=== PATIENT | male | born 1955 | race Caucasian/White ===

== ENCOUNTER 2017-03-15 03:37 | Emergency (ER) | payer BC, OTHER ==
[~2017-03-15] VITALS: Ht 175.3 cm; Wt 102.1 kg
[~2017-03-15 03:37] MED LIST: AMLODIPINE BESY10 MG PO; ASPIR-LOW81 MG PO; AUGMENTIN 875-1 EACH PO; BACTRIM DS TAB1 EACH PO; BENADRYL25 MG PO; CHLORTHALIDONE25 MG PO; CIPRO500 MG PO; CRUTCH1 EACH; CYCLOBENZAPRINE10 MG PO; DIAZEPAM5 MG PO; FLEXERIL10 MG PO; GABAPENTIN300 MG PO; HYDROCODON-ACE1 EAC8 PO; KLOR-CON 1010 MEQ PO; LASIX20 MG PO; LASIX40 MG PO; LOTRISONE CREAM15 GM TOP; MELOXICAM15 MG PO; METFORMIN HCL500 MG PO; METOPROLOL TART50 MG PO; NAPROSYN500 MG PO; NIACIN500 MG PO; NORCO 10-325 T1 EACH PO; NORCO 5-325 TA1 EACH PO; NORVASC10 MG PO; OMEPRAZOLE20 M1 PO; OMEPRAZOLE20 MG PO; PERCOCET 10-321 EACH PO; PERCOCET 7.5-31 EACH PO; PROVENTIL HFA6.7 GM INH; RANITIDINE HCL300 MG PO; REGLAN10 MG PO; SIMVASTATIN40 MG PO; TRAMADOL HCL50 MG PO; VITAMIN D1000 UNI1 PO
--- NOTE | 2017-03-15 16:48 | EKG ---
[facility] [address] [facility] [place] [address] Signed Sinus rhythm with occasional premature ventricular complexes Left axis deviation ST elevation in V2-V4 suggestive of Anterior wall myocardial infarction Abnormal ECG When compared with ECG of 23-FEB-2017 15:51, premature ventricular complexes are now present Reconfirmed by KIMMIE GONZALEZ MD ([id number]) on 03/15/2017 4:48:39 PM Electronically Signed By: KIMMIE GONZALEZ MD 03/15/17 1644 Electronically Signed By: KIMMIE GONZALEZ MD 03/15/17 1648 PATIENT NAME: RON MCKEON Electrocardiogram DATE OF : 53 PHYSICIAN: KIMMIE GONZALEZ MD REPORT #: [id number] REPORT IS CONFIDENTIAL AND NOT TO BE RELEASED WITHOUT AUTHORIZATION
--- NOTE | 2017-03-15 16:49 | EKG ---
[facility] [address] [facility] [place] [address] Signed Sinus rhythm with occasional premature ventricular complexes Left axis deviation Low voltage QRS ST elevation, consider anterolateral injury or acute infarct ACUTE NV / STEMI Abnormal ECG When compared with ECG of 15-MAR-2017 03:40, (Unconfirmed) ST more elevated in Anterior leads Confirmed by KIMMIE GONZALEZ MD ([id number]) on 03/15/2017 4:48:54 PM Electronically Signed By: KIMMIE GONZALEZ MD 03/15/17 1649 PATIENT NAME: RON MCKEON Electrocardiogram DATE OF : 53 PHYSICIAN: KIMMIE GONZALEZ MD REPORT #: [id number] REPORT IS CONFIDENTIAL AND NOT TO BE RELEASED WITHOUT AUTHORIZATION
== END 2017-03-15 05:12 | disposition short-term general hospital (02) ==
LOC: ED 03:37
DX: I21.09 ST elevation (STEMI) myocardial infarction involving other coronary artery of anterior wall (principal); I10 Essential (primary) hypertension; E11.9 Type 2 diabetes mellitus without complications; E78.00 Pure hypercholesterolemia, unspecified; E78.5 Hyperlipidemia, unspecified; F17.210 Nicotine dependence, cigarettes, uncomplicated; Z90.49 Acquired absence of other specified parts of digestive tract; Z79.899 Other long term (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; Z79.82 Long term (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; Z79.84 Long term (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 of oral hypoglycemic drugs
CPT/HCPCS: 71010; 80053; 84484; 85025; 93005; 93010; 96374; 96375; 99285; J1644; J2270

== ENCOUNTER 2017-05-09 21:46 | Emergency (ER) | payer BC, OTHER ==
[~2017-05-09] VITALS: Ht 175.3 cm; Wt 102.1 kg
[2017-05-09] MEDS ORDERED: ZESTRIL5 MG PO (22:02)
[2017-05-09] MEDS ORDERED: CARVEDILOL3.125 MG PO (22:02)
[2017-05-09] MEDS ORDERED: CLOPIDOGREL75 MG PO (22:03)
[2017-05-09] MEDS ORDERED: ATORVASTATIN CA40 MG PO (22:04)
[2017-05-09] MEDS ORDERED: NORCO 5-325 TA1 EACH PO (23:16)
== END 2017-05-09 23:43 | disposition home or self-care (01) ==
LOC: ED 21:46
DX: G57.93 Unspecified mononeuropathy of bilateral lower limbs (principal); I25.2 Old myocardial infarction; E78.00 Pure hypercholesterolemia, unspecified; I10 Essential (primary) hypertension; Z87.891 Personal history of nicotine dependence; Z86.74 Personal history of sudden cardiac arrest; Z90.49 Acquired absence of other specified parts of digestive tract; Z79.899 Other long term (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; Z79.82 Long term (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
CPT/HCPCS: 93971; 99284

== ENCOUNTER 2017-05-12 19:47 | Emergency (ER) | payer BC, OTHER ==
[~2017-05-12] VITALS: Ht 175.3 cm; Wt 83.9 kg
[~2017-05-12 19:47] MED LIST changes: +ATORVASTATIN CA40 MG PO; +CARVEDILOL3.125 MG PO; +CLOPIDOGREL75 MG PO; +ZESTRIL5 MG PO
[2017-05-12] MEDS ORDERED: NEURONTIN300 MG PO (21:14)
[2017-05-12] MEDS ORDERED: ULTRAM50 MG PO (21:14)
== END 2017-05-12 21:25 | disposition home or self-care (01) ==
LOC: ED 19:47
DX: G57.93 Unspecified mononeuropathy of bilateral lower limbs (principal); I10 Essential (primary) hypertension; I25.2 Old myocardial infarction; E78.00 Pure hypercholesterolemia, unspecified; Z87.891 Personal history of nicotine dependence; Z90.79 Acquired absence of other genital organ(s); Z79.899 Other long term (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; Z79.82 Long term (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; Z79.84 Long term (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 of oral hypoglycemic drugs
CPT/HCPCS: 99283

== ENCOUNTER 2017-07-08 23:57 | Emergency (ER) | payer BC, OTHER ==
[~2017-07-08] VITALS: Ht 175.3 cm; Wt 83.9 kg
[~2017-07-08 23:57] MED LIST changes: +NEURONTIN300 MG PO; +ULTRAM50 MG PO
[2017-07-09] MEDS ORDERED: TRAMADOL HCL50 MG PO (00:29)
== END 2017-07-09 00:51 | disposition home or self-care (01) ==
LOC: ED 23:57
DX: G62.9 Polyneuropathy, unspecified (principal); E78.00 Pure hypercholesterolemia, unspecified; I10 Essential (primary) hypertension; I25.2 Old myocardial infarction; Z87.891 Personal history of nicotine dependence; Z90.49 Acquired absence of other specified parts of digestive tract; Z95.5 Presence of coronary angioplasty implant and graft; Z79.899 Other long term (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; Z79.82 Long term (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
CPT/HCPCS: 99283

== ENCOUNTER 2017-09-07 23:35 | Emergency (ER) | payer BC, OTHER ==
[~2017-09-07] VITALS: Ht 175.3 cm; Wt 94.8 kg
[~2017-09-07 23:35] MED LIST changes: -RANITIDINE HCL300 MG PO; -ZESTRIL5 MG PO
--- NOTE | 2017-09-08 06:40 | EKG ---
[facility] [address] [facility] [place] [address] Signed Normal sinus rhythm Left axis deviation Nonspecific intraventricular block T wave abnormality, consider lateral ischemia Abnormal ECG When compared with ECG of 15-MAR-2017 04:28, Significant changes have occurred Confirmed by NEREYDA VELEZ MD ([id number]) on 09/08/2017 6:39:49 AM Electronically Signed By: NEREYDA VELEZ MD 09/08/17 0640 PATIENT NAME: RON MCKEON Electrocardiogram DATE OF : 53 PHYSICIAN: NEREYDA VELEZ MD REPORT #: [id number] REPORT IS CONFIDENTIAL AND NOT TO BE RELEASED WITHOUT AUTHORIZATION
== END 2017-09-08 03:46 | disposition home or self-care (01) ==
LOC: ED 23:35
DX: R11.2 Nausea with vomiting, unspecified (principal); R51 Headache; I25.2 Old myocardial infarction; E78.00 Pure hypercholesterolemia, unspecified; I10 Essential (primary) hypertension; Z87.891 Personal history of nicotine dependence; Z95.5 Presence of coronary angioplasty implant and graft; Z90.49 Acquired absence of other specified parts of digestive tract; Z79.82 Long term (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; Z79.899 Other long term (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
CPT/HCPCS: 80053; 84484; 85025; 93005; 93010; 96374; 96375; 99284; J1170; J2405

== ENCOUNTER 2017-10-03 04:49 | Emergency (ER) | payer BC, OTHER ==
[~2017-10-03] VITALS: Ht 175.3 cm; Wt 94.8 kg
--- OUTSIDE RECORDS SUMMARY | 2017-10-03 05:14 | XMS | Clinical Summary ---
Demographics + + + | Address | [address] [place] [address] [address] | | | [place] [address] | + + + | Home Phone | | + + + | Preferred Language | Unknown | + + + | Marital Status | | + + + | Faith Affiliation | NRP | + + + | Race | White | + + + | Ethnic Group | Not or | + + + Author + + + | Author | [facility] | + + + | Organization | [facility] | + + + | Address | Unknown | + + + | Phone | Unavailable | + + + Support +------+ + + + + | Name | Relationship | Address | Phone | +------+ + + + + ECON | [address] | | [place] [address] | +------+ + + + + Care Team Providers + +------+ + | Care Vacuum Tester Cans Name | Role | Phone | + +------+ + | Jamal Guerrero MD | PP | | + +------+ + Source Comments EULOGIO is fully live on both [facility] Ambulatory and [facility] InPatient.[facility] Allergies No Known Allergies Current Medications + + +---------+---------+------+------+-------+ | Prescription | Sig. | Disp. | Refills | Star | End | Statu | | | | | | t | Date | s | | | | | | Date | | | + + +---------+---------+------+------+-------+ | Aspirin 81 mg Oral | Take 81 mg by mouth | | | | | Activ | | Tablet | once daily. | | | | | e | + + +---------+---------+------+------+-------+ | metFORMIN 500 mg | Take 500 mg by mouth | | | | | Activ | | oral tablet | two times daily. | | | | | e | + + +---------+---------+------+------+-------+ | ranitidine 300 mg | Take 300 mg by mouth | | | | | Activ | | oral | once daily. | | | | | e | | tabletIndications: | Indications: | | | | | | | Heartburn | Heartburn | | | | | | + + +---------+---------+------+------+-------+ | warfarin 5 mg oral | Take 10 mg by mouth | 45 | 1 | / | | Activ | | tabletIndications: | on 04/02/2017, then | tablet | | 03/26 | | e | | JAVON thrombus | take 7.5 mg (one and | | | 17 | | | | | one-half tablets) | | | | | | | | daily starting | | | | | | | | 04/03/2017 | | | | | | | | Indications: JAVON | | | | | | | | thrombus | | | | | | + + +---------+---------+------+------+-------+ | acetaminophen 500 | Take 2 tablets by | 50 | 0 | 07/2 | | Activ | | mg oral | mouth three times | tablet | | 7/20 | | e | | tabletIndications: | daily as needed for | | | 17 | | | | Pain | moderate pain. | | | | | | | | Indications: Pain | | | | | | + + +---------+---------+------+------+-------+ | artificial tears | Instill 1 drop into | 15 mL | 0 | 07/2 | | Activ | | (dextran | both eyes as needed | | | 7/20 | | e | | 70-hypromellose) | (Dry Eyes). | | | 17 | | | | 0.1-0.3 % ophthalmic | Indications: Dry Eye | | | | | | | dropsIndications: | | | | | | | | Dry Eye | | | | | | | + + +---------+---------+------+------+-------+ | atorvastatin 40 mg | Take 1 tablet by | 30 | 0 | 07/2 | | Activ | | oral | mouth once daily. | tablet | | 7/20 | | e | | tabletIndications: | Indications: | | | 17 | | | | myocardial | myocardial | | | | | | | infarction | infarction | | | | | | | prevention | prevention | | | | | | + + +---------+---------+------+------+-------+ | clopidogrel 75 mg | Take 1 tablet by | 30 | 0 | 07/2 | | Activ | | oral | mouth once daily. | tablet | | 7/20 | | e | | tabletIndications: | Indications: | | | 17 | | | | myocardial | myocardial | | | | | | | infarction | infarction | | | | | | | prevention | prevention | | | | | | + + +---------+---------+------+------+-------+ | cholecalciferol | Take 1 tablet by | 30 | 0 | 07/2 | | Activ | | (Vitamin D3) | mouth once daily. | tablet | | 7/20 | | e | | (VITAMIN D3) 1,000 | Indications: Vitamin | | | 17 | | | | unit oral | D Deficiency | | | | | | | tabletIndications: | | | | | | | | Vitamin D Deficiency | | | | | | | + + +---------+---------+------+------+-------+ | isosorbide | Take 1 tablet by | 30 | 0 | 07/2 | | Activ | | mononitrate CR 30 mg | mouth once daily. | tablet | | 7/20 | | e | | oral tablet | Indications: Chronic | | | 17 | | | | extended release 24 | Stable Angina | | | | | | | hrIndications: | Pectoris | | | | | | | Chronic Stable | | | | | | | | Angina Pectoris | | | | | | | + + +---------+---------+------+------+-------+ | lisinopril 5 mg | Take 1 tablet by | 30 | 0 | 07/2 | | Activ | | oral | mouth once daily. | tablet | | 7/20 | | e | | tabletIndications: | Indications: | | | 17 | | | | myocardial | Myocardial | | | | | | | infarction | Infarction | | | | | | + + +---------+---------+------+------+-------+ | melatonin 3 mg | Take 1 tablet by | 30 | 0 | 07/2 | | Activ | | oral | mouth once daily in | tablet | | 7/20 | | e | | tabletIndications: | the evening. | | | 17 | | | | Delirium | Indications: | | | | | | | | Delirium | | | | | | + + +---------+---------+------+------+-------+ | metoprolol | Take 1 tablet by | 30 | 0 | 07/2 | | Activ | | succinate 25 mg oral | mouth once daily. | tablet | | 7/20 | | e | | tablet extended | Indications: | | | 17 | | | | release 24 | Myocardial | | | | | | | hrIndications: | Reinfarction | | | | | | | Myocardial | Prevention | | | | | | | Reinfarction | | | | | | | | Prevention | | | | | | | + + +---------+---------+------+------+-------+ | oxyCODONE | Take 1-2 tablets by | 50 | 0 | 07/2 | | Activ | | (immediate release) | mouth every four | tablet | | 7/20 | | e | | 5 mg oral | hours as needed for | | | 17 | | | | tabletIndications: | severe pain. | | | | | | | Pain | Indications: Pain | | | | | | + + +---------+---------+------+------+-------+ | polyethylene | Mix 1 packet and | 30 | 0 | 07/2 | | Activ | | glycol 17 gram oral | take orally twice | packet | | 7/20 | | e | | powder in | daily as needed | | | 17 | | | | packetIndications: | (constipation). | | | | | | | constipation | Indications: | | | | | | | | constipation | | | | | | + + +---------+---------+------+------+-------+ | senna-docusate | Take 1 tablet by | 30 | 0 | 03/08 | | Activ | | 8.6-50 mg oral | mouth two times | tablet | | 03/26 | | e | | tabletIndications: | daily. Hold for | | | 17 | | | | constipation | loose stools | | | | | | | | Indications: | | | | | | | | constipation | | | | | | + + +---------+---------+------+------+-------+ Active Problems + + + | Problem | Noted Date | + + + | Generalized pain | 03/24/2017 | + + + + + | Last Assessment & Plan: Variously reports in back, calves, | | inguinal regions bilaterally. Takes hydrocodone at home, 10-325 | | q6. -oxy 5-15 q3prn -apap 650 q6 (got 1000 q6 for about 7 days) | | - for breakthrough, has not required in some time -lido patches | | added 03/24 | + + + + + | Acute delirium | 03/23/2017 | + + + + + | Last Assessment & Plan: With sleep-wake disturbance. | | -Frequent reorientation, maintenance of sleep-wake cycles | | -seroquel qHS | + + + + + | Primary insomnia | 03/23/2017 | + + + + + | Last Assessment & Plan: More evident since extubation and | | sedation wean. 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 | + + + + + | Abdominal aortic aneurysm (AAA) without rupture (HCC) | 03/18/2017 | + + + + + | Last Assessment & Plan: Disclosed by ultrasound 03/17. 3.9cm | | at widest. Infrarenal. | + + + + + | Opacity of lung on imaging study | 03/16/2017 | + + + + + | Last Assessment & Plan: Greatest in RUL. Asp pna vs pulmonary | | edema. 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 | | -secretions improving, cough strong -s/p 7 days | | vanc-mazin 03/15-03/22 -not following with imaging -continue daily | | CBC | + + + + + | Stress hyperglycemia | 03/16/2017 | + + + + + | Last Assessment & Plan: Endotool from admission | | -transitioned to subcu 03/24 | + + + + + | Coronary 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 | 03/15/2017 | + + + | At risk for electrolyte imbalance | 03/15/2017 | + + + + + | Last Assessment & Plan: Renal function set and magnesium | | dailyICU lytes protocol begun 710 PM as EGFR came below 6020 meq | | KCl (PO) qAM scheduled started 03/23PM dose of 20 KCl started | | 03/24K > 4.5, Mag > 2.5 | |K > 4.5, Mag > 2.5 | + + + + + | Neck pain | 02/19/2012 | + + + | Facet arthropathy, cervical | 02/19/2012 | + + + | Cervical spondylosis without myelopathy | 02/19/2012 | + + + | Impingement syndrome of left shoulder | 02/19/2012 | + + + | Physical deconditioning | 02/19/2012 | + + + + + | Last Assessment & Plan: PT IScheryl | | -emphasizing long rehab process ahead | + + + + + | Post traumatic stress disorder | 02/19/2012 | + + + | Smoking | 02/19/2012 | + + + | Cervicogenic headache | 02/19/2012 | + + + | Tobacco use | | + + + + + | Last Assessment & Plan: Patient has stated he is "done" | | smoking and has declined nicotine replacement. | + + + +---+ | Hypertension | | + +---+ | Hypercholesterolemia | | + +---+ Resolved Problems + + + + | Problem | Noted | Resolved | | | Date | Date | + + + + | On tube feeding diet | 03/20/20 | | | | 17 | 7 | + + + + + + | Last Assessment & Plan: RD note 03/20:"Rec changing TF formula | | to Replete without fiber (high protein formula in EPIC) @ 55 | | ml/hr x 22 hrs/day (hold one hour before and after warfarin) + 2 | | packets prosource BID to provide 1450 kcal (1808 kcal with | | propofol), 137g pro, and ~1000 ml useable fluid/day-When propofol | | is weaning down, increase Replete to 70 ml/hr x 22 hrs/day (hold | | for warfarin) + one packet prosource TID to provide 1720 kcal, | | 144g pro, and ~1290 ml useable fluid per day" -continuous feeds | | stopped 03/24 AM -will start night time feeds if PO not adequate | + + + + + + | Hypernatremia | 03/20/20 | | | | 17 | 7 | + + + + + + | Last Assessment & Plan: Has been climbing since admission. | | 4.5L FWD 03/21. Will diurese with free water replacement beginning | | today.03/22: increase FW flushes to 125/hr | + + + + + + | Tachypnea | 03/20/20 | | | | 17 | 7 | + + + + + + | Last Assessment & Plan: Two tachypneic episodes overnight | | requiring oxygen requirement. Suspect pulmonary edema with likely | | pain vs agitation vs fever component. -monitor closely -CXR | | shows worsening groundglass opacity in 24hr interval | + + + + + + | Shivering | 03/18/20 | | | | 17 | 7 | + + + + + + | Last Assessment & Plan: In setting of TTM. Causing | | desaturation. Requiring propofol rates as high as 60. Will dc | | TTM. -03/19: still intermittent w/o TTM, but not causing desats | | -continue to monitor | + + + + + + | Abnormal CK | 03/17/20 | | | | 17 | 7 | + + + + + + | Last Assessment & Plan: 10,000 --> to 15K --> back to 10K | | Lactate stable, cleared | | Cr up a tick in setting of vigorous diuresis | | Unclear if related to STEMI vs left foot | | ECMO now out | + + + + + + | Cardiogenic shock (HCC) | 03/15/20 | | | | 17 | 7 | + + + + + + | Last Assessment & Plan: S/p IABP 03/15 - 03/16 | | S/p VA ECMO 03/15-03/19 | | IABP and R fem venous sheath dc'd 03/16 PM | | Epi at 0.02 | | ECHO 03/17: | | akinetic LAD, apical lateral segments | | hypokinetic RCA, mid-anterolateral segments | | Overall LV function has been improving | | -a-line dc'd 03/23 | + + + + + + | Acute kidney injury (HCC) | 03/15/20 | | | | 17 | 7 | + + + + + + | Last Assessment & Plan: Cr stable at 1.3 --> 1.5 | | Excellent UOP | | On lasix gtt, now at 10mg/hr | | Holding nephrotoxic agents as able | + + + + + + | Lactic acid acidosis | 03/15/20 | | | | 17 | 7 | + + + + + + | Last Assessment & Plan: Improved, not following lactate | + + + + + + | Acute respiratory failure with hypoxia and hypercapnia ([facility]) | 03/15/20 | | | | 17 | 7 | + + + + + + | Last Assessment & Plan: Had waxing and waning vent | | requirements during first week of stayExtubated 03/22, started on | | NC B7Sozja infusion begun 03/22 for daily goal -1 to -2LAfterload | | reduction for SBC < 130 to prevent flash pulmonary edema | + + + + + + | STEMI (ST elevation myocardial infarction) ([facility]) | 03/15/20 | | | | 17 | 7 | + + + + + + | Overview: Xience Alpine 3.0 mm X 23 mm, Xience Alpine 2.5 mm | | X 18 mm Last Assessment & Plan: Initially had lesion in | | proximal LAD and distal LM, but then acutely thrombosed/dissected | | his left main coronary artery. S/p ANY X2. Plavix loaded at the | | outside hospital and transported on ticagrelor and bivalirudin. | | Troponin peaked at 576 on 03/15. - DAPT: ASA 81 mg daily + Plavix | | 75 mg daily -ASA dc'd 03/23 (WOEST trial, Lancet 2013) to reduce | | bleeding risk -continue plavix, warfarin | + + + + + + | Tongue laceration | 03/15/20 | | | | 17 | 7 | + + + + + + | Last Assessment & Plan: Right posterior tongue was lacerated | | during the difficult intubation Packed with combat gauze on | | -03/20: ETT with minimal bloody secretions, old | | appearing | + + + + + + | On mechanically assisted ventilation (HCC) | 03/15/20 | | | | 17 | 7 | + + + + + + | Last Assessment & Plan: Mechanical ventilation as | | hemodynamics stabilize Propofol for sedation, failed trial of | | precedex 03/18 Soft restraints until extubatedPulmonary Toilet, | | added metanebs and albuterol today for thick secretionsTitrate O2 | | for sats > 92% On V/AC at 60% FIO2 and tolerating it better than | | before03/22: Plan for SBT and extubation todayExtubated. | | Maintaining O2 sats. Monitoring closelySBP < 130 to prevent flash | | pulm edema | |SBP < 130 to prevent flash pulm edema | + + + + + + | Ventricular fibrillation (HCC) | 03/15/20 | | | | 17 | 7 | + + + + + + | Last Assessment & Plan: Patient went into VFib during cath | | lab procedure at [facility]. Was shocked 17 times | | Targeted temperature management resumed overnightNow that more | | than 72 hrs post arrest, will not pursue TTMHas ectopy when K low | | but no runs of VT or VF since admission | + + + + + + | Postoperative anemia due to acute blood loss | 03/15/20 | | | | 17 | 7 | + + + + + + | Last Assessment & Plan: Transfused 2u 03/17-03/18 with improved | | HR from 140s to 120sHeparin gtt on VTE protocolWarfarin begun | | changed all blood draws to pedi tubes | |03/22 changed all blood draws to pedi tubes | + + Family History + + +------+ + | Medical History | Relation | Name | Comments | + + +------+ + | Hypertension | Other | | | + + +------+ + | Lipid Disorder | Other | | | + + +------+ + | Arthritis | Other | | | + + +------+ + | Cancer | Other | | | + + +------+ + + +------+ + + | Relation | Name | Status | Comments | + +------+ + + | Father | | | from heart disease | | | | (Age | | | | | 62) | | + +------+ + + | Mother | | Alive | | + +------+ + + | Other | | | | + +------+ + + | Other | | | | + +------+ + + | Other | | | | + +------+ + + | Other | | | | + +------+ + + Social History + + + +--------+ + | Tobacco Use | Types | Packs/Day | Years | Date | | | | | Used | | + + + +--------+ + | Current Every Day | Cigarettes | 1 | | Started: 09/07/1972 | | Smoker | | | | | + + + +--------+ + + +---+---+ + | Smokeless Tobacco: | | | Quit: | | Former User | | | 03/15/20 | | | | | 17 | + +---+---+ + + + | Tobacco Cessation: Ready to Quit: Yes; Counseling Given: Yes | | Comments: Currently denies any cravings, does not request NRT | + + + + +---------+ + | Alcohol Use | Drinks/We | oz/Week | Comments | | | ek | | | + + +---------+ + | No | | | Remote | + + +---------+ + + + + | Sex Assigned at | Date Recorded | | | | + + + | Not on file | | + + + Last Filed Vital Signs + + + + | Vital Sign | Reading | Time Taken | + + + + | Blood Pressure | 118/85 | 04/02/2017 8:09 AM PDT | + + + + | Pulse | 93 | 04/02/2017 8:09 AM PDT | + + + + | Temperature | 36.4 C (97.5 F) | 04/02/2017 8:09 AM PDT | + + + + | Respiratory Rate | 16 | 04/02/2017 8:09 AM PDT | + + + + | Oxygen Saturation | 98% | 04/02/2017 8:09 AM PDT | + + + + | Inhaled Oxygen | - | - | | Concentration | | | + + + + | Weight | 86.2 kg (190 lb 0.6 | 04/02/2017 6:27 AM PDT | | | oz) | | + + + + | Height | 175 cm (5' 8.9") | 03/22/2017 8:24 AM PDT | + + + + | Body Mass Index | 28.15 | 04/02/2017 6:27 AM PDT | + + + + Plan of Treatment + + + + + | Health Maintenance | Due Date | Last Done | Comments | + + + + + | INFLUENZA VACCINE | | | | | (FLU SHOT) | 7 | | | + + + + + Results Not on filefrom Last 3 Months
--- OUTSIDE RECORDS SUMMARY | 2017-10-03 05:14 | XMS | Clinical Summary ---
Demographics + + + | Address | [address] [place] [address] [address] | | | [place] [address] | + + + | Home Phone | | + + + | Preferred Language | Unknown | + + + | Marital Status | | + + + | Moravian Affiliation | NRP | + + + [...] [address] | | [place] [address] | +------+ + + + + Care Team Providers + +------+ + | Care Catering Sous Chef Name | Role | Phone | + +------+ + | Jamal Guerrero MD | PP | | + +------+ + Source Comments EULOGIO is fully live on both [facility] Ambulatory and [facility] InPatient.[facility] Allergies No Known Allergies Current Medications + [...] edema. 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 | | -secretions improving, cough strong -s/p 7 days | | vanc-maizn 03/15-03/22 -not following with imaging -continue daily [...] Acute respiratory failure with hypoxia and hypercapnia ([facility]) | 03/15/20 | | | | 17 | 7 | + + + + + + | Last Assessment & Plan: Had waxing and waning vent | | requirements during first week of stayExtubated 03/22, started on | | NC A1Fehwk infusion begun 03/22 for daily goal -1 to -2LAfterload | | reduction for SBC < 130 to prevent flash pulmonary edema | + + + + + + | STEMI (ST elevation myocardial infarction) ([facility]) | 03/15/20 | | | | 17 [...] during cath | [facility] Was shocked 17 times | | Targeted [...]
--- NOTE | 2017-10-03 16:25 | EKG ---
[facility] [address] [facility] [place] [address] Signed Sinus tachycardia Possible Left atrial enlargement Left bundle branch block Abnormal ECG When compared with ECG of 07-SEP-2017 23:57, Vent. rate has increased BY 58 BPM Left bundle branch block has replaced Nonspecific intraventricular block Confirmed by KIMMIE GONZALEZ MD ([id number]) on 10/03/2017 4:25:21 PM Electronically Signed By: KIMMIE GONZALEZ MD 10/03/17 1625 PATIENT NAME: RON MCKEON Electrocardiogram DATE OF : 53 PHYSICIAN: KIMMIE GONZALEZ MD REPORT #: [id number] REPORT IS CONFIDENTIAL AND NOT TO BE RELEASED WITHOUT AUTHORIZATION
--- NOTE | 2017-10-03 16:26 | EKG ---
[facility] [address] [facility] [place] [address] Signed Poor data quality Sinus tachycardia Possible Left atrial enlargement Left bundle branch block Abnormal ECG No previous ECGs available Confirmed by KIMMIE GONZALEZ MD ([id number]) on 10/03/2017 4:25:48 PM Electronically Signed By: KIMMIE GONZALEZ MD 10/03/17 1626 PATIENT NAME: RON MCKEON Electrocardiogram DATE OF : 53 PHYSICIAN: KIMMIE GONZALEZ MD REPORT #: [id number] REPORT IS CONFIDENTIAL AND NOT TO BE RELEASED WITHOUT AUTHORIZATION
== END 2017-10-03 08:02 | disposition short-term general hospital (02) ==
LOC: ED 04:49
DX: I11.0 Hypertensive heart disease with heart failure (principal); I50.9 Heart failure, unspecified; J96.90 Respiratory failure, unspecified, unspecified whether with hypoxia or hypercapnia; I25.2 Old myocardial infarction; F17.200 Nicotine dependence, unspecified, uncomplicated; E78.00 Pure hypercholesterolemia, unspecified; Z79.899 Other long term (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; Z95.5 Presence of coronary angioplasty implant and graft; Z79.82 Long term (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
CPT/HCPCS: 31500; 36600; 71045; 80053; 81001; 82803; 83605; 83880; 84484; 85025; 87040; 87502; 93005; 93010; 94002; 94640; 94660; 96374; 96375; 96376; 99291; J0330; J0696; J2704; J3010

== ENCOUNTER 2017-11-13 01:28 | Observation (INO) | payer OTHER ==
[~2017-11-13] VITALS: Ht 175.3 cm; Wt 90.5 kg
--- OUTSIDE RECORDS SUMMARY | ~2017-11-13 | XMS | Clinical Summary ---
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 | tablet | | 720 | | e | | (VITAMIN D3) [...] take orally twice | packet | | 20 | | e | | powder in [...] | 07/2 | | Activ | | 8.6-50 mg oral | mouth two times | tablet | | 7/20 | | e | | tabletIndications: | daily. Hold for | | | 17 | | | | constipation | loose stools | | | | | | | | Indications: | | | | | | | | constipation | | | | | | + + +---------+---------+------+------+-------+ | gabapentin 300 mg | Take 1 capsule by | 90 | 0 | 02/1 | | Activ | | oral | mouth three times | capsule | | 0/20 | | e | | capsuleIndications: | daily. Indications: | | | 18 | | | | Postoperative Acute | Postoperative Acute | | | | | | | Pain | Pain | | | | | | + + +---------+---------+------+------+-------+ | metFORMIN 500 mg | Take 1 tablet by | 60 | 0 | 02/1 | | Activ | | oral | mouth two times | tablet | | 0/20 | | e | | tabletIndications: | daily. Resume on | | | 18 | | | | type 2 diabetes | 10/19. Indications: | | | | | | | mellitus | type 2 diabetes | | | | | | | | mellitus | | | | | | + + +---------+---------+------+------+-------+ | aspirin chewable | Chew and swallow 1 | 30 | 11 | 02/1 | | Activ | | 81 mg oral | tablet once daily. | tablet | | 09/26 | | e | | tablet,chewableIndic | Indications: | | | 18 | | | | ations: myocardial | myocardial | | | | | | | infarction | infarction | | | | | | | prevention | prevention | | | | | | + + +---------+---------+------+------+-------+ | clopidogrel 75 mg | Take 1 tablet by | 30 | 11 | 02/1 | | Activ | | oral | mouth once daily. | tablet | | 120 | | e | | tabletIndications: | Indications: | | | 18 | | | | myocardial | myocardial | | | | | | | infarction | infarction | | | | | | | prevention | prevention | | | | | | + + +---------+---------+------+------+-------+ | metoprolol | Take 1 tablet by | 30 | 0 | 02/ | | Activ | | succinate 25 mg oral | mouth once daily. | tablet | | 0/20 | | e | | tablet extended | Indications: | | | 18 | | | | release 24 | Myocardial | | | | | | | hrIndications: | Reinfarction | | | | | | | Myocardial | Prevention | | | | | | | Reinfarction | | | | | | | | Prevention | | | | | | | + + +---------+---------+------+------+-------+ | nitroglycerin 0.4 | Place 1 tablet under | 25 | 2 | 02/1 | | Activ | | mg sublingual | tongue and allow to | tablet | | 0/20 | | e | | tablet, sublingual | dissolve every 5 | | | 18 | | | | | minutes as needed | | | | | | | | for chest pain. | | | | | | | | Max of 3 doses in 15 | | | | | | | | minutes. | | | | | | + + +---------+---------+------+------+-------+ | acetaminophen 500 | Take 2 tablets by | 100 | 0 | 02/1 | | Activ | | mg oral | mouth every six | tablet | | 0/20 | | e | | tabletIndications: | hours as needed. | | | 18 | | | | Pain | Indications: Pain | | | | | | + + +---------+---------+------+------+-------+ | pantoprazole 40 mg | Take 1 tablet by | 60 | 11 | 02/1 | | Activ | | oral tablet,delayed | mouth two times | tablet | | 0/20 | | e | | release (DR/EC) | daily. | | | 18 | | | + + +---------+---------+------+------+-------+ | atorvastatin 80 mg | Take 1 tablet by | 30 | 11 | 02/1 | | Activ | | oral | mouth once daily. | tablet | | 1/20 | | e | | tabletIndications: | Indications: | | | 18 | | | | myocardial | myocardial | | | | | | | infarction | infarction | | | | | | | prevention | prevention | | | | | | + + +---------+---------+------+------+-------+ Active Problems + + + | Problem | Noted Date | + + + | NSTEMI (non-ST elevated myocardial infarction) (HCC) | 10/17/2017 | + + + | Stenosis of coronary artery stent | 10/17/2017 | + + + | Chronic systolic congestive heart failure (HCC) | 10/17/2017 | + + + | Encounter for insertion of cardiac resynchronization therapy | 10/17/2017 | | defibrillator (ENROBER-D) | | + + + | Influenza, pneumonia | 10/17/2017 | + + + | Prediabetes | 10/17/2017 | + + + | Paroxysmal atrial flutter (HCC) | 10/12/2017 | + + + | Generalized pain | 03/24/2017 | + + + + + | Last Assessment & Plan: Variously reports in back, calves, | | inguinal regions bilaterally. Takes hydrocodone at home, 10-325 | | q6. -oxy 5-15 q3prn -apap 650 q6 (got 1000 q6 for about 7 days) | | -hm for breakthrough, has not required in some [...] edema. 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 | | -secretions improving, cough strong -s/p 7 days | | rigo 03/15-03/22 -not following with imaging -continue daily | | CBC | + + + + + | Stress hyperglycemia | 03/16/2017 | + + + + + | Last Assessment & Plan: Endotool from admission | | -transitioned to subcu 03/24 | + + + + + | Coronary 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 | 03/15/2017 | + + + | Neck pain | 02/19/2012 | + + + | Facet arthropathy, cervical | 02/19/2012 | + + + | Cervical spondylosis without myelopathy | 02/19/2012 | + + + | Impingement syndrome of left shoulder | 02/19/2012 | + + + | Physical deconditioning | 02/19/2012 | + + + + + | Last Assessment & Plan: PT, IS, metaminoobs | | -emphasizing long rehab process ahead [...] Acute respiratory failure with hypoxia and hypercapnia (HCC) | 03/15/20 | | | | 17 | 7 | + + + + + + | Last Assessment & Plan: Had waxing and waning vent | | requirements during first week of stayExtubated 03/22, started on | | NC W7Mgacq infusion begun 03/22 for daily goal -1 to -2LAfterload | | reduction for SBC < 130 to prevent flash pulmonary edema | + + + + + + | STEMI (ST elevation myocardial infarction) (HCC) | 03/15/20 | | | | [...] during cath | | [facility]. Was shocked 17 times | | [...] + + | Last Assessment & Plan: Gissel Brnadtu 03/17-03/18 with improved | | HR from 140s to 120sHeparin gtt on VTE protocolTrudy begun | | changed all blood draws to pedi tubes | |03/22 changed all blood draws to pedi tubes | + + Encounters +--------+ + + + + | Date | Type | Specialty | Care Team | Description | +--------+ + + + + | 10/19/ | Pharmacy | | | | | 2017 | Visit | | | | +--------+ + + + + | 10/17/ | Pharmacy | | | | | 2017 | Visit | | | | +--------+ + + + + | 10/16/ | Anesthesia | | Terry Garvin, | | | 2018 | Event | | ORNAMENT STITCHER | | +--------+ + + + + | 10/12/ | Hospital | | | | | 2017 | Encounter | | | | +--------+ + + + + | 10/12/ | Telephone | | Rodríguez Peters | Radiology Incomplete | | 2017 | | | RT | Exam | +--------+ + + + + | 10/11/ | Procedure | | | | | 2017 | Pass | | | | +--------+ + + + + | 10/10/ | Hospital | | Khurram Bedoya | | | 2018 - | Encounter | | MD Kari | | | | | | | | | 02/10/ | | | | | | 2018 | | | | | +--------+ + + + + +---+ + | | Discharge | | | Summaries | | | - Chandu, | | | Glenn A, | | | PA-C - | | | 10/17/2017 | | | 2:23 PM | | | PST | | | Formatting | | | of this | | | note may be | | | different | | | from the | | | original.IN | | | PATIENT | | | CARDIOLOGY | | | DISCHARGE | | | SUMMARY | | | PCP: | | | Chato | | | MD Dano | | | Referring | | | Physician & | | | | | | Institution | | | : Other | | | Dictation | | | Primary/Out | | | patient | | | Cardiologis | | | t: Dr | | | Jamal | | | Cesar | | | MDInpatient | | | Attending | | | Physician: | | | Khurram Pierce | | | MD Aureliano | | | | | | Author/Disc | | | harging | | | Provider: | | | GLENN A | | | CHANDU, | | | PA-CAdmissi | | | on Date: | | | 10/10/2017 | | | Discharge | | | Date: | | | 10/17/2017 | | | Active | | | Hospital | | | Problems1) | | | *NSTEMI | | | (non-ST | | | elevated | | | myocardial | | | infarction) | | | (HCC)2) | | | Coronary | | | artery | | | disease3) | | | Stenosis of | | | coronary | | | artery | | | stent4) | | | Ischemic | | | cardiomyopa | | | thy5) | | | Chronic | | | systolic | | | congestive | | | heart | | | failure | | | (HCC)7) | | | Encounter | | | for | | | insertion | | | of cardiac | | | resynchroni | | | zation | | | therapy | | | defibrillat | | | or | | | (ENROBER-D)8) | | | Paroxysmal | | | atrial | | | flutter | | | (HCC)9) | | | Influenza, | | | [id number] | | | ) | | | Prediabetes | | | 11) | | | Tobacco | | | useProcedur | | | es 10/15/17: | | | Successful | | | percutaneou | | | s coronary | | | interventio | | | n to the | | | ostial left | | | | | | circumflex. | | | One 3.0 x | | | 18 mm | | | Resolute | | | Alvaro | | | drug-elutin | | | g stent. | | | Successful | | | percutaneou | | | s coronary | | | translumina | | | l | | | angioplasty | | | of the | | | distal left | | | main | | | extending | | | into the | | | left | | | anterior | | | descending | | | coronary | | | artery with | | | final | | | kissing | | | balloon | | | inflation | | | with a 3.5 | | | mm | | | noncomplian | | | t and a 2.5 | | | mm | | | compliant | | | balloon.10/16 | | | :1) EP | | | study with | | | VT | | | induction | | | 2) ENROBER-D | | | implantatio | | | n Reason | | | For | | | Admission: | | | | | | Considerati | | | on of | | | complex PCI | | | vs CABG | | | for | | | in-stent | | | restenosis | | | of LCx and | | | LM/LAD | | | stents | | | Hospital | | | Course: | | | Please see | | | H&P for | | | hospital | | | course at | | | [facility] | | | prior to | | | transfer to | | | [facility]. | | | Ron | | | Mike | | | is a 61 | | | year old | | | male with | | | past | | | medical | | | history of | | | CAD s/p | | | anterior | | | STEMI | | | 03/2017 with | | | | | | cardiogenic | | | shock s/p | | | PCI with | | | ANY to | | | LM/LAD and | | | LCx with | | | ECMO | | | support, | | | systolic | | | heart | | | failure (EF | | | 20-25%), | | | ischemic | | | cardiomyopa | | | thy, | | | hypertensio | | | n, Atrial | | | flutter, | | | prior | | | tobacco | | | use, | | | Influenza A | | | with | | | septic | | | shock | | | (10/03) | | | requiring | | | intubation | | | and | | | mechanical | | | ventilation | | | , HAP on | | | treatment | | | who was | | | admitted in | | | transfer | | | [place] [facility] [place] | | | 10/11 for | | | considerati | | | on of PCI | | | vs CABG in | | | setting of | | | NSTEMI with | | | in stent | | | retenosis | | | of both LM | | | into LAD | | | and LCx | | | stents. | | | Here, he | | | was | | | evaluated | | | by CTS and | | | Interventio | | | nal | | | cardiology. | | | He | | | underwent | | | cardiac PET | | | and | | | resting NM | | | perfusion | | | study which | | | showed no | | | viable | | | myocardium, | | | thus CABG | | | was not an | | | option. On | | | 10/15 he | | | underwent | | | angiography | | | /PCI with | | | impella | | | support--gonzales | | | d one 3.0 x | | | 18 mm | | | Resolute | | | Alvaro | | | drug-elutin | | | g stent | | | placed in | | | ostial L Cx | | | in | | | addition to | | | | | | translumina | | | l | | | angioplasty | | | of the | | | distal left | | | main | | | extending | | | into the | | | left | | | anterior | | | descending | | | coronary | | | artery with | | | final | | | kissing | | | balloon | | | inflation | | | with a 3.5 | | | mm | | | noncomplian | | | t and a 2.5 | | | mm | | | compliant | | | balloon. He | | | did well | | | with this | | | procedure, | | | then went | | | for an EP | | | study the | | | following | | | day on 10/16. | | | VT was | | | induced, | | | therefore a | | | ENROBER-D was | | | implanted. | | | He is | | | discharging | | | home in | | | good | | | condition | | | with follow | | | up in 1 | | | week with | | | his | | | Cardiologis | | | t. The | | | following | | | problems | | | were | | | addressed | | | this | | | hospitaliza | | | tion:# CAD | | | with in | | | stent | | | resteonsis | | | of LM/LAD | | | and LCx | | | stents# | | | NSTEMI | | | History of | | | anterior | | | STEMI and | | | cardiac | | | arrest | | | requiring | | | shocks | | | (03/15/2017 | | | requiring | | | ECMO | | | support and | | | | | | intra-aorti | | | c balloon | | | pump | | | placement) | | | s/p PCI | | | and stent | | | placement | | | in LCx | | | & LM/LAD. | | | He then | | | developed | | | NSTEMI | | | 10/03/17 | | | (trop | | | peaked at | | | 26) in | | | setting of | | | severe | | | sepsis due | | | to | | | influenza | | | and | | | underwent a | | | coronary | | | angiogram | | | at [facility] which | | | revealed | | | in stent | | | re-stenosis | | | of both LM | | | into LAD | | | and LCx | | | stents, | | | mild | | | disease of | | | RCA. | | | Transferred | | | to [facility] | | | for further | | | | | | evaluation. | | | CTS was | | | consulted | | | for | | | considerati | | | on of CABG | | | vs complex | | | PCI. Due to | | | nonviable | | | myocardium | | | shown on | | | cardiac PET | | | and | | | resting NM | | | perfusion | | | study, PCI | | | was chosen | | | over CABG. | | | On 10/15 he | | | underwent | | | angiography | | | /PCI with | | | impella | | | support--gonzales | | | d one 3.0 x | | | 18 mm | | | Resolute | | | Alvaro | | | drug-elutin | | | g stent | | | placed in | | | ostial L Cx | | | in | | | addition to | | | | | | translumina | | | l | | | angioplasty | | | of the | | | distal left | | | main | | | extending | | | into the | | | left | | | anterior | | | descending | | | coronary | | | artery with | | | final | | | kissing | | | balloon | | | inflation | | | with a 3.5 | | | mm | | | noncomplian | | | t and a 2.5 | | | mm | | | compliant | | | balloon. | | | | | | | | | --ASA | | | 81 mg daily | | | + plavix | | | 75mg daily | | | (likely | | | indefinitel | | | y unless he | | | has a | | | major | | | bleed) | | | | | | - | | | -atorvastat | | | in 80 mg | | | daily | | | | | | | | | --metop | | | rolol | | | succinate | | | 25mg daily | | | | | | -- | | | pantoprazol | | | e for | | | prophy | | | given DAPT | | | -- IMDUR | | | stopped due | | | to soft | | | BPs # | | | Chronic | | | biventricul | | | ar systolic | | | heart | | | failure | | | with | | | reduced | | | systolic | | | function | | | (EF | | | 30-35%)# | | | Ischemic | | | cardiomyopa | | | thy NYHA | | | class II, | | | Stage C. | | | Etiology | | | ischemic. | | | TTE at [facility] | | | showed EF | | | 30-35%, | | | mildly | | | reduced RV | | | function, | | | mild | | | dilation of | | | ascending | | | aorta. Did | | | not require | | | diuretics | | | this | | | admission. | | | Given EF | | | remains low | | | and | | | myocardial | | | perfusion | | | study shows | | | extensive | | | severe | | | perfusional | | | defect | | | involving | | | 40% of the | | | LV | | | myocardium | | | with an EF | | | of 24%, EP | | | was | | | consulted | | | for | | | considerati | | | on of ICD. | | | On 10/16 he | | | underwent | | | an EP study | | | to assess | | | for | | | inducible | | | VT which | | | was | | | positive | | | and thus a | | | ENROBER-D was | | | placed. | | | | | | | | | --preload: | | | no need for | | | | | | diuresis | | | | | | | | | --afterloa | | | d: holding | | | lisinopril | | | due to soft | | | BPs but | | | would | | | consider | | | restarting | | | in | | | outpatient | | | setting by | | | Cardiology | | | | | | | | | --contra | | | ctility:met | | | oprolol | | | succinate | | | 25mg | | | daily | | | | | | -- | | | aldosterone | | | | | | antagonist: | | | pt unable | | | to tolerate | | | | | | spironolact | | | one due to | | | hyperkalemi | | | a in the | | | past | | | | | | | | | --ICD: | | | placed by | | | EP 2/9, | | | ENROBER-D | | | -- | | | will need 1 | | | week f/u | | | for wound | | | check, then | | | 1 month | | | device | | | check with | | | EP | | | -- f/u | | | with | | | outpatient | | | cardiologis | | | t 2-4 | | | weeks# | | | Paroxysmal | | | Aflutter | | | Noted | | | Aflutter | | | with RVR at | | | admission | | | [facility] [place] [facility] [place]; | | | treated | | | with | | | amiodarone | | | infusion. | | | He was | | | transitione | | | d to oral | | | amiodarone | | | and | | | maintained | | | normal | | | rhythm. | | | Given that | | | the | | | aflutter | | | occurred in | | | setting of | | | severe | | | sepsis, | | | will not | | | continue | | | amiodarone | | | or | | | warfarin. | | | If he has | | | recurrent | | | arrhythmia, | | | this will | | | be noted on | | | ENROBER-D and | | | could | | | consider | | | anticoagula | | | tion at | | | that time. | | | However, he | | | requires | | | DAPT and | | | has a | | | possible | | | history of | | | recent GIB, | | | so triple | | | therapy | | | should be | | | avoided if | | | not | | | necessary | | | | | | | | | --rate | | | control: | | | metoprolol | | | as | | | above | | | | | | -- | | | anticoagula | | | tion: | | | holding | | | warfarin | | | for now | | | given DAPT | | | and h/o | | | GIB. | | | Discuss | | | further | | | with | | | outpatient | | | cardiologis | | | t. May | | | consider | | | holding | | | anticoagula | | | tion unless | | | he | | | demonstrate | | | s recurrent | | | | | | arrhythmia | | | # | | | Influenza | | | type A - | | | resolved # | | | Community | | | acquired | | | pneumonia # | | | Severe | | | sepsis with | | | shock, | | | resolved Pt | | | presented | | | to [facility] | | | [facility] | | | found to be | | | Flu | | | A positive | | | with | | | severe | | | sepsis and | | | respiratory | | | failure. | | | Pt was | | | intubated, | | | started on | | | oseltamivir | | | and | | | azithromyci | | | n, | | | ceftriaxone | | | . He | | | completed 6 | | | days of | | | oseltamivir | | | and 10 | | | days of | | | antibiotics | | | as of 2/5. | | | Cough has | | | resolved. | | | CXR 2/4 | | | showed | | | lingering | | | GGO which | | | is to be | | | expected. | | | # | | | Suspected | | | UGIB s/p 2 | | | clipsPt | | | developed | | | hgb drop | | | from 16 to | | | 12 in | | | setting of | | | sepsis | | | management | | | , fluid | | | resuscitati | | | on. EGD at | | | [facility] | | | on 10/05 | | | showed | | | gastritis, | | | duodenitis, | | | linear | | | ulcerations | | | without | | | active | | | bleeding | | | s/p | | | clipping x | | | 2. He has | | | thus far | | | tolerated | | | DAPT and | | | heparin | | | infusion | | | without | | | signs of | | | bleeding | | | | | | | | | --sachi | | | nue | | | protonix 40 | | | mg | | | BID | | | | | | --fo | | | llow up | | | with GI as | | | outpatient | | | # Pre | | | [id number] | | | 5.6 on | | | this | | | admission. | | | On | | | metformin | | | 500 mg BID | | | at home. | | | Holding | | | during this | | | admission. | | | Specific | | | issues to | | | be | | | addressed | | | at first | | | post-hospit | | | alization | | | visit: 1. | | | Wound check | | | from ENROBER-D | | | | | | placement2. | | | Consider | | | restarting | | | lisinopril | | | if BPs | | | improve and | | | Cr is | | | stable3. | | | Instructed | | | pt to | | | restart | | | metformin | | | on 08/18 | | | but | | | reevaluate | | | based on | | | CrSchedule | | | the | | | following | | | appointment | | | (s) when | | | you get | | | home | | | [facility]a | | | [place], | | | ACNP. Go | | | on | | | 10/19/2017. | | | Why: at | | | 1:15pm for | | | heart | | | failure | | | follow up, | | | to re-check | | | labwork, | | | and to have | | | your wound | | | | | | checkedCont | | | act | | | information | | | HEART | | | CLINICS | | | [id number] | | | [address] | | [address] | | | [place] | | | [phone] | | [phone] | | | Hansa | | | [place], | | | ACNP. Go | | | on | | | 11/11/2017. | | | Why: at | | | 9:30am for | | | cardiology | | | follow up | | | and to have | | | your | | | device | | | checkedCont | | | act | | | information | | | HEART | | | CLINICS | | | [id number] | | | [address] | | | [address] | | | [place] | | | [phone] | | | [phone] | | | Medication | | | List START | | | taking | | | these | | | medications | | | Childrens | | | Aspirin 81 | | | mg | | | ChewGeneric | | | drug: | | | aspirin | | | chewableChe | | | w and | | | swallow 1 | | | tablet once | | | daily. | | | Indications | | | : | | | myocardial | | | infarction | | | preventionS | | | tart taking | | | on: | | | 10/18/2017Re | | | places: | | | Aspirin 81 | | | mg Tab | | | gabapentin | | | 300 mg | | | CapCommonly | | | known as: | | | | | | NEURONTINTa | | | ke 1 | | | capsule by | | | mouth three | | | times | | | daily. | | | Indications | | | : | | | Postoperati | | | ve Acute | | | Pain | | | nitroglycer | | | in 0.4 mg | | | SublCommonl | | | y known as: | | | | | | NITROSTATPl | | | avi 1 | | | tablet | | | under | | | tongue and | | | allow to | | | dissolve | | | every 5 | | | minutes as | | | needed for | | | chest pain. | | | Max of | | | 3 doses in | | | 15 minutes. | | | | | | pantoprazol | | | e 40 mg | | | TbecCommonl | | | y known as: | | | | | | PROTONIXTak | | | e 1 tablet | | | by mouth | | | two times | | | daily. | | | CHANGE how | | | you take | | | these | | | medications | | | | | | atorvastati | | | n 80 mg | | | TabCommonly | | | known as: | | | | | | LIPITORTake | | | 1 tablet | | | by mouth | | | once daily. | | | | | | Indications | | | : | | | myocardial | | | infarction | | | preventionS | | | tart taking | | | on: | | | 10/18/2017Wh | | | at | | | changed: | | | medication | | | strength | | | how much to | | | take MAPAP | | | EXTRA | | | STRENGTH | | | 500 mg | | | TabGeneric | | | drug: | | | acetaminoph | | | enTake 2 | | | tablets by | | | mouth every | | | six hours | | | as needed. | | | Indications | | | : PainWhat | | | changed: | | | when to | | | take this | | | reasons to | | | take this | | | CONTINUE | | | taking | | | these | | | medications | | | | | | artificial | | | tears | | | (dextran | | | 70-hypromel | | | lose) | | | 0.1-0.3 % | | | DropCommonl | | | y known as: | | | NATURE'S | | | TEARSInstil | | | l 1 drop | | | into both | | | eyes as | | | needed (Dry | | | Eyes). | | | Indications | | | : Dry Eye | | | cholecalcif | | | talia | | | (Vitamin | | | D3) 1,000 | | | unit | | | TabCommonly | | | known as: | | | VITAMIN | | | D3Take 1 | | | tablet by | | | mouth once | | | daily. | | | Indications | | | : Vitamin D | | | Deficiency | | | | | | clopidogrel | | | 75 mg | | | TabCommonly | | | known as: | | | PLAVIXTake | | | 1 tablet | | | by mouth | | | once daily. | | | | | | Indications | | | : | | | myocardial | | | infarction | | | preventionS | | | tart taking | | | on: | | | 10/18/2017 | | | ergocalcife | | | rol 50,000 | | | unit | | | CapCommonly | | | known as: | | | VITAMIN | | | D2, DRISDOL | | | melatonin | | | 3 mg | | | TabTake 1 | | | tablet by | | | mouth once | | | daily in | | | the | | | evening. | | | Indications | | | : Delirium | | | metFORMIN | | | 500 mg | | | TabCommonly | | | known as: | | | | | | GLUCOPHAGET | | | aman 1 | | | tablet by | | | mouth two | | | times | | | daily. | | | Resume on | | | 10/19. | | | Indications | | | : type 2 | | | diabetes | | | mellitus | | | metoprolol | | | succinate | | | 25 mg | | | [id number] | | | y known as: | | | | | | TOPROL-XLTa | | | ke 1 tablet | | | by mouth | | | once daily. | | | | | | Indications | | | : | | | Myocardial | | | Reinfarctio | | | n | | | Prevention | | | oxyCODONE | | | (immediate | | | release) 5 | | | mg | | | TabCommonly | | | known as: | | | | | | ROXICODONET | | | aman 1-2 | | | tablets by | | | mouth every | | | four hours | | | as needed | | | for severe | | | pain. | | | Indications | | | : Pain | | | polyethylen | | | e glycol 17 | | | gram | | | PwpkCommonl | | | y known as: | | | | | | MIRALAXMix | | | 1 packet | | | and take | | | orally | | | twice daily | | | as needed | | | (constipati | | | on). | | | Indications | | | : | | | constipatio | | | n | | | senna-docus | | | ate 8.6-50 | | | mg | | | TabCommonly | | | known as: | | | SENOKOT | | | STake 1 | | | tablet by | | | mouth two | | | times | | | daily. Hold | | | for loose | | | stools | | | Indications | | | : | | | constipatio | | | n STOP | | | taking | | | these | | | medications | | | Aspirin | | | 81 mg | | | TabCommonly | | | known as: | | | LOW-DOSE | | | ASPIRINRepl | | | aced by: | | | Childrens | | | Aspirin 81 | | | mg Chew | | | carvedilol | | | 3.125 mg | | | TabCommonly | | | known as: | | | COREG | | | isosorbide | | | mononitrate | | | CR 30 mg | | | [id number] | | | y known as: | | | IMDUR | | | lisinopril | | | 5 mg | | | TabCommonly | | | known as: | | | PRINIVIL | | | ranitidine | | | 300 mg | | | TabCommonly | | | known as: | | | ZANTAC | | | traMADol 50 | | | mg | | | TabCommonly | | | known as: | | | ULTRAM | | | warfarin 5 | | | mg | | | TabCommonly | | | known as: | | | COUMADIN | | | Diet Low | | | Sodium, Low | | | | | | Cholesterol | | | Sodium 2 | | | gm, Low | | | Cholesterol | | | - Choose | | | foods that | | | are low in | | | cholesterol | | | , saturated | | | fat, total | | | fat and | | | have low to | | | moderate | | | sodium | | | levels. | | | Activity | | | Post-Femora | | | l You have | | | had a | | | cardiac | | | catheteriza | | | tion, which | | | includes a | | | puncture | | | to the | | | femoral | | | artery (in | | | your groin | | | area). You | | | need to | | | watch this | | | area | | | closely for | | | increasing | | | pain or | | | signs of | | | bleeding. | | | Activity | | | and other | | | instruction | | | s:For the | | | first 24 | | | hours:1. | | | NO | | | DRIVING2. | | | No | | | climbing, | | | cycling, or | | | similar | | | activity | | | involving | | | the lower | | | extremities | | | 3. Driving | | | and heavy | | | lifting and | | | pushing or | | | pulling is | | | not | | | allowed for | | | a few | | | days.4. | | | You may | | | shower on | | | the day | | | following | | | your | | | procedure. | | | Do not take | | | a tub bath | | | or | | | submerge | | | the | | | puncture | | | site in | | | water for 7 | | | days | | | following | | | the | | | procedure.F | | | or the | | | first | | | week:1. No | | | lifting | | | more than | | | 5-10 pounds | | | for one | | | week2. No | | | swimming, | | | bathing, or | | | submersion | | | in water | | | for one to | | | two | | | weeks.3. | | | Increase | | | activity as | | | tolerated | | | Discharge | | | Labs: | | | Complete | | | Blood Count | | | Lab | | | Results | | | Component | | | Value Date | | | WBC 8.59 | | | 10/17/2017 | | | HB 11.6 | | | 10/17/2017 | | | HCT 35.2 | | | 10/17/2017 | | | PLT 226 | | | 10/17/2017 | | | MCV 91.7 | | | 10/17/2017 | | | RDW 47.0 | | | 10/17/2017 | | | Basic | | | Metabolic | | | Panel Lab | | | Results | | | Component | | | Value Date | | | NA 137 | | | 10/17/2017 | | | K 4.5 | | | 10/17/2017 | | | CL 104 | | | 10/17/2017 | | | BICARB 26 | | | 10/17/2017 | | | BUN 16 | | | 10/17/2017 | | | CR 1.40 | | | 10/17/2017 | | | GLU 113 | | | 10/17/2017 | | | CA 8.4 | | | 10/17/2017 | | | Lipid | | | Panel Lab | | | Results | | | Component | | | Value Date | | | CHOL 89 | | | 10/10/2017 | | | LDL 42 | | | 10/10/2017 | | | HDL 21 | | | 10/10/2017 | | | TRI 131 | | | 10/10/2017 | | | Pertinent | | | | | | Images/stud | | | ies ALVARES | | | RY | | | ANGIOGRAPHY | | | | | | 10/15/17:Limi | | | macho | | | coronary | | | angiography | | | | | | demonstrate | | | d severe | | | ostial | | | in-stent | | | restenosis | | | of the left | | | circumflex | | | coronary | | | stent and | | | severe | | | in-stent | | | restenosis | | | of the | | | distal left | | | main | | | extending | | | into the | | | left | | | anterior | | | descending | | | coronary | | | artery. | | | These | | | findings | | | are | | | essentially | | | unchanged | | | from the | | | patient's | | | recent | | | coronary | | | angiogram. | | | PERCUTANEO | | | US CORONARY | | | | | | INTERVENTIO | | | N:Lesion | | | #1:1. | | | | | | Ostial | | | left | | | circumflex | | | coronary | | | artery | | | in-stent | | | restenosis. | | | 2. | | | Le | | | neema type: | | | C.3. | | | | | | Lesion | | | length: | | | 16 | | | mm.4. | | | | | | Preinterve | | | ntion ANNA | | | flow: | | | 3.5. | | | | | | Postinter | | | vention | | | ANNA flow: | | | 3.6. | | | | | | Preinterv | | | ention | | | stenosis: | | | 95%.7. | | | | | | Postint | | | ervention | | | stenosis: | | | 0%.8. | | | | | | Stent: | | | 3.0 x 18 | | | mm Resolute | | | Christiana | | | drug-elutin | | | g stent. | | | Lesion | | | #2:1. | | | | | | Lesion | | | location: | | | Distal | | | left main | | | coronary | | | artery | | | extending | | | into the | | | left | | | anterior | | | descending | | | coronary | | | artery.2. | | | | | | Lesion | | | type: | | | C.3. | | | | | | Lesion | | | length: | | | 10 | | | mm.4. | | | | | | Preinterve | | | ntion ANNA | | | flow: | | | 3.5. | | | | | | Postinter | | | vention | | | ANNA flow: | | | 3.6. | | | | | | Preinterv | | | ention | | | stenosis: | | | 80%.7. | | | | | | Postint | | | ervention | | | stenosis: | | | 0%.8. | | | | | | PTCA: | | | Final | | | kissing | | | balloon | | | inflation | | | with a 3.5 | | | mm | | | noncomplian | | | t balloon | | | and a 2.5 | | | mm | | | compliant | | | balloon. I | | | MPRESSION:S | | | uccessful | | | percutaneou | | | s coronary | | | interventio | | | n to the | | | ostial left | | | | | | circumflex. | | | One 3.0 | | | x 18 mm | | | Resolute | | | Alvaro | | | drug-elutin | | | g stent. | | | Successfu | | | l | | | percutaneou | | | s coronary | | | translumina | | | l | | | angioplasty | | | of the | | | distal left | | | main | | | extending | | | into the | | | left | | | anterior | | | descending | | | coronary | | | artery with | | | final | | | kissing | | | balloon | | | inflation | | | with a 3.5 | | | mm | | | noncomplian | | | t and a 2.5 | | | mm | | | compliant | | | balloon. N | | | M | | | Myocardial | | | perfusion | | | study | | | 10/13/17:Exte | | | nsive | | | severe | | | perfusional | | | defect | | | involving | | | approximate | | | ly 40% of | | | the left | | | ventricular | | | myocardium | | | with | | | severe wall | | | motion | | | abnormality | | | and | | | ejection | | | fraction of | | | 24%. This | | | study is | | | categorized | | | as high | | | risk. PET | | | scan | | | cardiac | | | 10/13/17: FDG | | | cardiac | | | PET | | | demonstrate | | | s severely | | | decreased | | | to absent | | | tracer | | | uptake | | | along the | | | anterior | | | mid to | | | distal | | | wall, mid | | | to distal | | | interventri | | | cular | | | septum, and | | | apex. | | | Tracer | | | uptake is | | | seen within | | | the rest | | | of the left | | | | | | ventricle.R | | | eview of | | | the | | | separate | | | myocardial | | | rest | | | perfusion | | | Tc-Sestamib | | | i | | | demonstrate | | | s extensive | | | severe | | | perfusional | | | defect | | | involving | | | the same | | | areas as | | | described | | | above.The | | | non | | | contrast CT | | | for | | | attenuation | | | and | | | localizatio | | | n was also | | | reviewed. | | | No | | | suspicious | | | pulmonary | | | nodules are | | | | | | identified. | | | Small | | | bilateral | | | pleural | | | effusions | | | are | | | present. No | | | suspicious | | | osseous | | | lesions are | | | | | | identifiedI | | | MPRESSION:N | | | o tracer | | | uptake | | | within the | | | mid to | | | distal | | | anterior | | | wall/interv | | | entricular | | | septum and | | | apex | | | correspondi | | | ng to same | | | non-perfuse | | | d areas | | | seen on | | | myocardial | | | rest | | | perfusion | | | Tc-Sestamib | | | i, | | | compatible | | | with | | | nonviable | | | myocardiumT | | | TE 18: | | | 1. The left | | | | | | ventricular | | | cavity | | | size is | | | normal. | | | | | | | | | | | | | | | 2. The LV | | | function | | | is severely | | | abnormal. | | | | | | | | | | | | | | | | | | 3. Left | | | ventricular | | | systolic | | | thickening | | | is | | | segmentally | | | abnormal | | | (see | | | | | | comments | | | below). | | | | | | | | | | | | | | | | | | | | | | | | | | | 4. | | | Visually | | | estimated | | | left | | | ventricular | | | ejection | | | fraction is | | | 30 - 35%. | | | | | | 5. RV | | | cavity size | | | is normal. | | | RV global | | | systolic | | | function is | | | mildly | | | reduced. | | | 6. There | | | is mild | | | dilatation | | | of the | | | ascending | | | aorta. (See | | | comments | | | below). | | | | | | | | | | | | | | | | | | | | | | | | | | | | | | | | | 7. | | | Compared to | | | the most | | | recent exam | | | dated, | | | 03/30/2017, | | | the LVEF | | | is similar. | | | | | | Cariology | | | | | | Metrics:Mos | | | t recent LV | | | Ejection | | | Fraction: | | | 30%Core | | | measures:Ot | | | her | | | Discharge | | | Orders and | | | Instruction | | | s | | | Defibrillat | | | or Implant | | | Patient | | | Instruction | | | s These | | | instruction | | | s are | | | pertinent | | | to your | | | implantable | | | | | | cardioverte | | | r | | | defibrillat | | | or (ICD) | | | new | | | implant, | | | ICD upgrade | | | or | | | revision | | | with new | | | lead(s). | | | Driving: | | | No | | | driving for | | | the first | | | 24 hours | | | following | | | the | | | procedure | | | as you may | | | be under | | | the | | | influence | | | of sedative | | | | | | medications | | | . You | | | should not | | | drive if | | | you are | | | taking pain | | | | | | medications | | | around the | | | clock. | | | For the | | | first week, | | | you should | | | avoid | | | driving if | | | possible as | | | over | | | aggressive | | | arm motion | | | may cause | | | dislodgemen | | | t of the | | | newly | | | implanted | | | ICD leads. | | | You | | | should not | | | drive any | | | time if you | | | feel weak, | | | dizzy, | | | lightheaded | | | , drowsy, | | | or unsteady | | | from any | | | causes. | | | Patients | | | who have | | | had | | | recurrent | | | syncopal | | | events | | | (fainting, | | | passing | | | out, or | | | loss of | | | consciousne | | | ss) or had | | | a cardiac | | | arrest, for | | | which you | | | received an | | | ICD, | | | should not | | | drive for 6 | | | months. | | | You should | | | be cleared | | | by your | | | cardiologis | | | t prior to | | | returning | | | to driving. | | | If | | | you have | | | driving | | | restriction | | | s from any | | | other | | | medical | | | conditions | | | or reasons, | | | please | | | follow | | | those | | | restriction | | | s. Wound | | | Care: | | | Watch your | | | defibrillat | | | or | | | procedure | | | site for | | | signs of | | | infection | | | or | | | bleeding. | | | Report any | | | redness, | | | swelling, | | | bleeding, | | | hematoma | | | (bleeding | | | inside the | | | pocket), or | | | drainage | | | from the | | | site. | | | Report any | | | unexplained | | | fever with | | | | | | temperature | | | s over | | | 100.5 | | | degrees in | | | the first | | | two weeks | | | following | | | the | | | procedure. | | | The | | | incision | | | will be | | | closed with | | | absorbable | | | stitches | | | under the | | | skin and | | | covered | | | with | | | steri-strip | | | s. Do not | | | pull these | | | steri-strip | | | s off. | | | Usually, | | | they will | | | fall off | | | gradually | | | after a few | | | weeks. If | | | they do | | | not, you | | | may remove | | | them after | | | 3 weeks. | | | A | | | pressure-dr | | | essing | | | (thick | | | layered | | | dressing | | | with | | | all-around | | | tape) will | | | be placed | | | above the | | | steri-strip | | | s over the | | | incision at | | | the end of | | | procedure. | | | This will | | | be removed | | | next | | | morning and | | | replaced | | | with | | | regular | | | gauze by | | | our staff. | | | You may | | | take this | | | dressing | | | off the day | | | after you | | | get home. | | | No | | | direct | | | water on | | | the | | | incision | | | site for at | | | least five | | | days - | | | that means | | | no shower, | | | tub bath, | | | or | | | swimming. | | | You can | | | take a | | | sponge bath | | | but keep | | | the | | | procedure | | | site | | | completely | | | dry. | | | Do not | | | immerse the | | | wound in a | | | bath tub, | | | pool or hot | | | tub for | | | one month, | | | to reduce | | | the risk of | | | | | | infection. | | | Follow-ups | | | after the | | | procedure: | | | You will | | | need a | | | wound check | | | | | | appointment | | | in about | | | one week | | | and ICD | | | check in | | | 4-6 weeks | | | following | | | the implant | | | procedure. | | | If | | | you prefer | | | to have | | | your | | | primary | | | care doctor | | | check the | | | wound for | | | you, please | | | call | | | his/her | | | office to | | | make an | | | appointment | | | . If you | | | choose to | | | be followed | | | with us, | | | our office | | | will | | | contact you | | | to | | | schedule an | | | | | | appointment | | | . The | | | ICD needs | | | to be | | | checked at | | | a | | | cardiology | | | office or | | | device | | | clinic. If | | | you choose | | | to be | | | followed | | | with us, | | | our office | | | will | | | contact you | | | to | | | schedule an | | | | | | appointment | | | . If you | | | prefer to | | | be followed | | | locally, | | | we will | | | assist you | | | to find a | | | cardiology/ | | | device | | | clinic near | | | your | | | home. | | | After the | | | first ICD | | | check | | | appointment | | | , you will | | | need to | | | have your | | | ICD checked | | | regularly | | | at the | | | device | | | clinic | | | every 3 | | | months or | | | as directed | | | by the | | | device | | | clinic. | | | In most | | | situations, | | | the device | | | company | | | will send | | | you a | | | remote | | | monitor. | | | Please read | | | the | | | instruction | | | s regarding | | | how to set | | | this up, | | | and discuss | | | with the | | | device | | | clinic | | | staff at | | | your wound | | | check | | | appointment | | | or 4-6 ICD | | | check | | | appointment | | | . Arm | | | Activities | | | and | | | Restriction | | | s: For | | | the first | | | 4-6 weeks, | | | restrict | | | the | | | procedure | | | side arm | | | activity to | | | gentle arm | | | motion | | | only as the | | | new ICD | | | leads will | | | take about | | | 4-6 weeks | | | to mature | | | at the | | | implant | | | site in | | | your heart. | | | Do not | | | lift | | | anything | | | heavier | | | than 10 | | | pounds, | | | push or | | | pull heavy | | | objects, | | | reach above | | | your | | | shoulder or | | | behind | | | your back, | | | and avoid | | | over-aggres | | | sive arm | | | motions | | | (i.e. | | | tennis, | | | painting, | | | lawn | | | mowing) | | | with your | | | procedure | | | side | | | arm. | | | You may use | | | your | | | non-procedu | | | re side arm | | | regularly | | | without | | | restriction | | | s. We | | | recommend | | | regular | | | exercise as | | | you are | | | able to, | | | such as | | | walking, or | | | stationary | | | biking. If | | | you don't | | | know how to | | | begin a | | | regular | | | activity | | | program, | | | please ask | | | your doctor | | | for | | | advice. Ar | | | m | | | Sling: | | | If you are | | | given an | | | arm sling | | | at the | | | hospital | | | after your | | | procedure, | | | only use it | | | for the | | | first | | | couple of | | | days | | | following | | | the | | | procedure | | | for your | | | comfort. | | | You | | | should take | | | your arm | | | out every | | | couple of | | | hours and | | | move your | | | hand/elbow | | | to allow | | | good | | | circulation | | | while you | | | are using | | | the arm | | | sling. | | | You should | | | not hold | | | your arm | | | still in | | | the sling | | | for a | | | prolonged | | | period of | | | time, as it | | | may cause | | | swelling, | | | soreness, | | | or | | | stiffness | | | in your arm | | | and | | | joints. Di | | | et: Your | | | diet should | | | not have | | | to be | | | changed as | | | a result of | | | your | | | defibrillat | | | or implant | | | procedure. | | | You | | | may be | | | given diet | | | recommendat | | | ions based | | | on your | | | other | | | health | | | conditions. | | | Electrica | | | l and | | | magnet | | | interferenc | | | e: | | | Defibrillat | | | ors are | | | protected | | | from | | | electrical | | | interferenc | | | e from | | | regular | | | house | | | electronic | | | devices or | | | appliance. | | | It is safe | | | to use and | | | to be | | | around a | | | microwave | | | oven, | | | computer, | | | TV or other | | | regular | | | house | | | electronic | | | devices or | | | appliances. | | | You | | | should | | | avoid using | | | any power | | | tools | | | especially | | | with your | | | procedure | | | side hand. | | | If you have | | | questions | | | about | | | specific | | | electrical | | | devices or | | | power tools | | | you may be | | | around, | | | please call | | | the | | | company's | | | patient | | | line using | | | the phone # | | | on your | | | card or | | | handbook. | | | Your | | | defibrillat | | | or function | | | may be | | | affected by | | | strong | | | magnets so | | | you should | | | avoid being | | | around | | | strong | | | magnetic | | | [place] for | | | prolonged | | | periods of | | | time. The | | | defibrillat | | | or will | | | return to | | | normal | | | function as | | | soon as | | | you leave | | | the | | | magnetic | | | field. | | | Cell | | | Phone | | | Use: It | | | is OK to | | | use a cell | | | phone on | | | the | | | opposite | | | side of | | | your | | | defibrillat | | | or (use | | | non-procedu | | | re side | | | hand to | | | hold the | | | cell phone | | | to | | | non-procedu | | | re side | | | ear). | | | Do not | | | carry a | | | cell phone | | | in the | | | pocket that | | | is over | | | your | | | defibrillat | | | or or near | | | your | | | defibrillat | | | or. | | | Travel | | | and | | | Shopping: | | | Your | | | device may | | | trigger | | | airport | | | security | | | detection | | | devices. | | | Please | | | carry your | | | defibrillat | | | or card | | | with you | | | and show | | | the | | | attendant | | | your card. | | | Ask for | | | hand search | | | and do not | | | use | | | hand-held | | | wand search | | | over your | | | device. It | | | is safe to | | | go through | | | the full | | | body | | | scanner at | | | the | | | airport, | | | but only | | | after 6 | | | weeks post | | | defibrillat | | | or implant | | | as this | | | requires | | | you to put | | | your hands | | | above your | | | head. | | | Some | | | department | | | stores and | | | grocery | | | stores have | | | anti-theft | | | doors. | | | Please do | | | not lean | | | against | | | these | | | anti-theft | | | doors. Walk | | | through | | | them at | | | normal | | | pace. | | | Wallet | | | Defibrillat | | | or Card: | | | You will be | | | given a | | | handbook in | | | the | | | hospital | | | after the | | | implant | | | procedure | | | which | | | contains | | | important | | | information | | | about your | | | device and | | | has | | | answers to | | | most common | | | questions. | | | Please | | | read it | | | thoroughly | | | and be sure | | | to have | | | your | | | questions | | | answered | | | before | | | leaving the | | | hospital. | | | You | | | will | | | receive a | | | wallet ID | | | card in the | | | mail from | | | the device | | | company in | | | about 2-3 | | | weeks. | | | Please | | | always | | | carry the | | | card with | | | you when | | | you go to | | | doctor's | | | appointment | | | s, the | | | emergency | | | room, or | | | hospital so | | | other | | | health care | | | providers | | | will know | | | what type | | | of | | | defibrillat | | | or you | | | have. | | | You can | | | find the | | | company's | | | patient | | | line phone | | | number in | | | the | | | handbook as | | | well as on | | | your card. | | | You can | | | contact the | | | company if | | | you have | | | any | | | technical | | | questions | | | regarding | | | your | | | device. | | | How to | | | Contact | | | us:Phone: | | | [phone] | | | [phone] | | | Cardiology | | | Division | | | Office | | | | | | [phone] | | | 0 | | | Cardiology | | | Patient | | | Phone | | | Line | | | Lauro | | | [facility] | | | . Sophie | | | SteckerDr. | | | Clayton | | | DewlandDr. | | | Yusef | | | NazerAngela | | | Krebsbach, | | | PA-CAnnie | | | Mastrandrea | | | , | | | PA-CConnie | | | Diaz, | | | NPKaren | | | Naomi, | | | RNMargaret | | | Kleist, | | | RN Evening | | | s or | | | weekends: | | | [phone] | | | [phone] | | | for | | | on-call | | | cardiologis | | | tDrug | | | Eluting | | | Stent 1. | | | Please take | | | Plavix | | | (clopidogre | | | l) everyday | | | which | | | helps to | | | keep the | | | stent open. | | | You need | | | to take it | | | every day | | | for one | | | year and do | | | not stop | | | unless you | | | are told to | | | by your | | | cardiologis | | | t. 2. Take | | | an aspirin | | | 81 mg once | | | daily | | | indefinitel | | | y.3. You | | | were | | | referred | | | for cardiac | | | rehab and | | | should | | | start now | | | that you | | | have had a | | | stent | | | placed.4. | | | Follow up | | | with your | | | cardiologis | | | t within | | | 2-4 | | | weeks.5. No | | | elective | | | surgeries | | | for one | | | year.6. | | | There is | | | still a | | | small risk | | | that the | | | stent can | | | block off | | | within the | | | year. If | | | you have | | | severe | | | chest pain, | | | call | | | 911.Cardiac | | | | | | Rehabilitat | | | ion:This | | | patient is | | | referred | | | for cardiac | | | | | | rehabilitat | | | ion. | | | Patient is | | | currently | | | limited in | | | the ability | | | to perform | | | | | | age-related | | | activities | | | of daily | | | living | | | and/or | | | impaired | | | functional | | | abilities | | | and would | | | benefit | | | from | | | outpatient | | | cardiac | | | rehabilitat | | | ion. | | | Patient has | | | a | | | documented | | | diagnosis | | | of: | | | PCI/Stent. | | | Date of | | | Event/Proce | | | dure/Diagno | | | sis: | | | 10/12/17NYHA | | | Classificat | | | ion: | | | IITobacco | | | Use: Yes, | | | active | | | smoker. Pa | | | tient | | | counseled | | | on | | | importance | | | of smoking | | | cessation | | | during | | | hospitaliza | | | tionLast | | | vitals: | | | BP: 101/65 | | | | | | (10/17/17 | | | 1144) | | | Pulse: 80 | | | | | | (10/17/17 | | | 1144) | | | Resp: 18 | | | | | | (10/17/17 | | | 1144) | | | Weight: | | | 88.4 kg | | | (194 lb | | | 14.2 oz) | | | | | | (10/17/17 | | | 0221) | | | Discharging | | | Provider: | | | GLENN A | | | CHANDU, | | | PA-C, | | | Cardiovascu | | | lar | | | MedicineAtt | | | ending | | | Physician: | | | Khurram B | | | Heitner, | | | MD, | | | Cardiovascu | | | lar | | | [facility] | | | sha A | | | Chandu, | | | PA-CInstruc | | | tor of | | | Cardiovascu | | | lar | | | [facility] | | | ght | | | Cardiovascu | | | lar | | | [place] | | | [place] | | | [facility] | | | [facility] | | | [facility] | | | spent 36 | | | minutes in | | | coordinatio | | | n of care | | | and | | | face-to-fac | | | e with the | | | patient | | | and/or | | | their | | | surrogate | | | in which | | | the | | | problems | | | above were | | | discussed | +---+ + from Last 3 Months Family History + + +------+ + | [...] + + + | Blood Pressure | 101/65 | 10/17/2017 11:44 AM PST | + + + + | Pulse | 80 | 10/17/2017 11:44 AM PST | + + + + | Temperature | 36.5 C (97.7 F) | 10/17/2017 11:44 AM PST | + + + + | Respiratory Rate | 18 | 10/17/2017 11:44 AM PST | + + + + | Oxygen Saturation | 96% | 10/17/2017 11:44 AM PST | + + + + | Inhaled Oxygen | - | - | | Concentration | | | + + + + | Weight | 88.4 kg (194 lb 14.2 | 10/17/2017 2:21 AM PST | | | oz) | | + + + + | Height | 175.3 cm (5' 9") | 10/12/2017 8:11 AM PST | + + + + | Body Mass Index | 28.78 | 10/17/2017 2:21 AM PST | + + + + Plan of Treatment + + + + + | Health Maintenance | Due Date | Last Done | Comments | + + + + + | INFLUENZA VACCINE | | | | | (FLU SHOT) | 7 | | | + + + + + Implants + +------+--------+ +--------+--------+--------+ | Implanted | Type | Area | Manufacture | Device | Expira | Model | | | | | r | | tion | / | | | | | | Identi | Date | Serial | | | | | | fier | | / Lot | + +------+--------+ +--------+--------+--------+ | Icd-10/16/2017Implanted: Qty: 1 | ICD | Left: | MEDTRONIC | | 03/20/ | [id number] | | on 10/16/2017 by Wilner, | | Chest | INC | | 2018 | Q | | Sophie Soni MD | | | | | | /[id number] | | | | | | | | [id number] | | | | | | | | / | + +------+--------+ +--------+--------+--------+ | Rv-Lead-10/16/2017Implanted: | LEAD | Left: | MEDTRONIC | | 07/15/ | [id number] | | Qty: 1 on 10/16/2017 by | | Chest | INC | | 2018 | /[id number] | | Sophie Darby MD | | | | | | [id number] | | | | | | | | / | + +------+--------+ +--------+--------+--------+ | Ra-Lead-10/16/2017Implanted: | LEAD | Left: | MEDTRONIC | | 07/14/ | [id number] | | Qty: 1 on 10/16/2017 by | | Chest | INC | | 2018 | 2CM | | Sophie Darby MD | | | | | | /[id number] | | | | | | | | [id number] | | | | | | | | / | + +------+--------+ +--------+--------+--------+ | Cs/Lv-Lead-10/16/2017Implanted: | LEAD | Left: | MEDTRONIC | | 07/13/ | [id number] | | Qty: 1 on 10/16/2017 by | | Chest | INC | | 2018 | /[id number] | | Sophie Darby MD | | | | | | [id number] | | | | | | | | / | + +------+--------+ +--------+--------+--------+ | Stent-10/15/2017Implanted: Qty: | | | MEDTRONIC | | | [id number] | | 1 on 10/15/2017 by Ly, | | | HANDY | | | [id number] | | Tejal Pettit MD | | | | | | X / | | | | | | | | /[id number] | | | | | | | | [id number] | + +------+--------+ +--------+--------+--------+ Results CAPILLARY BLOOD GLUCOSE (NO CHG), POC (10/17/2017 1:18 PM)Only the most recent of 24 resul ts within the time period is included. + +---------+ + | Component | Value | Ref Range | + +---------+ + | BLOOD GLUCOSE, POC | 113 (H) | 70 - 99 mg/dL | + +---------+ + + + + | Specimen | Performing Laboratory | + + + | | [facility] POINT [facility] CARE TESTS [address] | | | [place] [address] | + + + X-RAY CHEST 2 VIEW (10/17/2017 7:04 AM) + + + | Specimen | Performing Laboratory | + + + | | [facility] VOICE RECOGNITION | + + + + + | Narrative | + + | STUDY: CHEST 2 VIEWS HISTORY: Evaluated lead placement. COMPARISON: October | | 2017 FINDINGS: A left chest cardiac stimulator device is unchanged. 2 leads | | terminate overlying the right atrial appendage and right ventricular apex, and a third | | epicardial lead terminates overlying the left ventricular apex. The lungs are better | | expanded, with persistent minimal left basilar atelectasis and mild blunting of left | | costophrenic sulcus, likely reflecting a small effusion. There is no pneumothorax. | | The bones are unchanged. IMPRESSION: Unchanged cardiac stimulator device. | | I have personally reviewed the images and, if necessary, edited the report. I agree | | with the report as now presented. | + + + + | Procedure Note | + + | Service Account, [employer] In Interface - 10/17/2017 7:51 AM PST STUDY: CHEST 2 | | VIEWSHISTORY: Evaluated lead placement.COMPARISON: October 16, 2017FINDINGS: A left | | chest cardiac stimulator device is unchanged. 2 leads terminate overlying the right | | atrial appendage and right ventricular apex, and a third epicardial lead terminates | | overlying the left ventricular apex. The lungs are better expanded, with persistent | | minimal left basilar atelectasis and mild blunting of left costophrenic sulcus, likely | | reflecting a small effusion. There is no pneumothorax. The bones are | | unchanged.IMPRESSION: Unchanged cardiac stimulator device.I have personally reviewed the | | images and, if necessary, edited the report. I agree with the report as now presented. | |lungs are better expanded, with persistent minimal left basilar atelectasis and mild blunti ng of left costophrenic sulcus, likely reflecting a small effusion. There is no pneumothora x. The bones are unchanged. | | | |IMPRESSION: | | | |Unchanged cardiac stimulator device. | | | | | |I have personally reviewed the images and, if necessary, edited the report. I agree with t he report as now presented. | + + CBC (HEMOGRAM) ONLY (10/17/2017 4:11 AM)Only the most recent of 9 results within the time period is included. + + + + | Component | Value | Ref Range | + + + + | WHITE CELL COUNT | 8.59 | 3.50 - 10.80 K/cu mm | + + + + | RED CELL COUNT | 3.84 (L) | 4.50 - 6.00 M/cu mm | + + + + | HEMOGLOBIN | 11.6 (L) | 13.5 - 17.5 g/dL | + + + + | HEMATOCRIT | 35.2 (L) | 41.0 - 53.0 % | + + + + | MCV | 91.7 | 80.0 - 96.0 fL | + + + + | MCHC | 33.0 | 33.0 - 35.5 g/dL | + + + + | RDW SD | 47.0 (H) | 35.1 - 46.3 fL | + + + + | PLATELET COUNT | 226 | 150 - 400 K/cu mm | + + + + | MPV | 10.1 | 9.7 - 12.3 fL | + + + + | NRBC% | 0.0 | 0.0 - 0.3 % | + + + + | NRBC# | 0.00 | 0.00 - 0.02 K/cu mm | + + + + + + + | Specimen | Performing Laboratory | + + + | Blood | [facility] [place] [address] [place] [address] | | | [place] [address] | + + + BASIC METABOLIC SET (NA, K, CL, TCO2, BUN, CR, GLU, CA) (10/17/2017 4:11 AM)Only the most recent of 6 results within the time period is included. + + + + | Component | Value | Ref Range | + + + + | GLUCOSE, PLASMA | 103 (H) | 70 - 99 mg/dL | | (LAB) | | | + + + + | BUN, PLASMA (LAB) | 16 | 6 - 20 mg/dL | + + + + | CREATININE PLASMA | 1.40 (H) | 0.70 - 1.30 mg/dL | | (LAB) | | | + + + + | EGFR - | >60 | >60 mL/min | | [facility]IS | | | + + + + | EGFR NON | 51 (L) | >60 mL/min | | -[facility]IS | | | + + + + | SODIUM, PLASMA (LAB) | 137 | 136 - 145 mmol/L | + + + + | POTASSIUM, PLASMA | 4.5 | 3.4 - 5.0 mmol/L | | (LAB) | | | + + + + | CHLORIDE, PLASMA | 104 | 97 - 108 mmol/L | | (LAB) | | | + + + + | TOTAL CO2, PLASMA | 26 | 21 - 32 mmol/L | | (LAB) | | | + + + + | CALCIUM, PLASMA | 8.4 (L) | 8.6 - 10.2 mg/dL | | (LAB) | | | + + + + | ANION GAP | 7 | 4 - 11 mmol/L | + + + + | POTASSIUM CMNT | No Hemo | | + + + + + + + | Specimen | Performing Laboratory | + + + | Blood | [facility], [place] [address] [facility] | | | [place], [place] [address] | + + + + + | Narrative | + + | Adult glucose reference range change effective 7-17. GFR is estimated using the | | MDRD equation recommended by the National Kidney Disease Education Program. | | Estimated GFR Interpretive Information: <60 mL/min/1.73 sq | | m Chronic Kidney Disease <15 mL/min/1.73 sq | | m Kidney Failure Estimated GFR greater that 60 mL/min/1.73 | | sq m is of limited clinical value. The MDRD equation is not valid in the following | | situations: - Patients under 18 years of age - Severe malnutrition or obesity - | | Vegetarian diet - Rapidly changing kidney function | + + CBC ONLY (10/17/2017 4:11 AM)Only the most recent of 9 results within the time period is i ncluded. + + + | Specimen | Performing Laboratory | + + + | Blood | | + + + + + | Narrative | + + | The following orders were created for panel order CBC ONLY. | | Procedure | | Abnormality Status | | --------- | | ------ CBC (HEMOGRAM) | | ONLY[[id number]] Abnormal Final | | result Please view results for these tests on the | | individual orders. | + + CARDIOLOGY (10/17/2017)Only the most recent of 19 results within the time period is include d.X-RAY PORTABLE CHEST 1 VIEW (10/16/2017 6:20 PM)Only the most recent of 2 results within the time period is included. + + + | Specimen | Performing Laboratory | + + + | | [facility] VOICE RECOGNITION | + + + + + | Narrative | + + | STUDY: CT CHEST 1 VIEW HISTORY: Evaluated lead placement. COMPARISON: | | STUDY: CT CHEST 1 VIEW FINDINGS: A new left chest cardiac stimulator device is | | noted. 2 leads terminate overlying the right atrial appendage and right ventricular | | apex, and a third epicardial lead terminates overlying the right ventricular apex. The | | cardiomediastinal silhouette is stable. Decreased lung volumes with scattered | | atelectasis. No pulmonary edema, pleural effusion or pneumothorax. IMPRESSION: | | New cardiac stimulator device, with leads as described. No postprocedural pneumothorax. | | I have personally reviewed the images and, if necessary, edited the report. I | | agree with the report as now presented. | + + + + | Procedure Note | + + | Service Account, [employer] Interface - 10/17/2017 7:51 AM PST STUDY: CT CHEST 1 | | VIEWHISTORY: Evaluated lead placement.COMPARISON: STUDY: CT CHEST 1 VIEWFINDINGS: A | | new left chest cardiac stimulator device is noted. 2 leads terminate overlying the right | | atrial appendage and right ventricular apex, and a third epicardial lead terminates | | overlying the right ventricular apex. The cardiomediastinal silhouette is stable. | | Decreased lung volumes with scattered atelectasis. No pulmonary edema, pleural effusion | | or pneumothorax.IMPRESSION: New cardiac stimulator device, with leads as described. No | | postprocedural pneumothorax.I have personally reviewed the images and, if necessary, | | edited the report. I agree with the report as now presented. | | | |A new left chest cardiac stimulator device is noted. 2 leads terminate overlying the right atrial appendage and right ventricular apex, and a third epicardial lead terminates overlyin g the right ventricular apex. The | |cardiomediastinal silhouette is stable. Decreased lung volumes with scattered atelectasis. No pulmonary edema, pleural effusion or pneumothorax. | | | |IMPRESSION: | | | |New cardiac stimulator device, with leads as described. No postprocedural pneumothorax. | | | | | |I have personally reviewed the images and, if necessary, edited the report. I agree with t he report as now presented. | + + PROCEDURE NOTE (10/16/2017 5:30 PM)Only the most recent of 2 results within the time luke nolan is included. 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 Male | | recent NSTEMI, non-sustained VT (PVC triplet) and reduced EF<35% who underwent sudden | | cardiac arrest risk stratification using ventricular programmed electrical | | stimulation protocol. Sustained monomorphic VT was induced leading to this procedure. | | He is candidate for ENROBER-D since he as class 2 baseline heart failure and currently | | class 3 heart failure with LBBB 152 msec. PROCEDURE ATTENDING: Sophie Darby | | FELLOW: Amarilis Castle MD PROCEDURAL | | DATA: Procedure: New implant Implanted generator gravity prospecting supervisor: Medtronic | | Implanted leads gravity prospecting supervisor: Medtronic Radha-procedure Anticoag: None Presenting | | rhythm: NSR Existing device under advisory? No Pacemaker dependent: No | | Method of sedation: Conscious sedation - Anesth provider Response to | | sedation: Normal Fluoroscopy time (see log): 45-47 minutes | | MEDICATIONS: See anesthesia log and microbiology lab assistant log INTAKE AND OUTPUT: 1000 ml | | / 0 Fluoroscopy Time: 45.2 minutes Fluoroscopy DAP: 2192.0 cGy cm2 PROCEDURE | | NARRATIVE: Following oral and written informed consent, the patient was brought to | | the Electrophysiology Laboratory in the postabsorptive, nonsedated state. Cefazolin | | 2gm IV was administered preoperatively. The patient was prepped and draped in the | | usual sterile fashion. A finger oximeter and automatic blood pressure cuff were placed | | for continuous monitoring. Sedation was achieved by the anesthesiology | | service. Lidocaine 1% was used for local anesthesia. Under ultrasound | | guidance, the left axillary vein was cannulated percutaneously using a Micropuncture | | needle. A 0.018" wire was advanced into the vein and positioned below the diaphragm to | | confirm venous cannulation. This wire was exchanged for an 0.035" J wire. The | | procedure was repeated and a second and third J wire were advanced inferior to the | | diaphragm in a similar fashion. An incision was made medial and perpendicular to the | | deltopectoral groove. This was dissected down to the prepectoral fascia using | | electrocautery and all three wires were internalized into the pocket. A 9 Fr | | Safe sheath was inserted over the first wire and the wire and dilator were removed. | | Using fluoroscopy, a defibrillator lead was introduced into the 9 Fr sheath and | | advanced into the right ventricular outflow tract using a curved stylet. Using a | | straight stylet, the lead was withdrawn and its tip positioned in the right | | ventricular apex. The lead tip was stabilized and actively fixated in this | | position. Lead testing showed suitable parameters. There was no diaphragmatic | | stimulation at an output of 10 V. The 9 Fr sheath was pulled out and peeled | | away. The lead was anchored to the prepectoral fascia using interrupted silk-0 | | sutures. A 7 Fr Safe sheath was inserted over the second guidewire and the wire | | and dilator were removed. An atrial lead was then introduced into the 7-Fr sheath and | | using a J-tip stylet, its tip was positioned in the right atrial appendage. The lead | | was actively fixated in this position. Lead testing showed suitable parameters, | | with no right hemidiaphragmatic stimulation occurring at an output of 10 V. The 7 | | Fr sheath was pulled out and peeled away. The lead was anchored to the prepectoral | | fascia using interrupted silk-0 sutures. A 9 Fr Safe sheath was inserted over | | the third guidewire and the wire and dilator were removed. A 6-Fr deflectable EP | | mapping catheter was inserted into a cut-away, extended-hook coronary sinus sheath | | and this system was inserted into the 9-Fr sheath. The EP mapping catheter was used to | | guide the CS sheath into the CS and was then removed. A Wholey wire was advanced | | inside the a occlusion wedge catheter and then removed. CS venography using a | | balloon occluder and Visipaque contrast revealed a small CS branches and challenging | | anatomy. At this point, we converted to His bundle lead implantation. The 9 Fr Safe | | sheath was replaced with a 10 Fr safe sheath. A Medtronic rightsite His sheath was | | initially used but later replaced by a deflectable rightsite His sheath in which it | | was inserted into the 10 Fr sheath and advanced to the His bundle location. A His | | bundle lead then was advanced through the sheath into His and was fixated. After some | | time testing several His bundle pacing locations (with excellent His signal), we could | | not achieve pure His bundle pacing - QRS was similar duration to baseline. | | Therefore, we removed the His bundle lead and converted back to CS lead implantation. | | The 10 Fr sheath was removed, a new left axillary vein access under fluoroscopy | | guidance was performed, the left axillary vein was cannulated percutaneously using a | | Micropuncture needle. A 0.018" wire was advanced into the vein and positioned below | | the diaphragm to confirm venous cannulation. This wire was exchanged for Wholey | | guidewire. A 9 Fr Safe sheath was inserted over the guidewire and the wire and | | dilator were removed. A 6-Fr deflectable EP mapping catheter was inserted into a | | cut-away, extended-hook coronary sinus sheath that was replaced later by attained | | command sheath and this system was inserted into the 9-Fr sheath. CS venography using | | a Visipaque contrast revealed an appropriate posterolateral CS branch. A Whisper wire | | was advanced to this posterior lateral branch of the CS. A quadripolar CS lead was | | advanced over this guidewire until its tip was in the posterior lateral branch. | | After testing several pacing configurations for left ventricular capture, the LV1-2 | | bipolar configuration was selected. Using this configuration, pacing threshold was 0.5 | | V at 0.4 ms and no diaphragmatic stimulation was observed at an output of 10 V. | | Other lead parameters were within acceptable limits. The CS sheath was pulled out | | of the CS and cut away using a slitter while making sure the CS lead remained in the | | postero-lateral branch. The 9 Fr sheath was pulled out and peeled away. An | | anchoring sleeve was advanced over the CS lead and positioned just at the level of the | | prepectoral fascia, and the lead was anchored to the prepectoral fascia using | | interrupted silk-0 sutures. A subcutaneous pocket was created using blunt | | dissection, and hemostasis was achieved with electrocautery. The pocket was | | irrigated with copious amounts of Bacitracin solution. The leads were then connected | | to the header of a biventricular ICD generator and the leads and pulse generator were | | positioned inside the antibiotic pouch (Tyrx) and then positioned in the pocket. The | | pulse generator was anchored to the pectoral muscle with single 0-silk suture. After | | accounting for all sharps and sponges, the incision was closed in three layers, using | | Vicryl 2-0 for the deep and superficial layers and Vicryl 4-0 for the subcuticular | | layer. Bacitracin ointment, Steri-Strips, and a dressing were placed over the incision | | site. The patient tolerated the entire procedure well. DEVICE INFORMATION: | | BiV-ICD pulse generator: Casing Grader: Medtronic Model number: [id number] | | Serial number: [id number] RA lead: Casing Grader: Medtronic Model number: | | 5076-52 Serial number: [id number] RV lead: Casing Grader: Medtronic | | Model number: [id number] Serial number: [id number] CS lead: | | Casing Grader: Medtronic Model number: [id number] Serial number: [id number] | | MEASURED PARAMETERS: RA lead: P wave: 2.3 mV Threshold: 1.0 V at 0.4 ms | | Impedance: 456 ohms RV lead: R wave: 18.8 mV Threshold: 0.5 V | | at 0.4 ms Pacing Impedance: 456 ohms Defibrillation Impedance: 72 ohms CS | | lead: Pacing configuration: LV1>LV2 Threshold: 0.5 V at 0.4 ms | | Impedance: 836 ohms Bradycardia Parameters: Mode: DDD Lower rate | | limit: 50 Upper rate limit: 130 Output (A): 3.5 V at 0.4 ms Sensitivity | | (A): 0.3 mV Output (RV): 3.5 V at 0.4 ms Sensitivity (RV): 0.3 mV | | Output (CS): 2.0 V at 0.4ms Tachycardia Parameters: VT | | zone: 177-200 Therapies: Monitor VF zone: >200 bpm Therapies: 35 J x 6 | | ESTIMATED BLOOD LOSS: 15 mL COMPLICATIONS: None DISPOSITION: The patient | | was transferred to the Procedural Care Unit in good condition. IMPRESSION: | | Successful implantation of a biventricular implantable cardioverter defibrillator via | | a left axillary approach RECOMMENDATIONS: Portable CXR to evaluate for lead | | positions. Continue prophylactic IV antibiotics for 24 hours. PA and lateral CXR in | | AM to confirm lead position. Device interrogation in AM. Outpatient wound check in one | | week, device check in one month. Amarilis Castle MD Electrophysiology | | Fellow Division of Cardiovascular Medicine [facility] | | Pager [phone] Pursuant to Federal Medicare requirements, I certify that I, Sophie | | Wilner BREWER, was present for the entire procedure, performed all critical elements, and | | participated directly in the generation of this report. Sophie Darby MD | | Cardiovascular Medicine - Electrophysiology [facility] [place] [facility] | | | + + VBG-FULL ABL, POC (10/16/2017 3:55 PM) + + + + | Component | Value | Ref Range | + + + + | PH VENOUS, POC | 7.32 (L) | 7.35 - 7.45 | + + + + | PO2 VENOUS, POC | 35 | 30 - 55 mmHg | + + + + | PCO2 VENOUS, POC | 53 (H) | 35 - 50 mmHg | + + + + | TOTAL HEMOGLOBIN, | 11.7 (L) | 13.5 - 17.5 g/dL | | POC | | | + + + + | O2 SAT VENOUS, POC | 58.2 | % | + + + + | OXYHEMOGLOBIN, POC | 56.8 | % | + + + + | HEMATOCRIT, POC | 35.7 (L) | 41.0 - 53.0 % | + + + + | POTASSIUM, POC | 4.6 | 3.4 - 5.0 mmol/L | + + + + | SODIUM, POC | 138 | 134 - 143 mmol/L | + + + + | SATISH IONIZED CA, POC | 1.21 | 1.14 - 1.32 mmol/L | + + + + | CHLORIDE, POC | 105 | 97 - 108 mmol/L | + + + + | GLUCOSE, POC | 106 (H) | 70 - 99 mg/dL | + + + + | HCO3 VENOUS, POC | 26.9 | 22 - 28 mmol/L | + + + + | BASE EXCESS VENOUS, | 0.7 | | | POC | | | + + + + | LACTATE VENOUS, POC | 0.7 | 0.5 - 2.2 mmol/L | + + + + | METHEMOGLOBIN, POC | 1.0 | % | + + + + | PAT TEMP VENOUS,POC | 37.0 | | + + + + + + + | Specimen | Performing Laboratory | + + + | | [facility], [facility]INT [facility] TESTS [address] | | | [place] [address] | + + + INTRAPROCEDURE IMAGING (10/16/2017 10:53 AM) + + | Narrative | + + | See admission or procedure notes for details of any intraprocedure images obtained. | + + 12 LEAD ECG (10/15/2017 2:40 PM)Only the most recent of 2 results within the time period i s included. + + + + | Component | Value | Ref Range | + + + + | VENTRICULAR RATE | 67 | bpm | + + + + | ATRIAL RATE | 67 | ms | + + + + | P-R INTERVAL | 173 | ms | + + + + | P AXIS | 54 | deg | + + + + | QRS DURATION | 152 | ms | + + + + | QT | 457 | ms | + + + + | QTCB | 483 | ms | + + + + | R AXIS | 268 | deg | + + + + | T AXIS | 127 | deg | + + + + | ECG IMPRESSION | Sinus rhythm | | + + + + | ECG IMPRESSION | Left bundle branch block (atypical late | | | | transition)- ABNORMAL ECG - | | + + + + | ECG IMPRESSION | Electronically signed by: SOPHIE DARBY | | | | 10-15-2017 15:19:04 | | + + + + + + + | Specimen | Performing Laboratory | + + + | | [facility] [address] [place] [address] | | | [place] [address] | + + + CARDIAC CATH (10/15/2017 2:11 PM) + + | Procedure Note | + + | Tejal Modi MD - 10/15/2017 2:11 PM PST DATE OF PROCEDURE:October 15, | | 2018PERFORMING PHYSICIAN:Tejal Modi [facility] ATTENDING:Mike Bray MDThere was no | | qualified Fellow available to assist with this procedure therefore I asked Dr. Cintron | | Katarina to assistFELLOW:Arya Low, MDPROCEDURES PERFORMED:1. Limited coronary | | angiography.2. Left heart catheterization.3. Impella CP device insertion and removal.4. | | Percutaneous coronary intervention.5. Central venous access.6. Moderate conscious | | sedation.INDICATIONS:The patient is a 61-year-old gentleman with a history of prior left | | main bifurcation stenting in the setting of ST-elevation myocardial infarction with | | resultant ischemic cardiomyopathy, referred for percutaneous coronary intervention for | | severe left main into left anterior descending coronary artery and ostial left | | circumflex coronary artery in-stent restenosis with symptoms of unstable angina and | | acute decompensated systolic heart failure.CONSENT:The complete alternatives, risks, and | | benefits of the procedure were explained to patient. Signed informed consent was | | obtained and placed in chart prior to beginning the procedure.MEDICATIONS:1. Fentanyl | | 100 mcg IV.2. Heparin 8500 units IV.3. Midazolam 3 mg IV.MODERATE CONSCIOUS SEDATION:I | | personally supervised the administration of moderate conscious sedation by the nursing | | staff for 90 minutes.CONTRAST:Omnipaque 110 mL.FLUOROSCOPY TIME:17.8 minutes.FLUOROSCOPY | | DAP:7406.0 [id number]:1. Left ventricular pressure 91/23 mmHg.2. Aortic | | pressure 93/72 mmHg, mean of 80 mmHg. 3. Heart rate 71 beats per minute.ACCESS:1. | | 14-[place] Impella sheath in the right femoral artery.2. 7-[place] sheath in the left | | femoral artery.3. 6-[place]ese sheath in the right femoral vein.ESTIMATED BLOOD LOSS:50 | | mL.COMPLICATIONS:None.PROCEDURE IN DETAIL:The patient was brought to the cardiac | | catheterization laboratory in the fasting state. The skin over the right wrist, right | | groin, and left groin was prepped and draped in the usual sterile fashion. 1% lidocaine | | infiltration was used to anesthetize the tissue over these areas. We were unable to | | obtain arterial access in the right radial artery, and this was abandoned. Using the | | micropuncture technique and ultrasound guidance, a 5-[place] sheath was inserted in the | | right femoral artery and a 6-[place] sheath was inserted in the right femoral vein. Two | | Perclose devices were deployed in the preclosure method and then the 5-[place]ese sheath was | | exchanged over an Amplatz stiff wire for the 14-[place]ese Impella sheath. A 5-[place]ese | | angled pigtail catheter was then advanced over a standard J-wire and used to enter the | | left ventricular cavity. Left ventricular pressures were measured and the 0.018 Impella | | wire was advanced through the pigtail, and the pigtail was removed. After removal of | | the pigtail, an Impella CP device was advanced over the Impella wire and placed in the | | left ventricular cavity with appropriate placement confirmed under fluoroscopy. The | | Impella device was turned on at P5 with excellent flows and motor currents.Following | | Impella insertion, we then accessed the left femoral artery using micropuncture | | technique and ultrasound guidance and placed a 7-[place]ese sheath. A 7-[place]ese XB 3.5 guide | | catheter was advanced over a standard J-wire and used to engage the ostium of the left | | main coronary artery. Planning cineangiograms were obtained, and then a 0.014 Balance | | Middleweight wire was advanced through the guide catheter and placed in the distal | | aspect of the left anterior descending coronary artery. A second 0.014 Balance | | Middleweight wire was then advanced through the guidewire and placed in the distal | | aspect of the second obtuse marginal branch. We then advanced a 2.5 x 15 mm compliant | | balloon over the guidewire going to left anterior descending coronary artery and moved | | the balloon across the stent to confirm we were not under the stent struts. We repeated | | this procedure with the left circumflex coronary artery wire. After confirming that we | | had not crossed underneath the stent struts with our wires, with the 2.5 x 12 mm | | balloon in the left circumflex coronary, we performed 1 pre-dilation up to a maximum | | pressure of 14 atmospheres for 9 seconds. We then removed this balloon and inserted a | | 3.0 x 12 mm noncompliant balloon over the guidewire going to left anterior descending | | coronary artery and pre-dilated the lesion twice up to a maximum pressure of 16 | | atmospheres for 9 seconds. The circumflex balloon was then used to pre-dilate the | | lesion 1 additional time up to 16 atmospheres for 7 seconds. These balloons were then | | removed, and a 3.0 x 18 mm Resolute Alvaro drug-eluting stent was advanced over the | | guidewire going to left circumflex coronary artery and was placed across the ostial | | lesion, extending back into the left main coronary artery. Appropriate stent placement | | was confirmed under fluoroscopy, the LAD wire was pulled back, and the stent was | | deployed at a maximum pressure of 14 atmospheres for 11 seconds.The stent balloon was | | then removed, and the LAD was rewired through the stent struts. A 2.5 x 15 mm | | noncompliant balloon was then advanced over the guidewire going to left anterior | | descending coronary artery and was used to open the stent struts with 1 inflation up to | | a maximum pressure of 10 atmospheres for 18 seconds. We then removed this balloon and | | exchanged it for a 3.5 x 12 mm noncompliant balloon, which was placed across the distal | | left main extending into the proximal left anterior descending coronary artery and was | | used to dilate the lesion 1 additional time up to 18 atmospheres for 12 seconds. This | | balloon was then removed over the LAD wire and placed over the circumflex wire where we | | used a 3 atmosphere inflation to gently open the stent struts and then advanced the | | balloon across the proximal to mid section of the stent, which was post dilated once up | | to a maximum pressure of 18 atmospheres for 11 seconds. This balloon was then removed | | and was reinserted over the LAD wire and 1 additional inflation was performed at 18 | | atmospheres for 7 seconds of the left main into LAD lesion. The 2.5 x 15 mm compliant | | balloon was then advanced over the guidewire going to left circumflex coronary artery, | | and a kissing inflation was performed in the left main bifurcation up to a maximum | | pressure of 6 atmospheres for 8 seconds. The balloons were removed and cineangiograms | | then demonstrated excellent stent apposition. No evidence of stent edge dissection, | | wire perforation, or thrombus. The guidewires and guide catheter were then removed. | | The Impella device was turned off and pulled out of the body. The 14-[place]ese sheath was | | then removed and the preclosure devices were deployed with excellent hemostasis. One | | Perclose device was then deployed in the left femoral artery with excellent hemostasis. | | Manual pressure was applied after removal of the right femoral venous sheath with | | excellent hemostasis. The patient was taken back to the floor for recovery.CORONARY | | ANGIOGRAPHY:Limited coronary angiography demonstrated severe ostial in-stent restenosis | | of the left circumflex coronary stent and severe in-stent restenosis of the distal left | | main extending into the left anterior descending coronary artery. These findings are | | essentially unchanged from the patient's recent coronary angiogram.PERCUTANEOUS CORONARY | | INTERVENTION:Lesion #1:1. Ostial left circumflex coronary artery in-stent restenosis.2. | | Lesion type: C.3. Lesion length: 16 mm.4. Preintervention ANNA flow: 3.5. | | Postintervention ANNA flow: 3.6. Preintervention stenosis: 95%.7. Postintervention | | stenosis: 0%.8. Stent: 3.0 x 18 mm Resolute Alvaro drug-eluting stent. Lesion #2:1. | | Lesion location: Distal left main coronary artery extending into the left anterior | | descending coronary artery.2. Lesion type: C.3. Lesion length: 10 mm.4. | | Preintervention ANNA flow: 3.5. Postintervention ANNA flow: 3.6. Preintervention | | stenosis: 80%.7. Postintervention stenosis: 0%.8. PTCA: Final kissing balloon | | inflation with a 3.5 mm noncompliant balloon (LAD) and a 2.5 mm compliant balloon | | (LCX).IMPRESSION:Successful percutaneous coronary intervention to the ostial left | | circumflex with one 3.0 x 18 mm Resolute Christiana drug-eluting stent. Successful | | percutaneous coronary transluminal angioplasty of the distal left main extending into | | the left anterior descending coronary artery with a final kissing balloon inflation with | | a 3.5 mm noncompliant and a 2.5 mm compliant balloon.RECOMMENDATIONS:1. Return to floor | | with continued care per primary service.2. Bedrest for 4 hours with routine groin | | precautions.3. Continue clopidogrel 75 mg daily for at least 12 months, consider | | indefinite therapy given bifurcation and left main stenting with multiple stent layers | | if tolerating .4. Continue aspirin 81 mg daily indefinitely.5. Continue aggressive | | cardiac risk factor management, optimal medical care for ischemic cardiomyopathy.6. | | Referral to cardiac rehabilitation on discharge.Arya Low MDI confirm that Firas | | MD Ly supervised and was present throughout the entire procedure.BCN/MODLDD: | | 10/15/2017 13:25:02DT: 10/15/2017 14:11:10Job #: [id number] | |2. Lesion type: C. | |3. Lesion length: 10 mm. | |4. Preintervention ANNA flow: 3. | |5. Postintervention ANNA flow: 3. | |6. Preintervention stenosis: 80%. | |7. Postintervention stenosis: 0%. | |8. PTCA: Final kissing balloon inflation with a 3.5 mm noncompliant balloon (LAD) and a 2. 5 mm compliant balloon (LCX). | | | |IMPRESSION: | |Successful percutaneous coronary intervention to the ostial left circumflex with one 3.0 x 18 mm Resolute Christiana drug-eluting stent. Successful percutaneous coronary transluminal angio plasty of the distal | |left main extending into the left anterior descending coronary artery with a final kissing balloon inflation with a 3.5 mm noncompliant and a 2.5 mm compliant balloon. | | | |RECOMMENDATIONS: | |1. Return to floor with continued care per primary service. | |2. Bedrest for 4 hours with routine groin precautions. | |3. Continue clopidogrel 75 mg daily for at least 12 months, consider indefinite therapy giv en bifurcation and left main stenting with multiple stent layers if tolerating . | |4. Continue aspirin 81 mg daily indefinitely. | |5. Continue aggressive cardiac risk factor management, optimal medical care for ischemic ca rdiomyopathy. | |6. Referral to cardiac rehabilitation on discharge. | | | | | | | |Arya Low MD | | | | | |I confirm that Tejal Modi MD supervised and was present throughout the entire procedure. | | | |BCN/MODL | | | | | | /[id number] | + + ACT, POC-CCL ONLY (10/15/2017 12:43 PM)Only the most recent of 3 results within the time pe riod is included. + +-------+ + | Component | Value | Ref Range | + +-------+ + | ACT, POC CCL | 208 | 90 - 150 | | INTRAPROC | | | + +-------+ + + + + | Specimen | Performing Laboratory | + + + | Blood | [facility], POINT OF CARE TESTS [address] | | | [place] [address] | + + + BRUSH CLEARER SURVEYING EMERGENT/IMMEDIATE PROCEDURE (10/15/2017 11:00 AM) + + | Narrative | + + | Procedure performed in the [facility]. See procedure notes for details. | + + INR (10/15/2017 4:36 AM)Only the most recent of 2 results within the time period is includ ed. + +-------+ + | Component | Value | Ref Range | + +-------+ + | INR | 1.11 | 0.90 - 1.20 INR | + +-------+ + + + + | Specimen | Performing Laboratory | + + + | Blood | [facility], [facility]ORE [address] | | | [place], [place] [address] | + + + + + | Narrative | + + | INR Therapeutic ranges for full anticoagulation: INR for Venous | | Thromboembolism (2.0 - 3.0) INR INR for most patients with | | mech. valves (2.5 - 3.5) INR | + + PET CARDIAC METABOLIC (10/13/2017 6:06 PM) + + + | Specimen | Performing Laboratory | + + + | | [facility]OGNITION | + + + + + | Narrative | + + | EXAM: PET Scan Cardiac 10/13/17 14:07:41 HISTORY: 61-year-old male | | presenting with a stent thrombosis of the LM/LAD and LCx stents. Patient was transferred | | here for consideration of complex PCI versus CABG. Study is to evaluate for viable | | myocardium. COMPARISON: Myocardial perfusion rest scan 10/13/17 | | PROCEDURE: Myocardial viability prep consisting of 12 hour fast, diabetic or not, | | glucose load, insulin if administered Following interview by nuclear medicine | | personnel, the patient uneventfully received 9.3 mCi of 18-F fluorodeoxyglucose via a | | left medial biceps intravenous injection. The blood glucose level was 105. | | After 60 minutes in quiet conditions, non contrast CT scan for attenuation correction | | and anatomic localization was performed. Immediately following, and without moving | | the patient, standard body PET imaging was performed of the heart. Axial, sagittal, | | and coronal images are evaluated. FINDINGS: FDG cardiac PET demonstrates | | severely decreased to absent tracer uptake along the anterior mid to distal wall, mid to | | distal interventricular septum, and apex. Tracer uptake is seen within the rest of the | | left ventricle. Review of the separate myocardial rest perfusion Tc-Sestamibi | | demonstrates extensive severe perfusional defect involving the same areas as described | | above. The non contrast CT for attenuation and localization was also reviewed. No | | suspicious pulmonary nodules are identified. Small bilateral pleural effusions are | | present. No suspicious osseous lesions are identified. IMPRESSION: No | | significant tracer uptake within the ybx-zz-itvfwa anterior wall/interventricular septum | | and apex corresponding to same non-perfused areas seen on myocardial rest perfusion | | scan, compatible with nonviable myocardium in these regions. I have personally | | reviewed the images and, if necessary, edited the report. I agree with the report as | | now presented. | + + + + | Procedure Note | + + | Service Account, [employer] In Interface - 10/14/2017 5:47 PM PST EXAM: PET Scan | | Cardiac 10/13/17 14:07:41HISTORY: 61-year-old male presenting with a stent thrombosis | | of the LM/LAD and LCx stents. Patient was transferred here for consideration of complex | | PCI versus CABG. Study is to evaluate for viable myocardium.COMPARISON: Myocardial | | perfusion rest scan 10/13/17PROCEDURE: Myocardial viability prep consisting of 12 hour | | fast, diabetic or not, glucose load, insulin if administered Following interview by | | nuclear medicine personnel, the patient uneventfully received 9.3 mCi of 18-F | | fluorodeoxyglucose via a left medial biceps intravenous injection. The blood glucose | | level was 105. After 60 minutes in quiet conditions, non contrast CT scan for | | attenuation correction and anatomic localization was performed. Immediately following, | | and without moving the patient, standard body PET imaging was performed of the heart. | | Axial, sagittal, and coronal images are evaluated.FINDINGS: FDG cardiac PET demonstrates | | severely decreased to absent tracer uptake along the anterior mid to distal wall, mid | | to distal interventricular septum, and apex. Tracer uptake is seen within the rest of | | the left ventricle.Review of the separate myocardial rest perfusion Tc-Sestamibi | | demonstrates extensive severe perfusional defect involving the same areas as described | | above.The non contrast CT for attenuation and localization was also reviewed. No | | suspicious pulmonary nodules are identified. Small bilateral pleural effusions are | | present. No suspicious osseous lesions are identified.IMPRESSION: No significant tracer | | uptake within the tjb-mm-unvbib anterior wall/interventricular septum and apex | | corresponding to same non-perfused areas seen on myocardial rest perfusion scan, | | compatible with nonviable myocardium in these regions. I have personally reviewed the | | images and, if necessary, edited the report. I agree with the report as now presented. | |No significant tracer uptake within the bjk-zu-ugzihy anterior wall/interventricular septum and apex corresponding to same non-perfused areas seen on myocardial rest perfusion scan, c ompatible with nonviable myocardium in these regions. | | | | | |I have personally reviewed the images and, if necessary, edited the report. I agree with t he report as now presented. | + + NM MYOCARDIAL PERFUSION (SPECT) SINGLE AT REST OR STRESS (10/13/2017 11:18 AM) + + + | Specimen | Performing Laboratory | + + + | | [facility] | + + + + + | Narrative | + + | EXAM: Regadenoson Sestamibi SPECT Myocardial Perfusion Study 10/13/17 09:54:20 | | HISTORY: Myocardial infarction COMPARISON : None TECHNIQUE: This is a one day | | (rest only) study. The rest portion was performed on 10/13/17. The patient | | was injected with 29.1 mCi Tc 99m sestamibi. Gated SPECT images were acquired one | | hour after injection. FINDINGS: On rest projection images, there is | | significant patient motion. There is no significant soft tissue attenuation. | | On rest SPECT images, there is an extensive severe defect involving the anterior mid to | | distal wall, apex, and anterior septum, involving approximately 40% of the left | | ventricular myocardium. Left ventricle wall motion of the affected region | | is akinetic and dyskinetic and brightening is nearly absent. LVEF is | | calculated to be 24%. IMPRESSION: Extensive severe perfusional defect involving | | approximately 40% of the left ventricular myocardium with severe wall motion abnormality | | and ejection fraction of 24%. This study is categorized as high risk. Study | | interpreted with Dr. Will Ann of cardiology. I have personally reviewed the | | images and, if necessary, edited the report. I agree with the report as now | | presented. | + + + + | Procedure Note | + + | Service Account, [employer] Res In Interface - 10/13/2017 5:30 PM PST EXAM: Regadenoson | | Sestamibi SPECT Myocardial Perfusion Study 10/13/17 09:54:20HISTORY: Myocardial | | infarctionCOMPARISON : NoneTECHNIQUE: This is a one day (rest only) study. The rest | | portion was performed on 10/13/17. The patient was injected with 29.1 mCi Tc 99m | | sestamibi. Gated SPECT images were acquired one hour after injection. FINDINGS: On | | rest projection images, there is significant patient motion. There is no significant | | soft tissue attenuation. On rest SPECT images, there is an extensive severe defect | | involving the anterior mid to distal wall, apex, and anterior septum, involving | | approximately 40% of the left ventricular myocardium. Left ventricle wall motion | | of the affected region is akinetic and dyskinetic and brightening is nearly absent. | | LVEF is calculated to be 24%.IMPRESSION:Extensive severe perfusional defect involving | | approximately 40% of the left ventricular myocardium with severe wall motion abnormality | | and ejection fraction of 24%. This study is categorized as high risk.Study interpreted | | with Dr. Will Ann of cardiology.I have personally reviewed the images and, if | | necessary, edited the report. I agree with the report as now presented. | |IMPRESSION: | | | |Extensive severe perfusional defect involving approximately 40% of the left ventricular helene cardium with severe wall motion abnormality and ejection fraction of 24%. This study is timothy gorized as high risk. | | | |Study interpreted with Dr. Will Ann of cardiology. | | | | | | | |I have personally reviewed the images and, if necessary, edited the report. I agree with t he report as now presented. | + + ORDERS OTHER (10/13/2017)Only the most recent of 2 results within the time period is includ ed.APTT (ACT. PART. THROMBO TIME) (10/12/2017 8:44 PM)Only the most recent of 6 results wit hin the time period is included. + +-------+ + | Component | Value | Ref Range | + +-------+ + | APTT | 28.7 | 26.0 - 36.0 seconds | + +-------+ + + + + | Specimen | Performing Laboratory | + + + | Blood | [facility], [address] | | | [place] [address] | + + + + + | Narrative | + + | Acute Coronary Syndrome Heparin Protocol aPTT 6 hrs after every heparin rate | | change; If aPTT within target range for 2 consecutive results, recheck every AM APTT | | Therapeutic Range: (75 - 120) sec | | Heparin levels of 0.35 - 0.7 U/mL | + + MR CARDIAC COMPREHENSIVE W/O CONTRAST (10/12/2017 12:38 PM) + + + | Specimen | Performing Laboratory | + + + | | [facility] | + + + + + | Narrative | + + | Report ====== Floor Trader: Rodríguez Fortuen ([id number]), shubham lockhart Health Education Coordinator: shubham | | richy Fellow: shubham lockhart Lawn Mower Mechanic: shubham lockhart Viewer: shubham | | richy Report Date: 16 Oct 2017, 09:22:25 [facility] Patient ------- Patient: | | RON MCKEON Acc #: [id number] | | Ethnicity: N Status: Final Report Report Number: [id number] Gender: Male Birthdate: 24 | | Oct 1955 (61 yrs) Study Date: 12 Oct 2017 Study Description: CMR with Flows with | | Contrast Referring Physician: KHURRAM BEDOYA Blood Pressure: / Heart rate: | | Height (cm): 0 Weight (kg): 89 BMI (kg/m ): 0 BSA (m ): 0 (Mosteller Formula) | | Image Quality: Good Scanner Casing Grader: Complete Solar Scanner Model: Universal Devices | | Scanner Serial Number: [id number] Scanner Software Platform: [id number] Staff: Rodríguez | | Tong Modality: MR Indication Name: routine Protocol Name: CMR W Flows WO Contrast | | Findings -------- Non-cardiac findings were reviewed by Dr. Curtis. This exam was | | terminated prematurely and is lmiited to lead press operator images. There are bilateral pleural | | effusions. There is metal artifact obscuring the heart. The metal structures were not | | readily identifiable on limited chest xray. Primary team was notified of the findings | | and termination of further sequences. Summary ------- 1. There is metal artifact | | obscuring the heart. The metal structures were not readily identifiable on limited chest | | xray. Primary team was notified of the findings and termination of further sequences. | | 2. There are bilateral pleural effusions. 3. Probable left atrial enlargement. I | | have personally reviewed the images and, if necessary, edited the report. I agree | | with the report as now presented. | + + + + | Procedure Note | + + | Service Lluvia, Arely Res In Interface - 10/16/2017 9:22 AM PST | | Report======Floor Trader: Rodríguez Tong ([id number]), shubham Rodriguezalyst: shubham | | richyFellow: shubham Garciaechnician: shubham Johniewer: shubham | | [email or web address] Date: 16 Oct 2017, 09:22:25 PSTPatient-------Patient: RON MCKEON | | JMedical Record Number: [id number]: [id number] #: [id number]: NStatus: | | Final ReportReport Number: [id number]: MaleBirthdate: 1955 (61 yrs)Study Date: 05 | | Oct 2017Study Description: CMR with Flows with ContrastReferring Physician: KHURRAM | | HEITNERBlood Pressure: /Heart rate:Height (cm): 0Weight (kg): 89BMI (kg/m ): 0BSA | | (m ): 0 (Mosteller Formula)Image Quality: SentisiscanEBDSoft Casing Grader: Jellycoaster | | Before the Call Model: [employer] Serial Number: [id number] Software Platform: | | [id number]: Rodríguez FortuneModality: MRIndication Name: routineProtocol Name: | | CMR W Flows WO ContrastFindings--------Non-cardiac findings were reviewed by | | Fusmoon.This exam was terminated prematurely and is lmiited to lead press operator images.There are | | bilateral pleural effusions. There is metal artifact obscuring the heart. The metal | | structures were not readily identifiable on limited chest xray. Primary team was | | notified of the findings and termination of further sequences.Summary-------1. There is | | metal artifact obscuring the heart. The metal structures were not readily identifiable | | on limited chest xray. Primary team was notified of the findings and termination of | | further sequences.2. There are bilateral pleural effusions.3. Probable left atrial | | enlargement.I have personally reviewed the images and, if necessary, edited the report. | | I agree with the report as now presented. | |Referring Physician: KHURRAM BEDOYA | |Blood Pressure: / | |Heart rate: | |Height (cm): 0 | |Weight (kg): 89 | |BMI (kg/m ): 0 | |BSA (m ): 0 (Mosteller Formula) | |Image Quality: Good | |Scanner Casing Grader: Complete Solar | |Scanner Model: Universal Devices | |Scanner Serial Number: [id number] | |Scanner Software Platform: [id number] | |Staff: Rodríguez Fortune | |Modality: MR | |Indication Name: routine | |Protocol Name: CMR W Flows WO Contrast | |Findings | |-------- | |Non-cardiac findings were reviewed by Dr. Curtis. | |This exam was terminated prematurely and is lmiited to lead press operator images. | |There are bilateral pleural effusions. There is metal artifact obscuring the heart. The met al structures were not readily identifiable on limited chest xray. Primary team was notified of the findings and termination of further sequences. | |Summary | |------- | |1. There is metal artifact obscuring the heart. The metal structures were not readily ident ifiable on limited chest xray. Primary team was notified of the findings and termination of further sequences. | |2. There are bilateral pleural effusions. | |3. Probable left atrial enlargement. | | | | | |I have personally reviewed the images and, if necessary, edited the report. I agree with t he report as now presented. | + + CULTURE, SPUTUM (10/11/2017 5:45 PM) + + + | Specimen | Performing Laboratory | + + + | Sputum | [facility] [address] [place], [place] | | | [address] | + + + + + | Narrative | + + | Culture Report: This culture has been discontinued. Gram Stain: Squamous | | epithelial cells in the specimen indicate the presence of significant oropharyngeal | | contamination. CRITICAL RESULTS Results called to and verified by: Vicki | | Amy at phone # [facility] on: 10/12/2017 8:10:02 AM PST by: [id number] | + + HEMOGLOBIN A1C, BLOOD (10/11/2017 12:43 PM) + + + + | Component | Value | Ref Range | + + + + | HEMOGLOBIN A1C | 5.9 (H)Comment: Hgb A1C Interpretive | <5.7 % | | | Information: <5.7% - Normal | | | | 5.7-6.4% - Consistent with | | | | pre-diabetes >6.4% - Consistent | | | | with diabetes | | | | 5.7-6.4% - Consistent with pre-diabetes | | | | >6.4% - Consistent with diabetes | | | | | | | | | | + + + + + + + | Specimen | Performing Laboratory | + + + | Blood | [facility] + [facility] [address] [facility] | | | [place] [address] | + + + + + | Narrative | + + | Alternate forms of testing such as fructosamine should be considered for | | monitoring prison glycemic control in patients with: Increased red cell turnover, | | certain hemoglobinopathies (e.g., HbS, HbE, HbC and thalassemia syndromes), anemias, | | blood loss, chronic liver disease and hemochromatosis (artefactually low HbA1c); iron | | deficiency anemia (artefactually high HbA1c due to enhanced glycation of hemoglobin). | | Alternate forms of testing such as fructosamine should be considered for | | monitoring termite treater helper glycemic control in patients with: Increased red cell turnover, | | certain hemoglobinopathies (e.g., HbS, HbE, HbC and thalassemia syndromes), anemias, | | blood loss, chronic liver disease and hemochromatosis (artefactually low HbA1c); iron | | deficiency anemia (artefactually high HbA1c due to enhanced glycation of hemoglobin). | | | + + TRANSTHORACIC ECHOCARDIOGRAM, ADULT (10/11/2017 11:47 AM) + + + + | Component | Value | Ref Range | + + + + | BIPLANE, EF | 32 | | + + + + | EJECTION FRACTION | 30 to 35 | | + + + + | LA DIMENSION | 3.9 | | + + + + | LVIDD | 5.9 | | + + + + | MV A VMAX | 0.7 | | + + + + | MV E? | 0.1 | | + + + + | MV E VMAX | 0.7 | | + + + + | RV TAPSE | 1.5 | | + + + + | RV TDI S? | 9.0 | | + + + + | EJECTION FRACTION | 32.5 | % | | RANGE MEAN VALUE | | | + + + + + + + | Specimen | Performing Laboratory | + + + | | [facility] [address] [place] [address] | | | [place] [address] | + + + + + | Narrative | + + | [facility] Adult Echocardiography Laboratory | | [address], [place] [address] Ph: | | Pt Name: RON MCKEON Study | | Date/Time 10/11/2017 / 11:47:35 AM | | Most recent prior: 03/30/2017 Acc #: [id number] No. previous | | echos: 4 : 1955 61 years Heart Rate: 84 bpm | | Height: 69.0 in Blood Pressure: 115/68 mm/Hg | | Weight: 196.0 lb Gender: M | | BSA: 2.05 m2 Order ID: [id number] | | Stand In: Shahab Sutton [facility] Referring Provider: Kimmy Low Patient | | Location: Modalities Performed: 2D, Color flow, Spectral Doppler and Lumason | | contrast. Study Quality: Fair. Imaging Limitations: Patient size and body habitus. and | | there is prominent lung artifact seen. Exam Indication: Chest pain History: 61 year | | old male with extensive PMHx including STEMI, CAD, ICM, HTN, aflutter, and previous | | tobacco use disorder who presents on transfer from [place] for consideration of | | complex PCI vs. CABG for in-stent stenosis of previous PCI of both LCx and LM/LAD | | stents after NSTEMI in the setting of sepsis last week. Patient history has been | | obtained from the EHR Transthoracic Echocardiographic Report | | + + Final | | Impressions: | | | | | | | | | | 1. The left | | ventricular cavity size is | | normal. 2. The LV | | function is severely | | abnormal. | | 3. Left ventricular systolic thickening is segmentally abnormal (see | | comments | | below). | | 4. Visually estimated left ventricular | | ejection fraction is 30 - 35%. 5. RV cavity size is normal. RV global | | systolic function is mildly reduced. 6. There is mild dilatation of the ascending | | aorta. (See comments below). | | | | 7. Compared to the | | most recent exam dated, 03/30/2017, the LVEF is similar. | | | | | | + + | | Description of Findings: Cardiac Rhythm: Normal sinus rhythm. Left Ventricle: The | | left ventricular cavity size is normal. Visually estimated left ventricular ejection | | fraction is 30 - 35%. The ejection fraction is 32.2 % as measured by Landry's biplane | | method. The LV function is severely abnormal. Due to poor endocardial definition, | | ultrasound contrast was used (Lumason). Left Ventricular Wall Motion: The entire | | inferior septum, mid and apical anterior septum, apical anterior segment, and apex are | | akinetic. The basal anteroseptal segment, mid anterior segment, and mid inferior | | segment are hypokinetic. All remaining scored segments are normal. Left ventricular | | systolic thickening is segmentally abnormal. Right Ventricle: Right ventricular | | cavity size is normal. The RV global systolic function is mildly reduced. TAPSE | | measures 1.5cm. The RV TDI s' velocity is 9cm/sec. Unable to calculate RVSP due to | | absence of tricuspid regurgitation. Aortic Valve: The aortic valve is trileaflet and | | normal in structure and function. No indication of aortic valve regurgitation. Mitral | | Valve: The mitral valve is structurally normal. No evidence of mitral valve stenosis. | | Mild mitral valve regurgitation. Tricuspid Valve: The tricuspid valve is structurally | | normal. No tricuspid regurgitation. Pulmonic Valve: The peak trans pulmonic gradient | | is 5.3 mmHg. Aorta: There is mild dilatation of the ascending aorta. Venous: Inferior | | vena cava is normal with normal inspiratory collapse. Pericardium: No pericardial | | effusion is seen. 2D Measurements Doppler Measurements | | 2D NL Values | | Aortic Mitral LVID(d) 5.91 cm (3.5-5.7cm) Max | | Rohan Peak E 0.71 m/s LVID(s) 5.13 | | cm Mean grad Peak A 0.72 | | m/s IVS(d) 1.01 cm (0.6-1.1cm) LVOT Rohan 0.91 m/s E/A Ratio 0.99 | | LVPW(d) 1.05 cm (0.6-1.1cm) TDI | | (E/e') 8.7 LA A/Ps 2D 3.90 cm (2.7-3.9cm) LVOT Diam 2.20 cm MV mn gd | | | | Tricuspid Pulmonic Biplane EF 32.2 | | % TR Vmax PV Vmax 1.2 | | m/s RA Press 3 | | mmHg RVOT VTI 15.4 cm | | | | Aorta: Index: | | Ao Sinus 3.40 | | cm (2.1-3.5cm) 16.6 mm/m2 | | Asc Ao (prox) 3.70 | | cm 18.1 mm/m2 Evaluation of chamber size and geometry is | | accomplished through the incorporation of linear, volumetric, and indexed values | | Wall Scoring: Report electronically signed by: [id number] Khurram Bedoya MD | | (10/11/2017, 12:59:49 PM) Final (Updated) | + + + + | Procedure Note | + + | Interface, Ecg Results - 10/11/2017 1:00 PM [facility] | | [facility] [place] [place] Echocardiography Laboratory [address] [place] [address] | | [place], [place] [address] Pt Name: RON Chaudhary | | MIKE Study Date/Time 10/11/2017 / 11:47:35 AMMRN: [id number] Most | | recent prior: 03/30/2017Acc #: [id number] No. previous echos: 4DOB: | | 1955 61 years Heart Rate: 84 bpmHeight: 69.0 in Blood | | Pressure: 115/68 mm/HgWeight: 196.0 lb Gender: MBSA: | | 2.05 m2 Order ID: [id number] Stand In: Shahab Sutton RDCSReferring | | Provider: Kimmy LowPatient Location: 7CModalities Performed: 2D, Color flow, | | Spectral Doppler and Lumason contrast.Study Quality: Fair.Imaging Limitations: Patient | | size and body habitus. and there is prominent lung artifact seen.Exam Indication: Chest | | painHistory: 61 year old male with extensive PMHx including STEMI, CAD, ICM, HTN, | | aflutter, and previous tobacco use disorder who presents on transfer from [place] | | for consideration of complex PCI vs. CABG for in-stent stenosis of previous PCI of both | | LCx and LM/LAD stents after NSTEMI in the setting of sepsis last week. Patient history | | has been obtained from the EHR Transthoracic Echocardiographic | | Report+ +Fi | | nal Impressions: | | | | 1. The left ventricular cavity | | size is normal. 2. The LV function is severely abnormal. | | 3. Left ventricular systolic thickening is | | segmentally abnormal (see comments below). | | 4. Visually estimated left ventricular ejection fraction is 30 | | - 35%. 5. RV cavity size is normal. RV global systolic function is mildly | | reduced. 6. There is mild dilatation of the ascending aorta. (See comments below). | | 7. | | Compared to the most recent exam dated, 03/30/2017, the LVEF is similar. | | | | + + | | Description of Findings: Cardiac Rhythm: Normal sinus rhythm.Left Ventricle: The left | | ventricular cavity size is normal. Visually estimated left ventricular ejection fraction | | is 30 - 35%. The ejection fraction is 32.2 % as measured by Landry's biplane method. | | The LV function is severely abnormal. Due to poor endocardial definition, ultrasound | | contrast was used (Lumason).Left Ventricular Wall Motion: The entire inferior septum, | | mid and apical anterior septum, apical anterior segment, and apex are akinetic. The | | basal anteroseptal segment, mid anterior segment, and mid inferior segment are | | hypokinetic. All remaining scored segments are normal. Left ventricular systolic | | thickening is segmentally abnormal.Right Ventricle: Right ventricular cavity size is | | normal. The RV global systolic function is mildly reduced. TAPSE measures 1.5cm. The RV | | TDI s' velocity is 9cm/sec. Unable to calculate RVSP due to absence of tricuspid | | regurgitation.Aortic Valve: The aortic valve is trileaflet and normal in structure and | | function. No indication of aortic valve regurgitation.Mitral Valve: The mitral valve is | | structurally normal. No evidence of mitral valve stenosis. Mild mitral valve | | regurgitation.Tricuspid Valve: The tricuspid valve is structurally normal. No tricuspid | | regurgitation.Pulmonic Valve: The peak trans pulmonic gradient is 5.3 mmHg.Aorta: There | | is mild dilatation of the ascending aorta.Venous: Inferior vena cava is normal with | | normal inspiratory collapse.Pericardium: No pericardial effusion is seen.2D Measurements | | Doppler Measurements 2D NL Values Aortic | | MitralLVID(d) 5.91 cm (3.5-5.7cm) Max Rohan Peak E 0.71 | | m/sLVID(s) 5.13 cm Mean grad Peak A 0.72 m/sIVS(d) | | 1.01 cm (0.6-1.1cm) LVOT Rohan 0.91 m/s E/A Ratio 0.99LVPW(d) 1.05 cm | | (0.6-1.1cm) TDI (E/e') 8.7LA A/Ps 2D 3.90 cm (2.7-3.9cm) LVOT | | Diam 2.20 cm MV mn gd Tricuspid | | PulmonicBiplane EF 32.2 % TR Vmax PV Vmax 1.2 m/s | | RA Press 3 mmHg RVOT VTI 15.4 cm | | Aorta: Index: Ao | | Sinus 3.40 cm (2.1-3.5cm) 16.6 mm/m2 Asc Ao (prox) | | 3.70 cm 18.1 mm/w1Bhzepkdfuu of chamber size and geometry is accomplished | | through the incorporation of linear, volumetric, and indexed values Wall Scoring: Report | | electronically signed by: [id number] Khurram Bedoya MD (10/11/2017, 12:59:49 PM) | | Final (Updated) | |Right Ventricle: Right ventricular cavity size is normal. The RV global systolic | |function is mildly reduced. TAPSE measures 1.5cm. The RV TDI s' velocity is 9cm/sec. | |Unable to calculate RVSP due to absence of tricuspid regurgitation. | |Aortic Valve: The aortic valve is trileaflet and normal in structure and function. No | | indication of aortic valve regurgitation. | |Mitral Valve: The mitral valve is structurally normal. No evidence of mitral valve | |stenosis. Mild mitral valve regurgitation. | |Tricuspid Valve: The tricuspid valve is structurally normal. No tricuspid | |regurgitation. | |Pulmonic Valve: The peak trans pulmonic gradient is 5.3 mmHg. | |Aorta: There is mild dilatation of the ascending aorta. | |Venous: Inferior vena cava is normal with normal inspiratory collapse. | |Pericardium: No pericardial effusion is seen. | |2D Measurements Doppler Measurements | | | | 2D NL Values Aortic Mitral | |LVID(d) 5.91 cm (3.5-5.7cm) Max Rohan Peak E 0.71 m/s | |LVID(s) 5.13 cm Mean grad Peak A 0.72 m/s | |IVS(d) 1.01 cm (0.6-1.1cm) LVOT Rohan 0.91 m/s E/A Ratio 0.99 | |LVPW(d) 1.05 cm (0.6-1.1cm) TDI (E/e') 8.7 | |LA A/Ps 2D 3.90 cm (2.7-3.9cm) LVOT Diam 2.20 cm MV mn gd | | Tricuspid Pulmonic | |Biplane EF 32.2 % TR Vmax PV Vmax 1.2 m/s | | RA Press 3 mmHg RVOT VTI 15.4 cm | | | | Aorta: Index: | | Ao Sinus 3.40 cm (2.1-3.5cm) 16.6 mm/m2 | | Asc Ao (prox) 3.70 cm 18.1 mm/m2 | |Evaluation of chamber size and geometry is accomplished through the incorporation of | |linear, volumetric, and indexed values | | | |Wall Scoring: | | | | | |Report electronically signed by: [id number] Khurram Bedoya MD (10/11/2017, 12:59:49 | |PM) | | | | | | | | Final (Updated) | + + HEPARIN, EITHER STANDARD / LMW, BLOOD (10/11/2017 6:31 AM) + +-------+ + | Component | Value | Ref Range | + +-------+ + | HEPARIN, STD LMW | 0.38 | U/mL | + +-------+ + + + + | Specimen | Performing Laboratory | + + + | Blood | [facility], [address] | | | [place] [address] | + + + + + | Narrative | + + | Heparin, Either STD/LMW - Therapeutic Ranges: Heparin, Unfractionated: 0.35 | | - 0.70 U/mL Enoxaparin, LMWH: 0.70 - 1.20 U/mL Dalteparin, | | LMWH: 0.70 - 1.20 U/mL Tinzaparin, LMWH: Therapeutic | | range not established. Preliminary | | studies suggest range similar to | | dalteparin. Clinical correlation | | required. Heparin levels may be unreliable for: | | Total bilirubin >28.8 mg/dL | | Triglycerides >690 mg/dL | | or Moderate to Gross Hemolysis | + + RENAL FUNCTION SET (NA,K,CL,CO2,BUN,CREAT,GLUC,CA,PHOS,ALB ) (10/11/2017 6:31 AM) + +---------+ + | Component | Value | Ref Range | + +---------+ + | GLUCOSE, PLASMA | 104 (H) | 70 - 99 mg/dL | | (LAB) | | | + +---------+ + | BUN, PLASMA (LAB) | 20 | 6 - 20 mg/dL | + +---------+ + | CREATININE PLASMA | 1.05 | 0.70 - 1.30 mg/dL | | (LAB) | | | + +---------+ + | EGFR - | >60 | >60 mL/min | | [facility] | | | + +---------+ + | EGFR NON | >60 | >60 mL/min | | -[place] | | | + +---------+ + | SODIUM, PLASMA (LAB) | 141 | 136 - 145 mmol/L | + +---------+ + | POTASSIUM, PLASMA | 3.6 | 3.4 - 5.0 mmol/L | | (LAB) | | | + +---------+ + | CHLORIDE, PLASMA | 107 | 97 - 108 mmol/L | | (LAB) | | | + +---------+ + | TOTAL CO2, PLASMA | 25 | 21 - 32 mmol/L | | (LAB) | | | + +---------+ + | CALCIUM, PLASMA | 8.2 (L) | 8.6 - 10.2 mg/dL | | (LAB) | | | + +---------+ + | CALCIUM(ALB | 9.2 | 8.6 - 10.2 mg/dL | | CORRECTED) | | | + +---------+ + | ALBUMIN, PLASMA | 2.8 (L) | 3.5 - 4.7 g/dL | | (LAB) | | | + +---------+ + | PHOSPHORUS, PLASMA | 3.8 | 2.4 - 4.7 mg/dL | | (LAB) | | | + +---------+ + | POTASSIUM CMNT | No Hemo | | + +---------+ + | ANION GAP | 9 | 4 - 11 mmol/L | + +---------+ + | ANION GAP(ALB | 12 (H) | 4 - 11 mmol/L | | CORRECTED) | | | + +---------+ + + + + | Specimen | Performing Laboratory | + + + | Blood | [facility], [address] | | | [place] [address] | + + + + + | Narrative | + + | Adult glucose reference range change effective 7-12-17. GFR is estimated using the | | MDRD equation recommended by the National Kidney Disease Education Program. | | Estimated GFR Interpretive Information: <60 mL/min/1.73 sq | | m Chronic Kidney Disease <15 mL/min/1.73 sq | | m Kidney Failure Estimated GFR greater that 60 mL/min/1.73 | | sq m is of limited clinical value. The MDRD equation is not valid in the following | | situations: - Patients under 18 years of age - Severe malnutrition or obesity - | | Vegetarian diet - Rapidly changing kidney function | + + LIPID SET (TRIG, T CHOL, HDL, CALC LDL) (10/10/2017 11:27 PM) + +---------+ + | Component | Value | Ref Range | + +---------+ + | CHOLESTEROL (LAB) | 89 | <200 mg/dL | + +---------+ + | TRIGLYCERIDES | 131 | <150 mg/dL | + +---------+ + | HDL CHOLESTEROL | 21 (L) | >40 mg/dL | + +---------+ + | HDL CMNT | No Hemo | | + +---------+ + | LDL CHOLESTEROL, | 42 | <100 mg/dL | | CALCULATED | | | + +---------+ + | VLDL CHOLESTEROL, | 26 | <31 mg/dL | | CALCULATED | | | + +---------+ + | NON-HDL CHOLESTEROL | 68 | <130 mg/dL | + +---------+ + + + + | Specimen | Performing Laboratory | + + + | Blood | [facility], [address] [facility] | | | [place] [address] | + + + + + | Narrative | + + | Cholesterol Reference Range: Desirable: <200 | | mg/dL Borderline High: 200 - 239 mg/dL | | High: >=240 mg/dL LDL Cholesterol | | Reference Range: Optimal: <100 mg/dL Near | | Optimal: 100-129 mg/dL Borderline High: 130-159 mg/dL | | High: 160-189 mg/dL Very High: | | >=190 mg/dL non-HDL Cholesterol Reference Range: | | Optimal: <130 mg/dL Near Optimal: 130-159 mg/dL | | Borderline High: 160-189 mg/dL High: 190-209 | | mg/dL Very High: >=210 mg/dL Triglyceride Reference | | Range: Normal: <150 mg/dL Borderline High: 150-199 mg/dL | | High: 200-499 mg/dL Very High: >=500 | | mg/dL HDL Reference Range: High Risk: <40 mg/dL | | Desirable: >=60 mg/dL | + + from Last 3 Months
--- OUTSIDE RECORDS SUMMARY | ~2017-11-13 | XMS | Clinical Summary ---
Demographics + + + | Address | [address] [place] [address] [address] | | | [place] [address] | + + + | Home Phone | | + + + | Preferred Language | Unknown | + + + | Marital Status | | + + + | Presybeterian Affiliation | NRP | + + + [...] | | | | | [place] [address] | | + + + + + Care Team Providers + +------+ + | Care Professor Of Physical Education Name | Role | Phone | + +------+ + | Chato Matson MD | PP | | + +------+ + Source Comments EULOGIO is fully live on both [facility] Ambulatory and [facility] InPatient.[facility] Allergies No Known Allergies Current [...] resynchronization therapy | 10/17/2017 | | defibrillator (JOURNEYMAN PATTERNMAKER-D) | | + + + | Influenza, [...] edema. 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 | | -secretions improving, cough strong -s/p [...] stayExtubated 03/22, started on | | NC F0Smkqz infusion begun 03/22 for daily goal -1 [...] during cath | | lab procedure at [facility]. 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 | | [...] | and thus a | | | JOURNEYMAN PATTERNMAKER-D was | | | placed. | | [...] | | EP 2/9, | | | JOURNEYMAN PATTERNMAKER-D | | | -- | | | [...] | be noted on | | | JOURNEYMAN PATTERNMAKER-D and | | | could | | [...] | on. EGD at | | | [facility] | | | on 10/05 | | [...] | | # Pre | | | [id number] | | | 5.6 on | | [...] | Wound check | | | from JOURNEYMAN PATTERNMAKER-D | | | | | | placement2. [...] | | | [place] | | | [place], | | | ACNP. Go | | [...] | | | CLINICS | | | [id number] | | | [address] | | | [address] | | | [place] | | | [phone] | | | [phone] | | | [place] | | | [place], | | | ACNP. Go | | [...] | | | CLINICS | | | [id number] | | | [address] | | | [address] | | | [place] | | | [phone] | | | [phone] | | | [...] | | 25 mg | | | [id number] | | | y known as: | [...] | CR 30 mg | | | [id number] | | | y known as: | [...] | | mm Resolute | | | Sterling | | | drug-elutin | | | [...] | | | us:Phone: | | | [phone] | | | [phone] | | | Cardiology | | | Division | | | Office | | | | | | [phone] | | | 0 | | | [...] | | | lar | | | [place] | | | [place] | | | Health & | | [...] | | | HANDY | | | [id number] | | Tejal Pettit MD | | | | | | X / | | | | | | | | /[id number] | | | | | | | | [id number] | + +------+--------+ +--------+--------+--------+ Results CAPILLARY BLOOD [...] TESTS [address] | | | [place] [address] | + + + X-RAY CHEST 2 [...] Note | + + | Service Account, [email or web address] In Interface - 10/17/2017 7:51 AM PST [...] | + + + | Blood | [facility] LABOR[facility] SERVICES, CORE [address] [place] [address] | | | [place] [address] | + + + BASIC METABOLIC SET [...] | >60 | >60 mL/min | | SAO TOMEAN | | | + + + + | EGFR NON | 51 (L) | >60 mL/min | | -SAO TOMEAN | | | + + + + [...] | + + + | Blood | [facility] SERVICES, CORE [address] [facility] | | | [place], [place] [address] | + + + + + | [...] | | ------ CBC (HEMOGRAM) | | ONLY[[id number]] Abnormal Final | | result Please view [...] | Narrative | + + | STUDY: LA CHEST 1 VIEW HISTORY: Evaluated lead placement. COMPARISON: | | STUDY: LA CHEST 1 VIEW FINDINGS: A new left [...] Note | + + | Service Account, [email or web address] In Interface - 10/17/2017 7:51 AM PST STUDY: LA CHEST 1 | | VIEWHISTORY: Evaluated lead placement.COMPARISON: STUDY: LA CHEST 1 VIEWFINDINGS: A | | new [...] procedure. | | He is candidate for JOURNEYMAN PATTERNMAKER-D since he as class 2 baseline heart failure and currently | | class 3 heart failure with LBBB 152 msec. PROCEDURE ATTENDING: Sophie Darby | | FELLOW: Amarilis Castle MD PROCEDURAL | | DATA: Procedure: New implant Implanted generator zinc miner: Medtronic | | Implanted leads zinc miner: Medtronic Radha-procedure Anticoag: None Presenting | | rhythm: NSR Existing device under advisory? 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 INTAKE AND OUTPUT: 1000 ml | [...] DEVICE INFORMATION: | | BiV-ICD pulse generator: Regional Safety Manager: Medtronic Model number: [id number] | | Serial number: [id number] RA lead: Regional Safety Manager: Medtronic Model number: | | 5076-52 Serial number: [id number] RV lead: Regional Safety Manager: Medtronic | | Model number: [id number] Serial number: [id number] CS lead: | | Regional Safety Manager: Medtronic Model number: [id number] Serial number: [id number] | | MEASURED PARAMETERS: RA lead: P [...] | | Fellow Division of Cardiovascular Medicine [facility] | | Pager [phone] Pursuant to Federal Medicare requirements, I certify that I, Sophie | | Wilner BREWER, was present for the entire procedure, performed all critical elements, and | | participated directly in the generation of this report. Sophie Darby MD | | Cardiovascular Medicine - Electrophysiology [facility] Cardiovascular [place] at [facility] | | | + + VBG-FULL ABL, [...] Laboratory | + + + | | [facility], POINT OF [facility] TESTS [address] | | | [place] [address] | + + + INTRAPROCEDURE IMAGING (10/16/2017 [...] Laboratory | + + + | | [facility] [address] [place] [address] | | | [place] [address] | + + + CARDIAC CATH (10/15/2017 2:11 PM) + + | Procedure Note | + + | Tejal Modi MD - 10/15/2017 2:11 PM PST DATE OF PROCEDURE:October 15, | | 2018PERFORMING PHYSICIAN:Tejal Modi [facility] ATTENDING:Mike Bray MDThere was no | | [...] 110 mL.FLUOROSCOPY TIME:17.8 minutes.FLUOROSCOPY | | DAP:7406.0 sFyly0YNMIYCDRTTPC:1. Left ventricular pressure 91/23 mmHg.2. Aortic | | pressure 93/72 mmHg, mean of 80 mmHg. 3. Heart rate 71 beats per minute.ACCESS:1. | | 14-Ghanaian Impella sheath in the right femoral artery.2. 7-Ghanaian sheath in the left | | femoral artery.3. 6-Ghanaian sheath in the right femoral vein.ESTIMATED BLOOD [...] | micropuncture technique and ultrasound guidance, a 5-Ghanaian sheath was inserted in the | | right femoral artery and a 6-Ghanaian sheath was inserted in the right femoral vein. Two | | Perclose devices were deployed in the preclosure method and then the 5-Ghanaian sheath was | | exchanged over an Amplatz stiff wire for the 14-Ghanaian Impella sheath. A 5-Ghanaian | | angled pigtail catheter was then [...] technique and ultrasound guidance and placed a 7-Ghanaian sheath. A 7-Ghanaian XB 3.5 guide | | catheter was [...] and pulled out of the body. The 14-Ghanaian sheath was | | then removed and [...] with one 3.0 x 18 mm Resolute Sterling drug-eluting stent. Successful | | percutaneous coronary [...] | | 10/15/2017 13:25:02DT: 10/15/2017 14:11:10Job #: [id number] | |2. Lesion type: C. | |3. [...] with one 3.0 x 18 mm Resolute Sterling drug-eluting stent. Successful percutaneous coronary transluminal angio [...] |BCN/MODL | | | | | | /[id number] | + + ACT, POC-CCL ONLY (10/15/2017 [...] | + + + | Blood | [facility], POINT OF CARE TESTS [address] | | | [place] [address] | + + + CHECK WRITING MACHINE OPERATOR EMERGENT/IMMEDIATE PROCEDURE (10/15/2017 11:00 AM) + + | Narrative | + + | Procedure performed in the Cardiac [address]forming [address] Manager. See procedure notes for details. | + [...] | + + + | Blood | [facility], CORE [address] | | | [place], [place] [address] | + + + + + | [...] Laboratory | + + + | | [facility] RADIOLOGY VOICE RECOGNITION | + + + [...] | | significant tracer uptake within the snw-ek-qfxcwd anterior wall/interventricular septum | | and apex [...] Note | + + | Service Account, [email or web address] In Interface - 10/14/2017 5:47 PM PST [...] significant tracer | | uptake within the nyj-pb-gwufos anterior wall/interventricular septum and apex | | corresponding to same non-perfused areas seen on myocardial rest perfusion scan, | | compatible with nonviable myocardium in these regions. I have personally reviewed the | | images and, if necessary, edited the report. I agree with the report as now presented. | |No significant tracer uptake within the nts-pj-fyufnr anterior wall/interventricular septum and apex corresponding to [...] Laboratory | + + + | | [employer] RADIOLOGY VOICE RECOGNITION | + + + [...] Note | + + | Service Account, [email or web address] In Interface - 10/13/2017 5:30 PM [...] | + + + | Blood | [facility] SERVICES, CORE [address] [facility] | | | [place] [address] | + + + + + | [...] Narrative | + + | Report ====== Scoop Filler: Rodríguez Fortune ([id number]), shubham lockhart Focuser: shubham | | richy Fellow: shubham lockhart Pump Tender: shubham lockhart Viewer: shubham | | richy Report Date: 16 Oct 2017, 09:22:25 [facility] Patient ------- Patient: | | RON MCKEON Acc #: [id number] | | Ethnicity: N Status: Final Report [...] Formula) | | Image Quality: Good Scanner Regional Safety Manager: [employer]Stream Scanner Model: amSTATZ | | Scanner Serial Number: [id number] Scanner Software Platform: 5.3.15.3.1.0 Staff: Rodríguez | | Tong Modality: MR Indication Name: routine Protocol Name: CMR W Flows WO Contrast | | Findings -------- Non-cardiac findings were reviewed by Dr. Curtis. This exam was | | terminated prematurely and is lmiited to mobile sales assistant images. There are bilateral pleural | | [...] - 10/16/2017 9:22 AM PST | | Report======Scoop Filler: Rodríguez Tong ([id number]), shubham Rodriguezalyst: shubham | | richyFellow: shubham Garciaechnician: shubham Johniewer: shubham | | [email or web address] Date: 16 Oct 2017, 09:22:25 PSTPatient-------Patient: RON MCKEON | | JMedical Record Number: [id number] ID: [id number] #: [id number]: [id number]: | | Final ReportReport Number: [id number]: MaleBirthdate: 1955 (61 yrs)Study Date: 05 | | Oct 2017Study Description: CMR with Flows with ContrastReferring Physician: KHURRAM | | HEITNERBlood Pressure: /Heart rate:Height (cm): 0Weight (kg): 89BMI (kg/m ): 0BSA | | (m ): 0 (Mosteller Formula)Image Quality: Solidcore [email or web address] Regional Safety Manager: [employer] | | Lucky Pai Model: GuidePal Serial Number: [id number] Software Platform: | | 5.3.15.3.1.0Staff: Rodríguez FortuneModality: MRIndication Name: routineProtocol Name: | | CMR W Flows WO ContrastFindings--------Non-cardiac findings were reviewed by | | Fusmoon.This exam was terminated prematurely and is lmiited to mobile sales assistant images.There are | | bilateral pleural effusions. [...] Formula) | |Image Quality: Good | |Scanner Regional Safety Manager: [employer]Stream | |Scanner Model: amSTATZ | |Scanner Serial Number: [id number] | |Scanner Software Platform: 5.3.15.3.1.0 | |Staff: Rodríguez Fortune | |Modality: MR | |Indication Name: routine | |Protocol Name: CMR W Flows WO Contrast | |Findings | |-------- | |Non-cardiac findings were reviewed by Dr. Curtis. | |This exam was terminated prematurely and is lmiited to mobile sales assistant images. | |There are bilateral pleural effusions. [...] | + + + | Sputum | [facility] [address] [place] [place], [place] | | | [address] | + + + + + | Narrative | + + | Culture Report: This culture has been discontinued. Gram Stain: Squamous | | epithelial cells in the specimen indicate the presence of significant oropharyngeal | | contamination. CRITICAL RESULTS Results called to and verified by: Vicki | | Amy at phone # [facility] on: 10/12/2017 8:10:02 AM PST by: [id number] | + + HEMOGLOBIN A1C, BLOOD (10/11/2017 [...] | + + + | Blood | [facility], [facility] IMM + COAG [address] [facility] | | | [place] [address] | + + + + + | Narrative | + + | Alternate forms of testing such as fructosamine should be considered for | | monitoring nursing home glycemic control in patients with: Increased red cell turnover, | | certain hemoglobinopathies (e.g., HbS, HbE, HbC and thalassemia syndromes), anemias, | | blood loss, chronic liver disease and hemochromatosis (artefactually low HbA1c); iron | | deficiency anemia (artefactually high HbA1c due to enhanced glycation of hemoglobin). | | Alternate forms of testing such as fructosamine should be considered for | | monitoring manager long term care glycemic control in patients with: Increased red [...] Laboratory | + + + | | [facility] [address] [place] [address] | | | [place] [address] | + + + + + | Narrative | + + | [facility] Adult Echocardiography Laboratory | | [address] [place], [place] [address] Ph: | | Pt Name: RON MCKEON Study | | Date/Time 10/11/2017 / 11:47:35 AM | | Most recent prior: 03/30/2017 Acc #: [id number] No. previous | | echos: 4 : 1955 61 years Heart Rate: 84 bpm | | Height: 69.0 in Blood Pressure: 115/68 mm/Hg | | Weight: 196.0 lb Gender: M | | BSA: 2.05 m2 Order ID: [id number] | | Packaging Specialist: Shahab Sutton [facility] Referring Provider: Kimmy Low Patient | | [...] use disorder who presents on transfer from [facility] for consideration of | | complex PCI [...] | Wall Scoring: Report electronically signed by: [id number] Khurram Bedoya MD | | (10/11/2017, 12:59:49 PM) Final (Updated) | + + + + | Procedure Note | + + | Interface, Ecg Results - 10/11/2017 1:00 PM [facility] | | [facility] Echocardiography Laboratory [address] [place] [address] | | [place], [place] [address] Pt Name: RON Chaudhary | | MIKE Study Date/Time 10/11/2017 / 11:47:35 AMMRN: [id number] Most | | recent prior: 03/30/2017Acc #: [id number] No. previous echos: 4DOB: | | 1955 61 years Heart Rate: 84 bpmHeight: 69.0 in Blood | | Pressure: 115/68 mm/HgWeight: 196.0 lb Gender: MBSA: | | 2.05 m2 Order ID: [id number] Packaging Specialist: Shahab Sutton RDCSReferring | | Provider: Kimmy [...] use disorder who presents on transfer from [facility] | | for consideration of complex PCI [...] Ao (prox) | | 3.70 cm 18.1 mm/j8Bfrgymyeya of chamber size and geometry is accomplished | | through the incorporation of linear, volumetric, and indexed values Wall Scoring: Report | | electronically signed by: [id number] Khurram Bedoya MD (10/11/2017, 12:59:49 PM) | [...] | | | |Report electronically signed by: [id number] Khurram Bedoya MD (10/11/2017, 12:59:49 | |PM) [...] | + + + | Blood | [facility] SERVICES, CORE [address] | | | [place] [address] | + + + + + | [...] | >60 | >60 mL/min | | SAO TOMEAN | | | + +---------+ + | EGFR NON | >60 | >60 mL/min | | -SAO TOMEAN | | | + +---------+ + | [...] | + + + | Blood | [facility], CORE [address] | | | [place] [address] | + + + + + | [...] | + + + | Blood | [facility], CORE [address] [facility] | | | [place] [address] | + + + + + | [...]
--- OUTSIDE RECORDS SUMMARY | ~2017-11-13 | XMS | Encounter Summary ---
Demographics + + + | Address | [address] | | | [place] [address] | + + + | Home Phone | | + + + | Preferred Language | Unknown | + + + | Marital Status | | + + + | Shinto Affiliation | NRP | + + + | Race | White | + + + | Ethnic Group | Not or | + + + Author + + + | Author | [facility] | + + + | Organization | [facility] | + + + | Address | Unknown | + + + | Phone | Unavailable | + + + Support + + + + + | Name | Relationship | Address | Phone | + + + + + | ANNA MCKEON | ECON | [address] | | | | | [place] [address] | | + + + + + Care Team Providers + +------+ + | Care Care Services Manager Name | Role | Phone | [...] Pharmacy | | | | | | [address] | | | | | | [facility] | | | | | | [place], [place] | | | | | | [address] | | | +--------+ + + + [...] + + + as of this encounter Functional Status + [...] | | | + + + + as of this encounter Plan of Treatment Not on fileas of this encounter Visit Diagnoses Not on filein this encounter"
--- OUTSIDE RECORDS SUMMARY | ~2017-11-13 | XMS | Encounter Summary ---
Demographics + + + | Address | [address] | | | [place] [address] | + + + | Home Phone | | + + + | Preferred Language | Unknown | + + + | Marital Status | | + + + | Buddhism Affiliation | NRP | + + + | Race | White | + + + | Ethnic Group | Not or | + + + Author + + + | Author | [facility] | + + + | Organization | [facility] | + + + | Address | Unknown | + + + | Phone | Unavailable | + + + Support + + + + + | Name | Relationship | Address | Phone | + + + + + | ANNA MCKEON | ECON | [address] | | | | | [place] [address] | | + + + + + Care Team Providers + +------+ + | Care Environmental Sampler Name | Role | Phone | + [...] Pharmacy | | | | | | [address] | | | | | | [facility] | | | | | | [place], [place] | | | | | | [address] | | | +--------+ + + + [...]
--- OUTSIDE RECORDS SUMMARY | ~2017-11-13 | XMS | Encounter Summary ---
Demographics + + + | Address | [address] | | | [place] [address] | + + + | Home Phone | | + + + | Preferred Language | Unknown | + + + | Marital Status | | + + + | Hindu Affiliation | NRP | + + + | Race | White | + + + | Ethnic Group | Not or | + + + Author + + + | Author | [facility] | + + + | Organization | [facility] | + + + | Address | Unknown | + + + | Phone | Unavailable | + + + Support + + + + + | Name | Relationship | Address | Phone | + + + + + | ANNA MCKEON | ECON | [address] | | | | | [place] [address] | | + + + + + Care Team Providers + +------+ + | Care Preschool Special Education Teacher Name | Role | Phone | + +------+ + | Chato Mtason MD | PCP | | + +------+ [...] | Diagnostic Imaging | | | | 2018 | Encounter | Services at [facility] | | | | | | [address] [facility] | | | | | | [facility] | | | | | | Mailcode: [address] | | | | | | [facility] | | | | | | [place], [place] | | | | | | [address] | | | | | | [phone] | | | +--------+ + + + [...] +---------+---------+ + + as of this encounter Plan of Treatment Not on fileas of this encounter Visit Diagnoses Not on filein this encounter"
--- OUTSIDE RECORDS SUMMARY | ~2017-11-13 | XMS | Encounter Summary ---
Demographics + + + | Address | [address] | | | [place] [address] | + + + | Home Phone | | + + + | Preferred Language | Unknown | + + + | Marital Status | | + + + | Quaker Affiliation | NRP | + + + | Race | White | + + + | Ethnic Group | Not or | + + + Author + + + | Author | [facility] | + + + | Organization | [facility] | + + + | Address | Unknown | + + + | Phone | Unavailable | + + + Support + + + + + | Name | Relationship | Address | Phone | + + + + + | ANNA MCKEON | ECON | [address] | | | | | [place] [address] | | + + + + + Care Team Providers + +------+ + | Care Relationship Counselor Name | Role | Phone | [...] | 2018 | Encounter | Services at [facility] | | | | | | [address] [facility] | | | | | | [facility] | | | | | | Mailcode: [address] | | | | | | [facility] | | | | | | [place], [place] | | | | | | [address] | | | | | | [phone] | | | +--------+ + + + [...]
--- OUTSIDE RECORDS SUMMARY | ~2017-11-13 | XMS | Encounter Summary ---
Demographics + + + | Address | [address] | | | [place] [address] | + + + | Home Phone | | + + + | Preferred Language | Unknown | + + + | Marital Status | | + + + | Orthodox Affiliation | NRP | + + + | Race | White | + + + | Ethnic Group | Not or | + + + Author + + + | Author | [facility] | + + + | Organization | [facility] | + + + | Address | Unknown | + + + | Phone | Unavailable | + + + Support + + + + + | Name | Relationship | Address | Phone | + + + + + | VENICE MCKEON | ECON | [address] | | | | | [place] [address] | | + + + + + Care Team Providers + +------+ + | Care Silo Operator Name | Role | Phone | [...] + | 10/16/ | Anesthesia | Cardiac Structural Steel Equipment Erector | Terry Garvin, | | | 2018 | | at [facility] [address] [facility] | [facility] [address] [facility] | | | | | [facility] | [facility] | | | | | [facility] | [place], [place] | | | | | [place], [place] | [address] | | | | | [address] | [phone] | | | | | [phone] | | | +--------+ + + + [...] /0 | 0 | | reviewed, JAYDON held, anesthetic plan made or approved by [...] | + + + + + | No agents on file. | + + + + | No blood administrations on file. | + + +--------+ + + + | Type | Details | Placement | Removal | +--------+ + + + | Wound | Left; elbow; (Incision) | 03/18/171835 by | | +--------+ + + + | Wound | 03/19/17; 1999; No; Left; heel; | 03/19/171999 by | | | | Rush | Venice Webb RN | | +--------+ + + + | Wound | 10/10/17; 2107; Yes; Right; | 10/10/172107 by | | | | maría; (from catheterization); | Reagan Daniels, | | | | (groin access for pathology laboratory aides teacher) | RN | | +--------+ + + + | Periph | 10/15/17; 1115; BARRIE PAUL, | 10/15/17 1115 by | | | eral | RT [...] | Keeley Izaguirre, | Keeley Izaguirre, | Arina mendez | 10/16/17; 1208; Per protocol | RN | RN | | Single | | | | | Lumen | | | | +--------+ + + + in this encounter Social History + + [...] encounter Visit Diagnoses Not on filein this encounter Administered Medications + +--------+ +---------+------+------+ | Medication Order | MAR | Action | Dose | Rate | Site | | | Action | Date | | | | + +--------+ +---------+------+------+ | alfentanil (ALFENTA) injection | Given | 10/16/2017 | 200 mcg | | | | INTRAPROCEDURE PRN, Starting Fri | | 16:05 | | | | | 10/16/17 at 1113, Until 2/9/18 | | PST | | | | | at 1732 | | | | | | + +--------+ +---------+------+------+ +-------+ +---------+---+---+ | Given | 10/16/2017 | 200 mcg | | | | | 16:16 | | | | | | PST | | | | +-------+ +---------+---+---+ | Given | 10/16/2017 | 100 mcg | | | | | 16:29 | | | | | | PST | | | | +-------+ +---------+---+---+ +---+---+ | | | +---+---+ + +-------+ + +---+---+ | ceFAZolin (ANCEF) injection | Given | 10/16/2017 | 2,000 mg | | | | INTRAPROCEDURE PRN, Starting Fri | | 12:45 | | | | | 10/16/17 at 1245, Until 10/16/17 | | PST | | | | | at 1732 | | | | | | + +-------+ + +---+---+ +-------+ + +---+---+ | Given | 10/16/2017 | 2,000 mg | | | | | 16:43 | | | | | | PST | | | | +-------+ + +---+---+ +---+---+ | | | +---+---+ + + + + +--------+---+ | dexmedetomidine (PRECEDEX) IV | Rate/Dos | 10/16/2017 | 0.6 | 13.11 | | | infusion INTRAPROCEDURE | e Change | 14:15 | mcg/kg/h | mL/hr | | | CONTINUOUS PRN, Starting Fri | | PST | r | | | | 10/16/17 at 1100, Until 10/16/17 | | | | | | | at 1732 | | | | | | + + + + +--------+---+ + + + +-------+---+ | Rate/Dose Change | 10/16/2017 | 0.2 | 4.37 | | | | 14:51 | mcg/kg/h | mL/hr | | | | PST | r | | | + + + +-------+---+ | Rate/Dose Change | 10/16/2017 | 0.1 | 2.19 | | | | 15:28 | mcg/kg/h | mL/hr | | | | PST | r | | | + + + +-------+---+ +---+---+ | | | +---+---+ + +-------+ +-------+---+---+ | EPINEPHrine (ADRENALIN) | Given | 10/16/2017 | 5 mcg | | | | injection INTRAPROCEDURE PRN, | | 13:46 | | | | | Starting Thu10/16/17 at 1118, | | PST | | | | | Until Thu10/16/17 at 1732 | | | | | | + +-------+ +-------+---+---+ +-------+ +--------+---+---+ | Given | 10/16/2017 | 5 mcg | | | | | 14:57 | | | | | | PST | | | | +-------+ +--------+---+---+ | Given | 10/16/2017 | 10 mcg | | | | | 16:34 | | | | | | PST | | | | +-------+ +--------+---+---+ +---+---+ | | | +---+---+ + +-------+ +-------+---+---+ | lidocaine (XYLOCAINE MPF) 2 % | Given | 10/16/2017 | 60 mg | | | | (20 mg/mL) injection | | 11:13 | | | | | INTRAPROCEDURE PRN, Starting Fri | | PST | | | | | 10/16/17 at 1113, Until 10/16/17 | | | | | | | at 1732 | | | | | | + +-------+ +-------+---+---+ +---+---+ | | | +---+---+ + +-------+ +------+---+---+ | midazolam (VERSED) injection | Given | 10/16/2017 | 1 mg | | | | INTRAPROCEDURE PRN, Starting Fri | | 11:12 | | | | | 10/16/17 at 1112, Until 10/16/17 | | PST | | | | | at 1732 | | | | | | + +-------+ +------+---+---+ +-------+ +--------+---+---+ | Given | 10/16/2017 | 0.5 mg | | | | | 14:14 | | | | | | PST | | | | +-------+ +--------+---+---+ | Given | 10/16/2017 | 0.5 mg | | | | | 14:55 | | | | | | PST | | | | +-------+ +--------+---+---+ +---+---+ | | | +---+---+ + +-------+ +---------+---+---+ | PHENYLEPHrine 100 mcg/mL IV | Given | 10/16/2017 | 100 mcg | | | | syringe INTRAPROCEDURE PRN, | | 11:46 | | | | | Starting 10/16/17 at 1137, | | PST | | | | | Until 10/16/17 at 1732 | | | | | | + +-------+ +---------+---+---+ +-------+ +---------+---+---+ | Given | 10/16/2017 | 100 mcg | | | | | 11:52 | | | | | | PST | | | | +-------+ +---------+---+---+ | Given | 10/16/2017 | 100 mcg | | | | | 16:32 | | | | | | PST | | | | +-------+ +---------+---+---+ +---+---+ | | | +---+---+ + + + + +-------+---+ | propofol (DIPRIVAN) injection | Restarte | 10/16/2017 | 5 | 2.62 | | | INTRAPROCEDURE CONTINUOUS PRN, | d | 14:56 | mcg/kg/m | mL/hr | | | Starting Thu10/16/17 at 1106, | | PST | in | | | | Until Thu10/16/17 at 1732 | | | | | | + + + + +-------+---+ + + + +--------+---+ | Rate/Dose Change | 10/16/2017 | 10 | 5.24 | | | | 15:28 | mcg/kg/m | mL/hr | | | | PST | in | | | + + + +--------+---+ | Rate/Dose Change | 10/16/2017 | 25 | 13.11 | | | | 16:16 | mcg/kg/m | mL/hr | | | | PST | in | | | + + + +--------+---+ +---+---+ | | | +---+---+ + +-------+ +-------+---+---+ | propofol INTRAPROCEDURE PRN, | Given | 10/16/2017 | 20 mg | | | | Starting Thu10/16/17 at 1629, | | 16:29 | | | | | Until Thu10/16/17 at 1732 | | PST | | | | + +-------+ +-------+---+---+ +-------+ +-------+---+---+ | Given | 10/16/2017 | 20 mg | | | | | 16:34 | | | | | | PST | | | | +-------+ +-------+---+---+ +---+---+ | | | +---+---+ + + + +---+---+---+ | sodium chloride 0.9% IV | given by | 10/16/2017 | | | | | infusion INTRAPROCEDURE | | 13:03 | | | | | CONTINUOUS PRN, Starting Fri | anesthes | PST | | | | | 10/16/17 at 1043, Until 10/16/17 | iology | | | | | | at 1732 | | | | | | + + + +---+---+---+ + + +---+---+---+ | given by anesthesiology | 10/16/2017 | | | | | | 14:51 | | | | | | PST | | | | + + +---+---+---+ | given by anesthesiology | 10/16/2017 | | | | | | 17:04 | | | | | | PST | | | | + + +---+---+---+ +---+---+ | | | +---+---+ in this encounter"
--- OUTSIDE RECORDS SUMMARY | ~2017-11-13 | XMS | Encounter Summary ---
Demographics + + + | Address | [address] | | | [place] [address] | + + + | Home Phone | | + + + | Preferred Language | Unknown | + + + | Marital Status | | + + + | Christian Affiliation | NRP | + + + | Race | White | + + + | Ethnic Group | Not or | + + + Author + + + | Author | [facility] | + + + | Organization | [facility] | + + + | Address | Unknown | + + + | Phone | Unavailable | + + + Support + + + + + | Name | Relationship | Address | Phone | + + + + + | ANNA MCKEON | ECON | [address] | | | | | [place] [address] | | + + + + + Care Team Providers + +------+ + | Care Clinical Systems Analyst Name | Role | Phone | + +------+ + | Chato Matson MD | PCP | | + +------+ + Encounter Details +--------+ + + + + | Date | Type | Department | Care Team | Description | +--------+ + + + + | 10/11/ | Procedure | [facility] [address] | | | | [address] | [address] | [address] | | | | | | [address] [facility] | | | | | | [place], [place] | | | | | | [address] | | | | | | [phone] | | | +--------+ + + + [...]
--- OUTSIDE RECORDS SUMMARY | ~2017-11-13 | XMS | Encounter Summary ---
Demographics + + + | Address | [address] | | | [place] [address] | + + + | Home Phone | | + + + | Preferred Language | Unknown | + + + | Marital Status | | + + + | Pentecostalism Affiliation | NRP | + + + [...] | | | | | [place] [address] | | + + + + + Care Team Providers + +------+ + | Care Anesthetist Name | Role | Phone | + [...] + | 10/16/ | Anesthesia | Cardiac Film Washer | Terry Garvin, | | | 2018 | | at [facility] [address] [facility] | [facility] [address] [facility] | | | | | [facility] | [facility] | | | | | [facility] | [place], [place] | | | | | [place], [place] | [address] | | | | | [address] | [phone] | | | | | [phone] | | | +--------+ + + + [...] | | | | (groin access for catheterization laboratory technician) | RN | | +--------+ + + [...]
--- OUTSIDE RECORDS SUMMARY | ~2017-11-13 | XMS | Encounter Summary ---
Demographics + + + | Address | [address] | | | [place] [address] | + + + | Home Phone [...] Author + + + | Author | [facility] | + + + | Organization | [facility] | + + + | Address | Unknown | + + + | Phone | Unavailable | + + + Support + + + + + | Name | Relationship | Address | Phone | + + + + + | VENICE MCKEON | ECON | [address] | | | | | [place] [address] | | + + + + + Care Team Providers + +------+ + | Care Biological Lab Technician Name | Role | Phone | [...] + | 10/16/ | Anesthesia | Cardiac Wood Stainer | Terry Garvin, | | | 2018 | | at [facility] [address] [facility] | [facility] [address] [facility] | | | | | [facility] | [facility] | | | | | [facility] | [place], [place] | | | | | [place], [place] | [address] | | | | | [address] | [phone] | | | | | [phone] | | | +--------+ + + + [...] | | | | (groin access for medical laboratory manager) | RN | | +--------+ + + [...]
--- OUTSIDE RECORDS SUMMARY | ~2017-11-13 | XMS | Encounter Summary ---
Demographics + + + | Address | [address] | | | [place] [address] | + + + | Home Phone | | + + + | Preferred Language | Unknown | + + + | Marital Status | | + + + | Congregational Affiliation | NRP | + + + | Race | White | + + + | Ethnic Group | Not or | + + + Author + + + | Author | [facility] | + + + | Organization | [facility] | + + + | Address | Unknown | + + + | Phone | Unavailable | + + + Support + + + + + | Name | Relationship | Address | Phone | + + + + + | ANNA MCKEON | ECON | [address] | | | | | [place] [address] | | + + + + + Care Team Providers + +------+ + | Care Dining Services Manager Name | Role | Phone [...] | | | | | (HCC) | [place], [place] | for Health | | | | | Stenosis of | [address] | and Healing | | | | | coronary | Phone: | [place], [place] | | | | | artery | [phone] | [address] | | | | | stent, | Fax: | Phone: | | | | | initial | [phone] | [phone] | | | | | encounter | | Fax: | | | | | Procedures | | [phone] | | | | | CONSULT TO [...] + + | 10/10/ | Hospital | [address] | Khurram Bedoya | | | 2018 - | Encounter | [address] | MD [address] | | | | | [address] [place] [address] | [address] | | | 10/17/ | | [place], [place] | [place] | | | 2018 | | [address] | [address] | | | | | [phone] | [phone] | | | | | | | [...] Referring Physician & Institution: Other Dictation Primary/Outpatient Life Skills Instructor: Dr Jamal Guerrero MD Inpatient Attending Physician: Khurram Bedoya MD Author/Discharging Provider: LALA SCHOFIELD PA-C Admission Date: 10/10/2017 Discharge Date: 10/17/2017 Active Hospital Problems 1) *NSTEMI (non-ST elevated myocardial infarction) (HCC) 2) Coronary 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 3) Stenosis of coronary artery stent 4) Ischemic cardiomyopathy 5) Chronic systolic congestive heart failure (HCC) 7) Encounter for insertion of cardiac resynchronization therapy defibrillator (CPC-D) 8) Paroxysmal atrial flutter (HCC) 9) Influenza, [...] 1) EP study with VT induction 2) CPC-D implantation Reason For Admission: Consideration of complex PCI vs CABG for in-stent restenosis of LCx and LM/LAD stents Hospital Course: Please see H&P for hospital course at [facility] prior to transfer to [facility]. Ron Mckeon is a 61 year [...] treatment who was admitted in transfer from [facility] on 10/11 for consideration of PCI vs [...] support--had one 3.0 x [address] [address] ug-eluting stent placed in ostial L [...] 10/16. VT was induced, therefor e a CPC-D was implanted. He is discharging home in good condition with follow up in 1 week w ith his Life Skills Instructor. The following problems were addressed this hospitalization: [...] uenza and underwent a coronary angiogram at [facility] which revealed in stent re-stenosis of both LM into LAD and LCx stents, mild disease of RCA. Transferred to [facility] for further onel luation. CTS was consulted for consideration of CABG vs complex PCI. Due to nonviable myocardium archie wn on cardiac PET and resting NM perfusion study, PCI was chosen over CABG. On 10/15 he underw ent angiography/PCI with impella support--had one 3.0 x 18 mm Resolute [place] drug-eluting chery nt placed in ostial L [...] II, Stage C. Etiology ischemic. TTE at [facility] showed EF 30-35%, mildly reduced RV [...] the past --ICD: placed by EP 10/16, CPC-D -- will need 1 week f/u for wound check, then 1 month device check with EP -- f/u with outpatient director medical affairs 2-4 weeks # Paroxysmal Aflutter Noted Aflutter with RVR at admission in [facility]; treated with amiodarone infusion. He w as transitioned to oral amiodarone and maintained normal rhythm. Given that the aflutter occ urred in setting of severe sepsis, will not continue amiodarone or warfarin. If he has recur rent arrhythmia, this will be noted on CPC-D and could consider anticoagulation at that time . However, he requires DAPT and has a possible history of recent GIB, so triple therapy shou ld be avoided if not necessary --rate control: metoprolol as above --anticoagulation: holding warfarin for now given DAPT and h/o GI B. Discuss further with outpatient director medical affairs. May consider holding anticoagulation unless he demonstrates recurrent arrhythmia # Influenza type A - resolved # Community acquired pneumonia # Severe sepsis with shock, resolved Pt presented to [facility] 10/03 found to be Flu Apositive with [...] sepsis management , fluid resuscitation. EGD at [facility] on 10/05 showed gastritis, duodenitis, linear ulcerations [...] first post-hospitalization visit: 1. Wound check from CPC-D placement 2. Consider restarting lisinopril if BPs improve and Cr is stable 3. Instructed pt to restart metformin on 08/18 but reevaluate based on Cr Schedule the following appointment(s) when you get home KULWINDER Stevens. Go on 10/19/2017. Why: at 1:15pm for heart failure follow up, to re-check labwork, and to have your wound ch ecked Contact information HEART [address] [address] KULWINDER Stevens. Go on 11/11/2017. Why: at 9:30am for cardiology follow up and to have your device checked Contact information HEART [address] [address] Medication List START taking these medications Childrens [...] Resume on 10/19. Indications: type 2 diabetes [facility] metoprolol succinate 25 mg Tb24 Commonly known [...] 0%. 8.Stent: 3.0 x 18 mm Resolute [place] drug-eluting stent. Lesion #2: 1.Lesion location: Distal [...] circumflex. One 3.0 x 18 mm Resolute [place] drug-eluting stent. Successful percutaneous coronary transluminal angiop [...] ths. You should be cleared by your director medical affairs prior to returning to driving. If you [...] How to Contact us: Cardiology Division Office [phone] Cardiology Patient Phone Line EDUIN [address] Dr[address] Dr., Dr., PA-C Connie Barber, NP Karen Paladino, RN Margaret Kleist, RN Evenings or weekends: Ask for on-call director medical affairs Drug Eluting Stent 1. Please take Plavix (clopidogrel) everyday which helps to keep the stent open. You need t o take it every day for one year and do not stop unless you are told to by your director medical affairs . 2. Take an aspirin 81 mg once daily indefinitely. 3. You were referred for cardiac rehab and should start now that you have had a stent place d. 4. Follow up with your director medical affairs within 2-4 weeks. 5. No elective surgeries [...] smoker.Patient counseled on importance of smoking cessation [facility] Last vitals: BP: 101/65 (10/17/17 1144) Pulse: 80 (10/17/17 1144) Resp: 18 ( 1144) Weight: 88.4 kg (194 lb 14.2 oz) (10/17/17 0221) Discharging Provider: LALA SCHOFIELD PA-C, Cardiovascular Medicine Attending Physician: Khurram Bedoya MD, Cardiovascular Medicine Lala Schofield PA-C Instructor of Cardiovascular Medicine [facility] [place] [facility] [employer] [place] I spent 36 minutes in coordination of care and yqbu-md-wlhh with the patient and/or their s urrogate in which the problems above were discussed Associated attestation - Khurram Bedoya MD - 10/17/2017 3:22 PM PSTCardiology [facility] I have seen and examined Mr. Mckeon and discussed the patient's management with the [facility] practitioner. I reviewed the practitioner's note above and agree with the documented f indings and plan of care. KHURRAM BEDOYA MD Director of the [facility] Hypertrophic Cardiomyopathy Drop Worker of Echocardiography Acetone Button Pasterteacher hearing impaired Division of Cardiovascular Medicine in this encounter Discharge Instructions The following attachments cannot be sent through Care Everywhere.WOUND CHECK (TAIWANESE)ICD ( IMPLANTABLE CARDIOVERTER-DEFIBRILLATOR): POST-OP (TAIWANESE)PAIN POST-SURGERY: ACUTE (TAIWANESE) OPIOIDS: SAFE USE (TAIWANESE)OPIOIDS: STORAGE AND DISPOSAL: GENERAL INFO (TAIWANESE)in this enco unter Medications at Time of [...] Information: Implant date: 10/16/17 BiV-ICD pulse generator: Party Supply Specialist: [employer] Model number: [id number] Serial number: [id number] RA lead: Party Supply Specialist: Medtronic Model number: [id number] Serial number: [id number] RV lead: Party Supply Specialist: Medtronic Model number: [id number] Serial number: [id number] CS lead: Party Supply Specialist: Medtronic Model number: [id number] Serial number: [id number] ICD PROGRAMMING: Bradycardia Parameters: Mode: DDD Lower rate limit: 50 Upper rate limit: 130 Output (A): 3.5 V at 0.4 ms Sensitivity (A): 0.3 mV Output (RV): 3.5 V at 0.4 ms Sensitivity (RV): 0.3 mV Output (CS): 2.0 V at 0.4ms Tachycardia Parameters: VT zone: 177-200 Therapies: Monitor VF zone: >200 bpm Therapies: 35 J x 6 PACING PERCENTAGE: AP: <0.1% SOLAR ELECTRIC INSTALLER: 98.3% EPISODES SINCE IMPLANT: none. TODAY'S TESTING [...] and Device check in one month at [facility] device clinic. I have reque sted [...] MD Electrophysiology Fellow Division of Cardiovascular Medicine [facility] Pager [phone] Associated attestation - Lauro Jorgensen MD - 10/18/2017 12:04 PM PSTElectrophysiolog y Attending I have seen and examined Mr. Mckeon and discussed the patient's management with the resi dent and/or fellow. I reviewed the housestaff note above and agree with the documented find ings and plan of care. He is doing well. For regular device follow up. Lauro Jorgensen M.D. Director, Electrophysiology [employer] Artistic Directordeputy sheriff [facility] [place] [phone] Amarilis Castle MD - 10/17/2017 10:53 AM [...] hs. You should be cleared by your director medical affairs prior to returning to driving. ? If [...] through the full body scanner at the [facility] or, but only after 6 weeks post [...] How to Contact us: Cardiology Division Office [phone] Cardiology Patient Phone Line EDUIN [address] [...] 1) EP study with VT induction 2) CPC-D Indication for the procedure: Ischemic cardiomyopathy with [...] MD Electrophysiology Fellow Division of Cardiovascular Medicine [facility] Pager [phone] Lala Schofield PA-C - 10/16/2017 2:07 PM PSTFormatting of this note may be different fro m the original. IP Cardiology Progress Note Date: 10/16/2017 Hospital Day: 6 Attending Life Skills Instructor: Khurram Bedoya MD Provider: LALA SCHOFIELD PA-C Primary Care Provider: Chato Matson MD Outpatient Life Skills Instructor: Dr Jamal Guerrero MD ID:Ron Mckeon is a 61 year old male with past medical history of CAD s/p anterior [place] 03/2017 with cardiogenic shock s/p PCI with ANY to LM/LAD and LCx with ECMO support, systo lic heart failure (EF 20-25%), ischemic cardiomyopathy, hypertension, Atrial flutter, prior tobacco use, recent JAVON thrombus on anticoagulation, Influenza A with septic shock (10/03) re quiring intubation and mechanical ventilation, HAP on treatment who was admitted in transfer from [facility] on 10/11 for consideration of PCI vs [...] cannot appreciate murmur and sounds regular. J SOLAR ELECTRIC INSTALLER not above clavicle at 90 degrees Gastrointestinal: [...] found for: FREET4, TSH, TPOAB, THYROGLOB, THYROGLOBAB, [id number] Lab Results Component Value Date A1C 5.9 [...] 8. Stent: 3.0 x 18 mm Resolute [place] drug-eluting stent. Lesion #2: 1. Lesion location: [...] uenza and underwent a coronary angiogram at [facility] which revealed in stent re-stenosis of both LM into LAD and LCx stents, mild disease of RCA. Transferred to [facility] for further onel luation. CTS was consulted for consideration of CABG vs complex PCI. Due to nonviable myocardium archie wn on cardiac PET and resting NM perfusion study, PCI was chosen over CABG. On 10/15 he underw ent angiography/PCI with impella support--had one 3.0 x 18 mm Resolute [place] drug-eluting chery nt placed in ostial L [...] II-III, Stage C. Etiology ischemic. TTE at [facility] showed EF 30-35%, mildly reduced RV [...] check with EP -- f/u with outpatient director medical affairs 2-4 weeks # Paroxysmal Aflutter Noted Aflutter with RVR at admission in [facility]; treated with amiodarone infusion. Now maintaining SR on oral amio. CHADS-VASC 3, HAS-BLED 3. Was previously on heparin infusion fo r NSTEMI but this has been stopped and AC was not started in anticipation of PCI. --rate control: carvedilol as above --rhythm control: continue amiodarone 200 mg daily for now, to be reassessed b y outpatient director medical affairs --anticoagulation: holding warfarin for now given DAPT and h/o GIB. Discuss fu rther with outpatient director medical affairs. May consider holding anticoagulation unless he demonstra janeth recurrent arrhythmia # Influenza type A - resolved # Community acquired pneumonia # Severe sepsis with shock, resolved Pt presented to [facility] 10/03 found to be Flu A positive [...] sepsis management , fluid resuscitation. EGD at [facility] on 10/05 showed gastritis, duodenitis, linear ulcerations [...] patient was interviewed and examined by attending director medical affairs, Dr. Khurram Bedoya MD , who is in agreement with above described findings, assessment and plan. LALA SCHOFIELD PA-C Cardiovascular Medicine [facility] Pager [phone] I spent 36 minutes in coordination of care and odst-qa-exvy with the patient and/or their surrogate in [...] Continue current post-cath car tom SUERO MD [facility] [address] [place] [phone] Ruth Ann Carvajal PA-C - 10/15/2017 3:36 [...] circumflex. One 3.0 x 18 mm Resolute [place] drug-eluting stent. Successful percutaneous coronary transluminal angiopla [...] circ and LAD. EPS v-stim with possible CPC-D tomorrow (QRS today is 152 atypical LB BB). See yesterdays attestation Sophie Darby MD Cardiovascular Medicine - Electrophysiology [facility] [place] at [facility] Arya Low MD - 10/15/2017 1:05 PM PSTCARDIOLOGY PRELIMINARY PROCEDURE NOTE Primary Care Provider: Chato Matson MD Referring Provider: Other Dictation Lithoplate Maker Staff: Tejal Modi M.D. Procedure(s): 1. Coronary angiography 2. Percutaneous coronary intervention 3. Left heart catheterization 4. Impella placement and removal 5. Moderate conscious sedation Indications: Unstable angina, planned LM intervention Access: 14-Belarusian RFA 6-Belarusian RFV 7-Belarusian LFA Post Procedure Access: No evidence of [...] Note Date: 10/15/2017 Hospital Day: 5 Attending Life Skills Instructor: Khurram Bedoya MD Provider: LALA SCHOFIELD PA-C Primary Care Provider: Chato Matson MD Outpatient Life Skills Instructor: Dr Jamal Guerrero MD ID:Ron Mckeon is a 61 year old male with past medical history of CAD s/p anterior [place]ERY [place] 03/2017 with cardiogenic shock s/p PCI with ANY to LM/LAD and LCx with ECMO support, systo lic heart failure (EF 20-25%), ischemic cardiomyopathy, hypertension, Atrial flutter, prior tobacco use, recent JAVON thrombus on anticoagulation, Influenza A with septic shock (10/03) re quiring intubation and mechanical ventilation, HAP on treatment who was admitted in transfer from [facility] on 10/11 for consideration of PCI vs [...] cannot appreciate murmur and sounds regular. J SOLAR ELECTRIC INSTALLER not above clavicle at 90 degrees Gastrointestinal: [...] found for: FREET4, TSH, TPOAB, THYROGLOB, THYROGLOBAB, [id number] Lab Results Component Value Date A1C 5.9 [...] uenza and underwent a coronary angiogram at [facility] which revealed in stent re-stenosis of both LM into LAD and LCx stents, mild disease of RCA. Transferred to [facility] for further onel luation. CTS was consulted for consideration of CABG vs complex PCI. Due to nonviable myocardium archie wn on cardiac PET and resting NM perfusion study, he will proceed with PCI tomorrow with Imp tania support. -- to blender laborer today for PCI with impella support [...] II-III, Stage C. Etiology ischemic. TTE at [facility] showed EF 30-35%, mildly reduced RV [...] Noted Aflutter with RVR at admission in [facility]; treated with amiodarone infusion. Now maintaining SR [...] sepsis with shock, resolved Pt presented to [facility] 10/03 found to be Flu A positive [...] sepsis management , fluid resuscitation. EGD at [facility] on 10/05 showed gastritis, duodenitis, linear ulcerations [...] patient was interviewed and examined by attending director medical affairs, Dr. Khurram Bedoya MD , who is in agreement with above described findings, assessment and plan. LALA SCHOFIELD PA-C Cardiovascular Medicine [facility] Pager [phone] I spent 38 minutes in coordination of care and agln-xm-vxcl with the patient and/or their surrogate in which the following was discussed: plan for PCI with impella support today, hea rt failure, anticoagulation for aflutter, discharge planning Associated attestation - Khurram Bedoya MD - 10/15/2017 1:15 PM PSTCardiology Attendi I have seen and examined Mr. Mckeon and discussed the patient's management with the [facility] practitioner. I reviewed the practitioner's note above and agree with the documented f indings and plan of care. KHURRAM BEDOYA MD Director of the [facility] Hypertrophic Cardiomyopathy Drop Worker of Echocardiography Acetone Button Pasterteacher hearing impaired Division of Cardiovascular Medicine Ruth Ann Carvajal [...] thickening is segmentally abnormal. 10/03/17: TTE @ [facility] Summary The number of aortic [...] remain. 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 Given NSVT and EF 30-35%, we will therefore proceed to an EP study with implantation o f an ICD if she has inducible VT. Given atypical LBBB QRS 147 and current functional status 3 (prior 1-2 by report) and concern for lack of EF recovery, we would plan for CPC with His- bundle lead if needed. Sophie Darby MD Cardiovascular Medicine - Electrophysiology [facility] [place] at [facility] Lala Schofield PA-C - 10/14/2017 11:58 AM PSTFormatting of this note may be different fro m the original. IP Cardiology Progress Note Date: 10/14/2017 Hospital Day: 4 Attending Life Skills Instructor: Khurram Bedoya MD Provider: LALA SCHOFIELD PA-C Primary Care Provider: Chato Matson MD Outpatient Life Skills Instructor: Dr Jamal Guerrero MD ID:Ron Mckeon is a 61 year old male with past medical history of CAD s/p anterior [place]ERY [place] 03/2017 with cardiogenic shock s/p PCI with ANY to LM/LAD and LCx with ECMO support, systo lic heart failure (EF 20-25%), ischemic cardiomyopathy, hypertension, Atrial flutter, prior tobacco use, recent JAVON thrombus on anticoagulation, Influenza A with septic shock (10/03) re quiring intubation and mechanical ventilation, HAP on treatment who was admitted in transfer from [facility] on 10/11 for consideration of PCI vs [...] Very t hankful of care provided at [facility] Current Inpatient Medications: acetaminophen (TYLENOL) tablet [...] found for: FREET4, TSH, TPOAB, THYROGLOB, THYROGLOBAB, [id number] Lab Results Component Value Date A1C 5.9 [...] uenza and underwent a coronary angiogram at [facility] which revealed in stent re-stenosis of both LM into LAD and LCx stents, mild disease of RCA. Transferred to [facility] for further onel luation. CTS was [...] II-III, Stage C. Etiology ischemic. TTE at [facility] showed EF 30-35%, mildly reduced RV [...] Noted Aflutter with RVR at admission in [facility]; treated with amiodarone infusion. Now maintaining SR [...] sepsis with shock, resolved Pt presented to [facility] 10/03 found to be Flu A positive [...] sepsis management , fluid resuscitation. EGD at [facility] on 10/05 showed gastritis, duodenitis, linear ulcerations [...] patient was interviewed and examined by attending director medical affairs, Dr. Khurram Bedoya MD , who is in agreement with above described findings, assessment and plan. LALA SCHOFIELD PA-C Cardiovascular Medicine [facility] Pager [phone] I spent 42 minutes in coordination of care and whhf-zp-uitm with the patient and/or their s urrogate in which the following was discussed: results of nuc med and PET scan studies indic ating no viable myocardium and thus will plan for complex PCI tomorrow Associated attestation - Khurram Bedoya MD - 10/14/2017 9:29 PM PSTCardiology Attendi I have seen and examined Mr. Mckeon and discussed the patient's management with the [facility] practitioner. I reviewed the practitioner's note above and agree with the documented f indings and plan of care. KHURRAM BEDOYA MD Director of the [facility] Hypertrophic Cardiomyopathy Drop Worker of Echocardiography Acetone Button Pasterteacher hearing impaired Division of Cardiovascular Medicine Ashleigh Alvarez ACNP - 10/13/2017 8:33 AM PSTFormatting of this note may be differ ent from the original. Cardiology Inpatient Progress Note Date: 10/13/2017 Hospital Day: 3 Primary Care Physician: Chato Matson MD Outpatient Life Skills Instructor: Dr Jamal Guerrero MD Attending Life Skills Instructor: Khurram Bedoya MD Provider: Ashleigh Alvarez [employer] ID: Ron Mckeon is a 61 year [...] who was admitted in transfe r from [facility] on 10/11 for consideration of PCI vs [...] found for: FREET4, TSH, TPOAB, THYROGLOB, THYROGLOBAB, [id number] Lab Results Component Value Date A1C 5.9 [...] exam dated, 03/30/2017, the LVEF is similar. [facility] CXR 10/11/17: FINDINGS: The increased lung [...] of the duodenum. - No specimens collected. [facility] and selective coronary angiography 10/04/17 summary (full report in CareEverywhere): 1.Systemic hypotension, upper normal left ventricular end-diastolic pressure 2.Severe in-stent stenosis of left main to ostial LAD stent 3.Severe in-stent stenosis ostial proximal left circumflex stent 4.Mild to moderate RCA disease 5.ANNA grade 1 flow to distal LAD 10/03/17 Echo at [place]: The number of aortic valve leaflets cannot [...] stents # NSTEMI Pt was admitted to [facility] 10/03 with hypoxemic respiratory failure, severe sepsis and s hock thought to be due to influenza type A as below. Noted to have new LBBB, NSTEMI with pea k trop 26. Underwent coronary angiogram at [facility] 10/04 which revealed in stent re-steno sis of both LM into LAD and LCx stents, mild disease of RCA. Transferred to [facility] for further evaluation. TTE showed LV [...] II-III, Stage C. Etiology ischemic. TTE at [facility] showed EF 30-35%, mildly reduced RV function, mild dilation of ascending aorta. LVEDP 14 mm hg during catheterization 10/04 ( in setting of hypotension). Pt was diuresed at [facility], appears euvolemic on exam. Pt wa s [...] Noted Aflutter with RVR at admission in [facility], treated with amiodarone infusion, main taining SR [...] admitted with acute dyspnea, respiratory failure to [facility] 10/03 found to be Flu A p [...] sepsis management , fluid resuscitation. EGD at [facility] on 10/05 showed gastritis, duodenitis, linear ulcerations [...] patient was interviewed and examined by attending director medical affairs, Dr. Khurram Bedoya MD , who is in agreement with above described findings, assessment and plan. KULWINDER Grace Instructor of Medicine [facility] [place] Pager [phone] I spent 33 minutes in coordination of care and upzd-el-dyay with the patient and/or their s urrogate in which management of CAD, imaging plan and consultation with radiology, revascula rization treatment was discussed Associated attestation - Khurram Bedoya MD - 10/13/2017 2:48 PM PSTCardiology Attendi ng I have seen and examined Mr. Mckeon and discussed the [facility]. I reviewed the practitioner's note above and agree with the documented f indings and plan of care. KHURRAM BEDOYA MD Director of the [facility] Hypertrophic Cardiomyopathy Drop Worker of Echocardiography Acetone Button Pasterteacher hearing impaired Division of Cardiovascular Medicine Ashleigh Alvarez ACNP - 10/12/2017 8:02 AM PSTFormatting of this note may be differ ent from the original. Cardiology Inpatient Progress Note Date: 10/12/2017 Hospital Day: 2 Primary Care Physician: Chato Matson MD Outpatient Life Skills Instructor: Dr Jamal Guerrero MD Attending Life Skills Instructor: Khurram Bedoya MD Provider: KULWINDER Grace ID: [...] who was admitted in transfe r from [facility] on 10/11 for consideration of PCI vs [...] found for: FREET4, TSH, TPOAB, THYROGLOB, THYROGLOBAB, P5QGHHV Lab Results Component Value Date A1C 5.6 [...] exam dated, 03/30/2017, the LVEF is similar. [facility] CXR 10/11/17: FINDINGS: The increased lung [...] flow to distal LAD 10/03/17 Echo at [place]: The number of aortic valve leaflets cannot [...] stents # NSTEMI Pt was admitted to [facility] 10/03 with hypoxemic respiratory failure, severe sepsis and s hock thought to be due to influenza type A as below. Noted to have new LBBB, NSTEMI with pea k trop 26. Underwent coronary angiogram at [facility] 10/04 which revealed in stent re-steno sis of both LM into LAD and LCx stents, mild disease of RCA. Transferred to [facility] for further evaluation. TTE shows LV [...] II-III, Stage C. Etiology ischemic. TTE at [facility] showed EF 30-35%, mildly reduced RV function, mild dilation of ascending aorta. LVEDP 14 mm hg during catheterization 10/04 ( in setting of hypotension). He was diuresed at [facility], appears euvolemic on exam today. Pt was [...] Aflutter with RVR prior to admission in [facility], treated with amioda rima infusion, maintaining SR [...] admitted with acute dyspnea, respiratory failure to [facility] 10/03 found to be Flu pos itive. [...] sepsis management , fluid resuscitation. EGD at [facility] on 10/05 showed gastritis, duodenitis, linear ulcerations [...] patient was interviewed and examined by attending director medical affairs, Dr. Khurram Bedoya MD , who is in agreement with above described findings, assessment and plan. Ashleigh Alvarez, [facility] Instructor of Medicine [facility] [place] Pager [phone] I spent 51 minutes in coordination of care and lfzq-gj-ckhb with the patient and/or their s urrogate in which management of CAD, imaging plan and consultation with radiology, pneumonia treatment was discussed Associated attestation - Khurram Bedoya MD - 10/12/2017 3:00 PM PSTCardiology Attendi I have seen and examined Mr. Mckeon and discussed the patient's management with the [facility] practitioner. I reviewed the practitioner's note above and agree with the documented f indings and plan of care. KHURRAM BEDOYA MD Director of the [facility] Hypertrophic Cardiomyopathy Drop Worker of Echocardiography Acetone Button Pasterteacher hearing impaired Division of Cardiovascular Medicine Lopez Suttonsebastiengeno - 10/11/2017 12:15 PM PSTTransthoracic echocardiogram completed. Final report to follow. in this encounter Plan of Treatment + +--------+ + + | Name | Priori | Associated Diagnoses | Order Schedule | | | ty | | | + +--------+ + + | GEL COAT SPRAYER INT CORONARY ANGIOGRAM | Routin | | Tomorrow for 1 | | | e | | Occurrences starting | | | | | 10/15/2017 until | | | | | 10/15/2017 | + +--------+ + + | GEL COAT SPRAYER EP ICD | Routin | | One [...] [address] | | | [place] [address] | + + + CAPILLARY BLOOD GLUCOSE [...] [address] | | | [place] [address] | + + + X-RAY CHEST 2 VIEW (10/17/2017 7:04 AM) + + + | Specimen | Performing Laboratory | + + + | | [facility] RADIOLOGY VOICE RECOGNITION | [...] | + + + | Blood | [facility] LABORATORY SERVICES, CORE [address] | | | [place] [address] | + + + BASIC METABOLIC SET [...] | >60 | >60 mL/min | | MONTENEGRIN | | | + + + + | EGFR NON | 51 (L) | >60 mL/min | | -MONTENEGRIN | | | + + + + [...] | + + + | Blood | [facility] LABORATORY [facility], CORE [address] | | | [place] [address] | + + + + + | [...] | | ------ CBC (HEMOGRAM) | | ONLY[[id number]] Abnormal Final | | result Please view [...] procedure. | | He is candidate for CPC-D since he as class 2 baseline heart failure and currently | | class 3 heart failure with LBBB 152 msec. PROCEDURE ATTENDING: Sophie Darby, | | FELLOW: Amarilis Castle MD PROCEDURAL | | DATA: Procedure: New implant Implanted generator veneer manufacturer: Medtronic | | Implanted leads veneer manufacturer: Medtronic Radha-procedure Anticoag: None Presenting | | rhythm: NSR Existing device under advisory? No Pacemaker dependent: No | | Method of sedation: Conscious sedation - Anesth provider Response to | | sedation: Normal Fluoroscopy time (see log): 45-47 minutes | | MEDICATIONS: See anesthesia log and blender laborer log INTAKE AND OUTPUT: 1000 ml [...] DEVICE INFORMATION: | | BiV-ICD pulse generator: Party Supply Specialist: Medtronic Model number: [id number] | | Serial number: [id number] RA lead: Party Supply Specialist: Medtronic Model number: | | 5076-52 Serial number: [id number] RV lead: Party Supply Specialist: Medtronic | | Model number: [id number] Serial number: [id number] CS lead: | | Party Supply Specialist: Medtronic Model number: [id number] Serial number: [id number] | | MEASURED PARAMETERS: RA lead: P [...] | Fellow Division of Cardiovascular Medicine [facility] | | Pager [phone] Pursuant to Federal Medicare requirements, I certify that I, Sophie | | Wilner BREWER, was present for the entire procedure, performed all critical elements, and | | participated directly in the generation of this report. Sophie Darby MD | | Cardiovascular Medicine - Electrophysiology [facility] [place] at [facility] | | | + + PROCEDURE NOTE [...] Castle MD MEDICATIONS: See anesthesia log and blender laborer | | log FLUIDS: In: 300 ml/ [...] interval (ms): 82 HV interval (ms): 75 CT interval (ms): | | 180 QRS duration [...] Fellow Division of | | Cardiovascular Medicine [facility] Pager [phone] Pursuant | | to Federal Medicare requirements, I certify that I, Sophie Darby MD, was present for | | the entire procedure, performed all critical elements, and participated directly in | | the generation of this report. Sophie Darby MD Cardiovascular Medicine - | | Electrophysiology [facility] [place] at [facility] | + + VBG-FULL ABL, [...] [address] | | | [place] [address] | + + + INTRAPROCEDURE IMAGING (10/16/2017 [...] [address] | | | [place] [address] | + + + CBC (HEMOGRAM) ONLY [...] | + + + | Blood | [facility] LABORATORY SERVICES, CORE [address] [place] [address] | | | [place] [address] | + + + BASIC METABOLIC SET [...] | >60 | >60 mL/min | | MONTENEGRIN | | | + +---------+ + | EGFR NON | 58 (L) | >60 mL/min | | -MONTENEGRIN | | | + +---------+ + | [...] | + + + | Blood | [facility] SERVICES, CORE [address] | | | [place] [address] | + + + + + | [...] | | ------ CBC (HEMOGRAM) | | ONLY[[id number]] Abnormal Final | | result Please view [...] [address] | | | [place] [address] | + + + 12 LEAD ECG [...] Laboratory | + + + | | [facility] [address] [place] [address] | | | [place] [address] | + + + CARDIAC CATH (10/15/2017 2:11 PM) + + | Procedure Note | + + | Tejal Modi MD - 10/15/2017 2:11 PM PST DATE OF PROCEDURE:October 15 | | 2018PERFORMING PHYSICIAN:Tejal Modi [facility] ATTENDING:Mike Bray MDThere was no | [...] 110 mL.FLUOROSCOPY TIME:17.8 minutes.FLUOROSCOPY | | DAP:7406.0 [id number]:1. Left ventricular pressure 91/23 mmHg.2. Aortic | | pressure 93/72 mmHg, mean of 80 mmHg. 3. Heart rate 71 beats per minute.ACCESS:1. | | 14-Belarusian Impella sheath in the right femoral artery.2. 7-Belarusian sheath in the left | | femoral artery.3. 6-Belarusian sheath in the right femoral vein.ESTIMATED BLOOD [...] | micropuncture technique and ultrasound guidance, a 5-Belarusian sheath was inserted in the | | right femoral artery and a 6-Belarusian sheath was inserted in the right femoral vein. Two | | Perclose devices were deployed in the preclosure method and then the 5-Belarusian sheath was | | exchanged over an Amplatz stiff wire for the 14-Belarusian Impella sheath. A 5-Belarusian | | angled pigtail catheter was then [...] technique and ultrasound guidance and placed a 7-Belarusian sheath. A 7-Belarusian XB 3.5 guide | | catheter was [...] and a 3.0 x 18 mm Resolute Encino drug-eluting stent was advanced over the | [...] and pulled out of the body. The 14-Belarusian sheath was | | then removed and [...] with one 3.0 x 18 mm Resolute Encino drug-eluting stent. Successful | | percutaneous coronary [...] | | 10/15/2017 13:25:02DT: 10/15/2017 14:11:10Job #: [id number] | |2. Lesion type: C. | |3. [...] |BCN/MODL | | | | | | /[id number] | + + ACT, POC-CCL ONLY (10/15/2017 [...] [address] | | | [place] [address] | + + + ACT, POC-CCL ONLY (10/15/2017 12:17 PM) + +-------+ + | Component | Value | Ref Range | + +-------+ + | ACT, POC CCL | 247 | 90 - 150 | | INTRAPROC | | | + +-------+ + + + + | Specimen | Performing Laboratory | + + + | Blood | [facility] [place], POINT OF CARE TESTS [address] | | | [place] [address] | + + + ACT, POC-CCL ONLY [...] [address] | | | [place] [address] | + + + GEL COAT SPRAYER EMERGENT/IMMEDIATE PROCEDURE (10/15/2017 11:00 AM) + + | Narrative | + + | Procedure performed in the Cardiac Lithoplate Maker. See procedure notes for details. | + + CAPILLARY BLOOD GLUCOSE (NO CHG), POC (10/15/2017 9:25 AM) + +---------+ + | Component | Value | Ref Range | + +---------+ + | BLOOD GLUCOSE, POC | 119 (H) | 70 - 99 mg/dL | + +---------+ + + + + | Specimen | Performing Laboratory | + + + | | [facility], POINT OF CARE TESTS [address] | | | [place] [address] | + + + CBC (HEMOGRAM) ONLY [...] | + + + | Blood | [facility] SERVICES, CORE [address] | | | [place] [address] | + + + BASIC METABOLIC SET [...] 57 (L) | >60 mL/min | | MONTENEGRIN | | | + + + + | EGFR NON | 47 (L) | >60 mL/min | | -MONTENEGRIN | | | + + + + [...] | + + + | Blood | [facility] SERVICES, CORE [address] [place] [address] | | | [place], [place] [address] | + + + + + | [...] | | ------ CBC (HEMOGRAM) | | ONLY[[id number]] Abnormal Final | | result Please view [...] | + + + | Blood | [facility], CORE [address] | | | [place] [address] | + + + + + | [...] Laboratory | + + + | | [facility] [place], POINT OF CARE TESTS [address] | | | [place] [address] | + + + BASIC METABOLIC SET [...] | >60 | >60 mL/min | | MONTENEGRIN | | | + + + + | EGFR NON | 55 (L) | >60 mL/min | | -MONTENEGRIN | | | + + + + [...] | + + + | Blood | [facility], CORE [address] | | | [place] [address] | + + + + + | [...] | + + + | Blood | [facility] LAB[facility]ATORY [facility], CORE [address] | | | [place] [address] | + + + CBC ONLY (10/14/2017 4:24 AM) + + + | Specimen | Performing Laboratory | + + + | Blood | | + + + + + | Narrative | + + | The following orders were created for panel order CBC ONLY. | | Procedure | | Abnormality Status | | --------- | | ------ CBC (HEMOGRAM) | | ONLY[[id number]] Abnormal Final | | result Please view [...] + + + | | [facility], POINT OF CARE TESTS [address] | | | [place] [address] | + + + PET CARDIAC METABOLIC [...] | | significant tracer uptake within the djw-ai-pgviko anterior wall/interventricular septum | | and apex [...] Note | + + | Service Account, [employer] In Interface - 10/14/2017 5:47 PM PST [...] significant tracer | | uptake within the hdj-jl-sjrfsj anterior wall/interventricular septum and apex | | corresponding to same non-perfused areas seen on myocardial rest perfusion scan, | | compatible with nonviable myocardium in these regions. I have personally reviewed the | | images and, if necessary, edited the report. I agree with the report as now presented. | |No significant tracer uptake within the kcr-dp-acuklq anterior wall/interventricular septum and apex corresponding to [...] + + + | | [facility] [place], POINT OF CARE TESTS [address] | | | [place] [address] | + + + CAPILLARY BLOOD GLUCOSE [...] [address] | | | [place] [address] | + + + CAPILLARY BLOOD GLUCOSE (NO CHG), POC (10/13/2017 4:16 PM) + +---------+ + | Component | Value | Ref Range | + +---------+ + | BLOOD GLUCOSE, POC | 201 (H) | 70 - 99 mg/dL | + +---------+ + + + + | Specimen | Performing Laboratory | + + + | | [facility] [place], POINT OF CARE TESTS [address] | | | [place] [address] | + + + CAPILLARY BLOOD GLUCOSE [...] [address] | | | [place] [address] | + + + CAPILLARY BLOOD GLUCOSE (NO CHG), POC (10/13/2017 3:47 PM) + +---------+ + | Component | Value | Ref Range | + +---------+ + | BLOOD GLUCOSE, POC | 181 (H) | 70 - 99 mg/dL | + +---------+ + + + + | Specimen | Performing Laboratory | + + + | | [facility] [place], POINT OF CARE TESTS [address] | | | [place] [address] | + + + CAPILLARY BLOOD GLUCOSE [...] [address] | | | [place] [address] | + + + CAPILLARY BLOOD GLUCOSE [...] [address] | | | [place] [address] | + + + CAPILLARY BLOOD GLUCOSE (NO CHG), POC (10/13/2017 3:03 PM) + +---------+ + | Component | Value | Ref Range | + +---------+ + | BLOOD GLUCOSE, POC | 153 (H) | 70 - 99 mg/dL | + +---------+ + + + + | Specimen | Performing Laboratory | + + + | | [facility], [facility] [address] | | | [place] [address] | + + + CAPILLARY BLOOD GLUCOSE (NO CHG), POC (10/13/2017 2:44 PM) + +---------+ + | Component | Value | Ref Range | + +---------+ + | BLOOD GLUCOSE, POC | 130 (H) | 70 - 99 mg/dL | + +---------+ + + + + | Specimen | Performing Laboratory | + + + | | [facility], POINT OF CARE TESTS [address] | | | [place] [address] | + + + CAPILLARY BLOOD GLUCOSE [...] [address] | | | [place] [address] | + + + CAPILLARY BLOOD GLUCOSE [...] [address] | | | [place] [address] | + + + NM MYOCARDIAL PERFUSION (SPECT) SINGLE AT REST OR STRESS (10/13/2017 11:18 AM) + + + | Specimen | Performing Laboratory | + + + | | [employer] RADIOLOGY VOICE RECOGNITION | + + + [...] Note | + + | Service Account, [employer] In Interface - 10/13/2017 5:30 PM PST [...] Laboratory | + + + | | [facility] [place], POINT OF CARE TESTS [address] | | | [place] [address] | + + + CBC (HEMOGRAM) ONLY [...] | + + + | Blood | [facility], CORE [address] | | | [place] [address] | + + + BASIC METABOLIC SET [...] | >60 | >60 mL/min | | MONTENEGRIN | | | + +---------+ + | EGFR NON | 59 (L) | >60 mL/min | | -MONTENEGRIN | | | + +---------+ + | [...] | + + + | Blood | [facility], CORE [address] | | | [place] [address] | + + + + + | [...] | | ------ CBC (HEMOGRAM) | | ONLY[[id number]] Abnormal Final | | result Please view [...] Laboratory | + + + | | [facility], POINT OF CARE TESTS [address] | | | [place] [address] | + + + CARDIOLOGY (10/13/2017)CARDIOLOGY (10/13/2017)APTT (ACT. PART. THROMBO TIME) (10/12/2017 8 :44 PM) + +-------+ + | Component | Value | Ref Range | + +-------+ + | APTT | 28.7 | 26.0 - 36.0 seconds | + +-------+ + + + + | Specimen | Performing Laboratory | + + + | Blood | [facility], CORE [address] [place] [address] | | | [place], [place] [address] | + + + + + | [...] [address] | | | [place] [address] | + + + MR CARDIAC COMPREHENSIVE W/O CONTRAST (10/12/2017 12:38 PM) + + + | Specimen | Performing Laboratory | + + + | | [facility] RADIOLOGY CARDIAC IMAGING | + + + + + | Narrative | + + | Report ====== Athlete Manager: Rodríguez Fortune ([id number])shubham Bander And Cellophaner Machine Helper: shubham | | richy Fellow: shubham lockhart Hvac Service Tech: shubham lockhart Viewer: shubham | | richy Report Date: 16 Oct 2017, 09:22:25 PST Patient ------- Patient: | | RON MCKEON Neena Acc #: [id number] | | Ethnicity: N Status: Final Report [...] Formula) | | Image Quality: Good Scanner Party Supply Specialist: Picsean Scanner Model: Ingenia | | Scanner Serial Number: [id number] Scanner Software Platform: 5.3.15.3.1.0 Staff: Rodríguez Fortune Modality: MR Indication Name: routine Protocol Name: CMR W Flows WO Contrast | | Findings -------- Non-cardiac findings were reviewed by Dr. Curtis. This exam was | | terminated prematurely and is lmiited to pallet rectifier images. There are bilateral pleural | | [...] - 10/16/2017 9:22 AM PST | | Report======Athlete Manager: Rodríguez Fortune ([id number]), shubham Rodriguezalyst: shubham | | Lorena: shubham Beckician: shubham Beckwithwer: shubham | | espinozamRalbertoort Date: 16 Oct 2017, 09:22:25 PSTPatient-------Patient: RON MCKEON | | JMedical Record Number: [id number] ID: [id number] #: [id number]: [id number]: | | Final ReportReport Number: [id number]: MaleBirthdate: 1955 (61 yrs)Study Date: 05 | | Oct 2017Study Description: CMR with Flows with ContrastReferring Physician: KHURRAM | | VIKASHITRADHABlood Pressure: /Heart rate:Height (cm): 0Weight (kg): 89BMI (kg/m ): 0BSA | | (m ): 0 (Mosteller Formula)Image Quality: GradeStackcanner Party Supply Specialist: GILUPI | | Avhana HealthScTranscept Pharmaceuticals Model: Sav[employer] Serial Number: [id number] Software Platform: | | 5.3.15.3.1.0Staff: Rodríguez FortuneModality: MRIndication Name: routineProtocol Name: | | CMR W Flows WO ContrastFindings--------Non-cardiac findings were reviewed by | | Ever.This exam was terminated prematurely and is lmiited to pallet rectifier images.There are | | bilateral pleural effusions. [...] Formula) | |Image Quality: Good | |Scanner Party Supply Specialist: Picsean | |Scanner Model: Transmex [employer] International | |Scanner Serial Number: [id number] | |Scanner Software Platform: 5.3.15.3.1.0 | |Staff: Rodríguez Fortune | |Modality: MR | |Indication Name: routine | |Protocol Name: CMR W Flows WO Contrast | |Findings | |-------- | |Non-cardiac findings were reviewed by Dr. Curtis. | |This exam was terminated prematurely and is lmiited to pallet rectifier images. | |There are bilateral pleural effusions. [...] [address] | | | [place] [address] | + + + CBC (HEMOGRAM) ONLY [...] | + + + | Blood | [facility], CORE [address] [place] [address] | | | [place] [address] | + + + APTT (ACT. PART. THROMBO TIME) (10/12/2017 7:01 AM) + + + + | Component | Value | Ref Range | + + + + | APTT | 50.7 (H) | 26.0 - 36.0 seconds | + + + + + + + | Specimen | Performing Laboratory | + + + | Blood | [facility] [address] | | | [place] [address] | + + + + + | [...] | >60 | >60 mL/min | | MONTENEGRIN | | | + + + + | EGFR NON | 55 (L) | >60 mL/min | | -MONTENEGRIN | | | + + + + [...] | + + + | Blood | [facility] SERVICES, CORE [address] | | | [place] [address] | + + + + + | [...] | | ------ CBC (HEMOGRAM) | | ONLY[[id number]] Abnormal Final | | result Please view [...] | + + + | Blood | [facility] SERVICES, CORE [address] [place] [address] | | | [place] [address] | + + + + + | [...] + + + | | [facility] [place], POINT OF CARE TESTS [address] | | | [place] [address] | + + + CAPILLARY BLOOD GLUCOSE [...] [address] | | | [place] [address] | + + + CULTURE, SPUTUM (10/11/2017 5:45 PM) + + + | Specimen | Performing Laboratory | + + + | Sputum | [facility] [address] [place], [place] | | | [address] | + + + + + | Narrative | + + | Culture Report: This culture has been discontinued. Gram Stain: Squamous | | epithelial cells in the specimen indicate the presence of significant oropharyngeal | | contamination. CRITICAL RESULTS Results called to and verified by: Vicki | | Amy at phone # [facility] on: 10/12/2017 8:10:02 AM PST by: [id number] | + + APTT (ACT. PART. THROMBO TIME) (10/11/2017 4:49 PM) + + + + | Component | Value | Ref Range | + + + + | APTT | 39.7 (H) | 26.0 - 36.0 seconds | + + + + + + + | Specimen | Performing Laboratory | + + + | Blood | [facility], CORE [address] | | | [place] [address] | + + + + + | [...] | + + + | Blood | [facility] SERVICES, CORE [address] [place] [address] | | | [place] [address] | + + + APTT (ACT. PART. THROMBO TIME) (10/11/2017 12:43 PM) + + + + | Component | Value | Ref Range | + + + + | APTT | 45.6 (H) | 26.0 - 36.0 seconds | + + + + + + + | Specimen | Performing Laboratory | + + + | Blood | [facility] [address] | | | [place] [address] | + + + + + | [...] | + + + | Blood | [facility] LABORATORY SERVICES, SPECIAL IMM + COAG [address] | | | [place] [address] | + + + + + | Narrative | + + | Alternate forms of testing such as fructosamine should be considered for | | monitoring terminal system operator glycemic control in patients with: Increased red cell turnover, | | certain hemoglobinopathies (e.g., HbS, HbE, HbC and thalassemia syndromes), anemias, | | blood loss, chronic liver disease and hemochromatosis (artefactually low HbA1c); iron | | deficiency anemia (artefactually high HbA1c due to enhanced glycation of hemoglobin). | | Alternate forms of testing such as fructosamine should be considered for | | monitoring care home glycemic control in patients with: Increased [...] | | ------ CBC (HEMOGRAM) | | ONLY[[id number]] Abnormal Final | | result Please view [...] Laboratory | + + + | | [facility] DEPT OF CARDIOLOGY [address] [place] [address] | | | [place] [address] | + + + + + | Narrative | + + | [facility] Adult Echocardiography Laboratory | | [address], [place] [address] Ph: | | Pt Name: RON MCKEON Study | | Date/Time 10/11/2017 / 11:47:35 AM | | Most recent prior: 03/30/2017 Acc #: [id number] No. previous | | echos: 4 : 1955 61 years Heart Rate: 84 bpm | | Height: 69.0 in Blood Pressure: 115/68 mm/Hg | | Weight: 196.0 lb Gender: M | | BSA: 2.05 m2 Order ID: [id number] | | Conditioning Yard Supervisor: Shahab Sutton [facility] Referring Provider: [...] use disorder who presents on transfer from [place] for consideration of | | complex PCI [...] | Wall Scoring: Report electronically signed by: [id number] Khurram Bedoya MD | | (10/11/2017, 12:59:49 PM) Final (Updated) | + + + + | Procedure Note | + + | Interface, Ecg Results - 10/11/2017 1:00 PM Located within [facility] [employer] | | [facility] | | [place], [place] [address] Pt Name: RON Chaudhary | | MIKE Study Date/Time 10/11/2017 / 11:47:35 AMMRN: [id number] Most | | recent prior: 03/30/2017Acc #: [id number] No. previous echos: 4DOB: | | 1955 61 years Heart Rate: 84 bpmHeight: 69.0 in Blood | | Pressure: 115/68 mm/HgWeight: 196.0 lb Gender: MBSA: | | 2.05 m2 Order ID: [id number] Conditioning Yard Supervisor: Shahab Sutton RDCSReferring | | Provider: Kimmy [...] use disorder who presents on transfer from [place] | | for consideration of complex PCI [...] Ao (prox) | | 3.70 cm 18.1 mm/[id number] of chamber size and geometry is accomplished | | through the incorporation of linear, volumetric, and indexed values Wall Scoring: Report | | electronically signed by: [id number] Khurram Bedoya MD (10/11/2017, 12:59:49 PM) | [...] | | | |Report electronically signed by: [id number] Khurram Bedoya MD (10/11/2017, 12:59:49 | |PM) | | | | | | | | Final (Updated) | + + X-RAY PORTABLE CHEST 1 VIEW (10/11/2017 11:24 AM) + + + | Specimen | Performing Laboratory | + + + | | [facility] VOICE RECOGNITION | + + + + + | Narrative | + + | STUDY: CT CHEST 1 VIEW COMPARISON: 03/21/17. HISTORY: Cough. [...] Note | + + | Service Account, [employer] Res In Interface - 10/11/2017 1:51 PM PST STUDY: CT CHEST 1 | | VIEW COMPARISON: 03/21/17.HISTORY: [...] | + + + | Blood | [facility], [address] | | | [place] [address] | + + + CBC ONLY (10/11/2017 6:31 AM) + + + | Specimen | Performing Laboratory | + + + | Blood | | + + + + + | Narrative | + + | The following orders were created for panel order CBC ONLY. | | Procedure | | Abnormality Status | | --------- | | ------ CBC (HEMOGRAM) | | ONLY[[id number]] Abnormal Final | | result Please view [...] | + + + | Blood | [facility], [address] | | | [place] [address] | + + + + + | [...] | >60 | >60 mL/min | | [place] | | | + +---------+ + | EGFR NON | >60 | >60 mL/min | | -[place] | | | + +---------+ + | [...] | + + + | Blood | [facility], [address] | | | [place] [address] | + + + + + | [...] | + + + | Blood | [facility], [address] [place] [address] | | | [place] [address] | + + + APTT (ACT. PART. THROMBO TIME) (10/10/2017 11:27 PM) + +-------+ + | Component | Value | Ref Range | + +-------+ + | APTT | 29.5 | 26.0 - 36.0 seconds | + +-------+ + + + + | Specimen | Performing Laboratory | + + + | Blood | [facility] [address] | | | [place] [address] | + + + + + | [...] | + + + | Blood | [facility], [address] | | | [place] [address] | + + + + + | [...] | | ------ CBC (HEMOGRAM) | | ONLY[[id number]] Abnormal Final | | result Please view [...] | + + + | Blood | [facility], [address] | | | [place] [address] | + + + + + | [...] Laboratory | + + + | | [facility] [address] [place] [address] | | | [place] [address] | + + + ORDERS OTHER (10/10/2017)CARDIOLOGY (10/10/2017)CARDIOLOGY (10/10/2017)CARDIOLOGY (10/10/19)in this encounter Visit Diagnoses + + | Diagnosis | + + | NSTEMI (non-ST elevated myocardial infarction) (HCC) - Primary | + + | Acute myocardial infarction, subendocardial infarction, episode of care unspecified | + + | Coronary 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 involving g[place]ona coronary artery of gakona heart, angina | | presence unspecified | [...] Coronary atherosclerosis of unspecified type of vessel, [place] or graft | + + | Paroxysmal atrial flutter (HCC) | + + | Atrial flutter | + + | Chronic systolic congestive heart failure (HCC) | + + | Chronic systolic heart failure | + + | Encounter for insertion of cardiac resynchronization therapy defibrillator (CPC-D) | + + | Influenza, pneumonia | [...] 12:42 | | | | | Starting [facility] 10/15/17 at 1242, | | PST | [...] Units | | | | PRN, Starting [facility] 10/15/17 at 1207, | | PST | | | | | Until Discontinued | | | | | | + +-------+ +--------+---+---+ +---+---+ | | | +---+---+ + +-------+ +--------+---+---+ | heparin 1,000 unit/mL injection | Given | 10/15/2017 | 1,500 | | | | intravenous, INTRAPROCEDURE | | 12:20 | Units | | | | PRN, Starting [facility] 10/15/17 at 1220, | | PST | [...] 13:05 | | | | | Starting [facility] 10/15/17 at 1305, | | PST | | | | | Until Discontinued | | | | | | + +-------+ +--------+---+---+ +---+---+ | | | +---+---+ + +-------+ +------+---+---+ | iohexol (OMNIPAQUE) 300 mg | Given | 10/16/2017 | 7 mL | | | | iodine/mL INTRAPROCEDURE PRN, | | 14:27 | | | | | Starting [facility] 10/16/17 at 1427, | | PST | [...]
--- OUTSIDE RECORDS SUMMARY | ~2017-11-13 | XMS | Encounter Summary ---
Demographics + + + | Address | [address] | | | [place] [address] | + + + | Home Phone | | + + + | Preferred Language | Unknown | + + + | Marital Status | | + + + | Adventist Affiliation | NRP | + + + | Race | White | + + + | Ethnic Group | Not or | + + + Author + + + | Author | [facility] | + + + | Organization | [facility] | + + + | Address | Unknown | + + + | Phone | Unavailable | + + + Support + + + + + | Name | Relationship | Address | Phone | + + + + + | ANNA MCKEON | ECON | [address] | | | | | [place] [address] | | + + + + + Care Team Providers + +------+ + | Care User Experience Manager Name | Role | Phone | [...] | | | | | (HCC) | [place], [place] | for Health | | | | | Stenosis of | [phone] | and Healing | | | | | coronary | Phone: | [place], [place] | | | | | artery | [phone] | [phone] | | | | | stent, | Fax: | Phone: | | | | | initial | [phone] | [phone] | | | | | encounter | | Fax: | | | | | Procedures | | [phone] | | | | | CONSULT TO [...] + + | 10/10/ | Hospital | [address] | Khurram Bedoya | | | 2018 - | Encounter | [address] | MD K[address] | | | | | [address] [place] [address] | [address] | | | 10/17/ | | [place], [place] | [place], [place] | | | 2018 | | [address] | [address] | | | | | [phone] | [phone] | | | | | | | [...] Referring Physician & Institution: Other Dictation Primary/Outpatient Public Works Inspector: Dr Jamal Guerrero MD Inpatient Attending Physician: Khurram Bedoya MD Author/Discharging Provider: LALA SCHOFIELD PA-C Admission Date: 10/10/2017 Discharge Date: 10/17/2017 Active Hospital Problems 1) *NSTEMI (non-ST elevated myocardial infarction) (HCC) 2) Coronary 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 3) Stenosis of coronary artery stent 4) Ischemic cardiomyopathy 5) Chronic systolic congestive heart failure (HCC) 7) Encounter for insertion of cardiac resynchronization therapy defibrillator (GLOBAL PROGRAM DIRECTOR-D) 8) Paroxysmal atrial flutter (HCC) 9) Influenza, [...] 1) EP study with VT induction 2) GLOBAL PROGRAM DIRECTOR-D implantation Reason For Admission: Consideration of complex PCI vs CABG for in-stent restenosis of LCx and LM/LAD stents Hospital Course: Please see H&P for hospital course at [facility] prior to transfer to [facility]. Ron Mckeon is a 61 [...] treatment who was admitted in transfer from [facility] on 10/11 for consideration of PCI vs [...] support--had one 3.0 x [address] ug-eluting stent placed in ostial L [...] 10/16. VT was induced, therefor e a GLOBAL PROGRAM DIRECTOR-D was implanted. He is discharging home in good condition with follow up in 1 week w ith his Public Works Inspector. The following problems were addressed this hospitalization: [...] uenza and underwent a coronary angiogram at [facility] which revealed in stent re-stenosis of both LM into LAD and LCx stents, mild disease of RCA. Transferred to [facility] for further onel luation. CTS was consulted for consideration of CABG vs complex PCI. Due to nonviable myocardium archie wn on cardiac PET and resting NM perfusion study, PCI was chosen over CABG. On 10/15 he underw ent angiography/PCI with impella support--had one 3.0 x 18 mm Resolute Medora drug-eluting chery nt placed in ostial L [...] II, Stage C. Etiology ischemic. TTE at [facility] showed EF 30-35%, mildly reduced [...] the past --ICD: placed by EP 10/16, GLOBAL PROGRAM DIRECTOR-D -- will need 1 week f/u for wound check, then 1 month device check with EP -- f/u with outpatient home care administrator 2-4 weeks # Paroxysmal Aflutter Noted Aflutter with RVR at admission in [facility]; treated with amiodarone infusion. He w as transitioned to oral amiodarone and maintained normal rhythm. Given that the aflutter occ urred in setting of severe sepsis, will not continue amiodarone or warfarin. If he has recur rent arrhythmia, this will be noted on GLOBAL PROGRAM DIRECTOR-D and could consider anticoagulation at that time . However, he requires DAPT and has a possible history of recent GIB, so triple therapy shou ld be avoided if not necessary --rate control: metoprolol as above --anticoagulation: holding warfarin for now given DAPT and h/o GI B. Discuss further with outpatient home care administrator. May consider holding anticoagulation unless he demonstrates recurrent arrhythmia # Influenza type A - resolved # Community acquired pneumonia # Severe sepsis with shock, resolved Pt presented to [facility] 10/03 found to be Flu Apositive with [...] sepsis management , fluid resuscitation. EGD at [facility] on 10/05 showed gastritis, duodenitis, linear ulcerations [...] first post-hospitalization visit: 1. Wound check from GLOBAL PROGRAM DIRECTOR-D placement 2. Consider restarting lisinopril if BPs improve and Cr is stable 3. Instructed pt to restart metformin on 08/18 but reevaluate based on Cr Schedule the following appointment(s) when you get home KULWINDER Stevens. Go on 10/19/2017. Why: at 1:15pm for heart failure follow up, to re-check labwork, and to have your wound ch ecked Contact information HEART [address] [address] KULWINDER Stevens. Go on 11/11/2017. Why: at 9:30am for cardiology follow up and to have your device checked Contact information HEART [address] [address] Medication List START taking these medications Childrens [...] on 10/19. Indications: type 2 diabetes [facility] metoprolol succinate 25 mg Tb24 [...] 0%. 8.Stent: 3.0 x 18 mm Resolute Medora drug-eluting stent. Lesion #2: 1.Lesion location: Distal [...] circumflex. One 3.0 x 18 mm Resolute Medora drug-eluting stent. Successful percutaneous coronary transluminal angiop [...] ths. You should be cleared by your home care administrator prior to returning to driving. If you [...] How to Contact us: Cardiology Division Office [phone] Cardiology Patient Phone Line EDUIN [address] Dr[address] Dr., Dr., PA-C Connie Barber, NP Karen Paladino, RN Margaret Kleist, RN Evenings or weekends: Ask for on-call home care administrator Drug Eluting Stent 1. Please take Plavix (clopidogrel) everyday which helps to keep the stent open. You need t o take it every day for one year and do not stop unless you are told to by your home care administrator . 2. Take an aspirin 81 mg once daily indefinitely. 3. You were referred for cardiac rehab and should start now that you have had a stent place d. 4. Follow up with your home care administrator within 2-4 weeks. 5. No elective surgeries [...] smoker.Patient counseled on importance of smoking cessation [facility] Last vitals: BP: 101/65 (10/17/17 1144) Pulse: 80 (10/17/17 1144) Resp: 18 ( 1144) Weight: 88.4 kg (194 lb 14.2 oz) (10/17/17 0221) Discharging Provider: LALA SCHOFIELD PA-C, Cardiovascular Medicine Attending Physician: Khurram Bedoya MD, Cardiovascular Medicine Lala Schofield PA-C Instructor of Cardiovascular Medicine [facility] Cardiovascular [place] [facility] [place] I spent 36 minutes in coordination of care and ssbq-tn-styv with the patient and/or their s urrogate in which the problems above were discussed Associated attestation - Khurram Bedoya MD - 10/17/2017 3:22 PM PSTCardiology [facility] I have seen and examined Mr. Mckeon and discussed the patient's management with the [facility] practitioner. I reviewed the practitioner's note above and agree with the documented f indings and plan of care. KHURRAM BEDOYA MD Director of the [facility] Hypertrophic Cardiomyopathy Behavioral Health Consultant of Echocardiography [employer] Professorroute contractor Division of Cardiovascular Medicine in this encounter Discharge Instructions The following attachments cannot be sent through Care Everywhere.WOUND CHECK (CUBAN)ICD ( IMPLANTABLE CARDIOVERTER-DEFIBRILLATOR): POST-OP (CUBAN)PAIN POST-SURGERY: ACUTE (CUBAN) OPIOIDS: SAFE USE (CUBAN)OPIOIDS: STORAGE AND DISPOSAL: GENERAL INFO (CUBAN)in this enco unter Medications at Time of [...] Information: Implant date: 10/16/17 BiV-ICD pulse generator: Stone Breaker: MedTemporal Power Model number: [id number] Serial number: [id number] RA lead: Stone Breaker: Medtronic Model number: 5076-52 Serial number: [id number] RV lead: Stone Breaker: Medtronic Model number: [id number] Serial number: [id number] CS lead: Stone Breaker: Medtronic Model number: [id number] Serial number: [id number] ICD PROGRAMMING: Bradycardia Parameters: Mode: DDD Lower rate limit: 50 Upper rate limit: 130 Output (A): 3.5 V at 0.4 ms Sensitivity (A): 0.3 mV Output (RV): 3.5 V at 0.4 ms Sensitivity (RV): 0.3 mV Output (CS): 2.0 V at 0.4ms Tachycardia Parameters: VT zone: 177-200 Therapies: Monitor VF zone: >200 bpm Therapies: 35 J x 6 PACING PERCENTAGE: AP: <0.1% ASSISTANT CHILD CARE TEACHER: 98.3% EPISODES SINCE IMPLANT: none. TODAY'S TESTING [...] and Device check in one month at [facility] device clinic. I have reque [...] MD Electrophysiology Fellow Division of Cardiovascular Medicine [facility] Pager [phone] Associated attestation - Lauro Jorgensen MD - 10/18/2017 12:04 PM PSTElectrophysiolog y Attending I have seen and examined Mr. Mckeon and discussed the patient's management with the resi dent and/or fellow. I reviewed the housestaff note above and agree with the documented find ings and plan of care. He is doing well. For regular device follow up. Lauro Jorgensen M.D. Director, Electrophysiology [employer] Technicianfield account director [facility] [place] [phone] Amarilis Castle MD - 10/17/2017 10:53 AM [...] hs. You should be cleared by your home care administrator prior to returning to driving. ? If [...] through the full body scanner at the [facility] or, but only after 6 weeks [...] How to Contact us: Cardiology Division Office [phone] Cardiology Patient Phone Line EDUIN [address] [...] 1) EP study with VT induction 2) GLOBAL PROGRAM DIRECTOR-D Indication for the procedure: Ischemic cardiomyopathy with [...] MD Electrophysiology Fellow Division of Cardiovascular Medicine [facility] Pager [phone] Lala Schofield PA-C - 10/16/2017 2:07 PM PSTFormatting of this note may be different fro m the original. IP Cardiology Progress Note Date: 10/16/2017 Hospital Day: 6 Attending Public Works Inspector: Khurram Bedoya MD Provider: LALA SCHOFIELD PA-C Primary Care Provider: Chato Matson MD Outpatient Public Works Inspector: Dr Jamal Guerrero MD ID:Ron Mckeon is a 61 year old male with past medical history of CAD s/p anterior [place]ERY [place] 03/2017 with cardiogenic shock s/p PCI with ANY to LM/LAD and LCx with ECMO support, systo lic heart failure (EF 20-25%), ischemic cardiomyopathy, hypertension, Atrial flutter, prior tobacco use, recent JAVON thrombus on anticoagulation, Influenza A with septic shock (10/03) re quiring intubation and mechanical ventilation, HAP on treatment who was admitted in transfer from [facility] on 10/11 for consideration of PCI vs [...] cannot appreciate murmur and sounds regular. J ASSISTANT CHILD CARE TEACHER not above clavicle at 90 degrees Gastrointestinal: [...] found for: FREET4, TSH, TPOAB, THYROGLOB, THYROGLOBAB, [id number] Lab Results Component Value Date A1C 5.9 [...] 8. Stent: 3.0 x 18 mm Resolute Medora drug-eluting stent. Lesion #2: 1. Lesion location: [...] uenza and underwent a coronary angiogram at [facility] which revealed in stent re-stenosis of both LM into LAD and LCx stents, mild disease of RCA. Transferred to [facility] for further onel luation. CTS was consulted for consideration of CABG vs complex PCI. Due to nonviable myocardium archie wn on cardiac PET and resting NM perfusion study, PCI was chosen over CABG. On 10/15 he underw ent angiography/PCI with impella support--had one 3.0 x 18 mm Resolute Medora drug-eluting chery nt placed in ostial L [...] II-III, Stage C. Etiology ischemic. TTE at [facility] showed EF 30-35%, mildly reduced [...] check with EP -- f/u with outpatient home care administrator 2-4 weeks # Paroxysmal Aflutter Noted Aflutter with RVR at admission in [place]; treated with amiodarone infusion. Now maintaining SR on oral amio. CHADS-VASC 3, HAS-BLED 3. Was previously on heparin infusion fo r NSTEMI but this has been stopped and AC was not started in anticipation of PCI. --rate control: carvedilol as above --rhythm control: continue amiodarone 200 mg daily for now, to be reassessed b y outpatient home care administrator --anticoagulation: holding warfarin for now given DAPT and h/o GIB. Discuss fu rther with outpatient home care administrator. May consider holding anticoagulation unless he demonstra janeth recurrent arrhythmia # Influenza type A - resolved # Community acquired pneumonia # Severe sepsis with shock, resolved Pt presented to [facility] 10/03 found to be Flu A positive [...] sepsis management , fluid resuscitation. EGD at [facility] on 10/05 showed gastritis, duodenitis, linear ulcerations [...] patient was interviewed and examined by attending home care administrator, Dr. Khurram Bedoya MD , who is in agreement with above described findings, assessment and plan. LALA SCHOFIELD PA-C Cardiovascular Medicine [facility] Pager [phone] I spent 36 minutes in coordination of care and hoox-tb-sfhq with the patient and/or their surrogate in [...] Continue current post-cath car tom SUERO MD [facility] [address] [place] [phone] Ruth Ann Carvajal PA-C - 10/15/2017 3:36 [...] circumflex. One 3.0 x 18 mm Resolute Medora drug-eluting stent. Successful percutaneous coronary transluminal angiopla [...] circ and LAD. EPS v-stim with possible GLOBAL PROGRAM DIRECTOR-D tomorrow (QRS today is 152 atypical LB BB). See yesterdays attestation Sophie Darby MD Cardiovascular Medicine - Electrophysiology [facility] Cardiovascular [place] at [facility] Arya Low MD - 10/15/2017 1:05 PM PSTCARDIOLOGY PRELIMINARY PROCEDURE NOTE Primary Care Provider: Chato Matson MD Referring Provider: Other Dictation Break Out Worker Staff: Tejal Modi M.D. Procedure(s): 1. Coronary angiography 2. Percutaneous coronary intervention 3. Left heart catheterization 4. Impella placement and removal 5. Moderate conscious sedation Indications: Unstable angina, planned LM intervention Access: 14-Hong Konger RFA 6-Hong Konger RFV 7-H[place] Konger LFA Post Procedure Access: No evidence of [...] Note Date: 10/15/2017 Hospital Day: 5 Attending Public Works Inspector: Khurram Bedoya MD Provider: LALA SCHOFIELD PA-C Primary Care Provider: Chato Matson MD Outpatient Public Works Inspector: Dr Jamal Guerrero MD ID:Ron Mckeon is a 61 year old male with past medical history of CAD s/p anterior [place]ERY [place] 03/2017 with cardiogenic shock s/p PCI with ANY to LM/LAD and LCx with ECMO support, systo lic heart failure (EF 20-25%), ischemic cardiomyopathy, hypertension, Atrial flutter, prior tobacco use, recent JAVON thrombus on anticoagulation, Influenza A with septic shock (10/03) re quiring intubation and mechanical ventilation, HAP on treatment who was admitted in transfer from [facility] on 10/11 for consideration of PCI vs [...] cannot appreciate murmur and sounds regular. J ASSISTANT CHILD CARE TEACHER not above clavicle at 90 degrees Gastrointestinal: [...] found for: FREET4, TSH, TPOAB, THYROGLOB, THYROGLOBAB, [id number] Lab Results Component Value Date A1C 5.9 [...] uenza and underwent a coronary angiogram at [facility] which revealed in stent re-stenosis of both LM into LAD and LCx stents, mild disease of RCA. Transferred to [facility] for further onel luation. CTS was consulted for consideration of CABG vs complex PCI. Due to nonviable myocardium archie wn on cardiac PET and resting NM perfusion study, he will proceed with PCI tomorrow with Imp tania support. -- to bottle labeler today for PCI with impella support --ASA [...] II-III, Stage C. Etiology ischemic. TTE at [facility] showed EF 30-35%, mildly reduced [...] Noted Aflutter with RVR at admission in [facility]; treated with amiodarone infusion. Now maintaining SR [...] sepsis with shock, resolved Pt presented to [facility] 10/03 found to be Flu A positive [...] sepsis management , fluid resuscitation. EGD at [facility] on 10/05 showed gastritis, duodenitis, linear ulcerations [...] patient was interviewed and examined by attending home care administrator, Dr. Khurram Bedoya MD , who is in agreement with above described findings, assessment and plan. LALA SCHOFIELD PA-C Cardiovascular Medicine [facility] Pager [phone] I spent 38 minutes in coordination of care and plnw-gs-wndy with the patient and/or their surrogate in which the following was discussed: plan for PCI with impella support today, hea rt failure, anticoagulation for aflutter, discharge planning Associated attestation - Khurram Bedoya MD - 10/15/2017 1:15 PM PSTCardiology Attendi I have seen and examined Mr. Mckeon and discussed the patient's management with the [facility] practitioner. I reviewed the practitioner's note above and agree with the documented f indings and plan of care. KHURRAM BEDOYA MD Director of the [facility] Hypertrophic Cardiomyopathy Behavioral Health Consultant of Echocardiography [employer] Professorroute contractor Division of Cardiovascular Medicine Ruth Ann Carvajal [...] thickening is segmentally abnormal. 10/03/17: TTE @ [facility] Summary The number of aortic valve [...] remain. CARDIAC CATHETERIZATION: DATE OF PROCEDURE:10/03/17 @ [facility] CORONARY ANGIOGRAPHY DOMINANCE: Right LEFT MAIN [...] Vf/VT risk in both short and terminal make up operator. Given NSVT and EF 30-35%, we will therefore proceed to an EP study with implantation o f an ICD if she has inducible VT. Given atypical LBBB QRS 147 and current functional status 3 (prior 1-2 by report) and concern for lack of EF recovery, we would plan for GLOBAL PROGRAM DIRECTOR with His- bundle lead if needed. Sophie Darby MD Cardiovascular Medicine - Electrophysiology [facility] Cardiovascular [place] at [facility] Lala Schofield PA-C - 10/14/2017 11:58 AM PSTFormatting of this note may be different fro m the original. IP Cardiology Progress Note Date: 10/14/2017 Hospital Day: 4 Attending Public Works Inspector: Khurram Bedoya MD Provider: LALA SCOHFIELD PA-C Primary Care Provider: Chato Matson MD Outpatient Public Works Inspector: Dr Jamal Guerrero MD ID:oRn Mckeon is a 61 year old male with past medical history of CAD s/p anterior [place]ERY [place] 03/2017 with cardiogenic shock s/p PCI with ANY to LM/LAD and LCx with ECMO support, systo lic heart failure (EF 20-25%), ischemic cardiomyopathy, hypertension, Atrial flutter, prior tobacco use, recent JAVON thrombus on anticoagulation, Influenza A with septic shock (10/03) re quiring intubation and mechanical ventilation, HAP on treatment who was admitted in transfer from [place] on 10/11 for consideration of PCI vs [...] Very t hankful of care provided at [facility] Current Inpatient Medications: acetaminophen (TYLENOL) [...] found for: FREET4, TSH, TPOAB, THYROGLOB, THYROGLOBAB, [id number] Lab Results Component Value Date A1C 5.9 [...] uenza and underwent a coronary angiogram at [facility] which revealed in stent re-stenosis of both LM into LAD and LCx stents, mild disease of RCA. Transferred to [facility] for further onel luation. CTS [...] II-III, Stage C. Etiology ischemic. TTE at [facility] showed EF 30-35%, mildly reduced [...] Noted Aflutter with RVR at admission in [place]; treated with amiodarone infusion. Now maintaining SR [...] sepsis with shock, resolved Pt presented to [facility] 10/03 found to be Flu A positive [...] sepsis management , fluid resuscitation. EGD at [facility] on 10/05 showed gastritis, duodenitis, linear ulcerations [...] patient was interviewed and examined by attending home care administrator, Dr. Khurram Bedoya MD , who is in agreement with above described findings, assessment and plan. LALA SCHOFIELD PA-C Cardiovascular Medicine [facility] Pager [phone] I spent 42 minutes in coordination of care and hhpu-xf-ivjp with the patient and/or their s urrogate in which the following was discussed: results of nuc med and PET scan studies indic ating no viable myocardium and thus will plan for complex PCI tomorrow Associated attestation - Khurram Bedoya MD - 10/14/2017 9:29 PM PSTCardiology Attendi I have seen and examined Mr. Mckeon and discussed the patient's management with the [facility] practitioner. I reviewed the practitioner's note above and agree with the documented f indings and plan of care. KHURRAM BEDOYA MD Director of the [facility] Hypertrophic Cardiomyopathy Behavioral Health Consultant of Echocardiography [employer] Professorroute contractor Division of Cardiovascular Medicine Ashleigh Alvarez ACNP - 10/13/2017 8:33 AM PSTFormatting of this note may be differ ent from the original. Cardiology Inpatient Progress Note Date: 10/13/2017 Hospital Day: 3 Primary Care Physician: Chato Matson MD Outpatient Public Works Inspector: Dr Jamal Guerrero MD Attending Public Works Inspector: Khurram Bedoya MD Provider: Ashleigh Alvarez [facility] ID: Ron Mckeon is a 61 year [...] who was admitted in transfe r from [place] on 10/11 for consideration of PCI vs [...] found for: FREET4, TSH, TPOAB, THYROGLOB, THYROGLOBAB, [id number] Lab Results Component Value Date A1C 5.9 [...] exam dated, 03/30/2017, the LVEF is similar. [facility] CXR 10/11/17: FINDINGS: The increased [...] of the duodenum. - No specimens collected. [facility] and selective coronary angiography 10/04/17 summary (full report in CareEverywhere): 1.Systemic hypotension, upper normal left ventricular end-diastolic pressure 2.Severe in-stent stenosis of left main to ostial LAD stent 3.Severe in-stent stenosis ostial proximal left circumflex stent 4.Mild to moderate RCA disease 5.ANNA grade 1 flow to distal LAD 10/03/17 Echo at [facility]: The number of aortic valve leaflets cannot [...] stents # NSTEMI Pt was admitted to [facility] 10/03 with hypoxemic respiratory failure, severe sepsis and s hock thought to be due to influenza type A as below. Noted to have new LBBB, NSTEMI with pea k trop 26. Underwent coronary angiogram at [facility] 10/04 which revealed in stent re-steno sis of both LM into LAD and LCx stents, mild disease of RCA. Transferred to [facility] for further evaluation. TTE showed [...] II-III, Stage C. Etiology ischemic. TTE at [facility] showed EF 30-35%, mildly reduced RV function, mild dilation of ascending aorta. LVEDP 14 mm hg during catheterization 10/04 ( in setting of hypotension). Pt was diuresed at [facility], appears euvolemic on exam. Pt wa s [...] Noted Aflutter with RVR at admission in [place], treated with amiodarone infusion, main taining SR [...] admitted with acute dyspnea, respiratory failure to [facility] 10/03 found to be Flu A p [...] sepsis management , fluid resuscitation. EGD at [facility] on 10/05 showed gastritis, duodenitis, linear ulcerations [...] patient was interviewed and examined by attending home care administrator, Dr. Khurram Bedoya MD , who is in agreement with above described findings, assessment and plan. KULWINDER Grace Instructor of Medicine [facility] Cardiovascular [place] Pager [phone] I spent 33 minutes in coordination of care and pmri-xz-yjdi with the patient and/or their s urrogate in which management of CAD, imaging plan and consultation with radiology, revascula rization treatment was discussed Associated attestation - Khurram Bdeoya MD - 10/13/2017 2:48 PM PSTCardiology Attendi ng I have seen and examined Mr. Mckeon and discussed the patient's management with the [facility] practitioner. I reviewed the practitioner's note above and agree with the documented f indings and plan of care. KHURRAM BEDOYA MD Director of the [facility] Hypertrophic Cardiomyopathy Behavioral Health Consultant of Echocardiography [employer] Professorroute contractor Division of Cardiovascular Medicine Ashleigh Alvarez ACNP - 10/12/2017 8:02 AM PSTFormatting of this note may be differ ent from the original. Cardiology Inpatient Progress Note Date: 10/12/2017 Hospital Day: 2 Primary Care Physician: Chato Matson MD Outpatient Public Works Inspector: Dr Jamal Guerrero MD Attending Public Works Inspector: Khurram Bedoya MD Provider: KULWINDER Grace ID: [...] who was admitted in transfe r from [place] on 10/11 for consideration of PCI vs [...] found for: FREET4, TSH, TPOAB, THYROGLOB, THYROGLOBAB, D8OYPAN Lab Results Component Value Date A1C 5.6 [...] exam dated, 03/30/2017, the LVEF is similar. [facility] CXR 10/11/17: FINDINGS: The increased [...] flow to distal LAD 10/03/17 Echo at [facility]: The number of aortic valve leaflets cannot [...] stents # NSTEMI Pt was admitted to [place] 10/03 with hypoxemic respiratory failure, severe sepsis and s hock thought to be due to influenza type A as below. Noted to have new LBBB, NSTEMI with pea k trop 26. Underwent coronary angiogram at [place] 10/04 which revealed in stent re-steno sis of both LM into LAD and LCx stents, mild disease of RCA. Transferred to [facility] for further evaluation. TTE shows [...] II-III, Stage C. Etiology ischemic. TTE at [facility] showed EF 30-35%, mildly reduced RV function, mild dilation of ascending aorta. LVEDP 14 mm hg during catheterization 10/04 ( in setting of hypotension). He was diuresed at [place], appears euvolemic on exam today. Pt was [...] Aflutter with RVR prior to admission in [place], treated with amioda rima infusion, maintaining SR [...] admitted with acute dyspnea, respiratory failure to [place] 10/03 found to be Flu pos itive. [...] sepsis management , fluid resuscitation. EGD at [place] on 10/05 showed gastritis, duodenitis, linear ulcerations [...] patient was interviewed and examined by attending home care administrator, Dr. Khurram Bedyoa MD , who is in agreement with above described findings, assessment and plan. Ashleigh Alvarez, [facility] Instructor of Medicine [facility] Cardi[facility] [place] Pager [phone] I spent 51 minutes in coordination of care and cexj-yf-uegy with the patient and/or their s urrogate in which management of CAD, imaging plan and consultation with radiology, pneumonia treatment was discussed Associated attestation - Khurram Bedoya MD - 10/12/2017 3:00 PM PSTCardiology Attendi I have seen and examined Mr. Mckeon and discussed the patient's management with the [facility] practitioner. I reviewed the practitioner's note above and agree with the documented f indings and plan of care. KHURRAM BEDOYA MD Director of the [facility] Hypertrophic Cardiomyopathy Behavioral Health Consultant of Echocardiography [employer] Professorroute contractor Division of Cardiovascular Medicine Lopez Suttonsebastiengeno - 10/11/2017 12:15 PM PSTTransthoracic echocardiogram completed. Final report to follow. in this encounter Plan of Treatment + +--------+ + + | Name | Priori | Associated Diagnoses | Order Schedule | | | ty | | | + +--------+ + + | SEAFOOD AND SERVICE MEAT MANAGER INT CORONARY ANGIOGRAM | Routin | | Tomorrow for 1 | | | e | | Occurrences starting | | | | | 10/15/2017 until | | | | | 10/15/2017 | + +--------+ + + | SEAFOOD AND SERVICE MEAT MANAGER EP ICD | Routin | | One [...] [address] | | | [place] [address] | + + + CAPILLARY BLOOD GLUCOSE [...] [address] | | | [place] [address] | + + + X-RAY CHEST 2 VIEW (10/17/2017 7:04 AM) + + + | Specimen | Performing Laboratory | + + + | | [facility] RADIOLOGY VOICE RECOGNITION | + [...] | + + + | Blood | [facility] SERVICES, CORE [address] | | | [place] [address] | + + + BASIC METABOLIC SET [...] | >60 | >60 mL/min | | SYRIAN | | | + + + + | EGFR NON | 51 (L) | >60 mL/min | | -SYRIAN | | | + + + + [...] | + + + | Blood | [facility] LABORATORY [facility], CORE [address] | | | [place] [address] | + + + + + | [...] | | ------ CBC (HEMOGRAM) | | ONLY[[id number]] Abnormal Final | | result Please view results for these tests on the | | individual orders. | + + CARDIOLOGY (10/17/2017)CARDIOLOGY (10/17/2017)X-RAY PORTABLE CHEST 1 VIEW (10/16/2017 6:20 PM) + + + | Specimen | Performing Laboratory | + + + | | [facility] RADIOLOGY VOICE RECOGNITION | + + + + + | Narrative | + + | STUDY: UT CHEST 1 VIEW HISTORY: Evaluated lead placement. COMPARISON: | | STUDY: UT CHEST 1 VIEW FINDINGS: A new left [...] Interface - 10/17/2017 7:51 AM PST STUDY: UT CHEST 1 | | VIEWHISTORY: Evaluated lead placement.COMPARISON: STUDY: UT CHEST 1 VIEWFINDINGS: A | | new [...] procedure. | | He is candidate for GLOBAL PROGRAM DIRECTOR-D since he as class 2 baseline heart failure and currently | | class 3 heart failure with LBBB 152 msec. PROCEDURE ATTENDING: Sophie Darby, | | FELLOW: Amarilis Castle MD PROCEDURAL | | DATA: Procedure: New implant Implanted generator multi operation machine operator: Medtronic | | Implanted leads multi operation machine operator: Medtronic Radha-procedure Anticoag: None Presenting | | rhythm: NSR Existing device under advisory? No Pacemaker dependent: No | | Method of sedation: Conscious sedation - Anesth provider Response to | | sedation: Normal Fluoroscopy time (see log): 45-47 minutes | | MEDICATIONS: See anesthesia log and bottle labeler log INTAKE AND OUTPUT: 1000 ml | [...] DEVICE INFORMATION: | | BiV-ICD pulse generator: Stone Breaker: Medtronic Model number: [id number] | | Serial number: [id number] RA lead: Stone Breaker: Medtronic Model number: | | 5076-52 Serial number: [id number] RV lead: Stone Breaker: Medtronic | | Model number: [id number] Serial number: [id number] CS lead: | | Stone Breaker: Medtronic Model number: [id number] Serial number: [id number] | | MEASURED PARAMETERS: RA lead: P [...] | | Fellow Division of Cardiovascular Medicine [facility] | | Pager [phone] Pursuant to Federal Medicare requirements, I certify that I, Sophie | | Wilner BREWER, was present for the entire procedure, performed all critical elements, and | | participated directly in the generation of this report. Sophie Darby MD | | Cardiovascular Medicine - Electrophysiology [facility] Cardiovascular [place] at [facility] | | | + + PROCEDURE NOTE [...] Castle MD MEDICATIONS: See anesthesia log and bottle labeler | | log FLUIDS: In: 300 ml/ [...] interval (ms): 82 HV interval (ms): 75 UT interval (ms): | | 180 QRS duration [...] Fellow Division of | | Cardiovascular Medicine [facility] Pager [phone] Pursuant | | to Federal Medicare requirements, I certify that I, Sophie Darby MD, was present for | | the entire procedure, performed all critical elements, and participated directly in | | the generation of this report. Sophie Darby MD Cardiovascular Medicine - | | Electrophysiology [facility] [place] at [facility] | + + VBG-FULL ABL, [...] [address] | | | [place] [address] | + + + INTRAPROCEDURE IMAGING (10/16/2017 [...] [address] | | | [place] [address] | + + + CBC (HEMOGRAM) ONLY [...] | + + + | Blood | [facility] SERVICES, CORE [address] [place] [address] | | | [place] [address] | + + + BASIC METABOLIC SET [...] | >60 | >60 mL/min | | SYRIAN | | | + +---------+ + | EGFR NON | 58 (L) | >60 mL/min | | -SYRIAN | | | + +---------+ + | [...] | + + + | Blood | [facility], CORE [address] | | | [place] [address] | + + + + + | [...] | | ------ CBC (HEMOGRAM) | | ONLY[[id number]] Abnormal Final | | result Please view [...] [address] | | | [place] [address] | + + + 12 LEAD ECG [...] Laboratory | + + + | | [facility] [address] [place] [address] | | | [place] [address] | + + + CARDIAC CATH (10/15/2017 2:11 PM) + + | Procedure Note | + + | Tejal Modi MD - 10/15/2017 2:11 PM PST DATE OF PROCEDURE:October 15 | | 2018PERFORMING PHYSICIAN:Tejal Modi [facility] ATTENDING:Mike Bray MDThere was no [...] 110 mL.FLUOROSCOPY TIME:17.8 minutes.FLUOROSCOPY | | DAP:7406.0 [id number]:1. Left ventricular pressure 91/23 mmHg.2. Aortic | | pressure 93/72 mmHg, mean of 80 mmHg. 3. Heart rate 71 beats per minute.ACCESS:1. | | 14-Hong Konger Impella sheath in the right femoral artery.2. 7-Hong Konger sheath in the left | | femoral artery.3. 6-Hong Konger sheath in the right femoral vein.ESTIMATED BLOOD [...] | micropuncture technique and ultrasound guidance, a 5-Hong Konger sheath was inserted in the | | right femoral artery and a 6-Hong Konger sheath was inserted in the right femoral vein. Two | | Perclose devices were deployed in the preclosure method and then the 5-Hong Konger sheath was | | exchanged over an Amplatz stiff wire for the 14-Hong Konger Impella sheath. A 5-Hong Konger | | angled pigtail catheter was then [...] technique and ultrasound guidance and placed a 7-Hong Konger sheath. A 7-Hong Konger XB 3.5 guide | | catheter was [...] and a 3.0 x 18 mm Resolute Medora drug-eluting stent was advanced over the | [...] and pulled out of the body. The 14-Hong Konger sheath was | | then removed and [...] with one 3.0 x 18 mm Resolute Medora drug-eluting stent. Successful | | percutaneous coronary [...] | | 10/15/2017 13:25:02DT: 10/15/2017 14:11:10Job #: [id number] | |2. Lesion type: C. | |3. [...] |BCN/MODL | | | | | | /[id number] | + + ACT, POC-CCL ONLY (10/15/2017 [...] [address] | | | [place] [address] | + + + ACT, POC-CCL ONLY (10/15/2017 12:17 PM) + +-------+ + | Component | Value | Ref Range | + +-------+ + | ACT, POC CCL | 247 | 90 - 150 | | INTRAPROC | | | + +-------+ + + + + | Specimen | Performing Laboratory | + + + | Blood | [facility] [place], POINT OF CARE TESTS [address] | | | [place] [address] | + + + ACT, POC-CCL ONLY [...] [address] | | | [place] [address] | + + + SEAFOOD AND SERVICE MEAT MANAGER EMERGENT/IMMEDIATE PROCEDURE (10/15/2017 11:00 AM) + + | Narrative | + + | Procedure performed in the Cardiac Break Out Worker. See procedure notes for details. | + + CAPILLARY BLOOD GLUCOSE (NO CHG), POC (10/15/2017 9:25 AM) + +---------+ + | Component | Value | Ref Range | + +---------+ + | BLOOD GLUCOSE, POC | 119 (H) | 70 - 99 mg/dL | + +---------+ + + + + | Specimen | Performing Laboratory | + + + | | [facility], POINT OF CARE TESTS [address] | | | [place] [address] | + + + CBC (HEMOGRAM) ONLY [...] | + + + | Blood | [facility], CORE [address] | | | [place] [address] | + + + BASIC METABOLIC SET [...] 57 (L) | >60 mL/min | | SYRIAN | | | + + + + | EGFR NON | 47 (L) | >60 mL/min | | -SYRIAN | | | + + + + [...] | + + + | Blood | [facility], CORE [address] [place] [address] | | | [place], [place] [address] | + + + + + | [...] | | ------ CBC (HEMOGRAM) | | ONLY[[id number]] Abnormal Final | | result Please view [...] | + + + | Blood | [facility], CORE [address] | | | [place] [address] | + + + + + | [...] Laboratory | + + + | | [facility] [place], POINT OF CARE TESTS [address] | | | [place] [address] | + + + BASIC METABOLIC SET [...] | >60 | >60 mL/min | | SYRIAN | | | + + + + | EGFR NON | 55 (L) | >60 mL/min | | -SYRIAN | | | + + + + [...] | + + + | Blood | [facility], CORE [address] | | | [place] [address] | + + + + + | [...] | + + + | Blood | [facility] LAB[facility]ORY [facility], CORE [address] | | | [place] [address] | + + + CBC ONLY (10/14/2017 4:24 AM) + + + | Specimen | Performing Laboratory | + + + | Blood | | + + + + + | Narrative | + + | The following orders were created for panel order CBC ONLY. | | Procedure | | Abnormality Status | | --------- | | ------ CBC (HEMOGRAM) | | ONLY[[id number]] Abnormal Final | | result Please view [...] + + + | | [facility], POINT OF CARE TESTS [address] | | | [place] [address] | + + + PET CARDIAC METABOLIC [...] | | significant tracer uptake within the itz-wn-igyfhp anterior wall/interventricular septum | | and apex [...] Note | + + | Service Account, WeMonitor In Interface - 10/14/2017 5:47 PM PST [...] significant tracer | | uptake within the tdn-cz-abgloa anterior wall/interventricular septum and apex | | corresponding to same non-perfused areas seen on myocardial rest perfusion scan, | | compatible with nonviable myocardium in these regions. I have personally reviewed the | | images and, if necessary, edited the report. I agree with the report as now presented. | |No significant tracer uptake within the snq-pj-tjjleh anterior wall/interventricular septum and apex corresponding to [...] + + + | | [facility] [place], POINT OF CARE TESTS [address] | | | [place] [address] | + + + CAPILLARY BLOOD GLUCOSE [...] [address] | | | [place] [address] | + + + CAPILLARY BLOOD GLUCOSE (NO CHG), POC (10/13/2017 4:16 PM) + +---------+ + | Component | Value | Ref Range | + +---------+ + | BLOOD GLUCOSE, POC | 201 (H) | 70 - 99 mg/dL | + +---------+ + + + + | Specimen | Performing Laboratory | + + + | | [facility] [place], POINT OF CARE TESTS [address] | | | [place] [address] | + + + CAPILLARY BLOOD GLUCOSE [...] [address] | | | [place] [address] | + + + CAPILLARY BLOOD GLUCOSE (NO CHG), POC (10/13/2017 3:47 PM) + +---------+ + | Component | Value | Ref Range | + +---------+ + | BLOOD GLUCOSE, POC | 181 (H) | 70 - 99 mg/dL | + +---------+ + + + + | Specimen | Performing Laboratory | + + + | | [facility] [place], POINT OF CARE TESTS [address] | | | [place] [address] | + + + CAPILLARY BLOOD GLUCOSE [...] [address] | | | [place] [address] | + + + CAPILLARY BLOOD GLUCOSE [...] [address] | | | [place] [address] | + + + CAPILLARY BLOOD GLUCOSE (NO CHG), POC (10/13/2017 3:03 PM) + +---------+ + | Component | Value | Ref Range | + +---------+ + | BLOOD GLUCOSE, POC | 153 (H) | 70 - 99 mg/dL | + +---------+ + + + + | Specimen | Performing Laboratory | + + + | | [facility], POINT OF CARE TESTS [address] | | | [place] [address] | + + + CAPILLARY BLOOD GLUCOSE (NO CHG), POC (10/13/2017 2:44 PM) + +---------+ + | Component | Value | Ref Range | + +---------+ + | BLOOD GLUCOSE, POC | 130 (H) | 70 - 99 mg/dL | + +---------+ + + + + | Specimen | Performing Laboratory | + + + | | [facility], POINT OF CARE TESTS [address] | | | [place] [address] | + + + CAPILLARY BLOOD GLUCOSE [...] [address] | | | [place] [address] | + + + CAPILLARY BLOOD GLUCOSE [...] [address] | | | [place] [address] | + + + NM MYOCARDIAL PERFUSION (SPECT) SINGLE AT REST OR STRESS (10/13/2017 11:18 AM) + + + | Specimen | Performing Laboratory | + + + | | [facility] RADIOLOGY VOICE RECOGNITION | + + + [...] Note | + + | Service Account, WeMonitor In Interface - 10/13/2017 5:30 PM PST [...] Laboratory | + + + | | [facility] [place], POINT OF CARE TESTS [address] | | | [place] [address] | + + + CBC (HEMOGRAM) ONLY [...] | + + + | Blood | [facility], CORE [address] | | | [place] [address] | + + + BASIC METABOLIC SET [...] | >60 | >60 mL/min | | SYRIAN | | | + +---------+ + | EGFR NON | 59 (L) | >60 mL/min | | -SYRIAN | | | + +---------+ + | [...] | + + + | Blood | [facility], CORE [address] | | | [place] [address] | + + + + + | [...] | | ------ CBC (HEMOGRAM) | | ONLY[[id number]] Abnormal Final | | result Please view [...] Laboratory | + + + | | [facility], POINT OF CARE TESTS [address] [facility] [facility] [address] | | | [place] [address] | + + + CARDIOLOGY (10/13/2017)CARDIOLOGY (10/13/2017)APTT (ACT. PART. THROMBO TIME) (10/12/2017 8 :44 PM) + +-------+ + | Component | Value | Ref Range | + +-------+ + | APTT | 28.7 | 26.0 - 36.0 seconds | + +-------+ + + + + | Specimen | Performing Laboratory | + + + | Blood | [facility], CORE [address] [place] [address] | | | [place], [place] [address] | + + + + + | [...] [address] | | | [place] [address] | + + + MR CARDIAC COMPREHENSIVE W/O CONTRAST (10/12/2017 12:38 PM) + + + | Specimen | Performing Laboratory | + + + | | [facility] RADIOLOGY CARDIAC IMAGING | + + + + + | Narrative | + + | Report ====== Automotive Tire Technician: Rodríguez Fortune ([id number])shubham Family Nurse Practitioner: shubham | | richy Fellow: shubham lockhart Director Health: shubham lockhart Viewer: shubham | | richy Report Date: 16 Oct 2017, 09:22:25 PST Patient ------- Patient: | | RON MCKEON Neena Acc #: [id number] | | Ethnicity: N Status: Final Report [...] Formula) | | Image Quality: Good Scanner Stone Breaker: Kaai Scanner Model: Ingenia | | Scanner Serial Number: [id number] Scanner Software Platform: 5.3.15.3.1.0 Staff: Rodríguez Fortune Modality: MR Indication Name: routine Protocol Name: CMR W Flows WO Contrast | | Findings -------- Non-cardiac findings were reviewed by Dr. Curtis. This exam was | | terminated prematurely and is lmiited to caster helper images. There are bilateral pleural | | [...] - 10/16/2017 9:22 AM PST | | Report======Automotive Tire Technician: Rodríguez Fortune ([id number]), shubham Rodriguezalyst: shubham | | Lorena: shubham Beckician: shubham Beckwithwer: shubham | | espinozamRalbertoort Date: 16 Oct 2017, 09:22:25 PSTPatient-------Patient: RON MCKEON | | JMedical Record Number: [id number] ID: [id number] #: [id number]: [id number]: | | Final ReportReport Number: [id number]: MaleBirthdate: 1955 (61 yrs)Study Date: 05 | | Oct 2017Study Description: CMR with Flows with ContrastReferring Physician: KHURRAM | | VIKASHITRADHABlood Pressure: /Heart rate:Height (cm): 0Weight (kg): 89BMI (kg/m ): 0BSA | | (m ): 0 (Mosteller Formula)Image Quality: Weever Appscanner Stone Breaker: Angstro | | Re-[email or web address] Model: Ondeego Serial Number: [id number] Software Platform: | | 5.3.15.3.1.0Staff: Rodríguez FortuneModality: MRIndication Name: routineProtocol Name: | | CMR W Flows WO ContrastFindings--------Non-cardiac findings were reviewed by | | Ever.This exam was terminated prematurely and is lmiited to caster helper images.There are | | bilateral pleural effusions. [...] Formula) | |Image Quality: Good | |Scanner Stone Breaker: Kaai | |Scanner Model: FamilyLink | |Scanner Serial Number: [id number] | |Scanner Software Platform: 5.3.15.3.1.0 | |Staff: Rodríguez Fortune | |Modality: MR | |Indication Name: routine | |Protocol Name: CMR W Flows WO Contrast | |Findings | |-------- | |Non-cardiac findings were reviewed by Dr. Curtis. | |This exam was terminated prematurely and is lmiited to caster helper images. | |There are bilateral pleural effusions. [...] [address] | | | [place] [address] | + + + CBC (HEMOGRAM) ONLY [...] | + + + | Blood | [facility], CORE [address] [place] [address] | | | [place] [address] | + + + APTT (ACT. PART. THROMBO TIME) (10/12/2017 7:01 AM) + + + + | Component | Value | Ref Range | + + + + | APTT | 50.7 (H) | 26.0 - 36.0 seconds | + + + + + + + | Specimen | Performing Laboratory | + + + | Blood | [facility] [address] | | | [place] [address] | + + + + + | [...] | >60 | >60 mL/min | | SYRIAN | | | + + + + | EGFR NON | 55 (L) | >60 mL/min | | -SYRIAN | | | + + + + [...] | + + + | Blood | [facility], CORE [address] | | | [place] [address] | + + + + + | [...] | | ------ CBC (HEMOGRAM) | | ONLY[[id number]] Abnormal Final | | result Please view [...] | + + + | Blood | [facility], CORE [address] [place] [address] | | | [place] [address] | + + + + + | [...] + + + | | [facility] [place], POINT OF CARE TESTS [address] | | | [place] [address] | + + + CAPILLARY BLOOD GLUCOSE [...] [address] | | | [place] [address] | + + + CULTURE, SPUTUM (10/11/2017 5:45 PM) + + + | Specimen | Performing Laboratory | + + + | Sputum | [facility] [address] [place], [place] | | | [address] | + + + + + | Narrative | + + | Culture Report: This culture has been discontinued. Gram Stain: Squamous | | epithelial cells in the specimen indicate the presence of significant oropharyngeal | | contamination. CRITICAL RESULTS Results called to and verified by: Vicki | | Amy at phone # [facility] on: 10/12/2017 8:10:02 AM PST by: [id number] | + + APTT (ACT. PART. THROMBO TIME) (10/11/2017 4:49 PM) + + + + | Component | Value | Ref Range | + + + + | APTT | 39.7 (H) | 26.0 - 36.0 seconds | + + + + + + + | Specimen | Performing Laboratory | + + + | Blood | [facility], CORE [address] [facility] [address] | | | [place] [address] | + + + + + | [...] | + + + | Blood | [facility], CORE [address] [place] [address] | | [facility] [address] | + + + APTT (ACT. PART. THROMBO TIME) (10/11/2017 12:43 PM) + + + + | Component | Value | Ref Range | + + + + | APTT | 45.6 (H) | 26.0 - 36.0 seconds | + + + + + + + | Specimen | Performing Laboratory | + + + | Blood | [facility] [address] | | | [place] [address] | + + + + + | [...] | + + + | Blood | [facility] SERVICES, SPECIAL IMM + COAG [address] [facility] | | | [place] [address] | + + + + + | Narrative | + + | Alternate forms of testing such as fructosamine should be considered for | | monitoring terminal make up operator glycemic control in patients with: Increased [...] should be considered for | | monitoring halfway glycemic control in patients with: Increased red [...] | | ------ CBC (HEMOGRAM) | | ONLY[[id number]] Abnormal Final | | result Please view [...] Laboratory | + + + | | [facility] DEPT OF CARDIOLOGY [address] [place] [address] | | | [place] [address] | + + + + + | Narrative | + + | [facility] Adult Echocardiography Laboratory | | [address] [place], [place] [address] Ph: | | Pt Name: RON MCKEON Study | | Date/Time 10/11/2017 / 11:47:35 AM | | Most recent prior: 03/30/2017 Acc #: [id number] No. previous | | echos: 4 : 1955 61 years Heart Rate: 84 bpm | | Height: 69.0 in Blood Pressure: 115/68 mm/Hg | | Weight: 196.0 lb Gender: M | | BSA: 2.05 m2 Order ID: [id number] | | Mobile Game Engineer: Shahab Sutton [facility] Referring Provider: Kimmy Low Patient [...] use disorder who presents on transfer from [place] for consideration of | | complex PCI [...] | Wall Scoring: Report electronically signed by: [id number] Khurram Bedoya MD | | (10/11/2017, 12:59:49 PM) Final (Updated) | + + + + | Procedure Note | + + | Interface, Ecg Results - 10/11/2017 1:00 PM [facility] | | [facility] Echocardiography Laboratory [facility] | | [place], [place] [address] Pt Name: RON Chaudhary | | MIKE Study Date/Time 10/11/2017 / 11:47:35 AMMRN: [id number] Most | | recent prior: 03/30/2017Acc #: [id number] No. previous echos: 4DOB: | | 1955 61 years Heart Rate: 84 bpmHeight: 69.0 in Blood | | Pressure: 115/68 mm/HgWeight: 196.0 lb Gender: MBSA: | | 2.05 m2 Order ID: [id number] Mobile Game Engineer: Shahab Sutton RDCSReferring | | Provider: [...] use disorder who presents on transfer from [place] | | for consideration of complex PCI [...] Ao (prox) | | 3.70 cm 18.1 mm/y9Wuoeumnnqk of chamber size and geometry is accomplished | | through the incorporation of linear, volumetric, and indexed values Wall Scoring: Report | | electronically signed by: [id number] Khurram Bedoya MD (10/11/2017, 12:59:49 PM) | [...] | | | |Report electronically signed by: [id number] Khurram Bedoya MD (10/11/2017, 12:59:49 | |PM) | | | | | | | | Final (Updated) | + + X-RAY PORTABLE CHEST 1 VIEW (10/11/2017 11:24 AM) + + + | Specimen | Performing Laboratory | + + + | | [place] RADI[facility]Y VOICE RECOGNITION | + + + + + | Narrative | + + | STUDY: UT CHEST 1 VIEW COMPARISON: 03/21/17. HISTORY: Cough. [...] Note | + + | Service Account, Snapfish Res In Interface - 10/11/2017 1:51 PM PST STUDY: UT CHEST 1 | | VIEW COMPARISON: 03/21/17.HISTORY: [...] | + + + | Blood | [facility], CORE [address] | | | [place] [address] | + + + CBC ONLY (10/11/2017 6:31 AM) + + + | Specimen | Performing Laboratory | + + + | Blood | | + + + + + | Narrative | + + | The following orders were created for panel order CBC ONLY. | | Procedure | | Abnormality Status | | --------- | | ------ CBC (HEMOGRAM) | | ONLY[[id number]] Abnormal Final | | result Please view [...] | + + + | Blood | [facility], [address]ORE [address] | | | [place] [address] | + + + + + | [...] | >60 | >60 mL/min | | SYRIAN | | | + +---------+ + | EGFR NON | >60 | >60 mL/min | | -SYRIAN | | | + +---------+ + | [...] | + + + | Blood | [facility], [address] | | | [place] [address] | + + + + + | [...] | + + + | Blood | [facility], CORE [address] [place] [address] | | | [place] [address] | + + + APTT (ACT. PART. THROMBO TIME) (10/10/2017 11:27 PM) + +-------+ + | Component | Value | Ref Range | + +-------+ + | APTT | 29.5 | 26.0 - 36.0 seconds | + +-------+ + + + + | Specimen | Performing Laboratory | + + + | Blood | [facility] [address] | | | [place] [address] | + + + + + | [...] | + + + | Blood | [facility], [address] | | | [place] [address] | + + + + + | [...] | | ------ CBC (HEMOGRAM) | | ONLY[[id number]] Abnormal Final | | result Please view [...] | + + + | Blood | [facility], [address] [facility] | | | [place] [address] | + + + + + | [...] + | | [facility] [address] [place] [address] | | | [place] [address] | + + + ORDERS OTHER (10/10/2017)CARDIOLOGY (10/10/2017)CARDIOLOGY (10/10/2017)CARDIOLOGY (10/10/19)in this encounter Visit Diagnoses + + | Diagnosis | + + | NSTEMI (non-ST elevated myocardial infarction) (HCC) - Primary | + + | Acute myocardial infarction, subendocardial infarction, episode of care unspecified | + + | Coronary 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 involving mi'kmaq coronary artery of mi'kmaq heart, angina | | presence unspecified | [...] Coronary atherosclerosis of unspecified type of vessel, mi'kmaq or graft | + + | Paroxysmal atrial flutter (HCC) | + + | Atrial flutter | + + | Chronic systolic congestive heart failure (HCC) | + + | Chronic systolic heart failure | + + | Encounter for insertion of cardiac resynchronization therapy defibrillator (GLOBAL PROGRAM DIRECTOR-D) | + + | Influenza, pneumonia | [...] 12:42 | | | | | Starting [facility] 10/15/17 at 1242, | | PST [...] Units | | | | PRN, Starting [facility] 10/15/17 at 1207, | | PST | | | | | Until Discontinued | | | | | | + +-------+ +--------+---+---+ +---+---+ | | | +---+---+ + +-------+ +--------+---+---+ | heparin 1,000 unit/mL injection | Given | 10/15/2017 | 1,500 | | | | intravenous, INTRAPROCEDURE | | 12:20 | Units | | | | PRN, Starting [facility] 10/15/17 at 1220, | | PST [...] 13:05 | | | | | Starting [facility] 10/15/17 at 1305, | | PST | | | | | Until Discontinued | | | | | | + +-------+ +--------+---+---+ +---+---+ | | | +---+---+ + +-------+ +------+---+---+ | iohexol (OMNIPAQUE) 300 mg | Given | 10/16/2017 | 7 mL | | | | iodine/mL INTRAPROCEDURE PRN, | | 14:27 | | | | | Starting [facility] 10/16/17 at 1427, | | PST | [...]
--- OUTSIDE RECORDS SUMMARY | ~2017-11-13 | XMS | Encounter Summary ---
Demographics + + + | Address | [address] | | | [place] [address] | + + + | Home Phone [...] | | | | | [place] [address] | | + + + + + Care Team Providers + +------+ + | Care Tunnel Man Name | Role | Phone | + +------+ + | Chato Matson MD | PCP | | + +------+ + Encounter Details +--------+ + + + + | Date | Type | Department | Care Team | Description | +--------+ + + + + | 10/11/ | Procedure | [facility] [address] | | | | 2017 | [address] | [address] | | | | | | [address] [facility] | | | | | | [place], [place] | | | | | | [address] | | | | | | [phone] | | | +--------+ + + + [...]
--- OUTSIDE RECORDS SUMMARY | ~2017-11-13 | XMS | Encounter Summary ---
Demographics + + + | Address | [address] | | | [place] [address] | + + + | Home Phone | | + + + | Preferred Language | Unknown | + + + | Marital Status | | + + + | Holiness Affiliation | NRP | + + + | Race | White | + + + | Ethnic Group | Not or | + + + Author + + + | Author | [facility] | + + + | Organization | [facility] | + + + | Address | Unknown | + + + | Phone | Unavailable | + + + Support + + + + + | Name | Relationship | Address | Phone | + + + + + | ANNA MCKEON | ECON | [address] | | | | | [place] [address] | | + + + + + Care Team Providers + +------+ + | Care Dredge Boat Engineer Name | Role | Phone | [...] Pharmacy | | | | | | [address] | | | | | | [facility] | | | | | | [place], [place] | | | | | | [address] | | | +--------+ + + + [...]
--- OUTSIDE RECORDS SUMMARY | ~2017-11-13 | XMS | Encounter Summary ---
Demographics + + + | Address | [address] | | | [place] [address] | + + + | Home Phone | | + + + | Preferred Language | Unknown | + + + | Marital Status | | + + + | Bahai Affiliation | NRP | + + + | Race | White | + + + | Ethnic Group | Not or | + + + Author + + + | Author | [facility] | + + + | Organization | [facility] | + + + | Address | Unknown | + + + | Phone | Unavailable | + + + Support + + + + + | Name | Relationship | Address | Phone | + + + + + | ANNA MCKEON | ECON | [address] | | | | | [place] [address] | | + + + + + Care Team Providers + +------+ + | Care Senior Business Process Analyst Name | Role | Phone | + +------+ + | Chato Matson MD | PCP | | + +------+ + Encounter Details +--------+ + + + + | Date | Type | Department | Care Team | Description | +--------+ + + + + | 10/11/ | Procedure | [facility] [address] | | | | 2017 | Pass | [address] | | | | | | [address] [facility] | | | | | | [place], [place] | | | | | | [address] | | | | | | [phone] | | | +--------+ + + + [...]
--- OUTSIDE RECORDS SUMMARY | ~2017-11-13 | XMS | Encounter Summary ---
Demographics + + + | Address | [address] | | | [place] [address] | + + + | Home Phone | | + + + | Preferred Language | Unknown | + + + | Marital Status | | + + + | Yarsani Affiliation | NRP | + + + [...] | | | | | [place] [address] | | + + + + + Care Team Providers + +------+ + | Care Forensic Psychiatrist Name | Role | Phone | + [...] | | 2018 | | Services at [facility] | [place], [place] | Exam | | | | [address] [facility] | [address] | | | | | [facility] | | | | | | Mailcode: [id number] | | | | | | [facility] | | | | | | [place], [place] | | | | | | [address] | | | | | | [phone] | | | +--------+ + + + [...]
--- OUTSIDE RECORDS SUMMARY | ~2017-11-13 | XMS | Encounter Summary ---
Demographics + + + | Address | [address] | | | [place] [address] | + + + | Home Phone [...] | | | | | [place] [address] | | + + + + + Care Team Providers + +------+ + | Care Manager Of Transportation Name | Role | Phone | [...] | | 2018 | | Services at [facility] | [place], [place] | Exam | | | | [address] [facility] | [address] | | | | | [facility] | | | | | | Mailcode: [address] | | | | | | [facility] | | | | | | [place], [place] | | | | | | [address] | | | | | | [phone] | | | +--------+ + + + [...]
--- OUTSIDE RECORDS SUMMARY | ~2017-11-13 | XMS | Encounter Summary ---
Demographics + + + | Address | [address] | | | [place] [address] | + + + | Home Phone [...] + + + | Author | [facility] | + + + | Organization | [facility] | + + + | Address | Unknown | + + + | Phone | Unavailable | + + + Support + + + + + | Name | Relationship | Address | Phone | + + + + + | ANNA MCKEON | ECON | [address] | | | | | [place] [address] | | + + + + + Care Team Providers + +------+ + | Care Journal Clerk Name | Role | Phone | [...] Pharmacy | | | | | | [address] | | | | | | [facility] | | | | | | [place], [place] | | | | | | [address] | | | +--------+ + + + [...]
--- OUTSIDE RECORDS SUMMARY | ~2017-11-13 | XMS | Clinical Summary ---
Demographics + + + | Address | [address] [place] [address] [address] | | | [place] [address] | + + + | Home Phone [...] | | | | | [place] [address] | | + + + + + Care Team Providers + +------+ + | Care Voip Network Engineer Name | Role | Phone | + +------+ + | Chato Matson MD | PP | | + +------+ + Source Comments EULOGIO is fully live on both [facility] and [facility] InPatient.[facility] Allergies No Known Allergies Current Medications [...] therapy | 10/17/2017 | | defibrillator (COMPUTER AIDED DESIGN TECHNICIAN-D) | | + + + | [...] edema. 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 | | -secretions improving, cough strong [...] stayExtubated 03/22, started on | | NC R4Hnmce infusion begun 03/22 for daily goal -1 [...] during cath | | lab procedure at [facility]. 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 | | [...] | and thus a | | | COMPUTER AIDED DESIGN TECHNICIAN-D was | | | placed. | | [...] | | EP 2/9, | | | COMPUTER AIDED DESIGN TECHNICIAN-D | | | -- | | | [...] | be noted on | | | COMPUTER AIDED DESIGN TECHNICIAN-D and | | | could | | [...] | on. EGD at | | | [facility] | | | on 10/05 | | [...] | | # Pre | | | [id number] | | | 5.6 on | | [...] | Wound check | | | from COMPUTER AIDED DESIGN TECHNICIAN-D | | | | | | placement2. [...] | | | Hansa | | | [place], | | | ACNP. Go | | [...] | | | CLINICS | | | [id number] | | | [address] | | | [address] | | | [place] | | | [id number] | | | [phone] | | | Hansa | | | [place], | | | ACNP. Go | | [...] | | | CLINICS | | | [id number] | | | [address] | | | [address] | | | [place] | | | [phone] | | | [phone] | | | [...] | | 25 mg | | | [id number] | | | y known as: | [...] | CR 30 mg | | | [id number] | | | y known as: | [...] | | mm Resolute | | | [place] | | | drug-elutin | | | [...] | | | us:Phone: | | | [phone] | | | [phone] | | | Cardiology | | | Division | | | Office | | | | | | [phone] | | | 0 | | | [...] | | | lar | | | Scalf | | | [place] | | | Health & | | [...] | | | HANDY | | | [id number] | | Tejal Pettit MD | | | | | | X / | | | | | | | | /[id number] | | | | | | | | [address] | + +------+--------+ +--------+--------+--------+ Results CAPILLARY BLOOD [...] TESTS [address] | | | [place] [address] | + + + X-RAY CHEST 2 [...] Note | + + | Service Account, Edmodo In Interface - 10/17/2017 7:51 AM PST [...] | + + + | Blood | [facility], CORE [address] [place] [address] | | | [place] [address] | + + + BASIC METABOLIC SET [...] | >60 | >60 mL/min | | GAMBIAN | | | + + + + | EGFR NON | 51 (L) | >60 mL/min | | -GAMBIAN | | | + + + + [...] | + + + | Blood | [facility], CORE [address] | | | [place], [place] [address] | + + + + + | [...] | | ------ CBC (HEMOGRAM) | | ONLY[[id number]] Abnormal Final | | result Please view [...] | Narrative | + + | STUDY: ND CHEST 1 VIEW HISTORY: Evaluated lead placement. COMPARISON: | | STUDY: ND CHEST 1 VIEW FINDINGS: A new left [...] Note | + + | Service Account, Edmodo In Interface - 10/17/2017 7:51 AM PST STUDY: ND CHEST 1 | | VIEWHISTORY: Evaluated lead placement.COMPARISON: STUDY: ND CHEST 1 VIEWFINDINGS: A | | new [...] procedure. | | He is candidate for COMPUTER AIDED DESIGN TECHNICIAN-D since he as class 2 baseline heart failure and currently | | class 3 heart failure with LBBB 152 msec. PROCEDURE ATTENDING: Sophie Darby | | FELLOW: Amarilis Castle MD PROCEDURAL | | DATA: Procedure: New implant Implanted generator professor sculpture: Medtronic | | Implanted leads professor sculpture: Medtronic Radha-procedure Anticoag: None Presenting | | rhythm: NSR Existing device under advisory? No Pacemaker dependent: No | | Method of sedation: Conscious sedation - Anesth provider Response to | | sedation: Normal Fluoroscopy time (see log): 45-47 minutes | | MEDICATIONS: See anesthesia log and production laborer log INTAKE AND OUTPUT: 1000 ml [...] DEVICE INFORMATION: | | BiV-ICD pulse generator: Soda Dialyzer: Medtronic Model number: [id number] | | Serial number: [id number] RA lead: Soda Dialyzer: Medtronic Model number: | | [id number] Serial number: [id number] RV lead: Soda Dialyzer: Medtronic | | Model number: [id number] Serial number: [id number] CS lead: | | Soda Dialyzer: Medtronic Model number: [id number] Serial number: [id number] | | MEASURED PARAMETERS: RA lead: P [...] Fellow Division of Cardiovascular Medicine [facility] | | Pager [phone] Pursuant to Federal Medicare requirements, I certify that I, Sophie | | Wilner BREWER, was present for the entire procedure, performed all critical elements, and | | participated directly in the generation of this report. Sophie Darby MD | | Cardiovascular Medicine - Electrophysiology [facility] Cardiovascular Scalf at [facility] | | | + + VBG-FULL [...] Laboratory | + + + | | [facility], POINT OF [facility] TESTS [address] | | | [place] [address] | + + + INTRAPROCEDURE IMAGING (10/16/2017 [...] + | | [facility] [address] [place] [address] | | | [place] [address] | + + + CARDIAC CATH (10/15/2017 2:11 PM) + + | Procedure Note | + + | Tejal Modi MD - 10/15/2017 2:11 PM PST DATE OF PROCEDURE:October 15, | | 2018PERFORMING PHYSICIAN:Tejal Modi [facility] ATTENDING:Mike Bray MDThere was no [...] 110 mL.FLUOROSCOPY TIME:17.8 minutes.FLUOROSCOPY | | DAP:7406.0 [id number]:1. Left ventricular pressure 91/23 mmHg.2. Aortic | | pressure 93/72 mmHg, mean of 80 mmHg. 3. Heart rate 71 beats per minute.ACCESS:1. | | 14-Jamaican Impella sheath in the right femoral artery.2. 7-Jamaican sheath in the left | | femoral artery.3. 6-Jamaican sheath in the right femoral vein.ESTIMATED BLOOD [...] | micropuncture technique and ultrasound guidance, a 5-Jamaican sheath was inserted in the | | right femoral artery and a 6-Jamaican sheath was inserted in the right femoral vein. Two | | Perclose devices were deployed in the preclosure method and then the 5-Jamaican sheath was | | exchanged over an Amplatz stiff wire for the 14-Jamaican Impella sheath. A 5-Jamaican | | angled pigtail catheter was then [...] technique and ultrasound guidance and placed a 7-Jamaican sheath. A 7-Jamaican XB 3.5 guide | | catheter was [...] and pulled out of the body. The 14-Jamaican sheath was | | then removed and [...] with one 3.0 x 18 mm Resolute [place] drug-eluting stent. Successful | | percutaneous coronary [...] | | 10/15/2017 13:25:02DT: 10/15/2017 14:11:10Job #: [id number] | |2. Lesion type: C. | |3. [...] with one 3.0 x 18 mm Resolute [place] drug-eluting stent. Successful percutaneous coronary transluminal angio [...] |BCN/MODL | | | | | | /[id number] | + + ACT, POC-CCL ONLY (10/15/2017 [...] | + + + | Blood | [facility], POINT OF CARE TESTS [address] | | | [place] [address] | + + + LINING PARTS SEWER EMERGENT/IMMEDIATE PROCEDURE (10/15/2017 11:00 AM) + + | Narrative | + + | Procedure performed in the Cardiac Spring Coiling Machine Setter. See procedure notes for details. | + [...] | + + + | Blood | [facility], CORE [address] | | | [place], [place] [address] | + + + + + | [...] Laboratory | + + + | | [facility] RADIOLOGY VOICE RECOGNITION | + + [...] | | significant tracer uptake within the wzz-yv-kezrjf anterior wall/interventricular septum | | and apex [...] Note | + + | Service Account, Edmodo In Interface - 10/14/2017 5:47 PM PST [...] significant tracer | | uptake within the ryp-gz-upoxxn anterior wall/interventricular septum and apex | | corresponding to same non-perfused areas seen on myocardial rest perfusion scan, | | compatible with nonviable myocardium in these regions. I have personally reviewed the | | images and, if necessary, edited the report. I agree with the report as now presented. | |No significant tracer uptake within the srs-zi-ebfomb anterior wall/interventricular septum and apex corresponding to [...] Laboratory | + + + | | [facility] RADIOLOGY VOICE RECOGNITION | + + + [...] Note | + + | Service Account, RadiSafecare Res In Interface - 10/13/2017 5:30 PM [...] | + + + | Blood | [facility], CORE [address] | | | [place] [address] | + + + + + | [...] Narrative | + + | Report ====== Center Sales And Service Associate: Rodríguez Fortune ([id number]), shubham lockhart Broadcast Technician: shubham | | richy Fellow: shubham lockhart Animal Keeper Head: shubham lockhart Viewer: shubham | | richy Report Date: 16 Oct 2017, 09:22:25 [facility] Patient ------- Patient: | | RON MCKEON Acc #: [id number] | | Ethnicity: N Status: Final Report [...] Formula) | | Image Quality: Good Scanner Soda Dialyzer: [employer] Scanner Model: [facility] | | Scanner Serial Number: [id number] Scanner Software Platform: 5.3.15.3.1.0 Staff: Rodríguez | | Tong Modality: MR Indication Name: routine Protocol Name: CMR W Flows WO Contrast | | Findings -------- Non-cardiac findings were reviewed by Dr. Curtis. This exam was | | terminated prematurely and is lmiited to product support sales representative images. There are bilateral pleural | | [...] - 10/16/2017 9:22 AM PST | | Report======Center Sales And Service Associate: Rodríguez Tong ([id number]), shubham Rodriguezalyst: shubham | | richyFellow: shubham Garciaechnician: shubham Johniewer: shubham | | jadarkomReport Date: 16 Oct 2017, 09:22:25 PSTPatient-------Patient: RON MCKOEN | | JMedical Record Number: [id number] ID: [id number] #: [id number]: NStatus: | | Final ReportReport Number: [id number]: MaleBirthdate: 1955 (61 yrs)Study Date: 05 | | Oct 2017Study Description: CMR with Flows with ContrastReferring Physician: KHURRAM | | HEITNERBlood Pressure: /Heart rate:Height (cm): 0Weight (kg): 89BMI (kg/m ): 0BSA | | (m ): 0 (Mosteller Formula)Image Quality: BARRX MedicalcanTagTagCity Soda Dialyzer: Vox[employer] | | [employer] Model: [employer] Serial Number: [id number] Software Platform: | | 5.3.15.3.1.0Staff: Rodríguez FortuneModality: MRIndication Name: routineProtocol Name: | | CMR W Flows WO ContrastFindings--------Non-cardiac findings were reviewed by | | Fusmoon.This exam was terminated prematurely and is lmiited to product support sales representative images.There are | | bilateral pleural effusions. [...] Formula) | |Image Quality: Good | |Scanner Soda Dialyzer: [employer] | |Scanner Model: [facility] | |Scanner Serial Number: [id number] | |Scanner Software Platform: 5.3.15.3.1.0 | |Staff: Rodríguez Fortune | |Modality: MR | |Indication Name: routine | |Protocol Name: CMR W Flows WO Contrast | |Findings | |-------- | |Non-cardiac findings were reviewed by Dr. Curtis. | |This exam was terminated prematurely and is lmiited to product support sales representative images. | |There are bilateral pleural effusions. [...] | + + + | Sputum | [facility] [address] [address] [place], [place] | | | [address] | + + + + + | Narrative | + + | Culture Report: This culture has been discontinued. Gram Stain: Squamous | | epithelial cells in the specimen indicate the presence of significant oropharyngeal | | contamination. CRITICAL RESULTS Results called to and verified by: Vicki | | Amy at phone # [facility] on: 10/12/2017 8:10:02 AM PST by: [id number] | + + HEMOGLOBIN A1C, BLOOD (10/11/2017 [...] + + | Blood | [facility] IMM + COAG [address] | | | [place] [address] | + + + + + | Narrative | + + | Alternate forms of testing such as fructosamine should be considered for | | monitoring half-way glycemic control in patients with: Increased red cell turnover, | | certain hemoglobinopathies (e.g., HbS, HbE, HbC and thalassemia syndromes), anemias, | | blood loss, chronic liver disease and hemochromatosis (artefactually low HbA1c); iron | | deficiency anemia (artefactually high HbA1c due to enhanced glycation of hemoglobin). | | Alternate forms of testing such as fructosamine should be considered for | | monitoring dedicated 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 driver glycemic control in patients with: Increased red [...] + | | [facility] [address] [place] [address] | | | [place] [address] | + + + + + | Narrative | + + | [facility] Adult Echocardiography [facility] | | [address] [place], [place] [address] Ph: | | Pt Name: RON MCKEON Study | | Date/Time 10/11/2017 / 11:47:35 AM | | Most recent prior: 03/30/2017 Acc #: [id number] No. previous | | echos: 4 : 1955 61 years Heart Rate: 84 bpm | | Height: 69.0 in Blood Pressure: 115/68 mm/Hg | | Weight: 196.0 lb Gender: M | | BSA: 2.05 m2 Order ID: [id number] | | Technical Instructor: Shahab Sutton [facility] Referring Provider: Kimmy Low Patient [...] use disorder who presents on transfer from [place] for consideration of | | complex PCI [...] | Wall Scoring: Report electronically signed by: [id number] Khurram Bedoya MD | | (10/11/2017, 12:59:49 PM) Final (Updated) | + + + + | Procedure Note | + + | Interface, Ecg Results - 10/11/2017 1:00 PM [facility] | | [facility] Echocardiography Laboratory [address] [place] [address] | | [place], [place] [address] Pt Name: RON Chaudhary | | MIKE Study Date/Time 10/11/2017 / 11:47:35 AMMRN: [id number] Most | | recent prior: 03/30/2017Acc #: [id number] No. previous echos: 4DOB: | | 1955 61 years Heart Rate: 84 bpmHeight: 69.0 in Blood | | Pressure: 115/68 mm/HgWeight: 196.0 lb Gender: MBSA: | | 2.05 m2 Order ID: [id number] Technical Instructor: Shahab Sutton RDCSReferring | | Provider: Kimmy [...] use disorder who presents on transfer from [place] | | for consideration of complex PCI [...] Ao (prox) | | 3.70 cm 18.1 mm/h9Rvcpefgklk of chamber size and geometry is accomplished | | through the incorporation of linear, volumetric, and indexed values Wall Scoring: Report | | electronically signed by: [id number] Khurram Bedoya MD (10/11/2017, 12:59:49 PM) | [...] | | | |Report electronically signed by: [id number] Khurram Bedoya MD (10/11/2017, 12:59:49 | |PM) [...] | + + + | Blood | [facility], CORE [address] | | | [place] [address] | + + + + + | [...] | >60 | >60 mL/min | | GAMBIAN | | | + +---------+ + | EGFR NON | >60 | >60 mL/min | | -GAMBIAN | | | + +---------+ + | [...] | + + + | Blood | [facility], CORE [address] | | | [place] [address] | + + + + + | [...] + | Blood | [facility], CORE [address] | | | [place] [address] | + + + + + | [...]
--- OUTSIDE RECORDS SUMMARY | ~2017-11-13 | XMS | Encounter Summary ---
Demographics + + + | Address | [address] | | | [place] [address] | + + + | Home Phone [...] | | | | | [place] [address] | | + + + + + Care Team Providers + +------+ + | Care Meat Service Team Member Name | Role | Phone [...] | 2018 | | Services at [facility] | [place], [place] | Exam | | | | [address] [facility] | [address] | | | | | [facility] | | | | | | Mailcode: L340 | | | | | | [facility] | | | | | | [place], [place] | | | | | | [address] | | | | | | [phone] | | | +--------+ + + + [...]
--- OUTSIDE RECORDS SUMMARY | ~2017-11-13 | XMS | Encounter Summary ---
Demographics + + + | Address | [address] | | | [place] [address] | + + + | Home Phone [...] | | | | | [place] [address] | | + + + + + Care Team Providers + +------+ + | Care Corduroy Cutter Operator Name | Role | Phone | [...] Pharmacy | | | | | | [address] | | | | | | [facility] | | | | | | [place], [place] | | | | | | [address] | | | +--------+ + + + [...]
--- OUTSIDE RECORDS SUMMARY | ~2017-11-13 | XMS | Encounter Summary ---
Demographics + + + | Address | [address] | | | [place] [address] | + + + | Home Phone [...] | | | | | [place] [address] | | + + + + + Care Team Providers + +------+ + | Care Summer Intern Name | Role | Phone | [...] Pharmacy | | | | | | [address] | | | | | | [facility] | | | | | | [place], [place] | | | | | | [address] | | | +--------+ + + + [...]
--- OUTSIDE RECORDS SUMMARY | ~2017-11-13 | XMS | Encounter Summary ---
Demographics + + + | Address | [address] | | | [place] [address] | + + + | Home Phone [...] | | | | | [place] [address] | | + + + + + Care Team Providers + +------+ + | Care Geodetic Advisor Name | Role | Phone | [...] | | | | | (HCC) | [place], [place] | for Health | | | | | Stenosis of | [phone] | and Healing | | | | | coronary | Phone: | [place], [place] | | | | | artery | [phone] | [address] | | | | | stent, | Fax: | Phone: | | | | | initial | [phone] | [phone] | | | | | encounter | | Fax: | | | | | Procedures | | [phone] | | | | | CONSULT TO [...] + | 10/10/ | Hospital | [address] | Khurram Bedoya | | | 2018 - | Encounter | [address] | MD K[address] | | | | | [address] [place] [address] | [address] | | | 10/17/ | | [place], [place] | [place], [place] | | | 2018 | | [address] | [phone] | | | | | [phone] | [phone] | | | | | | | [...] Referring Physician & Institution: Other Dictation Primary/Outpatient Senior Engineering Specialist: Dr Jamal Guerrero MD Inpatient Attending Physician: Khurram Bedoya MD Author/Discharging Provider: LALA SCHOFIELD PA-C Admission Date: 10/10/2017 Discharge Date: 10/17/2017 Active Hospital Problems 1) *NSTEMI (non-ST elevated myocardial infarction) (HCC) 2) Coronary 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 3) Stenosis of coronary artery stent 4) Ischemic cardiomyopathy 5) Chronic systolic congestive heart failure (HCC) 7) Encounter for insertion of cardiac resynchronization therapy defibrillator (ANIMAL RESEARCHER-D) 8) Paroxysmal atrial flutter (HCC) 9) Influenza, [...] 1) EP study with VT induction 2) ANIMAL RESEARCHER-D implantation Reason For Admission: Consideration of complex PCI vs CABG for in-stent restenosis of LCx and LM/LAD stents Hospital Course: Please see H&P for hospital course at [facility] prior to transfer to [facility]. Ron Mckeon is a 61 year old [...] treatment who was admitted in transfer from [facility] on 10/11 for consideration of PCI vs [...] support--had one 3.0 x [address] ug-eluting stent placed in ostial L [...] 10/16. VT was induced, therefor e a ANIMAL RESEARCHER-D was implanted. He is discharging home in good condition with follow up in 1 week w ith his Senior Engineering Specialist. The following problems were addressed this [...] uenza and underwent a coronary angiogram at [facility] which revealed in stent re-stenosis of both LM into LAD and LCx stents, mild disease of RCA. Transferred to [facility] for further onel luation. CTS was consulted for consideration of CABG vs complex PCI. Due to nonviable myocardium archie wn on cardiac PET and resting NM perfusion study, PCI was chosen over CABG. On 10/15 he underw ent angiography/PCI with impella support--had one 3.0 x 18 mm Resolute [place] drug-eluting chery nt placed in ostial L [...] II, Stage C. Etiology ischemic. TTE at [facility] showed EF 30-35%, mildly reduced RV function, [...] the past --ICD: placed by EP 10/16, ANIMAL RESEARCHER-D -- will need 1 week f/u for wound check, then 1 month device check with EP -- f/u with outpatient dust brush assembler 2-4 weeks # Paroxysmal Aflutter Noted Aflutter with RVR at admission in [facility]; treated with amiodarone infusion. He w as transitioned to oral amiodarone and maintained normal rhythm. Given that the aflutter occ urred in setting of severe sepsis, will not continue amiodarone or warfarin. If he has recur rent arrhythmia, this will be noted on ANIMAL RESEARCHER-D and could consider anticoagulation at that time . However, he requires DAPT and has a possible history of recent GIB, so triple therapy shou ld be avoided if not necessary --rate control: metoprolol as above --anticoagulation: holding warfarin for now given DAPT and h/o GI B. Discuss further with outpatient dust brush assembler. May consider holding anticoagulation unless he demonstrates recurrent arrhythmia # Influenza type A - resolved # Community acquired pneumonia # Severe sepsis with shock, resolved Pt presented to [facility] 10/03 found to be Flu Apositive with [...] sepsis management , fluid resuscitation. EGD at [facility] on 10/05 showed gastritis, duodenitis, linear ulcerations [...] first post-hospitalization visit: 1. Wound check from ANIMAL RESEARCHER-D placement 2. Consider restarting lisinopril if BPs improve and Cr is stable 3. Instructed pt to restart metformin on 08/18 but reevaluate based on Cr Schedule the following appointment(s) when you get home KULWINDER Stevens. Go on 10/19/2017. Why: at 1:15pm for heart failure follow up, to re-check labwork, and to have your wound ch ecked Contact information HEART [address] [address] KULWINDER Stevens. Go on 11/11/2017. Why: at 9:30am for cardiology follow up and to have your device checked Contact information HEART [address] [address] Medication List START taking these medications Childrens [...] Resume on 10/19. Indications: type 2 diabetes [facility] metoprolol succinate 25 mg Tb24 Commonly [...] 0%. 8.Stent: 3.0 x 18 mm Resolute [place] drug-eluting stent. Lesion #2: 1.Lesion location: Distal [...] circumflex. One 3.0 x 18 mm Resolute [place] drug-eluting stent. Successful percutaneous coronary transluminal angiop [...] ths. You should be cleared by your dust brush assembler prior to returning to driving. If you [...] How to Contact us: Cardiology Division Office [phone] Cardiology Patient Phone Line EDUIN Shepherd Dr[address] Dr., Dr., PA-C Connie Barber, NP Karen Paladino, RN Margaret Kleist, RN Evenings or weekends: Ask for on-call dust brush assembler Drug Eluting Stent 1. Please take Plavix (clopidogrel) everyday which helps to keep the stent open. You need t o take it every day for one year and do not stop unless you are told to by your dust brush assembler . 2. Take an aspirin 81 mg once daily indefinitely. 3. You were referred for cardiac rehab and should start now that you have had a stent place d. 4. Follow up with your dust brush assembler within 2-4 weeks. 5. No elective surgeries [...] smoker.Patient counseled on importance of smoking cessation [facility] Last vitals: BP: 101/65 (10/17/17 1144) Pulse: 80 (10/17/17 1144) Resp: 18 ( 1144) Weight: 88.4 kg (194 lb 14.2 oz) (10/17/17 0221) Discharging Provider: LALA SCHOFIELD PA-C, Cardiovascular Medicine Attending Physician: Khurram Bedoya MD, Cardiovascular Medicine Lala Schofield PA-C Instructor of Cardiovascular Medicine [facility] [place] [facility] [employer] I spent 36 minutes in coordination of care and aaoc-ex-vpvc with the patient and/or their s urrogate in which the problems above were discussed Associated attestation - Khurram Bedoya MD - 10/17/2017 3:22 PM PSTCardiology [facility] I have seen and examined Mr. Mckeon and discussed the [facility]. I reviewed the practitioner's note above and agree with the documented f indings and plan of care. KHURRAM BEDOYA MD Director of the [facility] Hypertrophic Cardiomyopathy Loan Officer of Echocardiography Water Reuse Program Managerlocum tenens psychiatrist Division of Cardiovascular Medicine in this encounter Discharge Instructions The following attachments cannot be sent through Care Everywhere.WOUND CHECK (TANZANIAN)ICD ( IMPLANTABLE CARDIOVERTER-DEFIBRILLATOR): POST-OP (TANZANIAN)PAIN POST-SURGERY: ACUTE (TANZANIAN) OPIOIDS: SAFE USE (TANZANIAN)OPIOIDS: STORAGE AND DISPOSAL: GENERAL INFO (TANZANIAN)in this enco unter Medications at Time of [...] Information: Implant date: 10/16/17 BiV-ICD pulse generator: Vba Developer: [employer] Model number: [id number] Serial number: [id number] RA lead: Vba Developer: Medtronic Model number: [id number] Serial number: [id number] RV lead: Vba Developer: Medtronic Model number: [id number] Serial number: [id number] CS lead: Vba Developer: Medtronic Model number: [id number] Serial number: [id number] ICD PROGRAMMING: Bradycardia Parameters: Mode: DDD Lower rate limit: 50 Upper rate limit: 130 Output (A): 3.5 V at 0.4 ms Sensitivity (A): 0.3 mV Output (RV): 3.5 V at 0.4 ms Sensitivity (RV): 0.3 mV Output (CS): 2.0 V at 0.4ms Tachycardia Parameters: VT zone: 177-200 Therapies: Monitor VF zone: >200 bpm Therapies: 35 J x 6 PACING PERCENTAGE: AP: <0.1% LIFE CONSULTANT: 98.3% EPISODES SINCE IMPLANT: none. TODAY'S TESTING [...] and Device check in one month at [facility] device clinic. I have reque sted our [...] MD Electrophysiology Fellow Division of Cardiovascular Medicine [facility] Pager [phone] Associated attestation - Lauro Jorgensen MD - 10/18/2017 12:04 PM PSTElectrophysiolog y Attending I have seen and examined Mr. Mckeon and discussed the patient's management with the resi dent and/or fellow. I reviewed the housestaff note above and agree with the documented find ings and plan of care. He is doing well. For regular device follow up. Lauro Jorgensen M.D. Director, Electrophysiology Circular Knife Cutter Machineprojector booth operator [facility] [place] [phone] Amarilis Castle MD - 10/17/2017 10:53 AM [...] hs. You should be cleared by your dust brush assembler prior to returning to driving. ? If [...] through the full body scanner at the [facility] or, but only after [...] How to Contact us: Cardiology Division Office [phone] Cardiology Patient Phone Line EDUIN [address] [...] 1) EP study with VT induction 2) ANIMAL RESEARCHER-D Indication for the procedure: Ischemic cardiomyopathy with [...] MD Electrophysiology Fellow Division of Cardiovascular Medicine [facility] Pager [phone] Lala Schofield PA-C - 10/16/2017 2:07 PM PSTFormatting of this note may be different fro m the original. IP Cardiology Progress Note Date: 10/16/2017 Hospital Day: 6 Attending Senior Engineering Specialist: Khurram Bedoya MD Provider: LALA SCHOFIELD PA-C Primary Care Provider: Chato Matson MD Outpatient Senior Engineering Specialist: Dr Jamal Guerrero MD ID:Ron Mckeon is a 61 year old male with past medical history of CAD s/p anterior CHERY OK 03/2017 with cardiogenic shock s/p PCI with ANY to LM/LAD and LCx with ECMO support, systo lic heart failure (EF 20-25%), ischemic cardiomyopathy, hypertension, Atrial flutter, prior tobacco use, recent JAVON thrombus on anticoagulation, Influenza A with septic shock (10/03) re quiring intubation and mechanical ventilation, HAP on treatment who was admitted in transfer from [facility] on 10/11 for consideration of PCI vs [...] cannot appreciate murmur and sounds regular. J LIFE CONSULTANT not above clavicle at 90 degrees Gastrointestinal: [...] found for: FREET4, TSH, TPOAB, THYROGLOB, THYROGLOBAB, [id number] Lab Results Component Value Date A1C 5.9 [...] 8. Stent: 3.0 x 18 mm Resolute [place] drug-eluting stent. Lesion #2: 1. Lesion location: [...] uenza and underwent a coronary angiogram at [facility] which revealed in stent re-stenosis of both LM into LAD and LCx stents, mild disease of RCA. Transferred to [facility] for further onel luation. CTS was consulted for consideration of CABG vs complex PCI. Due to nonviable myocardium archie wn on cardiac PET and resting NM perfusion study, PCI was chosen over CABG. On 10/15 he underw ent angiography/PCI with impella support--had one 3.0 x 18 mm Resolute [place] drug-eluting chery nt placed in ostial L [...] II-III, Stage C. Etiology ischemic. TTE at [facility] showed EF 30-35%, mildly reduced RV function, [...] check with EP -- f/u with outpatient dust brush assembler 2-4 weeks # Paroxysmal Aflutter Noted Aflutter with RVR at admission in [facility]; treated with amiodarone infusion. Now maintaining SR on oral amio. CHADS-VASC 3, HAS-BLED 3. Was previously on heparin infusion fo r NSTEMI but this has been stopped and AC was not started in anticipation of PCI. --rate control: carvedilol as above --rhythm control: continue amiodarone 200 mg daily for now, to be reassessed b y outpatient dust brush assembler --anticoagulation: holding warfarin for now given DAPT and h/o GIB. Discuss fu rther with outpatient dust brush assembler. May consider holding anticoagulation unless he demonstra janeth recurrent arrhythmia # Influenza type A - resolved # Community acquired pneumonia # Severe sepsis with shock, resolved Pt presented to [facility] 10/03 found to be Flu A positive [...] sepsis management , fluid resuscitation. EGD at [facility] on 10/05 showed gastritis, duodenitis, linear ulcerations [...] patient was interviewed and examined by attending dust brush assembler, Dr. Khurram Bedoya MD , who is in agreement with above described findings, assessment and plan. LALA SCHOFIELD PA-C Cardiovascular Medicine [facility] Pager [phone] I spent 36 minutes in coordination of care and mceu-nh-khjd with the patient and/or their surrogate in [...] Continue current post-cath car tom SUERO MD [facility] [address] [place] [phone] Ruth Ann Carvajal PA-C - 10/15/2017 3:36 [...] circumflex. One 3.0 x 18 mm Resolute [place] drug-eluting stent. Successful percutaneous coronary transluminal angiopla [...] circ and LAD. EPS v-stim with possible ANIMAL RESEARCHER-D tomorrow (QRS today is 152 atypical LB BB). See yesterdays attestation Sophie Darby MD Cardiovascular Medicine - Electrophysiology [facility] [place] at [facility] Arya Low MD - 10/15/2017 1:05 PM PSTCARDIOLOGY PRELIMINARY PROCEDURE NOTE Primary Care Provider: Chato Matson MD Referring Provider: Other Dictation Vender Staff: Tejal Modi M.D. Procedure(s): 1. Coronary angiography 2. Percutaneous coronary intervention 3. Left heart catheterization 4. Impella placement and removal 5. Moderate conscious sedation Indications: Unstable angina, planned LM intervention Access: 14-Guamanian RFA 6-Guamanian RFV 7-Guamanian LFA Post Procedure Access: No evidence of [...] Note Date: 10/15/2017 Hospital Day: 5 Attending Senior Engineering Specialist: Khurram Bedoya MD Provider: LALA SCHOFIELD PA-C Primary Care Provider: Chato Matson MD Outpatient Senior Engineering Specialist: Dr Jamal Guerrero MD ID:Ron Mckeon is a 61 year old male with past medical history of CAD s/p anterior CHERY OK 03/2017 with cardiogenic shock s/p PCI with ANY to LM/LAD and LCx with ECMO support, systo lic heart failure (EF 20-25%), ischemic cardiomyopathy, hypertension, Atrial flutter, prior tobacco use, recent JAVON thrombus on anticoagulation, Influenza A with septic shock (10/03) re quiring intubation and mechanical ventilation, HAP on treatment who was admitted in transfer from [facility] on 10/11 for consideration of PCI vs [...] cannot appreciate murmur and sounds regular. J LIFE CONSULTANT not above clavicle at 90 degrees Gastrointestinal: [...] found for: FREET4, TSH, TPOAB, THYROGLOB, THYROGLOBAB, [id number] Lab Results Component Value Date A1C 5.9 [...] uenza and underwent a coronary angiogram at [facility] which revealed in stent re-stenosis of both LM into LAD and LCx stents, mild disease of RCA. Transferred to [facility] for further onel luation. CTS was consulted for consideration of CABG vs complex PCI. Due to nonviable myocardium archie wn on cardiac PET and resting NM perfusion study, he will proceed with PCI tomorrow with Imp tania support. -- to r and d lab technician today for PCI with impella support [...] II-III, Stage C. Etiology ischemic. TTE at [facility] showed EF 30-35%, mildly reduced RV function, [...] Noted Aflutter with RVR at admission in [facility]; treated with amiodarone infusion. Now maintaining SR [...] sepsis with shock, resolved Pt presented to [facility] 10/03 found to be Flu A positive [...] sepsis management , fluid resuscitation. EGD at [facility] on 10/05 showed gastritis, duodenitis, linear ulcerations [...] patient was interviewed and examined by attending dust brush assembler, Dr. Khurram Bedoya MD , who is in agreement with above described findings, assessment and plan. LALA SCHOFIELD PA-C Cardiovascular Medicine [facility] Pager [phone] I spent 38 minutes in coordination of care and nxoi-kj-tokr with the patient and/or their surrogate in [...] care. KHURRAM BEDOYA MD Director of the [facility] Hypertrophic Cardiomyopathy Loan Officer of Echocardiography Water Reuse Program Managerlocum tenens psychiatrist Division of Cardiovascular Medicine Ruth Ann Carvajal [...] is segmentally abnormal. 10/03/17: TTE @ [facility] Summary The number of aortic [...] CARDIAC CATHETERIZATION: DATE OF PROCEDURE:10/03/[address] [facility] CORONARY ANGIOGRAPHY DOMINANCE: Right LEFT [...] ejection fraction of 24%. This study is itmothy gorized as high risk. Assessment and Plan: [...] about Vf/VT risk in both short and documentation engineer. Given NSVT and EF 30-35%, we will therefore proceed to an EP study with implantation o f an ICD if she has inducible VT. Given atypical LBBB QRS 147 and current functional status 3 (prior 1-2 by report) and concern for lack of EF recovery, we would plan for ANIMAL RESEARCHER with His- bundle lead if needed. Sophie Darby MD Cardiovascular Medicine - Electrophysiology [facility] [place] at [facility] Lala Schofield PA-C - 10/14/2017 11:58 AM PSTFormatting of this note may be different fro m the original. IP Cardiology Progress Note Date: 10/14/2017 Hospital Day: 4 Attending Senior Engineering Specialist: Khurram Bedoya MD Provider: LALA SCHOFIELD PA-C Primary Care Provider: Chato Matson MD Outpatient Senior Engineering Specialist: Dr Jamal Guerrero MD ID:Ron Mckeon is a 61 year old male with past medical history of CAD s/p anterior CHERY OK 03/2017 with cardiogenic shock s/p PCI with ANY to LM/LAD and LCx with ECMO support, systo lic heart failure (EF 20-25%), ischemic cardiomyopathy, hypertension, Atrial flutter, prior tobacco use, recent JAVON thrombus on anticoagulation, Influenza A with septic shock (10/03) re quiring intubation and mechanical ventilation, HAP on treatment who was admitted in transfer from [facility] on 10/11 for consideration of PCI vs [...] Very t hankful of care provided at [facility] Current Inpatient Medications: acetaminophen (TYLENOL) tablet 650 [...] found for: FREET4, TSH, TPOAB, THYROGLOB, THYROGLOBAB, [id number] Lab Results Component Value Date A1C 5.9 [...] uenza and underwent a coronary angiogram at [facility] which revealed in stent re-stenosis of both LM into LAD and LCx stents, mild disease of RCA. Transferred to [facility] for further onel luation. CTS was consulted [...] II-III, Stage C. Etiology ischemic. TTE at [facility] showed EF 30-35%, mildly reduced RV function, [...] Noted Aflutter with RVR at admission in [facility]; treated with amiodarone infusion. Now maintaining SR [...] sepsis with shock, resolved Pt presented to [facility] 10/03 found to be Flu A positive [...] sepsis management , fluid resuscitation. EGD at [facility] on 10/05 showed gastritis, duodenitis, linear ulcerations [...] patient was interviewed and examined by attending dust brush assembler, Dr. Khurram Bedoya MD , who is in agreement with above described findings, assessment and plan. LALA SCHOFIELD PA-C Cardiovascular Medicine [facility] Pager [phone] I spent 42 minutes in coordination of care and hwzh-ww-mncw with the patient and/or their s urrogate [...] care. KHURRAM BEDOYA MD Director of the [facility] Hypertrophic Cardiomyopathy Loan Officer of Echocardiography Water Reuse Program Managerlocum tenens psychiatrist Division of Cardiovascular Medicine Ashleigh Alvarez ACNP - 10/13/2017 8:33 AM PSTFormatting of this note may be differ ent from the original. Cardiology Inpatient Progress Note Date: 10/13/2017 Hospital Day: 3 Primary Care Physician: Chato Matson MD Outpatient Senior Engineering Specialist: Dr Jamal Guerrero MD Attending Senior Engineering Specialist: Khurram Bedoya MD Provider: Ashleigh Alvarez [facility] ID: Ron Mckeon is a 61 [...] who was admitted in transfe r from [facility] on 10/11 for consideration of PCI vs [...] found for: FREET4, TSH, TPOAB, THYROGLOB, THYROGLOBAB, [id number] Lab Results Component Value Date A1C 5.9 [...] exam dated, 03/30/2017, the LVEF is similar. [facility] CXR 10/11/17: FINDINGS: The increased lung volumes. [...] of the duodenum. - No specimens collected. [facility] and selective coronary angiography 10/04/17 summary (full report in CareEverywhere): 1.Systemic hypotension, upper normal left ventricular end-diastolic pressure 2.Severe in-stent stenosis of left main to ostial LAD stent 3.Severe in-stent stenosis ostial proximal left circumflex stent 4.Mild to moderate RCA disease 5.ANNA grade 1 flow to distal LAD 10/03/17 Echo at [facility]: The number of aortic valve leaflets cannot [...] stents # NSTEMI Pt was admitted to [facility] 10/03 with hypoxemic respiratory failure, severe sepsis and s hock thought to be due to influenza type A as below. Noted to have new LBBB, NSTEMI with pea k trop 26. Underwent coronary angiogram at [facility] 10/04 which revealed in stent re-steno sis of both LM into LAD and LCx stents, mild disease of RCA. Transferred to [facility] for further evaluation. TTE showed LV function [...] II-III, Stage C. Etiology ischemic. TTE at [facility] showed EF 30-35%, mildly reduced RV function, mild dilation of ascending aorta. LVEDP 14 mm hg during catheterization 10/04 ( in setting of hypotension). Pt was diuresed at [facility], appears euvolemic on exam. Pt wa s [...] Noted Aflutter with RVR at admission in [facility], treated with amiodarone infusion, main taining SR [...] admitted with acute dyspnea, respiratory failure to [facility] 10/03 found to be Flu A p [...] sepsis management , fluid resuscitation. EGD at [facility] on 10/05 showed gastritis, duodenitis, linear ulcerations [...] patient was interviewed and examined by attending dust brush assembler, Dr. Khurram Bedoya MD , who is in agreement with above described findings, assessment and plan. KULWINDER Grace Instructor of Medicine [facility] [place] Pager [phone] I spent 33 minutes in coordination of care and hcmb-es-uxgv with the patient and/or their s urrogate in which management of CAD, imaging plan and consultation with radiology, revascula rization treatment was discussed Associated attestation - Khurram Bedoya MD - 10/13/2017 2:48 PM PSTCardiology Attendi ng I have seen and examined Mr. Mckeon and discussed the [facility]. I reviewed the practitioner's note above and agree with the documented f indings and plan of care. KHURRAM BEDOYA MD Director of the [facility] Hypertrophic Cardiomyopathy Loan Officer of Echocardiography Water Reuse Program Managerlocum tenens psychiatrist Division of Cardiovascular Medicine Ashleigh Alvarez ACNP - 10/12/2017 8:02 AM PSTFormatting of this note may be differ ent from the original. Cardiology Inpatient Progress Note Date: 10/12/2017 Hospital Day: 2 Primary Care Physician: Chato Matson MD Outpatient Senior Engineering Specialist: Dr Jamal Guerrero MD Attending Senior Engineering Specialist: Khurram Bedoya MD Provider: KULWINDER Grace [...] who was admitted in transfe r from [facility] on 10/11 for consideration of PCI vs [...] found for: FREET4, TSH, TPOAB, THYROGLOB, THYROGLOBAB, [id number] Lab Results Component Value Date A1C 5.6 [...] exam dated, 03/30/2017, the LVEF is similar. [facility] CXR 10/11/17: FINDINGS: The increased lung volumes. [...] flow to distal LAD 10/03/17 Echo at [facility]: The number of aortic valve leaflets cannot [...] stents # NSTEMI Pt was admitted to [facility] 10/03 with hypoxemic respiratory failure, severe sepsis and s hock thought to be due to influenza type A as below. Noted to have new LBBB, NSTEMI with pea k trop 26. Underwent coronary angiogram at [facility] 10/04 which revealed in stent re-steno sis of both LM into LAD and LCx stents, mild disease of RCA. Transferred to [facility] for further evaluation. TTE shows LV function [...] II-III, Stage C. Etiology ischemic. TTE at [facility] showed EF 30-35%, mildly reduced RV function, mild dilation of ascending aorta. LVEDP 14 mm hg during catheterization 10/04 ( in setting of hypotension). He was diuresed at [facility], appears euvolemic on exam today. Pt was [...] Aflutter with RVR prior to admission in [facility], treated with amioda rima infusion, maintaining SR [...] admitted with acute dyspnea, respiratory failure to [facility] 10/03 found to be Flu pos itive. [...] sepsis management , fluid resuscitation. EGD at [facility] on 10/05 showed gastritis, duodenitis, linear ulcerations [...] patient was interviewed and examined by attending dust brush assembler, Dr. Khurram Bedoya MD , who is in agreement with above described findings, assessment and plan. Ashleigh Alvarez, [facility] Instructor of Medicine [facility] Pager [phone] I spent 51 minutes in coordination of care and dqol-pr-oija with the patient and/or their s urrogate [...] care. KHURRAM BEDOYA MD Director of the [facility] Hypertrophic Cardiomyopathy Loan Officer of Echocardiography Water Reuse Program Managerlocum tenens psychiatrist Division of Cardiovascular Medicine Lopez Suttonsebastiengeno - 10/11/2017 12:15 PM PSTTransthoracic echocardiogram completed. Final report to follow. in this encounter Plan of Treatment + +--------+ + + | Name | Priori | Associated Diagnoses | Order Schedule | | | ty | | | + +--------+ + + | TECHNICAL SUPPORT TECHNICIAN INT CORONARY ANGIOGRAM | Routin | | Tomorrow for 1 | | | e | | Occurrences starting | | | | | 10/15/2017 until | | | | | 10/15/2017 | + +--------+ + + | TECHNICAL SUPPORT TECHNICIAN EP ICD | Routin | | One [...] [address] | | | [place] [address] | + + + CAPILLARY BLOOD GLUCOSE [...] [address] | | | [place] [address] | + + + X-RAY CHEST 2 VIEW (10/17/2017 7:04 AM) + + + | Specimen | Performing Laboratory | + + + | | [facility] RADIOLOGY VOICE RECOGNITION | + + + [...] | + + + | Blood | [facility], CORE [address] | | | [place] [address] | + + + BASIC METABOLIC SET [...] | >60 | >60 mL/min | | [place] | | | + + + + | EGFR NON | 51 (L) | >60 mL/min | | -[place]AND[place] | | | + + + + [...] | + + + | Blood | [facility], CORE [address] | | | [place] [address] | + + + + + | [...] | | ------ CBC (HEMOGRAM) | | ONLY[[id number]] Abnormal Final | | result Please view [...] procedure. | | He is candidate for ANIMAL RESEARCHER-D since he as class 2 baseline heart failure and currently | | class 3 heart failure with LBBB 152 msec. PROCEDURE ATTENDING: Sophie Darby, | | FELLOW: Amarilis Castle MD PROCEDURAL | | DATA: Procedure: New implant Implanted generator wireless field technician: Medtronic | | Implanted leads wireless field technician: Medtronic Radha-procedure Anticoag: None Presenting | | rhythm: NSR Existing device under advisory? No Pacemaker dependent: No | | Method of sedation: Conscious sedation - Anesth provider Response to | | sedation: Normal Fluoroscopy time (see log): 45-47 minutes | | MEDICATIONS: See anesthesia log and r and d lab technician log INTAKE AND OUTPUT: 1000 ml [...] DEVICE INFORMATION: | | BiV-ICD pulse generator: Vba Developer: Medtronic Model number: [id number] | | Serial number: [id number] RA lead: Vba Developer: Medtronic Model number: | | 5076-52 Serial number: [id number] RV lead: Vba Developer: Medtronic | | Model number: [id number] Serial number: [id number] CS lead: | | Vba Developer: Medtronic Model number: [id number] Serial number: [id number] | | MEASURED PARAMETERS: RA lead: P [...] of Cardiovascular Medicine [facility] | | Pager [phone] Pursuant to Federal Medicare requirements, I certify that I, Sophie | | Wilner BREWER, was present for the entire procedure, performed all critical elements, and | | participated directly in the generation of this report. Sophie Darby MD | | Cardiovascular Medicine - Electrophysiology [facility] | | | + + PROCEDURE NOTE [...] Castle MD MEDICATIONS: See anesthesia log and r and d lab technician | | log FLUIDS: In: 300 [...] | Cardiovascular Medicine [facility] Pager [phone] Pursuant | | to Federal Medicare requirements, I certify that I, Sophie Darby MD, was present for | | the entire procedure, performed all critical elements, and participated directly in | | the generation of this report. Sophie Darby MD Cardiovascular Medicine - | | Electrophysiology [facility] at [facility] | + + VBG-FULL ABL, [...] [address] | | | [place] [address] | + + + INTRAPROCEDURE IMAGING (10/16/2017 [...] [address] | | | [place] [address] | + + + CBC (HEMOGRAM) ONLY [...] | + + + | Blood | [facility], CORE [address] [place] [address] | | | [place] [address] | + + + BASIC METABOLIC SET [...] | >60 | >60 mL/min | | [place] | | | + +---------+ + | EGFR NON | 58 (L) | >60 mL/min | | -[place] | | | + +---------+ + | [...] | + + + | Blood | [facility], CORE [address] [facility] | | | [place] [address] | + + + + + | [...] | | ------ CBC (HEMOGRAM) | | ONLY[[id number]] Abnormal Final | | result Please view [...] [address] | | | [place] [address] | + + + 12 LEAD ECG [...] | + + + | | [facility] [address] [place] [address] | | | [place] [address] | + + + CARDIAC CATH (10/15/2017 2:11 PM) + + | Procedure Note | + + | Tejal Modi MD - 10/15/2017 2:11 PM PST DATE OF PROCEDURE:October 15 | | 2018PERFORMING PHYSICIAN:Tejal Modi [facility] ATTENDING:Mike Bray MDThere was no [...] 110 mL.FLUOROSCOPY TIME:17.8 minutes.FLUOROSCOPY | | DAP:7406.0 [id number]:1. Left ventricular pressure 91/23 mmHg.2. Aortic | | pressure 93/72 mmHg, mean of 80 mmHg. 3. Heart rate 71 beats per minute.ACCESS:1. | | 14-Guamanian Impella sheath in the right femoral artery.2. 7-Guamanian sheath in the left | | femoral artery.3. 6-Guamanian sheath in the right femoral vein.ESTIMATED BLOOD [...] | micropuncture technique and ultrasound guidance, a 5-Guamanian sheath was inserted in the | | right femoral artery and a 6-Guamanian sheath was inserted in the right femoral vein. Two | | Perclose devices were deployed in the preclosure method and then the 5-Guamanian sheath was | | exchanged over an Amplatz stiff wire for the 14-Guamanian Impella sheath. A 5-Guamanian | | angled pigtail catheter was then [...] technique and ultrasound guidance and placed a 7-Guamanian sheath. A 7-Guamanian XB 3.5 guide | | catheter was [...] and a 3.0 x 18 mm Resolute Craftsbury drug-eluting stent was advanced over the | [...] and pulled out of the body. The 14-Guamanian sheath was | | then removed and [...] with one 3.0 x 18 mm Resolute Craftsbury drug-eluting stent. Successful | | percutaneous coronary [...] | | 10/15/2017 13:25:02DT: 10/15/2017 14:11:10Job #: [id number] | |2. Lesion type: C. | |3. [...] |BCN/MODL | | | | | | /[id number] | + + ACT, POC-CCL ONLY (10/15/2017 [...] [address] | | | [place] [address] | + + + ACT, POC-CCL ONLY (10/15/2017 12:17 PM) + +-------+ + | Component | Value | Ref Range | + +-------+ + | ACT, POC CCL | 247 | 90 - 150 | | INTRAPROC | | | + +-------+ + + + + | Specimen | Performing Laboratory | + + + | Blood | [facility], POINT OF CARE TESTS [address] | | | [place] [address] | + + + ACT, POC-CCL ONLY [...] [address] | | | [place] [address] | + + + TECHNICAL SUPPORT TECHNICIAN EMERGENT/IMMEDIATE PROCEDURE (10/15/2017 11:00 AM) + + | Narrative | + + | Procedure performed in the [facility]. See procedure notes for details. | + + CAPILLARY BLOOD GLUCOSE (NO CHG), POC (10/15/2017 9:25 AM) + +---------+ + | Component | Value | Ref Range | + +---------+ + | BLOOD GLUCOSE, POC | 119 (H) | 70 - 99 mg/dL | + +---------+ + + + + | Specimen | Performing Laboratory | + + + | | [facility], POINT OF CARE TESTS [address] | | | [place] [address] | + + + CBC (HEMOGRAM) ONLY [...] | + + + | Blood | [facility], CORE [address] [facility] | | | [place] [address] | + + + BASIC METABOLIC SET [...] 57 (L) | >60 mL/min | | [place] | | | + + + + | EGFR NON | 47 (L) | >60 mL/min | | -[place]ER | | | + + + + [...] | + + + | Blood | [facility], CORE [address] [place] [address] | | | [place], [place] [address] | + + + + + | [...] | | ------ CBC (HEMOGRAM) | | ONLY[[id number]] Abnormal Final | | result Please view [...] | + + + | Blood | [facility], CORE [address] [facility] | | | [place] [address] | + + + + + | [...] Laboratory | + + + | | [facility] [place], POINT OF CARE TESTS [address] | | | [place] [address] | + + + BASIC METABOLIC SET [...] | >60 | >60 mL/min | | [place] | | | + + + + | EGFR NON | 55 (L) | >60 mL/min | | -[place]ER | | | + + + + [...] | + + + | Blood | [facility], CORE [address] [facility] | | | [place] [address] | + + + + + | [...] | + + + | Blood | [facility], CORE [address] [facility] | | | [place] [address] | + + + CBC ONLY (10/14/2017 4:24 AM) + + + | Specimen | Performing Laboratory | + + + | Blood | | + + + + + | Narrative | + + | The following orders were created for panel order CBC ONLY. | | Procedure | | Abnormality Status | | --------- | | ------ CBC (HEMOGRAM) | | ONLY[[id number]] Abnormal Final | | result Please view [...] + + + | | [facility] PO[facility] CARE TESTS [address] | | | [place] [address] | + + + PET CARDIAC METABOLIC [...] | | significant tracer uptake within the hoe-hg-sohmtv anterior wall/interventricular septum | | and apex [...] Note | + + | Service Account, Phanfare In Interface - 10/14/2017 5:47 PM PST [...] significant tracer | | uptake within the fwa-wi-mfrbjn anterior wall/interventricular septum and apex | | corresponding to same non-perfused areas seen on myocardial rest perfusion scan, | | compatible with nonviable myocardium in these regions. I have personally reviewed the | | images and, if necessary, edited the report. I agree with the report as now presented. | |No significant tracer uptake within the bnn-cl-lgrjtd anterior wall/interventricular septum and apex corresponding to [...] + + + | | [facility], POINT OF CARE TESTS [address] | | | [place] [address] | + + + CAPILLARY BLOOD GLUCOSE [...] [address] | | | [place] [address] | + + + CAPILLARY BLOOD GLUCOSE (NO CHG), POC (10/13/2017 4:16 PM) + +---------+ + | Component | Value | Ref Range | + +---------+ + | BLOOD GLUCOSE, POC | 201 (H) | 70 - 99 mg/dL | + +---------+ + + + + | Specimen | Performing Laboratory | + + + | | [facility] [place], POINT OF CARE TESTS [address] | | | [place] [address] | + + + CAPILLARY BLOOD GLUCOSE [...] [address] | | | [place] [address] | + + + CAPILLARY BLOOD GLUCOSE (NO CHG), POC (10/13/2017 3:47 PM) + +---------+ + | Component | Value | Ref Range | + +---------+ + | BLOOD GLUCOSE, POC | 181 (H) | 70 - 99 mg/dL | + +---------+ + + + + | Specimen | Performing Laboratory | + + + | | [facility] [place], POINT OF CARE TESTS [address] | | | [place] [address] | + + + CAPILLARY BLOOD GLUCOSE [...] [address] | | | [place] [address] | + + + CAPILLARY BLOOD GLUCOSE [...] [address] | | | [place] [address] | + + + CAPILLARY BLOOD GLUCOSE (NO CHG), POC (10/13/2017 3:03 PM) + +---------+ + | Component | Value | Ref Range | + +---------+ + | BLOOD GLUCOSE, POC | 153 (H) | 70 - 99 mg/dL | + +---------+ + + + + | Specimen | Performing Laboratory | + + + | | [facility], PO[facility] OF CARE TESTS [address] | | | [place] [address] | + + + CAPILLARY BLOOD GLUCOSE (NO CHG), POC (10/13/2017 2:44 PM) + +---------+ + | Component | Value | Ref Range | + +---------+ + | BLOOD GLUCOSE, POC | 130 (H) | 70 - 99 mg/dL | + +---------+ + + + + | Specimen | Performing Laboratory | + + + | | [facility], POINT OF CARE TESTS [address] | | | [place] [address] | + + + CAPILLARY BLOOD GLUCOSE [...] [address] | | | [place] [address] | + + + CAPILLARY BLOOD GLUCOSE [...] [address] | | | [place] [address] | + + + NM MYOCARDIAL PERFUSION (SPECT) SINGLE AT REST OR STRESS (10/13/2017 11:18 AM) + + + | Specimen | Performing Laboratory | + + + | | [facility] VOICE RECOGNITION | + + + [...] Note | + + | Service Account, Phanfare In Interface - 10/13/2017 5:30 PM PST [...] + + | | [facility] [place], POINT OF CARE TESTS [address] | | | [place] [address] | + + + CBC (HEMOGRAM) ONLY [...] | + + + | Blood | [facility], CORE [address] [facility] | | | [place] [address] | + + + BASIC METABOLIC SET [...] | >60 | >60 mL/min | | [place] | | | + +---------+ + | EGFR NON | 59 (L) | >60 mL/min | | -[place]ER | | | + +---------+ + | [...] | + + + | Blood | [facility], CORE [address] [facility] | | | [place] [address] | + + + + + | [...] | | ------ CBC (HEMOGRAM) | | ONLY[[id number]] Abnormal Final | | result Please view [...] Laboratory | + + + | | [facility], POINT OF CARE TESTS [address] [facility] [address] | | | [place] [address] | + + + CARDIOLOGY (10/13/2017)CARDIOLOGY (10/13/2017)APTT (ACT. PART. THROMBO TIME) (10/12/2017 8 :44 PM) + +-------+ + | Component | Value | Ref Range | + +-------+ + | APTT | 28.7 | 26.0 - 36.0 seconds | + +-------+ + + + + | Specimen | Performing Laboratory | + + + | Blood | [facility], CORE [address] [place] [address] | | | [place], [place] [address] | + + + + + | [...] [address] | | | [place] [address] | + + + MR CARDIAC COMPREHENSIVE W/O CONTRAST (10/12/2017 12:38 PM) + + + | Specimen | Performing Laboratory | + + + | | [facility] CARDIAC IMAGING | + + + + + | Narrative | + + | Report ====== Paving Plant Operator: Rodríguez Fortune ([id number])shubham Video Production Engineer: shubham | | richy Fellow: shubham lockhart R And D Lab Technician: shubham lockhart Viewer: shubham | | richy Report Date: 16 Oct 2017, 09:22:25 PST Patient ------- Patient: | | RON MCKEON Neena Acc #: [id number] | | Ethnicity: N Status: Final Report [...] Formula) | | Image Quality: Good Scanner Vba Developer: Amminex Scanner Model: Ingenia | | Scanner Serial Number: [id number] Scanner Software Platform: 5.3.15.3.1.0 Staff: Rodríguez Fortune Modality: MR Indication Name: routine Protocol Name: CMR W Flows WO Contrast | | Findings -------- Non-cardiac findings were reviewed by Dr. Curtis. This exam was | | terminated prematurely and is lmiited to gem technician images. There are bilateral pleural | [...] - 10/16/2017 9:22 AM PST | | Report======Paving Plant Operator: Rodríguez Fortune ([id number]), shubham Rodriguezalyst: shubham | | Lorena: shubham Beckician: shubham Beckwithwer: shubham | | espinozamRalbertoort Date: 16 Oct 2017, 09:22:25 PSTPatient-------Patient: RON MCKEON | | JMedical Record Number: [id number] ID: [id number] #: [id number]: [id number]: | | Final ReportReport Number: [id number]: MaleBirthdate: 1955 (61 yrs)Study Date: 05 | | Oct 2017Study Description: CMR with Flows with ContrastReferring Physician: KHURRAM | | VIKASHITRADHABlood Pressure: /Heart rate:Height (cm): 0Weight (kg): 89BMI (kg/m ): 0BSA | | (m ): 0 (Mosteller Formula)Image Quality: LendingStandardcanner Vba Developer: [employer] | | Wedo ShoppingScMatthew [facility] Model: ACE*COMM Serial Number: [id number] Software Platform: | | 5.3.15.3.1.0Staff: Rodríguez FortuneModality: MRIndication Name: routineProtocol Name: | | CMR W Flows WO ContrastFindings--------Non-cardiac findings were reviewed by | | Ever.This exam was terminated prematurely and is lmiited to gem technician images.There are | | bilateral pleural [...] Formula) | |Image Quality: Good | |Scanner Vba Developer: [employer]mminex | |Scanner Model: [id number] | |Scanner Serial Number: [id number] | |Scanner Software Platform: 5.3.15.3.1.0 | |Staff: Rodríguez Fortune | |Modality: MR | |Indication Name: routine | |Protocol Name: CMR W Flows WO Contrast | |Findings | |-------- | |Non-cardiac findings were reviewed by Dr. Curtis. | |This exam was terminated prematurely and is lmiited to gem technician images. | |There are bilateral pleural [...] [address] | | | [place] [address] | + + + CBC (HEMOGRAM) ONLY [...] | + + + | Blood | [facility], CORE [address] [place] [address] | | | [place] [address] | + + + APTT (ACT. PART. THROMBO TIME) (10/12/2017 7:01 AM) + + + + | Component | Value | Ref Range | + + + + | APTT | 50.7 (H) | 26.0 - 36.0 seconds | + + + + + + + | Specimen | Performing Laboratory | + + + | Blood | [facility] [address] [facility] | | | [place] [address] | + + + + + | [...] | >60 | >60 mL/min | | [place] | | | + + + + | EGFR NON | 55 (L) | >60 mL/min | | -NEW ZEALANDER | | | + + + + [...] | + + + | Blood | [facility], CORE [address] [facility] [address] | | | [place] [address] | + + + + + | [...] | | ------ CBC (HEMOGRAM) | | ONLY[[id number]] Abnormal Final | | result Please view [...] | + + + | Blood | [facility], CORE [address] [place] [address] | | | [place] [address] | + + + + + | [...] + + + | | [facility], POINT OF CARE TESTS [address] | | | [place] [address] | + + + CAPILLARY BLOOD GLUCOSE [...] [address] | | | [place] [address] | + + + CULTURE, SPUTUM (10/11/2017 5:45 PM) + + + | Specimen | Performing Laboratory | + + + | Sputum | [facility] [address] [place], [place] | | | [address] | + + + + + | Narrative | + + | Culture Report: This culture has been discontinued. Gram Stain: Squamous | | epithelial cells in the specimen indicate the presence of significant oropharyngeal | | contamination. CRITICAL RESULTS Results called to and verified by: Vicki | | Amy at phone # [facility] on: 10/12/2017 8:10:02 AM PST by: [id number] | + + APTT (ACT. PART. THROMBO TIME) (10/11/2017 4:49 PM) + + + + | Component | Value | Ref Range | + + + + | APTT | 39.7 (H) | 26.0 - 36.0 seconds | + + + + + + + | Specimen | Performing Laboratory | + + + | Blood | [facility], CORE [address] [facility] | | | [place] [address] | + + + + + | [...] | + + + | Blood | [facility], CORE [address] [place] [address] | | | [facility] [address] | + + + APTT (ACT. PART. THROMBO TIME) (10/11/2017 12:43 PM) + + + + | Component | Value | Ref Range | + + + + | APTT | 45.6 (H) | 26.0 - 36.0 seconds | + + + + + + + | Specimen | Performing Laboratory | + + + | Blood | [facility] [address] [facility] | | | [place] [address] | + + + + + | [...] | + + + | Blood | [facility], SPECIAL IMM + COAG [address] [facility] | | | [place] [address] | + + + + + | Narrative | + + | Alternate forms of testing such as fructosamine should be considered for | | monitoring documentation engineer glycemic control in patients with: Increased red cell turnover, | | certain hemoglobinopathies (e.g., HbS, HbE, HbC and thalassemia syndromes), anemias, | | blood loss, chronic liver disease and hemochromatosis (artefactually low HbA1c); iron | | deficiency anemia (artefactually high HbA1c due to enhanced glycation of hemoglobin). | | Alternate forms of testing such as fructosamine should be considered for | | monitoring assisted glycemic control in patients with: Increased red [...] | | ------ CBC (HEMOGRAM) | | ONLY[[id number]] Abnormal Final | | result Please view [...] Laboratory | + + + | | [facility] OF CARDIOLOGY [address] [place] [address] | | | [place] [address] | + + + + + | Narrative | + + | [facility] | | [address] [place], [place] [address] Ph: | | Pt Name: RON MCKEON Study | | Date/Time 10/11/2017 / 11:47:35 AM | | Most recent prior: 03/30/2017 Acc #: [id number] No. previous | | echos: 4 : 1955 61 years Heart Rate: 84 bpm | | Height: 69.0 in Blood Pressure: 115/68 mm/Hg | | Weight: 196.0 lb Gender: M | | BSA: 2.05 m2 Order ID: [id number] | | Lion Tamer: Shahab Sutton [facility] Referring Provider: Kimmy Low Patient | | [...] use disorder who presents on transfer from [facility] for consideration of | | complex PCI [...] | Wall Scoring: Report electronically signed by: [id number] Khurram Bedoya MD | | (10/11/2017, 12:59:49 PM) Final (Updated) | + + + + | Procedure Note | + + | Interface, Ecg Results - 10/11/2017 1:00 PM [facility] | | [facility] | | [place], [place] [address] Pt Name: RON Chaudhary | | MIKE Study Date/Time 10/11/2017 / 11:47:35 AMMRN: [id number] Most | | recent prior: 03/30/2017Acc #: [id number] No. previous echos: 4DOB: | | 1955 61 years Heart Rate: 84 bpmHeight: 69.0 in Blood | | Pressure: 115/68 mm/HgWeight: 196.0 lb Gender: MBSA: | | 2.05 m2 Order ID: [id number] Lion Tamer: Shahab Sutton RDCSReferring | | Provider: Kimmy [...] use disorder who presents on transfer from [facility] | | for consideration of complex PCI [...] Ao (prox) | | 3.70 cm 18.1 mm/v8Ynqcitfulp of chamber size and geometry is accomplished | | through the incorporation of linear, volumetric, and indexed values Wall Scoring: Report | | electronically signed by: [id number] Khurram Bedoya MD (10/11/2017, 12:59:49 PM) | [...] | | | |Report electronically signed by: [id number] Khurram Bedoya MD (10/11/2017, 12:59:49 | |PM) [...] Note | + + | Service Account, [facility] Res In Interface - 10/11/2017 1:51 PM [...] | + + + | Blood | [facility], CORE [address] [facility] | | | [place] [address] | + + + CBC ONLY (10/11/2017 6:31 AM) + + + | Specimen | Performing Laboratory | + + + | Blood | | + + + + + | Narrative | + + | The following orders were created for panel order CBC ONLY. | | Procedure | | Abnormality Status | | --------- | | ------ CBC (HEMOGRAM) | | ONLY[[id number]] Abnormal Final | | result Please view [...] | + + + | Blood | [facility], CORE [address] [facility] | | | [place] [address] | + + + + + | [...] | >60 | >60 mL/min | | [place] | | | + +---------+ + | EGFR NON | >60 | >60 mL/min | | -[place]ER | | | + +---------+ + | [...] | + + + | Blood | [facility], CORE [address] [facility] | | | [place] [address] | + + + + + | [...] | + + + | Blood | [facility], CORE [address] [place] [address] | | | [place] [address] | + + + APTT (ACT. PART. THROMBO TIME) (10/10/2017 11:27 PM) + +-------+ + | Component | Value | Ref Range | + +-------+ + | APTT | 29.5 | 26.0 - 36.0 seconds | + +-------+ + + + + | Specimen | Performing Laboratory | + + + | Blood | [facility] [address] [facility] | | | [place] [address] | + + + + + | [...] | + + + | Blood | [facility], CORE [address] [facility] | | | [place] [address] | + + + + + | [...] | | ------ CBC (HEMOGRAM) | | ONLY[[id number]] Abnormal Final | | result Please view [...] | + + + | Blood | [facility] LABORATORY SERVICES, [facility] [address] [facility] | | | [place] [address] | + + + + + | [...] | | [facility] [address] [place] [address] | | | [place] [address] | + + + ORDERS OTHER (10/10/2017)CARDIOLOGY (10/10/2017)CARDIOLOGY (10/10/2017)CARDIOLOGY (10/10/19)in this encounter Visit Diagnoses + + | Diagnosis | + + | NSTEMI (non-ST elevated myocardial infarction) (HCC) - Primary | + + | Acute myocardial infarction, subendocardial infarction, episode of care unspecified | + + | Coronary 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 involving port lions coronary artery of port lions heart, angina | | presence unspecified | [...] Coronary atherosclerosis of unspecified type of vessel, port lions or graft | + + | Paroxysmal atrial flutter (HCC) | + + | Atrial flutter | + + | Chronic systolic congestive heart failure (HCC) | + + | Chronic systolic heart failure | + + | Encounter for insertion of cardiac resynchronization therapy defibrillator (ANIMAL RESEARCHER-D) | + + | Influenza, pneumonia | [...] 12:42 | | | | | Starting [facility] 10/15/17 at 1242, | | PST [...] Units | | | | PRN, Starting [facility] 10/15/17 at 1207, | | PST | | | | | Until Discontinued | | | | | | + +-------+ +--------+---+---+ +---+---+ | | | +---+---+ + +-------+ +--------+---+---+ | heparin 1,000 unit/mL injection | Given | 10/15/2017 | 1,500 | | | | intravenous, INTRAPROCEDURE | | 12:20 | Units | | | | PRN, Starting [facility] 10/15/17 at 1220, | | PST [...] 13:05 | | | | | Starting [facility] 10/15/17 at 1305, | | PST | | | | | Until Discontinued | | | | | | + +-------+ +--------+---+---+ +---+---+ | | | +---+---+ + +-------+ +------+---+---+ | iohexol (OMNIPAQUE) 300 mg | Given | 10/16/2017 | 7 mL | | | | iodine/mL INTRAPROCEDURE PRN, | | 14:27 | | | | | Starting [facility] 10/16/17 at 1427, | | PST [...]
--- OUTSIDE RECORDS SUMMARY | ~2017-11-13 | XMS | Encounter Summary ---
Demographics + + + | Address | [address] | | | [place] [address] | + + + | Home Phone | | + + + | Preferred Language | Unknown | + + + | Marital Status | | + + + | Buddhist Affiliation | NRP | + + + | Race | White | + + + | Ethnic Group | Not or | + + + Author + + + | Author | [facility] | + + + | Organization | [facility] | + + + | Address | Unknown | + + + | Phone | Unavailable | + + + Support + + + + + | Name | Relationship | Address | Phone | + + + + + | ANNA MCKEON | ECON | [address] | | | | | [place] [address] | | + + + + + Care Team Providers + +------+ + | Care Instructional Systems Design Consultant Name | Role | Phone | [...] | 2018 | Encounter | Services at [facility] | | | | | | [address] [facility] | | | | | | [facility] | | | | | | Mailcode: [address] | | | | | | [facility] | | | | | | [place], [place] | | | | | | [address] | | | | | | [phone] | | | +--------+ + + + [...]
[2017-11-13] MEDS ORDERED: NORCO 5-325 TA1 EACH (01:44)
[2017-11-13] MEDS ORDERED: METOPROLOL SUCC25 MG PO (01:45)
[2017-11-13] MEDS ORDERED: NITROSTAT0.4 MG SL (01:47)
[2017-11-13] MEDS ORDERED: PROTONIX40 MG PO (01:47)
[2017-11-13] MEDS ORDERED: LIPITOR80 MG PO (01:48)
--- NOTE | 2017-11-13 04:47 | NUR ---
PATIENT ARRIVED TO THE UNIT VIA STRETCHER. PATIENTS INTAKE COMPLETED. PATIENT AMBULATED A SBA FROM STRETCHER TO HOSPITAL BED. PATIENT ORIENTED TO ROOM AND FLOOR. PATIENT EDUCATED PLANT GENERAL MANAGER LIGHT. PATIENT GIVEN PRN TYLENOL FOR COMPLAINTS OF A HEADACHE. PATIENT PROVIDED WITH A URINAL. PATIENT DENIES ANY QUESTIONS. CALL LIGHT IN REACH.
--- NOTE | 2017-11-13 05:30 | NUR ---
PATIENT ASSESSMENT COMPLETE. PATIENT IS AAOX3. O2 SAT 97% ON 1.5L NC. LUNGS ARE CLEAR IN THE UPPER LOBES BILATERALLY, DIMINISHED IN THE BASES. PATIENT DENIES ANY SOB. STATES "THEY GAVE ME A BREATHING TREATMENT IN THE AMBULANCE AND THAT CLEARED ME RIGHT UP". ABD IS SOFT, LAST BM THIS MORNING BEFORE CALLING THE AMBULANCE. NO URINARY ISSUES. SBA, PATIENT AMBULATES EASILY. USES CANE AT HOME BUT ONLY FOR LONG DISTANCES. TRACE EDEMA NOTED IN LOWER EXTREMITIES BILATERALLY. STANDING WEIGHT DONE AND DOCUMENTED. PATIENT UP TO THE BATHROOM AND BACK IN BED. DENIES ANY NEEDS AT THIS TIME. CALL LIGHT IN REACH. ORIENTED HIM TO THE ROOM AND DISCUSSED MORNING SHIFT REPORT WITH HIM. HE VERBILIZED UNDERSTANDING.
--- NOTE | 2017-11-13 05:48 | NUR ---
PATIENT ARRIVED AROUND 0430 FROM THE ED. AAOX3. LUNGS ARE CLEAR IN UPPER LOBES BILATERALLY AND DIMINISHED IN THE BASES. 1.5L NC. HOB ELEVATED. NO PAIN. SOB WITH ACTIVITY. SBA TO BATHROOM, PATIENT STEADY ON FEET. USES A CANE FOR LONGER DISTANCE WALKING. TRACE EDEMA NOTED IN LOWER EXTREMITIES BILATERALLY. REGULAR DIET. NO NAUSEA. LAST BM THIS MORNING PRIOR TO ADMISSION.
--- NOTE | 2017-11-13 08:09 | NUR ---
DOCTOR AGUSTIN IN THE ROOM TO ASSESS THE PATIENT, PATIENT IS ALERT AND ORIENTED AT THIS TIME AND TELE #3 PLACED ON THE PATIENT AT THIS TIME. HE IS SITTING UP AT THE SIDE OF THE BED EATING BREAKFAST WITH C/O 8/10 NECK PAIN. NORCO 5/325 GIVEN PO AT THIS TIME.
--- NOTE | 2017-11-13 08:54 | NUR ---
DOCTOR AGUSTIN NOTIFIED OF PATIENTS BLOOD PRESSURE AND AM LISINOPRIL HELD, METOPROLOL GIVEN PER HER REQUEST. PATIENT O2 SAT ON 1 L OF OXYGEN AT 84% PATIENT O2 INCREASED TO 3L SAT NOW AT 95%, BOTH DOCTOR VELEZ AND RT NOTIFIED.
[2017-11-13] MEDS ORDERED: GABAPENTIN300 MG PO (10:29)
--- NOTE | 2017-11-13 10:30 | NUR ---
PT'S VS AND I&O'S TAKEN AND DOCUMENTED. PT'S ONLY REQUEST IS A CUP OF COFFEE. GIVEN. PT HAS NO OTHER NEEDS AT THIS TIME. INFORMED PT TO CALL IF HE NEEDS ANYTHING. CALL LIGHT IS IN REACH.
[2017-11-13] MEDS ORDERED: MAPAP500 M1 PO (10:32)
[2017-11-13] MEDS ORDERED: ARTIFICIAL TEAR15 M5 OU (10:33)
[2017-11-13] MEDS ORDERED: ZESTRIL5 MG PO (11:35)
[2017-11-13] MEDS ORDERED: ULTRAM50 MG PO (11:36)
[2017-11-13] MEDS ORDERED: LISINOPRIL5 MG PO (11:37)
[2017-11-13] MEDS ORDERED: VITAMIN D50000 UNI1 PO (11:37)
[2017-11-13] MEDS ORDERED: MELATIN3 MG PO (11:38)
[2017-11-13] MEDS ORDERED: RANITIDINE HCL300 MG PO (11:39)
--- NOTE | 2017-11-13 11:57 | NUR ---
UPDATED ON PATIENT'S PLAN OF CARE, PATIENT DENIES ANY SHORTNESS OF BREATH OR PAIN AT THIS TIME. PATIENT IS VOIDING QUANITY SUFFICIENT AT THIS TIME.
--- NOTE | 2017-11-13 13:19 | NUR ---
PT SITTING IN BED-ALERT AND ORIENTED. FRIENDLY, CONCERNED THAT I WAS COMING FOR LAST RIGHTS. CLEARED THIS UP, HE THEN SEEMED COMFORTABLE WITH ME AND HAD GOOD DISCUSSION. FEELING MUCH BETTER, BUT NOT QUITE READY TO RETURN HOME YET. HAS SOME APPREHENSION ABOUT BREATHING ISSUES. EXTENDED A BLESSING, WILL FOLLOW NEEDED
--- NOTE | 2017-11-13 13:57 | NUR ---
PT IS SITTING UP IN BED WITH CALL LIGHT IN REACH. PT ASKED ABOUT PAIN MEDS, NURSE AWARE. PT DID NOT NEED ANYTHING ELSE AT THE MOMENT
--- NOTE | 2017-11-13 17:06 | NUR ---
PATIENT SITTING UP AT THE SIDE OF THE BED FINISHING UP HIS DINNER. PATIENT VOIDING CLEAR YELLOW URINE, 350 MLS VOIDED AT THIS TIME. PATIENT DENIES NEEDS AT THIS TIME.
--- NOTE | 2017-11-13 18:02 | NUR ---
THIS PATIENT WAS ADMITTED LAST NIGHT AFTER HAVING AN EPISODE OF SHORTNESS OF BREATH. HE REMAINS ON OXYGEN AT 2L PER NASAL CANNULA DUE TO PULMONARY EDEMA. PATIENT HAS RECEIVED LASIX TWICE TODAY 20MG EACH TIME AND HAS VOIDED QUANITY SUFFICIENT. PATIENT IS A STANDBY ASSIST UP TO THE BATHROOM AND IS STEADY ON HIS FEET. HIS LUNGS ARE CLEAR AND HE HAS A PACER/DEFIBULATOR THAT WAS PLACED IN SEPTEMBER OF THIS YEAR.
--- NOTE | 2017-11-13 18:38 | EKG ---
[facility] [address] [facility] [place] [address] Signed Atrial-sensed ventricular-paced rhythm Abnormal ECG When compared with ECG of 03-OCT-2017 06:13, Electronic ventricular pacemaker has replaced Sinus rhythm Confirmed by NEREYDA VELEZ MD ([id number]) on 11/13/2017 6:37:50 PM Electronically Signed By: NEREYDA VELEZ MD 11/13/17 1838 PATIENT NAME: RON MCKEON RACHEL Electrocardiogram DATE OF : 53 PHYSICIAN: NEREYDA VELEZ MD REPORT #: [id number] REPORT IS CONFIDENTIAL AND NOT TO BE RELEASED WITHOUT AUTHORIZATION
--- NOTE | 2017-11-13 19:45 | NUR ---
RECIEVED REPORT FROM DAY SHIFT NURSE. PATIENT RESTING IN BED. C/O NECK PAIN 04/16. ADMINISTERED SCHEDULED TRAMADOL. PATIENT DENIES FURTHER NEEDS. RT IN TO ASSESS. CALL LIGHT IN REACH.
--- NOTE | 2017-11-13 21:04 | NUR ---
PATIENT RESTING AT A DANGLE IN BED. LUNGS ARE CLEAR->DIMINISHED IN BASES. TELE IN PLACE. NO PEDAL EDEMA. NO C/O PAIN AT THIS TIME. STATES HE HAD A "AILIN HORSE" IN HIS L CALF EARLIER BUT IT WENT AWAY WITH MOVEMENT. PATIENT DENIES NEEDS. CALL LIGHT IN REACH.
--- NOTE | 2017-11-13 21:18 | NUR ---
VITALS AND I&OS DONE AND CHARTED. BEDSIDE TABLE AND CALL LIGHT WITHIN REACH. PT NEEDS NOTHING ELSE AT THIS TIME.
--- NOTE | 2017-11-13 22:28 | NUR ---
PT REQUESTED TO TAKE MELATONIN FOR SLEEP HE TAKES IT WHEN HE NEEDS IT AT HOME. NOTIFIED DR. VELEZ AND RECEIVED AN ORDER.
--- NOTE | 2017-11-13 23:11 | NUR ---
PATIENT SLEEPING. NASAL CANNULA IN PLACE. CALL LIGHT IN REACH.
--- NOTE | 2017-11-14 01:08 | NUR ---
patient was sleeping in bed but woke up when he heard me walk in the room to check on him. states he still has neck pain 03/16. tramadol administered along with 1 tab melatonin. nasal cannula in place at 2lpm-o2 at 96-97%. vs obtained. patient denies further needs. call light in reach.
--- NOTE | 2017-11-14 01:41 | NUR ---
REPLACED TELE BATTERY. ASKED PT IF HE NEEDED TO GO TO THE BATHROOM. HE STATED NO NOT YET. HE SAID HE WILL USE THE CALL LIGHT WHEN HE DOES.
--- NOTE | 2017-11-14 03:12 | NUR ---
PATIENT SLEEPING. NASAL CANNULA IN PLACE. CALL LIGHT IN REACH.
--- NOTE | 2017-11-14 04:05 | NUR ---
PATIENT SLEEPING. CALL LIGHT IN REACH.
--- NOTE | 2017-11-14 07:15 | NUR ---
RECIEVED REPORT FROM AUSTIN HAMILTON. PT IS UP IN BED. CONTINUAL PULSE OX IN PLACE. PT TITRATED TO ROOM AIR. TOLLERATING WELL AT THIS POINT. WILL CONTINUE TO MONITOR. SATS ARE 94%. HEART RATE IS 74. RESPITORY RATE WNL. PAIN MEDICATION GIVEN AT 0640. PT IS ON TELE #3. SL LEFT AC. CALL LIGHT WITHIN REACH. REPORTS NO OTHER NEEDS AT THIS TIME.
--- NOTE | 2017-11-14 09:49 | NUR ---
PT IS CURRENTLY USING THE BATHROOM, VITALS WERE TAKEN EARLY BY THE NURSE. PT ASKED FOR MORE COFFEE
[2017-11-14] MEDS ORDERED: TOPROL XL25 MG PO (10:14)
== END 2017-11-14 10:47 | disposition home or self-care (01) ==
LOC: ED 01:28 → MS 01:29
PROVIDERS: ADMIT Internal Medicine
DX: I50.23 Acute on chronic systolic (congestive) heart failure (principal); I25.10 Atherosclerotic heart disease of native coronary artery without angina pectoris; I25.2 Old myocardial infarction; I10 Essential (primary) hypertension; E11.9 Type 2 diabetes mellitus without complications; M46.92 Unspecified inflammatory spondylopathy, cervical region; M46.94 Unspecified inflammatory spondylopathy, thoracic region; E78.00 Pure hypercholesterolemia, unspecified; Z87.891 Personal history of nicotine dependence; Z95.5 Presence of coronary angioplasty implant and graft; Z95.810 Presence of automatic (implantable) cardiac defibrillator; Z79.84 Long term (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 of oral hypoglycemic drugs; Z79.02 Long term (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 of antithrombotics/antiplatelets; Z79.82 Long term (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; Z79.891 Long term (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 of opiate analgesic; Z79.899 Other long term (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
CPT/HCPCS: 36415; 71045; 71260; 80048; 80053; 83880; 84132; 84484; 85025; 85379; 85610; 85730; 93005; 93010; 94762; 96374; 96376; 99285; G0378; Q9967

== ENCOUNTER 2017-12-04 22:03 | Emergency (ER) | payer OTHER ==
[~2017-12-04] VITALS: Ht 175.3 cm; Wt 93.0 kg
--- OUTSIDE RECORDS SUMMARY | ~2017-12-04 | XMS | Encounter Summary ---
Demographics + + + | Address | [address] | | | [place] [address] | + + + | Home Phone | | + + + | Preferred Language | Unknown | + + + | Marital Status | | + + + | Oriental Orthodox Affiliation | NRP | + + + | Race | White | + + + | Ethnic Group | Not or | + + + Author + + + | Author | [facility] | + + + | Organization | [facility] | + + + | Address | Unknown | + + + | Phone | Unavailable | + + + Support + + + + + | Name | Relationship | Address | Phone | + + + + + | ANNA MCKEON | ECON | [address] | | | | | [place] [address] | | + + + + + Care Team Providers + +------+ + | Care Sales Exec Name | Role | Phone | + +------+ + | Chato Matson MD | PCP | | + +------+ + Encounter Details +--------+ + + + + | Date | Type | Department | Care Team | Description | +--------+ + + + + | 10/17/ | Pharmacy | Outpatient Retail | | | | 2018 | Visit | [facility] | | | | | | [address] | | | | | | [facility] | | | | | | [place], [place] | | | | | | [address] | | | +--------+ + + + [...]
--- OUTSIDE RECORDS SUMMARY | ~2017-12-04 | XMS | Encounter Summary ---
Demographics + + + | Address | [address] | | | [place] [address] | + + + | Home Phone | | + + + | Preferred Language | Unknown | + + + | Marital Status | | + + + | Denominational Affiliation | NRP | + + + | Race | White | + + + | Ethnic Group | Not or | + + + Author + + + | Author | [facility] | + + + | Organization | [facility] | + + + | Address | Unknown | + + + | Phone | Unavailable | + + + Support + + + + + | Name | Relationship | Address | Phone | + + + + + | ANNA MCKEON | ECON | [address] | | | | | [place] [address] | | + + + + + Care Team Providers + +------+ + | Care Detailer Furniture Name | Role | Phone | + +------+ + | Chato Matson MD | PCP | | + +------+ + Reason for Visit + + + | Reason | Comments | + + + | Radiology Incomplete | | | Exam | | + + + Encounter Details +--------+ + + + + | Date | Type | Department | Care Team | Description | +--------+ + + + + | 10/12/ | Telephone | Diagnostic Imaging | Rodríguez Peters, | Radiology Incomplete | | 2018 | | Services at [facility] | [place], [place] | Exam | | | | [address] [facility] | [address] | | | | | [facility] | | | | | | Mailcode: [address] | | | | | | [facility] | | | | | | [place], [place] | | | | | | [address] | | | | | | [phone] | | | +--------+ + + + [...] as of this encounter Plan of Treatment + +--------+ + + | Name | Priori | Associated Diagnoses | Order Schedule | | | ty | | | + +--------+ + + | RADIOLOGY CALL BACK | Routin | Encounter for | Expected: 10/14/2017 | | | e | imaging to assess | (Approximate), | | | | myocardial viability | Expires: 11/10/2018 | + +--------+ + + as of this encounter Visit Diagnoses + + | Diagnosis | + + | Encounter for imaging to assess myocardial viability - Primary | + + | Radiological examination, not elsewhere classified | + +"
--- OUTSIDE RECORDS SUMMARY | ~2017-12-04 | XMS | Encounter Summary ---
Demographics + + + | Address | [address] | | | [place] [address] | + + + | Home Phone | | + + + | Preferred Language | Unknown | + + + | Marital Status | | + + + | Amish Affiliation | NRP | + + + [...] | | | | | [place] [address] | | + + + + + Care Team Providers + +------+ + | Care Academic Dean Name | Role | Phone | + +------+ + | Chato Matson MD | PCP | | + +------+ + Reason for Referral Consultation (Routine) + +--------+ + + + + | Status | Reason | Specialty | Diagnoses / | Referred By | Referred To | | | | | Procedures | Contact | Contact | + +--------+ + + + + | Authorized | | Physical | Diagnoses | Chanelle, | [facility] | | | | Therapy | NSTEMI | Lala A, | [facility] | | | | | (non-ST | PA-C [address] | [address] | | | | | elevated | [address] | [address] | | | | | myocardial | [address] | Mailcode: | | | | | infarction) | Rd | [facility] | | | | | (HCC) | [place], [place] | [facility] | | | | | Stenosis of | [id number] | and Healing | | | | | coronary | Phone: | [place], [place] | | | | | artery | [phone] | [address] | | | | | stent, | Fax: | Phone: | | | | | initial | [phone] | [phone] | | | | | encounter | | Fax: | | | | | Procedures | | [phone] | | | | | CONSULT TO | | | | | | | CARDIAC | | | | | | | REHAB - [facility] | | | + +--------+ + + + + Reason for Visit + + + | Reason | Comments | + + + | Coronary artery | | | disease | | + + + AUTH/CERT +--------+--------+ + + + + [...] + + | 10/10/ | Hospital | [address] | Khurram Bedoya | | | 2018 - | Encounter | [address] | MD Kari [address] | | | | | [address] [place] [address] | [address] | | | 10/17/ | | [place], [place] | [place] | | | 2018 | | [address] | [address] | | | | | [phone] | [phone] | | | | | | | [...] AM PST | + + + + in this encounter Functional Status + + + [...] + + + as of this encounter Discharge Summaries Lala Schofield PA-C - 10/17/2017 2:23 PM PSTFormatting of this note may be different fro m the original. INPATIENT CARDIOLOGY DISCHARGE SUMMARY PCP: Chato Matson MD Referring Physician & Institution: Other Dictation Primary/Outpatient Manager Professional Development: Dr Jamal Guerrero MD Inpatient Attending Physician: Khurram Bedoya MD Author/Discharging Provider: LALA SCHOFIELD PA-C Admission Date: 10/10/2017 Discharge Date: 10/17/2017 Active Hospital Problems 1) *NSTEMI (non-ST elevated myocardial infarction) (HCC) 2) Coronary 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 3) Stenosis of coronary artery stent 4) Ischemic cardiomyopathy 5) Chronic systolic congestive heart failure (HCC) 7) Encounter for insertion of cardiac resynchronization therapy defibrillator (INLAYER-D) 8) Paroxysmal atrial flutter (HCC) 9) Influenza, pneumonia 10) Prediabetes 11) Tobacco use Procedures 10/15/17: Successful percutaneous coronary intervention to the ostial left circumflex. One 3.0 x 18 mm Resolute Alvaro drug-eluting stent. Successful percutaneous coronary transluminal angiopla sty of the distal left main extending into the left anterior descending coronary artery with final kissing balloon inflation with a 3.5 mm noncompliant and a 2.5 mm compliant balloon. 10/16/17: 1) EP study with VT induction 2) INLAYER-D implantation Reason For Admission: Consideration of complex PCI vs CABG for in-stent restenosis of LCx and LM/LAD stents Hospital Course: Please see H&P for hospital course at [facility] prior to transfer to [facility]. Ron Mckeon is a 61 year old male with past medical history of CAD s/p anterior STEMI 03/2017 with cardiogenic shock s/p PCI with ANY to LM/LAD and LCx with ECMO support, systolic heart failure (EF 20-25%), ischemic cardiomyopathy, hypertension, Atrial flutter, prior tob acco use, Influenza A with septic shock (10/03) requiring intubation and mechanical ventilati on, HAP on treatment who was admitted in transfer from [facility] on 10/11 for consideration of PCI vs CABG in setting of NSTEMI with in stent retenosis of both LM into LAD and LCx sten ts. Here, he was evaluated by CTS and Interventional cardiology. He underwent cardiac PET and r esting NM perfusion study which showed no viable myocardium, thus CABG was not an option. On 10/15 he underwent angiography/PCI with impella support--had one 3.0 x [address] ug-eluting stent placed in ostial L Cx in addition to transluminal angioplasty of the distal left main extending into the left anterior descending coronary artery with final kissing ba karson inflation with a 3.5 mm noncompliant and a 2.5 mm compliant balloon. He did well with this procedure, then went for an EP study the following day on 10/16. VT was induced, therefor e a INLAYER-D was implanted. He is discharging home in good condition with follow up in 1 week w ith his Manager Professional Development. The following problems were addressed this hospitalization: # CAD with in stent resteonsis of LM/LAD and LCx stents # NSTEMI History of anterior STEMI and cardiac arrest requiring shocks (03/15/2017 requiring ECMO supp ort and intra-aortic balloon pump placement) s/pPCI and stent placement in LCx &LM/LAD. He then developed NSTEMI 10/03/17 (trop peaked at 27) in setting of severe sepsis due to infl uenza and underwent a coronary angiogram at [facility] which revealed in stent re-stenosis of both LM into LAD and LCx stents, mild disease of RCA. Transferred to [facility] for further onel luation. CTS was consulted for consideration of CABG vs complex PCI. Due to nonviable myocardium archie wn on cardiac PET and resting NM perfusion study, PCI was chosen over CABG. On 10/15 he underw ent angiography/PCI with impella support--had one 3.0 x 18 mm Resolute Wallace drug-eluting chery nt placed in ostial L Cx in addition to transluminal angioplasty of the distal left main ext ending into the left anterior descending coronary artery with final kissing balloon inflatio n with a 3.5 mm noncompliant and a 2.5 mm compliant balloon. --ASA 81 mg daily + plavix 75mg daily (likely indefinitely unless he has a major bleed) --atorvastatin 80 mg daily --metoprolol succinate 25mg daily -- pantoprazole for prophy given DAPT -- IMDUR stopped due to soft BPs # Chronic biventricular systolic heart failure with reduced systolic function (EF 30-35%) # Ischemic cardiomyopathy NYHA class II, Stage C. Etiology ischemic. TTE at [facility] showed EF 30-35%, mildly reduced RV function, mild dilation of ascending aorta. Did not require diuretics this admission. Given EF remains low and myocardial perfusion study shows extensive severe perfusional defect invo lving 40% of the LV myocardium with an EF of 24%, EP was consulted for consideration of ICD. On 10/16 he underwent an EP study to assess for inducible VT which was positive and thus a CR T-D was placed. --preload: no need for diuresis --afterload: holding lisinopril due to soft BPs but would conside r restarting in outpatient setting by Cardiology --contractility:metoprolol succinate 25mg daily --aldosterone antagonist: pt unable to tolerate spironolactone du e to hyperkalemia in the past --ICD: placed by EP 10/16, INLAYER-D -- will need 1 week f/u for wound check, then 1 month device check with EP -- f/u with outpatient laboratory engineer 2-4 weeks # Paroxysmal Aflutter Noted Aflutter with RVR at admission in [facility]; treated with amiodarone infusion. He w as transitioned to oral amiodarone and maintained normal rhythm. Given that the aflutter occ urred in setting of severe sepsis, will not continue amiodarone or warfarin. If he has recur rent arrhythmia, this will be noted on INLAYER-D and could consider anticoagulation at that time . However, he requires DAPT and has a possible history of recent GIB, so triple therapy shou ld be avoided if not necessary --rate control: metoprolol as above --anticoagulation: holding warfarin for now given DAPT and h/o GI B. Discuss further with outpatient laboratory engineer. May consider holding anticoagulation unless he demonstrates recurrent arrhythmia # Influenza type A - resolved # Community acquired pneumonia # Severe sepsis with shock, resolved Pt presented to [facility] 10/03 found to be Flu Apositive with severe sepsis and respira tory failure. Pt was intubated, started on oseltamivir and azithromycin, ceftriaxone. He com pleted 6 days of oseltamivir and 10 days of antibiotics as of 10/12. Cough has resolved. CXR showed lingering GGO which is to be expected. # Suspected UGIB s/p 2 clips Pt developed hgb drop from 16 to 12 in setting of sepsis management , fluid resuscitation. EGD at [facility] on 10/05 showed gastritis, duodenitis, linear ulcerations without active b leeding s/p clipping x 2. He has thus far tolerated DAPT and heparin infusion without signs of bleeding --continue protonix 40 mg BID --follow up with GI as outpatient # Pre diabetes A1c 5.6 on this admission. On metformin 500 mg BID at home. Holding during this admission. Specific issues to be addressed at first post-hospitalization visit: 1. Wound check from INLAYER-D placement 2. Consider restarting lisinopril if BPs improve and Cr is stable 3. Instructed pt to restart metformin on 08/18 but reevaluate based on Cr Schedule the following appointment(s) when you get home KULWINDER Stevens. Go on 10/19/2017. Why: at 1:15pm for heart failure follow up, to re-check labwork, and to have your wound ch ecked Contact information HEART [address] [address] KULWINDER Stevens. Go on 11/11/2017. Why: at 9:30am for cardiology follow up and to have your device checked Contact information HEART [address] [address] Medication List START taking these medications Childrens Aspirin 81 mg Chew Generic drug: aspirin chewable Chew and swallow 1 tablet once daily. Indications: myocardial infarction prevention Start taking on: 10/18/2017 Replaces: Aspirin 81 mg Tab gabapentin 300 mg Cap Commonly known as: NEURONTIN Take 1 capsule by mouth three times daily. Indications: Postoperative Acute Pain nitroglycerin 0.4 mg Subl Commonly known as: NITROSTAT Place 1 tablet under tongue and allow to dissolve every 5 minutes as needed for chest pain. Max of 3 doses in 15 minutes. pantoprazole 40 mg Tbec Commonly known as: PROTONIX Take 1 tablet by mouth two times daily. CHANGE how you take these medications atorvastatin 80 mg Tab Commonly known as: LIPITOR Take 1 tablet by mouth once daily. Indications: myocardial infarction prevention Start taking on: 10/18/2017 What changed: medication strength how much to take MAPAP EXTRA STRENGTH 500 mg Tab Generic drug: acetaminophen Take 2 tablets by mouth every six hours as needed. Indications: Pain What changed: when to take this reasons to take this CONTINUE taking these medications artificial tears (dextran 70-hypromellose) 0.1-0.3 % Drop Commonly known as: NATURE'S TEARS Instill 1 drop into both eyes as needed (Dry Eyes). Indications: Dry Eye cholecalciferol (Vitamin D3) 1,000 unit Tab Commonly known as: VITAMIN D3 Take 1 tablet by mouth once daily. Indications: Vitamin D Deficiency clopidogrel 75 mg Tab Commonly known as: PLAVIX Take 1 tablet by mouth once daily. Indications: myocardial infarction prevention Start taking on: 10/18/2017 ergocalciferol 50,000 unit Cap Commonly known as: VITAMIN D2, DRISDOL melatonin 3 mg Tab Take 1 tablet by mouth once daily in the evening. Indications: Delirium metFORMIN 500 mg Tab Commonly known as: GLUCOPHAGE Take 1 tablet by mouth two times daily. Resume on 10/19. Indications: type 2 diabetes [facility] metoprolol succinate 25 mg Tb24 Commonly known as: TOPROL-XL Take 1 tablet by mouth once daily. Indications: Myocardial Reinfarction Prevention oxyCODONE (immediate release) 5 mg Tab Commonly known as: ROXICODONE Take 1-2 tablets by mouth every four hours as needed for severe pain. Indications: Pain polyethylene glycol 17 gram Pwpk Commonly known as: MIRALAX Mix 1 packet and take orally twice daily as needed (constipation). Indications: constipatio n senna-docusate 8.6-50 mg Tab Commonly known as: SENOKOT S Take 1 tablet by mouth two times daily. Hold for loose stools Indications: constipation STOP taking these medications Aspirin 81 mg Tab Commonly known as: LOW-DOSE ASPIRIN Replaced by: Childrens Aspirin 81 mg Chew carvedilol 3.125 mg Tab Commonly known as: COREG isosorbide mononitrate CR 30 mg Tb24 Commonly known as: IMDUR lisinopril 5 mg Tab Commonly known as: PRINIVIL ranitidine 300 mg Tab Commonly known as: ZANTAC traMADol 50 mg Tab Commonly known as: ULTRAM warfarin 5 mg Tab Commonly known as: COUMADIN Diet Low Sodium, Low Cholesterol Sodium 2 gm, Low Cholesterol- Choose foods that are low in cholesterol, saturated fat, tota l fat and have low to moderate sodium levels. Activity Post-Femoral You have had a cardiac catheterization, which includes a puncture to the femoral artery (in your groin area). You need to watch this area closely for increasing pain or signs of blee ding. Activity and other instructions: For the first 24 hours: 1. NO DRIVING 2. No climbing, cycling, or similar activity involving the lower extremities 3. Driving and heavy lifting and pushing or pulling is not allowed for a few days. 4. You may shower on the day following your procedure. Do not take a tub bath or submerge the puncture site in water for 7 days following the procedure. For the first week: 1. No lifting more than 5-10 pounds for one week 2. No swimming, bathing, or submersion in water for one to two weeks. 3. Increase activity as tolerated Discharge Labs: Complete Blood Count Lab Results Component Value Date WBC 8.59 10/17/2017 HB 11.6 10/17/2017 HCT 35.2 10/17/2017 PLT 226 10/17/2017 MCV 91.7 10/17/2017 RDW 47.0 10/17/2017 Basic Metabolic Panel Lab Results Component Value Date NA 137 10/17/2017 K 4.5 10/17/2017 CL 104 10/17/2017 BICARB 26 10/17/2017 BUN 16 10/17/2017 CR 1.40 10/17/2017 GLU 113 10/17/2017 CA 8.4 10/17/2017 Lipid Panel Lab Results Component Value Date CHOL 89 10/10/2017 LDL 42 10/10/2017 HDL 21 10/10/2017 TRI 131 10/10/2017 Pertinent Images/studies CORONARY ANGIOGRAPHY 10/15/17: Limited coronary angiography demonstrated severe ostial in-stent restenosis of the left cir cumflex coronary stent and severe in-stent restenosis of the distal left main extending into the left anterior descending coronary artery. These findings are essentially unchanged from the patient's recent coronary angiogram. PERCUTANEOUS CORONARY INTERVENTION: Lesion #1: 1.Ostial left circumflex coronary artery in-stent restenosis. 2.Lesion type: C. 3.Lesion length: 16 mm. 4.Preintervention ANNA flow: 3. 5.Postintervention ANNA flow: 3. 6.Preintervention stenosis: 95%. 7.Postintervention stenosis: 0%. 8.Stent: 3.0 x 18 mm Resolute Wallace drug-eluting stent. Lesion #2: 1.Lesion location: Distal left main coronary artery extending into the left anterior descending coronary artery. 2.Lesion type: C. 3.Lesion length: 10 mm. 4.Preintervention ANNA flow: 3. 5.Postintervention ANNA flow: 3. 6.Preintervention stenosis: 80%. 7.Postintervention stenosis: 0%. 8.PTCA: Final kissing balloon inflation with a 3.5 mm noncompliant ball oon and a 2.5 mm compliant balloon. IMPRESSION: Successful percutaneous coronary intervention to the ostial left circumflex. One 3.0 x 18 mm Resolute Wallace drug-eluting stent. Successful percutaneous coronary transluminal angiop lasty of the distal left main extending into the left anterior descending coronary artery wi th final kissing balloon inflation with a 3.5 mm noncompliant and a 2.5 mm compliant balloon . NM Myocardial perfusion study 10/13/17: Extensive severe perfusional defect involving approximately 40% of the left ventricular helene cardium with severe wall motion abnormality and ejection fraction of 24%. This study is timothy gorized as high risk. PET scan cardiac 10/13/17: FDG cardiac PET demonstrates severely decreased to absent tracer uptake along the anterior mid to distal wall, mid to distal interventricular septum, and apex. Tracer uptake is seen w ithin the rest of the left ventricle. Review of the separate myocardial rest perfusion Tc-Sestamibi demonstrates extensive severe perfusional defect involving the same areas as described above. The non contrast CT for attenuation and localization was also reviewed. No suspicious pul monary nodules are identified. Small bilateral pleural effusions are present. No suspicious osseous lesions are identified IMPRESSION: No tracer uptake within the mid to distal anterior wall/interventricular septum and apex co rresponding to same non-perfused areas seen on myocardial rest perfusion Tc-Sestamibi, ronan tible with nonviable myocardium TTE 10/11/17: 1. The left ventricular cavity size is normal. 2. The LV function is severely abnormal. 3. Left ventricular systolic thickening is segmentally abnormal (see comments below). 4. Visually estimated left ventricular ejection fraction is 30 - 35%. 5. RV cavity size is normal. RV global systolic function is mildly reduced. 6. There is mild dilatation of the ascending aorta. (See comments below). 7. Compared to the most recent exam dated, 03/30/2017, the LVEF is similar. Cariology Metrics: Most recent LV Ejection Fraction: 30% Core measures: Other Discharge Orders and Instructions Defibrillator Implant Patient Instructions These instructions are pertinent to your implantable cardioverter defibrillator (ICD) new i mplant, ICD upgrade or revision with new lead(s). Driving: No driving for the first 24 hours following the procedure as you may be under the influe nce of sedative medications. You should not drive if you are taking pain medications around the clock. For the first week, you should avoid driving if possible as over aggressive arm motion m ay cause dislodgement of the newly implanted ICD leads. You should not drive any time if you feel weak, dizzy, lightheaded, drowsy, or unsteady from any causes. Patients who have had recurrent syncopal events (fainting, passing out, or loss of consc iousness) or had a cardiac arrest, for which you received an ICD, should not drive for 6 mon ths. You should be cleared by your laboratory engineer prior to returning to driving. If you have driving restrictions from any other medical conditions or reasons, please fo llow those restrictions. Wound Care: Watch your defibrillator procedure site for signs of infection or bleeding. Report any r edness, swelling, bleeding, hematoma (bleeding inside the pocket), or drainage from the site . Report any unexplained fever with temperatures over 100.5 degrees in the first two weeks f ollowing the procedure. The incision will be closed with absorbable stitches under the skin and covered with chery ri-strips. Do not pull these steri-strips off. Usually, they will fall off gradually after a few weeks. If they do not, you may remove them after 3 weeks. A pressure-dressing (thick layered dressing with all-around tape) will be placed above t he steri-strips over the incision at the end of procedure. This will be removed next morning and replaced with regular gauze by our staff. You may take this dressing off the day after you get home. No direct water on the incision site for at least five days - that means no shower, tub bath, or swimming. You can take a sponge bath but keep the procedure site completely dry. Do not immerse the wound in a bath tub, pool or hot tub for one month, to reduce the ris k of infection. Follow-ups after the procedure: You will need a wound check appointment in about one week and ICD check in 4-6 weeks fol lowing the implant procedure. If you prefer to have your primary care doctor check the wound for you, please call his/ her office to make an appointment. If you choose to be followed with us, our office will con tact you to schedule an appointment. The ICD needs to be checked at a cardiology office or device clinic. If you choose to be followed with us, our office will contact you to schedule an appointment. If you prefer to be followed locally, we will assist you to find a cardiology/device clinic near your home. After the first ICD check appointment, you will need to have your ICD checked regularly at the device clinic every 3 months or as directed by the device clinic. In most situations, the device company will send you a remote monitor. Please read the i nstructions regarding how to set this up, and discuss with the device clinic staff at your w ound check appointment or 4-6 ICD check appointment. Arm Activities and Restrictions: For the first 4-6 weeks, restrict the procedure side arm activity to gentle arm motion o nly as the new ICD leads will take about 4-6 weeks to mature at the implant site in your hea rt. Do not lift anything heavier than 10 pounds, push or pull heavy objects, reach above yo ur shoulder or behind your back, and avoid over-aggressive arm motions (i.e. tennis, paintin g, lawn mowing) with your procedure side arm. You may use your non-procedure side arm regularly without restrictions. We recommend regular exercise as you are able to, such as walking, or stationary biking. If you don't know how to begin a regular activity program, please ask your doctor for advic e. Arm Sling: If you are given an arm sling at the hospital after your procedure, only use it for the first couple of days following the procedure for your comfort. You should take your arm out every couple of hours and move your hand/elbow to allow goo d circulation while you are using the arm sling. You should not hold your arm still in the sling for a prolonged period of time, as it ma y cause swelling, soreness, or stiffness in your arm and joints. Diet: Your diet should not have to be changed as a result of your defibrillator implant proced ure. You may be given diet recommendations based on your other health conditions. Electrical and magnet interference: Defibrillators are protected from electrical interference from regular house electronic devices or appliance. It is safe to use and to be around a microwave oven, computer, TV or other regular house electronic devices or appliances. You should avoid using any power tools especially with your procedure side hand. If you have questions about specific electrical devices or power tools you may be around, please ca ll the company's patient line using the phone # on your card or handbook. Your defibrillator function may be affected by strong magnets so you should avoid being around strong magnetic [place] for prolonged periods of time. The defibrillator will return t o normal function as soon as you leave the magnetic field. Cell Phone Use: It is OK to use a cell phone on the opposite side of your defibrillator (use non-procedu re side hand to hold the cell phone to non-procedure side ear). Do not carry a cell phone in the pocket that is over your defibrillator or near your def ibrillator. Travel and Shopping: Your device may trigger airport security detection devices. Please carry your defibrilla tor card with you and show the attendant your card. Ask for hand search and do not use hand- held wand search over your device. It is safe to go through the full body scanner at the air port, but only after 6 weeks post defibrillator implant as this requires you to put your petty ds above your head. Some department stores and grocery stores have anti-theft doors. Please do not lean agai nst these anti-theft doors. Walk through them at normal pace. Wallet Defibrillator Card: You will be given a handbook in the hospital after the implant procedure which contains important information about your device and has answers to most common questions. Please alexis d it thoroughly and be sure to have your questions answered before leaving the hospital. You will receive a wallet ID card in the mail from the device company in about 2-3 weeks . Please always carry the card with you when you go to doctor's appointments, the emergency room, or hospital so other health care providers will know what type of defibrillator you gonzales ve. You can find the company's patient line phone number in the handbook as well as on your card. You can contact the company if you have any technical questions regarding your device. How to Contact us: Cardiology Division Office [phone] Cardiology Patient Phone Line EDUIN Shepherd Dr., Dr., Dr., PA-C Connie Barber, NP Karen Paladino, RN Margaret Kleist, RN Evenings or weekends: Ask for on-call laboratory engineer Drug Eluting Stent 1. Please take Plavix (clopidogrel) everyday which helps to keep the stent open. You need t o take it every day for one year and do not stop unless you are told to by your laboratory engineer . 2. Take an aspirin 81 mg once daily indefinitely. 3. You were referred for cardiac rehab and should start now that you have had a stent place d. 4. Follow up with your laboratory engineer within 2-4 weeks. 5. No elective surgeries for one year. 6. There is still a small risk that the stent can block off within the year. If you have se frannie chest pain, call 911. Cardiac Rehabilitation: This patient is referred for cardiac rehabilitation. Patient is currently limited in the a bility to perform age-related activities of daily living and/or impaired functional abilitie s and would benefit from outpatient cardiac rehabilitation. Patient has a documented diagno sis of: PCI/Stent. Date of Event/Procedure/Diagnosis: 10/12/17 NYHA Classification: II Tobacco Use: Yes, active smoker.Patient counseled on importance of [facility] Last vitals: BP: 101/65 (10/17/17 1144) Pulse: 80 (10/17/17 1144) Resp: 18 ( 1144) Weight: 88.4 kg (194 lb 14.2 oz) (10/17/17 0221) Discharging Provider: LALA SCHOFIELD PA-C, Cardiovascular Medicine Attending Physician: Khurram Bedoya MD, Cardiovascular Medicine Lala Schofield PA-C Instructor of Cardiovascular Medicine [facility] Cardiovascular [place] [facility] I spent 36 minutes in coordination of care and [id number] with the patient and/or their s urrogate in which the problems above were discussed Associated attestation - Khurram Bedoya MD - 10/17/2017 3:22 PM PSTCardiology [facility] I have seen and examined Mr. Mckeon and discussed the patient's management with the [facility]entia healthed practitioner. I reviewed the practitioner's note above and agree with the documented f indings and plan of care. KHURRAM BEDOYA MD Director of the [facility] Hypertrophic Cardiomyopathy Record Clerk of Echocardiography Paper Cutter Operatorfront line supervisor Division of Cardiovascular Medicine in this encounter Discharge Instructions The following attachments cannot be sent through Care Everywhere.WOUND CHECK (AZERBAIJANI)ICD ( IMPLANTABLE CARDIOVERTER-DEFIBRILLATOR): POST-OP (AZERBAIJANI)PAIN POST-SURGERY: ACUTE (AZERBAIJANI) OPIOIDS: SAFE USE (AZERBAIJANI)OPIOIDS: STORAGE AND DISPOSAL: GENERAL INFO (AZERBAIJANI)in this enco unter Medications at Time of Discharge + + +---------+---------+ + + | Medication | Sig. | Disp. | Refills | Start | End Date | | | | | | Date | | + + +---------+---------+ + + | acetaminophen 500 | Take 2 tablets by | 100 | 0 | 10/17/19 | | | mg oral | mouth every six | tablet | | 18 | | | tabletIndications: | hours as needed. | | | | | | Pain | Indications: Pain | | | | | + + +---------+---------+ + + | artificial tears | Instill [...] Eye | | | | | | + + +---------+---------+ + + | aspirin chewable | Chew [...] | | | | | + + +---------+---------+ + + | atorvastatin 80 mg | [...] | | | | | + + +---------+---------+ + + | cholecalciferol | Take 1 [...] Deficiency | | | | | | + + +---------+---------+ + + | clopidogrel 75 mg | [...] | | | | | + + +---------+---------+ + + | gabapentin 300 mg | Take 1 capsule by | 90 | 0 | 10/17/19 | | | oral | mouth three times | capsule | | 18 | | | capsuleIndications: | daily. Indications: | | | | | | Postoperative Acute | Postoperative Acute | | | | | | Pain | Pain | | | | | + + +---------+---------+ + + | melatonin 3 mg | Take 1 tablet by | 30 | 0 | 04/02/20 | | | oral | mouth once daily in | tablet | | 17 | | | tabletIndications: | the evening. | | | | | | Delirium | Indications: | | | | | | | Delirium | | | | | + + +---------+---------+ + + | metFORMIN 500 mg | [...] | | | | | + + +---------+---------+ + + | metoprolol | Take 1 tablet by | 30 | 0 | 10/17/19 | | | succinate 25 mg oral | mouth once daily. | tablet | | 18 | | | tablet extended | Indications: | | | | | | release 24 | Myocardial | | | | | | hrIndications: | Reinfarction | | | | | | Myocardial | Prevention | | | | | | Reinfarction | | | | | | | Prevention | | | | | | + + +---------+---------+ + + | nitroglycerin 0.4 | Place 1 tablet under | 25 | 2 | 02/10/20 | | | mg sublingual | tongue [...] | | | | | + + +---------+---------+ + + | oxyCODONE | Take 1-2 [...] | | | | | + + +---------+---------+ + + | pantoprazole 40 mg | Take 1 tablet by | 60 | 11 | 10/17/19 | | | oral tablet,delayed | mouth two times | tablet | | 18 | | | release (DR/EC) | daily. | | | | | + + +---------+---------+ + + | polyethylene | Mix 1 [...] | | | | | + + +---------+---------+ + + | senna-docusate | Take 1 [...] | | | | | + + +---------+---------+ + + as of this encounter Progress Notes Amarilis Castle MD - 10/17/2017 10:55 AM PSTICD AND POCKET CHECK NOTE Ron Mckeon is a 61 y.o. Male who underwent implant of a Biventricular ICD on , for ICM, Primary Prevention. Patient was seen and evaluated this morning post implant for device interrogation and evalu ation of the implant pocket/site. The patient denies palpitations, dizziness, shortness of breath or chest pain. There is minimal discomfort at the implant site. The procedure site is C/D/I without evidence of hematoma or active oozing. The pressure dr essing was removed and replaced with a 4x4 dressing. Steri-strips remain in place. Reviewed and provided written instructions. CXR shows appropriately positioned lead(s) without evidence of pneumothorax. Device parameters as below: Device Information: Implant date: 10/16/17 BiV-ICD pulse generator: Title Inspector: MedOvertone Model number: [id number] Serial number: [id number] RA lead: Title Inspector: Medtronic Model number: 5076-52 Serial number: [id number] RV lead: Title Inspector: Medtronic Model number: [id number] Serial number: [id number] CS lead: Title Inspector: Medtronic Model number: [id number] Serial number: [id number] ICD PROGRAMMING: Bradycardia Parameters: Mode: DDD Lower rate limit: 50 Upper rate limit: 130 Output (A): 3.5 V at 0.4 ms Sensitivity (A): 0.3 mV Output (RV): 3.5 V at 0.4 ms Sensitivity (RV): 0.3 mV Output (CS): 2.0 V at 0.4ms Tachycardia Parameters: VT zone: 177-200 Therapies: Monitor VF zone: >200 bpm Therapies: 35 J x 6 PACING PERCENTAGE: AP: <0.1% TILE SETTER APPRENTICE: 98.3% EPISODES SINCE IMPLANT: none. TODAY'S TESTING RESULTS: Battery status: Battery Voltage/Current: ULICES Estimate Longevity: 9.5 years RA lead: Impede: 418 ohms P. Wave Amplitude: 1.4 mV Threshold: 0.5 V @ 0.4 ms RV lead: Impede: 418 ohms R. Wave Amplitude: 17.3 mV Threshold: 0.5 V @ 0.4 ms HV imped: 64 ohms LV lead: Impede: 817 ohms Threshold: 0.5 V @ 0.4 ms Patient is not pacer dependent. Today's underline rhythm is sinus. Programming Changes: None. Returned to initial settings after threshold testing. Physical exam: VS: Blood pressure 111/66, pulse 84, temperature 36.8 C (98.2 F), resp. rate 16, height 1.753 m (5' 9"), weight 88.4 kg (194 lb 14.2 oz), SpO2 97 %. Chest/Lungs: Chest: Left infraclavicular site c/d/i without evidence of hematoma or active oozing. Lungs: CTAB without wheezes, rhonchi or rales. Normal symmetric air entry throughou t both lung chadwick. Heart: regular. No murmurs, rubs or gallops appreciated. Extremities: No clubbing, cyanosis or edema noted. No groin hematoma Chest x-ray: Reviewed, leads in place and no evidence of pneumothorax. Assessment: - Device function normal. - Battery status is good. - Lead impedance, sensing, and thresholds are stable/normal. - No pocket hematoma Plan: - Wound check in one week and Device check in one month at [facility] device clinic. I have reque sted our office scheduling pool to contact the patient with appointment. - I reviewed post implant instructions and provided written copy as documented in my separa te progress note. Patient would like to be followed locally for wound check in one week and device check in o ne month. If primary team could please assist patient with these appointments. Thank you. Amarilis Castle MD Electrophysiology Fellow Division of Cardiovascular Medicine [facility] Pager [phone] Associated attestation - Lauro Jorgensen MD - 10/18/2017 12:04 PM PSTElectrophysiolog y Attending I have seen and examined Mr. Mckeon and discussed the patient's management with the resi dent and/or fellow. I reviewed the housestaff note above and agree with the documented find ings and plan of care. He is doing well. For regular device follow up. Lauro Jorgensen M.D. Director, Electrophysiology [employer]el[employer] Consultantcaterpillar tractor operator [facility] [place] [phone] Amarilis Castle MD - 10/17/2017 10:53 AM PST Defibrillator Implant Patient Instructions These instructions are pertinent to your implantable cardioverter defibrillator (ICD) new i mplant, ICD upgrade or revision with new lead(s). Driving: ? No driving for the first 24 hours following the procedure as you may be under the influen ce of sedative medications. ? You should not drive if you are taking pain medications around the clock. ? For the first week, you should avoid driving if possible as over aggressive arm motion ma y cause dislodgement of the newly implanted ICD leads. ? You should not drive any time if you feel weak, dizzy, lightheaded, drowsy, or unsteady f rom any causes. ? Patients who have had recurrent syncopal events (fainting, passing out, or loss of consci ousness) or had a cardiac arrest, for which you received an ICD, should not drive for 6 jamila hs. You should be cleared by your laboratory engineer prior to returning to driving. ? If you have driving restrictions from any other medical conditions or reasons, please fol low those restrictions. Wound Care: ? Watch your defibrillator procedure site for signs of infection or bleeding. Report any re dness, swelling, bleeding, hematoma (bleeding inside the pocket), or drainage from the site. Report any unexplained fever with temperatures over 100.5 degrees in the first two weeks fo llowing the procedure. ? The incision will be closed with absorbable stitches under the skin and covered with ster i-strips. Do not pull these steri-strips off. Usually, they will fall off gradually after a few weeks. If they do not, you may remove them after 3 weeks. ? A pressure-dressing (thick layered dressing with all-around tape) will be placed above th e steri-strips over the incision at the end of procedure. This will be removed next morning and replaced with regular gauze by our staff. You may take this dressing off the day after y ou get home. ? No direct water on the incision site for at least five days that means no shower, tub bath, or swimming. You can take a sponge bath but keep the procedure site completely dry. ? Do not immerse the wound in a bath tub, pool or hot tub for one month, to reduce the risk of infection. Follow-ups after the procedure: ? You will need a wound check appointment in about one week and ICD check in 4-6 weeks foll owing the implant procedure. ? If you prefer to have your primary care doctor check the wound for you, please call his/h er office to make an appointment. If you choose to be followed with us, our office will cont act you to schedule an appointment. ? The ICD needs to be checked at a cardiology office or device clinic. If you choose to be followed with us, our office will contact you to schedule an appointment. If you prefer to b e followed locally, we will assist you to find a cardiology/device clinic near your home. ? After the first ICD check appointment, you will need to have your ICD checked regularly a t the device clinic every 3 months or as directed by the device clinic. ? In most situations, the device company will send you a remote monitor. Please read the in structions regarding how to set this up, and discuss with the device clinic staff at your wo und check appointment or 4-6 ICD check appointment. Arm Activities and Restrictions: ? For the first 4-6 weeks, restrict the procedure side arm activity to gentle arm motion on ly as the new ICD leads will take about 4-6 weeks to mature at the implant site in your hear t. Do not lift anything heavier than 10 pounds, push or pull heavy objects, reach above you r shoulder or behind your back, and avoid over-aggressive arm motions (i.e. tennis, painting , lawn mowing) with your procedure side arm. ? You may use your non-procedure side arm regularly without restrictions. ? We recommend regular exercise as you are able to, such as walking, or stationary biking. If you don t know how to begin a regular activity program, please ask your doctor for advi ce. Arm Sling: ? If you are given an arm sling at the hospital after your procedure, only use it for the f irst couple of days following the procedure for your comfort. ? You should take your arm out every couple of hours and move your hand/elbow to allow good circulation while you are using the arm sling. ? You should not hold your arm still in the sling for a prolonged period of time, as it may cause swelling, soreness, or stiffness in your arm and joints. Diet: ? Your diet should not have to be changed as a result of your defibrillator implant procedu re. ? You may be given diet recommendations based on your other health conditions. Electrical and magnet interference: ? Defibrillators are protected from electrical interference from regular house electronic d evices or appliance. It is safe to use and to be around a microwave oven, computer, TV or o ther regular house electronic devices or appliances. ? You should avoid using any power tools especially with your procedure side hand. If you h ave questions about specific electrical devices or power tools you may be around, please annie l the company's patient line using the phone # on your card or handbook. ? Your defibrillator function may be affected by strong magnets so you should avoid being a round strong magnetic chadwick for prolonged periods of time. The defibrillator will return to normal function as soon as you leave the magnetic field. Cell Phone Use: ? It is OK to use a cell phone on the opposite side of your defibrillator (use non-procedur e side hand to hold the cell phone to non-procedure side ear). ? Do not carry a cell phone in the pocket that is over your defibrillator or near your defi brillator. Travel and Shopping: ? Your device may trigger airport security detection devices. Please carry your defibrillat or card with you and show the attendant your card. Ask for hand search and do not use hand-h eld wand search over your device. It is safe to go through the full body scanner at the [facility] or, but only after 6 weeks post defibrillator implant as this requires you to put your hand s above your head. ? Some department stores and grocery stores have anti-theft doors. Please do not lean again st these anti-theft doors. Walk through them at normal pace. Wallet Defibrillator Card: ? You will be given a handbook in the hospital after the implant procedure which contains i mportant information about your device and has answers to most common questions. Please read it thoroughly and be sure to have your questions answered before leaving the hospital. ? You will receive a wallet ID card in the mail from the device company in about 2-3 weeks. Please always carry the card with you when you go to doctor s appointments, the emergency room, or hospital so other health care providers will know what type of defibrillator you h ave. ? You can find the company s patient line phone number in the handbook as well as on your card. You can contact the company if you have any technical questions regarding your device . How to Contact us: Cardiology Division Office [phone] Cardiology Patient Phone Line EDUIN Shepherd Dr., Dr., Dr., PA-C Connie Barber, NP Karen Paladino, ALFONSO Yung RN Evenings or weekends: Ask for on-call cardiologistAmarilis Castle MD - 10/16/2017 6:20 PM PSTPRELIMINARY PROCEDU RE NOTE Date and Time: 10/16/17 Name(s) of Primary Surgeon/Physician and Assistants: Wilner/Tin Pre-Operative Diagnosis: Ischemic cardiomyopathy with reduced EF 30-35% Post-Operative Diagnosis: Same Name of Procedure Performed: 1) EP study with VT induction 2) INLAYER-D Indication for the procedure: Ischemic cardiomyopathy with reduced EF 30-35% Positive EPS for inducible VT Intra-operative complications: none Estimated Blood Loss:15 ml Fluid In/Out:1300 ml/0 Plan: Portable CXR to evaluate for lead positions. Continue prophylactic IV antibiotics for 24 hours. PA and lateral CXR in AM to confirm lead position. Device interrogation in AM. Outpatient wound check in one week, device check in one month. Amarilis Castle MD Electrophysiology Fellow Division of Cardiovascular Medicine [facility] Pager [phone] Lala Schofield PA-C - 10/16/2017 2:07 PM PSTFormatting of this note may be different fro m the original. IP Cardiology Progress Note Date: 10/16/2017 Hospital Day: 6 Attending Manager Professional Development: Khurram Bedoya MD Provider: LALA SCHOFIELD PA-C Primary Care Provider: Chato Matson MD Outpatient Manager Professional Development: Dr Jamal Guerrero MD ID:Ron Mckeon is a 61 year old male with past medical history of CAD s/p anterior CHERY NC 03/2017 with cardiogenic shock s/p PCI with ANY to LM/LAD and LCx with ECMO support, systo lic heart failure (EF 20-25%), ischemic cardiomyopathy, hypertension, Atrial flutter, prior tobacco use, recent JAVON thrombus on anticoagulation, Influenza A with septic shock (10/03) re quiring intubation and mechanical ventilation, HAP on treatment who was admitted in transfer from [place] on 10/11 for consideration of PCI vs CABG in setting of NSTEMI with in stent retenosis of both LM into LAD and LCx stents Interval Events: - PCI with Impella support yesterday; ANY to Ostial L Cx (in-stent restenosis), distal LM t o LAD stenosis ballooned - BPs soft yesterday--reduced carvedilol to 3.125 and held evening dose - NPO for EP study and ICD implantation Subjective: No new symptoms overnight. Slept fairly well. Feeling anxious about getting this procedure done but knows he is in good hands Current Inpatient Medications: acetaminophen (TYLENOL) tablet 650 mg, 650 mg, oral, Q4H PRN amiodarone (CORDARONE) tablet 200 mg, 200 mg, oral, DAILY artificial tears (dextran 70-hypromellose) (NATURE'S TEARS) 0.1-0.3 % ophthalmic drops 1 dr op, 1 drop, Both Eyes, PRN aspirin chewable tablet 81 mg, 81 mg, oral, DAILY atorvastatin (LIPITOR) tablet 40 mg, 40 mg, oral, DAILY bisacodyl (DULCOLAX) suppository 10 mg, 10 mg, rectal, DAILY PRN carvedilol (COREG) tablet 3.125 mg, 3.125 mg, oral, BID W/MEALS cholecalciferol (Vitamin D3) (VITAMIN D-3) tablet 1,000 Units, 1,000 Units, oral, DAILY clopidogrel (PLAVIX) tablet 75 mg, 75 mg, oral, DAILY gabapentin (NEURONTIN) capsule 300 mg, 300 mg, oral, TID ketorolac (ACULAR) 0.5 % ophthalmic drops 1 drop, 1 drop, Left Eye, QID magnesium citrate liquid 296 mL, 296 mL, oral, DAILY PRN melatonin tablet 3 mg, 3 mg, oral, QPM ofloxacin (OCUFLOX) 0.3 % ophthalmic drops 1 drop, 1 drop, Left Eye, QID oxyCODONE (immediate release) (ROXICODONE) tablet 5-10 mg, 5-10 mg, oral, Q6H PRN pantoprazole (PROTONIX) tablet 40 mg, 40 mg, oral, BID polyethylene glycol (MIRALAX) packet 17 g, 17 g, oral, BID polyethylene glycol (MIRALAX) packet 34 g, 34 g, oral, TID PRN prednisoLONE acetate (PRED FORTE) 1 % ophthalmic drops, suspension 1 drop, 1 drop, Left Eye , QID senna-docusate (SENOKOT S) 8.6-50 mg 4 tablet, 4 tablet, oral, BID alfentanil (ALFENTA) injection, , , INTRAPROCEDURE PRN ceFAZolin (ANCEF) injection, , , INTRAPROCEDURE PRN dexmedetomidine (PRECEDEX) IV infusion, , , PRN EPINEPHrine (ADRENALIN) injection, , , INTRAPROCEDURE PRN lidocaine (XYLOCAINE MPF) 2 % (20 mg/mL) injection, , , INTRAPROCEDURE PRN midazolam (VERSED) injection, , , INTRAPROCEDURE PRN PHENYLEPHrine 100 mcg/mL IV syringe, , , INTRAPROCEDURE PRN propofol (DIPRIVAN) injection, , , PRN sodium chloride 0.9% IV infusion, , , PRN Physical Exam: Last Vitals: BP 123/76 | Pulse 84 | Temp 36.8 C (98.2 F) | RR 16 | Ht 1.753 m (5' 9") | Wt 87.4 kg (192 lb 9.6 oz) | SpO2 95% | BMI 28.44 kg/(m^2) 24 Hour Vital Min/Max: Systolic (24hrs), Av , Min:85 , Max:123 Diastolic (24hrs), Av, Min:55, Max:76 Pulse Min: 67 Max: 86 Temp Min: 36.7 C (98.1 F) Max: 36.8 C (98.2 F) Resp Min: 16 Max: 16 SpO2 Min: 90 % Max: 95 % Intake/Output Summary (Last 24 hours) at 10/16/17 1407 Last data filed at 10/16/17 1303 Gross per 24 hour Intake 2010 ml Output 2730 ml Net -720 ml General Appearance: well appearing man, alert, chatty Respiratory: Unlabored breathing. CTAB without wheezes, crackles or rhonchi Cardiovascular: very distant heart tones but cannot appreciate murmur and sounds regular. J TILE SETTER APPRENTICE not above clavicle at 90 degrees Gastrointestinal: soft, BS normal, nontender Extremities: no edema, wwp Diagnostic Data: Chemistries: Last 72 Hours (or 3 results) - Refreshable Recent Labs 10/14/17 0425 10/15/17 0436 10/15/17 1807 10/16/17 0414 10/16/17 0856 NA 141 -- 139 -- -- 137 -- K 4.3 -- 4.4 -- -- 4.2 -- CL 107 -- 105 -- -- 104 -- BICARB 25 -- 27 -- -- 25 -- BUN 18 -- 18 -- -- 19 -- CR 1.31* -- 1.52* -- -- 1.26 -- GLU 118* < > 120* < > 96 115* 119* CA 8.5* -- 8.7 -- -- 8.5* -- < > = values in this interval not displayed. CBC with diff last 72 hours (or 3 results) - Refreshable Recent Labs 10/14/17 0424 10/15/17 0436 10/16/17 0414 WBC 7.44 6.77 7.46 HB 11.1* 11.5* 11.6* HCT 33.7* 33.9* 34.2* PLT 216 205 209 No results for input(s): AST, ALT, TBILI, AP, ALB, TP in the last 72 hours. Lab Results Component Value Date CHOL 89 10/10/2017 LDL 42 10/10/2017 HDL 21 10/10/2017 TRI 131 10/10/2017 Lab Results Component Value Date INRPT 1.11 10/15/2017 Lab Results Component Value Date TROPONIN 0.95 03/30/2017 TROPONIN 1.30 03/30/2017 TROPONIN 1.08 03/30/2017 TROPONIN 0.89 03/30/2017 TROPONIN 0.41 03/29/2017 No results found for: NTPROBNP No results found for: FREET4, TSH, TPOAB, THYROGLOB, THYROGLOBAB, J2DCSSM Lab Results Component Value Date A1C 5.9 10/11/2017 A1C 5.6 03/26/2017 EKG: sinus with LBBB. QTc 511 TTE 10/11/17: 1. The left ventricular cavity size is normal. 2. The LV function is severely abnormal. 3. Left ventricular systolic thickening is segmentally abnormal (see comments below). 4. Visually estimated left ventricular ejection fraction is 30 - 35%. 5. RV cavity size is normal. RV global systolic function is mildly reduced. 6. There is mild dilatation of the ascending aorta. (See comments below). 7. Compared to the most recent exam dated, 03/30/2017, the LVEF is similar. CORONARY ANGIOGRAPHY 10/15/17: Limited coronary angiography demonstrated severe ostial in-stent restenosis of the left cir cumflex coronary stent and severe in-stent restenosis of the distal left main extending into the left anterior descending coronary artery. These findings are essentially unchanged from the patient's recent coronary angiogram. PERCUTANEOUS CORONARY INTERVENTION: Lesion #1: 1. Ostial left circumflex coronary artery in-stent restenosis. 2. Lesion type: C. 3. Lesion length: 16 mm. 4. Preintervention ANNA flow: 3. 5. Postintervention ANNA flow: 3. 6. Preintervention stenosis: 95%. 7. Postintervention stenosis: 0%. 8. Stent: 3.0 x 18 mm Resolute Wallace drug-eluting stent. Lesion #2: 1. Lesion location: Distal left main coronary artery extending into the left anter ior descending coronary artery. 2. Lesion type: C. 3. Lesion length: 10 mm. 4. Preintervention ANNA flow: 3. 5. Postintervention ANNA flow: 3. 6. Preintervention stenosis: 80%. 7. Postintervention stenosis: 0%. 8. PTCA: Final kissing balloon inflation with a 3.5 mm noncompliant balloon and a 2.5 mm compliant balloon. IMPRESSION: Successful percutaneous coronary intervention to the ostial left circumflex. One 3.0 x 18 mm Resolute Alvaro drug-eluting stent. Successful percutaneous coronary transluminal angiopla sty of the distal left main extending into the left anterior descending coronary artery with final kissing balloon inflation with a 3.5 mm noncompliant and a 2.5 mm compliant balloon. NM Myocardial perfusion study 10/13/17: Extensive severe perfusional defect involving approximately 40% of the left ventricular helene cardium with severe wall motion abnormality and ejection fraction of 24%. This study is timothy gorized as high risk. PET scan cardiac 10/13/17: FDG cardiac PET demonstrates severely decreased to absent tracer uptake along the anterior mid to distal wall, mid to distal interventricular septum, and apex. Tracer uptake is seen w ithin the rest of the left ventricle. Review of the separate myocardial rest perfusion Tc-Sestamibi demonstrates extensive severe perfusional defect involving the same areas as described above. The non contrast CT for attenuation and localization was also reviewed. No suspicious pul monary nodules are identified. Small bilateral pleural effusions are present. No suspicious osseous lesions are identified IMPRESSION: No tracer uptake within the mid to distal anterior wall/interventricular septum and apex co rresponding to same non-perfused areas seen on myocardial rest perfusion Tc-Sestamibi, ronan tible with nonviable myocardium EGD 10/05/17 at OSH Indication: Suspected UGIB - Normal upper third of esophagus, middle third of esophagus and lower third of esophagus. - Acute gastritis. - Non-bleeding gastric ulcers with pigmented material. Clips were placed. - Friable duodenal mucosa. - Normal first portion of the duodenum, second portion of the duodenum, area of the papilla and third portion of the duodenum. - No specimens collected. LHC and selective coronary angiography 10/04/17 summary (full report in [facility]): 1.Systemic hypotension, upper normal left ventricular end-diastolic pressure 2.Severe in-stent stenosis of left main to ostial LAD stent 3.Severe in-stent stenosis ostial proximal left circumflex stent 4.Mild to moderate RCA disease 5.ANNA grade 1 flow to distal LAD Assessment & Plan: # CAD with in stent resteonsis of LM/LAD and LCx stents # NSTEMI History of anterior STEMI and cardiac arrest requiring shocks (03/15/2017 requiring ECMO supp ort and intra-aortic balloon pump placement) s/pPCI and stent placement in LCx &LM/LAD. He then developed NSTEMI 10/03/17 (trop peaked at 27) in setting of severe sepsis due to infl uenza and underwent a coronary angiogram at [place] which revealed in stent re-stenosis of both LM into LAD and LCx stents, mild disease of RCA. Transferred to [facility] for further onel luation. CTS was consulted for consideration of CABG vs complex PCI. Due to nonviable myocardium archie wn on cardiac PET and resting NM perfusion study, PCI was chosen over CABG. On 10/15 he underw ent angiography/PCI with impella support--had one 3.0 x 18 mm Resolute Wallace drug-eluting chery nt placed in ostial L Cx in addition to transluminal angioplasty of the distal left main ext ending into the left anterior descending coronary artery with final kissing balloon inflatio n with a 3.5 mm noncompliant and a 2.5 mm compliant balloon. --ASA 81 mg daily + plavix 75mg daily (likely indefinitely unless he has a lauri or bleed) --atorvastatin 40 mg daily (lower dose in setting of concurrent amiodarone) -- carvedilol back to 3.125mg bid -- pantoprazole for prophy given DAPT # Chronic biventricular systolic heart failure with reduced systolic function (EF 30-35%) # Ischemic cardiomyopathy NYHA class II-III, Stage C. Etiology ischemic. TTE at [facility] showed EF 30-35%, mildly reduced RV function, mild dilation of ascending aorta. Currently appears euvolemic. Given EF remain s low and myocardial perfusion study shows extensive severe perfusional defect involving 40% of the LV myocardium with an EF of 24%, EP was consulted for consideration of ICD. On 10/16 h e underwent an EP study to assess for inducible VT which was positive and thus an ICD was pl aced. --preload: holding diuresis --afterload: holding lisinopril (AYLIN, PCI contrast load, can initiate tomorrow ) --contractility: carvedilol as above --aldosterone antagonist: pt unable to tolerate spironolactone due to hyperkal emia in the past --ICD: placed today by EP -- will need 1 week f/u with PCP for wound check, then 1 month device check with EP -- f/u with outpatient laboratory engineer 2-4 weeks # Paroxysmal Aflutter Noted Aflutter with RVR at admission in [place]; treated with amiodarone infusion. Now maintaining SR on oral amio. CHADS-VASC 3, HAS-BLED 3. Was previously on heparin infusion fo r NSTEMI but this has been stopped and AC was not started in anticipation of PCI. --rate control: carvedilol as above --rhythm control: continue amiodarone 200 mg daily for now, to be reassessed b y outpatient laboratory engineer --anticoagulation: holding warfarin for now given DAPT and h/o GIB. Discuss fu rther with outpatient laboratory engineer. May consider holding anticoagulation unless he demonstra janeth recurrent arrhythmia # Influenza type A - resolved # Community acquired pneumonia # Severe sepsis with shock, resolved Pt presented to [facility] 10/03 found to be Flu A positive with severe sepsis and respirat ory failure. Pt was intubated, started on oseltamivir and azithromycin, ceftriaxone. He comp leted 6 days of oseltamivir and 10 days of antibiotics as of 10/12. Cough has resolved. CXR 10/11 showed lingering GGO which is to be expected. # Suspected UGIB s/p 2 clips Pt developed hgb drop from 16 to 12 in setting of sepsis management , fluid resuscitation. EGD at [facility] on 10/05 showed gastritis, duodenitis, linear ulcerations without active b leeding s/p clipping x 2. He has thus far tolerated DAPT and heparin infusion without signs of bleeding --continue protonix 40 mg BID --follow up with GI as outpatient --CBC daily, if symptoms or signs of bleeding check more frequently # Pre diabetes A1c 5.6 on this admission. On metformin 500 mg BID at home. Holding during this admission. FEN/GI:NPO for EP study, then heart health Prophylaxis: holding heparin as above, ambulatory Glucose: see above Contact Precautions: standard Lines/catheters: PIV Problem list updated: yes Disposition:anticipate home tomorrow Follow up: Will need PCP, Cardiology, EP - Pily aware and working on it CODE: FC/FT This patient was interviewed and examined by attending laboratory engineer, Dr. Khurram Bedoya MD , who is in agreement with above described findings, assessment and plan. LALA SCHOFIELD PA-C Cardiovascular Medicine [facility] Pager [phone] I spent 36 minutes in coordination of care and [id number] with the patient and/or their surrogate in which the following was discussed: plan for EP study with possibility of ICD im plantation, heart failure, blood pressure, discharge planning Associated attestation - Khurram Bedoya MD - 10/16/2017 4:39 PM PSTOne by mouth daily ^30^12^Joe Baldwin MD - 10/15/2017 7:12 PM PSTFormatting of this note may be different from nissa suh original. POST-CATH Groin Check S: No complaints Pertinent Negatives: No chest pain, access site pain, dyspnea, focal weakness or parasthesi as. Last Vitals: BP 108/59 | Pulse 78 | Temp 36.4 C (97.5 F) | RR 16 | Ht 1.753 m (5' 9") | Wt 88 kg (194 lb) | SpO2 94% | BMI 28.65 kg/(m^2) 24 Hour Vital Min/Max: Systolic (24hrs), Av , Min:85 , Max:134 Diastolic (24hrs), Av, Min:50, Max:85 Pulse Min: 63 Max: 84 Temp Min: 36.3 C (97.3 F) Max: 36.8 C (98.2 F) Resp Min: 12 Max: 20 SpO2 Min: 92 % Max: 97 % Intake/Output Summary (Last 24 hours) at 10/15/17 1912 Last data filed at 10/15/17 1807 Gross per 24 hour Intake 415 ml Output 2175 ml Net -1760 ml Gen: comfortable appearing. Neuro: negative Access Site: No hematoma or oozing. Pulse: 2+ bilateral femoral pulse Skin: No embolic phenomena in hands/feet. Groin: No hematoma or oozing from right or left femoral artery access sites Extr: 2+ DP pulse right and left foot A/P: No evidence of acute complications following procedure. Continue current post-cath car tom SUERO MD [facility] [address] [place] [id number] Ruth Ann Carvajal PA-C - 10/15/2017 3:36 PM PSTFormatting of this note may be different from t vikash original. BRIEF ELECTROPHYSIOLOGY PROGRESS NOTE Date: 10/15/17 Hospital Day: 5 Hx: Ron Mckeon is a 61 y.o. male with a past medical history significant for CAD s/p an terior STEMI and then cardiac arrest requiring shocks(03/15/2017 requiring ECMO support and intra-aortic balloon pump placement) s/pPCI and stent placement in LCx &LM/LAD, ICM with HFrEF, HTN, paroxysmal atrial flutter (recent Tx with IV amiodarone @ OSH), recent JAVON thro mbus in 02/2017 (warfarindiscontinued after repeat TTE in 04/2017 showed resolution of throm bus), HTN, and prior tobacco abuse who was transferred from an OSH on 10/10/17 for considerati on of revascularization with either a complex PCI vs CABG after an NSTEMI secondary to sepsi s which occluded his prior stents (LCx &LM/LAD) and showed mild-moderate RCA disease. Upon discharge in March 2017, he was discharged home with a LifeVest which was later removed afte r his EF improved in May 2017. EP was consulted for consideration of a primary prevent ion ICD given his current EF is 30-35%. Interval Hx: - 10/13 -- The patient feels well today and is anxious about knowing the plan for revasculari zation. - 10/14 -- patient feels well today. He states that the team has decided to redo a PCI to rev ascularize his thrombosed stents. Undergoing cardiac PET scan today. - 10/15 -- pt feels well after cath and PCI. Current medications: acetaminophen (TYLENOL) tablet 650 mg, 650 mg, oral, Q4H PRN amiodarone (CORDARONE) tablet 200 mg, 200 mg, oral, DAILY artificial tears (dextran 70-hypromellose) (NATURE'S TEARS) 0.1-0.3 % ophthalmic drops 1 dr op, 1 drop, Both Eyes, PRN aspirin chewable tablet 81 mg, 81 mg, oral, DAILY atorvastatin (LIPITOR) tablet 40 mg, 40 mg, oral, DAILY bisacodyl (DULCOLAX) suppository 10 mg, 10 mg, rectal, DAILY PRN carvedilol (COREG) tablet 3.125 mg, 3.125 mg, oral, BID W/MEALS cholecalciferol (Vitamin D3) (VITAMIN D-3) tablet 1,000 Units, 1,000 Units, oral, DAILY clopidogrel (PLAVIX) tablet 75 mg, 75 mg, oral, DAILY gabapentin (NEURONTIN) capsule 300 mg, 300 mg, oral, TID iohexol (OMNIPAQUE) 300 mg iodine/mL, , , INTRAPROCEDURE PRN ketorolac (ACULAR) 0.5 % ophthalmic drops 1 drop, 1 drop, Left Eye, QID magnesium citrate liquid 296 mL, 296 mL, oral, DAILY PRN melatonin tablet 3 mg, 3 mg, oral, QPM ofloxacin (OCUFLOX) 0.3 % ophthalmic drops 1 drop, 1 drop, Left Eye, QID oxyCODONE (immediate release) (ROXICODONE) tablet 5-10 mg, 5-10 mg, oral, Q6H PRN pantoprazole (PROTONIX) tablet 40 mg, 40 mg, oral, BID polyethylene glycol (MIRALAX) packet 17 g, 17 g, oral, BID polyethylene glycol (MIRALAX) packet 34 g, 34 g, oral, TID PRN prednisoLONE acetate (PRED FORTE) 1 % ophthalmic drops, suspension 1 drop, 1 drop, Left Eye , QID senna-docusate (SENOKOT S) 8.6-50 mg 4 tablet, 4 tablet, oral, BID Physical Exam: Vitals: Last Vitals: BP 108/63 | Pulse 73 | Temp 36.4 C (97.5 F) | RR 12 | Ht 1.753 m ( 5' 9") | Wt 88 kg (194 lb) | SpO2 94% | BMI 28.65 kg/(m^2) 24 Hour Vital Min/Max: Systolic (24hrs), Av , Min:85 , Max:134 Diastolic (24hrs), Av, Min:50, Max:89 Pulse Min: 63 Max: 84 Temp Min: 36.3 C (97.3 F) Max: 36.8 C (98.2 F) Resp Min: 12 Max: 20 SpO2 Min: 92 % Max: 97 % Intake/Output Summary (Last 24 hours) at 10/15/17 1637 Last data filed at 10/15/17 1500 Gross per 24 hour Intake 925 ml Output 2175 ml Net -1250 ml Labs: Chemistries: Last 72 Hours (or 3 results): Recent Labs 10/13/17 0405 10/14/17 0425 10/14/17 1749 10/15/17 0436 10/15/17 0925 NA 140 -- 141 -- 139 -- K 4.1 -- 4.3 -- 4.4 -- CL 109* -- 107 -- 105 -- BICARB 24 -- 25 -- 27 -- BUN 20 -- 18 -- 18 -- CR 1.25 -- 1.31* -- 1.52* -- GLU 114* < > 118* 112* 120* 119* CA 8.3* -- 8.5* -- 8.7 -- < > = values in this interval not displayed. CBC with diff last 72 hours (or 3 results) Recent Labs 10/13/17 0405 10/14/17 0424 10/15/17 0436 WBC 7.35 7.44 6.77 HB 11.0* 11.1* 11.5* HCT 32.8* 33.7* 33.9* PLT 209 216 205 TELE: Sinus rhythm with HR's 60-100's bpm 10/15/17: PROCEDURES PERFORMED: 1. Limited coronary angiography. 2. Left heart catheterization. 3. Impella CP device insertion and removal. 4. Percutaneous coronary intervention. IMPRESSION: Successful percutaneous coronary intervention to the ostial left circumflex. One 3.0 x 18 mm Resolute Wallace drug-eluting stent. Successful percutaneous coronary transluminal angiopla sty of the distal left main extending into the left anterior descending coronary artery with final kissing balloon inflation with a 3.5 mm noncompliant and a 2.5 mm compliant balloon. Assessment and Plan: Ron Mckeon is a 61 y.o. male with a past medical history significant for CAD s/p an terior STEMI and then cardiac arrest requiring shocks(03/15/2017 requiring ECMO support and intra-aortic balloon pump placement) s/pPCI and stent placement in LCx &LM/LAD, ICM with HFrEF, HTN, paroxysmal atrial flutter (recent Tx with IV amiodarone @ OSH), recent JAVON thro mbus in 02/2017 (warfarindiscontinued after repeat TTE in 04/2017 showed resolution of throm bus), HTN, and prior tobacco abuse who was transferred from an OSH on 10/10/17 for considerati on of revascularization with either a complex PCI vs CABG after an NSTEMI secondary to sepsi s which occluded his prior stents (LCx &LM/LAD) and showed mild-moderate RCA disease. Upon discharge in March 2017, he was discharged home with a LifeVest which was later removed afte r his EF improved in May 2017. EP was consulted for consideration of a primary prevent ion ICD given his current EF is 30-35%. The patient's history, diagnostic findings and recent events were reviewed with Dr. Darby . The patient underwent a myocardial perfusion study on 10/13/17 and the study was read showkendra schumacher that "extensive severe perfusional defect involving approximately 40% of the left ventricu lar myocardium with severe wall motion abnormality and ejection fraction of 24%". Dr. Zandra ivy and Dr. Darby reviewed these results yesterday and felt that the patient now warrants an EP study to guide an ICD implant. He is tentatively scheduled for the afternoon of Thursday. PARQ will be held with the patient today, but consent was not signed as he was recoverin g from his procedure today and had received conscious sedation. I will have the patient sign the consent tomorrow. Recommendations: - NPO @ [place] - Hold heparin products Ruth Ann Carvajal PA-C 10/15/17 Associated attestation - Sophie Darby MD - 10/15/2017 4:45 PM PSTI have discussed this case with Ms. Alena CHACON, seen the patient, and agree with the plan. Successful PCI of dista l LM and circ and LAD. EPS v-stim with possible INLAYER-D tomorrow (QRS today is 152 atypical LB BB). See yesterdays attestation Sophie Darby MD Cardiovascular Medicine - Electrophysiology [facility] Cardiovascular [place] at [facility] Arya Low MD - 10/15/2017 1:05 PM PSTCARDIOLOGY PRELIMINARY PROCEDURE NOTE Primary Care Provider: Chato Matson MD Referring Provider: Other Dictation Manager Support Services Staff: Tejal Modi M.D. Procedure(s): 1. Coronary angiography 2. Percutaneous coronary intervention 3. Left heart catheterization 4. Impella placement and removal 5. Moderate conscious sedation Indications: Unstable angina, planned LM intervention Access: 14-Thai RFA 6-Thai RFV 7-Thai LFA Post Procedure Access: No evidence of significant hematoma or bleeding Estimated Blood Loss: 50 mL Medications: Fentanyl 100 mcg Route: IV Heparin 8500 units Route: IV Midazolam 3 mg Route: IV Contrast: Omnipaque 110 mL Findings: Severe distal LM into LAD ISR Severe ostial LCx ISR Intervention: PCI with one 3.0 x 18 mm Resolute Alvaro ANY Complications: None Hemostasis: Perclose Recommendations: Return to floor with continued care per primary service Continue clopidogrel 75 mg daily for at least 12 months, consider indefinite therapy given LM bifurcation stenting Continue ASA 81 mg daily indefinitely Continue aggressive cardiac risk factor management and optimal heart failure medical therap y Referral to cardiac rehabilitation Lala Schofield PA-C - 10/15/2017 12:56 PM PSTFormatting of this note may be different fro m the original. IP Cardiology Progress Note Date: 10/15/2017 Hospital Day: 5 Attending Manager Professional Development: Khurram Bedoya MD Provider: LALA SCHOFIELD PA-C Primary Care Provider: Chato Matson MD Outpatient Manager Professional Development: Dr Jamal Guerrero MD ID:Ron Mckeon is a 61 year old male with past medical history of CAD s/p anterior CHERY NC 03/2017 with cardiogenic shock s/p PCI with ANY to LM/LAD and LCx with ECMO support, systo lic heart failure (EF 20-25%), ischemic cardiomyopathy, hypertension, Atrial flutter, prior tobacco use, recent JAVON thrombus on anticoagulation, Influenza A with septic shock (10/03) re quiring intubation and mechanical ventilation, HAP on treatment who was admitted in transfer from [place] on 10/11 for consideration of PCI vs CABG in setting of NSTEMI with in stent retenosis of both LM into LAD and LCx stents Interval Events: - soft BPs to mid 90s this morning - planning for PCI with impella support today - loaded with plavix yesterday - Cr 1.3 => 1.5. Did not get any lasix or lisinopril. Subjective: No new symptoms overnight. Denies dizziness/lightheadness with ambulation. No chest pain. N o dyspnea. Nervous about the procedure but excited to get it done. Current Inpatient Medications: acetaminophen (TYLENOL) tablet 650 mg, 650 mg, oral, Q4H PRN amiodarone (CORDARONE) tablet 200 mg, 200 mg, oral, DAILY artificial tears (dextran 70-hypromellose) (NATURE'S TEARS) 0.1-0.3 % ophthalmic drops 1 dr op, 1 drop, Both Eyes, PRN aspirin chewable tablet 81 mg, 81 mg, oral, DAILY atorvastatin (LIPITOR) tablet 40 mg, 40 mg, oral, DAILY bisacodyl (DULCOLAX) suppository 10 mg, 10 mg, rectal, DAILY PRN carvedilol (COREG) tablet 3.125 mg, 3.125 mg, oral, BID W/MEALS cholecalciferol (Vitamin D3) (VITAMIN D-3) tablet 1,000 Units, 1,000 Units, oral, DAILY clopidogrel (PLAVIX) tablet 75 mg, 75 mg, oral, DAILY fentaNYL (SUBLIMAZE) injection, , intravenous, INTRAPROCEDURE PRN fentaNYL (SUBLIMAZE) injection, , intravenous, INTRAPROCEDURE PRN fentaNYL (SUBLIMAZE) injection, , intravenous, INTRAPROCEDURE PRN fentaNYL (SUBLIMAZE) injection, , intravenous, INTRAPROCEDURE PRN gabapentin (NEURONTIN) capsule 300 mg, 300 mg, oral, TID heparin 1,000 unit/mL injection, , intravenous, INTRAPROCEDURE PRN heparin 1,000 unit/mL injection, , intravenous, INTRAPROCEDURE PRN heparin 1,000 unit/mL injection, , intravenous, INTRAPROCEDURE PRN ketorolac (ACULAR) 0.5 % ophthalmic drops 1 drop, 1 drop, Left Eye, QID lidocaine (XYLOCAINE) 10 mg/mL (1 %) injection, , infiltration, INTRAPROCEDURE PRN lidocaine (XYLOCAINE) 10 mg/mL (1 %) injection, , infiltration, INTRAPROCEDURE PRN lidocaine (XYLOCAINE) 10 mg/mL (1 %) injection, , infiltration, INTRAPROCEDURE PRN magnesium citrate liquid 296 mL, 296 mL, oral, DAILY PRN melatonin tablet 3 mg, 3 mg, oral, QPM midazolam (PF) (VERSED) injection, , , INTRAPROCEDURE PRN midazolam (PF) (VERSED) injection, , , INTRAPROCEDURE PRN midazolam (PF) (VERSED) injection, , , INTRAPROCEDURE PRN ofloxacin (OCUFLOX) 0.3 % ophthalmic drops 1 drop, 1 drop, Left Eye, QID oxyCODONE (immediate release) (ROXICODONE) tablet 5-10 mg, 5-10 mg, oral, Q6H PRN pantoprazole (PROTONIX) tablet 40 mg, 40 mg, oral, BID polyethylene glycol (MIRALAX) packet 17 g, 17 g, oral, BID polyethylene glycol (MIRALAX) packet 34 g, 34 g, oral, TID PRN prednisoLONE acetate (PRED FORTE) 1 % ophthalmic drops, suspension 1 drop, 1 drop, Left Eye , QID senna-docusate (SENOKOT S) 8.6-50 mg 4 tablet, 4 tablet, oral, BID sodium chloride 0.9% IV infusion, , , PRN sodium chloride 0.9% IV infusion, , , PRN Physical Exam: Last Vitals: BP 102/68 | Pulse 75 | Temp 36.4 C (97.5 F) | RR 12 | Ht 1.753 m (5' 9") | Wt 88 kg (194 lb) | SpO2 94% | BMI 28.65 kg/(m^2) 24 Hour Vital Min/Max: Systolic (24hrs), Av , Min:94 , Max:134 Diastolic (24hrs), Av, Min:61, Max:89 Pulse Min: 74 Max: 83 Temp Min: 36.3 C (97.3 F) Max: 36.8 C (98.2 F) Resp Min: 12 Max: 20 SpO2 Min: 92 % Max: 97 % Intake/Output Summary (Last 24 hours) at 10/15/17 1256 Last data filed at 10/15/17 0814 Gross per 24 hour Intake 1325 ml Output 2325 ml Net -1000 ml General Appearance: well appearing man, alert and energetic Respiratory: Unlabored breathing. CTAB without wheezes, crackles or rhonchi Cardiovascular: very distant heart tones but cannot appreciate murmur and sounds regular. 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 CBC with diff last 72 hours (or 3 results) - Refreshable Recent Labs 10/13/1740410/14/17 0424 10/15/17 0436 WBC 7.35 7.44 6.77 HB 11.0* 11.1* 11.5* HCT 32.8* 33.7* 33.9* PLT 209 216 205 No results for input(s): AST, ALT, TBILI, AP, ALB, TP in the last 72 hours. Lab Results Component Value Date CHOL 89 10/10/2017 LDL 42 10/10/2017 HDL 21 10/10/2017 TRI 131 10/10/2017 Lab Results Component Value Date INRPT 1.11 10/15/2017 Lab Results Component Value Date TROPONIN 0.95 03/30/2017 TROPONIN 1.30 03/30/2017 TROPONIN 1.08 03/30/2017 TROPONIN 0.89 03/30/2017 TROPONIN 0.41 03/29/2017 No results found for: NTPROBNP No results found for: FREET4, TSH, TPOAB, THYROGLOB, THYROGLOBAB, [id number] Lab Results Component Value Date A1C 5.9 10/11/2017 A1C 5.6 03/26/2017 EKG: sinus with LBBB. QTc 511 TTE 10/11/17: 1. The left ventricular cavity size is normal. 2. The LV function is severely abnormal. 3. Left ventricular systolic thickening is segmentally abnormal (see comments below). 4. Visually estimated left ventricular ejection fraction is 30 - 35%. 5. RV cavity size is normal. RV global systolic function is mildly reduced. 6. There is mild dilatation of the ascending aorta. (See comments below). 7. Compared to the most recent exam dated, 03/30/2017, the LVEF is similar. CXR 10/11/17: Patchy groundglass opacities in the left lower lobe may represent developing pneumonia in t he appropriate clinical setting. NM Myocardial perfusion study 10/13/17: Extensive severe perfusional defect involving approximately 40% of the left ventricular helene cardium with severe wall motion abnormality and ejection fraction of 24%. This study is timothy gorized as high risk. PET scan cardiac 10/13/17: FDG cardiac PET demonstrates severely decreased to absent tracer uptake along the anterior mid to distal wall, mid to distal interventricular septum, and apex. Tracer uptake is seen w ithin the rest of the left ventricle. Review of the separate myocardial rest perfusion Tc-Sestamibi demonstrates extensive severe perfusional defect involving the same areas as described above. The non contrast CT for attenuation and localization was also reviewed. No suspicious pul monary nodules are identified. Small bilateral pleural effusions are present. No suspicious osseous lesions are identified IMPRESSION: No tracer uptake within the mid to distal anterior wall/interventricular septum and apex co rresponding to same non-perfused areas seen on myocardial rest perfusion Tc-Sestamibi, ronan tible with nonviable myocardium EGD 10/05/17 at OSH Indication: Suspected UGIB - Normal upper third of esophagus, middle third of esophagus and lower third of esophagus. - Acute gastritis. - Non-bleeding gastric ulcers with pigmented material. Clips were placed. - Friable duodenal mucosa. - Normal first portion of the duodenum, second portion of the duodenum, area of the papilla and third portion of the duodenum. - No specimens collected. LHC and selective coronary angiography 10/04/17 summary (full report in [facility]): 1.Systemic hypotension, upper normal left ventricular end-diastolic pressure 2.Severe in-stent stenosis of left main to ostial LAD stent 3.Severe in-stent stenosis ostial proximal left circumflex stent 4.Mild to moderate RCA disease 5.ANNA grade 1 flow to distal LAD Assessment & Plan: # CAD with in stent resteonsis of LM/LAD and LCx stents # NSTEMI History of anterior STEMI and cardiac arrest requiring shocks (03/15/2017 requiring ECMO supp ort and intra-aortic balloon pump placement) s/pPCI and stent placement in LCx &LM/LAD. He then developed NSTEMI 10/03/17 (trop peaked at 27) in setting of severe sepsis due to infl uenza and underwent a coronary angiogram at [place] which revealed in stent re-stenosis of both LM into LAD and LCx stents, mild disease of RCA. Transferred to [facility] for further onel luation. CTS was consulted for consideration of CABG vs complex PCI. Due to nonviable myocardium archie wn on cardiac PET and resting NM perfusion study, he will proceed with PCI tomorrow with Imp tania support. -- to dairy laboratory technician today for PCI with impella support --ASA 81 mg daily --atorvastatin 40 mg daily (lower dose in setting of concurrent amiodarone) --reduce carvedilol back to 3.125mg bid due to soft BPs --start plavix 75mg daily -- pantoprazole for prophy given DAPT # Chronic biventricular systolic heart failure with reduced systolic function (EF 30-35%) # Ischemic cardiomyopathy NYHA class II-III, Stage C. Etiology ischemic. TTE at [facility] showed EF 30-35%, mildly reduced RV function, mild dilation of ascending aorta. Currently appears euvolemic. Given EF remain s low and myocardial perfusion study shows extensive severe perfusional defect involving 40% of the LV myocardium with an EF of 24%, EP was consulted for consideration of ICD. Per EP, he will undergo EP study to guide ICD implant--tentatively scheduled for 10/16. --preload: holding diuresis --afterload: holding lisinopril (AYLIN, PCI contrast load, should be initiated p rior to DC) --contractility: carvedilol as above --aldosterone antagonist: pt unable to tolerate spironolactone due to hyperkal emia in the past --ICD: EP consulting and planning for EP study tentatively 10/16 to assess for I CD need # Paroxysmal Aflutter Noted Aflutter with RVR at admission in [place]; treated with amiodarone infusion. Now maintaining SR on oral amio. CHADS-VASC 3, HAS-BLED 3. Was previously on heparin infusion fo r NSTEMI but this has been stopped and AC was not started in anticipation of PCI. --rate control: carvedilol as above --rhythm control: continue amiodarone 200 mg daily for now --anticoagulation: Resume warfarin after PCI # Influenza type A - resolved # Community acquired pneumonia # Severe sepsis with shock, resolved Pt presented to [facility] 10/03 found to be Flu A positive with severe sepsis and respirat ory failure. Pt was intubated, started on oseltamivir and azithromycin, ceftriaxone. He comp leted 6 days of oseltamivir and 10 days of antibiotics as of 10/12. Cough has resolved. CXR 10/11 showed lingering GGO which is to be expected. # Suspected UGIB s/p 2 clips Pt developed hgb drop from 16 to 12 in setting of sepsis management , fluid resuscitation. EGD at [place] on 10/05 showed gastritis, duodenitis, linear ulcerations without active b leeding s/p clipping x 2. He has thus far tolerated DAPT and heparin infusion without signs of bleeding --continue protonix 40 mg BID --follow up with GI as outpatient --CBC daily, if symptoms or signs of bleeding check more frequently # Pre diabetes A1c 5.6 on this admission. On metformin 500 mg BID at home. Holding during this admission. FEN/GI:NPO for PCI Prophylaxis: holding heparin as above, ambulatory Glucose: see above Contact Precautions: standard Lines/catheters: PIV Problem list updated: yes Disposition: > 24 hours Follow up: Will need PCP, Cardiology CODE: FC/FT This patient was interviewed and examined by attending laboratory engineer, Dr. Khurram Bedoya MD , who is in agreement with above described findings, assessment and plan. LALA SCHOFIELD PA-C Cardiovascular Medicine [facility] Pager [phone] I spent 38 minutes in coordination of care and [id number] with the patient and/or their surrogate in which the following was discussed: plan for PCI with impella support today, hea rt failure, anticoagulation for aflutter, discharge planning Associated attestation - Khurram Bedoya MD - 10/15/2017 1:15 PM PSTCardiology Attendi I have seen and examined Mr. Mckeon and discussed the patient's management with the essentia healthed practitioner. I reviewed the practitioner's note above and agree with the documented f indings and plan of care. KHURRAM BEDOYA MD Director of the [facility] Hypertrophic Cardiomyopathy Record Clerk of Echocardiography Paper Cutter Operatorfront line supervisor Division of Cardiovascular Medicine Ruth Ann Carvajal PA-C - 10/14/2017 12:05 PM PSTFormatting of this note may be different from t vikash original. ELECTROPHYSIOLOGY PROGRESS NOTE Date: 10/14/17 Hospital Day: 4 Hx: Ron Mckeon is a 61 y.o. male with a past medical history significant for CAD s/p an terior STEMI and then cardiac arrest requiring shocks (03/15/2017 requiring ECMO support and i ntra-aortic balloon pump placement) s/p PCI and stent placement in LCx & LM/LAD, ICM with HF rEF, HTN, paroxysmal atrial flutter (recent Tx with IV amiodarone @ OSH), recent JAVON thrombu s in 02/2017 (warfarin discontinued after repeat TTE in 04/2017 showed resolution of thrombus) , HTN, and prior tobacco abuse who was transferred from an OSH on 10/10/17 for consideration o f revascularization with either a complex PCI vs CABG after an NSTEMI secondary to sepsis wh ich occluded his prior stents (LCx & LM/LAD) and showed mild-moderate RCA disease. Upon disc harge in March 2017, he was discharged home with a LifeVest which was later removed after his EF improved in May 2017. EP was consulted for consideration of a primary prevention I CD given his current EF is 30-35%. Interval Hx: - 10/13 -- The patient feels well today and is anxious about knowing the plan for revasculari zation. - 10/14 -- patient feels well today. He states that the team has decided to redo a PCI to rev ascularize his thrombosed stents. Undergoing cardiac PET scan today. Current medications: acetaminophen (TYLENOL) tablet 650 mg, 650 mg, oral, Q4H PRN amiodarone (CORDARONE) tablet 200 mg, 200 mg, oral, DAILY artificial tears (dextran 70-hypromellose) (NATURE'S TEARS) 0.1-0.3 % ophthalmic drops 1 dr op, 1 drop, Both Eyes, PRN aspirin chewable tablet 81 mg, 81 mg, oral, DAILY atorvastatin (LIPITOR) tablet 40 mg, 40 mg, oral, DAILY bisacodyl (DULCOLAX) suppository 10 mg, 10 mg, rectal, DAILY PRN carvedilol (COREG) tablet 6.25 mg, 6.25 mg, oral, BID W/MEALS cholecalciferol (Vitamin D3) (VITAMIN D-3) tablet 1,000 Units, 1,000 Units, oral, DAILY gabapentin (NEURONTIN) capsule 300 mg, 300 mg, oral, TID magnesium citrate liquid 296 mL, 296 mL, oral, DAILY PRN melatonin tablet 3 mg, 3 mg, oral, QPM oxyCODONE (immediate release) (ROXICODONE) tablet 5-10 mg, 5-10 mg, oral, Q6H PRN pantoprazole (PROTONIX) tablet 40 mg, 40 mg, oral, BID polyethylene glycol (MIRALAX) packet 17 g, 17 g, oral, BID polyethylene glycol (MIRALAX) packet 34 g, 34 g, oral, TID PRN senna-docusate (SENOKOT S) 8.6-50 mg 4 tablet, 4 tablet, oral, BID tirofiban (AGGRASTAT) 12.5 mg/250 mL (0.05 mg/mL) IV infusion, 0.15 mcg/kg/min, intravenous , CONTINUOUS Physical Exam: Vitals: Last Vitals: BP 105/64 | Pulse 79 | Temp 36.5 C (97.7 F) | RR 16 | Ht 1.753 m ( 5' 9") | Wt 88 kg (194 lb) | SpO2 94% | BMI 28.65 kg/(m^2) 24 Hour Vital Min/Max: Systolic (24hrs), Av , Min:102 , Max:136 Diastolic (24hrs), Av, Min:60, Max:83 Pulse Min: 73 Max: 90 Temp Min: 36.4 C (97.5 F) Max: 36.8 C (98.2 F) Resp Min: 16 Max: 16 SpO2 Min: 88 % Max: 100 % Intake/Output Summary (Last 24 hours) at 10/14/17 1545 Last data filed at 10/14/17 1400 Gross per 24 hour Intake 1040 ml Output 850 ml Net 190 ml General: NAD Labs: Chemistries: Last 72 Hours (or 3 results): Recent Labs 10/12/17 0701 10/13/17 0405 10/13/17 1649 10/13/17 1936 10/14/17 0425 NA 141 -- 140 -- -- -- 141 K 3.8 -- 4.1 -- -- -- 4.3 CL 107 -- 109* -- -- -- 107 BICARB 24 -- 24 -- -- -- 25 BUN 21* -- 20 -- -- -- 18 CR 1.31* -- 1.25 -- -- -- 1.31* GLU 108* < > 114* < > 143* 89 118* CA 8.2* -- 8.3* -- -- -- 8.5* < > = values in this interval not displayed. CBC with diff last 72 hours (or 3 results) Recent Labs 10/12/17 0701 10/13/17 0405 10/14/17 0424 WBC 6.50 7.35 7.44 HB 11.3* 11.0* 11.1* HCT 33.7* 32.8* 33.7* PLT 198 209 216 EK10/10/17: sinus rhythm, HR 79 bpm, LBBB, and prolonged QT interval: QT/QTc: 445/511 msec Tele over past 24 hours: Sinus rhythm with HR's 60-100's bpm Echo: 10/11/17: Transthoracic Echocardiographic Report + + Final Impressions: 1. The left ventricular cavity size is normal. 2. The LV function is severely abnormal. 3. Left ventricular systolic thickening is segmentally abnormal (see comments below). 4. Visually estimated left ventricular ejection fraction is 30 - 35%. 5. RV cavity size is normal. RV global systolic function is mildly reduced. 6. There is mild dilatation of the ascending aorta. (See comments below). 7. Compared to the most recent exam dated, 03/30/2017, the LVEF is similar. Left Ventricle: The left ventricular cavity size is normal. Visually estimated left ventric ular ejection fraction is 30 - 35%. The ejection fraction is 32.2 % as measured by Landry's biplane method. The LV function is severely abnormal. Due to poor endocardial definition, u ltrasound contrast was used (Lumason). Left Ventricular Wall Motion: The entire inferior septum, mid and apical anterior septum, a pical anterior segment, and apex are akinetic. The basal anteroseptal segment, mid anterior segment, and mid inferior segment are hypokinetic. All remaining scored segments are normal. Left ventricular systolic thickening is segmentally abnormal. 10/03/17: TTE @ [facility] Summary The number of aortic valve leaflets cannot be identified. The left atrium is mildly dilated. Normal left ventricular cavity size. Mild concentric left ventricular hypertrophy. Ejection fraction is visually estimated at 40%. Thinning and severe hypokinesis distal anterior, anterior septal, and apical segments Aortic root dimension within normal limits. Mild mitral regurgitation present. No evidence of any pericardial effusion. The pulmonic valve was not well visualized. Normal right atrial size. Normal right ventricular size and function. Structurally normal tricuspid valve without significant stenosis or regurgitation. Insufficient amount of tricuspid regurgitation for estimation of pulmonary artery pressures . When compared with images of previous echo 06/04/17, no significant changes. 06/04/2017: TTE Conclusions Summary 1. Mild left atrial dilatation. 2. Normal left ventricular size. There is a mild hypokinesis of the anterior wall. Overall, left ventricular systolic function is low-normal. LVEF is 50-55%. 3. Normal valvular structure. 4. Mild pulmonary hypertension with a peak systolic pressure 40-45 mmHg. 5. Normal IVC with normal respiratory collapse. 6. When compared to echocardiography on 05/07/17, left ventricular systolic function is sign ificantly improved and now normalized. 03/30/17: Transthoracic Echocardiographic Report + + Final Impressions: 1. The left ventricular cavity size is normal. 2. Visually estimated left ventricular ejection fraction is 30 - 35%. 3. Left ventricular systolic thickening is segmentally abnormal (see comments below). 4. Right ventricular size, thickness and function are normal. 5. Compared to the most recent exam dated, 03/19/17, the LVEF has improved slightly. Segment al wall motion abnormalities remain. CARDIAC CATHETERIZATION: DATE OF PROCEDURE:10/03/17 @ [facility] CORONARY ANGIOGRAPHY DOMINANCE: Right LEFT MAIN ARTERY: Medium caliber vessel, vessel caliber tapers distally, eccentric 50% distal bifurcation lesion within previous stent LEFT ANTERIOR DESCENDING ARTERY: 70% ostial in-stent stenosis, medium caliber first diagonal branch with mild luminal irregularity, moderate diffuse mid to distal LAD disease with ANNA grade 1 flow to distal LAD CIRCUMFLEX ARTERY: Medium caliber vessel, 95-99% ostial and proximal in-stent stenosis, small caliber first obtuse marginal branch, for additional more distal obtuse marginal branches of medium caliber with mild to moderate diffuse disease RIGHT CORONARY ARTERY: Medium caliber vessel arising from right coronary cusp, and dominant, 30% proximal stenosis, diffuse 40-50% mid vessel disease, mild luminal irregularity in distal branches including PDA and posterior lateral branches CONTRAST LEFT VENTRICULOGRAPHY: Not performed CONCLUSIONS: 1.Systemic hypotension, upper normal left ventricular end-diastolic pressure 2.Severe in-stent stenosis of left main to ostial LAD stent 3.Severe in-stent stenosis ostial proximal left circumflex stent 4.Mild to moderate RCA disease 5.ANNA grade 1 flow to distal LAD Selective left and right coronary angiography: 04/02/2017: SUMMARY 1.Patent left main to LAD stent and patent left circumflex stent. 2.First obtuse marginal is jailed by the stent and is small in caliber wi th high-grade ostial disease. 3.Moderate nonobstructive coronary 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 otherwise. SPECT Myocardial Perfusion Study 10/13/17 09:54:20 HISTORY: Myocardial infarction COMPARISON : None TECHNIQUE: This is a one day (rest only) study. The rest portion was performed on 10/13/17. The patient was injected with 29.1 mCi Tc 99m sestamibi. Gated SPECT images were acquired one hour after injection. FINDINGS: On rest projection images, there is significant patient motion. There is no signifi cant soft tissue attenuation. On rest SPECT images, there is an extensive severe defect involving the anterior mi d to distal wall, apex, and anterior septum, involving approximately 40% of the left ventric ular myocardium. Left ventricle wall motion of the affected region is akinetic and dyskinetic and br ightening is nearly absent. LVEF is calculated to be 24%. IMPRESSION: Extensive severe perfusional defect involving approximately 40% of the left ventricular helene cardium with severe wall motion abnormality and ejection fraction of 24%. This study is timothy gorized as high risk. Assessment and Plan: Ron Mckeon is a 61 y.o. male with a past medical history significant for CAD s/p an terior STEMI and then cardiac arrest requiring shocks (03/15/2017 requiring ECMO support and i ntra-aortic balloon pump placement) s/p PCI and stent placement in LCx & LM/LAD, ICM with HF rEF, HTN, paroxysmal atrial flutter (recent Tx with IV amiodarone @ OSH), recent JAVON thrombu s in 02/2017 (warfarin discontinued after repeat TTE in 04/2017 showed resolution of thrombus) , HTN, and prior tobacco abuse who was transferred from an OSH on 10/10/17 for consideration o f revascularization with either a complex PCI vs CABG after an NSTEMI secondary to sepsis wh ich occluded his prior stents (LCx & LM/LAD) and showed mild-moderate RCA disease. Upon disc harge in March 2017, he was discharged home with a LifeVest which was later removed after his EF improved in May 2017. EP was consulted for consideration of a primary prevention I CD given his current EF is 30-35%. The patient's history, diagnostic findings and recent events were reviewed with Dr. Darby . The patient underwent a myocardial perfusion study yesterday and the study was read today (above) showing that "extensive severe perfusional defect involving approximately 40% of the left ventricular myocardium with severe wall motion abnormality and ejection fraction of 24 %". Dr. Bedoya and Dr. Darby reviewed these results and feel that the patient now warrant s an EP study to guide an ICD implant. He is tentatively scheduled for the afternoon of ay 10/16. PARQ will be held with the patient tomorrow. Ruth Ann Carvajal PA-C 10/14/17 Associated attestation - Sophie Darby MD - 10/15/2017 4:37 PM PSTI have discussed this case with Ms. Alena CHACON, seen the patient. I later spoke with Dr. 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 Given NSVT and EF 30-35%, we will therefore proceed to an EP study with implantation o f an ICD if she has inducible VT. Given atypical LBBB QRS 147 and current functional status 3 (prior 1-2 by report) and concern for lack of EF recovery, we would plan for INLAYER with His- bundle lead if needed. Sophie Darby MD Cardiovascular Medicine - Electrophysiology [facility] Cardiovascular [place] at [facility] Lala Schofield PA-C - 10/14/2017 11:58 AM PSTFormatting of this note may be different fro m the original. IP Cardiology Progress Note Date: 10/14/2017 Hospital Day: 4 Attending Manager Professional Development: Khurram Bedoya MD Provider: LALA SCHOFIELD PA-C Primary Care Provider: Chato Matson MD Outpatient Manager Professional Development: Dr Jamal Guerrero MD ID:Ron Mckeon is a 61 year old male with past medical history of CAD s/p anterior CHERY NC 03/2017 with cardiogenic shock s/p PCI with ANY to LM/LAD and LCx with ECMO support, systo lic heart failure (EF 20-25%), ischemic cardiomyopathy, hypertension, Atrial flutter, prior tobacco use, recent JAVON thrombus on anticoagulation, Influenza A with septic shock (10/03) re quiring intubation and mechanical ventilation, HAP on treatment who was admitted in transfer from [place] on 10/11 for consideration of PCI vs CABG in setting of NSTEMI with in stent retenosis of both LM into LAD and LCx stents Interval Events: - nuc med/PET showed nonviable myocardium, thus pt will proceed with PCI tomorrow rather th an CABG - carvedilol increased from 3.125mg bid to 6.25mg bid due to ectopy Subjective: Pt very excited and relieved to hear he doesn't need CABG. Feels really well overall; ambul ating without difficulty, walking halls constantly to get exercise, no dyspnea or CP. Very t hankful of care provided at [facility] Current Inpatient Medications: acetaminophen (TYLENOL) tablet 650 mg, 650 mg, oral, Q4H PRN amiodarone (CORDARONE) tablet 200 mg, 200 mg, oral, DAILY artificial tears (dextran 70-hypromellose) (NATURE'S TEARS) 0.1-0.3 % ophthalmic drops 1 dr op, 1 drop, Both Eyes, PRN aspirin chewable tablet 81 mg, 81 mg, oral, DAILY atorvastatin (LIPITOR) tablet 40 mg, 40 mg, oral, DAILY bisacodyl (DULCOLAX) suppository 10 mg, 10 mg, rectal, DAILY PRN carvedilol (COREG) tablet 6.25 mg, 6.25 mg, oral, BID W/MEALS cholecalciferol (Vitamin D3) (VITAMIN D-3) tablet 1,000 Units, 1,000 Units, oral, DAILY gabapentin (NEURONTIN) capsule 300 mg, 300 mg, oral, TID magnesium citrate liquid 296 mL, 296 mL, oral, DAILY PRN melatonin tablet 3 mg, 3 mg, oral, QPM oxyCODONE (immediate release) (ROXICODONE) tablet 5-10 mg, 5-10 mg, oral, Q6H PRN pantoprazole (PROTONIX) tablet 40 mg, 40 mg, oral, BID polyethylene glycol (MIRALAX) packet 17 g, 17 g, oral, BID polyethylene glycol (MIRALAX) packet 34 g, 34 g, oral, TID PRN senna-docusate (SENOKOT S) 8.6-50 mg 4 tablet, 4 tablet, oral, BID tirofiban (AGGRASTAT) 12.5 mg/250 mL (0.05 mg/mL) IV infusion, 0.15 mcg/kg/min, intravenous , CONTINUOUS Physical Exam: Last Vitals: BP 136/83 | Pulse 85 | Temp 36.5 C (97.7 F) | RR 16 | Ht 1.753 m (5' 9") | Wt 88 kg (194 lb) | SpO2 100% | BMI 28.65 kg/(m^2) 24 Hour Vital Min/Max: Systolic (24hrs), Av , Min:93 , Max:136 Diastolic (24hrs), Av, Min:60, Max:83 Pulse Min: 71 Max: 90 Temp Min: 36.4 C (97.5 F) Max: 36.8 C (98.2 F) Resp Min: 16 Max: 16 SpO2 Min: 88 % Max: 100 % Intake/Output Summary (Last 24 hours) at 10/14/17 1158 Last data filed at 10/14/17 1100 Gross per 24 hour Intake 240 ml Output 400 ml Net -160 ml General Appearance: well appearing man, alert and energetic Respiratory: Unlabored breathing. CTAB without wheezes, crackles or rhonchi Cardiovascular: RRR without M/R/G Gastrointestinal: soft, BS normal, nontender Extremities: no edema, wwp Diagnostic Data: Chemistries: Last 72 Hours (or 3 results) - Refreshable Recent Labs 10/12/17 0701 10/13/17 0405 10/13/17 1649 10/13/17 1936 10/14/17 0425 NA 141 -- 140 -- -- -- 141 K 3.8 -- 4.1 -- -- -- 4.3 CL 107 -- 109* -- -- -- 107 BICARB 24 -- 24 -- -- -- 25 BUN 21* -- 20 -- -- -- 18 CR 1.31* -- 1.25 -- -- -- 1.31* GLU 108* < > 114* < > 143* 89 118* CA 8.2* -- 8.3* -- -- -- 8.5* < > = values in this interval not displayed. CBC with diff last 72 hours (or 3 results) - Refreshable Recent Labs 10/12/17 0701 10/13/17 0405 10/14/17 0424 WBC 6.50 7.35 7.44 HB 11.3* 11.0* 11.1* HCT 33.7* 32.8* 33.7* PLT 198 209 216 No results for input(s): AST, ALT, TBILI, AP, ALB, TP in the last 72 hours. Lab Results Component Value Date CHOL 89 10/10/2017 LDL 42 10/10/2017 HDL 21 10/10/2017 TRI 131 10/10/2017 Lab Results Component Value Date INRPT 1.08 10/10/2017 Lab Results Component Value Date TROPONIN 0.95 03/30/2017 TROPONIN 1.30 03/30/2017 TROPONIN 1.08 03/30/2017 TROPONIN 0.89 03/30/2017 TROPONIN 0.41 03/29/2017 No results found for: NTPROBNP No results found for: FREET4, TSH, TPOAB, THYROGLOB, THYROGLOBAB, [id number] Lab Results Component Value Date A1C 5.9 10/11/2017 A1C 5.6 03/26/2017 EKG: sinus with LBBB. QTc 511 TTE 10/11/17: 1. The left ventricular cavity size is normal. 2. The LV function is severely abnormal. 3. Left ventricular systolic thickening is segmentally abnormal (see comments below). 4. Visually estimated left ventricular ejection fraction is 30 - 35%. 5. RV cavity size is normal. RV global systolic function is mildly reduced. 6. There is mild dilatation of the ascending aorta. (See comments below). 7. Compared to the most recent exam dated, 03/30/2017, the LVEF is similar. CXR 10/11/17: Patchy groundglass opacities in the left lower lobe may represent developing pneumonia in t he appropriate clinical setting. NM Myocardial perfusion study 10/13/17: Extensive severe perfusional defect involving approximately 40% of the left ventricular helene cardium with severe wall motion abnormality and ejection fraction of 24%. This study is timothy gorized as high risk. PET scan cardiac 10/13/17: FDG cardiac PET demonstrates severely decreased to absent tracer uptake along the anterior mid to distal wall, mid to distal interventricular septum, and apex. Tracer uptake is seen w ithin the rest of the left ventricle. Review of the separate myocardial rest perfusion Tc-Sestamibi demonstrates extensive severe perfusional defect involving the same areas as described above. The non contrast CT for attenuation and localization was also reviewed. No suspicious pul monary nodules are identified. Small bilateral pleural effusions are present. No suspicious osseous lesions are identified IMPRESSION: No tracer uptake within the mid to distal anterior wall/interventricular septum and apex co rresponding to same non-perfused areas seen on myocardial rest perfusion Tc-Sestamibi, ronan sussy with nonviable myocardium EGD 10/05/17 at OSH Indication: Suspected UGIB - Normal upper third of esophagus, middle third of esophagus and lower third of esophagus. - Acute gastritis. - Non-bleeding gastric ulcers with pigmented material. Clips were placed. - Friable duodenal mucosa. - Normal first portion of the duodenum, second portion of the duodenum, area of the papilla and third portion of the duodenum. - No specimens collected. LHC and selective coronary angiography 10/04/17 summary (full report in CareEverywhere): 1.Systemic hypotension, upper normal left ventricular end-diastolic pressure 2.Severe in-stent stenosis of left main to ostial LAD stent 3.Severe in-stent stenosis ostial proximal left circumflex stent 4.Mild to moderate RCA disease 5.ANNA grade 1 flow to distal LAD Assessment & Plan: # CAD with in stent resteonsis of LM/LAD and LCx stents # NSTEMI History of anterior STEMI and cardiac arrest requiring shocks (03/15/2017 requiring ECMO supp ort and intra-aortic balloon pump placement) s/pPCI and stent placement in LCx &LM/LAD. He then developed NSTEMI 10/03/17 (trop peaked at 27) in setting of severe sepsis due to infl uenza and underwent a coronary angiogram at [place] which revealed in stent re-stenosis of both LM into LAD and LCx stents, mild disease of RCA. Transferred to [facility] for further onel luation. CTS was consulted for consideration of CABG vs complex PCI. Due to nonviable myocardium archie wn on cardiac PET and resting NM perfusion study, he will proceed with PCI tomorrow with Imp tania support. --ASA 81 mg daily --atorvastatin 40 mg daily (lower dose in setting of concurrent amiodarone) --carvedilol 6.25 mg BID given NSVT --Stop tirofiban infusion, give plavix 600mg x 1. Start plavix 75mg daily meet rrow -- pantoprazole for prophy given DAPT -- NPO for PCI tomorrow with impella support. May need to recover in CVICU depending on co urse # Chronic biventricular systolic heart failure with reduced systolic function (EF 30-35%) # Ischemic cardiomyopathy NYHA class II-III, Stage C. Etiology ischemic. TTE at [facility] showed EF 30-35%, mildly reduced RV function, mild dilation of ascending aorta. Currently appears euvolemic. Given EF remain s low and myocardial perfusion study shows extensive severe perfusional defect involving 40% of the LV myocardium with an EF of 24%, EP was consulted for consideration of ICD. Per EP, he will undergo EP study to guide ICD implant--tentatively scheduled for 10/16. --preload: holding diuresis --afterload: holding lisinopril (AYLIN, PCI contrast load, should be initiated p rior to DC) --contractility: carvedilol as above --aldosterone antagonist: pt unable to tolerate spironolactone due to hyperkal emia in the past --ICD: EP consulting and planning for EP study tentatively 10/16 to assess for I CD need # Paroxysmal Aflutter Noted Aflutter with RVR at admission in [place]; treated with amiodarone infusion. Now maintaining SR on oral amio. CHADS-VASC 3, HAS-BLED 3. Was previously on heparin infusion fo r NSTEMI but this has been stopped and AC was not started in anticipation of PCI. --rate control: carvedilol as above --rhythm control: continue amiodarone 200 mg daily for now --anticoagulation: Resume warfarin after PCI # Influenza type A - resolved # Community acquired pneumonia # Severe sepsis with shock, resolved Pt presented to [facility] 10/03 found to be Flu A positive with severe sepsis and respirat ory failure. Pt was intubated, started on oseltamivir and azithromycin, ceftriaxone. He comp leted 6 days of oseltamivir and 10 days of antibiotics as of 10/12. Cough has resolved. CXR 10/11 showed lingering GGO which is to be expected. # Suspected UGIB s/p 2 clips Pt developed hgb drop from 16 to 12 in setting of sepsis management , fluid resuscitation. EGD at [facility] on 10/05 showed gastritis, duodenitis, linear ulcerations without active b leeding s/p clipping x 2. He has thus far tolerated DAPT and heparin infusion without signs of bleeding --continue protonix 40 mg BID --follow up with GI as outpatient --CBC daily, if symptoms or signs of bleeding check more frequently # Pre diabetes A1c 5.6 on this admission. On metformin 500 mg BID at home. Holding during this admission. FEN/GI: heart healthy, NPO midnight for PCI Prophylaxis: holding heparin as above, ambulatory Glucose: see above Contact Precautions: standard Lines/catheters: PIV Problem list updated: yes Disposition: > 24 hours Follow up: Will need PCP, Cardiology CODE: FC/FT This patient was interviewed and examined by attending laboratory engineer, Dr. Khurram Bedoya MD , who is in agreement with above described findings, assessment and plan. LALA SCHOFIELD PA-C Cardiovascular Medicine [facility] Pager [phone] I spent 42 minutes in coordination of care and [id number] with the patient and/or their s urrogate in which the following was discussed: results of nuc med and PET scan studies indic ating no viable myocardium and thus will plan for complex PCI tomorrow Associated attestation - Khurram Bedoya MD - 10/14/2017 9:29 PM PSTCardiology Attendi I have seen and examined Mr. Mckeon and discussed the patient's management with the [facility] practitioner. I reviewed the practitioner's note above and agree with the documented f indings and plan of care. KHURRAM BEDOYA MD Director of the [facility] Hypertrophic Cardiomyopathy Record Clerk of Echocardiography Paper Cutter Operatorfront line supervisor Division of Cardiovascular Medicine Ashleigh Alvarez ACNP - 10/13/2017 8:33 AM PSTFormatting of this note may be differ ent from the original. Cardiology Inpatient Progress Note Date: 10/13/2017 Hospital Day: 3 Primary Care Physician: Chato Matson MD Outpatient Manager Professional Development: Dr Jamal Guerrero MD Attending Manager Professional Development: Khurram Bedoya MD Provider: Ashleigh Alvarez [facility] ID: Ron Mckeon is a 61 year old male with past medical history of CAD s/p anterior [facility] 03/2017 with cardiogenic shock s/p PCI with ANY to LM/LAD and LCx with ECMO support, syst olic heart failure (EF 20-25%), ischemic cardiomyopathy, hypertension, Atrial flutter, prior tobacco use, recent JAVON thrombus on anticoagulation, Influenza A with septic shock (10/03) r equiring intubation and mechanical ventilation, HAP on treatment who was admitted in transfe r from [place] on 10/11 for consideration of PCI vs CABG in setting of NSTEMI with in sten t retenosis of both LM into LAD and LCx stents. Interval Events: --completed cefdinir for treatment of pneumonia (x 10 days) --attempted cMRI however aborted due to EGD clips noted --heparin gtt stopped --continued tirofiban infusion --planning for resting nuclear, FDG PET today Subjective: Pt denies chest pain or dyspnea overnight, no orthopnea. His cough has resolved completely. No fever or chills. Looking forward to getting his tests done today. Current Inpatient Medications: acetaminophen (TYLENOL) tablet 650 mg, 650 mg, oral, Q4H PRN amiodarone (CORDARONE) tablet 200 mg, 200 mg, oral, DAILY artificial tears (dextran 70-hypromellose) (NATURE'S TEARS) 0.1-0.3 % ophthalmic drops 1 dr op, 1 drop, Both Eyes, PRN aspirin chewable tablet 81 mg, 81 mg, oral, DAILY atorvastatin (LIPITOR) tablet 40 mg, 40 mg, oral, DAILY bisacodyl (DULCOLAX) suppository 10 mg, 10 mg, rectal, DAILY PRN carvedilol (COREG) tablet 6.25 mg, 6.25 mg, oral, BID W/MEALS cholecalciferol (Vitamin D3) (VITAMIN D-3) tablet 1,000 Units, 1,000 Units, oral, DAILY gabapentin (NEURONTIN) capsule 300 mg, 300 mg, oral, TID magnesium citrate liquid 296 mL, 296 mL, oral, DAILY PRN melatonin tablet 3 mg, 3 mg, oral, QPM oxyCODONE (immediate release) (ROXICODONE) tablet 5-10 mg, 5-10 mg, oral, Q6H PRN pantoprazole (PROTONIX) tablet 40 mg, 40 mg, oral, BID polyethylene glycol (MIRALAX) packet 17 g, 17 g, oral, BID polyethylene glycol (MIRALAX) packet 34 g, 34 g, oral, TID PRN senna-docusate (SENOKOT S) 8.6-50 mg 4 tablet, 4 tablet, oral, BID tirofiban (AGGRASTAT) 12.5 mg/250 mL (0.05 mg/mL) IV infusion, 0.15 mcg/kg/min, intravenous , CONTINUOUS Physical Exam: Last Vitals: BP 132/72 | Pulse 91 | Temp 36.4 C (97.5 F) | RR 16 | Ht 1.753 m (5' 9") | Wt 88.7 kg (195 lb 8.8 oz) | SpO2 99% | BMI 28.88 kg/(m^2) 24 Hour Vital Min/Max: Systolic (24hrs), Av , Min:99 , Max:132 Diastolic (24hrs), Av, Min:60, Max:72 Pulse Min: 82 Max: 91 Temp Min: 36.4 C (97.5 F) Max: 36.7 C (98.1 F) Resp Min: 16 Max: 18 SpO2 Min: 91 % Max: 99 % Intake/Output Summary (Last 24 hours) at 10/13/17 1432 Last data filed at 10/13/17 0752 Gross per 24 hour Intake 1325 ml Output 2000 ml Net -675 ml General: well appearing adult male in no acute distress, appropriately interactive/cooperat marilu HEENT: atraumatic, normocephalic, PERRLA, sclera anicteric, MM moist, oral pharynx clear Respiratory: Diminished bilateral LL, No wheezing, crackles or rhonchi Cardiovascular: RRR. S1, S2 normal distant. No murmurs, rubs, gallops, PMI non-displaced, J VD not elevated above clavicle upright, no carotid bruits. Peripheral vascular: +2 radial bi laterally, +2 posterior tibialis bilaterally Gastrointestinal: BS normoactive, soft, non-tender, no bruits, no hepatomegaly Skin: Warm, dry, LE no edema bilaterally Neuro: No gross focal deficits; awake, alert, oriented x 3 Diagnostic Data: Laboratory Data: Chemistries: Last 72 Hours (or 3 results): Recent Labs 03/24/17 0012 03/25/17 0052 03/31/1734404/01/17 0343 04/02/17 0504 10/11/17 0631 10/12/17 0701 10/13/17 0405 10/13/17 0635 10/13/17 1241 NA 133* -- 134* < > 131* -- 130* -- 130* -- 141 -- 141 -- 140 -- -- K 4.0 < > 4.3 < > 4.9 -- 4.8 -- 5.0 -- 3.6 -- 3.8 -- 4.1 -- -- CL 97 -- 100 < > 106 -- 102 -- 103 -- 107 -- 107 -- 109* -- -- BICARB 27 -- 27 < > 15* -- 19* -- 19* -- 25 -- 24 -- 24 -- -- BUN 47* -- 47* < > 42* -- 49* -- 43* -- 20 -- 21* -- 20 -- -- CR 1.52* -- 1.48* < > 1.24 -- 1.48* -- 1.29 -- 1.05 -- 1.31* -- 1.25 -- -- GLU 164* < > 128* < > 107* < > 107* < > 99 < > 104* < > 108* < > 114* 124* 103* CA 8.1* -- 8.3* < > 8.6 -- 8.5* -- 9.0 -- 8.2* -- 8.2* -- 8.3* -- -- MG 2.8* -- 3.3* < > 2.4 -- 2.2 -- 2.2 -- -- -- -- -- -- -- -- PO4 4.6 -- 4.8* -- -- -- -- -- -- -- 3.8 -- -- -- -- -- -- < > = values in this interval not displayed. Recent Labs 03/31/1734404/01/17 0343 04/02/17 0504 10/11/17 1243 10/12/17 0701 10/13/17 0405 WBC 8.85 9.82 8.55 < > 7.76 6.50 7.35 HB 9.5* 9.3* 10.2* < > 12.5* 11.3* 11.0* HCT 28.8* 27.7* 30.8* < > 36.6* 33.7* 32.8* PLT 408* 435* 402* < > 231 198 209 NEUTROPERC 73.6* 72.3* 80.4* -- -- -- -- LYMPHPERC 16.2* 17.1* 12.5* -- -- -- -- MONOPERC 8.1 8.6 6.2 -- -- -- -- BASOPERC 0.2 0.1 0.0 -- -- -- -- EOSPERC 0.5* 0.8* 0.9* -- -- -- -- < > = values in this interval not displayed. Recent Labs 03/15/17 1539 03/16/17 0030 03/25/17 0052 03/26/17 0337 10/11/17 0631 AST 662* 471* -- -- 66* -- ALT 126* 116* -- -- 103* -- TBILI 0.3 0.4 -- -- 0.7 -- AP 67 61 -- -- 101 -- ALB 2.4* 2.4* < > 2.2* 2.2* 2.8* TP 5.0* 5.3* -- -- 7.1 -- < > = values in this interval not displayed. Lab Results Component Value Date CHOL 89 10/10/2017 LDL 42 10/10/2017 HDL 21 10/10/2017 TRI 131 10/10/2017 Lab Results Component Value Date INRPT 1.08 10/10/2017 Lab Results Component Value Date TROPONIN 0.95 03/30/2017 TROPONIN 1.30 03/30/2017 TROPONIN 1.08 03/30/2017 TROPONIN 0.89 03/30/2017 TROPONIN 0.41 03/29/2017 No results found for: NTPROBNP No results found for: FREET4, TSH, TPOAB, THYROGLOB, THYROGLOBAB, D3CCMZA Lab Results Component Value Date A1C 5.9 10/11/2017 A1C 5.6 03/26/2017 Tele SR 80-100s, NSVT x 3 beats EKG 10/10/17 SR LBBB, 70 bpm poor R wave progression TTE 10/11/17 Final Impressions: 1. The left ventricular cavity size is normal. 2. The LV function is severely abnormal. 3. Left ventricular systolic thickening is segmentally abnormal (see comments below). 4. Visually estimated left ventricular ejection fraction is 30 - 35%. 5. RV cavity size is normal. RV global systolic function is mildly reduced. 6. There is mild dilatation of the ascending aorta. (See comments below). 7. Compared to the most recent exam dated, 03/30/2017, the LVEF is similar. [facility] CXR 10/11/17: FINDINGS: The increased lung volumes. Patchy groundglass opacities are observed in the left lateral l ana maría base with silhouetting of the diaphragm. There may be a small left pleural effusion. No right pleural effusion no obvious pneumothorax is seen. The remaining lung zones are clear. The cardiac and mediastinal borders are normal. IMPRESSION: Patchy groundglass opacities in the left lower lobe may represent developing pneumonia in t he appropriate clinical setting. CXR 10/03/17: Mixed interstitial and alveolar opacities predominantly at the mid to lower lungs, may reflect pulmonary edema versus atypical infectious process. CXR 10/05/17: 1.NEW PATCHY RETICULAR OPACITY INVOLVING PORTIONS OF BOTH LUNGSFOLLOWINGEXTUBATIO N.THIS COULD REFLECT PULMONARY EDEMA OR MASSIVEASPIRATION. CXR 10/06/17: Interval decrease in interstitial and airspace opacities bilaterally. CXR 10/07/17: Progressive interstitial and airspace opacities.These could be due to cardiogenic or noncardiogenic pulmonary edema.These could be due to atypical pneumonia.The findings could be related to a combined pathology. EGD 10/05/17: Indication: Suspected UGIB - Normal upper third of esophagus, middle third of esophagus and lower third of esophagus. - Acute gastritis. - Non-bleeding gastric ulcers with pigmented material. Clips were placed. - Friable duodenal mucosa. - Normal first portion of the duodenum, second portion of the duodenum, area of the papilla and third portion of the duodenum. - No specimens collected. [facility] and selective coronary angiography 10/04/17 summary (full report in CareEverywhere): 1.Systemic hypotension, upper normal left ventricular end-diastolic pressure 2.Severe in-stent stenosis of left main to ostial LAD stent 3.Severe in-stent stenosis ostial proximal left circumflex stent 4.Mild to moderate RCA disease 5.ANNA grade 1 flow to distal LAD 10/03/17 Echo at [place]: The number of aortic valve leaflets cannot be identified. The left atrium is mildly dilated. Normal left ventricular cavity size. Mild concentric left ventricular hypertrophy. Ejection fraction is visually estimated at 40%. Thinning and severe hypokinesis distal anterior, anterior septal, and apicalsegments Aortic root dimension within normal limits. Mild mitral regurgitation present. No evidence of any pericardial effusion. The pulmonic valve was not well visualized. Normal right atrial size. Normal right ventricular size and function. Structurally normal tricuspid valve without significant stenosis orregurgitation. Insufficient amount of tricuspid regurgitation for estimation of pulmonary arterypressure s. When compared with images of previous echo 06/04/17, no significant changes. TTE 05/07/18: Echocardiogram 05/07/17 shows, Mild left atrial dilatation, Normal left ventricular size. Th ere is a segmental wall motion abnormality with thinning and severe hypokinesis of the entir e anterior and anteroseptal region. Overall, left ventricular systolic function is moderatel y decreased. LVEF is 35-40%, Grade 1 left ventricular diastolic dysfunction,Mild mitral valv e agitation, Normal right-sided pressure, Normal IVC with normal respiratory collapse. Assessment & Plan: # CAD with in stent resteonsis of LM/LAD and LCx stents # NSTEMI Pt was admitted to [place] 10/03 with hypoxemic respiratory failure, severe sepsis and s hock thought to be due to influenza type A as below. Noted to have new LBBB, NSTEMI with pea k trop 26. Underwent coronary angiogram at [place] 10/04 which revealed in stent re-steno sis of both LM into LAD and LCx stents, mild disease of RCA. Transferred to [facility] for further evaluation. TTE showed LV function 30-35%, mildly reduced RV function. Pt was evaluated by CTS. Initially planned for cardiac MRI to determine viability and thus revascularization str ategy however given recent EGD clipping MRI was aborted. Planning for RESTING nuclear scan t edenilson and FDG PET scan following. Currently pt remains pain free. Cath images in syngo. Pt la st dose of clopidogrel 10/10/17. Holding further doses until revascularization strategy known. If scans show no viability then will plan for PCI (likely with Dr Modi with Marcel a support) which would require repeat bolus of clopidogrel. Awaiting results of scans today. --ASA 81 mg daily --atorvastatin 40 mg daily (lower dose in setting of concurrent amiodarone) --carvedilol 3.125 mg BID--> increase to 6.25 mg BID given NSVT --heparin infusion stopped 10/12 to decrease risk of GIB --continue tirofiban infusion given recent ANY (03/2017) - holding plavix as above for now --CT surgery consulted --REST nuclear this am, FDG PET today to determine viability as above # Chronic biventricular systolic heart failure with reduced systolic function (EF 30-35%) # Ischemic cardiomyopathy NYHA class II-III, Stage C. Etiology ischemic. TTE at [facility] showed EF 30-35%, mildly reduced RV function, mild dilation of ascending aorta. LVEDP 14 mm hg during catheterization 10/04 ( in setting of hypotension). Pt was diuresed at [place], appears euvolemic on exam. Pt wa s discharged 03/2017 with Life vest however EF improved > 35% and therefore no class I indica tion at this time. Given EF remains low (however in setting of another ischemic event), LBBB , heart failure, NSVT will consult EP to determine if ICD should be placed on this admission following revascularization. --preload: holding diuresis --afterload: holding lisinopril (AYLIN, possibly upcoming CTS, should be initiated prior to DC) --contractility: carvedilol as above --aldosterone antagonist: pt unable to tolerate spironolactone due to hyperkalemia in the past --ICD: pt as above previously on life vest, stopped 05/2017 due to EF improvement. EP consulted today re: need for ICD # Paroxysmal Aflutter Noted Aflutter with RVR at admission in [place], treated with amiodarone infusion, main taining SR at this time. CHADS-VASC 3, HAS-BLED 3, pt was on heparin infusion however holdin g now (to prevent GIB in setting of cMRI and recent duodenal clips). --rate control: carvedilol as above --rhythm control: continue amiodarone 200 mg daily for now --anticoagulation: holding heparin given above, no bridge given risk of bleeding # Influenza type A # Community acquired pneumonia # Severe sepsis with shock, resolved Pt admitted with acute dyspnea, respiratory failure to [facility] 10/03 found to be Flu A p ositive. Pt was intubated, started on oseltamivir and azithromycin, ceftriaxone. He complete d 6 days of oseltamivir and 10 days of antibiotics as of 10/12. Cough has resolved. CXR 10/11 sh owed continued GGO of LLL, pt afebrile, no leukocytosis. Discussed precautions with infectio n control on 10/12 - by protocol OK to de-isolate given greater than 7 days since onset of sym ptoms AND resolution of symptoms. --de-isolate --complete cefdinir treatment on 10/12 # UGIB s/p 2 clips Pt developed hgb drop from 16 to 12 in setting of sepsis management , fluid resuscitation. EGD at [facility] on 10/05 showed gastritis, duodenitis, linear ulcerations without active b leeding s/p clipping x 2. He has thus far tolerated DAPT and heparin infusion. Underwent att empted CMRI 10/12 given possibility of clip displacement stopped heparin infusion. No signs of acute bleeding. Stable H/H. Notified patient and RN to watch for signs of GIB (melena). --continue protonix 40 mg BID --follow up with GI as outpatient --CBC daily, if symptoms or signs of bleeding check more frequently # Pre diabetes A1c 5.6 on this admission. On metformin 500 mg BID at home. Holding during this admission. CBG 100-120s last 24 hours. --no SSI after MN for PET scan today --resume if CBGs elevated >180 # LA appendage thrombus, resolved S/p treatment with warfarin (02/2017) repeat TTE 04/2017 showed resolution. Therefore anticoa gulation was stopped. FEN/GI: heart healthy, NPO for PET scan today Prophylaxis: holding heparin as above, ambulatory Glucose: see above Contact Precautions: standard Lines/catheters: PIV Problem list updated: yes Disposition: > 24 hours Follow up: Will need PCP, Cardiology CODE: FC/FT This patient was interviewed and examined by attending laboratory engineer, Dr. Khurram Bedoya MD , who is in agreement with above described findings, assessment and plan. KULWINDER Grace Instructor of Medicine [facility] Cardiovascular [place] Pager [phone] I spent 33 minutes in coordination of care and [id number] with the patient and/or their s urrogate in which management of CAD, imaging plan and consultation with radiology, revascula rization treatment was discussed Associated attestation - Khurram Bedoya MD - 10/13/2017 2:48 PM PSTCardiology Attendi ng I have seen and examined Mr. Mckeon and discussed the patient's management with the [facility] practitioner. I reviewed the practitioner's note above and agree with the documented f indings and plan of care. KHURRAM BEDOYA MD Director of the [facility] Hypertrophic Cardiomyopathy Record Clerk of Echocardiography Paper Cutter Operatorfront line supervisor Division of Cardiovascular Medicine Ashleigh Alvarez ACNP - 10/12/2017 8:02 AM PSTFormatting of this note may be differ ent from the original. Cardiology Inpatient Progress Note Date: 10/12/2017 Hospital Day: 2 Primary Care Physician: Chato Matson MD Outpatient Manager Professional Development: Dr Jamal Guerrero MD Attending Manager Professional Development: Khurram Bedoya MD Provider: KULWINDER Grace ID: Ron Mckeon is a 61 year old male with past medical history of CAD s/p anterior [facility] 03/2017 with cardiogenic shock s/p PCI with ANY to LM/LAD and LCx with ECMO support, syst olic heart failure (EF 20-25%), ischemic cardiomyopathy, hypertension, Atrial flutter, prior tobacco use, recent JAVON thrombus on anticoagulation, Influenza A with septic shock (10/03) r equiring intubation and mechanical ventilation, HAP on treatment who was admitted in transfe r from [place] on 10/11 for consideration of PCI vs CABG in setting of NSTEMI with in sten t retenosis of both LM into LAD and LCx stents. Interval Events: --continued cefdinir for treatment of pneumonia (day 06/16) --planned for Cardiac MRI to assess for viability this evening --following H/H due to hgb drop due to recent UGIB s/p 2 clips 10/05 --continued heparin and tirofiban infusions Subjective: Pt reports his cough is now gone. He denies dyspnea or chest pain. His strength and energy is coming back. Walking with FWW. Current Inpatient Medications: acetaminophen (TYLENOL) tablet 650 mg, 650 mg, oral, Q4H PRN amiodarone (CORDARONE) tablet 200 mg, 200 mg, oral, DAILY artificial tears (dextran 70-hypromellose) (NATURE'S TEARS) 0.1-0.3 % ophthalmic drops 1 dr op, 1 drop, Both Eyes, PRN aspirin chewable tablet 81 mg, 81 mg, oral, DAILY atorvastatin (LIPITOR) tablet 40 mg, 40 mg, oral, DAILY bisacodyl (DULCOLAX) suppository 10 mg, 10 mg, rectal, DAILY PRN carvedilol (COREG) tablet 3.125 mg, 3.125 mg, oral, BID W/MEALS cefDINir (OMINCEF) capsule 300 mg, 300 mg, oral, BID cholecalciferol (Vitamin D3) (VITAMIN D-3) tablet 1,000 Units, 1,000 Units, oral, DAILY gabapentin (NEURONTIN) capsule 300 mg, 300 mg, oral, TID magnesium citrate liquid 296 mL, 296 mL, oral, DAILY PRN melatonin tablet 3 mg, 3 mg, oral, QPM oxyCODONE (immediate release) (ROXICODONE) tablet 5-10 mg, 5-10 mg, oral, Q6H PRN pantoprazole (PROTONIX) tablet 40 mg, 40 mg, oral, BID polyethylene glycol (MIRALAX) packet 17 g, 17 g, oral, BID polyethylene glycol (MIRALAX) packet 34 g, 34 g, oral, TID PRN potassium chloride SR (K-DUR) tablet 20 mEq, 20 mEq, oral, ONCE senna-docusate (SENOKOT S) 8.6-50 mg 4 tablet, 4 tablet, oral, BID tirofiban (AGGRASTAT) 12.5 mg/250 mL (0.05 mg/mL) IV infusion, 0.15 mcg/kg/min, intravenous , CONTINUOUS Physical Exam: Last Vitals: BP 123/70 | Pulse 87 | Temp 36.7 C (98.1 F) | RR 16 | Ht 1.753 m (5' 9") | Wt 89.1 kg (196 lb 6.4 oz) | SpO2 99% | BMI 29 kg/(m^2) 24 Hour Vital Min/Max: Systolic (24hrs), Av , Min:101 , Max:123 Diastolic (24hrs), Av, Min:57, Max:70 Pulse Min: 81 Max: 89 Temp Min: 36.7 C (98.1 F) Max: 36.9 C (98.4 F) Resp Min: 16 Max: 16 SpO2 Min: 90 % Max: 99 % Intake/Output Summary (Last 24 hours) at 10/12/17 1416 Last data filed at 10/12/17 1013 Gross per 24 hour Intake 1577.31 ml Output 1275 ml Net 302.31 ml General: well appearing adult male in no acute distress, appropriately interactive/cooperat marilu HEENT: atraumatic, normocephalic, PERRLA, sclera anicteric, MM moist, oral pharynx clear Respiratory: Diminished LLL No wheezing, crackles or rhonchi Cardiovascular: RRR. S1, S2 normal distant. No murmurs, rubs, gallops, PMI non-displaced, J VD not elevated above clavicle, no carotid bruits. Peripheral vascular: +2 radial bilaterall y, +2 posterior tibialis bilaterally Gastrointestinal: BS normoactive, soft, non-tender, no bruits, no hepatomegaly Skin: Warm, dry, LE no edema bilaterally Neuro: No gross focal deficits; awake, alert, oriented x 3 Diagnostic Data: Laboratory Data: Chemistries: Last 72 Hours (or 3 results): Recent Labs 03/24/17 0012 03/25/17 0052 03/31/17 0345 04/01/17 0343 04/02/17 0504 10/11/17 0631 10/11/17 2320 10/12/17 0701 10/12/17 1043 NA 133* -- 134* < > 131* -- 130* -- 130* -- 141 -- -- 141 -- K 4.0 < > 4.3 < > 4.9 -- 4.8 -- 5.0 -- 3.6 -- -- 3.8 -- CL 97 -- 100 < > 106 -- 102 -- 103 -- 107 -- -- 107 -- BICARB 27 -- 27 < > 15* -- 19* -- 19* -- 25 -- -- 24 -- BUN 47* -- 47* < > 42* -- 49* -- 43* -- 20 -- -- 21* -- CR 1.52* -- 1.48* < > 1.24 -- 1.48* -- 1.29 -- 1.05 -- -- 1.31* -- GLU 164* < > 128* < > 107* < > 107* < > 99 < > 104* < > 178* 108* 118* CA 8.1* -- 8.3* < > 8.6 -- 8.5* -- 9.0 -- 8.2* -- -- 8.2* -- MG 2.8* -- 3.3* < > 2.4 -- 2.2 -- 2.2 -- -- -- -- -- -- PO4 4.6 -- 4.8* -- -- -- -- -- -- -- 3.8 -- -- -- -- < > = values in this interval not displayed. Recent Labs 03/31/17 0345 04/01/17 0343 04/02/17 0504 10/11/17 0631 10/11/17 1243 10/12/17 0701 WBC 8.85 9.82 8.55 < > 6.72 7.76 6.50 HB 9.5* 9.3* 10.2* < > 11.6* 12.5* 11.3* HCT 28.8* 27.7* 30.8* < > 34.2* 36.6* 33.7* PLT 408* 435* 402* < > 164 231 198 NEUTROPERC 73.6* 72.3* 80.4* -- -- -- -- LYMPHPERC 16.2* 17.1* 12.5* -- -- -- -- MONOPERC 8.1 8.6 6.2 -- -- -- -- BASOPERC 0.2 0.1 0.0 -- -- -- -- EOSPERC 0.5* 0.8* 0.9* -- -- -- -- < > = values in this interval not displayed. Recent Labs 03/15/17 1539 03/16/17 0030 03/25/17 0052 03/26/17 0337 10/11/17 0631 AST 662* 471* -- -- 66* -- ALT 126* 116* -- -- 103* -- TBILI 0.3 0.4 -- -- 0.7 -- AP 67 61 -- -- 101 -- ALB 2.4* 2.4* < > 2.2* 2.2* 2.8* TP 5.0* 5.3* -- -- 7.1 -- < > = values in this interval not displayed. Lab Results Component Value Date CHOL 89 10/10/2017 LDL 42 10/10/2017 HDL 21 10/10/2017 TRI 131 10/10/2017 Lab Results Component Value Date INRPT 1.08 10/10/2017 Lab Results Component Value Date TROPONIN 0.95 03/30/2017 TROPONIN 1.30 03/30/2017 TROPONIN 1.08 03/30/2017 TROPONIN 0.89 03/30/2017 TROPONIN 0.41 03/29/2017 No results found for: NTPROBNP No results found for: FREET4, TSH, TPOAB, THYROGLOB, THYROGLOBAB, [id number] Lab Results Component Value Date A1C 5.6 03/26/2017 Tele SR 80-100s EKG 10/10/17 SR LBBB, 70 bpm poor R wave progression TTE 10/11/17 Final Impressions: 1. The left ventricular cavity size is normal. 2. The LV function is severely abnormal. 3. Left ventricular systolic thickening is segmentally abnormal (see comments below). 4. Visually estimated left ventricular ejection fraction is 30 - 35%. 5. RV cavity size is normal. RV global systolic function is mildly reduced. 6. There is mild dilatation of the ascending aorta. (See comments below). 7. Compared to the most recent exam dated, 03/30/2017, the LVEF is similar. [facility] CXR 10/11/17: FINDINGS: The increased lung volumes. Patchy groundglass opacities are observed in the left lateral l ana maría base with silhouetting of the diaphragm. There may be a small left pleural effusion. No right pleural effusion no obvious pneumothorax is seen. The remaining lung zones are clear. The cardiac and mediastinal borders are normal. IMPRESSION: Patchy groundglass opacities in the left lower lobe may represent developing pneumonia in t he appropriate clinical setting. CXR 10/03/17: Mixed interstitial and alveolar opacities predominantly at the mid to lower lungs, may reflect pulmonary edema versus atypical infectious process. CXR 10/05/17: 1.NEW PATCHY RETICULAR OPACITY INVOLVING PORTIONS OF BOTH LUNGSFOLLOWINGEXTUBATIO N.THIS COULD REFLECT PULMONARY EDEMA OR MASSIVEASPIRATION. CXR 10/06/17: Interval decrease in interstitial and airspace opacities bilaterally. CXR 10/07/17: Progressive interstitial and airspace opacities.These could be due to cardiogenic or noncardiogenic pulmonary edema.These could be due to atypical pneumonia.The findings could be related to a combined pathology. EGD 10/05/17: Indication: Suspected UGIB - Normal upper third of esophagus, middle third of esophagus and lower third of esophagus. - Acute gastritis. - Non-bleeding gastric ulcers with pigmented material. Clips were placed. - Friable duodenal mucosa. - Normal first portion of the duodenum, second portion of the duodenum, area of the papilla and third portion of the duodenum. - No specimens collected. C and selective coronary angiography 10/04/17 summary (full report in [facility]): 1.Systemic hypotension, upper normal left ventricular end-diastolic pressure 2.Severe in-stent stenosis of left main to ostial LAD stent 3.Severe in-stent stenosis ostial proximal left circumflex stent 4.Mild to moderate RCA disease 5.ANNA grade 1 flow to distal LAD 10/03/17 Echo at [place]: The number of aortic valve leaflets cannot be identified. The left atrium is mildly dilated. Normal left ventricular cavity size. Mild concentric left ventricular hypertrophy. Ejection fraction is visually estimated at 40%. Thinning and severe hypokinesis distal anterior, anterior septal, and apicalsegments Aortic root dimension within normal limits. Mild mitral regurgitation present. No evidence of any pericardial effusion. The pulmonic valve was not well visualized. Normal right atrial size. Normal right ventricular size and function. Structurally normal tricuspid valve without significant stenosis orregurgitation. Insufficient amount of tricuspid regurgitation for estimation of pulmonary arterypressure s. When compared with images of previous echo 06/04/17, no significant changes. TTE 05/07/18: Echocardiogram 05/07/17 shows, Mild left atrial dilatation, Normal left ventricular size. Th ere is a segmental wall motion abnormality with thinning and severe hypokinesis of the entir e anterior and anteroseptal region. Overall, left ventricular systolic function is moderatel y decreased. LVEF is 35-40%, Grade 1 left ventricular diastolic dysfunction,Mild mitral valv e agitation, Normal right-sided pressure, Normal IVC with normal respiratory collapse. Assessment & Plan: # CAD with in stent resteonsis of LM/LAD and LCx stents # NSTEMI Pt was admitted to [facility] 10/03 with hypoxemic respiratory failure, severe sepsis and s hock thought to be due to influenza type A as below. Noted to have new LBBB, NSTEMI with pea k trop 26. Underwent coronary angiogram at [facility] 10/04 which revealed in stent re-steno sis of both LM into LAD and LCx stents, mild disease of RCA. Transferred to [facility] for further evaluation. TTE shows LV function 30-35%, mildly reduced RV function. Pt was evaluated by Nae NELSON. Initially planned for cardiac MRI to determine revascularization strategy however given recent EGD clipping not an option (did start initial scan then stopped). Discussed with Radi ology, planning for RESTING nuclear scan today and FDG PET scan tomorrow. Currently pt remai ns pain free. He was not aware of his NSTEMI (images of cath in syngo). Pt last dose of clop idogrel 10/10/17. Holding further doses until revascularization strategy known. --ASA 81 mg daily --atorvastatin 40 mg daily (lower dose in setting of concurrent amiodarone) --carvedilol 3.125 mg BID --heparin infusion stopped today due --continue tirofiban infusion given recent ANY (03/2017) - holding plavix as above --CT surgery consulted --planning for REST nuclear study today. FDG PET tomorrow # Chronic biventricular systolic heart failure with reduced systolic function (EF 30-35%) # Ischemic cardiomyopathy NYHA class II-III, Stage C. Etiology ischemic. TTE at [facility] showed EF 30-35%, mildly reduced RV function, mild dilation of ascending aorta. LVEDP 14 mm hg during catheterization 10/04 ( in setting of hypotension). He was diuresed at [facility], appears euvolemic on exam today. Pt was discharged with Life vest however EF improved > 35% and therefore no class I i ndication at this time. --preload: holding diuresis --afterload: holding lisinopril given possible upcoming cardiac surgery --contractility: carvedilol as above --aldosterone antagonist: pt unable to tolerate spironolactone due to hyperkalemia --ICD: pt as above previously on life vest, stopped 05/2017 due to EF improvement. # Paroxysmal aflutter Noted to developed Aflutter with RVR prior to admission in [place], treated with amioda rima infusion, maintaining SR at this time. CHADS-VASC 3, HAS-BLED 3, pt was on heparin infu neema however holding now (to prevent GIB in setting of cMRI and recent duodenal clips). --rate control: carvedilol as above --rhythm control: continue amiodarone 200 mg daily for now --anticoagulation: holding heparin given above, no bridge given risk of bleeding # Influenza type A # Community acquired pneumonia # Severe sepsis with shock, resolved Pt admitted with acute dyspnea, respiratory failure to [facility] 10/03 found to be Flu pos itive. Pt was intubated, started on oseltamivir and azithromycin, ceftriaxone. He completed 6 days of oseltamivir and now 10 days of antibiotics as of 10/12. Cough has resolved. CXR 10/11 showed continued GGO of LLL, pt afebrile, no leukocytosis. Will finish antibiotics today. Di scussed precautions with infection control - by protocol OK to de-isolate given greater than 7 days since onset of symptoms AND resolution of symptoms. --de-isolate --complete cefdinir treatment # UGIB s/p 2 clippings Pt developed hgb drop from 16 to 12 in setting of sepsis management , fluid resuscitation. EGD at [facility] on 10/05 showed gastritis, duodenitis, linear ulcerations without active b leeding s/p clipping x 2. He has thus far tolerated DAPT and heparin infusion. Underwent att empted CMRI today given possibility of clip displacement have stopped heparin infusion. --continue protonix 40 mg BID --follow up with GI as outpatient --CBC daily, if symptoms or signs of bleeding check more frequently # Pre diabetes A1c 5.6 on this admission. On metformin 500 mg BID at home. Holding during this admission. CBG 108-118 last 24 hours. --stop SSI after MN for PET scan in am --resume if CBGs elevated >180 # LA appendage thrombus, resolved S/p treatment with warfarin (02/2017) repeat TTE 04/2017 showed resolution. Therefore anticoa gulation was stopped. FEN/GI: heart healthy, NPO after MN for PET in am Prophylaxis: holding heparin as above, ambulatory Glucose: see above Contact Precautions: standard Lines/catheters: PIV Problem list updated: yes Disposition: > 24 hours Follow up: Will need PCP, Cardiology CODE: FC/FT This patient was interviewed and examined by attending laboratory engineer, Dr. Khurram Bedoya MD , who is in agreement with above described findings, assessment and plan. Ashleigh Alvarez, [facility] Instructor of Medicine [facility] Cardi[facility] [place] Pager [phone] I spent 51 minutes in coordination of care and [id number] with the patient and/or their s urrogate in which management of CAD, imaging plan and consultation with radiology, pneumonia treatment was discussed Associated attestation - Khurram Bedoya MD - 10/12/2017 3:00 PM PSTCardiology Attendi I have seen and examined Mr. Mckeon and discussed the patient's management with the essentia healthed practitioner. I reviewed the practitioner's note above and agree with the documented f indings and plan of care. KHURRAM BEDOYA MD Director of the [facility] Hypertrophic Cardiomyopathy Record Clerk of Echocardiography Paper Cutter Operatorfront line supervisor Division of Cardiovascular Medicine Lopez Suttonsebastiengeno - 10/11/2017 12:15 PM PSTTransthoracic echocardiogram completed. Final report to follow. in this encounter Plan of Treatment + +--------+ + + | Name | Priori | Associated Diagnoses | Order Schedule | | | ty | | | + +--------+ + + | FIRE FIGHTERS DISPATCHER INT CORONARY ANGIOGRAM | Routin | | Tomorrow for 1 | | | e | | Occurrences starting | | | | | 10/15/2017 until | | | | | 10/15/2017 | + +--------+ + + | FIRE FIGHTERS DISPATCHER EP ICD | Routin | | One Time for 1 | | | e | | Occurrences starting | | | | | 10/16/2017 until | | | | | 10/16/2017 | + +--------+ + + as of this encounter Results CAPILLARY BLOOD GLUCOSE (NO CHG), POC (10/17/2017 1:18 PM) + +---------+ + | Component | Value | Ref Range | + +---------+ + | BLOOD GLUCOSE, POC | 113 (H) | 70 - 99 mg/dL | + +---------+ + + + + | Specimen | Performing Laboratory | + + + | | [facility] POINT OF CARE TESTS [address] | | | [place] [address] | + + + CAPILLARY BLOOD GLUCOSE (NO CHG), POC (10/17/2017 7:38 AM) + +---------+ + | Component | Value | Ref Range | + +---------+ + | BLOOD GLUCOSE, POC | 119 (H) | 70 - 99 mg/dL | + +---------+ + + + + | Specimen | Performing Laboratory | + + + | | [facility], POINT OF CARE TESTS [address] | | | [place] [address] | + + + X-RAY CHEST 2 VIEW (10/17/2017 7:04 AM) + + + | Specimen | Performing Laboratory | + + + | | [facility] RADIOLOGY VOICE RECOGNITION | + + + [...] Service Account, Radiant Res In Interface - 10/17/2017 7:51 AM PST [...] + + CBC (HEMOGRAM) ONLY (10/17/2017 4:11 AM) + + + + | Component [...] | + + + | Blood | [facility] LABORATORY SERVICES, CORE [address] | | | [place] [address] | + + + BASIC METABOLIC SET (NA, K, CL, TCO2, BUN, CR, GLU, CA) (10/17/2017 4:11 AM) + + + + | Component [...] | >60 | >60 mL/min | | GRENADIAN | | | + + + + | EGFR NON | 51 (L) | >60 mL/min | | -GRENADIAN | | | + + + + [...] | + + + | Blood | [facility] LABORATORY [facility], CORE [address] | | | [place] [address] | + + + + + | Narrative | + + | Adult glucose reference range change effective 7--17. GFR is estimated using the | | [...] | + + CBC ONLY (10/17/2017 4:11 AM) + + + | Specimen | Performing Laboratory | + + + | Blood | | + + + + + | Narrative | + + | The following orders were created for panel order CBC ONLY. | | Procedure | | Abnormality Status | | --------- | | ------ CBC (HEMOGRAM) | | ONLY[[id number]] Abnormal Final | | result Please view results for these tests on the | | individual orders. | + + CARDIOLOGY (10/17/2017)CARDIOLOGY (10/17/2017)X-RAY PORTABLE CHEST 1 VIEW (10/16/2017 6:20 PM) + + + | Specimen | Performing Laboratory | + + + | | [facility] RADIOLOGY VOICE RECOGNITION | + + + + + | Narrative | + + | STUDY: NJ CHEST 1 VIEW HISTORY: Evaluated lead placement. COMPARISON: | | STUDY: NJ CHEST 1 VIEW FINDINGS: A new left [...] Service Account, Radiant Res In Interface - 10/17/2017 7:51 AM PST STUDY: NJ CHEST 1 | | VIEWHISTORY: Evaluated lead placement.COMPARISON: STUDY: NJ CHEST 1 VIEWFINDINGS: A | | new [...] | + + PROCEDURE NOTE (10/16/2017 5:30 PM) + + | Narrative | + + [...] procedure. | | He is candidate for INLAYER-D since he as class 2 baseline heart failure and currently | | class 3 heart failure with LBBB 152 msec. PROCEDURE ATTENDING: Sophie Darby, | | FELLOW: Amarilis Castle MD PROCEDURAL | | DATA: Procedure: New implant Implanted generator multiple drill operator: [employer]tronic | | Implanted leads multiple drill operator: [employer]onic Radha-procedure Anticoag: None Presenting | [...] DEVICE INFORMATION: | | BiV-ICD pulse generator: Title Inspector: Medtronic Model number: [id number] | | Serial number: [id number] RA lead: Title Inspector: Med[employer]onic Model number: | | 5076-52 Serial number: [id number] RV lead: Title Inspector: [employer]tronic | | Model number: [id number] Serial number: [id number] CS lead: | | Title Inspector: [employer]onic Model number: [id number] Serial number: [id number] | | MEASURED PARAMETERS: RA lead: P [...] | | Fellow Division of Cardiovascular Medicine [facility] | | Pager [phone] Pursuant to Federal Medicare requirements, I certify that I, Sophie | | Wilner BREWER, was present for the entire procedure, performed all critical elements, and | | participated directly in the generation of this report. Sophie Darby MD | | Cardiovascular Medicine - Electrophysiology [facility] Cardiovascular [place] at [facility] | | | + + PROCEDURE NOTE (10/16/2017 5:27 PM) + + | Narrative | + + | Sophie Darby MD 10/27/2017 11:06 AM PATIENT NAME: Ron Chaudhary | | Mike DATE OF PROCEDURE: 10/16/2017 DATE OF | | : 1955 REFERRING PHYSICIAN: Khurram Bedoya MD PRIMARY CARE | | PHYSICIAN: Chato Matson MD PROCEDURES PERFORMED: 1) Electrophysiology | | study 2) Ventricular tachycardia induction PRE PROCEDURE DIAGNOSIS: Ischemic | | cardiomyopathy POST PROCEDURE DIAGNOSIS: Same INDICATION: Ron Mckeon | | is a 61 y.o. Male recent NSTEMI, non-sustained VT (PVC triplet) and reduced EF<35% who | | presents to the Electrophysiology Laboratory for an Electrophysiology study for | | sudden cardiac arrest risk stratification using ventricular programmed electrical | | stimulation protocol. PROCEDURE ATTENDING: Sophie Darby MD | | FELLOW: Amarilis Castle MD MEDICATIONS: See anesthesia log and dairy laboratory technician | | log FLUIDS: In: 300 ml/ Out: 0 Fluoroscopy Time: 5.2 minutes Fluoroscopy | | DAP: 67.0 cGy cm2 ESTIMATED BLOOD LOSS: 10 ml PROCEDURE NARRATIVE: | | Following oral and written informed consent from the patient, the patient was brought | | to the Electrophysiology Laboratory in the post-absorptive, non-sedated state. A team | | pause was performed. The patient was prepped and draped in the usual sterile | | fashion. A finger oximeter and automatic blood pressure cuff were placed for | | continuous monitoring. Sedation was achieved per anesthesia team. 1% lidocaine | | was used for local anesthesia. Using the modified Seldinger technique, 2 sheaths, 7 | | Fr, were inserted into the right femoral vein. Under fluoroscopic guidance, a | | deflectable quadripolar catheter was positioned in the right ventricular (RV) apex, | | and a deflectable decapolar catheter was placed in coronary sinus (CS). Using these | | catheters, RV and CS recordings were obtained, and ventricular pacing was | | performed. The patient's baseline rhythm was sinus. Ventricular stimulation | | protocol was performed to try to induce ventricular tachycardia. Ventricular pacing | | was performed from the right ventricular apex. Two drive cycle lengths, 550 ms and | | 400 ms, were used. Up to 3 ventricular extrastimuli were delivered. The | | coupling interval of the extrastimuli was progressively tightened until VT was induced | | at 400/250/270 msec with VT cycle length of 324 msec. VT was induced at least twice | | and lasted >30 seconds on second episode, for which he was paced out of it. Patient | | was hemodynamically stable. The patient tolerated the procedure well. | | MEASURED VALUES: Pre-Ablation EPS findings/measurements: Rhythm: SINUS Ventricular | | cycle length (ms): 780 AH interval (ms): 82 HV interval (ms): 75 NJ interval (ms): | | 180 QRS duration (ms): 130 QT interval (ms): 420 Ventricular pre-excitation (y/n) :No | | Legend: FP=Fast Pathway, SP=Slow Pathway, AVN=AV Node, WCL= Wenckebach cycle | | length; ERP effective refractory period Ventricular Pacing | | Site: RV apex VA conduction present: yes VAWCL: <400ms VERP (drive CL / | | ERP): 400/240ms Rhythm(s) induced: 1) VT, CL 324 ms, induced | | 400/250/270 DISPOSITION: All catheters and sheaths were pulled. Hemostasis was | | achieved by Z stitches. The patient was brought back to the Procedural Care Unit | | in good condition. COMPLICATION: None IMPRESSION: Positive EP study for | | inducible ventricular tachycardia RECOMMENDATIONS: Proceed with biventricular ICD | | implantation today Amarilis Castle MD Electrophysiology Fellow Division of | | Cardiovascular Medicine [facility] Pager [phone] Pursuant | | to Federal Medicare requirements, I certify that I, Sophie Darby MD, was present for | | the entire procedure, performed all critical elements, and participated directly in | | the generation of this report. Sophie Darby MD Cardiovascular Medicine - | | Electrophysiology [facility] Cardiovascular [place] at [facility] | + + VBG-FULL ABL, POC (10/16/2017 [...] [facility], POINT OF CARE TESTS [address] | | | [place] [address] | + + + INTRAPROCEDURE IMAGING (10/16/2017 10:53 AM) + + | Narrative | + + | See admission or procedure notes for details of any intraprocedure images obtained. | + + CAPILLARY BLOOD GLUCOSE (NO CHG), POC (10/16/2017 8:56 AM) + +---------+ + | Component | Value | Ref Range | + +---------+ + | BLOOD GLUCOSE, POC | 119 (H) | 70 - 99 mg/dL | + +---------+ + + + + | Specimen | Performing Laboratory | + + + | | [facility] POINT OF CARE TESTS [address] | | | [place] [address] | + + + CBC (HEMOGRAM) ONLY (10/16/2017 4:14 AM) + + + + | Component | Value | Ref Range | + + + + | WHITE CELL COUNT | 7.46 | 3.50 - 10.80 K/cu mm | + + + + | RED CELL COUNT | 3.82 (L) | 4.50 - 6.00 M/cu mm | + + + + | HEMOGLOBIN | 11.6 (L) | 13.5 - 17.5 g/dL | + + + + | HEMATOCRIT | 34.2 (L) | 41.0 - 53.0 % | + + + + | MCV | 89.5 | 80.0 - 96.0 fL | + + + + | MCHC | 33.9 | 33.0 - 35.5 g/dL | + + + + | RDW SD | 45.5 | 35.1 - 46.3 fL | + + + + | PLATELET COUNT | 209 | 150 - 400 K/cu mm | + + + + | MPV | 10.0 | 9.7 - 12.3 fL | + + + + | NRBC% | 0.0 | 0.0 - 0.3 % | + + + + | NRBC# | 0.00 | 0.00 - 0.02 K/cu mm | + + + + + + + | Specimen | Performing Laboratory | + + + | Blood | [facility] LAB[facility], CORE [address] [place] [address] | | | [place] [address] | + + + BASIC METABOLIC SET (NA, K, CL, TCO2, BUN, CR, GLU, CA) (10/16/2017 4:14 AM) + +---------+ + | Component | Value | Ref Range | + +---------+ + | GLUCOSE, PLASMA | 115 (H) | 70 - 99 mg/dL | | (LAB) | | | + +---------+ + | BUN, PLASMA (LAB) | 19 | 6 - 20 mg/dL | + +---------+ + | CREATININE PLASMA | 1.26 | 0.70 - 1.30 mg/dL | | (LAB) | | | + +---------+ + | EGFR - | >60 | >60 mL/min | | GRENADIAN | | | + +---------+ + | EGFR NON | 58 (L) | >60 mL/min | | -GRENADIAN | | | + +---------+ + | SODIUM, PLASMA (LAB) | 137 | 136 - 145 mmol/L | + +---------+ + | POTASSIUM, PLASMA | 4.2 | 3.4 - 5.0 mmol/L | | (LAB) | | | + +---------+ + | CHLORIDE, PLASMA | 104 | 97 - 108 mmol/L | | (LAB) | | | + +---------+ + | TOTAL CO2, PLASMA | 25 | 21 - 32 mmol/L | | (LAB) | | | + +---------+ + | CALCIUM, PLASMA | 8.5 (L) | 8.6 - 10.2 mg/dL | | (LAB) | | | + +---------+ + | ANION GAP | 8 | 4 - 11 mmol/L | + +---------+ + | POTASSIUM CMNT | No Hemo | | + +---------+ + + + + | Specimen | Performing Laboratory | + + + | Blood | [facility], [address] | | | [place] [address] | + + + + + | [...] kidney function | + + CBC ONLY (10/16/2017 4:14 AM) + + + | Specimen | Performing Laboratory | + + + | Blood | | + + + + + | Narrative | + + | The following orders were created for panel order CBC ONLY. | | Procedure | | Abnormality Status | | --------- | | ------ CBC (HEMOGRAM) | | ONLY[[id number]] Abnormal Final | | result Please view results for these tests on the | | individual orders. | + + CARDIOLOGY (10/16/2017)CARDIOLOGY (10/16/2017)CARDIOLOGY (10/16/2017)CAPILLARY BLOOD GLUCOS E (NO CHG), POC (10/15/2017 6:07 PM) + +-------+ + | Component | Value | Ref Range | + +-------+ + | BLOOD GLUCOSE, POC | 96 | 70 - 99 mg/dL | + +-------+ + + + + | Specimen | Performing Laboratory | + + + | | [facility] POINT OF CARE TESTS [address] | | | [place] [address] | + + + 12 LEAD ECG (10/15/2017 2:40 PM) + + + + | Component [...] Laboratory | + + + | | [facility] [address] [place] [address] | | | [place] [address] | + + + CARDIAC CATH (10/15/2017 2:11 PM) + + | Procedure Note | + + | Tejal Modi MD - 10/15/2017 2:11 PM PST DATE OF PROCEDURE:October 15 | | 2018PERFORMING PHYSICIAN:Tejal Modi [facility] ATTENDING:Mike Bray MDThere was no | [...] 110 mL.FLUOROSCOPY TIME:17.8 minutes.FLUOROSCOPY | | DAP:7406.0 [id number]:1. Left ventricular pressure 91/23 mmHg.2. Aortic | | pressure 93/72 mmHg, mean of 80 mmHg. 3. Heart rate 71 beats per minute.ACCESS:1. | | 14-Thai Impella sheath in the right femoral artery.2. 7-Thai sheath in the left | | femoral artery.3. 6-Thai sheath in the right femoral vein.ESTIMATED BLOOD [...] | micropuncture technique and ultrasound guidance, a 5-Thai sheath was inserted in the | | right femoral artery and a 6-Thai sheath was inserted in the right femoral vein. Two | | Perclose devices were deployed in the preclosure method and then the 5-Thai sheath was | | exchanged over an Amplatz stiff wire for the 14-Thai Impella sheath. A 5-Thai | | angled pigtail catheter was then [...] technique and ultrasound guidance and placed a 7-Thai sheath. A 7-Thai XB 3.5 guide | | catheter was [...] and a 3.0 x 18 mm Resolute Wallace drug-eluting stent was advanced over the | [...] and pulled out of the body. The 14-Thai sheath was | | then removed and [...] with one 3.0 x 18 mm Resolute Wallace drug-eluting stent. Successful | | percutaneous coronary [...] | | Referral to cardiac rehabilitation on discharge.JASMYN Ramires confirm that Firas | | MD Ly supervised and was present throughout the entire procedure.BCN/MODLDD: | | 10/15/2017 13:25:02DT: 10/15/2017 14:11:10Job #: [id number] | |2. Lesion type: C. | |3. [...] with one 3.0 x 18 mm Resolute Alvaro drug-eluting stent. Successful percutaneous coronary transluminal angio [...] |BCN/MODL | | | | | | /[id number] | + + ACT, POC-CCL ONLY (10/15/2017 12:43 PM) + +-------+ + | Component | Value | Ref Range | + +-------+ + | ACT, POC CCL | 208 | 90 - 150 | | INTRAPROC | | | + +-------+ + + + + | Specimen | Performing Laboratory | + + + | Blood | [facility] POINT OF CARE TESTS [address] | | | [place] [address] | + + + ACT, POC-CCL ONLY (10/15/2017 12:17 PM) + +-------+ + | Component | Value | Ref Range | + +-------+ + | ACT, POC CCL | 247 | 90 - 150 | | INTRAPROC | | | + +-------+ + + + + | Specimen | Performing Laboratory | + + + | Blood | [facility], POINT OF CARE TESTS [address] | | | [place] [address] | + + + ACT, POC-CCL ONLY (10/15/2017 12:01 PM) + +-------+ + | Component | Value | Ref Range | + +-------+ + | ACT, POC CCL | 228 | 90 - 150 | | INTRAPROC | | | + +-------+ + + + + | Specimen | Performing Laboratory | + + + | Blood | [facility], POINT OF CARE TESTS [address] | | | [place] [address] | + + + FIRE FIGHTERS DISPATCHER EMERGENT/IMMEDIATE PROCEDURE (10/15/2017 11:00 AM) + + | Narrative | + + | Procedure performed in the Cardiac Manager Support Services. See procedure notes for details. | + + CAPILLARY BLOOD GLUCOSE (NO CHG), POC (10/15/2017 9:25 AM) + +---------+ + | Component | Value | Ref Range | + +---------+ + | BLOOD GLUCOSE, POC | 119 (H) | 70 - 99 mg/dL | + +---------+ + + + + | Specimen | Performing Laboratory | + + + | | [facility], POINT OF CARE TESTS [address] | | | [place] [address] | + + + CBC (HEMOGRAM) ONLY (10/15/2017 4:36 AM) + + + + | Component | Value | Ref Range | + + + + | WHITE CELL COUNT | 6.77 | 3.50 - 10.80 K/cu mm | + + + + | RED CELL COUNT | 3.76 (L) | 4.50 - 6.00 M/cu mm | + + + + | HEMOGLOBIN | 11.5 (L) | 13.5 - 17.5 g/dL | + + + + | HEMATOCRIT | 33.9 (L) | 41.0 - 53.0 % | + + + + | MCV | 90.2 | 80.0 - 96.0 fL | + + + + | MCHC | 33.9 | 33.0 - 35.5 g/dL | + + + + | RDW SD | 45.5 | 35.1 - 46.3 fL | + + + + | PLATELET COUNT | 205 | 150 - 400 K/cu mm | + + + + | MPV | 10.4 | 9.7 - 12.3 fL | + + + + | NRBC% | 0.0 | 0.0 - 0.3 % | + + + + | NRBC# | 0.00 | 0.00 - 0.02 K/cu mm | + + + + + + + | Specimen | Performing Laboratory | + + + | Blood | [facility], CORE [address] | | | [place] [address] | + + + BASIC METABOLIC SET (NA, K, CL, TCO2, BUN, CR, GLU, CA) (10/15/2017 4:36 AM) + + + + | Component | Value | Ref Range | + + + + | GLUCOSE, PLASMA | 120 (H) | 70 - 99 mg/dL | | (LAB) | | | + + + + | BUN, PLASMA (LAB) | 18 | 6 - 20 mg/dL | + + + + | CREATININE PLASMA | 1.52 (H) | 0.70 - 1.30 mg/dL | | (LAB) | | | + + + + | EGFR - | 57 (L) | >60 mL/min | | GRENADIAN | | | + + + + | EGFR NON | 47 (L) | >60 mL/min | | -GRENADIAN | | | + + + + | SODIUM, PLASMA (LAB) | 139 | 136 - 145 mmol/L | + + + + | POTASSIUM, PLASMA | 4.4 | 3.4 - 5.0 mmol/L | | (LAB) | | | + + + + | CHLORIDE, PLASMA | 105 | 97 - 108 mmol/L | | (LAB) | | | + + + + | TOTAL CO2, PLASMA | 27 | 21 - 32 mmol/L | | (LAB) | | | + + + + | CALCIUM, PLASMA | 8.7 | 8.6 - 10.2 mg/dL | | (LAB) | | | + + + + | ANION GAP | 7 | 4 - 11 mmol/L | + + + + | POTASSIUM CMNT | No Hemo | | + + + + + + + | Specimen | Performing Laboratory | + + + | Blood | [facility], CORE [address] [place] [address] | | | [place], [place] [address] | + + + + + | Narrative | + + | Adult glucose reference range change effective 717. GFR is estimated using the | | [...] kidney function | + + CBC ONLY (10/15/2017 4:36 AM) + + + | Specimen | Performing Laboratory | + + + | Blood | | + + + + + | Narrative | + + | The following orders were created for panel order CBC ONLY. | | Procedure | | Abnormality Status | | --------- | | ------ CBC (HEMOGRAM) | | ONLY[[id number]] Abnormal Final | | result Please view results for these tests on the | | individual orders. | + + INR (10/15/2017 4:36 AM) + +-------+ + | Component | Value | Ref Range | + +-------+ + | INR | 1.11 | 0.90 - 1.20 INR | + +-------+ + + + + | Specimen | Performing Laboratory | + + + | Blood | [facility], CORE [address] | | | [place] [address] | + + + + + | Narrative | + + | INR Therapeutic ranges for full anticoagulation: INR for Venous | | Thromboembolism (2.0 - 3.0) INR INR for most patients with | | mech. valves (2.5 - 3.5) INR | + + CARDIOLOGY (10/15/2017)CAPILLARY BLOOD GLUCOSE (NO CHG), POC (10/14/2017 5:49 PM) + +---------+ + | Component | Value | Ref Range | + +---------+ + | BLOOD GLUCOSE, POC | 112 (H) | 70 - 99 mg/dL | + +---------+ + + + + | Specimen | Performing Laboratory | + + + | | [facility], POINT OF CARE TESTS [address] | | | [place] [address] | + + + BASIC METABOLIC SET (NA, K, CL, TCO2, BUN, CR, GLU, CA) (10/14/2017 4:25 AM) + + + + | Component | Value | Ref Range | + + + + | GLUCOSE, PLASMA | 118 (H) | 70 - 99 mg/dL | | (LAB) | | | + + + + | BUN, PLASMA (LAB) | 18 | 6 - 20 mg/dL | + + + + | CREATININE PLASMA | 1.31 (H) | 0.70 - 1.30 mg/dL | | (LAB) | | | + + + + | EGFR - | >60 | >60 mL/min | | GRENADIAN | | | + + + + | EGFR NON | 55 (L) | >60 mL/min | | -GRENADIAN | | | + + + + | SODIUM, PLASMA (LAB) | 141 | 136 - 145 mmol/L | + + + + | POTASSIUM, PLASMA | 4.3 | 3.4 - 5.0 mmol/L | | (LAB) | | | + + + + | CHLORIDE, PLASMA | 107 | 97 - 108 mmol/L | | (LAB) | | | + + + + | TOTAL CO2, PLASMA | 25 | 21 - 32 mmol/L | | (LAB) | | | + + + + | CALCIUM, PLASMA | 8.5 (L) | 8.6 - 10.2 mg/dL | | (LAB) | | | + + + + | ANION GAP | 9 | 4 - 11 mmol/L | + + + + | POTASSIUM CMNT | No Hemo | | + + + + + + + | Specimen | Performing Laboratory | + + + | Blood | [facility], CORE [address] | | | [place] [address] | + + + + + | [...] changing kidney function | + + CBC (HEMOGRAM) ONLY (10/14/2017 4:24 AM) + + + + | Component | Value | Ref Range | + + + + | WHITE CELL COUNT | 7.44 | 3.50 - 10.80 K/cu mm | + + + + | RED CELL COUNT | 3.73 (L) | 4.50 - 6.00 M/cu mm | + + + + | HEMOGLOBIN | 11.1 (L) | 13.5 - 17.5 g/dL | + + + + | HEMATOCRIT | 33.7 (L) | 41.0 - 53.0 % | + + + + | MCV | 90.3 | 80.0 - 96.0 fL | + + + + | MCHC | 32.9 | 33.0 - 35.5 g/dL | + + + + | RDW SD | 46.3 | 35.1 - 46.3 fL | + + + + | PLATELET COUNT | 216 | 150 - 400 K/cu mm | + + + + | MPV | 10.0 | 9.7 - 12.3 fL | + + + + | NRBC% | 0.0 | 0.0 - 0.3 % | + + + + | NRBC# | 0.00 | 0.00 - 0.02 K/cu mm | + + + + + + + | Specimen | Performing Laboratory | + + + | Blood | [facility], CORE [address] | | | [place] [address] | + + + CBC ONLY (10/14/2017 4:24 AM) + + + | Specimen | Performing Laboratory | + + + | Blood | | + + + + + | Narrative | + + | The following orders were created for panel order CBC ONLY. | | Procedure | | Abnormality Status | | --------- | | ------ CBC (HEMOGRAM) | | ONLY[[id number]] Abnormal Final | | result Please view results for these tests on the | | individual orders. | + + CARDIOLOGY (10/14/2017)CARDIOLOGY (10/14/2017)CAPILLARY BLOOD GLUCOSE (NO CHG), POC (2017 7:36 PM) + +-------+ + | Component | Value | Ref Range | + +-------+ + | BLOOD GLUCOSE, POC | 89 | 70 - 99 mg/dL | + +-------+ + + + + | Specimen | Performing Laboratory | + + + | | [facility], POINT OF CARE TESTS [address] | | | [place] [address] | + + + PET CARDIAC METABOLIC (10/13/2017 6:06 [...] | | significant tracer uptake within the pmi-xk-tmkcil anterior wall/interventricular septum | | and apex [...] Note | + + | Service Account, StreetOwl In Interface - 10/14/2017 5:47 PM PST [...] significant tracer | | uptake within the rqe-zr-khdgwy anterior wall/interventricular septum and apex | | corresponding to same non-perfused areas seen on myocardial rest perfusion scan, | | compatible with nonviable myocardium in these regions. I have personally reviewed the | | images and, if necessary, edited the report. I agree with the report as now presented. | |No significant tracer uptake within the dzy-bf-dklskc anterior wall/interventricular septum and apex corresponding to same non-perfused areas seen on myocardial rest perfusion scan, c ompatible with nonviable myocardium in these regions. | | | | | |I have personally reviewed the images and, if necessary, edited the report. I agree with t he report as now presented. | + + CAPILLARY BLOOD GLUCOSE (NO CHG), POC (10/13/2017 4:49 PM) + +---------+ + | Component | Value | Ref Range | + +---------+ + | BLOOD GLUCOSE, POC | 143 (H) | 70 - 99 mg/dL | + +---------+ + + + + | Specimen | Performing Laboratory | + + + | | [facility], POINT OF CARE TESTS [address] | | | [place] [address] | + + + CAPILLARY BLOOD GLUCOSE (NO CHG), POC (10/13/2017 4:32 PM) + +---------+ + | Component | Value | Ref Range | + +---------+ + | BLOOD GLUCOSE, POC | 159 (H) | 70 - 99 mg/dL | + +---------+ + + + + | Specimen | Performing Laboratory | + + + | | [facility] POINT OF CARE TESTS [address] | | | [place] [address] | + + + CAPILLARY BLOOD GLUCOSE (NO CHG), POC (10/13/2017 4:16 PM) + +---------+ + | Component | Value | Ref Range | + +---------+ + | BLOOD GLUCOSE, POC | 201 (H) | 70 - 99 mg/dL | + +---------+ + + + + | Specimen | Performing Laboratory | + + + | | [facility], POINT OF CARE TESTS [address] | | | [place] [address] | + + + CAPILLARY BLOOD GLUCOSE (NO CHG), POC (10/13/2017 4:02 PM) + +---------+ + | Component | Value | Ref Range | + +---------+ + | BLOOD GLUCOSE, POC | 202 (H) | 70 - 99 mg/dL | + +---------+ + + + + | Specimen | Performing Laboratory | + + + | | [facility], POINT OF CARE TESTS [address] | | | [place] [address] | + + + CAPILLARY BLOOD GLUCOSE (NO CHG), POC (10/13/2017 3:47 PM) + +---------+ + | Component | Value | Ref Range | + +---------+ + | BLOOD GLUCOSE, POC | 181 (H) | 70 - 99 mg/dL | + +---------+ + + + + | Specimen | Performing Laboratory | + + + | | [facility], POINT OF CARE TESTS [address] | | | [place] [address] | + + + CAPILLARY BLOOD GLUCOSE (NO CHG), POC (10/13/2017 3:30 PM) + +---------+ + | Component | Value | Ref Range | + +---------+ + | BLOOD GLUCOSE, POC | 204 (H) | 70 - 99 mg/dL | + +---------+ + + + + | Specimen | Performing Laboratory | + + + | | [facility], POINT OF CARE TESTS [address] | | | [place] [address] | + + + CAPILLARY BLOOD GLUCOSE (NO CHG), POC (10/13/2017 3:16 PM) + +---------+ + | Component | Value | Ref Range | + +---------+ + | BLOOD GLUCOSE, POC | 162 (H) | 70 - 99 mg/dL | + +---------+ + + + + | Specimen | Performing Laboratory | + + + | | [facility] - [facility], POINT OF CARE TESTS [address] | | | [place] [address] | + + + CAPILLARY BLOOD GLUCOSE (NO CHG), POC (10/13/2017 3:03 PM) + +---------+ + | Component | Value | Ref Range | + +---------+ + | BLOOD GLUCOSE, POC | 153 (H) | 70 - 99 mg/dL | + +---------+ + + + + | Specimen | Performing Laboratory | + + + | | [facility], POINT OF CARE TESTS [address] | | | [place] [address] | + + + CAPILLARY BLOOD GLUCOSE (NO CHG), POC (10/13/2017 2:44 PM) + +---------+ + | Component | Value | Ref Range | + +---------+ + | BLOOD GLUCOSE, POC | 130 (H) | 70 - 99 mg/dL | + +---------+ + + + + | Specimen | Performing Laboratory | + + + | | [facility], POINT OF CARE TESTS [address] | | | [place] [address] | + + + CAPILLARY BLOOD GLUCOSE (NO CHG), POC (10/13/2017 2:02 PM) + +---------+ + | Component | Value | Ref Range | + +---------+ + | BLOOD GLUCOSE, POC | 105 (H) | 70 - 99 mg/dL | + +---------+ + + + + | Specimen | Performing Laboratory | + + + | | [facility] POINT OF CARE TESTS [address] | | | [place] [address] | + + + CAPILLARY BLOOD GLUCOSE (NO CHG), POC (10/13/2017 12:41 PM) + +---------+ + | Component | Value | Ref Range | + +---------+ + | BLOOD GLUCOSE, POC | 103 (H) | 70 - 99 mg/dL | + +---------+ + + + + | Specimen | Performing Laboratory | + + + | | [facility] POINT OF CARE TESTS [address] | | | [place] [address] | + + + NM MYOCARDIAL PERFUSION (SPECT) SINGLE AT REST OR STRESS (10/13/2017 11:18 AM) + + + | Specimen | Performing Laboratory | + + + | | [facility] VOICE RECOGNITION | + + + [...] Note | + + | Service Account, StreetOwl In Interface - 10/13/2017 5:30 PM PST [...] report as now presented. | + + CAPILLARY BLOOD GLUCOSE (NO CHG), POC (10/13/2017 6:35 AM) + +---------+ + | Component | Value | Ref Range | + +---------+ + | BLOOD GLUCOSE, POC | 124 (H) | 70 - 99 mg/dL | + +---------+ + + + + | Specimen | Performing Laboratory | + + + | | [facility], POINT OF CARE TESTS [address] | | | [place] [address] | + + + CBC (HEMOGRAM) ONLY (10/13/2017 4:05 AM) + + + + | Component | Value | Ref Range | + + + + | WHITE CELL COUNT | 7.35 | 3.50 - 10.80 K/cu mm | + + + + | RED CELL COUNT | 3.67 (L) | 4.50 - 6.00 M/cu mm | + + + + | HEMOGLOBIN | 11.0 (L) | 13.5 - 17.5 g/dL | + + + + | HEMATOCRIT | 32.8 (L) | 41.0 - 53.0 % | + + + + | MCV | 89.4 | 80.0 - 96.0 fL | + + + + | MCHC | 33.5 | 33.0 - 35.5 g/dL | + + + + | RDW SD | 45.5 | 35.1 - 46.3 fL | + + + + | PLATELET COUNT | 209 | 150 - 400 K/cu mm | + + + + | MPV | 10.3 | 9.7 - 12.3 fL | + + + + | NRBC% | 0.0 | 0.0 - 0.3 % | + + + + | NRBC# | 0.00 | 0.00 - 0.02 K/cu mm | + + + + + + + | Specimen | Performing Laboratory | + + + | Blood | [facility], [address] | | | [place] [address] | + + + BASIC METABOLIC SET (NA, K, CL, TCO2, BUN, CR, GLU, CA) (10/13/2017 4:05 AM) + +---------+ + | Component | Value | Ref Range | + +---------+ + | GLUCOSE, PLASMA | 114 (H) | 70 - 99 mg/dL | | (LAB) | | | + +---------+ + | BUN, PLASMA (LAB) | 20 | 6 - 20 mg/dL | + +---------+ + | CREATININE PLASMA | 1.25 | 0.70 - 1.30 mg/dL | | (LAB) | | | + +---------+ + | EGFR - | >60 | >60 mL/min | | GRENADIAN | | | + +---------+ + | EGFR NON | 59 (L) | >60 mL/min | | -GRENADIAN | | | + +---------+ + | SODIUM, PLASMA (LAB) | 140 | 136 - 145 mmol/L | + +---------+ + | POTASSIUM, PLASMA | 4.1 | 3.4 - 5.0 mmol/L | | (LAB) | | | + +---------+ + | CHLORIDE, PLASMA | 109 (H) | 97 - 108 mmol/L | | (LAB) | | | + +---------+ + | TOTAL CO2, PLASMA | 24 | 21 - 32 mmol/L | | (LAB) | | | + +---------+ + | CALCIUM, PLASMA | 8.3 (L) | 8.6 - 10.2 mg/dL | | (LAB) | | | + +---------+ + | ANION GAP | 7 | 4 - 11 mmol/L | + +---------+ + | POTASSIUM CMNT | No Hemo | | + +---------+ + + + + | Specimen | Performing Laboratory | + + + | Blood | [facility], [address] | | | [place] [address] | + + + + + | Narrative | + + | Adult glucose reference range change effective 712-17. GFR is estimated using the | | [...] kidney function | + + CBC ONLY (10/13/2017 4:05 AM) + + + | Specimen | Performing Laboratory | + + + | Blood | | + + + + + | Narrative | + + | The following orders were created for panel order CBC ONLY. | | Procedure | | Abnormality Status | | --------- | | ------ CBC (HEMOGRAM) | | ONLY[[id number]] Abnormal Final | | result Please view results for these tests on the | | individual orders. | + + CAPILLARY BLOOD GLUCOSE (NO CHG), POC (10/13/2017 12:17 AM) + +---------+ + | Component | Value | Ref Range | + +---------+ + | BLOOD GLUCOSE, POC | 131 (H) | 70 - 99 mg/dL | + +---------+ + + + + | Specimen | Performing Laboratory | + + + | | [facility], POINT OF CARE TESTS [address] | | | [place] [address] | + + + CARDIOLOGY (10/13/2017)CARDIOLOGY (10/13/2017)APTT (ACT. PART. THROMBO TIME) (10/12/2017 8 :44 PM) + +-------+ + | Component | Value | Ref Range | + +-------+ + | APTT | 28.7 | 26.0 - 36.0 seconds | + +-------+ + + + + | Specimen | Performing Laboratory | + + + | Blood | [facility], CORE [address] [place] [address] | | | [place], [place] [address] | + + + + + | Narrative | + + | Acute Coronary Syndrome Heparin Protocol aPTT 6 hrs after every heparin rate | | change; If aPTT within target range for 2 consecutive results, recheck every AM APTT | | Therapeutic Range: (75 - 120) sec | | Heparin levels of 0.35 - 0.7 U/mL | + + CAPILLARY BLOOD GLUCOSE (NO CHG), POC (10/12/2017 5:44 PM) + +---------+ + | Component | Value | Ref Range | + +---------+ + | BLOOD GLUCOSE, POC | 145 (H) | 70 - 99 mg/dL | + +---------+ + + + + | Specimen | Performing Laboratory | + + + | | [facility], POINT OF CARE TESTS [address] | | | [place] [address] | + + + MR CARDIAC COMPREHENSIVE W/O CONTRAST (10/12/2017 12:38 PM) + + + | Specimen | Performing Laboratory | + + + | | [facility] | + + + + + | Narrative | + + | Report ====== Cattle And Wheat Farmer: Rodríguez Fortune ([id number])shubham Ruling Machine Feeder: shubham | | richy Fellow: shubham lockhart Academic Affairs Vice President: shubham lockhart Viewer: shubham | | richy Report Date: 16 Oct 2017, 09:22:25 PST Patient ------- Patient: | | RON MCKEON Neena Acc #: [id number] | | Ethnicity: N Status: Final Report [...] Formula) | | Image Quality: Good Scanner Title Inspector: ChoicePass Scanner Model: Ingenia | | Scanner Serial Number: [id number] Scanner Software Platform: [id number] Staff: Rodríguez Fortune Modality: MR Indication Name: routine Protocol Name: CMR W Flows WO Contrast | | Findings -------- Non-cardiac findings were reviewed by Dr. Curtis. This exam was | | terminated prematurely and is lmiited to assistant construction superintendent images. There are bilateral pleural | | [...] Service Account, Radiant Res In Interface - 10/16/2017 9:22 AM PST | | Report======Cattle And Wheat Farmer: Rodríguez Fortune ([id number]), shubham Rodriguezalyst: shubham | | Lorena: shubham Beckician: shubham Beckwithwer: shubham | | espinozamRalbertoort Date: 16 Oct 2017, 09:22:25 PSTPatient-------Patient: RON MCKEON | | JMedical Record Number: [id number] ID: [id number] #: [id number]: NStatus: | | Final ReportReport Number: [id number]: MaleBirthdate: 1955 (61 yrs)Study Date: 05 | | Oct 2017Study Description: CMR with Flows with ContrastReferring Physician: KHURRAM | | VIKASHITRADHABlood Pressure: /Heart rate:Height (cm): 0Weight (kg): 89BMI (kg/m ): 0BSA | | (m ): 0 (Mosteller Formula)Image Quality: Assembly Pharmacanner Title Inspector: [employer] | | [place] Hasee computerScRallyCause Model: [employer] Serial Number: [id number] Software Platform: | | [id number]: Rodríguez FortuneModality: MRIndication Name: routineProtocol Name: | | CMR W Flows WO ContrastFindings--------Non-cardiac findings were reviewed by | | Ever.This exam was terminated prematurely and is lmiited to assistant construction superintendent images.There are | | bilateral pleural effusions. [...] Formula) | |Image Quality: Good | |Scanner Title Inspector: ChoicePass | |Scanner Model: Say-Hey | |Scanner Serial Number: [id number] | |Scanner Software Platform: [id number] | |Staff: Rodríguez Fortune | |Modality: MR | |Indication Name: routine | |Protocol Name: CMR W Flows WO Contrast | |Findings | |-------- | |Non-cardiac findings were reviewed by Dr. Curtis. | |This exam was terminated prematurely and is lmiited to assistant construction superintendent images. | |There are bilateral pleural effusions. [...] report as now presented. | + + CAPILLARY BLOOD GLUCOSE (NO CHG), POC (10/12/2017 10:43 AM) + +---------+ + | Component | Value | Ref Range | + +---------+ + | BLOOD GLUCOSE, POC | 118 (H) | 70 - 99 mg/dL | + +---------+ + + + + | Specimen | Performing Laboratory | + + + | | EULOGIO - ANA MARIA SILVA, POINT OF CARE TESTS [address] | | | [place] [address] | + + + CBC (HEMOGRAM) ONLY (10/12/2017 7:01 AM) + + + + | Component | Value | Ref Range | + + + + | WHITE CELL COUNT | 6.50 | 3.50 - 10.80 K/cu mm | + + + + | RED CELL COUNT | 3.75 (L) | 4.50 - 6.00 M/cu mm | + + + + | HEMOGLOBIN | 11.3 (L) | 13.5 - 17.5 g/dL | + + + + | HEMATOCRIT | 33.7 (L) | 41.0 - 53.0 % | + + + + | MCV | 89.9 | 80.0 - 96.0 fL | + + + + | MCHC | 33.5 | 33.0 - 35.5 g/dL | + + + + | RDW SD | 45.3 | 35.1 - 46.3 fL | + + + + | PLATELET COUNT | 198 | 150 - 400 K/cu mm | + + + + | MPV | 10.6 | 9.7 - 12.3 fL | + + + + | NRBC% | 0.0 | 0.0 - 0.3 % | + + + + | NRBC# | 0.00 | 0.00 - 0.02 K/cu mm | + + + + + + + | Specimen | Performing Laboratory | + + + | Blood | [facility], [address] [place] [address] | | | [place] [address] | + + + APTT (ACT. PART. THROMBO TIME) (10/12/2017 7:01 AM) + + + + | Component | Value | Ref Range | + + + + | APTT | 50.7 (H) | 26.0 - 36.0 seconds | + + + + + + + | Specimen | Performing Laboratory | + + + | Blood | [facility] [address] | | | [place] [address] | + + + + + | Narrative | + + | APTT Therapeutic Range: (75 - 120) sec | | Heparin levels of 0.35 - 0.7 U/mL | + + BASIC METABOLIC SET (NA, K, CL, TCO2, BUN, CR, GLU, CA) (10/12/2017 7:01 AM) + + + + | Component | Value | Ref Range | + + + + | GLUCOSE, PLASMA | 108 (H) | 70 - 99 mg/dL | | (LAB) | | | + + + + | BUN, PLASMA (LAB) | 21 (H) | 6 - 20 mg/dL | + + + + | CREATININE PLASMA | 1.31 (H) | 0.70 - 1.30 mg/dL | | (LAB) | | | + + + + | EGFR - | >60 | >60 mL/min | | GRE[place]DI[place] | | | + + + + | EGFR NON | 55 (L) | >60 mL/min | | -GRE[place]DIAN | | | + + + + | SODIUM, PLASMA (LAB) | 141 | 136 - 145 mmol/L | + + + + | POTASSIUM, PLASMA | 3.8 | 3.4 - 5.0 mmol/L | | (LAB) | | | + + + + | CHLORIDE, PLASMA | 107 | 97 - 108 mmol/L | | (LAB) | | | + + + + | TOTAL CO2, PLASMA | 24 | 21 - 32 mmol/L | | (LAB) | | | + + + + | CALCIUM, PLASMA | 8.2 (L) | 8.6 - 10.2 mg/dL | | (LAB) | | | + + + + | ANION GAP | 10 | 4 - 11 mmol/L | + + + + | POTASSIUM CMNT | No Hemo | | + + + + + + + | Specimen | Performing Laboratory | + + + | Blood | [facility], CORE [address] | | | [place] [address] | + + + + + | [...] kidney function | + + CBC ONLY (10/12/2017 7:01 AM) + + + | Specimen | Performing Laboratory | + + + | Blood | | + + + + + | Narrative | + + | The following orders were created for panel order CBC ONLY. | | Procedure | | Abnormality Status | | --------- | | ------ CBC (HEMOGRAM) | | ONLY[[id number]] Abnormal Final | | result Please view results for these tests on the | | individual orders. | + + APTT (ACT. PART. THROMBO TIME) (10/12/2017 12:34 AM) + + + + | Component | Value | Ref Range | + + + + | APTT | 51.8 (H) | 26.0 - 36.0 seconds | + + + + + + + | Specimen | Performing Laboratory | + + + | Blood | [facility], CORE [address] [place] [address] | | | [place] [address] | + + + + + | Narrative | + + | APTT Therapeutic Range: (75 - 120) sec | | Heparin levels of 0.35 - 0.7 U/mL | + + CARDIOLOGY (10/12/2017)CARDIOLOGY (10/12/2017)CAPILLARY BLOOD GLUCOSE (NO CHG), POC (2017 11:20 PM) + +---------+ + | Component | Value | Ref Range | + +---------+ + | BLOOD GLUCOSE, POC | 178 (H) | 70 - 99 mg/dL | + +---------+ + + + + | Specimen | Performing Laboratory | + + + | | EULOGIO [place], POINT OF CARE TESTS [address] | | | [place] [address] | + + + CAPILLARY BLOOD GLUCOSE (NO CHG), POC (10/11/2017 8:40 PM) + +---------+ + | Component | Value | Ref Range | + +---------+ + | BLOOD GLUCOSE, POC | 113 (H) | 70 - 99 mg/dL | + +---------+ + + + + | Specimen | Performing Laboratory | + + + | | EULOGIO [place], POINT OF CARE TESTS [address] | | | [place] [address] | + + + CULTURE, SPUTUM (10/11/2017 5:45 PM) + + + | Specimen | Performing Laboratory | + + + | Sputum | [facility] [address], [place] | | | [address] | + + + + + | Narrative | + + | Culture Report: This culture has been discontinued. Gram Stain: Squamous | | epithelial cells in the specimen indicate the presence of significant oropharyngeal | | contamination. CRITICAL RESULTS Results called to and verified by: Vicki | | Amy at phone # [facility] on: 10/12/2017 8:10:02 AM PST by: [id number] | + + APTT (ACT. PART. THROMBO TIME) (10/11/2017 4:49 PM) + + + + | Component | Value | Ref Range | + + + + | APTT | 39.7 (H) | 26.0 - 36.0 seconds | + + + + + + + | Specimen | Performing Laboratory | + + + | Blood | [facility], CORE [address] | | | [place] [address] | + + + + + | Narrative | + + | APTT Therapeutic Range: (75 - 120) sec | | Heparin levels of 0.35 - 0.7 U/mL | + + CBC (HEMOGRAM) ONLY (10/11/2017 12:43 PM) + + + + | Component | Value | Ref Range | + + + + | WHITE CELL COUNT | 7.76 | 3.50 - 10.80 K/cu mm | + + + + | RED CELL COUNT | 4.14 (L) | 4.50 - 6.00 M/cu mm | + + + + | HEMOGLOBIN | 12.5 (L) | 13.5 - 17.5 g/dL | + + + + | HEMATOCRIT | 36.6 (L) | 41.0 - 53.0 % | + + + + | MCV | 88.4 | 80.0 - 96.0 fL | + + + + | MCHC | 34.2 | 33.0 - 35.5 g/dL | + + + + | RDW SD | 44.4 | 35.1 - 46.3 fL | + + + + | PLATELET COUNT | 231 | 150 - 400 K/cu mm | + + + + | MPV | 10.9 | 9.7 - 12.3 fL | + + + + | NRBC% | 0.0 | 0.0 - 0.3 % | + + + + | NRBC# | 0.00 | 0.00 - 0.02 K/cu mm | + + + + + + + | Specimen | Performing Laboratory | + + + | Blood | [facility], [place] [address] [place] [address] | | [facility] [place] [address] | + + + APTT (ACT. PART. THROMBO TIME) (10/11/2017 12:43 PM) + + + + | Component | Value | Ref Range | + + + + | APTT | 45.6 (H) | 26.0 - 36.0 seconds | + + + + + + + | Specimen | Performing Laboratory | + + + | Blood | [facility] [address] | | | [place] [address] | + + + + + | Narrative | + + | APTT Therapeutic Range: (75 - 120) sec | | Heparin levels of 0.35 - 0.7 U/mL | + + HEMOGLOBIN A1C, BLOOD (10/11/2017 [...] | + + + | Blood | [facility], SPECIAL IMM + COAG [address] | | | [place] [address] | + + + + + | Narrative | + + | Alternate forms of testing such as fructosamine should be considered for | | monitoring terminal worker glycemic control in patients with: Increased red cell turnover, | | certain hemoglobinopathies (e.g., HbS, HbE, HbC and thalassemia syndromes), anemias, | | blood loss, chronic liver disease and hemochromatosis (artefactually low HbA1c); iron | | deficiency anemia (artefactually high HbA1c due to enhanced glycation of hemoglobin). | | Alternate forms of testing such as fructosamine should be considered for | | monitoring snf glycemic control in patients with: Increased red cell turnover, | | certain hemoglobinopathies (e.g., HbS, HbE, HbC and thalassemia syndromes), anemias, | | blood loss, chronic liver disease and hemochromatosis (artefactually low HbA1c); iron | | deficiency anemia (artefactually high HbA1c due to enhanced glycation of hemoglobin). | | | + + CBC ONLY (10/11/2017 12:43 PM) + + + | Specimen | Performing Laboratory | + + + | Blood | | + + + + + | Narrative | + + | The following orders were created for panel order CBC ONLY. | | Procedure | | Abnormality Status | | --------- | | ------ CBC (HEMOGRAM) | | ONLY[[id number]] Abnormal Final | | result Please view results for these tests on the | | individual orders. | + + TRANSTHORACIC ECHOCARDIOGRAM, ADULT (10/11/2017 [...] Laboratory | + + + | | [facility] DEPT OF CARDIOLOGY [address] [place] [address] | | | [place] [address] | + + + + + | Narrative | + + | [facility] Adult Echocardiography [facility] | | [address], [place] [address] Ph: | | Pt Name: RON MCKEON Study | | Date/Time 10/11/2017 / 11:47:35 AM | | Most recent prior: 03/30/2017 Acc #: [id number] No. previous | | echos: 4 : 1955 61 years Heart Rate: 84 bpm | | Height: 69.0 in Blood Pressure: 115/68 mm/Hg | | Weight: 196.0 lb Gender: M | | BSA: 2.05 m2 Order ID: [id number] | | [employer] Farmer: Shahab Sutton [facility] Referring Provider: Kimmy Low Patient | | Location: 7C Modalities Performed: 2D, Color flow, Spectral Doppler and Lumason | | contrast. Study Quality: Fair. Imaging Limitations: Patient size and body habitus. and | | there is prominent lung artifact seen. Exam Indication: Chest pain History: 61 year | | old male with extensive PMHx including STEMI, CAD, ICM, HTN, aflutter, and previous | | tobacco use disorder who presents on transfer from [place] for consideration of | | complex PCI [...] | Wall Scoring: Report electronically signed by: [id number] Khurram Bedoya MD | | (10/11/2017, 12:59:49 PM) Final (Updated) | + + + + | Procedure Note | + + | Interface, Ecg Results - 10/11/2017 1:00 PM [facility] [employer] | | [facility] Echocardiography Laboratory [facility] | | [place], [place] [address] Pt Name: RON Chaudhary | | MIKE Study Date/Time 10/11/2017 / 11:47:35 AMMRN: [id number] Most | | recent prior: 03/30/2017Acc #: [id number] No. previous echos: 4DOB: | | 1955 61 years Heart Rate: 84 bpmHeight: 69.0 in Blood | | Pressure: 115/68 mm/HgWeight: 196.0 lb Gender: MBSA: | | 2.05 m2 Order ID: [id number] [employer] Farmer: Shahab Sutton RDCSReferring | | Provider: Kimmy [...] use disorder who presents on transfer from [place] | | for consideration of complex PCI [...] Ao (prox) | | 3.70 cm 18.1 mm/[id number] of chamber size and geometry is accomplished | | through the incorporation of linear, volumetric, and indexed values Wall Scoring: Report | | electronically signed by: [id number] Khurram Bedoya MD (10/11/2017, 12:59:49 PM) | [...] | | | |Report electronically signed by: [id number] Khurram Bedoya MD (10/11/2017, 12:59:49 | |PM) | | | | | | | | Final (Updated) | + + X-RAY PORTABLE CHEST 1 VIEW (10/11/2017 11:24 AM) + + + | Specimen | Performing Laboratory | + + + | | [facility] RADIOLOGY VOICE RECOGNITION | + + + + + | Narrative | + + | STUDY: [place] CHEST 1 VIEW COMPARISON: 03/21/17. HISTORY: Cough. FINDINGS: | | The increased lung volumes. Patchy groundglass opacities are observed in the left | | lateral lung base with silhouetting of the diaphragm. There may be a small left pleural | | effusion. No right pleural effusion no obvious pneumothorax is seen. The remaining lung | | zones are clear. The cardiac and mediastinal borders are normal. IMPRESSION: | | Patchy groundglass opacities in the left lower lobe may represent developing pneumonia | | in the appropriate clinical setting. I have personally reviewed the images | | and, if necessary, edited the report. I agree with the report as now presented. | + + + + | Procedure Note | + + | Service Account, [place] [facility] In Interface - 10/11/2017 1:51 PM PST STUDY: [place] CHEST 1 | | VIEW COMPARISON: 03/21/17.HISTORY: Cough.FINDINGS: The increased lung volumes. Patchy | | groundglass opacities are observed in the left lateral lung base with silhouetting of | | the diaphragm. There may be a small left pleural effusion. No right pleural effusion no | | obvious pneumothorax is seen. The remaining lung zones are clear. The cardiac and | | mediastinal borders are normal.IMPRESSION:Patchy groundglass opacities in the left lower | | lobe may represent developing pneumonia in the appropriate clinical setting.I have | | personally reviewed the images and, if necessary, edited the report. I agree with the | | report as now presented. | |pneumothorax is seen. The remaining lung zones are clear. The cardiac and mediastinal borde rs are normal. | | | |IMPRESSION: | | | |Patchy groundglass opacities in the left lower lobe may represent developing pneumonia in t he appropriate clinical setting. | | | | | | | |I have personally reviewed the images and, if necessary, edited the report. I agree with t he report as now presented. | + + CBC (HEMOGRAM) ONLY (10/11/2017 6:31 AM) + + + + | Component | Value | Ref Range | + + + + | WHITE CELL COUNT | 6.72 | 3.50 - 10.80 K/cu mm | + + + + | RED CELL COUNT | 3.85 (L) | 4.50 - 6.00 M/cu mm | + + + + | HEMOGLOBIN | 11.6 (L) | 13.5 - 17.5 g/dL | + + + + | HEMATOCRIT | 34.2 (L) | 41.0 - 53.0 % | + + + + | MCV | 88.8 | 80.0 - 96.0 fL | + + + + | MCHC | 33.9 | 33.0 - 35.5 g/dL | + + + + | RDW SD | 44.7 | 35.1 - 46.3 fL | + + + + | PLATELET COUNT | 164 | 150 - 400 K/cu mm | + + + + | MPV | 10.5 | 9.7 - 12.3 fL | + + + + | NRBC% | 0.0 | 0.0 - 0.3 % | + + + + | NRBC# | 0.00 | 0.00 - 0.02 K/cu mm | + + + + + + + | Specimen | Performing Laboratory | + + + | Blood | [facility], CORE [address] | | | [place] [address] | + + + CBC ONLY (10/11/2017 6:31 AM) + + + | Specimen | Performing Laboratory | + + + | Blood | | + + + + + | Narrative | + + | The following orders were created for panel order CBC ONLY. | | Procedure | | Abnormality Status | | --------- | | ------ CBC (HEMOGRAM) | | ONLY[[id number]] Abnormal Final | | result Please view results for these tests on the | | individual orders. | + + HEPARIN, EITHER STANDARD / LMW, BLOOD (10/11/2017 6:31 AM) + +-------+ + | Component | Value | Ref Range | + +-------+ + | HEPARIN, STD LMW | 0.38 | U/mL | + +-------+ + + + + | Specimen | Performing Laboratory | + + + | Blood | [facility], [address] [address] | | | [place] [address] | + + + + + | [...] | >60 | >60 mL/min | | GRE[place]DI[place] | | | + +---------+ + | EGFR NON | >60 | >60 mL/min | | -[place]DI[place] | | | + +---------+ + | [...] + + + | Blood | [facility], [address] [address] | | | [place] [address] | + + + + + | Narrative | + + | Adult glucose reference range change effective 712-17. GFR is estimated using the | | [...] Rapidly changing kidney function | + + CARDIOLOGY (10/11/2017)CBC (HEMOGRAM) ONLY (10/10/2017 11:27 PM) + + + + | Component | Value | Ref Range | + + + + | WHITE CELL COUNT | 6.66 | 3.50 - 10.80 K/cu mm | + + + + | RED CELL COUNT | 3.92 (L) | 4.50 - 6.00 M/cu mm | + + + + | HEMOGLOBIN | 11.8 (L) | 13.5 - 17.5 g/dL | + + + + | HEMATOCRIT | 34.3 (L) | 41.0 - 53.0 % | + + + + | MCV | 87.5 | 80.0 - 96.0 fL | + + + + | MCHC | 34.4 | 33.0 - 35.5 g/dL | + + + + | RDW SD | 43.7 | 35.1 - 46.3 fL | + + + + | PLATELET COUNT | 164 | 150 - 400 K/cu mm | + + + + | MPV | 10.5 | 9.7 - 12.3 fL | + + + + | NRBC% | 0.0 | 0.0 - 0.3 % | + + + + | NRBC# | 0.00 | 0.00 - 0.02 K/cu mm | + + + + + + + | Specimen | Performing Laboratory | + + + | Blood | [facility], CORE [address] [place] [address] | | | [place] [address] | + + + APTT (ACT. PART. THROMBO TIME) (10/10/2017 11:27 PM) + +-------+ + | Component | Value | Ref Range | + +-------+ + | APTT | 29.5 | 26.0 - 36.0 seconds | + +-------+ + + + + | Specimen | Performing Laboratory | + + + | Blood | [facility] [address] | | | [place] [address] | + + + + + | Narrative | + + | APTT Therapeutic Range: (75 - 120) sec | | Heparin levels of 0.35 - 0.7 U/mL | + + INR (10/10/2017 11:27 PM) + +-------+ + | Component | Value | Ref Range | + +-------+ + | INR | 1.08 | 0.90 - 1.20 INR | + +-------+ + + + + | Specimen | Performing Laboratory | + + + | Blood | [facility], [address] | | | [place] [address] | + + + + + | Narrative | + + | INR Therapeutic ranges for full anticoagulation: INR for Venous | | Thromboembolism (2.0 - 3.0) INR INR for most patients with | | mech. valves (2.5 - 3.5) INR | + + CBC ONLY (10/10/2017 11:27 PM) + + + | Specimen | Performing Laboratory | + + + | Blood | | + + + + + | Narrative | + + | The following orders were created for panel order CBC ONLY. | | Procedure | | Abnormality Status | | --------- | | ------ CBC (HEMOGRAM) | | ONLY[[id number]] Abnormal Final | | result Please view results for these tests on the | | individual orders. | + + LIPID SET (TRIG, T [...] | + + + | Blood | [facility], [address] | | | [place] [address] | + + + + + | [...] | Desirable: >=60 mg/dL | + + 12 LEAD ECG (10/10/2017 11:13 PM) + + + + | Component | Value | Ref Range | + + + + | VENTRICULAR RATE | 79 | bpm | + + + + | ATRIAL RATE | 79 | ms | + + + + | P-R INTERVAL | 161 | ms | + + + + | P AXIS | 48 | deg | + + + + | QRS DURATION | 146 | ms | + + + + | QT | 445 | ms | + + + + | QTCB | 511 | ms | + + + + | R AXIS | 264 | deg | + + + + | T AXIS | 105 | deg | + + + + | ECG IMPRESSION | Sinus rhythm | | + + + + | ECG IMPRESSION | Left bundle branch block | | + + + + | ECG IMPRESSION | Prolonged QT interval- ABNORMAL ECG - | | + + + + | ECG IMPRESSION | Electronically signed by: LAURO JORGENSEN | | | | 10-12-2017 13:31:46 | | + + + + + + + | Specimen | Performing Laboratory | + + + | | [facility] [address] [place] [address] | | | [place] [address] | + + + ORDERS OTHER (10/10/2017)CARDIOLOGY (10/10/2017)CARDIOLOGY (10/10/2017)CARDIOLOGY (10/10/19)in this encounter Visit Diagnoses + + | Diagnosis | + + | NSTEMI (non-ST elevated myocardial infarction) (HCC) - Primary | + + | Acute myocardial infarction, subendocardial infarction, episode of care unspecified | + + | Coronary 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 involving [place] coronary artery of [place] heart, angina | | presence unspecified | + + | At risk for electrolyte imbalance | + + | Other specified conditions influencing health status | + + | Ischemic cardiomyopathy | + + | Other specified forms of chronic ischemic heart disease | + + | 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) | + + | Non-ST elevation (NSTEMI) myocardial infarction (HCC) | + + | Acute myocardial infarction, subendocardial infarction, episode of care unspecified | + + | Tobacco use | + + | Tobacco use disorder | + + | Hypertension, unspecified type | + + | Hypercholesterolemia | + + | Pure hypercholesterolemia | + + | Abdominal aortic aneurysm (AAA) without rupture (HCC) | + + | Stenosis of coronary artery stent, initial encounter | + + | Coronary 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 | + + | Coronary atherosclerosis of unspecified type of vessel, [place] or graft | + + | Paroxysmal atrial flutter (HCC) | + + | Atrial flutter | + + | Chronic systolic congestive heart failure (HCC) | + + | Chronic systolic heart failure | + + | Encounter for insertion of cardiac resynchronization therapy defibrillator (INLAYER-D) | + + | Influenza, pneumonia | + + | Influenza with pneumonia | + + | Prediabetes | + + | Other abnormal glucose | + + Admitting Diagnoses + + | Diagnosis | + + | CORONARY ARTERY DISEASE | + + Administered Medications + +--------+ +--------+------+------+ | Medication Order | MAR | Action | Dose | Rate | Site | | | Action | Date | | | | + +--------+ +--------+------+------+ | acetaminophen (TYLENOL) tablet | Given | | 650 mg | | | | 650 mg 650 mg, oral, EVERY 4 | | 8 08:38 | | | | | HOURS NEEDED, Starting Sat | | PST | | | | | 10/10/17 at 2101, Until 10/18/17 | | | | | | | at 0148, mild pain, headache | | | | | | + +--------+ +--------+------+------+ +-------+ +--------+---+---+ | Given | | 650 mg | | | | | 8 13:27 | | | | | | PST | | | | +-------+ +--------+---+---+ | Given | | 650 mg | | | | | 8 18:24 | | | | | | PST | | | | +-------+ +--------+---+---+ +---+---+ | | | +---+---+ + +-------+ +--------+---+---+ | amiodarone (CORDARONE) tablet | Given | 10/15/2017 | 200 mg | | | | 200 mg 200 mg, oral, DAILY, | | 08:17 | | | | | First dose on 10/11/17 at 0900, | | PST | | | | | Until Discontinued | | | | | | + +-------+ +--------+---+---+ +-------+ +--------+---+---+ | Given | 10/16/2017 | 200 mg | | | | | 08:37 | | | | | | PST | | | | +-------+ +--------+---+---+ | Given | | 200 mg | | | | | 8 08:39 | | | | | | PST | | | | +-------+ +--------+---+---+ +---+---+ | | | +---+---+ + +-------+ +-------+---+---+ | aspirin chewable tablet 81 mg | Given | 10/15/2017 | 81 mg | | | | 81 mg, oral, DAILY, First dose on | | 08:17 | | | | | 10/11/17 at 0900, Until | | PST | | | | | Discontinued | | | | | | + +-------+ +-------+---+---+ +-------+ +-------+---+---+ | Given | 10/16/2017 | 81 mg | | | | | 08:37 | | | | | | PST | | | | +-------+ +-------+---+---+ | Given | | 81 mg | | | | | 8 08:39 | | | | | | PST | | | | +-------+ +-------+---+---+ +---+---+ | | | +---+---+ + +-------+ +-------+---+---+ | atorvastatin (LIPITOR) tablet | Given | 10/15/2017 | 40 mg | | | | 40 mg 40 mg, oral, DAILY, First | | 08:17 | | | | | dose on 10/11/17 at 0900, Until | | PST | | | | | Discontinued | | | | | | + +-------+ +-------+---+---+ +-------+ +-------+---+---+ | Given | 10/16/2017 | 40 mg | | | | | 08:37 | | | | | | PST | | | | +-------+ +-------+---+---+ | Given | | 40 mg | | | | | 8 08:39 | | | | | | PST | | | | +-------+ +-------+---+---+ +---+---+ | | | +---+---+ + +-------+ +---+---+---+ | bacitracin-NS IRRIGATION | Given | 10/16/2017 | | | | | irrigation, INTRAPROCEDURE PRN, | | 16:29 | | | | | Starting Thu10/16/17 at 1629, | | PST | | | | | Until Discontinued | | | | | | + +-------+ +---+---+---+ +---+---+ | | | +---+---+ + +-------+ +------+---+---+ | bupivacaine (PF) | Given | 10/16/2017 | 4 mL | | | | (MARCAINE,SENSORCAINE-MPF) 0.25 % | | 13:11 | | | | | (2.5 mg/mL) injection | | PST | | | | | infiltration, INTRAPROCEDURE PRN, | | | | | | | Starting Thu10/16/17 at 1311, | | | | | | | Until Discontinued | | | | | | + +-------+ +------+---+---+ +---+---+ | | | +---+---+ + +-------+ + +---+---+ | carvedilol (COREG) tablet 3.125 | Given | 10/12/2017 | 3.125 mg | | | | mg 3.125 mg, oral, TWICE DAILY | | 08:36 | | | | | WITH MEALS, First dose on Sat | | PST | | | | | 10/10/17 at 2130, Until | | | | | | | Discontinued | | | | | | + +-------+ + +---+---+ +-------+ + +---+---+ | Given | 10/12/2017 | 3.125 mg | | | | | 16:35 | | | | | | PST | | | | +-------+ + +---+---+ | Given | 10/13/2017 | 3.125 mg | | | | | 08:31 | | | | | | PST | | | | +-------+ + +---+---+ +---+---+ | | | +---+---+ + +-------+ + +---+---+ | carvedilol (COREG) tablet 3.125 | Given | 10/15/2017 | 3.125 mg | | | | mg 3.125 mg, oral, TWICE DAILY | | 09:37 | | | | | WITH MEALS, First dose on Radha | | PST | | | | | 10/15/17 at 0915, Until | | | | | | | Discontinued | | | | | | + +-------+ + +---+---+ +---+---+ | | | +---+---+ + +-------+ + +---+---+ | carvedilol (COREG) tablet 3.125 | Given | 10/16/2017 | 3.125 mg | | | | mg 3.125 mg, oral, TWICE DAILY | | 08:37 | | | | | WITH MEALS, First dose on Thu | | PST | | | | | 10/16/17 at 0730, Until | | | | | | | Discontinued | | | | | | + +-------+ + +---+---+ +---+---+ | | | +---+---+ + +-------+ +---------+---+---+ | carvedilol (COREG) tablet 6.25 | Given | 10/13/2017 | 6.25 mg | | | | mg 6.25 mg, oral, TWICE DAILY | | 17:15 | | | | | WITH MEALS, First dose on Thu | | PST | | | | | 10/13/17 at 1700, Until | | | | | | | Discontinued | | | | | | + +-------+ +---------+---+---+ +-------+ +---------+---+---+ | Given | 10/14/2017 | 6.25 mg | | | | | 08:01 | | | | | | PST | | | | +-------+ +---------+---+---+ | Given | 10/14/2017 | 6.25 mg | | | | | 16:51 | | | | | | PST | | | | +-------+ +---------+---+---+ +---+---+ | | | +---+---+ + +---------+ +-----+-------+---+ | ceFAZolin IV 2 gram in dextrose | New Bag | | 2 g | 100 | | | (RTU) 2 g, intravenous, EVERY 8 | | 8 01:37 | | mL/hr | | | HOURS, 2 doses, First dose on | | PST | | | | | 10/17/17 at 0100, Last dose on | | | | | | | 10/17/17 at 0900 | | | | | | + +---------+ +-----+-------+---+ +---------+ +-----+---+---+ | New Bag | | 2 g | | | | | 8 08:57 | | | | | | PST | | | | +---------+ +-----+---+---+ +---+---+ | | | +---+---+ + +-------+ +--------+---+---+ | cefDINir (OMINCEF) capsule 300 | Given | 10/11/2017 | 300 mg | | | | mg 300 mg, oral, TWICE DAILY, 4 | | 21:33 | | | | | doses, First dose on 10/11/17 | | PST | | | | | at 0900, Last dose on 10/12/17 | | | | | | | at 2100 | | | | | | + +-------+ +--------+---+---+ +-------+ +--------+---+---+ | Given | 10/12/2017 | 300 mg | | | | | 10:07 | | | | | | PST | | | | +-------+ +--------+---+---+ | Given | 10/12/2017 | 300 mg | | | | | 20:59 | | | | | | PST | | | | +-------+ +--------+---+---+ +---+---+ | | | +---+---+ + +-------+ +--------+---+---+ | cholecalciferol (Vitamin D3) | Given | 10/15/2017 | 1,000 | | | | (VITAMIN D-3) tablet 1,000 Units | | 08:17 | Units | | | | 1,000 Units, oral, DAILY, First | | PST | | | | | dose on 10/11/17 at 0900, Until | | | | | | | Discontinued | | | | | | + +-------+ +--------+---+---+ +-------+ +--------+---+---+ | Given | 10/16/2017 | 1,000 | | | | | 08:37 | Units | | | | | PST | | | | +-------+ +--------+---+---+ | Given | | 1,000 | | | | | 8 08:40 | Units | | | | | PST | | | | +-------+ +--------+---+---+ +---+---+ | | | +---+---+ + +-------+ +--------+---+---+ | clopidogrel (PLAVIX) tablet 600 | Given | 10/14/2017 | 600 mg | | | | mg 600 mg, oral, ONCE, 1 dose, | | 17:55 | | | | | 10/14/17 at 1645 | | PST | | | | + +-------+ +--------+---+---+ +---+---+ | | | +---+---+ + +-------+ +-------+---+---+ | clopidogrel (PLAVIX) tablet 75 | Given | 10/15/2017 | 75 mg | | | | mg 75 mg, oral, DAILY, First | | 08:17 | | | | | dose on Radha 10/15/17 at 0900, Until | | PST | | | | | Discontinued | | | | | | + +-------+ +-------+---+---+ +-------+ +-------+---+---+ | Given | 10/16/2017 | 75 mg | | | | | 08:37 | | | | | | PST | | | | +-------+ +-------+---+---+ | Given | | 75 mg | | | | | 8 08:39 | | | | | | PST | | | | +-------+ +-------+---+---+ +---+---+ | | | +---+---+ + +-------+ +--------+---+---+ | fentaNYL (SUBLIMAZE) injection | Given | 10/15/2017 | 25 mcg | | | | intravenous, INTRAPROCEDURE PRN, | | 11:21 | | | | | Starting Radha 10/15/17 at 1121, | | PST | | | | | Until Discontinued | | | | | | + +-------+ +--------+---+---+ +---+---+ | | | +---+---+ + +-------+ +--------+---+---+ | fentaNYL (SUBLIMAZE) injection | Given | 10/15/2017 | 25 mcg | | | | intravenous, INTRAPROCEDURE PRN, | | 11:31 | | | | | Starting Radha 10/15/17 at 1131, | | PST | | | | | Until Discontinued | | | | | | + +-------+ +--------+---+---+ +---+---+ | | | +---+---+ + +-------+ +--------+---+---+ | fentaNYL (SUBLIMAZE) injection | Given | 10/15/2017 | 25 mcg | | | | intravenous, INTRAPROCEDURE PRN, | | 11:42 | | | | | Starting Radha 10/15/17 at 1142, | | PST | | | | | Until Discontinued | | | | | | + +-------+ +--------+---+---+ +---+---+ | | | +---+---+ + +-------+ +--------+---+---+ | fentaNYL (SUBLIMAZE) injection | Given | 10/15/2017 | 25 mcg | | | | intravenous, INTRAPROCEDURE PRN, | | 12:42 | | | | | Starting [facility] 10/15/17 at 1242, | | PST | | | | | Until Discontinued | | | | | | + +-------+ +--------+---+---+ +---+---+ | | | +---+---+ + +-------+ +--------+---+---+ | gabapentin (NEURONTIN) capsule | Given | 10/16/2017 | 300 mg | | | | 300 mg 300 mg, oral, THREE TIMES | | 21:45 | | | | | DAILY, First dose on 10/11/17 | | PST | | | | | at 1700, Until Discontinued | | | | | | + +-------+ +--------+---+---+ +-------+ +--------+---+---+ | Given | | 300 mg | | | | | 8 08:40 | | | | | | PST | | | | +-------+ +--------+---+---+ | Given | | 300 mg | | | | | 8 16:05 | | | | | | PST | | | | +-------+ +--------+---+---+ +---+---+ | | | +---+---+ + +-------+ +--------+---+---+ | heparin 1,000 unit/mL injection | Given | 10/15/2017 | 5,000 | | | | intravenous, INTRAPROCEDURE | | 11:50 | Units | | | | PRN, Starting Radha 10/15/17 at 1150, | | PST | | | | | Until Discontinued | | | | | | + +-------+ +--------+---+---+ +---+---+ | | | +---+---+ + +-------+ +--------+---+---+ | heparin 1,000 unit/mL injection | Given | 10/15/2017 | 2,000 | | | | intravenous, INTRAPROCEDURE | | 12:07 | Units | | | | PRN, Starting [facility] 10/15/17 at 1207, | | PST | | | | | Until Discontinued | | | | | | + +-------+ +--------+---+---+ +---+---+ | | | +---+---+ + +-------+ +--------+---+---+ | heparin 1,000 unit/mL injection | Given | 10/15/2017 | 1,500 | | | | intravenous, INTRAPROCEDURE | | 12:20 | Units | | | | PRN, Starting [facility] 10/15/17 at 1220, | | PST | | | | | Until Discontinued | | | | | | + +-------+ +--------+---+---+ +---+---+ | | | +---+---+ + +---------+ + + +---+ | heparin 1,000 units/500 mL (2 | New Bag | 10/16/2017 | 20 mL/hr | 20 mL/hr | | | units/mL) in NaCl 0.9 % IV | | 11:35 | | | | | solution intravenous, | | PST | | | | | INTRAPROCEDURE CONTINUOUS PRN, | | | | | | | Starting 10/16/17 at 1135, | | | | | | | Until Discontinued | | | | | | + +---------+ + + +---+ +---+---+ | | | +---+---+ + + + +--------+---+---+ | heparin bolus from continuous | Bolus | 10/10/2017 | 7,150 | | | | infusion 7,150 Units | from | 23:56 | Units | | | | intravenous, ONCE, 1 dose, Sat | Same Bag | PST | | | | | 10/10/17 at 2330 | | | | | | + + + +--------+---+---+ +---+---+ | | | +---+---+ + +---------+ + +-------+---+ | heparin in D5W 25,000 Units/250 | New Bag | 10/10/2017 | 1,350 | 13.5 | | | mL (100 Units/mL) IV infusion | | 23:53 | Units/hr | mL/hr | | | (RTU) 1-2,500 Units/hr (0.01-25 | | PST | | | | | mL/hr), intravenous, CONTINUOUS, | | | | | | | Starting 10/10/17 at 2330, | | | | | | | Until 10/11/17 at 1006 | | | | | | + +---------+ + +-------+---+ + + + +-------+---+ | Rate/Dose Verify | 10/11/2017 | 1,350 | 13.5 | | | | 07:35 | Units/hr | mL/hr | | | | PST | | | | + + + +-------+---+ +---+---+ | | | +---+---+ + + + + + +---+ | heparin in D5W 25,000 Units/250 | Rate/Dos | 10/12/2017 | 1,200 | 12 mL/hr | | | mL (100 Units/mL) IV infusion | e Verify | 06:38 | Units/hr | | | | (RTU) 1-2,500 Units/hr (0.01-25 | | PST | | | | | mL/hr), intravenous, CONTINUOUS, | | | | | | | Starting 10/11/17 at 1045, | | | | | | | Until 10/12/17 at 1209 | | | | | | + + + + + +---+ + + + + +---+ | Rate/Dose Verify | 10/12/2017 | 1,200 | 12 mL/hr | | | | 07:12 | Units/hr | | | | | PST | | | | + + + + +---+ | Rate/Dose Verify | 10/12/2017 | 1,200 | 12 mL/hr | | | | 08:28 | Units/hr | | | | | PST | | | | + + + + +---+ +---+---+ | | | +---+---+ + +-------+ +--------+---+---+ | iohexol (OMNIPAQUE) 300 mg | Given | 10/15/2017 | 110 mL | | | | iodine/mL INTRAPROCEDURE PRN, | | 13:05 | | | | | Starting [facility] 10/15/17 at 1305, | | PST | | | | | Until Discontinued | | | | | | + +-------+ +--------+---+---+ +---+---+ | | | +---+---+ + +-------+ +------+---+---+ | iohexol (OMNIPAQUE) 300 mg | Given | 10/16/2017 | 7 mL | | | | iodine/mL INTRAPROCEDURE PRN, | | 14:27 | | | | | Starting [facility] 10/16/17 at 1427, | | PST | | | | | Until Discontinued | | | | | | + +-------+ +------+---+---+ +-------+ +------+---+---+ | Given | 10/16/2017 | 5 mL | | | | | 14:28 | | | | | | PST | | | | +-------+ +------+---+---+ +---+---+ | | | +---+---+ + +-------+ +--------+---+---+ | ketorolac (ACULAR) 0.5 % | Given | | 1 drop | | | | ophthalmic drops 1 drop 1 drop, | | 8 09:30 | | | | | Left Eye, FOUR TIMES DAILY, First | | PST | | | | | dose on Thu10/14/17 at 1915, | | | | | | | Until Discontinued | | | | | | + +-------+ +--------+---+---+ +-------+ +--------+---+---+ | Given | | 1 drop | | | | | 8 13:28 | | | | | | PST | | | | +-------+ +--------+---+---+ | Given | | 1 drop | | | | | 8 18:26 | | | | | | PST | | | | +-------+ +--------+---+---+ +---+---+ | | | +---+---+ + +-------+ +------+---+---+ | lidocaine (XYLOCAINE) 10 mg/mL | Given | 10/15/2017 | 1 mL | | | | (1 %) injection infiltration, | | 11:36 | | | | | INTRAPROCEDURE PRN, Starting Radha | | PST | | | | | 10/15/17 at 1136, Until | | | | | | | Discontinued | | | | | | + +-------+ +------+---+---+ +---+---+ | | | +---+---+ + +-------+ +------+---+---+ | lidocaine (XYLOCAINE) 10 mg/mL | Given | 10/15/2017 | 6 mL | | | | (1 %) injection infiltration, | | 11:39 | | | | | INTRAPROCEDURE PRN, Starting Radha | | PST | | | | | 10/15/17 at 1139, Until | | | | | | | Discontinued | | | | | | + +-------+ +------+---+---+ +---+---+ | | | +---+---+ + +-------+ +------+---+---+ | lidocaine (XYLOCAINE) 10 mg/mL | Given | 10/15/2017 | 3 mL | | | | (1 %) injection infiltration, | | 11:50 | | | | | INTRAPROCEDURE PRN, Starting Radha | | PST | | | | | 10/15/17 at 1150, Until | | | | | | | Discontinued | | | | | | + +-------+ +------+---+---+ +---+---+ | | | +---+---+ + +-------+ +------+---+---+ | lidocaine (XYLOCAINE) 10 mg/mL | Given | 10/16/2017 | 5 mL | | | | (1 %) injection infiltration, | | 11:18 | | | | | INTRAPROCEDURE PRN, Starting Fri | | PST | | | | | 10/16/17 at 1118, Until | | | | | | | Discontinued | | | | | | + +-------+ +------+---+---+ +---+---+ | | | +---+---+ + +-------+ +------+---+---+ | lidocaine (XYLOCAINE) 10 mg/mL | Given | 10/16/2017 | 4 mL | | | | (1 %) injection infiltration, | | 13:11 | | | | | INTRAPROCEDURE PRN, Starting Fri | | PST | | | | | 10/16/17 at 1311, Until | | | | | | | Discontinued | | | | | | + +-------+ +------+---+---+ +---+---+ | | | +---+---+ + +-------+ +------+---+---+ | melatonin tablet 3 mg 3 mg, | Given | 10/14/2017 | 3 mg | | | | oral, EVERY EVENING, First dose | | 19:45 | | | | | on 10/10/17 at 2245, Until | | PST | | | | | Discontinued | | | | | | + +-------+ +------+---+---+ +-------+ +------+---+---+ | Given | 10/15/2017 | 3 mg | | | | | 21:40 | | | | | | PST | | | | +-------+ +------+---+---+ | Given | 10/16/2017 | 3 mg | | | | | 23:18 | | | | | | PST | | | | +-------+ +------+---+---+ +---+---+ | | | +---+---+ + +-------+ +-------+---+---+ | metoprolol succinate | Given | | 25 mg | | | | (TOPROL-XL) tablet 25 mg 25 mg, | | 8 09:32 | | | | | oral, DAILY, First dose on Sat | | PST | | | | | 10/17/17 at 0945, Until | | | | | | | Discontinued | | | | | | + +-------+ +-------+---+---+ +---+---+ | | | +---+---+ + +-------+ +------+---+---+ | midazolam (PF) (VERSED) | Given | 10/15/2017 | 1 mg | | | | injection INTRAPROCEDURE PRN, | | 11:21 | | | | | Starting Radha 10/15/17 at 1121, | | PST | | | | | Until Discontinued | | | | | | + +-------+ +------+---+---+ +---+---+ | | | +---+---+ + +-------+ +------+---+---+ | midazolam (PF) (VERSED) | Given | 10/15/2017 | 1 mg | | | | injection INTRAPROCEDURE PRN, | | 11:35 | | | | | Starting Radha 10/15/17 at 1135, | | PST | | | | | Until Discontinued | | | | | | + +-------+ +------+---+---+ +---+---+ | | | +---+---+ + +-------+ +------+---+---+ | midazolam (PF) (VERSED) | Given | 10/15/2017 | 1 mg | | | | injection INTRAPROCEDURE PRN, | | 12:44 | | | | | Starting Radha 10/15/17 at 1244, | | PST | | | | | Until Discontinued | | | | | | + +-------+ +------+---+---+ +---+---+ | | | +---+---+ + +-------+ +--------+---+---+ | ofloxacin (OCUFLOX) 0.3 % | Given | | 1 drop | | | | ophthalmic drops 1 drop 1 drop, | | 8 09:34 | | | | | Left Eye, FOUR TIMES DAILY, First | | PST | | | | | dose on Thu10/14/17 at 1915, | | | | | | | Until Discontinued | | | | | | + +-------+ +--------+---+---+ +-------+ +--------+---+---+ | Given | | 1 drop | | | | | 8 13:29 | | | | | | PST | | | | +-------+ +--------+---+---+ | Given | | 1 drop | | | | | 8 18:27 | | | | | | PST | | | | +-------+ +--------+---+---+ +---+---+ | | | +---+---+ + +-------+ +-------+---+---+ | oxyCODONE (immediate release) | Given | 10/16/2017 | 10 mg | | | | (ROXICODONE) tablet 5-10 mg 5-10 | | 04:16 | | | | | mg, oral, EVERY 6 HOURS | | PST | | | | | NEEDED, Starting 10/10/17 at | | | | | | | 2102, Until 10/16/17 at 1959, | | | | | | | severe pain | | | | | | + +-------+ +-------+---+---+ +-------+ +-------+---+---+ | Given | 10/16/2017 | 10 mg | | | | | 10:20 | | | | | | PST | | | | +-------+ +-------+---+---+ | Given | 10/16/2017 | 10 mg | | | | | 17:55 | | | | | | PST | | | | +-------+ +-------+---+---+ +---+---+ | | | +---+---+ + +-------+ +-------+---+---+ | oxyCODONE (immediate release) | Given | 2/10/201 | 10 mg | | | | (ROXICODONE) tablet 5-10 mg 5-10 | | 8 08:38 | | | | | mg, oral, EVERY 4 HOURS | | PST | | | | | NEEDED, Starting 10/16/17 at | | | | | | | 2000, Until 10/18/17 at 0148, | | | | | | | severe pain | | | | | | + +-------+ +-------+---+---+ +-------+ +-------+---+---+ | Given | | 10 mg | | | | | 8 13:27 | | | | | | PST | | | | +-------+ +-------+---+---+ | Given | | 10 mg | | | | | 8 18:25 | | | | | | PST | | | | +-------+ +-------+---+---+ +---+---+ | | | +---+---+ + +-------+ +-------+---+---+ | pantoprazole (PROTONIX) tablet | Given | 10/16/2017 | 40 mg | | | | 40 mg 40 mg, oral, TWICE DAILY, | | 08:37 | | | | | First dose on 10/10/17 at 2145, | | PST | | | | | Until Discontinued | | | | | | + +-------+ +-------+---+---+ +-------+ +-------+---+---+ | Given | 10/16/2017 | 40 mg | | | | | 21:45 | | | | | | PST | | | | +-------+ +-------+---+---+ | Given | | 40 mg | | | | | 8 08:39 | | | | | | PST | | | | +-------+ +-------+---+---+ +---+---+ | | | +---+---+ + +---------+ +--------+---+---+ | perflutren lipid microspheres | IV Push | 10/11/2017 | 1.5 mL | | | | (DEFINITY) injection 1.5 mL 1.5 | | 12:14 | | | | | mL, intravenous, PROCEDURE ONCE, | | PST | | | | | 1 dose, 10/11/17 at 1215 | | | | | | + +---------+ +--------+---+---+ +---+---+ | | | +---+---+ + +-------+ +------+---+---+ | polyethylene glycol (MIRALAX) | Given | 10/12/2017 | 17 g | | | | packet 17 g 17 g, oral, TWICE | | 10:06 | | | | | DAILY, First dose on 10/10/17 | | PST | | | | | at 2300, Until Discontinued | | | | | | + +-------+ +------+---+---+ +---+---+ | | | +---+---+ + +-------+ +--------+---+---+ | potassium chloride SR (K-DUR) | Given | 10/12/2017 | 20 mEq | | | | tablet 20 mEq 20 mEq, oral, | | 16:35 | | | | | ONCE, 1 dose, 10/12/17 at 1700 | | PST | | | | + +-------+ +--------+---+---+ +---+---+ | | | +---+---+ + +-------+ +--------+---+---+ | potassium chloride SR (K-DUR) | Given | 10/11/2017 | 40 mEq | | | | tablet 40 mEq 40 mEq, oral, | | 08:37 | | | | | ONCE, 1 dose, 10/11/17 at 0845 | | PST | | | | + +-------+ +--------+---+---+ +---+---+ | | | +---+---+ + +-------+ +--------+---+---+ | prednisoLONE acetate (PRED | Given | | 1 drop | | | | FORTE) 1 % ophthalmic drops, | | 8 09:35 | | | | | suspension 1 drop 1 drop, Left | | PST | | | | | Eye, FOUR TIMES DAILY, First dose | | | | | | | on 10/14/17 at 1915, Until | | | | | | | Discontinued | | | | | | + +-------+ +--------+---+---+ +-------+ +--------+---+---+ | Given | | 1 drop | | | | | 8 13:29 | | | | | | PST | | | | +-------+ +--------+---+---+ | Given | | 1 drop | | | | | 8 18:28 | | | | | | PST | | | | +-------+ +--------+---+---+ +---+---+ | | | +---+---+ + +-------+ +---------+---+---+ | senna-docusate (SENOKOT S) | Given | 10/14/2017 | 4 | | | | 8.6-50 mg 4 tablet 4 tablet, | | 09:44 | tablets | | | | oral, TWICE DAILY, First dose on | | PST | | | | | 10/10/17 at 2300, Until | | | | | | | Discontinued | | | | | | + +-------+ +---------+---+---+ +-------+ +---------+---+---+ | Given | 10/14/2017 | 4 | | | | | 19:45 | tablets | | | | | PST | | | | +-------+ +---------+---+---+ | Given | 10/16/2017 | 2 | | | | | 21:45 | tablets | | | | | PST | | | | +-------+ +---------+---+---+ +---+---+ | | | +---+---+ + +---------+ +--------+ +---+ | sodium chloride 0.9% IV | New Bag | 10/15/2017 | 500 mL | 75 mL/hr | | | infusion INTRAPROCEDURE | | 11:21 | | | | | CONTINUOUS PRN, Starting Radha | | PST | | | | | 10/15/17 at 1121, Until | | | | | | | Discontinued | | | | | | + +---------+ +--------+ +---+ +---+---+ | | | +---+---+ + +---------+ +--------+ +---+ | sodium chloride 0.9% IV | New Bag | 10/15/2017 | 500 mL | 20 mL/hr | | | infusion INTRAPROCEDURE | | 12:01 | | | | | CONTINUOUS PRN, Starting Radha | | PST | | | | | 10/15/17 at 1201, Until | | | | | | | Discontinued | | | | | | + +---------+ +--------+ +---+ +---+---+ | | | +---+---+ + + + + +--------+---+ | tirofiban (AGGRASTAT) 12.5 | Rate/Dos | 10/13/2017 | 0.15 | 16.06 | | | mg/250 mL (0.05 mg/mL) IV | e Verify | 19:23 | mcg/kg/m | mL/hr | | | infusion 0.15 mcg/kg/min | | PST | in | | | | 89.2 kg (16.056 mL/hr, rounded | | | | | | | to 16.06 mL/hr), intravenous, | | | | | | | CONTINUOUS, Starting 10/11/17 | | | | | | | at 0900, Until 10/14/17 at 1600 | | | | | | + + + + +--------+---+ + + + +--------+---+ | Rate/Dose Verify | 10/13/2017 | 0.15 | 16.06 | | | | 23:43 | mcg/kg/m | mL/hr | | | | PST | in | | | + + + +--------+---+ | Rate/Dose Verify | 10/14/2017 | 0.15 | 16.06 | | | | 04:05 | mcg/kg/m | mL/hr | | | | PST | in | | | + + + +--------+---+ +---+---+ | | | +---+---+ + + + +--------+---+---+ | tirofiban bolus from continuous | Bolus | 10/11/2017 | 2,250 | | | | infusion (AGGRASTAT) 2,250 mcg | from | 08:58 | mcg | | | | 2,250 mcg (rounded from 2,230 mcg | Same Bag | PST | | | | | = 25 mcg/kg | | | | | | | 89.2 kg), intravenous, ONCE, 1 | | | | | | | dose, 10/11/17 at 0900 | | | | | | + + + +--------+---+---+ +---+---+ | | | +---+---+ in this encounter
--- OUTSIDE RECORDS SUMMARY | ~2017-12-04 | XMS | Encounter Summary ---
Demographics + + + | Address | [address] | | | [place] [address] | + + + | Home Phone | | + + + | Preferred Language | Unknown | + + + | Marital Status | | + + + | Mormonism Affiliation | NRP | + + + | Race | White | + + + | Ethnic Group | Not or | + + + Author + + + | Author | [facility] | + + + | Organization | [facility] | + + + | Address | Unknown | + + + | Phone | Unavailable | + + + Support + + + + + | Name | Relationship | Address | Phone | + + + + + | ANNA MCKEON | ECON | [address] | | | | | [place] [address] | | + + + + + Care Team Providers + +------+ + | Care Sofa Cover Inspector Name | Role | Phone | + +------+ + | Chato Matson MD | PCP | | + +------+ + Encounter Details +--------+ + + + + | Date | Type | Department | Care Team | Description | +--------+ + + + + | 10/11/ | Procedure | [facility] [id number] | | | | 2017 | Pass | [address] | | | | | | [address] [facility] | | | | | | [place], [place] | | | | | | [address] | | | | | | [phone] | | | +--------+ + + + [...]
--- OUTSIDE RECORDS SUMMARY | ~2017-12-04 | XMS | Encounter Summary ---
Demographics + + + | Address | [address] | | | [place] [address] | + + + | Home Phone | | + + + | Preferred Language | Unknown | + + + | Marital Status | | + + + | Anglican Affiliation | NRP | + + + | Race | White | + + + | Ethnic Group | Not or | + + + Author + + + | Author | [facility] | + + + | Organization | [facility] | + + + | Address | Unknown | + + + | Phone | Unavailable | + + + Support + + + + + | Name | Relationship | Address | Phone | + + + + + | VENICE MCKEON | ECON | [address] | | | | | [place] [address] | | + + + + + Care Team Providers + +------+ + | Care Winery Worker Name | Role | Phone | [...] + | 10/16/ | Anesthesia | Cardiac Alumina Refinery Operator | Terry Garvin, | | | 2018 | | at [facility] [address] [facility] | [facility] [address] [facility] | | | | | [facility] | [facility] | | | | | [facility] | [place], [place] | | | | | [place], [place] | [address] | | | | | [address] | [phone] | | | | | [phone] | | | +--------+ + + + [...] | | | | (groin access for slab puller) | RN | | +--------+ + + [...]
--- OUTSIDE RECORDS SUMMARY | ~2017-12-04 | XMS | Encounter Summary ---
Demographics + + + | Address | [address] | | | [place] [address] | + + + | Home Phone | | + + + | Preferred Language | Unknown | + + + | Marital Status | | + + + | Samaritan Affiliation | NRP | + + + | Race | White | + + + | Ethnic Group | Not or | + + + Author + + + | Author | [facility] | + + + | Organization | [facility] | + + + | Address | Unknown | + + + | Phone | Unavailable | + + + Support + + + + + | Name | Relationship | Address | Phone | + + + + + | ANNA MCKEON | ECON | [address] | | | | | [place] [address] | | + + + + + Care Team Providers + +------+ + | Care Gear And Spline Grinder Name | Role | Phone | + [...] | 2018 | Encounter | Services at [facility] | | | | | | [address] | | | | | | [facility] | | | | | | Mailcode: [id number] | | | | | | [facility] | | | | | | [place], [place] | | | | | | [address] | | | | | | [phone] | | | +--------+ + + + [...]
--- OUTSIDE RECORDS SUMMARY | ~2017-12-04 | XMS | Encounter Summary ---
Demographics + + + | Address | [address] | | | [place] [address] | + + + | Home Phone [...] | | | | | [place] [address] | | + + + + + Care Team Providers + +------+ + | Care Social Worker Aide Name | Role | Phone | [...] | | 2018 | | Services at [facility] | [place], [place] | Exam | | | | [address] | [address] | | | | | [facility] | | | | | | Mailcode: [id number] | | | | | | [facility] | | | | | | [place], [place] | | | | | | [address] | | | | | | [phone] | | | +--------+ + + + [...]
--- OUTSIDE RECORDS SUMMARY | ~2017-12-04 | XMS | Clinical Summary ---
Demographics + + + | Address | [address] [place] [address] [address] | | | [place] [address] | + + + | Home Phone [...] | | | | | [place] [address] | | + + + + + Care Team Providers + +------+ + | Care Assembly Person Name | Role | Phone | + +------+ + | Chato Matson MD | PP | | + +------+ + Source Comments EULOGIO is fully live on both [facility] Amb[facility] and [facility] InPatient.[facility] Allergies No Known Allergies Current Medications [...] resynchronization therapy | 10/17/2017 | | defibrillator (CULLET CRUSHER AND WASHER-D) | | + + + | Influenza, [...] edema. 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 | | -secretions improving, cough strong [...] stayExtubated 03/22, started on | | NC B8Yadbl infusion begun 03/22 for daily goal -1 [...] during cath | | lab procedure at [facility]. Was shocked 17 times | | Targeted [...] | | 2018 | Event | | HEAD OF GLOBAL STRATEGIC PARTNERSHIPS | | +--------+ + + + + [...] | | | or | | | (CULLET CRUSHER AND WASHER-D)8) | | | Paroxysmal | | | atrial | | | flutter | | | (HCC)9) | | | Influenza, | | | [id number] | | | ) | | | [...] | | induction | | | 2) CULLET CRUSHER AND WASHER-D | | | implantatio | | | [...] | | course at | | | [place] | | | prior to | | [...] | | therefore a | | | CULLET CRUSHER AND WASHER-D was | | | implanted. | | [...] | and thus a | | | CULLET CRUSHER AND WASHER-D was | | | placed. | | [...] | | EP 2/9, | | | CULLET CRUSHER AND WASHER-D | | | -- | | | [...] | be noted on | | | CULLET CRUSHER AND WASHER-D and | | | could | | [...] | on. EGD at | | | [place] | | | on 10/05 | | [...] | | # Pre | | | [id number] | | | 5.6 on | | [...] | Wound check | | | from CULLET CRUSHER AND WASHER-D | | | | | | placement2. [...] | | | Hansa | | | H[place], | | | ACNP. Go | | [...] | | | CLINICS | | | [id number] | | | [address] | | | [address] | | | [place] | | | [phone] | | | [phone] | | | Hansa | | | Hancock, | | | ACNP. Go | | [...] | | | CLINICS | | | [id number] | | | [address] | | | [address] | | | [place] | | | [phone] | | | [phone] | | | [...] | | 25 mg | | | [id number] | | | y known as: | [...] | CR 30 mg | | | [id number] | | | y known as: | [...] | | mm Resolute | | | Elliott | | | drug-elutin | | | [...] | | | us:Phone: | | | [phone] | | | 0 | | | Cardiology | | | Division | | | Office | | | | | | [phone] | | | 0 | | | [...] | | | lar | | | [place] | | | [place] | | | Health & | | [...] | | | HANDY | | | [id number] | | Tejal Pettit MD | | | | | | X / | | | | | | | | /[id number] | | | | | | | | [id number] | + +------+--------+ +--------+--------+--------+ Results CAPILLARY BLOOD [...] TESTS [address] | | | [place] [address] | + + + X-RAY CHEST 2 [...] Note | + + | Service Account, [employer] In Interface - 10/17/2017 7:51 AM [...] | + + + | Blood | [facility] SERVICES, CORE [address] [place] [address] | | | [place] [address] | + + + BASIC METABOLIC SET [...] | >60 | >60 mL/min | | [place]TH [place]OREAN | | | + + + + | EGFR NON | 51 (L) | >60 mL/min | | -[place]TH [place]OREAN | | | + + + + [...] | + + + | Blood | [facility], CORE [address] | | | [place], [place] [address] | + + + + + | [...] | | ------ CBC (HEMOGRAM) | | ONLY[[id number]] Abnormal Final | | result Please view [...] Note | + + | Service Account, [employer] In Interface - 10/17/2017 7:51 AM [...] procedure. | | He is candidate for CULLET CRUSHER AND WASHER-D since he as class 2 baseline heart failure and currently | | class 3 heart failure with LBBB 152 msec. PROCEDURE ATTENDING: Sophie Darby | | FELLOW: Amarilis Castle MD PROCEDURAL | | DATA: Procedure: New implant Implanted generator correspondence specialist: Medtronic | | Implanted leads correspondence specialist: Medtronic Radha-procedure Anticoag: None Presenting | | rhythm: NSR Existing device under advisory? No Pacemaker dependent: No | | Method of sedation: Conscious sedation - Anesth provider Response to | | sedation: Normal Fluoroscopy time (see log): 45-47 minutes | | MEDICATIONS: See anesthesia log and chemical processing laborer log INTAKE AND OUTPUT: 1000 ml [...] DEVICE INFORMATION: | | BiV-ICD pulse generator: Director Business Development: Medtronic Model number: [id number] | | Serial number: [id number] RA lead: Director Business Development: [employer] Model number: | | 5076-52 Serial number: [id number] RV lead: Director Business Development: [employer]tronic | | Model number: [id number] Serial number: [id number] CS lead: | | Director Business Development: [employer] Model number: [id number] Serial number: [id number] | | MEASURED PARAMETERS: RA lead: P [...] | | Fellow Division of Cardiovascular Medicine [facility] | | Pager [phone] Pursuant to Federal Medicare requirements, I certify that I, Sophie | | Wilner BREWER, was present for the entire procedure, performed all critical elements, and | | participated directly in the generation of this report. Sophie Darby MD | | Cardiovascular Medicine - Electrophysiology [facility] Cardiovascular [place] at [facility] | | | + + [...] | | [facility] TESTS [address] | | | [place] [address] | + + + INTRAPROCEDURE IMAGING (10/16/2017 [...] Laboratory | + + + | | [facility] [address] [place] [address] | | | [place] [address] | + + + CARDIAC CATH (10/15/2017 2:11 PM) + + | Procedure Note | + + | Tejal Modi MD - 10/15/2017 2:11 PM PST DATE OF PROCEDURE:October 15, | | 2018PERFORMING PHYSICIAN:Tejal Modi [facility] ATTENDING:Mike Bray MDThere was no | [...] 110 mL.FLUOROSCOPY TIME:17.8 minutes.FLUOROSCOPY | | DAP:7406.0 lMyvs5FMKMRHJGDHCG:1. Left ventricular pressure 91/23 mmHg.2. Aortic | | pressure 93/72 mmHg, mean of 80 mmHg. 3. Heart rate 71 beats per minute.ACCESS:1. | | 14-Kenyan Impella sheath in the right femoral artery.2. 7-Kenyan sheath in the left | | femoral artery.3. 6-Kenyan sheath in the right femoral vein.ESTIMATED BLOOD [...] | micropuncture technique and ultrasound guidance, a 5-Kenyan sheath was inserted in the | | right femoral artery and a 6-Kenyan sheath was inserted in the right femoral vein. Two | | Perclose devices were deployed in the preclosure method and then the 5-Kenyan sheath was | | exchanged over an Amplatz stiff wire for the 14-Kenyan Impella sheath. A 5-Kenyan | | angled pigtail catheter was then [...] technique and ultrasound guidance and placed a 7-Kenyan sheath. A 7-Kenyan XB 3.5 guide | | catheter was [...] and pulled out of the body. The 14-Kenyan sheath was | | then removed and [...] with one 3.0 x 18 mm Resolute Elliott drug-eluting stent. Successful | | percutaneous coronary [...] | | 10/15/2017 13:25:02DT: 10/15/2017 14:11:10Job #: [id number] | |2. Lesion type: C. | |3. [...] with one 3.0 x 18 mm Resolute Elliott drug-eluting stent. Successful percutaneous coronary transluminal angio [...] |BCN/MODL | | | | | | /[id number] | + + ACT, POC-CCL ONLY (10/15/2017 [...] [address] | | | [place] [address] | + + + RECREATIONAL PROGRAMS DIRECTOR EMERGENT/IMMEDIATE PROCEDURE (10/15/2017 11:00 AM) + + | Narrative | + + | Procedure performed in the Cardiac Discharge Specialist. See procedure notes for details. | + [...] | + + + | Blood | [facility], CORE [address] | | | [place], [place] [address] | + + + + + | [...] Laboratory | + + + | | [facility] RADIOLOGY VOICE RECOGNITION | + [...] | | significant tracer uptake within the tef-oc-qabvno anterior wall/interventricular septum | | and apex [...] Note | + + | Service Account, [employer] In Interface - 10/14/2017 5:47 PM [...] significant tracer | | uptake within the fxl-xi-vmkorn anterior wall/interventricular septum and apex | | corresponding to same non-perfused areas seen on myocardial rest perfusion scan, | | compatible with nonviable myocardium in these regions. I have personally reviewed the | | images and, if necessary, edited the report. I agree with the report as now presented. | |No significant tracer uptake within the kvr-rt-uothgt anterior wall/interventricular septum and apex corresponding to [...] Laboratory | + + + | | [facility] RADIOLOGY VOICE RECOGNITION | + + + [...] Note | + + | Service Account, [employer] In Interface - 10/13/2017 5:30 PM [...] | + + + | Blood | [facility], CORE [address] | | | [place] [address] | + + + + + | [...] Narrative | + + | Report ====== Rail Assembler: Rodríguez Fortune ([id number]), shubham lockhart Jewel Sorter: shubham | | richy Fellow: shubham lockhart Gas Distribution Plant Operator: shubham lockhart Viewer: shubham | | richy Report Date: 16 Oct 2017, 09:22:25 [facility] Patient ------- Patient: | | RON MCKEON Acc #: [id number] | | Ethnicity: N Status: Final Report [...] Formula) | | Image Quality: Good Scanner Director Business Development: [employer] Scanner Model: Cryptmint | | Scanner Serial Number: [id number] Scanner Software Platform: 5.3.15.3.1.0 Staff: Rodríguez | | Tong Modality: MR Indication Name: routine Protocol Name: CMR W Flows WO Contrast | | Findings -------- Non-cardiac findings were reviewed by Dr. Curtsi. This exam was | | terminated prematurely and is lmiited to studio sales associate images. There are bilateral pleural | | [...] - 10/16/2017 9:22 AM PST | | Report======Rail Assembler: Rodríguez Tong ([id number]), shubham Rodriguezalyst: shubham | | richyFellow: shubham Garciaechnician: shubham Johniewer: shubham | | jadarkomReport Date: 16 Oct 2017, 09:22:25 PSTPatient-------Patient: RON MCKEON | | JMedical Record Number: [id number] ID: [id number] #: [id number]: NStatus: | | Final ReportReport Number: [id number]: MaleBirthdate: 1955 (61 yrs)Study Date: 05 | | Oct 2017Study Description: CMR with Flows with ContrastReferring Physician: KHURRAM | | HEITNERBlood Pressure: /Heart rate:Height (cm): 0Weight (kg): 89BMI (kg/m ): 0BSA | | (m ): 0 (Mosteller Formula)Image Quality: Targeted TechnologiescanRome2rio Director Business Development: Handseeing Information | | Ivaldi Model: ZeroVM Serial Number: [id number] Software Platform: | | 5.3.15.3.1.0Staff: Rodríguez FortuneModality: MRIndication Name: routineProtocol Name: | | CMR W Flows WO ContrastFindings--------Non-cardiac findings were reviewed by | | Fusmoon.This exam was terminated prematurely and is lmiited to studio sales associate images.There are | | bilateral pleural effusions. [...] Formula) | |Image Quality: Good | |Scanner Director Business Development: [employer] | |Scanner Model: Cryptmint | |Scanner Serial Number: [id number] | |Scanner Software Platform: 5.3.15.3.1.0 | |Staff: Rodríguez Fortune | |Modality: MR | |Indication Name: routine | |Protocol Name: CMR W Flows WO Contrast | |Findings | |-------- | |Non-cardiac findings were reviewed by Dr. Curtis. | |This exam was terminated prematurely and is lmiited to studio sales associate images. | |There are bilateral pleural effusions. [...] | + + + | Sputum | [facility] [address] [address] [place], [place] | | | [address] | + + + + + | Narrative | + + | Culture Report: This culture has been discontinued. Gram Stain: Squamous | | epithelial cells in the specimen indicate the presence of significant oropharyngeal | | contamination. CRITICAL RESULTS Results called to and verified by: Vicki | | Amy at phone # [facility] on: 10/12/2017 8:10:02 AM PST by: [id number] | + + HEMOGLOBIN A1C, BLOOD (10/11/2017 [...] | + + + | Blood | [facility] IMM + COAG [address] | | | [place] [address] | + + + + + | Narrative | + + | Alternate forms of testing such as fructosamine should be considered for | | monitoring 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 glycemic control in patients with: Increased red cell turnover, | | certain hemoglobinopathies (e.g., HbS, HbE, HbC and thalassemia syndromes), anemias, | | blood loss, chronic liver disease and hemochromatosis (artefactually low HbA1c); iron | | deficiency anemia (artefactually high HbA1c due to enhanced glycation of hemoglobin). | | Alternate forms of testing such as fructosamine should be considered for | | monitoring 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 manager glycemic control in patients with: Increased red [...] Laboratory | + + + | | [facility] [address] [place] [address] | | | [place] [address] | + + + + + | Narrative | + + | [facility] Adult Echocardiography Laboratory | | [address] [place], [place] [address] Ph: | | Pt Name: RON MCKEON Study | | Date/Time 10/11/2017 / 11:47:35 AM | | Most recent prior: 03/30/2017 Acc #: [id number] No. previous | | echos: 4 : 1955 61 years Heart Rate: 84 bpm | | Height: 69.0 in Blood Pressure: 115/68 mm/Hg | | Weight: 196.0 lb Gender: M | | BSA: 2.05 m2 Order ID: [id number] | | Cloud Engineer: Shahab Sutton [facility] Referring Provider: Kimmy Low Patient | [...] use disorder who presents on transfer from [place] for consideration of | | complex PCI [...] | Wall Scoring: Report electronically signed by: [id number] Khurram Bedoya MD | | (10/11/2017, 12:59:49 PM) Final (Updated) | + + + + | Procedure Note | + + | Interface, Ecg Results - 10/11/2017 1:00 PM [facility] | | [facility] Echocardiography Laboratory [address] [place] [address] | | [place], [place] [address] Pt Name: RON Chaudhary | | MIKE Study Date/Time 10/11/2017 / 11:47:35 AMMRN: [id number] Most | | recent prior: 03/30/2017Acc #: [id number] No. previous echos: 4DOB: | | 1955 61 years Heart Rate: 84 bpmHeight: 69.0 in Blood | | Pressure: 115/68 mm/HgWeight: 196.0 lb Gender: MBSA: | | 2.05 m2 Order ID: [id number] Cloud Engineer: Shahab Sutton RDCSReferring | | Provider: Kimmy [...] use disorder who presents on transfer from [place] | | for consideration of complex PCI [...] Ao (prox) | | 3.70 cm 18.1 mm/n9Mlxgubceyd of chamber size and geometry is accomplished | | through the incorporation of linear, volumetric, and indexed values Wall Scoring: Report | | electronically signed by: [id number] Khurram Bedoya MD (10/11/2017, 12:59:49 PM) | [...] | | | |Report electronically signed by: [id number] Khurram Bedoya MD (10/11/2017, 12:59:49 | |PM) [...] | + + + | Blood | [facility], CORE [address] | | | [place] [address] | + + + + + | [...] | >60 | >60 mL/min | | [place]ORE[place] | | | + +---------+ + | EGFR NON | >60 | >60 mL/min | | -[place]ORE[place] | | | + +---------+ + | [...] | + + + | Blood | [facility], CORE [address] | | | [place] [address] | + + + + + | [...] | + + + | Blood | [facility], CORE [address] | | | [place] [address] | + + + + + | [...]
--- OUTSIDE RECORDS SUMMARY | ~2017-12-04 | XMS | Encounter Summary ---
Demographics + + + | Address | [address] | | | [place] [address] | + + + | Home Phone [...] | | | | | [place] [address] | | + + + + + Care Team Providers + +------+ + | Care Glass Production Machine Operator Name | Role | Phone [...] + | 10/16/ | Anesthesia | Cardiac Harvest Worker Field Crop | Terry Garvin, | | | 2018 | | at [facility] [address] [facility] | [facility] [address] | | | | | [facility] | [facility] | | | | | [facility] | [place], [place] | | | | | [place], [place] | [address] | | | | | [address] | [phone] | | | | | [phone] | | | +--------+ + + + [...] | | | | (groin access for cytology laboratory manager) | RN | | +--------+ [...] Keeley Izaguirre, | Keeley Izaguirre, | | adnrea | 10/16/17; 1208; Per protocol | RN | RN | | Single | | | | | Lumen | | | | +--------+ + + + | Sheath | 10/16/17; 1135; MD Tin; Right; | 10/16/17 1135 by | 10/16/17 1208 by | | /Intro | Groin; 7 Fr.; Femoral; Venous; | Keeley Izaguirre, | Keeley Izaguirre, | Arina mendze | 10/16/17; 1208; Per protocol | RN [...]
--- OUTSIDE RECORDS SUMMARY | ~2017-12-04 | XMS | Encounter Summary ---
Demographics + + + | Address | [address] | | | [place] [address] | + + + | Home Phone [...] + + + | Author | [facility] | + + + | Organization | [facility] | + + + | Address | Unknown | + + + | Phone | Unavailable | + + + Support + + + + + | Name | Relationship | Address | Phone | + + + + + | ANNA MCKEON | ECON | [address] | | | | | [place] [address] | | + + + + + Care Team Providers + +------+ + | Care Rn Telephone Triage Name | Role | Phone | + [...] Pharmacy | | | | | | [address] | | | | | | [facility] | | | | | | [place], [place] | | | | | | [address] | | | +--------+ + + + [...]
--- OUTSIDE RECORDS SUMMARY | ~2017-12-04 | XMS | Encounter Summary ---
Demographics + + + | Address | [address] | | | [place] [address] | + + + | Home Phone [...] | | | | | [place] [address] | | + + + + + Care Team Providers + +------+ + | Care Viscera Washer Name | Role | Phone | + [...] | 2018 | Encounter | Services at [facility] | | | | | | [address] [facility] | | | | | | [facility] | | | | | | Mailcode: L[address] | | | | | | [facility] | | | | | | [place], [place] | | | | | | [address] | | | | | | [phone] | | | +--------+ + + + [...]
--- OUTSIDE RECORDS SUMMARY | ~2017-12-04 | XMS | Encounter Summary ---
Demographics + + + | Address | [address] | | | [place] [address] | + + + | Home Phone [...] | | | | | [place] [address] | | + + + + + Care Team Providers + +------+ + | Care Vehicle Assembly Inspector Name | Role | Phone | [...] Pharmacy | | | | | | [address] | | | | | | [facility] | | | | | | [place], [place] | | | | | | [address] | | | +--------+ + + + [...]
--- OUTSIDE RECORDS SUMMARY | ~2017-12-04 | XMS | Encounter Summary ---
Demographics + + + | Address | [address] | | | [place] [address] | + + + | Home Phone | | + + + | Preferred Language | Unknown | + + + | Marital Status | | + + + | Muslim Affiliation | NRP | + + + | Race | White | + + + | Ethnic Group | Not or | + + + Author + + + | Author | [facility] | + + + | Organization | [facility] | + + + | Address | Unknown | + + + | Phone | Unavailable | + + + Support + + + + + | Name | Relationship | Address | Phone | + + + + + | ANNA MCKEON | ECON | [address] | | | | | [place] [address] | | + + + + + Care Team Providers + +------+ + | Care Helper Coordinator Name | Role | Phone | [...] Pharmacy | | | | | | [address] | | | | | | [facility] | | | | | | [place], [place] | | | | | | [address] | | | +--------+ + + + [...]
--- OUTSIDE RECORDS SUMMARY | ~2017-12-04 | XMS | Encounter Summary ---
Demographics + + + | Address | [address] | | | [place] [address] | + + + | Home Phone | | + + + | Preferred Language | Unknown | + + + | Marital Status | | + + + | Temple Affiliation | NRP | + + + [...] | | | | | [place] [address] | | + + + + + Care Team Providers + +------+ + | Care Puncher Name | Role | Phone | [...] | | | | | (HCC) | [place], [place] | for Health | | | | | Stenosis of | [address] | and Healing | | | | | coronary | Phone: | [place], [place] | | | | | artery | [phone] | [phone] | | | | | stent, | Fax: | Phone: | | | | | initial | [phone] | [phone] | | | | | encounter | | Fax: | | | | | Procedures | | [phone] | | | | | CONSULT TO [...] + + | 10/10/ | Hospital | [address] | Khurram Bedoya | | | 2018 - | Encounter | [address] | MD [address] | | | | | [address] [place] [address] | [address] | | | 10/17/ | | [place], [place] | [place], [place] | | | 2018 | | [address] | [address] | | | | | [phone] | [phone] | | | | | | | [...] Referring Physician & Institution: Other Dictation Primary/Outpatient Community Development Manager: Dr Jamal Guerrero MD Inpatient Attending Physician: Khurram Bedoya MD Author/Discharging Provider: LALA SCHOFIELD PA-C Admission Date: 10/10/2017 Discharge Date: 10/17/2017 Active Hospital Problems 1) *NSTEMI (non-ST elevated myocardial infarction) (HCC) 2) Coronary 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 3) Stenosis of coronary artery stent 4) Ischemic cardiomyopathy 5) Chronic systolic congestive heart failure (HCC) 7) Encounter for insertion of cardiac resynchronization therapy defibrillator (SAP SPECIALIST-D) 8) Paroxysmal atrial flutter (HCC) 9) Influenza, [...] 1) EP study with VT induction 2) SAP SPECIALIST-D implantation Reason For Admission: Consideration of complex PCI vs CABG for in-stent restenosis of LCx and LM/LAD stents Hospital Course: Please see H&P for hospital course at [facility] prior to transfer to [facility]. Ron Mckeon is a 61 [...] treatment who was admitted in transfer from [facility] on 10/11 for consideration of PCI vs [...] support--had one 3.0 x [address] ug-eluting stent placed in ostial L [...] 10/16. VT was induced, therefor e a SAP SPECIALIST-D was implanted. He is discharging home in good condition with follow up in 1 week w ith his Community Development Manager. The following problems were addressed this hospitalization: [...] uenza and underwent a coronary angiogram at [facility] which revealed in stent re-stenosis of both LM into LAD and LCx stents, mild disease of RCA. Transferred to [facility] for further onel luation. CTS was consulted for consideration of CABG vs complex PCI. Due to nonviable myocardium archie wn on cardiac PET and resting NM perfusion study, PCI was chosen over CABG. On 10/15 he underw ent angiography/PCI with impella support--had one 3.0 x 18 mm Resolute Diablo drug-eluting chery nt placed in ostial L [...] II, Stage C. Etiology ischemic. TTE at [facility] showed EF 30-35%, mildly reduced [...] the past --ICD: placed by EP 10/16, SAP SPECIALIST-D -- will need 1 week f/u for wound check, then 1 month device check with EP -- f/u with outpatient editor department 2-4 weeks # Paroxysmal Aflutter Noted Aflutter with RVR at admission in [place]; treated with amiodarone infusion. He w as transitioned to oral amiodarone and maintained normal rhythm. Given that the aflutter occ urred in setting of severe sepsis, will not continue amiodarone or warfarin. If he has recur rent arrhythmia, this will be noted on SAP SPECIALIST-D and could consider anticoagulation at that time . However, he requires DAPT and has a possible history of recent GIB, so triple therapy shou ld be avoided if not necessary --rate control: metoprolol as above --anticoagulation: holding warfarin for now given DAPT and h/o GI B. Discuss further with outpatient editor department. May consider holding anticoagulation unless he demonstrates recurrent arrhythmia # Influenza type A - resolved # Community acquired pneumonia # Severe sepsis with shock, resolved Pt presented to [facility] 10/03 found to be Flu Apositive with [...] sepsis management , fluid resuscitation. EGD at [facility] on 10/05 showed gastritis, duodenitis, linear ulcerations [...] first post-hospitalization visit: 1. Wound check from SAP SPECIALIST-D placement 2. Consider restarting lisinopril if BPs improve and Cr is stable 3. Instructed pt to restart metformin on 08/18 but reevaluate based on Cr Schedule the following appointment(s) when you get home KULWINDER Stevens. Go on 10/19/2017. Why: at 1:15pm for heart failure follow up, to re-check labwork, and to have your wound ch ecked Contact information HEART [address] [address] KULWINDER Stevens. Go on 11/11/2017. Why: at 9:30am for cardiology follow up and to have your device checked Contact information HEART [address] [address] Medication List START taking these medications Childrens [...] Resume on 10/19. Indications: type 2 diabetes [facility] metoprolol succinate 25 mg Tb24 Commonly [...] 0%. 8.Stent: 3.0 x 18 mm Resolute Diablo drug-eluting stent. Lesion #2: 1.Lesion location: Distal [...] circumflex. One 3.0 x 18 mm Resolute Diablo drug-eluting stent. Successful percutaneous coronary transluminal angiop [...] ths. You should be cleared by your editor department prior to returning to driving. If you [...] How to Contact us: Cardiology Division Office [phone] Cardiology Patient Phone Line EDUIN [address] Dr[address] Dr., Dr., PA-C Connie Barber, NP Karen Paladino, RN Margaret Kleist, RN Evenings or weekends: Ask for on-call editor department Drug Eluting Stent 1. Please take Plavix (clopidogrel) everyday which helps to keep the stent open. You need t o take it every day for one year and do not stop unless you are told to by your editor department . 2. Take an aspirin 81 mg once daily indefinitely. 3. You were referred for cardiac rehab and should start now that you have had a stent place d. 4. Follow up with your editor department within 2-4 weeks. 5. No elective surgeries [...] smoker.Patient counseled on importance of smoking cessation [facility] Last vitals: BP: 101/65 (10/17/17 1144) Pulse: 80 (10/17/17 1144) Resp: 18 ( 1144) Weight: 88.4 kg (194 lb 14.2 oz) (10/17/17 0221) Discharging Provider: LALA SCHOFIELD PA-C, Cardiovascular Medicine Attending Physician: Khurram Bedoya MD, Cardiovascular Medicine Lala Schofield PA-C Instructor of Cardiovascular Medicine [facility] Cardiovascular [place] [facility] [place] I spent 36 minutes in coordination of care and wfna-fx-kgft with the patient and/or their s urrogate in which the problems above were discussed Associated attestation - Khurram Bedoya MD - 10/17/2017 3:22 PM PSTCardiology [facility] I have seen and examined Mr. Mckeon and discussed the [facility]. I reviewed the practitioner's note above and agree with the documented f indings and plan of care. KHURRAM BEDOYA MD Director of the [facility] Hypertrophic Cardiomyopathy Continuity Reader of Echocardiography Well Loggercadmium plater Division of Cardiovascular Medicine in this encounter Discharge Instructions The following attachments cannot be sent through Care Everywhere.WOUND CHECK (LITHUANIAN)ICD ( IMPLANTABLE CARDIOVERTER-DEFIBRILLATOR): POST-OP (LITHUANIAN)PAIN POST-SURGERY: ACUTE (LITHUANIAN) OPIOIDS: SAFE USE (LITHUANIAN)OPIOIDS: STORAGE AND DISPOSAL: GENERAL INFO (LITHUANIAN)in this enco unter Medications at Time of [...] AM PSTICD AND POCKET CHECK NOTE Ron Mkceon is a 61 y.o. Male who underwent [...] Information: Implant date: 10/16/17 BiV-ICD pulse generator: Sas Programmer: [employer] Model number: [id number] Serial number: [id number] RA lead: Sas Programmer: [employer]tr[employer] Model number: 5076-52 Serial number: [id number] RV lead: Sas Programmer: [employer] Model number: [id number] Serial number: [id number] CS lead: Sas Programmer: [employer] Model number: [id number] Serial number: [id number] ICD PROGRAMMING: Bradycardia Parameters: Mode: DDD Lower rate limit: 50 Upper rate limit: 130 Output (A): 3.5 V at 0.4 ms Sensitivity (A): 0.3 mV Output (RV): 3.5 V at 0.4 ms Sensitivity (RV): 0.3 mV Output (CS): 2.0 V at 0.4ms Tachycardia Parameters: VT zone: 177-200 Therapies: Monitor VF zone: >200 bpm Therapies: 35 J x 6 PACING PERCENTAGE: AP: <0.1% BOX SPINNER: 98.3% EPISODES SINCE IMPLANT: none. TODAY'S TESTING [...] and Device check in one month at [facility] device clinic. I have reque [...] MD Electrophysiology Fellow Division of Cardiovascular Medicine [facility] Pager [phone] Associated attestation - Lauro Jorgensen MD - 10/18/2017 12:04 PM PSTElectrophysiolog y Attending I have seen and examined Mr. Mckeon and discussed the patient's management with the resi dent and/or fellow. I reviewed the housestaff note above and agree with the documented find ings and plan of care. He is doing well. For regular device follow up. Lauro Jorgensen M.D. Director, Electrophysiology [employer] representative electric service [facility] Cardi[place] [phone] Amarilis Castle MD - 10/17/2017 10:53 AM [...] hs. You should be cleared by your editor department prior to returning to driving. ? If [...] through the full body scanner at the [facility] or, but only after 6 weeks post [...] How to Contact us: Cardiology Division Office [phone] Cardiology Patient Phone Line EDUIN [address] [...] 1) EP study with VT induction 2) SAP SPECIALIST-D Indication for the procedure: Ischemic cardiomyopathy with [...] MD Electrophysiology Fellow Division of Cardiovascular Medicine [facility] Pager [phone] Lala Schofield PA-C - 10/16/2017 2:07 PM PSTFormatting of this note may be different fro m the original. IP Cardiology Progress Note Date: 10/16/2017 Hospital Day: 6 Attending Community Development Manager: Khurram Bedoya MD Provider: LALA SCHOFIELD PA-C Primary Care Provider: Chato Matson MD Outpatient Community Development Manager: Dr Jamal Guerrero MD ID:Ron Mckeon is a 61 year old male with past medical history of CAD s/p anterior CHERY SC 03/2017 with cardiogenic shock s/p PCI with NAY to LM/LAD and LCx with ECMO support, systo lic heart failure (EF 20-25%), ischemic cardiomyopathy, hypertension, Atrial flutter, prior tobacco use, recent JAVON thrombus on anticoagulation, Influenza A with septic shock (10/03) re quiring intubation and mechanical ventilation, HAP on treatment who was admitted in transfer from [facility] on 10/11 for consideration of PCI vs [...] cannot appreciate murmur and sounds regular. J BOX SPINNER not above clavicle at 90 degrees Gastrointestinal: [...] found for: FREET4, TSH, TPOAB, THYROGLOB, THYROGLOBAB, [id number] Lab Results Component Value Date A1C 5.9 [...] 8. Stent: 3.0 x 18 mm Resolute Diablo drug-eluting stent. Lesion #2: 1. Lesion location: [...] uenza and underwent a coronary angiogram at [facility] which revealed in stent re-stenosis of both LM into LAD and LCx stents, mild disease of RCA. Transferred to [facility] for further onel luation. CTS was consulted for consideration of CABG vs complex PCI. Due to nonviable myocardium archie wn on cardiac PET and resting NM perfusion study, PCI was chosen over CABG. On 10/15 he underw ent angiography/PCI with impella support--had one 3.0 x 18 mm Resolute Diablo drug-eluting chery nt placed in ostial L [...] II-III, Stage C. Etiology ischemic. TTE at [facility] showed EF 30-35%, mildly reduced [...] check with EP -- f/u with outpatient editor department 2-4 weeks # Paroxysmal Aflutter Noted Aflutter with RVR at admission in [place]; treated with amiodarone infusion. Now maintaining SR on oral amio. CHADS-VASC 3, HAS-BLED 3. Was previously on heparin infusion fo r NSTEMI but this has been stopped and AC was not started in anticipation of PCI. --rate control: carvedilol as above --rhythm control: continue amiodarone 200 mg daily for now, to be reassessed b y outpatient editor department --anticoagulation: holding warfarin for now given DAPT and h/o GIB. Discuss fu rther with outpatient editor department. May consider holding anticoagulation unless he demonstra janeth recurrent arrhythmia # Influenza type A - resolved # Community acquired pneumonia # Severe sepsis with shock, resolved Pt presented to [facility] 10/03 found to be Flu A positive [...] sepsis management , fluid resuscitation. EGD at [facility] on 10/05 showed gastritis, duodenitis, linear ulcerations [...] patient was interviewed and examined by attending editor department, Dr. Khurram Bedoya MD , who is in agreement with above described findings, assessment and plan. LALA SCHOFIELD PA-C Cardiovascular Medicine [facility] Pager [phone] I spent 36 minutes in coordination of care and qrib-px-dpvy with the patient and/or their surrogate in [...] Continue current post-cath car tom SUERO MD [facility] [address] [place] [phone] Ruth Ann Carvajal PA-C - 10/15/2017 3:36 [...] circumflex. One 3.0 x 18 mm Resolute Diablo drug-eluting stent. Successful percutaneous coronary transluminal angiopla [...] circ and LAD. EPS v-stim with possible SAP SPECIALIST-D tomorrow (QRS today is 152 atypical LB BB). See yesterdays attestation Sophie Darby MD Cardiovascular Medicine - Electrophysiology [facility] Cardiovascular [place] at [facility] Arya Low MD - 10/15/2017 1:05 PM PSTCARDIOLOGY PRELIMINARY PROCEDURE NOTE Primary Care Provider: Chato Matson MD Referring Provider: Other Dictation Operations And Maintenance Specialist Staff: Tejal Modi M.D. Procedure(s): 1. Coronary angiography 2. Percutaneous coronary intervention 3. Left heart catheterization 4. Impella placement and removal 5. Moderate conscious sedation Indications: Unstable angina, planned LM intervention Access: 14-Barbadian RFA 6-Barbadian RFV 7-Barbadian LFA Post Procedure Access: No evidence of [...] Note Date: 10/15/2017 Hospital Day: 5 Attending Community Development Manager: Khurram Bedoya MD Provider: LALA SCHOFIELD PA-C Primary Care Provider: Chato Matson MD Outpatient Community Development Manager: Dr Jamal Guerrero MD ID:Ron Mckeon is [...] treatment who was admitted in transfer from [facility] on 10/11 for consideration of PCI vs [...] cannot appreciate murmur and sounds regular. J BOX SPINNER not above clavicle at 90 degrees Gastrointestinal: [...] found for: FREET4, TSH, TPOAB, THYROGLOB, THYROGLOBAB, [id number] Lab Results Component Value Date A1C 5.9 [...] uenza and underwent a coronary angiogram at [facility] which revealed in stent re-stenosis of both LM into LAD and LCx stents, mild disease of RCA. Transferred to [facility] for further onel luation. CTS was consulted for consideration of CABG vs complex PCI. Due to nonviable myocardium archie wn on cardiac PET and resting NM perfusion study, he will proceed with PCI tomorrow with Imp tania support. -- to yard laborer today for PCI with impella support [...] II-III, Stage C. Etiology ischemic. TTE at [facility] showed EF 30-35%, mildly reduced [...] Noted Aflutter with RVR at admission in [place]; treated with amiodarone infusion. Now maintaining SR [...] sepsis with shock, resolved Pt presented to [facility] 10/03 found to be Flu A positive [...] sepsis management , fluid resuscitation. EGD at [facility] on 10/05 showed gastritis, duodenitis, linear ulcerations [...] patient was interviewed and examined by attending editor department, Dr. Khurram Bedoya MD , who is in agreement with above described findings, assessment and plan. LALA SCHOFIELD PA-C Cardiovascular Medicine [facility] Pager [phone] I spent 38 minutes in coordination of care and npoc-wb-uyfh with the patient and/or their surrogate in which the following was discussed: plan for PCI with impella support today, hea rt failure, anticoagulation for aflutter, discharge planning Associated attestation - Khurram Bedoya MD - 10/15/2017 1:15 PM PSTCardiology Attendi I have seen and examined Mr. Mckeon and discussed the patient's management [facility]. I reviewed the practitioner's note above and agree with the documented f indings and plan of care. KHURRAM BEDOYA MD Director of the [facility] Hypertrophic Cardiomyopathy Continuity Reader of Echocardiography Well Loggercadmium plater Division of Cardiovascular Medicine Ruth Ann Carvajal [...] thickening is segmentally abnormal. 10/03/17: TTE @ [facility] Summary The number of aortic valve [...] remain. CARDIAC CATHETERIZATION: DATE OF PROCEDURE:10/03/17 @ [facility] CORONARY ANGIOGRAPHY DOMINANCE: Right LEFT MAIN [...] about Vf/VT risk in both short and 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 manager. Given NSVT and EF 30-35%, we will therefore proceed to an EP study with implantation o f an ICD if she has inducible VT. Given atypical LBBB QRS 147 and current functional status 3 (prior 1-2 by report) and concern for lack of EF recovery, we would plan for SAP SPECIALIST with His- bundle lead if needed. Sophie Darby MD Cardiovascular Medicine - Electrophysiology [facility] Cardiovascular [place] at [facility] Lala Schofield PA-C - 10/14/2017 11:58 AM PSTFormatting of this note may be different fro m the original. IP Cardiology Progress Note Date: 10/14/2017 Hospital Day: 4 Attending Community Development Manager: Khurram Bedoya MD Provider: LALA SCHOFIELD PA-C Primary Care Provider: Chato Matson MD Outpatient Community Development Manager: Dr Jamal Guerrero MD ID:Ron Mckeon is [...] treatment who was admitted in transfer from [facility] on 10/11 for consideration of PCI vs [...] Very t hankful of care provided at [facility] Current Inpatient Medications: acetaminophen (TYLENOL) [...] found for: FREET4, TSH, TPOAB, THYROGLOB, THYROGLOBAB, [id number] Lab Results Component Value Date A1C 5.9 [...] uenza and underwent a coronary angiogram at [facility] which revealed in stent re-stenosis of both LM into LAD and LCx stents, mild disease of RCA. Transferred to [facility] for further onel luation. CTS [...] II-III, Stage C. Etiology ischemic. TTE at [facility] showed EF 30-35%, mildly reduced [...] Noted Aflutter with RVR at admission in [place]; treated with amiodarone infusion. Now maintaining SR [...] sepsis with shock, resolved Pt presented to [facility] 10/03 found to be Flu A positive [...] sepsis management , fluid resuscitation. EGD at [facility] on 10/05 showed gastritis, duodenitis, linear ulcerations [...] patient was interviewed and examined by attending editor department, Dr. Khurram Bedoya MD , who is in agreement with above described findings, assessment and plan. LALA SCHOFIELD PA-C Cardiovascular Medicine [facility] Pager [phone] I spent 42 minutes in coordination of care and vnip-ml-xiwk with the patient and/or their s urrogate in which the following was discussed: results of nuc med and PET scan studies indic ating no viable myocardium and thus will plan for complex PCI tomorrow Associated attestation - Khurram Bedoya MD - 10/14/2017 9:29 PM PSTCardiology Attendi I have seen and examined Mr. Mckeon and discussed the patient's management [facility]. I reviewed the practitioner's note above and agree with the documented f indings and plan of care. KHURRAM BEDOYA MD Director of the [facility] Hypertrophic Cardiomyopathy Continuity Reader of Echocardiography Well Loggercadmium plater Division of Cardiovascular Medicine Ashleigh Alvarez ACNP - 10/13/2017 8:33 AM PSTFormatting of this note may be differ ent from the original. Cardiology Inpatient Progress Note Date: 10/13/2017 Hospital Day: 3 Primary Care Physician: Chato Matson MD Outpatient Community Development Manager: Dr Jamal Guerrero MD Attending Community Development Manager: Khurram Bedoya MD Provider: Ashleigh Alvarez [facility] ID: Ron Mckeon is a [...] who was admitted in transfe r from [facility] on 10/11 for consideration of PCI vs [...] found for: FREET4, TSH, TPOAB, THYROGLOB, THYROGLOBAB, [id number] Lab Results Component Value Date A1C 5.9 [...] exam dated, 03/30/2017, the LVEF is similar. [facility] CXR 10/11/17: FINDINGS: The increased [...] flow to distal LAD 10/03/17 Echo at [place]: The number of aortic valve leaflets cannot [...] stents # NSTEMI Pt was admitted to [facility] 10/03 with hypoxemic respiratory failure, severe sepsis and s hock thought to be due to influenza type A as below. Noted to have new LBBB, NSTEMI with pea k trop 26. Underwent coronary angiogram at [facility] 10/04 which revealed in stent re-steno sis of both LM into LAD and LCx stents, mild disease of RCA. Transferred to [facility] for further evaluation. TTE showed [...] II-III, Stage C. Etiology ischemic. TTE at [facility] showed EF 30-35%, mildly reduced RV function, mild dilation of ascending aorta. LVEDP 14 mm hg during catheterization 10/04 ( in setting of hypotension). Pt was diuresed at [facility], appears euvolemic on exam. Pt wa s [...] Noted Aflutter with RVR at admission in [place], treated with amiodarone infusion, main taining SR [...] admitted with acute dyspnea, respiratory failure to [facility] 10/03 found to be Flu A p [...] sepsis management , fluid resuscitation. EGD at [facility] on 10/05 showed gastritis, duodenitis, linear ulcerations [...] patient was interviewed and examined by attending editor department, Dr. Khurram Bedoya MD , who is in agreement with above described findings, assessment and plan. KULWINDER Grace Instructor of Medicine [facility] Cardiovascular [place] Pager [phone] I spent 33 minutes in coordination of care and bvpv-fi-lmsr with the patient and/or their s urrogate in which management of CAD, imaging plan and consultation with radiology, revascula rization treatment was discussed Associated attestation - Khurram Bedoya MD - 10/13/2017 2:48 PM PSTCardiology Attendi ng I have seen and examined Mr. Mckeon and discussed the [facility]. I reviewed the practitioner's note above and agree with the documented f indings and plan of care. KHURRAM BEDOYA MD Director of the [facility] Hypertrophic Cardiomyopathy Continuity Reader of Echocardiography Well Loggercadmium plater Division of Cardiovascular Medicine Ashleigh Alvarez ACNP - 10/12/2017 8:02 AM PSTFormatting of this note may be differ ent from the original. Cardiology Inpatient Progress Note Date: 10/12/2017 Hospital Day: 2 Primary Care Physician: Chato Matson MD Outpatient Community Development Manager: Dr Jamal Guerrero MD Attending Community Development Manager: Khurram Bedoya MD Provider: KULWINDER Grace ID: [...] who was admitted in transfe r from [facility] on 10/11 for consideration of PCI vs [...] found for: FREET4, TSH, TPOAB, THYROGLOB, THYROGLOBAB, [id number] Lab Results Component Value Date A1C 5.6 [...] exam dated, 03/30/2017, the LVEF is similar. [facility] CXR 10/11/17: FINDINGS: The increased [...] flow to distal LAD 10/03/17 Echo at [place]: The number of aortic valve leaflets cannot [...] stents # NSTEMI Pt was admitted to [facility] 10/03 with hypoxemic respiratory failure, severe sepsis and s hock thought to be due to influenza type A as below. Noted to have new LBBB, NSTEMI with pea k trop 26. Underwent coronary angiogram at [facility] 10/04 which revealed in stent re-steno sis of both LM into LAD and LCx stents, mild disease of RCA. Transferred to [facility] for further evaluation. TTE shows [...] II-III, Stage C. Etiology ischemic. TTE at [facility] showed EF 30-35%, mildly reduced RV function, mild dilation of ascending aorta. LVEDP 14 mm hg during catheterization 10/04 ( in setting of hypotension). He was diuresed at [place], appears euvolemic on exam today. Pt was [...] Aflutter with RVR prior to admission in [place], treated with amioda rima infusion, maintaining SR [...] admitted with acute dyspnea, respiratory failure to [place] 10/03 found to be Flu pos itive. [...] sepsis management , fluid resuscitation. EGD at [place] on 10/05 showed gastritis, duodenitis, linear ulcerations [...] patient was interviewed and examined by attending editor department, Dr. Khurram Bedoya MD , who is in agreement with above described findings, assessment and plan. Ashleigh Alvarez, [facility] Instructor of Medicine [facility] Cardiovascular [place] Pager [phone] I spent 51 minutes in coordination of care and iizw-qc-kznq with the patient and/or their s urrogate in which management of CAD, imaging plan and consultation with radiology, pneumonia treatment was discussed Associated attestation - Khurram Bedoya MD - 10/12/2017 3:00 PM PSTCardiology Attendi I have seen and examined Mr. Mckeon and discussed the patient's management with the [facility]. I reviewed the practitioner's note above and agree with the documented f indings and plan of care. KHURRAM BEDOYA MD Director of the [facility] Hypertrophic Cardiomyopathy Continuity Reader of Echocardiography Well Loggercadmium plater Division of Cardiovascular Medicine Lopez Suttonsebastiengeno - 10/11/2017 12:15 PM PSTTransthoracic echocardiogram completed. Final report to follow. in this encounter Plan of Treatment + +--------+ + + | Name | Priori | Associated Diagnoses | Order Schedule | | | ty | | | + +--------+ + + | MANAGER MARKET INT CORONARY ANGIOGRAM | Routin | | Tomorrow for 1 | | | e | | Occurrences starting | | | | | 10/15/2017 until | | | | | 10/15/2017 | + +--------+ + + | MANAGER MARKET EP ICD | Routin | | One [...] [address] | | | [place] [address] | + + + CAPILLARY BLOOD GLUCOSE [...] [address] | | | [place] [address] | + + + X-RAY CHEST 2 VIEW (10/17/2017 7:04 AM) + + + | Specimen | Performing Laboratory | + + + | | [facility] RADIOLOGY VOICE RECOGNITION | + [...] | + + + | Blood | [facility] LABORATORY SERVICES, CORE [address] | | | [place] [address] | + + + BASIC METABOLIC SET [...] | >60 | >60 mL/min | | EGYPTIAN | | | + + + + | EGFR NON | 51 (L) | >60 mL/min | | -EGYPTIAN | | | + + + + [...] | + + + | Blood | [facility] LABORATORY [facility], CORE [address] | | | [place] [address] | + + + + + | [...] | | ------ CBC (HEMOGRAM) | | ONLY[[id number]] Abnormal Final | | result Please view results for these tests on the | | individual orders. | + + CARDIOLOGY (10/17/2017)CARDIOLOGY (10/17/2017)X-RAY PORTABLE CHEST 1 VIEW (10/16/2017 6:20 PM) + + + | Specimen | Performing Laboratory | + + + | | [facility] RADIOLOGY VOICE RECOGNITION | + + + + + | Narrative | + + | STUDY: CA CHEST 1 VIEW HISTORY: Evaluated lead placement. COMPARISON: | | STUDY: CA CHEST 1 VIEW FINDINGS: A new left [...] procedure. | | He is candidate for SAP SPECIALIST-D since he as class 2 baseline heart failure and currently | | class 3 heart failure with LBBB 152 msec. PROCEDURE ATTENDING: Sophie Darby, | | FELLOW: Amarilis Castle MD PROCEDURAL | | DATA: Procedure: New implant Implanted generator telecommunications line mechanic: Medtronic | | Implanted leads telecommunications line mechanic: Medtronic Radha-procedure Anticoag: None Presenting | | rhythm: NSR Existing device under advisory? No Pacemaker dependent: No | | Method of sedation: Conscious sedation - Anesth provider Response to | | sedation: Normal Fluoroscopy time (see log): 45-47 minutes | | MEDICATIONS: See anesthesia log and yard laborer log INTAKE AND OUTPUT: 1000 ml [...] DEVICE INFORMATION: | | BiV-ICD pulse generator: Sas Programmer: Medtronic Model number: [id number] | | Serial number: [id number] RA lead: Sas Programmer: Medtronic Model number: | | 5076-52 Serial number: [id number] RV lead: Sas Programmer: Medtronic | | Model number: [id number] Serial number: [id number] CS lead: | | Sas Programmer: Medtronic Model number: [id number] Serial number: [id number] | | MEASURED PARAMETERS: RA lead: P [...] Fellow Division of Cardiovascular Medicine [facility] | | Pager [phone] Pursuant to Federal Medicare requirements, I certify that I, Sophie | | Wilner BREWER, was present for the entire procedure, performed all critical elements, and | | participated directly in the generation of this report. Sophie Darby MD | | Cardiovascular Medicine - Electrophysiology [facility] Cardiovascular [place] at [facility] | | | + + [...] Castle MD MEDICATIONS: See anesthesia log and yard laborer | | log FLUIDS: In: 300 [...] interval (ms): 82 HV interval (ms): 75 CA interval (ms): | | 180 QRS duration [...] of | | Cardiovascular Medicine [facility] Pager [phone] Pursuant | | to Federal Medicare requirements, I certify that I, Sophie Darby MD, was present for | | the entire procedure, performed all critical elements, and participated directly in | | the generation of this report. Sophie Darby MD Cardiovascular Medicine - | | Electrophysiology [facility] Cardiovascular [place] at [facility] | + + VBG-FULL ABL, [...] [address] | | | [place] [address] | + + + INTRAPROCEDURE IMAGING (10/16/2017 [...] [address] | | | [place] [address] | + + + CBC (HEMOGRAM) ONLY [...] | + + + | Blood | [facility] LABORATORY SERVICES, CORE [address] [place] [address] | | | [place] [address] | + + + BASIC METABOLIC SET [...] | >60 | >60 mL/min | | EGYPTIAN | | | + +---------+ + | EGFR NON | 58 (L) | >60 mL/min | | -EGYPTIAN | | | + +---------+ + | [...] | + + + | Blood | [facility] LABORATORY SERVICES, CORE [address] [facility] | | | [place] [address] | + + + + + | [...] | | ------ CBC (HEMOGRAM) | | ONLY[[id number]] Abnormal Final | | result Please view [...] [address] | | | [place] [address] | + + + 12 LEAD ECG [...] Laboratory | + + + | | [facility] [address] [place] [address] | | | [place] [address] | + + + CARDIAC CATH (10/15/2017 2:11 PM) + + | Procedure Note | + + | Tejal Modi MD - 10/15/2017 2:11 PM PST DATE OF PROCEDURE:October 15 | | 2018PERFORMING PHYSICIAN:Tejal Modi [facility] ATTENDING:Mike Bray MDThere was no | [...] 110 mL.FLUOROSCOPY TIME:17.8 minutes.FLUOROSCOPY | | DAP:7406.0 mFhzo2GXVTDAICRIRP:1. Left ventricular pressure 91/23 mmHg.2. Aortic | | pressure 93/72 mmHg, mean of 80 mmHg. 3. Heart rate 71 beats per minute.ACCESS:1. | | 14-Barbadian Impella sheath in the right femoral artery.2. 7-Barbadian sheath in the left | | femoral artery.3. 6-Barbadian sheath in the right femoral vein.ESTIMATED BLOOD [...] | micropuncture technique and ultrasound guidance, a 5-Barbadian sheath was inserted in the | | right femoral artery and a 6-Barbadian sheath was inserted in the right femoral vein. Two | | Perclose devices were deployed in the preclosure method and then the 5-Barbadian sheath was | | exchanged over an Amplatz stiff wire for the 14-Barbadian Impella sheath. A 5-Barbadian | | angled pigtail catheter was then [...] technique and ultrasound guidance and placed a 7-Barbadian sheath. A 7-Barbadian XB 3.5 guide | | catheter was [...] and a 3.0 x 18 mm Resolute Diablo drug-eluting stent was advanced over the | [...] and pulled out of the body. The 14-Barbadian sheath was | | then removed and [...] with one 3.0 x 18 mm Resolute Diablo drug-eluting stent. Successful | | percutaneous coronary [...] | | 10/15/2017 13:25:02DT: 10/15/2017 14:11:10Job #: [id number] | |2. Lesion type: C. | |3. [...] |BCN/MODL | | | | | | /[id number] | + + ACT, POC-CCL ONLY (10/15/2017 [...] [address] | | | [place] [address] | + + + ACT, POC-CCL ONLY (10/15/2017 12:17 PM) + +-------+ + | Component | Value | Ref Range | + +-------+ + | ACT, POC CCL | 247 | 90 - 150 | | INTRAPROC | | | + +-------+ + + + + | Specimen | Performing Laboratory | + + + | Blood | [facility] [place] [place], POINT OF CARE TESTS [address] | | | [place] [address] | + + + ACT, POC-CCL ONLY [...] [address] | | | [place] [address] | + + + MANAGER MARKET EMERGENT/IMMEDIATE PROCEDURE (10/15/2017 11:00 AM) + + | Narrative | + + | Procedure performed in the Cardiac Operations And Maintenance Specialist. See procedure notes for details. | + + CAPILLARY BLOOD GLUCOSE (NO CHG), POC (10/15/2017 9:25 AM) + +---------+ + | Component | Value | Ref Range | + +---------+ + | BLOOD GLUCOSE, POC | 119 (H) | 70 - 99 mg/dL | + +---------+ + + + + | Specimen | Performing Laboratory | + + + | | [facility], POINT OF CARE TESTS [address] | | | [place] [address] | + + + CBC (HEMOGRAM) ONLY [...] | + + + | Blood | [facility] LABORATORY SERVICES, CORE [address] [facility] | | | [place] [address] | + + + BASIC METABOLIC SET [...] 57 (L) | >60 mL/min | | EGYPTIAN | | | + + + + | EGFR NON | 47 (L) | >60 mL/min | | -EGYPTIAN | | | + + + + [...] | + + + | Blood | [facility] LABORATORY SERVICES, CORE [address] [place] [address] | | | [place], [place] [address] | + + + + + | [...] | | ------ CBC (HEMOGRAM) | | ONLY[[id number]] Abnormal Final | | result Please view [...] | + + + | Blood | [facility] LABORATORY SERVICES, CORE [address] [facility] | | | [place] [address] | + + + + + | [...] Laboratory | + + + | | [facility] [place], POINT OF CARE TESTS [address] | | | [place] [address] | + + + BASIC METABOLIC SET [...] | >60 | >60 mL/min | | EGYPTIAN | | | + + + + | EGFR NON | 55 (L) | >60 mL/min | | -EGYPTIAN | | | + + + + [...] | + + + | Blood | [facility] LABORATORY SERVICES, CORE [address] [facility] | | | [place] [address] | + + + + + | [...] | + + + | Blood | [facility] LABORATORY [facility], CORE [address] [facility] | | | [place] [address] | + + + CBC ONLY (10/14/2017 4:24 AM) + + + | Specimen | Performing Laboratory | + + + | Blood | | + + + + + | Narrative | + + | The following orders were created for panel order CBC ONLY. | | Procedure | | Abnormality Status | | --------- | | ------ CBC (HEMOGRAM) | | ONLY[[id number]] Abnormal Final | | result Please view [...] + + + | | [facility], POINT OF CARE TESTS [address] | | | [place] [address] | + + + PET CARDIAC METABOLIC [...] | | significant tracer uptake within the nda-vk-kfiyuv anterior wall/interventricular septum | | and apex [...] Note | + + | Service Account, [employer] In Interface - 10/14/2017 5:47 PM PST [...] significant tracer | | uptake within the rua-uj-eqpkss anterior wall/interventricular septum and apex | | corresponding to same non-perfused areas seen on myocardial rest perfusion scan, | | compatible with nonviable myocardium in these regions. I have personally reviewed the | | images and, if necessary, edited the report. I agree with the report as now presented. | |No significant tracer uptake within the dwm-tb-bxuwls anterior wall/interventricular septum and apex corresponding to [...] + + + | | [facility] [place], POINT OF CARE TESTS [address] | | | [place] [address] | + + + CAPILLARY BLOOD GLUCOSE [...] [address] | | | [place] [address] | + + + CAPILLARY BLOOD GLUCOSE (NO CHG), POC (10/13/2017 4:16 PM) + +---------+ + | Component | Value | Ref Range | + +---------+ + | BLOOD GLUCOSE, POC | 201 (H) | 70 - 99 mg/dL | + +---------+ + + + + | Specimen | Performing Laboratory | + + + | | [facility] [place], POINT OF CARE TESTS [address] | | | [place] [address] | + + + CAPILLARY BLOOD GLUCOSE [...] [address] | | | [place] [address] | + + + CAPILLARY BLOOD GLUCOSE (NO CHG), POC (10/13/2017 3:47 PM) + +---------+ + | Component | Value | Ref Range | + +---------+ + | BLOOD GLUCOSE, POC | 181 (H) | 70 - 99 mg/dL | + +---------+ + + + + | Specimen | Performing Laboratory | + + + | | [facility] [place], POINT OF CARE TESTS [address] | | | [place] [address] | + + + CAPILLARY BLOOD GLUCOSE [...] [address] | | | [place] [address] | + + + CAPILLARY BLOOD GLUCOSE [...] [address] | | | [place] [address] | + + + CAPILLARY BLOOD GLUCOSE (NO CHG), POC (10/13/2017 3:03 PM) + +---------+ + | Component | Value | Ref Range | + +---------+ + | BLOOD GLUCOSE, POC | 153 (H) | 70 - 99 mg/dL | + +---------+ + + + + | Specimen | Performing Laboratory | + + + | | [facility], POINT OF CARE TESTS [address] | | | [place] [address] | + + + CAPILLARY BLOOD GLUCOSE [...] [address] | | | [place] [address] | + + + CAPILLARY BLOOD GLUCOSE [...] [address] | | | [place] [address] | + + + CAPILLARY BLOOD GLUCOSE [...] [address] | | | [place] [address] | + + + NM MYOCARDIAL PERFUSION (SPECT) SINGLE AT REST OR STRESS (10/13/2017 11:18 AM) + + + | Specimen | Performing Laboratory | + + + | | [facility] RADIOLOGY VOICE RECOGNITION | + + + [...] Note | + + | Service Account, [employer] In Interface - 10/13/2017 5:30 PM PST [...] Laboratory | + + + | | [facility] [place], POINT OF CARE TESTS [address] | | | [place] [address] | + + + CBC (HEMOGRAM) ONLY [...] | + + + | Blood | [facility] LABORATORY SERVICES, CORE [address] [facility] | | | [place] [address] | + + + BASIC METABOLIC SET [...] | >60 | >60 mL/min | | EGYPTIAN | | | + +---------+ + | EGFR NON | 59 (L) | >60 mL/min | | -EGYPTIAN | | | + +---------+ + | [...] | + + + | Blood | [facility], CORE [address] [facility] | | | [place] [address] | + + + + + | [...] | | ------ CBC (HEMOGRAM) | | ONLY[[id number]] Abnormal Final | | result Please view [...] Laboratory | + + + | | [facility], POINT OF CARE TESTS [address] [facility] [address] | | | [place] [address] | + + + CARDIOLOGY (10/13/2017)CARDIOLOGY (10/13/2017)APTT (ACT. PART. THROMBO TIME) (10/12/2017 8 :44 PM) + +-------+ + | Component | Value | Ref Range | + +-------+ + | APTT | 28.7 | 26.0 - 36.0 seconds | + +-------+ + + + + | Specimen | Performing Laboratory | + + + | Blood | [facility] LABORATORY SERVICES, CORE [address] [place] [address] | | | [place], [place] [address] | + + + + + | [...] [address] | | | [place] [address] | + + + MR CARDIAC COMPREHENSIVE W/O CONTRAST (10/12/2017 12:38 PM) + + + | Specimen | Performing Laboratory | + + + | | [facility] RADIOLOGY CARDIAC IMAGING | + + + + + | Narrative | + + | Report ====== Slicing Machine Operator: Rodríguez Fortune ([id number])shubham Meat Stock Clerk: shubham | | richy Fellow: shubham lockhart Lithographic Photographer Apprentice: shubham lockhart Viewer: shubham | | richy Report Date: 16 Oct 2017, 09:22:25 PST Patient ------- Patient: | | RON MCKEON Neena Acc #: [id number] | | Ethnicity: N Status: Final Report [...] Formula) | | Image Quality: Good Scanner Sas Programmer: Spectraseis Scanner Model: Ingenia | | Scanner Serial Number: [id number] Scanner Software Platform: 5.3.15.3.1.0 Staff: Rodríguez Fortune Modality: MR Indication Name: routine Protocol Name: CMR W Flows WO Contrast | | Findings -------- Non-cardiac findings were reviewed by Dr. Curtis. This exam was | | terminated prematurely and is lmiited to security technician images. There are bilateral pleural | | [...] - 10/16/2017 9:22 AM PST | | Report======Slicing Machine Operator: Rodríguez Fortune ([id number]), shubham Rodriguezalyst: shubham | | Lorena: shubham Beckician: shubham Beckwithwer: shubham | | espinozamRalbretoort Date: 16 Oct 2017, 09:22:25 PSTPatient-------Patient: RON MCKEON | | JMedical Record Number: [id number] ID: [id number] #: [id number]: NStatus: | | Final ReportReport Number: [id number]: MaleBirthdate: 1955 (61 yrs)Study Date: 05 | | Oct 2017Study Description: CMR with Flows with ContrastReferring Physician: KHURRAM | | VIKASHITRADHABlood Pressure: /Heart rate:Height (cm): 0Weight (kg): 89BMI (kg/m ): 0BSA | | (m ): 0 (Mosteller Formula)Image Quality: Pepperfry.comcanner Sas Programmer: Ulule | | BagThatScPicodeon Model: Kaboo Cloud Camera Serial Number: [id number] Software Platform: | | 5.3.15.3.1.0Staff: Rodríguez FortuneModality: MRIndication Name: routineProtocol Name: | | CMR W Flows WO ContrastFindings--------Non-cardiac findings were reviewed by | | Ever.This exam was terminated prematurely and is lmiited to security technician images.There are | | bilateral pleural effusions. [...] Formula) | |Image Quality: Good | |Scanner Sas Programmer: Spectraseis | |Scanner Model: RoboCV | |Scanner Serial Number: [id number] | |Scanner Software Platform: 5.3.15.3.1.0 | |Staff: Rodríguez Fortune | |Modality: MR | |Indication Name: routine | |Protocol Name: CMR W Flows WO Contrast | |Findings | |-------- | |Non-cardiac findings were reviewed by Dr. Curtis. | |This exam was terminated prematurely and is lmiited to security technician images. | |There are bilateral pleural effusions. [...] [address] | | | [place] [address] | + + + CBC (HEMOGRAM) ONLY [...] | + + + | Blood | [facility] LABORATORY SERVICES, CORE [address] [place] [address] | | | [place] [address] | + + + APTT (ACT. PART. THROMBO TIME) (10/12/2017 7:01 AM) + + + + | Component | Value | Ref Range | + + + + | APTT | 50.7 (H) | 26.0 - 36.0 seconds | + + + + + + + | Specimen | Performing Laboratory | + + + | Blood | [facility] LABORATORY [facility] [address] [facility] | | | [place] [address] | + + + + + | [...] | >60 | >60 mL/min | | EGYPTIAN | | | + + + + | EGFR NON | 55 (L) | >60 mL/min | | -EGYPTIAN | | | + + + + [...] | + + + | Blood | [facility] LABORATORY SERVICES, CORE [address] | | | [place] [address] | + + + + + | [...] | | ------ CBC (HEMOGRAM) | | ONLY[[id number]] Abnormal Final | | result Please view [...] | + + + | Blood | [facility] LABORATORY SERVICES, CORE [address] [place] [address] | | | [place] [address] | + + + + + | [...] + + + | | [facility] [place], POINT OF CARE TESTS [address] | | | [place] [address] | + + + CAPILLARY BLOOD GLUCOSE [...] [address] | | | [place] [address] | + + + CULTURE, SPUTUM (10/11/2017 5:45 PM) + + + | Specimen | Performing Laboratory | + + + | Sputum | [facility] [address] [place], [place] | | | [address] | + + + + + | Narrative | + + | Culture Report: This culture has been discontinued. Gram Stain: Squamous | | epithelial cells in the specimen indicate the presence of significant oropharyngeal | | contamination. CRITICAL RESULTS Results called to and verified by: Vicki | | Amy at phone # [facility] on: 10/12/2017 8:10:02 AM PST by: [id number] | + + APTT (ACT. PART. THROMBO TIME) (10/11/2017 4:49 PM) + + + + | Component | Value | Ref Range | + + + + | APTT | 39.7 (H) | 26.0 - 36.0 seconds | + + + + + + + | Specimen | Performing Laboratory | + + + | Blood | [facility] LABORATORY [facility], CORE [address] [facility] [address] | | | [place] [address] | + + + + + | [...] | + + + | Blood | [facility] LABORATORY SERVICES, CORE [address] [place] [address] | | [facility] [address] | + + + APTT (ACT. PART. THROMBO TIME) (10/11/2017 12:43 PM) + + + + | Component | Value | Ref Range | + + + + | APTT | 45.6 (H) | 26.0 - 36.0 seconds | + + + + + + + | Specimen | Performing Laboratory | + + + | Blood | [facility] [address] [facility] | | | [place] [address] | + + + + + | [...] | + + + | Blood | [facility] LABORATORY SERVICES, SPECIAL IMM + COAG [address] [facility] | | | [place] [address] | + + + + + | [...] should be considered for | | monitoring fci glycemic control in patients with: Increased red [...] | | ------ CBC (HEMOGRAM) | | ONLY[[id number]] Abnormal Final | | result Please view [...] Laboratory | + + + | | [facility] DEPT OF CARDIOLOGY [address] [place] [address] | | | [place] [address] | + + + + + | Narrative | + + | [facility] Adult Echocardiography Laboratory | | [address] [place], [place] [address] Ph: | | Pt Name: RON MCKEON Study | | Date/Time 10/11/2017 / 11:47:35 AM | | Most recent prior: 03/30/2017 Acc #: [id number] No. previous | | echos: 4 : 1955 61 years Heart Rate: 84 bpm | | Height: 69.0 in Blood Pressure: 115/68 mm/Hg | | Weight: 196.0 lb Gender: M | | BSA: 2.05 m2 Order ID: [id number] | | Cellophane Press Operator: Shahab Sutton [facility] Referring Provider: Kimmy Low Patient | | [...] use disorder who presents on transfer from [place] for consideration of | | complex PCI [...] | Wall Scoring: Report electronically signed by: [id number] Khurram Bedoya MD | | (10/11/2017, 12:59:49 PM) Final (Updated) | + + + + | Procedure Note | + + | Interface, Ecg Results - 10/11/2017 1:[address] [facility] [employer] | | [facility] Echocardiography Laboratory [facility] | | [place], [place] [address] Pt Name: RON Chaudhary | | MIKE Study Date/Time 10/11/2017 / 11:47:35 AMMRN: [id number] Most | | recent prior: 03/30/2017Acc #: [id number] No. previous echos: 4DOB: | | 1955 61 years Heart Rate: 84 bpmHeight: 69.0 in Blood | | Pressure: 115/68 mm/HgWeight: 196.0 lb Gender: MBSA: | | 2.05 m2 Order ID: [id number] Cellophane Press Operator: Shahab Sutton RDCSReferring | | Provider: Kimmy [...] use disorder who presents on transfer from [place] | | for consideration of complex PCI [...] Ao (prox) | | 3.70 cm 18.1 mm/e6Bwrnsbxjvs of chamber size and geometry is accomplished | | through the incorporation of linear, volumetric, and indexed values Wall Scoring: Report | | electronically signed by: [id number] Khurram Bedoya MD (10/11/2017, 12:59:49 PM) | [...] | | | |Report electronically signed by: [id number] Khurram Bedoya MD (10/11/2017, 12:59:49 | |PM) | | | | | | | | Final (Updated) | + + X-RAY PORTABLE CHEST 1 VIEW (10/11/2017 11:24 AM) + + + | Specimen | Performing Laboratory | + + + | | [facility] RADIOLOGY VOICE RECOGNITION | + + + + + | Narrative | + + | STUDY: CA CHEST 1 [...] Note | + + | Service Account, [employer] In Interface - 10/11/2017 1:51 PM [...] | + + + | Blood | [facility] SERVICES, CORE [address] [facility] | | | [place] [address] | + + + CBC ONLY (10/11/2017 6:31 AM) + + + | Specimen | Performing Laboratory | + + + | Blood | | + + + + + | Narrative | + + | The following orders were created for panel order CBC ONLY. | | Procedure | | Abnormality Status | | --------- | | ------ CBC (HEMOGRAM) | | ONLY[[id number]] Abnormal Final | | result Please view [...] | + + + | Blood | [facility], CORE [address] [facility] | | | [place] [address] | + + + + + | [...] | >60 | >60 mL/min | | EGYPTIAN | | | + +---------+ + | EGFR NON | >60 | >60 mL/min | | -EGYPTIAN | | | + +---------+ + | [...] | + + + | Blood | [facility] SERVICES, CORE [address] [facility] | | | [place] [address] | + + + + + | [...] | + + + | Blood | [facility], CORE [address] [place] [address] | | | [place] [address] | + + + APTT (ACT. PART. THROMBO TIME) (10/10/2017 11:27 PM) + +-------+ + | Component | Value | Ref Range | + +-------+ + | APTT | 29.5 | 26.0 - 36.0 seconds | + +-------+ + + + + | Specimen | Performing Laboratory | + + + | Blood | [facility] [address] [facility] | | | [place] [address] | + + + + + | [...] | + + + | Blood | [facility], CORE [address] [facility] | | | [place] [address] | + + + + + | [...] | | ------ CBC (HEMOGRAM) | | ONLY[[id number]] Abnormal Final | | result Please view [...] | + + + | Blood | [facility], CORE [address] [facility] | | | [place] [address] | + + + + + | [...] Laboratory | + + + | | [facility] [address] [place] [address] | | | [place] [address] | + + + ORDERS OTHER (10/10/2017)CARDIOLOGY (10/10/2017)CARDIOLOGY (10/10/2017)CARDIOLOGY (10/10/19)in this encounter Visit Diagnoses + + | Diagnosis | + + | NSTEMI (non-ST elevated myocardial infarction) (HCC) - Primary | + + | Acute myocardial infarction, subendocardial infarction, episode of care unspecified | + + | Coronary 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 involving hopi coronary artery of hopi heart, angina | | presence unspecified | [...] Coronary atherosclerosis of unspecified type of vessel, hopi or graft | + + | Paroxysmal atrial flutter (HCC) | + + | Atrial flutter | + + | Chronic systolic congestive heart failure (HCC) | + + | Chronic systolic heart failure | + + | Encounter for insertion of cardiac resynchronization therapy defibrillator (SAP SPECIALIST-D) | + + | Influenza, pneumonia | [...] 12:42 | | | | | Starting [facility] 10/15/17 at 1242, | | PST [...] Units | | | | PRN, Starting [facility] 10/15/17 at 1207, | | PST | | | | | Until Discontinued | | | | | | + +-------+ +--------+---+---+ +---+---+ | | | +---+---+ + +-------+ +--------+---+---+ | heparin 1,000 unit/mL injection | Given | 10/15/2017 | 1,500 | | | | intravenous, INTRAPROCEDURE | | 12:20 | Units | | | | PRN, Starting [facility] 10/15/17 at 1220, | | PST [...] 13:05 | | | | | Starting [facility] 10/15/17 at 1305, | | PST | | | | | Until Discontinued | | | | | | + +-------+ +--------+---+---+ +---+---+ | | | +---+---+ + +-------+ +------+---+---+ | iohexol (OMNIPAQUE) 300 mg | Given | 10/16/2017 | 7 mL | | | | iodine/mL INTRAPROCEDURE PRN, | | 14:27 | | | | | Starting [facility] 10/16/17 at 1427, | | PST | [...]
--- OUTSIDE RECORDS SUMMARY | ~2017-12-04 | XMS | Clinical Summary ---
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 | | -secretions improving, cough strong -s/p [...] stayExtubated 03/22, started on | | NC O7Jbntm infusion begun 03/22 for daily goal -1 [...] | | 2018 | Event | | ZYGLO INSPECTOR | | +--------+ + + + + [...] | | | or | | | (CODER-D)8) | | | Paroxysmal | | | atrial | | | flutter | | | (HCC)9) | | | Influenza, | | | [id number] | | | ) | | | [...] | | induction | | | 2) CODER-D | | | implantatio | | | [...] | | course at | | | [facility] | | | prior to | | [...] | | therefore a | | | CODER-D was | | | implanted. | | [...] | and thus a | | | CODER-D was | | | placed. | | [...] | | EP 2/9, | | | CODER-D | | | -- | | | [...] | be noted on | | | CODER-D and | | | could | | [...] | on. EGD at | | | [facility] | | | on 10/05 | | [...] | | # Pre | | | [id number] | | | 5.6 on | | [...] | Wound check | | | from CODER-D | | | | | | placement2. [...] | | | Hansa | | | Bimble, | | | ACNP. Go | | [...] | | | CLINICS | | | [id number] | | | [address] | | | [address] | | | [place] | | | [phone] | | | [phone] | | | Hansa | | | Bimble, | | | ACNP. Go | | [...] | | | CLINICS | | | [id number] | | | [address] | | | [address] | | | [place] | | | [phone] | | | [phone] | | | [...] | | 25 mg | | | [id number] | | | y known as: | [...] | CR 30 mg | | | [id number] | | | y known as: | [...] | | mm Resolute | | | Wise | | | drug-elutin | | | [...] | | | us:Phone: | | | [phone] | | | 0 | | | Cardiology | | | Division | | | Office | | | | | | [phone] | | | 0 | | | [...] | | | lar | | | [place] | | | [place] | | | [facility] & | | [...] | | | HANDY | | | [id number] | | Tejal Pettit MD | | | | | | X / | | | | | | | | /[id number] | | | | | | | | [id number] | + +------+--------+ +--------+--------+--------+ Results CAPILLARY BLOOD [...] TESTS [address] | | | [place] [address] | + + + X-RAY CHEST 2 [...] Note | + + | Service Account, Fididel In Interface - 10/17/2017 7:51 AM PST [...] [facility], CORE [address] [place] [address] | | | [place] [address] | + + + BASIC METABOLIC SET [...] | >60 | >60 mL/min | | FAROESE | | | + + + + | EGFR NON | 51 (L) | >60 mL/min | | -FAROESE | | | + + + + [...] [facility], CORE [address] [facility] | | | [place], [place] [address] | + + + + + | [...] | | ------ CBC (HEMOGRAM) | | ONLY[[id number]] Abnormal Final | | result Please view [...] | Narrative | + + | STUDY: [place] CHEST 1 VIEW HISTORY: Evaluated lead placement. COMPARISON: | | STUDY: [place] CHEST 1 VIEW FINDINGS: A new left [...] Note | + + | Service Account, Fididel In Interface - 10/17/2017 7:51 AM PST STUDY: IL CHEST 1 | | VIEWHISTORY: Evaluated lead placement.COMPARISON: STUDY: [place] CHEST 1 VIEWFINDINGS: A | | new [...] procedure. | | He is candidate for CODER-D since he as class 2 baseline heart failure and currently | | class 3 heart failure with LBBB 152 msec. PROCEDURE ATTENDING: Sophie Darby | | FELLOW: Amarilis Castle MD PROCEDURAL | | DATA: Procedure: New implant Implanted generator oil derrick operator: Medtronic | | Implanted leads oil derrick operator: Medtronic Radha-procedure Anticoag: None Presenting | | rhythm: NSR Existing device under advisory? 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 | | Pager [phone] Pursuant to Federal Medicare requirements, I certify that I, Sophie | | Wilner BREWER, was present for the entire procedure, performed all critical elements, and | | participated directly in the generation of this report. Sophie Darby MD | | Cardiovascular Medicine - Electrophysiology [facility] Cardiovascular [place] at [facility] | | [...] + + + | | [facility], POINT OF [facility] TESTS [address] | | | [place] [address] | + + + INTRAPROCEDURE IMAGING (10/16/2017 [...] Laboratory | + + + | | [facility] [address] [place] [address] | | | [place] [address] | + + + CARDIAC CATH (10/15/2017 2:11 PM) + + | Procedure Note | + + | Tejal Modi MD - 10/15/2017 2:11 PM PST DATE OF PROCEDURE:October 15, | | 2018PERFORMING PHYSICIAN:Tejal Modi [facility] ATTENDING:Mike Bray MDThere was no [...] 110 mL.FLUOROSCOPY TIME:17.8 minutes.FLUOROSCOPY | | DAP:7406.0 aUmmi4ONOWSJSBCSKI:1. Left ventricular pressure 91/23 mmHg.2. Aortic | | pressure 93/72 mmHg, mean of 80 mmHg. 3. Heart rate 71 beats per minute.ACCESS:1. | | 14-Somali Impella sheath in the right femoral artery.2. 7-Somali sheath in the left | | femoral artery.3. 6-Somali sheath in the right femoral vein.ESTIMATED BLOOD [...] | micropuncture technique and ultrasound guidance, a 5-Somali sheath was inserted in the | | right femoral artery and a 6-Somali sheath was inserted in the right femoral vein. Two | | Perclose devices were deployed in the preclosure method and then the 5-Somali sheath was | | exchanged over an Amplatz stiff wire for the 14-Somali Impella sheath. A 5-Somali | | angled pigtail catheter was then [...] technique and ultrasound guidance and placed a 7-Somali sheath. A 7-Somali XB 3.5 guide | | catheter was [...] and pulled out of the body. The 14-Somali sheath was | | then removed and [...] with one 3.0 x 18 mm Resolute Wise drug-eluting stent. Successful | | percutaneous coronary [...] | | 10/15/2017 13:25:02DT: 10/15/2017 14:11:10Job #: [id number] | |2. Lesion type: C. | |3. [...] with one 3.0 x 18 mm Resolute Wise drug-eluting stent. Successful percutaneous coronary transluminal angio [...] |BCN/MODL | | | | | | /[id number] | + + ACT, POC-CCL ONLY (10/15/2017 [...] | + + + | Blood | [facility], POINT OF CARE TESTS [address] | | | [place] [address] | + + + PARA EDUCATOR EMERGENT/IMMEDIATE PROCEDURE (10/15/2017 11:00 AM) + + | Narrative | + + | Procedure performed in the Cardiac Resident Care Aid. See procedure notes for details. | + [...] [facility], CORE [address] | | | [place], [place] [address] | + + + + + | [...] | | significant tracer uptake within the gxz-pn-zzorjm anterior wall/interventricular septum | | and apex [...] Note | + + | Service Account, Fididel In Interface - 10/14/2017 5:47 PM PST [...] significant tracer | | uptake within the szg-qc-qnujhl anterior wall/interventricular septum and apex | | corresponding to same non-perfused areas seen on myocardial rest perfusion scan, | | compatible with nonviable myocardium in these regions. I have personally reviewed the | | images and, if necessary, edited the report. I agree with the report as now presented. | |No significant tracer uptake within the qso-fj-hszpjz anterior wall/interventricular septum and apex corresponding to [...] Laboratory | + + + | | [employer] RADIOLOGY VOICE RECOGNITION | + + + [...] Note | + + | Service Account, [employer] Res In Interface - 10/13/2017 5:30 PM [...] | + + + | Blood | [facility] SERVICES, CORE [address] [facility] | | | [place] [address] | + + + + + | [...] Narrative | + + | Report ====== Stockroom Supervisor: Rodríguez Fortune ([phone]), shubham lockhart Ortho Rn: shubham | | richy Fellow: shubham lockhart Telecommunications Cable Jointer: shubham lockhart Viewer: shubham | | richy Report Date: 16 Oct 2017, 09:22:25 [facility] Patient ------- Patient: | | RON MCKEON Acc #: [id number] | | Ethnicity: N Status: Final Report [...] Formula) | | Image Quality: Good Scanner Final Inspector Paper: [place] [employer] Scanner Model: GoodApril | | Scanner Serial Number: [id number] Scanner Software Platform: 5.3.15.3.1.0 Staff: Rodríguez | | Tong Modality: MR Indication Name: routine Protocol Name: CMR W Flows WO Contrast | | Findings -------- Non-cardiac findings were reviewed by Dr. Curtis. This exam was | | terminated prematurely and is lmiited to pattern drafter images. There are bilateral pleural | | [...] - 10/16/2017 9:22 AM PST | | Report======Stockroom Supervisor: Rodríguez Tong ([phone]), shubham Rodriguezalyst: shubham | | richyFellow: shubham Garciaechnician: shubham Johniewer: shubham | | jadarkomReport Date: 16 Oct 2017, 09:22:25 PSTPatient-------Patient: RON MCKEON | | JMedical Record Number: [id number] ID: [id number] #: [id number]: [id number]: | | Final ReportReport Number: [id number]: MaleBirthdate: 1955 (61 yrs)Study Date: 05 | | Oct 2017Study Description: CMR with Flows with ContrastReferring Physician: KHURRAM | | HEITNERBlood Pressure: /Heart rate:Height (cm): 0Weight (kg): 89BMI (kg/m ): 0BSA | | (m ): 0 (Mosteller Formula)Image Quality: KiromiccanR2integrated Final Inspector Paper: RackHunt | | Credible Model: [employer]orb[employer] Serial Number: [id number] Software Platform: | | [id number]: Rodríguez FortuneModality: MRIndication Name: routineProtocol Name: | | CMR W Flows WO ContrastFindings--------Non-cardiac findings were reviewed by | | Fusmoon.This exam was terminated prematurely and is lmiited to pattern drafter images.There are | | bilateral pleural effusions. [...] Formula) | |Image Quality: Good | |Scanner Final Inspector Paper: [place] [employer] | |Scanner Model: GoodApril | |Scanner Serial Number: [id number] | |Scanner Software Platform: 5.3.15.3.1.0 | |Staff: Rodríguez Fortune | |Modality: MR | |Indication Name: routine | |Protocol Name: CMR W Flows WO Contrast | |Findings | |-------- | |Non-cardiac findings were reviewed by Dr. Curtis. | |This exam was terminated prematurely and is lmiited to pattern drafter images. | |There are bilateral pleural effusions. [...] | + + + | Sputum | [facility] [address] [place], [place] | | | [address] | + + + + + | Narrative | + + | Culture Report: This culture has been discontinued. Gram Stain: Squamous | | epithelial cells in the specimen indicate the presence of significant oropharyngeal | | contamination. CRITICAL RESULTS Results called to and verified by: Vicki | | Amy at phone # [facility] on: 10/12/2017 8:10:02 AM PST by: [id number] | + + HEMOGLOBIN A1C, BLOOD (10/11/2017 [...] | + + + | Blood | [facility] IMM + COAG [address] [facility] | | | [place] [address] | + + + + + | Narrative | + + | Alternate forms of testing such as fructosamine should be considered for | | monitoring residential glycemic control in patients with: Increased red cell turnover, | | certain hemoglobinopathies (e.g., HbS, HbE, HbC and thalassemia syndromes), anemias, | | blood loss, chronic liver disease and hemochromatosis (artefactually low HbA1c); iron | | deficiency anemia (artefactually high HbA1c due to enhanced glycation of hemoglobin). | | Alternate forms of testing such as fructosamine should be considered for | | monitoring supervisor long goods glycemic control in patients with: Increased red [...] Laboratory | + + + | | [facility] [address] [place] [address] | | | [place] [address] | + + + + + | Narrative | + + | [facility] Adult Echocardiography Laboratory | | [address] [place], [place] [address] Ph: | | Pt Name: RON MCKEON Study | | Date/Time 10/11/2017 / 11:47:35 AM | | Most recent prior: 03/30/2017 Acc #: [id number] No. previous | | echos: 4 : 1955 61 years Heart Rate: 84 bpm | | Height: 69.0 in Blood Pressure: 115/68 mm/Hg | | Weight: 196.0 lb Gender: M | | BSA: 2.05 m2 Order ID: [id number] | | Lecturer In Marketing: Shahab Sutton [facility] Referring Provider: Kimmy Low Patient | [...] use disorder who presents on transfer from [facility] for consideration of | | complex PCI [...] | Wall Scoring: Report electronically signed by: [id number] Khurram Bedoya MD | | (10/11/2017, 12:59:49 PM) Final (Updated) | + + + + | Procedure Note | + + | Interface, Ecg Results - 10/11/2017 1:00 PM [facility] | | [facility] Echocardiography Laboratory [address] [place] [address] | | [place], [place] [address] Pt Name: RON Chaudhary | | MIKE Study Date/Time 10/11/2017 / 11:47:35 AMMRN: [id number] Most | | recent prior: 03/30/2017Acc #: [id number] No. previous echos: 4DOB: | | 1955 61 years Heart Rate: 84 bpmHeight: 69.0 in Blood | | Pressure: 115/68 mm/HgWeight: 196.0 lb Gender: MBSA: | | 2.05 m2 Order ID: [id number] Lecturer In Marketing: Shahab Sutton RDCSReferring | | Provider: Kimmy [...] use disorder who presents on transfer from [facility] | | for consideration of complex PCI [...] Ao (prox) | | 3.70 cm 18.1 mm/e2Zitanqxgpr of chamber size and geometry is accomplished | | through the incorporation of linear, volumetric, and indexed values Wall Scoring: Report | | electronically signed by: [id number] Khurram Bedoya MD (10/11/2017, 12:59:49 PM) | [...] | | | |Report electronically signed by: [id number] Khurram Bedoya MD (10/11/2017, 12:59:49 | |PM) [...] [facility] CORE [address] | | | [place] [address] | + + + + + | [...] | >60 | >60 mL/min | | FAROESE | | | + +---------+ + | EGFR NON | >60 | >60 mL/min | | -FAROESE | | | + +---------+ + | [...] [facility], CORE [address] | | | [place] [address] | + + + + + | [...] | + + + | Blood | [facility], CORE [address] [facility] | | | [place] [address] | + + + + + | [...]
--- OUTSIDE RECORDS SUMMARY | ~2017-12-04 | XMS | Encounter Summary ---
Demographics + + + | Address | [address] | | | [place] [address] | + + + | Home Phone [...] | | | | | [place] [address] | | + + + + + Care Team Providers + +------+ + | Care Process Owner Name | Role | Phone [...] CENTER | | | | | | [place], [place] | | | | | | [address] | | | | | | [phone] | | | +--------+ + + + [...]
[~2017-12-04 22:03] MED LIST changes: +ARTIFICIAL TEAR15 M5 OU; +LIPITOR80 MG PO; +LISINOPRIL5 MG PO; +MAPAP500 M1 PO; +MELATIN3 MG PO; +METOPROLOL SUCC25 MG PO; +NITROSTAT0.4 MG SL; +NORCO 5-325 TA1 EACH; +PROTONIX40 MG PO; +RANITIDINE HCL300 MG PO; +TOPROL XL25 MG PO; +VITAMIN D50000 UNI1 PO; +ZESTRIL5 MG PO
[2017-12-05] MEDS ORDERED: FUROSEMIDE20 MG PO (01:32)
[2017-12-05] MEDS ORDERED: POTASSIUM CHLO20 ME1 PO (01:32)
--- NOTE | 2017-12-05 10:53 | EKG ---
[facility] [address] [place] [address] Signed Atrial-sensed ventricular-paced rhythm Abnormal ECG When compared with ECG of 13-NOV-2017 01:31, Vent. rate has decreased BY 19 BPM Confirmed by KIMMIE GONZALEZ MD ([id number]) on 12/05/2017 10:52:57 AM Electronically Signed By: KIMMIE GONZALEZ MD 12/05/17 1053 PATIENT NAME: RON MCKEON RACHEL Electrocardiogram DATE OF : 53 PHYSICIAN: KIMIME GONZALEZ MD REPORT #: [id number] REPORT IS CONFIDENTIAL AND NOT TO BE RELEASED WITHOUT AUTHORIZATION
== END 2017-12-05 01:45 | disposition home or self-care (01) ==
LOC: ED 22:03
DX: J81.1 Chronic pulmonary edema (principal); I11.0 Hypertensive heart disease with heart failure; I50.9 Heart failure, unspecified; I25.10 Atherosclerotic heart disease of native coronary artery without angina pectoris; I25.2 Old myocardial infarction; E78.00 Pure hypercholesterolemia, unspecified; Z87.891 Personal history of nicotine dependence; Z79.899 Other long term (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; Z79.84 Long term (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 of oral hypoglycemic drugs; Z79.82 Long term (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
CPT/HCPCS: 71045; 80053; 83735; 83880; 84484; 85025; 93005; 93010; 96374; 99284

== ENCOUNTER 2017-12-16 11:58 | Emergency (ER) | payer OTHER ==
[~2017-12-16] VITALS: Ht 175.3 cm; Wt 93.0 kg
--- OUTSIDE RECORDS SUMMARY | ~2017-12-16 | XMS | Encounter Summary ---
Demographics + + + | Address | [address] | | | [place] [address] | + + + | Home Phone | | + + + | Preferred Language | Unknown | + + + | Marital Status | | + + + | Restorationist Affiliation | Unknown | + + + | Race | Unknown | + + + | Ethnic Group | Unknown | + + + Author + + + | Author | [facility] | | | and [place] | + + + | Organization | [facility] | | | and [place] | + + + | Address | Unknown | + + + | Phone | Unavailable | + + + Support + + + + + | Name | Relationship | Address | Phone | + + + + + | Venice Hood | ECON | [address] | | | | | [address] | | | | | [phone] | | + + + + + Care Team Providers + +------+ + | Care Sound Ranging Crewmember Name | Role | Phone | + +------+ + | Chato Matson MD | PCP | | + +------+ + Reason for Visit Auth/Cert +--------+--------+ + + + + | Status | Reason | Specialty | Diagnoses / | Referred By | Referred To | | | | | Procedures | Contact | Contact | +--------+--------+ + + + + | | | | Diagnoses | | | | | | | Pulmonary | | | | | | | edema Acute | | | | | | | upper GI | | | | | | | bleeding | | | | | | | pulmonary | | | | | | | edema Chest | | | | | | | Pain Acute | | | | | | | upper GI | | | | | | | bleeding | | | | | | | [K92.2] | | | | | | | Procedures | | | | | | | NC | | | | | | | ESOPHAGOGAST | | | | | | | RODUODENOSCO | | | | | | | PY TRANSORAL | | | | | | | DIAGNOSTIC | | | | | | | CV Cor | | | | | | | Angio EGD | | | +--------+--------+ + + + + Encounter Details +--------+ + + + + | Date | Type | Department | Care Team | Description | +--------+ + + + + | 10/03/ | Hospital | [facility] | Herman Masterson MD | NSTEMI (non-ST | | 2018 - | Encounter | [facility] | [address] | elevated myocardial | | | | [address] [place] | [place], [place] | infarction) (HCC); | | 10/10/ | | [place] [address] | [id number] | Ischemic | | 2018 | | [phone] | | cardiomyopathy; | | | | | Destinee Trejo MD | Community acquired | | | | | [address] | pneumonia, | | | | | [place], [place] | unspecified | | | | | [address] [place], | laterality; Acute | | | | | MD Ganga [address] | upper GI bleed; | | | | | [address] [place] | Coronary artery | | | | | [place] [address] | disease involving | | | | | | rincon coronary | | | | | | artery of rincon | | | | | | heart without angina | | | | | | pectoris; Acute | | | | | | respiratory acidosis | +--------+ + + + + Social [...] + + + | Blood Pressure | 116/71 | 10/10/2017718 PST | + + + + | Pulse | 94 | 10/10/2017900 PST | + + + + | Temperature | 36 C (96.8 F) | 10/10/2017718 PST | + + + + | Respiratory Rate | 18 | 10/10/2017900 PST | + + + + | Oxygen Saturation | 95% | 10/10/2017900 PST | + + + + | Inhaled Oxygen | - | - | | Concentration | | | + + + + | Weight | 90.3 kg (199 lb 1.2 | 10/09/2017 0500 PST | | | oz) | | + + + + | Height | - | - | + + + + | Body Mass Index | 28.56 | 10/09/2017 0500 PST | + + + + in this encounter Discharge Summaries Destinee Trejo MD - 10/09/2017 1520 PSTFormatting of this note may be different from the original. DISCHARGE SUMMARY Pt. Name/Age/: Bbo Hood 61 y.o. 1955 Date of Admission: 10/03/2017 Date of Discharge: 10/10/2017 Admitting Physician: Herman Masterson MD PCP: Chato Matson Discharging Physician: Destinee Trejo Consultants: Dr. Mobley (cardiology) Primary Discharge Dx: 1. Acute hypoxic respiratory failure thought to be from septic shock 2/2 Pneumonia/influen za requiring Mechanical vent. s/p extubation on 10/05 2. Acute on chronic systolic CHF exacerbation. Improving. 3. NSTEMI in the setting of known severe ischemic CAD/recent ant wall LA in 03/2017 c/b card iogenic shock s/p ECMO in [facility] 4. Paroxysmal atrial flutter Patient Active Problem List Diagnosis Acute anterior wall LA CAD (coronary 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) Ischemic cardiomyopathy Pulmonary edema Pertinent Diagnostic Info/Data: Recent Results (from the past 48 hour(s)) POC Glucose Collection Time: 10/08/17 16:57 Result Value Ref Range Glucose, POC 96 70 - 109 mg/dL POC Glucose Collection Time: 10/08/17 21:11 Result Value Ref Range Glucose, POC 120 (H) 70 - 109 mg/dL Basic Metabolic Panel Collection Time: 10/09/17 5:05 Result Value Ref Range NA 136 136 - 149 mmol/L K 3.5 3.5 - 5.1 mmol/L CL 105 98 - 109 mmol/L CO2 24 24 - 31 mmol/L ANION GAP 7 3 - 16 mmol/L GLUCOSE 107 70 - 109 mg/dL BUN 26 (H) 7 - 18 mg/dL Creatinine, Serum/Plasma 1.23 0.60 - 1.30 mg/dL eGFR if not 60 >=60 mL/min/1.73m2 CALCIUM 8.2 (L) 8.3 - 10.5 mg/dL BUN/CREA 21.1 Extra Lavender Top Tube Collection Time: 10/09/17 5:05 Result Value Ref Range Extra Lavender Top Tube Done POC Glucose Collection Time: 10/09/17 6:38 Result Value Ref Range Glucose, POC 109 70 - 109 mg/dL POC Glucose Collection Time: 10/09/17 11:55 Result Value Ref Range Glucose, POC 148 (H) 70 - 109 mg/dL POC Glucose Collection Time: 10/09/17 16:59 Result Value Ref Range Glucose, POC 97 70 - 109 mg/dL POC Glucose Collection Time: 10/09/17 20:42 Result Value Ref Range Glucose, POC 125 (H) 70 - 109 mg/dL POC Glucose Collection Time: 10/10/17 6:36 Result Value Ref Range Glucose, POC 108 70 - 109 mg/dL POC Glucose Collection Time: 10/10/17 11:42 Result Value Ref Range Glucose, POC 127 (H) 70 - 109 mg/dL Procedures: C on 10/03- severe in-stent stenosis of left main to ostial LAD stent, severe instent sten osis ostial proximal left circumflex stent, mild to mod RCA disease. Echo 10/03- EF 40%, thinning and severe hypokinesis distal anterior, anterior septal and api annie segments. EGD on 10/05- Inflammation just distal to EG junction, NG tube trauma noted along greater cu rvature, antral gastritis/duodenitis; 2 linear ulcerations along lesser curvature s/p 2 clip s placement; no evidence of active bleeding. Reason for Admission (Brief): He is a 61 y.o.malewith a history of CAD with recent anterior wall LA, post PTCA and st ents of the left main, LAD and LCx on 03/15/17 + left atrial appendage thrombus c/b cardiac sh ock/respiratory failure requiring Tx to [facility]; was on ECMO, who was a transfer this time from [facility] on 10/03 for acute respiratory failure requiring intubation after prese nting with progressively worsening shortness of breath. Hospital Course, including Complications: He was found to have NSTEMI with new LBBB and elevated tropinin and Septic shock thought t o be from pneumonia/influenza; started on ceftriaxone, azithromycin and tamiflu. He underwen t [facility] on 10/03- severe in-stent stenosis of left main to ostial LAD stent, severe instent chery nosis ostial proximal left circumflex stent, mild to mod RCA disease. Echo 10/03- EF 40%, thi nning and severe hypokinesis distal anterior, anterior septal and apical segments. There was concern for UGI bleeding given down trend in H/H and positive gastroccult. S/p EGD on 10/05- Inflammation just distal to EG junction, NG tube trauma noted along greater curvature, antr al gastritis/duodenitis; 2 linear ulcerations along lesser curvature s/p 2 clips placement; no evidence of active bleeding. He was extubated on 10/05. Post extubation, course was compli cated by acute respiratory distress and atrial flutter with RVR. He is now back to sinus rhy thm. He was thought to be in volume overload improving with lasix as needed. O2 weaned from 10 liters to 4 liters over 24 hours. Pneum[address] is resolving. Dr. Mobley discussed with Luz Maria haynes at [facility] but patient refused to go to [place] for re-vascu larization. He preferred to go to [facility]. Dr. Mobley discussed with Dr. Bedoya at [facility] and he was accepted by him. 1. Acute hypoxic respiratory failure thought to be from septic shock 2/2 Pneumonia/influen za requiring Mechanical vent - Improving. Saturating well on RA - s/p extubation on 10/05 - weaning oxygen to Sp02>=94% , saturating 97% on 4 liters NC - continue ceftriaxone D#8/. Completed 5 days of azithromycin and completed tamiflu x 6 days. . - continue BiPAP PRN - continue duonebs - [place] 2. Acute on chronic systolic CHF exacerbation - improving - On lasix PRN - strict I and O, daily weight - BiPAP PRN 3. NSTEMI in the setting of known severe ischemic CAD/recent ant wall LA in 03/2017 c/b card iogenic shock s/p ECMO in [facility] - troponin peaked to 26 - [facility] on 10/03- severe in-stent stenosis of left main to ostial LAD stent, severe instent s tenosis ostial proximal left circumflex stent, mild to mod RCA disease. - Echo 10/03- EF 40%, thinning and severe hypokinesis distal anterior, anterior septal and a pical segments. - continue aspirin, plavix and statin. C/w coreg. - will resume ACEI if creatinine stable. - Dr. Mobley discussed with Cardiology at [facility] and was accepted at [facility] for re-vascularization but patient refused and wanted to be transferred to [facility]. Dr. Mobley discussed with cardiology at [facility] and was accepted by them. - 4. Paroxysmal atrial flutter - amiodarone gtt-->amiodarone 400mg PO bid --> 200mg PO daily on 10/09. - continue with aspirin, plavix and coreg - keep K>=4, Mg >=2 Medications Reconciled upon Discharge are: Discharge Medications New Medications Details albuterol-ipratropium 2.5-0.5 mg/3 mL Soln Take 3 mLs by nebulization Every 4 hours. aka: DUONEB amiodarone 200 mg tablet Take 1 tablet by mouth Daily. aka: PACERONE carvedilol 3.125 mg tablet Take 1 tablet by mouth 2 times daily (with breakfast & dinner). aka: COREG cefTRIAXone (ROCEPHIN) 2 g in sodium chloride 0.9% 50 mL IVPB Inject 2 g into the vein every 24 hours. Indications: Community Acquired Pneumonia HYDROcodone-acetaminophen 5-325 mg per tablet Take 1-2 tablets by mouth every 4 hours as needed for Pain (Pain). aka: NORCO insulin lispro 100 units/mL injection (pen) Inject 0-6 Units under the skin 4 times daily (with meals and nightly). aka: humaLOG KWIKPEN nitroglycerin 0.[address] 1 tablet under the tongue every 5 minutes as needed for Chest pain. aka: NITROSTAT nystatin powder Genital region aka: MYCOSTATIN pantoprazole 40 mg tablet Take 1 tablet by mouth 2 times daily (before meals). aka: PROTONIX Unchanged Medications Details aspirin 81 MG tablet Take 81 mg by mouth Daily. atorvaSTATin 40 mg tablet Take 40 mg by mouth nightly. aka: LIPITOR clopidogrel 75 mg tablet Take 1 tablet by mouth Daily. aka: PLAVIX Discontinued Medications gabapentin 300 mg capsule aka: NEURONTIN lisinopril 5 mg tablet aka: PRINIVIL, ZESTRIL metFORMIN 500 mg tablet aka: GLUCOPHAGE raNITIdine 300 MG tablet aka: ZANTAC traMADol 50 mg tablet aka: ULTRAM Reason for major medication changes in hospital: Condition on Discharge: Stable Vital Signs: Temp: 36 C (96.8 F) BP: 116/71 Pulse: 94 Resp: 18 SpO2: 95 % Min/Max Temp past 24 hours:Temp Av.2 C (97.2 F) Min: 35.9 C (96.6 F) Max: 3 6.8 C (98.2 F) Intake/Output Summary (Last 24 hours) at 10/10/17 1501 Last data filed at 10/10/17 1400 Gross per 24 hour Intake 240 ml Output 1275 ml Net -1035 ml Last Wt. Before discharge: Weight: 90.3 kg (199 lb 1.2 oz) Pending study results on DC: None Disposition: Transfer to [facility] cardiology service Dr. Bedoya accepting physician Discharge Procedure Orders Transfer patient to other facility Order Comments: [facility] when bed is available. Code Status/Advance Directive (Pertinent discussions/declarations): Full Code Time spent on Discharge and Coordination of post-hospital care: >30 minutes Electronically signed by: Destinee Trejo, 10/10/2017 15:01 [facility] in this encounter Medications at Time of Discharge + + + +---------+ + + | Medication | Sig. | Disp. | Refills | Start | End Date | | | | | | Date | | + + + +---------+ + + | aspirin 81 MG | Take 81 mg by mouth | | | | | | tablet | Daily. | | | | | + + + +---------+ + + | clopidogrel | Take 1 tablet by | 90 | 3 | 06/23/20 | | | (PLAVIX) 75 mg | mouth Daily. | tablet | | 17 | | | tablet | | | | | | + + + +---------+ + + | | Take 1-2 tablets by | | 0 | 10/09/19 | | | HYDROcodone-acetamin | mouth every 4 hours | | | 18 | | | ophen (NORCO) 5-325 | as needed for Pain | | | | | | mg per tablet | (Pain). | | | | | + + + +---------+ + + | nitroglycerin | Place 1 tablet under | | 0 | 10/09/19 | | | (NITROSTAT) 0.4 mg | the tongue every 5 | | | 18 | | | SL tablet | minutes as needed | | | | | | | for Chest pain. | | | | | + + + +---------+ + + | nystatin | Genital region | | | 10/09/19 | | | (MYCOSTATIN) powder | | | | 18 | | + + + +---------+ + + | | Take 3 mLs by | 360 mL | | 10/09/19 | | | albuterol-ipratropiu | nebulization Every 4 | | | 18 | 8 | | m (DUONEB) 2.5-0.5 | hours. | | | | | | mg/3 mL SOLN | | | | | | + + + +---------+ + + | amiodarone | Take 1 tablet by | 60 | | 10/10/19 | | | (PACERONE) 200 mg | mouth Daily. | tablet | | 18 | 8 | | tablet | | | | | | + + + +---------+ + + | atorvaSTATin | Take 40 mg by mouth | | | 04/02/20 | | | (LIPITOR) 40 mg | nightly. | | | 17 | 8 | | tablet | | | | | | + + + +---------+ + + | carvedilol (COREG) | Take 1 tablet by | 60 | | 10/09/19 | | | 3.125 mg tablet | mouth 2 times daily | tablet | | 18 | 8 | | | (with breakfast & | | | | | | | dinner). | | | | | + + + +---------+ + + | cefTRIAXone | Inject 2 g into the | | | 10/10/19 | | | (ROCEPHIN) 2 g in | vein every 24 hours. | | | 18 | 8 | | sodium chloride 0.9% | Indications: | | | | | | 50 mL | Community Acquired | | | | | | IVPBIndications: | Pneumonia | | | | | | Community Acquired | | | | | | | Pneumonia | | | | | | + + + +---------+ + + | insulin lispro | Inject 0-6 Units | | 0 | 10/09/19 | | | (HUMALOG KWIKPEN) | under the skin 4 | | | 18 | 8 | | 100 units/mL | times daily (with | | | | | | injection (pen) | meals and nightly). | | | | | + + + +---------+ + + | pantoprazole | Take 1 tablet by | 30 | | 10/09/19 | | | (PROTONIX) 40 mg | mouth 2 times daily | tablet | | 18 | 8 | | tablet | (before meals). | | | | | + + + +---------+ + + as of this encounter Progress Notes Rhea Oneal RN - 10/10/2017 1555 PSTCalled KSMENDY, RN informed that Lotus Guillermina to call back this RN, phone number given. Electronically signed by: Rhea Ventura RN 10/10/2017 15:58 Rhea Oneal RN - 10/10/2017 1359 PSTPatient called RN to bedside, patient to g o to [facility], wants to get better and do the procedure. RN to inform MD Electronically signed b y: Rhea Ventura RN 10/10/2017 14:00 Rhea Oneal RN - 10/10/2017 [address] Jason at bedside to explain to the patient about leaving against medical advice, wallace ent verbalizing that we have done many interventions and that it is not a safe choice. RN at bedside, patient understands consequences and that he is leaving against medical advice. El ectronically signed by: Rhea Ventura RN 10/10/2017 13:08 Delmer Mobley MD - 10/09/2017 1459 PSTFormatting of this note may be different from alie ceron. PATIENT NAME: Bob Hood : 1955: AGE: 61 y.o. ADMISSION DATE: 10/03/2017 HOSPITAL DAY NUMBER: [id number] PRIMARY CARE: Chato Matson MD CARDIOLOGY PROGRESS NOTE Patient feels much improved with no complaints of chest pain. He is bringing up sputum eliza t is ranged in color from reddish brown to clear. He remains afebrile. Blood pressure has been stable. He remains in sinus rhythm. The patient will be transferred today to [facility] for coronary revascularization. MEDICATIONS: Current Facility-Administered Medications Medication Dose Route Frequency Provider Last Rate Last Dose albuterol-ipratropium (DUONEB) 2.5-0.5 mg/3 mL nebulizer solution 3 mL 3 mL Nebulizati on RT Q4H Clinton Burnett MD 3 mL at 10/09/17 1225 amiodarone (PACERONE) tablet 400 mg 400 mg Oral BID Shristi Kunwar, MD 400 mg at 10/25 0908 aspirin chewable tablet 81 mg 81 mg Per OG Tube Daily Ganga Lind MD 81 mg at 0 10/09/17 0908 atorvaSTATin (LIPITOR) tablet 40 mg 40 mg Per OG Tube Daily Ganga Lind MD 40 m g at 10/09/17 0908 carvedilol (COREG) tablet 3.125 mg 3.125 mg Oral BID Destinee Trejo MD 3.125 mg at 10/09/17 0740 cefTRIAXone (ROCEPHIN) 2 g in sodium chloride 0.9% 50 mL IVPB 2 g Intravenous Daily An hilda Lind MD 100 mL/hr at 10/09/17 1021 2 g at 10/09/17 1021 clopidogrel (PLAVIX) tablet 75 mg 75 mg Per OG Tube Daily Ganga Lind MD 75 mg at 10/09/17 0908 dextrose 50% injection 12.5 g 12.5 g Intravenous PRN Ganga Lind MD heparin 5,000 units/mL injection 5,000 Units 5,000 Units Subcutaneous 2 times per day Destinee Trejo MD 5,000 Units at 10/09/17 0908 HYDROcodone-acetaminophen (NORCO) 5-325 mg per tablet 1-2 tablet 1-2 tablet Oral Q4H P RN Clinton Burnett MD 2 tablet at 10/09/17 1450 insulin lispro (humaLOG KWIKPEN) 100 units/mL injection (pen) 0-6 Units 0-6 Units Subc utaneous 4x Daily WC and HS Ganga Lind MD nitroglycerin (NITROSTAT) SL tablet 0.4 mg 0.4 mg Sublingual Q5 Min PRN Delmer Dai MD nystatin (MYCOSTATIN) powder Topical BID Destinee Trejo MD pantoprazole (PROTONIX) DR tablet 40 mg 40 mg Oral BID KELLY Graham PharmD 40 m g at 10/09/17 0634 ALLERGIES No Known Allergies PHYSICAL EXAM Vital signs: Vitals: 10/09/17 1248 BP: Pulse: 89 Resp: 18 Temp: Admit Weight: Weight: 97 kg (213 lb 13.5 oz) Current weight: Weight: 90.3 kg (199 lb 1. 2 oz) Body mass index is 28.56 kg/m. General: Alert, resting comfortably Chest: Slight decreased breath sounds, no crackles Cardiovascular: Regular rhythm, no S3 Gastrointestinal: Abdomen soft, non-tender, normal bowel sounds Extremities: No edema Neuro: within normal LABS: Admission on 10/03/2017 No results displayed because visit has over 200 results. IMAGING: Xr Chest Ap Portable Result Date: 10/07/2017 EXAM: XR CHEST AP PORTABLE dated 10/07/2017 3:31 AM HISTORY: hypoxia Comparison: October 06 and October 05, 2017 TECHNIQUE: A single portable view of the chest. FINDINGS: The lungs are symmetrically aerated. Interval progression of interstitial and airspace opacities. Air b ronchograms in the left lower lung. These are symmetric in the left lung but diffusely thro ughout both lungs. No large pleural effusion. No pneumothorax. The cardiac and mediastina l contours are not enlarged. No visible acute osseous abnormalities. IMPRESSION - Progressi ve interstitial and airspace opacities. These could be due to cardiogenic or noncardiogenic pulmonary edema. These could be due to atypical pneumonia. The findings could be related to a combined pathology. Dictated and Signed by: Terry Swift MD Electronically signed: 10/07/2017 9:11 AM Xr Chest Ap Portable Result Date: 10/06/2017 EXAM: XR CHEST AP PORTABLE dated 10/06/2017 6:09 AM HISTORY: pneumonia Comparison: Chest x-r ays dating to October 03, 1999 TECHNIQUE: A single portable view of the chest. FINDINGS: Int erval decrease in interstitial and airspace opacities bilaterally. These are not resolved. No pneumothorax. No large pleural effusion. Stable mild cardiomegaly. IMPRESSION - Interv al decrease in interstitial and airspace opacities bilaterally. Dictated and Signed by: Anthony Swift MD Electronically signed: 10/06/2017 8:34 AM Xr Chest Ap Portable Result Date: 10/05/2017 SINGLE AP CHEST 10/05/2017 3:23 PM CLINICAL HISTORY: increased o2 demand COMPARISON: Radiogr aphy from earlier in the day and more remote exams FINDINGS: The endotracheal and esophagoga stric tubes have been removed. Cardiomediastinal silhouette is unremarkable. There is new p atchy reticular opacity in the left mid-upper lung and right mid lung, with increased patchy opacity at the right base. Left basilar aeration is somewhat improved although patchy opac ity is visible in this region as well. No pneumothorax or pleural effusion is evident. Bon es and soft tissues are unremarkable. IMPRESSION - 1. NEW PATCHY RETICULAR OPACITY INVOLVI NG PORTIONS OF BOTH LUNGS FOLLOWING EXTUBATION. THIS COULD REFLECT PULMONARY EDEMA OR MASSI VE ASPIRATION. Dictated and Signed by: Jai De La Rosa MD Electronically signed: 10/05/2017 8:4 6 PM Xr Chest Ap Portable Result Date: 10/05/2017 SINGLE AP CHEST 10/05/2017 5:28 AM CLINICAL HISTORY: resp failure COMPARISON: Radiography fr om the previous day and more remote exams FINDINGS: The endotracheal tube remains in positio n, terminating approximately 4.5 cm above the tanya. Esophagogastric tube again passes int o the imaged left upper abdomen. The cardiomediastinal silhouette and pulmonary vasculature are otherwise unremarkable. There is persistent dense opacity at the medial left base. Mi ld hazy reticular opacity elsewhere in the lung bases is similar in extent. The upper lung [place] are clear. No pneumothorax or pleural effusion is visible. Bones and soft tissues a re unremarkable. IMPRESSION - 1. ENDOTRACHEAL TUBE 4.5 CM ABOVE THE TANYA. 2. STABLE BIB ASILAR OPACITIES DISCUSSED. Dictated and Signed by: Jai De La Rosa MD Electronically dave d: 10/05/2017 8:44 PM Xr Chest Ap Portable Result Date: 10/05/2017 EXAM: XR CHEST AP PORTABLE dated 10/04/2017 7:03 PM HISTORY: acute respiratory failure Leonides rison: October 03, 2017 TECHNIQUE: A single portable view of the chest. FINDINGS: Persistent the lower lobe parenchymal opacities. Endotracheal tube is in place. The tip is approxima tely 5 cm above the tanya. There is an enteric tube coursing below diaphragm with the tip not seen. The cardiac and mediastinal contours are stable. Blunting of the left costophren ic angle could be effusion. No pneumothorax. IMPRESSION - Persistent basilar opacities and possible left pleural effusion. No significant change in support lines or tubes. Dictated an d Signed by: Terry Swift MD Electronically signed: 10/05/2017 9:50 AM Xr Chest Ap Portable Result Date: 10/03/2017 CLINICAL INFORMATION: Eval for acute hypoxic respiratory failure. COMPARISON: 03/15/2017. JUSTIN MOE: Portable frontal chest radiograph. Endotracheal tube approximately 4.8 cm from the ca sherron. Enteric tube projecting below the left hemidiaphragm, tip not seen. Side port is note d at the level of the gastric fundus. Lungs: Mixed interstitial and alveolar opacities are n oted predominantly at the mid to lower lungs. Mild interstitial thickening noted throughout the perihilar regions. No pleural effusion or pneumothorax. Heart/mediastinum: Cardiac carlos houette is of normal size. No mediastinal widening. Bones: No acute osseous abnormality appr eciated. IMPRESSION - Tubes as above. Mixed interstitial and alveolar opacities predominantl y at the mid to lower lungs, may reflect pulmonary edema versus atypical infectious process. Dictated and Signed by: Alin Ramírez MD Electronically signed: 10/03/2017 12:41 PM DIAGNOSES AND ASSESSMENTS: 1. Acute hypoxic respiratory failure in setting of fever, leukocytosis, hypotension, proba ble septic shock: Patient Is Clinically Improved and hemodynamically stable. 2. Acute non-ST elevation myocardial infarction in setting of left bundle branch block, se frannie left main bifurcation in-stent stenosis involving left circumflex and LAD: Patient will need coronary revascularization either CABG versus complex redo PCI. Patient continues on dual antiplatelet therapy since his initial stent procedure in March 2017. 3. Recurrent atrial flutter: Patient remains in sinus rhythm on amiodarone PLAN OR RECOMMENDATIONS: Transfer to [facility] audiology service Dr. Segura accepting physician I appreciate the opportunity of participating in the care of this patient. Delmer Mobley MD, 10/09/2017 15:00 Destinee Trejo MD - 10/09/2017 0816 PSTFormatting of this note may be different from the original. [facility] Hospitalist Progress Note Bob Hood is a 61 y.o. male INTERVAL HPI: He is a 61 y.o. male with a history of CAD with recent anterior wall LA, post PTCA and sten ts of the left main, LAD and LCx on 03/15/17 + left atrial appendage thrombus c/b cardiac shoc k/respiratory failure [facility] [facility]; was on ECMO, who was a transfer this time from [facility] on 10/03 for acute respiratory failure requiring intubation after present ing with progressively worsening shortness of breath. He was found to have NSTEMI with new L BBB and elevated tropinin and Septic shock thought to be from pneumonia/influenza; started o n ceftriaxone, azithromycin and tamiflu. He underwent LHC on 10/03- severe in-stent stenosis of left main to ostial LAD stent, severe instent stenosis ostial proximal left circumflex st ent, mild to mod RCA disease. Echo 10/03- EF 40%, thinning and severe hypokinesis distal ante rior, anterior septal and apical segments. There was concern for UGI bleeding given down saúl nd in H/H and positive gastroccult. S/p EGD on 10/05- Inflammation just distal to EG junction , NG tube trauma noted along greater curvature, antral gastritis/duodenitis; 2 linear ulcera tions along lesser curvature s/p 2 clips placement; no evidence of active bleeding. He was e xtubated on 10/05. Post extubation, course was complicated by acute respiratory distress and atrial flutter with RVR. He is now back to sinus rhythm SUBJECTIVE: No acute issues overnight. Denies any chest pain, shortness of breath. He says he slept wel l last night and feels much better. VITALS: Temp: 36.3 C (97.3 F), Pulse: 81, Resp: 12, BP: 106/66, SpO2 93 % on nasal cannula with humidification at flow rate 3L/min Temp Min: 36.3 C (97.3 F) Max: 37.2 C (99 F) Weight: 97 kg (213 lb 13.5 oz) Intake/Output Summary (Last 24 hours) at 10/09/17 0816 Last data filed at 10/09/17 0100 Gross per 24 hour Intake 520 ml Output 1275 ml Net -755 ml PHYSICAL EXAM: Gen Ernestine - alert, cooperative and not in acute distress Head - Normocephalic, without obvious abnormality Eyes - PERRL, conjunctiva/corneas clear ENT - mucous membranes moist Neck - supple Lungs - lungs clear Heart - S1S2 heard Abdomen - soft, non-tender, without masses or organomegaly Extremities - no peripheral edema, no clubbing or cyanosis Skin - erythema over bilateral groin and scrotum. Neurologic - Alert and oriented X3. No focal deficit clinically DIAGNOSTIC STUDIES: Available data and images were reviewed personally. Significant results and findings are a ddressed here or in the Assessment and Plan. Recent Results (from the past 24 hour(s)) POC Glucose Result Value Ref Range Glucose, POC 146 (H) 70 - 109 mg/dL POC Glucose Result Value Ref Range Glucose, POC 96 70 - 109 mg/dL POC Glucose Result Value Ref Range Glucose, POC 120 (H) 70 - 109 mg/dL Basic Metabolic Panel Result Value Ref Range NA 136 136 - 149 mmol/L K 3.5 3.5 - 5.1 mmol/L CL 105 98 - 109 mmol/L CO2 24 24 - 31 mmol/L ANION GAP 7 3 - 16 mmol/L GLUCOSE 107 70 - 109 mg/dL BUN 26 (H) 7 - 18 mg/dL Creatinine, Serum/Plasma 1.23 0.60 - 1.30 mg/dL eGFR if not 60 >=60 mL/min/1.73m2 CALCIUM 8.2 (L) 8.3 - 10.5 mg/dL BUN/CREA 21.1 POC Glucose Result Value Ref Range Glucose, POC 109 70 - 109 mg/dL No results found. Current Facility-Administered Medications: albuterol-ipratropium 3 mL Nebulization RT Q4H amiodarone 400 mg Oral BID aspirin 81 mg Per OG Tube Daily atorvaSTATin 40 mg Per OG Tube Daily carvedilol 3.125 mg Oral BID WC cefTRIAXone 2 g Intravenous Daily clopidogrel 75 mg Per OG Tube Daily dextrose 12.5 g Intravenous PRN heparin 5,000 Units Subcutaneous 2 times per day HYDROcodone-acetaminophen 1-2 tablet Oral Q4H PRN insulin lispro 0-6 Units Subcutaneous 4x Daily WC and HS lidocaine 1%-EPINEPHrine 1:100,000 5 mL Infiltration Once PRN nitroglycerin 0.4 mg Sublingual Q5 Min PRN nystatin Topical BID pantoprazole 40 mg Oral BID AC ASSESSMENT and PLAN: Active Hospital Problems Diagnosis Pulmonary edema Ischemic cardiomyopathy CAD (coronary 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) Resolved Hospital Problems Diagnosis Date Noted Date Resolved No resolved problems to display. 1. Acute hypoxic respiratory failure thought to be from septic shock 2/2 Pneumonia/influen za requiring Mechanical vent - Improving - s/p extubation on 10/05 - weaning oxygen to Sp02>=94% , saturating 97% on 4 liters NC - continue ceftriaxone D#7. Completed 5 days of azithromycin and tamiflu on 10/08 - continue BiPAP PRN - continue duonebs - Acappella 2. Acute on chronic systolic CHF exacerbation - improving - On lasix PRN - strict I and O, daily weight - BiPAP PRN 3. NSTEMI in the setting of known severe ischemic CAD/recent ant wall LA in 03/2017 c/b card iogenic shock s/p ECMO in [facility] - troponin peaked to 26 - [facility] on 10/03- severe in-stent stenosis of left main to ostial LAD stent, severe instent s tenosis ostial proximal left circumflex stent, mild to mod RCA disease. - Echo 10/03- EF 40%, thinning and severe hypokinesis distal anterior, anterior septal and a pical segments. - continue aspirin, plaxix and statin. C/w coreg. - will resume ACEI if creatinine stable. - Dr. Mobley will consult with cardiology team at [facility] Re: planning for revascularization today 4. Paroxysmal atrial flutter - amiodarone gtt-->amiodarone 400mg PO bid for 7 days then 200mg PO daily. - continue with aspirin, plavix and coreg - keep K>=4, Mg >=2 DVT Prophylaxis: SCD's while in bed + heparin sub q Diet: Heart healthy Lines: PIV Code Status: Full Code. Disposition: pending clinically course . Okay to transfer to medical floor with telemetry Total time of approximately 30 minutes was spent with the patient and/or patient's family, and/or on the patient's floor/unit, of which more than 50% was spent counseling and/or coord ination the patient's care as outlined above. Destinee Trejo 10/09/2017 8:16 [facility] Destinee Trejo MD - 10/08/2017 1220 PSTFormatting of this note may be different from the original. [facility] Hospitalist Progress Note Bob Hood is a 61 y.o. male INTERVAL HPI: He is a 61 y.o. male with a history of CAD with recent anterior wall LA, post PTCA and sten ts of the left main, LAD and LCx on 03/15/17 + left atrial appendage thrombus c/b cardiac shoc k/respiratory failure requiring Tx to [facility]; was on ECMO, who was a transfer this time from [facility] on 10/03 for acute respiratory failure requiring intubation after present ing with progressively worsening shortness of breath. He was found to have NSTEMI with new L BBB and elevated tropinin and Septic shock thought to be from pneumonia/influenza; started o n ceftriaxone, azithromycin and tamiflu. He underwent LHC on 10/03- severe in-stent stenosis of left main to ostial LAD stent, severe instent stenosis ostial proximal left circumflex st ent, mild to mod RCA disease. Echo 10/03- EF 40%, thinning and severe hypokinesis distal ante rior, anterior septal and apical segments. There was concern for UGI bleeding given down saúl nd in H/H and positive gastroccult. S/p EGD on 10/05- Inflammation just distal to EG junction , NG tube trauma noted along greater curvature, antral gastritis/duodenitis; 2 linear ulcera tions along lesser curvature s/p 2 clips placement; no evidence of active bleeding. He was e xtubated on 10/05. Post extubation, course was complicated by acute respiratory distress and atrial flutter with RVR. He is now back to sinus rhythm SUBJECTIVE: No acute issues overnight. Was on BiPAP at night. Denies any chest pain, shortness of breat h. Complains redness over genital area. VITALS: Temp: 36.5 C (97.7 F), Pulse: 81, Resp: 17, BP: 103/54, SpO2 94 % on high-flow nasal ca nnula, heated, radiography technician system at flow rate 14L/min Temp Min: 36.4 C (97.5 F) Max: 37.4 C (99.4 F) Weight: 97 kg (213 lb 13.5 oz) Intake/Output Summary (Last 24 hours) at 10/08/17 1220 Last data filed at 10/08/17 1115 Gross per 24 hour Intake 390 ml Output 1975 ml Net -1585 ml PHYSICAL EXAM: Gen Ernestine - alert, cooperative and mild dyspnea Head - Normocephalic, without obvious abnormality Eyes - PERRL, conjunctiva/corneas clear ENT - mucous membranes moist Neck - supple Lungs - mild basal crackles Heart - S1S2 heard Abdomen - soft, non-tender, without masses or organomegaly Extremities - no peripheral edema, no clubbing or cyanosis Skin - erythema over bilateral groin and scrotum. Neurologic - Alert and oriented X3. No focal deficit clinically DIAGNOSTIC STUDIES: Available data and images were reviewed personally. Significant results and findings are a ddressed here or in the Assessment and Plan. Recent Results (from the past 24 hour(s)) POC Glucose Result Value Ref Range Glucose, POC 110 (H) 70 - 109 mg/dL POC Glucose Result Value Ref Range Glucose, POC 115 (H) 70 - 109 mg/dL POC Glucose Result Value Ref Range Glucose, POC 99 70 - 109 mg/dL POC Glucose Result Value Ref Range Glucose, POC 146 (H) 70 - 109 mg/dL Xr Chest Ap Portable Result Date: 10/07/2017 EXAM: XR CHEST AP PORTABLE dated 10/07/2017 3:31 AM HISTORY: hypoxia Comparison: October 06 and October 05, 2017 TECHNIQUE: A single portable view of the chest. FINDINGS: The lungs are symmetrically aerated. Interval progression of interstitial and airspace opacities. Air b ronchograms in the left lower lung. These are symmetric in the left lung but diffusely thro ughout both lungs. No large pleural effusion. No pneumothorax. The cardiac and mediastina l contours are not enlarged. No visible acute osseous abnormalities. IMPRESSION - Progressi ve interstitial and airspace opacities. These could be due to cardiogenic or noncardiogenic pulmonary edema. These could be due to atypical pneumonia. The findings could be related to a combined pathology. Dictated and Signed by: Terry Swift MD Electronically signed: 10/07/2017 9:11 AM Current Facility-Administered Medications: albuterol-ipratropium 3 mL Nebulization RT Q4H amiodarone 400 mg Oral BID aspirin 81 mg Per OG Tube Daily atorvaSTATin 40 mg Per OG Tube Daily carvedilol 3.125 mg Oral BID WC cefTRIAXone 2 g Intravenous Daily clopidogrel 75 mg Per OG Tube Daily dextrose 12.5 g Intravenous PRN furosemide 40 mg Oral Daily heparin 5,000 Units Subcutaneous 2 times per day HYDROcodone-acetaminophen 1-2 tablet Oral Q4H PRN insulin lispro 0-6 Units Subcutaneous 4x Daily WC and HS lidocaine 1%-EPINEPHrine 1:100,000 5 mL Infiltration Once PRN nitroglycerin 0.4 mg Sublingual Q5 Min PRN nystatin Topical BID pantoprazole 40 mg Oral BID AC potassium chloride 10 mEq Oral BID ASSESSMENT and PLAN: Active Hospital Problems Diagnosis Pulmonary edema Ischemic cardiomyopathy CAD (coronary 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) Resolved Hospital Problems Diagnosis Date Noted Date Resolved No resolved problems to display. 1. Acute hypoxic respiratory failure thought to be from septic shock 2/2 Pneumonia/influen za requiring Mechanical vent - Improving - s/p extubation on 10/05 - weaning oxygen to Sp02>=94% - continue ceftriaxone D#5/. Stop azithromycin and tamiflu. - continue BiPAP at night and PRN - continue duonebs - Acappella 2. Acute on chronic systolic CHF exacerbation - improving - start lasix 40 mg PO daily - strict I and O, daily weight - BiPAP hs and PRN 3. NSTEMI in the setting of known severe ischemic CAD/recent ant wall LA in 03/2017 c/b card iogenic shock s/p ECMO in [facility] - troponin peaked to 26 - [facility] on 10/03- severe in-stent stenosis of left main to ostial LAD stent, severe instent s tenosis ostial proximal left circumflex stent, mild to mod RCA disease. - Echo 10/03- EF 40%, thinning and severe hypokinesis distal anterior, anterior septal and a pical segments. - continue aspirin, plaxix and statin. Will switch metoprolol to coreg. - will resume ACEI if creatinine stable. - Dr. Mobley will consult with cardiology team at [facility] Re: planning for revascularization today 4. Paroxysmal atrial flutter - amiodarone gtt-->amiodarone 400mg PO bid - continue with aspirin, plavix and coreg - keep K>=4, Mg >=2 DVT Prophylaxis: SCD's while in bed + heparin sub q Diet: Heart healthy Lines: PIV Code Status: Full Code. Disposition: pending clinically course Total time of approximately 35 minutes was spent with the patient and/or patient's family, and/or on the patient's floor/unit, of which more than 50% was spent counseling and/or coord ination the patient's care as outlined above. Destinee Trejo 10/08/2017 12:20 [facility] Destinee Trejo MD - 10/07/2017 4286 PSTFormatting of this note may be different from the original. [facility] PMG Hospitalist Progress Note Bob Hood is a 61 y.o. male INTERVAL HPI: He is a 61 y.o. male with a history of CAD with recent anterior wall LA, post PTCA and sten ts of the left main, LAD and LCx on 03/15/17 + left atrial appendage thrombus c/b cardiac shoc k/respiratory failure requiring Tx to [facility]; was on ECMO, who was a transfer this time from [facility] on 10/03 for acute respiratory failure requiring intubation after present ing with progressively worsening shortness of breath. He was found to have NSTEMI with new L BBB and elevated tropinin and Septic shock thought to be from pneumonia/influenza; started o n ceftriaxone, azithromycin and tamiflu. He underwent LHC on 10/03- severe in-stent stenosis of left main to ostial LAD stent, severe instent stenosis ostial proximal left circumflex st ent, mild to mod RCA disease. Echo 10/03- EF 40%, thinning and severe hypokinesis distal ante rior, anterior septal and apical segments. There was concern for UGI bleeding given down saúl nd in H/H and positive gastroccult. S/p EGD on 10/05- Inflammation just distal to EG junction , NG tube trauma noted along greater curvature, antral gastritis/duodenitis; 2 linear ulcera tions along lesser curvature s/p 2 clips placement; no evidence of active bleeding. He was e xtubated on 10/05. Post extubation, course was complicated by acute respiratory distress and atrial flutter with RVR. SUBJECTIVE: Later in the evening yesterday, he went back into atrial flutter with RVR when he was havin g bowel movement. Overnight, when into acute respiratory distress again requring BiPAP. Received 40mg IV lasi x and IVF was stopped. This morning, he feels better, still requiring 14 liters of oxygen. D enies any chest pain. VITALS: Temp: 36.4 C (97.5 F), Pulse: 91, Resp: 13, BP: 103/62, SpO2 97 % on high-flow nasal ca nnula, heated at flow rate 14L/min Temp Min: 36.3 C (97.3 F) Max: 37.5 C (99.5 F) Weight: 97 kg (213 lb 13.5 oz) Intake/Output Summary (Last 24 hours) at 10/07/17 1438 Last data filed at 10/07/17 1301 Gross per 24 hour Intake 750 ml Output 1750 ml Net -1000 ml PHYSICAL EXAM: Gen Ernestine - alert, cooperative and mild dyspnea Head - Normocephalic, without obvious abnormality Eyes - PERRL, conjunctiva/corneas clear ENT - mucous membranes moist Neck - supple Lungs - mild b/l crackles, rhonchi Heart - S1S2 heard Abdomen - soft, non-tender, without masses or organomegaly Extremities - no peripheral edema, no clubbing or cyanosis Skin - no rashes Neurologic - Alert and oriented X3. No focal deficit clinically DIAGNOSTIC STUDIES: Available data and images were reviewed personally. Significant results and findings are a ddressed here or in the Assessment and Plan. Recent Results (from the past 24 hour(s)) POC Glucose Result Value Ref Range Glucose, POC 130 (H) 70 - 109 mg/dL Troponin I Result Value Ref Range Troponin I 5.64 (HH) <0.06 ng/mL POC Glucose Result Value Ref Range Glucose, POC 101 70 - 109 mg/dL POC Glucose Result Value Ref Range Glucose, POC 105 70 - 109 mg/dL POC Blood Gases Result Value Ref Range Specimen Source Artery pH, POC 7.398 7.3 - 7.45 HCO3, POC 19.3 (L) 21.0 - 28.0 mmol/L TCO2, POC 20.3 (L) 22.0 - 29.0 mmol/L Base Excess, POC -4.2 (L) -2.0 - 3.0 mmol/L Base Excess, Extracellular fluid, POC -5.5 (L) -2.0 - 3.0 mmol/L O2 Sat, POC 96 90 - 100 % PCO2, POC 31.3 (L) 35.0 - 50.0 mmHg PO2, POC 78.4 (H) 25.0 - 50.0 mmHg CBC with Differential Result Value Ref Range WBC 10.9 4.0 - 11.0 K/uL RBC 4.81 4.30 - 5.70 M/uL Hgb 14.3 13.5 - 18.0 g/dL Hct 43.3 40.0 - 51.0 % MCV 89.9 83.0 - 101.0 fL MCH 29.7 28.0 - 35.0 pg MCHC 33.0 32.0 - 36.0 g/dL RDW-CV 15.3 (H) <15.0 % Platelet Count 178 140 - 440 K/uL MPV 8.5 fL % Neutrophils 80.5 45.0 - 82.0 % % Lymphocytes 10.6 (L) 20.0 - 45.0 % % Monocytes 7.1 4.0 - 12.0 % % Eosinophils 1.5 0.0 - 5.0 % % Basophils 0.3 0.0 - 1.0 % Absolute Neutrophils 8.80 (H) 1.80 - 8.50 K/uL Absolute Lymphocytes 1.20 0.60 - 3.20 K/uL Absolute Monocytes 0.80 0.00 - 1.00 K/uL Absolute Eosinophils 0.20 0.00 - 0.40 K/uL Absolute Basophils 0.00 0.00 - 0.10 K/uL Basic Metabolic Panel Result Value Ref Range NA 141 136 - 149 mmol/L K 3.7 3.5 - 5.1 mmol/L CL 109 98 - 109 mmol/L CO2 20 (L) 24 - 31 mmol/L ANION GAP 12 3 - 16 mmol/L GLUCOSE 198 (H) 70 - 109 mg/dL BUN 23 (H) 7 - 18 mg/dL Creatinine, Serum/Plasma 1.29 0.60 - 1.30 mg/dL eGFR if not 56 (L) >=60 mL/min/1.73m2 CALCIUM 8.0 (L) 8.3 - 10.5 mg/dL BUN/CREA 17.8 Magnesium Result Value Ref Range MG 1.9 1.8 - 2.5 mg/dL POC Glucose Result Value Ref Range Glucose, POC 104 70 - 109 mg/dL POC Glucose Result Value Ref Range Glucose, POC 114 (H) 70 - 109 mg/dL Xr Chest Ap Portable Result Date: 10/07/2017 EXAM: XR CHEST AP PORTABLE dated 10/07/2017 3:31 AM HISTORY: hypoxia Comparison: October 06 and October 05, 2017 TECHNIQUE: A single portable view of the chest. FINDINGS: The lungs are symmetrically aerated. Interval progression of interstitial and airspace opacities. Air b ronchograms in the left lower lung. These are symmetric in the left lung but diffusely thro ughout both lungs. No large pleural effusion. No pneumothorax. The cardiac and mediastina l contours are not enlarged. No visible acute osseous abnormalities. IMPRESSION - Progressi ve interstitial and airspace opacities. These could be due to cardiogenic or noncardiogenic pulmonary edema. These could be due to atypical pneumonia. The findings could be related to a combined pathology. Dictated and Signed by: Terry Swift MD Electronically signed: 10/07/2017 9:11 AM Xr Chest Ap Portable Result Date: 10/06/2017 EXAM: XR CHEST AP PORTABLE dated 10/06/2017 6:09 AM HISTORY: pneumonia Comparison: Chest x-r ays dating to October 03, 1999 TECHNIQUE: A single portable view of the chest. FINDINGS: Int erval decrease in interstitial and airspace opacities bilaterally. These are not resolved. No pneumothorax. No large pleural effusion. Stable mild cardiomegaly. IMPRESSION - Interv al decrease in interstitial and airspace opacities bilaterally. Dictated and Signed by: Anthony Swift MD Electronically signed: 10/06/2017 8:34 AM Xr Chest Ap Portable Result Date: 10/05/2017 SINGLE AP CHEST 10/05/2017 3:23 PM CLINICAL HISTORY: increased o2 demand COMPARISON: Radiogr aphy from earlier in the day and more remote exams FINDINGS: The endotracheal and esophagoga stric tubes have been removed. Cardiomediastinal silhouette is unremarkable. There is new p atchy reticular opacity in the left mid-upper lung and right mid lung, with increased patchy opacity at the right base. Left basilar aeration is somewhat improved although patchy opac ity is visible in this region as well. No pneumothorax or pleural effusion is evident. Bon es and soft tissues are unremarkable. IMPRESSION - 1. NEW PATCHY RETICULAR OPACITY INVOLVI NG PORTIONS OF BOTH LUNGS FOLLOWING EXTUBATION. THIS COULD REFLECT PULMONARY EDEMA OR MASSI VE ASPIRATION. Dictated and Signed by: Jai De La Rosa MD Electronically signed: 10/05/2017 8:4 6 PM Current Facility-Administered Medications: albuterol-ipratropium 3 mL Nebulization RT Q4H amiodarone 400 mg Oral BID aspirin 81 mg Per OG Tube Daily atorvaSTATin 40 mg Per OG Tube Daily cefTRIAXone 2 g Intravenous Daily clopidogrel 75 mg Per OG Tube Daily dextrose 12.5 g Intravenous PRN HYDROcodone-acetaminophen 1-2 tablet Oral Q4H PRN insulin lispro 0-6 Units Subcutaneous 4x Daily WC and HS lidocaine 1%-EPINEPHrine 1:100,000 5 mL Infiltration Once PRN metoprolol tartrate 25 mg Oral 4 times per day nitroglycerin 0.4 mg Sublingual Q5 Min PRN oseltamivir 75 mg Oral BID pantoprazole 40 mg Oral BID AC ASSESSMENT and PLAN: Active Hospital Problems Diagnosis Pulmonary edema Ischemic cardiomyopathy CAD (coronary 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) Resolved Hospital Problems Diagnosis Date Noted Date Resolved No resolved problems to display. 1. Acute hypoxic respiratory failure thought to be from septic shock 2/2 Pneumonia/influen za requiring Mechanical vent - s/p extubation on 10/05 - weaning oxygen to Sp02>=94% - continue ceftriaxone, azithromycin, tamiflu D#4 - place on BiPAP at night and PRN - continue duonebs - Acappella 2. Acute on chronic systolic CHF exacerbation - IVF stopped - s/p lasix 40 mg IV this morning - strict I and O, daily weight - BiPAP hs and PRN 3. NSTEMI in the setting of known severe ischemic CAD/recent ant wall LA in 03/2017 c/b card iogenic shock s/p ECMO in [facility] - troponin peaked to 26 - C on 10/03- severe in-stent stenosis of left main to ostial LAD stent, severe instent s tenosis ostial proximal left circumflex stent, mild to mod RCA disease. - Echo 10/03- EF 40%, thinning and severe hypokinesis distal anterior, anterior septal and a pical segments. - continue aspirin, plaxix, metoprolol and statin - will resume ACEI if creatinine stable. - Dr. Mobley will consult with cardiology team at [facility] Re: planning for revascularization 4. Paroxysmal atrial flutter - amiodarone gtt-->amiodarone 400mg PO bid - continue with aspirin, plavix and metoprolol - keep K>=4, Mg >=2 DVT Prophylaxis: SCD's while in bed. Start heparin sub q Diet: Heart healthy Lines: PIV Code Status: Full Code. Disposition: pending clinically course Total time of approximately 35 minutes was spent with the patient and/or patient's family, and/or on the patient's floor/unit, of which more than 50% was spent counseling and/or coord ination the patient's care as outlined above. Destinee Trejo 10/07/2017 14:38 [facility] Delmer Mobley MD - 10/07/2017 1207 PSTFormatting of this note may be different from the original. PATIENT NAME: Bob Hood : 1955: AGE: 61 y.o. ADMISSION DATE: 10/03/2017 HOSPITAL DAY NUMBER: [id number] PRIMARY CARE: Chato Matson MD CARDIOLOGY PROGRESS NOTE Patient continues to feel improved with less dyspnea and no complaints of chest pain. No r ecurrence of atrial flutter on amiodarone. Blood pressure has been stable. Patient ambulat ing in the room. . MEDICATIONS: Current Facility-Administered Medications Medication Dose Route Frequency Provider Last Rate Last Dose albuterol-ipratropium (DUONEB) 2.5-0.5 mg/3 mL nebulizer solution 3 mL 3 mL Nebulizati on RT Q4H Clinton Burnett MD 3 mL at 10/09/17 0710 amiodarone (PACERONE) tablet 400 mg 400 mg Oral BID Destinee Trejo MD 400 mg at 10/25 0908 aspirin chewable tablet 81 mg 81 mg Per OG Tube Daily Ganga Lind MD 81 mg at 0 10/09/17 0908 atorvaSTATin (LIPITOR) tablet 40 mg 40 mg Per OG Tube Daily Ganga Lind MD 40 m g at 10/09/17 0908 carvedilol (COREG) tablet 3.125 mg 3.125 mg Oral BID WC Destinee Trejo MD 3.125 mg at 10/09/17 0740 cefTRIAXone (ROCEPHIN) 2 g in sodium chloride 0.9% 50 mL IVPB 2 g Intravenous Daily An ihlda Lind MD 100 mL/hr at 10/09/17 1021 2 g at 10/09/17 1021 clopidogrel (PLAVIX) tablet 75 mg 75 mg Per OG Tube Daily Ganga Lind MD 75 mg at 10/09/17 0908 dextrose 50% injection 12.5 g 12.5 g Intravenous PRN Ganga Lind MD heparin 5,000 units/mL injection 5,000 Units 5,000 Units Subcutaneous 2 times per day Destinee Trejo MD 5,000 Units at 10/09/17 0908 HYDROcodone-acetaminophen (NORCO) 5-325 mg per tablet 1-2 tablet 1-2 tablet Oral Q4H P RN Clinton Burnett MD 2 tablet at 10/09/17 1026 insulin lispro (humaLOG KWIKPEN) 100 units/mL injection (pen) 0-6 Units 0-6 Units Subc utaneous 4x Daily WC and HS Ganga Lind MD nitroglycerin (NITROSTAT) SL tablet 0.4 mg 0.4 mg Sublingual Q5 Min PRN Delmer Dai MD nystatin (MYCOSTATIN) powder Topical BID Destinee Trejo MD pantoprazole (PROTONIX) DR tablet 40 mg 40 mg Oral BID AC Carlos Graham PharmD 40 m g at 10/09/17 0634 ALLERGIES No Known Allergies PHYSICAL EXAM Vital signs: Vitals: 10/09/17 0736 BP: 106/66 Pulse: 81 Resp: 12 Temp: 36.3 C (97.3 F) Admit Weight: Weight: 97 kg (213 lb 13.5 oz) Current weight: Weight: 90.3 kg (199 lb 1. 2 oz) Body mass index is 28.56 kg/m. General: Resting comfortably on nasal cannula Chest: Slightly decreased breath sounds in bases, otherwise clear Cardiovascular: Regular rhythm, no S3, jugular venous pressure normal Gastrointestinal: Abdomen soft, non-tender, normal bowel sounds Extremities: No edema Neuro: within normal LABS: Admission on 10/03/2017 No results displayed because visit has over 200 results. IMAGING: Xr Chest Ap Portable Result Date: 10/07/2017 EXAM: XR CHEST AP PORTABLE dated 10/07/2017 3:31 AM HISTORY: hypoxia Comparison: October 06 and October 05, 2017 TECHNIQUE: A single portable view of the chest. FINDINGS: The lungs are symmetrically aerated. Interval progression of interstitial and airspace opacities. Air b ronchograms in the left lower lung. These are symmetric in the left lung but diffusely thro ughout both lungs. No large pleural effusion. No pneumothorax. The cardiac and mediastina l contours are not enlarged. No visible acute osseous abnormalities. IMPRESSION - Progressi ve interstitial and airspace opacities. These could be due to cardiogenic or noncardiogenic pulmonary edema. These could be due to atypical pneumonia. The findings could be related to a combined pathology. Dictated and Signed by: Terry Swift MD Electronically signed: 10/07/2017 9:11 AM Xr Chest Ap Portable Result Date: 10/06/2017 EXAM: XR CHEST AP PORTABLE dated 10/06/2017 6:09 AM HISTORY: pneumonia Comparison: Chest x-r ays dating to October 03, 1999 TECHNIQUE: A single portable view of the chest. FINDINGS: Int erval decrease in interstitial and airspace opacities bilaterally. These are not resolved. No pneumothorax. No large pleural effusion. Stable mild cardiomegaly. IMPRESSION - Interv al decrease in interstitial and airspace opacities bilaterally. Dictated and Signed by: Anthony Swift MD Electronically signed: 10/06/2017 8:34 AM Xr Chest Ap Portable Result Date: 10/05/2017 SINGLE AP CHEST 10/05/2017 3:23 PM CLINICAL HISTORY: increased o2 demand COMPARISON: Radiogr aphy from earlier in the day and more remote exams FINDINGS: The endotracheal and esophagoga stric tubes have been removed. Cardiomediastinal silhouette is unremarkable. There is new p atchy reticular opacity in the left mid-upper lung and right mid lung, with increased patchy opacity at the right base. Left basilar aeration is somewhat improved although patchy opac ity is visible in this region as well. No pneumothorax or pleural effusion is evident. Bon es and soft tissues are unremarkable. IMPRESSION - 1. NEW PATCHY RETICULAR OPACITY INVOLVI NG PORTIONS OF BOTH LUNGS FOLLOWING EXTUBATION. THIS COULD REFLECT PULMONARY EDEMA OR MASSI VE ASPIRATION. Dictated and Signed by: Jai De La Rosa MD Electronically signed: 10/05/2017 8:4 6 PM Xr Chest Ap Portable Result Date: 10/05/2017 SINGLE AP CHEST 10/05/2017 5:28 AM CLINICAL HISTORY: resp failure COMPARISON: Radiography fr om the previous day and more remote exams FINDINGS: The endotracheal tube remains in positio n, terminating approximately 4.5 cm above the tanya. Esophagogastric tube again passes int o the imaged left upper abdomen. The cardiomediastinal silhouette and pulmonary vasculature are otherwise unremarkable. There is persistent dense opacity at the medial left base. Mi ld hazy reticular opacity elsewhere in the lung bases is similar in extent. The upper lung chadwick are clear. No pneumothorax or pleural effusion is visible. Bones and soft tissues a re unremarkable. IMPRESSION - 1. ENDOTRACHEAL TUBE 4.5 CM ABOVE THE TANYA. 2. STABLE BIB ASILAR OPACITIES DISCUSSED. Dictated and Signed by: Jai De La Rosa MD Electronically dave d: 10/05/2017 8:44 PM Xr Chest Ap Portable Result Date: 10/05/2017 EXAM: XR CHEST AP PORTABLE dated 10/04/2017 7:03 PM HISTORY: acute respiratory failure Leonides rison: October 03, 2017 TECHNIQUE: A single portable view of the chest. FINDINGS: Persistent the lower lobe parenchymal opacities. Endotracheal tube is in place. The tip is approxima tely 5 cm above the tanya. There is an enteric tube coursing below diaphragm with the tip not seen. The cardiac and mediastinal contours are stable. Blunting of the left costophren ic angle could be effusion. No pneumothorax. IMPRESSION - Persistent basilar opacities and possible left pleural effusion. No significant change in support lines or tubes. Dictated an d Signed by: Terry Swift MD Electronically signed: 10/05/2017 9:50 AM Xr Chest Ap Portable Result Date: 10/03/2017 CLINICAL INFORMATION: Eval for acute hypoxic respiratory failure. COMPARISON: 03/15/2017. FIN DINGS: Portable frontal chest radiograph. Endotracheal tube approximately 4.8 cm from the ca sherron. Enteric tube projecting below the left hemidiaphragm, tip not seen. Side port is note d at the level of the gastric fundus. Lungs: Mixed interstitial and alveolar opacities are n oted predominantly at the mid to lower lungs. Mild interstitial thickening noted throughout the perihilar regions. No pleural effusion or pneumothorax. Heart/mediastinum: Cardiac carlos houette is of normal size. No mediastinal widening. Bones: No acute osseous abnormality appr eciated. IMPRESSION - Tubes as above. Mixed interstitial and alveolar opacities predominantl y at the mid to lower lungs, may reflect pulmonary edema versus atypical infectious process. Dictated and Signed by: Alin Ramírez MD Electronically signed: 10/03/2017 12:41 PM DIAGNOSES AND ASSESSMENTS: 1. Acute hypoxic respiratory failure, leukocytosis, fever, septic shock: Patient's respirat ory condition is markedly improved. His blood pressure has remained stable off pressors and his white blood cell count has decreased. He continues on IV antibiotics 2. 2. Acute non-ST elevation myocardial infarction in the setting of left bundle branch bl ock: The patient has severe in-stent stenosis of left circumflex and LAD bifurcation stents. Patient will be transferred to complex [facility] for revascularization [facility] this week 3. Paroxysmal atrial flutter: Remains in sinus rhythm on oral amiodarone PLAN OR RECOMMENDATIONS: Continue current medical management We'll contact [facility] regarding transfer and revascularization plann ing I appreciate the opportunity of participating in the care of this patient. Delmer Mobley MD, 10/09/2017 12:08 Carlos Graham, PharmD - 10/07/2017 0959 PSTFormatting of this note may be different from t he original. IV TO PO PER PHARMACY PROTOCOL Bob Hood is a 61 y.o. year old male admitted on 10/03/2017 9:31 for Pulmonary chanda ma [J81.1] Acute upper GI bleeding [K92.2] Temp: [36.3 C (97.3 F)-37.5 C (99.5 F)] 36.3 C (97.3 F) Pulse: [75-115] 100 Resp: [8-41] 13 BP: (87-150)/(54-114) 111/62 Recent Labs Lab 10/07/17 03510/06/17 0348 10/05/17 0427 10/04/17 0345 10/03/17 1129 HGB 14.3 13.7 12.4* 13.2* 16.8 HCT 43.3 41.4 37.6* 40.5 50.3 MCV 89.9 89.6 90.4 90.3 90.5 MCH 29.7 29.7 29.7 29.5 30.1 MCHC 33.0 33.1 32.9 32.6 33.3 RDW 15.3* 15.0* 16.0* 16.0* 16.2* Recent Labs Lab 10/07/17 03510/06/17 03410/05/17 0427 10/04/17 0345 10/04/17 0343 10/03/17 1851 10/03/17 1129 NEUABS 8.80* 8.10 6.60 8.40 -- -- 22.00* WBC 10.9 10.4 8.3 10.5 -- -- 24.2* CREA 1.29 1.30 1.19 -- 1.26 1.42* 1.55* PLT 178 137* 126* 151 -- -- 193 Estimated Creatinine Clearance: 67 mL/min (based on SCr of 1.29 mg/dL). Assessment: Patient is currently on protonix IV since 10/03/2017. [x] Patient meets criteria for IV to PO switch Tolerating oral or enteral nutriton; receiving other oral medications Intact and functioning GI tract Improving clinical status [] Doesn't meet criteria and has any of the following contraindications: Respiratory distress Nothing by mouth (NPO) Inability to swallow Active GI bleeding Obstructed GI Unreliable response to oral medications (e.g. presence of continuous NG suction, malabso rption syndrome, ileus, protracted vomiting, severe diarrhea) Diminished gut perfusion from hemodynamic instability (e.g. state of shock, requiring th e use of pressors) Plan: Change protonix to 40 mg orally BID Carlos Graham PharmD 10/07/2017 9:59 [facility] [place] [facility] IV TO PO Collaborative Practice Protocol Delmer Mobley MD - 10/06/2017 1717 PSTFormatting of this note may be different from the original. PATIENT NAME: Bob Hood : 1955: AGE: 61 y.o. ADMISSION DATE: 10/03/2017 HOSPITAL DAY NUMBER: 3 PRIMARY CARE: Chato Matson MD CARDIOLOGY PROGRESS NOTE Patient feeling improved this morning now on nasal cannula oxygen. The patient converted t o sinus rhythm last evening on IV amiodarone. His blood pressure has been improving and has remained stable with no further IV pressor requirements. Hemoglobin 12.4, creatinine 1.19 MEDICATIONS: Current Facility-Administered Medications Medication Dose Route Frequency Provider Last Rate Last Dose acetaminophen (TYLENOL) tablet 650 mg 650 mg Per OG Tube Q6H PRN Herman Masterson MD 6 50 mg at 10/05/172023 albuterol-ipratropium (DUONEB) 2.5-0.5 mg/3 mL nebulizer solution 3 mL 3 mL Nebulizati on RT Q4H Clinton Burnett MD 3 mL at 10/06/17 1640 [START ON 10/07/2017] amiodarone (PACERONE) tablet 200 mg 200 mg Oral BID Destinee ivy MD aspirin chewable tablet 81 mg 81 mg Per OG Tube Daily Ganga Lind MD 81 mg at 0 10/06/17 0831 atorvaSTATin (LIPITOR) tablet 40 mg 40 mg Per OG Tube Daily Ganga Lind MD 40 m g at 10/06/17 0831 cefTRIAXone (ROCEPHIN) 2 g in sodium chloride 0.9% 50 mL IVPB 2 g Intravenous Daily An hilda Lind MD 100 mL/hr at 10/06/17 0831 2 g at 10/06/17 0831 clopidogrel (PLAVIX) tablet 75 mg 75 mg Per OG Tube Daily Ganga Lind MD 75 mg at 10/06/17 0831 dextrose 50% injection 12.5 g 12.5 g Intravenous PRN Ganga Lind MD HYDROcodone-acetaminophen (NORCO) 5-325 mg per tablet 1-2 tablet 1-2 tablet Oral Q4H P RN Clinton Burnett MD 2 tablet at 10/06/17 1411 insulin lispro (humaLOG KWIKPEN) 100 units/mL injection (pen) 0-6 Units 0-6 Units Subc utaneous 4x Daily WC and HS Ganga Lind MD lactated ringers (LR) infusion Intravenous Continuous Clinton Burnett MD 100 mL/hr at 10/05/17 1050 lidocaine 1%-EPINEPHrine 1:100,000 injection 5 mL 5 mL Infiltration Once PRN Delmer Dai MD metoprolol tartrate (LOPRESSOR) tablet 25 mg 25 mg Oral 4 times per day Destinee Trejo MD 25 mg at 10/06/17 1327 nitroglycerin (NITROSTAT) SL tablet 0.4 mg 0.4 mg Sublingual Q5 Min PRN Delmer Dai MD oseltamivir (TAMIFLU) capsule 75 mg 75 mg Oral BID Anthony Colunga PharmD 75 mg at 10/06/17 0831 pantoprazole (PROTONIX) injection 40 mg 40 mg Intravenous BID Herman Masterson MD 40 m g at 10/06/17 0831 ALLERGIES No Known Allergies PHYSICAL EXAM Vital signs: Vitals: 10/06/17 1650 BP: Pulse: 78 Resp: 12 Temp: Admit Weight: Weight: 97 kg (213 lb 13.5 oz) Current weight: Weight: 90.2 kg (198 lb 13 .7 oz) Body mass index is 28.53 kg/m. General: Alert, appears to be resting comfortably, conversant Chest: Slightly decreased breath sounds in bases, no crackles Cardiovascular: Regular rhythm, no S3, jugular venous pressure normal Gastrointestinal: Abdomen soft, non-tender, normal bowel sounds Extremities: No edema Neuro: within normal LABS: Admission on 10/03/2017 No results displayed because visit has over 200 results. IMAGING: Xr Chest Ap Portable Result Date: 10/06/2017 EXAM: XR CHEST AP PORTABLE dated 10/06/2017 6:09 AM HISTORY: pneumonia Comparison: Chest x-r ays dating to October 03, 1999 TECHNIQUE: A single portable view of the chest. FINDINGS: Int erval decrease in interstitial and airspace opacities bilaterally. These are not resolved. No pneumothorax. No large pleural effusion. Stable mild cardiomegaly. IMPRESSION - Interv al decrease in interstitial and airspace opacities bilaterally. Dictated and Signed by: Anthony Swift MD Electronically signed: 10/06/2017 8:34 AM Xr Chest Ap Portable Result Date: 10/05/2017 SINGLE AP CHEST 10/05/2017 3:23 PM CLINICAL HISTORY: increased o2 demand COMPARISON: Radiogr aphy from earlier in the day and more remote exams FINDINGS: The endotracheal and esophagoga stric tubes have been removed. Cardiomediastinal silhouette is unremarkable. There is new p atchy reticular opacity in the left mid-upper lung and right mid lung, with increased patchy opacity at the right base. Left basilar aeration is somewhat improved although patchy opac ity is visible in this region as well. No pneumothorax or pleural effusion is evident. Bon es and soft tissues are unremarkable. IMPRESSION - 1. NEW PATCHY RETICULAR OPACITY INVOLVI NG PORTIONS OF BOTH LUNGS FOLLOWING EXTUBATION. THIS COULD REFLECT PULMONARY EDEMA OR MASSI VE ASPIRATION. Dictated and Signed by: Jai De La Rosa MD Electronically signed: 10/05/2017 8:4 6 PM Xr Chest Ap Portable Result Date: 10/05/2017 SINGLE AP CHEST 10/05/2017 5:28 AM CLINICAL HISTORY: resp failure COMPARISON: Radiography fr om the previous day and more remote exams FINDINGS: The endotracheal tube remains in positio n, terminating approximately 4.5 cm above the tanya. Esophagogastric tube again passes int o the imaged left upper abdomen. The cardiomediastinal silhouette and pulmonary vasculature are otherwise unremarkable. There is persistent dense opacity at the medial left base. Mi ld hazy reticular opacity elsewhere in the lung bases is similar in extent. The upper lung chadwick are clear. No pneumothorax or pleural effusion is visible. Bones and soft tissues a re unremarkable. IMPRESSION - 1. ENDOTRACHEAL TUBE 4.5 CM ABOVE THE TANYA. 2. STABLE BIB ASILAR OPACITIES DISCUSSED. Dictated and Signed by: Jai De La Rosa MD Electronically dave d: 10/05/2017 8:44 PM Xr Chest Ap Portable Result Date: 10/05/2017 EXAM: XR CHEST AP PORTABLE dated 10/04/2017 7:03 PM HISTORY: acute respiratory failure Leonides rison: October 03, 2017 TECHNIQUE: A single portable view of the chest. FINDINGS: Persistent the lower lobe parenchymal opacities. Endotracheal tube is in place. The tip is approxima tely 5 cm above the tanya. There is an enteric tube coursing below diaphragm with the tip not seen. The cardiac and mediastinal contours are stable. Blunting of the left costophren ic angle could be effusion. No pneumothorax. IMPRESSION - Persistent basilar opacities and possible left pleural effusion. No significant change in support lines or tubes. Dictated an d Signed by: Terry Swift MD Electronically signed: 10/05/2017 9:50 AM Xr Chest Ap Portable Result Date: 10/03/2017 CLINICAL INFORMATION: Eval for acute hypoxic respiratory failure. COMPARISON: 03/15/2017. FIN DINGS: Portable frontal chest radiograph. Endotracheal tube approximately 4.8 cm from the ca sherron. Enteric tube projecting below the left hemidiaphragm, tip not seen. Side port is note d at the level of the gastric fundus. Lungs: Mixed interstitial and alveolar opacities are n oted predominantly at the mid to lower lungs. Mild interstitial thickening noted throughout the perihilar regions. No pleural effusion or pneumothorax. Heart/mediastinum: Cardiac carlos houette is of normal size. No mediastinal widening. Bones: No acute osseous abnormality appr eciated. IMPRESSION - Tubes as above. Mixed interstitial and alveolar opacities predominantl y at the mid to lower lungs, may reflect pulmonary edema versus atypical infectious process. Dictated and Signed by: Alin Ramírez MD Electronically signed: 10/03/2017 12:41 PM DIAGNOSES AND ASSESSMENTS: 1. Acute respiratory failure, fever, leukocytosis, hypotension: Fever, leukocytosis, and hy potension have resolved on intravenous antibiotics, oxygenation and respiratory status have improved 2. Acute non-ST elevation myocardial infarction in setting of left bundle branch block: Pat ient with severe ostial left circumflex in-stent stenosis, moderately severe ostial in-stent LAD stenosis. Patient will need coronary revascularization at Hospital with coronary surge ry option prior to discharge home 3. Paroxysmal atrial flutter: Patient initially converted to sinus rhythm last evening but reverted to atrial flutter with ventricular rate 130s today PLAN OR RECOMMENDATIONS: Continue amiodarone with conversion to oral therapy, continue beta clotilde therapy Repeat troponin Will consult with cardiology team at [facility] regarding planning for coronary revascularization prior to discharge home I appreciate the opportunity of participating in the care of this patient. Delmer Mobley MD, 10/06/2017 17:17 Destinee Trejo MD - 10/06/2017 1245 PSTFormatting of this note may be different from the original. [facility] PMG Hospitalist Progress Note Bob Hood is a 61 y.o. male INTERVAL HPI: He is a 61 y.o. male with a history of CAD with recent anterior wall LA, post PTCA and sten ts of the left main, LAD and LCx on 03/15/17 + left atrial appendage thrombus c/b cardiac shoc k/respiratory failure requiring Tx to [facility]; was on ECMO, who was a transfer this time from [facility] on 10/03 for acute respiratory failure requiring intubation after present ing with progressively worsening shortness of breath. He was found to have NSTEMI with new L BBB and elevated tropinin and Septic shock thought to be from pneumonia/influenza; started o n ceftriaxone, azithromycin and tamiflu. He underwent LHC on 10/03- severe in-stent stenosis of left main to ostial LAD stent, severe instent stenosis ostial proximal left circumflex st ent, mild to mod RCA disease. Echo 10/03- EF 40%, thinning and severe hypokinesis distal ante rior, anterior septal and apical segments. There was concern for UGI bleeding given down saúl nd in H/H and positive gastroccult. S/p EGD on 10/05- Inflammation just distal to EG junction , NG tube trauma noted along greater curvature, antral gastritis/duodenitis; 2 linear ulcera tions along lesser curvature s/p 2 clips placement; no evidence of active bleeding. He was e xtubated on 10/05. Post extubation, course was complicated by acute respiratory distress and severe HTN/tachycardia; placed on Bipap and started on IV nitroglycerine and lasix Iv. CXR s howed increasing pulmonary edema. Evidence of atrial flutter after he received adenosine 6mg /12mg and was started on amiodarone bolus followed by a drip with conversion to sinus rhythm . No acute issues overnight. On amiodarone drip. Heart rate is better controlled. Oxygen been weaned off from 14 liters to 8 liters this morning. SUBJECTIVE: He feels much better this morning. Working with RT and using PEP device. Denies any chest pain. Shortness of breath is better. VITALS: Temp: 37.4 C (99.3 F), Pulse: 75, Resp: 8, BP: 100/63, SpO2 95 % on high-flow nasal can nula, radiography technician system, heated at flow rate 14L/min Temp Min: 36.4 C (97.5 F) Max: 38.1 C (100.6 F) Weight: 97 kg (213 lb 13.5 oz) Intake/Output Summary (Last 24 hours) at 10/06/17 1245 Last data filed at 10/06/17 0800 Gross per 24 hour Intake 1954 ml Output 1800 ml Net 154 ml PHYSICAL EXAM: Gen Ernestine - alert, cooperative and not in acute distress Head - Normocephalic, without obvious abnormality Eyes - PERRL, conjunctiva/corneas clear ENT - mucous membranes moist Neck - supple Lungs - mild b/l crackles Heart - S1S2 heard Abdomen - soft, non-tender, without masses or organomegaly Extremities - no peripheral edema, no clubbing or cyanosis Skin - no rashes Neurologic - Alert and oriented X3. No focal deficit clinically DIAGNOSTIC STUDIES: Available data and images were reviewed personally. Significant results and findings are a ddressed here or in the Assessment and Plan. Recent Results (from the past 24 hour(s)) POC Blood Gases Result Value Ref Range Specimen Source Artery pH, POC 7.498 (H) 7.3 - 7.45 HCO3, POC 24.4 21.0 - 28.0 mmol/L TCO2, POC 25.4 22.0 - 29.0 mmol/L Base Excess, POC 1.8 -2.0 - 3.0 mmol/L Base Excess, Extracellular fluid, POC 1.2 -2.0 - 3.0 mmol/L O2 Sat, POC 98 90 - 100 % PCO2, POC 31.5 (L) 35.0 - 50.0 mmHg PO2, POC 94.0 (H) 25.0 - 50.0 mmHg ECG 12 lead Result Value Ref Range VENTRICULAR RATE EKG 150 BPM ATRIAL RATE 150 BPM P-R INTERVAL 112 ms QRS DURATION 128 ms Q-T INTERVAL 314 ms Q-T INTERVAL (CORRECTED) 496 ms QRS AXIS -27 degrees T AXIS 95 degrees INTERPRETATION TEXT Possible Sinus tachycardia though atrial flutter with 2:1 should be strongly considered w ith rate of 150 bpm Nonspecific intraventricular block Cannot rule out Anterior infarct (cited on or before 05-OCT-2017) ST and T wave abnormalities may be secondary to rate and/or ischemia Abnormal ECG When compared with ECG of 05-OCT-2017 15:09, (Unconfirmed) Possible Atrial flutter is now present Confirmed by FLORY العلي MD ([id number]) on 10/06/2017 7:17:27 AM POC Glucose Result Value Ref Range Glucose, POC 126 (H) 70 - 109 mg/dL CBC with Differential Result Value Ref Range WBC 10.4 4.0 - 11.0 K/uL RBC 4.62 4.30 - 5.70 M/uL Hgb 13.7 13.5 - 18.0 g/dL Hct 41.4 40.0 - 51.0 % MCV 89.6 83.0 - 101.0 fL MCH 29.7 28.0 - 35.0 pg MCHC 33.1 32.0 - 36.0 g/dL RDW-CV 15.0 (H) <15.0 % Platelet Count 137 (L) 140 - 440 K/uL MPV 8.2 fL % Neutrophils 78.3 45.0 - 82.0 % % Lymphocytes 11.8 (L) 20.0 - 45.0 % % Monocytes 9.2 4.0 - 12.0 % % Eosinophils 0.2 0.0 - 5.0 % % Basophils 0.5 0.0 - 1.0 % Absolute Neutrophils 8.10 1.80 - 8.50 K/uL Absolute Lymphocytes 1.20 0.60 - 3.20 K/uL Absolute Monocytes 1.00 0.00 - 1.00 K/uL Absolute Eosinophils 0.00 0.00 - 0.40 K/uL Absolute Basophils 0.10 0.00 - 0.10 K/uL Basic Metabolic Panel Result Value Ref Range NA 144 136 - 149 mmol/L K 3.1 (L) 3.5 - 5.1 mmol/L CL 108 98 - 109 mmol/L CO2 26 24 - 31 mmol/L ANION GAP 10 3 - 16 mmol/L GLUCOSE 136 (H) 70 - 109 mg/dL BUN 18 7 - 18 mg/dL Creatinine, Serum/Plasma 1.30 0.60 - 1.30 mg/dL eGFR if not 56 (L) >=60 mL/min/1.73m2 CALCIUM 8.3 8.3 - 10.5 mg/dL BUN/CREA 13.8 Magnesium Result Value Ref Range MG 1.9 1.8 - 2.5 mg/dL POC Glucose Result Value Ref Range Glucose, POC 110 (H) 70 - 109 mg/dL POC Glucose Result Value Ref Range Glucose, POC 120 (H) 70 - 109 mg/dL Xr Chest Ap Portable Result Date: 10/06/2017 EXAM: XR CHEST AP PORTABLE dated 10/06/2017 6:09 AM HISTORY: pneumonia Comparison: Chest x-r ays dating to October 03, 1999 TECHNIQUE: A single portable view of the chest. FINDINGS: Int erval decrease in interstitial and airspace opacities bilaterally. These are not resolved. No pneumothorax. No large pleural effusion. Stable mild cardiomegaly. IMPRESSION - Interv al decrease in interstitial and airspace opacities bilaterally. Dictated and Signed by: Anthony Swift MD Electronically signed: 10/06/2017 8:34 AM Xr Chest Ap Portable Result Date: 10/05/2017 SINGLE AP CHEST 10/05/2017 3:23 PM CLINICAL HISTORY: increased o2 demand COMPARISON: Radiogr aphy from earlier in the day and more remote exams FINDINGS: The endotracheal and esophagoga stric tubes have been removed. Cardiomediastinal silhouette is unremarkable. There is new p atchy reticular opacity in the left mid-upper lung and right mid lung, with increased patchy opacity at the right base. Left basilar aeration is somewhat improved although patchy opac ity is visible in this region as well. No pneumothorax or pleural effusion is evident. Bon es and soft tissues are unremarkable. IMPRESSION - 1. NEW PATCHY RETICULAR OPACITY INVOLVI NG PORTIONS OF BOTH LUNGS FOLLOWING EXTUBATION. THIS COULD REFLECT PULMONARY EDEMA OR MASSI VE ASPIRATION. Dictated and Signed by: Jai De La Rosa MD Electronically signed: 10/05/2017 8:4 6 PM Xr Chest Ap Portable Result Date: 10/05/2017 SINGLE AP CHEST 10/05/2017 5:28 AM CLINICAL HISTORY: resp failure COMPARISON: Radiography fr om the previous day and more remote exams FINDINGS: The endotracheal tube remains in positio n, terminating approximately 4.5 cm above the tanya. Esophagogastric tube again passes int o the imaged left upper abdomen. The cardiomediastinal silhouette and pulmonary vasculature are otherwise unremarkable. There is persistent dense opacity at the medial left base. Mi ld hazy reticular opacity elsewhere in the lung bases is similar in extent. The upper lung chadwick are clear. No pneumothorax or pleural effusion is visible. Bones and soft tissues a re unremarkable. IMPRESSION - 1. ENDOTRACHEAL TUBE 4.5 CM ABOVE THE TANYA. 2. STABLE BIB ASILAR OPACITIES DISCUSSED. Dictated and Signed by: Jai De La Rosa MD Electronically dave d: 10/05/2017 8:44 PM Xr Chest Ap Portable Result Date: 10/05/2017 EXAM: XR CHEST AP PORTABLE dated 10/04/2017 7:03 PM HISTORY: acute respiratory failure Leonides rison: October 03, 2017 TECHNIQUE: A single portable view of the chest. FINDINGS: Persistent the lower lobe parenchymal opacities. Endotracheal tube is in place. The tip is approxima tely 5 cm above the tanya. There is an enteric tube coursing below diaphragm with the tip not seen. The cardiac and mediastinal contours are stable. Blunting of the left costophren ic angle could be effusion. No pneumothorax. IMPRESSION - Persistent basilar opacities and possible left pleural effusion. No significant change in support lines or tubes. Dictated an d Signed by: Terry Swift MD Electronically signed: 10/05/2017 9:50 AM Current Facility-Administered Medications: acetaminophen 650 mg Per OG Tube Q6H PRN albuterol-ipratropium 3 mL Nebulization RT Q4H amiodarone 0.5 mg/min Intravenous Titrated [START ON 10/07/2017] amiodarone 200 mg Oral BID aspirin 81 mg Per OG Tube Daily atorvaSTATin 40 mg Per OG Tube Daily cefTRIAXone 2 g Intravenous Daily clopidogrel 75 mg Per OG Tube Daily dextrose 12.5 g Intravenous PRN HYDROcodone-acetaminophen 1-2 tablet Oral Q4H PRN insulin lispro 0-6 Units Subcutaneous 4x Daily WC and HS lactated ringers Intravenous Continuous lidocaine 1%-EPINEPHrine 1:100,000 5 mL Infiltration Once PRN metoprolol tartrate 25 mg Oral 4 times per day nitroglycerin 0.4 mg Sublingual Q5 Min PRN oseltamivir 75 mg Oral BID pantoprazole 40 mg Intravenous BID ASSESSMENT and PLAN: Active Hospital Problems Diagnosis Pulmonary edema Ischemic cardiomyopathy CAD (coronary 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) Resolved Hospital Problems Diagnosis Date Noted Date Resolved No resolved problems to display. 1. Acute hypoxic respiratory failure thought to be from septic shock 2/2 Pneumonia/influen za requiring Mechanical vent - s/p extubation on 10/05 - weaning oxygen to Sp02>=94% - continue ceftriaxone, azithromycin, tamiflu D#3 - continue duonebs - [place] 2. NSTEMI in the setting of known severe ischemic CAD/recent ant wall LA in 03/2017 c/b card iogenic shock s/p ECMO in [facility] - troponin peaked to 26 - LHC on 10/03- severe in-stent stenosis of left main to ostial LAD stent, severe instent s tenosis ostial proximal left circumflex stent, mild to mod RCA disease. - Echo 10/03- EF 40%, thinning and severe hypokinesis distal anterior, anterior septal and a pical segments. - continue aspirin, plaxix, metoprolol and statin - will f/u cardiology recs 3. S/p atrial flutter precipitated by acute respiratory distress - back to sinus rhythm on amiodarone gtt - continue with aspirin, plavix and metoprolol - keep K>=4, Mg >=2 DVT Prophylaxis: SCD's while in bed. Heparin sub q if H and H stable tomorrow. Encourage am bulation. Diet: pending speech evaluation Lines: PIV Code Status: Full Code. Disposition: Probably home when medically ready. PT/OT consult. Total time of approximately 40 minutes was spent with the patient and/or patient's family, and/or on the patient's floor/unit, of which more than 50% was spent counseling and/or coord ination the patient's care as outlined above. Destinee Trejo 10/06/2017 12:45 [facility] Clinton Burnett MD - 10/05/2017 5399 PSTHospitalist follow-up At approximately 4 PM, there'll hours after extubation the patient had sudden onset respir atory distress. This was treated with BiPAP and with severe hypertension initially IV nitro glycerin and furosemide given IV with the patient's x-ray showing increasing pulmonary edema pattern. Tachycardia which appeared to be sinus did not improve with clinical improvement of the res piratory status and adenosine initially 6 mg and then 12 mg given IV with a 12 mg dose showi ng clear-cut atrial flutter. Amiodarone was initiated with bolus and initiation of infusion the patient had conversion back to sinus rhythm.Delmer Mobley MD - 10/05/2017 1727 PSTF ormatting of this note may be different from the original. PATIENT NAME: Bob Hood : 1955: AGE: 61 y.o. ADMISSION DATE: 10/03/2017 HOSPITAL DAY NUMBER: 3 PRIMARY CARE: Chato Matson MD CARDIOLOGY PROGRESS NOTE Patient was extubated this morning and stable and nasal cannula until the patient turned in bed and suddenly got severely dyspneic requiring BiPAP and higher FiO2. The patient develo ped atrial flutter with ventricular rate in the 130s and was started on intravenous amiodaro ne. Later in the day he was started on oral metoprolol tartrate as his blood pressure had b een increasing in stable in the 130s. The patient denied chest pain. He was alert and orie nted. MEDICATIONS: Current Facility-Administered Medications Medication Dose Route Frequency Provider Last Rate Last Dose acetaminophen (TYLENOL) tablet 650 mg 650 mg Per OG Tube Q6H PRN Herman Masterson MD 6 50 mg at 10/05/172023 albuterol-ipratropium (DUONEB) 2.5-0.5 mg/3 mL nebulizer solution 3 mL 3 mL Nebulizati on RT Q4H Clinton Burnett MD 3 mL at 10/06/17 1640 [START ON 10/07/2017] amiodarone (PACERONE) tablet 200 mg 200 mg Oral BID Destinee ivy MD aspirin chewable tablet 81 mg 81 mg Per OG Tube Daily Ganga Lind MD 81 mg at 0 10/06/17 0831 atorvaSTATin (LIPITOR) tablet 40 mg 40 mg Per OG Tube Daily Ganga Lind MD 40 m g at 10/06/17 0831 cefTRIAXone (ROCEPHIN) 2 g in sodium chloride 0.9% 50 mL IVPB 2 g Intravenous Daily An hilda Lind MD 100 mL/hr at 10/06/17 0831 2 g at 10/06/17 0831 clopidogrel (PLAVIX) tablet 75 mg 75 mg Per OG Tube Daily Ganga Lind MD 75 mg at 10/06/17 0831 dextrose 50% injection 12.5 g 12.5 g Intravenous PRN Ganga Lind MD HYDROcodone-acetaminophen (NORCO) 5-325 mg per tablet 1-2 tablet 1-2 tablet Oral Q4H P RN Clinton Burnett MD 2 tablet at 10/06/17 1411 insulin lispro (humaLOG KWIKPEN) 100 units/mL injection (pen) 0-6 Units 0-6 Units Subc utaneous 4x Daily WC and HS Ganga Lind MD lactated ringers (LR) infusion Intravenous Continuous Clinton Burnett MD 100 mL/hr at 10/05/17 1050 lidocaine 1%-EPINEPHrine 1:100,000 injection 5 mL 5 mL Infiltration Once PRN Delmer Dai MD metoprolol tartrate (LOPRESSOR) tablet 25 mg 25 mg Oral 4 times per day Destinee Trejo MD 25 mg at 10/06/17 1327 nitroglycerin (NITROSTAT) SL tablet 0.4 mg 0.4 mg Sublingual Q5 Min PRN Delmer Dai MD oseltamivir (TAMIFLU) capsule 75 mg 75 mg Oral BID Anthony Colunga PharmD 75 mg at 10/06/17 0831 pantoprazole (PROTONIX) injection 40 mg 40 mg Intravenous BID Herman Masterson MD 40 m g at 10/06/17 0831 ALLERGIES No Known Allergies PHYSICAL EXAM Vital signs: Vitals: 10/06/17 1700 BP: (!) 87/61 Pulse: 82 Resp: 17 Temp: Admit Weight: Weight: 97 kg (213 lb 13.5 oz) Current weight: Weight: 90.2 kg (198 lb 13 .7 oz) Body mass index is 28.53 kg/m. General: Mildly anxious and dyspneic on BiPAP mask Chest: Scattered coarse breath sounds Cardiovascular: Rapid regular rhythm, no S3 Gastrointestinal: Abdomen soft, non-tender, normal bowel sounds Extremities: No edema Neuro: within normal LABS: Admission on 10/03/2017 No results displayed because visit has over 200 results. IMAGING: Xr Chest Ap Portable Result Date: 10/06/2017 EXAM: XR CHEST AP PORTABLE dated 10/06/2017 6:09 AM HISTORY: pneumonia Comparison: Chest x-r ays dating to October 03, 1999 TECHNIQUE: A single portable view of the chest. FINDINGS: Int erval decrease in interstitial and airspace opacities bilaterally. These are not resolved. No pneumothorax. No large pleural effusion. Stable mild cardiomegaly. IMPRESSION - Interv al decrease in interstitial and airspace opacities bilaterally. Dictated and Signed by: Anthony Swift MD Electronically signed: 10/06/2017 8:34 AM Xr Chest Ap Portable Result Date: 10/05/2017 SINGLE AP CHEST 10/05/2017 3:23 PM CLINICAL HISTORY: increased o2 demand COMPARISON: Radiogr aphy from earlier in the day and more remote exams FINDINGS: The endotracheal and esophagoga stric tubes have been removed. Cardiomediastinal silhouette is unremarkable. There is new p atchy reticular opacity in the left mid-upper lung and right mid lung, with increased patchy opacity at the right base. Left basilar aeration is somewhat improved although patchy opac ity is visible in this region as well. No pneumothorax or pleural effusion is evident. Bon es and soft tissues are unremarkable. IMPRESSION - 1. NEW PATCHY RETICULAR OPACITY INVOLVI NG PORTIONS OF BOTH LUNGS FOLLOWING EXTUBATION. THIS COULD REFLECT PULMONARY EDEMA OR MASSI VE ASPIRATION. Dictated and Signed by: Jai De La Rosa MD Electronically signed: 10/05/2017 8:4 6 PM Xr Chest Ap Portable Result Date: 10/05/2017 SINGLE AP CHEST 10/05/2017 5:28 AM CLINICAL HISTORY: resp failure COMPARISON: Radiography fr om the previous day and more remote exams FINDINGS: The endotracheal tube remains in positio n, terminating approximately 4.5 cm above the tanya. Esophagogastric tube again passes int o the imaged left upper abdomen. The cardiomediastinal silhouette and pulmonary vasculature are otherwise unremarkable. There is persistent dense opacity at the medial left base. Mi ld hazy reticular opacity elsewhere in the lung bases is similar in extent. The upper lung [place] are clear. No pneumothorax or pleural effusion is visible. Bones and soft tissues a re unremarkable. IMPRESSION - 1. ENDOTRACHEAL TUBE 4.5 CM ABOVE THE TANYA. 2. STABLE BIB ASILAR OPACITIES DISCUSSED. Dictated and Signed by: Jai De La Rosa MD Electronically dave d: 10/05/2017 8:44 PM Xr Chest Ap Portable Result Date: 10/05/2017 EXAM: XR CHEST AP PORTABLE dated 10/04/2017 7:03 PM HISTORY: acute respiratory failure Leonides rison: October 03, 2017 TECHNIQUE: A single portable view of the chest. FINDINGS: Persistent the lower lobe parenchymal opacities. Endotracheal tube is in place. The tip is approxima tely 5 cm above the tanya. There is an enteric tube coursing below diaphragm with the tip not seen. The cardiac and mediastinal contours are stable. Blunting of the left costophren ic angle could be effusion. No pneumothorax. IMPRESSION - Persistent basilar opacities and possible left pleural effusion. No significant change in support lines or tubes. Dictated an d Signed by: Terry Swift MD Electronically signed: 10/05/2017 9:50 AM Xr Chest Ap Portable Result Date: 10/03/2017 CLINICAL INFORMATION: Eval for acute hypoxic respiratory failure. COMPARISON: 03/15/2017. JUSTIN MOE: Portable frontal chest radiograph. Endotracheal tube approximately 4.8 cm from the ca sherron. Enteric tube projecting below the left hemidiaphragm, tip not seen. Side port is note d at the level of the gastric fundus. Lungs: Mixed interstitial and alveolar opacities are n oted predominantly at the mid to lower lungs. Mild interstitial thickening noted throughout the perihilar regions. No pleural effusion or pneumothorax. Heart/mediastinum: Cardiac carlos houette is of normal size. No mediastinal widening. Bones: No acute osseous abnormality appr eciated. IMPRESSION - Tubes as above. Mixed interstitial and alveolar opacities predominantl y at the mid to lower lungs, may reflect pulmonary edema versus atypical infectious process. Dictated and Signed by: Alin Ramírez MD Electronically signed: 10/03/2017 12:41 PM DIAGNOSES AND ASSESSMENTS: 1. Acute non-ST elevation myocardial infarction, severe in-stent stenosis ostial left circu mflex and proximal LAD: Patient will need coronary revascularization 2. Fever, leukocytosis, hypotension, probable septic shock: Patient clinically improved on broad-spectrum antibiotics with resolution of fever 3. 3. Paroxysmal atrial flutter: Patient starting on IV amiodarone PLAN OR RECOMMENDATIONS: Add metoprolol tartrate 50 mg 3 times a day, continue IV amiodarone loading I appreciate the opportunity of participating in the care of this patient. Delmer Mobley MD, 10/05/17 Demetra Kirk, ALFONSO - 10/05/2017 1553 PSTPt had large BM, became SOB, tachycardic, placed o n BiPap, Nitro gtt started for HTN.Adenosine given x2 Started on Amiodarone. Tommie off, Amio bolus complete. Awaiting cont gtt from pharmacy. Clinton Burnett MD - 10/05/2017 1449 PSTHo spitalist follow-up Patient extubated this afternoon out difficulty to 4 L nasal cannula.Terry Weir MD - 0 10/05/2017 1048 PSTAsked to perform urgent upper endoscopy on this very ill patient. We'll p moisés with upper endoscopy with anesthesia services assisting in monitoring and treating th e patient's 1 dynamics status. Consent form status will be ascertained prior to the procedu re but certainly the patient qualifies for an emergent procedure due to large volume GI blee d in the circumstance of required dual anti platelet therapyClinton Burnett MD - 10/05/2017 0992 PSTFormatting of this note may be different from the original. [facility] Hospitalist Progress Note Bob Hood is a 61 y.o. male ASSESSMENT and PLAN: 1. Influenza/Pneumonia with septic shock Patient currently on ceftriaxone, azithromycin, and Tamiflu. He has a positive screen for influenza B and sputum has been obtained. Sputum currently showing gram-positive cocci in c hains and clusters with clinical improvement we'll continue ceftriaxone only and discontinue azithromycin. Today's dose. 2. Respiratory failure requiring mechanical ventilation Patient did well yesterday with patient and ventilation and may be weanable today. He has a positive Gastroccult and dark OG fluid but is otherwise stable with a myoglobin of 12.4. His baseline hemoglobin appears to be 16 to 17. Patient was converted from once to twice d aily IV Protonix. Discussed case with cardiology and because of his severe and stent stenos is is not recommended that aspirin or clopidogrel be stopped just prior to extubation were g oing to proceed with an endoscopy to rule out lesions in the stomach that can be treated int erventionally to prevent increased bleeding that would necessitate stopping dual antiplatele t therapy 3. Severe ischemic heart disease with acute myocardial infarction Troponin has risen from 12 on admission to 26. Echo shows beer hypokinesis/akinesis of the anterior wall with an EF of 0.4. Radiographically chest x-ray from this a.m. looks good wi th pneumonia resolving and in no cephalization or other changes of CHF. SUBJECTIVE: Patient comfortable on 45 mcg/kg/m of propofol. VITALS: Temp: 37.4 C (99.3 F), Pulse: 87, Resp: 17, BP: 134/72, SpO2 95 % on mechanical ventila tion at flow rate 60L/min Temp Min: 37 C (98.6 F) Max: 38.2 C (100.8 F) Weight: 97 kg (213 lb 13.5 oz) Intake/Output Summary (Last 24 hours) at 10/05/17 0939 Last data filed at 10/05/17 0800 Gross per 24 hour Intake 2696 ml Output 3260 ml Net -564 ml PHYSICAL EXAM: Cardiovascular: Regular rate and rhythm with distant heart sounds Respiratory: Diminished in the bases; otherwise clear Abdomen: Soft without tenderness Extremities: Trace edema DIAGNOSTIC STUDIES: Available data and images were reviewed personally. Significant results and findings are a ddressed here or in the Assessment and Plan. Lab Results Component Value Date HGB 12.4 (L) 10/05/2017 HCT 37.6 (L) 10/05/2017 PLT 126 (L) 10/05/2017 WBC 8.3 10/05/2017 Lab Results Component Value Date NA 142 10/05/2017 K 3.7 10/05/2017 CL 111 (H) 10/05/2017 CO2 25 10/05/2017 CREA 1.19 10/05/2017 BUN 17 10/05/2017 MG 1.9 10/04/2017 BNP 495 (H) 10/03/2017 Glucose, POC Date/Time Value Ref Range Status 10/04/2017 21:12 108 70 - 109 mg/dL Final 10/04/2017 17:16 91 70 - 109 mg/dL Final 10/04/2017 12:23 106 70 - 109 mg/dL Final Glucose, POC Date/Time Value Ref Range Status 10/04/2017 21:12 108 70 - 109 mg/dL Final 10/04/2017 17:16 91 70 - 109 mg/dL Final 10/04/2017 12:23 106 70 - 109 mg/dL Final Xr Chest Ap Portable Result Date: 10/03/2017 CLINICAL INFORMATION: Eval for acute hypoxic respiratory failure. COMPARISON: 03/15/2017. JUSTIN MOE: Portable frontal chest radiograph. Endotracheal tube approximately 4.8 cm from the ca sherron. Enteric tube projecting below the left hemidiaphragm, tip not seen. Side port is note d at the level of the gastric fundus. Lungs: Mixed interstitial and alveolar opacities are n oted predominantly at the mid to lower lungs. Mild interstitial thickening noted throughout the perihilar regions. No pleural effusion or pneumothorax. Heart/mediastinum: Cardiac carlos houette is of normal size. No mediastinal widening. Bones: No acute osseous abnormality appr eciated. IMPRESSION - Tubes as above. Mixed interstitial and alveolar opacities predominantl y at the mid to lower lungs, may reflect pulmonary edema versus atypical infectious process. Dictated and Signed by: Alin Ramírez MD Electronically signed: 10/03/2017 12:41 PM Total time of approximately 25 minutes was spent with the patient and/or patient's family, and/or on the patient's floor/unit, of which more than 50% was spent counseling and/or coord ination the patient's care as outlined above. Clinton Burnett 10/05/2017 9:39 [facility] Portions of this chart may have been created with [employer] voice recognition software. Occasi onal wrong-word or sound-alike substitutions may have occurred due to the inherent canseco itations of voice recognition software. Please read the chart carefully and recognize, using context, where these substitutions have occurred Clinton Burnett MD - 10/04/2017 1241 PSTFormatting of this note may be different from the o riginal. [facility] PMG Hospitalist Progress Note Bob Hood is a 61 y.o. male ASSESSMENT and PLAN: 1. Influenza/Pneumonia with septic shock Patient currently on ceftriaxone, azithromycin, and Tamiflu. He has a positive screen for influenza B and sputum has been obtained. Patient is has been weaned from norepinephrine co nsistent with clinical improvement. Continue current antibiotics pending culture results. 2. Respiratory failure requiring mechanical ventilation We'll begin weaning the patient and currently his SIMV rate is 22 without spontaneous breat hs. With SIMV reduction currently at 16 we are initiating spontaneous breaths. Check an AB G in 30 minutes. Patient has been weaned to a FiO2 of 0.4. 3. Severe ischemic heart disease with acute myocardial infarction Troponin has risen from 12 on admission to 26. Echo shows beer hypokinesis/akinesis of the anterior wall with an EF of 0.4. Radiographically chest x-ray from this a.m. is consistent with either a diffuse interstitial infectious process versus mild pulmonary edema. This is especially in light of the positive pressure ventilation with reduced preload from PEEP. R educe IV fluid rate to 60 cc per hour. Recheck chest x-ray in a.m. and may need diuresis. SUBJECTIVE: Patient comfortable on 45 mcg/kg/m. He is not spontaneously initiating respiratory effor t and was reduced to 35 will be followed. VITALS: Temp: 37.5 C (99.5 F), Pulse: 91, Resp: 22, BP: 108/58, SpO2 92 % on mechanical ventila tion at flow rate 60L/min Temp Min: 36.8 C (98.2 F) Max: 38.4 C (101.1 F) Weight: 97 kg (213 lb 13.5 oz) Intake/Output Summary (Last 24 hours) at 10/04/17 1242 Last data filed at 10/04/17 0546 Gross per 24 hour Intake 2709.4 ml Output 2775 ml Net -65.6 ml PHYSICAL EXAM: Cardiovascular: Regular rate and rhythm with distant heart sounds Respiratory: Diminished in the bases; otherwise clear Abdomen: Soft without tenderness Extremities: Trace edema DIAGNOSTIC STUDIES: Available data and images were reviewed personally. Significant results and findings are a ddressed here or in the Assessment and Plan. Lab Results Component Value Date HGB 13.2 (L) 10/04/2017 HCT 40.5 10/04/2017 PLT 151 10/04/2017 WBC 10.5 10/04/2017 Lab Results Component Value Date NA 140 10/04/2017 K 3.5 10/04/2017 CL 111 (H) 10/04/2017 CO2 23 (L) 10/04/2017 CREA 1.26 10/04/2017 BUN 20 (H) 10/04/2017 MG 1.9 10/04/2017 BNP 495 (H) 10/03/2017 Glucose, POC Date/Time Value Ref Range Status 10/04/2017 12:23 106 70 - 109 mg/dL Final 10/03/2017 21:46 115 (H) 70 - 109 mg/dL Final 10/03/2017 12:23 136 (H) 70 - 109 mg/dL Final Glucose, POC Date/Time Value Ref Range Status 10/04/2017 12:23 106 70 - 109 mg/dL Final 10/03/2017 21:46 115 (H) 70 - 109 mg/dL Final 10/03/2017 12:23 136 (H) 70 - 109 mg/dL Final Xr Chest Ap Portable Result Date: 10/03/2017 CLINICAL INFORMATION: Eval for acute hypoxic respiratory failure. COMPARISON: 03/15/2017. JUSTIN MOE: Portable frontal chest radiograph. Endotracheal tube approximately 4.8 cm from the ca sherron. Enteric tube projecting below the left hemidiaphragm, tip not seen. Side port is note d at the level of the gastric fundus. Lungs: Mixed interstitial and alveolar opacities are n oted predominantly at the mid to lower lungs. Mild interstitial thickening noted throughout the perihilar regions. No pleural effusion or pneumothorax. Heart/mediastinum: Cardiac carlos houette is of normal size. No mediastinal widening. Bones: No acute osseous abnormality appr eciated. IMPRESSION - Tubes as above. Mixed interstitial and alveolar opacities predominantl y at the mid to lower lungs, may reflect pulmonary edema versus atypical infectious process. Dictated and Signed by: Alin Ramírez MD Electronically signed: 10/03/2017 12:41 PM Total time of approximately 25 minutes was spent with the patient and/or patient's family, and/or on the patient's floor/unit, of which more than 50% was spent counseling and/or coord ination the patient's care as outlined above. Clinton Burnett 10/04/2017 12:42 [facility] Portions of this chart may have been created with [employer] voice recognition software. Occasi onal wrong-word or sound-alike substitutions may have occurred due to the inherent canseco itations of voice recognition software. Please read the chart carefully and recognize, using context, where these substitutions have occurred Sandy Ogden RN - 10/04/2017 1138 PSTRN pulled right femoral artery sheath using sterile technique, held pressure for 15 minutes transparent dressing with non-stick telfa placed to site. No noted bleeding or hematoma to site. Demetra Ruff RN, RN - 10/04/2017 1130 PSTFebrile, temp 38.4. Tylenol given per order. Cooli ng measures initiated. Delmer Mobley MD - 10/04/2017 1049 PSTFormatting of this note may be different from the original. PATIENT NAME: Bob Hood : 1955: AGE: 61 y.o. ADMISSION DATE: 10/03/2017 HOSPITAL DAY NUMBER: 1 PRIMARY CARE: Chato Matson MD CARDIOLOGY PROGRESS NOTE Patient remains sedated and mechanically ventilated. Patient was successfully weaned off L evothroid yesterday and currently has systolic blood pressures ranging from 128-150, sinus r hythm 80-100 bpm, afebrile today. Troponin level26.62 at 23:28 yesterday MEDICATIONS: Current Facility-Administered Medications Medication Dose Route Frequency Provider Last Rate Last Dose acetaminophen (TYLENOL) tablet 650 mg 650 mg Per OG Tube Q6H PRN Herman Masterson MD 6 50 mg at 10/03/17 2336 aspirin chewable tablet 81 mg 81 mg Per OG Tube Daily Ganga Lind MD 81 mg at 0 10/04/17 0807 atorvaSTATin (LIPITOR) tablet 40 mg 40 mg Per OG Tube Daily Ganga Lind MD 40 m g at 10/04/17 0807 azithromycin (ZITHROMAX) 500 mg in sodium chloride 0.9% 250 mL IVPB 500 mg Intravenous Daily Ganga Lind MD 255 mL/hr at 10/04/17 0843 500 mg at 10/04/17 0843 cefTRIAXone (ROCEPHIN) 2 g in sodium chloride 0.9% 50 mL IVPB 2 g Intravenous Daily An hilda Lind MD 100 mL/hr at 10/04/17 0806 2 g at 10/04/17 0806 clopidogrel (PLAVIX) tablet 75 mg 75 mg Per OG Tube Daily Ganga Lind MD 75 mg at 10/04/17 0807 dextrose 50% injection 12.5 g 12.5 g Intravenous PRN Ganga Lind MD enoxaparin (LOVENOX) 40 mg/0.4 mL injection 40 mg 40 mg Subcutaneous Daily Ganga melgar MD 40 mg at 10/04/17 0808 fentaNYL (PF) injection 25-50 mcg 25-50 mcg Intravenous Q1H PRN Herman Masterson MD 50 mcg at 10/04/17 0930 insulin lispro (humaLOG KWIKPEN) 100 units/mL injection (pen) 0-6 Units 0-6 Units Subc utaneous 4x Daily WC and HS Ganga Lind MD lactated ringers (LR) infusion Intravenous Continuous Ganga Lind MD 100 mL/hr a t 10/03/17 214 lidocaine 1%-EPINEPHrine 1:100,000 injection 5 mL 5 mL Infiltration Once PRN Delmer Dai MD nitroglycerin (NITROSTAT) SL tablet 0.4 mg 0.4 mg Sublingual Q5 Min PRN Delmer Dai MD norepinephrine in NS (LEVOPHED) 16 mcg/mL infusion 1-30 mcg/min Intravenous Titrated A dalia Lind MD Stopped at 10/03/17 2125 oseltamivir (TAMIFLU) 6 mg/mL suspension 30 mg 30 mg Per OG Tube BID Ganga Lind MD 30 mg at 10/04/17 0807 pantoprazole (PROTONIX) injection 40 mg 40 mg Intravenous Daily Ganga Lind MD 40 mg at 10/04/17 0808 propofol infusion (DIPRIVAN) 10 mg/mL infusion 10-70 mcg/kg/min (Order-Specific) Intra venous Titrated Ganga Lind MD 29.1 mL/hr at 10/04/17 0804 50 mcg/kg/min at 10/04/17 08 04 ALLERGIES No Known Allergies PHYSICAL EXAM Vital signs: Vitals: 10/04/17 1004 BP: 108/58 Pulse: 91 Resp: 22 Temp: Admit Weight: Weight: 97 kg (213 lb 13.5 oz) Current weight: Weight: 97 kg (213 lb 13.5 oz) Body mass index is 30.68 kg/m. General: Sedated Chest: Clear anteriorly Cardiovascular: Regular rhythm, no S3 Gastrointestinal: Abdomen soft, non-tender, normal bowel sounds Extremities: No edema LABS: Admission on 10/03/2017 Component Date Value Ref Range Status WBC 10/03/2017 24.2* 4.0 - 11.0 K/uL Final RBC 10/03/2017 5.56 4.30 - 5.70 M/uL Final Hgb 10/03/2017 16.8 13.5 - 18.0 g/dL Final Hct 10/03/2017 50.3 40.0 - 51.0 % Final MCV 10/03/2017 90.5 83.0 - 101.0 fL Final MCH 10/03/2017 30.1 28.0 - 35.0 pg Final MCHC 10/03/2017 33.3 32.0 - 36.0 g/dL Final RDW-CV 10/03/2017 16.2* <15.0 % Final Platelet Count 10/03/2017 193 140 - 440 K/uL Final MPV 10/03/2017 8.4 fL Final % Neutrophils 10/03/2017 91.0* 45.0 - 82.0 % Final % Lymphocytes 10/03/2017 2.6* 20.0 - 45.0 % Final % Monocytes 10/03/2017 6.0 4.0 - 12.0 % Final % Eosinophils 10/03/2017 0.0 0.0 - 5.0 % Final % Basophils 10/03/2017 0.4 0.0 - 1.0 % Final Absolute Neutrophils 10/03/2017 22.00* 1.80 - 8.50 K/uL Final Absolute Lymphocytes 10/03/2017 0.60 0.60 - 3.20 K/uL Final Absolute Monocytes 10/03/2017 1.40* 0.00 - 1.00 K/uL Final Absolute Eosinophils 10/03/2017 0.00 0.00 - 0.40 K/uL Final Absolute Basophils 10/03/2017 0.10 0.00 - 0.10 K/uL Final NA 10/03/2017 139 136 - 149 mmol/L Final K 10/03/2017 5.9* 3.5 - 5.1 mmol/L Final CL 10/03/2017 109 98 - 109 mmol/L Final CO2 10/03/2017 18* 24 - 31 mmol/L Final ANION GAP 10/03/2017 12 3 - 16 mmol/L Final GLUCOSE 10/03/2017 165* 70 - 109 mg/dL Final BUN 10/03/2017 25* 7 - 18 mg/dL Final Creatinine, Serum/Plasma 10/03/2017 1.55* 0.60 - 1.30 mg/dL Final eGFR if not 10/03/2017 46* >=60 mL/min/1.73m2 Final CALCIUM 10/03/2017 8.3 8.3 - 10.5 mg/dL Final BUN/CREA 10/03/2017 16.1 Final Protime 10/03/2017 14.1* 11.3 - 13.9 seconds Final INR 10/03/2017 1.10 0.90 - 1.10 Final BILIRUBIN TOTAL 10/03/2017 0.6 0.1 - 1.5 mg/dL Final Total protein 10/03/2017 6.5 6.0 - 7.8 g/dL Final ALBUMIN 10/03/2017 3.4 3.2 - 5.0 g/dL Final AST 10/03/2017 77* 10 - 42 U/L Final ALT 10/03/2017 29 6 - 45 U/L Final ALK PHOS 10/03/2017 89 40 - 110 U/L Final GLOBULIN 10/03/2017 3.1 2.1 - 3.8 g/dL Final Albumin/Globulin ratio 10/03/2017 1.1 0.8 - 2.0 Final Bilirubin, Direct 10/03/2017 0.20 0.00 - 0.20 mg/dl Final PH TEMP CORRECTED 10/03/2017 7.21 Final PCO2 TEMP CORRECTED 10/03/2017 55 mmHg Final PO2 TEMP CORRECTED 10/03/2017 100 mmHg Final pH, Arterial 10/03/2017 7.21* 7.35 - 7.45 Final pCO2, Arterial 10/03/2017 55* 35 - 45 mm Hg Final pO2, Arterial 10/03/2017 100 >=60 mm Hg Final HCO3, Arterial 10/03/2017 21.1 18.0 - 23.0 mmol/L Final Base Excess, Arterial 10/03/2017 <-5.0* -2.0 - 2.0 mmol/L Final O2 Saturation, Arterial 10/03/2017 96 95 - 98 % Final Hemoglobin, Arterial 10/03/2017 16.7 g/dL Final Oxygenhemoglobin, Arterial 10/03/2017 94.3 90.0 - 100.0 % Final Methemoglobin, Arterial 10/03/2017 1.2 0.0 - 1.5 % Final Carboxyhemoglobin, Arterial 10/03/2017 1.0 0.0 - 1.5 % Final FiO2 10/03/2017 100.0 % Final Culture 10/03/2017 No growth: Monitored continually by instrument for 5 days Prelimin maciej Culture 10/03/2017 No growth: Monitored continually by instrument for 5 days Prelimin maciej BNP 10/03/2017 495* <100 pg/mL Final Troponin I 10/03/2017 12.50* <0.06 ng/mL Final Troponin I 10/03/2017 25.23* <0.06 ng/mL Final Troponin I 10/03/2017 26.62* <0.06 ng/mL Final LACTATE 10/03/2017 1.2 0.5 - 2.2 mmol/L Final LVEF-TTE TRANSTHORACIC ECHO 10/03/2017 39 Final Lactoferrin, Qual 10/03/2017 Negative Negative Final Clostridium Difficile GDH Antigen 10/03/2017 Negative Negative Final C. Diff Toxin A/B EIA 10/03/2017 Negative Negative Final SHIGATOXIN I 10/03/2017 Negative Negative Final SHIGATOXIN II 10/03/2017 Negative Negative Final Culture 10/03/2017 Culture in progress... Preliminary Culture 10/03/2017 1+ Usual Thanh Preliminary Campylobacter AG, Qual 10/03/2017 Negative Negative Final VENTRICULAR RATE EKG 10/03/2017 124 BPM Final ATRIAL RATE 10/03/2017 124 BPM Final P-R INTERVAL 10/03/2017 156 ms Final QRS DURATION 10/03/2017 146 ms Final Q-T INTERVAL 10/03/2017 318 ms Final Q-T INTERVAL (CORRECTED) 10/03/2017 456 ms Final P WAVE AXIS 10/03/2017 64 degrees Final QRS AXIS 10/03/2017 4 degrees Final T AXIS 10/03/2017 117 degrees Final INTERPRETATION TEXT 10/03/2017 Final Value:Sinus tachycardia Left bundle branch block Abnormal ECG When compared with ECG of 04-MAY-2017 15:20, premature ventricular complexes are no longer present Vent. rate has increased BY 43 BPM Left bundle branch block is now present :consider ischemia/infarction Confirmed by ZOHRA BREWER, FLORY ([id number]) on 10/04/2017 10:35:54 AM Influenza A PCR 10/03/2017 Negative Negative Final Influenza B PCR 10/03/2017 Positive* Negative Final Gram Stain Result 10/03/2017 1+ White Blood Cells Preliminary Gram Stain Result 10/03/2017 1+ Epithelial cells Preliminary Gram Stain Result 10/03/2017 2+ Gram positive cocci in chains Preliminary Gram Stain Result 10/03/2017 2+ Gram positive cocci in clusters Preliminary Culture 10/03/2017 Negative for MRSA by chromogenic agar method Final COLOR 10/03/2017 Straw Light Yellow, Yellow, Straw Final CLARITY 10/03/2017 Clear Clear Final PH UA 10/03/2017 5.0 5.0 - 8.0 Final Specific [place] 10/03/2017 1.006 1.001 - 1.030 Final PROTEIN UA 10/03/2017 Negative Negative Final BLOOD UA 10/03/2017 Small* Negative Final GLUCOSE UA 10/03/2017 Negative Negative Final KETONES UA 10/03/2017 Negative Negative Final BILIRUBIN UA 10/03/2017 Negative Negative Final NITRITE UA 10/03/2017 Negative Negative Final LEUKOCYTES ESTERASE UA 10/03/2017 Negative Negative Final UROBILINOGEN UA 10/03/2017 Negative 0.2 mg/dL, 1.0 mg/dL, Negative Final WBC UA 10/03/2017 2-5* 0 - 2 /HPF Final RBC UA 10/03/2017 5-10* 0 - 2 /HPF Final SQUAMOUS EPITHELIAL UA 10/03/2017 0-2 0 - 2 /LPF Final BACTERIA UA 10/03/2017 Negative Negative /HPF Final MUCUS UA 10/03/2017 Present* Negative /LPF Final HYALINE CASTS UA 10/03/2017 0-2 0 - 2 /LPF Final RBC MORPHOLOGY 10/03/2017 Normal Final WBC MORPHOLOGY 10/03/2017 Normal Final PLT MORPHOLOGY 10/03/2017 Normal Final Glucose, POC 10/03/2017 136* 70 - 109 mg/dL Final Procalcitonin 10/03/2017 3.53* <=0.50 ng/mL Final NA 10/03/2017 138 136 - 149 mmol/L Final K 10/03/2017 4.3 3.5 - 5.1 mmol/L Final CL 10/03/2017 111* 98 - 109 mmol/L Final CO2 10/03/2017 21* 24 - 31 mmol/L Final ANION GAP 10/03/2017 6 3 - 16 mmol/L Final GLUCOSE 10/03/2017 143* 70 - 109 mg/dL Final BUN 10/03/2017 23* 7 - 18 mg/dL Final Creatinine, Serum/Plasma 10/03/2017 1.42* 0.60 - 1.30 mg/dL Final eGFR if not 10/03/2017 51* >=60 mL/min/1.73m2 Final CALCIUM 10/03/2017 7.6* 8.3 - 10.5 mg/dL Final BUN/CREA 10/03/2017 16.2 Final NA 10/04/2017 140 136 - 149 mmol/L Final K 10/04/2017 3.5 3.5 - 5.1 mmol/L Final CL 10/04/2017 111* 98 - 109 mmol/L Final CO2 10/04/2017 23* 24 - 31 mmol/L Final ANION GAP 10/04/2017 6 3 - 16 mmol/L Final GLUCOSE 10/04/2017 141* 70 - 109 mg/dL Final BUN 10/04/2017 20* 7 - 18 mg/dL Final Creatinine, Serum/Plasma 10/04/2017 1.26 0.60 - 1.30 mg/dL Final eGFR if not 10/04/2017 58* >=60 mL/min/1.73m2 Final CALCIUM 10/04/2017 8.1* 8.3 - 10.5 mg/dL Final BUN/CREA 10/04/2017 15.9 Final WBC 10/04/2017 10.5 4.0 - 11.0 K/uL Final RBC 10/04/2017 4.49 4.30 - 5.70 M/uL Final Hgb 10/04/2017 13.2* 13.5 - 18.0 g/dL Final Hct 10/04/2017 40.5 40.0 - 51.0 % Final MCV 10/04/2017 90.3 83.0 - 101.0 fL Final MCH 10/04/2017 29.5 28.0 - 35.0 pg Final MCHC 10/04/2017 32.6 32.0 - 36.0 g/dL Final RDW-CV 10/04/2017 16.0* <15.0 % Final Platelet Count 10/04/2017 151 140 - 440 K/uL Final MPV 10/04/2017 8.1 fL Final % Neutrophils 10/04/2017 79.9 45.0 - 82.0 % Final % Lymphocytes 10/04/2017 10.2* 20.0 - 45.0 % Final % Monocytes 10/04/2017 9.8 4.0 - 12.0 % Final % Eosinophils 10/04/2017 0.0 0.0 - 5.0 % Final % Basophils 10/04/2017 0.1 0.0 - 1.0 % Final Absolute Neutrophils 10/04/2017 8.40 1.80 - 8.50 K/uL Final Absolute Lymphocytes 10/04/2017 1.10 0.60 - 3.20 K/uL Final Absolute Monocytes 10/04/2017 1.00 0.00 - 1.00 K/uL Final Absolute Eosinophils 10/04/2017 0.00 0.00 - 0.40 K/uL Final Absolute Basophils 10/04/2017 0.00 0.00 - 0.10 K/uL Final MG 10/04/2017 1.9 1.8 - 2.5 mg/dL Final Glucose, POC 10/03/2017 115* 70 - 109 mg/dL Final IMAGING: Xr Chest Ap Portable Result Date: 10/03/2017 CLINICAL INFORMATION: Eval for acute hypoxic respiratory failure. COMPARISON: 03/15/2017. FIN DINGS: Portable frontal chest radiograph. Endotracheal tube approximately 4.8 cm from the ca sherron. Enteric tube projecting below the left hemidiaphragm, tip not seen. Side port is note d at the level of the gastric fundus. Lungs: Mixed interstitial and alveolar opacities are n oted predominantly at the mid to lower lungs. Mild interstitial thickening noted throughout the perihilar regions. No pleural effusion or pneumothorax. Heart/mediastinum: Cardiac carlos houette is of normal size. No mediastinal widening. Bones: No acute osseous abnormality appr eciated. IMPRESSION - Tubes as above. Mixed interstitial and alveolar opacities predominantl y at the mid to lower lungs, may reflect pulmonary edema versus atypical infectious process. Dictated and Signed by: Alin Ramírez MD Electronically signed: 10/03/2017 12:41 PM DIAGNOSES AND ASSESSMENTS: 1. Fever, leukocytosis, probable pneumonitis, hypertension: Blood pressure more stable off pressors, fever resolved 2. Acute non-ST elevation myocardial infarction: Troponin level has risen from yesterday. PLAN OR RECOMMENDATIONS: Repeat ECG, repeat portable chest x-ray Continue following troponin level Remove right femoral arterial sheath I appreciate the opportunity of participating in the care of this patient. Delmer Mobley MD, 10/04/2017 10:49 1 hour is a hazy she is yesterdayRobKelly platt, PharmD - 10/03/20174 PSTFormatting of this note may be different from the original. PHARMACY SERVICES: ADMISSION MEDICATION REVIEW Bob Hood is a 61 y.o. male admitted on 10/03/17. Patient is not a reliable historian. Location of Patient when reviewed: ED X Medical Floor Patient s prior to admit medication and over the counter (OTC) medications/herbal supplem ents list obtained from: X Patient not interviewed or unable to supply information due to: Intubated X Pharmacy list names: [facility] and [facility] X [employer] insurance reported information X Outside Information X Other sources: Verbal interview with , [place] Vaccines up to date? Yes No Unsure Influenza x Pneumococcal x Tdap x Shingles x Noted medications discrepancies or medication-related issues: Dosage change: Medication: Prior to Admission Sig: Correct sig: Aspirin 81 mg tab Take by mouth daily 1 tab by mouth daily Atorvastatin 40 mg tab Take by mouth daily 1 tab by mouth nightly Metformin 500 mg tab Take by mouth twice daily 1 tab by mouth twice daily Ranitidine 300 mg tab Take by mouth nightly 1 tab by mouth nightly Tramadol 50 mg tab As needed 2 tabs by mouth three times daily as needed for pain Medication added: Medication: Prior to Admission Sig: Patient taking differently as: Ergocalciferol 50,000 unit cap 1 cap by mouth once weekly (on ) Gabapentin 300 mg cap 2 caps by mouth 3 times daily Hydrocodone-acetaminophen 10-325 mg tab 1 tab by mouth three times daily as needed for pain Patient taking 3 times daily as scheduled dose due to increased leg pain Naloxone 4 mg/spray 4 mg by nasal route as needed for suspected pain medication overdose Worioud-mhxpyddlzejyx-gsnkoiqu 250-250-65 mg tab 1 tab by mouth every 6 hours as needed for pain Ketorolac 0.5% ophth amanda 1 drop into left eye four times daily. Start 3 days prior to surge ry. Continue using after surgery. Prednisolone acetate 1% ophth susp 1 drop into left eye four times daily. Start after surge ry Removed therapy: Medication: Prior to Admission Sig: Reason for Removal: Cholecalciferol po 500 mg by mouth once a week Incorrect selection Gabapentin po 2 caps by mouth three times daily Strength adjustment Other: brought in both eye drops for patient. Wants to use own medication so they do not g et charged for extra and so they do not go to waste. 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 The patient has prior anterior and apical infarction secondary to his LAD occlusion in March 2017 . Echocardiography shows old anterior apical and anteroseptal infarction with moderate left ventricular systolic dysfunction with an estimated ejection fraction of 35-40% which is not significantly changed from his previous echocardiogram. Left ventricular end-diastolic pre ssure was measured at 14 mmHg which is not consistent with decompensated congestive heart fa ilure. Given the patient's presentation with acute respiratory failure, fever, leukocytosis , and pulmonary infiltrates, the patient is likely developing septic shock from acute pneumo nitis. The patient's troponin elevations are likely related to coronary hypoperfusion relat ed to his hypotension in combination with the in-stent stenosis lesions. I recommend the pa tient be supported with intravenous fluids and pressors as well as broad-spectrum antibiotic s. I would defer coronary revascularization at this point without further evidence of cardi ac decompensation. I'll be happy to follow this patient during his admission for his cardio logy care.Clarita Mckeon, PharmD - 10/03/2017 1144 PSTFormatting of this note may be differe nt from the original. RENAL DOSE ADJUSTMENT PER PHARMACY PROTOCOL: Subjective/Objective: Bob Hood is a 61 y.o. year old male admitted on 10/03/2017 9:31 and is receiving Tamiflu . BP 109/73 | Pulse 109 | Temp 37 C (98.6 F) (Oral) | Resp 22 | Wt 97 kg (213 lb 13.5 oz) | SpO2 96% | BMI 30.68 kg/m No intake or output data in the 24 hours ending 10/03/17 1142No results for input(s): CREA in the last 168 hours.CrCl cannot be calculated (No order found.). Date 10/03 Day of therapy 1 Serum Creatinine 1.68 CrCl (mL/min) ~53 Dose - current 75 mg BID Dose - new 30 mg BID Assessment/Plan: 1. For creatinine clearance 30-60 mL/min, decrease dose of Tamiflu from 75mg BID to 30mg B ID. 2. Pharmacy will continue to follow and adjust dose as appropriate to clinical condition an d creatinine clearance changes RENAL DOSE ADJUSTMENT PROTOCOL Electronically signed by: Clarita Ford Chi, Matias 10/03/2017 11:42 in this encounter Plan of Treatment +--------+ + + + + | Date | Type | Specialty | Care Team | Description | +--------+ + + + + | 12/17/ | Office | Cardiac | Randy Figueroa, | | | 2017 | Visit | Rehabilitation | MD Javid [address]o | | | | | | [facility] [place], | | | | | | [place] [address] | | | | | | [phone] | | | | | | | | +--------+ + + + + | 12/24/ | Office | Cardiac | Randy Figueroa, | | | 2017 | Visit | Rehabilitation | MD Javid [address]respo | | | | | | [facility] [place], | | | | | | [place] [address] | | | | | | [phone] | | | | | | | | +--------+ + + + + | 12/31/ | Office | Cardiac | Randy Figueroa, | | | 2017 | Visit | Rehabilitation | MD Javid [address]respo | | | | | | [facility], | | | | | | [place] [address] | | | | | | [phone] | | | | | | | | +--------+ + + + + | 01/07/ | Office | Cardiac | Randy Figueroa, | | | 2017 | Visit | Rehabilitation | MD Javid Crespo | | | | | | [facility], | | | | | | [place] [address] | | | | | | [phone] | | | | | | | | +--------+ + + + + | 01/13/ | Clinical | Cardiology | | | | 2018 | Support | | | | +--------+ + + + + | 01/13/ | Office | Cardiology | Jenny, | | | 2017 | Visit | | [address] | | | | | | [place], | | | | | | [place] [address] | | | | | | [phone] | | | | | | | | +--------+ + + + + | 01/14/ | Office | Cardiac | Randy Figueroa, | | | 2017 | Visit | Rehabilitation | MD Javid Crespo | | | | | | [place], | | | | | | [place] [address] | | | | | | [phone] | | | | | | | | +--------+ + + + + | 01/21/ | Office | Cardiac | Randy Figueroa, | | | 2017 | Visit | Rehabilitation | MD Javid Crespo | | | | | | [place], | | | | | | [place] [address] | | | | | | [phone] | | | | | | | | +--------+ + + + + | 01/28/ | Office | Cardiac | Randy Figueroa, | | | 2017 | Visit | Rehabilitation | [address] | | | | | | [place], | | | | | | [place] [address] | | | | | | [phone] | | | | | | | | +--------+ + + + + | 02/04/ | Office | Cardiac | Randy Figueroa, | | | 2017 | Visit | Rehabilitation | MD [address] | | | | | | [place], | | | | | | [place] [address] | | | | | | [phone] | | | | | | | | +--------+ + + + + | 02/11/ | Office | Cardiac | Randy Figueroa, | | | 2017 | Visit | Rehabilitation | MD [address] | | | | | | [place], | | | | | | [place] [address] | | | | | | [phone] | | | | | | | | +--------+ + + + + | 02/18/ | Office | Cardiac | Randy Figueroa, | | | 2017 | Visit | Rehabilitation | MD Javid [address]respo | | | | | | [place], | | | | | | [place] [address] | | | | | | [phone] | | | | | | | | +--------+ + + + + | 02/24/ | Procedure | Physical Medicine | Prosper Esteves | | | 2017 | visit | and Rehabilitation | [place], [address] | | | | | | [place] | | | | | | [address] | | | | | | | | +--------+ + + + + | 02/25/ | Office | Cardiac | Randy Figueroa, | | | 2017 | Visit | Rehabilitation | MD Javid [address]o | | | | | | [place], | | | | | | [place] [address] | | | | | | [phone] | | | | | | | | +--------+ + + + + | 03/04/ | Office | Cardiac | Randy Figueroa, | | | 2017 | Visit | Rehabilitation | MD [address] | | | | | | [place], | | | | | | [place] [address] | | | | | | [phone] | | | | | | | | +--------+ + + + + | 03/11/ | Office | Cardiac | Randy Fgiueroa, | | | 2017 | Visit | Rehabilitation | MD [address] | | | | | | [place], | | | | | | [place] [address] | | | | | | [phone] | | | | | | | | +--------+ + + + + as of this encounter Procedures + +--------+ + + + | Procedure Name | Priori | Date/Time | Associated Diagnosis | Comments | | | ty | | | | + +--------+ + + + | EGD | | 10/05/2017 | Acute upper GI | | | | | 1159 PST | bleeding | | + +--------+ + + + in this encounter Results POC Glucose (10/10/2017 1142) + +---------+ + | Component | Value | Ref Range | + +---------+ + | Glucose, POC | 127 (H) | 70 - 109 mg/dL | + +---------+ + + + + | Specimen | Performing Laboratory | + + + | Blood | [facility] [address] | | | [place] [address] | + + + POC Glucose (10/10/2017635) + +-------+ + | Component | Value | Ref Range | + +-------+ + | Glucose, POC | 108 | 70 - 109 mg/dL | + +-------+ + + + + | Specimen | Performing Laboratory | + + + | Blood | [facility] [address] | | | [place] [address] | + + + POC Glucose (10/09/20172041) + +---------+ + | Component | Value | Ref Range | + +---------+ + | Glucose, POC | 125 (H) | 70 - 109 mg/dL | + +---------+ + + + + | Specimen | Performing Laboratory | + + + | Blood | [facility] [address] | | | [place] [address] | + + + POC Glucose (10/09/2017 1659) + +-------+ + | Component | Value | Ref Range | + +-------+ + | Glucose, POC | 97 | 70 - 109 mg/dL | + +-------+ + + + + | Specimen | Performing Laboratory | + + + | Blood | [facility] [address] | | | [place] [address] | + + + POC Glucose (10/09/20175) + +---------+ + | Component | Value | Ref Range | + +---------+ + | Glucose, POC | 148 (H) | 70 - 109 mg/dL | + +---------+ + + + + | Specimen | Performing Laboratory | + + + | Blood | [facility] [address] | | | [place] [address] | + + + POC Glucose (10/09/201738) + +-------+ + | Component | Value | Ref Range | + +-------+ + | Glucose, POC | 109 | 70 - 109 mg/dL | + +-------+ + + + + | Specimen | Performing Laboratory | + + + | Blood | [facility] [address] | | | [place] [address] | + + + Extra Lavender Top Tube (10/09/2017 0505) + +-------+ + | Component | Value | Ref Range | + +-------+ + | Extra Lavender Top | Done | | | Tube | | | + +-------+ + + + + | Specimen | Performing Laboratory | + + + | Blood | [facility] [address] | | | [place] [address] | + + + Basic Metabolic Panel (10/09/2017 0505) + + + + | Component | Value | Ref Range | + + + + | NA | 136 | 136 - 149 mmol/L | + + + + | K | 3.5 | 3.5 - 5.1 mmol/L | + + + + | CL | 105 | 98 - 109 mmol/L | + + + + | CO2 | 24 | 24 - 31 mmol/L | + + + + | ANION GAP | 7 | 3 - 16 mmol/L | + + + + | GLUCOSE | 107 | 70 - 109 mg/dL | + + + + | BUN | 26 (H) | 7 - 18 mg/dL | + + + + | Creatinine, | 1.23 | 0.60 - 1.30 mg/dL | | Serum/Plasma | | | + + + + | eGFR if not | 60Comment: GLOMERULAR FILTRATION | >=60 mL/min/1.73m2 | | [place] | RATE,ESTIMATED mL/min/1.23u5Lfmv than | | | | 60 Chronic kidney disease,if found over | | | | a 3-month period.Less than 15 Kidney | | | | failureFor Americans,multiply the | | | | calculated GFR by 1.21. | | | | | | | | | | + + + + | CALCIUM | 8.2 (L) | 8.3 - 10.5 mg/dL | + + + + | BUN/CREA | 21.1 | | + + + + + + + | Specimen | Performing Laboratory | + + + | Blood | [facility] [address] | | | [place] [address] | + + + POC Glucose (10/08/20172110) + +---------+ + | Component | Value | Ref Range | + +---------+ + | Glucose, POC | 120 (H) | 70 - 109 mg/dL | + +---------+ + + + + | Specimen | Performing Laboratory | + + + | Blood | [facility] [address] | | | [place] [address] | + + + POC Glucose (10/08/20171656) + +-------+ + | Component | Value | Ref Range | + +-------+ + | Glucose, POC | 96 | 70 - 109 mg/dL | + +-------+ + + + + | Specimen | Performing Laboratory | + + + | Blood | [facility] [address] | | | [place] [address] | + + + POC Glucose (10/08/2017 111) + +---------+ + | Component | Value | Ref Range | + +---------+ + | Glucose, POC | 146 (H) | 70 - 109 mg/dL | + +---------+ + + + + | Specimen | Performing Laboratory | + + + | Blood | [facility] [address] | | | [place] [address] | + + + POC Glucose (10/08/2017627) + +-------+ + | Component | Value | Ref Range | + +-------+ + | Glucose, POC | 99 | 70 - 109 mg/dL | + +-------+ + + + + | Specimen | Performing Laboratory | + + + | Blood | [facility] [address] | | | [place] [address] | + + + POC Glucose (10/07/20172036) + +---------+ + | Component | Value | Ref Range | + +---------+ + | Glucose, POC | 115 (H) | 70 - 109 mg/dL | + +---------+ + + + + | Specimen | Performing Laboratory | + + + | Blood | [facility] [address] | | | [place] [address] | + + + POC Glucose (10/07/2017 1627) + +---------+ + | Component | Value | Ref Range | + +---------+ + | Glucose, POC | 110 (H) | 70 - 109 mg/dL | + +---------+ + + + + | Specimen | Performing Laboratory | + + + | Blood | [facility] [address] | | | [place] [address] | + + + POC Glucose (10/07/2017 1147) + +---------+ + | Component | Value | Ref Range | + +---------+ + | Glucose, POC | 114 (H) | 70 - 109 mg/dL | + +---------+ + + + + | Specimen | Performing Laboratory | + + + | Blood | [facility] [address] | | | [place] [address] | + + + POC Glucose (10/07/2017737) + +-------+ + | Component | Value | Ref Range | + +-------+ + | Glucose, POC | 104 | 70 - 109 mg/dL | + +-------+ + + + + | Specimen | Performing Laboratory | + + + | Blood | [facility] [address] | | | [place] [address] | + + + Magnesium (10/07/2017350) + +-------+ + | Component | Value | Ref Range | + +-------+ + | MG | 1.9 | 1.8 - 2.5 mg/dL | + +-------+ + + + + | Specimen | Performing Laboratory | + + + | Blood | [facility] [address] | | | [place] [address] | + + + Basic Metabolic Panel (10/07/2017350) + + + + | Component | Value | Ref Range | + + + + | NA | 141 | 136 - 149 mmol/L | + + + + | K | 3.7 | 3.5 - 5.1 mmol/L | + + + + | CL | 109 | 98 - 109 mmol/L | + + + + | CO2 | 20 (L) | 24 - 31 mmol/L | + + + + | ANION GAP | 12 | 3 - 16 mmol/L | + + + + | GLUCOSE | 198 (H) | 70 - 109 mg/dL | + + + + | BUN | 23 (H) | 7 - 18 mg/dL | + + + + | Creatinine, | 1.29 | 0.60 - 1.30 mg/dL | | Serum/Plasma | | | + + + + | eGFR if not | 56 (L)Comment: GLOMERULAR FILTRATION | >=60 mL/min/1.73m2 | | [place] | RATE,ESTIMATED mL/min/1.86p4Wqfa than | | | | 60 Chronic kidney disease,if found over | | | | a 3-month period.Less than 15 Kidney | | | | failureFor Americans,multiply the | | | | calculated GFR by 1.21. | | | | | | | | | | + + + + | CALCIUM | 8.0 (L) | 8.3 - 10.5 mg/dL | + + + + | BUN/CREA | 17.8 | | + + + + + + + | Specimen | Performing Laboratory | + + + | Blood | [facility] [address] | | | [place] [address] | + + + CBC with Differential (10/07/2017350) + + + + | Component | Value | Ref Range | + + + + | WBC | 10.9 | 4.0 - 11.0 K/uL | + + + + | RBC | 4.81 | 4.30 - 5.70 M/uL | + + + + | Hgb | 14.3 | 13.5 - 18.0 g/dL | + + + + | Hct | 43.3 | 40.0 - 51.0 % | + + + + | MCV | 89.9 | 83.0 - 101.0 fL | + + + + | MCH | 29.7 | 28.0 - 35.0 pg | + + + + | MCHC | 33.0 | 32.0 - 36.0 g/dL | + + + + | RDW-CV | 15.3 (H) | <15.0 % | + + + + | Platelet Count | 178 | 140 - 440 K/uL | + + + + | MPV | 8.5 | fL | + + + + | % Neutrophils | 80.5 | 45.0 - 82.0 % | + + + + | % Lymphocytes | 10.6 (L) | 20.0 - 45.0 % | + + + + | % Monocytes | 7.1 | 4.0 - 12.0 % | + + + + | % Eosinophils | 1.5 | 0.0 - 5.0 % | + + + + | % Basophils | 0.3 | 0.0 - 1.0 % | + + + + | Absolute Neutrophils | 8.80 (H) | 1.80 - 8.50 K/uL | + + + + | Absolute Lymphocytes | 1.20 | 0.60 - 3.20 K/uL | + + + + | Absolute Monocytes | 0.80 | 0.00 - 1.00 K/uL | + + + + | Absolute Eosinophils | 0.20 | 0.00 - 0.40 K/uL | + + + + | Absolute Basophils | 0.00 | 0.00 - 0.10 K/uL | + + + + + + + | Specimen | Performing Laboratory | + + + | Blood | [facility] [address] | | | [place] [address] | + + + POC Blood Gases (10/07/2017 0338) + + + + | Component | Value | Ref Range | + + + + | Specimen Source | Artery | | + + + + | pH, POC | 7.398 | 7.3 - 7.45 | + + + + | HCO3, POC | 19.3 (L) | 21.0 - 28.0 mmol/L | + + + + | TCO2, POC | 20.3 (L) | 22.0 - 29.0 mmol/L | + + + + | Base Excess, POC | -4.2 (L) | -2.0 - 3.0 mmol/L | + + + + | Base Excess, | -5.5 (L) | -2.0 - 3.0 mmol/L | | Extracellular fluid, | | | | POC | | | + + + + | O2 Sat, POC | 96 | 90 - 100 % | + + + + | PCO2, POC | 31.3 (L) | 35.0 - 50.0 mmHg | + + + + | PO2, POC | 78.4 (H) | 25.0 - 50.0 mmHg | + + + + + + + | Specimen | Performing Laboratory | + + + | | [facility] [address] | | | [place] [address] | + + + XR Chest AP Portable (10/07/2017 0331) + + | Narrative | + + | EXAM: XR CHEST AP PORTABLE dated 10/07/2017 3:31 AM HISTORY: hypoxia | | Comparison: October 06 and October 05, 2017 TECHNIQUE: A single portable view of the | | chest. FINDINGS: The lungs are symmetrically aerated. Interval progression | | of interstitial and airspace opacities. Air bronchograms in the left lower | | lung. These are symmetric in the left lung but diffusely throughout both | | lungs. No large pleural effusion. No pneumothorax. The cardiac and mediastinal | | contours are not enlarged. No visible acute osseous abnormalities. IMPRESSION - | | Progressive interstitial and airspace opacities. These could be due to | | cardiogenic or noncardiogenic pulmonary edema. These could be due to atypical | | pneumonia. The findings could be related to a combined pathology. Dictated and | | Signed by: Terry Swift MD Electronically signed: 10/07/2017 9:11 AM | + + + + | Procedure Note | + + | Sebastian, Rad Results In - 10/07/2017 0915 PST EXAM: XR CHEST AP PORTABLE dated 10/07/2017 | | 3:31 AMHISTORY: hypoxiaComparison: October 06 and October 05, 2017TECHNIQUE: A single | | portable view of the chest.FINDINGS:The lungs are symmetrically aerated. Interval | | progression of interstitial andairspace opacities. Air bronchograms in the left lower | | lung. These aresymmetric in the left lung but diffusely throughout both lungs. No | | largepleural effusion. No pneumothorax. The cardiac and mediastinal contours arenot | | enlarged. No visible acute osseous abnormalities.IMPRESSION -Progressive interstitial | | and airspace opacities. These could be due tocardiogenic or noncardiogenic pulmonary | | edema. These could be due to atypicalpneumonia. The findings could be related to a | | combined pathology.Dictated and Signed by: Terry Swift MD Electronically signed: | | 10/07/2017 9:11 AM | |airspace opacities. Air bronchograms in the left lower lung. These are | |symmetric in the left lung but diffusely throughout both lungs. No large | |pleural effusion. No pneumothorax. The cardiac and mediastinal contours are | |not enlarged. No visible acute osseous abnormalities. | | | |IMPRESSION - | | | |Progressive interstitial and airspace opacities. These could be due to | |cardiogenic or noncardiogenic pulmonary edema. These could be due to atypical | |pneumonia. The findings could be related to a combined pathology. | | | |Dictated and Signed by: Terry Swift MD | | Electronically signed: 10/07/2017 9:11 AM | + + POC Glucose (10/07/2017 0050) + +-------+ + | Component | Value | Ref Range | + +-------+ + | Glucose, POC | 105 | 70 - 109 mg/dL | + +-------+ + + + + | Specimen | Performing Laboratory | + + + | Blood | [facility] [address] | | | [place] [address] | + + + POC Glucose (10/06/20172040) + +-------+ + | Component | Value | Ref Range | + +-------+ + | Glucose, POC | 101 | 70 - 109 mg/dL | + +-------+ + + + + | Specimen | Performing Laboratory | + + + | Blood | [facility] [address] | | | [place] [address] | + + + Troponin I (10/06/2017 1752) + + + + | Component | Value | Ref Range | + + + + | Troponin I | 5.64 ()Comment: Reference | <0.06 ng/mL | | | Ranges:0.00-0.06 = NORMAL>0.06 = | | | | SUSPICIOUS FOR MYOCARDIAL DAMAGE NOTE: | | | | Values greater than 0.50 ng/mL have been | | | | shown to be strongly associated with acute | | | | myocardial infarction. Critical Result | | | | called to and read back by Giulia | | | | ALFONSO Rain on 10/06/2017 at 18:35 by Bhargavi | | | | Yuki Alan. The [employer] | | | | Cardiology (ACC) recommends a decision | | | | limit of 0.06 ng/mL for this | | | | assay. Results greater than 0.06 can | | | | reflect a pre-infarct acute coronary | | | | syndrome, but can also reflect myocardial | | | | necrosis or injury that is not due to | | | | coronary 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. Some of these | | | | causes are sepsis, hypocolemia, atrial | | | | fibrillation, heart failure, pulmonary | | | | embolism, myocarditis, myocardial | | | | contusion, and renal failure. The | | | | diagnosis of myocardial infarction should | | | | be based on a combination of the patient's | | | | clinical presentation and the clinical | | | | laboratory test results (especially serial | | | | troponin levels). | | + + + + + + + | Specimen | Performing Laboratory | + + + | Blood | [facility] [address] | | | [facility] [place] [address] | + + + POC Glucose (10/06/2017 1632) + +---------+ + | Component | Value | Ref Range | + +---------+ + | Glucose, POC | 130 (H) | 70 - 109 mg/dL | + +---------+ + + + + | Specimen | Performing Laboratory | + + + | Blood | [facility] [address] | | | [place] [address] | + + + POC Glucose (10/06/20171127) + +---------+ + | Component | Value | Ref Range | + +---------+ + | Glucose, POC | 120 (H) | 70 - 109 mg/dL | + +---------+ + + + + | Specimen | Performing Laboratory | + + + | Blood | [facility] [address] | | | [place] [address] | + + + POC Glucose (10/06/2017 0832) + +---------+ + | Component | Value | Ref Range | + +---------+ + | Glucose, POC | 110 (H) | 70 - 109 mg/dL | + +---------+ + + + + | Specimen | Performing Laboratory | + + + | Blood | [facility] [address] | | | [place] [address] | + + + XR Chest AP Portable (10/06/2017 0609) + + | Narrative | + + | EXAM: XR CHEST AP PORTABLE dated 10/06/2017 6:09 AM HISTORY: pneumonia | | Comparison: Chest x-rays dating to October 03, 1999 TECHNIQUE: A single portable | | view of the chest. FINDINGS: Interval decrease in interstitial and airspace | | opacities bilaterally. These are not resolved. No pneumothorax. No large | | pleural effusion. Stable mild cardiomegaly. IMPRESSION - Interval decrease | | in interstitial and airspace opacities bilaterally. Dictated and Signed by: Terry Isabel | | MD Jamison Electronically signed: 10/06/2017 8:34 AM | + + + + | Procedure Note | + + | Clayton Cortes Results In - 10/06/2017 0837 PST EXAM: XR CHEST AP PORTABLE dated 10/06/2017 | | 6:09 AMHISTORY: pneumoniaComparison: Chest x-rays dating to October 03, 1999TECHNIQUE: A | | single portable view of the chest.FINDINGS:Interval decrease in interstitial and | | airspace opacities bilaterally. These arenot resolved. No pneumothorax. No large | | pleural effusion. Stable mildcardiomegaly. IMPRESSION -Interval decrease in | | interstitial and airspace opacities bilaterally.Dictated and Signed by: Terry Swift | | Electronically signed: 10/06/2017 8:34 AM | | | |FINDINGS: | | | |Interval decrease in interstitial and airspace opacities bilaterally. These are | |not resolved. No pneumothorax. No large pleural effusion. Stable mild | |cardiomegaly. | | | |IMPRESSION - | | | |Interval decrease in interstitial and airspace opacities bilaterally. | | | |Dictated and Signed by: Terry Swift MD | | Electronically signed: 10/06/2017 8:34 AM | + + Magnesium (10/06/2017 0348) + +-------+ + | Component | Value | Ref Range | + +-------+ + | MG | 1.9 | 1.8 - 2.5 mg/dL | + +-------+ + + + + | Specimen | Performing Laboratory | + + + | Blood | [facility] [address] | | | [place] [address] | + + + Basic Metabolic Panel (10/06/2017 0348) + + + + | Component | Value | Ref Range | + + + + | NA | 144 | 136 - 149 mmol/L | + + + + | K | 3.1 (L) | 3.5 - 5.1 mmol/L | + + + + | CL | 108 | 98 - 109 mmol/L | + + + + | CO2 | 26 | 24 - 31 mmol/L | + + + + | ANION GAP | 10 | 3 - 16 mmol/L | + + + + | GLUCOSE | 136 (H) | 70 - 109 mg/dL | + + + + | BUN | 18 | 7 - 18 mg/dL | + + + + | Creatinine, | 1.30 | 0.60 - 1.30 mg/dL | | Serum/Plasma | | | + + + + | eGFR if not | 56 (L)Comment: GLOMERULAR FILTRATION | >=60 mL/min/1.73m2 | | [place] | RATE,ESTIMATED mL/min/1.70e6Pakl than | | | | 60 Chronic kidney disease,if found over | | | | a 3-month period.Less than 15 Kidney | | | | failureFor Americans,multiply the | | | | calculated GFR by 1.21. | | | | | | | | | | + + + + | CALCIUM | 8.3 | 8.3 - 10.5 mg/dL | + + + + | BUN/CREA | 13.8 | | + + + + + + + | Specimen | Performing Laboratory | + + + | Blood | [facility] [address] | | | [place] [address] | + + + CBC with Differential (10/06/2017 0348) + + + + | Component | Value | Ref Range | + + + + | WBC | 10.4 | 4.0 - 11.0 K/uL | + + + + | RBC | 4.62 | 4.30 - 5.70 M/uL | + + + + | Hgb | 13.7 | 13.5 - 18.0 g/dL | + + + + | Hct | 41.4 | 40.0 - 51.0 % | + + + + | MCV | 89.6 | 83.0 - 101.0 fL | + + + + | MCH | 29.7 | 28.0 - 35.0 pg | + + + + | MCHC | 33.1 | 32.0 - 36.0 g/dL | + + + + | RDW-CV | 15.0 (H) | <15.0 % | + + + + | Platelet Count | 137 (L) | 140 - 440 K/uL | + + + + | MPV | 8.2 | fL | + + + + | % Neutrophils | 78.3 | 45.0 - 82.0 % | + + + + | % Lymphocytes | 11.8 (L) | 20.0 - 45.0 % | + + + + | % Monocytes | 9.2 | 4.0 - 12.0 % | + + + + | % Eosinophils | 0.2 | 0.0 - 5.0 % | + + + + | % Basophils | 0.5 | 0.0 - 1.0 % | + + + + | Absolute Neutrophils | 8.10 | 1.80 - 8.50 K/uL | + + + + | Absolute Lymphocytes | 1.20 | 0.60 - 3.20 K/uL | + + + + | Absolute Monocytes | 1.00 | 0.00 - 1.00 K/uL | + + + + | Absolute Eosinophils | 0.00 | 0.00 - 0.40 K/uL | + + + + | Absolute Basophils | 0.10 | 0.00 - 0.10 K/uL | + + + + + + + | Specimen | Performing Laboratory | + + + | Blood | [facility] [address] | | | [place] [address] | + + + POC Glucose (10/05/20172037) + +---------+ + | Component | Value | Ref Range | + +---------+ + | Glucose, POC | 126 (H) | 70 - 109 mg/dL | + +---------+ + + + + | Specimen | Performing Laboratory | + + + | Blood | [facility] [address] | | | [place] [address] | + + + ECG 12 lead (10/05/2017 1543) + + + + | Component | Value | Ref Range | + + + + | VENTRICULAR RATE EKG | 150 | BPM | + + + + | ATRIAL RATE | 150 | BPM | + + + + | P-R INTERVAL | 112 | ms | + + + + | QRS DURATION | 128 | ms | + + + + | Q-T INTERVAL | 314 | ms | + + + + | Q-T INTERVAL | 496 | ms | | (CORRECTED) | | | + + + + | QRS AXIS | -27 | degrees | + + + + | T AXIS | 95 | degrees | + + + + | INTERPRETATION TEXT | Possible Sinus tachycardia though atrial | | | | flutter with 2:1 should be strongly | | | | considered with rate of 150 bpmNonspecific | | | | intraventricular blockCannot rule out | | | | Anterior infarct (cited on or before | | | | 05-OCT-2017)ST and T wave abnormalities may | | | | be secondary to rate and/or | | | | ischemiaAbnormal ECGWhen compared with ECG | | | | of 05-OCT-2017 15:09, (Unconfirmed)Possible | | | | Atrial flutter is now present Confirmed by | | | | FLORY العلي MD ([id number]) on 10/06/2017 | | | | 7:17:27 AM | | + + + + + + + | Specimen | Performing Laboratory | + + + | | [facility] | + + + XR Chest AP Portable (10/05/2017 1523) + + | Narrative | + + | SINGLE AP CHEST 10/05/2017 3:23 PM CLINICAL HISTORY: increased o2 demand | | COMPARISON: Radiography from earlier in the day and more remote exams FINDINGS: The | | endotracheal and esophagogastric tubes have been removed. Cardiomediastinal silhouette | | is unremarkable. There is new patchy reticular opacity in the left mid-upper lung | | and right mid lung, with increased patchy opacity at the right base. Left basilar | | aeration is somewhat improved although patchy opacity is visible in this region as | | well. No pneumothorax or pleural effusion is evident. Bones and soft tissues are | | unremarkable. IMPRESSION - 1. NEW PATCHY RETICULAR OPACITY INVOLVING | | PORTIONS OF BOTH LUNGS FOLLOWING EXTUBATION. THIS COULD REFLECT PULMONARY EDEMA OR | | MASSIVE ASPIRATION. Dictated and Signed by: Jai De La Rosa MD Electronically | | signed: 10/05/2017 8:46 PM | + + + + | Procedure Note | + + | Sebastian, Rad Results In - 10/05/2017 2049 PST SINGLE AP CHEST 10/05/2017 3:23 PM | | | | CLINICAL HISTORY: increased o2 demand | | | | COMPARISON: Radiography from earlier in the day and more remote exams | | | | FINDINGS: The endotracheal and esophagogastric tubes have been removed. | | Cardiomediastinal silhouette is unremarkable. There is new patchy reticular | | opacity in the left mid-upper lung and right mid lung, with increased patchy | | opacity at the right base. Left basilar aeration is somewhat improved although | | patchy opacity is visible in this region as well. No pneumothorax or pleural | | effusion is evident. Bones and soft tissues are unremarkable. | | | | IMPRESSION - | | | | 1. NEW PATCHY RETICULAR OPACITY INVOLVING PORTIONS OF BOTH LUNGS FOLLOWING | | EXTUBATION. THIS COULD REFLECT PULMONARY EDEMA OR MASSIVE ASPIRATION. | | | | Dictated and Signed by: Jai De La Rosa MD | | Electronically signed: 10/05/2017 8:46 PM | + + ECG 12 lead (10/05/2017 1509) + + + + | Component | Value | Ref Range | + + + + | VENTRICULAR RATE EKG | 143 | BPM | + + + + | ATRIAL RATE | 143 | BPM | + + + + | P-R INTERVAL | 130 | ms | + + + + | QRS DURATION | 128 | ms | + + + + | Q-T INTERVAL | 278 | ms | + + + + | Q-T INTERVAL | 429 | ms | | (CORRECTED) | | | + + + + | P WAVE AXIS | 65 | degrees | + + + + | QRS AXIS | -30 | degrees | + + + + | T AXIS | 105 | degrees | + + + + | INTERPRETATION TEXT | Sinus tachycardia withLeft axis | | | | deviationNonspecific intraventricular | | | | blockCannot rule out Anterior infarct | | | | (cited on or before 05-OCT-2017)ST & T wave | | | | abnormality, consider lateral ischemiaST | | | | depression in inferior leads:consider | | | | ischemiaAbnormal ECGWhen compared with ECG | | | | of 05-OCT-2017 15:09, | | | | (Unconfirmed)Significant changes have | | | | occurredConfirmed by FLORY العلي MD | | | | ([id number]) on 10/07/2017 7:10:25 AM | | + + + + + + + | Specimen | Performing Laboratory | + + + | | [facility] | + + + POC Blood Gases (10/05/2017 1312) + + + + | Component | Value | Ref Range | + + + + | Specimen Source | Artery | | + + + + | pH, POC | 7.498 (H) | 7.3 - 7.45 | + + + + | HCO3, POC | 24.4 | 21.0 - 28.0 mmol/L | + + + + | TCO2, POC | 25.4 | 22.0 - 29.0 mmol/L | + + + + | Base Excess, POC | 1.8 | -2.0 - 3.0 mmol/L | + + + + | Base Excess, | 1.2 | -2.0 - 3.0 mmol/L | | Extracellular fluid, | | | | POC | | | + + + + | O2 Sat, POC | 98 | 90 - 100 % | + + + + | PCO2, POC | 31.5 (L) | 35.0 - 50.0 mmHg | + + + + | PO2, POC | 94.0 (H) | 25.0 - 50.0 mmHg | + + + + + + + | Specimen | Performing Laboratory | + + + | | [facility] [address] | | | [place] [address] | + + + EGD (10/05/2017 1056) + + + | Specimen | Performing Laboratory | + + + | | [facility] | + + + + + | Narrative | + + | Gastroenterology Patient Name: Bob Hood Procedure Date: 10/05/2017 10:56 AM | | Date of : 1955 Admit Type: | | Inpatient Age: 61 Room: [place] [address] Gender: Male Note Status: Finalized Attending MD: | | Terry Weir MD Procedure: Upper GI endoscopy | | Indications: Suspected upper gastrointestinal bleeding | | Providers: Terry Weir MD, Gil Tam RN, Elizabeth Patel | | ALFONSO Rivers, Siddharth Bradley CMA, Venice Campbell | | Babita, Daytime Babysitter, Yong Napier MD (Anesthesia | | Staff) Medicines: Propofol per Anesthesia Complications: No | | immediate complications. Estimated blood loss: None. Procedure: | | Pre-Anesthesia Assessment: - Prior to the procedure, a History and Physical | | was performed, and patient medications, allergies and sensitivities were | | reviewed. The patient's tolerance of previous anesthesia was reviewed. | | - Prior to the procedure, a History and Physical was performed, and | | patient medications and allergies were reviewed. The patient is unable to | | give consent secondary to the patient being legally incompetent to consent. | | The risks and benefits of the procedure and the sedation options and risks | | were discussed with the patient's spouse. All questions were answered and | | informed consent was obtained. Patient identification and proposed procedure | | were verified by the physician, the nurse, the anesthesiologist and the | | alarm technician in the procedure room. Mental Status Examination: sedated. Airway | | Examination: small/crowded oropharyngeal airway and Mallampati Class III | | (part of the uvula and soft palate visualized). Prophylactic Antibiotics: The | | patient does not require prophylactic antibiotics. Anticoagulants: The | | patient has taken antiplatelet medication. It was decided not to withhold | | this medication prior to the procedure. ASA Grade Assessment: III - A patient | | with severe systemic disease. After reviewing the risks and benefits, | | the patient was deemed in satisfactory condition to undergo the | | procedure. The anesthesia plan was to use monitored anesthesia care (MAC). | | Immediately prior to administration of medications, the patient was | | re-assessed for adequacy to receive sedatives. The heart rate, respiratory | | rate, oxygen saturations, blood pressure, adequacy of pulmonary ventilation, | | and response to care were monitored throughout the procedure. The physical | | status of the patient was re-assessed after the procedure. - After | | reviewing the risks and benefits, the patient was deemed in satisfactory | | condition to undergo the procedure. - Using IV propofol under the supervision | | of an anesthesiologist was determined to be medically necessary for this | | procedure based on severe comorbidity (greater than ASA Grade II), inability | | to follow simple commands and uncooperative or combative patient. - | | Immediately prior to administration of medications, the patient was | | re-assessed for adequacy to receive sedatives. - The heart rate, respiratory | | rate, oxygen saturations, blood pressure, adequacy of pulmonary ventilation, | | and response to care were monitored throughout the procedure. - The | | physical status of the patient was re-assessed after the procedure. After | | obtaining informed consent, the endoscope was passed under direct vision. | | Throughout the procedure, the patient's blood pressure, pulse, and oxygen | | saturations were monitored continuously. The endoscope was introduced through | | the mouth, and advanced to the third part of duodenum. The upper GI | | endoscopy was accomplished without difficulty. The patient tolerated the | | procedure. Findings: The upper third of the esophagus, middle third of the | | esophagus and lower third of the esophagus were normal. Localized | | moderate inflammation characterized by erythema and friability was found at | | the gastroesophageal junction and in the prepyloric region of the stomach. | | Two non-bleeding linear gastric ulcers with pigmented material were | | found on the lesser curvature of the stomach. To stop active bleeding, four | | hemostatic clips were successfully placed. There was no bleeding at the end | | of the procedure. Localized mildly friable mucosa without active bleeding was | | found in the duodenal bulb. The first portion of the duodenum, | | second portion of the duodenum, area of the papilla and third portion of the | | duodenum were normal. Impression: - Normal upper third of esophagus, middle | | third of esophagus and lower third of esophagus. - Acute gastritis. | | - Non-bleeding gastric ulcers with pigmented material. Clips were placed. | | - Friable duodenal mucosa. - Normal first portion of the duodenum, | | second portion of the duodenum, area of the papilla and third portion of the | | duodenum. - No specimens collected. Recommendation: - NPO today. | | - Continue present medications. - Observe patient's clinical course. | | - Repeat upper endoscopy PRN for retreatment. Terry Weir MD 10/05/2017 | | 11:29:44 AM This report has been signed electronically. Number of Addenda: 0 Note | | Initiated On: 10/05/2017 10:56 AM Total Procedure Duration: 0 hours 10 minutes 56 | | seconds Scope In: 11:00:34 AM Scope Out: 11:11:30 AM [facility] | | [facility], [address] [place] [id number] | + + XR Chest AP Portable (10/05/2017 0553) + + | Narrative | + + | SINGLE AP CHEST 10/05/2017 5:28 AM CLINICAL HISTORY: resp failure COMPARISON: | | Radiography from the previous day and more remote exams FINDINGS: The endotracheal | | tube remains in position, terminating approximately 4.5 cm above the | | tanya. Esophagogastric tube again passes into the imaged left upper abdomen. The | | cardiomediastinal silhouette and pulmonary vasculature are otherwise | | unremarkable. There is persistent dense opacity at the medial left base. Mild | | hazy reticular opacity elsewhere in the lung bases is similar in extent. The upper | | lung chadwick are clear. No pneumothorax or pleural effusion is visible. Bones and | | soft tissues are unremarkable. IMPRESSION - 1. ENDOTRACHEAL TUBE 4.5 CM | | ABOVE THE TANYA. 2. STABLE BIBASILAR OPACITIES DISCUSSED. Dictated and | | Signed by: Jai De La Rosa MD Electronically signed: 10/05/2017 8:44 PM | + + + + | Procedure Note | + + | Sebastian, Rad Results In - 10/05/2017 2047 PST SINGLE AP CHEST 10/05/2017 5:28 AM | | | | CLINICAL HISTORY: resp failure | | | | COMPARISON: Radiography from the previous day and more remote exams | | | | FINDINGS: The endotracheal tube remains in position, terminating approximately | | 4.5 cm above the tanya. Esophagogastric tube again passes into the imaged left | | upper abdomen. The cardiomediastinal silhouette and pulmonary vasculature are | | otherwise unremarkable. There is persistent dense opacity at the medial left | | base. Mild hazy reticular opacity elsewhere in the lung bases is similar in | | extent. The upper lung chadwick are clear. No pneumothorax or pleural effusion | | is visible. Bones and soft tissues are unremarkable. | | | | IMPRESSION - | | | | 1. ENDOTRACHEAL TUBE 4.5 CM ABOVE THE TANYA. | | | | 2. STABLE BIBASILAR OPACITIES DISCUSSED. | | | | Dictated and Signed by: Jai De La Rosa MD | | Electronically signed: 10/05/2017 8:44 PM | + + Occult Blood, Gastric (10/05/2017 0525) + + + + | Component | Value | Ref Range | + + + + | PH, GASTRIC | 2.0 | | + + + + | OCCULT BLOOD, | Positive (A) | Negative | | GASTRIC | | | + + + + + + + | Specimen | Performing Laboratory | + + + | Body Fluid | [facility] | | | [place] [address] | + + + Procalcitonin (10/05/2017 0427) + + + + | Component | Value | Ref Range | + + + + | Procalcitonin | 0.89 (H) | <=0.50 ng/mL | + + + + | Comment | Comment: < 0.50 ng/mL:Procalcitonin levels | | | | below 0.50 ng/mL on the first day of | | | | admission represents a low risk for | | | | progression to severe sepsis and/or septic | | | | shock, however these do not exclude an | | | | infection, because localized infections | | | | (without systemic signs) may also be | | | | associated with such low levels. > 2.00 | | | | ng/mL:Procalcitonin levels above 2.00 | | | | ng/mL on the first day of admission | | | | represents a high risk for progression to | | | | severe sepsis and/or septic shock. If the | | | | procalcitonin measurement is performed | | | | shortly after the systemic infection | | | | process has started (usually less than 6 | | | | hours), these values may still be low. As | | | | various non-infectious conditions are known | | | | to induce procalcitonin as well, | | | | procalcitonin levels between 0.50 ng/mL and | | | | 2.00 ng/mL should be reviewed carefully to | | | | take into account the specific clinical | | | | background and condition(s) of the | | | | individual patient. | | + + + + + + + | Specimen | Performing Laboratory | + + + | Blood | [facility] | | | [place] [address] | + + + Basic Metabolic Panel (10/05/2017 0427) + + + + | Component | Value | Ref Range | + + + + | NA | 142 | 136 - 149 mmol/L | + + + + | K | 3.7 | 3.5 - 5.1 mmol/L | + + + + | CL | 111 (H) | 98 - 109 mmol/L | + + + + | CO2 | 25 | 24 - 31 mmol/L | + + + + | ANION GAP | 6 | 3 - 16 mmol/L | + + + + | GLUCOSE | 118 (H) | 70 - 109 mg/dL | + + + + | BUN | 17 | 7 - 18 mg/dL | + + + + | Creatinine, | 1.19 | 0.60 - 1.30 mg/dL | | Serum/Plasma | | | + + + + | eGFR if not | >60Comment: GLOMERULAR FILTRATION | >=60 mL/min/1.73m2 | | [place] | RATE,ESTIMATED mL/min/1.56h6Wdls than | | | | 60 Chronic kidney disease,if found over | | | | a 3-month period.Less than 15 Kidney | | | | failureFor Americans,multiply the | | | | calculated GFR by 1.21. | | | | | | | | | | + + + + | CALCIUM | 8.3 | 8.3 - 10.5 mg/dL | + + + + | BUN/CREA | 14.3 | | + + + + + + + | Specimen | Performing Laboratory | + + + | Blood | [facility] | | | [place] [address] | + + + CBC with Differential (10/05/2017 0427) + + + + | Component | Value | Ref Range | + + + + | WBC | 8.3 | 4.0 - 11.0 K/uL | + + + + | RBC | 4.15 (L) | 4.30 - 5.70 M/uL | + + + + | Hgb | 12.4 (L) | 13.5 - 18.0 g/dL | + + + + | Hct | 37.6 (L) | 40.0 - 51.0 % | + + + + | MCV | 90.4 | 83.0 - 101.0 fL | + + + + | MCH | 29.7 | 28.0 - 35.0 pg | + + + + | MCHC | 32.9 | 32.0 - 36.0 g/dL | + + + + | RDW-CV | 16.0 (H) | <15.0 % | + + + + | Platelet Count | 126 (L) | 140 - 440 K/uL | + + + + | MPV | 8.1 | fL | + + + + | % Neutrophils | 78.8 | 45.0 - 82.0 % | + + + + | % Lymphocytes | 11.4 (L) | 20.0 - 45.0 % | + + + + | % Monocytes | 8.7 | 4.0 - 12.0 % | + + + + | % Eosinophils | 0.8 | 0.0 - 5.0 % | + + + + | % Basophils | 0.3 | 0.0 - 1.0 % | + + + + | Absolute Neutrophils | 6.60 | 1.80 - 8.50 K/uL | + + + + | Absolute Lymphocytes | 1.00 | 0.60 - 3.20 K/uL | + + + + | Absolute Monocytes | 0.70 | 0.00 - 1.00 K/uL | + + + + | Absolute Eosinophils | 0.10 | 0.00 - 0.40 K/uL | + + + + | Absolute Basophils | 0.00 | 0.00 - 0.10 K/uL | + + + + + + + | Specimen | Performing Laboratory | + + + | Blood | [facility] | | | [place] [address] | + + + POC Glucose (10/04/20172111) + +-------+ + | Component | Value | Ref Range | + +-------+ + | Glucose, POC | 108 | 70 - 109 mg/dL | + +-------+ + + + + | Specimen | Performing Laboratory | + + + | Blood | [facility] | | | [place] [address] | + + + XR Chest AP Portable (10/04/20171914) + + | Narrative | + + | EXAM: XR CHEST AP PORTABLE dated 10/04/2017 7:03 PM HISTORY: acute respiratory | | failure Comparison: October 03, 2017 TECHNIQUE: A single portable view of the | | chest. FINDINGS: Persistent the lower lobe parenchymal | | opacities. Endotracheal tube is in place. The tip is approximately 5 cm above the | | tanya. There is an enteric tube coursing below diaphragm with the tip not | | seen. The cardiac and mediastinal contours are stable. Blunting of the left | | costophrenic angle could be effusion. No pneumothorax. IMPRESSION - | | Persistent basilar opacities and possible left pleural effusion. No significant | | change in support lines or tubes. Dictated and Signed by: Terry Swift MD | | Electronically signed: 10/05/2017 9:50 AM | + + + + | Procedure Note | + + | Sebastian, Rad Results In - 10/05/2017 0954 PST EXAM: XR CHEST AP PORTABLE dated 10/04/2017 | | 7:03 PMHISTORY: acute respiratory failureComparison: October 03, 2017TECHNIQUE: A single | | portable view of the chest.FINDINGS:Persistent the lower lobe parenchymal opacities. | | Endotracheal tube is in place. The tip is approximately 5 cm above the tanya. There is | | an enteric tubecoursing below diaphragm with the tip not seen. The cardiac and | | mediastinalcontours are stable. Blunting of the left costophrenic angle could be | | effusion. No pneumothorax. IMPRESSION -Persistent basilar opacities and possible left | | pleural effusion.No significant change in support lines or tubes.Dictated and Signed by: | | Terry Swift MD Electronically signed: 10/05/2017 9:50 AM | | | |Persistent the lower lobe parenchymal opacities. Endotracheal tube is in place. | | The tip is approximately 5 cm above the tanya. There is an enteric tube | |coursing below diaphragm with the tip not seen. The cardiac and mediastinal | |contours are stable. Blunting of the left costophrenic angle could be effusion. | | No pneumothorax. | | | |IMPRESSION - | | | |Persistent basilar opacities and possible left pleural effusion. | | | |No significant change in support lines or tubes. | | | |Dictated and Signed by: Terry Swift MD | | Electronically signed: 10/05/2017 9:50 AM | + + POC Glucose (10/04/2017 1716) + +-------+ + | Component | Value | Ref Range | + +-------+ + | Glucose, POC | 91 | 70 - 109 mg/dL | + +-------+ + + + + | Specimen | Performing Laboratory | + + + | Blood | [facility] | | | [place] [address] | + + + ECG 12 lead (10/04/2017 1708) + + + + | Component | Value | Ref Range | + + + + | VENTRICULAR RATE EKG | 99 | BPM | + + + + | ATRIAL RATE | 99 | BPM | + + + + | P-R INTERVAL | 156 | ms | + + + + | QRS DURATION | 128 | ms | + + + + | Q-T INTERVAL | 400 | ms | + + + + | Q-T INTERVAL | 513 | ms | | (CORRECTED) | | | + + + + | P WAVE AXIS | 67 | degrees | + + + + | QRS AXIS | -25 | degrees | + + + + | T AXIS | 87 | degrees | + + + + | INTERPRETATION TEXT | Normal sinus rhythmLeft bundle branch | | | | blockAbnormal ECGWhen compared with ECG of | | | | 03-OCT-2017 12:55,T wave inversion is no | | | | longer present in Lateral leadsConfirmed by | | | | FLORY العلي MD ([id number]) on 10/05/2017 | | | | 7:23:04 AM | | | | | | + + + + + + + | Specimen | Performing Laboratory | + + + | | [facility] MUSE | + + + Extra Green Top Tube (10/04/2017 1556) + +-------+ + | Component | Value | Ref Range | + +-------+ + | Extra Green Top Tube | Done | | + +-------+ + + + + | Specimen | Performing Laboratory | + + + | Blood | [facility] [address] | | | [place] [address] | + + + Extra Lavender Top Tube (10/04/2017 1443) + +-------+ + | Component | Value | Ref Range | + +-------+ + | Extra Lavender Top | Done | | | Tube | | | + +-------+ + + + + | Specimen | Performing Laboratory | + + + | Blood | [facility] [address] | | | [place] [address] | + + + Troponin I (10/04/2017 1443) + + + + | Component | Value | Ref Range | + + + + | Troponin I | 9.32 (HH)Comment: Reference | <0.06 ng/mL | | | Ranges:0.00-0.06 = NORMAL>0.06 = | | | | SUSPICIOUS FOR MYOCARDIAL DAMAGE NOTE: | | | | Values greater than 0.50 ng/mL have been | | | | shown to be strongly associated with acute | | | | myocardial infarction. Consistent with | | | | previous results. The [place] [employer] | | | | Cardiology (ACC) recommends a decision | | | | limit of 0.06 ng/mL for this | | | | assay. Results greater than 0.06 can | | | | reflect a pre-infarct acute coronary | | | | syndrome, but can also reflect myocardial | | | | necrosis or injury that is not due to | | | | coronary 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. Some of these | | | | causes are sepsis, hypocolemia, atrial | | | | fibrillation, heart failure, pulmonary | | | | embolism, myocarditis, myocardial | | | | contusion, and renal failure. The | | | | diagnosis of myocardial infarction should | | | | be based on a combination of the patient's | | | | clinical presentation and the clinical | | | | laboratory test results (especially serial | | | | troponin levels). | | + + + + + + + | Specimen | Performing Laboratory | + + + | Blood | [facility] | | | [place] [address] | + + + Blood Gas, Arterial (10/04/2017 1333) + + + + | Component | Value | Ref Range | + + + + | PH TEMP CORRECTED | 7.46 | | + + + + | PCO2 TEMP CORRECTED | 35 | mmHg | + + + + | PO2 TEMP CORRECTED | 74 | mmHg | + + + + | pH, Arterial | 7.46 (H) | 7.35 - 7.45 | + + + + | pCO2, Arterial | 35 | 35 - 45 mm Hg | + + + + | pO2, Arterial | 74 | >=60 mm Hg | + + + + | HCO3, Arterial | 24.7 (H) | 18.0 - 23.0 mmol/L | + + + + | Base Excess, | 1.7 | -2.0 - 2.0 mmol/L | | Arterial | | | + + + + | O2 Saturation, | 95 | 95 - 98 % | | Arterial | | | + + + + | Hemoglobin, Arterial | 13.2 | g/dL | + + + + | Oxygenhemoglobin, | 92.9 | 90.0 - 100.0 % | | Arterial | | | + + + + | Methemoglobin, | 1.2 | 0.0 - 1.5 % | | Arterial | | | + + + + | Carboxyhemoglobin, | 1.4 | 0.0 - 1.5 % | | Arterial | | | + + + + | FiO2 | 40.0 | % | + + + + + + + | Specimen | Performing Laboratory | + + + | Blood | [facility] | | | [place] [address] | + + + + + | Narrative | + + | SIMV 16 TV 550, PS+ 10, PEEP +5, 40%, ETCO2 35 ZTQ252% | + + POC Glucose (10/04/2017 1223) + +-------+ + | Component | Value | Ref Range | + +-------+ + | Glucose, POC | 106 | 70 - 109 mg/dL | + +-------+ + + + + | Specimen | Performing Laboratory | + + + | Blood | [facility] | | | [place] [address] | + + + CBC with Differential (10/04/2017 0345) + + + + | Component | Value | Ref Range | + + + + | WBC | 10.5 | 4.0 - 11.0 K/uL | + + + + | RBC | 4.49 | 4.30 - 5.70 M/uL | + + + + | Hgb | 13.2 (L) | 13.5 - 18.0 g/dL | + + + + | Hct | 40.5 | 40.0 - 51.0 % | + + + + | MCV | 90.3 | 83.0 - 101.0 fL | + + + + | MCH | 29.5 | 28.0 - 35.0 pg | + + + + | MCHC | 32.6 | 32.0 - 36.0 g/dL | + + + + | RDW-CV | 16.0 (H) | <15.0 % | + + + + | Platelet Count | 151 | 140 - 440 K/uL | + + + + | MPV | 8.1 | fL | + + + + | % Neutrophils | 79.9 | 45.0 - 82.0 % | + + + + | % Lymphocytes | 10.2 (L) | 20.0 - 45.0 % | + + + + | % Monocytes | 9.8 | 4.0 - 12.0 % | + + + + | % Eosinophils | 0.0 | 0.0 - 5.0 % | + + + + | % Basophils | 0.1 | 0.0 - 1.0 % | + + + + | Absolute Neutrophils | 8.40 | 1.80 - 8.50 K/uL | + + + + | Absolute Lymphocytes | 1.10 | 0.60 - 3.20 K/uL | + + + + | Absolute Monocytes | 1.00 | 0.00 - 1.00 K/uL | + + + + | Absolute Eosinophils | 0.00 | 0.00 - 0.40 K/uL | + + + + | Absolute Basophils | 0.00 | 0.00 - 0.10 K/uL | + + + + + + + | Specimen | Performing Laboratory | + + + | Blood | [facility] | | | [place] [address] | + + + Magnesium (10/04/2017 0343) + +-------+ + | Component | Value | Ref Range | + +-------+ + | MG | 1.9 | 1.8 - 2.5 mg/dL | + +-------+ + + + + | Specimen | Performing Laboratory | + + + | Blood | [facility] | | | [place] [address] | + + + Basic Metabolic Panel (10/04/2017 0343) + + + + | Component | Value | Ref Range | + + + + | NA | 140 | 136 - 149 mmol/L | + + + + | K | 3.5 | 3.5 - 5.1 mmol/L | + + + + | CL | 111 (H) | 98 - 109 mmol/L | + + + + | CO2 | 23 (L) | 24 - 31 mmol/L | + + + + | ANION GAP | 6 | 3 - 16 mmol/L | + + + + | GLUCOSE | 141 (H) | 70 - 109 mg/dL | + + + + | BUN | 20 (H) | 7 - 18 mg/dL | + + + + | Creatinine, | 1.26 | 0.60 - 1.30 mg/dL | | Serum/Plasma | | | + + + + | eGFR if not | 58 (L)Comment: GLOMERULAR FILTRATION | >=60 mL/min/1.73m2 | | [place] | RATE,ESTIMATED mL/min/1.95h8Qnif than | | | | 60 Chronic kidney disease,if found over | | | | a 3-month period.Less than 15 Kidney | | | | failureFor Americans,multiply the | | | | calculated GFR by 1.21. | | | | | | | | | | + + + + | CALCIUM | 8.1 (L) | 8.3 - 10.5 mg/dL | + + + + | BUN/CREA | 15.9 | | + + + + + + + | Specimen | Performing Laboratory | + + + | Blood | [facility] | | | [place] [address] | + + + Troponin I (10/03/2017 2328) + + + + | Component | Value | Ref Range | + + + + | Troponin I | 26.62 ()Comment: Reference | <0.06 ng/mL | | | Ranges:0.00-0.06 = NORMAL>0.06 = | | | | SUSPICIOUS FOR MYOCARDIAL DAMAGE NOTE: | | | | Values greater than 0.50 ng/mL have been | | | | shown to be strongly associated with acute | | | | myocardial infarction. Consistent with | | | | previous results. The [place] [employer] | | | | Cardiology (ACC) recommends a decision | | | | limit of 0.06 ng/mL for this | | | | assay. Results greater than 0.06 can | | | | reflect a pre-infarct acute coronary | | | | syndrome, but can also reflect myocardial | | | | necrosis or injury that is not due to | | | | coronary 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. Some of these | | | | causes are sepsis, hypocolemia, atrial | | | | fibrillation, heart failure, pulmonary | | | | embolism, myocarditis, myocardial | | | | contusion, and renal failure. The | | | | diagnosis of myocardial infarction should | | | | be based on a combination of the patient's | | | | clinical presentation and the clinical | | | | laboratory test results (especially serial | | | | troponin levels). | | + + + + + + + | Specimen | Performing Laboratory | + + + | Blood | [facility] | | | [place] [address] | + + + POC Glucose (10/03/20172145) + +---------+ + | Component | Value | Ref Range | + +---------+ + | Glucose, POC | 115 (H) | 70 - 109 mg/dL | + +---------+ + + + + | Specimen | Performing Laboratory | + + + | Blood | [facility] | | | [place] [address] | + + + Basic Metabolic Panel (10/03/20171) + + + + | Component | Value | Ref Range | + + + + | NA | 138 | 136 - 149 mmol/L | + + + + | K | 4.3 | 3.5 - 5.1 mmol/L | + + + + | CL | 111 (H) | 98 - 109 mmol/L | + + + + | CO2 | 21 (L) | 24 - 31 mmol/L | + + + + | ANION GAP | 6 | 3 - 16 mmol/L | + + + + | GLUCOSE | 143 (H) | 70 - 109 mg/dL | + + + + | BUN | 23 (H) | 7 - 18 mg/dL | + + + + | Creatinine, | 1.42 (H) | 0.60 - 1.30 mg/dL | | Serum/Plasma | | | + + + + | eGFR if not | 51 (L)Comment: GLOMERULAR FILTRATION | >=60 mL/min/1.73m2 | | [place] | RATE,ESTIMATED mL/min/1.32w6Lbnn than | | | | 60 Chronic kidney disease,if found over | | | | a 3-month period.Less than 15 Kidney | | | | failureFor Americans,multiply the | | | | calculated GFR by 1.21. | | | | | | | | | | + + + + | CALCIUM | 7.6 (L) | 8.3 - 10.5 mg/dL | + + + + | BUN/CREA | 16.2 | | + + + + + + + | Specimen | Performing Laboratory | + + + | Blood | [facility] | | | [place] [address] | + + + Procalcitonin (10/03/2017 1545) + + + + | Component | Value | Ref Range | + + + + | Procalcitonin | 3.53 (HH)Comment: Critical Result called to | <=0.50 ng/mL | | | and read back by Demetra Arreola on | | | | 10/03/2017 at 17:15 by Juan Srinivasan. | | | | | | | | | | + + + + + + + | Specimen | Performing Laboratory | + + + | Blood | [facility] | | | [place] [address] | + + + Troponin I (10/03/2017 1545) + + + + | Component | Value | Ref Range | + + + + | Troponin I | 25.23 (HH)Comment: Reference | <0.06 ng/mL | | | Ranges:0.00-0.06 = NORMAL>0.06 = | | | | SUSPICIOUS FOR MYOCARDIAL DAMAGE NOTE: | | | | Values greater than 0.50 ng/mL have been | | | | shown to be strongly associated with acute | | | | myocardial infarction. Critical Result | | | | called to and read back by Demetra Kirk | | | | on 10/03/2017 at 17:09 by Juan Srinivasan. | | | | The [place] [employer] (ACC) | | | | recommends a decision limit of 0.06 ng/mL | | | | for this assay. Results greater than | | | | 0.06 can reflect a pre-infarct acute | | | | coronary syndrome, but can also reflect | | | | myocardial necrosis or injury that is not | | | | due to coronary 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. Some of | | | | these causes are sepsis, hypocolemia, | | | | atrial fibrillation, heart failure, | | | | pulmonary embolism, myocarditis, myocardial | | | | contusion, and renal failure. The | | | | diagnosis of myocardial infarction should | | | | be based on a combination of the patient's | | | | clinical presentation and the clinical | | | | laboratory test results (especially serial | | | | troponin levels). | | + + + + + + + | Specimen | Performing Laboratory | + + + | Blood | [facility] | | | [place] [address] | + + + CV CARDIAC PROCEDURE (10/03/2017 1518) + + | Narrative | + + | Delmer Dai MD 10/03/2017 16:25 CARDIAC CATHETERIZATION REPORT DATE | | OF PROCEDURE: 10/03/17 PRECATHETERIZATION INFORMED CONSENT : Yes | | TIMEOUT Before start of procedure done: Yes ALUMNI RELATIONS COORDINATOR: Delmer Mobley M.D., | | [place] PRIMARY PHYSICIAN: Chato Matson MD PROCEDURES PERFORMED: Left | | heart catheterization, selective coronary arteriography INDICATIONS | | : 61-year-old gentleman presenting with acute hypoxic respiratory failure, new left | | bundle branch block, increasing troponin levels, history of coronary artery PCI and | | prior anterior myocardial infarction ARTERIAL ACCESS: Right femoral artery 6 Swedish | | CLOSURE DEVICE:. Sheath left in place as arterial line DESCRIPTION OF | | PROCEDURE: After obtaining informed consent from the patient's , the patient was | | brought to the cardiac catheterization laboratory intubated and mechanically | | ventilated and sedated. He was prepped and draped in usual fashion. Local | | anesthesia was administered to the right inguinal area with 1% lidocaine. Access to | | the right femoral artery was achieved using a modified Seldinger technique and a 6 | | Swedish sheath was inserted. Selective coronary arteriography was performed using 6 | | Swedish Kymberly right 4 and left 4 catheters. A Kymberly right 4 catheter was | | passed across the aortic valve over a guidewire without difficulty. Left | | ventricular pressures and aortic valve pullback pressures were recorded. There were | | no complications. The right femoral artery sheath was sutured in place to function | | his arterial line. SEDATION MEDICATIONS: The patient was on intravenous propofol | | throughout the procedure CONTRAST VOLUME: 50 FLUORO TIME: 2 | | minutes; FLUORO DOSE: 468.87 mGy/cm2 HEMODYNAMICS: LEFT HEART: Left | | ventricular end diastolic pressure: 14 mmHg Aortic pressure: 75/40 mmHg Aortic | | Valve Gradient on pullback: 0 mmHg CORONARY ANGIOGRAPHY DOMINANCE: Right LEFT | | MAIN ARTERY: Medium caliber vessel, vessel caliber tapers distally, eccentric 50% | | distal bifurcation lesion within previous stent LEFT ANTERIOR DESCENDING ARTERY: | | 70% ostial in-stent stenosis, medium caliber first diagonal branch with mild luminal | | irregularity, moderate diffuse mid to distal LAD disease with ANNA grade 1 flow to | | distal LAD CIRCUMFLEX ARTERY: Medium caliber vessel, 95-99% ostial and proximal | | in-stent stenosis, small caliber first obtuse marginal branch, for additional more | | distal obtuse marginal branches of medium caliber with mild to moderate diffuse | | disease RIGHT CORONARY ARTERY: Medium caliber vessel arising from right coronary | | cusp, and dominant, 30% proximal stenosis, diffuse 40-50% mid vessel disease, mild | | luminal irregularity in distal branches including PDA and posterior lateral branches | | CONTRAST LEFT VENTRICULOGRAPHY: Not performed CONCLUSIONS: 1. Systemic | | hypotension, upper normal left ventricular end-diastolic pressure 2. Severe | | in-stent stenosis of left main to ostial LAD stent 3. Severe in-stent stenosis | | ostial proximal left circumflex stent 4. Mild to moderate RCA disease 5. ANNA | | grade 1 flow to distal LAD PLAN: the patient is presenting with fever, | | leukocytosis, possible pneumonitis on chest x-ray, and high grade ostial LAD and | | circumflex in-stent stenoses with new left bundle branch block and elevated | | troponin. The patient's primary illness may be pneumonitis with septic shock with | | resulting hypotension causing myocardial ischemia. The patient will require | | coronary revascularization at some point. I recommend that we continue treating | | the patient with broad-spectrum antibiotics, fluid support, ventilatory support and | | pressors as needed. The patient's left ventricular filling pressures and unchanged | | left ventricular function and echocardiogram do not suggest acute cardiac | | decompensation as his primary reason for hypotension. If the patient shows signs of | | cardiac instability we will transfer the patient to [place] for consideration of | | urgent coronary revascularization. Delmer Mobley M.D., F.A.C.C. | | Closing Supervisor [place], [place] | | | + + Culture, Blood (10/03/20171314) + + + + | Component | Value | Ref Range | + + + + | Culture | No growth after 5 days incubation. | | + + + + + + + | Specimen | Performing Laboratory | + + + | Blood - Peripheral | [facility] [address] | | Blood | [place] [address] | + + + ECG 12 lead (10/03/2017 1255) + + + + | Component | Value | Ref Range | + + + + | VENTRICULAR RATE EKG | 124 | BPM | + + + + | ATRIAL RATE | 124 | BPM | + + + + | P-R INTERVAL | 156 | ms | + + + + | QRS DURATION | 146 | ms | + + + + | Q-T INTERVAL | 318 | ms | + + + + | Q-T INTERVAL | 456 | ms | | (CORRECTED) | | | + + + + | P WAVE AXIS | 64 | degrees | + + + + | QRS AXIS | 4 | degrees | + + + + | T AXIS | 117 | degrees | + + + + | INTERPRETATION TEXT | Sinus tachycardiaLeft bundle branch | | | | blockAbnormal ECGWhen compared with ECG of | | | | 04-MAY-2017 15:20,premature ventricular | | | | complexes are no longer presentVent. rate | | | | has increased BY 43 BPMLeft bundle | | | | branch block is now present :consider | | | | ischemia/infarctionConfirmed by ZOHRA BREWER, | | | | FLORY ([id number]) on 10/04/2017 10:35:54 AM | | | | | | + + + + + + + | Specimen | Performing Laboratory | + + + | | WAMT MUSE | + + + POC Glucose (10/03/2017 1223) + +---------+ + | Component | Value | Ref Range | + +---------+ + | Glucose, POC | 136 (H) | 70 - 109 mg/dL | + +---------+ + + + + | Specimen | Performing Laboratory | + + + | Blood | [facility] aJvid Crespo | | | [place] [address] | + + + XR Chest AP Portable (10/03/2017 1203) + + | Narrative | + + | CLINICAL INFORMATION: Eval for acute hypoxic respiratory failure. COMPARISON: | | 03/15/2017. FINDINGS: Portable frontal chest radiograph. Endotracheal tube | | approximately 4.8 cm from the tanya. Enteric tube projecting below the left | | hemidiaphragm, tip not seen. Side port is noted at the level of the gastric fundus. | | Lungs: Mixed interstitial and alveolar opacities are noted predominantly at the mid | | to lower lungs. Mild interstitial thickening noted throughout the perihilar | | regions. No pleural effusion or pneumothorax. Heart/mediastinum: Cardiac | | silhouette is of normal size. No mediastinal widening. Bones: No acute osseous | | abnormality appreciated. IMPRESSION - Tubes as above. Mixed interstitial and | | alveolar opacities predominantly at the mid to lower lungs, may reflect pulmonary edema | | versus atypical infectious process. Dictated and Signed by: Alin Ramírez MD | | Electronically signed: 10/03/2017 12:41 PM | + + + + | Procedure Note | + + | Sebastian, Rad Results In - 10/03/2017 1244 PST | | CLINICAL INFORMATION: Eval for acute hypoxic respiratory failure. | | | | COMPARISON: 03/15/2017. | | | | FINDINGS: | | Portable frontal chest radiograph. | | | | Endotracheal tube approximately 4.8 cm from the tanya. | | Enteric tube projecting below the left hemidiaphragm, tip not seen. Side port | | is noted at the level of the gastric fundus. | | | | Lungs: Mixed interstitial and alveolar opacities are noted predominantly at the | | mid to lower lungs. Mild interstitial thickening noted throughout the perihilar | | regions. No pleural effusion or pneumothorax. | | | | Heart/mediastinum: Cardiac silhouette is of normal size. No mediastinal | | widening. | | | | Bones: No acute osseous abnormality appreciated. | | | | IMPRESSION - | | Tubes as above. | | | | Mixed interstitial and alveolar opacities predominantly at the mid to lower | | lungs, may reflect pulmonary edema versus atypical infectious process. | | | | Dictated and Signed by: Alin Ramírez MD | | Electronically signed: 10/03/2017 12:41 PM | + + Culture, Blood (10/03/2017 1149) + + + + | Component | Value | Ref Range | + + + + | Culture | No growth after 5 days incubation. | | + + + + + + + | Specimen | Performing Laboratory | + + + | Blood - Line | [facility]av[facility] | | | [place] [address] | + + + Slide Review, Peripheral Smear (10/03/20179) + +--------+ + | Component | Value | Ref Range | + +--------+ + | RBC MORPHOLOGY | Normal | | + +--------+ + | WBC MORPHOLOGY | Normal | | + +--------+ + | PLT MORPHOLOGY | Normal | | + +--------+ + + + + | Specimen | Performing Laboratory | + + + | Blood | [facility] | | | [place] [address] | + + + + + | Narrative | + + | No platelet clumps seen | + + Lactic Acid (10/03/20171128) + +-------+ + | Component | Value | Ref Range | + +-------+ + | LACTATE | 1.2 | 0.5 - 2.2 mmol/L | + +-------+ + + + + | Specimen | Performing Laboratory | + + + | Blood | [facility] | | | [place] [address] | + + + Troponin I (10/03/20171128) + + + + | Component | Value | Ref Range | + + + + | Troponin I | 12.50 ()Comment: Reference | <0.06 ng/mL | | | Ranges:0.00-0.06 = NORMAL>0.06 = | | | | SUSPICIOUS FOR MYOCARDIAL DAMAGE NOTE: | | | | Values greater than 0.50 ng/mL have been | | | | shown to be strongly associated with acute | | | | myocardial infarction. The [employer] | | | | of Cardiology (ACC) recommends a decision | | | | limit of 0.06 ng/mL for this | | | | assay. Results greater than 0.06 can | | | | reflect a pre-infarct acute coronary | | | | syndrome, but can also reflect myocardial | | | | necrosis or injury that is not due to | | | | coronary 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. Some of these | | | | causes are sepsis, hypocolemia, atrial | | | | fibrillation, heart failure, pulmonary | | | | embolism, myocarditis, myocardial | | | | contusion, and renal failure. The | | | | diagnosis of myocardial infarction should | | | | be based on a combination of the patient's | | | | clinical presentation and the clinical | | | | laboratory test results (especially serial | | | | troponin levels). Critical Result called to | | | | and read back by Kalli Kirk on | | | | 10/03/2017 at 12:37 by Miguel Cage. | | + + + + + + + | Specimen | Performing Laboratory | + + + | Blood | [facility] Javid OlearyFletcher Rodriguezar | | | [place] [address] | + + + B Type Natriuretic Peptide (10/03/20171128) + +---------+ + | Component | Value | Ref Range | + +---------+ + | BNP | 495 (H) | <100 pg/mL | + +---------+ + + + + | Specimen | Performing Laboratory | + + + | Blood | [facility] [address] | | | [place] [address] | + + + Hepatic Function Panel (10/03/20171128) + +--------+ + | Component | Value | Ref Range | + +--------+ + | BILIRUBIN TOTAL | 0.6 | 0.1 - 1.5 mg/dL | + +--------+ + | Total protein | 6.5 | 6.0 - 7.8 g/dL | + +--------+ + | ALBUMIN | 3.4 | 3.2 - 5.0 g/dL | + +--------+ + | AST | 77 (H) | 10 - 42 U/L | + +--------+ + | ALT | 29 | 6 - 45 U/L | + +--------+ + | ALK PHOS | 89 | 40 - 110 U/L | + +--------+ + | GLOBULIN | 3.1 | 2.1 - 3.8 g/dL | + +--------+ + | Albumin/Globulin | 1.1 | 0.8 - 2.0 | | ratio | | | + +--------+ + | Bilirubin, Direct | 0.20 | 0.00 - 0.20 mg/dl | + +--------+ + + + + | Specimen | Performing Laboratory | + + + | Blood | [facility] Javid OlearyFletcher Rodriguezar | | | [place] [address] | + + + Protime INR (10/03/2017 1129) + + + + | Component | Value | Ref Range | + + + + | Protime | 14.1 (H) | 11.3 - 13.9 seconds | + + + + | INR | 1.10Comment: Usual Oral Anticoagulation | 0.90 - 1.10 | | | Range: 2.0 - 3.0High Level Oral | | | | Anticoagulation Range: 2.5 - 3.5 | | | |High Level Oral Anticoagulation Range: 2.5 - 3.5 | | + + + + + + + | Specimen | Performing Laboratory | + + + | Blood | [facility] | | | [place] [address] | + + + Basic Metabolic Panel (10/03/2017 1129) + + + + | Component | Value | Ref Range | + + + + | NA | 139 | 136 - 149 mmol/L | + + + + | K | 5.9 (H) | 3.5 - 5.1 mmol/L | + + + + | CL | 109 | 98 - 109 mmol/L | + + + + | CO2 | 18 (L) | 24 - 31 mmol/L | + + + + | ANION GAP | 12 | 3 - 16 mmol/L | + + + + | GLUCOSE | 165 (H) | 70 - 109 mg/dL | + + + + | BUN | 25 (H) | 7 - 18 mg/dL | + + + + | Creatinine, | 1.55 (H) | 0.60 - 1.30 mg/dL | | Serum/Plasma | | | + + + + | eGFR if not | 46 (L)Comment: GLOMERULAR FILTRATION | >=60 mL/min/1.73m2 | | [place] | RATE,ESTIMATED mL/min/1.59d6Efxg than | | | | 60 Chronic kidney disease,if found over | | | | a 3-month period.Less than 15 Kidney | | | | failureFor Americans,multiply the | | | | calculated GFR by 1.21. | | | | | | | | | | + + + + | CALCIUM | 8.3 | 8.3 - 10.5 mg/dL | + + + + | BUN/CREA | 16.1 | | + + + + + + + | Specimen | Performing Laboratory | + + + | Blood | [facility] [address] | | | [place] [address] | + + + CBC with Differential (10/03/20171128) + + + + | Component | Value | Ref Range | + + + + | WBC | 24.2 (H) | 4.0 - 11.0 K/uL | + + + + | RBC | 5.56 | 4.30 - 5.70 M/uL | + + + + | Hgb | 16.8 | 13.5 - 18.0 g/dL | + + + + | Hct | 50.3 | 40.0 - 51.0 % | + + + + | MCV | 90.5 | 83.0 - 101.0 fL | + + + + | MCH | 30.1 | 28.0 - 35.0 pg | + + + + | MCHC | 33.3 | 32.0 - 36.0 g/dL | + + + + | RDW-CV | 16.2 (H) | <15.0 % | + + + + | Platelet Count | 193 | 140 - 440 K/uL | + + + + | MPV | 8.4 | fL | + + + + | % Neutrophils | 91.0 (H) | 45.0 - 82.0 % | + + + + | % Lymphocytes | 2.6 (L) | 20.0 - 45.0 % | + + + + | % Monocytes | 6.0 | 4.0 - 12.0 % | + + + + | % Eosinophils | 0.0 | 0.0 - 5.0 % | + + + + | % Basophils | 0.4 | 0.0 - 1.0 % | + + + + | Absolute Neutrophils | 22.00 (H) | 1.80 - 8.50 K/uL | + + + + | Absolute Lymphocytes | 0.60 | 0.60 - 3.20 K/uL | + + + + | Absolute Monocytes | 1.40 (H) | 0.00 - 1.00 K/uL | + + + + | Absolute Eosinophils | 0.00 | 0.00 - 0.40 K/uL | + + + + | Absolute Basophils | 0.10 | 0.00 - 0.10 K/uL | + + + + + + + | Specimen | Performing Laboratory | + + + | Blood | [facility] Javid [address]resp[address] | | | [place] [address] | + + + ECHO Complete (10/03/2017 1118) + +-------+ + | Component | Value | Ref Range | + +-------+ + | LVEF-TTE | 39 | | | TRANSTHORACIC ECHO | | | + +-------+ + + + | Narrative | + + | Transthoracic Echocardiography Report (TTE) Demographics Patient | | Name MIKE VELASQUEZ Room Number 458 | | J Patient [id number] Date of | | Study 10/03/2017 Number Visit Number [id number] | | Referring Physician BENEDICT RAYGOZA Number | | Date of 1955 [employer] In[employer] WILBERT | | RAJIV HURLEY Age 61 year(s) | | 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 Procedure date Date: | | 10/03/2017Start: 10:38 AM Technical Quality: Limited visualizationStudy Location: | | ICU Patient Status: Routine Height: 70 inchesWeight: 213.85 poundsBSA: 2.15 m^2BMI: | | 30.68 kg/m^2 Conclusions Summary The number of aortic valve leaflets cannot be | | identified. The left atrium is mildly dilated. Normal left ventricular cavity size. | | Mild concentric left ventricular hypertrophy. Ejection fraction is visually estimated | | at 40%. Thinning and severe hypokinesis distal anterior, anterior septal, and apical | | segments Aortic root dimension within normal limits. Mild mitral regurgitation | | present. No evidence of any pericardial effusion. The pulmonic valve was not well | | visualized. Normal right atrial size. Normal right ventricular size and function. | | Structurally normal tricuspid valve without significant stenosis or regurgitation. | | Insufficient amount of tricuspid regurgitation for estimation of pulmonary artery | | pressures. When compared with images of previous echo 06/04/17, no significant changes. | | Signature | | | | Electronically signed by DELMER MOBLEY MD, [facility](Interpreting physician) on | | 10/03/2017 12:59 PM | | | | Findings Mitral Valve Mild mitral regurgitation present. Aortic Valve The number of | | aortic valve leaflets cannot be identified. Tricuspid Valve Structurally normal | | tricuspid valve without significant stenosis or regurgitation. Insufficient amount of | | tricuspid regurgitation for estimation of pulmonary artery pressures. Pulmonic Valve | | The pulmonic valve was not well visualized. Left Atrium The left atrium is mildly | | dilated. Left Ventricle Normal left ventricular cavity size. Mild concentric left | | ventricular hypertrophy. Ejection fraction is visually estimated at 40%. Thinning and | | severe hypokinesis distal anterior, anterior septal, and apical segments Right Atrium | | Normal right atrial size. Right Ventricle Normal right ventricular size and function. | | Pericardial Effusion No evidence of any pericardial effusion. Miscellaneous | | Aortic root dimension within normal limits. Valves Mitral Valve Tissue | | Doppler Septal e' Velocity: 0.07 m/s Aortic Valve Structures Left | | Atrium LA A/P Dimension: 4.04 cm LA | | Area: 15.65 cm^2 LA Vol/BSA Index: 20 mL/m^2 LA | | Volume: 42.65 ml | | | | EF [id number]% Left Ventricle Diastolic Dimension: 5.92 cm Septum | | Diastolic: 1.14 cm PW Diastolic: 1.1 cm EF Calculated: 39% Miscellaneous | | Aorta Aortic Root: 3.38 cm Ascending Aorta: 3.33 cm | + + + + | Procedure Note | + + | Sebastian, Rad Results In - 10/03/2017 1300 PST Transthoracic Echocardiography Report (TTE) | | | | Demographics | | | | Patient Name MIKE VELASQUEZ Room Number 458 | | J | | | | Patient [id number] Date of Study 10/03/2017 | | Number | | | | Visit Number [id number] | | | | Referring Physician BENEDICT RAYGOZA | | Number | | | | Date of 1955 [employer]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 | | | | Procedure date | | Date: 10/03/2017Start: 10:38 AM | | | | Technical Quality: Limited visualizationStudy Location: ICU | | | | Patient Status: Routine | | Height: 70 inchesWeight: 213.85 poundsBSA: 2.15 m^2BMI: 30.68 kg/m^2 | | | | Conclusions | | Summary | | The number of aortic valve leaflets cannot be identified. | | The left atrium is mildly dilated. | | Normal left ventricular cavity size. | | Mild concentric left ventricular hypertrophy. | | Ejection fraction is visually estimated at 40%. | | Thinning and severe hypokinesis distal anterior, anterior septal, and apical | | segments | | Aortic root dimension within normal limits. | | Mild mitral regurgitation present. | | No evidence of any pericardial effusion. | | The pulmonic valve was not well visualized. | | Normal right atrial size. | | Normal right ventricular size and function. | | Structurally normal tricuspid valve without significant stenosis or | | regurgitation. | | Insufficient amount of tricuspid regurgitation for estimation of pulmonary | | artery pressures. | | When compared with images of previous echo 06/04/17, no significant changes. | | | | Signature | | | | Electronically signed by DELMER MOBLEY MD, [facility](Interpreting | | physician) on 10/03/2017 12:59 PM | | | | | | Findings | | Mitral Valve | | Mild mitral regurgitation present. | | Aortic Valve | | The number of aortic valve leaflets cannot be identified. | | Tricuspid Valve | | Structurally normal tricuspid valve without significant stenosis or | | regurgitation. | | Insufficient amount of tricuspid regurgitation for estimation of pulmonary | | artery pressures. | | Pulmonic Valve | | The pulmonic valve was not well visualized. | | Left Atrium | | The left atrium is mildly dilated. | | Left Ventricle | | Normal left ventricular cavity size. | | Mild concentric left ventricular hypertrophy. | | Ejection fraction is visually estimated at 40%. | | Thinning and severe hypokinesis distal anterior, anterior septal, and apical | | segments | | Right Atrium | | Normal right atrial size. | | Right Ventricle | | Normal right ventricular size and function. | | Pericardial Effusion | | No evidence of any pericardial effusion. | | | | Miscellaneous | | Aortic root dimension within normal limits. | | | | Valves | | | | Mitral Valve | | | | Tissue Doppler | | | | Septal e' Velocity: 0.07 m/s | | | | Aortic Valve | | | | Structures | | | | Left Atrium | | | | LA A/P Dimension: 4.04 cm LA Area: 15.65 cm^2 | | LA Vol/BSA Index: 20 mL/m^2 LA Volume: 42.65 ml | | EF Yszzyhaxh75% | | | | Left Ventricle | | | | Diastolic Dimension: 5.92 cm | | Septum Diastolic: 1.14 cm | | PW Diastolic: 1.1 cm | | EF Calculated: 39% | | | | Miscellaneous | | | | Aorta | | | | Aortic Root: 3.38 cm | | Ascending Aorta: 3.33 cm | + + Blood Gas, Arterial (10/03/20171039) + + + + | Component | Value | Ref Range | + + + + | PH TEMP CORRECTED | 7.21 | | + + + + | PCO2 TEMP CORRECTED | 55 | mmHg | + + + + | PO2 TEMP CORRECTED | 100 | mmHg | + + + + | pH, Arterial | 7.21 (L) | 7.35 - 7.45 | + + + + | pCO2, Arterial | 55 (H) | 35 - 45 mm Hg | + + + + | pO2, Arterial | 100 | >=60 mm Hg | + + + + | HCO3, Arterial | 21.1 | 18.0 - 23.0 mmol/L | + + + + | Base Excess, | <-5.0 (L) | -2.0 - 2.0 mmol/L | | Arterial | | | + + + + | O2 Saturation, | 96 | 95 - 98 % | | Arterial | | | + + + + | Hemoglobin, Arterial | 16.7 | g/dL | + + + + | Oxygenhemoglobin, | 94.3 | 90.0 - 100.0 % | | Arterial | | | + + + + | Methemoglobin, | 1.2 | 0.0 - 1.5 % | | Arterial | | | + + + + | Carboxyhemoglobin, | 1.0 | 0.0 - 1.5 % | | Arterial | | | + + + + | FiO2 | 100.0 | % | + + + + + + + | Specimen | Performing Laboratory | + + + | Blood | [facility] [address] | | | [place] [address] | + + + Culture, MRSA (10/03/2017 1039) + + + + | Component | Value | Ref Range | + + + + | Culture | Negative for MRSA by chromogenic agar | | | | method | | + + + + + + + | Specimen | Performing Laboratory | + + + | Stool | [facility] | | | [place] [address] | + + + Culture, Respiratory, Lower, Smear (10/03/2017 1039) + + + + | Component | Value | Ref Range | + + + + | Culture | 2+ Usual Respiratory Thanh | | + + + + | Culture | 1+ Radha albicans | | + + + + | Gram Stain Result | 1+ White Blood Cells | | + + + + | Gram Stain Result | 1+ Epithelial cells | | + + + + | Gram Stain Result | 2+ Gram positive cocci in chains | | + + + + | Gram Stain Result | 2+ Gram positive cocci in clusters | | + + + + + + + | Specimen | Performing Laboratory | + + + | Respiratory - | [facility] | | Sputum, expectorated | [place] [address] | + + + Influenza A and B RNA, NAAT (10/03/2017 1039) + + + + | Component | Value | Ref Range | + + + + | Influenza A PCR | Negative | Negative | + + + + | Influenza B PCR | Positive (A) | Negative | + + + + + + + | Specimen | Performing Laboratory | + + + | Respiratory - | [facility] | | Nasopharynx | [address] [place] [address] | + + + Campylobacter Ag,Qual (10/03/2017 1039) + + + + | Component | Value | Ref Range | + + + + | Campylobacter AG, | Negative | Negative | | Qual | | | + + + + + + + | Specimen | Performing Laboratory | + + + | Stool | [facility] | | | [place] [address] | + + + Culture, Stool Result (10/03/2017 1039) + + + + | Component | Value | Ref Range | + + + + | Culture | No Salmonella, Shigella, Aeromonas, | | | | Plesiomonas, E. coli O157 or Yersinia | | | | isolated. | | + + + + | Culture | 1+ Usual FloraComment: Consistent with | | | | usual enteric thanh. | | + + + + + + + | Specimen | Performing Laboratory | + + + | Stool | [facility] [address] | | | [place] [address] | + + + Shigatoxin 1 and 2 (10/03/2017 1039) + + + + | Component | Value | Ref Range | + + + + | SHIGATOXIN I | Negative | Negative | + + + + | SHIGATOXIN II | Negative | Negative | + + + + + + + | Specimen | Performing Laboratory | + + + | Stool | [facility] [address] | | | [place] [address] | + + + Culture, Stool (10/03/2017 1039) + + + | Specimen | Performing Laboratory | + + + | Stool | [facility] [address] | | | [place] [address] | + + + + + | Narrative | + + | The following orders were created for panel order Culture, Stool. | | Procedure | | Abnormality Status | | --------- | | ------ Shigatoxin 1 | | and 2[[id number]] Normal Final | | result Culture, Stool | | Result[[id number]] Final | | result Campylobacter | | Ag,Qual[[id number]] Normal Final | | result Please view results for these tests on the | | individual orders. | + + Clostridium difficile A and B EIA (10/03/2017 1039) + + + + | Component | Value | Ref Range | + + + + | Clostridium | NegativeComment: Negative for toxigenic | Negative | | Difficile GDH | Clostridium difficile | | | Antigen | | | + + + + | C. Diff Toxin A/B | Negative | Negative | | EIA | | | + + + + + + + | Specimen | Performing Laboratory | + + + | Stool | [facility] [address] | | | [place] [address] | + + + Ova and Parasite Examination (10/03/2017 1039) + + + + | Component | Value | Ref Range | + + + + | Ova + Parasite Exam | CommentComment: No ova, cysts, or parasites | | | | seen.One negative specimen does not rule | | | | out the possibility of aparasitic | | | | infection.These results were obtained using | | | | wet preparation(s) and trichromestained | | | | smear. This test does not include testing | | | | for Cryptosporidiumparvum, Cyclospora, or | | | | Microsporidia. | | + + + + + + + | Specimen | Performing Laboratory | + + + | Stool | [facility] [address] [facility] | | | [place] [address] | + + + + + | Narrative | + + | Performed at: 01 - [facility] [address] [id number] Lab | | Director: Yesenia Gee MD, Phone: [phone] | + + Fecal leukocytes (10/03/2017 1039) + + + + | Component | Value | Ref Range | + + + + | Lactoferrin, Qual | Negative | Negative | + + + + + + + | Specimen | Performing Laboratory | + + + | Stool | [facility] [address] | | | [place] [address] | + + + Urinalysis with Microscopic with Culture if Indicated (10/03/2017 1038) + + + + | Component | Value | Ref Range | + + + + | COLOR | Straw | Light Yellow, | | | | Yellow, Straw | + + + + | CLARITY | Clear | Clear | + + + + | PH UA | 5.0 | 5.0 - 8.0 | + + + + | Specific [place] | 1.006 | 1.001 - 1.030 | + + + + | PROTEIN UA | Negative | Negative | + + + + | BLOOD UA | Small (A) | Negative | + + + + | GLUCOSE UA | Negative | Negative | + + + + | KETONES UA | Negative | Negative | + + + + | BILIRUBIN UA | Negative | Negative | + + + + | NITRITE UA | Negative | Negative | + + + + | LEUKOCYTES ESTERASE | Negative | Negative | | UA | | | + + + + | UROBILINOGEN UA | Negative | 0.2 mg/dL, 1.0 | | | | mg/dL, Negative | + + + + | WBC UA | 2-5 (A) | 0 - 2 /HPF | + + + + | RBC UA | 5-10 (A) | 0 - 2 /HPF | + + + + | SQUAMOUS EPITHELIAL | 0-2 | 0 - 2 /LPF | | UA | | | + + + + | BACTERIA UA | Negative | Negative /HPF | + + + + | MUCUS UA | Present (A) | Negative /LPF | + + + + | HYALINE CASTS UA | 0-2 | 0 - 2 /LPF | + + + + + + + | Specimen | Performing Laboratory | + + + | Urine | [facility] | | | [place] [address] | + + + LABS - EXTERNAL SCAN (10/03/2017) + + | Narrative | + + | Ordered by an unspecified provider. | + + IMAGING REPORT - EXTERNAL SCAN (10/03/2017) + + | Narrative | + + | Ordered by an unspecified provider. | + + IMAGING REPORT - EXTERNAL SCAN (10/03/2017) + + | Narrative | + + | Ordered by an unspecified provider. | + + ECG - EXTERNAL SCAN (10/03/2017) + + | Narrative | + + | Ordered by an unspecified provider. | + + in this encounter Visit Diagnoses + + | Diagnosis | + + | NSTEMI (non-ST elevated myocardial infarction) (HCC) | + + | Acute myocardial infarction, subendocardial infarction, episode of care unspecified | + + | Ischemic cardiomyopathy | + + | Other specified forms of chronic ischemic heart disease | + + | Community acquired pneumonia, unspecified laterality | + + | Acute upper GI bleed | + + | Hemorrhage of gastrointestinal tract, unspecified | + + | Coronary 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 involving rincon coronary artery of rincon heart without angina | | pectoris | + + | Acute respiratory acidosis | + + | Acidosis | + + | CAD (coronary 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) | + + | Coronary atherosclerosis of unspecified type of vessel, rincon or graft | + + | Pulmonary edema | + + | Pulmonary congestion and hypostasis | + + Admitting Diagnoses + + | Diagnosis | + + | Pulmonary edema - pulmonary edema | + + | Pulmonary congestion and hypostasis | + + | Acute upper GI bleeding - Chest Pain | + + | Hemorrhage of gastrointestinal tract, unspecified | + + | Acute upper GI bleeding [K92.2] | + + Administered Medications + +--------+ +--------+------+------+ | Medication Order | MAR | Action | Dose | Rate | Site | | | Action | Date | | | | + +--------+ +--------+------+------+ | acetaminophen (TYLENOL) tablet | Given | | 650 mg | | | | 650 mg 650 mg, Per OG Tube, | | 8 16:09 | | | | | EVERY 6 HOURS PRN, Pain, Starting | | PST | | | | | 10/03/17 at 2250 | | | | | | + +--------+ +--------+------+------+ +-------+ +--------+---+---+ | Given | | 650 mg | | | | | 8 20:24 | | | | | | PST | | | | +-------+ +--------+---+---+ | Given | | 650 mg | | | | | 8 0:36 | | | | | | PST | | | | +-------+ +--------+---+---+ + +---+ | | | + +---+ | adenosine (ADENOCARD) 3 mg/mL | | | injection Starting 10/05/17 | | | at 1556, For 1 dose, RAYMUNDO, | | | GIOVANI: isiah telles | | + +---+ | | | + +---+ + +-------+ +-------+---+---+ | adenosine (ADENOCARD) injection | Given | | 12 mg | | | | 12 mg 12 mg, Intravenous, ONCE, | | 8 16:06 | | | | | 10/05/17 at 1615, For 1 dose | | PST | | | | + +-------+ +-------+---+---+ +---+---+ | | | +---+---+ + +-------+ +------+---+---+ | adenosine (ADENOCARD) injection | Given | | 6 mg | | | | 6 mg 6 mg, Intravenous, ONCE, | | 8 15:56 | | | | | 10/05/17 at 1615, For 1 dose | | PST | | | | + +-------+ +------+---+---+ +---+---+ | | | +---+---+ + +-------+ +------+---+---+ | albuterol 2.5 mg/3 mL nebulizer | Given | | 5 mg | | | | solution Starting 10/05/17 | | 8 15:13 | | | | | at 1513, For 1 dose, MADDI, | | PST | | | | | RENATA: isiah override | | | | | | + +-------+ +------+---+---+ +---+---+ | | | +---+---+ + +-------+ +-------+---+---+ | albuterol-ipratropium (DUONEB) | Given | 10/10/2017 | 3 mLs | | | | 2.5-0.5 mg/3 mL nebulizer | | 0:48 | | | | | solution 3 mL 3 mL, | | PST | | | | | Nebulization, RT Q4H, First dose | | | | | | | on 10/05/17 at 2000 | | | | | | + +-------+ +-------+---+---+ +-------+ +-------+---+---+ | Given | 10/10/2017 | 3 mLs | | | | | 4:58 | | | | | | PST | | | | +-------+ +-------+---+---+ | Given | 10/10/2017 | 3 mLs | | | | | 9:37 | | | | | | PST | | | | +-------+ +-------+---+---+ +---+---+ | | | +---+---+ + +-------+ +-------+---+---+ | albuterol-ipratropium (DUONEB) | Given | | 3 mLs | | | | 2.5-0.5 mg/3 mL nebulizer | | 8 15:14 | | | | | solution Starting 10/05/17 at | | PST | | | | | 1501, For 1 dose, RENATA LINDA: | | | | | | | cabinet override | | | | | | + +-------+ +-------+---+---+ +---+---+ | | | +---+---+ + +---------+ + +-------+---+ | amiodarone (CORDARONE) 1.8 | New Bag | | 1 mg/min | 33.3 | | | mg/mL in dextrose 5% 500 mL | | 8 16:40 | | mL/hr | | | infusion 1 mg/min (33.3333 | | PST | | | | | mL/hr, rounded to 33.3 mL/hr), at | | | | | | | 33.3 mL/hr, Intravenous, | | | | | | | TITRATED, Starting 10/05/17 at | | | | | | | 1630, For 6 hours, Use 0.22 | | | | | | | micron filter for administration. | | | | | | + +---------+ + +-------+---+ + + + +-------+---+ | Rate/Dose Verify | | 1 mg/min | 33.3 | | | | 8 19:22 | | mL/hr | | | | PST | | | | + + + +-------+---+ +---+---+ | | | +---+---+ + +---------+ +--------+-------+---+ | amiodarone (CORDARONE) 1.8 | New Bag | | 0.5 | 16.7 | | | mg/mL in dextrose 5% 500 mL | | 8 22:00 | mg/min | mL/hr | | | infusion 0.5 mg/min (16.6667 | | PST | | | | | mL/hr, rounded to 16.7 mL/hr), at | | | | | | | 16.7 mL/hr, Intravenous, | | | | | | | TITRATED, Starting 10/05/17 at | | | | | | | 2240, For 18 hours, Use 0.22 | | | | | | | micron filter for administration. | | | | | | + +---------+ +--------+-------+---+ +---+---+ | | | +---+---+ + +-------+ +--------+---+---+ | amiodarone (PACERONE) tablet | Given | 10/10/2017 | 200 mg | | | | 200 mg 200 mg, Oral, DAILY, | | 9:08 | | | | | First dose on 10/10/17 at 0900 | | PST | | | | + +-------+ +--------+---+---+ +---+---+ | | | +---+---+ + +-------+ +--------+---+---+ | amiodarone (PACERONE) tablet | Given | | 400 mg | | | | 400 mg 400 mg, Oral, 2 TIMES | | 8 21:08 | | | | | DAILY, First dose on 10/07/17 | | PST | | | | | at 0900 | | | | | | + +-------+ +--------+---+---+ +-------+ +--------+---+---+ | Given | 10/08/2017 | 400 mg | | | | | 8:56 | | | | | | PST | | | | +-------+ +--------+---+---+ | Given | 10/08/2017 | 400 mg | | | | | 21:13 | | | | | | PST | | | | +-------+ +--------+---+---+ +---+---+ | | | +---+---+ + +-------+ +--------+---+---+ | amiodarone (PACERONE) tablet | Given | 10/09/2017 | 400 mg | | | | 400 mg 400 mg, Oral, 2 TIMES | | 9:08 | | | | | DAILY, First dose on Thu10/09/17 | | PST | | | | | at 0900, For 4 days | | | | | | + +-------+ +--------+---+---+ +---+---+ | | | +---+---+ + +-------+ +--------+-------+---+ | amiodarone in dextrose | Given | | 150 mg | 600 | | | (NEXTERONE) 150 mg/100 mL bolus | | 8 16:18 | | mL/hr | | | 150 mg 150 mg, Intravenous, | | PST | | | | | Administer over 10 Minutes, ONCE, | | | | | | | 10/05/17 at 1630, For 1 dose, | | | | | | | For Rhythm Control | | | | | | + +-------+ +--------+-------+---+ + +---+ | | | + +---+ | amiodarone in dextrose | | | (NEXTERONE) 150 mg/100 mL bolus | | | Starting 10/05/17 at 1612, For | | | 1 dose, GIOVANI FONSECA: isiah | | | override | | + +---+ | | | + +---+ + +-------+ +-------+---+---+ | aspirin chewable tablet 81 mg | Given | 10/08/2017 | 81 mg | | | | 81 mg, Per OG Tube, DAILY, First | | 8:58 | | | | | dose on 10/03/17 at 1015 | | PST | | | | + +-------+ +-------+---+---+ +-------+ +-------+---+---+ | Given | 10/09/2017 | 81 mg | | | | | 9:08 | | | | | | PST | | | | +-------+ +-------+---+---+ | Given | 10/10/2017 | 81 mg | | | | | 9:08 | | | | | | PST | | | | +-------+ +-------+---+---+ +---+---+ | | | +---+---+ + +-------+ +-------+---+---+ | atorvaSTATin (LIPITOR) tablet | Given | 10/08/2017 | 40 mg | | | | 40 mg 40 mg, Per OG Tube, DAILY, | | 8:59 | | | | | First dose on 10/03/17 at | | PST | | | | | 1015 | | | | | | + +-------+ +-------+---+---+ +-------+ +-------+---+---+ | Given | 10/09/2017 | 40 mg | | | | | 9:08 | | | | | | PST | | | | +-------+ +-------+---+---+ | Given | 10/10/2017 | 40 mg | | | | | 9:08 | | | | | | PST | | | | +-------+ +-------+---+---+ +---+---+ | | | +---+---+ + +---------+ +--------+-------+---+ | azithromycin (ZITHROMAX) 500 mg | New Bag | | 500 mg | 255 | | | in sodium chloride 0.9% 250 mL | | 8 12:14 | | mL/hr | | | IVPB 500 mg, Intravenous, | | PST | | | | | Administer over 1 Hours, DAILY, | | | | | | | First dose on 10/03/17 at | | | | | | | 1100, Keep in refrigerator. | | | | | | + +---------+ +--------+-------+---+ +---------+ +--------+-------+---+ | New Bag | | 500 mg | 255 | | | | 8 8:43 | | mL/hr | | | | PST | | | | +---------+ +--------+-------+---+ | New Bag | | 500 mg | 255 | | | | 8 8:29 | | mL/hr | | | | PST | | | | +---------+ +--------+-------+---+ +---+---+ | | | +---+---+ + +-------+ + +---+---+ | carvedilol (COREG) tablet 3.125 | Given | 10/09/2017 | 3.125 mg | | | | mg 3.125 mg, Oral, 2 TIMES | | 7:40 | | | | | DAILY WITH BREAKFAST & DINNER, | | PST | | | | | First dose on [facility] 10/08/17 at 0915 | | | | | | + +-------+ + +---+---+ +-------+ + +---+---+ | Given | 10/09/2017 | 3.125 mg | | | | | 17:01 | | | | | | PST | | | | +-------+ + +---+---+ | Given | 10/10/2017 | 3.125 mg | | | | | 9:08 | | | | | | PST | | | | +-------+ + +---+---+ +---+---+ | | | +---+---+ + +---------+ +-----+-------+ + | cefTRIAXone (ROCEPHIN) 2 g in | New Bag | 10/08/2017 | 2 g | 100 | Left Arm | | sodium chloride 0.9% 50 mL IVPB | | 9:37 | | mL/hr | | | 2 g, Intravenous, Administer over | | PST | | | | | 30 Minutes, EVERY 24 HOURS | | | | | | | (Daily), First dose on Sun | | | | | | | 10/04/17 at 0900, Activate system | | | | | | | and mix before use. | | | | | | + +---------+ +-----+-------+ + +---------+ +-----+-------+---+ | New Bag | 10/09/2017 | 2 g | 100 | | | | 10:21 | | mL/hr | | | | PST | | | | +---------+ +-----+-------+---+ | New Bag | 10/10/2017 | 2 g | 100 | | | | 9:08 | | mL/hr | | | | PST | | | | +---------+ +-----+-------+---+ +---+---+ | | | +---+---+ + +-------+ +-------+---+---+ | clopidogrel (PLAVIX) tablet 75 | Given | 10/08/2017 | 75 mg | | | | mg 75 mg, Per OG Tube, DAILY, | | 8:57 | | | | | First dose on 10/03/17 at 1015 | | PST | | | | + +-------+ +-------+---+---+ +-------+ +-------+---+---+ | Given | 10/09/2017 | 75 mg | | | | | 9:08 | | | | | | PST | | | | +-------+ +-------+---+---+ | Given | 10/10/2017 | 75 mg | | | | | 9:08 | | | | | | PST | | | | +-------+ +-------+---+---+ + +---+ | | | + +---+ | dextrose 50% injection 12.5 g | | | 12.5 g, Intravenous, PRN, Low | | | Blood Sugar, Starting 10/03/17 | | | at 0958 | | + +---+ | | | + +---+ + +-------+ +-------+---+ + | enoxaparin (LOVENOX) 40 mg/0.4 | Given | | 40 mg | | Abdomen- | | mL injection 40 mg 40 mg, | | 8 8:08 | | | RLQ | | Subcutaneous, EVERY 24 HOURS | | PST | | | | | (Daily), First dose on Sun | | | | | | | 10/04/17 at 0900 | | | | | | + +-------+ +-------+---+ + +---+---+ | | | +---+---+ + +-------+ +--------+---+---+ | fentaNYL (PF) injection 25-50 | Given | | 50 mcg | | | | mcg 25-50 mcg, Intravenous, | | 8 9:30 | | | | | EVERY 1 HOUR PRN, Pain, or | | PST | | | | | distress or agitation, Starting | | | | | | | 10/03/17 at 2059 | | | | | | + +-------+ +--------+---+---+ +-------+ +--------+---+---+ | Given | | 50 mcg | | | | | 8 11:16 | | | | | | PST | | | | +-------+ +--------+---+---+ | Given | | 50 mcg | | | | | 8 14:17 | | | | | | PST | | | | +-------+ +--------+---+---+ + +---+ | | | + +---+ | furosemide (LASIX) 10 mg/mL | | | injection Starting 10/05/17 | | | at 1512, For 1 dose, RAYMUNDO, | | | GIOVANI: isiah telles | | + +---+ | | | + +---+ + +-------+ +-------+---+---+ | furosemide (LASIX) injection 40 | Given | | 40 mg | | | | mg 40 mg, Intravenous, ONCE, | | 8 15:13 | | | | | 10/05/17 at 1530, For 1 dose | | PST | | | | + +-------+ +-------+---+---+ +---+---+ | | | +---+---+ + +-------+ +-------+---+---+ | furosemide (LASIX) injection 40 | Given | | 40 mg | | | | mg 40 mg, Intravenous, ONCE, | | 8 22:02 | | | | | 10/05/17 at 2200, For 1 dose | | PST | | | | + +-------+ +-------+---+---+ +---+---+ | | | +---+---+ + +-------+ +-------+---+---+ | furosemide (LASIX) injection 40 | Given | | 40 mg | | | | mg 40 mg, Intravenous, ONCE, | | 8 3:52 | | | | | 10/07/17 at 0400, For 1 dose | | PST | | | | + +-------+ +-------+---+---+ +---+---+ | | | +---+---+ + +-------+ +-------+---+---+ | furosemide (LASIX) tablet 40 mg | Given | 10/08/2017 | 40 mg | | | | 40 mg, Oral, DAILY, First dose | | 9:37 | | | | | on Radha 10/08/17 at 0915 | | PST | | | | + +-------+ +-------+---+---+ +---+---+ | | | +---+---+ + +-------+ +--------+---+ + | heparin 5,000 units/mL | Given | 10/09/2017 | 5,000 | | Abdomen- | | injection 5,000 Units 5,000 | | 9:08 | Units | | RUQ | | Units, Subcutaneous, EVERY 12 | | PST | | | | | HOURS (2 times per day), First | | | | | | | dose on Thu10/07/17 at 2100 | | | | | | + +-------+ +--------+---+ + +-------+ +--------+---+ + | Given | 10/09/2017 | 5,000 | | Abdomen- | | | 20:44 | Units | | RLQ | | | PST | | | | +-------+ +--------+---+ + | Given | 10/10/2017 | 5,000 | | Abdomen- | | | 9:08 | Units | | LLQ | | | PST | | | | +-------+ +--------+---+ + +---+---+ | | | +---+---+ + +-------+ +---------+---+---+ | HYDROcodone-acetaminophen | Given | 10/10/2017 | 2 | | | | (NORCO) 5-325 mg per tablet 1-2 | | 4:51 | tablets | | | | tablet 1-2 tablet, Oral, EVERY 4 | | PST | | | | | HOURS PRN, Pain, Pain, Starting | | | | | | | 10/05/17 at 2133 | | | | | | + +-------+ +---------+---+---+ +-------+ +---------+---+---+ | Given | 10/10/2017 | 2 | | | | | 9:07 | tablets | | | | | PST | | | | +-------+ +---------+---+---+ | Given | 10/10/2017 | 2 | | | | | 13:05 | tablets | | | | | PST | | | | +-------+ +---------+---+---+ + +---+ | | | + +---+ | insulin lispro (humaLOG | | | KWIKPEN) 100 units/mL injection | | | (pen) 0-6 Units 0-6 Units, | | | Subcutaneous, 4 TIMES DAILY WITH | | | MEALS & NIGHTLY, First dose on | | | 10/03/17 at 1200, CORRECTION | | | SCALE: Blood Glucose (BG) < | | | 150: None BG | | | 150-200: DAY: 1 units. NIGHT: 0 | | | units BG 201-250: DAY: 2 units. | | | NIGHT: 1 units BG 251-300: | | | DAY: 3 units. NIGHT: 2 units | | | BG 301-350: DAY: 4 units. NIGHT: | | | 3 units BG 351-400: DAY: 5 | | | units. NIGHT: 4 units BG > | | | 400 : DAY: 6 units. NIGHT: 5 | | | units | | | AND CALL PROVIDER Use DAY DOSE | | | for doses scheduled: AC, | | | NPO, Daytime [id number] Use NIGHT | | | DOSE for doses scheduled: | | | HS, 3AM, Nighttime [id number] | | + +---+ | | | + +---+ + +---------+ +---+-------+---+ | lactated ringers (LR) infusion | New Bag | | | 100 | | | at 60 mL/hr, Intravenous, | | 8 21:41 | | mL/hr | | | CONTINUOUS, Starting 10/03/17 | | PST | | | | | at 1945 | | | | | | + +---------+ +---+-------+---+ + + +---+ +---+ | Rate/Dose Change | | | 60 mL/hr | | | | 8 13:01 | | | | | | PST | | | | + + +---+ +---+ | Rate/Dose Change | | | 100 | | | | 8 10:50 | | mL/hr | | | | PST | | | | + + +---+ +---+ +---+---+ | | | +---+---+ + +-------+ +-------+---+---+ | metoprolol tartrate (LOPRESSOR) | Given | | 25 mg | | | | tablet 25 mg 25 mg, Oral, EVERY | | 8 11:42 | | | | | 6 HOURS (4 times per day), First | | PST | | | | | dose on 10/06/18 at 1200, | | | | | | | Hold if SBP<95 or HR<55 | | | | | | + +-------+ +-------+---+---+ +-------+ +-------+---+---+ | Given | | 25 mg | | | | | 8 23:18 | | | | | | PST | | | | +-------+ +-------+---+---+ | Given | 10/08/2017 | 25 mg | | | | | 6:25 | | | | | | PST | | | | +-------+ +-------+---+---+ +---+---+ | | | +---+---+ + +-------+ +-------+---+---+ | metoprolol tartrate (LOPRESSOR) | Given | | 50 mg | | | | tablet 50 mg 50 mg, Oral, 3 | | 8 16:52 | | | | | TIMES DAILY, First dose on Mon | | PST | | | | | 10/05/17 at 1700 | | | | | | + +-------+ +-------+---+---+ +-------+ +-------+---+---+ | Given | | 50 mg | | | | | 8 1:56 | | | | | | PST | | | | +-------+ +-------+---+---+ + +---+ | | | + +---+ | nitroglycerin (NITROSTAT) SL | | | tablet 0.4 mg 0.4 mg, | | | Sublingual, EVERY 5 MIN PRN, | | | Chest pain, Starting 10/03/17 | | | at 1610, May give up to 3 doses. | | | Notify physician after 2nd dose | | | given. Hold for SBP<100 | | + +---+ | | | + +---+ + + + +---------+---------+---+ | nitroglycerin in dextrose 100 | Rate/Dos | | 5 | 3 mL/hr | | | mcg/mL infusion 5-250 mcg/min | e Change | 8 15:15 | mcg/min | | | | (3-150 mL/hr), at 3-150 mL/hr, | | PST | | | | | Intravenous, TITRATED, Starting | | | | | | | 10/05/17 at 1530, Initial | | | | | | | dose: 5 mcg/min | | | | | | + + + +---------+---------+---+ + + +---------+---------+---+ | Rate/Dose Change | | 10 | 6 mL/hr | | | | 8 15:16 | mcg/min | | | | | PST | | | | + + +---------+---------+---+ | Rate/Dose Change | | 5 | 3 mL/hr | | | | 8 15:25 | mcg/min | | | | | PST | | | | + + +---------+---------+---+ +---+---+ | | | +---+---+ + + + +---------+-------+---+ | norepinephrine in NS (LEVOPHED) | Rate/Dos | | 5 | 18.8 | | | 16 mcg/mL infusion 1-30 mcg/min | e Change | 8 16:05 | mcg/min | mL/hr | | | (3.75-112.5 mL/hr, rounded to | | PST | | | | | 3.8-112.5 mL/hr), at 3.8-112.5 | | | | | | | mL/hr, Intravenous, TITRATED, | | | | | | | Starting 10/03/17 at 1015, | | | | | | | Initial dose: 3 mcg/min | | | | | | + + + +---------+-------+---+ + + +---------+-------+---+ | Rate/Dose Change | | 3 | 11.3 | | | | 8 18:00 | mcg/min | mL/hr | | | | PST | | | | + + +---------+-------+---+ | Rate/Dose Change | | 1 | 3.8 | | | | 8 20:42 | mcg/min | mL/hr | | | | PST | | | | + + +---------+-------+---+ +---+---+ | | | +---+---+ + +-------+ +---+---+---+ | nystatin (MYCOSTATIN) powder | Given | 10/08/2017 | | | | | Topical, 2 TIMES DAILY, First | | 21:14 | | | | | dose on Radha 10/08/17 at 0915, | | PST | | | | | Sprinkle powder on affected area. | | | | | | + +-------+ +---+---+---+ +-------+ +---+---+---+ | Given | 10/09/2017 | | | | | | 9:30 | | | | | | PST | | | | +-------+ +---+---+---+ | Given | 10/09/2017 | | | | | | 20:51 | | | | | | PST | | | | +-------+ +---+---+---+ +---+---+ | | | +---+---+ + +-------+ +-------+---+---+ | oseltamivir (TAMIFLU) 6 mg/mL | Given | | 30 mg | | | | suspension 30 mg 30 mg, Per OG | | 8 12:03 | | | | | Tube, 2 TIMES DAILY, First dose | | PST | | | | | on 10/03/17 at 1200, Shake | | | | | | | well. Keep in refrigerator. | | | | | | + +-------+ +-------+---+---+ +-------+ +-------+---+---+ | Given | | 30 mg | | | | | 8 22:05 | | | | | | PST | | | | +-------+ +-------+---+---+ | Given | | 30 mg | | | | | 8 8:07 | | | | | | PST | | | | +-------+ +-------+---+---+ +---+---+ | | | +---+---+ + +-------+ +-------+---+---+ | oseltamivir (TAMIFLU) capsule | Given | | 75 mg | | | | 75 mg 75 mg, Oral, 2 TIMES | | 8 8:03 | | | | | DAILY, First dose on 10/04/17 | | PST | | | | | at 2100, Capsules may be opened & | | | | | | | contents mixed with sweetened | | | | | | | liquid such as chocolate syrup. | | | | | | + +-------+ +-------+---+---+ +-------+ +-------+---+---+ | Given | | 75 mg | | | | | 8 21:08 | | | | | | PST | | | | +-------+ +-------+---+---+ | Given | 10/08/2017 | 75 mg | | | | | 8:55 | | | | | | PST | | | | +-------+ +-------+---+---+ +---+---+ | | | +---+---+ + +-------+ +-------+---+---+ | pantoprazole (PROTONIX) DR | Given | 10/09/2017 | 40 mg | | | | tablet 40 mg 40 mg, Oral, 2 | | 6:34 | | | | | TIMES DAILY BEFORE MEALS, First | | PST | | | | | dose on Thu10/07/17 at 1630, Do | | | | | | | not cut or crush. | | | | | | + +-------+ +-------+---+---+ +-------+ +-------+---+---+ | Given | 10/09/2017 | 40 mg | | | | | 17:01 | | | | | | PST | | | | +-------+ +-------+---+---+ | Given | 10/10/2017 | 40 mg | | | | | 6:34 | | | | | | PST | | | | +-------+ +-------+---+---+ +---+---+ | | | +---+---+ + +-------+ +-------+---+---+ | pantoprazole (PROTONIX) | Given | | 40 mg | | | | injection 40 mg 40 mg, | | 8 12:05 | | | | | Intravenous, DAILY, First dose on | | PST | | | | | 10/03/17 at 1015, Slow IV | | | | | | | push (dilute with 10ml NS). | | | | | | + +-------+ +-------+---+---+ +-------+ +-------+---+---+ | Given | | 40 mg | | | | | 8 8:08 | | | | | | PST | | | | +-------+ +-------+---+---+ +---+---+ | | | +---+---+ + +-------+ +-------+---+---+ | pantoprazole (PROTONIX) | Given | | 40 mg | | | | injection 40 mg 40 mg, | | 8 8:31 | | | | | Intravenous, 2 TIMES DAILY, First | | PST | | | | | dose on 10/05/17 at 0900, | | | | | | | Slow IV push (dilute with 10ml | | | | | | | NS). | | | | | | + +-------+ +-------+---+---+ +-------+ +-------+---+---+ | Given | | 40 mg | | | | | 8 20:35 | | | | | | PST | | | | +-------+ +-------+---+---+ | Given | | 40 mg | | | | | 8 8:03 | | | | | | PST | | | | +-------+ +-------+---+---+ +---+---+ | | | +---+---+ + +-------+ +--------+---+---+ | potassium chloride (K-DUR) ER | Given | 10/09/2017 | 20 mEq | | | | tablet 20 mEq 20 mEq, Oral, | | 7:41 | | | | | ONCE, Sharla 10/09/17 at 0730, For 1 | | PST | | | | | dose | | | | | | + +-------+ +--------+---+---+ +---+---+ | | | +---+---+ + +-------+ +--------+---+---+ | potassium chloride (K-DUR) ER | Given | | 40 mEq | | | | tablet 40 mEq 40 mEq, Oral, | | 8 11:22 | | | | | ONCE, Jadyn 10/06/17 at 1100, For 1 | | PST | | | | | dose | | | | | | + +-------+ +--------+---+---+ +---+---+ | | | +---+---+ + +-------+ +--------+---+---+ | potassium chloride (KLOR-CON) | Given | 10/08/2017 | 10 mEq | | | | ER tablet 10 mEq 10 mEq, Oral, 2 | | 12:39 | | | | | TIMES DAILY, First dose on Radha | | PST | | | | | 10/08/17 at 0915, May take with | | | | | | | food to decrease GI upset. | | | | | | + +-------+ +--------+---+---+ +-------+ +--------+---+---+ | Given | 10/08/2017 | 10 mEq | | | | | 21:13 | | | | | | PST | | | | +-------+ +--------+---+---+ +---+---+ | | | +---+---+ + +---------+ +--------+-------+---+ | potassium chloride 40 mEq in | New Bag | | 40 mEq | 130 | | | sodium chloride 0.45% 500 mL IVPB | | 8 9:58 | | mL/hr | | | 40 mEq, Intravenous, Administer | | PST | | | | | over 4 Hours, ONCE, 10/06/17 | | | | | | | at 0900, For 1 dose | | | | | | + +---------+ +--------+-------+---+ +---+---+ | | | +---+---+ + +---------+ + +-------+---+ | propofol infusion (DIPRIVAN) 10 | New Bag | | 50 | 29.1 | | | mg/mL infusion 10-70 mcg/kg/min | | 8 9:30 | mcg/kg/m | mL/hr | | | | | PST | in | | | | 97 kg Order-specific weight | | | | | | | (5.82-40.74 mL/hr, rounded to | | | | | | | 5.8-40.7 mL/hr), at 5.8-40.7 | | | | | | | mL/hr, Intravenous, TITRATED, | | | | | | | Starting 10/03/17 at 1015, If | | | | | | | institutional policy permits it, | | | | | | | bolus 30 mg IV every 5 minutes | | | | | | | prn breakthrough agitation | | | | | | | (maximum total bolus dose = 150mg | | | | | | | per hour) Shake well. Do not | | | | | | | filter. Expires 12 hours after | | | | | | | spiked. | | | | | | + +---------+ + +-------+---+ + + + +-------+---+ | Rate/Dose Change | | 30 | 17.5 | | | | 8 11:44 | mcg/kg/m | mL/hr | | | | PST | in | | | + + + +-------+---+ | Rate/Dose Verify | | 30 | 17.5 | | | | 8 11:45 | mcg/kg/m | mL/hr | | | | PST | in | | | + + + +-------+---+ +---+---+ | | | +---+---+ + + + +---------+ +---+ | sodium chloride 0.9% (NS) bolus | Bolus | | 582 mLs | 97 mL/hr | | | 582 mL 582 mL (6 mL/kg | from Bag | 8 16:53 | | | | | 97 kg), Intravenous, Administer | | PST | | | | | over 6 Hours, ONCE, 10/03/17 | | | | | | | at 1630, For 1 dose, 1 ml/kg/hr x | | | | | | | 6 hours | | | | | | + + + +---------+ +---+ +---+---+ | | | +---+---+ + +---------+ +---+-------+---+ | sodium chloride 0.9% (NS) | New Bag | | | 100 | | | infusion at 100 mL/hr, | | 8 17:28 | | mL/hr | | | Intravenous, CONTINUOUS, Starting | | PST | | | | | 10/03/17 at 1615 | | | | | | + +---------+ +---+-------+---+ +---+---+ | | | +---+---+ in this encounter"
--- OUTSIDE RECORDS SUMMARY | ~2017-12-16 | XMS | Clinical Summary ---
Demographics + + + | Address | [address] [place] [address] [address] | | | [place] [address] | + + + | Home Phone | | + + + | Preferred Language | Unknown | + + + | Marital Status | | + + + | Buddhism Affiliation | NRP | + + + [...] | | | | | [place] [address] | | + + + + + Care Team Providers + +------+ + | Care Intelligence Operations Name | Role | Phone | + +------+ + | Chato Matson MD | PP | | + +------+ + Source Comments EULOGIO is fully live on both [facility] and [facility] InPatient.[facility] Allergies No Known Allergies Current [...] resynchronization therapy | 10/17/2017 | | defibrillator (SUPERVISOR LEAF SPRING FABRICATION-D) | | + + + | Influenza, [...] edema. 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 | | -secretions improving, cough strong -s/p [...] stayExtubated 03/22, started on | | NC L9Iypmy infusion begun 03/22 for daily goal -1 [...] during cath | | lab procedure at [facility]. Was shocked 17 times | | [...] | | 2018 | Event | | CLOTH SHRINKER | | +--------+ + + + + [...] | | | or | | | (SUPERVISOR LEAF SPRING FABRICATION-D)8) | | | Paroxysmal | | | atrial | | | flutter | | | (HCC)9) | | | Influenza, | | | [id number] | | | ) | | | [...] | | induction | | | 2) SUPERVIS[employer] LE[employer]ING FABRICATION-D | | | implantatio | | | [...] | | course at | | | [place] | | | prior to | | [...] | | therefore a | | | SUPERVISOR LEAF SPRING FABRICATION-D was | | | implanted. | | [...] | and thus a | | | SUPERVISOR LEAF SPRING FABRICATION-D was | | | placed. | | [...] | | EP 2/9, | | | SUPERVISOR LEAF SPRING FABRICATION-D | | | -- | | | [...] | be noted on | | | SUPERVISOR LEAF SPRING FABRICATION-D and | | | could | | [...] | on. EGD at | | | [place] | | | on 10/05 | | [...] | | # Pre | | | [id number] | | | 5.6 on | | [...] | Wound check | | | from SUPER[employer]ING FABRICATION-D | | | | | | placement2. [...] | | | [place] | | | [place], | | | ACNP. Go | | [...] | | | CLINICS | | | [id number] | | | [address] | | | [address] | | | [place] | | | [phone] | | | [phone] | | | [place] | | | [place], | | | ACNP. Go | | [...] | | | CLINICS | | | [id number] | | | [address] | | | [address] | | | [place] | | | [phone] | | | [phone] | | | [...] | | 25 mg | | | [id number] | | | y known as: | [...] | CR 30 mg | | | [id number] | | | y known as: | [...] | | mm Resolute | | | [place] | | | drug-elutin | | | [...] | | | us:Phone: | | | [phone] | | | [phone] | | | Cardiology | | | Division | | | Office | | | | | | [phone] | | | 0 | | | [...] | | | lar | | | [place] | | | [place] | | | Health & | [...] | | | | (FLU SHOT) | 8 | | | + + [...] | | 2018 | /[id number] | | Sopihe Darby MD | | | | | | [id number] | | | | | | | | / | + +------+--------+ +--------+--------+--------+ | Stent-10/15/2017Implanted: Qty: | | | MEDTRONIC | | | [id number] | | 1 on 10/15/2017 by Ly, | | | HANDY | | | [id number] | | Tejal Pettit MD | | | | | | X / | | | | | | | | /[id number] | | | | | | | | [id number] | + +------+--------+ +--------+--------+--------+ Results CAPILLARY BLOOD [...] TESTS [address] | | | [place] [address] | + + + X-RAY CHEST 2 [...] Note | + + | Service Account, [employer] In Interface - 10/17/2017 7:51 AM PST [...] | + + + | Blood | [facility], CORE [address] [place] [address] | | | [place] [address] | + + + BASIC METABOLIC SET [...] | >60 | >60 mL/min | | [place] | | | + + + + | EGFR NON | 51 (L) | >60 mL/min | | -[place] | | | + + + + [...] | + + + | Blood | [facility], CORE [address] | | | [place], [place] [address] | + + + + + | [...] | | ------ CBC (HEMOGRAM) | | ONLY[[id number]] Abnormal Final | | result Please view [...] | Narrative | + + | STUDY: MS CHEST 1 VIEW HISTORY: Evaluated lead placement. COMPARISON: | | STUDY: MS CHEST 1 VIEW FINDINGS: A new left [...] Note | + + | Service Account, [employer] In Interface - 10/17/2017 7:51 AM PST STUDY: MS CHEST 1 | | VIEWHISTORY: Evaluated lead placement.COMPARISON: STUDY: MS CHEST 1 VIEWFINDINGS: A | | new [...] procedure. | | He is candidate for SUPERVIS[employer] LEAF [employer]ING FABRICATION-D since he as class 2 baseline heart failure and currently | | class 3 heart failure with LBBB 152 msec. PROCEDURE ATTENDING: Sophie Darby | | FELLOW: Amarilis Castle MD PROCEDURAL | | DATA: Procedure: New implant Implanted generator sealer operator: Medtronic | | Implanted leads sealer operator: Medtronic Radha-procedure Anticoag: None Presenting | | rhythm: NSR Existing device under advisory? No Pacemaker dependent: No | | Method of sedation: Conscious sedation - Anesth provider Response to | | sedation: Normal Fluoroscopy time (see log): 45-47 minutes | | MEDICATIONS: See anesthesia log and dairy laboratory technician log INTAKE AND OUTPUT: 1000 ml | [...] DEVICE INFORMATION: | | BiV-ICD pulse generator: Equalizing Saw Operator: Medtronic Model number: [id number] | | Serial number: [id number] RA lead: Equalizing Saw Operator: Medtronic Model number: | | 5076-52 Serial number: [id number] RV lead: Equalizing Saw Operator: Medtronic | | Model number: [id number] Serial number: [id number] CS lead: | | Equalizing Saw Operator: Medtronic Model number: [id number] Serial number: [id number] | | MEASURED PARAMETERS: RA lead: P [...] | | Fellow Division of Cardiovascular Medicine [facility] | | Pager [phone] Pursuant to Federal Medicare requirements, I certify that I, Sophie | | Wilner BREWER, was present for the entire procedure, performed all critical elements, and | | participated directly in the generation of this report. Sophie Darby MD | | Cardiovascular Medicine - Electrophysiology [facility] Cardiovascular [place] at [facility] | | | + + VBG-FULL ABL, [...] Laboratory | + + + | | [facility] POINT [facility] TESTS [address] | | | [place] [address] | + + + INTRAPROCEDURE IMAGING (10/16/2017 [...] Laboratory | + + + | | [facility] [address] [place] [address] | | | [place] [address] | + + + CARDIAC CATH (10/15/2017 2:11 PM) + + | Procedure Note | + + | Tejal Modi MD - 10/15/2017 2:11 PM PST DATE OF PROCEDURE:October 15, | | 2018PERFORMING PHYSICIAN:Tejal Modi [facility] ATTENDING:Mike Bray MDThere was no | [...] 110 mL.FLUOROSCOPY TIME:17.8 minutes.FLUOROSCOPY | | DAP:7406.0 xQvmz5LYTXRPSKJMLS:1. Left ventricular pressure 91/23 mmHg.2. Aortic | | pressure 93/72 mmHg, mean of 80 mmHg. 3. Heart rate 71 beats per minute.ACCESS:1. | | 14-British Impella sheath in the right femoral artery.2. 7-British sheath in the left | | femoral artery.3. 6-British sheath in the right femoral vein.ESTIMATED BLOOD [...] | micropuncture technique and ultrasound guidance, a 5-British sheath was inserted in the | | right femoral artery and a 6-British sheath was inserted in the right femoral vein. Two | | Perclose devices were deployed in the preclosure method and then the 5-British sheath was | | exchanged over an Amplatz stiff wire for the 14-British Impella sheath. A 5-British | | angled pigtail catheter was then [...] technique and ultrasound guidance and placed a 7-British sheath. A 7-British XB 3.5 guide | | catheter was [...] and pulled out of the body. The 14-British sheath was | | then removed and [...] with one 3.0 x 18 mm Resolute [place] drug-eluting stent. Successful | | percutaneous coronary [...] | | 10/15/2017 13:25:02DT: 10/15/2017 14:11:10Job #: [id number] | |2. Lesion type: C. | |3. [...] with one 3.0 x 18 mm Resolute [place] drug-eluting stent. Successful percutaneous coronary transluminal angio [...] |BCN/MODL | | | | | | /[id number] | + + ACT, POC-CCL ONLY (10/15/2017 [...] | + + + | Blood | [facility], POINT OF CARE TESTS [address] | | | [place] [address] | + + + BRUSHING MACHINE OPERATOR EMERGENT/IMMEDIATE PROCEDURE (10/15/2017 11:00 AM) + + | Narrative | + + | Procedure performed in the Cardiac Assembler Type Bar And Segment. See procedure notes for details. | + [...] | + + + | Blood | [facility], CORE [address] | | | [place], [place] [address] | + + + + + | [...] Laboratory | + + + | | [facility] RADIOLOGY VOICE RECOGNITION | + + + [...] | | significant tracer uptake within the usw-cr-rqhtef anterior wall/interventricular septum | | and apex [...] Note | + + | Service Account, [employer] In Interface - 10/14/2017 5:47 PM PST [...] significant tracer | | uptake within the aih-ui-ohyrqz anterior wall/interventricular septum and apex | | corresponding to same non-perfused areas seen on myocardial rest perfusion scan, | | compatible with nonviable myocardium in these regions. I have personally reviewed the | | images and, if necessary, edited the report. I agree with the report as now presented. | |No significant tracer uptake within the bek-sc-jpcgob anterior wall/interventricular septum and apex corresponding to [...] Laboratory | + + + | | [facility] RADIOLOGY VOICE RECOGNITION | + + + [...] Note | + + | Service Account, [employer] In Interface - 10/13/2017 5:30 PM [...] | + + + | Blood | [facility], CORE [address] [facility] [address] | | | [place] [address] | + + + + + | [...] Narrative | + + | Report ====== Faucet Polisher: Rodríguez Fortune ([id number]), suhbham lockhart Shift Boss: shubham | | richy Fellow: shubham lockhart Regroover: shubham lockhart Viewer: shubham | | richy Report Date: 16 Oct 2017, 09:22:25 [facility] [place] Patient ------- Patient: | | RNO MCKEON Acc #: [id number] | | Ethnicity: N Status: Final Report [...] Formula) | | Image Quality: Good Scanner Equalizing Saw Operator: [employer] Scanner Model: Nubity | | Scanner Serial Number: [id number] Scanner Software Platform: 5.3.15.3.1.0 Staff: Rodríguez | | Tong Modality: MR Indication Name: routine Protocol Name: CMR W Flows WO Contrast | | Findings -------- Non-cardiac findings were reviewed by Dr. Curtis. This exam was | | terminated prematurely and is lmiited to line assembler images. There are bilateral pleural | | [...] - 10/16/2017 9:22 AM PST | | Report======Faucet Polisher: Rodríguez Tong ([id number]), shubham Rodriguezalyst: shubham | | richyFellow: shubham Garciaechnician: shubham Johniewer: shubham | | jadarkomReport Date: 16 Oct 2017, 09:22:25 PSTPatient-------Patient: RON MCKEON | | JMedical Record Number: [id number] ID: [id number] #: [id number]: [id number]: | | Final ReportReport Number: [id number]: MaleBirthdate: 1955 (61 yrs)Study Date: 05 | | Oct 2017Study Description: CMR with Flows with ContrastReferring Physician: KHURRAM | | HEITNERBlood Pressure: /Heart rate:Height (cm): 0Weight (kg): 89BMI (kg/m ): 0BSA | | (m ): 0 (Mosteller Formula)Image Quality: AylacanC2C REI Software Equalizing Saw Operator: [employer] | | [employer] Model: Social Insight Serial Number: [id number] Software Platform: | | 5.3.15.3.1.0Staff: Rodríguez FortuneModality: MRIndication Name: routineProtocol Name: | | CMR W Flows WO ContrastFindings--------Non-cardiac findings were reviewed by | | Fusmoon.This exam was terminated prematurely and is lmiited to line assembler images.There are | | bilateral pleural effusions. [...] Formula) | |Image Quality: Good | |Scanner Equalizing Saw Operator: [employer] | |Scanner Model: Nubity | |Scanner Serial Number: [id number] | |Scanner Software Platform: 5.3.15.3.1.0 | |Staff: Rodríguez Fortune | |Modality: MR | |Indication Name: routine | |Protocol Name: CMR W Flows WO Contrast | |Findings | |-------- | |Non-cardiac findings were reviewed by Dr. Curtis. | |This exam was terminated prematurely and is lmiited to line assembler images. | |There are bilateral pleural effusions. [...] | + + + | Sputum | [facility] [address] [place], [place] | | | [address] | + + + + + | Narrative | + + | Culture Report: This culture has been discontinued. Gram Stain: Squamous | | epithelial cells in the specimen indicate the presence of significant oropharyngeal | | contamination. CRITICAL RESULTS Results called to and verified by: Vicki | | Amy at phone # [facility] on: 10/12/2017 8:10:02 AM PST by: [id number] | + + HEMOGLOBIN A1C, BLOOD (10/11/2017 [...] | + + + | Blood | [facility] + COAG [address] | | | [place] [address] | + + + + + | Narrative | + + | Alternate forms of testing such as fructosamine should be considered for | | monitoring group home glycemic control in patients with: Increased [...] should be considered for | | monitoring commissioner of conciliation glycemic control in patients with: Increased red [...] Laboratory | + + + | | [facility] [address] [place] [address] | | | [place] [address] | + + + + + | Narrative | + + | [facility] Adult Echocardiography Laboratory | | [address] [place], [place] [address] Ph: | | Pt Name: RON MCKOEN Study | | Date/Time 10/11/2017 / 11:47:35 AM | | Most recent prior: 03/30/2017 Acc #: [id number] No. previous | | echos: 4 : 1955 61 years Heart Rate: 84 bpm | | Height: 69.0 in Blood Pressure: 115/68 mm/Hg | | Weight: 196.0 lb Gender: M | | BSA: 2.05 m2 Order ID: [id number] | | Globe Changer: Shahab Sutton [facility] Referring Provider: Kimmy Low Patient | | [...] use disorder who presents on transfer from [place] for consideration of | | complex PCI [...] | Wall Scoring: Report electronically signed by: [id number] Khurram Bedoya MD | | (10/11/2017, 12:59:49 PM) Final (Updated) | + + + + | Procedure Note | + + | Interface, Ecg Results - 10/11/2017 1:00 PM [facility] | | [facility] Echocardiography Laboratory [address] [place] [address] | | [place], [place] [address] Pt Name: RON Chaudhary | | MIKE Study Date/Time 10/11/2017 / 11:47:35 AMMRN: [id number] Most | | recent prior: 03/30/2017Acc #: [id number] No. previous echos: 4DOB: | | 1955 61 years Heart Rate: 84 bpmHeight: 69.0 in Blood | | Pressure: 115/68 mm/HgWeight: 196.0 lb Gender: MBSA: | | 2.05 m2 Order ID: [id number] Globe Changer: Shahab Sutton RDCSReferring | | Provider: Kimmy [...] use disorder who presents on transfer from [place] | | for consideration of complex PCI [...] Ao (prox) | | 3.70 cm 18.1 mm/f7Ourildqyyg of chamber size and geometry is accomplished | | through the incorporation of linear, volumetric, and indexed values Wall Scoring: Report | | electronically signed by: [id number] Khurram Bedoya MD (10/11/2017, 12:59:49 PM) | [...] | | | |Report electronically signed by: [id number] Khurram Bedoya MD (10/11/2017, 12:59:49 | |PM) [...] | + + + | Blood | [facility], CORE [address] | | | [place] [address] | + + + + + | [...] | >60 | >60 mL/min | | [place] | | | + +---------+ + | EGFR NON | >60 | >60 mL/min | | -[place] | | | + +---------+ + | [...] | + + + | Blood | [facility], CORE [address] | | | [place] [address] | + + + + + | [...] | + + + | Blood | [facility], CORE [address] [facility] | | | [place] [address] | + + + + + | [...]
--- OUTSIDE RECORDS SUMMARY | ~2017-12-16 | XMS | Encounter Summary ---
Demographics + + + | Address | [address] | | | [place] [address] | + + + | Home Phone | | + + + | Preferred Language | Unknown | + + + | Marital Status | | + + + | Taoism Affiliation | Unknown | + + + | Race | Unknown | + + + | Ethnic Group | Unknown | + + + Author + + + | Author | [facility] | | | and [place] | + + + | Organization | [facility] | | | and [place] | + + + | Address | Unknown | + + + | Phone | Unavailable | + + + Support + + + + + | Name | Relationship | Address | Phone | + + + + + | Venice Hood | ECON | [address] | | | | | [address] | | | | | [address] | | + + + + + Care Team Providers + +------+ + | Care Library Services Coordinator Name | Role | Phone | + [...] | | | | | | | [place] | | | | | | | [...] + + | 10/03/ | Hospital | [facility] | Herman Masterson MD | NSTEMI (non-ST | | 2018 - | Encounter | [facility] | [address] | elevated myocardial | | | | [address] [place] | [place], [place] | infarction) (HCC); | | 10/10/ | | [place] [address] | [id number] | Ischemic | | 2018 | | [phone] | | cardiomyopathy; | | | | | Destinee Trejo MD | Community acquired | | | | | [address] | pneumonia, | | | | | [place], [place] | unspecified | | | | | [address] [place], | laterality; Acute | | | | | MD [address] | upper GI bleed; | | | | | [address] [place] | Coronary artery | | | | | [place] [address] | disease involving | | | | | | enterprise coronary | | | | | | artery of enterprise | | | | | | heart [...] from the original. DISCHARGE SUMMARY Pt. Name/Age/: Bob Hood 61 y.o. 1955 Date of Admission: [...] of known severe ischemic CAD/recent ant wall VT in 03/2017 c/b card iogenic shock s/p ECMO in [facility] 4. Paroxysmal atrial flutter Patient Active Problem List Diagnosis Acute anterior wall VT CAD (coronary 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) Ischemic cardiomyopathy Pulmonary [...] history of CAD with recent anterior wall VT, post PTCA and st ents of the left main, LAD and LCx on 03/15/17 + left atrial appendage thrombus c/b cardiac sh ock/respiratory failure requiring Tx to [facility]; was on ECMO, who was a transfer this time from [facility] on 10/03 for acute respiratory failure requiring intubation after prese nting with progressively worsening shortness of breath. Hospital Course, including Complications: He was found to have NSTEMI with new LBBB and elevated tropinin and Septic shock thought t o be from pneumonia/influenza; started on ceftriaxone, azithromycin and tamiflu. He underwen t [facility] on 10/03- severe in-stent stenosis of left [...] Mobley discussed with Luz Maria haynes at [facility] but patient refused to go to [place] for re-vascu larization. He preferred to go to [facility]. Dr. Mobley discussed with Dr. Bedoya at [facility] and he was accepted by him. 1. [...] of known severe ischemic CAD/recent ant wall VT in 03/2017 c/b card iogenic shock s/p ECMO in [facility] - troponin peaked to 26 - [facility] on 10/03- severe in-stent stenosis of left [...] - Dr. Mobley discussed with Cardiology at [facility] and was accepted at [facility] for re-vascularization but patient refused and wanted to be transferred to [facility]. Dr. Mobley discussed with cardiology at [facility] and was accepted by them. - 4. [...] results on DC: None Disposition: Transfer to [facility] cardiology service Dr. Bedoya accepting physician Discharge Procedure Orders Transfer patient to other facility Order Comments: [facility] when bed is available. Code Status/Advance Directive (Pertinent discussions/declarations): Full Code Time spent on Discharge and Coordination of post-hospital care: >30 minutes Electronically signed by: Destinee Trejo, 10/10/2017 15:01 [facility] in this encounter Medications at Time of [...] Rhea Oneal RN - 10/10/2017 1555 PSTCalled MSMENDY, RN informed that Lotus Guillermina to call back this RN, phone number given. Electronically signed by: Rhea Ventura RN 10/10/2017 15:58 Rhea Oneal RN - 10/10/2017 1359 PSTPatient called RN to bedside, patient to g o to [facility], wants to get better and do the [...] The patient will be transferred today to [facility] for coronary revascularization. MEDICATIONS: Current Facility-Administered Medications [...] on amiodarone PLAN OR RECOMMENDATIONS: Transfer to [facility] audiology service Dr. Segura accepting physician I appreciate the opportunity of participating in the care of this patient. Delmer Mobley MD, 10/09/2017 15:00 Destinee Trejo MD - 10/09/2017 0816 PSTFormatting of this note may be different from the original. [facility] Hospitalist Progress Note Bob Hood is a 61 y.o. male INTERVAL HPI: He is a 61 y.o. male with a history of CAD with recent anterior wall VT, post PTCA and sten ts of the left main, LAD and LCx on 03/15/17 + left atrial appendage thrombus c/b cardiac shoc k/respiratory failure requiring Tx to [facility]; was on ECMO, who was a transfer this time from [facility] on 10/03 for acute respiratory failure requiring [...] of known severe ischemic CAD/recent ant wall VT in 03/2017 c/b card iogenic shock s/p ECMO in [facility] - troponin peaked to 26 - [facility] on 10/03- severe in-stent stenosis of left [...] Mobley will consult with cardiology team at [facility] Re: planning for revascularization today 4. Paroxysmal [...] as outlined above. Destinee Trejo 10/09/2017 8:16 [facility] [facility] Destinee Trejo MD - 10/08/2017 1220 PSTFormatting of this note may be different from the original. [facility] Hospitalist Progress Note Bob Hood is a 61 y.o. male INTERVAL HPI: He is a 61 y.o. male with a history of CAD with recent anterior wall VT, post PTCA and sten ts of the left main, LAD and LCx on 03/15/17 + left atrial appendage thrombus c/b cardiac shoc k/respiratory failure requiring Tx to [facility]; was on ECMO, who was a transfer this time from [facility] on 10/03 for acute respiratory failure requiring [...] % on high-flow nasal ca nnula, heated, line tester system at flow rate 14L/min Temp Min: [...] of known severe ischemic CAD/recent ant wall VT in 03/2017 c/b card iogenic shock s/p ECMO in [facility] - troponin peaked to 26 - [facility] on 10/03- severe in-stent stenosis of left [...] Mobley will consult with cardiology team at [facility] Re: planning for revascularization today 4. Paroxysmal [...] as outlined above. Destinee Trejo 10/08/2017 12:20 [facility] Destinee Trejo MD - 10/07/2017 4372 PSTFormatting of this note may be different from the original. [facility] Hospitalist Progress Note Bob Hood is a 61 y.o. male INTERVAL HPI: He is a 61 y.o. male with a history of CAD with recent anterior wall VT, post PTCA and sten ts of the left main, LAD and LCx on 03/15/17 + left atrial appendage thrombus c/b cardiac shoc k/respiratory failure requiring Tx to [facility]; was on ECMO, who was a transfer this time from [facility] on 10/03 for acute respiratory failure requiring [...] of known severe ischemic CAD/recent ant wall VT in 03/2017 c/b card iogenic shock s/p ECMO in [facility] - troponin peaked to 26 - C [...] Mobley will consult with cardiology team at [facility] Re: planning for revascularization 4. Paroxysmal atrial [...] as outlined above. Destinee Trejo 10/07/2017 14:38 [facility] [place] [facility] Delmer Mobley MD - 10/07/2017 1207 [...] by: Jai De La Rosa MD Electronically dvae d: 10/05/2017 8:44 PM Xr Chest Ap [...] RECOMMENDATIONS: Continue current medical management We'll contact [facility] regarding transfer and revascularization plann ing I [...] orally BID Carlos Graham PharmD 10/07/2017 9:59 [facility] IV TO PO Collaborative Practice Protocol Delmer [...] 5 mL 5 mL Infiltration Once PRN Delmre Dai MD metoprolol tartrate (LOPRESSOR) tablet 25 [...] No pleural effusion or pneumothorax. Heart/mediastinum: Cardiac carols houette is of normal size. No mediastinal [...] troponin Will consult with cardiology team at [facility] regarding planning for coronary revascularization prior to discharge home I appreciate the opportunity of participating in the care of this patient. Delmer Mobley MD, 10/06/2017 17:17 Destinee Trejo MD - 10/06/2017 1245 PSTFormatting of this note may be different from the original. [facility] Hospitalist Progress Note Bob Hood is a 61 y.o. male INTERVAL HPI: He is a 61 y.o. male with a history of CAD with recent anterior wall VT, post PTCA and sten ts of the left main, LAD and LCx on 03/15/17 + left atrial appendage thrombus c/b cardiac shoc k/respiratory failure requiring Tx to [facility]; was on ECMO, who was a transfer this time from [facility] on 10/03 for acute respiratory failure requiring [...] 95 % on high-flow nasal can nula, line tester system, heated at flow rate 14L/min Temp [...] now present Confirmed by FLORY العلي MD ([id number]) on 10/06/2017 7:17:27 AM POC Glucose Result [...] of known severe ischemic CAD/recent ant wall VT in 03/2017 c/b card iogenic shock s/p ECMO in [facility] - troponin peaked to 26 - [facility] [...] as outlined above. Destinee Trejo 10/06/2017 12:45 [facility] [place] [facility] Clinton Burnett MD - 10/05/2017 4779 PSTHospitalist follow-up At approximately 4 PM, there'll [...] ASPIRATION. Dictated and Signed by: Jai De LaR osa MD Electronically signed: 10/05/2017 8:4 6 PM [...] anti platelet therapyClinton Burnett MD - 10/05/2017 0936 PSTFormatting of this note may be different from the original. [facility] Hospitalist Progress Note Bob Hood is [...] as outlined above. Clinton Burnett 10/05/2017 9:39 [facility] [facility] Portions of this chart may have been created with [employer] voice recognition software. Occasi onal wrong-word or sound-alike substitutions may have occurred due to the inherent canseco itations of voice recognition software. Please read the chart carefully and recognize, using context, where these substitutions have occurred Clinton Burnett MD - 10/04/2017 1241 PSTFormatting of this note may be different from the o riginal. [facility] Hospitalist Progress Note Bob Hood is [...] as outlined above. Clinton Burnett 10/04/2017 12:42 [facility] Portions of this chart may have been created with [employer] voice recognition software. Occasi onal wrong-word or [...] :consider ischemia/infarction Confirmed by ZOHRA BREWER, FLORY ([id number]) on 10/04/2017 10:35:54 AM Influenza A PCR [...] 10/03/2017 5.0 5.0 - 8.0 Final Specific [place] 10/03/2017 1.006 1.001 - 1.030 Final PROTEIN [...] due to: Intubated X Pharmacy list names: 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, | | | | | | [place] [address] | | | | | | [phone] | | | | | | | | +--------+ + + + + | 12/31/ | Office | Cardiac | Randy Figueroa, | | | 2017 | Visit | Rehabilitation | MD [address] | | | | | | [place], | | | | | | [place] [address] | | | | | | [phone] | | | | | | | | +--------+ + + + + | 01/07/ | Office | Cardiac | Randy Figueroa, | | | 2017 | Visit | Rehabilitation | MD [address] | | | | | | [place], | | | | | | [place] [address] | | | | | | [phone] | | | | | | | | +--------+ + + + + | 01/13/ | Clinical | Cardiology | | | | 2018 | Support | | | | +--------+ + + + + | 01/13/ | Office | Cardiology | Jenny, | | | 2017 | Visit | | [address] | | | | | | [address] [place], | | | | | | [place] [address] | | | | | | [phone] | | | | | | | | +--------+ + + + + | 01/14/ | Office | Cardiac | Randy Figueroa, | | | 2017 | Visit | Rehabilitation | MD Javid [address] | | | | | | [place], | | | | | | [place] [address] | | | | | | [phone] | | | | | | | | +--------+ + + + + | 01/21/ | Office | Cardiac | Randy Figueroa, | | | 2017 | Visit | Rehabilitation | MD [address] | | | | | | [place], | | | | | | [place] [address] | | | | | | [phone] | | | | | | | | +--------+ + + + + | 01/28/ | Office | Cardiac | Randy Figueroa, | | | 2017 | Visit | Rehabilitation | [address] | | | | | | [place], | | | | | | [place] [address] | | | | | | [phone] | | | | | | | | +--------+ + + + + | 02/04/ | Office | Cardiac | Randy Figueroa, | | | 2017 | Visit | Rehabilitation | MD [address] | | | | | | [place], | | | | | | [place] [address] | | | | | | [phone] | | | | | | | | +--------+ + + + + | 02/11/ | Office | Cardiac | Randy Figueroa, | | | 2017 | Visit | Rehabilitation | MD [address] | | | | | | [place], | | | | | | [place] [address] | | | | | | [phone] | | | | | | | | +--------+ + + + + | 02/18/ | Office | Cardiac | Randy Figueroa, | | | 2017 | Visit | Rehabilitation | MD [address] | | | | | | [place], | | | | | | [place] [address] | | | | | | [phone] | | | | | | | | +--------+ + + + + | 02/24/ | Procedure | Physical Medicine | Prosper Esteves | | | 2017 | visit | and Rehabilitation | Maame, [address] | | | | | | [place] | | | | | | [address] | | | | | | | | +--------+ + + + + | 02/25/ | Office | Cardiac | Randy Figueroa, | | | 2017 | Visit | Rehabilitation | MD [address]av[address] | | | | | | [place], | | | | | | [place] [address] | | | | | | [phone] | | | | | | | | +--------+ + + + + | 03/04/ | Office | Cardiac | Randy Figueroa, | | | 2017 | Visit | Rehabilitation | MD [address] | | | | | | [place], | | | | | | [place] [address] | | | | | | [phone] | | | | | | | | +--------+ + + + + | 03/11/ | Office | Cardiac | Randy Figueroa, | | | 2017 | Visit | Rehabilitation | MD [address] | | | | | | [place], | | | | | | [place] [address] | | | | | | [phone] | | | | | | | [...] | + + + | Blood | [facility] [address] | | | [place] [address] | + + + POC Glucose (10/10/2017635) + +-------+ + | Component | Value | Ref Range | + +-------+ + | Glucose, POC | 108 | 70 - 109 mg/dL | + +-------+ + + + + | Specimen | Performing Laboratory | + + + | Blood | [facility] [address] | | | [place] [address] | + + + POC Glucose (10/09/20172041) + +---------+ + | Component | Value | Ref Range | + +---------+ + | Glucose, POC | 125 (H) | 70 - 109 mg/dL | + +---------+ + + + + | Specimen | Performing Laboratory | + + + | Blood | [facility] [address] | | | [place] [address] | + + + POC Glucose (10/09/2017 1659) + +-------+ + | Component | Value | Ref Range | + +-------+ + | Glucose, POC | 97 | 70 - 109 mg/dL | + +-------+ + + + + | Specimen | Performing Laboratory | + + + | Blood | [facility] [address] | | | [place] [address] | + + + POC Glucose (10/09/20175) + +---------+ + | Component | Value | Ref Range | + +---------+ + | Glucose, POC | 148 (H) | 70 - 109 mg/dL | + +---------+ + + + + | Specimen | Performing Laboratory | + + + | Blood | [facility] [address] | | | [place] [address] | + + + POC Glucose (10/09/201738) + +-------+ + | Component | Value | Ref Range | + +-------+ + | Glucose, POC | 109 | 70 - 109 mg/dL | + +-------+ + + + + | Specimen | Performing Laboratory | + + + | Blood | [facility] [address] | | | [place] [address] | + + + Extra Lavender Top Tube (10/09/2017 0505) + +-------+ + | Component | Value | Ref Range | + +-------+ + | Extra Lavender Top | Done | | | Tube | | | + +-------+ + + + + | Specimen | Performing Laboratory | + + + | Blood | [facility] [address] | | | [place] [address] | + + + Basic Metabolic Panel [...] GLOMERULAR FILTRATION | >=60 mL/min/1.73m2 | | SERBIAN | RATE,ESTIMATED mL/min/1.40q6Slrr than | | | | 60 Chronic [...] | + + + | Blood | [facility] [address] | | | [place] [address] | + + + POC Glucose (10/08/20172110) + +---------+ + | Component | Value | Ref Range | + +---------+ + | Glucose, POC | 120 (H) | 70 - 109 mg/dL | + +---------+ + + + + | Specimen | Performing Laboratory | + + + | Blood | [facility] [address] | | | [place] [address] | + + + POC Glucose (10/08/20171656) + +-------+ + | Component | Value | Ref Range | + +-------+ + | Glucose, POC | 96 | 70 - 109 mg/dL | + +-------+ + + + + | Specimen | Performing Laboratory | + + + | Blood | [facility] [address] | | | [place] [address] | + + + POC Glucose (10/08/2017 111) + +---------+ + | Component | Value | Ref Range | + +---------+ + | Glucose, POC | 146 (H) | 70 - 109 mg/dL | + +---------+ + + + + | Specimen | Performing Laboratory | + + + | Blood | [facility] [address] | | | [place] [address] | + + + POC Glucose (10/08/2017627) + +-------+ + | Component | Value | Ref Range | + +-------+ + | Glucose, POC | 99 | 70 - 109 mg/dL | + +-------+ + + + + | Specimen | Performing Laboratory | + + + | Blood | [facility] [address] | | | [place] [address] | + + + POC Glucose (10/07/20172036) + +---------+ + | Component | Value | Ref Range | + +---------+ + | Glucose, POC | 115 (H) | 70 - 109 mg/dL | + +---------+ + + + + | Specimen | Performing Laboratory | + + + | Blood | [facility] [address] | | | [place] [address] | + + + POC Glucose (10/07/2017 1627) + +---------+ + | Component | Value | Ref Range | + +---------+ + | Glucose, POC | 110 (H) | 70 - 109 mg/dL | + +---------+ + + + + | Specimen | Performing Laboratory | + + + | Blood | [facility] [address] | | | [place] [address] | + + + POC Glucose (10/07/2017 1147) + +---------+ + | Component | Value | Ref Range | + +---------+ + | Glucose, POC | 114 (H) | 70 - 109 mg/dL | + +---------+ + + + + | Specimen | Performing Laboratory | + + + | Blood | [facility] [address] | | | [place] [address] | + + + POC Glucose (10/07/2017737) + +-------+ + | Component | Value | Ref Range | + +-------+ + | Glucose, POC | 104 | 70 - 109 mg/dL | + +-------+ + + + + | Specimen | Performing Laboratory | + + + | Blood | [facility] [address] | | | [place] [address] | + + + Magnesium (10/07/2017350) + +-------+ + | Component | Value | Ref Range | + +-------+ + | MG | 1.9 | 1.8 - 2.5 mg/dL | + +-------+ + + + + | Specimen | Performing Laboratory | + + + | Blood | [facility] [address] | | | [place] [address] | + + + Basic Metabolic Panel [...] GLOMERULAR FILTRATION | >=60 mL/min/1.73m2 | | SERBIAN | RATE,ESTIMATED mL/min/1.44r4Gbjr than | | | | 60 Chronic [...] | + + + | Blood | [facility] [address] | | | [place] [address] | + + + CBC with Differential [...] | + + + | Blood | [facility] [address] | | | [place] [address] | + + + POC Blood Gases [...] Laboratory | + + + | | [facility] [address] | | | [place] [address] | + + + XR Chest AP [...] | Procedure Note | + + | Sebastina, Rad Results In - 10/07/2017 0915 PST [...] | + + + | Blood | [facility] [address] | | | [place] [address] | + + + POC Glucose (10/06/20172040) + +-------+ + | Component | Value | Ref Range | + +-------+ + | Glucose, POC | 101 | 70 - 109 mg/dL | + +-------+ + + + + | Specimen | Performing Laboratory | + + + | Blood | [facility] [address] | | | [place] [address] | + + + Troponin I (10/06/2017 [...] | | | | Yuki Alan. [employer] | | | | Cardiology [...] | + + + | Blood | [facility] [address] | | | [place] [address] | + + + POC Glucose (10/06/2017 1632) + +---------+ + | Component | Value | Ref Range | + +---------+ + | Glucose, POC | 130 (H) | 70 - 109 mg/dL | + +---------+ + + + + | Specimen | Performing Laboratory | + + + | Blood | [facility] [address] | | | [place] [address] | + + + POC Glucose (10/06/20171127) + +---------+ + | Component | Value | Ref Range | + +---------+ + | Glucose, POC | 120 (H) | 70 - 109 mg/dL | + +---------+ + + + + | Specimen | Performing Laboratory | + + + | Blood | [facility] [address] | | | [place] [address] | + + + POC Glucose (10/06/2017 0832) + +---------+ + | Component | Value | Ref Range | + +---------+ + | Glucose, POC | 110 (H) | 70 - 109 mg/dL | + +---------+ + + + + | Specimen | Performing Laboratory | + + + | Blood | [facility] [address] | | | [place] [address] | + + + XR Chest AP [...] + + + | Blood | [facility] [address] | | | [place] [address] | + + + Basic Metabolic Panel [...] GLOMERULAR FILTRATION | >=60 mL/min/1.73m2 | | SERBIAN | RATE,ESTIMATED mL/min/1.58b7Xiea than | | | | 60 Chronic [...] + + + | Blood | [facility] [address] | | | [place] [address] | + + + CBC with Differential [...] | + + + | Blood | [facility] [address] | | | [place] [address] | + + + POC Glucose (10/05/20172037) + +---------+ + | Component | Value | Ref Range | + +---------+ + | Glucose, POC | 126 (H) | 70 - 109 mg/dL | + +---------+ + + + + | Specimen | Performing Laboratory | + + + | Blood | [facility] [address] | | | [place] [address] | + + + ECG 12 lead [...] | | | | FLORY العلي MD ([id number]) on 10/06/2017 | | | | 7:17:27 [...] | | | Dictated and Signed by: aJi De La Rosa MD | | Electronically [...] FLORY العلي MD | | | | ([id number]) on 10/07/2017 7:10:25 AM | | + [...] | + + + | | [facility] [address] | | | [place] [address] | + + + EGD (10/05/2017 1056) + + + | Specimen | Performing Laboratory | + + + | | [facility] | + + + + + | Narrative | + + | Gastroenterology Patient Name: Bob Hood Procedure Date: 10/05/2017 10:56 AM | | Date of : 1955 Admit Type: | | Inpatient Age: 61 Room: [place] [address] Gender: Male Note Status: Finalized Attending MD: | | Terry Weir MD Procedure: Upper GI endoscopy | | Indications: Suspected upper gastrointestinal bleeding | | Providers: Terry Weir MD, Gil Tam RN, Elizabeth Patel | | ALFONSO Rivers, Siddharth Bradley CMA, Venice Campbell | | Babita, Ballpoint Pen Cartridge Tester, Yong Napier MD (Anesthesia | | Staff) [...] nurse, the anesthesiologist and the | | therapeutic massage technician in the procedure room. Mental Status [...] In: 11:00:34 AM Scope Out: 11:11:30 AM [facility] | | [facility], [address] [place] [address] | + + XR Chest AP Portable [...] + + | Body Fluid | [facility]resp[facility] | | | [place] [address] | + + + Procalcitonin (10/05/2017 0427) [...] | + + + | Blood | [facility]resp[facility] | | | [place] [address] | + + + Basic Metabolic Panel [...] GLOMERULAR FILTRATION | >=60 mL/min/1.73m2 | | SERBIAN | RATE,ESTIMATED mL/min/1.53g3Koid than | | | | 60 Chronic [...] + + + | Blood | [facility]resp[facility] | | | [place] [address] | + + + CBC with Differential [...] | + + + | Blood | [facility] | | | [place] [address] | + + + POC Glucose (10/04/20172111) + +-------+ + | Component | Value | Ref Range | + +-------+ + | Glucose, POC | 108 | 70 - 109 mg/dL | + +-------+ + + + + | Specimen | Performing Laboratory | + + + | Blood | [facility] | | | [place] [address] | + + + XR Chest AP [...] + + + | Blood | [facility] Cresp[facility] | | | [place] [address] | + + + ECG 12 lead [...] | | | | FLORY العلي MD ([id number]) on 10/05/2017 | | | | 7:23:04 [...] | + + + | Blood | [facility] [address] | | | [place] [address] | + + + Extra Lavender Top Tube (10/04/2017 1443) + +-------+ + | Component | Value | Ref Range | + +-------+ + | Extra Lavender Top | Done | | | Tube | | | + +-------+ + + + + | Specimen | Performing Laboratory | + + + | Blood | [facility] [address] | | | [place] [address] | + + + Troponin I (10/04/2017 [...] | | | | previous results. [employer] | | | | Cardiology [...] | + + + | Blood | [facility] Crespo | | | [place] [address] | + + + Blood Gas, Arterial [...] | + + + | Blood | [facility] | | | [place] [address] | + + + + + | Narrative | + + | SIMV 16 TV 550, PS+ 10, PEEP +5, 40%, ETCO2 35 NLJ994% | + + POC Glucose (10/04/2017 1223) + +-------+ + | Component | Value | Ref Range | + +-------+ + | Glucose, POC | 106 | 70 - 109 mg/dL | + +-------+ + + + + | Specimen | Performing Laboratory | + + + | Blood | [facility]resp[facility] | | | [place] [address] | + + + CBC with Differential [...] | + + + | Blood | [facility]av[facility] Crespo | | | [place] [address] | + + + Magnesium (10/04/2017 0343) + +-------+ + | Component | Value | Ref Range | + +-------+ + | MG | 1.9 | 1.8 - 2.5 mg/dL | + +-------+ + + + + | Specimen | Performing Laboratory | + + + | Blood | [facility]av[facility] [address] [facility]resp[facility] | | | [place] [address] | + + + Basic Metabolic Panel [...] GLOMERULAR FILTRATION | >=60 mL/min/1.73m2 | | SERBIAN | RATE,ESTIMATED mL/min/1.93r5Infd than | | | | 60 Chronic [...] + + + | Blood | [facility] | | | [place] [address] | + + + Troponin I (10/03/2017 [...] | | | | previous results. [employer] | | | | Cardiology [...] | + + + | Blood | [facility]resp[facility] | | | [place] [address] | + + + POC Glucose (10/03/20172145) + +---------+ + | Component | Value | Ref Range | + +---------+ + | Glucose, POC | 115 (H) | 70 - 109 mg/dL | + +---------+ + + + + | Specimen | Performing Laboratory | + + + | Blood | [facility] | | | [place] [address] | + + + Basic Metabolic Panel [...] GLOMERULAR FILTRATION | >=60 mL/min/1.73m2 | | SERBIAN | RATE,ESTIMATED mL/min/1.63w2Uucr than | | | | 60 Chronic [...] + + + | Blood | [facility] Crespo | | | [place] [address] | + + + Procalcitonin (10/03/2017 1545) [...] | + + + | Blood | [facility] | | | [place] [address] | + + + Troponin I (10/03/2017 [...] Juan Srinivasan. 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 Sheath left in [...] Seldinger technique and a 6 | | Macedonian sheath was inserted. Selective coronary arteriography was performed using 6 | | Macedonian Kymberly right 4 and left 4 catheters. [...] instability we will transfer the patient to [facility] for consideration of | | urgent coronary revascularization. Delmer Mobley M.D., F.A.C.C. | | [employer] [place], [place] | | | + + Culture, [...] | | Blood | [place] [address] | + + + ECG 12 lead [...] ZOHRA BREWER, | | | | FLORY ([id number]) on 10/04/2017 10:35:54 AM | | | [...] + + + | Blood | [facility] Crespo | | | [place] [address] | + + + XR Chest AP [...] + | Blood - Line | [facility] Crespo | | | [place] [address] | + + + Slide Review, Peripheral [...] + + + | Blood | [facility] | | | [place] [address] | + + + + + | [...] + + + | Blood | [facility] | | | [place] [address] | + + + Troponin I (10/03/20171128) [...] | | | | myocardial infarction. [employer] | | | | of Cardiology [...] | + + + | Blood | [facility]av[facility] Ole[address] Rodriguez[facility] | | | [place] [address] | + + + B Type Natriuretic Peptide (10/03/20171128) + +---------+ + | Component | Value | Ref Range | + +---------+ + | BNP | 495 (H) | <100 pg/mL | + +---------+ + + + + | Specimen | Performing Laboratory | + + + | Blood | [facility]resp[facility] | | | [place] [address] | + + + Hepatic Function Panel [...] | + + + | Blood | [facility] Javid OlearyF[address] Rodriguezar | | | [place] [address] | + + + Protime INR (10/03/2017 [...] | + + + | Blood | [facility] | | | [place] [address] | + + + Basic Metabolic Panel [...] GLOMERULAR FILTRATION | >=60 mL/min/1.73m2 | | SERBIAN | RATE,ESTIMATED mL/min/1.17e5Gzvy than | | | | 60 Chronic [...] | + + + | Blood | [facility] [address] | | | [place] [address] | + + + CBC with Differential [...] | + + + | Blood | [facility]av[facility] Crespo | | | [place] [address] | + + + ECHO Complete (10/03/2017 1118) + +-------+ + | Component | Value | Ref Range | + +-------+ + | LVEF-TTE | 39 | | | TRANSTHORACIC ECHO | | | + +-------+ + + + | Narrative | + + | Transthoracic Echocardiography Report (TTE) Demographics Patient | | Name MIKE VELASQUEZ Room Number 458 | | J Patient [id number] Date of | | Study 10/03/2017 Number Visit Number [id number] | | Referring Physician BENEDICT RAYGOZA Number | | Date of 1955 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 | | RAJIV HURLEY Age 61 year(s) | | Interpreting DELMER MOBLEY MD, | | 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 | | FACC 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 | | Procedure Type of Study TTE [...] | Electronically signed by DELMER MOBLEY MD, [facility] WITH [facility](Interpreting physician) on | | 10/03/2017 12:59 [...] 42.65 ml | | | | EF Ejciwbuac70% Left Ventricle Diastolic Dimension: 5.92 cm Septum [...] | J | | | | Patient [id number] Date of Study 10/03/2017 | | Number | | | | Visit Number [id number] | | | | Referring Physician BENEDICT RAYGOZA | | Number | | | | Date of 1955 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 [facility] | | | | Age 61 year(s) Interpreting DELMER 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 MD, | | 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 FACC | | | | Gender Male 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 | | | | Procedure | | [...] | Electronically signed by DELMER MOBLEY MD, [facility] WITH [facility](Interpreting | | physician) on 10/03/2017 12:59 [...] LA Volume: 42.65 ml | | EF Rtxriygoh99% | | | | Left Ventricle | [...] + + + | Blood | [facility] [address] | | | [place] [address] | + + + Culture, MRSA (10/03/2017 1039) + + + + | Component | Value | Ref Range | + + + + | Culture | Negative for MRSA by chromogenic agar | | | | method | | + + + + + + + | Specimen | Performing Laboratory | + + + | Stool | [facility] | | | [place] [address] | + + + Culture, Respiratory, Lower, [...] + + | Respiratory - | [facility] | | Sputum, expectorated | [place] [address] | + + + Influenza A and [...] + + + | Respiratory - | [facility]resp[facility] | | Nasopharynx | [place] [address] | + + + Campylobacter Ag,Qual (10/03/2017 1039) + + + + | Component | Value | Ref Range | + + + + | Campylobacter AG, | Negative | Negative | | Qual | | | + + + + + + + | Specimen | Performing Laboratory | + + + | Stool | [facility] | | | [place] [address] | + + + Culture, Stool Result [...] + + + | Stool | [facility]resp[facility] | | | [place] [address] | + + + Shigatoxin 1 and [...] | + + + | Stool | [facility]resp[facility] | | | [place] [address] | + + + Culture, Stool (10/03/2017 1039) + + + | Specimen | Performing Laboratory | + + + | Stool | [facility]resp[facility] | | | [place] [address] | + + + + + | Narrative | + + | The following orders were created for panel order Culture, Stool. | | Procedure | | Abnormality Status | | --------- | | ------ Shigatoxin 1 | | and 2[[id number]] Normal Final | | result Culture, Stool | | Result[[id number]] Final | | result Campylobacter | | Ag,Qual[[id number]] Normal Final | | result Please view [...] + + + | Stool | [facility]resp[facility] | | | [place] [address] | + + + Ova and Parasite [...] Stool | [facility]FER[facility] [address] [facility] | | | [place] [address] | + + + + + | Narrative | + + | Performed at: 01 - [facility] [address] [id number] Lab | | Director: Yesenia Gee MD, Phone: [phone] | + + Fecal leukocytes (10/03/2017 1039) + + + + | Component | Value | Ref Range | + + + + | Lactoferrin, Qual | Negative | Negative | + + + + + + + | Specimen | Performing Laboratory | + + + | Stool | [facility]av[facility] Mamta[address] Cresp[address] | | | [place] [address] | + + + Urinalysis with Microscopic [...] | + + + + | Specific [place] | 1.006 | 1.001 - 1.030 | [...] + + + | Urine | [facility] | | | [place] [address] | + + + LABS - EXTERNAL [...] + + | Coronary 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 involving enterprise coronary artery of enterprise heart without angina | | pectoris | + + | Acute respiratory acidosis | + + | Acidosis | + + | CAD (coronary 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) | + + | Coronary atherosclerosis of unspecified type of vessel, enterprise or graft | + + | Pulmonary [...] | | | | First dose on [facility] 10/08/17 at 0915 | | | | [...] scheduled: AC, | | | NPO, Daytime [id number] Use NIGHT | | | DOSE for doses scheduled: | | | HS, 3AM, Nighttime [id number] | | + +---+ | | | [...]
--- OUTSIDE RECORDS SUMMARY | ~2017-12-16 | XMS | Encounter Summary ---
Demographics + + + | Address | [address] | | | [place] [address] | + + + | Home Phone | | + + + | Preferred Language | Unknown | + + + | Marital Status | | + + + | Worship Affiliation | Unknown | + + + | Race | Unknown | + + + | Ethnic Group | Unknown | + + + Author + + + | Author | [facility] | | | and [place] | + + + | Organization | [facility] | | | and [place] | + + + | Address | Unknown | + + + | Phone | Unavailable | + + + Support + + + + + | Name | Relationship | Address | Phone | + + + + + | [place] Will | ECON | [address] | | | | | #[place] | | | | | [address] | | + + + + + Care Team Providers + +------+ + | Care Anodizer Name | Role | Phone | + +------+ + | Chato Matson MD | PCP | | + +------+ + Reason for Referral Evaluate & Treat (Routine) + + + [...] | | | Services | Rehabilitatio | Ischemic | MD Randy | | | | Required | n | cardiomyopat | [address] | Rehabilitatio | | | | | hy | [address] | [address] | | | | | Procedures | [place], | [address] [place] | | | | | [place] | [place] [address] | [place], [place] | | | | | OUTPATIENT | Phone: | [phone] | | | | | CARDIAC | [phone] | Phone: | | | | | REHAB W/O | Fax: | [phone] | | | | | CONT ECG | [phone] | Fax: | | | | | MONITOR | | [phone] | + + + + + + + Reason for [...] | Cardiac | Diagnoses | [place], | [facility] | | | Services | Rehabilitatio | Ischemic | MD Randy | | | | Required | n | cardiomyopat | [address] | Rehabilitatio | | | | | hy | [address] | [address] | | | | | Procedures | [place], | [address] [place] | | | | | [place] | [place] [address] | [place], [place] | | | | | OUTPATIENT | Phone: | [phone] | | | | | CARDIAC | [phone] | Phone: | | | | | REHAB W/O | Fax: | [phone] | | | | | CONT ECG | [phone] | Fax: | | | | | MONITOR | | [phone] | + + + + + + + Encounter Details +--------+---------+ + + + | Date | Type | Department | Care Team | Description | +--------+---------+ + + + | 11/11/ | Office | [facility] | Rahullindacathy Lindarahul, | Ischemic | | 2018 | Visit | MED CTR CARDIAC | MD [address] | cardiomyopathy | | | | REHABILITATION [address] [place], | | | | | [address] [place] | [place] [address] | | | | | [place] [address] | [phone] | | | | | [phone] | | | | | | | [...] Progress Notes Maria Esther Fields RN - 11/11/2017 1200 PSTFormatting of this note may be different from the or iginal. [facility] [address] [facility] [address] Cardiac Rehab Evaluation Date: 11/11/2017 Patient Information Patient Name: Bob Will Date of : 1955 Age: 62 y.o. Referring Provider: Randy Figueroa MD Encounter Diagnoses Code Name Primary? I25.5 Ischemic cardiomyopathy Cardiac Rehab Phase II Leon atment Plan Bob Will is a 62 y.o. male with a history of coronary 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 post recent anterior wall TX, post PTCA and stents of the left main, LAD and LCx on 03/15/17, cardiac shoc k, left atrial appendage thrombus, recent status post stents to , [employer]-D placement in [facility] on 10/17/2017. 11/11/17 At his cardiology appointment this morning, his BP was 124/70 and he was feeling fin e. After 30 minutes of consultation in cardiac rehab, he started feeling sweaty and hot, and gassy. His BP was 80/40. He was not lightheaded, legs felt heavy. He was given V-8 and wate r and after 40 minutes his BP was 102/60 and he felt much better. When he was being escorted to his car, he vomited approximately 800 cc. He felt better. BP was 106/70. His was co hardeep from [place] to follow him home. He waited in the ER waiting room, in case he started feeling unwell again. This was reported to cardiology by fax. Fall Ri sk Assessment Fall Risk: 2 or more falls in the past year or concern for a fall?: Yes If yes, reason for fall risk: balance disturbance, hypotension Assistive device: Walker I nterventions Designate Fall Risk by placing [...] No Action taken: No concerns Exercise LVEF: 30% Risk stratification category: High Initial exercise/activity assessment: Date: Mode: Duration: RPE: /10 >BP too low, no exerci se 30 Day exercise assessment: Date: Mode: Duration: RPE: /10 60 Day exercise assessment: Date: Mode: Duration: RPE: /10 Discharge exercise assessment: Date: Mode: Duration: RPE: /10 Sessio n Prescription Modes: Recumbent elliptical, Ergometer Frequency: 3 X week Duration: 20 minutes Progression: Increase duration and/or intensity to maintain THR and/or RPE 3-4/10 THR: Rest +30 bpm Resistance training: Yes Precautions: High risk Cardiac, pacemaker precautions, PAD Home E xercise Modes: Walking Frequency: 5 X week Duration: 30 minutes Progression: Increase duration and/or intensity of exercise to maintain at least 30 min of cardio exercise, 5 days per week and RPE 3-4/10 with warm up and cool down. Interventio ns and Education Initial orientation to cardiac rehab as listed below, Completed Date: 11/11 - Equipment orientation -Warm up and cool [...] comprehension. Norma: Living Well with Congestive Heart Failue book Date received: 11/11/17 Ta rget Goal(s) Aerobic- moderate intensity activity 30 to 60 minutes per day for at least 5 days per week Supplementing aerobic activity with an increase in daily lifestyle activities Resistance training at least two days per week COOP score: 18/40 Progression/Pro ne toward Goals Date: 11/11/17 Notes: Taking short walks, leg pain Nutr ition and Weight Assessment: Height: 5'10 " Admission Weight: 212# 30 Day W eight: BMI: 30 60 Day Weight: Discharge Weight: Weight Goal: Lose 1-2# per week Waist Circumference: D/C Circum ference: Diet Assessment Initial Rate Your Plate Score: 43 Discharge Rate Your Plate Sco re: Special diet? No Alcohol? Inte rvention and Education Points listed below- Date Completed: 11/11/17 -Goals of BMI, Waist circumference - Encourage weight reduction and/or maintenance through physical activity/ structured exe rcise, caloric intake, and/ or behavioral management, goal setting -Heart Healthy Dietary Education Date: 11/11/17 -Referral to Supervisor [employer]: Date: -DVD: Healthy Eating For Life Date: Target Goal(s) -Patient weight has maintained or improved toward BMI <25 -Waist circumference <35 inches for women < 40 inches for men -Diet low in saturated fats, simple carbs, high in fruits, vegetables and whole grains Progression/ Progress toward Goals Date: 11/11/17 Notes: He generally restricts his sodium at home, but has been ea ting out- cheesecake, burgers and pizza > cutting portions. He was drinking a few doug per day and has put on some weight. He agrees to limit portions of take out, and he will cut col as out. Hypertension History of hypertension: yes Treatment: On medication Initial Resting BP: 80/40 Peak Exercise BP: 102/60- after so dium 30 Day Resting BP: 30 Day Exercise BP: 60 Day Resting BP: 60 Day Exercise BP: Discharge BP: Discharge Exercise BP: Inte rventions and Education Points listed below- Date Completed: 11/11/17 -Understanding blood pressure and goal blood pressure -BP medictions - Lifestyle modifications: weight control, increased physical activity, alcohol moderation, sodium reduction, emphasis on increased fruit, vegetable and low fat dairy consumption Individual cardiac risk factors reviewed Progress toward Goals: Date: Target Goal Blood pressure Goal: Progression /Progress toward Goals Date: 11/11/17 Notes: BP was 80/40, he wasn't dizzy, but legs were heavy- he was advised to check BP if legs are heavy. Dyslipidemia History of Dyslipidemia: Yes Treatment: On medication Most recent lipid panel: CHOL TRIG HDL LDL Interven tions and Education Points listed below- Date Completed: -Advocate for cholesterol medication if appropriate -Encourage [...] Triglycerides <130 Progression/P rogress toward Goals Date: 11/11/17 Notes: Agrees to limit ice cream and cheese. Agrees to exercise adelina zuniga Mellitus History of diabetes: No- but was put on glucophage Treatment: Last hemoglobin A1C: Value: 5.9 Date: 10/11/17 Interventions -Evaluate blood sugar pre- and post- exercise until stable. Date: Range: -Referral to [employer] Date: Education Points listed below- Date Completed: [...] rogress toward Goals Date: Notes: Psychosocial Depression: No Initial PHQ-9: 0 30 Day PHQ-9: 90 Day PHQ-9 Discharge PHQ-9: Support systems: Notes: Inter vention and Education Points listed below- Date Completed: -Assess presence or absence of depression using [...] support system Progression/Progress to arizmendi Goals Date: Notes: Patients stated Goals for Cardiac Rehab: He would like to be able to walk for 20 minutes wi thout resting and without leg pain. Electronically signed by: Maria Esther Fields RN, 11/11/2017 12:53 Patient Name: Bob Weaveroberts/: 1955/ this encoun ter Plan of Treatment +--------+ + + + + | Date | Type | Specialty | Care Team | Description | +--------+ + + + + | 12/17/ | Office | Cardiac | Randy Figueroa, | | | 2017 | Visit | Rehabilitation | MD [address] | | | | | | [place], | | | | | | [place] [address] | | | | | | [phone] | | | | | | | | +--------+ + + + + | 12/24/ | Office | Cardiac | Randy Figueroa, | | | 2017 | Visit | Rehabilitation | MD [address] | | | | | | [place], | | | | | | [place] [address] | | | | | | [phone] | | | | | | | | +--------+ + + + + | 12/31/ | Office | Cardiac | Randy Figueroa, | | | 2017 | Visit | Rehabilitation | MD [address] | | | | | | [place], | | | | | | [place] [address] | | | | | | [phone] | | | | | | | | +--------+ + + + + | 01/07/ | Office | Cardiac | Randy Figueroa, | | | 2017 | Visit | Rehabilitation | MD [address] | | | | | | [place], | | | | | | [place] [address] | | | | | | [phone] | | | | | | | | +--------+ + + + + | 01/13/ | Clinical | Cardiology | | | | 2017 | Support | | | | +--------+ + + + + | 01/13/ | Office | Cardiology | Jenny, | | | 2017 | Visit | | [address] | | | | | | [place], | | | | | | [place] [address] | | | | | | [phone] | | | | | | | | +--------+ + + + + | 01/14/ | Office | Cardiac | Randy Figueroa, | | | 2017 | Visit | Rehabilitation | MD [address] | | | | | | [place], | | | | | | [place] [address] | | | | | | [phone] | | | | | | | | +--------+ + + + + | 01/21/ | Office | Cardiac | Randy Figueroa, | | | 2017 | Visit | Rehabilitation | MD [address] | | | | | | [address], | | | | | | [place] [address] | | | | | | [phone] | | | | | | | | +--------+ + + + + | 01/28/ | Office | Cardiac | Randy Figueroa, | | | 2017 | Visit | Rehabilitation | MD [address] | | | | | | [place], | | | | | | [place] [address] | | | | | | [phone] | | | | | | | | +--------+ + + + + | 02/04/ | Office | Cardiac | Randy Figueroa, | | | 2017 | Visit | Rehabilitation | MD [address] | | | | | | [place], | | | | | | [place] [address] | | | | | | [phone] | | | | | | | | +--------+ + + + + | 02/11/ | Office | Cardiac | Randy Figueroa, | | | 2017 | Visit | Rehabilitation | MD [address] | | | | | | [place], | | | | | | [place] [address] | | | | | | [phone] | | | | | | | | +--------+ + + + + | 02/18/ | Office | Cardiac | Randy Figueroa, | | | 2017 | Visit | Rehabilitation | MD [address] | | | | | | [place], | | | | | | [place] [address] | | | | | | [phone] | | | | | | | | +--------+ + + + + | 02/24/ | Procedure | Physical Medicine | Prosper Esteves | | | 2017 | visit | and Rehabilitation | MD [address] | | | | | | [place] | | | | | | [address] | | | | | | | | +--------+ + + + + | 02/25/ | Office | Cardiac | Randy Figueroa, | | | 2017 | Visit | Rehabilitation | MD [address] | | | | | | [place], | | | | | | [place] [address] | | | | | | [phone] | | | | | | | | +--------+ + + + + | 03/04/ | Office | Cardiac | Randy Figueroa, | | | 2017 | Visit | Rehabilitation | MD [address] | | | | | | [place], | | | | | | [place] [address] | | | | | | [phone] | | | | | | | | +--------+ + + + + | 03/11/ | Office | Cardiac | Randy Figueroa, | | | 2017 | Visit | Rehabilitation | [address] | | | | | | [place], | | | | | | [place] [address] | | | | | | [phone] | | | | | | | | +--------+ + + + + as of this encounter Visit Diagnoses + + | Diagnosis | + + | Ischemic cardiomyopathy | + + | Other specified forms of chronic ischemic heart disease | + +
--- OUTSIDE RECORDS SUMMARY | ~2017-12-16 | XMS | Encounter Summary ---
Demographics + + + | Address | [address] | | | [place] [address] | + + + | Home Phone | | + + + | Preferred Language | Unknown | + + + | Marital Status | | + + + | Mandaeism Affiliation | Unknown | + + + | Race | Unknown | + + + | Ethnic Group | Unknown | + + + Author + + + | Author | [facility] | | | and [place] | + + + | Organization | [facility] | | | and [place] | + + + | Address | Unknown | + + + | Phone | Unavailable | + + + Support + + + + + | Name | Relationship | Address | Phone | + + + + + | [place] Will | ECON | [address] | | | | | #[place] | | | | | [address] | | + + + + + Care Team Providers + +------+ + | Care Drafter Tool Design Name | Role | Phone | + [...] | +--------+ + + + + | 11/24/ | Hospital | [facility] | [place], | Coronary artery | | 2018 | Encounter | MED CTR ULTRASOUND | [address] | disease involving | | | | [address] [place] | [address], | [place] coronary | | | | [place], [place] | [place] [address] | artery of [place] | | | | [address] | [phone] | heart without angina | | | | [phone] | | pectoris | | | | | Tiki Linn, | | | | | | Technologist [...] | | | | | (VITAMIN D-3) [id number] | a week. | | | | [...] +--------+---------+ + + | lisinopril | Take 10 mg by mouth | | | | | | (PRINIVIL, ZESTRIL) | Daily. | | | | | | 10 mg tablet | | | | | [...] + +--------+---------+ + + | metoprolol | Take 1 tablet by | 30 | 3 | 10/19/19 | | | succinate | mouth Daily. | tablet | | [...] | + + +--------+---------+ + + | nystatin | Genital region | | | 10/09/19 | | | (MYCOSTATIN) powder | | | | 18 | | + + +--------+---------+ + + | pantoprazole | Take 1 tablet by | 60 | 5 | 11/11/19 | | | (PROTONIX) 40 mg | mouth 2 times daily | tablet | | 18 | | | tablet | (before meals). | [...] | Visit | Rehabilitation | [address] | | | | | | [place], | | | | | | [place] [address] | | | | | | [phone] | | | | | | | | +--------+ + + + + | 12/24/ | Office | Cardiac | Randy Figueroa, | | | 2017 | Visit | Rehabilitation | MD [address] | | | | | | [place], | | | | | | [place] [address] | | | | | | [phone] | | | | | | | | +--------+ + + + + | 12/31/ | Office | Cardiac | Randy Figueroa, | | | 2017 | Visit | Rehabilitation | MD [address] | | | | | | [place], | | | | | | [place] [address] | | | | | | [phone] | | | | | | | | +--------+ + + + + | 01/07/ | Office | Cardiac | Randy Figueroa, | | | 2017 | Visit | Rehabilitation | MD [address] | | | | | | [place], | | | | | | [place] [address] | | | | | | [phone] | | | | | | | [...] [place], | | | | | | [place] [address] | | | | | | [phone] | | | | | | | | +--------+ + + + + | 01/14/ | Office | Cardiac | Randy Figueroa, | | | 2017 | Visit | Rehabilitation | MD [address] | | | | | | [place], | | | | | | [place] [address] | | | | | | [phone] | | | | | | | | +--------+ + + + + | 01/21/ | Office | Cardiac | Randy Figueroa, | | | 2017 | Visit | Rehabilitation | MD [address] | | | | | | [place], | | | | | | [place] [address] | | | | | | [phone] | | | | | | | | +--------+ + + + + | 01/28/ | Office | Cardiac | Randy Figueroa, | | | 2017 | Visit | Rehabilitation | MD [address] | | | | | | [place], | | | | | | [place] [address] | | | | | | [phone] | | | | | | | | +--------+ + + + + | 02/04/ | Office | Cardiac | Randy Figueroa, | | | 2017 | Visit | Rehabilitation | MD [address] | | | | | | [place], | | | | | | [place] [address] | | | | | | [phone] | | | | | | | | +--------+ + + + + | 02/11/ | Office | Cardiac | Randy Figueroa, | | | 2017 | Visit | Rehabilitation | MD [address] | | | | | | [place], | | | | | | [place] [address] | | | | | | [phone] | | | | | | | | +--------+ + + + + | 02/18/ | Office | Cardiac | Randy Figueroa, | | | 2017 | Visit | Rehabilitation | MD [address] | | | | | | [place], | | | | | | [place] [address] | | | | | | [phone] | | | | | | | | +--------+ + + + + | 02/24/ | Procedure | Physical Medicine | Prosper Esteves | | | 2017 | visit | and Rehabilitation | MD [address] | | | | | | [place] | | | | | | [address] | | | | | | | | +--------+ + + + + | 02/25/ | Office | Cardiac | Randy Figueroa, | | | 2017 | Visit | Rehabilitation | MD [address] | | | | | | [place], | | | | | | [place] [address] | | | | | | [phone] | | | | | | | | +--------+ + + + + | 03/04/ | Office | Cardiac | Randy Figueroa, | | | 2017 | Visit | Rehabilitation | MD [address] | | | | | | [place], | | | | | | [place] [address] | | | | | | [phone] | | | | | | | | +--------+ + + + + | 03/11/ | Office | Cardiac | Randy Figueroa, | | | 2017 | Visit | Rehabilitation | MD [address] | | | | | | [place], | | | | | | [place] [address] | | | | | | [phone] | | | | | | | | +--------+ + + + + as of this encounter Results VAS Segmental Pressures Legs (11/24/2017 1555) + + | Narrative | + + | VAS SEGMENTAL PRESSURES LEGS 11/24/2017 2:32 PM HISTORY: PAD. COMPARISON: | | None. PROTOCOL: Blood pressure measurements of the upper extremities and lower | | extremities were obtained with Doppler probe and sphygmomanometer. FINDINGS: | | Right: (mmHg) Brachial: 96 Dorsalis pedis: 110 Posterior tibial: 106 A/B ratio: 1.05 | | Left: (mmHg, index) Brachial: 105 Dorsalis pedis: 86 Posterior tibial: 98 A/B | | ratio: 0.91 IMPRESSION - Abnormal left ankle brachial index of 0.91 consistent with | | single segment disease. Reference: Greater than or equal to 0.95: Normal 0.5 | | through 0.95: Single segment disease Less than 0.5: Multi segment disease Dictated | | and Signed by: Alin Ramírez MD Electronically signed: 11/24/2017 9:48 PM | + + + + | Procedure Note | + + | Clayton Cortes Results In - 11/24/2017 2151 PDT VAS SEGMENTAL PRESSURES LEGS 11/24/2017 2:32 | | PM HISTORY: PAD.COMPARISON: None.PROTOCOL: Blood pressure measurements [...] signed: 11/24/2017 9:48 PM | + + in this encounter Visit Diagnoses + + | Diagnosis | + + | Coronary 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 involving [place] coronary artery of [place] heart without angina | | pectoris | + +"
--- OUTSIDE RECORDS SUMMARY | ~2017-12-16 | XMS | Encounter Summary ---
Demographics + + + | Address | [address] | | | [place] [address] | + + + | Home Phone | | + + + | Preferred Language | Unknown | + + + | Marital Status | | + + + | Islam Affiliation | Unknown | + + + | Race | Unknown | + + + | Ethnic Group | Unknown | + + + Author + + + | Author | [facility] | | | and [place] | + + + | Organization | [facility] | | | and [place] | + + + | Address | Unknown | + + + | Phone | Unavailable | + + + Support + + + + + | Name | Relationship | Address | Phone | + + + + + | [place] Will | ECON | [address] | | | | | [address] | | | | | [address] | | + + + + + Care Team Providers + +------+ + | Care Automotive Maintenance Technician Name | Role | Phone | [...] Echo | | | | | | [place], | [address] | | | | | 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[place], | | | | | r ICD | [address] | [place] | | | | | (implantable | [place] | [address] | | | | | | [place], | Phone: | | | | | cardioverter | [place] | [phone] | | | | | -defibrillat | [phone] | Fax: | | | | | or) in place | Phone: | [phone] | | | | | Ischemic | [phone] | | | | | | cardiomyopat | Fax: | | | | | | hy | [phone] | | | | | | Procedures | | | | | | | ECHO | | | | | | | Complete [place] | | | | | | | ECHO HEART | | | | | | | XTHORACIC,CO | | | | | | | MPLETE W | | | | | | | DOPPLER [place] | | | | | | | ECHO HEART | | | | | | | XTHORACIC,CO | | | | | | | MPLETE, W/O | | | | | | | DOPPLER | | | | | | | 11/11> TBS> | | | | | | | WHO ARE WE | | | | | | | BILLING | | | +--------+--------+ + + + + Reason for Visit + + + | Reason | Comments | + + + | Follow-up | | + + + | Carotid Artery | | | Disease | | + + + | Tachycardia | | + + + | Atrial Flutter | | + + + Encounter Details +--------+---------+ + + + | Date | Type | Department | Care Team | Description | +--------+---------+ + + + | 11/11/ | Office | [facility] [place] | Jenny, | PURCHASING DEPARTMENT CLERK-D (AICD) | | 2018 | Visit | CARDIOLOGY [address] | ADARSH Santo [address] | [employer] 10/16/17 | | | | [place], | [place], | [place] | | | | [place] [address] | [place] [address] | (Primary Dx); | | | | [phone] | [phone] | Tachycardia; | | | | | | Ischemic | | | | | | cardiomyopathy; | | | | | | Coronary artery | | | | | | disease involving | | | | | | osage coronary | | | | | | artery of osage | | | | | | heart without angina | | | | | | pectoris; Acute | | | | | | anterior wall LA | | | | | | ([facility]); H/O atrial | | | | | | flutter; Implantable | | | | | | [...] + + + | Blood Pressure | 124/70 | 11/11/2017899 PST | + + + + | Pulse | 64 | 11/11/2017899 PST | + + + + | Temperature | - | - | + + + + | Respiratory Rate | 12 | 11/11/2017899 PST | + + + + | Oxygen Saturation | - | - | + + + + | Inhaled Oxygen | - | - | | Concentration | | | + + + + | Weight | 96.6 kg (212 lb 15.4 | 11/11/2017899 PST | | | oz) | | + + + + | Height | 177.8 cm (5' 10") | 11/11/2017899 PST | + + + + | Body Mass Index | 30.56 | 11/11/2017 0900 PST | + + + + in this encounter Progress Notes Kelly Rodriguez RN - 11/11/2017 1000 PSTFormatting of this note may be different from the or iginal. PATIENT NAME: Bob Will : 1955: AGE: 62 y.o. ICD Evaluation Report November 11, 2017 Reason for evaluation: routine Indication for ICD: ICD-10-CM ICD-9-CM 1. Implantable defibrillator reprogramming/check Z45.02 V53.32 Device Interrogation CANCELED: Device Interrogation - Remote 2. PURCHASING DEPARTMENT CLERK-D (AICD) [employer] 10/16/17 [facility] Stecker Z95.810 V45.02 Device Interrogation CANCELED: Device Interrogation - Remote 3. Ischemic cardiomyopathy I25.5 414.8 Device Interrogation CANCELED: Device Interrogation - Remote Patient was seated and reclined and device [...] Kelly Rodriguez RN Underlying rhythm: sinus rhythm 67-71 beats. 0 mode switch episodes accounting for 0% of the time. 0 atrial high rate episodes. 1 ventricular high rate episodes. The longest occurred 11-11-17 at 8:06 AM for 7 seconds. EGM is consistent with a 29 beat run of NSVT with rate 155-210 beats. No tachycardia therapies recommended or delivered. PVC singles 0.7/hour PVC runs <0.1/hour Histogram good. Battery longevity 9.9 years. Normal and stable device function. Quarterly remote monitoring. Device interrogation due in office in 2 months. Eleanor AlvaradoADARSH weldon - 11/11/2017 1000 PSTFormatting of this note may be different from the original. PATIENT NAME: Bob Will : 1955: AGE: 62 y.o. PRIMARY CARE: Chato Matson MD OUTPATIENT FOLLOW UP VISIT Date of Service: 11/11/2017 HISTORY OF PRESENT ILLNESS: Bob Will is a 62 y.o. male with a history of coronary 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 post recent anterior wall LA, post PTCA and stents of the left main, LAD and LCx on 03/15/17, cardiac shoc k, left atrial appendage thrombus, recent status post stents to , PURCHASING DEPARTMENT CLERK-D placement in [facility] on 10/17/2017. He was last seen 10/19/17 at which time he was told to have a wound check in 1 week, follow up appointment for medication up titration in 2 weeks, he was referred to cardiac rehabili tation s/p stents, check blood pressure and pulse twice daily for two weeks and return the l og to our office, follow up in 1 month for office visit and device interrogation looking for atrial flutter and VT Since that time, he has been "feeling better and less fatigued". He will start cardiac reha bilitation today and he is looking forward to it. He has had no episodes of chest pain or s hortness of breath. He has not felt that his legs have gotten any more swelling. He has be en drinking more popping he feels that his slight weight gain is because of all of the incre asing pop that he has been doing. He has been sleeping with 1 or 2 pillows without feeling any increasing shortness of breath. He did feel one episode where he felt slightly lighthea ded and that that episode coincided with device interrogation showing a 29 beat long SVT epi sode. MEDICAL, SURGICAL, AND PERSONAL HISTORY Past Medical, Surgical, Family, and Social History are reviewed in EPIC. CURRENT PROBLEMS Patient Active Problem List Diagnosis Acute anterior wall LA CAD (coronary 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) Ischemic cardiomyopathy Pulmonary edema PURCHASING DEPARTMENT CLERK-D (AICD) [employer] 10/16/17 [facility] Stecker Implantable defibrillator reprogramming/check H/O atrial flutter Tachycardia CURRENT MEDICATIONS Current Outpatient Prescriptions Medication Sig Dispense Refill aspirin 81 MG tablet Take 81 mg by mouth Daily. atorvaSTATin (LIPITOR) 80 MG tablet Take 1 tablet by mouth nightly. 30 tablet 5 Cholecalciferol (VITAMIN D-3) 57805 units CAPS Take by mouth Once a [...] tablet Take 10 mg by mouth Daily. metFORMIN (GLUCOPHAGE) 500 mg tablet Take 500 mg by mouth 2 times daily (with breakfast & dinner). metoprolol succinate (TOPROL-XL) 25 mg 24 hr tablet Take 1 tablet by mouth Daily. 30 ta blet 3 nitroglycerin (NITROSTAT) 0.[address] 1 tablet under the tongue every 5 shai janeth as needed for Chest pain. 0 nystatin (MYCOSTATIN) powder Genital region pantoprazole (PROTONIX) 40 mg tablet Take 1 tablet by mouth 2 times daily (before meals ). 60 tablet 5 raNITIdine (ZANTAC) 300 MG capsule Take 300 mg by mouth every evening. traMADol (ULTRAM) 50 mg tablet Take 50 mg by mouth every 6 hours as needed. No current facility-administered medications for this visit. ALLERGIES No Known Allergies ROS Review of Systems Constitutional: Negative for malaise/fatigue. HENT: Negative for nosebleeds. Respiratory: Negative for shortness of breath. Cardiovascular: Negative for chest pain and palpitations. Neurological: Negative for dizziness, weakness and headaches. OBJECTIVE: PHYSICAL EXAM BP 124/70 | Pulse 64 | Resp 12 | Ht 1.778 m (5' 10") | Wt 96.6 kg (212 lb 15.4 oz) | B LA 30.56 kg/m Physical Exam Constitutional: He is oriented [...] orders placed or performed in visit on 11/11/17 ECG 12 lead Result Value Ref Range INTERPRETATION TEXT LAB RESULTS reviewed during visit today primarily from [facility]: LIPID Lab Results Component Value Date [...] 10/17/2017 PLT 178 10/07/2017 PLTEX 226 10/17/2017 I reviewed records from [facility] for office visit on 10/2017 whic h is summarized in the HPI. Above data [...] shock requiring IABP, pressor (dopamine, norepin ephrine). [facility] and [facility] ER were on divert. Patient wasn't transferred to [facility]. B. Echocardiogram 03/17/2017 shows LV ejection fraction is severely decreased, vi sually estimated left ventricular ejection fraction is 20 - 25%, left ventricular systolic t hickening is segmentally abnormal, mildly reduced RV systolic function. Normal RV size, no s ignificant valvular abnormalities seen, compared to the most recent exam dated, 03/15/2017, there is no significant changes C. At [facility], patient had another STEMI code 03/29, [...] to follow up closely with a local saddle maker in [place]. He wias dis chargeed with a LifeVest [...] we will transfer the patie nt to [facility] for consideration of urgent coronary revascularization. [...] care for ischemic cardiomyopathy M. Today, patient has improved energy level. He will start cardiac rehabilitation today. H e has no angina or dyspnea. There is no signs and symptoms of overt congestive heart failur e. He is upgraded to a class I-II of [place] [employer] functional class. Heart fa ilure stage C. There is no fluid retention [...] myocardium in these regions. C. S/P [employer] PURCHASING DEPARTMENT CLERK-D 10-16-17 Dr Darby, [facility]. Ice interrogation today shows one episode of 29 beats of SVT with no therapy required. 3. Ventricular tachycardia: A. Electrophysiology Study 10/16/17 [...] a week ago. This was after his LA and a t the same time patient was having ventricular tachycardia. He was initiated on amiodarone and then discontinued before discharge. The plan is to monitor through his device and see i f this is a problem that needs to be addressed. Patient is not on anticoagulation he was le ft that way from [facility]. Patient has had several GI bleeds and he felt at that point that he is bleeding risk are higher therefore they will be possibility of reinitiating anticoagulati on if patient has more episodes of paroxysmal atrial flutter 6. Positive screening for PAD 7. Normocytic anemia PLAN: 1. Further episodes of atrial fibrillation or atrial flutter in device interrogation today . 2. Her now, patient will continue some therapeutic medical regimen and started cardiac jennie abilitation. 3. Follow-up in 2 months for office visit and device interrogation. We will recheck echoc ardiogram before his next appointment. Portions of this chart may have been created with [employer] voice recognition software. Occasi onal wrong-word or [...] | | | | | | [place] [address] | | | | | | [phone] | | | | | | | | +--------+ + + + + | 12/24/ | Office | Cardiac | Randy Figueroa, | | | 2017 | Visit | Rehabilitation | MD Javid Crespo | | | | | | [place], | | | | | | [place] [address] | | | | | | [phone] | | | | | | | | +--------+ + + + + | 12/31/ | Office | Cardiac | Randy Figueroa, | | | 2017 | Visit | Rehabilitation | MD Javid Crespo | | | | | | [place], | | | | | | [place] [address] | | | | | | [phone] | | | | | | | | +--------+ + + + + | 01/07/ | Office | Cardiac | Randy Figueroa, | | | 2017 | Visit | Rehabilitation | MD Javid Crespo | | | | | | [place], | | | | | | [place] [address] | | | | | | [phone] | | | | | | | [...] | | | | | | [place] [address] | | | | | | [phone] | | | | | | | | +--------+ + + + + | 01/14/ | Office | Cardiac | Randy Figueroa, | | | 2017 | Visit | Rehabilitation | MD [address] | | | | | | [place], | | | | | | [place] [address] | | | | | | [phone] | | | | | | | | +--------+ + + + + | 01/21/ | Office | Cardiac | Randy Figueroa, | | | 2017 | Visit | Rehabilitation | MD [address] | | | | | | [place], | | | | | | [place] [address] | | | | | | [phone] | | | | | | | | +--------+ + + + + | 01/28/ | Office | Cardiac | Randy Figueroa, | | | 2017 | Visit | Rehabilitation | MD [address] | | | | | | [place], | | | | | | [place] [address] | | | | | | [phone] | | | | | | | | +--------+ + + + + | 02/04/ | Office | Cardiac | Randy Figueroa, | | | 2017 | Visit | Rehabilitation | MD [address] | | | | | | [place], | | | | | | [place] [address] | | | | | | [phone] | | | | | | | | +--------+ + + + + | 02/11/ | Office | Cardiac | Randy Figueroa, | | | 2017 | Visit | Rehabilitation | MD [address] | | | | | | [place], | | | | | | [place] [address] | | | | | | [phone] | | | | | | | | +--------+ + + + + | 02/18/ | Office | Cardiac | Randy Figueroa, | | | 2017 | Visit | Rehabilitation | MD [address] | | | | | | [place], | | | | | | [place] [address] | | | | | | [phone] | | | | | | | | +--------+ + + + + | 02/24/ | Procedure | Physical Medicine | Prosper Esteves | | | 2017 | visit | and Rehabilitation | MD [address] | | | | | | [place] | | | | | | [address] | | | | | | | | +--------+ + + + + | 02/25/ | Office | Cardiac | Randy Figueroa, | | | 2017 | Visit | Rehabilitation | MD Javid Crespo | | | | | | [place], | | | | | | [place] [address] | | | | | | [phone] | | | | | | | | +--------+ + + + + | 03/04/ | Office | Cardiac | Randy Figueroa, | | | 2017 | Visit | Rehabilitation | MD Javid Crespo | | | | | | [place], | | | | | | [place] [address] | | | | | | [phone] | | | | | | | | +--------+ + + + + | 03/11/ | Office | Cardiac | CarolinaLindarisa, | | | 2017 | Visit | Rehabilitation | [address] | | | | | | [place], | | | | | | [place] [address] | | | | | | [phone] | | | | | | | | +--------+ + + + + + +--------+ + + | Name | Priori | Associated Diagnoses | Order Schedule | | | ty | | | + +--------+ + + | ECG 12 lead | Routin | PURCHASING DEPARTMENT CLERK-D (AICD) | Ordered: 11/11/2017 | | | e | [employer] 10/16/17 | | | | | EULOGIO Darby | | | | | Tachycardia | | | | | Ischemic | | | | | cardiomyopathy | | | | | Coronary artery | | | | | disease involving | | | | | osage coronary | | | | | artery of osage | | | | | heart without angina | | | | | pectoris Acute | | | | | anterior wall LA | | | | | ([facility]) H/O atrial | | | | | flutter | | + +--------+ + + | ECHO Complete | Routin | PURCHASING DEPARTMENT CLERK-D (AICD) | Expected: | | | e | [employer] 10/16/17 | 11/11/2017, Expires: | | | | EULOGIO Darby | 11/11/2018 | | | | Ischemic | | | | | cardiomyopathy | | + +--------+ + + as of this encounter Visit Diagnoses + + | Diagnosis | + + | PURCHASING DEPARTMENT CLERK-D (AICD) [employer] 10/16/17 EULOGIO Darby - Primary | + + | Tachycardia | + + | Tachycardia, unspecified | + + | Ischemic cardiomyopathy | + + | Other specified forms of chronic ischemic heart disease | + + | Coronary 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 involving osage coronary artery of osage heart without angina | | pectoris | + + | Acute anterior wall LA (HCC) | + + | Acute myocardial infarction of other anterior wall, episode of care unspecified | + + | H/O atrial flutter | + + | Personal history of other diseases of circulatory system | + + | Implantable defibrillator reprogramming/check | + + | Fitting and adjustment of automatic implantable cardiac defibrillator | + +
--- OUTSIDE RECORDS SUMMARY | ~2017-12-16 | XMS | Encounter Summary ---
Demographics + + + | Address | [address] | | | [place] [address] | + + + | Home Phone [...] + | Author | [facility] | | | and [place] | + + + | Organization | [facility] | | | and [place] | + + + | Address | Unknown | + + + | Phone | Unavailable | + + + Support + + + + + | Name | Relationship | Address | Phone | + + + + + | Venice Will | ECON | [address] | | | | | #[place] | | | | | [address] | | + + + + + Care Team Providers + +------+ + | Care Geotechnical Laboratory Technician Name | Role | Phone | [...] + + | 10/19/ | Office | [facility] | Jenny, | Ischemic | | 2018 | Visit | CARDIOLOGY [address] | ADARSH Santo [address] | cardiomyopathy | | | | [place], | [place], | (Primary Dx); | | | | [place] [address] | [place] [address] | Coronary artery | | | | [phone] | [phone] | disease involving | | | | | | big lagoon coronary | | | | | | artery of big lagoon | | | | | | heart without angina | | | | | | pectoris; Acute | | | | | | anterior wall RI | | | | | | (HCC); ACCOUNT MANAGEMENT SPECIALIST-D (AICD) | | | | | | [...] | Blood Pressure | 120/72 | 10/19/2017 1340 PST | + + + + | Pulse | 72 | 10/19/2017 1340 PST | + + + + | Temperature | - | - | + + + + | Respiratory Rate | 16 | 10/19/2017 1340 PST | + + + + | Oxygen Saturation | - | - | + + + + | Inhaled Oxygen | - | - | | Concentration | | | + + + + | Weight | 89.5 kg (197 lb 5 | 10/19/2017 1340 PST | | | oz) | | + + + + | Height | 177.8 cm (5' 10") | 10/19/2017 1340 PST | + + + + | Body Mass Index | 28.31 | 10/19/2017 1340 PST | + + + + in this encounter Instructions Patient Instructions - Lilian Machado RN - 10/19/2017 1330 PST Follow up appointment: wound check Provider: ALFONSO Date: Check-In Time: Follow up appointment: 2-3 weeks Provider: ADARSH Stevens Date: Check-In Time: Cardiac Rehab - someone from Rehab will call you to arrange an appointmentin this encounter Progress Notes Hansa Alvarado ARNP - 10/19/2017 1330 PSTFormatting of this note may be different from the original. PATIENT NAME: Bob Will : 1955: AGE: 61 y.o. PRIMARY CARE: Chato Matson MD OUTPATIENT FOLLOW UP VISIT Date of Service: 10/19/2017 HISTORY OF PRESENT ILLNESS: Bob Will is a 61 y.o. male with a history of coronary 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 post recent anterior wall RI, post PTCA and stents of the left main, LAD and LCx on 03/15/17, cardiac shoc k, left atrial appendage thrombus, recent status post stents to , ACCOUNT MANAGEMENT SPECIALIST-D placement in [facility] on 10/17/2017. 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 He was then transferred to [facility] where he received a ACCOUNT MANAGEMENT SPECIALIST-D for EF 30-35% and EP study with [...] Active Problem List Diagnosis Acute anterior wall RI CAD (coronary 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) Ischemic cardiomyopathy Pulmonary edema CURRENT MEDICATIONS Current Outpatient Prescriptions Medication Sig Dispense Refill aspirin 81 MG tablet Take 81 mg by mouth Daily. atorvaSTATin (LIPITOR) 40 mg tablet Take 40 mg by mouth nightly. carvedilol (COREG) 3.125 mg tablet Take 1 tablet by mouth 2 times daily (with breakfast & dinner). 60 tablet Cholecalciferol (VITAMIN D-3) 98891 units CAPS Take by mouth Once a [...] visit today primarily from [facility]: LIPID No results found for: CHOL, TRIG, [...] PLTEX 194 03/15/2017 I reviewed records from [facility] for hospitalization,including H&P, Discharge Summary and lab r eports on 10/2017 and records from [facility] from hospitalization on 09/2017 w hich is [...] medical care for ischemic cardiomyopathy S/P [employer] ACCOUNT MANAGEMENT SPECIALIST-D 10-16-17 Dr Darby, [facility] Above data and testing is reviewed this [...] shock requiring IABP, pressor (dopamine, norepin ephrine). [facility] and [facility] were on divert. Patient wasn't transferred to [facility]. B. Echocardiogram 03/17/2017 shows LV ejection fraction is severely decreased, vi sually estimated left ventricular ejection fraction is 20 - 25%, left ventricular systolic t hickening is segmentally abnormal, mildly reduced RV systolic function. Normal RV size, no s ignificant valvular abnormalities seen, compared to the most recent exam dated, 03/15/2017, there is no significant changes C. At [facility], patient had another STEMI code 03/29, with [...] to follow up closely with a local data entry coordinator in [place]. He wias dis chargeed with a LifeVest [...] we will transfer the patie nt to [facility] for consideration of urgent coronary revascularization. J. [...] He is in a class II of [place] Heart Association functional cl ass. Heart failure [...] myocardium in these regions. C. S/P [employer] ACCOUNT MANAGEMENT SPECIALIST-D 10-16-17 Dr Darby, [facility] 3. Ventricular tachycardia: A. Electrophysiology Study 10/16/17 [...] a week ago. This was after his RI and a t the same time patient was having ventricular tachycardia. He was initiated on amiodarone and then discontinued before discharge. The plan is to monitor through his device and see i f this is a problem that needs to be addressed. Patient is not on anticoagulation he was le ft that way from [facility]. Patient has had several GI bleeds and [...] this chart may have been created with [employer] voice recognition software. Occasi onal wrong-word or [...] | 12/17/ | Office | Cardiac | Lauren Figueroa, | | | 2017 | Visit | Rehabilitation | MD Javid Crespo | | | | | | [place], | | | | | | [place] [address] | | | | | | [phone] | | | | | | | | +--------+ + + + + | 12/24/ | Office | Cardiac | Lauren Figueroa, | | | 2017 | Visit | Rehabilitation | MD Javid Crespo | | | | | | [facility] [place], | | | | | | [place] [address] | | | | | | [phone] | | | | | | | | +--------+ + + + + | 12/31/ | Office | Cardiac | Lauren Figueroa, | | | 2017 | Visit | Rehabilitation | MD Javid Crespo | | | | | | [place], | | | | | | [place] [address] | | | | | | [phone] | | | | | | | | +--------+ + + + + | 01/07/ | Office | Cardiac | Lauren Figueroa, | | | 2017 | Visit | Rehabilitation | MD Javid Crespo | | | | | | [place], | | | | | | [place] [address] | | | | | | [phone] | | | | | | | [...] [place], | | | | | | [place] [address] | | | | | | [phone] | | | | | | | | +--------+ + + + + | 01/14/ | Office | Cardiac | Lauren Figueroa, | | | 2017 | Visit | Rehabilitation | MD [address] [place] | | | | | | [place], | | | | | | [place] [address] | | | | | | [phone] | | | | | | | | +--------+ + + + + | 01/21/ | Office | Cardiac | Lauren Figueroa, | | | 2017 | Visit | Rehabilitation | MD [address] [place] | | | | | | [place], | | | | | | [place] [address] | | | | | | [phone] | | | | | | | | +--------+ + + + + | 01/28/ | Office | Cardiac | Lauren Figueroa, | | | 2017 | Visit | Rehabilitation | MD [address] [place] | | | | | | [place], | | | | | | [place] [address] | | | | | | [phone] | | | | | | | | +--------+ + + + + | 02/04/ | Office | Cardiac | Lauren Figueroa, | | | 2017 | Visit | Rehabilitation | MD [address] [place] | | | | | | [place], | | | | | | [place] [address] | | | | | | [phone] | | | | | | | | +--------+ + + + + | 02/11/ | Office | Cardiac | Lauren Figueroa, | | | 2017 | Visit | Rehabilitation | MD [address] [place] | | | | | | [place], | | | | | | [place] [address] | | | | | | [phone] | | | | | | | | +--------+ + + + + | 02/18/ | Office | Cardiac | Lauren Figueroa, | | | 2017 | Visit | Rehabilitation | MD [address] [place] | | | | | | [place] | | | | | | [place] [address] | | | | | | [phone] | | | | | | | | +--------+ + + + + | 02/24/ | Procedure | Physical Medicine | Prosper Esteves | | | 2017 | visit | and Rehabilitation | MD Art Isabel | | | | | | [place], [place] | | | | | | [address] | | | | | | | | +--------+ + + + + | 02/25/ | Office | Cardiac | Lauren Figueroa, | | | 2017 | Visit | Rehabilitation | MD Javid Crespo | | | | | | [place], | | | | | | [place] [address] | | | | | | [phone] | | | | | | | | +--------+ + + + + | 03/04/ | Office | Cardiac | Lauren Figueroa, | | | 2017 | Visit | Rehabilitation | MD Javid Crespo | | | | | | [place], | | | | | | [place] [address] | | | | | | [phone] | | | | | | | | +--------+ + + + + | 03/11/ | Office | Cardiac | Lauren Figueroa, | | | 2017 | Visit | Rehabilitation | MD Javid Crespo | | | | | | [place], | | | | | | [place] [address] | | | | | | [phone] | | | | | | | | +--------+ + + + + as of this encounter Results ECG 12 lead (10/19/2017 1714) + + +- + | Component | Value | Ref Range | + + +- + | VENTRICULAR RATE EKG | 87 | BPM | + + +- + | ATRIAL RATE | 87 | BPM | + + +- + | P-R INTERVAL | 152 | ms | + + +- + | QRS DURATION | 146 | ms | + + +- + | Q-T INTERVAL | 434 | ms | + + +- + | Q-T INTERVAL | 522 | ms | | (CORRECTED) | | | + + +- + | P WAVE AXIS | 62 | degrees | + + +- + | QRS AXIS | 179 | degrees | + + +- + | T AXIS | 36 | degrees | + + +- + | INTERPRETATION TEXT | Normal sinus rhythmNonspecific | | | | intraventricular blockPossible Lateral | | | | infarct , age undeterminedInferior infarct | | | | , age undeterminedAbnormal ECGNo previous | | | | ECGs availableConfirmed by NEMO BREWER, | | | | LAUREN ([id number]) on 10/19/2017 5:14:23 PM | | | |Confirmed by NEMO BREWER, LAUREN ([id number]) on 10/19/2017 5:14:23 PM | | | | | | + + +- + + + + | Specimen | Performing Laboratory | + + + | | [facility] | + + + in this encounter Visit Diagnoses + + | Diagnosis | + + | Ischemic cardiomyopathy - Primary | + + | Other specified forms of chronic ischemic heart disease | + + | Coronary 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 involving big lagoon coronary artery of big lagoon heart without angina | | pectoris | + + | Acute anterior wall RI (HCC) | + + | Acute myocardial infarction of other anterior wall, episode of care unspecified | + + | ACCOUNT MANAGEMENT SPECIALIST-D (GABBI) [employer] 10/16/17 MIGUELMENDY Roblesgeno | + + | Tachycardia | + + | Tachycardia, unspecified | + +
--- OUTSIDE RECORDS SUMMARY | ~2017-12-16 | XMS | Encounter Summary ---
Demographics + + + | Address | [address] | | | [place] [address] | + + + | Home Phone | | + + + | Preferred Language | Unknown | + + + | Marital Status | | + + + | Restorationism Affiliation | NRP | + + + | Race | White | + + + | Ethnic Group | Not or | + + + Author + + + | Author | [facility] | + + + | Organization | [facility] | + + + | Address | Unknown | + + + | Phone | Unavailable | + + + Support + + + + + | Name | Relationship | Address | Phone | + + + + + | ANNA MCKEON | ECON | [address] | | | | | [place] [address] | | + + + + + Care Team Providers + +------+ + | Care Consultant Teacher Name | Role | Phone | + +------+ + | Chato Matson MD | PCP | | + +------+ + Encounter Details +--------+ + + + + | Date | Type | Department | Care Team | Description | +--------+ + + + + | 10/11/ | Procedure | [facility] [address] | | | | 2017 | Pass | [address] | | | | | | [address] [facility] | | | | | | [place], [place] | | | | | | [address] | | | | | | [phone] | | | +--------+ + + + [...]
--- OUTSIDE RECORDS SUMMARY | ~2017-12-16 | XMS | Encounter Summary ---
Demographics + + + | Address | [address] | | | [place] [address] | + + + | Home Phone | | + + + | Preferred Language | Unknown | + + + | Marital Status | | + + + | Evangelical Affiliation | Unknown | + + + | Race | Unknown | + + + | Ethnic Group | Unknown | + + + Author + + + | Author | [facility] | | | and [place] | + + + | Organization | [facility] | | | and [place] | + + + | Address | Unknown | + + + | Phone | Unavailable | + + + Support + + + + + | Name | Relationship | Address | Phone | + + + + + | [place] Will | ECON | [address] | | | | | #[place] | | | | | [address] | | + + + + + Care Team Providers + +------+ + | Care Data Processing Mechanic Name | Role | Phone | [...] + + | 10/19/ | Office | [facility] | Jenny, | Ischemic | | 2018 | Visit | CARDIOLOGY [address] | ADARSH Santo [address] | cardiomyopathy | | | | [place], | [place], | (Primary Dx); | | | | [place] [address] | [place] [address] | Coronary artery | | | | [phone] | [phone] | disease involving | | | | | | paimiut coronary | | | | | | artery of paimiut | | | | | | heart without angina | | | | | | pectoris; Acute | | | | | | anterior wall SD | | | | | | (HCC); MARBLE SUPERVISOR-D (AICD) | | | | | | [...] coronary 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 post recent anterior wall SD, post PTCA and stents of the left main, LAD and LCx on 03/15/17, cardiac shoc k, left atrial appendage thrombus, recent status post stents to , MARBLE SUPERVISOR-D placement in [facility] on 10/17/2017. 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 He was then transferred to [facility] where he received a MARBLE SUPERVISOR-D for EF 30-35% and EP study with [...] Active Problem List Diagnosis Acute anterior wall SD CAD (coronary 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) Ischemic cardiomyopathy Pulmonary edema CURRENT MEDICATIONS Current Outpatient Prescriptions Medication Sig Dispense Refill aspirin 81 MG tablet Take 81 mg by mouth Daily. atorvaSTATin (LIPITOR) 40 mg tablet Take 40 mg by mouth nightly. carvedilol (COREG) 3.125 mg tablet Take 1 tablet by mouth 2 times daily (with breakfast & dinner). 60 tablet Cholecalciferol (VITAMIN D-3) 54088 units CAPS Take by mouth Once a [...] RESULTS reviewed during visit today primarily from [facility]: LIPID No results found for: CHOL, [...] PLTEX 194 03/15/2017 I reviewed records from [facility] for hospitalization,including H&P, Discharge Summary and lab r eports on 10/2017 and records from [facility] from hospitalization on 09/2017 w hich is [...] medical care for ischemic cardiomyopathy S/P [employer] MARBLE SUPERVISOR-D 10-16-17 Dr Darby, [facility] Above data and testing is reviewed [...] shock requiring IABP, pressor (dopamine, norepin ephrine). [facility] and [facility] were on divert. Patient wasn't transferred [...] to follow up closely with a local machine wiper in [place]. He wias dis chargeed with a LifeVest [...] we will transfer the patie nt to [facility] for consideration of urgent coronary revascularization. [...] He is in a class II of [place] Heart Association functional cl ass. Heart failure [...] myocardium in these regions. C. S/P [employer] MARBLE SUPERVISOR-D 10-16-17 Dr Darby, [facility] 3. Ventricular tachycardia: A. Electrophysiology Study [...] a week ago. This was after his SD and a t the same time patient was having ventricular tachycardia. He was initiated on amiodarone and then discontinued before discharge. The plan is to monitor through his device and see i f this is a problem that needs to be addressed. Patient is not on anticoagulation he was le ft that way from [facility]. Patient [...] this chart may have been created with [employer] voice recognition software. Occasi onal wrong-word or [...] 2017 | Visit | Rehabilitation | MD aJvid Crespo | | | | | | [place], | | | | | | [place] [address] | | | | | | [phone] | | | | | | | | +--------+ + + + + | 12/24/ | Office | Cardiac | Lauren Figueroa, | | | 2017 | Visit | Rehabilitation | MD Javid Crespo | | | | | | [place], | | | | | | [place] [address] | | | | | | [phone] | | | | | | | | +--------+ + + + + | 12/31/ | Office | Cardiac | Lauren Figueroa, | | | 2017 | Visit | Rehabilitation | MD Javid Crespo | | | | | | [place], | | | | | | [place] [address] | | | | | | [phone] | | | | | | | | +--------+ + + + + | 01/07/ | Office | Cardiac | Lauren Figueroa, | | | 2017 | Visit | Rehabilitation | MD Javid Crespo | | | | | | [place], | | | | | | [place] [address] | | | | | | [phone] | | | | | | | [...] | | | | | | [place] [address] | | | | | | [phone] | | | | | | | | +--------+ + + + + | 01/14/ | Office | Cardiac | Lauren Figueroa, | | | 2017 | Visit | Rehabilitation | MD [address] [place] | | | | | | [place], | | | | | | [place] [address] | | | | | | [phone] | | | | | | | | +--------+ + + + + | 01/21/ | Office | Cardiac | Lauren Figueroa, | | | 2017 | Visit | Rehabilitation | MD [address] [place] | | | | | | [place], | | | | | | [place] [address] | | | | | | [phone] | | | | | | | | +--------+ + + + + | 01/28/ | Office | Cardiac | Lauren Figueroa, | | | 2017 | Visit | Rehabilitation | MD [address] [place] | | | | | | [place], | | | | | | [place] [address] | | | | | | [phone] | | | | | | | | +--------+ + + + + | 02/04/ | Office | Cardiac | Lauren Figueroa, | | | 2017 | Visit | Rehabilitation | MD [address] [place] | | | | | | [place], | | | | | | [place] [address] | | | | | | [phone] | | | | | | | | +--------+ + + + + | 02/11/ | Office | Cardiac | Lauren Figueroa, | | | 2017 | Visit | Rehabilitation | MD [address] | | | | | | [place], | | | | | | [place] [address] | | | | | | [phone] | | | | | | | | +--------+ + + + + | 02/18/ | Office | Cardiac | Lauren Figueroa, | | | 2017 | Visit | Rehabilitation | MD [address] | | | | | | [place] | | | | | | [place] [address] | | | | | | [phone] | | | | | | | | +--------+ + + + + | 02/24/ | Procedure | Physical Medicine | Prosper Esteves | | | 2017 | visit | and Rehabilitation | MD Art Isabel | | | | | | [place], [place] | | | | | | [address] | | | | | | | | +--------+ + + + + | 02/25/ | Office | Cardiac | Lauren Figueroa, | | | 2017 | Visit | Rehabilitation | MD Javid Crespo | | | | | | [place], | | | | | | [place] [address] | | | | | | [phone] | | | | | | | | +--------+ + + + + | 03/04/ | Office | Cardiac | Lauren Figueroa, | | | 2017 | Visit | Rehabilitation | MD Javid Crespo | | | | | | [place], | | | | | | [place] [address] | | | | | | [phone] | | | | | | | | +--------+ + + + + | 03/11/ | Office | Cardiac | Lauren Figueroa, | | | 2017 | Visit | Rehabilitation | MD Javid Crespo | | | | | | [place], | | | | | | [place] [address] | | | | | | [phone] | | | | | | | [...] NEMO BREWER, | | | | LAUREN ([id number]) on 10/19/2017 5:14:23 PM | | | |Confirmed by NEMO BREWER, LAUREN ([id number]) on 10/19/2017 5:14:23 PM | | | [...] + + | Coronary 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 involving paimiut coronary artery of paimiut heart without angina | | pectoris | + + | Acute anterior wall SD (HCC) | + + | Acute myocardial infarction of other anterior wall, episode of care unspecified | + + | MARBLE SUPERVISOR-D (GABBI) [employer] 10/16/17 MIGUELMENDY Roblesgeno | + + | Tachycardia | + + | Tachycardia, unspecified | + +
--- OUTSIDE RECORDS SUMMARY | ~2017-12-16 | XMS | Encounter Summary ---
Demographics + + + | Address | [address] | | | [place] [address] | + + + | Home Phone | | + + + | Preferred Language | Unknown | + + + | Marital Status | | + + + | Protestant Affiliation | NRP | + + + | Race | White | + + + | Ethnic Group | Not or | + + + Author + + + | Author | [facility] | + + + | Organization | [facility] | + + + | Address | Unknown | + + + | Phone | Unavailable | + + + Support + + + + + | Name | Relationship | Address | Phone | + + + + + | ANNA MCKEON | ECON | [address] | | | | | [place] [address] | | + + + + + Care Team Providers + +------+ + | Care Data Solutions Architect Name | Role | Phone | + [...] Pharmacy | | | | | | [address] | | | | | | [facility] | | | | | | [place], [place] | | | | | | [address] | | | +--------+ + + + [...]
--- OUTSIDE RECORDS SUMMARY | ~2017-12-16 | XMS | Encounter Summary ---
Demographics + + + | Address | [address] | | | [place] [address] | + + + | Home Phone | | + + + | Preferred Language | Unknown | + + + | Marital Status | | + + + | Mormonism Affiliation | Unknown | + + + | Race | Unknown | + + + | Ethnic Group | Unknown | + + + Author + + + | Author | [facility] | | | and [place] | + + + | Organization | [facility] | | | and [place] | + + + | Address | Unknown | + + + | Phone | Unavailable | + + + Support + + + + + | Name | Relationship | Address | Phone | + + + + + | [place] Will | E[place] | [address] | | | | | #[place] | | | | | [address] | | + + + + + Care Team Providers + +------+ + | Care Flooring Professional Name | Role | Phone | + +------+ + | Chato Matson MD | PCP | | + +------+ + Encounter Details +--------+---------+ + + + | Date | Type | Department | Care Team | Description | +--------+---------+ + + + | 12/03/ | Office | [facility] | Randy Figueroa, | Coronary artery | | 2018 | Visit | [facility] | [address] | disease involving | | | | REHABILITATION [address] | [place], | [place] coronary | | | | [address] [place] | [place] [address] | artery of [place] | | | | [place] [address] | [phone] | heart without angina | | | | [phone] | | pectoris (Primary | | | [...] this encounter Progress Notes Gael Woo - 12/03/2017 0900 PDTFormatting of this note may be different from the origin [facility] CARDIAC REHABILITATION [address] [facility] [address] Cardiac Rehab Date: 12/03/2017 Patient Information Patient Name: Bob Will Date of : 1955 Age: 62 y.o. Encounter Diagnoses Code Name Primary? I25.10 Coronary 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 involving [place] coronary artery of [place] heart without angina pectoris Yes I25.5 Ischemic [...] 12/03/2017 15:01 Patient Name: Bob Will/: 1955/ in this encounter Plan of Treatment +--------+ [...] | | | | | | [place] [address] | | | | | | [phone] | | | | | | | | +--------+ + + + + | 12/24/ | Office | Cardiac | Randy Figueroa, | | | 2017 | Visit | Rehabilitation | MD Javid Crespo | | | | | | [place], | | | | | | [place] [address] | | | | | | [phone] | | | | | | | | +--------+ + + + + | 12/31/ | Office | Cardiac | Randy Figueroa, | | | 2017 | Visit | Rehabilitation | MD Javid Crespo | | | | | | [place], | | | | | | [place] [address] | | | | | | [phone] | | | | | | | | +--------+ + + + + | 01/07/ | Office | Cardiac | Randy Figueroa, | | | 2017 | Visit | Rehabilitation | MD Javid Crespo | | | | | | [place], | | | | | | [place] [address] | | | | | | [phone] | | | | | | | | +--------+ + + + + | 01/13/ | Clinical | Cardiology | | | | 2017 | Support | | | | +--------+ + + + + | 01/13/ | Office | Cardiology | Jenny, | | | 2017 | Visit | | ADARSH Santo [address] | | | | | | [place], | | | | | | [place] [address] | | | | | | [phone] | | | | | | | | +--------+ + + + + | 01/14/ | Office | Cardiac | Randy Figueroa, | | | 2017 | Visit | Rehabilitation | MD Javid Crespo | | | | | | [place], | | | | | | [place] [address] | | | | | | [phone] | | | | | | | | +--------+ + + + + | 01/21/ | Office | Cardiac | Randy Figueroa, | | | 2017 | Visit | Rehabilitation | MD Javid Crespo | | | | | | [place], | | | | | | [place] [address] | | | | | | [phone] | | | | | | | | +--------+ + + + + | 01/28/ | Office | Cardiac | Randy Figueroa, | | | 2017 | Visit | Rehabilitation | MD [address] | | | | | | [place], | | | | | | [place] [address] | | | | | | [phone] | | | | | | | | +--------+ + + + + | 02/04/ | Office | Cardiac | Randy Figueroa, | | | 2017 | Visit | Rehabilitation | MD [address] | | | | | | [place], | | | | | | [place] [address] | | | | | | [phone] | | | | | | | | +--------+ + + + + | 02/11/ | Office | Cardiac | Randy Figueroa, | | | 2017 | Visit | Rehabilitation | MD [address] | | | | | | [place], | | | | | | [place] [address] | | | | | | [phone] | | | | | | | | +--------+ + + + + | 02/18/ | Office | Cardiac | Randy Figueroa, | | | 2017 | Visit | Rehabilitation | MD Javid Crespo | | | | | | [place], | | | | | | [place] [address] | | | | | | [phone] | | | | | | | | +--------+ + + + + | 02/24/ | Procedure | Physical Medicine | Prosper Esteves | | | 2017 | visit | and Rehabilitation | T, MD Art CRESPO | | | | | | [place] | | | | | | [address] | | | | | | | | +--------+ + + + + | 02/25/ | Office | Cardiac | Randy Figueroa, | | | 2017 | Visit | Rehabilitation | MD Javid Crespo | | | | | | [place], | | | | | | [place] [address] | | | | | | [phone] | | | | | | | | +--------+ + + + + | 03/04/ | Office | Cardiac | Randy Figueroa, | | | 2017 | Visit | Rehabilitation | MD Javid Rodriguezar | | | | | | [place], | | | | | | [place] [address] | | | | | | [phone] | | | | | | | | +--------+ + + + + | 03/11/ | Office | Cardiac | Randy Figueroa, | | | 2018 | Visit | Rehabilitation | MD [address] | | | | | | [place], | | | | | | [place] [address] | | | | | | [phone] | | | | | | | | +--------+ + + + + as of this encounter Visit Diagnoses + + | Diagnosis | + + | Coronary 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 involving [place] coronary artery of [place] heart without angina | | pectoris - Primary | + + | Ischemic cardiomyopathy | + + | Other specified forms of chronic ischemic heart disease | + +"
--- OUTSIDE RECORDS SUMMARY | ~2017-12-16 | XMS | Encounter Summary ---
Demographics + + + | Address | [address] | | | [place] [address] | + + + | Home Phone [...] Author | [facility] | | | and [place] | + + + | Organization | [facility] | | | and [place] | + + + | Address | Unknown | + + + | Phone | Unavailable | + + + Support + + + + + | Name | Relationship | Address | Phone | + + + + + | [place] Will | E[place] | [address] | | | | | #[place] | | | | | [address] | | + + + + + Care Team Providers + +------+ + | Care Chief Growth Officer Name | Role | Phone | + [...] | Specialty | Cardiac | Diagnoses | [place] | [facility] | | | Services | Rehabilitatio | Ischemic | MD Randy | | | | Required | n | cardiomyopat | [address] | Rehabilitatio | | | | | hy | [address] | [address] | | | | | Procedures | [place], | [place] | | | | | [place] | [place] [address] | [place] | | | | | OUTPATIENT | Phone: | [phone] | | | | | CARDIAC | [phone] | Phone: | | | | | REHAB W/O | Fax: | [phone] | | | | | CONT ECG | [phone] | Fax: | | | | | MONITOR | | [phone] | + + + + + + + Encounter Details +--------+ + + + + | Date | Type | Department | Care Team | Description | +--------+ + + + + | 10/19/ | Orders Only | [facility] | Randy Figueroa, | Ischemic | | 2018 | | CARDIOLOGY [address] | MD [address] | cardiomyopathy | | | | [place], | [place], | (Primary Dx) | | | | [place] [address] | [place] [address] | | | | | [phone] | [phone] | | | | | | | [...] [place], | | | | | | [place] [address] | | | | | | [phone] | | | | | | | | +--------+ + + + + | 12/24/ | Office | Cardiac | Randy Figueroa, | | | 2017 | Visit | Rehabilitation | MD Hua Jack Crespo | | | | | | [place], | | | | | | [place] [address] | | | | | | [phone] | | | | | | | | +--------+ + + + + | 12/31/ | Office | Cardiac | Randy Figueroa, | | | 2017 | Visit | Rehabilitation | MD Hua Jack Crespo | | | | | | [place], | | | | | | [place] [address] | | | | | | [phone] | | | | | | | | +--------+ + + + + | 01/07/ | Office | Cardiac | Randy Figueroa, | | | 2017 | Visit | Rehabilitation | MD Javid Crespo | | | | | | [place], | | | | | | [place] [address] | | | | | | [phone] | | | | | | | [...] [place], | | | | | | [place] [address] | | | | | | [phone] | | | | | | | | +--------+ + + + + | 01/14/ | Office | Cardiac | Randy Figueroa, | | | 2017 | Visit | Rehabilitation | MD Javid Crespo | | | | | | [place], | | | | | | [place] [address] | | | | | | [phone] | | | | | | | | +--------+ + + + + | 01/21/ | Office | Cardiac | Randy Figueroa, | | | 2017 | Visit | Rehabilitation | MD [address] | | | | | | [place], | | | | | | [place] [address] | | | | | | [phone] | | | | | | | | +--------+ + + + + | 01/28/ | Office | Cardiac | Randy Figueroa, | | | 2017 | Visit | Rehabilitation | MD [address] | | | | | | [place], | | | | | | [place] [address] | | | | | | [phone] | | | | | | | | +--------+ + + + + | 02/04/ | Office | Cardiac | Randy Figueroa, | | | 2017 | Visit | Rehabilitation | MD [address] | | | | | | [place], | | | | | | [place] [address] | | | | | | [phone] | | | | | | | | +--------+ + + + + | 02/11/ | Office | Cardiac | Randy Figueroa, | | | 2017 | Visit | Rehabilitation | MD Javid Crespo | | | | | | [place], | | | | | | [place] [address] | | | | | | [phone] | | | | | | | | +--------+ + + + + | 02/18/ | Office | Cardiac | Randy Figueroa, | | | 2017 | Visit | Rehabilitation | MD Javid Crespo | | | | | | [place], | | | | | | [place] [address] | | | | | | [phone] | | | | | | | | +--------+ + + + + | 02/24/ | Procedure | Physical Medicine | Prosper Esteves | | | 2017 | visit | and Rehabilitation | MD Art Isabel | | | | | | [place] | | | | | | [address] | | | | | | | | +--------+ + + + + | 02/25/ | Office | Cardiac | Randy Figueroa, | | | 2017 | Visit | Rehabilitation | MD [address] | | | | | | [place], | | | | | | [place] [address] | | | | | | [phone] | | | | | | | | +--------+ + + + + | 03/04/ | Office | Cardiac | Randy Figueroa, | | | 2017 | Visit | Rehabilitation | MD [address] | | | | | | [place], | | | | | | [place] [address] | | | | | | [phone] | | | | | | | | +--------+ + + + + | 03/11/ | Office | Cardiac | Randy Figueroa, | | | 2017 | Visit | Rehabilitation | MD [address] | | | | | | [place], | | | | | | [place] [address] | | | | | | [phone] | | | | | | | | +--------+ + + + + + +--------+ + + | Name | Priori | Associated Diagnoses | Order Schedule | | | ty | | | + +--------+ + + | Referral to Cardiac Rehab | Routin | Ischemic | 1 Occurrences | | | e | cardiomyopathy | starting 10/19/2017 | | | | | until 10/19/2018 | + +--------+ + + as of this encounter Visit Diagnoses + + | Diagnosis | + + | Ischemic cardiomyopathy - Primary | + + | Other specified forms of chronic ischemic heart disease | + +"
--- OUTSIDE RECORDS SUMMARY | ~2017-12-16 | XMS | Encounter Summary ---
Demographics + + + | Address | [address] | | | [place] [address] | + + + | Home Phone [...] | Author | [facility] | | | and [place] | + + + | Organization | [facility] | | | and [place] | + + + | Address | Unknown | + + + | Phone | Unavailable | + + + Support + + + + + | Name | Relationship | Address | Phone | + + + + + | Venice Hood | ECON | [address] | | | | | #[address] | | | | | [address] | | + + + + + Care Team Providers + +------+ + | Care Home Service Demonstrator Name | Role | Phone | + [...] | | | | | | OR | | | | | | | [...] +--------+---------+ + + + | 10/05/ | [facility] | [facility] | Terry Weir MD | EGD | | 2017 | | [facility] | [address], [place] | | | | | [address] | [address] | | | | | [place] | [address] | | | | | [address] | | | | | | [phone] | | | +--------+---------+ + + + [...] + | Blood Pressure | 116/71 | 10/10/201719 PST | + + + + | Pulse | 94 | 10/10/2017 0901 PST | + + + + | [...] | 90.3 kg (199 lb 1.2 | 10/09/2017499 PST | | | oz) | | [...] of known severe ischemic CAD/recent ant wall PR in 03/2017 c/b card iogenic shock s/p ECMO in [facility] 4. Paroxysmal atrial flutter Patient Active Problem List Diagnosis Acute anterior wall PR CAD (coronary 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) Ischemic cardiomyopathy Pulmonary [...] history of CAD with recent anterior wall PR, post PTCA and st ents of the left main, LAD and LCx on 03/15/17 + left atrial appendage thrombus c/b cardiac sh ock/respiratory failure requiring Tx to [facility]; was on ECMO, who was a transfer this time from [facility] on 10/03 for acute respiratory failure requiring intubation after prese nting with progressively worsening shortness of breath. Hospital Course, including Complications: He was found to have NSTEMI with new LBBB and elevated tropinin and Septic shock thought t o be from pneumonia/influenza; started on ceftriaxone, azithromycin and tamiflu. He underwen t [facility] on 10/03- severe in-stent stenosis of left main to ostial LAD stent, severe instent raulito nosis ostial proximal left circumflex stent, mild [...] Pneumonia is resolving. Dr. Mobley discussed with Sonido haynes at [facility] but patient refused to go to [place] for re-vascu larization. He preferred to go to [facility]. Dr. Mobley discussed with Dr. Bedoya at [facility] and he was accepted by him. 1. Acute hypoxic respiratory failure thought to be from septic shock 2/2 Pneumonia/influen za requiring Mechanical vent - Improving. Saturating well on RA - s/p extubation on 10/05 - weaning oxygen to Sp02>=94% , saturating 97% on 4 liters NC - continue ceftriaxone D#04/16. Completed 5 days of azithromycin and completed tamiflu x 6 days. . - continue BiPAP PRN - continue duonebs - [place] 2. Acute on chronic systolic CHF exacerbation - improving - On lasix PRN - strict I and O, daily weight - BiPAP PRN 3. NSTEMI in the setting of known severe ischemic CAD/recent ant wall PR in 03/2017 c/b sonido iogenic shock s/p ECMO in [facility] - troponin peaked to 26 - [facility] on 10/03- severe in-stent stenosis of left main to ostial LAD stent, severe instent s tenosis ostial proximal left circumflex stent, mild to mod RCA disease. - Echo 1/27- EF 40%, thinning and severe hypokinesis distal anterior, anterior septal and a pical segments. - continue aspirin, plavix and statin. C/w coreg. - will resume ACEI if creatinine stable. - Dr. Mobley discussed with Cardiology at [facility] and was accepted at [facility] for re-vascularization but patient refused and wanted to be transferred to [facility]. Dr. Mobley discussed with cardiology at [facility] and was accepted by them. - [...] results on DC: None Disposition: Transfer to [facility] cardiology service Dr. Bedoya accepting physician Discharge Procedure Orders Transfer patient to other facility Order Comments: [facility] when bed is available. Code Status/Advance Directive (Pertinent discussions/declarations): Full Code Time spent on Discharge and Coordination of post-hospital care: >30 minutes Electronically signed by: Destinee Trejo, 10/10/2017 15:01 [facility] in this encounter Medications at Time of [...] Rhea Oneal RN - 10/10/2017 1555 PSTCalled ALFONSO KRISHNAN informed that Lotus Sarmiento to call back this RN, phone number given. Electronically signed by: Rhea Ventura RN 10/10/2017 15:58 Rhea Oneal RN - 10/10/2017 1359 PSTPatient called RN to bedside, patient to winsome o to [facility], wants to get better and do the procedure. RN to inform MD Electronically signed b y: Rhea Ventura RN 10/10/2017 14:00 Rhea Oneal RN - 10/10/2017 1306 P STDrFletcher Mobley at bedside to explain to the patient [...] of this note may be different from th e original. PATIENT NAME: Bob Hood : 1955: [...] The patient will be transferred today to [facility] for coronary revascularization. MEDICATIONS: Current Facility-Administered [...] on amiodarone PLAN OR RECOMMENDATIONS: Transfer to [facility] audiology service Dr. Segura accepting physician I appreciate the opportunity of participating in the care of this patient. Delmer Mobley MD, 10/09/2017 15:00 Destinee Trejo MD - 10/09/2017 0816 PSTFormatting of this note may be different from the original. [facility] PMG Hospitalist Progress Note Bob Hood is a 61 y.o. male INTERVAL HPI: He is a 61 y.o. male with a history of CAD with recent anterior wall PR, post PTCA and sten ts of the left main, LAD and LCx on 03/15/17 + left atrial appendage thrombus c/b cardiac shoc k/respiratory failure requiring Tx to [facility]; was on ECMO, who was a transfer this time from [facility] on 10/03 for acute respiratory failure [...] of known severe ischemic CAD/recent ant wall PR in 03/2017 c/b card iogenic shock s/p ECMO in [facility] - troponin peaked to 26 - [...] Mobley will consult with cardiology team at [facility] Re: planning for revascularization today 4. Paroxysmal [...] as outlined above. Destinee Trejo 10/09/2017 8:16 [facility] Destinee Trejo MD - 10/08/2017 1220 PSTFormatting of this note may be different from the original. [facility] PMG Hospitalist Progress Note Bob Hood is a 61 y.o. male INTERVAL HPI: He is a 61 y.o. male with a history of CAD with recent anterior wall PR, post PTCA and sten ts of the left main, LAD and LCx on 03/15/17 + left atrial appendage thrombus c/b cardiac shoc k/respiratory failure requiring Tx to [facility]; was on ECMO, who was a transfer this time from [facility] on 10/03 for acute respiratory failure [...] % on high-flow nasal ca nnula, heated, computational linguist system at flow rate 14L/min Temp Min: [...] of known severe ischemic CAD/recent ant wall PR in 03/2017 c/b card iogenic shock s/p ECMO in [facility] - troponin peaked to 26 - [...] Mobley will consult with cardiology team at [facility] Re: planning for revascularization today 4. Paroxysmal [...] as outlined above. Destinee Trejo 10/08/2017 12:20 [facility] Destinee Trejo MD - 10/07/2017 1438 PSTFormatting of this note may be different from the original. [facility] PMG Hospitalist Progress Note Bob Hood is a 61 y.o. male INTERVAL HPI: He is a 61 y.o. male with a history of CAD with recent anterior wall PR, post PTCA and sten ts of the left main, LAD and LCx on 03/15/17 + left atrial appendage thrombus c/b cardiac shoc k/respiratory failure requiring Tx to [facility]; was on ECMO, who was a transfer this time from [facility] on 10/03 for acute respiratory failure [...] of known severe ischemic CAD/recent ant wall PR in 03/2017 c/b card iogenic shock s/p ECMO in [facility] - troponin peaked to 26 - [facility] on 10/03- severe in-stent stenosis of [...] Mobley will consult with cardiology team at [facility] Re: planning for revascularization 4. Paroxysmal atrial [...] as outlined above. Destinee Trejo 10/07/2017 14:38 [facility] Delmer Mobley MD - 10/07/2017 1207 PSTFormatting [...] RECOMMENDATIONS: Continue current medical management We'll contact [facility] regarding transfer and revascularization plann ing I appreciate the opportunity of participating in the care of this patient. Dlemer Mobley MD, 10/09/2017 12:08 Carlos Graham, PharmD - 10/07/2017 0959 PSTFormatting of this note may be different from t vikash original. IV TO PO PER PHARMACY PROTOCOL [...] 16.0* 16.2* Recent Labs Lab 10/07/17 03510/06/17 0348 10/05/17 0427 10/04/17 0345 10/04/17 0343 [...] orally BID Carlos Graham PharmD 10/07/2017 9:59 [facility] IV TO PO Collaborative Practice Protocol Delmer [...] 75 mg 75 mg Oral BID Anthony Colunga, PharmD 75 mg at 10/06/17 0831 pantoprazole [...] troponin Will consult with cardiology team at [facility] regarding planning for coronary revascularization prior to discharge home I appreciate the opportunity of participating in the care of this patient. Delmer Mobley MD, 10/06/2017 17:17 Destinee Trejo MD - 10/06/2017 1245 PSTFormatting of this note may be different from the original. [facility] PMG Hospitalist Progress Note Bob Hood is a 61 y.o. male INTERVAL HPI: He is a 61 y.o. male with a history of CAD with recent anterior wall PR, post PTCA and sten ts of the left main, LAD and LCx on 03/15/17 + left atrial appendage thrombus c/b cardiac shoc k/respiratory failure requiring Tx to [facility]; was on ECMO, who was a transfer this time from [facility] on 10/03 for acute respiratory failure [...] 95 % on high-flow nasal can nula, computational linguist system, heated at flow rate 14L/min Temp [...] Atrial flutter is now present Confirmed by ZOHRA BREWER, FLORY ([id number]) on 10/06/2017 7:17:27 AM POC Glucose Result [...] of known severe ischemic CAD/recent ant wall PR in 03/2017 c/b card iogenic shock s/p ECMO in [facility] - troponin peaked to 26 - [facility] on 10/03- severe in-stent stenosis of [...] as outlined above. Destinee Trejo 10/06/2017 12:45 [facility] Clinton Burnett MD - 10/05/2017 2117 PSTHospitalist follow-up At approximately 4 PM, there'll [...] 75 mg 75 mg Oral BID Anthony Colunga, PharmD 75 mg at 10/06/17 0831 pantoprazole [...] this patient. Delmer Mobley MD, 10/05/17 Demetra Kirk RN - 10/05/2017 1553 PSTPt had large BM, [...] on this very ill patient. We'll p roceed with upper endoscopy with anesthesia services assisting in monitoring and treating th e patient's 1 dynamics status. Consent form status will be ascertained prior to the procedu re but certainly the patient qualifies for an emergent procedure due to large volume GI blee d in the circumstance of required dual anti platelet therapyClinton Burnett MD - 10/05/2017 0918 PSTFormatting of this note may be different from the original. [facility] PMG Hospitalist Progress Note Bob Hood [...] as outlined above. Clinton Burnett 10/05/2017 9:39 [facility] Portions of this chart may have been created with [employer] voice recognition software. Occasi onal wrong-word or sound-alike substitutions may have occurred due to the inherent canseco itations of voice recognition software. Please read the chart carefully and recognize, using context, where these substitutions have occurred Clinton Burnett MD - 10/04/2017 1241 PSTFormatting of this note may be different from the o riginal. [facility] PMG Hospitalist Progress Note Bob Hood [...] as outlined above. Clinton Burnett 10/04/2017 12:42 [facility] Portions of this chart may have been created with [employer] voice recognition software. Occasi onal wrong-word or [...] MD lactated ringers (LR) infusion Intravenous Continuous Gnaga Lind MD 100 mL/hr a t 10/03/17 [...] :consider ischemia/infarction Confirmed by ZOHRA BREWER, FLORY ([id number]) on 10/04/2017 10:35:54 AM Influenza A PCR [...] 10/03/2017 5.0 5.0 - 8.0 Final Specific [place] 10/03/2017 1.006 1.001 - 1.030 Final PROTEIN [...] acute hypoxic respiratory failure. COMPARISON: 03/15/2017. JUSTIN DINGS: Portable frontal chest radiograph. Endotracheal tube [...] 1 hour is a hazy she is yesterdayKelly Pitts, PharmD - 10/03/20172123 PSTFormatting of this note may be different [...] due to: Intubated X Pharmacy list names: [facility] and [facility] X [employer] insurance reported information X Outside [...] as needed for suspected pain medication overdose Gfjeooq-ycxqcbstnozfr-eldbeuhz 250-250-65 mg tab 1 tab by mouth [...] Prior to Admission Sig: Patient taking differently QUARTZ MOUNTER as: Lisinopril 5 mg tab 15 mg by mouth daily 5 mg by mouth every morning and 10 mg every eveni ng Medication review performed and electronically signed by Melody Falcon, [facility] 20:26 Reviewed by Kelly Pitts, PharmD 10/03/2017 21:22 Delmer Mobley MD - 10/03/2017 9809 PSTCARDIOLOGY FOLLOW-UP PROGRESS NOTE The patient was [...] by: Clarita Ford Chi, PharmD 10/03/2017 11:42 in this encounter Plan of [...] | | | | | | [place] [address] | | | | | | [phone] | | | | | | | | +--------+ + + + + | 12/24/ | Office | Cardiac | Randy Figueroa, | | | 2017 | Visit | Rehabilitation | MD [address] | | | | | | [place], | | | | | | [place] [address] | | | | | | [phone] | | | | | | | | +--------+ + + + + | 12/31/ | Office | Cardiac | Randy Figueroa, | | | 2017 | Visit | Rehabilitation | MD [address] | | | | | | [place], | | | | | | [place] [address] | | | | | | [phone] | | | | | | | | +--------+ + + + + | 01/07/ | Office | Cardiac | Randy Figueroa, | | | 2017 | Visit | Rehabilitation | MD [address] | | | | | | [place], | | | | | | [place] [address] | | | | | | [phone] | | | | | | | | +--------+ + + + + | 01/13/ | Clinical | Cardiology | | | | 2017 | Support | | | | +--------+ + + + + | 01/13/ | Office | Cardiology | Jenny, | | | 2017 | Visit | | [address] | | | | | | [address] [place], | | | | | | [place] [address] | | | | | | [phone] | | | | | | | | +--------+ + + + + | 01/14/ | Office | Cardiac | Randy Figueroa, | | | 2017 | Visit | Rehabilitation | MD [address] | | | | | | [place], | | | | | | [place] [address] | | | | | | [phone] | | | | | | | | +--------+ + + + + | 01/21/ | Office | Cardiac | Randy Figueroa, | | | 2017 | Visit | Rehabilitation | MD [address] | | | | | | [place], | | | | | | [place] [address] | | | | | | [phone] | | | | | | | | +--------+ + + + + | 01/28/ | Office | Cardiac | Randy Figueroa, | | | 2017 | Visit | Rehabilitation | MD [address] | | | | | | [place], | | | | | | [place] [address] | | | | | | [phone] | | | | | | | | +--------+ + + + + | 02/04/ | Office | Cardiac | Randy Figueroa, | | | 2017 | Visit | Rehabilitation | MD [address] | | | | | | [place], | | | | | | [place] [address] | | | | | | [phone] | | | | | | | | +--------+ + + + + | 02/11/ | Office | Cardiac | Randy Figueroa, | | | 2017 | Visit | Rehabilitation | MD [address] | | | | | | [place], | | | | | | [place] [address] | | | | | | [phone] | | | | | | | | +--------+ + + + + | 02/18/ | Office | Cardiac | Randy Figueroa, | | | 2017 | Visit | Rehabilitation | MD [address] | | | | | | [place], | | | | | | [place] [address] | | | | | | [phone] | | | | | | | | +--------+ + + + + | 02/24/ | Procedure | Physical Medicine | Prosper Esteves | | | 2017 | visit | and Rehabilitation | MD [address] | | | | | | [place] | | | | | | [address] | | | | | | | | +--------+ + + + + | 02/25/ | Office | Cardiac | Randy Figueroa, | | | 2017 | Visit | Rehabilitation | MD [address] | | | | | | [place], | | | | | | [place] [address] | | | | | | [phone] | | | | | | | | +--------+ + + + + | 03/04/ | Office | Cardiac | Randy Figueroa, | | | 2017 | Visit | Rehabilitation | MD [address] | | | | | | [place], | | | | | | [place] [address] | | | | | | [phone] | | | | | | | | +--------+ + + + + | 03/11/ | Office | Cardiac | RahulyazshirazLindarahul, | | | 2017 | Visit | Rehabilitation | [address] | | | | | | [place], | | | | | | [place] [address] | | | | | | [phone] | | | | | | | [...] | + + + | Blood | [facility] [address] | | | [place] [address] | + + + POC Glucose (10/10/2017 0636) + +-------+ + | Component | Value | Ref Range | + +-------+ + | Glucose, POC | 108 | 70 - 109 mg/dL | + +-------+ + + + + | Specimen | Performing Laboratory | + + + | Blood | [facility] [address] | | | [place] [address] | + + + POC Glucose (10/09/20172041) + +---------+ + | Component | Value | Ref Range | + +---------+ + | Glucose, POC | 125 (H) | 70 - 109 mg/dL | + +---------+ + + + + | Specimen | Performing Laboratory | + + + | Blood | [facility] [address] | | | [place] [address] | + + + POC Glucose (10/09/2017 1659) + +-------+ + | Component | Value | Ref Range | + +-------+ + | Glucose, POC | 97 | 70 - 109 mg/dL | + +-------+ + + + + | Specimen | Performing Laboratory | + + + | Blood | [facility] [address] | | | [place] [address] | + + + POC Glucose (10/09/2017 1155) + +---------+ + | Component | Value | Ref Range | + +---------+ + | Glucose, POC | 148 (H) | 70 - 109 mg/dL | + +---------+ + + + + | Specimen | Performing Laboratory | + + + | Blood | [facility] [address] | | | [place] [address] | + + + POC Glucose (10/09/2017637) + +-------+ + | Component | Value | Ref Range | + +-------+ + | Glucose, POC | 109 | 70 - 109 mg/dL | + +-------+ + + + + | Specimen | Performing Laboratory | + + + | Blood | [facility] [address] | | | [place] [address] | + + + Extra Lavender Top Tube (10/09/2017 0505) + +-------+ + | Component | Value | Ref Range | + +-------+ + | Extra Lavender Top | Done | | | Tube | | | + +-------+ + + + + | Specimen | Performing Laboratory | + + + | Blood | [facility] [address] | | | [place] [address] | + + + Basic Metabolic Panel [...] GLOMERULAR FILTRATION | >=60 mL/min/1.73m2 | | MONTSERRATIAN | RATE,ESTIMATED mL/min/1.62f4Xwat than | | | | 60 Chronic [...] | + + + | Blood | [facility] [address] | | | [place] [address] | + + + POC Glucose (10/08/20172110) + +---------+ + | Component | Value | Ref Range | + +---------+ + | Glucose, POC | 120 (H) | 70 - 109 mg/dL | + +---------+ + + + + | Specimen | Performing Laboratory | + + + | Blood | [facility] [address] | | | [place] [address] | + + + POC Glucose (10/08/20171656) + +-------+ + | Component | Value | Ref Range | + +-------+ + | Glucose, POC | 96 | 70 - 109 mg/dL | + +-------+ + + + + | Specimen | Performing Laboratory | + + + | Blood | [facility] [address] | | | [place] [address] | + + + POC Glucose (10/08/2017 1115) + +---------+ + | Component | Value | Ref Range | + +---------+ + | Glucose, POC | 146 (H) | 70 - 109 mg/dL | + +---------+ + + + + | Specimen | Performing Laboratory | + + + | Blood | [facility] [address] | | | [place] [address] | + + + POC Glucose (10/08/2017627) + +-------+ + | Component | Value | Ref Range | + +-------+ + | Glucose, POC | 99 | 70 - 109 mg/dL | + +-------+ + + + + | Specimen | Performing Laboratory | + + + | Blood | [facility] [address] | | | [place] [address] | + + + POC Glucose (10/07/20172036) + +---------+ + | Component | Value | Ref Range | + +---------+ + | Glucose, POC | 115 (H) | 70 - 109 mg/dL | + +---------+ + + + + | Specimen | Performing Laboratory | + + + | Blood | [facility] [address] | | | [place] [address] | + + + POC Glucose (10/07/2017 1627) + +---------+ + | Component | Value | Ref Range | + +---------+ + | Glucose, POC | 110 (H) | 70 - 109 mg/dL | + +---------+ + + + + | Specimen | Performing Laboratory | + + + | Blood | [facility] [address] | | | [place] [address] | + + + POC Glucose (10/07/2017 1147) + +---------+ + | Component | Value | Ref Range | + +---------+ + | Glucose, POC | 114 (H) | 70 - 109 mg/dL | + +---------+ + + + + | Specimen | Performing Laboratory | + + + | Blood | [facility] [address] | | | [place] [address] | + + + POC Glucose (10/07/2017 0738) + +-------+ + | Component | Value | Ref Range | + +-------+ + | Glucose, POC | 104 | 70 - 109 mg/dL | + +-------+ + + + + | Specimen | Performing Laboratory | + + + | Blood | [facility] [address] | | | [place] [address] | + + + Magnesium (10/07/2017 0351) + +-------+ + | Component | Value | Ref Range | + +-------+ + | MG | 1.9 | 1.8 - 2.5 mg/dL | + +-------+ + + + + | Specimen | Performing Laboratory | + + + | Blood | [facility] [address] | | | [place] [address] | + + + Basic Metabolic Panel (10/07/2017 0351) + + + + | Component | [...] GLOMERULAR FILTRATION | >=60 mL/min/1.73m2 | | MONTSERRATIAN | RATE,ESTIMATED mL/min/1.04j5Xzbj than | | | | 60 Chronic [...] + + + | Blood | [facility] [address] | | | [place] [address] | + + + CBC with Differential [...] | + + + | Blood | [facility] [address] | | | [place] [address] | + + + POC Blood Gases [...] Laboratory | + + + | | [facility] [address] | | | [place] [address] | + + + XR Chest AP [...] + + + | Blood | [facility] [address] | | | [place] [address] | + + + POC Glucose (10/06/20172040) + +-------+ + | Component | Value | Ref Range | + +-------+ + | Glucose, POC | 101 | 70 - 109 mg/dL | + +-------+ + + + + | Specimen | Performing Laboratory | + + + | Blood | [facility] [address] | | | [place] [address] | + + + Troponin I (10/06/20171751) + + + + | Component | [...] | | | | Yuki Alan. [employer] | | | | Cardiology [...] | + + + | Blood | [facility] [address] | | | [place] [address] | + + + POC Glucose (10/06/2017 1632) + +---------+ + | Component | Value | Ref Range | + +---------+ + | Glucose, POC | 130 (H) | 70 - 109 mg/dL | + +---------+ + + + + | Specimen | Performing Laboratory | + + + | Blood | [facility] [address] | | | [place] [address] | + + + POC Glucose (10/06/20171127) + +---------+ + | Component | Value | Ref Range | + +---------+ + | Glucose, POC | 120 (H) | 70 - 109 mg/dL | + +---------+ + + + + | Specimen | Performing Laboratory | + + + | Blood | [facility] [address] | | | [place] [address] | + + + POC Glucose (10/06/2017831) + +---------+ + | Component | Value | Ref Range | + +---------+ + | Glucose, POC | 110 (H) | 70 - 109 mg/dL | + +---------+ + + + + | Specimen | Performing Laboratory | + + + | Blood | [facility] [address] | | | [place] [address] | + + + XR Chest AP [...] | Sebastian, Rad Results In - 10/06/2017 0837 PST EXAM: [...] 10/06/2017 8:34 AM | + + Magnesium (10/06/2017347) + +-------+ + | Component | Value | Ref Range | + +-------+ + | MG | 1.9 | 1.8 - 2.5 mg/dL | + +-------+ + + + + | Specimen | Performing Laboratory | + + + | Blood | [facility] [address] | | | [place] [address] | + + + Basic Metabolic Panel (10/06/2017347) + + + + | Component | [...] GLOMERULAR FILTRATION | >=60 mL/min/1.73m2 | | [place] | RATE,ESTIMATED mL/min/1.28u4Ykea than | | | | 60 Chronic [...] | + + + | Blood | [facility] [address] | | | [place] [address] | + + + CBC with Differential (10/06/2017347) + + + + | Component | [...] | + + + | Blood | [facility] [address] | | | [place] [address] | + + + POC Glucose (10/05/20172037) + +---------+ + | Component | Value | Ref Range | + +---------+ + | Glucose, POC | 126 (H) | 70 - 109 mg/dL | + +---------+ + + + + | Specimen | Performing Laboratory | + + + | Blood | [facility] [address] | | | [place] [address] | + + + ECG 12 lead [...] | | | | FLORY العلي MD ([id number]) on 10/06/2017 | | | | 7:17:27 [...] FLORY العلي MD | | | | ([id number]) on 10/07/2017 7:10:25 AM | | + + + + + + + | Specimen | Performing Laboratory | + + + | | [facility] | + + + POC Blood Gases (10/05/20171311) + + + + | Component | [...] Laboratory | + + + | | [facility] [address] | | | [place] [address] | + + + IZAIAH (10/05/20171055) + + + | Specimen | Performing Laboratory | + + + | | [facility] | + + + + + | Narrative | + + | Gastroenterology Patient Name: Bob Hood Procedure Date: 10/05/2017 10:56 AM | | Date of : 1955 Admit Type: | | Inpatient Age: 61 Room: [place] [address] Gender: Male Note Status: Finalized Attending MD: | | Terry Weir MD Procedure: Upper GI endoscopy | | Indications: Suspected upper gastrointestinal bleeding | | Providers: Terry Weir MD, Gil Tam RN, Elizabeth Patel | | ALFONSO Rivers, Siddharth Bradley CMA, [place] Campbell | | Babita, Wine Blender, Yong Napier MD (Anesthesia | | Staff) [...] nurse, the anesthesiologist and the | | tool rental technician in the procedure room. Mental Status [...] In: 11:00:34 AM Scope Out: 11:11:30 AM [facility] | | [facility], [address] [place] [address] | + + XR Chest AP Portable [...] + + + | Body Fluid | [facility] [address] | | | [place] [address] | + + + Procalcitonin (10/05/2017 0427) [...] | + + + | Blood | [facility] [address] | | | [place] [address] | + + + Basic Metabolic Panel [...] GLOMERULAR FILTRATION | >=60 mL/min/1.73m2 | | [place]IAN | RATE,ESTIMATED mL/min/1.52c9Gzny than | | | | 60 Chronic [...] + + + | Blood | [facility] [address] | | | [place] [address] | + + + CBC with Differential [...] | + + + | Blood | [facility] [address] | | | [place] [address] | + + + POC Glucose (10/04/20172111) + +-------+ + | Component | Value | Ref Range | + +-------+ + | Glucose, POC | 108 | 70 - 109 mg/dL | + +-------+ + + + + | Specimen | Performing Laboratory | + + + | Blood | [facility] [address] | | | [place] [address] | + + + XR Chest AP Portable (10/04/2017 1915) + + | Narrative | + + [...] + + + | Blood | [facility] [address] | | | [place] [address] | + + + ECG 12 lead [...] | | | | FLORY العلي MD ([id number]) on 10/05/2017 | | | | 7:23:04 [...] + + + | Blood | [facility] [address] | | | [place] [address] | + + + Extra Lavender Top Tube (10/04/2017 1443) + +-------+ + | Component | Value | Ref Range | + +-------+ + | Extra Lavender Top | Done | | | Tube | | | + +-------+ + + + + | Specimen | Performing Laboratory | + + + | Blood | [facility] [address] | | | [place] [address] | + + + Troponin I (10/04/2017 144) + + + + | Component | Value | Ref Range | + + + + | Troponin I | 9.32 ()Comment: Reference | <0.06 ng/mL | | | Ranges:0.00-0.06 = NORMAL>0.06 = | | | | SUSPICIOUS FOR MYOCARDIAL DAMAGE NOTE: | | | | Values greater than 0.50 ng/mL have been | | | | shown to be strongly associated with acute | | | | myocardial infarction. Consistent with | | | | previous results. [employer] [place] | | | | Cardiology [...] | + + + | Blood | [facility] [address] | | | [place] [address] | + + + Blood Gas, Arterial [...] + + + | Blood | [facility] [address] | | | [place] [address] | + + + + + | Narrative | + + | SIMV 16 TV 550, PS+ 10, PEEP +5, 40%, ETCO2 35 EMH913% | + + POC Glucose (10/04/2017 1223) + +-------+ + | Component | Value | Ref Range | + +-------+ + | Glucose, POC | 106 | 70 - 109 mg/dL | + +-------+ + + + + | Specimen | Performing Laboratory | + + + | Blood | [facility] [address] | | | [place] [address] | + + + CBC with Differential [...] | + + + | Blood | [facility] [address] | | | [place] [address] | + + + Magnesium (10/04/2017 0343) + +-------+ + | Component | Value | Ref Range | + +-------+ + | MG | 1.9 | 1.8 - 2.5 mg/dL | + +-------+ + + + + | Specimen | Performing Laboratory | + + + | Blood | [facility] [address] | | | [place] [address] | + + + Basic Metabolic Panel [...] GLOMERULAR FILTRATION | >=60 mL/min/1.73m2 | | MONTSERRATIAN | RATE,ESTIMATED mL/min/1.40p1Ddng than | | | | 60 Chronic [...] | + + + | Blood | [facility] [address] | | | [place] [address] | + + + Troponin I (10/03/2017 [...] | | | | previous results. [employer] | | | | Cardiology [...] | + + + | Blood | [facility] [address] | | | [place] [address] | + + + POC Glucose (10/03/20172145) + +---------+ + | Component | Value | Ref Range | + +---------+ + | Glucose, POC | 115 (H) | 70 - 109 mg/dL | + +---------+ + + + + | Specimen | Performing Laboratory | + + + | Blood | [facility] [address] | | | [place] [address] | + + + Basic Metabolic Panel (10/03/20171850) + + + + | Component | [...] GLOMERULAR FILTRATION | >=60 mL/min/1.73m2 | | MONTSERRATIAN | RATE,ESTIMATED mL/min/1.42d1Uwqi than | | | | 60 Chronic [...] | + + + | Blood | [facility] [address] | | | [place] [address] | + + + Procalcitonin (10/03/2017 1545) + + + + | Component | Value | Ref Range | + + + + | Procalcitonin | 3.53 ()Comment: Critical Result called to | <=0.50 ng/mL | | | and read back by Demetra Arreola on | | | | 10/03/2017 at 17:15 by Juan Srinivasan. | | | | | | | | | | + + + + + + + | Specimen | Performing Laboratory | + + + | Blood | [facility] [address] | | | [place] [address] | + + + Troponin I (10/03/2017 [...] Juan Srinivasan. | | | | [employer] [place] [employer] ([employer]) | | | [...] | + + + | Blood | [facility] [address] | | | [place] [address] | + + + CV CARDIAC PROCEDURE (10/03/2017 1518) + + | Narrative | + + | Delmer Dai MD 10/03/2017 16:25 CARDIAC CATHETERIZATION REPORT DATE | | OF PROCEDURE: 10/03/17 PRECATHETERIZATION INFORMED CONSENT : Yes | | TIMEOUT Before start of procedure done: Yes CHAINSTITCH TUNNEL ELASTIC OPERATOR: Delmer Mobley M.D., | | Shannon PRIMARY PHYSICIAN: Chato Matson MD PROCEDURES PERFORMED: Left | | heart catheterization, selective coronary arteriography INDICATIONS | | : 61-year-old gentleman presenting with acute hypoxic respiratory failure, new left | | bundle branch block, increasing troponin levels, history of coronary artery PCI and | | prior anterior myocardial infarction ARTERIAL ACCESS: Right femoral artery 6 [place] | | CLOSURE DEVICE:. Sheath left in [...] Seldinger technique and a 6 | | [place] sheath was inserted. Selective coronary arteriography was performed using 6 | | [place] Kymberly right 4 and left 4 catheters. [...] instability we will transfer the patient to [place] for consideration of | | urgent coronary revascularization. Delmer Mobley M.D., F.A.C.C. | | Chief Of Party [place], [place] | | | + + Culture, Blood (10/03/2017 1315) + + + + | Component | Value | Ref Range | + + + + | Culture | No growth after 5 days incubation. | | + + + + + + + | Specimen | Performing Laboratory | + + + | Blood - Peripheral | [facility] [address] | | Blood | [place] [address] | + + + ECG 12 lead [...] ZOHRA BREWER, | | | | FLORY ([id number]) on 10/04/2017 10:35:54 AM | | | [...] | + + + | Blood | [facility] [address] | | | [place] [address] | + + + XR Chest AP [...] + + | Blood - Line | [facility] [address] | | | [place] [address] | + + + Slide Review, Peripheral Smear (10/03/20171128) + +--------+ + | Component | Value | Ref Range | + +--------+ + | RBC MORPHOLOGY | Normal | | + +--------+ + | WBC MORPHOLOGY | Normal | | + +--------+ + | PLT MORPHOLOGY | Normal | | + +--------+ + + + + | Specimen | Performing Laboratory | + + + | Blood | [facility] [address] | | | [place] [address] | + + + + + | [...] | + + + | Blood | [facility] [address] | | | [place] [address] | + + + Troponin I (10/03/2017 1129) + + + + | [...] | | | | myocardial infarction. [employer] [place] | | | | of Cardiology [...] | + + + | Blood | [facility] [address] | | | [place] [address] | + + + B Type Natriuretic Peptide (10/03/20171128) + +---------+ + | Component | Value | Ref Range | + +---------+ + | BNP | 495 (H) | <100 pg/mL | + +---------+ + + + + | Specimen | Performing Laboratory | + + + | Blood | [facility] [address] | | | [place] [address] | + + + Hepatic Function Panel [...] | + + + | Blood | [facility] [address] | | | [place] [address] | + + + Protime INR (10/03/20171128) + + + + | Component [...] | + + + | Blood | [facility] [address] | | | [place] [address] | + + + Basic Metabolic Panel [...] GLOMERULAR FILTRATION | >=60 mL/min/1.73m2 | | [place]IAN | RATE,ESTIMATED mL/min/1.23u6Gyor than | | | | 60 Chronic [...] + + + | Blood | [facility] [address] | | | [place] [address] | + + + CBC with Differential (10/03/2017 1129) + + + + | [...] + + + | Blood | [facility] [address] | | | [place] [address] | + + + ECHO Complete (10/03/2017 1118) + +-------+ + | Component | Value | Ref Range | + +-------+ + | LVEF-TTE | 39 | | | TRANSTHORACIC ECHO | | | + +-------+ + + + | Narrative | + + | Transthoracic Echocardiography Report (TTE) Demographics Patient | | Name MIKE VELASQUEZ Room Number 458 | | J Patient [id number] Date of | | Study 10/03/2017 Number Visit Number [id number] | | Referring Physician BENEDICT RAYGOZA Number | | Date of 1955 Bus Aide WILBERT | | RAJIV LORENZO Age 61 year(s) | | Interpreting DELMER MOBLEY MD, | | Healthcare Account Manager | | [facility] 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 | | Procedure Type of Study TTE [...] | Electronically signed by DELMER MOBLEY MD, [facility](Interpreting physician) on | | 10/03/2017 12:59 PM [...] 42.65 ml | | | | EF Hbqncabgw52% Left Ventricle Diastolic Dimension: 5.92 cm Septum [...] | J | | | | Patient [id number] Date of Study 10/03/2017 | | Number | | | | Visit Number [id number] | | | | Referring Physician BENEDICT RAYGOZA | | Number | | | | Date of 1955 Bus Aide WILBERT [address] | | | | Age 61 year(s) Interpreting DELMER MOBLEY MD, | | Healthcare Account Manager FAC | | | | Gender Male 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 | | | | 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 Wine 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 | | | | Procedure | | [...] | Electronically signed by DELMER MOBLEY MD, [facility](Interpreting | | physician) on 10/03/2017 12:59 PM [...] LA Volume: 42.65 ml | | EF Rkfcypseq67% | | | | Left Ventricle | | | | Diastolic Dimension: 5.92 cm | | Septum Diastolic: 1.14 cm | | PW Diastolic: 1.1 cm | | EF Calculated: 39% | | | | Miscellaneous | | | | Aorta | | | | Aortic Root: 3.38 cm | | Ascending Aorta: 3.33 cm | + + Blood Gas, Arterial (10/03/2017 1040) + + + + | Component | [...] | + + + | Blood | [facility] [address] | | | [place] [address] | + + + Culture, MRSA (10/03/2017 1039) + + + + | Component | Value | Ref Range | + + + + | Culture | Negative for MRSA by chromogenic agar | | | | method | | + + + + + + + | Specimen | Performing Laboratory | + + + | Stool | [facility] [address] | | | [place] [address] | + + + Culture, Respiratory, Lower, [...] + + + | Respiratory - | [facility] [address] | | Sputum, expectorated | [place] [address] | + + + Influenza A and [...] + + + | Respiratory - | [facility] [address] | | Nasopharynx | [place] [address] | + + + Campylobacter Ag,Qual (10/03/2017 1039) + + + + | Component | Value | Ref Range | + + + + | Campylobacter AG, | Negative | Negative | | Qual | | | + + + + + + + | Specimen | Performing Laboratory | + + + | Stool | [facility] [address] | | | [place] [address] | + + + Culture, Stool Result [...] | + + + | Stool | [facility] [address] | | | [place] [address] | + + + Shigatoxin 1 and [...] + + + | Stool | [facility] [address] | | | [place] [address] | + + + Culture, Stool (10/03/2017 1039) + + + | Specimen | Performing Laboratory | + + + | Stool | [facility] [address] | | | [place] [address] | + + + + + | Narrative | + + | The following orders were created for panel order Culture, Stool. | | Procedure | | Abnormality Status | | --------- | | ------ Shigatoxin 1 | | and 2[[id number]] Normal Final | | result Culture, Stool | | Result[[id number]] Final | | result Campylobacter | | Ag,Qual[[id number]] Normal Final | | result Please view [...] | + + + | Stool | [facility] [address] | | | [place] [address] | + + + Ova and Parasite [...] Stool | REFERENCE LAB [facility] [address] [facility] | | | [place] [address] | + + + + + | Narrative | + + | Performed at: [address] [id number] Lab | | Director: Yesenia Gee MD, Phone: [phone] | + + Fecal leukocytes (10/03/2017 1039) + + + + | Component | Value | Ref Range | + + + + | Lactoferrin, Qual | Negative | Negative | + + + + + + + | Specimen | Performing Laboratory | + + + | Stool | [facility] [address] | | | [place] [address] | + + + Urinalysis with Microscopic [...] | + + + + | Specific [place] | 1.006 | 1.001 - 1.030 | [...] | + + + | Urine | [facility] [address] | | | [place] [address] | + + + LABS - EXTERNAL [...] | Diagnosis | + + | Acute upper GI bleeding | + + | Hemorrhage of gastrointestinal tract, unspecified | + + Admitting Diagnoses + + | Diagnosis | + + | Pulmonary edema - pulmonary edema | + + | Pulmonary congestion and hypostasis | + + | Acute upper GI bleeding - Chest Pain | + + | Hemorrhage of gastrointestinal tract, unspecified | + + | Acute upper GI bleeding [K92.2] | + + Administered Medications + +--------+ +-------+------+------+ | Medication Order | MAR | Action | Dose | Rate | Site | | | Action | Date | | | | + +--------+ +-------+------+------+ | albuterol-ipratropium (DUONEB) | Given | 10/10/2017 [...] +--------+ +-------+------+------+ +-------+ +-------+---+---+ | Given | 10/10/2017 | [...] | | | | First dose on [facility] 10/08/17 at 0915 | | | [...] scheduled: AC, | | | NPO, Daytime 6112-2197 Use NIGHT | | | DOSE for doses scheduled: | | | HS, 3AM, Nighttime 0077-0138 | | + +---+ | | | [...] | | | + +---+ + +-------+ +---+---+---+ | nystatin (MYCOSTATIN) powder [...] +-------+ +-------+---+---+ +---+---+ | | | +---+---+ in this encounter"
--- OUTSIDE RECORDS SUMMARY | ~2017-12-16 | XMS | Encounter Summary ---
Demographics + + + | Address | [address] | | | [place] [address] | + + + | Home Phone | | + + + | Preferred Language | Unknown | + + + | Marital Status | | + + + | Catholic Affiliation | NRP | + + + | Race | White | + + + | Ethnic Group | Not or | + + + Author + + + | Author | [facility] | + + + | Organization | [facility] | + + + | Address | Unknown | + + + | Phone | Unavailable | + + + Support + + + + + | Name | Relationship | Address | Phone | + + + + + | ANNA MCKEON | ECON | [address] | | | | | [place] [address] | | + + + + + Care Team Providers + +------+ + | Care Hardness Tester Name | Role | Phone | [...] Pharmacy | | | | | | [address] | | | | | | [facility] | | | | | | [place], [place] | | | | | | [address] | | | +--------+ + + + [...]
--- OUTSIDE RECORDS SUMMARY | ~2017-12-16 | XMS | Encounter Summary ---
Demographics + + + | Address | [address] | | | [place] [address] | + + + | Home Phone [...] + | Author | [facility] | | | and [place] | + + + | Organization | [facility] | | | and [place] | + + + | Address | Unknown | + + + | Phone | Unavailable | + + + Support + + + + + | Name | Relationship | Address | Phone | + + + + + | Venice Will | ECON | [address] | | | | | [address] | | | | | [address] | | + + + + + Care Team Providers + +------+ + | Care Golf Club Head Inspector And Adjuster Name | Role | Phone | + +------+ + | Chato Matson MD | PCP | | + +------+ + Encounter Details +--------+ + + + + | Date | Type | Department | Care Team | Description | +--------+ + + + + | 10/03/ | Procedure | [facility] | | | | 2018 | Pass | [facility] | | | | | | [address] | | | | | | [place] | | | | | | [address] | | | | | | [phone] | | | +--------+ + + + [...] | | | | | | [place] [address] | | | | | | [phone] | | | | | | | | +--------+ + + + + | 12/24/ | Office | Cardiac | Randy Figueroa, | | | 2017 | Visit | Rehabilitation | MD [address] | | | | | | [place], | | | | | | [place] [address] | | | | | | [phone] | | | | | | | | +--------+ + + + + | 12/31/ | Office | Cardiac | Randy Figueroa, | | | 2017 | Visit | Rehabilitation | MD [address] | | | | | | [place], | | | | | | [place] [address] | | | | | | [phone] | | | | | | | | +--------+ + + + + | 01/07/ | Office | Cardiac | Randy Figueroa, | | | 2017 | Visit | Rehabilitation | MD [address] | | | | | | [place], | | | | | | [place] [address] | | | | | | [phone] | | | | | | | [...] | | | | | | [place] [address] | | | | | | [phone] | | | | | | | | +--------+ + + + + | 01/14/ | Office | Cardiac | Randy Figueroa, | | | 2017 | Visit | Rehabilitation | MD [address] | | | | | | [place], | | | | | | [place] [address] | | | | | | [phone] | | | | | | | | +--------+ + + + + | 01/21/ | Office | Cardiac | Randy Figueroa, | | | 2017 | Visit | Rehabilitation | MD [address] | | | | | | [place], | | | | | | [place] [address] | | | | | | [phone] | | | | | | | | +--------+ + + + + | 01/28/ | Office | Cardiac | Randy Figueroa, | | | 2017 | Visit | Rehabilitation | MD [address] | | | | | | [place], | | | | | | [place] [address] | | | | | | [phone] | | | | | | | | +--------+ + + + + | 02/04/ | Office | Cardiac | Randy Figueroa, | | | 2017 | Visit | Rehabilitation | MD [address] | | | | | | [place], | | | | | | [place] [address] | | | | | | [phone] | | | | | | | | +--------+ + + + + | 02/11/ | Office | Cardiac | Randy Figueroa, | | | 2017 | Visit | Rehabilitation | MD [address] | | | | | | [place], | | | | | | [place] [address] | | | | | | [phone] | | | | | | | | +--------+ + + + + | 02/18/ | Office | Cardiac | Randy Figueroa, | | | 2017 | Visit | Rehabilitation | MD [address] | | | | | | [place], | | | | | | [place] [address] | | | | | | [phone] | | | | | | | | +--------+ + + + + | 02/24/ | Procedure | Physical Medicine | Prosper Esteves | | | 2017 | visit | and Rehabilitation | MD [address] | | | | | | [place] | | | | | | [address] | | | | | | | | +--------+ + + + + | 02/25/ | Office | Cardiac | Randy Figueroa, | | | 2017 | Visit | Rehabilitation | MD [address] | | | | | | [place], | | | | | | [place] [address] | | | | | | [phone] | | | | | | | | +--------+ + + + + | 03/04/ | Office | Cardiac | Randy Figueroa, | | | 2017 | Visit | Rehabilitation | MD [address] | | | | | | [place], | | | | | | [place] [address] | | | | | | [phone] | | | | | | | | +--------+ + + + + | 03/11/ | Office | Cardiac | Randy Figueroa, | | | 2017 | Visit | Rehabilitation | MD [address] | | | | | | [place], | | | | | | [place] [address] | | | | | | [phone] | | | | | | | | +--------+ + + + + as of this encounter Visit Diagnoses Not on filein this encounter"
--- OUTSIDE RECORDS SUMMARY | ~2017-12-16 | XMS | Encounter Summary ---
Demographics + + + | Address | [address] | | | [place] [address] | + + + | Home Phone [...] + | Author | [facility] | | | and [place] | + + + | Organization | [facility] | | | and [place] | + + + | Address | Unknown | + + + | Phone | Unavailable | + + + Support + + + + + | Name | Relationship | Address | Phone | + + + + + | [place] Will | ECON | [address] | | | | | #[place] | | | | | [address] | | + + + + + Care Team Providers + +------+ + | Care Outpatient Receptionist Name | Role | Phone | + [...] | 11/12/ | Implant | [facility] [place] | Rahullindacathy Lindarahul, | Implantable | | 2018 | Monitor | CARDIOLOGY [address] | [address] [place] | defibrillator | | | | [place], | [place], | reprogramming/check | | | | [place] [address] | [place] [address] | (Primary Dx); SPRAY RIG OPERATOR-D | | | | [phone] | [phone] | (AICD) [employer] | | | | | | 10/16/17 [facility]; | | | | | | [...] | | | | | | [place] [address] | | | | | | [phone] | | | | | | | | +--------+ + + + + | 12/24/ | Office | Cardiac | Randy Figueroa, | | | 2017 | Visit | Rehabilitation | MD Javid [address] | | | | | | [place], | | | | | | [place] [address] | | | | | | [phone] | | | | | | | | +--------+ + + + + | 12/31/ | Office | Cardiac | Randy Figueroa, | | | 2017 | Visit | Rehabilitation | MD Jav[address] | | | | | | [place], | | | | | | [place] [address] | | | | | | [phone] | | | | | | | | +--------+ + + + + | 01/07/ | Office | Cardiac | Randy Figueroa, | | | 2017 | Visit | Rehabilitation | MD [address] | | | | | | [place], | | | | | | [place] [address] | | | | | | [phone] | | | | | | | [...] [place], | | | | | | [place] [address] | | | | | | [phone] | | | | | | | | +--------+ + + + + | 01/14/ | Office | Cardiac | Randy Figueroa, | | | 2017 | Visit | Rehabilitation | MD [address] [place] | | | | | | [place], | | | | | | [place] [address] | | | | | | [phone] | | | | | | | | +--------+ + + + + | 01/21/ | Office | Cardiac | Randy Figueroa, | | | 2017 | Visit | Rehabilitation | MD [address] [place] | | | | | | [place], | | | | | | [place] [address] | | | | | | [phone] | | | | | | | | +--------+ + + + + | 01/28/ | Office | Cardiac | Randy Figueroa, | | | 2017 | Visit | Rehabilitation | MD [address] [place] | | | | | | [place], | | | | | | [place] [address] | | | | | | [phone] | | | | | | | | +--------+ + + + + | 02/04/ | Office | Cardiac | Randy Figueroa, | | | 2017 | Visit | Rehabilitation | MD [address] | | | | | | [place], | | | | | | [place] [address] | | | | | | [phone] | | | | | | | | +--------+ + + + + | 02/11/ | Office | Cardiac | Randy Figueroa, | | | 2017 | Visit | Rehabilitation | MD [address] | | | | | | [place], | | | | | | [place] [address] | | | | | | [phone] | | | | | | | | +--------+ + + + + | 02/18/ | Office | Cardiac | Randy Figueroa, | | | 2017 | Visit | Rehabilitation | MD [address] | | | | | | [place], | | | | | | [place] [address] | | | | | | [phone] | | | | | | | | +--------+ + + + + | 02/24/ | Procedure | Physical Medicine | Prosper Esteves | | | 2017 | visit | and Rehabilitation | MD [address] | | | | | | [place] | | | | | | [address] | | | | | | | | +--------+ + + + + | 02/25/ | Office | Cardiac | Randy Figueroa, | | | 2017 | Visit | Rehabilitation | MD Jav[address]respo | | | | | | [place], | | | | | | [place] [address] | | | | | | [phone] | | | | | | | | +--------+ + + + + | 03/04/ | Office | Cardiac | Randy Figueroa, | | | 2017 | Visit | Rehabilitation | MD Javid Crespo | | | | | | [place], | | | | | | [place] [address] | | | | | | [phone] | | | | | | | | +--------+ + + + + | 03/11/ | Office | Cardiac | Carolina Lindarahul, | | | 2017 | Visit | Rehabilitation | [address] [place] | | | | | | [place], | | | | | | [place] [address] | | | | | | [phone] | | | | | | | | +--------+ + + + + as of this encounter Results Device Interrogation - Remote (11/12/2017 1209) + + + | Specimen | Performing Laboratory | + + + | | [facility] | + + + + + | Narrative | + + | Randy Figueroa MD 11/16/2017 17:06 Refer to [facility] documentation and | | remote PDF scanned into [employer] for remote interrogation results. Data collected by | | Kelly Rodriguez RN Presenting rhythm: sinus rhythm, atrial sensed ventricular paced | | at 89-92 beats. 0 mode switch episodes accounting for 0% of the time. No episodes. | | No tachycardia therapies recommended or delivered. Biventricular pacing 98.6% PVC | | singles 0.2/hour PVC runs 0.0/hour Histogram good. Battery | | longevity 9.9 years. Apparent normal and stable device function. Device | | interrogation due in office in January 2018. This report occurred within the global period | | following pacemaker implantation and therefore is not billable. | + + in this encounter Visit Diagnoses + + | Diagnosis | + + | Implantable defibrillator reprogramming/check - Primary | + + | Fitting and adjustment of automatic implantable cardiac defibrillator | + + | SPRAY RIG OPERATOR-D Diallo (AICD) 10/16/17 [facility] Darby | + + | Ischemic cardiomyopathy | + + | Other specified forms of chronic ischemic heart disease | + +"
--- OUTSIDE RECORDS SUMMARY | ~2017-12-16 | XMS | Encounter Summary ---
Demographics + + + | Address | [address] | | | [place] [address] | + + + | Home Phone [...] [facility] | | | and [place] | + + + | Organization | [facility] | | | and [place] | + + + | Address | Unknown | + + + | Phone | Unavailable | + + + Support + + + + + | Name | Relationship | Address | Phone | + + + + + | [place] Will | ECON | [address] | | | | | #[place] | | | | | [address] | | + + + + + Care Team Providers + +------+ + | Care Final Expense Agent Name | Role | Phone | [...] Description | +--------+--------+ + + + | 11/10/ | Refill | [facility] [place] | Jenny, | Medication Refill | | 2017 | | CARDIOLOGY [address] | Hansa TUBE LASER OPERATOR [address] | | | | | [place], | [place], | | | | | [place] [address] | [place] [address] | | | | | [phone] | [phone] | | | | | | | | +--------+--------+ + + + Social History + +-------+ [...] Visit | Rehabilitation | MD [address] [place] | | | | | | [place], | | | | | | [place] [address] | | | | | | [phone] | | | | | | | | +--------+ + + + + | 12/24/ | Office | Cardiac | Randy Figueroa, | | | 2017 | Visit | Rehabilitation | MD [address] [place] | | | | | | [place], | | | | | | [place] [address] | | | | | | [phone] | | | | | | | | +--------+ + + + + | 12/31/ | Office | Cardiac | Randy Figueroa, | | | 2017 | Visit | Rehabilitation | MD [address] [place] | | | | | | [place], | | | | | | [place] [address] | | | | | | [phone] | | | | | | | | +--------+ + + + + | 01/07/ | Office | Cardiac | Randy Figueroa, | | | 2017 | Visit | Rehabilitation | [address] | | | | | | [place], | | | | | | [place] [address] | | | | | | [phone] | | | | | | | [...] [place], | | | | | | [place] [address] | | | | | | [phone] | | | | | | | | +--------+ + + + + | 01/14/ | Office | Cardiac | Randy Figueroa, | | | 2017 | Visit | Rehabilitation | MD [address] [place] | | | | | | [place], | | | | | | [place] [address] | | | | | | [phone] | | | | | | | | +--------+ + + + + | 01/21/ | Office | Cardiac | Randy Figueroa, | | | 2017 | Visit | Rehabilitation | MD [address] [place] | | | | | | [place], | | | | | | [place] [address] | | | | | | [phone] | | | | | | | | +--------+ + + + + | 01/28/ | Office | Cardiac | Randy Fgiueroa, | | | 2017 | Visit | Rehabilitation | MD [address] [place] | | | | | | [place], | | | | | | [place] [address] | | | | | | [phone] | | | | | | | | +--------+ + + + + | 02/04/ | Office | Cardiac | Randy Figueroa, | | | 2017 | Visit | Rehabilitation | MD [address] [place] | | | | | | [place], | | | | | | [place] [address] | | | | | | [phone] | | | | | | | | +--------+ + + + + | 02/11/ | Office | Cardiac | Randy Figueroa, | | | 2017 | Visit | Rehabilitation | MD [address] [place] | | | | | | [place], | | | | | | [place] [address] | | | | | | [phone] | | | | | | | | +--------+ + + + + | 02/18/ | Office | Cardiac | Randy Figueroa, | | | 2017 | Visit | Rehabilitation | MD [address] [place] | | | | | | [place], | | | | | | [place] [address] | | | | | | [phone] | | | | | | | | +--------+ + + + + | 02/24/ | Procedure | Physical Medicine | Prosper Esteves | | | 2017 | visit | and Rehabilitation | MD [address] | | | | | | [facility] [place] [facility] [place] | | | | | | [address] | | | | | | | | +--------+ + + + + | 02/25/ | Office | Cardiac | Randy Figueroa, | | | 2017 | Visit | Rehabilitation | MD [address]av[address] | | | | | | [place], | | | | | | [place] [address] | | | | | | [phone] | | | | | | | | +--------+ + + + + | 03/04/ | Office | Cardiac | Randy Figueroa, | | | 2017 | Visit | Rehabilitation | MD [address] | | | | | | [place], | | | | | | [place] [address] | | | | | | [phone] | | | | | | | | +--------+ + + + + | 03/11/ | Office | Cardiac | Randy Figueroa, | | | 2017 | Visit | Rehabilitation | MD [address] | | | | | | [place], | | | | | | [place] [address] | | | | | | [phone] | | | | | | | | +--------+ + + + + as of this encounter Visit Diagnoses Not on filein this encounter"
--- OUTSIDE RECORDS SUMMARY | ~2017-12-16 | XMS | Encounter Summary ---
Demographics + + + | Address | [address] | | | [place] [address] | + + + | Home Phone | | + + + | Preferred Language | Unknown | + + + | Marital Status | | + + + | Congregation Affiliation | Unknown | + + + | Race | Unknown | + + + | Ethnic Group | Unknown | + + + Author + + + | Author | [facility] | | | and [place] | + + + | Organization | [facility] | | | and [place] | + + + | Address | Unknown | + + + | Phone | Unavailable | + + + Support + + + + + | Name | Relationship | Address | Phone | + + + + + | [place] Will | ECON | [address] | | | | | #[place] | | | | | [address] | | + + + + + Care Team Providers + +------+ + | Care Shipping Room Supervisor Name | Role | Phone | [...] + + | 11/26/ | [facility] | [facility] | Randy Figueroa, | Coronary artery | | 2018 | Visit | [facility] CARDIAC | MD [address] | disease involving | | | | REHABILITATION [address] | [place], | [place] coronary | | | | [address] [place] | [place] [address] | artery of [place] | | | | [place] [address] | [phone] | heart without angina | | | | [phone] | | pectoris (Primary | | | [...] + as of this encounter Progress Cheri Mchugh, BARRON - 11/26/2017 0900 PDTFormatting of this note may be differ ent from the original. [facility] [address] [place] [address] Cardiac Rehab Date: 11/26/2017 Patient Information Patient Name: Bob Will Date of : 1955 Age: 62 y.o. Encounter Diagnoses Code Name Primary? I25.10 Coronary 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 involving cap[place] coronary artery of [place] heart without angina pectoris Yes Number of [...] en ded up in the hospital in [place], [place]. Spent multiple days there. Any abnormal vital signs or rhythm strips will be reported in progress note. Electronically signed by: Cheri Harvey RRT, 11/26/2017 12:22 Patient Name: Bob Will/: 1955/ in this [...] [place], | | | | | | [place] [address] | | | | | | [phone] | | | | | | | | +--------+ + + + + | 12/24/ | Office | Cardiac | Randy Figueroa, | | | 2017 | Visit | Rehabilitation | MD [address] | | | | | | [place], | | | | | | [place] [address] | | | | | | [phone] | | | | | | | | +--------+ + + + + | 12/31/ | Office | Cardiac | Randy Figueroa, | | | 2017 | Visit | Rehabilitation | MD [address] | | | | | | [place], | | | | | | [place] [address] | | | | | | [phone] | | | | | | | | +--------+ + + + + | 01/07/ | Office | Cardiac | Randy Figueroa, | | | 2017 | Visit | Rehabilitation | MD [address] | | | | | | [place], | | | | | | [place] [address] | | | | | | [phone] | | | | | | | [...] | | | | | | [place] [address] | | | | | | [phone] | | | | | | | | +--------+ + + + + | 01/14/ | Office | Cardiac | Randy Figueroa, | | | 2017 | Visit | Rehabilitation | MD [address] | | | | | | [place], | | | | | | [place] [address] | | | | | | [phone] | | | | | | | | +--------+ + + + + | 01/21/ | Office | Cardiac | Randy Figueroa, | | | 2017 | Visit | Rehabilitation | MD [address] | | | | | | [place], | | | | | | [place] [address] | | | | | | [phone] | | | | | | | | +--------+ + + + + | 01/28/ | Office | Cardiac | Randy Figueroa, | | | 2017 | Visit | Rehabilitation | MD [address] | | | | | | [place], | | | | | | [place] [address] | | | | | | [phone] | | | | | | | | +--------+ + + + + | 02/04/ | Office | Cardiac | Randy Figueroa, | | | 2017 | Visit | Rehabilitation | MD [address] | | | | | | [place], | | | | | | [place] [address] | | | | | | [phone] | | | | | | | | +--------+ + + + + | 02/11/ | Office | Cardiac | Randy Figueroa, | | | 2017 | Visit | Rehabilitation | MD [address] | | | | | | [place], | | | | | | [place] [address] | | | | | | [phone] | | | | | | | | +--------+ + + + + | 02/18/ | Office | Cardiac | Randy Figueroa, | | | 2017 | Visit | Rehabilitation | MD [address] | | | | | | [place], | | | | | | [place] [address] | | | | | | [phone] | | | | | | | | +--------+ + + + + | 02/24/ | Procedure | Physical Medicine | Prosper Esteves | | | 2017 | visit | and Rehabilitation | MD [address] | | | | | | [place] | | | | | | [address] | | | | | | | | +--------+ + + + + | 02/25/ | Office | Cardiac | Randy Figueroa, | | | 2017 | Visit | Rehabilitation | MD [address] | | | | | | [place], | | | | | | [place] [address] | | | | | | [phone] | | | | | | | | +--------+ + + + + | 03/04/ | Office | Cardiac | Randy Figueroa, | | | 2017 | Visit | Rehabilitation | MD [address] | | | | | | [place], | | | | | | [place] [address] | | | | | | [phone] | | | | | | | | +--------+ + + + + | 03/11/ | Office | Cardiac | Randy Figueroa, | | | 2017 | Visit | Rehabilitation | MD [address] | | | | | | [place], | | | | | | [place] [address] | | | | | | [phone] | | | | | | | | +--------+ + + + + as of this encounter Visit Diagnoses + + | Diagnosis | + + | Coronary 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 involving cap[place] band coronary artery of cap[place] heart without angina | | pectoris - Primary | + +"
--- OUTSIDE RECORDS SUMMARY | ~2017-12-16 | XMS | Encounter Summary ---
Demographics + + + | Address | [address] | | | [place] [address] | + + + | Home Phone | | + + + | Preferred Language | Unknown | + + + | Marital Status | | + + + | Sikh Affiliation | NRP | + + + | Race | White | + + + | Ethnic Group | Not or | + + + Author + + + | Author | [facility] | + + + | Organization | [facility] | + + + | Address | Unknown | + + + | Phone | Unavailable | + + + Support + + + + + | Name | Relationship | Address | Phone | + + + + + | ANNA MCKEON | ECON | [address] | | | | | [place] [address] | | + + + + + Care Team Providers + +------+ + | Care Site Promotion Agent Name | Role | Phone | [...] | | 2018 | | Services at [facility] | [place], [place] | Exam | | | | [address] [facility] | [address] | | | | | [facility] | | | | | | Mailcode: [id number] | | | | | | [facility] | | | | | | [place], [place] | | | | | | [address] | | | | | | [phone] | | | +--------+ + + + [...]
--- OUTSIDE RECORDS SUMMARY | ~2017-12-16 | XMS | Encounter Summary ---
Demographics + + + | Address | [address] | | | [place] [address] | + + + | Home Phone [...] | | | | | [place] [address] | | + + + + + Care Team Providers + +------+ + | Care Galvanizer Zinc Name | Role | Phone | + [...] | | | | | (HCC) | [place], [place] | for Health | | | | | Stenosis of | [phone] | and Healing | | | | | coronary | Phone: | [place], [place] | | | | | artery | [phone] | [address] | | | | | stent, | Fax: | Phone: | | | | | initial | [phone] | [phone] | | | | | encounter | | Fax: | | | | | Procedures | | [phone] | | | | | CONSULT TO [...] + + | 10/10/ | Hospital | [address] | Khurram Bedoya | | | 2018 - | Encounter | [address] | MD K[address] | | | | | [address] [place] [address] | [address] | | | 10/17/ | | [place], [place] | [place], [place] | | | 2018 | | [address] | [phone] | | | | | [phone] | [phone] | | | | | | | [...] Referring Physician & Institution: Other Dictation Primary/Outpatient Applications Consultant: Dr Jamal Guerrero MD Inpatient Attending Physician: Khurram Bedoya MD Author/Discharging Provider: LALA SCHOFIELD PA-C Admission Date: 10/10/2017 Discharge Date: 10/17/2017 Active Hospital Problems 1) *NSTEMI (non-ST elevated myocardial infarction) (HCC) 2) Coronary 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 3) Stenosis of coronary artery stent 4) Ischemic cardiomyopathy 5) Chronic systolic congestive heart failure (HCC) 7) Encounter for insertion of cardiac resynchronization therapy defibrillator (LINUX SYSTEM ADMINISTRATOR-D) 8) Paroxysmal atrial flutter (HCC) 9) Influenza, [...] 1) EP study with VT induction 2) LINUX SYSTEM ADMINISTRATOR-D implantation Reason For Admission: Consideration of complex PCI vs CABG for in-stent restenosis of LCx and LM/LAD stents Hospital Course: Please see H&P for hospital course at [facility] prior to transfer to [facility]. Ron Mckeon is a 61 [...] treatment who was admitted in transfer from [facility] on 10/11 for consideration of PCI vs [...] support--had one 3.0 x [address] ug-eluting stent placed in ostial L [...] 10/16. VT was induced, therefor e a LINUX SYSTEM ADMINISTRATOR-D was implanted. He is discharging home in good condition with follow up in 1 week w ith his Applications Consultant. The following problems were addressed this hospitalization: [...] uenza and underwent a coronary angiogram at [facility] which revealed in stent re-stenosis of both LM into LAD and LCx stents, mild disease of RCA. Transferred to [facility] for further onel luation. CTS was consulted for consideration of CABG vs complex PCI. Due to nonviable myocardium archie wn on cardiac PET and resting NM perfusion study, PCI was chosen over CABG. On 10/15 he underw ent angiography/PCI with impella support--had one 3.0 x 18 mm Resolute Coy drug-eluting chery nt placed in ostial L [...] II, Stage C. Etiology ischemic. TTE at [facility] showed EF 30-35%, mildly reduced [...] the past --ICD: placed by EP 10/16, LINUX SYSTEM ADMINISTRATOR-D -- will need 1 week f/u for wound check, then 1 month device check with EP -- f/u with outpatient smart grid engineer 2-4 weeks # Paroxysmal Aflutter Noted Aflutter with RVR at admission in [facility]; treated with amiodarone infusion. He w as transitioned to oral amiodarone and maintained normal rhythm. Given that the aflutter occ urred in setting of severe sepsis, will not continue amiodarone or warfarin. If he has recur rent arrhythmia, this will be noted on LINUX SYSTEM ADMINISTRATOR-D and could consider anticoagulation at that time . However, he requires DAPT and has a possible history of recent GIB, so triple therapy shou ld be avoided if not necessary --rate control: metoprolol as above --anticoagulation: holding warfarin for now given DAPT and h/o GI B. Discuss further with outpatient smart grid engineer. May consider holding anticoagulation unless he demonstrates recurrent arrhythmia # Influenza type A - resolved # Community acquired pneumonia # Severe sepsis with shock, resolved Pt presented to [facility] 10/03 found to be Flu Apositive with [...] sepsis management , fluid resuscitation. EGD at [facility] on 10/05 showed gastritis, duodenitis, linear ulcerations [...] first post-hospitalization visit: 1. Wound check from LINUX SYSTEM ADMINISTRATOR-D placement 2. Consider restarting lisinopril if BPs improve and Cr is stable 3. Instructed pt to restart metformin on 08/18 but reevaluate based on Cr Schedule the following appointment(s) when you get home KULWINDER Stevens. Go on 10/19/2017. Why: at 1:15pm for heart failure follow up, to re-check labwork, and to have your wound ch ecked Contact information HEART [address] [address] KULWINDER Stevens. Go on 11/11/2017. Why: at 9:30am for cardiology follow up and to have your device checked Contact information HEART [address] [address] Medication List START taking these medications Childrens [...] Resume on 10/19. Indications: type 2 diabetes [facility] metoprolol succinate 25 mg Tb24 Commonly known [...] 0%. 8.Stent: 3.0 x 18 mm Resolute Coy drug-eluting stent. Lesion #2: 1.Lesion location: Distal [...] circumflex. One 3.0 x 18 mm Resolute Coy drug-eluting stent. Successful percutaneous coronary transluminal angiop [...] ths. You should be cleared by your smart grid engineer prior to returning to driving. If [...] How to Contact us: Cardiology Division Office [phone] Cardiology Patient Phone Line EDUIN [address] Dr[address] Dr., Dr., PA-C Connie Barber, NP Karen Paladino, RN Margaret Kleist, RN Evenings or weekends: Ask for on-call smart grid engineer Drug Eluting Stent 1. Please take Plavix (clopidogrel) everyday which helps to keep the stent open. You need t o take it every day for one year and do not stop unless you are told to by your smart grid engineer . 2. Take an aspirin 81 mg once daily indefinitely. 3. You were referred for cardiac rehab and should start now that you have had a stent place d. 4. Follow up with your smart grid engineer within 2-4 weeks. 5. No elective [...] smoker.Patient counseled on importance of smoking cessation [facility] Last vitals: BP: 101/65 (10/17/17 1144) Pulse: 80 (10/17/17 1144) Resp: 18 ( 1144) Weight: 88.4 kg (194 lb 14.2 oz) (10/17/17 0221) Discharging Provider: LALA SCHOFIELD PA-C, Cardiovascular Medicine Attending Physician: Khurram Bedoya MD, Cardiovascular Medicine Lala Schofield PA-C Instructor of Cardiovascular Medicine [facility] [place] [facility] [place] I spent 36 minutes in coordination of care and jkxa-la-xlfc with the patient and/or their s urrogate in which the problems above were discussed Associated attestation - Khurram Bedoya MD - 10/17/2017 3:22 PM PSTCardiology [facility] I have seen and examined Mr. Mckeon and discussed the patient's [facility]. I reviewed the practitioner's note above and agree with the documented f indings and plan of care. KHURRAM BEDOYA MD Director of the [facility] Hypertrophic Cardiomyopathy Radiator Tester of Echocardiography Machine Load Clerkpersonal lines insurance agent Division of Cardiovascular Medicine in this encounter Discharge Instructions The following attachments cannot be sent through Care Everywhere.WOUND CHECK ([place]ICD ( IMPLANTABLE CARDIOVERTER-DEFIBRILLATOR): POST-OP ([place])PAIN POST-SURGERY: ACUTE ([place]) OPIOIDS: SAFE USE ([place])OPIOIDS: STORAGE AND DISPOSAL: GENERAL INFO ([place])in this enco unter Medications at Time of [...] Information: Implant date: 10/16/17 BiV-ICD pulse generator: Associate Professor Of Geology: [employer] Model number: [id number] Serial number: [id number] RA lead: Associate Professor Of Geology: [employer] Model number: 5076-52 Serial number: [id number] RV lead: Associate Professor Of Geology: [employer] Model number: [id number] Serial number: [id number] CS lead: Associate Professor Of Geology: [employer] Model number: [id number] Serial number: [id number] ICD PROGRAMMING: Bradycardia Parameters: Mode: DDD Lower rate limit: 50 Upper rate limit: 130 Output (A): 3.5 V at 0.4 ms Sensitivity (A): 0.3 mV Output (RV): 3.5 V at 0.4 ms Sensitivity (RV): 0.3 mV Output (CS): 2.0 V at 0.4ms Tachycardia Parameters: VT zone: 177-200 Therapies: Monitor VF zone: >200 bpm Therapies: 35 J x 6 PACING PERCENTAGE: AP: <0.1% SUCKER MACHINE OPERATOR: 98.3% EPISODES SINCE IMPLANT: none. TODAY'S TESTING [...] and Device check in one month at [facility] device clinic. I have reque [...] MD Electrophysiology Fellow Division of Cardiovascular Medicine [facility] Pager [phone] Associated attestation - Lauro Jorgensen MD - 10/18/2017 12:04 PM PSTElectrophysiolog y Attending I have seen and examined Mr. Mckeon and discussed the patient's management with the resi dent and/or fellow. I reviewed the housestaff note above and agree with the documented find ings and plan of care. He is doing well. For regular device follow up. Lauro Jorgensen M.D. Director, Electrophysiology Call Center Support Consultantbaby counselor [facility] [place] [phone] Amarilis Castle MD - 10/17/2017 10:53 AM [...] hs. You should be cleared by your smart grid engineer prior to returning to driving. ? [...] through the full body scanner at the [facility] or, but only after 6 weeks [...] How to Contact us: Cardiology Division Office [phone] Cardiology Patient Phone Line EDUIN [address] [...] 1) EP study with VT induction 2) LINUX SYSTEM ADMINISTRATOR-D Indication for the procedure: Ischemic cardiomyopathy with [...] MD Electrophysiology Fellow Division of Cardiovascular Medicine [facility] Pager [phone] Lala Schofield PA-C - 10/16/2017 2:07 PM PSTFormatting of this note may be different fro m the original. IP Cardiology Progress Note Date: 10/16/2017 Hospital Day: 6 Attending Applications Consultant: Khurram Bedoya MD Provider: LALA SCHOFIELD PA-C Primary Care Provider: Chato Matson MD Outpatient Applications Consultant: Dr Jamal Guerrero MD ID:Ron Mckeon is a 61 year old male with past medical history of CAD s/p anterior CHERY PA 03/2017 with cardiogenic shock s/p PCI with ANY to LM/LAD and LCx with ECMO support, systo lic heart failure (EF 20-25%), ischemic cardiomyopathy, hypertension, Atrial flutter, prior tobacco use, recent JAVON thrombus on anticoagulation, Influenza A with septic shock (10/03) re quiring intubation and mechanical ventilation, HAP on treatment who was admitted in transfer from [facility] on 10/11 for consideration of PCI vs [...] cannot appreciate murmur and sounds regular. J SUCKER MACHINE OPERATOR not above clavicle at 90 degrees Gastrointestinal: [...] found for: FREET4, TSH, TPOAB, THYROGLOB, THYROGLOBAB, [id number] Lab Results Component Value Date A1C 5.9 [...] 8. Stent: 3.0 x 18 mm Resolute Coy drug-eluting stent. Lesion #2: 1. Lesion location: [...] uenza and underwent a coronary angiogram at [facility] which revealed in stent re-stenosis of both LM into LAD and LCx stents, mild disease of RCA. Transferred to [facility] for further onel luation. CTS was consulted for consideration of CABG vs complex PCI. Due to nonviable myocardium archie wn on cardiac PET and resting NM perfusion study, PCI was chosen over CABG. On 10/15 he underw ent angiography/PCI with impella support--had one 3.0 x 18 mm Resolute Coy drug-eluting chery nt placed in ostial L [...] II-III, Stage C. Etiology ischemic. TTE at [facility] showed EF 30-35%, mildly reduced [...] check with EP -- f/u with outpatient smart grid engineer 2-4 weeks # Paroxysmal Aflutter Noted Aflutter with RVR at admission in [facility]; treated with amiodarone infusion. Now maintaining SR on oral amio. CHADS-VASC 3, HAS-BLED 3. Was previously on heparin infusion fo r NSTEMI but this has been stopped and AC was not started in anticipation of PCI. --rate control: carvedilol as above --rhythm control: continue amiodarone 200 mg daily for now, to be reassessed b y outpatient smart grid engineer --anticoagulation: holding warfarin for now given DAPT and h/o GIB. Discuss fu rther with outpatient smart grid engineer. May consider holding anticoagulation unless he demonstra janeth recurrent arrhythmia # Influenza type A - resolved # Community acquired pneumonia # Severe sepsis with shock, resolved Pt presented to [facility] 10/03 found to be Flu A positive [...] sepsis management , fluid resuscitation. EGD at [facility] on 10/05 showed gastritis, duodenitis, linear ulcerations [...] patient was interviewed and examined by attending smart grid engineer, Dr. Khurram Bedoya MD , who is in agreement with above described findings, assessment and plan. LALA SCHOFIELD PA-C Cardiovascular Medicine [facility] Pager [phone] I spent 36 minutes in coordination of care and mrnf-ho-cdgd with the patient and/or their surrogate in [...] Continue current post-cath car tom SUERO MD [facility] [address] [place] [phone] Ruth Ann Carvajal PA-C - 10/15/2017 3:36 [...] circumflex. One 3.0 x 18 mm Resolute Coy drug-eluting stent. Successful percutaneous coronary transluminal angiopla [...] circ and LAD. EPS v-stim with possible LINUX SYSTEM ADMINISTRATOR-D tomorrow (QRS today is 152 atypical LB BB). See yesterdays attestation Sophie Darby MD Cardiovascular Medicine - Electrophysiology [facility] Cardiovascular [place] at [facility] Arya Low MD - 10/15/2017 1:05 PM PSTCARDIOLOGY PRELIMINARY PROCEDURE NOTE Primary Care Provider: Chato Matson MD Referring Provider: Other Dictation Production Helper Staff: Tejal Modi M.D. Procedure(s): 1. Coronary angiography 2. Percutaneous coronary intervention 3. Left heart catheterization 4. Impella placement and removal 5. Moderate conscious sedation Indications: Unstable angina, planned LM intervention Access: 14-Burkinan RFA 6-Burkinan RFV 7-Burkinan LFA Post Procedure Access: No evidence of [...] Note Date: 10/15/2017 Hospital Day: 5 Attending Applications Consultant: Khurram Bedoya MD Provider: LALA SCHOFIELD PA-C Primary Care Provider: Chato Matson MD Outpatient Applications Consultant: Dr Jamal Guerrero MD ID:Ron Mckeon is a 61 year old male with past medical history of CAD s/p anterior CHERY PA 03/2017 with cardiogenic shock s/p PCI with ANY to LM/LAD and LCx with ECMO support, systo lic heart failure (EF 20-25%), ischemic cardiomyopathy, hypertension, Atrial flutter, prior tobacco use, recent JAVON thrombus on anticoagulation, Influenza A with septic shock (10/03) re quiring intubation and mechanical ventilation, HAP on treatment who was admitted in transfer from [facility] on 10/11 for consideration of PCI vs [...] cannot appreciate murmur and sounds regular. J SUCKER MACHINE OPERATOR not above clavicle at 90 degrees Gastrointestinal: [...] found for: FREET4, TSH, TPOAB, THYROGLOB, THYROGLOBAB, [id number] Lab Results Component Value Date A1C 5.9 [...] uenza and underwent a coronary angiogram at [facility] which revealed in stent re-stenosis of both LM into LAD and LCx stents, mild disease of RCA. Transferred to [facility] for further onel luation. CTS was consulted for consideration of CABG vs complex PCI. Due to nonviable myocardium archie wn on cardiac PET and resting NM perfusion study, he will proceed with PCI tomorrow with Imp tania support. -- to lab pack chemist today for PCI with impella support --ASA [...] II-III, Stage C. Etiology ischemic. TTE at [facility] showed EF 30-35%, mildly reduced [...] Noted Aflutter with RVR at admission in [facility]; treated with amiodarone infusion. Now maintaining SR [...] sepsis with shock, resolved Pt presented to [facility] 10/03 found to be Flu A positive [...] sepsis management , fluid resuscitation. EGD at [facility] on 10/05 showed gastritis, duodenitis, linear ulcerations [...] patient was interviewed and examined by attending smart grid engineer, Dr. Khurram Bedoya MD , who is in agreement with above described findings, assessment and plan. LALA SCHOFIELD PA-C Cardiovascular Medicine [facility] Pager [phone] I spent 38 minutes in coordination of care and dfoe-ek-vvjo with the patient and/or their surrogate in which the following was discussed: plan for PCI with impella support today, hea rt failure, anticoagulation for aflutter, discharge planning Associated attestation - Khurram Bedoya MD - 10/15/2017 1:15 PM PSTCardiology Attendi I have seen and examined Mr. Mckeon and discussed the patient's [facility]. I reviewed the practitioner's note above and agree with the documented f indings and plan of care. KHURRAM BEDOYA MD Director of the [facility] Hypertrophic Cardiomyopathy Radiator Tester of Echocardiography Machine Load Clerkpersonal lines insurance agent Division of Cardiovascular Medicine Ruth Ann Carvajal [...] is segmentally abnormal. 10/03/17: TTE @ [facility] Summary The number of aortic valve [...] CARDIAC CATHETERIZATION: DATE OF PROCEDURE:10/03/17 @ [facility] CORONARY ANGIOGRAPHY DOMINANCE: Right LEFT MAIN [...] about Vf/VT risk in both short and vermin exterminator. Given NSVT and EF 30-35%, we will therefore proceed to an EP study with implantation o f an ICD if she has inducible VT. Given atypical LBBB QRS 147 and current functional status 3 (prior 1-2 by report) and concern for lack of EF recovery, we would plan for LINUX SYSTEM ADMINISTRATOR with His- bundle lead if needed. Sophie Darby MD Cardiovascular Medicine - Electrophysiology [facility] Cardiovascular [place] at [facility] Lala Schofield PA-C - 10/14/2017 11:58 AM PSTFormatting of this note may be different fro m the original. IP Cardiology Progress Note Date: 10/14/2017 Hospital Day: 4 Attending Applications Consultant: Khurram Bedoya MD Provider: LALA SCHOFIELD PA-C Primary Care Provider: Chato Matson MD Outpatient Applications Consultant: Dr Jamal Guerrero MD ID:Ron Mckeon is a 61 year old male with past medical history of CAD s/p anterior CHERY PA 03/2017 with cardiogenic shock s/p PCI with ANY to LM/LAD and LCx with ECMO support, systo lic heart failure (EF 20-25%), ischemic cardiomyopathy, hypertension, Atrial flutter, prior tobacco use, recent JAVON thrombus on anticoagulation, Influenza A with septic shock (10/03) re quiring intubation and mechanical ventilation, HAP on treatment who was admitted in transfer from [place] on 10/11 for consideration of PCI vs [...] Very t hankful of care provided at [facility] Current Inpatient Medications: acetaminophen (TYLENOL) [...] found for: FREET4, TSH, TPOAB, THYROGLOB, THYROGLOBAB, [id number] Lab Results Component Value Date A1C 5.9 [...] uenza and underwent a coronary angiogram at [facility] which revealed in stent re-stenosis of both LM into LAD and LCx stents, mild disease of RCA. Transferred to [facility] for further onel luation. CTS [...] II-III, Stage C. Etiology ischemic. TTE at [facility] showed EF 30-35%, mildly reduced [...] Noted Aflutter with RVR at admission in [facility]; treated with amiodarone infusion. Now maintaining SR [...] sepsis with shock, resolved Pt presented to [facility] 10/03 found to be Flu A positive [...] sepsis management , fluid resuscitation. EGD at [facility] on 10/05 showed gastritis, duodenitis, linear ulcerations [...] patient was interviewed and examined by attending smart grid engineer, Dr. Khurram Bedoya MD , who is in agreement with above described findings, assessment and plan. LALA SCHOFIELD PA-C Cardiovascular Medicine [facility] Pager [phone] I spent 42 minutes in coordination of care and ldpb-gj-utgk with the patient and/or their s urrogate in which the following was discussed: results of nuc med and PET scan studies indic ating no viable myocardium and thus will plan for complex PCI tomorrow Associated attestation - Khurram Bedoya MD - 10/14/2017 9:29 PM PSTCardiology Attendi I have seen and examined Mr. Mckeon and discussed the patient's [facility]. I reviewed the practitioner's note above and agree with the documented f indings and plan of care. KHURRAM BEDOYA MD Director of the [facility] Hypertrophic Cardiomyopathy Radiator Tester of Echocardiography Machine Load Clerkpersonal lines insurance agent Division of Cardiovascular Medicine Ashleigh Alvarez ACNP - 10/13/2017 8:33 AM PSTFormatting of this note may be differ ent from the original. Cardiology Inpatient Progress Note Date: 10/13/2017 Hospital Day: 3 Primary Care Physician: Chato Matson MD Outpatient Applications Consultant: Dr Jamal Guerrero MD Attending Applications Consultant: Khurram Bedoya MD Provider: Ashleigh Alvarez [facility] ID: Ron Mckeon is a [...] who was admitted in transfe r from [place] on 10/11 for consideration of PCI vs [...] found for: FREET4, TSH, TPOAB, THYROGLOB, THYROGLOBAB, [id number] Lab Results Component Value Date A1C 5.9 [...] exam dated, 03/30/2017, the LVEF is similar. [facility] CXR 10/11/17: FINDINGS: The increased [...] of the duodenum. - No specimens collected. [facility] and selective coronary angiography 10/04/17 summary (full report in CareEverywhere): 1.Systemic hypotension, upper normal left ventricular end-diastolic pressure 2.Severe in-stent stenosis of left main to ostial LAD stent 3.Severe in-stent stenosis ostial proximal left circumflex stent 4.Mild to moderate RCA disease 5.ANNA grade 1 flow to distal LAD 10/03/17 Echo at [place]: The number of aortic valve leaflets cannot [...] stents # NSTEMI Pt was admitted to [facility] 10/03 with hypoxemic respiratory failure, severe sepsis and s hock thought to be due to influenza type A as below. Noted to have new LBBB, NSTEMI with pea k trop 26. Underwent coronary angiogram at [facility] 10/04 which revealed in stent re-steno sis of both LM into LAD and LCx stents, mild disease of RCA. Transferred to [facility] for further evaluation. TTE showed [...] II-III, Stage C. Etiology ischemic. TTE at [facility] showed EF 30-35%, mildly reduced RV function, mild dilation of ascending aorta. LVEDP 14 mm hg during catheterization 10/04 ( in setting of hypotension). Pt was diuresed at [facility], appears euvolemic on exam. Pt wa s [...] Noted Aflutter with RVR at admission in [place], treated with amiodarone infusion, main taining SR [...] admitted with acute dyspnea, respiratory failure to [facility] 10/03 found to be Flu A p [...] sepsis management , fluid resuscitation. EGD at [facility] on 10/05 showed gastritis, duodenitis, linear ulcerations [...] patient was interviewed and examined by attending smart grid engineer, Dr. Khurram Bedoya MD , who is in agreement with above described findings, assessment and plan. KULWINDER Grace Instructor of Medicine [facility] [place] Pager [phone] I spent 33 minutes in coordination of care and rjst-pi-afwg with the patient and/or their s urrogate in which management of CAD, imaging plan and consultation with radiology, revascula rization treatment was discussed Associated attestation - Khurram Bedoya MD - 10/13/2017 2:48 PM PSTCardiology Attendi ng I have seen and examined Mr. Mckeon and discussed the patient's management [facility]. I reviewed the practitioner's note above and agree with the documented f indings and plan of care. KHURRAM BEDOYA MD Director of the [facility] Hypertrophic Cardiomyopathy Radiator Tester of Echocardiography Machine Load Clerkpersonal lines insurance agent Division of Cardiovascular Medicine Ashleigh Alvarez ACNP - 10/12/2017 8:02 AM PSTFormatting of this note may be differ ent from the original. Cardiology Inpatient Progress Note Date: 10/12/2017 Hospital Day: 2 Primary Care Physician: Chato Matson MD Outpatient Applications Consultant: Dr Jamal Guerrero MD Attending Applications Consultant: Khurram Bedoya MD Provider: KULWINDER Grace ID: [...] who was admitted in transfe r from [place] on 10/11 for consideration of PCI vs [...] found for: FREET4, TSH, TPOAB, THYROGLOB, THYROGLOBAB, F5VRLYO Lab Results Component Value Date A1C 5.6 [...] exam dated, 03/30/2017, the LVEF is similar. [facility] CXR 10/11/17: FINDINGS: The increased [...] flow to distal LAD 10/03/17 Echo at [place]: The number of aortic valve leaflets cannot [...] stents # NSTEMI Pt was admitted to [place] 10/03 with hypoxemic respiratory failure, severe sepsis and s hock thought to be due to influenza type A as below. Noted to have new LBBB, NSTEMI with pea k trop 26. Underwent coronary angiogram at [place] 10/04 which revealed in stent re-steno sis of both LM into LAD and LCx stents, mild disease of RCA. Transferred to [facility] for further evaluation. TTE shows [...] II-III, Stage C. Etiology ischemic. TTE at [facility] showed EF 30-35%, mildly reduced RV function, mild dilation of ascending aorta. LVEDP 14 mm hg during catheterization 10/04 ( in setting of hypotension). He was diuresed at [place], appears euvolemic on exam today. Pt was [...] Aflutter with RVR prior to admission in [place], treated with amioda rima infusion, maintaining SR [...] admitted with acute dyspnea, respiratory failure to [facility] 10/03 found to be Flu pos itive. [...] sepsis management , fluid resuscitation. EGD at [place] on 10/05 showed gastritis, duodenitis, linear ulcerations [...] patient was interviewed and examined by attending smart grid engineer, Dr. Khurram Bedoya MD , who is in agreement with above described findings, assessment and plan. Ashleigh Alvarez, [facility] Instructor of Medicine [facility] [place] Pager [phone] I spent 51 minutes in coordination of care and uumk-pq-nwig with the patient and/or their s urrogate in which management of CAD, imaging plan and consultation with radiology, pneumonia treatment was discussed Associated attestation - Khurram Bedoya MD - 10/12/2017 3:00 PM PSTCardiology Attendi I have seen and examined Mr. Mckeon and [facility] the [facility]. I reviewed the practitioner's note above and agree with the documented f indings and plan of care. KHURRAM BEDOYA MD Director of the [facility] Hypertrophic Cardiomyopathy Radiator Tester of Echocardiography Machine Load Clerkpersonal lines insurance agent Division of Cardiovascular Medicine Lopez Suttonsebastiengeno - 10/11/2017 12:15 PM PSTTransthoracic echocardiogram completed. Final report to follow. in this encounter Plan of Treatment + +--------+ + + | Name | Priori | Associated Diagnoses | Order Schedule | | | ty | | | + +--------+ + + | NEWS WIRE PHOTO OPERATOR INT CORONARY ANGIOGRAM | Routin | | Tomorrow for 1 | | | e | | Occurrences starting | | | | | 10/15/2017 until | | | | | 10/15/2017 | + +--------+ + + | NEWS WIRE PHOTO OPERATOR EP ICD | Routin | | One [...] [address] | | | [place] [address] | + + + CAPILLARY BLOOD GLUCOSE [...] [address] | | | [place] [address] | + + + X-RAY CHEST 2 VIEW (10/17/2017 7:04 AM) + + + | Specimen | Performing Laboratory | + + + | | [facility] RADIOLOGY VOICE RECOGNITION | [...] | + + + | Blood | [facility] LABORATORY SERVICES, CORE [address] | | | [place] [address] | + + + BASIC METABOLIC SET [...] | >60 | >60 mL/min | | [facility] | | | + + + + | EGFR NON | 51 (L) | >60 mL/min | | [facility] | | | + + + + [...] | + + + | Blood | [facility] LABORATORY [facility], CORE [address] | | | [place] [address] | + + + + + | [...] | | ------ CBC (HEMOGRAM) | | ONLY[[id number]] Abnormal Final | | result Please view results for these tests on the | | individual orders. | + + CARDIOLOGY (10/17/2017)CARDIOLOGY (10/17/2017)X-RAY PORTABLE CHEST 1 VIEW (10/16/2017 6:20 PM) + + + | Specimen | Performing Laboratory | + + + | | [facility] RADIOLOGY VOICE RECOGNITION | + + + + + | Narrative | + + | STUDY: OK CHEST 1 VIEW HISTORY: Evaluated lead placement. COMPARISON: | | STUDY: OK CHEST 1 VIEW FINDINGS: A new left [...] Interface - 10/17/2017 7:51 AM PST STUDY: OK CHEST 1 | | VIEWHISTORY: Evaluated lead placement.COMPARISON: STUDY: OK CHEST 1 VIEWFINDINGS: A | | new [...] procedure. | | He is candidate for LINUX SYSTEM ADMINISTRATOR-D since he as class 2 baseline heart failure and currently | | class 3 heart failure with LBBB 152 msec. PROCEDURE ATTENDING: Sophie Darby, | | FELLOW: Amarilis Castle MD PROCEDURAL | | DATA: Procedure: New implant Implanted generator technician's helper: Medtronic | | Implanted leads technician's helper: Medtronic Radha-procedure Anticoag: None Presenting | | rhythm: NSR Existing device under advisory? No Pacemaker dependent: No | | Method of sedation: Conscious sedation - Anesth provider Response to | | sedation: Normal Fluoroscopy time (see log): 45-47 minutes | | MEDICATIONS: See anesthesia log and lab pack chemist log INTAKE AND OUTPUT: 1000 ml | [...] DEVICE INFORMATION: | | BiV-ICD pulse generator: Associate Professor Of Geology: Medtronic Model number: [id number] | | Serial number: [id number] RA lead: Associate Professor Of Geology: Medtronic Model number: | | 5076-52 Serial number: [id number] RV lead: Associate Professor Of Geology: Medtronic | | Model number: [id number] Serial number: [id number] CS lead: | | Associate Professor Of Geology: Medtronic Model number: [id number] Serial number: [id number] | | MEASURED PARAMETERS: RA lead: P [...] | | Fellow Division of Cardiovascular Medicine [facility] | | Pager [phone] Pursuant to Federal Medicare requirements, I certify that I, Sophie | | Wilner BREWER, was present for the entire procedure, performed all critical elements, and | | participated directly in the generation of this report. Sophie Darby MD | | Cardiovascular Medicine - Electrophysiology [facility] [place] at [facility] | | | + [...] Castle MD MEDICATIONS: See anesthesia log and lab pack chemist | | log FLUIDS: In: 300 ml/ [...] interval (ms): 82 HV interval (ms): 75 OK interval (ms): | | 180 QRS duration [...] Fellow Division of | | Cardiovascular Medicine [facility] Pager [phone] Pursuant | | to Federal Medicare requirements, I certify that I, Sophie Darby MD, was present for | | the entire procedure, performed all critical elements, and participated directly in | | the generation of this report. Sophie Darby MD Cardiovascular Medicine - | | Electrophysiology [facility] [place] at [facility] | + + VBG-FULL ABL, [...] [address] | | | [place] [address] | + + + INTRAPROCEDURE IMAGING (10/16/2017 [...] [address] | | | [place] [address] | + + + CBC (HEMOGRAM) ONLY [...] | + + + | Blood | [facility] LABORATORY SERVICES, CORE [address] [place] [address] | | | [place] [address] | + + + BASIC METABOLIC SET [...] | >60 | >60 mL/min | | [facility] | | | + +---------+ + | EGFR NON | 58 (L) | >60 mL/min | | [facility] | | | + +---------+ + | [...] | + + + | Blood | [facility] LABORATORY SERVICES, CORE [address] [facility] | | | [place] [address] | + + + + + | [...] | | ------ CBC (HEMOGRAM) | | ONLY[[id number]] Abnormal Final | | result Please view [...] [address] | | | [place] [address] | + + + 12 LEAD ECG [...] Laboratory | + + + | | [facility] [address] [place] [address] | | | [place] [address] | + + + CARDIAC CATH (10/15/2017 2:11 PM) + + | Procedure Note | + + | Tejal Modi MD - 10/15/2017 2:11 PM PST DATE OF PROCEDURE:October 15 | | 2018PERFORMING PHYSICIAN:Tejal Modi [facility] ATTENDING:Mike Bray MDThere was no | [...] 110 mL.FLUOROSCOPY TIME:17.8 minutes.FLUOROSCOPY | | DAP:7406.0 [id number]:1. Left ventricular pressure 91/23 mmHg.2. Aortic | | pressure 93/72 mmHg, mean of 80 mmHg. 3. Heart rate 71 beats per minute.ACCESS:1. | | 14-Burkinan Impella sheath in the right femoral artery.2. 7-Burkinan sheath in the left | | femoral artery.3. 6-Burkinan sheath in the right femoral vein.ESTIMATED BLOOD [...] | micropuncture technique and ultrasound guidance, a 5-Burkinan sheath was inserted in the | | right femoral artery and a 6-Burkinan sheath was inserted in the right femoral vein. Two | | Perclose devices were deployed in the preclosure method and then the 5-Burkinan sheath was | | exchanged over an Amplatz stiff wire for the 14-Burkinan Impella sheath. A 5-Burkinan | | angled pigtail catheter was then [...] technique and ultrasound guidance and placed a 7-Burkinan sheath. A 7-Burkinan XB 3.5 guide | | catheter was [...] and a 3.0 x 18 mm Resolute Coy drug-eluting stent was advanced over the | [...] and pulled out of the body. The 14-Burkinan sheath was | | then removed and [...] with one 3.0 x 18 mm Resolute Coy drug-eluting stent. Successful | | percutaneous coronary [...] | | 10/15/2017 13:25:02DT: 10/15/2017 14:11:10Job #: [id number] | |2. Lesion type: C. | |3. [...] |BCN/MODL | | | | | | /[id number] | + + ACT, POC-CCL ONLY (10/15/2017 [...] [address] | | | [place] [address] | + + + ACT, POC-CCL ONLY (10/15/2017 12:17 PM) + +-------+ + | Component | Value | Ref Range | + +-------+ + | ACT, POC CCL | 247 | 90 - 150 | | INTRAPROC | | | + +-------+ + + + + | Specimen | Performing Laboratory | + + + | Blood | [facility] [place], POINT OF CARE TESTS [address] | | | [place] [address] | + + + ACT, POC-CCL ONLY [...] [address] | | | [place] [address] | + + + NEWS WIRE PHOTO OPERATOR EMERGENT/IMMEDIATE PROCEDURE (10/15/2017 11:00 AM) + + | Narrative | + + | Procedure performed in the Cardiac Production Helper. See procedure notes for details. | + + CAPILLARY BLOOD GLUCOSE (NO CHG), POC (10/15/2017 9:25 AM) + +---------+ + | Component | Value | Ref Range | + +---------+ + | BLOOD GLUCOSE, POC | 119 (H) | 70 - 99 mg/dL | + +---------+ + + + + | Specimen | Performing Laboratory | + + + | | [facility], POINT OF CARE TESTS [address] | | | [place] [address] | + + + CBC (HEMOGRAM) ONLY [...] | + + + | Blood | [facility] LABORATORY SERVICES, CORE [address] [facility] | | | [place] [address] | + + + BASIC METABOLIC SET [...] 57 (L) | >60 mL/min | | [facility] | | | + + + + | EGFR NON | 47 (L) | >60 mL/min | | [facility] | | | + + + + [...] | + + + | Blood | [facility] LABORATORY SERVICES, CORE [address] [place] [address] | | | [place], [place] [address] | + + + + + | [...] | | ------ CBC (HEMOGRAM) | | ONLY[[id number]] Abnormal Final | | result Please view [...] | + + + | Blood | [facility] LABORATORY SERVICES, CORE [address] [facility] | | | [place] [address] | + + + + + | [...] Laboratory | + + + | | [facility] [place], POINT OF CARE TESTS [address] | | | [place] [address] | + + + BASIC METABOLIC SET [...] | >60 | >60 mL/min | | [facility] | | | + + + + | EGFR NON | 55 (L) | >60 mL/min | | [facility] | | | + + + + [...] | + + + | Blood | [facility] LABORATORY SERVICES, CORE [address] [facility] | | | [place] [address] | + + + + + | [...] | + + + | Blood | [facility] LABORATORY [facility], CORE [address] [facility] | | | [place] [address] | + + + CBC ONLY (10/14/2017 4:24 AM) + + + | Specimen | Performing Laboratory | + + + | Blood | | + + + + + | Narrative | + + | The following orders were created for panel order CBC ONLY. | | Procedure | | Abnormality Status | | --------- | | ------ CBC (HEMOGRAM) | | ONLY[[id number]] Abnormal Final | | result Please view [...] + + + | | [facility], POINT OF CARE TESTS [address] | | | [place] [address] | + + + PET CARDIAC METABOLIC [...] | | significant tracer uptake within the rwf-ba-kxzlis anterior wall/interventricular septum | | and apex [...] Note | + + | Service Account, [employer] - 10/14/2017 5:47 PM PST [...] significant tracer | | uptake within the qlh-ct-ffdeou anterior wall/interventricular septum and apex | | corresponding to same non-perfused areas seen on myocardial rest perfusion scan, | | compatible with nonviable myocardium in these regions. I have personally reviewed the | | images and, if necessary, edited the report. I agree with the report as now presented. | |No significant tracer uptake within the jhn-lv-dkvpjb anterior wall/interventricular septum and apex corresponding to [...] + + + | | [facility] [place], POINT OF CARE TESTS [address] | | | [place] [address] | + + + CAPILLARY BLOOD GLUCOSE [...] [address] | | | [place] [address] | + + + CAPILLARY BLOOD GLUCOSE (NO CHG), POC (10/13/2017 4:16 PM) + +---------+ + | Component | Value | Ref Range | + +---------+ + | BLOOD GLUCOSE, POC | 201 (H) | 70 - 99 mg/dL | + +---------+ + + + + | Specimen | Performing Laboratory | + + + | | [facility] [place], POINT OF CARE TESTS [address] | | | [place] [address] | + + + CAPILLARY BLOOD GLUCOSE [...] [address] | | | [place] [address] | + + + CAPILLARY BLOOD GLUCOSE (NO CHG), POC (10/13/2017 3:47 PM) + +---------+ + | Component | Value | Ref Range | + +---------+ + | BLOOD GLUCOSE, POC | 181 (H) | 70 - 99 mg/dL | + +---------+ + + + + | Specimen | Performing Laboratory | + + + | | [facility] [place], POINT OF CARE TESTS [address] | | | [place] [address] | + + + CAPILLARY BLOOD GLUCOSE [...] [address] | | | [place] [address] | + + + CAPILLARY BLOOD GLUCOSE [...] [address] | | | [place] [address] | + + + CAPILLARY BLOOD GLUCOSE (NO CHG), POC (10/13/2017 3:03 PM) + +---------+ + | Component | Value | Ref Range | + +---------+ + | BLOOD GLUCOSE, POC | 153 (H) | 70 - 99 mg/dL | + +---------+ + + + + | Specimen | Performing Laboratory | + + + | | [facility], POINT OF CARE TESTS [address] | | | [place] [address] | + + + CAPILLARY BLOOD GLUCOSE (NO CHG), POC (10/13/2017 2:44 PM) + +---------+ + | Component | Value | Ref Range | + +---------+ + | BLOOD GLUCOSE, POC | 130 (H) | 70 - 99 mg/dL | + +---------+ + + + + | Specimen | Performing Laboratory | + + + | | [facility], POINT OF CARE TESTS [address] | | | [place] [address] | + + + CAPILLARY BLOOD GLUCOSE [...] [address] | | | [place] [address] | + + + CAPILLARY BLOOD GLUCOSE [...] [address] | | | [place] [address] | + + + NM MYOCARDIAL PERFUSION (SPECT) SINGLE AT REST OR STRESS (10/13/2017 11:18 AM) + + + | Specimen | Performing Laboratory | + + + | | [facility] RADIOLOGY VOICE RECOGNITION | + + + [...] Note | + + | Service Account, [employer] [facility] Interface - 10/13/2017 5:30 PM PST [...] Laboratory | + + + | | [facility] [place], POINT OF CARE TESTS [address] | | | [place] [address] | + + + CBC (HEMOGRAM) ONLY [...] | + + + | Blood | [facility] LABORATORY SERVICES, CORE [address] [facility] | | | [place] [address] | + + + BASIC METABOLIC SET [...] | >60 | >60 mL/min | | [facility] | | | + +---------+ + | EGFR NON | 59 (L) | >60 mL/min | | [facility] | | | + +---------+ + | [...] Blood | [facility], CORE [address] [facility] | | | [place] [address] | + + + + + | [...] | | ------ CBC (HEMOGRAM) | | ONLY[[id number]] Abnormal Final | | result Please view [...] Laboratory | + + + | | [facility], POINT OF CARE TESTS [address] [facility] [address] | | | [place] [address] | + + + CARDIOLOGY (10/13/2017)CARDIOLOGY (10/13/2017)APTT (ACT. PART. THROMBO TIME) (10/12/2017 8 :44 PM) + +-------+ + | Component | Value | Ref Range | + +-------+ + | APTT | 28.7 | 26.0 - 36.0 seconds | + +-------+ + + + + | Specimen | Performing Laboratory | + + + | Blood | [facility] LABORATORY SERVICES, CORE [address] [place] [address] | | | [place], [place] [address] | + + + + + | [...] [address] | | | [place] [address] | + + + MR CARDIAC COMPREHENSIVE W/O CONTRAST (10/12/2017 12:38 PM) + + + | Specimen | Performing Laboratory | + + + | | [facility] RADIOLOGY CARDIAC IMAGING | + + + + + | Narrative | + + | Report ====== Aeronautical Engineering Technologist: Rodríguez Fortune ([id number])shubham Last Trimmer: shubham | | richy Fellow: shubham lockhart Kitchen And Counter Worker: shubham lockhart Viewer: shubham | | richy Report Date: 16 Oct 2017, 09:22:25 PST Patient ------- Patient: | | RON MCKEON Neena Acc #: [id number] | | Ethnicity: N Status: Final Report [...] Formula) | | Image Quality: Good Scanner Associate Professor Of Geology: [employer] Scanner Model: Ingenia | | Scanner Serial Number: [id number] Scanner Software Platform: 5.3.15.3.1.0 Staff: Rodríguez Fortune Modality: MR Indication Name: routine Protocol Name: CMR W Flows WO Contrast | | Findings -------- Non-cardiac findings were reviewed by Dr. Curtis. This exam was | | terminated prematurely and is lmiited to title officer images. There are bilateral pleural | | [...] - 10/16/2017 9:22 AM PST | | Report======Aeronautical Engineering Technologist: Rodríguez Fortune ([id number]), shubham Rodriguezalyst: shubham | | Lorena: shubham Beckician: shubham Beckwithwer: shubham | | espinozamRalbertoort Date: 16 Oct 2017, 09:22:25 PSTPatient-------Patient: RON MCKEON | | JMedical Record Number: [id number] ID: [id number] #: [id number]: [id number]: | | Final ReportReport Number: [id number]: MaleBirthdate: 1955 (61 yrs)Study Date: 05 | | Oct 2017Study Description: CMR with Flows with ContrastReferring Physician: KHURRAM | | VIKASHITRADHABlood Pressure: /Heart rate:Height (cm): 0Weight (kg): 89BMI (kg/m ): 0BSA | | (m ): 0 (Mosteller Formula)Image Quality: GenieBeltcanner Associate Professor Of Geology: [employer] | | JewelStreetScHEMS Technology Model: IntelliChem Serial Number: [id number] Software Platform: | | 5.3.15.3.1.0Staff: Rodríguez FortuneModality: MRIndication Name: routineProtocol Name: | | CMR W Flows WO ContrastFindings--------Non-cardiac findings were reviewed by | | Ever.This exam was terminated prematurely and is lmiited to title officer images.There are | | bilateral pleural effusions. [...] Formula) | |Image Quality: Good | |Scanner Associate Professor Of Geology: [employer] | |Scanner Model: House Party | |Scanner Serial Number: [id number] | |Scanner Software Platform: 5.3.15.3.1.0 | |Staff: Rodríguez Fortune | |Modality: MR | |Indication Name: routine | |Protocol Name: CMR W Flows WO Contrast | |Findings | |-------- | |Non-cardiac findings were reviewed by Dr. Curtis. | |This exam was terminated prematurely and is lmiited to title officer images. | |There are bilateral pleural effusions. [...] [address] | | | [place] [address] | + + + CBC (HEMOGRAM) ONLY [...] | + + + | Blood | [facility] LABORATORY SERVICES, CORE [address] [place] [address] | | | [place] [address] | + + + APTT (ACT. PART. THROMBO TIME) (10/12/2017 7:01 AM) + + + + | Component | Value | Ref Range | + + + + | APTT | 50.7 (H) | 26.0 - 36.0 seconds | + + + + + + + | Specimen | Performing Laboratory | + + + | Blood | [facility] LABORATORY [facility] [address] [facility] | | | [place] [address] | + + + + + | [...] | >60 | >60 mL/min | | [facility] | | | + + + + | EGFR NON | 55 (L) | >60 mL/min | | [facility] | | | + + + + [...] | + + + | Blood | [facility] LABORATORY SERVICES, CORE [address] | | | [place] [address] | + + + + + | [...] | | ------ CBC (HEMOGRAM) | | ONLY[[id number]] Abnormal Final | | result Please view [...] | + + + | Blood | [facility] LABORATORY SERVICES, CORE [address] [place] [address] | | | [place] [address] | + + + + + | [...] + + + | | [facility] [place], POINT OF CARE TESTS [address] | | | [place] [address] | + + + CAPILLARY BLOOD GLUCOSE [...] [address] | | | [place] [address] | + + + CULTURE, SPUTUM (10/11/2017 5:45 PM) + + + | Specimen | Performing Laboratory | + + + | Sputum | [facility] [address] [place], [place] | | | [address] | + + + + + | Narrative | + + | Culture Report: This culture has been discontinued. Gram Stain: Squamous | | epithelial cells in the specimen indicate the presence of significant oropharyngeal | | contamination. CRITICAL RESULTS Results called to and verified by: Vicki | | Amy at phone # [facility] on: 10/12/2017 8:10:02 AM PST by: [id number] | + + APTT (ACT. PART. THROMBO TIME) (10/11/2017 4:49 PM) + + + + | Component | Value | Ref Range | + + + + | APTT | 39.7 (H) | 26.0 - 36.0 seconds | + + + + + + + | Specimen | Performing Laboratory | + + + | Blood | [facility] LABORATORY [facility], CORE [address] [facility] [address] | | | [place] [address] | + + + + + | [...] | + + + | Blood | [facility] LABORATORY SERVICES, CORE [address] [place] [address] | | | [facility] [address] | + + + APTT (ACT. PART. THROMBO TIME) (10/11/2017 12:43 PM) + + + + | Component | Value | Ref Range | + + + + | APTT | 45.6 (H) | 26.0 - 36.0 seconds | + + + + + + + | Specimen | Performing Laboratory | + + + | Blood | [facility], [facility] [address] [facility] | | | [place] [address] | + + + + + | [...] | + + + | Blood | [facility] LABORATORY SERVICES, SPECIAL IMM + COAG [address] [facility] | | | [place] [address] | + + + + + | Narrative | + + | Alternate forms of testing such as fructosamine should be considered for | | monitoring vermin exterminator glycemic control in patients with: Increased red cell turnover, | | certain hemoglobinopathies (e.g., HbS, HbE, HbC and thalassemia syndromes), anemias, | | blood loss, chronic liver disease and hemochromatosis (artefactually low HbA1c); iron | | deficiency anemia (artefactually high HbA1c due to enhanced glycation of hemoglobin). | | Alternate forms of testing such as fructosamine should be considered for | | monitoring senior care glycemic control in patients with: Increased [...] | | ------ CBC (HEMOGRAM) | | ONLY[[id number]] Abnormal Final | | result Please view [...] Laboratory | + + + | | [facility] DEPT OF CARDIOLOGY [address] [place] [address] | | | [place] [address] | + + + + + | Narrative | + + | [facility] Adult Echocardiography Laboratory | | [address], [place] [address] Ph: | | Pt Name: RON MCKEON Study | | Date/Time 10/11/2017 / 11:47:35 AM | | Most recent prior: 03/30/2017 Acc #: [id number] No. previous | | echos: 4 : 1955 61 years Heart Rate: 84 bpm | | Height: 69.0 in Blood Pressure: 115/68 mm/Hg | | Weight: 196.0 lb Gender: M | | BSA: 2.05 m2 Order ID: [id number] | | Colorer Hides And Skins: Shahab Sutton [facility] Referring Provider: Kimmy Low Patient | [...] use disorder who presents on transfer from [place] for consideration of | | complex PCI [...] | Wall Scoring: Report electronically signed by: [id number] Khurram Bedoya MD | | (10/11/2017, 12:59:49 PM) Final (Updated) | + + + + | Procedure Note | + + | Interface, Ecg Results - 10/11/2017 1:00 PM [facility] | | [facility] Echocardiography Laboratory [facility] | | [place], [place] [address] Pt Name: RON Chaudhary | | MIKE Study Date/Time 10/11/2017 / 11:47:35 AMMRN: [id number] Most | | recent prior: 03/30/2017Acc #: [id number] No. previous echos: 4DOB: | | 1955 61 years Heart Rate: 84 bpmHeight: 69.0 in Blood | | Pressure: 115/68 mm/HgWeight: 196.0 lb Gender: MBSA: | | 2.05 m2 Order ID: [id number] Colorer Hides And Skins: Shahab Sutton RDCSReferring | | Provider: Kimmy [...] use disorder who presents on transfer from [place] | | for consideration of complex PCI [...] Ao (prox) | | 3.70 cm 18.1 mm/i1Lcbqswkide of chamber size and geometry is accomplished | | through the incorporation of linear, volumetric, and indexed values Wall Scoring: Report | | electronically signed by: [id number] Khurram Bedoya MD (10/11/2017, 12:59:49 PM) | [...] | | | |Report electronically signed by: [id number] Khurram Bedoya MD (10/11/2017, 12:59:49 | |PM) | | | | | | | | Final (Updated) | + + X-RAY PORTABLE CHEST 1 VIEW (10/11/2017 11:24 AM) + + + | Specimen | Performing Laboratory | + + + | | [place] [facility] VOICE RECOGNITION | + + + + + | Narrative | + + | STUDY: OK CHEST 1 VIEW COMPARISON: 03/21/17. HISTORY: Cough. [...] Note | + + | Service Account, Gocella Res In Interface - 10/11/2017 1:51 PM PST STUDY: OK CHEST 1 | | VIEW COMPARISON: 03/21/17.HISTORY: [...] + + + | Blood | [facility], CORE [address] [facility] | | | [place] [address] | + + + CBC ONLY (10/11/2017 6:31 AM) + + + | Specimen | Performing Laboratory | + + + | Blood | | + + + + + | Narrative | + + | The following orders were created for panel order CBC ONLY. | | Procedure | | Abnormality Status | | --------- | | ------ CBC (HEMOGRAM) | | ONLY[[id number]] Abnormal Final | | result Please view [...] | + + + | Blood | [facility] LABORATORY [facility], CORE [address] [facility] | | | [place] [address] | + + + + + | [...] | >60 | >60 mL/min | | [facility] | | | + +---------+ + | EGFR NON | >60 | >60 mL/min | | [facility] | | | + +---------+ + | [...] + + + | Blood | [facility], CORE [address] [facility] | | | [place] [address] | + + + + + | [...] | + + + | Blood | [facility] LABORATORY SERVICES, CORE [address] [place] [address] | | | [place] [address] | + + + APTT (ACT. PART. THROMBO TIME) (10/10/2017 11:27 PM) + +-------+ + | Component | Value | Ref Range | + +-------+ + | APTT | 29.5 | 26.0 - 36.0 seconds | + +-------+ + + + + | Specimen | Performing Laboratory | + + + | Blood | [facility] [address] [facility] | | | [place] [address] | + + + + + | [...] | + + + | Blood | [facility] LABORATORY SERVICES, CORE [address] [facility] | | | [place] [address] | + + + + + | [...] | | ------ CBC (HEMOGRAM) | | ONLY[[id number]] Abnormal Final | | result Please view [...] | + + + | Blood | [facility]OR[facility], CORE [address] [facility] | | | [place] [address] | + + + + + | [...] Laboratory | + + + | | [facility] [address] [place] [address] | | | [place] [address] | + + + ORDERS OTHER (10/10/2017)CARDIOLOGY (10/10/2017)CARDIOLOGY (10/10/2017)CARDIOLOGY (10/10/19)in this encounter Visit Diagnoses + + | Diagnosis | + + | NSTEMI (non-ST elevated myocardial infarction) (HCC) - Primary | + + | Acute myocardial infarction, subendocardial infarction, episode of care unspecified | + + | Coronary 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 involving wilton coronary artery of wilton heart, angina | | presence unspecified | [...] Coronary atherosclerosis of unspecified type of vessel, wilton or graft | + + | Paroxysmal atrial flutter (HCC) | + + | Atrial flutter | + + | Chronic systolic congestive heart failure (HCC) | + + | Chronic systolic heart failure | + + | Encounter for insertion of cardiac resynchronization therapy defibrillator (LINUX SYSTEM ADMINISTRATOR-D) | + + | Influenza, pneumonia | [...] 12:42 | | | | | Starting [facility] 10/15/17 at 1242, | | PST | [...] Units | | | | PRN, Starting [facility] 10/15/17 at 1207, | | PST | | | | | Until Discontinued | | | | | | + +-------+ +--------+---+---+ +---+---+ | | | +---+---+ + +-------+ +--------+---+---+ | heparin 1,000 unit/mL injection | Given | 10/15/2017 | 1,500 | | | | intravenous, INTRAPROCEDURE | | 12:20 | Units | | | | PRN, Starting [facility] 10/15/17 at 1220, | | PST | [...] 13:05 | | | | | Starting [facility] 10/15/17 at 1305, | | PST | | | | | Until Discontinued | | | | | | + +-------+ +--------+---+---+ +---+---+ | | | +---+---+ + +-------+ +------+---+---+ | iohexol (OMNIPAQUE) 300 mg | Given | 10/16/2017 | 7 mL | | | | iodine/mL INTRAPROCEDURE PRN, | | 14:27 | | | | | Starting [facility] 10/16/17 at 1427, | | PST | [...]
--- OUTSIDE RECORDS SUMMARY | ~2017-12-16 | XMS | Encounter Summary ---
Demographics + + + | Address | [address] | | | [place] [address] | + + + | Home Phone [...] + + | Author | [facility] | | | and [place] | + + + | Organization | [facility] | | | and [place] | + + + | Address | Unknown | + + + | Phone | Unavailable | + + + Support + + + + + | Name | Relationship | Address | Phone | + + + + + | [place] Will | ECON | [address] | | | | | [address] | | | | | [address] | | + + + + + Care Team Providers + +------+ + | Care Flight Operation Coordinator Name | Role | Phone | [...] | | | | | | | [place] | | | | | | | [...] + | 10/05/ | Anesthesia | [facility] | Yong Napier MD | | | 2018 | Event | [facility] | [address] | | | | | [address] | [place] | | | | | [place] | [address] | | | | | [address] | | | | | | [phone] | | | +--------+ + + + + Anesthesia Record + + + + + | Procedure Name | Responsible | Anesthesia Start | Anesthesia Stop Time | | | Anesthesiologist | Time | | + + + + + | IZAIAH (N/A Mouth) | Yong Napier MD | 10/05/17 1049 | 10/05/17 1112 | + + + + + +----+---+ + + | Da | T | Event | Comment | | te | i | | | | | m | | | | | e | | | +----+---+ + + | 01 | 1 | An Start | Reassessment prior to anesthesia induction/procedure. | | /2 | 0 | | [...] Right; anterior; | 03/15/17 0549 by | | | | wrist; puncture; sheath remain | Penny Singh, | | | | inserted--used a tegaderm to hold | Technologist | | | | in place | | | +--------+ + + + | Arteri | 03/15/17; 0554; BUBBA ; 6 Fr.; | 03/15/17 0554 by | | | al | Right; Radial; No (used a | Penny Singh, | | | Sheath | tegaderm to remain in place); | Technologist | | | | Injectable (1CC OF LIDO 1%); Yes | | | +--------+ + + + | Wound | 03/15/17; 0616; Right; groin; | 03/15/17 0616 by | | | | puncture; sheath remain inserted; | Penny Singh, | | | | sutured with 2-0 silk and used a | Technologist | | | | tegaderm to hold in place | | | +--------+ + + + | Arteri | 03/15/17; 622; BUBBA ; 8 Fr.; | 03/15/17622 by | | | al | Right; Femoral; Yes (2-0 SILK ); | Penny Singh, | | | Sheath | Injectable (10cc lido 1% ); Yes | Technologist | | +--------+ + + + | IAB | 03/15/17; 623; Yes; | 03/15/17623 by | | | Cathet | Chlorhexidine/Isopropyl Alcohol; | Penny Singh, | | | er | Yes; No; All; Intervent. | Technologist | | | | Radiology; Observer; BUBBA ; [...] + + + | Urethr | 03/15/17; 708; indicated due to | 03/15/17708 by | | | al | specific surgical procedure; All | Blas Grissom, | | | Cathet | elements; All elements; All | RN | | | er | elements; indwelling double lumen | | | | | catheter; 100% silicone; | | | | | Urethral resistance; 1; 10; 10; | | | | | none; drainage bag to dependent | | | | | drainage | | | +--------+ + + + | Airway | Placement Date: 03/15/17; | 03/15/17758 by | | | | Placement Time: 758; Attempts: | Blas Grissom, | | | | >3; Airway Type: endotracheal; | RN | | | | Size: 7 | | | +--------+ + + + | Venous | 03/15/17; 844; pavithra ; 6 Fr.; | 03/15/17 0845 by | | | | Right; Femoral; Yes (2-0 silk); | Penny Singh, | | | Sheath | Injectable; Yes | Technologist | | +--------+ + + + | Wound | 10/03/17; 1436; Right; anterior; | 10/03/17 1436 by | | | | groin; puncture; Sheath sutured | Nikki Jarvis, | | | | into place with 0-silk, Then | Technologist | | | | connected to Arterial line | | | +--------+ + + + | Urethr | 10/03/17; 06; yes; indicated | 10/03/17 06 by | [...] | | | | | d/c.; 10/08/17; 45 | | | +--------+ + + + | Airway | Placement Date: 10/03/17; | 10/03/17929 by | 10/05/171945 by | | | Placement Time: 929; Airway | Shoaib Bueno, | Ashleigh Pack RN | | | Type: endotracheal; Size: 7.5; | ACCOUNT DEVELOPMENT SPECIALIST | | | | Removal: per protocol; Removal | | | | | Date: 10/05/17; Removal Time: | | | | | 1946 | | | +--------+ + + + | Periph | 10/03/17; 929; Left; Forearm; | 10/03/17929 by | 10/07/17 011 by | | eral | [id number]-[id number] catheter system; | Demetra Kirk RN | [...] Dalia Diaz RN | | IV | [id number]-gza-efnspp catheter system; | | | | | 18 gauge; 0; site symptomatic; | | | | | 10/07/17; 0117 | | | +--------+ + + + | NG/OG | 10/03/17; 2317; Jeffy sump; | 10/03/172317 by | 10/05/17 1315 by | | | center mouth; stomach; medication | Ashleigh Pack RN | Demetra Kirk RN | | | administration, gastric | | | | | decompression; 10/05/17; 1315 | | | +--------+ + + + in this encounter Social History + +-------+ [...] | | | | | | [place] [address] | | | | | | [phone] | | | | | | | | +--------+ + + + + | 12/24/ | Office | Cardiac | Randy Figueroa, | | | 2017 | Visit | Rehabilitation | MD [address] | | | | | | [place], | | | | | | [place] [address] | | | | | | [phone] | | | | | | | | +--------+ + + + + | 12/31/ | Office | Cardiac | Randy Figueroa, | | | 2017 | Visit | Rehabilitation | MD [address] | | | | | | [place], | | | | | | [place] [address] | | | | | | [phone] | | | | | | | | +--------+ + + + + | 01/07/ | Office | Cardiac | Randy Figueroa, | | | 2017 | Visit | Rehabilitation | MD [address] | | | | | | [place], | | | | | | [place] [address] | | | | | | [phone] | | | | | | | | +--------+ + + + + | 01/13/ | Clinical | Cardiology | | | | 2017 | Support | | | | +--------+ + + + + | 01/13/ | Office | Cardiology | Jenny, | | | 2017 | Visit | | [address] | | | | | | [place], | | | | | | [place] [address] | | | | | | [phone] | | | | | | | | +--------+ + + + + | 01/14/ | Office | Cardiac | Randy Figueroa, | | | 2017 | Visit | Rehabilitation | MD [address] | | | | | | [place], | | | | | | [place] [address] | | | | | | [phone] | | | | | | | | +--------+ + + + + | 01/21/ | Office | Cardiac | Randy Figueroa, | | | 2017 | Visit | Rehabilitation | MD [address] | | | | | | [place], | | | | | | [place] [address] | | | | | | [phone] | | | | | | | | +--------+ + + + + | 01/28/ | Office | Cardiac | Randy Figueroa, | | | 2017 | Visit | Rehabilitation | MD [address] | | | | | | [place], | | | | | | [place] [address] | | | | | | [phone] | | | | | | | | +--------+ + + + + | 02/04/ | Office | Cardiac | Randy Figueroa, | | | 2017 | Visit | Rehabilitation | MD [address] | | | | | | [place], | | | | | | [place] [address] | | | | | | [phone] | | | | | | | | +--------+ + + + + | 02/11/ | Office | Cardiac | Randy Figueroa, | | | 2017 | Visit | Rehabilitation | MD [address] | | | | | | [place], | | | | | | [place] [address] | | | | | | [phone] | | | | | | | | +--------+ + + + + | 02/18/ | Office | Cardiac | Randy Figueroa, | | | 2017 | Visit | Rehabilitation | MD [address]av[address] | | | | | | [place], | | | | | | [place] [address] | | | | | | [phone] | | | | | | | | +--------+ + + + + | 02/24/ | Procedure | Physical Medicine | Prosper Esteves | | | 2017 | visit | and Rehabilitation | MD [address] | | | | | | [place] | | | | | | [address] | | | | | | | | +--------+ + + + + | 02/25/ | Office | Cardiac | Randy Figueroa, | | | 2017 | Visit | Rehabilitation | MD [address] | | | | | | [place], | | | | | | [place] [address] | | | | | | [phone] | | | | | | | | +--------+ + + + + | 03/04/ | Office | Cardiac | Randy Figueroa, | | | 2017 | Visit | Rehabilitation | MD [address] | | | | | | [place], | | | | | | [place] [address] | | | | | | [phone] | | | | | | | | +--------+ + + + + | 03/11/ | Office | Cardiac | Randy Figueroa, | | | 2017 | Visit | Rehabilitation | MD [address] | | | | | | [place], | | | | | | [place] [address] | | | | | | [phone] | | | | | | | | +--------+ + + + + as of this encounter Visit Diagnoses Not on filein this encounter Administered Medications + +---------+ +------+-------+------+ | Medication Order | MAR | Action | Dose | Rate | Site | | | Action | Date | | | | + +---------+ +------+-------+------+ | lactated ringers (LR) infusion | New Bag | | | 100 | | | at 60 mL/hr, Intravenous, | | 8 21:41 | | mL/hr | | | CONTINUOUS, Starting 10/03/17 | | PST | | | | | at 1945 | | | | | | + +---------+ +------+-------+------+ + + +---+ +---+ | Rate/Dose [...] lidocaine (PF) 1% injection | Given | | 2 mLs | | | | Infiltration, PRN, Starting Mon | | 8 10:56 | | | | | 10/05/17 at 1056, Anesthesia | | PST | | | | | Intra-op | | | | | | + +-------+ +-------+---+---+ +---+---+ | | | +---+---+ + +---------+ + + +---+ | propofol (DIPRIVAN) injection | New Bag | 1/29/201 | 50 | 28 mL/hr | | | Intravenous, CONTINUOUS PRN, | | 8 10:45 | mcg/kg/m | | | | Starting 10/05/17 at 1045, | | PST | in | | | | Anesthesia Intra-op | | | | | | + +---------+ + + +---+ + + + + +---+ | Rate/Dose Change | | 100 | 55.9 | | | | 8 10:54 | mcg/kg/m | mL/hr | | | | PST | in | | | + + + + +---+ | Rate/Dose Change | | 50 | 28 mL/hr | | | | 8 11:11 | mcg/kg/m | | | | | PST | in | | | + + + + +---+ +---+---+ | | | +---+---+ + +-------+ +--------+---+---+ | propofol (DIPRIVAN) injection | Given | | 100 mg | | | | Intravenous, PRN, Starting Mon | | 8 10:55 | | | | | 10/05/17 at 1100, Anesthesia | | PST | | | | | Intra-op | | | | | | + +-------+ +--------+---+---+ +---+---+ | | | +---+---+ in this encounter"
--- OUTSIDE RECORDS SUMMARY | ~2017-12-16 | XMS | Encounter Summary ---
Demographics + + + | Address | [address] | | | [place] [address] | + + + | Home Phone | | + + + | Preferred Language | Unknown | + + + | Marital Status | | + + + | Yazdanism Affiliation | Unknown | + + + | Race | Unknown | + + + | Ethnic Group | Unknown | + + + Author + + + | Author | [facility] | | | and [place] | + + + | Organization | [facility] | | | and [place] | + + + | Address | Unknown | + + + | Phone | Unavailable | + + + Support + + + + + | Name | Relationship | Address | Phone | + + + + + | [place] Will | ECON | [address] | | | | | [place] | | | | | [address] | | + + + + + Care Team Providers + +------+ + | Care Phone Operator Name | Role | Phone | + +------+ + | Chato Matson MD | PCP | | + +------+ + Encounter Details +--------+ + + + + | Date | Type | Department | Care Team | Description | +--------+ + + + + | 10/20/ | Abstract | [facility] | Jenny, | | | 2018 | | CARDIOLOGY [address] | [address] [employer] [address] | | | | | [place], | [place], | | | | | [place] [address] | [place] [address] | | | | | [phone] | [phone] | | | | | | | [...] | | | | | | [place] [address] | | | | | | [phone] | | | | | | | | +--------+ + + + + | 12/24/ | Office | Cardiac | Randy Figueroa, | | | 2017 | Visit | Rehabilitation | MD [address] | | | | | | [place], | | | | | | [place] [address] | | | | | | [phone] | | | | | | | | +--------+ + + + + | 12/31/ | Office | Cardiac | Randy Figueroa, | | | 2017 | Visit | Rehabilitation | MD [address] | | | | | | [place], | | | | | | [place] [address] | | | | | | [phone] | | | | | | | | +--------+ + + + + | 01/07/ | Office | Cardiac | Randy Figueroa, | | | 2017 | Visit | Rehabilitation | MD [address] | | | | | | [place], | | | | | | [place] [address] | | | | | | [phone] | | | | | | | | +--------+ + + + + | 01/13/ | Clinical | Cardiology | | | | 2017 | Support | | | | +--------+ + + + + | 01/13/ | Office | Cardiology | Jenny, | | | 2017 | Visit | | [address] | | | | | | [place], | | | | | | [place] [address] | | | | | | [phone] | | | | | | | | +--------+ + + + + | 01/14/ | Office | Cardiac | Randy Figueroa, | | | 2017 | Visit | Rehabilitation | MD [address] | | | | | | [place], | | | | | | [place] [address] | | | | | | [phone] | | | | | | | | +--------+ + + + + | 01/21/ | Office | Cardiac | Randy Figueroa, | | | 2017 | Visit | Rehabilitation | MD [address] | | | | | | [place], | | | | | | [place] [address] | | | | | | [phone] | | | | | | | | +--------+ + + + + | 01/28/ | Office | Cardiac | Randy Figueroa, | | | 2017 | Visit | Rehabilitation | MD [address] | | | | | | [place], | | | | | | [place] [address] | | | | | | [phone] | | | | | | | | +--------+ + + + + | 02/04/ | Office | Cardiac | Randy Figueroa, | | | 2017 | Visit | Rehabilitation | MD [address] | | | | | | [place], | | | | | | [place] [address] | | | | | | [phone] | | | | | | | | +--------+ + + + + | 02/11/ | Office | Cardiac | Randy Figueroa, | | | 2017 | Visit | Rehabilitation | MD [address] | | | | | | [place], | | | | | | [place] [address] | | | | | | [phone] | | | | | | | | +--------+ + + + + | 02/18/ | Office | Cardiac | Randy Figueroa, | | | 2017 | Visit | Rehabilitation | MD [address] | | | | | | [place], | | | | | | [place] [address] | | | | | | [phone] | | | | | | | | +--------+ + + + + | 02/24/ | Procedure | Physical Medicine | Prosper Esteves | | | 2017 | visit | and Rehabilitation | MD [address] | | | | | | [place] | | | | | | [address] | | | | | | | | +--------+ + + + + | 02/25/ | Office | Cardiac | Randy Figueroa, | | | 2017 | Visit | Rehabilitation | MD [address] | | | | | | [place], | | | | | | [place] [address] | | | | | | [phone] | | | | | | | | +--------+ + + + + | 03/04/ | Office | Cardiac | Randy Figueroa, | | | 2017 | Visit | Rehabilitation | MD [address] | | | | | | [place], | | | | | | [place] [address] | | | | | | [phone] | | | | | | | | +--------+ + + + + | 03/11/ | Office | Cardiac | Randy Figueroa, | | | 2017 | Visit | Rehabilitation | MD [address] | | | | | | [place], | | | | | | [place] [address] | | | | | | [phone] | | | | | | | | +--------+ + + + + as of this encounter Results External Lab: BUN (10/17/2017) + +-------+ + | Component | Value | Ref Range | + +-------+ + | BUN, External | 16 | | + +-------+ + External Lab: Glucose (10/17/2017) + +-------+ + | Component | Value | Ref Range | + +-------+ + | Glucose, External | 113 | | + +-------+ + External Lab: Calcium (10/17/2017) + +-------+ + | Component | Value | Ref Range | + +-------+ + | Calcium, External | 7.4 | | + +-------+ + External Lab: Carbon Dioxide (10/17/2017) + +-------+ + | Component | Value | Ref Range | + +-------+ + | Carbon Dioxide, | 26 | | | External | | | + +-------+ + External Lab: Chloride (10/17/2017) + +-------+ + | Component | Value | Ref Range | + +-------+ + | Chloride, External | 104 | | + +-------+ + External Lab: Potassium (10/17/2017) + +-------+ + | Component | Value | Ref Range | + +-------+ + | Potassium, External | 4.5 | | + +-------+ + External Lab: Sodium (10/17/2017) + +-------+ + | Component | Value | Ref Range | + +-------+ + | Sodium, External | 137 | | + +-------+ + External Lab: CBC (10/17/2017) + +-------+ + | Component | Value | Ref Range | + +-------+ + | WBC, External | 8.59 | | + +-------+ + | HGB, External | 11.6 | | + +-------+ + | HCT, External | 35.2 | | + +-------+ + | PLT, External | 226 | | + +-------+ + | MCV, External | 92 | | + +-------+ + | RDW, External | 47 | | + +-------+ + External Lab: Creatinine (10/17/2017) + +-------+ + | Component | Value | Ref Range | + +-------+ + | Creatinine, External | 1.40 | | + +-------+ + + + + | Specimen | Performing Laboratory | + + + | Blood | | + + + External Lab: Triglycerides (10/10/2017) + +-------+ + | Component | Value | Ref Range | + +-------+ + | Triglycerides, | 131 | | | External | | | + +-------+ + + + + | Specimen | Performing Laboratory | + + + | Blood | | + + + External Lab: Cholesterol, HDL (10/10/2017) + +-------+ + | Component | Value | Ref Range | + +-------+ + | HDL Cholesterol, | 21 | mg/dl | | External | | | + +-------+ + + + + | Specimen | Performing Laboratory | + + + | Blood | | + + + External Lab: Cholesterol, Total (10/10/2017) + +-------+ + | Component | Value | Ref Range | + +-------+ + | Cholesterol, Total, | 89 | mg/dl | | External | | | + +-------+ + + + + | Specimen | Performing Laboratory | + + + | Blood | | + + + External Lab: Cholesterol, LDL (10/10/2017) + +-------+ + | Component | Value | Ref Range | + +-------+ + | LDL Cholesterol, | 42 | | | External | | | + +-------+ + + + + | Specimen | Performing Laboratory | + + + | Blood | | + + + in this encounter Visit Diagnoses Not on filein this encounter"
--- OUTSIDE RECORDS SUMMARY | ~2017-12-16 | XMS | Encounter Summary ---
Demographics + + + | Address | [address] | | | [place] [address] | + + + | Home Phone [...] Author | [facility] | | | and [place] | + + + | Organization | [facility] | | | and [place] | + + + | Address | Unknown | + + + | Phone | Unavailable | + + + Support + + + + + | Name | Relationship | Address | Phone | + + + + + | [place] Will | ECON | [address] | | | | | [address] | | | | | [address] | | + + + + + Care Team Providers + +------+ + | Care Mental Retardation Nurse Name | Role | Phone | + +------+ + | Chato Matson MD | PCP | | + +------+ + Reason for Visit + + + | Reason | Comments | + + + | Blood Pressure Check | | | (Screening) | | + + + Encounter Details +--------+ + + + + | Date | Type | Department | Care Team | Description | +--------+ + + + + | 09/25/ | Telephone | [facility] | Jenny, | Blood Pressure Check | | 2017 | | CARDIOLOGY [address] | [address] | (Screening) | | | | [place], | [place], | | | | | [place] [address] | [place] [address] | | | | | [phone] | [phone] | | | | | | | [...] | | | | | | [place] [address] | | | | | | [phone] | | | | | | | | +--------+ + + + + | 12/24/ | Office | Cardiac | Randy Figueroa, | | | 2017 | Visit | Rehabilitation | MD [address]av[address] | | | | | | [place], | | | | | | [place] [address] | | | | | | [phone] | | | | | | | | +--------+ + + + + | 12/31/ | Office | Cardiac | Randy Figueroa, | | | 2017 | Visit | Rehabilitation | MD Javid Crespo | | | | | | [place], | | | | | | [place] [address] | | | | | | [phone] | | | | | | | | +--------+ + + + + | 01/07/ | Office | Cardiac | Randy Figueroa, | | | 2017 | Visit | Rehabilitation | MD Javid Crespo | | | | | | [place], | | | | | | [place] [address] | | | | | | [phone] | | | | | | | | +--------+ + + + + | 01/13/ | Clinical | Cardiology | | | | 2017 | Support | | | | +--------+ + + + + | 01/13/ | Office | Cardiology | Jenny, | | | 2017 | Visit | | [address] | | | | | | [place], | | | | | | [place] [address] | | | | | | [phone] | | | | | | | | +--------+ + + + + | 01/14/ | Office | Cardiac | Randy Figueroa, | | | 2017 | Visit | Rehabilitation | MD [address] | | | | | | [place], | | | | | | [place] [address] | | | | | | [phone] | | | | | | | | +--------+ + + + + | 01/21/ | Office | Cardiac | Randy Figueroa, | | | 2017 | Visit | Rehabilitation | MD [address] | | | | | | [place], | | | | | | [place] [address] | | | | | | [phone] | | | | | | | | +--------+ + + + + | 01/28/ | Office | Cardiac | Randy Figueroa, | | | 2017 | Visit | Rehabilitation | MD [address] | | | | | | [place], | | | | | | [place] [address] | | | | | | [phone] | | | | | | | | +--------+ + + + + | 02/04/ | Office | Cardiac | Randy Figueroa, | | | 2017 | Visit | Rehabilitation | MD [address] | | | | | | [place], | | | | | | [place] [address] | | | | | | [phone] | | | | | | | | +--------+ + + + + | 02/11/ | Office | Cardiac | Randy Figueroa, | | | 2017 | Visit | Rehabilitation | MD [address] | | | | | | [place], | | | | | | [place] [address] | | | | | | [phone] | | | | | | | | +--------+ + + + + | 02/18/ | Office | Cardiac | Randy Figueroa, | | | 2017 | Visit | Rehabilitation | MD [address] | | | | | | [place], | | | | | | [place] [address] | | | | | | [phone] | | | | | | | | +--------+ + + + + | 02/24/ | Procedure | Physical Medicine | Prosper Esteves | | | 2017 | visit | and Rehabilitation | MD [address] | | | | | | [place] | | | | | | [address] | | | | | | | | +--------+ + + + + | 02/25/ | Office | Cardiac | Randy Figueroa, | | | 2017 | Visit | Rehabilitation | MD Javid Crespo | | | | | | [place], | | | | | | [place] [address] | | | | | | [phone] | | | | | | | | +--------+ + + + + | 03/04/ | Office | Cardiac | Randy Figueroa, | | | 2017 | Visit | Rehabilitation | MD Javid Crespo | | | | | | [place], | | | | | | [place] [address] | | | | | | [phone] | | | | | | | | +--------+ + + + + | 03/11/ | Office | Cardiac | Randy Figueroa, | | | 2017 | Visit | Rehabilitation | MD Javid Crespo | | | | | | [place], | | | | | | [place] [address] | | | | | | [phone] | | | | | | | | +--------+ + + + + as of this encounter Visit Diagnoses Not on filein this encounter"
--- OUTSIDE RECORDS SUMMARY | ~2017-12-16 | XMS | Encounter Summary ---
Demographics + + + | Address | [address] | | | [place] [address] | + + + | Home Phone [...] | Author | [facility] | | | and [place] | + + + | Organization | [facility] | | | and [place] | + + + | Address | Unknown | + + + | Phone | Unavailable | + + + Support + + + + + | Name | Relationship | Address | Phone | + + + + + | [place] Will | ECON | [address] | | | | | [address] | | | | | [address] | | + + + + + Care Team Providers + +------+ + | Care Warehouse Order Puller Name | Role | Phone | + [...] Description | +--------+---------+ + + + | 12/10/ | Office | [facility] | Randy Figueroa, | Acute anterior wall | | 2018 | Visit | [facility] | MD [address] | [place] ([facility]) (Primary | | | | REHABILITATION [address] [place] [place], | Dx) | | | | [address] [place] | [place] [address] | | | | | [place] [address] | [phone] | | | | | [phone] | | | +--------+---------+ + + + [...] encounter Progress Notes Cheri Harvey RRT - 12/10/2017 0900 PDTFormatting of this note may be differ ent from the original. LOCATED [facility]IN [facility] CARDIAC REHABIL[facility]ATION [address] [place] [address] Cardiac Rehab Date: 12/10/2017 Patient Information Patient Name: Bob Will Date of : 1955 Age: 62 y.o. Encounter Diagnoses Code Name Primary? I21.09 Acute anterior wall [place] (HCC) Yes Number of Visits Approved: 36 Taken Medications Today? Yes Any Changes in Medications? No Any Problems to Report? No Pain Level? 0/10 Denies any adverse symptoms during exercise. Sinus rhythm without ectopy. SBP with drop from 100 SP 92. Compliant with medications and therapeutic lifestyle changes. Continue monitored exercise. Any abnormal vital signs or rhythm strips will be reported in progress note. Electronically signed by: Cheri Harvey, BARRON, 12/10/2017 9:32 Patient Name: Bob Will/: 1955/ in this [...] | | | | | | [place] [address] | | | | | | [phone] | | | | | | | | +--------+ + + + + | 12/24/ | Office | Cardiac | Randy Figueroa, | | | 2017 | Visit | Rehabilitation | MD [address] | | | | | | [place], | | | | | | [place] [address] | | | | | | [phone] | | | | | | | | +--------+ + + + + | 12/31/ | Office | Cardiac | Randy Figueroa, | | | 2017 | Visit | Rehabilitation | MD [address] | | | | | | [place], | | | | | | [place] [address] | | | | | | [phone] | | | | | | | | +--------+ + + + + | 01/07/ | Office | Cardiac | Randy Figueroa, | | | 2017 | Visit | Rehabilitation | MD [address] | | | | | | [place], | | | | | | [place] [address] | | | | | | [phone] | | | | | | | [...] | | | | | | [place] [address] | | | | | | [phone] | | | | | | | | +--------+ + + + + | 01/14/ | Office | Cardiac | Randy Figueroa, | | | 2017 | Visit | Rehabilitation | MD Javid Crespo | | | | | | [place], | | | | | | [place] [address] | | | | | | [phone] | | | | | | | | +--------+ + + + + | 01/21/ | Office | Cardiac | Randy Figueroa, | | | 2017 | Visit | Rehabilitation | MD Javid Crespo | | | | | | [place], | | | | | | [place] [address] | | | | | | [phone] | | | | | | | | +--------+ + + + + | 01/28/ | Office | Cardiac | Randy Figueroa, | | | 2017 | Visit | Rehabilitation | MD Jav[address] | | | | | | [place], | | | | | | [place] [address] | | | | | | [phone] | | | | | | | | +--------+ + + + + | 02/04/ | Office | Cardiac | Randy Figueroa, | | | 2017 | Visit | Rehabilitation | MD [address] | | | | | | [place], | | | | | | [place] [address] | | | | | | [phone] | | | | | | | | +--------+ + + + + | 02/11/ | Office | Cardiac | Randy Figueroa, | | | 2017 | Visit | Rehabilitation | MD Javid Crespo | | | | | | [place], | | | | | | [place] [address] | | | | | | [phone] | | | | | | | | +--------+ + + + + | 02/18/ | Office | Cardiac | Randy Figueroa, | | | 2017 | Visit | Rehabilitation | MD Javid Crespo | | | | | | [place], | | | | | | [place] [address] | | | | | | [phone] | | | | | | | | +--------+ + + + + | 02/24/ | Procedure | Physical Medicine | Prosper Esteves | | | 2017 | visit | and Rehabilitation | MD [address] | | | | | | [place] | | | | | | [address] | | | | | | | | +--------+ + + + + | 02/25/ | Office | Cardiac | Randy Figueroa, | | | 2017 | Visit | Rehabilitation | MD Javid Crespo | | | | | | [place], | | | | | | [place] [address] | | | | | | [phone] | | | | | | | | +--------+ + + + + | 03/04/ | Office | Cardiac | Randy Figueroa, | | | 2017 | Visit | Rehabilitation | MD Javid Crespo | | | | | | [place], | | | | | | [place] [address] | | | | | | [phone] | | | | | | | | +--------+ + + + + | 03/11/ | Office | Cardiac | Randy Figueroa, | | | 2017 | Visit | Rehabilitation | MD Javid Crespo | | | | | | [place], | | | | | | [place] [address] | | | | | | [phone] | | | | | | | | +--------+ + + + + as of this encounter Visit Diagnoses + + | Diagnosis | + + | Acute anterior wall [place] (HCC) - Primary | + + | Acute myocardial infarction of other anterior wall, episode of care unspecified | + +"
--- OUTSIDE RECORDS SUMMARY | ~2017-12-16 | XMS | Encounter Summary ---
Demographics + + + | Address | [address] | | | [place] [address] | + + + | Home Phone [...] Author | [facility] | + + + | Organization | [facility] | + + + | Address | Unknown | + + + | Phone | Unavailable | + + + Support + + + + + | Name | Relationship | Address | Phone | + + + + + | ANNA MCKEON | ECON | [address] | | | | | [place] [address] | | + + + + + Care Team Providers + +------+ + | Care Mathematical Scientist Name | Role | Phone | [...] Pharmacy | | | | | | [address] | | | | | | [facility] | | | | | | [place], [place] | | | | | | [address] | | | +--------+ + + + [...]
--- OUTSIDE RECORDS SUMMARY | ~2017-12-16 | XMS | Clinical Summary ---
Demographics + + + | Address | [address] | | | [place] [address] | + + + | Home Phone [...] + | Author | [facility] | | | and [place] | + + + | Organization | [facility] | | | and [place] | + + + | Address | Unknown | + + + | Phone | Unavailable | + + + Support + + + + + | Name | Relationship | Address | Phone | + + + + + | Venice Mckeon | ECON | [address] | | | | | #[place] | | | | | [address] | | + + + + + Care Team Providers + +------+ + | Care Home Care Scheduler Name | Role | Phone | [...] | | | + + +--------+---------+------+------+-------+ | nystatin | Genital region | | | 02/0 | | Activ | | (MYCOSTATIN) powder | | | | 2/20 | | [...] | | Activ | | (VITAMIN D-3) 27364 | a week. | | | | | e | | units CAPS | | | | | | | + + +--------+---------+------+------+-------+ | lisinopril | Take 10 mg by mouth | | | | | Activ | | (PRINIVIL, ZESTRIL) | Daily. | | | | | e | | 10 mg tablet | | [...] tablet by | 30 | 3 | 02/1 | | Activ | | succinate | mouth Daily. | tablet | | 2/20 | | e | | (TOPROL-XL) 25 mg 24 | | | | 18 | | | | hr tablet | | | | | | | + + +--------+---------+------+------+-------+ | atorvaSTATin | Take 1 tablet by | 30 | 5 | 03/0 | | Activ | | (LIPITOR) 80 MG | mouth nightly. | tablet | | 6/20 | | e | | tablet | | | | 18 | | | + + +--------+---------+------+------+-------+ | pantoprazole | Take 1 tablet by | 60 | 5 | 03/0 | | Activ | | (PROTONIX) 40 mg | mouth 2 times daily | tablet | | 6/20 | | e | | tablet | (before meals). | | | 18 | | | [...] Noted Date | + + + | GERD (gastroesophageal reflux disease) | 11/12/2017 | + + + | Tachycardia | 10/20/2017 | + + + + + | Overview: Electrophysiology Study 10/16/17 shows positive EP | | study for inducible ventricular tachycardia. | + + + + + | SERVER SERVICE ASSISTANT-D (AICD) Medtronic 10/16/17 EULOGIO Darby | 10/19/2017 | + + + + + | Overview: Formatting of this note may be different from the | | original. MODEL NAME MODEL# SERIAL# DATE IMPLANTED GENERATOR | | Medtronic [id number] 10/16/17 RV LEAD Medtronic [id number] 62 | | [id number] 10/16/17 A LEAD Medtronic [id number] 10/16/17 | | Coronary Sinus LEAD Medtronic 4598 88 [id number] 10/16/17 | | Indication: ischemic cardiomyopathy with reduced EF 30-35% | |Coronary Sinus LEAD Medtronic 4598 88 [id number] 10/16/17 | |Indication: ischemic cardiomyopathy with reduced EF 30-35% | + + + + + | Implantable defibrillator reprogramming/check | 10/19/2017 | + + + | H/O atrial flutter | 10/19/2017 | + + + | Pulmonary edema | 10/03/2017 | + + + | Ischemic cardiomyopathy | 05/26/2017 | + + + + + | Overview: S/P Medtronic SERVER SERVICE ASSISTANT-D 10-16-17 Dr Darby, [facility] Scan | | 10/13/17 shows No Significant tracer uptake within mid- to - | | distal anterior wall/interventricular septum and apex | | corresponding to same non- perfused areas seen on myocardial rest | | perfusion scan , compatible with nonviable myocardium in these | | regions. | + + + + + | CAD (coronary 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) | 04/06/2017 | + + + + + | [...] flow to distal LAD PLAN: | | the patient is presenting with fever, leukocytosis, possible | | pneumonitis on chest x-ray, and high grade ostial LAD and | | circumflex in-stent stenoses with new left bundle branch block | | and elevated troponin. The patient's primary illness may be | | pneumonitis with septic shock with resulting hypotension causing | | myocardial ischemia., the patient will require coronary | | revascularization at some point. I recommend that we continue | | treating the patient with broad-spectrum antibiotics, fluid | | support, ventilatory support and pressors as needed, the | | patient's left ventricular filling pressures and unchanged left | | ventricular function and echocardiogram do not suggest acute | | cardiac decompensation as his primary reason for hypotension. If | | the patient shows signs of cardiac instability we will transfer | | the patient to [place] for consideration of urgent coronary | | revascularization. Delmer Gomez M.D., | | Nora.Echocardiogram 06/04/17 shows Mild left atrial dilatation, | | Normal left ventricular size. There is a mild hypokinesis of the | | anteriorwall. Overall, left ventricular systolic function is | | low-normal. LVEF is50-55%,Normal valvular structure,Mild | | pulmonary hypertension with a peak systolic pressure 40-45 | | mmHg,Normal IVC with normal respiratory collapse,When compared to | | echocardiography on 05/07/17, left ventricular systolicfunction | | is significantly improved and now normalized. Echocardiogram | | 05/07/17 shows, Mild left atrial dilatation, Normal left | | ventricular size. There is a segmental wall motionabnormality | | with thinning and severe hypokinesis of the entire anterior | | andanteroseptal region. Overall, left ventricular systolic | | function ismoderately decreased. LVEF is 35-40%, Grade 1 left | | ventricular diastolic dysfunction,Mild mitral valve agitation, | | Normal right-sided pressure, Normal IVC with normal respiratory | | collapse. | + + + + + | Acute anterior wall PR (HCC) | 04/03/2017 | + + + [...] resdual | | stenosis. | + + Encounters +--------+ + + + + | Date | Type | Specialty | Care Team | Description | +--------+ + + + + | 12/10/ | Office | | Randy Figueroa, | Acute anterior wall | | 2017 | Visit | | MD | PR ([facility]) (Primary | | | | | | Dx) | +--------+ + + + + | 12/03/ | Office | | Randy Figueroa, | Coronary artery | | 2017 | Visit | | MD | disease involving | | | | | | chinik coronary | | | | | | artery of chinik | | | | | | heart without angina | | | | | | pectoris (Primary | | | | | | Dx); Ischemic | | | | | | cardiomyopathy | +--------+ + + + + | 12/01/ | Telephone | | Jenny | Emiliano (appointment | 2017 | | | ADARSH Sy | confusion) | +--------+ + + + + | 11/26/ | Office | | Randy Figueroa, | Coronary artery | | 2017 | Visit | | MD | disease involving | | | | | | chinik coronary | | | | | | artery of chinik | | | | | | heart without angina | | | | | | pectoris (Primary | | | | | | Dx) | +--------+ + + + + | 11/24/ | Hospital | | Jenny, | Coronary artery | | 2017 | Encounter | | ADARSH Sy | disease involving | | | | | Tiki Linn, | chinik coronary | | | | | Technologist | artery of chinik | | | | | | heart without angina | | | | | | pectoris | +--------+ + + + + | 11/24/ | Hospital | | Jenny, | Ischemic | | 2017 | Encounter | | AADRSH Sy | cardiomyopathy | | | | | Twan Spann, | | | | | | Technologist | | +--------+ + + + + | 11/19/ | Office | | Randy Figueroa, | Ischemic | | 2017 | Visit | | | cardiomyopathy | | | | | | (Primary Dx) | +--------+ + + + + | 11/12/ | Implant | | Randy Figueroa, | Implantable | | 2017 | Monitor | | | defibrillator | | | | | | reprogramming/check | | | | | | (Primary Dx); SERVER SERVICE ASSISTANT-D | | | | | | (AICD) Medtronic | | | | | | 10/16/17 [facility] Wilner; | | | | | | Ischemic | | | | | | cardiomyopathy | +--------+ + + + + | 11/11/ | Office | | Randy Figueroa, | Ischemic | | 2017 | Visit | | Maria Esther Alberto, | cardiomyopathy | | | | | RN | | +--------+ + + + + | 11/11/ | Office | | Jenny | SERVER SERVICE ASSISTANT-D (AICD) | | 2017 | Visit | | ADARSH yS | Medtronic 10/16/17 | | | | | | TNMENDY Darby | | | | | | (Primary Dx); | | | | | | Tachycardia; | | | | | | Ischemic | | | | | | cardiomyopathy; | | | | | | Coronary artery | | | | | | disease involving | | | | | | chinik coronary | | | | | | artery of chinik | | | | | | heart without angina | | | | | | pectoris; Acute | | | | | | anterior wall PR | | | | | | ([facility]); H/O atrial | | | | | | flutter; Implantable | | | | | | defibrillator | | | | | | reprogramming/check | +--------+ + + + + | 11/11/ | Procedure | | Juan Roach | Implantable | | 2017 | visit | | MD Vahid | defibrillator | | | | | | reprogramming/check | | | | | | (Primary Dx); SERVER SERVICE ASSISTANT-D | | | | | | (AICD) Medtronic | | | | | | 10/16/17 EULOGIO Darby; | | | | | | Ischemic | | | | | | cardiomyopathy | +--------+ + + + + | 11/10/ | Refill | | Jenny, | Medication Refill | | 2017 | | | ADARSH Sy | | +--------+ + + + + | 11/10/ | Telephone | | Jenny | Other | | 2018 | | | ADARSH Sy | | +--------+ + + + + | 11/05/ | Telephone | | Jenny | Other | | 2017 | | | ADARSH Sy | | +--------+ + + + + | 10/26/ | Clinical | | Randy Figueroa, | Tachycardia (Primary | | 2017 | Support | | MD | Dx); Ischemic | | | | | | cardiomyopathy; | | | | | | SERVER SERVICE ASSISTANT-D (AICD) | | | | | | Medtronic 10/16/17 | | | | | | EULOGIO Darby | +--------+ + + + + | 10/20/ | Abstract | | Jenny, | | | 2017 | | | ADARSH Sy | | +--------+ + + + + | 10/19/ | Office | | Jenny | Ischemic | | 2017 | Visit | | ADARSH Sy | cardiomyopathy | | | | | | (Primary Dx); | | | | | | Coronary artery | | | | | | disease involving | | | | | | chinik coronary | | | | | | artery of chinik | | | | | | heart without angina | | | | | | pectoris; Acute | | | | | | anterior wall PR | | | | | | ([facility]); SERVER SERVICE ASSISTANT-D (AICD) | | | | | | Medtronic 10/16/17 | | | | | | EULOGIO Darby; | | | | | | Tachycardia | +--------+ + + + + | 10/19/ | Orders Only | | Randy Figueroa, | Ischemic | | 2017 | | | MD | cardiomyopathy | | | | | | (Primary Dx) | +--------+ + + + + | 10/05/ | Anesthesia | | Yong Napier MD | | | 2017 | Event | | | | +--------+ + + + + | 10/05/ | Procedure | | | | | 2018 | Pass | | | | +--------+ + + + + | 10/05/ | Surgery | | Terry Weir MD | EGD | | 2017 | | | | | +--------+ + + + + | 10/03/ | Hospital | | Herman Masterson MD | NSTEMI (non-ST | | 2017 - | Encounter | | Destinee Trejo, | elevated myocardial | | | | | MD Lind, | infarction) ([facility]); | | 10/10/ | | | MD Ganga | Ischemic | | 2017 | | | | cardiomyopathy; | | | | | | Community acquired | | | | | | pneumonia, | | | | | | unspecified | | | | | | laterality; Acute | | | | | | upper GI bleed; | | | | | | Coronary artery | | | | | | disease involving | | | | | | chinik coronary | | | | | | artery of chinik | | | | | | heart without angina | | | | | | pectoris; Acute | | | | | | respiratory acidosis | +--------+ + + + + +---+ + | | Discharge | | | Summaries | | | - Neil | | | MD Destinee | | | - | | | 10/09/2017 | | | 1520 PST | | | Formatting | | | of this | | | note may be | | | different | | | from the | | | original.DI | | | SCHARGE | | | SUMMARYPt. | | | Name/Age/DO | | | B: Ron | | | J Mike | | | 61 y.o. | | | | | | 1955 | | | | | | Medical | | | Record | | | Number: | | | [id number] | | | Date of | | | Admission: | | | 10/03/2017 | | | Date | | | of | | | Discharge: | | | | | | 10/10/2017Adm | | | itting | | | Physician: | | | Herman | | | Mazyck, MD | | | | | | PCP: | | | Chato M. | | | KuzmaDischa | | | rging | | | Physician: | | | Shristi | | | KunwarConsu | | | ltants: | | | Dr. Alexandria | | | (cardiology | | | ) | | | Primary | | | Discharge | | | Dx: 1. | | | Acute | | | hypoxic | | | respiratory | | | failure | | | thought to | | | be from | | | septic | | | shock / | | | Pneumonia/i | | | nfluenza | | | requiring | | | Mechanical | | | vent. s/p | | | extubation | | | on 10/05 2. | | | Acute on | | | chronic | | | systolic | | | CHF | | | exacerbatio | | | n. | | | Improving. | | | 3. NSTEMI | | | in the | | | setting of | | | known | | | severe | | | ischemic | | | CAD/recent | | | ant wall PR | | | in 03/2017 | | | c/b | | | cardiogenic | | | shock s/p | | | ECMO in | | | [facility]. | | | Paroxysmal | | | atrial | | | flutter | | | Patient | | | Active | | | Problem | | | List | | | Diagnosis | | | | | | Acute | | | anterior | | | wall PR | | | CAD | | | (coronary | | | artery | | | disease) | | | Ischemic | | | cardiomyopa | | | thy | | | Pulmonary | | | edema | | | Pertinent | | | Diagnostic | | | Info/Data: | | | Recent | | | Results | | | (from the | | | past 48 | | | hour(s)) | | | POC Glucose | | | | | | Collection | | | Time: | | | 10/08/17 | | | 16:57 | | | Result | | | Value Ref | | | Range | | | Glucose, | | | POC 96 70 - | | | 109 mg/dL | | | POC Glucose | | | | | | Collection | | | Time: | | | 10/08/17 | | | 21:11 | | | Result | | | Value Ref | | | Range | | | Glucose, | | | POC 120 (H) | | | 70 - 109 | | | mg/dL Basic | | | Metabolic | | | Panel | | | Collection | | | Time: | | | 10/09/17 | | | 5:05 Result | | | Value Ref | | | Range NA | | | 136 136 - | | | 149 mmol/L | | | K 3.5 3.5 | | | - 5.1 | | | mmol/L CL | | | 105 98 - | | | 109 mmol/L | | | CO2 24 24 | | | - 31 mmol/L | | | ANION GAP | | | 7 3 - 16 | | | mmol/L | | | GLUCOSE 107 | | | 70 - 109 | | | mg/dL BUN | | | 26 (H) 7 - | | | 18 mg/dL | | | Creatinine, | | | | | | Serum/Plasm | | | a 1.23 0.60 | | | - 1.30 | | | mg/dL eGFR | | | if not | | | | | | CHINESE 60 | | | >=60 | | | mL/min/1.73 | | | m2 CALCIUM | | | 8.2 (L) | | | 8.3 - 10.5 | | | mg/dL | | | BUN/CREA | | | 21.1 Extra | | | Lavender | | | Top Tube | | | Collection | | | Time: | | | 10/09/17 | | | 5:05 Result | | | Value Ref | | | Range | | | Extra | | | Lavender | | | Top Tube | | | Done POC | | | Glucose | | | Collection | | | Time: | | | 10/09/17 | | | 6:38 Result | | | Value Ref | | | Range | | | Glucose, | | | POC 109 70 | | | - 109 mg/dL | | | POC | | | Glucose | | | Collection | | | Time: | | | 10/09/17 | | | 11:55 | | | Result | | | Value Ref | | | Range | | | Glucose, | | | POC 148 (H) | | | 70 - 109 | | | mg/dL POC | | | Glucose | | | Collection | | | Time: | | | 10/09/17 | | | 16:59 | | | Result | | | Value Ref | | | Range | | | Glucose, | | | POC 97 70 - | | | 109 mg/dL | | | POC Glucose | | | | | | Collection | | | Time: | | | 10/09/17 | | | 20:42 | | | Result | | | Value Ref | | | Range | | | Glucose, | | | POC 125 (H) | | | 70 - 109 | | | mg/dL POC | | | Glucose | | | Collection | | | Time: | | | 10/10/17 | | | 6:36 Result | | | Value Ref | | | Range | | | Glucose, | | | POC 108 70 | | | - 109 mg/dL | | | POC | | | Glucose | | | Collection | | | Time: | | | 10/10/17 | | | 11:42 | | | Result | | | Value Ref | | | Range | | | Glucose, | | | POC 127 (H) | | | 70 - 109 | | | mg/dL | | | Procedures: | | | LHC on | | | 10/03- | | | severe | | | in-stent | | | stenosis of | | | left main | | | to ostial | | | LAD stent, | | | severe | | | instent | | | stenosis | | | ostial | | | proximal | | | left | | | circumflex | | | stent, mild | | | to mod RCA | | | disease. | | | Echo 10/03- | | | EF 40%, | | | thinning | | | and severe | | | hypokinesis | | | distal | | | anterior, | | | anterior | | | septal and | | | apical | | | segments. | | | EGD on | | | 10/05- | | | Inflammatio | | | n just | | | distal to | | | EG | | | junction, | | | NG tube | | | trauma | | | noted along | | | greater | | | curvature, | | | antral | | | gastritis/d | | | uodenitis; | | | 2 linear | | | ulcerations | | | along | | | lesser | | | curvature | | | s/p 2 clips | | | placement; | | | no | | | evidence of | | | active | | | bleeding.Re | | | ason for | | | Admission | | | (Brief): | | | He is a 61 | | | y.o. male | | | with a | | | history of | | | CAD with | | | recent | | | anterior | | | wall PR, | | | post PTCA | | | and stents | | | of the left | | | main, LAD | | | and LCx on | | | 03/15/17 + | | | left atrial | | | appendage | | | thrombus | | | c/b cardiac | | | | | | shock/respi | | | ratory | | | failure | | | requiring | | | Tx to [facility]; | | | was on | | | ECMO, who | | | was a | | | [facility] | | | [facility]/03 for | | | acute | | | respiratory | | | failure | | | requiring | | | intubation | | | after | | | presenting | | | with | | | progressive | | | ly | | | worsening | | | shortness | | | of | | | breath.Hosp | | | ital | | | Course, | | | including | | | Complicatio | | | ns: He | | | was found | | | to have | | | NSTEMI with | | | new LBBB | | | and | | | elevated | | | tropinin | | | and Septic | | | shock | | | thought to | | | be from | | | pneumonia/i | | | nfluenza; | | | started on | | | ceftriaxone | | | , | | | azithromyci | | | n and | | | tamiflu. He | | | underwent | | | LHC on | | | 10/03- | | | severe | | | in-stent | | | stenosis of | | | left main | | | to ostial | | | LAD stent, | | | severe | | | instent | | | stenosis | | | ostial | | | proximal | | | left | | | circumflex | | | stent, mild | | | to mod RCA | | | disease. | | | Echo 10/03- | | | EF 40%, | | | thinning | | | and severe | | | hypokinesis | | | distal | | | anterior, | | | anterior | | | septal and | | | apical | | | segments. | | | There was | | | concern for | | | UGI | | | bleeding | | | given down | | | trend in | | | H/H and | | | positive | | | gastroccult | | | . S/p EGD | | | on 10/05- | | | Inflammatio | | | n just | | | distal to | | | EG | | | junction, | | | NG tube | | | trauma | | | noted along | | | greater | | | curvature, | | | antral | | | gastritis/d | | | uodenitis; | | | 2 linear | | | ulcerations | | | along | | | lesser | | | curvature | | | s/p 2 clips | | | placement; | | | no | | | evidence of | | | active | | | bleeding. | | | He was | | | extubated | | | on 10/05. | | | Post | | | extubation, | | | course was | | | | | | complicated | | | by acute | | | respiratory | | | distress | | | and atrial | | | flutter | | | with RVR. | | | He is now | | | back to | | | sinus | | | rhythm. He | | | was thought | | | to be in | | | volume | | | overload | | | improving | | | with lasix | | | as needed. | | | O2 weaned | | | from 10 | | | liters to 4 | | | liters | | | over 24 | | | hours. | | | Pneumonia | | | is | | | resolving. | | | Jason | | | discussed | | | with | | | Cardiology | [facility] | at [facility] | [facility] but | | | patient | | | refused to [facility] | [facility] re-vascular | | | ization. He | | | preferred | | | to go to | | | [facility]. DrFletcher | | | Jason | | | discussed | | | with DrFletcher | | | [facility]ner at | | | [facility] and he | | | was | | | accepted by | | | him. 1. | | | Acute | | | hypoxic | | | respiratory | | | failure | | | thought to | | | be from | | | septic | | | shock 2/2 | | | Pneumonia/i | | | nfluenza | | | requiring | | | Mechanical | | | vent- | | | Improving. | | | Saturating | | | well on RA | | | - s/p | | | extubation | | | on 10/05 - | | | weaning | | | oxygen to | | | Sp02>=94% , | | | saturating | | | 97% on 4 | | | liters NC- | | | continue | | | ceftriaxone | | | D#8/10. | | | Completed 5 | | | days of | | | azithromyci | | | n and | | | completed | | | tamiflu x 6 | | | days. .- | | | continue | | | BiPAP PRN- | | | continue | | | duonebs- | | | Acappella | | | 2. Acute | | | on chronic | | | systolic | | | CHF | | | exacerbatio | | | n - | | | improving - | | | On lasix | | | PRN- strict | | | I and O, | | | daily | | | weight - | | | BiPAP PRN | | | 3. NSTEMI | | | in the | | | setting of | | | known | | | severe | | | ischemic | | | CAD/recent | | | ant wall PR | | | in 03/2017 | | | c/b | | | cardiogenic | | | shock s/p | | | ECMO in | | | [facility]- | | | troponin | | | peaked to | | | 26 - LHC | | | on 10/03- | | | severe | | | in-stent | | | stenosis of | | | left main | | | to ostial | | | LAD stent, | | | severe | | | instent | | | stenosis | | | ostial | | | proximal | | | left | | | circumflex | | | stent, mild | | | to mod RCA | | | disease. - | | | Echo 10/03- | | | EF 40%, | | | thinning | | | and severe | | | hypokinesis | | | distal | | | anterior, | | | anterior | | | septal and | | | apical | | | segments. - | | | continue | | | aspirin, | | | plavix and | | | statin. C/w | | | coreg. - | | | will resume | | | ACEI if | | | creatinine | | | stable.- | | | Dr. Gomez | | | discussed | | | with | | | Cardiology | | | at [facility] | | center and | | | was | | | [facility] | | | ization but | | | patient | | | refused and | | | wanted to | | | be | | | transferred | | | to [place] | | | Dr. Gomez | | | discussed | | | with | | | cardiology | | | at [facility] and | | | was | | | accepted by | | | them. - | | | 4. | | | Paroxysmal | | | atrial | | | flutter - | | | amiodarone | | | gtt-->amiod | | | arone 400mg | | | PO bid --> | | | 200mg PO | | | daily on | | | 2/2. - | | | continue | | | with | | | aspirin, | | | plavix and | | | coreg- keep | | | K>=4, Mg | | | >=2 Medica | | | tions | | | Reconciled | | | upon | | | Discharge | | | are: | | | Discharge | | | Medications | | | New | | | Medications | | | Details | | | | | | albuterol-i | | | pratropium | | | 2.5-0.5 | | | mg/3 mL | | | Soln Take 3 | | | mLs by | | | nebulizatio | | | n Every 4 | | | hours.aka: | | | DUONEB | | | amiodarone | | | 200 mg | | | tablet Take | | | 1 tablet | | | by mouth | | | Daily.aka: | | | PACERONE | | | carvedilol | | | 3.125 mg | | | tablet Take | | | 1 tablet | | | by mouth 2 | | | times daily | | | (with | | | breakfast & | | | | | | dinner).aka | | | : COREG | | | cefTRIAXone | | | (ROCEPHIN) | | | 2 g in | | | sodium | | | chloride | | | 0.9% 50 mL | | | IVPB Inject | | | 2 g into | | | the vein | | | every 24 | | | hours. | | | Indications | | | : Community | | | Acquired | | | Pneumonia | | | HYDROcodone | | | -acetaminop | | | hen 5-325 | | | mg per | | | tablet Take | | | 1-2 | | | tablets by | | | mouth every | | | 4 hours as | | | needed for | | | Pain | | | (Pain).aka: | | | NORCO | | | insulin | | | lispro 100 | | | units/mL | | | injection | | | (pen) | | | Inject 0-6 | | | Units under | | | the skin 4 | | | times | | | daily (with | | | meals and | | | nightly).ak | | | a: humaLOG | | | KWIKPEN | | | nitroglycer | | | in 0.4 mg | | | SL tablet | | | Place 1 | | | tablet | | | under the | | | tongue | | | every 5 | | | minutes as | | | needed for | | | Chest | | | pain.aka: | | | NITROSTAT | | | nystatin | | | powder | | | Genital | | | regionaka: | | | MYCOSTATIN | | | | | | pantoprazol | | | e 40 mg | | | tablet Take | | | 1 tablet | | | by mouth 2 | | | times daily | | | (before | | | meals).aka: | | | PROTONIX | | | Unchanged | | | Medications | | | Details | | | aspirin 81 | | | MG tablet | | | Take 81 mg | | | by mouth | | | Daily. | | | atorvaSTATi | | | n 40 mg | | | tablet Take | | | 40 mg by | | | mouth | | | nightly.aka | | | : LIPITOR | | | clopidogrel | | | 75 mg | | | tablet Take | | | 1 tablet | | | by mouth | | | Daily.aka: | | | PLAVIX | | | Discontinue | | | d | | | Medications | | | | | | gabapentin | | | 300 mg | | | capsuleaka: | | | NEURONTIN | | | lisinopril | | | 5 mg | | | tabletaka: | | | PRINIVIL, | | | ZESTRIL | | | metFORMIN | | | 500 mg | | | tabletaka: | | | GLUCOPHAGE | | | raNITIdine | | | 300 MG | | | tabletaka: | | | ZANTAC | | | traMADol 50 | | | mg | | | tabletaka: | | | ULTRAM | | | Reason for | | | major | | | medication | | | changes in | | | hospital: | | | Condition | | | on | | | Discharge: | | | StableVital | | | | | | Signs:Temp: | | | 36 C | | | (96.8 F) | | | BP: 116/71 | | | Pulse: 94 | | | Resp: 18 | | | SpO2: 95 % | | | Min/Max | | | Temp past | | | 24 | | | hours:Temp | | | Av.2 | | | C (97.2 | | | F) Min: | | | 35.9 C | | | (96.6 F) | | | Max: 36.8 | | | C (98.2 | | | F)Intake/ | | | Output | | | Summary | | | (Last 24 | | | hours) at | | | 10/10/17 | | | [id number] | | | data filed | | | at 10/10/17 | | | 1400 Gross | | | per 24 | | | hour Intake | | | | | | 240 ml | | | Output | | | | | | 1275 ml Net | | | | | | -1035 ml | | | Last Wt. | | | Before | | | discharge: | | | Weight: | | | 90.3 kg | | | (199 lb 1.2 | | | oz) | | | Pending | | | study | | | results on | | | DC: | | | NoneDisposi | | | tion: | | | Transfer to | | | [facility] | | | cardiology | | | service Dr. | | | [facility] | | | accepting | | | physician | | | Discharge | | | Procedure | | | OrdersTrans | | | susie patient | | | to other | | | facility | | | Order | | | Comments: | [facility] when | | | bed is | | | available. | | | Code | | | Status/Adva | | | nce | | | Directive | | | (Pertinent | | | discussions | | | /declaratio | | | ns): Full | | | CodeTime | | | spent on | | | Discharge | | | and | | | Coordinatio | | | n of | | | post-hospit | | | al care: | | | >30 | | | minutesElec | | | tronically | | | signed by: | | | Shristi | | | Kunwar, | | | 10/10/2017 | | | 15:01 [facility] | +---+ + +--------+ +---+ + + | 10/03/ | Procedure | | | | | 2018 | Pass | | | | +--------+ +---+ + + | 10/03/ | Surgery | | Delmer Gomez V, | CV Cor Angio | | 2017 | | | MD | | +--------+ +---+ + + | 09/25/ | Telephone | | Jenny | Blood Pressure Check | | 2017 | | | ADARSH Sy | (Screening) | +--------+ +---+ + + from Last 3 Months Social History + +-------+ +--------+------+ | Tobacco [...] | Body Mass Index | 30.56 | 11/11/2017899 PST | + + + + Plan of Treatment +--------+ + + + + | Date | Type | Specialty | Care Team | Description | +--------+ + + + + | 12/17/ | Office | | Randy Figueroa, | | | 2017 | Visit | | MD [address] | | | | | | [place], | | | | | | [place] [address] | | | | | | [phone] | | | | | | | | +--------+ + + + + | 12/24/ | Office | | Randy Figueroa, | | | 2017 | Visit | | MD [address] | | | | | | [place], | | | | | | [place] [address] | | | | | | [phone] | | | | | | | | +--------+ + + + + | 12/31/ | Office | | Randy Figueroa, | | | 2017 | Visit | | MD [address] | | | | | | [place], | | | | | | [place] [address] | | | | | | [phone] | | | | | | | | +--------+ + + + + | 01/07/ | Office | | Randy Figueroa, | | | 2017 | Visit | | MD [address] | | | | | | [place], | | | | | | [place] [address] | | | | | | [phone] | | | | | | | | +--------+ + + + + | 01/13/ | Clinical | | | | | 2017 | Support | | | | +--------+ + + + + | 01/13/ | Office | | Jenny, | | | 2017 | Visit | | [address] | | | | | [address] [place], | | | | | | [place] [address] | | | | | | [phone] | | | | | | | | +--------+ + + + + | 01/14/ | Office | | Randy Figueroa, | | | 2017 | Visit | | [address] | | | | | | [place], | | | | | | [place] [address] | | | | | | [phone] | | | | | | | | +--------+ + + + + | 01/21/ | Office | | Randy Figueroa, | | | 2017 | Visit | | MD [address] | | | | | | [place], | | | | | | [place] [address] | | | | | | [phone] | | | | | | | | +--------+ + + + + | 01/28/ | Office | | Randy Figueroa, | | | 2017 | Visit | | MD [address] | | | | | | [place], | | | | | | [place] [address] | | | | | | [phone] | | | | | | | | +--------+ + + + + | 02/04/ | Office | | Randy Figueroa, | | | 2017 | Visit | | MD [address] | | | | | | [place], | | | | | | [place] [address] | | | | | | [phone] | | | | | | | | +--------+ + + + + | 02/11/ | Office | | Randy Figueroa, | | | 2017 | Visit | | MD [address] | | | | | | [place], | | | | | | [place] [address] | | | | | | [phone] | | | | | | | | +--------+ + + + + | 02/18/ | Office | | Randy Figueroa, | | | 2017 | Visit | | MD [address] | | | | | | [place], | | | | | | [place] [address] | | | | | | [phone] | | | | | | | | +--------+ + + + + | 02/24/ | Procedure | | Prosper Esteves | | | 2017 | visit | | MD [address] | | | | | | [place] | | | | | | [address] | | | | | | | | +--------+ + + + + | 02/25/ | Office | | Randy Figueroa, | | | 2017 | Visit | | MD [address] | | | | | | [place], | | | | | | [place] [address] | | | | | | [phone] | | | | | | | | +--------+ + + + + | 03/04/ | Office | | Randy Figueroa, | | | 2017 | Visit | | MD [address] | | | | | | [place], | | | | | | [place] [address] | | | | | | [phone] | | | | | | | | +--------+ + + + + | 03/11/ | Office | | Randy Figueroa, | | | 2017 | Visit | | MD [address] | | | | | | [place], | | | | | | [place] [address] | | | | | | [phone] | | | | | | | [...] | + + + + + | COLON CANCER | | | | | SCREENING | 5 | | | | (COLONOSCOPY EVERY | | | | | 10 YEARS 50-75) | | | | + + + + + | Vaccine: Zoster (#1) | | | | | | 5 | | | + + + + + | Vaccine: Influenza | | | | | (Season Ended) | 8 | | | + + [...] / Lot | + +--------+--------+ +--------+--------+--------+ | Teaching Dietitian-D MedtronicImplanted: | Implan | | MEDTRONIC - [...] N/A: | ISAACS | | 12/29/ | [id number] | | Eluting Coronary Stent System | | [place] | DIAGNOSTICS | | 2019 | 0- / | | Implanted: Qty: 1 on | | ry | - DAINA | | | | | 03/15/2017 by Monse Ross, | | | | | | /[id number] | | | | | | | | 60 | + +--------+--------+ +--------+--------+--------+ | Xience Alpine Everolimus | Stent | N/A: | ISAACS | | 11/03/ | [id number] | | Eluting Coronary Stent System | | [place] | DIAGNOSTICS | | 2019 | 0-23 / | | Implanted: Qty: 1 on | | ry | - DAINA | | | | | 03/15/2017 by Monse Ross, | | | | | | /[id number] | | | | | | | | 40 [...] + + from Last 3 Months Results VAS Segmental Pressures Legs (11/24/2017 1555) [...] + | Clayton Cortes Results In - 11/24/20172150 PDT VAS SEGMENTAL PRESSURES LEGS 11/24/2017 2:32 [...] signed: 11/24/2017 9:48 PM | + + ECHO Complete (11/24/2017 9316)Only the most recent of 2 results within the time period is included. 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 Procedure date Date: | | 11/24/2017Start: 12:56 PM Technical Quality: Adequate visualizationStudy Location: | | Echo Lab Indications: Cardiomyopathy, Ischemic 414.8/I25.5. Patient Status: Routine | | Height: 70 inchesWeight: 213 poundsBSA: 2.14 m^2BMI: 30.56 kg/m^2 Rhythm: Normal Sinus | | RhythmHR: 67 bpm Conclusions Summary 1. Mild left atrial dilatation. 2. Mild left | | ventricular dilatation with him mild to moderate eccentric left ventricular | | hypertrophy. There is a segmental wall motion abnormality with severe hypokinesis of | | the entire anterior and anteroseptal region. Overall, left ventricular systolic | | function is moderately decreased. LVEF is 35-40%. 3. Mild mitral valve regurgitation. | | 4. Mild tricuspid valve regurgitation. 5. Borderline pulmonary hypertension with a peak | | systolic pressure of 35-40 mmHg. 6. Pacemaker lead in the right ventricle. 7. Normal | | IVC with normal respiratory collapse. Signature | | | | | | 07:20 AM | | Findings Mitral Valve Mitral valve appears structurally and functionally normal. | | Mild mitral regurgitation. Aortic Valve Aortic valve appears trileaflet. Tricuspid | | Valve Mild tricuspid regurgitation suggestive of a mildly elevated right systolic | | pressure of 35-40 mmHg. Pulmonic Valve Structurally normal pulmonic valve without | | significant stenosis or regurgitation. Left Atrium The left atrium is mildly dilated. | | Left Ventricle Mildly dilated left ventricle. Moderate concentric left ventricular | | hypertrophy. Ejection fraction is visually estimated at 35-40%. Right Atrium Normal | | right atrial size. Right Ventricle Normal right ventricular size. Right ventricle | | global systolic function is normal. TAPSE = 1.9 cm. Pericardial Effusion No evidence | | of pericardial effusion. Pleural Effusion No evidence of pleural effusion. | | Miscellaneous The aortic root, ascending aorta and aortic arch are normal in size and | | appearance. The inferior vena cava is normal in size with the normal respiratory | | response. Valves Mitral Valve Peak E-Wave: 1.04 m/s Tissue Doppler | | Septal e' Velocity: 0.10 m/s Aortic Valve Peak Velocity: 1.13 m/s Peak | | Gradient: 5.11 mmHg Tricuspid Valve TR Velocity: 2.8 m/s LVOT Peak | | Velocity: 1.15 m/s LVOT Diameter: 2.24 cm Structures Left Atrium LA A/P | | Dimension: 4.6 cm LA Volume: 93 | | ml LA Vol/BSA Index: 43 mL/m^2 EF | | Grkvifcuo25% Left Ventricle Diastolic Dimension: 4.9 cm Septum Diastolic: | | 1.6 cm PW Diastolic: 1.4 cm Miscellaneous Aorta Aortic Root: 3.7 cm | | Ascending Aorta: 3.6 cm | + + + + | Procedure Note | + + | Sebastian, Rad Results In - 11/25/2017 0721 PDT Transthoracic Echocardiography Report (TTE) | | | | Demographics | | | | Patient Name MIKE VELASQUEZ Room Number | | J | | | | Patient Number [id number] Date of Study 11/24/2017 | | | | Visit Number [id number] | | | | Referring Physician THERESE SY | | Number | | | | Date of 1955 Dehorner TUCKER DOVE | | | | Age 62 year(s) Interpreting RANDY FIGUEROA MD | | Material Loader | | | | 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 | | | | Procedure date | | Date: 11/24/2017Start: 12:56 PM | | | | Technical Quality: Adequate visualizationStudy Location: Echo Lab | | Indications: Cardiomyopathy, Ischemic 414.8/I25.5. | | Patient Status: Routine | | Height: 70 inchesWeight: 213 poundsBSA: 2.14 m^2BMI: 30.56 kg/m^2 | | Rhythm: Normal Sinus RhythmHR: 67 bpm | | | | Conclusions | | Summary | | 1. Mild left atrial dilatation. | | 2. Mild left ventricular dilatation with him mild to moderate eccentric left | | ventricular hypertrophy. There is a segmental wall motion abnormality with | | severe hypokinesis of the entire anterior and anteroseptal region. Overall, | | left ventricular systolic function is moderately decreased. LVEF is 35-40%. | | 3. Mild mitral valve regurgitation. | | 4. Mild tricuspid valve regurgitation. | | 5. Borderline pulmonary hypertension with a peak systolic pressure of 35-40 | | mmHg. | | 6. Pacemaker lead in the right ventricle. | | 7. Normal IVC with normal respiratory collapse. | | | | Signature | | | | Electronically signed by RANDY FIGUEROA MD(Interpreting physician) on | | 11/25/2017 07:20 AM | | | | | | Findings | | Mitral Valve | | Mitral valve appears structurally and functionally normal. | | Mild mitral regurgitation. | | Aortic Valve | | Aortic valve appears trileaflet. | | Tricuspid Valve | | Mild tricuspid regurgitation suggestive of a mildly elevated right systolic | | pressure of 35-40 mmHg. | | Pulmonic Valve | | Structurally normal pulmonic valve without significant stenosis or | | regurgitation. | | Left Atrium | | The left atrium is mildly dilated. | | Left Ventricle | | Mildly dilated left ventricle. | | Moderate concentric left ventricular hypertrophy. | | Ejection fraction is visually estimated at 35-40%. | | Right Atrium | | Normal right atrial size. | | Right Ventricle | | Normal right ventricular size. | | Right ventricle global systolic function is normal. | | TAPSE = 1.9 cm. | | Pericardial Effusion | | No evidence of pericardial effusion. | | Pleural Effusion | | No evidence of pleural effusion. | | Miscellaneous | | The aortic root, ascending aorta and aortic arch are normal in size and | | appearance. | | The inferior vena cava is normal in size with the normal respiratory | | response. | | | | Valves | | [...] Diameter: 2.24 cm | | | | Structures | | | | Left Atrium | | | | LA A/P Dimension: 4.6 cm LA Volume: 93 ml | | LA Vol/BSA Index: 43 mL/m^2 EF Omqlsumze03% | | | | Left Ventricle | | | | Diastolic Dimension: 4.9 cm | | Septum Diastolic: 1.6 cm | | PW Diastolic: 1.4 cm | | | | Miscellaneous | | | | Aorta | | | | Aortic Root: 3.7 cm | | Ascending Aorta: 3.6 cm | + + Device Interrogation - Remote (11/12/2017 4436) + + + | Specimen | Performing Laboratory | + + + | | [facility] | + + + + + | Narrative | + + | Randy Figueroa MD 11/16/2017 17:06 Refer to [facility] documentation and | | remote PDF scanned into [employer] for remote interrogation results. Data collected by [...] therefore is not billable. | + + Device Interrogation (11/11/2017 0930) + + + | Specimen | Performing Laboratory | + + + | | [facility] | + + + + + | Narrative | + + | Juan Roach MD 11/11/2017 12:42 PATIENT NAME: Ron Chaudhary | | Mike : 1955: AGE: 62 y.o. ICD Evaluation Report | | November 11, 2017 Reason for evaluation: routine Indication for ICD: | | ICD-10-CM ICD-9-CM 1. Implantable defibrillator reprogramming/check Z45.02 | | V53.32 Device Interrogation CANCELED: Device Interrogation - Remote 2. SERVER SERVICE ASSISTANT-D | | (AICD) Medtronic 10/16/17 [facility] Stecker Z95.810 V45.02 Device Interrogation | | CANCELED: Device Interrogation - Remote 3. Ischemic cardiomyopathy I25.5 414.8 Device | | Interrogation CANCELED: Device Interrogation - Remote Patient was seated | | and reclined and device was interrogated. Defibrillator parameters, battery status, | | percentages pacing and significant arrhythmias were reviewed. Heart rate histograms | | were assessed for adequate heart rate response and any alerts reviewed. Appropriate | | lead impedance testing was performed. Pacing impedances were reviewed for any | | significant changes. Sensing tests were performed by decreasing LRL. Adequacy of | | pacing thresholds were tested by increasing LRL for each lead and recorded for loss of | | capture. Final outputs were assessed for adequate safety margins. Please see the | | scanned [facility] report and device PDF for further details. Data collected by Kelly Samuel | | ALFONSO Rodriguez Underlying rhythm: sinus rhythm 67-71 beats. 0 mode switch episodes | | accounting for 0% of the time. 0 atrial high rate episodes. 1 ventricular high | | rate episodes. The longest occurred 11-11-17 at 8:06 AM for 7 seconds. EGM is | | consistent with a 29 beat run of NSVT with rate 155-210 beats. No tachycardia | | therapies recommended or delivered. PVC singles 0.7/hour PVC | | runs <0.1/hour Histogram good. Battery longevity 9.9 years. Normal and | | stable device function. Quarterly remote monitoring. Device interrogation due in | | office in 2 months. | + + ECG 12 lead (10/19/2017 0529)Only the most recent of 5 results within the time period is in cluded. + + +- + | Component | [...] by NEMO BREWER, | | | | RANDY ([id number]) on 10/19/2017 5:14:23 PM | | | |Confirmed by NEMO BREWER, RANDY ([id number]) on 10/19/2017 5:14:23 PM | | | | | | + + +- + + + + | Specimen | Performing Laboratory | + + + | | [facility] | + + + External Lab: BUN (10/17/2017) + +-------+ + [...] | Blood | | + + + POC Glucose (10/10/2017 1142)Only the most recent of 25 results within the time period is i ncluded. + +---------+ + | Component | Value | Ref Range | + +---------+ + | Glucose, POC | 127 (H) | 70 - 109 mg/dL | + +---------+ + + + + | Specimen | Performing Laboratory | + + + | Blood | [facility] [address] | | | [place] [address] | + + + External Lab: Triglycerides [...] | Blood | | + + + Extra Lavender Top Tube (10/09/2017504)Only the most recent of 2 results within the time period is included. + +-------+ + | Component | Value | Ref Range | + +-------+ + | Extra Lavender Top | Done | | | Tube | | | + +-------+ + + + + | Specimen | Performing Laboratory | + + + | Blood | [facility] [address] | | | [place] [address] | + + + Basic Metabolic Panel (10/09/2017504)Only the most recent of 7 results within the time nisha simpson is included. + + + + | [...] GLOMERULAR FILTRATION | >=60 mL/min/1.73m2 | | CHINESE | RATE,ESTIMATED mL/min/1.18h7Hcqv than | | | | 60 Chronic [...] | + + + | Blood | [facility] [address] | | | [place] [address] | + + + CBC with Differential (10/07/2017350)Only the most recent of 5 results within the time nisha simpson is included. + + + + | [...] | + + + | Blood | [facility] [address] | | | [place] [address] | + + + Magnesium (10/07/2017 0351)Only the most recent of 3 results within the time period is incl uded. + +-------+ + | Component | Value | Ref Range | + +-------+ + | MG | 1.9 | 1.8 - 2.5 mg/dL | + +-------+ + + + + | Specimen | Performing Laboratory | + + + | Blood | [facility] [address] | | | [place] [address] | + + + POC Blood Gases (10/07/2017 0338)Only the most recent of 2 results within [...] Laboratory | + + + | | [facility] [address] | | | [place] [address] | + + + XR Chest AP Portable (10/07/2017 0331)Only the most recent of 6 results within the time per iod is included. + + | Narrative | [...] signed: 10/07/2017 9:11 AM | + + Troponin I (10/06/2017 1752)Only the most recent of 5 results within the time period is inc luded. + + + + | Component | [...] | | | | Yuki Alan. [employer] | | | | Cardiology [...] | + + + | Blood | [facility] [address] | | | [place] [address] | + + + EGD (10/05/2017 1056) + + + | Specimen | Performing Laboratory | + + + | | [facility] | + + + + + | Narrative | + + | Gastroenterology Patient Name: Ron Mckeon Procedure Date: 10/05/2017 10:56 AM | | Date of : 1955 Admit Type: | | Inpatient Age: 61 Room: [facility] 01 Gender: Male Note Status: Finalized Attending MD: | | Terry Weir MD Procedure: Upper GI endoscopy | | Indications: Suspected upper gastrointestinal bleeding | | Providers: Terry Weir MD, Gil Tam RN, Elizabeth Patel | | ALFONSO Rivers, Siddharth Bradley CMA, Venice Campbell | | Babita, Coordinate Measuring Machine Programmer, Yong Napier MD (Anesthesia | | Staff) [...] nurse, the anesthesiologist and the | | battery technician in the procedure room. Mental Status [...] In: 11:00:34 AM Scope Out: 11:11:30 AM Buck Shoemaker | | [facility], [address] [facility], [place] [address] | + + Occult Blood, Gastric (10/05/2017 [...] + + + | Body Fluid | [facility] [address] | | | [place] [address] | + + + Procalcitonin (10/05/2017 0427)Only the most recent of 2 results within [...] | + + + | Blood | [facility] [address] | | | [place] [address] | + + + Extra Green Top Tube (10/04/2017 1556) + +-------+ + | Component | Value | Ref Range | + +-------+ + | Extra Green Top Tube | Done | | + +-------+ + + + + | Specimen | Performing Laboratory | + + + | Blood | [facility] [address] | | | [place] [address] | + + + Blood Gas, Arterial (10/04/2017 1333)Only the most recent of 2 results within the time maggy od is included. + + + + | [...] + + + | Blood | [facility] [address] | | | [place] [address] | + + + + + | Narrative | + + | SIMV 16 TV 550, PS+ 10, PEEP +5, 40%, ETCO2 35 BKE608% | + + CV CARDIAC PROCEDURE (10/03/2017 1518) + + | Narrative | + + | Delmer Dia MD 10/03/2017 16:25 CARDIAC CATHETERIZATION REPORT DATE | | OF PROCEDURE: 10/03/17 PRECATHETERIZATION INFORMED CONSENT : Yes | | TIMEOUT Before start of procedure done: Yes PROGRAM MANAGEMENT ANALYST: Delmer Gomez M.D., | | Nora. PRIMARY PHYSICIAN: Chato Matson MD PROCEDURES PERFORMED: Left | | heart catheterization, selective coronary arteriography INDICATIONS | | : 61-year-old gentleman presenting with acute hypoxic respiratory failure, new left | | bundle branch block, increasing troponin levels, history of coronary artery PCI and | | prior anterior myocardial infarction ARTERIAL ACCESS: Right femoral artery 6 Algerian | | CLOSURE DEVICE:. Sheath left in [...] Seldinger technique and a 6 | | Algerian sheath was inserted. Selective coronary arteriography was performed using 6 | | Algerian Kymberly right 4 and left 4 catheters. [...] instability we will transfer the patient to [facility] for consideration of | | urgent coronary revascularization. Delmer Gomez M.D., F.A.C.C. | | Title Lawyer [place], [place] | | | + + Culture, Blood (10/03/2017 1315)Only the most recent of 2 results within the time period is included. + + + + | Component | Value | Ref Range | + + + + | Culture | No growth after 5 days incubation. | | + + + + + + + | Specimen | Performing Laboratory | + + + | Blood - Peripheral | [facility] [address] | | Blood | [place] [address] | + + + Slide Review, Peripheral Smear (10/03/2017 1129) + +--------+ + | Component | Value | Ref Range | + +--------+ + | RBC MORPHOLOGY | Normal | | + +--------+ + | WBC MORPHOLOGY | Normal | | + +--------+ + | PLT MORPHOLOGY | Normal | | + +--------+ + + + + | Specimen | Performing Laboratory | + + + | Blood | [facility] [address] | | | [place] [address] | + + + + + | Narrative | + + | No platelet clumps seen | + + Protime INR (10/03/20171128) + + [...] | + + + | Blood | [facility] [address] | | | [place] [address] | + + + B Type Natriuretic Peptide (10/03/2017 1129) + +---------+ + | Component | Value | Ref Range | + +---------+ + | BNP | 495 (H) | <100 pg/mL | + +---------+ + + + + | Specimen | Performing Laboratory | + + + | Blood | [facility] [address] | | | [place] [address] | + + + Lactic Acid (10/03/2017 1129) + +-------+ + | Component | Value | Ref Range | + +-------+ + | LACTATE | 1.2 | 0.5 - 2.2 mmol/L | + +-------+ + + + + | Specimen | Performing Laboratory | + + + | Blood | [facility] [address] | | | [place] [address] | + + + Hepatic Function Panel [...] + + + | Blood | [facility] [address] | | | [place] [address] | + + + Campylobacter Ag,Qual (10/03/2017 1039) + + + + | Component | Value | Ref Range | + + + + | Campylobacter AG, | Negative | Negative | | Qual | | | + + + + + + + | Specimen | Performing Laboratory | + + + | Stool | [facility] [address] | | | [place] [address] | + + + Culture, MRSA (10/03/2017 1039) + + + + | Component | Value | Ref Range | + + + + | Culture | Negative for MRSA by chromogenic agar | | | | method | | + + + + + + + | Specimen | Performing Laboratory | + + + | Stool | [facility] [address] | | | [place] [address] | + + + Culture, Stool Result [...] | + + + | Stool | [facility] [address] | | | [place] [address] | + + + Influenza A and [...] + + + | Respiratory - | [facility] [address] | | Nasopharynx | [place] [address] | + + + Shigatoxin 1 and [...] | + + + | Stool | [facility] [address] | | | [place] [address] | + + + Ova and Parasite [...] Stool | [facility]FER[facility] [address] [facility] | | | [place] [address] | + + + + + | Narrative | + + | Performed at: [address] [id number] Lab | | Director: Yesenia Gee MD, Phone: [phone] | + + Fecal leukocytes (10/03/2017 1039) + + + + | Component | Value | Ref Range | + + + + | Lactoferrin, Qual | Negative | Negative | + + + + + + + | Specimen | Performing Laboratory | + + + | Stool | [facility] [address] | | | [place] [address] | + + + Clostridium difficile A and [...] | + + + | Stool | [facility] [address] | | | [place] [address] | + + + Culture, Respiratory, Lower, [...] + + + | Respiratory - | [facility] [address] | | Sputum, expectorated | [place] [address] | + + + Culture, Stool (10/03/2017 1039) + + + | Specimen | Performing Laboratory | + + + | Stool | [facility] [address] | | | [place] [address] | + + + + + | Narrative | + + | The following orders were created for panel order Culture, Stool. | | Procedure | | Abnormality Status | | --------- | | ------ Shigatoxin 1 | | and 2[[id number]] Normal Final | | result Culture, Stool | | Result[[id number]] Final | | result Campylobacter | | Ag,Qual[[id number]] Normal Final | | result Please view results for these tests on the | | individual orders. | + + Urinalysis with Microscopic with Culture [...] | + + + + | Specific [place] | 1.006 | 1.001 - 1.030 | [...] | + + + | Urine | [facility] Javid Crespo | | | [place] [address] | + + + IMAGING REPORT - EXTERNAL SCAN (10/03/2017)Only the most recent of 2 results within the is included. + + | Narrative | + + | Ordered by an unspecified provider. | + + LABS - EXTERNAL SCAN (10/03/2017) + + | Narrative | + + | Ordered by an unspecified provider. | + + ECG - EXTERNAL SCAN (10/03/2017) + + | Narrative | + + | Ordered by an unspecified provider. | + + from Last 3 Months Insurance + +--------+ +--------+ +---------+ | Payer | Benefi | Subscriber | Type | Phone | Address | | | t Plan | ID | | | | | | / | | | | | | | Group | | | | | + +--------+ +--------+ +---------+ | [employer]MIN | VETERA | xxxxxxxxx | Indemn | | | | | NS | | ity | | | | | ADMIN | | | | | | | [place] | | | | | | | [place] | | | | | + +--------+ +--------+ +---------+ | [place] | MEDICA | xxxxxxxx | Medica | [phone] | | | | ID [place] | | id | [id number] | | | | PLUS | | | | | + +--------+ [...] | Self | [birth year] | Home: | [address] | | | al/Fam | | 1956 | [phone] | [address] [place] | | | taiwo | | [phone] | + +--------+ +--------+ + +
--- OUTSIDE RECORDS SUMMARY | ~2017-12-16 | XMS | Encounter Summary ---
Demographics + + + | Address | [address] | | | [place] [address] | + + + | Home Phone [...] Author | [facility] | | | and [place] | + + + | Organization | [facility] | | | and [place] | + + + | Address | Unknown | + + + | Phone | Unavailable | + + + Support + + + + + | Name | Relationship | Address | Phone | + + + + + | [place] Will | ECON | [address] | | | | | #[place] | | | | | [address] | | + + + + + Care Team Providers + +------+ + | Care Maintenance Planning Clerk Name | Role | Phone | [...] + + | 11/24/ | Hospital | [facility] | [place], | Coronary artery | | 2018 | Encounter | MED CTR ULTRASOUND | ADARSH Santo [address] | disease involving | | | | [address] [place] | [place], | wr[place] coronary | | | | [place], [place] | [place] [address] | artery of [place] | | | | [address] | [phone] | heart without angina | | | | [phone] | | pectoris | | | | [...] | | | | | (VITAMIN D-3) [id number] | a week. | | | | [...] | | | | | | [place] [address] | | | | | | [phone] | | | | | | | | +--------+ + + + + | 12/24/ | Office | Cardiac | Randy Figueroa, | | | 2017 | Visit | Rehabilitation | MD [address] | | | | | | [place], | | | | | | [place] [address] | | | | | | [phone] | | | | | | | | +--------+ + + + + | 12/31/ | Office | Cardiac | Randy Figueroa, | | | 2017 | Visit | Rehabilitation | MD [address] | | | | | | [place], | | | | | | [place] [address] | | | | | | [phone] | | | | | | | | +--------+ + + + + | 01/07/ | Office | Cardiac | Randy Figueroa, | | | 2017 | Visit | Rehabilitation | MD [address] | | | | | | [place], | | | | | | [place] [address] | | | | | | [phone] | | | | | | | [...] | | | | | | [place] [address] | | | | | | [phone] | | | | | | | | +--------+ + + + + | 01/14/ | Office | Cardiac | Randy Figueroa, | | | 2017 | Visit | Rehabilitation | MD Javid Crespo | | | | | | [place], | | | | | | [place] [address] | | | | | | [phone] | | | | | | | | +--------+ + + + + | 01/21/ | Office | Cardiac | Randy Figueroa, | | | 2017 | Visit | Rehabilitation | MD Javid [address] | | | | | | [place], | | | | | | [place] [address] | | | | | | [phone] | | | | | | | | +--------+ + + + + | 01/28/ | Office | Cardiac | Randy Figueroa, | | | 2017 | Visit | Rehabilitation | MD Javid [address] | | | | | | [place], | | | | | | [place] [address] | | | | | | [phone] | | | | | | | | +--------+ + + + + | 02/04/ | Office | Cardiac | Randy Figueroa, | | | 2017 | Visit | Rehabilitation | MD [address] | | | | | | [place], | | | | | | [place] [address] | | | | | | [phone] | | | | | | | | +--------+ + + + + | 02/11/ | Office | Cardiac | Randy Figueroa, | | | 2017 | Visit | Rehabilitation | MD Javid Crespo | | | | | | [place], | | | | | | [place] [address] | | | | | | [phone] | | | | | | | | +--------+ + + + + | 02/18/ | Office | Cardiac | Randy Figueroa, | | | 2017 | Visit | Rehabilitation | MD Javid Crespo | | | | | | [place], | | | | | | [place] [address] | | | | | | [phone] | | | | | | | | +--------+ + + + + | 02/24/ | Procedure | Physical Medicine | Prosper Esteves | | | 2017 | visit | and Rehabilitation | MD Art Isabel | | | | | | [place] | | | | | | [address] | | | | | | | | +--------+ + + + + | 02/25/ | Office | Cardiac | Randy Figueroa, | | | 2017 | Visit | Rehabilitation | MD [address] | | | | | | [place], | | | | | | [place] [address] | | | | | | [phone] | | | | | | | | +--------+ + + + + | 03/04/ | Office | Cardiac | Randy Figueroa, | | | 2017 | Visit | Rehabilitation | MD [address] | | | | | | [place], | | | | | | [place] [address] | | | | | | [phone] | | | | | | | | +--------+ + + + + | 03/11/ | Office | Cardiac | Randy Figueroa, | | | 2017 | Visit | Rehabilitation | MD [address] | | | | | | [place], | | | | | | [place] [address] | | | | | | [phone] | | | | | | | [...] + + | Coronary 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 involving wrangell coronary artery of wrangell heart without angina | | pectoris | + +"
--- OUTSIDE RECORDS SUMMARY | ~2017-12-16 | XMS | Encounter Summary ---
Demographics + + + | Address | [address] | | | [place] [address] | + + + | Home Phone [...] | Author | [facility] | | | and [place] | + + + | Organization | [facility] | | | and [place] | + + + | Address | Unknown | + + + | Phone | Unavailable | + + + Support + + + + + | Name | Relationship | Address | Phone | + + + + + | [place] Will | ECON | [address] | | | | | #[place] | | | | | [address] | | + + + + + Care Team Providers + +------+ + | Care Manager Medical Device Name | Role | Phone | + [...] | | CARDIOLOGY [address] | Hansa BARREL CUTTER [address] | | | | | [place], | [place], | | | | | [place] [address] | [place] [address] | | | | | [phone] | [phone] | | | | | | | [...] Visit | Rehabilitation | MD [address] [place] | | | | | | [place], | | | | | | [place] [address] | | | | | | [phone] | | | | | | | | +--------+ + + + + | 12/24/ | Office | Cardiac | Randy Figueroa, | | | 2017 | Visit | Rehabilitation | MD [address] [place] | | | | | | [place], | | | | | | [place] [address] | | | | | | [phone] | | | | | | | | +--------+ + + + + | 12/31/ | Office | Cardiac | Randy Figueroa, | | | 2017 | Visit | Rehabilitation | MD [address] | | | | | | [place], | | | | | | [place] [address] | | | | | | [phone] | | | | | | | | +--------+ + + + + | 01/07/ | Office | Cardiac | Randy Figueroa, | | | 2017 | Visit | Rehabilitation | [address] | | | | | | [place], | | | | | | [place] [address] | | | | | | [phone] | | | | | | | [...] | | | | | | [place] [address] | | | | | | [phone] | | | | | | | | +--------+ + + + + | 01/14/ | Office | Cardiac | Randy Figueroa, | | | 2017 | Visit | Rehabilitation | MD [address] [place] | | | | | | [place], | | | | | | [place] [address] | | | | | | [phone] | | | | | | | | +--------+ + + + + | 01/21/ | Office | Cardiac | Randy Figueroa, | | | 2017 | Visit | Rehabilitation | MD [address] | | | | | | [place], | | | | | | [place] [address] | | | | | | [phone] | | | | | | | | +--------+ + + + + | 01/28/ | Office | Cardiac | Randy Figueroa, | | | 2017 | Visit | Rehabilitation | MD [address] | | | | | | [place], | | | | | | [place] [address] | | | | | | [phone] | | | | | | | | +--------+ + + + + | 02/04/ | Office | Cardiac | Randy Figueroa, | | | 2017 | Visit | Rehabilitation | MD [address] [place] | | | | | | [place], | | | | | | [place] [address] | | | | | | [phone] | | | | | | | | +--------+ + + + + | 02/11/ | Office | Cardiac | Randy Figueroa, | | | 2017 | Visit | Rehabilitation | MD [address] | | | | | | [place], | | | | | | [place] [address] | | | | | | [phone] | | | | | | | | +--------+ + + + + | 02/18/ | Office | Cardiac | Randy Figueroa, | | | 2017 | Visit | Rehabilitation | MD [address] | | | | | | [place], | | | | | | [place] [address] | | | | | | [phone] | | | | | | | | +--------+ + + + + | 02/24/ | Procedure | Physical Medicine | Prosper Esteves | | | 2017 | visit | and Rehabilitation | MD Art Isabel | | | | | | [facility] [place] | | | | | | [address] | | | | | | | | +--------+ + + + + | 02/25/ | Office | Cardiac | Randy Figueroa, | | | 2017 | Visit | Rehabilitation | MD Javid Crespo | | | | | | [place], | | | | | | [place] [address] | | | | | | [phone] | | | | | | | | +--------+ + + + + | 03/04/ | Office | Cardiac | Randy Figueroa, | | | 2017 | Visit | Rehabilitation | MD Javid Crespo | | | | | | [place], | | | | | | [place] [address] | | | | | | [phone] | | | | | | | | +--------+ + + + + | 03/11/ | Office | Cardiac | Randy Figueroa, | | | 2017 | Visit | Rehabilitation | MD Javid Crespo | | | | | | [place], | | | | | | [place] [address] | | | | | | [phone] | | | | | | | | +--------+ + + + + as of this encounter Visit Diagnoses Not on filein this encounter"
--- OUTSIDE RECORDS SUMMARY | ~2017-12-16 | XMS | Encounter Summary ---
Demographics + + + | Address | [address] | | | [place] [address] | + + + | Home Phone | | + + + | Preferred Language | Unknown | + + + | Marital Status | | + + + | Rastafari Affiliation | Unknown | + + + | Race | Unknown | + + + | Ethnic Group | Unknown | + + + Author + + + | Author | [facility] | | | and [place] | + + + | Organization | [facility] | | | and [place] | + + + | Address | Unknown | + + + | Phone | Unavailable | + + + Support + + + + + | Name | Relationship | Address | Phone | + + + + + | [place] Will | ECON | [address] | | | | | #[place] | | | | | [address] | | + + + + + Care Team Providers + +------+ + | Care Operations Scheduler Name | Role | Phone | [...] + + | 11/10/ | Telephone | [facility] [place] | Jenny, | Other | | 2017 | | CARDIOLOGY [address] | ADARSH Santo [address] | | | | | [place], | [place], | | | | | [place] [address] | [place] [address] | | | | | [phone] | [phone] | | | | | | | [...] | | | | | | [place] [address] | | | | | | [phone] | | | | | | | | +--------+ + + + + | 12/24/ | Office | Cardiac | Randy Figueroa, | | | 2017 | Visit | Rehabilitation | MD [address] [place] | | | | | | [place], | | | | | | [place] [address] | | | | | | [phone] | | | | | | | | +--------+ + + + + | 12/31/ | Office | Cardiac | Randy Figueroa, | | | 2017 | Visit | Rehabilitation | MD [address] [place] | | | | | | [place], | | | | | | [place] [address] | | | | | | [phone] | | | | | | | | +--------+ + + + + | 01/07/ | Office | Cardiac | Randy Figueroa, | | | 2017 | Visit | Rehabilitation | MD Javid Crespo | | | | | | [place], | | | | | | [place] [address] | | | | | | [phone] | | | | | | | [...] | | | | | | [place] [address] | | | | | | [phone] | | | | | | | | +--------+ + + + + | 01/14/ | Office | Cardiac | Randy Figueroa, | | | 2017 | Visit | Rehabilitation | MD Javid Crespo | | | | | | [place], | | | | | | [place] [address] | | | | | | [phone] | | | | | | | | +--------+ + + + + | 01/21/ | Office | Cardiac | Randy Figueroa, | | | 2017 | Visit | Rehabilitation | MD Javid [address] | | | | | | [place], | | | | | | [place] [address] | | | | | | [phone] | | | | | | | | +--------+ + + + + | 01/28/ | Office | Cardiac | Randy Figueroa, | | | 2017 | Visit | Rehabilitation | MD [address] | | | | | | [place], | | | | | | [place] [address] | | | | | | [phone] | | | | | | | | +--------+ + + + + | 02/04/ | Office | Cardiac | Randy Figueroa, | | | 2017 | Visit | Rehabilitation | MD Javid Crespo | | | | | | [place], | | | | | | [place] [address] | | | | | | [phone] | | | | | | | | +--------+ + + + + | 02/11/ | Office | Cardiac | Randy Figueroa, | | | 2017 | Visit | Rehabilitation | MD Javid Crespo | | | | | | [place], | | | | | | [place] [address] | | | | | | [phone] | | | | | | | | +--------+ + + + + | 02/18/ | Office | Cardiac | Randy Figueroa, | | 2017 | Visit | Rehabilitation | MD Javid Crespo | | | | | | [place], | | | | | | [place] [address] | | | | | | [phone] | | | | | | | | +--------+ + + + + | 02/24/ | Procedure | Physical Medicine | Prosper Esteves | | | 2017 | visit | and Rehabilitation | T, MD Art Oleary POPLJESSICA | | | | | | [place], [place] | | | | | | [address] | | | | | | | | +--------+ + + + + | 02/25/ | Office | Cardiac | Randy Figueroa, | | | 2017 | Visit | Rehabilitation | MD Javid Crespo | | | | | | [place], | | | | | | [place] [address] | | | | | | [phone] | | | | | | | | +--------+ + + + + | 03/04/ | Office | Cardiac | Randy Figueroa, | | | 2017 | Visit | Rehabilitation | MD Javid Crespo | | | | | | [place], | | | | | | [place] [address] | | | | | | [phone] | | | | | | | | +--------+ + + + + | 03/11/ | Office | Cardiac | Randy Figueroa, | | | 2017 | Visit | Rehabilitation | [address] | | | | | | [place], | | | | | | [place] [address] | | | | | | [phone] | | | | | | | | +--------+ + + + + as of this encounter Visit Diagnoses Not on filein this encounter"
--- OUTSIDE RECORDS SUMMARY | ~2017-12-16 | XMS | Encounter Summary ---
Demographics + + + | Address | [address] | | | [place] [address] | + + + | Home Phone [...] | Author | [facility] | | | and [place] | + + + | Organization | [facility] | | | and [place] | + + + | Address | Unknown | + + + | Phone | Unavailable | + + + Support + + + + + | Name | Relationship | Address | Phone | + + + + + | [place] Will | ECON | [address] | | | | | #[place] | | | | | [address] | | + + + + + Care Team Providers + +------+ + | Care Tile Erector Name | Role | Phone | + +------+ + | Chato Matson MD | PCP | | + +------+ + Encounter Details +--------+---------+ + + + | Date | Type | Department | Care Team | Description | +--------+---------+ + + + | 12/03/ | Office | [facility] | Randy Figueroa, | Coronary artery | | 2018 | Visit | MED CTR CARDIAC | [address] | disease involving | | | | REH[address]ILITATION [address] [place], | [place] coronary | | | | [address] [place] | [place] [address] | artery of [place] | | | | [place] [address] | [phone] | heart without angina | | | | [phone] | | pectoris (Primary | | | [...] note may be different from the origin [facility] CARDIAC REHABILITATION [address] [facility] [address] Cardiac Rehab Date: 12/03/2017 Patient Information Patient Name: Bob Will Date of : 1955 Age: 62 y.o. Encounter Diagnoses Code Name Primary? I25.10 Coronary 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 involving [place] coronary artery of [place] heart without angina pectoris Yes I25.5 Ischemic [...] | | | | | | [place] [address] | | | | | | [phone] | | | | | | | | +--------+ + + + + | 12/24/ | Office | Cardiac | Randy Figueroa, | | | 2017 | Visit | Rehabilitation | MD Javid Crespo | | | | | | [place], | | | | | | [place] [address] | | | | | | [phone] | | | | | | | | +--------+ + + + + | 12/31/ | Office | Cardiac | Randy Figueroa, | | | 2017 | Visit | Rehabilitation | MD Javid Crespo | | | | | | [place], | | | | | | [place] [address] | | | | | | [phone] | | | | | | | | +--------+ + + + + | 01/07/ | Office | Cardiac | Randy Figueroa, | | | 2017 | Visit | Rehabilitation | MD Javid Crespo | | | | | | [place], | | | | | | [place] [address] | | | | | | [phone] | | | | | | | | +--------+ + + + + | 01/13/ | Clinical | Cardiology | | | | 2017 | Support | | | | +--------+ + + + + | 01/13/ | Office | Cardiology | Jenny, | | | 2017 | Visit | | ADARSH Santo [address] | | | | | | [place], | | | | | | [place] [address] | | | | | | [phone] | | | | | | | | +--------+ + + + + | 01/14/ | Office | Cardiac | Randy Figueroa, | | | 2017 | Visit | Rehabilitation | MD Javid Crespo | | | | | | [place], | | | | | | [place] [address] | | | | | | [phone] | | | | | | | | +--------+ + + + + | 01/21/ | Office | Cardiac | Randy Figueroa, | | | 2017 | Visit | Rehabilitation | MD Javid Crespo | | | | | | [place], | | | | | | [place] [address] | | | | | | [phone] | | | | | | | | +--------+ + + + + | 01/28/ | Office | Cardiac | Randy Figueroa, | | | 2017 | Visit | Rehabilitation | MD [address] | | | | | | [place], | | | | | | [place] [address] | | | | | | [phone] | | | | | | | | +--------+ + + + + | 02/04/ | Office | Cardiac | Randy Figueroa, | | | 2017 | Visit | Rehabilitation | MD [address] | | | | | | [place], | | | | | | [place] [address] | | | | | | [phone] | | | | | | | | +--------+ + + + + | 02/11/ | Office | Cardiac | Randy Figueroa, | | | 2017 | Visit | Rehabilitation | MD [address] | | | | | | [place], | | | | | | [place] [address] | | | | | | [phone] | | | | | | | | +--------+ + + + + | 02/18/ | Office | Cardiac | Randy Figueroa, | | | 2017 | Visit | Rehabilitation | MD Javid Crespo | | | | | | [place], | | | | | | [place] [address] | | | | | | [phone] | | | | | | | | +--------+ + + + + | 02/24/ | Procedure | Physical Medicine | Prosper Esteves | | | 2017 | visit | and Rehabilitation | T, MD Art CRESPO | | | | | | [place] | | | | | | [address] | | | | | | | | +--------+ + + + + | 02/25/ | Office | Cardiac | Randy Figueroa, | | | 2017 | Visit | Rehabilitation | MD Javid Crespo | | | | | | [place], | | | | | | [place] [address] | | | | | | [phone] | | | | | | | | +--------+ + + + + | 03/04/ | Office | Cardiac | Randy Figueroa, | | | 2017 | Visit | Rehabilitation | MD Javid Rodriguez[address] | | | | | | [place], | | | | | | [place] [address] | | | | | | [phone] | | | | | | | | +--------+ + + + + | 03/11/ | Office | Cardiac | Randy Figueroa, | | | 2018 | Visit | Rehabilitation | MD [address] | | | | | | [place], | | | | | | [place] [address] | | | | | | [phone] | | | | | | | | +--------+ + + + + as of this encounter Visit Diagnoses + + | Diagnosis | + + | Coronary 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 involving [place] coronary artery of [place] heart without angina | | pectoris - Primary | + + | Ischemic cardiomyopathy | + + | Other specified forms of chronic ischemic heart disease | + +"
--- OUTSIDE RECORDS SUMMARY | ~2017-12-16 | XMS | Encounter Summary ---
Demographics + + + | Address | [address] | | | [place] [address] | + + + | Home Phone [...] + | Author | [facility] | | | and [place] | + + + | Organization | [facility] | | | and [place] | + + + | Address | Unknown | + + + | Phone | Unavailable | + + + Support + + + + + | Name | Relationship | Address | Phone | + + + + + | [place] Will | ECON | [address] | | | | | #[place] | | | | | [address] | | + + + + + Care Team Providers + +------+ + | Care Digital Solution Architect Name | Role | Phone | [...] W | defibrillator | | | | [place], | [address] [place] | reprogramming/check | | | | [place] [address] | [place] [address] | (Primary Dx); TELEVISION ANNOUNCER-D | | | | [phone] | [phone] | (AICD) [employer] | | | | | | 10/16/17 [address]; | | | | | | [...] | | | | | | [place] [address] | | | | | | [phone] | | | | | | | | +--------+ + + + + | 12/24/ | Office | Cardiac | Randy Figueroa, | | | 2017 | Visit | Rehabilitation | MD Javid Crespo | | | | | | [place], | | | | | | [place] [address] | | | | | | [phone] | | | | | | | | +--------+ + + + + | 12/31/ | Office | Cardiac | Randy Figueroa, | | | 2017 | Visit | Rehabilitation | MD Javid Crespo | | | | | | [place], | | | | | | [place] [address] | | | | | | [phone] | | | | | | | | +--------+ + + + + | 01/07/ | Office | Cardiac | Randy Figueroa, | | | 2017 | Visit | Rehabilitation | MD Javid Crespo | | | | | | [place], | | | | | | [place] [address] | | | | | | [phone] | | | | | | | [...] | | | | | | [place] [address] | | | | | | [phone] | | | | | | | | +--------+ + + + + | 01/14/ | Office | Cardiac | Randy Figueroa, | | | 2017 | Visit | Rehabilitation | MD [address] | | | | | | [place], | | | | | | [place] [address] | | | | | | [phone] | | | | | | | | +--------+ + + + + | 01/21/ | Office | Cardiac | Randy Figueroa, | | | 2017 | Visit | Rehabilitation | MD [address] [place] | | | | | | [place], | | | | | | [place] [address] | | | | | | [phone] | | | | | | | | +--------+ + + + + | 01/28/ | Office | Cardiac | Randy Figueroa, | | | 2017 | Visit | Rehabilitation | MD [address] | | | | | | [place], | | | | | | [place] [address] | | | | | | [phone] | | | | | | | | +--------+ + + + + | 02/04/ | Office | Cardiac | Randy Figueroa, | | | 2017 | Visit | Rehabilitation | MD [address] [place] | | | | | | [place], | | | | | | [place] [address] | | | | | | [phone] | | | | | | | | +--------+ + + + + | 02/11/ | Office | Cardiac | Randy Figueroa, | | | 2017 | Visit | Rehabilitation | MD [address] | | | | | | [place], | | | | | | [place] [address] | | | | | | [phone] | | | | | | | | +--------+ + + + + | 02/18/ | Office | Cardiac | Randy Figueroa, | | | 2017 | Visit | Rehabilitation | MD [address] | | | | | | [place], | | | | | | [place] [address] | | | | | | [phone] | | | | | | | | +--------+ + + + + | 02/24/ | Procedure | Physical Medicine | Prosper Esteves | | | 2017 | visit | and Rehabilitation | MD Art Isabel | | | | | | [place] | | | | | | [address] | | | | | | | | +--------+ + + + + | 02/25/ | Office | Cardiac | Randy Figueroa, | | | 2017 | Visit | Rehabilitation | MD Javid [address]resp[address] | | | | | | [place], | | | | | | [place] [address] | | | | | | [phone] | | | | | | | | +--------+ + + + + | 03/04/ | Office | Cardiac | Randy Figueroa, | | | 2017 | Visit | Rehabilitation | MD [address]avid Cresp[address] | | | | | | [place], | | | | | | [place] [address] | | | | | | [phone] | | | | | | | | +--------+ + + + + | 03/11/ | Office | Cardiac | Randy Figueroa, | | | 2017 | Visit | Rehabilitation | [address] | | | | | | [place], | | | | | | [place] [address] | | | | | | [phone] | | | | | | | | +--------+ + + + + as of this encounter Results Device Interrogation (11/11/2017 0930) + + + | Specimen | Performing Laboratory | + + + | | [facility] | + + + + + | Narrative | + + | Juan Roach MD 11/11/2017 12:42 PATIENT NAME: Bob Chaudhary | | Suman : 1955: AGE: 62 y.o. ICD Evaluation Report | | November 11, 2017 Reason for evaluation: routine Indication for ICD: | | ICD-10-CM ICD-9-CM 1. Implantable defibrillator reprogramming/check Z45.02 | | V53.32 Device Interrogation CANCELED: Device Interrogation - Remote 2. TELEVISION ANNOUNCER-D | | (AICD) [employer] 10/16/17 [facility] Stecker Z95.810 V45.02 Device Interrogation | [...] office in 2 months. | + + in this encounter Visit Diagnoses + + | Diagnosis | + + | Implantable defibrillator reprogramming/check - Primary | + + | Fitting and adjustment of automatic implantable cardiac defibrillator | + + | TELEVISION ANNOUNCER-D (AICD) [employer] 10/16/17 [facility] | + + | Ischemic cardiomyopathy | + + | Other specified forms of chronic ischemic heart disease | + +"
--- OUTSIDE RECORDS SUMMARY | ~2017-12-16 | XMS | Encounter Summary ---
Demographics + + + | Address | [address] | | | [place] [address] | + + + | Home Phone [...] | | | | | [place] [address] | | + + + + + Care Team Providers + +------+ + | Care Cotton Header Name | Role | Phone | + [...] + | 10/16/ | Anesthesia | Cardiac Upper Tier | Terry Garvin, | | | 2018 | | at [facility] [address] [facility] | [facility] [address] [facility] | | | | | 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
--- OUTSIDE RECORDS SUMMARY | ~2017-12-16 | XMS | Encounter Summary ---
Demographics + + + | Address | [address] | | | [place] [address] | + + + | Home Phone [...] Author | [facility] | | | and [place] | + + + | Organization | [facility] | | | and [place] | + + + | Address | Unknown | + + + | Phone | Unavailable | + + + Support + + + + + | Name | Relationship | Address | Phone | + + + + + | Venice Hood | ECON | [address] | | | | | [address] | | | | | [address] | | + + + + + Care Team Providers + +------+ + | Care Simulation Educator Name | Role | Phone | [...] | Surgery | [facility] | Delmer Mobley V, | CV Cor Angio | | 2018 | | MED [facility] CV INTRA OP | MD | | | | | [address] | | | | | | [place] | | | | | | [address] | | | | | | [phone] | | | +--------+---------+ + + + [...] | Body Mass Index | 28.56 | 10/09/2017499 PST | + + + + in [...] of known severe ischemic CAD/recent ant wall [place] in 03/2017 c/b card iogenic shock s/p ECMO in [facility] 4. Paroxysmal atrial flutter Patient Active Problem List Diagnosis Acute anterior wall [place] CAD (coronary 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) Ischemic cardiomyopathy Pulmonary [...] history of CAD with recent anterior wall [place], post PTCA and st ents of the left main, LAD and LCx on 03/15/17 + left atrial appendage thrombus c/b cardiac sh ock/respiratory failure requiring Tx to [facility]; was on ECMO, who was a transfer this time from [facility] on 10/03 for acute respiratory failure requiring intubation after prese nting with progressively worsening shortness of breath. Hospital Course, including Complications: He was found to have NSTEMI with new LBBB and elevated tropinin and Septic shock thought t o be from pneumonia/influenza; started on ceftriaxone, azithromycin and tamiflu. He underwen t [facility] on 10/03- severe in-stent stenosis of [...] is resolving. Dr. Mobley discussed with Sonido luogkayla at [facility] but patient refused to go to [place] for re-vascu larization. He preferred to go to [facility]. Dr. Mobley discussed with Dr. Bedoya at [facility] and he was accepted by him. [...] of known severe ischemic CAD/recent ant wall [place] in 03/2017 c/b sonido iogenic shock s/p ECMO in [facility] - troponin peaked to 26 - [facility] on 10/03- severe in-stent stenosis of [...] [facility] and was accepted at [facility] for re-vascularization but patient refused and wanted to be transferred to [facility]. Dr. Mobley discussed with cardiology at [facility] and was accepted by them. - [...] results on DC: None Disposition: Transfer to [facility] cardiology service Dr. Bedoya accepting physician Discharge Procedure Orders Transfer patient to other facility Order Comments: [facility] when bed is available. Code Status/Advance Directive (Pertinent discussions/declarations): Full Code Time spent on Discharge and Coordination of post-hospital care: >30 minutes Electronically signed by: Destinee Trejo, 10/10/2017 15:01 [facility] in this encounter Medications at Time of [...] Rhea Oneal RN - 10/10/2017 1555 PSTCalled EULOGIO, RN informed that Lotus Sarmiento to call back this RN, phone number given. Electronically signed by: Rhea Ventura RN 10/10/2017 15:58 Rhea Oneal RN - 10/10/2017 1359 PSTPatient called RN to bedside, patient to g o to [facility], wants to get better and do the procedure. RN to inform Electronically signed b y: Rhea Ventura RN 10/10/2017 14:00 Rhea Oneal RN - 10/10/2017 [address] [place] at bedside to explain to the patient about leaving against medical advice, wallace ent verbalizing that we have done many interventions and that it is not a safe choice. RN at bedside, patient understands consequences and that he is leaving against medical advice. El ectronically signed by: Rhea Ventura RN 10/10/2017 13:08 Delmer Mobley MD - 10/09/2017 2625 PSTFormatting of this note may be different [...] The patient will be transferred today to [facility] for coronary revascularization. MEDICATIONS: Current [...] mg 40 mg Oral BID AC Carlos Graham, PharmD 40 m g at 10/09/17 [...] may be different from the original. [facility] Hospitalist Progress Note Bob Hood is a 61 y.o. male INTERVAL HPI: He is a 61 y.o. male with a history of CAD with recent anterior wall [place], post PTCA and sten ts of the left main, LAD and LCx on 03/15/17 + left atrial appendage thrombus c/b cardiac shoc k/respiratory failure requiring Tx to [facility]; was on ECMO, who was a transfer this time from [facility] on 10/03 for acute respiratory failure requiring [...] of known severe ischemic CAD/recent ant wall [place] in 03/2017 c/b card iogenic shock s/p ECMO in [facility] - troponin peaked to 26 - [...] as outlined above. Destinee Trejo 10/09/2017 8:16 [facility] Destinee Trejo MD - 10/08/2017 1220 PSTFormatting of this note may be different from the original. [facility]G Hospitalist Progress Note Bob Hood is a 61 y.o. male INTERVAL HPI: He is a 61 y.o. male with a history of CAD with recent anterior wall [place], post PTCA and sten ts of the left main, LAD and LCx on 03/15/17 + left atrial appendage thrombus c/b cardiac shoc k/respiratory failure requiring Tx to [facility]; was on ECMO, who was a transfer this time from [facility] on 10/03 for acute respiratory failure requiring [...] % on high-flow nasal ca nnula, heated, flour blender system at flow rate 14L/min Temp [...] of known severe ischemic CAD/recent ant wall [place] in 03/2017 c/b card iogenic shock s/p ECMO in [facility] - troponin peaked to 26 - [facility] on 10/03- severe in-stent stenosis of [...] as outlined above. Destinee Trejo 10/08/2017 12:20 [facility] Destinee Trejo MD - 10/07/2017 1438 PSTFormatting of this note may be different from the original. [facility]G Hospitalist Progress Note Bob Hood is a 61 y.o. male INTERVAL HPI: He is a 61 y.o. male with a history of CAD with recent anterior wall [place], post PTCA and sten ts of the left main, LAD and LCx on 03/15/17 + left atrial appendage thrombus c/b cardiac shoc k/respiratory failure requiring Tx to [facility]; was on ECMO, who was a transfer this time from [facility] on 10/03 for acute respiratory failure requiring [...] of known severe ischemic CAD/recent ant wall [place] in 03/2017 c/b card iogenic shock s/p ECMO in [facility] - troponin peaked to 26 - [facility] on 10/03- severe in-stent stenosis of [...] as outlined above. Destinee Trejo 10/07/2017 14:38 [facility] Delmer Mobley MD - 10/07/2017 1207 [...] may be different from nissa suh original. IV TO PO PER PHARMACY PROTOCOL [...] orally BID Carlos Graham PharmD 10/07/2017 9:59 [facility] IV TO PO Collaborative Practice [...] 75 mg 75 mg Oral BID Anthony ColungaSheylaD 75 mg at 10/06/17 0831 pantoprazole (PROTONIX) [...] may be different from the original. [facility]G Hospitalist Progress Note Bob Hood is a 61 y.o. male INTERVAL HPI: He is a 61 y.o. male with a history of CAD with recent anterior wall [place], post PTCA and sten ts of the left main, LAD and LCx on 03/15/17 + left atrial appendage thrombus c/b cardiac shoc k/respiratory failure requiring Tx to [facility]; was on ECMO, who was a transfer this time from [facility] on 10/03 for acute respiratory failure requiring [...] 95 % on high-flow nasal can nula, flour blender system, heated at flow rate 14L/min [...] now present Confirmed by ZOHRA BREWER, FLORY ([id number]) on 10/06/2017 7:17:27 AM POC Glucose Result [...] of known severe ischemic CAD/recent ant wall [place] in 03/2017 c/b card iogenic shock s/p ECMO in [facility] - troponin peaked to 26 - [facility] on 10/03- severe in-stent stenosis of [...] as outlined above. Destinee Trejo 10/06/2017 12:45 [facility] Clinton Burnett MD - 10/05/2017 7107 PSTHospitalist follow-up At approximately 4 PM, there'll [...] Herman Masterson MD 6 50 mg at 10/05/174 albuterol-ipratropium (DUONEB) 2.5-0.5 mg/3 mL nebulizer solution [...] capsule 75 mg 75 mg Oral BID Giovannybeth MishaMatias chester 75 mg at 10/06/17 0831 pantoprazole (PROTONIX) [...] acute hypoxic respiratory failure. COMPARISON: 03/15/2017. FIN PRITIS: Portable frontal chest radiograph. Endotracheal tube approximately [...] participating in the care of this patient. eDlmer Mobley MD, 10/05/17 Demetra Kirk RN - 10/05/2017 1553 PSTPt had large BM, became SOB, tachycardic, placed o n BiPap, Nitro gtt started for HTN.Adenosine given x2 Started on Amiodarone. Tommie off, Amio bolus complete. Awaiting cont gtt from pharmacy. Clintno Burnett MD - 10/05/2017 1449 PSTHo spitalist [...] anti platelet therapyClinton Burnett MD - 10/05/2017 0947 PSTFormatting of this note may be different from the original. [facility]G Hospitalist Progress Note Bob [...] as outlined above. Clinton Burnett 10/05/2017 9:39 [facility] Portions of this chart may have been created with [employer] voice recognition software. Occasi onal wrong-word or sound-alike substitutions may have occurred due to the inherent canseco itations of voice recognition software. Please read the chart carefully and recognize, using context, where these substitutions have occurred Clinton Burnett MD - 10/04/2017 1241 PSTFormatting of this note may be different from the o riginal. [facility] Hospitalist Progress Note Bob [...] as outlined above. Clinton Burnett 10/04/2017 12:42 [facility] Portions of this chart may have been created with [employer] voice recognition software. Occasi onal wrong-word or [...] 16 mcg/mL infusion 1-30 mcg/min Intravenous Titrated Anette Lind MD Stopped at 10/03/172124 oseltamivir (TAMIFLU) 6 mg/mL suspension 30 mg 30 mg Per OG Tube BID Gnaga Lind MD 30 mg at 10/04/17 08 pantoprazole (PROTONIX) injection 40 mg 40 mg [...] :consider ischemia/infarction Confirmed by ZOHRA BREWER, FLORY ([id number]) on 10/04/2017 10:35:54 AM Influenza A PCR [...] 10/03/2017 5.0 5.0 - 8.0 Final Specific [place] 10/03/2017 1.006 1.001 - 1.030 Final PROTEIN [...] due to: Intubated X Pharmacy list names: [facility] and [facility] X [employer] insurance reported information X Outside [...] as needed for suspected pain medication overdose Apmrgjl-dbsmzoctwvage-vcxwmvnt 250-250-65 mg tab 1 tab by mouth [...] Prior to Admission Sig: 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: 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 5 mg tab 15 mg by mouth daily 5 mg by mouth every morning and 10 mg every eveni ng Medication review performed and electronically signed by Melody Falcon, Ship Pilot Dispatcher 20:26 Reviewed by Kelly Pitts, PharmD 10/03/2017 21:22 Delmer Mobley MD - 10/03/2017 7780 PSTCARDIOLOGY FOLLOW-UP PROGRESS NOTE The patient was [...] PROTOCOL Electronically signed by: Clarita Ford Chi, PharmKatie 10/03/2017 11:42 in this encounter Plan of [...] | | | | | | [place] [address] | | | | | | [phone] | | | | | | | | +--------+ + + + + | 12/24/ | Office | Cardiac | Randy Figueroa, | | | 2017 | Visit | Rehabilitation | MD [address] | | | | | | [place], | | | | | | [place] [address] | | | | | | [phone] | | | | | | | | +--------+ + + + + | 12/31/ | Office | Cardiac | Randy Figueroa, | | | 2017 | Visit | Rehabilitation | MD [address] | | | | | | [place], | | | | | | [place] [address] | | | | | | [phone] | | | | | | | | +--------+ + + + + | 01/07/ | Office | Cardiac | Randy Figueroa, | | | 2017 | Visit | Rehabilitation | MD [address] | | | | | | [place], | | | | | | [place] [address] | | | | | | [phone] | | | | | | | [...] | | | | | | [place] [address] | | | | | | [phone] | | | | | | | | +--------+ + + + + | 01/14/ | Office | Cardiac | Randy Figueroa, | | | 2017 | Visit | Rehabilitation | MD [address] | | | | | | [place], | | | | | | [place] [address] | | | | | | [phone] | | | | | | | | +--------+ + + + + | 01/21/ | Office | Cardiac | Randy Figueroa, | | | 2017 | Visit | Rehabilitation | MD [address] | | | | | | [place], | | | | | | [place] [address] | | | | | | [phone] | | | | | | | | +--------+ + + + + | 01/28/ | Office | Cardiac | Randy Figueroa, | | | 2017 | Visit | Rehabilitation | MD [address] | | | | | | [place], | | | | | | [place] [address] | | | | | | [phone] | | | | | | | | +--------+ + + + + | 02/04/ | Office | Cardiac | Randy Figueroa, | | | 2017 | Visit | Rehabilitation | MD [address] | | | | | | [place], | | | | | | [place] [address] | | | | | | [phone] | | | | | | | | +--------+ + + + + | 02/11/ | Office | Cardiac | Randy Figueroa, | | | 2017 | Visit | Rehabilitation | MD [address] | | | | | | [place], | | | | | | [place] [address] | | | | | | [phone] | | | | | | | | +--------+ + + + + | 02/18/ | Office | Cardiac | Randy Figueroa, | | | 2017 | Visit | Rehabilitation | MD [address] | | | | | | [place], | | | | | | [place] [address] | | | | | | [phone] | | | | | | | | +--------+ + + + + | 02/24/ | Procedure | Physical Medicine | Prosper Esteves | | | 2017 | visit | and Rehabilitation | MD [address] | | | | | | [place] | | | | | | [address] | | | | | | | | +--------+ + + + + | 02/25/ | Office | Cardiac | Randy Figueroa, | | | 2017 | Visit | Rehabilitation | MD [address] | | | | | | [place], | | | | | | [place] [address] | | | | | | [phone] | | | | | | | | +--------+ + + + + | 03/04/ | Office | Cardiac | Randy Figueroa, | | | 2017 | Visit | Rehabilitation | MD [address] | | | | | | [place], | | | | | | [place] [address] | | | | | | [phone] | | | | | | | | +--------+ + + + + | 03/11/ | Office | Cardiac | Randy Figueroa, | | | 2017 | Visit | Rehabilitation | [place] [address] | | | | | | [place], | | | | | | [place] [address] | | | | | | [phone] | | | | | | | | +--------+ + + + + as of this encounter Results POC Glucose (10/10/2017 1142) + +---------+ + | Component | Value | Ref Range | + +---------+ + | Glucose, POC | 127 (H) | 70 - 109 mg/dL | + +---------+ + + + + | Specimen | Performing Laboratory | + + + | Blood | [facility] [address] | | | [place] [address] | + + + POC Glucose (10/10/2017635) + +-------+ + | Component | Value | Ref Range | + +-------+ + | Glucose, POC | 108 | 70 - 109 mg/dL | + +-------+ + + + + | Specimen | Performing Laboratory | + + + | Blood | [facility] [address] | | | [place] [address] | + + + POC Glucose (10/09/20172041) + +---------+ + | Component | Value | Ref Range | + +---------+ + | Glucose, POC | 125 (H) | 70 - 109 mg/dL | + +---------+ + + + + | Specimen | Performing Laboratory | + + + | Blood | [facility] [address] | | | [place] [address] | + + + POC Glucose (10/09/2017 1659) + +-------+ + | Component | Value | Ref Range | + +-------+ + | Glucose, POC | 97 | 70 - 109 mg/dL | + +-------+ + + + + | Specimen | Performing Laboratory | + + + | Blood | [facility] [address] | | | [place] [address] | + + + POC Glucose (10/09/2017 1155) + +---------+ + | Component | Value | Ref Range | + +---------+ + | Glucose, POC | 148 (H) | 70 - 109 mg/dL | + +---------+ + + + + | Specimen | Performing Laboratory | + + + | Blood | [facility] [address] | | | [place] [address] | + + + POC Glucose (10/09/2017637) + +-------+ + | Component | Value | Ref Range | + +-------+ + | Glucose, POC | 109 | 70 - 109 mg/dL | + +-------+ + + + + | Specimen | Performing Laboratory | + + + | Blood | [facility] [address] | | | [place] [address] | + + + Extra Lavender Top Tube (10/09/2017 0505) + +-------+ + | Component | Value | Ref Range | + +-------+ + | Extra Lavender Top | Done | | | Tube | | | + +-------+ + + + + | Specimen | Performing Laboratory | + + + | Blood | [facility] [address] | | | [place] [address] | + + + Basic Metabolic Panel [...] GLOMERULAR FILTRATION | >=60 mL/min/1.73m2 | | QATARI | RATE,ESTIMATED mL/min/1.59c2Havu than | | | | 60 Chronic [...] + + + | Blood | [facility] [address] | | | [place] [address] | + + + POC Glucose (10/08/20172110) + +---------+ + | Component | Value | Ref Range | + +---------+ + | Glucose, POC | 120 (H) | 70 - 109 mg/dL | + +---------+ + + + + | Specimen | Performing Laboratory | + + + | Blood | [facility] [address] | | | [place] [address] | + + + POC Glucose (10/08/20171656) + +-------+ + | Component | Value | Ref Range | + +-------+ + | Glucose, POC | 96 | 70 - 109 mg/dL | + +-------+ + + + + | Specimen | Performing Laboratory | + + + | Blood | [facility] [address] | | | [place] [address] | + + + POC Glucose (10/08/2017 111) + +---------+ + | Component | Value | Ref Range | + +---------+ + | Glucose, POC | 146 (H) | 70 - 109 mg/dL | + +---------+ + + + + | Specimen | Performing Laboratory | + + + | Blood | [facility] [address] | | | [place] [address] | + + + POC Glucose (10/08/2017627) + +-------+ + | Component | Value | Ref Range | + +-------+ + | Glucose, POC | 99 | 70 - 109 mg/dL | + +-------+ + + + + | Specimen | Performing Laboratory | + + + | Blood | [facility] [address] | | | [place] [address] | + + + POC Glucose (10/07/20172036) + +---------+ + | Component | Value | Ref Range | + +---------+ + | Glucose, POC | 115 (H) | 70 - 109 mg/dL | + +---------+ + + + + | Specimen | Performing Laboratory | + + + | Blood | [facility] [address] | | | [place] [address] | + + + POC Glucose (10/07/2017 1627) + +---------+ + | Component | Value | Ref Range | + +---------+ + | Glucose, POC | 110 (H) | 70 - 109 mg/dL | + +---------+ + + + + | Specimen | Performing Laboratory | + + + | Blood | [facility] [address] | | | [place] [address] | + + + POC Glucose (10/07/2017 1147) + +---------+ + | Component | Value | Ref Range | + +---------+ + | Glucose, POC | 114 (H) | 70 - 109 mg/dL | + +---------+ + + + + | Specimen | Performing Laboratory | + + + | Blood | [facility] [address] | | | [place] [address] | + + + POC Glucose (10/07/2017737) + +-------+ + | Component | Value | Ref Range | + +-------+ + | Glucose, POC | 104 | 70 - 109 mg/dL | + +-------+ + + + + | Specimen | Performing Laboratory | + + + | Blood | [facility] [address] | | | [place] [address] | + + + Magnesium (10/07/2017350) + +-------+ + | Component | Value | Ref Range | + +-------+ + | MG | 1.9 | 1.8 - 2.5 mg/dL | + +-------+ + + + + | Specimen | Performing Laboratory | + + + | Blood | [facility] [address] | | | [place] [address] | + + + Basic Metabolic Panel [...] GLOMERULAR FILTRATION | >=60 mL/min/1.73m2 | | QATARI | RATE,ESTIMATED mL/min/1.63c6Iwjy than | | | | 60 Chronic [...] | + + + | Blood | [facility] [address] | | | [place] [address] | + + + CBC with Differential [...] + + + | Blood | [facility] [address] | | | [place] [address] | + + + POC Blood Gases (10/07/2017337) + + + + | Component | [...] Laboratory | + + + | | [facility] [address] | | | [place] [address] | + + + XR Chest AP [...] | + + + | Blood | [facility] [address] | | | [place] [address] | + + + POC Glucose (10/06/20172040) + +-------+ + | Component | Value | Ref Range | + +-------+ + | Glucose, POC | 101 | 70 - 109 mg/dL | + +-------+ + + + + | Specimen | Performing Laboratory | + + + | Blood | [facility] [address] | | | [place] [address] | + + + Troponin I (10/06/2017 [...] | + + + | Blood | [facility] [address] | | | [place] [address] | + + + POC Glucose (10/06/2017 1632) + +---------+ + | Component | Value | Ref Range | + +---------+ + | Glucose, POC | 130 (H) | 70 - 109 mg/dL | + +---------+ + + + + | Specimen | Performing Laboratory | + + + | Blood | [facility] [address] | | | [place] [address] | + + + POC Glucose (10/06/2017 112) + +---------+ + | Component | Value | Ref Range | + +---------+ + | Glucose, POC | 120 (H) | 70 - 109 mg/dL | + +---------+ + + + + | Specimen | Performing Laboratory | + + + | Blood | [facility] [address] | | | [place] [address] | + + + POC Glucose (10/06/201732) + +---------+ + | Component | Value | Ref Range | + +---------+ + | Glucose, POC | 110 (H) | 70 - 109 mg/dL | + +---------+ + + + + | Specimen | Performing Laboratory | + + + | Blood | [facility] [address] | | | [place] [address] | + + + XR Chest AP [...] Note | + + | Sebastian, Clayton Results In - 10/06/2017 0837 PST EXAM: [...] + + + | Blood | [facility] [address] | | | [place] [address] | + + + Basic Metabolic Panel [...] GLOMERULAR FILTRATION | >=60 mL/min/1.73m2 | | QATARI | RATE,ESTIMATED mL/min/1.36r6Yrux than | | | | 60 Chronic [...] + + + | Blood | [facility] [address] | | | [place] [address] | + + + CBC with Differential [...] | + + + | Blood | [facility] [address] | | | [place] [address] | + + + POC Glucose (10/05/20172037) + +---------+ + | Component | Value | Ref Range | + +---------+ + | Glucose, POC | 126 (H) | 70 - 109 mg/dL | + +---------+ + + + + | Specimen | Performing Laboratory | + + + | Blood | [facility] [address] | | | [place] [address] | + + + ECG 12 lead [...] | | | | FLORY العلي MD ([id number]) on 10/06/2017 | | | | 7:17:27 [...] FLORY العلي MD | | | | ([id number]) on 10/07/2017 7:10:25 AM | | + [...] | + + + | | [facility] [address] | | | [place] [address] | + + + EGD (10/05/2017 105) + + + | Specimen | Performing Laboratory | + + + | | [facility] | + + + + + | Narrative | + + | Gastroenterology Patient Name: Bob Hood Procedure Date: 10/05/2017 10:56 AM | | Date of : 1955 Admit Type: | | Inpatient Age: 61 Room: [place] [address] Gender: Male Note Status: Finalized Attending MD: | | Terry Weir MD Procedure: Upper GI endoscopy | | Indications: Suspected upper gastrointestinal bleeding | | Providers: Terry Weir MD, Gil Tam RN, Elizabeth Patel | | ALFONSO Rivers, Siddharth Bradley CMA, [place] Campbell | | Babita, Digital Marketer, Yong Napier MD (Anesthesia | | Staff) [...] nurse, the anesthesiologist and the | | corn lab technician in the procedure room. Mental Status [...] In: 11:00:34 AM Scope Out: 11:11:30 AM [facility] | | [facility], [address] [place] [address] | + + XR Chest AP Portable [...] + + | Body Fluid | [facility] [address] | | | [place] [address] | + + + Procalcitonin (10/05/2017 0427) [...] | + + + | Blood | [facility] [address] | | | [place] [address] | + + + Basic Metabolic Panel [...] GLOMERULAR FILTRATION | >=60 mL/min/1.73m2 | | QATARI | RATE,ESTIMATED mL/min/1.85i4Dhkn than | | | | 60 Chronic [...] | + + + | Blood | [facility]avid Crespo | | | [place] [address] | + + + CBC with Differential [...] | + + + | Blood | [facility] Javid Crespo | | | [place] [address] | + + + POC Glucose (10/04/20172111) + +-------+ + | Component | Value | Ref Range | + +-------+ + | Glucose, POC | 108 | 70 - 109 mg/dL | + +-------+ + + + + | Specimen | Performing Laboratory | + + + | Blood | [facility] Javid Crespo | | | [place] [address] | + + + XR Chest AP [...] + + + | Blood | [facility] Javid Crespo | | | [place] [address] | + + + ECG 12 lead [...] Lateral leadsConfirmed by | | | | ZOHRA BREWER, FLORY ([id number]) on 10/05/2017 | | | | 7:23:04 [...] | + + + | Blood | [facility] [address] | | | [place] [address] | + + + Extra Lavender Top Tube (10/04/2017 1443) + +-------+ + | Component | Value | Ref Range | + +-------+ + | Extra Lavender Top | Done | | | Tube | | | + +-------+ + + + + | Specimen | Performing Laboratory | + + + | Blood | [facility] [address] | | | [place] [address] | + + + Troponin I (10/04/2017 [...] | | | | previous results. [employer] | | | [...] | + + + | Blood | [facility] Javid Crespo | | | [place] [address] | + + + Blood Gas, Arterial [...] | + + + | Blood | [facility] Javid Crespo | | | [place] [address] | + + + + + | Narrative | + + | SIMV 16 TV 550, PS+ 10, PEEP +5, 40%, ETCO2 35 QUO308% | + + POC Glucose (10/04/2017 1223) + +-------+ + | Component | Value | Ref Range | + +-------+ + | Glucose, POC | 106 | 70 - 109 mg/dL | + +-------+ + + + + | Specimen | Performing Laboratory | + + + | Blood | [facility] Javid Crespo | | | [place] [address] | + + + CBC with Differential [...] | + + + | Blood | [facility] Javid Crespo | | | [place] [address] | + + + Magnesium (10/04/2017 0343) + +-------+ + | Component | Value | Ref Range | + +-------+ + | MG | 1.9 | 1.8 - 2.5 mg/dL | + +-------+ + + + + | Specimen | Performing Laboratory | + + + | Blood | [facility]av[facility] Crespo | | | [place] [address] | + + + Basic Metabolic Panel [...] GLOMERULAR FILTRATION | >=60 mL/min/1.73m2 | | QATARI | RATE,ESTIMATED mL/min/1.69u2Zmgi than | | | | 60 Chronic [...] | + + + | Blood | [facility] | | | [place] [address] | + + + Troponin I (10/03/20172327) + + + + | Component | [...] | | | | previous results. [employer] | | | [...] | + + + | Blood | [facility] Javid Crespo | | | [place] [address] | + + + POC Glucose (10/03/20172145) + +---------+ + | Component | Value | Ref Range | + +---------+ + | Glucose, POC | 115 (H) | 70 - 109 mg/dL | + +---------+ + + + + | Specimen | Performing Laboratory | + + + | Blood | [facility] Javid Crespo | | | [place] [address] | + + + Basic Metabolic Panel [...] GLOMERULAR FILTRATION | >=60 mL/min/1.73m2 | | QATARI | RATE,ESTIMATED mL/min/1.53c8Azzq than | | | | 60 Chronic [...] + + + | Blood | [facility] Crespo | | | [place] [address] | + + + Procalcitonin (10/03/2017 1545) [...] | + + + | Blood | [facility] Javid Crespo | | | [place] [address] | + + + Troponin I (10/03/2017 [...] Juan Srinivasan. | | | | [employer] | | | [...] | + + + | Blood | [facility] Javid Crespo | | | [place] [address] | + + + CV CARDIAC PROCEDURE (10/03/2017 1518) + + | Narrative | + + | Delmer Dai MD 10/03/2017 16:25 CARDIAC CATHETERIZATION REPORT DATE | | OF PROCEDURE: 10/03/17 PRECATHETERIZATION INFORMED CONSENT : Yes | | TIMEOUT Before start of procedure done: Yes GUIDE CRUISE: Delmer Mobley M.D., | | [place] PRIMARY PHYSICIAN: Chato Matson MD PROCEDURES PERFORMED: Left | | heart catheterization, selective coronary arteriography INDICATIONS | | : 61-year-old gentleman presenting with acute hypoxic respiratory failure, new left | | bundle branch block, increasing troponin levels, history of coronary artery PCI and | | prior anterior myocardial infarction ARTERIAL ACCESS: Right femoral artery 6 Cymraes | | CLOSURE DEVICE:. Sheath left in [...] Seldinger technique and a 6 | | Cymraes sheath was inserted. Selective coronary arteriography was performed using 6 | | Cymraes Kymberly right 4 and left 4 catheters. [...] instability we will transfer the patient to [place] for consideration of | | urgent coronary revascularization. Delmer Mobley M.D., F.A.C.C. | | [place], [place] | | | + + Culture, Blood (10/03/20171314) + + + + | Component | Value | Ref Range | + + + + | Culture | No growth after 5 days incubation. | | + + + + + + + | Specimen | Performing Laboratory | + + + | Blood - Peripheral | [facility] [address] | | Blood | [place] [address] | + + + ECG 12 lead [...] ZOHRA BREWER, | | | | FLORY ([id number]) on 10/04/2017 10:35:54 AM | | | [...] + + + | Blood | [facility] Javid Crespo | | | [place] [address] | + + + XR Chest AP [...] + | Blood - Line | [facility] Javid Crespo | | | [place] [address] | + + + Slide Review, Peripheral [...] + + + | Blood | [facility]resp[facility] | | | [place] [address] | + + + + + | [...] + + + | Blood | [facility] Javid Crespo | | | [place] [address] | + + + Troponin I (10/03/20171128) [...] | | | | myocardial infarction. [employer] | | | | of Cardiology [...] | + + + | Blood | [facility] Javid MamtaFletcher Crespo | | | [place] [address] | + + + B Type Natriuretic Peptide (10/03/20171128) + +---------+ + | Component | Value | Ref Range | + +---------+ + | BNP | 495 (H) | <100 pg/mL | + +---------+ + + + + | Specimen | Performing Laboratory | + + + | Blood | [facility] Javid Crespo | | | [place] [address] | + + + Hepatic Function Panel [...] | + + + | Blood | [facility] [address] | | | [place] [address] | + + + Protime INR (10/03/2017 [...] | + + + | Blood | [facility] Javid Crespo | | | [place] [address] | + + + Basic Metabolic Panel [...] GLOMERULAR FILTRATION | >=60 mL/min/1.73m2 | | QATARI | RATE,ESTIMATED mL/min/1.85s5Lvgb than | | | | 60 Chronic [...] + + + | Blood | [facility] [address] | | | [place] [address] | + + + CBC with Differential [...] | + + + | Blood | [facility] Javid Crespo | | | [place] [address] | + + + ECHO Complete (10/03/2017 1118) + +-------+ + | Component | Value | Ref Range | + +-------+ + | LVEF-TTE | 39 | | | TRANSTHORACIC ECHO | | | + +-------+ + + + | Narrative | + + | Transthoracic Echocardiography Report (TTE) Demographics Patient | | Name MIKE VELAQSUEZ Room Number 458 | | J Patient [id number] Date of | | Study 10/03/2017 Number Visit Number [id number] | | Referring Physician BENEDICT RAYGOZA Number | | Date of 1955 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 Operator WILBERT | | RAJIV HURLEY Age 61 year(s) | | Interpreting DELMER MOBLEY MD, | | Software Systems Analyst | | FACC Gender Male 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 Digital Marketer | | Procedure Type of Study TTE [...] | Electronically signed by DELMER MOBLEY MD, [facility](Interpreting physician) on | | [...] 42.65 ml | | | | EF Gnjrxlhww54% Left Ventricle Diastolic Dimension: 5.92 cm Septum [...] | J | | | | Patient [id number] Date of Study 10/03/2017 | | Number | | | | Visit Number [id number] | | | | Referring Physician BENEDICT RAYGOZA | | Number | | | | Date of 1955 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 Operator WILBERT [facility] | | | | Age 61 year(s) Interpreting DELMER MOBLEY MD, | | Software Systems Analyst FACC | | | | Gender Male Nurse | | | | Stress Digital Marketer | | | | Procedure | | [...] Signature | | | | | | | | | | Findings [...] [place] Volume: 42.65 ml | | EF Jpslsywxl98% | | | | Left Ventricle | [...] + + + | Blood | [facility] Javid Crespo | | | [place] [address] | + + + Culture, MRSA (10/03/2017 1039) + + + + | Component | Value | Ref Range | + + + + | Culture | Negative for MRSA by chromogenic agar | | | | method | | + + + + + + + | Specimen | Performing Laboratory | + + + | Stool | [facility] | | | [place] [address] | + + + Culture, Respiratory, Lower, [...] + + | Respiratory - | [facility] Javid Crespo | | Sputum, expectorated | [place] [address] | + + + Influenza A and [...] + + + | Respiratory - | [facility] Javid Crespo | | Nasopharynx | [place] [address] | + + + Campylobacter Ag,Qual (10/03/2017 1039) + + + + | Component | Value | Ref Range | + + + + | Campylobacter AG, | Negative | Negative | | Qual | | | + + + + + + + | Specimen | Performing Laboratory | + + + | Stool | [facility]resp[facility] | | | [place] [address] | + + + Culture, Stool Result [...] + + + | Stool | [facility] [address] | | | [place] [address] | + + + Shigatoxin 1 and [...] | + + + | Stool | [facility] [address] | | | [place] [address] | + + + Culture, Stool (10/03/2017 1039) + + + | Specimen | Performing Laboratory | + + + | Stool | [facility] [address] | | | [place] [address] | + + + + + | Narrative | + + | The following orders were created for panel order Culture, Stool. | | Procedure | | Abnormality Status | | --------- | | ------ Shigatoxin 1 | | and 2[[id number]] Normal Final | | result Culture, Stool | | Result[[id number]] Final | | result Campylobacter | | Ag,Qual[[id number]] Normal Final | | result Please view [...] + + + | Stool | [facility] Javid Crespo | | | [place] [address] | + + + Ova and Parasite [...] Stool | [facility] [address] [facility] | | | [place] [address] | + + + + + | Narrative | + + | Performed at: - [facility] [address] [id number] Lab | | Director: Yesenia Gee MD, Phone: [phone] | + + Fecal leukocytes (10/03/2017 1039) + + + + | Component | Value | Ref Range | + + + + | Lactoferrin, Qual | Negative | Negative | + + + + + + + | Specimen | Performing Laboratory | + + + | Stool | [facility] [address] | | | [place] [address] | + + + Urinalysis with Microscopic [...] | + + + + | Specific [place] | 1.006 | 1.001 - 1.030 | [...] + + + | Urine | [facility]resp[facility] | | | [place] [address] | + + + LABS - EXTERNAL [...] Visit Diagnoses Not on filein this encounter Admitting Diagnoses + + | [...] | | First dose on [facility] 10/08/17 at 0915 | | | | [...] scheduled: AC, | | | NPO, Daytime 3518-7302 Use NIGHT | | | DOSE for doses scheduled: | | | HS, 3AM, Nighttime 6752-1522 | | + +---+ | | | + +---+ + +-------+ +--------+---+---+ | iohexol (OMNIPAQUE 350) 350 | Given | | 50 mLs | | | | mg/mL injection ONCE PRN, | | 8 15:07 | | | | | Starting 10/03/17 at 1507, | | PST | | | | | Intra-op | | | | | | + +-------+ +--------+---+---+ +---+---+ | | | +---+---+ + +-------+ +-------+---+---+ | lidocaine 1% injection ONCE | Given | | 2 mLs | | | | PRN, Starting 10/03/17 at | | 8 14:37 | | | | | 1437, Intra-op | | PST | | | | [...] in NS (LEVOPHED) | New Bag | | 10 | 37.5 | | | 16 mcg/mL infusion CONTINUOUS | | 8 14:41 | mcg/min | mL/hr | | | PRN, Starting 10/03/17 at | | PST | | | | | 1441, [...]
--- OUTSIDE RECORDS SUMMARY | ~2017-12-16 | XMS | Encounter Summary ---
Demographics + + + | Address | [address] | | | [place] [address] | + + + | Home Phone [...] Author | [facility] | | | and [place] | + + + | Organization | [facility] | | | and [place] | + + + | Address | Unknown | + + + | Phone | Unavailable | + + + Support + + + + + | Name | Relationship | Address | Phone | + + + + + | [place] Will | ECON | [address] | | | | | #[place] | | | | | [address] | | + + + + + Care Team Providers + +------+ + | Care Grain Mill Worker Name | Role | Phone | [...] | | | | | [address] | | | | | | [place] | | | | | | [address] | | | | | | [phone] | | | +--------+ + + + [...] | | | | | | [place] [address] | | | | | | [phone] | | | | | | | | +--------+ + + + + | 12/24/ | Office | Cardiac | Randy Figueroa, | | | 2017 | Visit | Rehabilitation | MD [address] | | | | | | [place], | | | | | | [place] [address] | | | | | | [phone] | | | | | | | | +--------+ + + + + | 12/31/ | Office | Cardiac | Randy Figueroa, | | | 2017 | Visit | Rehabilitation | MD [address] | | | | | | [place], | | | | | | [place] [address] | | | | | | [phone] | | | | | | | | +--------+ + + + + | 01/07/ | Office | Cardiac | Randy Figueroa, | | | 2017 | Visit | Rehabilitation | MD [address] | | | | | | [place], | | | | | | [place] [address] | | | | | | [phone] | | | | | | | [...] | | | | | | [place] [address] | | | | | | [phone] | | | | | | | | +--------+ + + + + | 01/14/ | Office | Cardiac | Randy Figueroa, | | | 2017 | Visit | Rehabilitation | MD [address] | | | | | | [place], | | | | | | [place] [address] | | | | | | [phone] | | | | | | | | +--------+ + + + + | 01/21/ | Office | Cardiac | Randy Figueroa, | | | 2017 | Visit | Rehabilitation | MD [address] | | | | | | [place], | | | | | | [place] [address] | | | | | | [phone] | | | | | | | | +--------+ + + + + | 01/28/ | Office | Cardiac | Randy Figueroa, | | | 2017 | Visit | Rehabilitation | MD [address] | | | | | | [place], | | | | | | [place] [address] | | | | | | [phone] | | | | | | | | +--------+ + + + + | 02/04/ | Office | Cardiac | Randy Figueroa, | | | 2017 | Visit | Rehabilitation | MD [address] | | | | | | [place], | | | | | | [place] [address] | | | | | | [phone] | | | | | | | | +--------+ + + + + | 02/11/ | Office | Cardiac | Randy Figueroa, | | | 2017 | Visit | Rehabilitation | MD [address] | | | | | | [place], | | | | | | [place] [address] | | | | | | [phone] | | | | | | | | +--------+ + + + + | 02/18/ | Office | Cardiac | Randy Figueroa, | | | 2017 | Visit | Rehabilitation | MD [address] | | | | | | [place], | | | | | | [place] [address] | | | | | | [phone] | | | | | | | | +--------+ + + + + | 02/24/ | Procedure | Physical Medicine | Prosper Esteves | | | 2017 | visit | and Rehabilitation | MD [address] | | | | | | [place] | | | | | | [address] | | | | | | | | +--------+ + + + + | 02/25/ | Office | Cardiac | Randy Figueroa, | | | 2017 | Visit | Rehabilitation | MD [address] | | | | | | [place], | | | | | | [place] [address] | | | | | | [phone] | | | | | | | | +--------+ + + + + | 03/04/ | Office | Cardiac | Randy Figueroa, | | | 2017 | Visit | Rehabilitation | MD [address] | | | | | | [place], | | | | | | [place] [address] | | | | | | [phone] | | | | | | | | +--------+ + + + + | 03/11/ | Office | Cardiac | Randy Figueroa, | | | 2017 | Visit | Rehabilitation | MD [address] | | | | | | [place], | | | | | | [place] [address] | | | | | | [phone] | | | | | | | | +--------+ + + + + as of this encounter Visit Diagnoses Not on filein this encounter"
--- OUTSIDE RECORDS SUMMARY | ~2017-12-16 | XMS | Encounter Summary ---
Demographics + + + | Address | [address] | | | [place] [address] | + + + | Home Phone | | + + + | Preferred Language | Unknown | + + + | Marital Status | | + + + | Uatsdin Affiliation | NRP | + + + | Race | White | + + + | Ethnic Group | Not or | + + + Author + + + | Author | [facility] | + + + | Organization | [facility] | + + + | Address | Unknown | + + + | Phone | Unavailable | + + + Support + + + + + | Name | Relationship | Address | Phone | + + + + + | ANNA MCKEON | ECON | [address] | | | | | [place] [address] | | + + + + + Care Team Providers + +------+ + | Care Artificial Limb Fitter Name | Role | Phone | [...] | | 2018 | | Services at [facility] | [place], [place] | Exam | | | | [address] [facility] | [address] | | | | | [facility] | | | | | | Mailcode: [id number] | | | | | | [facility] | | | | | | [place], [place] | | | | | | [address] | | | | | | [phone] | | | +--------+ + + + [...]
--- OUTSIDE RECORDS SUMMARY | ~2017-12-16 | XMS | Clinical Summary ---
Demographics + + + | Address | [address] | | | [place] [address] | + + + | Home Phone [...] [facility] | | | and [place] | + + + | Organization | [facility] | | | and [place] | + + + | Address | Unknown | + + + | Phone | Unavailable | + + + Support + + + + + | Name | Relationship | Address | Phone | + + + + + | Venice Mckeon | ECON | [address] | | | | | #[place] | | | | | [address] | | + + + + + Care Team Providers + +------+ + | Care Director Of Finance Name | Role | Phone [...] | | Activ | | (VITAMIN D-3) [id number] | a week. | | | | [...] | + + + + + | ECOLOGY PROFESSOR-D (AICD) Medtronic 10/16/17 EULOGIO Darby | 10/19/2017 | + + + + + | Overview: Formatting of this note may be different from the | | original. MODEL NAME MODEL# SERIAL# DATE IMPLANTED GENERATOR | | Medtronic [id number] 10/16/17 RV LEAD Medtronic [id number] | | [id number] 10/16/17 A LEAD Medtronic [id number] 10/16/17 | | Coronary Sinus LEAD Medtronic 4598 88 [id number] 10/16/17 | | Indication: ischemic cardiomyopathy with reduced EF 30-35% | |Coronary Sinus LEAD Medtronic 4598 88 [id number] 10/16/17 | |Indication: ischemic cardiomyopathy with reduced EF 30-35% | + + + + + | Implantable defibrillator reprogramming/check | 10/19/2017 | + + + | H/O atrial flutter | 10/19/2017 | + + + | Pulmonary edema | 10/03/2017 | + + + | Ischemic cardiomyopathy | 05/26/2017 | + + + + + | Overview: S/P Medtronic ECOLOGY PROFESSOR-D 10-16-17 Dr Darby, [facility] [...] will transfer | | the patient to [place] for consideration of urgent coronary | | [...] | Acute anterior wall RI (HCC) | 04/03/2017 | + + + [...] 2017 | Visit | | MD | RI ([facility]) (Primary | | | | | | Dx) | +--------+ + + + + | 12/03/ | Office | | Randy Figueroa, | Coronary artery | | 2017 | Visit | | MD | disease involving | | | | | | big sandy coronary | | | | | | artery of big sandy | | | | | | heart [...] | | | | | | big sandy coronary | | | | | | artery of big sandy | | | | | | heart without angina | | | | | | pectoris (Primary | | | | | | Dx) | +--------+ + + + + | 11/24/ | Hospital | | Jenny, | Coronary artery | | 2017 | Encounter | | ADARSH Sy | disease involving | | | | | Tiki Linn, | big sandy coronary | | | | | Technologist | artery of big sandy | | | | | | heart without angina | | | | | | pectoris | +--------+ + + + + | 11/24/ | Hospital | | Jenny, | Ischemic | | 2017 | Encounter | | ADARSH Sy | cardiomyopathy | [...] | | | | | (Primary Dx); ECOLOGY PROFESSOR-D | | | | | | (AICD) Medtronic | | | | | | 10/16/17 [facility] Wilner; | | | | | [...] 11/11/ | Office | | Jenny | ECOLOGY PROFESSOR-D (AICD) | | 2017 | Visit | | ADARSH Sy | Medtronic 10/16/17 | | | | | | OKMENDY Darby | | | | | | (Primary Dx); | | | | | | Tachycardia; | | | | | | Ischemic | | | | | | cardiomyopathy; | | | | | | Coronary artery | | | | | | disease involving | | | | | | big sandy coronary | | | | | | artery of big sandy | | | | | | heart without angina | | | | | | pectoris; Acute | | | | | | anterior wall RI | | | | | | ([facility]); H/O atrial | | | | | [...] | | | | | (Primary Dx); ECOLOGY PROFESSOR-D | | | | | | (AICD) [...] cardiomyopathy; | | | | | | ECOLOGY PROFESSOR-D (AICD) | | | | | | [...] | | | | | | big sandy coronary | | | | | | artery of big sandy | | | | | | heart without angina | | | | | | pectoris; Acute | | | | | | anterior wall RI | | | | | | ([facility]); ECOLOGY PROFESSOR-D (AICD) | | | | | | [...] | | | MD Lind, | infarction) ([facility]); | | 10/10/ | | | MD [...] | | | | | | big sandy coronary | | | | | | artery of big sandy | | | | | | heart [...] | | | Number: | | | [id number] | | | Date of | | [...] | | ltants: | | | Dr. Crane | | | (cardiology | | | [...] | CAD/recent | | | ant wall RI | | | in 03/2017 | | [...] | | anterior | | | wall RI | | | CAD | | | [...] not | | | | | | CIT[place] 60 | | | >=60 | | [...] | | anterior | | | wall RI, | | | post PTCA | | [...] | CAD/recent | | | ant wall RI | | | in 03/2017 | | [...] | | cardiology | | | at [facility] and | | | was | [...] | Visit | | MD [address] | | | | | | [place], | | | | | | [place] [address] | | | | | | [phone] | | | | | | | | +--------+ + + + + | 12/24/ | Office | | Randy Figueroa, | | | 2017 | Visit | | MD [address] | | | | | | [place], | | | | | | [place] [address] | | | | | | [phone] | | | | | | | | +--------+ + + + + | 12/31/ | Office | | Randy Figueroa, | | | 2017 | Visit | | MD [address] | | | | | | [place], | | | | | | [place] [address] | | | | | | [phone] | | | | | | | | +--------+ + + + + | 01/07/ | Office | | Randy Figueroa, | | | 2017 | Visit | | MD [address] | | | | | | [place], | | | | | | [place] [address] | | | | | | [phone] | | | | | | | | +--------+ + + + + | 01/13/ | Clinical | | | | | 2017 | Support | | | | +--------+ + + + + | 01/13/ | Office | | Jenny, | | | 2017 | Visit | | [address] | | | | | | [address] [place], | | | | | | [place] [address] | | | | | | [phone] | | | | | | | | +--------+ + + + + | 01/14/ | Office | | Randy Figueroa, | | | 2017 | Visit | | [address] | | | | | | [place], | | | | | | [place] [address] | | | | | | [phone] | | | | | | | | +--------+ + + + + | 01/21/ | Office | | Randy Figueroa, | | | 2017 | Visit | | MD [address] | | | | | | [place], | | | | | | [place] [address] | | | | | | [phone] | | | | | | | | +--------+ + + + + | 01/28/ | Office | | Randy Figueroa, | | | 2017 | Visit | | MD [address] | | | | | | [place], | | | | | | [place] [address] | | | | | | [phone] | | | | | | | | +--------+ + + + + | 02/04/ | Office | | Randy Figueroa, | | | 2017 | Visit | | MD [address] | | | | | | [place], | | | | | | [place] [address] | | | | | | [phone] | | | | | | | | +--------+ + + + + | 02/11/ | Office | | Randy Figueroa, | | | 2017 | Visit | | MD [address] | | | | | | [place], | | | | | | [place] [address] | | | | | | [phone] | | | | | | | | +--------+ + + + + | 02/18/ | Office | | Randy Figueroa, | | | 2017 | Visit | | MD [address] | | | | | | [place], | | | | | | [place] [address] | | | | | | [phone] | | | | | | | | +--------+ + + + + | 02/24/ | Procedure | | Prosper Esteves | | | 2017 | visit | | MD [address] | | | | | | [place] | | | | | | [address] | | | | | | | | +--------+ + + + + | 02/25/ | Office | | Randy Figueroa, | | | 2017 | Visit | | MD [address] | | | | | | [place], | | | | | | [place] [address] | | | | | | [phone] | | | | | | | | +--------+ + + + + | 03/04/ | Office | | Randy Figueroa, | | | 2017 | Visit | | MD [address] | | | | | | [place], | | | | | | [place] [address] | | | | | | [phone] | | | | | | | | +--------+ + + + + | 03/11/ | Office | | Randy Figueroa, | | | 2017 | Visit | | MD [address] | | | | | | [place], | | | | | | [place] [address] | | | | | | [phone] | | | | | | | [...] / Lot | + +--------+--------+ +--------+--------+--------+ | Logistics Lead-D MedtronicImplanted: | Implan | | MEDTRONIC - [...] N/A: | ISAACS | | 12/29/ | [id number] | | Eluting Coronary Stent System | | [place] | DIAGNOSTICS | | 2019 | 0- / | | Implanted: Qty: 1 on | | ry | - DAINA | | | | | 03/15/2017 by Monse Ross, | | | | | | /[id number] | | | | | | | | 60 | + +--------+--------+ +--------+--------+--------+ | Xience Alpine Everolimus | Stent | N/A: | ISAACS | | 11/03/ | [id number] | | Eluting Coronary Stent System | | [place] | DIAGNOSTICS | | 2019 | 0-23 / | | Implanted: Qty: 1 on | | ry | - DAINA | | | | | 03/15/2017 by Monse Ross, | | | | | | /[id number] | | | | | | | [...] PM | + + ECHO Complete (11/24/2017 8017)Only the most recent of 2 results within [...] Room Number J Patient Number | | [id number] Date of Study 11/24/2017 Visit Number | | [id number] Referring Physician | | THERESE YOSSI Number Date of 1955 | | Card Feeder TUCKER DOVE Age 62 | | year(s) Interpreting RANDY FIGUEROA MD | | Cafe Operator | | Gender Male 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 Oriental Rug Repairer | | Procedure Type of Study TTE [...] Vol/BSA Index: 43 mL/m^2 EF | | Xprkhcjgi27% Left Ventricle Diastolic Dimension: 4.9 cm Septum [...] J | | | | Patient Number [id number] Date of Study 11/24/2017 | | | | Visit Number [id number] | | | | Referring Physician THERESE SY | | Number | | | | Date of 1955 Card Feeder TUCKER DOVE | | | | Age 62 year(s) Interpreting RANDY FIGUEROA MD | | Cafe Operator | | | | Gender Male Nurse | | | | Stress Oriental Rug Repairer | | | | Procedure | | [...] | LA Vol/BSA Index: 43 mL/m^2 EF Izvtqbssw94% | | | | Left Ventricle | | | | Diastolic Dimension: 4.9 cm | | Septum Diastolic: 1.6 cm | | PW Diastolic: 1.4 cm | | | | Miscellaneous | | | | Aorta | | | | Aortic Root: 3.7 cm | | Ascending Aorta: 3.6 cm | + + Device Interrogation - Remote (11/12/2017 1344) + + + | Specimen | Performing Laboratory | + + + | | [facility] | + + + + + | Narrative | + + | Randy Figueroa MD 11/16/2017 17:06 Refer to [facility] documentation and | | remote PDF scanned into ITN for remote interrogation results. Data collected by [...] Interrogation CANCELED: Device Interrogation - Remote 2. ECOLOGY PROFESSOR-D | | (AICD) Medtronic 10/16/17 [employer] Z95.810 V45.02 Device Interrogation | | [...] | + + ECG 12 lead (10/19/2017 3721)Only the most recent of 5 results within [...] NEMO BREWER, | | | | RANDY ([id number]) on 10/19/2017 5:14:23 PM | | | |Confirmed by NEMO BREWER, RANDY ([id number]) on 10/19/2017 5:14:23 PM | | | [...] + + + | Blood | [facility] [address] | | | [place] [address] | + + + External Lab: Triglycerides [...] | + + + | Blood | [facility] [address] | | | [place] [address] | + + + Basic Metabolic Panel [...] GLOMERULAR FILTRATION | >=60 mL/min/1.73m2 | | [place] | RATE,ESTIMATED mL/min/1.75j2Tsso than | | | | 60 Chronic [...] | + + + | Blood | [facility] [address] | | | [place] [address] | + + + CBC with Differential [...] | + + + | Blood | [facility] [address] | | | [place] [address] | + + + Magnesium (10/07/2017 0351)Only the most recent of 3 results within the time period is incl uded. + +-------+ + | Component | Value | Ref Range | + +-------+ + | MG | 1.9 | 1.8 - 2.5 mg/dL | + +-------+ + + + + | Specimen | Performing Laboratory | + + + | Blood | [facility] [address] | | | [place] [address] | + + + POC Blood Gases [...] Laboratory | + + + | | [facility] [address] | | | [place] [address] | + + + XR Chest AP [...] | | | | Yuki Alan. [employer] | | | | Cardiology [...] [address] | | | [place] [address] | + + + EGD (10/05/2017 1056) [...] Bradley CMA, [place] Campbell | | Babita, Oriental Rug Repairer, Yong Napier MD (Anesthesia | | Staff) [...] nurse, the anesthesiologist and the | | milking machine technician in the procedure room. Mental Status [...] Out: 11:11:30 AM Buck Shoemaker | | [facility], [address] [facility], [place] [address] | + + Occult Blood, Gastric (10/05/2017 [...] + + + | Body Fluid | [facility] [address] | | | [place] [address] | + + + Procalcitonin (10/05/2017 0427)Only [...] | + + + | Blood | [facility] [address] | | | [place] [address] | + + + Extra Green Top Tube (10/04/2017 1556) + +-------+ + | Component | Value | Ref Range | + +-------+ + | Extra Green Top Tube | Done | | + +-------+ + + + + | Specimen | Performing Laboratory | + + + | Blood | [facility] [address] | | | [place] [address] | + + + Blood Gas, Arterial [...] + + + | Blood | [facility] [address] | | | [place] [address] | + + + + + | Narrative | + + | SIMV 16 TV 550, PS+ 10, PEEP +5, 40%, ETCO2 35 BCK138% | + + CV CARDIAC PROCEDURE (10/03/2017 1518) + + | Narrative | + + | Delmer Dai MD 10/03/2017 16:25 CARDIAC CATHETERIZATION REPORT DATE | | OF PROCEDURE: 10/03/17 PRECATHETERIZATION INFORMED CONSENT : Yes | | TIMEOUT Before start of procedure done: Yes REGISTERED SALES ASSISTANT: Delmer Gomez M.D., | | Nora. PRIMARY PHYSICIAN: Chato Matson MD PROCEDURES PERFORMED: Left | | heart catheterization, selective coronary arteriography INDICATIONS | | : 61-year-old gentleman presenting with acute hypoxic respiratory failure, new left | | bundle branch block, increasing troponin levels, history of coronary artery PCI and | | prior anterior myocardial infarction ARTERIAL ACCESS: Right femoral artery 6 Honduran | | CLOSURE DEVICE:. Sheath left in [...] Seldinger technique and a 6 | | Honduran sheath was inserted. Selective coronary arteriography was performed using 6 | | Honduran Kymberly right 4 and left 4 catheters. [...] instability we will transfer the patient to [place] for consideration of | | urgent coronary revascularization. Delmer Gomez M.D., F.A.C.C. | | Live Truck Technician [place], [place] | | | + + Culture, [...] + | Blood - Peripheral | [facility] [address] | | Blood | [place] [address] | + + + Slide Review, Peripheral [...] + + + | Blood | [facility] [address] | | | [place] [address] | + + + + + | [...] | + + + | Blood | [facility] [address] | | | [place] [address] | + + + B Type Natriuretic Peptide (10/03/2017 1129) + +---------+ + | Component | Value | Ref Range | + +---------+ + | BNP | 495 (H) | <100 pg/mL | + +---------+ + + + + | Specimen | Performing Laboratory | + + + | Blood | [facility] [address] | | | [place] [address] | + + + Lactic Acid (10/03/2017 1129) + +-------+ + | Component | Value | Ref Range | + +-------+ + | LACTATE | 1.2 | 0.5 - 2.2 mmol/L | + +-------+ + + + + | Specimen | Performing Laboratory | + + + | Blood | [facility] [address] | | | [place] [address] | + + + Hepatic Function Panel [...] + + + | Blood | [facility] [address] | | | [place] [address] | + + + Campylobacter Ag,Qual (10/03/2017 1039) + + + + | Component | Value | Ref Range | + + + + | Campylobacter AG, | Negative | Negative | | Qual | | | + + + + + + + | Specimen | Performing Laboratory | + + + | Stool | [facility] [address] | | | [place] [address] | + + + Culture, MRSA (10/03/2017 1039) + + + + | Component | Value | Ref Range | + + + + | Culture | Negative for MRSA by chromogenic agar | | | | method | | + + + + + + + | Specimen | Performing Laboratory | + + + | Stool | [facility] [address] | | | [place] [address] | + + + Culture, Stool Result [...] | + + + | Stool | [facility] [address] | | | [place] [address] | + + + Influenza A and [...] + + + | Respiratory - | [facility] [address] | | Nasopharynx | [place] [address] | + + + Shigatoxin 1 and [...] | + + + | Stool | [facility] [address] | | | [place] [address] | + + + Ova and Parasite [...] Stool | REFERENCE LAB [facility] [address] [facility] | | | [place] [address] | + + + + + | Narrative | + + | Performed at: [address] [id number] Lab | | Director: Yesenia Gee MD, Phone: [phone] | + + Fecal leukocytes (10/03/2017 1039) + + + + | Component | Value | Ref Range | + + + + | Lactoferrin, Qual | Negative | Negative | + + + + + + + | Specimen | Performing Laboratory | + + + | Stool | [facility] [address] | | | [place] [address] | + + + Clostridium difficile A [...] | + + + | Stool | [facility] [address] | | | [place] [address] | + + + Culture, Respiratory, Lower, [...] + + + | Respiratory - | [facility] [address] | | Sputum, expectorated | [place] [address] | + + + Culture, Stool (10/03/2017 1039) + + + | Specimen | Performing Laboratory | + + + | Stool | [facility] [address] | | | [place] [address] | + + + + + | Narrative | + + | The following orders were created for panel order Culture, Stool. | | Procedure | | Abnormality Status | | --------- | | ------ Shigatoxin 1 | | and 2[[id number]] Normal Final | | result Culture, Stool | | Result[[id number]] Final | | result Campylobacter | | Ag,Qual[[id number]] Normal Final | | result Please view [...] | + + + + | Specific Snowflake | 1.006 | 1.001 - 1.030 | [...] | + + + | Urine | [facility] [address] | | | [place] [address] | + + + IMAGING REPORT - [...] | Self | [birth year] | Home: | [address] | | | al/Fam | | 1956 | [phone] | [address] [place] | | | [place]wo | | | [address] | [address] | + +--------+ +--------+ + +
--- OUTSIDE RECORDS SUMMARY | ~2017-12-16 | XMS | Encounter Summary ---
Demographics + + + | Address | [address] | | | [place] [address] | + + + | Home Phone [...] + | Author | [facility] | | | and [place] | + + + | Organization | [facility] | | | and [place] | + + + | Address | Unknown | + + + | Phone | Unavailable | + + + Support + + + + + | Name | Relationship | Address | Phone | + + + + + | Venice Will | ECON | [address] | | | | | #[place] | | | | | [address] | | + + + + + Care Team Providers + +------+ + | Care Fixed Wing Aircraft Flight Mechanic Name | Role | Phone [...] + + | 11/05/ | Telephone | [facility] [place] | Jenny, | Other | | 2017 | | CARDIOLOGY [address] | ADARSH [address] | | | | | [place], | [place], | | | | | [place] [address] | [place] [address] | | | | | [phone] | [phone] | | | | | | | [...] [place] | | | | | | [place], | | | | | | [place] [address] | | | | | | [phone] | | | | | | | | +--------+ + + + + | 12/24/ | Office | Cardiac | Randy Figueroa, | | | 2017 | Visit | Rehabilitation | MD [address] | | | | | | [place], | | | | | | [place] [address] | | | | | | [phone] | | | | | | | | +--------+ + + + + | 12/31/ | Office | Cardiac | Randy Figueroa, | | | 2017 | Visit | Rehabilitation | MD [address] [place] | | | | | | [place], | | | | | | [place] [address] | | | | | | [phone] | | | | | | | | +--------+ + + + + | 01/07/ | Office | Cardiac | Randy Figueroa, | | | 2017 | Visit | Rehabilitation | MD [address] | | | | | | [place], | | | | | | [place] [address] | | | | | | [phone] | | | | | | | [...] | | | | | | [place] [address] | | | | | | [phone] | | | | | | | | +--------+ + + + + | 01/14/ | Office | Cardiac | Randy Figueroa, | | | 2017 | Visit | Rehabilitation | MD [address] | | | | | | [place], | | | | | | [place] [address] | | | | | | [phone] | | | | | | | | +--------+ + + + + | 01/21/ | Office | Cardiac | Randy Figueroa, | | | 2017 | Visit | Rehabilitation | MD [address] | | | | | | [place], | | | | | | [place] [address] | | | | | | [phone] | | | | | | | | +--------+ + + + + | 01/28/ | Office | Cardiac | Randy Figueroa, | | | 2017 | Visit | Rehabilitation | MD [address] | | | | | | [place], | | | | | | [place] [address] | | | | | | [phone] | | | | | | | | +--------+ + + + + | 02/04/ | Office | Cardiac | Randy Figueroa, | | | 2017 | Visit | Rehabilitation | MD [address] | | | | | | [place], | | | | | | [place] [address] | | | | | | [phone] | | | | | | | | +--------+ + + + + | 02/11/ | Office | Cardiac | Randy Figueroa, | | | 2017 | Visit | Rehabilitation | MD [address] | | | | | | [place], | | | | | | [place] [address] | | | | | | [phone] | | | | | | | | +--------+ + + + + | 02/18/ | Office | Cardiac | Randy Figueroa, | | 2017 | Visit | Rehabilitation | MD [address] | | | | | | [place], | | | | | | [place] [address] | | | | | | [phone] | | | | | | | | +--------+ + + + + | 02/24/ | Procedure | Physical Medicine | Prosper Esteves | | | 2017 | visit | and Rehabilitation | T, MD [address] | | | | | | [place], [place] | | | | | | [address] | | | | | | | | +--------+ + + + + | 02/25/ | Office | Cardiac | Randy Figueroa, | | | 2017 | Visit | Rehabilitation | MD [address] | | | | | | [place], | | | | | | [place] [address] | | | | | | [phone] | | | | | | | | +--------+ + + + + | 03/04/ | Office | Cardiac | Randy Figueroa, | | | 2017 | Visit | Rehabilitation | MD [address] | | | | | | [place], | | | | | | [place] [address] | | | | | | [phone] | | | | | | | | +--------+ + + + + | 03/11/ | Office | Cardiac | Randy Figueroa, | | | 2017 | Visit | Rehabilitation | [address] | | | | | | [place], | | | | | | [place] [address] | | | | | | [phone] | | | | | | | | +--------+ + + + + as of this encounter Visit Diagnoses Not on filein this encounter"
--- OUTSIDE RECORDS SUMMARY | ~2017-12-16 | XMS | Encounter Summary ---
Demographics + + + | Address | [address] | | | [place] [address] | + + + | Home Phone [...] + + + | Author | [facility] | + + + | Organization | [facility] | + + + | Address | Unknown | + + + | Phone | Unavailable | + + + Support + + + + + | Name | Relationship | Address | Phone | + + + + + | VENICE MCKEON | ECON | [address] | | | | | [place] [address] | | + + + + + Care Team Providers + +------+ + | Care Interventional Cardiologist Name | Role | Phone | + [...] + | 10/16/ | Anesthesia | Cardiac Sales Representative [employer] | Terry Garvin, | | | 2018 | | at [facility] [address] [facility] | [facility] [address] [facility] | | | | | [facility] | [facility] | | | | | [facility] | [place], [place] | | | | | [place], [place] | [address] | | | | | [address] | [phone] | | | | | [phone] | | | +--------+ + + + + Anesthesia Record + + + + + | Procedure Name | Responsible | Anesthesia Start | Anesthesia Stop Time | | | Anesthesiologist | Time | | + + + + + | CAR EP STUDY | Sadnie Garcia MD | 10/16/17 1048 | 10/16/17 [...] | | | (groin access for label designer) | RN | | +--------+ + + [...]
--- OUTSIDE RECORDS SUMMARY | ~2017-12-16 | XMS | Encounter Summary ---
Demographics + + + | Address | [address] | | | [place] [address] | + + + | Home Phone [...] Author | [facility] | | | and [place] | + + + | Organization | [facility] | | | and [place] | + + + | Address | Unknown | + + + | Phone | Unavailable | + + + Support + + + + + | Name | Relationship | Address | Phone | + + + + + | [place] Will | ECON | [address] | | | | | #[place] | | | | | [address] | | + + + + + Care Team Providers + +------+ + | Care Tie In Machine Operator Name | Role | Phone | + +------+ + | Chato Matson MD | PCP | | + +------+ + Encounter Details +--------+ + + + + | Date | Type | Department | Care Team | Description | +--------+ + + + + | 10/05/ | Procedure | [facility] | | | | 2018 | Pass | [facility] | | | | | | [address] | | | | | | [place] | | | | | | [address] | | | | | | [phone] | | | +--------+ + + + [...] | | | | | | [place] [address] | | | | | | [phone] | | | | | | | | +--------+ + + + + | 12/24/ | Office | Cardiac | Randy Figueroa, | | | 2017 | Visit | Rehabilitation | MD [address] | | | | | | [place], | | | | | | [place] [address] | | | | | | [phone] | | | | | | | | +--------+ + + + + | 12/31/ | Office | Cardiac | Randy Figueroa, | | | 2017 | Visit | Rehabilitation | MD [address] | | | | | | [place], | | | | | | [place] [address] | | | | | | [phone] | | | | | | | | +--------+ + + + + | 01/07/ | Office | Cardiac | Randy Figueroa, | | | 2017 | Visit | Rehabilitation | MD [address] | | | | | | [place], | | | | | | [place] [address] | | | | | | [phone] | | | | | | | [...] | | | | | | [place] [address] | | | | | | [phone] | | | | | | | | +--------+ + + + + | 01/14/ | Office | Cardiac | Randy Figueroa, | | | 2017 | Visit | Rehabilitation | MD [address] | | | | | | [place], | | | | | | [place] [address] | | | | | | [phone] | | | | | | | | +--------+ + + + + | 01/21/ | Office | Cardiac | Randy Figueroa, | | | 2017 | Visit | Rehabilitation | MD [address] | | | | | | [place], | | | | | | [place] [address] | | | | | | [phone] | | | | | | | | +--------+ + + + + | 01/28/ | Office | Cardiac | Randy Figueroa, | | | 2017 | Visit | Rehabilitation | MD [address] | | | | | | [place], | | | | | | [place] [address] | | | | | | [phone] | | | | | | | | +--------+ + + + + | 02/04/ | Office | Cardiac | Randy Figueroa, | | | 2017 | Visit | Rehabilitation | MD [address] | | | | | | [place], | | | | | | [place] [address] | | | | | | [phone] | | | | | | | | +--------+ + + + + | 02/11/ | Office | Cardiac | Randy Figueroa, | | | 2017 | Visit | Rehabilitation | MD Jav[address] | | | | | | [place], | | | | | | [place] [address] | | | | | | [phone] | | | | | | | | +--------+ + + + + | 02/18/ | Office | Cardiac | Randy Figueroa, | | | 2017 | Visit | Rehabilitation | MD [address]av[address] | | | | | | [place], | | | | | | [place] [address] | | | | | | [phone] | | | | | | | | +--------+ + + + + | 02/24/ | Procedure | Physical Medicine | Prosper Esteves | | | 2017 | visit | and Rehabilitation | MD [address] | | | | | | [place] | | | | | | [address] | | | | | | | | +--------+ + + + + | 02/25/ | Office | Cardiac | Randy Figueroa, | | | 2017 | Visit | Rehabilitation | MD [address] | | | | | | [place], | | | | | | [place] [address] | | | | | | [phone] | | | | | | | | +--------+ + + + + | 03/04/ | Office | Cardiac | Randy Figueroa, | | | 2017 | Visit | Rehabilitation | MD [address] | | | | | | [place], | | | | | | [place] [address] | | | | | | [phone] | | | | | | | | +--------+ + + + + | 03/11/ | Office | Cardiac | Randy Figueroa, | | | 2017 | Visit | Rehabilitation | MD [address] | | | | | | [place], | | | | | | [place] [address] | | | | | | [phone] | | | | | | | | +--------+ + + + + as of this encounter Visit Diagnoses Not on filein this encounter"
--- OUTSIDE RECORDS SUMMARY | ~2017-12-16 | XMS | Encounter Summary ---
Demographics + + + | Address | [address] | | | [place] [address] | + + + | Home Phone [...] | Author | [facility] | | | and [place] | + + + | Organization | [facility] | | | and [place] | + + + | Address | Unknown | + + + | Phone | Unavailable | + + + Support + + + + + | Name | Relationship | Address | Phone | + + + + + | [place] Will | ECON | [address] | | | | | #[place] | | | | | [address] | | + + + + + Care Team Providers + +------+ + | Care Mural Artist Name | Role | Phone | [...] | | | | | hy | [address] | [address] | | | | | Procedures | [place], | [place] | | | | | [place] | [place] [address] | [place] | | | | | OUTPATIENT | Phone: | [phone] | | | | | CARDIAC | [phone] | Phone: | | | | | REHAB W/O | Fax: | [phone] | | | | | CONT ECG | [phone] | Fax: | | | | | MONITOR | | [phone] | + + + + + + + Encounter Details +--------+ + + + + | Date | Type | Department | Care Team | Description | +--------+ + + + + | 10/19/ | Orders Only | [facility] | Randy Figueroa, | Ischemic | | 2018 | | CARDIOLOGY [address] | MD [address] | cardiomyopathy | | | | [place], | [place], | (Primary Dx) | | | | [place] [address] | [place] [address] | | | | | [phone] | [phone] | | | | | | | [...] [place], | | | | | | [place] [address] | | | | | | [phone] | | | | | | | | +--------+ + + + + | 12/24/ | Office | Cardiac | Randy Figueroa, | | | 2017 | Visit | Rehabilitation | MD [address] | | | | | | [place], | | | | | | [place] [address] | | | | | | [phone] | | | | | | | | +--------+ + + + + | 12/31/ | Office | Cardiac | Randy Figueroa, | | | 2017 | Visit | Rehabilitation | MD [address] | | | | | | [place], | | | | | | [place] [address] | | | | | | [phone] | | | | | | | | +--------+ + + + + | 01/07/ | Office | Cardiac | Randy Figueroa, | | | 2017 | Visit | Rehabilitation | MD Javid Crespo | | | | | | [place], | | | | | | [place] [address] | | | | | | [phone] | | | | | | | [...] [place], | | | | | | [place] [address] | | | | | | [phone] | | | | | | | | +--------+ + + + + | 01/14/ | Office | Cardiac | Randy Figueroa, | | | 2017 | Visit | Rehabilitation | MD Javid Crespo | | | | | | [place], | | | | | | [place] [address] | | | | | | [phone] | | | | | | | | +--------+ + + + + | 01/21/ | Office | Cardiac | Randy Figueroa, | | | 2017 | Visit | Rehabilitation | MD [address] [place] | | | | | | [place], | | | | | | [place] [address] | | | | | | [phone] | | | | | | | | +--------+ + + + + | 01/28/ | Office | Cardiac | Randy Figueroa, | | | 2017 | Visit | Rehabilitation | MD [address] [place] | | | | | | [place], | | | | | | [place] [address] | | | | | | [phone] | | | | | | | | +--------+ + + + + | 02/04/ | Office | Cardiac | Randy Figueroa, | | | 2017 | Visit | Rehabilitation | MD [address] | | | | | | [place], | | | | | | [place] [address] | | | | | | [phone] | | | | | | | | +--------+ + + + + | 02/11/ | Office | Cardiac | Randy Figueroa, | | | 2017 | Visit | Rehabilitation | MD Javid Crespo | | | | | | [place], | | | | | | [place] [address] | | | | | | [phone] | | | | | | | | +--------+ + + + + | 02/18/ | Office | Cardiac | Randy Figueroa, | | | 2017 | Visit | Rehabilitation | MD Javid Crespo | | | | | | [place], | | | | | | [place] [address] | | | | | | [phone] | | | | | | | | +--------+ + + + + | 02/24/ | Procedure | Physical Medicine | Prosper Esteves | | | 2017 | visit | and Rehabilitation | MD [address] | | | | | | [place] | | | | | | [address] | | | | | | | | +--------+ + + + + | 02/25/ | Office | Cardiac | Randy Figueroa, | | | 2017 | Visit | Rehabilitation | MD [address] [place] | | | | | | [place], | | | | | | [place] [address] | | | | | | [phone] | | | | | | | | +--------+ + + + + | 03/04/ | Office | Cardiac | Randy Figueroa, | | | 2017 | Visit | Rehabilitation | MD [address] | | | | | | [place], | | | | | | [place] [address] | | | | | | [phone] | | | | | | | | +--------+ + + + + | 03/11/ | Office | Cardiac | Randy Figueroa, | | | 2017 | Visit | Rehabilitation | MD [address] [place] | | | | | | [place], | | | | | | [place] [address] | | | | | | [phone] | | | | | | | [...]
--- OUTSIDE RECORDS SUMMARY | ~2017-12-16 | XMS | Encounter Summary ---
Demographics + + + | Address | [address] | | | [place] [address] | + + + | Home Phone [...] [facility] | | | and [place] | + + + | Organization | [facility] | | | and [place] | + + + | Address | Unknown | + + + | Phone | Unavailable | + + + Support + + + + + | Name | Relationship | Address | Phone | + + + + + | [place] Will | ECON | [address] | | | | | #[place] | | | | | [address] | | + + + + + Care Team Providers + +------+ + | Care Tobacco Prizer Name | Role | Phone | + +------+ + | Chato Matson MD | PCP | | + +------+ + Reason for Visit + + + | Reason | Comments | + + + | Wound Check | | + + + Encounter Details +--------+ + + + + | Date | Type | Department | Care Team | Description | +--------+ + + + + | 10/26/ | Clinical | [facility] | Carolina Lindarisa, | Tachycardia (Primary | | 2018 | Support | CARDIOLOGY [address] | Dx); Ischemic | | | | [address] [place], | 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) | | | | [phone] | [phone] | [employer] 10/16/17 | | | | | | EULOGIO Darby | +--------+ + + + + Social [...] Last Filed Vital Signs + +---------+ + | Vital Sign | Reading | Time Taken | + +---------+ + | Blood Pressure | 118/70 | 10/26/2017 1507 PST | + +---------+ + | Pulse | 64 | 10/26/20177 PST | + +---------+ + | Temperature | - | - | + +---------+ + | Respiratory Rate | - | - | + +---------+ + | Oxygen Saturation | - | - | + +---------+ + | Inhaled Oxygen | - | - | | Concentration | | | + +---------+ + | Weight | - | - | + +---------+ + | Height | - | - | + +---------+ + | Body Mass Index | - | - | + +---------+ + in this encounter Progress Notes Suzanne Cheng RN - 10/26/2017 1300 PSTPatient is seen today two week status post BIV ICD implant. The wound is well approximated with no redness, no bruising and moderate swel ling. Has steri strips in place. Patient denies: fever, palpitations, chest pain, surgical pain, dizziness, lightheadedness, shortness of breath. Patient is reminded of precautions including not raising left arm above 90 degrees, not lif ting more than 10 pounds for 3 weeks. Patient was instructed encouraged to walk. Patient an d his had no questions. Patient is feeling well and continue to improve since the proce dure ...........................................SUZANNE CHENG RN on 10/26/17 at 15:16 in this encounter Plan of Treatment +--------+ [...] | | | | | | [place] [address] | | | | | | [phone] | | | | | | | | +--------+ + + + + | 12/24/ | Office | Cardiac | Randy Figueroa, | | | 2017 | Visit | Rehabilitation | MD Javid Crespo | | | | | | [place], | | | | | | [place] [address] | | | | | | [phone] | | | | | | | | +--------+ + + + + | 12/31/ | Office | Cardiac | Randy Figueroa, | | 2017 | Visit | Rehabilitation | MD [address] | | | | | | [place], | | | | | | [place] [address] | | | | | | [phone] | | | | | | | | +--------+ + + + + | 01/07/ | Office | Cardiac | Randy Figueroa, | | | 2017 | Visit | Rehabilitation | MD Javid Crespo | | | | | | [place], | | | | | | [place] [address] | | | | | | [phone] | | | | | | | [...] | | | | | | [place] [address] | | | | | | [phone] | | | | | | | | +--------+ + + + + | 01/14/ | Office | Cardiac | Randy Figueroa, | | | 2017 | Visit | Rehabilitation | MD Javid Crespo | | | | | | [place], | | | | | | [place] [address] | | | | | | [phone] | | | | | | | | +--------+ + + + + | 01/21/ | Office | Cardiac | Randy Figueroa, | | | 2017 | Visit | Rehabilitation | MD [address] | | | | | | [place], | | | | | | [place] [address] | | | | | | [phone] | | | | | | | | +--------+ + + + + | 01/28/ | Office | Cardiac | Randy Figueroa, | | | 2017 | Visit | Rehabilitation | MD [address] | | | | | | [place], | | | | | | [place] [address] | | | | | | [phone] | | | | | | | | +--------+ + + + + | 02/04/ | Office | Cardiac | Randy Figueroa, | | | 2017 | Visit | Rehabilitation | MD [address] | | | | | | [place], | | | | | | [place] [address] | | | | | | [phone] | | | | | | | | +--------+ + + + + | 02/11/ | Office | Cardiac | Randy Figueroa, | | | 2017 | Visit | Rehabilitation | MD Javid Crespo | | | | | | [place], | | | | | | [place] [address] | | | | | | [phone] | | | | | | | | +--------+ + + + + | 02/18/ | Office | Cardiac | Randy Figueroa, | | | 2017 | Visit | Rehabilitation | MD Javid Crespo | | | | | | [place], | | | | | | [place] [address] | | | | | | [phone] | | | | | | | | +--------+ + + + + | 02/24/ | Procedure | Physical Medicine | Prosper Esteves | | | 2017 | visit | and Rehabilitation | MD [address] | | | | | | [place] | | | | | | [address] | | | | | | | | +--------+ + + + + | 02/25/ | Office | Cardiac | Randy Figueroa, | | | 2017 | Visit | Rehabilitation | MD [address] | | | | | | [place], | | | | | | [place] [address] | | | | | | [phone] | | | | | | | | +--------+ + + + + | 03/04/ | Office | Cardiac | Randy Figueroa, | | | 2017 | Visit | Rehabilitation | MD [address] | | | | | | [place], | | | | | | [place] [address] | | | | | | [phone] | | | | | | | | +--------+ + + + + | 03/11/ | Office | Cardiac | Randy Figueroa, | | 2017 | Visit | Rehabilitation | MD [address] | | | | | | 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
--- OUTSIDE RECORDS SUMMARY | ~2017-12-16 | XMS | Encounter Summary ---
Demographics + + + | Address | [address] | | | [place] [address] | + + + | Home Phone [...] Author | [facility] | | | and [place] | + + + | Organization | [facility] | | | and [place] | + + + | Address | Unknown | + + + | Phone | Unavailable | + + + Support + + + + + | Name | Relationship | Address | Phone | + + + + + | [place] Will | ECON | [address] | | | | | #[place] | | | | | [address] | | + + + + + Care Team Providers + +------+ + | Care Vice President Financial Name | Role | Phone | + [...] | | | | | Ischemic | [place], | [address] | | | | | cardiomyopat | [address] | [place], | | | | | hy | [address] | [place] | | | | | Procedures | [place] | [address] | | | | | ECHO | [place], | Phone: | | | | | Complete [place] | [place] | [phone] | | | | | ECHO HEART | [address] | Fax: | | | | | [place] | Phone: | [phone] | | | | | [address] | [phone] | | | | | | [place] | Fax: | | | | | | ECHO HEART | [phone] | | | | | | [place] [...] | | | | | Ischemic | [place], | [address] | | | | | cardiomyopat | [address] | [place], | | | | | hy | [address] | [place] | | | | | Procedures | [place] | [address] | | | | | ECHO | [place], | Phone: | | | | | Complete [place] | [place] | [phone] | | | | | ECHO HEART | [address] | Fax: | | | | | [place] | Phone: | [phone] | | | | | [address] | [phone] | | | | | | [place] | Fax: | | | | | | ECHO HEART | [phone] | | | | | | [place] [...] + + | 11/24/ | Hospital | [facility] | [place], | Ischemic | | 2018 | Encounter | MED CTR ECHO [address] | [address] | cardiomyopathy | | | | [place] | [place], | | | | | [place] [address] | [place] [address] | | | | | [phone] | [phone] | | | | | | | [...] | | | | | (VITAMIN D-3) [address] | a week. | | | | [...] | | | | | | [place] [address] | | | | | | [phone] | | | | | | | | +--------+ + + + + | 12/24/ | Office | Cardiac | Lauren Figueroa, | | | 2017 | Visit | Rehabilitation | MD [address] [place] | | | | | | [place], | | | | | | [place] [address] | | | | | | [phone] | | | | | | | | +--------+ + + + + | 12/31/ | Office | Cardiac | Lauren Figueroa, | | | 2017 | Visit | Rehabilitation | MD [address] | | | | | | [place], | | | | | | [place] [address] | | | | | | [phone] | | | | | | | | +--------+ + + + + | 01/07/ | Office | Cardiac | Lauren Figueroa, | | | 2017 | Visit | Rehabilitation | MD [address] [place] | | | | | | [place], | | | | | | [place] [address] | | | | | | [phone] | | | | | | | | +--------+ + + + + | 01/13/ | Clinical | Cardiology | | | | 2017 | Support | | | | +--------+ + + + + | 01/13/ | Office | Cardiology | Jenny, | | | 2017 | Visit | | [address] | | | | | | [place], | | | | | | [place] [address] | | | | | | [phone] | | | | | | | | +--------+ + + + + | 01/14/ | Office | Cardiac | Lauren Figueroa, | | | 2017 | Visit | Rehabilitation | MD Javid Crespo | | | | | | [place], | | | | | | [place] [address] | | | | | | [phone] | | | | | | | | +--------+ + + + + | 01/21/ | Office | Cardiac | Lauren Figueroa, | | | 2017 | Visit | Rehabilitation | MD Javid Crespo | | | | | | [place], | | | | | | [place] [address] | | | | | | [phone] | | | | | | | | +--------+ + + + + | 01/28/ | Office | Cardiac | Lauren Figueroa, | | | 2017 | Visit | Rehabilitation | MD [address] | | | | | | [place], | | | | | | [place] [address] | | | | | | [phone] | | | | | | | | +--------+ + + + + | 02/04/ | Office | Cardiac | Lauren Figueroa, | | | 2017 | Visit | Rehabilitation | MD [address] [place] | | | | | | [place], | | | | | | [place] [address] | | | | | | [phone] | | | | | | | | +--------+ + + + + | 02/11/ | Office | Cardiac | Lauren Figueroa, | | | 2017 | Visit | Rehabilitation | MD [address] [place] | | | | | | [place], | | | | | | [place] [address] | | | | | | [phone] | | | | | | | | +--------+ + + + + | 02/18/ | Office | Cardiac | Lauren Figueroa, | | | 2017 | Visit | Rehabilitation | MD Javid Crespo | | | | | | [place], | | | | | | [place] [address] | | | | | | [phone] | | | | | | | | +--------+ + + + + | 02/24/ | Procedure | Physical Medicine | Prosper Esteves | | | 2017 | visit | and Rehabilitation | MD [address] | | | | | | [place] | | | | | | [address] | | | | | | | | +--------+ + + + + | 02/25/ | Office | Cardiac | Lauren Figueroa, | | | 2017 | Visit | Rehabilitation | MD Javid Crespo | | | | | | [place], | | | | | | [place] [address] | | | | | | [phone] | | | | | | | | +--------+ + + + + | 03/04/ | Office | Cardiac | Lauren Figueroa, | | | 2017 | Visit | Rehabilitation | MD [address] [place] | | | | | | [place], | | | | | | [place] [address] | | | | | | [phone] | | | | | | | | +--------+ + + + + | 03/11/ | Office | Cardiac | Lauren Figueroa, | | | 2017 | Visit | Rehabilitation | MD [address] | | | | | | [place], | | | | | | [place] [address] | | | | | | [phone] | | | | | | | | +--------+ + + + + as of this encounter Results ECHO Complete (11/24/2017 1404) + +-------+ + | Component | Value | Ref Range | + +-------+ + | LVEF-TTE | 35 | | | TRANSTHORACIC ECHO | | | + +-------+ + + + | Narrative | + + | Transthoracic Echocardiography Report (TTE) Demographics Patient Name | | MIKE LAND O'LAKES Room Number J Patient Number | | [id number] Date of Study 11/24/2017 Visit Number | | [id number] Referring Physician | | THERESE SY Number Date of 1955 | | [employer] TUCKER DOVE Age 62 | | year(s) Interpreting LAUREN FIGUEROA MD | | Mass Spec | | Gender Male 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 Link Trainer Operator | | Procedure Type of Study TTE [...] Vol/BSA Index: 43 mL/m^2 EF | | Dbirackfc46% Left Ventricle Diastolic Dimension: 4.9 cm Septum Diastolic: | | 1.6 cm PW Diastolic: 1.4 cm Miscellaneous Aorta Aortic Root: 3.7 cm | | Ascending Aorta: 3.6 cm | + + + + | Procedure Note | + + | Clayton Cortes Results In 11/25/2017 0721 [facility] Transthoracic Echocardiography Report (TTE) | | | | Demographics | | | | Patient Name MIKE VELASQUEZ Room Number | | J | | | | Patient Number [id number] Date of Study 11/24/2017 | | | | Visit Number [id number] | | | | Referring Physician THERESE SY | | Number | | | | Date of 1955 [employer]worker TUCKER DOVE | | | | Age 62 year(s) Interpreting LAUREN FIGUEROA MD | | Mass Spec | | | | Gender Male Nurse | | | | Stress Link Trainer Operator | | | | Procedure | | [...] LAUREN FIGUEROA MD(Interpreting physician) on | | 11/25/2017 [...] | LA Vol/BSA Index: 43 mL/m^2 EF Wdoynunzz83% | | | | Left Ventricle | | | | Diastolic Dimension: 4.9 cm | | Septum Diastolic: 1.6 cm | | PW Diastolic: 1.4 cm | | | | Miscellaneous | | | | Aorta | | | | Aortic Root: 3.7 cm | | Ascending Aorta: 3.6 cm | + + in this encounter Visit Diagnoses + + | Diagnosis | + + | Ischemic cardiomyopathy | + + | Other specified forms of chronic ischemic heart disease | + +"
--- OUTSIDE RECORDS SUMMARY | ~2017-12-16 | XMS | Encounter Summary ---
Demographics + + + | Address | [address] | | | [place] [address] | + + + | Home Phone | | + + + | Preferred Language | Unknown | + + + | Marital Status | | + + + | Gnosticism Affiliation | NRP | + + + | Race | White | + + + | Ethnic Group | Not or | + + + Author + + + | Author | [facility] | + + + | Organization | [facility] | + + + | Address | Unknown | + + + | Phone | Unavailable | + + + Support + + + + + | Name | Relationship | Address | Phone | + + + + + | ANNA MCKEON | ECON | [address] | | | | | [place] [address] | | + + + + + Care Team Providers + +------+ + | Care Nursing Specialist Name | Role | Phone | [...] | | | | | (HCC) | [place], [place] | for Health | | | | | Stenosis of | [phone] | and Healing | | | | | coronary | Phone: | [place], [place] | | | | | artery | [phone] | [address] | | | | | stent, | Fax: | Phone: | | | | | initial | [phone] | [phone] | | | | | encounter | | Fax: | | | | | Procedures | | [phone] | | | | | CONSULT TO [...] + + | 10/10/ | Hospital | [address] | Khurram Bedoya | | | 2018 - | Encounter | [address] | MD [address] | | | | | [address] [place] [address] | [address] | | | 10/17/ | | [place], [place] | [place], [place] | | | 2018 | | [address] | [address] | | | | | [phone] | [phone] | | | | | | | [...] Referring Physician & Institution: Other D[facility]ation Primary/Outpatient Extension Service Specialist: Dr Jamal Guerrero MD Inpatient Attending Physician: Khurram Bedoya MD Author/Discharging Provider: LALA SCHOFIELD PA-C Admission Date: 10/10/2017 Discharge Date: 10/17/2017 Active Hospital Problems 1) *NSTEMI (non-ST elevated myocardial infarction) (HCC) 2) Coronary 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 3) Stenosis of coronary artery stent 4) Ischemic cardiomyopathy 5) Chronic systolic congestive heart failure (HCC) 7) Encounter for insertion of cardiac resynchronization therapy defibrillator (EDITOR-D) 8) Paroxysmal atrial flutter (HCC) 9) Influenza, [...] 1) EP study with VT induction 2) EDITOR-D implantation Reason For Admission: Consideration of complex PCI vs CABG for in-stent restenosis of LCx and LM/LAD stents Hospital Course: Please see H&P for hospital course at [facility] prior to transfer to [facility]. Ron Mckeon is a 61 year [...] treatment who was admitted in transfer from [facility] on 10/11 for consideration of PCI vs [...] support--had one 3.0 x [address] ug-eluting stent placed in ostial L [...] 10/16. VT was induced, therefor e a EDITOR-D was implanted. He is discharging home in good condition with follow up in 1 week w ith his Extension Service Specialist. The following problems were addressed this [...] uenza and underwent a coronary angiogram at [facility] which revealed in stent re-stenosis of both LM into LAD and LCx stents, mild disease of RCA. Transferred to [facility] for further onel luation. CTS was consulted for consideration of CABG vs complex PCI. Due to nonviable myocardium archie wn on cardiac PET and resting NM perfusion study, PCI was chosen over CABG. On 10/15 he underw ent angiography/PCI with impella support--had one 3.0 x 18 mm Resolute Wyarno drug-eluting chery nt placed in ostial L [...] II, Stage C. Etiology ischemic. TTE at [facility] showed EF 30-35%, mildly reduced RV [...] the past --ICD: placed by EP 10/16, EDITOR-D -- will need 1 week f/u for wound check, then 1 month device check with EP -- f/u with outpatient pattern technician 2-4 weeks # Paroxysmal Aflutter Noted Aflutter with RVR at admission in [place]; treated with amiodarone infusion. He w as transitioned to oral amiodarone and maintained normal rhythm. Given that the aflutter occ urred in setting of severe sepsis, will not continue amiodarone or warfarin. If he has recur rent arrhythmia, this will be noted on EDITOR-D and could consider anticoagulation at that time . However, he requires DAPT and has a possible history of recent GIB, so triple therapy shou ld be avoided if not necessary --rate control: metoprolol as above --anticoagulation: holding warfarin for now given DAPT and h/o GI B. Discuss further with outpatient pattern technician. May consider holding anticoagulation unless he demonstrates recurrent arrhythmia # Influenza type A - resolved # Community acquired pneumonia # Severe sepsis with shock, resolved Pt presented to [facility] 10/03 found to be Flu Apositive with [...] sepsis management , fluid resuscitation. EGD at [facility] on 10/05 showed gastritis, duodenitis, linear ulcerations [...] first post-hospitalization visit: 1. Wound check from EDITOR-D placement 2. Consider restarting lisinopril if BPs improve and Cr is stable 3. Instructed pt to restart metformin on 08/18 but reevaluate based on Cr Schedule the following appointment(s) when you get home KULWINDER Stevens. Go on 10/19/2017. Why: at 1:15pm for heart failure follow up, to re-check labwork, and to have your wound ch ecked Contact information HEART [address] [address] KULWINDER Stevens. Go on 11/11/2017. Why: at 9:30am for cardiology follow up and to have your device checked Contact information HEART [address] [address] Medication List START taking these medications Childrens [...] Resume on 10/19. Indications: type 2 diabetes [facility] metoprolol succinate 25 mg Tb24 Commonly known [...] 0%. 8.Stent: 3.0 x 18 mm Resolute Wyarno drug-eluting stent. Lesion #2: 1.Lesion location: Distal [...] circumflex. One 3.0 x 18 mm Resolute Wyarno drug-eluting stent. Successful percutaneous coronary transluminal angiop [...] ths. You should be cleared by your pattern technician prior to returning to driving. If you [...] How to Contact us: Cardiology Division Office [phone] Cardiology Patient Phone Line EDUIN [address] Dr[address] Dr., Dr., PA-C Connie Barber, NP Karen Paladino, RN Margaret Kleist, RN Evenings or weekends: Ask for on-call pattern technician Drug Eluting Stent 1. Please take Plavix (clopidogrel) everyday which helps to keep the stent open. You need t o take it every day for one year and do not stop unless you are told to by your pattern technician . 2. Take an aspirin 81 mg once daily indefinitely. 3. You were referred for cardiac rehab and should start now that you have had a stent place d. 4. Follow up with your pattern technician within 2-4 weeks. 5. No elective surgeries [...] smoker.Patient counseled on importance of smoking cessation [facility] Last vitals: BP: 101/65 (10/17/17 1144) Pulse: 80 (10/17/17 1144) Resp: 18 ( 1144) Weight: 88.4 kg (194 lb 14.2 oz) (10/17/17 0221) Discharging Provider: LALA SCHOFIELD PA-C, Cardiovascular Medicine Attending Physician: Khurram Bedoya MD, Cardiovascular Medicine Lala Schofield PA-C Instructor of Cardiovascular Medicine [facility] [place] [facility] [place] I spent 36 minutes in coordination of care and fmzb-ww-klnw with the patient and/or their s urrogate in which the problems above were discussed Associated attestation - Khurram Bedoya MD - 10/17/2017 3:22 PM PSTCardiology [facility] I have seen and examined Mr. Mckeon and discussed the patient's management with the [facility]. I reviewed the practitioner's note above and agree with the documented f indings and plan of care. KHURRAM BEDOYA MD Director of the [facility] Hypertrophic Cardiomyopathy Carton Making Machine Operator of Echocardiography Renal Medicine Specialisthousing inspector Division of Cardiovascular Medicine in this encounter Discharge Instructions The following attachments cannot be sent through Care Everywhere.WOUND CHECK (PANAMANIAN)ICD ( IMPLANTABLE CARDIOVERTER-DEFIBRILLATOR): POST-OP (PANAMANIAN)PAIN POST-SURGERY: ACUTE (PANAMANIAN) OPIOIDS: SAFE USE (PANAMANIAN)OPIOIDS: STORAGE AND DISPOSAL: GENERAL INFO (PANAMANIAN)in this enco unter Medications at Time of [...] Information: Implant date: 10/16/17 BiV-ICD pulse generator: System Software Programmer: [employer] Model number: [id number] Serial number: [id number] RA lead: System Software Programmer: Medtronic Model number: 5076-52 Serial number: [id number] RV lead: System Software Programmer: [employer]onic Model number: [id number] Serial number: [id number] CS lead: System Software Programmer: [employer]tronic Model number: [id number] Serial number: [id number] ICD PROGRAMMING: Bradycardia Parameters: Mode: DDD Lower rate limit: 50 Upper rate limit: 130 Output (A): 3.5 V at 0.4 ms Sensitivity (A): 0.3 mV Output (RV): 3.5 V at 0.4 ms Sensitivity (RV): 0.3 mV Output (CS): 2.0 V at 0.4ms Tachycardia Parameters: VT zone: 177-200 Therapies: Monitor VF zone: >200 bpm Therapies: 35 J x 6 PACING PERCENTAGE: AP: <0.1% MANAGER REGISTRATION: 98.3% EPISODES SINCE IMPLANT: none. TODAY'S TESTING [...] symmetric air entry throughou t both lung chawdick. Heart: regular. No murmurs, rubs or gallops [...] and Device check in one month at [facility] device clinic. I have reque sted [...] MD Electrophysiology Fellow Division of Cardiovascular Medicine [facility] Pager [phone] Associated attestation - Lauro Jorgensen MD - 10/18/2017 12:04 PM PSTElectrophysiolog y Attending I have seen and examined Mr. Mckeon and discussed the patient's management with the resi dent and/or fellow. I reviewed the housestaff note above and agree with the documented find ings and plan of care. He is doing well. For regular device follow up. Lauro Jorgensen M.D. Director, Electrophysiology Admissions Assistantstaff development coordinator rn [facility] [place] [phone] Amarilis Castle MD - 10/17/2017 10:53 AM [...] hs. You should be cleared by your pattern technician prior to returning to driving. ? If [...] through the full body scanner at [facility] or, but only after 6 weeks post [...] How to Contact us: Cardiology Division Office [phone] Cardiology Patient Phone Line EDUIN [address] [...] 1) EP study with VT induction 2) EDITOR-D Indication for the procedure: Ischemic cardiomyopathy with [...] MD Electrophysiology Fellow Division of Cardiovascular Medicine [facility] Pager [phone] Lala Schofield PA-C - 10/16/2017 2:07 PM PSTFormatting of this note may be different fro m the original. IP Cardiology Progress Note Date: 10/16/2017 Hospital Day: 6 Attending Extension Service Specialist: Khurram Bedoya MD Provider: LALA SCHOFIELD PA-C Primary Care Provider: Chato Matson MD Outpatient Extension Service Specialist: Dr Jamal Guerrero MD ID:Ron Mckeon [...] treatment who was admitted in transfer from [place] on 10/11 for consideration of PCI vs [...] cannot appreciate murmur and sounds regular. J MANAGER REGISTRATION not above clavicle at 90 degrees Gastrointestinal: [...] found for: FREET4, TSH, TPOAB, THYROGLOB, THYROGLOBAB, [id number] Lab Results Component Value Date A1C 5.9 [...] 8. Stent: 3.0 x 18 mm Resolute Wyarno drug-eluting stent. Lesion #2: 1. Lesion location: [...] uenza and underwent a coronary angiogram at [facility] which revealed in stent re-stenosis of both LM into LAD and LCx stents, mild disease of RCA. Transferred to [facility] for further onel luation. CTS was consulted for consideration of CABG vs complex PCI. Due to nonviable myocardium archie wn on cardiac PET and resting NM perfusion study, PCI was chosen over CABG. On 10/15 he underw ent angiography/PCI with impella support--had one 3.0 x 18 mm Resolute Wyarno drug-eluting chery nt placed in ostial L [...] II-III, Stage C. Etiology ischemic. TTE at [facility] showed EF 30-35%, mildly reduced RV [...] aced. --preload: holding diuresis --afterload: holding lisinopril (YALIN, PCI contrast load, can initiate tomorrow ) --contractility: carvedilol as above --aldosterone antagonist: pt unable to tolerate spironolactone due to hyperkal emia in the past --ICD: placed today by EP -- will need 1 week f/u with PCP for wound check, then 1 month device check with EP -- f/u with outpatient pattern technician 2-4 weeks # Paroxysmal Aflutter Noted Aflutter with RVR at admission in [facility]; treated with amiodarone infusion. Now maintaining SR on oral amio. CHADS-VASC 3, HAS-BLED 3. Was previously on heparin infusion fo r NSTEMI but this has been stopped and AC was not started in anticipation of PCI. --rate control: carvedilol as above --rhythm control: continue amiodarone 200 mg daily for now, to be reassessed b y outpatient pattern technician --anticoagulation: holding warfarin for now given DAPT and h/o GIB. Discuss fu rther with outpatient pattern technician. May consider holding anticoagulation unless he demonstra janeth recurrent arrhythmia # Influenza type A - resolved # Community acquired pneumonia # Severe sepsis with shock, resolved Pt presented to [facility] 10/03 found to be Flu A positive [...] sepsis management , fluid resuscitation. EGD at [facility] on 10/05 showed gastritis, duodenitis, linear ulcerations [...] patient was interviewed and examined by attending pattern technician, Dr. Khurram Bedoya MD , who is in agreement with above described findings, assessment and plan. LALA SCHOFIELD PA-C Cardiovascular Medicine [facility] Pager [phone] I spent 36 minutes in coordination of care and djki-ng-sehc with the patient and/or their surrogate in [...] Continue current post-cath car tom SUERO MD [facility] [address] [place] [id number] RuthA nn Carvajal PA-C - 10/15/2017 3:36 PM PSTFormatting [...] circumflex. One 3.0 x 18 mm Resolute Wyarno drug-eluting stent. Successful percutaneous coronary transluminal angiopla [...] Tx with IV amiodarone @ OSH), recent JVAON thro mbus in 02/2017 (warfarindiscontinued after repeat [...] circ and LAD. EPS v-stim with possible EDITOR-D tomorrow (QRS today is 152 atypical LB BB). See yesterdays attestation Sophie Darby MD Cardiovascular Medicine - Electrophysiology [facility] [place] at [facility] Arya Low MD - 10/15/2017 1:05 PM PSTCARDIOLOGY PRELIMINARY PROCEDURE NOTE Primary Care Provider: Chato Matson MD Referring Provider: Other Dictation Sport Psychologist Staff: Tejal Modi M.D. Procedure(s): 1. Coronary angiography 2. Percutaneous coronary intervention 3. Left heart catheterization 4. Impella placement and removal 5. Moderate conscious sedation Indications: Unstable angina, planned LM intervention Access: 14-Lithuanian RFA 6-Lithuanian RFV 7-Lithuanian LFA Post Procedure Access: No evidence of [...] Note Date: 10/15/2017 Hospital Day: 5 Attending Extension Service Specialist: Khurram Bedoya MD Provider: LALA SCHOFIELD PA-C Primary Care Provider: Chato Matson MD Outpatient Extension Service Specialist: Dr Jamal Guerrero MD ID:Ron Mckeon [...] treatment who was admitted in transfer from [facility] on 10/11 for consideration of PCI vs [...] cannot appreciate murmur and sounds regular. J MANAGER REGISTRATION not above clavicle at 90 degrees Gastrointestinal: [...] found for: FREET4, TSH, TPOAB, THYROGLOB, THYROGLOBAB, [id number] Lab Results Component Value Date A1C 5.9 [...] uenza and underwent a coronary angiogram at [facility] which revealed in stent re-stenosis of both LM into LAD and LCx stents, mild disease of RCA. Transferred to [facility] for further onel luation. CTS was consulted for consideration of CABG vs complex PCI. Due to nonviable myocardium archie wn on cardiac PET and resting NM perfusion study, he will proceed with PCI tomorrow with Imp tania support. -- to laborer cook house today for PCI with impella support --ASA [...] II-III, Stage C. Etiology ischemic. TTE at [facility] showed EF 30-35%, mildly reduced RV [...] Noted Aflutter with RVR at admission in [facility]; treated with amiodarone infusion. Now maintaining SR [...] sepsis with shock, resolved Pt presented to [facility] 10/03 found to be Flu A positive [...] sepsis management , fluid resuscitation. EGD at [facility] on 10/05 showed gastritis, duodenitis, linear ulcerations [...] patient was interviewed and examined by attending pattern technician, Dr. Khurram Bedoya MD , who is in agreement with above described findings, assessment and plan. LALA SCHOFIELD PA-C Cardiovascular Medicine [facility] Pager [phone] I spent 38 minutes in coordination of care and qqhv-tx-azee with the patient and/or their surrogate in which the following was discussed: plan for PCI with impella support today, hea rt failure, anticoagulation for aflutter, discharge planning Associated attestation - Khurram Bedoya MD - 10/15/2017 1:15 PM PSTCardiology Attendi I have seen and examined Mr. Mckeon and discussed the patient's management with the [facility]. I reviewed the practitioner's note above and agree with the documented f indings and plan of care. KHURRAM BEDOYA MD Director of the [facility] Hypertrophic Cardiomyopathy Carton Making Machine Operator of Echocardiography Renal Medicine Specialisthousing inspector Division of Cardiovascular Medicine Ruth Ann Carvajal [...] thickening is segmentally abnormal. 10/03/17: TTE @ [facility] Summary The number of aortic valve leaflets [...] remain. CARDIAC CATHETERIZATION: DATE OF PROCEDURE:10/03/17 @ [facility] CORONARY ANGIOGRAPHY DOMINANCE: Right LEFT MAIN ARTERY: [...] gorized as high risk. Assessment and Plan: Rno Mckeon is a 61 y.o. 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 Given NSVT and EF 30-35%, we will therefore proceed to an EP study with implantation o f an ICD if she has inducible VT. Given atypical LBBB QRS 147 and current functional status 3 (prior 1-2 by report) and concern for lack of EF recovery, we would plan for EDITOR with His- bundle lead if needed. Sophie Darby MD Cardiovascular Medicine - Electrophysiology [facility] Cardiovascular [place] at [facility] Lala Schofield PA-C - 10/14/2017 11:58 AM PSTFormatting of this note may be different fro m the original. IP Cardiology Progress Note Date: 10/14/2017 Hospital Day: 4 Attending Extension Service Specialist: Khurram Bedoya MD Provider: LALA SCHOFIELD PA-C Primary Care Provider: Chato Matson MD Outpatient Extension Service Specialist: Dr Jamal Guerrero MD ID:Ron Mckeon [...] treatment who was admitted in transfer from [place] on 10/11 for consideration of PCI vs [...] Very t hankful of care provided at [facility] Current Inpatient Medications: acetaminophen (TYLENOL) tablet [...] found for: FREET4, TSH, TPOAB, THYROGLOB, THYROGLOBAB, [id number] Lab Results Component Value Date A1C 5.9 [...] uenza and underwent a coronary angiogram at [facility] which revealed in stent re-stenosis of both LM into LAD and LCx stents, mild disease of RCA. Transferred to [facility] for further onel luation. CTS was [...] II-III, Stage C. Etiology ischemic. TTE at [facility] showed EF 30-35%, mildly reduced RV [...] Noted Aflutter with RVR at admission in [place]; treated with amiodarone infusion. Now maintaining SR [...] sepsis with shock, resolved Pt presented to [facility] 10/03 found to be Flu A positive [...] sepsis management , fluid resuscitation. EGD at [facility] on 10/05 showed gastritis, duodenitis, linear ulcerations [...] patient was interviewed and examined by attending pattern technician, Dr. Khurram Bedoya MD , who is in agreement with above described findings, assessment and plan. LALA SCHOFIELD PA-C Cardiovascular Medicine [facility] Pager [phone] I spent 42 minutes in coordination of care and lvbf-qx-yqvy with the patient and/or their s urrogate in which the following was discussed: results of nuc med and PET scan studies indic ating no viable myocardium and thus will plan for complex PCI tomorrow Associated attestation - Khurram Bdeoya MD - 10/14/2017 9:29 PM PSTCardiology Attendi I have seen and examined Mr. Mckeon and discussed the patient's management with the [facility]. I reviewed the practitioner's note above and agree with the documented f indings and plan of care. KHURRAM BEDOYA MD Director of the [facility] Hypertrophic Cardiomyopathy Carton Making Machine Operator of Echocardiography Renal Medicine Specialisthousing inspector Division of Cardiovascular Medicine Ashleigh Alvarez ACNP - 10/13/2017 8:33 AM PSTFormatting of this note may be differ ent from the original. Cardiology Inpatient Progress Note Date: 10/13/2017 Hospital Day: 3 Primary Care Physician: Chato Matson MD Outpatient Extension Service Specialist: Dr Jamal Guerrero MD Attending Extension Service Specialist: Khurram Bedoya MD Provider: Ashleigh Alvarez [facility] ID: Ron Mckeon is a 61 [...] who was admitted in transfe r from [place] on 10/11 for consideration of PCI vs [...] found for: FREET4, TSH, TPOAB, THYROGLOB, THYROGLOBAB, [id number] Lab Results Component Value Date A1C 5.9 [...] exam dated, 03/30/2017, the LVEF is similar. [facility] CXR 10/11/17: FINDINGS: The increased lung [...] of the duodenum. - No specimens collected. [facility] and selective coronary angiography 10/04/17 summary (full report in CareEverywhere): 1.Systemic hypotension, upper normal left ventricular end-diastolic pressure 2.Severe in-stent stenosis of left main to ostial LAD stent 3.Severe in-stent stenosis ostial proximal left circumflex stent 4.Mild to moderate RCA disease 5.ANNA grade 1 flow to distal LAD 10/03/17 Echo at [facility]: The number of aortic valve leaflets cannot [...] stents # NSTEMI Pt was admitted to [facility] 10/03 with hypoxemic respiratory failure, severe sepsis and s hock thought to be due to influenza type A as below. Noted to have new LBBB, NSTEMI with pea k trop 26. Underwent coronary angiogram at [facility] 10/04 which revealed in stent re-steno sis of both LM into LAD and LCx stents, mild disease of RCA. Transferred to [facility] for further evaluation. TTE showed LV [...] II-III, Stage C. Etiology ischemic. TTE at [facility] showed EF 30-35%, mildly reduced RV function, mild dilation of ascending aorta. LVEDP 14 mm hg during catheterization 10/04 ( in setting of hypotension). Pt was diuresed at [facility], appears euvolemic on exam. Pt wa s [...] Noted Aflutter with RVR at admission in [facility], treated with amiodarone infusion, main taining SR [...] admitted with acute dyspnea, respiratory failure to [facility] 10/03 found to be Flu A p [...] sepsis management , fluid resuscitation. EGD at [facility] on 10/05 showed gastritis, duodenitis, linear ulcerations [...] patient was interviewed and examined by attending pattern technician, Dr. Khurram Bedoya MD , who is in agreement with above described findings, assessment and plan. KULWINDER Grace Instructor of Medicine [facility] [place] Pager [phone] I spent 33 minutes in coordination of care and hwaf-at-rcju with the patient and/or their s urrogate in which management of CAD, imaging plan and consultation with radiology, revascula rization treatment was discussed Associated attestation - Khurram Bedoya MD - 10/13/2017 2:48 PM PSTCardiology Attendi ng I have seen and examined Mr. Mckeon and discussed the [facility]. I reviewed the practitioner's note above and agree with the documented f indings and plan of care. KHURRAM BEDOYA MD Director of the [facility] Hypertrophic Cardiomyopathy Carton Making Machine Operator of Echocardiography Renal Medicine Specialisthousing inspector Division of Cardiovascular Medicine Ashleigh Alvarez ACNP - 10/12/2017 8:02 AM PSTFormatting of this note may be differ ent from the original. Cardiology Inpatient Progress Note Date: 10/12/2017 Hospital Day: 2 Primary Care Physician: Chato Matson MD Outpatient Extension Service Specialist: Dr Jamal Guerrero MD Attending Extension Service Specialist: Khurram Bedoya MD Provider: KULWINDER Grace [...] who was admitted in transfe r from [facility] on 10/11 for consideration of PCI vs [...] found for: FREET4, TSH, TPOAB, THYROGLOB, THYROGLOBAB, V3LJKIB Lab Results Component Value Date A1C 5.6 [...] exam dated, 03/30/2017, the LVEF is similar. [facility] CXR 10/11/17: FINDINGS: The increased lung [...] flow to distal LAD 10/03/17 Echo at [facility]: The number of aortic valve leaflets cannot [...] stents # NSTEMI Pt was admitted to [facility] 10/03 with hypoxemic respiratory failure, severe sepsis and s hock thought to be due to influenza type A as below. Noted to have new LBBB, NSTEMI with pea k trop 26. Underwent coronary angiogram at [facility] 10/04 which revealed in stent re-steno sis of both LM into LAD and LCx stents, mild disease of RCA. Transferred to [facility] for further evaluation. TTE shows LV [...] II-III, Stage C. Etiology ischemic. TTE at [facility] showed EF 30-35%, mildly reduced RV function, mild dilation of ascending aorta. LVEDP 14 mm hg during catheterization 10/04 ( in setting of hypotension). He was diuresed at [facility], appears euvolemic on exam today. Pt was [...] Aflutter with RVR prior to admission in [facility], treated with amioda rima infusion, maintaining SR [...] admitted with acute dyspnea, respiratory failure to [facility] 10/03 found to be Flu pos itive. [...] sepsis management , fluid resuscitation. EGD at [facility] on 10/05 showed gastritis, duodenitis, linear ulcerations [...] patient was interviewed and examined by attending pattern technician, Dr. Khurram Bedoya MD , who is in agreement with above described findings, assessment and plan. Ashleigh Alvarez, [facility] Instructor of Medicine [facility] [place] Pager [phone] I spent 51 minutes in coordination of care and wyla-fu-xxgv with the patient and/or their s urrogate in which management of CAD, imaging plan and consultation with radiology, pneumonia treatment was discussed Associated attestation - Khurram Bedoya MD - 10/12/2017 3:00 PM PSTCardiology Attendi I have seen and examined Mr. Mckeon and discussed the patient's management with the [facility]. I reviewed the practitioner's note above and agree with the documented f indings and plan of care. KHURRAM BEDOYA MD Director of the [facility] Hypertrophic Cardiomyopathy Carton Making Machine Operator of Echocardiography Renal Medicine Specialisthousing inspector Division of Cardiovascular Medicine Lopez Suttonsebastiengeno - 10/11/2017 12:15 PM PSTTransthoracic echocardiogram completed. Final report to follow. in this encounter Plan of Treatment + +--------+ + + | Name | Priori | Associated Diagnoses | Order Schedule | | | ty | | | + +--------+ + + | FINANCE EFFECTIVENESS MANAGER INT CORONARY ANGIOGRAM | Routin | | Tomorrow for 1 | | | e | | Occurrences starting | | | | | 10/15/2017 until | | | | | 10/15/2017 | + +--------+ + + | FINANCE EFFECTIVENESS MANAGER EP ICD | Routin | | [...] [address] | | | [place] [address] | + + + CAPILLARY BLOOD GLUCOSE [...] [address] | | | [place] [address] | + + + X-RAY CHEST 2 VIEW (10/17/2017 7:04 AM) + + + | Specimen | Performing Laboratory | + + + | | [facility] RADIOLOGY VOICE RECOGNITION | + + [...] + + + | Blood | [facility] LABORATORY SERVICES, CORE [address] | | | [place] [address] | + + + BASIC METABOLIC SET [...] | >60 | >60 mL/min | | MACEDONIAN | | | + + + + | EGFR NON | 51 (L) | >60 mL/min | | -MACEDONIAN | | | + + + + [...] + + + | Blood | [facility] LABORATORY [facility], CORE [address] | | | [place] [address] | + + + + + | [...] | | ------ CBC (HEMOGRAM) | | ONLY[[id number]] Abnormal Final | | result Please view results for these tests on the | | individual orders. | + + CARDIOLOGY (10/17/2017)CARDIOLOGY (10/17/2017)X-RAY PORTABLE CHEST 1 VIEW (10/16/2017 6:20 PM) + + + | Specimen | Performing Laboratory | + + + | | [facility] RADIOLOGY VOICE RECOGNITION | + + + + + | Narrative | + + | STUDY: NE CHEST 1 VIEW HISTORY: Evaluated lead placement. COMPARISON: | | STUDY: NE CHEST 1 VIEW FINDINGS: A new left [...] Interface - 10/17/2017 7:51 AM PST STUDY: NE CHEST 1 | | VIEWHISTORY: Evaluated lead placement.COMPARISON: STUDY: NE CHEST 1 VIEWFINDINGS: A | | new [...] procedure. | | He is candidate for EDITOR-D since he as class 2 baseline heart failure and currently | | class 3 heart failure with LBBB 152 msec. PROCEDURE ATTENDING: Sophie Darby, | | FELLOW: Amarilis Castle MD PROCEDURAL | | DATA: Procedure: New implant Implanted generator electric motor mechanic: Medtronic | | Implanted leads electric motor mechanic: Medtronic Radha-procedure Anticoag: None Presenting | | rhythm: NSR Existing device under advisory? No Pacemaker dependent: No | | Method of sedation: Conscious sedation - Anesth provider Response to | | sedation: Normal Fluoroscopy time (see log): 45-47 minutes | | MEDICATIONS: See anesthesia log and laborer cook house log INTAKE AND OUTPUT: 1000 ml | [...] DEVICE INFORMATION: | | BiV-ICD pulse generator: System Software Programmer: Medtronic Model number: [id number] | | Serial number: [id number] RA lead: System Software Programmer: Medtronic Model number: | | 5076-52 Serial number: [id number] RV lead: System Software Programmer: Medtronic | | Model number: [id number] Serial number: [id number] CS lead: | | System Software Programmer: Medtronic Model number: [id number] Serial number: [id number] | | MEASURED PARAMETERS: RA lead: P [...] | | Fellow Division of Cardiovascular Medicine [facility] | | Pager [phone] Pursuant to Federal Medicare requirements, I certify that I, Sophie | | Wilner BREWER, was present for the entire procedure, performed all critical elements, and | | participated directly in the generation of this report. Sophie Darby MD | | Cardiovascular Medicine - Electrophysiology [facility] Cardi[facility] [place] at [facility] | | | + + PROCEDURE [...] Castle MD MEDICATIONS: See anesthesia log and laborer cook house | | log FLUIDS: In: 300 ml/ [...] interval (ms): 82 HV interval (ms): 75 NE interval (ms): | | 180 QRS duration [...] Fellow Division of | | Cardiovascular Medicine [facility] Pager [phone] Pursuant | | to Federal Medicare requirements, I certify that I, Sophie Darby MD, was present for | | the entire procedure, performed all critical elements, and participated directly in | | the generation of this report. Sophie Darby MD Cardiovascular Medicine - | | Electrophysiology [facility] [place] at [facility] | + + VBG-FULL ABL, [...] [address] | | | [place] [address] | + + + INTRAPROCEDURE IMAGING (10/16/2017 [...] [address] | | | [place] [address] | + + + CBC (HEMOGRAM) ONLY [...] + + + | Blood | [facility] LABORATORY SERVICES, CORE [address] [place] [address] | | | [place] [address] | + + + BASIC METABOLIC SET [...] | >60 | >60 mL/min | | MACEDONIAN | | | + +---------+ + | EGFR NON | 58 (L) | >60 mL/min | | -MACEDONIAN | | | + +---------+ + | [...] + + + | Blood | [facility], CORE [address] | | | [place] [address] | + + + + + | [...] | | ------ CBC (HEMOGRAM) | | ONLY[[id number]] Abnormal Final | | result Please view [...] [address] | | | [place] [address] | + + + 12 LEAD ECG [...] Laboratory | + + + | | [facility] [address] [place] [address] | | | [place] [address] | + + + CARDIAC CATH (10/15/2017 2:11 PM) + + | Procedure Note | + + | Tejal Modi MD - 10/15/2017 2:11 PM PST DATE OF PROCEDURE:October 15 | | 2018PERFORMING PHYSICIAN:Tejal Modi [facility] ATTENDING:Mike Bray MDThere was no | [...] 110 mL.FLUOROSCOPY TIME:17.8 minutes.FLUOROSCOPY | | DAP:7406.0 [id number]:1. Left ventricular pressure 91/23 mmHg.2. Aortic | | pressure 93/72 mmHg, mean of 80 mmHg. 3. Heart rate 71 beats per minute.ACCESS:1. | | 14-Lithuanian Impella sheath in the right femoral artery.2. 7-Lithuanian sheath in the left | | femoral artery.3. 6-Lithuanian sheath in the right femoral vein.ESTIMATED BLOOD [...] | micropuncture technique and ultrasound guidance, a 5-Lithuanian sheath was inserted in the | | right femoral artery and a 6-Lithuanian sheath was inserted in the right femoral vein. Two | | Perclose devices were deployed in the preclosure method and then the 5-Lithuanian sheath was | | exchanged over an Amplatz stiff wire for the 14-Lithuanian Impella sheath. A 5-Lithuanian | | angled pigtail catheter was then [...] technique and ultrasound guidance and placed a 7-Lithuanian sheath. A 7-Lithuanian XB 3.5 guide | | catheter was [...] and a 3.0 x 18 mm Resolute Wyarno drug-eluting stent was advanced over the | [...] and pulled out of the body. The 14-Lithuanian sheath was | | then removed and [...] with one 3.0 x 18 mm Resolute Wyarno drug-eluting stent. Successful | | percutaneous coronary [...] | | 10/15/2017 13:25:02DT: 10/15/2017 14:11:10Job #: [id number] | |2. Lesion type: C. | |3. [...] |BCN/MODL | | | | | | /[id number] | + + ACT, POC-CCL ONLY (10/15/2017 [...] [address] | | | [place] [address] | + + + ACT, POC-CCL ONLY (10/15/2017 12:17 PM) + +-------+ + | Component | Value | Ref Range | + +-------+ + | ACT, POC CCL | 247 | 90 - 150 | | INTRAPROC | | | + +-------+ + + + + | Specimen | Performing Laboratory | + + + | Blood | [facility], POINT OF CARE TESTS [address] | | | [place] [address] | + + + ACT, POC-CCL ONLY [...] [address] | | | [place] [address] | + + + FINANCE EFFECTIVENESS MANAGER EMERGENT/IMMEDIATE PROCEDURE (10/15/2017 11:00 AM) + + | Narrative | + + | Procedure performed in the Cardiac Sport Psychologist. See procedure notes for details. | + + CAPILLARY BLOOD GLUCOSE (NO CHG), POC (10/15/2017 9:25 AM) + +---------+ + | Component | Value | Ref Range | + +---------+ + | BLOOD GLUCOSE, POC | 119 (H) | 70 - 99 mg/dL | + +---------+ + + + + | Specimen | Performing Laboratory | + + + | | [facility], POINT OF CARE TESTS [address] | | | [place] [address] | + + + CBC (HEMOGRAM) ONLY [...] + + + | Blood | [facility]ORY [facility], CORE [address] | | | [place] [address] | + + + BASIC METABOLIC SET [...] 57 (L) | >60 mL/min | | MACEDONIAN | | | + + + + | EGFR NON | 47 (L) | >60 mL/min | | -MACEDONIAN | | | + + + + [...] + + + | Blood | [facility] SERVICES, CORE [address] [place] [address] | | | [place], [place] [address] | + + + + + | [...] | | ------ CBC (HEMOGRAM) | | ONLY[[id number]] Abnormal Final | | result Please view [...] + + + | Blood | [facility], CORE [address] | | | [place] [address] | + + + + + | [...] Laboratory | + + + | | [facility], POINT OF CARE TESTS [address] | | | [place] [address] | + + + BASIC METABOLIC SET [...] | >60 | >60 mL/min | | MACEDONIAN | | | + + + + | EGFR NON | 55 (L) | >60 mL/min | | -MACEDONIAN | | | + + + + [...] + + + | Blood | [facility] SERVICES, CORE [address] | | | [place] [address] | + + + + + | [...] + + + | Blood | [facility] LABORATORY [facility], CORE [address] | | | [place] [address] | + + + CBC ONLY (10/14/2017 4:24 AM) + + + | Specimen | Performing Laboratory | + + + | Blood | | + + + + + | Narrative | + + | The following orders were created for panel order CBC ONLY. | | Procedure | | Abnormality Status | | --------- | | ------ CBC (HEMOGRAM) | | ONLY[[id number]] Abnormal Final | | result Please view [...] + + + | | [facility], POINT OF CARE TESTS [address] | | | [place] [address] | + + + PET CARDIAC METABOLIC [...] | | significant tracer uptake within the cyd-mx-axdenz anterior wall/interventricular septum | | and apex [...] Note | + + | Service Account, [employer] In Interface - 10/14/2017 5:47 PM PST [...] significant tracer | | uptake within the gbo-uu-glmtme anterior wall/interventricular septum and apex | | corresponding to same non-perfused areas seen on myocardial rest perfusion scan, | | compatible with nonviable myocardium in these regions. I have personally reviewed the | | images and, if necessary, edited the report. I agree with the report as now presented. | |No significant tracer uptake within the xrg-zh-fklejz anterior wall/interventricular septum and apex corresponding to [...] + + + | | [facility], POINT OF CARE TESTS [address] | | | [place] [address] | + + + CAPILLARY BLOOD GLUCOSE [...] [address] | | | [place] [address] | + + + CAPILLARY BLOOD GLUCOSE (NO CHG), POC (10/13/2017 4:16 PM) + +---------+ + | Component | Value | Ref Range | + +---------+ + | BLOOD GLUCOSE, POC | 201 (H) | 70 - 99 mg/dL | + +---------+ + + + + | Specimen | Performing Laboratory | + + + | | [facility] - [facility], POINT OF CARE TESTS [address] | | | [place] [address] | + + + CAPILLARY BLOOD GLUCOSE [...] [address] | | | [place] [address] | + + + CAPILLARY BLOOD GLUCOSE (NO CHG), POC (10/13/2017 3:47 PM) + +---------+ + | Component | Value | Ref Range | + +---------+ + | BLOOD GLUCOSE, POC | 181 (H) | 70 - 99 mg/dL | + +---------+ + + + + | Specimen | Performing Laboratory | + + + | | [facility], POINT OF CARE TESTS [address] | | | [place] [address] | + + + CAPILLARY BLOOD GLUCOSE [...] [address] | | | [place] [address] | + + + CAPILLARY BLOOD GLUCOSE [...] [address] | | | [place] [address] | + + + CAPILLARY BLOOD GLUCOSE (NO CHG), POC (10/13/2017 3:03 PM) + +---------+ + | Component | Value | Ref Range | + +---------+ + | BLOOD GLUCOSE, POC | 153 (H) | 70 - 99 mg/dL | + +---------+ + + + + | Specimen | Performing Laboratory | + + + | | [facility], POINT OF CARE TESTS [address] | | | [place] [address] | + + + CAPILLARY BLOOD GLUCOSE (NO CHG), POC (10/13/2017 2:44 PM) + +---------+ + | Component | Value | Ref Range | + +---------+ + | BLOOD GLUCOSE, POC | 130 (H) | 70 - 99 mg/dL | + +---------+ + + + + | Specimen | Performing Laboratory | + + + | | [facility], POINT OF CARE TESTS [address] | | | [place] [address] | + + + CAPILLARY BLOOD GLUCOSE [...] [address] | | | [place] [address] | + + + CAPILLARY BLOOD GLUCOSE [...] [address] | | | [place] [address] | + + + NM MYOCARDIAL PERFUSION (SPECT) SINGLE AT REST OR STRESS (10/13/2017 11:18 AM) + + + | Specimen | Performing Laboratory | + + + | | [facility] RADIOLOGY VOICE RECOGNITION | + + + [...] Note | + + | Service Account, [employer] In Interface - 10/13/2017 5:30 PM PST [...] Laboratory | + + + | | [facility], POINT OF CARE TESTS [address] | | | [place] [address] | + + + CBC (HEMOGRAM) ONLY [...] + + + | Blood | [facility], CORE [address] | | | [place] [address] | + + + BASIC METABOLIC SET [...] | >60 | >60 mL/min | | MACEDONIAN | | | + +---------+ + | EGFR NON | 59 (L) | >60 mL/min | | -MACEDONIAN | | | + +---------+ + | [...] | + + + | Blood | [facility], CORE [address] | | | [place] [address] | + + + + + | [...] | | ------ CBC (HEMOGRAM) | | ONLY[[id number]] Abnormal Final | | result Please view [...] Laboratory | + + + | | [facility], POINT OF CARE TESTS [address] [facility] [address] | | | [place] [address] | + + + CARDIOLOGY (10/13/2017)CARDIOLOGY (10/13/2017)APTT (ACT. PART. THROMBO TIME) (10/12/2017 8 :44 PM) + +-------+ + | Component | Value | Ref Range | + +-------+ + | APTT | 28.7 | 26.0 - 36.0 seconds | + +-------+ + + + + | Specimen | Performing Laboratory | + + + | Blood | [facility] SERVICES, CORE [address] [place] [address] | | | [place], [place] [address] | + + + + + | [...] [address] | | | [place] [address] | + + + MR CARDIAC COMPREHENSIVE W/O CONTRAST (10/12/2017 12:38 PM) + + + | Specimen | Performing Laboratory | + + + | | [facility] RADIOLOGY CARDIAC IMAGING | + + + + + | Narrative | + + | Report ====== Machine Cutter: Rodríguez Fortune ([id number])shubham Aircraft Inspector: shubham | | richy Fellow: shubham lockhart Coat Agent: shubham lockhart Viewer: shubham | | richy Report Date: 16 Oct 2017, 09:22:25 PST Patient ------- Patient: | | RON MCKEON Neena Acc #: [id number] | | Ethnicity: N Status: Final Report [...] Formula) | | Image Quality: Good Scanner System Software Programmer: [email or web address] Scanner Model: Ingenia | | Scanner Serial Number: [id number] Scanner Software Platform: 5.3.15.3.1.0 Staff: Rodríguez Fortune Modality: MR Indication Name: routine Protocol Name: CMR W Flows WO Contrast | | Findings -------- Non-cardiac findings were reviewed by Dr. Curtis. This exam was | | terminated prematurely and is lmiited to admissions nurse images. There are bilateral pleural | | [...] - 10/16/2017 9:22 AM PST | | Report======Machine Cutter: Rodríguez Fortune ([id number]), shubham Rodriguezalyst: shubham | | Lorena: shubham Beckician: shubham Beckwithwer: shubham | | espinozamRalbertoort Date: 16 Oct 2017, 09:22:25 PSTPatient-------Patient: RON MCKEON | | JMedical Record Number: [id number] ID: [id number] #: [id number]: [id number]: | | Final ReportReport Number: [id number]: MaleBirthdate: 1955 (61 yrs)Study Date: 05 | | Oct 2017Study Description: CMR with Flows with ContrastReferring Physician: KHURRAM | | VIKASHITRADHABlood Pressure: /Heart rate:Height (cm): 0Weight (kg): 89BMI (kg/m ): 0BSA | | (m ): 0 (Mosteller Formula)Image Quality: FunnelFirecanner System Software Programmer: [employer] | | hakuScAppliLog Model: [employer] Serial Number: [id number] Software Platform: | | 5.3.15.3.1.0Staff: Rodríguez FortuneModality: MRIndication Name: routineProtocol Name: | | CMR W Flows WO ContrastFindings--------Non-cardiac findings were reviewed by | | Ever.This exam was terminated prematurely and is lmiited to admissions nurse images.There are | | bilateral pleural effusions. [...] Formula) | |Image Quality: Good | |Scanner System Software Programmer: FID3 | |Scanner Model: Open Energi | |Scanner Serial Number: [id number] | |Scanner Software Platform: 5.3.15.3.1.0 | |Staff: Rodríguez Fortune | |Modality: MR | |Indication Name: routine | |Protocol Name: CMR W Flows WO Contrast | |Findings | |-------- | |Non-cardiac findings were reviewed by Dr. Curtis. | |This exam was terminated prematurely and is lmiited to admissions nurse images. | |There are bilateral pleural effusions. [...] [address] | | | [place] [address] | + + + CBC (HEMOGRAM) ONLY [...] + + + | Blood | [facility], CORE [address] [place] [address] | | | [place] [address] | + + + APTT (ACT. PART. THROMBO TIME) (10/12/2017 7:01 AM) + + + + | Component | Value | Ref Range | + + + + | APTT | 50.7 (H) | 26.0 - 36.0 seconds | + + + + + + + | Specimen | Performing Laboratory | + + + | Blood | [facility] LAB[facility] [address] | | | [place] [address] | + + + + + | [...] | >60 | >60 mL/min | | MACEDONIAN | | | + + + + | EGFR NON | 55 (L) | >60 mL/min | | -MACEDONIAN | | | + + + + [...] + + + | Blood | [facility]ORY SERVICES, CORE [address] | | | [place] [address] | + + + + + | [...] | | ------ CBC (HEMOGRAM) | | ONLY[[id number]] Abnormal Final | | result Please view [...] + + + | Blood | [facility] SERVICES, CORE [address] [place] [address] | | | [place] [address] | + + + + + | [...] + + + | | [facility], POINT OF CARE TESTS [address] | | | [place] [address] | + + + CAPILLARY BLOOD GLUCOSE [...] [address] | | | [place] [address] | + + + CULTURE, SPUTUM (10/11/2017 5:45 PM) + + + | Specimen | Performing Laboratory | + + + | Sputum | [facility] [address] [place], [place] | | | [address] | + + + + + | Narrative | + + | Culture Report: This culture has been discontinued. Gram Stain: Squamous | | epithelial cells in the specimen indicate the presence of significant oropharyngeal | | contamination. CRITICAL RESULTS Results called to and verified by: Vicki | | Amy at phone # [facility] on: 10/12/2017 8:10:02 AM PST by: [id number] | + + APTT (ACT. PART. THROMBO TIME) (10/11/2017 4:49 PM) + + + + | Component | Value | Ref Range | + + + + | APTT | 39.7 (H) | 26.0 - 36.0 seconds | + + + + + + + | Specimen | Performing Laboratory | + + + | Blood | [facility] LAB[facility], CORE [address] | | | [place] [address] | + + + + + | [...] + + + | Blood | [facility] SERVICES, CORE [address] [place] [address] | | | [facility] [address] | + + + APTT (ACT. PART. THROMBO TIME) (10/11/2017 12:43 PM) + + + + | Component | Value | Ref Range | + + + + | APTT | 45.6 (H) | 26.0 - 36.0 seconds | + + + + + + + | Specimen | Performing Laboratory | + + + | Blood | [facility] [address] | | | [place] [address] | + + + + + | [...] + + + | Blood | [facility] LABORATORY SERVICES, SPECIAL IMM + COAG [address] [facility] | | | [place] [address] | + + + + + | Narrative | + + | Alternate forms of testing such as fructosamine should be considered for | | monitoring termite control servicer glycemic control in patients with: Increased red cell turnover, | | certain hemoglobinopathies (e.g., HbS, HbE, HbC and thalassemia syndromes), anemias, | | blood loss, chronic liver disease and hemochromatosis (artefactually low HbA1c); iron | | deficiency anemia (artefactually high HbA1c due to enhanced glycation of hemoglobin). | | Alternate forms of testing such as fructosamine should be considered for | | monitoring correction glycemic control in patients with: Increased red [...] | | ------ CBC (HEMOGRAM) | | ONLY[[id number]] Abnormal Final | | result Please view [...] Laboratory | + + + | | [facility] DEPT OF CARDIOLOGY [address] [place] [address] | | | [place] [address] | + + + + + | Narrative | + + | [facility] Adult Echocardiography Laboratory | | [address], [place] [address] Ph: | | Pt Name: RON MCKEON Study | | Date/Time 10/11/2017 / 11:47:35 AM | | Most recent prior: 03/30/2017 Acc #: [id number] No. previous | | echos: 4 : 1955 61 years Heart Rate: 84 bpm | | Height: 69.0 in Blood Pressure: 115/68 mm/Hg | | Weight: 196.0 lb Gender: M | | BSA: 2.05 m2 Order ID: [id number] | | Boring Machine Operator Horizontal: Shahab Sutton [facility] Referring Provider: Kimmy Low Patient | | [...] use disorder who presents on transfer from [facility] for consideration of | | complex PCI [...] | Wall Scoring: Report electronically signed by: [id number] Khurram Bedoya MD | | (10/11/2017, 12:59:49 PM) Final (Updated) | + + + + | Procedure Note | + + | Interface, Ecg Results - 10/11/2017 1:[address] [facility] [email or web address] | | [facility] Echocardiography Laboratory [facility] | | [place], [place] [address] Pt Name: RON Chaudhary | | MIKE Study Date/Time 10/11/2017 / 11:47:35 AMMRN: [id number] Most | | recent prior: 03/30/2017Acc #: [id number] No. previous echos: 4DOB: | | 1955 61 years Heart Rate: 84 bpmHeight: 69.0 in Blood | | Pressure: 115/68 mm/HgWeight: 196.0 lb Gender: MBSA: | | 2.05 m2 Order ID: [id number] Boring Machine Operator Horizontal: Shahab Sutton RDCSReferring | | Provider: Kimmy [...] use disorder who presents on transfer from [place] | | for consideration of complex PCI [...] Ao (prox) | | 3.70 cm 18.1 mm/m2Gybhqdajhw of chamber size and geometry is accomplished | | through the incorporation of linear, volumetric, and indexed values Wall Scoring: Report | | electronically signed by: [id number] Khurram Bedoya MD (10/11/2017, 12:59:49 PM) | [...] | | | |Report electronically signed by: [id number] Khurram Bedoya MD (10/11/2017, 12:59:49 | |PM) | | | | | | | | Final (Updated) | + + X-RAY PORTABLE CHEST 1 VIEW (10/11/2017 11:24 AM) + + + | Specimen | Performing Laboratory | + + + | | [place] RADIOLOGY VOICE RECOGNITION | + + + + + | Narrative | + + | STUDY: NE CHEST 1 VIEW COMPARISON: 03/21/17. HISTORY: Cough. [...] Note | + + | Service Account, [email or web address] Res In Interface - 10/11/2017 1:51 PM PST STUDY: NE CHEST 1 | | VIEW COMPARISON: 03/21/17.HISTORY: [...] + + + | Blood | [facility] [address] | | | [place] [address] | + + + CBC ONLY (10/11/2017 6:31 AM) + + + | Specimen | Performing Laboratory | + + + | Blood | | + + + + + | Narrative | + + | The following orders were created for panel order CBC ONLY. | | Procedure | | Abnormality Status | | --------- | | ------ CBC (HEMOGRAM) | | ONLY[[id number]] Abnormal Final | | result Please view [...] + + + | Blood | [facility], CORE [address] | | | [place] [address] | + + + + + | [...] | >60 | >60 mL/min | | MACEDONIAN | | | + +---------+ + | EGFR NON | >60 | >60 mL/min | | -MACEDONIAN | | | + +---------+ + | [...] + + + | Blood | [facility] [address] | | | [place] [address] | + + + + + | [...] + + + | Blood | [facility], CORE [address] [place] [address] | | | [place] [address] | + + + APTT (ACT. PART. THROMBO TIME) (10/10/2017 11:27 PM) + +-------+ + | Component | Value | Ref Range | + +-------+ + | APTT | 29.5 | 26.0 - 36.0 seconds | + +-------+ + + + + | Specimen | Performing Laboratory | + + + | Blood | [facility] [address] | | | [place] [address] | + + + + + | [...] + + + | Blood | [facility] [address] | | | [place] [address] | + + + + + | [...] | | ------ CBC (HEMOGRAM) | | ONLY[[id number]] Abnormal Final | | result Please view [...] + + + | Blood | [facility] [address] | | | [place] [address] | + + + + + | [...] Laboratory | + + + | | [facility] [address] [place] [address] | | | [place] [address] | + + + ORDERS OTHER (10/10/2017)CARDIOLOGY (10/10/2017)CARDIOLOGY (10/10/2017)CARDIOLOGY (10/10/19)in this encounter Visit Diagnoses + + | Diagnosis | + + | NSTEMI (non-ST elevated myocardial infarction) (HCC) - Primary | + + | Acute myocardial infarction, subendocardial infarction, episode of care unspecified | + + | Coronary 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 involving [place] coronary artery of [place] heart, angina | | presence unspecified | [...] Coronary atherosclerosis of unspecified type of vessel, [place] or graft | + + | Paroxysmal atrial flutter (HCC) | + + | Atrial flutter | + + | Chronic systolic congestive heart failure (HCC) | + + | Chronic systolic heart failure | + + | Encounter for insertion of cardiac resynchronization therapy defibrillator (EDITOR-D) | + + | Influenza, pneumonia | [...] 12:42 | | | | | Starting [facility] 10/15/17 at 1242, | | PST | [...] Units | | | | PRN, Starting [facility] 10/15/17 at 1207, | | PST | | | | | Until Discontinued | | | | | | + +-------+ +--------+---+---+ +---+---+ | | | +---+---+ + +-------+ +--------+---+---+ | heparin 1,000 unit/mL injection | Given | 10/15/2017 | 1,500 | | | | intravenous, INTRAPROCEDURE | | 12:20 | Units | | | | PRN, Starting [facility] 10/15/17 at 1220, | | PST | [...] 13:05 | | | | | Starting [facility] 10/15/17 at 1305, | | PST | | | | | Until Discontinued | | | | | | + +-------+ +--------+---+---+ +---+---+ | | | +---+---+ + +-------+ +------+---+---+ | iohexol (OMNIPAQUE) 300 mg | Given | 10/16/2017 | 7 mL | | | | iodine/mL INTRAPROCEDURE PRN, | | 14:27 | | | | | Starting [facility] 10/16/17 at 1427, | | PST | [...]
--- OUTSIDE RECORDS SUMMARY | ~2017-12-16 | XMS | Encounter Summary ---
Demographics + + + | Address | [address] | | | [place] [address] | + + + | Home Phone [...] Author | [facility] | | | and [place] | + + + | Organization | [facility] | | | and [place] | + + + | Address | Unknown | + + + | Phone | Unavailable | + + + Support + + + + + | Name | Relationship | Address | Phone | + + + + + | [place] Will | ECON | [address] | | | | | #[place] | | | | | [address] | | + + + + + Care Team Providers + +------+ + | Care Streaming Media Specialist Name | Role | Phone | [...] Echo | | | | | | [place], | [address] | | | | | 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[place], | | | | | r ICD | [address] | [place] | | | | | (implantable | [place] | [address] | | | | | | [place], | Phone: | | | | | cardioverter | [place] | [phone] | | | | | -defibrillat | [phone] | Fax: | | | | | or) in place | Phone: | [phone] | | | | | Ischemic | [phone] | | | | | | cardiomyopat | Fax: | | | | | | hy | [phone] | | | | | | Procedures | | | | | | | ECHO | | | | | | | Complete NC | | | | | | | ECHO HEART | | | | | | | XTHORACIC,CO | | | | | | | MPLETE W | | | | | | | DOPPLER NC | | | | | | [...] + + | 11/11/ | Office | [facility] [place] | Jenny, | DENIER CONTROL OPERATOR-D (AICD) | | 2018 | Visit | CARDIOLOGY [address] | ADARSH Santo [address] | [employer] 10/16/17 | | | | [place], | [place], | [place] | | | | [place] [address] | [place] [address] | (Primary Dx); | | | | [phone] | [phone] | Tachycardia; | | | | | | Ischemic | | | | | | cardiomyopathy; | | | | | | Coronary artery | | | | | | disease involving | | | | | | [place] coronary | | | | | | artery of [place] | | | | | | heart without angina | | | | | | pectoris; Acute | | | | | | anterior wall [place] | | | | | | ([facility]); H/O atrial | | | [...] Interrogation CANCELED: Device Interrogation - Remote 2. DENIER CONTROL OPERATOR-D (AICD) [employer] 10/16/17 [facility] Stecker Z95.810 V45.02 Device Interrogation CANCELED: [...] thrombus, recent status post stents to , DENIER CONTROL OPERATOR-D placement in [facility] on 10/17/2017. He was last [...] (coronary 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) Ischemic cardiomyopathy Pulmonary edema DENIER CONTROL OPERATOR-D (AICD) [employer] 10/16/17 [facility] Stecker Implantable defibrillator reprogramming/check H/O atrial flutter Tachycardia CURRENT MEDICATIONS Current Outpatient Prescriptions Medication Sig Dispense Refill aspirin 81 MG tablet Take 81 mg by mouth Daily. atorvaSTATin (LIPITOR) 80 MG tablet Take 1 tablet by mouth nightly. 30 tablet 5 Cholecalciferol (VITAMIN D-3) 01544 units CAPS Take by mouth Once a [...] kg (212 lb 15.4 oz) | B [place] 30.56 kg/m Physical Exam Constitutional: He is [...] RESULTS reviewed during visit today primarily from [facility]: LIPID Lab Results Component Value Date LDLEX [...] PLTEX 226 10/17/2017 I reviewed records from [facility] for office visit on 10/2017 whic h [...] requiring IABP, pressor (dopamine, norepin ephrine). [facility] were on divert. Patient wasn't transferred to [facility]. B. Echocardiogram 03/17/2017 shows LV ejection fraction is severely decreased, vi sually estimated left ventricular ejection fraction is 20 - 25%, left ventricular systolic t hickening is segmentally abnormal, mildly reduced RV systolic function. Normal RV size, no s ignificant valvular abnormalities seen, compared to the most recent exam dated, 03/15/2017, there is no significant changes C. At [facility], patient had another STEMI code [...] to follow up closely with a local back end web developer in [place]. He wias dis chargeed with a LifeVest [...] we will transfer the patie nt to [facility] for consideration of urgent coronary [...] is upgraded to a class I-II of [place] [employer] functional class. Heart fa ilure [...] myocardium in these regions. C. S/P [employer] DENIER CONTROL OPERATOR-D 10-16-17 Dr Darby, [facility]. Ice interrogation today shows one [...] a week ago. This was after his [place] and a t the same time patient was having ventricular tachycardia. He was initiated on amiodarone and then discontinued before discharge. The plan is to monitor through his device and see i f this is a problem that needs to be addressed. Patient is not on anticoagulation he was le ft that way from [facility]. Patient has had several GI [...] this chart may have been created with [email or web address] voice recognition software. Occasi onal wrong-word or [...] | | | | | | [place] [address] | | | | | | [phone] | | | | | | | | +--------+ + + + + | 12/24/ | Office | Cardiac | Randy Figueroa, | | | 2017 | Visit | Rehabilitation | MD Javid Crespo | | | | | | [place], | | | | | | [place] [address] | | | | | | [phone] | | | | | | | | +--------+ + + + + | 12/31/ | Office | Cardiac | Randy Figueroa, | | | 2017 | Visit | Rehabilitation | MD Javid Crespo | | | | | | [place], | | | | | | [place] [address] | | | | | | [phone] | | | | | | | | +--------+ + + + + | 01/07/ | Office | Cardiac | Randy Figueroa, | | | 2017 | Visit | Rehabilitation | MD Javid Crespo | | | | | | [place], | | | | | | [place] [address] | | | | | | [phone] | | | | | | | [...] | | | | | | [place] [address] | | | | | | [phone] | | | | | | | | +--------+ + + + + | 01/14/ | Office | Cardiac | Randy Figueroa, | | | 2017 | Visit | Rehabilitation | MD [address] | | | | | | [place], | | | | | | [place] [address] | | | | | | [phone] | | | | | | | | +--------+ + + + + | 01/21/ | Office | Cardiac | Randy Figueroa, | | | 2017 | Visit | Rehabilitation | MD [address] | | | | | | [place], | | | | | | [place] [address] | | | | | | [phone] | | | | | | | | +--------+ + + + + | 01/28/ | Office | Cardiac | Randy Figueroa, | | | 2017 | Visit | Rehabilitation | MD [address] | | | | | | [place], | | | | | | [place] [address] | | | | | | [phone] | | | | | | | | +--------+ + + + + | 02/04/ | Office | Cardiac | Randy Figueroa, | | | 2017 | Visit | Rehabilitation | MD [address] | | | | | | [place], | | | | | | [place] [address] | | | | | | [phone] | | | | | | | | +--------+ + + + + | 02/11/ | Office | Cardiac | Randy Figueroa, | | | 2017 | Visit | Rehabilitation | MD [address] | | | | | | [place], | | | | | | [place] [address] | | | | | | [phone] | | | | | | | | +--------+ + + + + | 02/18/ | Office | Cardiac | Randy Figueroa, | | | 2017 | Visit | Rehabilitation | MD [address] | | | | | | [place], | | | | | | [place] [address] | | | | | | [phone] | | | | | | | | +--------+ + + + + | 02/24/ | Procedure | Physical Medicine | Prosper Esteves | | | 2017 | visit | and Rehabilitation | MD Art Isabel | | | | | | [place] | | | | | | [address] | | | | | | | | +--------+ + + + + | 02/25/ | Office | Cardiac | Randy Figueroa, | | | 2017 | Visit | Rehabilitation | MD Javid Crespo | | | | | | [place], | | | | | | [place] [address] | | | | | | [phone] | | | | | | | | +--------+ + + + + | 03/04/ | Office | Cardiac | Radny Figueroa, | | | 2017 | Visit | Rehabilitation | MD Javid Crespo | | | | | | [place], | | | | | | [place] [address] | | | | | | [phone] | | | | | | | | +--------+ + + + + | 03/11/ | Office | Cardiac | CarolinaLindarisa, | | | 2017 | Visit | Rehabilitation | [address] | | | | | | [place], | | | | | | [place] [address] | | | | | | [phone] | | | | | | | | +--------+ + + + + + +--------+ + + | Name | Priori | Associated Diagnoses | Order Schedule | | | ty | | | + +--------+ + + | ECG 12 lead | Routin | DENIER CONTROL OPERATOR-D (AICD) | Ordered: 11/11/2017 | | | e | [employer] 10/16/17 | | | | | EULOGIO Darby | | | | | Tachycardia | | | | | Ischemic | | | | | cardiomyopathy | | | | | Coronary artery | | | | | disease involving | | | | | [place] coronary | | | | | artery of [place] | | | | | heart without angina | | | | | pectoris Acute | | | | | anterior wall [place] | | | | | ([facility]) H/O atrial | | | | | flutter | | + +--------+ + + | ECHO Complete | Routin | DENIER CONTROL OPERATOR-D (AICD) | Expected: | | | e | [employer] 10/16/17 | 11/11/2017, Expires: | | | | EULOGIO Darby | 11/11/2018 | | | | Ischemic | | | | | cardiomyopathy | | + +--------+ + + as of this encounter Visit Diagnoses + + | Diagnosis | + + | DENIER CONTROL OPERATOR-D (AICD) [employer] 10/16/17 EULOGIO Darby - Primary | + + | Tachycardia | + + | Tachycardia, unspecified | + + | Ischemic cardiomyopathy | + + | Other specified forms of chronic ischemic heart disease | + + | Coronary 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 involving [place] coronary artery of [place] heart without angina | | pectoris | + + | Acute anterior wall [place] (HCC) | + + | Acute myocardial [...]
--- OUTSIDE RECORDS SUMMARY | ~2017-12-16 | XMS | Encounter Summary ---
Demographics + + + | Address | [address] | | | [place] [address] | + + + | Home Phone [...] Author | [facility] | | | and [place] | + + + | Organization | [facility] | | | and [place] | + + + | Address | Unknown | + + + | Phone | Unavailable | + + + Support + + + + + | Name | Relationship | Address | Phone | + + + + + | [place] Will | ECON | [address] | | | | | #[place] | | | | | [address] | | + + + + + Care Team Providers + +------+ + | Care Radiation / Chemistry Technician Name | Role | Phone | [...] | | | | | [address] | | | | | | [place] | | | | | | [address] | | | | | | [phone] | | | +--------+ + + + [...] | | | | | | [place] [address] | | | | | | [phone] | | | | | | | | +--------+ + + + + | 12/24/ | Office | Cardiac | Randy Figueroa, | | | 2017 | Visit | Rehabilitation | MD [address] | | | | | | [place], | | | | | | [place] [address] | | | | | | [phone] | | | | | | | | +--------+ + + + + | 12/31/ | Office | Cardiac | Randy Figueroa, | | | 2017 | Visit | Rehabilitation | MD [address] | | | | | | [place], | | | | | | [place] [address] | | | | | | [phone] | | | | | | | | +--------+ + + + + | 01/07/ | Office | Cardiac | Randy Figueroa, | | | 2017 | Visit | Rehabilitation | MD [address] | | | | | | [place], | | | | | | [place] [address] | | | | | | [phone] | | | | | | | [...] | | | | | | [place] [address] | | | | | | [phone] | | | | | | | | +--------+ + + + + | 01/14/ | Office | Cardiac | Randy Figueroa, | | | 2017 | Visit | Rehabilitation | MD [address] | | | | | | [place], | | | | | | [place] [address] | | | | | | [phone] | | | | | | | | +--------+ + + + + | 01/21/ | Office | Cardiac | Randy Figueroa, | | | 2017 | Visit | Rehabilitation | MD [address] | | | | | | [place], | | | | | | [place] [address] | | | | | | [phone] | | | | | | | | +--------+ + + + + | 01/28/ | Office | Cardiac | Randy Figueroa, | | | 2017 | Visit | Rehabilitation | MD [address] | | | | | | [place], | | | | | | [place] [address] | | | | | | [phone] | | | | | | | | +--------+ + + + + | 02/04/ | Office | Cardiac | Randy Figueroa, | | | 2017 | Visit | Rehabilitation | MD [address] | | | | | | [place], | | | | | | [place] [address] | | | | | | [phone] | | | | | | | | +--------+ + + + + | 02/11/ | Office | Cardiac | Randy Figueroa, | | | 2017 | Visit | Rehabilitation | MD Javid Crespo | | | | | | [place], | | | | | | [place] [address] | | | | | | [phone] | | | | | | | | +--------+ + + + + | 02/18/ | Office | Cardiac | Randy Figueroa, | | | 2017 | Visit | Rehabilitation | MD Javid Crespo | | | | | | [place], | | | | | | [place] [address] | | | | | | [phone] | | | | | | | | +--------+ + + + + | 02/24/ | Procedure | Physical Medicine | Prosper Esteves | | | 2017 | visit | and Rehabilitation | MD Art Isabel | | | | | | [place] | | | | | | [address] | | | | | | | | +--------+ + + + + | 02/25/ | Office | Cardiac | Randy Figueroa, | | | 2017 | Visit | Rehabilitation | MD [address] | | | | | | [place], | | | | | | [place] [address] | | | | | | [phone] | | | | | | | | +--------+ + + + + | 03/04/ | Office | Cardiac | Randy Figueroa, | | | 2017 | Visit | Rehabilitation | MD [address] | | | | | | [place], | | | | | | [place] [address] | | | | | | [phone] | | | | | | | | +--------+ + + + + | 03/11/ | Office | Cardiac | Randy Figueroa, | | | 2017 | Visit | Rehabilitation | MD [address] | | | | | | [place], | | | | | | [place] [address] | | | | | | [phone] | | | | | | | | +--------+ + + + + as of this encounter Visit Diagnoses Not on filein this encounter"
--- OUTSIDE RECORDS SUMMARY | ~2017-12-16 | XMS | Encounter Summary ---
Demographics + + + | Address | [address] | | | [place] [address] | + + + | Home Phone [...] | | | | | [place] [address] | | + + + + + Care Team Providers + +------+ + | Care Foster Care Social Worker Name | Role | Phone [...] | 2018 | Encounter | Services at [facility] | | | | | | [address] [facility] | | | | | | [facility] | | | | | | Mailcode: [id number] | | | | | | [facility] | | | | | | [place], [place] | | | | | | [address] | | | | | | [phone] | | | +--------+ + + + [...]
--- OUTSIDE RECORDS SUMMARY | ~2017-12-16 | XMS | Encounter Summary ---
Demographics + + + | Address | [address] | | | [place] [address] | + + + | Home Phone [...] | Author | [facility] | | | and [place] | + + + | Organization | [facility] | | | and [place] | + + + | Address | Unknown | + + + | Phone | Unavailable | + + + Support + + + + + | Name | Relationship | Address | Phone | + + + + + | [place] Will | ECON | [address] | | | | | #[place] | | | | | [address] | | + + + + + Care Team Providers + +------+ + | Care General Cargo Clerk Name | Role | Phone | [...] | | | | | hy | [address] | [address] | | | | | Procedures | [place], | [place] | | | | | [place] | [place] [address] | [place], [place] | | | | | OUTPATIENT | Phone: | [phone] | | | | | CARDIAC | [phone] | Phone: | | | | | REHAB W/O | Fax: | [phone] | | | | | CONT ECG | [phone] | Fax: | | | | | MONITOR | | [phone] | + + + + + + [...] | | | | | hy | [address] | [address] | | | | | Procedures | [place], | [place] | | | | | [place] | [place] [address] | [place], [place] | | | | | OUTPATIENT | Phone: | [phone] | | | | | CARDIAC | [phone] | Phone: | | | | | REHAB W/O | Fax: | [phone] | | | | | CONT ECG | [phone] | Fax: | | | | | MONITOR | | [phone] | + + + + + + + Encounter Details +--------+---------+ + + + | Date | Type | Department | Care Team | Description | +--------+---------+ + + + | 11/11/ | Office | [facility] | Rahullindacathy Lindarahul, | Ischemic | | 2018 | Visit | MED CTR CARDIAC | MD [address] | cardiomyopathy | | | | REH[address]ILIT[address] | [place], | | | | | [address] [place] | [place] [address] | | | | | [place] [address] | [phone] | | | | | [phone] | | | | | | | [...] may be different from the or iginal. [facility] CARDIAC REHABILITATION [address] [facility] [address] Cardiac Rehab Evaluation Date: 11/11/2017 Patient Information [...] thrombus, recent status post stents to , COMBINING MACHINE OPERATOR-D placement in [facility] on 10/17/2017. 11/11/17 At his cardiology appointment [...] was 106/70. His was co hardeep from [place] to follow him home. He waited in [...] Healthy Dietary Education Date: 11/11/17 -Referral to Solar Sales: Date: -DVD: Healthy Eating For Life Date: [...] exercise until stable. Date: Range: -Referral to Antenna Machine Operator Date: Education Points listed below- Date Completed: [...] | | | | | | [place] [address] | | | | | | [phone] | | | | | | | | +--------+ + + + + | 12/24/ | Office | Cardiac | Randy Figueroa, | | | 2017 | Visit | Rehabilitation | MD Javid Crespo | | | | | | [place], | | | | | | [place] [address] | | | | | | [phone] | | | | | | | | +--------+ + + + + | 12/31/ | Office | Cardiac | Randy Figueroa, | | | 2017 | Visit | Rehabilitation | MD Javid Crespo | | | | | | [place], | | | | | | [place] [address] | | | | | | [phone] | | | | | | | | +--------+ + + + + | 01/07/ | Office | Cardiac | Randy Figueroa, | | | 2017 | Visit | Rehabilitation | MD Javid Crespo | | | | | | [place], | | | | | | [place] [address] | | | | | | [phone] | | | | | | | [...] | | | | | | [place] [address] | | | | | | [phone] | | | | | | | | +--------+ + + + + | 01/14/ | Office | Cardiac | Randy Figueroa, | | | 2017 | Visit | Rehabilitation | MD [address] | | | | | | [place], | | | | | | [place] [address] | | | | | | [phone] | | | | | | | | +--------+ + + + + | 01/21/ | Office | Cardiac | Randy Figueroa, | | | 2017 | Visit | Rehabilitation | MD [address] | | | | | | [place], | | | | | | [place] [address] | | | | | | [phone] | | | | | | | | +--------+ + + + + | 01/28/ | Office | Cardiac | Randy Figueroa, | | | 2017 | Visit | Rehabilitation | MD [address] | | | | | | [place], | | | | | | [place] [address] | | | | | | [phone] | | | | | | | | +--------+ + + + + | 02/04/ | Office | Cardiac | Randy Figueroa, | | | 2017 | Visit | Rehabilitation | MD [address] | | | | | | [place], | | | | | | [place] [address] | | | | | | [phone] | | | | | | | | +--------+ + + + + | 02/11/ | Office | Cardiac | Randy Figueroa, | | | 2017 | Visit | Rehabilitation | MD [address] | | | | | | [place], | | | | | | [place] [address] | | | | | | [phone] | | | | | | | | +--------+ + + + + | 02/18/ | Office | Cardiac | Randy Figueroa, | | | 2017 | Visit | Rehabilitation | MD [address] | | | | | | [place], | | | | | | [place] [address] | | | | | | [phone] | | | | | | | | +--------+ + + + + | 02/24/ | Procedure | Physical Medicine | Prosper Esteves | | | 2017 | visit | and Rehabilitation | MD [address] | | | | | | [place] | | | | | | [address] | | | | | | | | +--------+ + + + + | 02/25/ | Office | Cardiac | Randy Figueroa, | | | 2017 | Visit | Rehabilitation | MD Javid Crespo | | | | | | [place], | | | | | | [place] [address] | | | | | | [phone] | | | | | | | | +--------+ + + + + | 03/04/ | Office | Cardiac | Randy Figueroa, | | | 2017 | Visit | Rehabilitation | MD Javid Crespo | | | | | | [place], | | | | | | [place] [address] | | | | | | [phone] | | | | | | | | +--------+ + + + + | 03/11/ | Office | Cardiac | Randy Figueroa, | | | 2017 | Visit | Rehabilitation | [address] | | | | | | [place], | | | | | | [place] [address] | | | | | | [phone] | | | | | | | | +--------+ + + + + as of this encounter Visit Diagnoses + + | Diagnosis | + + | Ischemic cardiomyopathy | + + | Other specified forms of chronic ischemic heart disease | + +
--- OUTSIDE RECORDS SUMMARY | ~2017-12-16 | XMS | Encounter Summary ---
Demographics + + + | Address | [address] | | | [place] [address] | + + + | Home Phone [...] + | Author | [facility] | | | and [place] | + + + | Organization | [facility] | | | and [place] | + + + | Address | Unknown | + + + | Phone | Unavailable | + + + Support + + + + + | Name | Relationship | Address | Phone | + + + + + | [place] Will | ECON | [address] | | | | | #[place] | | | | | [address] | | + + + + + Care Team Providers + +------+ + | Care Tune Up Mechanic Name | Role | Phone | [...] + + | 11/26/ | [facility] | [facility] | Randy Figueroa, | Coronary artery | | 2018 | Visit | MED CTR CARDIAC | MD [address] | disease involving | | | | REHABILITATION [address] | [place], | [place] coronary | | | | [address] [place] | [place] [address] | artery of [place] | | | | [place] [address] | [phone] | heart without angina | | | | [phone] | | pectoris (Primary | | | [...] may be differ ent from the original. [facility] CARDIAC REHABIL[facility]ATION [address] [place] [address] Cardiac Rehab Date: 11/26/2017 Patient Information Patient Name: Bob Will Date of : 1955 Age: 62 y.o. Encounter Diagnoses Code Name Primary? I25.10 Coronary 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 involving [place] coronary artery of [place] heart without angina pectoris Yes Number of [...] en ded up in the hospital in [place]. Spent multiple days there. Any abnormal vital [...] | | | | | | [place] [address] | | | | | | [phone] | | | | | | | | +--------+ + + + + | 12/24/ | Office | Cardiac | Randy Figueroa, | | | 2017 | Visit | Rehabilitation | MD [address] | | | | | | [place], | | | | | | [place] [address] | | | | | | [phone] | | | | | | | | +--------+ + + + + | 12/31/ | Office | Cardiac | Randy Figuerao, | | | 2017 | Visit | Rehabilitation | MD [address] | | | | | | [place], | | | | | | [place] [address] | | | | | | [phone] | | | | | | | | +--------+ + + + + | 01/07/ | Office | Cardiac | Randy Figueroa, | | | 2017 | Visit | Rehabilitation | MD [address] | | | | | | [place], | | | | | | [place] [address] | | | | | | [phone] | | | | | | | [...] | | | | | | [place] [address] | | | | | | [phone] | | | | | | | | +--------+ + + + + | 01/14/ | Office | Cardiac | Randy Figueroa, | | | 2017 | Visit | Rehabilitation | MD Javid Crespo | | | | | | [place], | | | | | | [place] [address] | | | | | | [phone] | | | | | | | | +--------+ + + + + | 01/21/ | Office | Cardiac | Randy Figueroa, | | | 2017 | Visit | Rehabilitation | MD [address] | | | | | | [place], | | | | | | [place] [address] | | | | | | [phone] | | | | | | | | +--------+ + + + + | 01/28/ | Office | Cardiac | Randy Figueroa, | | | 2017 | Visit | Rehabilitation | MD [address] | | | | | | [place], | | | | | | [place] [address] | | | | | | [phone] | | | | | | | | +--------+ + + + + | 02/04/ | Office | Cardiac | Randy Figueroa, | | | 2017 | Visit | Rehabilitation | MD [address] | | | | | | [place], | | | | | | [place] [address] | | | | | | [phone] | | | | | | | | +--------+ + + + + | 02/11/ | Office | Cardiac | Randy Figueroa, | | | 2017 | Visit | Rehabilitation | MD Javid Crespo | | | | | | [place], | | | | | | [place] [address] | | | | | | [phone] | | | | | | | | +--------+ + + + + | 02/18/ | Office | Cardiac | Randy Figueroa, | | | 2017 | Visit | Rehabilitation | MD Javid Crespo | | | | | | [place], | | | | | | [place] [address] | | | | | | [phone] | | | | | | | | +--------+ + + + + | 02/24/ | Procedure | Physical Medicine | Prosper Esteves | | | 2017 | visit | and Rehabilitation | MD [address] | | | | | | [place] | | | | | | [address] | | | | | | | | +--------+ + + + + | 02/25/ | Office | Cardiac | Randy Figueroa, | | | 2017 | Visit | Rehabilitation | MD [address] | | | | | | [place], | | | | | | [place] [address] | | | | | | [phone] | | | | | | | | +--------+ + + + + | 03/04/ | Office | Cardiac | Randy Figueroa, | | | 2017 | Visit | Rehabilitation | MD [address] | | | | | | [place], | | | | | | [place] [address] | | | | | | [phone] | | | | | | | | +--------+ + + + + | 03/11/ | Office | Cardiac | Randy Figueroa, | | | 2017 | Visit | Rehabilitation | MD [address] | | | | | | [place], | | | | | | [place] [address] | | | | | | [phone] | | | | | | | | +--------+ + + + + as of this encounter Visit Diagnoses + + | Diagnosis | + + | Coronary 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 involving [place] coronary artery of [place] heart without angina | | pectoris - Primary | + +"
--- OUTSIDE RECORDS SUMMARY | ~2017-12-16 | XMS | Clinical Summary ---
Demographics + + + | Address | [address] [place] [address] [address] | | | [place] [address] | + + + | Home Phone [...] | | | | | [place] [address] | | + + + + + Care Team Providers + +------+ + | Care Reconciliation Accountant Name | Role | Phone | + +------+ + | Chato Matson MD | PP | | + +------+ + Source Comments EULOGIO is fully live on both [facility] Ambulatory and [facility] InPatient.[facility] Allergies No Known [...] resynchronization therapy | 10/17/2017 | | defibrillator (LICENSING AND REGISTRATION DIRECTOR-D) | | + + + | Influenza, [...] edema. 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 | | -secretions improving, cough strong -s/p [...] stayExtubated 03/22, started on | | NC D7Ydife infusion begun 03/22 for daily goal -1 [...] during cath | | lab procedure at [facility]. 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 | | [...] | and thus a | | | LICENSING AND REGISTRATION DIRECTOR-D was | | | placed. | | [...] | | EP 2/9, | | | LICENSING AND REGISTRATION DIRECTOR-D | | | -- | | | [...] | be noted on | | | LICENSING AND REGISTRATION DIRECTOR-D and | | | could | | [...] | on. EGD at | | | [facility] | | | on 10/05 | | [...] | | # Pre | | | [id number] | | | 5.6 on | | [...] | Wound check | | | from LICENSING AND REGISTRATION DIRECTOR-D | | | | | | placement2. [...] | | | Hansa | | | [place], | | | ACNP. Go | | [...] | | | CLINICS | | | [id number] | | | [address] | | | [address] | | | [place] | | | [id number] | | | [phone] | | | Hansa | | | [place], | | | ACNP. Go | | [...] | | | CLINICS | | | [id number] | | | [address] | | | [address] | | | [place] | | | [id number] | | | [phone] | | | [...] | | 25 mg | | | [id number] | | | y known as: | [...] | CR 30 mg | | | [id number] | | | y known as: | [...] | | mm Resolute | | | May | | | drug-elutin | | | [...] | | | us:Phone: | | | [phone] | | | 0 | | | Cardiology | | | Division | | | Office | | | | | | [phone] | | | 0 | | | [...] | | | lar | | | [place] | | | [place] | | | Health & | | [...] | | | HANDY | | | [id number] | | Tejal Pettit MD | | | | | | X / | | | | | | | | /[id number] | | | | | | | | [address] | + +------+--------+ +--------+--------+--------+ Results CAPILLARY BLOOD [...] TESTS [address] | | | [place] [address] | + + + X-RAY CHEST 2 [...] Note | + + | Service Account, [employer] In Interface - 10/17/2017 7:51 AM PST [...] [facility] CORE [address] [place] [address] | | | [place] [address] | + + + BASIC METABOLIC SET [...] | >60 | >60 mL/min | | [place] | | | + + + + | EGFR NON | 51 (L) | >60 mL/min | | -[place]IZ[place] | | | + + + + [...] [facility] CORE [address] [facility] | | | [place], [place] [address] | + + + + + | [...] | | ------ CBC (HEMOGRAM) | | ONLY[[id number]] Abnormal Final | | result Please view [...] | Narrative | + + | STUDY: VA CHEST 1 VIEW HISTORY: Evaluated lead placement. COMPARISON: | | STUDY: VA CHEST 1 VIEW FINDINGS: A new left [...] Note | + + | Service Account, [employer] In Interface - 10/17/2017 7:51 AM PST STUDY: VA CHEST 1 | | VIEWHISTORY: Evaluated lead placement.COMPARISON: STUDY: VA CHEST 1 VIEWFINDINGS: A | | new [...] procedure. | | He is candidate for LICENSING AND REGISTRATION DIRECTOR-D since he as class 2 baseline heart failure and currently | | class 3 heart failure with LBBB 152 msec. 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 No Pacemaker dependent: No | | Method of sedation: Conscious sedation - Anesth provider Response to | | sedation: Normal Fluoroscopy time (see log): 45-47 minutes | | MEDICATIONS: See anesthesia log and oil laboratory analyst log INTAKE AND OUTPUT: 1000 ml | [...] DEVICE INFORMATION: | | BiV-ICD pulse generator: Still Operator Helper: [employer] Model number: [id number] | | Serial number: [id number] RA lead: Still Operator Helper: [employer] Model number: | | [id number] Serial number: [id number] RV lead: Still Operator Helper: [employer] | | Model number: [id number] Serial number: [id number] CS lead: | | Still Operator Helper: [employer] Model number: [id number] Serial number: [id number] | | MEASURED PARAMETERS: RA lead: P [...] | Fellow Division of Cardiovascular Medicine [facility] | | Pager [phone] Pursuant to Federal Medicare requirements, I certify that I, Sophie | | Wilner BREWER, was present for the entire procedure, performed all critical elements, and | | participated directly in the generation of this report. Sophie Darby MD | | Cardiovascular Medicine - Electrophysiology [facility] Cardiovascular [place] [facility] | | | + + VBG-FULL ABL, [...] Laboratory | + + + | | [facility] TESTS [address] | | | [place] [address] | + + + INTRAPROCEDURE IMAGING (10/16/2017 [...] Laboratory | + + + | | [facility] [address] [place] [address] | | | [place] [address] | + + + CARDIAC CATH (10/15/2017 2:11 PM) + + | Procedure Note | + + | Tejal Modi MD - 10/15/2017 2:11 PM PST DATE OF PROCEDURE:October 15, | | 2018PERFORMING PHYSICIAN:Tejal Modi [facility] ATTENDING:Mike Bray MDThere was no | [...] 110 mL.FLUOROSCOPY TIME:17.8 minutes.FLUOROSCOPY | | DAP:7406.0 zIymo3CIKFQIVBZXNQ:1. Left ventricular pressure 91/23 mmHg.2. Aortic | [...] with one 3.0 x 18 mm Resolute May drug-eluting stent. Successful | | percutaneous coronary [...] | | 10/15/2017 13:25:02DT: 10/15/2017 14:11:10Job #: [id number] | |2. Lesion type: C. | |3. [...] with one 3.0 x 18 mm Resolute May drug-eluting stent. Successful percutaneous coronary transluminal angio [...] |BCN/MODL | | | | | | /[id number] | + + ACT, POC-CCL ONLY (10/15/2017 [...] | + + + | Blood | [facility], POINT OF CARE TESTS [address] | | | [place] [address] | + + + MACHINE PAN GREASER EMERGENT/IMMEDIATE PROCEDURE (10/15/2017 11:00 AM) + + | Narrative | + + | Procedure performed in the Cardiac Photographer Apprentice. See procedure notes for details. | + [...] [facility] CORE [address] [facility] [address] | | | [place], [place] [address] | + + + + + | [...] | | significant tracer uptake within the mbi-mu-mveovw anterior wall/interventricular septum | | and apex [...] Note | + + | Service Account, [employer] In Interface - 10/14/2017 5:47 PM PST [...] significant tracer | | uptake within the slo-yn-sgvcla anterior wall/interventricular septum and apex | | corresponding to same non-perfused areas seen on myocardial rest perfusion scan, | | compatible with nonviable myocardium in these regions. I have personally reviewed the | | images and, if necessary, edited the report. I agree with the report as now presented. | |No significant tracer uptake within the mzr-ww-gfotqz anterior wall/interventricular septum and apex corresponding to [...] Laboratory | + + + | | Primary Data RADIOLOGY VOICE RECOGNITION | + + + [...] Note | + + | Service Account, [employer] In Interface - 10/13/2017 5:30 PM [...] + + + | Blood | [facility], CORE [address] [facility] | | | [place] [address] | + + + + + | [...] Narrative | + + | Report ====== Catering Chef: Rodríguez Fortune ([id number]), shubham lockhart Outside Machinist Helper: shubham | | richy Fellow: shubham lockhart Fishing Tool Technician Oil Well: shubham lockhart Viewer: shubham | | richy Report Date: 16 Oct 2017, 09:22:25 [facility] Patient ------- Patient: | | RON MCKEON Acc #: [id number] | | Ethnicity: N Status: Final Report [...] Formula) | | Image Quality: Good Scanner Still Operator Helper: fake company 2.0 Scanner Model: AirXP | | Scanner Serial Number: [id number] Scanner Software Platform: 5.3.15.3.1.0 Staff: Rodríguez | | Tong Modality: MR Indication Name: routine Protocol Name: CMR W Flows WO Contrast | | Findings -------- Non-cardiac findings were reviewed by Dr. Curtis. This exam was | | terminated prematurely and is lmiited to nutrition services manager images. There are bilateral pleural | | [...] - 10/16/2017 9:22 AM PST | | Report======Catering Chef: Rodríguez Tong ([id number]), shubham Rodriguezalyst: shubham | | richyFellow: shubham Garciaechnician: shubham Johniewer: shubham | | jadarkomReport Date: 16 Oct 2017, 09:22:25 PSTPatient-------Patient: RON MCKEON | | JMedical Record Number: [id number] ID: [id number] #: [id number]: NStatus: | | Final ReportReport Number: [id number]: MaleBirthdate: 1955 (61 yrs)Study Date: 05 | | Oct 2017Study Description: CMR with Flows with ContrastReferring Physician: KHURRAM | | HEITNERBlood Pressure: /Heart rate:Height (cm): 0Weight (kg): 89BMI (kg/m ): 0BSA | | (m ): 0 (Mosteller Formula)Image Quality: [place] [email or web address] Still Operator Helper: [employer] | | Rebtel Model: Zuberance Serial Number: [id number] Software Platform: | | 5.3.15.3.1.0Staff: Rodríguez FortuneModality: MRIndication Name: routineProtocol Name: | | CMR W Flows WO ContrastFindings--------Non-cardiac findings were reviewed by | | Fusmoon.This exam was terminated prematurely and is lmiited to nutrition services manager images.There are | | bilateral pleural [...] Formula) | |Image Quality: Good | |Scanner Still Operator Helper: fake company 2.0 | |Scanner Model: AirXP | |Scanner Serial Number: [id number] | |Scanner Software Platform: 5.3.15.3.1.0 | |Staff: Rodríguez Fortune | |Modality: MR | |Indication Name: routine | |Protocol Name: CMR W Flows WO Contrast | |Findings | |-------- | |Non-cardiac findings were reviewed by Dr. Curtis. | |This exam was terminated prematurely and is lmiited to nutrition services manager images. | |There are bilateral pleural [...] | + + + | Sputum | [facility] [address] [place], [place] | | | [address] | + + + + + | Narrative | + + | Culture Report: This culture has been discontinued. Gram Stain: Squamous | | epithelial cells in the specimen indicate the presence of significant oropharyngeal | | contamination. CRITICAL RESULTS Results called to and verified by: Vicki | | Amy at phone # [facility] on: 10/12/2017 8:10:02 AM PST by: [id number] | + + HEMOGLOBIN A1C, BLOOD (10/11/2017 [...] | + + + | Blood | [facility] IMM + COAG [address] [facility] | | | [place] [address] | + + + + + | [...] should be considered for | | monitoring ferry terminal agent glycemic control in patients with: Increased red [...] Laboratory | + + + | | [facility] [address] [place] [address] | | | [place] [address] | + + + + + | Narrative | + + | [facility] Echocardi[facility] | | [address] [place], [place] [address] Ph: | | Pt Name: RON MCKEON Study | | Date/Time 10/11/2017 / 11:47:35 AM | | Most recent prior: 03/30/2017 Acc #: [id number] No. previous | | echos: 4 : 1955 61 years Heart Rate: 84 bpm | | Height: 69.0 in Blood Pressure: 115/68 mm/Hg | | Weight: 196.0 lb Gender: M | | BSA: 2.05 m2 Order ID: [id number] | | Otm Consultant: Shahab Sutton [facility] Referring Provider: Kimmy Low Patient [...] use disorder who presents on transfer from [place] for consideration of | | complex PCI [...] | Wall Scoring: Report electronically signed by: [id number] Khurram Bedoya MD | | (10/11/2017, 12:59:49 PM) Final (Updated) | + + + + | Procedure Note | + + | Interface, Ecg Results - 10/11/2017 1:00 PM [facility] | | [facility] Echocardi[facility] Laboratory [address] [place] [address] | | [place], [place] [address] Pt Name: RON Chaudhary | | MIKE Study Date/Time 10/11/2017 / 11:47:35 AMMRN: [id number] Most | | recent prior: 03/30/2017Acc #: [id number] No. previous echos: 4DOB: | | 1955 61 years Heart Rate: 84 bpmHeight: 69.0 in Blood | | Pressure: 115/68 mm/HgWeight: 196.0 lb Gender: MBSA: | | 2.05 m2 Order ID: [id number] Otm Consultant: Shaahb Sutton RDCSReferring | | Provider: Kimmy LowPatient [...] use disorder who presents on transfer from [place] | | for consideration of complex PCI [...] Ao (prox) | | 3.70 cm 18.1 mm/w3Gjzdicbzgr of chamber size and geometry is accomplished | | through the incorporation of linear, volumetric, and indexed values Wall Scoring: Report | | electronically signed by: [id number] Khurram Bedoya MD (10/11/2017, 12:59:49 PM) | [...] | | | |Report electronically signed by: [id number] Khurram Bedoya MD (10/11/2017, 12:59:49 | |PM) [...] [facility] CORE [address] | | | [place] [address] | + + + + + | [...] | >60 | >60 mL/min | | [place] | | | + +---------+ + | EGFR NON | >60 | >60 mL/min | | -[place] | | | + +---------+ + | [...] [facility] CORE [address] | | | [place] [address] | + + + + + | [...] | + + + | Blood | [facility], CORE [address] [facility] | | | [place] [address] | + + + + + | [...]
--- OUTSIDE RECORDS SUMMARY | ~2017-12-16 | XMS | Encounter Summary ---
Demographics + + + | Address | [address] | | | [place] [address] | + + + | Home Phone [...] | Author | [facility] | + + + | Organization | [facility] | + + + | Address | Unknown | + + + | Phone | Unavailable | + + + Support + + + + + | Name | Relationship | Address | Phone | + + + + + | ANNA MCKEON | ECON | [address] | | | | | [place] [address] | | + + + + + Care Team Providers + +------+ + | Care Lieutenant/Deputy Name | Role | Phone | + [...] Pharmacy | | | | | | [address] | | | | | | [facility] | | | | | | [place], [place] | | | | | | [address] | | | +--------+ + + + [...]
--- OUTSIDE RECORDS SUMMARY | ~2017-12-16 | XMS | Encounter Summary ---
Demographics + + + | Address | [address] | | | [place] [address] | + + + | Home Phone [...] | Author | [facility] | | | and [place] | + + + | Organization | [facility] | | | and [place] | + + + | Address | Unknown | + + + | Phone | Unavailable | + + + Support + + + + + | Name | Relationship | Address | Phone | + + + + + | Venice Hood | ECON | [address] | | | | | #[place] | | | | | [address] | | + + + + + Care Team Providers + +------+ + | Care Embedded Hardware Engineer Name | Role | Phone [...] | | | | | [address] | | | | | | [place] | | | | | | [address] | | | | | | [phone] | | | +--------+---------+ + + + [...] Date of Discharge: 10/10/2017 Admitting Physician: Herman Masetrson MD PCP: Chato Matson Discharging Physician: Destinee Trejo Consultants: Dr. Mobley (cardiology) Primary Discharge Dx: 1. Acute hypoxic respiratory failure thought to be from septic shock 2/2 Pneumonia/influen za requiring Mechanical vent. s/p extubation on 10/05 2. Acute on chronic systolic CHF exacerbation. Improving. 3. NSTEMI in the setting of known severe ischemic CAD/recent ant wall OR in 03/2017 c/b card iogenic shock s/p ECMO in [facility] 4. Paroxysmal atrial flutter Patient Active Problem List Diagnosis Acute anterior wall OR CAD (coronary 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) Ischemic cardiomyopathy Pulmonary [...] history of CAD with recent anterior wall OR, post PTCA and st ents of the left main, LAD and LCx on 03/15/17 + left atrial appendage thrombus c/b cardiac sh ock/respiratory failure requiring Tx to [facility]; was on ECMO, who was a [...] ceftriaxone, azithromycin and tamiflu. He underwen t [facility] on 10/03- severe in-stent stenosis of [...] is resolving. Dr. Mobley discussed with Sonido ulogkayla at [facility] but patient refused to go to [place] for re-vascu larization. He preferred to go to [facility]. Dr. Mobley discussed with Dr. Bedoya at [facility] and he was accepted by him. [...] of known severe ischemic CAD/recent ant wall OR in 03/2017 c/b sonido iogenic shock s/p ECMO in [facility] - troponin peaked to 26 - [facility] on 10/03- severe in-stent stenosis of [...] - Dr. Mobley discussed with Cardiology at [facility] and was accepted at [facility] for re-vascularization but patient refused and wanted to be transferred to [facility]. Dr. Mobley discussed with cardiology at [facility] and was accepted by them. - [...] results on DC: None Disposition: Transfer to [facility] cardiology service Dr. Bedoya accepting physician Discharge Procedure Orders Transfer patient to other facility Order Comments: [facility] when bed is available. Code Status/Advance Directive (Pertinent discussions/declarations): Full Code Time spent on Discharge and Coordination of post-hospital care: >30 minutes Electronically signed by: Destinee Trejo, 10/10/2017 15:01 [facility] in this encounter Medications at [...] to bedside, patient to g o to [facility], wants to get better and do the procedure. RN to inform Electronically signed b y: Rhea Ventura RN 10/10/2017 14:00 Rhea Oneal RN - 10/10/2017 [address] Millington at bedside to explain to the patient about leaving against medical advice, wallace ent verbalizing that we have done many interventions and that it is not a safe choice. RN at bedside, patient understands consequences and that he is leaving against medical advice. El ectronically signed by: Rhea Ventura RN 10/10/2017 13:08 Delmer Mobley MD - 10/09/2017 1731 PSTFormatting of this note may be different [...] The patient will be transferred today to [facility] for coronary revascularization. MEDICATIONS: Current Facility-Administered Medications [...] atypical infectious process. Dictated and Signed by: Alni Ramírez MD Electronically signed: 10/03/2017 12:41 PM [...] on amiodarone PLAN OR RECOMMENDATIONS: Transfer to [facility] audiology service Dr. Segura accepting physician I appreciate the opportunity of participating in the care of this patient. Delmer Mobley MD, 10/09/2017 15:00 Destinee Trejo MD - 10/09/2017 0816 PSTFormatting of this note may be different from the original. [facility] Hospitalist Progress Note Bob Hood is a 61 y.o. male INTERVAL HPI: He is a 61 y.o. male with a history of CAD with recent anterior wall OR, post PTCA and sten ts of the left main, LAD and LCx on 03/15/17 + left atrial appendage thrombus c/b cardiac shoc k/respiratory failure requiring Tx to [facility]; was on ECMO, who was a transfer this time from [facility] on 10/03 for acute respiratory failure [...] of known severe ischemic CAD/recent ant wall OR in 03/2017 c/b card iogenic shock s/p ECMO in [facility] - troponin peaked to 26 - [...] Mobley will consult with cardiology team at [facility] Re: planning for revascularization today 4. Paroxysmal [...] as outlined above. Destinee Trejo 10/09/2017 8:16 [facility] Destinee Trejo MD - 10/08/2017 1220 PSTFormatting of this note may be different from the original. [facility] Hospitalist Progress Note Bob Hood is a 61 y.o. male INTERVAL HPI: He is a 61 y.o. male with a history of CAD with recent anterior wall OR, post PTCA and sten ts of the left main, LAD and LCx on 03/15/17 + left atrial appendage thrombus c/b cardiac shoc k/respiratory failure requiring Tx to [facility]; was on ECMO, who was a transfer this time from [facility] on 10/03 for acute respiratory failure [...] % on high-flow nasal ca nnula, heated, swimming pool servicer system at flow rate 14L/min Temp Min: [...] of known severe ischemic CAD/recent ant wall OR in 03/2017 c/b card iogenic shock s/p ECMO in [facility] - troponin peaked to 26 - [facility] on 10/03- severe in-stent stenosis of [...] Mobley will consult with cardiology team at [facility] Re: planning for revascularization today 4. Paroxysmal [...] as outlined above. Destinee Trejo 10/08/2017 12:20 [facility] Destinee Trejo MD - 10/07/2017 1438 PSTFormatting of this note may be different from the original. [facility] Hospitalist Progress Note Bob Hood is a 61 y.o. male INTERVAL HPI: He is a 61 y.o. male with a history of CAD with recent anterior wall OR, post PTCA and sten ts of the left main, LAD and LCx on 03/15/17 + left atrial appendage thrombus c/b cardiac shoc k/respiratory failure requiring Tx to [facility]; was on ECMO, who was a transfer this time from [facility] on 10/03 for acute respiratory failure [...] of known severe ischemic CAD/recent ant wall OR in 03/2017 c/b card iogenic shock s/p ECMO in [facility] - troponin peaked to 26 - [facility] on 10/03- severe in-stent stenosis of [...] Mobley will consult with cardiology team at [facility] Re: planning for revascularization 4. Paroxysmal atrial [...] as outlined above. Destinee Trejo 10/07/2017 14:38 [facility] Delmer Mobley MD - 10/07/2017 1207 [...] RECOMMENDATIONS: Continue current medical management We'll contact [facility] regarding transfer and revascularization plann ing [...] orally BID Carlos Graham PharmD 10/07/2017 9:59 [facility] IV TO PO Collaborative Practice Protocol [...] troponin Will consult with cardiology team at [facility] regarding planning for coronary revascularization prior to discharge home I appreciate the opportunity of participating in the care of this patient. Delmer Mobley MD, 10/06/2017 17:17 Destinee Trejo MD - 10/06/2017 1245 PSTFormatting of this note may be different from the original. [facility] Hospitalist Progress Note Bob Hood is a 61 y.o. male INTERVAL HPI: He is a 61 y.o. male with a history of CAD with recent anterior wall OR, post PTCA and sten ts of the left main, LAD and LCx on 03/15/17 + left atrial appendage thrombus c/b cardiac shoc k/respiratory failure requiring Tx to [facility]; was on ECMO, who was a transfer this time from [facility] on 10/03 for acute respiratory failure [...] 95 % on high-flow nasal can nula, swimming pool servicer system, heated at flow rate 14L/min Temp [...] now present Confirmed by ZOHRA BREWER, FLORY ([id number]) on 10/06/2017 7:17:27 AM POC Glucose Result [...] of known severe ischemic CAD/recent ant wall OR in 03/2017 c/b card iogenic shock s/p ECMO in [facility] - troponin peaked to 26 - [facility] on 10/03- severe in-stent stenosis of [...] as outlined above. Destinee Trejo 10/06/2017 12:45 [facility] Clinton Burnett MD - 10/05/2017 7751 PSTHospitalist follow-up At approximately 4 PM, there'll [...] OPACITIES DISCUSSED. Dictated and Signed by: Jai DeL a Rosa MD Electronically dave d: 10/05/2017 8:44 [...] anti platelet therapyClinton Burnett MD - 10/05/2017 0917 PSTFormatting of this note may be different from the original. [facility] Hospitalist Progress Note Bob Hood is [...] as outlined above. Clinton Burnett 10/05/2017 9:39 [facility] Portions of this chart may have been created with [employer] voice recognition software. Occasi onal wrong-word or sound-alike substitutions may have occurred due to the inherent canseco itations of voice recognition software. Please read the chart carefully and recognize, using context, where these substitutions have occurred Clinton Burnett MD - 10/04/2017 1241 PSTFormatting of this note may be different from the o riginal. [facility] Hospitalist Progress Note Bob Hood is [...] as outlined above. Clinton Burnett 10/04/2017 12:42 [facility] Portions of this chart may have been created with [employer] voice recognition software. Occasi onal wrong-word or [...] 0.4 mg Sublingual Q5 Min PRN Delmer aDi MD norepinephrine in NS (LEVOPHED) 16 mcg/mL infusion 1-30 mcg/min Intravenous Titrated Anette Lind MD Stopped at 10/03/172124 oseltamivir (TAMIFLU) 6 mg/mL suspension 30 mg 30 mg Per OG Tube BID Ganga Lind MD 30 mg at 10/04/17 08 [...] :consider ischemia/infarction Confirmed by ZOHRA BREWER, FLORY ([id number]) on 10/04/2017 10:35:54 AM Influenza A PCR [...] 10/03/2017 5.0 5.0 - 8.0 Final Specific [place] 10/03/2017 1.006 1.001 - 1.030 Final PROTEIN [...] due to: Intubated X Pharmacy list names: [facility] and [facility] X [employer] insurance reported information X [...] as needed for suspected pain medication overdose Moqdrqq-vqhopzbjjhavc-kodbaiqj 250-250-65 mg tab 1 tab by mouth [...] Prior to Admission Sig: Patient taking differently GLUER AND WEDGER as: Lisinopril 5 mg tab 15 mg by mouth daily 5 mg by mouth every morning and 10 mg every eveni ng Medication review performed and electronically signed by Melody Falcon, Application Systems Architect 20:26 Reviewed by Kelly Pitts, PharmD 10/03/2017 21:22 Delmer Mobley MD - 10/03/2017 7450 PSTCARDIOLOGY FOLLOW-UP PROGRESS NOTE The patient was [...] | | | | | | [place] [address] | | | | | | [phone] | | | | | | | | +--------+ + + + + | 12/24/ | Office | Cardiac | Randy Figueroa, | | | 2017 | Visit | Rehabilitation | MD [address] | | | | | | [place], | | | | | | [place] [address] | | | | | | [phone] | | | | | | | | +--------+ + + + + | 12/31/ | Office | Cardiac | Randy Figueroa, | | | 2017 | Visit | Rehabilitation | MD [address] | | | | | | [place], | | | | | | [place] [address] | | | | | | [phone] | | | | | | | | +--------+ + + + + | 01/07/ | Office | Cardiac | Randy Figueroa, | | | 2017 | Visit | Rehabilitation | MD [address] | | | | | | [place], | | | | | | [place] [address] | | | | | | [phone] | | | | | | | [...] | | | | | | [place] [address] | | | | | | [phone] | | | | | | | | +--------+ + + + + | 01/14/ | Office | Cardiac | Randy Figueroa, | | | 2017 | Visit | Rehabilitation | MD [address] | | | | | | [place], | | | | | | [place] [address] | | | | | | [phone] | | | | | | | | +--------+ + + + + | 01/21/ | Office | Cardiac | Randy Figueroa, | | | 2017 | Visit | Rehabilitation | MD [address] | | | | | | [place], | | | | | | [place] [address] | | | | | | [phone] | | | | | | | | +--------+ + + + + | 01/28/ | Office | Cardiac | Randy Figueroa, | | | 2017 | Visit | Rehabilitation | MD [address] | | | | | | [place], | | | | | | [place] [address] | | | | | | [phone] | | | | | | | | +--------+ + + + + | 02/04/ | Office | Cardiac | Randy Figueroa, | | | 2017 | Visit | Rehabilitation | MD [address] | | | | | | [place], | | | | | | [place] [address] | | | | | | [phone] | | | | | | | | +--------+ + + + + | 02/11/ | Office | Cardiac | Randy Figueroa, | | | 2017 | Visit | Rehabilitation | MD [address] | | | | | | [place], | | | | | | [place] [address] | | | | | | [phone] | | | | | | | | +--------+ + + + + | 02/18/ | Office | Cardiac | Randy Figueroa, | | | 2017 | Visit | Rehabilitation | MD [address] | | | | | | [place], | | | | | | [place] [address] | | | | | | [phone] | | | | | | | | +--------+ + + + + | 02/24/ | Procedure | Physical Medicine | Prosper Esteves | | | 2017 | visit | and Rehabilitation | MD [address] | | | | | | [place] | | | | | | [address] | | | | | | | | +--------+ + + + + | 02/25/ | Office | Cardiac | Randy Figueroa, | | | 2017 | Visit | Rehabilitation | MD [address] | | | | | | [place], | | | | | | [place] [address] | | | | | | [phone] | | | | | | | | +--------+ + + + + | 03/04/ | Office | Cardiac | Randy Figueroa, | | | 2017 | Visit | Rehabilitation | MD [address] | | | | | | [place], | | | | | | [place] [address] | | | | | | [phone] | | | | | | | | +--------+ + + + + | 03/11/ | Office | Cardiac | Randy Figueroa, | | | 2017 | Visit | Rehabilitation | [place] [address] | | | | | | [place], | | | | | | [place] [address] | | | | | | [phone] | | | | | | | [...] + | Blood | [facility] [address] | | | [place] [address] | + + + POC Glucose (10/10/2017635) + +-------+ + | Component | Value | Ref Range | + +-------+ + | Glucose, POC | 108 | 70 - 109 mg/dL | + +-------+ + + + + | Specimen | Performing Laboratory | + + + | Blood | [facility] [address] | | | [place] [address] | + + + POC Glucose (10/09/20172041) + +---------+ + | Component | Value | Ref Range | + +---------+ + | Glucose, POC | 125 (H) | 70 - 109 mg/dL | + +---------+ + + + + | Specimen | Performing Laboratory | + + + | Blood | [facility] [address] | | | [place] [address] | + + + POC Glucose (10/09/2017 1659) + +-------+ + | Component | Value | Ref Range | + +-------+ + | Glucose, POC | 97 | 70 - 109 mg/dL | + +-------+ + + + + | Specimen | Performing Laboratory | + + + | Blood | [facility] [address] | | | [place] [address] | + + + POC Glucose (10/09/2017 1155) + +---------+ + | Component | Value | Ref Range | + +---------+ + | Glucose, POC | 148 (H) | 70 - 109 mg/dL | + +---------+ + + + + | Specimen | Performing Laboratory | + + + | Blood | [facility] [address] | | | [place] [address] | + + + POC Glucose (10/09/2017637) + +-------+ + | Component | Value | Ref Range | + +-------+ + | Glucose, POC | 109 | 70 - 109 mg/dL | + +-------+ + + + + | Specimen | Performing Laboratory | + + + | Blood | [facility] [address] | | | [place] [address] | + + + Extra Lavender Top Tube (10/09/2017 0505) + +-------+ + | Component | Value | Ref Range | + +-------+ + | Extra Lavender Top | Done | | | Tube | | | + +-------+ + + + + | Specimen | Performing Laboratory | + + + | Blood | [facility] [address] | | | [place] [address] | + + + Basic Metabolic Panel [...] GLOMERULAR FILTRATION | >=60 mL/min/1.73m2 | | MONTENEGRIN | RATE,ESTIMATED mL/min/1.12q1Mdyp than | | | | 60 Chronic [...] + + + | Blood | [facility] [address] | | | [place] [address] | + + + POC Glucose (10/08/20172110) + +---------+ + | Component | Value | Ref Range | + +---------+ + | Glucose, POC | 120 (H) | 70 - 109 mg/dL | + +---------+ + + + + | Specimen | Performing Laboratory | + + + | Blood | [facility] [address] | | | [place] [address] | + + + POC Glucose (10/08/20171656) + +-------+ + | Component | Value | Ref Range | + +-------+ + | Glucose, POC | 96 | 70 - 109 mg/dL | + +-------+ + + + + | Specimen | Performing Laboratory | + + + | Blood | [facility] [address] | | | [place] [address] | + + + POC Glucose (10/08/2017 111) + +---------+ + | Component | Value | Ref Range | + +---------+ + | Glucose, POC | 146 (H) | 70 - 109 mg/dL | + +---------+ + + + + | Specimen | Performing Laboratory | + + + | Blood | [facility] [address] | | | [place] [address] | + + + POC Glucose (10/08/2017627) + +-------+ + | Component | Value | Ref Range | + +-------+ + | Glucose, POC | 99 | 70 - 109 mg/dL | + +-------+ + + + + | Specimen | Performing Laboratory | + + + | Blood | [facility] [address] | | | [place] [address] | + + + POC Glucose (10/07/20172036) + +---------+ + | Component | Value | Ref Range | + +---------+ + | Glucose, POC | 115 (H) | 70 - 109 mg/dL | + +---------+ + + + + | Specimen | Performing Laboratory | + + + | Blood | [facility] [address] | | | [place] [address] | + + + POC Glucose (10/07/2017 1627) + +---------+ + | Component | Value | Ref Range | + +---------+ + | Glucose, POC | 110 (H) | 70 - 109 mg/dL | + +---------+ + + + + | Specimen | Performing Laboratory | + + + | Blood | [facility] [address] | | | [place] [address] | + + + POC Glucose (10/07/2017 1147) + +---------+ + | Component | Value | Ref Range | + +---------+ + | Glucose, POC | 114 (H) | 70 - 109 mg/dL | + +---------+ + + + + | Specimen | Performing Laboratory | + + + | Blood | [facility] [address] | | | [place] [address] | + + + POC Glucose (10/07/2017737) + +-------+ + | Component | Value | Ref Range | + +-------+ + | Glucose, POC | 104 | 70 - 109 mg/dL | + +-------+ + + + + | Specimen | Performing Laboratory | + + + | Blood | [facility] [address] | | | [place] [address] | + + + Magnesium (10/07/2017350) + +-------+ + | Component | Value | Ref Range | + +-------+ + | MG | 1.9 | 1.8 - 2.5 mg/dL | + +-------+ + + + + | Specimen | Performing Laboratory | + + + | Blood | [facility] [address] | | | [place] [address] | + + + Basic Metabolic Panel [...] GLOMERULAR FILTRATION | >=60 mL/min/1.73m2 | | MONTENEGRIN | RATE,ESTIMATED mL/min/1.65s4Ltte than | | | | 60 Chronic [...] + | Blood | [facility] [address] | | | [place] [address] | + + + CBC with Differential [...] + + + | Blood | [facility] [address] | | | [place] [address] | + + + POC Blood Gases [...] + + | | [facility] [address] | | | [place] [address] | + + + XR Chest AP [...] + | Blood | [facility] [address] | | | [place] [address] | + + + POC Glucose (10/06/20172040) + +-------+ + | Component | Value | Ref Range | + +-------+ + | Glucose, POC | 101 | 70 - 109 mg/dL | + +-------+ + + + + | Specimen | Performing Laboratory | + + + | Blood | [facility] [address] | | | [place] [address] | + + + Troponin I (10/06/2017 [...] | | | | Yuki Alan. [employer] | | | | Cardiology [...] + | Blood | [facility] [address] | | | [place] [address] | + + + POC Glucose (10/06/2017 1632) + +---------+ + | Component | Value | Ref Range | + +---------+ + | Glucose, POC | 130 (H) | 70 - 109 mg/dL | + +---------+ + + + + | Specimen | Performing Laboratory | + + + | Blood | [facility] [address] | | | [place] [address] | + + + POC Glucose (10/06/2017 112) + +---------+ + | Component | Value | Ref Range | + +---------+ + | Glucose, POC | 120 (H) | 70 - 109 mg/dL | + +---------+ + + + + | Specimen | Performing Laboratory | + + + | Blood | [facility] [address] | | | [place] [address] | + + + POC Glucose (10/06/201732) + +---------+ + | Component | Value | Ref Range | + +---------+ + | Glucose, POC | 110 (H) | 70 - 109 mg/dL | + +---------+ + + + + | Specimen | Performing Laboratory | + + + | Blood | [facility] [address] | | | [place] [address] | + + + XR Chest AP [...] + + + | Blood | [facility] [address] | | | [place] [address] | + + + Basic Metabolic Panel [...] GLOMERULAR FILTRATION | >=60 mL/min/1.73m2 | | MONTENEGRIN | RATE,ESTIMATED mL/min/1.80c0Wysd than | | | | 60 Chronic [...] + + + | Blood | [facility] [address] | | | [place] [address] | + + + CBC with Differential [...] + | Blood | [facility] [address] | | | [place] [address] | + + + POC Glucose (10/05/20172037) + +---------+ + | Component | Value | Ref Range | + +---------+ + | Glucose, POC | 126 (H) | 70 - 109 mg/dL | + +---------+ + + + + | Specimen | Performing Laboratory | + + + | Blood | [facility] [address] | | | [place] [address] | + + + ECG 12 lead [...] | | | | FLORY العلي MD ([id number]) on 10/06/2017 | | | | 7:17:27 [...] FLORY العلي MD | | | | ([id number]) on 10/07/2017 7:10:25 AM | | + [...] | + + + | | [facility] [address] | | | [place] [address] | + + + EGD (10/05/2017 105) + + + | Specimen | Performing Laboratory | + + + | | [facility] | + + + + + | Narrative | + + | Gastroenterology Patient Name: Bob Hood Procedure Date: 10/05/2017 10:56 AM | | Date of : 1955 Admit Type: | | Inpatient Age: 61 Room: [place] [address] Gender: Male Note Status: Finalized Attending MD: | | Terry Weir MD Procedure: Upper GI endoscopy | | Indications: Suspected upper gastrointestinal bleeding | | Providers: Terry Weir MD, Gil Tam RN, Elizabeth Patel | | ALFONSO Rivers, Siddharth Bradley CMA, [place] Campbell | | Babita, Rn Women Services, Yong Napier MD (Anesthesia | | Staff) [...] nurse, the anesthesiologist and the | | electrostatic powder coating technician in the procedure room. Mental Status [...] In: 11:00:34 AM Scope Out: 11:11:30 AM [facility] | | [facility], [address] [place] [phone] | + + XR Chest AP Portable [...] + + | Body Fluid | [facility] [address] | | | [place] [address] | + + + Procalcitonin (10/05/2017 0427) [...] + | Blood | [facility] [address] | | | [place] [address] | + + + Basic Metabolic Panel [...] GLOMERULAR FILTRATION | >=60 mL/min/1.73m2 | | MONTENEGRIN | RATE,ESTIMATED mL/min/1.70h4Hdly than | | | | 60 Chronic [...] | + + + | Blood | [facility] [address] | | | [place] [address] | + + + CBC with Differential [...] + | Blood | [facility] [facility] Javid Crespo | | | [place] [address] | + + + POC Glucose (10/04/20172111) + +-------+ + | Component | Value | Ref Range | + +-------+ + | Glucose, POC | 108 | 70 - 109 mg/dL | + +-------+ + + + + | Specimen | Performing Laboratory | + + + | Blood | [facility] Javid Crespo | | | [place] [address] | + + + XR Chest AP [...] + + + | Blood | [facility] Javid Crespo | | | [place] [address] | + + + ECG 12 lead [...] | | | | ZOHRA BREWER, FLORY ([id number]) on 10/05/2017 | | | | 7:23:04 [...] + | Blood | [facility] [address] | | | [place] [address] | + + + Extra Lavender Top Tube (10/04/2017 1443) + +-------+ + | Component | Value | Ref Range | + +-------+ + | Extra Lavender Top | Done | | | Tube | | | + +-------+ + + + + | Specimen | Performing Laboratory | + + + | Blood | [facility] [address] | | | [place] [address] | + + + Troponin I (10/04/2017 [...] | | | | previous results. [employer] | | | | Cardiology [...] + | Blood | [facility] Javid Crespo | | | [place] [address] | + + + Blood Gas, Arterial [...] + | Blood | [facility] Javid Crespo | | | [place] [address] | + + + + + | Narrative | + + | SIMV 16 TV 550, PS+ 10, PEEP +5, 40%, ETCO2 35 IXP090% | + + POC Glucose (10/04/2017 1223) + +-------+ + | Component | Value | Ref Range | + +-------+ + | Glucose, POC | 106 | 70 - 109 mg/dL | + +-------+ + + + + | Specimen | Performing Laboratory | + + + | Blood | [facility] Javid Crespo | | | [place] [address] | + + + CBC with Differential [...] + | Blood | [facility] Javid Crespo | | | [place] [address] | + + + Magnesium (10/04/2017 0343) + +-------+ + | Component | Value | Ref Range | + +-------+ + | MG | 1.9 | 1.8 - 2.5 mg/dL | + +-------+ + + + + | Specimen | Performing Laboratory | + + + | Blood | [facility] Javid Crespo | | | [place] [address] | + + + Basic Metabolic Panel [...] GLOMERULAR FILTRATION | >=60 mL/min/1.73m2 | | MONTENEGRIN | RATE,ESTIMATED mL/min/1.51c5Aqrg than | | | | 60 Chronic [...] | + + + | Blood | [facility] Cresp[facility] | | | [place] [address] | + + + Troponin I (10/03/20172327) [...] | | | | previous results. [employer] | | | | Cardiology [...] + | Blood | [facility] Javid Crespo | | | [place] [address] | + + + POC Glucose (10/03/20172145) + +---------+ + | Component | Value | Ref Range | + +---------+ + | Glucose, POC | 115 (H) | 70 - 109 mg/dL | + +---------+ + + + + | Specimen | Performing Laboratory | + + + | Blood | [facility] Javid Crespo | | | [place] [address] | + + + Basic Metabolic Panel [...] GLOMERULAR FILTRATION | >=60 mL/min/1.73m2 | | [place]IN | RATE,ESTIMATED mL/min/1.26q2Bufc than | | | | 60 Chronic [...] + + + | Blood | [facility] Crespo | | | [place] [address] | + + + Procalcitonin (10/03/2017 1545) [...] + | Blood | [facility] Javid Crespo | | | [place] [address] | + + + Troponin I (10/03/2017 [...] Juan Srinivasan. | | | | [employer] [place] ([employer]) | | | [...] + | Blood | [facility] Javid Crespo | | | [place] [address] | + + + CV CARDIAC PROCEDURE (10/03/2017 1518) + + | Narrative | + + | Delmer Dai MD 10/03/2017 16:25 CARDIAC CATHETERIZATION REPORT DATE | | OF PROCEDURE: 10/03/17 PRECATHETERIZATION INFORMED CONSENT : Yes | | TIMEOUT Before start of procedure done: Yes SLAB STRIPPER: Delmer Mobley M.D., | | Shannon PRIMARY PHYSICIAN: Chato Matson MD PROCEDURES PERFORMED: Left | | heart catheterization, selective coronary arteriography INDICATIONS | | : 61-year-old gentleman presenting with acute hypoxic respiratory failure, new left | | bundle branch block, increasing troponin levels, history of coronary artery PCI and | | prior anterior myocardial infarction ARTERIAL ACCESS: Right femoral artery 6 Bel[place]an | | CLOSURE DEVICE:. Sheath left in [...] Seldinger technique and a 6 | | [place]an sheath was inserted. Selective coronary arteriography was performed using 6 | | [place]an Kymberly right 4 and left 4 catheters. [...] instability we will transfer the patient to [facility] for consideration of | | urgent coronary revascularization. Delmer Mobley M.D., F.A.C.C. | | [place], [place] | | | + + Culture, Blood (10/03/20171314) + + + + | Component | Value | Ref Range | + + + + | Culture | No growth after 5 days incubation. | | + + + + + + + | Specimen | Performing Laboratory | + + + | Blood - Peripheral | [facility] [address] | | Blood | [place] [address] | + + + ECG 12 lead [...] ZOHRA BREWER, | | | | FLORY ([id number]) on 10/04/2017 10:35:54 AM | | | [...] + + + | Blood | [facility] Jaivd Crespo | | | [place] [address] | + + + XR Chest AP [...] + | Blood - Line | [facility] Javid Crespo | | | [place] [address] | + + + Slide Review, Peripheral [...] + + + | Blood | [facility] Crespo | | | [place] [address] | + + + + + | [...] + + + | Blood | [facility] Javid Crespo | | | [place] [address] | + + + Troponin I (10/03/20171128) [...] | | | | myocardial infarction. [employer] [place] [employer] | | | | of Cardiology [...] + | Blood | [facility] Javid MamtaFletcher Crespo | | | [place] [address] | + + + B Type Natriuretic Peptide (10/03/20171128) + +---------+ + | Component | Value | Ref Range | + +---------+ + | BNP | 495 (H) | <100 pg/mL | + +---------+ + + + + | Specimen | Performing Laboratory | + + + | Blood | [facility] Javid Crespo | | | [place] [address] | + + + Hepatic Function Panel [...] + | Blood | [facility] [address] | | | [place] [address] | + + + Protime INR (10/03/2017 [...] + | Blood | [facility] Javid Crespo | | | [place] [address] | + + + Basic Metabolic Panel [...] GLOMERULAR FILTRATION | >=60 mL/min/1.73m2 | | [place] | RATE,ESTIMATED mL/min/1.72z1Qtlz than | | | | 60 Chronic [...] + + + | Blood | [facility] [address] | | | [place] [address] | + + + CBC with Differential [...] + | Blood | [facility] Javid Crespo | | | [place] [address] | + + + ECHO Complete (10/03/2017 1118) + +-------+ + | Component | Value | Ref Range | + +-------+ + | LVEF-TTE | 39 | | | TRANSTHORACIC ECHO | | | + +-------+ + + + | Narrative | + + | Transthoracic Echocardiography Report (TTE) Demographics Patient | | Name MIKE VELASQUEZ Room Number 458 | | J Patient [id number] Date of | | Study 10/03/2017 Number Visit Number [id number] | | Referring Physician BENEDICT RAYGOZA Number | | Date of 1955 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IL[employer]ERT | | RAJIV HURLEY Age 61 year(s) | | Interpreting DELMER MOBLEY MD, | | E Learning Developer | | FACC Gender Male 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 | | Procedure Type of Study TTE [...] | Electronically signed by DELMER MOBLEY MD, [facility](Interpreting physician) on | | 10/03/2017 12:59 PM [...] 42.65 ml | | | | EF Kogzwbxlv70% Left Ventricle Diastolic Dimension: 5.92 cm Septum [...] | J | | | | Patient [id number] Date of Study 10/03/2017 | | Number | | | | Visit Number [id number] | | | | Referring Physician BENEDICT RAYGOZA | | Number | | | | Date of 1955 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 [facility] | | | | Age 61 year(s) Interpreting DELMER MOBLEY MD, | | E Learning Developer FACC | | | | Gender Male Nurse | | | | Stress Rn Women Services | | | | Procedure | | [...] | Electronically signed by DELMER MOBLEY MD, [facility](Interpreting | | physician) on 10/03/2017 12:59 PM [...] LA Volume: 42.65 ml | | EF Svktapiwr91% | | | | Left Ventricle | [...] + + + | Blood | [facility] Javid Crespo | | | [place] [address] | + + + Culture, MRSA (10/03/2017 1039) + + + + | Component | Value | Ref Range | + + + + | Culture | Negative for MRSA by chromogenic agar | | | | method | | + + + + + + + | Specimen | Performing Laboratory | + + + | Stool | [facility] Crespo | | | [place] [address] | + + + Culture, Respiratory, Lower, [...] + + | Respiratory - | [facility] Javid Crespo | | Sputum, expectorated | St [place] [address] | + + + Influenza A and [...] | Respiratory - | [facility] Javid Crespo | | Nasopharynx | [place] [address] | + + + Campylobacter Ag,Qual (10/03/2017 1039) + + + + | Component | Value | Ref Range | + + + + | Campylobacter AG, | Negative | Negative | | Qual | | | + + + + + + + | Specimen | Performing Laboratory | + + + | Stool | [facility] Crespo | | | [place] [address] | + + + Culture, Stool Result [...] + + + | Stool | [facility] [address] | | | [place] [address] | + + + Shigatoxin 1 and [...] + | Stool | [facility] [address] | | | [place] [address] | + + + Culture, Stool (10/03/2017 1039) + + + | Specimen | Performing Laboratory | + + + | Stool | [facility] Javid Crespo | | | [place] [address] | + + + + + | Narrative | + + | The following orders were created for panel order Culture, Stool. | | Procedure | | Abnormality Status | | --------- | | ------ Shigatoxin 1 | | and 2[[id number]] Normal Final | | result Culture, Stool | | Result[[id number]] Final | | result Campylobacter | | Ag,Qual[[id number]] Normal Final | | result Please view [...] + + + | Stool | [facility] Javid Crespo | | | [place] [address] | + + + Ova and Parasite [...] Stool | REFERENCE [facility] [address] [facility] | | | [place] [address] | + + + + + | Narrative | + + | Performed at: - [facility] [address] [id number] Lab | | Director: Yesenia Gee MD, Phone: [phone] | + + Fecal leukocytes (10/03/2017 1039) + + + + | Component | Value | Ref Range | + + + + | Lactoferrin, Qual | Negative | Negative | + + + + + + + | Specimen | Performing Laboratory | + + + | Stool | [facility] [address] | | | [place] [address] | + + + Urinalysis with Microscopic [...] | + + + + | Specific [place] | 1.006 | 1.001 - 1.030 | [...] + + + | Urine | [facility] Crespo | | | [place] [address] | + + + LABS - EXTERNAL [...] | | | | First dose on [facility] 10/08/17 at 0915 | | | [...] scheduled: AC, | | | NPO, Daytime 7667-5737 Use NIGHT | | | DOSE for doses scheduled: | | | HS, 3AM, Nighttime 4702-8371 | | + +---+ | | | [...]
--- OUTSIDE RECORDS SUMMARY | ~2017-12-16 | XMS | Encounter Summary ---
Demographics + + + | Address | [address] | | | [place] [address] | + + + | Home Phone [...] | | | | | [place] [address] | | + + + + + Care Team Providers + +------+ + | Care Electrical Timing Device Calibrator Name | Role | Phone | + [...] | 2018 | Encounter | Services at [facility] | | | | | | [address] [facility] | | | | | | [facility] | | | | | | Mailcode: L340 | | | | | | [facility]ly [facility] | | | | | | [place], [place] | | | | | | [address] | | | | | | [phone] | | | +--------+ + + + [...]
--- OUTSIDE RECORDS SUMMARY | ~2017-12-16 | XMS | Encounter Summary ---
Demographics + + + | Address | [address] | | | [place] [address] | + + + | Home Phone [...] | Author | [facility] | | | and [place] | + + + | Organization | [facility] | | | and [place] | + + + | Address | Unknown | + + + | Phone | Unavailable | + + + Support + + + + + | Name | Relationship | Address | Phone | + + + + + | [place] Will | [place] | [address] | | | | | [address] | | | | | [address] | | + + + + + Care Team Providers + +------+ + | Care Lead Ingot Molder Name | Role | Phone | + [...] + + | 09/25/ | Telephone | [facility] | Jenny, | Blood Pressure Check | | 2017 | | CARDIOLOGY [address] | [address] | (Screening) | | | | [place], | [place], | | | | | [place] [address] | [place] [address] | | | | | [phone] | [phone] | | | | | | | [...] | | | | | | [place] [address] | | | | | | [phone] | | | | | | | | +--------+ + + + + | 12/24/ | Office | Cardiac | Randy Figueroa, | | | 2017 | Visit | Rehabilitation | MD Javid Crespo | | | | | | [place], | | | | | | [place] [address] | | | | | | [phone] | | | | | | | | +--------+ + + + + | 12/31/ | Office | Cardiac | Randy Figueroa, | | | 2017 | Visit | Rehabilitation | MD Javid Crespo | | | | | | [place], | | | | | | [place] [address] | | | | | | [phone] | | | | | | | | +--------+ + + + + | 01/07/ | Office | Cardiac | Randy Figueroa, | | | 2017 | Visit | Rehabilitation | MD Javid Crespo | | | | | | [place], | | | | | | [place] [address] | | | | | | [phone] | | | | | | | | +--------+ + + + + | 01/13/ | Clinical | Cardiology | | | | 2017 | Support | | | | +--------+ + + + + | 01/13/ | Office | Cardiology | Jenny, | | | 2017 | Visit | | [address] | | | | | | [place], | | | | | | [place] [address] | | | | | | [phone] | | | | | | | | +--------+ + + + + | 01/14/ | Office | Cardiac | Randy Figueroa, | | | 2017 | Visit | Rehabilitation | MD [address] | | | | | | [place], | | | | | | [place] [address] | | | | | | [phone] | | | | | | | | +--------+ + + + + | 01/21/ | Office | Cardiac | Randy Figueroa, | | | 2017 | Visit | Rehabilitation | MD [address] | | | | | | [place], | | | | | | [place] [address] | | | | | | [phone] | | | | | | | | +--------+ + + + + | 01/28/ | Office | Cardiac | Randy Figueroa, | | | 2017 | Visit | Rehabilitation | MD [address] | | | | | | [place], | | | | | | [place] [address] | | | | | | [phone] | | | | | | | | +--------+ + + + + | 02/04/ | Office | Cardiac | Randy Figueroa, | | | 2017 | Visit | Rehabilitation | MD [address] | | | | | | [place], | | | | | | [place] [address] | | | | | | [phone] | | | | | | | | +--------+ + + + + | 02/11/ | Office | Cardiac | Randy Figueroa, | | | 2017 | Visit | Rehabilitation | MD [address] | | | | | | [place], | | | | | | [place] [address] | | | | | | [phone] | | | | | | | | +--------+ + + + + | 02/18/ | Office | Cardiac | Randy Figueroa, | | | 2017 | Visit | Rehabilitation | MD [address] | | | | | | [place], | | | | | | [place] [address] | | | | | | [phone] | | | | | | | | +--------+ + + + + | 02/24/ | Procedure | Physical Medicine | Prosper Esteves | | | 2017 | visit | and Rehabilitation | MD [address] | | | | | | [place] | | | | | | [address] | | | | | | | | +--------+ + + + + | 02/25/ | Office | Cardiac | Randy Figueroa, | | | 2017 | Visit | Rehabilitation | MD Javid Crespo | | | | | | [place], | | | | | | [place] [address] | | | | | | [phone] | | | | | | | | +--------+ + + + + | 03/04/ | Office | Cardiac | Randy Figueroa, | | | 2017 | Visit | Rehabilitation | MD Javid [address]respo | | | | | | [place], | | | | | | [place] [address] | | | | | | [phone] | | | | | | | | +--------+ + + + + | 03/11/ | Office | Cardiac | Randy Figueroa, | | | 2017 | Visit | Rehabilitation | MD Javid Crespo | | | | | | [place], | | | | | | [place] [address] | | | | | | [phone] | | | | | | | | +--------+ + + + + as of this encounter Visit Diagnoses Not on filein this encounter"
--- OUTSIDE RECORDS SUMMARY | ~2017-12-16 | XMS | Encounter Summary ---
Demographics + + + | Address | [address] | | | [place] [address] | + + + | Home Phone [...] | [facility] | | | and [place] | + + + | Organization | [facility] | | | and [place] | + + + | Address | Unknown | + + + | Phone | Unavailable | + + + Support + + + + + | Name | Relationship | Address | Phone | + + + + + | [place] Will | ECON | [address] | | | | | [address] | | | | | [address] | | + + + + + Care Team Providers + +------+ + | Care Syrup Blender Name | Role | Phone | + [...] [address] | | | | [place], | [place], | | | | | [place] [address] | [place] [address] | | | | | [phone] | [phone] | | | | | | | [...] Visit | Rehabilitation | MD [address] | | | | | | [place], | | | | | | [place] [address] | | | | | | [phone] | | | | | | | | +--------+ + + + + | 12/24/ | Office | Cardiac | Randy Figueroa, | | | 2017 | Visit | Rehabilitation | MD [address] | | | | | | [place], | | | | | | [place] [address] | | | | | | [phone] | | | | | | | | +--------+ + + + + | 12/31/ | Office | Cardiac | Randy Figueroa, | | | 2017 | Visit | Rehabilitation | MD [address] | | | | | | [place], | | | | | | [place] [address] | | | | | | [phone] | | | | | | | | +--------+ + + + + | 01/07/ | Office | Cardiac | Randy Figueroa, | | | 2017 | Visit | Rehabilitation | MD Javid Crespo | | | | | | [place], | | | | | | [place] [address] | | | | | | [phone] | | | | | | | [...] | | | | | | [place] [address] | | | | | | [phone] | | | | | | | | +--------+ + + + + | 01/14/ | Office | Cardiac | Randy Figueroa, | | | 2017 | Visit | Rehabilitation | MD Javid Crespo | | | | | | [place], | | | | | | [place] [address] | | | | | | [phone] | | | | | | | | +--------+ + + + + | 01/21/ | Office | Cardiac | Randy Figueroa, | | | 2017 | Visit | Rehabilitation | MD [address]av[address] | | | | | | [place], | | | | | | [place] [address] | | | | | | [phone] | | | | | | | | +--------+ + + + + | 01/28/ | Office | Cardiac | Randy Figueroa, | | | 2017 | Visit | Rehabilitation | MD [address] | | | | | | [place], | | | | | | [place] [address] | | | | | | [phone] | | | | | | | | +--------+ + + + + | 02/04/ | Office | Cardiac | Randy Figueroa, | | | 2017 | Visit | Rehabilitation | MD [address]avid [address]resp[address] | | | | | | [place], | | | | | | [place] [address] | | | | | | [phone] | | | | | | | | +--------+ + + + + | 02/11/ | Office | Cardiac | Randy Figueroa, | | | 2017 | Visit | Rehabilitation | MD [address]avid [address]resp[address] | | | | | | [place], | | | | | | [place] [address] | | | | | | [phone] | | | | | | | | +--------+ + + + + | 02/18/ | Office | Cardiac | Randy Figueroa, | | 2017 | Visit | Rehabilitation | MD [address]avid [address]respo | | | | | | [place], | | | | | | [place] [address] | | | | | | [phone] | | | | | | | | +--------+ + + + + | 02/24/ | Procedure | Physical Medicine | Prosper Esteves | | | 2017 | visit | and Rehabilitation | T, MD Art [address] | | | | | | [place], [place] | | | | | | [address] | | | | | | | | +--------+ + + + + | 02/25/ | Office | Cardiac | Randy Figueroa, | | | 2017 | Visit | Rehabilitation | MD [address]avid [address]respo | | | | | | [place], | | | | | | [place] [address] | | | | | | [phone] | | | | | | | | +--------+ + + + + | 03/04/ | Office | Cardiac | Randy Figueroa, | | | 2017 | Visit | Rehabilitation | MD [address]avid [address]resp[address] | | | | | | [place], | | | | | | [place] [address] | | | | | | [phone] | | | | | | | | +--------+ + + + + | 03/11/ | Office | Cardiac | Randy Figueroa, | | | 2017 | Visit | Rehabilitation | [address] | | | | | | [place], | | | | | | [place] [address] | | | | | | [phone] | | | | | | | | +--------+ + + + + as of this encounter Visit Diagnoses Not on filein this encounter"
--- OUTSIDE RECORDS SUMMARY | ~2017-12-16 | XMS | Encounter Summary ---
Demographics + + + | Address | [address] | | | [place] [address] | + + + | Home Phone [...] | Author | [facility] | | | and [place] | + + + | Organization | [facility] | | | and [place] | + + + | Address | Unknown | + + + | Phone | Unavailable | + + + Support + + + + + | Name | Relationship | Address | Phone | + + + + + | [place] Will | ECON | [address] | | | | | #[place] | | | | | [address] | | + + + + + Care Team Providers + +------+ + | Care Scooping Machine Tender Name | Role | Phone [...] | | | | | Ischemic | [place], | [address] | | | | | cardiomyopat | ADARSH Sy | [place], | | | | | hy | [address] | [place] | | | | | Procedures | [place] | [address] | | | | | ECHO | [place], | Phone: | | | | | Complete [place] | [place] | [phone] | | | | | ECHO HEART | [address] | Fax: | | | | | XTH[place]ACIC,[place] | Phone: | [phone] | | | | | MPLETE W | [phone] | | | | | | DOPPLER [place] | Fax: | | | | | | ECHO HEART | [phone] | | | | | | XTHORACIC,[place] [...] | | | | | Ischemic | [place], | [address] | | | | | cardiomyopat | ADARSH [address] | [place], | | | | | hy | [address] | [place] | | | | | Procedures | [place] | [address] | | | | | ECHO | [place], | Phone: | | | | | Complete [place] | [place] | [phone] | | | | | ECHO HEART | [address] | Fax: | | | | | [facility]THORACIC,[place] | Phone: | [phone] | | | | | MPLETE W | [phone] | | | | | | DOPPLER [place] | Fax: | | | | | | ECHO HEART | [phone] | | | | | | XTHORACIC,[place] [...] + + | 11/24/ | Hospital | [facility] | [place], | Ischemic | | 2018 | Encounter | MED CTR ECHO [address] | [address] | cardiomyopathy | | | | [place] | [place], | | | | | [place] [address] | [place] [address] | | | | | [phone] | [phone] | | | | | | | [...] | | | | | (VITAMIN D-3) [id number] | a week. | | | | [...] | | | | | | [place] [address] | | | | | | [phone] | | | | | | | | +--------+ + + + + | 12/24/ | Office | Cardiac | Lauren Figueroa, | | | 2017 | Visit | Rehabilitation | MD [address] | | | | | | [place], | | | | | | [place] [address] | | | | | | [phone] | | | | | | | | +--------+ + + + + | 12/31/ | Office | Cardiac | Lauren Figueroa, | | | 2017 | Visit | Rehabilitation | MD [address] | | | | | | [place], | | | | | | [place] [address] | | | | | | [phone] | | | | | | | | +--------+ + + + + | 01/07/ | Office | Cardiac | Lauren Figueroa, | | | 2017 | Visit | Rehabilitation | MD [address] | | | | | | [place], | | | | | | [place] [address] | | | | | | [phone] | | | | | | | | +--------+ + + + + | 01/13/ | Clinical | Cardiology | | | | 2017 | Support | | | | +--------+ + + + + | 01/13/ | Office | Cardiology | Jenny, | | | 2017 | Visit | | [address] | | | | | | [place], | | | | | | [place] [address] | | | | | | [phone] | | | | | | | | +--------+ + + + + | 01/14/ | Office | Cardiac | Lauren Figueroa, | | | 2017 | Visit | Rehabilitation | MD Javid Crespo | | | | | | [place], | | | | | | [place] [address] | | | | | | [phone] | | | | | | | | +--------+ + + + + | 01/21/ | Office | Cardiac | Lauren Figueroa, | | | 2017 | Visit | Rehabilitation | MD Javid Cresp[address] | | | | | | [place], | | | | | | [place] [address] | | | | | | [phone] | | | | | | | | +--------+ + + + + | 01/28/ | Office | Cardiac | Lauren Figueroa, | | | 2017 | Visit | Rehabilitation | MD [address] | | | | | | [place], | | | | | | [place] [address] | | | | | | [phone] | | | | | | | | +--------+ + + + + | 02/04/ | Office | Cardiac | Lauren Figueroa, | | | 2017 | Visit | Rehabilitation | MD [address] | | | | | | [place], | | | | | | [place] [address] | | | | | | [phone] | | | | | | | | +--------+ + + + + | 02/11/ | Office | Cardiac | Lauren Figueroa, | | | 2017 | Visit | Rehabilitation | MD [address] | | | | | | [place], | | | | | | [place] [address] | | | | | | [phone] | | | | | | | | +--------+ + + + + | 02/18/ | Office | Cardiac | Lauren Figueroa, | | | 2017 | Visit | Rehabilitation | MD Javid Crespo | | | | | | [place], | | | | | | [place] [address] | | | | | | [phone] | | | | | | | | +--------+ + + + + | 02/24/ | Procedure | Physical Medicine | Prosper Esteves | | | 2017 | visit | and Rehabilitation | MD [address] | | | | | | [place] | | | | | | [address] | | | | | | | | +--------+ + + + + | 02/25/ | Office | Cardiac | Lauren Figueroa, | | | 2017 | Visit | Rehabilitation | MD Javid Crespo | | | | | | [place], | | | | | | [place] [address] | | | | | | [phone] | | | | | | | | +--------+ + + + + | 03/04/ | Office | Cardiac | Lauren Figueroa, | | | 2017 | Visit | Rehabilitation | MD [address]av[address] [place] | | | | | | [place], | | | | | | [place] [address] | | | | | | [phone] | | | | | | | | +--------+ + + + + | 03/11/ | Office | Cardiac | Lauren Figueroa, | | | 2017 | Visit | Rehabilitation | MD [address] | | | | | | [place], | | | | | | [place] [address] | | | | | | [phone] | | | | | | | [...] (TTE) Demographics Patient Name | | MIKE DERRY Room Number J Patient Number | | [id number] Date of Study 11/24/2017 Visit Number | | [id number] Referring Physician | | THERESE SY Number Date of 1955 | | Cosmetic Manager TUCKER DOVE Age 62 | | year(s) Interpreting LAUREN FIGUEROA MD | | Horticulture Teacher | | Gender Male 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 Patent Searcher | | Procedure Type of Study TTE [...] Vol/BSA Index: 43 mL/m^2 EF | | [id number]% Left Ventricle Diastolic Dimension: 4.9 cm Septum Diastolic: | | 1.6 cm PW Diastolic: 1.4 cm Miscellaneous Aorta Aortic Root: 3.7 cm | | Ascending Aorta: 3.6 cm | + + + + | Procedure Note | + + | Clayton Cortes Results In 11/25/2017 0721 [facility] Transthoracic Echocardiography Report (TTE) | | | | Demographics | | | | Patient Name MIKE VELASQUEZ Room Number | | J | | | | Patient Number [id number] Date of Study 11/24/2017 | | | | Visit Number [id number] | | | | Referring Physician THERESE SY | | Number | | | | Date of 1955 Cosmetic Manager TUCKER DOVE | | | | Age 62 year(s) Interpreting LAUREN FIGUEROA MD | | Horticulture Teacher | | | | Gender Male Nurse | | | | Stress Patent Searcher | | | | Procedure | | [...] | LA Vol/BSA Index: 43 mL/m^2 EF Jkudeblcd48% | | | | Left Ventricle | [...]
--- OUTSIDE RECORDS SUMMARY | ~2017-12-16 | XMS | Encounter Summary ---
Demographics + + + | Address | [address] | | | [place] [address] | + + + | Home Phone [...] | Author | [facility] | | | and [place] | + + + | Organization | [facility] | | | and [place] | + + + | Address | Unknown | + + + | Phone | Unavailable | + + + Support + + + + + | Name | Relationship | Address | Phone | + + + + + | [place] Will | ECON | [address] | | | | | #[place] | | | | | [address] | | + + + + + Care Team Providers + +------+ + | Care Manager Talent Management Name | Role | Phone | [...] CTR CARDIAC | MD [address] | [place] ([facility]) (Primary | | | | REHABILITATION [address] [place] [place], | Dx) | | | | [address] [place] | [place] [address] | | | | | [place] [address] | [phone] | | | | | [phone] | | | +--------+---------+ + + + [...] from the original. [facility] CARDIAC REHABILITATION [address] [place] [address] Cardiac Rehab Date: 12/10/2017 Patient Information Patient Name: Bob Will Date of : 1955 Age: 62 y.o. Encounter Diagnoses Code Name Primary? I21.09 Acute anterior wall DC (HCC) Yes Number of Visits Approved: 36 [...] [place], | | | | | | [place] [address] | | | | | | [phone] | | | | | | | | +--------+ + + + + | 12/24/ | Office | Cardiac | Randy Figueroa, | | | 2017 | Visit | Rehabilitation | MD [address] | | | | | | [place], | | | | | | [place] [address] | | | | | | [phone] | | | | | | | | +--------+ + + + + | 12/31/ | Office | Cardiac | Randy Figueroa, | | | 2017 | Visit | Rehabilitation | MD [address] | | | | | | [place], | | | | | | [place] [address] | | | | | | [phone] | | | | | | | | +--------+ + + + + | 01/07/ | Office | Cardiac | Randy Figueroa, | | | 2017 | Visit | Rehabilitation | MD [address] | | | | | | [place], | | | | | | [place] [address] | | | | | | [phone] | | | | | | | [...] | | | | | | [place] [address] | | | | | | [phone] | | | | | | | | +--------+ + + + + | 01/14/ | Office | Cardiac | Randy Figueroa, | | | 2017 | Visit | Rehabilitation | MD Javid Crespo | | | | | | [place], | | | | | | [place] [address] | | | | | | [phone] | | | | | | | | +--------+ + + + + | 01/21/ | Office | Cardiac | Randy Figueroa, | | | 2017 | Visit | Rehabilitation | MD Javid [address]resp[address] | | | | | | [place], | | | | | | [place] [address] | | | | | | [phone] | | | | | | | | +--------+ + + + + | 01/28/ | Office | Cardiac | Randy Figueroa, | | | 2017 | Visit | Rehabilitation | MD [address] | | | | | | [place], | | | | | | [place] [address] | | | | | | [phone] | | | | | | | | +--------+ + + + + | 02/04/ | Office | Cardiac | Randy Figueroa, | | | 2017 | Visit | Rehabilitation | MD [address] | | | | | | [place], | | | | | | [place] [address] | | | | | | [phone] | | | | | | | | +--------+ + + + + | 02/11/ | Office | Cardiac | Randy Figueroa, | | | 2017 | Visit | Rehabilitation | MD Javid [address]resp[address] | | | | | | [place], | | | | | | [place] [address] | | | | | | [phone] | | | | | | | | +--------+ + + + + | 02/18/ | Office | Cardiac | Randy Figueroa, | | | 2017 | Visit | Rehabilitation | MD Javid [address]resp[address] | | | | | | [place], | | | | | | [place] [address] | | | | | | [phone] | | | | | | | | +--------+ + + + + | 02/24/ | Procedure | Physical Medicine | Prosper Esteves | | | 2017 | visit | and Rehabilitation | MD [address] | | | | | | [place] | | | | | | [address] | | | | | | | | +--------+ + + + + | 02/25/ | Office | Cardiac | Randy Figueroa, | | | 2017 | Visit | Rehabilitation | MD Javid [address]resp[address] | | | | | | [place], | | | | | | [place] [address] | | | | | | [phone] | | | | | | | | +--------+ + + + + | 03/04/ | Office | Cardiac | Randy Figueroa, | | | 2017 | Visit | Rehabilitation | MD Javid Cresp[address] | | | | | | [place], | | | | | | [place] [address] | | | | | | [phone] | | | | | | | | +--------+ + + + + | 03/11/ | Office | Cardiac | Randy Figueroa, | | | 2017 | Visit | Rehabilitation | MD Javid Crespo | | | | | | [place], | | | | | | [place] [address] | | | | | | [phone] | | | | | | | | +--------+ + + + + as of this encounter Visit Diagnoses + + | Diagnosis | + + | Acute anterior wall DC (HCC) - Primary | + + | Acute myocardial infarction of other anterior wall, episode of care unspecified | + +"
--- OUTSIDE RECORDS SUMMARY | ~2017-12-16 | XMS | Encounter Summary ---
Demographics + + + | Address | [address] | | | [place] [address] | + + + | Home Phone [...] Author | [facility] | | | and [place] | + + + | Organization | [facility] | | | and [place] | + + + | Address | Unknown | + + + | Phone | Unavailable | + + + Support + + + + + | Name | Relationship | Address | Phone | + + + + + | [place] Will | ECON | [address] | | | | | #[place] | | | | | [address] | | + + + + + Care Team Providers + +------+ + | Care Room Maid Name | Role | Phone | + [...] [address] | | | | | [place], | [place], | | | | | [place] [address] | [place] [address] | | | | | [phone] | [phone] | | | | | | | [...] Visit | Rehabilitation | MD [address] [place] | | | | | | [place], | | | | | | [place] [address] | | | | | | [phone] | | | | | | | | +--------+ + + + + | 12/24/ | Office | Cardiac | Randy Figueroa, | | | 2017 | Visit | Rehabilitation | MD [address] [place] | | | | | | [place], | | | | | | [place] [address] | | | | | | [phone] | | | | | | | | +--------+ + + + + | 12/31/ | Office | Cardiac | Randy Figueroa, | | | 2017 | Visit | Rehabilitation | MD [address] [place] | | | | | | [place], | | | | | | [place] [address] | | | | | | [phone] | | | | | | | | +--------+ + + + + | 01/07/ | Office | Cardiac | Randy Figueroa, | | | 2017 | Visit | Rehabilitation | MD Javid Crespo | | | | | | [place], | | | | | | [place] [address] | | | | | | [phone] | | | | | | | [...] [place], | | | | | | [place] [address] | | | | | | [phone] | | | | | | | | +--------+ + + + + | 01/14/ | Office | Cardiac | Randy Figueroa, | | | 2017 | Visit | Rehabilitation | MD Javid Crespo | | | | | | [place], | | | | | | [place] [address] | | | | | | [phone] | | | | | | | | +--------+ + + + + | 01/21/ | Office | Cardiac | Randy Figueroa, | | | 2017 | Visit | Rehabilitation | MD [address] | | | | | | [place], | | | | | | [place] [address] | | | | | | [phone] | | | | | | | | +--------+ + + + + | 01/28/ | Office | Cardiac | Randy Figueroa, | | | 2017 | Visit | Rehabilitation | MD [address] | | | | | | [place], | | | | | | [place] [address] | | | | | | [phone] | | | | | | | | +--------+ + + + + | 02/04/ | Office | Cardiac | Randy Figueroa, | | | 2017 | Visit | Rehabilitation | MD Javid Crespo | | | | | | [place], | | | | | | [place] [address] | | | | | | [phone] | | | | | | | | +--------+ + + + + | 02/11/ | Office | Cardiac | Randy Figueroa, | | | 2017 | Visit | Rehabilitation | MD Javid Crespo | | | | | | [place], | | | | | | [place] [address] | | | | | | [phone] | | | | | | | | +--------+ + + + + | 02/18/ | Office | Cardiac | Randy Figueroa, | | 2017 | Visit | Rehabilitation | MD Javid Crespo | | | | | | [place], | | | | | | [place] [address] | | | | | | [phone] | | | | | | | | +--------+ + + + + | 02/24/ | Procedure | Physical Medicine | Prosper Esteves | | | 2017 | visit | and Rehabilitation | T, MD Art [address] | | | | | | [place], [place] | | | | | | [address] | | | | | | | | +--------+ + + + + | 02/25/ | Office | Cardiac | Randy Figueroa, | | | 2017 | Visit | Rehabilitation | MD Javid Crespo | | | | | | [place], | | | | | | [place] [address] | | | | | | [phone] | | | | | | | | +--------+ + + + + | 03/04/ | Office | Cardiac | Randy Figueroa, | | | 2017 | Visit | Rehabilitation | MD Javid Crespo | | | | | | [place], | | | | | | [place] [address] | | | | | | [phone] | | | | | | | | +--------+ + + + + | 03/11/ | Office | Cardiac | Randy Figueroa, | | | 2017 | Visit | Rehabilitation | [address] | | | | | | [place], | | | | | | [place] [address] | | | | | | [phone] | | | | | | | | +--------+ + + + + as of this encounter Visit Diagnoses Not on filein this encounter"
--- OUTSIDE RECORDS SUMMARY | ~2017-12-16 | XMS | Encounter Summary ---
Demographics + + + | Address | [address] | | | [place] [address] | + + + | Home Phone [...] Author | [facility] | | | and [place] | + + + | Organization | [facility] | | | and [place] | + + + | Address | Unknown | + + + | Phone | Unavailable | + + + Support + + + + + | Name | Relationship | Address | Phone | + + + + + | [place] Will | ECON | [address] | | | | | #[place] | | | | | [address] | | + + + + + Care Team Providers + +------+ + | Care Airset Caster Name | Role | Phone | + +------+ + | Chato Matson MD | PCP | | + +------+ + Reason for Visit +--------+ + | Reason | Comments | +--------+ + | Other | appointment confusion | +--------+ + Encounter Details +--------+ + + + + | Date | Type | Department | Care Team | Description | +--------+ + + + + | 12/01/ | Telephone | [facility] [place] | Jenny, | Other (appointment | | 2017 | | KATY [address] | [address]SH [address] | confusion) | | | | [place], | [place], | | | | | [place] [address] | [place] [address] | | | | | [phone] | [phone] | | | | | | | [...] | | | | | | [place] [address] | | | | | | [phone] | | | | | | | | +--------+ + + + + | 12/24/ | Office | Cardiac | Randy Figueroa, | | | 2017 | Visit | Rehabilitation | MD Javid Crespo | | | | | | [place], | | | | | | [place] [address] | | | | | | [phone] | | | | | | | | +--------+ + + + + | 12/31/ | Office | Cardiac | Randy Figueroa, | | | 2017 | Visit | Rehabilitation | MD Javid [address]respo | | | | | | [place], | | | | | | [place] [address] | | | | | | [phone] | | | | | | | | +--------+ + + + + | 01/07/ | Office | Cardiac | Randy Figueroa, | | | 2017 | Visit | Rehabilitation | [address] [place] [address] [place] | | | | | | [place], | | | | | | [place] [address] | | | | | | [phone] | | | | | | | [...] | | | | | | [place] [address] | | | | | | [phone] | | | | | | | | +--------+ + + + + | 01/14/ | Office | Cardiac | Randy Figueroa, | | | 2017 | Visit | Rehabilitation | MD [address] [place] | | | | | | [place], | | | | | | [place] [address] | | | | | | [phone] | | | | | | | | +--------+ + + + + | 01/21/ | Office | Cardiac | Randy Figueroa, | | | 2017 | Visit | Rehabilitation | MD [address] [place] | | | | | | [place], | | | | | | [place] [address] | | | | | | [phone] | | | | | | | | +--------+ + + + + | 01/28/ | Office | Cardiac | Randy Figueroa, | | | 2017 | Visit | Rehabilitation | MD [address] [place] | | | | | | [place], | | | | | | [place] [address] | | | | | | [phone] | | | | | | | | +--------+ + + + + | 02/04/ | Office | Cardiac | Randy Figueroa, | | | 2017 | Visit | Rehabilitation | MD [address] [place] | | | | | | [place], | | | | | | [place] [address] | | | | | | [phone] | | | | | | | | +--------+ + + + + | 02/11/ | Office | Cardiac | Randy Figueroa, | | | 2017 | Visit | Rehabilitation | MD [address] [place] | | | | | | [place], | | | | | | [place] [address] | | | | | | [phone] | | | | | | | | +--------+ + + + + | 02/18/ | Office | Cardiac | Randy Figueroa, | | | 2017 | Visit | Rehabilitation | MD [address] [place] | | | | | | [place], | | | | | | [place] [address] | | | | | | [phone] | | | | | | | | +--------+ + + + + | 02/24/ | Procedure | Physical Medicine | Prosper Esteves | | | 2017 | visit | and Rehabilitation | MD [address] | | | | | | [place] | | | | | | [address] | | | | | | | | +--------+ + + + + | 02/25/ | Office | Cardiac | Randy Figueroa, | | | 2017 | Visit | Rehabilitation | MD Javid [address]respo | | | | | | [place], | | | | | | [place] [address] | | | | | | [phone] | | | | | | | | +--------+ + + + + | 03/04/ | Office | Cardiac | Randy Figueroa, | | | 2017 | Visit | Rehabilitation | MD Javid Crespo | | | | | | [place], | | | | | | [place] [address] | | | | | | [phone] | | | | | | | | +--------+ + + + + | 03/11/ | Office | Cardiac | Randy Figueroa, | | | 2017 | Visit | Rehabilitation | [address] | | | | | | [place], | | | | | | [place] [address] | | | | | | [phone] | | | | | | | | +--------+ + + + + as of this encounter Visit Diagnoses Not on filein this encounter"
--- OUTSIDE RECORDS SUMMARY | ~2017-12-16 | XMS | Encounter Summary ---
Demographics + + + | Address | [address] | | | [place] [address] | + + + | Home Phone [...] Author | [facility] | | | and [place] | + + + | Organization | [facility] | | | and [place] | + + + | Address | Unknown | + + + | Phone | Unavailable | + + + Support + + + + + | Name | Relationship | Address | Phone | + + + + + | [place] Will | ECON | [address] | | | | | #[place] | | | | | [address] | | + + + + + Care Team Providers + +------+ + | Care Parole Board Member Name | Role | Phone | [...] + + | 11/19/ | Office | [facility] | RahulyazshirazRandy, | Ischemic | | 2018 | Visit | MED CTR CARDIAC | MD [address] | cardiomyopathy | | | | REHABILITATION [address] | [address] [place] [address], | (Primary Dx) | | | | [address] [place] | [place] [address] | | | | | [place] [address] | [phone] | | | | | [phone] | | | +--------+---------+ + + + [...] this encounter Progress Notes Gael Woo - 11/19/2017 0900 PDTFormatting of this note may be different from the origin [facility] CARDIAC REHABILITATION [address] [place] [address] Cardiac Rehab Date: 11/19/2017 Patient Information Patient [...] en ded up in the hospital in [place], [place]. Spent multiple days there. Any abnormal vital signs or rhythm strips will be reported in progress note. Electronically signed by: Gael Woo, 11/19/2017 16:25 Patient Name: Bob Will/: 1955/ in this [...] | | | | | | [place] [address] | | | | | | [phone] | | | | | | | | +--------+ + + + + | 12/24/ | Office | Cardiac | Randy Figueroa, | | | 2017 | Visit | Rehabilitation | MD [address] | | | | | | [place], | | | | | | [place] [address] | | | | | | [phone] | | | | | | | | +--------+ + + + + | 12/31/ | Office | Cardiac | Randy Figueroa, | | | 2017 | Visit | Rehabilitation | MD [address] | | | | | | [place], | | | | | | [place] [address] | | | | | | [phone] | | | | | | | | +--------+ + + + + | 01/07/ | Office | Cardiac | Randy Figueroa, | | | 2017 | Visit | Rehabilitation | MD [address] | | | | | | [place], | | | | | | [place] [address] | | | | | | [phone] | | | | | | | [...] | | | | | | [place] [address] | | | | | | [phone] | | | | | | | | +--------+ + + + + | 01/14/ | Office | Cardiac | Randy Figueroa, | | | 2017 | Visit | Rehabilitation | MD [address]av[address] | | | | | | [place], | | | | | | [place] [address] | | | | | | [phone] | | | | | | | | +--------+ + + + + | 01/21/ | Office | Cardiac | Randy Figueroa, | | | 2017 | Visit | Rehabilitation | MD [address] | | | | | | [place], | | | | | | [place] [address] | | | | | | [phone] | | | | | | | | +--------+ + + + + | 01/28/ | Office | Cardiac | Randy Figueroa, | | | 2017 | Visit | Rehabilitation | MD [address] | | | | | | [place], | | | | | | [place] [address] | | | | | | [phone] | | | | | | | | +--------+ + + + + | 02/04/ | Office | Cardiac | Randy Figueroa, | | | 2017 | Visit | Rehabilitation | MD [address]av[address] | | | | | | [place], | | | | | | [place] [address] | | | | | | [phone] | | | | | | | | +--------+ + + + + | 02/11/ | Office | Cardiac | Randy Figueroa, | | | 2017 | Visit | Rehabilitation | MD Jav[address] Rodriguezar | | | | | | [place], | | | | | | [place] [address] | | | | | | [phone] | | | | | | | | +--------+ + + + + | 02/18/ | Office | Cardiac | Randy Figueroa, | | | 2017 | Visit | Rehabilitation | MD Jav[address] Rodriguezar | | | | | | [place], | | | | | | [place] [address] | | | | | | [phone] | | | | | | | | +--------+ + + + + | 02/24/ | Procedure | Physical Medicine | Prosper Esteves | | | 2017 | visit | and Rehabilitation | MD Art Isabel | | | | | | [place] | | | | | | [address] | | | | | | | | +--------+ + + + + | 02/25/ | Office | Cardiac | Randy Figueroa, | | | 2017 | Visit | Rehabilitation | MD Jav[address] Rodriguezar | | | | | | [place], | | | | | | [place] [address] | | | | | | [phone] | | | | | | | | +--------+ + + + + | 03/04/ | Office | Cardiac | Randy Figueroa, | | | 2017 | Visit | Rehabilitation | MD Jav[address] Rodriguezar | | | | | | [place], | | | | | | [place] [address] | | | | | | [phone] | | | | | | | | +--------+ + + + + | 03/11/ | Office | Cardiac | Randy Figueroa, | | | 2017 | Visit | Rehabilitation | MD Jav[address] Rodriguezar | | | | | | [place], | | | | | | [place] [address] | | | | | | [phone] | | | | | | | | +--------+ + + + + as of this encounter Visit Diagnoses + + | Diagnosis | + + | Ischemic cardiomyopathy - Primary | + + | Other specified forms of chronic ischemic heart disease | + +"
--- OUTSIDE RECORDS SUMMARY | ~2017-12-16 | XMS | Encounter Summary ---
Demographics + + + | Address | [address] | | | [place] [address] | + + + | Home Phone [...] | Author | [facility] | | | and [place] | + + + | Organization | [facility] | | | and [place] | + + + | Address | Unknown | + + + | Phone | Unavailable | + + + Support + + + + + | Name | Relationship | Address | Phone | + + + + + | [place] Will | ECON | [address] | | | | | #[place] | | | | | [address] | | + + + + + Care Team Providers + +------+ + | Care Natural Resources Specialist Name | Role | Phone | [...] + + | 11/19/ | Office | [facility] | RahulyazshirazRandy, | Ischemic | | 2018 | Visit | MED CTR CARDIAC | MD [address] | cardiomyopathy | | | | REHABILITATION [address] | [address] [place], | (Primary Dx) | | | | [address] [place] | [place] [address] | | | | | [place] [address] | [phone] | | | | | [phone] | | | +--------+---------+ + + + [...] note may be different from the origin [facility] C[facility]AC [facility]HABILITATION [address] [place] [address] Cardiac Rehab Date: 11/19/2017 Patient Information Patient [...] en ded up in the hospital in [place], [place]. Spent multiple days there. Any abnormal [...] | | | | | | [place] [address] | | | | | | [phone] | | | | | | | | +--------+ + + + + | 12/24/ | Office | Cardiac | Randy Figueroa, | | | 2017 | Visit | Rehabilitation | MD [address] | | | | | | [place], | | | | | | [place] [address] | | | | | | [phone] | | | | | | | | +--------+ + + + + | 12/31/ | Office | Cardiac | Randy Figueroa, | | | 2017 | Visit | Rehabilitation | MD [address] | | | | | | [place], | | | | | | [place] [address] | | | | | | [phone] | | | | | | | | +--------+ + + + + | 01/07/ | Office | Cardiac | Randy Figueroa, | | | 2017 | Visit | Rehabilitation | MD [address] | | | | | | [place], | | | | | | [place] [address] | | | | | | [phone] | | | | | | | [...] | | | | | | [place] [address] | | | | | | [phone] | | | | | | | | +--------+ + + + + | 01/14/ | Office | Cardiac | Randy Figueroa, | | | 2017 | Visit | Rehabilitation | MD Jav[address] Crespo | | | | | | [place], | | | | | | [place] [address] | | | | | | [phone] | | | | | | | | +--------+ + + + + | 01/21/ | Office | Cardiac | Randy Figueroa, | | | 2017 | Visit | Rehabilitation | MD [address]av[address] Crespo | | | | | | [place], | | | | | | [place] [address] | | | | | | [phone] | | | | | | | | +--------+ + + + + | 01/28/ | Office | Cardiac | Randy Figueroa, | | | 2017 | Visit | Rehabilitation | MD [address]av[address] Crespo | | | | | | [place], | | | | | | [place] [address] | | | | | | [phone] | | | | | | | | +--------+ + + + + | 02/04/ | Office | Cardiac | Randy Figueroa, | | | 2017 | Visit | Rehabilitation | MD [address]av[address]resp[address] | | | | | | [place], | | | | | | [place] [address] | | | | | | [phone] | | | | | | | | +--------+ + + + + | 02/11/ | Office | Cardiac | Randy Figueroa, | | | 2017 | Visit | Rehabilitation | MD [address]av[address] Rodriguezar | | | | | | [place], | | | | | | [place] [address] | | | | | | [phone] | | | | | | | | +--------+ + + + + | 02/18/ | Office | Cardiac | Randy Figueroa, | | | 2017 | Visit | Rehabilitation | MD Jav[address] Rodriguezar | | | | | | [place], | | | | | | [place] [address] | | | | | | [phone] | | | | | | | | +--------+ + + + + | 02/24/ | Procedure | Physical Medicine | Prosper Esteves | | | 2017 | visit | and Rehabilitation | MD [address] Isabel | | | | | | [place] | | | | | | [address] | | | | | | | | +--------+ + + + + | 02/25/ | Office | Cardiac | Randy Figueroa, | | | 2017 | Visit | Rehabilitation | MD Jav[address] | | | | | | [place], | | | | | | [place] [address] | | | | | | [phone] | | | | | | | | +--------+ + + + + | 03/04/ | Office | Cardiac | Randy Figueroa, | | | 2017 | Visit | Rehabilitation | MD Jav[address] Rodriguezar | | | | | | [place], | | | | | | [place] [address] | | | | | | [phone] | | | | | | | | +--------+ + + + + | 03/11/ | Office | Cardiac | Randy Figueroa, | | | 2017 | Visit | Rehabilitation | MD Javid Rodriguezar | | | | | | [place], | | | | | | [place] [address] | | | | | | [phone] | | | | | | | | +--------+ + + + + as of this encounter Visit Diagnoses + + | Diagnosis | + + | Ischemic cardiomyopathy - Primary | + + | Other specified forms of chronic ischemic heart disease | + +"
--- OUTSIDE RECORDS SUMMARY | ~2017-12-16 | XMS | Encounter Summary ---
Demographics + + + | Address | [address] | | | [place] [address] | + + + | Home Phone [...] | | | | | [place] [address] | | + + + + + Care Team Providers + +------+ + | Care Right Of Way Cutter Name | Role | Phone | + +------+ + | Chato Matson MD | PCP | | + +------+ + Encounter Details +--------+ + + + + | Date | Type | Department | Care Team | Description | +--------+ + + + + | 10/11/ | Procedure | [facility] [address] | | | | 2017 | Pass | [address] | | | | | | [facility] [facility] | | | | | | [place], [place] | | | | | | [address] | | | | | | [phone] | | | +--------+ + + + [...]
--- OUTSIDE RECORDS SUMMARY | ~2017-12-16 | XMS | Encounter Summary ---
Demographics + + + | Address | [address] | | | [place] [address] | + + + | Home Phone [...] [facility] | | | and [place] | + + + | Organization | [facility] | | | and [place] | + + + | Address | Unknown | + + + | Phone | Unavailable | + + + Support + + + + + | Name | Relationship | Address | Phone | + + + + + | [place] Will | ECON | [address] | | | | | #[place] | | | | | [address] | | + + + + + Care Team Providers + +------+ + | Care Meter Reading Clerk Name | Role | Phone | [...] W | confusion) | | | | [place], | [place], | | | | | [place] [address] | [place] [address] | | | | | [phone] | [phone] | | | | | | | [...] | | | | | | [place] [address] | | | | | | [phone] | | | | | | | | +--------+ + + + + | 12/24/ | Office | Cardiac | Randy Figueroa, | | | 2017 | Visit | Rehabilitation | MD Javid Crespo | | | | | | [place], | | | | | | [place] [address] | | | | | | [phone] | | | | | | | | +--------+ + + + + | 12/31/ | Office | Cardiac | Randy Figueroa, | | | 2017 | Visit | Rehabilitation | MD Javid Crespo | | | | | | [place], | | | | | | [place] [address] | | | | | | [phone] | | | | | | | | +--------+ + + + + | 01/07/ | Office | Cardiac | Randy Figueroa, | | | 2017 | Visit | Rehabilitation | [address] [place] [address] [address] | | | | | | [place], | | | | | | [place] [address] | | | | | | [phone] | | | | | | | [...] | | | | | | [place] [address] | | | | | | [phone] | | | | | | | | +--------+ + + + + | 01/14/ | Office | Cardiac | Randy Figueroa, | | | 2017 | Visit | Rehabilitation | MD [address] [place] | | | | | | [place], | | | | | | [place] [address] | | | | | | [phone] | | | | | | | | +--------+ + + + + | 01/21/ | Office | Cardiac | Randy Figueroa, | | | 2017 | Visit | Rehabilitation | MD [address] [place] | | | | | | [place], | | | | | | [place] [address] | | | | | | [phone] | | | | | | | | +--------+ + + + + | 01/28/ | Office | Cardiac | Randy Figueroa, | | | 2017 | Visit | Rehabilitation | MD [address] [place] | | | | | | [place], | | | | | | [place] [address] | | | | | | [phone] | | | | | | | | +--------+ + + + + | 02/04/ | Office | Cardiac | Randy Figueroa, | | | 2017 | Visit | Rehabilitation | MD [address] [place] | | | | | | [place], | | | | | | [place] [address] | | | | | | [phone] | | | | | | | | +--------+ + + + + | 02/11/ | Office | Cardiac | Randy Figueroa, | | | 2017 | Visit | Rehabilitation | MD [address] [place] | | | | | | [place], | | | | | | [place] [address] | | | | | | [phone] | | | | | | | | +--------+ + + + + | 02/18/ | Office | Cardiac | Randy Figueroa, | | | 2017 | Visit | Rehabilitation | MD [address] [place] | | | | | | [place], | | | | | | [place] [address] | | | | | | [phone] | | | | | | | | +--------+ + + + + | 02/24/ | Procedure | Physical Medicine | Prosper Esteves | | | 2017 | visit | and Rehabilitation | MD Art Isabel | | | | | | [place] | | | | | | [address] | | | | | | | | +--------+ + + + + | 02/25/ | Office | Cardiac | Randy Figueroa, | | | 2017 | Visit | Rehabilitation | MD Javid Crespo | | | | | | [place], | | | | | | [place] [address] | | | | | | [phone] | | | | | | | | +--------+ + + + + | 03/04/ | Office | Cardiac | Randy Figueroa, | | | 2017 | Visit | Rehabilitation | MD Javid Crespo | | | | | | [place], | | | | | | [place] [address] | | | | | | [phone] | | | | | | | | +--------+ + + + + | 03/11/ | Office | Cardiac | Randy Figueroa, | | | 2017 | Visit | Rehabilitation | [address] | | | | | | [place], | | | | | | [place] [address] | | | | | | [phone] | | | | | | | | +--------+ + + + + as of this encounter Visit Diagnoses Not on filein this encounter"
--- OUTSIDE RECORDS SUMMARY | ~2017-12-16 | XMS | Encounter Summary ---
Demographics + + + | Address | [address] | | | [place] [address] | + + + | Home Phone [...] | Author | [facility] | | | and [place] | + + + | Organization | [facility] | | | and [place] | + + + | Address | Unknown | + + + | Phone | Unavailable | + + + Support + + + + + | Name | Relationship | Address | Phone | + + + + + | [place] Will | ECON | [address] | | | | | #[place] | | | | | [address] | | + + + + + Care Team Providers + +------+ + | Care Wood Fuel Pelletizer Name | Role | Phone | + [...] + | 10/26/ | Clinical | [facility] | Carolina Lindarisa, | Tachycardia (Primary | | 2018 | Support | CARDIOLOGY [address] | Dx); Ischemic | | | | [place], | [place], | cardiomyopathy; | | | | [place] [address] | [place] [address] | MANUGRAPHER-D (AICD) | | | | [phone] | [phone] | [employer] 10/16/17 | | | | [...] | | | | | | [place] [address] | | | | | | [phone] | | | | | | | | +--------+ + + + + | 12/24/ | Office | Cardiac | Randy Figueroa, | | | 2017 | Visit | Rehabilitation | MD Javid Crespo | | | | | | [place], | | | | | | [place] [address] | | | | | | [phone] | | | | | | | | +--------+ + + + + | 12/31/ | Office | Cardiac | Randy Figueroa, | | 2017 | Visit | Rehabilitation | MD Javid Rodriguezar | | | | | | [place], | | | | | | [place] [address] | | | | | | [phone] | | | | | | | | +--------+ + + + + | 01/07/ | Office | Cardiac | Randy Figueroa, | | | 2017 | Visit | Rehabilitation | MD Javid Crespo | | | | | | [place], | | | | | | [place] [address] | | | | | | [phone] | | | | | | | [...] | | | | | | [place] [address] | | | | | | [phone] | | | | | | | | +--------+ + + + + | 01/14/ | Office | Cardiac | Randy Figueroa, | | | 2017 | Visit | Rehabilitation | MD Javid Crespo | | | | | | [place], | | | | | | [place] [address] | | | | | | [phone] | | | | | | | | +--------+ + + + + | 01/21/ | Office | Cardiac | Randy Figueroa, | | | 2017 | Visit | Rehabilitation | MD [address] [place] | | | | | | [place], | | | | | | [place] [address] | | | | | | [phone] | | | | | | | | +--------+ + + + + | 01/28/ | Office | Cardiac | Randy Figueroa, | | | 2017 | Visit | Rehabilitation | MD [address] | | | | | | [place], | | | | | | [place] [address] | | | | | | [phone] | | | | | | | | +--------+ + + + + | 02/04/ | Office | Cardiac | Randy Figueroa, | | | 2017 | Visit | Rehabilitation | MD [address] | | | | | | [place], | | | | | | [place] [address] | | | | | | [phone] | | | | | | | | +--------+ + + + + | 02/11/ | Office | Cardiac | Randy Figueroa, | | | 2017 | Visit | Rehabilitation | MD Javid Crespo | | | | | | [place], | | | | | | [place] [address] | | | | | | [phone] | | | | | | | | +--------+ + + + + | 02/18/ | Office | Cardiac | Randy Figueroa, | | | 2017 | Visit | Rehabilitation | MD Javid Crespo | | | | | | [place], | | | | | | [place] [address] | | | | | | [phone] | | | | | | | | +--------+ + + + + | 02/24/ | Procedure | Physical Medicine | Prosper Esteves | | | 2017 | visit | and Rehabilitation | MD Art Isabel | | | | | | [place] | | | | | | [address] | | | | | | | | +--------+ + + + + | 02/25/ | Office | Cardiac | Randy Figueroa, | | | 2017 | Visit | Rehabilitation | MD [address] | | | | | | [place], | | | | | | [place] [address] | | | | | | [phone] | | | | | | | | +--------+ + + + + | 03/04/ | Office | Cardiac | Randy Figueroa, | | | 2017 | Visit | Rehabilitation | MD [address] | | | | | | [place], | | | | | | [place] [address] | | | | | | [phone] | | | | | | | | +--------+ + + + + | 03/11/ | Office | Cardiac | Randy Figueroa, | | 2017 | Visit | Rehabilitation | MD [address] | | | | | | [place], | | | | | | [place] [address] | | | | | | [phone] | | | | | | | | +--------+ + + + + as of this encounter Visit Diagnoses + + | Diagnosis | + + | Tachycardia - Primary | + + | Tachycardia, unspecified | + + | Ischemic cardiomyopathy | + + | Other specified forms of chronic ischemic heart disease | + + | MANUGRAPHER-D (GABBI) [employer] 10/16/17 EULOGIO Darby | + +"
--- OUTSIDE RECORDS SUMMARY | ~2017-12-16 | XMS | Encounter Summary ---
Demographics + + + | Address | [address] | | | [place] [address] | + + + | Home Phone [...] | [facility] | | | and [place] | + + + | Organization | [facility] | | | and [place] | + + + | Address | Unknown | + + + | Phone | Unavailable | + + + Support + + + + + | Name | Relationship | Address | Phone | + + + + + | [place] Will | ECON | [address] | | | | | #[place] | | | | | [address] | | + + + + + Care Team Providers + +------+ + | Care Gravity Prospecting Operator Helper Name | Role | Phone [...] | | | | | | | [place] | | | | | | [...] | | | | | [address] | [place] | | | | | [place] | [address] | | | | | [address] | | | | | | [phone] | | | +--------+ + + + [...] | | Type: endotracheal; Size: 7.5; | BODY MASKER | | | | Removal: per protocol; Removal | | | | | Date: 10/05/17; Removal Time: | | | | | 1946 | | | +--------+ + + + | Periph | 10/03/17; 929; Left; Forearm; | 10/03/17929 by | 10/07/17 011 by | | eral | tamj-hyc-agejnl catheter system; | Demetra Kirk RN | [...] Dalia Diaz RN | | IV | zrcy-jjw-iprlhm catheter system; | | | | | [...] | | | | | | [place] [address] | | | | | | [phone] | | | | | | | | +--------+ + + + + | 12/24/ | Office | Cardiac | Randy Figueroa, | | | 2017 | Visit | Rehabilitation | MD [address] | | | | | | [place], | | | | | | [place] [address] | | | | | | [phone] | | | | | | | | +--------+ + + + + | 12/31/ | Office | Cardiac | Randy Figueroa, | | | 2017 | Visit | Rehabilitation | MD [address] | | | | | | [place], | | | | | | [place] [address] | | | | | | [phone] | | | | | | | | +--------+ + + + + | 01/07/ | Office | Cardiac | Randy Figueroa, | | | 2017 | Visit | Rehabilitation | MD [address] | | | | | | [place], | | | | | | [place] [address] | | | | | | [phone] | | | | | | | | +--------+ + + + + | 01/13/ | Clinical | Cardiology | | | | 2017 | Support | | | | +--------+ + + + + | 01/13/ | Office | Cardiology | Jenny, | | | 2017 | Visit | | [address] | | | | | | [place], | | | | | | [place] [address] | | | | | | [phone] | | | | | | | | +--------+ + + + + | 01/14/ | Office | Cardiac | Randy Figueroa, | | | 2017 | Visit | Rehabilitation | MD [address]av[address]respo | | | | | | [place], | | | | | | [place] [address] | | | | | | [phone] | | | | | | | | +--------+ + + + + | 01/21/ | Office | Cardiac | Randy Figueroa, | | | 2017 | Visit | Rehabilitation | MD [address] | | | | | | [place], | | | | | | [place] [address] | | | | | | [phone] | | | | | | | | +--------+ + + + + | 01/28/ | Office | Cardiac | Randy Figueroa, | | | 2017 | Visit | Rehabilitation | MD [address] | | | | | | [place], | | | | | | [place] [address] | | | | | | [phone] | | | | | | | | +--------+ + + + + | 02/04/ | Office | Cardiac | Randy Figueroa, | | | 2017 | Visit | Rehabilitation | MD [address] | | | | | | [place], | | | | | | [place] [address] | | | | | | [phone] | | | | | | | | +--------+ + + + + | 02/11/ | Office | Cardiac | Randy Figueroa, | | | 2017 | Visit | Rehabilitation | MD [address]av[address]resp[address] | | | | | | [place], | | | | | | [place] [address] | | | | | | [phone] | | | | | | | | +--------+ + + + + | 02/18/ | Office | Cardiac | Randy Figueroa, | | | 2017 | Visit | Rehabilitation | MD [address] | | | | | | [place], | | | | | | [place] [address] | | | | | | [phone] | | | | | | | | +--------+ + + + + | 02/24/ | Procedure | Physical Medicine | Prosper Esteves | | | 2017 | visit | and Rehabilitation | MD [address] | | | | | | [place] | | | | | | [address] | | | | | | | | +--------+ + + + + | 02/25/ | Office | Cardiac | Randy Figueroa, | | | 2017 | Visit | Rehabilitation | MD [address] | | | | | | [place], | | | | | | [place] [address] | | | | | | [phone] | | | | | | | | +--------+ + + + + | 03/04/ | Office | Cardiac | Randy Figueroa, | | | 2017 | Visit | Rehabilitation | MD [address] | | | | | | [place], | | | | | | [place] [address] | | | | | | [phone] | | | | | | | | +--------+ + + + + | 03/11/ | Office | Cardiac | Randy Figueroa, | | | 2017 | Visit | Rehabilitation | MD [address] | | | | | | [place], | | | | | | [place] [address] | | | | | | [phone] | | | | | | | [...]
--- OUTSIDE RECORDS SUMMARY | ~2017-12-16 | XMS | Encounter Summary ---
Demographics + + + | Address | [address] | | | [place] [address] | + + + | Home Phone [...] Author | [facility] | | | and [place] | + + + | Organization | [facility] | | | and [place] | + + + | Address | Unknown | + + + | Phone | Unavailable | + + + Support + + + + + | Name | Relationship | Address | Phone | + + + + + | [place] Will | ECON | [address] | | | | | #[place] | | | | | [address] | | + + + + + Care Team Providers + +------+ + | Care Rn Maternal Child Name | Role | Phone | + [...] | 11/12/ | Implant | [facility] [place] | Rahullindacathy Lindarahul, | Implantable | | 2018 | Monitor | CARDIOLOGY [address] | defibrillator | | | | [place], | [place], | reprogramming/check | | | | [place] [address] | [place] [address] | (Primary Dx); RESIDENT ASSISTANT CNA-D | | | | [phone] | [phone] | (AICD) [employer] | | | | | | 10/16/17 [facility] [place]; | [...] | | | | | | [place] [address] | | | | | | [phone] | | | | | | | | +--------+ + + + + | 12/24/ | Office | Cardiac | Randy Figueroa, | | | 2017 | Visit | Rehabilitation | MD [address] | | | | | | [place], | | | | | | [place] [address] | | | | | | [phone] | | | | | | | | +--------+ + + + + | 12/31/ | Office | Cardiac | Randy Figueroa, | | | 2017 | Visit | Rehabilitation | MD [address] | | | | | | [place], | | | | | | [place] [address] | | | | | | [phone] | | | | | | | | +--------+ + + + + | 01/07/ | Office | Cardiac | Randy Figueroa, | | | 2017 | Visit | Rehabilitation | MD [address] | | | | | | [place], | | | | | | [place] [address] | | | | | | [phone] | | | | | | | [...] | | | | | | [place] [address] | | | | | | [phone] | | | | | | | | +--------+ + + + + | 01/14/ | Office | Cardiac | Randy Figueroa, | | | 2017 | Visit | Rehabilitation | MD [address] | | | | | | [place], | | | | | | [place] [address] | | | | | | [phone] | | | | | | | | +--------+ + + + + | 01/21/ | Office | Cardiac | Randy Figueroa, | | | 2017 | Visit | Rehabilitation | MD [address] | | | | | | [place], | | | | | | [place] [address] | | | | | | [phone] | | | | | | | | +--------+ + + + + | 01/28/ | Office | Cardiac | Randy Figueroa, | | | 2017 | Visit | Rehabilitation | MD [address] | | | | | | [place], | | | | | | [place] [address] | | | | | | [phone] | | | | | | | | +--------+ + + + + | 02/04/ | Office | Cardiac | Randy Figueroa, | | | 2017 | Visit | Rehabilitation | MD [address] | | | | | | [place], | | | | | | [place] [address] | | | | | | [phone] | | | | | | | | +--------+ + + + + | 02/11/ | Office | Cardiac | Randy Figueroa, | | | 2017 | Visit | Rehabilitation | MD [address] | | | | | | [place], | | | | | | [place] [address] | | | | | | [phone] | | | | | | | | +--------+ + + + + | 02/18/ | Office | Cardiac | Randy Figueroa, | | | 2017 | Visit | Rehabilitation | MD [address] | | | | | | [place], | | | | | | [place] [address] | | | | | | [phone] | | | | | | | | +--------+ + + + + | 02/24/ | Procedure | Physical Medicine | Prosper Esteves | | | 2017 | visit | and Rehabilitation | MD [address] | | | | | | [place] | | | | | | [address] | | | | | | | | +--------+ + + + + | 02/25/ | Office | Cardiac | Randy Figueroa, | | | 2017 | Visit | Rehabilitation | MD [address]av[address] | | | | | | [place], | | | | | | [place] [address] | | | | | | [phone] | | | | | | | | +--------+ + + + + | 03/04/ | Office | Cardiac | Randy Figueroa, | | | 2017 | Visit | Rehabilitation | MD Javid [address]respo | | | | | | [place], | | | | | | [place] [address] | | | | | | [phone] | | | | | | | | +--------+ + + + + | 03/11/ | Office | Cardiac | Carolina Lindarahul, | | | 2017 | Visit | Rehabilitation | [address] | | | | | | [place], | | | | | | [place] [address] | | | | | | [phone] | | | | | | | | +--------+ + + + + as of this encounter Results Device Interrogation - Remote (11/12/2017 2239) + + + | Specimen | Performing Laboratory | + + + | | [facility] | + + + + + | Narrative | + + | Randy Figueroa MD 11/16/2017 17:06 Refer to [facility] documentation and | | remote PDF scanned into [employer] for remote interrogation results. Data collected by [...] implantable cardiac defibrillator | + + | RESIDENT ASSISTANT CNA-D D[place]lo (AICD) 10/16/17 EULOGIO Darby | + + | Ischemic cardiomyopathy | + + | Other specified forms of chronic ischemic heart disease | + +"
--- OUTSIDE RECORDS SUMMARY | ~2017-12-16 | XMS | Encounter Summary ---
Demographics + + + | Address | [address] | | | [place] [address] | + + + | Home Phone [...] | Author | [facility] | | | and [place] | + + + | Organization | [facility] | | | and [place] | + + + | Address | Unknown | + + + | Phone | Unavailable | + + + Support + + + + + | Name | Relationship | Address | Phone | + + + + + | [place] Will | E[place] | [address] | | | | | #[place] | | | | | [address] | | + + + + + Care Team Providers + +------+ + | Care Sports Clerk Name | Role | Phone | [...] | | CARDIOLOGY [address] | [address] COUGAR HUNTER [address] | | | | | [place], | [place], | | | | | [place] [address] | [place] [address] | | | | | [phone] | [phone] | | | | | | | [...] | | | | | | [place] [address] | | | | | | [phone] | | | | | | | | +--------+ + + + + | 12/24/ | Office | Cardiac | Randy Figueroa, | | | 2017 | Visit | Rehabilitation | MD [address] [place] | | | | | | [place], | | | | | | [place] [address] | | | | | | [phone] | | | | | | | | +--------+ + + + + | 12/31/ | Office | Cardiac | Randy Figueroa, | | | 2017 | Visit | Rehabilitation | MD [address] [place] | | | | | | [place], | | | | | | [place] [address] | | | | | | [phone] | | | | | | | | +--------+ + + + + | 01/07/ | Office | Cardiac | Randy Figueroa, | | | 2017 | Visit | Rehabilitation | MD [address] [place] | | | | | | [place], | | | | | | [place] [address] | | | | | | [phone] | | | | | | | | +--------+ + + + + | 01/13/ | Clinical | Cardiology | | | | 2017 | Support | | | | +--------+ + + + + | 01/13/ | Office | Cardiology | Jenny, | | | 2017 | Visit | | [address] | | | | | | [place], | | | | | | [place] [address] | | | | | | [phone] | | | | | | | | +--------+ + + + + | 01/14/ | Office | Cardiac | Randy Figueroa, | | | 2017 | Visit | Rehabilitation | MD [address]avid [address]resp[address] | | | | | | [place], | | | | | | [place] [address] | | | | | | [phone] | | | | | | | | +--------+ + + + + | 01/21/ | Office | Cardiac | Randy Figueroa, | | | 2017 | Visit | Rehabilitation | MD [address] [place] | | | | | | [place], | | | | | | [place] [address] | | | | | | [phone] | | | | | | | | +--------+ + + + + | 01/28/ | Office | Cardiac | Randy Figueroa, | | | 2017 | Visit | Rehabilitation | MD [address] [place] | | | | | | [place], | | | | | | [place] [address] | | | | | | [phone] | | | | | | | | +--------+ + + + + | 02/04/ | Office | Cardiac | Randy Figueroa, | | | 2017 | Visit | Rehabilitation | MD [address] [place] | | | | | | [place], | | | | | | [place] [address] | | | | | | [phone] | | | | | | | | +--------+ + + + + | 02/11/ | Office | Cardiac | Randy Figueroa, | | | 2017 | Visit | Rehabilitation | MD [address] | | | | | | [place], | | | | | | [place] [address] | | | | | | [phone] | | | | | | | | +--------+ + + + + | 02/18/ | Office | Cardiac | Randy Figueroa, | | | 2017 | Visit | Rehabilitation | MD [address] | | | | | | [place], | | | | | | [place] [address] | | | | | | [phone] | | | | | | | | +--------+ + + + + | 02/24/ | Procedure | Physical Medicine | Prosper Esteves | | | 2017 | visit | and Rehabilitation | MD [address] | | | | | | [place] | | | | | | [address] | | | | | | | | +--------+ + + + + | 02/25/ | Office | Cardiac | Randy Figueroa, | | | 2017 | Visit | Rehabilitation | MD [address] [place] | | | | | | [place], | | | | | | [place] [address] | | | | | | [phone] | | | | | | | | +--------+ + + + + | 03/04/ | Office | Cardiac | Randy Figueroa, | | | 2017 | Visit | Rehabilitation | MD [address] [place] | | | | | | [place], | | | | | | [place] [address] | | | | | | [phone] | | | | | | | | +--------+ + + + + | 03/11/ | Office | Cardiac | Randy Figueroa, | | | 2017 | Visit | Rehabilitation | MD [address] [place] | | | | | | [place], | | | | | | [place] [address] | | | | | | [phone] | | | | | | | [...]
--- OUTSIDE RECORDS SUMMARY | ~2017-12-16 | XMS | Encounter Summary ---
Demographics + + + | Address | [address] | | | [place] [address] | + + + | Home Phone [...] Author | [facility] | | | and [place] | + + + | Organization | [facility] | | | and [place] | + + + | Address | Unknown | + + + | Phone | Unavailable | + + + Support + + + + + | Name | Relationship | Address | Phone | + + + + + | Venice Hood | ECON | [address] | | | | | #[place] | | | | | [address] | | + + + + + Care Team Providers + +------+ + | Care Dietetic Intern Name | Role | Phone | [...] + + | 10/05/ | [facility] | [facility] | Terry Weir MD | EGD | | 2017 | | MED CTR MP INTRA OP | [address], [place] | | | | | [address] | [address] | | | | | [place] | [address] | | | | | [address] | | | | | | [phone] | | | +--------+---------+ + + + [...] c/b card iogenic shock s/p ECMO in [facility] 4. Paroxysmal atrial flutter [...] cardiac sh ock/respiratory failure requiring Tx to [facility]; was on ECMO, who was a transfer this time from [facility] on 10/03 for acute respiratory failure requiring intubation after prese nting with progressively worsening shortness of breath. Hospital Course, including Complications: He was found to have NSTEMI with new LBBB and elevated tropinin and Septic shock thought t o be from pneumonia/influenza; started on ceftriaxone, azithromycin and tamiflu. He underwen t [facility] on 10/03- severe in-stent stenosis [...] Dr. Mobley discussed with Sonido haynes at [facility] but patient refused to go to [place] for re-vascu larization. He preferred to go to [facility]. Dr. Mobley discussed with Dr. Bedoya at [facility] and he was accepted [...] c/b sonido iogenic shock s/p ECMO in [facility] - troponin peaked to 26 - [facility] on 10/03- severe in-stent stenosis [...] - Dr. Mobley discussed with Cardiology at [facility] and was accepted at [facility] for re-vascularization but patient refused and wanted to be transferred to [facility]. Dr. Mobley discussed with cardiology at [facility] and was accepted by [...] results on DC: None Disposition: Transfer to [facility] cardiology service Dr. Bedoya accepting physician Discharge Procedure Orders Transfer patient to other facility Order Comments: [facility] when bed is available. Code Status/Advance Directive (Pertinent discussions/declarations): Full Code Time spent on Discharge and Coordination of post-hospital care: >30 minutes Electronically signed by: Destinee Trejo, 10/10/2017 15:01 [facility] in this encounter Medications at Time [...] to bedside, patient to winsome o to [facility], wants to get better [...] chest pain. He is bringing up sputum leiza t is ranged in color from reddish brown to clear. He remains afebrile. Blood pressure has been stable. He remains in sinus rhythm. The patient will be transferred today to [facility] for coronary revascularization. MEDICATIONS: Current [...] on amiodarone PLAN OR RECOMMENDATIONS: Transfer to [facility] audiology service Dr. Segura accepting physician I appreciate the opportunity of participating in the care of this patient. Delmer Mobley MD, 10/09/2017 15:00 Destinee Trejo MD - 10/09/2017 0816 PSTFormatting of this note may be different from the original. [facility] PMG Hospitalist Progress Note Bob Hood is a 61 y.o. male INTERVAL HPI: He is a 61 y.o. male with a history of CAD with recent anterior wall PR, post PTCA and sten ts of the left main, LAD and LCx on 03/15/17 + left atrial appendage thrombus c/b cardiac shoc k/respiratory failure requiring Tx to [facility]; was on ECMO, who was a transfer this time from [facility] on 10/03 for acute respiratory [...] c/b card iogenic shock s/p ECMO in [facility] - troponin peaked to [...] Mobley will consult with cardiology team at [facility] Re: planning for revascularization today [...] as outlined above. Destinee Trejo 10/09/2017 8:16 [facility] Destinee Trejo MD - 10/08/2017 1220 PSTFormatting of this note may be different from the original. [facility] PMG Hospitalist Progress Note Bob Hood is a 61 y.o. male INTERVAL HPI: He is a 61 y.o. male with a history of CAD with recent anterior wall PR, post PTCA and sten ts of the left main, LAD and LCx on 03/15/17 + left atrial appendage thrombus c/b cardiac shoc k/respiratory failure requiring Tx to [facility]; was on ECMO, who was a transfer this time from [facility] on 10/03 for acute respiratory [...] % on high-flow nasal ca nnula, heated, spice blender system at flow rate 14L/min Temp [...] c/b card iogenic shock s/p ECMO in [facility] - troponin peaked to [...] Mobley will consult with cardiology team at [facility] Re: planning for revascularization today [...] as outlined above. Destinee Trejo 10/08/2017 12:20 [facility] Destinee Trejo MD - 10/07/2017 1438 PSTFormatting of this note may be different from the original. [facility] PMG Hospitalist Progress Note Bob Hood is a 61 y.o. male INTERVAL HPI: He is a 61 y.o. male with a history of CAD with recent anterior wall PR, post PTCA and sten ts of the left main, LAD and LCx on 03/15/17 + left atrial appendage thrombus c/b cardiac shoc k/respiratory failure requiring Tx to [facility]; was on ECMO, who was a transfer this time from [facility] on 10/03 for acute respiratory [...] c/b card iogenic shock s/p ECMO in [facility] - troponin peaked to 26 - [facility] on 10/03- severe in-stent stenosis [...] Mobley will consult with cardiology team at [facility] Re: planning for revascularization 4. [...] as outlined above. Destinee Trejo 10/07/2017 14:38 [facility] Delmer Mobley MD - 10/07/2017 1207 [...] RECOMMENDATIONS: Continue current medical management We'll contact [facility] regarding transfer and revascularization plann [...] orally BID Carlos Graham PharmD 10/07/2017 9:59 [facility] IV TO PO Collaborative Practice Protocol [...] troponin Will consult with cardiology team at [facility] regarding planning for coronary revascularization prior to discharge home I appreciate the opportunity of participating in the care of this patient. Delmer Mobley MD, 10/06/2017 17:17 Destinee Trejo MD - 10/06/2017 1245 PSTFormatting of this note may be different from the original. [facility] PMG Hospitalist Progress Note Bob Hood is a 61 y.o. male INTERVAL HPI: He is a 61 y.o. male with a history of CAD with recent anterior wall PR, post PTCA and sten ts of the left main, LAD and LCx on 03/15/17 + left atrial appendage thrombus c/b cardiac shoc k/respiratory failure requiring Tx to [facility]; was on ECMO, who was a transfer this time from [facility] on 10/03 for acute respiratory [...] 95 % on high-flow nasal can nula, spice blender system, heated at flow rate 14L/min [...] now present Confirmed by ZOHRA BREWER, FLORY ([id number]) on 10/06/2017 7:17:27 AM POC Glucose Result [...] c/b card iogenic shock s/p ECMO in [facility] - troponin peaked to 26 - [facility] on 10/03- severe in-stent stenosis [...] as outlined above. Destinee Trejo 10/06/2017 12:45 [facility] Clinton Burnett MD - 10/05/2017 2117 PSTHospitalist [...] HOSPITAL DAY NUMBER: [id number] PRIMARY CARE: Chato Matsno MD CARDIOLOGY PROGRESS NOTE Patient was extubated [...] 10/04/2017 7:03 PM HISTORY: acute respiratory failure Leondies rison: October 03, 2017 TECHNIQUE: A single [...] anti platelet therapyClinton Burnett MD - 10/05/2017 0973 PSTFormatting of this note may be different from the original. [facility] PMG Hospitalist Progress Note Bob [...] as outlined above. Clinton Burnett 10/05/2017 9:39 [facility] Portions of this chart may have been created with [employer] voice recognition software. Occasi onal wrong-word or sound-alike substitutions may have occurred due to the inherent canseco itations of voice recognition software. Please read the chart carefully and recognize, using context, where these substitutions have occurred Clinton Burnett MD - 10/04/2017 1241 PSTFormatting of this note may be different from the o riginal. [facility] PMG Hospitalist Progress Note Bob [...] as outlined above. Clinton Burnett 10/04/2017 12:42 [facility] Portions of this chart may have been created with [employer] voice recognition software. Occasi onal wrong-word [...] 40 mg 40 mg Intravenous Daily Ganga iLnd MD 40 mg at 10/04/17 0808 propofol [...] :consider ischemia/infarction Confirmed by ZOHRA BREWER, FLORY ([id number]) on 10/04/2017 10:35:54 AM Influenza A PCR [...] 10/03/2017 5.0 5.0 - 8.0 Final Specific [place] 10/03/2017 1.006 1.001 - 1.030 Final PROTEIN [...] due to: Intubated X Pharmacy list names: [facility] [place] and [facility] X [employer] insurance reported information X [...] as needed for suspected pain medication overdose Nuerxjx-qyvvcwvwbnpda-ylfcckcv 250-250-65 mg tab 1 tab by mouth [...] Prior to Admission Sig: Patient taking differently TUFTER HAND as: Lisinopril 5 mg tab 15 mg by mouth daily 5 mg by mouth every morning and 10 mg every eveni ng Medication review performed and electronically signed by Melody Falcon, [employer] 20:26 Reviewed by Kelly Pitts, PharmD 10/03/2017 21:22 Delmer Mobley MD - 10/03/2017 8803 PSTCARDIOLOGY FOLLOW-UP PROGRESS NOTE The patient was [...] | | | | | | [place] [address] | | | | | | [phone] | | | | | | | | +--------+ + + + + | 12/24/ | Office | Cardiac | Randy Figueroa, | | | 2017 | Visit | Rehabilitation | MD [address]av[address] | | | | | | [place], | | | | | | [place] [address] | | | | | | [phone] | | | | | | | | +--------+ + + + + | 12/31/ | Office | Cardiac | Randy Figueroa, | | | 2017 | Visit | Rehabilitation | MD [address] | | | | | | [place], | | | | | | [place] [address] | | | | | | [phone] | | | | | | | | +--------+ + + + + | 01/07/ | Office | Cardiac | Randy Figueroa, | | | 2017 | Visit | Rehabilitation | MD Jav[address] | | | | | | [place], | | | | | | [place] [address] | | | | | | [phone] | | | | | | | | +--------+ + + + + | 01/13/ | Clinical | Cardiology | | | | 2017 | Support | | | | +--------+ + + + + | 01/13/ | Office | Cardiology | Jenny, | | | 2017 | Visit | | [address] | | | | | | [address] [place], | | | | | | [place] [address] | | | | | | [phone] | | | | | | | | +--------+ + + + + | 01/14/ | Office | Cardiac | Randy Figueroa, | | | 2017 | Visit | Rehabilitation | MD [address] | | | | | | [place], | | | | | | [place] [address] | | | | | | [phone] | | | | | | | | +--------+ + + + + | 01/21/ | Office | Cardiac | Randy Figueroa, | | | 2017 | Visit | Rehabilitation | MD [address] | | | | | | [place], | | | | | | [place] [address] | | | | | | [phone] | | | | | | | | +--------+ + + + + | 01/28/ | Office | Cardiac | Randy Figueroa, | | | 2017 | Visit | Rehabilitation | MD [address] | | | | | | [place], | | | | | | [place] [address] | | | | | | [phone] | | | | | | | | +--------+ + + + + | 02/04/ | Office | Cardiac | Randy Figueroa, | | | 2017 | Visit | Rehabilitation | MD [address] | | | | | | [place], | | | | | | [place] [address] | | | | | | [phone] | | | | | | | | +--------+ + + + + | 02/11/ | Office | Cardiac | Randy Figueroa, | | | 2017 | Visit | Rehabilitation | MD [address] | | | | | | [place], | | | | | | [place] [address] | | | | | | [phone] | | | | | | | | +--------+ + + + + | 02/18/ | Office | Cardiac | Randy Figueroa, | | | 2017 | Visit | Rehabilitation | MD [address] | | | | | | [place], | | | | | | [place] [address] | | | | | | [phone] | | | | | | | | +--------+ + + + + | 02/24/ | Procedure | Physical Medicine | Prosper Esteves | | | 2017 | visit | and Rehabilitation | MD [address] | | | | | | [place] | | | | | | [address] | | | | | | | | +--------+ + + + + | 02/25/ | Office | Cardiac | Randy Figueroa, | | | 2017 | Visit | Rehabilitation | MD Jav[address] | | | | | | [place], | | | | | | [place] [address] | | | | | | [phone] | | | | | | | | +--------+ + + + + | 03/04/ | Office | Cardiac | Randy Figueroa, | | | 2017 | Visit | Rehabilitation | MD [address] | | | | | | [place], | | | | | | [place] [address] | | | | | | [phone] | | | | | | | | +--------+ + + + + | 03/11/ | Office | Cardiac | RahulyazshirazLindarahul, | | | 2017 | Visit | Rehabilitation | [address] | | | | | | [place], | | | | | | [place] [address] | | | | | | [phone] | | | | | | | [...] | + + + | Blood | [facility] [address] | | | [place] [address] | + + + POC Glucose (10/10/2017 0636) + +-------+ + | Component | Value | Ref Range | + +-------+ + | Glucose, POC | 108 | 70 - 109 mg/dL | + +-------+ + + + + | Specimen | Performing Laboratory | + + + | Blood | [facility] [address] | | | [place] [address] | + + + POC Glucose (10/09/20172041) + +---------+ + | Component | Value | Ref Range | + +---------+ + | Glucose, POC | 125 (H) | 70 - 109 mg/dL | + +---------+ + + + + | Specimen | Performing Laboratory | + + + | Blood | [facility] [address] | | | [place] [address] | + + + POC Glucose (10/09/2017 1659) + +-------+ + | Component | Value | Ref Range | + +-------+ + | Glucose, POC | 97 | 70 - 109 mg/dL | + +-------+ + + + + | Specimen | Performing Laboratory | + + + | Blood | [facility] [address] | | | [place] [address] | + + + POC Glucose (10/09/2017 1155) + +---------+ + | Component | Value | Ref Range | + +---------+ + | Glucose, POC | 148 (H) | 70 - 109 mg/dL | + +---------+ + + + + | Specimen | Performing Laboratory | + + + | Blood | [facility] [address] | | | [place] [address] | + + + POC Glucose (10/09/2017637) + +-------+ + | Component | Value | Ref Range | + +-------+ + | Glucose, POC | 109 | 70 - 109 mg/dL | + +-------+ + + + + | Specimen | Performing Laboratory | + + + | Blood | [facility] [address] | | | [place] [address] | + + + Extra Lavender Top Tube (10/09/2017 0505) + +-------+ + | Component | Value | Ref Range | + +-------+ + | Extra Lavender Top | Done | | | Tube | | | + +-------+ + + + + | Specimen | Performing Laboratory | + + + | Blood | [facility] [address] | | | [place] [address] | + + + Basic Metabolic Panel [...] GLOMERULAR FILTRATION | >=60 mL/min/1.73m2 | | GAMBIAN | RATE,ESTIMATED mL/min/1.70a4Rnmm than | | | | 60 Chronic [...] | + + + | Blood | [facility] [address] | | | [place] [address] | + + + POC Glucose (10/08/20172110) + +---------+ + | Component | Value | Ref Range | + +---------+ + | Glucose, POC | 120 (H) | 70 - 109 mg/dL | + +---------+ + + + + | Specimen | Performing Laboratory | + + + | Blood | [facility] [address] | | | [place] [address] | + + + POC Glucose (10/08/20171656) + +-------+ + | Component | Value | Ref Range | + +-------+ + | Glucose, POC | 96 | 70 - 109 mg/dL | + +-------+ + + + + | Specimen | Performing Laboratory | + + + | Blood | [facility] [address] | | | [place] [address] | + + + POC Glucose (10/08/2017 1115) + +---------+ + | Component | Value | Ref Range | + +---------+ + | Glucose, POC | 146 (H) | 70 - 109 mg/dL | + +---------+ + + + + | Specimen | Performing Laboratory | + + + | Blood | [facility] [address] | | | [place] [address] | + + + POC Glucose (10/08/2017627) + +-------+ + | Component | Value | Ref Range | + +-------+ + | Glucose, POC | 99 | 70 - 109 mg/dL | + +-------+ + + + + | Specimen | Performing Laboratory | + + + | Blood | [facility] [address] | | | [place] [address] | + + + POC Glucose (10/07/20172036) + +---------+ + | Component | Value | Ref Range | + +---------+ + | Glucose, POC | 115 (H) | 70 - 109 mg/dL | + +---------+ + + + + | Specimen | Performing Laboratory | + + + | Blood | [facility] [address] | | | [place] [address] | + + + POC Glucose (10/07/2017 1627) + +---------+ + | Component | Value | Ref Range | + +---------+ + | Glucose, POC | 110 (H) | 70 - 109 mg/dL | + +---------+ + + + + | Specimen | Performing Laboratory | + + + | Blood | [facility] [address] | | | [place] [address] | + + + POC Glucose (10/07/2017 1147) + +---------+ + | Component | Value | Ref Range | + +---------+ + | Glucose, POC | 114 (H) | 70 - 109 mg/dL | + +---------+ + + + + | Specimen | Performing Laboratory | + + + | Blood | [facility] [address] | | | [place] [address] | + + + POC Glucose (10/07/2017 0738) + +-------+ + | Component | Value | Ref Range | + +-------+ + | Glucose, POC | 104 | 70 - 109 mg/dL | + +-------+ + + + + | Specimen | Performing Laboratory | + + + | Blood | [facility] [address] | | | [place] [address] | + + + Magnesium (10/07/2017 0351) + +-------+ + | Component | Value | Ref Range | + +-------+ + | MG | 1.9 | 1.8 - 2.5 mg/dL | + +-------+ + + + + | Specimen | Performing Laboratory | + + + | Blood | [facility] [address] | | | [place] [address] | + + + Basic Metabolic Panel [...] GLOMERULAR FILTRATION | >=60 mL/min/1.73m2 | | GAMBIAN | RATE,ESTIMATED mL/min/1.35j2Wdnr than | | | | 60 Chronic [...] + + + | Blood | [facility] | | | [place] [address] | + + + CBC with Differential [...] | + + + | Blood | [facility] [address] | | | [place] [address] | + + + POC Blood Gases [...] Laboratory | + + + | | [facility] [address] | | | [place] [address] | + + + XR Chest AP [...] + + + | Blood | [facility] [address] | | | [place] [address] | + + + POC Glucose (10/06/20172040) + +-------+ + | Component | Value | Ref Range | + +-------+ + | Glucose, POC | 101 | 70 - 109 mg/dL | + +-------+ + + + + | Specimen | Performing Laboratory | + + + | Blood | [facility] [address] | | | [place] [address] | + + + Troponin I (10/06/20171751) [...] | | | | Yuki [employer] | | | | Cardiology [...] | + + + | Blood | [facility] [address] | | | [place] [address] | + + + POC Glucose (10/06/2017 1632) + +---------+ + | Component | Value | Ref Range | + +---------+ + | Glucose, POC | 130 (H) | 70 - 109 mg/dL | + +---------+ + + + + | Specimen | Performing Laboratory | + + + | Blood | [facility] [address] | | | [place] [address] | + + + POC Glucose (10/06/20171127) + +---------+ + | Component | Value | Ref Range | + +---------+ + | Glucose, POC | 120 (H) | 70 - 109 mg/dL | + +---------+ + + + + | Specimen | Performing Laboratory | + + + | Blood | [facility] [address] | | | [place] [address] | + + + POC Glucose (10/06/2017831) + +---------+ + | Component | Value | Ref Range | + +---------+ + | Glucose, POC | 110 (H) | 70 - 109 mg/dL | + +---------+ + + + + | Specimen | Performing Laboratory | + + + | Blood | [facility] [address] | | | [place] [address] | + + + XR Chest AP [...] | + + + | Blood | [facility] [address] | | | [place] [address] | + + + Basic Metabolic Panel [...] GLOMERULAR FILTRATION | >=60 mL/min/1.73m2 | | GAMBIAN | RATE,ESTIMATED mL/min/1.29t5Bcrh than | | | | 60 Chronic [...] | + + + | Blood | [facility] [address] | | | [place] [address] | + + + CBC with Differential [...] | + + + | Blood | [facility] [address] | | | [place] [address] | + + + POC Glucose (10/05/20172037) + +---------+ + | Component | Value | Ref Range | + +---------+ + | Glucose, POC | 126 (H) | 70 - 109 mg/dL | + +---------+ + + + + | Specimen | Performing Laboratory | + + + | Blood | [facility] | | | [place] [address] | + + + ECG 12 lead [...] | | | | FLORY العلي MD ([id number]) on 10/06/2017 | | | | 7:17:27 [...] FLORY العلي MD | | | | ([id number]) on 10/07/2017 7:10:25 AM | | + [...] Laboratory | + + + | | [facility] [address] | | | [place] [address] | + + + IZAIAH (10/05/20171055) + + + | Specimen | Performing Laboratory | + + + | | [facility] | + + + + + | Narrative | + + | Gastroenterology Patient Name: Bob Hood Procedure Date: 10/05/2017 10:56 AM | | Date of : 1955 Admit Type: | | Inpatient Age: 61 Room: [place] [address] Gender: Male Note Status: Finalized Attending MD: | | Terry Weir MD Procedure: Upper GI endoscopy | | Indications: Suspected upper gastrointestinal bleeding | | Providers: Terry Weir MD, Gil Tam RN, Elizabeth Patel | | ALFONSO Rivers, Siddharth Bradley CMA, [place] Campbell | | Babita, Service Operator, Yong Napier MD (Anesthesia | | Staff) [...] nurse, the anesthesiologist and the | | pharmacy laboratory technician in the procedure room. Mental Status [...] In: 11:00:34 AM Scope Out: 11:11:30 AM [facility] | | [facility], [address] [place] [address] | + + XR Chest AP Portable [...] + + + | Body Fluid | [facility] [address] | | | [place] [address] | + + + Procalcitonin (10/05/2017 0427) [...] | + + + | Blood | [facility] [address] | | | [place] [address] | + + + Basic Metabolic Panel [...] GLOMERULAR FILTRATION | >=60 mL/min/1.73m2 | | GAMBIAN | RATE,ESTIMATED mL/min/1.61s7Kkys than | | | | 60 Chronic [...] + + + | Blood | [facility] [address] | | | [place] [address] | + + + CBC with Differential [...] | + + + | Blood | [facility] [address] | | | [place] [address] | + + + POC Glucose (10/04/20172111) + +-------+ + | Component | Value | Ref Range | + +-------+ + | Glucose, POC | 108 | 70 - 109 mg/dL | + +-------+ + + + + | Specimen | Performing Laboratory | + + + | Blood | [facility] [address] | | | [place] [address] | + + + XR Chest AP [...] + + + | Blood | [facility] [address] | | | [place] [address] | + + + ECG 12 lead [...] | | | | FLORY العلي MD ([id number]) on 10/05/2017 | | | | 7:23:04 [...] + + + | Blood | [facility] [address] | | | [place] [address] | + + + Extra Lavender Top Tube (10/04/2017 1443) + +-------+ + | Component | Value | Ref Range | + +-------+ + | Extra Lavender Top | Done | | | Tube | | | + +-------+ + + + + | Specimen | Performing Laboratory | + + + | Blood | [facility] SYSTEMS - LABORATORY Javid Crespo | | | [place] [address] | + + + Troponin I (10/04/2017 [...] | | | | previous results. [employer] | | | | Cardiology [...] | + + + | Blood | [facility] Javid Crespo | | | [place] [address] | + + + Blood Gas, Arterial [...] + + + | Blood | [facility] Javid Crespo | | | [place] [address] | + + + + + | Narrative | + + | SIMV 16 TV 550, PS+ 10, PEEP +5, 40%, ETCO2 35 WNN195% | + + POC Glucose (10/04/2017 1223) + +-------+ + | Component | Value | Ref Range | + +-------+ + | Glucose, POC | 106 | 70 - 109 mg/dL | + +-------+ + + + + | Specimen | Performing Laboratory | + + + | Blood | [facility] Javid Crespo | | | [place] [address] | + + + CBC with Differential [...] | + + + | Blood | [facility] [address] | | | [place] [address] | + + + Magnesium (10/04/2017 0343) + +-------+ + | Component | Value | Ref Range | + +-------+ + | MG | 1.9 | 1.8 - 2.5 mg/dL | + +-------+ + + + + | Specimen | Performing Laboratory | + + + | Blood | [facility] [address] | | | [place] [address] | + + + Basic Metabolic Panel [...] GLOMERULAR FILTRATION | >=60 mL/min/1.73m2 | | GAMBIAN | RATE,ESTIMATED mL/min/1.55b9Bftl than | | | | 60 Chronic [...] | + + + | Blood | [facility] Javid MamtaFletcher [address] | | | [place] [address] | + + + Troponin I (10/03/2017 [...] | | | | previous results. [employer] | | | | Cardiology [...] | + + + | Blood | [facility] [address] | | | [place] [address] | + + + POC Glucose (10/03/20172145) + +---------+ + | Component | Value | Ref Range | + +---------+ + | Glucose, POC | 115 (H) | 70 - 109 mg/dL | + +---------+ + + + + | Specimen | Performing Laboratory | + + + | Blood | [facility] [address] | | | [place] [address] | + + + Basic Metabolic Panel [...] GLOMERULAR FILTRATION | >=60 mL/min/1.73m2 | | GAMBIAN | RATE,ESTIMATED mL/min/1.24f6Ykfo than | | | | 60 Chronic [...] | + + + | Blood | [facility] Javid Crespo | | | [place] [address] | + + + Procalcitonin (10/03/2017 1545) [...] | + + + | Blood | [facility] Javid Crespo | | | [place] [address] | + + + Troponin I (10/03/2017 [...] Juan Srinivasan. | | | | [employer] ([employer]) | | | [...] | + + + | Blood | [facility] Javid Crespo | | | [place] [address] | + + + CV CARDIAC PROCEDURE (10/03/2017 1518) + + | Narrative | + + | Delmer Dai MD 10/03/2017 16:25 CARDIAC CATHETERIZATION REPORT DATE | | OF PROCEDURE: 10/03/17 PRECATHETERIZATION INFORMED CONSENT : Yes | | TIMEOUT Before start of procedure done: Yes CRIBBING SETTER: Delmer Mobley M.D., | | [place] PRIMARY PHYSICIAN: Chato Matson MD PROCEDURES PERFORMED: Left | | heart catheterization, selective coronary arteriography INDICATIONS | | : 61-year-old gentleman presenting with acute hypoxic respiratory failure, new left | | bundle branch block, increasing troponin levels, history of coronary artery PCI and | | prior anterior myocardial infarction ARTERIAL ACCESS: Right femoral artery 6 Martiniquais | | CLOSURE DEVICE:. Sheath left in [...] Seldinger technique and a 6 | | Martiniquais sheath was inserted. Selective coronary arteriography was performed using 6 | | Martiniquais Kymberly right 4 and left 4 catheters. [...] instability we will transfer the patient to [place] for consideration of | | urgent coronary revascularization. Delmer Mobley M.D., F.A.C.C. | | [place], [place] | | | + + Culture, Blood (10/03/2017 1315) + + + + | Component | Value | Ref Range | + + + + | Culture | No growth after 5 days incubation. | | + + + + + + + | Specimen | Performing Laboratory | + + + | Blood - Peripheral | [facility] Javid Crespo | | Blood | [place] [address] | + + + ECG 12 lead [...] ZOHRA BREWER, | | | | FLORY ([id number]) on 10/04/2017 10:35:54 AM | | | [...] | + + + | Blood | [facility] Javid Crespo | | | [place] [address] | + + + XR Chest AP [...] + + | Blood - Line | [facility] Javid MamtaFletcher Crespo | | | [place] [address] | + + + Slide Review, Peripheral [...] | + + + | Blood | [facility] Javid Crespo | | | [place] [address] | + + + + + | [...] | + + + | Blood | [facility] [address] | | | [place] [address] | + + + Troponin I (10/03/2017 [...] | | | | myocardial infarction. [employer] | | | | of Cardiology [...] | + + + | Blood | [facility] [address] | | | [place] [address] | + + + B Type Natriuretic Peptide (10/03/20171128) + +---------+ + | Component | Value | Ref Range | + +---------+ + | BNP | 495 (H) | <100 pg/mL | + +---------+ + + + + | Specimen | Performing Laboratory | + + + | Blood | [facility] Javid Crespo | | | [place], [place] [address] | + + + Hepatic Function Panel [...] | + + + | Blood | [facility] Crespo | | | [place] [address] | + + + Protime INR (10/03/20171128) [...] | + + + | Blood | [facility] Javid Crespo | | | [place] [address] | + + + Basic Metabolic Panel [...] GLOMERULAR FILTRATION | >=60 mL/min/1.73m2 | | GAMBIAN | RATE,ESTIMATED mL/min/1.76k9Mews than | | | | 60 Chronic [...] + + + | Blood | [facility] [address] | | | [place] [address] | + + + CBC with Differential [...] + + + | Blood | [facility] [address] | | | [place] [address] | + + + ECHO Complete (10/03/2017 1118) + +-------+ + | Component | Value | Ref Range | + +-------+ + | LVEF-TTE | 39 | | | TRANSTHORACIC ECHO | | | + +-------+ + + + | Narrative | + + | Transthoracic Echocardiography Report (TTE) Demographics Patient | | Name MIKE VELASQUEZ Room Number 458 | | J Patient [id number] Date of | | Study 10/03/2017 Number Visit Number [id number] | | Referring Physician BENEDICT RAYGOZA Number | | Date of 1955 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 | | RAJIV LORENZO Age 61 year(s) | | Interpreting DELMER MOBLEY MD, | | Informatics Scientist | | [facility] Gender Male 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 | | Procedure Type of Study [...] | Electronically signed by DELMER MOBLEY MD, [facility](Interpreting physician) on | | 10/03/2017 12:59 [...] 42.65 ml | | | | EF Yjehhaomt17% Left Ventricle Diastolic Dimension: 5.92 cm Septum [...] | J | | | | Patient [id number] Date of Study 10/03/2017 | | Number | | | | Visit Number [id number] | | | | Referring Physician BENEDICT RAYGOZA | | Number | | | | Date of 1955 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 VANCE [address]CS | | | | Age 61 year(s) Interpreting DELMER MOBLEY MD, | | Informatics Scientist FAC | | | | Gender Male Nurse | | | | Stress Service Operator | | | | Procedure | [...] | Electronically signed by DELMER MOBLEY MD, [facility](Interpreting | | physician) on 10/03/2017 12:59 [...] LA Volume: 42.65 ml | | EF Nezgjwdok63% | | | | Left Ventricle | [...] | + + + | Blood | [facility] Javid Crespo | | | [place] [address] | + + + Culture, MRSA (10/03/2017 1039) + + + + | Component | Value | Ref Range | + + + + | Culture | Negative for MRSA by chromogenic agar | | | | method | | + + + + + + + | Specimen | Performing Laboratory | + + + | Stool | [facility] Javid Crespo | | | [place] [address] | + + + Culture, Respiratory, Lower, [...] + + + | Respiratory - | [facility] Javid Crespo | | Sputum, expectorated | [place] [address] | + + + Influenza A and [...] + + + | Respiratory - | [facility] Javid Crespo | | Nasopharynx | [place] [address] | + + + Campylobacter Ag,Qual (10/03/2017 1039) + + + + | Component | Value | Ref Range | + + + + | Campylobacter AG, | Negative | Negative | | Qual | | | + + + + + + + | Specimen | Performing Laboratory | + + + | Stool | [facility] Javid Crespo | | | [place] [address] | + + + Culture, Stool Result [...] | + + + | Stool | [facility] Crespo | | | [place] [address] | + + + Shigatoxin 1 and [...] + + + | Stool | [facility] Javid Crespo | | | [place] [address] | + + + Culture, Stool (10/03/2017 1039) + + + | Specimen | Performing Laboratory | + + + | Stool | [facility] Javid Crespo | | | [place] [address] | + + + + + | Narrative | + + | The following orders were created for panel order Culture, Stool. | | Procedure | | Abnormality Status | | --------- | | ------ Shigatoxin 1 | | and 2[[id number]] Normal Final | | result Culture, Stool | | Result[[id number]] Final | | result Campylobacter | | Ag,Qual[[id number]] Normal Final | | result Please view [...] | + + + | Stool | [facility] [address] | | | [place] [address] | + + + Ova and Parasite [...] Stool | REFERENCE LAB [facility] [address] [facility] | | | [place] [address] | + + + + + | Narrative | + + | Performed at: [address] [id number] Lab | | Director: Yesenia Gee MD, Phone: [phone] | + + Fecal leukocytes (10/03/2017 1039) + + + + | Component | Value | Ref Range | + + + + | Lactoferrin, Qual | Negative | Negative | + + + + + + + | Specimen | Performing Laboratory | + + + | Stool | [facility] Javid Crespo | | | [place] [address] | + + + Urinalysis with Microscopic [...] | + + + + | Specific [place] | 1.006 | 1.001 - 1.030 | [...] | + + + | Urine | [facility] Javid Crespo | | | [place] [address] | + + + LABS - EXTERNAL [...] | | | | First dose on [facility] 10/08/17 at 0915 | | | | [...] scheduled: AC, | | | NPO, Daytime 7186-3058 Use NIGHT | | | DOSE for doses scheduled: | | | HS, 3AM, Nighttime 8228-3560 | | + +---+ | | | [...]
--- OUTSIDE RECORDS SUMMARY | ~2017-12-16 | XMS | Encounter Summary ---
Demographics + + + | Address | [address] | | | [place] [address] | + + + | Home Phone [...] + + | Author | [facility] | | | and [place] | + + + | Organization | [facility] | | | and [place] | + + + | Address | Unknown | + + + | Phone | Unavailable | + + + Support + + + + + | Name | Relationship | Address | Phone | + + + + + | [place] | ECON | [address] | | | | | [address] | | | | | [address] | | + + + + + Care Team Providers + +------+ + | Care Client Support Professional Name | Role | Phone | [...] W | defibrillator | | | | [address] [place], | [address] [place] | reprogramming/check | | | | [place] [address] | [place] [address] | (Primary Dx); WIG STYLIST-D | | | | [phone] | [phone] | (AICD) Medtronic | | | | | | 10/16/17 [place] Dar[place]; | | | | | | [...] | | | | | | [place] [address] | | | | | | [phone] | | | | | | | | +--------+ + + + + | 12/24/ | Office | Cardiac | Randy Figueroa, | | | 2017 | Visit | Rehabilitation | MD Javid Crespo | | | | | | [place], | | | | | | [place] [address] | | | | | | [phone] | | | | | | | | +--------+ + + + + | 12/31/ | Office | Cardiac | Randy Figueroa, | | | 2017 | Visit | Rehabilitation | MD Javid Crespo | | | | | | [place], | | | | | | [place] [address] | | | | | | [phone] | | | | | | | | +--------+ + + + + | 01/07/ | Office | Cardiac | Randy Figueroa, | | | 2017 | Visit | Rehabilitation | MD Javid Crespo | | | | | | [place], | | | | | | [place] [address] | | | | | | [phone] | | | | | | | [...] | | | | | | [place] [address] | | | | | | [phone] | | | | | | | | +--------+ + + + + | 01/14/ | Office | Cardiac | Randy Figueroa, | | | 2017 | Visit | Rehabilitation | MD [address] | | | | | | [place], | | | | | | [place] [address] | | | | | | [phone] | | | | | | | | +--------+ + + + + | 01/21/ | Office | Cardiac | Randy Figueroa, | | | 2017 | Visit | Rehabilitation | MD [address] | | | | | | [place], | | | | | | [place] [address] | | | | | | [phone] | | | | | | | | +--------+ + + + + | 01/28/ | Office | Cardiac | Randy Figueroa, | | | 2017 | Visit | Rehabilitation | MD [address] | | | | | | [place], | | | | | | [place] [address] | | | | | | [phone] | | | | | | | | +--------+ + + + + | 02/04/ | Office | Cardiac | Randy Figueroa, | | | 2017 | Visit | Rehabilitation | MD [address] | | | | | | [place], | | | | | | [place] [address] | | | | | | [phone] | | | | | | | | +--------+ + + + + | 02/11/ | Office | Cardiac | Randy Figueroa, | | | 2017 | Visit | Rehabilitation | MD [address] | | | | | | [place], | | | | | | [place] [address] | | | | | | [phone] | | | | | | | | +--------+ + + + + | 02/18/ | Office | Cardiac | Randy Figueroa, | | | 2017 | Visit | Rehabilitation | MD [address] | | | | | | [place], | | | | | | [place] [address] | | | | | | [phone] | | | | | | | | +--------+ + + + + | 02/24/ | Procedure | Physical Medicine | Prosper Esteves | | | 2017 | visit | and Rehabilitation | MD [address] | | | | | | [place] | | | | | | [address] | | | | | | | | +--------+ + + + + | 02/25/ | Office | Cardiac | Randy Figueroa, | | | 2017 | Visit | Rehabilitation | MD Javid Crespo | | | | | | [place], | | | | | | [place] [address] | | | | | | [phone] | | | | | | | | +--------+ + + + + | 03/04/ | Office | Cardiac | Randy Figueroa, | | | 2017 | Visit | Rehabilitation | MD Javid Crespo | | | | | | [place], | | | | | | [place] [address] | | | | | | [phone] | | | | | | | | +--------+ + + + + | 03/11/ | Office | Cardiac | Randy Figueroa, | | | 2017 | Visit | Rehabilitation | [address] | | | | | | [place], | | | | | | [place] [address] | | | | | | [phone] | | | | | | | [...] Interrogation CANCELED: Device Interrogation - Remote 2. WIG STYLIST-D | | (AICD) Medtronic 10/16/17 [facility] Stecker Z95.810 V45.02 Device Interrogation | | [...] implantable cardiac defibrillator | + + | WIG STYLIST-D (AICD) Medtronic 10/16/17 EUL[facility] Darby | + + | Ischemic cardiomyopathy | + + | Other specified forms of chronic ischemic heart disease | + +"
[~2017-12-16 11:58] MED LIST changes: +FUROSEMIDE20 MG PO; +POTASSIUM CHLO20 ME1 PO
[2017-12-16] MEDS ORDERED: METHYLPREDNISOLO4 M1 PO (12:39)
[2017-12-16] MEDS ORDERED: TESSALON PERLE100 MG PO (12:39)
[2017-12-16] MEDS ORDERED: ZITHROMAX250 MG PO (12:39)
== END 2017-12-16 13:21 | disposition home or self-care (01) ==
LOC: ED 11:58
DX: J40 Bronchitis, not specified as acute or chronic (principal); I10 Essential (primary) hypertension; I25.2 Old myocardial infarction; E78.00 Pure hypercholesterolemia, unspecified; Z87.891 Personal history of nicotine dependence; Z79.899 Other long term (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; Z79.82 Long term (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; Z79.84 Long term (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 of oral hypoglycemic drugs
CPT/HCPCS: 99283

== ENCOUNTER 2018-01-12 21:18 | Emergency (ER) | payer OTHER ==
[~2018-01-12] VITALS: Ht 175.3 cm; Wt 93.0 kg
[~2018-01-12 21:18] MED LIST changes: +METHYLPREDNISOLO4 M1 PO; +TESSALON PERLE100 MG PO; +ZITHROMAX250 MG PO
--- NOTE | 2018-01-13 07:25 | EKG ---
[facility] [address] [place] [address] Signed Atrial-sensed ventricular-paced rhythm Abnormal ECG When compared with ECG of 04-DEC-2017 22:27, Vent. rate has decreased BY 7 BPM Confirmed by NEREYDA VELEZ MD ([id number]) on 01/13/2018 7:25:36 AM Electronically Signed By: NEREYDA VELEZ MD 01/13/18 0725 PATIENT NAME: RON MCKEON RCAHEL Electrocardiogram DATE OF : 53 PHYSICIAN: NEREYDA VELEZ MD REPORT #: [id number] REPORT IS CONFIDENTIAL AND NOT TO BE RELEASED WITHOUT AUTHORIZATION
== END 2018-01-12 23:43 | disposition home or self-care (01) ==
LOC: ED 21:18
DX: R00.2 Palpitations (principal); I10 Essential (primary) hypertension; Z87.891 Personal history of nicotine dependence; Z79.899 Other long term (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; Z79.82 Long term (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
CPT/HCPCS: 71045; 80053; 84484; 85025; 85610; 85730; 93005; 93010; 99283

== ENCOUNTER 2018-04-17 06:30 | Emergency (ER) | payer OTHER ==
[~2018-04-17] VITALS: Ht 175.3 cm; Wt 98.9 kg
--- OUTSIDE RECORDS SUMMARY | ~2018-04-17 | XMS | Encounter Summary ---
Demographics + + + | Address | [address] | | | [place] [address] | + + + | Home Phone | | + + + | Preferred Language | Unknown | + + + | Marital Status | | + + + | Jainism Affiliation | Unknown | + + + [...] + | [place] | ECON | [address] | | | | | #[place] | | | | | [address] | | + + + + + Care Team Providers + +------+ + | Care Makeup Editor Name | Role | Phone | + [...] + + | 04/06/ | Telephone | [facility] | Carolina Lindarisa, | Blood Pressure | | 2018 | | CARDIOLOGY [address] | | | | | [place], | [place], | | | | | [place] [address] | [place] [address] | | | | | [phone] | [phone] | | | | | | | [...] as of this encounter Plan of Treatment +--------+---------+ + + + | Date | Type | Specialty | Care Team | Description | +--------+---------+ + + + | 04/22/ | Office | Cardiac | Randy Figueroa, | | | 2017 | Visit | Rehabilitation | MD Javid Crespo | | | | | | [place], | | | | | | [place] [address] | | | | | | [phone] | | | | | | | | | | | | Maria Esther Fields RN | | +--------+---------+ + + + | 06/02/ | Office | Cardiology | Jenny, | | | 2017 | Visit | | [address] | | | | | | [place], | | | | | | [place] [address] | | | | | | [phone] | | | | | | | | +--------+---------+ + + + as of this encounter Visit Diagnoses Not on filein this encounter"
--- OUTSIDE RECORDS SUMMARY | ~2018-04-17 | XMS | Encounter Summary ---
Demographics + + + | Address | [address] | | | [place] [address] | + + + | Home Phone [...] + | [place] | ECON | [address] | | | | | #[place] | | | | | [address] | | + + + + + Care Team Providers + +------+ + | Care Brine Mixer Operator Name | Role | Phone | [...] Ischemic | MD Lauren | [address] | | | | | cardiomyopat | [address] | [place], | | | | | hy | [address] | [place] | | | | | Procedures | [place], | [address] | | | | | ECHO | [place] [address] | Phone: | | | | | Complete [place] | Phone: | [phone] | | | | | ECHO HEART | [phone] | Fax: | | | | | [facility] | Fax: | [phone] | | | | | MPLETE W | [phone] | | | | | | DOPPLER [...] Ischemic | MD Lauren | [address] | | | | | cardiomyopat | [address] | [place], | | | | | hy | [address] | [place] | | | | | Procedures | [place], | [address] | | | | | ECHO | [place] [address] | Phone: | | | | | Complete [place] | Phone: | [phone] | | | | | ECHO HEART | [phone] | Fax: | | | | | [facility] | Fax: | [phone] | | | | | MPLETE W | [phone] | | | | | | DOPPLER [...] Ischemic | MD Lauren | [address] | | | | | cardiomyopat | [address] | [place], | | | | | hy | [address] | [place] | | | | | Procedures | [place], | [address] | | | | | ECHO | [place] [address] | Phone: | | | | | Complete [place] | Phone: | [phone] | | | | | ECHO HEART | [phone] | Fax: | | | | | [facility] | Fax: | [phone] | | | | | MPLETE W | [phone] | | | | | | DOPPLER [...] + + | 04/02/ | Hospital | [facility] | Lauren Figueroa, | Ischemic | | 2018 | Encounter | MED CTR ECHO [address] | cardiomyopathy | | | | [place] | [place], | | | | | [place] [address] | [place] [address] | | | | | [phone] | [phone] | | | | | | | [...] nightly. | tablet | | 18 | | | tablet | | | | | | + + +--------+---------+ + + | Cholecalciferol | Take by mouth Once | | | | | | (VITAMIN D-3) 16767 | a week. | | | | [...] tablet by | 30 | 4 | 01/14/20 | | | 20 mg tablet | [...] | 04/22/ | Office | Cardiac | Lauren Figueroa, | | | 2017 | Visit | Rehabilitation | MD Javid Crespo | | | | | | [place], | | | | | | [place] [address] | | | | | | [phone] | | | | | | | | | | | | Maria Esther Fields RN | | +--------+---------+ + + + | 06/02/ | Office | Cardiology | Jenny, | | | 2017 | Visit | | [address] | | | | | | [place], | | | | | | [place] [address] | | | | | | [phone] | | | | | | | [...] (TTE) Demographics Patient Name | | | [facility] Number J Patient | | | Number [id number] Date of | | | Study 04/02/2018 Visit Number [id number] | | | Referring | | | Physician CAROLINA AGUILAR Number Date of | | | 1955 | | | Block Sawyer FRANNIE ISAACS [facility] | | | Age 62 year(s) | | | Interpreting CAROLINA | | | LAUREN | | | Milk Collector LAUREN | | | [place] | | | | | | Gender Male Nurse | | | | | | Stress Supervisor Matrix Procedure Type of Study TTE procedure: ECHO [...] Diastolic: 0.9 cm EF | | | Ceszctnys49% EF Calculated: 32% Miscellaneous Aorta Aortic Root: [...] Diastolic: 0.9 cm | | | EF Dylcwekey70% | | | EF Calculated: 32% | [...] J | | | | Patient Number [id number] Date of Study 04/02/2018 | | | | Visit Number [id number] | | | | Referring Physician CAROLINA AGUILAR | | Number | | | | Date of 1955 Block Sawyer FRANNIE ISAACS [address]CS | | | | Age 62 year(s) Interpreting CAROLINA AGUILAR | | Milk Collector LAUREN FIGUEROA, | | MD | | | | Gender Male Nurse | | | | Stress Supervisor Matrix | | | | Procedure | | [...] PW Diastolic: 0.9 cm | | EF Majxabivp03% | | EF Calculated: 32% | | [...]
--- OUTSIDE RECORDS SUMMARY | ~2018-04-17 | XMS | Encounter Summary ---
Demographics + + + | Address | [address] | | | [place] [address] | + + + | Home Phone [...] Author | [facility] | | | and [place] | + + + | Organization | [facility] | | | and [place] | + + + | Address | Unknown | + + + | Phone | Unavailable | + + + Support + + + + + | Name | Relationship | Address | Phone | + + + + + | SumanVenice | ECON | [address] [facility] | | | | | #[place] | | | | | [address] | | + + + + + Care Team Providers + +------+ + | Care Senior Capital Markets Specialist Name | Role | Phone | + +------+ + | Chato Matson MD | PCP | | + +------+ + Reason for Visit + + + | Reason | Comments | + + + | Numbness | bilateral lower extremities, left greater than right | + + + Service/Procedure (Routine) +--------+--------+ + + + + | Status | Reason | Specialty | Diagnoses / | Referred By | Referred To | | | | | Procedures | Contact | Contact | +--------+--------+ + + + + | Closed | | Physical | Diagnoses | Dano, | Danielito, | | | | Medicine and | | Chato | Prosper Isabel MD | | | | Rehabilitatio | Radiculopath | MD Ronald | [address] | | | | n | y Numbness | [address] | [facility] | | | | | and tingling | [place] | [facility] [place] | | | | | of both | Drive [place] | [address] Phone: | | | | | legs | [place], [place] | [phone] | | | | | Weakness | [address] | Fax: | | | | | Procedures | Phone: | [phone] | | | | | [place] MOTOR | [phone] | | | | | | &/SENS 3-4 | Fax: | | | | | | NRV CNDJ | [phone] | | | | | | PRECONF | | | | | | | ELTRODE LIMB | | | | | | | [place] MOTOR | | | | | | | &/SENS 5-6 | | | | | | | NRV CNDJ | | | | | | | PRECONF | | | | | | | ELTRODE LIMB | | | | | | | [place] EMG, | | | | | | | NEEDLE, TWO | | | | | | | LIMBS [place] | | | | | | | NEEDLE EMG | | | | | | | EA EXTREMITY | | | | | | | W/PARASPINL | | | | | | | AREA | | | | | | | LIMITED DOS | | | | | | | 02/24/18 | | | +--------+--------+ + + + + Encounter Details +--------+ + + + + | Date | Type | Department | Care Team | Description | +--------+ + + + + | 02/24/ | Procedure | [facility] | Prosper Esteves | Left leg weakness; | | 2017 | visit | PHYSIATRY [address] | TMD [address] | Paresthesias/numbnes | | | | [place], | [address] [place] | s | | | | [place] [address] | [address] | | | | | [phone] | | | +--------+ + + + [...] + + + | Blood Pressure | 116/74 | 02/24/2018907 PDT | + + + + | Pulse | 74 | 02/24/201808 PDT | + + + + | Temperature | - | - | + + + + | Respiratory Rate | - | - | + + + + | Oxygen Saturation | - | - | + + + + | Inhaled Oxygen | - | - | | Concentration | | | + + + + | Weight | 96.2 kg (212 lb) | 02/24/2018907 PDT | + + + + | Height | 175.3 cm (5' 9") | 02/24/2018907 PDT | + + + + | Body Mass Index | 31.31 | 02/24/2018 0908 PDT | + + + + in this encounter Progress Notes Prosper Esteves MD - 02/24/2018 0900 PDTFormatting of this note may be different from t he original. [facility] Musculoskeletal, Sports and Spine, Physiatry [facility] [place] [facility] [address] [address] Test Date: 02/24/2018 Patient Name: Bob Will : 1955 Physician: Prosper Esteves MD MR #: [id number] Sex: Male Referring Physician: Chato Matson MD HISTORY: The patient is a very pleasant 62 year-old male who is being seen today at the quest of Dr. Chato Matson for complaints of bilateral leg pain, numbness and weakness. The left leg is reportedly worse than the right. The patient does report that both legs feel v selena heavy and he reports that the further he walks the more the pain increases from the hips down, again, left more than right. The patient reports that the symptoms have been present for about a year. He reports that the symptoms started after a heart attack. The patient reports to me today that he was in the ICU and ECMO was used to sustain his life. He states that the vascular access was through the femoral vessels in the left leg. He reports that as he recovered from the heart attack that is when he noticed the weakness in the legs, martin cially the left leg. He states the leg does buckle on him and he has noticed atrophy of the left thigh musculature. He does report that the area of greatest numbness is below the kne e in a saphenous nerve distribution, somewhat up into the inner thigh as well. The patient is "prediabetic" per the chart. He denies alcohol abuse, hypothyroidism, cance r or renal insufficiency. PHYSICAL EXAM: He has loss of reflexes throughout the lower extremities. There is also a 3-4 cm differenc e in the girth of the thighs measured approximately 3 inches above the knee with the left be ing smaller. There is visible atrophy of the vastus medialis. Nerve Conduction Studies Anti Sensory Summary Table Site NR Peak (ms) Norm Peak (ms) P-T Amp (V) Norm P-T Amp Site1 Site2 Delta-P (ms) Dist (cm) Rohan (m/s) Norm Rohan (m/s) Left Sup Peron Anti Sensory (Ant Lat Mall) 14 cm 3.6 <4.4 13.3 >5.0 14 cm Ant Lat Mall 3.6 14.0 39 >32 Right Sup Peron Anti Sensory (Ant Lat Mall) 14 cm 3.4 <4.4 15.3 >5.0 14 cm Ant Lat Mall 3.4 14.0 41 >32 Left Sural Anti Sensory (Lat Mall) Calf 3.6 <4.0 8.2 >5.0 Calf Lat Mall 3.6 14.0 39 >35 Right Sural Anti Sensory (Lat Mall) Calf 3.7 <4.0 8.9 >5.0 Calf Lat Mall 3.7 14.0 38 >35 Motor Summary Table Site NR Onset (ms) Norm Onset (ms) O-P Amp (mV) Norm O-P Amp Site1 Site2 Delta-0 (ms) Dist (cm) Rohan (m/s) Norm Rohan (m/s) Left Peroneal Motor (Ext Dig Brev) Ankle 4.4 <6.1 3.9 >2.5 B Fib Ankle 7.7 31.5 41 >38 B Fib 12.1 3.5 Poplt B Fib 2.0 9.0 45 >40 Poplt 14.1 3.3 Right Peroneal Motor (Ext Dig Brev) Ankle *7.9 <6.1 *0.7 >2.5 B Fib Ankle 10.9 31.5 *29 >38 B Fib 18.8 0.5 Poplt B Fib 2.8 9.0 *32 >40 Poplt 21.6 0.4 Right Peroneal TA Motor (Tib Ant) Fib Head 2.9 <4.2 2.2 Poplit Fib Head 1.6 9.0 56 >40.5 Poplit 4.5 <5.7 2.1 Left Tibial Motor (Abd Scott Brev) Ankle 5.2 <6.1 6.0 >3.0 Knee Ankle 8.3 34.0 41 >35 Knee 13.5 3.7 Right Tibial Motor (Abd Scott Brev) Ankle 5.6 <6.1 5.6 >3.0 Knee Ankle 9.6 36.0 38 >35 Knee 15.2 4.5 EMG Side Muscle Nerve Root Ins Act Fibs Psw Amp Dur Poly Recrt Int Pat Comment Right VastusMed Femoral L2-4 Nml Nml Nml Nml Nml 0 Nml Nml Right AntTibialis Dp Br Peron L4-5 Nml Nml Nml Nml Nml 0 Nml Nml Right ExtHallLong Dp Br Peron L5, S1 Nml Nml Nml Nml Nml 0 Nml Nml Right Gastroc Tibial S1-2 Nml Nml Nml Nml Nml 0 Nml Nml Right Flex Dig Long Tibial L5-S2 Nml Nml Nml Nml Nml 0 Nml Nml Left VastusMed Femoral L2-4 Nml *2+ *2+ Nml *>12ms *2+ *Reduced *50% CRDs Left AntTibialis Dp Br Peron L4-5 Nml Nml Nml Nml Nml 0 Nml Nml Left ExtHallLong Dp Br Peron L5, S1 Nml Nml Nml Nml Nml 0 Nml Nml Left Gastroc Tibial S1-2 Nml Nml Nml Nml Nml 0 Nml Nml Left Flex Dig Long Tibial L5-S2 Nml Nml Nml Nml Nml 0 Nml Nml Nerve Conduction Studies Motor Left/Right Comparison Site L Lat (ms) R Lat (ms) L-R Lat (ms) L Amp (mV) R Amp (mV) L-R Amp (%) Site1 Site2 L Ve l (m/s) R Rohan (m/s) L-R Rohan (m/s) Peroneal Motor (Ext Dig Brev) Ankle 4.4 *7.9 *3.5 3.9 *0.7 *82.1 B Fib Ankle 41 *29 *12 B Fib 12.1 18.8 6.7 3.5 0.5 85.7 Poplt B Fib 45 *32 13 Poplt 14.1 21.6 7.5 3.3 0.4 87.9 Peroneal TA Motor (Tib Ant) Fib Head 2.9 2.2 Poplit Fib Head 56 Poplit 4.5 2.1 Tibial Motor (Abd Scott Brev) Ankle 5.2 5.6 0.4 6.0 5.6 6.7 Knee Ankle 41 38 3 Knee 13.5 15.2 1.7 3.7 4.5 17.8 Anti Sensory Left/Right Comparison Site L Lat (ms) R Lat (ms) L-R Lat (ms) L Amp (V) R Amp (V) L-R Amp (%) Site1 Site2 L Rohan (m/s) R Rohan (m/s) L-R Rohan (m/s) Sup Peron Anti Sensory (Ant Lat Mall) 14 cm 3.6 3.4 0.2 13.3 15.3 13.1 14 cm Ant Lat Mall 39 41 2 Sural Anti Sensory (Lat Mall) Calf 3.6 3.7 0.1 8.2 8.9 7.9 Calf Lat Mall 39 38 1 NCV FINDINGS: Evaluation of the Right peroneal motor nerve showed prolonged distal onset latency, reduced amplitude, decreased conduction velocity (B Fib-Ankle), and decreased conduction velocity ( Poplt-B Fib). All remaining nerves (as indicated in the preceding tables) were within luis l limits. EMG FINDINGS: Needle evaluation of the Left vastus medialis muscle showed moderately increased spontaneou s activity, increased motor unit duration, moderately increased polyphasic potentials, dimin ished recruitment, and decreased interference pattern. All remaining muscles (as indicated in the preceding table) showed no evidence of electrical instability. 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 This conclusion is ba sed primarily on EMG needle exam and physical examination. Based on the muscles and nerves tested today I cannot completely rule out a lumbar radiculopathy affecting the left L3 and L 4 nerve roots. There is also evidence of a possible peroneal neuropathy on the right. There is prolonged distal latency, reduced amplitude and decreased conduction velocity throughout the peroneal nerve on motor conduction testing. Exact etiology and clinical significance of this finding is uncertain. There was no electrodiagnostic evidence of peripheral neuropathy or myopathy. I do recommend that the patient have a CT myelogram of the lumbar spine to evaluate for any evidence of nerve root impingement. If there is no evidence of encroachment on neural stru ctures this would help solidify the diagnosis of femoral neuropathy. Thank you for allowing me to perform neurodiagnostic testing on your patient. If you have a ny further questions or comments, please do not hesitate to call. Prosper Esteves MD Fellow, [place] [employer]. in this encounter Plan of Treatment +--------+---------+ + + + | Date | Type | Specialty | Care Team | Description | +--------+---------+ + + + | 04/22/ | Office | Cardiac | Randy Figueroa, | | | 2017 | Visit | Rehabilitation | MD Jvaid Crespo | | | | | | [place], | | | | | | [place] [address] | | | | | | [phone] | | | | | | | | | | | | Maria Esther Fields RN | | +--------+---------+ + + + | 06/02/ | Office | Cardiology | Jneny, | | | 2017 | Visit | | ADARSH Santo [address] | | | | | | [facility] [place], | | | | | | [place] [address] | | | | | | [phone] | | | | | | | | +--------+---------+ + + + as of this encounter Visit Diagnoses + + | Diagnosis | + + | Left leg weakness | + + | Other musculoskeletal symptoms referable to limbs | + + | Paresthesias/numbness | + + | Disturbance of skin sensation | + +
--- OUTSIDE RECORDS SUMMARY | ~2018-04-17 | XMS | Encounter Summary ---
Demographics + + + | Address | [address] | | | [place] [address] | + + + | Home Phone | | + + + | Preferred Language | Unknown | + + + | Marital Status | | + + + | Hinduism Affiliation | Unknown | + + + | Race | Unknown | + + + | Ethnic Group | Unknown | + + + Author + + + | Author | [facility] | | | and [place] | + + + | Organization | [facility] | | | and [place] | + + + | Address | Unknown | + + + | Phone | Unavailable | + + + Support + + + + + | Name | Relationship | Address | Phone | + + + + + | SumanVenice | ECON | [address] | | | | | #[address] | | | | | [address] | | + + + + + Care Team Providers + +------+ + | Care Content Specialist Name | Role | Phone | [...] Description | +--------+--------+ + + + | 02/25/ | Refill | [facility] | Jenny, | Medication Refill | | 2017 | | CARDIOLOGY [address] | ADARSH Santo [address] | | | | | [place], | [place], | | | | | [place] [address] | [place] [address] | | | | | [phone] | [phone] | | | | | | | [...] [place], | | | | | | [place] [address] | | | | | | [phone] | | | | | | | | | | | | Maria Esther Fields RN | | +--------+---------+ + + + | 06/02/ | Office | Cardiology | Jenny, | | | 2017 | Visit | | ADARSH Santo [address] | | | | | | [place] | | | | | | [place] [address] | | | | | | [phone] | | | | | | | | +--------+---------+ + + + as of this encounter Visit Diagnoses Not on filein this encounter"
--- OUTSIDE RECORDS SUMMARY | ~2018-04-17 | XMS | Clinical Summary ---
Demographics + + + | Address | [address] [place] [address] [address] | | | [place] [address] | + + + | Home Phone | | + + + | Preferred Language | Unknown | + + + | Marital Status | | + + + | Adventism Affiliation | NRP | + + + [...] | | | | | [place] [address] | | + + + + + Care Team Providers + +------+ + | Care Forest Science Professor Name | Role | Phone | + +------+ + | Chato Matson MD | PP | | + +------+ + Source Comments EULOGIO is fully live on both [facility] and [facility] In[facility] Allergies No Known Allergies Current Medications + [...] resynchronization therapy | 10/17/2017 | | 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 | | -secretions improving, cough strong [...] + + + | Facet arthropathy, cervical (HCC) | 02/19/2012 | + + + | [...] stayExtubated 03/22, started on | | NC B0Qfjzk infusion begun 03/22 for daily goal -1 to -2LAfterload | | reduction for SBC < 130 to prevent flash pulmonary edema | + + + + + + | STEMI (ST elevation myocardial infarction) ([facility]) | 03/15/20 | | | | [...] | lab procedure at [facility]. Was shocked 17 times | | Targeted [...] | | | HANDY | | | [id number] | | Tejal Pettit MD | | | | | | X / | | | | | | | | /[id number] | | | | | | | | [address] | + +------+--------+ +--------+--------+--------+ Results Not on [...] | BLUE | [phone] | PPO | [phone] | [address] [address] [place] | | | CROSS | | | [address] | [place] [address] | | | [place]ER[place] | | | | | | | L | | | | | + +--------+ +--------+ + + | MEDICAID [place] | OHP | [phone] | Medica | [phone] [address] [address] | | | PLUS | | id | [phone] | [place] [address] | | | OPEN | | | [...] | Self [birth year] | Home: | [address] | | | al/Fam | | 1956 | [phone] | [address] [place] | | | taiwo | | | [address] | [address] | + +--------+ +--------+ + +
--- OUTSIDE RECORDS SUMMARY | ~2018-04-17 | XMS | Encounter Summary ---
Demographics + + + | Address | [address] | | | [place] [address] | + + + | Home Phone [...] + + | SumanVenice | ECON | [address] | | | | | #[place] | | | | | [address] | | + + + + + Care Team Providers + +------+ + | Care Life Insurance Agent Name | Role | Phone | [...] [address] | | | | | [place], | [place], | | | | | [place] [address] | [place] [address] | | | | | [phone] | [phone] | | | | | | | [...] | | | | | | [place] [address] | | | | | | [phone] | | | | | | | | | | | | Maria Esther Fields RN | | +--------+---------+ + + + | 06/02/ | Office | Cardiology | Jenny, | | | 2017 | Visit | | ADARSH Santo [address] | | | | | | [place] | | | | | | [place] [address] | | | | | | [phone] | | | | | | | | +--------+---------+ + + + as of this encounter Visit Diagnoses Not on filein this encounter"
--- OUTSIDE RECORDS SUMMARY | ~2018-04-17 | XMS | Encounter Summary ---
Demographics + + + | Address | [address] | | | [place] [address] | + + + | Home Phone | | + + + | Preferred Language | Unknown | + + + | Marital Status | | + + + | Voodoo Affiliation | Unknown | + + + [...] + | [place] | ECON | [address] | | | | | #[place] | | | | | [address] | | + + + + + Care Team Providers + +------+ + | Care Software Quality Assurance Engineer Name | Role | Phone | [...] + + + + + + | Pending | Specialty | Sleep | Diagnoses | Nedra, | [facility] | | Review | Services | Medicine | [place] | MD Sofie | Center [address] | | | Required | | (obstructive | [address] | [place] | | | | | sleep | [address] | [place], | | | | | apnea) | [place] | [place] [address] | | | | | Procedures | [address] | Phone: | | | | | [place] POLYSOM | Phone: | [phone] | | | | | 6/>YRS SLEEP | [phone] | Fax: | | | | | W/CPAP 4/> | Fax: | [phone] | | | | | ADDL KATERINA | [phone] | | | | | | ATTND [place] | | | | | | | POLYSOM | | | | | | | 6/>YRS SLEEP | | | | | | | 4/> ADDL | | | | | | | KATERINA ATTND | | | | | | | 04/15 | | | | | | | PENDING MODA | | | | | | | PAP | | | | | | | (05/04@8pm) | | | | | | | CX LIST JSK | | | + + + + + + + Reason for Visit + + + | Reason | Comments | + + + | CPAP Follow Up | | + + + Encounter Details +--------+---------+ + + + | Date | Type | Department | Care Team | Description | +--------+---------+ + + + | 04/14/ | Office | [facility] | Sofie Sneed MD | [place] (obstructive | | 2018 | Visit | SLEEP DISORDER [address] | sleep apnea) | | | | [address] [place] | [place] | (Primary Dx) | | | | [place] [address] | [address] | | | | | [phone] | | | +--------+---------+ + + + [...] 04/14/2018809 PDT | + + + + in this encounter Progress Notes Sofie Sneed MD - 04/14/2018814 PDTFormatting of this note may be different [...] coronary 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 post recent anterior wall [place], post PTCA and stents on 03/15/17, cardiac [...] breaths does not meet criteria for an tactical debriefer officer ea or hypopnea. REVELANT MEDICATIONS: Tramadol, hydrocodonehypopnea acetaminophen, gabapentin. SUBJECTIVE: The patient rated sleep quality during sleep study as better. Consumer Science Teacher note: patient tried medium dreamwear nasal mask [...] apnea. in this encounter Plan of Treatment +--------+---------+ + + + | Date | Type | Specialty | Care Team | Description | +--------+---------+ + + + | 04/22/ | Office | Cardiac | Randy Figueroa, | | | 2017 | Visit | Rehabilitation | MD Hua [facility] | | | | | | [place], | | | | | | [place] [address] | | | | | | [phone] | | | | | | | | | | | | Maria Esther Fields RN | | +--------+---------+ + + + | 06/02/ | Office | Cardiology | Jenny, | | | 2017 | Visit | | Hansa, SOCIAL WORK FACULTY MEMBER [address] | | | | | | [place], | | | | | | [place] [address] | | | | | | [phone] | | | | | | | | +--------+---------+ + + + + +--------+ + + | Name | Priori | Associated Diagnoses | Order Schedule | | | ty | | | + +--------+ + + | * [facility] | Routin [...]
--- OUTSIDE RECORDS SUMMARY | ~2018-04-17 | XMS | Encounter Summary ---
Demographics + + + | Address | [address] | | | [place] [address] | + + + | Home Phone [...] + | [place] | ECON | [address] | | | | | #[place] | | | | | [address] | | + + + + + Care Team Providers + +------+ + | Care Map Plotter Name | Role | Phone | + [...] | (obstructive | [address] | [place] | | | | | sleep | [address] | [place], | | | | | apnea) | [place] | [place] [address] | | | | | Procedures | [address] | Phone: | | | | | [place] POLYSOM | Phone: | [phone] | | | | | 6/>YRS SLEEP | [phone] | Fax: | | | | | W/CPAP 4/> | Fax: | [phone] | | | | | ADDL KATERINA | [phone] | | | | | | ATTND [place] | | | | | | [...] + + | 04/14/ | Office | [facility] | Sofie Sneed MD | [place] (obstructive | | 2018 | Visit | SLEEP DISORDER [address] | [address] | sleep apnea) | | | | [address] [place] | [place] | (Primary Dx) | | | | [place] [address] | [address] | | | | | [phone] | | | +--------+---------+ + + + [...] coronary 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 post recent anterior wall [place], post PTCA and stents on 03/15/17, cardiac [...] breaths does not meet criteria for an fitter mechanic ea or hypopnea. REVELANT MEDICATIONS: Tramadol, hydrocodonehypopnea acetaminophen, gabapentin. SUBJECTIVE: The patient rated sleep quality during sleep study as better. Lodging Facilities Manager note: patient tried medium dreamwear nasal mask [...] | Visit | Rehabilitation | MD Hua [facility] [place] | | | | | | [place], | | | | | | [place] [address] | | | | | | [phone] | | | | | | | | | | | | Maria Esther Fields RN | | +--------+---------+ + + + | 06/02/ | Office | Cardiology | Jenny, | | | 2017 | Visit | | Hansa, NURSING TEACHER [address] | | | | | | [place], | | | | | | [place] [address] | | | | | | [phone] | | | | | | | | +--------+---------+ + + + + +--------+ + + | Name | Priori | Associated Diagnoses | Order Schedule | | | ty | | | + +--------+ + + | * [facility] - AMB Referral | [...]
--- OUTSIDE RECORDS SUMMARY | ~2018-04-17 | XMS | Encounter Summary ---
Demographics + + + | Address | [address] | | | [place] [address] | + + + | Home Phone [...] + | [place] | ECON | [address] | | | | | #[address] | | | | | [address] | | + + + + + Care Team Providers + +------+ + | Care Polish Maker Name | Role | Phone | [...] Ischemic | MD Lauren | [address] | | | | | cardiomyopat | [address] | [place], | | | | | hy | [address] | [place] | | | | | Procedures | [place], | [address] | | | | | ECHO | [place] [address] | Phone: | | | | | Complete [place] | Phone: | [phone] | | | | | ECHO HEART | [phone] | Fax: | | | | | [place] | Fax: | [phone] | | | | | [address] | [phone] | | | | | | [place] | | | | | | [...] Ischemic | MD Lauren | [address] | | | | | cardiomyopat | [address] | [place], | | | | | hy | [address] | [place] | | | | | Procedures | [place], | [address] | | | | | ECHO | [place] [address] | Phone: | | | | | Complete [place] | Phone: | [phone] | | | | | ECHO HEART | [phone] | Fax: | | | | | [place] | Fax: | [phone] | | | | | [address] | [phone] | | | | | | [place] | | | | | | [...] Ischemic | MD Lauren | [address] | | | | | cardiomyopat | [address] | [place], | | | | | hy | [address] | [place] | | | | | Procedures | [place], | [address] | | | | | ECHO | [place] [address] | Phone: | | | | | Complete [place] | Phone: | [phone] | | | | | ECHO HEART | [phone] | Fax: | | | | | [place] | Fax: | [phone] | | | | | [address] | [phone] | | | | | | [place] | | | | | | [...] + + | 04/02/ | Hospital [facility] | Lauren Figueroa, | Ischemic | | 2018 | Encounter | [facility] ECHO [address] | cardiomyopathy | | | | [address] [place] | [address], | | | | | [place] [address] | [place] [address] | | | | | [phone] | [phone] | | | | | | | [...] | | | | | (VITAMIN D-3) [id number] | a week. | | | | [...] | | | | | | [place] [address] | | | | | | [phone] | | | | | | | | | | | | Maria Esther Fields RN | | +--------+---------+ + + + | 06/02/ | Office | Cardiology | Jenny, | | | 2017 | Visit | | ADARSH Santo | | | | | | [place], | | | | | | [place] [address] | | | | | | [phone] | | | | | | | [...] (TTE) Demographics Patient Name | | | [facility] Number J Patient | | | Number [id number] Date of | | | Study 04/02/2018 Visit Number [id number] | | | Referring | | | Physician CAROLINA AGUILAR Number Date of | | | 1955 | | | Stock Broker FRANNIE ISAACS [facility] | | | Age 62 year(s) | | | Interpreting CAROLINA | | | LAUREN | | | Central Services Tech LAUREN | | | [place] | | | | | | Gender Male Nurse | | | | | | Stress Parking Attendant Procedure Type of Study TTE procedure: ECHO [...] Diastolic: 0.9 cm EF | | | Vfwbhzupe43% EF Calculated: 32% Miscellaneous Aorta Aortic Root: [...] Diastolic: 0.9 cm | | | EF Sidroqudq05% | | | EF Calculated: 32% | [...] J | | | | Patient Number [id number] Date of Study 04/02/2018 | | | | Visit Number [id number] | | | | Referring Physician CAROLINA AGUILAR | | Number | | | | Date of 1955 Stock Broker FRANNIE ISAACS [facility]CS | | | | Age 62 year(s) Interpreting CAROLINA AGUILAR | | Central Services Tech LAUREN FIGUEROA, | | MD | | | | Gender Male Nurse | | | | Stress Parking Attendant | | | | Procedure | | [...] PW Diastolic: 0.9 cm | | EF Xndcwdqqf66% | | EF Calculated: 32% | | [...]
--- OUTSIDE RECORDS SUMMARY | ~2018-04-17 | XMS | Encounter Summary ---
Demographics + + + | Address | [address] | | | [place] [address] | + + + | Home Phone [...] + | [place] | ECON | [address] | | | | | #[place] | | | | | [address] | | + + + + + Care Team Providers + +------+ + | Care Senior It Project Manager Name | Role | Phone [...] | apnea, | [address] | [place] | | | | | unspecified | [address] [place] | [place], | | | | | type | [place], [place] | [place] [address] | | | | | Procedures | [address] | Phone: | | | | | [place] POLYSOM | Phone: | [phone] | | | | | 6/>YRS SLEEP | [phone] | Fax: | | | | | W/CPAP 4/> | Fax: | [phone] | | | | | ADDL KATERIAN | [phone] | | | | | | ATTND [place] | | | | | | | [...] | +---------+ + Evaluate & Treat (Routine) + + [...] | | Required | | (obstructive | ADARSH Santo | Disorder [address] | | | | | sleep | [address] | | | | | apnea) | [place] | [place], | | | | | | [place] | [place] [address] | | | | | | [place] | Phone: | | | | | | [address] | [phone] | | | | | | Phone: | Fax: | | | | | | [phone] | [phone] | | | | | | Fax: | | | | | | | [phone] | | + + + + + + + Encounter Details +--------+---------+ + + + | Date | Type | Department | Care Team | Description | +--------+---------+ + + + | 02/08/ | Office | [facility] [place] | Sofie Sneed MD | Sleep apnea, | | 2018 | Visit | SLEEP DISORDER [address] | [address] | unspecified type | | | | [address] [place] | [place] | (Primary Dx) | | | | [place] [address] | [address] | | | | | [phone] | | | +--------+---------+ + + + [...] + | Blood Pressure | 130/70 | 02/08/2018756 PDT | + + + + | Pulse | 65 | 02/08/2018756 PDT | + + + + | Temperature | - | - | + + + + | Respiratory Rate | 16 | 02/08/2018756 PDT | + + + + | Oxygen Saturation | 95% | 02/08/2018756 PDT | + + + + | Inhaled Oxygen | - | - | | Concentration | | | + + + + | Weight | 96.3 kg (212 lb 4.9 | 02/08/2018756 PDT | | | oz) | | + + + + | Height | 175.3 cm (5' 9") | 02/08/2018756 PDT | + + + + | Body Mass Index | 31.35 | 02/08/2018756 PDT | + + + + in this encounter Instructions Patient Instructions - Sofie Sneed MD - 02/08/2018 0857 PDTFormatting of this note may b e different from the original. Please: 1- Schedule [...] when you re asleep. Date Last Reviewed: 04/07/201719990281-7842 [employer] [address] [place] [address]. All righ ts reserved. This information is [...] types of CPAP. Your doctor or CPAP diazo technician will help you decide whic h [...] sleep stage, and snoring. Date Last Reviewed: 04/07/201719994078-7685 [employer] [address] [place] [address]. All righ ts reserved. This information is not intended as a substitute for professional medical care. Always follow your healthcare professional's instructions. in this encounter Progress Notes Sofie Sneed MD - 02/08/2018 0800 PDTFormatting of this note may be different from the or iginal. ID/CC: We are asked to Nuzhat Will referred for consultation from Hansa Alvarado fo r evaluation of sleep apnea. Bob Will is a 62 y.o. year male old with history of coronary 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 pos t recent anterior wall [place], post PTCA and stents on 03/15/17, cardiac [...] congestion. He says when he was at [facility] for his heart, and he was told [...] tries not to take it regularly ? [place] Sleepiness Scale: 19 out of 24 ( [...] Medical History: Diagnosis Date Acute anterior wall [place] (HCC) 04/03/2017 Angiography and stent 03/15/2017 successful [...] Cor Angio; Surgeon: Monse Ross MD; Location: [facility] CV LAB CARDIAC CATHERIZATION N/A 10/03/2017 Procedure: CV Cor Angio; Surgeon: Delmer Dai MD; Location: [facility] CV LAB ELBOW SURGERY Left GALLBLADDER SURGERY NASAL SEPTUM SURGERY UPPER GASTROINTESTINAL ENDOSCOPY N/A 10/05/2017 Procedure: EGD; Surgeon: Terry Weir MD; Location: [facility] MEDICAL PROCEDURE UNIT ALLERGIES No Known Allergies CURRENT MEDICATIONS Prior to Admission medications Medication Sig Start Date End Date Taking? Authorizing Provider aspirin 81 MG tablet Take 81 mg by mouth Daily. Yes Historical Provider, atorvaSTATin (LIPITOR) 80 MG tablet Take 1 tablet by mouth nightly. 11/10/17 Yes ADARSH Kendrick Cholecalciferol (VITAMIN D-3) 37920 units CAPS Take by mouth Once a [...] tablet 2 times daily. 01/07/18 Yes Historical Provider, metFORMIN (GLUCOPHAGE) 500 mg tablet Take 500 mg by mouth 2 times daily (with breakfast & d inner). Yes Historical Provider, metoprolol succinate (TOPROL-XL) 25 mg 24 hr tablet Take 1 tablet by mouth Daily. 10/19/17 Yes ADARSH Stevens nitroglycerin (NITROSTAT) 0.[address] 1 tablet under the tongue every 5 minutes as needed for Chest pain. 10/09/17 Yes Destinee Trejo MD pantoprazole (PROTONIX) 40 mg tablet Take 40 mg by mouth 2 times daily. Yes Historical Anahi martínez MD raNITIdine (ZANTAC) 300 MG capsule Take 300 mg by mouth every evening. Yes Historical Pro kyaw MD traMADol (ULTRAM) 50 mg tablet Take 50 mg by mouth every 6 hours as needed. Yes Historfrancisco j Adame MD SOCIAL HISTORY - Lives with his . 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 discussed di agnosis via polysomnography / fyc-ue-ihmyxt sleep testing. Today, I ordered a split-night p olysomnography. I also discussed treatment options for sleep apnea, including CPAP (gold s tandard), weight loss, mandibular advancement device, and surgery, [...] intake, and food is information and sonya reyesFletcher Discussed that changing his diet since his heart attack, probably is one of the best thi ngs that he could done for his health overall. Hopefully he will be able to have more physi annie activity once his sleep improved. Thank you for the opportunity to participate in this patient's care. Portions of this chart may have been created with [employer] voice recognition software. Occasi onal wrong-word or sound-alike substitutions may have occurred due to the inherent canseco itations of voice recognition software. Please read the chart carefully and recognize, using context, where these substitutions have occurred. Dl Matos, Public Health Social Worker - 02/08/2018 0800 PDTFormatting of this note may be diff erent from the original. 02/08/18 0700 Poole Depression Inventory-II Depression Score 7 - Minimal depression Insomnia Severity Index Insomnia Severity Index 14 Hammond Sleepiness Scale Sitting and reading 3 Watching [...] 31.8 MH 43.02 PCS 29.41 MCS 46.49 in this encounter Plan of Treatment +--------+---------+ + + + | Date | Type | Specialty | Care Team | Description | +--------+---------+ + + + | 04/22/ | Office | Cardiac | Randy Figueroa | | | 2017 | Visit | Rehabilitation | [place] [address] | | | | | | [place], | | | | | | [place] [address] | | | | | | [phone] | | | | | | | | | | | | Maria Esther Fields RN | | +--------+---------+ + + + | 06/02/ | Office | Cardiology | Jenny, | | | 2017 | Visit | | ADARSH Santo [address] | | | | | | [place], | | | | | | [place] [address] | | | | | | [phone] | | | | | | | | +--------+---------+ + + + + +--------+ + + | Name | Priori | Associated Diagnoses | Order Schedule | | | ty | | | + +--------+ + + | * [facility] - AMB Referral | Routin | Sleep apnea, | Ordered: 02/08/2018 | | | e | unspecified type | | + +--------+ + + as of this encounter Visit Diagnoses + + | Diagnosis | + + | Sleep apnea, unspecified type - Primary | + +
--- OUTSIDE RECORDS SUMMARY | ~2018-04-17 | XMS | Encounter Summary ---
Demographics + + + | Address | [address] | | | [place] [address] | + + + | Home Phone [...] + | [place] | ECON | [address] | | | | | #[address] | | | | | [address] | | + + + + + Care Team Providers + +------+ + | Care Physical Education Department Chair Name | Role | Phone | + [...] | | | Services | Rehabilitatio | Chronic | MD Randy | | | | Required | n | systolic | [address] | Rehabilitatio | | | | | (congestive) | [address] | [address] | | | | | heart | [place], | [address] [place] | | | | | failure | [place] [address] | [place], [place] | | | | | (HCC) | Phone: | [address] | | | | | | [phone] | Phone: | | | | | | Fax: | [phone] | | | | | | [phone] | Fax: | | | | | | | [phone] | + + + + + + [...] | Atherosclero | [address] | [address] | | | | | tic heart | [address] | [address] | | | | | disease of | [place], | [place], | | | | | [place] | [place] [address] | [place] [address] | | | | | coronary | Phone: | Phone: | | | | | artery | [phone] | [phone] | | | | | without | Fax: | Fax: | | | | | angina | [phone] | [phone] | | | | | pectoris ST [...] + + | 04/09/ | Office | [facility] | Randy Figueroa, | Coronary artery | | 2017 | Visit | CARDIOLOGY [address] | [address] [facility] | disease involving | | | | [address] [place], | [place], | [place] coronary | | | | [place] [address] | [place] [address] | artery of [place] | | | | [phone] | [phone] | heart without angina | | | [...] | Blood Pressure | 110/60 | 04/09/2018 0806 PDT | + + + + | Pulse | 60 | 04/09/2018805 PDT | + + + + | Temperature | - | - | + + + + | Respiratory Rate | 16 | 04/09/2018805 PDT | + + + + | Oxygen Saturation | - | - | + + + + | Inhaled Oxygen | - | - | | Concentration | | | + + + + | Weight | 98 kg (216 lb) | 04/09/2018805 PDT | + + + + | Height | 177.8 cm (5' 10") | 04/09/2018805 PDT | + + + + | Body Mass Index | 30.99 | 04/09/2018 0806 PDT | + + + + in this encounter Instructions Patient Instructions - Suzanne Cheng RN - 04/09/2018 0830 PDT Stop Lisinopril for 3 days then [...] weeks Provider: ADARSH Stevens Date: Check-In Time: in this encounter Progress Notes Randy Figueroa MD - 04/09/2018 0830 PDTFormatting of this note may be different from alie ceron. PATIENT NAME: Bob Will : 1955: AGE: 62 y.o. PRIMARY CARE: Chato Matson MD OUTPATIENT FOLLOW UP VISIT Date of Service: 04/09/2018 HISTORY OF PRESENT ILLNESS: Bob Will is a 62 y.o. male with a history of coronary 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 post recent anterior wall [place], post PTCA and stents of the left main, LAD and LCx on 03/15/17, cardiac shoc k, left atrial appendage thrombus, recent status post stents to , FINANCIAL SYSTEMS DIRECTOR-D placement in [facility] on 10/17/2017. He is being seen [...] Problem List Diagnosis Acute anterior wall [place] Coronary 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 involving seneca coronary artery of seneca heart without angina pectoris Ischemic cardiomyopathy Pulmonary edema FINANCIAL SYSTEMS DIRECTOR-D (AICD) [employer] 10/16/17 [facility] Stecker Implantable defibrillator reprogramming/check H/O atrial flutter Tachycardia GERD (gastroesophageal reflux disease) PAD (peripheral 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) CURRENT MEDICATIONS Current Outpatient Prescriptions Medication Sig Dispense Refill aspirin 81 MG tablet Take 81 mg by mouth Daily. atorvaSTATin (LIPITOR) 80 MG tablet Take 1 tablet by mouth nightly. 30 tablet 5 Cholecalciferol (VITAMIN D-3) 35127 units CAPS Take by mouth Once a [...] RESULTS reviewed during visit today primarily from [facility]: LIPID Lab Results Component Value Date [...] shock requiring IABP, pressor (dopa mine, norepinephrine). [facility] and [facility] were on divert. Patient wasn't transferred to [facility]. B. Echocardiogram 03/17/2017 shows LV ejection fraction is severely de creased, visually estimated left ventricular ejection fraction is 20 - 25%, left ventricular systolic thickening is segmentally abnormal,mildly reduced RV systolic function. Normal R V size, no significant valvular abnormalities seen, compared to the most recent exam dated, 03/15/2017, there is no significant changes C. At [facility], patient had another STEMI code [...] to follow up closely with a local bridge crew member in [place] . He wias dischargeed with a LifeVest [...] a 90% chery notic lesion to 0% resdual stenosis. G. [...] we will tr ansfer the patient to [facility] for consideration of urgent coronary revascularization. [...] He is in a class I of [place] [employer] Association functional class. There is no [...] myocardium in these regions. C. S/P [employer] FINANCIAL SYSTEMS DIRECTOR-D 10-16-17 Dr Darby, [facility]. Ice interrogation today shows one episode [...] week ago. This was after h is [place] and at the same time patient was having ventricular tachycardia. He was initiated on amiodarone and then discontinued before discharge. The plan is to monitor through his device and see if this is a problem that needs to be addressed. Patient is not on anticoagulation he was left that way from [facility]. Patient has had several GI bleeds [...] reviewed and edited this note. Heather Cui Hemotherapist 04/09/2018 I, Randy Figueroa MD, personally performed the services described in this documentation, as scribed in my presence and it is both accurate and complete. Heather Cui, Med Ass t 04/09/2018 8:28 Electronically signed by: Randy Figueroa MD [facility] 04/09/2018 Portions of this chart may have been created with [employer] voice recognition software. Occasi onal wrong-word or sound-alike substitutions may have occurred due to the inherent canseco itations of voice recognition software. Please read the chart carefully and recognize, using context, where these substitutions have occurred in this encounter Plan of Treatment +--------+---------+ + + + | Date | Type | Specialty | Care Team | Description | +--------+---------+ + + + | 04/22/ | Office | Cardiac | Randy Figueroa, | | | 2017 | Visit | Rehabilitation | MD Javid Crespo | | | | | | [place], | | | | | | [place] [address] | | | | | | [phone] | | | | | | | | | | | | Maria Esther Fields RN | | +--------+---------+ + + + | 06/02/ | Office | Cardiology | Jenny, | | | 2017 | Visit | | ADARSH Santo | | | | | | [place], | | | | | | [place] [address] | | | | | | [phone] | | | | | | | | +--------+---------+ + + + + +--------+ + + | Name | Priori | Associated Diagnoses | Order Schedule | | | ty | | | + +--------+ + + | Basic Metabolic Panel | Routin | Ischemic | Expected: | | | e | cardiomyopathy | 04/09/2018, Expires: | | | | | 04/09/2019 | + +--------+ + + + +--------+ + + | Name | Priori | Associated Diagnoses | Order Schedule | | | ty | | | + +--------+ + + | Referral to Cardiac Rehab | Routin | Heart failure, | 1 Occurrences | | | e | unspecified HF | starting 04/09/2018 | | | | chronicity, | until 04/09/2019 | | | | unspecified heart | | | | | failure type (HCC) | | + +--------+ + + as of this encounter Visit Diagnoses + + | Diagnosis | + + | Coronary 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 involving seneca coronary artery of seneca heart without angina | | pectoris - Primary | + + | Ischemic cardiomyopathy | + + | Other specified forms of chronic ischemic heart disease | + + | Heart failure, unspecified HF chronicity, unspecified heart failure type (HCC) | + +
--- OUTSIDE RECORDS SUMMARY | ~2018-04-17 | XMS | Encounter Summary ---
Demographics + + + | Address | [address] | | | [place] [address] | + + + | Home Phone [...] + | [place] | ECON | [address] | | | | | #[place] | | | | | [address] | | + + + + + Care Team Providers + +------+ + | Care Keg Washer Name | Role | Phone | [...] | apnea, | [address] | [place] | | | | | unspecified | ST [place] | [place], | | | | | type | [place], [place] | [place] [address] | | | | | Procedures | [address] | Phone: | | | | | [place] POLYSOM | Phone: | [phone] | | | | | 6/>YRS SLEEP | [phone] | Fax: | | | | | W/CPAP 4/> | Fax: | [phone] | | | | | ADDL KATERINA | [phone] | | | | | | ATTND [place] | | | | | | [...] | sleep | [address] [place] | | | | | apnea) | [place] | [place], | | | | | | [place] | [place] [address] | | | | | | [place] | Phone: | | | | | | [address] | [phone] | | | | | | Phone: | Fax: | | | | | | [phone] | [phone] | | | | | | Fax: | | | | | | | [phone] | | + + + + + + + Encounter Details +--------+---------+ + + + | Date | Type | Department | Care Team | Description | +--------+---------+ + + + | 02/08/ | Office | [facility] [place] [facility] | Sofie Sneed MD | Sleep apnea, | | 2018 | Visit | SLEEP DISORDER [address] | [address] | unspecified type | | | | [address] [place] | [place] | (Primary Dx) | | | | [place] [address] | [address] | | | | | [phone] | | | +--------+---------+ + + + [...] when you re asleep. Date Last Reviewed: 04/07/201719991461-6142 [employer]. [address] [place] [address]. All righ ts reserved. This information is [...] types of CPAP. Your doctor or CPAP vehicle maintenance technician will help you decide whic h [...] sleep stage, and snoring. Date Last Reviewed: 04/07/201719997893-0617 [employer] [place] [address]. All righ ts reserved. This information is [...] 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 pos t recent anterior wall [place], post PTCA and stents on 03/15/17, cardiac [...] congestion. He says when he was at [facility] for his heart, and he was told [...] tries not to take it regularly ? [place] Sleepiness Scale: 19 out of 24 ( [...] Medical History: Diagnosis Date Acute anterior wall [place] (HCC) 04/03/2017 Angiography and stent 03/15/2017 successful [...] Angio; Surgeon: Monse Ross MD; Location: [facility] CV LAB CARDIAC CATHERIZATION N/A 10/03/2017 Procedure: CV Cor Angio; Surgeon: Delmer Dai MD; Location: [facility] CV LAB ELBOW SURGERY Left GALLBLADDER SURGERY NASAL SEPTUM SURGERY UPPER GASTROINTESTINAL ENDOSCOPY N/A 10/05/2017 Procedure: EGD; Surgeon: Terry Weir MD; Location: [facility] MEDICAL PROCEDURE UNIT ALLERGIES No Known Allergies CURRENT MEDICATIONS Prior to Admission medications Medication Sig Start Date End Date Taking? Authorizing Provider aspirin 81 MG tablet Take 81 mg by mouth Daily. Yes Historical Provider, atorvaSTATin (LIPITOR) 80 MG tablet Take 1 tablet by mouth nightly. 11/10/17 Yes ADARSH Kendrick Cholecalciferol (VITAMIN D-3) 43339 units CAPS Take by mouth Once a [...] 1 tablet by mouth Daily. 10/19/17 Yes DAARSH Stevens nitroglycerin (NITROSTAT) 0.4 mg SL tablet [...] - Lives with his . 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 discussed di agnosis via polysomnography / ohb-wc-mkoxrq sleep testing. Today, I ordered a split-night [...] this chart may have been created with [employer] voice recognition software. Occasi onal wrong-word or sound-alike substitutions may have occurred due to the inherent canseco itations of voice recognition software. Please read the chart carefully and recognize, using context, where these substitutions have occurred. Dl Matos, Supply Cataloguer - 02/08/2018 0800 PDTFormatting of this note may be diff erent from the original. 02/08/18 0700 Poole Depression Inventory-II Depression Score 7 - Minimal depression Insomnia Severity Index Insomnia Severity Index 14 [place] Sleepiness Scale Sitting and reading 3 Watching [...] | 2017 | Visit | Rehabilitation | [place] [address] [place] | | | | | | [place], | | | | | | [place] [address] | | | | | | [phone] | | | | | | | | | | | | Maria Esther Fields RN | | +--------+---------+ + + + | 06/02/ | Office | Cardiology | Jenny, | | | 2017 | Visit | | ADARSH Santo [address] | | | | | | [place], | | | | | | [place] [address] | | | | | | [phone] | | | | | | | | +--------+---------+ + + + + +--------+ + + | Name | Priori | Associated Diagnoses | Order Schedule | | | ty | | | + +--------+ + + | * [facility] - AMB Referral | Routin | Sleep apnea, | Ordered: 02/08/2018 | | | e | unspecified type | | + +--------+ + + as of this encounter Visit Diagnoses + + | Diagnosis | + + | Sleep apnea, unspecified type - Primary | + +
--- OUTSIDE RECORDS SUMMARY | ~2018-04-17 | XMS | Encounter Summary ---
Demographics + + + | Address | [address] | | | [place] [address] | + + + | Home Phone [...] + | [place] | ECON | [address] | | | | | #[place] | | | | | [address] | | + + + + + Care Team Providers + +------+ + | Care Blind Lacer Name | Role | Phone | + [...] + + | 04/06/ | Telephone | [facility] | Carolina Lindarisa, | Blood Pressure | | 2018 | | CARDIOLOGY [address] [place] | | | | | [place], | [place], | | | | | [place] [address] | [place] [address] | | | | | [phone] | [phone] | | | | | | | [...] | | | | | | [place] [address] | | | | | | [phone] | | | | | | | | | | | | Maria Esther Fields RN | | +--------+---------+ + + + | 06/02/ | Office | Cardiology | Jenny, | | | 2017 | Visit | | ADARSH aSnto | | | | | | [place], | | | | | | [place] [address] | | | | | | [phone] | | | | | | | | +--------+---------+ + + + as of this encounter Visit Diagnoses Not on filein this encounter"
--- OUTSIDE RECORDS SUMMARY | ~2018-04-17 | XMS | Encounter Summary ---
Demographics + + + | Address | [address] | | | [place] [address] | + + + | Home Phone [...] + | [place] | ECON | [address] | | | | | #[place] | | | | | [address] | | + + + + + Care Team Providers + +------+ + | Care Cryptoanalysis Teacher Name | Role | Phone | [...] | apnea, | [address] | [place] | | | | | unspecified | ST [place] | [place], | | | | | type | [place], [place] | [place] [address] | | | | | Procedures | [address] | Phone: | | | | | [place] POLYSOM | Phone: | [phone] | | | | | 6/>YRS SLEEP | [phone] | Fax: | | | | | W/CPAP 4/> | Fax: | [phone] | | | | | ADDL KATERINA | [phone] | | | | | | ATTND [place] | | | | | | [...] + + | 03/03/ | Hospital | [facility] | Sofie Sneed MD | Sleep apnea, | | 2018 - | Encounter | MED CTR SLEEP | [address] | unspecified type | | | | CENTER [address] [place] | [place], [place] | | | 03/04/ | | [place], [place] | [address] | | | 2017 | | [address] | | | | | | [phone] | | | +--------+ + + + [...] | | | | | (VITAMIN D-3) [address] | a week. | | | | [...] [place], | | | | | | [place] [address] | | | | | | [phone] | | | | | | | | | | | | Maria Esther Fields RN | | +--------+---------+ + + + | 06/02/ | Office | Cardiology | Jenny, | | | 2017 | Visit | | ADARSH Santo [address] | | | | | | [place], | | | | | | [place] [address] | | | | | | [phone] | | | | | | | [...] [facility] | | | [place] [address] Polysomnogram | | | Report on Bob Will performed on March 03 2800 PATIENT | | | IDENTIFICATION: Bob Will IS a 62 y.o..-year-old male. | | | with a history of coronary 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 post recent anterior wall | | | [place], post PTCA and stents on 03/15/17, cardiac [...] sleep study as | | | better. Tobacco Stripper Hand note: patient tried medium dreamwear nasal mask [...] this chart may have been created with [employer] voice | | | recognition software. Occasional [...] this chart may have been created with [employer] voice | | |recognition software. Occasional wrong-word [...] PDT [facility] | | [place], [place] [address]Rirupuumqrjor Report on Bob Chaudhary | | Suman performed on March 03 2800PATIENT IDENTIFICATION:Bob Will IS a 62 | | y.o..-year-old male. with a history of coronary 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 post recent anterior wall | | [place], post PTCA and stents on 03/15/17, cardiac [...] during sleep study as better. | | Tobacco Stripper Hand note: patient tried medium dreamwear nasal mask [...] of residual | | hypoxemia.2. Weight management. Dora Salmonions of this chart may have been | | created with [employer] voice recognition software. Occasional wrong-word or | [...] this chart may have been created with [employer] voice recognition software. Occasi onal wrong-word or [...]
--- OUTSIDE RECORDS SUMMARY | ~2018-04-17 | XMS | Clinical Summary ---
Demographics + + + | Address | [address] | | | [place] [address] | + + + | Home Phone [...] + + | MikeVenice | ECON | [address] | | | | | #[address] | | | | | [address] | | + + + + + Care Team Providers + +------+ + | Care Ski Patroller Name | Role | Phone | + [...] | | Activ | | (VITAMIN D-3) 99060 | a week. | | | | [...] | mouth Daily. | tablet | | / | | e | | | | | | 18 | | | + + +--------+---------+------+------+-------+ | metoprolol | TAKE ONE TABLET BY | 90 | 3 | 06/2 | | Activ | | succinate | MOUTH EVERY DAY | tablet | | /20 | | e | | (TOPROL-XL) 25 mg 24 | | | | 18 | | | | hr tablet | | | | | | | + + +--------+---------+------+------+-------+ | | Take 1 tablet by | 60 | 5 | 08/0 | | Activ | | sacubitril-valsartan | mouth 2 times daily. | tablet | | 3/20 | | e | | (ENTRESTO) 49-51 mg | | | | 18 | | | | per tablet | | | | | | | + + +--------+---------+------+------+-------+ | lisinopril | Take 1 tablet by | 60 | 5 | 03/07 | | Disco | | (PRINIVIL, ZESTRIL) | [...] | + + + + + | GRAZING EXAMINER-D (ZANED) Medtronic 10/16/17 EULOGIO Darby | 10/19/2017 | + + + + + | Overview: Formatting of this note may be different from the | | original. MODEL NAME MODEL# SERIAL# DATE IMPLANTED GENERATOR | | Medtronic [id number] 10/16/17 RV LEAD Medtronic [id number] 62 | | [id number] 10/16/17 A LEAD Medtronic [id number] [id number] 10/16/17 | | Coronary Sinus LEAD Medtronic 4598 88 [id number] 10/16/17 | | Indication: ischemic cardiomyopathy with reduced EF 30-35% | |Coronary Sinus LEAD Medtronic 4598 88 [id number] 10/16/17 | |Indication: ischemic cardiomyopathy with reduced [...] + + + | Overview: S/P Medtronic GRAZING EXAMINER-D 10-16-17 Dr Darby, [facility] Scan | | 10/13/17 shows [...] + + | Coronary 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 involving [place] coronary artery of | 04/06/2017 | | [place] heart without angina pectoris | | + [...] + + + | Acute anterior wall AL (HCC) | 04/03/2017 | + + + [...] involving | | | | | | [place] coronary | | | | | | artery of [place] | | | | | | heart [...] | | | 2017 | | | MD | | +--------+ + + + + | 03/18/ | Office | | Laruen Figueroa, | Implantable | | 2017 | Visit | | | defibrillator | | | | | | reprogramming/check | | | | | | (Primary Dx); GRAZING EXAMINER-D | | | | | | (AICD) [...] Prosper Esteves | Left leg weakness; | 2017 | visit | | MD Maame | Paresthesias/numbnes | | | | | | s | +--------+ + + + + | 02/08/ | Office | | Sofie Sneed MD | Sleep apnea, | 2017 | Visit | | | unspecified type | | | | | | (Primary Dx) | +--------+ + + + + | 02/03/ | Telephone | | Jenny | Blood Pressure | | 2017 | | | ADARSH Santo | | +--------+ + + + + | 01/18/ | Hospital | | Jenny | PAD (peripheral | | 2017 | Encounter | | ADARSH Santo | 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) [...] + + + + Plan of Treatment +--------+---------+ + + + | Date | Type | Specialty | Care Team | Description | +--------+---------+ + + + | 04/22/ | Office | | Lauren Figueroa, | | | 2017 | Visit | | MD Javid Crespo | | | | | | [place], | | | | | | [place] [address] | | | | | | [phone] | | | | | | | | | | | | Maria Esther Fields RN | | +--------+---------+ + + + | 06/02/ | Office | | Jenny, | | | 2017 | Visit | | ADARSH Santo | | | | | | [place], | | | | | | [place] [address] | | | | | | [phone] | | | | | | | | +--------+---------+ + + + + + + + [...] / Lot | + +--------+--------+ +--------+--------+--------+ | Blasting Helper-D MedtronicImplanted: | Implan | | MEDTRONIC - [...] N/A: | ISAACS | | 12/29/ | [id number] | | Eluting Coronary Stent System | | [place] | DIAGNOSTICS | | 2020 | 0-18 / | | Implanted: Qty: 1 on | | ry | - DAINA | | | | | 03/15/2017 by Monse Ross, | | | | | | /[id number] | | MD | | | | | | 60 | + +--------+--------+ +--------+--------+--------+ | Xience Alpine Everolimus | Stent | N/A: | ISAACS | | 11/03/ | [id number] | | Eluting Coronary Stent System | | [place] | DIAGNOSTICS | | 2020 | 0-23 / | | Implanted: Qty: 1 on | | ry | - DAINA | | | | | 03/15/2017 by Monse Ross, | | | | | | /[id number] | | MD | | | | [...] results section. | | | | | GRAZING EXAMINER-D (AICD) | | | | | | [...] | EXTREMITY LEFT W | e | 0930 PDT | 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) | procedure are in the | | CONTRAST | | | (HCC) | results section. | + +--------+ + + + from Last 3 Months Results ECHO Complete (04/02/2018 0900) + +-------+ [...] Demographics Patient Name | | | MIKE GRATIOT Room Number J Patient | | | Number [id number] Date of | | | Study 04/02/2018 Visit Number [id number] | | | Referring | | | Physician CAROLINA AGUILAR Number Date of | | | 1955 | | | Courtesy Booth Cashier FRANNIE ISAACS [facility] | | | Age 62 year(s) | | | Interpreting CAROLINA | | | LAUREN | | | Coal Dumping Equipment Operator LAUREN | | | [place] | | | | | | Gender Male Nurse | | | | | | Stress Acetone Recovery Worker Procedure Type of Study TTE procedure: ECHO [...] Diastolic: 0.9 cm EF | | | Buacfjoup23% EF Calculated: 32% Miscellaneous Aorta Aortic Root: [...] Diastolic: 0.9 cm | | | EF Unlhjxdzc57% | | | EF Calculated: 32% | [...] J | | | | Patient Number [id number] Date of Study 04/02/2018 | | | | Visit Number [id number] | | | | Referring Physician CAROLINA AGUILAR | | Number | | | | Date of 1955 Courtesy Booth Cashier FRANNIE ISAACS [facility] | | | | Age 62 year(s) Interpreting CAROLINA AGUILAR | | Coal Dumping Equipment Operator LAUREN FIGUEROA, | | MD | | | | Gender Male Nurse | | | | Stress Acetone Recovery Worker | | | | Procedure | | [...] PW Diastolic: 0.9 cm | | EF Awuevojcp36% | | EF Calculated: 32% | | [...] + +---------+ + + External Lab: DONTE (03/26/2018) + +--------+ + + | Component [...] | + + + Basic Metabolic Panel (03/26/2018) + +-------+ + [...] | Blood | + + Device Interrogation (03/18/2018 0800) + + + | Narrative | Performed At | + + + | Lauren | [facility] | | MD [place] 03/18/2018 9:26 PATIENT NAME: Ron Chaudhary | | | Mike : 1955: AGE: 62 y.o. ICD | | | Evaluation Report March 18, 2018 Reason for evaluation: | | | routineIndication for ICD: ICD-10-CM ICD-9-CM 1. Implantable | | | defibrillator reprogramming/check Z45.02 V53.32 Device Interrogation | | | 2. GRAZING EXAMINER-D (AICD) Medtronic 10/16/17 [facility]cker Z95.810 V45.02 Device | | | [...] + + | Performing | Address | City[facility] | Phone Number | | Organization | | | | + +---------+ + + | [facility] | | | | + +---------+ + + Sleep study diagnostic only (no PAP) (03/07/2018 1635) + + + | Narrative | Performed At | + + + | Sofie Sneed | | | 03/07/2018 16:57 [facility] | | | [place] [address] Polysomnogram | | | Report on Ron Mckeon performed on March 03 2800 PATIENT | | | IDENTIFICATION: Ron Mckeon IS a 62 y.o..-year-old male. | | | with a history of coronary 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 post recent anterior wall | | | AL, post PTCA and stents on 03/15/17, [...] sleep study as | | | better. Acetone Recovery Worker note: patient tried medium dreamwear nasal mask [...] this chart may have been created with [employer] voice | | | recognition software. Occasional [...] this chart may have been created with [employer] voice | | |recognition software. Occasional wrong-word [...] PDT [facility] | | [place], [place] [address]Qwrxkgkauxqsx Report on Ron Chaudhary | | Mike performed on March 03 2800PATIENT IDENTIFICATION:Ron Mckeon IS a 62 | | y.o..-year-old male. with a history of coronary 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 post recent anterior wall | | AL, post PTCA and stents on 03/15/17, [...] during sleep study as better. | | Acetone Recovery Worker note: patient tried medium dreamwear nasal mask [...] may have been | | created with [employer] voice recognition software. Occasional wrong-word or | [...] this chart may have been created with [employer] voice recognition software. Occasi onal wrong-word or sound-alike substitutions may have occurred due to the inherent canseco itations of voice recognition software. | |Please read the chart carefully and recognize, using context, where these substitutions hav e occurred. | + + CT Angiogram Lower Extremity Left w Con (01/18/2018 7245) + + + | Narrative | Performed [...] arteries. The anterior tibial artery | | | appears patent to the distal tibia/tibial level. The tibioperoneal | | | trunk is patent as is the peroneal artery and proximal to midportion | | | of the posterior tibial artery. The posterior tibial and dorsalis | | | pedis arteries are not opacified with contrast at the level of the | | | ankle. No aneurysm. Left lower extremity: Mild scattered [...] approximately 60-70%. The profundus femoris artery appears | | | patent. Mild short segment stenosis at the distal superficial | | | femoral artery, approximately 40-50%. The anterior tibial artery | | | appears patent. The dorsalis pedis artery is patent. The | | | tibioperoneal trunk, peroneal artery, and posterior tibial artery are | | | patent. No aneurysm. IMPRESSION - Diffuse atherosclerotic | | | vascular disease with mild infrarenal aortic ectasia measuring up to | | | 2.9 cm. Multifocal mild to moderate arterial stenosis at the left | | | lower extremity, most notable at the distal external iliac/proximal | | | common femoral artery with 60-70% stenosis. The dorsalis pedis | | | and posterior tibial arteries are not opacified [...] | Sebastian, Rad Results In - 01/18/2018 1203 PDT | | TECHNIQUE: After administration of [...] + + | Performing | Address | City[facility]State[facility] | Phone Number | | Organization | | | | + +---------+ + + | [facility] | | | | + +---------+ + + from Last 3 Months Insurance + +--------+ +--------+ +---------+ | Payer | Benefi | Subscriber | Type | Phone | Address | | | t Plan | ID | | | | | | / | | | | | | | Group | | | | | + +--------+ +--------+ +---------+ | [employer] | MODA | [id number] | Medica | [phone] | | | MEDICAID HMO | HEALTH | | id | [id number] | | | | MDCD | | | | | | | [place] | | | | | + +--------+ +--------+ +---------+ | [employer] | VETERA | [id number] | Indemn | | | | | [...] | Self | [birth year] | Home: | [address] | | | al/Fam | | 1956 | [phone] | [address] [place], | | | [place]wo | | | [address] | [place] [address] | + +--------+ +--------+ + +
--- OUTSIDE RECORDS SUMMARY | ~2018-04-17 | XMS | Encounter Summary ---
Demographics + + + | Address | [address] | | | [place] [address] | + + + | Home Phone [...] + + | SumanUmmVenice | ECON | [address] | | | | | #[place] | | | | | [address] | | + + + + + Care Team Providers + +------+ + | Care Motorized Squad Sergeant Name | Role | Phone | + [...] | CARDIOLOGY [address] | MD [address] [place] | | | | | [place], | [place], | | | | | [place] [address] | [place] [address] | | | | | [phone] | [phone] | | | | | | | [...] | 2017 | Visit | Rehabilitation | [place] [address] [place] | | | | | | [place], | | | | | | [place] [address] | | | | | | [phone] | | | | | | | | | | | | Maria Esther Fields RN | | +--------+---------+ + + + | 06/02/ | Office | Cardiology | Jenny, | | | 2017 | Visit | | ADARSH Santo [address] | | | | | | [place], | | | | | | [place] [address] | | | | | | [phone] | | | | | | | [...]
--- OUTSIDE RECORDS SUMMARY | ~2018-04-17 | XMS | Encounter Summary ---
Demographics + + + | Address | [address] | | | [place] [address] | + + + | Home Phone [...] + | [place] Will | ECON | [address] | | | | | #[place] | | | | | [address] | | + + + + + Care Team Providers + +------+ + | Care Metal Fabricator Name | Role | Phone | [...] + | 02/03/ | Telephone | [facility] | Jenny, | Blood Pressure | | 2017 | | CARDIOLOGY [address] | ADARSH Santo [address] | | | | | [employer] [place] [place], | [employer] [place], | | | | | [place] [address] | [place] [address] | | | | | [phone] | [phone] | | | | | | | [...] | 04/22/ | Office | Cardiac | RahuluvaldocathyZoëleo, | | | 2017 | Visit | Rehabilitation | MD Javid Crespo | | | | | | [place], | | | | | | [place] [address] | | | | | | [phone] | | | | | | | | | | | | Maria Esther Fields RN | | +--------+---------+ + + + | 06/02/ | Office | Cardiology | Jenny, | | | 2017 | Visit | | ADARSH Santo [address] | | | | | | [place], | | | | | | [place] [address] | | | | | | [phone] | | | | | | | | +--------+---------+ + + + as of this encounter Visit Diagnoses Not on filein this encounter"
--- OUTSIDE RECORDS SUMMARY | ~2018-04-17 | XMS | Encounter Summary ---
Demographics + + + | Address | [address] | | | [place] [address] | + + + | Home Phone [...] + | [place] Will | ECON | [address] | | | | | #[place] | | | | | [address] | | + + + + + Care Team Providers + +------+ + | Care Shipping Receiving Manager Name | Role | Phone | [...] Ischemic | MD Lauren | [address] | | | | | cardiomyopat | [address] | [place], | | | | | hy | [address] | [place] | | | | | Procedures | [place], | [address] | | | | | ECHO | [place] [address] | Phone: | | | | | Complete [place] | Phone: | [phone] | | | | | ECHO HEART | [phone] | Fax: | | | | | XTHORACIC,[place] | Fax: | [phone] | | | | | MPLETE W | [phone] | | | | | | DOPPLER [...] | Atherosclero | [address] | [address] | | | | | tic heart | [address] | [address] | | | | | disease of | [place], | [place], | | | | | [place] | [place] [address] | [place] [address] | | | | | coronary | Phone: | Phone: | | | | | artery | [phone] | [phone] | | | | | without | Fax: | Fax: | | | | | angina | [phone] | [phone] | | | | | pectoris ST [...] + + | 03/18/ | Office | [facility] | Lauren Figueroa, | Implantable | | 2018 | Visit | CARDIOLOGY [address] | [address] [place] | defibrillator | | | | [place], | [place], | reprogramming/check | | | | [place] [address] | [place] [address] | (Primary Dx); ELECTRONIC SCALE ASSEMBLER AND TESTER-D | | | | [phone] | [phone] | (AICD) Medtronic | | | | | | 10/16/17 [facility]; | | | | | | Ischemic [...] of lisinopril Where to go for labs: [facility]- [address] [facility] Echo: Date: Check-In Time: Where to [...] thrombus, recent status post stents to , ELECTRONIC SCALE ASSEMBLER AND TESTER-D placement in [facility] on 10/17/2017. He is being seen today [...] Patient has been having problems sleeping at [facility], but relates it to the hot weather. Patient has no complaints of chest pain or chest dis comfort both at rest and on exertion. There is no palpitation, dizziness or lightheadedness. Patient has no complaints of ankle or leg swelling. Patient can sleep on one pillow at [facility] without difficulty breathing. MEDICAL, SURGICAL, AND PERSONAL HISTORY Past Medical, Surgical, Family, and Social History are reviewed in EPIC. CURRENT PROBLEMS Patient Active Problem List Diagnosis Acute anterior wall DE Coronary 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 involving [place] coronary artery of [place] heart without angina pectoris Ischemic cardiomyopathy Pulmonary edema ELECTRONIC SCALE ASSEMBLER AND TESTER-D (AICD) Medtronic 10/16/17 [facility]cker Implantable defibrillator reprogramming/check H/O atrial flutter Tachycardia GERD (gastroesophageal reflux disease) PAD (peripheral 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) CURRENT MEDICATIONS Current Outpatient Prescriptions Medication Sig Dispense Refill aspirin 81 MG tablet Take 81 mg by mouth Daily. atorvaSTATin (LIPITOR) 80 MG tablet Take 1 tablet by mouth nightly. 30 tablet 5 Cholecalciferol (VITAMIN D-3) 65198 units CAPS Take by mouth Once a [...] reviewed during visit today primarily from [facility]: LIPID Lab Results Component Value Date [...] shock requiring IABP, pressor (dopa mine, norepinephrine). [facility] and [facility] were on divert. Patient wasn't transferred to [facility]. B. Echocardiogram 03/17/2017 shows LV ejection fraction is severely de creased, visually estimated left ventricular ejection fraction is 20 - 25%, left ventricular systolic thickening is segmentally abnormal,mildly reduced RV systolic function. Normal R V size, no significant valvular abnormalities seen, compared to the most recent exam dated, 03/15/2017, there is no significant changes C. At [facility], patient had another STEMI code 03/29, with [...] to follow up closely with a local core layer machine operator in [place] . He wias dischargeed with a LifeVest [...] will tr ansfer the patient to [facility] for consideration of urgent coronary revascularization. J. [...] He is in a class II of [place] Heart Association functional class. There is no [...] myocardium in these regions. C. S/P Medtronic ELECTRONIC SCALE ASSEMBLER AND TESTER-D 2-9-18 Dr Darby, [facility]. Ice interrogation today shows one episode of [...] week ago. This was after h is DE and at the same time patient was having ventricular tachycardia. He was initiated on amiodarone and then discontinued before discharge. The plan is to monitor through his device and see if this is a problem that needs to be addressed. Patient is not on anticoagulation he was left that way from [facility]. Patient has had several GI bleeds and [...] reviewed and edited this note. Krysten Lehman [facility] 03/18/2018 I, Lauren Figueroa MD, personally performed the services described in this documentation, as scribed in my presence and it is both accurate and complete. Krysten Lehman [facility] 03/18/2018 8:01 Electronically signed by: Lauren Figueroa MD [facility] 03/18/2018 Portions of this chart may have been created with happyview voice recognition software. Occasi onal wrong-word or [...] | 04/22/ | Office | Cardiac | Laruen Figueroa, | | | 2018 | Visit | Rehabilitation | [address] [place] | | | | | | [place], | | | | | | [place] [address] | | | | | | [phone] | | | | | | | | | | | | Maria Esther Fields RN | | +--------+---------+ + + + | 06/02/ | Office | Cardiology | Jenny, | | | 2017 | Visit | | ADARSH Santo [address] | | | | | | [place], | | | | | | [place] [address] | | | | | | [phone] | | | | | | | [...] results section. | | | | | ELECTRONIC SCALE ASSEMBLER AND TESTER-D (AICD) | | | | | | [...] Demographics Patient Name | | | MIKE [facility] Number J Patient | | | Number [id number] Date of | | | Study 04/02/2018 Visit Number [id number] | | | Referring | | | Physician CAROLINA AGUILAR Number Date of | | | 1955 | | | Investor Relations Director FRANNIE ISAACS [facility] | | | Age 62 year(s) | | | Interpreting CAR[place]INA | | | LAUREN | | | Sql Manager LAUREN | | | [place] | | | | | | Gender Male Nurse | | | | | | Stress Admitting Officer Procedure Type of Study TTE procedure: ECHO [...] Diastolic: 0.9 cm EF | | | Efluetpxn81% EF Calculated: 32% Miscellaneous Aorta Aortic Root: [...] Diastolic: 0.9 cm | | | EF Bgplgdzsg23% | | | EF Calculated: 32% | [...] J | | | | Patient Number [id number] Date of Study 04/02/2018 | | | | Visit Number [id number] | | | | Referring Physician CAROLINA AGUILAR | | Number | | | | Date of 1955 Investor Relations Director FRANNIE ISAACS [facility] | | | | Age 62 year(s) Interpreting CAROLINA AGUILAR | | Sql Manager LAUREN FIGUEROA | | | | | | Gender Male Nurse | | | | Stress Admitting Officer | | | | Procedure | | [...] PW Diastolic: 0.9 cm | | EF Hwrbblxcz51% | | EF Calculated: 32% | | [...] | + + + | Lauren | [facility] | | MD [place] 03/18/2018 9:26 PATIENT NAME: Bob Chaudhary | | | [place] : 1955: AGE: 62 y.o. ICD | | | Evaluation Report March 18, 2018 Reason for evaluation: | | | routineIndication for ICD: ICD-10-CM ICD-9-CM 1. Implantable | | | defibrillator reprogramming/check Z45.02 V53.32 Device Interrogation | | | 2. ELECTRONIC SCALE ASSEMBLER AND TESTER-D (AICD) Medtronic 10/16/17 [facility] Z95.810 V45.02 Device | | | Interrogation [...] implantable cardiac defibrillator | + + | ELECTRONIC SCALE ASSEMBLER AND TESTER-D (AICD) Medtronic 10/16/17 EULOGIO Darby | + + | Ischemic cardiomyopathy | + + | Other specified forms of chronic ischemic heart disease | + + | Tachycardia | + + | Tachycardia, unspecified | + +
--- OUTSIDE RECORDS SUMMARY | ~2018-04-17 | XMS | Encounter Summary ---
Demographics + + + | Address | [address] | | | [place] [address] | + + + | Home Phone [...] + | [place] Will | ECON | [address] | | | | | #[address] | | | | | [address] | | + + + + + Care Team Providers + +------+ + | Care Certified Bench Jeweler Technician Name | Role | Phone | [...] | apnea, | [address] | [place] | | | | | unspecified | [place] | [place], | | | | | type | [place], [place] | [place] [address] | | | | | Procedures | [address] | Phone: | | | | | [place] POLYSOM | Phone: | [phone] | | | | | 6/>YRS SLEEP | [phone] | Fax: | | | | | W/CPAP 4/> | Fax: | [phone] | | | | | ADDL KATERINA | [phone] | | | | | | ATTND [place] | | | | | | | [...] + + | 03/03/ | Hospital | [facility] | Sofie Sneed MD | Sleep apnea, | | 2018 - | Encounter | [facility] | [address] | unspecified type | | | | CENTER [address] [place] | [place], [place] | | | 03/04/ | | [place], [place] | [address] | | | 2017 | | [address] | | | | | | [phone] | | | +--------+ + + + [...] | | | | | (VITAMIN D-3) [address] | a week. | | | | [...] | | | | | | [place] [address] | | | | | | [phone] | | | | | | | | | | | | Maria Esther Fields RN | | +--------+---------+ + + + | 06/02/ | Office | Cardiology | Jenny, | | | 2017 | Visit | | ADARSH Santo [address] | | | | | | [place], | | | | | | [place] [address] | | | | | | [phone] | | | | | | | [...] [facility] | | | [place] [address] Polysomnogram | | | Report on Bob Will performed on March 03 2800 PATIENT | | | IDENTIFICATION: Bob Will IS a 62 y.o..-year-old male. | | | with a history of coronary 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 post recent anterior wall | | | MD, post PTCA and stents on 03/15/17, cardiac [...] sleep study as | | | better. Gastrointestinal Technician note: patient tried medium dreamwear nasal mask [...] this chart may have been created with [employer] voice | | | recognition software. Occasional [...] this chart may have been created with [employer] voice | | |recognition software. Occasional wrong-word [...] PDT [facility] | | [place], [place] [address]Fnjfcxhachylb Report on Bob Chaudhary | | Suman performed on March 03 2800PATIENT IDENTIFICATION:Bob Will IS a 62 | | y.o..-year-old male. with a history of coronary 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 post recent anterior wall | | MD, post PTCA and stents on 03/15/17, cardiac [...] during sleep study as better. | | Gastrointestinal Technician note: patient tried medium dreamwear nasal mask [...] may have been | | created with [employer] voice recognition software. Occasional wrong-word or | [...] this chart may have been created with [employer] voice recognition software. Occasi onal wrong-word or [...]
--- OUTSIDE RECORDS SUMMARY | ~2018-04-17 | XMS | Encounter Summary ---
Demographics + + + | Address | [address] | | | [place] [address] | + + + | Home Phone [...] + | [place] | ECON | [address] | | | | | #[address] | | | | | [address] | | + + + + + Care Team Providers + +------+ + | Care Special Forces Communications Sergeant Name | Role | Phone | [...] + | 02/03/ | Telephone | [facility] | Jenny, | Blood Pressure | | 2017 | | CARDIOLOGY [address] | ADARSH Santo [address] | | | | | [place], | [place], | | | | | [place] [address] | [place] [address] | | | | | [phone] | [phone] | | | | | | | [...] | | | | | | [place] [address] | | | | | | [phone] | | | | | | | | | | | | Maria Esther Fields RN | | +--------+---------+ + + + | 06/02/ | Office | Cardiology | Jenny, | | | 2017 | Visit | | ADARSH Santo [address] | | | | | | [place], | | | | | | [place] [address] | | | | | | [phone] | | | | | | | | +--------+---------+ + + + as of this encounter Visit Diagnoses Not on filein this encounter"
--- OUTSIDE RECORDS SUMMARY | ~2018-04-17 | XMS | Clinical Summary ---
Demographics + + + | Address | [address] [place] [address] [address] | | | [place] [address] | + + + | Home Phone [...] | | | | | [place] [address] | | + + + + + Care Team Providers + +------+ + | Care District Representative Name | Role | Phone | + +------+ + | Chato Matson MD | PP | | + +------+ + Source Comments EULOGIO is fully live on both [facility] Ambulatory and [facility] InPatient.[facility] Allergies No Known Allergies Current [...] resynchronization therapy | 10/17/2017 | | defibrillator (INSIDE OUTSIDE SALES REPRESENTATIVE-D) | | + + + | Influenza, [...] edema. 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 | | -secretions improving, cough strong [...] stayExtubated 03/22, started on | | NC G2Butlb infusion begun 03/22 for daily goal -1 to -2LAfterload | | reduction for SBC < 130 to prevent flash pulmonary edema | + + + + + + | STEMI (ST elevation myocardial infarction) ([facility]) | 03/15/20 | | | | [...] cath | | lab procedure at [facility]. Was shocked 17 times | | Targeted [...] | | | HANDY | | | [id number] | | Tejal Pettit MD | | | | | | X / | | | | | | | | /[id number] | | | | | | | | [address] | + +------+--------+ +--------+--------+--------+ Results Not on [...] | PPO | [phone] | [address] [address] [place] | | | CROSS | | | [address] | [place] [address] | | | FEDERA | | | | | | | L | | | | | + +--------+ +--------+ + + | MEDICAID [place] | OHP | [id number] | Medica | [phone] [address] [address] | | | PLUS | | id | [phone] | [place] [address] | | | OPEN | | | [...] | Self | [birth year] | Home: | [address] | | | al/Fam | | 1956 | [phone] | [address] [place] | | | taiwo | | | [phone] | [address] | + +--------+ +--------+ + +
--- OUTSIDE RECORDS SUMMARY | ~2018-04-17 | XMS | Encounter Summary ---
Demographics + + + | Address | [address] | | | [place] [address] | + + + | Home Phone [...] + + | [place] | ECON | [address] | | | | | #[address] | | | | | [address] | | + + + + + Care Team Providers + +------+ + | Care Music Theory Teacher Name | Role | Phone | [...] | CARDIOLOGY [address] | MD [address] | | | | | [place], | [place], | | | | | [place] [address] | [place] [address] | | | | | [phone] | [phone] | | | | | | | [...] | 2017 | Visit | Rehabilitation | [place] [address] | | | | | | [place], | | | | | | [place] [address] | | | | | | [phone] | | | | | | | | | | | | Maria Esther Fields RN | | +--------+---------+ + + + | 06/02/ | Office | Cardiology | Jenny, | | | 2017 | Visit | | ADARSH Santo [address] | | | | | | [place], | | | | | | [place] [address] | | | | | | [phone] | | | | | | | [...]
--- OUTSIDE RECORDS SUMMARY | ~2018-04-17 | XMS | Encounter Summary ---
Demographics + + + | Address | [address] | | | [place] [address] | + + + | Home Phone [...] + | [place] | ECON | [address] | | | | | #[address] | | | | | [address] | | + + + + + Care Team Providers + +------+ + | Care Gum Scoring Machine Operator Name | Role | Phone [...] | | | | | (congestive) | [address] | [address] | | | | | heart | [place], | [place] | | | | | failure | [place] [address] | [place], [place] | | | | | (HCC) | Phone: | [address] | | | | | | [phone] | Phone: | | | | | | Fax: | [phone] | | | | | | [phone] | Fax: | | | | | | | [phone] | + + + + + + [...] | tic heart | [address] | [address] | | | | | disease of | [place], | [place], | | | | | [place] | [place] [address] | [place] [address] | | | | | coronary | Phone: | Phone: | | | | | artery | [phone] | [phone] | | | | | without | Fax: | Fax: | | | | | angina | [phone] | [phone] | | | | | pectoris ST [...] + + | 04/09/ | Office | [facility] | Randy Figueroa, | Coronary artery | | 2017 | Visit | CARDIOLOGY [address] | [address] [facility] | disease involving | | | | [place], | [place], | [place] coronary | | | | [place] [address] | [place] [address] | artery of [place] | | | | [phone] | [phone] | heart without angina | | | [...] coronary 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 post recent anterior wall MT, post PTCA and stents of the left main, LAD and LCx on 03/15/17, cardiac shoc k, left atrial appendage thrombus, recent status post stents to , FUR REPAIR INSPECTOR-D placement in [facility] on 10/17/2017. He is being seen today [...] Active Problem List Diagnosis Acute anterior wall MT Coronary 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 involving kiowa tribe coronary artery of ki[place] tribe heart without angina pectoris Ischemic cardiomyopathy Pulmonary edema FUR REPAIR INSPECTOR-D (AICD) Medtronic 10/16/17 [facility] Stecker Implantable defibrillator reprogramming/check H/O atrial flutter Tachycardia GERD (gastroesophageal reflux disease) PAD (peripheral 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) CURRENT MEDICATIONS Current Outpatient Prescriptions Medication Sig Dispense Refill aspirin 81 MG tablet Take 81 mg by mouth Daily. atorvaSTATin (LIPITOR) 80 MG tablet Take 1 tablet by mouth nightly. 30 tablet 5 Cholecalciferol (VITAMIN D-3) 65120 units CAPS Take by mouth Once a [...] reviewed during visit today primarily from [facility]: LIPID Lab Results Component Value Date LDLEX [...] shock requiring IABP, pressor (dopa mine, norepinephrine). [facility] and [facility] were on divert. Patient wasn't transferred to [...] there is no significant changes C. At [facility], patient had another STEMI code 03/29, with [...] to follow up closely with a local fairground operator in [place] . He wias dischargeed with a LifeVest [...] we will tr ansfer the patient to [facility] for consideration of urgent coronary revascularization. J. [...] He is in a class I of [place] [employer] functional class. There is no [...] myocardium in these regions. C. S/P Medtronic FUR REPAIR INSPECTOR-D 10-16-17 Dr Darby, [facility]. Ice interrogation today shows one episode of [...] week ago. This was after h is MT and at the same time patient was having ventricular tachycardia. He was initiated on amiodarone and then discontinued before discharge. The plan is to monitor through his device and see if this is a problem that needs to be addressed. Patient is not on anticoagulation he was left that way from [facility]. Patient has had several GI bleeds and [...] reviewed and edited this note. Heather Cui Injection Molder 04/09/2018 I, Randy Figueroa MD, personally performed the services described in this documentation, as scribed in my presence and it is both accurate and complete. Heather Cui, Med Ass t 04/09/2018 8:28 Electronically signed by: Randy Figueroa MD [facility] 04/09/2018 Portions of this chart may have been created with DataPop voice recognition software. Occasi onal wrong-word or [...] [place] | | | | | | [place], | | | | | | [place] [address] | | | | | | [phone] | | | | | | | | | | | | Maria Esther Fields RN | | +--------+---------+ + + + | 06/02/ | Office | Cardiology | Jenny, | | | 2017 | Visit | | ADARSH Santo | | | | | | [place], | | | | | | [place] [address] | | | | | | [phone] | | | | | | | [...] + + | Coronary 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 involving kiowa tribe coronary artery of kiowa tribe heart without angina | | pectoris - Primary | + + | Ischemic cardiomyopathy | + + | Other specified forms of chronic ischemic heart disease | + + | Heart failure, unspecified HF chronicity, unspecified heart failure type (HCC) | + +
--- OUTSIDE RECORDS SUMMARY | ~2018-04-17 | XMS | Encounter Summary ---
Demographics + + + | Address | [address] | | | [place] [address] | + + + | Home Phone [...] + | [place] | ECON | [address] | | | | | #[address] | | | | | [address] | | + + + + + Care Team Providers + +------+ + | Care Dulite Machine Bluer Name | Role | Phone | + [...] | | PAD | Jenny, | [address] [place] | | | | | (peripheral | Hansa, TOOL CHASER | [place], | | | | | artery | [address] | [place] [address] | | | | | disease) | [place] | Phone: | | | | | (HCC) | [place], | [phone] | | | | | Procedures | [place] | Fax: | | | | | CT Angiogram | [address] | [phone] | | | | | Lower | Phone: | | | | | | Extremity | [phone] | | | | | | Left w Con | Fax: | | | | | | | [phone] | | +--------+--------+ + + + + [...] | | PAD | Jenny, | [address] [place] | | | | | (peripheral | Hansa, TOOL CHASER | [place], | | | | | artery | [address] | [place] [address] | | | | | disease) | [place] | Phone: | | | | | (HCC) | [place], | [phone] | | | | | Procedures | [place] | Fax: | | | | | CT Angiogram | [address] | [phone] | | | | | Lower | Phone: | | | | | | Extremity | [phone] | | | | | | Left w Con | Fax: | | | | | | | [phone] | | +--------+--------+ + + + + [...] | | PAD | Jenny, | [address] [place] | | | | | (peripheral | Hansa, TOOL CHASER | [place], | | | | | artery | [address] | [place] [address] | | | | | disease) | [place] | Phone: | | | | | ([facility]) | [place], | [phone] | | | | | Procedures | [place] | Fax: | | | | | CT Angiogram | [address] | [phone] | | | | | Lower | Phone: | | | | | | Extremity | [phone] | | | | | | Left w Con | Fax: | | | | | | | [phone] | | +--------+--------+ + + + + Encounter Details +--------+ + + + + | Date | Type | Department | Care Team | Description | +--------+ + + + + | 01/18/ | Hospital | [facility] | Jenny, | PAD (peripheral | | 2018 | Encounter | [facility] [address] | ADARSH Santo [address] | 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) | | | | [place], | [place], | (HCC) | | | | [place] [address] | [place] [address] | | | | | [phone] | [phone] | | | | | | | [...] | | | | | (VITAMIN D-3) [address] | a week. | | | | [...] [place], | | | | | | [place] [address] | | | | | | [phone] | | | | | | | | | | | | Maria Esther Fields RN | | +--------+---------+ + + + | 06/02/ | Office | Cardiology | Jenny, | | | 2017 | Visit | | ADARSH Santo [address] | | | | | | [place], | | | | | | [place] [address] | | | | | | [phone] | | | | | | | [...] the | | CONTRAST | | | ([facility]) | results section. | + +--------+ + + + in this encounter Results CT Angiogram Lower Extremity Left w Con (01/18/2018 0930) + + + | Narrative | Performed [...] | PAD (peripheral 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) (HCC) | + + | Unspecified disorders of arteries and arterioles | + + Administered Medications + +--------+ +---------+------+------+ | Medication Order | MAR | Action | Dose | Rate | Site | | | Action | Date | | | | + +--------+ +---------+------+------+ | iohexol (OMNIPAQUE 350) 350 | Given | | 200 mLs | | | | mg/mL injection 200 mL 200 mL, | | 8 9:32 | | | | | Intravenous, ONCE PRN, Other, | | PDT | | | | | Starting 01/18/18 at 0931, For | | | | | | | 1 dose, Cat Scanner | | | | | | + +--------+ +---------+------+------+ +---+---+ | | | +---+---+ + +------+ +---------+-------+---+ | sodium chloride 0.9% (NS) bolus | Push | | 100 mLs | 6000 | | | 100 mL 100 mL, Intravenous, | | 8 9:32 | | mL/hr | | | Administer over 1 Minutes, ONCE | | PDT | | | | | PRN, for contrast study, Starting | | | | | | | 01/18/18 at 0931, For 1 dose, | | | | | | | May infuse at a different rate | | | | | | | per protocol. | | | | | | + +------+ +---------+-------+---+ +---+---+ | | | +---+---+ in this encounter"
--- OUTSIDE RECORDS SUMMARY | ~2018-04-17 | XMS | Clinical Summary ---
Demographics + + + | Address | [address] | | | [place] [address] | + + + | Home Phone [...] + + | [place] | ECON | [address] | | | | | #[place] | | | | | [address] | | + + + + + Care Team Providers + +------+ + | Care Central Office Supervisor Name | Role | Phone [...] | | Activ | | (VITAMIN D-3) [address] | a week. | | | | [...] | + + + + + | TRUSS DRIVER HELPER-D (ZANED) Medtronic 10/16/17 EULOGIO Darby | 10/19/2017 | + + + + + | Overview: Formatting of this note may be different from the | | original. MODEL NAME MODEL# SERIAL# DATE IMPLANTED GENERATOR | | Medtronic [id number] 10/16/17 RV LEAD Medtronic [id number] 62 | | [id number] 10/16/17 A LEAD Medtronic 5076 52 [id number] 10/16/17 | | Coronary Sinus LEAD Medtronic 4598 88 [id number] 10/16/17 | | Indication: ischemic cardiomyopathy with reduced EF 30-35% | |Coronary Sinus LEAD Medtronic 4598 88 [id number] 10/16/17 | |Indication: ischemic cardiomyopathy with reduced [...] + + + | Overview: S/P Medtronic TRUSS DRIVER HELPER-D 10-16-17 Dr Darby, [facility] Scan | | 10/13/17 shows [...] + + | Coronary 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 involving coqu[place] coronary artery of | 04/06/2017 | | [place] heart without angina pectoris | | + [...] + + + | Acute anterior wall [place] (HCC) | 04/03/2017 | + + + [...] + | 04/09/ | Office | | aLuren Figueroa, | Coronary artery | | 2017 | Visit | | | disease involving | | | | | | [place] coronary | | | | | | artery of [place] | | | | | | heart [...] | | | | | (Primary Dx); TRUSS DRIVER HELPER-D | | | | | | (AICD) [...] | | | | | | [place] [address] | | | | | | [phone] | | | | | | | | | | | | Maria Esther Fields RN | | +--------+---------+ + + + | 06/02/ | Office | | Jenny, | | | 2017 | Visit | | ADARSH Santo | | | | | | [place], | | | | | | [place] [address] | | | | | | [phone] | | | | | | | [...] / Lot | + +--------+--------+ +--------+--------+--------+ | Funeral Attendant-D MedtronicImplanted: | Implan | | MEDTRONIC - [...] N/A: | ISAACS | | 12/29/ | [id number] | | Eluting Coronary Stent System | | [place] | DIAGNOSTICS | | 2020 | 0-18 / | | Implanted: Qty: 1 on | | ry | - DAINA | | | | | 03/15/2017 by Monse Ross, | | | | | | /[id number] | | MD | | | | | | 60 | + +--------+--------+ +--------+--------+--------+ | Xience Alpine Everolimus | Stent | N/A: | ISAACS | | 11/03/ | [id number] | | Eluting Coronary Stent System | | Mackay | DIAGNOSTICS | | 2020 | 0-23 / | | Implanted: Qty: 1 on | | ry | - DAINA | | | | | 03/15/2017 by Monse Ross, | | | | | | /[id number] | | MD | | | | [...] results section. | | | | | TRUSS DRIVER HELPER-D (AICD) | | | | | | [...] Demographics Patient Name | | | [place]KE [place] Room Number J Patient | | | Number [id number] Date of | | | Study 04/02/2018 Visit Number [id number] | | | Referring | | | Physician CAROLINA AGUILAR Number Date of | | | 1955 | | | Casting Agent FRANNIE ISAACS [facility] | | | Age 62 year(s) | | | Interpreting CAR[place]INA | | | LAUREN | | | Mica Laminating Machine Feeder LAUREN | | | [place] | | | | | | Gender Male Nurse | | | | | | Stress Train Director Procedure Type of Study TTE procedure: ECHO [...] Diastolic: 0.9 cm EF | | | Amevwqjvk27% EF Calculated: 32% Miscellaneous Aorta Aortic Root: [...] Diastolic: 0.9 cm | | | EF Qjlqkjudf47% | | | EF Calculated: 32% | [...] J | | | | Patient Number [id number] Date of Study 04/02/2018 | | | | Visit Number [id number] | | | | Referring Physician CAROLINA AGUILAR | | Number | | | | Date of 1955 Casting Agent FRANNIE ISAACS [facility] | | | | Age 62 year(s) Interpreting CAROLINA AGUILAR | | Mica Laminating Machine Feeder LAUREN FIGUEROA, | | MD | | | | Gender Male Nurse | | | | Stress Train Director | | | | Procedure | | [...] PW Diastolic: 0.9 cm | | EF Xnoicedwc37% | | EF Calculated: 32% | | [...] V53.32 Device Interrogation | | | 2. TRUSS DRIVER HELPER-D (AICD) Medtronic 10/16/17 [facility] Stecker Z95.810 V45.02 [...] [facility] | | | [place] [address] Polysomnogram | | | Report on Ron Mckeon performed on March 03 2800 PATIENT | | | IDENTIFICATION: Ron Mckeon IS a 62 y.o..-year-old male. | | | with a history of coronary 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 post recent anterior wall | | | [place], post PTCA and stents on 03/15/17, [...] sleep study as | | | better. Train Director note: patient tried medium dreamwear nasal mask [...] this chart may have been created with Scandlines voice | | | recognition software. Occasional [...] this chart may have been created with Scandlines voice | | |recognition software. Occasional wrong-word [...] PDT [facility] | | [place], [place] [address]Pkvsqempjtemd Report on Ron Chaudhary | | Mike performed on March 03 2800PATIENT IDENTIFICATION:Ron Mckeon IS a 62 | | y.o..-year-old male. with a history of coronary 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 post recent anterior wall | | [place], post PTCA and stents on 03/15/17, [...] during sleep study as better. | | Train Director note: patient tried medium dreamwear nasal mask [...] may have been | | created with Scandlines voice recognition software. Occasional wrong-word or | [...] this chart may have been created with Scandlines voice recognition software. Occasi onal wrong-word or sound-alike substitutions may have occurred due to the inherent canseco itations of voice recognition software. | |Please read the chart carefully and recognize, using context, where these substitutions hav e occurred. | + + CT Angiogram Lower Extremity Left w Con (01/18/2018 9039) + + + | Narrative | Performed [...] | [employer] | MODA | [id number] | Medica | +1- | | | MEDICAID HMO | HEALTH | | id | [id number] | | | | MDCD | | | | | | | [place] | | | | | + +--------+ +--------+ +---------+ | [employer] | [employer]ETER[employer] | [id number] | Indemn | | | | | [...] | Self | [birth year] | Home: | [address] | | | al/Fam | | 1956 | [phone] | [address] [place], | | | [place]wo | | | [address] | [place] [address] | + +--------+ +--------+ + +
--- OUTSIDE RECORDS SUMMARY | ~2018-04-17 | XMS | Encounter Summary ---
Demographics + + + | Address | [address] | | | [place] [address] | + + + | Home Phone [...] + | [place] | ECON | [address] | | | | | #[place] | | | | | [address] | | + + + + + [...] | | PAD | Jenny, | [address] [place] | | | | | (peripheral | Hansa, LENS SILVERER | [place], | | | | | artery | [address] | [place] [address] | | | | | disease) | [place] | Phone: | | | | | (HCC) | [place], | [phone] | | | | | Procedures | [place] | Fax: | | | | | CT Angiogram | [address] | [phone] | | | | | Lower | Phone: | | | | | | Extremity | [phone] | | | | | | Left w Con | Fax: | | | | | | | [phone] | | +--------+--------+ + + + + [...] | | PAD | Jenny, | [address] [place] | | | | | (peripheral | Hansa, LENS SILVERER | [place], | | | | | artery | [address] | [place] [address] | | | | | disease) | [place] | Phone: | | | | | (HCC) | [place], | [phone] | | | | | Procedures | [place] | Fax: | | | | | CT Angiogram | [address] | [phone] | | | | | Lower | Phone: | | | | | | Extremity | [phone] | | | | | | Left w Con | Fax: | | | | | | | [phone] | | +--------+--------+ + + + + [...] | | PAD | Jenny, | [address] [place] | | | | | (peripheral | Hansa, LENS SILVERER | [place], | | | | | artery | [address] | [place] [address] | | | | | disease) | [place] | Phone: | | | | | [facility] | [place], | [phone] | | | | | Procedures | [place] | Fax: | | | | | CT Angiogram | [address] | [phone] | | | | | Lower | Phone: | | | | | | Extremity | [phone] | | | | | | Left w Con | Fax: | | | | | | | [phone] | | +--------+--------+ + + + + Encounter Details +--------+ + + + + | Date | Type | Department | Care Team | Description | +--------+ + + + + | 01/18/ | Hospital | [facility] | Jenny, | PAD (peripheral | | 2018 | Encounter | MED CTR [facility] [address] | ADARSH Santo [address] | 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) | | | | [place], | [place], | (HCC) | | | | [place] [address] | [place] [address] | | | | | [phone] | [phone] | | | | | | | [...] | | | | | (VITAMIN D-3) [address] | a week. | | | | [...] [place], | | | | | | [place] [address] | | | | | | [phone] | | | | | | | | | | | | Maria Esther Fields RN | | +--------+---------+ + + + | 06/02/ | Office | Cardiology | Jenny, | | | 2017 | Visit | | ADARSH Santo [address] | | | | | | [place], | | | | | | [place] [address] | | | | | | [phone] | | | | | | | [...] the | | CONTRAST | | | [facility] | results section. | + [...]
--- OUTSIDE RECORDS SUMMARY | ~2018-04-17 | XMS | Encounter Summary ---
Demographics + + + | Address | [address] | | | [place] [address] | + + + | Home Phone [...] + + | [place] | ECON | [address] [facility] | | | | | #[place] | | | | | [address] | | + + + + + Care Team Providers + +------+ + | Care Outdoor Emergency Care Technician Name | Role | Phone | [...] Medicine and | | Chato | Prosper Iasbel MD | | | | Rehabilitatio | Radiculopath | MD Ronald | [address] | | | | n | y Numbness | [address] [facility] | | | | | and tingling | [place] | [facility] [place] | | | | | of both | Drive [place] | [address] Phone: | | | | | legs | [place], [place] | [phone] | | | | | Weakness | [address] | Fax: | | | | | Procedures | Phone: | [phone] | | | | | [place] | [phone] | | | | | | &/SENS 3-4 | Fax: | | | | | | NRV CNDJ | [phone] | | | | | | PRECONF [...] [address] | Paresthesias/numbnes | | | | [place], | [address] | s | | | | [place] [address] | [address] | | | | | [phone] | | | +--------+ + + + [...] may be different from t he original. [facility] Musculoskeletal, Sports and Spine, Physiatry [place] [facility] [address] [address] Test Date: 02/24/2018 Patient Name: Bob Will : 1955 Physician: Prosper Esteves MD MR #: [id number] Sex: Male Referring Physician: Chato Matson MD [...] hesitate to call. Prosper Esteves MD Fellow, [employer]. in [...] | | | | | | [place] [address] | | | | | | [phone] | | | | | | | | | | | | Maria Esther Fields RN | | +--------+---------+ + + + | 06/02/ | Office | Cardiology | Jenny, | | | 2017 | Visit | | ADARSH Santo [address] | | | | | | [facility] [place], | | | | | | [place] [address] | | | | | | [phone] | | | | | | | | +--------+---------+ + + + as of this encounter Visit Diagnoses + + | Diagnosis | + + | Left leg weakness | + + | Other musculoskeletal symptoms referable to limbs | + + | Paresthesias/numbness | + + | Disturbance of skin sensation | + +
--- OUTSIDE RECORDS SUMMARY | ~2018-04-17 | XMS | Encounter Summary ---
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 | [place] | | | | | Procedures | [place], | [address] | | | | | ECHO | [place] [address] | Phone: | | | | | Complete [place] | Phone: | [phone] | | | | | ECHO HEART | [phone] | Fax: | | | | | [facility],[place] | Fax: | [phone] | | | | | MPLETE W | [phone] | | | | | | DOPPLER [...] | Atherosclero | [address] | [address] | | | | | tic heart | [address] | [address] | | | | | disease of | [place], | [place], | | | | | [place] | [place] [address] | [place] [address] | | | | | coronary | Phone: | Phone: | | | | | artery | [phone] | [phone] | | | | | without | Fax: | Fax: | | | | | angina | [phone] | [phone] | | | | | pectoris ST [...] + + | 03/18/ | Office | [facility] | Lauren Figueroa, | Implantable | | 2018 | Visit | CARDIOLOGY [address] | defibrillator | | | | [address] [place], | [place], | reprogramming/check | | | | [place] [address] | [place] [address] | (Primary Dx); TRAUMA PROGRAM MANAGER-D | | | | [phone] | [phone] | (AICD) [employer] | | | | | | 10/16/17 [facility]; | | | | | | Ischemic [...] of lisinopril Where to go for labs: [facility]- [address] [facility] Echo: Date: Check-In Time: Where to Check [...] thrombus, recent status post stents to , TRAUMA PROGRAM MANAGER-D placement in [facility] on 10/17/2017. He is being [...] has been having problems [facility], but relates it to the hot weather. Patient has no complaints of chest pain or chest dis comfort both at rest and on exertion. There is no palpitation, dizziness or lightheadedness. Patient has no complaints of ankle or leg swelling. Patient can sleep on one pillow at [facility] without difficulty breathing. MEDICAL, SURGICAL, AND PERSONAL HISTORY Past Medical, Surgical, Family, and Social History are reviewed in EPIC. CURRENT PROBLEMS Patient Active Problem List Diagnosis Acute anterior wall SC Coronary 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 involving [place] coronary artery of [place] heart without angina pectoris Ischemic cardiomyopathy Pulmonary edema TRAUMA PROGRAM MANAGER-D (AICD) [employer] 10/16/17 [facility] Stecker Implantable defibrillator reprogramming/check H/O atrial flutter Tachycardia GERD (gastroesophageal reflux disease) PAD (peripheral 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) CURRENT MEDICATIONS Current Outpatient Prescriptions Medication Sig Dispense Refill aspirin 81 MG tablet Take 81 mg by mouth Daily. atorvaSTATin (LIPITOR) 80 MG tablet Take 1 tablet by mouth nightly. 30 tablet 5 Cholecalciferol (VITAMIN D-3) 54406 units CAPS Take by mouth Once a [...] reviewed during visit today primarily from [facility]: LIPID Lab Results Component Value Date LDLEX [...] (dopa mine, norepinephrine). [facility] and [facility] were on divert. Patient wasn't transferred to [facility]. B. Echocardiogram 03/17/2017 shows LV ejection fraction is severely de creased, visually estimated left ventricular ejection fraction is 20 - 25%, left ventricular systolic thickening is segmentally abnormal,mildly reduced RV systolic function. Normal R V size, no significant valvular abnormalities seen, compared to the most recent exam dated, 03/15/2017, there is no significant changes C. [facility] to follow up closely with a local skoog machine operator in [place] . He wias dischargeed with a LifeVest [...] we will tr ansfer the patient to [facility] for consideration of urgent coronary [...] He is in a class II of [place] [employer] functional class. There is no [...] myocardium in these regions. C. S/P [employer] TRAUMA PROGRAM MANAGER-D 2-9-18 Dr Darby, [facility]. Ice interrogation today shows one [...] was left that way from [facility]. Patient has had several GI [...] 8:01 Electronically signed by: Lauren Figueroa MD [facility] 03/18/2018 Portions of this chart may have been created with Heidi Shaulis voice recognition software. Occasi onal wrong-word or [...] Cardiac | Lauren Figueroa, | | | 2018 | Visit | Rehabilitation | [address] | | | | | | [place], | | | | | | [place] [address] | | | | | | [phone] | | | | | | | | | | | | Maria Esther Fields RN | | +--------+---------+ + + + | 06/02/ | Office | Cardiology | Jenny, | | | 2017 | Visit | | ADARSH Santo [address] | | | | | | [address] [place], | | | | | | [place] [address] | | | | | | [phone] | | | | | | | [...] results section. 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 Procedure Type of Study TTE procedure: ECHO [...] Diastolic: 0.9 cm EF | | | Blzzsjldc37% EF Calculated: 32% Miscellaneous Aorta Aortic Root: [...] Diastolic: 0.9 cm | | | EF Vgoxcbydp92% | | | EF Calculated: 32% | [...] J | | | | Patient Number [id number] Date of Study 04/02/2018 | | | | Visit Number [id number] | | | | Referring Physician CAROLINA AGUILAR | | Number | | | | Date of 1955 Rn Lpn Lvn FRANNIE ISAACS [facility] | | | | Age 62 year(s) Interpreting CAROLINA AGUILAR | | Topstitcher Lockstitch LAUREN FIGUEROA | | | | | | 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 ICD | | | Evaluation Report March 18, 2018 Reason for evaluation: | | | routineIndication for ICD: ICD-10-CM ICD-9-CM 1. Implantable | | | defibrillator reprogramming/check Z45.02 V53.32 Device Interrogation | | | 2. TRAUMA PROGRAM MANAGER-D (AICD) [employer] [facility] V45.02 [facility] | | | Interrogation [...] cardiac defibrillator | + + | TRAUMA PROGRAM MANAGER-D (AICD) [employer] 10/16/17 [facility]by | + + | Ischemic cardiomyopathy | + + | Other specified forms of chronic ischemic heart disease | + + | Tachycardia | + + | Tachycardia, unspecified | + +
[2018-04-17] MEDS ORDERED: NORCO 5-325 TA1 EACH PO (06:47)
--- NOTE | 2018-04-17 19:48 | EKG ---
[facility] [address] [facility] [place] [address] Signed Atrial-sensed ventricular-paced rhythm with occasional premature ventricular complexes Abnormal ECG When compared with ECG of 12-JAN-2018 21:24, premature ventricular complexes are now present Vent. rate has increased BY 16 BPM Confirmed by KIMMIE GONZALEZ MD ([id number]) on 04/17/2018 7:47:32 PM Electronically Signed By: KIMMIE GONZALEZ MD 04/17/18 1948 PATIENT NAME: RON MCKEON Electrocardiogram DATE OF : 53 PHYSICIAN: KIMMIE GONZALEZ MD REPORT #: [id number] REPORT IS CONFIDENTIAL AND NOT TO BE RELEASED WITHOUT AUTHORIZATION
== END 2018-04-17 08:13 | disposition home or self-care (01) ==
LOC: ED 06:30
DX: R07.9 Chest pain, unspecified (principal); Z87.891 Personal history of nicotine dependence
CPT/HCPCS: 71045; 80053; 84484; 85025; 93005; 93010; 99285

== ENCOUNTER 2018-05-01 03:23 | Emergency (ER) | payer OTHER ==
[~2018-05-01] VITALS: Ht 175.3 cm; Wt 96.2 kg
--- OUTSIDE RECORDS SUMMARY | ~2018-05-01 | XMS | Clinical Summary ---
Demographics + + + | Address | [address] | | | [place] [address] | + + + | Home Phone | | + + + | Preferred Language | Unknown | + + + | Marital Status | | + + + | Sikhism Affiliation | Unknown | + + + | Race | Unknown | + + + | Ethnic Group | Unknown | + + + Author + + + | Author | [facility] | | | and [place] | + + + | Organization | [facility] | | | and [place] | + + + | Address | Unknown | + + + | Phone | Unavailable | + + + Support + + + + + | Name | Relationship | Address | Phone | + + + + + | MikeVenice | ECON | [address] | | | | | #[place] | | | | | [address] | | + + + + + Care Team Providers + +------+ + | Care Research Development Manager Name | Role | Phone | [...] | e | + + +--------+---------+------+------+-------+ | clopidogrel | Take 1 tablet by | 90 | 3 | 10/1 | | Activ | | (PLAVIX) 75 mg | mouth Daily. | tablet | | 7/20 | | e | | tablet | | | | 17 | | | + + +--------+---------+------+------+-------+ | | Take 1-2 tablets by | | 0 | 02/0 | | Activ | | HYDROcodone-acetamin | mouth every 4 hours | | | 2/20 | | e | | ophen (NORCO) 5-325 | as needed for Pain | | | 18 | | | | mg per tablet | (Pain). | | | | | | + + +--------+---------+------+------+-------+ | nitroglycerin | Place 1 tablet under | | 0 | 02/0 | | Activ | | (NITROSTAT) 0.4 mg | the tongue every 5 | | | 2/20 | | e | | SL tablet | minutes as needed | | | 18 | | | | | for Chest pain. | | | | | | + + +--------+---------+------+------+-------+ | gabapentin | Take 300 mg by mouth | | | | | Activ | | (NEURONTIN) 300 mg | 3 times daily. | | | | | e | | capsule | | | | | | | + + +--------+---------+------+------+-------+ | raNITIdine | Take 300 mg by mouth | | | | | Activ | | (ZANTAC) 300 MG | every evening. | | | | | e | | capsule | | | | | | | + + +--------+---------+------+------+-------+ | Cholecalciferol | Take by mouth Once | | | | | Activ | | (VITAMIN D-3) [address] | a week. | | | | [...] | | | + + +--------+---------+------+------+-------+ | pantoprazole | Take 40 mg by mouth | | | | | Activ | | (PROTONIX) 40 mg | 2 times daily. | | | | | e | | tablet | | | | | | | + + +--------+---------+------+------+-------+ | furosemide (LASIX) | Take 1 tablet by | 30 | 4 | 05/0 | | Activ | | 20 mg tablet | mouth Daily. | tablet | | 9/20 | | e | | | | | | 18 | | | + + +--------+---------+------+------+-------+ | metoprolol | TAKE ONE TABLET BY | 90 | 3 | 06/2 | | Activ | | succinate | MOUTH EVERY DAY | tablet | | 20 | | e | | (TOPROL-XL) 25 mg 24 | | | | 18 | | | | hr tablet | | | | | | | + + +--------+---------+------+------+-------+ | | Take 1 tablet by | 60 | 5 | 08/0 | | Activ | | sacubitril-valsartan | mouth 2 times daily. | tablet | | /20 | | e | | (ENTRESTO) 49-51 mg | | | | 18 | | | | per tablet | | | | | | | + + +--------+---------+------+------+-------+ | pantoprazole | TAKE ONE TABLET BY | 60 | 5 | 08/2 | | Activ | | (PROTONIX) 40 mg | MOUTH TWICE A DAY | tablet | | /20 | | e | | tablet | BEFORE MEALS. | | | 18 | | | + + +--------+---------+------+------+-------+ | atorvaSTATin | TAKE ONE TABLET BY | 30 | 5 | 08/2 | | Activ | | (LIPITOR) 80 MG | MOUTH EVERY DAY IN | tablet | | 2/20 | | e | | tablet | THE EVENING | | | 18 | | | + + +--------+---------+------+------+-------+ | atorvaSTATin | Take 1 tablet by | 30 | 5 | 03/0 | 08/2 | Disco | | (LIPITOR) 80 MG | mouth nightly. | tablet | | 6/20 | 2/20 | ntinu | | tablet | | | | 18 | 18 | ed | + + +--------+---------+------+------+-------+ | lisinopril | Take 1 tablet by | 60 | 5 | 07/1 | 08/0 | Disco | | (PRINIVIL, ZESTRIL) | mouth 2 times daily. 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 | + + + + + | SILK CONDITIONER-D (AICD) Medtronic 10/16/17 EULOGIO Darby | 10/19/2017 | + + + + + | Overview: Formatting of this note may be different from the | | original. MODEL NAME MODEL# SERIAL# DATE IMPLANTED GENERATOR | | Medtronic [id number] 10/16/17 RV LEAD Medtronic [id number] 62 | | [id number] 10/16/17 A LEAD Medtronic [id number] [id number] 10/16/17 | | Coronary Sinus LEAD Medtronic 4598 88 [id number] 10/16/17 | | Indication: ischemic cardiomyopathy with reduced EF 30-35% | |Coronary Sinus LEAD Medtronic 4598 88 [id number] 10/16/17 | |Indication: ischemic cardiomyopathy with reduced EF 30-35% | + + + + + | Implantable defibrillator reprogramming/check | 10/19/2017 | + + + | H/O atrial flutter | 10/19/2017 | + + + | Chronic systolic congestive heart failure (HCC) | 10/17/2017 | + + + | Paroxysmal atrial flutter (HCC) | 10/12/2017 | + + + | Pulmonary edema | 10/03/2017 | + + + | Ischemic cardiomyopathy | 05/26/2017 | + + + + + | Overview: S/P Medtronic SILK CONDITIONER-D 10-16-17 Dr Darby, [facility] Scan | | 10/13/17 shows No [...] | ventricular systolic function continued to deteriorate. | + + + + + | Coronary 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 involving [place] coronary artery of | 04/06/2017 | | [place] heart without angina pectoris | | + + + + + | Overview: Cardiac Cath ordered by Arya Christian 10/15/17 | | shows successful percutaneous coronary continue aggressive | | cardiac risk factor management , intervention to the ostial left | | circumflex with one 3.0 x 18 mm resolute oseas drug - eluting | | stent , successful percutaneous coronary transluminal | | angioplasty of the distal left main extending into the left | | anterior descending coronary artery with a final kissing balloon | | inflation with a 3.5 mm noncompliant and 2.5 mm complaint | | balloon, recommendations ; continue clopidogrel 75 mg daily for | | at least 12 months , therapy given bifurcation and left main | | stenting with multiple stent layers if tolerating , continue with | | Asprin 81 mg daily indefinitely , continue aggressive cardiac | | risk management , optimal medical care for ischemic | | cardiomyopathy Cardiac Cath 10/04/17 shows Systemic hypotension, | | upper normal left ventricular end-diastolic pressure, severe | | in-stent stenosis of left main to ostial LAD stent, severe | | in-stent stenosis ostial proximal left circumflex stent, mild to | | moderate RCA disease, ANNA grade 1 flow to distal LAD Delmer Zaragoza | | Radha Gomez., F.A.C.C.Echocardiogram 06/04/17 shows Mild left | | atrial dilatation, Normal left ventricular size. There is a mild | | hypokinesis of the anteriorwall. Overall, left ventricular | | systolic function is low-normal. LVEF is 50-55%,Normal valvular | | structure,Mild pulmonary hypertension with a peak systolic | | pressure 40-45 mmHg,Normal IVC with normal respiratory | | collapse,When compared to echocardiography on 05/07/17, left | | ventricular systolic function is significantly improved and now | | normalized. Echocardiogram 05/07/17 shows, Mild left atrial | | dilatation, Normal left ventricular size. There is a segmental | | wall motionabnormality with thinning and severe hypokinesis of | | the entire anterior and anteroseptal region. Overall, left | | ventricular systolic function ismoderately decreased. LVEF is | | 35-40%, Grade 1 left ventricular diastolic dysfunction,Mild | | mitral valve agitation, Normal right-sided pressure, Normal IVC | | with normal respiratory collapse. | + + + + + | Acute anterior wall MS ([facility]) | 04/03/2017 | + + + + [...] hypertension | 03/15/2009 | + + + | Benign prostatic hyperplasia [...] with single segment disease. | + + Encounters +--------+ + + + + | Date | Type | Specialty | Care Team | Description | +--------+ + + + + | 04/28/ | Refill | | Jenny, | Medication Refill | | 2017 | | | ADARSH Santo | | +--------+ + + + + | 04/27/ | Office | | Lauren Figueroa, | Coronary artery | | 2017 | Visit | | MD | disease involving | | | | | | [place] coronary | | | | | | artery of [place] | | | | | | heart without angina | | | | | | pectoris (Primary | | | | | | Dx) | +--------+ + + + + | 04/27/ | Telephone | | Lauren Figueroa, | Blood Pressure | | 2017 | | | MD | | +--------+ + + + + | 04/26/ | Abstract | | Jenny, | | | 2017 | | | ADARSH Santo | | +--------+ + + + + | 08/16/ | Office | | Lauren Figueroa, | Chronic systolic | | 2018 | Visit | | Maria Esther Alberto, | congestive heart | | | | | RN | failure (HCC) | | | | | | (Primary Dx); | | | | | | Chronic systolic | | | | | | heart failure (HCC) | +--------+ + + + + | 04/22/ | Abstract | | Lauren Figueroa, | | | 2017 | | | | | +--------+ + + + + | 04/14/ | Office | | Sofie Sneed MD | LOUISA (obstructive | | 2017 | Visit | | | sleep apnea) | | | | | | (Primary Dx) | +--------+ + + + + | 04/09/ | Office | | Lauren Figueroa, | Coronary artery | | 2017 | Visit | | | disease involving | | | | | | [place] coronary | | | | | | artery of [place] | | | | | | heart without angina | | | | | | pectoris (Primary | | | | | | Dx); Ischemic | | | | | | cardiomyopathy; | | | | | | Heart failure, | | | | | | unspecified HF | | | | | | chronicity, | | | | | | unspecified heart | | | | | | failure type (HCC) | +--------+ + + + + | 04/06/ | Telephone | | Lauren Figueroa, | Blood Pressure | | 2017 | | | MD | | +--------+ + + + + | 04/02/ | Hospital | | Lauren Figueroa, | Ischemic | | 2018 | Encounter | | MD Tena, | cardiomyopathy | | | | | Clarita Cheema, | | | | | | Technologist | | +--------+ + + + + | 03/30/ | Abstract | | Lauren Figueroa, | | | 2018 | | | MD | | +--------+ + + + + | 03/18/ | Office | | Lauren Figueroa, | Implantable | | 2017 | Visit | | | defibrillator | | | | | | reprogramming/check | | | | | | (Primary Dx); SILK CONDITIONER-D | | | | | | (AICD) Medtronic | | | | | | 10/16/17 EULOGIO Darby; | | | | | | Ischemic | | | | | | cardiomyopathy; | | | | | | Tachycardia | +--------+ + + + + | 03/03/ | Hospital | | Sofie Sneed MD | Sleep apnea, | | 2017 - | Encounter | | | unspecified type | | | | | | | | 03/04/ | | | | | | 2017 | | | | | +--------+ + + + + | 02/25/ | Refill | | Jenny, | Medication Refill | | 2017 | | | ADARSH Santo | | +--------+ + + + + | 02/24/ | Procedure | | Prosper Esteves | Left leg weakness; | | 2017 | visit | Arina Isabel MD | Paresthesias/numbnes | | | | | | s | +--------+ + + + + | 02/08/ | Office | | Sofie Sneed MD | Sleep apnea, | | 2017 | Visit | | | unspecified type | | | | | | (Primary Dx) | +--------+ + + + + | 02/03/ | Telephone | | Jenny | Blood Pressure | | 2017 | | | ADARSH Santo | | +--------+ + + + + from [...] + | Blood Pressure | 110/70 | 04/14/2018809 PDT | + + + + | Pulse | 81 | 04/14/2018809 PDT | + + + + | Temperature | 36 C (96.8 F) | 10/10/2017718 PST | + + + + | Respiratory Rate | 16 | 04/14/2018809 PDT | + + + + | Oxygen Saturation | 97% | 04/14/2018809 PDT | + + + + | Inhaled Oxygen | - | - | | Concentration | | | + + + + | Weight | 100.6 kg (221 lb | 04/14/2018809 PDT | | | 12.5 oz) | | + + + + | Height | 177.8 cm (5' 10") | 04/09/2018805 PDT | + + + + | Body Mass Index | 31.82 | 04/14/2018809 PDT | + + + + Plan of Treatment +--------+ + + + + | Date | Type | Specialty | Care Team | Description | +--------+ + + + + | 05/04/ | Office | | Lauren Figueroa, | | | 2017 | Visit | | [address] | | | | | | [place], | | | | | | [place] [address] | | | | | | [phone] | | | | | | | | +--------+ + + + + | 05/24/ | Appointment | | Sofie Sneed MD | | | 2017 | | | [address] | | | | | | [place] | | | | | | [address] | | | | | | | | +--------+ + + + + | 06/02/ | Office | | Jenny, | | | 2017 | Visit | | ADARSH Santo [address] | | | | | | [place], | | | | | | [place] [address] | | | | | | [phone] | | | | | | | [...] + + + | Vaccine: Influenza | | | | | (#1) | 8 | | | + + + + [...] / Lot | + +--------+--------+ +--------+--------+--------+ | Digital Content Manager-D MedtronicImplanted: | Implan | | MEDTRONIC - [...] N/A: | ISAACS | | 12/29/ | [id number] | | Eluting Coronary Stent System | | [place] | DIAGNOSTICS | | 2019 | 0-18 / | | Implanted: Qty: 1 on | | ry | - DAINA | | | | | 03/15/2017 by Monse Ross, | | | | | | /[id number] | | MD | | | | | | 60 | + +--------+--------+ +--------+--------+--------+ | Xience Alpine Everolimus | Stent | N/A: | ISAACS | | 11/03/ | [id number] | | Eluting Coronary Stent System | | [place] | DIAGNOSTICS | | 2019 | 0- / | | Implanted: Qty: 1 on | | ry | - DAINA | | | | | 03/15/2017 by Monse Ross, | | | | | | /[id number] | | MD | | | | | | 40 | + +--------+--------+ +--------+--------+--------+ Procedures + +--------+ + + + | Procedure Name | Priori | Date/Time | Associated Diagnosis | Comments | | | ty | | | | + +--------+ + + + | CBC WITH | Routin | 04/22/2018 | | Results for this | | DIFFERENTIAL | e | 0000 PDT | | procedure are in the | | | | | | results section. | + +--------+ + + + | CMPI | Routin | 04/22/2018 | | Results for this | | | e | 0000 PDT | | procedure are in the | | | | | | results section. | + +--------+ + + + | HEMOGLOBIN A1C | Routin | 04/22/2018 | | Results for this | | | e | 0000 PDT | | procedure are in the | | | | | | results section. | + +--------+ + + + | EXTERNAL LAB: KHOI | Routin | 04/22/2018 | | Results for this | | | e | 0000 PDT | | procedure are in the | | | | | | results section. | + +--------+ + + + | EXTERNAL LAB: DONTE | Routin | 04/22/2018 | | Results for this | | | e | 0000 PDT | | procedure are in the | | | | | | results section. | + +--------+ + + + | EXTERNAL LAB: | Routin | 04/22/2018 | | Results for this | | GLUCOSE | e | 0000 PDT | | procedure are in the | | | | | | results section. | + +--------+ + + + | EXTERNAL LAB: ALT | Routin | 04/22/2018 | | Results for this | | | e | 0000 PDT | | procedure are in the | | | | | | results section. | + +--------+ + + + | EXTERNAL LAB: AST | Routin | 04/22/2018 | | Results for this | | | e | 0000 PDT | | procedure are in the | | | | | | results section. | + +--------+ + + + | EXTERNAL LAB: | Routin | 04/22/2018 | | Results for this | | ALKALINE PHOSPHATASE | e | 0000 PDT | | procedure are in the | | | | | | results section. | + +--------+ + + + | EXTERNAL LAB: | Routin | 04/22/2018 | | Results for this | | BILIRUBIN, TOTAL | e | 0000 PDT | | procedure are in the | | | | | | results section. | + +--------+ + + + | EXTERNAL LAB: | Routin | 04/22/2018 | | Results for this | | ALBUMIN | e | 0000 PDT | | procedure are in the | | | | | | results section. | + +--------+ + + + | EXTERNAL LAB: | Routin | 04/22/2018 | | Results for this | | PROTEIN, TOTAL | e | 0000 PDT | | procedure are in the | | | | | | results section. | + +--------+ + + + | EXTERNAL LAB: | Routin | 04/22/2018 | | Results for this | | MAGNESIUM | e | 0000 PDT | | procedure are in the | | | | | | results section. | + +--------+ + + + | EXTERNAL LAB: | Routin | 04/22/2018 | | Results for this | | CALCIUM | e | 0000 PDT | | procedure are in the | | | | | | results section. | + +--------+ + + + | EXTERNAL LAB: CARBON | Routin | 04/22/2018 | | Results for this | | DIOXIDE | e | 0000 PDT | | procedure are in the | | | | | | results section. | + +--------+ + + + | EXTERNAL LAB: | Routin | 04/22/2018 | | Results for this | | CHLORIDE | e | 0000 PDT | | procedure are in the | | | | | | results section. | + +--------+ + + + | EXTERNAL LAB: | Routin | 04/22/2018 | | Results for this | | POTASSIUM | e | 0000 PDT | | procedure are in the | | | | | | results section. | + +--------+ + + + | EXTERNAL LAB: SODIUM | Routin | 04/22/2018 | | Results for this | | | e | 0000 PDT | | procedure are in the | | | | | | results section. | + +--------+ + + + | EXTERNAL LAB: KHOI | Routin | 04/22/2018 | | Results for this | | | e | 0000 PDT | | procedure are in the | | | | | | results section. | + +--------+ + + + | EXTERNAL LAB: WILFRED | Routin | 04/22/2018 | | Results for this | | | e | 0000 PDT | | procedure are in the | | | | | | results section. | + +--------+ + + + | EXTERNAL LAB: | Routin | 04/22/2018 | | Results for this | | CREATININE | e | 0000 PDT | | procedure are in the | | | | | | results section. | + +--------+ + + + | BASIC METABOLIC | Routin | 04/20/2018 | | Results for this | | PANEL | e | 0000 PDT | | procedure are in the | | | | | | results section. | + +--------+ + + + | EXTERNAL LAB: | Routin | 04/20/2018 | | Results for this | | GLUCOSE | e | 0000 PDT | | procedure are in the | | | | | | results section. | + +--------+ + + + | EXTERNAL LAB: | Routin | 04/20/2018 | | Results for this | | CALCIUM | e | 0000 PDT | | procedure are in the | | | | | | results section. | + +--------+ + + + | EXTERNAL LAB: CARBON | Routin | 04/20/2018 | | Results for this | | DIOXIDE | e | 0000 PDT | | procedure are in the | | | | | | results section. | + +--------+ + + + | EXTERNAL LAB: | Routin | 04/20/2018 | | Results for this | | CHLORIDE | e | 0000 PDT | | procedure are in the | | | | | | results section. | + +--------+ + + + | EXTERNAL LAB: | Routin | 04/20/2018 | | Results for this | | POTASSIUM | e | 0000 PDT | | procedure are in the | | | | | | results section. | + +--------+ + + + | EXTERNAL LAB: SODIUM | Routin | 04/20/2018 | | Results for this | | | e | 0000 PDT | | procedure are in the | | | | | | results section. | + +--------+ + + + | EXTERNAL LAB: EGFR | Routin | 04/20/2018 | | Results for this | | | e | 0000 PDT | | procedure are in the | | | | | | results section. | + +--------+ + + + | EXTERNAL LAB: | Routin | 04/20/2018 | | Results for this | | CREATININE | e | 0000 PDT | | procedure are in the | | | | | | results section. | + +--------+ + + + | ECHO COMPLETE | Routin | 04/02/2018 | Ischemic | Results for this | | | e | 0900 PDT | cardiomyopathy | procedure are in the | | | | | | results section. | + +--------+ + + + | LABS - EXTERNAL SCAN | | 03/26/2018 | | Results for this | | | | 0000 PDT | | procedure are in the | | | | | | results section. | + +--------+ + + + | BASIC METABOLIC | Routin | 03/26/2018 | | Results for this | | PANEL | e | 0000 PDT | | procedure are in the | | | | | | results section. | + +--------+ + + + | EXTERNAL LAB: BUN | Routin | 03/26/2018 | | Results for this | | | e | 0000 PDT | | procedure are in the | | | | | | results section. | + +--------+ + + + | EXTERNAL LAB: | Routin | 03/26/2018 | | Results for this | | GLUCOSE | e | 0000 PDT | | procedure are in the | | | | | | results section. | + +--------+ + + + | EXTERNAL LAB: | Routin | 03/26/2018 | | Results for this | | CALCIUM | e | 0000 PDT | | procedure are in the | | | | | | results section. | + +--------+ + + + | EXTERNAL LAB: CARBON | Routin | 03/26/2018 | | Results for this | | DIOXIDE | e | 0000 PDT | | procedure are in the | | | | | | results section. | + +--------+ + + + | EXTERNAL LAB: | Routin | 03/26/2018 | | Results for this | | CHLORIDE | e | 0000 PDT | | procedure are in the | | | | | | results section. | + +--------+ + + + | EXTERNAL LAB: | Routin | 03/26/2018 | | Results for this | | POTASSIUM | e | 0000 PDT | | procedure are in the | | | | | | results section. | + +--------+ + + + | EXTERNAL LAB: SODIUM | Routin | 03/26/2018 | | Results for this | | | e | 0000 PDT | | procedure are in the | | | | | | results section. | + +--------+ + + + | EXTERNAL LAB: EGFR | Routin | 03/26/2018 | | Results for this | | | e | 0000 PDT | | procedure are in the | | | | | | results section. | + +--------+ + + + | EXTERNAL LAB: | Routin | 03/26/2018 | | Results for this | | CREATININE | e | 0000 PDT | | procedure are in the | | | | | | results section. | + +--------+ + + + | DEVICE INTERROGATION | Routin | 03/18/2018 | Implantable | Results for this | | | e | 0800 PDT | defibrillator | procedure are in the | | | | | reprogramming/check | results section. | | | | | SILK CONDITIONER-D (AICD) | | | | | | Medtronic 2/9/18 | | | | | | MIGUELMENDY Raulitogideon | | | | | | Ischemic | | | | | | cardiomyopathy | | | | | | Tachycardia | | + +--------+ + + + | SLEEP STUDY | Routin | 03/07/2018 | | Results for this | | DIAGNOSTIC ONLY NO | e | 1635 PDT | | procedure are in the | | PAP | | | | results section. | + +--------+ + + + from Last 3 Months Results External Lab: DONTE (04/22/2018)Only the most recent of 2 results within the time period is i ncluded. + +-------+ + + | Component | Value | Ref Range | Performed At | + +-------+ + + | DONTE, External | 19 | 7 - 23 | EXTERNAL LAB | + +-------+ + + + +---------+ + + | Performing | Address | City/State/Zipcode | Phone Number | | Organization | | | | + +---------+ + + | EXTERNAL LAB | | | | + +---------+ + + External Lab: Glucose (04/22/2018)Only the most recent of 3 results within the time period is included. + +---------+ + + | Component | Value | Ref Range | Performed At | + +---------+ + + | Glucose, External | 119 (A) | 71 - 109 | EXTERNAL LAB | + +---------+ + + + +---------+ + + | Performing | Address | City/State/Zipcode | Phone Number | | Organization | | | | + +---------+ + + | EXTERNAL LAB | | | | + +---------+ + + External Lab: ALT (04/22/2018) + +-------+ + + | Component | Value | Ref Range | Performed At | + +-------+ + + | ALT, External | 21 | 9 - 57 | EXTERNAL LAB | + +-------+ + + + +---------+ + + | Performing | Address | City/State/Zipcode | Phone Number | | Organization | | | | + +---------+ + + | EXTERNAL LAB | | | | + +---------+ + + External Lab: AST (04/22/2018) + +-------+ + + | Component | Value | Ref Range | Performed At | + +-------+ + + | AST, External | 15 | 14 - 44 | EXTERNAL LAB | + +-------+ + + + +---------+ + + | Performing | Address | City/State/Zipcode | Phone Number | | Organization | | | | + +---------+ + + | EXTERNAL LAB | | | | + +---------+ + + External Lab: Alkaline Phosphatase (04/22/2018) + +-------+ + + | Component | Value | Ref Range | Performed At | + +-------+ + + | ALP, External | 106 | 45 - 129 | EXTERNAL LAB | + +-------+ + + + +---------+ + + | Performing | Address | City/State/Zipcode | Phone Number | | Organization | | | | + +---------+ + + | EXTERNAL LAB | | | | + +---------+ + + External Lab: Bilirubin, Total (04/22/2018) + +-------+ + + | Component | Value | Ref Range | Performed At | + +-------+ + + | Bilirubin, Total, | 0.4 | 0.2 - 1.3 | EXTERNAL LAB | | External | | | | + +-------+ + + + +---------+ + + | Performing | Address | City/State/Zipcode | Phone Number | | Organization | | | | + +---------+ + + | EXTERNAL LAB | | | | + +---------+ + + External Lab: Albumin (04/22/2018) + +-------+ + + | Component | Value | Ref Range | Performed At | + +-------+ + + | Albumin, External | 4.2 | 3.5 - 5 | EXTERNAL LAB | + +-------+ + + + +---------+ + + | Performing | Address | City/State/Zipcode | Phone Number | | Organization | | | | + +---------+ + + | EXTERNAL LAB | | | | + +---------+ + + External Lab: Protein, Total (04/22/2018) + +-------+ + + | Component | Value | Ref Range | Performed At | + +-------+ + + | Protein, Total, | 7.1 | 6.5 - 8.2 | EXTERNAL LAB | | External | | | | + +-------+ + + + +---------+ + + | Performing | Address | City/State/Zipcode | Phone Number | | Organization | | | | + +---------+ + + | EXTERNAL LAB | | | | + +---------+ + + External Lab: Magnesium (04/22/2018) + +-------+ + + | Component | Value | Ref Range | Performed At | + +-------+ + + | Magnesium, External | 2.2 | 2 - 2.6 | EXTERNAL LAB | + +-------+ + + + +---------+ + + | Performing | Address | City/State/Zipcode | Phone Number | | Organization | | | | + +---------+ + + | EXTERNAL LAB | | | | + +---------+ + + External Lab: Calcium (04/22/2018)Only the most recent of 3 results within the time period is included. + +---------+ + + | Component | Value | Ref Range | Performed At | + +---------+ + + | Calcium, External | 8.3 (A) | 8.4 - 10.5 | EXTERNAL LAB | + +---------+ + + + +---------+ + + | Performing | Address | City/State/Zipcode | Phone Number | | Organization | | | | + +---------+ + + | EXTERNAL LAB | | | | + +---------+ + + External Lab: Carbon Dioxide (04/22/2018)Only the most recent of 3 results within the time period is included. + +-------+ + + | Component | Value | Ref Range | Performed At | + +-------+ + + | Carbon Dioxide, | 23 | 21 - 32 | EXTERNAL LAB | | External | | | | + +-------+ + + + +---------+ + + | Performing | Address | City/State/Zipcode | Phone Number | | Organization | | | | + +---------+ + + | EXTERNAL LAB | | | | + +---------+ + + External Lab: Chloride (04/22/2018)Only the most recent of 3 results within the time period is included. + +-------+ + + | Component | Value | Ref Range | Performed At | + +-------+ + + | Chloride, External | 105 | 98 - 107 | EXTERNAL LAB | + +-------+ + + + +---------+ + + | Performing | Address | City/State/Zipcode | Phone Number | | Organization | | | | + +---------+ + + | EXTERNAL LAB | | | | + +---------+ + + External Lab: Potassium (04/22/2018)Only the most recent of 3 results within the time perio d is included. + +-------+ + + | Component | Value | Ref Range | Performed At | + +-------+ + + | Potassium, External | 5.0 | 3.5 - 5.1 | EXTERNAL LAB | + +-------+ + + + +---------+ + + | Performing | Address | City/State/Zipcode | Phone Number | | Organization | | | | + +---------+ + + | EXTERNAL LAB | | | | + +---------+ + + External Lab: Sodium (04/22/2018)Only the most recent of 3 results within the time period i s included. + +-------+ + + | Component | Value | Ref Range | Performed At | + +-------+ + + | Sodium, External | 138 | 133 - 145 | EXTERNAL LAB | + +-------+ + + + +---------+ + + | Performing | Address | City/State/Zipcode | Phone Number | | Organization | | | | + +---------+ + + | EXTERNAL LAB | | | | + +---------+ + + External Lab: CBC (04/22/2018)Only the most recent of 2 results within the time period is i ncluded. + +---------+ + + | Component | Value | Ref Range | Performed At | + +---------+ + + | PLT, External | 171 | 150 - 400 | EXTERNAL LAB | + +---------+ + + | Neutrophils %, | 72.3 | 44 - 74 | EXTERNAL LAB | | External | | | | + +---------+ + + | Lymphocytes %, | 17.5 | 15 - 42 | EXTERNAL LAB | | External | | | | + +---------+ + + | Monocytes %, | 7.7 | 4 - 13 | EXTERNAL LAB | | External | | | | + +---------+ + + | Eosinophils %, | 1.8 | 0 - 7 | EXTERNAL LAB | | External | | | | + +---------+ + + | Neutrophils, | 7.3 (A) | 1.2 - 7 | EXTERNAL LAB | | Absolute, External | | | | + +---------+ + + | Lymphocytes, | 1.8 | 0.6 - 3.4 | EXTERNAL LAB | | Absolute, External | | | | + +---------+ + + | Monocytes, Absolute, | 0.8 | 0.2 - 1 | EXTERNAL LAB | | External | | | | + +---------+ + + | Eosinophils, | 0.2 | 0 - 0.5 | EXTERNAL LAB | | Absolute | | | | + +---------+ + + | Basophils, Absolute | 0.0 | 0 - 0.2 | EXTERNAL LAB | + +---------+ + + | RDW, External | 13.8 | 11.2 - 16.2 | EXTERNAL LAB | + +---------+ + + + +---------+ + + | Performing | Address | City/State/Zipcode | Phone Number | | Organization | | | | + +---------+ + + | EXTERNAL LAB | | | | + +---------+ + + External Lab: eGFR (04/22/2018)Only the most recent of 3 results within the time period is included. + + + + + | Component | Value | Ref Range | Performed At | + + + + + | eGFR, External | 36.0 (A) | 60 | EXTERNAL LAB | + + + + + + + | Specimen | + + | Blood | + + + +---------+ + + | Performing | Address | City/State/Zipcode | Phone Number | | Organization | | | | + +---------+ + + | EXTERNAL LAB | | | | + +---------+ + + External Lab: Creatinine (04/22/2018)Only the most recent of 3 results within the time maggy od is included. + +---------+ + + | Component | Value | Ref Range | Performed At | + +---------+ + + | Creatinine, External | 1.9 (A) | 0.8 - 1.5 | EXTERNAL LAB | + +---------+ + + + + | Specimen | + + | Blood | + + + +---------+ + + | Performing | Address | City/State/Zipcode | Phone Number | | Organization | | | | + +---------+ + + | EXTERNAL LAB | | | | + +---------+ + + CMP/ISTAT (04/22/2018) + +-------+ + + | Component | Value | Ref Range | Performed At | + +-------+ + + | Globulin | 2.9 | 2.3 - 3.5 | | + +-------+ + + + + | Specimen | + + | Blood | + + CBC with Differential (04/22/2018) + +-------+ + + | Component | Value | Ref Range | Performed At | + +-------+ + + | MCH | 30.2 | 27.0 - 31.0 pg | | + +-------+ + + | MCHC | 32.6 | 32.0 - 36.0 % | | + +-------+ + + | BASOPHILS % | 0.4 | 0.0 - 2.0 % | | + +-------+ + + + + | Specimen | + + | Blood | + + Hemoglobin A1C (04/22/2018) + +---------+ + + | Component | Value | Ref Range | Performed At | + +---------+ + + | Hemoglobin A1c | 6.0 (A) | 0.0 - 5.6 % | EXTERNAL LAB | + +---------+ + + + + | Specimen | + + | Blood | + + + +---------+ + + | Performing | Address | City/State/Zipcode | Phone Number | | Organization | | | | + +---------+ + + | EXTERNAL LAB | | | | + +---------+ + + Basic Metabolic Panel (04/20/2018)Only the most recent of 2 results within the time period is included. + +--------+ + + | Component | Value | Ref Range | Performed At | + +--------+ + + | ANION GAP | 23 (A) | 7 - 21 mmol/L | | + +--------+ + + | Urea Nitrogen | 24 (A) | 6 - 23 | | | Clearance | | | | + +--------+ + + | Bun/Creatinine | 14.0 | 6.0 - 28.6 | | + +--------+ + + + + | Specimen | + + | Blood | + + ECHO Complete (04/02/2018899) + +-------+ + + | Component | Value | Ref Range | Performed At | + +-------+ + + | LVEF-TTE | 32 | | [facility] | | TRANSTHORACIC ECHO | | | | + +-------+ + + + +---- + | Narrative | Per formed At | + +---- + | Transthoracic | [facility] | | Echocardiography Report (TTE) Demographics Patient Name | | | MIKE VELASQUEZ Room Number J Patient | | | Number [id number] Date of | | | Study 04/02/2018 Visit Number [id number] | | | Referring | | | Physician [place] AGUILAR Number Date of | | | 1955 | | | Jailer/Training Officer FRANNIE ISAACS LORENZO | | | Age 62 year(s) | | | Interpreting [place] | | | LAUREN | | | 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 Procedure dateDate: 04/02/2018Start: 08:05 AM Technical | | | Quality: Limited visualizationStudy Location: Echo LabIndications: | | | CARDIOMYOPATHY 425.4/ I42.9.Patient Status: RoutineHeight: 70 | | | inchesWeight: 218 poundsBSA: 2.17 m^2BMI: 31.28 kg/m^2Rhythm: Normal | | | Sinus Rhythm ConclusionsSummary1. Mild biatrial dilatation.2. Mild | | | left ventricular dilatation with mild eccentric left | | | ventricularhypertrophy. There is a segmental wall motion abnormality | | | with severehypokinesis of the entire anterior and anteroseptal region. | | | Overall, leftventricular systolic function is moderately decreased. | | | LVEF is 30-35%.3. Grade 1 left ventricular diastolic dysfunction.4. | | | Mild mitral valve regurgitation.5. Normal right-sided pressure.6. | | | Normal IVC with normal respiratory collapse.7. When compared to | | | echocardiogram on 11/25/17, left ventricular systolicfunction continued | | | to deteriorate. | | | Signature | | | | | | AM | | | -------- FindingsMitral ValveMitral valve appears structurally and | | | functionally normal.Mild mitral regurgitation.Aortic ValveAortic valve | | | and LVOT are structurally normal. Normal aortic valve flow bycolor | | | and Doppler imaging. No aortic valve regurgitation.Tricuspid | | | ValveStructurally normal tricuspid valve without significant stenosis | | | orregurgitation. Unable to accurately assess RV systolic pressures in | | | theabsence of significant tricuspid regurgitation.Pulmonic ValveNormal | | | pulmonic valve structure and function. Normal pulmonary valve andRVOT | | | flow by color and Doppler flow imaging.Left AtriumThe left atrium is | | | mildly dilated.Left VentricleMildly dilated left ventricle.Normal left | | | ventricular cavity size.Ejection fraction is visually estimated at | | | 30-35%.Impaired relaxation compatible with diastolic dysfunction | | | (reversed E/Aratio).Mild concentric left ventricular hypertrophy.There | | | is a segmental wall motion abnormalities with severe hypokinesis | | | ofthe entire anterior and anteroseptal region.Right AtriumMildly | | | enlarged right atrial size.Right VentricleNormal right ventricular | | | size.Right ventricle global systolic function is normal.TAPSE = 1.5 | | | cm.Pericardial EffusionNo evidence of pericardial effusion.Pleural | | | EffusionNo evidence of pleural effusion.MiscellaneousThe IVC is normal | | | in size and collapses with inspiration.Aortic root dimension within | | | normal limits. Valves Mitral Valve Tissue Doppler Septal e' | | | Velocity: 0.80 m/s Aortic Valve Structures Left Atrium LA A/P | | | Dimension: 5.1 cm LA | | | Volume: 49 ml LA Vol/BSA Index: 23 mL/m^2 Left Ventricle Diastolic | | | Dimension: 6.4 cm Septum Diastolic: 1 cm PW Diastolic: 0.9 cm EF | | | Mezrjuggu69% EF Calculated: 32% Miscellaneous Aorta Aortic Root: | | | 3.4 cm | | |Aortic Valve | | |Aortic valve and LVOT are structurally normal. Normal aortic valve flow by | | |color and Doppler imaging. No aortic valve regurgitation. | | |Tricuspid Valve | | |Structurally normal tricuspid valve without significant stenosis or | | |regurgitation. Unable to accurately assess RV systolic pressures in the | | |absence of significant tricuspid regurgitation. | | |Pulmonic Valve | | |Normal pulmonic valve structure and function. Normal pulmonary valve and | | |RVOT flow by color and Doppler flow imaging. | | |Left Atrium | | |The left atrium is mildly dilated. | | |Left Ventricle | | |Mildly dilated left ventricle. | | |Normal left ventricular cavity size. | | |Ejection fraction is visually estimated at 30-35%. | | |Impaired relaxation compatible with diastolic dysfunction (reversed E/A | | |ratio). | | |Mild concentric left ventricular hypertrophy. | | |There is a segmental wall motion abnormalities with severe hypokinesis of | | |the entire anterior and anteroseptal region. | | |Right Atrium | | |Mildly enlarged right atrial size. | | |Right Ventricle | | |Normal right ventricular size. | | |Right ventricle global systolic function is normal. | | |TAPSE = 1.5 cm. | | |Pericardial Effusion | | |No evidence of pericardial effusion. | | |Pleural Effusion | | |No evidence of pleural effusion. | | |Miscellaneous | | |The IVC is normal in size and collapses with inspiration. | | |Aortic root dimension within normal limits. | | | | | |Valves | | | | | | Mitral Valve | | | | | | Tissue Doppler | | | | | | Septal e' Velocity: 0.80 m/s | | | | | | Aortic Valve | | | | | |Structures | | | | | | Left Atrium | | | | | | LA A/P Dimension: 5.1 cm LA Volume: 49 ml | | | LA Vol/BSA Index: 23 mL/m^2 | | | | | | Left Ventricle | | | | | | Diastolic Dimension: 6.4 cm | | | Septum Diastolic: 1 cm | | | PW Diastolic: 0.9 cm | | | EF Ipgwjezmv52% | | | EF Calculated: 32% | | | | | | Miscellaneous | | | | | | Aorta | | | | | | Aortic Root: 3.4 cm | | | | | + +---- + + + | Procedure Note | + + | Clayton Cortes Results In 04/05/2018 1013 PDT Transthoracic Echocardiography Report (TTE) | | | | Demographics | | | | Patient Name MIKE VELASQUEZ Room Number | | J | | | | Patient Number [id number] Date of Study 04/02/2018 | | | | Visit Number [id number] | | | | Referring Physician CAR[place]INA AGUILAR | | Number | | | | Date of 1955 Jailer/Training Officer FRANNIE ISAACS [facility] | | | | Age 62 year(s) Interpreting CAR[place]INA AGUILAR | | 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 | | | | Procedure date | | Date: 04/02/2018Start: 08:05 AM | | | | Technical Quality: Limited visualizationStudy Location: Echo Lab | | Indications: CARDIOMYOPATHY 425.4/ I42.9. | | Patient Status: Routine | | Height: 70 inchesWeight: 218 poundsBSA: 2.17 m^2BMI: 31.28 kg/m^2 | | Rhythm: Normal Sinus Rhythm | | | | Conclusions | | Summary | | 1. Mild biatrial dilatation. | | 2. Mild left ventricular dilatation with mild eccentric left ventricular | | hypertrophy. There is a segmental wall motion abnormality with severe | | hypokinesis of the entire anterior and anteroseptal region. Overall, left | | ventricular systolic function is moderately decreased. LVEF is 30-35%. | | 3. Grade 1 left ventricular diastolic dysfunction. | | 4. Mild mitral valve regurgitation. | | 5. Normal right-sided pressure. | | 6. Normal IVC with normal respiratory collapse. | | 7. When compared to echocardiogram on 11/25/17, left ventricular systolic | | function continued to deteriorate. | | | | Signature | | | | Electronically signed by LAUREN FIGUEROA MD(Interpreting physician) on | | 04/05/2018 10:13 AM | | | | | | Findings | | Mitral Valve | | Mitral valve appears structurally and functionally normal. | | Mild mitral regurgitation. | | Aortic Valve | | Aortic valve and LVOT are structurally normal. Normal aortic valve flow by | | color and Doppler imaging. No aortic valve regurgitation. | | Tricuspid Valve | | Structurally normal tricuspid valve without significant stenosis or | | regurgitation. Unable to accurately assess RV systolic pressures in the | | absence of significant tricuspid regurgitation. | | Pulmonic Valve | | Normal pulmonic valve structure and function. Normal pulmonary valve and | | RVOT flow by color and Doppler flow imaging. | | Left Atrium | | The left atrium is mildly dilated. | | Left Ventricle | | Mildly dilated left ventricle. | | Normal left ventricular cavity size. | | Ejection fraction is visually estimated at 30-35%. | | Impaired relaxation compatible with diastolic dysfunction (reversed E/A | | ratio). | | Mild concentric left ventricular hypertrophy. | | There is a segmental wall motion abnormalities with severe hypokinesis of | | the entire anterior and anteroseptal region. | | Right Atrium | | Mildly enlarged right atrial size. | | Right Ventricle | | Normal right ventricular size. | | Right ventricle global systolic function is normal. | | TAPSE = 1.5 cm. | | Pericardial Effusion | | No evidence of pericardial effusion. | | Pleural Effusion | | No evidence of pleural effusion. | | Miscellaneous | | The IVC is normal in size and collapses with inspiration. | | Aortic root dimension within normal limits. | | | | Valves | | | | Mitral Valve | | | | Tissue Doppler | | | | Septal e' Velocity: 0.80 m/s | | | | Aortic Valve | | | | Structures | | | | Left Atrium | | | | LA A/P Dimension: 5.1 cm LA Volume: 49 ml | | LA Vol/BSA Index: 23 mL/m^2 | | | | Left Ventricle | | | | Diastolic Dimension: 6.4 cm | | Septum Diastolic: 1 cm | | PW Diastolic: 0.9 cm | | EF Cktccozkf40% | | EF Calculated: 32% | | | | Miscellaneous | | | | Aorta | | | | Aortic Root: 3.4 cm | + + + +---------+ + + | Performing | Address | City/State/Zipcode | Phone Number | | Organization | | | | + +---------+ + + | [facility] | | | | + +---------+ + + LABS - EXTERNAL SCAN (03/26/2018) + + + | Narrative | Performed At | + + + | Ordered by an | | | unspecified provider. | | + + + Device Interrogation (03/18/2018 0800) + + + | Narrative | Performed At | + + + | Lauren THOMPSON | | MD [place] 03/18/2018 9:26 PATIENT NAME: Ron Chaudhary | | | Mike : 1955: AGE: 62 y.o. ICD | | | Evaluation Report March 18, 2018 Reason for evaluation: | | | routineIndication for ICD: ICD-10-CM ICD-9-CM 1. Implantable | | | defibrillator reprogramming/check Z45.02 V53.32 Device Interrogation | | | 2. SILK CONDITIONER-D (AICD) Med[employer]onic 10/16/17 [facility] Stecker Z95.810 V45.02 Device | | | Interrogation 3. Ischemic cardiomyopathy I25.5 414.8 Device | | | Interrogation 4. Tachycardia R00.0 785.0 Device Interrogation | | | Patient was seated and reclined and device was interrogated. | | | Defibrillator parameters, battery status, percentages pacing and | | | significant arrhythmias were reviewed. Heart rate histograms were | | | assessed for adequate heart rate response and any alerts reviewed. | | | Appropriate lead impedance testing was performed. Pacing impedances | | | were reviewed for any significant changes. Sensing tests were | | | performed by decreasing LRL. Adequacy of pacing thresholds were tested | | | by increasing LRL for each lead and recorded for loss of capture. | | | Final outputs were assessed for adequate safety margins. Please see | | | the scanned [facility] report and device PDF for further details. Data | | | collected by Kelly Rodriguez RN Underlying rhythm: sinus rhythm 70 | | | beats.0 mode switch episodes accounting for 0% of the time. No | | | episodes. No tachycardia therapies recommended or delivered.PVC | | | singles 1.1/hour PVC runs | | | 2.7/hourBiventricular pacing 98.3%Histogram good. Battery longevity | | | 9.6 years.Normal and stable device function.Quarterly remote | | | monitoring. Device interrogation due in office in 12 months. | | |reviewed. Appropriate lead impedance testing was performed. | | |Pacing impedances were reviewed for any significant changes. | | |Sensing tests were performed by decreasing LRL. Adequacy of | | |pacing thresholds were tested by increasing LRL for each lead and | | |recorded for loss of capture. Final outputs were assessed for | | |adequate safety margins. | | | | | |Please see the scanned [facility] report and device PDF for further | | |details. Data collected by Kelly Rodriguez RN | | | | | |Underlying rhythm: sinus rhythm 70 beats. | | |0 mode switch episodes accounting for 0% of the time. | | |No episodes. No tachycardia therapies recommended or delivered. | | |PVC singles 1.1/hour | | |PVC runs 2.7/hour | | |Biventricular pacing 98.3% | | |Histogram good. Battery longevity 9.6 years. | | |Normal and stable device function. | | |Quarterly remote monitoring. | | |Device interrogation due in office in 12 months. | | + + + + +---------+ + + | Performing | Address | City/State/Zipcode | Phone Number | | Organization | | | | + +---------+ + + | [facility] | | | | + +---------+ + + Sleep study diagnostic only (no PAP) (03/07/2018 3325) + + + | Narrative | Performed At | + + + | Sofie Sneed, | | | 03/07/2018 16:57 [facility] | | | [place] [address] Polysomnogram | | | Report on Ron Mckeon performed on March 03 2800 PATIENT | | | IDENTIFICATION: Ron Mckeon IS a 62 y.o..-year-old male. | | | with a history of coronary 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 post recent anterior wall | | | MS, post PTCA and stents on 03/15/17, cardiac shock, recent status | | | post stents, cardiomyopathy, atrial flutter, GERD, chronic knee | | | pain, And neuropathy?, presenting for evaluation of sleep apnea. BMI: | | | 31.5 Technical Information: Please see technical data which is | | | attached. Definitions (The AASM Manual for the Scoring of Sleep and | | | Associated Events, Version 2.4; 2017): Apnea: There is a drop in the | | | peak signal excursion by 90% or greater of pre-event baseline using an | | | oronasal thermal sensor (diagnostic study), PAP device flow | | | (titration study), or an alternative apnea sensor (diagnostic study); | | | the duration of the 90% or greater drop in sensor signal is 10 seconds | | | or longer. Obstructive Apnea: Event associated with continued or | | | increased inspiratory effort throughout the entire period of absent | | | airflow. Central Apnea: Event associated with absent inspiratory | | | effort throughout the entire period of absent airflow. Mixed Apnea: | | | Event associated with absent inspiratory effort in the initial | | | portion of the event followed by resumption of inspiratory effort | | | during the second portion of the event. Hypopnea: Nasal pressure | | | excursion drop by 30% or more from baseline, lasting at lease 10 | | | seconds and 90% of the event's duration meets this amplitude criteria. | | | This is associated with a 4% or greater desaturation from | | | pre-baseline Respiratory Event Related Arousal: A sequence of breaths | | | lasting 10 seconds or longer characterized by increasing respiratory | | | effort or by flattening of the inspiratory portion of the nasal | | | pressure (diagnostic study) or PAP device flow (titration study) | | | waveform leading to arousal from sleep when the sequence of breaths | | | does not meet criteria for an apnea or hypopnea. REVELANT | | | MEDICATIONS: Tramadol, hydrocodonehypopnea acetaminophen, gabapentin. | | | SUBJECTIVE:The patient rated sleep quality during sleep study as | | | better. Packer Dried Beef note: patient tried medium dreamwear nasal mask and | | | medium airfit p10 nasal pillows and preferred nasal pillows. SLEEP | | | ARCHITECTURE AND EEG:? Total sleep time was 499 minutes. Sleep | | | efficiency was 80.7% and was decreased.? Sleep onset latency was 0.5 | | | minutes and was decreased.? REM latency was 187.5 minutes and was | | | increased.? Percent of time in stage N3 was 0%.? Percent of time in | | | stage REM was 0.9 % and was decreased.? Arousal Index for this | | | diagnostic study was 10.7/hour and waswithin normal limits, with 2.3 | | | respiratory arousals/hour and 8.4 spontaneous arousals/hour. | | | RESPIRATORY:? Respiratory disturbance index (RDI) was 7.5, consisting | | | of total 52 hypopneas, 4 obstructive apneas, 0 mixed apneas, and 6 | | | central apneas and 0 RERAs. AHI was 7.5 and mildly elevated.? Sleep | | | disordered breathing was worsened in supine position with supine | | | AHI of 13.4. Patient spent 41.3% of total sleep time in supine | | | position. Nonsupine AHI was 3.3. ? Sleep disordered breathing was | | | worsened in REM sleep with REM AHI of 40. Non-REM AHI was 7.2. ? | | | Mean SpO2 was 89 %, marilee SpO2 was 77%, and amount of total sleep time | | | spent below SpO2 of 89% was 187.7 minutes. 4% Oxygen Desaturation | | | Index (HOMERO) was 13.5 and was mildly elevated.? Snoring was moderate.? | | | ETCO2 was not elevated.? Fritz-Ulrich breathing was not observed. | | | LIMB MOVEMENTS:? Total sleep periodic limb movement index was 0 and | | | was not increased. EKG:Normal sinus rhythm was noted with mean heart | | | rate of 66, 62, 67 beats per minute in wake, non-REM, and REM sleep | | | respectively.. INTERPRETATION: - This polysomnography showed sleep | | | apnea which was obstructive in nature, and it was mild in frequency of | | | events, and mild in frequency of desaturations. Sleep apnea was | | | worsened in supine position and in stage R sleep. There was 41.3% | | | Supine sleep, but only 0.9% stage R sleep was captured. Mean SpO2 was | | | 89 %, marilee SpO2 was 77%, and amount of total sleep time spent below | | | SpO2 of 89% was 187.7 minutes. There were several numbers of | | | obstructive hypopnea is associated with a 3% oxygen saturation, and | | | amount the required 4% oxygen desaturation. However, there were | | | also periods of low SPO2 at 88-89% and absence of obvious obstructive | | | events. - Sleep efficiency was mildly decreased, and sleep was | | | minimally fragmented. - Excessive leg movements was not observed. | | | RECOMMENDATIONS:1. A separate PAP titration study. Otherwise, auto- | | | CPAP at 5-15 cm H2O can be started followed by an overnight oximetry | | | on CPAP and room air, and to proceed with a separate titration study | | | in case of residual hypoxemia.2. Weight management. Sofie Sneed MD | | | Portions of this chart may have been created with [employer]ATE voice | | | recognition software. Occasional wrong-word or | | | | | | sound-alike | | | substitutions may have occurred due to the inherent limitations of | | | voice recognition software. Please read the chart carefully and | | | recognize, using context, where these substitutions have occurred. | | |sleep time spent below SpO2 of 89% was 187.7 minutes. 4% Oxygen | | |Desaturation Index (HOMERO) was 13.5 and was mildly elevated. | | |? Snoring was moderate. | | |? ETCO2 was not elevated. | | |? Fritz-Ulrich breathing was not observed. | | | | | |LIMB MOVEMENTS: | | |? Total sleep periodic limb movement index was 0 and was not | | |increased. | | | | | | | | |EKG: | | |Normal sinus rhythm was noted with mean heart rate of 66, 62, 67 | | |beats per minute in wake, non-REM, and REM sleep respectively.. | | | | | |INTERPRETATION: | | | | | |- This polysomnography showed sleep apnea which was obstructive | | |in nature, and it was mild in frequency of events, and mild in | | |frequency of desaturations. Sleep apnea was worsened in supine | | |position and in stage R sleep. There was 41.3% Supine sleep, but | | |only 0.9% stage R sleep was captured. Mean SpO2 was 89 %, marilee | | |SpO2 was 77%, and amount of total sleep time spent below SpO2 of | | |89% was 187.7 minutes. There were several numbers of obstructive | | |hypopnea is associated with a 3% oxygen saturation, and amount | | |the required 4% oxygen desaturation. However, there were also | | |periods of low SPO2 at 88-89% and absence of obvious obstructive | | |events. | | | | | |- Sleep efficiency was mildly decreased, and sleep was minimally | | |fragmented. | | | | | |- Excessive leg movements was not observed. | | | | | |RECOMMENDATIONS: | | |1. A separate PAP titration study. Otherwise, auto- CPAP at 5-15 | | |cm H2O can be started followed by an overnight oximetry on CPAP | | |and room air, and to proceed with a separate titration study in | | |case of residual hypoxemia. | | |2. Weight management. | | | | | | | | |Sofie Sneed MD | | | | | |Portions of this chart may have been created with CLIPPATE voice | | |recognition software. Occasional wrong-word or sound-alike | | |substitutions may have occurred due to the inherent limitations | | |of voice recognition software. Please read the chart carefully | | |and recognize, using context, where these substitutions have | | |occurred. | | | | | + + + + + | Procedure Note | + + | Sofie Sneed MD - 03/07/2018 1635 PDT [facility] | | [place], [place] [address]Uqtmhtbacdjhw Report on Ron Chaudhary | | Mike performed on March 03 2800PATIENT IDENTIFICATION:Ron Mckeon IS a 62 | | y.o..-year-old male. with a history of coronary 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 post recent anterior wall | | [place], post PTCA and stents on 03/15/17, cardiac shock, recent status post stents, | | cardiomyopathy, atrial flutter, GERD, chronic knee pain, And neuropathy?, presenting | | for evaluation of sleep apnea. BMI: 31.5Technical Information: Please see technical data | | which is attached.Definitions (The AASM Manual for the Scoring of Sleep and Associated | | Events, Version 2.4; 2017): Apnea: There is a drop in the peak signal excursion by 90% | | or greater of pre-event baseline using an oronasal thermal sensor (diagnostic study), | | PAP device flow (titration study), or an alternative apnea sensor (diagnostic study); | | the duration of the 90% or greater drop in sensor signal is 10 seconds or longer. | | Obstructive Apnea: Event associated with continued or increased inspiratory effort | | throughout the entire period of absent airflow. Central Apnea: Event associated with | | absent inspiratory effort throughout the entire period of absent airflow. Mixed Apnea: | | Event associated with absent inspiratory effort in the initial portion of the event | | followed by resumption of inspiratory effort during the second portion of the event. | | Hypopnea: Nasal pressure excursion drop by 30% or more from baseline, lasting at lease | | 10 seconds and 90% of the event's duration meets this amplitude criteria. This is | | associated with a 4% or greater desaturation from pre-baseline Respiratory Event Related | | Arousal: A sequence of breaths lasting 10 seconds or longer characterized by increasing | | respiratory effort or by flattening of the inspiratory portion of the nasal pressure | | (diagnostic study) or PAP device flow (titration study) waveform leading to arousal from | | sleep when the sequence of breaths does not meet criteria for an apnea or hypopnea. | | REVELANT MEDICATIONS: Tramadol, hydrocodonehypopnea acetaminophen, | | gabapentin.SUBJECTIVE:The patient rated sleep quality during sleep study as better. | | Packer Dried Beef note: patient tried medium dreamwear nasal mask and medium airfit p10 nasal | | pillows and preferred nasal pillows. SLEEP ARCHITECTURE AND EEG:? Total sleep time was | | 499 minutes. Sleep efficiency was 80.7% and was decreased.? Sleep onset latency was 0.5 | | minutes and was decreased.? REM latency was 187.5 minutes and was increased.? Percent | | of time in stage N3 was 0%.? Percent of time in stage REM was 0.9 % and was decreased.? | | Arousal Index for this diagnostic study was 10.7/hour and waswithin normal limits, with | | 2.3 respiratory arousals/hour and 8.4 spontaneous arousals/hour. RESPIRATORY:? | | Respiratory disturbance index (RDI) was 7.5, consisting of total 52 hypopneas, 4 | | obstructive apneas, 0 mixed apneas, and 6 central apneas and 0 RERAs. AHI was 7.5 and | | mildly elevated.? Sleep disordered breathing was worsened in supine position with | | supine AHI of 13.4. Patient spent 41.3% of total sleep time in supine position. | | Nonsupine AHI was 3.3. ? Sleep disordered breathing was worsened in REM sleep with REM | | AHI of 40. Non-REM AHI was 7.2. ? Mean SpO2 was 89 %, marilee SpO2 was 77%, and amount of | | total sleep time spent below SpO2 of 89% was 187.7 minutes. 4% Oxygen Desaturation | | Index (HOMERO) was 13.5 and was mildly elevated.? Snoring was moderate.? ETCO2 was not | | elevated.? Fritz-Ulrich breathing was not observed. LIMB MOVEMENTS:? Total sleep | | periodic limb movement index was 0 and was not increased. EKG:Normal sinus rhythm was | | noted with mean heart rate of 66, 62, 67 beats per minute in wake, non-REM, and REM | | sleep respectively.. INTERPRETATION:- This polysomnography showed sleep apnea which was | | obstructive in nature, and it was mild in frequency of events, and mild in frequency of | | desaturations. Sleep apnea was worsened in supine position and in stage R sleep. There | | was 41.3% Supine sleep, but only 0.9% stage R sleep was captured. Mean SpO2 was 89 %, | | marilee SpO2 was 77%, and amount of total sleep time spent below SpO2 of 89% was 187.7 | | minutes. There were several numbers of obstructive hypopnea is associated with a 3% | | oxygen saturation, and amount the required 4% oxygen desaturation. However, there were | | also periods of low SPO2 at 88-89% and absence of obvious obstructive events.- Sleep | | efficiency was mildly decreased, and sleep was minimally fragmented. - Excessive leg | | movements was not observed.RECOMMENDATIONS:1. A separate PAP titration study. | | Otherwise, auto- CPAP at 5-15 cm H2O can be started followed by an overnight oximetry on | | CPAP and room air, and to proceed with a separate titration study in case of residual | | hypoxemia.2. Weight management. MITZY Salmonortions of this chart may have been | | created with CLIPPATE voice recognition software. Occasional wrong-word or | | | | sound-alike | | substitutions may have occurred due to the inherent limitations of voice recognition | | software. Please read the chart carefully and recognize, using context, where these | | substitutions have occurred. | |sleep. There was 41.3% Supine sleep, but only 0.9% stage R sleep was captured. Mean SpO2 wa s 89 %, marilee SpO2 was 77%, and amount of total sleep time spent below SpO2 of 89% was 187.7 minutes. There were several | |numbers of obstructive hypopnea is associated with a 3% oxygen saturation, and amount the r equired 4% oxygen desaturation. However, there were also periods of low SPO2 at 88-89% and absence of obvious obstructive events. | | | |- Sleep efficiency was mildly decreased, and sleep was minimally fragmented. | | | |- Excessive leg movements was not observed. | | | |RECOMMENDATIONS: | |1. A separate PAP titration study. Otherwise, auto- CPAP at 5-15 cm H2O can be started fol lowed by an overnight oximetry on CPAP and room air, and to proceed with a separate titratio n study in case of residual hypoxemia. | |2. Weight management. | | | | | |Sofie Sneed MD | | | |Portions of this chart may have been created with CLIPPATE voice recognition software. Occasi onal wrong-word or sound-alike substitutions may have occurred due to the inherent canseco itations of voice recognition software. | |Please read the chart carefully and recognize, using context, where these substitutions hav e occurred. | + + from Last 3 Months Insurance + +--------+ +--------+ +---------+ | Payer | Benefi | Subscriber | Type | Phone | Address | | | t Plan | ID | | | | | | / | | | | | | | Group | | | | | + +--------+ +--------+ +---------+ | [employer] | [employer] | [id number] | Medica | [phone] | | MEDICAID HMO | HEALTH | | id | [id number] | | | | [place]CD | | | | | | | [place] | | | | | + +--------+ +--------+ +---------+ | [employer] | [employer] | [id number] | Indemn | | | | | [...] | + +--------+ +--------+ + + | RNO MCKEON | Person | Self [birth year] Home: | [address] | | | al/Fam | | 1955 | [phone] | [address], | | | [place]wo | | | [address] | [place] [address] | + +--------+ +--------+ + +
--- OUTSIDE RECORDS SUMMARY | ~2018-05-01 | XMS | Encounter Summary ---
Demographics + + + | Address | [address] | | | [place] [address] | + + + | Home Phone | | + + + | Preferred Language | Unknown | + + + | Marital Status | | + + + | Yarsani Affiliation | Unknown | + + + | Race | Unknown | + + + | Ethnic Group | Unknown | + + + Author + + + | Author | [facility] | | | and [place] | + + + | Organization | [facility] | | | and [place] | + + + | Address | Unknown | + + + | Phone | Unavailable | + + + Support + + + + + | Name | Relationship | Address | Phone | + + + + + | [place] Will | ECON | [address] | | | | | #[place] | | | | | [address] | | + + + + + Care Team Providers + +------+ + | Care Lithographers Printer Name | Role | Phone | + +------+ + | Chato Matson MD | PCP | | + +------+ + Reason for Referral Diagnostic/Screening (Routine) +--------+--------+ + + + + | Status | Reason | Specialty | Diagnoses / | Referred By | Referred To | | | | | Procedures | Contact | Contact | +--------+--------+ + + + + | Closed | | Radiology | Diagnoses | [place], | [facility] | | | | | Ischemic | MD Lauren | [address] | | | | | cardiomyopat | [address] | [place], | | | | | hy | [address] | [place] | | | | | Procedures | [place], | [address] | | | | | ECHO | [place] [address] | Phone: | | | | | Complete [place] | Phone: | [phone] | | | | | ECHO HEART | [phone] | Fax: | | | | | [place] | Fax: | [phone] | | | | | [address] | [phone] | | | | | | [place] | | | | | | | ECHO HEART | | | | | | | [place] | | | | | | | MP[place], W/O | | | | | | | DOPPLER | | | +--------+--------+ + + + + Diagnostic/Screening (Routine) +--------+--------+ + + + + | Status | Reason | Specialty | Diagnoses / | Referred By | Referred To | | | | | Procedures | Contact | Contact | +--------+--------+ + + + + | Closed | | Radiology | Diagnoses | [place], | [facility] | | | | | Ischemic | MD Lauren | [address] | | | | | cardiomyopat | [address] | [place], | | | | | hy | [address] | [place] | | | | | Procedures | [place], | [address] | | | | | ECHO | [place] [address] | Phone: | | | | | Complete [place] | Phone: | [phone] | | | | | ECHO HEART | [phone] | Fax: | | | | | [place] | Fax: | [phone] | | | | | [address] | [phone] | | | | | | [place] | | | | | | | ECHO HEART | | | | | | | [place] | | | | | | | MPLETE, W/O | | | | | | | DOPPLER | | | +--------+--------+ + + + + Reason for Visit Diagnostic/Screening (Routine) +--------+--------+ + + + + | Status | Reason | Specialty | Diagnoses / | Referred By | Referred To | | | | | Procedures | Contact | Contact | +--------+--------+ + + + + | Closed | | Radiology | Diagnoses | [place], | [facility] | | | | | Ischemic | MD Lauren | [address] | | | | | cardiomyopat | [address] | [place], | | | | | hy | [address] | [place] | | | | | Procedures | [place], | [address] | | | | | ECHO | [place] [address] | Phone: | | | | | Complete [place] | Phone: | [phone] | | | | | ECHO HEART | [phone] | Fax: | | | | | [place] | Fax: | [phone] | | | | | [address] | [phone] | | | | | | [place] | | | | | | | ECHO HEART | | | | | | | [place] | | | | | | | MPLETE, W/O | | | | | | | DOPPLER | | | +--------+--------+ + + + + Encounter Details +--------+ + + + + | Date | Type | Department | Care Team | Description | +--------+ + + + + | 04/02/ | Hospital | [facility] | Lauren Figueroa, | Ischemic | | 2018 | Encounter | MED CTR ECHO [address] | cardiomyopathy | | | | [address] [place] | [address] [place], | | | | | [place] [address] | [place] [address] | | | | | [phone] | [phone] | | | | | | | | | | | | Clarita Tena | | | | | | A, Technologist | | +--------+ + + + [...] + + + as of this encounter Medications at Time of Discharge + + +--------+---------+ + + | Medication | Sig. | Disp. | Refills | Start | End Date | | | | | | Date | | + + +--------+---------+ + + | aspirin 81 MG | Take 81 mg by mouth | | | | | | tablet | Daily. | | | | | + + +--------+---------+ + + | Cholecalciferol | Take by mouth Once | | | | | | (VITAMIN D-3) 67395 | a week. | | | | | | units CAPS | | | | | | + + +--------+---------+ + + | clopidogrel | Take 1 tablet by | 90 | 3 | 06/23/20 | | | (PLAVIX) 75 mg | mouth Daily. | tablet | | 17 | | | tablet | | | | | | + + +--------+---------+ + + | furosemide (LASIX) | Take 1 tablet by | 30 | 4 | /05/27 | | | 20 mg tablet | mouth Daily. | tablet | | 18 | | + + +--------+---------+ + + | gabapentin | Take 300 mg by mouth | | | | | | (NEURONTIN) 300 mg | 3 times daily. | | | | | | capsule | | | | | | + + +--------+---------+ + + | | Take 1-2 tablets by | | 0 | 10/09/19 | | | HYDROcodone-acetamin | mouth every 4 hours | | | 18 | | | ophen (NORCO) 5-325 | as needed for Pain | | | | | | mg per tablet | (Pain). | | | | | + + +--------+---------+ + + | metFORMIN | Take 500 mg by mouth | | | | | | (GLUCOPHAGE) 500 mg | 2 times daily (with | | | | | | tablet | breakfast & | | | | | | | dinner). | | | | | + + +--------+---------+ + + | metoprolol | TAKE ONE TABLET BY | 90 | 3 | 02/26/20 | | | succinate | MOUTH EVERY DAY | tablet | | 18 | | | (TOPROL-XL) 25 mg 24 | | | | | | | hr tablet | | | | | | + + +--------+---------+ + + | nitroglycerin | Place 1 tablet under | | 0 | 10/09/19 | | | (NITROSTAT) 0.4 mg | the tongue every 5 | | | 18 | | | SL tablet | minutes as needed | | | | | | | for Chest pain. | | | | | + + +--------+---------+ + + | pantoprazole | Take 40 mg by mouth | | | | | | (PROTONIX) 40 mg | 2 times daily. | | | | | | tablet | | | | | | + + +--------+---------+ + + | raNITIdine | Take 300 mg by mouth | | | | | | (ZANTAC) 300 MG | every evening. | | | | | | capsule | | | | | | + + +--------+---------+ + + | traMADol (ULTRAM) | Take 50 mg by mouth | | | | | | 50 mg tablet | every 6 hours as | | | | | | | needed. | | | | | + + +--------+---------+ + + | atorvaSTATin | Take 1 tablet by | 30 | 5 | 11/11/19 | | | (LIPITOR) 80 MG | mouth nightly. | tablet | | 18 | 8 | | tablet | | | | | | + + +--------+---------+ + + | lisinopril | Take 1 tablet by | 60 | 5 | 03/18/20 | | | (PRINIVIL, ZESTRIL) | mouth 2 times daily. | tablet | | 18 | 8 | | 20 mg tablet | | | | | | + + +--------+---------+ + + as of this encounter Plan of Treatment +--------+ + + + + | Date | Type | Specialty | Care Team | Description | +--------+ + + + + | 05/04/ | Office | Cardiac | Lauren Figueroa, | | | 2017 | Visit | Rehabilitation | MD Javid Crespo | | | | | | [address] | | | | | | [place] [address] | | | | | | [phone] | | | | | | | | +--------+ + + + + | 05/24/ | Appointment | Sleep Medicine | Sofie Sneed MD | | | 2017 | | | [address] | | | | | | [place] | | | | | | [address] | | | | | | | | +--------+ + + + + | 06/02/ | Office | Cardiology | Jenny, | | | 2017 | Visit | | ADARSH Santo [address] | | | | | | [place], | | | | | | [place] [address] | | | | | | [phone] | | | | | | | [...] section. | + +--------+ + + + in this encounter Results ECHO Complete (04/02/2018 0900) + +-------+ + + | Component | [...] Number J Patient | | | Number [id number] Date of | | | Study 04/02/2018 Visit Number [id number] | | | Referring | | | Physician CAROLINA AGUILAR Number Date of | | | 1955 | | | Junior 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 FRANNIEAndree ISAACS [facility] | | | Age 62 year(s) | | | Interpreting CAROLINA | | | LAUREN | | | Supervisor Dumping LAUREN | | | CAR[place]INA, | | | | | | Gender Male Nurse | | | | | | Stress Endbander Procedure Type of Study TTE procedure: ECHO [...] Diastolic: 0.9 cm EF | | | Rzniqhnfi07% EF Calculated: 32% Miscellaneous Aorta Aortic Root: [...] Diastolic: 0.9 cm | | | EF Givsxyqwq86% | | | EF Calculated: 32% | | | | | | Miscellaneous | | | | | | Aorta | | | | | | Aortic Root: 3.4 cm | | | | | + +---- + + + | Procedure Note | + + | Sebastian, Rad Results In - 04/05/2018 1013 PDT Transthoracic Echocardiography Report (TTE) | | | | Demographics | | | | Patient Name MIKE VELASQUEZ [facility] Number | | J | | | | Patient Number [id number] Date of Study 04/02/2018 | | | | Visit Number [id number] | | | | Referring Physician CAROLINA AGUILAR | | Number | | | | Date of 1955 Junior 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 FRANNIE ISAACS [facility] | | | | Age 62 year(s) Interpreting CAROLINA AGUILAR | | Supervisor Dumping LAUREN FIGUEROA | | | | | | Gender Male Nurse | | | | Stress Endbander | | | | Procedure | | [...] PW Diastolic: 0.9 cm | | EF Qxklbjpec80% | | EF Calculated: 32% | | | | Miscellaneous | | | | Aorta | | | | Aortic Root: 3.4 cm | + + + +---------+ + + | Performing | Address | City/State/Zipcode | Phone Number | | Organization | | | | + +---------+ + + | [facility] | | | | + +---------+ + + in this encounter Visit Diagnoses + + | Diagnosis | + + | Ischemic cardiomyopathy | + + | Other specified forms of chronic ischemic heart disease | + +"
--- OUTSIDE RECORDS SUMMARY | ~2018-05-01 | XMS | Encounter Summary ---
Demographics + + + | Address | [address] | | | [place] [address] | + + + | Home Phone [...] + + | Author | [facility] | | | and [place] | + + + | Organization | [facility] | | | and [place] | + + + | Address | Unknown | + + + | Phone | Unavailable | + + + Support + + + + + | Name | Relationship | Address | Phone | + + + + + | [place] Will | ECON | [address] | | | | | #[place] | | | | | [address] | | + + + + + Care Team Providers + +------+ + | Care Real Estate Job Titles Name | Role | Phone | + +------+ + | Chato Matson MD | PCP | | + +------+ + Reason for Visit Evaluate & Treat (Routine) +--------+ + + [...] | apnea, | [address] | [address] | | | | | unspecified | [address] [place] | [place], | | | | | type | [place], [place] | [place] [address] | | | | | Procedures | [address] | Phone: | | | | | [place] POLYSOM | Phone: | [phone] | | | | | 6/>YRS SLEEP | [phone] | Fax: | | | | | W/CPAP 4/> | Fax: | [phone] | | | | | ADDL KATERINA | [phone] | | | | | | ATTND MA | | | | | | | POLYSOM | | | | | | | 6/>YRS SLEEP | | | | | | | 4/> ADDL | | | | | | | KATERINA ATTND | | | | | | | S/N (DOS | | | | | | | 03/22/18) | | | +--------+ + + + + + Encounter Details +--------+ + + + + | Date | Type | Department | Care Team | Description | +--------+ + + + + | 03/03/ | Hospital | [facility] | Sofie Sneed MD | Sleep apnea, | | 2018 - | Encounter | MED CTR SLEEP | [address] | unspecified type | | | | CENTER [address] | [place], [place] | | | 03/04/ | | [place], [place] | [address] | | | 2017 | | [address] | | | | | | [phone] | | | +--------+ + + + [...] | | | | | (VITAMIN D-3) 10162 | a week. | | | | [...] + +--------+---------+ + + | lisinopril | 2 times daily. | | | 01/08/20 | | | (PRINIVIL, ZESTRIL) | | | | 18 | 8 | | 5 mg tablet | | | | | | + + +--------+---------+ + + as of this encounter Plan of Treatment +--------+ + + + + | Date | Type | Specialty | Care Team | Description | +--------+ + + + + | 05/04/ | Office | Cardiac | Randy Figeuroa, | | | 2017 | Visit | Rehabilitation | MD Javid Crespo | | | | | | [address] | | | | | | [place] [address] | | | | | | [phone] | | | | | | | | +--------+ + + + + | 05/24/ | Appointment | Sleep Medicine | Sofie Sneed MD | | | 2017 | | | [address] | | | | | | [place] | | | | | | [address] | | | | | | | | +--------+ + + + + | 06/02/ | Office | Cardiology | Jenny, | | | 2017 | Visit | | ADARSH Santo [address] | | | | | | [place], | | | | | | [place] [address] | | | | | | [phone] | | | | | | | [...] + + + in this encounter Results Sleep study diagnostic only (no PAP) (03/07/2018 1635) + + + | Narrative | Performed At | + + + | Sofie Sneed | | | 03/07/2018 16:57 [facility] | | | [place] [address] Polysomnogram | | | Report on Bob Will performed on March 03 2800 PATIENT | | | IDENTIFICATION: Bob Will IS a 62 y.o..-year-old male. | | | with a history of coronary 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 post recent anterior wall | | | [place], post PTCA and stents on 03/15/17, cardiac [...] sleep study as | | | better. Metal Cutter note: patient tried medium dreamwear nasal mask [...] this chart may have been created with Bloodhound voice | | | recognition software. Occasional [...] this chart may have been created with Bloodhound voice | | |recognition software. Occasional wrong-word [...] | Sofie Sneed MD - 03/07/2018 1635 [facility] | | [place], [place] [address]Bq[place]icffzsia Report on Bob Chaudhary | | Suman performed on March 03 2800PATIENT IDENTIFICATION:Bob Will IS a 62 | | y.o..-year-old male. with a history of coronary 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 post recent anterior wall | | [place], post PTCA and stents on 03/15/17, cardiac [...] during sleep study as better. | | Metal Cutter note: patient tried medium dreamwear nasal mask [...] may have been | | created with Bloodhound voice recognition software. Occasional wrong-word or | [...] this chart may have been created with Bloodhound voice recognition software. Occasi onal wrong-word or sound-alike substitutions may have occurred due to the inherent canseco itations of voice recognition software. | |Please read the chart carefully and recognize, using context, where these substitutions hav e occurred. | + + in this encounter Visit Diagnoses + + | Diagnosis | + + | Sleep apnea, unspecified type | + +"
--- OUTSIDE RECORDS SUMMARY | ~2018-05-01 | XMS | Encounter Summary ---
Demographics + + + | Address | [address] | | | [place] [address] | + + + | Home Phone [...] | + + + + + | [place] | ECON | [address] | | | | | #[place] | | | | | [address] | | + + + + + Care Team Providers + +------+ + | Care Drafter Electronic Name | Role | Phone | + +------+ + | Chato Matson MD | PCP | | + +------+ + Encounter Details +--------+ + + + + | Date | Type | Department | Care Team | Description | +--------+ + + + + | 03/30/ | Abstract | [facility] | Randy Figueroa, | | | 2017 | | CARDIOLOGY [address] | MD [address] | | | | | [place], | [place], | | | | | [place] [address] | [place] [id number] | | | | | [phone] | [phone] | | | | | | | [...] | 05/04/ | Office | Cardiac | RahulyazshirazZoëleo, | | | 2017 | Visit | Rehabilitation | [address] | | | | | | [place], | | | | | | [place] [address] | | | | | | [phone] | | | | | | | | +--------+ + + + + | 05/24/ | Appointment | Sleep Medicine | Sofie Sneed MD | | | 2017 | | | [address] | | | | | | [place] | | | | | | [address] | | | | | | | | +--------+ + + + + | 06/02/ | Office | Cardiology | Jenny, | | | 2017 | Visit | | ADARSH Santo [address] | | | | | | [place], | | | | | | [place] [address] | | | | | | [phone] | | | | | | | [...] in this encounter Results Basic Metabolic Panel (03/26/2018) + +-------+ + + | Component | Value | Ref Range | Performed At | + +-------+ + + | ANION GAP | 21 | 7 - 21 mmol/L | | + +-------+ + + | Bun/Creatinine | 14.8 | 6 - 28.6 | | + +-------+ + + + + | Specimen | + + | Blood | + + External Lab: BUN (03/26/2018) + +--------+ + + | Component | Value | Ref Range | Performed At | + +--------+ + + | BUN, External | 26 (A) | 6 - 23 | EXTERNAL LAB | + +--------+ + + + + | Resulting Agency Comment | + + | [facility] | + + + +---------+ + + | Performing | Address | City/State/Zipcode | Phone Number | | Organization | | | | + +---------+ + + | EXTERNAL LAB | | | | + +---------+ + + External Lab: Glucose (03/26/2018) + +---------+ + + | Component | Value | Ref Range | Performed At | + +---------+ + + | Glucose, External | 135 (A) | 70 - 100 | EXTERNAL LAB | + +---------+ + + + + | Resulting Agency Comment | + + | [facility] | + + + +---------+ + + | Performing | Address | City/State/Zipcode | Phone Number | | Organization | | | | + +---------+ + + | EXTERNAL LAB | | | | + +---------+ + + External Lab: Calcium (03/26/2018) + +-------+ + + | Component | Value | Ref Range | Performed At | + +-------+ + + | Calcium, External | 9.2 | 8.5 - 10.2 | EXTERNAL LAB | + +-------+ + + + + | Resulting Agency Comment | + + | [facility] | + + + +---------+ + + | Performing | Address | City/State/Zipcode | Phone Number | | Organization | | | | + +---------+ + + | EXTERNAL LAB | | | | + +---------+ + + External Lab: Carbon Dioxide (03/26/2018) + +-------+ + + | Component | Value | Ref Range | Performed At | + +-------+ + + | Carbon Dioxide, | 20 | 19 - 31 | EXTERNAL LAB | | External | | | | + +-------+ + + + + | Resulting Agency Comment | + + | [facility] | + + + +---------+ + + | Performing | Address | City/State/Zipcode | Phone Number | | Organization | | | | + +---------+ + + | EXTERNAL LAB | | | | + +---------+ + + External Lab: Chloride (03/26/2018) + +-------+ + + | Component | Value | Ref Range | Performed At | + +-------+ + + | Chloride, External | 104 | 95 - 112 | EXTERNAL LAB | + +-------+ + + + + | Resulting Agency Comment | + + | [facility] | + + + +---------+ + + | Performing | Address | City/State/Zipcode | Phone Number | | Organization | | | | + +---------+ + + | EXTERNAL LAB | | | | + +---------+ + + External Lab: Potassium (03/26/2018) + +-------+ + + | Component | Value | Ref Range | Performed At | + +-------+ + + | Potassium, External | 4.3 | 3.6 - 5.1 | EXTERNAL LAB | + +-------+ + + + + | Resulting Agency Comment | + + | [facility] | + + + +---------+ + + | Performing | Address | City/State/Zipcode | Phone Number | | Organization | | | | + +---------+ + + | EXTERNAL LAB | | | | + +---------+ + + External Lab: Sodium (03/26/2018) + +-------+ + + | Component | Value | Ref Range | Performed At | + +-------+ + + | Sodium, External | 140 | 132 - 143 | EXTERNAL LAB | + +-------+ + + + + | Resulting Agency Comment | + + | [facility] | + + + +---------+ + + | Performing | Address | City/State/Zipcode | Phone Number | | Organization | | | | + +---------+ + + | EXTERNAL LAB | | | | + +---------+ + + External Lab: eGFR (03/26/2018) + +--------+ + + | Component | Value | Ref Range | Performed At | + +--------+ + + | eGFR, External | 39 (A) | 60 | EXTERNAL LAB | + +--------+ + + + + | Specimen | + + | Blood | + + + + | Resulting Agency Comment | + + | [facility] | + + + +---------+ + + | Performing | Address | City/State/Zipcode | Phone Number | | Organization | | | | + +---------+ + + | EXTERNAL LAB | | | | + +---------+ + + External Lab: Creatinine (03/26/2018) + + + + + | Component | Value | Ref Range | Performed At | + + + + + | Creatinine, External | 1.76 (A) | 0.7 - 1.25 | EXTERNAL LAB | + + + + + + + | Specimen | + + | Blood | + + + + | Resulting Agency Comment | + + | [facility] | + + + +---------+ + + | Performing | Address | City/State/Zipcode | Phone Number | | Organization | | | | + +---------+ + + | EXTERNAL LAB | | | | + +---------+ + + in this encounter Visit Diagnoses Not on filein this encounter"
--- OUTSIDE RECORDS SUMMARY | ~2018-05-01 | XMS | Encounter Summary ---
Demographics + + + | Address | [address] | | | [place] [address] | + + + | Home Phone [...] + + | [place] | ECON | [address] | | | | | #[place] | | | | | [address] | | + + + + + Care Team Providers + +------+ + | Care Maintenance Director Name | Role | Phone | + +------+ + | Chato Matson MD | PCP | | + +------+ + Encounter Details +--------+ + + + + | Date | Type | Department | Care Team | Description | +--------+ + + + + | 04/22/ | Abstract | [facility] | Randy Figueroa, | | | 2017 | | CARDIOLOGY [address] | MD [address] | | | | | [place], | [place], | | | | | [place] [address] | [place] [address] | | | | | [phone] | [phone] | | | | | | | [...] 2017 | Visit | Rehabilitation | [address] | | | | | | [place], | | | | | | [place] [address] | | | | | | [phone] | | | | | | | | +--------+ + + + + | 05/24/ | Appointment | Sleep Medicine | Sofie Sneed MD | | | 2017 | | | [address] | | | | | | [place] | | | | | | [address] | | | | | | | | +--------+ + + + + | 06/02/ | Office | Cardiology | Jenny, | | | 2017 | Visit | | ADARSH Santo [address] | | | | | | [place], | | | | | | [place] [address] | | | | | | [phone] | | | | | | | [...] Metabolic Panel (04/20/2018) + +--------+ + + | Component | [...] Lab: Glucose (04/20/2018) + +---------+ + + | Component | Value | Ref Range | Performed At | + +---------+ + + | Glucose, External | 103 (A) | 70 - 100 | | + +---------+ + + External Lab: Calcium (04/20/2018) + +-------+ + + | Component | Value | Ref Range | Performed At | + +-------+ + + | Calcium, External | 8.9 | 8.5 - 10.3 | | + +-------+ + + External Lab: Carbon Dioxide (04/20/2018) + +-------+ + + | Component | Value | Ref Range | Performed At | + +-------+ + + | Carbon Dioxide, | 19 | 19 - 31 | | | External | | | | + +-------+ + + External Lab: Chloride (04/20/2018) + +-------+ + + | Component | Value | Ref Range | Performed At | + +-------+ + + | Chloride, External | 105 | 95 - 112 | | + +-------+ + + External Lab: Potassium (04/20/2018) + +-------+ + + | Component | Value | Ref Range | Performed At | + +-------+ + + | Potassium, External | 4.7 | 3.6 - 5.1 | | + +-------+ + + External Lab: Sodium (04/20/2018) + +-------+ + + | Component | Value | Ref Range | Performed At | + +-------+ + + | Sodium, External | 142 | 132 - 143 | | + +-------+ + + External Lab: eGFR (04/20/2018) + +-------+ + + | Component | Value | Ref Range | Performed At | + +-------+ + + | eGFR, External | 40 | | | + +-------+ + + + + | Specimen | + + | Blood | + + External Lab: Creatinine (04/20/2018) + + + + + | Component | Value | Ref Range | Performed At | + + + + + | Creatinine, External | 1.72 (A) | 0.7 - 1.25 | | + + + + + + + | Specimen | + + | Blood | + + in this encounter Visit Diagnoses Not on filein this encounter"
--- OUTSIDE RECORDS SUMMARY | ~2018-05-01 | XMS | Clinical Summary ---
Demographics + + + | Address | [address] | | | [place] [address] | + + + | Home Phone | | + + + | Preferred Language | Unknown | + + + | Marital Status | | + + + | Jewish Affiliation | Unknown | + + + [...] + + | [place] | ECON | [address] | | | | | #[place] | | | | | [address] | | + + + + + Care Team Providers + +------+ + | Care Work Ticket Distributor Name | Role | Phone | + [...] | | Activ | | (VITAMIN D-3) [id number] | a week. | | | | [...] | + + + + + | APPLIANCE REPAIRER-D (AICD) Medtronic 10/16/17 EULOGIO Darby | 10/19/2017 | + + + + + | Overview: Formatting of this note may be different from the | | original. MODEL NAME MODEL# SERIAL# DATE IMPLANTED GENERATOR | | Medtronic [id number] 10/16/17 RV LEAD Medtronic [id number] 62 | | [id number] 10/16/17 A LEAD Medtronic 5076 52 [id number] 10/16/17 | | Coronary Sinus LEAD Medtronic 4598 88 [id number] 10/16/17 | | Indication: ischemic cardiomyopathy with reduced EF 30-35% | |Coronary Sinus LEAD Medtronic 4598 88 [id number] 10/16/17 | |Indication: ischemic cardiomyopathy with reduced [...] + + + | Overview: S/P Medtronic APPLIANCE REPAIRER-D 10-16-17 Dr Darby, [facility] Scan | | 10/13/17 shows No Significant [...] + + | Coronary 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 involving ho-chunk coronary artery of | 04/06/2017 | | ho-chunk heart without angina pectoris | | + [...] + + + | Acute anterior wall [place] ([facility]) | 04/03/2017 | + + [...] involving | | | | | | ho-chunk coronary | | | | | | artery of ho-chunk | | | | | | heart [...] involving | | | | | | ho-chunk coronary | | | | | | artery of ho-chunk | | | | | | heart [...] | | | | | (Primary Dx); APPLIANCE REPAIRER-D | | | | | | (AICD) [...] 2017 | Visit | | [address] | | | | | | [place], | | | | | | [place] [address] | | | | | | [phone] | | | | | | | | +--------+ + + + + | 05/24/ | Appointment | | Sofie Sneed MD | | | 2017 | | | [address] | | | | | | [place] | | | | | | [address] | | | | | | | | +--------+ + + + + | 06/02/ | Office | | Jenny, | | | 2017 | Visit | | ADARSH Santo [address] | | | | | | [place], | | | | | | [place] [address] | | | | | | [phone] | | | | | | | [...] / Lot | + +--------+--------+ +--------+--------+--------+ | Chemistry Associate-D MedtronicImplanted: | Implan | | MEDTRONIC - [...] N/A: | ISAACS | | 12/29/ | [id number] | | Eluting Coronary Stent System | | [place] | DIAGNOSTICS | | 2019 | 0-18 / | | Implanted: Qty: 1 on | | ry | - DAINA | | | | | 03/15/2017 by Monse Ross, | | | | | | /[id number] | | MD | | | | | | 60 | + +--------+--------+ +--------+--------+--------+ | Xience Alpine Everolimus | Stent | N/A: | ISAACS | | 11/03/ | [id number] | | Eluting Coronary Stent System | | [place] | DIAGNOSTICS | | 2019 | 0- / | | Implanted: Qty: 1 on | | ry | - DAINA | | | | | 03/15/2017 by Monse Ross, | | | | | | /[id number] | | MD | | | | [...] results section. | | | | | APPLIANCE REPAIRER-D (AICD) | | | | | | [...] Number J Patient | | | Number [id number] Date of | | | Study 04/02/2018 Visit Number [id number] | | | Referring | | | Physician CAROLINA AGUILAR Number Date of | | | 1955 | | | Assistant Signal Maintainer FRANNIE ISAACS LORENZO | | | Age 62 year(s) | | | Interpreting CAROLINA | | | LAUREN | | | Vp Revenue Cycle LAUREN | | | [place]INA | | | | | | Gender Male Nurse | | | | | | Stress Control Room Supervisor Procedure Type of Study TTE procedure: ECHO [...] Diastolic: 0.9 cm EF | | | Guqybsqzb92% EF Calculated: 32% Miscellaneous Aorta Aortic Root: [...] Diastolic: 0.9 cm | | | EF Hpwoxddxa83% | | | EF Calculated: 32% | [...] J | | | | Patient Number [id number] Date of Study 04/02/2018 | | | | Visit Number [id number] | | | | Referring Physician CAROLINA AGUILAR | | Number | | | | Date of 1955 Assistant Signal Maintainer FRANNIE ISAACS [facility] | | | | Age 62 year(s) Interpreting CAROLINA AGUILAR | | Vp Revenue Cycle LAUREN FIGUEROA, | | MD | | | | Gender Male Nurse | | | | Stress Control Room Supervisor | | | | Procedure | | [...] PW Diastolic: 0.9 cm | | EF Ktankuywb34% | | EF Calculated: 32% | | [...] V53.32 Device Interrogation | | | 2. APPLIANCE REPAIRER-D (AICD) Medtronic 10/16/17 [facility] Stecker Z95.810 V45.02 Device | | | [...] Sleep study diagnostic only (no PAP) (03/07/2018 4625) + + + | Narrative | Performed At | + + + | Sofie Sneed, | | | 03/07/2018 16:57 [facility] | | | [place] [address] Polysomnogram | | | Report on Ron [...] sleep study as | | | better. Control Room Supervisor note: patient tried medium dreamwear nasal mask [...] this chart may have been created with [employer] voice | | | recognition software. Occasional [...] this chart may have been created with [employer] voice | | |recognition software. Occasional wrong-word [...] PDT [facility] | | [place], [place] [address]Ohduzrsmwqvce Report on Ron Chaudhary | | Mike [...] during sleep study as better. | | Control Room Supervisor note: patient tried medium dreamwear nasal mask [...] may have been | | created with [employer] voice recognition software. Occasional wrong-word or | [...] this chart may have been created with [employer] voice recognition software. Occasi onal wrong-word or [...] | [employer] | MODA | [id number] | Medica | [phone] | | MEDICAID HMO | HEALTH | | id | [id number] | | | | MDCD | | | | | | | [place] | | | | | + +--------+ +--------+ +---------+ | [employer] | VETERA | [id number] | Indemn | | | | | [...] RON MCKEON | Person | Self | [birth year] Home: | [address] | | | al/Fam | | 1955 | [phone] | [address] [place], | | | [place] | | | [address] | [place] [address] | + +--------+ +--------+ + +
--- OUTSIDE RECORDS SUMMARY | ~2018-05-01 | XMS | Encounter Summary ---
Demographics + + + | Address | [address] | | | [place] [address] | + + + | Home Phone [...] + | [place] | ECON | [address] | | | | | #[place] | | | | | [address] | | + + + + + Care Team Providers + +------+ + | Care Regulatory Affairs Analyst Name | Role | Phone | [...] + + | Authorized | Specialty | Sleep | Diagnoses | Nedra, | [facility] | | | Services | Medicine | L[place]ISA | MD Sofie | Center [address] | | | Required | | (obstructive | [address] | [place] | | | | | sleep | [address] | [place], | | | | | apnea) | [place] | [place] [address] | | | | | Procedures | [address] | Phone: | | | | | [place] POLYSOM | Phone: | [phone] | | | | | 6/>YRS SLEEP | [phone] | Fax: | | | | | W/CPAP 4/> | Fax: | [phone] | | | | | ADDL [place] | [phone] | | | | | | ATTND [place] | | | | | | | POLYSOM | | | | | | | 6/>YRS SLEEP | | | | | | | 4/> ADDL | | | | | | | KATER[place] ATTND | | | | | | | PAP | | | | | | | (05/24/18@8pm | | | | | | | ) CX LIST | | | + + + + + + + Reason for Visit + + + | Reason | Comments | + + + | CPAP Follow Up | | + + + Encounter Details +--------+---------+ + + + | Date | Type | Department | Care Team | Description | +--------+---------+ + + + | 04/14/ | Office | [facility] | Sofie Sneed MD | LOUISA (obstructive | | 2018 | Visit | SLEEP DISORDER [address] | [address] | sleep apnea) | | | | [address] [place] | [place] | (Primary Dx) | | | | [place] [address] | [address] | | | | | [phone] | | | +--------+---------+ + + + [...] | Body Mass Index | 31.82 | 04/14/2018 0810 PDT | + + + + in this encounter Progress Notes Sofie Sneed MD - 04/14/201815 PDTFormatting of this note may be different from the or iginal. The patient comes in to discuss sleep study results. My interpretation of the patient's s leep study, which I have reviewed with the patient, is as follows: Polysomnogram Report on Bob Will performed on March 03 2800 PATIENT IDENTIFICATION: Bob Will IS a 62 y.o..-year-old male. with a history of coronary 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 post recent anterior wall [place], post PTCA and stents on 03/15/17, cardiac [...] breaths does not meet criteria for an painter helper ea or hypopnea. REVELANT MEDICATIONS: Tramadol, hydrocodonehypopnea acetaminophen, gabapentin. SUBJECTIVE: The patient rated sleep quality during sleep study as better. Bridge/Structure Inspection Team Leader note: patient tried medium dreamwear nasal mask [...] supine position with supine AHI of 13.4. Deon bermudez spent 41.3% of total sleep time in [...] and/or coordination of care regarding sleep apnea. in this encounter Plan of Treatment +--------+ + + + + | Date | Type | Specialty | Care Team | Description | +--------+ + + + + | 05/04/ | Office | Cardiac | Randy Figueroa, | | | 2017 | Visit | Rehabilitation | MD [address] | | | | | | [place] | | | | | | [place] [address] | | | | | | [phone] | | | | | | | | +--------+ + + + + | 05/24/ | Appointment | Sleep Medicine | Sofie Sneed MD | | | 2017 | | | [address] | | | | | | [place] | | | | | | [address] | | | | | | | | +--------+ + + + + | 06/02/ | Office | Cardiology | Jenny, | | | 2017 | Visit | | ADARSH Santo [address] | | | | | | [place], | | | | | | [place] [address] | | | | | | [phone] | | | | | | | | +--------+ + + + + + +--------+ + + | Name | Priori | Associated Diagnoses | Order Schedule | | | ty | | | + +--------+ + + | * [facility] - AMB Referral | Routin | LOUISA (obstructive | Ordered: 04/14/2018 | | | e | sleep apnea) | | + +--------+ + + as of this encounter Visit Diagnoses + + | Diagnosis | + + | LOUISA (obstructive sleep apnea) - Primary | + + | Obstructive sleep apnea (adult) (pediatric) | + +"
--- OUTSIDE RECORDS SUMMARY | ~2018-05-01 | XMS | Encounter Summary ---
Demographics + + + | Address | [address] | | | [place] [address] | + + + | Home Phone | | + + + | Preferred Language | Unknown | + + + | Marital Status | | + + + | Faith Affiliation | Unknown | + + + [...] + + | [place] | ECON | [address] | | | | | #[place] | | | | | [address] | | + + + + + Care Team Providers + +------+ + | Care Nuclear Supervising Operator Name | Role | Phone | [...] | CARDIOLOGY [address] | MD [address] | | | | | [place], | [place], | | | | | [place] [address] | [place] [address] | | | | | [phone] | [phone] | | | | | | | [...] 2017 | Visit | Rehabilitation | [address] | | | | | | [place], | | | | | | [place] [address] | | | | | | [phone] | | | | | | | | +--------+ + + + + | 05/24/ | Appointment | Sleep Medicine | Sofie Sneed MD | | | 2017 | | | [address] | | | | | | [place] | | | | | | [address] | | | | | | | | +--------+ + + + + | 06/02/ | Office | Cardiology | Jenny, | | | 2017 | Visit | | ADARSH Santo [address] | | | | | | [place], | | | | | | [place] [address] | | | | | | [phone] | | | | | | | [...]
--- OUTSIDE RECORDS SUMMARY | ~2018-05-01 | XMS | Encounter Summary ---
Demographics + + + | Address | [address] | | | [place] [address] | + + + | Home Phone [...] + | [place] | ECON | [address] | | | | | #[place] | | | | | [address] | | + + + + + Care Team Providers + +------+ + | Care Powder Core Tester Name | Role | Phone | [...] | (obstructive | [address] | [place] | | | | | sleep | [address] | [place], | | | | | apnea) | [place] | [place] [address] | | | | | Procedures | [address] | Phone: | | | | | [place] POLYSOM | Phone: | [phone] | | | | | 6/>YRS SLEEP | [phone] | Fax: | | | | | W/CPAP 4/> | Fax: | [phone] | | | | | ADDL KATERINA | [phone] | | | | | | ATTND [place] | | | | | | | [...] + + | 04/14/ | Office | [facility] | Sofie Sneed MD | L[place]ISA (obstructive | | 2018 | Visit | SLEEP DISORDER [address] | [address] | sleep apnea) | | | | [address] [place] | [place] | (Primary Dx) | | | | [place] [address] | [address] | | | | | [phone] | | | +--------+---------+ + + + [...] coronary 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 post recent anterior wall [place], post PTCA and stents on 03/15/17, cardiac [...] breaths does not meet criteria for an software consultant ea or hypopnea. REVELANT MEDICATIONS: Tramadol, hydrocodonehypopnea acetaminophen, gabapentin. SUBJECTIVE: The patient rated sleep quality during sleep study as better. Stereotyper Apprentice note: patient tried medium dreamwear nasal mask [...] | | | | | | [place] [address] | | | | | | [phone] | | | | | | | | +--------+ + + + + | 05/24/ | Appointment | Sleep Medicine | Sofie Sneed MD | | | 2017 | | | [address] | | | | | | [place] | | | | | | [address] | | | | | | | | +--------+ + + + + | 06/02/ | Office | Cardiology | Jenny, | | | 2017 | Visit | | ADARSH Santo [address] | | | | | | [place], | | | | | | [place] [address] | | | | | | [phone] | | | | | | | | +--------+ + + + + + +--------+ + + | Name | Priori | Associated Diagnoses | Order Schedule | | | ty | | | + +--------+ + + | * [facility] - AMB Referral | Routin [...]
--- OUTSIDE RECORDS SUMMARY | ~2018-05-01 | XMS | Encounter Summary ---
Demographics + + + | Address | [address] | | | [place] [address] | + + + | Home Phone [...] + + | [place] | ECON | [address] | | | | | #[place] | | | | | [address] | | + + + + + Care Team Providers + +------+ + | Care Washer Machine Name | Role | Phone | [...] Description | +--------+--------+ + + + | 04/28/ | Refill | [facility] | Jenny, | Medication Refill | | 2017 | | CARDIOLOGY [address] | ADARSH Santo [address] | | | | | [place], | [place], | | | | | [place] [address] | [place] [address] | | | | | [phone] | [phone] | | | | | | | [...] [place], | | | | | | [place] [address] | | | | | | [phone] | | | | | | | | +--------+ + + + + | 05/24/ | Appointment | Sleep Medicine | Sofie Sneed MD | | | 2017 | | | [address] | | | | | | [place] | | | | | | [address] | | | | | | | | +--------+ + + + + | 06/02/ | Office | Cardiology | Jenny, | | | 2017 | Visit | | ADARSH Santo [address] | | | | | | [place] | | | | | | [place] [address] | | | | | | [phone] | | | | | | | | +--------+ + + + + as of this encounter Visit Diagnoses Not on filein this encounter"
--- OUTSIDE RECORDS SUMMARY | ~2018-05-01 | XMS | Encounter Summary ---
Demographics + + + | Address | [address] | | | [place] [address] | + + + | Home Phone [...] + + | [place] | ECON | [address] [facility] | | | | | #[place] | | | | | [address] | | + + + + + Care Team Providers + +------+ + | Care Granulizing Machine Operator Name | Role | Phone [...] | y Numbness | [address] | [address] [facility] | | | | | and tingling | [place] | [facility] [place] | | | | | of both | Drive [place] | [address] Phone: | | | | | legs | [place], [place] | [phone] | | | | | Weakness | [address] | Fax: | | | | | Procedures | Phone: | [phone] | | | | | [place] MOTOR | [phone] | | | | | | &/SENS 3-4 | Fax: | | | | | | NRV CNDJ | [phone] | | | | | | PRECONF | | | | | | | ELTR[place]DE LIMB | | | | | | | [place] MOTOR | | | | | | | &/SENS 5-6 | | | | | | | NRV CNDJ | | | | | | | PRECONF | | | | | | | ELTRODE LIMB | | | | | | | VA EMG, | | | | | | | NEEDLE, TWO | | | | | | | [place] | | | | | | | [...] [place] | Paresthesias/numbnes | | | | [place], | [place] | s | | | | [place] [address] | [address] | | | | | [phone] | | | +--------+ + + + [...] may be different from t he original. [facility] Musculoskeletal, Sports and Spine, Physiatry [facility] [address] [address] Test Date: 02/24/2018 Patient Name: Bob Wlil : 1955 Physician: Prosper Esteves MD MR #: [id number] Sex: Male Referring Physician: Chato Matson MD [...] (V) L-R Amp (%) Site1 Site2 L Rhoan (m/s) R Rohan (m/s) L-R Rohan (m/s) [...] hesitate to call. Prosper Esteves MD Fellow, [employer]. in this encounter Plan of Treatment +--------+ [...] | | | | | | [place] [address] | | | | | | [phone] | | | | | | | | +--------+ + + + + | 05/24/ | Appointment | Sleep Medicine | Sofie Sneed MD | | | 2017 | | | [address] | | | | | | [place] | | | | | | [phone] | | | | | | | | +--------+ + + + + | 06/02/ | Office | Cardiology | Jenny, | | | 2017 | Visit | | ADARSH Santo [address] | | | | | | [place], | | | | | | [place] [address] | | | | | | [phone] | | | | | | | | +--------+ + + + + as of this encounter Visit Diagnoses + + | Diagnosis | + + | Left leg weakness | + + | Other musculoskeletal symptoms referable to limbs | + + | Paresthesias/numbness | + + | Disturbance of skin sensation | + +
--- OUTSIDE RECORDS SUMMARY | ~2018-05-01 | XMS | Encounter Summary ---
Demographics + + + | Address | [address] | | | [place] [address] | + + + | Home Phone [...] + + | [place] | ECON | [address] | | | | | #[place] | | | | | [address] | | + + + + + Care Team Providers + +------+ + | Care Developer Automatic Name | Role | Phone | + +------+ + | Chato Matson MD | PCP | | + +------+ + Encounter Details +--------+ + + + + | Date | Type | Department | Care Team | Description | +--------+ + + + + | 04/26/ | Abstract | [facility] | Jenny, | | | 2017 | | CARDIOLOGY [address] | HansaADARSH weldon [address] | | | | | [place], | [place], | | | | | [place] [address] | [place] [address] | | | | | [phone] | [phone] | | | | | | | [...] | 05/04/ | Office | Cardiac | RahulyazshirazLindarahul, | | | 2017 | Visit | Rehabilitation | [address] | | | | | | [place], | | | | | | [place] [address] | | | | | | [phone] | | | | | | | | +--------+ + + + + | 05/24/ | Appointment | Sleep Medicine | Sofie Sneed MD | | | 2017 | | | [address] | | | | | | [place] | | | | | | [address] | | | | | | | | +--------+ + + + + | 06/02/ | Office | Cardiology | Jenny, | | | 2017 | Visit | | ADARSH Santo [address] | | | | | | [place], | | | | | | [place] [address] | | | | | | [phone] | | | | | | | [...] + + + in this encounter Results CBC with Differential [...] Lab: CBC (04/22/2018) + +---------+ + + | Component [...] Lab: DONTE (04/22/2018) + +-------+ + + | Component | Value | Ref Range | Performed At | + +-------+ + + | BUN, External | 19 | 7 - 23 | EXTERNAL LAB | + +-------+ + + + +---------+ + + | Performing | Address | City/State/Zipcode | Phone Number | | Organization | | | | + +---------+ + + | EXTERNAL LAB | | | | + +---------+ + + External Lab: Glucose (04/22/2018) + +---------+ + + | Component [...] Lab: Calcium (04/22/2018) + +---------+ + + | Component [...] Carbon Dioxide (04/22/2018) + +-------+ + + | Component [...] Lab: Chloride (04/22/2018) + +-------+ + + | Component [...] Lab: Potassium (04/22/2018) + +-------+ + + | Component [...] Lab: Sodium (04/22/2018) + +-------+ + + | Component [...] Lab: CBC (04/22/2018) + +-------+ + + | Component | Value | Ref Range | Performed At | + +-------+ + + | WBC, External | 10.2 | 3 - 10.6 | EXTERNAL LAB | + +-------+ + + | HGB, External | 14.0 | 11.8 - 17.1 | EXTERNAL LAB | + +-------+ + + | HCT, External | 43.0 | 36 - 51 | EXTERNAL LAB | + +-------+ + + | RBC, External | 4.63 | 3.86 - 5.7 | EXTERNAL LAB | + +-------+ + + | MCV, External | 93 | 81 - 102 | EXTERNAL LAB | + +-------+ + + + +---------+ + + | Performing | Address | City/State/Zipcode | Phone Number | | Organization | | | | + +---------+ + + | EXTERNAL LAB | | | | + +---------+ + + External Lab: eGFR (04/22/2018) + + + + + | Component [...] Lab: Creatinine (04/22/2018) + +---------+ + + | Component [...]
--- OUTSIDE RECORDS SUMMARY | ~2018-05-01 | XMS | Encounter Summary ---
Demographics + + + | Address | [address] | | | [place] [address] | + + + | Home Phone [...] + + | [place] | ECON | [address] [facility] | | | | | #[place] | | | | | [address] | | + + + + + Care Team Providers + +------+ + | Care Mechanical Inspector Name | Role | Phone | [...] | y Numbness | [address] | [address] [facility] | | | | | and tingling | [place] | [facility] [place] | | | | | of both | Drive [place] | [address] Phone: | | | | | legs | [place], [place] | [phone] | | | | | Weakness | [address] | Fax: | | | | | Procedures | Phone: | [phone] | | | | | [place] | [phone] | | | | | | &/SENS 3-4 | Fax: | | | | | | NRV CNDJ | [phone] | | | | | | PRECONF | | | | | | | [place]TR[place] LIM[place] | | | | | | | [place] | | | | | | | &/SENS 5-6 | | | | | | | NRV CNDJ | | | | | | | PRECONF | | | | | | | [place] | | | | | | | [place] EMG, | | | | | | | NEEDLE, TWO | | | | | | | [place] | | | | | | [...] [place] | Paresthesias/numbnes | | | | [place], | [place] | s | | | | [place] [address] | [address] | | | | | [phone] | | | +--------+ + + + [...] may be different from t he original. [facility] Musculoskeletal, Sports and Spine, Physiatry [facility] [address] [address] Test Date: 02/24/2018 Patient Name: Bob Will : 1955 Physician: Prosper Esteves MD MR #: [id number] Sex: Male Referring Physician: Chato Matson MD [...] hesitate to call. Prosper Esteves MD Fellow, [employer] [employer]. in [...] | | | | | | [place] [address] | | | | | | [phone] | | | | | | | | +--------+ + + + + | 05/24/ | Appointment | Sleep Medicine | Sofie Sneed MD | | | 2017 | | | [address] | | | | | | [place] | | | | | | [phone] | | | | | | | | +--------+ + + + + | 06/02/ | Office | Cardiology | Jenny, | | | 2017 | Visit | | ADARSH Santo [address] | | | | | | [place], | | | | | | [place] [address] | | | | | | [phone] | | | | | | | | +--------+ + + + + as of this encounter Visit Diagnoses + + | Diagnosis | + + | Left leg weakness | + + | Other musculoskeletal symptoms referable to limbs | + + | Paresthesias/numbness | + + | Disturbance of skin sensation | + +
--- OUTSIDE RECORDS SUMMARY | ~2018-05-01 | XMS | Encounter Summary ---
Demographics + + + | Address | [address] | | | [place] [address] | + + + | Home Phone [...] + | [place] | ECON | [address] | | | | | #[address] | | | | | [address] | | + + + + + Care Team Providers + +------+ + | Care Potato Loader Name | Role | Phone | + [...] + + | 04/27/ | Telephone | [facility] | Carolina Lindarisa, | Blood Pressure | | 2018 | | CARDIOLOGY [address] | [address] | | | | | [place], | [place], | | | | | [place] [address] | [place] [address] | | | | | [phone] | [phone] | | | | | | | [...] | | | | | | [place] [address] | | | | | | [phone] | | | | | | | | +--------+ + + + + | 05/24/ | Appointment | Sleep Medicine | Sofie Sneed MD | | | 2017 | | | [address] | | | | | | [place] | | | | | | [address] | | | | | | | | +--------+ + + + + | 06/02/ | Office | Cardiology | Jenny, | | | 2017 | Visit | | ADARSH Santo [address] | | | | | | [place], | | | | | | [place] [address] | | | | | | [phone] | | | | | | | | +--------+ + + + + as of this encounter Visit Diagnoses Not on filein this encounter"
--- OUTSIDE RECORDS SUMMARY | ~2018-05-01 | XMS | Encounter Summary ---
Demographics + + + | Address | [address] | | | [place] [address] | + + + | Home Phone [...] + | [place] | ECON | [address] | | | | | #[address] | | | | | [address] | | + + + + + Care Team Providers + +------+ + | Care Track Broom Operator Name | Role | Phone | [...] + + | 04/06/ | Telephone | [facility] | Carolina Lindarisa, | Blood Pressure | | 2018 | | CARDIOLOGY [address] | [address] | | | | | [place], | [place], | | | | | [place] [address] | [place] [address] | | | | | [phone] | [phone] | | | | | | | [...] | | | | | | [place] [address] | | | | | | [phone] | | | | | | | | +--------+ + + + + | 05/24/ | Appointment | Sleep Medicine | Sofie Sneed MD | | | 2017 | | | [address] | | | | | | [place] | | | | | | [address] | | | | | | | | +--------+ + + + + | 06/02/ | Office | Cardiology | Jenny, | | | 2017 | Visit | | ADARSH Santo [address] | | | | | | [place], | | | | | | [place] [address] | | | | | | [phone] | | | | | | | | +--------+ + + + + as of this encounter Visit Diagnoses Not on filein this encounter"
--- OUTSIDE RECORDS SUMMARY | ~2018-05-01 | XMS | Encounter Summary ---
Demographics + + + | Address | [address] | | | [place] [address] | + + + | Home Phone [...] + | [place] | ECON | [address] | | | | | #[address] | | | | | [address] | | + + + + + Care Team Providers + +------+ + | Care Research Quality Assurance Analyst Name | Role | Phone | [...] + + | 04/27/ | Telephone | [facility] | Carolina Lindarisa, | Blood Pressure | | 2018 | | CARDIOLOGY [address] | [address] | | | | | [place], | [place], | | | | | [place] [address] | [place] [address] | | | | | [phone] | [phone] | | | | | | | [...] | | | | | | [place] [address] | | | | | | [phone] | | | | | | | | +--------+ + + + + | 05/24/ | Appointment | Sleep Medicine | Sofie Sneed MD | | | 2017 | | | [address] | | | | | | [place] | | | | | | [address] | | | | | | | | +--------+ + + + + | 06/02/ | Office | Cardiology | Jenny, | | | 2017 | Visit | | ADARSH Santo [address] | | | | | | [place], | | | | | | [place] [address] | | | | | | [phone] | | | | | | | | +--------+ + + + + as of this encounter Visit Diagnoses Not on filein this encounter"
--- OUTSIDE RECORDS SUMMARY | ~2018-05-01 | XMS | Clinical Summary ---
Demographics + + + | Address | [address] [place] [address] [address] | | | [place] [address] | + + + | Home Phone | | + + + | Preferred Language | Unknown | + + + | Marital Status | | + + + | Restoration Affiliation | NRP | + + + [...] | | | | | [place] [address] | | + + + + + Care Team Providers + +------+ + | Care Import Export Clerk Name | Role | Phone | + +------+ + | Chato Matson MD | PP | | + +------+ + Source Comments EULOGIO is fully live on both [facility] Ambulatory and [facility] InPatient.[facility] Allergies No Known Allergies Current Medications [...] resynchronization therapy | 10/17/2017 | | defibrillator (FIVE ROLL REFINER BATCH MIXER-D) | | + + + | Influenza, [...] edema. 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 | | -secretions improving, cough strong [...] stayExtubated 03/22, started on | | [place] R5Wpzyj infusion begun 03/22 for daily goal -1 to -2LAfterload | | reduction for SBC < 130 to prevent flash pulmonary edema | + + + + + + | STEMI (ST elevation myocardial infarction) ([facility]) | 03/15/20 | | | | 17 [...] cath | | lab procedure at [facility]. Was shocked 17 times | [...] | | | HANDY | | | [id number] | | Tejal Pettit MD | | | | | | X / | | | | | | | | /[id number] | | | | | | | | [address] | + +------+--------+ +--------+--------+--------+ Results Not on [...] | PPO | [phone] | [address] [address] [place] | | | CROSS | | | [address] | [place] [address] | | | [employer]ERA | | | | | | | L | | | | | + +--------+ +--------+ + + | MEDICAID [place] | OHP | [phone] | Medica | [phone] [address] [address] | | | PLUS | | id | [phone] | [place] [address] | | | OPEN | | | [...] | Self [birth year] | Home: | [address] | | | al/Fam | | 1956 | [phone] | [address] [place] | | | taiwo | | | [address] | [address] | + +--------+ +--------+ + +
--- OUTSIDE RECORDS SUMMARY | ~2018-05-01 | XMS | Encounter Summary ---
Demographics + + + | Address | [address] | | | [place] [address] | + + + | Home Phone [...] + + | [place] | ECON | [address] | | | | | #[address] | | | | | [address] | | + + + + + Care Team Providers + +------+ + | Care Airport Ramp Attendant Name | Role | Phone | [...] [address] | | | | | [place], | [place], | | | | | [place] [address] | [place] [address] | | | | | [phone] | [phone] | | | | | | | [...] | | | | | | [place] [address] | | | | | | [phone] | | | | | | | | +--------+ + + + + | 05/24/ | Appointment | Sleep Medicine | Sofie Sneed MD | | | 2017 | | | [address] | | | | | | [place] | | | | | | [address] | | | | | | | | +--------+ + + + + | 06/02/ | Office | Cardiology | Jenny, | | | 2017 | Visit | | ADARSH Santo [address] | | | | | | [place] | | | | | | [place] [address] | | | | | | [phone] | | | | | | | | +--------+ + + + + as of this encounter Visit Diagnoses Not on filein this encounter"
--- OUTSIDE RECORDS SUMMARY | ~2018-05-01 | XMS | Encounter Summary ---
Demographics + + + | Address | [address] | | | [place] [address] | + + + | Home Phone [...] + | [place] | ECON | [address] | | | | | #[address] | | | | | [address] | | + + + + + Care Team Providers + +------+ + | Care Software Consultant Name | Role | Phone | [...] + | 02/03/ | Telephone | [facility] | Jenny, | Blood Pressure | | 2017 | | CARDIOLOGY [address] | ADARSH Santo [address] | | | | | [place], | [place], | | | | | [place] [address] | [place] [address] | | | | | [phone] | [phone] | | | | | | | [...] 2017 | Visit | Rehabilitation | [address] | | | | | | [place], | | | | | | [place] [address] | | | | | | [phone] | | | | | | | [...] | | | | | | [place] [address] | | | | | | [phone] | | | | | | | | +--------+ + + + + as of this encounter Visit Diagnoses Not on filein this encounter"
--- OUTSIDE RECORDS SUMMARY | ~2018-05-01 | XMS | Encounter Summary ---
Demographics + + + | Address | [address] | | | [place] [address] | + + + | Home Phone [...] + | [place] | ECON | [address] | | | | | #[place] | | | | | [address] | | + + + + + Care Team Providers + +------+ + | Care Electric Sealing Machine Operator Name | Role | Phone [...] Ischemic | MD Lauren | [address] | | | | | cardiomyopat | [address] | [place], | | | | | hy | [address] | [place] | | | | | Procedures | [place], | [address] | | | | | ECHO | [place] [address] | Phone: | | | | | Complete [place] | Phone: | [phone] | | | | | ECHO HEART | [phone] | Fax: | | | | | XTHORACIC,CO | Fax: | [phone] | | | | | MPLETE W | [phone] | | | | | | DOPPLER [place] | | | | | | [...] | + + + Follow Up (Routine) + +--------+ + + + + | Status | Reason | Specialty | Diagnoses / | Referred By | Referred To | | | | | Procedures | Contact | Contact | + +--------+ + + + + | Authorized | | Cardiology | Diagnoses | [place], | [place], | | | | | | Young Barajas DO | MD Lauren | | | | | Atherosclero | [address] | [address] | | | | | tic heart | [address] | [address] | | | | | disease of | [place], | [place], | | | | | [place] | [place] [address] | [place] [address] | | | | | coronary | Phone: | Phone: | | | | | artery | [phone] | [phone] | | | | | without | Fax: | Fax: | | | | | angina | [phone] | [phone] | | | | | pectoris ST [...] | | | F/U | | | + +--------+ + + + + Encounter Details +--------+---------+ + + + | Date | Type | Department | Care Team | Description | +--------+---------+ + + + | 03/18/ | Office | [facility] | Lauren Figueroa, | Implantable | | 2018 | Visit | CARDIOLOGY [address] | defibrillator | | | | [place], | [place], | reprogramming/check | | | | [place] [address] | [place] [address] | (Primary Dx); ROCK LATHER-D | | | | [phone] | [phone] | (AICD) Medtronic | | | | | | 10/16/17 [facility]; | | | | | | Ischemic [...] + | Blood Pressure | 136/64 | 03/18/2018756 PDT | + + + + | Pulse | 70 | 03/18/2018756 PDT | + + + + | Temperature | - | - | + + + + | Respiratory Rate | 18 | 03/18/2018756 PDT | + + + + | Oxygen Saturation | - | - | + + + + | Inhaled Oxygen | - | - | | Concentration | | | + + + + | Weight | 98.9 kg (218 lb) | 03/18/2018756 PDT | + + + + | Height | 177.8 cm (5' 10") | 03/18/2018756 PDT | + + + + | Body Mass Index | 31.28 | 03/18/2018 0757 PDT | + + + + in this encounter Instructions Patient Instructions - Suzanne Cheng RN - 03/18/2018 0800 PDT Increase lisinopril to 20 mg twice a day Check blood pressure and pulse twice a day for 2 weeks, mail in envelope provided Blood test: Non-fasting Date Due: 1 week after increase of lisinopril Where to go for labs: [facility] Lab- [address] [facility] Echo: Date: Check-In Time: Where to Check In: Follow up appointment: 3-4 weeks Provider: Date: Check-In Time: in this encounter Progress Notes Lauren Figueroa MD - 03/18/2018 0800 PDTFormatting of this note may be different from alie ceron. PATIENT NAME: Bob Will : 1955: AGE: 62 y.o. PRIMARY CARE: Chato Matson MD OUTPATIENT FOLLOW UP VISIT Date of Service: 03/18/2018 HISTORY OF PRESENT ILLNESS: Bob Will is a 62 y.o. male with a history of coronary 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 post recent anterior wall NC, post PTCA and stents of the left main, LAD and LCx on 03/15/17, cardiac shoc k, left atrial appendage thrombus, recent status post stents to , ROCK LATHER-D placement in [facility] on 10/17/2017. He is being seen [...] Patient has [facility], but relates it to the hot weather. Patient has no complaints of chest pain or chest dis comfort both at rest and on exertion. There is no palpitation, dizziness or lightheadedness. Patient has no complaints of ankle or leg swelling. Patient can sleep on one pillow at [facility] without difficulty breathing. MEDICAL, SURGICAL, AND PERSONAL HISTORY Past Medical, Surgical, Family, and Social History are reviewed in EPIC. CURRENT PROBLEMS Patient Active Problem List Diagnosis Acute anterior wall NC Coronary 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 involving [place] coronary artery of [place] heart without angina pectoris Ischemic cardiomyopathy Pulmonary edema ROCK LATHER-D (AICD) Medtronic 10/16/17 [facility] Stecker Implantable defibrillator reprogramming/check H/O atrial flutter Tachycardia GERD (gastroesophageal reflux disease) PAD (peripheral 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) CURRENT MEDICATIONS Current Outpatient Prescriptions Medication Sig Dispense Refill aspirin 81 MG tablet Take 81 mg by mouth Daily. atorvaSTATin (LIPITOR) 80 MG tablet Take 1 tablet by mouth nightly. 30 tablet 5 Cholecalciferol (VITAMIN D-3) 41580 units CAPS Take by mouth Once a [...] RESULTS reviewed during visit today primarily from [facility]: LIPID Lab Results Component Value Date [...] shock requiring IABP, pressor (dopa mine, norepinephrine). [facility] and [facility] were on divert. Patient wasn't transferred to [facility]. B. Echocardiogram 03/17/2017 shows LV ejection fraction is severely de creased, visually estimated left ventricular ejection fraction is 20 - 25%, left ventricular systolic thickening is segmentally abnormal,mildly reduced RV systolic function. Normal R V size, no significant valvular abnormalities seen, compared to the most recent exam dated, 03/15/2017, there is no significant changes C. At [facility], patient had another STEMI code 03/29, [...] to follow up closely with a local publishing agent in [place] . He wias dischargeed with a LifeVest [...] we will tr ansfer the patient to [facility] for consideration of urgent coronary revascularization. J. [...] He is in a class II of [place] [employer] functional class. There is no [...] myocardium in these regions. C. S/P Medtronic ROCK LATHER-D 2-9-18 Dr Darby, [facility]. Ice interrogation today shows one episode [...] week ago. This was after h is NC and at the same time patient was having ventricular tachycardia. He was initiated on amiodarone and then discontinued before discharge. The plan is to monitor through his device and see if this is a problem that needs to be addressed. Patient is not on anticoagulation he was left that way from [facility]. Patient has had several GI bleeds [...] reviewed and edited this note. Krysten Lehman [facility] 03/18/2018 I, Lauren Figueroa MD, personally performed the services described in this documentation, as scribed in my presence and it is both accurate and complete. Krysten Lehman [facility] 03/18/2018 8:01 Electronically signed by: Lauren Figueroa MD [facility] 03/18/2018 Portions of this chart may have been created with [email or web address] voice recognition software. Occasi onal wrong-word or sound-alike substitutions may have occurred due to the inherent canseco itations of voice recognition software. Please read the chart carefully and recognize, using context, where these substitutions have occurred in this encounter Plan of Treatment +--------+ + + + + | Date | Type | Specialty | Care Team | Description | +--------+ + + + + | 05/04/ | Office | Cardiac | Lauren Figueroa, | | | 2017 | Visit | Rehabilitation | MD Jav[address] | | | | | | [place], | | | | | | [place] [address] | | | | | | [phone] | | | | | | | | +--------+ + + + + | 05/24/ | Appointment | Sleep Medicine | Sofie Sneed MD | | | 2017 | | | [address] | | | | | | [place], [place] | | | | | | [address] | | | | | | | | +--------+ + + + + | 06/02/ | Office | Cardiology | Jenny, | | | 2017 | Visit | | ADARSH Santo [address] | | | | | | [place], | | | | | | [place] [address] | | | | | | [phone] | | | | | | | | +--------+ + + + + + +--------+ + + | Name | Priori | Associated Diagnoses | Order Schedule | | | ty | | | + +--------+ + + | Basic Metabolic Panel | Routin | Ischemic | Expected: | | | e | cardiomyopathy | 03/18/2018, Expires: | | | | | 03/18/2019 | + +--------+ + + as of this encounter Procedures [...] results section. | | | | | ROCK LATHER-D (AICD) | | | | | | [...] Number J Patient | | | Number [id number] Date of | | | Study 04/02/2018 Visit Number [id number] | | | Referring | | | Physician [place] AGUILAR Number Date of | | | 1955 | | | Inspector Watch Parts FRANNIE ISAACS [facility] | | | Age 62 year(s) | | | Interpreting [place] | | | ALLIEONG | | | Software Quality Assurance Specialist LAUREN | | | [place], | | | MD | | | Gender Male Nurse | | | | | | Stress Display Specialist Procedure Type of Study TTE procedure: [...] Diastolic: 0.9 cm EF | | | Cwilifieq90% EF Calculated: 32% Miscellaneous Aorta Aortic Root: [...] Diastolic: 0.9 cm | | | EF Lxnrtnawr33% | | | EF Calculated: 32% | [...] J | | | | Patient Number [id number] Date of Study 04/02/2018 | | | | Visit Number [id number] | | | | Referring Physician [place]INA AGUILAR | | Number | | | | Date of 1955 Inspector Watch Parts FRANNIE ISAACS RDCS | | | | Age 62 year(s) Interpreting [place] AGUILAR | | Software Quality Assurance Specialist LAUREN FIGUEROA, | | | | | | Gender Male Nurse | | | | Stress Display Specialist | | | | Procedure | | [...] PW Diastolic: 0.9 cm | | EF Mpvzwbmln20% | | EF Calculated: 32% | | [...] + +---------+ + + Device Interrogation (03/18/2018 0800) + + + | Narrative | Performed At | + + + | Lauren THOMPSON | | MD [place] 03/18/2018 9:26 PATIENT NAME: Bob Santa | Ar[place] Will : 1955: AGE: 62 y.o. ICD | | | Evaluation Report March 18, 2018 Reason for evaluation: | | | routineIndication for ICD: ICD-10-CM ICD-9-CM 1. Implantable | | | defibrillator reprogramming/check Z45.02 V53.32 Device Interrogation | | | 2. ROCK LATHER-D (AICD) Medtronic 10/16/17 [facility] Stecker Z95.810 V45.02 Device | [...] | | |details. Data collected by Kelly N Repoff, RN | | | | | |Underlying [...] implantable cardiac defibrillator | + + | ROCK LATHER-D (AICD) Medtronic 10/16/17 [facility] | + + | Ischemic cardiomyopathy | + + | Other specified forms of chronic ischemic heart disease | + + | Tachycardia | + + | Tachycardia, unspecified | + +
--- OUTSIDE RECORDS SUMMARY | ~2018-05-01 | XMS | Encounter Summary ---
Demographics + + + | Address | [address] | | | [place] [address] | + + + | Home Phone [...] + | [place] | ECON | [address] | | | | | #[address] | | | | | [address] | | + + + + + Care Team Providers + +------+ + | Care Underwriting Assistant Name | Role | Phone | [...] | | | | | unspecified | [address] | [address] | | | | | HF | [place], | [place] | | | | | chronicity, | [place] [address] | [place], [place] | | | | | unspecified | Phone: | [phone] | | | | | heart | [phone] | Phone: | | | | | failure type | Fax: | [phone] | | | | | ([facility]) | [phone] | Fax: | | | | | | | [phone] | + + + + + + [...] | | | | | unspecified | [address] | [address] | | | | | HF | [place], | [place] | | | | | chronicity, | [place] [address] | [place], [place] | | | | | unspecified | Phone: | [address] | | | | | heart | [phone] | Phone: | | | | | failure type | Fax: | [phone] | | | | | ([facility]) | [phone] | Fax: | | | | | | | [phone] | + + + + + + + Encounter Details +--------+---------+ + + + | Date | Type | Department | Care Team | Description | +--------+---------+ + + + | 04/22/ | Office | [facility] | RahulRandy isabel, | Chronic systolic | | 2018 | Visit | MED CTR CARDIAC | [address] [place] | congestive heart | | | | REHABILITATION [address] [place], | failure (HCC) | | | | [address] [place] | [place] [address] | (Primary Dx); | | | | [place] [address] | [phone] | Chronic systolic | | | | [phone] | | heart failure (HCC) | | [...] Notes Maria Esther Fields RN - 04/22/2018 1300 PDTFormatting of this note may be different from the or iginal. [facility] CARDIAC REHABILITATION [address] [place] [address] Cardiac Rehab Evaluation Date: 04/22/2018 Patient Information [...] recent status post stents, CHF, LVEF 30-35%, HEARING AID DISPENSER-D pl acement in [facility] on 10/17/2017. He has recently switched from [...] Healthy Dietary Education Date: 04/22/18 -Referral to Lpn Per Diem: Date: -DVD: Healthy Eating For Life Date: [...] exercise until stable. Date: Range: -Referral to Transformer Assembler Date: Education Points listed below- Date [...] Fields RN, 04/22/2018 14:00 Patient Name: Bob Chaudhary Suman/: 1955/ this encoun ter Plan of Treatment [...] | | | | | | [place] [address] | | | | | | [phone] | | | | | | | | +--------+ + + + + | 05/24/ | Appointment | Sleep Medicine | Sofie Sneed MD | | | 2017 | | | [address] | | | | | | [place] | | | | | | [address] | | | | | | | | +--------+ + + + + | 06/02/ | Office | Cardiology | Jenny, | | | 2017 | Visit | | ADARSH Santo [address] | | | | | | [place], | | | | | | [place] [address] | | | | | | [phone] | | | | | | | | +--------+ + + + + as of this encounter Visit Diagnoses + + | Diagnosis | + + | Chronic systolic congestive heart failure (HCC) - Primary | + + | Chronic systolic heart failure | + + | Chronic systolic heart failure (HCC) | + + | Chronic systolic heart failure | + +
--- OUTSIDE RECORDS SUMMARY | ~2018-05-01 | XMS | Encounter Summary ---
Demographics + + + | Address | [address] | | | [place] [address] | + + + | Home Phone [...] + + | [place] | ECON | [address] | | | | | #[place] | | | | | [address] | | + + + + + Care Team Providers + +------+ + | Care Regulatory Law Specialist Name | Role | Phone | [...] [address] | | | | | [place], | [place], | | | | | [place] [address] | [place] [address] | | | | | [phone] | [phone] | | | | | | | [...] 2017 | Visit | Rehabilitation | [address] [place] | | | | | | [place], | | | | | | [place] [address] | | | | | | [phone] | | | | | | | | +--------+ + + + + | 05/24/ | Appointment | Sleep Medicine | Sofie Sneed MD | | | 2017 | | | [address] | | | | | | [place] | | | | | | [address] | | | | | | | | +--------+ + + + + | 06/02/ | Office | Cardiology | Jenny, | | | 2017 | Visit | | ADARSH Santo [address] | | | | | | [place], | | | | | | [place] [address] | | | | | | [phone] | | | | | | | [...]
--- OUTSIDE RECORDS SUMMARY | ~2018-05-01 | XMS | Encounter Summary ---
Demographics + + + | Address | [address] | | | [place] [address] | + + + | Home Phone [...] + + | [place] | ECON | [address] | | | | | #[place] | | | | | [address] | | + + + + + Care Team Providers + +------+ + | Care Rice Cleaning Machine Tender Name | Role | Phone [...] | CARDIOLOGY [address] | MD [address] | | | | | [place], | [place], | | | | | [place] [address] | [place] [address] | | | | | [phone] | [phone] | | | | | | | [...] 2017 | Visit | Rehabilitation | [address] | | | | | | [place], | | | | | | [place] [address] | | | | | | [phone] | | | | | | | | +--------+ + + + + | 05/24/ | Appointment | Sleep Medicine | Sofie Sneed MD | | | 2017 | | | [address] | | | | | | [place] | | | | | | [address] | | | | | | | | +--------+ + + + + | 06/02/ | Office | Cardiology | Jenny, | | | 2017 | Visit | | ADARSH Santo [address] | | | | | | [place], | | | | | | [place] [address] | | | | | | [phone] | | | | | | | [...]
--- OUTSIDE RECORDS SUMMARY | ~2018-05-01 | XMS | Encounter Summary ---
Demographics + + + | Address | [address] | | | [place] [address] | + + + | Home Phone [...] + | [place] | ECON | [address] | | | | | #[place] | | | | | [address] | | + + + + + Care Team Providers + +------+ + | Care Strategic Account Executive Name | Role | Phone | [...] | Specialty | Sleep | Diagnoses | [place], | [facility] | | | Services | Medicine | Sleep | MD Sofie | Center [address] | | | Required | | apnea, | [address] | [place] | | | | | unspecified | [place] | [place], | | | | | type | [place], [place] | [place] [address] | | | | | Procedures | [address] | Phone: | | | | | [place] POLYSOM | Phone: | [phone] | | | | | 6/>YRS SLEEP | [phone] | Fax: | | | | | W/CPAP 4/> | Fax: | [phone] | | | | | ADDL [place] | [phone] | | | | | | [place] | | | | | | [...] | sleep | [address] | [address] [place] | | | | | apnea) | [place] | [place], | | | | | | [place] | [place] [address] | | | | | | [place] | Phone: | | | | | | [address] | [phone] | | | | | | Phone: | Fax: | | | | | | [phone] | [phone] | | | | | | Fax: | | | | | | | [phone] | | + + + + + + + Encounter Details +--------+---------+ + + + | Date | Type | Department | Care Team | Description | +--------+---------+ + + + | 02/08/ | Office | [facility] [place] | Sofie Sneed MD | Sleep apnea, | | 2018 | Visit | SLEEP DISORDER [address] | [address] | unspecified type | | | | [address] [place] | [place] | (Primary Dx) | | | | [place] [address] | [address] | | | | | [phone] | | | +--------+---------+ + + + [...] when you re asleep. Date Last Reviewed: 04/07/201719995603-7926 [employer]. [address] [place] [address]. All righ ts reserved. This information is [...] types of CPAP. Your doctor or CPAP waste minimization technician will help you decide whic h [...] sleep stage, and snoring. Date Last Reviewed: 04/07/201719991649-4235 [employer] [facility]. [address] [place] [address]. All righ ts reserved. This information is [...] congestion. He says when he was at [facility] for his heart, and he was told [...] tries not to take it regularly ? [place] Sleepiness Scale: 19 out of 24 ( [...] Cor Angio; Surgeon: Monse Ross MD; Location: [facility] CV LAB CARDIAC CATHERIZATION N/A 10/03/2017 Procedure: CV Cor Angio; Surgeon: Delmer Dai MD; Location: [facility] CV LAB ELBOW SURGERY Left GALLBLADDER SURGERY NASAL SEPTUM SURGERY UPPER GASTROINTESTINAL ENDOSCOPY N/A 10/05/2017 Procedure: EGD; Surgeon: Terry Weir MD; Location: [facility] MEDICAL PROCEDURE UNIT ALLERGIES No Known Allergies CURRENT MEDICATIONS Prior to Admission medications Medication Sig Start Date End Date Taking? Authorizing Provider aspirin 81 MG tablet Take 81 mg by mouth Daily. Yes Historical Provider, atorvaSTATin (LIPITOR) 80 MG tablet Take 1 tablet by mouth nightly. 11/10/17 Yes ADARSH Kendrick Cholecalciferol (VITAMIN D-3) 41539 units CAPS Take by mouth Once a [...] Lives with his . 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 discussed di agnosis via polysomnography / swe-ql-hprfre sleep testing. Today, I ordered a split-night [...] this chart may have been created with [employer] voice recognition software. Occasi onal wrong-word or sound-alike substitutions may have occurred due to the inherent canseco itations of voice recognition software. Please read the chart carefully and recognize, using context, where these substitutions have occurred. Dl Matos, Stock Mover - 02/08/2018 0800 PDTFormatting of this note may be diff erent from the original. 02/08/18 0700 [place] Depression Inventory-II Depression Score 7 - Minimal depression Insomnia Severity Index Insomnia Severity Index 14 [place] Sleepiness Scale Sitting and reading 3 Watching [...] 46.49 in this encounter Plan of Treatment +--------+ + + + + | Date | Type | Specialty | Care Team | Description | +--------+ + + + + | 05/04/ | Office | Cardiac | Zoë Figueroaleo, | | | 2017 | Visit | Rehabilitation | [address] [place] | | | | | | [place], | | | | | | [place] [address] | | | | | | [phone] | | | | | | | | +--------+ + + + + | 05/24/ | Appointment | Sleep Medicine | Sofie Sneed MD | | | 2017 | | | [address] | | | | | | [place], [place] | | | | | | [address] | | | | | | | | +--------+ + + + + | 06/02/ | Office | Cardiology | Jenny, | | | 2017 | Visit | | ADARSH Santo [address] | | | | | | [place], | | | | | | [place] [address] | | | | | | [phone] | | | | | | | | +--------+ + + + + + +--------+ + + | Name | Priori | Associated Diagnoses | Order Schedule | | | ty | | | + +--------+ + + | * [facility] Sleep Center - AMB Referral | Routin | Sleep apnea, | Ordered: 02/08/2018 | | | e | unspecified type | | + +--------+ + + as of this encounter Visit Diagnoses + + | Diagnosis | + + | Sleep apnea, unspecified type - Primary | + +
--- OUTSIDE RECORDS SUMMARY | ~2018-05-01 | XMS | Encounter Summary ---
Demographics + + + | Address | [address] | | | [place] [address] | + + + | Home Phone [...] + + | [place] | ECON | [address] | | | | | #[place] | | | | | [address] | | + + + + + Care Team Providers + +------+ + | Care Court Liaison Name | Role | Phone | + [...] [address] | | | | | [place], | [place], | | | | | [place] [address] | [place] [address] | | | | | [phone] | [phone] | | | | | | | [...] | | | | | | [place] [address] | | | | | | [phone] | | | | | | | | +--------+ + + + + | 05/24/ | Appointment | Sleep Medicine | Sofie Sneed MD | | | 2017 | | | [address] | | | | | | [place] | | | | | | [address] | | | | | | | | +--------+ + + + + | 06/02/ | Office | Cardiology | Jenny, | | | 2017 | Visit | | ADARSH Santo [address] | | | | | | [place] | | | | | | [place] [address] | | | | | | [phone] | | | | | | | | +--------+ + + + + as of this encounter Visit Diagnoses Not on filein this encounter"
--- OUTSIDE RECORDS SUMMARY | ~2018-05-01 | XMS | Encounter Summary ---
Demographics + + + | Address | [address] | | | [place] [address] | + + + | Home Phone [...] | Author | [facility] | | | and [place] | + + + | Organization | [facility] | | | and [place] | + + + | Address | Unknown | + + + | Phone | Unavailable | + + + Support + + + + + | Name | Relationship | Address | Phone | + + + + + | [place] Will | ECON | [address] | | | | | #[place] | | | | | [address] | | + + + + + Care Team Providers + +------+ + | Care Recep Name | Role | Phone | + [...] | apnea, | [address] | [place] | | | | | unspecified | ST [place] | [place], | | | | | type | [place], [place] | [place] [address] | | | | | Procedures | [address] | Phone: | | | | | IN POLYSOM | Phone: | [phone] | | | | | 6/>YRS SLEEP | [phone] | Fax: | | | | | W/CPAP 4/> | Fax: | [phone] | | | | | ADDL KATERINA | [phone] | | | | | | ATTND IN | | | | | | [...] + + | 03/03/ | Hospital | [facility] | Sofie Sneed MD | Sleep apnea, | | 2018 - | Encounter | MED CTR SLEEP | [address] | unspecified type | | | | CENTER [address] [place] | [place], [place] | | | 03/04/ | | [place], [place] | [address] | | | 2017 | | [address] | | | | | | [phone] | | | +--------+ + + + [...] | | | | | (VITAMIN D-3) [address] | a week. | | | | [...] | | | | | | [place] [address] | | | | | | [phone] | | | | | | | | +--------+ + + + + | 05/24/ | Appointment | Sleep Medicine | Sofie Sneed MD | | | 2017 | | | [address] | | | | | | [place] | | | | | | [address] | | | | | | | | +--------+ + + + + | 06/02/ | Office | Cardiology | Jenny, | | | 2017 | Visit | | ADARSH Santo [address] | | | | | | [place], | | | | | | [place] [address] | | | | | | [phone] | | | | | | | [...] Sneed | | | 03/07/2018 16:57 [facility] | | | [place] [address] Polysomnogram | | | Report on Bob Will performed on March 03 2800 PATIENT | | | IDENTIFICATION: Bob Will IS a 62 y.o..-year-old male. | | | with a history of coronary 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 post recent anterior wall | | | [place], post PTCA and stents on 03/15/17, [...] sleep study as | | | better. Meat Packager note: patient tried medium dreamwear nasal mask [...] this chart may have been created with [employer] voice | | | recognition software. Occasional [...] this chart may have been created with [employer] voice | | |recognition software. Occasional wrong-word [...] | Sofie Sneed MD - 03/07/2018 1635 [facility] | | [place], [place] [address]Muzrejsysyogw Report on Bob Chaudhary | | Suman performed on March 03 2800PATIENT IDENTIFICATION:Bob Will IS a 62 | | y.o..-year-old male. with a history of coronary 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 post recent anterior wall | | [place], post PTCA and stents on 03/15/17, [...] during sleep study as better. | | Meat Packager note: patient tried medium dreamwear nasal mask [...] may have been | | created with [employer] voice recognition software. Occasional wrong-word or | [...] this chart may have been created with [employer] voice recognition software. Occasi onal wrong-word or [...]
--- OUTSIDE RECORDS SUMMARY | ~2018-05-01 | XMS | Encounter Summary ---
Demographics + + + | Address | [address] | | | [place] [address] | + + + | Home Phone [...] + | [place] | ECON | [address] | | | | | #[place] | | | | | [address] | | + + + + + Care Team Providers + +------+ + | Care Nuclear Officer Name | Role | Phone | [...] | | | | | unspecified | [address] | [address] | | | | | HF | [place], | [place] | | | | | chronicity, | [place] [address] | [place], [place] | | | | | unspecified | Phone: | [phone] | | | | | heart | [phone] | Phone: | | | | | failure type | Fax: | [phone] | | | | | (HCC) | [phone] | Fax: | | | | | | | [phone] | + + + + + + [...] | tic heart | [address] | [address] | | | | | disease of | [place], | [place], | | | | | [place] | [place] [address] | [place] [address] | | | | | coronary | Phone: | Phone: | | | | | artery | [phone] | [phone] | | | | | without | Fax: | Fax: | | | | | angina | [phone] | [phone] | | | | | pectoris ST [...] + | 04/09/ | Office | [facility] | Randy Figueroa, | Coronary artery | | 2018 | Visit | CARDIOLOGY [address] | [address] [place] | disease involving | | | | [place], | [place], | [place] coronary | | | | [place] [address] | [place] [address] | artery of [place] | | | | [phone] | [phone] | heart without angina | | | [...] thrombus, recent status post stents to , MELON PACKER-D placement in [facility] on 10/17/2017. He is being seen [...] Problem List Diagnosis Acute anterior wall [place] Coronary 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 involving [place] coronary artery of [place] heart without angina pectoris Ischemic cardiomyopathy Pulmonary edema MELON PACKER-D (AICD) Medtronic 10/16/17 [facility] Stecker Implantable defibrillator reprogramming/check H/O atrial flutter Tachycardia GERD (gastroesophageal reflux disease) PAD (peripheral 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) CURRENT MEDICATIONS Current Outpatient Prescriptions Medication Sig Dispense Refill aspirin 81 MG tablet Take 81 mg by mouth Daily. atorvaSTATin (LIPITOR) 80 MG tablet Take 1 tablet by mouth nightly. 30 tablet 5 Cholecalciferol (VITAMIN D-3) 30143 units CAPS Take by mouth Once a [...] reviewed during visit today primarily from [facility]: LIPID Lab Results Component Value Date [...] shock requiring IABP, pressor (dopa mine, norepinephrine). [facility] and [facility] were on divert. Patient wasn't transferred to [facility] - [...] there is no significant changes C. At [facility], patient had another STEMI code 03/29, [...] to follow up closely with a local perishable freight inspector in [place] . He wias dischargeed with a LifeVest [...] we will tr ansfer the patient to [facility] for consideration of urgent coronary revascularization. [...] He is in a class I of [place] [employer] functional class. There is no [...] myocardium in these regions. C. S/P Medtronic MELON PACKER-D 10-16-17 Dr Darby, [facility]. Ice interrogation today shows one episode [...] week ago. This was after h is [place] and at the same time patient was having ventricular tachycardia. He was initiated on amiodarone and then discontinued before discharge. The plan is to monitor through his device and see if this is a problem that needs to be addressed. Patient is not on anticoagulation he was left that way from [facility]. Patient has had several GI bleeds [...] reviewed and edited this note. Heather Cui Band Tacker 04/09/2018 I, Randy Figueroa MD, personally performed the services described in this documentation, as scribed in my presence and it is both accurate and complete. Heather Cui, Med Ass t 04/09/2018 8:28 Electronically signed by: Randy Figueroa MD [facility] 04/09/2018 Portions of this chart may have been created with [employer] voice recognition software. Occasi onal wrong-word or [...] | | | | | | [place] [address] | | | | | | [phone] | | | | | | | | +--------+ + + + + | 05/24/ | Appointment | Sleep Medicine | Sofie Sneed MD | | | 2017 | | | [address] | | | | | | [place] | | | | | | [address] | | | | | | | | +--------+ + + + + | 06/02/ | Office | Cardiology | Jenny, | | | 2017 | Visit | | ADARSH Santo [address] | | | | | | [place], | | | | | | [place] [address] | | | | | | [phone] | | | | | | | [...] coronary artery of knik heart without angina | | pectoris - Primary | + + | Ischemic cardiomyopathy | + + | Other specified forms of chronic ischemic heart disease | + + | Heart failure, unspecified HF chronicity, unspecified heart failure type (HCC) | + +
--- OUTSIDE RECORDS SUMMARY | ~2018-05-01 | XMS | Encounter Summary ---
Demographics + + + | Address | [address] | | | [place] [address] | + + + | Home Phone [...] + | [place] Will | ECON | [address] | | | | | #[place] | | | | | [address] | | + + + + + Care Team Providers + +------+ + | Care Home Health Care Worker Name | Role | Phone [...] Ischemic | MD Lauren | [address] | | | | | cardiomyopat | [address] | [place], | | | | | hy | [address] | [place] | | | | | Procedures | [place], | [address] | | | | | ECHO | [place] [address] | Phone: | | | | | Complete [place] | Phone: | [phone] | | | | | ECHO HEART | [phone] | Fax: | | | | | [place] | Fax: | [phone] | | | | | [address]LETE [address] | [phone] | | | | | | [place] | | | | | | [...] Ischemic | MD Lauren | [address] | | | | | cardiomyopat | [address] | [place], | | | | | hy | [address] | [place] | | | | | Procedures | [place], | [address] | | | | | ECHO | [place] [address] | Phone: | | | | | Complete [place] | Phone: | [phone] | | | | | ECHO HEART | [phone] | Fax: | | | | | [place] | Fax: | [phone] | | | | | [address] | [phone] | | | | | | [place] | | | | | | [...] Ischemic | MD Lauren | [address] | | | | | cardiomyopat | [address] | [place], | | | | | hy | [address] | [place] | | | | | Procedures | [place], | [address] | | | | | ECHO | [place] [address] | Phone: | | | | | Complete [place] | Phone: | [phone] | | | | | ECHO HEART | [phone] | Fax: | | | | | [place] | Fax: | [phone] | | | | | MPLETE W | [phone] | | | | | | [place] | | | | | | [...] + + | 04/02/ | Hospital | [facility] | Lauren Figueroa, | Ischemic | | 2018 | Encounter | MED CTR ECHO [address] | [address] | cardiomyopathy | | | | [address] [place] | [address], | | | | | [place] [address] | [place] [address] | | | | | [phone] | [phone] | | | | | | | [...] | | | | | (VITAMIN D-3) [address] | a week. | | | | [...] | | | | | | [place] [address] | | | | | | [phone] | | | | | | | | +--------+ + + + + | 05/24/ | Appointment | Sleep Medicine | Sofie Sneed MD | | | 2017 | | | [address] | | | | | | [place] | | | | | | [address] | | | | | | | | +--------+ + + + + | 06/02/ | Office | Cardiology | Jenny, | | | 2017 | Visit | | ADARSH Santo [address] | | | | | | [place], | | | | | | [place] [address] | | | | | | [phone] | | | | | | | [...] Number J Patient | | | Number [id number] Date of | | | Study 04/02/2018 Visit Number [id number] | | | Referring | | | Physician [place] AGUILAR Number Date of | | | 1955 | | | Keg Raiser FRANNIEAndree ISAACS [facility] | | | Age 62 year(s) | | | Interpreting [place] | | | LAUREN | | | Ware Tester LAUREN | | | [place], | | | | | | Gender Male Nurse | | | | | | Stress Carbon Paste Mixer Operator Procedure Type of Study TTE procedure: [...] Diastolic: 0.9 cm EF | | | Joulkjrlm79% EF Calculated: 32% Miscellaneous Aorta Aortic Root: [...] Diastolic: 0.9 cm | | | EF Qlbjbmwti39% | | | EF Calculated: 32% | [...] | | | Patient Name MIKE VELASQUEZ [facility] Number | | J | | | | Patient Number [id number] Date of Study 04/02/2018 | | | | Visit Number [id number] | | | | Referring Physician CAROLINA AGUILAR | | Number | | | | Date of 1955 Keg Raiser FRANNIE ISAACS RDCS | | | | Age 62 year(s) Interpreting CAR[place]INA AGUILAR | | Ware Tester LAUREN FIGUEROA | | | | | | Gender Male Nurse | | | | Stress Carbon Paste Mixer Operator | | | | Procedure | [...] PW Diastolic: 0.9 cm | | EF Qucvrehmz84% | | EF Calculated: 32% | | [...]
--- OUTSIDE RECORDS SUMMARY | ~2018-05-01 | XMS | Encounter Summary ---
Demographics + + + | Address | [address] | | | [place] [address] | + + + | Home Phone [...] + | [place] Will | ECON | [address] | | | | | #[place] | | | | | [address] | | + + + + + Care Team Providers + +------+ + | Care Tool Repairer Bench Name | Role | Phone | + [...] | | | | | unspecified | [address] | [address] | | | | | HF | [place], | [place] | | | | | chronicity, | [place] [address] | [place], [place] | | | | | unspecified | Phone: | [address] | | | | | heart | [phone] | Phone: | | | | | failure type | Fax: | [phone] | | | | | (HCC) | [phone] | Fax: | | | | | | | [phone] | + + + + + + [...] | tic heart | [address] | [address] | | | | | disease of | [place], | [place], | | | | | [place] | [place] [address] | [place] [address] | | | | | coronary | Phone: | Phone: | | | | | artery | [phone] | [phone] | | | | | without | Fax: | Fax: | | | | | angina | [phone] | [phone] | | | | | pectoris ST [...] + + | 04/09/ | Office | [facility] | Randy Figueroa, | Coronary artery | | 2018 | Visit | CARDIOLOGY [address] | [address] [place] | disease involving | | | | [place], | [place], | [place] coronary | | | | [place] [address] | [place] [address] | artery of [place] | | | | [phone] | [phone] | heart without angina | | | [...] coronary 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 post recent anterior wall [place], post PTCA and stents of the left main, LAD and LCx on 03/15/17, cardiac shoc k, left atrial appendage thrombus, recent status post stents to , GARDEN LABOURER-D placement in [facility] on 10/17/2017. He is being seen today [...] Active Problem List Diagnosis Acute anterior wall [place] Coronary 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 involving [place] coronary artery of [place] heart without angina pectoris Ischemic cardiomyopathy Pulmonary edema GARDEN LABOURER-D (AICD) Medtronic 10/16/17 [facility] Stecker Implantable defibrillator reprogramming/check H/O atrial flutter Tachycardia GERD (gastroesophageal reflux disease) PAD (peripheral 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) CURRENT MEDICATIONS Current Outpatient Prescriptions Medication Sig Dispense Refill aspirin 81 MG tablet Take 81 mg by mouth Daily. atorvaSTATin (LIPITOR) 80 MG tablet Take 1 tablet by mouth nightly. 30 tablet 5 Cholecalciferol (VITAMIN D-3) 09982 units CAPS Take by mouth Once a [...] RESULTS reviewed during visit today primarily from [facility]: LIPID Lab Results Component Value Date LDLEX [...] shock requiring IABP, pressor (dopa mine, norepinephrine). [facility] and [facility] were on divert. Patient wasn't transferred to [facility]. B. [...] no significant changes C. At [facility], patient had another STEMI code 03/29, with [...] to follow up closely with a local food and drug inspector in [place] . He wias dischargeed with a LifeVest [...] wall motion abnormality with thinning and se frnanie hypokinesis of the entire anterior and anteroseptal [...] tr ansfer the patient to [facility] for consideration of urgent coronary revascularization. J. [...] myocardium in these regions. C. S/P Medtronic GARDEN LABOURER-D 10-16-17 Dr Darby, [facility]. Ice interrogation today shows one episode of [...] week ago. This was after h is [place] and at the same time patient was having ventricular tachycardia. He was initiated on amiodarone and then discontinued before discharge. The plan is to monitor through his device and see if this is a problem that needs to be addressed. Patient is not on anticoagulation he was left that way from [facility]. Patient has had several GI bleeds and [...] reviewed and edited this note. Heather Cui Fleet Service Clerk 04/09/2018 I, Randy Figueroa MD, personally performed the services described in this documentation, as scribed in my presence and it is both accurate and complete. Heather Cui, Med Ass t 04/09/2018 8:28 Electronically signed by: Randy Figueroa MD [facility] 04/09/2018 Portions of this chart may have been created with [employer] voice recognition software. Occasi onal wrong-word or [...] | | | | | | [place] [address] | | | | | | [phone] | | | | | | | | +--------+ + + + + | 05/24/ | Appointment | Sleep Medicine | Sofie Sneed MD | | | 2017 | | | [address] | | | | | | [place] | | | | | | [address] | | | | | | | | +--------+ + + + + | 06/02/ | Office | Cardiology | Jenny, | | | 2017 | Visit | | ADARSH Santo [address] | | | | | | [place], | | | | | | [place] [address] | | | | | | [phone] | | | | | | | [...] + + | Coronary 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 involving [place] coronary artery of [place] heart without angina | | pectoris - Primary | + + | Ischemic cardiomyopathy | + + | Other specified forms of chronic ischemic heart disease | + + | Heart failure, unspecified HF chronicity, unspecified heart failure type (HCC) | + +
--- OUTSIDE RECORDS SUMMARY | ~2018-05-01 | XMS | Encounter Summary ---
Demographics + + + | Address | [address] | | | [place] [address] | + + + | Home Phone [...] | + + + + + | [place] | ECON | [address] | | | | | #[place] | | | | | [address] | | + + + + + Care Team Providers + +------+ + | Care Surveyor Geophysical Prospecting Name | Role | Phone | + +------+ + | Chato Matson MD | PCP | | + +------+ + Encounter Details +--------+---------+ + + + | Date | Type | Department | Care Team | Description | +--------+---------+ + + + | 04/27/ | Office | [facility] | Randy Figueroa, | Coronary artery | | 2018 | Visit | MED CTR CARDIAC | MD [address] | disease involving | | | | REHABILITATION [address] | [place], | [place] coronary | | | | [address] [place] | [place] [address] | artery of [place] | | | | [place] [address] | [phone] | heart without angina | | | | [phone] | | pectoris (Primary | | | [...] as of this encounter Progress Notes Cheri Harvey, EMS HELICOPTER PILOT - 04/27/2018 1100 PDTFormatting of this note may be differ ent from the original. [facility] CARDIAC REHABILITATION [address] [place] [address] Cardiac Rehab Date: 04/27/2018 Patient Information Patient Name: Bob Will Date of : 1955 Age: 62 y.o. Encounter Diagnoses Code Name Primary? I25.10 Coronary 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 involving [place] coronary artery of [place] heart without angina pectoris Yes Number of [...] note. Electronically signed by: Cheri Harvey, BARRON, 04/27/2018 13:10 Patient Name: Bob Will/: 1955/ in this [...] | | | | | | [place] [address] | | | | | | [phone] | | | | | | | | +--------+ + + + + | 05/24/ | Appointment | Sleep Medicine | Sofie Sneed MD | | | 2017 | | | [address] | | | | | | [place] | | | | | | [address] | | | | | | | | +--------+ + + + + | 06/02/ | Office | Cardiology | Jenny, | | | 2017 | Visit | | ADARSH Santo [address] | | | | | | [place], | | | | | | [place] [address] | | | | | | [phone] | | | | | | | | +--------+ + + + + as of this encounter Visit Diagnoses + + | Diagnosis | + + | Coronary 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 involving [place] coronary artery of [place] heart without angina | | pectoris - Primary | + +"
--- OUTSIDE RECORDS SUMMARY | ~2018-05-01 | XMS | Encounter Summary ---
Demographics + + + | Address | [address] | | | [place] [address] | + + + | Home Phone [...] + | [place] | ECON | [address] | | | | | #[place] | | | | | [address] | | + + + + + Care Team Providers + +------+ + | Care Waiter/Waitress Head Name | Role | Phone | + [...] + + | 04/06/ | Telephone | [facility] | Carolina Lindarisa, | Blood Pressure | | 2018 | | CARDIOLOGY [address] | [address] [place] | | | | | [place], | [place], | | | | | [place] [address] | [place] [address] | | | | | [phone] | [phone] | | | | | | | [...] | | | | | | [place] [address] | | | | | | [phone] | | | | | | | | +--------+ + + + + | 05/24/ | Appointment | Sleep Medicine | Sofie Sneed MD | | | 2017 | | | [address] | | | | | | [place] | | | | | | [address] | | | | | | | | +--------+ + + + + | 06/02/ | Office | Cardiology | Jenny, | | | 2017 | Visit | | ADARSH Santo [address] | | | | | | [place], | | | | | | [place] [address] | | | | | | [phone] | | | | | | | | +--------+ + + + + as of this encounter Visit Diagnoses Not on filein this encounter"
--- OUTSIDE RECORDS SUMMARY | ~2018-05-01 | XMS | Encounter Summary ---
Demographics + + + | Address | [address] | | | [place] [address] | + + + | Home Phone [...] + + | [place] | ECON | [address] | | | | | #[place] | | | | | [address] | | + + + + + Care Team Providers + +------+ + | Care Transporter Radiology Name | Role | Phone | + +------+ + | Chato Maston MD | PCP | | + +------+ [...] [address] | | | | | [place], | [place], | | | | | [place] [address] | [place] [address] | | | | | [phone] | [phone] | | | | | | | [...] | 05/04/ | Office | Cardiac | Radny Figueroa, | | | 2017 | Visit | Rehabilitation | MD [address] | | | | | | [place], | | | | | | [place] [address] | | | | | | [phone] | | | | | | | | +--------+ + + + + | 05/24/ | Appointment | Sleep Medicine | Sofie Sneed MD | | | 2017 | | | [address] | | | | | | [place] | | | | | | [address] | | | | | | | | +--------+ + + + + | 06/02/ | Office | Cardiology | Jenny, | | | 2017 | Visit | | ADARSH Sanot [address] | | | | | | [place] | | | | | | [place] [address] | | | | | | [phone] | | | | | | | | +--------+ + + + + as of this encounter Visit Diagnoses Not on filein this encounter"
--- OUTSIDE RECORDS SUMMARY | ~2018-05-01 | XMS | Encounter Summary ---
Demographics + + + | Address | [address] | | | [place] [address] | + + + | Home Phone [...] + | [place] | ECON | [address] | | | | | #[address] | | | | | [address] | | + + + + + Care Team Providers + +------+ + | Care Magazine Writer Name | Role | Phone | + [...] Ischemic | MD Lauren | [address] | | | | | cardiomyopat | [address] | [place], | | | | | hy | [address] | [place] | | | | | Procedures | [place], | [address] | | | | | ECHO | [place] [address] | Phone: | | | | | Complete [place] | Phone: | [phone] | | | | | ECHO HEART | [phone] | Fax: | | | | | XTHORACIC,CO | Fax: | [phone] | | | | | MPLETE W | [phone] | | | | | | DOPPLER [...] | Atherosclero | [address] | [address] | | | | | tic heart | [address] | [address] | | | | | disease of | [place], | [place], | | | | | [place] | [place] [address] | [place] [address] | | | | | coronary | Phone: | Phone: | | | | | artery | [phone] | [phone] | | | | | without | Fax: | Fax: | | | | | angina | [phone] | [phone] | | | | | pectoris ST [...] + + | 03/18/ | Office | [facility] | Lauren Figueroa, | Implantable | | 2018 | Visit | CARDIOLOGY [address] | [address] [place] | defibrillator | | | | [place], | [place], | reprogramming/check | | | | [place] [address] | [place] [address] | (Primary Dx); STREET CAR MECHANIC-D | | | | [phone] | [phone] | (AICD) Medtronic | | | | | | 10/16/17 [facility]; | | | | | | Ischemic [...] of lisinopril Where to go for labs: [facility]- [address] [facility] Echo: Date: Check-In Time: Where to [...] thrombus, recent status post stents to , STREET CAR MECHANIC-D placement in [facility] on 10/17/2017. [...] Patient has been having problems sleeping at [facility], but relates it to the hot weather. Patient has no complaints of chest pain or chest dis comfort both at rest and on exertion. There is no palpitation, dizziness or lightheadedness. Patient has no complaints of ankle or leg swelling. Patient can sleep on one pillow at [facility] without difficulty breathing. MEDICAL, SURGICAL, AND PERSONAL HISTORY Past Medical, Surgical, Family, and Social History are reviewed in EPIC. 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 atorvaSTATin (LIPITOR) 80 MG tablet Take 1 tablet by mouth nightly. 30 tablet 5 Cholecalciferol (VITAMIN D-3) 77111 units CAPS Take by mouth Once a [...] RESULTS reviewed during visit today primarily from [facility]: LIPID Lab Results Component Value [...] shock requiring IABP, pressor (dopa mine, norepinephrine). [facility] and [facility] were on divert. Patient wasn't transferred to [facility]. B. Echocardiogram 03/17/2017 shows LV [...] to follow up closely with a local activity manager in [place] . He wias dischargeed with a LifeVest [...] He is in a class II of [place] [employer] functional class. There [...] myocardium in these regions. C. S/P Medtronic STREET CAR MECHANIC-D 2-9-18 Dr Darby, [facility]. Ice interrogation [...] reviewed and edited this note. Krysten Lehman [facility] 03/18/2018 I, Lauren Figueroa MD, personally performed the services described in this documentation, as scribed in my presence and it is both accurate and complete. Krysten Lehman [facility] 03/18/2018 8:01 Electronically signed by: Lauren Figueroa MD [facility] 03/18/2018 Portions of this chart may have been created with Lumate voice recognition software. Occasi onal wrong-word or [...] Visit | Rehabilitation | MD Javid [address] [place] | | | | | | [place], | | | | | | [place] [address] | | | | | | [phone] | | | | | | | | +--------+ + + + + | 05/24/ | Appointment | Sleep Medicine | Sofie Sneed MD | | | 2017 | | | [address] | | | | | | [place], [place] | | | | | | [address] | | | | | | | | +--------+ + + + + | 06/02/ | Office | Cardiology | Jenny, | | | 2017 | Visit | | ADARSH Santo [address] | | | | | | [place], | | | | | | [place] [address] | | | | | | [phone] | | | | | | | [...] results section. | | | | | STREET CAR MECHANIC-D (AICD) | | | | | | [...] Number J Patient | | | Number [id number] Date of | | | Study 04/02/2018 Visit Number [id number] | | | Referring | | | Physician CAROLINA AGUILAR Number Date of | | | 1955 | | | Product Distribution Specialist FRANNIE ISAACS [facility] | | | Age 62 year(s) | | | Interpreting CAROLINA | | | ALLIEONG | | | Marketing Business Analyst LAUREN | | | [place], | | | MD | | | Gender Male Nurse | | | | | | Stress Gang Drill Operator Procedure Type of Study TTE procedure: [...] Diastolic: 0.9 cm EF | | | Jprfafymw24% EF Calculated: 32% Miscellaneous Aorta Aortic Root: [...] Diastolic: 0.9 cm | | | EF Olsdwtbzm52% | | | EF Calculated: 32% | [...] J | | | | Patient Number [id number] Date of Study 04/02/2018 | | | | Visit Number [id number] | | | | Referring Physician CAROLINA AGUILAR | | Number | | | | Date of 1955 Product Distribution Specialist FRANNIE ISAACS RDCS | | | | Age 62 year(s) Interpreting CAROLINA AGUILAR | | Marketing Business Analyst LAUREN FIGUERAO, | | | | | | Gender Male Nurse | | | | Stress Gang Drill Operator | | | | Procedure | [...] PW Diastolic: 0.9 cm | | EF Xegfywpag00% | | EF Calculated: 32% | | [...] V53.32 Device Interrogation | | | 2. STREET CAR MECHANIC-D (AICD) Medtronic 10/16/17 [facility] Stecker Z95.810 V45.02 Device | | | [...] implantable cardiac defibrillator | + + | STREET CAR MECHANIC-D (AICD) Medtronic 10/16/17 [facility] | + + | Ischemic cardiomyopathy | + + | Other specified forms of chronic ischemic heart disease | + + | Tachycardia | + + | Tachycardia, unspecified | + +
--- OUTSIDE RECORDS SUMMARY | ~2018-05-01 | XMS | Clinical Summary ---
Demographics + + + | Address | [address] [place] [address] [address] | | | [place] [address] | + + + | Home Phone | | + + + | Preferred Language | Unknown | + + + | Marital Status | | + + + | Mosque Affiliation | NRP | + + + [...] | + + + + + | NANA MCKEON | ECON | [address] | | | | | [place] [address] | | + + + + + Care Team Providers + +------+ + | Care Rubbish Collection Supervisor Name | Role | Phone | + +------+ + | Chato Matson MD | PP | | + +------+ + Source Comments [facility] is fully live on both [facility] and [facility] InPatient.[facility] Allergies No [...] resynchronization therapy | 10/17/2017 | | defibrillator (DEPOSIT REFUND CLERK-D) | | + + + | Influenza, [...] edema. 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 | | -secretions improving, cough [...] stayExtubated 03/22, started on | | NC Y7Ckbsl infusion begun 03/22 for daily goal -1 to -2LAfterload | | reduction for SBC < 130 to prevent flash pulmonary edema | + + + + + + | STEMI (ST elevation myocardial infarction) ([facility]) | 03/15/20 | | | [...] during cath | | lab procedure at [facility]. Was shocked 17 times | | [...] | | | HANDY | | | [id number] | | Tejal Pettit MD | | | | | | X / | | | | | | | | /[address] | | | | | | | | [address] | + +------+--------+ +--------+--------+--------+ Results Not on [...] | PPO | [phone] | [address] [address] [place] | | | CROSS | | | [address] | [place] [address] | | | FEDERA | | | | | | | L | | | | | + +--------+ +--------+ + + | [place]ICAID [place] | OHP | [phone] | Medica | [phone] [address] [address] | | | PLUS | | id | [phone] | [place] [address] | | | OPEN | | | [...] | Self | [birth year] | Home: | [address] | | | al/Fam | | 1956 | [phone] | [address] [place] | | | taiwo | | | [address]28 | [address] | + +--------+ +--------+ + +
--- OUTSIDE RECORDS SUMMARY | ~2018-05-01 | XMS | Encounter Summary ---
Demographics + + + | Address | [address] | | | [place] [address] | + + + | Home Phone [...] + | [place] Will | ECON | [address] | | | | | #[address] | | | | | [address] | | + + + + + Care Team Providers + +------+ + | Care Adult Basic Studies Teacher Name | Role | Phone | [...] + | 02/03/ | Telephone | [facility] | Jenny, | Blood Pressure | | 2017 | | CARDIOLOGY [address] | ADARSH Santo [address] | | | | | [place], | [place], | | | | | [place] [address] | [place] [address] | | | | | [phone] | [phone] | | | | | | | [...] | | | | | | [place] [address] | | | | | | [phone] | | | | | | | [...] | | | | | | [place] [address] | | | | | | [phone] | | | | | | | | +--------+ + + + + as of this encounter Visit Diagnoses Not on filein this encounter"
--- OUTSIDE RECORDS SUMMARY | ~2018-05-01 | XMS | Encounter Summary ---
Demographics + + + | Address | [address] | | | [place] [address] | + + + | Home Phone [...] + + | [place] | ECON | [address] | | | | | #[place] | | | | | [address] | | + + + + + Care Team Providers + +------+ + | Care Photographic Developer And Printer Name | Role | Phone | [...] CTR CARDIAC | MD [address] | disease involving | | | | REHABILITATION [address] [place] [place], | [place] coronary | | | | [address] [place] | [place] [address] | artery of [place] | | | | [place] [address] | [phone] | heart without angina | | | | [phone] | | pectoris (Primary | | | [...] of this encounter Progress Notes Cheri Harvey, VICE PRESIDENT SALES AND MARKETING - 04/27/2018 1100 PDTFormatting of this note may be differ ent from the original. [facility] CARDIAC REHABILITATION [address] [place] [address] Cardiac Rehab Date: 04/27/2018 Patient Information Patient Name: Bob Will Date of : 1955 Age: 62 y.o. Encounter Diagnoses Code Name Primary? I25.10 Coronary 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 involving [place] coronary artery of [place] heart without angina pectoris Yes Number of [...] | | | | | | [place] [address] | | | | | | [phone] | | | | | | | | +--------+ + + + + | 05/24/ | Appointment | Sleep Medicine | Sofie Sneed MD | | | 2017 | | | [address] | | | | | | [place] | | | | | | [address] | | | | | | | | +--------+ + + + + | 06/02/ | Office | Cardiology | Jenny, | | | 2017 | Visit | | ADARSH Santo [address] | | | | | | [place], | | | | | | [place] [address] | | | | | | [phone] | | | | | | | | +--------+ + + + + as of this encounter Visit Diagnoses + + | Diagnosis | + + | Coronary 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 involving [place] coronary artery of [place] heart without angina | | pectoris - Primary | + +"
--- OUTSIDE RECORDS SUMMARY | ~2018-05-01 | XMS | Encounter Summary ---
Demographics + + + | Address | [address] | | | [place] [address] | + + + | Home Phone [...] + | [place] | ECON | [address] | | | | | #[address] | | | | | [address] | | + + + + + Care Team Providers + +------+ + | Care Waist Presser Name | Role | Phone | + [...] | | | | | unspecified | [address] | [address] | | | | | HF | [place], | [place] | | | | | chronicity, | [place] [address] | [place], [place] | | | | | unspecified | Phone: | [address] | | | | | heart | [phone] | Phone: | | | | | failure type | Fax: | [phone] | | | | | ([facility]) | [phone] | Fax: | | | | | | | [phone] | + + + + + + [...] | | | | | unspecified | [address] | [address] | | | | | HF | [place], | [place] | | | | | chronicity, | [place] [address] | [place], [place] | | | | | unspecified | Phone: | [address] | | | | | heart | [phone] | Phone: | | | | | failure type | Fax: | [phone] | | | | | ([facility]) | [phone] | Fax: | | | | | | | [phone] | + + + + + + + Encounter Details +--------+---------+ + + + | Date | Type | Department | Care Team | Description | +--------+---------+ + + + | 04/22/ | Office | [facility] | RahulRandy isabel, | Chronic systolic | | 2018 | Visit | MED CTR CARDIAC | [address] | congestive heart | | | | REHABILITATION [address] | [address] [place], | failure (HCC) | | | | [address] [place] | [place] [address] | (Primary Dx); | | | | [place] [address] | [phone] | Chronic systolic | | | | [phone] | | heart failure (HCC) | | [...] may be different from the or iginal. 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 He has recently switched from [...] Healthy Dietary Education Date: 04/22/18 -Referral to Order Taker: Date: -DVD: Healthy Eating For Life Date: [...] exercise until stable. Date: Range: -Referral to Group Exercise Instructor Date: Education Points listed below- Date Completed: [...] [place], | | | | | | [place] [address] | | | | | | [phone] | | | | | | | | +--------+ + + + + | 05/24/ | Appointment | Sleep Medicine | Sofie Sneed MD | | | 2017 | | | [address] | | | | | | [place] | | | | | | [address] | | | | | | | | +--------+ + + + + | 06/02/ | Office | Cardiology | Jenny, | | | 2017 | Visit | | ADARSH Santo [address] | | | | | | [place], | | | | | | [place] [address] | | | | | | [phone] | | | | | | | [...]
--- OUTSIDE RECORDS SUMMARY | ~2018-05-01 | XMS | Encounter Summary ---
Demographics + + + | Address | [address] | | | [place] [address] | + + + | Home Phone [...] + | [place] | ECON | [address] | | | | | #[address] | | | | | [address] | | + + + + + Care Team Providers + +------+ + | Care Obedience Trainer Name | Role | Phone | [...] | apnea, | [address] | [place] | | | | | unspecified | [place] | [place], | | | | | type | [place], [place] | [place] [address] | | | | | Procedures | [address] | Phone: | | | | | OR POLYSOM | Phone: | [phone] | | | | | 6/>YRS SLEEP | [phone] | Fax: | | | | | W/CPAP 4/> | Fax: | [phone] | | | | | ADDL [place] | [phone] | | | | | | ATTND OR | | | | | | [...] | sleep | [address] | [address] [place] | | | | | apnea) | [place] | [place], | | | | | | [place] | [place] [address] | | | | | | [place] | Phone: | | | | | | [address] | [phone] | | | | | | Phone: | Fax: | | | | | | [phone] | [phone] | | | | | | Fax: | | | | | | | [phone] | | + + + + + + + Encounter Details +--------+---------+ + + + | Date | Type | Department | Care Team | Description | +--------+---------+ + + + | 02/08/ | Office | [facility] [place] | Sofie Sneed MD | Sleep apnea, | | 2018 | Visit | SLEEP DISORDER [address] | [address] | unspecified type | | | | [address] [place] | [place] | (Primary Dx) | | | | [place] [address] | [address] | | | | | [phone] | | | +--------+---------+ + + + [...] when you re asleep. Date Last Reviewed: 04/07/201719999683-2590 [employer]. [address] [place] [address]. All righ ts reserved. This information is [...] types of CPAP. Your doctor or CPAP converting technician will help you decide whic h [...] sleep stage, and snoring. Date Last Reviewed: 04/07/201719990173-2699 [employer]. [address] [place] [address]. All righ ts reserved. This information is [...] 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 pos t recent anterior wall [place], post PTCA and stents on 03/15/17, cardiac [...] congestion. He says when he was at [facility] for his heart, and he was told [...] tries not to take it regularly ? [place] Sleepiness Scale: 19 out of 24 ( [...] Medical History: Diagnosis Date Acute anterior wall [place] (HCC) 04/03/2017 Angiography and stent 03/15/2017 successful [...] Angio; Surgeon: Monse Ross MD; Location: [facility] CV LAB CARDIAC CATHERIZATION N/A 10/03/2017 Procedure: CV Cor Angio; Surgeon: Delmer Dai MD; Location: [facility] CV LAB ELBOW SURGERY Left GALLBLADDER SURGERY NASAL SEPTUM SURGERY UPPER GASTROINTESTINAL ENDOSCOPY N/A 10/05/2017 Procedure: EGD; Surgeon: Terry Weir MD; Location: [facility] MEDICAL PROCEDURE UNIT ALLERGIES No Known Allergies CURRENT MEDICATIONS Prior to Admission medications Medication Sig Start Date End Date Taking? Authorizing Provider aspirin 81 MG tablet Take 81 mg by mouth Daily. Yes Historical Provider, atorvaSTATin (LIPITOR) 80 MG tablet Take 1 tablet by mouth nightly. 11/10/17 Yes ADARSH Kendrick Cholecalciferol (VITAMIN D-3) [address] units CAPS Take by mouth Once a [...] Lives with his . 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 discussed di agnosis via polysomnography / yaz-ew-htecph sleep testing. Today, I ordered a split-night [...] this chart may have been created with [employer] voice recognition software. Occasi onal wrong-word or sound-alike substitutions may have occurred due to the inherent canseco itations of voice recognition software. Please read the chart carefully and recognize, using context, where these substitutions have occurred. Dl Matos, Agricultural Loan Officer - 02/08/2018 0800 PDTFormatting of this note may be diff erent from the original. 02/08/18 0700 [place] Depression Inventory-II Depression Score 7 - Minimal depression Insomnia Severity Index Insomnia Severity Index 14 [place] Sleepiness Scale Sitting and reading 3 Watching [...] 2017 | Visit | Rehabilitation | [address] [place] | | | | | | [place], | | | | | | [place] [address] | | | | | | [phone] | | | | | | | | +--------+ + + + + | 05/24/ | Appointment | Sleep Medicine | Sofie Sneed MD | | | 2017 | | | [address] | | | | | | [place], [place] | | | | | | [address] | | | | | | | | +--------+ + + + + | 06/02/ | Office | Cardiology | Jenny, | | | 2017 | Visit | | ADARSH Santo [address] | | | | | | [place], | | | | | | [place] [address] | | | | | | [phone] | | | | | | | | +--------+ + + + + + +--------+ + + | Name | Priori | Associated Diagnoses | Order Schedule | | | ty | | | + +--------+ + + | * [facility] - [facility]B Referral | Routin | Sleep apnea, | Ordered: 02/08/2018 | | | e | unspecified type | | + +--------+ + + as of this encounter Visit Diagnoses + + | Diagnosis | + + | Sleep apnea, unspecified type - Primary | + +
[2018-05-01] MEDS ORDERED: FUROSEMIDE20 MG PO (03:50)
[2018-05-01] MEDS ORDERED: ENTRESTO 49 MG1 EACH PO (03:51)
[2018-05-01] MEDS ORDERED: MULTI VITAMIN1 EACH PO (03:54)
--- NOTE | 2018-05-01 16:57 | EKG ---
[facility] [address] [place] [place] [address] Signed Atrial-sensed ventricular-paced rhythm with occasional premature ventricular complexes Abnormal ECG When compared with ECG of 17-APR-2018 06:31, Vent. rate has increased BY 4 BPM Confirmed by KIMMIE GONZALEZ MD ([id number]) on 05/01/2018 4:57:10 PM Electronically Signed By: KIMMIE GONZALEZ MD 05/01/18 1657 PATIENT NAME: RON MCKEON Electrocardiogram DATE OF : 53 PHYSICIAN: KIMMIE GONZALEZ MD REPORT #: [id number] REPORT IS CONFIDENTIAL AND NOT TO BE RELEASED WITHOUT AUTHORIZATION
== END 2018-05-01 06:47 | disposition short-term general hospital (02) ==
LOC: ED 03:23
DX: I21.4 Non-ST elevation (NSTEMI) myocardial infarction (principal); I50.9 Heart failure, unspecified; Z87.891 Personal history of nicotine dependence; Z79.82 Long term (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; Z79.899 Other long term (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
CPT/HCPCS: 71045; 80053; 83880; 84484; 85025; 93005; 93010; 96372; 96374; 99285; J1650

== ENCOUNTER 2018-10-16 06:03 | Observation (INO) | payer OTHER ==
[~2018-10-16] VITALS: Ht 175.3 cm; Wt 96.4 kg
[~2018-10-16 06:03] MED LIST changes: +AMIODARONE HCL200 MG PO; +ENTRESTO 24 MG1 EACH PO; +ENTRESTO 49 MG1 EACH PO; +ENTRESTO 97 MG1 EACH PO; -MELATIN3 MG PO; +MELATONIN10 M2 PO; +MULTI VITAMIN1 EACH PO; +PREDNISONE20 MG PO; +SPIRONOLACTONE25 MG PO; +VALIUM5 MG PO; +VENTOLIN HFA18 GM INH
--- OUTSIDE RECORDS SUMMARY | 2018-10-16 06:06 | XMS ---
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 Security Medical Education Specialist Events No recent Security Events currently on file CRITERIA MET - Group Notification - 6 ED Visits in 6 Months - [facility] - Has Care Guidelines - PDMP CARE PROVIDERS KAREN AYALA Family Medicine: Sports Medicine 06/22/2018-Current PHONE: Unknown KAREN AYALA Primary Care 10/22/2015-Current PHONE: Unknown Ananda has no Care Guidelines for this patient. Care History Medical/Surgical 12/07/2017 [facility] - Patient is currently utilizing PCP Dr Matson and has been referred to a receptionist clerk. - All chronic conditions please refer to PCP. Care Recommendation: This patient has had 5 or more Emergency Department visits in the last 12 months. Patient requires education on the scope and purpose of the ED as an acute care provider not a Primary Care Provider and should not be utilized for chronic conditions. If patient returns to ED please contact Community Health WorkerLamar at [phone]. These are guidelines and the provider should exercise clinical judgment when providing care. E.D. VISIT COUNT (12 MO.) 1 [facility] 1 [facility] 11 [facility] Abdullahi TOTAL 13 NOTE: Visits indicate total known visits. ED/UCC VISIT TRACKING (12 MO.) 10/16/2018 06:03 [facility] [place] TYPE: Emergency COMPLAINT: - SOB 08/26/2018 11:00 [facility] Janine LuiGeorgi [facility] TYPE: Emergency DIAGNOSES: - low bp - Adverse effect of beta-adrenoreceptor antagonists, initial encounter - Weakness - Hypotension 08/18/2018 00:07 [facility] TYPE: Emergency COMPLAINT: - SOB DIAGNOSES: - Hypertensive heart disease with heart failure - Disorder of kidney and ureter, unspecified - Personal history of nicotine dependence - Other penitentiary (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 - Heart failure, unspecified - Shortness of breath - Old myocardial infarction - Chronic obstructive pulmonary disease with (acute) exacerbation - Pure hypercholesterolemia, unspecified 08/09/2018 09:56 [facility] TYPE: Emergency COMPLAINT: - L HIP PAIN/NO INJURY DIAGNOSES: - Pain in left hip - Sciatica, left side - Pure hypercholesterolemia, unspecified - Essential (primary) hypertension - Other penitentiary (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 - Old myocardial infarction 06/26/2018 06:43 [facility] [place] TYPE: Emergency COMPLAINT: - SOB DIAGNOSES: - Heart failure, unspecified - Shortness of breath - Hypertensive heart disease with heart failure - Chronic obstructive pulmonary disease with (acute) exacerbation - Other termite control servicer (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 06/17/2018 02:41 [facility] TYPE: Emergency COMPLAINT: - SOB DIAGNOSES: - Other termite control servicer (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 - Dyspnea, unspecified - Essential (primary) hypertension - Presence of coronary angioplasty implant and graft - 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 manager (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 - Personal history of nicotine dependence - Shortness of breath 05/01/2018 07:47 [facility] TYPE: Emergency DIAGNOSES: - Chest pain, unspecified - Non-ST elevation (NSTEMI) myocardial infarction - Acute pulmonary edema - Shortness of Breath 05/01/2018 03:23 [facility] Davies TYPE: Emergency COMPLAINT: - SOB DIAGNOSES: - Shortness of breath - 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 manager (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 - Non-ST elevation (NSTEMI) myocardial infarction - Heart failure, unspecified - Other termite control servicer (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 - Personal history of nicotine dependence 04/17/2018 06:31 [facility] Barboza[facility] Dyne [place] TYPE: Emergency COMPLAINT: - CHEST PAIN DIAGNOSES: - Personal history of nicotine dependence - Chest pain, unspecified - Precordial pain 01/12/2018 21:19 [facility] Mill[facility]anda [facility] [place] TYPE: Emergency COMPLAINT: - NECK PAIN,FLUTTERING HEARTBEAT DIAGNOSES: - Palpitations - 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 manager (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 - Other termite control servicer (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 - Personal history of nicotine dependence - Essential (primary) hypertension - Cervicalgia 12/16/2017 11:59 [facility] Millanony [facility]ina [place] TYPE: Emergency COMPLAINT: - COUGH DIAGNOSES: - Other termite control servicer (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 - CUSTODIAL (CURRENT) USE OF ORAL HYPOGLYCEMIC DRUGS - Essential (primary) hypertension - 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 manager (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 - Personal history of nicotine dependence - Bronchitis, not specified as acute or chronic - Old myocardial infarction - PURE HYPERCHOLESTEROLEMIA, UNSPECIFIED - Cough - 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 manager (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 of oral hypoglycemic drugs - Pure hypercholesterolemia, unspecified 12/04/2017 22:04 [facility] [place] TYPE: Emergency COMPLAINT: - SOB DIAGNOSES: - Shortness of breath - Atherosclerotic heart disease of [place] coronary artery without angina pectoris - Heart failure, unspecified - 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 manager (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 - Chronic pulmonary edema - PURE HYPERCHOLESTEROLEMIA, UNSPECIFIED - Personal history of nicotine dependence - Hypertensive heart disease with heart failure - Other penitentiary (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 - alf (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 of oral hypoglycemic drugs - Pure hypercholesterolemia, unspecified - CUSTODIAL (CURRENT) USE OF ORAL HYPOGLYCEMIC DRUGS - Old myocardial infarction 11/13/2017 01:28 [facility] [place] TYPE: Emergency COMPLAINT: - SOB INPATIENT VISIT TRACKING (12 MO.) 05/13/2018 16:21 [facility] TYPE: Cardiology DIAGNOSES: - Heart failure, unspecified - Atherosclerotic heart disease of [place] coronary artery without angina pectoris - Family history of other specified conditions - Atherosclerotic heart disease of [place] coronary artery with other forms of angina pectoris - Chronic systolic (congestive) heart failure - Coronary Artery Disease - Other forms of angina pectoris - Ischemic cardiomyopathy - Other forms of dyspnea - Essential (primary) hypertension - Presence of automatic (implantable) cardiac defibrillator 05/01/2018 07:47 [facility] Bobby [facility] TYPE: General Medicine DIAGNOSES: - Acute pulmonary edema - Non-ST elevation (NSTEMI) myocardial infarction - Chest pain, unspecified - Illness, unspecified [email or web address]
--- NOTE | 2018-10-16 11:38 | NUR ---
COMPLETED CHECK IN FOR PATIENT RON COLLAZOOBERTS. PATIENT LUNG SOUNDS WERE CLEAR. HEART SOUNDS WERE VERY DISTANT. PATIENT HAD COMPLAINTS OF PAIN DURING ASSESSMENT. PATIENTS NECK PAIN WAS A 7/10 HIS PREFERRABLE LEVEL IS A 5/10. PATIENT IS ABLE TO AMBULATE ON HIS OWN. DURING THE VISIT WAS MAKING FREQUENT CHANGES IN POSITIONS FROM SITTING TO STANDING POSITIONS WITH NO DIFFICULTY. PATIENT WAS INFORMED ABOUT FLUID RESTRICTION, CALL LIGHTS, AND TV REMOTE. PATIENT WAS GIVEN 300ML OF WATER AND 100ML OF COFFEE AT END OF ASSESSMENT. FLUID RESTRICTION FOR THE DAY IS 1500 ML. WILL CONTINUE TO MONITOR I&O. PATIENT STATED THEY HAD NO QUESTIONS OR CONCERNS AT END OF CHECK IN.
--- NOTE | 2018-10-16 13:00 | NUR ---
PRN NORCO GIVEN AT THIS TIME FOR PT'S CHRONIC NECK PAIN. PT HAS JUST FINISHED HIS LUNCH; ADEQUATE APPETITE; REMAINS WELL UNDER HIS FLUID RESTRICTION AND UNDERSTANDS HIS LIMITS. PT REMAINS PLEASANT AND COOPERATIVE, WITH NO QUESTIONS OR CONCERNS. MED REC STILL NEEDS TO BE COMPLETED. WILL FOLLOW UP ON THIS. CALL LIGHT WITHIN REACH. WILL CONTINUE TO MONITOR.
--- NOTE | 2018-10-16 13:16 | EKG ---
[facility] [address] [place] [address] Signed Atrial-sensed ventricular-paced rhythm with prolonged AV conduction Abnormal ECG When compared with ECG of 18-AUG-2018 00:30, Vent. rate has increased BY 7 BPM Confirmed by KIMMIE GONZALEZ MD ([id number]) on 10/16/2018 1:16:01 PM Electronically Signed By: KIMMIE GONZALEZ MD 10/16/18 1316 PATIENT NAME: RON MCKEON Electrocardiogram DATE OF : 53 PHYSICIAN: KIMMIE GONZALEZ MD REPORT #: [id number] REPORT IS CONFIDENTIAL AND NOT TO BE RELEASED WITHOUT AUTHORIZATION
--- NOTE | 2018-10-16 14:03 | NUR ---
PT SITTING UP IN CHAIR, DENIES SOB, NAUSEA OR PAIN. PT REPORTS HAVING A DRY NOSE AND STATES HE USES HUMIDIFIED O2 CHRONICALLY AT HOME. HUMIDIFICATION ADDED TO WALL O2 FOR COMFORT. ASSESSMENT COMPLETED. PT EDUCATED ON POC, ALL QUESTIONS ANSWERED AND PT DENIES HAVING ANY FURTHER CONCERNS OR REQUESTS. PT NOW GOING OVER MED REC WITH PHARMACIST. CALL LIGHT AND PERSONAL BELONGINGS IN REACH.
[2018-10-16] MEDS ORDERED: TOPROL XL50 MG PO (14:25)
[2018-10-16] MEDS ORDERED: PACERONE200 MG PO (14:27)
--- NOTE | 2018-10-16 16:15 | NUR ---
PT SITTING UP IN CHAIR, STATES CHRONIC NECK PAIN IS TOLERABLE AT 7/10. PT DENIES SOB OR ANY OTHER SYMPTOMS. PT EXPRESSES THAT HE WOULD LIKE TO GO FOR A WALK SOON HE TENDS TO GET STIFF IF HE DOESN'T STAY ACTIVE. WILL AMBULATE WITH PT SOON. CALL LIGHT AND H20 IN REACH. PT IS COMPLIANT AND TOLERATES FLUID RESTRICTION WELL. CALL LIGHT AND H20 IN REACH.
--- NOTE | 2018-10-16 16:27 | NUR ---
CHECKED IN WITH PATIENT AT HOURLY ROUNDING. COMPLETED 1600 PHYSICAL ASSESSMENT. LUNG SOUNDS WERE CLEAR AND AUDIBLE. LESS ABDOMINAL DISTENSION THAN DURING 1200 ASSESSMENT. PATIENT STATED THAT IN THE PREVIOUS FEW DAYS HE HAD BEEN EXPERIENCING LOTS OF GAS. SPOKE WITH PATIENT ABOUT HIS PAIN. PATIENT STATED THAT WHILE AT HOME ALONG WITH MEDICATIONS HE MAKES AN EFFORT TO GET AROUND THE HOUSE AND DO WALKING IT HELPS RELIEVE HIS PAIN. SITTING FOR LONG PERIODS OF TIME TENDS TO INCREASE HIS NECK PAIN. PATIENT HAD NO OTHER COMPLAINTS AT THIS TIME.
--- NOTE | 2018-10-16 16:45 | NUR ---
Medications reconciled with pharmacy records and patient interview
--- NOTE | 2018-10-16 17:25 | NUR ---
PT SITTING UP IN CHAIR ABOUT TO EAT DINNER, CBG DONE AND WAS 152. 1 UNIT HUMALOG ADMINISTERED ORDERED. PT ASSESSMENT COMPLETED. CALL LIGHT AND H20 IN REACH. PT DENIES SOB. NO FURTHER NEEDS/CONCERNS VOICED.
--- NOTE | 2018-10-16 18:16 | NUR ---
PER PT REQUEST PT ASSISTED UP WITH SBA AND AMBULATES 2 LAPS AROUND MED SURG NURSES STATIONS WITH FWW AND SLOW BUT STEADY GAIT. PT TOLERATED AMBULATION WELL AND DENIED SOB THROUGHOUT. UPON ARRIVAL BACK TO ROOM PT'S ROOM AIR SAT WAS 96%. PT WAS GIVEN 3LPNC PER HIS REQUEST HE STATES HE IS ON THIS CHRONICALLY AT HOME BUT IS ABLE TO TAKE OFF DURING AMBULATION. CALL LIGHT AND H20 IN REACH. PT CONTINUES TO DO WELL WITH FLUID RESTRICTION AND CONTINUES TO PRODUCE QS CLEAR YELLOW URINE. VSS, PT REMAINS A/OX4 AND IS COMPLIANT WITH CARE.
--- NOTE | 2018-10-16 20:00 | NUR ---
PT RESTING IN BEDSIDE CHAIR, RT IN ROOM WITH PT ADMINISTERING NEB TREATMENT, PT AOX4, APPROPRIATE, DENIES ANY NEEDS AT THIS TIME, RT REMAINS IN ROOM, CALL LIGHT WITHIN REACH, FALL PRECAUTIONS IN PLACE.
--- NOTE | 2018-10-16 20:31 | NUR ---
IN ROOM TO ADMIN SCHEDULED MEDS, PT AOX4, ASSESSMENT COMPLETE, PT APPROPRIATE, PT ON 3LNC, NO C/O SOB/CP, PT STATES THAT HE HAS 8/10 PAIN IN HIS NECK, WHICH HE STATES IS CHRONIC, NO C/O NAUSEA, PT STOOD AT BEDSIDE INDEPENDENTLY TO VOID IN URINAL, NO DIFFICULTY NOTED. PT CONTINUES TO REST IN BEDSIDE CHAIR, NO REQUESTS AT THIS TIME, PT'S LS CLEAR. CALL LIGHT WITHIN REACH, FALL PRECAUTIONS IN PLACE.
--- NOTE | 2018-10-16 21:45 | NUR ---
PT GIVEN PRN PAIN MEDICATION PER PT'S REQUEST FOR 8/10 NECK PAIN, PT TOLERATED WELL, PT DENIES FURTHER REQUESTS AT THIS TIME, CALL LIGHT WITHIN REACH, FALL PRECAUTIONS IN PLACE. BELONGINGS AT BEDSIDE. PT DENIES SOB/CP, PT STATES THAT HE IS HAVING SOME "CLEAR MUCOUS" PRODUCTION, PT ENCOURAGED TO COUGH/DEEP BREATH. EDUCATION PROVIDED REGARDING DISEASE PROCESS, PT AGREEABLE TO POC.
--- NOTE | 2018-10-16 22:11 | NUR ---
CALL LIGHT ANSWERED, PT UP TO BED WITH 1 PERSON SBA, PT DENIES ANY DIFFICULTY WITH AMBULATION, PT REMAINS ON 3LNC, NO C/O SOB/CP WITH AMBULATION, PT DENIES ANY FURTHER REQUESTS AT THIS TIME, CALL LIGHT WITHIN REACH. FALL PRECAUTIONS IN PLACE.
--- NOTE | 2018-10-17 | NUR ---
PT RESTING IN BED, ON 3LNC, NO REQUESTS AT THIS TIME, CALL LIGHT WITHIN REACH, NO C/O SOB, NO C/O PAIN, CALL LIGHT WITHIN REACH, FALL PRECAUTIONS IN PLACE.
--- NOTE | 2018-10-17 01:45 | NUR ---
PT AWAKE, STATING THAT HE IS HAVING NECK PAIN WELL NERVE PAIN IN HIS LEGS, PT DESCRIBES THESE PAINS CHRONIC, REQUESTING PRN PAIN MEDICATION, PT GIVEN PRN PAIN MEDICATION PER EMAR, TOLERATED WELL. NO FURTHER REQUESTS AT THIS TIME, ASSESSMENT COMPLETE, PT'S LS REMAIN CLEAR, ON 3LNC, O2 SAT >95,
--- NOTE | 2018-10-17 04:01 | NUR ---
PT RESTING IN BED, EYES CLOSED, BREATHS EVEN, UNLABORED, NO REQUESTS AT THIS TIME, ON 3LNC, FALL PRECAUTIONS IN PLACE. CALL LIGHT WITHIN REACH.
--- NOTE | 2018-10-17 04:48 | NUR ---
WALKED WITH PT AROUND MED SURG FLOOR 2 TIMES PER PT'S REQUEST. HE NEEDS NOTHING MORE AT THIS TIME.
--- NOTE | 2018-10-17 06:13 | NUR ---
PT UP TO BEDSIDE CHAIR, PT STATES C/O 8/10 PAIN IN HIS NECK WELL NERVE PAIN IN HIS LEGS, PT GIVEN PRN PAIN MEDICATION PER PT'S REQUEST. NO FURTHER NEEDS AT THIS TIME, PT VOIDED 200 MLS INDEPENDENTLY IN URINAL. ON 3LNC, NO C/O SOB/CP, NO REQUESTS AT THIS TIME, CALL LIGHT WITHIN REACH, FALL PRECAUTIONS IN PLACE.
--- NOTE | 2018-10-17 06:14 | NUR ---
PT AOX4, RECEIVED, PRN PAIN MEDICATION X3 THIS SHIFT RELATED TO CHRONIC NECK/ LEG NERVE PAIN, PT ON 3LNC, NO C/O SOB/CP, VSS, O2 SAT > 95%, SBA/INDEPENDENT IN ROOM, PT WALKED SEVERAL LAPS IN THE AN THIS NIGHT, TOLERATED WELL, NO C/O SOB/CP, PT ON 1500 ML FLUID RESTRICTION, TOLERATING WELL, URINE OUTPUT QS, LS REMAIN CLEAR THIS NIGHT. AFEBRILE. ON TELE #7
--- NOTE | 2018-10-17 07:10 | NUR ---
BEDSIDE REPORT RECEIVED FROM MARCELA HAMILTON. PT SITTING IN CHAIR RECLINED, REPORTS PAIN OF 5/10 TO NECK, STATES PAIN HAS BEEN CHRONICALLY HIGH AND HE HASN'T SEEMED TO GET MUCH RELEIF WITH NORCO 5/325 AND THAT HE TAKES NORCO 10/325 TID AT HOME AND THIS HELPS MORE SO WITH PAIN. CALL LIGHT AND H20 IN REACH. PT REMAINS ON 3LPNC AND DENIES SOB. WHITE BOARD UPDATED. NO FURHTER NEEDS.CONCERNS VOICED. PT STATES HE FEELS HE MAY BE UP FOR A WALK HERE AFTER BREAKFAST AND COFFEE. RR14 EVEN AND UNLABORED.
--- NOTE | 2018-10-17 08:02 | NUR ---
BLOOD SUGAR CHECK DONE AT 0750. PATIENT IS ON 1500ML FLUID RESTRICTION. NO FREE WATER GIVEN AT THIS TIME. CALL LIGHT IN REACH. NO FURTHER NEEDS AT THIS TIME.
--- NOTE | 2018-10-17 08:40 | NUR ---
pt sitting up in chair watching tv, A/Ox4, call light and h20 in reach. Pt assessment completed. Pt denies SOB and lung sounds are clear.
--- NOTE | 2018-10-17 09:20 | NUR ---
PATIENT SITTING UP IN CHAIR WATCHING TV. VITAL SIGNS AND I&O DONE. CALL LIGHT WITHIN REACH. NO OTHER NEEDS AT THIS TIME
--- NOTE | 2018-10-17 09:59 | NUR ---
PT REPORTS PAIN OF 8/10 TO NECK AND STATES "I FEEL LIKE THOSE NORCO 325'S DON'T HELP ME CAN I START TAKING THE ? THAT'S WHAT I TAKE AT HOME". FACIAL GRIMMACE NOTED. DR VELEZ NOTIFIED OF PT'S REPORT OF 8/10 PAIN AND OF REQUEST.
--- NOTE | 2018-10-17 10:15 | NUR ---
PT SITTING UP IN CHAIR STATES HE CAN'T FIND HIS READING GLASSES TO ORDER LUNCH. NECK PAIN PERSISTS AT 8/10 SO NORCO 10/325 ADMINISTERED PO. CALL TO CCU REVEALED THAT GLASSES WERE LEFT ON UNIT SO THESE WERE RETREIVED AND RETURNED TO PATIENT. CALL LIGHT AND H20 IN REACH. PT TOLERATING FLUID RESTRICTION WELL. NO FURTHER NEEDS/CONCERNS VOICED.
--- NOTE | 2018-10-17 10:42 | NUR ---
PATIENT AMBULATE 2 LAPS IN THE AN.
--- NOTE | 2018-10-17 10:57 | NUR ---
Pt ambulates in halls with steady gait with FWW independantly pt denies sob or dizziness and states pain is now tolerable at 2/10 after norco 10/325 administration. Pt states "I'm really not getting anything here that I wouldn't get at home, I feel great and would like to be discharged today if possible" pt maintains room air o2 levels on room air after ambulation. Lung sounds remain clear and respirations are even and unlabored. call light in reach and no furhter requests/concerns voiced. Dr Aguilar notified of pt's progress and of his request to be discharged. No new orders at this time.
--- NOTE | 2018-10-17 12:50 | NUR ---
PATIENT SITTING UP IN CHAIR. AND RN IN ROOM. FINAL VITAL SIGNS WERE OBTAINED PRIOR DISCHARGE FROM THE UNIT
[2018-11-02] MEDS ORDERED: MELATONIN3 MG PO (22:00)
== END 2018-10-17 13:00 | disposition home or self-care (01) ==
LOC: ED 06:03 → CCU 06:04 → MS 19:50
PROVIDERS: ADMIT Internal Medicine
DX: I50.23 Acute on chronic systolic (congestive) heart failure (principal); I25.10 Atherosclerotic heart disease of native coronary artery without angina pectoris; I25.5 Ischemic cardiomyopathy; J44.9 Chronic obstructive pulmonary disease, unspecified; I25.2 Old myocardial infarction; E78.5 Hyperlipidemia, unspecified; E11.22 Type 2 diabetes mellitus with diabetic chronic kidney disease; I12.9 Hypertensive chronic kidney disease with stage 1 through stage 4 chronic kidney disease, or unspecified chronic kidney disease; N18.3 Chronic kidney disease, stage 3 (moderate); J96.11 Chronic respiratory failure with hypoxia; K21.9 Gastro-esophageal reflux disease without esophagitis; M46.92 Unspecified inflammatory spondylopathy, cervical region; G89.4 Chronic pain syndrome; Z95.810 Presence of automatic (implantable) cardiac defibrillator; Z87.891 Personal history of nicotine dependence; Z79.84 Long term (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 of oral hypoglycemic drugs; Z95.5 Presence of coronary angioplasty implant and graft; Z99.81 Dependence on supplemental oxygen; Z79.02 Long term (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 of antithrombotics/antiplatelets; Z79.82 Long term (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; Z79.891 Long term (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 of opiate analgesic; Z79.899 Other long term (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
CPT/HCPCS: 36415; 71045; 80048; 80053; 83880; 84484; 85025; 93005; 93010; 94640; 96372; 96374; 96375; 96376; 99285-25; G0378; J1650; J1815; J1940; J2930

== ENCOUNTER 2018-10-29 07:31 | Emergency (ER) | payer OTHER ==
[~2018-10-29] VITALS: Ht 175.3 cm; Wt 96.4 kg
[~2018-10-29 07:31] MED LIST changes: +PACERONE200 MG PO; +TOPROL XL50 MG PO
--- OUTSIDE RECORDS SUMMARY | 2018-10-29 07:34 | XMS ---
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 Care History Medical/Surgical 10/18/2018 [facility] - Patient is currently established with [facility]. If patient is seen in the ED during business hours. Please contact CHWs at [facility]. Care Recommendation: This patient has had 5 or more Emergency Department visits in the last 12 months.\T\nbsp; Patient requires education on the scope and purpose of the ED as an acute care provider not a Primary Care Provider and should not be utilized for chronic conditions.\T\nbsp; These are guidelines and the provider should exercise clinical judgment when providing care. 12/07/2017 [facility] - Patient is currently utilizing PCP Dr Matson and has been referred to a fermenting cellars receiver. - All chronic conditions please refer to [...] ED please contact Community Health WorkerLamar at [phone]. These are guidelines and the provider should exercise clinical judgment when providing care. E.D. VISIT COUNT (12 MO.) 1 [facility] 1 [facility] 12 [facility] TOTAL 14 NOTE: Visits indicate total known visits. 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 - Heart failure, unspecified - Shortness of breath - Old myocardial infarction - Chronic obstructive pulmonary disease with (acute) exacerbation - Pure hypercholesterolemia, unspecified 08/09/2018 09:56 [facility] [place] TYPE: Emergency COMPLAINT: - L HIP PAIN/NO INJURY DIAGNOSES: - Pain in left hip - Sciatica, left side - Pure hypercholesterolemia, unspecified - Essential (primary) hypertension - Other fci (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 - Old myocardial infarction 06/26/2018 06:43 [facility] [place] TYPE: Emergency COMPLAINT: - SOB DIAGNOSES: - Heart failure, unspecified - Shortness of breath - Hypertensive heart disease with heart failure - Chronic obstructive pulmonary disease with (acute) exacerbation - Other fci (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 06/17/2018 02:41 [facility] [place] TYPE: Emergency COMPLAINT: - SOB DIAGNOSES: - 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 superintendent marine oil terminal (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 - Dyspnea, unspecified - Essential (primary) hypertension - Presence of coronary angioplasty implant and graft - 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 - Personal history of nicotine dependence - Shortness of breath 05/01/2018 07:47 [facility] TYPE: Emergency DIAGNOSES: - Chest pain, unspecified - Non-ST elevation (NSTEMI) myocardial infarction - Acute pulmonary edema - Shortness of Breath 05/01/2018 03:23 [facility] TYPE: Emergency COMPLAINT: - SOB DIAGNOSES: - Shortness of breath - 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 - Non-ST elevation (NSTEMI) myocardial infarction - Heart failure, unspecified - Other superintendent marine oil terminal (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 - Personal history of nicotine dependence 04/17/2018 06:31 [facility] TYPE: Emergency COMPLAINT: - CHEST PAIN DIAGNOSES: - Personal history of nicotine dependence - Chest pain, unspecified - Precordial pain 01/12/2018 21:19 [facility] [place] TYPE: Emergency COMPLAINT: - NECK PAIN,FLUTTERING HEARTBEAT DIAGNOSES: - Palpitations - 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 - Other fci (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 - Personal history of nicotine dependence - Essential (primary) hypertension - Cervicalgia 12/16/2017 11:59 [facility] [place] TYPE: Emergency COMPLAINT: - COUGH DIAGNOSES: - 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 superintendent marine oil terminal (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 - ROTOR BALANCER (CURRENT) USE OF ORAL HYPOGLYCEMIC DRUGS - Essential (primary) hypertension - 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 - Personal history of nicotine dependence - Bronchitis, not specified as acute or chronic - Old myocardial infarction - PURE HYPERCHOLESTEROLEMIA, UNSPECIFIED - Cough - 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 (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 of oral hypoglycemic drugs - Pure hypercholesterolemia, unspecified 12/04/2017 22:04 [facility] [place] TYPE: Emergency COMPLAINT: - SOB DIAGNOSES: - Shortness of breath - Atherosclerotic heart disease of [place] coronary artery without angina pectoris - Heart failure, unspecified - 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 - Chronic pulmonary edema - PURE HYPERCHOLESTEROLEMIA, UNSPECIFIED - Personal history of nicotine dependence - Hypertensive heart disease with heart failure - Other superintendent marine oil terminal (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 - long-term (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 of oral hypoglycemic drugs - Pure hypercholesterolemia, unspecified - ROTOR BALANCER (CURRENT) USE OF ORAL HYPOGLYCEMIC DRUGS - Old myocardial infarction 11/13/2017 01:28 [facility] [place] TYPE: Emergency COMPLAINT: - SOB INPATIENT VISIT TRACKING (12 MO.) 10/16/2018 06:04 [facility] [place] TYPE: Medical Surgical COMPLAINT: - DECOMPENSATED HEART FAILURE DIAGNOSES: - Ischemic cardiomyopathy - Type 2 diabetes mellitus with diabetic chronic kidney disease - Chronic pain syndrome - Dependence on supplemental oxygen - Unspecified inflammatory spondylopathy, cervical region - Chronic obstructive pulmonary disease, unspecified - 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 (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 of oral hypoglycemic drugs - Personal history of nicotine dependence - 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 - Presence of automatic (implantable) cardiac defibrillator - Other fci (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 - Acute on chronic systolic (congestive) heart failure - Presence of coronary angioplasty implant and graft - Atherosclerotic heart disease of [place] coronary artery without angina pectoris - Old myocardial infarction - Chronic respiratory failure with hypoxia - Shortness of breath - Gastro-esophageal reflux disease without esophagitis - long-term (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 of opiate analgesic - Hypertensive chronic kidney disease with stage 1 through stage 4 chronic kidney disease, or unspecified chronic kidney disease - long-term (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 of antithrombotics/antiplatelets - Chronic kidney disease, stage 3 (moderate) - Hyperlipidemia, unspecified 05/13/2018 16:21 [facility] MARKO Rosales TYPE: Cardiology DIAGNOSES: - Heart failure, unspecified - Atherosclerotic heart disease of [place] coronary artery without angina pectoris - Family history of other specified conditions - Atherosclerotic heart disease of [place] coronary artery with other forms of angina pectoris - Chronic systolic (congestive) heart failure - Coronary Artery Disease - Other forms of angina pectoris - Ischemic cardiomyopathy - Other forms of dyspnea - Essential (primary) hypertension - Presence of automatic (implantable) cardiac defibrillator 05/01/2018 07:47 [facility] Bobby [facility] TYPE: General Medicine DIAGNOSES: - Acute pulmonary edema - Non-ST elevation (NSTEMI) myocardial infarction - Chest pain, unspecified - Illness, unspecified [email or web address]
--- NOTE | 2018-10-29 14:58 | EKG ---
[facility] [address] [place] [address] Signed Atrial-sensed ventricular-paced rhythm Abnormal ECG When compared with ECG of 16-OCT-2018 06:08, Vent. rate has increased BY 3 BPM Confirmed by KIMMIE GONZALEZ MD ([id number]) on 10/29/2018 2:57:51 PM Electronically Signed By: KIMMIE GONZALEZ MD 10/29/18 1458 PATIENT NAME: RON MCKEON Electrocardiogram DATE OF : 53 PHYSICIAN: KIMMIE GONZALEZ MD REPORT #: [id number] REPORT IS CONFIDENTIAL AND NOT TO BE RELEASED WITHOUT AUTHORIZATION
--- NOTE | 2018-10-29 14:58 | EKG ---
[facility] [address] [place] [address] Signed Atrial-sensed ventricular-paced rhythm Abnormal ECG When compared with ECG of 29-OCT-2018 07:36, (Unconfirmed) Vent. rate has decreased BY 9 BPM Confirmed by KIMMIE GONZALEZ MD ([id number]) on 10/29/2018 2:57:56 PM Electronically Signed By: KIMMIE GONZALEZ MD 10/29/18 1458 PATIENT NAME: RON MCKEON Electrocardiogram DATE OF : 53 PHYSICIAN: KIMMIE GONZALEZ MD REPORT #: [id number] REPORT IS CONFIDENTIAL AND NOT TO BE RELEASED WITHOUT AUTHORIZATION
[2018-11-02] MEDS ORDERED: MELATONIN3 MG PO (22:00)
== END 2018-10-29 12:45 | disposition home or self-care (01) ==
LOC: ED 07:31
DX: R07.9 Chest pain, unspecified (principal); I25.2 Old myocardial infarction; E78.00 Pure hypercholesterolemia, unspecified; I10 Essential (primary) hypertension; J44.9 Chronic obstructive pulmonary disease, unspecified; Z95.0 Presence of cardiac pacemaker; Z95.5 Presence of coronary angioplasty implant and graft; Z87.891 Personal history of nicotine dependence; Z90.49 Acquired absence of other specified parts of digestive tract; Z79.82 Long term (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; Z79.899 Other long term (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
CPT/HCPCS: 71045; 80053; 83880; 84484; 85025; 93005; 93010; 99285-25

== ENCOUNTER 2018-11-02 19:26 | Inpatient (IN) | payer OTHER ==
[~2018-11-02] VITALS: Ht 175.3 cm; Wt 94.8 kg
--- OUTSIDE RECORDS SUMMARY | 2018-11-02 19:28 | XMS ---
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 Care History Medical/Surgical 10/18/2018 [facility] - Patient is currently established with [facility]. If patient is seen in the ED during business hours. Please contact CHWs at [facility]. Care Recommendation: This patient has had 5 or more Emergency Department visits in the last 12 months.\T\nbsp; Patient requires education on the scope and purpose of the ED as an acute care provider not a Primary Care Provider and should not be utilized for chronic conditions.\T\nbsp; These are guidelines and the provider should exercise clinical judgment when providing care. 12/07/2017 [facility] - Patient is currently utilizing PCP Dr Matson and has been referred to a tobacco checkout clerk. - All chronic conditions please refer [...] ED please contact Community Health WorkerLamar at [phone]. These are guidelines and the provider should exercise clinical judgment when providing care. E.D. VISIT COUNT (12 MO.) [address] [facility] 1 [facility] 13 [facility] TOTAL 15 NOTE: Visits indicate total known visits. ED/UCC VISIT TRACKING (12 MO.) 11/02/2018 19:26 [facility] [place] TYPE: Emergency COMPLAINT: - SOB 10/29/2018 07:32 [facility] [place] TYPE: Emergency COMPLAINT: - CHEST PAIN DIAGNOSES: - Pure hypercholesterolemia, unspecified - Old myocardial infarction - Chronic obstructive pulmonary disease, unspecified - Essential (primary) hypertension - Personal history of nicotine dependence - Chest pain, unspecified - alf (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 - Presence of coronary angioplasty implant and graft - Other meterman (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 - Acquired absence of other specified parts of digestive tract - Presence of cardiac pacemaker 10/16/2018 06:03 [facility] [place] TYPE: Emergency COMPLAINT: - SOB 08/26/2018 11:00 [facility] Janine LuiFletcherNaeFletcher [facility] MARKO TYPE: Emergency DIAGNOSES: - low bp - Adverse effect of beta-adrenoreceptor antagonists, initial encounter - Weakness - Hypotension 08/18/2018 00:07 [facility] TYPE: Emergency COMPLAINT: - SOB DIAGNOSES: - Hypertensive heart disease with heart failure - Disorder of kidney and ureter, unspecified - Personal history of nicotine dependence - Other meterman (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 - Heart failure, unspecified - Shortness of breath - Old myocardial infarction - Chronic obstructive pulmonary disease with (acute) exacerbation - Pure hypercholesterolemia, unspecified 08/09/2018 09:56 [facility] TYPE: Emergency COMPLAINT: - L HIP PAIN/NO INJURY DIAGNOSES: - Pain in left hip - Sciatica, left side - Pure hypercholesterolemia, unspecified - Essential (primary) hypertension - Other halfway (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 - Old myocardial infarction 06/26/2018 06:43 [facility] [place] TYPE: Emergency COMPLAINT: - SOB DIAGNOSES: - Heart failure, unspecified - Shortness of breath - Hypertensive heart disease with heart failure - Chronic obstructive pulmonary disease with (acute) exacerbation - Other halfway (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 06/17/2018 02:41 [facility] [place] TYPE: Emergency COMPLAINT: - SOB DIAGNOSES: - Other halfway (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 - Dyspnea, unspecified - Essential (primary) hypertension - Presence of coronary angioplasty implant and graft - alf (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 - Personal history of nicotine dependence - Shortness of breath 05/01/2018 07:47 [facility] TYPE: Emergency DIAGNOSES: - Chest pain, unspecified - Non-ST elevation (NSTEMI) myocardial infarction - Acute pulmonary edema - Shortness of Breath 05/01/2018 03:23 [facility] TYPE: Emergency COMPLAINT: - SOB DIAGNOSES: - Shortness of breath - alf (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 - Non-ST elevation (NSTEMI) myocardial infarction - Heart failure, unspecified - Other halfway (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 - Personal history of nicotine dependence 04/17/2018 06:31 [facility] [place] TYPE: Emergency COMPLAINT: - CHEST PAIN DIAGNOSES: - Personal history of nicotine dependence - Chest pain, unspecified - Precordial pain 01/12/2018 21:19 [facility] [place] TYPE: Emergency COMPLAINT: - NECK PAIN,FLUTTERING HEARTBEAT DIAGNOSES: - Palpitations - moth exterminator (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 - Other meterman (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 - Personal history of nicotine dependence - Essential (primary) hypertension - Cervicalgia 12/16/2017 11:59 [facility] [place] TYPE: Emergency COMPLAINT: - COUGH DIAGNOSES: - Other meterman (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 - LONG-TERM (CURRENT) USE OF ORAL HYPOGLYCEMIC DRUGS - Essential (primary) hypertension - moth exterminator (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 - Personal history of nicotine dependence - Bronchitis, not specified as acute or chronic - Old myocardial infarction - PURE HYPERCHOLESTEROLEMIA, UNSPECIFIED - Cough - moth exterminator (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 of oral hypoglycemic drugs - Pure hypercholesterolemia, unspecified 12/04/2017 22:04 [facility] [place] TYPE: Emergency COMPLAINT: - SOB DIAGNOSES: - Shortness of breath - Atherosclerotic heart disease of [place] coronary artery without angina pectoris - Heart failure, unspecified - alf (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 - Chronic pulmonary edema - PURE HYPERCHOLESTEROLEMIA, UNSPECIFIED - Personal history of nicotine dependence - Hypertensive heart disease with heart failure - Other halfway (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 - moth exterminator (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 of oral hypoglycemic drugs - Pure hypercholesterolemia, unspecified - OCCUP THERAPIST (CURRENT) USE OF ORAL HYPOGLYCEMIC DRUGS - [...] - Chronic obstructive pulmonary disease, unspecified - moth exterminator (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 of oral hypoglycemic drugs - Personal history of nicotine dependence - alf (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 - Presence of automatic (implantable) cardiac defibrillator - Other halfway (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 - Acute on chronic systolic (congestive) heart failure - Presence of coronary angioplasty implant and graft - Atherosclerotic heart disease of [place] coronary artery without angina pectoris - Old myocardial infarction - Chronic respiratory failure with hypoxia - Shortness of breath - Gastro-esophageal reflux disease without esophagitis - moth exterminator (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 of opiate analgesic - Hypertensive chronic kidney disease with stage 1 through stage 4 chronic kidney disease, or unspecified chronic kidney disease - alf (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 of antithrombotics/antiplatelets - Chronic kidney disease, stage 3 (moderate) - Hyperlipidemia, unspecified 05/13/2018 16:21 [facility] TYPE: Cardiology DIAGNOSES: - Heart failure, unspecified - Atherosclerotic heart disease of [place] coronary artery without angina pectoris - Family history of other specified conditions - Atherosclerotic heart disease of [place] coronary artery with other forms of angina pectoris - Chronic systolic (congestive) heart failure - Coronary Artery Disease - Other forms of angina pectoris - Ischemic cardiomyopathy - Other forms of dyspnea - Essential (primary) hypertension - Presence of automatic (implantable) cardiac defibrillator [facility] TYPE: General Medicine DIAGNOSES: - Acute pulmonary edema - Non-ST elevation (NSTEMI) myocardial infarction - Chest pain, unspecified - Illness, unspecified [email or web address]
--- NOTE | 2018-11-02 20:01 | EKG ---
[facility] [address] [place] [place] [address] Signed Atrial-sensed ventricular-paced rhythm Abnormal ECG When compared with ECG of 29-OCT-2018 11:57, Vent. rate has increased BY 14 BPM Confirmed by KIMMIE GONZALEZ MD ([id number]) on 11/02/2018 8:01:42 PM Electronically Signed By: KIMMIE GONZALEZ MD 11/02/182000 PATIENT NAME: RON MCKEON RACHEL Electrocardiogram DATE OF : 53 PHYSICIAN: KIMMIE OGNZALEZ MD REPORT #: [id number] REPORT IS CONFIDENTIAL AND NOT TO BE RELEASED WITHOUT AUTHORIZATION
[2018-11-02] MEDS ORDERED: MELATONIN10 M2 PO (22:00)
[2018-11-02] MEDS ORDERED: ENTRESTO 49 MG1 EACH PO (22:01)
--- NOTE | 2018-11-02 22:07 | NUR ---
RECIEVED REPORT FROM ALFONSO GUILLEN IN ER. ALL QUESTIONS ANSWERED. WAITING FOR PATIENT TO ARRIVE TO THE FLOOR AT THIS TIME.
--- NOTE | 2018-11-02 23:14 | NUR ---
PATIENT ARRIVED TO THE FLOOR VIA STRETCHER AT 2227. PATIENT ABLE TO AMBULATE WITH ASSISTANCE FROM STRETCHER TO SCALE AND TO BED WITH ASSISTANCE. PATIENT ON 4 L VIA NC. AT BEDSIDE AND INVOLVED IN PROVIDING PATIENT HISTORY WITH PATIENT. PATIENT ALERT AND ORIENTED. PATIENT'S AND PATIENT DISCUSSED WITH THIS RN AND CAMERA STORAGE CLERKTERESA THAT PATIENT NORMALLY HAS "2 TABS OF TRAMADOL AT LEAST TWICE A DAY", THIS RN DISCUSSED THIS WITH CHARGE NURSE TO UPDATE HOSPITALIST, THIS RN CALLED HOSPITALIST, DR. GONZALEZ AWARE.
--- NOTE | 2018-11-02 23:52 | NUR ---
ASSESSMENT COMPLETE, REFER TO ASSESSMENT. MEDICATIONS ADMINISTERED PER NOV ORDER. CPOX IN PLACE, WNL. PATIENT DENIES CHEST PAIN, SOB, OR DIFFICULTY BREATHING. 4 L VIA NC. IS AND ACAPELLA AT BEDSIDE. PATIENT SITTING ON SIDE OF BED LEANING OVER SIDE TABLE, PATIENT REPORTS FEELING BETTER IN THIS POSITION. SNACK PACK PROVIDED TO PATIENT, PATIENT CONSUMED 100%. 1500 ML FLUID RESTRICTION PER ORDER. EDEMA NOTED IN LOWER EXTREMITIES, REFER TO ASSSESSMENT. IV ASSESSED TO BE PATENT, WNL. PATIENT ALERT AND ORIENTED. PATIENT REPORTS "7/10" PAIN IN LEFT KNEE AND "8/10" PAIN IN NECK, PRN PAIN MEDICATIONS PROVIDED. CALL LIGHT WITHIN REACH. NO MORE NEEDS AT THIS TIME.
--- NOTE | 2018-11-03 01:28 | NUR ---
ROUNDED ON PATIENT DUE TO PATIENT CPOX ALARMING. PATIENT RESTING WITH EYES CLOSED IN BED ON RIGHT SIDE WITH 5L VIA NC. ENCOUARGED PATIENT TO TAKE DEEP BREATHS. PATIENT DENIES FEELING SOB, HAVING DIFFICULTY BREATHING OR FEELING LIGHTHEADED. AFTER TAKING DEEP BREATHS, O2 SATS INCREASED TO LOW 90'S. URINAL EMPTIED. CALL LIGHT WITHIN REACH. NO MORE NEEDS AT THIS TIME.
--- NOTE | 2018-11-03 02:35 | NUR ---
ASSESSMENT COMPLETE, REFER TO ASSESSMENT. TITRATED PATIENT O2 TO 4L VIA NC. CPOX, WNL. PATIENT DENIES SOB, DIFFICULTY BREATHING OR CHEST PAIN. PATIENT REPORTS PAIN IN LEFT KNEE A "7/10" AND PAIN IN NECK A "8/10", PRN PAIN MEDICATION PROVIDED. PATIENT ABLE TO COMMUNICATE IN CLEAR AND CONCISE SENTENCES, NO SIGNS OF RESPIRATORY DISTRESS. PATIENT REFUSED PILLOW FOR BLE. THERAPEUTIC COMMUNICATION AND LISTENING PROVIDED, PATIENT STATES "FEELS GOOD TO TALK TO SOMEONE SOMETIMES". CALL LIGHT WITHIN REACH. NO MORE NEEDS AT THIS TIME.
--- NOTE | 2018-11-03 04:23 | NUR ---
ROUNDED ON PATIENT RESTING IN BED WITH EYES CLOSED, LAYING ON LEFT SIDE. RR: 20. NO SIGN OF RESPIRATORY DISTRESS. CALL LIGHT WITHIN REACH.
--- NOTE | 2018-11-03 04:32 | NUR ---
PATIENT ARRIVED TO FLOOR FROM ED AROUND 0. ALERT AND ORIENTED. SALINE LOCKED. ACCU CHECK WITH SLIDING SCALE. CPOX. CARDIAC/ADA DIET. 1500 ML FLUID RESTRICTION. ACAPELLA AND IS. SBA W/FWW. DAILY WEIGHT. PRN PAIN MEDICATION X2. 4L VIA NC. URINAL AT BEDSIDE.
--- NOTE | 2018-11-03 05:30 | NUR ---
ASSESSMENT COMPLETE. PATIENT DENIES SOB, DIFFICULTY BREATHING OR CHEST PAIN. PATIENT REPORTS "6/10" PAIN IN LEFT KNEE AND "8/10" PAIN IN NECK, DENIES WANTING PRN PAIN MEDICATION AT THIS TIME. PATIENT REPORTS HAVING SOME SOB WITH EXTERTION. PEST CONTROL SERVICE REPRESENTATIVE IN ROOM. VITALS ASSESSED AND RECORDED. INTAKE AND OUTPUT ASSESSED AND RECORDED. IS AND ACAPELLA AT BEDSIDE, EDUCATION PROVIDED ON THEIR USE. COFFEE PROVIDED PER PATIENT REQUEST. DAILY WEIGHT OBTAINED. URINAL AT BEDSIDE. CALL LIGHT WITHIN REACH. NO MORE NEEDS AT THIS TIME.
--- NOTE | 2018-11-03 06:13 | NUR ---
ROUNDED ON PATIENT TO ANSWER PATIENT CALL LIGHT. PATIENT'S ARM BLEEDING FROM SITE WHERE LAB DRAWS WERE DRAWN THIS AM. COMPRESSION DRESSING PLACED. CALL LIGHT WITHIN REACH. NO MORE NEEDS AT THIS TIME.
--- NOTE | 2018-11-03 06:57 | NUR ---
ROUNDED ON PATIENT SITTING UP IN BED. PRESSURE DRESSING REMOVED FROM ARM, NO MORE BLEEDING PRESENT. CALL LIGHT WITHIN REACH. NO MORE NEEDS AT THIS TIME.
--- NOTE | 2018-11-03 08:37 | NUR ---
Patient takes Entresto 49/51 for heart failure. It has been ordered to begin this morning. Patient's will bring medication in and pharmacy will verify and label it for patient use
--- NOTE | 2018-11-03 09:03 | NUR ---
PATIENT SITTING UP IN BED, TALKATIVE AND IN GOOD MOOD. PATIENT STATES HE DOES NOT NEED TO WASH HIS FACE THIS MORNING. PHILIP DOVE STATES AM CARE HAS ALREADY BEEN DONE. PATIENT CALL LIGHT IN REACH, NO OTHER NEEDS AT THIS TIME.
--- NOTE | 2018-11-03 09:25 | NUR ---
PT IS SITTING UP ON EDGE OF BED, STATES HE IS WAITING FOR TO COME IN. ATE 100% OF BREAKFAST. STATES HE IS FEELING MUCH BETTER THIS AM. PEREZ ANY RESP DISTRESS. COMFORTABLE WITH O2 AT 3-4 L/NC. OXIMETER 93%. SCHEDULED MEDICATIONS GIVEN. CALL LIGHT IN EASY REACH. DENIES FURTHER NEEDS.
--- NOTE | 2018-11-03 10:47 | NUR ---
PATIENT SITTING UP IN CHAIR, CALL LIGHT AND BEDSIDE TABLE IN REACH. NO OTHER NEEDS AT THIS TIME.
--- NOTE | 2018-11-03 12:17 | NUR ---
PT SITTING ON SIDE OF BED, WATCHING TV. HE IS ALERT, ORIENTED AND SEEMED TO APPRECIATE MY VISIT. PT SAID HE IS FEELING MUCH BETTER-"DID THIS TO MYSELF" AND HE WENT ON TO SAY HE JUST WASN'T PAYING CLOSE ENOUGH ATTENTION, AND LET FLUID BUILD UP.LASIK SEEMS TO BE WORKING. PT BEGAN TO TELL ME ABOUT ALL THE CHALLENGES HE IS HAVING RAISING HIS DAUGHTER. ENCOURAGED HIM TO KEEP BEING HER DAD. EXTENDED A BLESSING, WILL FOLLOW NEEDED
--- NOTE | 2018-11-03 13:00 | NUR ---
HERE TO VISIT AND HAS BROUGHT IN PT OWN MEDICATION OF ENTRESTO.
[2018-11-03] MEDS ORDERED: NEURONTIN100 MG PO (13:16)
--- NOTE | 2018-11-03 13:30 | NUR ---
PT IS EXPECTING TO RETURN HOME UPON DC. HE LIVES WITH HIS .
--- NOTE | 2018-11-03 16:33 | NUR ---
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 He states she reads all of the labels. Patient acknowledged that prior to KS he was eating up to 24 hot dogs a week and that contributed to poor health. Dines out less than use to. Demonstrates label reading abilities Usual physical activity: Medication routine: Has method of writing on top of bottles , denies missed medications. States is also very use to his routine. Has been counseled on minimizing/avoiding use of NSAIDs. States he no longer uses for neck or back pain since he has prescription drugs. Advanced directive: Not discussed at this initial visit Recommendations prior to discharge: Document ambulation oxygen saturations prior to discharge Absence of orthostatic hypotension. Discharge weight less than admit weight. Discharge BNP less than admit (as per [facility] Heart Failure DC Bundle) Review of early symptom monitoring and daily weight Patient shared his story of having an KS and the health problems that have followed. He is currently in Cardiac Rehab at [place] and enjoys attending. Follow-up plans: Ensure patient has scale at home and understands use of Zones Obtain industrial maintenance technician's list of lower sodium foods to order when dining out. Patient is aware of f/u call plans post DC. Teaching materials given: [facility] Heart Failure bundle folder-[facility] My Action Plan Living Well with Heart Failure book, Daily weight and symptom monitoring log, Zones magnet-- pt states his has taken it home. Low Sodium Shopping list
--- NOTE | 2018-11-03 17:30 | NUR ---
CHF PACKET ISSUED TO PT. DISCUSSED EDUCATIONAL MATERIALS WITH PT. WILL BE BACK SHORTLY AND WILL DISCUSS PACKET AGAIN WITH HER.
--- NOTE | 2018-11-03 18:19 | NUR ---
PT HAS HAD A GOOD DAY. UP IN RECLINER MOST OF DAY, STATES HIS BREATHING IS MUCH EASIER, IN GOOD SPIRITS, IN TO SEE HIM. LASIX INCREASED TODAY TO 40MG BID. GOOD URINE OUTPUT. MAY GO HOME TOMARROW.
--- NOTE | 2018-11-03 19:40 | NUR ---
TRAVELING O2 TANK PREPPED FOR PT. PT WISHES TO AMBULATE IN HALLWAY WITH . PT AMBULATING IN HALLWAY W/ HOME FWW. PT ON 3L NC WHILE AMBULATING. PT AMBULATED 2 1/2 LOOPS IN HALLWAY AND STATED, "I FELT GOOD". NO SIGNS OR SYMPTOMS OF RESPIRATORY DISTRESS OR SOB NOTED WHEN ASKED BY THIS RN FOLLOWING AMBULATION.
--- NOTE | 2018-11-03 19:45 | NUR ---
pt reports /10 pain in neck, 1 prn norco administered per pt request. pt a/, rr even and unlabored. denies additional needs, awiting 's arrival to go on walk in hallway. call light in reach, cpox in place, pt on 2lnc, o2 sat 92, hr 73.
--- NOTE | 2018-11-03 21:15 | NUR ---
ASSESSMENT COMPLETE. MEDICATIONS GIVEN (SEE EMAR). CPOX IN PLACE, VSS. PT A/OX4, DENIES PAIN AFTER LAST NORCO ADMINISTRATION (SEE EMAR). PT ON 2L NC AT THIS TIME. PT DENIES SOB AND DYSPNEA. PT DENIES NEEDS AT THIS TIME. 1 UNIT INSULIN SS GIVEN (SEE EMAR). CALL LIGHT IN REACH.
--- NOTE | 2018-11-04 00:15 | NUR ---
PT RESTING IN BED, EYES CLOSED. RR EVEN AND UNLABORED. PT APPEARS COMFORTABLE. CPOX IN PLACE, 4L NC IN PLACE. 02 SAT AND HR WNL. CALL LIGHT IN REACH.
--- NOTE | 2018-11-04 02:15 | NUR ---
PT RESTING IN BED, RR EVEN AND UNLABORED. PT ON 4L NC, O2 SAT 88-89%. PT EASILY AWOKEN AND ENCOURAGED TO COUGH AND DEEP BREATH. O2 SAT QUICKLY WARREN TO 95%. HR 62. FRESH WATER PROVIDED PER PT REQUEST. CALL LIGHT IN REACH, URINAL EMPTIED.
--- NOTE | 2018-11-04 02:45 | NUR ---
ASSESSMENT COMPLETE. PT A/OX4, RATES PAIN /10, PRN ULTRAM GIVEN. NO NEW CONCERNS, CPOX IN PLACE. O2 SAT AND HR WNL. NO FURTHER NEEDS, CALL LIGHT IN REACH.
--- NOTE | 2018-11-04 04:07 | NUR ---
pt reports 8/10 pain. prn norco administered. cpox in place, pt on 3lnc, o2 sat 94%, hr 60. pt denies further needs, call light in reach.
--- NOTE | 2018-11-04 06:55 | NUR ---
BEDSIDE HANDOFF REPORT RECEIVED FROM MEDICAL BILLING SPECIALIST RN. PT SITTING ON EDGE OF BED. O2 SATS 93% ON ROOM AIR. PT DENIES NEEDS AT THIS TIME.
--- NOTE | 2018-11-04 08:20 | NUR ---
PT SITTING ON EDGE OF BED, COMPLETED BREAKFAST. PT ON 3L NC, O2 SATS 96%, LUNG SOUNDS CLEAR. PT TOLERATING ADA DIET, DENIES NAUSEA, BOWEL TONES ACTIVE. PT COMPLAINT OF NUMBNESS/TINGLING TO LLE, AT BASELINE, CMS OTHERWISE INTACT, WITHOUT EDEMA. PT RATING PAIN 7/10 TO BACK, CHRONIC PAIN. PT SALINE LOCKED. DISCUSSED PLAN OF CARE FOR THE DAY, PT HOPING TO BE DISCHARGED. PT DENIES OTHER NEEDS AT THIS TIME.
[2018-11-04] MEDS ORDERED: TOPROL XL50 MG PO (09:33)
[2018-11-04] MEDS ORDERED: SPIRONOLACTONE25 MG PO (09:35)
[2018-11-04] MEDS ORDERED: NEURONTIN100 MG PO (09:36)
[2018-11-04] MEDS ORDERED: TORSEMIDE10 MG PO (09:37)
--- NOTE | 2018-11-04 14:48 | NUR ---
PT SITTING IN CHAIR, WITH HIS BOOTS ON-READY FOR DC. HE WAS VERY THANKFUL FOR THE TIME DR GONZALEZ SPENT WITH HIM. HE STATED THAT HE LEARNED MORE ABOUT HOW TO CARE FOR HIMSELF IN THAT BRIEF VISIT THAN HE HAS IN YEARS.EXTENDED A BLESSING WILL FOLLOW NEEDED
== END 2018-11-04 11:30 | disposition home or self-care (01) | DRG 291 ==
LOC: ED 19:26 → MS 22:09
PROVIDERS: ADMIT Internal Medicine
DX: I50.23 Acute on chronic systolic (congestive) heart failure (principal); J96.01 Acute respiratory failure with hypoxia; J44.9 Chronic obstructive pulmonary disease, unspecified; I25.10 Atherosclerotic heart disease of native coronary artery without angina pectoris; E11.22 Type 2 diabetes mellitus with diabetic chronic kidney disease; N18.3 Chronic kidney disease, stage 3 (moderate); K21.9 Gastro-esophageal reflux disease without esophagitis; E78.5 Hyperlipidemia, unspecified; G47.34 Idiopathic sleep related nonobstructive alveolar hypoventilation; G89.4 Chronic pain syndrome; F51.04 Psychophysiologic insomnia; I25.2 Old myocardial infarction; Z87.891 Personal history of nicotine dependence; Z98.61 Coronary angioplasty status; Z95.810 Presence of automatic (implantable) cardiac defibrillator; Z79.84 Long term (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 of oral hypoglycemic drugs; Z79.02 Long term (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 of antithrombotics/antiplatelets; Z79.82 Long term (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; Z79.891 Long term (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 of opiate analgesic; Z79.899 Other long term (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
CPT/HCPCS: 36415; 71045; 80048; 80053; 83735; 83880; 84484; 85025; 93005; 93010; 93306; 94640; 94667; 94761; 94762; 96374; 96375; 96376; 99285-25; J1650; J1815; J1940; J2930

== ENCOUNTER 2018-12-10 06:53 | Emergency (ER) | payer OTHER ==
[~2018-12-10] VITALS: Ht 175.3 cm; Wt 99.8 kg
--- OUTSIDE RECORDS SUMMARY | ~2018-12-10 | XMS | Clinical Summary ---
Demographics + + + | Address | [address] | | | [place] [address] | + + + | Home Phone | | + + + | Preferred Language | Unknown | + + + | Marital Status | | + + + | Zoroastrian Affiliation | Unknown | + + + | Race | Unknown | + + + | Ethnic Group | Unknown | + + + Author + + + | Author | [facility] | | | and [place] | + + + | Organization | [facility] | | | and [place] | + + + | Address | Unknown | + + + | Phone | Unavailable | + + + Support + + + + + | Name | Relationship | Address | Phone | + + + + + | Venice Mckeon | [place] | [place] | | | | | [phone] | | + + + + + Care Team Providers + +------+ + | Care Marine Fuel Dock Attendant Name | Role | Phone | + +------+ + | Venus Lainez MD | PP | | + +------+ + Allergies No Known Allergies Current Medications + + +--------+---------+------+------+-------+ | Prescription | Sig. | Disp. | Refills | Star | End | Statu | | | | | | t | Date | s | | | | | | Date | | | + + +--------+---------+------+------+-------+ | aspirin 81 MG | Take 81 mg by mouth | | | | | Activ | | tablet | Daily. | | | | | e | + + +--------+---------+------+------+-------+ | gabapentin | Take 300 mg by mouth | | | | | Activ | | (NEURONTIN) 300 mg | 3 times daily. | | | | | e | | capsule | | | | | | | + + +--------+---------+------+------+-------+ | Cholecalciferol | Take by mouth Once | | | | | Activ | | (VITAMIN D-3) [address]10 | a week. | | | | | e | | units CAPS | | | | | | | + + +--------+---------+------+------+-------+ | traMADol (ULTRAM) | Take 50 mg by mouth | | | | | Activ | | 50 mg tablet | every 6 hours as | | | | | e | | | needed. | | | | | | + + +--------+---------+------+------+-------+ | metFORMIN | Take 500 mg by mouth | | | | | Activ | | (GLUCOPHAGE) 500 mg | 2 times daily (with | | | | | e | | tablet | breakfast & | | | | | | | | dinner). | | | | | | + + +--------+---------+------+------+-------+ | nitroglycerin | Place 1 tablet under | 25 | 3 | 09/ | | Activ | | (NITROSTAT) 0.4 mg | the tongue every 5 | tablet | | 4/20 | | e | | SL tablet | minutes as needed | | | 18 | | | | | for Chest pain. | | | | | | + + +--------+---------+------+------+-------+ | raNITIdine | Take 1 tablet by | | | 08/2 | | Activ | | (ZANTAC) 300 MG | mouth nightly. | | | 2/20 | | e | | tablet | | | | 18 | | | + + +--------+---------+------+------+-------+ | melatonin 3 mg | Take 5 mg by mouth | | | | | Activ | | TABS | nightly. | | | | | e | + + +--------+---------+------+------+-------+ | acetaminophen | Take 1,000 mg by | | | | | Activ | | (TYLENOL) 500 mg | mouth as needed. | | | | | e | | tablet | | | | | | | + + +--------+---------+------+------+-------+ | furosemide (LASIX) | TAKE ONE TABLET BY | 30 | 4 | 10/1 | | Activ | | 20 mg tablet | MOUTH DAILY | tablet | | 2/20 | | e | | | | | | 18 | | | + + +--------+---------+------+------+-------+ | amiodarone | Take 2 tablets by | 60 | 5 | 10/2 | | Activ | | (PACERONE) 200 mg | mouth Daily. | tablet | | 3/20 | | e | | tablet | | | | 18 | | | + + +--------+---------+------+------+-------+ | | Take 1 tablet by | | | | | Activ | | HYDROcodone-acetamin | mouth as needed. | | | | | e | | ophen (NORCO) 10-325 | | | | | | | | mg per tablet | | | | | | | + + +--------+---------+------+------+-------+ | ipratropium | ipratropium bromide | | | | | Activ | | (ATROVENT) 0.06% | 42 mcg (0.06 %) | | | | | e | | nasal spray | nasal spray [place]ley 2 | | | | | | | | sprays 3 times a day | | | | | | | | by intranasal | | | | | | | | route. | | | | | | + + +--------+---------+------+------+-------+ | clopidogrel | Take 1 tablet by | 30 | 11 | 11/3 | 11/3 | Activ | | (PLAVIX) 75 mg | mouth Daily. | tablet | | 0/20 | 0/20 | e | | tablet | | | | 18 | 19 | | + + +--------+---------+------+------+-------+ | pantoprazole | Take 1 tablet by | 30 | 5 | 11/3 | | Activ | | (PROTONIX) 40 mg | mouth every morning | tablet | | 0/20 | | e | | tablet | (before breakfast). | | | 18 | | | + + +--------+---------+------+------+-------+ | ergocalciferol | | | | 01/0 | | Activ | | (VITAMIN D-2) 50,000 | | | | 4/20 | | e | | units capsule | | | | 19 | | | + + +--------+---------+------+------+-------+ | beclomethasone | QNASL 80 | | | | | Activ | | (QNASL) 80 mcg/nasal | mcg/actuation nasal | | | | | e | | spray | aerosol spray [place]ley | | | | | | | | 2 sprays every day | | | | | | | | by intranasal route | | | | | | | | at bedtime. | | | | | | + + +--------+---------+------+------+-------+ | predniSONE | | | | 12/1 | | Activ | | (DELTASONE) 20 mg | | | | 2/20 | | e | | tablet | | | | 18 | | | + + +--------+---------+------+------+-------+ | | Take 1 tablet by | 60 | 5 | 02/2 | | Activ | | sacubitril-valsartan | mouth 2 times daily. | tablet | | 0/20 | | e | | (ENTRESTO) 49-51 mg | | | | 19 | | | | per tablet | | | | | | | + + +--------+---------+------+------+-------+ | metoprolol | Take 1 tablet by | | | 03/2 | | Activ | | succinate | mouth 2 times daily. | | | 120 | | e | | (TOPROL-XL) 50 mg 24 | | | | 19 | | | | hr tablet | | | | | | | + + +--------+---------+------+------+-------+ | torsemide | Take 2 tablets by | 90 | 3 | 03/2 | | Activ | | (DEMADEX) 10 mg | mouth in am, and 1 | tablet | | 8/20 | | e | | tablet | tablet by mouth in | | | 19 | | | | | the afternoon | | | | | | + + +--------+---------+------+------+-------+ | spironolactone | Take 1 tablet by | 30 | 3 | 03/2 | | Activ | | (ALDACTONE) 25 mg | mouth Daily. | tablet | | 8/20 | | e | | tablet | | | | 19 | | | + + +--------+---------+------+------+-------+ | atorvaSTATin | TAKE ONE TABLET BY | 90 | 3 | 04/0 | | Activ | | (LIPITOR) 80 MG | MOUTH EVERY DAY IN | tablet | | 1/20 | | e | | tablet | THE EVENING | | | 19 | | | + + +--------+---------+------+------+-------+ | atorvaSTATin | TAKE ONE TABLET BY | 30 | 5 | 08/2 | 04/0 | Disco | | (LIPITOR) 80 MG | MOUTH EVERY DAY IN | tablet | | 2/20 | 1/20 | ntinu | | tablet | THE EVENING | | | 18 | 19 | ed | + + +--------+---------+------+------+-------+ | metoprolol | Take 1 tablet by | 60 | 3 | 09/07 | 11/06 | Disco | | succinate | mouth 2 times daily. | tablet | | 01/24 | 09/26 | ntinu | | (TOPROL-XL) 50 mg 24 | 75 mg am-pm for 1 | | | 19 | 19 | ed | | hr tablet | week 08/16/18 75 mg | | | | | | | | am-pm 1 week | | | | | | | | 08/23/18 100 am-pm | | | | | | | | 08/30/18 | | | | | | + + +--------+---------+------+------+-------+ Active Problems +---------+ + | Problem | Noted Date | +---------+ + | Fatigue | 09/17/2018 | +---------+ + + + | Overview: 48-HOUR HOLTER MONITOR REPORT 08/26/2018 - The | | predominant rhythm is sinus rhythm with ventricular paced via ICD | | with the heart rate ranging between 52 and 80 beats per minute. | | The average heart rate was 63 beats per minute during the 48:32 | | hour recording. 10 ventricular singles. 320 runs of sinus | | bradycardia with the longest run 4535 beats at a minimum rate of | | 52 beats per minute (10:04-2). The patient did not return a diary | | or report any symptoms. | + + + + + | Rhinorrhea | 08/13/2018 | + + + | COPD (chronic obstructive pulmonary disease) ([facility]) | 05/14/2018 | + + + + + | Last Assessment & Plan: A:-Patient on room air, ambulating | | the halls. C/O shortness of breath at times with exertion, | | however subjectively slightly improving.-Uses nasal cannula as | | needed.-Lungs sound clear during this assessment.-Tobacco free | | for one year.P:-Continue with current therapy. | | | |P: | |-Continue with current therapy. | + + + + + | Actinic keratosis | 04/14/2018 | + + + | Basal cell carcinoma of lower extremity | 04/14/2018 | + + + | Benign neoplasm of skin | 04/14/2018 | + + + | Hypercholesterolemia | 04/14/2018 | + + + | Metabolic syndrome X | 04/14/2018 | + + + | Neoplasm of uncertain behavior of skin of trunk | 04/14/2018 | + + + | Polyp of colon | 04/14/2018 | + + + | GERD (gastroesophageal reflux disease) | 11/12/2017 | + + + | POSTAGE MACHINE OPERATOR-D (AICKatie) Medtronic 10/16/17 EULOGIO Darby | 10/19/2017 | + + + + + | Overview: Formatting of this note may be different from the | | original. MODEL NAME MODEL# SERIAL# DATE IMPLANTED GENERATOR | | Medtronic [id number] 10/16/17 RV LEAD Medtronic [id number] | | [id number] 10/16/17 A LEAD Medtronic [id number] 10/16/17 | | Coronary Sinus LEAD Medtronic [id number] 10/16/17 | | Indication: ischemic cardiomyopathy with reduced EF 30-35% Last | | Assessment & Plan: Medtronic AICD Placed in 10/2017 at [facility]. | | A:-Patient ventricular paced 100% this morning. No arrhythmias on | | telemetry.P:-No acute therapy. Continue current therapy. | | | | Last Assessment & Plan: Medtronic AICD Placed in 10/2017 at [facility]. | | | |A: | |-Patient ventricular paced 100% this morning. No arrhythmias on telemetry. | | | |P: | |-No acute therapy. Continue current therapy. | + + + + + | Implantable defibrillator reprogramming/check | 10/19/2017 | + + + | H/O atrial flutter | 10/19/2017 | + + + | Acute on chronic systolic congestive heart failure (HCC) | 10/17/2017 | + + + + + | Last Assessment & Plan: A: | | -Patient appears to be euvolemic this exam. | | -Does elicit shortness of breath with activity. | | | | P: | | -Awaiting heart transplant team recommendations. | | -Continue current medical therapy. | + + + + + | Ischemic cardiomyopathy | 05/26/2017 | + + + + + | Overview: S/P Medtronic POSTAGE MACHINE OPERATOR-D 10-16-17 Dr Darby, [facility] Scan | | 10/13/17 shows No Significant tracer uptake within mid- to - | | distal anterior wall/interventricular septum and apex | | corresponding to same non- perfused areas seen on myocardial rest | | perfusion scan , compatible with nonviable myocardium in these | | regions.Echocardiogram 11/24/2017 shows Mild left atrial | | dilatation, mild left ventricular dilatation with him mild to | | moderate eccentric left ventricular hypertrophy, there is a | | segmental wall motion abnormality with severe hypokinesis of the | | entire anterior and anteroseptal region, overall, left | | ventricular systolic function is moderately decreased, LVEF is | | 35-40%, mild mitral valve regurgitation, mild tricuspid valve | | regurgitation, borderline pulmonary hypertension with a peak | | systolic pressure of 35-40 mmHg, pacemaker lead in the right | | ventricle, normal IVC with normal respiratory | | collapse.Echocardiogram 04/02/2018 shows mild biatrial dilatation, | | mild left ventricular dilatation with mild eccentric left | | ventricular hypertrophy, there is a segmental wall motion | | abnormality with severe hypokinesis of the entire anterior and | | anteroseptal region. Overall, left ventricular systolic function | | is moderately decreased. LVEF is 30-35%, grade 1 left ventricular | | diastolic dysfunction, mild mitral valve regurgitation, normal | | right-sided pressure, normal IVC with normal respiratory | | collapse, when compared to echocardiogram on 11/25/17, left | | ventricular systolic function continued to deteriorate. Last | | Assessment & Plan: 03/2018: LVEF of 35%. 04/2018: LVEF of 25%.A: | | Currently denying chest pain or discomfort with ambulation. | | Understands potential for coronary angiogram with likely stent | | placement.P:-Continue current therapy.-Await for heart | | catheterization.-Awaiting recommendations from heart transplant | | team. | + + + + + | Coronary 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 involving lummi coronary artery of | 04/06/2017 | | lummi heart without angina pectoris | | + + + + + | Overview: NM on 05/09/2018 shows Decreased uptake on stress and | | rest of the anterior wall, septum and apex consistent with | | infarct, dilation of the left ventricular cavity consistent with | | ischemic cardiomyopathy, (High risk, left ventricular ejection | | fraction is calculated at 18%, Sy Jay DO.CV on | | 05/19/2018 shows 95% stenosis of the ostial circumflex treated | | with angioplasty only with a 3.75 x 16 NC balloon with <10% | | residual stenosis, the balloon was, iFR of the LAD was negative | | at 0.94%, by Khurram Canas MD.Stress test on 05/02/2018 shows | | decreased uptake on stress and rest of the anterior wall, septum | | and apex consistent with infarct, dilation of the left | | ventricular cavity consistent with ischemic cardiomyopathy, (High | | risk) left ventricular ejection fraction is calculated at | | 18%.Cardiac Cath ordered by Arya Christian 10/15/17 shows | | successful percutaneous coronary continue aggressive cardiac risk | | factor management , intervention to the ostial left circumflex | | with one 3.0 x 18 mm resolute oseas drug - eluting stent , | | successful percutaneous coronary transluminal angioplasty of the | | distal left main extending into the left anterior descending | | coronary artery with a final kissing balloon inflation with a 3.5 | | mm noncompliant and 2.5 mm complaint balloon, recommendations ; | | continue clopidogrel 75 mg daily for at least 12 months , | | therapy given bifurcation and left main stenting with multiple | | stent layers if tolerating , continue with Asprin 81 mg daily | | indefinitely , continue aggressive cardiac risk management , | | optimal medical care for ischemic cardiomyopathy Cardiac Cath | | 10/04/17 shows Systemic hypotension, upper normal left | | ventricular end-diastolic pressure, severe in-stent stenosis of | | left main to ostial LAD stent, severe in-stent stenosis ostial | | proximal left circumflex stent, mild to moderate RCA disease, | | ANNA grade 1 flow to distal LAD Delmer Gomez M.D., | | F.A.C.C.Echocardiogram 06/04/17 shows Mild left atrial dilatation, | | Normal left ventricular size. There is a mild hypokinesis of the | | anteriorwall. Overall, left ventricular systolic function is | | low-normal. LVEF is 50-55%,Normal valvular structure,Mild | | pulmonary hypertension with a peak systolic pressure 40-45 | | mmHg,Normal IVC with normal respiratory collapse,When compared to | | echocardiography on 05/07/17, left ventricular systolic function | | is significantly improved and now normalized. Echocardiogram | | 05/07/17 shows, Mild left atrial dilatation, Normal left | | ventricular size. There is a segmental wall motionabnormality | | with thinning and severe hypokinesis of the entire anterior and | | anteroseptal region. Overall, left ventricular systolic function | | ismoderately decreased. LVEF is 35-40%, Grade 1 left ventricular | | diastolic dysfunction,Mild mitral valve agitation, Normal | | right-sided pressure, Normal IVC with normal respiratory | | collapse. Last Assessment & Plan: A:-Patient able to | | ambulate the halls without chest pain or discomfort.-Currently on | | Aspirin daily, and nitro as needed.P:-Plan for possible coronary | | revascularization after case is presented at heart team meeting. | + + + + + | Acute anterior wall MD (HCC) | 04/03/2017 | + + + + + | Overview: Transthoracic Echocardiogram 10/11/17 shows the left | | ventricular cavity size is normal , the LV function is severely | | abnormal, left ventricular systolic thickening is segment ally | | abnormal, visually estimated left ventricular ejection fraction | | is 30-35%, RV cavity size is normal, RV global systolic function | | is mildly reduced, there is mild dial ation of the as sending | | aorta, compared to the most recent exam dated 03/30/17, the LVFF | | is similar.Echocardiogram 10/03/17 shows the number of aortic | | valve leaflets cannot be identified, the left atrium is mildly | | dilated, normal left ventricular cavity size, mild concentric | | left ventricular hypertrophy, ejection fraction is visually | | estimated at 40%, thinning and severe hypokinesis distal | | anterior, anterior septal, and apical segments, aortic root | | dimension within normal limits, mild mitral regurgitation | | present, no evidence of any pericardial effusion, the pulmonic | | valve was not well visualized, normal right atrial size, normal | | right ventricular size and function, structurally normal | | tricuspid valve without significant stenosis or regurgitation, | | Insufficient amount of tricuspid regurgitation for estimation of | | pulmonary artery pressures, when compared with images of previous | | echo 06/04/17, no significant changes.Angiography and stent | | 03/15/2017 successful PCI with placement of [id number] stent in the | | distal LM and ostial LAD reducing a 100% stenotic lesion to 0% | | residual stenosis, successful PCI with placement of [id number] stent | | in the ostial LCx reducing a 90% stenotic lesion to 0% resdual | | stenosis. | + + + + + | Generalized pain | 03/24/2017 | + + + + + | Overview: Last Assessment & Plan: Variously reports in back, | | calves, inguinal regions bilaterally. Takes hydrocodone at home, | | 10-325 q6. -oxy 5-15 q3prn -apap 650 q6 (got 1000 q6 for about 7 | | days) -hm for breakthrough, has not required in some time -lido | | patches added 03/24 | | -lido patches added 03/24 | + + + + + | Abdominal aortic aneurysm (AAA) without rupture (HCC) | 03/18/2017 | + + + + + | Overview: Last Assessment & Plan: | | Disclosed by ultrasound 03/17. 3.9cm at widest. Infrarenal. | + + + + + | Coronary atherosclerosis | 03/15/2017 | + + + | Family history of sudden | 06/18/2009 | + + + | Mixed hyperlipidemia | 04/16/2009 | + + + | Nocturia | 04/16/2009 | + + + | Benign essential hypertension | 03/15/2009 | + + + + + | Overview: XR CHEST AP PORTABLE 08/26/2018-Interval resolved | | bronchovascular/interstitial thickening. Minimal left basilar | | scarring. Heart is normal in size. Cardiac pacer leads have been | | placed no evidence of pneumothorax or pleural effusion. Aorta is | | normal. No acute osseous abnormality. No acute intrathoracic | | abnormality identified. | + + + + + | Benign prostatic hyperplasia without urinary obstruction | 03/15/2009 | + + + | Family history of malignant neoplasm of gastrointestinal tract | 03/15/2009 | + + + | Family history of stroke | 03/15/2009 | + + + | Impotence of organic origin | 03/15/2009 | + + + | Neck pain | 09/07/2008 | + + + | PAD (peripheral 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) (HCC) | | + + + + + | Overview: Segmental pressures 11/24/17 Abnormal left ankle | | brachial index of 0.91 consistent with single segment disease. 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 | + + + + + + | Paroxysmal atrial flutter (HCC) | 10/12/19 | | | | 18 | 8 | + + + + | Pulmonary edema | 10/03/19 | | | | 18 | 8 | + + + + Encounters +--------+ + + + + | Date | Type | Specialty | Care Team | Description | +--------+ + + + + | 12/09/ | Office | | Randy Figueroa, | Coronary artery | | 2019 | Visit | | MD | disease involving | | | | | | lummi coronary | | | | | | artery of lummi | | | | | | heart without angina | | | | | | pectoris (Primary | | | | | | Dx); Post PTCA | +--------+ + + + + | 12/07/ | Office | | Randy Figueroa, | Coronary artery | | 2018 | Visit | | MD | disease involving | | | | | | lummi coronary | | | | | | artery of lummi | | | | | | heart without angina | | | | | | pectoris (Primary | | | | | | Dx); Post PTCA | +--------+ + + + + | 12/06/ | Refill | | Jenny, | Medication Refill | | 2018 | | | ADARSH Santo | | +--------+ + + + + | 12/05/ | Implant | | Randy Figueroa, | Remote Device | | 2018 | Monitor | | MD | Interrogation | | | | | | (Primary Dx); POSTAGE MACHINE OPERATOR-D | | | | | | (AICD) Medtronic | | | | | | 10/16/17 TXMENDY Darby; | | | | | | Ischemic | | | | | | cardiomyopathy | +--------+ + + + + | 12/02/ | Office | | Randy Figueroa, | Coronary artery | | 2018 | Visit | | MD | disease involving | | | | | | lummi coronary | | | | | | artery of lummi | | | | | | heart without angina | | | | | | pectoris (Primary | | | | | | Dx); Post PTCA | +--------+ + + + + | 12/02/ | Abstract | | Jenny, | | | 2018 | | | ADARSH Santo | | +--------+ + + + + | 11/30/ | Office | | Randy Figueroa | Coronary artery | | 2018 | Visit | | MD | disease involving | | | | | | lummi coronary | | | | | | artery of lummi | | | | | | heart without angina | | | | | | pectoris (Primary | | | | | | Dx); Post PTCA | +--------+ + + + + | 11/29/ | Telephone | Arina Alvarado, | Medication Related | | 2018 | | | ADARSH Santo | | +--------+ + + + + | 11/25/ | Office | | Randy Figueroa, | Coronary artery | | 2018 | Visit | | MD | disease involving | | | | | | lummi coronary | | | | | | artery of lummi | | | | | | heart without angina | | | | | | pectoris (Primary | | | | | | Dx); Post PTCA | +--------+ + + + + | 11/25/ | Orders Only | | Lilian Machado, | | | 2018 | | | RN | | +--------+ + + + + | 11/23/ | Office | | Randy Figueroa, | Acute on chronic | | 2018 | Visit | | MD | systolic congestive | | | | | | heart failure (HCC) | | | | | | (Primary Dx) | +--------+ + + + + | 11/23/ | Abstract | | Jenny, | | | 2018 | | | ADARSH Santo | | +--------+ + + + + | 11/18/ | Office | | Randy Figueroa, | Coronary artery | | 2018 | Visit | | MD | disease involving | | | | | | lummi coronary | | | | | | artery of lummi | | | | | | heart without angina | | | | | | pectoris (Primary | | | | | | Dx); Post PTCA | +--------+ + + + + | 11/18/ | Telephone | | Jenny, | Blood Pressure | | 2018 | | | ADARSH Santo | | +--------+ + + + + | 11/09/ | Office | | Randy Figueroa, | Coronary artery | | 2018 | Visit | | MD | disease involving | | | | | | lummi coronary | | | | | | artery of lummi | | | | | | heart without angina | | | | | | pectoris (Primary | | | | | | Dx) | +--------+ + + + + | 10/28/ | Office | | Randy Figueroa, | Coronary artery | | 2018 | Visit | | MD | disease, angina | | | | | | presence | | | | | | unspecified, | | | | | | unspecified vessel | | | | | | or lesion type, | | | | | | unspecified whether | | | | | | lummi or | | | | | | transplanted heart | | | | | | (Primary Dx); Post | | | | | | PTCA | +--------+ + + + + | 10/27/ | Telephone | | Jenny, | Other (medication | | 2018 | | | ADARSH Santo | issue) | +--------+ + + + + | 10/21/ | Office | | Randy Figueroa, | Coronary artery | | 2018 | Visit | | MD | disease, angina | | | | | | presence | | | | | | unspecified, | | | | | | unspecified vessel | | | | | | or lesion type, | | | | | | unspecified whether | | | | | | lummi or | | | | | | transplanted heart | | | | | | (Primary Dx) | +--------+ + + + + | 10/12/ | Office | | Randy Figueroa, | Coronary artery | | 2018 | Visit | | MD | disease, angina | | | | | | presence | | | | | | unspecified, | | | | | | unspecified vessel | | | | | | or lesion type, | | | | | | unspecified whether | | | | | | lummi or | | | | | | transplanted heart | | | | | | (Primary Dx); Post | | | | | | PTCA | +--------+ + + + + | 10/07/ | Office | | Randy Figueroa, | Coronary artery | | 2018 | Visit | | MD | disease, angina | | | | | | presence | | | | | | unspecified, | | | | | | unspecified vessel | | | | | | or lesion type, | | | | | | unspecified whether | | | | | | lummi or | | | | | | transplanted heart | | | | | | (Primary Dx); Post | | | | | | PTCA | +--------+ + + + + | 10/07/ | Telephone | | Jenny, | Blood Pressure | | 2018 | | | ADARSH Santo | | +--------+ + + + + | 10/04/ | Telephone | | Randy Figueroa, | Other | | 2018 | | | MD | | +--------+ + + + + | 09/30/ | Office | | Randy Figueroa, | Coronary artery | | 2018 | Visit | | MD | disease, angina | | | | | | presence | | | | | | unspecified, | | | | | | unspecified vessel | | | | | | or lesion type, | | | | | | unspecified whether | | | | | | lummi or | | | | | | transplanted heart | | | | | | (Primary Dx); Post | | | | | | PTCA | +--------+ + + + + | 09/28/ | Office | | Randy Figueroa, | Coronary artery | | 2018 | Visit | | MD | disease, angina | | | | | | presence | | | | | | unspecified, | | | | | | unspecified vessel | | | | | | or lesion type, | | | | | | unspecified whether | | | | | | lummi or | | | | | | transplanted heart | | | | | | (Primary Dx); Post | | | | | | PTCA | +--------+ + + + + | 09/21/ | Office | | Randy Figueroa, | Coronary artery | | 2018 | Visit | | MD | disease, angina | | | | | | presence | | | | | | unspecified, | | | | | | unspecified vessel | | | | | | or lesion type, | | | | | | unspecified whether | | | | | | lummi or | | | | | | transplanted heart | | | | | | (Primary Dx) | +--------+ + + + + | 09/21/ | Office | | Jenny, | PAD (peripheral | | 2018 | Visit | | ADARSH Santo | 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) | | | | | | (HCC) (Primary Dx); | | | | | | Benign essential | | | | | | hypertension; | | | | | | Fatigue, unspecified | | | | | | type; Acute | | | | | | anterior wall MD | | | | | | (HCC); Coronary | | | | | | 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 | | | | | | involving lummi | | | | | | coronary artery of | | | | | | lummi heart without | | | | | | angina pectoris; | | | | | | Ischemic | | | | | | cardiomyopathy; | | | | | | Abdominal aortic | | | | | | aneurysm (AAA) | | | | | | without rupture | | | | | | (HCC); Mixed | | | | | | hyperlipidemia | +--------+ + + + + | 09/14/ | Office | | Randy Figueroa, | Coronary artery | | 2018 | Visit | | MD | disease, angina | | | | | | presence | | | | | | unspecified, | | | | | | unspecified vessel | | | | | | or lesion type, | | | | | | unspecified whether | | | | | | lummi or | | | | | | transplanted heart | | | | | | (Primary Dx); Post | | | | | | PTCA | +--------+ + + + + from Last 3 Months Family History + +------+ + + | Relation | Name | Status | Comments | + +------+ + + | Father | | | | + +------+ + + | Mother | | | | + +------+ + [...] + + + | Blood Pressure | 104/72 | 09/21/2018953 PST | + + + + | Pulse | 58 | 09/21/2018953 PST | + + + + | Temperature | 36.4 C (97.5 F) | 08/26/2018 1117 PST | + + + + | Respiratory Rate | 18 | 09/21/2018953 PST | + + + + | Oxygen Saturation | 95% | 08/26/2018 1430 PST | + + + + | Inhaled Oxygen | - | - | | Concentration | | | + + + + | Weight | 100.3 kg (221 lb 1.9 | 09/21/2018953 PST | | | oz) | | + + + + | Height | 175.3 cm (5' 9") | 09/21/2018953 PST | + + + + | Body Mass Index | 32.65 | 09/21/2018953 PST | + + + + Plan of Treatment +--------+ + + + + | Date | Type | Specialty | Care Team | Description | +--------+ + + + + | 12/14/ | Office | | Wongsuwan, Suwong, | | | 2018 | Visit | | MD [address] | | | | | | [place], | | | | | | [place] [address] | | | | | | [phone] | | | | | | | | +--------+ + + + + | 12/16/ | Office | | Randy Figueroa, | | | 2018 | Visit | | MD [address] | | | | | | [place], | | | | | | [place] [address] | | | | | | [phone] | | | | | | | | +--------+ + + + + | 12/21/ | Office | | Randy Figueroa, | | | 2018 | Visit | | MD [address] | | | | | | [place], | | | | | | [place] [address] | | | | | | [phone] | | | | | | | | +--------+ + + + + | 12/23/ | Office | | Randy Figueroa, | | | 2018 | Visit | | MD [address] | | | | | | [place], | | | | | | [place] [address] | | | | | | [phone] | | | | | | | | +--------+ + + + + | 12/28/ | Office | | Randy Figueroa, | | | 2018 | Visit | | MD [address] | | | | | | [place], | | | | | | [place] [address] | | | | | | [phone] | | | | | | | | +--------+ + + + + | 12/30/ | Office | | Randy Figueroa, | | | 2018 | Visit | | MD [address] | | | | | | [place], | | | | | | [place] [address] | | | | | | [phone] | | | | | | | | +--------+ + + + + | 01/04/ | Office | | Randy Figueroa, | | | 2018 | Visit | | MD [address] | | | | | | [place], | | | | | | [place] [address] | | | | | | [phone] | | | | | | | | +--------+ + + + + | 01/06/ | Office | | Randy Figueroa, | | | 2018 | Visit | | MD [address] | | | | | | [place], | | | | | | [place] [address] | | | | | | [phone] | | | | | | | | +--------+ + + + + | 01/11/ | Office | | Randy Figueroa, | | | 2018 | Visit | | MD [address] | | | | | | [place], | | | | | | [place] [address] | | | | | | [phone] | | | | | | | | +--------+ + + + + | 03/24/ | Procedure | | | | | 2018 | visit | | | | +--------+ + + + + | 03/24/ | Office | | Jenny, | | | 2019 | Visit | | ADARSH Santo [address] | | | | | | [place], | | | | | | [place] [address] | | | | | | [phone] | | | | | | | | +--------+ + + + + + + + + + | Health Maintenance | Due Date | Last Done | Comments | + + + + + | Hepatitis C | | | | | Screening | 5 | | | + + + + + | Vaccine: | | | | | Dtap/Tdap/Td (1 - | 4 | | | | Tdap) | | | | + + + + + | Vaccine: | | | | | Pneumococcal 19-64 | 4 | | | | (PPSV23 only) Medium | | | | | Risk (1 of 1 - | | | | | PPSV23) | | | | + + + + + | Colorectal Cancer | | | | | Screening | 5 | | | | (Colonoscopy) | | | | + + + + + | Vaccine: Zoster (1 | | | | | of 2) | 5 | | | + + + + + | Vaccine: Influenza | Completed | 07/21/2018 | | + + + + + Implants + +--------+--------+ +--------+--------+--------+ | Implanted | Type | Area | Manufacture | Device | Expira | Model | | | | | r | | tion | / | | | | | | Identi | Date | Serial | | | | | | fier | | / Lot | + +--------+--------+ +--------+--------+--------+ | Angioseal Vip 6f - | Generi | Left: | TERUMO LORIN | [id number] | 12/05/ | [id number] | | [id number]: Qty: 1 | c | Groin | - TERU | [id number] | 2018 | / | | on 05/19/2018 by Thew, | | | | 20 | | /[id number] | | Khurram Isabel MD | | | | | | 371 | + +--------+--------+ +--------+--------+--------+ | Meteorologist In Charge-D MedtronicImplanted: | Implan | | MEDTRONIC - | | | [id number] | | Qty: 1 on 10/16/2017 by | table | | MEDT | | | Q | | Michael Darby MD | Cardio | | | | | /[id number] | | | verter | | | | | [id number] | | | | | | | | / | | | Defibr | | | | | | | | illato | | | | | | | | r | | | | | | + +--------+--------+ +--------+--------+--------+ | Ra Lead-10/16/2017Implanted: | Lead | | MEDTRONIC - | | | [id number] | | Qty: 1 on 10/16/2017 by | | | MEDT | | | /[id number] | | Michael Darby MD | | | | | | [id number] | | | | | | | | / | + +--------+--------+ +--------+--------+--------+ | Rv Lead-10/16/2017Implanted: | Lead | | MEDTRONIC - | | | [id number] | | Qty: 1 on 10/16/2017 by | | | MEDT | | | | | Michael Darby MD | | | | | | /[id number] | | | | | | | | [id number] | | | | | | | | / | + +--------+--------+ +--------+--------+--------+ | Lv Lead-10/16/2017Implanted: | Lead | | MEDTRONIC - | | | [id number] | | Qty: 1 on 10/16/2017 by | | | MEDT | | | /[id number] | | Michael Darby MD | | | | | | [id number] | | | | | | | | / | + +--------+--------+ +--------+--------+--------+ | Xience Alpine Everolimus | Stent | N/A: | ISAACS | | 12/29/ | [id number] | | Eluting Coronary Stent System | | [place] | DIAGNOSTICS | | 2019 | 0-18 / | | Implanted: Qty: 1 on | | ry | - DAINA | | | | | 03/15/2017 by Monse Ross, | | | | | | /[id number] | | MD | | | | | | 61 | + +--------+--------+ +--------+--------+--------+ | Xience Alpine Everolimus | Stent | N/A: | ISAACS | | 11/03/ | [id number] | | Eluting Coronary Stent System | | [place] | DIAGNOSTICS | | 2019 | 0-23 / | | Implanted: Qty: 1 on | | ry | - DAINA | | | | | 03/15/2017 by Monse Ross, | | | | | | /[id number] | | MD | | | | | | 41 | + +--------+--------+ +--------+--------+--------+ | Kit Perclose Proglide 6fr - | | Right: | ISAACS | [id number] | | [id number] | | [id number]: Qty: 1 | | Alessiain | VASCULAR - | [id number] | | 03 / / | | on 05/19/2018 by Missael, | | | ABVA | 89 | | | | Khurram Isabel MD | | | | | | | + +--------+--------+ +--------+--------+--------+ | Kit Perclose Proglide 6fr - | | Right: | ISAACS | [id number] | | 13240- | | [id number]: Qty: 1 | | Groin | VASCULAR - | [id number] | | 03 / / | | on 05/19/2018 by Thew, | | | ABVA | 89 | | | | Khurram Isabel MD | | | | | | | + +--------+--------+ +--------+--------+--------+ Procedures + +--------+ + + + | Procedure Name | Priori | Date/Time | Associated Diagnosis | Comments | | | ty | | | | + +--------+ + + + | DEVICE | Routin | 12/05/2018 | Remote Device | Results for this | | INTERROGATION- | e | 4599 PDT | Interrogation 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 | | | | | 10/16/17 EULOGIO Darby | | | | | | Ischemic | | | | | | cardiomyopathy | | + +--------+ + + + | BASIC METABOLIC | Routin | 12/01/2018 | | Results for this | | PANEL | e | 0000 PDT | | procedure are in the | | | | | | results section. | + +--------+ + + + | EXTERNAL LAB: BUN | Routin | 12/01/2018 | | Results for this | | | e | 0000 PDT | | procedure are in the | | | | | | results section. | + +--------+ + + + | EXTERNAL LAB: | Routin | 12/01/2018 | | Results for this | | GLUCOSE | e | 0000 PDT | | procedure are in the | | | | | | results section. | + +--------+ + + + | EXTERNAL LAB: | Routin | 12/01/2018 | | Results for this | | CALCIUM | e | 0000 PDT | | procedure are in the | | | | | | results section. | + +--------+ + + + | EXTERNAL LAB: CARBON | Routin | 12/01/2018 | | Results for this | | DIOXIDE | e | 0000 PDT | | procedure are in the | | | | | | results section. | + +--------+ + + + | EXTERNAL LAB: | Routin | 12/01/2018 | | Results for this | | CHLORIDE | e | 0000 PDT | | procedure are in the | | | | | | results section. | + +--------+ + + + | EXTERNAL LAB: | Routin | 12/01/2018 | | Results for this | | POTASSIUM | e | 0000 PDT | | procedure are in the | | | | | | results section. | + +--------+ + + + | EXTERNAL LAB: SODIUM | Routin | 12/01/2018 | | Results for this | | | e | 0000 PDT | | procedure are in the | | | | | | results section. | + +--------+ + + + | EXTERNAL LAB: EGFR | Routin | 12/01/2018 | | Results for this | | | e | 0000 PDT | | procedure are in the | | | | | | results section. | + +--------+ + + + | EXTERNAL LAB: | Routin | 12/01/2018 | | Results for this | | CREATININE | e | 0000 PDT | | procedure are in the | | | | | | results section. | + +--------+ + + + | COMPREHENSIVE | Routin | 11/12/2018 | | Results for this | | METABOLIC PANEL | e | 0000 PST | | procedure are in the | | | | | | results section. | + +--------+ + + + | EXTERNAL LAB: BUN | Routin | 11/12/2018 | | Results for this | | | e | 0000 PST | | procedure are in the | | | | | | results section. | + +--------+ + + + | EXTERNAL LAB: | Routin | 11/12/2018 | | Results for this | | GLUCOSE | e | 0000 PST | | procedure are in the | | | | | | results section. | + +--------+ + + + | EXTERNAL LAB: | Routin | 11/12/2018 | | Results for this | | CALCIUM | e | 0000 PST | | procedure are in the | | | | | | results section. | + +--------+ + + + | EXTERNAL LAB: | Routin | 11/12/2018 | | Results for this | | CHLORIDE | e | 0000 PST | | procedure are in the | | | | | | results section. | + +--------+ + + + | EXTERNAL LAB: | Routin | 11/12/2018 | | Results for this | | POTASSIUM | e | 0000 PST | | procedure are in the | | | | | | results section. | + +--------+ + + + | EXTERNAL LAB: SODIUM | Routin | 11/12/2018 | | Results for this | | | e | 0000 PST | | procedure are in the | | | | | | results section. | + +--------+ + + + | EXTERNAL LAB: EGFR | Routin | 11/12/2018 | | Results for this | | | e | 0000 PST | | procedure are in the | | | | | | results section. | + +--------+ + + + | EXTERNAL LAB: | Routin | 11/12/2018 | | Results for this | | CREATININE | e | 0000 PST | | procedure are in the | | | | | | results section. | + +--------+ + + + from Last 3 Months Results Device Interrogation - Remote (12/05/2018 2359) + + + | Narrative | Performed At | + + + | Randy | DONNA | | MD [place] 11/05/2018 10:33Date of Remote Interrogation: | | | 10/19/18 Refer to [facility] documentation and remote PDF scanned into | | | [facility] for remote interrogation results. Data collected by RONNY Butt | | | ALFONSO CHAPMAN Presenting rhythm: atrial sensed ventricular paced with | | | rate at 53-57 beats. 0 mode switch episodes accounting for 0% of the | | | time0 atrial high rate episodes. 0 ventricular high rate episodes. | | | <0.1 PVC singles/hour <0.1 PVC | | | runs/hour Histogram good Battery | | | longevity 9.1 years.Apparent normal and stable device | | | function.Device interrogation due in office on 12/22/18Patient | | | notified. | | |<0.1 PVC singles/hour | | |<0.1 PVC runs/hour | | |Histogram good Battery longevity 9.1 years. | | |Apparent normal and stable device function. | | |Device interrogation due in office on 12/22/18 | | |Patient notified. | | | | | | | | + + + + +---------+ + + | Performing | Address | City/State/Zipcode | Phone Number | | Organization | | | | + +---------+ + + | [facility] | | | | + +---------+ + + External Lab: DONTE (12/01/2018)Only the most recent of 2 results within the time period is i ncluded. + +--------+ + + | Component | Value | Ref Range | Performed At | + +--------+ + + | BUN, External | 37 (A) | 6 - 23 | | + +--------+ + + + + | Other Results Text | + + | [facility] | + + External Lab: Glucose (12/01/2018)Only the most recent of 2 results within the time period is included. + +---------+ + + | Component | Value | Ref Range | Performed At | + +---------+ + + | Glucose, External | 107 (A) | 70 - 100 | | + +---------+ + + + + | Other Results Text | + + | [facility] | + + External Lab: Calcium (12/01/2018)Only the most recent of 2 results within the time period is included. + +-------+ + + | Component | Value | Ref Range | Performed At | + +-------+ + + | Calcium, External | 9.2 | 8.5 - 10.3 | | + +-------+ + + + + | Other Results Text | + + | [facility] | + + External Lab: Carbon Dioxide (12/01/2018) + +-------+ + + | Component | Value | Ref Range | Performed At | + +-------+ + + | Carbon Dioxide, | 25 | 19 - 31 | | | External | | | | + +-------+ + + + + | Other Results Text | + + | [facility] | + + External Lab: Chloride (12/01/2018)Only the most recent of 2 results within the time period is included. + +-------+ + + | Component | Value | Ref Range | Performed At | + +-------+ + + | Chloride, External | 101 | 95 - 112 | | + +-------+ + + + + | Other Results Text | + + | [facility] | + + External Lab: Potassium (12/01/2018)Only the most recent of 2 results within the time perio d is included. + +-------+ + + | Component | Value | Ref Range | Performed At | + +-------+ + + | Potassium, External | 5.1 | 3.6 - 5.1 | | + +-------+ + + + + | Other Results Text | + + | [facility] | + + External Lab: Sodium (12/01/2018)Only the most recent of 2 results within the time period i s included. + +-------+ + + | Component | Value | Ref Range | Performed At | + +-------+ + + | Sodium, External | 139 | 132 - 143 | | + +-------+ + + + + | Other Results Text | + + | [facility] | + + External Lab: eGFR (12/01/2018)Only the most recent of 2 results within the time period is included. + +--------+ + + | Component | Value | Ref Range | Performed At | + +--------+ + + | eGFR, External | 31 (A) | 60 - 99,999 | | + +--------+ + + + + | Specimen | + + | Blood | + + + + | Other Results Text | + + | [facility] | + + External Lab: Creatinine (12/01/2018)Only the most recent of 2 results within the time maggy od is included. + + + + + | Component | Value | Ref Range | Performed At | + + + + + | Creatinine, External | 2.13 (A) | 0.7 - 1.25 | | + + + + + + + | Specimen | + + | Blood | + + + + | Other Results Text | + + | [facility] | + + Basic Metabolic Panel (12/01/2018) + +-------+ + + | Component | Value | Ref Range | Performed At | + +-------+ + + | Anion Gap | 18 | 7 - 21 mmol/L | | + +-------+ + + | Bun/Creatinine | 17.4 | 6.0 - 28.6 | | + +-------+ + + + + | Specimen | + + | Blood | + + Comprehensive Metabolic Panel (11/12/2018) + +-------+ + + | Component | Value | Ref Range | Performed At | + +-------+ + + | Anion Gap | 18 | 7 - 21 | | + +-------+ + + | Bun/Creatinine | 20.4 | 6.0 - 28.6 | | + +-------+ + + + + | Specimen | + + | Blood | + + from Last 3 Months Insurance + +--------+ +--------+ +---------+ | Payer | Benefi | Subscriber | Type | Phone | Address | | | t Plan | ID | | | | | | / | | | | | | | Group | | | | | + +--------+ +--------+ +---------+ | [employer] | [employer] | [id number] | Medica | [phone] | | MEDICAID HMO | HEALTH | | id | [id number] | | | | MDCD | | | | | | | [place] | | | | | + +--------+ +--------+ +---------+ | [employer] | [employer] | [id number] | Indemn | | | | | [place] | | ity | | | | | [place] | | | | | | | [place] | | | | | | | [place] | | | | | + +--------+ +--------+ +---------+ | [employer]MIN | [employer] | [id number] | Indemn | | | | | NS | | ity | | | | | ADMIN | | | | | | | [place] | | | | | | | [place] | | | | | + +--------+ +--------+ +---------+ + +--------+ +--------+ + + | Guarantor Name | Accoun | Relation to | Date | Phone | Billing Address | | | t Type | Patient | of | | | | | | | | | | + +--------+ +--------+ + + | RON MCKEON | Person | Self [birth year] Home: | [address] | | | al/Fam | | [phone] | [phone] | [place] | | | [place] | | | [phone] | [phone] | + +--------+ +--------+ + +
--- OUTSIDE RECORDS SUMMARY | ~2018-12-10 | XMS | Encounter Summary ---
Demographics + + + | Address | [address] | | | [place] [address] | + + + | Home Phone | | + + + | Preferred Language | Unknown | + + + | Marital Status | | + + + | Nondenominational Affiliation | Unknown | + + + | Race | Unknown | + + + | Ethnic Group | Unknown | + + + Author + + + | Author | [facility] | | | and [place] | + + + | Organization | [facility] | | | and [place] | + + + | Address | Unknown | + + + | Phone | Unavailable | + + + Support + + + + + | Name | Relationship | Address | Phone | + + + + + | [place] | [place] | [place] | | | | | [address] | | + + + + + Care Team Providers + +------+ + | Care Compress Trucker Name | Role | Phone | + +------+ + | Young Haque DO | PCP | | + +------+ + Reason for Visit + + + | Reason | Comments | + + + | Follow-up | test results | + + + | Coronary Artery | | | Disease | | + + + | Hypertension | | + + + | Congestive Heart | | | Failure | | + + + Follow Up (Routine) +--------+--------+ + + + + | Status | Reason | Specialty | Diagnoses / | Referred By | Referred To | | | | | Procedures | Contact | Contact | +--------+--------+ + + + + | Closed | | Cardiology | Diagnoses | Christine, | Carolina, | | | | | | Jeet | MD Randy | | | | | Atherosclero | MD Lauro | [address] [place] [address] | | | | | tic heart | [address] | | | | | disease of | [address] | [place], | | | | | [place] | [place], | [place] [address] | | | | | coronary | [place] | Phone: | | | | | artery | [address] | [phone] | | | | | without | Phone: | Fax: | | | | | angina | [phone] | [phone] | | | | | pectoris ST | Fax: | | | | | | elevation | [phone] | | | | | | (STEMI) | | | | | | | myocardial [...] | | | | | | | Tachycardia, | | | | | | | unspecified | | | | | | | Ischemic | | | | | | | cardiomyopat | | | | | | | hy Presence | | | | | | | of | | | | | [...] Description | +--------+---------+ + + + | 09/21/ | Office | [facility] [place] | [place], | PAD (peripheral | | 2019 | Visit | CARDIOLOGY [address] | 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, 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[address] | 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) | | | | [address] [place], | [address] [place], | ([facility]) (Primary Dx); | | | | [place] [address] | [place] [address] | Benign essential | | | | [phone] | [phone] | hypertension; | | | | | | Fatigue, unspecified | | | | | | type; Acute | | | | | | anterior wall SC | | | | | | (HCC); Coronary | | | | | | 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 | | | | | | involving [place] | | | | | | coronary artery of | | | | | | [place] tribes heart without | | | | | [...] | | | | | hyperlipidemia | +--------+---------+ + + + Social History [...] + + + as of this encounter Last Filed Vital Signs + + + + | Vital Sign | Reading | Time Taken | + + + + | Blood Pressure | 104/72 | 09/21/2018953 PST | + + + + | Pulse | 58 | 09/21/2018953 PST | + + + + | Temperature | - | - | + + + + | Respiratory Rate | 18 | 09/21/2018953 PST | + + + + | Oxygen Saturation | - | - | + + + + | Inhaled Oxygen | - | - | | Concentration | | | + + + + | Weight | 100.3 kg (221 lb 1.9 | 09/21/2018 0954 PST | | | oz) | | + + + + | Height | 175.3 cm (5' 9") | 09/21/2018 0954 PST | + + + + | Body Mass Index | 32.65 | 09/21/2018 0954 PST | + + + + in this encounter Progress Notes Hansa Alvarado ARNP - 09/21/2018 1000 PSTFormatting of this note may be different from the original. PATIENT NAME: Bob Will : 1955: AGE: 62 y.o. PRIMARY CARE: Young Haque DO OUTPATIENT FOLLOW UP VISIT Date of Service: 09/21/2018 HISTORY OF PRESENT ILLNESS: Bob Will is a 62 y.o. male with a history of coronary 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 post recen t anterior wall SC, post PTCA and stents of the left main, LAD and LCx on 03/15/17, cardiac sh ock, left atrial appendage thrombus, recent status post stents to, MAORI LIAISON ADVISER-D placement in [facility] o n 10/17/2017.Heis being seen today for follow up cardiomyopathy and coronary artery dise ase. He is being seen today for follow up coronary 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 and cardiomyopathy. He was last seen 07/22/2018 at which time he continues in the way of up titrating metoprolo l succinate. He would like to go back to cardiac rehabilitation since he has not been able to exercise on his own. He has had no angina or no increase in dyspnea and he has not had a ny fluid retention since the heart failure team in [place] told him to continue taking his furosemide on a daily basis. He will do a blood pressure log and bring it to his next appoin phaneuf hospital. Since that time, he was seen in the emergency department on 08/26/2018 for hypotensi on, he was at cardiac rehab when his SBP dropped to 60-70s he was feeling a little dizzy at that time. He had a 48-hour holter on 09/02/2018 and is here today for results. He has had a fair energy level. He tries to stay active. He has been going to cardiac reha bilitation and also walking at least 30 minutes every day at the [facility] in [place] with h is walker. He feels better when he does all that walking. He enjoys spending time with crystal gonsalez in his spare time. He has not had any chest pain or discomfort at rest or with ex ertion. He has had shortness of breath with walking but uses oxygen when needed He has no t had any lightheadedness or dizziness. He has not noticed palpitations. He has not had le g swelling. He is able to sleep laying down at night without any symptoms of shortness of b reath. He sleeps with oxygen in place nightly with 3 liters per minute by nasal cannula. He has had some mis happenings and some confusion with his pills. He has been talking double o f the maximum strength of Entresto twice a day. I strongly believe this is the reason he has had increase dry mouth and hypotension. MEDICAL, SURGICAL, AND PERSONAL HISTORY Past Medical, Surgical, Family, and Social History are reviewed in EPIC. CURRENT PROBLEMS Patient Active Problem List Diagnosis Acute anterior wall SC Coronary 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 involving [place] coronary artery of [place] heart without angina pectoris Ischemic cardiomyopathy MAORI LIAISON ADVISER-D (AICD) [employer] 10/16/17 [facility] Stecker Implantable defibrillator reprogramming/check H/O atrial flutter [...] COPD (chronic obstructive pulmonary disease) Rhinorrhea Fatigue CURRENT MEDICATIONS Current Outpatient Prescriptions Medication Sig Dispense Refill acetaminophen (TYLENOL) 500 mg tablet Take 1,000 mg by mouth as needed. amiodarone (PACERONE) 200 mg tablet Take 2 tablets by mouth Daily. 60 tablet 5 aspirin 81 MG tablet Take 81 mg by mouth Daily. atorvaSTATin (LIPITOR) 80 MG tablet TAKE ONE TABLET BY MOUTH EVERY DAY IN THE EVENING 3 0 tablet 5 beclomethasone (QNASL) 80 mcg/nasal spray QNASL 80 mcg/actuation nasal aerosol spray [place] 2 sprays every day by intranasal route at bedtime. Cholecalciferol (VITAMIN D-3) 17774 units CAPS Take by mouth Once a week. clopidogrel (PLAVIX) 75 mg tablet Take 1 tablet by mouth Daily. 30 tablet 11 ENTRESTO 97-103 MG per tablet Take 2 tablets by mouth 2 times daily. ergocalciferol (VITAMIN D-2) 50,000 units capsule furosemide (LASIX) 20 mg tablet TAKE ONE TABLET BY MOUTH DAILY 30 tablet 4 gabapentin (NEURONTIN) 300 mg capsule Take 300 mg by mouth 3 times daily. HYDROcodone-acetaminophen (NORCO) 10-325 mg per tablet Take 1 tablet by mouth as needed . ipratropium (ATROVENT) 0.06% nasal spray ipratropium bromide 42 mcg (0.06 %) nasal spra y [place] 2 sprays 3 times a day by intranasal route. melatonin 3 mg TABS Take 5 mg by mouth nightly. metFORMIN (GLUCOPHAGE) 500 mg tablet Take 500 mg by mouth 2 times daily (with breakfast & dinner). metoprolol succinate (TOPROL-XL) 50 mg 24 hr tablet Take 1 tablet by mouth Daily. (Gela ent taking differently: Take 50 mg by mouth 2 times daily. 75 mg am-pm for 1 week 08/16/18 75 mg am-pm 1 week 08/23/18 100 am-pm 08/30/18) 180 tablet 3 nitroglycerin (NITROSTAT) 0.[address] 1 tablet under the tongue every 5 shai janeth as needed for Chest pain. 25 tablet 3 pantoprazole (PROTONIX) 40 mg tablet Take 1 tablet by mouth every morning (before break fast). 30 tablet 5 predniSONE (DELTASONE) 20 mg tablet raNITIdine (ZANTAC) 300 MG tablet Take 1 tablet by mouth nightly. spironolactone (ALDACTONE) 25 mg tablet Take 1 tablet by mouth Daily. 90 tablet 3 traMADol (ULTRAM) 50 mg tablet Take 50 mg by mouth every 6 hours as needed. No current facility-administered medications for this visit. ALLERGIES No Known Allergies ROS Review of Systems Constitutional: Positive for malaise/fatigue. Negative for chills and fever. HENT: Negative for hearing loss, nosebleeds and tinnitus. Eyes: Negative for blurred vision and double vision. Respiratory: Positive for shortness of breath. Cardiovascular: Positive for orthopnea. Negative for chest pain (oxygen), palpitations and leg swelling. Gastrointestinal: Negative for abdominal pain, blood in stool, constipation, diarrhea, hear tburn, nausea and vomiting. Genitourinary: Negative for dysuria, frequency and urgency. Musculoskeletal: Positive for neck pain. Negative for back pain, falls and joint pain. Skin: Positive for itching. Negative for rash. Neurological: Negative for dizziness, tingling, tremors, seizures, loss of consciousness, w eakness and headaches. Lightheadedness- No Endo/Heme/Allergies: Bruises/bleeds easily. Psychiatric/Behavioral: Positive for memory loss. The patient is not nervous/anxious and do es not have insomnia. OBJECTIVE: PHYSICAL EXAM BP 104/72 | Pulse 58 | Resp 18 | Ht 1.753 m (5' 9") | Wt 100.3 kg (221 lb 1.9 oz) | BM I 32.65 kg/m Physical Exam Constitutional: He is oriented [...] sounds. He has no wheezes. He has no rhonchi. He has no rales. Abdominal: Soft. Normal [...] or performed during the hospital encounter of 08/26/18 ECG 12 lead Result Value Ref Range INTERPRETATION TEXT Atrial-sensed ventricular-paced rhythm Abnormal ECG When compared with ECG of 13-JAN-2018 07:54, Vent. rate has decreased BY 6 BPM Confirmed by FLORY العلي MD ([id number]) on 08/27/2018 6:38:04 AM LAB RESULTS reviewed during visit today primarily from [facility]: LIPID Lab Results Component Value Date CHOL 94 (L) 06/10/2018 TRIG 211 (H) 06/10/2018 HDL 26 (L) 06/10/2018 LDL 26 06/10/2018 CHOLHDL 3.6 06/10/2018 LDLEX 42 10/10/2017 HDLEX 21 10/10/2017 TRIGEX 131 10/10/2017 CHOLEX 89 10/10/2017 CHEMISTRY Lab Results Component Value Date GLU 127 (H) 08/26/2018 GLUEX 154 (A) 06/07/2018 NA 136 08/26/2018 NAEX 141 06/07/2018 K 5.1 08/26/2018 KEX 3.9 06/07/2018 CL 105 08/26/2018 CLEX 104 06/07/2018 CO2 24 08/26/2018 CO2EX 24 06/07/2018 CALCIUM 8.6 08/26/2018 ALKPHOS 76 08/26/2018 AST 23 08/26/2018 ASTEX 15 04/22/2018 ALT 31 08/26/2018 ALTEX 21 04/22/2018 BILITOT 0.6 08/26/2018 CREA 2.01 (H) 08/26/2018 BUN 37 (H) 08/26/2018 EGFR 42 (L) 05/21/2018 EGFREX 47 06/07/2018 CREEX 1.50 (A) 06/07/2018 HEMATOLOGY Lab Results Component Value Date WBC 8.9 08/26/2018 WBCEX 10.2 04/22/2018 HGB 12.8 (L) 08/26/2018 HGBEX 14.0 04/22/2018 HCT 40.7 08/26/2018 HCTEX 43.0 04/22/2018 PLT 180 08/26/2018 PLTEX 171 04/22/2018 Lab Results Component Value Date BNP 366 (H) 06/10/2018 I reviewed records from [facility] for emergency department visit o n 08/26/2018 which is summarized in the HPI. RESULTS- I reviewed reports from [facility]: Ct Head Wo Contrast Result Date: 08/26/2018 EXAM: CT HEAD WO CONTRAST dated 08/26/2018 1:33 PM HISTORY: weakness Comparison: None. [place] HNIQUE: Noncontrast CT is performed from the top of calvarium through the skull base. Coron al and sagittal reformats are performed. DOSE: DLP 613.27 mGy-cm FINDINGS: BRAIN: There is mild cerebral atrophy. There is appropriate associated prominence of the ventricles. No ar eas of increased attenuation to suggest intracranial hemorrhage. There is no mass, mass eff ect, or midline shift. There are no abnormal extra-axial fluid or air collections. There is preservation of the york-white differentiation at this time. There are mild scattered linda ons of periventricular and subcortical white matter low density. Encephalomalacia in the pos terior right cerebral hemisphere involving the parietal lobe. SCALP/ CALVARIUM: The scalp an d skull are intact and are unremarkable. SINUSES / ORBITS/ MASTOIDS: The visible mastoid air cells and paranasal sinuses are clear. The globes and retroconal contents are intact and a re unremarkable. IMPRESSION - No CT evidence for an acute intracranial process. Encephalomal acia in the right parietal lobe is likely from a remote ischemic event. The Mild white efren er disease which likely represents chronic microvascular ischemic change. Dictated and Edna d by: Terry Swift MD Electronically signed: 08/26/2018 2:20 PM Xr Chest Ap Portable Result Date: 08/26/2018 XR CHEST AP PORTABLE 08/26/2018 1:27 PM HISTORY: HYPOTENSION. COMPARISON: 10/07/2017 Finding s: Interval resolved bronchovascular/interstitial thickening. Minimal left basilar scarring. Heart is normal in size. Cardiac pacer leads have been placed no evidence of pneumothorax o r pleural effusion. Aorta is normal. No acute osseous abnormality. IMPRESSION - No acute int rathoracic abnormality identified. Dictated and Signed by: Kyle Childs MD Electronically signed: 08/26/2018 1:50 PM 48-HOUR HOLTER MONITOR REPORT 08/26/2018 - The predominant rhythm is sinus rhythm with vent ricular paced via ICD with the heart rate ranging between 52 and 80 beats per minute. The average heart rate was 63 beats per minute during the 48:32 hour recording. 10 ventricular s ingles. 320 runs of sinus bradycardia with the longest run 4535 beats at a minimum rate of 5 2 beats per minute (10:04-2). The patient did not return a diary or report any symptoms. Above data and testing is reviewed this [...] shock requiring IABP, pressor (dop amine, norepinephrine). [facility] were on divert. Patient wasn' t transferred to [facility]. B. Echocardiogram 03/17/2017 shows LV ejection fraction is severely de creased, visually estimated left ventricular ejection fraction is 20 - 25%, left ventricular systolic thickening is segment allyabnormal,mildly reduced RV systolic function. Normal RV size, no significant valvular abnormalities seen, compared to the most recent exam dated , 03/15/2017, there is no significant changes C. At [facility], patient had another STEMI code 03/29, with [...] po daily, and metoprolol succinate 25mg da atiwo--which he will continue on discharge. Low-dose lisinopril and ISMN were added as well. C ardiology has arranged for him to follow up closely with a local property inspector in [place] . He wias dischargeed with a LifeVest [...] y we will transfer the patient to [facility] for consideration of urgent coronary revascularizatio n. [...] systolic function continued to deteriorate. N. Today, 09/21/2018, patient has had no further episodes of angina. He has been going to cardiac rehabilitation. He is also walking more with no symptoms other than feeling tired at times. He is in class II of the [place] [employer] functional class. 2. Ischemic Cardiomyopathy: Heart failure with reduced [...] in the se regions. C. S/P [employer] MAORI LIAISON ADVISER-D 10-16-17 Dr Darby, [facility]. Ice interrogation today shows one episode of [...] seen by advanced heart failure group. Dr. James pereyra and Dr. Barbosa resulted in the case. The recommendations were to keep patient on amiodarone for at least 6 months. He was to up titrate Entresto to maximum dose and then to start up titrating metoprolol succinate. Once the patient gets to complete general medical therapy to maximum doses then he would have a right heart catheterization to take some base line measurements. He probably will be needing to go back to [place] in the summer. F.Today, 09/21/2018, he has had no increase in fluid retention. There is no leg swelling. He is in class II of the [place] [employer] functional class. Heart failur e stage C. 3. Ventricular tachycardia: A. Electrophysiology Study 10/16/17 shows positive EP study for induc ible ventricular tachycardia. B.In remote interrogation he had 65 episodes of treated VT. He is n ot on any antiarrhythmic. He is going to be seen in [place] so we will let EP know about it so they can assist with recommendations about treatment . He may be a candidate for amiodar one. C. 48-HOUR HOLTER MONITOR REPORT 08/26/2018 - The predominant rhythm is sinus rhythm with ventricular paced via ICD with the heart rate ranging between 52 and 80 beats per minute. The average heart rate was 63 beats per minute during the 48:32 hour recording. 10 ventricul ar singles. 320 runs of sinus bradycardia with the longest run 4535 beats at a minimum rate of 52 beats per minute (10:04-2). The patient did not return a diary or report any symptoms. D. 09/21/2018 he has no recollection of any recent palpitations of fast heart rates. 4. Left atrial appendage thrombus. Not otherwise addressed today 09/21/2018. A. Noted on MARKY in the OR during ECMO decannulation. Completedhep jennie gtt bridge 03/29 to therapeutic warfarin. Not on warfarin any more, no evidence of throm bus in last echocardiogram 5. Paroxysmal atrial flutter. Not otherwise addressed today 09/21/2018. A. Episode was seen while vision was hospitalized a week ago. Viry mustafa was after his SC and at the same time patient was having ventricular tachycardia. He was initiated on amiodarone and then discontinued before discharge. The plan is to monitor thro ugh his device and see if this is a problem that needs to be addressed. Patient is not on anticoagulation he was left that way from [facility]. Patient has had several GI bleeds and he f elt at that point that he is bleeding risk are higher therefore they will be possibility of reinitiating anticoagulation if patient has more episodes of paroxysmal atrial flutter. 6. Positive screening for PAD. Not otherwise addressed today 09/21/2018. A. Vas segmental pressures legs 11/24/2017 abnormal left ankle brach ial index of 0.91 consistent with single segment disease. 7. Normocytic anemia 8. Stage III chronic kidney disease A. eGFR is 34 on 08/2018, patient accidentally has been taking doub le the dose of Entresto that he was recommended PLAN: 1. Decrease Entresto to the adequate dose of 97/103 mg twice a day 2. Check BMP in 1 month 3. check blood pressure and pulse twice daily for two weeks and return the log to our offic e starting in 2 weeks and then start titrating metoprolol increases as recommended by [facility] ed heart failure team and continue close monitoring of blood pressure. 4. He will follow up in 3 months for office visit and device interrogation, or sooner with concerns. He will have fasting labs prior to visit for lipid profile, CMP and CBC, if not done prior by another provider. Portions of this chart may have been created with [employer] voice recognition software. Occasi onal wrong-word or sound-alike substitutions may have occurred due to the inherent canseco itations of voice recognition software. Please read the chart carefully and recognize, using context, where these substitutions have occurred. in this encounter Plan of Treatment +--------+ [...] [place], | | | | | | [place] [address] | | | | | | [phone] | | | | | | | | +--------+ + + + + | 12/16/ | Office | Cardiac | Randy Figueroa, | | | 2018 | Visit | Rehabilitation | MD [address] | | | | | | [place], | | | | | | [place] [address] | | | | | | [phone] | | | | | | | | +--------+ + + + + | 12/21/ | Office | Cardiac | Randy Figueroa, | | | 2018 | Visit | Rehabilitation | MD [address] | | | | | | [place], | | | | | | [place] [address] | | | | | | [phone] | | | | | | | | +--------+ + + + + | 12/23/ | Office | Cardiac | Randy Figueroa, | | | 2018 | Visit | Rehabilitation | MD [address] | | | | | | [place], | | | | | | [place] [address] | | | | | | [phone] | | | | | | | | +--------+ + + + + | 12/28/ | Office | Cardiac | Randy Figueroa, | | | 2018 | Visit | Rehabilitation | MD [address] | | | | | | [place], | | | | | | [place] [address] | | | | | | [phone] | | | | | | | | +--------+ + + + + | 12/30/ | Office | Cardiac | Randy Figueroa, | | | 2018 | Visit | Rehabilitation | MD [address] | | | | | | [place], | | | | | | [place] [address] | | | | | | [phone] | | | | | | | | +--------+ + + + + | 01/04/ | Office | Cardiac | Randy Figueroa, | | | 2018 | Visit | Rehabilitation | MD [address] | | | | | | [place], | | | | | | [place] [address] | | | | | | [phone] | | | | | | | | +--------+ + + + + | 01/06/ | Office | Cardiac | Randy Figueroa, | | | 2018 | Visit | Rehabilitation | MD [address] | | | | | | [place], | | | | | | [place] [address] | | | | | | [phone] | | | | | | | | +--------+ + + + + | 01/11/ | Office | Cardiac | Randy Figueroa, | | | 2018 | Visit | Rehabilitation | MD [address] | | | | | | [place] [place], | | | | | | [place] [address] | | | | | | [phone] | | | | | | | | +--------+ + + + + | 03/24/ | Procedure | Cardiology | | | | 2018 | visit | | | | +--------+ + + + + | 03/24/ | Office | Cardiology | Jenny, | | | 2018 | Visit | | ADARSH Santo [address] | | | | | | [place], | | | | | | [place] [address] | | | | | | [phone] | | | | | | | | +--------+ + + + + as of this encounter Visit Diagnoses + + | Diagnosis | + + | PAD (peripheral 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) (HCC) - Primary | + + | Unspecified disorders of arteries and arterioles | + + | Benign essential hypertension | + + | Essential hypertension, benign | + + | Fatigue, unspecified type | + + | Acute anterior wall SC (HCC) | + + | Acute myocardial infarction of other anterior wall, episode of care unspecified | + + | Coronary 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 involving [place] coronary artery of [place] tribes heart without | | angina pectoris | + + | Ischemic cardiomyopathy | + + | Other specified forms of chronic ischemic heart disease | + + | Abdominal aortic aneurysm (AAA) without rupture (HCC) | + + | Mixed hyperlipidemia | + +
--- OUTSIDE RECORDS SUMMARY | ~2018-12-10 | XMS | Encounter Summary ---
Demographics + + + | Address | [address] | | | [place] [address] | + + + | Home Phone | | + + + | Preferred Language | Unknown | + + + | Marital Status | | + + + | Adventist Affiliation | Unknown | + + + [...] | [place] | | | | | [address] | | + + + + + Care Team Providers + +------+ + | Care Stucco Mason Name | Role | Phone | + [...] | Cardiac | Diagnoses | Kacie, | [facility] | | | Services | Rehabilitatio | Coronary | Janel | | | | Required | n | artery | ADARSH Jacobs | Rehabilitatio | | | | | disease | [address] | [address] | | | | | involving | [address] | [place] | | | | | nez perce | [place], [place] | [place], [place] | | | | | coronary | [address] | [address] | | | | | artery of | Phone: | Phone: | | | | | [place] heart | [phone] | [phone] | | | | | without | Fax: | Fax: | | | | | angina | [phone] | [phone] | | | | | pectoris | | | + + + + + + + Encounter Details +--------+---------+ + + + | Date | Type | Department | Care Team | Description | +--------+---------+ + + + | 11/18/ | Office | [facility] | Randy Figueroa, | Coronary artery | | 2019 | Visit | MED CTR CARDIAC | [address] | disease involving | | | | REHABILITATION [address] | [place], | [place] coronary | | | | [address] [place] | [place] [address] | artery of ne[place] | | | | [place] [address] | [phone] | heart without angina | | | | [phone] | | pectoris (Primary | | | [...] + as of this encounter Progress Notes Gael Woo - 11/18/2018 1000 PDTFormatting of this note may be different from the origin [facility] CARDIAC [facility]HABILITATION [address] [facility] [address] Cardiac Rehab Date: 11/18/2018 Patient Information Patient Name: Bob Will Date of : 1955 Age: 63 y.o. Encounter Diagnoses Code Name Primary? I25.10 Coronary 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 involving [place] coronary artery of [place] heart without angina pectoris Yes Z98.61 Post PTCA Number of Visits Approved: 34 kx Taken [...] reported in progress note. Electronically signed by: Gael Woo, 11/18/2018 12:19 Patient Name: Bob Will/: 1955/ this enco unter Plan of Treatment [...] [place], | | | | | | [place] [address] | | | | | | [phone] | | | | | | | | +--------+ + + + + | 12/16/ | Office | Cardiac | Randy Figueroa, | | | 2018 | Visit | Rehabilitation | MD [address] [place] [address] | | | | | | [place], | | | | | | [place] [address] | | | | | | [phone] | | | | | | | | +--------+ + + + + | 12/21/ | Office | Cardiac | Randy Figueroa, | | | 2018 | Visit | Rehabilitation | MD [address] | | | | | | [place], | | | | | | [place] [address] | | | | | | [phone] | | | | | | | | +--------+ + + + + | 12/23/ | Office | Cardiac | Randy Figueroa, | | | 2018 | Visit | Rehabilitation | MD [address] | | | | | | [place], | | | | | | [place] [address] | | | | | | [phone] | | | | | | | | +--------+ + + + + | 12/28/ | Office | Cardiac | Randy Figueroa, | | | 2018 | Visit | Rehabilitation | MD [address] [place] [address] | | | | | | [place], | | | | | | [place] [address] | | | | | | [phone] | | | | | | | | +--------+ + + + + | 12/30/ | Office | Cardiac | Randy Figueroa, | | | 2018 | Visit | Rehabilitation | MD [address] | | | | | | [place], | | | | | | [place] [address] | | | | | | [phone] | | | | | | | | +--------+ + + + + | 01/04/ | Office | Cardiac | Randy Figueroa, | | | 2018 | Visit | Rehabilitation | MD [address] | | | | | | [place], | | | | | | [place] [address] | | | | | | [phone] | | | | | | | | +--------+ + + + + | 01/06/ | Office | Cardiac | Randy Figueroa, | | | 2018 | Visit | Rehabilitation | MD [address]av[address] | | | | | | [place], | | | | | | [place] [address] | | | | | | [phone] | | | | | | | | +--------+ + + + + | 01/11/ | Office | Cardiac | Randy Figueroa, | | | 2018 | Visit | Rehabilitation | MD [address] | | | | | | [place], | | | | | | [place] [address] | | | | | | [phone] | | | | | | | | +--------+ + + + + | 03/24/ | Procedure | Cardiology | | | | 2018 | visit | | | | +--------+ + + + + | 03/24/ | Office | Cardiology | Jenny, | | | 2018 | Visit | | [address] | | | | | | [place], | | | | | | [place] [address] | | | | | | [phone] | | | | | | | | +--------+ + + + + as of this encounter Visit Diagnoses + + | Diagnosis | + + | Coronary 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 involving [place] coronary artery of [place] heart without | | angina pectoris - Primary | + + | Post PTCA | + + | Postsurgical percutaneous transluminal coronary angioplasty status | + +"
--- OUTSIDE RECORDS SUMMARY | ~2018-12-10 | XMS | Encounter Summary ---
Demographics + + + | Address | [address] | | | [place] [address] | + + + | Home Phone | | + + + | Preferred Language | Unknown | + + + | Marital Status | | + + + | Christian Affiliation | Unknown | + + + [...] [place] | | | | | [address] | | + + + + + Care Team Providers + +------+ + | Care Cnc Milling Machine Operator Name | Role | Phone | + +------+ + | Young Haque DO | PCP | | + +------+ + Reason for Visit + + + | Reason | Comments | + + + | Medication Related | | + + + Encounter Details +--------+ + + + + | Date | Type | Department | Care Team | Description | +--------+ + + + + | 11/29/ | Telephone | [facility] [place] | [place], | Medication Related | | 2018 | | CARDIOLOGY [address] | ADARSH [address] | | | | | [place], | [place], | | | | | [place] [address] | [place] [address] | | | | | [phone] | [phone] | | | | | | | [...] [place], | | | | | | [place] [address] | | | | | | [phone] | | | | | | | | +--------+ + + + + | 12/16/ | Office | Cardiac | Randy Figueroa, | | | 2018 | Visit | Rehabilitation | MD [address] | | | | | | [place], | | | | | | [place] [address] | | | | | | [phone] | | | | | | | | +--------+ + + + + | 12/21/ | Office | Cardiac | Randy Figueroa, | | | 2018 | Visit | Rehabilitation | MD [address] | | | | | | [place], | | | | | | [place] [address] | | | | | | [phone] | | | | | | | | +--------+ + + + + | 12/23/ | Office | Cardiac | Randy Figueroa, | | | 2018 | Visit | Rehabilitation | MD [address] [place] | | | | | | [place], | | | | | | [place] [address] | | | | | | [phone] | | | | | | | | +--------+ + + + + | 12/28/ | Office | Cardiac | Randy Figueroa, | | | 2018 | Visit | Rehabilitation | MD [address] | | | | | | [place], | | | | | | [place] [address] | | | | | | [phone] | | | | | | | | +--------+ + + + + | 12/30/ | Office | Cardiac | Randy Figueroa, | | 2018 | Visit | Rehabilitation | MD [address] [place] | | | | | | [place], | | | | | | [place] [address] | | | | | | [phone] | | | | | | | | +--------+ + + + + | 01/04/ | Office | Cardiac | Randy Figueroa, | | | 2018 | Visit | Rehabilitation | MD [address] [place] | | | | | | [place], | | | | | | [place] [address] | | | | | | [phone] | | | | | | | | +--------+ + + + + | 01/06/ | Office | Cardiac | Randy Figueroa, | | | 2018 | Visit | Rehabilitation | MD [address] [place] | | | | | | [place], | | | | | | [place] [address] | | | | | | [phone] | | | | | | | | +--------+ + + + + | 01/11/ | Office | Cardiac | Randy Figueroa, | | | 2018 | Visit | Rehabilitation | MD [address] [place] | | | | | | [place], | | | | | | [place] [address] | | | | | | [phone] | | | | | | | | +--------+ + + + + | 03/24/ | Procedure | Cardiology | | | | 2018 | visit | | | | +--------+ + + + + | 03/24/ | Office | Cardiology | Jenny, | | | 2018 | Visit | | [address]SH [address] | | | | | | [place], | | | | | | [place] [address] | | | | | | [phone] | | | | | | | | +--------+ + + + + + +--------+ + + | Name | Priori | Associated Diagnoses | Order Schedule | | | ty | | | + +--------+ + + | Basic Metabolic Panel | Routin | Coronary artery | 1 Occurrences | | | e | disease involving | starting 11/30/2018 | | | | [place] coronary | until 12/01/2019 | | | | artery of [place] | | | | | heart without angina | | | | | pectoris | | + +--------+ + + as of this encounter Visit Diagnoses + + | Diagnosis | + + | Coronary 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 involving [place] coronary artery of [place] heart without | | angina pectoris - Primary | + +"
--- OUTSIDE RECORDS SUMMARY | ~2018-12-10 | XMS | Encounter Summary ---
Demographics + + + | Address | [address] | | | [place] [address] | + + + | Home Phone | | + + + | Preferred Language | Unknown | + + + | Marital Status | | + + + | Scientologist Affiliation | Unknown | + + + | Race | Unknown | + + + | Ethnic Group | Unknown | + + + Author + + + | Author | [facility] | | | and [place] | + + + | Organization | [facility] | | | and [place] | + + + | Address | Unknown | + + + | Phone | Unavailable | + + + Support + + + + + | Name | Relationship | Address | Phone | + + + + + | Venice Will | ECON | [place] | | | | | [address] | | + + + + + Care Team Providers + +------+ + | Care Tier And Detonator Name | Role | Phone | + [...] | | | | | | [place] [address] | | | | | | [phone] | | | +--------+ + + + [...] | | | | | | [place] [address] | | | | | | [phone] | | | | | | | | +--------+ + + + + | 12/16/ | Office | Cardiac | Randy Figueroa, | | | 2018 | Visit | Rehabilitation | MD [address] | | | | | | [place], | | | | | | [place] [address] | | | | | | [phone] | | | | | | | | +--------+ + + + + | 12/21/ | Office | Cardiac | Randy Figueroa, | | | 2018 | Visit | Rehabilitation | MD [address] | | | | | | [place], | | | | | | [place] [address] | | | | | | [phone] | | | | | | | | +--------+ + + + + | 12/23/ | Office | Cardiac | Randy Figueroa, | | 2018 | Visit | Rehabilitation | MD [address] | | | | | | [place], | | | | | | [place] [address] | | | | | | [phone] | | | | | | | | +--------+ + + + + | 12/28/ | Office | Cardiac | Randy Figueroa, | | | 2018 | Visit | Rehabilitation | MD [address] | | | | | | [place], | | | | | | [place] [address] | | | | | | [phone] | | | | | | | | +--------+ + + + + | 12/30/ | Office | Cardiac | Randy Figueroa, | | | 2018 | Visit | Rehabilitation | MD [address] | | | | | | [place], | | | | | | [place] [address] | | | | | | [phone] | | | | | | | | +--------+ + + + + | 01/04/ | Office | Cardiac | Randy Figueroa, | | | 2018 | Visit | Rehabilitation | MD [address] | | | | | | [place], | | | | | | [place] [address] | | | | | | [phone] | | | | | | | | +--------+ + + + + | 01/06/ | Office | Cardiac | Randy Figueroa, | | | 2018 | Visit | Rehabilitation | MD [address] | | | | | | [place], | | | | | | [place] [address] | | | | | | [phone] | | | | | | | | +--------+ + + + + | 01/11/ | Office | Cardiac | Randy Figueroa, | | | 2018 | Visit | Rehabilitation | [address] | | | | | | [place], | | | | | | [place] [address] | | | | | | [phone] | | | | | | | [...] | | | | | | [place] [address] | | | | | | [phone] | | | | | | | | +--------+ + + + + as of this encounter Visit Diagnoses Not on filein this encounter"
--- OUTSIDE RECORDS SUMMARY | ~2018-12-10 | XMS | Clinical Summary ---
Demographics + + + | Address | [address] [place] [address] [address] | | | [place] [address] | + + + | Home Phone | | + + + | Preferred Language | Unknown | + + + | Marital Status | | + + + | Anglican Affiliation | Unknown | + + + | Race | Unknown | + + + | Ethnic Group | Unknown | + + + Author + + + | Author | [email or web address] [email or web address] | + + + | Organization | [facility] | + + + | Address | Unknown | + + + | Phone | Unavailable | + + + Support + + +---------+ + | Name | Relationship | Address | Phone | + + +---------+ + | [place] Mckeon | ECON | Unknown | | + + +---------+ + Care Team Providers + +------+ + | Care Deicer Repairer Name | Role | Phone | + [...] + + | Father | | | [place] | | | | (Age | | [...] MCKEON Date of : 1955 | [facility] | | Performing Physician: Rocio | RADIOLOGY | | [facility] | | | | [...] MV A Rohan: 0.86 m/s MV Dec [place]: 3.26 m/s2 | | | MV DecT: [...] | 21.47 mmHg TR Vmax: 2.31 m/s Vice President Integrated: DBS Authenticated | | | by: Rocio [place] Report Date/Time: 11-04-2018 19:16:25 | | + + + + + | Procedure Note | + + | Sebastian, Rad Results In - 11/04/2018 7:20 PM PST Patient Name: Belkys MCKEON of | | : 5Accession: [id number] Physician: Rocio | | Alsamara INDICATIONS------ | [...] | 5.92 cmLVPWd: 1.01 cmLVOT Area: 3.17 hr4ATOT Diam: 2.01 cm%FS: 15.56 %EF(Teich): | | [...] mlLAESV Index (A-L): 42.88 ml/m2LAAs A2C: 24.92 hr4SBOIS A-L | | A2C: 95.08 mlLALs A2C: 5.54 cmLAAs A4C: 19.37 [id number] A-L A4C: 70.66 mlLALs | | A4C: 4.50 cmRAAs: 18.79 [id number] A-L: 67.38 mlRAESV MOD: 63.17 mlRALs: 4.44 | | cmTAPSE: 2.12 cmAV maxP.82 mmHgAV meanP.56 mmHgAV Vmax: 1.30 m/Emil | | Vmean: 0.88 m/Emil VTI: 25.33 cmAVA Vmax: 2.55 cm2AVA (VTI): 2.49 wu0YEQC (Vmax): | | 0.00 cm2/m2AVAI (VTI): 0.00 cm2/m2LVOT maxP.40 mmHgLVOT meanP.91 | | mmHgLVSI Dopp: 29.85 ml/m2LVSV Dopp: 63.29 mlLVOT Vmax: 1.04 m/sLVOT Vmean: 0.64 | | m/sLVOT VTI: 19.92 cmMV A Rohan: 0.86 m/sMV Dec [place]: 3.26 m/s2MV DecT: 218.32 | | msMV E Rohan: 0.71 m/sMV E/A Ratio: 0.82 MV PHT: 63.31 msMVA By PHT: 3.47 | | vd9Kknelq e': 0.04 m/sSeptal E/e': 15.51 Lateral e': 0.06 m/sLateral E/e': 10.91 | | RAP: 5 mmHgRVSP: 26.47 mmHgTR maxP.47 mmHgTR Vmax: 2.31 m/sSonographer: | | DBSAuthenticated by: Elinagwendolyn [facility] CenterReport Date/Time: 11-04-2018 19:16:25IMPRESSION:1. | | [...] A Rohan: 0.86 m/s | |MV Dec [place]: 3.26 m/s2 | |MV DecT: 218.32 ms [...] |TR Vmax: 2.31 m/s | | | |Vice President Integrated: DBS | |Authenticated by: Rocio Pearl | [...] | [address] | [place] [address] | | + + + + + [...] +------+-------+ + | MEDICAID | [place] | [id number] | | | [address] | | | N | | | | [place] | | | [place] | | | | [address] | | | DIRECTOR OF PROVIDER RELATIONS | | | | | + +--------+ [...] | Self | [birth year] | Home: | [facility] [address] | | | al/Fam | | 1956 | [phone] | [address] [place], | | | [place] | | | [address] | [place] [address] | + +--------+ +--------+ + +
--- OUTSIDE RECORDS SUMMARY | ~2018-12-10 | XMS | Encounter Summary ---
Demographics + + + | Address | [address] | | | [place] [address] | + + + | Home Phone | | + + + | Preferred Language | Unknown | + + + | Marital Status | | + + + | Adventism Affiliation | Unknown | + + + [...] | [place] | | | | | [address] | | + + + + + Care Team Providers + +------+ + | Care Staff Counselor Name | Role | Phone | [...] | | | involving | [address] [place] | | | | | [place] | [place] | [place] | | | | | coronary | [address] | [address] | | | | | artery of | Phone: | Phone: | | | | | [place] heart | [phone] | [phone] | | | | | without | Fax: | Fax: | | | | | angina | [phone] | [phone] | | | | | pectoris | | | + + + + + + + Encounter Details +--------+---------+ + + + | Date | Type | Department | Care Team | Description | +--------+---------+ + + + | 11/09/ | Office | [facility] | Randy Figueroa, | Coronary artery | | 2019 | Visit | MED CTR CARDIAC | MD [address] | disease involving | | | | REHABILITATION [address], | [place] coronary | | | | [address] [place] | [place] [address] | artery of [place] | | | | [place] [address] | [phone] | heart without angina | | | | [phone] | | pectoris (Primary | | | [...] encounter Progress Notes Cheri Harvey RRT - 11/09/2018 1000 PSTFormatting of this note may be differ ent from the original. [facility] RE[facility]ATION [address] [place] [address] Cardiac Rehab Date: 11/09/2018 Patient Information Patient Name: Bob Will Date of : 1955 Age: 63 y.o. Encounter Diagnoses Code Name Primary? I25.10 Coronary 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 involving [place] coronary artery of [place] heart without angina pectoris Yes Number of [...] 11/09/2018 11:49 Patient Name: Bob Will/: 1955/ this enco unter Plan of Treatment +--------+ + + + + | Date | Type | Specialty | Care Team | Description | +--------+ + + + + | 12/14/ | Office | Cardiac | Randy Figueroa, | | | 2018 | Visit | Rehabilitation | MD Javid Crespo | | | | | | [place], | | | | | | [place] [address] | | | | | | [phone] | | | | | | | | +--------+ + + + + | 12/16/ | Office | Cardiac | Randy Figueroa, | | | 2018 | Visit | Rehabilitation | MD [address] | | | | | | [place], | | | | | | [place] [address] | | | | | | [phone] | | | | | | | | +--------+ + + + + | 12/21/ | Office | Cardiac | Randy Figueroa, | | | 2018 | Visit | Rehabilitation | MD [address] | | | | | | [place], | | | | | | [place] [address] | | | | | | [phone] | | | | | | | | +--------+ + + + + | 12/23/ | Office | Cardiac | Randy Figueroa, | | | 2018 | Visit | Rehabilitation | MD [address] | | | | | | [place], | | | | | | [place] [address] | | | | | | [phone] | | | | | | | | +--------+ + + + + | 12/28/ | Office | Cardiac | Randy Figueroa, | | | 2018 | Visit | Rehabilitation | MD [address] | | | | | | [place], | | | | | | [place] [address] | | | | | | [phone] | | | | | | | | +--------+ + + + + | 12/30/ | Office | Cardiac | Randy Figueroa, | | | 2018 | Visit | Rehabilitation | MD [address] | | | | | | [place], | | | | | | [place] [address] | | | | | | [phone] | | | | | | | | +--------+ + + + + | 01/04/ | Office | Cardiac | Randy Figueroa, | | | 2018 | Visit | Rehabilitation | MD [address] | | | | | | [place], | | | | | | [place] [address] | | | | | | [phone] | | | | | | | | +--------+ + + + + | 01/06/ | Office | Cardiac | Randy Figueroa, | | | 2018 | Visit | Rehabilitation | MD [address] | | | | | | [place], | | | | | | [place] [address] | | | | | | [phone] | | | | | | | | +--------+ + + + + | 01/11/ | Office | Cardiac | Randy Figueroa, | | | 2018 | Visit | Rehabilitation | MD [address] | | | | | | [place], | | | | | | [place] [address] | | | | | | [phone] | | | | | | | [...] | | | | | | [place] [address] | | | | | | [phone] | | | | | | | | +--------+ + + + + as of this encounter Visit Diagnoses + + | Diagnosis | + + | Coronary 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 involving [place] coronary artery of [place] heart without | | angina pectoris - Primary | + +"
--- OUTSIDE RECORDS SUMMARY | ~2018-12-10 | XMS | Clinical Summary ---
Demographics + + + | Address | [address] [place] [address] [address] | | | [place] [address] | + + + | Home Phone | | + + + | Preferred Language | Unknown | + + + | Marital Status | | + + + | Latter-Day Affiliation | Unknown | + + + | Race | Unknown | + + + | Ethnic Group | Unknown | + + + Author + + + | Author | [facility] [employer] | + + + | Organization | [facility] | + + + | Address | Unknown | + + + | Phone | Unavailable | + + + Support + + +---------+ + | Name | Relationship | Address | Phone | + + +---------+ + | Venice Mckeon | ECON | Unknown | | + + +---------+ + Care Team Providers + +------+ + | Care Cnc Set Up Operator Name | Role | [...] + + | Father | | | [place] | | | | (Age | | [...] RON MCKEON Date of : 1955 | [facility] | | Performing Physician: Rocio | RADIOLOGY | | [facility] | | | | | [...] MV A Rohan: 0.86 m/s MV Dec [place]: 3.26 m/s2 | | | MV DecT: [...] | 21.47 mmHg TR Vmax: 2.31 m/s Errand Runner: DBS Authenticated | | | by: Rocio [place] Report Date/Time: 11-04-2018 19:16:25 | | + + + + + | Procedure Note | + + | Sebastian, Rad Results In - 11/04/2018 7:20 PM PST Patient Name: Belkys MCKEON of | | : 5Accession: [id number] Physician: Rocio | | Alsamara INDICATIONS------ | [...] | 5.92 cmLVPWd: 1.01 cmLVOT Area: 3.17 [id number] Diam: 2.01 cm%FS: 15.56 %EF(Teich): | | [...] mlLAESV Index (A-L): 42.88 ml/m2LAAs A2C: 24.92 [id number] A-L | | A2C: 95.08 mlLALs A2C: 5.54 cmLAAs A4C: 19.37 xh8SQAGW A-L A4C: 70.66 mlLALs | | A4C: 4.50 cmRAAs: 18.79 [id number] A-L: 67.38 mlRAESV MOD: 63.17 mlRALs: 4.44 | | cmTAPSE: 2.12 cmAV maxP.82 mmHgAV meanP.56 mmHgAV Vmax: 1.30 m/Emil | | Vmean: 0.88 m/Emil VTI: 25.33 cmAVA Vmax: 2.55 cm2AVA (VTI): 2.49 uy8LYAM (Vmax): | | 0.00 cm2/m2AVAI (VTI): 0.00 cm2/m2LVOT maxP.40 mmHgLVOT meanP.91 | | mmHgLVSI Dopp: 29.85 ml/m2LVSV Dopp: 63.29 mlLVOT Vmax: 1.04 m/sLVOT Vmean: 0.64 | | m/sLVOT VTI: 19.92 cmMV A Rohan: 0.86 m/sMV Dec [place]: 3.26 m/s2MV DecT: 218.32 | | msMV E Rohan: 0.71 m/sMV E/A Ratio: 0.82 MV PHT: 63.31 msMVA By PHT: 3.47 | | fw2Uzwjop e': 0.04 m/sSeptal E/e': 15.51 Lateral e': 0.06 m/sLateral E/e': 10.91 | | RAP: 5 mmHgRVSP: 26.47 mmHgTR maxP.47 mmHgTR Vmax: 2.31 m/sSonographer: | | DBSAuthenticated by: Elinagwendolyn [facility] CenterReport Date/Time: 11-04-2018 19:16:25IMPRESSION:1. | | This [...] A Rohan: 0.86 m/s | |MV Dec [place]: 3.26 m/s2 | |MV DecT: 218.32 ms [...] |TR Vmax: 2.31 m/s | | | |Errand Runner: DBS | |Authenticated by: Rocio Pearl | [...] | [address] | [place] [address] | | + + + + + [...] +------+-------+ + | MEDICAID | [place] | [id number] | | | [address] | | | N | | | | [place] | | | [place] | | | | [address] | | | TATT[employer] AND BODY ARTIST | | | | | + +--------+ [...] | Self | [birth year] | Home: | [facility] [address] | | | al/Fam | | 1956 | [phone] | [address] [place], | | | [place] | | | [address] | [place] [address] | + +--------+ +--------+ + +
--- OUTSIDE RECORDS SUMMARY | ~2018-12-10 | XMS | Clinical Summary ---
Demographics + + + | Address | [address] [place] [address] [address] | | | [place] [address] | + + + | Home Phone | | + + + | Preferred Language | Unknown | + + + | Marital Status | | + + + | Jainism Affiliation | NRP | + + + [...] | | | | | [place] [address] | | + + + + + Care Team Providers + +------+ + | Care Rn Case Management Name | Role | Phone | + +------+ + | Chato Matson MD | PP | | + +------+ + Source Comments EULOGIO is fully live on both [facility] Ambulatory and [facility] InPatient.[facility] Allergies No Known Allergies Current [...] | | 18 | | | | acute pain following | Postoperative Acute | | | | | | | an operation | Pain | | | | | [...] | 18 | | | | ations: treatment to | myocardial | | | | | | | prevent a heart | infarction | | | | | | | attack | prevention | | | | | | + + +---------+---------+------+------+-------+ | clopidogrel 75 mg | Take 1 tablet by | 30 | 11 | / | | Activ | | oral | mouth once daily. | tablet | | 09/26 | | e | | tabletIndications: | Indications: | | | 18 | | | | treatment to prevent | myocardial | | | | | | | a heart attack | infarction | | | | | | | | prevention | | | | | | + + +---------+---------+------+------+-------+ | metoprolol | Take 1 tablet by | 30 | 0 | 10/08 | | Activ | | succinate 25 mg oral | mouth once daily. | tablet | | 020 | | e | | tablet extended [...] tablet under | 25 | 2 | 02/ | | Activ | | mg sublingual [...] | | 18 | | | | treatment to prevent | myocardial | | | | | | | a heart attack | infarction | | | | | [...] resynchronization therapy | 10/17/2017 | | defibrillator (CAR CARDER-D) | | + + + | Influenza, [...] edema. 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 | | -secretions improving, cough [...] stayExtubated 03/22, started on | | [place] V1Fljbg infusion begun 03/22 for daily goal -1 [...] during cath [facility]. Was shocked [facility] times | | [...] + | Last Assessment & Plan: Gissel 2u 03/17-03/18 with improved | | HR [...] + + + + + | Pneumococcal (Adult) | | | | | (1 of 1 - PPSV23) | 4 | | | + + + + + | Influenza (Flu) | | | | | vaccination (#1) | 8 | | | + [...] Chest | INC | | 2019 | Q | | Michael Soni MD [...] | | 2018 | /[id number] | | Michael Darby MD | | | | | | [id number] | | | | | | | | / | + +------+--------+ +--------+--------+--------+ | Ra-Lead-10/16/2017Implanted: | LEAD | Left: | [employer] | | 07/14/ | [id number] | | Qty: 1 on 10/16/2017 by | | Chest | INC | | 2018 | 2CM | | Michael Darby MD [...] Chest | INC | | 2019 | /[id number] | | Michael Darby MD | | | | | | [id number] | | | | | | | | / | + +------+--------+ +--------+--------+--------+ | Stent-10/15/2017Implanted: Qty: | | | MEDTRON[employer] | | | [id number] | | 1 on 10/15/2017 by Ly, | | | INC | | | [id number] | | Tejal Pettit MD | | | | | | X / | | | | | | | | /[id number] | | | | | | | | [address] | + +------+--------+ +--------+--------+--------+ Results Not on filefrom Last 3 Months Insurance + +--------+ +--------+ + + | Payer | Benefi | Subscriber | Type | Phone | Address | | | t Plan | ID | | | | | | / | | | | | | | Group | | | | | + +--------+ +--------+ + + | [place] | BLUE | [phone] | PPO | [phone] | [address] [address] [place] | | | CROSS | | | [address] | [place] [address] | | | [place] | | | | | | | L | | | | | + +--------+ +--------+ + + | [place] | OHP | xxxxxxxx | Medica | [phone] | [address] [address] | | | PLUS | | id | [phone] | [place] [address] | | | OPEN | | | | | | | CARD | | | | | + +--------+ +--------+ + + + +--------+ +--------+ + + | Guarantor Name | Accoun | Relation to | Date | Phone | Billing Address | | | t Type | Patient | of | | | | | | | | | | + +--------+ +--------+ + + | RON MCKEON | Person | Self [birth year] | Home: | [address] | | | al/Fam | | 1956 | [phone] | [address] [place] | | | taiwo | | | [phone] | [phone] | + +--------+ +--------+ + +
--- OUTSIDE RECORDS SUMMARY | ~2018-12-10 | XMS | Encounter Summary ---
Demographics + + + | Address | [address] | | | [place] [address] | + + + | Home Phone | | + + + | Preferred Language | Unknown | + + + | Marital Status | | + + + | Uatsdin Affiliation | Unknown | + + + | Race | Unknown | + + + | Ethnic Group | Unknown | + + + Author + + + | Author | [facility] | | | and [place] | + + + | Organization | [facility] | | | and [place] | + + + | Address | Unknown | + + + | Phone | Unavailable | + + + Support + + + + + | Name | Relationship | Address | Phone | + + + + + | Venice Will | ECON | [place] | | | | | [address] | | + + + + + Care Team Providers + +------+ + | Care Live Truck Operator Name | Role | Phone | [...] | | | involving | [address] | | | | | barrow | [place] | [place] | | | | | coronary | [address] | [address] | | | | | artery of | Phone: | Phone: | | | | | barrow heart | [phone] | [phone] | | | | | without | Fax: | Fax: | | | | | angina | [phone] | [phone] | | | | | pectoris | | | + + + + + + + Encounter Details +--------+---------+ + + + | Date | Type | Department | Care Team | Description | +--------+---------+ + + + | 09/14/ | Office | [facility] | Randy Figueroa, | Coronary artery | | 2019 | Visit | MED CTR CARDIAC | MD [address] | disease, angina | | | | REHABILITATION [address], | presence | | | | [address] [place] | [place] [address] | unspecified, | | | | [place] [address] | [phone] | unspecified vessel | | | | [phone] | | or lesion type, | | | | | | unspecified whether | | | | | | barrow or | | | | | | [...] this encounter Progress Notes Gael Woo - 09/14/2018 1000 PSTFormatting of this note may be different from the origin [facility]Fletcher [facility]ATION [address] [place] [address] Cardiac Rehab Date: 09/14/2018 Patient Information Patient Name: Bob Will Date of : 1955 Age: 62 y.o. Encounter Diagnoses Code Name Primary? I25.10 Coronary 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, angina presence unspecified, unspecified vessel or lesi on type, unspecified whether barrow or transplanted heart Yes Z98.61 Post PTCA Number of Visits Approved: 34 Taken Medications Today? Yes Any Changes in Medications? No yes, metoprolol decreased 100 mg. Any Problems to Report? No Denies any adverse symptoms during exercise. Ventricular paced rhythm without ectopy. Pre O2: 97%, Ex O2: 95%. SBP with no change during exertion. Compliant with medications and therapeutic lifestyle changes. Continue monitored exercise. Any abnormal vital signs or rhythm strips will be reported in progress note. Electronically signed by: Gael Woo, 09/14/2018 15:18 Patient Name: Bob Will/: 1955/ this enco unter Plan of Treatment +--------+ + + + + | Date | Type | Specialty | Care Team | Description | +--------+ + + + + | 12/14/ | Office | Cardiac | Randy Figueroa, | | | 2019 | Visit | Rehabilitation | MD [address] | | | | | | [place], | | | | | | [place] [address] | | | | | | [phone] | | | | | | | | +--------+ + + + + | 12/16/ | Office | Cardiac | Randy Figueroa, | | | 2018 | Visit | Rehabilitation | MD [address] | | | | | | [place], | | | | | | [place] [address] | | | | | | [phone] | | | | | | | | +--------+ + + + + | 12/21/ | Office | Cardiac | Randy Figueroa, | | | 2018 | Visit | Rehabilitation | MD [address] | | | | | | [place], | | | | | | [place] [address] | | | | | | [phone] | | | | | | | | +--------+ + + + + | 12/23/ | Office | Cardiac | Randy Figueroa, | | | 2018 | Visit | Rehabilitation | MD [address] | | | | | | [place], | | | | | | [place] [address] | | | | | | [phone] | | | | | | | | +--------+ + + + + | 12/28/ | Office | Cardiac | Randy Figueroa, | | | 2018 | Visit | Rehabilitation | MD [address] | | | | | | [place], | | | | | | [place] [address] | | | | | | [phone] | | | | | | | | +--------+ + + + + | 12/30/ | Office | Cardiac | Randy Figueroa, | | | 2018 | Visit | Rehabilitation | MD [address] | | | | | | [place], | | | | | | [place] [address] | | | | | | [phone] | | | | | | | | +--------+ + + + + | 01/04/ | Office | Cardiac | Randy Figueroa, | | | 2018 | Visit | Rehabilitation | MD [address] | | | | | | [place], | | | | | | [place] [address] | | | | | | [phone] | | | | | | | | +--------+ + + + + | 01/06/ | Office | Cardiac | Randy Figueroa, | | | 2018 | Visit | Rehabilitation | [address] | | | | | | [place], | | | | | | [place] [address] | | | | | | [phone] | | | | | | | | +--------+ + + + + | 01/11/ | Office | Cardiac | Randy Figueroa, | | | 2018 | Visit | Rehabilitation | MD [address] | | | | | | [place], | | | | | | [place] [address] | | | | | | [phone] | | | | | | | | +--------+ + + + + | 03/24/ | Procedure | Cardiology | | | | 2018 | visit | | | | +--------+ + + + + | 03/24/ | Office | Cardiology | Jenny, | | | 2018 | Visit | | ADARSH Santo [address] | | | | | | [place], | | | | | | [place] [address] | | | | | | [phone] | | | | | | | | +--------+ + + + + as of this encounter Visit Diagnoses + + | Diagnosis | + + | Coronary 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, angina presence unspecified, unspecified vessel or lesion | | type, unspecified whether barrow or transplanted heart - Primary | + + | Post PTCA | + + | Postsurgical percutaneous transluminal coronary angioplasty status | + +"
--- OUTSIDE RECORDS SUMMARY | ~2018-12-10 | XMS | Clinical Summary ---
Demographics + + + | Address | [address] [place] [address] [address] | | | [place] [address] | + + + | Home Phone | | + + + | Preferred Language | Unknown | + + + | Marital Status | | + + + | Worship Affiliation | NRP | + + + [...] | | | | | [place] [address] | | + + + + + Care Team Providers + +------+ + | Care Dairy Equipment Mechanic Name | Role | Phone | + +------+ + | Chato Matson MD | PP | | + +------+ + Source Comments EULOGIO is fully live on both [facility] Ambulatory and [facility] InPatient.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 | | -secretions improving, cough strong -s/p [...] stayExtubated 03/22, started on | | NC U9Wxiwg infusion begun 03/22 for daily goal -1 [...] during cath | | lab procedure [facility]. Was shocked 17 times | | [...] | | | INC | | | [id number] | | Tejal Pettit MD | | | | | | X / | | | | | | | | /[address] | | | | | | | | [address] | + +------+--------+ +--------+--------+--------+ Results Not on [...] | PPO | [phone]- | [address] [address] [place] | | | CROSS | | | [address] | [place] [address] | | | [place] | | | | | | | L | | | | | + +--------+ +--------+ + + | MEDICAID [place] | OHP | xxxxxxxx | Medica | [phone] | [address] [address] | | | PLUS | | id | [phone] | [place] [address] | | | OPEN | | | [...] | Self | [birth year] | Home: | [address] | | | al/Fam | | 1956 | [phone] | [address] [place] | | | taiwo | | | [phone] | [phone] | + +--------+ +--------+ + +
--- OUTSIDE RECORDS SUMMARY | ~2018-12-10 | XMS | Encounter Summary ---
Demographics + + + | Address | [address] | | | [place] [address] | + + + | Home Phone | | + + + | Preferred Language | Unknown | + + + | Marital Status | | + + + | Protestant Affiliation | Unknown | + + + | Race | Unknown | + + + | Ethnic Group | Unknown | + + + Author + + + | Author | [facility] | | | and [place] | + + + | Organization | [facility] | | | and [place] | + + + | Address | Unknown | + + + | Phone | Unavailable | + + + Support + + + + + | Name | Relationship | Address | Phone | + + + + + | [place] Will | ECON | [place] | | | | | [address] | | + + + + + Care Team Providers + +------+ + | Care Co Op Name | Role | Phone | + [...] | Cardiac | Diagnoses | Kacie, | [facility] | | | Services | Rehabilitatio | Coronary | Janel | | | | Required | n | artery | ADARSH Jacobs | Rehabilitatio | | | | | disease | [address] | [address] | | | | | involving | [address] | [address] [place] | | | | | [place] | [place] | [place] | | | | | coronary | [address] | [address] | | | | | artery of | Phone: | Phone: | | | | | [place] heart | [phone] | [phone] | | | | | without | Fax: | Fax: | | | | | angina | [phone] | [phone] | | | | | pectoris | | | + + + + + + + Encounter Details +--------+---------+ + + + | Date | Type | Department | Care Team | Description | +--------+---------+ + + + | 12/09/ | Office | [facility] | Randy Figueroa, | Coronary artery | | 2019 | Visit | MED CTR CARDIAC | MD [address] | disease involving | | | | REHABILITATION [address], | [place] coronary | | | | [address] [place] | [place] [address] | artery of [place] | | | | [place] [address] | [phone] | heart without angina | | | | [phone] | | pectoris (Primary | | | [...] | | | | | | [place] [address] | | | | | | [phone] | | | | | | | | +--------+ + + + + | 12/16/ | Office | Cardiac | Randy Figueroa, | | | 2018 | Visit | Rehabilitation | MD [address]av[address] | | | | | | [place], | | | | | | [place] [address] | | | | | | [phone] | | | | | | | | +--------+ + + + + | 12/21/ | Office | Cardiac | Randy Figueroa, | | | 2018 | Visit | Rehabilitation | MD [address] | | | | | | [place], | | | | | | [place] [address] | | | | | | [phone] | | | | | | | | +--------+ + + + + | 12/23/ | Office | Cardiac | Randy Figueroa, | | | 2018 | Visit | Rehabilitation | MD [address] | | | | | | [place], | | | | | | [place] [address] | | | | | | [phone] | | | | | | | | +--------+ + + + + | 12/28/ | Office | Cardiac | Randy Figueroa, | | | 2018 | Visit | Rehabilitation | MD [address] | | | | | | [place], | | | | | | [place] [address] | | | | | | [phone] | | | | | | | | +--------+ + + + + | 12/30/ | Office | Cardiac | Randy Figueroa, | | | 2018 | Visit | Rehabilitation | MD [address] | | | | | | [place], | | | | | | [place] [address] | | | | | | [phone] | | | | | | | | +--------+ + + + + | 01/04/ | Office | Cardiac | Randy Figueroa, | | | 2018 | Visit | Rehabilitation | MD [address] | | | | | | [place], | | | | | | [place] [address] | | | | | | [phone] | | | | | | | | +--------+ + + + + | 01/06/ | Office | Cardiac | Randy Figueroa, | | | 2018 | Visit | Rehabilitation | MD [address] | | | | | | [place], | | | | | | [place] [address] | | | | | | [phone] | | | | | | | | +--------+ + + + + | 01/11/ | Office | Cardiac | Randy Figueroa, | | | 2018 | Visit | Rehabilitation | MD [address] | | | | | | [place], | | | | | | [place] [address] | | | | | | [phone] | | | | | | | | +--------+ + + + + | 03/24/ | Procedure | Cardiology | | | | 2018 | visit | | | | +--------+ + + + + | 03/24/ | Office | Cardiology | Jenny, | | | 2018 | Visit | | ADARSH Santo [address] | | | | | | [place], | | | | | | [place] [address] | | | | | | [phone] | | | | | | | | +--------+ + + + + as of this encounter Visit Diagnoses + + | Diagnosis | + + | Coronary 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 involving [place] coronary artery of [place] heart without | | angina pectoris - Primary | + + | Post PTCA | + + | Postsurgical percutaneous transluminal coronary angioplasty status | + +"
--- OUTSIDE RECORDS SUMMARY | ~2018-12-10 | XMS | Encounter Summary ---
Demographics + + + | Address | [address] | | | [place] [address] | + + + | Home Phone [...] | [place] | | | | | [address] | | + + + + + Care Team Providers + +------+ + | Care Event Set Up Specialist Name | Role | Phone | [...] | | | involving | [address] [place] | | | | | [place] | [place] | [place] | | | | | coronary | [address] | [address] | | | | | artery of | Phone: | Phone: | | | | | [place] heart | [phone] | [phone] | | | | | without | Fax: | Fax: | | | | | angina | [phone] | [phone] | | | | | pectoris | | | + + + + + + + Encounter Details +--------+---------+ + + + | Date | Type | Department | Care Team | Description | +--------+---------+ + + + | 11/25/ | Office | [facility] | Carolina Randy, | Coronary artery | | 2019 | Visit | MED CTR CARDIAC | MD [address] | disease involving | | | | REHABILITATION [address], | [place] coronary | | | | [address] [place] | [place] [address] | artery of [place] | | | | [place] [address] | [phone] | heart without angina | | | | [phone] | | pectoris (Primary | | | [...] as of this encounter Progress Notes Cheri aHrvey RRT - 11/25/2018 1000 PDTFormatting of this note may be differ ent from the original. [facility] CTR CARDIAC REHABILITATION [address] [place] [address] Cardiac Rehab Date: 11/25/2018 Patient Information Patient [...] Visit | Rehabilitation | MD [address] | | | | | | [place], | | | | | | [place] [address] | | | | | | [phone] | | | | | | | | +--------+ + + + + | 12/16/ | Office | Cardiac | Randy Figueroa, | | | 2018 | Visit | Rehabilitation | MD [address] | | | | | | [place], | | | | | | [place] [address] | | | | | | [phone] | | | | | | | | +--------+ + + + + | 12/21/ | Office | Cardiac | Randy Figueroa, | | | 2018 | Visit | Rehabilitation | MD [address] | | | | | | [place], | | | | | | [place] [address] | | | | | | [phone] | | | | | | | | +--------+ + + + + | 12/23/ | Office | Cardiac | Randy Figueroa, | | | 2018 | Visit | Rehabilitation | MD [address] | | | | | | [place], | | | | | | [place] [address] | | | | | | [phone] | | | | | | | | +--------+ + + + + | 12/28/ | Office | Cardiac | Randy Figueroa, | | | 2018 | Visit | Rehabilitation | MD [address] | | | | | | [place], | | | | | | [place] [address] | | | | | | [phone] | | | | | | | | +--------+ + + + + | 12/30/ | Office | Cardiac | Randy Figueroa, | | | 2018 | Visit | Rehabilitation | MD [address] | | | | | | [place], | | | | | | [place] [address] | | | | | | [phone] | | | | | | | | +--------+ + + + + | 01/04/ | Office | Cardiac | Randy Figueroa, | | | 2018 | Visit | Rehabilitation | MD [address] | | | | | | [place], | | | | | | [place] [address] | | | | | | [phone] | | | | | | | | +--------+ + + + + | 01/06/ | Office | Cardiac | Randy Figueroa, | | | 2018 | Visit | Rehabilitation | MD [address] | | | | | | [place], | | | | | | [place] [address] | | | | | | [phone] | | | | | | | | +--------+ + + + + | 01/11/ | Office | Cardiac | Randy Figueroa, | | | 2018 | Visit | Rehabilitation | MD [address] | | | | | | [place], | | | | | | [place] [address] | | | | | | [phone] | | | | | | | | +--------+ + + + + | 03/24/ | Procedure | Cardiology | | | | 2018 | visit | | | | +--------+ + + + + | 03/24/ | Office | Cardiology | Delight, | | | 2019 | Visit | | ADARSH Santo [address] | | | | | | [place], | | | | | | [place] [address] | | | | | | [phone] | | | | | | | | +--------+ + + + + as of this encounter Visit Diagnoses + + | Diagnosis | + + | Coronary 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 involving [place] coronary artery of [place] heart without | | angina pectoris - Primary | + + | Post PTCA | + + | Postsurgical percutaneous transluminal coronary angioplasty status | + +"
--- OUTSIDE RECORDS SUMMARY | ~2018-12-10 | XMS | Encounter Summary ---
Demographics + + + | Address | [address] [place] [address] [address] | | | [place] [address] | + + + | Home Phone | | + + + | Preferred Language | Unknown | + + + | Marital Status | | + + + | Lutheran Affiliation | Unknown | + + + | Race | Unknown | + + + | Ethnic Group | Unknown | + + + Author + + + | Author | Cassandra Perdoo | + + + | Organization | [facility] | + + + | Address | Unknown | + + + | Phone | Unavailable | + + + Support + + +---------+ + | Name | Relationship | Address | Phone | + + +---------+ + | [place] Mckeon | ECON | Unknown | | + + +---------+ + Care Team Providers + +------+ + | Care Natural Fabricator Name | Role | Phone | + [...] HF chronicity, | | | | | [address] | unspecified heart | | | | [...] RON MCKEON Date of : 1955 | [facility] | | Performing Physician: Rocio | RADIOLOGY | | [facility] | | | | | [...] MV A Rohan: 0.86 m/s MV Dec [place]: 3.26 m/s2 | | | MV DecT: [...] | 21.47 mmHg TR Vmax: 2.31 m/s Trapeze Artist: ANJANA Authenticated | | | by: Rocio [facility] Report Date/Time: 11-04-2018 19:16:25 | | + + + + + | Procedure Note | + + | Sebastian, Rad Results In - 11/04/2018 7:20 PM PST Patient Name: Belkys MCKEON of | | : 5Accession: [id number] Physician: Rocio | | [facility] INDICATIONS------ | | -----CHFCONCLUSIONS 1. [...] | 5.92 cmLVPWd: 1.01 cmLVOT Area: 3.17 [id number] Diam: 2.01 cm%FS: 15.56 %EF(Teich): | | [...] mlLAESV Index (A-L): 42.88 ml/m2LAAs A2C: 24.92 aa1YLLAV A-L | | A2C: 95.08 mlLALs A2C: 5.54 cmLAAs A4C: 19.37 cs2OCGUJ A-L A4C: 70.66 mlLALs | | A4C: 4.50 cmRAAs: 18.79 ol4MUUCC A-L: 67.38 mlRAESV MOD: 63.17 mlRALs: 4.44 | | cmTAPSE: 2.12 cmAV maxP.82 mmHgAV meanP.56 mmHgAV Vmax: 1.30 m/Emil | | Vmean: 0.88 m/Emil VTI: 25.33 cmAVA Vmax: 2.55 cm2AVA (VTI): 2.49 ld7QDRF (Vmax): | | 0.00 cm2/m2AVAI (VTI): 0.00 cm2/m2LVOT maxP.40 mmHgLVOT meanP.91 | | mmHgLVSI Dopp: 29.85 ml/m2LVSV Dopp: 63.29 mlLVOT Vmax: 1.04 m/sLVOT Vmean: 0.64 | | m/sLVOT VTI: 19.92 cmMV A Rohan: 0.86 m/sMV Dec [place]: 3.26 m/s2MV DecT: 218.32 | | msMV E Rohan: 0.71 m/sMV E/A Ratio: 0.82 MV PHT: 63.31 msMVA By PHT: 3.47 | | td6Pjvfqv e': 0.04 m/sSeptal E/e': 15.51 Lateral e': 0.06 m/sLateral E/e': 10.91 | | RAP: 5 mmHgRVSP: 26.47 mmHgTR maxP.47 mmHgTR Vmax: 2.31 m/sSonographer: | | DBSAuthenticated by: Mershed [facility] Date/Time: 11-04-2018 19:16:25IMPRESSION:1. | | [...] A Rohan: 0.86 m/s | |MV Dec [place]: 3.26 m/s2 | |MV DecT: 218.32 ms [...] |TR Vmax: 2.31 m/s | | | |Trapeze Artist: DBS | |Authenticated by: Rocio Pearl | [...] | + + + + + | [facility] | [address] | [place] [address] | | + + + + + in this encounter Visit Diagnoses + + | Diagnosis | + + | Congestive heart failure, unspecified HF chronicity, unspecified heart failure type | | (HCC) | + +"
--- OUTSIDE RECORDS SUMMARY | ~2018-12-10 | XMS | Encounter Summary ---
Demographics + + + | Address | [address] | | | [place] [address] | + + + | Home Phone [...] | [place] | | | | | [address] | | + + + + + Care Team Providers + +------+ + | Care Gas Appliance Servicer Helper Name | Role | Phone | [...] | | | involving | [address] [place] | | | | | [place] | MARKO MCGUIRE | [place] | | | | | coronary | [address] | [address] | | | | | artery of | Phone: | Phone: | | | | | [place] heart | [phone] | [phone] | | | | | without | Fax: | Fax: | | | | | angina | [phone] | [phone] | | | | | pectoris | | | + + + + + + + Encounter Details +--------+---------+ + + + | Date | Type | Department | Care Team | Description | +--------+---------+ + + + | 09/21/ | Office | [facility] | Rahulyazshiraz Lindarahul, | Coronary artery | | 2019 | Visit | MED CTR CARDIAC | MD [address] | disease, angina | | | | REHABILITATION [address] | [address] [place], | presence | | | | [address] [place] | [place] [address] | unspecified, | | | | [place] [address] | [phone] | unspecified vessel | | | | [phone] | | or lesion type, | | | | | | unspecified whether | | | | | | [place] or | | | | | | [...] note may be different from the original. [facility] [address] [place] [address] Cardiac Rehab Date: 09/21/2018 Patient Information Patient Name: Bob Will Date of : 1955 Age: 62 y.o. Encounter Diagnoses Code Name Primary? I25.10 Coronary 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, angina presence unspecified, unspecified vessel or lesi on type, unspecified whether [place] or transplanted heart Yes Number of Visits [...] Visit | Rehabilitation | MD [address] | | | | | | [place], | | | | | | [place] [address] | | | | | | [phone] | | | | | | | | +--------+ + + + + | 12/16/ | Office | Cardiac | Randy Figueroa, | | | 2018 | Visit | Rehabilitation | MD [address] | | | | | | [place], | | | | | | [place] [address] | | | | | | [phone] | | | | | | | | +--------+ + + + + | 12/21/ | Office | Cardiac | Randy Figueroa, | | | 2018 | Visit | Rehabilitation | MD [address] | | | | | | [place], | | | | | | [place] [address] | | | | | | [phone] | | | | | | | | +--------+ + + + + | 12/23/ | Office | Cardiac | Randy Figueroa, | | | 2018 | Visit | Rehabilitation | MD [address] | | | | | | [place], | | | | | | [place] [address] | | | | | | [phone] | | | | | | | | +--------+ + + + + | 12/28/ | Office | Cardiac | Randy Figueroa, | | | 2018 | Visit | Rehabilitation | MD [address] | | | | | | [place], | | | | | | [place] [address] | | | | | | [phone] | | | | | | | | +--------+ + + + + | 12/30/ | Office | Cardiac | Randy Figueroa, | | | 2018 | Visit | Rehabilitation | MD [address] | | | | | | [place], | | | | | | [place] [address] | | | | | | [phone] | | | | | | | | +--------+ + + + + | 01/04/ | Office | Cardiac | Randy Figueroa, | | 2018 | Visit | Rehabilitation | MD [address] | | | | | | [place], | | | | | | [place] [address] | | | | | | [phone] | | | | | | | | +--------+ + + + + | 01/06/ | Office | Cardiac | Randy Figueroa, | | | 2018 | Visit | Rehabilitation | MD [address] | | | | | | [place], | | | | | | [place] [address] | | | | | | [phone] | | | | | | | | +--------+ + + + + | 01/11/ | Office | Cardiac | Randy Figueroa, | | | 2018 | Visit | Rehabilitation | MD [address] | | | | | | [place], | | | | | | [place] [address] | | | | | | [phone] | | | | | | | | +--------+ + + + + | 03/24/ | Procedure | Cardiology | | | | 2018 | visit | | | | +--------+ + + + + | 03/24/ | Office | Cardiology | Jenny, | | | 2018 | Visit | | ADARSH Santo [address] | | | | | | [place], | | | | | | [place] [address] | | | | | | [phone] | | | | | | | | +--------+ + + + + as of this encounter Visit Diagnoses + + | Diagnosis | + + | Coronary 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, angina presence unspecified, unspecified vessel or lesion | | type, unspecified whether [place] or transplanted heart - Primary | + +"
--- OUTSIDE RECORDS SUMMARY | ~2018-12-10 | XMS | Encounter Summary ---
Demographics + + + | Address | [address] | | | [place] [address] | + + + | Home Phone [...] | [place] | | | | | [address] | | + + + + + Care Team Providers + +------+ + | Care Geoint Analyst Name | Role | Phone | [...] | Specialty | Cardiac | Diagnoses | [place], | [facility] | | | Services | Rehabilitatio | Coronary | Janel | | | | Required | n | artery | ADARSH Jacobs | Rehabilitatio | | | | | disease | [address] | [address] | | | | | involving | [address] | [place] | | | | | [place] | [place], [place] | [place] | | | | | coronary | [address] | [address] | | | | | artery of | Phone: | Phone: | | | | | [place] heart | [phone] | [phone] | | | | | without | Fax: | Fax: | | | | | angina | [phone] | [phone] | | | | | pectoris | | | + + + + + + + Encounter Details +--------+---------+ + + + | Date | Type | Department | Care Team | Description | +--------+---------+ + + + | 10/21/ | Office | [facility] | Randy Figueroa, | Coronary artery | | 2019 | Visit | MED CTR CARDIAC | MD [address] [place] | disease, angina | | | | REHABILITATION [address] | [place], | presence | | | | [address] [place] | [place] [address] | unspecified, | | | | [place] [address] | [phone] | unspecified vessel | | | | [phone] | | or lesion type, | | | | | | unspecified whether | | | | | | [place] or | | | | | | [...] of this encounter Progress Notes Ana Thomas, CIRCUIT BOARD REPAIR TECHNICIAN - 10/21/2018 1000 PSTFormatting of this note may be different from the original. [facility] CARDIAC REHABILITATION [address] [facility] [address] Cardiac Rehab Date: 10/21/2018 Patient Information Patient Name: Bob Will Date of : 1955 Age: 62 y.o. Encounter Diagnoses Code Name Primary? I25.10 Coronary 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, angina presence unspecified, unspecified vessel or lesi on type, unspecified whether [place] or transplanted heart Yes Number of Visits [...] which is much higher than Ashok's norm. air sampling and monitoring was placed. No significant change noted from [...] had came directly to rehab from the [place] clinic where changes in medication was made. Ashok states they stopped his Entresto and increased Lasix to two tabs daily. also notified to [facility] Ashok. Any abnormal vital signs or rhythm [...] Visit | Rehabilitation | MD [address] | | | | | | [place], | | | | | | [place] [address] | | | | | | [phone] | | | | | | | | +--------+ + + + + | 12/16/ | Office | Cardiac | Randy Figueroa, | | | 2018 | Visit | Rehabilitation | MD [address] | | | | | | [place], | | | | | | [place] [address] | | | | | | [phone] | | | | | | | | +--------+ + + + + | 12/21/ | Office | Cardiac | Randy Figueroa, | | | 2018 | Visit | Rehabilitation | MD [address] | | | | | | [place], | | | | | | [place] [address] | | | | | | [phone] | | | | | | | | +--------+ + + + + | 12/23/ | Office | Cardiac | Randy Figueroa, | | | 2018 | Visit | Rehabilitation | MD [address] | | | | | | [place], | | | | | | [place] [address] | | | | | | [phone] | | | | | | | | +--------+ + + + + | 12/28/ | Office | Cardiac | Randy Figueroa, | | | 2018 | Visit | Rehabilitation | MD [address] | | | | | | [place], | | | | | | [place] [address] | | | | | | [phone] | | | | | | | | +--------+ + + + + | 12/30/ | Office | Cardiac | Randy Figueroa, | | | 2018 | Visit | Rehabilitation | MD [address] | | | | | | [place], | | | | | | [place] [address] | | | | | | [phone] | | | | | | | | +--------+ + + + + | 01/04/ | Office | Cardiac | Randy Figueroa, | | | 2018 | Visit | Rehabilitation | MD [address] [place] | | | | | | [place], | | | | | | [place] [address] | | | | | | [phone] | | | | | | | | +--------+ + + + + | 01/06/ | Office | Cardiac | Randy Figueroa, | | | 2018 | Visit | Rehabilitation | MD [address] | | | | | | [place], | | | | | | [place] [address] | | | | | | [phone] | | | | | | | | +--------+ + + + + | 01/11/ | Office | Cardiac | Randy Figueroa, | | | 2018 | Visit | Rehabilitation | MD [address] | | | | | | [place], | | | | | | [place] [address] | | | | | | [phone] | | | | | | | | +--------+ + + + + | 03/24/ | Procedure | Cardiology | | | | 2018 | visit | | | | +--------+ + + + + | 03/24/ | Office | Cardiology | Jenny, | | | 2018 | Visit | | ADARSH Santo [address] | | | | | | [place], | | | | | | [place] [address] | | | | | | [phone] | | | | | | | | +--------+ + + + + as of this encounter Visit Diagnoses + + | Diagnosis | + + | Coronary 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, angina presence unspecified, unspecified vessel or lesion | | type, unspecified whether [place] or transplanted heart - Primary | + +"
--- OUTSIDE RECORDS SUMMARY | ~2018-12-10 | XMS | Encounter Summary ---
Demographics + + + | Address | [address] | | | [place] [address] | + + + | Home Phone [...] | [place] | | | | | [address] | | + + + + + Care Team Providers + +------+ + | Care Gas Engine Operator Compressors Name | Role | Phone | + [...] | | | involving | [address] | [place] | | | | | [place] | MARKO MCGUIRE | [place] | | | | | coronary | [address] | [address] | | | | | artery of | Phone: | Phone: | | | | | [place] heart | [phone] | [phone] | | | | | without | Fax: | Fax: | | | | | angina | [phone] | [phone] | | | | | pectoris | | | + + + + + + + Encounter Details +--------+---------+ + + + | Date | Type | Department | Care Team | Description | +--------+---------+ + + + | 10/28/ | Office | [facility] | Randy Figueroa, | Coronary artery | | 2019 | Visit | MED CTR CARDIAC | MD [address] | disease, angina | | | | REHABILITATION [address] | [address] [place], | presence | | | | [address] [place] | [place] [address] | unspecified, | | | | [place] [address] | [phone] | unspecified vessel | | | | [phone] | | or lesion type, | | | | | | unspecified whether | | | | | | [place] or | | | | | | [...] may be different from the or iginal. [facility] CARDIAC REHABILITATION [address] [place] [address] Cardiac Rehab Date: 10/28/2018 Patient Information Patient Name: Bob Will Date of : 1955 Age: 62 y.o. Encounter Diagnoses Code Name Primary? I25.10 Coronary 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, angina presence unspecified, unspecified vessel or lesi on type, unspecified whether [place] or transplanted heart Yes Z98.61 Post PTCA [...] | | | | | | [place] [address] | | | | | | [phone] | | | | | | | | +--------+ + + + + | 12/16/ | Office | Cardiac | Randy Figueroa, | | | 2018 | Visit | Rehabilitation | MD [address] | | | | | | [place], | | | | | | [place] [address] | | | | | | [phone] | | | | | | | | +--------+ + + + + | 12/21/ | Office | Cardiac | Randy Figueroa, | | | 2018 | Visit | Rehabilitation | MD [address] | | | | | | [place], | | | | | | [place] [address] | | | | | | [phone] | | | | | | | | +--------+ + + + + | 12/23/ | Office | Cardiac | Randy Figueroa, | | | 2018 | Visit | Rehabilitation | MD [address] | | | | | | [place], | | | | | | [place] [address] | | | | | | [phone] | | | | | | | | +--------+ + + + + | 12/28/ | Office | Cardiac | Randy Figueroa, | | | 2018 | Visit | Rehabilitation | MD [address] | | | | | | [place], | | | | | | [place] [address] | | | | | | [phone] | | | | | | | | +--------+ + + + + | 12/30/ | Office | Cardiac | Randy Figueroa, | | | 2018 | Visit | Rehabilitation | MD [address] | | | | | | [place], | | | | | | [place] [address] | | | | | | [phone] | | | | | | | | +--------+ + + + + | 01/04/ | Office | Cardiac | Randy Figueroa, | | | 2018 | Visit | Rehabilitation | MD [address] | | | | | | [place], | | | | | | [place] [address] | | | | | | [phone] | | | | | | | | +--------+ + + + + | 01/06/ | Office | Cardiac | Randy Figueroa, | | | 2018 | Visit | Rehabilitation | MD Jav[address] | | | | | | [place], | | | | | | [place] [address] | | | | | | [phone] | | | | | | | | +--------+ + + + + | 01/11/ | Office | Cardiac | Randy Fgiueroa, | | | 2018 | Visit | Rehabilitation | MD [address] | | | | | | [place], | | | | | | [place] [address] | | | | | | [phone] | | | | | | | | +--------+ + + + + | 03/24/ | Procedure | Cardiology | | | | 2018 | visit | | | | +--------+ + + + + | 03/24/ | Office | Cardiology | Jenny, | | | 2018 | Visit | | ADARSH Santo [address] | | | | | | [place], | | | | | | [place] [address] | | | | | | [phone] | | | | | | | | +--------+ + + + + as of this encounter Visit Diagnoses + + | Diagnosis | + + | Coronary 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, angina presence unspecified, unspecified vessel or lesion | | type, unspecified whether [place] or transplanted heart - Primary | + + | Post PTCA | + + | Postsurgical percutaneous transluminal coronary angioplasty status | + +"
--- OUTSIDE RECORDS SUMMARY | ~2018-12-10 | XMS | Encounter Summary ---
Demographics + + + | Address | [address] | | | [place] [address] | + + + | Home Phone | | + + + | Preferred Language | Unknown | + + + | Marital Status | | + + + | Moravian Affiliation | Unknown | + + + | Race | Unknown | + + + | Ethnic Group | Unknown | + + + Author + + + | Author | [facility] | | | and [place] | + + + | Organization | [facility] | | | and [place] | + + + | Address | Unknown | + + + | Phone | Unavailable | + + + Support + + + + + | Name | Relationship | Address | Phone | + + + + + | Venice Will | E[place] | [place] | | | | | [address] | | + + + + + Care Team Providers + +------+ + | Care Early Morning Babysitter Name | Role | Phone | + [...] | | | involving | [address] | [place] | | | | | [place] | [place], [place] | [place] | | | | | coronary | [address] | [address] | | | | | artery of | Phone: | Phone: | | | | | [place] heart | [phone] | [phone] | | | | | without | Fax: | Fax: | | | | | angina | [phone] | [phone] | | | | | pectoris | | | + + + + + + + Encounter Details +--------+---------+ + + + | Date | Type | Department | Care Team | Description | +--------+---------+ + + + | 10/12/ | [facility] | Randy Figueroa, | Coronary artery | | 2019 | Visit | MED CTR CARDIAC | MD [address] [place] | disease, angina | | | | REHABILITATION [address] [place], | presence | | | | [address] [place] | [place] [address] | unspecified, | | | | [place] [address] | [phone] | unspecified vessel | | | | [phone] | | or lesion type, | | | | | | unspecified whether | | | | | | [place] or | | | | | | [...] note may be different from the origin [facility] CTR CARDIAC REHABILITATION [address] [place] [address] Cardiac Rehab Date: 10/12/2018 Patient Information Patient Name: Bob Will Date of : 1955 Age: 62 y.o. Encounter Diagnoses Code Name Primary? I25.10 Coronary 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, angina presence unspecified, unspecified vessel or lesi on type, unspecified whether [place] or transplanted heart Yes Z98.61 Post PTCA [...] [place], | | | | | | [place] [address] | | | | | | [phone] | | | | | | | | +--------+ + + + + | 12/16/ | Office | Cardiac | Randy Figueroa, | | | 2018 | Visit | Rehabilitation | MD [address] | | | | | | [place], | | | | | | [place] [address] | | | | | | [phone] | | | | | | | | +--------+ + + + + | 12/21/ | Office | Cardiac | Randy Figueroa, | | | 2018 | Visit | Rehabilitation | MD [address] | | | | | | [place], | | | | | | [place] [address] | | | | | | [phone] | | | | | | | | +--------+ + + + + | 12/23/ | Office | Cardiac | Randy Figueroa, | | | 2018 | Visit | Rehabilitation | MD [address] | | | | | | [place], | | | | | | [place] [address] | | | | | | [phone] | | | | | | | | +--------+ + + + + | 12/28/ | Office | Cardiac | Randy Figueroa, | | | 2018 | Visit | Rehabilitation | MD [address] | | | | | | [place], | | | | | | [place] [address] | | | | | | [phone] | | | | | | | | +--------+ + + + + | 12/30/ | Office | Cardiac | Randy Figueroa, | | | 2018 | Visit | Rehabilitation | MD [address] | | | | | | [place], | | | | | | [place] [address] | | | | | | [phone] | | | | | | | | +--------+ + + + + | 01/04/ | Office | Cardiac | Randy Figueroa, | | | 2018 | Visit | Rehabilitation | MD [address] | | | | | | [place], | | | | | | [place] [address] | | | | | | [phone] | | | | | | | | +--------+ + + + + | 01/06/ | Office | Cardiac | Randy Figueroa, | | | 2018 | Visit | Rehabilitation | MD [address] [place] | | | | | | [place], | | | | | | [place] [address] | | | | | | [phone] | | | | | | | | +--------+ + + + + | 01/11/ | Office | Cardiac | Randy Figueroa, | | | 2018 | Visit | Rehabilitation | MD [address] [place] | | | | | | [place], | | | | | | [place] [address] | | | | | | [phone] | | | | | | | | +--------+ + + + + | 03/24/ | Procedure | Cardiology | | | | 2018 | visit | | | | +--------+ + + + + | 03/24/ | Office | Cardiology | Jenny, | | | 2018 | Visit | | Hans[place], FOOD BROKER [address] | | | | | | [address] [place], | | | | | | [place] [address] | | | | | | [phone] | | | | | | | | +--------+ + + + + as of this encounter Visit Diagnoses + + | Diagnosis | + + | Coronary 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, angina presence unspecified, unspecified vessel or lesion | | type, unspecified whether [place] de[place] or transplanted heart - Primary | + + | Post PTCA | + + | Postsurgical percutaneous transluminal coronary angioplasty status | + +"
--- OUTSIDE RECORDS SUMMARY | ~2018-12-10 | XMS | Encounter Summary ---
Demographics + + + | Address | [address] [place] [address] [address] | | | [place] [address] | + + + | Home Phone | | + + + | Preferred Language | Unknown | + + + | Marital Status | | + + + | Anabaptism Affiliation | Unknown | + + + | Race | Unknown | + + + | Ethnic Group | Unknown | + + + Author + + + | Author | Cassandra Zyante | + + + | Organization | [facility] | + + + | Address | Unknown | + + + | Phone | Unavailable | + + + Support + + +---------+ + | Name | Relationship | Address | Phone | + + +---------+ + | Venice Mckeon | ECON | Unknown | | + + +---------+ + Care Team Providers + +------+ + | Care Individual Small Group Instructor Name | Role | Phone | + [...] HF chronicity, | | | | | [address] | unspecified heart | | | | [...] RON MCKEON Date of : 1955 | [facility] | | Performing Physician: Rocio | RADIOLOGY | | [place] | | | | | | INDICATIONS [...] MV A Rohan: 0.86 m/s MV Dec [place]: 3.26 m/s2 | | | MV DecT: [...] | 21.47 mmHg TR Vmax: 2.31 m/s Dental Scheduling Coordinator: ANJANA Authenticated | | | by: Rocio Pearl Report Date/Time: 11-04-2018 19:16:25 | | + + + + + | Procedure Note | + + | Sebastian, Rad Results In - 11/04/2018 7:20 PM PST Patient Name: Belkys MCKEON of | | : 5Accession: [id number] Physician: Rocio | | Alsamara INDICATIONS------ | [...] | 5.92 cmLVPWd: 1.01 cmLVOT Area: 3.17 sq6VVEJ Diam: 2.01 cm%FS: 15.56 %EF(Teich): | | [...] mlLAESV Index (A-L): 42.88 ml/m2LAAs A2C: 24.92 [id number] A-L | | A2C: 95.08 mlLALs A2C: 5.54 cmLAAs A4C: 19.37 jm7ONWGQ A-L A4C: 70.66 mlLALs | | A4C: 4.50 cmRAAs: 18.79 om9YLCJM A-L: 67.38 mlRAESV MOD: 63.17 mlRALs: 4.44 | | cmTAPSE: 2.12 cmAV maxP.82 mmHgAV meanP.56 mmHgAV Vmax: 1.30 m/Emil | | Vmean: 0.88 m/Emil VTI: 25.33 cmAVA Vmax: 2.55 cm2AVA (VTI): 2.49 nz7YSWQ (Vmax): | | 0.00 cm2/m2AVAI (VTI): 0.00 cm2/m2LVOT maxP.40 mmHgLVOT meanP.91 | | mmHgLVSI Dopp: 29.85 ml/m2LVSV Dopp: 63.29 mlLVOT Vmax: 1.04 m/sLVOT Vmean: 0.64 | | m/sLVOT VTI: 19.92 cmMV A Rohan: 0.86 m/sMV Dec [place]: 3.26 m/s2MV DecT: 218.32 | | msMV E Rohan: 0.71 m/sMV E/A Ratio: 0.82 MV PHT: 63.31 msMVA By PHT: 3.47 | | ld5Givuom e': 0.04 m/sSeptal E/e': 15.51 Lateral e': 0.06 m/sLateral E/e': 10.91 | | RAP: 5 mmHgRVSP: 26.47 mmHgTR maxP.47 mmHgTR Vmax: 2.31 m/sSonographer: | | DBSAuthenticated by: Rocio AlshemlockraReport Date/Time: 11-04-2018 19:16:25IMPRESSION:1. | | This was [...] A Rohan: 0.86 m/s | |MV Dec [place]: 3.26 m/s2 | |MV DecT: 218.32 ms [...] |TR Vmax: 2.31 m/s | | | |Dental Scheduling Coordinator: ANJANA | |Authenticated by: Rocio Licoeloy | [...] | [address] | [place] [address] | | + + + + + in this encounter Visit Diagnoses + + | Diagnosis | + + | Congestive heart failure, unspecified HF chronicity, unspecified heart failure type | | (HCC) | + +"
--- OUTSIDE RECORDS SUMMARY | ~2018-12-10 | XMS | Encounter Summary ---
Demographics + + + | Address | [address] | | | [place] [address] | + + + | Home Phone [...] | [place] | | | | | [address] | | + + + + + Care Team Providers + +------+ + | Care Shaper Operator Name | Role | Phone | [...] | | | involving | [address] [place] | | | | | [place] | [place] | [place] | | | | | coronary | [address] | [address] | | | | | artery of | Phone: | Phone: | | | | | [place] heart | [phone] | [phone] | | | | | without | Fax: | Fax: | | | | | angina | [phone] | [phone] | | | | | pectoris | | | + + + + + + + Encounter Details +--------+---------+ + + + | Date | Type | Department | Care Team | Description | +--------+---------+ + + + | 12/02/ | Office | [facility] | Randy Figueroa, | Coronary artery | | 2019 | Visit | MED CTR CARDIAC | MD [address] | disease involving | | | | REHABILITATION [address] | [place], | [place] coronary | | | | [address] [place] | [place] [address] | artery of [place] | | | | [place] [address] | [phone] | heart without angina | | | | [phone] | | pectoris (Primary | | | [...] may be different from the origin al. [facility] MED [facility] CARDIAC REHABILITATION [address] [place] [address] Cardiac Rehab Date: 12/02/2018 Patient Information Patient Name: Bob Will Date of : 1955 Age: 63 y.o. Encounter Diagnoses Code Name Primary? I25.10 Coronary 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 involving [place] coronary artery of [place] heart without angina pectoris Yes Z98.61 Post [...] Visit | Rehabilitation | MD [address] | | | | | | [place], | | | | | | [place] [address] | | | | | | [phone] | | | | | | | | +--------+ + + + + | 12/16/ | Office | Cardiac | Randy Figueroa, | | | 2018 | Visit | Rehabilitation | MD [address] | | | | | | [place], | | | | | | [place] [address] | | | | | | [phone] | | | | | | | | +--------+ + + + + | 12/21/ | Office | Cardiac | Randy Figueroa, | | | 2018 | Visit | Rehabilitation | MD [address] | | | | | | [place], | | | | | | [place] [address] | | | | | | [phone] | | | | | | | | +--------+ + + + + | 12/23/ | Office | Cardiac | Randy Figueroa, | | | 2018 | Visit | Rehabilitation | MD [address] | | | | | | [place], | | | | | | [place] [address] | | | | | | [phone] | | | | | | | | +--------+ + + + + | 12/28/ | Office | Cardiac | Randy Figueroa, | | | 2018 | Visit | Rehabilitation | MD [address] | | | | | | [place], | | | | | | [place] [address] | | | | | | [phone] | | | | | | | | +--------+ + + + + | 12/30/ | Office | Cardiac | Randy Figueroa, | | | 2018 | Visit | Rehabilitation | MD [address] | | | | | | [place], | | | | | | [place] [address] | | | | | | [phone] | | | | | | | | +--------+ + + + + | 01/04/ | Office | Cardiac | Randy Figueroa, | | | 2018 | Visit | Rehabilitation | MD [address] | | | | | | [place], | | | | | | [place] [address] | | | | | | [phone] | | | | | | | | +--------+ + + + + | 01/06/ | Office | Cardiac | Randy Figueroa, | | | 2018 | Visit | Rehabilitation | MD [address] | | | | | | [place], | | | | | | [place] [address] | | | | | | [phone] | | | | | | | | +--------+ + + + + | 01/11/ | Office | Cardiac | Randy Figueroa, | | | 2018 | Visit | Rehabilitation | MD [address] | | | | | | [place], | | | | | | [place] [address] | | | | | | [phone] | | | | | | | | +--------+ + + + + | 03/24/ | Procedure | Cardiology | | | | 2018 | visit | | | | +--------+ + + + + | 03/24/ | Office | Cardiology | [place], | | | 2018 | Visit | | ADARSH Santo [address] | | | | | | [place], | | | | | | [place] [address] | | | | | | [phone] | | | | | | | | +--------+ + + + + as of this encounter Visit Diagnoses + + | Diagnosis | + + | Coronary 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 involving [place] coronary artery of [place] heart without | | angina pectoris - Primary | + + | Post PTCA | + + | Postsurgical percutaneous transluminal coronary angioplasty status | + +"
--- OUTSIDE RECORDS SUMMARY | ~2018-12-10 | XMS | Encounter Summary ---
Demographics + + + | Address | [address] | | | [place] [address] | + + + | Home Phone [...] [place] | | | | | [address] | | + + + + + Care Team Providers + +------+ + | Care Road Crossing Guard Name | Role | Phone | + +------+ + | Young Haque DO | PCP | | + +------+ + Encounter Details +--------+ + + + + | Date | Type | Department | Care Team | Description | +--------+ + + + + | 03/19/ | Abstract | [facility] [place] | Jenny, | | | 2018 | | CARDIOLOGY [address] | [place] MEDIA RELATIONS INTERN [address] | | | | | [place], | [place], | | | | | [place] [address] | [place] [address] | | | | | [phone] | [phone] | | | | | | | [...] Visit | Rehabilitation | MD [address] [place] | | | | | | [place], | | | | | | [place] [address] | | | | | | [phone] | | | | | | | | +--------+ + + + + | 12/16/ | Office | Cardiac | Randy Figueroa, | | | 2018 | Visit | Rehabilitation | MD [address] [place] | | | | | | [place], | | | | | | [place] [address] | | | | | | [phone] | | | | | | | | +--------+ + + + + | 12/21/ | Office | Cardiac | Randy Figueroa, | | | 2018 | Visit | Rehabilitation | MD [address] [place] | | | | | | [place], | | | | | | [place] [address] | | | | | | [phone] | | | | | | | | +--------+ + + + + | 12/23/ | Office | Cardiac | Randy Figueroa, | | | 2018 | Visit | Rehabilitation | MD [address] [place] | | | | | | [place], | | | | | | [place] [address] | | | | | | [phone] | | | | | | | | +--------+ + + + + | 12/28/ | Office | Cardiac | Randy Figueroa, | | | 2018 | Visit | Rehabilitation | MD [address] [place] | | | | | | [place], | | | | | | [place] [address] | | | | | | [phone] | | | | | | | | +--------+ + + + + | 12/30/ | Office | Cardiac | Randy Figueroa, | | | 2018 | Visit | Rehabilitation | MD [address] [place] | | | | | | [place], | | | | | | [place] [address] | | | | | | [phone] | | | | | | | | +--------+ + + + + | 01/04/ | Office | Cardiac | Randy Figueroa, | | | 2018 | Visit | Rehabilitation | MD [address] | | | | | | [place], | | | | | | [place] [address] | | | | | | [phone] | | | | | | | | +--------+ + + + + | 01/06/ | Office | Cardiac | Randy Figueroa, | | | 2018 | Visit | Rehabilitation | [address] [place] | | | | | | [place], | | | | | | [place] [address] | | | | | | [phone] | | | | | | | | +--------+ + + + + | 01/11/ | Office | Cardiac | Randy Figueroa, | | | 2018 | Visit | Rehabilitation | [address] | | | | | | [place], | | | | | | [place] [address] | | | | | | [phone] | | | | | | | | +--------+ + + + + | 03/24/ | Procedure | Cardiology | | | | 2018 | visit | | | | +--------+ + + + + | 03/24/ | Office | Cardiology | Jenny, | | | 2018 | Visit | | ADARSH Santo [address] | | | | | | [place], | | | | | | [place] [address] | | | | | | [phone] | | | | | | | [...] + + + in this encounter Results Comprehensive Metabolic Panel [...] Lab: BUN (11/12/2018) + +--------+ + + | Component | Value | Ref Range | Performed At | + +--------+ + + | BUN, External | 47 (A) | 6 - 23 | EXTERNAL LAB | + +--------+ + + + +---------+ + + | Performing | Address | City/State/Zipcode | Phone Number | | Organization | | | | + +---------+ + + | EXTERNAL LAB | | | | + +---------+ + + External Lab: Glucose (11/12/2018) + +-------+ + + | Component | Value | Ref Range | Performed At | + +-------+ + + | Glucose, External | 93 | 70 - 100 | EXTERNAL LAB | + +-------+ + + + +---------+ + + | Performing | Address | City/State/Zipcode | Phone Number | | Organization | | | | + +---------+ + + | EXTERNAL LAB | | | | + +---------+ + + External Lab: Calcium (11/12/2018) + +-------+ + + | Component | Value | Ref Range | Performed At | + +-------+ + + | Calcium, External | 9.0 | 8.5 - 10.3 | EXTERNAL LAB | + +-------+ + + + +---------+ + + | Performing | Address | City/State/Zipcode | Phone Number | | Organization | | | | + +---------+ + + | EXTERNAL LAB | | | | + +---------+ + + External Lab: Chloride (11/12/2018) + +-------+ + + | Component | Value | Ref Range | Performed At | + +-------+ + + | Chloride, External | 105 | 95 - 112 | EXTERNAL LAB | + +-------+ + + + +---------+ + + | Performing | Address | City/State/Zipcode | Phone Number | | Organization | | | | + +---------+ + + | EXTERNAL LAB | | | | + +---------+ + + External Lab: Potassium (11/12/2018) + +-------+ + + | Component | Value | Ref Range | Performed At | + +-------+ + + | Potassium, External | 4.4 | 3.6 - 5.1 | EXTERNAL LAB | + +-------+ + + + +---------+ + + | Performing | Address | City/State/Zipcode | Phone Number | | Organization | | | | + +---------+ + + | EXTERNAL LAB | | | | + +---------+ + + External Lab: Sodium (11/12/2018) + +---------+ + + | Component | Value | Ref Range | Performed At | + +---------+ + + | Sodium, External | 144 (A) | 132 - 143 | EXTERNAL LAB | + +---------+ + + + +---------+ + + | Performing | Address | City/State/Zipcode | Phone Number | | Organization | | | | + +---------+ + + | EXTERNAL LAB | | | | + +---------+ + + External Lab: eGFR (11/12/2018) + +-------+ + + | Component | Value | Ref Range | Performed At | + +-------+ + + | eGFR, External | 29 | 29 | EXTERNAL LAB | + +-------+ + [...] Creatinine (11/12/2018) + + + + + | Component | Value | Ref Range | Performed At | + + + + + | Creatinine, External | 2.30 (A) | 0.7 - 1.25 [...]
--- OUTSIDE RECORDS SUMMARY | ~2018-12-10 | XMS | Encounter Summary ---
Demographics + + + | Address | [address] | | | [place] [address] | + + + | Home Phone [...] [place] | | | | | [address] | | + + + + + Care Team Providers + +------+ + | Care Rubber Insulator Name | Role | Phone | [...] + + | 11/18/ | Telephone | [facility] | Jenny, | Blood Pressure | | 2019 | | CARDIOLOGY [address] | [place], CUSTOMER SUPPORT ASSOCIATE [address] | | | | | [place], | [place], | | | | | [place] [address] | [place] [address] | | | | | [phone] | [phone] | | | | | | | [...] | | | | | | [place] [address] | | | | | | [phone] | | | | | | | | +--------+ + + + + | 12/16/ | Office | Cardiac | Randy Figueroa, | | | 2018 | Visit | Rehabilitation | MD [address]av[address] | | | | | | [place], | | | | | | [place] [address] | | | | | | [phone] | | | | | | | | +--------+ + + + + | 12/21/ | Office | Cardiac | Randy Figueroa, | | | 2018 | Visit | Rehabilitation | MD Jav[address] Cresp[address] | | | | | | [place], | | | | | | [place] [address] | | | | | | [phone] | | | | | | | | +--------+ + + + + | 12/23/ | Office | Cardiac | Randy Figueroa, | | | 2018 | Visit | Rehabilitation | MD [address] [place] | | | | | | [place], | | | | | | [place] [address] | | | | | | [phone] | | | | | | | | +--------+ + + + + | 12/28/ | Office | Cardiac | Randy Figueroa, | | | 2018 | Visit | Rehabilitation | MD [address] [place] | | | | | | [place], | | | | | | [place] [address] | | | | | | [phone] | | | | | | | | +--------+ + + + + | 12/30/ | Office | Cardiac | Randy Figueroa, | | | 2018 | Visit | Rehabilitation | MD [address] [place] | | | | | | [place], | | | | | | [place] [address] | | | | | | [phone] | | | | | | | | +--------+ + + + + | 01/04/ | Office | Cardiac | Randy Figueroa, | | | 2018 | Visit | Rehabilitation | MD [address] [place] | | | | | | [place], | | | | | | [place] [address] | | | | | | [phone] | | | | | | | | +--------+ + + + + | 01/06/ | Office | Cardiac | Randy Figueroa, | | | 2018 | Visit | Rehabilitation | MD [address] [place] | | | | | | [place], | | | | | | [place] [address] | | | | | | [phone] | | | | | | | | +--------+ + + + + | 01/11/ | Office | Cardiac | Randy Figueroa, | | | 2018 | Visit | Rehabilitation | MD [address] [place] | | | | | | [place], | | | | | | [place] [address] | | | | | | [phone] | | | | | | | [...] | | | | | | [place] [address] | | | | | | [phone] | | | | | | | | +--------+ + + + + as of this encounter Visit Diagnoses Not on filein this encounter"
--- OUTSIDE RECORDS SUMMARY | ~2018-12-10 | XMS | Encounter Summary ---
Demographics + + + | Address | [address] | | | [place] [address] | + + + | Home Phone [...] [place] | | | | | [address] | | + + + + + Care Team Providers + +------+ + | Care Partition Assembly Machine Operator Name | Role | Phone [...] | | | involving | [address] [place] | | | | | [place] | [place] | [place] | | | | | coronary | [address] | [address] | | | | | artery of | Phone: | Phone: | | | | | [place] heart | [phone] | [phone] | | | | | without | Fax: | Fax: | | | | | angina | [phone] | [phone] | | | | | pectoris | | | + + + + + + + Encounter Details +--------+---------+ + + + | Date | Type | Department | Care Team | Description | +--------+---------+ + + + | 12/09/ | Office | [facility] | Randy Figueroa, | Coronary artery | | 2019 | Visit | MED CTR CARDIAC | MD [address] | disease involving | | | | REHABILITATION [address] | [place], | [place] coronary | | | | [address] [place] | [place] [address] | artery of [place] | | | | [place] [address] | [phone] | heart without angina | | | | [phone] | | pectoris (Primary | | | [...] | | | | | | [place] [address] | | | | | | [phone] | | | | | | | | +--------+ + + + + | 12/16/ | Office | Cardiac | Randy Figueroa, | | | 2018 | Visit | Rehabilitation | MD [address] | | | | | | [place], | | | | | | [place] [address] | | | | | | [phone] | | | | | | | | +--------+ + + + + | 12/21/ | Office | Cardiac | Randy Figueroa, | | | 2018 | Visit | Rehabilitation | MD [address] | | | | | | [place], | | | | | | [place] [address] | | | | | | [phone] | | | | | | | | +--------+ + + + + | 12/23/ | Office | Cardiac | Randy Figueroa, | | | 2018 | Visit | Rehabilitation | MD [address] | | | | | | [place], | | | | | | [place] [address] | | | | | | [phone] | | | | | | | | +--------+ + + + + | 12/28/ | Office | Cardiac | Randy Figueroa, | | | 2018 | Visit | Rehabilitation | MD [address] | | | | | | [place], | | | | | | [place] [address] | | | | | | [phone] | | | | | | | | +--------+ + + + + | 12/30/ | Office | Cardiac | Randy Figueroa, | | | 2018 | Visit | Rehabilitation | MD [address] | | | | | | [place], | | | | | | [place] [address] | | | | | | [phone] | | | | | | | | +--------+ + + + + | 01/04/ | Office | Cardiac | Randy Figueroa, | | | 2018 | Visit | Rehabilitation | MD [address] | | | | | | [place], | | | | | | [place] [address] | | | | | | [phone] | | | | | | | | +--------+ + + + + | 01/06/ | Office | Cardiac | Randy Figueroa, | | | 2018 | Visit | Rehabilitation | MD [address] | | | | | | [place], | | | | | | [place] [address] | | | | | | [phone] | | | | | | | | +--------+ + + + + | 01/11/ | Office | Cardiac | Randy Figueroa, | | | 2018 | Visit | Rehabilitation | MD [address] | | | | | | [place], | | | | | | [place] [address] | | | | | | [phone] | | | | | | | | +--------+ + + + + | 03/24/ | Procedure | Cardiology | | | | 2018 | visit | | | | +--------+ + + + + | 03/24/ | Office | Cardiology | Jenny, | | | 2018 | Visit | | AADRSH Santo [address] | | | | | | [place], | | | | | | [place] [address] | | | | | | [phone] | | | | | | | | +--------+ + + + + as of this encounter Visit Diagnoses + + | Diagnosis | + + | Coronary 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 involving [place] coronary artery of [place] heart without | | angina pectoris - Primary | + + | Post PTCA | + + | Postsurgical percutaneous transluminal coronary angioplasty status | + +"
--- OUTSIDE RECORDS SUMMARY | ~2018-12-10 | XMS | Encounter Summary ---
Demographics + + + | Address | [address] [place] [address] [address] | | | [place] [address] | + + + | Home Phone | | + + + | Preferred Language | Unknown | + + + | Marital Status | | + + + | Mandaeism Affiliation | Unknown | + + + | Race | Unknown | + + + | Ethnic Group | Unknown | + + + Author + + + | Author | Cassandra [facility]lic[facility] | + + + | Organization | [facility] | + + + | Address | Unknown | + + + | Phone | Unavailable | + + + Support + + +---------+ + | Name | Relationship | Address | Phone | + + +---------+ + | [place] Mckeon | ECON | Unknown | | + + +---------+ + Care Team Providers + +------+ + | Care Sled Maker Name | Role | Phone | [...] HF chronicity, | | | | | [address] | unspecified heart | | | | [...] Date of : 1955 | [facility] | | Performing Physician: Rocio | RADIOLOGY | | [place] | | | | | | INDICATIONS [...] MV A Rohan: 0.86 m/s MV Dec [place]: 3.26 m/s2 | | | MV DecT: [...] | 21.47 mmHg TR Vmax: 2.31 m/s Air Tester: ANJANA Authenticated | | | by: Rocio Pearl Report Date/Time: 11-04-2018 19:16:25 | | + + + + + | Procedure Note | + + | Sebastian, Rad Results In - 11/04/2018 7:20 PM PST Patient Name: Belkys MCKEON of | | : 5Accession: [id number] Physician: Rocio | | Alsamara INDICATIONS------ | [...] | 5.92 cmLVPWd: 1.01 cmLVOT Area: 3.17 hy6ITZW Diam: 2.01 cm%FS: 15.56 %EF(Teich): | | [...] mlLAESV Index (A-L): 42.88 ml/m2LAAs A2C: 24.92 ie1DARSW A-L | | A2C: 95.08 mlLALs A2C: 5.54 cmLAAs A4C: 19.37 se4KGOLS A-L A4C: 70.66 mlLALs | | A4C: 4.50 cmRAAs: 18.79 rk3PQUXR A-L: 67.38 mlRAESV MOD: 63.17 mlRALs: 4.44 | | cmTAPSE: 2.12 cmAV maxP.82 mmHgAV meanP.56 mmHgAV Vmax: 1.30 m/Emil | | Vmean: 0.88 m/Emil VTI: 25.33 cmAVA Vmax: 2.55 cm2AVA (VTI): 2.49 wb3UMVK (Vmax): | | 0.00 cm2/m2AVAI (VTI): 0.00 cm2/m2LVOT maxP.40 mmHgLVOT meanP.91 | | mmHgLVSI Dopp: 29.85 ml/m2LVSV Dopp: 63.29 mlLVOT Vmax: 1.04 m/sLVOT Vmean: 0.64 | | m/sLVOT VTI: 19.92 cmMV A Rohan: 0.86 m/sMV Dec [place]: 3.26 m/s2MV DecT: 218.32 | | msMV E Rohan: 0.71 m/sMV E/A Ratio: 0.82 MV PHT: 63.31 msMVA By PHT: 3.47 | | dk3Pqqtxn e': 0.04 m/sSeptal E/e': 15.51 Lateral e': 0.06 m/sLateral E/e': 10.91 | | RAP: 5 mmHgRVSP: 26.47 mmHgTR maxP.47 mmHgTR Vmax: 2.31 m/sSonographer: | | DBSAuthenticated by: Rocio [place] cityraReport Date/Time: 11-04-2018 19:16:25IMPRESSION:1. | | This was [...] A Rohan: 0.86 m/s | |MV Dec [place]: 3.26 m/s2 | |MV DecT: 218.32 ms [...] |TR Vmax: 2.31 m/s | | | |Air Tester: ANJANA | |Authenticated by: Rocio Licoeloy | [...] | [address] | [place] [address] | | + + + + + in this encounter Visit Diagnoses + + | Diagnosis | + + | Congestive heart failure, unspecified HF chronicity, unspecified heart failure type | | (HCC) | + +"
--- OUTSIDE RECORDS SUMMARY | ~2018-12-10 | XMS | Encounter Summary ---
Demographics + + + | Address | [address] | | | [place] [address] | + + + | Home Phone | | + + + | Preferred Language | Unknown | + + + | Marital Status | | + + + | Congregation Affiliation | Unknown | + + + | Race | Unknown | + + + | Ethnic Group | Unknown | + + + Author + + + | Author | [facility] | | | and [place] | + + + | Organization | [facility] | | | and [place] | + + + | Address | Unknown | + + + | Phone | Unavailable | + + + Support + + + + + | Name | Relationship | Address | Phone | + + + + + | Venice Will | ECON | [place] | | | | | [address] | | + + + + + Care Team Providers + +------+ + | Care Swift Tender Name | Role | Phone | [...] | | | involving | [address] [place] | | | | | [place] | [place] | [place] | | | | | coronary | [address] | [address] | | | | | artery of | Phone: | Phone: | | | | | [place] heart | [phone] | [phone] | | | | | without | Fax: | Fax: | | | | | angina | [phone] | [phone] | | | | | pectoris | | | + + + + + + + Encounter Details +--------+---------+ + + + | Date | Type | Department | Care Team | Description | +--------+---------+ + + + | 11/30/ | Office | [facility] | Carolina Randy, | Coronary artery | | 2019 | Visit | MED CTR CARDIAC | MD [address] | disease involving | | | | REHABILITATION [address] [place], | [place] coronary | | | | [address] [place] | [place] [address] | artery of [place] | | | | [place] [address] | [phone] | heart without angina | | | | [phone] | | pectoris (Primary | | | [...] may be different from the origin al. [facility] MED CTR CARDIAC REHABILITATION [address] [place] [address] Cardiac Rehab Date: 11/30/2018 Patient Information Patient Name: Bob Will Date of : 1955 Age: 63 y.o. Encounter Diagnoses Code Name Primary? I25.10 Coronary 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 involving [place] coronary artery of [place] heart without angina pectoris Yes Z98.61 Post [...] Visit | Rehabilitation | MD [address] | | | | | | [place], | | | | | | [place] [address] | | | | | | [phone] | | | | | | | | +--------+ + + + + | 12/16/ | Office | Cardiac | Randy Figueroa, | | | 2018 | Visit | Rehabilitation | MD [address] | | | | | | [place], | | | | | | [place] [address] | | | | | | [phone] | | | | | | | | +--------+ + + + + | 12/21/ | Office | Cardiac | Randy Figueroa, | | | 2018 | Visit | Rehabilitation | MD [address] | | | | | | [place], | | | | | | [place] [address] | | | | | | [phone] | | | | | | | | +--------+ + + + + | 12/23/ | Office | Cardiac | Randy Figueroa, | | | 2018 | Visit | Rehabilitation | MD [address] | | | | | | [place], | | | | | | [place] [address] | | | | | | [phone] | | | | | | | | +--------+ + + + + | 12/28/ | Office | Cardiac | Randy Figueroa, | | | 2018 | Visit | Rehabilitation | MD [address] | | | | | | [place], | | | | | | [place] [address] | | | | | | [phone] | | | | | | | | +--------+ + + + + | 12/30/ | Office | Cardiac | Randy Figueroa, | | | 2018 | Visit | Rehabilitation | MD [address] [place] | | | | | | [place], | | | | | | [place] [address] | | | | | | [phone] | | | | | | | | +--------+ + + + + | 01/04/ | Office | Cardiac | Randy Figueroa, | | 2018 | Visit | Rehabilitation | MD [address] | | | | | | [place], | | | | | | [place] [address] | | | | | | [phone] | | | | | | | | +--------+ + + + + | 01/06/ | Office | Cardiac | Randy Figueroa, | | | 2018 | Visit | Rehabilitation | MD [address] | | | | | | [place], | | | | | | [place] [address] | | | | | | [phone] | | | | | | | | +--------+ + + + + | 01/11/ | Office | Cardiac | Randy Figueroa, | | | 2018 | Visit | Rehabilitation | [address] | | | | | | [place], | | | | | | [place] [address] | | | | | | [phone] | | | | | | | | +--------+ + + + + | 03/24/ | Procedure | Cardiology | | | | 2018 | visit | | | | +--------+ + + + + | 03/24/ | Office | Cardiology | Jenny, | | | 2018 | Visit | | [facility] [address] | | | | | [place], | | | | | | [place] [address] | | | | | | [phone] | | | | | | | | +--------+ + + + + as of this encounter Visit Diagnoses + + | Diagnosis | + + | Coronary 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 involving [place] coronary artery of [place] heart without | | angina pectoris - Primary | + + | Post PTCA | + + | Postsurgical percutaneous transluminal coronary angioplasty status | + +"
--- OUTSIDE RECORDS SUMMARY | ~2018-12-10 | XMS | Encounter Summary ---
Demographics + + + | Address | [address] | | | [place] [address] | + + + | Home Phone | | + + + | Preferred Language | Unknown | + + + | Marital Status | | + + + | Caodaism Affiliation | Unknown | + + + | Race | Unknown | + + + | Ethnic Group | Unknown | + + + Author + + + | Author | [facility] | | | and [place] | + + + | Organization | [facility] | | | and [place] | + + + | Address | Unknown | + + + | Phone | Unavailable | + + + Support + + + + + | Name | Relationship | Address | Phone | + + + + + | [place] Will | ECON | [place] | | | | | [address] | | + + + + + Care Team Providers + +------+ + | Care Ui Application Developer Name | Role | Phone | [...] | | CARDIOLOGY [address] | [address] | | | | | [address], | [place], | | | | | [place] [address] | [place] [address] | | | | | [phone] | [phone] | | | | | | | [...] Visit | Rehabilitation | MD [address] | | | | | | [place], | | | | | | [place] [address] | | | | | | [phone] | | | | | | | | +--------+ + + + + | 12/16/ | Office | Cardiac | Randy Figueroa, | | | 2018 | Visit | Rehabilitation | MD [address] | | | | | | [place], | | | | | | [place] [address] | | | | | | [phone] | | | | | | | | +--------+ + + + + | 12/21/ | Office | Cardiac | Randy Figueroa, | | | 2018 | Visit | Rehabilitation | MD [address] | | | | | | [place], | | | | | | [place] [address] | | | | | | [phone] | | | | | | | | +--------+ + + + + | 12/23/ | Office | Cardiac | Randy Figueroa, | | | 2018 | Visit | Rehabilitation | MD [address] | | | | | | [place], | | | | | | [place] [address] | | | | | | [phone] | | | | | | | | +--------+ + + + + | 12/28/ | Office | Cardiac | Randy Figueroa, | | | 2018 | Visit | Rehabilitation | MD [address] | | | | | | [place], | | | | | | [place] [address] | | | | | | [phone] | | | | | | | | +--------+ + + + + | 12/30/ | Office | Cardiac | Randy Figueroa, | | | 2018 | Visit | Rehabilitation | MD [address] | | | | | | [place], | | | | | | [place] [address] | | | | | | [phone] | | | | | | | | +--------+ + + + + | 01/04/ | Office | Cardiac | Randy Figueroa, | | | 2018 | Visit | Rehabilitation | MD [address] | | | | | | [place], | | | | | | [place] [address] | | | | | | [phone] | | | | | | | | +--------+ + + + + | 01/06/ | Office | Cardiac | Randy Figueroa, | | | 2018 | Visit | Rehabilitation | MD [address] | | | | | | [place], | | | | | | [place] [address] | | | | | | [phone] | | | | | | | | +--------+ + + + + | 01/11/ | Office | Cardiac | Randy Figueroa, | | | 2018 | Visit | Rehabilitation | MD [address] | | | | | | [place], | | | | | | [place] [address] | | | | | | [phone] | | | | | | | [...] [place], | | | | | | [place] [address] | | | | | | [phone] | | | | | | | | +--------+ + + + + as of this encounter Visit Diagnoses Not on filein this encounter"
--- OUTSIDE RECORDS SUMMARY | ~2018-12-10 | XMS | Encounter Summary ---
Demographics + + + | Address | [address] | | | [place] [address] | + + + | Home Phone | | + + + | Preferred Language | Unknown | + + + | Marital Status | | + + + | Taoism Affiliation | Unknown | + + + | Race | Unknown | + + + | Ethnic Group | Unknown | + + + Author + + + | Author | [facility] | | | and [place] | + + + | Organization | [facility] | | | and [place] | + + + | Address | Unknown | + + + | Phone | Unavailable | + + + Support + + + + + | Name | Relationship | Address | Phone | + + + + + | [place] Will | ECON | [place] | | | | | [address] | | + + + + + Care Team Providers + +------+ + | Care Mental Hygienist Name | Role | Phone | + [...] | | | involving | [address] [place] | | | | | venetie | [place] | [place] | | | | | coronary | [address] | [address] | | | | | artery of | Phone: | Phone: | | | | | [place]ie heart | [phone] | [phone] | | | | | without | Fax: | Fax: | | | | | angina | [phone] | [phone] | | | | | pectoris | | | + + + + + + + Encounter Details +--------+---------+ + + + | Date | Type | Department | Care Team | Description | +--------+---------+ + + + | 11/30/ | Office | [facility] | Carolina Randy, | Coronary artery | | 2019 | Visit | MED CTR CARDIAC | MD [address] | disease involving | | | | REHABILITATION [address] [place], | [place]ie coronary | | | | [address] [place] | [place] [address] | artery of ven[place]ie | | | | [place] [address] | [phone] | heart without angina | | | | [phone] | | pectoris (Primary | | | [...] may be different from the origin al. [facility] MED CTR CARDIAC REHABILITATION [address] [place] [address] Cardiac Rehab Date: 11/30/2018 Patient Information Patient Name: Bob Will Date of : 1955 Age: 63 y.o. Encounter Diagnoses Code Name Primary? I25.10 Coronary 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 involving venetie coronary artery of venetie heart without angina pectoris Yes Z98.61 Post [...] Visit | Rehabilitation | MD [address] | | | | | | [place], | | | | | | [place] [address] | | | | | | [phone] | | | | | | | | +--------+ + + + + | 12/16/ | Office | Cardiac | Randy Figueroa, | | | 2018 | Visit | Rehabilitation | MD [address] | | | | | | [place], | | | | | | [place] [address] | | | | | | [phone] | | | | | | | | +--------+ + + + + | 12/21/ | Office | Cardiac | Randy Figueroa, | | | 2018 | Visit | Rehabilitation | MD [address] | | | | | | [place], | | | | | | [place] [address] | | | | | | [phone] | | | | | | | | +--------+ + + + + | 12/23/ | Office | Cardiac | Randy Figueroa, | | | 2018 | Visit | Rehabilitation | MD [address] | | | | | | [place], | | | | | | [place] [address] | | | | | | [phone] | | | | | | | | +--------+ + + + + | 12/28/ | Office | Cardiac | Randy Figueroa, | | | 2018 | Visit | Rehabilitation | MD [address] | | | | | | [place], | | | | | | [place] [address] | | | | | | [phone] | | | | | | | | +--------+ + + + + | 12/30/ | Office | Cardiac | Randy Figueroa, | | | 2018 | Visit | Rehabilitation | MD [address] | | | | | | [place], | | | | | | [place] [address] | | | | | | [phone] | | | | | | | | +--------+ + + + + | 01/04/ | Office | Cardiac | Randy Figueroa, | | 2018 | Visit | Rehabilitation | MD [address] | | | | | | [place], | | | | | | [place] [address] | | | | | | [phone] | | | | | | | | +--------+ + + + + | 01/06/ | Office | Cardiac | Randy Figueroa, | | | 2018 | Visit | Rehabilitation | MD [address] | | | | | | [place], | | | | | | [place] [address] | | | | | | [phone] | | | | | | | | +--------+ + + + + | 01/11/ | Office | Cardiac | Randy Figueroa, | | | 2018 | Visit | Rehabilitation | [address] | | | | | | [place], | | | | | | [place] [address] | | | | | | [phone] | | | | | | | | +--------+ + + + + | 03/24/ | Procedure | Cardiology | | | | 2018 | visit | | | | +--------+ + + + + | 03/24/ | Office | Cardiology | Jenny, | | | 2018 | Visit | | HansaADARSH [address] | | | | | | [place], | | | | | | [place] [address] | | | | | | [phone] | | | | | | | | +--------+ + + + + as of this encounter Visit Diagnoses + + | Diagnosis | + + | Coronary 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 involving venetie coronary artery of venetie heart without | | angina pectoris - Primary | + + | Post PTCA | + + | Postsurgical percutaneous transluminal coronary angioplasty status | + +"
--- OUTSIDE RECORDS SUMMARY | ~2018-12-10 | XMS | Encounter Summary ---
Demographics + + + | Address | [address] | | | [place] [address] | + + + | Home Phone [...] [place] | | | | | [address] | | + + + + + Care Team Providers + +------+ + | Care Fleet Operations Manager Name | Role | Phone | [...] | 12/06/ | Refill | [facility] | Jenny, | Medication Refill | | 2018 | | CARDIOLOGY [address] | AD[address]SH [address] | | | | | [place], | [place], | | | | | [place] [address] | [place] [address] | | | | | [phone] | [phone] | | | | | | | [...] 12/14/ | Office | Cardiac | Randy Fiugeroa, | | | 2018 | Visit | Rehabilitation | MD [address] | | | | | | [place], | | | | | | [place] [address] | | | | | | [phone] | | | | | | | | +--------+ + + + + | 12/16/ | Office | Cardiac | Randy Figueroa, | | | 2018 | Visit | Rehabilitation | MD [address] | | | | | | [place], | | | | | | [place] [address] | | | | | | [phone] | | | | | | | | +--------+ + + + + | 12/21/ | Office | Cardiac | Randy Figueroa, | | | 2018 | Visit | Rehabilitation | MD [address] | | | | | | [place], | | | | | | [place] [address] | | | | | | [phone] | | | | | | | | +--------+ + + + + | 12/23/ | Office | Cardiac | Randy Figueroa, | | | 2018 | Visit | Rehabilitation | MD [address] | | | | | | [place], | | | | | | [place] [address] | | | | | | [phone] | | | | | | | | +--------+ + + + + | 12/28/ | Office | Cardiac | Randy Figueroa, | | | 2018 | Visit | Rehabilitation | MD [address] | | | | | | [place], | | | | | | [place] [address] | | | | | | [phone] | | | | | | | | +--------+ + + + + | 12/30/ | Office | Cardiac | Randy Figueroa, | | | 2018 | Visit | Rehabilitation | MD [address] | | | | | | [place], | | | | | | [place] [address] | | | | | | [phone] | | | | | | | | +--------+ + + + + | 01/04/ | Office | Cardiac | Randy Figueroa, | | | 2018 | Visit | Rehabilitation | MD [address] | | | | | | [place], | | | | | | [place] [address] | | | | | | [phone] | | | | | | | | +--------+ + + + + | 01/06/ | Office | Cardiac | Randy Figueroa, | | | 2018 | Visit | Rehabilitation | MD [address] | | | | | | [place], | | | | | | [place] [address] | | | | | | [phone] | | | | | | | | +--------+ + + + + | 01/11/ | Office | Cardiac | Randy Figueroa, | | | 2018 | Visit | Rehabilitation | MD [address] | | | | | | [place], | | | | | | [place] [address] | | | | | | [phone] | | | | | | | [...] | | | | | | [place] [address] | | | | | | [phone] | | | | | | | | +--------+ + + + + as of this encounter Visit Diagnoses Not on filein this encounter"
--- OUTSIDE RECORDS SUMMARY | ~2018-12-10 | XMS | Encounter Summary ---
Demographics + + + | Address | [address] | | | [place] [address] | + + + | Home Phone [...] [place] | | | | | [address] | | + + + + + Care Team Providers + +------+ + | Care Miller Head Assistant Wet Process Name | Role | Phone | + [...] | | | | | | [place] [address] | | | | | | [phone] | | | +--------+ + + + [...] | | | | | | [place] [address] | | | | | | [phone] | | | | | | | | +--------+ + + + + | 12/16/ | Office | Cardiac | Randy Figueroa, | | | 2018 | Visit | Rehabilitation | MD [address] | | | | | | [place], | | | | | | [place] [address] | | | | | | [phone] | | | | | | | | +--------+ + + + + | 12/21/ | Office | Cardiac | Randy Figueroa, | | | 2018 | Visit | Rehabilitation | MD [address] | | | | | | [place], | | | | | | [place] [address] | | | | | | [phone] | | | | | | | | +--------+ + + + + | 12/23/ | Office | Cardiac | Randy Figueroa, | | 2018 | Visit | Rehabilitation | MD [address] | | | | | | [place], | | | | | | [place] [address] | | | | | | [phone] | | | | | | | | +--------+ + + + + | 12/28/ | Office | Cardiac | Randy Figueroa, | | | 2018 | Visit | Rehabilitation | MD [address] | | | | | | [place], | | | | | | [place] [address] | | | | | | [phone] | | | | | | | | +--------+ + + + + | 12/30/ | Office | Cardiac | Randy Figueroa, | | | 2018 | Visit | Rehabilitation | MD [address] | | | | | | [place], | | | | | | [place] [address] | | | | | | [phone] | | | | | | | | +--------+ + + + + | 01/04/ | Office | Cardiac | Randy Figueroa, | | | 2018 | Visit | Rehabilitation | MD [address] | | | | | | [place], | | | | | | [place] [address] | | | | | | [phone] | | | | | | | | +--------+ + + + + | 01/06/ | Office | Cardiac | Randy Figueroa, | | | 2018 | Visit | Rehabilitation | MD [address] | | | | | | [place], | | | | | | [place] [address] | | | | | | [phone] | | | | | | | | +--------+ + + + + | 01/11/ | Office | Cardiac | Randy Figueroa, | | | 2018 | Visit | Rehabilitation | [address] | | | | | | [place], | | | | | | [place] [address] | | | | | | [phone] | | | | | | | [...] | | | | | | [place] [address] | | | | | | [phone] | | | | | | | | +--------+ + + + + as of this encounter Visit Diagnoses Not on filein this encounter"
--- OUTSIDE RECORDS SUMMARY | ~2018-12-10 | XMS | Encounter Summary ---
Demographics + + + | Address | [address] | | | [place] [address] | + + + | Home Phone [...] | [place] | | | | | [address] | | + + + + + Care Team Providers + +------+ + | Care Flocculator Operator Name | Role | Phone | [...] | | | involving | [address] [place] | | | | | [place] | [place] | [place] | | | | | coronary | [address] | [address] | | | | | artery of | Phone: | Phone: | | | | | [place] heart | [phone] | [phone] | | | | | without | Fax: | Fax: | | | | | angina | [phone] | [phone] | | | | | pectoris | | | + + + + + + + Encounter Details +--------+---------+ + + + | Date | Type | Department | Care Team | Description | +--------+---------+ + + + | 09/30/ | Office | [facility] | Carolina Lindarisa, | Coronary artery | | 2019 | Visit | MED CTR CARDIAC | MD [address] | disease, angina | | | | REHABILITATION [address] [place], | presence | | | | [address] [place] | [place] [address] | unspecified, | | | | [place] [address] | [phone] | unspecified vessel | | | | [phone] | | or lesion type, | | [...] note may be different from the origin gaFletcher [facility] CARDIAC REHABILITATION [address] [place] [address] Cardiac Rehab 60 Day Review Date: 09/30/2018 Patient Information Patient Name: Bob Will Date of : 1955 Age: 62 y.o. Referring Provider: Randy Figueroa MD Encounter Diagnoses Code Name Primary? I25.10 Coronary 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, angina presence unspecified, unspecified vessel or lesi on type, unspecified whether [place] or transplanted heart Yes Z98.61 Post PTCA Cardiac Rehab Phase II Leon atment Plan Bob Will (Bob) is a 62 y.o. male with a history of coronary 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 post rec ent anterior wall [place], post PTCA and stents of the left main, LAD and LCx on 03/15/17, cardiac shock, left atrial appendage thrombus, pneumonitis and septic shock, and severe in-stent chery nosis, [place] in Sep 2017, episodes of VT and subsequent PTCA in Oct 2017, CHF, LVEF 35-40%, TIN CAN FEEDER -D placement in [facility] on 10/17/2017. He has recently increased [...] Healthy Dietary Education Date: 08/03/18 -Referral to Flame Hardening Machine Operator: Date: -DVD: Healthy Eating For Life Date: [...] exercise until stable. Date: Range: -Referral to Master Brewer Date: Education Points listed below- Date Completed: [...] | | | | | | [place] [address] | | | | | | [phone] | | | | | | | | +--------+ + + + + | 12/16/ | Office | Cardiac | Randy Figueroa, | | | 2018 | Visit | Rehabilitation | MD [address] | | | | | | [place], | | | | | | [place] [address] | | | | | | [phone] | | | | | | | | +--------+ + + + + | 12/21/ | Office | Cardiac | Randy Figueroa, | | | 2018 | Visit | Rehabilitation | MD [address] | | | | | | [place], | | | | | | [place] [address] | | | | | | [phone] | | | | | | | | +--------+ + + + + | 12/23/ | Office | Cardiac | Randy Figueroa, | | | 2018 | Visit | Rehabilitation | MD [address] | | | | | | [place], | | | | | | [place] [address] | | | | | | [phone] | | | | | | | | +--------+ + + + + | 12/28/ | Office | Cardiac | Randy Figueroa, | | | 2018 | Visit | Rehabilitation | MD [address] | | | | | | [place], | | | | | | [place] [address] | | | | | | [phone] | | | | | | | | +--------+ + + + + | 12/30/ | Office | Cardiac | Randy Figueroa, | | | 2018 | Visit | Rehabilitation | MD [address] | | | | | | [place], | | | | | | [place] [address] | | | | | | [phone] | | | | | | | | +--------+ + + + + | 01/04/ | Office | Cardiac | Randy Figueroa, | | | 2018 | Visit | Rehabilitation | MD [address] | | | | | | [place], | | | | | | [place] [address] | | | | | | [phone] | | | | | | | | +--------+ + + + + | 01/06/ | Office | Cardiac | Randy Figueroa, | | | 2018 | Visit | Rehabilitation | MD [address] | | | | | | [place], | | | | | | [place] [address] | | | | | | [phone] | | | | | | | | +--------+ + + + + | 01/11/ | Office | Cardiac | Randy Figueroa, | | | 2018 | Visit | Rehabilitation | MD [address] | | | | | | [place], | | | | | | [place] [address] | | | | | | [phone] | | | | | | | | +--------+ + + + + | 03/24/ | Procedure | Cardiology | | | | 2018 | visit | | | | +--------+ + + + + | 03/24/ | Office | Cardiology | Jenny, | | | 2018 | Visit | | [address] | | | | | | [place], | | | | | | [place] [address] | | | | | | [phone] | | | | | | | | +--------+ + + + + as of this encounter Visit Diagnoses + + | Diagnosis | + + | Coronary 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, angina presence unspecified, unspecified vessel or lesion | | type, unspecified whether [place] or transplanted heart - Primary | + + | Post PTCA | + + | Postsurgical percutaneous transluminal coronary angioplasty status | + +
--- OUTSIDE RECORDS SUMMARY | ~2018-12-10 | XMS | Encounter Summary ---
Demographics + + + | Address | [address] | | | [place] [address] | + + + | Home Phone [...] | [place] | | | | | [address] | | + + + + + Care Team Providers + +------+ + | Care Senior Support Analyst Name | Role | Phone | [...] | | | involving | [address] [place] | | | | | [place] | [place] | [place] | | | | | coronary | [address] | [address] | | | | | artery of | Phone: | Phone: | | | | | [place] heart | [phone] | [phone] | | | | | without | Fax: | Fax: | | | | | angina | [phone] | [phone] | | | | | pectoris | | | + + + + + + + Encounter Details +--------+---------+ + + + | Date | Type | Department | Care Team | Description | +--------+---------+ + + + | 09/14/ | Office | [facility] | Randy Figueroa, | Coronary artery | | 2019 | Visit | MED CTR CARDIAC | MD [address] | disease, angina | | | | REHABILITATION [address], | presence | | | | [address] [place] [place] | [place] [address] | unspecified, | | | | [place] [address] | [phone] | unspecified vessel | | | | [phone] | | or lesion type, | | | | | | unspecified whether | | | | | | [place] or | | | | | | [...] may be different from the origin msFletcher [facility] CARDIAC REHABILITATION [address] [place] [address] Cardiac Rehab Date: 09/14/2018 Patient Information Patient Name: Bob Will Date of : 1955 Age: 62 y.o. Encounter Diagnoses Code Name Primary? I25.10 Coronary 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, angina presence unspecified, unspecified vessel or lesi on type, unspecified whether [place] or transplanted heart Yes Z98.61 Post PTCA [...] Visit | Rehabilitation | MD [address] | | | | | | [place], | | | | | | [place] [address] | | | | | | [phone] | | | | | | | | +--------+ + + + + | 12/16/ | Office | Cardiac | Randy Figueroa, | | | 2018 | Visit | Rehabilitation | MD [address] | | | | | | [place], | | | | | | [place] [address] | | | | | | [phone] | | | | | | | | +--------+ + + + + | 12/21/ | Office | Cardiac | Randy Figueroa, | | | 2018 | Visit | Rehabilitation | MD [address] | | | | | | [place], | | | | | | [place] [address] | | | | | | [phone] | | | | | | | | +--------+ + + + + | 12/23/ | Office | Cardiac | Randy Figueroa, | | | 2018 | Visit | Rehabilitation | MD [address] | | | | | | [place], | | | | | | [place] [address] | | | | | | [phone] | | | | | | | | +--------+ + + + + | 12/28/ | Office | Cardiac | Randy Figueroa, | | | 2018 | Visit | Rehabilitation | MD [address] | | | | | | [place], | | | | | | [place] [address] | | | | | | [phone] | | | | | | | | +--------+ + + + + | 12/30/ | Office | Cardiac | Randy Figueroa, | | | 2018 | Visit | Rehabilitation | MD [address] | | | | | | [place], | | | | | | [place] [address] | | | | | | [phone] | | | | | | | | +--------+ + + + + | 01/04/ | Office | Cardiac | Randy Figueroa, | | | 2018 | Visit | Rehabilitation | MD [address] | | | | | | [place], | | | | | | [place] [address] | | | | | | [phone] | | | | | | | | +--------+ + + + + | 01/06/ | Office | Cardiac | Randy Figueroa, | | | 2018 | Visit | Rehabilitation | [address] | | | | | | [place], | | | | | | [place] [address] | | | | | | [phone] | | | | | | | | +--------+ + + + + | 01/11/ | Office | Cardiac | Randy Figueroa, | | | 2018 | Visit | Rehabilitation | MD [address] | | | | | | [place], | | | | | | [place] [address] | | | | | | [phone] | | | | | | | [...] [place], | | | | | | [place] [address] | | | | | | [phone] | | | | | | | | +--------+ + + + + as of this encounter Visit Diagnoses + + | Diagnosis | + + | Coronary 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, angina presence unspecified, unspecified vessel or lesion | | type, unspecified whether [place] or transplanted heart - Primary | + + | Post PTCA | + + | Postsurgical percutaneous transluminal coronary angioplasty status | + +"
--- OUTSIDE RECORDS SUMMARY | ~2018-12-10 | XMS | Encounter Summary ---
Demographics + + + | Address | [address] | | | [place] [address] | + + + | Home Phone [...] | [place] | | | | | [address] | | + + + + + Care Team Providers + +------+ + | Care Ip Attorney Name | Role | Phone | [...] | | | involving | [address] [facility] [place] | | | | | [place] | [place], [place] | [place] | | | | | coronary | [address] | [address] | | | | | artery of | Phone: | Phone: | | | | | [place] heart | [phone] | [phone] | | | | | without | Fax: | Fax: | | | | | angina | [phone] | [phone] | | | | | pectoris | | | + + + + + + + Encounter Details +--------+---------+ + + + | Date | Type | Department | Care Team | Description | +--------+---------+ + + + | 10/12/ | [facility] | Randy Figueroa, | Coronary artery | | 2019 | Visit | MED CTR CARDIAC | MD [address] [facility] | disease, angina | | | | REHABILITATION [address] [place], | presence | | | | [address] [facility] [place] | [place] [address] | unspecified, | | | | [place] [address] | [phone] | unspecified vessel | | | | [phone] | | or lesion type, | | | | | | unspecified whether | | | | | | [place] or | | | | | | [...] note may be different from the origin [facility] CTR CARDIAC REHABILITATION [address] [place] [address] Cardiac Rehab Date: 10/12/2018 Patient Information Patient Name: Bob Will Date of : 1955 Age: 62 y.o. Encounter Diagnoses Code Name Primary? I25.10 Coronary 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, angina presence unspecified, unspecified vessel or lesi on type, unspecified whether [place] or transplanted heart Yes Z98.61 Post PTCA [...] | | | | | | [place] [address] | | | | | | [phone] | | | | | | | | +--------+ + + + + | 12/16/ | Office | Cardiac | Randy Figueroa, | | | 2018 | Visit | Rehabilitation | MD [address] | | | | | | [place], | | | | | | [place] [address] | | | | | | [phone] | | | | | | | | +--------+ + + + + | 12/21/ | Office | Cardiac | Randy Figueroa, | | | 2018 | Visit | Rehabilitation | MD [address] | | | | | | [place], | | | | | | [place] [address] | | | | | | [phone] | | | | | | | | +--------+ + + + + | 12/23/ | Office | Cardiac | Randy Figueroa, | | | 2018 | Visit | Rehabilitation | MD [address] | | | | | | [place], | | | | | | [place] [address] | | | | | | [phone] | | | | | | | | +--------+ + + + + | 12/28/ | Office | Cardiac | Randy Figueroa, | | | 2018 | Visit | Rehabilitation | MD [address] | | | | | | [place], | | | | | | [place] [address] | | | | | | [phone] | | | | | | | | +--------+ + + + + | 12/30/ | Office | Cardiac | Randy Figueroa, | | | 2018 | Visit | Rehabilitation | MD [address] | | | | | | [place], | | | | | | [place] [address] | | | | | | [phone] | | | | | | | | +--------+ + + + + | 01/04/ | Office | Cardiac | Randy Figueroa, | | | 2018 | Visit | Rehabilitation | MD [address] | | | | | | [place], | | | | | | [place] [address] | | | | | | [phone] | | | | | | | | +--------+ + + + + | 01/06/ | Office | Cardiac | Randy Figueroa, | | | 2018 | Visit | Rehabilitation | MD [address] [facility] | | | | | | [place], | | | | | | [place] [address] | | | | | | [phone] | | | | | | | | +--------+ + + + + | 01/11/ | Office | Cardiac | Randy Figueroa, | | | 2018 | Visit | Rehabilitation | MD [address] [facility] | | | | | | [place], | | | | | | [place] [address] | | | | | | [phone] | | | | | | | | +--------+ + + + + | 03/24/ | Procedure | Cardiology | | | | 2018 | visit | | | | +--------+ + + + + | 03/24/ | Office | Cardiology | Jenny, | | | 2018 | Visit | | Hansa, LAWN MOWER OPERATOR [address] | | | | | | [place], | | | | | | [place] [address] | | | | | | [phone] | | | | | | | | +--------+ + + + + as of this encounter Visit Diagnoses + + | Diagnosis | + + | Coronary 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, angina presence unspecified, unspecified vessel or lesion | | type, unspecified whether [place] or transplanted heart - Primary | + + | Post PTCA | + + | Postsurgical percutaneous transluminal coronary angioplasty status | + +"
--- OUTSIDE RECORDS SUMMARY | ~2018-12-10 | XMS | Encounter Summary ---
Demographics + + + | Address | [address] | | | [place] [address] | + + + | Home Phone [...] | [place] | | | | | [address] | | + + + + + Care Team Providers + +------+ + | Care Health Promotion Manager Name | Role | Phone | [...] | | | involving | [address] [place] | | | | | [place] | [place] | [place] | | | | | coronary | [address] | [address] | | | | | artery of | Phone: | Phone: | | | | | [place] heart | [phone] | [phone] | | | | | without | Fax: | Fax: | | | | | angina | [phone] | [phone] | | | | | pectoris | | | + + + + + + + Encounter Details +--------+---------+ + + + | Date | Type | Department | Care Team | Description | +--------+---------+ + + + | 09/30/ | Office | [facility] | Carolina Lindarisa, | Coronary artery | | 2019 | Visit | MED CTR CARDIAC | MD [address] | disease, angina | | | | REHABILITATION [address], | presence | | | | [address] [place] | [place] [address] | unspecified, | | | | [place] [address] | [phone] | unspecified vessel | | | | [phone] | | or lesion type, | | | | | | unspecified whether | | | | | | [place] or | | | | | [...] note may be different from the origin orF[facility]ATION [address] [place] [address] Cardiac Rehab 60 Day Review Date: 09/30/2018 Patient Information Patient Name: Bob Will Date of : 1955 Age: 62 y.o. Referring Provider: Randy Figueroa MD Encounter Diagnoses Code Name Primary? I25.10 Coronary 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, angina presence unspecified, unspecified vessel or lesi on type, unspecified whether [place] or transplanted heart Yes Z98.61 Post PTCA Cardiac Rehab Phase II Leon atment Plan Bob Will (Bob) is a 62 y.o. 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 He has recently increased [...] Healthy Dietary Education Date: 08/03/18 -Referral to Cmv Driver: Date: -DVD: Healthy Eating For Life Date: [...] exercise until stable. Date: Range: -Referral to Clinical Laboratory Assistant Date: Education Points listed below- Date Completed: [...] | 12/14/ | Office | Cardiac | Ranyd Figueroa, | | | 2018 | Visit | Rehabilitation | MD Javid Crespo | | | | | | [place], | | | | | | [place] [address] | | | | | | [phone] | | | | | | | | +--------+ + + + + | 12/16/ | Office | Cardiac | Randy Figueroa, | | | 2018 | Visit | Rehabilitation | MD Javid Crespo | | | | | | [place], | | | | | | [place] [address] | | | | | | [phone] | | | | | | | | +--------+ + + + + | 12/21/ | Office | Cardiac | Randy Figueroa, | | | 2018 | Visit | Rehabilitation | MD [address] | | | | | | [place], | | | | | | [place] [address] | | | | | | [phone] | | | | | | | | +--------+ + + + + | 12/23/ | Office | Cardiac | Randy Figueroa, | | | 2018 | Visit | Rehabilitation | MD [address] | | | | | | [place], | | | | | | [place] [address] | | | | | | [phone] | | | | | | | | +--------+ + + + + | 12/28/ | Office | Cardiac | Randy Figueroa, | | | 2018 | Visit | Rehabilitation | MD [address] | | | | | | [place], | | | | | | [place] [address] | | | | | | [phone] | | | | | | | | +--------+ + + + + | 12/30/ | Office | Cardiac | Randy Figueroa, | | | 2018 | Visit | Rehabilitation | MD [address] | | | | | | [place], | | | | | | [place] [address] | | | | | | [phone] | | | | | | | | +--------+ + + + + | 01/04/ | Office | Cardiac | Randy Figueroa, | | | 2018 | Visit | Rehabilitation | MD [address] | | | | | | [place], | | | | | | [place] [address] | | | | | | [phone] | | | | | | | | +--------+ + + + + | 01/06/ | Office | Cardiac | Randy Figueroa, | | | 2018 | Visit | Rehabilitation | MD [address] | | | | | | [place], | | | | | | [place] [address] | | | | | | [phone] | | | | | | | | +--------+ + + + + | 01/11/ | Office | Cardiac | Randy Figueroa, | | | 2018 | Visit | Rehabilitation | MD Jav[address] | | | | | | [place], | | | | | | [place] [address] | | | | | | [phone] | | | | | | | | +--------+ + + + + | 03/24/ | Procedure | Cardiology | | | | 2018 | visit | | | | +--------+ + + + + | 03/24/ | Office | Cardiology | Jenny, | | | 2018 | Visit | | [address]SH [address] | | | | | | [place], | | | | | | [place] [address] | | | | | | [phone] | | | | | | | | +--------+ + + + + as of this encounter Visit Diagnoses + + | Diagnosis | + + | Coronary 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, angina presence unspecified, unspecified vessel or lesion | | type, unspecified whether [place] or transplanted heart - Primary | + + | Post PTCA | + + | Postsurgical percutaneous transluminal coronary angioplasty status | + +
--- OUTSIDE RECORDS SUMMARY | ~2018-12-10 | XMS | Encounter Summary ---
Demographics + + + | Address | [address] | | | [place] [address] | + + + | Home Phone [...] [place] | | | | | [address] | | + + + + + Care Team Providers + +------+ + | Care Middleware Consultant Name | Role | Phone | [...] + + | 10/07/ | Telephone | [facility] | Jenny, | Blood Pressure | | 2019 | | CARDIOLOGY [address] | [place], TRANSIT SURVEY WORKER [address] | | | | | [place], | [place], | | | | | [place] [address] | [place] [address] | | | | | [phone] | [phone] | | | | | | | [...] | | | | | | [place] [address] | | | | | | [phone] | | | | | | | | +--------+ + + + + | 12/16/ | Office | Cardiac | Randy Figueroa, | | | 2018 | Visit | Rehabilitation | MD Javid Cresp[address] | | | | | | [place], | | | | | | [place] [address] | | | | | | [phone] | | | | | | | | +--------+ + + + + | 12/21/ | Office | Cardiac | Randy Figueroa, | | | 2018 | Visit | Rehabilitation | MD Jav[address]resp[address] | | | | | | [place], | | | | | | [place] [address] | | | | | | [phone] | | | | | | | | +--------+ + + + + | 12/23/ | Office | Cardiac | Randy Figueroa, | | | 2018 | Visit | Rehabilitation | MD [address] [place] | | | | | | [place], | | | | | | [place] [address] | | | | | | [phone] | | | | | | | | +--------+ + + + + | 12/28/ | Office | Cardiac | Randy Figueroa, | | | 2018 | Visit | Rehabilitation | MD [address] [place] | | | | | | [place], | | | | | | [place] [address] | | | | | | [phone] | | | | | | | | +--------+ + + + + | 12/30/ | Office | Cardiac | Randy Figueroa, | | | 2018 | Visit | Rehabilitation | MD [address] [place] | | | | | | [place], | | | | | | [place] [address] | | | | | | [phone] | | | | | | | | +--------+ + + + + | 01/04/ | Office | Cardiac | Randy Figueroa, | | | 2018 | Visit | Rehabilitation | MD [address] [place] | | | | | | [place], | | | | | | [place] [address] | | | | | | [phone] | | | | | | | | +--------+ + + + + | 01/06/ | Office | Cardiac | Randy Figueroa, | | | 2018 | Visit | Rehabilitation | MD [address] [place] | | | | | | [place], | | | | | | [place] [address] | | | | | | [phone] | | | | | | | | +--------+ + + + + | 01/11/ | Office | Cardiac | Randy Figueroa, | | | 2018 | Visit | Rehabilitation | MD [address] [place] | | | | | | [place], | | | | | | [place] [address] | | | | | | [phone] | | | | | | | [...] | | | | | | [place] [address] | | | | | | [phone] | | | | | | | | +--------+ + + + + as of this encounter Visit Diagnoses Not on filein this encounter"
--- OUTSIDE RECORDS SUMMARY | ~2018-12-10 | XMS | Encounter Summary ---
Demographics + + + | Address | [address] | | | [place] [address] | + + + | Home Phone [...] [place] | | | | | [address] | | + + + + + Care Team Providers + +------+ + | Care Blue Print Control Clerk Name | Role | Phone | [...] Monitor | CARDIOLOGY [address] | [address] [place] | Interrogation | | | | [place], | [place], | (Primary Dx); TRAUMA REGISTRAR-D | | | | [place] [address] | [place] [address] | (AICD) [employer] | | | | [phone] | [phone] | 10/16/17 [facility]; | | | | | [...] | | | | | | [place] [address] | | | | | | [phone] | | | | | | | | +--------+ + + + + | 12/16/ | Office | Cardiac | Randy Figueroa, | | | 2018 | Visit | Rehabilitation | MD Javid Crespo | | | | | | [place], | | | | | | [place] [address] | | | | | | [phone] | | | | | | | | +--------+ + + + + | 12/21/ | Office | Cardiac | Randy Figueroa, | | | 2018 | Visit | Rehabilitation | MD Javid [address]resp[address] | | | | | | [place], | | | | | | [place] [address] | | | | | | [phone] | | | | | | | | +--------+ + + + + | 12/23/ | Office | Cardiac | Randy Figueroa, | | | 2018 | Visit | Rehabilitation | MD [address] [place] | | | | | | [place], | | | | | | [place] [address] | | | | | | [phone] | | | | | | | | +--------+ + + + + | 12/28/ | Office | Cardiac | Randy Figueroa, | | | 2018 | Visit | Rehabilitation | MD [address] [place] | | | | | | [place], | | | | | | [place] [address] | | | | | | [phone] | | | | | | | | +--------+ + + + + | 12/30/ | Office | Cardiac | Randy Figueroa, | | 2018 | Visit | Rehabilitation | MD [address] [place] | | | | | | [place], | | | | | | [place] [address] | | | | | | [phone] | | | | | | | | +--------+ + + + + | 01/04/ | Office | Cardiac | Randy Figueroa, | | | 2018 | Visit | Rehabilitation | MD [address] [place] | | | | | | [place], | | | | | | [place] [address] | | | | | | [phone] | | | | | | | | +--------+ + + + + | 01/06/ | Office | Cardiac | Randy Figueroa, | | | 2018 | Visit | Rehabilitation | MD [address] [place] | | | | | | [place], | | | | | | [place] [address] | | | | | | [phone] | | | | | | | | +--------+ + + + + | 01/11/ | Office | Cardiac | Randy Figueroa, | | | 2018 | Visit | Rehabilitation | MD [address] [place] | | | | | | [place], | | | | | | [place] [address] | | | | | | [phone] | | | | | | | | +--------+ + + + + | 03/24/ | Procedure | Cardiology | | | | 2018 | visit | | | | +--------+ + + + + | 03/24/ | Office | Cardiology | Jenny, | | | 2018 | Visit | | ADARSH [address] | | | | | | [place], | | | | | | [place] [address] | | | | | | [phone] | | | | | | | [...] | e | 2359 PDT | Interrogation TRAUMA REGISTRAR-D | procedure are in the | | REMOTE | | | ([facility]) [employer] | results section. | [...] remote PDF scanned into | | | [facility] for remote interrogation results. Data collected [...] + + | Performing | Address | City/State/[facility] | Phone Number | | Organization | | | | + +---------+ + + | [facility] | | | | + +---------+ + + in this encounter Visit Diagnoses + + | Diagnosis | + + | Remote Device Interrogation - Primary | + + | Fitting and adjustment of automatic implantable cardiac defibrillator | + + | TRAUMA REGISTRAR-D (GABBI) [employer] 10/16/17 EULOGIO Darby | + + | Ischemic cardiomyopathy | + + | Other specified forms of chronic ischemic heart disease | + +"
--- OUTSIDE RECORDS SUMMARY | ~2018-12-10 | XMS | Encounter Summary ---
Demographics + + + | Address | [address] | | | [place] [address] | + + + | Home Phone [...] [place] | | | | | [address] | | + + + + + Care Team Providers + +------+ + | Care Mooner Name | Role | Phone | + [...] + | 10/27/ | Telephone | [facility] | Jenny, | Other (medication | | 2018 | | CARDIOLOGY [address] | ADARSH [address] | issue) | | | | [place], | [place], | | | | | [place] [address] | [place] [address] | | | | | [phone] | [phone] | | | | | | | [...] | | | | | | [place] [address] | | | | | | [phone] | | | | | | | | +--------+ + + + + | 12/16/ | Office | Cardiac | Randy Figueroa, | | | 2018 | Visit | Rehabilitation | MD Javid Crespo | | | | | | [place], | | | | | | [place] [address] | | | | | | [phone] | | | | | | | | +--------+ + + + + | 12/21/ | Office | Cardiac | Randy Figueroa, | | | 2018 | Visit | Rehabilitation | MD Javid Crespo | | | | | | [place], | | | | | | [place] [address] | | | | | | [phone] | | | | | | | | +--------+ + + + + | 12/23/ | Office | Cardiac | Randy Figueroa, | | | 2018 | Visit | Rehabilitation | MD [address] [place] | | | | | | [place], | | | | | | [place] [address] | | | | | | [phone] | | | | | | | | +--------+ + + + + | 12/28/ | Office | Cardiac | Randy Figueroa, | | | 2018 | Visit | Rehabilitation | MD [address] [place] | | | | | | [place], | | | | | | [place] [address] | | | | | | [phone] | | | | | | | | +--------+ + + + + | 12/30/ | Office | Cardiac | Randy Figueroa, | | | 2018 | Visit | Rehabilitation | MD [address] [place] | | | | | | [place], | | | | | | [place] [address] | | | | | | [phone] | | | | | | | | +--------+ + + + + | 01/04/ | Office | Cardiac | Randy Figueroa, | | | 2018 | Visit | Rehabilitation | MD [address] [place] | | | | | | [place], | | | | | | [place] [address] | | | | | | [phone] | | | | | | | | +--------+ + + + + | 01/06/ | Office | Cardiac | Randy Figueroa, | | | 2018 | Visit | Rehabilitation | MD [address] [place] | | | | | | [place], | | | | | | [place] [address] | | | | | | [phone] | | | | | | | | +--------+ + + + + | 01/11/ | Office | Cardiac | Randy Figueroa, | | | 2018 | Visit | Rehabilitation | MD [address] [place] | | | | | | [place], | | | | | | [place] [address] | | | | | | [phone] | | | | | | | [...] [place], | | | | | | [place] [address] | | | | | | [phone] | | | | | | | [...]
--- OUTSIDE RECORDS SUMMARY | ~2018-12-10 | XMS | Encounter Summary ---
Demographics + + + | Address | [address] | | | [place] [address] | + + + | Home Phone [...] | [place] | | | | | [address] | | + + + + + Care Team Providers + +------+ + | Care Dentures Lab Technician Name | Role | Phone [...] | | | involving | [address] [place] | | | | | nikolai | [place] | [place] | | | | | coronary | [address] | [address] | | | | | artery of | Phone: | Phone: | | | | | nikolai heart | [phone] | [phone] | | | | | without | Fax: | Fax: | | | | | angina | [phone] | [phone] | | | | | pectoris | | | + + + + + + + Encounter Details +--------+---------+ + + + | Date | Type | Department | Care Team | Description | +--------+---------+ + + + | 12/07/ | Office | [facility] | Randy Figueroa, | Coronary artery | | 2019 | Visit | MED CTR CARDIAC | MD [address] | disease involving | | | | REHABILITATION [address] [place], | nikolai coronary | | | | [address] [place] | [place] [address] | artery of nikolai | | | | [place] [address] | [phone] | heart without angina | | | | [phone] | | pectoris (Primary | | | [...] different from the origin al. [facility] MED CTR CARDIAC REHABILITATION [address] [place] [address] Cardiac Rehab Date: 12/07/2018 Patient Information Patient Name: Bob Will Date of : 1955 Age: 63 y.o. Encounter Diagnoses Code Name Primary? I25.10 Coronary 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 involving nikolai coronary artery of nikolai heart without angina pectoris Yes Z98.61 Post [...] Visit | Rehabilitation | MD [address] | | | | | | [place], | | | | | | [place] [address] | | | | | | [phone] | | | | | | | | +--------+ + + + + | 12/16/ | Office | Cardiac | Randy Figueroa, | | | 2018 | Visit | Rehabilitation | MD [address] [place] | | | | | | [place], | | | | | | [place] [address] | | | | | | [phone] | | | | | | | | +--------+ + + + + | 12/21/ | Office | Cardiac | Randy Figueroa, | | | 2018 | Visit | Rehabilitation | MD [address] [place] | | | | | | [place], | | | | | | [place] [address] | | | | | | [phone] | | | | | | | | +--------+ + + + + | 12/23/ | Office | Cardiac | Randy Figueroa, | | | 2018 | Visit | Rehabilitation | MD [address] [place] | | | | | | [place], | | | | | | [place] [address] | | | | | | [phone] | | | | | | | | +--------+ + + + + | 12/28/ | Office | Cardiac | Randy Figueroa, | | | 2018 | Visit | Rehabilitation | MD [address] [place] | | | | | | [place], | | | | | | [place] [address] | | | | | | [phone] | | | | | | | | +--------+ + + + + | 12/30/ | Office | Cardiac | Randy Figueroa, | | | 2018 | Visit | Rehabilitation | MD [address] [place] | | | | | | [place], | | | | | | [place] [address] | | | | | | [phone] | | | | | | | | +--------+ + + + + | 01/04/ | Office | Cardiac | Randy Figueroa, | | | 2018 | Visit | Rehabilitation | MD [address] | | | | | | [place], | | | | | | [place] [address] | | | | | | [phone] | | | | | | | | +--------+ + + + + | 01/06/ | Office | Cardiac | Randy Figueroa, | | | 2018 | Visit | Rehabilitation | MD Javid Crespo | | | | | | [place], | | | | | | [place] [address] | | | | | | [phone] | | | | | | | | +--------+ + + + + | 01/11/ | Office | Cardiac | Randy Figueroa, | | | 2018 | Visit | Rehabilitation | MD Javid Crespo | | | | | | [place], | | | | | | [place] [address] | | | | | | [phone] | | | | | | | | +--------+ + + + + | 03/24/ | Procedure | Cardiology | | | | 2018 | visit | | | | +--------+ + + + + | 03/24/ | Office | Cardiology | Jenny, | | | 2018 | Visit | | HansaADARSH [address] | | | | | | [place], | | | | | | [place] [address] | | | | | | [phone] | | | | | | | | +--------+ + + + + as of this encounter Visit Diagnoses + + | Diagnosis | + + | Coronary 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 involving nikolai coronary artery of nikolai heart without | | angina pectoris - Primary | + + | Post PTCA | + + | Postsurgical percutaneous transluminal coronary angioplasty status | + +"
--- OUTSIDE RECORDS SUMMARY | ~2018-12-10 | XMS | Encounter Summary ---
Demographics + + + | Address | [address] | | | [place] [address] | + + + | Home Phone [...] [place] | | | | | [address] | | + + + + + Care Team Providers + +------+ + | Care Electronic Security Technician Name | Role | Phone | [...] + | 10/27/ | Telephone | [facility] | Jenny, | Other (medication | | 2018 | | CARDIOLOGY [address] | ADARSH Santo [address] | issue) | | | | [place], | [place], | | | | | [place] [address] | [place] [address] | | | | | [phone] | [phone] | | | | | | | [...] | | | | | | [place] [address] | | | | | | [phone] | | | | | | | | +--------+ + + + + | 12/16/ | Office | Cardiac | Randy Figueroa, | | | 2018 | Visit | Rehabilitation | MD Jav[address] Crespo | | | | | | [place], | | | | | | [place] [address] | | | | | | [phone] | | | | | | | | +--------+ + + + + | 12/21/ | Office | Cardiac | Randy Figueroa, | | | 2018 | Visit | Rehabilitation | MD Jav[address] Crespo | | | | | | [place], | | | | | | [place] [address] | | | | | | [phone] | | | | | | | | +--------+ + + + + | 12/23/ | Office | Cardiac | Randy Figueroa, | | | 2018 | Visit | Rehabilitation | MD [address] [place] | | | | | | [place], | | | | | | [place] [address] | | | | | | [phone] | | | | | | | | +--------+ + + + + | 12/28/ | Office | Cardiac | Randy Figueroa, | | | 2018 | Visit | Rehabilitation | MD [address] [place] | | | | | | [place], | | | | | | [place] [address] | | | | | | [phone] | | | | | | | | +--------+ + + + + | 12/30/ | Office | Cardiac | Randy Figueroa, | | | 2018 | Visit | Rehabilitation | MD [address] [place] | | | | | | [place], | | | | | | [place] [address] | | | | | | [phone] | | | | | | | | +--------+ + + + + | 01/04/ | Office | Cardiac | Randy Figueroa, | | | 2018 | Visit | Rehabilitation | MD [address] [place] | | | | | | [place], | | | | | | [place] [address] | | | | | | [phone] | | | | | | | | +--------+ + + + + | 01/06/ | Office | Cardiac | Randy Figueroa, | | | 2018 | Visit | Rehabilitation | MD [address] [place] | | | | | | [place], | | | | | | [place] [address] | | | | | | [phone] | | | | | | | | +--------+ + + + + | 01/11/ | Office | Cardiac | Randy Figueroa, | | | 2018 | Visit | Rehabilitation | MD [address] [place] | | | | | | [place], | | | | | | [place] [address] | | | | | | [phone] | | | | | | | [...] | | | | | | [place] [address] | | | | | | [phone] | | | | | | | [...]
--- OUTSIDE RECORDS SUMMARY | ~2018-12-10 | XMS | Encounter Summary ---
Demographics + + + | Address | [address] | | | [place] [address] | + + + | Home Phone [...] [place] | | | | | [address] | | + + + + + Care Team Providers + +------+ + | Care Field Crop Technical Officer Name | Role | Phone | [...] | 12/06/ | Refill | [facility] [place] | Jenny, | Medication Refill | | 2018 | | CARDIOLOGY [address] | ADARSH Santo [address] | | | | | [place], | [place], | | | | | [place] [address] | [place] [address] | | | | | [phone] | [phone] | | | | | | | [...] | | | | | | [place] [address] | | | | | | [phone] | | | | | | | | +--------+ + + + + | 12/16/ | Office | Cardiac | Randy Figueroa, | | | 2018 | Visit | Rehabilitation | MD Javid Crespo | | | | | | [place], | | | | | | [place] [address] | | | | | | [phone] | | | | | | | | +--------+ + + + + | 12/21/ | Office | Cardiac | Randy Figueroa, | | | 2018 | Visit | Rehabilitation | MD Javid Crespo | | | | | | [place], | | | | | | [place] [address] | | | | | | [phone] | | | | | | | | +--------+ + + + + | 12/23/ | Office | Cardiac | Randy Figueroa, | | | 2018 | Visit | Rehabilitation | MD [address] [place] | | | | | | [place], | | | | | | [place] [address] | | | | | | [phone] | | | | | | | | +--------+ + + + + | 12/28/ | Office | Cardiac | Randy Figueroa, | | | 2018 | Visit | Rehabilitation | MD [address] [place] | | | | | | [place], | | | | | | [place] [address] | | | | | | [phone] | | | | | | | | +--------+ + + + + | 12/30/ | Office | Cardiac | Randy Figueroa, | | | 2018 | Visit | Rehabilitation | MD [address] [place] | | | | | | [place], | | | | | | [place] [address] | | | | | | [phone] | | | | | | | | +--------+ + + + + | 01/04/ | Office | Cardiac | Randy Figueroa, | | | 2018 | Visit | Rehabilitation | MD [address] [place] | | | | | | [place], | | | | | | [place] [address] | | | | | | [phone] | | | | | | | | +--------+ + + + + | 01/06/ | Office | Cardiac | Randy Figueroa, | | | 2018 | Visit | Rehabilitation | MD [address] [place] | | | | | | [place], | | | | | | [place] [address] | | | | | | [phone] | | | | | | | | +--------+ + + + + | 01/11/ | Office | Cardiac | Randy Figueroa, | | | 2018 | Visit | Rehabilitation | MD [address] [place] | | | | | | [place], | | | | | | [place] [address] | | | | | | [phone] | | | | | | | [...] | | | | | | [place] [address] | | | | | | [phone] | | | | | | | | +--------+ + + + + as of this encounter Visit Diagnoses Not on filein this encounter"
--- OUTSIDE RECORDS SUMMARY | ~2018-12-10 | XMS | Encounter Summary ---
Demographics + + + | Address | [address] | | | [place] [address] | + + + | Home Phone [...] | [place] | | | | | [address] | | + + + + + Care Team Providers + +------+ + | Care Mixed Crop Farmer Name | Role | Phone | + [...] | | | involving | [address] [place] | | | | | [place] | [place] | [place] | | | | | coronary | [address] | [address] | | | | | artery of | Phone: | Phone: | | | | | [place] heart | [phone] | [phone] | | | | | without | Fax: | Fax: | | | | | angina | [phone] | [phone] | | | | | pectoris | | | + + + + + + + Encounter Details +--------+---------+ + + + | Date | Type | Department | Care Team | Description | +--------+---------+ + + + | 10/07/ | Office | [facility] | Carolina Lindarisa, | Coronary artery | | 2019 | Visit | MED CTR CARDIAC | MD [address] | disease, angina | | | | REHABILITATION [address] [place], | presence | | | | [address] [place] | [place] [address] | unspecified, | | | | [place] [address] | [phone] | unspecified vessel | | | | [phone] | | or lesion type, | | | | | | unspecified whether | | | | | | [place] or | | | | | | [...] may be different from the origin [facility]letcher [facility] CARDIAC [facility]HABIL[facility]ATION [address] [place] [address] Cardiac Rehab 60 Day Review Date: 10/07/2018 Patient Information Patient Name: Bob Will Date of : 1955 Age: 62 y.o. Referring Provider: Randy Figueroa MD Encounter Diagnoses Code Name Primary? 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 He has recently increased his [...] control. Also began walking with his around [place] 3 days a week along with chasing [...] Healthy Dietary Education Date: 08/03/18 -Referral to Risk Analyst: Date: -DVD: Healthy Eating For Life Date: [...] exercise until stable. Date: Range: -Referral to Bus Person Dishwasher Date: Education Points listed below- Date Completed: [...] Visit | Rehabilitation | MD [address] | | | | | | [place], | | | | | | [place] [address] | | | | | | [phone] | | | | | | | | +--------+ + + + + | 12/16/ | Office | Cardiac | Randy Figueroa, | | | 2018 | Visit | Rehabilitation | MD [address] | | | | | | [place], | | | | | | [place] [address] | | | | | | [phone] | | | | | | | | +--------+ + + + + | 12/21/ | Office | Cardiac | Randy Figueroa, | | | 2018 | Visit | Rehabilitation | MD [address] | | | | | | [place], | | | | | | [place] [address] | | | | | | [phone] | | | | | | | | +--------+ + + + + | 12/23/ | Office | Cardiac | Randy Figueroa, | | | 2018 | Visit | Rehabilitation | MD [address] | | | | | | [place], | | | | | | [place] [address] | | | | | | [phone] | | | | | | | | +--------+ + + + + | 12/28/ | Office | Cardiac | Randy Figueroa, | | | 2018 | Visit | Rehabilitation | MD [address] | | | | | | [place], | | | | | | [place] [address] | | | | | | [phone] | | | | | | | | +--------+ + + + + | 12/30/ | Office | Cardiac | Randy Figueroa, | | | 2018 | Visit | Rehabilitation | MD [address] | | | | | | [place], | | | | | | [place] [address] | | | | | | [phone] | | | | | | | | +--------+ + + + + | 01/04/ | Office | Cardiac | Randy Figueroa, | | | 2018 | Visit | Rehabilitation | MD [address] | | | | | | [place], | | | | | | [place] [address] | | | | | | [phone] | | | | | | | | +--------+ + + + + | 01/06/ | Office | Cardiac | Randy Figueroa, | | | 2018 | Visit | Rehabilitation | MD [address] | | | | | | [place], | | | | | | [place] [address] | | | | | | [phone] | | | | | | | | +--------+ + + + + | 01/11/ | Office | Cardiac | Randy Figueroa, | | | 2018 | Visit | Rehabilitation | MD [address] | | | | | | [place], | | | | | | [place] [address] | | | | | | [phone] | | | | | | | | +--------+ + + + + | 03/24/ | Procedure | Cardiology | | | | 2018 | visit | | | | +--------+ + + + + | 03/24/ | Office | Cardiology | Jenny, | | | 2018 | Visit | | ADARSH Santo [address] | | | | | | [place], | | | | | | [place] [address] | | | | | | [phone] | | | | | | | | +--------+ + + + + as of this encounter Visit Diagnoses + + | Diagnosis | + + | Coronary 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, angina presence unspecified, unspecified vessel or lesion | | type, unspecified whether [place] or transplanted heart - Primary | + + | Post PTCA | + + | Postsurgical percutaneous transluminal coronary angioplasty status | + +
--- OUTSIDE RECORDS SUMMARY | ~2018-12-10 | XMS | Encounter Summary ---
Demographics + + + | Address | [address] | | | [place] [address] | + + + | Home Phone [...] [place] | | | | | [address] | | + + + + + Care Team Providers + +------+ + | Care Operations And Intelligence Assistant Name | Role | Phone | [...] Monitor | CARDIOLOGY [address] | [address] [place] | Interrogation | | | | [place], | [place], | (Primary Dx); MANAGER LOGISTIC-D | | | | [place] [address] | [place] [address] | (AICD) [employer] | | | | [phone] | [phone] | 10/16/17 [facility]; | | [...] | | | | | | [place] [address] | | | | | | [phone] | | | | | | | | +--------+ + + + + | 12/16/ | Office | Cardiac | Randy Figueroa, | | | 2018 | Visit | Rehabilitation | MD Javid Crespo | | | | | | [place], | | | | | | [place] [address] | | | | | | [phone] | | | | | | | | +--------+ + + + + | 12/21/ | Office | Cardiac | Randy Figueroa, | | | 2018 | Visit | Rehabilitation | MD Javid Crespo | | | | | | [place], | | | | | | [place] [address] | | | | | | [phone] | | | | | | | | +--------+ + + + + | 12/23/ | Office | Cardiac | Randy Figueroa, | | | 2018 | Visit | Rehabilitation | MD [address] [place] | | | | | | [place], | | | | | | [place] [address] | | | | | | [phone] | | | | | | | | +--------+ + + + + | 12/28/ | Office | Cardiac | Randy Figueroa, | | | 2018 | Visit | Rehabilitation | MD [address] | | | | | | [place], | | | | | | [place] [address] | | | | | | [phone] | | | | | | | | +--------+ + + + + | 12/30/ | Office | Cardiac | Randy Figueroa, | | 2018 | Visit | Rehabilitation | MD [address] [place] | | | | | | [place], | | | | | | [place] [address] | | | | | | [phone] | | | | | | | | +--------+ + + + + | 01/04/ | Office | Cardiac | Randy Figueroa, | | | 2018 | Visit | Rehabilitation | MD [address] [place] | | | | | | [place], | | | | | | [place] [address] | | | | | | [phone] | | | | | | | | +--------+ + + + + | 01/06/ | Office | Cardiac | Randy Figueroa, | | | 2018 | Visit | Rehabilitation | MD [address] [place] | | | | | | [place], | | | | | | [place] [address] | | | | | | [phone] | | | | | | | | +--------+ + + + + | 01/11/ | Office | Cardiac | Randy Figueroa, | | | 2018 | Visit | Rehabilitation | MD [address] [place] | | | | | | [place], | | | | | | [place] [address] | | | | | | [phone] | | | | | | | | +--------+ + + + + | 03/24/ | Procedure | Cardiology | | | | 2018 | visit | | | | +--------+ + + + + | 03/24/ | Office | Cardiology | Jenny, | | | 2018 | Visit | | ADARSH Santo [address] | | | | | | [place], | | | | | | [place] [address] | | | | | | [phone] | | | | | | | [...] | e | 2359 PDT | Interrogation MANAGER LOGISTIC-D | procedure are in the | | REMOTE | | | ([facility]) [employer] | results section. | [...] remote PDF scanned into | | | [facility] for remote interrogation results. Data collected [...] implantable cardiac defibrillator | + + | MANAGER LOGISTIC-D (GABBI) [employer] 10/16/17 EULOGIO Darby | + + | Ischemic cardiomyopathy | + + | Other specified forms of chronic ischemic heart disease | + +"
--- OUTSIDE RECORDS SUMMARY | ~2018-12-10 | XMS | Encounter Summary ---
Demographics + + + | Address | [address] | | | [place] [address] | + + + | Home Phone [...] | [place] | | | | | [address] | | + + + + + Care Team Providers + +------+ + | Care Cloth Measurer Name | Role | Phone | + [...] | | | involving | [address] [place] | | | | | [place] | [place] | [place] | | | | | coronary | [address] | [address] | | | | | artery of | Phone: | Phone: | | | | | [place] heart | [phone] | [phone] | | | | | without | Fax: | Fax: | | | | | angina | [phone] | [phone] | | | | | pectoris | | | + + + + + + + Encounter Details +--------+---------+ + + + | Date | Type | Department | Care Team | Description | +--------+---------+ + + + | 09/28/ | Office | [facility] | Randy Figueroa, | Coronary artery | | 2019 | Visit | MED CTR CARDIAC | MD [address] | disease, angina | | | | REHABILITATION [address] [place], | presence | | | | [address] [place] | [place] [address] | unspecified, | | | | [place] [address] | [phone] | unspecified vessel | | | | [phone] | | or lesion type, | | | | | | unspecified whether | | | | | | [place] or | | | | | | [...] + as of this encounter Progress Notes Gale Woo - 09/28/2018 1000 PSTFormatting of this note may be different from the origin neFletcher [facility] CARDIAC REHABILITATION [address] [place] [address] Cardiac Rehab Date: 09/28/2018 Patient Information Patient Name: Bob Will Date of : 1955 Age: 62 y.o. Encounter Diagnoses Code Name Primary? I25.10 Coronary 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, angina presence unspecified, unspecified vessel or lesi on type, unspecified whether [place] or transplanted heart Yes Z98.61 Post PTCA [...] Visit | Rehabilitation | MD [address] | | | | | | [place], | | | | | | [place] [address] | | | | | | [phone] | | | | | | | | +--------+ + + + + | 12/16/ | Office | Cardiac | Randy Figueroa, | | | 2018 | Visit | Rehabilitation | MD [address] | | | | | | [place], | | | | | | [place] [address] | | | | | | [phone] | | | | | | | | +--------+ + + + + | 12/21/ | Office | Cardiac | Randy Figueroa, | | | 2018 | Visit | Rehabilitation | MD [address] | | | | | | [place], | | | | | | [place] [address] | | | | | | [phone] | | | | | | | | +--------+ + + + + | 12/23/ | Office | Cardiac | Randy Figueroa, | | | 2018 | Visit | Rehabilitation | MD [address] | | | | | | [place], | | | | | | [place] [address] | | | | | | [phone] | | | | | | | | +--------+ + + + + | 12/28/ | Office | Cardiac | Randy Figueroa, | | | 2018 | Visit | Rehabilitation | MD [address] | | | | | | [place], | | | | | | [place] [address] | | | | | | [phone] | | | | | | | | +--------+ + + + + | 12/30/ | Office | Cardiac | Randy Figueroa, | | | 2018 | Visit | Rehabilitation | MD [address] | | | | | | [place], | | | | | | [place] [address] | | | | | | [phone] | | | | | | | | +--------+ + + + + | 01/04/ | Office | Cardiac | Randy Figueroa, | | | 2018 | Visit | Rehabilitation | MD [address] | | | | | | [place], | | | | | | [place] [address] | | | | | | [phone] | | | | | | | | +--------+ + + + + | 01/06/ | Office | Cardiac | Randy Figueroa, | | | 2018 | Visit | Rehabilitation | [address] | | | | | | [place], | | | | | | [place] [address] | | | | | | [phone] | | | | | | | | +--------+ + + + + | 01/11/ | Office | Cardiac | Randy Figueroa, | | | 2018 | Visit | Rehabilitation | MD [address] | | | | | | [place], | | | | | | [place] [address] | | | | | | [phone] | | | | | | | | +--------+ + + + + | 03/24/ | Procedure | Cardiology | | | | 2018 | visit | | | | +--------+ + + + + | 03/24/ | Office | Cardiology | Jenny, | | | 2018 | Visit | | ADARSH Santo [address] | | | | | | [place], | | | | | | [place] [address] | | | | | | [phone] | | | | | | | | +--------+ + + + + as of this encounter Visit Diagnoses + + | Diagnosis | + + | Coronary 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, angina presence unspecified, unspecified vessel or lesion | | type, unspecified whether [place] or transplanted heart - Primary | + + | Post PTCA | + + | Postsurgical percutaneous transluminal coronary angioplasty status | + +"
--- OUTSIDE RECORDS SUMMARY | ~2018-12-10 | XMS | Encounter Summary ---
Demographics + + + | Address | [address] | | | [place] [address] | + + + | Home Phone [...] | [place] | | | | | [address] | | + + + + + Care Team Providers + +------+ + | Care Day Care Worker Name | Role | Phone | [...] | | | involving | [address] | [place] | | | | | [place] | [place] | [place] | | | | | coronary | [address] | [address] | | | | | artery of | Phone: | Phone: | | | | | [place] heart | [phone] | [phone] | | | | | without | Fax: | Fax: | | | | | angina | [phone] | [phone] | | | | | pectoris | | | + + + + + + + Encounter Details +--------+---------+ + + + | Date | Type | Department | Care Team | Description | +--------+---------+ + + + | 12/07/ | Office | [facility] | Randy Figueroa, | Coronary artery | | 2019 | Visit | MED CTR CARDIAC | MD [address] [place] | disease involving | | | | REHABILITATION [address] [place], | [place] coronary | | | | [place] | [place] [address] | artery of [place] | | | | [place] [address] | [phone] | heart without angina | | | | [phone] | | pectoris (Primary | | | [...] be different from the origin al. [facility] MED CTR CARDIAC REHABILITATION [address] [place] [address] Cardiac Rehab Date: 12/07/2018 Patient Information Patient [...] Visit | Rehabilitation | MD [address] [place] | | | | | | [place], | | | | | | [place] [address] | | | | | | [phone] | | | | | | | | +--------+ + + + + | 12/16/ | Office | Cardiac | Randy Figueroa, | | | 2018 | Visit | Rehabilitation | MD [address] [place] | | | | | | [place], | | | | | | [place] [address] | | | | | | [phone] | | | | | | | | +--------+ + + + + | 12/21/ | Office | Cardiac | Randy Figueroa, | | | 2018 | Visit | Rehabilitation | MD [address] [place] | | | | | | [place], | | | | | | [place] [address] | | | | | | [phone] | | | | | | | | +--------+ + + + + | 12/23/ | Office | Cardiac | Randy Figueroa, | | | 2018 | Visit | Rehabilitation | MD [address] [place] | | | | | | [place], | | | | | | [place] [address] | | | | | | [phone] | | | | | | | | +--------+ + + + + | 12/28/ | Office | Cardiac | Randy Figueroa, | | | 2018 | Visit | Rehabilitation | MD [address] [place] | | | | | | [place], | | | | | | [place] [address] | | | | | | [phone] | | | | | | | | +--------+ + + + + | 12/30/ | Office | Cardiac | Randy Figueroa, | | | 2018 | Visit | Rehabilitation | MD [address] [place] | | | | | | [place], | | | | | | [place] [address] | | | | | | [phone] | | | | | | | | +--------+ + + + + | 01/04/ | Office | Cardiac | Randy Figueroa, | | | 2018 | Visit | Rehabilitation | MD [address] | | | | | | [place], | | | | | | [place] [address] | | | | | | [phone] | | | | | | | | +--------+ + + + + | 01/06/ | Office | Cardiac | Randy Figueroa, | | | 2018 | Visit | Rehabilitation | MD [address] | | | | | | [place], | | | | | | [place] [address] | | | | | | [phone] | | | | | | | | +--------+ + + + + | 01/11/ | Office | Cardiac | Randy Figueroa, | | | 2018 | Visit | Rehabilitation | MD [address] | | | | | | [place], | | | | | | [place] [address] | | | | | | [phone] | | | | | | | | +--------+ + + + + | 03/24/ | Procedure | Cardiology | | | | 2018 | visit | | | | +--------+ + + + + | 03/24/ | Office | Cardiology | Jenny, | | | 2018 | Visit | | HansaADARSH [address] | | | | | | [place], | | | | | | [place] [address] | | | | | | [phone] | | | | | | | [...]
--- OUTSIDE RECORDS SUMMARY | ~2018-12-10 | XMS | Encounter Summary ---
Demographics + + + | Address | [address] | | | [place] [address] | + + + | Home Phone [...] [place] | | | | | [address] | | + + + + + Care Team Providers + +------+ + | Care Ironworker Machine Operator Name | Role | Phone [...] | Telephone | [facility] [place] | [place], | Medication Related | | 2018 | | CARDIOLOGY [address] | ADARSH Santo [address] | | | | | [place], | [place], | | | | | [place] [address] | [place] [address] | | | | | [phone] | [phone] | | | | | | | [...] | | | | | | [place] [address] | | | | | | [phone] | | | | | | | | +--------+ + + + + | 12/16/ | Office | Cardiac | Randy Figueroa, | | | 2018 | Visit | Rehabilitation | MD [address] | | | | | | [place], | | | | | | [place] [address] | | | | | | [phone] | | | | | | | | +--------+ + + + + | 12/21/ | Office | Cardiac | Randy Figueroa, | | | 2018 | Visit | Rehabilitation | MD [address] | | | | | | [place], | | | | | | [place] [address] | | | | | | [phone] | | | | | | | | +--------+ + + + + | 12/23/ | Office | Cardiac | Randy Figueroa, | | | 2018 | Visit | Rehabilitation | MD [address] | | | | | | [place], | | | | | | [place] [address] | | | | | | [phone] | | | | | | | | +--------+ + + + + | 12/28/ | Office | Cardiac | Randy Figueroa, | | | 2018 | Visit | Rehabilitation | MD [address] | | | | | | [place], | | | | | | [place] [address] | | | | | | [phone] | | | | | | | | +--------+ + + + + | 12/30/ | Office | Cardiac | Randy Figueroa, | | 2018 | Visit | Rehabilitation | MD [address] | | | | | | [place], | | | | | | [place] [address] | | | | | | [phone] | | | | | | | | +--------+ + + + + | 01/04/ | Office | Cardiac | Randy Figueroa, | | | 2018 | Visit | Rehabilitation | MD [address] | | | | | | [place], | | | | | | [place] [address] | | | | | | [phone] | | | | | | | | +--------+ + + + + | 01/06/ | Office | Cardiac | Randy Figueroa, | | | 2018 | Visit | Rehabilitation | MD [address] | | | | | | [place], | | | | | | [place] [address] | | | | | | [phone] | | | | | | | | +--------+ + + + + | 01/11/ | Office | Cardiac | Randy Figueroa, | | | 2018 | Visit | Rehabilitation | MD [address] | | | | | | [place], | | | | | | [place] [address] | | | | | | [phone] | | | | | | | | +--------+ + + + + | 03/24/ | Procedure | Cardiology | | | | 2018 | visit | | | | +--------+ + + + + | 03/24/ | Office | Cardiology | Jenny, | | | 2018 | Visit | | ADARSH Santo [address] | | | | | [address] [place], | | | | | | [place] [address] | | | | | | [phone] | | | | | | | [...] | starting 11/30/2018 | | | | chickaloon coronary | until 12/01/2019 | | | | artery of chickaloon | | | | | heart without angina | | | | | pectoris | | + +--------+ + + as of this encounter Visit Diagnoses + + | Diagnosis | + + | Coronary 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 involving chickaloon coronary artery of chick[place] heart without | | angina pectoris - Primary | + +"
--- OUTSIDE RECORDS SUMMARY | ~2018-12-10 | XMS | Encounter Summary ---
Demographics + + + | Address | [address] | | | [place] [address] | + + + | Home Phone [...] | [place] | | | | | [address] | | + + + + + Care Team Providers + +------+ + | Care Side Framer Name | Role | Phone | + [...] | | | involving | [address] [place] | | | | | barrow | MARKO MCGUIRE | [place] | | | | | coronary | [address] | [address] | | | | | artery of | Phone: | Phone: | | | | | barrow heart | [phone] | [phone] | | | | | without | Fax: | Fax: | | | | | angina | [phone] | [phone] | | | | | pectoris | | | + + + + + + + Encounter Details +--------+---------+ + + + | Date | Type | Department | Care Team | Description | +--------+---------+ + + + | 11/09/ | Office | [facility] | Randy Figueroa, | Coronary artery | | 2019 | Visit | MED CTR CARDIAC | MD [address] | disease involving | | | | REHABILITATION [address] | [place], | barrow coronary | | | | [address] [place] | [place] [address] | artery of barrow | | | | [place] [address] | [phone] | heart without angina | | | | [phone] | | pectoris (Primary | | | [...] CTR CARDIAC REHABILITATION [address] [place] [address] Cardiac Rehab Date: 11/09/2018 Patient Information Patient Name: Bob Will Date of : 1955 Age: 63 y.o. Encounter Diagnoses Code Name Primary? I25.10 Coronary 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 involving barrow coronary artery of barrow heart without angina pectoris Yes Number of [...] | | | | | | [place], | | | | | | [place] [address] | | | | | | [phone] | | | | | | | | +--------+ + + + + | 12/16/ | Office | Cardiac | Randy Figueroa, | | | 2018 | Visit | Rehabilitation | MD [address] | | | | | | [place], | | | | | | [place] [address] | | | | | | [phone] | | | | | | | | +--------+ + + + + | 12/21/ | Office | Cardiac | Randy Figueroa, | | | 2018 | Visit | Rehabilitation | MD [address] | | | | | | [place], | | | | | | [place] [address] | | | | | | [phone] | | | | | | | | +--------+ + + + + | 12/23/ | Office | Cardiac | Randy Figueroa, | | | 2018 | Visit | Rehabilitation | MD [address] | | | | | | [place], | | | | | | [place] [address] | | | | | | [phone] | | | | | | | | +--------+ + + + + | 12/28/ | Office | Cardiac | Randy Figueroa, | | | 2018 | Visit | Rehabilitation | MD [address] | | | | | | [place], | | | | | | [place] [address] | | | | | | [phone] | | | | | | | | +--------+ + + + + | 12/30/ | Office | Cardiac | Randy Figueroa, | | | 2018 | Visit | Rehabilitation | MD [address] | | | | | | [place], | | | | | | [place] [address] | | | | | | [phone] | | | | | | | | +--------+ + + + + | 01/04/ | Office | Cardiac | Randy Figueroa, | | | 2018 | Visit | Rehabilitation | MD [address] | | | | | | [place], | | | | | | [place] [address] | | | | | | [phone] | | | | | | | | +--------+ + + + + | 01/06/ | Office | Cardiac | Randy Figueroa, | | | 2018 | Visit | Rehabilitation | MD [address] | | | | | | [place], | | | | | | [place] [address] | | | | | | [phone] | | | | | | | | +--------+ + + + + | 01/11/ | Office | Cardiac | Randy Figueroa, | | | 2018 | Visit | Rehabilitation | MD [address] | | | | | | [place], | | | | | | [place] [address] | | | | | | [phone] | | | | | | | [...] | | | | | | [place] [address] | | | | | | [phone] | | | | | | | | +--------+ + + + + as of this encounter Visit Diagnoses + + | Diagnosis | + + | Coronary 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 involving barrow coronary artery of barrow heart without | | angina pectoris - Primary | + +"
--- OUTSIDE RECORDS SUMMARY | ~2018-12-10 | XMS | Encounter Summary ---
Demographics + + + | Address | [address] | | | [place] [address] | + + + | Home Phone [...] | [place] | | | | | [address] | | + + + + + Care Team Providers + +------+ + | Care Textiles Printer Name | Role | Phone | [...] | | | involving | [address] | [place] | | | | | [place] | MARKO MCGUIRE | [place] | | | | | coronary | [address] | [address] | | | | | artery of | Phone: | Phone: | | | | | [place] heart | [phone] | [phone] | | | | | without | Fax: | Fax: | | | | | angina | [phone] | [phone] | | | | | pectoris | | | + + + + + + + Encounter Details +--------+---------+ + + + | Date | Type | Department | Care Team | Description | +--------+---------+ + + + | 09/28/ | Office | [facility] | Randy Figueroa, | Coronary artery | | 2019 | Visit | MED CTR CARDIAC | MD [address] | disease, angina | | | | REHABILITATION [address] | [place], | presence | | | | [address] | [place] [address] | unspecified, | | | | [place] [address] | [phone] | unspecified vessel | | | | [phone] | | or lesion type, | | | | | | unspecified whether | | | | | | [place] or | | | | | | [...] note may be different from the origin [facility] CARD[facility]ABILITATION [address] [place] [address] Cardiac Rehab Date: 09/28/2018 Patient Information Patient Name: Bob Will Date of : 1955 Age: 62 y.o. Encounter Diagnoses Code Name Primary? I25.10 Coronary 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, angina presence unspecified, unspecified vessel or lesi on type, unspecified whether [place] or transplanted heart Yes Z98.61 Post PTCA [...] Visit | Rehabilitation | MD [address] [place] | | | | | | [place], | | | | | | [place] [address] | | | | | | [phone] | | | | | | | | +--------+ + + + + | 12/16/ | Office | Cardiac | Randy Figueroa, | | | 2018 | Visit | Rehabilitation | MD [address] | | | | | | [place], | | | | | | [place] [address] | | | | | | [phone] | | | | | | | | +--------+ + + + + | 12/21/ | Office | Cardiac | Randy Figueroa, | | | 2018 | Visit | Rehabilitation | MD [address] | | | | | | [place], | | | | | | [place] [address] | | | | | | [phone] | | | | | | | | +--------+ + + + + | 12/23/ | Office | Cardiac | Randy Figueroa, | | | 2018 | Visit | Rehabilitation | MD [address] | | | | | | [place], | | | | | | [place] [address] | | | | | | [phone] | | | | | | | | +--------+ + + + + | 12/28/ | Office | Cardiac | Randy Figueroa, | | | 2018 | Visit | Rehabilitation | MD [address] | | | | | | [place], | | | | | | [place] [address] | | | | | | [phone] | | | | | | | | +--------+ + + + + | 12/30/ | Office | Cardiac | Randy Figueroa, | | | 2018 | Visit | Rehabilitation | MD [address] | | | | | | [place], | | | | | | [place] [address] | | | | | | [phone] | | | | | | | | +--------+ + + + + | 01/04/ | Office | Cardiac | Randy Figueroa, | | | 2018 | Visit | Rehabilitation | MD [address] | | | | | | [place], | | | | | | [place] [address] | | | | | | [phone] | | | | | | | | +--------+ + + + + | 01/06/ | Office | Cardiac | Randy Figueroa, | | | 2018 | Visit | Rehabilitation | [address] | | | | | | [place], | | | | | | [place] [address] | | | | | | [phone] | | | | | | | | +--------+ + + + + | 01/11/ | Office | Cardiac | Randy Figueroa, | | | 2018 | Visit | Rehabilitation | MD [address] | | | | | | [place], | | | | | | [place] [address] | | | | | | [phone] | | | | | | | | +--------+ + + + + | 03/24/ | Procedure | Cardiology | | | | 2018 | visit | | | | +--------+ + + + + | 03/24/ | Office | Cardiology | Jenny, | | | 2018 | Visit | | ADARSH Santo [address] | | | | | | [place], | | | | | | [place] [address] | | | | | | [phone] | | | | | | | | +--------+ + + + + as of this encounter Visit Diagnoses + + | Diagnosis | + + | Coronary 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, angina presence unspecified, unspecified vessel or lesion | | type, unspecified whether [place] or transplanted heart - Primary | + + | Post PTCA | + + | Postsurgical percutaneous transluminal coronary angioplasty status | + +"
--- OUTSIDE RECORDS SUMMARY | ~2018-12-10 | XMS | Encounter Summary ---
Demographics + + + | Address | [address] | | | [place] [address] | + + + | Home Phone [...] [place] | | | | | [address] | | + + + + + Care Team Providers + +------+ + | Care Silk Conditioner Name | Role | Phone | + +------+ + | Young Haque DO | PCP | | + +------+ + Encounter Details +--------+ + + + + | Date | Type | Department | Care Team | Description | +--------+ + + + + | 03/19/ | Abstract | [facility] [place] | Jenny, | | | 2018 | | CARDIOLOGY [address] | Hansa METAL FABRICATING SUPERVISOR [address] | | | | | [place], | [place], | | | | | [place] [address] | [place] [address] | | | | | [phone] | [phone] | | | | | | | [...] Visit | Rehabilitation | MD [address] [place] | | | | | | [place], | | | | | | [place] [address] | | | | | | [phone] | | | | | | | | +--------+ + + + + | 12/16/ | Office | Cardiac | Randy Figueroa, | | | 2018 | Visit | Rehabilitation | MD [address] | | | | | | [place], | | | | | | [place] [address] | | | | | | [phone] | | | | | | | | +--------+ + + + + | 12/21/ | Office | Cardiac | Randy Figueroa, | | | 2018 | Visit | Rehabilitation | MD [address] | | | | | | [place], | | | | | | [place] [address] | | | | | | [phone] | | | | | | | | +--------+ + + + + | 12/23/ | Office | Cardiac | Randy Figueroa, | | | 2018 | Visit | Rehabilitation | MD [address] | | | | | | [place], | | | | | | [place] [address] | | | | | | [phone] | | | | | | | | +--------+ + + + + | 12/28/ | Office | Cardiac | Randy Figueroa, | | | 2018 | Visit | Rehabilitation | MD [address] | | | | | | [place], | | | | | | [place] [address] | | | | | | [phone] | | | | | | | | +--------+ + + + + | 12/30/ | Office | Cardiac | Randy Figueroa, | | | 2018 | Visit | Rehabilitation | MD [address] | | | | | | [place], | | | | | | [place] [address] | | | | | | [phone] | | | | | | | | +--------+ + + + + | 01/04/ | Office | Cardiac | Randy Figueroa, | | | 2018 | Visit | Rehabilitation | MD [address] | | | | | | [place], | | | | | | [place] [address] | | | | | | [phone] | | | | | | | | +--------+ + + + + | 01/06/ | Office | Cardiac | Randy Figueroa, | | | 2018 | Visit | Rehabilitation | [address] | | | | | | [place], | | | | | | [place] [address] | | | | | | [phone] | | | | | | | | +--------+ + + + + | 01/11/ | Office | Cardiac | Randy Figueroa, | | | 2018 | Visit | Rehabilitation | [address] | | | | | | [place], | | | | | | [place] [address] | | | | | | [phone] | | | | | | | | +--------+ + + + + | 03/24/ | Procedure | Cardiology | | | | 2018 | visit | | | | +--------+ + + + + | 03/24/ | Office | Cardiology | Jenny, | | | 2018 | Visit | | ADARSH Santo [address] | | | | | | [place], | | | | | | [place] [address] | | | | | | [phone] | | | | | | | [...]
--- OUTSIDE RECORDS SUMMARY | ~2018-12-10 | XMS | Encounter Summary ---
Demographics + + + | Address | [address] [place] [address] [address] | | | [place] [address] | + + + | Home Phone | | + + + | Preferred Language | Unknown | + + + | Marital Status | | + + + | Mormon Affiliation | Unknown | + + + | Race | Unknown | + + + | Ethnic Group | Unknown | + + + Author + + + | Author | [facility] [facility] | + + + | Organization | [facility] | + + + | Address | Unknown | + + + | Phone | Unavailable | + + + Support + + +---------+ + | Name | Relationship | Address | Phone | + + +---------+ + | Venice Mckeon | ECON | Unknown | | + + +---------+ + Care Team Providers + +------+ + | Care Hydrodynamics Teacher Name | Role | Phone | [...] HF chronicity, | | | | | [address] | unspecified heart | | | | [...] RON MCKEON Date of : 1955 | [facility] | | Performing Physician: Rocio | RADIOLOGY | | [facility] | | | | | [...] MV A Rohan: 0.86 m/s MV Dec Edwards: 3.26 m/s2 | | | MV DecT: [...] | 21.47 mmHg TR Vmax: 2.31 m/s Wet Process Miller Head Assistant: ANJANA Authenticated | | | [facility]: [facility] Report Date/Time: 11-04-2018 19:16:25 | | + + + + + | Procedure Note | + + | Sebastian, Rad Results In - 11/04/2018 7:20 PM PST Patient Name: Belkys MCKEON of | | : 5Accession: [id number] Physician: Rocio | | [facility] INDICATIONS------ | | -----CHFCONCLUSIONS 1. [...] | 5.92 cmLVPWd: 1.01 cmLVOT Area: 3.17 [id number] Diam: 2.01 cm%FS: 15.56 %EF(Teich): | | [...] mlLAESV Index (A-L): 42.88 ml/m2LAAs A2C: 24.92 [id number] A-L | | A2C: 95.08 mlLALs A2C: 5.54 cmLAAs A4C: 19.37 [id number] A-L A4C: 70.66 mlLALs | | A4C: 4.50 cmRAAs: 18.79 ka0MGWCJ A-L: 67.38 mlRAESV MOD: 63.17 mlRALs: 4.44 | | cmTAPSE: 2.12 cmAV maxP.82 mmHgAV meanP.56 mmHgAV Vmax: 1.30 m/Emil | | Vmean: 0.88 m/Emil VTI: 25.33 cmAVA Vmax: 2.55 cm2AVA (VTI): 2.49 bo5CDTP (Vmax): | | 0.00 cm2/m2AVAI (VTI): 0.00 cm2/m2LVOT maxP.40 mmHgLVOT meanP.91 | | mmHgLVSI Dopp: 29.85 ml/m2LVSV Dopp: 63.29 mlLVOT Vmax: 1.04 m/sLVOT Vmean: 0.64 | | m/sLVOT VTI: 19.92 cmMV A Rohan: 0.86 m/sMV Dec Edwards: 3.26 m/s2MV DecT: 218.32 | | msMV E Rohan: 0.71 m/sMV E/A Ratio: 0.82 MV PHT: 63.31 msMVA By PHT: 3.47 | | sc3Amzgdw e': 0.04 m/sSeptal E/e': 15.51 Lateral e': 0.06 m/sLateral E/e': 10.91 | | RAP: 5 mmHgRVSP: 26.47 mmHgTR maxP.47 mmHgTR Vmax: 2.31 m/sSonographer: | | DBSAuthenticated by: Mershed [facility] Center[facility] Date/Time: 11-04-2018 19:16:25IMPRESSION:1. | | [...] A Rohan: 0.86 m/s | |MV Dec Edwards: 3.26 m/s2 | |MV DecT: 218.32 ms [...] |TR Vmax: 2.31 m/s | | | |Wet Process Miller Head Assistant: DBS | |Authenticated by: Rocio Pearl | [...] | + + + + + | [facility] | [address] | [place] [address] | | + + + + + in this encounter Visit Diagnoses + + | Diagnosis | + + | Congestive heart failure, unspecified HF chronicity, unspecified heart failure type | | (HCC) | + +"
--- OUTSIDE RECORDS SUMMARY | ~2018-12-10 | XMS | Encounter Summary ---
Demographics + + + | Address | [address] | | | [place] [address] | + + + | Home Phone [...] | [place] | | | | | [address] | | + + + + + Care Team Providers + +------+ + | Care Pulling Machine Operator Name | Role | Phone [...] | | | involving | [address] | [place] | | | | | ute | MARKO MCGUIRE | [place] | | | | | coronary | [address] | [address] | | | | | artery of | Phone: | Phone: | | | | | ute heart | [phone] | [phone] | | | | | without | Fax: | Fax: | | | | | angina | [phone] | [phone] | | | | | pectoris | | | + + + + + + + Encounter Details +--------+---------+ + + + | Date | Type | Department | Care Team | Description | +--------+---------+ + + + | 12/02/ | Office | [facility] | Randy Figueroa, | Coronary artery | | 2019 | Visit | MED CTR CARDIAC | MD [address] | disease involving | | | | REHABILITATION [address], | ute coronary | | | | [address] [place] | [place] [address] | artery of ute | | | | [place] [address] | [phone] | heart without angina | | | | [phone] | | pectoris (Primary | | | [...] may be different from the origin al. [facility] MED CTR CARDIAC REHABILITATION [address] [place] [address] Cardiac Rehab Date: 12/02/2018 Patient Information Patient Name: Bob Will Date of : 1955 Age: 63 y.o. Encounter Diagnoses Code Name Primary? I25.10 Coronary 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 involving ute coronary artery of ute heart without angina pectoris Yes Z98.61 Post [...] Visit | Rehabilitation | MD [address] | | | | | | [place], | | | | | | [place] [address] | | | | | | [phone] | | | | | | | | +--------+ + + + + | 12/16/ | Office | Cardiac | Randy Figueroa, | | | 2018 | Visit | Rehabilitation | MD [address] | | | | | | [place], | | | | | | [place] [address] | | | | | | [phone] | | | | | | | | +--------+ + + + + | 12/21/ | Office | Cardiac | Randy Figueroa, | | | 2018 | Visit | Rehabilitation | MD [address] | | | | | | [place], | | | | | | [place] [address] | | | | | | [phone] | | | | | | | | +--------+ + + + + | 12/23/ | Office | Cardiac | Randy Figueroa, | | | 2018 | Visit | Rehabilitation | MD [address] | | | | | | [place], | | | | | | [place] [address] | | | | | | [phone] | | | | | | | | +--------+ + + + + | 12/28/ | Office | Cardiac | Randy Figueroa, | | | 2018 | Visit | Rehabilitation | MD [address] | | | | | | [place], | | | | | | [place] [address] | | | | | | [phone] | | | | | | | | +--------+ + + + + | 12/30/ | Office | Cardiac | Randy Figueroa, | | | 2018 | Visit | Rehabilitation | MD [address] | | | | | | [place], | | | | | | [place] [address] | | | | | | [phone] | | | | | | | | +--------+ + + + + | 01/04/ | Office | Cardiac | Randy Figueroa, | | | 2018 | Visit | Rehabilitation | MD [address] | | | | | | [place], | | | | | | [place] [address] | | | | | | [phone] | | | | | | | | +--------+ + + + + | 01/06/ | Office | Cardiac | Randy Figueroa, | | | 2018 | Visit | Rehabilitation | MD [address] | | | | | | [place], | | | | | | [place] [address] | | | | | | [phone] | | | | | | | | +--------+ + + + + | 01/11/ | Office | Cardiac | Randy Figueroa, | | | 2018 | Visit | Rehabilitation | MD [address] | | | | | | [place], | | | | | | [place] [address] | | | | | | [phone] | | | | | | | | +--------+ + + + + | 03/24/ | Procedure | Cardiology | | | | 2018 | visit | | | | +--------+ + + + + | 03/24/ | Office | Cardiology | Saline, | | | 2018 | Visit | | ADARSH Santo [address] | | | | | | [place], | | | | | | [place] [address] | | | | | | [phone] | | | | | | | | +--------+ + + + + as of this encounter Visit Diagnoses + + | Diagnosis | + + | Coronary 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 involving ute coronary artery of ute heart without | | angina pectoris - Primary | + + | Post PTCA | + + | Postsurgical percutaneous transluminal coronary angioplasty status | + +"
--- OUTSIDE RECORDS SUMMARY | ~2018-12-10 | XMS | Encounter Summary ---
Demographics + + + | Address | [address] | | | [place] [address] | + + + | Home Phone [...] | [place] | | | | | [address] | | + + + + + Care Team Providers + +------+ + | Care Package Worker Name | Role | Phone | [...] | | | involving | [address] [place] | | | | | [place] | MARK[place]UIRE | [place] | | | | | coronary | [address] | [address] | | | | | artery of | Phone: | Phone: | | | | | [place] heart | [phone] | [phone] | | | | | without | Fax: | Fax: | | | | | angina | [phone] | [phone] | | | | | pectoris | | | + + + + + + + Encounter Details +--------+---------+ + + + | Date | Type | Department | Care Team | Description | +--------+---------+ + + + | 11/23/ | Office | [facility] | Rahullindacathy Lindaangusleo, | Acute on chronic | | 2019 | Visit | MED CTR CARDIAC | MD [address] | systolic congestive | | | | REHABILITATION [address] | [place], | heart failure (HCC) | | | | [address] [place] | [place] [address] | (Primary Dx) | | | | [place] [address] | [phone] | | | | | [phone] | | | +--------+---------+ + + + [...] may be differ ent from the original. [facility]IAC RE[facility]ABILITATION [address] [facility] [address] Cardiac Rehab Date: 11/23/2018 Patient Information Patient [...] | Visit | Rehabilitation | MD [address] | | | | | | [place], | | | | | | [place] [address] | | | | | | [phone] | | | | | | | | +--------+ + + + + | 12/16/ | Office | Cardiac | Randy Figueroa, | | | 2018 | Visit | Rehabilitation | MD [address] | | | | | | [place], | | | | | | [place] [address] | | | | | | [phone] | | | | | | | | +--------+ + + + + | 12/21/ | Office | Cardiac | Randy Figueroa, | | | 2018 | Visit | Rehabilitation | MD [address] | | | | | | [place], | | | | | | [place] [address] | | | | | | [phone] | | | | | | | | +--------+ + + + + | 12/23/ | Office | Cardiac | Randy Figueroa, | | | 2018 | Visit | Rehabilitation | MD [address] | | | | | | [place], | | | | | | [place] [address] | | | | | | [phone] | | | | | | | | +--------+ + + + + | 12/28/ | Office | Cardiac | Randy Figueroa, | | | 2018 | Visit | Rehabilitation | MD [address] | | | | | | [place], | | | | | | [place] [address] | | | | | | [phone] | | | | | | | | +--------+ + + + + | 12/30/ | Office | Cardiac | Randy Figueroa, | | | 2018 | Visit | Rehabilitation | MD [address] | | | | | | [place], | | | | | | [place] [address] | | | | | | [phone] | | | | | | | | +--------+ + + + + | 01/04/ | Office | Cardiac | Randy Figueroa, | | | 2018 | Visit | Rehabilitation | MD [address] | | | | | | [place], | | | | | | [place] [address] | | | | | | [phone] | | | | | | | | +--------+ + + + + | 01/06/ | Office | Cardiac | Randy Figueroa, | | | 2018 | Visit | Rehabilitation | MD [address] | | | | | | [place], | | | | | | [place] [address] | | | | | | [phone] | | | | | | | | +--------+ + + + + | 01/11/ | Office | Cardiac | Randy Figueroa, | | | 2018 | Visit | Rehabilitation | MD [address] | | | | | | [place], | | | | | | [place] [address] | | | | | | [phone] | | | | | | | | +--------+ + + + + | 03/24/ | Procedure | Cardiology | | | | 2018 | visit | | | | +--------+ + + + + | 03/24/ | Office | Cardiology | Jenny, | | | 2019 | Visit | | ADARSH Santo [address] | | | | | | [place], | | | | | | [place] [address] | | | | | | [phone] | | | | | | | | +--------+ + + + + as of this encounter Visit Diagnoses + + | Diagnosis | + + | Acute on chronic systolic congestive heart failure (HCC) - Primary | + + | Acute on chronic systolic heart failure | + +"
--- OUTSIDE RECORDS SUMMARY | ~2018-12-10 | XMS | Encounter Summary ---
Demographics + + + | Address | [address] | | | [place] [address] | + + + | Home Phone [...] | [place] | | | | | [address] | | + + + + + Care Team Providers + +------+ + | Care Nuclear Medicine Chief Technologist Name | Role | Phone | [...] | | | involving | [address] [place] | | | | | blackfeet | [place] | [place] | | | | | coronary | [address] | [address] | | | | | artery of | Phone: | Phone: | | | | | blackfeet heart | [phone] | [phone] | | | | | without | Fax: | Fax: | | | | | angina | [phone] | [phone] | | | | | pectoris | | | + + + + + + + Encounter Details +--------+---------+ + + + | Date | Type | Department | Care Team | Description | +--------+---------+ + + + | 10/07/ | Office | [facility] | Carolina Lindarisa, | Coronary artery | | 2019 | Visit | MED CTR CARDIAC | MD [address] | disease, angina | | | | REHABILITATION [address] [place], | presence | | | | [address] [place] | [place] [address] | unspecified, | | | | [place] [address] | [phone] | unspecified vessel | | | | [phone] | | or lesion type, | | | | | | unspecified whether | | | | | | blackfeet or | | | | | | [...] may be different from the origin [facility] [address] [place] [address] Cardiac Rehab 60 Day Review Date: 10/07/2018 Patient Information Patient Name: Bob Will Date of : 1955 Age: 62 y.o. Referring Provider: Randy Figueroa MD Encounter Diagnoses Code Name Primary? I25.10 Coronary 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, angina presence unspecified, unspecified vessel or lesi on type, unspecified whether blackfeet or transplanted heart Yes Z98.61 Post PTCA Cardiac Rehab Phase II Leon atment Plan Bob Will (Bob) is a 62 y.o. male with a history of coronary 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 post rec ent anterior wall MN, post PTCA and stents of the left main, LAD and LCx on 03/15/17, cardiac shock, left atrial appendage thrombus, pneumonitis and septic shock, and severe in-stent chery nosis, MN in Sep 2017, episodes of VT and subsequent PTCA in Oct 2017, CHF, LVEF 35-40%, PORCELAIN WAXER -D placement in [facility] on 10/17/2017. He has [...] control. Also began walking with his around [employer] 3 days a week along with chasing [...] Healthy Dietary Education Date: 08/03/18 -Referral to Diver Pumper: Date: -DVD: Healthy Eating For Life Date: [...] exercise until stable. Date: Range: -Referral to Mud Analysis Supervisor Date: Education Points listed below- Date Completed: [...] Visit | Rehabilitation | MD [address] | | | | | | [place], | | | | | | [place] [address] | | | | | | [phone] | | | | | | | | +--------+ + + + + | 12/16/ | Office | Cardiac | Randy Figueroa, | | | 2018 | Visit | Rehabilitation | MD [address] | | | | | | [place], | | | | | | [place] [address] | | | | | | [phone] | | | | | | | | +--------+ + + + + | 12/21/ | Office | Cardiac | Randy Figueroa, | | | 2018 | Visit | Rehabilitation | MD [address] | | | | | | [place], | | | | | | [place] [address] | | | | | | [phone] | | | | | | | | +--------+ + + + + | 12/23/ | Office | Cardiac | Randy Figueroa, | | | 2018 | Visit | Rehabilitation | MD [address] | | | | | | [place], | | | | | | [place] [address] | | | | | | [phone] | | | | | | | | +--------+ + + + + | 12/28/ | Office | Cardiac | Randy Figueroa, | | | 2018 | Visit | Rehabilitation | MD [address] | | | | | | [place], | | | | | | [place] [address] | | | | | | [phone] | | | | | | | | +--------+ + + + + | 12/30/ | Office | Cardiac | Randy Figueroa, | | | 2018 | Visit | Rehabilitation | MD [address] | | | | | | [place], | | | | | | [place] [address] | | | | | | [phone] | | | | | | | | +--------+ + + + + | 01/04/ | Office | Cardiac | Randy Figueroa, | | | 2018 | Visit | Rehabilitation | MD [address] | | | | | | [place], | | | | | | [place] [address] | | | | | | [phone] | | | | | | | | +--------+ + + + + | 01/06/ | Office | Cardiac | Randy Figueroa, | | | 2018 | Visit | Rehabilitation | MD [address] | | | | | | [place], | | | | | | [place] [address] | | | | | | [phone] | | | | | | | | +--------+ + + + + | 01/11/ | Office | Cardiac | Randy Figueroa, | | | 2018 | Visit | Rehabilitation | MD [address] | | | | | | [place], | | | | | | [place] [address] | | | | | | [phone] | | | | | | | | +--------+ + + + + | 03/24/ | Procedure | Cardiology | | | | 2018 | visit | | | | +--------+ + + + + | 03/24/ | Office | Cardiology | Jenny, | | | 2018 | Visit | | ADARSH Santo [address] | | | | | | [address], | | | | | | [place] [address] | | | | | | [phone] | | | | | | | | +--------+ + + + + as of this encounter Visit Diagnoses + + | Diagnosis | + + | Coronary 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, angina presence unspecified, unspecified vessel or lesion | | type, unspecified whether blackfeet or transplanted heart - Primary | + + | Post PTCA | + + | Postsurgical percutaneous transluminal coronary angioplasty status | + +
--- OUTSIDE RECORDS SUMMARY | ~2018-12-10 | XMS | Clinical Summary ---
Demographics + + + | Address | [address] | | | [place] [address] | + + + | Home Phone [...] [place] | | | | | [address] | | + + + + + Care Team Providers + +------+ + | Care Barrel Marker Name | Role | Phone | + [...] | | Activ | | (VITAMIN D-3) [id number] | a week. | | | | [...] | | nasal spray | nasal spray [place] 2 | | | | | | [...] e | | spray | aerosol spray [place] | | | | | | | [...] | 11/12/2017 | + + + | VARNISHING UNIT TOOL SETTER-D (AICKatie) Medtronic 10/16/17 EULOGIO Darby | 10/19/2017 | + + + + + | Overview: Formatting of this note may be different from the | | original. MODEL NAME MODEL# SERIAL# DATE IMPLANTED GENERATOR | | Medtronic [id number] 10/16/17 RV LEAD Medtronic [id number] | | [id number] 10/16/17 A LEAD Medtronic [id number] 10/16/17 | | Coronary Sinus LEAD Medtronic [id number] 10/16/17 | | Indication: ischemic cardiomyopathy with reduced EF 30-35% Last | | Assessment & Plan: Medtronic AICD Placed in 10/2017 at [facility]. | | A:-Patient ventricular paced 100% this morning. No arrhythmias on | | telemetry.P:-No acute therapy. Continue current therapy. | | | | Last Assessment & Plan: Medtronic AICD Placed in 10/2017 at [facility]. | | | |A: | |-Patient [...] + + + | Overview: S/P Medtronic VARNISHING UNIT TOOL SETTER-D 10-16-17 Dr Darby, [facility] [...] disease involving [place] coronary artery of | 04/06/2017 | | [place] heart without angina pectoris | | + [...] involving | | | | | | [place] coronary | | | | | | artery of [place] | | | | | | heart without angina | | | | | | pectoris (Primary | | | | | | Dx); Post PTCA | +--------+ + + + + | 12/07/ | Office | | Randy Figueroa, | Coronary artery | | 2018 | Visit | | MD | disease involving | | | | | | [place] coronary | | | | | | artery of [place] | | | | | | heart [...] | | | | | (Primary Dx); VARNISHING UNIT TOOL SETTER-D | | | | | | (AICD) Medtronic | | | | | | 10/16/17 KYMENDY Darby; | | | | | | Ischemic | | | | | | cardiomyopathy | +--------+ + + + + | 12/02/ | Office | | Randy Figueroa, | Coronary artery | | 2018 | Visit | | MD | disease involving | | | | | | [place] coronary | | | | | | artery of [place] | | | | | | heart [...] involving | | | | | | [place] coronary | | | | | | artery of [place] | | | | | | heart [...] involving | | | | | | [place] coronary | | | | | | artery of [place] | | | | | | heart [...] involving | | | | | | [place] coronary | | | | | | artery of [place] | | | | | | heart [...] involving | | | | | | [place] coronary | | | | | | artery of [place] | | | | | | heart [...] whether | | | | | | [place] or | | | | | | [...] whether | | | | | | [place] or | | | | | | [...] whether | | | | | | [place] or | | | | | | [...] whether | | | | | | [place] or | | | | | | [...] whether | | | | | | [place] or | | | | | | [...] whether | | | | | | [place] or | | | | | | [...] whether | | | | | | [place] or | | | | | | [...] | | | | | anterior wall AL | | | | | | (HCC); Coronary | | | | | | 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 | | | | | | involving [place] | | | | | | coronary artery of | | | | | | [place] heart without | | | | | [...] whether | | | | | | [place] or | | | | | | [...] | Visit | | MD [address] | | | | | | [place], | | | | | | [place] [address] | | | | | | [phone] | | | | | | | | +--------+ + + + + | 12/16/ | Office | | Randy Figueroa, | | | 2018 | Visit | | MD [address] | | | | | | [place], | | | | | | [place] [address] | | | | | | [phone] | | | | | | | | +--------+ + + + + | 12/21/ | Office | | Randy Figueroa, | | | 2018 | Visit | | MD [address] | | | | | | [place], | | | | | | [place] [address] | | | | | | [phone] | | | | | | | | +--------+ + + + + | 12/23/ | Office | | Randy Figueroa, | | | 2018 | Visit | | MD [address] | | | | | | [place], | | | | | | [place] [address] | | | | | | [phone] | | | | | | | | +--------+ + + + + | 12/28/ | Office | | Randy Figueroa, | | | 2018 | Visit | | MD [address] | | | | | | [place], | | | | | | [place] [address] | | | | | | [phone] | | | | | | | | +--------+ + + + + | 12/30/ | Office | | Randy Figueroa, | | | 2018 | Visit | | MD [address] | | | | | | [place], | | | | | | [place] [address] | | | | | | [phone] | | | | | | | | +--------+ + + + + | 01/04/ | Office | | Randy Figueroa, | | | 2018 | Visit | | MD [address] | | | | | | [place], | | | | | | [place] [address] | | | | | | [phone] | | | | | | | | +--------+ + + + + | 01/06/ | Office | | Randy Figueroa, | | | 2018 | Visit | | MD [address] | | | | | | [place], | | | | | | [place] [address] | | | | | | [phone] | | | | | | | | +--------+ + + + + | 01/11/ | Office | | Randy Figueroa, | | | 2018 | Visit | | MD [address] | | | | | | [place], | | | | | | [place] [address] | | | | | | [phone] | | | | | | | [...] [place], | | | | | | [place] [address] | | | | | | [phone] | | | | | | | [...] Generi | Left: | TERUMO LORIN | [id number] | 12/05/ | [id number] | | [id number]: Qty: 1 | c | Groin | - TERU | [id number] | 2018 | / | | on 05/19/2018 by Thew, | | | | 20 | | /[id number] | | Khurram Isbael MD | | | | | | 371 | + +--------+--------+ +--------+--------+--------+ | Plating Tank Operator Apprentice-D MedtronicImplanted: | Implan | | MEDTRONIC - [...] N/A: | ISAACS | | 12/29/ | [id number] | | Eluting Coronary Stent System | | [place] | DIAGNOSTICS | | 2019 | 0-18 / | | Implanted: Qty: 1 on | | ry | - DAINA | | | | | 03/15/2017 by Monse Ross, | | | | | | /[id number] | | MD | | | | | | 61 | + +--------+--------+ +--------+--------+--------+ | Xience Alpine Everolimus | Stent | N/A: | ISAACS | | 11/03/ | [id number] | | Eluting Coronary Stent System | | [place] | DIAGNOSTICS | | 2019 | 0-23 / | | Implanted: Qty: 1 on | | ry | - DAINA | | | | | 03/15/2017 by Monse Ross, | | | | | | /[id number] | | MD | | | | | | 41 | + +--------+--------+ +--------+--------+--------+ | Kit Perclose Proglide 6fr - | | Right: | ISAACS | [id number] | | 72606- | | [id number]: Qty: 1 | | Alessiain | VASCULAR - | [id number] | | 03 / / | | on 05/19/2018 by Missael, | | | ABVA | 89 | | | | Khurram Isabel MD | | | | | | | + +--------+--------+ +--------+--------+--------+ | Kit Perclose Proglide 6fr - | | Right: | ISAACS | [id number] | | 17270- | | [id number]: Qty: 1 | | Groin | VASCULAR - | [id number] | | 03 / / | | [...] this | | INTERROGATION- | e | 1419 PDT | Interrogation VARNISHING UNIT TOOL SETTER-D | procedure are in the | | [...] | [employer] | MODA | [id number] | Medica | [phone] | | MEDICAID HMO | HEALTH | | id | [id number] | | | | MDCD | | | | | | | HMO [place] | | | | | + +--------+ +--------+ +---------+ | [employer]ETERANS ADMIN | VETERA | [id number] | Indemn | | | | | NS | | ity | | | | | ADMIN | | | | | | | [place] | | | | | | | [place] | | | | | + +--------+ +--------+ +---------+ | VETERANS ADMIN | VETERA | [id number] | Indemn | | | | | [...] Self | [birth year] | Home: | [address] | | | al/Fam | | 1956 | [phone] | [place] | | | [place]wo | | | [phone] | [address] | + +--------+ +--------+ + +
--- OUTSIDE RECORDS SUMMARY | ~2018-12-10 | XMS | Encounter Summary ---
Demographics + + + | Address | [address] | | | [place] [address] | + + + | Home Phone [...] [place] | | | | | [address] | | + + + + + Care Team Providers + +------+ + | Care Locomotive Crane Operator Name | Role | Phone | [...] + + | 11/18/ | Telephone | [facility] | Jenny, | Blood Pressure | | 2019 | | CARDIOLOGY [address] | [place], SPEECH PATHOLOGIST [address] | | | | | [place], | [place], | | | | | [place] [address] | [place] [address] | | | | | [phone] | [phone] | | | | | | | [...] | | | | | | [place] [address] | | | | | | [phone] | | | | | | | | +--------+ + + + + | 12/16/ | Office | Cardiac | Randy Figueroa, | | | 2018 | Visit | Rehabilitation | MD [address] | | | | | | [place], | | | | | | [place] [address] | | | | | | [phone] | | | | | | | | +--------+ + + + + | 12/21/ | Office | Cardiac | Randy Figueroa, | | | 2018 | Visit | Rehabilitation | MD [address] | | | | | | [place], | | | | | | [place] [address] | | | | | | [phone] | | | | | | | | +--------+ + + + + | 12/23/ | Office | Cardiac | Randy Figueroa, | | | 2018 | Visit | Rehabilitation | MD [address] [place] | | | | | | [place], | | | | | | [place] [address] | | | | | | [phone] | | | | | | | | +--------+ + + + + | 12/28/ | Office | Cardiac | Randy Figueroa, | | | 2018 | Visit | Rehabilitation | MD [address] | | | | | | [place], | | | | | | [place] [address] | | | | | | [phone] | | | | | | | | +--------+ + + + + | 12/30/ | Office | Cardiac | Randy Figueroa, | | | 2018 | Visit | Rehabilitation | MD [address] | | | | | | [place], | | | | | | [place] [address] | | | | | | [phone] | | | | | | | | +--------+ + + + + | 01/04/ | Office | Cardiac | Randy Figueroa, | | | 2018 | Visit | Rehabilitation | MD [address] | | | | | | [place], | | | | | | [place] [address] | | | | | | [phone] | | | | | | | | +--------+ + + + + | 01/06/ | Office | Cardiac | Randy Figueroa, | | | 2018 | Visit | Rehabilitation | MD [address] | | | | | | [place], | | | | | | [place] [address] | | | | | | [phone] | | | | | | | | +--------+ + + + + | 01/11/ | Office | Cardiac | Randy Figueroa, | | | 2018 | Visit | Rehabilitation | MD [address] | | | | | | [place], | | | | | | [place] [address] | | | | | | [phone] | | | | | | | [...] | | | | | | [place] [address] | | | | | | [phone] | | | | | | | | +--------+ + + + + as of this encounter Visit Diagnoses Not on filein this encounter"
--- OUTSIDE RECORDS SUMMARY | ~2018-12-10 | XMS | Encounter Summary ---
Demographics + + + | Address | [address] | | | [place] [address] | + + + | Home Phone [...] | [place] | | | | | [address] | | + + + + + Care Team Providers + +------+ + | Care Entry Level Manager Name | Role | Phone | [...] | | | involving | [address] [place] | | | | | [place] | [place], [place] | [place], [place] | | | | | coronary | [address] | [address] | | | | | artery of | Phone: | Phone: | | | | | [place] heart | [phone] | [phone] | | | | | without | Fax: | Fax: | | | | | angina | [phone] | [phone] | | | | | pectoris | | | + + + + + + + Encounter Details +--------+---------+ + + + | Date | Type | Department | Care Team | Description | +--------+---------+ + + + | 11/18/ | Office | [facility] | Randy Figueroa, | Coronary artery | | 2019 | Visit | MED CTR CARDIAC | [address] | disease involving | | | | REHABILITATION [address] [place], | [place] coronary | | | | [address] [place] | [place] [address] | artery of [place] | | | | [place] [address] | [phone] | heart without angina | | | | [phone] | | pectoris (Primary | | | [...] note may be different from the origin [facility] CARDIAC REHABILITATION [address] [facility] [address] Cardiac Rehab Date: 11/18/2018 Patient Information Patient Name: Bob Will Date of : 1955 Age: 63 y.o. Encounter Diagnoses Code Name Primary? I25.10 Coronary 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 involving [place] coronary artery of [place] heart without angina pectoris Yes Z98.61 Post [...] | | | | | | [place] [address] | | | | | | [phone] | | | | | | | | +--------+ + + + + | 12/16/ | Office | Cardiac | Randy Figueroa, | | | 2018 | Visit | Rehabilitation | MD [address] | | | | | | [place], | | | | | | [place] [address] | | | | | | [phone] | | | | | | | | +--------+ + + + + | 12/21/ | Office | Cardiac | Randy Figueroa, | | | 2018 | Visit | Rehabilitation | MD [address] | | | | | | [place], | | | | | | [place] [address] | | | | | | [phone] | | | | | | | | +--------+ + + + + | 12/23/ | Office | Cardiac | Randy Figueroa, | | | 2018 | Visit | Rehabilitation | MD [address] | | | | | | [place], | | | | | | [place] [address] | | | | | | [phone] | | | | | | | | +--------+ + + + + | 12/28/ | Office | Cardiac | Randy Figueroa, | | | 2018 | Visit | Rehabilitation | MD [address] | | | | | | [place], | | | | | | [place] [address] | | | | | | [phone] | | | | | | | | +--------+ + + + + | 12/30/ | Office | Cardiac | Randy Figueroa, | | | 2018 | Visit | Rehabilitation | MD [address] | | | | | | [place], | | | | | | [place] [address] | | | | | | [phone] | | | | | | | | +--------+ + + + + | 01/04/ | Office | Cardiac | Randy Figueroa, | | | 2018 | Visit | Rehabilitation | MD [address] | | | | | | [place], | | | | | | [place] [address] | | | | | | [phone] | | | | | | | | +--------+ + + + + | 01/06/ | Office | Cardiac | Randy Figueroa, | | | 2018 | Visit | Rehabilitation | MD [address] | | | | | | [place], | | | | | | [place] [address] | | | | | | [phone] | | | | | | | | +--------+ + + + + | 01/11/ | Office | Cardiac | Randy Figueroa, | | | 2018 | Visit | Rehabilitation | MD [address] | | | | | | [place], | | | | | | [place] [address] | | | | | | [phone] | | | | | | | | +--------+ + + + + | 03/24/ | Procedure | Cardiology | | | | 2018 | visit | | | | +--------+ + + + + | 03/24/ | Office | Cardiology | Jenny, | | | 2018 | Visit | | [address] | | | | | | [place], | | | | | | [place] [address] | | | | | | [phone] | | | | | | | | +--------+ + + + + as of this encounter Visit Diagnoses + + | Diagnosis | + + | Coronary 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 involving [place] coronary artery of [place] heart without | | angina pectoris - Primary | + + | Post PTCA | + + | Postsurgical percutaneous transluminal coronary angioplasty status | + +"
--- OUTSIDE RECORDS SUMMARY | ~2018-12-10 | XMS | Encounter Summary ---
Demographics + + + | Address | [address] | | | [place] [address] | + + + | Home Phone [...] | [place] | | | | | [address] | | + + + + + Care Team Providers + +------+ + | Care Weights And Measures Inspector Name | Role | Phone | [...] | | | involving | [address] [place] | | | | | kaw | [place] | [place] | | | | | coronary | [address] | [address] | | | | | artery of | Phone: | Phone: | | | | | kaw heart | [phone] | [phone] | | | | | without | Fax: | Fax: | | | | | angina | [phone] | [phone] | | | | | pectoris | | | + + + + + + + Encounter Details +--------+---------+ + + + | Date | Type | Department | Care Team | Description | +--------+---------+ + + + | 09/21/ | Office | [facility] | Rahulyazshiraz Lindarahul, | Coronary artery | | 2019 | Visit | MED CTR CARDIAC | MD [address] | disease, angina | | | | REHABILITATION [address], | presence | | | | [address] [place] | [place] [address] | unspecified, | | | | [place] [address] | [phone] | unspecified vessel | | | | [phone] | | or lesion type, | | | | | | unspecified whether | | | | | | kaw or | | | | | | [...] note may be different from the original. [facility] CARDIAC REHABILITATION [address] [place] [address] Cardiac Rehab Date: 09/21/2018 Patient Information Patient Name: Bob Will Date of : 1955 Age: 62 y.o. Encounter Diagnoses Code Name Primary? I25.10 Coronary 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, angina presence unspecified, unspecified vessel or lesi on type, unspecified whether kaw or transplanted heart Yes Number of Visits [...] Visit | Rehabilitation | MD [address] | | | | | | [place], | | | | | | [place] [address] | | | | | | [phone] | | | | | | | | +--------+ + + + + | 12/16/ | Office | Cardiac | Randy Figueroa, | | | 2018 | Visit | Rehabilitation | MD [address] | | | | | | [place], | | | | | | [place] [address] | | | | | | [phone] | | | | | | | | +--------+ + + + + | 12/21/ | Office | Cardiac | Randy Figueroa, | | | 2018 | Visit | Rehabilitation | MD [address] | | | | | | [place], | | | | | | [place] [address] | | | | | | [phone] | | | | | | | | +--------+ + + + + | 12/23/ | Office | Cardiac | Randy Figueroa, | | | 2018 | Visit | Rehabilitation | MD [address] | | | | | | [place], | | | | | | [place] [address] | | | | | | [phone] | | | | | | | | +--------+ + + + + | 12/28/ | Office | Cardiac | Randy Figueroa, | | | 2018 | Visit | Rehabilitation | MD [address] | | | | | | [place], | | | | | | [place] [address] | | | | | | [phone] | | | | | | | | +--------+ + + + + | 12/30/ | Office | Cardiac | Randy Figueroa, | | | 2018 | Visit | Rehabilitation | MD [address] | | | | | | [place], | | | | | | [place] [address] | | | | | | [phone] | | | | | | | | +--------+ + + + + | 01/04/ | Office | Cardiac | Randy Figueroa, | | 2018 | Visit | Rehabilitation | MD [address] | | | | | | [place], | | | | | | [place] [address] | | | | | | [phone] | | | | | | | | +--------+ + + + + | 01/06/ | Office | Cardiac | Randy Figueroa, | | | 2018 | Visit | Rehabilitation | MD [address] | | | | | | [place], | | | | | | [place] [address] | | | | | | [phone] | | | | | | | | +--------+ + + + + | 01/11/ | Office | Cardiac | Randy Figueroa, | | | 2018 | Visit | Rehabilitation | MD [address] | | | | | | [place], | | | | | | [place] [address] | | | | | | [phone] | | | | | | | | +--------+ + + + + | 03/24/ | Procedure | Cardiology | | | | 2018 | visit | | | | +--------+ + + + + | 03/24/ | Office | Cardiology | Jenny, | | | 2018 | Visit | | ADARSH [address] | | | | | | [place], | | | | | | [place] [address] | | | | | | [phone] | | | | | | | | +--------+ + + + + as of this encounter Visit Diagnoses + + | Diagnosis | + + | Coronary 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, angina presence unspecified, unspecified vessel or lesion | | type, unspecified whether kaw or transplanted heart - Primary | + +"
--- OUTSIDE RECORDS SUMMARY | ~2018-12-10 | XMS | Encounter Summary ---
Demographics + + + | Address | [address] | | | [place] [address] | + + + | Home Phone [...] [place] | | | | | [address] | | + + + + + Care Team Providers + +------+ + | Care Medical Staffing Coordinator Name | Role | Phone | [...] | | CARDIOLOGY [address] | [address] | | | | | [place], | [place], | | | | | [place] [address] | [place] [address] | | | | | [phone] | [phone] | | | | | | | [...] Visit | Rehabilitation | MD [address] | | | | | | [place], | | | | | | [place] [address] | | | | | | [phone] | | | | | | | | +--------+ + + + + | 12/16/ | Office | Cardiac | Randy Figueroa, | | | 2018 | Visit | Rehabilitation | MD [address] | | | | | | [place], | | | | | | [place] [address] | | | | | | [phone] | | | | | | | | +--------+ + + + + | 12/21/ | Office | Cardiac | Randy Figueroa, | | | 2018 | Visit | Rehabilitation | MD [address] | | | | | | [place], | | | | | | [place] [address] | | | | | | [phone] | | | | | | | | +--------+ + + + + | 12/23/ | Office | Cardiac | Randy Figueroa, | | | 2018 | Visit | Rehabilitation | MD [address] | | | | | | [place], | | | | | | [place] [address] | | | | | | [phone] | | | | | | | | +--------+ + + + + | 12/28/ | Office | Cardiac | Randy Figueroa, | | | 2018 | Visit | Rehabilitation | MD [address] | | | | | | [place], | | | | | | [place] [address] | | | | | | [phone] | | | | | | | | +--------+ + + + + | 12/30/ | Office | Cardiac | Randy Figueroa, | | | 2018 | Visit | Rehabilitation | MD [address] | | | | | | [place], | | | | | | [place] [address] | | | | | | [phone] | | | | | | | | +--------+ + + + + | 01/04/ | Office | Cardiac | Randy Figueroa, | | | 2018 | Visit | Rehabilitation | MD [address] | | | | | | [place], | | | | | | [place] [address] | | | | | | [phone] | | | | | | | | +--------+ + + + + | 01/06/ | Office | Cardiac | Randy Figueroa, | | | 2018 | Visit | Rehabilitation | MD [address] | | | | | | [place], | | | | | | [place] [address] | | | | | | [phone] | | | | | | | | +--------+ + + + + | 01/11/ | Office | Cardiac | Randy Figueroa, | | | 2018 | Visit | Rehabilitation | MD [address] | | | | | | [place], | | | | | | [place] [address] | | | | | | [phone] | | | | | | | [...] | | | | | | [place] [address] | | | | | | [phone] | | | | | | | | +--------+ + + + + as of this encounter Visit Diagnoses Not on filein this encounter"
--- OUTSIDE RECORDS SUMMARY | ~2018-12-10 | XMS | Encounter Summary ---
Demographics + + + | Address | [address] | | | [place] [address] | + + + | Home Phone [...] | [place] | | | | | [address] | | + + + + + Care Team Providers + +------+ + | Care Technology Lead Name | Role | Phone | + [...] | | | involving | [address] [place] | | | | | havasupai | [place] | [place] | | | | | coronary | [address] | [address] | | | | | artery of | Phone: | Phone: | | | | | havasupai heart | [phone] | [phone] | | | | | without | Fax: | Fax: | | | | | angina | [phone] | [phone] | | | | | pectoris | | | + + + + + + + Encounter Details +--------+---------+ + + + | Date | Type | Department | Care Team | Description | +--------+---------+ + + + | 10/28/ | Office | [facility] | Randy Figueroa, | Coronary artery | | 2019 | Visit | MED CTR CARDIAC | MD [address] | disease, angina | | | | REHABILITATION [address], | presence | | | | [address] [place] | [place] [address] | unspecified, | | | | [place] [address] | [phone] | unspecified vessel | | | | [phone] | | or lesion type, | | | | | | unspecified whether | | | | | | havasupai or | | | | | | [...] may be different from the or iginal. [facility] CARDIAC REHABILITATION [address] [place] [address] Cardiac Rehab Date: 10/28/2018 Patient Information Patient Name: Bob Will Date of : 1955 Age: 62 y.o. Encounter Diagnoses Code Name Primary? I25.10 Coronary 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, angina presence unspecified, unspecified vessel or lesi on type, unspecified whether havasupai or transplanted heart Yes Z98.61 Post PTCA [...] | | | | | | [place] [address] | | | | | | [phone] | | | | | | | | +--------+ + + + + | 12/16/ | Office | Cardiac | Randy Figueroa, | | | 2018 | Visit | Rehabilitation | MD [address] | | | | | | [place], | | | | | | [place] [address] | | | | | | [phone] | | | | | | | | +--------+ + + + + | 12/21/ | Office | Cardiac | Randy Figueroa, | | | 2018 | Visit | Rehabilitation | MD [address] | | | | | | [place], | | | | | | [place] [address] | | | | | | [phone] | | | | | | | | +--------+ + + + + | 12/23/ | Office | Cardiac | Randy Figueroa, | | | 2018 | Visit | Rehabilitation | MD [address] | | | | | | [place], | | | | | | [place] [address] | | | | | | [phone] | | | | | | | | +--------+ + + + + | 12/28/ | Office | Cardiac | Randy Figueroa, | | | 2018 | Visit | Rehabilitation | MD [address] | | | | | | [place], | | | | | | [place] [address] | | | | | | [phone] | | | | | | | | +--------+ + + + + | 12/30/ | Office | Cardiac | Randy Figueroa, | | | 2018 | Visit | Rehabilitation | MD [address] | | | | | | [place], | | | | | | [place] [address] | | | | | | [phone] | | | | | | | | +--------+ + + + + | 01/04/ | Office | Cardiac | Randy Figueroa, | | | 2018 | Visit | Rehabilitation | MD [address] | | | | | | [place], | | | | | | [place] [address] | | | | | | [phone] | | | | | | | | +--------+ + + + + | 01/06/ | Office | Cardiac | Randy Figueroa, | | | 2018 | Visit | Rehabilitation | MD [address] | | | | | | [place], | | | | | | [place] [address] | | | | | | [phone] | | | | | | | | +--------+ + + + + | 01/11/ | Office | Cardiac | Randy Figueroa, | | | 2018 | Visit | Rehabilitation | MD [address] | | | | | | [place], | | | | | | [place] [address] | | | | | | [phone] | | | | | | | | +--------+ + + + + | 03/24/ | Procedure | Cardiology | | | | 2018 | visit | | | | +--------+ + + + + | 03/24/ | Office | Cardiology | Jenny, | | | 2018 | Visit | | ADARSH Santo [address] | | | | | | [place], | | | | | | [place] [address] | | | | | | [phone] | | | | | | | | +--------+ + + + + as of this encounter Visit Diagnoses + + | Diagnosis | + + | Coronary 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, angina presence unspecified, unspecified vessel or lesion | | type, unspecified whether havasupai or transplanted heart - Primary | + + | Post PTCA | + + | Postsurgical percutaneous transluminal coronary angioplasty status | + +"
--- OUTSIDE RECORDS SUMMARY | ~2018-12-10 | XMS | Encounter Summary ---
Demographics + + + | Address | [address] | | | [place] [address] | + + + | Home Phone [...] | [place] | | | | | [address] | | + + + + + Care Team Providers + +------+ + | Care Church Supervisor Name | Role | Phone | [...] | Specialty | Cardiac | Diagnoses | [facility], [facility] | | | Services | Rehabilitatio | Coronary | Janel | | | | Required | n | artery | ADARSH Jacobs | Rehabilitatio | | | | | disease | [address] | n [address] | | | | | involving | [address] | [address] [place] | | | | | cahto | [place], [place] | [place] | | | | | coronary | [address] | [address] | | | | | artery of | Phone: | Phone: | | | | | cahto heart | [phone] | [phone] | | | | | without | Fax: | Fax: | | | | | angina | [phone] | [phone] | | | | | pectoris | | | + + + + + + + Encounter Details +--------+---------+ + + + | Date | Type | Department | Care Team | Description | +--------+---------+ + + + | 10/21/ | Office | [facility] | Randy Figueroa, | Coronary artery | | 2019 | Visit | MED CTR CARDIAC | MD [address] | disease, angina | | | | REHABILITATION [address] [place], | presence | | | | [address] [place] | [place] [address] | unspecified, | | | | [place] [address] | [phone] | unspecified vessel | | | | [phone] | | or lesion type, | | | | | | unspecified whether | | | | | | cahto or | | | | | | [...] of this encounter Progress Notes Ana Thomas, CENTER DIRECTOR - 10/21/2018 1000 PSTFormatting of this note may be different from the original. [facility] CTR CARDIAC REHABILITATION [address] [facility] [address] Cardiac Rehab Date: 10/21/2018 Patient Information Patient Name: Bob Will Date of : 1955 Age: 62 y.o. Encounter Diagnoses Code Name Primary? I25.10 Coronary 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, angina presence unspecified, unspecified vessel or lesi on type, unspecified whether cahto or transplanted heart Yes Number of Visits [...] which is much higher than Ashok's norm. monitor car operator was placed. No significant change noted from [...] had came directly [place] rehab [place] the [place] where changes in medication was made. Ashok states they stopped his Entresto and increased Lasix to two tabs daily. also notified to [facility] Ashok. Any abnormal vital signs or [...] Visit | Rehabilitation | MD [address] | | | | | | [place], | | | | | | [place] [address] | | | | | | [phone] | | | | | | | | +--------+ + + + + | 12/16/ | Office | Cardiac | Randy Figueroa, | | | 2018 | Visit | Rehabilitation | MD [address] | | | | | | [place], | | | | | | [place] [address] | | | | | | [phone] | | | | | | | | +--------+ + + + + | 12/21/ | Office | Cardiac | Randy Figueroa, | | | 2018 | Visit | Rehabilitation | MD [address] | | | | | | [place], | | | | | | [place] [address] | | | | | | [phone] | | | | | | | | +--------+ + + + + | 12/23/ | Office | Cardiac | Randy Figueroa, | | | 2018 | Visit | Rehabilitation | MD [address] | | | | | | [place], | | | | | | [place] [address] | | | | | | [phone] | | | | | | | | +--------+ + + + + | 12/28/ | Office | Cardiac | Randy Figueroa, | | | 2018 | Visit | Rehabilitation | MD [address] | | | | | | [place], | | | | | | [place] [address] | | | | | | [phone] | | | | | | | | +--------+ + + + + | 12/30/ | Office | Cardiac | Randy Figueroa, | | | 2018 | Visit | Rehabilitation | MD [address] | | | | | | [place], | | | | | | [place] [address] | | | | | | [phone] | | | | | | | | +--------+ + + + + | 01/04/ | Office | Cardiac | Randy Figueroa, | | | 2018 | Visit | Rehabilitation | MD [address] | | | | | | [place], | | | | | | [place] [address] | | | | | | [phone] | | | | | | | | +--------+ + + + + | 01/06/ | Office | Cardiac | Randy Figueroa, | | | 2018 | Visit | Rehabilitation | MD [address] | | | | | | [place], | | | | | | [place] [address] | | | | | | [phone] | | | | | | | | +--------+ + + + + | 01/11/ | Office | Cardiac | Randy Figueroa, | | | 2018 | Visit | Rehabilitation | MD [address] | | | | | | [place], | | | | | | [place] [address] | | | | | | [phone] | | | | | | | | +--------+ + + + + | 03/24/ | Procedure | Cardiology | | | | 2018 | visit | | | | +--------+ + + + + | 03/24/ | Office | Cardiology | Jenny, | | | 2018 | Visit | | ADARSH Santo [address] | | | | | | [place], | | | | | | [place] [address] | | | | | | [phone] | | | | | | | | +--------+ + + + + as of this encounter Visit Diagnoses + + | Diagnosis | + + | Coronary 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, angina presence unspecified, unspecified vessel or lesion | | type, unspecified whether cahto or transplanted heart - Primary | + +"
--- OUTSIDE RECORDS SUMMARY | ~2018-12-10 | XMS | Encounter Summary ---
Demographics + + + | Address | [address] | | | [place] [address] | + + + | Home Phone [...] [place] | | | | | [address] | | + + + + + Care Team Providers + +------+ + | Care Vertical Roll Operator Name | Role | Phone [...] + + | 10/07/ | Telephone | [facility] | Jenny, | Blood Pressure | | 2019 | | CARDIOLOGY [address] | [place], ROAD MANAGER [address] | | | | | [place], | [place], | | | | | [place] [address] | [place] [address] | | | | | [phone] | [phone] | | | | | | | [...] | Visit | Rehabilitation | MD [address] | | | | | | [place], | | | | | | [place] [address] | | | | | | [phone] | | | | | | | | +--------+ + + + + | 12/16/ | Office | Cardiac | Randy Figueroa, | | | 2018 | Visit | Rehabilitation | MD [address] | | | | | | [place], | | | | | | [place] [address] | | | | | | [phone] | | | | | | | | +--------+ + + + + | 12/21/ | Office | Cardiac | Randy Figueroa, | | | 2018 | Visit | Rehabilitation | MD [address] | | | | | | [place], | | | | | | [place] [address] | | | | | | [phone] | | | | | | | | +--------+ + + + + | 12/23/ | Office | Cardiac | Randy Figueroa, | | | 2018 | Visit | Rehabilitation | MD [address] [place] | | | | | | [place], | | | | | | [place] [address] | | | | | | [phone] | | | | | | | | +--------+ + + + + | 12/28/ | Office | Cardiac | Randy Figueroa, | | | 2018 | Visit | Rehabilitation | MD [address] [place] | | | | | | [place], | | | | | | [place] [address] | | | | | | [phone] | | | | | | | | +--------+ + + + + | 12/30/ | Office | Cardiac | Randy Figueroa, | | | 2018 | Visit | Rehabilitation | MD [address] [place] | | | | | | [place], | | | | | | [place] [address] | | | | | | [phone] | | | | | | | | +--------+ + + + + | 01/04/ | Office | Cardiac | Randy Figueroa, | | | 2018 | Visit | Rehabilitation | MD [address] [place] | | | | | | [place], | | | | | | [place] [address] | | | | | | [phone] | | | | | | | | +--------+ + + + + | 01/06/ | Office | Cardiac | Randy Figueroa, | | | 2018 | Visit | Rehabilitation | MD [address] [place] | | | | | | [place], | | | | | | [place] [address] | | | | | | [phone] | | | | | | | | +--------+ + + + + | 01/11/ | Office | Cardiac | Randy Figueroa, | | | 2018 | Visit | Rehabilitation | MD [address] | | | | | | [place], | | | | | | [place] [address] | | | | | | [phone] | | | | | | | [...] | | | | | | [place] [address] | | | | | | [phone] | | | | | | | | +--------+ + + + + as of this encounter Visit Diagnoses Not on filein this encounter"
--- OUTSIDE RECORDS SUMMARY | ~2018-12-10 | XMS | Encounter Summary ---
Demographics + + + | Address | [address] | | | [place] [address] | + + + | Home Phone [...] | [place] | | | | | [address] | | + + + + + Care Team Providers + +------+ + | Care Shipping Manager Name | Role | Phone | [...] | | | involving | [address] [place] | | | | | [place] | [place] | [place] | | | | | coronary | [address] | [address] | | | | | artery of | Phone: | Phone: | | | | | [place] heart | [phone] | [phone] | | | | | without | Fax: | Fax: | | | | | angina | [phone] | [phone] | | | | | pectoris | | | + + + + + + + Encounter Details +--------+---------+ + + + | Date | Type | Department | Care Team | Description | +--------+---------+ + + + | 11/25/ | Office | [facility] | Carolina Randy, | Coronary artery | | 2019 | Visit | MED CTR CARDIAC | MD [address] | disease involving | | | | REHABILITATION [address], | [place] coronary | | | | [address] [place] | [place] [address] | artery of [place] | | | | [place] [address] | [phone] | heart without angina | | | | [phone] | | pectoris (Primary | | | [...] may be differ ent from the original. [facility] CTR CARDIAC REHABILITATION [address] [place] [address] Cardiac Rehab Date: 11/25/2018 Patient Information Patient [...] Visit | Rehabilitation | MD [address] | | | | | | [place], | | | | | | [place] [address] | | | | | | [phone] | | | | | | | | +--------+ + + + + | 12/16/ | Office | Cardiac | Randy Figueroa, | | | 2018 | Visit | Rehabilitation | MD [address] | | | | | | [place], | | | | | | [place] [address] | | | | | | [phone] | | | | | | | | +--------+ + + + + | 12/21/ | Office | Cardiac | Randy Figueroa, | | | 2018 | Visit | Rehabilitation | MD [address] | | | | | | [place], | | | | | | [place] [address] | | | | | | [phone] | | | | | | | | +--------+ + + + + | 12/23/ | Office | Cardiac | Randy Figueroa, | | | 2018 | Visit | Rehabilitation | MD [address] | | | | | | [place], | | | | | | [place] [address] | | | | | | [phone] | | | | | | | | +--------+ + + + + | 12/28/ | Office | Cardiac | Randy Figueroa, | | | 2018 | Visit | Rehabilitation | MD [address] | | | | | | [place], | | | | | | [place] [address] | | | | | | [phone] | | | | | | | | +--------+ + + + + | 12/30/ | Office | Cardiac | Randy Figueroa, | | | 2018 | Visit | Rehabilitation | MD [address] | | | | | | [place], | | | | | | [place] [address] | | | | | | [phone] | | | | | | | | +--------+ + + + + | 01/04/ | Office | Cardiac | Randy Figueroa, | | | 2018 | Visit | Rehabilitation | MD [address] | | | | | | [place], | | | | | | [place] [address] | | | | | | [phone] | | | | | | | | +--------+ + + + + | 01/06/ | Office | Cardiac | Randy Figueroa, | | | 2018 | Visit | Rehabilitation | MD [address] | | | | | | [place], | | | | | | [place] [address] | | | | | | [phone] | | | | | | | | +--------+ + + + + | 01/11/ | Office | Cardiac | Randy Figueroa, | | | 2018 | Visit | Rehabilitation | MD [address] | | | | | | [place], | | | | | | [place] [address] | | | | | | [phone] | | | | | | | | +--------+ + + + + | 03/24/ | Procedure | Cardiology | | | | 2018 | visit | | | | +--------+ + + + + | 03/24/ | Office | Cardiology | Chaplin, | | | 2019 | Visit | | ADARSH Santo [address] | | | | | | [place], | | | | | | [place] [address] | | | | | | [phone] | | | | | | | | +--------+ + + + + as of this encounter Visit Diagnoses + + | Diagnosis | + + | Coronary 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 involving [place] coronary artery of [place] heart without | | angina pectoris - Primary | + + | Post PTCA | + + | Postsurgical percutaneous transluminal coronary angioplasty status | + +"
--- OUTSIDE RECORDS SUMMARY | ~2018-12-10 | XMS | Encounter Summary ---
Demographics + + + | Address | [address] | | | [place] [address] | + + + | Home Phone [...] [place] | | | | | [address] | | + + + + + Care Team Providers + +------+ + | Care Principal Embedded Software Engineer Name | Role | Phone | + +------+ + | Young Haque DO | PCP | | + +------+ + Encounter Details +--------+ + + + + | Date | Type | Department | Care Team | Description | +--------+ + + + + | 03/28/ | Abstract | [facility] [place] | Jenny, | | | 2019 | | CARDIOLOGY [address] | [address] DOPE EDGER [address] | | | | | [place], | [place], | | | | | [place] [address] | [place] [address] | | | | | [phone] | [phone] | | | | | | | [...] Visit | Rehabilitation | MD [address] [place] | | | | | | [place], | | | | | | [place] [address] | | | | | | [phone] | | | | | | | | +--------+ + + + + | 12/16/ | Office | Cardiac | Randy Figueroa, | | | 2018 | Visit | Rehabilitation | MD [address] [place] | | | | | | [place], | | | | | | [place] [address] | | | | | | [phone] | | | | | | | | +--------+ + + + + | 12/21/ | Office | Cardiac | Randy Figueroa, | | | 2018 | Visit | Rehabilitation | MD [address] [place] | | | | | | [place], | | | | | | [place] [address] | | | | | | [phone] | | | | | | | | +--------+ + + + + | 12/23/ | Office | Cardiac | Randy Figueroa, | | | 2018 | Visit | Rehabilitation | MD [address] [place] | | | | | | [place], | | | | | | [place] [address] | | | | | | [phone] | | | | | | | | +--------+ + + + + | 12/28/ | Office | Cardiac | Randy Figueroa, | | | 2018 | Visit | Rehabilitation | MD [address] [place] | | | | | | [place], | | | | | | [place] [address] | | | | | | [phone] | | | | | | | | +--------+ + + + + | 12/30/ | Office | Cardiac | Randy Figueroa, | | | 2018 | Visit | Rehabilitation | MD [address] [place] | | | | | | [place], | | | | | | [place] [address] | | | | | | [phone] | | | | | | | | +--------+ + + + + | 01/04/ | Office | Cardiac | Randy Figueroa, | | | 2018 | Visit | Rehabilitation | MD [address] | | | | | | [place], | | | | | | [place] [address] | | | | | | [phone] | | | | | | | | +--------+ + + + + | 01/06/ | Office | Cardiac | Randy Figueroa, | | | 2018 | Visit | Rehabilitation | [address] [place] | | | | | | [place], | | | | | | [place] [address] | | | | | | [phone] | | | | | | | | +--------+ + + + + | 01/11/ | Office | Cardiac | Randy Figueroa, | | | 2018 | Visit | Rehabilitation | [address] | | | | | | [place], | | | | | | [place] [address] | | | | | | [phone] | | | | | | | | +--------+ + + + + | 03/24/ | Procedure | Cardiology | | | | 2018 | visit | | | | +--------+ + + + + | 03/24/ | Office | Cardiology | Jenny, | | | 2018 | Visit | | ADARSH Santo [address] | | | | | | [place], | | | | | | [place] [address] | | | | | | [phone] | | | | | | | [...]
--- OUTSIDE RECORDS SUMMARY | ~2018-12-10 | XMS | Encounter Summary ---
Demographics + + + | Address | [address] | | | [place] [address] | + + + | Home Phone [...] | [place] | | | | | [address] | | + + + + + Care Team Providers + +------+ + | Care Shell Plater Name | Role | Phone | + [...] | | Atherosclero | MD Lauro | [address] [place] [address] | | | | | tic heart | [address] | | | | | disease of | [address] | [place], | | | | | [place] | [place], | [place] [address] | | | | | coronary | [place] | Phone: | | | | | artery | [address] | [phone] | | | | | without | Phone: | Fax: | | | | | angina | [phone] | [phone] | | | | | pectoris ST | Fax: | | | | | | elevation | [phone] | | | | | | (STEMI) [...] | Office | [facility] [place] | [place], | PAD (peripheral | | 2019 | Visit | CARDIOLOGY [address] | [place], SUPERVISOR [employer]INTING [address] | 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) | | | | [address] [place], | [place], | ([facility]) (Primary Dx); | | | | [place] [address] | [place] [address] | Benign essential | | | | [phone] | [phone] | hypertension; | | | | | | Fatigue, unspecified | | | | | | type; Acute | | | | | | anterior wall DE | | | | | | (HCC); Coronary | | | | | | 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 | | | | | | involving [place] | | | | | | coronary artery of | | | | | | [place] heart without | | | | | [...] 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 post recen t anterior wall DE, post PTCA and stents of the left main, LAD and LCx on 03/15/17, cardiac sh ock, left atrial appendage thrombus, recent status post stents to, 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 He will do a blood pressure log and bring it to his next appoin [facility]. Since that time, he was seen in [...] least 30 minutes every day at the [facility] in [place] with h is walker. He feels better [...] anterior wall DE Coronary 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 involving [place] coronary artery of [place] heart without angina pectoris Ischemic cardiomyopathy FASHION PHOTOGRAPHER-D (AICD) [employer] 10/16/17 [facility] Stecker Implantable defibrillator reprogramming/check H/O atrial [...] spray QNASL 80 mcg/actuation nasal aerosol spray Lititz 2 sprays every day by intranasal route at bedtime. Cholecalciferol (VITAMIN D-3) 23356 units CAPS Take by mouth Once a [...] 42 mcg (0.06 %) nasal spra y Lititz 2 sprays 3 times a day by [...] 6 BPM Confirmed by FLORY العلي MD ([id number]) on 08/27/2018 6:38:04 AM LAB RESULTS reviewed during visit today primarily from [facility]: LIPID Lab Results Component Value Date [...] 366 (H) 06/10/2018 I reviewed records from [facility] for emergency department visit o n 08/26/2018 which is summarized in the HPI. RESULTS- I reviewed reports from [facility]: Ct Head Wo Contrast Result Date: [...] shock requiring IABP, pressor (dop amine, norepinephrine). [facility] were on divert. Patient wasn' t transferred to [facility]. B. Echocardiogram 03/17/2017 shows LV ejection fraction is severely de creased, visually estimated left ventricular ejection fraction is 20 - 25%, left ventricular systolic thickening is segment allyabnormal,mildly reduced RV systolic function. Normal RV size, no significant valvular abnormalities seen, compared to the most recent exam dated , 03/15/2017, there is no significant changes C. At [facility], patient had another STEMI code 03/29, [...] to follow up closely with a local turret lathe machinist in [place] . He wias dischargeed with a LifeVest [...] we will transfer the patient to [facility] for consideration of urgent coronary revascularizatio [...] He is in class II of the [place] [employer] Association functional class. 2. Ischemic Cardiomyopathy: [...] in the se regions. C. S/P [employer] FASHION PHOTOGRAPHER-D 10-16-17 Dr Darby, [facility]. Ice interrogation today shows one episode [...] will be needing to go back to [place] in the summer. F.Today, 09/21/2018, he has had no increase in fluid retention. There is no leg swelling. He is in class II of the [place] Heart Association functional class. Heart failur e stage C. 3. Ventricular tachycardia: A. Electrophysiology Study 10/16/17 shows positive EP study for induc ible ventricular tachycardia. B.In remote interrogation he had 65 episodes of treated VT. He is n ot on any antiarrhythmic. He is going to be seen in [place] so we will let EP know about [...] week ago. Viry mustafa was after his DE and at the same time patient was having ventricular tachycardia. He was initiated on amiodarone and then discontinued before discharge. The plan is to monitor thro ugh his device and see if this is a problem that needs to be addressed. Patient is not on anticoagulation he was left that way from [facility]. Patient has had several GI bleeds [...] start titrating metoprolol increases as recommended by [facility] ed heart failure team and continue close monitoring of blood pressure. 4. He will follow up in 3 months for office visit and device interrogation, or sooner with concerns. He will have fasting labs prior to visit for lipid profile, CMP and CBC, if not done prior by another provider. Portions of this chart may have been created with [employer] ([employer]) voice recognition software. Occasi onal wrong-word or [...] 2018 | Visit | Rehabilitation | MD aJvid Crespo | | | | | | [place], | | | | | | [place] [address] | | | | | | [phone] | | | | | | | | +--------+ + + + + | 12/16/ | Office | Cardiac | Randy Figueroa, | | | 2018 | Visit | Rehabilitation | MD [address] | | | | | | [place], | | | | | | [place] [address] | | | | | | [phone] | | | | | | | | +--------+ + + + + | 12/21/ | Office | Cardiac | Randy Figueroa, | | | 2018 | Visit | Rehabilitation | MD [address] | | | | | | [place], | | | | | | [place] [address] | | | | | | [phone] | | | | | | | | +--------+ + + + + | 12/23/ | Office | Cardiac | Randy Figueroa, | | | 2018 | Visit | Rehabilitation | MD [address] | | | | | | [place], | | | | | | [place] [address] | | | | | | [phone] | | | | | | | | +--------+ + + + + | 12/28/ | Office | Cardiac | Randy Figueroa, | | | 2018 | Visit | Rehabilitation | MD [address] | | | | | | [place], | | | | | | [place] [address] | | | | | | [phone] | | | | | | | | +--------+ + + + + | 12/30/ | Office | Cardiac | Randy Figueroa, | | | 2018 | Visit | Rehabilitation | MD Javid Rodriguezar | | | | | | [place], | | | | | | [place] [address] | | | | | | [phone] | | | | | | | | +--------+ + + + + | 01/04/ | Office | Cardiac | Randy Figueroa, | | | 2018 | Visit | Rehabilitation | MD [address] | | | | | | [place], | | | | | | [place] [address] | | | | | | [phone] | | | | | | | | +--------+ + + + + | 01/06/ | Office | Cardiac | Randy Figueroa, | | | 2018 | Visit | Rehabilitation | MD [address] | | | | | | [place], | | | | | | [place] [address] | | | | | | [phone] | | | | | | | | +--------+ + + + + | 01/11/ | Office | Cardiac | Randy Figueroa, | | | 2018 | Visit | Rehabilitation | MD Javid Crespo | | | | | | [place], | | | | | | [place] [address] | | | | | | [phone] | | | | | | | | +--------+ + + + + | 03/24/ | Procedure | Cardiology | | | | 2018 | visit | | | | +--------+ + + + + | 03/24/ | Office | Cardiology | Jenny, | | | 2018 | Visit | | ADARSH Santo [address] | | | | | | [place], | | | | | | [place] [address] | | | | | | [phone] | | | | | | | [...] + | Acute anterior wall DE (HCC) | + + | Acute myocardial infarction of other anterior wall, episode of care unspecified | + + | Coronary 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 involving [place] coronary artery of [place] heart without | | angina pectoris | + + | Ischemic cardiomyopathy | + + | Other specified forms of chronic ischemic heart disease | + + | Abdominal aortic aneurysm (AAA) without rupture (HCC) | + + | Mixed hyperlipidemia | + +
--- OUTSIDE RECORDS SUMMARY | ~2018-12-10 | XMS | Encounter Summary ---
Demographics + + + | Address | [address] | | | [place] [address] | + + + | Home Phone [...] [place] | | | | | [address] | | + + + + + Care Team Providers + +------+ + | Care Steel Inspector Name | Role | Phone | + +------+ + | Young Haque DO | PCP | | + +------+ + Encounter Details +--------+ + + + + | Date | Type | Department | Care Team | Description | +--------+ + + + + | 03/28/ | Abstract | [facility] [place] | Jenny, | | | 2019 | | CARDIOLOGY [address] | [place] TRANSFORMER SHOP SUPERVISOR [address] | | | | | [place], | [place], | | | | | [place] [address] | [place] [address] | | | | | [phone] | [phone] | | | | | | | [...] Visit | Rehabilitation | MD [address] | | | | | | [place], | | | | | | [place] [address] | | | | | | [phone] | | | | | | | | +--------+ + + + + | 12/16/ | Office | Cardiac | Randy Figueroa, | | | 2018 | Visit | Rehabilitation | MD [address] | | | | | | [place], | | | | | | [place] [address] | | | | | | [phone] | | | | | | | | +--------+ + + + + | 12/21/ | Office | Cardiac | Randy Figueroa, | | | 2018 | Visit | Rehabilitation | MD [address] | | | | | | [place], | | | | | | [place] [address] | | | | | | [phone] | | | | | | | | +--------+ + + + + | 12/23/ | Office | Cardiac | Randy Figueroa, | | | 2018 | Visit | Rehabilitation | MD [address] | | | | | | [place], | | | | | | [place] [address] | | | | | | [phone] | | | | | | | | +--------+ + + + + | 12/28/ | Office | Cardiac | Randy Figueroa, | | | 2018 | Visit | Rehabilitation | MD [address] | | | | | | [place], | | | | | | [place] [address] | | | | | | [phone] | | | | | | | | +--------+ + + + + | 12/30/ | Office | Cardiac | Randy Figueroa, | | | 2018 | Visit | Rehabilitation | MD [address] | | | | | | [place], | | | | | | [place] [address] | | | | | | [phone] | | | | | | | | +--------+ + + + + | 01/04/ | Office | Cardiac | Randy Figueroa, | | | 2018 | Visit | Rehabilitation | MD Javid Rodriguezar | | | | | | [place], | | | | | | [place] [address] | | | | | | [phone] | | | | | | | | +--------+ + + + + | 01/06/ | Office | Cardiac | Randy Figueroa, | | | 2018 | Visit | Rehabilitation | [address] | | | | | | [place], | | | | | | [place] [address] | | | | | | [phone] | | | | | | | | +--------+ + + + + | 01/11/ | Office | Cardiac | Randy Figueroa, | | | 2018 | Visit | Rehabilitation | [address] | | | | | | [place], | | | | | | [place] [address] | | | | | | [phone] | | | | | | | | +--------+ + + + + | 03/24/ | Procedure | Cardiology | | | | 2018 | visit | | | | +--------+ + + + + | 03/24/ | Office | Cardiology | Jenny, | | | 2018 | Visit | | ADARSH Santo [address] | | | | | | [place], | | | | | | [place] [address] | | | | | | [phone] | | | | | | | [...]
--- OUTSIDE RECORDS SUMMARY | ~2018-12-10 | XMS | Encounter Summary ---
Demographics + + + | Address | [address] | | | [place] [address] | + + + | Home Phone [...] | [place] | | | | | [address] | | + + + + + Care Team Providers + +------+ + | Care Supervisor Drying And Winding Name | Role | Phone | + [...] | | | involving | [address] [place] [place] | | | | | [address] | [place] [address] | [place] | | | | | coronary | [address] | [address] | | | | | artery of | Phone: | Phone: | | | | | campo heart | [phone] | [phone] | | | | | without | Fax: | Fax: | | | | | angina | [phone] | [phone] | | | | | pectoris | | | + + + + + + + Encounter Details +--------+---------+ + + + | Date | Type | Department | Care Team | Description | +--------+---------+ + + + | 11/23/ | Office | [facility] | Rahullindacathy Lindaangusleo, | Acute on chronic | | 2019 | Visit | MED CTR CARDIAC | MD [address] | systolic congestive | | | | REHABILITATION [address] [place], | heart failure (HCC) | | | | [address] [place] | [place] [address] | (Primary Dx) | | | | [place] [address] | [phone] | | | | | [phone] | | | +--------+---------+ + + + [...] may be differ ent from the original. [facility] [address] [facility] [address] Cardiac Rehab Date: 11/23/2018 Patient Information Patient [...] | Visit | Rehabilitation | MD Hua [address]rie | | | | | | [place], | | | | | | [place] [address] | | | | | | [phone] | | | | | | | | +--------+ + + + + | 12/16/ | Office | Cardiac | Randy Figueroa, | | | 2018 | Visit | Rehabilitation | MD [address] | | | | | | [place], | | | | | | [place] [address] | | | | | | [phone] | | | | | | | | +--------+ + + + + | 12/21/ | Office | Cardiac | Randy Figueroa, | | | 2018 | Visit | Rehabilitation | MD [address] | | | | | | [place], | | | | | | [place] [address] | | | | | | [phone] | | | | | | | | +--------+ + + + + | 12/23/ | Office | Cardiac | Randy Figueroa, | | | 2018 | Visit | Rehabilitation | MD [address] | | | | | | [place], | | | | | | [place] [address] | | | | | | [phone] | | | | | | | | +--------+ + + + + | 12/28/ | Office | Cardiac | Randy Figueroa, | | | 2018 | Visit | Rehabilitation | MD [address] | | | | | | [place], | | | | | | [place] [address] | | | | | | [phone] | | | | | | | | +--------+ + + + + | 12/30/ | Office | Cardiac | Randy Figueroa, | | | 2018 | Visit | Rehabilitation | MD [address] | | | | | | [place], | | | | | | [place] [address] | | | | | | [phone] | | | | | | | | +--------+ + + + + | 01/04/ | Office | Cardiac | Randy Figueroa, | | | 2018 | Visit | Rehabilitation | MD [address] | | | | | | [place], | | | | | | [place] [address] | | | | | | [phone] | | | | | | | | +--------+ + + + + | 01/06/ | Office | Cardiac | Randy Figueroa, | | | 2018 | Visit | Rehabilitation | MD Javid Crespo | | | | | | [place], | | | | | | [place] [address] | | | | | | [phone] | | | | | | | | +--------+ + + + + | 01/11/ | Office | Cardiac | Randy Figueroa, | | | 2018 | Visit | Rehabilitation | MD [address]av[address] | | | | | | [place], | | | | | | [place] [address] | | | | | | [phone] | | | | | | | | +--------+ + + + + | 03/24/ | Procedure | Cardiology | | | | 2018 | visit | | | | +--------+ + + + + | 03/24/ | Office | Cardiology | Jenny, | | | 2019 | Visit | | ADASRH Santo [address] | | | | | | [place], | | | | | | [place] [address] | | | | | | [phone] | | | | | | | | +--------+ + + + + as of this encounter Visit Diagnoses + + | Diagnosis | + + | Acute on chronic systolic congestive heart failure (HCC) - Primary | + + | Acute on chronic systolic heart failure | + +"
[~2018-12-10 06:53] MED LIST changes: +NEURONTIN100 MG PO; +TORSEMIDE10 MG PO
--- OUTSIDE RECORDS SUMMARY | 2018-12-10 06:56 | XMS ---
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 Security Document Controller Events No recent Security Events currently on file CRITERIA MET - Group Notification - 6 ED Visits in 6 Months - [facility] - Has Care Guidelines - PDMP CARE PROVIDERS Guido Lainez Internal Medicine: Pulmonary Disease 10/18/2018-Current PHONE: Unknown KAREN AYALA Family Medicine: Sports Medicine 06/22/2018-Current PHONE: Unknown LUCY HERNANDEZ Primary Care 10/22/2015-Current PHONE: Unknown Ananda has no Care Guidelines for this patient. Care History Medical/Surgical 10/18/2018 [facility] - Patient is currently established with [facility]. If patient is seen in the ED during business hours. Please contact CHWs at [facility]. Care Recommendation: This patient has had 5 or more Emergency Department visits in the last 12 months.\T\nbsp; Patient requires education on the scope and purpose of the ED as an acute care provider not a Primary Care Provider and should not be utilized for chronic conditions.\T\nbsp; These are guidelines and the provider should exercise clinical judgment when providing care. 12/07/2017 [facility] - Patient is currently utilizing PCP Dr Matson and has been referred to a snailer. - All chronic conditions please refer to [...] ED please contact Community Health WorkerLamar at [phone]. These are guidelines and the provider should exercise clinical judgment when providing care. E.D. VISIT COUNT (12 MO.) 1 [facility] 12 [facility] TOTAL 14 NOTE: Visits indicate total known visits. ED/UCC VISIT TRACKING (12 MO.) 12/10/2018 06:53 [facility] TYPE: Emergency COMPLAINT: - SOB 11/02/2018 19:26 [facility] TYPE: Emergency COMPLAINT: - SOB 10/29/2018 07:32 [facility] TYPE: Emergency COMPLAINT: - CHEST PAIN DIAGNOSES: - Pure hypercholesterolemia, unspecified - Old myocardial infarction - Chronic obstructive pulmonary disease, unspecified - Essential (primary) hypertension - Personal history of nicotine dependence - Chest pain, unspecified - MCC (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 - Presence of coronary angioplasty implant and graft - Other rn long term care (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 - Acquired absence of other specified parts of digestive tract - Presence of cardiac pacemaker 10/16/2018 06:03 [facility] TYPE: Emergency COMPLAINT: - SOB 08/26/2018 11:00 [facility] TYPE: Emergency DIAGNOSES: - low bp - Adverse effect of beta-adrenoreceptor antagonists, initial encounter - Weakness - Hypotension 08/18/2018 00:07 [facility] TYPE: Emergency COMPLAINT: - SOB DIAGNOSES: - Hypertensive heart disease with heart failure - Disorder of kidney and ureter, unspecified - Personal history of nicotine dependence - Other rn long term care (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 - Heart failure, unspecified - Shortness of breath - Old myocardial infarction - Chronic obstructive pulmonary disease with (acute) exacerbation - Pure hypercholesterolemia, unspecified 08/09/2018 09:56 [facility] TYPE: Emergency COMPLAINT: - L HIP PAIN/NO INJURY DIAGNOSES: - Pain in left hip - Sciatica, left side - Pure hypercholesterolemia, unspecified - Essential (primary) hypertension - Other shelter (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 - Old myocardial infarction 06/26/2018 06:43 [facility] TYPE: Emergency COMPLAINT: - SOB DIAGNOSES: - Heart failure, unspecified - Shortness of breath - Hypertensive heart disease with heart failure - Chronic obstructive pulmonary disease with (acute) exacerbation - Other shelter (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 06/17/2018 02:41 [facility] TYPE: Emergency COMPLAINT: - SOB DIAGNOSES: - Other shelter (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 - Dyspnea, unspecified - Essential (primary) hypertension - Presence of coronary angioplasty implant and graft - MCC (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 - Personal history of nicotine dependence - Shortness of breath [facility]2018 07:[facility]: Emergency DIAGNOSES: - Chest pain, unspecified - Non-ST elevation (NSTEMI) myocardial infarction - Acute pulmonary edema - Shortness of Breath 05/01/2018 03:23 [facility] TYPE: Emergency COMPLAINT: - SOB DIAGNOSES: - Shortness of breath - MCC (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 - Non-ST elevation (NSTEMI) myocardial infarction - Heart failure, unspecified - Other rn long term care (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 - Personal history of nicotine dependence 04/17/2018 06:31 [facility] TYPE: Emergency COMPLAINT: - CHEST PAIN DIAGNOSES: - Personal history of nicotine dependence - Chest pain, unspecified - Precordial pain 01/12/2018 21:19 [facility] TYPE: Emergency COMPLAINT: - NECK PAIN,FLUTTERING HEARTBEAT DIAGNOSES: - Palpitations - rn long term care (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 - Other shelter (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 - Personal history of nicotine dependence - Essential (primary) hypertension - Cervicalgia 12/16/2017 11:59 [facility] TYPE: Emergency COMPLAINT: - COUGH DIAGNOSES: - Other rn long term care (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 - [employer] (CURRENT) USE OF ORAL HYPOGLYCEMIC DRUGS - Essential (primary) hypertension - rn long term care (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 - Personal history of nicotine dependence - Bronchitis, not specified as acute or chronic - Old myocardial infarction - PURE HYPERCHOLESTEROLEMIA, UNSPECIFIED - Cough - rn long term care (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 of oral hypoglycemic drugs - Pure hypercholesterolemia, unspecified INPATIENT VISIT TRACKING (12 MO.) 11/02/2018 22:09 [facility] TYPE: Medical Surgical COMPLAINT: - DECOMPENSATED HEART FAILURE DIAGNOSES: - Hyperlipidemia, unspecified - Type 2 diabetes mellitus with diabetic chronic kidney disease - Chronic kidney disease, stage 3 (moderate) - Coronary angioplasty status - Personal history of nicotine dependence - Presence of automatic (implantable) cardiac defibrillator - rn long term care (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 of opiate analgesic - Psychophysiologic insomnia - Chronic pain syndrome - Old myocardial infarction - MCC (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 of antithrombotics/antiplatelets - Chronic obstructive pulmonary disease, unspecified - Idiopathic sleep related nonobstructive alveolar hypoventilation - Gastro-esophageal reflux disease without esophagitis - Acute on chronic systolic (congestive) heart failure - Acute respiratory failure with hypoxia - MCC (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 of oral hypoglycemic drugs - rn long term care (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 - Other rn long term care (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 - Atherosclerotic heart disease of [place] coronary artery without angina pectoris 10/16/2018 06:04 [facility] TYPE: Medical Surgical COMPLAINT: - DECOMPENSATED HEART FAILURE DIAGNOSES: - Ischemic cardiomyopathy - Type 2 diabetes mellitus with diabetic chronic kidney disease - Chronic pain syndrome - Dependence on supplemental oxygen - Unspecified inflammatory spondylopathy, cervical region - Chronic obstructive pulmonary disease, unspecified - rn long term care (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 of oral hypoglycemic drugs - Personal history of nicotine dependence - MCC (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 - Presence of automatic (implantable) cardiac defibrillator - Other rn long term care (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 - Acute on chronic systolic (congestive) heart failure - Presence of coronary angioplasty implant and graft - Atherosclerotic heart disease of [place] coronary artery without angina pectoris - Old myocardial infarction - Chronic respiratory failure with hypoxia - Shortness of breath - Gastro-esophageal reflux disease without esophagitis - rn long term care (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 of opiate analgesic - Hypertensive chronic kidney disease with stage 1 through stage 4 chronic kidney disease, or unspecified chronic kidney disease - rn long term care (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 of antithrombotics/antiplatelets - Chronic kidney disease, stage 3 (moderate) - Hyperlipidemia, unspecified 05/13/2018 16:21 [facility] TYPE: Cardiology DIAGNOSES: - Heart failure, unspecified - Atherosclerotic heart disease of [place] coronary artery without angina pectoris - Family history of other specified conditions - Atherosclerotic heart disease of [place] coronary artery with other forms of angina pectoris - Chronic systolic (congestive) heart failure - Coronary Artery Disease - Other forms of angina pectoris - Ischemic cardiomyopathy - Other forms of dyspnea - Essential (primary) hypertension - Presence of automatic (implantable) cardiac defibrillator 05/01/2018 07:47 [facility] DIAGNOSES: - Acute pulmonary edema - Non-ST elevation (NSTEMI) myocardial infarction - Chest pain, unspecified - Illness, unspecified [email or web address]
--- NOTE | 2018-12-10 13:26 | EKG ---
[facility] [address] [place] [address] Signed Atrial-sensed ventricular-paced rhythm with prolonged AV conduction Abnormal ECG When compared with ECG of 02-NOV-2018 19:40, Vent. rate has decreased BY 7 BPM Confirmed by HUEY GORDON DO ([id number]) on 12/10/2018 1:26:31 PM Electronically Signed By: HUEY GORDON DO 12/10/18 1326 PATIENT NAME: RON MCKEON RACHEL Electrocardiogram DATE OF : 53 PHYSICIAN: HUEY GORDON DO REPORT #: [id number] REPORT IS CONFIDENTIAL AND NOT TO BE RELEASED WITHOUT AUTHORIZATION
== END 2018-12-10 12:30 | disposition left against medical advice (07) ==
LOC: ED 06:53
DX: I11.0 Hypertensive heart disease with heart failure (principal); I50.9 Heart failure, unspecified; I25.2 Old myocardial infarction; E78.00 Pure hypercholesterolemia, unspecified; J44.9 Chronic obstructive pulmonary disease, unspecified; Z95.810 Presence of automatic (implantable) cardiac defibrillator; Z95.5 Presence of coronary angioplasty implant and graft; Z87.891 Personal history of nicotine dependence; Z90.49 Acquired absence of other specified parts of digestive tract; Z79.899 Other long term (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; Z79.82 Long term (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
CPT/HCPCS: 36415; 71045; 80053; 83735; 83880; 84484; 85025; 93005; 93010; 94640; 96361; 96374; 96375; 99285-25; J2930; J7040

== ENCOUNTER 2018-12-11 04:03 | Inpatient (IN) | payer OTHER ==
[~2018-12-11] VITALS: Ht 175.3 cm; Wt 91.4 kg
--- OUTSIDE RECORDS SUMMARY | ~2018-12-11 | XMS | Encounter Summary ---
Demographics + + + | Address | [address] | | | [place] [address] | + + + | Home Phone | | + + + | Preferred Language | Unknown | + + + | Marital Status | | + + + | Tenriism Affiliation | Unknown | + + + | Race | Unknown | + + + | Ethnic Group | Unknown | + + + Author + + + | Author | [facility] | | | and [place] | + + + | Organization | [facility] | | | and [place] | + + + | Address | Unknown | + + + | Phone | Unavailable | + + + Support + + + + + | Name | Relationship | Address | Phone | + + + + + | [place] Will | ECON | [place] | | | | | [address] | | + + + + + Care Team Providers + +------+ + | Care Swimming Pool Salesperson Name | Role | Phone | + +------+ + | Young Haque DO | PCP | | + +------+ + Reason for Visit + + + | Reason | Comments | + + + | Blood Pressure | | + + + Encounter Details +--------+ + + + + | Date | Type | Department | Care Team | Description | +--------+ + + + + | 11/18/ | Telephone | [facility] | Jenny, | Blood Pressure | | 2019 | | CARDIOLOGY [address] | [place], 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, | | | | | | [place] [address] | | | | | | [phone] | | | | | | | | +--------+ + + + + | 12/16/ | Office | Cardiac | Randy Figueroa, | | | 2018 | Visit | Rehabilitation | MD [address]av[address] | | | | | | [place], | | | | | | [place] [address] | | | | | | [phone] | | | | | | | | +--------+ + + + + | 12/21/ | Office | Cardiac | Randy Figueroa, | | | 2018 | Visit | Rehabilitation | MD [address] | | | | | | [place], | | | | | | [place] [address] | | | | | | [phone] | | | | | | | | +--------+ + + + + | 12/23/ | Office | Cardiac | Randy Figueroa, | | | 2018 | Visit | Rehabilitation | MD [address] | | | | | | [place], | | | | | | [place] [address] | | | | | | [phone] | | | | | | | | +--------+ + + + + | 12/28/ | Office | Cardiac | Randy Figueroa, | | | 2018 | Visit | Rehabilitation | MD [address] | | | | | | [place], | | | | | | [place] [address] | | | | | | [phone] | | | | | | | | +--------+ + + + + | 12/30/ | Office | Cardiac | Randy Figueroa, | | | 2018 | Visit | Rehabilitation | MD [address] | | | | | | [place], | | | | | | [place] [address] | | | | | | [phone] | | | | | | | | +--------+ + + + + | 01/04/ | Office | Cardiac | Randy Figueroa, | | | 2018 | Visit | Rehabilitation | MD [address] | | | | | | [place], | | | | | | [place] [address] | | | | | | [phone] | | | | | | | | +--------+ + + + + | 01/06/ | Office | Cardiac | Randy Figueroa, | | | 2018 | Visit | Rehabilitation | MD [address] | | | | | | [place], | | | | | | [place] [address] | | | | | | [phone] | | | | | | | | +--------+ + + + + | 01/11/ | Office | Cardiac | Randy Figueroa, | | | 2018 | Visit | Rehabilitation | MD [address] | | | | | | [place], | | | | | | [place] [address] | | | | | | [phone] | | | | | | | [...] [place], | | | | | | [place] [address] | | | | | | [phone] | | | | | | | | +--------+ + + + + as of this encounter Visit Diagnoses Not on filein this encounter"
--- OUTSIDE RECORDS SUMMARY | ~2018-12-11 | XMS | Encounter Summary ---
Demographics + + + | Address | [address] | | | [place] [address] | + + + | Home Phone | | + + + | Preferred Language | Unknown | + + + | Marital Status | | + + + | Episcopal Affiliation | Unknown | + + + | Race | Unknown | + + + | Ethnic Group | Unknown | + + + Author + + + | Author | [facility] | | | and [place] | + + + | Organization | [facility] | | | and [place] | + + + | Address | Unknown | + + + | Phone | Unavailable | + + + Support + + + + + | Name | Relationship | Address | Phone | + + + + + | [place] Will | ECON | [place] | | | | | [address] | | + + + + + Care Team Providers + +------+ + | Care Business Line Controller Name | Role | Phone | + +------+ + | Young Haque DO | PCP | | + +------+ + Reason for Visit Evaluate & Treat (Routine) + + + + + + + | Status | Reason | Specialty | Diagnoses / | Referred By | Referred To | | | | | Procedures | Contact | Contact | + + + + + + + | Authorized | Specialty | Cardiac | Diagnoses | Paicines, | [facility] | | | Services | Rehabilitatio | Coronary | Janel | | | | Required | n | artery | ADARSH Jacobs | Rehabilitatio | | | | | disease | [address] | [address] | | | | | involving | [address] | [place] | | | | | [place] | [place], [place] | [place] | | | | | coronary | [address] | [address] | | | | | artery of | Phone: | Phone: | | | | | [place] heart | [phone] | [phone] | | | | | without | Fax: | Fax: | | | | | angina | [phone] | [phone] | | | | | pectoris | | | + + + + + + + Encounter Details +--------+---------+ + + + | Date | Type | Department | Care Team | Description | +--------+---------+ + + + | 10/21/ | Office | [facility] | Randy Figueroa, | Coronary artery | | 2019 | Visit | MED CTR CARDIAC | [address] [place] | disease, angina | | | | REHABILITATION [address] [place], | presence | | | | [address] [place] | [place] [address] | unspecified, | | | | [place] [address] | [phone] | unspecified vessel | | | | [phone] | | or lesion type, | | | | | | unspecified whether | | | | | | [place] or | | | | | | transplanted heart | | | | | | (Primary Dx) | +--------+---------+ + + + Social History [...] + + + as of this encounter Progress Notes Ana Thomas, SPREADER - 10/21/2018 1000 PSTFormatting of this note may be different from the original. [facility] CARDIAC REHABILITATION [address] [facility] [address] Cardiac Rehab Date: 10/21/2018 Patient Information Patient Name: Bob Will Date of : 1955 Age: 62 y.o. Encounter Diagnoses Code Name Primary? I25.10 Coronary 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, angina presence unspecified, unspecified vessel or lesi on type, unspecified whether [place] or transplanted heart Yes Number of Visits Approved: 34 Taken Medications Today? Yes Any Changes in Medications? No Any Problems to Report? No Ashok arrived today stating he was far more tired than normal. Stated he had 2 episodes of v omiting in the past 48 hrs, but had not vomited in over 24 hrs. His face was flush. Exam r evealed a BP of 146/80, which is much higher than Ashok's norm. secured entrance monitor was placed. No significant change noted from previous/ Ashok was allowed to exercise on the recumbent bik e. After 3 minutes, Ashok was found with his eyes closed. When approached, Ashok stated he was dizzy and had a headache. Exercise was immediately stopped. Ashok was observed for several minutes. BP rechecked, 138/80. Encouraged Ashok to seek medical attention to which he declin ed. Advised Ashok if he continues to feel bad, to check his BP at home and go to ER. Ashok had [facility] where changes in medication was made. Ashok states they stopped his Entresto and increased Lasix to two tabs daily. also notified to [facility] Ashok. Any abnormal vital signs or rhythm strips will be reported in progress note. Electronically signed by: Ana Thomas, BARRON, 10/21/2018 14:30 Patient Name: Bob Sims Suman/: 1955/ this enco unter Plan of Treatment +--------+ + + + + | Date | Type | Specialty | Care Team | Description | +--------+ + + + + | 12/14/ | Office | Cardiac | Randy Figueroa, | | | 2018 | Visit | Rehabilitation | MD [address] [place] | | | | | | [place], | | | | | | [place] [address] | | | | | | [phone] | | | | | | | | +--------+ + + + + | 12/16/ | Office | Cardiac | Randy Figueroa, | | | 2018 | Visit | Rehabilitation | MD [address] [place] | | | | | | [place], | | | | | | [place] [address] | | | | | | [phone] | | | | | | | | +--------+ + + + + | 12/21/ | Office | Cardiac | Randy Figueroa, | | | 2018 | Visit | Rehabilitation | MD [address] [place] | | | | | | [place], | | | | | | [place] [address] | | | | | | [phone] | | | | | | | | +--------+ + + + + | 12/23/ | Office | Cardiac | Randy Figueroa, | | | 2018 | Visit | Rehabilitation | MD [address] | | | | | | [place], | | | | | | [place] [address] | | | | | | [phone] | | | | | | | | +--------+ + + + + | 12/28/ | Office | Cardiac | Randy Figueroa, | | | 2018 | Visit | Rehabilitation | MD [address] [place] | | | | | | [place], | | | | | | [place] [address] | | | | | | [phone] | | | | | | | | +--------+ + + + + | 12/30/ | Office | Cardiac | Randy Figueroa, | | | 2018 | Visit | Rehabilitation | MD [address] [place] | | | | | | [place], | | | | | | [place] [address] | | | | | | [phone] | | | | | | | | +--------+ + + + + | 01/04/ | Office | Cardiac | Randy Figueroa, | | | 2018 | Visit | Rehabilitation | MD [address] [place] | | | | | | [place], | | | | | | [place] [address] | | | | | | [phone] | | | | | | | | +--------+ + + + + | 01/06/ | Office | Cardiac | Randy Figueroa, | | | 2018 | Visit | Rehabilitation | MD [address] [place] | | | | | | [place], | | | | | | [place] [address] | | | | | | [phone] | | | | | | | | +--------+ + + + + | 01/11/ | Office | Cardiac | Randy Figueroa, | | | 2018 | Visit | Rehabilitation | MD [address] [place] | | | | | | [place], | | | | | | [place] [address] | | | | | | [phone] | | | | | | | | +--------+ + + + + | 03/24/ | Procedure | Cardiology | | | | 2018 | visit | | | | +--------+ + + + + | 03/24/ | Office | Cardiology | Jenny, | | | 2018 | Visit | | ADARSH Santo [address] | | | | | | [place], | | | | | | [place] [address] | | | | | | [phone] | | | | | | | | +--------+ + + + + as of this encounter Visit Diagnoses + + | Diagnosis | + + | Coronary 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, angina presence unspecified, unspecified vessel or lesion | | type, unspecified whether [place] or transplanted heart - Primary | + +"
--- OUTSIDE RECORDS SUMMARY | ~2018-12-11 | XMS | Encounter Summary ---
Demographics + + + | Address | [address] | | | [place] [address] | + + + | Home Phone | | + + + | Preferred Language | Unknown | + + + | Marital Status | | + + + | Episcopalian Affiliation | Unknown | + + + | Race | Unknown | + + + | Ethnic Group | Unknown | + + + Author + + + | Author | [facility] | | | and [place] | + + + | Organization | [facility] | | | and [place] | + + + | Address | Unknown | + + + | Phone | Unavailable | + + + Support + + + + + | Name | Relationship | Address | Phone | + + + + + | [place] Will | ECON | [place] | | | | | [address] | | + + + + + Care Team Providers + +------+ + | Care Telephone Interviewer Name | Role | Phone | + [...] | | | involving | [address] | [place] | | | | | [place] | [place] [address] | [place] | | | | | coronary | [address] | [address] | | | | | artery of | Phone: | Phone: | | | | | [place] heart | [phone] | [phone] | | | | | without | Fax: | Fax: | | | | | angina | [phone] | [phone] | | | | | pectoris | | | + + + + + + + Encounter Details +--------+---------+ + + + | Date | Type | Department | Care Team | Description | +--------+---------+ + + + | 11/23/ | Office | [facility] | Rahullindacathy Lindaangusleo, | Acute on chronic | | 2019 | Visit | MED CTR CARDIAC | MD [address] | systolic congestive | | | | REHABILITATION [address] | [place] [place], | heart failure (HCC) | | | | [address] [place] | [place] [address] | (Primary Dx) | | | | [place] [address] | [phone] | | | | | [phone] | | | +--------+---------+ + + + [...] + + as of this encounter Progress Cheri Mchugh RRT - 11/23/2018 1000 PDTFormatting of this note may be differ ent from the original. [facility] [address] [facility] [address] Cardiac Rehab Date: 11/23/2018 Patient Information Patient [...] in progress note. Electronically signed by: Cheri Harvey, BARRON, 11/23/2018 12:12 Patient Name: Bob Will/: 1955/ this enco unter Plan of Treatment +--------+ + + + + | Date | Type | Specialty | Care Team | Description | +--------+ + + + + | 12/14/ | Office | Cardiac | Randy Figueroa, | | | 2018 | Visit | Rehabilitation | MD [address] [place] [address] | | | | | | [place], | | | | | | [place] [address] | | | | | | [phone] | | | | | | | | +--------+ + + + + | 12/16/ | Office | Cardiac | Randy Figueroa, | | | 2018 | Visit | Rehabilitation | MD [address] | | | | | | [place], | | | | | | [place] [address] | | | | | | [phone] | | | | | | | | +--------+ + + + + | 12/21/ | Office | Cardiac | Randy Figueroa, | | | 2018 | Visit | Rehabilitation | MD [address] [place] | | | | | | [place], | | | | | | [place] [address] | | | | | | [phone] | | | | | | | | +--------+ + + + + | 12/23/ | Office | Cardiac | Randy Figueroa, | | | 2018 | Visit | Rehabilitation | MD [address] [place] | | | | | | [place], | | | | | | [place] [address] | | | | | | [phone] | | | | | | | | +--------+ + + + + | 12/28/ | Office | Cardiac | Randy Figueroa, | | | 2018 | Visit | Rehabilitation | MD [address] [place] | | | | | | [place], | | | | | | [place] [address] | | | | | | [phone] | | | | | | | | +--------+ + + + + | 12/30/ | Office | Cardiac | Randy Figueroa, | | | 2018 | Visit | Rehabilitation | MD [address] | | | | | | [place], | | | | | | [place] [address] | | | | | | [phone] | | | | | | | | +--------+ + + + + | 01/04/ | Office | Cardiac | Randy Figueroa, | | | 2018 | Visit | Rehabilitation | MD [address] | | | | | | [place], | | | | | | [place] [address] | | | | | | [phone] | | | | | | | | +--------+ + + + + | 01/06/ | Office | Cardiac | Randy Figueroa, | | | 2018 | Visit | Rehabilitation | MD [address] | | | | | | [place], | | | | | | [place] [address] | | | | | | [phone] | | | | | | | | +--------+ + + + + | 01/11/ | Office | Cardiac | Randy Figueroa, | | | 2018 | Visit | Rehabilitation | MD [address] | | | | | | [place], | | | | | | [place] [address] | | | | | | [phone] | | | | | | | | +--------+ + + + + | 03/24/ | Procedure | Cardiology | | | | 2018 | visit | | | | +--------+ + + + + | 03/24/ | Office | Cardiology | Jenny, | | | 2019 | Visit | | ADARSH Santo [address] | | | | | | [place], | | | | | | [place] [address] | | | | | | [phone] | | | | | | | | +--------+ + + + + as of this encounter Visit Diagnoses + + | Diagnosis | + + | Acute on chronic systolic congestive heart failure (HCC) - Primary | + + | Acute on chronic systolic heart failure | + +"
--- OUTSIDE RECORDS SUMMARY | ~2018-12-11 | XMS | Encounter Summary ---
Demographics + + + | Address | [address] | | | [place] [address] | + + + | Home Phone | | + + + | Preferred Language | Unknown | + + + | Marital Status | | + + + | Mormon Affiliation | Unknown | + + + | Race | Unknown | + + + | Ethnic Group | Unknown | + + + Author + + + | Author | [facility] | | | and [place] | + + + | Organization | [facility] | | | and [place] | + + + | Address | Unknown | + + + | Phone | Unavailable | + + + Support + + + + + | Name | Relationship | Address | Phone | + + + + + | [place] Will | ECON | [place] | | | | | [address] | | + + + + + Care Team Providers + +------+ + | Care Director Of Assisted Living Name | Role | Phone | + [...] | | involving | [address] [place] | | | | | [place] | [place], [place] | [place], [place] | | | | | coronary | [address] | [address] | | | | | artery of | Phone: | Phone: | | | | | [place] heart | [phone] | [phone] | | | | | without | Fax: | Fax: | | | | | angina | [phone] | [phone] | | | | | pectoris | | | + + + + + + + Encounter Details +--------+---------+ + + + | Date | Type | Department | Care Team | Description | +--------+---------+ + + + | 10/12/ | Office | [facility] | Randy Figueroa, | Coronary artery | | 2019 | Visit | MED CTR CARDIAC | MD [address] [place] | disease, angina | | | | REHABILITATION [address] [place], | presence | | | | [address] [place] | [place] [address] | unspecified, | | | | [place] [address] | [phone] | unspecified vessel | | | | [phone] | | or lesion type, | | | | | | unspecified whether | | | | | | [place] or | | | | | | transplanted heart | | | | | | (Primary Dx); Post | | | | | | PTCA | +--------+---------+ + + + Social [...] this encounter Progress Notes Gael Woo - 10/12/2018 1000 PSTFormatting of this note may be different from the origin [facility] CARDIAC REHABIL[facility]ATION [address] [place] [address] Cardiac Rehab Date: 10/12/2018 Patient Information Patient Name: Bob Will Date of : 1955 Age: 62 y.o. Encounter Diagnoses Code Name Primary? I25.10 Coronary 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, angina presence unspecified, unspecified vessel or lesi on type, unspecified whether [place] or transplanted heart Yes Z98.61 Post PTCA Number of Visits Approved: 34 Taken Medications Today? Yes Any Changes in Medications? No Any Problems to Report? No Denies any adverse symptoms during exercise. Ventricular paced rhythm without ectopy. Pre O2: 94%, Ex O2: 98%. SBP prior to exercise 90/ 54; during exercise 98/56, post exercise SBP 88/56. Compliant with medications and therapeutic lifestyle changes. Continue monitored exercise. Any abnormal vital signs or rhythm strips will be reported in progress note. Electronically signed by: Gael Woo, 10/12/2018 14:13 Patient Name: Bob Will/: 1955/ this enco [...] [place], | | | | | | [place] [address] | | | | | | [phone] | | | | | | | | +--------+ + + + + | 12/16/ | Office | Cardiac | Randy Figueroa, | | | 2018 | Visit | Rehabilitation | MD [address] [place] [address] | | | | | | [place], | | | | | | [place] [address] | | | | | | [phone] | | | | | | | | +--------+ + + + + | 12/21/ | Office | Cardiac | Randy Figueroa, | | | 2018 | Visit | Rehabilitation | MD [address] [place] [address] | | | | | | [place], | | | | | | [place] [address] | | | | | | [phone] | | | | | | | | +--------+ + + + + | 12/23/ | Office | Cardiac | Randy Figueroa, | | | 2018 | Visit | Rehabilitation | MD [address] [place] [address] | | | | | | [place], | | | | | | [place] [address] | | | | | | [phone] | | | | | | | | +--------+ + + + + | 12/28/ | Office | Cardiac | Randy Figueroa, | | | 2018 | Visit | Rehabilitation | MD [address] | | | | | | [place], | | | | | | [place] [address] | | | | | | [phone] | | | | | | | | +--------+ + + + + | 12/30/ | Office | Cardiac | Randy Figureoa, | | | 2018 | Visit | Rehabilitation | MD [address] [place] [address] | | | | | | [place], | | | | | | [place] [address] | | | | | | [phone] | | | | | | | | +--------+ + + + + | 01/04/ | Office | Cardiac | Randy Figueroa, | | | 2018 | Visit | Rehabilitation | MD [address] | | | | | | [place], | | | | | | [place] [address] | | | | | | [phone] | | | | | | | | +--------+ + + + + | 01/06/ | Office | Cardiac | Randy Figueroa, | | | 2018 | Visit | Rehabilitation | MD [address] [place] | | | | | | [place], | | | | | | [place] [address] | | | | | | [phone] | | | | | | | | +--------+ + + + + | 01/11/ | Office | Cardiac | Randy Figueroa, | | | 2018 | Visit | Rehabilitation | MD [address] [place] | | | | | | [place], | | | | | | [place] [address] | | | | | | [phone] | | | | | | | | +--------+ + + + + | 03/24/ | Procedure | Cardiology | | | | 2018 | visit | | | | +--------+ + + + + | 03/24/ | Office | Cardiology | Jenny, | | | 2018 | Visit | | Hansa, LOGISTICS SOLUTION MANAGER [address] | | | | | | [address], | | | | | | [place] [address] | | | | | | [phone] | | | | | | | | +--------+ + + + + as of this encounter Visit Diagnoses + + | Diagnosis | + + | Coronary 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, angina presence unspecified, unspecified vessel or lesion | | type, unspecified whether [place] or transplanted heart - Primary | + + | Post PTCA | + + | Postsurgical percutaneous transluminal coronary angioplasty status | + +"
--- OUTSIDE RECORDS SUMMARY | ~2018-12-11 | XMS | Encounter Summary ---
Demographics + + + | Address | [address] | | | [place] [address] | + + + | Home Phone | | + + + | Preferred Language | Unknown | + + + | Marital Status | | + + + | Alevism Affiliation | Unknown | + + + | Race | Unknown | + + + | Ethnic Group | Unknown | + + + Author + + + | Author | [facility] | | | and [place] | + + + | Organization | [facility] | | | and [place] | + + + | Address | Unknown | + + + | Phone | Unavailable | + + + Support + + + + + | Name | Relationship | Address | Phone | + + + + + | [place] Will | ECON | [place] | | | | | [address] | | + + + + + Care Team Providers + +------+ + | Care Billiard Parlor Manager Name | Role | Phone | + [...] | | | involving | [address] [place] | | | | | [place] | [place] | [place] | | | | | coronary | [address] | [address] | | | | | artery of | Phone: | Phone: | | | | | [place] heart | [phone] | [phone] | | | | | without | Fax: | Fax: | | | | | angina | [phone] | [phone] | | | | | pectoris | | | + + + + + + + Encounter Details +--------+---------+ + + + | Date | Type | Department | Care Team | Description | +--------+---------+ + + + | 11/25/ | Office | [facility] | Carolina Randy, | Coronary artery | | 2019 | Visit | MED CTR CARDIAC | MD [address] | disease involving | | | | REHABILITATION [address] | [address] [place], | [place] coronary | | | | [address] [place] | [place] [address] | artery of [place] | | | | [place] [address] | [phone] | heart without angina | | | | [phone] | | pectoris (Primary | | | [...] + as of this encounter Progress Notes Cheri Harvey RRT - 11/25/2018 1000 PDTFormatting of this note may be differ ent from the original. [facility] CTR CARDIAC REHABILITATION [address] [place] [address] Cardiac Rehab Date: 11/25/2018 Patient Information Patient [...] note. Electronically signed by: Cheri Harvey, BARRON, 11/25/2018 12:48 Patient Name: Bob Will/: 1955/ this enco unter Plan of Treatment +--------+ + + + + | Date | Type | Specialty | Care Team | Description | +--------+ + + + + | 12/14/ | Office | Cardiac | Randy Figueroa, | | | 2019 | Visit | Rehabilitation | MD [address] | | | | | | [place], | | | | | | [place] [address] | | | | | | [phone] | | | | | | | | +--------+ + + + + | 12/16/ | Office | Cardiac | Randy Figueroa, | | | 2018 | Visit | Rehabilitation | MD [address] | | | | | | [place], | | | | | | [place] [address] | | | | | | [phone] | | | | | | | | +--------+ + + + + | 12/21/ | Office | Cardiac | Randy Figueroa, | | | 2018 | Visit | Rehabilitation | MD [address] | | | | | | [place], | | | | | | [place] [address] | | | | | | [phone] | | | | | | | | +--------+ + + + + | 12/23/ | Office | Cardiac | Randy Figueroa, | | | 2018 | Visit | Rehabilitation | MD [address] | | | | | | [place], | | | | | | [place] [address] | | | | | | [phone] | | | | | | | | +--------+ + + + + | 12/28/ | Office | Cardiac | Randy Figueroa, | | | 2018 | Visit | Rehabilitation | MD [address] | | | | | | [place], | | | | | | [place] [address] | | | | | | [phone] | | | | | | | | +--------+ + + + + | 12/30/ | Office | Cardiac | Randy Figueroa, | | | 2018 | Visit | Rehabilitation | MD [address] | | | | | | [place], | | | | | | [place] [address] | | | | | | [phone] | | | | | | | | +--------+ + + + + | 01/04/ | Office | Cardiac | Randy Figueroa, | | | 2018 | Visit | Rehabilitation | MD [address] | | | | | | [place], | | | | | | [place] [address] | | | | | | [phone] | | | | | | | | +--------+ + + + + | 01/06/ | Office | Cardiac | Randy Figueroa, | | | 2018 | Visit | Rehabilitation | MD [address] | | | | | | [place], | | | | | | [place] [address] | | | | | | [phone] | | | | | | | | +--------+ + + + + | 01/11/ | Office | Cardiac | Randy Figueroa, | | | 2018 | Visit | Rehabilitation | MD [address] | | | | | | [place], | | | | | | [place] [address] | | | | | | [phone] | | | | | | | | +--------+ + + + + | 03/24/ | Procedure | Cardiology | | | | 2018 | visit | | | | +--------+ + + + + | 03/24/ | Office | Cardiology | Edwards, | | | 2019 | Visit | | ADARSH Santo [address] | | | | | | [place], | | | | | | [place] [address] | | | | | | [phone] | | | | | | | | +--------+ + + + + as of this encounter Visit Diagnoses + + | Diagnosis | + + | Coronary 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 involving [place] coronary artery of [place] heart without | | angina pectoris - Primary | + + | Post PTCA | + + | Postsurgical percutaneous transluminal coronary angioplasty status | + +"
--- OUTSIDE RECORDS SUMMARY | ~2018-12-11 | XMS | Encounter Summary ---
Demographics + + + | Address | [address] | | | [place] [address] | + + + | Home Phone | | + + + | Preferred Language | Unknown | + + + | Marital Status | | + + + | Sikhism Affiliation | Unknown | + + + | Race | Unknown | + + + | Ethnic Group | Unknown | + + + Author + + + | Author | [facility] | | | and [place] | + + + | Organization | [facility] | | | and [place] | + + + | Address | Unknown | + + + | Phone | Unavailable | + + + Support + + + + + | Name | Relationship | Address | Phone | + + + + + | [place] Will | ECON | [place] | | | | | [address] | | + + + + + Care Team Providers + +------+ + | Care Interior Systems Carpenter Name | Role | Phone | + +------+ + | Young Haque DO | PCP | | + +------+ + Reason for Visit +--------+ + | Reason | Comments | +--------+ + | Other | medication issue | +--------+ + Encounter Details +--------+ + + + + | Date | Type | Department | Care Team | Description | +--------+ + + + + | 10/27/ | Telephone | [facility] | Jenny, | Other (medication | | 2018 | | CARDIOLOGY [address] | [address]SH [address] | issue) | | | | [place], | [place], | | | | | [place] [address] | [place] [address] | | | | | [phone] | [phone] | | | | | | | [...] | | | | | | [place] [address] | | | | | | [phone] | | | | | | | | +--------+ + + + + | 12/16/ | Office | Cardiac | Randy Figueroa, | | | 2018 | Visit | Rehabilitation | MD [address] | | | | | | [place], | | | | | | [place] [address] | | | | | | [phone] | | | | | | | | +--------+ + + + + | 12/21/ | Office | Cardiac | Randy Figueroa, | | | 2018 | Visit | Rehabilitation | MD [address] | | | | | | [place], | | | | | | [place] [address] | | | | | | [phone] | | | | | | | | +--------+ + + + + | 12/23/ | Office | Cardiac | Randy Figueroa, | | | 2018 | Visit | Rehabilitation | MD [address] [place] | | | | | | [place], | | | | | | [place] [address] | | | | | | [phone] | | | | | | | | +--------+ + + + + | 12/28/ | Office | Cardiac | Randy Figueroa, | | | 2018 | Visit | Rehabilitation | MD [address] [place] | | | | | | [place], | | | | | | [place] [address] | | | | | | [phone] | | | | | | | | +--------+ + + + + | 12/30/ | Office | Cardiac | Randy Figueroa, | | | 2018 | Visit | Rehabilitation | MD [address] [place] | | | | | | [place], | | | | | | [place] [address] | | | | | | [phone] | | | | | | | | +--------+ + + + + | 01/04/ | Office | Cardiac | Randy Figueroa, | | | 2018 | Visit | Rehabilitation | MD [address] [place] | | | | | | [place], | | | | | | [place] [address] | | | | | | [phone] | | | | | | | | +--------+ + + + + | 01/06/ | Office | Cardiac | Randy Figueroa, | | | 2018 | Visit | Rehabilitation | MD [address] [place] | | | | | | [place], | | | | | | [place] [address] | | | | | | [phone] | | | | | | | | +--------+ + + + + | 01/11/ | Office | Cardiac | Randy Figueroa, | | | 2018 | Visit | Rehabilitation | MD [address] [place] | | | | | | [place], | | | | | | [place] [address] | | | | | | [phone] | | | | | | | [...] [place], | | | | | | [place] [address] | | | | | | [phone] | | | | | | | | +--------+ + + + + + +--------+ + + | Name | Priori | Associated Diagnoses | Order Schedule | | | ty | | | + +--------+ + + | Basic Metabolic Panel | Routin | Congestive heart | Expected: | | | e | failure, unspecified | 11/03/2018, Expires: | | | | HF chronicity, | 10/27/2019 | | | | unspecified heart | | | | | failure type (HCC) | | + +--------+ + + as of this encounter Visit Diagnoses + + | Diagnosis | + + | Congestive heart failure, unspecified HF chronicity, unspecified heart failure type | | (HCC) - Primary | + +"
--- OUTSIDE RECORDS SUMMARY | ~2018-12-11 | XMS | Encounter Summary ---
Demographics + + + | Address | [address] | | | [place] [address] | + + + | Home Phone | | + + + | Preferred Language | Unknown | + + + | Marital Status | | + + + | Sikh Affiliation | Unknown | + + + | Race | Unknown | + + + | Ethnic Group | Unknown | + + + Author + + + | Author | [facility] | | | and [place] | + + + | Organization | [facility] | | | and [place] | + + + | Address | Unknown | + + + | Phone | Unavailable | + + + Support + + + + + | Name | Relationship | Address | Phone | + + + + + | [place] Will | ECON | [place] | | | | | [address] | | + + + + + Care Team Providers + +------+ + | Care Polymer Scientist Name | Role | Phone | + [...] | | | involving | [address] [place] | | | | | [place] | [place], [place] | [place], [place] | | | | | coronary | [address] | [address] | | | | | artery of | Phone: | Phone: | | | | | [place] heart | [phone] | [phone] | | | | | without | Fax: | Fax: | | | | | angina | [phone] | [phone] | | | | | pectoris | | | + + + + + + + Encounter Details +--------+---------+ + + + | Date | Type | Department | Care Team | Description | +--------+---------+ + + + | 11/18/ | Office | [facility] | Randy Figueroa, | Coronary artery | | 2019 | Visit | MED CTR CARDIAC | [address] | disease involving | | | | REHABILITATION [address] | [place], | [place] coronary | | | | [place] | [place] [address] | artery of [place] | | | | [place] [address] | [phone] | heart without angina | | | | [phone] | | pectoris (Primary | | | [...] note may be different from the origin [facility] CARDIAC REHABILITATION [address] [facility] [address] Cardiac Rehab Date: 11/18/2018 Patient Information Patient Name: Bob Will Date of : 1955 Age: 63 y.o. Encounter Diagnoses Code Name Primary? I25.10 Coronary 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 involving [place] coronary artery of [place] heart without angina pectoris Yes Z98.61 Post [...] [place], | | | | | | [place] [address] | | | | | | [phone] | | | | | | | | +--------+ + + + + | 12/16/ | Office | Cardiac | Randy Figueroa, | | | 2018 | Visit | Rehabilitation | MD [address] | | | | | | [place], | | | | | | [place] [address] | | | | | | [phone] | | | | | | | | +--------+ + + + + | 12/21/ | Office | Cardiac | Randy Figueroa, | | | 2018 | Visit | Rehabilitation | MD [address] | | | | | | [place], | | | | | | [place] [address] | | | | | | [phone] | | | | | | | | +--------+ + + + + | 12/23/ | Office | Cardiac | Randy Figueroa, | | | 2018 | Visit | Rehabilitation | MD [address] | | | | | | [place], | | | | | | [place] [address] | | | | | | [phone] | | | | | | | | +--------+ + + + + | 12/28/ | Office | Cardiac | Randy Figueroa, | | | 2018 | Visit | Rehabilitation | MD [address] | | | | | | [place], | | | | | | [place] [address] | | | | | | [phone] | | | | | | | | +--------+ + + + + | 12/30/ | Office | Cardiac | Randy Figueroa, | | | 2018 | Visit | Rehabilitation | MD [address] | | | | | | [place], | | | | | | [place] [address] | | | | | | [phone] | | | | | | | | +--------+ + + + + | 01/04/ | Office | Cardiac | Randy Figueroa, | | | 2018 | Visit | Rehabilitation | MD [address] | | | | | | [place], | | | | | | [place] [address] | | | | | | [phone] | | | | | | | | +--------+ + + + + | 01/06/ | Office | Cardiac | Randy Figueroa, | | | 2018 | Visit | Rehabilitation | MD Jav[address] Cresp[address] | | | | | | [place], | | | | | | [place] [address] | | | | | | [phone] | | | | | | | | +--------+ + + + + | 01/11/ | Office | Cardiac | Randy Figueroa, | | | 2018 | Visit | Rehabilitation | MD [address]av[address]resp[address] | | | | | | [place], | | | | | | [place] [address] | | | | | | [phone] | | | | | | | | +--------+ + + + + | 03/24/ | Procedure | Cardiology | | | | 2018 | visit | | | | +--------+ + + + + | 03/24/ | Office | Cardiology | Jenny, | | | 2018 | Visit | | [address] | | | | | | [place], | | | | | | [place] [address] | | | | | | [phone] | | | | | | | | +--------+ + + + + as of this encounter Visit Diagnoses + + | Diagnosis | + + | Coronary 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 involving [place] coronary artery of [place] heart without | | angina pectoris - Primary | + + | Post PTCA | + + | Postsurgical percutaneous transluminal coronary angioplasty status | + +"
--- OUTSIDE RECORDS SUMMARY | ~2018-12-11 | XMS | Encounter Summary ---
Demographics + + + | Address | [address] | | | [place] [address] | + + + | Home Phone [...] + | Author | [facility] | | | and [place] | + + + | Organization | [facility] | | | and [place] | + + + | Address | Unknown | + + + | Phone | Unavailable | + + + Support + + + + + | Name | Relationship | Address | Phone | + + + + + | [place] Will | ECON | [place] | | | | | [address] | | + + + + + Care Team Providers + +------+ + | Care Farm Implement Engine Mechanic Name | Role | Phone | [...] | | | involving | [address] | [address] [place] | | | | | [place] | [place] | [place] | | | | | coronary | [address] | [address] | | | | | artery of | Phone: | Phone: | | | | | [place] heart | [phone] | [phone] | | | | | without | Fax: | Fax: | | | | | angina | [phone] | [phone] | | | | | pectoris | | | + + + + + + + Encounter Details +--------+---------+ + + + | Date | Type | Department | Care Team | Description | +--------+---------+ + + + | 10/28/ | Office | [facility] | Randy Figueroa, | Coronary artery | | 2019 | Visit | MED CTR CARDIAC | MD [address] | disease, angina | | | | REHABILITATION [address] | [address], | presence | | | | [place] | [place] [address] | unspecified, | | | | [place] [address] | [phone] | unspecified vessel | | | | [phone] | | or lesion type, | | | | | | unspecified whether | | | | | | [place] or | | | | | | [...] + as of this encounter Progress Notes Maria Esther Fields RN - 10/28/2018 1000 PSTFormatting of this note may be different from the or iginal. [facility] CARDIAC REHABILITATION [address] [place] [address] Cardiac Rehab Date: 10/28/2018 Patient Information Patient Name: Bob Will Date of : 1955 Age: 62 y.o. Encounter Diagnoses Code Name Primary? I25.10 Coronary 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, angina presence unspecified, unspecified vessel or lesi on type, unspecified whether [place] or transplanted heart Yes Z98.61 Post PTCA [...] reported in progress note. Electronically signed by: Maria Esther Fields RN, 10/28/2018 13:39 Patient Name: Bob Will/: 1955/ this enco unter Plan of Treatment +--------+ + + + + | Date | Type | Specialty | Care Team | Description | +--------+ + + + + | 12/14/ | Office | Cardiac | Randy Figueroa, | | | 2019 | Visit | Rehabilitation | MD [address] | | | | | | [place], | | | | | | [place] [address] | | | | | | [phone] | | | | | | | | +--------+ + + + + | 12/16/ | Office | Cardiac | Randy Figueroa, | | | 2018 | Visit | Rehabilitation | MD [address] | | | | | | [place], | | | | | | [place] [address] | | | | | | [phone] | | | | | | | | +--------+ + + + + | 12/21/ | Office | Cardiac | Randy Figueroa, | | | 2018 | Visit | Rehabilitation | MD [address] | | | | | | [place], | | | | | | [place] [address] | | | | | | [phone] | | | | | | | | +--------+ + + + + | 12/23/ | Office | Cardiac | Randy Figueroa, | | | 2018 | Visit | Rehabilitation | MD [address] | | | | | | [place], | | | | | | [place] [address] | | | | | | [phone] | | | | | | | | +--------+ + + + + | 12/28/ | Office | Cardiac | Randy Figueroa, | | | 2018 | Visit | Rehabilitation | MD [address] | | | | | | [place], | | | | | | [place] [address] | | | | | | [phone] | | | | | | | | +--------+ + + + + | 12/30/ | Office | Cardiac | Randy Figueroa, | | | 2018 | Visit | Rehabilitation | MD [address] | | | | | | [place], | | | | | | [place] [address] | | | | | | [phone] | | | | | | | | +--------+ + + + + | 01/04/ | Office | Cardiac | Randy Figueroa, | | | 2018 | Visit | Rehabilitation | MD [address] | | | | | | [place], | | | | | | [place] [address] | | | | | | [phone] | | | | | | | | +--------+ + + + + | 01/06/ | Office | Cardiac | Randy Figueroa, | | | 2018 | Visit | Rehabilitation | MD Jav[address] Crespo | | | | | | [place], | | | | | | [place] [address] | | | | | | [phone] | | | | | | | | +--------+ + + + + | 01/11/ | Office | Cardiac | Randy Figueroa, | | | 2018 | Visit | Rehabilitation | MD [address] | | | | | | [place], | | | | | | [place] [address] | | | | | | [phone] | | | | | | | | +--------+ + + + + | 03/24/ | Procedure | Cardiology | | | | 2018 | visit | | | | +--------+ + + + + | 03/24/ | Office | Cardiology | Jenny, | | | 2018 | Visit | | ADARSH Santo [address] | | | | | | [place], | | | | | | [place] [address] | | | | | | [phone] | | | | | | | | +--------+ + + + + as of this encounter Visit Diagnoses + + | Diagnosis | + + | Coronary artery disease, angina presence unspecified, unspecified vessel or lesion | | type, unspecified whether [place] or transplanted heart - Primary | + + | Post PTCA | + + | Postsurgical percutaneous transluminal coronary angioplasty status | + +"
--- OUTSIDE RECORDS SUMMARY | ~2018-12-11 | XMS | Encounter Summary ---
Demographics + + + | Address | [address] | | | [place] [address] | + + + | Home Phone | | + + + | Preferred Language | Unknown | + + + | Marital Status | | + + + | Jew Affiliation | Unknown | + + + | Race | Unknown | + + + | Ethnic Group | Unknown | + + + Author + + + | Author | [facility] | | | and [place] | + + + | Organization | [facility] | | | and [place] | + + + | Address | Unknown | + + + | Phone | Unavailable | + + + Support + + + + + | Name | Relationship | Address | Phone | + + + + + | [place] Will | ECON | [place] | | | | | [address] | | + + + + + Care Team Providers + +------+ + | Care Power Electronics Research Engineer Name | Role | Phone | [...] | | | involving | [address] | [address] [place] | | | | | [place] | [place] | [place] | | | | | coronary | [address] | [address] | | | | | artery of | Phone: | Phone: | | | | | [place] heart | [phone] | [phone] | | | | | without | Fax: | Fax: | | | | | angina | [phone] | [phone] | | | | | pectoris | | | + + + + + + + Encounter Details +--------+---------+ + + + | Date | Type | Department | Care Team | Description | +--------+---------+ + + + | 12/02/ | Office | [facility] | Randy Figueroa, | Coronary artery | | 2019 | Visit | MED CTR CARDIAC | MD [address] | disease involving | | | | REHABILITATION [address] | [address], | [place] coronary | | | | [place] [place] | [place] [address] | artery of [place] | | | | [place] [address] | [phone] | heart without angina | | | | [phone] | | pectoris (Primary | | | [...] this encounter Progress Notes Gael Woo - 12/02/2018 1000 PDTFormatting of this note may be different from the origin al. [facility] MED CTR CARDIAC REHABILITATION [address] [place] [address] Cardiac Rehab Date: 12/02/2018 Patient Information Patient Name: Bob Will Date of : 1955 Age: 63 y.o. Encounter Diagnoses Code Name Primary? I25.10 Coronary artery disease involving [place] coronary artery of [place] heart without angina pectoris Yes Z98.61 Post PTCA Number of Visits Approved: 34 kx Taken Medications Today? Yes Any Changes in Medications? No Any Problems to Report? No No complaints with exertion. Patient drives from a distance so informs us that next week wi ll be his last week. Ventricular paced rhythm without ectopy. Pre O2: 96%, SBP prior to exercise 96/58; during e xercise 90/50, 2nd BP during exercise 80/54. Post fluid intake before discharge 92/62. Compliant with medications and therapeutic lifestyle changes. Continue monitored exercise. Any abnormal vital signs or rhythm strips will be reported in progress note. Electronically signed by: Gael Woo, 12/02/2018 14:45 Patient Name: Bob Will/: 1955/ this enco unter Plan of Treatment +--------+ + + + + | Date | Type | Specialty | Care Team | Description | +--------+ + + + + | 12/14/ | Office | Cardiac | Randy Figueroa, | | | 2019 | Visit | Rehabilitation | MD [address] | | | | | | [place], | | | | | | [place] [address] | | | | | | [phone] | | | | | | | | +--------+ + + + + | 12/16/ | Office | Cardiac | Randy Figueroa, | | | 2018 | Visit | Rehabilitation | MD [address] | | | | | | [place], | | | | | | [place] [address] | | | | | | [phone] | | | | | | | | +--------+ + + + + | 12/21/ | Office | Cardiac | Randy Figueroa, | | | 2018 | Visit | Rehabilitation | MD [address] | | | | | | [place], | | | | | | [place] [address] | | | | | | [phone] | | | | | | | | +--------+ + + + + | 12/23/ | Office | Cardiac | Randy Figueroa, | | | 2018 | Visit | Rehabilitation | MD [address] | | | | | | [place], | | | | | | [place] [address] | | | | | | [phone] | | | | | | | | +--------+ + + + + | 12/28/ | Office | Cardiac | Randy Figueroa, | | | 2018 | Visit | Rehabilitation | MD [address] | | | | | | [place], | | | | | | [place] [address] | | | | | | [phone] | | | | | | | | +--------+ + + + + | 12/30/ | Office | Cardiac | Randy Figueroa, | | | 2018 | Visit | Rehabilitation | MD [address] | | | | | | [place], | | | | | | [place] [address] | | | | | | [phone] | | | | | | | | +--------+ + + + + | 01/04/ | Office | Cardiac | Randy Figueroa, | | | 2018 | Visit | Rehabilitation | MD [address] | | | | | | [place], | | | | | | [place] [address] | | | | | | [phone] | | | | | | | | +--------+ + + + + | 01/06/ | Office | Cardiac | Randy Figueroa, | | | 2018 | Visit | Rehabilitation | MD [address]av[address] | | | | | | [place], | | | | | | [place] [address] | | | | | | [phone] | | | | | | | | +--------+ + + + + | 01/11/ | Office | Cardiac | Randy Figueroa, | | | 2018 | Visit | Rehabilitation | MD [address] | | | | | | [place], | | | | | | [place] [address] | | | | | | [phone] | | | | | | | | +--------+ + + + + | 03/24/ | Procedure | Cardiology | | | | 2018 | visit | | | | +--------+ + + + + | 03/24/ | Office | Cardiology | [place], | | | 2018 | Visit | | ADARSH Santo [address] | | | | | | [place], | | | | | | [place] [address] | | | | | | [phone] | | | | | | | | +--------+ + + + + as of this encounter Visit Diagnoses + + | Diagnosis | + + | Coronary artery disease involving [place] coronary artery of [place] heart without | | angina pectoris - Primary | + + | Post PTCA | + + | Postsurgical percutaneous transluminal coronary angioplasty status | + +"
--- OUTSIDE RECORDS SUMMARY | ~2018-12-11 | XMS | Encounter Summary ---
Demographics + + + | Address | [address] | | | [place] [address] | + + + | Home Phone | | + + + | Preferred Language | Unknown | + + + | Marital Status | | + + + | Moravian Affiliation | Unknown | + + + [...] [place] | | | | | [address] | | + + + + + Care Team Providers + +------+ + | Care Visual Merchandise Manager Name | Role | Phone | [...] + + | 10/07/ | Telephone | [facility] | Jenny, | Blood Pressure | | 2019 | | CARDIOLOGY [address] | [place], LEAD DESIGNER [address] | | | | | [place], | [place], | | | | | [place] [address] | [place] [address] | | | | | [phone] | [phone] | | | | | | | [...] | | | | | | [place] [address] | | | | | | [phone] | | | | | | | | +--------+ + + + + | 12/16/ | Office | Cardiac | Randy Figueroa, | | | 2018 | Visit | Rehabilitation | MD [address]av[address] | | | | | | [place], | | | | | | [place] [address] | | | | | | [phone] | | | | | | | | +--------+ + + + + | 12/21/ | Office | Cardiac | Randy Figueroa, | | | 2018 | Visit | Rehabilitation | MD Jav[address] | | | | | | [place], | | | | | | [place] [address] | | | | | | [phone] | | | | | | | | +--------+ + + + + | 12/23/ | Office | Cardiac | Randy Figueroa, | | | 2018 | Visit | Rehabilitation | MD [address] [place] | | | | | | [place], | | | | | | [place] [address] | | | | | | [phone] | | | | | | | | +--------+ + + + + | 12/28/ | Office | Cardiac | Randy Figueroa, | | | 2018 | Visit | Rehabilitation | MD [address] [place] | | | | | | [place], | | | | | | [place] [address] | | | | | | [phone] | | | | | | | | +--------+ + + + + | 12/30/ | Office | Cardiac | Randy Figueroa, | | | 2018 | Visit | Rehabilitation | MD [address] [place] | | | | | | [place], | | | | | | [place] [address] | | | | | | [phone] | | | | | | | | +--------+ + + + + | 01/04/ | Office | Cardiac | Randy Figueroa, | | | 2018 | Visit | Rehabilitation | MD [address] [place] | | | | | | [place], | | | | | | [place] [address] | | | | | | [phone] | | | | | | | | +--------+ + + + + | 01/06/ | Office | Cardiac | Randy Figueroa, | | | 2018 | Visit | Rehabilitation | MD [address] [place] | | | | | | [place], | | | | | | [place] [address] | | | | | | [phone] | | | | | | | | +--------+ + + + + | 01/11/ | Office | Cardiac | Randy Figueroa, | | | 2018 | Visit | Rehabilitation | MD [address] [place] | | | | | | [place], | | | | | | [place] [address] | | | | | | [phone] | | | | | | | [...] | | | | | | [place] [address] | | | | | | [phone] | | | | | | | | +--------+ + + + + as of this encounter Visit Diagnoses Not on filein this encounter"
--- OUTSIDE RECORDS SUMMARY | ~2018-12-11 | XMS | Encounter Summary ---
Demographics + + + | Address | [address] | | | [place] [address] | + + + | Home Phone [...] [place] | | | | | [address] | | + + + + + Care Team Providers + +------+ + | Care Steel Hanger Name | Role | Phone | + [...] Monitor | CARDIOLOGY [address] | [address] | Interrogation | | | | [place], | [place], | (Primary Dx); [place] | | | | [place] [address] | [place] [address] | (AICD) [employer] | | | | [phone] | [phone] | 10/16/17 [facility] [place]; | | | | | | [...] | | | | | | [place] [address] | | | | | | [phone] | | | | | | | | +--------+ + + + + | 12/16/ | Office | Cardiac | Randy Figueroa, | | | 2018 | Visit | Rehabilitation | MD [address]av[address] | | | | | | [place], | | | | | | [place] [address] | | | | | | [phone] | | | | | | | | +--------+ + + + + | 12/21/ | Office | Cardiac | Randy Figueroa, | | | 2018 | Visit | Rehabilitation | MD [address] | | | | | | [place], | | | | | | [place] [address] | | | | | | [phone] | | | | | | | | +--------+ + + + + | 12/23/ | Office | Cardiac | Randy Figueroa, | | | 2018 | Visit | Rehabilitation | MD [address] | | | | | | [place], | | | | | | [place] [address] | | | | | | [phone] | | | | | | | | +--------+ + + + + | 12/28/ | Office | Cardiac | Randy Figueroa, | | | 2018 | Visit | Rehabilitation | MD [address] | | | | | | [place], | | | | | | [place] [address] | | | | | | [phone] | | | | | | | | +--------+ + + + + | 12/30/ | Office | Cardiac | Randy Figueroa, | | 2018 | Visit | Rehabilitation | MD [address] | | | | | | [place], | | | | | | [place] [address] | | | | | | [phone] | | | | | | | | +--------+ + + + + | 01/04/ | Office | Cardiac | Randy Figueroa, | | | 2018 | Visit | Rehabilitation | MD [address] | | | | | | [place], | | | | | | [place] [address] | | | | | | [phone] | | | | | | | | +--------+ + + + + | 01/06/ | Office | Cardiac | Randy Figueroa, | | | 2018 | Visit | Rehabilitation | MD [address] | | | | | | [place], | | | | | | [place] [address] | | | | | | [phone] | | | | | | | | +--------+ + + + + | 01/11/ | Office | Cardiac | Randy Figueroa, | | | 2018 | Visit | Rehabilitation | MD [address] | | | | | | [place], | | | | | | [place] [address] | | | | | | [phone] | | | | | | | | +--------+ + + + + | 03/24/ | Procedure | Cardiology | | | | 2018 | visit | | | | +--------+ + + + + | 03/24/ | Office | Cardiology | Jenny, | | | 2018 | Visit | | ADARSH Santo [address] | | | | | | [place], | | | | | | [place] [address] | | | | | | [phone] | | | | | | | [...] this | | INTERROGATION- | e | 2359 PDT | Interrogation WIPING CLOTH CUTTER-D | procedure are in the | | REMOTE | | | ([facility]) [employer] | results section. | | | | | 10/16/17 EULOGIO Darby | | | | | | Ischemic | | | | | | cardiomyopathy | | + +--------+ + + + in this encounter Results Device Interrogation - Remote (12/05/20189) + + + | Narrative | Performed At | + + + | Randy | DONNA | | MD [place] 11/05/2018 10:33Date of Remote Interrogation: | | | 10/19/18 Refer to [facility] documentation and remote PDF scanned into | | | [facility] for remote interrogation results. Data collected [...] + + | Performing | Address | City/State/Inscription House Health Centercode | Phone Number | | Organization | | | | + +---------+ + + | [facility] | | | | + +---------+ + + in this encounter Visit Diagnoses + + | Diagnosis | + + | Remote Device Interrogation - Primary | + + | Fitting and adjustment of automatic implantable cardiac defibrillator | + + | WIPING CLOTH CUTTER-D (GABBI) [employer] 10/16/17 EULOGIO Darby | + + | Ischemic cardiomyopathy | + + | Other specified forms of chronic ischemic heart disease | + +"
--- OUTSIDE RECORDS SUMMARY | ~2018-12-11 | XMS | Encounter Summary ---
Demographics + + + | Address | [address] | | | [place] [address] | + + + | Home Phone | | + + + | Preferred Language | Unknown | + + + | Marital Status | | + + + | Alevism Affiliation | Unknown | + + + | Race | Unknown | + + + | Ethnic Group | Unknown | + + + Author + + + | Author | [facility] | | | and [place] | + + + | Organization | [facility] | | | and [place] | + + + | Address | Unknown | + + + | Phone | Unavailable | + + + Support + + + + + | Name | Relationship | Address | Phone | + + + + + | [place] | ECON | [place] | | | | | [address] | | + + + + + Care Team Providers + +------+ + | Care Storage Wharfage Clerk Name | Role | Phone | + [...] | | | involving | [address] [place] | | | | | [place] | [place] | [place] | | | | | coronary | [address] | [address] | | | | | artery of | Phone: | Phone: | | | | | [place] heart | [phone] | [phone] | | | | | without | Fax: | Fax: | | | | | angina | [phone] | [phone] | | | | | pectoris | | | + + + + + + + Encounter Details +--------+---------+ + + + | Date | Type | Department | Care Team | Description | +--------+---------+ + + + | 09/28/ | Office | [facility] | Randy Figueroa, | Coronary artery | | 2019 | Visit | MED CTR CARDIAC | MD [address] | disease, angina | | | | REHABILITATION [address], | presence | | | | [address] [place] | [place] [address] | unspecified, | | | | [place] [address] | [phone] | unspecified vessel | | | | [phone] | | or lesion type, | | | | | | unspecified whether | | | | | | [place] or | | | | | | [...] this encounter Progress Notes Gael Woo - 09/28/2018 1000 PSTFormatting of this note may be different from the origin deFletcher [facility] CARDIAC REHABILITATION [address] [place] [address] Cardiac Rehab Date: 09/28/2018 Patient Information Patient Name: Bob Will Date of : 1955 Age: 62 y.o. Encounter Diagnoses Code Name Primary? I25.10 Coronary artery disease, angina presence unspecified, unspecified vessel or lesi on type, unspecified whether [place] or transplanted heart Yes Z98.61 Post PTCA Number of Visits Approved: 34 Taken Medications Today? Yes Any Changes in Medications? No Any Problems to Report? No Denies any adverse symptoms during exercise. Ventricular paced rhythm without ectopy. Pre O2: 95%, Ex O2: 95%. SBP prior to exercise 110 /60; during exercise 92/56, post exercise SBP 102/58. Compliant with medications and therapeutic lifestyle changes. Continue monitored exercise. Any abnormal vital signs or rhythm strips will be reported in progress note. Electronically signed by: Gael Woo, 09/28/2018 11:36 Patient Name: Bob Will/: 1955/ this enco unter Plan of Treatment +--------+ + + + + | Date | Type | Specialty | Care Team | Description | +--------+ + + + + | 12/14/ | Office | Cardiac | Randy Figueroa, | | | 2018 | Visit | Rehabilitation | MD [address] | | | | | | [place], | | | | | | [place] [address] | | | | | | [phone] | | | | | | | | +--------+ + + + + | 12/16/ | Office | Cardiac | Randy Figueroa, | | | 2018 | Visit | Rehabilitation | MD [address] | | | | | | [place], | | | | | | [place] [address] | | | | | | [phone] | | | | | | | | +--------+ + + + + | 12/21/ | Office | Cardiac | Randy Figueroa, | | | 2018 | Visit | Rehabilitation | MD [address] | | | | | | [place], | | | | | | [place] [address] | | | | | | [phone] | | | | | | | | +--------+ + + + + | 12/23/ | Office | Cardiac | Randy Figueroa, | | | 2018 | Visit | Rehabilitation | MD [address] | | | | | | [place], | | | | | | [place] [address] | | | | | | [phone] | | | | | | | | +--------+ + + + + | 12/28/ | Office | Cardiac | Randy Figueroa, | | | 2018 | Visit | Rehabilitation | MD [address] | | | | | | [place], | | | | | | [place] [address] | | | | | | [phone] | | | | | | | | +--------+ + + + + | 12/30/ | Office | Cardiac | Randy Figueroa, | | | 2018 | Visit | Rehabilitation | MD [address] | | | | | | [place], | | | | | | [place] [address] | | | | | | [phone] | | | | | | | | +--------+ + + + + | 01/04/ | Office | Cardiac | Randy Figueroa, | | | 2018 | Visit | Rehabilitation | MD [address] | | | | | | [place], | | | | | | [place] [address] | | | | | | [phone] | | | | | | | | +--------+ + + + + | 01/06/ | Office | Cardiac | Randy Figueroa, | | | 2018 | Visit | Rehabilitation | [address] | | | | | | [place], | | | | | | [place] [address] | | | | | | [phone] | | | | | | | | +--------+ + + + + | 01/11/ | Office | Cardiac | Randy Figueroa, | | | 2018 | Visit | Rehabilitation | MD [address] | | | | | | [place], | | | | | | [place] [address] | | | | | | [phone] | | | | | | | | +--------+ + + + + | 03/24/ | Procedure | Cardiology | | | | 2018 | visit | | | | +--------+ + + + + | 03/24/ | Office | Cardiology | Jenny, | | | 2018 | Visit | | ADARSH Santo [address] | | | | | | [place], | | | | | | [place] [address] | | | | | | [phone] | | | | | | | | +--------+ + + + + as of this encounter Visit Diagnoses + + | Diagnosis | + + | Coronary artery disease, angina presence unspecified, unspecified vessel or lesion | | type, unspecified whether [place] or transplanted heart - Primary | + + | Post PTCA | + + | Postsurgical percutaneous transluminal coronary angioplasty status | + +"
--- OUTSIDE RECORDS SUMMARY | ~2018-12-11 | XMS | Encounter Summary ---
Demographics + + + | Address | [address] | | | [place] [address] | + + + | Home Phone | | + + + | Preferred Language | Unknown | + + + | Marital Status | | + + + | Gnosticist Affiliation | Unknown | + + + | Race | Unknown | + + + | Ethnic Group | Unknown | + + + Author + + + | Author | [facility] | | | and [place] | + + + | Organization | [facility] | | | and [place] | + + + | Address | Unknown | + + + | Phone | Unavailable | + + + Support + + + + + | Name | Relationship | Address | Phone | + + + + + | [place] | ECON | [place] | | | | | [address] | | + + + + + Care Team Providers + +------+ + | Care Milling Machine Operator Gear Name | Role | Phone | + [...] | | | involving | [address] [place] | | | | | platinum | [place] | [place] | | | | | coronary | [address] | [address] | | | | | artery of | Phone: | Phone: | | | | | platinum heart | [phone] | [phone] | | | | | without | Fax: | Fax: | | | | | angina | [phone] | [phone] | | | | | pectoris | | | + + + + + + + Encounter Details +--------+---------+ + + + | Date | Type | Department | Care Team | Description | +--------+---------+ + + + | 09/21/ | Office | [facility] | Rahulyazshiraz Lindarahul, | Coronary artery | | 2019 | Visit | MED CTR CARDIAC | MD [address] | disease, angina | | | | REHABILITATION [address] | [facility], | presence | | | | [address] [place] | [place] [address] | unspecified, | | | | [place] [address] | [phone] | unspecified vessel | | | | [phone] | | or lesion type, | | | | | | unspecified whether | | | | | | platinum or | | | | | | [...] as of this encounter Progress Notes Ana Thomas RRT - 09/21/2018 1100 PSTFormatting of this note may be different from the original. [facility] CARDIAC REHABILITATION [address] [place] [address] Cardiac Rehab Date: 09/21/2018 Patient Information Patient Name: Bob Will Date of : 1955 Age: 62 y.o. Encounter Diagnoses Code Name Primary? I25.10 Coronary artery disease, angina presence unspecified, unspecified vessel or lesi on type, unspecified whether platinum or transplanted heart Yes Number of Visits Approved: 34 Taken Medications Today? Yes Any Changes in Medications? No Any Problems to Report? No Denies any adverse symptoms during exercise. Ventricular paced rhythm without ectopy. Pre O2: 95%, Ex O2: 95%. SBP prior to exercise 122 /80; during exercise 108/68. Compliant with medications and therapeutic lifestyle changes. Continue monitored exercise. Any abnormal vital signs or rhythm strips will be reported in progress note. Electronically signed by: Ana Thomas RRT, 09/21/2018 13:59 Patient Name: Bob Will/: 1955/ this enco unter Plan of Treatment +--------+ + + + + | Date | Type | Specialty | Care Team | Description | +--------+ + + + + | 12/14/ | Office | Cardiac | Randy Figueroa, | | | 2019 | Visit | Rehabilitation | MD [address] | | | | | | [place], | | | | | | [place] [address] | | | | | | [phone] | | | | | | | | +--------+ + + + + | 12/16/ | Office | Cardiac | Randy Figueroa, | | | 2018 | Visit | Rehabilitation | MD [address] | | | | | | [place], | | | | | | [place] [address] | | | | | | [phone] | | | | | | | | +--------+ + + + + | 12/21/ | Office | Cardiac | Randy Figueroa, | | | 2018 | Visit | Rehabilitation | MD [address] | | | | | | [place], | | | | | | [place] [address] | | | | | | [phone] | | | | | | | | +--------+ + + + + | 12/23/ | Office | Cardiac | Randy Figueroa, | | | 2018 | Visit | Rehabilitation | MD [address] | | | | | | [facility], | | | | | | [place] [address] | | | | | | [phone] | | | | | | | | +--------+ + + + + | 12/28/ | Office | Cardiac | Randy Figueroa, | | | 2018 | Visit | Rehabilitation | MD [address] | | | | | | [place], | | | | | | [place] [address] | | | | | | [phone] | | | | | | | | +--------+ + + + + | 12/30/ | Office | Cardiac | Randy Figueroa, | | | 2018 | Visit | Rehabilitation | MD [address] | | | | | | [place], | | | | | | [place] [address] | | | | | | [phone] | | | | | | | | +--------+ + + + + | 01/04/ | Office | Cardiac | Randy Figueroa, | | 2018 | Visit | Rehabilitation | MD [address] | | | | | | [place], | | | | | | [place] [address] | | | | | | [phone] | | | | | | | | +--------+ + + + + | 01/06/ | Office | Cardiac | Randy Figueroa, | | | 2018 | Visit | Rehabilitation | MD Jav[address] | | | | | | [place], | | | | | | [place] [address] | | | | | | [phone] | | | | | | | | +--------+ + + + + | 01/11/ | Office | Cardiac | Randy Figueroa, | | | 2018 | Visit | Rehabilitation | MD [address] | | | | | | [place], | | | | | | [place] [address] | | | | | | [phone] | | | | | | | | +--------+ + + + + | 03/24/ | Procedure | Cardiology | | | | 2018 | visit | | | | +--------+ + + + + | 03/24/ | Office | Cardiology | Jenny, | | | 2018 | Visit | | ADARSH Santo [address] | | | | | | [place], | | | | | | [place] [address] | | | | | | [phone] | | | | | | | | +--------+ + + + + as of this encounter Visit Diagnoses + + | Diagnosis | + + | Coronary artery disease, angina presence unspecified, unspecified vessel or lesion | | type, unspecified whether platinum or transplanted heart - Primary | + +"
--- OUTSIDE RECORDS SUMMARY | ~2018-12-11 | XMS | Encounter Summary ---
Demographics + + + | Address | [address] | | | [place] [address] | + + + | Home Phone | | + + + | Preferred Language | Unknown | + + + | Marital Status | | + + + | Scientologist Affiliation | Unknown | + + + | Race | Unknown | + + + | Ethnic Group | Unknown | + + + Author + + + | Author | [facility] | | | and [place] | + + + | Organization | [facility] | | | and [place] | + + + | Address | Unknown | + + + | Phone | Unavailable | + + + Support + + + + + | Name | Relationship | Address | Phone | + + + + + | [place] | E[place] | [place] | | | | | [address] | | + + + + + Care Team Providers + +------+ + | Care Nutrition Associate Name | Role | Phone | + +------+ + | Young Haque DO | PCP | | + +------+ + Encounter Details +--------+ + + + + | Date | Type | Department | Care Team | Description | +--------+ + + + + | 03/28/ | Abstract | [facility] [place] | Jenny, | | | 2019 | | CARDIOLOGY [address] | [place] COMMERCIAL CORRESPONDENT [address] | | | | | [place], | [place], | | | | | [place] [address] | [place] [address] | | | | | [phone] | [phone] | | | | | | | [...] Visit | Rehabilitation | MD [address] [place] | | | | | | [place], | | | | | | [place] [address] | | | | | | [phone] | | | | | | | | +--------+ + + + + | 12/16/ | Office | Cardiac | Randy Figueroa, | | | 2018 | Visit | Rehabilitation | MD [address] [place] | | | | | | [place], | | | | | | [place] [address] | | | | | | [phone] | | | | | | | | +--------+ + + + + | 12/21/ | Office | Cardiac | Randy Figueroa, | | | 2018 | Visit | Rehabilitation | MD [address] [place] | | | | | | [place], | | | | | | [place] [address] | | | | | | [phone] | | | | | | | | +--------+ + + + + | 12/23/ | Office | Cardiac | Randy Figueroa, | | | 2018 | Visit | Rehabilitation | MD [address] [place] | | | | | | [place], | | | | | | [place] [address] | | | | | | [phone] | | | | | | | | +--------+ + + + + | 12/28/ | Office | Cardiac | Randy Figueroa, | | | 2018 | Visit | Rehabilitation | MD [address] [place] | | | | | | [place], | | | | | | [place] [address] | | | | | | [phone] | | | | | | | | +--------+ + + + + | 12/30/ | Office | Cardiac | Randy Figueroa, | | | 2018 | Visit | Rehabilitation | MD [address] [place] | | | | | | [place], | | | | | | [place] [address] | | | | | | [phone] | | | | | | | | +--------+ + + + + | 01/04/ | Office | Cardiac | Randy Figueroa, | | | 2018 | Visit | Rehabilitation | MD [address] | | | | | | [place], | | | | | | [place] [address] | | | | | | [phone] | | | | | | | | +--------+ + + + + | 01/06/ | Office | Cardiac | Randy Figueroa, | | | 2018 | Visit | Rehabilitation | [address] [place] | | | | | | [place], | | | | | | [place] [address] | | | | | | [phone] | | | | | | | | +--------+ + + + + | 01/11/ | Office | Cardiac | Randy Figueroa, | | | 2018 | Visit | Rehabilitation | [address] | | | | | | [place], | | | | | | [place] [address] | | | | | | [phone] | | | | | | | | +--------+ + + + + | 03/24/ | Procedure | Cardiology | | | | 2018 | visit | | | | +--------+ + + + + | 03/24/ | Office | Cardiology | Jenny, | | | 2018 | Visit | | ADARSH Santo [address] | | | | | | [place], | | | | | | [place] [address] | | | | | | [phone] | | | | | | | [...] + + + in this encounter Results Basic Metabolic Panel [...] Lab: BUN (12/01/2018) + +--------+ + + | Component | Value | Ref Range | Performed At | + +--------+ + + | BUN, External | 37 (A) | 6 - 23 | | + +--------+ + + + + | Other Results Text | + + | [facility] | + + External Lab: Glucose (12/01/2018) + +---------+ + + | Component | Value | Ref Range | Performed At | + +---------+ + + | Glucose, External | 107 (A) | 70 - 100 | | + +---------+ + + + + | Other Results Text | + + | [facility] | + + External Lab: Calcium (12/01/2018) + +-------+ + + | Component [...] Lab: Chloride (12/01/2018) + +-------+ + + | Component | Value | Ref Range | Performed At | + +-------+ + + | Chloride, External | 101 | 95 - 112 | | + +-------+ + + + + | Other Results Text | + + | [facility] | + + External Lab: Potassium (12/01/2018) + +-------+ + + | Component | Value | Ref Range | Performed At | + +-------+ + + | Potassium, External | 5.1 | 3.6 - 5.1 | | + +-------+ + + + + | Other Results Text | + + | [facility] | + + External Lab: Sodium (12/01/2018) + +-------+ + + | Component | Value | Ref Range | Performed At | + +-------+ + + | Sodium, External | 139 | 132 - 143 | | + +-------+ + + + + | Other Results Text | + + | [facility] | + + External Lab: eGFR (12/01/2018) + +--------+ + + | Component | [...] Creatinine (12/01/2018) + + + + + | Component [...] + + | [facility] | + + in this encounter Visit Diagnoses Not on filein this encounter"
--- OUTSIDE RECORDS SUMMARY | ~2018-12-11 | XMS | Encounter Summary ---
Demographics + + + | Address | [address] | | | [place] [address] | + + + | Home Phone | | + + + | Preferred Language | Unknown | + + + | Marital Status | | + + + | Confucianist Affiliation | Unknown | + + + | Race | Unknown | + + + | Ethnic Group | Unknown | + + + Author + + + | Author | [facility] | | | and [place] | + + + | Organization | [facility] | | | and [place] | + + + | Address | Unknown | + + + | Phone | Unavailable | + + + Support + + + + + | Name | Relationship | Address | Phone | + + + + + | Venice Will | ECON | [place] | | | | | [address] | | + + + + + Care Team Providers + +------+ + | Care Real Estate Attorney Name | Role | Phone | + [...] + | 10/27/ | Telephone | [facility] | Jenny, | Other (medication | | 2018 | | CARDIOLOGY [address] | ADARSH [address] | issue) | | | | [place], | [place], | | | | | [place] [address] | [place] [address] | | | | | [phone] | [phone] | | | | | | | [...] | | | | | | [place] [address] | | | | | | [phone] | | | | | | | | +--------+ + + + + | 12/16/ | Office | Cardiac | Randy Figueroa, | | | 2018 | Visit | Rehabilitation | MD [address] | | | | | | [place], | | | | | | [place] [address] | | | | | | [phone] | | | | | | | | +--------+ + + + + | 12/21/ | Office | Cardiac | Randy Figueroa, | | | 2018 | Visit | Rehabilitation | MD J[address] | | | | | | [place], | | | | | | [place] [address] | | | | | | [phone] | | | | | | | | +--------+ + + + + | 12/23/ | Office | Cardiac | Randy Figueroa, | | | 2018 | Visit | Rehabilitation | MD [address] [place] | | | | | | [place], | | | | | | [place] [address] | | | | | | [phone] | | | | | | | | +--------+ + + + + | 12/28/ | Office | Cardiac | Randy Figueroa, | | | 2018 | Visit | Rehabilitation | MD [address] [place] | | | | | | [place], | | | | | | [place] [address] | | | | | | [phone] | | | | | | | | +--------+ + + + + | 12/30/ | Office | Cardiac | Randy Figueroa, | | | 2018 | Visit | Rehabilitation | MD [address] [place] | | | | | | [place], | | | | | | [place] [address] | | | | | | [phone] | | | | | | | | +--------+ + + + + | 01/04/ | Office | Cardiac | Randy Figueroa, | | | 2018 | Visit | Rehabilitation | MD [address] [place] | | | | | | [place], | | | | | | [place] [address] | | | | | | [phone] | | | | | | | | +--------+ + + + + | 01/06/ | Office | Cardiac | Randy Figueroa, | | | 2018 | Visit | Rehabilitation | MD [address] [place] | | | | | | [place], | | | | | | [place] [address] | | | | | | [phone] | | | | | | | | +--------+ + + + + | 01/11/ | Office | Cardiac | Randy Figueroa, | | | 2018 | Visit | Rehabilitation | MD [address] [place] | | | | | | [place], | | | | | | [place] [address] | | | | | | [phone] | | | | | | | | +--------+ + + + + | 03/24/ | Procedure | Cardiology | | | | 2018 | visit | | | | +--------+ + + + + | 03/24/ | Office | Cardiology | Jenny, | | | 2018 | Visit | | ADARSH Santo [address] | | | | | | [place], | | | | | | [place] [address] | | | | | | [phone] | | | | | | | [...]
--- OUTSIDE RECORDS SUMMARY | ~2018-12-11 | XMS | Encounter Summary ---
Demographics + + + | Address | [address] | | | [place] [address] | + + + | Home Phone | | + + + | Preferred Language | Unknown | + + + | Marital Status | | + + + | Buddhist Affiliation | Unknown | + + + | Race | Unknown | + + + | Ethnic Group | Unknown | + + + Author + + + | Author | [facility] | | | and [place] | + + + | Organization | [facility] | | | and [place] | + + + | Address | Unknown | + + + | Phone | Unavailable | + + + Support + + + + + | Name | Relationship | Address | Phone | + + + + + | [place] Will | ECON | [place] | | | | | [address] | | + + + + + Care Team Providers + +------+ + | Care Dog Pound Attendant Name | Role | Phone | [...] | 12/06/ | Refill | [facility] | Jenny, | Medication Refill | | 2018 | | CARDIOLOGY [address] | ADARSH S[address] | | | | | [place], | [place], | | | | | [place] [address] | [place] [address] | | | | | [phone] | [phone] | | | | | | | [...] | | | | | | [place] [address] | | | | | | [phone] | | | | | | | | +--------+ + + + + | 12/16/ | Office | Cardiac | Randy Figueroa, | | | 2018 | Visit | Rehabilitation | MD [address]av[address]resp[address] | | | | | | [place], | | | | | | [place] [address] | | | | | | [phone] | | | | | | | | +--------+ + + + + | 12/21/ | Office | Cardiac | Randy Figueroa, | | | 2018 | Visit | Rehabilitation | MD [address]av[address] | | | | | | [place], | | | | | | [place] [address] | | | | | | [phone] | | | | | | | | +--------+ + + + + | 12/23/ | Office | Cardiac | Randy Figueroa, | | | 2018 | Visit | Rehabilitation | MD [address] [place] | | | | | | [place], | | | | | | [place] [address] | | | | | | [phone] | | | | | | | | +--------+ + + + + | 12/28/ | Office | Cardiac | Randy Figueroa, | | | 2018 | Visit | Rehabilitation | MD [address] | | | | | | [place], | | | | | | [place] [address] | | | | | | [phone] | | | | | | | | +--------+ + + + + | 12/30/ | Office | Cardiac | Randy Figueroa, | | | 2018 | Visit | Rehabilitation | MD [address] | | | | | | [place], | | | | | | [place] [address] | | | | | | [phone] | | | | | | | | +--------+ + + + + | 01/04/ | Office | Cardiac | Randy Figueroa, | | | 2018 | Visit | Rehabilitation | MD [address] | | | | | | [place], | | | | | | [place] [address] | | | | | | [phone] | | | | | | | | +--------+ + + + + | 01/06/ | Office | Cardiac | Randy Figueroa, | | | 2018 | Visit | Rehabilitation | MD [address] | | | | | | [place], | | | | | | [place] [address] | | | | | | [phone] | | | | | | | | +--------+ + + + + | 01/11/ | Office | Cardiac | Randy Figueroa, | | | 2018 | Visit | Rehabilitation | MD [address] | | | | | | [place], | | | | | | [place] [address] | | | | | | [phone] | | | | | | | [...] | | | | | | [place] [address] | | | | | | [phone] | | | | | | | | +--------+ + + + + as of this encounter Visit Diagnoses Not on filein this encounter"
--- OUTSIDE RECORDS SUMMARY | ~2018-12-11 | XMS | Encounter Summary ---
Demographics + + + | Address | [address] | | | [place] [address] | + + + | Home Phone [...] | [place] | | | | | [address] | | + + + + + Care Team Providers + +------+ + | Care Life Enrichment Director Name | Role | Phone | [...] | | | involving | [address] [place] | | | | | [place] | [place] [address] | [place] | | | | | coronary | [address] | [address] | | | | | artery of | Phone: | Phone: | | | | | [place] heart | [phone] | [phone] | | | | | without | Fax: | Fax: | | | | | angina | [phone] | [phone] | | | | | pectoris | | | + + + + + + + Encounter Details +--------+---------+ + + + | Date | Type | Department | Care Team | Description | +--------+---------+ + + + | 12/02/ | Office | [facility] | Randy Figueroa, | Coronary artery | | 2019 | Visit | MED CTR CARDIAC | MD [address] | disease involving | | | | REHABILITATION [address] | [place], | [place] coronary | | | | [address] [place] | [place] [address] | artery of [place] | | | | [place] [address] | [phone] | heart without angina | | | | [phone] | | pectoris (Primary | | | [...] may be different from the origin al. [facility] MED CTR CARDIAC REHABILITATION [address] [place] [address] Cardiac Rehab Date: 12/02/2018 Patient Information Patient Name: Bob Will Date of : 1955 Age: 63 y.o. Encounter Diagnoses Code Name Primary? I25.10 Coronary artery disease involving [place] coronary artery of [place] heart without angina pectoris Yes Z98.61 Post [...] Visit | Rehabilitation | MD [address] | | | | | | [place], | | | | | | [place] [address] | | | | | | [phone] | | | | | | | | +--------+ + + + + | 12/16/ | Office | Cardiac | Randy Figueroa, | | | 2018 | Visit | Rehabilitation | MD [address] | | | | | | [place], | | | | | | [place] [address] | | | | | | [phone] | | | | | | | | +--------+ + + + + | 12/21/ | Office | Cardiac | Randy Figueroa, | | | 2018 | Visit | Rehabilitation | MD [address] | | | | | | [place], | | | | | | [place] [address] | | | | | | [phone] | | | | | | | | +--------+ + + + + | 12/23/ | Office | Cardiac | Randy Figueroa, | | | 2018 | Visit | Rehabilitation | MD [address] | | | | | | [place], | | | | | | [place] [address] | | | | | | [phone] | | | | | | | | +--------+ + + + + | 12/28/ | Office | Cardiac | Randy Figueroa, | | | 2018 | Visit | Rehabilitation | MD [address] | | | | | | [place], | | | | | | [place] [address] | | | | | | [phone] | | | | | | | | +--------+ + + + + | 12/30/ | Office | Cardiac | Randy Figueroa, | | | 2018 | Visit | Rehabilitation | MD [address] | | | | | | [place], | | | | | | [place] [address] | | | | | | [phone] | | | | | | | | +--------+ + + + + | 01/04/ | Office | Cardiac | Randy Figueroa, | | | 2018 | Visit | Rehabilitation | MD [address] | | | | | | [place], | | | | | | [place] [address] | | | | | | [phone] | | | | | | | | +--------+ + + + + | 01/06/ | Office | Cardiac | Randy Figueroa, | | | 2018 | Visit | Rehabilitation | MD Jav[address] | | | | | | [place], | | | | | | [place] [address] | | | | | | [phone] | | | | | | | | +--------+ + + + + | 01/11/ | Office | Cardiac | Randy Figueroa, | | | 2018 | Visit | Rehabilitation | MD [address] | | | | | | [place], | | | | | | [place] [address] | | | | | | [phone] | | | | | | | | +--------+ + + + + | 03/24/ | Procedure | Cardiology | | | | 2018 | visit | | | | +--------+ + + + + | 03/24/ | Office | Cardiology | [place], | | | 2018 | Visit | | ADARSH Santo [address] | | | | | | [place], | | | | | | [place] [address] | | | | | | [phone] | | | | | | | | +--------+ + + + + as of this encounter Visit Diagnoses + + | Diagnosis | + + | Coronary artery disease involving [place] coronary artery of [place] heart without | | angina pectoris - Primary | + + | Post PTCA | + + | Postsurgical percutaneous transluminal coronary angioplasty status | + +"
--- OUTSIDE RECORDS SUMMARY | ~2018-12-11 | XMS | Encounter Summary ---
Demographics + + + | Address | [address] | | | [place] [address] | + + + | Home Phone | | + + + | Preferred Language | Unknown | + + + | Marital Status | | + + + | Quaker Affiliation | Unknown | + + + | Race | Unknown | + + + | Ethnic Group | Unknown | + + + Author + + + | Author | [facility] | | | and [place] | + + + | Organization | [facility] | | | and [place] | + + + | Address | Unknown | + + + | Phone | Unavailable | + + + Support + + + + + | Name | Relationship | Address | Phone | + + + + + | [place] Will | ECON | [place] | | | | | [address] | | + + + + + Care Team Providers + +------+ + | Care Procurement Technician Name | Role | Phone | [...] + + | 10/07/ | Telephone | [facility] | Jenny, | Blood Pressure | | 2019 | | CARDIOLOGY [address] | [place], INVENTORY CONTROL MANAGER [address] | | | | | [place], | [place], | | | | | [place] [address] | [place] [address] | | | | | [phone] | [phone] | | | | | | | [...] | | | | | | [place] [address] | | | | | | [phone] | | | | | | | | +--------+ + + + + | 12/16/ | Office | Cardiac | Randy Figueroa, | | | 2018 | Visit | Rehabilitation | MD Javid Crespo | | | | | | [place], | | | | | | [place] [address] | | | | | | [phone] | | | | | | | | +--------+ + + + + | 12/21/ | Office | Cardiac | Randy Figueroa, | | | 2018 | Visit | Rehabilitation | MD Jav[address]resp[address] | | | | | | [place], | | | | | | [place] [address] | | | | | | [phone] | | | | | | | | +--------+ + + + + | 12/23/ | Office | Cardiac | Randy Figueroa, | | | 2018 | Visit | Rehabilitation | MD [address] [place] | | | | | | [place], | | | | | | [place] [address] | | | | | | [phone] | | | | | | | | +--------+ + + + + | 12/28/ | Office | Cardiac | Randy Figueroa, | | | 2018 | Visit | Rehabilitation | MD [address] [place] | | | | | | [place], | | | | | | [place] [address] | | | | | | [phone] | | | | | | | | +--------+ + + + + | 12/30/ | Office | Cardiac | Randy Figueroa, | | | 2018 | Visit | Rehabilitation | MD [address] [place] | | | | | | [place], | | | | | | [place] [address] | | | | | | [phone] | | | | | | | | +--------+ + + + + | 01/04/ | Office | Cardiac | Randy Figueroa, | | | 2018 | Visit | Rehabilitation | MD [address] [place] | | | | | | [place], | | | | | | [place] [address] | | | | | | [phone] | | | | | | | | +--------+ + + + + | 01/06/ | Office | Cardiac | Randy Figueroa, | | | 2018 | Visit | Rehabilitation | MD [address] [place] | | | | | | [place], | | | | | | [place] [address] | | | | | | [phone] | | | | | | | | +--------+ + + + + | 01/11/ | Office | Cardiac | Randy Figueroa, | | | 2018 | Visit | Rehabilitation | MD [address] [place] | | | | | | [place], | | | | | | [place] [address] | | | | | | [phone] | | | | | | | [...] [place], | | | | | | [place] [address] | | | | | | [phone] | | | | | | | | +--------+ + + + + as of this encounter Visit Diagnoses Not on filein this encounter"
--- OUTSIDE RECORDS SUMMARY | ~2018-12-11 | XMS | Encounter Summary ---
Demographics + + + | Address | [address] | | | [place] [address] | + + + | Home Phone [...] + | Author | [facility] | | | and [place] | + + + | Organization | [facility] | | | and [place] | + + + | Address | Unknown | + + + | Phone | Unavailable | + + + Support + + + + + | Name | Relationship | Address | Phone | + + + + + | [place] Will | ECON | [place] | | | | | [address] | | + + + + + Care Team Providers + +------+ + | Care Snack Stewardess Name | Role | Phone | + [...] | | | involving | [address] | [place] | | | | | [place] | [place] [address] | [place] | | | | | coronary | [address] | [address] | | | | | artery of | Phone: | Phone: | | | | | [place] heart | [phone] | [phone] | | | | | without | Fax: | Fax: | | | | | angina | [phone] | [phone] | | | | | pectoris | | | + + + + + + + Encounter Details +--------+---------+ + + + | Date | Type | Department | Care Team | Description | +--------+---------+ + + + | 12/07/ | Office | [facility] | Randy Figueroa, | Coronary artery | | 2019 | Visit | MED CTR CARDIAC | MD [address] | disease involving | | | | REHABILITATION [address] | [address] [place], | [place] coronary | | | | [place] | [place] [address] | artery of [place] | | | | [place] [address] | [phone] | heart without angina | | | | [phone] | | pectoris (Primary | | | [...] this encounter Progress Notes Gael Woo - 12/07/2018 1000 PDTFormatting of this note may be different from the origin al. [facility] MED CTR CARDIAC REHABILITATION [address] [place] [address] Cardiac Rehab Date: 12/07/2018 Patient Information Patient Name: Bob Will Date of : 1955 Age: 63 y.o. Encounter Diagnoses Code Name Primary? I25.10 Coronary artery disease involving [place] coronary artery of [place] heart without angina pectoris Yes Z98.61 Post [...] 12/07/2018 14:23 Patient Name: Bob Will/: 1955/ this enco unter Plan of Treatment +--------+ + + + + | Date | Type | Specialty | Care Team | Description | +--------+ + + + + | 12/14/ | Office | Cardiac | Randy Figueroa, | | | 2019 | Visit | Rehabilitation | MD [address] | | | | | | [place], | | | | | | [place] [address] | | | | | | [phone] | | | | | | | | +--------+ + + + + | 12/16/ | Office | Cardiac | Randy Figueroa, | | | 2018 | Visit | Rehabilitation | MD [address] | | | | | | [place], | | | | | | [place] [address] | | | | | | [phone] | | | | | | | | +--------+ + + + + | 12/21/ | Office | Cardiac | Randy Figueroa, | | | 2018 | Visit | Rehabilitation | MD [address] | | | | | | [place], | | | | | | [place] [address] | | | | | | [phone] | | | | | | | | +--------+ + + + + | 12/23/ | Office | Cardiac | Randy Figueroa, | | | 2018 | Visit | Rehabilitation | MD [address] | | | | | | [place], | | | | | | [place] [address] | | | | | | [phone] | | | | | | | | +--------+ + + + + | 12/28/ | Office | Cardiac | Randy Figueroa, | | | 2018 | Visit | Rehabilitation | MD [address] [place] | | | | | | [place], | | | | | | [place] [address] | | | | | | [phone] | | | | | | | | +--------+ + + + + | 12/30/ | Office | Cardiac | Randy Figueroa, | | | 2018 | Visit | Rehabilitation | MD [address] | | | | | | [place], | | | | | | [place] [address] | | | | | | [phone] | | | | | | | | +--------+ + + + + | 01/04/ | Office | Cardiac | Randy Figueroa, | | | 2018 | Visit | Rehabilitation | MD [address] | | | | | | [place], | | | | | | [place] [address] | | | | | | [phone] | | | | | | | | +--------+ + + + + | 01/06/ | Office | Cardiac | Randy Figueroa, | | | 2018 | Visit | Rehabilitation | MD Jav[address] | | | | | | [place], | | | | | | [place] [address] | | | | | | [phone] | | | | | | | | +--------+ + + + + | 01/11/ | Office | Cardiac | Randy Figueroa, | | | 2018 | Visit | Rehabilitation | MD [address] | | | | | | [place], | | | | | | [place] [address] | | | | | | [phone] | | | | | | | | +--------+ + + + + | 03/24/ | Procedure | Cardiology | | | | 2018 | visit | | | | +--------+ + + + + | 03/24/ | Office | Cardiology | Jenny, | | | 2018 | Visit | | HansaADARSH [address] | | | | | | [place], | | | | | | [place] [address] | | | | | | [phone] | | | | | | | | +--------+ + + + + as of this encounter Visit Diagnoses + + | Diagnosis | + + | Coronary artery disease involving [place] coronary artery of [place] heart without | | angina pectoris - Primary | + + | Post PTCA | + + | Postsurgical percutaneous transluminal coronary angioplasty status | + +"
--- OUTSIDE RECORDS SUMMARY | ~2018-12-11 | XMS | Encounter Summary ---
Demographics + + + | Address | [address] | | | [place] [address] | + + + | Home Phone | | + + + | Preferred Language | Unknown | + + + | Marital Status | | + + + | Religion Affiliation | Unknown | + + + | Race | Unknown | + + + | Ethnic Group | Unknown | + + + Author + + + | Author | [facility] | | | and [place] | + + + | Organization | [facility] | | | and [place] | + + + | Address | Unknown | + + + | Phone | Unavailable | + + + Support + + + + + | Name | Relationship | Address | Phone | + + + + + | [place] Will | ECON | [place] | | | | | [address] | | + + + + + Care Team Providers + +------+ + | Care Laser Set Up Operator Name | Role | [...] | | | involving | [address] | [place] | | | | | [place] | MARK[place]CGUIRE | [place] | | | | | coronary | [address] | [address] | | | | | artery of | Phone: | Phone: | | | | | [place] heart | [phone] | [phone] | | | | | without | Fax: | Fax: | | | | | angina | [phone] | [phone] | | | | | pectoris | | | + + + + + + + Encounter Details +--------+---------+ + + + | Date | Type | Department | Care Team | Description | +--------+---------+ + + + | 11/09/ | Office | [facility] | Randy Figueroa, | Coronary artery | | 2019 | Visit | MED CTR CARDIAC | MD [address] | disease involving | | | | REHABILITATION [address] | [place] [place], | [place] coronary | | | | [place] | [place] [address] | artery of [place] | | | | [place] [address] | [phone] | heart without angina | | | | [phone] | | pectoris (Primary | | | [...] CTR CARDIAC REHABILITATION [address] [place] [address] Cardiac Rehab Date: 11/09/2018 Patient Information Patient Name: Bob Will Date of : 1955 Age: 63 y.o. Encounter Diagnoses Code Name Primary? I25.10 Coronary artery disease involving [place] coronary artery of [place] heart without angina pectoris Yes Number of [...] | | | | | | [place], | | | | | | [place] [address] | | | | | | [phone] | | | | | | | | +--------+ + + + + | 12/16/ | Office | Cardiac | Randy Figueroa, | | | 2018 | Visit | Rehabilitation | MD [address] | | | | | | [place], | | | | | | [place] [address] | | | | | | [phone] | | | | | | | | +--------+ + + + + | 12/21/ | Office | Cardiac | Randy Figueroa, | | | 2018 | Visit | Rehabilitation | MD [address] | | | | | | [place], | | | | | | [place] [address] | | | | | | [phone] | | | | | | | | +--------+ + + + + | 12/23/ | Office | Cardiac | Randy Figueroa, | | | 2018 | Visit | Rehabilitation | MD [address] | | | | | | [place], | | | | | | [place] [address] | | | | | | [phone] | | | | | | | | +--------+ + + + + | 12/28/ | Office | Cardiac | Randy Figueroa, | | | 2018 | Visit | Rehabilitation | MD [address] | | | | | | [place], | | | | | | [place] [address] | | | | | | [phone] | | | | | | | | +--------+ + + + + | 12/30/ | Office | Cardiac | Randy Figueroa, | | | 2018 | Visit | Rehabilitation | MD [address] | | | | | | [place], | | | | | | [place] [address] | | | | | | [phone] | | | | | | | | +--------+ + + + + | 01/04/ | Office | Cardiac | Randy Figueroa, | | | 2018 | Visit | Rehabilitation | MD [address] | | | | | | [place], | | | | | | [place] [address] | | | | | | [phone] | | | | | | | | +--------+ + + + + | 01/06/ | Office | Cardiac | Randy Figueroa, | | | 2018 | Visit | Rehabilitation | MD [address] | | | | | | [place], | | | | | | [place] [address] | | | | | | [phone] | | | | | | | | +--------+ + + + + | 01/11/ | Office | Cardiac | Randy Figueroa, | | | 2018 | Visit | Rehabilitation | MD [address] | | | | | | [place], | | | | | | [place] [address] | | | | | | [phone] | | | | | | | [...] | | | | | | [place] [address] | | | | | | [phone] | | | | | | | | +--------+ + + + + as of this encounter Visit Diagnoses + + | Diagnosis | + + | Coronary artery disease involving [place] coronary artery of [place] heart without | | angina pectoris - Primary | + +"
--- OUTSIDE RECORDS SUMMARY | ~2018-12-11 | XMS | Encounter Summary ---
Demographics + + + | Address | [address] | | | [place] [address] | + + + | Home Phone | | + + + | Preferred Language | Unknown | + + + | Marital Status | | + + + | Denominational Affiliation | Unknown | + + + | Race | Unknown | + + + | Ethnic Group | Unknown | + + + Author + + + | Author | [facility] | | | and [place] | + + + | Organization | [facility] | | | and [place] | + + + | Address | Unknown | + + + | Phone | Unavailable | + + + Support + + + + + | Name | Relationship | Address | Phone | + + + + + | [place] Will | ECON | [place] | | | | | [address] | | + + + + + Care Team Providers + +------+ + | Care Bookkeeping Machine Mechanic Name | Role | Phone | [...] | | | involving | [address] [place] | | | | | [facility] | [place] | [place] | | | | | coronary | [address] | [address] | | | | | artery of | Phone: | Phone: | | | | | holy cross heart | [phone] | [phone] | | | | | without | Fax: | Fax: | | | | | angina | [phone] | [phone] | | | | | pectoris | | | + + + + + + + Encounter Details +--------+---------+ + + + | Date | Type | Department | Care Team | Description | +--------+---------+ + + + | 12/02/ | Office | [facility] | Randy Figueroa, | Coronary artery | | 2019 | Visit | MED CTR CARDIAC | MD [address] | disease involving | | | | REHABILITATION [address] | [place] [place], | holy cross coronary | | | | [address] [place] | [place] [address] | artery of holy cross | | | | [place] [address] | [phone] | heart without angina | | | | [phone] | | pectoris (Primary | | | [...] may be different from the origin al. [facility] MED CTR CARDIAC REHABILITATION [address] [place] [address] Cardiac Rehab Date: 12/02/2018 Patient Information Patient Name: Bob Will Date of : 1955 Age: 63 y.o. Encounter Diagnoses Code Name Primary? I25.10 Coronary artery disease involving holy cross coronary artery of [facility] cross heart without angina pectoris Yes Z98.61 Post [...] Visit | Rehabilitation | MD [address] | | | | | | [place], | | | | | | [place] [address] | | | | | | [phone] | | | | | | | | +--------+ + + + + | 12/16/ | Office | Cardiac | Randy Figueroa, | | | 2018 | Visit | Rehabilitation | MD [address] | | | | | | [place], | | | | | | [place] [address] | | | | | | [phone] | | | | | | | | +--------+ + + + + | 12/21/ | Office | Cardiac | Randy Figueroa, | | | 2018 | Visit | Rehabilitation | MD [address] | | | | | | [place], | | | | | | [place] [address] | | | | | | [phone] | | | | | | | | +--------+ + + + + | 12/23/ | Office | Cardiac | Randy Figueroa, | | | 2018 | Visit | Rehabilitation | MD [address] | | | | | | [place], | | | | | | [place] [address] | | | | | | [phone] | | | | | | | | +--------+ + + + + | 12/28/ | Office | Cardiac | Randy Figueroa, | | | 2018 | Visit | Rehabilitation | MD [address] | | | | | | [place], | | | | | | [place] [address] | | | | | | [phone] | | | | | | | | +--------+ + + + + | 12/30/ | Office | Cardiac | Randy Figueroa, | | | 2018 | Visit | Rehabilitation | MD [address] | | | | | | [place], | | | | | | [place] [address] | | | | | | [phone] | | | | | | | | +--------+ + + + + | 01/04/ | Office | Cardiac | Randy Figueroa, | | | 2018 | Visit | Rehabilitation | MD [address] | | | | | | [place], | | | | | | [place] [address] | | | | | | [phone] | | | | | | | | +--------+ + + + + | 01/06/ | Office | Cardiac | Randy Figueroa, | | | 2018 | Visit | Rehabilitation | MD [address] | | | | | | [place], | | | | | | [place] [address] | | | | | | [phone] | | | | | | | | +--------+ + + + + | 01/11/ | Office | Cardiac | Randy Figueroa, | | | 2018 | Visit | Rehabilitation | MD [address] | | | | | | [place], | | | | | | [place] [address] | | | | | | [phone] | | | | | | | | +--------+ + + + + | 03/24/ | Procedure | Cardiology | | | | 2018 | visit | | | | +--------+ + + + + | 03/24/ | Office | Cardiology | [place], | | | 2018 | Visit | | ADARSH Santo [address] | | | | | | [place], | | | | | | [place] [address] | | | | | | [phone] | | | | | | | | +--------+ + + + + as of this encounter Visit Diagnoses + + | Diagnosis | + + | Coronary artery disease involving holy cross coronary artery of [facility] cross heart without | | angina pectoris - Primary | + + | Post PTCA | + + | Postsurgical percutaneous transluminal coronary angioplasty status | + +"
--- OUTSIDE RECORDS SUMMARY | ~2018-12-11 | XMS | Encounter Summary ---
Demographics + + + | Address | [address] | | | [place] [address] | + + + | Home Phone [...] [place] | | | | | [address] | | + + + + + Care Team Providers + +------+ + | Care Orthopedic Radiologic Technologist Name | Role | Phone | + +------+ + | Young Haque DO | PCP | | + +------+ + Encounter Details +--------+ + + + + | Date | Type | Department | Care Team | Description | +--------+ + + + + | 03/28/ | Abstract | [facility] [place] | Jenny, | | | 2019 | | CARDIOLOGY [address] | [address] [employer] CLEANER [address] | | | | | [place], | [place], | | | | | [place] [address] | [place] [address] | | | | | [phone] | [phone] | | | | | | | [...] Visit | Rehabilitation | MD [address] [place] | | | | | | [place], | | | | | | [place] [address] | | | | | | [phone] | | | | | | | | +--------+ + + + + | 12/16/ | Office | Cardiac | Randy Figueroa, | | | 2018 | Visit | Rehabilitation | MD [address] [place] | | | | | | [place], | | | | | | [place] [address] | | | | | | [phone] | | | | | | | | +--------+ + + + + | 12/21/ | Office | Cardiac | Randy Figueroa, | | | 2018 | Visit | Rehabilitation | MD [address] [place] | | | | | | [place], | | | | | | [place] [address] | | | | | | [phone] | | | | | | | | +--------+ + + + + | 12/23/ | Office | Cardiac | Randy Figueroa, | | | 2018 | Visit | Rehabilitation | MD [address] [place] | | | | | | [place], | | | | | | [place] [address] | | | | | | [phone] | | | | | | | | +--------+ + + + + | 12/28/ | Office | Cardiac | Ranyd Figueroa, | | | 2018 | Visit | Rehabilitation | MD [address] [place] | | | | | | [place], | | | | | | [place] [address] | | | | | | [phone] | | | | | | | | +--------+ + + + + | 12/30/ | Office | Cardiac | Randy Figueroa, | | | 2018 | Visit | Rehabilitation | MD [address] [place] | | | | | | [place], | | | | | | [place] [address] | | | | | | [phone] | | | | | | | | +--------+ + + + + | 01/04/ | Office | Cardiac | Randy Figueroa, | | | 2018 | Visit | Rehabilitation | MD [address] | | | | | | [place], | | | | | | [place] [address] | | | | | | [phone] | | | | | | | | +--------+ + + + + | 01/06/ | Office | Cardiac | Randy Figueroa, | | | 2018 | Visit | Rehabilitation | [address] [place] | | | | | | [place], | | | | | | [place] [address] | | | | | | [phone] | | | | | | | | +--------+ + + + + | 01/11/ | Office | Cardiac | Randy Figueroa, | | | 2018 | Visit | Rehabilitation | [address] | | | | | | [place], | | | | | | [place] [address] | | | | | | [phone] | | | | | | | | +--------+ + + + + | 03/24/ | Procedure | Cardiology | | | | 2018 | visit | | | | +--------+ + + + + | 03/24/ | Office | Cardiology | Jenny, | | | 2018 | Visit | | ADARSH Santo [address] | | | | | | [place], | | | | | | [place] [address] | | | | | | [phone] | | | | | | | [...]
--- OUTSIDE RECORDS SUMMARY | ~2018-12-11 | XMS | Encounter Summary ---
Demographics + + + | Address | [address] | | | [place] [address] | + + + | Home Phone [...] + + | Author | [facility] | | | and [place] | + + + | Organization | [facility] | | | and [place] | + + + | Address | Unknown | + + + | Phone | Unavailable | + + + Support + + + + + | Name | Relationship | Address | Phone | + + + + + | [place] Will | ECON | [place] | | | | | [address] | | + + + + + Care Team Providers + +------+ + | Care Mixing Pan Tender Name | Role | Phone | + +------+ + | Young Haque DO | PCP | | + +------+ + Reason for Visit +--------+ + | Reason | Comments | +--------+ + | Other | | +--------+ + Encounter Details +--------+ + + + + | Date | Type | Department | Care Team | Description | +--------+ + + + + | 10/04/ | Telephone | [facility] [place] | Randy Figueroa, | Other | | 2018 | | CARDIOLOGY [address] | [address] | | | | | [place], | [place], | | | | | [place] [address] | [place] [address] | | | | | [phone] | [phone] | | | | | | | [...] Visit | Rehabilitation | MD [address] [place] | | | | | | [place], | | | | | | [place] [address] | | | | | | [phone] | | | | | | | | +--------+ + + + + | 12/16/ | Office | Cardiac | Randy Figueroa, | | | 2018 | Visit | Rehabilitation | MD [address] [place] | | | | | | [place], | | | | | | [place] [address] | | | | | | [phone] | | | | | | | | +--------+ + + + + | 12/21/ | Office | Cardiac | Randy Figueroa, | | | 2018 | Visit | Rehabilitation | MD [address] [place] | | | | | | [place], | | | | | | [place] [address] | | | | | | [phone] | | | | | | | | +--------+ + + + + | 12/23/ | Office | Cardiac | Randy Figueroa, | | | 2018 | Visit | Rehabilitation | MD [address] | | | | | | [place], | | | | | | [place] [address] | | | | | | [phone] | | | | | | | | +--------+ + + + + | 12/28/ | Office | Cardiac | Randy Figueroa, | | | 2018 | Visit | Rehabilitation | MD [address] | | | | | | [place], | | | | | | [place] [address] | | | | | | [phone] | | | | | | | | +--------+ + + + + | 12/30/ | Office | Cardiac | Randy Figueroa, | | | 2018 | Visit | Rehabilitation | MD [address] | | | | | | [place], | | | | | | [place] [address] | | | | | | [phone] | | | | | | | | +--------+ + + + + | 01/04/ | Office | Cardiac | Randy Figueroa, | | | 2018 | Visit | Rehabilitation | MD [address] | | | | | | [place], | | | | | | [place] [address] | | | | | | [phone] | | | | | | | | +--------+ + + + + | 01/06/ | Office | Cardiac | Randy Figueroa, | | | 2018 | Visit | Rehabilitation | MD [address] | | | | | | [place], | | | | | | [place] [address] | | | | | | [phone] | | | | | | | | +--------+ + + + + | 01/11/ | Office | Cardiac | Randy Figueroa, | | | 2018 | Visit | Rehabilitation | MD [address] | | | | | | [place], | | | | | | [place] [address] | | | | | | [phone] | | | | | | | [...] | | | | | | [place] [address] | | | | | | [phone] | | | | | | | | +--------+ + + + + as of this encounter Visit Diagnoses Not on filein this encounter"
--- OUTSIDE RECORDS SUMMARY | ~2018-12-11 | XMS | Encounter Summary ---
Demographics + + + | Address | [address] | | | [place] [address] | + + + | Home Phone [...] | [place] | | | | | [address] | | + + + + + Care Team Providers + +------+ + | Care Manager Water Wastewater Name | Role | Phone | + [...] | | | involving | [address] [place] | | | | | beaver | MARK[place] | [place] | | | | | coronary | [address] | [address] | | | | | artery of | Phone: | Phone: | | | | | [place] heart | [phone] | [phone] | | | | | without | Fax: | Fax: | | | | | angina | [phone] | [phone] | | | | | pectoris | | | + + + + + + + Encounter Details +--------+---------+ + + + | Date | Type | Department | Care Team | Description | +--------+---------+ + + + | 09/21/ | Office | [facility] | Rahulyazshiraz Lindarahul, | Coronary artery | | 2019 | Visit | MED CTR CARDIAC | MD [address] [place] | disease, angina | | | | REHABILITATION [address], | presence | | | | [address] [place] | [place] [address] | unspecified, | | | | [place] [address] | [phone] | unspecified vessel | | | | [phone] | | or lesion type, | | | | | | unspecified whether | | | | | | beaver or | | | | | | [...] note may be different from the original. [facility] CARDIAC REHABILITATION [address] [place] [address] Cardiac Rehab Date: 09/21/2018 Patient Information Patient Name: Bob Will Date of : 1955 Age: 62 y.o. Encounter Diagnoses Code Name Primary? I25.10 Coronary artery disease, angina presence unspecified, unspecified vessel or lesi on type, unspecified whether beaver or transplanted heart Yes Number of Visits [...] 12/14/ | Office | Cardiac | Randy Figuerao, | | | 2019 | Visit | Rehabilitation | MD [address] [place] | | | | | | [place], | | | | | | [place] [address] | | | | | | [phone] | | | | | | | | +--------+ + + + + | 12/16/ | Office | Cardiac | Randy Figueroa, | | | 2018 | Visit | Rehabilitation | MD [address] [place] | | | | | | [place], | | | | | | [place] [address] | | | | | | [phone] | | | | | | | | +--------+ + + + + | 12/21/ | Office | Cardiac | Randy Figueroa, | | | 2018 | Visit | Rehabilitation | MD [address] [place] | | | | | | [place], | | | | | | [place] [address] | | | | | | [phone] | | | | | | | | +--------+ + + + + | 12/23/ | Office | Cardiac | Randy Figueroa, | | | 2018 | Visit | Rehabilitation | MD [address] | | | | | | [place], | | | | | | [place] [address] | | | | | | [phone] | | | | | | | | +--------+ + + + + | 12/28/ | Office | Cardiac | Randy Figueroa, | | | 2018 | Visit | Rehabilitation | MD [address] [place] | | | | | | [place], | | | | | | [place] [address] | | | | | | [phone] | | | | | | | | +--------+ + + + + | 12/30/ | Office | Cardiac | Randy Figueroa, | | | 2018 | Visit | Rehabilitation | MD [address] [place] | | | | | | [place], | | | | | | [place] [address] | | | | | | [phone] | | | | | | | | +--------+ + + + + | 01/04/ | Office | Cardiac | Randy Figueroa, | | 2018 | Visit | Rehabilitation | MD [address] | | | | | | [place], | | | | | | [place] [address] | | | | | | [phone] | | | | | | | | +--------+ + + + + | 01/06/ | Office | Cardiac | Randy Figueroa, | | | 2018 | Visit | Rehabilitation | MD [address] | | | | | | [place], | | | | | | [place] [address] | | | | | | [phone] | | | | | | | | +--------+ + + + + | 01/11/ | Office | Cardiac | Randy Figueroa, | | | 2018 | Visit | Rehabilitation | MD [address] | | | | | | [place], | | | | | | [place] [address] | | | | | | [phone] | | | | | | | | +--------+ + + + + | 03/24/ | Procedure | Cardiology | | | | 2018 | visit | | | | +--------+ + + + + | 03/24/ | Office | Cardiology | Jenny, | | | 2018 | Visit | | ADARSH Santo [address] | | | | | | [place], | | | | | | [place] [address] | | | | | | [phone] | | | | | | | | +--------+ + + + + as of this encounter Visit Diagnoses + + | Diagnosis | + + | Coronary artery disease, angina presence unspecified, unspecified vessel or lesion | | type, unspecified whether beaver or transplanted heart - Primary | + +"
--- OUTSIDE RECORDS SUMMARY | ~2018-12-11 | XMS | Encounter Summary ---
Demographics + + + | Address | [address] | | | [place] [address] | + + + | Home Phone [...] | [place] | | | | | [address] | | + + + + + Care Team Providers + +------+ + | Care Locomotive Operator Name | Role | Phone | [...] | Required | n | artery | DAARSH Jacobs | Rehabilitatio | | | | | disease | [address] | [address] | | | | | involving | [address] | [address] | | | | | [place] | [place] | [place] | | | | | coronary | [address] | [address] | | | | | artery of | Phone: | Phone: | | | | | [place] heart | [phone] | [phone] | | | | | without | Fax: | Fax: | | | | | angina | [phone] | [phone] | | | | | pectoris | | | + + + + + + + Encounter Details +--------+---------+ + + + | Date | Type | Department | Care Team | Description | +--------+---------+ + + + | 10/28/ | Office | [facility] | Randy Figueroa, | Coronary artery | | 2019 | Visit | MED CTR CARDIAC | MD [address] | disease, angina | | | | REHABILITATION [address], | presence | | | | [address] [place] | [place] [address] | unspecified, | | | | [place] [address] | [phone] | unspecified vessel | | | | [phone] | | or lesion type, | | [...] may be different from the or iginal. [facility] CARDIAC REHABILITATION [address] [place] [address] Cardiac Rehab Date: 10/28/2018 Patient Information Patient [...] | | | | | | [place] [address] | | | | | | [phone] | | | | | | | | +--------+ + + + + | 12/16/ | Office | Cardiac | Randy Figueroa, | | | 2018 | Visit | Rehabilitation | MD [address] | | | | | | [place], | | | | | | [place] [address] | | | | | | [phone] | | | | | | | | +--------+ + + + + | 12/21/ | Office | Cardiac | Randy Figueroa, | | | 2018 | Visit | Rehabilitation | MD [address] | | | | | | [place], | | | | | | [place] [address] | | | | | | [phone] | | | | | | | | +--------+ + + + + | 12/23/ | Office | Cardiac | Randy Figueroa, | | | 2018 | Visit | Rehabilitation | MD [address] | | | | | | [place], | | | | | | [place] [address] | | | | | | [phone] | | | | | | | | +--------+ + + + + | 12/28/ | Office | Cardiac | Randy Figueroa, | | | 2018 | Visit | Rehabilitation | MD [address] | | | | | | [place], | | | | | | [place] [address] | | | | | | [phone] | | | | | | | | +--------+ + + + + | 12/30/ | Office | Cardiac | Randy Figueroa, | | | 2018 | Visit | Rehabilitation | MD [address] | | | | | | [place], | | | | | | [place] [address] | | | | | | [phone] | | | | | | | | +--------+ + + + + | 01/04/ | Office | Cardiac | Randy Figueroa, | | | 2018 | Visit | Rehabilitation | MD [address] | | | | | | [place], | | | | | | [place] [address] | | | | | | [phone] | | | | | | | | +--------+ + + + + | 01/06/ | Office | Cardiac | Randy Figueroa, | | | 2018 | Visit | Rehabilitation | MD [address] | | | | | | [place], | | | | | | [place] [address] | | | | | | [phone] | | | | | | | | +--------+ + + + + | 01/11/ | Office | Cardiac | Randy Figueroa, | | | 2018 | Visit | Rehabilitation | MD [address] | | | | | | [place], | | | | | | [place] [address] | | | | | | [phone] | | | | | | | | +--------+ + + + + | 03/24/ | Procedure | Cardiology | | | | 2018 | visit | | | | +--------+ + + + + | 03/24/ | Office | Cardiology | Jenny, | | | 2018 | Visit | | ADARSH Santo [address] | | | | | | [place], | | | | | | [place] [address] | | | | | | [phone] | | | | | | | [...]
--- OUTSIDE RECORDS SUMMARY | ~2018-12-11 | XMS | Clinical Summary ---
Demographics + + + | Address | [address] | | | [place] [address] | + + + | Home Phone [...] [place] | | | | | [address] | | + + + + + Care Team Providers + +------+ + | Care Inside Sales Engineer Name | Role | Phone | [...] | | Activ | | (VITAMIN D-3) [phone] | a week. | | | | [...] | | nasal spray | nasal spray Austin 2 | | | | | | [...] e | | spray | aerosol spray Austin | | | | | | | [...] + | COPD (chronic obstructive pulmonary disease) ([facility]) | 05/14/2018 | + + + + [...] | 11/12/2017 | + + + | GAME DESIGNER/CREATIVE DIRECTOR-D (AICKatie) Medtronic 10/16/17 EULOGIO Darby | 10/19/2017 | + + + + + | Overview: Formatting of this note may be different from the | | original. MODEL NAME MODEL# SERIAL# DATE IMPLANTED GENERATOR | | Medtronic [id number] 10/16/17 RV LEAD Medtronic [id number] | | [id number] 10/16/17 A LEAD Medtronic [id number] 10/16/17 | | Coronary Sinus LEAD Medtronic [id number] 10/16/17 | | Indication: ischemic cardiomyopathy with reduced EF 30-35% Last | | Assessment & Plan: Medtronic AICD Placed in 10/2017 at [facility]. | | A:-Patient ventricular paced 100% this morning. No arrhythmias on | | telemetry.P:-No acute therapy. Continue current therapy. | | | | Last Assessment & Plan: Medtronic AICD Placed in 10/2017 at [facility]. | | | |A: | |-Patient ventricular [...] + + + | Overview: S/P Medtronic GAME DESIGNER/CREATIVE DIRECTOR-D 10-16-17 Dr Darby, [facility] Scan | | 10/13/17 shows No Significant [...] + + | Coronary artery disease involving andreafski coronary artery of | 04/06/2017 | | andreafski heart without angina pectoris | | + [...] + + + | Acute anterior wall [place] (HCC) | 04/03/2017 | + + + [...] involving | | | | | | andreafski coronary | | | | | | artery of andreafski | | | | | | heart without angina | | | | | | pectoris (Primary | | | | | | Dx); Post PTCA | +--------+ + + + + | 12/07/ | Office | | Randy Figueroa, | Coronary artery | | 2018 | Visit | | MD | disease involving | | | | | | andreafski coronary | | | | | | artery of andreafski | | | | | | heart [...] | | | | | (Primary Dx); GAME DESIGNER/CREATIVE DIRECTOR-D | | | | | | (AICD) Medtronic | | | | | | 10/16/17 SCMENDY Darby; | | | | | | Ischemic | | | | | | cardiomyopathy | +--------+ + + + + | 12/02/ | Office | | Randy Figueroa, | Coronary artery | | 2018 | Visit | | MD | disease involving | | | | | | andreafski coronary | | | | | | artery of andreafski | | | | | | heart [...] involving | | | | | | andreafski coronary | | | | | | artery of andreafski | | | | | | heart [...] involving | | | | | | andreafski coronary | | | | | | artery of andreafski | | | | | | heart [...] involving | | | | | | andreafski coronary | | | | | | artery of andreafski | | | | | | heart [...] involving | | | | | | andreafski coronary | | | | | | artery of andreafski | | | | | | heart [...] whether | | | | | | andreafski or | | | | | | [...] whether | | | | | | andreafski or | | | | | | [...] whether | | | | | | andreafski or | | | | | | [...] whether | | | | | | andreafski or | | | | | | [...] whether | | | | | | andreafski or | | | | | | [...] whether | | | | | | andreafski or | | | | | | [...] whether | | | | | | andreafski or | | | | | | [...] | | | | | anterior wall [place] | | | | | | (HCC); Coronary | | | | | | artery disease | | | | | | involving andreafski | | | | | | coronary artery of | | | | | | andreafski heart without | | | | | [...] whether | | | | | | andreafski or | | | | | | [...] | Visit | | MD [address] | | | | | | [place], | | | | | | [place] [address] | | | | | | [phone] | | | | | | | | +--------+ + + + + | 12/16/ | Office | | Randy Figueroa, | | | 2018 | Visit | | MD [address] | | | | | | [place], | | | | | | [place] [address] | | | | | | [phone] | | | | | | | | +--------+ + + + + | 12/21/ | Office | | Randy Figueroa, | | | 2018 | Visit | | MD [address] | | | | | | [place], | | | | | | [place] [address] | | | | | | [phone] | | | | | | | | +--------+ + + + + | 12/23/ | Office | | Randy Figueroa, | | | 2018 | Visit | | MD [address] | | | | | | [place], | | | | | | [place] [address] | | | | | | [phone] | | | | | | | | +--------+ + + + + | 12/28/ | Office | | Randy Figueroa, | | | 2018 | Visit | | MD [address] | | | | | | [place], | | | | | | [place] [address] | | | | | | [phone] | | | | | | | | +--------+ + + + + | 12/30/ | Office | | Randy Figueroa, | | | 2018 | Visit | | MD [address] | | | | | | [place], | | | | | | [place] [address] | | | | | | [phone] | | | | | | | | +--------+ + + + + | 01/04/ | Office | | Randy Figueroa, | | | 2018 | Visit | | MD [address] | | | | | | [place], | | | | | | [place] [address] | | | | | | [phone] | | | | | | | | +--------+ + + + + | 01/06/ | Office | | Randy Figueroa, | | | 2018 | Visit | | MD [address] | | | | | | [place], | | | | | | [place] [address] | | | | | | [phone] | | | | | | | | +--------+ + + + + | 01/11/ | Office | | Randy Figueroa, | | | 2018 | Visit | | MD [address] | | | | | | [place], | | | | | | [place] [address] | | | | | | [phone] | | | | | | | [...] [place], | | | | | | [place] [address] | | | | | | [phone] | | | | | | | [...] Generi | Left: | TERUMO LORIN | [id number] | 12/05/ | [id number] | | [id number]: Qty: 1 | c | Groin | - TERU | [id number] | 2018 | / | | on 05/19/2018 by Thew, | | | | 20 | | /[id number] | | Khurram Isabel MD | | | | | | 371 | + +--------+--------+ +--------+--------+--------+ | Census Taker-D MedtronicImplanted: | Implan | | MEDTRONIC - [...] N/A: | ISAACS | | 12/29/ | [id number] | | Eluting Coronary Stent System | | [place] | DIAGNOSTICS | | 2019 | 0-18 / | | Implanted: Qty: 1 on | | ry | - DAINA | | | | | 03/15/2017 by Monse Ross, | | | | | | /[id number] | | MD | | | | | | 61 | + +--------+--------+ +--------+--------+--------+ | Xience Alpine Everolimus | Stent | N/A: | ISAACS | | 11/03/ | [id number] | | Eluting Coronary Stent System | | [place] | DIAGNOSTICS | | 2019 | 0-23 / | | Implanted: Qty: 1 on | | ry | - DAINA | | | | | 03/15/2017 by Monse Ross, | | | | | | /[id number] | | MD | | | | | | 41 | + +--------+--------+ +--------+--------+--------+ | Kit Perclose Proglide 6fr - | | Right: | ISAACS | [id number] | | 81993- | | [id number]: Qty: 1 | | Alessiain | VASCULAR - | [id number] | | 03 / / | | on 05/19/2018 by Missael, | | | ABVA | 89 | | | | Khurram Isabel MD | | | | | | | + +--------+--------+ +--------+--------+--------+ | Kit Perclose Proglide 6fr - | | Right: | ISAACS | [id number] | | 70517- | | [id number]: Qty: 1 | | Groin | VASCULAR - | [id number] | | 03 / / | | [...] this | | INTERROGATION- | e | 8999 PDT | Interrogation GAME DESIGNER/CREATIVE DIRECTOR-D | procedure are in the | | [...] remote PDF scanned into | | | [facility] for remote interrogation results. Data [...] | [employer] | MODA | [id number] | Medica | [phone] | | MEDICAID HMO | HEALTH | | id | [id number] | | | | MDCD | | | | | | | HMO [place] | | | | | + +--------+ +--------+ +---------+ | [employer]ETERANS ADMIN | VETERA | [id number] | Indemn | | | | | NS | | ity | | | | | ADMIN | | | | | | | [place] | | | | | | [place] | | | | | + +--------+ +--------+ +---------+ | [employer] ADMIN | VETERA | [id number] | Indemn | | | | | [...] Self | [birth year] | Home: | [address] | | | al/Fam | | [phone] | [phone] | [place] | | | taiwo | | | [phone] | [phone] | + +--------+ +--------+ + +
--- OUTSIDE RECORDS SUMMARY | ~2018-12-11 | XMS | Encounter Summary ---
Demographics + + + | Address | [address] | | | [place] [address] | + + + | Home Phone [...] | [place] | | | | | [address] | | + + + + + Care Team Providers + +------+ + | Care Pace Analyst Name | Role | Phone | [...] | | Atherosclero | MD Lauro | [address] [place] [address] | | | | | tic heart | [address] 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 [address] | artery disease) | | | | [address] [place], | [place], | ([facility]) (Primary Dx); | | | | [place] [address] | [place] [address] | Benign essential | | | | [phone] | [phone] | hypertension; | | | | | | Fatigue, unspecified | | | | | | type; Acute | | | | | | anterior wall [place] | | | | | | (HCC); Coronary | | | | | | artery disease | | | | | | involving ho-chunk | | | | | | coronary artery of | | | | | | ho-chunk heart without | | | | | [...] artery disease post recen t anterior wall [place], post PTCA and stents of the left main, LAD and LCx on 03/15/17, cardiac sh ock, left atrial appendage thrombus, recent status post stents to, CARD MOUNTER-D placement in [facility] o n 10/17/2017.Heis being seen today [...] retention since the heart failure team in [place] told him to continue taking his furosemide on a daily basis. He will do a blood pressure log and bring it to [facility]. Since that time, he was seen [...] least 30 minutes every day at the [facility] in [place] with h is walker. He feels better [...] Active Problem List Diagnosis Acute anterior wall [place] Coronary artery disease involving ho-chunk coronary artery of ho-chunk heart without angina pectoris Ischemic cardiomyopathy CARD MOUNTER-D (AICD) Medtronic 10/16/17 [facility] Stecker Implantable defibrillator reprogramming/check H/O atrial [...] spray QNASL 80 mcg/actuation nasal aerosol spray Jesse 2 sprays every day by intranasal route at bedtime. Cholecalciferol (VITAMIN D-3) 95798 units CAPS Take by mouth Once a [...] 42 mcg (0.06 %) nasal spra y Jesse 2 sprays 3 times a day by [...] 6 BPM Confirmed by FLORY العلي MD ([id number]) on 08/27/2018 6:38:04 AM LAB RESULTS reviewed during visit today primarily from [facility]: LIPID Lab Results Component Value Date CHOL [...] 366 (H) 06/10/2018 I reviewed records from [facility] for emergency department visit o n 08/26/2018 which is summarized in the HPI. RESULTS- I reviewed reports from [facility]: Ct Head Wo Contrast Result Date: 08/26/2018 [...] shock requiring IABP, pressor (dop amine, norepinephrine). [facility] and [facility] were on divert. Patient wasn' t transferred to [facility]. B. Echocardiogram 03/17/2017 shows LV ejection fraction is severely de creased, visually estimated left ventricular ejection fraction is 20 - 25%, left ventricular systolic thickening is segment allyabnormal,mildly reduced RV systolic function. Normal RV size, no significant valvular abnormalities seen, compared to the most recent exam dated , 03/15/2017, there is no significant changes C. At [facility], patient had another STEMI code 03/29, [...] to follow up closely with a local tenter frame operator in [place] . He wias dischargeed with a LifeVest [...] y we will transfer the patient to [facility] for consideration of urgent coronary revascularizatio [...] He is in class II of the [place] [employer] functional class. 2. Ischemic Cardiomyopathy: [...] in the se regions. C. S/P Medtronic CARD MOUNTER-D 10-16-17 Dr Darby, [facility]. Ice interrogation today shows one episode [...] will be needing to go back to [place] in the summer. F.Today, 09/21/2018, he has had no increase in fluid retention. There is no leg swelling. He is in class II of the [place] [employer] functional class. Heart failur e stage C. 3. Ventricular tachycardia: A. Electrophysiology Study 10/16/17 shows positive EP study for induc ible ventricular tachycardia. B.In remote interrogation he had 65 episodes of treated VT. He is n ot on any antiarrhythmic. He is going to be seen in [place] so we will let EP know about [...] week ago. Viry mustafa was after his [place] and at the same time patient was having ventricular tachycardia. He was initiated on amiodarone and then discontinued before discharge. The plan is to monitor thro ugh his device and see if this is a problem that needs to be addressed. Patient is not on anticoagulation he was left that way from [facility]. Patient has had several GI bleeds [...] start titrating metoprolol increases as recommended by [facility] ed heart failure team and continue close monitoring of blood pressure. 4. He will follow up in 3 months for office visit and device interrogation, or sooner with concerns. He will have fasting labs prior to visit for lipid profile, CMP and CBC, if not done prior by another provider. Portions of this chart may have been created with [email or web address] voice recognition software. Occasi onal wrong-word or [...] | | | | | | [place] [address] | | | | | | [phone] | | | | | | | | +--------+ + + + + | 12/16/ | Office | Cardiac | Randy Figueroa, | | | 2018 | Visit | Rehabilitation | MD [address] | | | | | | [place], | | | | | | [place] [address] | | | | | | [phone] | | | | | | | | +--------+ + + + + | 12/21/ | Office | Cardiac | Randy Figueroa, | | | 2018 | Visit | Rehabilitation | MD [address] | | | | | | [place], | | | | | | [place] [address] | | | | | | [phone] | | | | | | | | +--------+ + + + + | 12/23/ | Office | Cardiac | Randy Figueroa, | | | 2018 | Visit | Rehabilitation | MD [address] | | | | | | [place], | | | | | | [place] [address] | | | | | | [phone] | | | | | | | | +--------+ + + + + | 12/28/ | Office | Cardiac | Randy Figueroa, | | | 2018 | Visit | Rehabilitation | MD [address] | | | | | | [place], | | | | | | [place] [address] | | | | | | [phone] | | | | | | | | +--------+ + + + + | 12/30/ | Office | Cardiac | Randy Figueroa, | | | 2018 | Visit | Rehabilitation | MD [address] | | | | | | [place], | | | | | | [place] [address] | | | | | | [phone] | | | | | | | | +--------+ + + + + | 01/04/ | Office | Cardiac | Randy Figueroa, | | | 2018 | Visit | Rehabilitation | MD [address] | | | | | | [place], | | | | | | [place] [address] | | | | | | [phone] | | | | | | | | +--------+ + + + + | 01/06/ | Office | Cardiac | Randy Figueroa, | | | 2018 | Visit | Rehabilitation | MD [address] | | | | | | [place], | | | | | | [place] [address] | | | | | | [phone] | | | | | | | | +--------+ + + + + | 01/11/ | Office | Cardiac | Randy Figueroa, | | | 2018 | Visit | Rehabilitation | MD [address] | | | | | | [place], | | | | | | [place] [address] | | | | | | [phone] | | | | | | | | +--------+ + + + + | 03/24/ | Procedure | Cardiology | | | | 2018 | visit | | | | +--------+ + + + + | 03/24/ | Office | Cardiology | Jenny, | | | 2018 | Visit | | ADARSH Santo [address] | | | | | | [place], | | | | | | [place] [address] | | | | | | [phone] | | | | | | | [...] | + + | Acute anterior wall [place] (HCC) | + + | Acute myocardial infarction of other anterior wall, episode of care unspecified | + + | Coronary artery disease involving ho-chunk coronary artery of ho-chunk heart without | | angina pectoris | + + | Ischemic cardiomyopathy | + + | Other specified forms of chronic ischemic heart disease | + + | Abdominal aortic aneurysm (AAA) without rupture (HCC) | + + | Mixed hyperlipidemia | + +
--- OUTSIDE RECORDS SUMMARY | ~2018-12-11 | XMS | Encounter Summary ---
Demographics + + + | Address | [address] | | | [place] [address] | + + + | Home Phone [...] + + | Author | [facility] | | | and [place] | + + + | Organization | [facility] | | | and [place] | + + + | Address | Unknown | + + + | Phone | Unavailable | + + + Support + + + + + | Name | Relationship | Address | Phone | + + + + + | [place] | [address] | [place] | | | | | [address] | | + + + + + Care Team Providers + +------+ + | Care Filler Wiper Name | Role | Phone | + [...] | Telephone | [facility] [place] | [place], | Medication Related | | 2018 | | CARDIOLOGY [address] | ADARSH Santo [address] | | | | | [place], | [place], | | | | | [place] [address] | [place] [address] | | | | | [phone] | [phone] | | | | | | | [...] | | | | | | [place] [address] | | | | | | [phone] | | | | | | | | +--------+ + + + + | 12/16/ | Office | Cardiac | Randy Figueroa, | | | 2018 | Visit | Rehabilitation | MD [address]av[address] | | | | | | [place], | | | | | | [place] [address] | | | | | | [phone] | | | | | | | | +--------+ + + + + | 12/21/ | Office | Cardiac | Randy Figueroa, | | | 2018 | Visit | Rehabilitation | MD [address]av[address] | | | | | | [place], | | | | | | [place] [address] | | | | | | [phone] | | | | | | | | +--------+ + + + + | 12/23/ | Office | Cardiac | Randy Figueroa, | | | 2018 | Visit | Rehabilitation | MD [address] [place] | | | | | | [place], | | | | | | [place] [address] | | | | | | [phone] | | | | | | | | +--------+ + + + + | 12/28/ | Office | Cardiac | Randy Figueroa, | | | 2018 | Visit | Rehabilitation | MD [address] [place] | | | | | | [place], | | | | | | [place] [address] | | | | | | [phone] | | | | | | | | +--------+ + + + + | 12/30/ | Office | Cardiac | Randy Figueroa, | | 2018 | Visit | Rehabilitation | MD [address] [place] | | | | | | [place], | | | | | | [place] [address] | | | | | | [phone] | | | | | | | | +--------+ + + + + | 01/04/ | Office | Cardiac | Randy Figueroa, | | | 2018 | Visit | Rehabilitation | MD [address] | | | | | | [place], | | | | | | [place] [address] | | | | | | [phone] | | | | | | | | +--------+ + + + + | 01/06/ | Office | Cardiac | Randy Figueroa, | | | 2018 | Visit | Rehabilitation | MD [address] | | | | | | [place], | | | | | | [place] [address] | | | | | | [phone] | | | | | | | | +--------+ + + + + | 01/11/ | Office | Cardiac | Randy Figueroa, | | | 2018 | Visit | Rehabilitation | MD [address] | | | | | | [place], | | | | | | [place] [address] | | | | | | [phone] | | | | | | | | +--------+ + + + + | 03/24/ | Procedure | Cardiology | | | | 2018 | visit | | | | +--------+ + + + + | 03/24/ | Office | Cardiology | Jenny, | | | 2018 | Visit | | ADARSH Santo [address] | | | | | | [place], | | | | | | [place] [address] | | | | | | [phone] | | | | | | | [...] | starting 11/30/2018 | | | | lovelock coronary | until 12/01/2019 | | | | artery of lovelock | | | | | heart without angina | | | | | pectoris | | + +--------+ + + as of this encounter Visit Diagnoses + + | Diagnosis | + + | Coronary artery disease involving lovelock coronary artery of lovelock heart without | | angina pectoris - Primary | + +"
--- OUTSIDE RECORDS SUMMARY | ~2018-12-11 | XMS | Encounter Summary ---
Demographics + + + | Address | [address] | | | [place] [address] | + + + | Home Phone [...] | [place] | | | | | [address] | | + + + + + Care Team Providers + +------+ + | Care Travel Registered Nurse Pacu Name | Role | Phone | + [...] | | Atherosclero | MD Lauro | [address] [place] [address] | | | | | tic heart | [address] 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 [address] | artery disease) | | | | [place], | [place], | ([facility]) (Primary Dx); | | | | [place] [phone] | [place] [phone] | Benign essential | | | | [phone] | [phone] | hypertension; | | | | | | Fatigue, unspecified | | | | | | type; Acute | | | | | | anterior wall [place] | | | | | | (HCC); Coronary | | | | | | artery disease | | | | | | involving [place] | | | | | | coronary artery of | | | | | | [place] heart without | | | | | [...] artery disease post recen t anterior wall [place], post PTCA and stents of the left main, LAD and LCx on 03/15/17, cardiac sh ock, left atrial appendage thrombus, recent status post stents to, FREIGHT TRUCKER-D placement in [facility] o n 10/17/2017.Heis being seen today [...] retention since the heart failure team in [place] told him to continue taking his furosemide on a daily basis. He will do a blood pressure log and bring it to his next appoin [facility]. Since that time, he was seen in [...] least 30 minutes every day at the [facility] in [place] with h is walker. He feels better [...] Active Problem List Diagnosis Acute anterior wall [place] Coronary artery disease involving [place] coronary artery of [place] heart without angina pectoris Ischemic cardiomyopathy FREIGHT TRUCKER-D (AICD) Medtronic 10/16/17 [facility] Stecker Implantable defibrillator reprogramming/check H/O atrial [...] spray QNASL 80 mcg/actuation nasal aerosol spray Sawyer 2 sprays every day by intranasal route at bedtime. Cholecalciferol (VITAMIN D-3) 46242 units CAPS Take by mouth Once a [...] 42 mcg (0.06 %) nasal spra y Sawyer 2 sprays 3 times a day by [...] 6 BPM Confirmed by FLORY العلي MD ([id number]) on 08/27/2018 6:38:04 AM LAB RESULTS reviewed during visit today primarily from [facility]: LIPID Lab Results Component Value Date [...] 366 (H) 06/10/2018 I reviewed records from [facility] for emergency department visit o n 08/26/2018 which is summarized in the HPI. RESULTS- I reviewed reports from [facility]: Ct Head Wo Contrast Result Date: [...] shock requiring IABP, pressor (dop amine, norepinephrine). [facility] and [facility] were on divert. Patient wasn' t transferred to [facility]. B. Echocardiogram 03/17/2017 shows LV ejection fraction is severely de creased, visually estimated left ventricular ejection fraction is 20 - 25%, left ventricular systolic thickening is segment allyabnormal,mildly reduced RV systolic function. Normal RV size, no significant valvular abnormalities seen, compared to the most recent exam dated , 03/15/2017, there is no significant changes C. At [facility], patient had another STEMI [...] to follow up closely with a local skid machine operator in [place] . He wias dischargeed with a LifeVest [...] y we will transfer the patient to [facility] for consideration of urgent coronary revascularizatio [...] He is in class II of the [place] [employer] functional class. 2. Ischemic Cardiomyopathy: [...] in the se regions. C. S/P Medtronic FREIGHT TRUCKER-D 10-16-17 Dr Darby, [facility]. Ice interrogation today shows one episode [...] will be needing to go back to [place] in the summer. F.Today, 09/21/2018, he has had no increase in fluid retention. There is no leg swelling. He is in class II of the [place] [employer] functional class. Heart failur e stage C. 3. Ventricular tachycardia: A. Electrophysiology Study 10/16/17 shows positive EP study for induc ible ventricular tachycardia. B.In remote interrogation he had 65 episodes of treated VT. He is n ot on any antiarrhythmic. He is going to be seen in [place] so we will let EP know about [...] week ago. Viry mustafa was after his [place] and at the same time patient was having ventricular tachycardia. He was initiated on amiodarone and then discontinued before discharge. The plan is to monitor thro ugh his device and see if this is a problem that needs to be addressed. Patient is not on anticoagulation he was left that way from [facility]. Patient has had several [...] start titrating metoprolol increases as recommended by [facility] ed heart failure team and continue close monitoring of blood pressure. 4. He will follow up in 3 months for office visit and device interrogation, or sooner with concerns. He will have fasting labs prior to visit for lipid profile, CMP and CBC, if not done prior by another provider. Portions of this chart may have been created with SCM-GL voice recognition software. Occasi onal wrong-word or [...] [place], | | | | | | [place] [id number] | | | | | | [phone] | | | | | | | | +--------+ + + + + | 12/16/ | Office | Cardiac | Randy Figueroa, | | | 2018 | Visit | Rehabilitation | MD [address] | | | | | | [place], | | | | | | [place] [address] | | | | | | [phone] | | | | | | | | +--------+ + + + + | 12/21/ | Office | Cardiac | Randy Figueroa, | | | 2018 | Visit | Rehabilitation | MD [address] | | | | | | [place], | | | | | | [place] [address] | | | | | | [phone] | | | | | | | | +--------+ + + + + | 12/23/ | Office | Cardiac | Randy Figueroa, | | | 2018 | Visit | Rehabilitation | MD [address] | | | | | | [place], | | | | | | [place] [address] | | | | | | [phone] | | | | | | | | +--------+ + + + + | 12/28/ | Office | Cardiac | Rnady Figueroa, | | | 2018 | Visit | Rehabilitation | MD [address] | | | | | | [place], | | | | | | [place] [address] | | | | | | [phone] | | | | | | | | +--------+ + + + + | 12/30/ | Office | Cardiac | Randy Figueroa, | | | 2018 | Visit | Rehabilitation | MD [address] | | | | | | [place], | | | | | | [place] [address] | | | | | | [phone] | | | | | | | | +--------+ + + + + | 01/04/ | Office | Cardiac | Randy Figueroa, | | | 2018 | Visit | Rehabilitation | MD [address] | | | | | | [place], | | | | | | [place] [address] | | | | | | [phone] | | | | | | | | +--------+ + + + + | 01/06/ | Office | Cardiac | Randy Figueroa, | | | 2018 | Visit | Rehabilitation | MD [address] | | | | | | [place], | | | | | | [place] [address] | | | | | | [phone] | | | | | | | | +--------+ + + + + | 01/11/ | Office | Cardiac | Randy Figueroa, | | | 2018 | Visit | Rehabilitation | MD [address] | | | | | | [place], | | | | | | [place] [address] | | | | | | [phone] | | | | | | | | +--------+ + + + + | 03/24/ | Procedure | Cardiology | | | | 2018 | visit | | | | +--------+ + + + + | 03/24/ | Office | Cardiology | Jenny, | | | 2018 | Visit | | ADARSH Santo [address] | | | | | | [place], | | | | | | [place] [address] | | | | | | [phone] | | | | | | | [...] | + + | Acute anterior wall [place] (HCC) | + + | Acute myocardial infarction of other anterior wall, episode of care unspecified | + + | Coronary artery disease involving [place] coronary artery of [place] heart without | | angina pectoris | + + | Ischemic cardiomyopathy | + + | Other specified forms of chronic ischemic heart disease | + + | Abdominal aortic aneurysm (AAA) without rupture (HCC) | + + | Mixed hyperlipidemia | + +
--- OUTSIDE RECORDS SUMMARY | ~2018-12-11 | XMS | Encounter Summary ---
Demographics + + + | Address | [address] | | | [place] [address] | + + + | Home Phone [...] | [place] | | | | | [address] | | + + + + + Care Team Providers + +------+ + | Care Hot Worker Name | Role | Phone | [...] | | | involving | [address] [place] | | | | | [place] | [place] | [place] | | | | | coronary | [address] | [address] | | | | | artery of | Phone: | Phone: | | | | | [place] heart | [phone] | [phone] | | | | | without | Fax: | Fax: | | | | | angina | [phone] | [phone] | | | | | pectoris | | | + + + + + + + Encounter Details +--------+---------+ + + + | Date | Type | Department | Care Team | Description | +--------+---------+ + + + | 10/07/ | Office | [place] | Carolina Lindarisa, | Coronary artery | | 2019 | Visit | [facility] CARDIAC | MD [address] | disease, angina | | | | REHABILITATION [address] [place], | presence | | | | [address] [place] | [place] [address] | unspecified, | | | | [place] [address] | [phone] | unspecified vessel | | | | [phone] | | or lesion type, | | | | | | unspecified whether | | | | | | [place] or | | | | | | [...] + as of this encounter Progress Notes Chilo Gael - 10/07/2018 1000 PSTFormatting of this note may be different from the origin maFletcher [facility] [address] [place] [address] Cardiac Rehab 60 Day Review Date: 10/07/2018 Patient Information Patient Name: Bob Will Date of : 1955 Age: 62 y.o. Referring Provider: Randy Figueroa MD Encounter Diagnoses Code Name Primary? I25.10 Coronary artery disease, angina presence unspecified, unspecified vessel or lesi on type, unspecified whether [place] or transplanted heart Yes Z98.61 Post PTCA Cardiac Rehab Phase II Leon atment Plan Bob Will (Bob) is a 62 y.o. male with a history of coronary artery disease post rec ent anterior wall [place], post PTCA and stents of the left main, LAD and LCx on 03/15/17, cardiac shock, left atrial appendage thrombus, pneumonitis and septic shock, and severe in-stent chery nosis, [place] in Sep 2017, episodes of VT and subsequent PTCA in Oct 2017, CHF, LVEF 35-40%, CARETAKER RESORT -D placement in [facility] on 10/17/2017. He has recently increased his metoprolol dose and is on Entresto. He arrives in electric w heelchair and has been inactive. Fall Ri [...] METs RPE: 3-4/1 0 Discharge exercise assessment: Date: Mode: Duration: RPE: [...] Heart Failure book Date received: 04/22/18 Ta mariet Goal(s) Aerobic- moderate intensity activity 30 to [...] control. 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 Nutr ition and Weight Assessment: Height: 5'10 " Admission Weight: 220# 30 Day W eight: 224 BMI: 31.6 60 Day Weight: 219# Discharge Weight: Weight Goal: Lose 1-2 # per week Waist Circumference: D/C Circum ference: Diet Assessment Initial Rate Your Plate Score: 63 Discharge Rate Your Plate Sco re: Special diet? dm Alcohol? Inte rvention and Education Points listed below- Date Completed: 08/03/18 -Goals of BMI, Waist circumference - Encourage weight reduction and/or maintenance through physical activity/ structured exe rcise, caloric intake, and/ or behavioral management, goal setting -Heart Healthy Dietary Education Date: 08/03/18 -Referral to Pediatric Anesthesiologist: Date: -DVD: Healthy Eating For Life Date: [...] BP: 92/58 60 Day Exercise BP: 96/62 Pos t Exercise BP: 92/60 Discharge BP: Discharge Exercise BP: Inte rventions [...] can see but was within our standards. Dyslipidemia History of Dyslipidemia: Yes Treatment: On [...] exercise until stable. Date: Range: -Referral to Principal Network Architect Date: Education Points listed below- Date Completed: [...] 4 60 Day PHQ-9: 12 Discharge PHQ-9: Support systems: and family Notes: 10/07/18 Patient [...] to deal with in every day life. Intervention and Education Points listed below- Date [...] so his drive in is much better. Patients stated Goals for Cardiac Rehab: To get into better shape and gain confidence after all that I've been through. Electronically signed by: Gael Woo, 10/07/2018 12:40 Patient Name: Bob Sims Suman/: 1955/ this enco unter Plan of Treatment +--------+ + + + + | Date | Type | Specialty | Care Team | Description | +--------+ + + + + | 12/14/ | Office | Cardiac | Randy Figueroa, | | | 2018 | Visit | Rehabilitation | MD [address] | | | | | | [place], | | | | | | [place] [address] | | | | | | [phone] | | | | | | | | +--------+ + + + + | 12/16/ | Office | Cardiac | Randy Figueroa, | | | 2018 | Visit | Rehabilitation | MD [address] | | | | | | [place], | | | | | | [place] [address] | | | | | | [phone] | | | | | | | | +--------+ + + + + | 12/21/ | Office | Cardiac | Randy Figueroa, | | | 2018 | Visit | Rehabilitation | MD [address] | | | | | | [place], | | | | | | [place] [address] | | | | | | [phone] | | | | | | | | +--------+ + + + + | 12/23/ | Office | Cardiac | Randy Figueroa, | | | 2018 | Visit | Rehabilitation | MD [address] | | | | | | [place], | | | | | | [place] [address] | | | | | | [phone] | | | | | | | | +--------+ + + + + | 12/28/ | Office | Cardiac | Randy Figueroa, | | | 2018 | Visit | Rehabilitation | MD [address] | | | | | | [place], | | | | | | [place] [address] | | | | | | [phone] | | | | | | | | +--------+ + + + + | 12/30/ | Office | Cardiac | Randy Figueroa, | | | 2018 | Visit | Rehabilitation | MD [address] | | | | | | [place], | | | | | | [place] [address] | | | | | | [phone] | | | | | | | | +--------+ + + + + | 01/04/ | Office | Cardiac | Randy Figueroa, | | | 2018 | Visit | Rehabilitation | MD [address] | | | | | | [place], | | | | | | [place] [address] | | | | | | [phone] | | | | | | | | +--------+ + + + + | 01/06/ | Office | Cardiac | Randy Figueroa, | | | 2018 | Visit | Rehabilitation | MD [address] | | | | | | [place], | | | | | | [place] [address] | | | | | | [phone] | | | | | | | | +--------+ + + + + | 01/11/ | Office | Cardiac | Randy Figueroa, | | | 2018 | Visit | Rehabilitation | MD [address] | | | | | | [place], | | | | | | [place] [address] | | | | | | [phone] | | | | | | | | +--------+ + + + + | 03/24/ | Procedure | Cardiology | | | | 2018 | visit | | | | +--------+ + + + + | 03/24/ | Office | Cardiology | Jenny, | | | 2018 | Visit | | ADARSH Santo [address] | | | | | | [address] [place], | | | | | | [place] [address] | | | | | | [phone] | | | | | | | | +--------+ + + + + as of this encounter Visit Diagnoses + + | Diagnosis | + + | Coronary artery disease, angina presence unspecified, unspecified vessel or lesion | | type, unspecified whether [place] or transplanted heart - Primary | + + | Post PTCA | + + | Postsurgical percutaneous transluminal coronary angioplasty status | + +
--- OUTSIDE RECORDS SUMMARY | ~2018-12-11 | XMS | Encounter Summary ---
Demographics + + + | Address | [address] | | | [place] [address] | + + + | Home Phone | | + + + | Preferred Language | Unknown | + + + | Marital Status | | + + + | Lutheran Affiliation | Unknown | + + + | Race | Unknown | + + + | Ethnic Group | Unknown | + + + Author + + + | Author | [facility] | | | and [place] | + + + | Organization | [facility] | | | and [place] | + + + | Address | Unknown | + + + | Phone | Unavailable | + + + Support + + + + + | Name | Relationship | Address | Phone | + + + + + | [place] Will | [place] | [place] | | | | | [address] | | + + + + + Care Team Providers + +------+ + | Care Medical Scribe Name | Role | Phone | + [...] | | | involving | [address] [place] | | | | | [place] | [place] | [place] | | | | | coronary | [address] | [address] | | | | | artery of | Phone: | Phone: | | | | | [place] heart | [phone] | [phone] | | | | | without | Fax: | Fax: | | | | | angina | [phone] | [phone] | | | | | pectoris | | | + + + + + + + Encounter Details +--------+---------+ + + + | Date | Type | Department | Care Team | Description | +--------+---------+ + + + | 11/23/ | Office | [facility] | Rahullindacathy Lindaangusleo, | Acute on chronic | | 2019 | Visit | MED CTR CARDIAC | MD [address] | systolic congestive | | | | REHABILITATION [address] | [place], | heart failure (HCC) | | | | [address] [place] | [place] [address] | (Primary Dx) | | | | [place] [address] | [phone] | | | | | [phone] | | | +--------+---------+ + + + [...] may be differ ent from the original. [facility] [address] [facility] [address] Cardiac Rehab Date: 11/23/2018 Patient Information Patient [...] | Visit | Rehabilitation | MD [address] | | | | | | [place], | | | | | | [place] [address] | | | | | | [phone] | | | | | | | | +--------+ + + + + | 12/16/ | Office | Cardiac | Randy Figueroa, | | | 2018 | Visit | Rehabilitation | MD [address] | | | | | | [place], | | | | | | [place] [address] | | | | | | [phone] | | | | | | | | +--------+ + + + + | 12/21/ | Office | Cardiac | Randy Figueroa, | | | 2018 | Visit | Rehabilitation | MD [address] | | | | | | [place], | | | | | | [place] [address] | | | | | | [phone] | | | | | | | | +--------+ + + + + | 12/23/ | Office | Cardiac | Randy Figueroa, | | | 2018 | Visit | Rehabilitation | MD [address] | | | | | | [place], | | | | | | [place] [address] | | | | | | [phone] | | | | | | | | +--------+ + + + + | 12/28/ | Office | Cardiac | Randy Figueroa, | | | 2018 | Visit | Rehabilitation | MD [address] | | | | | | [place], | | | | | | [place] [address] | | | | | | [phone] | | | | | | | | +--------+ + + + + | 12/30/ | Office | Cardiac | Randy Figueroa, | | | 2018 | Visit | Rehabilitation | MD [address] | | | | | | [place], | | | | | | [place] [address] | | | | | | [phone] | | | | | | | | +--------+ + + + + | 01/04/ | Office | Cardiac | Randy Figueroa, | | | 2018 | Visit | Rehabilitation | MD [address] | | | | | | [place], | | | | | | [place] [address] | | | | | | [phone] | | | | | | | | +--------+ + + + + | 01/06/ | Office | Cardiac | Randy Figueroa, | | | 2018 | Visit | Rehabilitation | MD J[address] | | | | | | [place], | | | | | | [place] [address] | | | | | | [phone] | | | | | | | | +--------+ + + + + | 01/11/ | Office | Cardiac | Randy Figueroa, | | | 2018 | Visit | Rehabilitation | MD [address] | | | | | | [place], | | | | | | [place] [address] | | | | | | [phone] | | | | | | | | +--------+ + + + + | 03/24/ | Procedure | Cardiology | | | | 2018 | visit | | | | +--------+ + + + + | 03/24/ | Office | Cardiology | Jenny, | | | 2019 | Visit | | ADARSH Santo [address] | | | | | | [address] [place] [place], | | | | | | [place] [address] | | | | | | [phone] | | | | | | | | +--------+ + + + + as of this encounter Visit Diagnoses + + | Diagnosis | + + | Acute on chronic systolic congestive heart failure (HCC) - Primary | + + | Acute on chronic systolic heart failure | + +"
--- OUTSIDE RECORDS SUMMARY | ~2018-12-11 | XMS | Clinical Summary ---
Demographics + + + | Address | [address] [place] [address] [address] | | | [place] [address] | + + + | Home Phone | | + + + | Preferred Language | Unknown | + + + | Marital Status | | + + + | Religion Affiliation | NRP | + + + [...] | | | | | [place] [address] | | + + + + + Care Team Providers + +------+ + | Care Painter Touch Up Name | Role | Phone | + +------+ + | Chato Matson MD | PP | | + +------+ + Source Comments EULOGIO is fully live on both [facility] and 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 | | -secretions improving, cough strong -s/p [...] stayExtubated 03/22, started on | | [place] I9Alajh infusion begun 03/22 for daily goal -1 [...] | | | INC | | | [id number] | | Tejal Pettit MD | | | | | | X / | | | | | | | | /[address] | | | | | | | | [id number] | + +------+--------+ +--------+--------+--------+ Results Not on [...] | PPO | [phone] | [address] [address] [place] | | | CROSS | | | [address] | [place] [address] | | | FEDERA | | | | | | | L | | | | | + +--------+ +--------+ + + | MEDICAID [place] | OHP | xxxxxxxx | Medica | [phone] | [address] [address] | | | PLUS | | id | [phone] | [place] [address] | | | OPEN | | | [...] | Self [birth year] | Home: | [address] | | | al/Fam | | 1956 | [phone] | [address] [place] | | | taiwo | | | [phone] | [phone] | + +--------+ +--------+ + +
--- OUTSIDE RECORDS SUMMARY | ~2018-12-11 | XMS | Encounter Summary ---
Demographics + + + | Address | [address] | | | [place] [address] | + + + | Home Phone [...] | [place] | | | | | [address] | | + + + + + Care Team Providers + +------+ + | Care Blindstitch Lapel Padder Name | Role | Phone | + [...] | | | involving | [address] [place] | | | | | [place] | [place], [place] | [place] | | | | | coronary | [address] | [address] | | | | | artery of | Phone: | Phone: | | | | | [place] heart | [phone] | [phone] | | | | | without | Fax: | Fax: | | | | | angina | [phone] | [phone] | | | | | pectoris | | | + + + + + + + Encounter Details +--------+---------+ + + + | Date | Type | Department | Care Team | Description | +--------+---------+ + + + | 11/18/ | Office | [facility] | Randy Figueroa, | Coronary artery | | 2019 | Visit | MED CTR CARDIAC | [address] | disease involving | | | | REHABILITATION [address] | [place], | [place] coronary | | | | [address] [place] | [place] [address] | artery of [place] | | | | [place] [address] | [phone] | heart without angina | | | | [phone] | | pectoris (Primary | | | [...] note may be different from the origin [facility] CARDIAC REHABILITATION [address] [facility] [address] Cardiac Rehab Date: 11/18/2018 Patient Information Patient Name: Bob Will Date of : 1955 Age: 63 y.o. Encounter Diagnoses Code Name Primary? I25.10 Coronary artery disease involving [place] coronary artery of [place] heart without angina pectoris Yes Z98.61 Post [...] | | | | | | [place] [address] | | | | | | [phone] | | | | | | | | +--------+ + + + + | 12/16/ | Office | Cardiac | Randy Figueroa, | | | 2018 | Visit | Rehabilitation | MD [address] | | | | | | [place], | | | | | | [place] [address] | | | | | | [phone] | | | | | | | | +--------+ + + + + | 12/21/ | Office | Cardiac | Randy Figueroa, | | | 2018 | Visit | Rehabilitation | MD [address] | | | | | | [place], | | | | | | [place] [address] | | | | | | [phone] | | | | | | | | +--------+ + + + + | 12/23/ | Office | Cardiac | Randy Figueroa, | | | 2018 | Visit | Rehabilitation | MD [address] | | | | | | [place], | | | | | | [place] [address] | | | | | | [phone] | | | | | | | | +--------+ + + + + | 12/28/ | Office | Cardiac | Randy Figueroa, | | | 2018 | Visit | Rehabilitation | MD [address] | | | | | | [place], | | | | | | [place] [address] | | | | | | [phone] | | | | | | | | +--------+ + + + + | 12/30/ | Office | Cardiac | Randy Figueroa, | | | 2018 | Visit | Rehabilitation | MD [address] | | | | | | [place], | | | | | | [place] [address] | | | | | | [phone] | | | | | | | | +--------+ + + + + | 01/04/ | Office | Cardiac | Randy Figueroa, | | | 2018 | Visit | Rehabilitation | MD [address] | | | | | | [place], | | | | | | [place] [address] | | | | | | [phone] | | | | | | | | +--------+ + + + + | 01/06/ | Office | Cardiac | Randy Figueroa, | | | 2018 | Visit | Rehabilitation | MD [address] | | | | | | [place], | | | | | | [place] [address] | | | | | | [phone] | | | | | | | | +--------+ + + + + | 01/11/ | Office | Cardiac | Randy Figueroa, | | | 2018 | Visit | Rehabilitation | MD [address] | | | | | | [place], | | | | | | [place] [address] | | | | | | [phone] | | | | | | | | +--------+ + + + + | 03/24/ | Procedure | Cardiology | | | | 2018 | visit | | | | +--------+ + + + + | 03/24/ | Office | Cardiology | Jenny, | | | 2018 | Visit | | AD[address]SH [address] | | | | | | [address] [place], | | | | | | [place] [address] | | | | | | [phone] | | | | | | | | +--------+ + + + + as of this encounter Visit Diagnoses + + | Diagnosis | + + | Coronary artery disease involving [place] coronary artery of [place] heart without | | angina pectoris - Primary | + + | Post PTCA | + + | Postsurgical percutaneous transluminal coronary angioplasty status | + +"
--- OUTSIDE RECORDS SUMMARY | ~2018-12-11 | XMS | Encounter Summary ---
Demographics + + + | Address | [address] | | | [place] [address] | + + + | Home Phone | | + + + | Preferred Language | Unknown | + + + | Marital Status | | + + + | Anabaptist Affiliation | Unknown | + + + | Race | Unknown | + + + | Ethnic Group | Unknown | + + + Author + + + | Author | [facility] | | | and [place] | + + + | Organization | [facility] | | | and [place] | + + + | Address | Unknown | + + + | Phone | Unavailable | + + + Support + + + + + | Name | Relationship | Address | Phone | + + + + + | [place] Will | ECON | [place] | | | | | [address] | | + + + + + Care Team Providers + +------+ + | Care Circuit Breaker Assembler Name | Role | Phone | [...] | | CARDIOLOGY [address] | [address] | | | | | [place], | [place], | | | | | [place] [address] | [place] [address] | | | | | [phone] | [phone] | | | | | | | [...] Visit | Rehabilitation | MD [address] | | | | | | [place], | | | | | | [place] [address] | | | | | | [phone] | | | | | | | | +--------+ + + + + | 12/16/ | Office | Cardiac | Randy Figueroa, | | | 2018 | Visit | Rehabilitation | MD [address] | | | | | | [place], | | | | | | [place] [address] | | | | | | [phone] | | | | | | | | +--------+ + + + + | 12/21/ | Office | Cardiac | Randy Figueroa, | | | 2018 | Visit | Rehabilitation | MD [address] | | | | | | [place], | | | | | | [place] [address] | | | | | | [phone] | | | | | | | | +--------+ + + + + | 12/23/ | Office | Cardiac | Randy Figueroa, | | | 2018 | Visit | Rehabilitation | MD [address] | | | | | | [place], | | | | | | [place] [address] | | | | | | [phone] | | | | | | | | +--------+ + + + + | 12/28/ | Office | Cardiac | Randy Figueroa, | | | 2018 | Visit | Rehabilitation | MD [address] | | | | | | [place], | | | | | | [place] [address] | | | | | | [phone] | | | | | | | | +--------+ + + + + | 12/30/ | Office | Cardiac | Randy Figueroa, | | | 2018 | Visit | Rehabilitation | MD [address] | | | | | | [place], | | | | | | [place] [address] | | | | | | [phone] | | | | | | | | +--------+ + + + + | 01/04/ | Office | Cardiac | Randy Figueroa, | | | 2018 | Visit | Rehabilitation | MD [address] | | | | | | [place], | | | | | | [place] [address] | | | | | | [phone] | | | | | | | | +--------+ + + + + | 01/06/ | Office | Cardiac | Randy Figueroa, | | | 2018 | Visit | Rehabilitation | MD [address] | | | | | | [place], | | | | | | [place] [address] | | | | | | [phone] | | | | | | | | +--------+ + + + + | 01/11/ | Office | Cardiac | Randy Figueroa, | | | 2018 | Visit | Rehabilitation | MD [address] | | | | | | [place], | | | | | | [place] [address] | | | | | | [phone] | | | | | | | [...] | | | | | | [place] [address] | | | | | | [phone] | | | | | | | | +--------+ + + + + as of this encounter Visit Diagnoses Not on filein this encounter"
--- OUTSIDE RECORDS SUMMARY | ~2018-12-11 | XMS | Encounter Summary ---
Demographics + + + | Address | [address] | | | [place] [address] | + + + | Home Phone [...] | Author | [facility] | | | and [place] | + + + | Organization | [facility] [...] [place] | | | | | [address] | | + + + + + Care Team Providers + +------+ + | Care Front Counter Clerk Name | Role | Phone | [...] + + | 11/18/ | Telephone | [facility] | Jenny, | Blood Pressure | | 2019 | | CARDIOLOGY [address] | [place], LAP MAKER [address] | | | | | [place], | [place], | | | | | [place] [address] | [place] [address] | | | | | [phone] | [phone] | | | | | | | [...] | | | | | | [place] [address] | | | | | | [phone] | | | | | | | | +--------+ + + + + | 12/16/ | Office | Cardiac | Randy Figueroa, | | | 2018 | Visit | Rehabilitation | MD [address] | | | | | | [place], | | | | | | [place] [address] | | | | | | [phone] | | | | | | | | +--------+ + + + + | 12/21/ | Office | Cardiac | Randy Figueroa, | | | 2018 | Visit | Rehabilitation | MD [address] | | | | | | [place], | | | | | | [place] [address] | | | | | | [phone] | | | | | | | | +--------+ + + + + | 12/23/ | Office | Cardiac | Randy Figueroa, | | | 2018 | Visit | Rehabilitation | MD [address] [place] | | | | | | [place], | | | | | | [place] [address] | | | | | | [phone] | | | | | | | | +--------+ + + + + | 12/28/ | Office | Cardiac | Randy Figueroa, | | | 2018 | Visit | Rehabilitation | MD [address] [place] | | | | | | [place], | | | | | | [place] [address] | | | | | | [phone] | | | | | | | | +--------+ + + + + | 12/30/ | Office | Cardiac | Randy Figueroa, | | | 2018 | Visit | Rehabilitation | MD [address] [place] | | | | | | [place], | | | | | | [place] [address] | | | | | | [phone] | | | | | | | | +--------+ + + + + | 01/04/ | Office | Cardiac | Randy Figueroa, | | | 2018 | Visit | Rehabilitation | MD [address] [place] | | | | | | [place], | | | | | | [place] [address] | | | | | | [phone] | | | | | | | | +--------+ + + + + | 01/06/ | Office | Cardiac | Randy Figueroa, | | | 2018 | Visit | Rehabilitation | MD [address] [place] | | | | | | [place], | | | | | | [place] [address] | | | | | | [phone] | | | | | | | | +--------+ + + + + | 01/11/ | Office | Cardiac | Randy Figueroa, | | | 2018 | Visit | Rehabilitation | MD [address] [place] | | | | | | [place], | | | | | | [place] [address] | | | | | | [phone] | | | | | | | [...] | | | | | | [place] [address] | | | | | | [phone] | | | | | | | | +--------+ + + + + as of this encounter Visit Diagnoses Not on filein this encounter"
--- OUTSIDE RECORDS SUMMARY | ~2018-12-11 | XMS | Encounter Summary ---
Demographics + + + | Address | [address] | | | [place] [address] | + + + | Home Phone | | + + + | Preferred Language | Unknown | + + + | Marital Status | | + + + | Yarsanism Affiliation | Unknown | + + + [...] | [place] | | | | | [address] | | + + + + + Care Team Providers + +------+ + | Care Shipper/Receiver Name | Role | Phone | + [...] | | | involving | [address] [place] | | | | | [place] | [place] | [place] | | | | | coronary | [address] | [address] | | | | | artery of | Phone: | Phone: | | | | | [place] heart | [phone] | [phone] | | | | | without | Fax: | Fax: | | | | | angina | [phone] | [phone] | | | | | pectoris | | | + + + + + + + Encounter Details +--------+---------+ + + + | Date | Type | Department | Care Team | Description | +--------+---------+ + + + | 11/30/ | Office | [facility] | Carolina Randy, | Coronary artery | | 2019 | Visit | MED CTR CARDIAC | MD [address] | disease involving | | | | REHABILITATION [address] | [place], | [place] coronary | | | | [address] [place] | [place] [address] | artery of [place] | | | | [place] [address] | [phone] | heart without angina | | | | [phone] | | pectoris (Primary | | | [...] this encounter Progress Notes Gael Woo - 11/30/2018 1000 PDTFormatting of this note may be different from the origin al. [facility] MED CTR CARDIAC REHABILITATION [address] [place] [address] Cardiac Rehab Date: 11/30/2018 Patient Information Patient Name: Bob Will Date of : 1955 Age: 63 y.o. Encounter Diagnoses Code Name Primary? I25.10 Coronary artery disease involving [place] coronary artery of [place] heart without angina pectoris Yes Z98.61 Post [...] 11/30/2018 14:03 Patient Name: Bob Will/: 1955/ this enco unter Plan of Treatment +--------+ + + + + | Date | Type | Specialty | Care Team | Description | +--------+ + + + + | 12/14/ | Office | Cardiac | Randy Figueroa, | | | 2019 | Visit | Rehabilitation | MD [address] | | | | | | [place], | | | | | | [place] [address] | | | | | | [phone] | | | | | | | | +--------+ + + + + | 12/16/ | Office | Cardiac | Randy Figueroa, | | | 2018 | Visit | Rehabilitation | MD [address] | | | | | | [place], | | | | | | [place] [address] | | | | | | [phone] | | | | | | | | +--------+ + + + + | 12/21/ | Office | Cardiac | Randy Figueroa, | | | 2018 | Visit | Rehabilitation | MD [address] | | | | | | [place], | | | | | | [place] [address] | | | | | | [phone] | | | | | | | | +--------+ + + + + | 12/23/ | Office | Cardiac | Randy Figueroa, | | | 2018 | Visit | Rehabilitation | MD [address] | | | | | | [place], | | | | | | [place] [address] | | | | | | [phone] | | | | | | | | +--------+ + + + + | 12/28/ | Office | Cardiac | Randy Figueroa, | | | 2018 | Visit | Rehabilitation | MD [address] | | | | | | [place], | | | | | | [place] [address] | | | | | | [phone] | | | | | | | | +--------+ + + + + | 12/30/ | Office | Cardiac | Randy Figueroa, | | | 2018 | Visit | Rehabilitation | MD [address] | | | | | | [place], | | | | | | [place] [address] | | | | | | [phone] | | | | | | | | +--------+ + + + + | 01/04/ | Office | Cardiac | Randy Figueroa, | | 2018 | Visit | Rehabilitation | MD [address] | | | | | | [place], | | | | | | [place] [address] | | | | | | [phone] | | | | | | | | +--------+ + + + + | 01/06/ | Office | Cardiac | Randy Figueroa, | | | 2018 | Visit | Rehabilitation | MD [address] | | | | | | [place], | | | | | | [place] [address] | | | | | | [phone] | | | | | | | | +--------+ + + + + | 01/11/ | Office | Cardiac | Randy Figueroa, | | | 2018 | Visit | Rehabilitation | [address] | | | | | | [place], | | | | | | [place] [address] | | | | | | [phone] | | | | | | | | +--------+ + + + + | 03/24/ | Procedure | Cardiology | | | | 2018 | visit | | | | +--------+ + + + + | 03/24/ | Office | Cardiology | Jenny, | | | 2018 | Visit | | Hans[address]ARSH [address] | | | | | | [place], | | | | | | [place] [address] | | | | | | [phone] | | | | | | | | +--------+ + + + + as of this encounter Visit Diagnoses + + | Diagnosis | + + | Coronary artery disease involving [place] coronary artery of [place] heart without | | angina pectoris - Primary | + + | Post PTCA | + + | Postsurgical percutaneous transluminal coronary angioplasty status | + +"
--- OUTSIDE RECORDS SUMMARY | ~2018-12-11 | XMS | Encounter Summary ---
Demographics + + + | Address | [address] | | | [place] [address] | + + + | Home Phone [...] | [place] | | | | | [address] | | + + + + + Care Team Providers + +------+ + | Care Drafter Detail Name | Role | Phone | + [...] | | | involving | [address] | [place] | | | | | [place] | [place] | [place] | | | | | coronary | [address] | [address] | | | | | artery of | Phone: | Phone: | | | | | [place] heart | [phone] | [phone] | | | | | without | Fax: | Fax: | | | | | angina | [phone] | [phone] | | | | | pectoris | | | + + + + + + + Encounter Details +--------+---------+ + + + | Date | Type | Department | Care Team | Description | +--------+---------+ + + + | 09/14/ | Office | [facility] | Randy Figueroa, | Coronary artery | | 2019 | Visit | MED CTR CARDIAC | MD [address] | disease, angina | | | | REHABILITATION [address] | [place], | presence | | | | [address] [place] | [place] [address] | unspecified, | | | | [place] [address] | [phone] | unspecified vessel | | | | [phone] | | or lesion type, | | | | | | unspecified whether | | | | | | [place] or | | | | | | [...] note may be different from the origin [place] [facility] CARDIAC REHABILITATION [address] [place] [address] Cardiac Rehab Date: 09/14/2018 Patient Information Patient Name: Bob Will Date of : 1955 Age: 62 y.o. Encounter Diagnoses Code Name Primary? I25.10 Coronary artery disease, angina presence unspecified, unspecified vessel or lesi on type, unspecified whether [place] or transplanted heart Yes Z98.61 Post PTCA [...] Visit | Rehabilitation | MD [address] [place] | | | | | | [place], | | | | | | [place] [address] | | | | | | [phone] | | | | | | | | +--------+ + + + + | 12/16/ | Office | Cardiac | Randy Figueroa, | | | 2018 | Visit | Rehabilitation | MD [address] | | | | | | [place], | | | | | | [place] [address] | | | | | | [phone] | | | | | | | | +--------+ + + + + | 12/21/ | Office | Cardiac | Randy Figueroa, | | | 2018 | Visit | Rehabilitation | MD [address] | | | | | | [place], | | | | | | [place] [address] | | | | | | [phone] | | | | | | | | +--------+ + + + + | 12/23/ | Office | Cardiac | Randy Figueroa, | | | 2018 | Visit | Rehabilitation | MD [address] | | | | | | [place], | | | | | | [place] [address] | | | | | | [phone] | | | | | | | | +--------+ + + + + | 12/28/ | Office | Cardiac | Randy Figueroa, | | | 2018 | Visit | Rehabilitation | MD [address] | | | | | | [place], | | | | | | [place] [address] | | | | | | [phone] | | | | | | | | +--------+ + + + + | 12/30/ | Office | Cardiac | Randy Figueroa, | | | 2018 | Visit | Rehabilitation | MD [address] | | | | | | [place], | | | | | | [place] [address] | | | | | | [phone] | | | | | | | | +--------+ + + + + | 01/04/ | Office | Cardiac | Randy Figueroa, | | | 2018 | Visit | Rehabilitation | MD [address] | | | | | | [place], | | | | | | [place] [address] | | | | | | [phone] | | | | | | | | +--------+ + + + + | 01/06/ | Office | Cardiac | Randy Figueroa, | | | 2018 | Visit | Rehabilitation | [address] | | | | | | [place], | | | | | | [place] [address] | | | | | | [phone] | | | | | | | | +--------+ + + + + | 01/11/ | Office | Cardiac | Randy Figueroa, | | | 2018 | Visit | Rehabilitation | MD [address] | | | | | | [place], | | | | | | [place] [address] | | | | | | [phone] | | | | | | | [...] [place], | | | | | | [place] [address] | | | | | | [phone] | | | | | | | | +--------+ + + + + as of this encounter Visit Diagnoses + + | Diagnosis | + + | Coronary artery disease, angina presence unspecified, unspecified vessel or lesion | | type, unspecified whether [place] or transplanted heart - Primary | + + | Post PTCA | + + | Postsurgical percutaneous transluminal coronary angioplasty status | + +"
--- OUTSIDE RECORDS SUMMARY | ~2018-12-11 | XMS | Encounter Summary ---
Demographics + + + | Address | [address] | | | [place] [address] | + + + | Home Phone [...] | [place] | | | | | [address] | | + + + + + Care Team Providers + +------+ + | Care Interior Specialist Name | Role | Phone | [...] | Cardiac | Diagnoses | Kacie, | [facility] | | | Services | Rehabilitatio | Coronary | Janel | | | | Required | n | artery | ADARSH Jacobs | Rehabilitatio | | | | | disease | [address] | [address] | | | | | involving | [address] | [place] | | | | | [place] | [place] | [place] | | | | | coronary | [address] | [address] | | | | | artery of | Phone: | Phone: | | | | | [place] heart | [phone] | [phone] | | | | | without | Fax: | Fax: | | | | | angina | [phone] | [phone] | | | | | pectoris | | | + + + + + + + Encounter Details +--------+---------+ + + + | Date | Type | Department | Care Team | Description | +--------+---------+ + + + | 09/21/ | Office | [facility] | Rahulyazshiraz Lindarahul, | Coronary artery | | 2019 | Visit | MED CTR CARDIAC | MD [address] [place] | disease, angina | | | | REHABILITATION [address] | [address] [place], | presence | | | | [address] [place] | [place] [address] | unspecified, | | | | [place] [address] | [phone] | unspecified vessel | | | | [phone] | | or lesion type, | | | | | | unspecified whether | | | | | | [place] or | | | | | | [...] may be different from the original. [facility] CARDIAC REHABILITATION [address] [place] [address] Cardiac Rehab Date: 09/21/2018 Patient Information Patient Name: Bob Will Date of : 1955 Age: 62 y.o. Encounter Diagnoses Code Name Primary? I25.10 Coronary artery disease, angina presence unspecified, unspecified vessel or lesi on type, unspecified whether [place] or transplanted heart Yes Number of Visits [...] Visit | Rehabilitation | MD [address] | | | | | | [place], | | | | | | [place] [address] | | | | | | [phone] | | | | | | | | +--------+ + + + + | 12/16/ | Office | Cardiac | Randy Figueroa, | | | 2018 | Visit | Rehabilitation | MD [address] | | | | | | [place], | | | | | | [place] [address] | | | | | | [phone] | | | | | | | | +--------+ + + + + | 12/21/ | Office | Cardiac | Randy Figueroa, | | | 2018 | Visit | Rehabilitation | MD [address] [place] | | | | | | [place], | | | | | | [place] [address] | | | | | | [phone] | | | | | | | | +--------+ + + + + | 12/23/ | Office | Cardiac | Randy Figueroa, | | | 2018 | Visit | Rehabilitation | MD [address] | | | | | | [place], | | | | | | [place] [address] | | | | | | [phone] | | | | | | | | +--------+ + + + + | 12/28/ | Office | Cardiac | Randy Figueroa, | | | 2018 | Visit | Rehabilitation | MD [address] | | | | | | [place], | | | | | | [place] [address] | | | | | | [phone] | | | | | | | | +--------+ + + + + | 12/30/ | Office | Cardiac | Randy Figueroa, | | | 2018 | Visit | Rehabilitation | MD [address] | | | | | | [place], | | | | | | [place] [address] | | | | | | [phone] | | | | | | | | +--------+ + + + + | 01/04/ | Office | Cardiac | Randy Figueroa, | | 2018 | Visit | Rehabilitation | MD [address] | | | | | | [place], | | | | | | [place] [address] | | | | | | [phone] | | | | | | | | +--------+ + + + + | 01/06/ | Office | Cardiac | Randy Figueroa, | | | 2018 | Visit | Rehabilitation | MD [address] | | | | | | [place], | | | | | | [place] [address] | | | | | | [phone] | | | | | | | | +--------+ + + + + | 01/11/ | Office | Cardiac | Randy Figueroa, | | | 2018 | Visit | Rehabilitation | MD [address] | | | | | | [place], | | | | | | [place] [address] | | | | | | [phone] | | | | | | | | +--------+ + + + + | 03/24/ | Procedure | Cardiology | | | | 2018 | visit | | | | +--------+ + + + + | 03/24/ | Office | Cardiology | Jenny, | | | 2018 | Visit | | ADARSH Santo [address] | | | | | | [place], | | | | | | [place] [address] | | | | | | [phone] | | | | | | | | +--------+ + + + + as of this encounter Visit Diagnoses + + | Diagnosis | + + | Coronary artery disease, angina presence unspecified, unspecified vessel or lesion | | type, unspecified whether [place] or transplanted heart - Primary | + +"
--- OUTSIDE RECORDS SUMMARY | ~2018-12-11 | XMS | Encounter Summary ---
Demographics + + + | Address | [address] | | | [place] [address] | + + + | Home Phone [...] | [place] | | | | | [address] | | + + + + + Care Team Providers + +------+ + | Care Retail Attendant Name | Role | Phone | [...] | | | involving | [address] [place] | | | | | [place] | [place] | [place] | | | | | coronary | [address] | [address] | | | | | artery of | Phone: | Phone: | | | | | [place] heart | [phone] | [phone] | | | | | without | Fax: | Fax: | | | | | angina | [phone] | [phone] | | | | | pectoris | | | + + + + + + + Encounter Details +--------+---------+ + + + | Date | Type | Department | Care Team | Description | +--------+---------+ + + + | 09/14/ | Office | [facility] | Randy Figueroa, | Coronary artery | | 2019 | Visit | MED CTR CARDIAC | MD [address] | disease, angina | | | | REHABILITATION [address], | presence | | | | [address] [place] | [place] [address] | unspecified, | | | | [place] [address] | [phone] | unspecified vessel | | | | [phone] | | or lesion type, | | | | | | unspecified whether | | | | | | [place] or | | | | | | [...] note may be different from the origin idFletcher [facility] CARDIAC REHABILITATION [address] [place] [address] Cardiac Rehab Date: 09/14/2018 Patient Information Patient Name: Bob Will Date of : 1955 Age: 62 y.o. Encounter Diagnoses Code Name Primary? I25.10 Coronary artery disease, angina presence unspecified, unspecified vessel or lesi on type, unspecified whether [place] or transplanted heart Yes Z98.61 Post PTCA [...] Visit | Rehabilitation | MD [address] | | | | | | [place], | | | | | | [place] [address] | | | | | | [phone] | | | | | | | | +--------+ + + + + | 12/16/ | Office | Cardiac | Randy Figueroa, | | | 2018 | Visit | Rehabilitation | MD [address] | | | | | | [place], | | | | | | [place] [address] | | | | | | [phone] | | | | | | | | +--------+ + + + + | 12/21/ | Office | Cardiac | Randy Figueroa, | | | 2018 | Visit | Rehabilitation | MD [address] | | | | | | [place], | | | | | | [place] [address] | | | | | | [phone] | | | | | | | | +--------+ + + + + | 12/23/ | Office | Cardiac | Randy Figueroa, | | | 2018 | Visit | Rehabilitation | MD [address] | | | | | | [place], | | | | | | [place] [address] | | | | | | [phone] | | | | | | | | +--------+ + + + + | 12/28/ | Office | Cardiac | Randy Figueroa, | | | 2018 | Visit | Rehabilitation | MD [address] | | | | | | [place], | | | | | | [place] [address] | | | | | | [phone] | | | | | | | | +--------+ + + + + | 12/30/ | Office | Cardiac | Randy Figueroa, | | | 2018 | Visit | Rehabilitation | MD [address] | | | | | | [place], | | | | | | [place] [address] | | | | | | [phone] | | | | | | | | +--------+ + + + + | 01/04/ | Office | Cardiac | Randy Figueroa, | | | 2018 | Visit | Rehabilitation | MD [address] | | | | | | [place], | | | | | | [place] [address] | | | | | | [phone] | | | | | | | | +--------+ + + + + | 01/06/ | Office | Cardiac | Randy Figueroa, | | | 2018 | Visit | Rehabilitation | [address] | | | | | | [place], | | | | | | [place] [address] | | | | | | [phone] | | | | | | | | +--------+ + + + + | 01/11/ | Office | Cardiac | Randy Figueroa, | | | 2018 | Visit | Rehabilitation | MD [address] | | | | | | [place], | | | | | | [place] [address] | | | | | | [phone] | | | | | | | [...] [place], | | | | | | [place] [address] | | | | | | [phone] | | | | | | | | +--------+ + + + + as of this encounter Visit Diagnoses + + | Diagnosis | + + | Coronary artery disease, angina presence unspecified, unspecified vessel or lesion | | type, unspecified whether [place] or transplanted heart - Primary | + + | Post PTCA | + + | Postsurgical percutaneous transluminal coronary angioplasty status | + +"
--- OUTSIDE RECORDS SUMMARY | ~2018-12-11 | XMS | Clinical Summary ---
Demographics + + + | Address | [address] [place] [address] [address] | | | [place] [address] | + + + | Home Phone | | + + + | Preferred Language | Unknown | + + + | Marital Status | | + + + | Cheondoism Affiliation | Unknown | + + + | Race | Unknown | + + + | Ethnic Group | Unknown | + + + Author + + + | Author | Cassandra CLEAR | + + + | Organization | [facility] | + + + | Address | Unknown | + + + | Phone | Unavailable | + + + Support + + +---------+ + | Name | Relationship | Address | Phone | + + +---------+ + | Venice Mckeon | ECON | Unknown | | + + +---------+ + Care Team Providers + +------+ + | Care Shift Stacker Name | Role | Phone | + [...] + + | Father | | | [place] | | | | (Age | | [...] RON MCKEON Date of : 1955 | [facility] | | Performing Physician: Rocio | RADIOLOGY | | [facility] | | | | | | INDICATIONS [...] MV A Rohan: 0.86 m/s MV Dec York: 3.26 m/s2 | | | MV DecT: [...] | 21.47 mmHg TR Vmax: 2.31 m/s Surgery Teacher: DBS Authenticated | | | by: Rocio Barfieldmillry Report Date/Time: 11-04-2018 19:16:25 | | + + + + + | Procedure Note | + + | Sebastian, Rad Results In - 11/04/2018 7:20 PM PST Patient Name: Belkys MCKEON of | | : 5Accession: [id number] Physician: Rocio | | Alsamara INDICATIONS------ | [...] | 5.92 cmLVPWd: 1.01 cmLVOT Area: 3.17 [id number] Diam: 2.01 cm%FS: 15.56 %EF(Teich): | | [...] mlLAESV Index (A-L): 42.88 ml/m2LAAs A2C: 24.92 [id number] A-L | | A2C: 95.08 mlLALs A2C: 5.54 cmLAAs A4C: 19.37 [id number] A-L A4C: 70.66 mlLALs | | A4C: 4.50 cmRAAs: 18.79 [id number] A-L: 67.38 mlRAESV MOD: 63.17 mlRALs: 4.44 | | cmTAPSE: 2.12 cmAV maxP.82 mmHgAV meanP.56 mmHgAV Vmax: 1.30 m/Emil | | Vmean: 0.88 m/Emil VTI: 25.33 cmAVA Vmax: 2.55 cm2AVA (VTI): 2.49 kw3VQCH (Vmax): | | 0.00 cm2/m2AVAI (VTI): 0.00 cm2/m2LVOT maxP.40 mmHgLVOT meanP.91 | | mmHgLVSI Dopp: 29.85 ml/m2LVSV Dopp: 63.29 mlLVOT Vmax: 1.04 m/sLVOT Vmean: 0.64 | | m/sLVOT VTI: 19.92 cmMV A Rohan: 0.86 m/sMV Dec York: 3.26 m/s2MV DecT: 218.32 | | msMV E Rohan: 0.71 m/sMV E/A Ratio: 0.82 MV PHT: 63.31 msMVA By PHT: 3.47 | | cc9Dvhigt e': 0.04 m/sSeptal E/e': 15.51 Lateral e': 0.06 m/sLateral E/e': 10.91 | | RAP: 5 mmHgRVSP: 26.47 mmHgTR maxP.47 mmHgTR Vmax: 2.31 m/sSonographer: | | DBSAuthenticated by: Elinagwendolyn [facility] Date/Time: 11-04-2018 19:16:25IMPRESSION:1. | | This was [...] A Rohan: 0.86 m/s | |MV Dec [place]: 3.26 m/s2 | |MV DecT: 218.32 ms [...] |TR Vmax: 2.31 m/s | | | |Surgery Teacher: DBS | |Authenticated by: Rocio Pearl | [...] | [address] | [place] [address] | | + + + + + [...] +------+-------+ + | MEDICAID | [place] | [id number] | | | [address] | | | N | | | | [place] | | | [place] | | | | [address] | | | DIRECT CUSTOMER SERVICE REPRESENTATIVE | | | | | + +--------+ [...] | Self [birth year] Home: | [facility] [address] | | | al/Fam | | 1956 | [phone] [address] [place], | | | [place] | | | [address] | [place] [address] | + +--------+ +--------+ + +
--- OUTSIDE RECORDS SUMMARY | ~2018-12-11 | XMS | Encounter Summary ---
Demographics + + + | Address | [address] [place] [address] [address] | | | [place] [address] | + + + | Home Phone | | + + + | Preferred Language | Unknown | + + + | Marital Status | | + + + | Orthodox Affiliation | Unknown | + + + | Race | Unknown | + + + | Ethnic Group | Unknown | + + + Author + + + | Author | Cassandra Xcerion | + + + | Organization | [facility] | + + + | Address | Unknown | + + + | Phone | Unavailable | + + + Support + + +---------+ + | Name | Relationship | Address | Phone | + + +---------+ + | Venice Mckeon | ECON | Unknown | | + + +---------+ + Care Team Providers + +------+ + | Care Medical Billing Assistant Name | Role | Phone | [...] HF chronicity, | | | | | [address] | unspecified heart | | | | [...] RON MCKEON Date of : 1955 | [facility] | | Performing Physician: Rocio | RADIOLOGY | | [facility] | | | | | | [...] MV A Rohan: 0.86 m/s MV Dec Haywood: 3.26 m/s2 | | | MV DecT: [...] | 21.47 mmHg TR Vmax: 2.31 m/s Mft: ANJANA Authenticated | | | by: Rocio [facility] Report Date/Time: 11-04-2018 19:16:25 | | + + + + + | Procedure Note | + + | Sebastian, Rad Results In - 11/04/2018 7:20 PM PST Patient Name: Belkys MCKEON of | | : 5Accession: [id number] Physician: Rocio | | [facility] INDICATIONS------ | | -----CHFCONCLUSIONS 1. This [...] | 5.92 cmLVPWd: 1.01 cmLVOT Area: 3.17 [id number] Diam: 2.01 cm%FS: 15.56 %EF(Teich): | | [...] mlLAESV Index (A-L): 42.88 ml/m2LAAs A2C: 24.92 [id number] A-L | | A2C: 95.08 mlLALs A2C: 5.54 cmLAAs A4C: 19.37 zk7QFUDH A-L A4C: 70.66 mlLALs | | A4C: 4.50 cmRAAs: 18.79 kz2DFDMP A-L: 67.38 mlRAESV MOD: 63.17 mlRALs: 4.44 | | cmTAPSE: 2.12 cmAV maxP.82 mmHgAV meanP.56 mmHgAV Vmax: 1.30 m/Emil | | Vmean: 0.88 m/Emil VTI: 25.33 cmAVA Vmax: 2.55 cm2AVA (VTI): 2.49 bm0QOIE (Vmax): | | 0.00 cm2/m2AVAI (VTI): 0.00 cm2/m2LVOT maxP.40 mmHgLVOT meanP.91 | | mmHgLVSI Dopp: 29.85 ml/m2LVSV Dopp: 63.29 mlLVOT Vmax: 1.04 m/sLVOT Vmean: 0.64 | | m/sLVOT VTI: 19.92 cmMV A Rohan: 0.86 m/sMV Dec Haywood: 3.26 m/s2MV DecT: 218.32 | | msMV E Rohan: 0.71 m/sMV E/A Ratio: 0.82 MV PHT: 63.31 msMVA By PHT: 3.47 | | jy5Qzpszc e': 0.04 m/sSeptal E/e': 15.51 Lateral e': 0.06 m/sLateral E/e': 10.91 | | RAP: 5 mmHgRVSP: 26.47 mmHgTR maxP.47 mmHgTR Vmax: 2.31 m/sSonographer: | | DBSAuthenticated by: Mershed [facility] HospitalReport Date/Time: 11-04-2018 19:16:25IMPRESSION:1. | | This [...] A Rohan: 0.86 m/s | |MV Dec Haywood: 3.26 m/s2 | |MV DecT: 218.32 ms [...] |TR Vmax: 2.31 m/s | | | |Mft: DBS | |Authenticated by: Rocio Pearl | [...] | + + + + + | [facility] | [address] | [place] [address] | | + + + + + in this encounter Visit Diagnoses + + | Diagnosis | + + | Congestive heart failure, unspecified HF chronicity, unspecified heart failure type | | (HCC) | + +"
--- OUTSIDE RECORDS SUMMARY | ~2018-12-11 | XMS | Encounter Summary ---
Demographics + + + | Address | [address] | | | [place] [address] | + + + | Home Phone [...] | [place] | | | | | [address] | | + + + + + Care Team Providers + +------+ + | Care Hydraulic Lift Operator Name | Role | Phone | [...] | | | involving | [address] [place] | | | | | [place] | [place] | [place] | | | | | coronary | [address] | [address] | | | | | artery of | Phone: | Phone: | | | | | [place] heart | [phone] | [phone] | | | | | without | Fax: | Fax: | | | | | angina | [phone] | [phone] | | | | | pectoris | | | + + + + + + + Encounter Details +--------+---------+ + + + | Date | Type | Department | Care Team | Description | +--------+---------+ + + + | 09/28/ | Office | [facility] | Randy Figueroa, | Coronary artery | | 2019 | Visit | MED CTR CARDIAC | MD [address] | disease, angina | | | | REHABILITATION [address] | [address], | presence | | | | [address] [place] | [place] [address] | unspecified, | | | | [place] [address] | [phone] | unspecified vessel | | | | [phone] | | or lesion type, | | | | | | unspecified whether | | | | | | [place] or | | | | | | [...] note may be different from the origin kyFletcher [facility] CARDIAC REHABILITATION [address] [place] [address] Cardiac Rehab Date: 09/28/2018 Patient Information Patient Name: Bob Will Date of : 1955 Age: 62 y.o. Encounter Diagnoses Code Name Primary? I25.10 Coronary artery disease, angina presence unspecified, unspecified vessel or lesi on type, unspecified whether [place] or transplanted heart Yes Z98.61 Post PTCA [...] Visit | Rehabilitation | MD [address] | | | | | | [place], | | | | | | [place] [address] | | | | | | [phone] | | | | | | | | +--------+ + + + + | 12/16/ | Office | Cardiac | Randy Figueroa, | | | 2018 | Visit | Rehabilitation | MD [address] | | | | | | [place], | | | | | | [place] [address] | | | | | | [phone] | | | | | | | | +--------+ + + + + | 12/21/ | Office | Cardiac | Randy Figueroa, | | | 2018 | Visit | Rehabilitation | MD [address] | | | | | | [place], | | | | | | [place] [address] | | | | | | [phone] | | | | | | | | +--------+ + + + + | 12/23/ | Office | Cardiac | Randy Figueroa, | | | 2018 | Visit | Rehabilitation | MD [address] | | | | | | [place], | | | | | | [place] [address] | | | | | | [phone] | | | | | | | | +--------+ + + + + | 12/28/ | Office | Cardiac | Randy Figueroa, | | | 2018 | Visit | Rehabilitation | MD [address] | | | | | | [place], | | | | | | [place] [address] | | | | | | [phone] | | | | | | | | +--------+ + + + + | 12/30/ | Office | Cardiac | Randy Figueroa, | | | 2018 | Visit | Rehabilitation | MD [address] | | | | | | [place], | | | | | | [place] [address] | | | | | | [phone] | | | | | | | | +--------+ + + + + | 01/04/ | Office | Cardiac | Randy Figueroa, | | | 2018 | Visit | Rehabilitation | MD [address] | | | | | | [place], | | | | | | [place] [address] | | | | | | [phone] | | | | | | | | +--------+ + + + + | 01/06/ | Office | Cardiac | Randy Figueroa, | | | 2018 | Visit | Rehabilitation | [address] | | | | | | [place], | | | | | | [place] [address] | | | | | | [phone] | | | | | | | | +--------+ + + + + | 01/11/ | Office | Cardiac | Randy Figueroa, | | | 2018 | Visit | Rehabilitation | MD [address] | | | | | | [place], | | | | | | [place] [address] | | | | | | [phone] | | | | | | | | +--------+ + + + + | 03/24/ | Procedure | Cardiology | | | | 2018 | visit | | | | +--------+ + + + + | 03/24/ | Office | Cardiology | Jenny, | | | 2018 | Visit | | [address] | | | | | | [address], | | | | | | [place] [address] | | | | | | [phone] | | | | | | | | +--------+ + + + + as of this encounter Visit Diagnoses + + | Diagnosis | + + | Coronary artery disease, angina presence unspecified, unspecified vessel or lesion | | type, unspecified whether [place] or transplanted heart - Primary | + + | Post PTCA | + + | Postsurgical percutaneous transluminal coronary angioplasty status | + +"
--- OUTSIDE RECORDS SUMMARY | ~2018-12-11 | XMS | Encounter Summary ---
Demographics + + + | Address | [address] | | | [place] [address] | + + + | Home Phone [...] [place] | | | | | [address] | | + + + + + Care Team Providers + +------+ + | Care Plodder Operator Name | Role | Phone | [...] + | 10/27/ | Telephone | [facility] | Jenny, | Other (medication | | 2018 | | CARDIOLOGY [address] | [address] | issue) | | | | [place], | [place], | | | | | [place] [address] | [place] [address] | | | | | [phone] | [phone] | | | | | | | [...] | | | | | | [place] [address] | | | | | | [phone] | | | | | | | | +--------+ + + + + | 12/16/ | Office | Cardiac | Randy Figueroa, | | | 2018 | Visit | Rehabilitation | MD [address] | | | | | | [place], | | | | | | [place] [address] | | | | | | [phone] | | | | | | | | +--------+ + + + + | 12/21/ | Office | Cardiac | Randy Figueroa, | | | 2018 | Visit | Rehabilitation | MD [address] | | | | | | [place], | | | | | | [place] [address] | | | | | | [phone] | | | | | | | | +--------+ + + + + | 12/23/ | Office | Cardiac | Randy Figueroa, | | | 2018 | Visit | Rehabilitation | MD [address] [place] | | | | | | [place], | | | | | | [place] [address] | | | | | | [phone] | | | | | | | | +--------+ + + + + | 12/28/ | Office | Cardiac | Randy Figueroa, | | | 2018 | Visit | Rehabilitation | MD [address] [place] | | | | | | [place], | | | | | | [place] [address] | | | | | | [phone] | | | | | | | | +--------+ + + + + | 12/30/ | Office | Cardiac | Randy Figueroa, | | | 2018 | Visit | Rehabilitation | MD [address] [place] | | | | | | [place], | | | | | | [place] [address] | | | | | | [phone] | | | | | | | | +--------+ + + + + | 01/04/ | Office | Cardiac | Randy Figueroa, | | | 2018 | Visit | Rehabilitation | MD [address] [place] | | | | | | [place], | | | | | | [place] [address] | | | | | | [phone] | | | | | | | | +--------+ + + + + | 01/06/ | Office | Cardiac | Randy Figueroa, | | | 2018 | Visit | Rehabilitation | MD [address] [place] | | | | | | [place], | | | | | | [place] [address] | | | | | | [phone] | | | | | | | | +--------+ + + + + | 01/11/ | Office | Cardiac | Randy Figueroa, | | | 2018 | Visit | Rehabilitation | MD [address] [place] [address] | | | | | | [place], | | | | | | [place] [address] | | | | | | [phone] | | | | | | | [...] | | | | | | [place] [address] | | | | | | [phone] | | | | | | | [...]
--- OUTSIDE RECORDS SUMMARY | ~2018-12-11 | XMS | Encounter Summary ---
Demographics + + + | Address | [address] | | | [place] [address] | + + + | Home Phone [...] | [place] | | | | | [address] | | + + + + + Care Team Providers + +------+ + | Care Sensitometrist Name | Role | Phone | + [...] | | | involving | [address] [place] | | | | | [place] | [place] | [place] | | | | | coronary | [address] | [address] | | | | | artery of | Phone: | Phone: | | | | | [place] heart | [phone] | [phone] | | | | | without | Fax: | Fax: | | | | | angina | [phone] | [phone] | | | | | pectoris | | | + + + + + + + Encounter Details +--------+---------+ + + + | Date | Type | Department | Care Team | Description | +--------+---------+ + + + | 09/30/ | Office | [facility] | Carolina Lindarisa, | Coronary artery | | 2019 | Visit | MED CTR CARDIAC | MD [address] | disease, angina | | | | REHABILITATION [address] [place], | presence | | | | [address] [place] | [place] [address] | unspecified, | | | | [place] [address] | [phone] | unspecified vessel | | | | [phone] | | or lesion type, | | | | | | unspecified whether | | | | | | [place] or | | | | | | [...] this encounter Progress Notes Gael Woo - 09/30/2018 1000 PSTFormatting of this note may be different from the origin vaFletcher [facility] CARDIAC REHABILITATION [address] [place] [address] Cardiac Rehab 60 Day Review Date: 09/30/2018 Patient Information Patient Name: Bob Will Date of : 1955 Age: 62 y.o. Referring Provider: Randy Figueroa MD Encounter Diagnoses Code Name Primary? I25.10 Coronary artery disease, angina presence unspecified, unspecified vessel or lesi on type, unspecified whether [place] or transplanted heart Yes Z98.61 Post PTCA Cardiac Rehab Phase II Leon atment Plan Bob Will (Bob) is a 62 y.o. 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 He has recently increased [...] RPE: 3-4/10 60 Day exercise assessment: Date: 09/30/18 Mode: Biostep Duration: 30 X 2.60 METs [...] comprehension. Krames: Living Well with Congestive Heart Failure book Date received: 04/22/18 Ta rget Goal(s) Aerobic- moderate intensity activity 30 to 60 minutes per day for at least 5 days per week Supplementing aerobic activity with an increase in daily lifestyle activities Resistance training at least two days per week COOP score: 25/40 Progression/Pro ne toward Goals Date: 04/22/18 Notes: He has been inactive. Nutr ition and Weight Assessment: Height: 5'10 " Admission Weight: 220# 30 Day W eight: 224 BMI: 31.6 60 Day Weight: 224# Discharge Weight: Weight Goal: Lose 1-2 # [...] Healthy Dietary Education Date: 08/03/18 -Referral to Cuff Slitter: Date: -DVD: Healthy Eating For Life Date: [...] Exercise BP: 110/60 60 Day Resting BP: 96/64 60 Day Exercise BP: 102/[address] Exercise BP: 90/60 Discharge BP: Discharge Exercise BP: Inte rventions [...] to lose weight b y limiting portions. Dyslipidemia History of Dyslipidemia: Yes [...] exercise until stable. Date: Range: -Referral to Tube Heater Date: Education Points listed below- Date Completed: [...] Discharge PHQ-9: Support systems: and family Notes: Inter vention and Education Points listed below- Date Completed:08/03/18 [...] PHQ, watch for signs of depression. Date: 09/30/18 Notes: Patient stated he's making progress and is able to do more on his own . Especially likes spending time with the grand kids. Patients stated Goals for Cardiac Rehab: To get into better shape and gain confidence after all that I've been through. Electronically signed by: Gael Woo, 09/30/2018 14:43 Patient Name: Bob Will/: 1955/ this enco [...] | | | | | | [place] [address] | | | | | | [phone] | | | | | | | | +--------+ + + + + | 12/16/ | Office | Cardiac | Randy Figueroa, | | | 2018 | Visit | Rehabilitation | MD [address] | | | | | | [place], | | | | | | [place] [address] | | | | | | [phone] | | | | | | | | +--------+ + + + + | 12/21/ | Office | Cardiac | Randy Figueroa, | | | 2018 | Visit | Rehabilitation | MD [address] | | | | | | [place], | | | | | | [place] [address] | | | | | | [phone] | | | | | | | | +--------+ + + + + | 12/23/ | Office | Cardiac | Randy Figueroa, | | | 2018 | Visit | Rehabilitation | MD [address] | | | | | | [place], | | | | | | [place] [address] | | | | | | [phone] | | | | | | | | +--------+ + + + + | 12/28/ | Office | Cardiac | Randy Figueroa, | | | 2018 | Visit | Rehabilitation | MD [address] | | | | | | [place], | | | | | | [place] [address] | | | | | | [phone] | | | | | | | | +--------+ + + + + | 12/30/ | Office | Cardiac | Randy Figueroa, | | | 2018 | Visit | Rehabilitation | MD [address] | | | | | | [place], | | | | | | [place] [address] | | | | | | [phone] | | | | | | | | +--------+ + + + + | 01/04/ | Office | Cardiac | Randy Figueroa, | | | 2018 | Visit | Rehabilitation | MD [address] | | | | | | [place], | | | | | | [place] [address] | | | | | | [phone] | | | | | | | | +--------+ + + + + | 01/06/ | Office | Cardiac | Randy Figueroa, | | | 2018 | Visit | Rehabilitation | MD [address] | | | | | | [place], | | | | | | [place] [address] | | | | | | [phone] | | | | | | | | +--------+ + + + + | 01/11/ | Office | Cardiac | Randy Figueroa, | | | 2018 | Visit | Rehabilitation | MD [address] | | | | | | [place], | | | | | | [place] [address] | | | | | | [phone] | | | | | | | | +--------+ + + + + | 03/24/ | Procedure | Cardiology | | | | 2018 | visit | | | | +--------+ + + + + | 03/24/ | Office | Cardiology | Jenny, | | | 2018 | Visit | | [address] [address] | | | | | | [place], | | | | | | [place] [address] | | | | | | [phone] | | | | | | | | +--------+ + + + + as of this encounter Visit Diagnoses + + | Diagnosis | + + | Coronary artery disease, angina presence unspecified, unspecified vessel or lesion | | type, unspecified whether wales or transplanted heart - Primary | + + | Post PTCA | + + | Postsurgical percutaneous transluminal coronary angioplasty status | + +
--- OUTSIDE RECORDS SUMMARY | ~2018-12-11 | XMS | Encounter Summary ---
Demographics + + + | Address | [address] | | | [place] [address] | + + + | Home Phone [...] | [place] | | | | | [address] | | + + + + + Care Team Providers + +------+ + | Care Chart Clerk Name | Role | Phone | [...] | | | involving | [address] [place] | | | | | [place] | [place] | [place] | | | | | coronary | [address] | [address] | | | | | artery of | Phone: | Phone: | | | | | [place] heart | [phone] | [phone] | | | | | without | Fax: | Fax: | | | | | angina | [phone] | [phone] | | | | | pectoris | | | + + + + + + + Encounter Details +--------+---------+ + + + | Date | Type | Department | Care Team | Description | +--------+---------+ + + + | 10/07/ | Office | [facility] | Carolina Lindarisa, | Coronary artery | | 2019 | Visit | MED CTR CARDIAC | MD [address] | disease, angina | | | | REHABILITATION [address] [place], | presence | | | | [address] [place] | [place] [address] | unspecified, | | | | [place] [address] | [phone] | unspecified vessel | | | | [phone] | | or lesion type, | | [...] note may be different from the origin njFletcher [facility] CARDIAC REHABILITATION [address] [place] [address] Cardiac Rehab 60 Day Review Date: 10/07/2018 [...] artery disease post rec ent anterior wall CO, post PTCA and stents of the left main, LAD and LCx on 03/15/17, cardiac shock, left atrial appendage thrombus, pneumonitis and septic shock, and severe in-stent chery nosis, CO in Sep 2017, episodes of VT and subsequent PTCA in Oct 2017, CHF, LVEF 35-40%, 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 He has recently increased [...] control. Also began walking with his around [place] 3 days a week along with chasing [...] Healthy Dietary Education Date: 08/03/18 -Referral to Pharmacognosy Teacher: Date: -DVD: Healthy Eating For Life [...] exercise until stable. Date: Range: -Referral to Construction Estimator Date: Education Points listed below- Date Completed: [...] Visit | Rehabilitation | MD [address] | | | | | | [place], | | | | | | [place] [address] | | | | | | [phone] | | | | | | | | +--------+ + + + + | 12/16/ | Office | Cardiac | Randy Figueroa, | | | 2018 | Visit | Rehabilitation | MD [address] | | | | | | [place], | | | | | | [place] [address] | | | | | | [phone] | | | | | | | | +--------+ + + + + | 12/21/ | Office | Cardiac | Randy Figeuroa, | | | 2018 | Visit | Rehabilitation | MD [address] | | | | | | [place], | | | | | | [place] [address] | | | | | | [phone] | | | | | | | | +--------+ + + + + | 12/23/ | Office | Cardiac | Randy Figueroa, | | | 2018 | Visit | Rehabilitation | MD [address] | | | | | | [place], | | | | | | [place] [address] | | | | | | [phone] | | | | | | | | +--------+ + + + + | 12/28/ | Office | Cardiac | Randy Figueroa, | | | 2018 | Visit | Rehabilitation | MD [address] | | | | | | [place], | | | | | | [place] [address] | | | | | | [phone] | | | | | | | | +--------+ + + + + | 12/30/ | Office | Cardiac | Randy Figueroa, | | | 2018 | Visit | Rehabilitation | MD [address] | | | | | | [place], | | | | | | [place] [address] | | | | | | [phone] | | | | | | | | +--------+ + + + + | 01/04/ | Office | Cardiac | Randy Figueroa, | | | 2018 | Visit | Rehabilitation | MD [address] | | | | | | [place], | | | | | | [place] [address] | | | | | | [phone] | | | | | | | | +--------+ + + + + | 01/06/ | Office | Cardiac | Randy Figueroa, | | | 2018 | Visit | Rehabilitation | MD [address] | | | | | | [place], | | | | | | [place] [address] | | | | | | [phone] | | | | | | | | +--------+ + + + + | 01/11/ | Office | Cardiac | Randy Figueroa, | | | 2018 | Visit | Rehabilitation | MD [address] | | | | | | [place], | | | | | | [place] [address] | | | | | | [phone] | | | | | | | | +--------+ + + + + | 03/24/ | Procedure | Cardiology | | | | 2018 | visit | | | | +--------+ + + + + | 03/24/ | Office | Cardiology | Jenny, | | | 2018 | Visit | | ADARSH Santo [address] | | | | | | [address], | | | | | | [place] [address] | | | | | | [phone] | | | | | | | [...]
--- OUTSIDE RECORDS SUMMARY | ~2018-12-11 | XMS | Encounter Summary ---
Demographics + + + | Address | [address] | | | [place] [address] | + + + | Home Phone [...] | [place] | | | | | [address] | | + + + + + Care Team Providers + +------+ + | Care Hand Deicer Element Winder Name | Role | Phone | + [...] | | | involving | [address] [place] | | | | | [place] | [place] | [place] | | | | | coronary | [address] | [address] | | | | | artery of | Phone: | Phone: | | | | | [place] heart | [phone] | [phone] | | | | | without | Fax: | Fax: | | | | | angina | [phone] | [phone] | | | | | pectoris | | | + + + + + + + Encounter Details +--------+---------+ + + + | Date | Type | Department | Care Team | Description | +--------+---------+ + + + | 09/14/ | Office | [facility] | Randy Figueroa, | Coronary artery | | 2019 | Visit | MED CTR CARDIAC | MD [address] | disease, angina | | | | REHABILITATION [address] | [address], | presence | | | | [address] [place] | [place] [address] | unspecified, | | | | [place] [address] | [phone] | unspecified vessel | | | | [phone] | | or lesion type, | | | | | | unspecified whether | | | | | | [place] or | | | | | | [...] may be different from the origin maFletcher [facility] CARDIAC REHABILITATION [address] [place] [address] Cardiac Rehab Date: 09/14/2018 Patient Information Patient Name: Bob Will Date of : 1955 Age: 62 y.o. Encounter Diagnoses Code Name Primary? I25.10 Coronary artery disease, angina presence unspecified, unspecified vessel or lesi on type, unspecified whether [place] or transplanted heart Yes Z98.61 Post PTCA [...] Visit | Rehabilitation | MD [address] | | | | | | [place], | | | | | | [place] [address] | | | | | | [phone] | | | | | | | | +--------+ + + + + | 12/16/ | Office | Cardiac | Randy Figueroa, | | | 2018 | Visit | Rehabilitation | MD [address] | | | | | | [place], | | | | | | [place] [address] | | | | | | [phone] | | | | | | | | +--------+ + + + + | 12/21/ | Office | Cardiac | Randy Figueroa, | | | 2018 | Visit | Rehabilitation | MD [address] | | | | | | [place], | | | | | | [place] [address] | | | | | | [phone] | | | | | | | | +--------+ + + + + | 12/23/ | Office | Cardiac | Randy Figueroa, | | | 2018 | Visit | Rehabilitation | MD [address] | | | | | | [place], | | | | | | [place] [address] | | | | | | [phone] | | | | | | | | +--------+ + + + + | 12/28/ | Office | Cardiac | Randy Figueroa, | | | 2018 | Visit | Rehabilitation | MD [address] | | | | | | [place], | | | | | | [place] [address] | | | | | | [phone] | | | | | | | | +--------+ + + + + | 12/30/ | Office | Cardiac | Randy Figueroa, | | | 2018 | Visit | Rehabilitation | MD [address] | | | | | | [place], | | | | | | [place] [address] | | | | | | [phone] | | | | | | | | +--------+ + + + + | 01/04/ | Office | Cardiac | Randy Figueroa, | | | 2018 | Visit | Rehabilitation | MD [address] | | | | | | [place], | | | | | | [place] [address] | | | | | | [phone] | | | | | | | | +--------+ + + + + | 01/06/ | Office | Cardiac | Randy Figueroa, | | | 2018 | Visit | Rehabilitation | [address] | | | | | | [place], | | | | | | [place] [address] | | | | | | [phone] | | | | | | | | +--------+ + + + + | 01/11/ | Office | Cardiac | Randy Figueroa, | | | 2018 | Visit | Rehabilitation | MD [address] | | | | | | [place], | | | | | | [place] [address] | | | | | | [phone] | | | | | | | [...] [place], | | | | | | [place] [address] | | | | | | [phone] | | | | | | | | +--------+ + + + + as of this encounter Visit Diagnoses + + | Diagnosis | + + | Coronary artery disease, angina presence unspecified, unspecified vessel or lesion | | type, unspecified whether [place] or transplanted heart - Primary | + + | Post PTCA | + + | Postsurgical percutaneous transluminal coronary angioplasty status | + +"
--- OUTSIDE RECORDS SUMMARY | ~2018-12-11 | XMS | Encounter Summary ---
Demographics + + + | Address | [address] | | | [place] [address] | + + + | Home Phone | | + + + | Preferred Language | Unknown | + + + | Marital Status | | + + + | Quaker Affiliation | Unknown | + + + | Race | Unknown | + + + | Ethnic Group | Unknown | + + + Author + + + | Author | [facility] | | | and [place] | + + + | Organization | [facility] | | | and [place] | + + + | Address | Unknown | + + + | Phone | Unavailable | + + + Support + + + + + | Name | Relationship | Address | Phone | + + + + + | [place] | [place] | [place] | | | | | [address] | | + + + + + Care Team Providers + +------+ + | Care Wellness Manager Name | Role | Phone | [...] | | | involving | [address] [place] | | | | | [place] | [place] | [place] | | | | | coronary | [address] | [address] | | | | | artery of | Phone: | Phone: | | | | | [place] heart | [phone] | [phone] | | | | | without | Fax: | Fax: | | | | | angina | [phone] | [phone] | | | | | pectoris | | | + + + + + + + Encounter Details +--------+---------+ + + + | Date | Type | Department | Care Team | Description | +--------+---------+ + + + | 09/30/ | Office | [facility] | Carolina Lindarisa, | Coronary artery | | 2019 | Visit | MED CTR CARDIAC | MD [address] | disease, angina | | | | REHABILITATION [address] [place], | presence | | | | [address] [place] | [place] [address] | unspecified, | | | | [place] [address] | [phone] | unspecified vessel | | | | [phone] | | or lesion type, | | | | | | unspecified whether | | | | | | [place] or | | | | | | [...] note may be different from the origin hiFletcher [facility] CARDIAC REHABILITATION [address] [place] [address] Cardiac Rehab 60 Day Review Date: 09/30/2018 Patient Information Patient Name: Bob Will Date of : 1955 Age: 62 y.o. Referring Provider: Randy Figueroa MD Encounter Diagnoses Code Name Primary? I25.10 Coronary artery disease, angina presence unspecified, unspecified vessel or lesi on type, unspecified whether [place] or transplanted heart Yes Z98.61 Post PTCA Cardiac Rehab Phase II Leon atment Plan Bob Will (Bob) is a 62 y.o. 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 Date: Range: -Referral to Hydraulic Miner Date: Education Points listed below- Date Completed: [...] | | | | | | [place] [address] | | | | | | [phone] | | | | | | | | +--------+ + + + + | 12/16/ | Office | Cardiac | Randy Figueroa, | | | 2018 | Visit | Rehabilitation | MD [address] | | | | | | [place], | | | | | | [place] [address] | | | | | | [phone] | | | | | | | | +--------+ + + + + | 12/21/ | Office | Cardiac | Randy Figueroa, | | | 2018 | Visit | Rehabilitation | MD [address] | | | | | | [place], | | | | | | [place] [address] | | | | | | [phone] | | | | | | | | +--------+ + + + + | 12/23/ | Office | Cardiac | Randy Figueroa, | | | 2018 | Visit | Rehabilitation | MD [address] | | | | | | [place], | | | | | | [place] [address] | | | | | | [phone] | | | | | | | | +--------+ + + + + | 12/28/ | Office | Cardiac | Randy Figueroa, | | | 2018 | Visit | Rehabilitation | MD [address] | | | | | | [place], | | | | | | [place] [address] | | | | | | [phone] | | | | | | | | +--------+ + + + + | 12/30/ | Office | Cardiac | Randy Figueroa, | | | 2018 | Visit | Rehabilitation | MD [address] | | | | | | [place], | | | | | | [place] [address] | | | | | | [phone] | | | | | | | | +--------+ + + + + | 01/04/ | Office | Cardiac | Randy Figueroa, | | | 2018 | Visit | Rehabilitation | MD [address] | | | | | | [place], | | | | | | [place] [address] | | | | | | [phone] | | | | | | | | +--------+ + + + + | 01/06/ | Office | Cardiac | Randy Figueroa, | | | 2018 | Visit | Rehabilitation | MD [address] | | | | | | [place], | | | | | | [place] [address] | | | | | | [phone] | | | | | | | | +--------+ + + + + | 01/11/ | Office | Cardiac | Randy Figueroa, | | | 2018 | Visit | Rehabilitation | MD [address] | | | | | | [place], | | | | | | [place] [address] | | | | | | [phone] | | | | | | | | +--------+ + + + + | 03/24/ | Procedure | Cardiology | | | | 2018 | visit | | | | +--------+ + + + + | 03/24/ | Office | Cardiology | Jenny, | | | 2018 | Visit | | [address]SH [address] | | | | | | [place], | | | | | | [place] [address] | | | | | | [phone] | | | | | | | | +--------+ + + + + as of this encounter Visit Diagnoses + + | Diagnosis | + + | Coronary artery disease, angina presence unspecified, unspecified vessel or lesion | | type, unspecified whether [place] or transplanted heart - Primary | + + | Post PTCA | + + | Postsurgical percutaneous transluminal coronary angioplasty status | + +
--- OUTSIDE RECORDS SUMMARY | ~2018-12-11 | XMS | Encounter Summary ---
Demographics + + + | Address | [address] | | | [place] [address] | + + + | Home Phone [...] [place] | | | | | [address] | | + + + + + Care Team Providers + +------+ + | Care Electronics Utility Worker Name | Role | Phone | + +------+ + | Young Haque DO | PCP | | + +------+ + Encounter Details +--------+ + + + + | Date | Type | Department | Care Team | Description | +--------+ + + + + | 03/19/ | Abstract | [facility] [place] | Jenny, | | | 2018 | | CARDIOLOGY [address] | [address] [employer] [employer] | | | | | [place], | [place], | | | | | [place] [address] | [place] [address] | | | | | [phone] | [phone] | | | | | | | [...] Visit | Rehabilitation | MD [address] [place] | | | | | | [place], | | | | | | [place] [address] | | | | | | [phone] | | | | | | | | +--------+ + + + + | 12/16/ | Office | Cardiac | Randy Figueroa, | | | 2018 | Visit | Rehabilitation | MD [address] [place] | | | | | | [place], | | | | | | [place] [address] | | | | | | [phone] | | | | | | | | +--------+ + + + + | 12/21/ | Office | Cardiac | Randy Figueroa, | | | 2018 | Visit | Rehabilitation | MD [address] [place] | | | | | | [place], | | | | | | [place] [address] | | | | | | [phone] | | | | | | | | +--------+ + + + + | 12/23/ | Office | Cardiac | Randy Figueroa, | | | 2018 | Visit | Rehabilitation | MD [address] [place] | | | | | | [place], | | | | | | [place] [address] | | | | | | [phone] | | | | | | | | +--------+ + + + + | 12/28/ | Office | Cardiac | Randy Figueroa, | | | 2018 | Visit | Rehabilitation | MD [address] [place] | | | | | | [place], | | | | | | [place] [address] | | | | | | [phone] | | | | | | | | +--------+ + + + + | 12/30/ | Office | Cardiac | Randy Figueroa, | | | 2018 | Visit | Rehabilitation | MD [address] [place] | | | | | | [place], | | | | | | [place] [address] | | | | | | [phone] | | | | | | | | +--------+ + + + + | 01/04/ | Office | Cardiac | Randy Figueroa, | | | 2018 | Visit | Rehabilitation | MD [address] | | | | | | [place], | | | | | | [place] [address] | | | | | | [phone] | | | | | | | | +--------+ + + + + | 01/06/ | Office | Cardiac | Randy Figueroa, | | | 2018 | Visit | Rehabilitation | [address] [place] | | | | | | [place], | | | | | | [place] [address] | | | | | | [phone] | | | | | | | | +--------+ + + + + | 01/11/ | Office | Cardiac | Randy Figueroa, | | | 2018 | Visit | Rehabilitation | [address] | | | | | | [place], | | | | | | [place] [address] | | | | | | [phone] | | | | | | | | +--------+ + + + + | 03/24/ | Procedure | Cardiology | | | | 2018 | visit | | | | +--------+ + + + + | 03/24/ | Office | Cardiology | Jenny, | | | 2018 | Visit | | ADARSH Santo [address] | | | | | | [place], | | | | | | [place] [address] | | | | | | [phone] | | | | | | | [...]
--- OUTSIDE RECORDS SUMMARY | ~2018-12-11 | XMS | Encounter Summary ---
Demographics + + + | Address | [address] | | | [place] [address] | + + + | Home Phone [...] | [place] | | | | | [address] | | + + + + + Care Team Providers + +------+ + | Care Credit Card Clerk Name | Role | Phone | [...] | | | involving | [address] [place] [place] | | | | | council | [place] | [place] | | | | | coronary | [address] | [address] | | | | | artery of | Phone: | Phone: | | | | | council heart | [phone] | [phone] | | | | | without | Fax: | Fax: | | | | | angina | [phone] | [phone] | | | | | pectoris | | | + + + + + + + Encounter Details +--------+---------+ + + + | Date | Type | Department | Care Team | Description | +--------+---------+ + + + | 09/28/ | Office | [facility] | Randy Figueroa, | Coronary artery | | 2019 | Visit | MED CTR CARDIAC | MD [address] | disease, angina | | | | REHABILITATION [address] [place], | presence | | | | [address] [place] | [place] [address] | unspecified, | | | | [place] [address] | [phone] | unspecified vessel | | | | [phone] | | or lesion type, | | | | | | unspecified whether | | | | | | council or | | | | | | [...] may be different from the origin kyFletcher [facility] CARDIAC REHABILITATION [address] [place] [address] Cardiac Rehab Date: 09/28/2018 Patient Information Patient Name: Bob Will Date of : 1955 Age: 62 y.o. Encounter Diagnoses Code Name Primary? I25.10 Coronary artery disease, angina presence unspecified, unspecified vessel or lesi on type, unspecified whether council or transplanted heart Yes Z98.61 Post PTCA [...] Visit | Rehabilitation | MD [address] [place] | | | | | | [place], | | | | | | [place] [address] | | | | | | [phone] | | | | | | | | +--------+ + + + + | 12/16/ | Office | Cardiac | Randy Figueroa, | | | 2018 | Visit | Rehabilitation | MD [address] [place] | | | | | | [place], | | | | | | [place] [address] | | | | | | [phone] | | | | | | | | +--------+ + + + + | 12/21/ | Office | Cardiac | Randy Figueroa, | | | 2018 | Visit | Rehabilitation | MD [address] [place] | | | | | | [place], | | | | | | [place] [address] | | | | | | [phone] | | | | | | | | +--------+ + + + + | 12/23/ | Office | Cardiac | Randy Figueroa, | | | 2018 | Visit | Rehabilitation | MD [address] | | | | | | [place], | | | | | | [place] [address] | | | | | | [phone] | | | | | | | | +--------+ + + + + | 12/28/ | Office | Cardiac | Randy Figueroa, | | | 2018 | Visit | Rehabilitation | MD [address] | | | | | | [place], | | | | | | [place] [address] | | | | | | [phone] | | | | | | | | +--------+ + + + + | 12/30/ | Office | Cardiac | Randy Figueroa, | | | 2018 | Visit | Rehabilitation | MD [address] | | | | | | [place], | | | | | | [place] [address] | | | | | | [phone] | | | | | | | | +--------+ + + + + | 01/04/ | Office | Cardiac | Randy Figueroa, | | | 2018 | Visit | Rehabilitation | MD [address] | | | | | | [place], | | | | | | [place] [address] | | | | | | [phone] | | | | | | | | +--------+ + + + + | 01/06/ | Office | Cardiac | Randy Figueroa, | | | 2018 | Visit | Rehabilitation | [address] | | | | | | [place], | | | | | | [place] [address] | | | | | | [phone] | | | | | | | | +--------+ + + + + | 01/11/ | Office | Cardiac | Randy Figueroa, | | | 2018 | Visit | Rehabilitation | MD [address] | | | | | | [place], | | | | | | [place] [address] | | | | | | [phone] | | | | | | | | +--------+ + + + + | 03/24/ | Procedure | Cardiology | | | | 2018 | visit | | | | +--------+ + + + + | 03/24/ | Office | Cardiology | Jenny, | | | 2018 | Visit | | ADARSH Santo [address] | | | | | | [place], | | | | | | [place] [address] | | | | | | [phone] | | | | | | | | +--------+ + + + + as of this encounter Visit Diagnoses + + | Diagnosis | + + | Coronary artery disease, angina presence unspecified, unspecified vessel or lesion | | type, unspecified whether council or transplanted heart - Primary | + + | Post PTCA | + + | Postsurgical percutaneous transluminal coronary angioplasty status | + +"
--- OUTSIDE RECORDS SUMMARY | ~2018-12-11 | XMS | Encounter Summary ---
Demographics + + + | Address | [address] | | | [place] [address] | + + + | Home Phone [...] [place] | | | | | [address] | | + + + + + Care Team Providers + +------+ + | Care Insole Rounder Name | Role | Phone | + [...] [address] | | | | | [place], | [place], | | | | | [place] [address] | [place] [address] | | | | | [phone] | [phone] | | | | | | | [...] | | | | | | [place] [address] | | | | | | [phone] | | | | | | | | +--------+ + + + + | 12/16/ | Office | Cardiac | Randy Figueroa, | | | 2018 | Visit | Rehabilitation | MD [address] | | | | | | [place], | | | | | | [place] [address] | | | | | | [phone] | | | | | | | | +--------+ + + + + | 12/21/ | Office | Cardiac | Randy Figueroa, | | | 2018 | Visit | Rehabilitation | MD [address] | | | | | | [place], | | | | | | [place] [address] | | | | | | [phone] | | | | | | | | +--------+ + + + + | 12/23/ | Office | Cardiac | Randy Figueroa, | | | 2018 | Visit | Rehabilitation | MD [address] [place] | | | | | | [place], | | | | | | [place] [address] | | | | | | [phone] | | | | | | | | +--------+ + + + + | 12/28/ | Office | Cardiac | Randy Figueroa, | | | 2018 | Visit | Rehabilitation | MD [address] [place] | | | | | | [place], | | | | | | [place] [address] | | | | | | [phone] | | | | | | | | +--------+ + + + + | 12/30/ | Office | Cardiac | Randy Figueroa, | | | 2018 | Visit | Rehabilitation | MD [address] [place] | | | | | | [place], | | | | | | [place] [address] | | | | | | [phone] | | | | | | | | +--------+ + + + + | 01/04/ | Office | Cardiac | Randy Figueroa, | | | 2018 | Visit | Rehabilitation | MD [address] | | | | | | [place], | | | | | | [place] [address] | | | | | | [phone] | | | | | | | | +--------+ + + + + | 01/06/ | Office | Cardiac | Randy Figueroa, | | | 2018 | Visit | Rehabilitation | MD [address] | | | | | | [place], | | | | | | [place] [address] | | | | | | [phone] | | | | | | | | +--------+ + + + + | 01/11/ | Office | Cardiac | Randy Figueroa, | | | 2018 | Visit | Rehabilitation | MD [address] [place] | | | | | | [place], | | | | | | [place] [address] | | | | | | [phone] | | | | | | | [...] | | | | | | [place] [address] | | | | | | [phone] | | | | | | | | +--------+ + + + + as of this encounter Visit Diagnoses Not on filein this encounter"
--- OUTSIDE RECORDS SUMMARY | ~2018-12-11 | XMS | Encounter Summary ---
Demographics + + + | Address | [address] | | | [place] [address] | + + + | Home Phone [...] [place] | | | | | [address] | | + + + + + Care Team Providers + +------+ + | Care Serging Machine Operator Name | Role | Phone | + +------+ + | Young Haque DO | PCP | | + +------+ + Encounter Details +--------+ + + + + | Date | Type | Department | Care Team | Description | +--------+ + + + + | 03/28/ | Abstract | [facility] [place] | Jenny, | | | 2019 | | CARDIOLOGY [address] | Hansa FLOOR COVERER [address] | | | | | [place], | [place], | | | | | [place] [address] | [place] [address] | | | | | [phone] | [phone] | | | | | | | [...] Visit | Rehabilitation | MD [address] [place] | | | | | | [place], | | | | | | [place] [address] | | | | | | [phone] | | | | | | | | +--------+ + + + + | 12/16/ | Office | Cardiac | Randy Figueroa, | | | 2018 | Visit | Rehabilitation | MD [address] [place] | | | | | | [place], | | | | | | [place] [address] | | | | | | [phone] | | | | | | | | +--------+ + + + + | 12/21/ | Office | Cardiac | Randy Figueroa, | | | 2018 | Visit | Rehabilitation | MD [address] [place] | | | | | | [place], | | | | | | [place] [address] | | | | | | [phone] | | | | | | | | +--------+ + + + + | 12/23/ | Office | Cardiac | Randy Figueroa, | | | 2018 | Visit | Rehabilitation | MD [address] [place] | | | | | | [place], | | | | | | [place] [address] | | | | | | [phone] | | | | | | | | +--------+ + + + + | 12/28/ | Office | Cardiac | Randy Figueroa, | | | 2018 | Visit | Rehabilitation | MD [address] [place] | | | | | | [place], | | | | | | [place] [address] | | | | | | [phone] | | | | | | | | +--------+ + + + + | 12/30/ | Office | Cardiac | Randy Figueroa, | | | 2018 | Visit | Rehabilitation | MD [address] [place] | | | | | | [place], | | | | | | [place] [address] | | | | | | [phone] | | | | | | | | +--------+ + + + + | 01/04/ | Office | Cardiac | Randy Figueroa, | | | 2018 | Visit | Rehabilitation | MD [address] | | | | | | [place], | | | | | | [place] [address] | | | | | | [phone] | | | | | | | | +--------+ + + + + | 01/06/ | Office | Cardiac | Randy Figueroa, | | | 2018 | Visit | Rehabilitation | [address] [place] | | | | | | [place], | | | | | | [place] [address] | | | | | | [phone] | | | | | | | | +--------+ + + + + | 01/11/ | Office | Cardiac | Randy Figueroa, | | | 2018 | Visit | Rehabilitation | [address] | | | | | | [place], | | | | | | [place] [address] | | | | | | [phone] | | | | | | | | +--------+ + + + + | 03/24/ | Procedure | Cardiology | | | | 2018 | visit | | | | +--------+ + + + + | 03/24/ | Office | Cardiology | Jenny, | | | 2018 | Visit | | ADARSH Santo [address] | | | | | | [place], | | | | | | [place] [address] | | | | | | [phone] | | | | | | | [...]
--- OUTSIDE RECORDS SUMMARY | ~2018-12-11 | XMS | Clinical Summary ---
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 Patient was difficult intubation at outside cathode maker. | | -secretions improving, cough strong -s/p [...] stayExtubated 03/22, started on | | NC P0Jhvdi infusion begun 03/22 for daily goal -1 [...] during cath | | lab procedure at [facility]. Was shocked 17 times | [...] | | | INC | | | [id number] | | Tejal Pettit MD | | | | | | X / | | | | | | | | /[address] | | | | | | | | [address] | + +------+--------+ +--------+--------+--------+ Results Not on [...] | PPO | [phone] | [address] [address] [place] | | | CROSS | | | [address] | [place] [address] | | | [place]ERA | | | | | | | L | | | | | + +--------+ +--------+ + + | MEDICAID [place] | OHP | xxxxxxxx | Medica | [phone] | [address] [address] | | | PLUS | | id | [phone] | [place] [address] | | | OPEN | | | [...] | Self [birth year] | Home: | [address] | | | al/Fam | | 1956 | [phone] | [address] [place] | | | taiwo | | | [phone] | [phone] | + +--------+ +--------+ + +
--- OUTSIDE RECORDS SUMMARY | ~2018-12-11 | XMS | Encounter Summary ---
Demographics + + + | Address | [address] [place] [address] [address] | | | [place] [address] | + + + | Home Phone | | + + + | Preferred Language | Unknown | + + + | Marital Status | | + + + | Restorationist Affiliation | Unknown | + + + | Race | Unknown | + + + | Ethnic Group | Unknown | + + + Author + + + | Author | Cassandra [facility] | + + + | Organization | [facility] | + + + | Address | Unknown | + + + | Phone | Unavailable | + + + Support + + +---------+ + | Name | Relationship | Address | Phone | + + +---------+ + | Venice Mckeon | ECON | Unknown | | + + +---------+ + Care Team Providers + +------+ + | Care Fiber Technologist Name | Role | Phone | [...] HF chronicity, | | | | | [id number] | unspecified heart | | | | [...] RON MCKEON Date of : 1955 | [facility] | | Performing Physician: Rocio | RADIOLOGY | | [facility] | | | | | [...] MV A Rohan: 0.86 m/s MV Dec [place]: 3.26 m/s2 | | | MV DecT: [...] | 21.47 mmHg TR Vmax: 2.31 m/s Sdv Pilot/Navigator/Dds Operator: ANJANA Authenticated | | | by: Rocio [facility] Report Date/Time: 11-04-2018 19:16:25 | | + + + + + | Procedure Note | + + | Sebastian, Rad Results In - 11/04/2018 7:20 PM PST Patient Name: Belkys MCKEON of | | : 5Accession: [id number] Physician: Rocio | | [facility] INDICATIONS------ | | -----CHFCONCLUSIONS 1. [...] | 5.92 cmLVPWd: 1.01 cmLVOT Area: 3.17 cc6XPAK Diam: 2.01 cm%FS: 15.56 %EF(Teich): | | [...] mlLAESV Index (A-L): 42.88 ml/m2LAAs A2C: 24.92 ec1DNDTB A-L | | A2C: 95.08 mlLALs A2C: 5.54 cmLAAs A4C: 19.37 cv5IQFEU A-L A4C: 70.66 mlLALs | | A4C: 4.50 cmRAAs: 18.79 bq2LNULT A-L: 67.38 mlRAESV MOD: 63.17 mlRALs: 4.44 | | cmTAPSE: 2.12 cmAV maxP.82 mmHgAV meanP.56 mmHgAV Vmax: 1.30 m/Emil | | Vmean: 0.88 m/Emil VTI: 25.33 cmAVA Vmax: 2.55 cm2AVA (VTI): 2.49 uw6NIEL (Vmax): | | 0.00 cm2/m2AVAI (VTI): 0.00 cm2/m2LVOT maxP.40 mmHgLVOT meanP.91 | | mmHgLVSI Dopp: 29.85 ml/m2LVSV Dopp: 63.29 mlLVOT Vmax: 1.04 m/sLVOT Vmean: 0.64 | | m/sLVOT VTI: 19.92 cmMV A Rohan: 0.86 m/sMV Dec [place]: 3.26 m/s2MV DecT: 218.32 | | msMV E Rohan: 0.71 m/sMV E/A Ratio: 0.82 MV PHT: 63.31 msMVA By PHT: 3.47 | | da6Kwwuau e': 0.04 m/sSeptal E/e': 15.51 Lateral e': 0.06 m/sLateral E/e': 10.91 | | RAP: 5 mmHgRVSP: 26.47 mmHgTR maxP.47 mmHgTR Vmax: 2.31 m/sSonographer: | | DBSAuthenticated by: Mershed [facility] CenterReport Date/Time: 11-04-2018 19:16:25IMPRESSION:1. | | [...] A Rohan: 0.86 m/s | |MV Dec [place]: 3.26 m/s2 | |MV DecT: 218.32 ms [...] |TR Vmax: 2.31 m/s | | | |Sdv Pilot/Navigator/Dds Operator: DBS | |Authenticated by: Rocio Pearl [...] + | [facility] | [address] | [place] [address] | | + + + + + in this encounter Visit Diagnoses + + | Diagnosis | + + | Congestive heart failure, unspecified HF chronicity, unspecified heart failure type | | (HCC) | + +"
--- OUTSIDE RECORDS SUMMARY | ~2018-12-11 | XMS | Encounter Summary ---
Demographics + + + | Address | [address] | | | [place] [address] | + + + | Home Phone [...] [place] | | | | | [address] | | + + + + + Care Team Providers + +------+ + | Care Benefits Representative Name | Role | Phone | [...] Monitor | CARDIOLOGY [address] | [address] | Interrogation | | | | [place], | [place], | (Primary Dx); [place] | | | | [place] [address] | [place] [address] | (AICD) [employer] | | | | [phone] | [phone] | 10/16/17 [facility] [place]; | | | [...] | | | | | | [place] [address] | | | | | | [phone] | | | | | | | | +--------+ + + + + | 12/16/ | Office | Cardiac | Randy Figueroa, | | | 2018 | Visit | Rehabilitation | MD [address] | | | | | | [place], | | | | | | [place] [address] | | | | | | [phone] | | | | | | | | +--------+ + + + + | 12/21/ | Office | Cardiac | Randy Figueroa, | | | 2018 | Visit | Rehabilitation | MD [address] | | | | | | [place], | | | | | | [place] [address] | | | | | | [phone] | | | | | | | | +--------+ + + + + | 12/23/ | Office | Cardiac | Randy Figueroa, | | | 2018 | Visit | Rehabilitation | MD [address] | | | | | | [place], | | | | | | [place] [address] | | | | | | [phone] | | | | | | | | +--------+ + + + + | 12/28/ | Office | Cardiac | Randy Figueroa, | | | 2018 | Visit | Rehabilitation | MD [address] | | | | | | [place], | | | | | | [place] [address] | | | | | | [phone] | | | | | | | | +--------+ + + + + | 12/30/ | Office | Cardiac | Randy Figueroa, | | 2018 | Visit | Rehabilitation | MD [address] | | | | | | [place], | | | | | | [place] [address] | | | | | | [phone] | | | | | | | | +--------+ + + + + | 01/04/ | Office | Cardiac | Randy Figueroa, | | | 2018 | Visit | Rehabilitation | MD [address] | | | | | | [place], | | | | | | [place] [address] | | | | | | [phone] | | | | | | | | +--------+ + + + + | 01/06/ | Office | Cardiac | Randy Figueroa, | | | 2018 | Visit | Rehabilitation | MD [address] | | | | | | [place], | | | | | | [place] [address] | | | | | | [phone] | | | | | | | | +--------+ + + + + | 01/11/ | Office | Cardiac | Randy Figueroa, | | | 2018 | Visit | Rehabilitation | MD [address] | | | | | | [place], | | | | | | [place] [address] | | | | | | [phone] | | | | | | | | +--------+ + + + + | 03/24/ | Procedure | Cardiology | | | | 2018 | visit | | | | +--------+ + + + + | 03/24/ | Office | Cardiology | Jenny, | | | 2018 | Visit | | ADARSH Santo [address] | | | | | | [place], | | | | | | [place] [address] | | | | | | [phone] | | | | | | | [...] | e | 2359 PDT | Interrogation DOUGHMAKER-D | procedure are in the | | REMOTE | | | ([facility]) [employer] | results section. | | [...] + | Performing | Address | City/State/[facility] Psych[facility] Centercode | Phone Number | | Organization | | | | + +---------+ + + | [facility] | | | | + +---------+ + + in this encounter Visit Diagnoses + + | Diagnosis | + + | Remote Device Interrogation - Primary | + + | Fitting and adjustment of automatic implantable cardiac defibrillator | + + | DOUGHMAKER-D (GABBI) [employer] 10/16/17 EULOGIO Darby | + + | Ischemic cardiomyopathy | + + | Other specified forms of chronic ischemic heart disease | + +"
--- OUTSIDE RECORDS SUMMARY | ~2018-12-11 | XMS | Encounter Summary ---
Demographics + + + | Address | [address] | | | [place] [address] | + + + | Home Phone [...] [place] | | | | | [address] | | + + + + + Care Team Providers + +------+ + | Care Edge Inker Name | Role | Phone | + [...] | | | | | | [place] [address] | | | | | | [phone] | | | +--------+ + + + [...] | | | | | | [place] [address] | | | | | | [phone] | | | | | | | | +--------+ + + + + | 12/16/ | Office | Cardiac | Randy Figueroa, | | | 2018 | Visit | Rehabilitation | MD [address] | | | | | | [place], | | | | | | [place] [address] | | | | | | [phone] | | | | | | | | +--------+ + + + + | 12/21/ | Office | Cardiac | Randy Figueroa, | | | 2018 | Visit | Rehabilitation | MD [address] | | | | | | [place], | | | | | | [place] [address] | | | | | | [phone] | | | | | | | | +--------+ + + + + | 12/23/ | Office | Cardiac | Randy Figueroa, | | 2018 | Visit | Rehabilitation | MD [address] | | | | | | [place], | | | | | | [place] [address] | | | | | | [phone] | | | | | | | | +--------+ + + + + | 12/28/ | Office | Cardiac | Randy Figueroa, | | | 2018 | Visit | Rehabilitation | MD [address] | | | | | | [place], | | | | | | [place] [address] | | | | | | [phone] | | | | | | | | +--------+ + + + + | 12/30/ | Office | Cardiac | Randy Figueroa, | | | 2018 | Visit | Rehabilitation | MD [address] | | | | | | [place], | | | | | | [place] [address] | | | | | | [phone] | | | | | | | | +--------+ + + + + | 01/04/ | Office | Cardiac | Randy Figueroa, | | | 2018 | Visit | Rehabilitation | MD [address] | | | | | | [place], | | | | | | [place] [address] | | | | | | [phone] | | | | | | | | +--------+ + + + + | 01/06/ | Office | Cardiac | Randy Figueroa, | | | 2018 | Visit | Rehabilitation | MD [address] | | | | | | [place], | | | | | | [place] [address] | | | | | | [phone] | | | | | | | | +--------+ + + + + | 01/11/ | Office | Cardiac | Randy Figueroa, | | | 2018 | Visit | Rehabilitation | [address] | | | | | | [place], | | | | | | [place] [address] | | | | | | [phone] | | | | | | | [...] | | | | | | [place] [address] | | | | | | [phone] | | | | | | | | +--------+ + + + + as of this encounter Visit Diagnoses Not on filein this encounter"
--- OUTSIDE RECORDS SUMMARY | ~2018-12-11 | XMS | Encounter Summary ---
Demographics + + + | Address | [address] [place] [address] [address] | | | [place] [address] | + + + | Home Phone | | + + + | Preferred Language | Unknown | + + + | Marital Status | | + + + | Anabaptism Affiliation | Unknown | + + + | Race | Unknown | + + + | Ethnic Group | Unknown | + + + Author + + + | Author | [facility]andra [facility] | + + + | Organization | [facility] | + + + | Address | Unknown | + + + | Phone | Unavailable | + + + Support + + +---------+ + | Name | Relationship | Address | Phone | + + +---------+ + | Venice Mckeon | ECON | Unknown | | + + +---------+ + Care Team Providers + +------+ + | Care Research And Development Chemist Name | Role | Phone | + [...] HF chronicity, | | | | | [id number] | unspecified heart | | | | [...] RON MCKEON Date of : 1955 | [facility] | | Performing Physician: Rocio | RADIOLOGY | | [place] | | | | | | INDICATIONS [...] MV A Rohan: 0.86 m/s MV Dec [place]: 3.26 m/s2 | | | MV DecT: [...] | 21.47 mmHg TR Vmax: 2.31 m/s Research Kennel Supervisor: ANJANA Authenticated | | | by: Rocio Pearl Report Date/Time: 11-04-2018 19:16:25 | | + + + + + | Procedure Note | + + | Sebastian, Rad Results In - 11/04/2018 7:20 PM PST Patient Name: Belkys MCKEON of | | : 5Accession: [id number] Physician: Rocio | | [place] INDICATIONS------ | [...] | 5.92 cmLVPWd: 1.01 cmLVOT Area: 3.17 uw5QPUT Diam: 2.01 cm%FS: 15.56 %EF(Teich): | | [...] mlLAESV Index (A-L): 42.88 ml/m2LAAs A2C: 24.92 vb5SECAI A-L | | A2C: 95.08 mlLALs A2C: 5.54 cmLAAs A4C: 19.37 tb7UVZHW A-L A4C: 70.66 mlLALs | | A4C: 4.50 cmRAAs: 18.79 zl4XVIYS A-L: 67.38 mlRAESV MOD: 63.17 mlRALs: 4.44 | | cmTAPSE: 2.12 cmAV maxP.82 mmHgAV meanP.56 mmHgAV Vmax: 1.30 m/Emil | | Vmean: 0.88 m/Emil VTI: 25.33 cmAVA Vmax: 2.55 cm2AVA (VTI): 2.49 le3DOGU (Vmax): | | 0.00 cm2/m2AVAI (VTI): 0.00 cm2/m2LVOT maxP.40 mmHgLVOT meanP.91 | | mmHgLVSI Dopp: 29.85 ml/m2LVSV Dopp: 63.29 mlLVOT Vmax: 1.04 m/sLVOT Vmean: 0.64 | | m/sLVOT VTI: 19.92 cmMV A Rohan: 0.86 m/sMV Dec [place]: 3.26 m/s2MV DecT: 218.32 | | msMV E Rohan: 0.71 m/sMV E/A Ratio: 0.82 MV PHT: 63.31 msMVA By PHT: 3.47 | | bk4Vpcaex e': 0.04 m/sSeptal E/e': 15.51 Lateral e': 0.06 m/sLateral E/e': 10.91 | | RAP: 5 mmHgRVSP: 26.47 mmHgTR maxP.47 mmHgTR Vmax: 2.31 m/sSonographer: | | DBSAuthenticated by: Rocio AlsjonestownraReport Date/Time: 11-04-2018 19:16:25IMPRESSION:1. | | This was [...] A Rohan: 0.86 m/s | |MV Dec [place]: 3.26 m/s2 | |MV DecT: 218.32 ms [...] |TR Vmax: 2.31 m/s | | | |Research Kennel Supervisor: ANJANA | |Authenticated by: Rocio Licoeloy | [...] | [address] | [place] [address] | | + + + + + in this encounter Visit Diagnoses + + | Diagnosis | + + | Congestive heart failure, unspecified HF chronicity, unspecified heart failure type | | (HCC) | + +"
--- OUTSIDE RECORDS SUMMARY | ~2018-12-11 | XMS | Encounter Summary ---
Demographics + + + | Address | [address] | | | [place] [address] | + + + | Home Phone [...] | [place] | | | | | [address] | | + + + + + Care Team Providers + +------+ + | Care Plumbing And Heating Mechanic Name | Role | Phone [...] | Cardiac | Diagnoses | Kacie, | aKrlee Cardiac | | | Services | Rehabilitatio | Coronary | Janel | | | | Required | n | artery | ADARSH Jacobs | Rehabilitatio | | | | | disease | [address] | [address] | | | | | involving | [address] [place] | | | | | [place] | [place] | [place] | | | | | coronary | [address] | [address] | | | | | artery of | Phone: | Phone: | | | | | upper [place] heart | [phone] | [phone] | | | | | without | Fax: | Fax: | | | | | angina | [phone] | [phone] | | | | | pectoris | | | + + + + + + + Encounter Details +--------+---------+ + + + | Date | Type | Department | Care Team | Description | +--------+---------+ + + + | 10/07/ | Office | [facility] | Carolina Lindarisa, | Coronary artery | | 2019 | Visit | [facility] CARDIAC | MD [address] [place] | disease, angina | | | | REHABILITATION [address] [place], | presence | | | | [address] [place] | [place] [address] | unspecified, | | | | [place] [address] | [phone] | unspecified vessel | | | | [phone] | | or lesion type, | | [...] note may be different from the origin [facility] [address] [place] [address] Cardiac Rehab 60 Day Review Date: 10/07/2018 Patient Information Patient Name: Bob Will Date of : 1955 Age: 62 y.o. Referring Provider: Randy Figueroa MD Encounter Diagnoses Code Name Primary? 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 Also began walking with his around [employer] 3 days a week along with chasing [...] Healthy Dietary Education Date: 08/03/18 -Referral to Concrete Wall Grinder Operator: Date: -DVD: Healthy Eating For Life [...] exercise until stable. Date: Range: -Referral to Bench Mechanic Date: Education Points listed below- Date [...] Visit | Rehabilitation | MD [address] [place] | | | | | | [place], | | | | | | [place] [address] | | | | | | [phone] | | | | | | | | +--------+ + + + + | 12/16/ | Office | Cardiac | Randy Figueroa, | | | 2018 | Visit | Rehabilitation | MD [address] [place] | | | | | | [place], | | | | | | [place] [address] | | | | | | [phone] | | | | | | | | +--------+ + + + + | 12/21/ | Office | Cardiac | Randy Figueroa, | | | 2018 | Visit | Rehabilitation | MD [address] [place] | | | | | | [place], | | | | | | [place] [address] | | | | | | [phone] | | | | | | | | +--------+ + + + + | 12/23/ | Office | Cardiac | Randy Figueroa, | | | 2018 | Visit | Rehabilitation | MD [address] | | | | | | [place], | | | | | | [place] [address] | | | | | | [phone] | | | | | | | | +--------+ + + + + | 12/28/ | Office | Cardiac | Randy Figueroa, | | | 2018 | Visit | Rehabilitation | MD [address] [place] | | | | | | [place], | | | | | | [place] [address] | | | | | | [phone] | | | | | | | | +--------+ + + + + | 12/30/ | Office | Cardiac | Randy Figueroa, | | | 2018 | Visit | Rehabilitation | MD [address] [place] | | | | | | [place], | | | | | | [place] [address] | | | | | | [phone] | | | | | | | | +--------+ + + + + | 01/04/ | Office | Cardiac | Randy Figueroa, | | | 2018 | Visit | Rehabilitation | MD [address] | | | | | | [place], | | | | | | [place] [address] | | | | | | [phone] | | | | | | | | +--------+ + + + + | 01/06/ | Office | Cardiac | Randy Figueroa, | | | 2018 | Visit | Rehabilitation | MD [address] [place] | | | | | | [place], | | | | | | [place] [address] | | | | | | [phone] | | | | | | | | +--------+ + + + + | 01/11/ | Office | Cardiac | Randy Figueroa, | | | 2018 | Visit | Rehabilitation | MD [address] [place] | | | | | | [place], | | | | | | [place] [address] | | | | | | [phone] | | | | | | | | +--------+ + + + + | 03/24/ | Procedure | Cardiology | | | | 2018 | visit | | | | +--------+ + + + + | 03/24/ | Office | Cardiology | Jenny, | | | 2018 | Visit | | ADARSH Santo [address] | | | | | | [place], | | | | | | [place] [address] | | | | | | [phone] | | | | | | | | +--------+ + + + + as of this encounter Visit Diagnoses + + | Diagnosis | + + | Coronary artery disease, angina presence unspecified, unspecified vessel or lesion | | type, unspecified whether upper [place] or transplanted heart - Primary | + + | Post PTCA | + + | Postsurgical percutaneous transluminal coronary angioplasty status | + +
--- OUTSIDE RECORDS SUMMARY | ~2018-12-11 | XMS | Encounter Summary ---
Demographics + + + | Address | [address] | | | [place] [address] | + + + | Home Phone [...] [place] | | | | | [address] | | + + + + + Care Team Providers + +------+ + | Care Arborist Representative Name | Role | Phone | [...] Monitor | CARDIOLOGY [address] | [address] | Interrogation | | | | [place], | [place], | (Primary Dx); [place] | | | | [place] [address] | [place] [address] | (AICD) [employer] | | | | [phone] | [phone] | 10/16/17 [facility] [place]; | | | | [...] | | | | | | [place] [address] | | | | | | [phone] | | | | | | | | +--------+ + + + + | 12/16/ | Office | Cardiac | Randy Figueroa, | | | 2018 | Visit | Rehabilitation | MD Javid Crespo | | | | | | [place], | | | | | | [place] [address] | | | | | | [phone] | | | | | | | | +--------+ + + + + | 12/21/ | Office | Cardiac | Randy Figueroa, | | | 2018 | Visit | Rehabilitation | MD Javid Crespo | | | | | | [place], | | | | | | [place] [address] | | | | | | [phone] | | | | | | | | +--------+ + + + + | 12/23/ | Office | Cardiac | Randy Figueroa, | | | 2018 | Visit | Rehabilitation | MD [address] | | | | | | [place], | | | | | | [place] [address] | | | | | | [phone] | | | | | | | | +--------+ + + + + | 12/28/ | Office | Cardiac | Randy Figueroa, | | | 2018 | Visit | Rehabilitation | MD [address] | | | | | | [place], | | | | | | [place] [address] | | | | | | [phone] | | | | | | | | +--------+ + + + + | 12/30/ | Office | Cardiac | Randy Figueroa, | | 2018 | Visit | Rehabilitation | MD [address] | | | | | | [place], | | | | | | [place] [address] | | | | | | [phone] | | | | | | | | +--------+ + + + + | 01/04/ | Office | Cardiac | Randy Figueroa, | | | 2018 | Visit | Rehabilitation | MD [address] | | | | | | [place], | | | | | | [place] [address] | | | | | | [phone] | | | | | | | | +--------+ + + + + | 01/06/ | Office | Cardiac | Randy Figueroa, | | | 2018 | Visit | Rehabilitation | MD [address] | | | | | | [place], | | | | | | [place] [address] | | | | | | [phone] | | | | | | | | +--------+ + + + + | 01/11/ | Office | Cardiac | Randy Figueroa, | | | 2018 | Visit | Rehabilitation | MD [address] | | | | | | [place], | | | | | | [place] [address] | | | | | | [phone] | | | | | | | | +--------+ + + + + | 03/24/ | Procedure | Cardiology | | | | 2018 | visit | | | | +--------+ + + + + | 03/24/ | Office | Cardiology | Jenny, | | | 2018 | Visit | | ADARSH Santo [address] | | | | | | [place], | | | | | | [place] [address] | | | | | | [phone] | | | | | | | [...] | e | 2359 PDT | Interrogation [employer] CARVER-D | procedure are in the | | REMOTE | | | ([facility]) [employer] | results section. | | | [...] + + | Performing | Address | City/State[facility] | Phone Number | | Organization | | | | + +---------+ + + | [facility] | | | | + +---------+ + + in this encounter Visit Diagnoses + + | Diagnosis | + + | Remote Device Interrogation - Primary | + + | Fitting and adjustment of automatic implantable cardiac defibrillator | + + | TOM[place]STONE CARVER-D (GABBI) [employer] 10/16/17 EULOGIO Darby | + + | Ischemic cardiomyopathy | + + | Other specified forms of chronic ischemic heart disease | + +"
--- OUTSIDE RECORDS SUMMARY | ~2018-12-11 | XMS | Encounter Summary ---
Demographics + + + | Address | [address] | | | [place] [address] | + + + | Home Phone [...] | [place] | | | | | [address] | | + + + + + Care Team Providers + +------+ + | Care Toll Test Worker Name | Role | Phone | [...] | | | involving | [address] [place] | | | | | [place] | [place] | [place] | | | | | coronary | [address] | [address] | | | | | artery of | Phone: | Phone: | | | | | [place] heart | [phone] | [phone] | | | | | without | Fax: | Fax: | | | | | angina | [phone] | [phone] | | | | | pectoris | | | + + + + + + + Encounter Details +--------+---------+ + + + | Date | Type | Department | Care Team | Description | +--------+---------+ + + + | 10/28/ | Office | [facility] | Randy Figueroa, | Coronary artery | | 2019 | Visit | MED CTR CARDIAC | MD [address] | disease, angina | | | | REHABILITATION [address], | presence | | | | [address] [place] | [place] [address] | unspecified, | | | | [place] [address] | [phone] | unspecified vessel | | | | [phone] | | or lesion type, | | | | | | unspecified whether | | | | | | [place] or | | | | | | [...] may be different from the or iginal. [facility] CARDIAC REHABILITATION [address] [place] [address] Cardiac Rehab Date: 10/28/2018 Patient Information Patient Name: Bob Will Date of : 1955 Age: 62 y.o. Encounter Diagnoses Code Name Primary? I25.10 Coronary artery disease, angina presence unspecified, unspecified vessel or lesi on type, unspecified whether [place] or transplanted heart Yes Z98.61 Post PTCA [...] | | | | | | [place] [address] | | | | | | [phone] | | | | | | | | +--------+ + + + + | 12/16/ | Office | Cardiac | Randy Figueroa, | | | 2018 | Visit | Rehabilitation | MD [address] | | | | | | [place], | | | | | | [place] [address] | | | | | | [phone] | | | | | | | | +--------+ + + + + | 12/21/ | Office | Cardiac | Randy Figueroa, | | | 2018 | Visit | Rehabilitation | MD [address] | | | | | | [place], | | | | | | [place] [address] | | | | | | [phone] | | | | | | | | +--------+ + + + + | 12/23/ | Office | Cardiac | Randy Figueroa, | | | 2018 | Visit | Rehabilitation | MD [address] | | | | | | [place], | | | | | | [place] [address] | | | | | | [phone] | | | | | | | | +--------+ + + + + | 12/28/ | Office | Cardiac | Randy Figueroa, | | | 2018 | Visit | Rehabilitation | MD [address] | | | | | | [place], | | | | | | [place] [address] | | | | | | [phone] | | | | | | | | +--------+ + + + + | 12/30/ | Office | Cardiac | Randy Figueroa, | | | 2018 | Visit | Rehabilitation | MD [address] | | | | | | [place], | | | | | | [place] [address] | | | | | | [phone] | | | | | | | | +--------+ + + + + | 01/04/ | Office | Cardiac | Randy Figueroa, | | | 2018 | Visit | Rehabilitation | MD [address] | | | | | | [place], | | | | | | [place] [address] | | | | | | [phone] | | | | | | | | +--------+ + + + + | 01/06/ | Office | Cardiac | Randy Figueroa, | | | 2018 | Visit | Rehabilitation | MD Javid Crespo | | | | | | [place], | | | | | | [place] [address] | | | | | | [phone] | | | | | | | | +--------+ + + + + | 01/11/ | Office | Cardiac | Randy Figueroa, | | | 2018 | Visit | Rehabilitation | MD [address]av[address]resp[address] | | | | | | [place], | | | | | | [place] [address] | | | | | | [phone] | | | | | | | | +--------+ + + + + | 03/24/ | Procedure | Cardiology | | | | 2018 | visit | | | | +--------+ + + + + | 03/24/ | Office | Cardiology | Jenny, | | | 2018 | Visit | | ADARSH Santo [address] | | | | | | [place], | | | | | | [place] [address] | | | | | | [phone] | | | | | | | | +--------+ + + + + as of this encounter Visit Diagnoses + + | Diagnosis | + + | Coronary artery disease, angina presence unspecified, unspecified vessel or lesion | | type, unspecified whether [place] or transplanted heart - Primary | + + | Post PTCA | + + | Postsurgical percutaneous transluminal coronary angioplasty status | + +"
--- OUTSIDE RECORDS SUMMARY | ~2018-12-11 | XMS | Encounter Summary ---
Demographics + + + | Address | [address] | | | [place] [address] | + + + | Home Phone [...] | [place] | | | | | [address] | | + + + + + Care Team Providers + +------+ + | Care Track Production Engineer Name | Role | Phone | [...] | | | involving | [address] [place] | | | | | [place] | [place], [place] | [place], [place] | | | | | coronary | [address] | [address] | | | | | artery of | Phone: | Phone: | | | | | [place] heart | [phone] | [phone] | | | | | without | Fax: | Fax: | | | | | angina | [phone] | [phone] | | | | | pectoris | | | + + + + + + + Encounter Details +--------+---------+ + + + | Date | Type | Department | Care Team | Description | +--------+---------+ + + + | 10/12/ | [facility] | [facility] | Randy Figueroa, | Coronary artery | | 2019 | Visit | MED CTR CARDIAC | MD [address] | disease, angina | | | | REHABILITATION [address], | presence | | | | [address] [place] | [place] [address] | unspecified, | | | | [place] [address] | [phone] | unspecified vessel | | | | [phone] | | or lesion type, | | | | | | unspecified whether | | | | | | [place] or | | | | | | [...] note may be different from the origin [facility] [address] [place] [address] Cardiac Rehab Date: 10/12/2018 Patient Information Patient Name: Bob Will Date of : 1955 Age: 62 y.o. Encounter Diagnoses Code Name Primary? I25.10 Coronary artery disease, angina presence unspecified, unspecified vessel or lesi on type, unspecified whether [place] or transplanted heart Yes Z98.61 Post PTCA [...] [place], | | | | | | [place] [address] | | | | | | [phone] | | | | | | | | +--------+ + + + + | 12/16/ | Office | Cardiac | Randy Figueroa, | | | 2018 | Visit | Rehabilitation | MD [address] | | | | | | [place], | | | | | | [place] [address] | | | | | | [phone] | | | | | | | | +--------+ + + + + | 12/21/ | Office | Cardiac | Randy Figueroa, | | | 2018 | Visit | Rehabilitation | MD [address] | | | | | | [place], | | | | | | [place] [address] | | | | | | [phone] | | | | | | | | +--------+ + + + + | 12/23/ | Office | Cardiac | Randy Figueroa, | | | 2018 | Visit | Rehabilitation | MD [address] | | | | | | [place], | | | | | | [place] [address] | | | | | | [phone] | | | | | | | | +--------+ + + + + | 12/28/ | Office | Cardiac | Randy Figueroa, | | | 2018 | Visit | Rehabilitation | MD [address] | | | | | | [place], | | | | | | [place] [address] | | | | | | [phone] | | | | | | | | +--------+ + + + + | 12/30/ | Office | Cardiac | Randy Figueroa, | | | 2018 | Visit | Rehabilitation | MD [address] | | | | | | [place], | | | | | | [place] [address] | | | | | | [phone] | | | | | | | | +--------+ + + + + | 01/04/ | Office | Cardiac | Randy Figueroa, | | | 2018 | Visit | Rehabilitation | MD [address] | | | | | | [place], | | | | | | [place] [address] | | | | | | [phone] | | | | | | | | +--------+ + + + + | 01/06/ | Office | Cardiac | Randy Figueroa, | | | 2018 | Visit | Rehabilitation | MD [address] | | | | | | [place], | | | | | | [place] [address] | | | | | | [phone] | | | | | | | | +--------+ + + + + | 01/11/ | Office | Cardiac | Randy Figueroa, | | | 2018 | Visit | Rehabilitation | MD [address] | | | | | | [place], | | | | | | [place] [address] | | | | | | [phone] | | | | | | | | +--------+ + + + + | 03/24/ | Procedure | Cardiology | | | | 2018 | visit | | | | +--------+ + + + + | 03/24/ | Office | Cardiology | Jenny, | | | 2018 | Visit | | [place], MANDREL PULLER [address] | | | | | | [place], | | | | | | [place] [address] | | | | | | [phone] | | | | | | | | +--------+ + + + + as of this encounter Visit Diagnoses + + | Diagnosis | + + | Coronary artery disease, angina presence unspecified, unspecified vessel or lesion | | type, unspecified whether [place] or transplanted heart - Primary | + + | Post PTCA | + + | Postsurgical percutaneous transluminal coronary angioplasty status | + +"
--- OUTSIDE RECORDS SUMMARY | ~2018-12-11 | XMS | Encounter Summary ---
Demographics + + + | Address | [address] | | | [place] [address] | + + + | Home Phone [...] | [place] | | | | | [address] | | + + + + + Care Team Providers + +------+ + | Care Motorcycle Technician Name | Role | Phone | [...] | | | involving | [address] [place] | | | | | [place] | [place] | [place] | | | | | coronary | [address] | [address] | | | | | artery of | Phone: | Phone: | | | | | [place] heart | [phone] | [phone] | | | | | without | Fax: | Fax: | | | | | angina | [phone] | [phone] | | | | | pectoris | | | + + + + + + + Encounter Details +--------+---------+ + + + | Date | Type | Department | Care Team | Description | +--------+---------+ + + + | 11/23/ | Office | [facility] | Rahullindacathy Lindaangusleo, | Acute on chronic | | 2019 | Visit | MED CTR CARDIAC | MD [address] | systolic congestive | | | | REHABILITATION [address] | [address] [place], | heart failure (HCC) | | | | [address] [place] | [place] [address] | (Primary Dx) | | | | [place] [address] | [phone] | | | | | [phone] | | | +--------+---------+ + + + [...] may be differ ent from the original. [facility] [address] [facility] [address] Cardiac Rehab Date: 11/23/2018 Patient Information Patient [...] | Visit | Rehabilitation | MD [address] | | | | | | [place], | | | | | | [place] [address] | | | | | | [phone] | | | | | | | | +--------+ + + + + | 12/16/ | Office | Cardiac | Randy Figueroa, | | | 2018 | Visit | Rehabilitation | MD [address] | | | | | | [place], | | | | | | [place] [address] | | | | | | [phone] | | | | | | | | +--------+ + + + + | 12/21/ | Office | Cardiac | Randy Figueroa, | | | 2018 | Visit | Rehabilitation | MD [address] | | | | | | [place], | | | | | | [place] [address] | | | | | | [phone] | | | | | | | | +--------+ + + + + | 12/23/ | Office | Cardiac | Randy Figueroa, | | | 2018 | Visit | Rehabilitation | MD [address] | | | | | | [place], | | | | | | [place] [address] | | | | | | [phone] | | | | | | | | +--------+ + + + + | 12/28/ | Office | Cardiac | Randy Figueroa, | | | 2018 | Visit | Rehabilitation | MD [address] | | | | | | [place], | | | | | | [place] [address] | | | | | | [phone] | | | | | | | | +--------+ + + + + | 12/30/ | Office | Cardiac | Randy Figueroa, | | | 2018 | Visit | Rehabilitation | MD [address] | | | | | | [place], | | | | | | [place] [address] | | | | | | [phone] | | | | | | | | +--------+ + + + + | 01/04/ | Office | Cardiac | Randy Figueroa, | | | 2018 | Visit | Rehabilitation | MD [address] | | | | | | [place], | | | | | | [place] [address] | | | | | | [phone] | | | | | | | | +--------+ + + + + | 01/06/ | Office | Cardiac | Randy Figueroa, | | | 2018 | Visit | Rehabilitation | MD Javid Crespo | | | | | | [place], | | | | | | [place] [address] | | | | | | [phone] | | | | | | | | +--------+ + + + + | 01/11/ | Office | Cardiac | Randy Figueroa, | | | 2018 | Visit | Rehabilitation | MD [address] | | | | | | [place], | | | | | | [place] [address] | | | | | | [phone] | | | | | | | | +--------+ + + + + | 03/24/ | Procedure | Cardiology | | | | 2018 | visit | | | | +--------+ + + + + | 03/24/ | Office | Cardiology | Jenny, | | | 2019 | Visit | | ADARSH Santo [address] | | | | | | [place], | | | | | | [place] [address] | | | | | | [phone] | | | | | | | | +--------+ + + + + as of this encounter Visit Diagnoses + + | Diagnosis | + + | Acute on chronic systolic congestive heart failure (HCC) - Primary | + + | Acute on chronic systolic heart failure | + +"
--- OUTSIDE RECORDS SUMMARY | ~2018-12-11 | XMS | Encounter Summary ---
Demographics + + + | Address | [address] | | | [place] [address] | + + + | Home Phone [...] [place] | | | | | [address] | | + + + + + Care Team Providers + +------+ + | Care Project Geophysicist Name | Role | Phone | + [...] | | CARDIOLOGY [address] | [place], RESERVATION AGENT [address] | | | | | [place], | [place], | | | | | [place] [address] | [place] [address] | | | | | [phone] | [phone] | | | | | | | [...] | | | | | | [place] [address] | | | | | | [phone] | | | | | | | | +--------+ + + + + | 12/16/ | Office | Cardiac | Randy Figueroa, | | | 2018 | Visit | Rehabilitation | MD Javid [address]respo | | | | | | [place], | | | | | | [place] [address] | | | | | | [phone] | | | | | | | | +--------+ + + + + | 12/21/ | Office | Cardiac | Randy Figueroa, | | | 2018 | Visit | Rehabilitation | MD Jav[address] | | | | | | [place], | | | | | | [place] [address] | | | | | | [phone] | | | | | | | | +--------+ + + + + | 12/23/ | Office | Cardiac | Randy Figueroa, | | | 2018 | Visit | Rehabilitation | MD [address] [place] | | | | | | [place], | | | | | | [place] [address] | | | | | | [phone] | | | | | | | | +--------+ + + + + | 12/28/ | Office | Cardiac | Randy Figueroa, | | | 2018 | Visit | Rehabilitation | MD [address] [place] | | | | | | [place], | | | | | | [place] [address] | | | | | | [phone] | | | | | | | | +--------+ + + + + | 12/30/ | Office | Cardiac | Randy Figueroa, | | | 2018 | Visit | Rehabilitation | MD [address] [place] | | | | | | [place], | | | | | | [place] [address] | | | | | | [phone] | | | | | | | | +--------+ + + + + | 01/04/ | Office | Cardiac | Randy Figueroa, | | | 2018 | Visit | Rehabilitation | MD [address] | | | | | | [place], | | | | | | [place] [address] | | | | | | [phone] | | | | | | | | +--------+ + + + + | 01/06/ | Office | Cardiac | Randy Figueroa, | | | 2018 | Visit | Rehabilitation | MD [address] | | | | | | [place], | | | | | | [place] [address] | | | | | | [phone] | | | | | | | | +--------+ + + + + | 01/11/ | Office | Cardiac | Randy Figueroa, | | | 2018 | Visit | Rehabilitation | MD [address] | | | | | | [place], | | | | | | [place] [address] | | | | | | [phone] | | | | | | | [...] | | | | | | [place] [address] | | | | | | [phone] | | | | | | | | +--------+ + + + + as of this encounter Visit Diagnoses Not on filein this encounter"
--- OUTSIDE RECORDS SUMMARY | ~2018-12-11 | XMS | Clinical Summary ---
Demographics + + + | Address | [address] | | | [place] [address] | + + + | Home Phone [...] [place] | | | | | [address] | | + + + + + Care Team Providers + +------+ + | Care Bowl Topper Name | Role | Phone | + [...] | | Activ | | (VITAMIN D-3) 80224 | a week. | | | | [...] | | nasal spray | nasal spray [place] 2 | | | | | | [...] e | | spray | aerosol spray [place] | | | | | | | [...] + | [facility]chronic obstructive [facility] | 05/14/2018 | + + + + [...] | 11/12/2017 | + + + | YEAST PUSHER-D (AICKatie) Medtronic 10/16/17 EULOGIO Darby | 10/19/2017 | + + + + + | Overview: Formatting of this note may be different from the | | original. MODEL NAME MODEL# SERIAL# DATE IMPLANTED GENERATOR | | Medtronic [id number] 10/16/17 RV LEAD Medtronic [id number] 62 | | [id number] 10/16/17 A LEAD Medtronic [id number] [id number] 10/16/17 | | Coronary Sinus LEAD Medtronic 4598 88 [id number] 10/16/17 | | Indication: ischemic cardiomyopathy with reduced EF 30-35% Last | | Assessment & Plan: Medtronic AICD Placed in 10/2017 at [facility]. | | A:-Patient ventricular paced 100% this morning. No arrhythmias on | | telemetry.P:-No acute therapy. Continue current therapy. | | | | Last Assessment & Plan: Medtronic AICD Placed in 10/2017 at [facility]. | | | |A: | [...] + + + | Overview: S/P Medtronic YEAST PUSHER-D 10-16-17 Dr Darby, [facility] Scan | | 10/13/17 [...] + + | Coronary artery disease involving [place] coronary artery of | 04/06/2017 | | [place] heart without angina pectoris | | + [...] + + + | Acute anterior wall [place] (HCC) | 04/03/2017 | + + + [...] involving | | | | | | [place] coronary | | | | | | artery of [place] | | | | | | heart without angina | | | | | | pectoris (Primary | | | | | | Dx); Post PTCA | +--------+ + + + + | 12/07/ | Office | | Randy Figueroa, | Coronary artery | | 2018 | Visit | | MD | disease involving | | | | | | [place] coronary | | | | | | artery of [place] | | | | | | heart [...] | | | | | (Primary Dx); YEAST PUSHER-D | | | | | | (AICD) Medtronic | | | | | | 10/16/17 ORMENDY Darby; | | | | | | Ischemic | | | | | | cardiomyopathy | +--------+ + + + + | 12/02/ | Office | | Randy Figueroa, | Coronary artery | | 2018 | Visit | | MD | disease involving | | | | | | [place] coronary | | | | | | artery of [place] | | | | | | heart [...] involving | | | | | | [place] coronary | | | | | | artery of [place] | | | | | | heart [...] involving | | | | | | [place] coronary | | | | | | artery of [place] | | | | | | heart [...] involving | | | | | | [place] coronary | | | | | | artery of [place] | | | | | | heart [...] involving | | | | | | [place] coronary | | | | | | artery of [place] | | | | | | heart [...] whether | | | | | | [place] or | | | | | | [...] whether | | | | | | [place] or | | | | | | [...] whether | | | | | | [place] or | | | | | | [...] whether | | | | | | [place] or | | | | | | [...] whether | | | | | | [place] or | | | | | | [...] whether | | | | | | [place] or | | | | | | [...] whether | | | | | | [place] or | | | | | | [...] | | | | | anterior wall [place] | | | | | | (HCC); Coronary | | | | | | artery disease | | | | | | involving [place] | | | | | | coronary artery of | | | | | | [place] heart without | | | | | [...] whether | | | | | | [place] or | | | | | | [...] | Visit | | MD [address] | | | | | | [place], | | | | | | [place] [address] | | | | | | [phone] | | | | | | | | +--------+ + + + + | 12/16/ | Office | | Randy Figueroa, | | | 2018 | Visit | | MD [address] | | | | | | [place], | | | | | | [place] [address] | | | | | | [phone] | | | | | | | | +--------+ + + + + | 12/21/ | Office | | Randy Figueroa, | | | 2018 | Visit | | MD [address] | | | | | | [place], | | | | | | [place] [address] | | | | | | [phone] | | | | | | | | +--------+ + + + + | 12/23/ | Office | | Randy Figueroa, | | | 2018 | Visit | | MD [address] | | | | | | [place], | | | | | | [place] [address] | | | | | | [phone] | | | | | | | | +--------+ + + + + | 12/28/ | Office | | Randy Figueroa, | | | 2018 | Visit | | MD [address] | | | | | | [place], | | | | | | [place] [address] | | | | | | [phone] | | | | | | | | +--------+ + + + + | 12/30/ | Office | | Randy Figueroa, | | | 2018 | Visit | | MD [address] | | | | | | [place], | | | | | | [place] [address] | | | | | | [phone] | | | | | | | | +--------+ + + + + | 01/04/ | Office | | Randy Figueroa, | | | 2018 | Visit | | MD [address] | | | | | | [place], | | | | | | [place] [address] | | | | | | [phone] | | | | | | | | +--------+ + + + + | 01/06/ | Office | | Randy Figueroa, | | | 2018 | Visit | | MD [address] | | | | | | [place], | | | | | | [place] [address] | | | | | | [phone] | | | | | | | | +--------+ + + + + | 01/11/ | Office | | Randy Figueroa, | | | 2018 | Visit | | MD [address] | | | | | | [place], | | | | | | [place] [address] | | | | | | [phone] | | | | | | | [...] | | | | | | [place] [address] | | | | | | [phone] | | | | | | | [...] Generi | Left: | TERUMO LORIN | [id number] | 12/05/ | [id number] | | [id number]: Qty: 1 | c | Groin | - TERU | [id number] | 2018 | / | | on 05/19/2018 by Thew, | | | | 20 | | /[id number] | | Khurram Isabel MD | | | | | | 371 | + +--------+--------+ +--------+--------+--------+ | Plant Culture Manager-D MedtronicImplanted: | Implan | | MEDTRONIC [...] N/A: | ISAACS | | 12/29/ | [id number] | | Eluting Coronary Stent System | | Mackay | DIAGNOSTICS | | 2019 | 0-18 / | | Implanted: Qty: 1 on | | ry | - DAINA | | | | | 03/15/2017 by Monse Ross, | | | | | | /[id number] | | MD | | | | | | 61 | + +--------+--------+ +--------+--------+--------+ | Xience Alpine Everolimus | Stent | N/A: | ISAACS | | 11/03/ | [id number] | | Eluting Coronary Stent System | | Mackay | DIAGNOSTICS | | 2019 | 0-23 / | | Implanted: Qty: 1 on | | ry | - DAINA | | | | | 03/15/2017 by Monse Ross, | | | | | | /[id number] | | MD | | | | | | 41 | + +--------+--------+ +--------+--------+--------+ | Kit Perclose Proglide 6fr - | | Right: | ISAACS | [id number] | | 74892- | | [id number]: Qty: 1 | | Alessiain | VASCULAR - | [id number] | | 03 / / | | on 05/19/2018 by Missael, | | | ABVA | 89 | | | | Khurram Isabel MD | | | | | | | + +--------+--------+ +--------+--------+--------+ | Kit Perclose Proglide 6fr - | | Right: | ISAACS | [id number] | | 01934- | | [id number]: Qty: 1 | | Groin | VASCULAR - | [id number] | | 03 / / | | [...] this | | INTERROGATION- | e | 1409 PDT | Interrogation YEAST PUSHER-D | procedure are in the | | [...] PDF scanned into | | | [facility] for remote interrogation results. Data collected [...] | [employer] | MODA | [id number] | Medica | [phone] | | | MEDICAID HMO | HEALTH | | id | [phone] | | | | MDCD | | | | | | | HMO [place] | | | | | + +--------+ +--------+ +---------+ | VETERANS ADMIN | VETERA | [id number] | Indemn | | | | | NS | | ity | | | | | ADMIN | | | | | | | [place] | | | | | | | [place] | | | | | + +--------+ +--------+ +---------+ | VETERANS ADMIN | VETERA | [id number] | Indemn | | | | | [...] Self | [birth year] | Home: | [address] | | | al/Fam | | 1956 | [phone] | [place] | | | [place] | | | [phone] | [address] | + +--------+ +--------+ + +
--- OUTSIDE RECORDS SUMMARY | ~2018-12-11 | XMS | Encounter Summary ---
Demographics + + + | Address | [address] | | | [place] [address] | + + + | Home Phone [...] | [place] | | | | | [address] | | + + + + + Care Team Providers + +------+ + | Care Axle Turner Name | Role | Phone | + [...] | | | involving | [address] [place] | | | | | algaaciq | [address] [address] | [place] | | | | | coronary | [address] | [address] | | | | | artery of | Phone: | Phone: | | | | | algaaciq heart | [phone] | [phone] | | | | | without | Fax: | Fax: | | | | | angina | [phone] | [phone] | | | | | pectoris | | | + + + + + + + Encounter Details +--------+---------+ + + + | Date | Type | Department | Care Team | Description | +--------+---------+ + + + | 11/09/ | Office | [facility] | Randy Figueroa, | Coronary artery | | 2019 | Visit | MED CTR CARDIAC | MD [address] | disease involving | | | | REHABILITATION [address] [place] [place], | algaaciq coronary | | | | [address] [place] | [place] [address] | artery of algaaciq | | | | [place] [address] | [phone] | heart without angina | | | | [phone] | | pectoris (Primary | | | [...] CTR CARDIAC REHABILITATION [address] [place] [address] Cardiac Rehab Date: 11/09/2018 Patient Information Patient Name: Bob Will Date of : 1955 Age: 63 y.o. Encounter Diagnoses Code Name Primary? I25.10 Coronary artery disease involving [place] coronary artery of [place] heart without angina pectoris Yes Number of [...] | | | | | | [place], | | | | | | [place] [address] | | | | | | [phone] | | | | | | | | +--------+ + + + + | 12/16/ | Office | Cardiac | Randy Figueroa, | | | 2018 | Visit | Rehabilitation | MD [address] | | | | | | [place], | | | | | | [place] [address] | | | | | | [phone] | | | | | | | | +--------+ + + + + | 12/21/ | Office | Cardiac | Randy Figueroa, | | | 2018 | Visit | Rehabilitation | MD [address] | | | | | | [place], | | | | | | [place] [address] | | | | | | [phone] | | | | | | | | +--------+ + + + + | 12/23/ | Office | Cardiac | Randy Figueroa, | | | 2018 | Visit | Rehabilitation | MD [address] | | | | | | [place], | | | | | | [place] [address] | | | | | | [phone] | | | | | | | | +--------+ + + + + | 12/28/ | Office | Cardiac | Randy Figueroa, | | | 2018 | Visit | Rehabilitation | MD [address] | | | | | | [place], | | | | | | [place] [address] | | | | | | [phone] | | | | | | | | +--------+ + + + + | 12/30/ | Office | Cardiac | Randy Figueroa, | | | 2018 | Visit | Rehabilitation | MD [address] | | | | | | [place], | | | | | | [place] [address] | | | | | | [phone] | | | | | | | | +--------+ + + + + | 01/04/ | Office | Cardiac | Randy Figueroa, | | | 2018 | Visit | Rehabilitation | MD [address] | | | | | | [place], | | | | | | [place] [address] | | | | | | [phone] | | | | | | | | +--------+ + + + + | 01/06/ | Office | Cardiac | Randy Figueroa, | | | 2018 | Visit | Rehabilitation | MD [address] | | | | | | [place], | | | | | | [place] [address] | | | | | | [phone] | | | | | | | | +--------+ + + + + | 01/11/ | Office | Cardiac | Randy Figueroa, | | | 2018 | Visit | Rehabilitation | MD [address] | | | | | | [place], | | | | | | [place] [address] | | | | | | [phone] | | | | | | | [...] | | | | | | [place] [address] | | | | | | [phone] | | | | | | | | +--------+ + + + + as of this encounter Visit Diagnoses + + | Diagnosis | + + | Coronary artery disease involving [place] coronary artery of algaaci[place] heart without | | angina pectoris - Primary | + +"
--- OUTSIDE RECORDS SUMMARY | ~2018-12-11 | XMS | Clinical Summary ---
Demographics + + + | Address | [address] | | | [place] [address] | + + + | Home Phone [...] [place] | | | | | [address] | | + + + + + Care Team Providers + +------+ + | Care Sort Line Name | Role | Phone | + [...] | | Activ | | (VITAMIN D-3) [phone] | a week. | | | | [...] | | nasal spray | nasal spray [place] 2 | | | | | | [...] e | | spray | aerosol spray [place] | | | | | | | [...] + | COPD (chronic obstructive pulmonary disease) ([facility]) | 05/14/2018 | + + [...] | 11/12/2017 | + + + | FORMS BUILDER-D (AICKatie) Medtronic 10/16/17 EULOGIO Darby | 10/19/2017 | + + + + + | Overview: Formatting of this note may be different from the | | original. MODEL NAME MODEL# SERIAL# DATE IMPLANTED GENERATOR | | Medtronic [id number] 10/16/17 RV LEAD Medtronic [id number] 62 | | [id number] 10/16/17 A LEAD Medtronic 5076 [id number] 10/16/17 | | Coronary Sinus LEAD Medtronic 4598 88 [id number] 10/16/17 | | Indication: ischemic cardiomyopathy with reduced EF 30-35% Last | | Assessment & Plan: Medtronic AICD Placed in 10/2017 at [facility]. | | A:-Patient ventricular paced 100% this morning. No arrhythmias on | | telemetry.P:-No acute therapy. Continue current therapy. | | | | Last Assessment & Plan: Medtronic AICD Placed in 10/2017 at [facility]. | | | |A: | [...] + + + | Overview: S/P Medtronic FORMS BUILDER-D 10-16-17 Dr Darby, [facility] Scan | | 10/13/17 shows No [...] + | Coronary artery disease involving [place] coronary artery of | 04/06/2017 | | [place] heart without angina pectoris | | + [...] + + | Acute anterior wall [place] (HCC) | 04/03/2017 | + + + [...] involving | | | | | | [place] coronary | | | | | | artery of [place] | | | | | | heart without angina | | | | | | pectoris (Primary | | | | | | Dx); Post PTCA | +--------+ + + + + | 12/07/ | Office | | Randy Figueroa, | Coronary artery | | 2018 | Visit | | MD | disease involving | | | | | | [place] coronary | | | | | | artery of [place] | | | | | | heart [...] | | | | | (Primary Dx); FORMS BUILDER-D | | | | | | (AICD) Medtronic | | | | | | 10/16/17 MEMENDY Darby; | | | | | | Ischemic | | | | | | cardiomyopathy | +--------+ + + + + | 12/02/ | Office | | Randy Figueroa, | Coronary artery | | 2018 | Visit | | MD | disease involving | | | | | | [place] coronary | | | | | | artery of [place] | | | | | | heart [...] involving | | | | | | [place] coronary | | | | | | artery of [place] | | | | | | heart [...] involving | | | | | | [place] coronary | | | | | | artery of [place] | | | | | | heart [...] involving | | | | | | [place] coronary | | | | | | artery of [place] | | | | | | heart [...] involving | | | | | | [place] coronary | | | | | | artery of [place] | | | | | | heart [...] whether | | | | | | [place] or | | | | | | [...] whether | | | | | | [place] or | | | | | | [...] whether | | | | | | [place] or | | | | | | [...] whether | | | | | | [place] or | | | | | | [...] whether | | | | | | [place] or | | | | | | [...] whether | | | | | | [place] or | | | | | | [...] whether | | | | | | [place] or | | | | | | [...] | | | | | anterior wall [place] | | | | | | (HCC); Coronary | | | | | | artery disease | | | | | | involving [place] | | | | | | coronary artery of | | | | | | [place] heart without | | | | | [...] whether | | | | | | [place] or | | | | | | [...] | Visit | | MD [address] | | | | | | [place], | | | | | | [place] [address] | | | | | | [phone] | | | | | | | | +--------+ + + + + | 12/16/ | Office | | Randy Figueroa, | | | 2018 | Visit | | MD [address] | | | | | | [place], | | | | | | [place] [address] | | | | | | [phone] | | | | | | | | +--------+ + + + + | 12/21/ | Office | | Randy Figueroa, | | | 2018 | Visit | | MD [address] | | | | | | [place], | | | | | | [place] [address] | | | | | | [phone] | | | | | | | | +--------+ + + + + | 12/23/ | Office | | Randy Figueroa, | | | 2018 | Visit | | MD [address] | | | | | | [place], | | | | | | [place] [address] | | | | | | [phone] | | | | | | | | +--------+ + + + + | 12/28/ | Office | | Randy Figueroa, | | | 2018 | Visit | | MD [address] | | | | | | [place], | | | | | | [place] [address] | | | | | | [phone] | | | | | | | | +--------+ + + + + | 12/30/ | Office | | Randy Figueroa, | | | 2018 | Visit | | MD [address] | | | | | | [place], | | | | | | [place] [address] | | | | | | [phone] | | | | | | | | +--------+ + + + + | 01/04/ | Office | | Randy Figueroa, | | | 2018 | Visit | | MD [address] | | | | | | [place], | | | | | | [place] [address] | | | | | | [phone] | | | | | | | | +--------+ + + + + | 01/06/ | Office | | Randy Figueroa, | | | 2018 | Visit | | MD [address] | | | | | | [place], | | | | | | [place] [address] | | | | | | [phone] | | | | | | | | +--------+ + + + + | 01/11/ | Office | | Randy Figueroa, | | | 2018 | Visit | | MD [address] | | | | | | [place], | | | | | | [place] [address] | | | | | | [phone] | | | | | | | [...] [place], | | | | | | [place] [address] | | | | | | [phone] | | | | | | | [...] Generi | Left: | TERUMO LORIN | [id number] | 12/05/ | [id number] | | [id number]: Qty: 1 | c | Groin | - TERU | [id number] | 2018 | / | | on 05/19/2018 by Thew, | | | | 20 | | /[id number] | | Khurram Isabel MD | | | | | | 371 | + +--------+--------+ +--------+--------+--------+ | Stencil Printer-D MedtronicImplanted: | Implan | | MEDTRONIC - [...] MEDT | | | [id number] | | Mihcael Darby MD | | | | | [...] N/A: | ISAACS | | 12/29/ | [id number] | | Eluting Coronary Stent System | | Mackay | DIAGNOSTICS | | 2019 | 0-18 / | | Implanted: Qty: 1 on | | ry | - DAINA | | | | | 03/15/2017 by Monse Ross, | | | | | | /[id number] | | MD | | | | | | 61 | + +--------+--------+ +--------+--------+--------+ | Xience Alpine Everolimus | Stent | N/A: | ISAACS | | 11/03/ | [id number] | | Eluting Coronary Stent System | | Mackay | DIAGNOSTICS | | 2019 | 0-23 / | | Implanted: Qty: 1 on | | ry | - DAINA | | | | | 03/15/2017 by Monse Ross, | | | | | | /[id number] | | MD | | | | | | 41 | + +--------+--------+ +--------+--------+--------+ | Kit Perclose Proglide 6fr - | | Right: | ISAACS | [id number] | | 87478- | | [id number]: Qty: 1 | | Alessiain | VASCULAR - | [id number] | | 03 / / | | on 05/19/2018 by Missael, | | | ABVA | 89 | | | | Khurram Isabel MD | | | | | | | + +--------+--------+ +--------+--------+--------+ | Kit Perclose Proglide 6fr - | | Right: | ISAACS | [id number] | | 00526- | | [id number]: Qty: 1 | | Groin | VASCULAR - | [id number] | | 03 / / | | [...] this | | INTERROGATION- | e | 0239 PDT | Interrogation FORMS BUILDER-D | procedure are in the | | [...] PDF scanned into | | | [facility] for remote interrogation results. Data collected [...] | [employer] | MODA | [id number] | Medica | [phone] | | | MEDICAID HMO | HEALTH | | id | [id number] | | | | MDCD | | | | | | | HMO [place] | | | | | + +--------+ +--------+ +---------+ | [employer] ADMIN | VETERA | [id number] | Indemn | | | | | NS | | ity | | | | | ADMIN | | | | | | | [place] | | | | | | | [place] | | | | | + +--------+ +--------+ +---------+ | VET[employer]ANS ADMIN | VETERA | [id number] | Indemn | | | | | [...] Self | [birth year] | Home: | [address] | | | al/Fam | | 1956 | [phone] | [place] | | | [place] | | | [phone] | [address] | + +--------+ +--------+ + +
--- OUTSIDE RECORDS SUMMARY | ~2018-12-11 | XMS | Encounter Summary ---
Demographics + + + | Address | [address] | | | [place] [address] | + + + | Home Phone [...] [place] | | | | | [address] | | + + + + + Care Team Providers + +------+ + | Care X Ray Technologist Name | Role | Phone | + +------+ + | Young Haque DO | PCP | | + +------+ + Encounter Details +--------+ + + + + | Date | Type | Department | Care Team | Description | +--------+ + + + + | 03/19/ | Abstract | [facility] [place] | Jenny, | | | 2018 | | CARDIOLOGY [address] | Hansa C CONSULTANT [address] | | | | | [place], | [place], | | | | | [place] [address] | [place] [address] | | | | | [phone] | [phone] | | | | | | | [...] Visit | Rehabilitation | MD [address] [place] | | | | | | [place], | | | | | | [place] [address] | | | | | | [phone] | | | | | | | | +--------+ + + + + | 12/16/ | Office | Cardiac | Randy Figueroa, | | | 2018 | Visit | Rehabilitation | MD [address] [place] | | | | | | [place], | | | | | | [place] [address] | | | | | | [phone] | | | | | | | | +--------+ + + + + | 12/21/ | Office | Cardiac | Randy Figueroa, | | | 2018 | Visit | Rehabilitation | MD [address] [place] | | | | | | [place], | | | | | | [place] [address] | | | | | | [phone] | | | | | | | | +--------+ + + + + | 12/23/ | Office | Cardiac | Randy Figueroa, | | | 2018 | Visit | Rehabilitation | MD [address] [place] | | | | | | [place], | | | | | | [place] [address] | | | | | | [phone] | | | | | | | | +--------+ + + + + | 12/28/ | Office | Cardiac | Randy Figueroa, | | | 2018 | Visit | Rehabilitation | MD [address] [place] | | | | | | [place], | | | | | | [place] [address] | | | | | | [phone] | | | | | | | | +--------+ + + + + | 12/30/ | Office | Cardiac | Randy Figueroa, | | | 2018 | Visit | Rehabilitation | MD [address] [place] | | | | | | [place], | | | | | | [place] [address] | | | | | | [phone] | | | | | | | | +--------+ + + + + | 01/04/ | Office | Cardiac | Randy Figueroa, | | | 2018 | Visit | Rehabilitation | MD [address] | | | | | | [place], | | | | | | [place] [address] | | | | | | [phone] | | | | | | | | +--------+ + + + + | 01/06/ | Office | Cardiac | Randy Figueroa, | | | 2018 | Visit | Rehabilitation | [address] [place] | | | | | | [place], | | | | | | [place] [address] | | | | | | [phone] | | | | | | | | +--------+ + + + + | 01/11/ | Office | Cardiac | Randy Figueroa, | | | 2018 | Visit | Rehabilitation | [address] | | | | | | [place], | | | | | | [place] [address] | | | | | | [phone] | | | | | | | | +--------+ + + + + | 03/24/ | Procedure | Cardiology | | | | 2018 | visit | | | | +--------+ + + + + | 03/24/ | Office | Cardiology | Jenny, | | | 2018 | Visit | | ADARSH Santo [address] | | | | | | [place], | | | | | | [place] [address] | | | | | | [phone] | | | | | | | [...]
--- OUTSIDE RECORDS SUMMARY | ~2018-12-11 | XMS | Encounter Summary ---
Demographics + + + | Address | [address] | | | [place] [address] | + + + | Home Phone [...] [place] | | | | | [address] | | + + + + + Care Team Providers + +------+ + | Care Leak Patcher Name | Role | Phone | + [...] + + | 11/18/ | Telephone | [facility] | Jenny, | Blood Pressure | | 2019 | | CARDIOLOGY [address] | [place], [employer] [facility] [address] | | | | | [place], | [place], | | | | | [place] [address] | [place] [address] | | | | | [phone] | | | | | | | [...] | | | | | | [place] [address] | | | | | | [phone] | | | | | | | | +--------+ + + + + | 12/16/ | Office | Cardiac | Randy Figueroa, | | | 2018 | Visit | Rehabilitation | MD Jav[address]resp[address] | | | | | | [place], | | | | | | [place] [address] | | | | | | [phone] | | | | | | | | +--------+ + + + + | 12/21/ | Office | Cardiac | Randy Figueroa, | | | 2018 | Visit | Rehabilitation | MD Javid Crespo | | | | | | [place], | | | | | | [place] [address] | | | | | | [phone] | | | | | | | | +--------+ + + + + | 12/23/ | Office | Cardiac | Randy Figueroa, | | | 2018 | Visit | Rehabilitation | MD [address] | | | | | | [place], | | | | | | [place] [address] | | | | | | [phone] | | | | | | | | +--------+ + + + + | 12/28/ | Office | Cardiac | Randy Figueroa, | | | 2018 | Visit | Rehabilitation | MD [address] | | | | | | [place], | | | | | | [place] [address] | | | | | | [phone] | | | | | | | | +--------+ + + + + | 12/30/ | Office | Cardiac | Randy Figueroa, | | | 2018 | Visit | Rehabilitation | MD [address] | | | | | | [place], | | | | | | [place] [address] | | | | | | [phone] | | | | | | | | +--------+ + + + + | 01/04/ | Office | Cardiac | Randy Figueroa, | | | 2018 | Visit | Rehabilitation | MD [address] | | | | | | [place], | | | | | | [place] [address] | | | | | | [phone] | | | | | | | | +--------+ + + + + | 01/06/ | Office | Cardiac | Randy Figueroa, | | | 2018 | Visit | Rehabilitation | MD [address] | | | | | | [place], | | | | | | [place] [address] | | | | | | [phone] | | | | | | | | +--------+ + + + + | 01/11/ | Office | Cardiac | Randy Figueroa, | | | 2018 | Visit | Rehabilitation | MD [address] | | | | | | [place], | | | | | | [place] [address] | | | | | | [phone] | | | | | | | [...] | | | | | | [place] [address] | | | | | | [phone] | | | | | | | | +--------+ + + + + as of this encounter Visit Diagnoses Not on filein this encounter"
--- OUTSIDE RECORDS SUMMARY | ~2018-12-11 | XMS | Encounter Summary ---
Demographics + + + | Address | [address] | | | [place] [address] | + + + | Home Phone [...] Providers + +------+ + | Care Air Motor Repairer Name | Role | Phone [...] | | | involving | [address] [place] | | | | | [place] | [place] | [place] | | | | | coronary | [address] | [address] | | | | | artery of | Phone: | Phone: | | | | | [place] heart | [phone] | [phone] | | | | | without | Fax: | Fax: | | | | | angina | [phone] | [phone] | | | | | pectoris | | | + + + + + + + Encounter Details +--------+---------+ + + + | Date | Type | Department | Care Team | Description | +--------+---------+ + + + | 12/09/ | Office | [facility] | Randy Figueroa, | Coronary artery | | 2019 | Visit | MED CTR CARDIAC | MD [address] | disease involving | | | | REHABILITATION [address] | [place], | [place] coronary | | | | [address] [place] | [place] [address] | artery of [place] | | | | [place] [address] | [phone] | heart without angina | | | | [phone] | | pectoris (Primary | | | [...] | | | | | | [place] [address] | | | | | | [phone] | | | | | | | | +--------+ + + + + | 12/16/ | Office | Cardiac | Randy Figueroa, | | | 2018 | Visit | Rehabilitation | MD Javid Crespo | | | | | | [place], | | | | | | [place] [address] | | | | | | [phone] | | | | | | | | +--------+ + + + + | 12/21/ | Office | Cardiac | Randy Figueroa, | | | 2018 | Visit | Rehabilitation | MD [address] | | | | | | [place], | | | | | | [place] [address] | | | | | | [phone] | | | | | | | | +--------+ + + + + | 12/23/ | Office | Cardiac | Randy Figueroa, | | | 2018 | Visit | Rehabilitation | MD [address] | | | | | | [place], | | | | | | [place] [address] | | | | | | [phone] | | | | | | | | +--------+ + + + + | 12/28/ | Office | Cardiac | Randy Figueroa, | | | 2018 | Visit | Rehabilitation | MD [address] | | | | | | [place], | | | | | | [place] [address] | | | | | | [phone] | | | | | | | | +--------+ + + + + | 12/30/ | Office | Cardiac | Randy Figueroa, | | | 2018 | Visit | Rehabilitation | MD [address] | | | | | | [place], | | | | | | [place] [address] | | | | | | [phone] | | | | | | | | +--------+ + + + + | 01/04/ | Office | Cardiac | Randy Figueroa, | | | 2018 | Visit | Rehabilitation | MD [address] | | | | | | [place], | | | | | | [place] [address] | | | | | | [phone] | | | | | | | | +--------+ + + + + | 01/06/ | Office | Cardiac | Randy Figueroa, | | | 2018 | Visit | Rehabilitation | MD [address] | | | | | | [place], | | | | | | [place] [address] | | | | | | [phone] | | | | | | | | +--------+ + + + + | 01/11/ | Office | Cardiac | Randy Figueroa, | | | 2018 | Visit | Rehabilitation | MD [address] | | | | | | [place], | | | | | | [place] [address] | | | | | | [phone] | | | | | | | | +--------+ + + + + | 03/24/ | Procedure | Cardiology | | | | 2018 | visit | | | | +--------+ + + + + | 03/24/ | Office | Cardiology | Jenny, | | | 2018 | Visit | | ADARSH Santo [address] | | | | | | [place], | | | | | | [place] [address] | | | | | | [phone] | | | | | | | | +--------+ + + + + as of this encounter Visit Diagnoses + + | Diagnosis | + + | Coronary artery disease involving [place] coronary artery of [place] heart without | | angina pectoris - Primary | + + | Post PTCA | + + | Postsurgical percutaneous transluminal coronary angioplasty status | + +"
--- OUTSIDE RECORDS SUMMARY | ~2018-12-11 | XMS | Encounter Summary ---
Demographics + + + | Address | [address] | | | [place] [address] | + + + | Home Phone [...] [place] | | | | | [address] | | + + + + + Care Team Providers + +------+ + | Care Water Quality Analyst Name | Role | Phone | [...] | | | | | | [place] [address] | | | | | | [phone] | | | +--------+ + + + [...] | | | | | | [place] [address] | | | | | | [phone] | | | | | | | | +--------+ + + + + | 12/16/ | Office | Cardiac | Randy Figueroa, | | | 2018 | Visit | Rehabilitation | MD [address] | | | | | | [place], | | | | | | [place] [address] | | | | | | [phone] | | | | | | | | +--------+ + + + + | 12/21/ | Office | Cardiac | Randy Figueroa, | | | 2018 | Visit | Rehabilitation | MD [address] | | | | | | [place], | | | | | | [place] [address] | | | | | | [phone] | | | | | | | | +--------+ + + + + | 12/23/ | Office | Cardiac | Randy Figueroa, | | 2018 | Visit | Rehabilitation | MD [address] | | | | | | [place], | | | | | | [place] [address] | | | | | | [phone] | | | | | | | | +--------+ + + + + | 12/28/ | Office | Cardiac | Randy Figueroa, | | | 2018 | Visit | Rehabilitation | MD [address] | | | | | | [place], | | | | | | [place] [address] | | | | | | [phone] | | | | | | | | +--------+ + + + + | 12/30/ | Office | Cardiac | Randy Figueroa, | | | 2018 | Visit | Rehabilitation | MD [address] | | | | | | [place], | | | | | | [place] [address] | | | | | | [phone] | | | | | | | | +--------+ + + + + | 01/04/ | Office | Cardiac | Randy Figueroa, | | | 2018 | Visit | Rehabilitation | MD [address] | | | | | | [place], | | | | | | [place] [address] | | | | | | [phone] | | | | | | | | +--------+ + + + + | 01/06/ | Office | Cardiac | Randy Figueroa, | | | 2018 | Visit | Rehabilitation | MD [address] | | | | | | [place], | | | | | | [place] [address] | | | | | | [phone] | | | | | | | | +--------+ + + + + | 01/11/ | Office | Cardiac | Randy Figueroa, | | | 2018 | Visit | Rehabilitation | [address] | | | | | | [place], | | | | | | [place] [address] | | | | | | [phone] | | | | | | | [...] | | | | | | [place] [address] | | | | | | [phone] | | | | | | | | +--------+ + + + + as of this encounter Visit Diagnoses Not on filein this encounter"
--- OUTSIDE RECORDS SUMMARY | ~2018-12-11 | XMS | Encounter Summary ---
Demographics + + + | Address | [address] | | | [place] [address] | + + + | Home Phone [...] [place] | | | | | [address] | | + + + + + Care Team Providers + +------+ + | Care Filteration Operator Name | Role | Phone | [...] | 12/06/ | Refill | [facility] | Jenny, | Medication Refill | | 2018 | | CARDIOLOGY [address] | ADARSH Santo [address] | | | | | [place], | [place], | | | | | [place] [address] | [place] [address] | | | | | [phone] | [phone] | | | | | | | [...] | | | | | | [place] [address] | | | | | | [phone] | | | | | | | | +--------+ + + + + | 12/16/ | Office | Cardiac | Randy Figueroa, | | | 2018 | Visit | Rehabilitation | MD Jav[address]resp[address] | | | | | | [place], | | | | | | [place] [address] | | | | | | [phone] | | | | | | | | +--------+ + + + + | 12/21/ | Office | Cardiac | Randy Figueroa, | | | 2018 | Visit | Rehabilitation | MD [address]av[address] | | | | | | [place], | | | | | | [place] [address] | | | | | | [phone] | | | | | | | | +--------+ + + + + | 12/23/ | Office | Cardiac | Randy Figueroa, | | | 2018 | Visit | Rehabilitation | MD [address] [place] | | | | | | [place], | | | | | | [place] [address] | | | | | | [phone] | | | | | | | | +--------+ + + + + | 12/28/ | Office | Cardiac | Randy Figueroa, | | | 2018 | Visit | Rehabilitation | MD [address] [place] | | | | | | [place], | | | | | | [place] [address] | | | | | | [phone] | | | | | | | | +--------+ + + + + | 12/30/ | Office | Cardiac | Randy Figueroa, | | | 2018 | Visit | Rehabilitation | MD [address] [place] | | | | | | [place], | | | | | | [place] [address] | | | | | | [phone] | | | | | | | | +--------+ + + + + | 01/04/ | Office | Cardiac | Randy Figueroa, | | | 2018 | Visit | Rehabilitation | MD [address] [place] | | | | | | [place], | | | | | | [place] [address] | | | | | | [phone] | | | | | | | | +--------+ + + + + | 01/06/ | Office | Cardiac | Randy Figueroa, | | | 2018 | Visit | Rehabilitation | MD [address] [place] | | | | | | [place], | | | | | | [place] [address] | | | | | | [phone] | | | | | | | | +--------+ + + + + | 01/11/ | Office | Cardiac | Randy Figueroa, | | | 2018 | Visit | Rehabilitation | MD [address] [place] | | | | | | [place], | | | | | | [place] [address] | | | | | | [phone] | | | | | | | [...] | | | | | | [place] [address] | | | | | | [phone] | | | | | | | | +--------+ + + + + as of this encounter Visit Diagnoses Not on filein this encounter"
--- OUTSIDE RECORDS SUMMARY | ~2018-12-11 | XMS | Encounter Summary ---
Demographics + + + | Address | [address] | | | [place] [address] | + + + | Home Phone [...] | [place] | | | | | [address] | | + + + + + Care Team Providers + +------+ + | Care Facilities And Grounds Director Name | Role | Phone | [...] | | | involving | [address] [place] | | | | | [place] | [place] | [place] | | | | | coronary | [address] | [address] | | | | | artery of | Phone: | Phone: | | | | | [place] heart | [phone] | [phone] | | | | | without | Fax: | Fax: | | | | | angina | [phone] | [phone] | | | | | pectoris | | | + + + + + + + Encounter Details +--------+---------+ + + + | Date | Type | Department | Care Team | Description | +--------+---------+ + + + | 11/30/ | Office | [facility] | Carolina Randy, | Coronary artery | | 2019 | Visit | MED CTR CARDIAC | MD [address] | disease involving | | | | REHABILITATION [address] | [place], | [place] coronary | | | | [address] [place] | [place] [address] | artery of [place] | | | | [place] [address] | [phone] | heart without angina | | | | [phone] | | pectoris (Primary | | | [...] may be different from the origin al. [facility] MED CTR CARDIAC REHABILITATION [address] [place] [address] Cardiac Rehab Date: 11/30/2018 Patient Information Patient Name: Bob Will Date of : 1955 Age: 63 y.o. Encounter Diagnoses Code Name Primary? I25.10 Coronary artery disease involving [place] coronary artery of [place] heart without angina pectoris Yes Z98.61 Post [...] Visit | Rehabilitation | MD [address] | | | | | | [place], | | | | | | [place] [address] | | | | | | [phone] | | | | | | | | +--------+ + + + + | 12/16/ | Office | Cardiac | Randy Figueroa, | | | 2018 | Visit | Rehabilitation | MD [address] | | | | | | [place], | | | | | | [place] [address] | | | | | | [phone] | | | | | | | | +--------+ + + + + | 12/21/ | Office | Cardiac | Randy Figueroa, | | | 2018 | Visit | Rehabilitation | MD [address] | | | | | | [place], | | | | | | [place] [address] | | | | | | [phone] | | | | | | | | +--------+ + + + + | 12/23/ | Office | Cardiac | Randy Figueroa, | | | 2018 | Visit | Rehabilitation | MD [address] | | | | | | [place], | | | | | | [place] [address] | | | | | | [phone] | | | | | | | | +--------+ + + + + | 12/28/ | Office | Cardiac | Randy Figueroa, | | | 2018 | Visit | Rehabilitation | MD [address] | | | | | | [place], | | | | | | [place] [address] | | | | | | [phone] | | | | | | | | +--------+ + + + + | 12/30/ | Office | Cardiac | Randy Figueroa, | | | 2018 | Visit | Rehabilitation | MD [address] | | | | | | [place], | | | | | | [place] [address] | | | | | | [phone] | | | | | | | | +--------+ + + + + | 01/04/ | Office | Cardiac | Randy Figueroa, | | 2018 | Visit | Rehabilitation | MD [address] | | | | | | [place], | | | | | | [place] [address] | | | | | | [phone] | | | | | | | | +--------+ + + + + | 01/06/ | Office | Cardiac | Randy Figueroa, | | | 2018 | Visit | Rehabilitation | MD Jav[address] Crespo | | | | | | [place], | | | | | | [place] [address] | | | | | | [phone] | | | | | | | | +--------+ + + + + | 01/11/ | Office | Cardiac | Randy Figueroa, | | | 2018 | Visit | Rehabilitation | [address] | | | | | | [place], | | | | | | [place] [address] | | | | | | [phone] | | | | | | | | +--------+ + + + + | 03/24/ | Procedure | Cardiology | | | | 2018 | visit | | | | +--------+ + + + + | 03/24/ | Office | Cardiology | Jenny, | | | 2018 | Visit | | Hansa[facility]ARSH [address] | | | | | | [place], | | | | | | [place] [address] | | | | | | [phone] | | | | | | | | +--------+ + + + + as of this encounter Visit Diagnoses + + | Diagnosis | + + | Coronary artery disease involving [place] coronary artery of [place] heart without | | angina pectoris - Primary | + + | Post PTCA | + + | Postsurgical percutaneous transluminal coronary angioplasty status | + +"
--- OUTSIDE RECORDS SUMMARY | ~2018-12-11 | XMS | Encounter Summary ---
Demographics + + + | Address | [address] | | | [place] [address] | + + + | Home Phone [...] [place] | | | | | [address] | | + + + + + Care Team Providers + +------+ + | Care Replenisher Name | Role | Phone | + [...] | | CARDIOLOGY [address] | [address] | | | | | [place], | [place], | | | | | [place] [address] | [place] [address] | | | | | [phone] | [phone] | | | | | | | [...] Visit | Rehabilitation | MD [address] | | | | | | [place], | | | | | | [place] [address] | | | | | | [phone] | | | | | | | | +--------+ + + + + | 12/16/ | Office | Cardiac | Randy Figueroa, | | | 2018 | Visit | Rehabilitation | MD [address] | | | | | | [place], | | | | | | [place] [address] | | | | | | [phone] | | | | | | | | +--------+ + + + + | 12/21/ | Office | Cardiac | Randy Figueroa, | | | 2018 | Visit | Rehabilitation | MD [address] | | | | | | [place], | | | | | | [place] [address] | | | | | | [phone] | | | | | | | | +--------+ + + + + | 12/23/ | Office | Cardiac | Randy Figueroa, | | | 2018 | Visit | Rehabilitation | MD [address] | | | | | | [place], | | | | | | [place] [address] | | | | | | [phone] | | | | | | | | +--------+ + + + + | 12/28/ | Office | Cardiac | Randy Figueroa, | | | 2018 | Visit | Rehabilitation | MD [address] | | | | | | [place], | | | | | | [place] [address] | | | | | | [phone] | | | | | | | | +--------+ + + + + | 12/30/ | Office | Cardiac | Randy Figueroa, | | | 2018 | Visit | Rehabilitation | MD [address] | | | | | | [place], | | | | | | [place] [address] | | | | | | [phone] | | | | | | | | +--------+ + + + + | 01/04/ | Office | Cardiac | Randy Figueroa, | | | 2018 | Visit | Rehabilitation | MD [address] | | | | | | [place], | | | | | | [place] [address] | | | | | | [phone] | | | | | | | | +--------+ + + + + | 01/06/ | Office | Cardiac | Randy Figueroa, | | | 2018 | Visit | Rehabilitation | MD [address] | | | | | | [place], | | | | | | [place] [address] | | | | | | [phone] | | | | | | | | +--------+ + + + + | 01/11/ | Office | Cardiac | Randy Figueroa, | | | 2018 | Visit | Rehabilitation | MD [address] | | | | | | [place], | | | | | | [place] [address] | | | | | | [phone] | | | | | | | [...] | | | | | | [place] [address] | | | | | | [phone] | | | | | | | | +--------+ + + + + as of this encounter Visit Diagnoses Not on filein this encounter"
--- OUTSIDE RECORDS SUMMARY | ~2018-12-11 | XMS | Clinical Summary ---
Demographics + + + | Address | [address] [place] [address] [address] | | | [place] [address] | + + + | Home Phone | | + + + | Preferred Language | Unknown | + + + | Marital Status | | + + + | Protestant Affiliation | Unknown | + + + | Race | Unknown | + + + | Ethnic Group | Unknown | + + + Author + + + | Author | [facility] [employer] | + + + | Organization | [facility] [employer] | + + + | Address | Unknown | + + + | Phone | Unavailable | + + + Support + + +---------+ + | Name | Relationship | Address | Phone | + + +---------+ + | Venice Mckeon | ECON | Unknown | | + + +---------+ + Care Team Providers + +------+ + | Care Flight Coordinator Name | Role | Phone | [...] + + | Father | | | [place] | | | | (Age | | [...] RON MCKEON Date of : 1955 | [facility] | | Performing Physician: Rocio | RADIOLOGY | | [facility] | | | | [...] MV A Rohan: 0.86 m/s MV Dec [place]: 3.26 m/s2 | | | MV DecT: [...] | 21.47 mmHg TR Vmax: 2.31 m/s Auxiliary Powerplant Operator: DBS Authenticated | | | by: Rocio Barfieldcaldwell Report Date/Time: 11-04-2018 19:16:25 | | + + + + + | Procedure Note | + + | Sebastian, Rad Results In - 11/04/2018 7:20 PM PST Patient Name: Belkys MCKEON of | | : 5Accession: [id number] Physician: Rocio | | Alsamara INDICATIONS------ | [...] | 5.92 cmLVPWd: 1.01 cmLVOT Area: 3.17 gx2SCNX Diam: 2.01 cm%FS: 15.56 %EF(Teich): | | [...] mlLAESV Index (A-L): 42.88 ml/m2LAAs A2C: 24.92 [id number] A-L | | A2C: 95.08 mlLALs A2C: 5.54 cmLAAs A4C: 19.37 lb7PIAWE A-L A4C: 70.66 mlLALs | | A4C: 4.50 cmRAAs: 18.79 io5YOINU A-L: 67.38 mlRAESV MOD: 63.17 mlRALs: 4.44 | | cmTAPSE: 2.12 cmAV maxP.82 mmHgAV meanP.56 mmHgAV Vmax: 1.30 m/Emil | | Vmean: 0.88 m/Emil VTI: 25.33 cmAVA Vmax: 2.55 cm2AVA (VTI): 2.49 oy8WWZT (Vmax): | | 0.00 cm2/m2AVAI (VTI): 0.00 cm2/m2LVOT maxP.40 mmHgLVOT meanP.91 | | mmHgLVSI Dopp: 29.85 ml/m2LVSV Dopp: 63.29 mlLVOT Vmax: 1.04 m/sLVOT Vmean: 0.64 | | m/sLVOT VTI: 19.92 cmMV A Rohan: 0.86 m/sMV Dec [place]: 3.26 m/s2MV DecT: 218.32 | | msMV E Rohan: 0.71 m/sMV E/A Ratio: 0.82 MV PHT: 63.31 msMVA By PHT: 3.47 | | gy2Lmbhqa e': 0.04 m/sSeptal E/e': 15.51 Lateral e': 0.06 m/sLateral E/e': 10.91 | | RAP: 5 mmHgRVSP: 26.47 mmHgTR maxP.47 mmHgTR Vmax: 2.31 m/sSonographer: | | DBSAuthenticated by: Elinagwendolyn [facility] CenterReport Date/Time: 11-04-2018 19:16:25IMPRESSION:1. | [...] A Rohan: 0.86 m/s | |MV Dec [place]: 3.26 m/s2 | |MV DecT: 218.32 ms [...] |TR Vmax: 2.31 m/s | | | |Auxiliary Powerplant Operator: DBS | |Authenticated by: Rocio Pearl [...] | [address] | [place] [address] | | + + + + + [...] +------+-------+ + | MEDICAID | [place] | [id number] | | | [address] | | | [place] | | | | [place] | | | [place] | | | | [address] | | | BRIM STRETCHER | | | | | + +--------+ [...] | Self [birth year] | Home: | [facility] [address] | | | al/Fam | | 1956 | [phone] | [address] [place], | | | [place] | | | [address] | [place] [address] | + +--------+ +--------+ + +
--- OUTSIDE RECORDS SUMMARY | ~2018-12-11 | XMS | Encounter Summary ---
Demographics + + + | Address | [address] | | | [place] [address] | + + + | Home Phone [...] | [place] | | | | | [address] | | + + + + + Care Team Providers + +------+ + | Care Salesperson Furniture Name | Role | Phone | [...] | Specialty | Cardiac | Diagnoses | [place], | [facility] | | | Services | Rehabilitatio | Coronary | Janel | | | | Required | n | artery | ADARSH Jacobs | Rehabilitatio | | | | | disease | [address] | [address] | | | | | involving | [address] | [place] | | | | | [place] | [place], [place] | [place], [place] | | | | | coronary | [address] | [address] | | | | | artery of | Phone: | Phone: | | | | | [place] heart | [phone] | [phone] | | | | | without | Fax: | Fax: | | | | | angina | [phone] | [phone] | | | | | pectoris | | | + + + + + + + Encounter Details +--------+---------+ + + + | Date | Type | Department | Care Team | Description | +--------+---------+ + + + | 10/21/ | Office | [facility] | Randy Figueroa, | Coronary artery | | 2019 | Visit | MED CTR CARDIAC | MD [address] | disease, angina | | | | REHABILITATION [address] | [place], | presence | | | | [address] [place] | [place] [address] | unspecified, | | | | [place] [address] | [phone] | unspecified vessel | | | | [phone] | | or lesion type, | | | | | | unspecified whether | | | | | | [place] or | | | | | [...] of this encounter Progress Notes Ana Thomas, HOGSHEAD FILLER - 10/21/2018 1000 PSTFormatting of this note may be different from the original. [facility] [address] [facility] [address] Cardiac Rehab Date: 10/21/2018 Patient Information Patient Name: Bob Will Date of : 1955 Age: 62 y.o. Encounter Diagnoses Code Name Primary? I25.10 Coronary artery disease, angina presence unspecified, unspecified vessel or lesi on type, unspecified whether [place] or transplanted heart Yes Number of Visits [...] which is much higher than Ashok's norm. compliance monitor was placed. No significant change noted [...] had came directly to rehab from the [place] [facility] where changes in medication was made. [...] Visit | Rehabilitation | MD [address] | | | | | | [place], | | | | | | [place] [address] | | | | | | [phone] | | | | | | | | +--------+ + + + + | 12/16/ | Office | Cardiac | Randy Figueroa, | | | 2018 | Visit | Rehabilitation | MD [address] | | | | | | [place], | | | | | | [place] [address] | | | | | | [phone] | | | | | | | | +--------+ + + + + | 12/21/ | Office | Cardiac | Randy Figueroa, | | | 2018 | Visit | Rehabilitation | MD [address] | | | | | | [place], | | | | | | [place] [address] | | | | | | [phone] | | | | | | | | +--------+ + + + + | 12/23/ | Office | Cardiac | Randy Figueroa, | | | 2018 | Visit | Rehabilitation | MD [address] | | | | | | [place], | | | | | | [place] [address] | | | | | | [phone] | | | | | | | | +--------+ + + + + | 12/28/ | Office | Cardiac | Randy Figueroa, | | | 2018 | Visit | Rehabilitation | MD [address] | | | | | | [place], | | | | | | [place] [address] | | | | | | [phone] | | | | | | | | +--------+ + + + + | 12/30/ | Office | Cardiac | Randy Figueroa, | | | 2018 | Visit | Rehabilitation | MD [address] | | | | | | [place], | | | | | | [place] [address] | | | | | | [phone] | | | | | | | | +--------+ + + + + | 01/04/ | Office | Cardiac | Randy Figueroa, | | | 2018 | Visit | Rehabilitation | MD [address] | | | | | | [place], | | | | | | [place] [address] | | | | | | [phone] | | | | | | | | +--------+ + + + + | 01/06/ | Office | Cardiac | Randy Figueroa, | | | 2018 | Visit | Rehabilitation | MD [address] | | | | | | [place], | | | | | | [place] [address] | | | | | | [phone] | | | | | | | | +--------+ + + + + | 01/11/ | Office | Cardiac | Randy Figueroa, | | | 2018 | Visit | Rehabilitation | MD [address] | | | | | | [place], | | | | | | [place] [address] | | | | | | [phone] | | | | | | | | +--------+ + + + + | 03/24/ | Procedure | Cardiology | | | | 2018 | visit | | | | +--------+ + + + + | 03/24/ | Office | Cardiology | Jenny, | | | 2018 | Visit | | ADARSH Santo [address] | | | | | | [place], | | | | | | [place] [address] | | | | | | [phone] | | | | | | | | +--------+ + + + + as of this encounter Visit Diagnoses + + | Diagnosis | + + | Coronary artery disease, angina presence unspecified, unspecified vessel or lesion | | type, unspecified whether [place] or transplanted heart - Primary | + +"
--- OUTSIDE RECORDS SUMMARY | ~2018-12-11 | XMS | Encounter Summary ---
Demographics + + + | Address | [address] | | | [place] [address] | + + + | Home Phone [...] | [place] | | | | | [address] | | + + + + + Care Team Providers + +------+ + | Care Director Of Cath Lab Name | Role | Phone | + [...] | Specialty | Cardiac | Diagnoses | [place], | [facility] | | | Services | Rehabilitatio | Coronary | Janel | | | | Required | n | artery | ADARSH Jacobs | Rehabilitatio | | | | | disease | [address] | [address] | | | | | involving | [address] | [place] | | | | | [place] | [place], [place] | [place], [place] | | | | | coronary | [address] | [address] | | | | | artery of | Phone: | Phone: | | | | | [place] heart | [phone] | [phone] | | | | | without | Fax: | Fax: | | | | | angina | [phone] | [phone] | | | | | pectoris | | | + + + + + + + Encounter Details +--------+---------+ + + + | Date | Type | Department | Care Team | Description | +--------+---------+ + + + | 10/21/ | Office | [facility] | Randy Figueroa, | Coronary artery | | 2019 | Visit | MED CTR CARDIAC | MD [address] | disease, angina | | | | REHABILITATION [address] | [place] [place], | presence | | | | [address] [place] | [place] [address] | unspecified, | | | | [place] [address] | [phone] | unspecified vessel | | | | [phone] | | or lesion type, | | | | | | unspecified whether | | | | | | [place] or | | | | | [...] of this encounter Progress Notes Ana Thomas, PERMANENT WAVER - 10/21/2018 1000 PSTFormatting of this note may be different from the original. [facility] [address] [facility] [address] Cardiac Rehab Date: 10/21/2018 Patient Information Patient Name: Bob Will Date of : 1955 Age: 62 y.o. Encounter Diagnoses Code Name Primary? I25.10 Coronary artery disease, angina presence unspecified, unspecified vessel or lesi on type, unspecified whether [place] or transplanted heart Yes Number of Visits [...] which is much higher than Ashok's norm. construction recruiter was placed. No significant change noted from [...] to two tabs daily. also notified to [facility] Ashok. Any abnormal vital signs or [...] Visit | Rehabilitation | MD [address] | | | | | | [place], | | | | | | [place] [address] | | | | | | [phone] | | | | | | | | +--------+ + + + + | 12/16/ | Office | Cardiac | Randy Figueroa, | | | 2018 | Visit | Rehabilitation | MD [address] | | | | | | [place], | | | | | | [place] [address] | | | | | | [phone] | | | | | | | | +--------+ + + + + | 12/21/ | Office | Cardiac | Randy Figueroa, | | | 2018 | Visit | Rehabilitation | MD [address] | | | | | | [place], | | | | | | [place] [address] | | | | | | [phone] | | | | | | | | +--------+ + + + + | 12/23/ | Office | Cardiac | Randy Figueroa, | | | 2018 | Visit | Rehabilitation | MD [address] | | | | | | [place], | | | | | | [place] [address] | | | | | | [phone] | | | | | | | | +--------+ + + + + | 12/28/ | Office | Cardiac | Randy Figueroa, | | | 2018 | Visit | Rehabilitation | MD [address] | | | | | | [place], | | | | | | [place] [address] | | | | | | [phone] | | | | | | | | +--------+ + + + + | 12/30/ | Office | Cardiac | Randy Figueroa, | | | 2018 | Visit | Rehabilitation | MD [address] | | | | | | [place], | | | | | | [place] [address] | | | | | | [phone] | | | | | | | | +--------+ + + + + | 01/04/ | Office | Cardiac | Randy Figueroa, | | | 2018 | Visit | Rehabilitation | MD [address] | | | | | | [place], | | | | | | [place] [address] | | | | | | [phone] | | | | | | | | +--------+ + + + + | 01/06/ | Office | Cardiac | Randy Figueroa, | | | 2018 | Visit | Rehabilitation | MD [address] | | | | | | [place], | | | | | | [place] [address] | | | | | | [phone] | | | | | | | | +--------+ + + + + | 01/11/ | Office | Cardiac | Randy Figueroa, | | | 2018 | Visit | Rehabilitation | MD [address] | | | | | | [place], | | | | | | [place] [address] | | | | | | [phone] | | | | | | | | +--------+ + + + + | 03/24/ | Procedure | Cardiology | | | | 2018 | visit | | | | +--------+ + + + + | 03/24/ | Office | Cardiology | Jenny, | | | 2018 | Visit | | ADARSH Santo [address] | | | | | | [place], | | | | | | [place] [address] | | | | | | [phone] | | | | | | | | +--------+ + + + + as of this encounter Visit Diagnoses + + | Diagnosis | + + | Coronary artery disease, angina presence unspecified, unspecified vessel or lesion | | type, unspecified whether [place] or transplanted heart - Primary | + +"
--- OUTSIDE RECORDS SUMMARY | ~2018-12-11 | XMS | Encounter Summary ---
Demographics + + + | Address | [address] | | | [place] [address] | + + + | Home Phone [...] [place] | | | | | [address] | | + + + + + Care Team Providers + +------+ + | Care Hot Mill Observer Name | Role | Phone | + [...] | | | involving | [address] | [address] [place] | | | | | [place] | [place] | [place] | | | | | coronary | [address] | [address] | | | | | artery of | Phone: | Phone: | | | | | [place] heart | [phone] | [phone] | | | | | without | Fax: | Fax: | | | | | angina | [phone] | [phone] | | | | | pectoris | | | + + + + + + + Encounter Details +--------+---------+ + + + | Date | Type | Department | Care Team | Description | +--------+---------+ + + + | 12/09/ | Office | [facility] | Randy Figueroa, | Coronary artery | | 2019 | Visit | MED CTR CARDIAC | MD [address] | disease involving | | | | REHABILITATION [address] | [address], | [place] coronary | | | | [address] [place] | [place] [address] | artery of [place] | | | | [place] [address] | [phone] | heart without angina | | | | [phone] | | pectoris (Primary | | | [...] | | | | | | [place] [address] | | | | | | [phone] | | | | | | | | +--------+ + + + + | 12/16/ | Office | Cardiac | Randy Figueroa, | | | 2018 | Visit | Rehabilitation | MD [address] | | | | | | [place], | | | | | | [place] [address] | | | | | | [phone] | | | | | | | | +--------+ + + + + | 12/21/ | Office | Cardiac | Randy Figueroa, | | | 2018 | Visit | Rehabilitation | MD [address] | | | | | | [place], | | | | | | [place] [address] | | | | | | [phone] | | | | | | | | +--------+ + + + + | 12/23/ | Office | Cardiac | Randy Figueroa, | | | 2018 | Visit | Rehabilitation | MD [address] | | | | | | [place], | | | | | | [place] [address] | | | | | | [phone] | | | | | | | | +--------+ + + + + | 12/28/ | Office | Cardiac | Randy Figueroa, | | | 2018 | Visit | Rehabilitation | MD [address] | | | | | | [place], | | | | | | [place] [address] | | | | | | [phone] | | | | | | | | +--------+ + + + + | 12/30/ | Office | Cardiac | Randy Figueroa, | | | 2018 | Visit | Rehabilitation | MD [address] | | | | | | [place], | | | | | | [place] [address] | | | | | | [phone] | | | | | | | | +--------+ + + + + | 01/04/ | Office | Cardiac | Randy Figueroa, | | | 2018 | Visit | Rehabilitation | MD [address] | | | | | | [place], | | | | | | [place] [address] | | | | | | [phone] | | | | | | | | +--------+ + + + + | 01/06/ | Office | Cardiac | Randy Figueroa, | | | 2018 | Visit | Rehabilitation | MD [address] | | | | | | [place], | | | | | | [place] [address] | | | | | | [phone] | | | | | | | | +--------+ + + + + | 01/11/ | Office | Cardiac | Randy Figueroa, | | | 2018 | Visit | Rehabilitation | MD [address] | | | | | | [place], | | | | | | [place] [address] | | | | | | [phone] | | | | | | | | +--------+ + + + + | 03/24/ | Procedure | Cardiology | | | | 2018 | visit | | | | +--------+ + + + + | 03/24/ | Office | Cardiology | Jenny, | | | 2018 | Visit | | ADARSH Santo [address] | | | | | | [place], | | | | | | [place] [address] | | | | | | [phone] | | | | | | | | +--------+ + + + + as of this encounter Visit Diagnoses + + | Diagnosis | + + | Coronary artery disease involving [place] coronary artery of [place] heart without | | angina pectoris - Primary | + + | Post PTCA | + + | Postsurgical percutaneous transluminal coronary angioplasty status | + +"
--- OUTSIDE RECORDS SUMMARY | ~2018-12-11 | XMS | Encounter Summary ---
Demographics + + + | Address | [address] | | | [place] [address] | + + + | Home Phone [...] | [place] | | | | | [address] | | + + + + + Care Team Providers + +------+ + | Care Circuit Court Clerk Name | Role | Phone | [...] [place] | | | | | [place] | [place] | [place] | | | | | coronary | [address] | [address] | | | | | artery of | Phone: | Phone: | | | | | [place] heart | [phone] | [phone] | | | | | without | Fax: | Fax: | | | | | angina | [phone] | [phone] | | | | | pectoris | | | + + + + + + + Encounter Details +--------+---------+ + + + | Date | Type | Department | Care Team | Description | +--------+---------+ + + + | 12/07/ | Office | [facility] | Randy Figueroa, | Coronary artery | | 2019 | Visit | MED CTR CARDIAC | MD [address] | disease involving | | | | REHABILITATION [address] | [address] [place], | [place] coronary | | | | [address] [place] | [place] [address] | artery of [place] | | | | [place] [address] | [phone] | heart without angina | | | | [phone] | | pectoris (Primary | | | [...] may be different from the origin al. [facility] MED CTR CARDIAC REHABILITATION [address] [place] [address] Cardiac Rehab Date: 12/07/2018 Patient Information Patient [...] | | | | | | [place] [address] | | | | | | [phone] | | | | | | | | +--------+ + + + + | 12/16/ | Office | Cardiac | Randy Figueroa, | | | 2018 | Visit | Rehabilitation | MD [address] | | | | | | [place], | | | | | | [place] [address] | | | | | | [phone] | | | | | | | | +--------+ + + + + | 12/21/ | Office | Cardiac | Randy Figueroa, | | | 2018 | Visit | Rehabilitation | MD [address] | | | | | | [place], | | | | | | [place] [address] | | | | | | [phone] | | | | | | | | +--------+ + + + + | 12/23/ | Office | Cardiac | Randy Figueroa, | | | 2018 | Visit | Rehabilitation | MD [address] | | | | | | [place], | | | | | | [place] [address] | | | | | | [phone] | | | | | | | | +--------+ + + + + | 12/28/ | Office | Cardiac | Randy Figueroa, | | | 2018 | Visit | Rehabilitation | MD [address] | | | | | | [place], | | | | | | [place] [address] | | | | | | [phone] | | | | | | | | +--------+ + + + + | 12/30/ | Office | Cardiac | Randy Figueroa, | | | 2018 | Visit | Rehabilitation | MD [address] | | | | | | [place], | | | | | | [place] [address] | | | | | | [phone] | | | | | | | | +--------+ + + + + | 01/04/ | Office | Cardiac | Randy Figueroa, | | | 2018 | Visit | Rehabilitation | MD [address] | | | | | | [place], | | | | | | [place] [address] | | | | | | [phone] | | | | | | | | +--------+ + + + + | 01/06/ | Office | Cardiac | Randy Figueroa, | | | 2018 | Visit | Rehabilitation | MD [address] | | | | | | [place], | | | | | | [place] [address] | | | | | | [phone] | | | | | | | | +--------+ + + + + | 01/11/ | Office | Cardiac | Randy Figueroa, | | | 2018 | Visit | Rehabilitation | MD [address] | | | | | | [place], | | | | | | [place] [address] | | | | | | [phone] | | | | | | | [...] | | | | | | [place] [address] | | | | | | [phone] | | | | | | | [...]
--- OUTSIDE RECORDS SUMMARY | ~2018-12-11 | XMS | Encounter Summary ---
Demographics + + + | Address | [address] | | | [place] [address] | + + + | Home Phone | | + + + | Preferred Language | Unknown | + + + | Marital Status | | + + + | Congregational Affiliation | Unknown | + + + | Race | Unknown | + + + | Ethnic Group | Unknown | + + + Author + + + | Author | [facility] | | | and [place] | + + + | Organization | [facility] | | | and [place] | + + + | Address | Unknown | + + + | Phone | Unavailable | + + + Support + + + + + | Name | Relationship | Address | Phone | + + + + + | [place] Will | ECON | [place] | | | | | [address] | | + + + + + Care Team Providers + +------+ + | Care Application Software Engineer Name | Role | Phone | [...] | | | involving | [address] | [place] | | | | | [place] | [place] | [place] | | | | | coronary | [address] | [address] | | | | | artery of | Phone: | Phone: | | | | | [place] heart | [phone] | [phone] | | | | | without | Fax: | Fax: | | | | | angina | [phone] | [phone] | | | | | pectoris | | | + + + + + + + Encounter Details +--------+---------+ + + + | Date | Type | Department | Care Team | Description | +--------+---------+ + + + | 12/09/ | Office | [facility] | Randy Figueroa, | Coronary artery | | 2019 | Visit | MED CTR CARDIAC | MD [address] | disease involving | | | | REHABILITATION [address] | [address] [place], | [place] coronary | | | | [address] [place] | [place] [address] | artery of [place] | | | | [place] [address] | [phone] | heart without angina | | | | [phone] | | pectoris (Primary | | | [...] | | | | | | [place] [address] | | | | | | [phone] | | | | | | | | +--------+ + + + + | 12/16/ | Office | Cardiac | Randy Figueroa, | | | 2018 | Visit | Rehabilitation | MD [address] | | | | | | [place], | | | | | | [place] [address] | | | | | | [phone] | | | | | | | | +--------+ + + + + | 12/21/ | Office | Cardiac | Randy Figueroa, | | | 2018 | Visit | Rehabilitation | MD [address] | | | | | | [place], | | | | | | [place] [address] | | | | | | [phone] | | | | | | | | +--------+ + + + + | 12/23/ | Office | Cardiac | Randy Figueroa, | | | 2018 | Visit | Rehabilitation | MD [address] | | | | | | [place], | | | | | | [place] [address] | | | | | | [phone] | | | | | | | | +--------+ + + + + | 12/28/ | Office | Cardiac | Randy Figueroa, | | | 2018 | Visit | Rehabilitation | MD [address] | | | | | | [place], | | | | | | [place] [address] | | | | | | [phone] | | | | | | | | +--------+ + + + + | 12/30/ | Office | Cardiac | Randy Figueroa, | | | 2018 | Visit | Rehabilitation | MD [address] | | | | | | [place], | | | | | | [place] [address] | | | | | | [phone] | | | | | | | | +--------+ + + + + | 01/04/ | Office | Cardiac | Randy Figueroa, | | | 2018 | Visit | Rehabilitation | MD [address] | | | | | | [place], | | | | | | [place] [address] | | | | | | [phone] | | | | | | | | +--------+ + + + + | 01/06/ | Office | Cardiac | Randy Figueroa, | | | 2018 | Visit | Rehabilitation | MD [address] | | | | | | [place], | | | | | | [place] [address] | | | | | | [phone] | | | | | | | | +--------+ + + + + | 01/11/ | Office | Cardiac | Randy Figueroa, | | | 2018 | Visit | Rehabilitation | MD [address] | | | | | | [place], | | | | | | [place] [address] | | | | | | [phone] | | | | | | | | +--------+ + + + + | 03/24/ | Procedure | Cardiology | | | | 2018 | visit | | | | +--------+ + + + + | 03/24/ | Office | Cardiology | Jenny, | | | 2018 | Visit | | ADARSH Santo [address] | | | | | | [place], | | | | | | [place] [address] | | | | | | [phone] | | | | | | | | +--------+ + + + + as of this encounter Visit Diagnoses + + | Diagnosis | + + | Coronary artery disease involving [place] coronary artery of [place] heart without | | angina pectoris - Primary | + + | Post PTCA | + + | Postsurgical percutaneous transluminal coronary angioplasty status | + +"
--- OUTSIDE RECORDS SUMMARY | ~2018-12-11 | XMS | Encounter Summary ---
Demographics + + + | Address | [address] | | | [place] [address] | + + + | Home Phone [...] [place] | | | | | [address] | | + + + + + Care Team Providers + +------+ + | Care Job Press Feeder Name | Role | Phone | [...] | | | | | | [place] [address] | | | | | | [phone] | | | +--------+ + + + [...] | | | | | | [place] [address] | | | | | | [phone] | | | | | | | | +--------+ + + + + | 12/16/ | Office | Cardiac | Randy Figueroa, | | | 2018 | Visit | Rehabilitation | MD [address] | | | | | | [place], | | | | | | [place] [address] | | | | | | [phone] | | | | | | | | +--------+ + + + + | 12/21/ | Office | Cardiac | Randy Figueroa, | | | 2018 | Visit | Rehabilitation | MD [address] | | | | | | [place], | | | | | | [place] [address] | | | | | | [phone] | | | | | | | | +--------+ + + + + | 12/23/ | Office | Cardiac | Randy Figueroa, | | 2018 | Visit | Rehabilitation | MD [address] | | | | | | [place], | | | | | | [place] [address] | | | | | | [phone] | | | | | | | | +--------+ + + + + | 12/28/ | Office | Cardiac | Randy Figueroa, | | | 2018 | Visit | Rehabilitation | MD [address] | | | | | | [place], | | | | | | [place] [address] | | | | | | [phone] | | | | | | | | +--------+ + + + + | 12/30/ | Office | Cardiac | Randy Figueroa, | | | 2018 | Visit | Rehabilitation | MD [address] | | | | | | [place], | | | | | | [place] [address] | | | | | | [phone] | | | | | | | | +--------+ + + + + | 01/04/ | Office | Cardiac | Randy Figueroa, | | | 2018 | Visit | Rehabilitation | MD [address] | | | | | | [place], | | | | | | [place] [address] | | | | | | [phone] | | | | | | | | +--------+ + + + + | 01/06/ | Office | Cardiac | Randy Figueroa, | | | 2018 | Visit | Rehabilitation | MD [address] | | | | | | [place], | | | | | | [place] [address] | | | | | | [phone] | | | | | | | | +--------+ + + + + | 01/11/ | Office | Cardiac | Randy Figueroa, | | | 2018 | Visit | Rehabilitation | [address] | | | | | | [place], | | | | | | [place] [address] | | | | | | [phone] | | | | | | | [...] | | | | | | [place] [address] | | | | | | [phone] | | | | | | | | +--------+ + + + + as of this encounter Visit Diagnoses Not on filein this encounter"
--- OUTSIDE RECORDS SUMMARY | ~2018-12-11 | XMS | Encounter Summary ---
Demographics + + + | Address | [address] | | | [place] [address] | + + + | Home Phone [...] [place] | | | | | [address] | | + + + + + Care Team Providers + +------+ + | Care Police Communications Operator Name | Role | Phone | [...] | Telephone | [facility] [place] | Gary, | Medication Related | | 2018 | | CARDIOLOGY [address] | ADARSH [address] | | | | | [place], | [place], | | | | | [place] [address] | [place] [address] | | | | | [phone] | [phone] | | | | | | | [...] | | | | | | [place] [address] | | | | | | [phone] | | | | | | | | +--------+ + + + + | 12/16/ | Office | Cardiac | Randy Figueroa, | | | 2018 | Visit | Rehabilitation | MD Jav[address] Cresp[address] | | | | | | [place], | | | | | | [place] [address] | | | | | | [phone] | | | | | | | | +--------+ + + + + | 12/21/ | Office | Cardiac | Randy Figueroa, | | | 2018 | Visit | Rehabilitation | MD Jav[address] Crespo | | | | | | [place], | | | | | | [place] [address] | | | | | | [phone] | | | | | | | | +--------+ + + + + | 12/23/ | Office | Cardiac | Randy Figueroa, | | | 2018 | Visit | Rehabilitation | MD [address] | | | | | | [place], | | | | | | [place] [address] | | | | | | [phone] | | | | | | | | +--------+ + + + + | 12/28/ | Office | Cardiac | Randy Figueroa, | | | 2018 | Visit | Rehabilitation | MD [address] | | | | | | [place], | | | | | | [place] [address] | | | | | | [phone] | | | | | | | | +--------+ + + + + | 12/30/ | Office | Cardiac | Randy Figueroa, | | 2018 | Visit | Rehabilitation | MD [address] | | | | | | [place], | | | | | | [place] [address] | | | | | | [phone] | | | | | | | | +--------+ + + + + | 01/04/ | Office | Cardiac | Randy Figueroa, | | | 2018 | Visit | Rehabilitation | MD [address] | | | | | | [place], | | | | | | [place] [address] | | | | | | [phone] | | | | | | | | +--------+ + + + + | 01/06/ | Office | Cardiac | Randy Figueroa, | | | 2018 | Visit | Rehabilitation | MD [address] | | | | | | [place], | | | | | | [place] [address] | | | | | | [phone] | | | | | | | | +--------+ + + + + | 01/11/ | Office | Cardiac | Randy Figueroa, | | | 2018 | Visit | Rehabilitation | MD [address] | | | | | | [place], | | | | | | [place] [address] | | | | | | [phone] | | | | | | | | +--------+ + + + + | 03/24/ | Procedure | Cardiology | | | | 2018 | visit | | | | +--------+ + + + + | 03/24/ | Office | Cardiology | Jenny, | | | 2018 | Visit | | ADARSH Santo [address] | | | | | | [place], | | | | | | [place] [address] | | | | | | [phone] | | | | | | | [...] | starting 11/30/2018 | | | | [place] coronary | until 12/01/2019 | | | | artery of [place] | | | | | heart without angina | | | | | pectoris | | + +--------+ + + as of this encounter Visit Diagnoses + + | Diagnosis | + + | Coronary artery disease involving [place] coronary artery of [place] heart without | | angina pectoris - Primary | + +"
--- OUTSIDE RECORDS SUMMARY | ~2018-12-11 | XMS | Encounter Summary ---
Demographics + + + | Address | [address] | | | [place] [address] | + + + | Home Phone [...] | [place] | | | | | [address] | | + + + + + Care Team Providers + +------+ + | Care Digital Media Sales Consultant Name | Role | Phone [...] | | involving | [address] [place] | | | | | [place] | [place] | [place] | | | | | coronary | [address] | [address] | | | | | artery of | Phone: | Phone: | | | | | [place] heart | [phone] | [phone] | | | | | without | Fax: | Fax: | | | | | angina | [phone] | [phone] | | | | | pectoris | | | + + + + + + + Encounter Details +--------+---------+ + + + | Date | Type | Department | Care Team | Description | +--------+---------+ + + + | 11/30/ | Office | [facility] | Carolina Randy, | Coronary artery | | 2019 | Visit | MED CTR CARDIAC | MD [address] | disease involving | | | | REHABILITATION [address] | [place], | [place] coronary | | | | [address] [place] | [place] [address] | artery of [place] | | | | [place] [address] | [phone] | heart without angina | | | | [phone] | | pectoris (Primary | | | [...] may be different from the origin al. [facility] MED CTR CARDIAC REHABILITATION [address] [place] [address] Cardiac Rehab Date: 11/30/2018 Patient Information Patient Name: Bob Will Date of : 1955 Age: 63 y.o. Encounter Diagnoses Code Name Primary? I25.10 Coronary artery disease involving [place] coronary artery of [place] heart without angina pectoris Yes Z98.61 [...] | Rehabilitation | MD [address] | | | | | | [place], | | | | | | [place] [address] | | | | | | [phone] | | | | | | | | +--------+ + + + + | 12/16/ | Office | Cardiac | Randy Figueroa, | | | 2018 | Visit | Rehabilitation | MD [address] | | | | | | [place], | | | | | | [place] [address] | | | | | | [phone] | | | | | | | | +--------+ + + + + | 12/21/ | Office | Cardiac | Randy Figueroa, | | | 2018 | Visit | Rehabilitation | MD [address] | | | | | | [place], | | | | | | [place] [address] | | | | | | [phone] | | | | | | | | +--------+ + + + + | 12/23/ | Office | Cardiac | Randy Figueroa, | | | 2018 | Visit | Rehabilitation | MD [address] | | | | | | [place], | | | | | | [place] [address] | | | | | | [phone] | | | | | | | | +--------+ + + + + | 12/28/ | Office | Cardiac | Randy Figueroa, | | | 2018 | Visit | Rehabilitation | MD [address] | | | | | | [place], | | | | | | [place] [address] | | | | | | [phone] | | | | | | | | +--------+ + + + + | 12/30/ | Office | Cardiac | Randy Figueroa, | | | 2018 | Visit | Rehabilitation | MD [address] | | | | | | [place], | | | | | | [place] [address] | | | | | | [phone] | | | | | | | | +--------+ + + + + | 01/04/ | Office | Cardiac | Randy Figueroa, | | 2018 | Visit | Rehabilitation | MD [address] | | | | | | [place], | | | | | | [place] [address] | | | | | | [phone] | | | | | | | | +--------+ + + + + | 01/06/ | Office | Cardiac | Randy Figueroa, | | | 2018 | Visit | Rehabilitation | MD Jav[address]resp[address] | | | | | | [place], | | | | | | [place] [address] | | | | | | [phone] | | | | | | | | +--------+ + + + + | 01/11/ | Office | Cardiac | Randy Figueroa, | | | 2018 | Visit | Rehabilitation | [address] | | | | | | [place], | | | | | | [place] [address] | | | | | | [phone] | | | | | | | | +--------+ + + + + | 03/24/ | Procedure | Cardiology | | | | 2018 | visit | | | | +--------+ + + + + | 03/24/ | Office | Cardiology | Jenny, | | | 2018 | Visit | | HansaADARSH [address] | | | | | | [place], | | | | | | [place] [address] | | | | | | [phone] | | | | | | | | +--------+ + + + + as of this encounter Visit Diagnoses + + | Diagnosis | + + | Coronary artery disease involving [place] coronary artery of [place] heart without | | angina pectoris - Primary | + + | Post PTCA | + + | Postsurgical percutaneous transluminal coronary angioplasty status | + +"
--- OUTSIDE RECORDS SUMMARY | ~2018-12-11 | XMS | Clinical Summary ---
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 Patient was difficult intubation at outside roving tester laboratory. | | -secretions improving, cough strong -s/p [...] stayExtubated 03/22, started on | | [place] [id number] infusion begun 03/22 for daily goal -1 [...] | | | INC | | | [id number] | | Tejal Pettit MD | | | | | | X / | | | | | | | | /[address] | | | | | | | | [address] | + +------+--------+ +--------+--------+--------+ Results Not on [...] | PPO | [phone] | [address] [address] [place] | | | CROSS | | | [address] | [place] [address] | | | [employer]ER[employer] | | | | | | | L | | | | | + +--------+ +--------+ + + | MEDICAID [place] | OHP | [id number] | Medica | [phone] | [address] [address] | | | PLUS | | id | [phone] | [place] [address] | | | OPEN | | | [...] | Self | [birth year] | Home: | [address] | | | al/Fam | | 1956 | [phone] | [address] [place] | | | taiwo | | | [phone] | [phone] | + +--------+ +--------+ + +
--- OUTSIDE RECORDS SUMMARY | ~2018-12-11 | XMS | Encounter Summary ---
Demographics + + + | Address | [address] | | | [place] [address] | + + + | Home Phone [...] | [place] | | | | | [address] | | + + + + + Care Team Providers + +------+ + | Care Landscape Horticulture Instructor Name | Role | Phone | [...] | | | involving | [address] [place] | | | | | [place] | [place], [place] | [place] | | | | | coronary | [address] | [address] | | | | | artery of | Phone: | Phone: | | | | | [place] heart | [phone] | [phone] | | | | | without | Fax: | Fax: | | | | | angina | [phone] | [phone] | | | | | pectoris | | | + + + + + + + Encounter Details +--------+---------+ + + + | Date | Type | Department | Care Team | Description | +--------+---------+ + + + | 10/12/ | [facility] | Randy Figueroa, | Coronary artery | | 2019 | Visit | MED CTR CARDIAC | MD [address] | disease, angina | | | | REHABILITATION [address] [place], | presence | | | | [address] [place] | [place] [address] | unspecified, | | | | [place] [address] | [phone] | unspecified vessel | | | | [phone] | | or lesion type, | | [...] note may be different from the origin [facility] CTR CARDIAC REHABILITATION [address] [place] [address] Cardiac Rehab Date: 10/12/2018 Patient Information Patient [...] Gael Woo, 10/12/2018 14:13 Patient Name: Bob iWll/: 1955/ this enco unter Plan of Treatment [...] | | | | | | [place] [address] | | | | | | [phone] | | | | | | | | +--------+ + + + + | 12/16/ | Office | Cardiac | Randy Figueroa, | | | 2018 | Visit | Rehabilitation | MD [address] | | | | | | [place], | | | | | | [place] [address] | | | | | | [phone] | | | | | | | | +--------+ + + + + | 12/21/ | Office | Cardiac | Randy Figueroa, | | | 2018 | Visit | Rehabilitation | MD [address] | | | | | | [place], | | | | | | [place] [address] | | | | | | [phone] | | | | | | | | +--------+ + + + + | 12/23/ | Office | Cardiac | Randy Figueroa, | | | 2018 | Visit | Rehabilitation | MD [address] | | | | | | [place], | | | | | | [place] [address] | | | | | | [phone] | | | | | | | | +--------+ + + + + | 12/28/ | Office | Cardiac | Randy Figueroa, | | | 2018 | Visit | Rehabilitation | MD [address] | | | | | | [place], | | | | | | [place] [address] | | | | | | [phone] | | | | | | | | +--------+ + + + + | 12/30/ | Office | Cardiac | Randy Figueroa, | | | 2018 | Visit | Rehabilitation | MD [address] | | | | | | [place], | | | | | | [place] [address] | | | | | | [phone] | | | | | | | | +--------+ + + + + | 01/04/ | Office | Cardiac | Randy Figueroa, | | | 2018 | Visit | Rehabilitation | MD [address] | | | | | | [place], | | | | | | [place] [address] | | | | | | [phone] | | | | | | | | +--------+ + + + + | 01/06/ | Office | Cardiac | Randy Figueroa, | | | 2018 | Visit | Rehabilitation | MD [address] | | | | | | [place], | | | | | | [place] [address] | | | | | | [phone] | | | | | | | | +--------+ + + + + | 01/11/ | Office | Cardiac | Randy Figueroa, | | | 2018 | Visit | Rehabilitation | MD [address] | | | | | | [place], | | | | | | [place] [address] | | | | | | [phone] | | | | | | | | +--------+ + + + + | 03/24/ | Procedure | Cardiology | | | | 2018 | visit | | | | +--------+ + + + + | 03/24/ | Office | Cardiology | Jenny, | | | 2018 | Visit | | [place], STATE FEDERAL RELATIONS DEPUTY DIRECTOR [address] | | | | | | [place], | | | | | | [place] [address] | | | | | | [phone] | | | | | | | [...]
--- OUTSIDE RECORDS SUMMARY | ~2018-12-11 | XMS | Encounter Summary ---
Demographics + + + | Address | [address] | | | [place] [address] | + + + | Home Phone [...] | [place] | | | | | [address] | | + + + + + Care Team Providers + +------+ + | Care In Home Caregiver Name | Role | Phone | [...] | | | involving | [address] [place] | | | | | [place] | [place] | [place] | | | | | coronary | [address] | [address] | | | | | artery of | Phone: | Phone: | | | | | [place] heart | [phone] | [phone] | | | | | without | Fax: | Fax: | | | | | angina | [phone] | [phone] | | | | | pectoris | | | + + + + + + + Encounter Details +--------+---------+ + + + | Date | Type | Department | Care Team | Description | +--------+---------+ + + + | 11/25/ | Office | [facility] | Carolina Randy, | Coronary artery | | 2019 | Visit | MED CTR CARDIAC | MD [address] | disease involving | | | | REHABILITATION [address] | [address] [place], | [place] coronary | | | | [address] [place] | [place] [address] | artery of [place] | | | | [place] [address] | [phone] | heart without angina | | | | [phone] | | pectoris (Primary | | | [...] CTR CARDIAC REHABILITATION [address] [place] [address] Cardiac Rehab Date: 11/25/2018 Patient Information Patient [...] Visit | Rehabilitation | MD [address] | | | | | | [place], | | | | | | [place] [address] | | | | | | [phone] | | | | | | | | +--------+ + + + + | 12/16/ | Office | Cardiac | Randy Figueroa, | | | 2018 | Visit | Rehabilitation | MD [address] | | | | | | [place], | | | | | | [place] [address] | | | | | | [phone] | | | | | | | | +--------+ + + + + | 12/21/ | Office | Cardiac | Randy Figueroa, | | | 2018 | Visit | Rehabilitation | MD [address] | | | | | | [place], | | | | | | [place] [address] | | | | | | [phone] | | | | | | | | +--------+ + + + + | 12/23/ | Office | Cardiac | Randy Figueroa, | | | 2018 | Visit | Rehabilitation | MD [address] | | | | | | [place], | | | | | | [place] [address] | | | | | | [phone] | | | | | | | | +--------+ + + + + | 12/28/ | Office | Cardiac | Randy Figueroa, | | | 2018 | Visit | Rehabilitation | MD [address] | | | | | | [place], | | | | | | [place] [address] | | | | | | [phone] | | | | | | | | +--------+ + + + + | 12/30/ | Office | Cardiac | Randy Figueroa, | | | 2018 | Visit | Rehabilitation | MD [address] | | | | | | [place], | | | | | | [place] [address] | | | | | | [phone] | | | | | | | | +--------+ + + + + | 01/04/ | Office | Cardiac | Randy Figueroa, | | | 2018 | Visit | Rehabilitation | MD [address] | | | | | | [place], | | | | | | [place] [address] | | | | | | [phone] | | | | | | | | +--------+ + + + + | 01/06/ | Office | Cardiac | Randy Figueroa, | | | 2018 | Visit | Rehabilitation | MD Jav[address]resp[address] | | | | | | [place], | | | | | | [place] [address] | | | | | | [phone] | | | | | | | | +--------+ + + + + | 01/11/ | Office | Cardiac | Randy Figueroa, | | | 2018 | Visit | Rehabilitation | MD [address]av[address]respo | | | | | | [place], | | | | | | [place] [address] | | | | | | [phone] | | | | | | | | +--------+ + + + + | 03/24/ | Procedure | Cardiology | | | | 2018 | visit | | | | +--------+ + + + + | 03/24/ | Office | Cardiology | [place], | | | 2019 | Visit | | ADARSH Santo [address] | | | | | | [place], | | | | | | [place] [address] | | | | | | [phone] | | | | | | | | +--------+ + + + + as of this encounter Visit Diagnoses + + | Diagnosis | + + | Coronary artery disease involving [place] coronary artery of [place] heart without | | angina pectoris - Primary | + + | Post PTCA | + + | Postsurgical percutaneous transluminal coronary angioplasty status | + +"
--- OUTSIDE RECORDS SUMMARY | ~2018-12-11 | XMS | Encounter Summary ---
Demographics + + + | Address | [address] [place] [address] [address] | | | [place] [address] | + + + | Home Phone [...] + + + | Author | [employer]andra [employer] | + + + | Organization | [facility] [employer] | + + + | Address | Unknown | + + + | Phone | Unavailable | + + + Support + + +---------+ + | Name | Relationship | Address | Phone | + + +---------+ + | Venice Mckeon | ECON | Unknown | | + + +---------+ + Care Team Providers + +------+ + | Care Senior Editor Name | Role | Phone | [...] HF chronicity, | | | | | [address] | unspecified heart | | | | [...] RON MCKEON Date of : 1955 | [facility] | | Performing Physician: Rocio | RADIOLOGY | | [facility] | | | | | [...] MV A Rohan: 0.86 m/s MV Dec Walsh: 3.26 m/s2 | | | MV DecT: [...] | 21.47 mmHg TR Vmax: 2.31 m/s Bottle Carrier: ANJANA Authenticated | | | by: [facility] Report Date/Time: 11-04-2018 19:16:25 | | + + + + + | Procedure Note | + + | Sebastian, Rad Results In - 11/04/2018 7:20 PM PST Patient Name: Belkys MCKEON of | | : 5Accession: [id number] Physician: Rocio | | [facility] INDICATIONS------ | | -----CHFCONCLUSIONS 1. [...] | 5.92 cmLVPWd: 1.01 cmLVOT Area: 3.17 [id number] Diam: 2.01 cm%FS: 15.56 %EF(Teich): | | [...] mlLAESV Index (A-L): 42.88 ml/m2LAAs A2C: 24.92 [id number] A-L | | A2C: 95.08 mlLALs A2C: 5.54 cmLAAs A4C: 19.37 cc2UZBER A-L A4C: 70.66 mlLALs | | A4C: 4.50 cmRAAs: 18.79 [id number] A-L: 67.38 mlRAESV MOD: 63.17 mlRALs: 4.44 | | cmTAPSE: 2.12 cmAV maxP.82 mmHgAV meanP.56 mmHgAV Vmax: 1.30 m/Emil | | Vmean: 0.88 m/Emil VTI: 25.33 cmAVA Vmax: 2.55 cm2AVA (VTI): 2.49 cl9BOLB (Vmax): | | 0.00 cm2/m2AVAI (VTI): 0.00 cm2/m2LVOT maxP.40 mmHgLVOT meanP.91 | | mmHgLVSI Dopp: 29.85 ml/m2LVSV Dopp: 63.29 mlLVOT Vmax: 1.04 m/sLVOT Vmean: 0.64 | | m/sLVOT VTI: 19.92 cmMV A Rohan: 0.86 m/sMV Dec Walsh: 3.26 m/s2MV DecT: 218.32 | | msMV E Rohan: 0.71 m/sMV E/A Ratio: 0.82 MV PHT: 63.31 msMVA By PHT: 3.47 | | bz1Rkhisu e': 0.04 m/sSeptal E/e': 15.51 Lateral e': 0.06 m/sLateral E/e': 10.91 | | RAP: 5 mmHgRVSP: 26.47 mmHgTR maxP.47 mmHgTR Vmax: 2.31 m/sSonographer: | | DBSAuthenticated by: M[facility] Date/Time: 11-04-2018 19:16:25IMPRESSION:1. | | [...] A Rohan: 0.86 m/s | |MV Dec Walsh: 3.26 m/s2 | |MV DecT: 218.32 ms [...] |TR Vmax: 2.31 m/s | | | |Bottle Carrier: DBS | |Authenticated by: Rocio Pearl | [...] | + + + + + | [facility] | [address] | [place] [address] | | + + + + + in this encounter Visit Diagnoses + + | Diagnosis | + + | Congestive heart failure, unspecified HF chronicity, unspecified heart failure type | | (HCC) | + +"
--- OUTSIDE RECORDS SUMMARY | ~2018-12-11 | XMS | Encounter Summary ---
Demographics + + + | Address | [address] | | | [place] [address] | + + + | Home Phone [...] | [place] | | | | | [address] | | + + + + + Care Team Providers + +------+ + | Care Wire Dropper Name | Role | Phone | + [...] | | | involving | [address] [place] | | | | | [place] | [place] | [place] | | | | | coronary | [address] | [address] | | | | | artery of | Phone: | Phone: | | | | | [place] heart | [phone] | [phone] | | | | | without | Fax: | Fax: | | | | | angina | [phone] | [phone] | | | | | pectoris | | | + + + + + + + Encounter Details +--------+---------+ + + + | Date | Type | Department | Care Team | Description | +--------+---------+ + + + | 09/30/ | Office | [facility] | Carolina Lindarisa, | Coronary artery | | 2019 | Visit | MED CTR CARDIAC | MD [address] | disease, angina | | | | REHABILITATION [address] [place], | presence | | | | [address] [place] | [place] [address] | unspecified, | | | | [place] [address] | [phone] | unspecified vessel | | | | [phone] | | or lesion type, | | | | | | unspecified whether | | | | | | tang[place]q or | | | | | | [...] note may be different from the origin txFletcher [facility] CARDIAC REHABILITATION [address] [place] [address] Cardiac Rehab 60 Day Review Date: 09/30/2018 Patient Information Patient Name: Bob Will Date of : 1955 Age: 62 y.o. Referring Provider: Radny Figueroa MD Encounter Diagnoses Code Name Primary? 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 [...] Healthy Dietary Education Date: 08/03/18 -Referral to Regulator Tester: Date: -DVD: Healthy Eating For Life Date: [...] exercise until stable. Date: Range: -Referral to Psychiatric Orderly Date: Education Points listed below- Date Completed: [...] | | | | | | [place] [address] | | | | | | [phone] | | | | | | | | +--------+ + + + + | 12/16/ | Office | Cardiac | Randy Figueroa, | | | 2018 | Visit | Rehabilitation | MD [address] | | | | | | [place], | | | | | | [place] [address] | | | | | | [phone] | | | | | | | | +--------+ + + + + | 12/21/ | Office | Cardiac | Randy Figueroa, | | | 2018 | Visit | Rehabilitation | MD [address] | | | | | | [place], | | | | | | [place] [address] | | | | | | [phone] | | | | | | | | +--------+ + + + + | 12/23/ | Office | Cardiac | Randy Figueroa, | | | 2018 | Visit | Rehabilitation | MD [address] | | | | | | [place], | | | | | | [place] [address] | | | | | | [phone] | | | | | | | | +--------+ + + + + | 12/28/ | Office | Cardiac | Randy Figueroa, | | | 2018 | Visit | Rehabilitation | MD [address] | | | | | | [place], | | | | | | [place] [address] | | | | | | [phone] | | | | | | | | +--------+ + + + + | 12/30/ | Office | Cardiac | Randy Figueroa, | | | 2018 | Visit | Rehabilitation | MD [address] | | | | | | [place], | | | | | | [place] [address] | | | | | | [phone] | | | | | | | | +--------+ + + + + | 01/04/ | Office | Cardiac | Randy Figueroa, | | | 2018 | Visit | Rehabilitation | MD [address] | | | | | | [place], | | | | | | [place] [address] | | | | | | [phone] | | | | | | | | +--------+ + + + + | 01/06/ | Office | Cardiac | Randy Figueroa, | | | 2018 | Visit | Rehabilitation | MD [address] | | | | | | [place], | | | | | | [place] [address] | | | | | | [phone] | | | | | | | | +--------+ + + + + | 01/11/ | Office | Cardiac | Randy Figueroa, | | | 2018 | Visit | Rehabilitation | MD Javid Crespo | | | | | | [place], | | | | | | [place] [address] | | | | | | [phone] | | | | | | | | +--------+ + + + + | 03/24/ | Procedure | Cardiology | | | | 2018 | visit | | | | +--------+ + + + + | 03/24/ | Office | Cardiology | Jenny, | | | 2018 | Visit | | [address] | | | | | | [address] [place], | | | | | | [place] [address] | | | | | | [phone] | | | | | | | | +--------+ + + + + as of this encounter Visit Diagnoses + + | Diagnosis | + + | Coronary artery disease, angina presence unspecified, unspecified vessel or lesion | | type, unspecified whether tangirnaq or transplanted heart - Primary | + + | Post PTCA | + + | Postsurgical percutaneous transluminal coronary angioplasty status | + +
--- OUTSIDE RECORDS SUMMARY | ~2018-12-11 | XMS | Encounter Summary ---
Demographics + + + | Address | [address] | | | [place] [address] | + + + | Home Phone [...] | [place] | | | | | [address] | | + + + + + Care Team Providers + +------+ + | Care Assembler Production Line Name | Role | Phone | [...] | | | involving | [address] [place] | | | | | [place] | [place], [place] | [place], [place] | | | | | coronary | [address] | [address] | | | | | artery of | Phone: | Phone: | | | | | [place] heart | [phone] | [phone] | | | | | without | Fax: | Fax: | | | | | angina | [phone] | [phone] | | | | | pectoris | | | + + + + + + + Encounter Details +--------+---------+ + + + | Date | Type | Department | Care Team | Description | +--------+---------+ + + + | 11/18/ | Office | [facility] | Randy Figueroa, | Coronary artery | | 2019 | Visit | MED CTR CARDIAC | [address] | disease involving | | | | REHABILITATION [address] | [place], | [place] coronary | | | | [address] [place] | [place] [address] | artery of [place] | | | | [place] [address] | [phone] | heart without angina | | | | [phone] | | pectoris (Primary | | | [...] note may be different from the origin [facility] CARDIAC REHABILITATION [address] [facility] [address] Cardiac Rehab Date: 11/18/2018 Patient Information Patient Name: Bob Will Date of : 1955 Age: 63 y.o. Encounter Diagnoses Code Name Primary? I25.10 Coronary artery disease involving [place] coronary artery of [place] heart without angina pectoris Yes Z98.61 Post [...] | | | | | | [place] [address] | | | | | | [phone] | | | | | | | | +--------+ + + + + | 12/16/ | Office | Cardiac | Randy Figueroa, | | | 2018 | Visit | Rehabilitation | MD [address] | | | | | | [place], | | | | | | [place] [address] | | | | | | [phone] | | | | | | | | +--------+ + + + + | 12/21/ | Office | Cardiac | Randy Figueroa, | | | 2018 | Visit | Rehabilitation | MD [address] | | | | | | [place], | | | | | | [place] [address] | | | | | | [phone] | | | | | | | | +--------+ + + + + | 12/23/ | Office | Cardiac | Randy Figueroa, | | | 2018 | Visit | Rehabilitation | MD [address] | | | | | | [place], | | | | | | [place] [address] | | | | | | [phone] | | | | | | | | +--------+ + + + + | 12/28/ | Office | Cardiac | Randy Figueroa, | | | 2018 | Visit | Rehabilitation | MD [address] | | | | | | [place], | | | | | | [place] [address] | | | | | | [phone] | | | | | | | | +--------+ + + + + | 12/30/ | Office | Cardiac | Randy Figueroa, | | | 2018 | Visit | Rehabilitation | MD [address] | | | | | | [place], | | | | | | [place] [address] | | | | | | [phone] | | | | | | | | +--------+ + + + + | 01/04/ | Office | Cardiac | Randy Figueroa, | | | 2018 | Visit | Rehabilitation | MD [address] | | | | | | [place], | | | | | | [place] [address] | | | | | | [phone] | | | | | | | | +--------+ + + + + | 01/06/ | Office | Cardiac | Randy Figueroa, | | | 2018 | Visit | Rehabilitation | MD [address] | | | | | | [place], | | | | | | [place] [address] | | | | | | [phone] | | | | | | | | +--------+ + + + + | 01/11/ | Office | Cardiac | Randy Figueroa, | | | 2018 | Visit | Rehabilitation | MD [address] | | | | | | [place], | | | | | | [place] [address] | | | | | | [phone] | | | | | | | | +--------+ + + + + | 03/24/ | Procedure | Cardiology | | | | 2018 | visit | | | | +--------+ + + + + | 03/24/ | Office | Cardiology | Jenny, | | | 2018 | Visit | | [address] | | | | | | [place], | | | | | | [place] [address] | | | | | | [phone] | | | | | | | | +--------+ + + + + as of this encounter Visit Diagnoses + + | Diagnosis | + + | Coronary artery disease involving [place] coronary artery of [place] heart without | | angina pectoris - Primary | + + | Post PTCA | + + | Postsurgical percutaneous transluminal coronary angioplasty status | + +"
--- OUTSIDE RECORDS SUMMARY | ~2018-12-11 | XMS | Encounter Summary ---
Demographics + + + | Address | [address] | | | [place] [address] | + + + | Home Phone [...] [place] | | | | | [address] | | + + + + + Care Team Providers + +------+ + | Care Interior Design Professor Name | Role | Phone | + +------+ + | Young Haque DO | PCP | | + +------+ + Encounter Details +--------+ + + + + | Date | Type | Department | Care Team | Description | +--------+ + + + + | 03/19/ | Abstract | [facility] | Jenny, | | | 2018 | | CARDIOLOGY [address] | Hansa JD EDWARDS DEVELOPER [address] | | | | | [place], | [place], | | | | | [place] [address] | [place] [address] | | | | | [phone] | [phone] | | | | | | | [...] Visit | Rehabilitation | MD [address] [place] | | | | | | [place], | | | | | | [place] [address] | | | | | | [phone] | | | | | | | | +--------+ + + + + | 12/16/ | Office | Cardiac | Randy Figueroa, | | | 2018 | Visit | Rehabilitation | MD [address] [place] | | | | | | [place], | | | | | | [place] [address] | | | | | | [phone] | | | | | | | | +--------+ + + + + | 12/21/ | Office | Cardiac | Randy Figueroa, | | | 2018 | Visit | Rehabilitation | MD [address] [place] | | | | | | [place], | | | | | | [place] [address] | | | | | | [phone] | | | | | | | | +--------+ + + + + | 12/23/ | Office | Cardiac | Randy Figueroa, | | | 2018 | Visit | Rehabilitation | MD [address] [place] | | | | | | [place], | | | | | | [place] [address] | | | | | | [phone] | | | | | | | | +--------+ + + + + | 12/28/ | Office | Cardiac | Randy Figueroa, | | | 2018 | Visit | Rehabilitation | MD [address] [place] | | | | | | [place], | | | | | | [place] [address] | | | | | | [phone] | | | | | | | | +--------+ + + + + | 12/30/ | Office | Cardiac | Randy Figueroa, | | | 2018 | Visit | Rehabilitation | MD [address] [place] | | | | | | [place], | | | | | | [place] [address] | | | | | | [phone] | | | | | | | | +--------+ + + + + | 01/04/ | Office | Cardiac | Randy Figueroa, | | | 2018 | Visit | Rehabilitation | MD [address] | | | | | | [place], | | | | | | [place] [address] | | | | | | [phone] | | | | | | | | +--------+ + + + + | 01/06/ | Office | Cardiac | Randy Figueroa, | | | 2018 | Visit | Rehabilitation | [address] [place] | | | | | | [place], | | | | | | [place] [address] | | | | | | [phone] | | | | | | | | +--------+ + + + + | 01/11/ | Office | Cardiac | Randy Figueroa, | | | 2018 | Visit | Rehabilitation | [address] | | | | | | [place], | | | | | | [place] [address] | | | | | | [phone] | | | | | | | | +--------+ + + + + | 03/24/ | Procedure | Cardiology | | | | 2018 | visit | | | | +--------+ + + + + | 03/24/ | Office | Cardiology | Jenny, | | | 2018 | Visit | | AD[address]SH S[address] | | | | | | [place], | | | | | | [place] [address] | | | | | | [phone] | | | | | | | [...]
--- OUTSIDE RECORDS SUMMARY | ~2018-12-11 | XMS | Encounter Summary ---
Demographics + + + | Address | [address] | | | [place] [address] | + + + | Home Phone [...] | [place] | | | | | [address] | | + + + + + [...] | | | involving | [address] [place] | | | | | [place] | [address] | [place] | | | | | coronary | [address] | [address] | | | | | artery of | Phone: | Phone: | | | | | [place] heart | [phone] | [phone] | | | | | without | Fax: | Fax: | | | | | angina | [phone] | [phone] | | | | | pectoris | | | + + + + + + + Encounter Details +--------+---------+ + + + | Date | Type | Department | Care Team | Description | +--------+---------+ + + + | 11/09/ | Office | [facility] | Randy Figueroa, | Coronary artery | | 2019 | Visit | MED CTR CARDIAC | MD [address] | disease involving | | | | REHABILITATION [address] | [place], | [place] coronary | | | | [address] [place] | [place] [address] | artery of [place] | | | | [place] [address] | [phone] | heart without angina | | | | [phone] | | pectoris (Primary | | | [...] CTR CARDIAC REHABILITATION [address] [place] [address] Cardiac Rehab Date: 11/09/2018 Patient Information Patient Name: Bob Will Date of : 1955 Age: 63 y.o. Encounter Diagnoses Code Name Primary? I25.10 Coronary artery disease involving [place] coronary artery of [place] heart without angina pectoris Yes Number of [...] | 12/14/ | Office | Cardiac | Rnady Figueroa, | | | 2018 | Visit | Rehabilitation | MD Jav[address] Cresp[address] | | | | | | [place], | | | | | | [place] [address] | | | | | | [phone] | | | | | | | | +--------+ + + + + | 12/16/ | Office | Cardiac | Randy Figueroa, | | | 2018 | Visit | Rehabilitation | MD [address] | | | | | | [place], | | | | | | [place] [address] | | | | | | [phone] | | | | | | | | +--------+ + + + + | 12/21/ | Office | Cardiac | Randy Figueroa, | | | 2018 | Visit | Rehabilitation | MD [address] | | | | | | [place], | | | | | | [place] [address] | | | | | | [phone] | | | | | | | | +--------+ + + + + | 12/23/ | Office | Cardiac | Randy Figueroa, | | | 2018 | Visit | Rehabilitation | MD [address] | | | | | | [place], | | | | | | [place] [address] | | | | | | [phone] | | | | | | | | +--------+ + + + + | 12/28/ | Office | Cardiac | Randy Figueroa, | | | 2018 | Visit | Rehabilitation | MD [address] | | | | | | [place], | | | | | | [place] [address] | | | | | | [phone] | | | | | | | | +--------+ + + + + | 12/30/ | Office | Cardiac | Randy Figueroa, | | | 2018 | Visit | Rehabilitation | MD [address] | | | | | | [place], | | | | | | [place] [address] | | | | | | [phone] | | | | | | | | +--------+ + + + + | 01/04/ | Office | Cardiac | Randy Figueroa, | | | 2018 | Visit | Rehabilitation | MD [address] | | | | | | [place], | | | | | | [place] [address] | | | | | | [phone] | | | | | | | | +--------+ + + + + | 01/06/ | Office | Cardiac | Randy Figueroa, | | | 2018 | Visit | Rehabilitation | MD [address] | | | | | | [place], | | | | | | [place] [address] | | | | | | [phone] | | | | | | | | +--------+ + + + + | 01/11/ | Office | Cardiac | Randy Figueroa, | | | 2018 | Visit | Rehabilitation | MD [address] | | | | | | [place], | | | | | | [place] [address] | | | | | | [phone] | | | | | | | [...] | | | | | | [place] [address] | | | | | | [phone] | | | | | | | | +--------+ + + + + as of this encounter Visit Diagnoses + + | Diagnosis | + + | Coronary artery disease involving [place] coronary artery of [place] heart without | | angina pectoris - Primary | + +"
--- OUTSIDE RECORDS SUMMARY | ~2018-12-11 | XMS | Encounter Summary ---
Demographics + + + | Address | [address] | | | [place] [address] | + + + | Home Phone [...] [place] | | | | | [address] | | + + + + + Care Team Providers + +------+ + | Care Talend Etl Developer Name | Role | Phone | [...] | Telephone | [facility] [place] | [place], | Medication Related | | 2018 | | CARDIOLOGY [address] | [address]SH [address] | | | | | [place], | [place], | | | | | [place] [address] | [place] [address] | | | | | [phone] | [phone] | | | | | | | [...] | | | | | | [place] [address] | | | | | | [phone] | | | | | | | | +--------+ + + + + | 12/16/ | Office | Cardiac | Randy Figueroa, | | | 2018 | Visit | Rehabilitation | MD Jav[address]respo | | | | | | [place], | | | | | | [place] [address] | | | | | | [phone] | | | | | | | | +--------+ + + + + | 12/21/ | Office | Cardiac | Randy Figueroa, | | | 2018 | Visit | Rehabilitation | MD Jav[address] | | | | | | [place], | | | | | | [place] [address] | | | | | | [phone] | | | | | | | | +--------+ + + + + | 12/23/ | Office | Cardiac | Randy Figueroa, | | | 2018 | Visit | Rehabilitation | MD [address] [place] | | | | | | [place], | | | | | | [place] [address] | | | | | | [phone] | | | | | | | | +--------+ + + + + | 12/28/ | Office | Cardiac | Randy Figueroa, | | | 2018 | Visit | Rehabilitation | MD [address] [place] | | | | | | [place], | | | | | | [place] [address] | | | | | | [phone] | | | | | | | | +--------+ + + + + | 12/30/ | Office | Cardiac | Randy Figueroa, | | 2018 | Visit | Rehabilitation | MD [address] [place] | | | | | | [place], | | | | | | [place] [address] | | | | | | [phone] | | | | | | | | +--------+ + + + + | 01/04/ | Office | Cardiac | Randy Figueroa, | | | 2018 | Visit | Rehabilitation | MD [address] [place] | | | | | | [place], | | | | | | [place] [address] | | | | | | [phone] | | | | | | | | +--------+ + + + + | 01/06/ | Office | Cardiac | Randy Figueroa, | | | 2018 | Visit | Rehabilitation | MD [address] [place] | | | | | | [place], | | | | | | [place] [address] | | | | | | [phone] | | | | | | | | +--------+ + + + + | 01/11/ | Office | Cardiac | Randy Figueroa, | | | 2018 | Visit | Rehabilitation | MD [address] [place] | | | | | | [place], | | | | | | [place] [address] | | | | | | [phone] | | | | | | | | +--------+ + + + + | 03/24/ | Procedure | Cardiology | | | | 2018 | visit | | | | +--------+ + + + + | 03/24/ | Office | Cardiology | Jenny, | | | 2018 | Visit | | ADARSH Santo [address] | | | | | | [place], | | | | | | [place] [address] | | | | | | [phone] | | | | | | | [...] | starting 11/30/2018 | | | | [place] coronary | until 12/01/2019 | | | | artery of [place] | | | | | heart without angina | | | | | pectoris | | + +--------+ + + as of this encounter Visit Diagnoses + + | Diagnosis | + + | Coronary artery disease involving [place] coronary artery of [place] heart without | | angina pectoris - Primary | + +"
--- OUTSIDE RECORDS SUMMARY | ~2018-12-11 | XMS | Encounter Summary ---
Demographics + + + | Address | [address] | | | [place] [address] | + + + | Home Phone [...] | [place] | | | | | [address] | | + + + + + Care Team Providers + +------+ + | Care Aeroplane Pilot Name | Role | Phone | [...] | | Atherosclero | MD Lauro | [address] [place] [address] | | | | | tic heart | [address] | [address] | | | | | disease of | [address] | [place], | | | | | [place] | [place], | [place] [address] | | | | | coronary | [place] | Phone: | | | | | artery | [address] | [phone] | | | | | without | Phone: | Fax: | | | | | angina | [phone] | [phone] | | | | | pectoris ST | Fax: | | | | | | elevation | [phone] | | | | | | (STEMI) [...] | Office | [facility] [place] | [place], | PAD (peripheral | | 2019 | Visit | CARDIOLOGY [address] | Hansa, TAPE DECK INSTALLER [address] | artery disease) | | | | [place], | [place], | ([facility]) (Primary Dx); | | | | [place] [address] | [place] [address] | Benign essential | | | | [phone] | [phone] | hypertension; | | | | | | Fatigue, unspecified | | | | | | type; Acute | | | | | | anterior wall [place] | | | | | | (HCC); Coronary | | | | | | artery disease | | | | | | involving [place] | | | | | | coronary artery of | | | | | | [place] heart without | | | | | [...] appendage thrombus, recent status post stents to, QUALITY ASSURANCE TESTER-D placement in [facility] o n 10/17/2017.Heis being [...] retention since the heart failure team in [place] told him to continue taking his furosemide on a daily basis. He will do a blood pressure log and bring it to his next appoin [facility]. Since that time, he was seen [...] least 30 minutes every day at the [facility] in [place] with h is walker. He feels better [...] anterior wall [place] Coronary artery disease involving [place] coronary artery of [place] heart without angina pectoris Ischemic cardiomyopathy QUALITY ASSURANCE TESTER-D (AICD) [employer] 10/16/17 [facility] Stecker Implantable defibrillator reprogramming/check [...] spray QNASL 80 mcg/actuation nasal aerosol spray Byron 2 sprays every day by intranasal route at bedtime. Cholecalciferol (VITAMIN D-3) 32295 units CAPS Take by mouth Once a [...] 42 mcg (0.06 %) nasal spra y [place] 2 sprays 3 times a day by [...] 6 BPM Confirmed by FLORY العلي MD ([id number]) on 08/27/2018 6:38:04 AM LAB RESULTS reviewed during visit today primarily from [facility]: LIPID Lab Results Component Value Date CHOL [...] 366 (H) 06/10/2018 I reviewed records from [facility] for emergency department visit o n 08/26/2018 which is summarized in the HPI. RESULTS- I reviewed reports from [facility]: Ct Head Wo Contrast Result Date: 08/26/2018 [...] shock requiring IABP, pressor (dop amine, norepinephrine). [facility] and [facility] were on divert. Patient wasn' [...] there is no significant changes C. At [facility], patient had another STEMI [...] to follow up closely with a local lead cytogenetic technologist in [place] . He wias dischargeed with a LifeVest [...] y we will transfer the patient to [facility] for consideration of urgent [...] He is in class II of the [place] [employer] functional class. 2. Ischemic Cardiomyopathy: [...] in the se regions. C. S/P [employer] QUALITY ASSURANCE TESTER-D 10-16-17 Dr Darby, [facility]. Ice interrogation today shows [...] will be needing to go back to [place] in the summer. F.Today, 09/21/2018, he has had no increase in fluid retention. There is no leg swelling. He is in class II of the [place] [employer] functional class. Heart failur e stage C. 3. Ventricular tachycardia: A. Electrophysiology Study 10/16/17 shows positive EP study for induc ible ventricular tachycardia. B.In remote interrogation he had 65 episodes of treated VT. He is n ot on any antiarrhythmic. He is going to be seen in [place] so we will let EP know about [...] week ago. Viry mustafa was after his [place] and at the same time patient was having ventricular tachycardia. He was initiated on amiodarone and then discontinued before discharge. The plan is to monitor thro ugh his device and see if this is a problem that needs to be addressed. Patient is not on anticoagulation he was left that way from [facility]. Patient has had several [...] start titrating metoprolol increases as recommended by [facility] ed heart failure team and continue close monitoring of blood pressure. 4. He will follow up in 3 months for office visit and device interrogation, or sooner with concerns. He will have fasting labs prior to visit for lipid profile, CMP and CBC, if not done prior by another provider. Portions of this chart may have been created with [employer] voice recognition software. Occasi onal wrong-word or [...] | | | | | | [place] [address] | | | | | | [phone] | | | | | | | | +--------+ + + + + | 12/16/ | Office | Cardiac | Randy Figueroa, | | | 2018 | Visit | Rehabilitation | MD [address] [place] | | | | | | [place], | | | | | | [place] [address] | | | | | | [phone] | | | | | | | | +--------+ + + + + | 12/21/ | Office | Cardiac | Randy Figueroa, | | | 2018 | Visit | Rehabilitation | MD [address] [place] | | | | | | [place], | | | | | | [place] [address] | | | | | | [phone] | | | | | | | | +--------+ + + + + | 12/23/ | Office | Cardiac | Randy Figueroa, | | | 2018 | Visit | Rehabilitation | MD [address] [place] | | | | | | [place], | | | | | | [place] [address] | | | | | | [phone] | | | | | | | | +--------+ + + + + | 12/28/ | Office | Cardiac | Randy Figueroa, | | | 2018 | Visit | Rehabilitation | MD [address] [place] | | | | | | [place], | | | | | | [place] [address] | | | | | | [phone] | | | | | | | | +--------+ + + + + | 12/30/ | Office | Cardiac | Randy Figueroa, | | | 2018 | Visit | Rehabilitation | MD [address] | | | | | | [place], | | | | | | [place] [address] | | | | | | [phone] | | | | | | | | +--------+ + + + + | 01/04/ | Office | Cardiac | Randy Figueroa, | | | 2018 | Visit | Rehabilitation | MD [address] [place] | | | | | | [place], | | | | | | [place] [address] | | | | | | [phone] | | | | | | | | +--------+ + + + + | 01/06/ | Office | Cardiac | Randy Figueroa, | | | 2018 | Visit | Rehabilitation | MD [address] | | | | | | [place], | | | | | | [place] [address] | | | | | | [phone] | | | | | | | | +--------+ + + + + | 01/11/ | Office | Cardiac | Randy Figueroa, | | | 2018 | Visit | Rehabilitation | MD Javid Crespo | | | | | | [place], | | | | | | [place] [address] | | | | | | [phone] | | | | | | | [...] | | | | | | [place] [address] | | | | | | [phone] | | | | | | | [...] + | Acute anterior wall [place] (HCC) | + + | Acute myocardial infarction of other anterior wall, episode of care unspecified | + + | Coronary artery disease involving [place] coronary artery of [place] heart without | | angina pectoris | + + | Ischemic cardiomyopathy | + + | Other specified forms of chronic ischemic heart disease | + + | Abdominal aortic aneurysm (AAA) without rupture (HCC) | + + | Mixed hyperlipidemia | + +
--- OUTSIDE RECORDS SUMMARY | ~2018-12-11 | XMS | Encounter Summary ---
Demographics + + + | Address | [address] | | | [place] [address] | + + + | Home Phone [...] | [place] | | | | | [address] | | + + + + + Care Team Providers + +------+ + | Care Computer Support Technician Name | Role | Phone | [...] | | | involving | [address] [place] | | | | | [place] | [place] | [place] | | | | | coronary | [address] | [address] | | | | | artery of | Phone: | Phone: | | | | | [place] heart | [phone] | [phone] | | | | | without | Fax: | Fax: | | | | | angina | [phone] | [phone] | | | | | pectoris | | | + + + + + + + Encounter Details +--------+---------+ + + + | Date | Type | Department | Care Team | Description | +--------+---------+ + + + | 12/07/ | Office | [facility] | Randy Figueroa, | Coronary artery | | 2019 | Visit | [facility] CARD[facility]AC | MD [address] | disease involving | | | | REHABILITATION [address] | [place], | [place] coronary | | | | [address] [place] | [place] [address] | artery of [place] | | | | [place] [address] | [phone] | heart without angina | | | | [phone] | | pectoris (Primary | | | [...] may be different from the origin al. [facility] [address] [place] [address] Cardiac Rehab Date: 12/07/2018 Patient Information Patient Name: Bob Will Date of : 1955 Age: 63 y.o. Encounter Diagnoses Code Name Primary? I25.10 Coronary artery disease involving [place] coronary artery of [place] heart without angina pectoris Yes Z98.61 Post [...] Visit | Rehabilitation | MD [address] | | | | | | [place], | | | | | | [place] [address] | | | | | | [phone] | | | | | | | | +--------+ + + + + | 12/16/ | Office | Cardiac | Randy Figueroa, | | | 2018 | Visit | Rehabilitation | MD [address] | | | | | | [place], | | | | | | [place] [address] | | | | | | [phone] | | | | | | | | +--------+ + + + + | 12/21/ | Office | Cardiac | Randy Figueroa, | | | 2018 | Visit | Rehabilitation | MD [address] | | | | | | [place], | | | | | | [place] [address] | | | | | | [phone] | | | | | | | | +--------+ + + + + | 12/23/ | Office | Cardiac | Randy Figueroa, | | | 2018 | Visit | Rehabilitation | MD [address] | | | | | | [place], | | | | | | [place] [address] | | | | | | [phone] | | | | | | | | +--------+ + + + + | 12/28/ | Office | Cardiac | Randy Figueroa, | | | 2018 | Visit | Rehabilitation | MD [address] | | | | | | [place], | | | | | | [place] [address] | | | | | | [phone] | | | | | | | | +--------+ + + + + | 12/30/ | Office | Cardiac | Randy Figueroa, | | | 2018 | Visit | Rehabilitation | MD [address] | | | | | | [place], | | | | | | [place] [address] | | | | | | [phone] | | | | | | | | +--------+ + + + + | 01/04/ | Office | Cardiac | Randy Figueroa, | | | 2018 | Visit | Rehabilitation | MD [address] | | | | | | [place], | | | | | | [place] [address] | | | | | | [phone] | | | | | | | | +--------+ + + + + | 01/06/ | Office | Cardiac | Randy Figueroa, | | | 2018 | Visit | Rehabilitation | MD [address] | | | | | | [place], | | | | | | [place] [address] | | | | | | [phone] | | | | | | | | +--------+ + + + + | 01/11/ | Office | Cardiac | Randy Figueroa, | | | 2018 | Visit | Rehabilitation | MD [address] | | | | | | [place], | | | | | | [place] [address] | | | | | | [phone] | | | | | | | | +--------+ + + + + | 03/24/ | Procedure | Cardiology | | | | 2018 | visit | | | | +--------+ + + + + | 03/24/ | Office | Cardiology | Jenny, | | | 2018 | Visit | | Hansa[facility]ARSH [address] | | | | | [address] [place], | | | | | | [place] [address] | | | | | | [phone] | | | | | | | [...]
--- OUTSIDE RECORDS SUMMARY | ~2018-12-11 | XMS | Encounter Summary ---
Demographics + + + | Address | [address] [place] [address] [address] | | | [place] [address] | + + + | Home Phone | | + + + | Preferred Language | Unknown | + + + | Marital Status | | + + + | Church Affiliation | Unknown | + + + | Race | Unknown | + + + | Ethnic Group | Unknown | + + + Author + + + | Author | [employer]andra [employer] | + + + | Organization | [facility] [employer] [facility] | + + + | Address | Unknown | + + + | Phone | Unavailable | + + + Support + + +---------+ + | Name | Relationship | Address | Phone | + + +---------+ + | Venice Mckeon | ECON | Unknown | | + + +---------+ + Care Team Providers + +------+ + | Care Fixed Income Trading Vice President Name | Role | Phone [...] HF chronicity, | | | | | [id number] | unspecified heart | | | | [...] MCKEON Date of : 1955 | [facility] | | Performing Physician: Rocio | RADIOLOGY | | [place] | | | | | | INDICATIONS [...] MV A Rohan: 0.86 m/s MV Dec [place]: 3.26 m/s2 | | | MV DecT: [...] | 21.47 mmHg TR Vmax: 2.31 m/s Founder: ANJANA Authenticated | | | by: Rocio Pearl Report Date/Time: 11-04-2018 19:16:25 | | + + + + + | Procedure Note | + + | Sebastian, Rad Results In - 11/04/2018 7:20 PM PST Patient Name: Belkys MCKEON of | | : 5Accession: [id number] Physician: Rocio | | Alsamara INDICATIONS------ | [...] | 5.92 cmLVPWd: 1.01 cmLVOT Area: 3.17 gz0AAOL Diam: 2.01 cm%FS: 15.56 %EF(Teich): | | [...] mlLAESV Index (A-L): 42.88 ml/m2LAAs A2C: 24.92 hy6ALLAO A-L | | A2C: 95.08 mlLALs A2C: 5.54 cmLAAs A4C: 19.37 he4ACHVU A-L A4C: 70.66 mlLALs | | A4C: 4.50 cmRAAs: 18.79 et3YZOGA A-L: 67.38 mlRAESV MOD: 63.17 mlRALs: 4.44 | | cmTAPSE: 2.12 cmAV maxP.82 mmHgAV meanP.56 mmHgAV Vmax: 1.30 m/Emil | | Vmean: 0.88 m/Emil VTI: 25.33 cmAVA Vmax: 2.55 cm2AVA (VTI): 2.49 hi4RTGW (Vmax): | | 0.00 cm2/m2AVAI (VTI): 0.00 cm2/m2LVOT maxP.40 mmHgLVOT meanP.91 | | mmHgLVSI Dopp: 29.85 ml/m2LVSV Dopp: 63.29 mlLVOT Vmax: 1.04 m/sLVOT Vmean: 0.64 | | m/sLVOT VTI: 19.92 cmMV A Rohan: 0.86 m/sMV Dec [place]: 3.26 m/s2MV DecT: 218.32 | | msMV E Rohan: 0.71 m/sMV E/A Ratio: 0.82 MV PHT: 63.31 msMVA By PHT: 3.47 | | gz0Jinyql e': 0.04 m/sSeptal E/e': 15.51 Lateral e': 0.06 m/sLateral E/e': 10.91 | | RAP: 5 mmHgRVSP: 26.47 mmHgTR maxP.47 mmHgTR Vmax: 2.31 m/sSonographer: | | DBSAuthenticated by: Rocio AlsdetroitraReport Date/Time: 11-04-2018 19:16:25IMPRESSION:1. | | This was [...] A Rohan: 0.86 m/s | |MV Dec [place]: 3.26 m/s2 | |MV DecT: 218.32 ms [...] |TR Vmax: 2.31 m/s | | | |Founder: ANJANA | |Authenticated by: Rocio Licoeloy | [...] | [address] | [place] [address] | | + + + + + in this encounter Visit Diagnoses + + | Diagnosis | + + | Congestive heart failure, unspecified HF chronicity, unspecified heart failure type | | (HCC) | + +"
--- OUTSIDE RECORDS SUMMARY | ~2018-12-11 | XMS | Encounter Summary ---
Demographics + + + | Address | [address] | | | [place] [address] | + + + | Home Phone [...] | [place] | | | | | [address] | | + + + + + Care Team Providers + +------+ + | Care Private Tutor Name | Role | Phone | + [...] | | | involving | [address] [place] | | | | | [place] | [place] | [place] | | | | | coronary | [address] | [address] | | | | | artery of | Phone: | Phone: | | | | | [place] heart | [phone] | [phone] | | | | | without | Fax: | Fax: | | | | | angina | [phone] | [phone] | | | | | pectoris | | | + + + + + + + Encounter Details +--------+---------+ + + + | Date | Type | Department | Care Team | Description | +--------+---------+ + + + | 11/25/ | Office | [facility] | Carolina Randy, | Coronary artery | | 2019 | Visit | MED CTR CARDIAC | MD [address] | disease involving | | | | REHABILITATION [address] | [place], | [place] coronary | | | | [address] [place] | [place] [address] | artery of [place] | | | | [place] [address] | [phone] | heart without angina | | | | [phone] | | pectoris (Primary | | | [...] may be differ ent from the original. [facility] CARDIAC REHABILITATION [address] [place] [address] Cardiac Rehab Date: 11/25/2018 Patient Information Patient [...] Visit | Rehabilitation | MD [address] | | | | | | [place], | | | | | | [place] [address] | | | | | | [phone] | | | | | | | | +--------+ + + + + | 12/16/ | Office | Cardiac | Randy Figueroa, | | | 2018 | Visit | Rehabilitation | MD [address] | | | | | | [place], | | | | | | [place] [address] | | | | | | [phone] | | | | | | | | +--------+ + + + + | 12/21/ | Office | Cardiac | Randy Figueroa, | | | 2018 | Visit | Rehabilitation | MD [address] | | | | | | [place], | | | | | | [place] [address] | | | | | | [phone] | | | | | | | | +--------+ + + + + | 12/23/ | Office | Cardiac | Randy Figueroa, | | | 2018 | Visit | Rehabilitation | MD [address] | | | | | | [place], | | | | | | [place] [address] | | | | | | [phone] | | | | | | | | +--------+ + + + + | 12/28/ | Office | Cardiac | Randy Figueroa, | | | 2018 | Visit | Rehabilitation | MD [address] | | | | | | [place], | | | | | | [place] [address] | | | | | | [phone] | | | | | | | | +--------+ + + + + | 12/30/ | Office | Cardiac | Randy Figueroa, | | | 2018 | Visit | Rehabilitation | MD [address] | | | | | | [place], | | | | | | [place] [address] | | | | | | [phone] | | | | | | | | +--------+ + + + + | 01/04/ | Office | Cardiac | Randy Figueroa, | | | 2018 | Visit | Rehabilitation | MD [address] | | | | | | [place], | | | | | | [place] [address] | | | | | | [phone] | | | | | | | | +--------+ + + + + | 01/06/ | Office | Cardiac | Randy Figueroa, | | | 2018 | Visit | Rehabilitation | MD [address] | | | | | | [place], | | | | | | [place] [address] | | | | | | [phone] | | | | | | | | +--------+ + + + + | 01/11/ | Office | Cardiac | Randy Figueroa, | | | 2018 | Visit | Rehabilitation | MD [address] | | | | | | [place], | | | | | | [place] [address] | | | | | | [phone] | | | | | | | | +--------+ + + + + | 03/24/ | Procedure | Cardiology | | | | 2018 | visit | | | | +--------+ + + + + | 03/24/ | Office | Cardiology | [place], | | | 2019 | Visit | | ADARSH Santo [address] | | | | | | [place], | | | | | | [place] [address] | | | | | | [phone] | | | | | | | | +--------+ + + + + as of this encounter Visit Diagnoses + + | Diagnosis | + + | Coronary artery disease involving [place] coronary artery of [place] heart without | | angina pectoris - Primary | + + | Post PTCA | + + | Postsurgical percutaneous transluminal coronary angioplasty status | + +"
--- OUTSIDE RECORDS SUMMARY | ~2018-12-11 | XMS | Encounter Summary ---
Demographics + + + | Address | [address] [place] [address] [address] | | | [place] [address] | + + + | Home Phone | | + + + | Preferred Language | Unknown | + + + | Marital Status | | + + + | Faith Affiliation | Unknown | + + + | Race | Unknown | + + + | Ethnic Group | Unknown | + + + Author + + + | Author | Cassandra Amicrobe | + + + | Organization | [facility] [employer] [facility] | + + + | Address | Unknown | + + + | Phone | Unavailable | + + + Support + + +---------+ + | Name | Relationship | Address | Phone | + + +---------+ + | Venice Mckeon | ECON | Unknown | | + + +---------+ + Care Team Providers + +------+ + | Care Mechanical Process Engineer Name | Role | Phone | [...] HF chronicity, | | | | | [address] | unspecified heart | | | | [...] RON MCKEON Date of : 1955 | [facility] | | Performing Physician: Rocio | RADIOLOGY | | [place] | | | | | | INDICATIONS [...] MV A Rohan: 0.86 m/s MV Dec [place]: 3.26 m/s2 | | | MV DecT: [...] | 21.47 mmHg TR Vmax: 2.31 m/s Eyelet Punch Operator: ANJANA Authenticated | | | by: Rocio Pearl Report Date/Time: 11-04-2018 19:16:25 | | + + + + + | Procedure Note | + + | Sebastian, Rad Results In - 11/04/2018 7:20 PM PST Patient Name: Belkys MCKEON of | | : 5Accession: [id number] Physician: Rocio | | Alsamara INDICATIONS------ | [...] | 5.92 cmLVPWd: 1.01 cmLVOT Area: 3.17 lu5VUGT Diam: 2.01 cm%FS: 15.56 %EF(Teich): | | [...] mlLAESV Index (A-L): 42.88 ml/m2LAAs A2C: 24.92 ra6WTYVL A-L | | A2C: 95.08 mlLALs A2C: 5.54 cmLAAs A4C: 19.37 nt6NISQP A-L A4C: 70.66 mlLALs | | A4C: 4.50 cmRAAs: 18.79 qe0IVVPK A-L: 67.38 mlRAESV MOD: 63.17 mlRALs: 4.44 | | cmTAPSE: 2.12 cmAV maxP.82 mmHgAV meanP.56 mmHgAV Vmax: 1.30 m/Emil | | Vmean: 0.88 m/Emil VTI: 25.33 cmAVA Vmax: 2.55 cm2AVA (VTI): 2.49 vq4EXJM (Vmax): | | 0.00 cm2/m2AVAI (VTI): 0.00 cm2/m2LVOT maxP.40 mmHgLVOT meanP.91 | | mmHgLVSI Dopp: 29.85 ml/m2LVSV Dopp: 63.29 mlLVOT Vmax: 1.04 m/sLVOT Vmean: 0.64 | | m/sLVOT VTI: 19.92 cmMV A Rohan: 0.86 m/sMV Dec [place]: 3.26 m/s2MV DecT: 218.32 | | msMV E Rohan: 0.71 m/sMV E/A Ratio: 0.82 MV PHT: 63.31 msMVA By PHT: 3.47 | | mo2Xwuein e': 0.04 m/sSeptal E/e': 15.51 Lateral e': 0.06 m/sLateral E/e': 10.91 | | RAP: 5 mmHgRVSP: 26.47 mmHgTR maxP.47 mmHgTR Vmax: 2.31 m/sSonographer: | | DBSAuthenticated by: Rocio AlsakronraReport Date/Time: 11-04-2018 19:16:25IMPRESSION:1. | | This was [...] A Rohan: 0.86 m/s | |MV Dec [place]: 3.26 m/s2 | |MV DecT: 218.32 ms [...] |TR Vmax: 2.31 m/s | | | |Eyelet Punch Operator: ANJANA | |Authenticated by: Rocio Licoeloy [...] | [address] | [place] [address] | | + + + + + in this encounter Visit Diagnoses + + | Diagnosis | + + | Congestive heart failure, unspecified HF chronicity, unspecified heart failure type | | (HCC) | + +"
--- OUTSIDE RECORDS SUMMARY | ~2018-12-11 | XMS | Clinical Summary ---
Demographics + + + | Address | [address] [place] [address] [address] | | | [place] [address] | + + + | Home Phone | | + + + | Preferred Language | Unknown | + + + | Marital Status | | + + + | Anglican Affiliation | Unknown | + + + | Race | Unknown | + + + | Ethnic Group | Unknown | + + + Author + + + | Author | Cassandra [employer] | + + + | Organization | [facility] [employer] [facility] | + + + | Address | Unknown | + + + | Phone | Unavailable | + + + Support + + +---------+ + | Name | Relationship | Address | Phone | + + +---------+ + | Venice Mckeon | ECON | Unknown | | + + +---------+ + Care Team Providers + +------+ + | Care Area Operations Director Name | Role | Phone | [...] + + | Father | | | [place] | | | | (Age | | [...] Performing Physician: Rocio | RADIOLOGY | | [facility] | | | | [...] MV A Rohan: 0.86 m/s MV Dec [place]: 3.26 m/s2 | | | MV DecT: [...] | 21.47 mmHg TR Vmax: 2.31 m/s Sap Payroll Consultant: DBS Authenticated | | | by: Rocio [place] Report Date/Time: 11-04-2018 19:16:25 | | + + + + + | Procedure Note | + + | Sebastian, Rad Results In - 11/04/2018 7:20 PM PST Patient Name: Belkys MCKEON of | | : 5Accession: [id number] Physician: Rocio | | Alsamara INDICATIONS------ | [...] | 5.92 cmLVPWd: 1.01 cmLVOT Area: 3.17 zq5RCFR Diam: 2.01 cm%FS: 15.56 %EF(Teich): | | [...] mlLAESV Index (A-L): 42.88 ml/m2LAAs A2C: 24.92 et5LSADH A-L | | A2C: 95.08 mlLALs A2C: 5.54 cmLAAs A4C: 19.37 to9TAFEM A-L A4C: 70.66 mlLALs | | A4C: 4.50 cmRAAs: 18.79 ke4JYUEY A-L: 67.38 mlRAESV MOD: 63.17 mlRALs: 4.44 | | cmTAPSE: 2.12 cmAV maxP.82 mmHgAV meanP.56 mmHgAV Vmax: 1.30 m/Emil | | Vmean: 0.88 m/Emil VTI: 25.33 cmAVA Vmax: 2.55 cm2AVA (VTI): 2.49 mw0WILS (Vmax): | | 0.00 cm2/m2AVAI (VTI): 0.00 cm2/m2LVOT maxP.40 mmHgLVOT meanP.91 | | mmHgLVSI Dopp: 29.85 ml/m2LVSV Dopp: 63.29 mlLVOT Vmax: 1.04 m/sLVOT Vmean: 0.64 | | m/sLVOT VTI: 19.92 cmMV A Rohan: 0.86 m/sMV Dec [place]: 3.26 m/s2MV DecT: 218.32 | | msMV E Rohan: 0.71 m/sMV E/A Ratio: 0.82 MV PHT: 63.31 msMVA By PHT: 3.47 | | tm2Jsqbrq e': 0.04 m/sSeptal E/e': 15.51 Lateral e': 0.06 m/sLateral E/e': 10.91 | | RAP: 5 mmHgRVSP: 26.47 mmHgTR maxP.47 mmHgTR Vmax: 2.31 m/sSonographer: | | DBSAuthenticated by: Elinagwendolyn [facility] CenterReport Date/Time: 11-04-2018 19:16:25IMPRESSION:1. | | [...] A Rohan: 0.86 m/s | |MV Dec [place]: 3.26 m/s2 | |MV DecT: 218.32 ms [...] |TR Vmax: 2.31 m/s | | | |Sap Payroll Consultant: DBS | |Authenticated by: Rocio Pearl | [...] | [address] | [place] [address] | | + + + + + [...] +------+-------+ + | MEDICAID | [place] | [id number] | | | [address] | | | [place] | | | | [place] | | | [place] | | | | [address] | | | ACID LOADER | | | | | + +--------+ [...] | [birth year] | Home: | [facility] [address] | | | al/Fam | | 1956 | [phone] [address] [place], | | | [place] | | | [address] | [place] [address] | + +--------+ +--------+ + +
--- OUTSIDE RECORDS SUMMARY | 2018-12-11 04:06 | XMS ---
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 - Has Care Guidelines - PDMP - [facility] - 2 Visits in 30 Days CARE PROVIDERS Guido Lainez Internal Medicine: Pulmonary Disease 10/18/2018-Current PHONE: Unknown KAREN AYALA Family Medicine: Sports Medicine 06/22/2018-Current PHONE: Unknown LUCY HERNANDEZ Primary Care 10/22/2015-Current PHONE: Unknown Ananda has no Care Guidelines for this patient. Care History Medical/Surgical 10/18/[address] [facility] - Patient is currently established with [facility]. If patient is seen in the ED during business hours. Please contact [facility] at [facility]. Care Recommendation: This patient has had 5 or more Emergency Department visits in the last 12 months.\T\nbsp; Patient requires education on the scope and purpose of the ED as an acute care provider not a Primary Care Provider and should not be utilized for chronic conditions.\T\nbsp; These are guidelines and the provider should exercise clinical judgment when providing care. 12/07/2017 [facility] - Patient is currently utilizing PCP Dr Matson and has been referred to a dictating transcribing machine servicer. - All chronic conditions please refer to [...] ED please contact Community Health WorkerLamar at [phone]. These are guidelines and the provider should exercise clinical judgment when providing care. E.D. VISIT COUNT (12 MO.) 1 [facility] 1 [facility] 13 [facility] TOTAL 15 NOTE: Visits indicate total known visits. ED/UCC VISIT TRACKING (12 MO.) 12/11/2018 04:03 [facility] [place] TYPE: Emergency COMPLAINT: - SOB 12/10/2018 06:53 [facility] [place] TYPE: Emergency COMPLAINT: - SOB 11/02/2018 19:26 [facility] [place] TYPE: Emergency COMPLAINT: - SOB 10/29/2018 07:32 [facility] [place] TYPE: Emergency COMPLAINT: - CHEST PAIN DIAGNOSES: - Pure hypercholesterolemia, unspecified - Old myocardial infarction - Chronic obstructive pulmonary disease, unspecified - Essential (primary) hypertension - Personal history of nicotine dependence - Chest pain, unspecified - termite technician (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 - Presence of coronary angioplasty implant and graft - Other mcfp (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 - Acquired absence of other specified parts of digestive tract - Presence of cardiac pacemaker 10/16/2018 06:03 [facility] TYPE: Emergency COMPLAINT: - SOB [facility] DIAGNOSES: - low bp - Adverse effect of beta-adrenoreceptor antagonists, initial encounter - Weakness - Hypotension 08/18/2018 00:07 [facility] TYPE: Emergency COMPLAINT: - SOB DIAGNOSES: - Hypertensive heart disease with heart failure - Disorder of kidney and ureter, unspecified - Personal history of nicotine dependence - Other mcfp (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 - Heart failure, unspecified - Shortness of breath - Old myocardial infarction - Chronic obstructive pulmonary disease with (acute) exacerbation - Pure hypercholesterolemia, unspecified 08/09/2018 09:56 [facility] [place] TYPE: Emergency COMPLAINT: - L HIP PAIN/NO INJURY DIAGNOSES: - Pain in left hip - Sciatica, left side - Pure hypercholesterolemia, unspecified - Essential (primary) hypertension - Other rn long term care (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 - Old myocardial infarction 06/26/2018 06:43 [facility] [place] TYPE: Emergency COMPLAINT: - SOB DIAGNOSES: - Heart failure, unspecified - Shortness of breath - Hypertensive heart disease with heart failure - Chronic obstructive pulmonary disease with (acute) exacerbation - Other rn long term care (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 06/17/2018 02:41 [facility] [place] TYPE: Emergency COMPLAINT: - SOB DIAGNOSES: - Other mcfp (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 - Dyspnea, unspecified - Essential (primary) hypertension - Presence of coronary angioplasty implant and graft - termite technician (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 - Personal history of nicotine dependence - Shortness of breath 05/01/2018 07:47 [facility] TYPE: Emergency DIAGNOSES: - Chest pain, unspecified - Non-ST elevation (NSTEMI) myocardial infarction - Acute pulmonary edema - Shortness of Breath 05/01/2018 03:23 [facility] TYPE: Emergency COMPLAINT: - SOB DIAGNOSES: - Shortness of breath - termite technician (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 - Non-ST elevation [...] NECK PAIN,FLUTTERING HEARTBEAT DIAGNOSES: - Palpitations - termite technician (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 - Other mcfp (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 - Personal history of nicotine dependence - Essential (primary) hypertension - Cervicalgia 12/16/2017 11:59 [facility] [place] TYPE: Emergency COMPLAINT: - COUGH DIAGNOSES: - Other rn long term care (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 - HYDRAULIC BILLET MAKER (CURRENT) USE OF ORAL HYPOGLYCEMIC DRUGS - Essential (primary) hypertension - detention (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 - Personal history of nicotine dependence - Bronchitis, not specified as acute or chronic - Old myocardial infarction - PURE HYPERCHOLESTEROLEMIA, UNSPECIFIED - Cough - termite technician (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 of oral hypoglycemic drugs - [...] Presence of automatic (implantable) cardiac defibrillator - termite technician (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 of opiate analgesic - Psychophysiologic insomnia - Chronic pain syndrome - Old myocardial infarction - detention (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 of antithrombotics/antiplatelets - Chronic obstructive pulmonary disease, unspecified - Idiopathic sleep related nonobstructive alveolar hypoventilation - Gastro-esophageal reflux disease without esophagitis - Acute on chronic systolic (congestive) heart failure - Acute respiratory failure with hypoxia - termite technician (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 of oral hypoglycemic drugs - termite technician (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 - Other rn long term care (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 - Atherosclerotic heart disease of [place] coronary artery without angina pectoris 10/16/2018 06:04 [facility] [place] TYPE: Medical Surgical COMPLAINT: - DECOMPENSATED HEART FAILURE DIAGNOSES: - Ischemic cardiomyopathy - Type 2 diabetes mellitus with diabetic chronic kidney disease - Chronic pain syndrome - Dependence on supplemental oxygen - Unspecified inflammatory spondylopathy, cervical region - Chronic obstructive pulmonary disease, unspecified - termite technician (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 of oral hypoglycemic drugs - Personal history of nicotine dependence - detention (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 - Presence of automatic (implantable) cardiac defibrillator - Other mcfp (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 - Acute on chronic systolic (congestive) heart failure - Presence of coronary angioplasty implant and graft - Atherosclerotic heart disease of [place]ka coronary artery without angina pectoris - Old myocardial infarction - Chronic respiratory failure with hypoxia - Shortness of breath - Gastro-esophageal reflux disease without esophagitis - termite technician (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 of opiate analgesic - Hypertensive chronic kidney disease with stage 1 through stage 4 chronic kidney disease, or unspecified chronic kidney disease - detention (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 of antithrombotics/antiplatelets - Chronic kidney disease, stage 3 (moderate) - Hyperlipidemia, unspecified 05/13/2018 16:21 [facility] TYPE: Cardiology DIAGNOSES: - Heart failure, unspecified - Atherosclerotic heart disease of at[place] coronary artery without angina pectoris - Family history of other specified conditions - Atherosclerotic heart disease of [place] coronary artery with other forms of angina pectoris - Chronic systolic (congestive) heart failure - Coronary Artery Disease - Other forms of angina pectoris - Ischemic cardiomyopathy - Other forms of dyspnea - Essential (primary) hypertension - Presence of automatic (implantable) cardiac defibrillator 05/01/2018 07:47 [facility] TYPE: General Medicine DIAGNOSES: - Acute pulmonary edema - Non-ST elevation (NSTEMI) myocardial infarction - Chest pain, unspecified - Illness, unspecified [email or web address]
--- NOTE | 2018-12-11 22:28 | EKG ---
[facility] [address] [place] [address] Signed Poor data quality, interpretation may be adversely affected Atrial-sensed ventricular-paced rhythm Ventricular-paced rhythm Abnormal ECG When compared with ECG of 10-DEC-2018 06:57, Similar to the previous EKG. Confirmed by KIMMIE GONZALEZ MD ([id number]) on 12/11/2018 10:27:46 PM Electronically Signed By: KIMMIE GONZALEZ MD 12/11/18 [id number] PATIENT NAME: RON MCKEON Electrocardiogram DATE OF : 53 PHYSICIAN: KIMMIE GONZALEZ MD REPORT #: [id number] REPORT IS CONFIDENTIAL AND NOT TO BE RELEASED WITHOUT AUTHORIZATION
[2018-12-15] MEDS ORDERED: TORSEMIDE10 MG PO (10:31)
[2018-12-15] MEDS ORDERED: ENTRESTO 49 MG1 EACH PO (10:31)
== END 2018-12-15 13:25 | disposition home or self-care (01) | DRG 291 ==
LOC: ED 04:03 → CCU 04:04 → MS 12-14 13:40
PROVIDERS: ADMIT Internal Medicine
DX: I50.23 Acute on chronic systolic (congestive) heart failure (principal); J96.21 Acute and chronic respiratory failure with hypoxia; F11.20 Opioid dependence, uncomplicated; N17.9 Acute kidney failure, unspecified; I25.10 Atherosclerotic heart disease of native coronary artery without angina pectoris; G89.29 Other chronic pain; M54.2 Cervicalgia; M54.9 Dorsalgia, unspecified; D72.829 Elevated white blood cell count, unspecified; I95.2 Hypotension due to drugs; T44.7X5A Adverse effect of beta-adrenoreceptor antagonists, initial encounter; T50.0X5A Adverse effect of mineralocorticoids and their antagonists, initial encounter; E11.22 Type 2 diabetes mellitus with diabetic chronic kidney disease; N18.3 Chronic kidney disease, stage 3 (moderate); E78.5 Hyperlipidemia, unspecified; J44.9 Chronic obstructive pulmonary disease, unspecified; K21.9 Gastro-esophageal reflux disease without esophagitis; Y92.239 Unspecified place in hospital as the place of occurrence of the external cause; Z87.891 Personal history of nicotine dependence; Z99.81 Dependence on supplemental oxygen; Z79.02 Long term (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 of antithrombotics/antiplatelets; Z98.61 Coronary angioplasty status; Z79.82 Long term (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; Z79.899 Other long term (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; Z95.810 Presence of automatic (implantable) cardiac defibrillator; Z79.84 Long term (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 of oral hypoglycemic drugs
CPT/HCPCS: 36415; 71045; 71046; 80048; 80053; 80069; 83036; 83735; 83880; 84484; 85025; 85610; 85730; 93005; 93010; 94640; 94644; 94667; 94668; 96374; 96375; 96376; 99291; G0378; J1170; J1650; J1815; J1940; J2930

== ENCOUNTER 2019-01-10 08:01 | Emergency (ER) | payer OTHER ==
[~2019-01-10] VITALS: Ht 175.3 cm; Wt 95.7 kg
--- OUTSIDE RECORDS SUMMARY | ~2019-01-10 | XMS | Encounter Summary ---
Demographics + + + | Address | [address] [place] [address] [address] | | | [place] [address] | + + + | Home Phone | | + + + | Preferred Language | Unknown | + + + | Marital Status | | + + + | Holiness Affiliation | Unknown | + + + | Race | Unknown | + + + | Ethnic Group | Unknown | + + + Author + + + | Author | [facility] [employer] | + + + | Organization | [facility] | + + + | Address | Unknown | + + + | Phone | Unavailable | + + + Support + + +---------+ + | Name | Relationship | Address | Phone | + + +---------+ + | Venice Mckeon | ECON | Unknown | | + + +---------+ + Care Team Providers + +------+ + | Care Aoc Plans Intelligence Officer Chief Name | Role | Phone | + +------+ + | Chato Matson MD | PCP | | + +------+ + Encounter Details +--------+ + + + + | Date | Type | Department | Care Team | Description | +--------+ + + + + | 11/03/ | Ancillary | [facility] | Amy Olivares MD | Congestive heart | | 2019 | Procedure | ECHO | [address] | failure, unspecified | | | | | [place], [place] | HF chronicity, | | | | | [id number] | unspecified heart | | | | | | failure type (HCC) | +--------+ + + + + Social History + + + +--------+------+ | Tobacco Use | Types | Packs/Day | Years | Date | | | | | Used | | + + + +--------+------+ | Former Smoker | Cigarettes | 2 | 40 | | + + + +--------+------+ + +---+---+---+ | Smokeless Tobacco: | [...] this encounter Plan of Treatment Not on fileas of this encounter Procedures + +--------+ + + + | Procedure Name | Priori | Date/Time | Associated Diagnosis | Comments | | | ty | | | | + +--------+ + + + | ECHO OUTSIDE | Routin | 11/03/2018 | Congestive heart | Results for this | | INTERPRETATION | e | 3:41 PM | failure, unspecified | procedure are in the | | STANDARD | | PST | HF chronicity, | results section. | | | | | unspecified heart | | | | | | failure type (HCC) | | + +--------+ + + + in this encounter Results ECHO outside interpretation standard (11/03/2018 3:41 PM) + + + | Impressions | Performed At | + + + | 1. This was a technically difficult study with suboptimal views. 2. | [facility] | | The left ventricle is mildly dilated severely impaired systolic | RADIOLOGY | | function EF 25-30%. Akinetic anterior, anteroseptal, inferosepal, | | | inferior and apical segments. 3. Mild tricuspid regurgitation with | | | moderate left atrial enlargement. 4. There is no pericardial | | | effusion. 5. Compared with the findings of the prior study, there has | | | been no significant change. | | + + + + + + | Narrative | Performed At | + + + | Patient Name: RON MCKEON Date of : 1955 | [facility] | | Performing Physician: Rocio | RADIOLOGY | | [facility] | | | | | | INDICATIONS CHF CONCLUSIONS 1. This | | | was a technically difficult study with suboptimal views. 2. The left | | | ventricle is mildly dilated severely impaired systolic function EF | | | 25-30%. Akinetic anterior, anteroseptal, inferosepal, inferior and | | | apical segments. 3. Mild tricuspid regurgitation with moderate left | | | atrial enlargement. 4. There is no pericardial effusion. 5. Compared | | | with the findings of the prior study, there has been no significant | | | change. FINDINGS -------- ECG rhythm: Sinus rhythm. Study: A | | | 2-dimensional transthoracic echocardiogram with m-mode, spectral and | | | color flow Doppler was perfomed. Study: This was a technically | | | difficult study with suboptimal views. Left Ventricle: Overall left | | | ventricular systolic function is severely impaired with, an EF between | | | 25 - 30 %. Left Ventricle: The left ventricle is mildly dilated. | | | Left Ventricle: Left ventricular wall thickness is normal. Left | | | Ventricle: The diastolic filling pattern indicates impaired relaxation | | | consistent with mild dysfunction (Grade I). Right Ventricle: The | | | right ventricle is normal in size. Right Ventricle: The right | | | ventricular systolic function is mildly impaired. Right Ventricle: | | | Pacer/ICD wire seen. Left Atrium: The left atrium is moderately | | | enlarged. Right Atrium: The right atrium is mildly enlarged. Right | | | Atrium: Pacemaker wire seen in the right atrial cavity. Aortic Valve: | | | The aortic valve was not well visualized. Aortic Valve: There is no | | | evidence of aortic regurgitation. Aortic Valve: There is no | | | evidence of aortic stenosis. Mitral Valve: Normal appearing mitral | | | valve. Mitral Valve: There is trace mitral regurgitation. | | | Tricuspid Valve: The tricuspid valve appears structurally normal. | | | Tricuspid Valve: Mild tricuspid regurgitation present. Tricuspid | | | Valve: There is no evidence of pulmonary hypertension. Tricuspid | | | Valve: The right ventricular systolic pressure (pulmonary artery | | | systolic pressure), as measured by Doppler, is 26.47mmHg. Pulmonic | | | Valve: The pulmonic valve was not well visualized. Pericardium: There | | | is no pericardial effusion. Pericardium: No pleural effusion seen. | | | IVC/Hepatic Veins: The inferior vena cava is normal in size and | | | collapses > 50 % with sniff, indicating normal central venous | | | pressures. Aorta: The aortic root, ascending aorta and aortic arch | | | are normal in size. General comments: Compared with the findings of | | | the prior study, there has been no significant change. | | | MEASUREMENTS Ao sinus: 3.[address] junct: | | | 2.60 cm IVC: 2.12 cm LA Diam: 4.77 cm EDV(Teich): | | | 174.60 ml IVSd: 1.03 cm LVIDd: 5.92 cm LVPWd: 1.01 cm | | | LVOT Area: 3.17 cm2 LVOT Diam: 2.01 cm %FS: 15.56 % | | | EF(Teich): 32.30 % ESV(Teich): 118.19 ml LVIDs: 4.99 cm | | | SV(Teich): 56.41 ml RV Minor: 3.75 cm LVEF MOD A2C: | | | 37.53 % SV MOD A2C: 79.07 ml LVEF MOD A4C: 25.60 % SV MOD | | | A4C: 69.69 ml EF Biplane: 31.92 % LVEDV MOD BP: 239.15 | | | ml LVESV MOD BP: 162.79 ml LVEDV MOD A2C: 210.68 ml LVLd | | | A2C: 10.26 cm LVEDV MOD A4C: 272.18 ml LVLd A4C: 10.01 | | | cm LVESV MOD A2C: 131.60 ml LVLs A2C: 9.50 cm LVESV MOD | | | A4C: 202.48 ml LVLs A4C: 9.48 cm LAESV(A-L): 90.92 ml | | | LAESV Index (A-L): 42.88 ml/m2 LAAs A2C: 24.92 cm2 LAESV A-L | | | A2C: 95.08 ml LALs A2C: 5.54 cm LAAs A4C: 19.37 cm2 | | | LAESV A-L A4C: 70.66 ml LALs A4C: 4.50 cm RAAs: 18.79 | | | cm2 RAESV A-L: 67.38 ml RAESV MOD: 63.17 ml RALs: 4.44 | | | cm TAPSE: 2.12 cm AV maxP.82 mmHg AV meanP.56 | | | mmHg AV Vmax: 1.30 m/s AV Vmean: 0.88 m/s AV VTI: 25.33 | | | cm MABEL Vmax: 2.55 cm2 MABEL (VTI): 2.49 cm2 AVAI (Vmax): | | | 0.00 cm2/m2 AVAI (VTI): 0.00 cm2/m2 LVOT maxP.40 mmHg | | | LVOT meanP.91 mmHg LVSI Dopp: 29.85 ml/m2 LVSV Dopp: | | | 63.29 ml LVOT Vmax: 1.04 m/s LVOT Vmean: 0.64 m/s LVOT | | | VTI: 19.92 cm MV A Rohan: 0.86 m/s MV Dec [place]: 3.26 m/s2 | | | MV DecT: 218.32 ms MV E Rohan: 0.71 m/s MV E/A Ratio: | | | 0.82 MV PHT: 63.31 ms MVA By PHT: 3.47 cm2 Septal e': | | | 0.04 m/s Septal E/e': 15.51 Lateral e': 0.06 m/s Lateral | | | E/e': 10.91 RAP: 5 mmHg RVSP: 26.47 mmHg TR maxPG: | | | 21.47 mmHg TR Vmax: 2.31 m/s President And Cmo: ANJANA Authenticated | | | by: [facility] Report Date/Time: 11-04-2018 19:16:25 | | + + + + + | Procedure Note | + + | Sebastian, Rad Results In - 11/04/2018 7:20 PM PST Patient Name: Belkys MCKEON of | | : 5Accession: [id number] Physician: Rocio | | [facility] INDICATIONS------ | | -----CHFCONCLUSIONS 1. This was a technically difficult study with suboptimal | | views.2. The left ventricle is mildly dilated severely impaired systolic function EF | | 25-30%. Akinetic anterior, anteroseptal, inferosepal, inferior and apical segments. 3. | | Mild tricuspid regurgitation with moderate left atrial enlargement.4. There is no | | pericardial effusion.5. Compared with the findings of the prior study, there has been no | | significant change.FINDINGS--------ECG rhythm: Sinus rhythm.Study: A 2-dimensional | | transthoracic echocardiogram with m-mode, spectral and color flow Doppler was perfomed. | | Study: This was a technically difficult study with suboptimal views.Left Ventricle: | | Overall left ventricular systolic function is severely impaired with, an EF between 25 - | | 30 %. Left Ventricle: The left ventricle is mildly dilated. Left Ventricle: Left | | ventricular wall thickness is normal. Left Ventricle: The diastolic filling pattern | | indicates impaired relaxation consistent with mild dysfunction (Grade I).Right | | Ventricle: The right ventricle is normal in size. Right Ventricle: The right ventricular | | systolic function is mildly impaired. Right Ventricle: Pacer/ICD wire seen.Left Atrium: | | The left atrium is moderately enlarged.Right Atrium: The right atrium is mildly | | enlarged. Right Atrium: Pacemaker wire seen in the right atrial cavity.Aortic Valve: The | | aortic valve was not well visualized. Aortic Valve: There is no evidence of aortic | | regurgitation. Aortic Valve: There is no evidence of aortic stenosis.Mitral Valve: | | Normal appearing mitral valve. Mitral Valve: There is trace mitral | | regurgitation.Tricuspid Valve: The tricuspid valve appears structurally normal. | | Tricuspid Valve: Mild tricuspid regurgitation present. Tricuspid Valve: There is no | | evidence of pulmonary hypertension. Tricuspid Valve: The right ventricular systolic | | pressure (pulmonary artery systolic pressure), as measured by Doppler, is | | 26.47mmHg.Pulmonic Valve: The pulmonic valve was not well visualized.Pericardium: There | | is no pericardial effusion. Pericardium: No pleural effusion seen.IVC/Hepatic Veins: The | | inferior vena cava is normal in size and collapses > 50 % with sniff, indicating normal | | central venous pressures.Aorta: The aortic root, ascending aorta and aortic arch are | | normal in size.General comments: Compared with the findings of the prior study, there | | has been no significant change.MEASUREMENTS Ao sinus: 3.[address] junct: | | 2.60 cmIVC: 2.12 cmLA Diam: 4.77 cmEDV(Teich): 174.60 mlIVSd: 1.03 cmLVIDd: | | 5.92 cmLVPWd: 1.01 cmLVOT Area: 3.17 ha7RSIP Diam: 2.01 cm%FS: 15.56 %EF(Teich): | | 32.30 %ESV(Teich): 118.19 mlLVIDs: 4.99 cmSV(Teich): 56.41 mlRV Minor: 3.75 | | cmLVEF MOD A2C: 37.53 %SV MOD A2C: 79.07 mlLVEF MOD A4C: 25.60 %SV MOD A4C: | | 69.69 mlEF Biplane: 31.92 %LVEDV MOD BP: 239.15 mlLVESV MOD BP: 162.79 mlLVEDV MOD | | A2C: 210.68 mlLVLd A2C: 10.26 cmLVEDV MOD A4C: 272.18 mlLVLd A4C: 10.01 cmLVESV | | MOD A2C: 131.60 mlLVLs A2C: 9.50 cmLVESV MOD A4C: 202.48 mlLVLs A4C: 9.48 | | cmLAESV(A-L): 90.92 mlLAESV Index (A-L): 42.88 ml/m2LAAs A2C: 24.92 [id number] A-L | | A2C: 95.08 mlLALs A2C: 5.54 cmLAAs A4C: 19.37 [id number] A-L A4C: 70.66 mlLALs | | A4C: 4.50 cmRAAs: 18.79 [id number] A-L: 67.38 mlRAESV MOD: 63.17 mlRALs: 4.44 | | cmTAPSE: 2.12 cmAV maxP.82 mmHgAV meanP.56 mmHgAV Vmax: 1.30 m/Emil | | Vmean: 0.88 m/Emil VTI: 25.33 cmAVA Vmax: 2.55 cm2AVA (VTI): 2.49 [id number] (Vmax): | | 0.00 cm2/m2AVAI (VTI): 0.00 cm2/m2LVOT maxP.40 mmHgLVOT meanP.91 | | mmHgLVSI Dopp: 29.85 ml/m2LVSV Dopp: 63.29 mlLVOT Vmax: 1.04 m/sLVOT Vmean: 0.64 | | m/sLVOT VTI: 19.92 cmMV A Rohan: 0.86 m/sMV Dec [place]: 3.26 m/s2MV DecT: 218.32 | | msMV E Rohan: 0.71 m/sMV E/A Ratio: 0.82 MV PHT: 63.31 msMVA By PHT: 3.47 | | pn4Kjqkji e': 0.04 m/sSeptal E/e': 15.51 Lateral e': 0.06 m/sLateral E/e': 10.91 | | RAP: 5 mmHgRVSP: 26.47 mmHgTR maxP.47 mmHgTR Vmax: 2.31 m/sSonographer: | | DBSAuthenticated by: Mershed [facility]Report Date/Time: 11-04-2018 19:16:25IMPRESSION:1. | | This was a technically difficult study with suboptimal views.2. The left ventricle is | | mildly dilated severely impaired systolic function EF 25-30%. Akinetic anterior, | | anteroseptal, inferosepal, inferior and apical segments. 3. Mild tricuspid regurgitation | | with moderate left atrial enlargement.4. There is no pericardial effusion.5. Compared | | with the findings of the prior study, there has been no significant change. | |LA Diam: 4.77 cm | |EDV(Teich): 174.60 ml | |IVSd: 1.03 cm | |LVIDd: 5.92 cm | |LVPWd: 1.01 cm | |LVOT Area: 3.17 cm2 | |LVOT Diam: 2.01 cm | |%FS: 15.56 % | |EF(Teich): 32.30 % | |ESV(Teich): 118.19 ml | |LVIDs: 4.99 cm | |SV(Teich): 56.41 ml | |RV Minor: 3.75 cm | |LVEF MOD A2C: 37.53 % | |SV MOD A2C: 79.07 ml | |LVEF MOD A4C: 25.60 % | |SV MOD A4C: 69.69 ml | |EF Biplane: 31.92 % | |LVEDV MOD BP: 239.15 ml | |LVESV MOD BP: 162.79 ml | |LVEDV MOD A2C: 210.68 ml | |LVLd A2C: 10.26 cm | |LVEDV MOD A4C: 272.18 ml | |LVLd A4C: 10.01 cm | |LVESV MOD A2C: 131.60 ml | |LVLs A2C: 9.50 cm | |LVESV MOD A4C: 202.48 ml | |LVLs A4C: 9.48 cm | |LAESV(A-L): 90.92 ml | |LAESV Index (A-L): 42.88 ml/m2 | |LAAs A2C: 24.92 cm2 | |LAESV A-L A2C: 95.08 ml | |LALs A2C: 5.54 cm | |LAAs A4C: 19.37 cm2 | |LAESV A-L A4C: 70.66 ml | |LALs A4C: 4.50 cm | |RAAs: 18.79 cm2 | |RAESV A-L: 67.38 ml | |RAESV MOD: 63.17 ml | |RALs: 4.44 cm | |TAPSE: 2.12 cm | |AV maxP.82 mmHg | |AV meanP.56 mmHg | |AV Vmax: 1.30 m/s | |AV Vmean: 0.88 m/s | |AV VTI: 25.33 cm | |MABEL Vmax: 2.55 cm2 | |MABEL (VTI): 2.49 cm2 | |AVAI (Vmax): 0.00 cm2/m2 | |AVAI (VTI): 0.00 cm2/m2 | |LVOT maxP.40 mmHg | |LVOT meanP.91 mmHg | |LVSI Dopp: 29.85 ml/m2 | |LVSV Dopp: 63.29 ml | |LVOT Vmax: 1.04 m/s | |LVOT Vmean: 0.64 m/s | |LVOT VTI: 19.92 cm | |MV A Rohan: 0.86 m/s | |MV Dec [place]: 3.26 m/s2 | |MV DecT: 218.32 ms | |MV E Rohan: 0.71 m/s | |MV E/A Ratio: 0.82 | |MV PHT: 63.31 ms | |MVA By PHT: 3.47 cm2 | |Septal e': 0.04 m/s | |Septal E/e': 15.51 | |Lateral e': 0.06 m/s | |Lateral E/e': 10.91 | |RAP: 5 mmHg | |RVSP: 26.47 mmHg | |TR maxP.47 mmHg | |TR Vmax: 2.31 m/s | | | |President And Cmo: DBS | |Authenticated by: Rocio Pearl | |Report Date/Time: 11-04-2018 19:16:25 | | | |IMPRESSION: | |1. This was a technically difficult study with suboptimal views. | |2. The left ventricle is mildly dilated severely impaired systolic function EF 25-30%. Home etic anterior, anteroseptal, inferosepal, inferior and apical segments. | |3. Mild tricuspid regurgitation with moderate left atrial enlargement. | |4. There is no pericardial effusion. | |5. Compared with the findings of the prior study, there has been no significant change. | + + + + + + + | Performing | Address | City/State/Zipcode | Phone Number | | Organization | | | | + + + + + | [facility] | [address] | [place] [address] | | + + + + + in this encounter Visit Diagnoses + + | Diagnosis | + + | Congestive heart failure, unspecified HF chronicity, unspecified heart failure type | | (HCC) | + +"
--- OUTSIDE RECORDS SUMMARY | ~2019-01-10 | XMS | Encounter Summary ---
Demographics + + + | Address | [address] | | | [place] [address] | + + + | Home Phone [...] [place] | | | | | [address] | | + + + + + Care Team Providers + +------+ + | Care Fugitive Detective Name | Role | Phone | + [...] | | | | | | [place] [address] | | | | | | [phone] | | | +--------+ + + + [...] | | | | | | [place] [address] | | | | | | [phone] | | | | | | | | +--------+ + + + + documented as of this encounter Visit Diagnoses Not on filedocumented in this encounter"
--- OUTSIDE RECORDS SUMMARY | ~2019-01-10 | XMS | Encounter Summary ---
Demographics + + + | Address | [address] [place] [address] [address] | | | [place] [address] | + + + | Home Phone | | + + + | Preferred Language | Unknown | + + + | Marital Status | | + + + | Hoahaoism Affiliation | Unknown | + + + | Race | Unknown | + + + | Ethnic Group | Unknown | + + + Author + + + | Author | Cassandra [facility] | + + + | Organization | [facility] | + + + | Address | Unknown | + + + | Phone | Unavailable | + + + Support + + +---------+ + | Name | Relationship | Address | Phone | + + +---------+ + | Venice Mckeon | ECON | Unknown | | + + +---------+ + Care Team Providers + +------+ + | Care Casing Flusher Name | Role | Phone | + [...] HF chronicity, | | | | | [id number] | unspecified heart | | | | [...] RON MCKEON Date of : 1955 | [facility] | | Performing Physician: Rocio | RADIOLOGY | | [facility] | | | | | | INDICATIONS [...] MV A Rohan: 0.86 m/s MV Dec [place]: 3.26 m/s2 | | | MV DecT: [...] | 21.47 mmHg TR Vmax: 2.31 m/s Mental Health Therapist: ANJANA Authenticated | | | by: [facility] Report Date/Time: 11-04-2018 19:16:25 | | + + + + + | Procedure Note | + + | Sebastian, Rad Results In - 11/04/2018 7:20 PM PST Patient Name: Belkys MCKEON of | | : 5Accession: [id number] Physician: Rocio | | [facility] INDICATIONS------ | | -----CHFCONCLUSIONS 1. This was [...] | 5.92 cmLVPWd: 1.01 cmLVOT Area: 3.17 [id number] Diam: 2.01 cm%FS: 15.56 %EF(Teich): | | [...] mlLAESV Index (A-L): 42.88 ml/m2LAAs A2C: 24.92 [id number] A-L | | A2C: 95.08 mlLALs A2C: 5.54 cmLAAs A4C: 19.37 [id number] A-L A4C: 70.66 mlLALs | | A4C: 4.50 cmRAAs: 18.79 [id number] A-L: 67.38 mlRAESV MOD: 63.17 mlRALs: 4.44 | | cmTAPSE: 2.12 cmAV maxP.82 mmHgAV meanP.56 mmHgAV Vmax: 1.30 m/Emil | | Vmean: 0.88 m/Emil VTI: 25.33 cmAVA Vmax: 2.55 cm2AVA (VTI): 2.49 [id number] (Vmax): | | 0.00 cm2/m2AVAI (VTI): 0.00 cm2/m2LVOT maxP.40 mmHgLVOT meanP.91 | | mmHgLVSI Dopp: 29.85 ml/m2LVSV Dopp: 63.29 mlLVOT Vmax: 1.04 m/sLVOT Vmean: 0.64 | | m/sLVOT VTI: 19.92 cmMV A Rohan: 0.86 m/sMV Dec [place]: 3.26 m/s2MV DecT: 218.32 | | msMV E Rohan: 0.71 m/sMV E/A Ratio: 0.82 MV PHT: 63.31 msMVA By PHT: 3.47 | | yg2Zefpfa e': 0.04 m/sSeptal E/e': 15.51 Lateral e': 0.06 m/sLateral E/e': 10.91 | | RAP: 5 mmHgRVSP: 26.47 mmHgTR maxP.47 mmHgTR Vmax: 2.31 m/sSonographer: | | DBSAuthenticated by: Mershed [facility] CenterReport Date/Time: 11-04-2018 19:16:25IMPRESSION:1. | | This was [...] A Rohan: 0.86 m/s | |MV Dec [place]: 3.26 m/s2 | |MV DecT: 218.32 ms [...] |TR Vmax: 2.31 m/s | | | |Mental Health Therapist: DBS | |Authenticated by: Rocio Pearl | [...] | + + + + + | [facility] | [address] | [place] [address] | | + + + + + in this encounter Visit Diagnoses + + | Diagnosis | + + | Congestive heart failure, unspecified HF chronicity, unspecified heart failure type | | (HCC) | + +"
--- OUTSIDE RECORDS SUMMARY | ~2019-01-10 | XMS | Encounter Summary ---
Demographics + + + | Address | [address] | | | [place] [address] | + + + | Home Phone [...] | Author | [facility] | | | and [place] | + + + | Organization | [facility] | | | and [place] | + + + | Address | Unknown | + + + | Phone | Unavailable | + + + Support + + + + + | Name | Relationship | Address | Phone | + + + + + | Venice Will | ECON | [place] | | | | | [address] | | + + + + + [...] | | | involving | [address] [place] | | | | | huslia | [place], [place] | [place], [place] | | | | | coronary | [address] | [address] | | | | | artery of | Phone: | Phone: | | | | | huslia heart | [phone] | [phone] | | | | | without | Fax: | Fax: | | | | | angina | [phone] | [phone] | | | | | pectoris | | | + + + + + + + Encounter Details +--------+---------+ + + + | Date | Type | Department | Care Team | Description | +--------+---------+ + + + | 11/18/ | Office | [facility] | Randy Figueroa, | Coronary artery | | 2019 | Visit | [facility] | [address] | disease involving | | | | REHABILITATION [address] [place], | huslia coronary | | | | [address] [place] | [place] [address] | artery of huslia | | | | [place] [address] | [phone] | heart without angina | | | | [phone] | | pectoris (Primary | | | [...] might be different from the orig inayocasta. [facility] [address] [facility] [address] Cardiac Rehab Date: 11/18/2018 Patient Information Patient Name: Bob Will Date of : 1955 Age: 63 y.o. Encounter Diagnoses Code Name Primary? I25.10 Coronary artery disease involving huslia coronary artery of huslia heart without angina pectoris Yes Z98.61 Post [...] | | | | | | [place] [address] | | | | | | [phone] | | | | | | | | +--------+ + + + + documented as of this encounter Visit Diagnoses + + | Diagnosis | + + | Coronary artery disease involving huslia coronary artery of huslia heart without | | angina pectoris - Primary | + + | Post PTCA Postsurgical percutaneous transluminal coronary angioplasty status | + + documented in this encounter"
--- OUTSIDE RECORDS SUMMARY | ~2019-01-10 | XMS | Encounter Summary ---
Demographics + + + | Address | [address] | | | [place] [address] | + + + | Home Phone | | + + + | Preferred Language | Unknown | + + + | Marital Status | | + + + | Adventist Affiliation | Unknown | + + + | Race | Unknown | + + + | Ethnic Group | Unknown | + + + Author + + + | Author | [facility] | | | and [place] | + + + | Organization | [facility] | | | and [place] | + + + | Address | Unknown | + + + | Phone | Unavailable | + + + Support + + + + + | Name | Relationship | Address | Phone | + + + + + | Venice Will | ECON | [place] | | | | | [address] | | + + + + + Care Team Providers + +------+ + | Care Parts Assembler Name | Role | Phone | + [...] | | | involving | [address] [place] | | | | | [place] | [place] | [place] | | | | | coronary | [address] | [address] | | | | | artery of | Phone: | Phone: | | | | | [place] heart | [phone] | [phone] | | | | | without | Fax: | Fax: | | | | | angina | [phone] | [phone] | | | | | pectoris | | | + + + + + + + Encounter Details +--------+---------+ + + + | Date | Type | Department | Care Team | Description | +--------+---------+ + + + | 11/23/ | Office | [facility] | Rahullindacathy Lindaangusleo, | Acute on chronic | | 2019 | Visit | [facility] | MD [address] | systolic congestive | | | | REH[address]ILIT[facility] [address] | [facility], | heart failure (HCC) | | | | [address] [place] | [place] [address] | (Primary Dx) | | | | [place] [address] | [phone] | | | | | [phone] | | | +--------+---------+ + + + [...] of this encounter Progress Jonah Coker-Cheri Kendrick, PROCESS DESCRIPTION WRITER - 11/23/2018 1000 PDTFormatting of this note might be diff erent from the original. [facility]ATION [address] [facility] [address] Cardiac Rehab Date: 11/23/2018 Patient Information Patient [...] [place], | | | | | | [place] [address] | | | | | | [phone] | | | | | | | | +--------+ + + + + documented as of this encounter Visit Diagnoses + + | Diagnosis | + + | Acute on chronic systolic congestive heart failure (HCC) - Primary Acute on chronic | | systolic heart failure | + + documented in this encounter"
--- OUTSIDE RECORDS SUMMARY | ~2019-01-10 | XMS | Encounter Summary ---
Demographics + + + | Address | [address] | | | [place] [address] | + + + | Home Phone | | + + + | Preferred Language | Unknown | + + + | Marital Status | | + + + | Alevism Affiliation | Unknown | + + + | Race | Unknown | + + + | Ethnic Group | Unknown | + + + Author + + + | Author | [facility] | | | and [place] | + + + | Organization | [facility] | | | and [place] | + + + | Address | Unknown | + + + | Phone | Unavailable | + + + Support + + + + + | Name | Relationship | Address | Phone | + + + + + | Venice Will | ECON | [place] | | | | | [address] | | + + + + + Care Team Providers + +------+ + | Care Locate Technician Name | Role | Phone | [...] | | | involving | [address] [place] | | | | | [place] | [place] | [place] | | | | | coronary | [address] | [address] | | | | | artery of | Phone: | Phone: | | | | | [place] heart | [phone] | [phone] | | | | | without | Fax: | Fax: | | | | | angina | [phone] | [phone] | | | | | pectoris | | | + + + + + + + Encounter Details +--------+---------+ + + + | Date | Type | Department | Care Team | Description | +--------+---------+ + + + | 11/30/ | Office | [facility] | [place] Randy, | Coronary artery | | 2019 | Visit | MED CTR CARDIAC | MD [address] | disease involving | | | | REHABILITATION [address] | [place], | [place] coronary | | | | [address] [place] | [place] [address] | artery of [place] | | | | [place] [address] | [phone] | heart without angina | | | | [phone] | | pectoris (Primary | | | [...] note might be different from the orig [facility] CARDIAC REHABILITATION [address] [facility] [address] Cardiac Rehab Date: 11/30/2018 Patient Information Patient Name: Bob Will Date of : 1955 Age: 63 y.o. Encounter Diagnoses Code Name Primary? I25.10 Coronary artery disease involving [place] coronary artery of [place] heart without angina pectoris Yes Z98.61 Post [...] W | | | | | | [place], | | | | | | [place] [address] | | | | | | [phone] | | | | | | | | +--------+ + + + + documented as of this encounter Visit Diagnoses + + | Diagnosis | + + | Coronary artery disease involving [place] coronary artery of [place] heart without | | angina pectoris - Primary | + + | Post PTCA Postsurgical percutaneous transluminal coronary angioplasty status | + + documented in this encounter"
--- OUTSIDE RECORDS SUMMARY | ~2019-01-10 | XMS | Encounter Summary ---
Demographics + + + | Address | [address] | | | [place] [address] | + + + | Home Phone [...] [place] | | | | | [address] | | + + + + + Care Team Providers + +------+ + | Care Rigging Foreman Name | Role | Phone | + [...] | Telephone | [facility] [place] | [place], | Medication Related | | 2018 | | CARDIOLOGY [address] | ADARSH Santo [address] | | | | | [place], | [place], | | | | | [place] [address] | [place] [address] | | | | | [phone] | [phone] | | | | | | | [...] W | | | | | | [place], | | | | | | [place] [address] | | | | | | [phone] | | | | | | | [...] | starting 11/30/2018 | | | | [place] coronary | until 12/01/2019 | | | | artery of [place] | | | | | heart without angina | | | | | pectoris | | + +--------+ + + documented as of this encounter Visit Diagnoses + + | Diagnosis | + + | Coronary artery disease involving [place] coronary artery of [place] heart without | | angina pectoris - Primary | + + documented in this encounter"
--- OUTSIDE RECORDS SUMMARY | ~2019-01-10 | XMS | Clinical Summary ---
Demographics + + + | Address | [address] [place] [address] [address] | | | [place] [address] | + + + | Home Phone | | + + + | Preferred Language | Unknown | + + + | Marital Status | | + + + | Temple Affiliation | Unknown | + + + | Race | Unknown | + + + | Ethnic Group | Unknown | + + + Author + + + | Author | [facility] [employer] | + + + | Organization | [facility] [employer] [facility] | + + + | Address | Unknown | + + + | Phone | Unavailable | + + + Support + + +---------+ + | Name | Relationship | Address | Phone | + + +---------+ + | Venice Mckeon | ECON | Unknown | | + + +---------+ + Care Team Providers + +------+ + | Care Spray Applicator Name | Role | Phone | + [...] + + | Father | | | [place] | | | | (Age | | [...] RON MCKEON Date of : 1955 | [facility] | | Performing Physician: Rocio | RADIOLOGY | | [facility] | | | | | [...] MV A Rohan: 0.86 m/s MV Dec Cooper: 3.26 m/s2 | | | MV DecT: [...] | 21.47 mmHg TR Vmax: 2.31 m/s Supervisor Assembly And Packing: DBS Authenticated | | | by: Rocio Barfieldvan Report Date/Time: 11-04-2018 19:16:25 | | + + + + + | Procedure Note | + + | Sebastian, Rad Results In - 11/04/2018 7:20 PM PST Patient Name: Belkys MCKEON of | | : 5Accession: [id number] Physician: Rocio | | Alsamara INDICATIONS------ | [...] | 5.92 cmLVPWd: 1.01 cmLVOT Area: 3.17 sx7RKMA Diam: 2.01 cm%FS: 15.56 %EF(Teich): | | [...] mlLAESV Index (A-L): 42.88 ml/m2LAAs A2C: 24.92 ss9NVXUS A-L | | A2C: 95.08 mlLALs A2C: 5.54 cmLAAs A4C: 19.37 vx2BIDTV A-L A4C: 70.66 mlLALs | | A4C: 4.50 cmRAAs: 18.79 aq9NBPSV A-L: 67.38 mlRAESV MOD: 63.17 mlRALs: 4.44 | | cmTAPSE: 2.12 cmAV maxP.82 mmHgAV meanP.56 mmHgAV Vmax: 1.30 m/Emil | | Vmean: 0.88 m/Emil VTI: 25.33 cmAVA Vmax: 2.55 cm2AVA (VTI): 2.49 fg8DRUJ (Vmax): | | 0.00 cm2/m2AVAI (VTI): 0.00 cm2/m2LVOT maxP.40 mmHgLVOT meanP.91 | | mmHgLVSI Dopp: 29.85 ml/m2LVSV Dopp: 63.29 mlLVOT Vmax: 1.04 m/sLVOT Vmean: 0.64 | | m/sLVOT VTI: 19.92 cmMV A Rohan: 0.86 m/sMV Dec Cooper: 3.26 m/s2MV DecT: 218.32 | | msMV E Rohan: 0.71 m/sMV E/A Ratio: 0.82 MV PHT: 63.31 msMVA By PHT: 3.47 | | fj2Vvnkbv e': 0.04 m/sSeptal E/e': 15.51 Lateral e': 0.06 m/sLateral E/e': 10.91 | | RAP: 5 mmHgRVSP: 26.47 mmHgTR maxP.47 mmHgTR Vmax: 2.31 m/sSonographer: | | DBSAuthenticated by: Elinagwendolyn [facility] CenterReport Date/Time: 11-04-2018 19:16:25IMPRESSION:1. | | [...] A Rohan: 0.86 m/s | |MV Dec [place]: 3.26 m/s2 | |MV DecT: 218.32 ms [...] |TR Vmax: 2.31 m/s | | | |Supervisor Assembly And Packing: DBS | |Authenticated by: Rocio Pearl | [...] | [address] | [place] [address] | | + + + + + [...] +------+-------+ + | MEDICAID | [place] | [id number] | | | [address] | | | N | | | | [place] | | | [place] | | | | [address] | | | [place] | | | | | + +--------+ [...] | Self | [birth year] | Home: | [facility] [address] | | | al/Fam | | 1956 | [phone] | [address] [place], | | | [place] | | | [phone] | [place] [address] | + +--------+ +--------+ + +
--- OUTSIDE RECORDS SUMMARY | ~2019-01-10 | XMS | Encounter Summary ---
Demographics + + + | Address | [address] | | | [place] [address] | + + + | Home Phone | | + + + | Preferred Language | Unknown | + + + | Marital Status | | + + + | Sabianism Affiliation | Unknown | + + + | Race | Unknown | + + + | Ethnic Group | Unknown | + + + Author + + + | Author | [facility] | | | and [place] | + + + | Organization | [facility] | | | and [place] | + + + | Address | Unknown | + + + | Phone | Unavailable | + + + Support + + + + + | Name | Relationship | Address | Phone | + + + + + | Venice Will | ECON | [place] | | | | | [address] | | + + + + + Care Team Providers + +------+ + | Care Industrial Sewer Name | Role | Phone | + [...] + + | 11/18/ | Telephone | [facility] | Jenny, | Blood Pressure | | 2019 | | CARDIOLOGY [address] | [place], BENEFIT SPECIALIST [address] | | | | | [place], | [place], | | | | | [place] [address] | [place] [address] | | | | | [phone] | | | | | | | [...] | | | | | | [place] [address] | | | | | | [phone] | | | | | | | | +--------+ + + + + documented as of this encounter Visit Diagnoses Not on filedocumented in this encounter"
--- OUTSIDE RECORDS SUMMARY | ~2019-01-10 | XMS | Clinical Summary ---
Demographics + + + | Address | [address] [place] [address] [address] | | | [place] [address] | + + + | Home Phone | | + + + | Preferred Language | Unknown | + + + | Marital Status | | + + + | Worship Affiliation | Unknown | + + + | Race | Unknown | + + + | Ethnic Group | Unknown | + + + Author + + + | Author | [facility] | + + + | Organization | [facility] | + + + | Address | Unknown | + + + | Phone | Unavailable | + + + Support + + +---------+ + | Name | Relationship | Address | Phone | + + +---------+ + | [place] Mckeon | ECON | Unknown | | + + +---------+ + Care Team Providers + +------+ + | Care Circus Hand Name | Role | Phone | + [...] + + | Father | | | [place] | | | | (Age | | [...] RON MCKEON Date of : 1955 | [facility] | | Performing Physician: Rocio | RADIOLOGY | | [facility] | | | | | | [...] MV A Rohan: 0.86 m/s MV Dec [place]: 3.26 m/s2 | | | MV DecT: [...] | 21.47 mmHg TR Vmax: 2.31 m/s Carrier Packer: DBS Authenticated | | | by: Rocio Barfield[place] york Report Date/Time: 11-04-2018 19:16:25 | | + + + + + | Procedure Note | + + | Sebastian, Rad Results In - 11/04/2018 7:20 PM PST Patient Name: Belkys MCKEON of | | : 5Accession: [id number] Physician: Rocio | | Alsamara INDICATIONS------ | [...] | 5.92 cmLVPWd: 1.01 cmLVOT Area: 3.17 gi5BIWD Diam: 2.01 cm%FS: 15.56 %EF(Teich): | | [...] mlLAESV Index (A-L): 42.88 ml/m2LAAs A2C: 24.92 hp8THLDI A-L | | A2C: 95.08 mlLALs A2C: 5.54 cmLAAs A4C: 19.37 zd9JFPKB A-L A4C: 70.66 mlLALs | | A4C: 4.50 cmRAAs: 18.79 ra7SEENC A-L: 67.38 mlRAESV MOD: 63.17 mlRALs: 4.44 | | cmTAPSE: 2.12 cmAV maxP.82 mmHgAV meanP.56 mmHgAV Vmax: 1.30 m/Emil | | Vmean: 0.88 m/Emil VTI: 25.33 cmAVA Vmax: 2.55 cm2AVA (VTI): 2.49 xi5OJPC (Vmax): | | 0.00 cm2/m2AVAI (VTI): 0.00 cm2/m2LVOT maxP.40 mmHgLVOT meanP.91 | | mmHgLVSI Dopp: 29.85 ml/m2LVSV Dopp: 63.29 mlLVOT Vmax: 1.04 m/sLVOT Vmean: 0.64 | | m/sLVOT VTI: 19.92 cmMV A Rohan: 0.86 m/sMV Dec [place]: 3.26 m/s2MV DecT: 218.32 | | msMV E Rohan: 0.71 m/sMV E/A Ratio: 0.82 MV PHT: 63.31 msMVA By PHT: 3.47 | | cz3Ombqvg e': 0.04 m/sSeptal E/e': 15.51 Lateral e': 0.06 m/sLateral E/e': 10.91 | | RAP: 5 mmHgRVSP: 26.47 mmHgTR maxP.47 mmHgTR Vmax: 2.31 m/sSonographer: | | DBSAuthenticated by: Elinagwendolyn [facility] Date/Time: 11-04-2018 19:16:25IMPRESSION:1. | | This [...] A Rohan: 0.86 m/s | |MV Dec [place]: 3.26 m/s2 | |MV DecT: 218.32 ms [...] |TR Vmax: 2.31 m/s | | | |Carrier Packer: DBS | |Authenticated by: Rocio Pearl | [...] | [address] | [place] [address] | | + + + + + [...] +------+-------+ + | MEDICAID | [place] | [id number] | | | [address] | | | N | | | | [place] | | | [place] | | | | [address] | | | DRIVER OPERATOR | | | | | + +--------+ [...] | Self | [birth year] | Home: | [facility] [address] | | | al/Fam | | 1956 | [phone] | [address] [place], | | | [place] | | | [address] | [place] [address] | + +--------+ +--------+ + +
--- OUTSIDE RECORDS SUMMARY | ~2019-01-10 | XMS | Encounter Summary ---
Demographics + + + | Address | [address] | | | [place] [address] | + + + | Home Phone | | + + + | Preferred Language | Unknown | + + + | Marital Status | | + + + | Uatsdin Affiliation | Unknown | + + + | Race | Unknown | + + + | Ethnic Group | Unknown | + + + Author + + + | Author | [facility] | | | and [place] | + + + | Organization | [facility] | | | and [place] | + + + | Address | Unknown | + + + | Phone | Unavailable | + + + Support + + + + + | Name | Relationship | Address | Phone | + + + + + | [place] Will | ECON | [place] | | | | | [address] | | + + + + + Care Team Providers + +------+ + | Care Body Maker Name | Role | Phone | [...] + | 10/27/ | Telephone | [facility] | Jenny, | Other (medication | | 2018 | | CARDIOLOGY [address] | ADARSH Santo [address] | issue) | | | | [place], | [place], | | | | | [place] [address] | [place] [address] | | | | | [phone] | | | | | | | [...] W | | | | | | [place], | | | | | | [place] [address] | | | | | | [phone] | | | | | | | [...]
--- OUTSIDE RECORDS SUMMARY | ~2019-01-10 | XMS | Clinical Summary ---
Demographics + + + | Address | [address] | | | [place] [address] | + + + | Home Phone [...] [place] | | | | | [address] | | + + + + + Care Team Providers + +------+ + | Care Insole Bottom Filler Name | Role | Phone | + [...] | | Activ | | (VITAMIN D-3) [id number] | a week. | | | | [...] | | nasal spray | nasal spray [place] 2 | | | | | | [...] e | | spray | aerosol spray [place] | | | | | | | [...] | 11/12/2017 | + + + | PRODUCTION ASSEMBLER-D (AICD) Medtronic 10/16/17 EULOGIO Darby | 10/19/2017 | + + + + + | Overview: Formatting of this note might be different from the | | original. MODEL NAME MODEL# SERIAL# DATE IMPLANTED GENERATOR | | Medtronic [id number] 10/16/17 RV LEAD Medtronic [id number] | | [id number] 10/16/17 A LEAD Medtronic [id number] 10/16/17 | | Coronary Sinus LEAD Medtronic [id number] 10/16/17 | | Indication: ischemic cardiomyopathy with reduced EF 30-35% Last | | Assessment & Plan: Medtronic AICD Placed in 10/2017 at [facility]. | | A:-Patient ventricular paced 100% this morning. No arrhythmias on | | telemetry.P:-No acute therapy. Continue current therapy. | | | | Last Assessment & Plan: Medtronic AICD Placed in 10/2017 at [facility]. | | | |A: | |-Patient [...] + + + | Overview: S/P Medtronic PRODUCTION ASSEMBLER-D 10-16-17 Dr Darby, [facility] Scan | | 10/13/17 shows No [...] + + | Coronary artery disease involving [place] coronary artery of | 04/06/2017 | | inupiat heart without angina pectoris | | + [...] + + + | Acute anterior wall RI | 04/03/2017 | + + + + [...] involving | | | | | | [place]upiat coronary | | | | | | artery of inupiat | | | | | | heart without angina | | | | | | pectoris (Primary | | | | | | Dx); Post PTCA | +--------+ + + + + | 12/07/ | Office | | Randy Figueroa, | Coronary artery | | 2018 | Visit | | MD | disease involving | | | | | | [place]upiat coronary | | | | | | artery of inupiat | | | | | | heart [...] | | | | | (Primary Dx); PRODUCTION ASSEMBLER-D | | | | | | (AICD) Medtronic | | | | | | 10/16/17 [facility] Wilner; | | | | | | Ischemic | | | | | | cardiomyopathy | +--------+ + + + + | 12/02/ | Office | | Randy Figueroa, | Coronary artery | | 2018 | Visit | | MD | disease involving | | | | | | inupiat coronary | | | | | | artery of inupiat | | | | | | heart [...] involving | | | | | | inupiat coronary | | | | | | artery of inupiat | | | | | | heart [...] involving | | | | | | inupiat coronary | | | | | | artery of inupiat | | | | | | heart without angina | | | | | | pectoris (Primary | | | | | | Dx); Post PTCA | +--------+ + + + 11/25/ | Orders Only | | Lilian [...] involving | | | | | | inupiat coronary | | | | | | artery of inupiat | | | | | | heart [...] involving | | | | | | inupiat coronary | | | | | | artery of inupiat | | | | | | heart [...] whether | | | | | | inupiat or | | | | | | [...] whether | | | | | | inupiat or | | | | | | transplanted heart | | | | | | (Primary Dx) | +--------+ + + + + from [...] + | Blood Pressure | 104/72 | 09/21/2018 0954 PST | + + [...] | | | | | | [place] [address] | | | | | | [phone] | | | | | | | [...] Generi | Left: | TERUMO LORIN | [id number] | 12/05/ | [id number] | | [id number]: Qty: 1 | c | Groin | - TERU | [id number] | 2019 | / | | on 05/19/2018 by The, | | | | 20 | | /[id number] | | Khurram Isabel MD | | | | | | 371 | + +--------+--------+ +--------+--------+--------+ | Radar Systems Engineer-D MedtronicImplanted: | Implan | | MEDTRONIC - [...] N/A: | ISAACS | | 12/29/ | [id number] | | Eluting Coronary Stent System | | Am[place]ay | DIAGNOSTICS | | 2020 | 0-18 / | | Implanted: Qty: 1 on | | ry | - DAINA | | | | | 03/15/2017 by Monse Ross, | | | | | | /[id number] | | MD | | | | | | 61 | + +--------+--------+ +--------+--------+--------+ | Xience Alpine Everolimus | Stent | N/A: | ISAACS | | 11/03/ | [id number] | | Eluting Coronary Stent System | | Mackay | DIAGNOSTICS | | 2019 | 0-23 / | | Implanted: Qty: 1 on | | ry | - DAINA | | | | | 03/15/2017 by Monse Ross, | | | | | | /[id number] | | MD | | | | | | 41 | + +--------+--------+ +--------+--------+--------+ | Kit Perclose Proglide 6fr - | | Right: | SHITAL | [id number] | | 40281- | | [id number]: Qty: 1 | | Alessiain | VASCULAR - | [id number] | | 03 / / | | on 05/19/2018 by Missael, | | | ABVA | 89 | | | | Khurram Isabel MD | | | | | | | + +--------+--------+ +--------+--------+--------+ | Kit Perclose Proglide 6fr - | | Right: | ISAACS | [id number] | | 68571- | | [id number]: Qty: 1 | | Alessiain | VASCULAR - | [id number] | | 03 / | | on 05/19/2018 by Missael, [...] | e | 23:59 PDT | Interrogation PRODUCTION ASSEMBLER-D | procedure are in the | | REMOTE | | | (PSYCHIATRIC) Medtronic | results section. | | | | | 10/16/17 [facility] Wilner | | | | | | Ischemic [...] Last 3 Months Results External Lab: BUN (12/20/2018)Only the most recent of 3 results within [...] +-------+ + + + External Lab: Glucose (12/20/2018)Only the most recent of 3 results within [...] +-------+ + + + External Lab: Calcium (12/20/2018)Only the most recent of 3 results within [...] + + + External Lab: Carbon Dioxide (12/20/2018)Only the most recent of 2 results within [...] +-------+ + + + External Lab: Chloride (12/20/2018)Only the most recent of 3 results within [...] +-------+ + + + External Lab: Potassium (12/20/2018)Only the most recent of 3 results within [...] +-------+ + + + External Lab: Sodium (12/20/2018)Only the most recent of 3 results within [...] +-------+ + + + External Lab: eGFR (12/20/2018)Only the most recent of 3 results within [...] Blood | + + External Lab: Creatinine (12/20/2018)Only the most recent of 3 results within [...] + + | Blood | + + Device Interrogation - Remote (12/05/2018 23:59 PDT) + + + | Narrative | Performed At | + + + | Randy | DONNA | | MD [place] 11/05/2018 10:33Date of Remote Interrogation: | | | 10/19/18 Refer to [employer] documentation and remote PDF scanned into | | | [facility] for remote interrogation results. Data collected by [...] | [employer] | MODA | [id number] | | [phone] | | Medica | | MEDICAID HMO | HEALTH | | 018-Pr | 1 | | id | | | MDCD | | esent | | | | | | HMO [place] | | | | | | + +--------+ +--------+ +---------+--------+ | [employer] ADMIN | VETERA | [id number] | 07/24/ | | | Indemn | | | NS | | 2016-P | | | ity | | | ADMIN | | resent | | | | | | [place] | | | | | | | | [place] | | | | | | + +--------+ +--------+ +---------+--------+ | [employer] ADMIN | VETERA | [id number] | 07/24/ | | | Indemn | [...] | + +--------+ +--------+ + + | SumanBob | Person | Self | [birth year] | | [address] | | | al/Fam | | 1956 | [phone] | [place] | | | [place] | | | 8 (Home) | [address] | + +--------+ +--------+ + + Advance Directives Patient has advance care planning documents, and code status on file. For more information, please contact:[facility] [place] [address] + + + + + | Code [...]
--- OUTSIDE RECORDS SUMMARY | ~2019-01-10 | XMS | Encounter Summary ---
Demographics + + + | Address | [address] | | | [place] [address] | + + + | Home Phone [...] [place] | | | | | [address] | | + + + + + Care Team Providers + +------+ + | Care Chummer Name | Role | Phone | + +------+ + | Young Haque DO | PCP | | + +------+ + Encounter Details +--------+ + + + + | Date | Type | Department | Care Team | Description | +--------+ + + + + | 03/19/ | Abstract | [facility] [place] | Jenny, | | | 2018 | | CARDIOLOGY [address] | Hansa DROP FORGE HAND [address] | | | | | [place], | [place], | | | | | [place] [address] | [place] [address] | | | | | [phone] | [phone] | | | | | | | [...] [place], | | | | | | [place] [address] | | | | | | [phone] | | | | | | | [...]
--- OUTSIDE RECORDS SUMMARY | ~2019-01-10 | XMS | Encounter Summary ---
Demographics + + + | Address | [address] | | | [place] [address] | + + + | Home Phone [...] [place] | | | | | [address] | | + + + + + Care Team Providers + +------+ + | Care Motion Picture Printer Name | Role | Phone | [...] | Telephone | [facility] [place] | [place], | Medication Related | | 2018 | | CARDIOLOGY [address] | ADARSH Santo [address] | | | | | [place], | [place], | | | | | [place] [address] | [place] [address] | | | | | [phone] | [phone] | | | | | | | [...] W | | | | | | [place], | | | | | | [place] [address] | | | | | | [phone] | | | | | | | [...] | starting 11/30/2018 | | | | [place] coronary | until 12/01/2019 | | | | artery of [place] | | | | | heart without angina | | | | | pectoris | | + +--------+ + + documented as of this encounter Visit Diagnoses + + | Diagnosis | + + | Coronary artery disease involving [place] coronary artery of [place] heart without | | angina pectoris - Primary | + + documented in this encounter"
--- OUTSIDE RECORDS SUMMARY | ~2019-01-10 | XMS | Encounter Summary ---
Demographics + + + | Address | [address] | | | [place] [address] | + + + | Home Phone [...] | [place] | | | | | [address] | | + + + + + Care Team Providers + +------+ + | Care Dry Plasterer Name | Role | Phone | + [...] | | | involving | [address] [place] | | | | | [place] | [place], [place] | [place], [place] | | | | | coronary | [address] | [address] | | | | | artery of | Phone: | Phone: | | | | | [place] heart | [phone] | [phone] | | | | | without | Fax: | Fax: | | | | | angina | [phone] | [phone] | | | | | pectoris | | | + + + + + + + Encounter Details +--------+---------+ + + + | Date | Type | Department | Care Team | Description | +--------+---------+ + + + | 11/18/ | Office | [facility] | Randy Figueroa, | Coronary artery | | 2019 | Visit | MED CTR CARDIAC | [address] | disease involving | | | | REHABILITATION [address] | [place], | [place] coronary | | | | [address] [place] | [place] [address] | artery of [place] | | | | [place] [address] | [phone] | heart without angina | | | | [phone] | | pectoris (Primary | | | [...] might be different from the orig [place]. [facility] [address] [facility] [address] Cardiac Rehab Date: 11/18/2018 Patient Information Patient Name: Bob Will Date of : 1955 Age: 63 y.o. Encounter Diagnoses Code Name Primary? I25.10 Coronary artery disease involving [place] coronary artery of [place] heart without angina pectoris Yes Z98.61 Post [...] [place], | | | | | | [place] [address] | | | | | | [phone] | | | | | | | | +--------+ + + + + documented as of this encounter Visit Diagnoses + + | Diagnosis | + + | Coronary artery disease involving [place] coronary artery of [place] heart without | | angina pectoris - Primary | + + | Post PTCA Postsurgical percutaneous transluminal coronary angioplasty status | + + documented in this encounter"
--- OUTSIDE RECORDS SUMMARY | ~2019-01-10 | XMS | Encounter Summary ---
Demographics + + + | Address | [address] | | | [place] [address] | + + + | Home Phone [...] | [place] | | | | | [address] | | + + + + + Care Team Providers + +------+ + | Care Housing Officer Name | Role | Phone | [...] | | | involving | [address] [place] | | | | | kluti kaah | [place], [place] | [place] | | | | | coronary | [address] | [address] | | | | | artery of | Phone: | Phone: | | | | | kluti kaah heart | [phone] | [phone] | | | | | without | Fax: | Fax: | | | | | angina | [phone] | [phone] | | | | | pectoris | | | + + + + + + + Encounter Details +--------+---------+ + + + | Date | Type | Department | Care Team | Description | +--------+---------+ + + + | 10/21/ | Office | [facility] | Randy Figueroa, | Coronary artery | | 2019 | Visit | MED CTR CARDIAC | MD [address] | disease, angina | | | | REHABILITATION [address], | presence | | | | [address] [place] | [place] [address] | unspecified, | | | | [place] [address] | [phone] | unspecified vessel | | | | [phone] | | or lesion type, | | | | | | unspecified whether | | | | | | kluti ka[place] or | | | | | | [...] of this encounter Progress Notes Ana Thomas, CARTOGRAPHY TECHNICIAN - 10/21/2018 1000 PSTFormatting of this note might be different fro m the original. [facility] CARDIAC REHABILITATION [address] [facility] [address] Cardiac Rehab Date: 10/21/2018 Patient Information Patient Name: Bob Will Date of : 1955 Age: 62 y.o. Encounter Diagnoses Code Name Primary? I25.10 Coronary artery disease, angina presence unspecified, unspecified vessel or lesi on type, unspecified whether kluti kaah or transplanted heart Yes Number of Visits [...] which is much higher than Ashok's norm. threat monitoring analyst was placed. No significant change noted from [...] had came directly to rehab from the OR clinic where changes in medication was made. Ashok states they stopped his Entresto and increased Lasix to two tabs daily. also notified to [facility] Ashok. Any abnormal vital signs or rhythm [...] [place], | | | | | | [place] [address] | | | | | | [phone] | | | | | | | | +--------+ + + + + documented as of this encounter Visit Diagnoses + + | Diagnosis | + + | Coronary artery disease, angina presence unspecified, unspecified vessel or lesion | | type, unspecified whether kluti kaah or transplanted heart - Primary | + + documented in this encounter"
--- OUTSIDE RECORDS SUMMARY | ~2019-01-10 | XMS | Encounter Summary ---
Demographics + + + | Address | [address] | | | [place] [address] | + + + | Home Phone [...] [place] | | | | | [address] | | + + + + + Care Team Providers + +------+ + | Care Coal Inspector Name | Role | Phone | + +------+ + | Young Haque DO | PCP | | + +------+ + Encounter Details +--------+ + + + + | Date | Type | Department | Care Team | Description | +--------+ + + + + | 03/28/ | Abstract | [facility] [place] | Jenny, | | | 2019 | | CARDIOLOGY [address] | [place] [employer] [address] | | | | | [place], | [place], | | | | | [place] [address] | [place] [address] | | | | | [phone] | [phone] | | | | | | | [...] W | | | | | | [place], | | | | | | [place] [address] | | | | | | [phone] | | | | | | | [...]
--- OUTSIDE RECORDS SUMMARY | ~2019-01-10 | XMS | Encounter Summary ---
Demographics + + + | Address | [address] | | | [place] [address] | + + + | Home Phone [...] | [place] | | | | | [address] | | + + + + + Care Team Providers + +------+ + | Care Distribution A Class Lineman Name | Role | Phone | + [...] | | | involving | [address] | [place] | | | | | nak[place] | [place] | [place] | | | | | coronary | [address] | [address] | | | | | artery of | Phone: | Phone: | | | | | naknek heart | [phone] | [phone] | | | | | without | Fax: | Fax: | | | | | angina | [phone] | [phone] | | | | | pectoris | | | + + + + + + + Encounter Details +--------+---------+ + + + | Date | Type | Department | Care Team | Description | +--------+---------+ + + + | 12/02/ | Office | [facility] | Randy Figueroa, | Coronary artery | | 2019 | Visit | MED CTR CARDIAC | MD [address] | disease involving | | | | REHABILITATION [address] | [address], | naknek coronary | | | | [address] [place] | [place] [address] | artery of naknek | | | | [place] [address] | [phone] | heart without angina | | | | [phone] | | pectoris (Primary | | | [...] note might be different from the orig [facility] CARDIAC REHABILITATION [address] [facility] [address] Cardiac Rehab Date: 12/02/2018 Patient Information Patient Name: oBb Will Date of : 1955 Age: 63 y.o. Encounter Diagnoses Code Name Primary? I25.10 Coronary artery disease involving naknek coronary artery of naknek heart without angina pectoris Yes Z98.61 Post [...] | | | | | | [place], | | | | | | [place] [address] | | | | | | [phone] | | | | | | | | +--------+ + + + + documented as of this encounter Visit Diagnoses + + | Diagnosis | + + | Coronary artery disease involving naknek coronary artery of naknek heart without | | angina pectoris - Primary | + + | Post PTCA Postsurgical percutaneous transluminal coronary angioplasty status | + + documented in this encounter"
--- OUTSIDE RECORDS SUMMARY | ~2019-01-10 | XMS | Encounter Summary ---
Demographics + + + | Address | [address] | | | [place] [address] | + + + | Home Phone [...] [place] | | | | | [address] | | + + + + + Care Team Providers + +------+ + | Care Emulsion Coater Name | Role | Phone | + [...] NEPHROLOGY [address] | MD [address] | | | | | [address] | [address] [place] | | | | | [place], [place] | [place] [address] | | | | | [address] | [phone] | | | | | [phone] | | | +--------+ + + + [...] | | | | | | [place] [address] | | | | | | [phone] | | | | | | | [...]
--- OUTSIDE RECORDS SUMMARY | ~2019-01-10 | XMS | Encounter Summary ---
Demographics + + + | Address | [address] | | | [place] [address] | + + + | Home Phone [...] | [place] | | | | | [address] | | + + + + + Care Team Providers + +------+ + | Care Full Stack Software Developer Name | Role | Phone | [...] | | | involving | [address] | [place] | | | | | [place] | [place] | [place] | | | | | coronary | [address] | [address] | | | | | artery of | Phone: | Phone: | | | | | [place] heart | [phone] | [phone] | | | | | without | Fax: | Fax: | | | | | angina | [phone] | [phone] | | | | | pectoris | | | + + + + + + + Encounter Details +--------+---------+ + + + | Date | Type | Department | Care Team | Description | +--------+---------+ + + + | 10/28/ | Office | [facility] | Randy Figueroa, | Coronary artery | | 2019 | Visit | MED CTR CARDIAC | MD [address] | disease, angina | | | | REHABILITATION [address] | [address] [place], | presence | | | | [place] | [place] [address] | unspecified, | | | | [place] [address] | [phone] | unspecified vessel | | | | [phone] | | or lesion type, | | | | | | unspecified whether | | | | | | [place] or | | | | | [...] Esther Fields RN - 10/28/[address] [facility] CARDIAC REHABILITATION [address] [facility] [address] Cardiac Rehab Date: 10/28/2018 Patient Information Patient Name: Bob Will Date of : 1955 Age: 62 y.o. Encounter Diagnoses Code Name Primary? I25.10 Coronary artery disease, angina presence unspecified, unspecified vessel or lesi on type, unspecified whether capitan grande band or transplanted heart Yes Z98.61 Post PTCA [...] W | | | | | | [place], | | | | | | [place] [address] | | | | | | [phone] | | | | | | | | +--------+ + + + + documented as of this encounter Visit Diagnoses + + | Diagnosis | + + | Coronary artery disease, angina presence unspecified, unspecified vessel or lesion | | type, unspecified whether capitan [place] band or transplanted heart - Primary | + + | Post PTCA Postsurgical percutaneous transluminal coronary angioplasty status | + + documented in this encounter"
--- OUTSIDE RECORDS SUMMARY | ~2019-01-10 | XMS | Encounter Summary ---
Demographics + + + | Address | [address] | | | [place] [address] | + + + | Home Phone [...] [place] | | | | | [address] | | + + + + + Care Team Providers + +------+ + | Care Scallop Raker Name | Role | Phone | + [...] [address] | | | | | [place], | [place], | | | | | [place] [address] | [place] [address] | | | | | [phone] | [phone] | | | | | | | [...] | | | | | | [place] [address] | | | | | | [phone] | | | | | | | | +--------+ + + + + documented as of this encounter Visit Diagnoses Not on filedocumented in this encounter"
--- OUTSIDE RECORDS SUMMARY | ~2019-01-10 | XMS | Clinical Summary ---
Demographics + + + | Address | [address] [place] [address] [address] | | | [place] [address] | + + + | Home Phone | | + + + | Preferred Language | Unknown | + + + | Marital Status | | + + + | Hoahaoism Affiliation | NRP | + + + [...] | | | | | [place] [address] | | + + + + + Care Team Providers + +------+ + | Care Title Curator Name | Role | Phone | + +------+ + | Chato Matson MD | PP | | + +------+ + Source Comments EULOGIO is fully live on both [facility] Ambulatory and [facility] InPatient.[facility] Allergies No Known Allergies Current Medications [...] resynchronization therapy | 10/17/2017 | | defibrillator (CINNAMON GRINDER-D) | | + + + | Influenza, [...] edema. 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 | | -secretions improving, cough strong [...] stayExtubated 03/22, started on | | [place] [id number] infusion begun 03/22 for daily goal -1 [...] | | | INC | | | [id number] | | Tejal Pettit MD | | | | | | X / | | | | | | | | /[id number] | | | | | | | | [address] | + +------+--------+ +--------+--------+--------+ Results Not on [...] | PPO | [phone] | [address] [address] [place] | | | CROSS | | | [address] | [place] [address] | | | [employer]ERA | | | | | | | L | | | | | + +--------+ +--------+ + + | MEDICAID [place] | OHP | [id number] | Medica | [phone] | [address] [address] | | | PLUS | | id | [phone] | [place] [address] | | | OPEN | | | [...] | Self [birth year] | Home: | [address] | | | al/Fam | | 1956 | [phone] | [address] [place] | | | taiwo | | | [phone] | [address] | + +--------+ +--------+ + +
--- OUTSIDE RECORDS SUMMARY | ~2019-01-10 | XMS | Encounter Summary ---
Demographics + + + | Address | [address] | | | [place] [address] | + + + | Home Phone [...] [place] | | | | | [address] | | + + + + + Care Team Providers + +------+ + | Care Tuber Helper Name | Role | Phone | [...] Monitor | CARDIOLOGY [address] | [address] [place] | Interrogation | | | | [place], | [place], | (Primary Dx); CAN SEALER-D | | | | [place] [address] | [place] [address] | (AICD) Medtronic | | | | [phone] | [phone] | 10/16/17 [facility] Wil[place]; | | | | | | Ischemic [...] W | | | | | | [place], | | | | | | [place] [address] | | | | | | [phone] | | | | | | | [...] | e | 23:59 PDT | Interrogation CAN SEALER-D | procedure are in the | | [...] remote PDF scanned into | | | [facility] for remote interrogation results. Data collected by RONNY Butt | | | AFLONSO CHAPMAN Presenting rhythm: atrial sensed ventricular paced [...] | cardiac defibrillator | + + | CAN SEALER-D ASHLEE) Medtronic 10/16/17 EULOGIO Darby | + + | Ischemic cardiomyopathy Other specified forms of chronic ischemic heart disease | + + documented in this encounter"
--- OUTSIDE RECORDS SUMMARY | ~2019-01-10 | XMS | Encounter Summary ---
Demographics + + + | Address | [address] | | | [place] [address] | + + + | Home Phone [...] [place] | | | | | [address] | | + + + + + Care Team Providers + +------+ + | Care Groundhand Name | Role | Phone | + [...] | | | | | | [place] [address] | | | | | | [phone] | | | +--------+ + + + [...] | | | | | | [place] [address] | | | | | | [phone] | | | | | | | | +--------+ + + + + documented as of this encounter Visit Diagnoses Not on filedocumented in this encounter"
--- OUTSIDE RECORDS SUMMARY | ~2019-01-10 | XMS | Encounter Summary ---
Demographics + + + | Address | [address] | | | [place] [address] | + + + | Home Phone [...] [place] | | | | | [address] | | + + + + + Care Team Providers + +------+ + | Care Anaesthetic Technician Name | Role | Phone | [...] Monitor | CARDIOLOGY [address] | [address] [place] | Interrogation | | | | [place], | [place], | (Primary Dx); DRAW MACHINE OPERATOR-D | | | | [place] [address] | [place] [address] | (AICD) Medtronic | | | | [phone] | [phone] | 10/16/17 [facility] [place]; | | | | | | Ischemic [...] W | | | | | | [place], | | | | | | [place] [address] | | | | | | [phone] | | | | | | | [...] | e | 23:59 PDT | Interrogation DRAW MACHINE OPERATOR-D | procedure are in the [...] scanned into | | | [facility] for remote interrogation results. Data [...] | cardiac defibrillator | + + | DRAW MACHINE OPERATOR-D ASHLEE) Medtronic 10/16/17 EULOGIO Darby | + + | Ischemic cardiomyopathy Other specified forms of chronic ischemic heart disease | + + documented in this encounter"
--- OUTSIDE RECORDS SUMMARY | ~2019-01-10 | XMS | Encounter Summary ---
Demographics + + + | Address | [address] | | | [place] [address] | + + + | Home Phone [...] | [place] | | | | | [address] | | + + + + + Care Team Providers + +------+ + | Care Supervisor Finishing Name | Role | Phone | + [...] | | | involving | [address] [place] | | | | | [place] | [place] | [place] | | | | | coronary | [address] | [address] | | | | | artery of | Phone: | Phone: | | | | | eastern [place] heart | [phone] | [phone] | | | | | without | Fax: | Fax: | | | | | angina | [phone] | [phone] | | | | | pectoris | | | + + + + + + + Encounter Details +--------+---------+ + + + | Date | Type | Department | Care Team | Description | +--------+---------+ + + + | 11/30/ | Office | [facility] | Carolina Randy, | Coronary artery | | 2019 | Visit | MED CTR CARDIAC | MD [address] | disease involving | | | | REHABILITATION [address] | [place], | [place] coronary | | | | [address] [place] | [place] [address] | artery of [place] | | | | [place] [address] | [phone] | heart without angina | | | | [phone] | | pectoris (Primary | | | [...] note might be different from the orig [facility] CARDIAC REHABILITATION [address] [facility] [address] Cardiac Rehab Date: 11/30/2018 Patient Information Patient [...] W | | | | | | [place], | | | | | | [place] [address] | | | | | | [phone] | | | | | | | [...]
--- OUTSIDE RECORDS SUMMARY | ~2019-01-10 | XMS | Clinical Summary ---
Demographics + + + | Address | [address] | | | [place] [address] | + + + | Home Phone [...] [place] | | | | | [address] | | + + + + + Care Team Providers + +------+ + | Care Automotive Sales Associate Name | Role | Phone | [...] | | Activ | | (VITAMIN D-3) [address] | a week. | | | | [...] | | nasal spray | nasal spray [place] 2 | | | | | | [...] e | | spray | aerosol spray [place] | | | | | | | [...] | 11/12/2017 | + + + | BANDER HAND-D (AICD) Medtronic 10/16/17 EULOGIO Darby | 10/19/2017 | + + + + + | Overview: Formatting of this note might be different from the | | original. MODEL NAME MODEL# SERIAL# DATE IMPLANTED GENERATOR | | Medtronic [id number] 10/16/17 RV LEAD Medtronic [id number] | | [id number] 10/16/17 A LEAD Medtronic [id number] 10/16/17 | | Coronary Sinus LEAD Medtronic 4598 [id number] 10/16/17 | | Indication: ischemic cardiomyopathy with reduced EF 30-35% Last | | Assessment & Plan: Medtronic AICD Placed in 10/2017 at [facility]. | | A:-Patient ventricular paced 100% this morning. No arrhythmias on | | telemetry.P:-No acute therapy. Continue current therapy. | | | | Last Assessment & Plan: Medtronic AICD Placed in 10/2017 at [facility]. | | | |A: | [...] + + + | Overview: S/P Medtronic BANDER HAND-D 10-16-17 Dr Darby, [facility] Scan | | 10/13/17 shows No [...] + + | Coronary artery disease involving caddo coronary artery of | 04/06/2017 | | caddo heart without angina pectoris | | + [...] + + + | Acute anterior wall [place] | 04/03/2017 | + + + + [...] involving | | | | | | caddo coronary | | | | | | artery of caddo | | | | | | heart without angina | | | | | | pectoris (Primary | | | | | | Dx); Post PTCA | +--------+ + + + + | 12/07/ | Office | | Randy Figueroa, | Coronary artery | | 2018 | Visit | | MD | disease involving | | | | | | caddo coronary | | | | | | artery of caddo | | | | | | heart [...] | | | | | (Primary Dx); BANDER HAND-D | | | | | | (AICD) Medtronic | | | | | | 10/16/17 [facility] Wilner; | | | | | | Ischemic | | | | | | cardiomyopathy | +--------+ + + + + | 12/02/ | Office | | Randy Figueroa, | Coronary artery | | 2018 | Visit | | MD | disease involving | | | | | | caddo coronary | | | | | | artery of caddo | | | | | | heart [...] involving | | | | | | caddo coronary | | | | | | artery of caddo | | | | | | heart [...] involving | | | | | | caddo coronary | | | | | | artery of caddo | | | | | | heart [...] involving | | | | | | caddo coronary | | | | | | artery of caddo | | | | | | heart [...] involving | | | | | | caddo coronary | | | | | | artery of caddo | | | | | | heart [...] whether | | | | | | caddo or | | | | | | [...] whether | | | | | | caddo or | | | | | | [...] [place], | | | | | | [place] [address] | | | | | | [phone] | | | | | | | [...] Generi | Left: | TERUMO LORIN | [id number] | 12/05/ | [id number] | | [id number]: Qty: 1 | c | Groin | - TERU | [id number] | 2019 | / | | on 05/19/2018 by The, | | | | 20 | | /[id number] | | Khurram Isabel MD | | | | | | 371 | + +--------+--------+ +--------+--------+--------+ | Chairman And Ceo-D MedtronicImplanted: | Implan | | MEDTRONIC - [...] N/A: | ISAACS | | 12/29/ | [id number] | | Eluting Coronary Stent System | | [place] | DIAGNOSTICS | | 2020 | 0-18 / | | Implanted: Qty: 1 on | | ry | - DAINA | | | | | 03/15/2017 by Monse Ross, | | | | | | /[id number] | | MD | | | | | | 60 | + +--------+--------+ +--------+--------+--------+ | Xience Alpine Everolimus | Stent | N/A: | ISAACS | | 11/03/ | [id number] | | Eluting Coronary Stent System | | [place] | DIAGNOSTICS | | 2019 | 0-23 / | | Implanted: Qty: 1 on | | ry | - DAINA | | | | | 03/15/2017 by Monse Ross, | | | | | | /[id number] | | MD | | | | | | 41 | + +--------+--------+ +--------+--------+--------+ | Kit Perclose Proglide 6fr - | | Right: | SHITAL | [id number] | | 83515- | | [id number]: Qty: 1 | | Alessiain | VASCULAR - | [id number] | | 03 / / | | on 05/19/2018 by Missael, | | | ABVA | 89 | | | | Khurram Isabel MD | | | | | | | + +--------+--------+ +--------+--------+--------+ | Kit Perclose Proglide 6fr - | | Right: | ISAACS | [id number] | | [address]131- | | [id number]: Qty: 1 | | Alessiain | VASCULAR - | [id number] | | 03 / | | on [...] | e | 23:59 PDT | Interrogation BANDER HAND-D | procedure are in the | | REMOTE | | | ([facility]) Medtronic | results section. | | | | | 10/16/17 [facility] Wilner | | | | | [...] remote PDF scanned into | | | [facility] for remote interrogation results. Data collected [...] | [employer] | MODA | [id number] | | [phone] | | Medica | | MEDICAID HMO | HEALTH | | 018-Pr | 1 | | id | | | MDCD | | esent | | | | | | [place] | | | | | | + +--------+ +--------+ +---------+--------+ | [employer] ADMIN | VETERA | [id number] | 07/24/ | | | Indemn | | | NS | | 2016-P | | | ity | | | ADMIN | | resent | | | | | | [place] | | | | | | | | [place] | | | | | | + +--------+ +--------+ +---------+--------+ | [employer] ADMIN | VETERA | [id number] | 07/24/ | | | Indemn | [...] [place] | | | 8 (Home) | [address] | + +--------+ +--------+ + + Advance Directives Patient has advance care planning documents, and code status on file. For more information, please contact:[facility] [place] [place] [id number] + + + + + | Code [...]
--- OUTSIDE RECORDS SUMMARY | ~2019-01-10 | XMS | Encounter Summary ---
Demographics + + + | Address | [address] | | | [place] [address] | + + + | Home Phone [...] [place] | | | | | [address] | | + + + + + Care Team Providers + +------+ + | Care Alignment Mechanic Name | Role | Phone | + +------+ + | Young Haque DO | PCP | | + +------+ + Encounter Details +--------+ + + + + | Date | Type | Department | Care Team | Description | +--------+ + + + + | 03/28/ | Abstract | [facility] [place] | Jenny, | | | 2019 | | CARDIOLOGY [address] ROLLER ENGINEER [address] | | | | | [place], | [place], | | | | | [place] [address] | [place] [address] | | | | | [phone] | [phone] | | | | | | | [...] | | | | | | [place] [address] | | | | | | [phone] | | | | | | | [...]
--- OUTSIDE RECORDS SUMMARY | ~2019-01-10 | XMS | Encounter Summary ---
Demographics + + + | Address | [address] [place] [address] [address] | | | [place] [address] | + + + | Home Phone | | + + + | Preferred Language | Unknown | + + + | Marital Status | | + + + | Advent Affiliation | Unknown | + + + | Race | Unknown | + + + | Ethnic Group | Unknown | + + + Author + + + | Author | [employer] | + + + | Organization | [facility] | + + + | Address | Unknown | + + + | Phone | Unavailable | + + + Support + + +---------+ + | Name | Relationship | Address | Phone | + + +---------+ + | Venice Mckeon | ECON | Unknown | | + + +---------+ + Care Team Providers + +------+ + | Care Induction Heating Equipment Setter Name | Role | Phone | [...] HF chronicity, | | | | | [id number] | unspecified heart | | | | [...] RON MCKEON Date of : 1955 | [facility] | | Performing Physician: Rocio | RADIOLOGY | | [place] | | | | | | INDICATIONS [...] MV A Rohan: 0.86 m/s MV Dec Vernon: 3.26 m/s2 | | | MV DecT: [...] | 21.47 mmHg TR Vmax: 2.31 m/s Geothermal Sheet Metal Worker: ANJANA Authenticated | | | by: Rocio Pearl Report Date/Time: 11-04-2018 19:16:25 | | + + + + + | Procedure Note | + + | Sebastian, Rad Results In - 11/04/2018 7:20 PM PST Patient Name: Belkys MCKEON of | | : 5Accession: [id number] Physician: Rocio | | Alsamara INDICATIONS------ | [...] | 5.92 cmLVPWd: 1.01 cmLVOT Area: 3.17 hp1QYAH Diam: 2.01 cm%FS: 15.56 %EF(Teich): | | [...] mlLAESV Index (A-L): 42.88 ml/m2LAAs A2C: 24.92 [id number] A-L | | A2C: 95.08 mlLALs A2C: 5.54 cmLAAs A4C: 19.37 ta5LMZHS A-L A4C: 70.66 mlLALs | | A4C: 4.50 cmRAAs: 18.79 xa6QXXBF A-L: 67.38 mlRAESV MOD: 63.17 mlRALs: 4.44 | | cmTAPSE: 2.12 cmAV maxP.82 mmHgAV meanP.56 mmHgAV Vmax: 1.30 m/Emil | | Vmean: 0.88 m/Emil VTI: 25.33 cmAVA Vmax: 2.55 cm2AVA (VTI): 2.49 an8PMLO (Vmax): | | 0.00 cm2/m2AVAI (VTI): 0.00 cm2/m2LVOT maxP.40 mmHgLVOT meanP.91 | | mmHgLVSI Dopp: 29.85 ml/m2LVSV Dopp: 63.29 mlLVOT Vmax: 1.04 m/sLVOT Vmean: 0.64 | | m/sLVOT VTI: 19.92 cmMV A Rohan: 0.86 m/sMV Dec Vernon: 3.26 m/s2MV DecT: 218.32 | | msMV E Rohan: 0.71 m/sMV E/A Ratio: 0.82 MV PHT: 63.31 msMVA By PHT: 3.47 | | oq4Jotugm e': 0.04 m/sSeptal E/e': 15.51 Lateral e': 0.06 m/sLateral E/e': 10.91 | | RAP: 5 mmHgRVSP: 26.47 mmHgTR maxP.47 mmHgTR Vmax: 2.31 m/sSonographer: | | DBSAuthenticated by: Rocio AlswinthropraReport Date/Time: 11-04-2018 19:16:25IMPRESSION:1. | | This was [...] A Rohan: 0.86 m/s | |MV Dec Vernon: 3.26 m/s2 | |MV DecT: 218.32 ms [...] |TR Vmax: 2.31 m/s | | | |Geothermal Sheet Metal Worker: ANJANA | |Authenticated by: Rocio Licoeloy | [...] | [address] | [place] [address] | | + + + + + in this encounter Visit Diagnoses + + | Diagnosis | + + | Congestive heart failure, unspecified HF chronicity, unspecified heart failure type | | (HCC) | + +"
--- OUTSIDE RECORDS SUMMARY | ~2019-01-10 | XMS | Encounter Summary ---
Demographics + + + | Address | [address] | | | [place] [address] | + + + | Home Phone [...] | [place] | | | | | [address] | | + + + + + Care Team Providers + +------+ + | Care Trolley Coach Driver Name | Role | Phone | [...] | | | involving | [address] [place] | | | | | [place] | [place] | [place] | | | | | coronary | [address] | [address] | | | | | artery of | Phone: | Phone: | | | | | [place] heart | [phone] | [phone] | | | | | without | Fax: | Fax: | | | | | angina | [phone] | [phone] | | | | | pectoris | | | + + + + + + + Encounter Details +--------+---------+ + + + | Date | Type | Department | Care Team | Description | +--------+---------+ + + + | 12/07/ | Office | [facility] | Randy Figueroa, | Coronary artery | | 2019 | Visit | MED CTR CARDIAC | MD [address] | disease involving | | | | REHABILITATION [address] | [address] [place], | [place] coronary | | | | [address] [place] | [place] [address] | artery of [place] | | | | [place] [address] | [phone] | heart without angina | | | | [phone] | | pectoris (Primary | | | [...] note might be different from the orig [facility] CARDIAC REHABILITATION [address] [facility] [address] Cardiac Rehab Date: 12/07/2018 Patient Information Patient Name: Bob Will Date of : 1955 Age: 63 y.o. Encounter Diagnoses Code Name Primary? I25.10 Coronary artery disease involving [place] coronary artery of [place] heart without angina pectoris Yes Z98.61 Post [...] W | | | | | | [place], | | | | | | [place] [address] | | | | | | [phone] | | | | | | | | +--------+ + + + + documented as of this encounter Visit Diagnoses + + | Diagnosis | + + | Coronary artery disease involving [place] coronary artery of [place] heart without | | angina pectoris - Primary | + + | Post PTCA Postsurgical percutaneous transluminal coronary angioplasty status | + + documented in this encounter"
--- OUTSIDE RECORDS SUMMARY | ~2019-01-10 | XMS | Encounter Summary ---
Demographics + + + | Address | [address] | | | [place] [address] | + + + | Home Phone [...] [place] | | | | | [address] | | + + + + + Care Team Providers + +------+ + | Care Conservation Science Teacher Name | Role | Phone | [...] | | | involving | [address] | [address] [place] | | | | | [place] | [place] | [place] | | | | | coronary | [address] | [address] | | | | | artery of | Phone: | Phone: | | | | | [place] heart | [phone] | [phone] | | | | | without | Fax: | Fax: | | | | | angina | [phone] | [phone] | | | | | pectoris | | | + + + + + + + Encounter Details +--------+---------+ + + + | Date | Type | Department | Care Team | Description | +--------+---------+ + + + | 12/09/ | Office | [facility] | Randy Figueroa, | Coronary artery | | 2019 | Visit | MED CTR CARDIAC | MD [address] | disease involving | | | | REHABILITATION [address] | [address] [place], | [place] coronary | | | | [address] [place] | [place] [address] | artery of [place] | | | | [place] [address] | [phone] | heart without angina | | | | [phone] | | pectoris (Primary | | | [...] note might be different from the orig [facility] CARDIAC REHABILITATION [address] [facility] [address] Cardiac Rehab Discharge Date: 12/09/2018 Patient Information Patient Name: Bob Will Date of : 1955 Age: 63 y.o. Referring Provider: Randy Figueroa MD Encounter Diagnoses Code Name Primary? 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 He has recently increased his metoprolol dose and is on Entresto. He arrives in electric Mobitto heelchair and has been inactive. Fall Ri [...] control. Also began walking with his around [employer] 3 days a week along with chasing [...] Healthy Dietary Education Date: 08/03/18 -Referral to Family Worker: Date: -DVD: Healthy Eating For Life Date: [...] exercise until stable. Date: Range: -Referral to Planning Feeder Date: Education Points listed below- Date Completed: [...] Unforeseen circumstances makes the constant trip from [place] to not be a viable option a [...] W | | | | | | [address] [place], | | | | | | [place] [address] | | | | | | [phone] | | | | | | | | +--------+ + + + + documented as of this encounter Visit Diagnoses + + | Diagnosis | + + | Coronary artery disease involving [place] coronary artery of [place] heart without | | angina pectoris - Primary | + + | Post PTCA Postsurgical percutaneous transluminal coronary angioplasty status | + + documented in this encounter
--- OUTSIDE RECORDS SUMMARY | ~2019-01-10 | XMS | Encounter Summary ---
Demographics + + + | Address | [address] | | | [place] [address] | + + + | Home Phone [...] | [place] | | | | | [address] | | + + + + + Care Team Providers + +------+ + | Care Tray Casting Machine Operator Name | Role | Phone [...] | | | involving | [address] [place] | | | | | [place] | [place] | [place] | | | | | coronary | [address] | [address] | | | | | artery of | Phone: | Phone: | | | | | [place] heart | [phone] | [phone] | | | | | without | Fax: | Fax: | | | | | angina | [phone] | [phone] | | | | | pectoris | | | + + + + + + + Encounter Details +--------+---------+ + + + | Date | Type | Department | Care Team | Description | +--------+---------+ + + + | 11/09/ | Office | [facility] | Randy Figueroa, | Coronary artery | | 2019 | Visit | MED CTR CARDIAC | MD [address] | disease involving | | | | REHABILITATION [address] | [facility] [place], | [place] coronary | | | | [address] [place] | [place] [address] | artery of [place] | | | | [place] [address] | [phone] | heart without angina | | | | [phone] | | pectoris (Primary | | | [...] of this encounter Progress Jonah Coker-Cheri Kendrick, SUPERINTENDENT OPERATIONS DIVISION - 11/09/2018 1000 PSTFormatting of this note might be diff erent from the original. [facility] CARDIAC REHABILITATION [address] [facility] [address] Cardiac Rehab Date: 11/09/2018 Patient Information Patient Name: Bob Will Date of : 1955 Age: 63 y.o. Encounter Diagnoses Code Name Primary? I25.10 Coronary artery disease involving [place] coronary artery of [place] heart without angina pectoris Yes Number of [...] | | | | | | [place] [address] | | | | | | [phone] | | | | | | | | +--------+ + + + + documented as of this encounter Visit Diagnoses + + | Diagnosis | + + | Coronary artery disease involving [place] coronary artery of [place] heart without | | angina pectoris - Primary | + + documented in this encounter"
--- OUTSIDE RECORDS SUMMARY | ~2019-01-10 | XMS | Encounter Summary ---
Demographics + + + | Address | [address] | | | [place] [address] | + + + | Home Phone [...] | [place] | | | | | [address] | | + + + + + Care Team Providers + +------+ + | Care Oven Laborer Name | Role | Phone | + [...] | | | involving | [address] | [place] | | | | | [place] | [place], [place] | [place], [place] | | | | | coronary | [address] | [address] | | | | | artery of | Phone: | Phone: | | | | | [place] heart | [phone] | [phone] | | | | | without | Fax: | Fax: | | | | | angina | [phone] | [phone] | | | | | pectoris | | | + + + + + + + Encounter Details +--------+---------+ + + + | Date | Type | Department | Care Team | Description | +--------+---------+ + + + | 10/21/ | Office | [facility] | Randy Figueroa, | Coronary artery | | 2019 | Visit | MED CTR CARDIAC | MD [address] | disease, angina | | | | REHABILITATION [address] | [place], | presence | | | | [address] [place] | [place] [address] | unspecified, | | | | [place] [address] | [phone] | unspecified vessel | | | | [phone] | | or lesion type, | | | | | | unspecified whether | | | | | | [place] or | | | | | | [...] of this encounter Progress Notes Ana Thomas, COMPUTER HARDWARE ENGINEER - 10/21/2018 1000 PSTFormatting of this note might be different fro m the original. [facility] CARDIAC REHABILITATION [address] [facility] [address] Cardiac Rehab Date: 10/21/2018 Patient Information Patient Name: Bob Will Date of : 1955 Age: 62 y.o. Encounter Diagnoses Code Name Primary? I25.10 Coronary artery disease, angina presence unspecified, unspecified vessel or lesi on type, unspecified whether [place] or transplanted heart Yes Number of Visits [...] which is much higher than Ashok's norm. hospital monitor was placed. No significant change noted [...] to two tabs daily. also notified to [facility] Ashok. Any abnormal vital signs or rhythm [...] | | | | | | [place] [address] | | | | | | [phone] | | | | | | | | +--------+ + + + + documented as of this encounter Visit Diagnoses + + | Diagnosis | + + | Coronary artery disease, angina presence unspecified, unspecified vessel or lesion | | type, unspecified whether [place] or transplanted heart - Primary | + + documented in this encounter"
--- OUTSIDE RECORDS SUMMARY | ~2019-01-10 | XMS | Encounter Summary ---
Demographics + + + | Address | [address] | | | [place] [address] | + + + | Home Phone [...] | [place] | | | | | [address] | | + + + + + Care Team Providers + +------+ + | Care Under Cutting Machine Operator Name | Role | [...] | | | involving | [address] | [address] [place] | | | | | [place] | [place] | [place] | | | | | coronary | [address] | [address] | | | | | artery of | Phone: | Phone: | | | | | [place] heart | [phone] | [phone] | | | | | without | Fax: | Fax: | | | | | angina | [phone] | [phone] | | | | | pectoris | | | + + + + + + + Encounter Details +--------+---------+ + + + | Date | Type | Department | Care Team | Description | +--------+---------+ + + + | 11/09/ | Office | [facility] | Randy Figueroa, | Coronary artery | | 2019 | Visit | MED CTR CARDIAC | MD [address] | disease involving | | | | REHABILITATION [address] | [address], | [place] coronary | | | | [address] [place] | [place] [address] | artery of [place] | | | | [place] [address] | [phone] | heart without angina | | | | [phone] | | pectoris (Primary | | | [...] of this encounter Progress Jonah Coker-Cheri Kendrick, PORTAL ARCHITECT - 11/09/2018 1000 PSTFormatting of this note might be diff erent from the original. [facility] CARDIAC REHABILITATION [address] [facility] [address] Cardiac Rehab Date: 11/09/2018 Patient Information Patient Name: Bob Will Date of : 1955 Age: 63 y.o. Encounter Diagnoses Code Name Primary? I25.10 Coronary artery disease involving [place] coronary artery of [place] heart without angina pectoris Yes Number of [...] | | | | | | [place] [address] | | | | | | [phone] | | | | | | | | +--------+ + + + + documented as of this encounter Visit Diagnoses + + | Diagnosis | + + | Coronary artery disease involving [place] coronary artery of [place] heart without | | angina pectoris - Primary | + + documented in this encounter"
--- OUTSIDE RECORDS SUMMARY | ~2019-01-10 | XMS | Encounter Summary ---
Demographics + + + | Address | [address] | | | [place] [address] | + + + | Home Phone [...] [place] | | | | | [address] | | + + + + + Care Team Providers + +------+ + | Care Transfer Table Operator Name | Role | Phone | + +------+ + | Young Haque DO | PCP | | + +------+ + Encounter Details +--------+ + + + + | Date | Type | Department | Care Team | Description | +--------+ + + + + | 03/19/ | Abstract | [facility] [place] | Jenny, | | | 2018 | | CARDIOLOGY [address] | [place] CARDIAC EXERCISE PHYSIOLOGIST [address] | | | | | [place], | [place], | | | | | [place] [address] | [place] [address] | | | | | [phone] | [phone] | | | | | | | [...] | | | | | | [place] [address] | | | | | | [phone] | | | | | | | [...]
--- OUTSIDE RECORDS SUMMARY | ~2019-01-10 | XMS | Encounter Summary ---
Demographics + + + | Address | [address] [place] [address] [address] | | | [place] [address] | + + + | Home Phone | | + + + | Preferred Language | Unknown | + + + | Marital Status | | + + + | Quaker Affiliation | Unknown | + + + | Race | Unknown | + + + | Ethnic Group | Unknown | + + + Author + + + | Author | Cassandra [employer] | + + + | Organization | [facility] | + + + | Address | Unknown | + + + | Phone | Unavailable | + + + Support + + +---------+ + | Name | Relationship | Address | Phone | + + +---------+ + | Venice Mckeon | ECON | Unknown | | + + +---------+ + Care Team Providers + +------+ + | Care Person Investigator Name | Role | Phone | [...] HF chronicity, | | | | | [address] | unspecified heart | | | | [...] RON MCKEON Date of : 1955 | [facility] | | Performing Physician: Rocio | RADIOLOGY | | [place] | | | | | | INDICATIONS [...] MV A Rohan: 0.86 m/s MV Dec Terry: 3.26 m/s2 | | | MV DecT: [...] | 21.47 mmHg TR Vmax: 2.31 m/s Fibreglass Laminator: ANJANA Authenticated | | | by: Rocio Pearl Report Date/Time: 11-04-2018 19:16:25 | | + + + + + | Procedure Note | + + | Sebastian, Rad Results In - 11/04/2018 7:20 PM PST Patient Name: Belkys MCKEON of | | : 5Accession: [id number] Physician: Rocio | | Alsamara INDICATIONS------ | [...] | 5.92 cmLVPWd: 1.01 cmLVOT Area: 3.17 tj7KASV Diam: 2.01 cm%FS: 15.56 %EF(Teich): | | [...] mlLAESV Index (A-L): 42.88 ml/m2LAAs A2C: 24.92 hw4VKXIC A-L | | A2C: 95.08 mlLALs A2C: 5.54 cmLAAs A4C: 19.37 ej3ZTFFA A-L A4C: 70.66 mlLALs | | A4C: 4.50 cmRAAs: 18.79 vi3TSYPP A-L: 67.38 mlRAESV MOD: 63.17 mlRALs: 4.44 | | cmTAPSE: 2.12 cmAV maxP.82 mmHgAV meanP.56 mmHgAV Vmax: 1.30 m/Emil | | Vmean: 0.88 m/Emil VTI: 25.33 cmAVA Vmax: 2.55 cm2AVA (VTI): 2.49 mg3ZXXK (Vmax): | | 0.00 cm2/m2AVAI (VTI): 0.00 cm2/m2LVOT maxP.40 mmHgLVOT meanP.91 | | mmHgLVSI Dopp: 29.85 ml/m2LVSV Dopp: 63.29 mlLVOT Vmax: 1.04 m/sLVOT Vmean: 0.64 | | m/sLVOT VTI: 19.92 cmMV A Rohan: 0.86 m/sMV Dec Terry: 3.26 m/s2MV DecT: 218.32 | | msMV E Rohan: 0.71 m/sMV E/A Ratio: 0.82 MV PHT: 63.31 msMVA By PHT: 3.47 | | qb0Tfiahr e': 0.04 m/sSeptal E/e': 15.51 Lateral e': 0.06 m/sLateral E/e': 10.91 | | RAP: 5 mmHgRVSP: 26.47 mmHgTR maxP.47 mmHgTR Vmax: 2.31 m/sSonographer: | | DBSAuthenticated by: Rocio AlswhitehallraReport Date/Time: 11-04-2018 19:16:25IMPRESSION:1. | | This was [...] A Rohan: 0.86 m/s | |MV Dec Terry: 3.26 m/s2 | |MV DecT: 218.32 ms [...] |TR Vmax: 2.31 m/s | | | |Fibreglass Laminator: ANJANA | |Authenticated by: Rocio Licoeloy | [...] | [address] | [place] [address] | | + + + + + in this encounter Visit Diagnoses + + | Diagnosis | + + | Congestive heart failure, unspecified HF chronicity, unspecified heart failure type | | (HCC) | + +"
--- OUTSIDE RECORDS SUMMARY | ~2019-01-10 | XMS | Encounter Summary ---
Demographics + + + | Address | [address] | | | [place] [address] | + + + | Home Phone [...] | [place] | | | | | [address] | | + + + + + Care Team Providers + +------+ + | Care Alternative Energy Technician Name | Role | Phone | [...] | | | involving | [address] | [place] | | | | | [facility] [place] | [place] | [place] | | | | | coronary | [address] | [address] | | | | | artery of | Phone: | Phone: | | | | | [facility] [place] heart | [phone] | [phone] | | | | | without | Fax: | Fax: | | | | | angina | [phone] | [phone] | | | | | pectoris | | | + + + + + + + Encounter Details +--------+---------+ + + + | Date | Type | Department | Care Team | Description | +--------+---------+ + + + | 11/23/ | Office | [facility] | Rahullindacathy Lindaangusleo, | Acute on chronic | | 2019 | Visit | MED CTR CARDIAC | MD [address] | systolic congestive | | | | REHABILITATION [address] | [place], | heart failure (HCC) | | | | [address] [place] | [place] [address] | (Primary Dx) | | | | [place] [address] | [phone] | | | | | [phone] | | | +--------+---------+ + + + [...] of this encounter Progress Jonah Cokre-Cheri Kendrick, SENIOR QA ENGINEER - 11/23/2018 1000 PDTFormatting of this note might be diff erent from the original. [facility] CARDIAC REHABILITATION [address] [facility] [address] Cardiac Rehab Date: 11/23/2018 Patient Information Patient [...] [place], | | | | | | [place] [address] | | | | | | [phone] | | | | | | | | +--------+ + + + + documented as of this encounter Visit Diagnoses + + | Diagnosis | + + | Acute on chronic systolic congestive heart failure (HCC) - Primary Acute on chronic | | systolic heart failure | + + documented in this encounter"
--- OUTSIDE RECORDS SUMMARY | ~2019-01-10 | XMS | Encounter Summary ---
Demographics + + + | Address | [address] | | | [place] [address] | + + + | Home Phone [...] [place] | | | | | [address] | | + + + + + Care Team Providers + +------+ + | Care Acid Tester Name | Role | Phone | [...] + | 11/18/ | Telephone | [facility] | Jenny, | Blood Pressure | | 2019 | | CARDIOLOGY [address] | [place], BOOTH CLEANER [address] | | | | | [place], | [place], | | | | | [place] [address] | [place] [address] | | | | | [phone] | [phone] | | | | | | | [...] | | | | | | [place] [address] | | | | | | [phone] | | | | | | | | +--------+ + + + + documented as of this encounter Visit Diagnoses Not on filedocumented in this encounter"
--- OUTSIDE RECORDS SUMMARY | ~2019-01-10 | XMS | Encounter Summary ---
Demographics + + + | Address | [address] | | | [place] [address] | + + + | Home Phone [...] [place] | | | | | [address] | | + + + + + Care Team Providers + +------+ + | Care Stippler Name | Role | Phone | + [...] NEPHROLOGY [address] | MD [address] | | | | | [address] | [address] [place] | | | | | [place], [place] | [place] [address] | | | | | [address] | [phone] | | | | | [phone] | | | +--------+ + + + [...] | | | | | | [place] [address] | | | | | | [phone] | | | | | | | [...]
--- OUTSIDE RECORDS SUMMARY | ~2019-01-10 | XMS | Clinical Summary ---
Demographics + + + | Address | [address] [place] [address] [address] | | | [place] [address] | + + + | Home Phone [...] | | | | | [place] [address] | | + + + + + Care Team Providers + +------+ + | Care Outdoor Studies Director Name | Role | Phone | + +------+ + | Chato Matson MD | PP | | + +------+ + Source Comments EULOGIO is fully live on both [facility] and [facility] Allergies No Known Allergies Current Medications [...] resynchronization therapy | 10/17/2017 | | defibrillator (JUMPBASTING CANVAS BASTER-D) | | + + + | Influenza, [...] edema. 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 | | -secretions improving, cough strong [...] stayExtubated 03/22, started on | | [place] U9Tttbm infusion begun 03/22 for daily goal -1 [...] | | | INC | | | [id number] | | Tejal Pettit MD | | | | | | X / | | | | | | | | /[id number] | | | | | | | | [address] | + +------+--------+ +--------+--------+--------+ Results Not on [...] | PPO | [phone] | [address] [address] [place] | | | CROSS | | | [address] | [place] [address] | | | [employer] | | | | | | | L | | | | | + +--------+ +--------+ + + | MEDICAID [place] | OHP | xxxxxxxx | Medica | [phone] | [address] [address] | | | PLUS | | id | [id number] | [place] [address] | | | OPEN | | | [...] | Self [birth year] | Home: | [address] | | | al/Fam | | 1956 | [phone] | [address] [place] | | | taiwo | | | [address] | [address] | + +--------+ +--------+ + +
--- OUTSIDE RECORDS SUMMARY | ~2019-01-10 | XMS | Encounter Summary ---
Demographics + + + | Address | [address] | | | [place] [address] | + + + | Home Phone [...] [place] | | | | | [address] | | + + + + + Care Team Providers + +------+ + | Care Road Conductor Name | Role | Phone | + [...] | | | involving | [address] [place] | | | | | [place] | MARKO MCGUIRE | [place] | | | | | coronary | [address] | [address] | | | | | artery of | Phone: | Phone: | | | | | [place] heart | [phone] | [phone] | | | | | without | Fax: | Fax: | | | | | angina | [phone] | [phone] | | | | | pectoris | | | + + + + + + + Encounter Details +--------+---------+ + + + | Date | Type | Department | Care Team | Description | +--------+---------+ + + + | 12/09/ | Office | [facility] | Randy Figueroa, | Coronary artery | | 2019 | Visit | MED CTR CARDIAC | MD [address] | disease involving | | | | REHABILITATION [address] | [place], | [place] coronary | | | | [address] [place] | [place] [address] | artery of [place] | | | | [place] [address] | [phone] | heart without angina | | | | [phone] | | pectoris (Primary | | | [...] note might be different from the orig [facility] CARDIAC REHABILITATION [address] [facility] [address] Cardiac Rehab Discharge Date: 12/09/2018 Patient Information Patient Name: Bob Will Date of : 1955 Age: 63 y.o. Referring Provider: Randy Figueroa MD Encounter Diagnoses Code Name Primary? 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 He has recently increased his metoprolol dose and is on Entresto. He arrives in electric Identropy heelchair and has been inactive. Fall Ri [...] control. Also began walking with his around [email or web address] 3 days a week along with chasing [...] Healthy Dietary Education Date: 08/03/18 -Referral to Return To Factory Clerk: Date: -DVD: Healthy Eating For Life Date: [...] exercise until stable. Date: Range: -Referral to Head Baker Date: Education Points listed below- Date Completed: [...] Unforeseen circumstances makes the constant trip from [place] to not be a viable option a [...] W | | | | | | [address] [place], | | | | | | [place] [address] | | | | | | [phone] | | | | | | | | +--------+ + + + + documented as of this encounter Visit Diagnoses + + | Diagnosis | + + | Coronary artery disease involving [place] coronary artery of [place] heart without | | angina pectoris - Primary | + + | Post PTCA Postsurgical percutaneous transluminal coronary angioplasty status | + + documented in this encounter
--- OUTSIDE RECORDS SUMMARY | ~2019-01-10 | XMS | Encounter Summary ---
Demographics + + + | Address | [address] | | | [place] [address] | + + + | Home Phone [...] | [place] | | | | | [address] | | + + + + + Care Team Providers + +------+ + | Care Rn Staff Name | Role | Phone | [...] | | | involving | [address] | [place] | | | | | [place] | MARKO MCGUIRE | MARKO Herrera | | | | | coronary | [address] | [address] | | | | | artery of | Phone: | Phone: | | | | | [place] heart | [phone] | [phone] | | | | | without | Fax: | Fax: | | | | | angina | [phone] | [phone] | | | | | pectoris | | | + + + + + + + Encounter Details +--------+---------+ + + + | Date | Type | Department | Care Team | Description | +--------+---------+ + + + | 12/02/ | Office | [facility] | Randy Figueroa, | Coronary artery | | 2019 | Visit | MED CTR CARDIAC | MD [address] | disease involving | | | | REHABILITATION [address] | [address] [place], | [place] coronary | | | | [address] [place] | [place] [address] | artery of [place] | | | | [place] [address] | [phone] | heart without angina | | | | [phone] | | pectoris (Primary | | | [...] note might be different from the orig [facility] CARDIAC REHABILITATION [address] [facility] [address] Cardiac Rehab Date: 12/02/2018 Patient Information Patient Name: Bob Will Date of : 1955 Age: 63 y.o. Encounter Diagnoses Code Name Primary? I25.10 Coronary artery disease involving [place] coronary artery of [place] heart without angina pectoris Yes Z98.61 Post [...] W | | | | | | [place], | | | | | | [place] [address] | | | | | | [phone] | | | | | | | | +--------+ + + + + documented as of this encounter Visit Diagnoses + + | Diagnosis | + + | Coronary artery disease involving [place] coronary artery of [place] heart without | | angina pectoris - Primary | + + | Post PTCA Postsurgical percutaneous transluminal coronary angioplasty status | + + documented in this encounter"
--- OUTSIDE RECORDS SUMMARY | ~2019-01-10 | XMS | Encounter Summary ---
Demographics + + + | Address | [address] | | | [place] [address] | + + + | Home Phone [...] | [place] | | | | | [address] | | + + + + + Care Team Providers + +------+ + | Care Confectionery Drops Machine Operator Name | Role | Phone [...] | Required | n | artery | ADARHS Jacobs | Rehabilitatio | | | | | disease | [address] | [address] | | | | | involving | [address] | [place] | | | | | [place] | MARKO MCGUIRE | MARKO Herrera | | | | | coronary | [address] | [address] | | | | | artery of | Phone: | Phone: | | | | | [place] heart | [phone] | [phone] | | | | | without | Fax: | Fax: | | | | | angina | [phone] | [phone] | | | | | pectoris | | | + + + + + + + Encounter Details +--------+---------+ + + + | Date | Type | Department | Care Team | Description | +--------+---------+ + + + | 11/25/ | Office | [facility] | Carolina Randy, | Coronary artery | | 2019 | Visit | MED CTR CARDIAC | MD [address] | disease involving | | | | REHABILITATION [address] | [place], | [place] coronary | | | | [place] | [place] [address] | artery of [place] | | | | [place] [address] | [phone] | heart without angina | | | | [phone] | | pectoris (Primary | | | [...] of this encounter Progress Jonah Coker-Cheri Kendrick, HR DIRECTOR - 11/25/2018 1000 PDTFormatting of this note might be diff erent from the original. [facility] CARDIAC REHABILITATION [address] [facility] [address] Cardiac Rehab Date: 11/25/2018 Patient Information Patient [...] W | | | | | | [place], | | | | | | [place] [address] | | | | | | [phone] | | | | | | | | +--------+ + + + + documented as of this encounter Visit Diagnoses + + | Diagnosis | + + | Coronary artery disease involving [place] coronary artery of [place] heart without | | angina pectoris - Primary | + + | Post PTCA Postsurgical percutaneous transluminal coronary angioplasty status | + + documented in this encounter"
--- OUTSIDE RECORDS SUMMARY | ~2019-01-10 | XMS | Encounter Summary ---
Demographics + + + | Address | [address] | | | [place] [address] | + + + | Home Phone [...] | [place] | | | | | [address] | | + + + + + Care Team Providers + +------+ + | Care City Solicitor Name | Role | Phone | + [...] | | | involving | [address] | [place] | | | | | [place] | MARKO MCGUIRE | MARKO Herrera | | | | | coronary | [address] | [address] | | | | | artery of | Phone: | Phone: | | | | | [place] heart | [phone] | [phone] | | | | | without | Fax: | Fax: | | | | | angina | [phone] | [phone] | | | | | pectoris | | | + + + + + + + Encounter Details +--------+---------+ + + + | Date | Type | Department | Care Team | Description | +--------+---------+ + + + | 12/07/ | Office | [facility] | Randy Figueroa, | Coronary artery | | 2019 | Visit | MED CTR CARDIAC | MD [address] | disease involving | | | | REHABILITATION [address] | [place], | [place] coronary | | | | [address] [place] | [place] [address] | artery of [place] | | | | [place] [address] | [phone] | heart without angina | | | | [phone] | | pectoris (Primary | | | [...] note might be different from the orig [facility] CARDIAC REHABILITATION [address] [facility] [address] Cardiac Rehab Date: 12/07/2018 Patient Information Patient [...] W | | | | | | [place], | | | | | | [place] [address] | | | | | | [phone] | | | | | | | [...]
--- OUTSIDE RECORDS SUMMARY | ~2019-01-10 | XMS | Encounter Summary ---
Demographics + + + | Address | [address] | | | [place] [address] | + + + | Home Phone [...] [place] | | | | | [address] | | + + + + + Care Team Providers + +------+ + | Care I&C Tech Name | Role | Phone | [...] | 12/06/ | Refill | [facility] | Jenny, | Medication Refill | | 2018 | | CARDIOLOGY [address] | ADARSH S[address] | | | | | [place], | [place], | | | | | [place] [address] | [place] [address] | | | | | [phone] | [phone] | | | | | | | [...] | | | | | | [place] [address] | | | | | | [phone] | | | | | | | | +--------+ + + + + documented as of this encounter Visit Diagnoses Not on filedocumented in this encounter"
--- OUTSIDE RECORDS SUMMARY | ~2019-01-10 | XMS | Encounter Summary ---
Demographics + + + | Address | [address] | | | [place] [address] | + + + | Home Phone [...] | [place] | | | | | [address] | | + + + + + Care Team Providers + +------+ + | Care Civil Clerk Name | Role | Phone | + +------+ + | Young Hauqe DO | PCP | | + +------+ [...] | | | involving | [address] | [place] | | | | | [place] | MARKO MCGUIRE | MARKO Herrera | | | | | coronary | [address] | [address] | | | | | artery of | Phone: | Phone: | | | | | [place] heart | [phone] | [phone] | | | | | without | Fax: | Fax: | | | | | angina | [phone] | [phone] | | | | | pectoris | | | + + + + + + + Encounter Details +--------+---------+ + + + | Date | Type | Department | Care Team | Description | +--------+---------+ + + + | 10/28/ | Office | [facility] | Randy Figueroa, | Coronary artery | | 2019 | Visit | MED CTR CARDIAC | MD [address] | disease, angina | | | | REHABILITATION [address] | [address] [place], | presence | | | | [address] [place] | [place] [address] | unspecified, | | | | [place] [address] | [phone] | unspecified vessel | | | | [phone] | | or lesion type, | | [...] Esther Fields RN - 10/28/2018 1000 PST [facility] CARDIAC REHABILITATION [address] [facility] [address] Cardiac Rehab Date: 10/28/2018 Patient Information Patient [...] W | | | | | | [place], | | | | | | [place] [address] | | | | | | [phone] | | | | | | | [...]
--- OUTSIDE RECORDS SUMMARY | ~2019-01-10 | XMS | Encounter Summary ---
Demographics + + + | Address | [address] | | | [place] [address] | + + + | Home Phone [...] | [place] | | | | | [address] | | + + + + + Care Team Providers + +------+ + | Care Business Machine Mechanic Name | Role | Phone [...] | | | involving | [address] | [place] | | | | | [place] | MARKO MCGUIRE | MARKO Herrera | | | | | coronary | [address] | [address] | | | | | artery of | Phone: | Phone: | | | | | [place] heart | [phone] | [phone] | | | | | without | Fax: | Fax: | | | | | angina | [phone] | [phone] | | | | | pectoris | | | + + + + + + + Encounter Details +--------+---------+ + + + | Date | Type | Department | Care Team | Description | +--------+---------+ + + + | 11/25/ | Office | [facility] | Carolina Randy, | Coronary artery | | 2019 | Visit | MED CTR CARDIAC | MD [address] | disease involving | | | | REHABILITATION [address] | [place], | [place] coronary | | | | [address] [place] | [place] [address] | artery of [place] | | | | [place] [address] | [phone] | heart without angina | | | | [phone] | | pectoris (Primary | | | [...] of this encounter Progress Jonah Coker-Cheri Kendrick, INFRASTRUCTURE SOLUTIONS ARCHITECT - 11/25/2018 1000 PDTFormatting of this note might be diff erent from the original. [facility] CARDIAC REHABILITATION [address] [facility] [address] Cardiac Rehab Date: 11/25/2018 Patient Information Patient [...] W | | | | | | [place], | | | | | | [place] [address] | | | | | | [phone] | | | | | | | [...]
--- OUTSIDE RECORDS SUMMARY | ~2019-01-10 | XMS | Encounter Summary ---
Demographics + + + | Address | [address] | | | [place] [address] | + + + | Home Phone [...] [place] | | | | | [address] | | + + + + + Care Team Providers + +------+ + | Care Black Top Raker Name | Role | Phone | [...] + | 10/27/ | Telephone | [facility] | Jenny, | Other (medication | | 2018 | | CARDIOLOGY [address] | ADARSH [address] | issue) | | | | [place], | [place], | | | | | [place] [address] | [place] [address] | | | | | [phone] | [phone] | | | | | | | [...] W | | | | | | [place], | | | | | | [place] [address] | | | | | | [phone] | | | | | | | [...]
--- OUTSIDE RECORDS SUMMARY | 2019-01-10 08:04 | XMS ---
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 Care History Medical/Surgical 10/18/2018 [facility] - Patient is currently established with [facility]. If patient is seen in the ED during business hours. Please contact [facility] at [facility]. Care Recommendation: This patient has had 5 or more Emergency Department visits in the last 12 months.\T\nbsp; Patient requires education on the scope and purpose of the ED as an acute care provider not a Primary Care Provider and should not be utilized for chronic conditions.\T\nbsp; These are guidelines and the provider should exercise clinical judgment when providing care. 12/07/2017 [facility] - Patient is currently utilizing PCP Dr Matson and has been referred to a interior decorator paperhanging. - All chronic conditions please refer to [...] ED please contact Community Health WorkerLamar at [phone]. These are guidelines and the provider should exercise clinical judgment when providing care. E.D. VISIT COUNT (12 MO.) 1 [facility] 1 [facility] 14 [facility] TOTAL 16 NOTE: Visits indicate total known visits. 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 - Personal history of nicotine dependence - Chronic obstructive pulmonary disease, unspecified - Other retirement (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 - Pure hypercholesterolemia, unspecified - Presence of coronary angioplasty implant and graft - Dependence on supplemental oxygen - Chronic systolic (congestive) heart failure - Shortness of breath - Acquired absence of other specified parts of digestive tract 12/11/2018 04:03 [facility] TYPE: Emergency COMPLAINT: - SOB 12/10/2018 06:53 [facility] TYPE: Emergency COMPLAINT: - SOB DIAGNOSES: - Old myocardial infarction - Other extermination inspector (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 - termite exterminator helper (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 - Shortness of breath - Acquired absence of other specified parts of digestive tract - Personal history of nicotine dependence - Presence of coronary angioplasty implant and graft - Chronic obstructive pulmonary disease, unspecified - Hypertensive heart disease with heart failure - Pure hypercholesterolemia, unspecified - Heart failure, unspecified - Presence of automatic (implantable) cardiac defibrillator 11/02/2018 19:26 [facility] TYPE: Emergency COMPLAINT: - SOB 10/29/2018 07:32 [facility] TYPE: Emergency COMPLAINT: - CHEST PAIN DIAGNOSES: - Pure hypercholesterolemia, unspecified - Old myocardial infarction - Chronic obstructive pulmonary disease, unspecified - Essential (primary) hypertension - Personal history of nicotine dependence - Chest pain, unspecified - longterm (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 - Presence of coronary angioplasty implant and graft - Other retirement (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 - Acquired absence of other specified parts of digestive tract - Presence of cardiac pacemaker 10/16/2018 06:03 [facility] TYPE: Emergency COMPLAINT: - SOB 08/26/2018 11:[address] [facility] TYPE: Emergency DIAGNOSES: - low bp - Adverse effect of beta-adrenoreceptor antagonists, initial encounter - Weakness - Hypotension 08/18/2018 00:07 [facility] TYPE: Emergency COMPLAINT: - SOB DIAGNOSES: - Hypertensive heart disease with heart failure - Disorder of kidney and ureter, unspecified - Personal history of nicotine dependence - Other retirement (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 - Heart failure, unspecified - Shortness of breath - Old myocardial infarction - Chronic obstructive pulmonary disease with (acute) exacerbation - Pure hypercholesterolemia, unspecified 08/09/2018 09:56 [facility] TYPE: Emergency COMPLAINT: - L HIP PAIN/NO INJURY DIAGNOSES: - Pain in left hip - Sciatica, left side - Pure hypercholesterolemia, unspecified - Essential (primary) hypertension - Other extermination inspector (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 - Old myocardial infarction 06/26/2018 06:43 [facility] TYPE: Emergency COMPLAINT: - SOB DIAGNOSES: - Heart failure, unspecified - Shortness of breath - Hypertensive heart disease with heart failure - Chronic obstructive pulmonary disease with (acute) exacerbation - Other retirement (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 06/17/2018 02:41 [facility] TYPE: Emergency COMPLAINT: - SOB DIAGNOSES: - Other retirement (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 - Dyspnea, unspecified - Essential (primary) hypertension - Presence of coronary angioplasty implant and graft - 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 exterminator helper (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 - Personal history of nicotine dependence - Shortness of breath 05/01/2018 07:47 [facility] TYPE: Emergency DIAGNOSES: - Chest pain, unspecified - Non-ST elevation (NSTEMI) myocardial infarction - Acute pulmonary edema - Shortness of Breath 05/01/2018 03:23 [facility] TYPE: Emergency COMPLAINT: - SOB DIAGNOSES: - Shortness of breath - termite exterminator helper (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 - Non-ST elevation (NSTEMI) myocardial infarction - Heart failure, unspecified - Other retirement (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 - Personal history of nicotine dependence 04/17/2018 06:31 [facility] TYPE: Emergency COMPLAINT: - CHEST PAIN DIAGNOSES: - Personal history of nicotine dependence - Chest pain, unspecified - Precordial pain 01/12/2018 21:19 [facility] TYPE: Emergency COMPLAINT: - NECK PAIN,FLUTTERING HEARTBEAT DIAGNOSES: - Palpitations - 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 exterminator helper (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 - Other retirement (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 - Personal history of nicotine dependence - Essential (primary) hypertension - Cervicalgia INPATIENT VISIT TRACKING (12 MO.) 12/11/2018 09:26 [facility] TYPE: Medical Surgical COMPLAINT: - CHF DIAGNOSES: - Presence of automatic (implantable) cardiac defibrillator - Hyperlipidemia, unspecified - longterm (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 - Personal history of nicotine dependence - Hypotension due to drugs - Chronic obstructive pulmonary disease, unspecified - Cervicalgia - termite exterminator helper (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 of antithrombotics/antiplatelets - Acute on chronic systolic (congestive) heart failure - Other chronic pain - Adverse effect of beta-adrenoreceptor antagonists, initial encounter - Dorsalgia, unspecified - Coronary angioplasty status - Adverse effect of mineralocorticoids and their antagonists, initial encounter - Unspecified place in hospital as the place of occurrence of the external cause - Chronic kidney disease, stage 3 (moderate) - Elevated white blood cell count, unspecified - Atherosclerotic heart disease of [place] coronary artery without angina pectoris - Acute kidney failure, unspecified - Other retirement (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 - Acute and chronic respiratory failure with hypoxia - Type 2 diabetes mellitus with diabetic chronic kidney disease - Gastro-esophageal reflux disease without esophagitis - Dependence on supplemental oxygen - longterm (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 of oral hypoglycemic drugs - Opioid dependence, uncomplicated 11/02/2018 22:09 [facility] TYPE: Medical Surgical COMPLAINT: - DECOMPENSATED HEART FAILURE DIAGNOSES: - Hyperlipidemia, unspecified - Type 2 diabetes mellitus with diabetic chronic kidney disease - Chronic kidney disease, stage 3 (moderate) - Coronary angioplasty status - Personal history of nicotine dependence - Presence of automatic (implantable) cardiac defibrillator - termite exterminator helper (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 of opiate analgesic - Psychophysiologic insomnia - Chronic pain syndrome - Old myocardial infarction - longterm (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 of antithrombotics/antiplatelets - Chronic obstructive pulmonary disease, unspecified - Idiopathic sleep related nonobstructive alveolar hypoventilation - Gastro-esophageal reflux disease without esophagitis - Acute on chronic systolic (congestive) heart failure - Acute respiratory failure with hypoxia - termite exterminator helper (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 of oral hypoglycemic drugs - termite exterminator helper (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 - Other retirement (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 - Atherosclerotic heart disease of [place] coronary artery without angina pectoris 10/16/2018 06:04 [facility] TYPE: Observation COMPLAINT: - DECOMPENSATED HEART FAILURE DIAGNOSES: - Ischemic cardiomyopathy - Type 2 diabetes mellitus with diabetic chronic kidney disease - Chronic pain syndrome - Dependence on supplemental oxygen - Unspecified inflammatory spondylopathy, cervical region - Chronic obstructive pulmonary disease, unspecified - longterm (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 of oral hypoglycemic drugs - Personal history of nicotine dependence - longterm (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 - Presence of automatic (implantable) cardiac defibrillator - Other extermination inspector (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 - Acute on chronic systolic (congestive) heart failure - Presence of coronary angioplasty implant and graft - Atherosclerotic heart disease of [place] coronary artery without angina pectoris - Old myocardial infarction - Chronic respiratory failure with hypoxia - Shortness of breath - Gastro-esophageal reflux disease without esophagitis - termite exterminator helper (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 of opiate analgesic - Hypertensive chronic kidney disease with stage 1 through stage 4 chronic kidney disease, or unspecified chronic kidney disease - longterm (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 of antithrombotics/antiplatelets - Chronic kidney disease, stage 3 (moderate) - Hyperlipidemia, unspecified [facility] DIAGNOSES: - Heart failure, unspecified - Atherosclerotic heart disease of [place] coronary artery without angina pectoris - Family history of other specified conditions - Atherosclerotic heart disease of [place] coronary artery with other forms of angina pectoris - Chronic systolic (congestive) heart failure - Coronary Artery Disease - Other forms of angina pectoris - Ischemic cardiomyopathy - Other forms of dyspnea - Essential (primary) hypertension - Presence of automatic (implantable) cardiac defibrillator 05/01/2018 07:47 [facility]: General Medicine DIAGNOSES: - Acute pulmonary edema - Non-ST elevation (NSTEMI) myocardial infarction - Chest pain, unspecified - Illness, unspecified [email or web address]
--- NOTE | 2019-01-11 13:38 | EKG ---
[facility] [address] [place] [address] Signed Atrial-sensed ventricular-paced rhythm Abnormal ECG When compared with ECG of 24-DEC-2018 08:33, Vent. rate has increased BY 3 BPM Confirmed by KIMMIE GONZALEZ MD ([id number]) on 01/11/2019 1:37:52 PM Electronically Signed By: KIMMIE GONZALEZ MD 01/11/19 1338 PATIENT NAME: RON MCKEON RACHEL Electrocardiogram DATE OF : 53 PHYSICIAN: KIMMIE GONZALEZ MD REPORT #: [id number] REPORT IS CONFIDENTIAL AND NOT TO BE RELEASED WITHOUT AUTHORIZATION
== END 2019-01-10 11:00 | disposition home or self-care (01) ==
LOC: ED 08:01
DX: R06.00 Dyspnea, unspecified (principal); I25.2 Old myocardial infarction; I50.9 Heart failure, unspecified; E78.00 Pure hypercholesterolemia, unspecified; I11.0 Hypertensive heart disease with heart failure; J44.9 Chronic obstructive pulmonary disease, unspecified; Z95.0 Presence of cardiac pacemaker; Z87.891 Personal history of nicotine dependence; Z90.49 Acquired absence of other specified parts of digestive tract; Z79.82 Long term (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; Z79.899 Other long term (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
CPT/HCPCS: 71045; 80053; 84484; 85025; 93005; 93010; 99284-25

== ENCOUNTER 2019-01-14 06:05 | Observation (INO) | payer OTHER ==
[~2019-01-14] VITALS: Ht 175.3 cm; Wt 93.0 kg
--- OUTSIDE RECORDS SUMMARY | ~2019-01-14 | XMS | Encounter Summary ---
Demographics + + + | Address | [address] | | | [place] [address] | + + + | Home Phone | | + + + | Preferred Language | Unknown | + + + | Marital Status | | + + + | Yazidism Affiliation | Unknown | + + + | Race | Unknown | + + + | Ethnic Group | Unknown | + + + Author + + + | Author | [facility] | | | and [place] | + + + | Organization | [facility] | | | and [place] | + + + | Address | Unknown | + + + | Phone | Unavailable | + + + Support + + + + + | Name | Relationship | Address | Phone | + + + + + | [place] | E[place] | [place] | | | | | [address] | | + + + + + Care Team Providers + +------+ + | Care Financial Internship Name | Role | Phone | + +------+ + | Young Haque DO | PCP | | + +------+ + Encounter Details +--------+ + + + + | Date | Type | Department | Care Team | Description | +--------+ + + + + | 03/28/ | Abstract | [facility] [place] | Jenny, | | | 2019 | | CARDIOLOGY [address] MANAGER [address] | | | | | [place], | [place], | | | | | [place] [address] | [place] [address] | | | | | [phone] | | | | | | | [...] | Cardiology | Jenny, | | | 2019 | Visit | | AD[facility] Santo [address] | | | | | | [place], | | | | | | [place] [address] | | | | | | [phone] | | | | | | | | +--------+ + + + + documented as of this encounter Procedures + +--------+ + + + | Procedure Name | Priori | Date/Time | Associated Diagnosis | Comments | | | ty | | | | + +--------+ + + + | EXTERNAL LAB: DONTE | Routin | 12/01/2018 | | Results for this | | | e | | | procedure are in the | | | | | | results section. | + +--------+ + + + | EXTERNAL LAB: | Routin | 12/01/2018 | | Results for this | | GLUCOSE | e | | | procedure are in the | | | | | | results section. | + +--------+ + + + | EXTERNAL LAB: | Routin | 12/01/2018 | | Results for this | | CALCIUM | e | | | procedure are in the | | | | | | results section. | + +--------+ + + + | EXTERNAL LAB: CARBON | Routin | 12/01/2018 | | Results for this | | DIOXIDE | e | | | procedure are in the | | | | | | results section. | + +--------+ + + + | EXTERNAL LAB: | Routin | 12/01/2018 | | Results for this | | CHLORIDE | e | | | procedure are in the | | | | | | results section. | + +--------+ + + + | EXTERNAL LAB: | Routin | 12/01/2018 | | Results for this | | POTASSIUM | e | | | procedure are in the | | | | | | results section. | + +--------+ + + + | EXTERNAL LAB: SODIUM | Routin | 12/01/2018 | | Results for this | | | e | | | procedure are in the | | | | | | results section. | + +--------+ + + + | EXTERNAL LAB: EGFR | Routin | 12/01/2018 | | Results for this | | | e | | | procedure are in the | | | | | | results section. | + +--------+ + + + | EXTERNAL LAB: | Routin | 12/01/2018 | | Results for this | | CREATININE | e | | | procedure are in the | | | | | | results section. | + +--------+ + + + | BASIC METABOLIC | Routin | 12/01/2018 | | Results for this | | PANEL | e | | | procedure are in the | | | | | | results section. | + +--------+ + + + documented in this encounter Results Basic Metabolic Panel (12/01/2018) + +-------+ + + + | Component | Value | Ref Range | Performed | Pathologist | | | | | At | Signature | + +-------+ + + + | Anion Gap | 18 | 7 - 21 mmol/L | | | + +-------+ + + + | Bun/Creatin | 17.4 | 6.0 - 28.6 | | | | ine | | | | | + +-------+ + + + + + | Specimen | + + | Blood | + + External Lab: BUN (12/01/2018) + +--------+ + + + | Component | Value | Ref Range | Performed | Pathologist | | | | | At | Signature | + +--------+ + + + | BUN, | 37 (A) | 6 - 23 | | | | External | | | | | + +--------+ + + + + + | Resulting Agency Comment | + + | [facility] | + + External Lab: Glucose (12/01/2018) + +---------+ + + + | Component | Value | Ref Range | Performed | Pathologist | | | | | At | Signature | + +---------+ + + + | Glucose, | 107 (A) | 70 - 100 | | | | External | | | | | + +---------+ + + + + + | Resulting Agency Comment | + + | [facility] | + + External Lab: Calcium (12/01/2018) + +-------+ + + + | Component | Value | Ref Range | Performed | Pathologist | | | | | At | Signature | + +-------+ + + + | Calcium, | 9.2 | 8.5 - 10.3 | | | | External | | | | | + +-------+ + + + + + | Resulting Agency Comment | + + | [facility] | + + External Lab: Carbon Dioxide (12/01/2018) + +-------+ + + + | Component | Value | Ref Range | Performed | Pathologist | | | | | At | Signature | + +-------+ + + + | Carbon | 25 | 19 - 31 | | | | Dioxide, | | | | | | External | | | | | + +-------+ + + + + + | Resulting Agency Comment | + + | [facility] | + + External Lab: Chloride (12/01/2018) + +-------+ + + + | Component | Value | Ref Range | Performed | Pathologist | | | | | At | Signature | + +-------+ + + + | Chloride, | 101 | 95 - 112 | | | | External | | | | | + +-------+ + + + + + | Resulting Agency Comment | + + | [facility] | + + External Lab: Potassium (12/01/2018) + +-------+ + + + | Component | Value | Ref Range | Performed | Pathologist | | | | | At | Signature | + +-------+ + + + | Potassium, | 5.1 | 3.6 - 5.1 | | | | External | | | | | + +-------+ + + + + + | Resulting Agency Comment | + + | [facility] | + + External Lab: Sodium (12/01/2018) + +-------+ + + + | Component | Value | Ref Range | Performed | Pathologist | | | | | At | Signature | + +-------+ + + + | Sodium, | 139 | 132 - 143 | | | | External | | | | | + +-------+ + + + + + | Resulting Agency Comment | + + | [facility] | + + External Lab: eGFR (12/01/2018) + +--------+ + + + | Component | Value | Ref Range | Performed | Pathologist | | | | | At | Signature | + +--------+ + + + | eGFR, | 31 (A) | 60 - 99,999 | | | | External | | | | | + +--------+ + + + + + | Specimen | + + | Blood | + + + + | Resulting Agency Comment | + + | [facility] | + + External Lab: Creatinine (12/01/2018) + + + + + + | Component | Value | Ref Range | Performed | Pathologist | | | | | At | Signature | + + + + + + | Creatinine, | 2.13 (A) | 0.7 - 1.25 | | | | External | | | | | + + + + + + + + | Specimen | + + | Blood | + + + + | Resulting Agency Comment | + + | [facility] | + + documented in this encounter Visit Diagnoses Not on filedocumented in this encounter"
--- OUTSIDE RECORDS SUMMARY | ~2019-01-14 | XMS | Encounter Summary ---
Demographics + + + | Address | [address] | | | [place] [address] | + + + | Home Phone | | + + + | Preferred Language | Unknown | + + + | Marital Status | | + + + | Orthodox Affiliation | Unknown | + + + | Race | Unknown | + + + | Ethnic Group | Unknown | + + + Author + + + | Author | [facility] | | | and [place] | + + + | Organization | [facility] | | | and [place] | + + + | Address | Unknown | + + + | Phone | Unavailable | + + + Support + + + + + | Name | Relationship | Address | Phone | + + + + + | [place] Will | [place] | [place] | | | | | [address] | | + + + + + Care Team Providers + +------+ + | Care Slope Hoist Operator Name | Role | Phone | + [...] | | | involving | [address] [place] | | | | | [place] | [place] [address] | [place] | | | | | coronary | [address] | [address] | | | | | artery of | Phone: | Phone: | | | | | [place] [facility] | [phone] | [phone] | | | | | without | Fax: | Fax: | | | | | angina | [phone] | [phone] | | | | | pectoris | | | + + + + + + + Encounter Details +--------+---------+ + + + | Date | Type | Department | Care Team | Description | +--------+---------+ + + + | 11/23/ | Office | [facility] | Rahullindacathy Lindaangusleo, | Acute on chronic | | 2019 | Visit | [facility] | MD [address] | systolic congestive | | | | [address]IL[address], | heart failure (HCC) | | | | [address] [place] [place] | [place] [address] | (Primary Dx) | | | | [place] [address] | [phone] | | | | | [phone] | | | +--------+---------+ + + + [...] documented as of this encounter Progress Jonah Coker-Cheri Kendrick, CHAINER - 11/23/2018 1000 PDTFormatting of this note might be diff erent from the original. [facility]ATION [address] [facility] [address] Cardiac Rehab Date: 11/23/2018 Patient Information Patient Name: Bob Will Date [...] note. Electronically signed by: Cheri Harvey RRT, 11/23/2018 12:12 Patient Name: Bob Will/: 1955/ ly signed by Cheri Harvey RRT at 11/23/2018 12:13 PDTdocumented in this encou nter Plan of [...] | | | | | | [place], | | | | | | [place] [address] | | | | | | [phone] | | | | | | | | +--------+ + + + + documented as of this encounter Visit Diagnoses + + | Diagnosis | + + | Acute on chronic systolic congestive heart failure (HCC) - Primary Acute on chronic | | systolic heart failure | + + documented in this encounter"
--- OUTSIDE RECORDS SUMMARY | ~2019-01-14 | XMS | Encounter Summary ---
Demographics + + + | Address | [address] | | | [place] [address] | + + + | Home Phone | | + + + | Preferred Language | Unknown | + + + | Marital Status | | + + + | Tenriism Affiliation | Unknown | + + + | Race | Unknown | + + + | Ethnic Group | Unknown | + + + Author + + + | Author | [facility] | | | and [place] | + + + | Organization | [facility] | | | and [place] | + + + | Address | Unknown | + + + | Phone | Unavailable | + + + Support + + + + + | Name | Relationship | Address | Phone | + + + + + | [place] | [place]CON | [place] | | | | | [address] | | + + + + + Care Team Providers + +------+ + | Care Grips Name | Role | Phone | + [...] | | | | | | [place] [address] | | | | | | [phone] | | | +--------+ + + + [...] | | | | | | [place] [address] | | | | | | [phone] | | | | | | | | +--------+ + + + + documented as of this encounter Visit Diagnoses Not on filedocumented in this encounter"
--- OUTSIDE RECORDS SUMMARY | ~2019-01-14 | XMS | Encounter Summary ---
Demographics + + + | Address | [address] | | | [place] [address] | + + + | Home Phone | | + + + | Preferred Language | Unknown | + + + | Marital Status | | + + + | Catholic Affiliation | Unknown | + + + | Race | Unknown | + + + | Ethnic Group | Unknown | + + + Author + + + | Author | [facility] | | | and [place] | + + + | Organization | [facility] | | | and [place] | + + + | Address | Unknown | + + + | Phone | Unavailable | + + + Support + + + + + | Name | Relationship | Address | Phone | + + + + + | [place] Will | ECON | [place] | | | | | [address] | | + + + + + Care Team Providers + +------+ + | Care Spray Technician Name | Role | Phone | + +------+ + | Venus Lainez MD | PCP | | + +------+ [...] | | | involving | [address] | [place] | | | | | [place] post[place] | [address] | [place] | | | | | coronary | [address] | [address] | | | | | artery of | Phone: | Phone: | | | | | [place] post[place] heart | [phone] | [phone] | | | | | without | Fax: | Fax: | | | | | angina | [phone] | [phone] | | | | | pectoris | | | + + + + + + + Encounter Details +--------+---------+ + + + | Date | Type | Department | Care Team | Description | +--------+---------+ + + + | 12/09/ | Office | [facility] | Randy Figueroa, | Coronary artery | | 2019 | Visit | MED CTR CARD[facility] | MD [address] [place] | disease involving | | | | REHABILITATION [address] | [place], | [place] post[place] coronary | | | | [address] [place] | [place] [address] | artery of [place] post[place] | | | | [place] [address] | [phone] | heart without angina | | | | [phone] | | pectoris (Primary | | | [...] + documented as of this encounter Progress Gael Ortega - 12/09/2018 1000 PDTFormatting of this note might be different from the orig [facility] CARDIAC REHABILITATION [address] [facility] [address] Cardiac Rehab Discharge Date: 12/09/2018 Patient Information Patient Name: Bob Will Date of : 1955 Age: 63 y.o. Referring Provider: Randy Figueroa MD Encounter Diagnoses Code Name Primary? I25.10 Coronary artery disease involving [place] post[place] coronary artery of [place] heart without angina pectoris Yes Z98.61 Post PTCA Cardiac Rehab Phase II Leon atment Plan Bob Will (Bob) is a 62 y.o. 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 He has recently increased his metoprolol dose and is on Entresto. He arrives in electric [employer] heelchair and has been inactive. Fall Ri sk Assessment Fall Risk: 2 or more falls in the past year or concern for a fall?: No If yes, reason for fall risk: Assistive device: I nterventions Designate Fall Risk by placing a star on exercise folder Assess and encourage fall risk reduction behaviors Manage and monitor hypotension if applicable Optimize home safety Refer to PT if applicable Abuse Assessment Do you feel safe in your current relationship or home? Yes Have you been hit/hurt or threatened by someone close to you? No Possible clinical concerns noted by clinician? No Action taken: No concerns Exercise LVEF: 35-40%% Risk stratification category: High Initial exercise/activity assessment: Date:08/03/18 Mode: Biostep Duration: 8 min X 2.48 ME Ts RPE: 3-4/10 30 Day exercise assessment: Date: 09/02/18 Mode: Biostep Duration: 20 mins X 2.53 METs RPE: 3-4/10 60 Day exercise assessment: Date: 10/07/18 Mode: Biostep Duration: 30 X 2.60 METs RPE: 3-4/1 0 Discharge exercise assessment: Date:12/09/18 Mode: Arm Ergometer Duration: 30 X 3.22 METs RP E: 4/10 Sessio n Prescription Modes: Recumbent elliptical, Ergometer Frequency: 3 X week Duration: 30 minutes Progression: Increase duration and/or intensity to maintain THR and/or RPE 3-4/10 THR: Rest +30 bpm Resistance training: Yes Precautions: High risk cardiac, hypotension Home E xercise Modes: Walk Frequency: 5 X week Duration: 30 minutes Progression: Increase duration and/or intensity of exercise to maintain at least 30 min of cardio exercise, 5 days per week and RPE 3-4/10 with warm up and cool down. Interventio ns and Education Initial orientation to cardiac rehab as listed below, Completed Date: - Equipment orientation -Warm up and cool down -Rating of Perceived Exertion- Modified Krzysztof Scale -Exercise Safety -Signs and Symptoms to report -Individualized exercise prescription Education: Benefits of exercise, Health consequences of inactivity, Exercise goal of 30 min utes aerobic most days of the week, Importance of hydration, Target heart rate, Determining pulse, effects of beta-blockers on heart rate and dehydrating effects of diuretics if applic able. Realistic goal setting. Plan at discharge. Comprehension assessment: Through conversation they appear to have good comprehension. Krahoracio: Living Well with Congestive Heart Failure book Date received: 04/22/18 Ta rget Goal(s) Aerobic- moderate intensity activity 30 to 60 minutes per day for at least 5 days per week Supplementing aerobic activity with an increase in daily lifestyle activities Resistance training at least two days per week COOP score: 25/40 Progression/Pro ne toward Goals Date: 04/22/18 Notes: He has been inactive. Date: 10/07/18 Notes: Pt has progressed nicely from ten minutes to 30 min with ease. Between living 45 minutes away and issues with his BP his attendance has been spotty at times. Took a long layoff before receiving a new referral down here to continue as they got the medicat ion situation under control. Also began walking with his around [employer] 3 days a week along with chasing his two grandkids he babysits every week. Nutr ition and Weight Assessment: Height: 5'10 " Admission Weight: 220# 30 Day Weight: 22 4 BMI: 31.6 60 Day Weight: 219# Discharge Weigh t: 221 Weight Goal: Lose 1-2 # per week Waist Circumference: D/C Circum ference: Diet Assessment Initial Rate Your Plate Score: 63 Discharge Rate Your Plate Sco re: 41 Special diet? dm Alcohol? Inte rvention and Education Points listed below- Date Completed: 08/03/18 -Goals of BMI, Waist circumference - Encourage weight reduction and/or maintenance through physical activity/ structured exe rcise, caloric intake, and/ or behavioral management, goal setting -Heart Healthy Dietary Education Date: 08/03/18 -Referral to Bryologist: Date: -DVD: Healthy Eating For Life Date: Target Goal(s) -Patient weight has maintained or improved toward BMI <25 -Waist circumference <35 inches for women < 40 inches for men -Diet low in saturated fats, simple carbs, high in fruits, vegetables and whole grains Progression/ Progress toward Goals Date: 04/22/18 Notes: His is very supportive in preparing low sodium, hear t healthy meals. Date: 10/07/18 Notes: Patient is doing well Hypertension History of hypertension: yes Treatment: On medication Initial Resting BP: 88/52 Peak Exercise BP: 98/50 30 Day Resting BP: 100/54 30 Day Exercise BP: 110/60 60 Day Resting BP: 92/58 60 Day Exercise BP: 96/62 Post Exercise BP: 92/60 Discharge BP: 90/54 Discharge Exercise BP: 102/50 D/C post exercise BP: 88/54 Inte rventions and Education Points listed below- Date Completed: 08/03/18 -Understanding blood pressure and goal blood pressure -BP medictions - Lifestyle modifications: weight control, increased physical activity, alcohol moderation, sodium reduction, emphasis on increased fruit, vegetable and low fat dairy consumption Individual cardiac risk factors reviewed Progress toward Goals: Date: Target Goal Blood pressure Goal: <130/80 Progression /Progress toward Goals Date: 04/22/18 Notes: He eats a low sodium diet and is willing to lose weight b y limiting portions. Date: 10/07/18 Notes: Pt is on a fluid and sodium restriction. His BP is still a bit of an i ssue as he came in 82/56 until he drank a 6.5 oz V8. His BP was still low as you can see but was within our standards. Date: 12/09/18 Notes: Pt slightly adjust medication schedule in an attempt to feel better d uring exercise about a month ago. Has found a good spot so that he can work hard without the tiring effects of BP dropping. Dyslipidemia History of Dyslipidemia: Yes Treatment: On medication Most recent lipid panel: CHOL 89 TRIG 131 HDL 21 LDL 42 Interven tions and Education Points listed below- Date Completed: 08/03/18 -Advocate for cholesterol medication if appropriate -Encourage lifestyle changes including regular lipid monitoring to achieve goals, include education on the importance of physical activity and weight management, dietary reduction o f saturated fats(<7% of total calories,) trans fats (<1% of total calories,) and cholesterol (<200mg/day.) How to raise HDL through exercise and diet. Target Goal Total 170 LDL 70 HDL >40 Triglycerides <130 Progression/P rogress toward Goals Date:08/03/18 Notes: Low HDLs is willing to exercise daily, eats low saturated fat diet. Niharika betes Mellitus History of diabetes: yes Treatment: med Last hemoglobin A1C: Value: 6 Date: 04/22/18 Interventions -Evaluate blood sugar pre- and post- exercise until stable. Date: Range: -Referral to Medical Laboratory Scientist Date: Education Points listed below- Date Completed: -Signs and symptoms of hypoglycemia -Impact of diabetes on cardiovascular risk, including understanding the importance of lifes tyle modifications, including physical activity, weight management, blood pressure control a nd lipid management Date completed: Diabetic diet instruction Date completed:08/03/18 Target Goals -Stable pre and post exercise glucoscans -HgbA1C: <7% Progression/ Progress toward Goals Date: 08/03/18 Notes:Glucoscans in goal range Tobacco Use Active tobacco user: No Type of tobacco: None Current amount: n/a Stage of change: Willing to set Quit Da te: n/a Barriers/Challenges: Inter vention and Education Points listed below- Date Completed: -Assist patient to set a quit date and provide encouragement -Educate on benefits of complete cessation, tobacco triggers, tips for success, relapse pre vention, no smoking >90 minutes before exercise Target Goal Complete smoking cessation Progression/P rogress toward Goals Date: Notes: Psychosocial Depression: occasionally Initial PHQ-9: 4 30 Day PHQ-9: 4 60 Day PHQ-9: 12 Discharge PHQ-9: 4 Support systems: and family Notes: 10/07/18 Patient filled out PHQ-9 with right next to him. Initial being a f our was done by himself. His main complaint is lack of energy/tired and subsequent issues ar e mostly feeling down on himself and lack of sleep. Also marked that with all these problems they are not difficult at all to deal with in every day life. Notes: 12/09/18 Pt filled out himself. His main complaint is moving slower than he would lik e but feeling restless and fidgety. Also has a minor complaint of little interest in some th ings and having less energy then he'd like. Intervention and Education Points listed below- Date Completed:08/03/18 -Assess presence or absence of depression using a validated screening tool on admission and every 30 days or prn if depression positive on admission or if set backs or changes in affe ct -Educate Stress management techniques, Deep breathing, progressive relaxation, encourage re gular execise -Educate and medical management -Notify PCP of depression symptoms or high PHQ-9 score. Date: Target Goal Mood improvement as indicated by broadened affect, increased interaction, reassesses with i mproved PHQ-9, Maximized coping skills, utilizing support system Progression/Progress to arizmendi Goals Date: 04/22/18 Notes: Retest PHQ, watch for signs of depression. Date: 10/07/18 Notes: Patient stated he's making progress and is able to do more on his own . Especially likes spending time with the grand kids. 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 He is enjoying w orking out and interacting with staff and patients. Most of his outside issues have calmed d own. Weather is getting better so his drive in is much better. Date: 12/09/18 Notes: Pt claims that he absolutely loves it here and has made great strides. Unforeseen circumstances makes the constant trip from [place] to not be a viable option a nymore. Has made huge strides and is on a good path. Has equip at home to keep using Patients stated Goals for Cardiac Rehab: To get into better shape and gain confidence after all that I've been through. Electronically signed by: Gael Woo, 12/09/2018 14:57 Patient Name: Bob Sims Suman/: 1955/ ly signed by Randy Figueroa MD at 12/12/2018 19:15 PDTdocumented in this encounter Plan of Treatment +--------+ [...] [address] | | | | | | [place], | | | | | | [place] [address] | | | | | | [phone] | | | | | | | | +--------+ + + + + documented as of this encounter Visit Diagnoses + + | Diagnosis | + + | Coronary artery disease involving la posta coronary artery of [place] post[place] heart without | | angina pectoris - Primary | + + | Post PTCA Postsurgical percutaneous transluminal coronary angioplasty status | + + documented in this encounter
--- OUTSIDE RECORDS SUMMARY | ~2019-01-14 | XMS | Encounter Summary ---
Demographics + + + | Address | [address] | | | [place] [address] | + + + | Home Phone | | + + + | Preferred Language | Unknown | + + + | Marital Status | | + + + | Gnosticist Affiliation | Unknown | + + + | Race | Unknown | + + + | Ethnic Group | Unknown | + + + Author + + + | Author | [facility] | | | and [place] | + + + | Organization | [facility] | | | and [place] | + + + | Address | Unknown | + + + | Phone | Unavailable | + + + Support + + + + + | Name | Relationship | Address | Phone | + + + + + | [place] Will | ECON | [place] | | | | | [address] | | + + + + + Care Team Providers + +------+ + | Care Science Manager Name | Role | Phone | [...] | | | involving | [address] [place] | | | | | [place] | [address] | [place] | | | | | coronary | [address] | [address] | | | | | artery of | Phone: | Phone: | | | | | [place] heart | [phone] | [phone] | | | | | without | Fax: | Fax: | | | | | angina | [phone] | [phone] | | | | | pectoris | | | + + + + + + + Encounter Details +--------+---------+ + + + | Date | Type | Department | Care Team | Description | +--------+---------+ + + + | 12/09/ | Office | [facility] | Randy Figueroa, | Coronary artery | | 2019 | Visit | MED CTR CARDIAC | MD [address] | disease involving | | | | REH[address]ILITATION [address] | [place], | [place] coronary | | | | [place] | [place] [address] | artery of [place] | | | | [place] [address] | [phone] | heart without angina | | | | [phone] | | pectoris (Primary | | | [...] note might be different from the orig [facility] CARDIAC REHABILITATION [address] [facility] [address] Cardiac Rehab Discharge Date: 12/09/2018 Patient Information Patient Name: Bob Will Date of : 1955 Age: 63 y.o. Referring Provider: Randy Figueroa MD Encounter Diagnoses Code Name Primary? I25.10 Coronary artery disease involving [place] coronary artery of [place] heart without angina pectoris Yes Z98.61 Post PTCA Cardiac Rehab Phase II Leon atment Plan Bob Will (Bob) is a 62 y.o. 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 He has recently increased his metoprolol dose and is on Entresto. He arrives in electric [employer] heelchair and has been inactive. Fall Ri [...] control. Also began walking with his around [employer] 3 days a week along with chasing [...] Healthy Dietary Education Date: 08/03/18 -Referral to Baggage Porter Head: Date: -DVD: Healthy Eating For Life Date: [...] exercise until stable. Date: Range: -Referral to Science Manager Date: Education Points listed below- Date Completed: [...] Unforeseen circumstances makes the constant trip from [place] to not be a viable option a [...] [address] | | | | | | [place], | | | | | | [place] [address] | | | | | | [phone] | | | | | | | | +--------+ + + + + documented as of this encounter Visit Diagnoses + + | Diagnosis | + + | Coronary artery disease involving [place] coronary artery of [place] heart without | | angina pectoris - Primary | + + | Post PTCA Postsurgical percutaneous transluminal coronary angioplasty status | + + documented in this encounter
--- OUTSIDE RECORDS SUMMARY | ~2019-01-14 | XMS | Clinical Summary ---
Demographics + + + | Address | [address] [place] [address] [address] | | | [place] [address] | + + + | Home Phone | | + + + | Preferred Language | Unknown | + + + | Marital Status | | + + + | Jehovah'S Witness Affiliation | Unknown | + + + | Race | Unknown | + + + | Ethnic Group | Unknown | + + + Author + + + | Author | Cassandra Hubs1 | + + + | Organization | [facility] | + + + | Address | Unknown | + + + | Phone | Unavailable | + + + Support + + +---------+ + | Name | Relationship | Address | Phone | + + +---------+ + | Venice Mckeon | ECON | Unknown | | + + +---------+ + Care Team Providers + +------+ + | Care Coroner Forensic Technician Name | Role | Phone | [...] | | | + + +--------+---------+------+------+-------+ | nitroGLYCERIN | Place 0.4 mg under | | | | | Activ | | (NITROSTAT) 0.4 MG | the tongue every 5 | | | | | e | | SL tablet | (five) minutes as | | | | | | | | needed for Chest | | | | | | | | pain. | | | | | | + + +--------+---------+------+------+-------+ | pantoprazole | Take 40 mg by mouth | | | | | Activ | | (PROTONIX) 40 MG | 2 (two) times daily. | | | | | e | | tablet | | | | | | | + + +--------+---------+------+------+-------+ | | Take 1 tablet by | | | | | Activ | | HYDROcodone-acetamin | mouth every 6 (six) | | | | | e | | ophen (NORCO) 10-325 | hours as needed for | | | | | | | MG per tablet | Pain. | | | | | | + + +--------+---------+------+------+-------+ | Multiple | Take 1 tablet by | | | | | Activ | | Vitamins-Minerals | mouth daily. | | | | | e | | (MULTIVITAMIN WITH | | | | | | | | MINERALS) tablet | | | | | | | + + +--------+---------+------+------+-------+ | aspirin 81 MG | Take 81 mg by mouth | | | | | Activ | | tablet | daily. | | | | | e | + + +--------+---------+------+------+-------+ | atorvastatin | Take 80 mg by mouth | | | | | Activ | | (LIPITOR) 80 MG | nightly. | | | | | e | | tablet | | | | | | | + + +--------+---------+------+------+-------+ | gabapentin | Take 300 mg by mouth | | | | | Activ | | (NEURONTIN) 300 MG | 3 (three) times | | | | | e | | capsule | daily. | | | | | | + + +--------+---------+------+------+-------+ | acetaminophen | Take 1,000 mg by | | | | | Activ | | (TYLENOL) 500 MG | mouth every 6 (six) | | | | | e | | tablet | hours as needed for | | | | | | | | Pain. | | | | | | + + +--------+---------+------+------+-------+ | traMADol (ULTRAM) | Take 50 mg by mouth | | | | | Activ | | 50 MG tablet | every 6 (six) hours | | | | | e | | | as needed for Pain. | | | | | | + + +--------+---------+------+------+-------+ | melatonin 3 MG | Take 3 mg by mouth | | | | | Activ | | TABS | nightly. | | | | | e | + + +--------+---------+------+------+-------+ | amiodarone | Take 1 tablet by | 30 | 0 | 09/0 | 09/0 | Activ | | (PACERONE) 400 MG | mouth daily. | tablet | | 6/20 | 6/20 | e | | tablet | | | | 18 | 19 | | + + +--------+---------+------+------+-------+ | | Take 1 tablet by | 60 | 0 | 09/0 | | Activ | | sacubitril-valsartan | mouth 2 (two) times | tablet | | 5/20 | | e | | (ENTRESTO) 24-26 MG | daily. | | | 18 | | | | per tablet | | | | | | | + + +--------+---------+------+------+-------+ | metoprolol | Take 1 tablet by | 30 | 0 | 09/0 | 09/0 | Activ | | (TOPROL-XL) 25 MG 24 | mouth daily. | tablet | | 6/20 | 6/20 | e | | hr tablet | | | | 18 | 19 | | + + +--------+---------+------+------+-------+ | | | | | 07/2 | | Activ | | HYDROcodone-acetamin | | | | 5/20 | | e | | ophen (NORCO) 5-325 | | | | 18 | | | | MG per tablet | | | | | | | + + +--------+---------+------+------+-------+ | furosemide (LASIX) | Take 1 tablet by | 30 | 11 | 09/0 | 09/0 | Activ | | 40 MG tablet | mouth daily. | tablet | | 6/20 | 6/20 | e | | | | | | 18 | 19 | | + + +--------+---------+------+------+-------+ Active Problems + + + | Problem | Noted Date | + + + | COPD (chronic obstructive pulmonary disease) (HCC) | 05/01/2018 | + + + | Hyperlipidemia | 05/01/2018 | + + + | CAD (coronary artery disease) | 05/01/2018 | + + + | Dyspnea | 05/01/2018 | + + + | Chronic systolic CHF (congestive heart failure) (HCC) | 05/01/2018 | + + + | Acute renal failure superimposed on stage 3 chronic kidney | 05/01/2018 | | disease (HCC) | | + + + Encounters +--------+ + + + + | Date | Type | Specialty | Care Team | Description | +--------+ + + + + | 11/03/ | Ancillary | | Amy Olivares MD | Congestive heart | | 2019 | Procedure | | | failure, unspecified | | | | | | HF chronicity, | | | | | | unspecified heart | | | | | | failure type (HCC) | +--------+ + + + + | 11/03/ | Ancillary | | Amy Olivares MD | Congestive heart | | 2019 | Orders | | | failure, unspecified | | | | | | HF chronicity, | | | | | | unspecified heart | | | | | | failure type (HCC) | +--------+ + + + + from Last 3 Months Family History + + +------+ + | Medical History | Relation | Name | Comments | + + +------+ + | Heart Disease | Father | | | + + +------+ + | Colon cancer | Mother | | | + + +------+ + + +------+ + + | Relation | Name | Status | Comments | + +------+ + + | Brother | | Alive | | + +------+ + + | Daughter | | Alive | | + +------+ + + | Father | | | AR | | | | (Age | | | | | 61) | | + +------+ + + | Mother | | Alive | | + +------+ + + | Son | | Alive | | + +------+ + + Social [...] + + + | Blood Pressure | 105/64 | 05/13/2018 1:32 PM PDT | + + + + | Pulse | 67 | 05/13/2018 11:13 AM PDT | + + + + | Temperature | 36.6 C (97.8 F) | 05/13/2018 11:13 AM PDT | + + + + | Respiratory Rate | 18 | 05/13/2018 11:13 AM PDT | + + + + | Oxygen Saturation | 94% | 05/13/2018 11:13 AM PDT | + + + + | Inhaled Oxygen | - | - | | Concentration | | | + + + + | Weight | 96.9 kg (213 lb 10 | 05/11/2018 5:16 AM PDT | | | oz) | | + + + + | Height | 175.3 cm (5' 9") | 05/01/2018 10:34 AM PDT | + + + + | Body Mass Index | 31.55 | 05/11/2018 5:16 AM PDT | + + + + Plan of Treatment Not on file Procedures + +--------+ + + + | [...] | | + +--------+ + + + from Last 3 Months Results ECHO outside interpretation standard (11/03/2018 3:41 [...] RON MCKEON Date of : 1955 | [facility] | | Performing Physician: Rocio | RADIOLOGY | | [facility] | | | | | | INDICATIONS [...] MV A Rohan: 0.86 m/s MV Dec [place]: 3.26 m/s2 | | | MV DecT: [...] | 21.47 mmHg TR Vmax: 2.31 m/s Mortgage Funder: DBS Authenticated | | | by: Rocio [facility] Report Date/Time: 11-04-2018 19:16:25 | | + + + + + | Procedure Note | + + | Sebastian, Rad Results In - 11/04/2018 7:20 PM PST Patient Name: Belkys MCKEON of | | : 5Accession: [id number] Physician: Rocio | | Alsamara INDICATIONS------ | | -----CHFCONCLUSIONS 1. This was [...] | 5.92 cmLVPWd: 1.01 cmLVOT Area: 3.17 bh4QHPE Diam: 2.01 cm%FS: 15.56 %EF(Teich): | | [...] mlLAESV Index (A-L): 42.88 ml/m2LAAs A2C: 24.92 mu3EALNK A-L | | A2C: 95.08 mlLALs A2C: 5.54 cmLAAs A4C: 19.37 vm8REGSP A-L A4C: 70.66 mlLALs | | A4C: 4.50 cmRAAs: 18.79 nb5NXRGR A-L: 67.38 mlRAESV MOD: 63.17 mlRALs: 4.44 | | cmTAPSE: 2.12 cmAV maxP.82 mmHgAV meanP.56 mmHgAV Vmax: 1.30 m/Emil | | Vmean: 0.88 m/Emil VTI: 25.33 cmAVA Vmax: 2.55 cm2AVA (VTI): 2.49 ff1GSPG (Vmax): | | 0.00 cm2/m2AVAI (VTI): 0.00 cm2/m2LVOT maxP.40 mmHgLVOT meanP.91 | | mmHgLVSI Dopp: 29.85 ml/m2LVSV Dopp: 63.29 mlLVOT Vmax: 1.04 m/sLVOT Vmean: 0.64 | | m/sLVOT VTI: 19.92 cmMV A Rohan: 0.86 m/sMV Dec [place]: 3.26 m/s2MV DecT: 218.32 | | msMV E Rohan: 0.71 m/sMV E/A Ratio: 0.82 MV PHT: 63.31 msMVA By PHT: 3.47 | | sj3Wvbdmr e': 0.04 m/sSeptal E/e': 15.51 Lateral e': 0.06 m/sLateral E/e': 10.91 | | RAP: 5 mmHgRVSP: 26.47 mmHgTR maxP.47 mmHgTR Vmax: 2.31 m/sSonographer: | | DBSAuthenticated by: Elinagwendolyn [facility]Report Date/Time: 11-04-2018 19:16:25IMPRESSION:1. | | This was [...] |LVOT VTI: 19.92 cm | |MV A Rohna: 0.86 m/s | |MV Dec [place]: 3.26 m/s2 | |MV DecT: 218.32 ms [...] |TR Vmax: 2.31 m/s | | | |Mortgage Funder: DBS | |Authenticated by: Rocio Pearl | [...] | + + + + + | [facility] | [address] | [place] [address] | | + + + + + from Last 3 Months Insurance + +--------+ +------+-------+ + | Payer | Benefi | Subscriber | Type | Phone | Address | | | t Plan | ID | | | | | | / | | | | | | | Group | | | | | + +--------+ +------+-------+ + | MEDICAID | [place] | [id number] | | | [address] | | | N | | | | [place] | | | [place] | | | | [address] | | | CAPACITOR TESTER | | | | | + +--------+ +------+-------+ + + +--------+ +--------+ + + | Guarantor Name | Accoun | Relation to | Date | Phone | Billing Address | | | t Type | Patient | of | | | | | | | | | | + +--------+ +--------+ + + | RON MCKEON | Person | Self [birth year] | Home: | [facility] [address] | | | al/Fam | | 1956 | [phone] [address] [place], | | | [place] | | | [phone] | [place] [address] | + +--------+ +--------+ + +
--- OUTSIDE RECORDS SUMMARY | ~2019-01-14 | XMS | Encounter Summary ---
Demographics + + + | Address | [address] | | | [place] [address] | + + + | Home Phone | | + + + | Preferred Language | Unknown | + + + | Marital Status | | + + + | Druze Affiliation | Unknown | + + + | Race | Unknown | + + + | Ethnic Group | Unknown | + + + Author + + + | Author | [facility] | | | and [place] | + + + | Organization | [facility] | | | and [place] | + + + | Address | Unknown | + + + | Phone | Unavailable | + + + Support + + + + + | Name | Relationship | Address | Phone | + + + + + | Venice Will | ECON | [place] | | | | | [address] | | + + + + + Care Team Providers + +------+ + | Care Ceo & Founder Name | Role | Phone | + [...] | | | involving | [address] [place] | | | | | [place] | [place], [place] | [place] | | | | | coronary | [address] | [address] | | | | | artery of | Phone: | Phone: | | | | | [place] heart | [phone] | [phone] | | | | | without | Fax: | Fax: | | | | | angina | [phone] | [phone] | | | | | pectoris | | | + + + + + + + Encounter Details +--------+---------+ + + + | Date | Type | Department | Care Team | Description | +--------+---------+ + + + | 10/21/ | Office | [facility] | Randy Figueroa, | Coronary artery | | 2019 | Visit | MED CTR CARDIAC | MD [address] | disease, angina | | | | REHABILITATION [address], | presence | | | | [address] [place] | [place] [address] | unspecified, | | | | [place] [address] | [phone] | unspecified vessel | | | | [phone] | | or lesion type, | | | | | | unspecified whether | | | | | | [place] or | | | | | | [...] documented as of this encounter Progress Notes Ana Thomas, YOUTH DIRECTOR - 10/21/2018 1000 PSTFormatting of this note might be different fro m the original. [facility] CARDIAC REHABILITATION [address] [facility] [address] Cardiac Rehab Date: 10/21/2018 Patient Information Patient Name: Bob Will Date of : 1955 Age: 62 y.o. Encounter Diagnoses Code Name Primary? I25.10 Coronary artery disease, angina presence unspecified, unspecified vessel or lesi on type, unspecified whether [place] or transplanted heart Yes Number of Visits [...] which is much higher than Ashok's norm. home visitor home base head start was placed. No significant change noted from [...] had came directly to rehab from the [place] [facility] where changes in medication was made. Ashok states they stopped his Entresto and increased Lasix to two tabs daily. also notified to [facility] Ashok. Any abnormal vital signs or rhythm strips will be reported in progress note. Electronically signed by: Ana Thomas RRT, 10/21/2018 14:30 Patient Name: Bob Will/: 1955/ ly signed by Ana Thomas RRT at 10/21/2018 14:38 PSTdocumented in this encounter Plan of Treatment [...] | | 2019 | Visit | | [facility] [address] | | | | | | [place], | | | | | | [place] [address] | | | | | | [phone] | | | | | | | | +--------+ + + + + documented as of this encounter Visit Diagnoses + + | Diagnosis | + + | Coronary artery disease, angina presence unspecified, unspecified vessel or lesion | | type, unspecified whether [place] or transplanted heart - Primary | + + documented in this encounter"
--- OUTSIDE RECORDS SUMMARY | ~2019-01-14 | XMS | Encounter Summary ---
Demographics + + + | Address | [address] | | | [place] [address] | + + + | Home Phone | | + + + | Preferred Language | Unknown | + + + | Marital Status | | + + + | Presybeterian Affiliation | Unknown | + + + | Race | Unknown | + + + | Ethnic Group | Unknown | + + + Author + + + | Author | [facility] | | | and [place] | + + + | Organization | [facility] | | | and [place] | + + + | Address | Unknown | + + + | Phone | Unavailable | + + + Support + + + + + | Name | Relationship | Address | Phone | + + + + + | Venice Will | ECON | [place] | | | | | [address] | | + + + + + Care Team Providers + +------+ + | Care Corrections Counselor Name | Role | Phone | [...] Monitor | CARDIOLOGY [address] | [address] [place] | Interrogation | | | | [place], | [place], | (Primary Dx); SEN[place] TESTER[place] | | | | [place] [address] | [place] [address] | (AICD) [employer] | | | | [phone] | [phone] | 10/16/17 [facility] [place]; | | | | | [...] W | | | | | | [place], | | | | | | [place] [address] | | | | | | [phone] | | | | | | | [...] | e | 23:59 PDT | Interrogation SENIOR QA TESTER-D | procedure are in the | | REMOTE | | | (AICKatie) [employer] | results section. | | | | | 10/16/17 EULOGIO Darby | | | | | | Ischemic | | | | | | cardiomyopathy | | + +--------+ + + + documented in this encounter Results Device Interrogation - Remote (12/05/2018 23:59 PDT) + + + | Narrative | Performed At | + + + | Randy | DONNA | | MD [place] 11/05/2018 10:33Date of Remote Interrogation: | | | 10/19/18 Refer to [employer]aceart documentation and remote PDF scanned into | | | [facility] for remote interrogation results. Data collected [...] | cardiac defibrillator | + + | SENIOR QA TESTER-D ASHLEE) [employer] 10/16/17 EULOGIO Darby | + + | Ischemic cardiomyopathy Other specified forms of chronic ischemic heart disease | + + documented in this encounter"
--- OUTSIDE RECORDS SUMMARY | ~2019-01-14 | XMS | Encounter Summary ---
Demographics + + + | Address | [address] | | | [place] [address] | + + + | Home Phone | | + + + | Preferred Language | Unknown | + + + | Marital Status | | + + + | Confucianism Affiliation | Unknown | + + + | Race | Unknown | + + + | Ethnic Group | Unknown | + + + Author + + + | Author | [facility] | | | and [place] | + + + | Organization | [facility] | | | and [place] | + + + | Address | Unknown | + + + | Phone | Unavailable | + + + Support + + + + + | Name | Relationship | Address | Phone | + + + + + | Venice Will | ECON | [place] | | | | | [address] | | + + + + + Care Team Providers + +------+ + | Care Safety Investigator/Cause Analyst Name | Role | Phone | [...] NEPHROLOGY [address] | MD [address] | | | | | [address] | [address] [place] | | | | | [place], [place] | [place] [address] | | | | | [address] | [phone] | | | | | [phone] | | | +--------+ + + + [...] [place], | | | | | | [place] [address] | | | | | | [phone] | | | | | | | [...]
--- OUTSIDE RECORDS SUMMARY | ~2019-01-14 | XMS | Encounter Summary ---
Demographics + + + | Address | [address] | | | [place] [address] | + + + | Home Phone | | + + + | Preferred Language | Unknown | + + + | Marital Status | | + + + | Caodaism Affiliation | Unknown | + + + | Race | Unknown | + + + | Ethnic Group | Unknown | + + + Author + + + | Author | [facility] | | | and [place] | + + + | Organization | [facility] | | | and [place] | + + + | Address | Unknown | + + + | Phone | Unavailable | + + + Support + + + + + | Name | Relationship | Address | Phone | + + + + + | Venice Will | ECON | [place] | | | | | [address] | | + + + + + Care Team Providers + +------+ + | Care Sawmill Relief Worker Name | Role | Phone | + [...] | | | involving | [address] [place] | | | | | knik | [place] | [place] | | | | | coronary | [address] | [address] | | | | | artery of | Phone: | Phone: | | | | | knik heart | [phone] | [phone] | | | | | without | Fax: | Fax: | | | | | angina | [phone] | [phone] | | | | | pectoris | | | + + + + + + + Encounter Details +--------+---------+ + + + | Date | Type | Department | Care Team | Description | +--------+---------+ + + + | 11/09/ | Office | [facility] | Randy Figueroa, | Coronary artery | | 2019 | Visit | MED CTR CARDIAC | MD [address] | disease involving | | | | REHABILITATION [address] | [address] [place], | knik coronary | | | | [address] | [place] [address] | artery of knik | | | | [place] [address] | [phone] | heart without angina | | | | [phone] | | pectoris (Primary | | | [...] of this encounter Progress Jonah Coker-Cheri Kendrick, MORTGAGE ADVISOR - 11/09/2018 1000 PSTFormatting of this note might be diff erent from the original. [facility] CARDIAC REHABILITATION [address] [facility] [address] Cardiac Rehab Date: 11/09/2018 Patient Information Patient Name: Bob Will Date of : 1955 Age: 63 y.o. Encounter Diagnoses Code Name Primary? I25.10 Coronary artery disease involving knik coronary artery of knik heart without angina pectoris Yes Number of [...] | | | | | | [place] [address] | | | | | | [phone] | | | | | | | | +--------+ + + + + documented as of this encounter Visit Diagnoses + + | Diagnosis | + + | Coronary artery disease involving knik coronary artery of knik heart without | | angina pectoris - Primary | + + documented in this encounter"
--- OUTSIDE RECORDS SUMMARY | ~2019-01-14 | XMS | Encounter Summary ---
Demographics + + + | Address | [address] [place] [address] [address] | | | [place] [address] | + + + | Home Phone | | + + + | Preferred Language | Unknown | + + + | Marital Status | | + + + | Mosque Affiliation | Unknown | + + + | Race | Unknown | + + + | Ethnic Group | Unknown | + + + Author + + + | Author | [facility] | + + + | Organization | [facility] | + + + | Address | Unknown | + + + | Phone | Unavailable | + + + Support + + +---------+ + | Name | Relationship | Address | Phone | + + +---------+ + | Venice Mckeon | ECON | Unknown | | + + +---------+ + Care Team Providers + +------+ + | Care Client Technologies Analyst Name | Role | Phone | [...] HF chronicity, | | | | | [address] | unspecified heart | | | | [...] RON MCKEON Date of : 1955 | [facility] | | Performing Physician: Rocio | RADIOLOGY | | [facility] | | | | [...] MV A Rohan: 0.86 m/s MV Dec [place]: 3.26 m/s2 | | | MV DecT: [...] 21.47 mmHg TR Vmax: 2.31 m/s Supervisor Histology: ANJANA Authenticated | | | by: [facility]io [facility] Report Date/Time: 11-04-2018 19:16:25 | | + + + + + | Procedure Note | + + | Sebastian, Rad Results In - 11/04/2018 7:20 PM PST Patient Name: Belkys MCKEON of | | : 5Accession: [id number] Physician: Rocio | | [facility] INDICATIONS------ | | -----CHFCONCLUSIONS 1. [...] | 5.92 cmLVPWd: 1.01 cmLVOT Area: 3.17 an4DVCR Diam: 2.01 cm%FS: 15.56 %EF(Teich): | | [...] mlLAESV Index (A-L): 42.88 ml/m2LAAs A2C: 24.92 hb9LQEDT A-L | | A2C: 95.08 mlLALs A2C: 5.54 cmLAAs A4C: 19.37 xt6HJDUL A-L A4C: 70.66 mlLALs | | A4C: 4.50 cmRAAs: 18.79 uk3LUVSK A-L: 67.38 mlRAESV MOD: 63.17 mlRALs: 4.44 | | cmTAPSE: 2.12 cmAV maxP.82 mmHgAV meanP.56 mmHgAV Vmax: 1.30 m/Emil | | Vmean: 0.88 m/Emil VTI: 25.33 cmAVA Vmax: 2.55 cm2AVA (VTI): 2.49 lp6SEME (Vmax): | | 0.00 cm2/m2AVAI (VTI): 0.00 cm2/m2LVOT maxP.40 mmHgLVOT meanP.91 | | mmHgLVSI Dopp: 29.85 ml/m2LVSV Dopp: 63.29 mlLVOT Vmax: 1.04 m/sLVOT Vmean: 0.64 | | m/sLVOT VTI: 19.92 cmMV A Rohan: 0.86 m/sMV Dec [place]: 3.26 m/s2MV DecT: 218.32 | | msMV E Rohan: 0.71 m/sMV E/A Ratio: 0.82 MV PHT: 63.31 msMVA By PHT: 3.47 | | lh0Vhmgyu e': 0.04 m/sSeptal E/e': 15.51 Lateral e': 0.06 m/sLateral E/e': 10.91 | | RAP: 5 mmHgRVSP: 26.47 mmHgTR maxP.47 mmHgTR Vmax: 2.31 m/sSonographer: | | DBSAuthenticated by: Mershed [facility] CenterReport Date/Time: 11-04-2018 19:16:25IMPRESSION:1. | [...] A Rohan: 0.86 m/s | |MV Dec [place]: 3.26 m/s2 | |MV DecT: 218.32 ms [...] Vmax: 2.31 m/s | | | |Supervisor Histology: DBS | |Authenticated by: Rocio Pearl | [...] | + + + + + | [facility] | [address] | [place] [address] | | + + + + + in this encounter Visit Diagnoses + + | Diagnosis | + + | Congestive heart failure, unspecified HF chronicity, unspecified heart failure type | | (HCC) | + +"
--- OUTSIDE RECORDS SUMMARY | ~2019-01-14 | XMS | Encounter Summary ---
Demographics + + + | Address | [address] | | | [place] [address] | + + + | Home Phone [...] | [place] | | | | | [address] | | + + + + + Care Team Providers + +------+ + | Care Staff Midwife/Apprenticeship Director Name | Role | Phone | [...] | | | involving | [address] | [address] [place] | | | | | [place] | [place] | [place] | | | | | coronary | [address] | [address] | | | | | artery of | Phone: | Phone: | | | | | [place] heart | [phone] | [phone] | | | | | without | Fax: | Fax: | | | | | angina | [phone] | [phone] | | | | | pectoris | | | + + + + + + + Encounter Details +--------+---------+ + + + | Date | Type | Department | Care Team | Description | +--------+---------+ + + + | 10/28/ | Office | [facility] | Randy Figueroa, | Coronary artery | | 2019 | Visit | MED CTR CARDIAC | MD [address] | disease, angina | | | | REHABILITATION [address] | [place], | presence | | | | [address] [place] | [place] [address] | unspecified, | | | | [place] [address] | [phone] | unspecified vessel | | | | [phone] | | or lesion type, | | | | | | unspecified whether | | | | | | [place] or | | | | | | [...] Esther Fields RN - 10/28/2018 1000 PST [facility] CARDIAC REHABILITATION [address] [facility] [address] Cardiac Rehab Date: 10/28/2018 Patient Information Patient Name: Bob Will Date of : 1955 Age: 62 y.o. Encounter Diagnoses Code Name Primary? I25.10 Coronary artery disease, angina presence unspecified, unspecified vessel or lesi on type, unspecified whether [place] or transplanted heart Yes Z98.61 Post PTCA [...] W | | | | | | [place], | | | | | | [place] [address] | | | | | | [phone] | | | | | | | | +--------+ + + + + documented as of this encounter Visit Diagnoses + + | Diagnosis | + + | Coronary artery disease, angina presence unspecified, unspecified vessel or lesion | | type, unspecified whether [place] or transplanted heart - Primary | + + | Post PTCA Postsurgical percutaneous transluminal coronary angioplasty status | + + documented in this encounter"
--- OUTSIDE RECORDS SUMMARY | ~2019-01-14 | XMS | Encounter Summary ---
Demographics + + + | Address | [address] | | | [place] [address] | + + + | Home Phone [...] | [place] | | | | | [address] | | + + + + + Care Team Providers + +------+ + | Care Pusher Runner Name | Role | Phone | + [...] | Services | Rehabilitatio | Coronary | Janle | | | | Required | n | artery | ADARSH Jacobs | Rehabilitatio | | | | | disease | [address] | [address] | | | | | involving | [address] | [place] | | | | | mi'kmaq | [place], [place] | [place] | | | | | coronary | [address] | [address] | | | | | artery of | Phone: | Phone: | | | | | mi'kmaq heart | [phone] | [phone] | | | | | without | Fax: | Fax: | | | | | angina | [phone] | [phone] | | | | | pectoris | | | + + + + + + + Encounter Details +--------+---------+ + + + | Date | Type | Department | Care Team | Description | +--------+---------+ + + + | 11/18/ | Office | [facility] | Randy Figueroa, | Coronary artery | | 2019 | Visit | MED CTR CARDIAC | [address] | disease involving | | | | REHABILITATION [address] | [place], | mi'kmaq coronary | | | | [address] [place] | [place] [address] | artery of mi'kmaq | | | | [place] [address] | [phone] | heart without angina | | | | [phone] | | pectoris (Primary | | | [...] might be different from the orig inayocasta. [facility] [address] [facility] [address] Cardiac Rehab Date: 11/18/2018 Patient Information Patient Name: Bob Will Date of : 1955 Age: 63 y.o. Encounter Diagnoses Code Name Primary? I25.10 Coronary artery disease involving mi'kmaq coronary artery of mi'kmaq heart without angina pectoris Yes Z98.61 Post [...] [place], | | | | | | [place] [address] | | | | | | [phone] | | | | | | | | +--------+ + + + + documented as of this encounter Visit Diagnoses + + | Diagnosis | + + | Coronary artery disease involving mi'kmaq coronary artery of mi'kmaq heart without | | angina pectoris - Primary | + + | Post PTCA Postsurgical percutaneous transluminal coronary angioplasty status | + + documented in this encounter"
--- OUTSIDE RECORDS SUMMARY | ~2019-01-14 | XMS | Encounter Summary ---
Demographics + + + | Address | [address] | | | [place] [address] | + + + | Home Phone [...] | [place] | | | | | [address] | | + + + + + Care Team Providers + +------+ + | Care Court Recording Monitor Name | Role | Phone | + [...] | | involving | [address] | [place] | | | | | nikolai | [place]RE | [place] | | | | | coronary | [address] | [address] | | | | | artery of | Phone: | Phone: | | | | | nikolai heart | [phone] | [phone] | | | | | without | Fax: | Fax: | | | | | angina | [phone] | [phone] | | | | | pectoris | | | + + + + + + + Encounter Details +--------+---------+ + + + | Date | Type | Department | Care Team | Description | +--------+---------+ + + + | 11/23/ | Office | [facility] | Rahullindacathy Lindaangusleo, | Acute on chronic | | 2019 | Visit | MED CTR CARDIAC | MD [address] | systolic congestive | | | | REHABILITATION [address] | [place], | heart failure (HCC) | | | | [address] [place] | [place] [address] | (Primary Dx) | | | | [place] [address] | [phone] | | | | | [phone] | | | +--------+---------+ + + + [...] of this encounter Progress Jonah Coker-Cheri Kendrick, RAZOR SHARPENER - 11/23/2018 1000 PDTFormatting of this note might be diff erent from the original. [facility] [address] [facility] [address] Cardiac Rehab Date: 11/23/2018 Patient Information Patient [...] in progress note. Electronically signed by: Cheri Havrey RRT, 11/23/2018 12:12 Patient Name: Bob Will/: [...] | | | | | | [place] [address] | | | | | | [phone] | | | | | | | | +--------+ + + + + documented as of this encounter Visit Diagnoses + + | Diagnosis | + + | Acute on chronic systolic congestive heart failure (HCC) - Primary Acute on chronic | | systolic heart failure | + + documented in this encounter"
--- OUTSIDE RECORDS SUMMARY | ~2019-01-14 | XMS | Clinical Summary ---
Demographics + + + | Address | [address] [place] [address] [address] | | | [place] [address] | + + + | Home Phone | | + + + | Preferred Language | Unknown | + + + | Marital Status | | + + + | Rastafari Affiliation | NRP | + + + [...] | | | | | [place] [address] | | + + + + + Care Team Providers + +------+ + | Care Environmental Research Scientist Name | Role | Phone | + +------+ + | Chato Matson MD | PP | | + +------+ + Source Comments 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 | | -secretions improving, cough strong -s/p [...] stayExtubated 03/22, started on | | NC J9Pxkns infusion begun 03/22 for daily goal -1 [...] during cath | | lab procedure at [facility]. Was shocked 17 times | | [...] | | | INC | | | [id number] | | Tejal Pettit MD | | | | | | X / | | | | | | | | /[address] | | | | | | | | [address] | + +------+--------+ +--------+--------+--------+ Results Not on [...] | BLUE | xxxxxxxxx | PPO | +253- | [address] [address] [place] | | | CROSS | | | [address] | [place] [address] | | | [place] | | | | | | | L | | | | | + +--------+ +--------+ + + | MEDICAID [place] | OHP | xxxxxxxx | Medica | +336- | [address] [address] | | | PLUS | | id | [phone] | [place] [address] | | | OPEN | | | [...] | Self | [birth year] | Home: | [address] | | | al/Negro | | 1956 | [phone] | [address] [place] | | | taiwo | | | [address] | [address] | + +--------+ +--------+ + +
--- OUTSIDE RECORDS SUMMARY | ~2019-01-14 | XMS | Encounter Summary ---
Demographics + + + | Address | [address] | | | [place] [address] | + + + | Home Phone | | + + + | Preferred Language | Unknown | + + + | Marital Status | | + + + | Worship Affiliation | Unknown | + + + | Race | Unknown | + + + | Ethnic Group | Unknown | + + + Author + + + | Author | [facility] | | | and [place] | + + + | Organization | [facility] | | | and [place] | + + + | Address | Unknown | + + + | Phone | Unavailable | + + + Support + + + + + | Name | Relationship | Address | Phone | + + + + + | Venice Will | ECON | [place] | | | | | [address] | | + + + + + Care Team Providers + +------+ + | Care Call Center Associate Name | Role | Phone | [...] | | | involving | [address] | [address] [place] | | | | | [place] | [place], [place] | [place] | | | | | coronary | [address] | [address] | | | | | artery of | Phone: | Phone: | | | | | eastern shosh[place] heart | [phone] | [phone] | | | | | without | Fax: | Fax: | | | | | angina | [phone] | [phone] | | | | | pectoris | | | + + + + + + + Encounter Details +--------+---------+ + + + | Date | Type | Department | Care Team | Description | +--------+---------+ + + + | 11/18/ | Office | [facility] | Randy Figueroa, | Coronary artery | | 2019 | Visit | MED CTR CARDIAC | [address] | disease involving | | | | REHABILITATION [address] | [place], | [place] coronary | | | | [address] [place] | [place] [address] | artery of [place]one | | | | [place] [address] | [phone] | heart without angina | | | | [phone] | | pectoris (Primary | | | [...] inayocasta. [facility] [address] [facility] [address] Cardiac Rehab Date: 11/18/2018 Patient Information Patient Name: Bob Will Date of : 1955 Age: 63 y.o. Encounter Diagnoses Code Name Primary? I25.10 Coronary artery disease involving eastern [place] coronary artery of eastern [place] heart without angina pectoris Yes Z98.61 Post [...] [place], | | | | | | [place] [address] | | | | | | [phone] | | | | | | | | +--------+ + + + + documented as of this encounter Visit Diagnoses + + | Diagnosis | + + | Coronary artery disease involving eastern shoshone coronary artery of eastern shoshone heart without | | angina pectoris - Primary | + + | Post PTCA Postsurgical percutaneous transluminal coronary angioplasty status | + + documented in this encounter"
--- OUTSIDE RECORDS SUMMARY | ~2019-01-14 | XMS | Encounter Summary ---
Demographics + + + | Address | [address] | | | [place] [address] | + + + | Home Phone [...] [place] | | | | | [address] | | + + + + + Care Team Providers + +------+ + | Care Copy Messenger Name | Role | Phone | + +------+ + | Young Haque DO | PCP | | + +------+ + Encounter Details +--------+ + + + + | Date | Type | Department | Care Team | Description | +--------+ + + + + | 03/19/ | Abstract | [facility] [place] | Jenny, | | | 2018 | | CARDIOLOGY [address] | Hansa LAWN AND GARDEN TECHNICIAN [address] | | | | | [place], | [place], | | | | | [place] [address] | [place] [address] | | | | | [phone] | [phone] | | | | | | | [...] | | | | | | [place] [address] | | | | | | [phone] | | | | | | | [...]
--- OUTSIDE RECORDS SUMMARY | ~2019-01-14 | XMS | Encounter Summary ---
Demographics + + + | Address | [address] | | | [place] [address] | + + + | Home Phone [...] | [place] | | | | | [address] | | + + + + + Care Team Providers + +------+ + | Care Cupola Operator Insulation Name | Role | Phone | + [...] | | | involving | [address] | [place] | | | | | marshall | [place]CGUIRE | [place] | | | | | coronary | [address] | [address] | | | | | artery of | Phone: | Phone: | | | | | marshall heart | [phone] | [phone] | | | | | without | Fax: | Fax: | | | | | angina | [phone] | [phone] | | | | | pectoris | | | + + + + + + + Encounter Details +--------+---------+ + + + | Date | Type | Department | Care Team | Description | +--------+---------+ + + + | 12/02/ | Office | [facility] | Randy Figueroa, | Coronary artery | | 2019 | Visit | MED CTR CARDIAC | MD [address] | disease involving | | | | REHABILITATION [address] | [place], | marsh[place] coronary | | | | [address] [place] | [place] [address] | artery of marshall | | | | [place] [address] | [phone] | heart without angina | | | | [phone] | | pectoris (Primary | | | [...] note might be different from the orig [facility] CARDIAC REHABILITATION [address] [facility] [address] Cardiac Rehab Date: 12/02/2018 Patient Information Patient Name: Bob Will Date of : 1955 Age: 63 y.o. Encounter Diagnoses Code Name Primary? I25.10 Coronary artery disease involving marshall coronary artery of marshall heart without angina pectoris Yes Z98.61 Post [...] W | | | | | | [place], | | | | | | [place] [address] | | | | | | [phone] | | | | | | | | +--------+ + + + + documented as of this encounter Visit Diagnoses + + | Diagnosis | + + | Coronary artery disease involving marshall coronary artery of marshall heart without | | angina pectoris - Primary | + + | Post PTCA Postsurgical percutaneous transluminal coronary angioplasty status | + + documented in this encounter"
--- OUTSIDE RECORDS SUMMARY | ~2019-01-14 | XMS | Clinical Summary ---
Demographics + + + | Address | [address] [place] [address] [address] | | | [place] [address] | + + + | Home Phone | | + + + | Preferred Language | Unknown | + + + | Marital Status | | + + + | Pentecostalism Affiliation | Unknown | + + + | Race | Unknown | + + + | Ethnic Group | Unknown | + + + Author + + + | Author | [facility] | + + + | Organization | [facility] | + + + | Address | Unknown | + + + | Phone | Unavailable | + + + Support + + +---------+ + | Name | Relationship | Address | Phone | + + +---------+ + | [place] Mckeon | ECON | Unknown | | + + +---------+ + Care Team Providers + +------+ + | Care Physician Surgeon Name | Role | Phone | + [...] + + | Father | | | [place] | | | | (Age | | [...] MCKEON Date of : 1955 | [facility] | | Performing Physician: Rocio | RADIOLOGY | | [facility] | | | | | | [...] MV A Rohan: 0.86 m/s MV Dec George: 3.26 m/s2 | | | MV DecT: [...] | 21.47 mmHg TR Vmax: 2.31 m/s Filteration Operator: DBS Authenticated | | | by: Rocio Barfieldbessemer city Report Date/Time: 11-04-2018 19:16:25 | | + + + + + | Procedure Note | + + | Sebastian, Rad Results In - 11/04/2018 7:20 PM PST Patient Name: Belkys MCKEON of | | : 5Accession: [id number] Physician: Rocio | | Alsamara INDICATIONS------ | [...] | 5.92 cmLVPWd: 1.01 cmLVOT Area: 3.17 [id number] Diam: 2.01 cm%FS: 15.56 %EF(Teich): | | [...] mlLAESV Index (A-L): 42.88 ml/m2LAAs A2C: 24.92 lm7ZMVAC A-L | | A2C: 95.08 mlLALs A2C: 5.54 cmLAAs A4C: 19.37 fp9EJBIL A-L A4C: 70.66 mlLALs | | A4C: 4.50 cmRAAs: 18.79 mp8HNQZD A-L: 67.38 mlRAESV MOD: 63.17 mlRALs: 4.44 | | cmTAPSE: 2.12 cmAV maxP.82 mmHgAV meanP.56 mmHgAV Vmax: 1.30 m/Emil | | Vmean: 0.88 m/Emil VTI: 25.33 cmAVA Vmax: 2.55 cm2AVA (VTI): 2.49 ud0ZXKF (Vmax): | | 0.00 cm2/m2AVAI (VTI): 0.00 cm2/m2LVOT maxP.40 mmHgLVOT meanP.91 | | mmHgLVSI Dopp: 29.85 ml/m2LVSV Dopp: 63.29 mlLVOT Vmax: 1.04 m/sLVOT Vmean: 0.64 | | m/sLVOT VTI: 19.92 cmMV A Rohan: 0.86 m/sMV Dec George: 3.26 m/s2MV DecT: 218.32 | | msMV E Rohan: 0.71 m/sMV E/A Ratio: 0.82 MV PHT: 63.31 msMVA By PHT: 3.47 | | bx8Wckfbg e': 0.04 m/sSeptal E/e': 15.51 Lateral e': 0.06 m/sLateral E/e': 10.91 | | RAP: 5 mmHgRVSP: 26.47 mmHgTR maxP.47 mmHgTR Vmax: 2.31 m/sSonographer: | | DBSAuthenticated by: Elinagwendolyn [facility] Date/Time: 11-04-2018 19:16:25IMPRESSION:1. | | This [...] A Rohan: 0.86 m/s | |MV Dec George: 3.26 m/s2 | |MV DecT: 218.32 ms [...] |TR Vmax: 2.31 m/s | | | |Filteration Operator: DBS | |Authenticated by: Rocio Pearl [...] | [address] | [place] [address] | | + + + + + [...] +------+-------+ + | MEDICAID | [place] | [id number] | | | [address] | | | N | | | | [place] | | | [place] | | | | [address] | | | AUTOMATIC PUNCH PRESS OPERATOR | | | | | + [...] | [birth year] | Home: | [address] | | | al/Fam | | 1956 | [phone] | [address] [place], | | | [place] | | | [address] | [place] [address] | + +--------+ +--------+ + +
--- OUTSIDE RECORDS SUMMARY | ~2019-01-14 | XMS | Encounter Summary ---
Demographics + + + | Address | [address] | | | [place] [address] | + + + | Home Phone [...] [place] | | | | | [address] | | + + + + + Care Team Providers + +------+ + | Care Medical Supply Technician Name | Role | Phone | [...] | 12/06/ | Refill | [facility] | Jenny, | Medication Refill | | 2018 | | CARDIOLOGY [address] | ADARSH Santo [address] | | | | | [place], | [place], | | | | | [place] [address] | [place] [address] | | | | | [phone] | [phone] | | | | | | | [...] | | | | | | [place] [address] | | | | | | [phone] | | | | | | | | +--------+ + + + + documented as of this encounter Visit Diagnoses Not on filedocumented in this encounter"
--- OUTSIDE RECORDS SUMMARY | ~2019-01-14 | XMS | Encounter Summary ---
Demographics + + + | Address | [address] | | | [place] [address] | + + + | Home Phone [...] [place] | | | | | [address] | | + + + + + Care Team Providers + +------+ + | Care Precision Optics Technician Name | Role | Phone | [...] Monitor | CARDIOLOGY [address] | [address] | Interrogation | | | | [place], | [place], | (Primary Dx); SCALEMAKER-D | | | | [place] [address] | [place] [address] | (AICD) [employer] | | | | [phone] | [phone] | 10/16/17 [facility] [place]; | | | | [...] W | | | | | | [place], | | | | | | [place] [address] | | | | | | [phone] | | | | | | | [...] | e | 23:59 PDT | Interrogation SCALEMAKER-D | procedure are in the | | [...] remote PDF scanned into | | | [facility] for remote interrogation results. Data collected by RONNY Butt | | | ALFONSO HCAPMAN Presenting rhythm: atrial sensed ventricular paced with [...] | cardiac defibrillator | + + | SCALEMAKER-D ASHLEE) [employer]tronic 10/16/17 EULOGIO Darby | + + | Ischemic cardiomyopathy Other specified forms of chronic ischemic heart disease | + + documented in this encounter"
--- OUTSIDE RECORDS SUMMARY | ~2019-01-14 | XMS | Encounter Summary ---
Demographics + + + | Address | [address] | | | [place] [address] | + + + | Home Phone [...] | [place] | | | | | [address] | | + + + + + Care Team Providers + +------+ + | Care Sander Operator Name | Role | Phone | [...] | | | involving | [address] | [place] | | | | | [place] | [place] | [place] | | | | | coronary | [address] | [address] | | | | | artery of | Phone: | Phone: | | | | | [place] heart | [phone] | [phone] | | | | | without | Fax: | Fax: | | | | | angina | [phone] | [phone] | | | | | pectoris | | | + + + + + + + Encounter Details +--------+---------+ + + + | Date | Type | Department | Care Team | Description | +--------+---------+ + + + | 12/02/ | Office | [facility] | Randy Figueroa, | Coronary artery | | 2019 | Visit | MED CTR CARDIAC | MD [address] | disease involving | | | | REHABILITATION [address] | [place], | [place] coronary | | | | [address] [place] [address] [place] | [place] [address] | artery of [place] | | | | [place] [address] | [phone] | heart without angina | | | | [phone] | | pectoris (Primary | | | [...] note might be different from the orig [facility] CARDIAC REHABILITATION [address] [facility] [address] Cardiac Rehab Date: 12/02/2018 Patient Information Patient Name: Bob Will Date of : 1955 Age: 63 y.o. Encounter Diagnoses Code Name Primary? I25.10 Coronary artery disease involving [place] coronary artery of [place] heart without angina pectoris Yes Z98.61 Post [...] | | | | | | [place], | | | | | | [place] [address] | | | | | | [phone] | | | | | | | | +--------+ + + + + documented as of this encounter Visit Diagnoses + + | Diagnosis | + + | Coronary artery disease involving [place] coronary artery of [place] heart without | | angina pectoris - Primary | + + | Post PTCA Postsurgical percutaneous transluminal coronary angioplasty status | + + documented in this encounter"
--- OUTSIDE RECORDS SUMMARY | ~2019-01-14 | XMS | Clinical Summary ---
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 | | -secretions improving, cough strong -s/p [...] stayExtubated 03/22, started on | | NC X5Oiqtq infusion begun 03/22 for daily goal -1 [...] during cath | | lab procedure at [facility]. Was shocked 17 times | | Targeted [...] | | | INC | | | [id number] | | Tejal Pettit MD | | | | | | X / | | | | | | | | /[address] | | | | | | | | [address] | + +------+--------+ +--------+--------+--------+ Results Not on [...] | PPO | +253- | [address] [address] [place] | | | CROSS | | | [address] | [place] [address] | | | [place] | | | | | | | L | | | | | + +--------+ +--------+ + + | MEDICAID [place] | OHP | xxxxxxxx | Medica | +336- | [address] [address] | | | PLUS | | id | [phone] | [place] [address] | | | OPEN | | | [...] | Self | [birth year] | Home: | [address] | | | al/Negro | | 1956 | [phone] | [address] [place] | | | [place] | | | [address] | [address] | + +--------+ +--------+ + +
--- OUTSIDE RECORDS SUMMARY | ~2019-01-14 | XMS | Encounter Summary ---
Demographics + + + | Address | [address] | | | [place] [address] | + + + | Home Phone [...] [place] | | | | | [address] | | + + + + + Care Team Providers + +------+ + | Care Flight Mechanic Name | Role | Phone | [...] | | | | | | [place] [address] | | | | | | [phone] | | | +--------+ + + + [...] | | | | | | [place] [address] | | | | | | [phone] | | | | | | | | +--------+ + + + + documented as of this encounter Visit Diagnoses Not on filedocumented in this encounter"
--- OUTSIDE RECORDS SUMMARY | ~2019-01-14 | XMS | Encounter Summary ---
Demographics + + + | Address | [address] | | | [place] [address] | + + + | Home Phone [...] [place] | | | | | [address] | | + + + + + Care Team Providers + +------+ + | Care Powder Monkey Name | Role | Phone | + [...] | | | | | | [place] [address] | | | | | | [phone] | | | +--------+ + + + [...] | | | | | | [place] [address] | | | | | | [phone] | | | | | | | | +--------+ + + + + documented as of this encounter Visit Diagnoses Not on filedocumented in this encounter"
--- OUTSIDE RECORDS SUMMARY | ~2019-01-14 | XMS | Encounter Summary ---
Demographics + + + | Address | [address] [place] [address] [address] | | | [place] [address] | + + + | Home Phone | | + + + | Preferred Language | Unknown | + + + | Marital Status | | + + + | Mandaeism Affiliation | Unknown | + + + | Race | Unknown | + + + | Ethnic Group | Unknown | + + + Author + + + | Author | Cassandra Skycross | + + + | Organization | [facility] | + + + | Address | Unknown | + + + | Phone | Unavailable | + + + Support + + +---------+ + | Name | Relationship | Address | Phone | + + +---------+ + | Venice Mckeon | ECON | Unknown | | + + +---------+ + Care Team Providers + +------+ + | Care Substation Operator Helper Generation Name | Role | Phone | + [...] HF chronicity, | | | | | [id number] | unspecified heart | | | | [...] MCKEON Date of : 1955 | [facility] | | Performing Physician: Rocio | RADIOLOGY | | [facility] | | | | | [...] MV A Rohan: 0.86 m/s MV Dec [place]: 3.26 m/s2 | | | MV DecT: [...] | 21.47 mmHg TR Vmax: 2.31 m/s Hand Welt Butter: ANJANA Authenticated | | | by: [facility]io [facility] Report Date/Time: 11-04-2018 19:16:25 | | + + + + + | Procedure Note | + + | Sebastian, Rad Results In - 11/04/2018 7:20 PM PST Patient Name: Belkys MCKEON of | | : 5Accession: [id number] Physician: Rocio | | [facility] INDICATIONS------ | | -----CHFCONCLUSIONS 1. [...] | 5.92 cmLVPWd: 1.01 cmLVOT Area: 3.17 nz2YLVP Diam: 2.01 cm%FS: 15.56 %EF(Teich): | | [...] mlLAESV Index (A-L): 42.88 ml/m2LAAs A2C: 24.92 qb9VYCSF A-L | | A2C: 95.08 mlLALs A2C: 5.54 cmLAAs A4C: 19.37 gj7LRQXP A-L A4C: 70.66 mlLALs | | A4C: 4.50 cmRAAs: 18.79 ic0PQUXC A-L: 67.38 mlRAESV MOD: 63.17 mlRALs: 4.44 | | cmTAPSE: 2.12 cmAV maxP.82 mmHgAV meanP.56 mmHgAV Vmax: 1.30 m/Emil | | Vmean: 0.88 m/Emil VTI: 25.33 cmAVA Vmax: 2.55 cm2AVA (VTI): 2.49 yy5VFCW (Vmax): | | 0.00 cm2/m2AVAI (VTI): 0.00 cm2/m2LVOT maxP.40 mmHgLVOT meanP.91 | | mmHgLVSI Dopp: 29.85 ml/m2LVSV Dopp: 63.29 mlLVOT Vmax: 1.04 m/sLVOT Vmean: 0.64 | | m/sLVOT VTI: 19.92 cmMV A Rohan: 0.86 m/sMV Dec [place]: 3.26 m/s2MV DecT: 218.32 | | msMV E Rohan: 0.71 m/sMV E/A Ratio: 0.82 MV PHT: 63.31 msMVA By PHT: 3.47 | | av5Sbgjat e': 0.04 m/sSeptal E/e': 15.51 Lateral e': 0.06 m/sLateral E/e': 10.91 | | RAP: 5 mmHgRVSP: 26.47 mmHgTR maxP.47 mmHgTR Vmax: 2.31 m/sSonographer: | | DBSAuthenticated by: Mershed [facility] Date/Time: 11-04-2018 19:16:25IMPRESSION:1. | | [...] A Rohan: 0.86 m/s | |MV Dec [place]: 3.26 m/s2 | |MV DecT: 218.32 ms [...] |TR Vmax: 2.31 m/s | | | |Hand Welt Butter: DBS | |Authenticated by: Rocio Pearl | [...] | + + + + + | [facility] | [address] | [place] [address] | | + + + + + in this encounter Visit Diagnoses + + | Diagnosis | + + | Congestive heart failure, unspecified HF chronicity, unspecified heart failure type | | (HCC) | + +"
--- OUTSIDE RECORDS SUMMARY | ~2019-01-14 | XMS | Encounter Summary ---
Demographics + + + | Address | [address] | | | [place] [address] | + + + | Home Phone [...] | [place] | | | | | [address] | | + + + + + Care Team Providers + +------+ + | Care Ore Crusher Name | Role | Phone | + [...] | | | involving | [address] | [place] | | | | | [place] | MARK[place] MCGUIRE | MARKO Herrera | | | | | coronary | [address] | [address] | | | | | artery of | Phone: | Phone: | | | | | [place] heart | [phone] | [phone] | | | | | without | Fax: | Fax: | | | | | angina | [phone] | [phone] | | | | | pectoris | | | + + + + + + + Encounter Details +--------+---------+ + + + | Date | Type | Department | Care Team | Description | +--------+---------+ + + + | 12/07/ | Office | [facility] | Randy Figueroa, | Coronary artery | | 2019 | Visit | MED CTR CARDIAC | MD [address] | disease involving | | | | REHABILITATION [address] | [address] [place], | [place] coronary | | | | [address] [place] | [place] [address] | artery of [place] | | | | [place] [address] | [phone] | heart without angina | | | | [phone] | | pectoris (Primary | | | [...] note might be different from the orig [facility] CARDIAC REHABILITATION [address] [facility] [address] Cardiac Rehab Date: 12/07/2018 Patient Information Patient [...] W | | | | | | [place], | | | | | | [place] [address] | | | | | | [phone] | | | | | | | [...]
--- OUTSIDE RECORDS SUMMARY | ~2019-01-14 | XMS | Encounter Summary ---
Demographics + + + | Address | [address] | | | [place] [address] | + + + | Home Phone [...] | [place] | | | | | [address] | | + + + + + Care Team Providers + +------+ + | Care Bi Consultant Name | Role | Phone | [...] | | | involving | [address] | [place] | | | | | [place] | MARKO MCGUIRE | MARKO Herrera | | | | | coronary | [address] | [address] | | | | | artery of | Phone: | Phone: | | | | | [place] heart | [phone] | [phone] | | | | | without | Fax: | Fax: | | | | | angina | [phone] | [phone] | | | | | pectoris | | | + + + + + + + Encounter Details +--------+---------+ + + + | Date | Type | Department | Care Team | Description | +--------+---------+ + + + | 11/23/ | Office | [facility] | Rahullindacathy Lindaangusleo, | Acute on chronic | | 2019 | Visit | MED CTR CARDIAC | MD [address] | systolic congestive | | | | REHABILITATION [address] | [facility] [facility], | heart failure (HCC) | | | | [address] [place] | [place] [address] | (Primary Dx) | | | | [place] [address] | [phone] | | | | | [phone] | | | +--------+---------+ + + + [...] of this encounter Progress Jonah Coker-Cheri Kendrick, MACHINE REPAIRER - 11/23/2018 1000 PDTFormatting of this note might be diff erent from the original. [facility] CARDIAC REHABILITATION [address] [facility] [address] Cardiac Rehab Date: 11/23/2018 Patient Information Patient [...] [place], | | | | | | [place] [address] | | | | | | [phone] | | | | | | | | +--------+ + + + + documented as of this encounter Visit Diagnoses + + | Diagnosis | + + | Acute on chronic systolic congestive heart failure (HCC) - Primary Acute on chronic | | systolic heart failure | + + documented in this encounter"
--- OUTSIDE RECORDS SUMMARY | ~2019-01-14 | XMS | Encounter Summary ---
Demographics + + + | Address | [address] | | | [place] [address] | + + + | Home Phone [...] | [place] | | | | | [address] | | + + + + + Care Team Providers + +------+ + | Care Line Analyst Name | Role | Phone | [...] | | | involving | [address] | [place] | | | | | [facility] | [place], [place] | [place], [place] | | | | | coronary | [address] | [address] | | | | | artery of | Phone: | Phone: | | | | | [facility] [place] heart | [phone] | [phone] | | | | | without | Fax: | Fax: | | | | | angina | [phone] | [phone] | | | | | pectoris | | | + + + + + + + Encounter Details +--------+---------+ + + + | Date | Type | Department | Care Team | Description | +--------+---------+ + + + | 11/18/ | Office | [facility] | Randy Figueroa, | Coronary artery | | 2019 | Visit | MED CTR CARDIAC | [address] | disease involving | | | | REHABILITATION [address] | [address] [place], | [place] coronary | | | | [address] [place] | [place] [address] | artery of [place] | | | | [place] [address] | [phone] | heart without angina | | | | [phone] | | pectoris (Primary | | | [...] the orig inayocasta. [facility] CARDIAC REHABILITATION [address] [facility] [address] Cardiac Rehab Date: 11/18/2018 Patient Information Patient [...] | | | | | | [place] [address] | | | | | | [phone] | | | | | | | [...]
--- OUTSIDE RECORDS SUMMARY | ~2019-01-14 | XMS | Encounter Summary ---
Demographics + + + | Address | [address] | | | [place] [address] | + + + | Home Phone [...] [place] | | | | | [address] | | + + + + + Care Team Providers + +------+ + | Care Silviculture Forester Name | Role | Phone | + [...] | 10/27/ | Telephone | [facility] | Jenny, | Other (medication | | 2018 | | CARDIOLOGY [address] | ADARSH [address] | issue) | | | | [place], | [place], | | | | | [place] [address] | [place] [address] | | | | | [phone] | [phone] | | | | | | | [...] W | | | | | | [place], | | | | | | [place] [address] | | | | | | [phone] | | | | | | | [...]
--- OUTSIDE RECORDS SUMMARY | ~2019-01-14 | XMS | Encounter Summary ---
Demographics + + + | Address | [address] | | | [place] [address] | + + + | Home Phone [...] | [place] | | | | | [address] | | + + + + + Care Team Providers + +------+ + | Care Environmental Communications Specialist Name | Role | Phone | [...] | | | involving | [address] | [place] | | | | | [place] | MARKO MCGUIRE | MARKO Herrera | | | | | coronary | [address] | [address] | | | | | artery of | Phone: | Phone: | | | | | [place] heart | [phone] | [phone] | | | | | without | Fax: | Fax: | | | | | angina | [phone] | [phone] | | | | | pectoris | | | + + + + + + + Encounter Details +--------+---------+ + + + | Date | Type | Department | Care Team | Description | +--------+---------+ + + + | 11/25/ | Office | [facility] | Carolina Randy, | Coronary artery | | 2019 | Visit | MED CTR CARDIAC | MD [address] | disease involving | | | | REHABILITATION [address] | [address] [place], | [place] coronary | | | | [address] [place] | [place] [address] | artery of [place] | | | | [place] [address] | [phone] | heart without angina | | | | [phone] | | pectoris (Primary | | | [...] of this encounter Progress Jonah Coker-Cheri Kendrick, PERSONNEL OFFICER - 11/25/2018 1000 PDTFormatting of this note might be diff erent from the original. [facility] CARDIAC REHABILITATION [address] [facility] [address] Cardiac Rehab Date: 11/25/2018 Patient Information Patient [...] W | | | | | | [place], | | | | | | [place] [address] | | | | | | [phone] | | | | | | | | +--------+ + + + + documented as of this encounter Visit Diagnoses + + | Diagnosis | + + | Coronary artery disease involving [place] coronary artery of [place] heart without | | angina pectoris - Primary | + + | Post PTCA Postsurgical percutaneous transluminal coronary angioplasty status | + + documented in this encounter"
--- OUTSIDE RECORDS SUMMARY | ~2019-01-14 | XMS | Encounter Summary ---
Demographics + + + | Address | [address] | | | [place] [address] | + + + | Home Phone [...] | [place] | | | | | [address] | | + + + + + Care Team Providers + +------+ + | Care Vessel Engineer Name | Role | Phone | [...] | | | involving | [address] | [place] | | | | | [place] | [place], [place] | [place], [place] | | | | | coronary | [address] | [address] | | | | | artery of | Phone: | Phone: | | | | | [place] heart | [phone] | [phone] | | | | | without | Fax: | Fax: | | | | | angina | [phone] | [phone] | | | | | pectoris | | | + + + + + + + Encounter Details +--------+---------+ + + + | Date | Type | Department | Care Team | Description | +--------+---------+ + + + | 10/21/ | Office | [facility] | Randy Figueroa, | Coronary artery | | 2019 | Visit | MED CTR CARDIAC | MD [address] | disease, angina | | | | REHABILITATION [address] | [address] [place], | presence | | | | [address] [place] | [place] [address] | unspecified, | | | | [place] [address] | [phone] | unspecified vessel | | | | [phone] | | or lesion type, | | [...] of this encounter Progress Notes Ana Thomas, EMBROIDERY CUTTER - 10/21/2018 1000 PSTFormatting of this note might be different fro m the original. [facility] CARDIAC REHABILITATION [address] [facility] [address] Cardiac Rehab Date: 10/21/2018 Patient Information Patient Name: Bob Will Date of : 1955 Age: 62 y.o. Encounter Diagnoses Code Name Primary? I25.10 Coronary artery disease, angina presence unspecified, unspecified vessel or lesi on type, unspecified whether [place] or transplanted heart Yes Number of Visits [...] which is much higher than Ashok's norm. front desk monitor was placed. No significant change noted [...] had came directly [facility] [place] [facility] where changes in medication was made. Ashok states they stopped his Entresto and increased Lasix to two tabs daily. also notified to [facility] Ashok. Any abnormal vital signs or [...] | | | | | | [place] [address] | | | | | | [phone] | | | | | | | | +--------+ + + + + documented as of this encounter Visit Diagnoses + + | Diagnosis | + + | Coronary artery disease, angina presence unspecified, unspecified vessel or lesion | | type, unspecified whether [place] or transplanted heart - Primary | + + documented in this encounter"
--- OUTSIDE RECORDS SUMMARY | ~2019-01-14 | XMS | Encounter Summary ---
Demographics + + + | Address | [address] | | | [place] [address] | + + + | Home Phone [...] [place] | | | | | [address] | | + + + + + Care Team Providers + +------+ + | Care Real Estate Underwriter Name | Role | Phone | + [...] + + | 11/18/ | Telephone | [facility] | Jenny, | Blood Pressure | | 2019 | | CARDIOLOGY [address] | [place], SAP BASIS ADMINISTRATOR [address] | | | | | [place], | [place], | | | | | [place] [address] | [place] [address] | | | | | [phone] | [phone] | | | | | | | [...] | | | | | | [place] [address] | | | | | | [phone] | | | | | | | | +--------+ + + + + documented as of this encounter Visit Diagnoses Not on filedocumented in this encounter"
--- OUTSIDE RECORDS SUMMARY | ~2019-01-14 | XMS | Encounter Summary ---
Demographics + + + | Address | [address] | | | [place] [address] | + + + | Home Phone [...] [place] | | | | | [address] | | + + + + + Care Team Providers + +------+ + | Care Nitrocellulose Maker Name | Role | Phone | [...] + | 10/27/ | Telephone | [facility] | Jenny, | Other (medication | | 2018 | | CARDIOLOGY [address] | ADARSH S[address] | issue) | | | | [place], | [place], | | | | | [place] [address] | [place] [address] | | | | | [phone] | [phone] | | | | | | | [...] W | | | | | | [place], | | | | | | [place] [address] | | | | | | [phone] | | | | | | | [...]
--- OUTSIDE RECORDS SUMMARY | ~2019-01-14 | XMS | Encounter Summary ---
Demographics + + + | Address | [address] [place] [address] [address] | | | [place] [address] | + + + | Home Phone | | + + + | Preferred Language | Unknown | + + + | Marital Status | | + + + | Faith Affiliation | Unknown | + + + | Race | Unknown | + + + | Ethnic Group | Unknown | + + + Author + + + | Author | Cassandra Cubbying | + + + | Organization | [facility] | + + + | Address | Unknown | + + + | Phone | Unavailable | + + + Support + + +---------+ + | Name | Relationship | Address | Phone | + + +---------+ + | Venice Mckeon | ECON | Unknown | | + + +---------+ + Care Team Providers + +------+ + | Care Lockstitch Sleeve Maker Name | Role | Phone | [...] HF chronicity, | | | | | [address] | unspecified heart | | | | [...] RON MCKEON Date of : 1955 | [facility] | | Performing Physician: Rocio | RADIOLOGY | | [facility] | | | | | | INDICATIONS [...] MV A Rohan: 0.86 m/s MV Dec [place]: 3.26 m/s2 | | | MV DecT: [...] | 21.47 mmHg TR Vmax: 2.31 m/s Retail Specialist: ANJANA Authenticated | | | by: Rocio [facility] Report Date/Time: 11-04-2018 19:16:25 | | + + + + + | Procedure Note | + + | Sebastian, Rad Results In - 11/04/2018 7:20 PM PST Patient Name: Belkys MCKEON of | | : 5Accession: [id number] Physician: Rocio | | [facility] INDICATIONS------ | | -----CHFCONCLUSIONS 1. This was [...] | 5.92 cmLVPWd: 1.01 cmLVOT Area: 3.17 lw7GXAR Diam: 2.01 cm%FS: 15.56 %EF(Teich): | | [...] mlLAESV Index (A-L): 42.88 ml/m2LAAs A2C: 24.92 yz7RWFSQ A-L | | A2C: 95.08 mlLALs A2C: 5.54 cmLAAs A4C: 19.37 jl6XRMMT A-L A4C: 70.66 mlLALs | | A4C: 4.50 cmRAAs: 18.79 ci8XGMMV A-L: 67.38 mlRAESV MOD: 63.17 mlRALs: 4.44 | | cmTAPSE: 2.12 cmAV maxP.82 mmHgAV meanP.56 mmHgAV Vmax: 1.30 m/Emil | | Vmean: 0.88 m/Emil VTI: 25.33 cmAVA Vmax: 2.55 cm2AVA (VTI): 2.49 cc0VYDO (Vmax): | | 0.00 cm2/m2AVAI (VTI): 0.00 cm2/m2LVOT maxP.40 mmHgLVOT meanP.91 | | mmHgLVSI Dopp: 29.85 ml/m2LVSV Dopp: 63.29 mlLVOT Vmax: 1.04 m/sLVOT Vmean: 0.64 | | m/sLVOT VTI: 19.92 cmMV A Rohan: 0.86 m/sMV Dec [place]: 3.26 m/s2MV DecT: 218.32 | | msMV E Rohan: 0.71 m/sMV E/A Ratio: 0.82 MV PHT: 63.31 msMVA By PHT: 3.47 | | sz7Eofyhi e': 0.04 m/sSeptal E/e': 15.51 Lateral e': 0.06 m/sLateral E/e': 10.91 | | RAP: 5 mmHgRVSP: 26.47 mmHgTR maxP.47 mmHgTR Vmax: 2.31 m/sSonographer: | | DBSAuthenticated by: Mershed [facility] Date/Time: 11-04-2018 19:16:25IMPRESSION:1. | | This was [...] A Rohan: 0.86 m/s | |MV Dec [place]: 3.26 m/s2 | |MV DecT: 218.32 ms [...] |TR Vmax: 2.31 m/s | | | |Retail Specialist: DBS | |Authenticated by: Rocio Pearl | [...] | + + + + + | [facility] | [address] | [place] [address] | | + + + + + in this encounter Visit Diagnoses + + | Diagnosis | + + | Congestive heart failure, unspecified HF chronicity, unspecified heart failure type | | (HCC) | + +"
--- OUTSIDE RECORDS SUMMARY | ~2019-01-14 | XMS | Encounter Summary ---
Demographics + + + | Address | [address] | | | [place] [address] | + + + | Home Phone [...] | [place] | | | | | [address] | | + + + + + Care Team Providers + +------+ + | Care Bore Mill Operator Name | Role | Phone | [...] | | | involving | [address] | [place] | | | | | [place] | MARKO MCGUIRE | [place] Herrera | | | | | coronary | [address] | [address] | | | | | artery of | Phone: | Phone: | | | | | [place] heart | [phone] | [phone] | | | | | without | Fax: | Fax: | | | | | angina | [phone] | [phone] | | | | | pectoris | | | + + + + + + + Encounter Details +--------+---------+ + + + | Date | Type | Department | Care Team | Description | +--------+---------+ + + + | 11/30/ | Office | [facility] | Carolina Randy, | Coronary artery | | 2019 | Visit | MED CTR CARDIAC | MD [address] | disease involving | | | | REHABILITATION [address] | [address] [place], | [place] coronary | | | | [address] [place] | [place] [address] | artery of [place] | | | | [place] [address] | [phone] | heart without angina | | | | [phone] | | pectoris (Primary | | | [...] note might be different from the orig [facility] CARDIAC REHABILITATION [address] [facility] [address] Cardiac Rehab Date: 11/30/2018 Patient Information Patient Name: Bob Will Date of : 1955 Age: 63 y.o. Encounter Diagnoses Code Name Primary? I25.10 Coronary artery disease involving [place] coronary artery of [place] heart without angina pectoris Yes Z98.61 Post [...] W | | | | | | [place], | | | | | | [place] [address] | | | | | | [phone] | | | | | | | | +--------+ + + + + documented as of this encounter Visit Diagnoses + + | Diagnosis | + + | Coronary artery disease involving [place] coronary artery of [place] heart without | | angina pectoris - Primary | + + | Post PTCA Postsurgical percutaneous transluminal coronary angioplasty status | + + documented in this encounter"
--- OUTSIDE RECORDS SUMMARY | ~2019-01-14 | XMS | Encounter Summary ---
Demographics + + + | Address | [address] | | | [place] [address] | + + + | Home Phone [...] [place] | | | | | [address] | | + + + + + Care Team Providers + +------+ + | Care Junior Php Developer Name | Role | Phone | [...] Monitor | CARDIOLOGY [address] | [address] [place] | Interrogation | | | | [place], | [place], | (Primary Dx); TEXTILE KNITTER-D | | | | [place] [address] | [place] [address] | (AICD) [employer] | | | | [phone] | [phone] | 10/16/17 [facility] Wilner; | | | [...] W | | | | | | [place], | | | | | | [place] [address] | | | | | | [phone] | | | | | | | [...] | e | 23:59 PDT | Interrogation TEXTILE KNITTER-D | procedure are in the | | [...] remote PDF scanned into | | | [facility] for remote interrogation results. Data [...] | cardiac defibrillator | + + | TEXTILE KNITTER-D ASHLEE) [employer] 10/16/17 EULOGIO Darby | + + | Ischemic cardiomyopathy Other specified forms of chronic ischemic heart disease | + + documented in this encounter"
--- OUTSIDE RECORDS SUMMARY | ~2019-01-14 | XMS | Encounter Summary ---
Demographics + + + | Address | [address] [place] [address] [address] | | | [place] [address] | + + + | Home Phone | | + + + | Preferred Language | Unknown | + + + | Marital Status | | + + + | Nondenominational Affiliation | Unknown | + + + | Race | Unknown | + + + | Ethnic Group | Unknown | + + + Author + + + | Author | Cassandra [employer] | + + + | Organization | [facility] [employer] | + + + | Address | Unknown | + + + | Phone | Unavailable | + + + Support + + +---------+ + | Name | Relationship | Address | Phone | + + +---------+ + | Venice Mckeon | ECON | Unknown | | + + +---------+ + Care Team Providers + +------+ + | Care Store Keeper Name | Role | Phone | [...] HF chronicity, | | | | | [address] | unspecified heart | | | | [...] RON MCKEON Date of : 1955 | [facility] | | Performing Physician: Rocio | RADIOLOGY | | [place] | | | | | | INDICATIONS [...] MV A Rohan: 0.86 m/s MV Dec [place]: 3.26 m/s2 | | | MV DecT: [...] | 21.47 mmHg TR Vmax: 2.31 m/s Gas Burner Operator: ANJANA Authenticated | | | by: Rocio Pearl Report Date/Time: 11-04-2018 19:16:25 | | + + + + + | Procedure Note | + + | Sebastian, Rad Results In - 11/04/2018 7:20 PM PST Patient Name: Belkys MCKEON of | | : 5Accession: [id number] Physician: Rocio | | [place] INDICATIONS------ | [...] | 5.92 cmLVPWd: 1.01 cmLVOT Area: 3.17 am7QXES Diam: 2.01 cm%FS: 15.56 %EF(Teich): | | [...] mlLAESV Index (A-L): 42.88 ml/m2LAAs A2C: 24.92 cn7UAOFV A-L | | A2C: 95.08 mlLALs A2C: 5.54 cmLAAs A4C: 19.37 wr7HQTIU A-L A4C: 70.66 mlLALs | | A4C: 4.50 cmRAAs: 18.79 mf5BCWFR A-L: 67.38 mlRAESV MOD: 63.17 mlRALs: 4.44 | | cmTAPSE: 2.12 cmAV maxP.82 mmHgAV meanP.56 mmHgAV Vmax: 1.30 m/Emil | | Vmean: 0.88 m/Emil VTI: 25.33 cmAVA Vmax: 2.55 cm2AVA (VTI): 2.49 uu2NPUI (Vmax): | | 0.00 cm2/m2AVAI (VTI): 0.00 cm2/m2LVOT maxP.40 mmHgLVOT meanP.91 | | mmHgLVSI Dopp: 29.85 ml/m2LVSV Dopp: 63.29 mlLVOT Vmax: 1.04 m/sLVOT Vmean: 0.64 | | m/sLVOT VTI: 19.92 cmMV A Rohan: 0.86 m/sMV Dec [place]: 3.26 m/s2MV DecT: 218.32 | | msMV E Rohan: 0.71 m/sMV E/A Ratio: 0.82 MV PHT: 63.31 msMVA By PHT: 3.47 | | aq8Galegh e': 0.04 m/sSeptal E/e': 15.51 Lateral e': 0.06 m/sLateral E/e': 10.91 | | RAP: 5 mmHgRVSP: 26.47 mmHgTR maxP.47 mmHgTR Vmax: 2.31 m/sSonographer: | | DBSAuthenticated by: Rocio AlsburkettsvilleraReport Date/Time: 11-04-2018 19:16:25IMPRESSION:1. | | This was [...] A Rohan: 0.86 m/s | |MV Dec [place]: 3.26 m/s2 | |MV DecT: 218.32 ms [...] |TR Vmax: 2.31 m/s | | | |Gas Burner Operator: ANJANA | |Authenticated by: Rocio Licoeloy | [...] + + | MARI ADLER | [phone] | [place] [id number] | | + + + + + in this encounter Visit Diagnoses + + | Diagnosis | + + | Congestive heart failure, unspecified HF chronicity, unspecified heart failure type | | (HCC) | + +"
--- OUTSIDE RECORDS SUMMARY | ~2019-01-14 | XMS | Encounter Summary ---
Demographics + + + | Address | [address] | | | [place] [address] | + + + | Home Phone [...] | [place] | | | | | [address] | | + + + + + Care Team Providers + +------+ + | Care It Systems Analyst Name | Role | Phone [...] | | | involving | [address] | [place] | | | | | [place] | [place]CGUIRE | [place] | | | | | coronary | [address] | [address] | | | | | artery of | Phone: | Phone: | | | | | [place] heart | [phone] | [phone] | | | | | without | Fax: | Fax: | | | | | angina | [phone] | [phone] | | | | | pectoris | | | + + + + + + + Encounter Details +--------+---------+ + + + | Date | Type | Department | Care Team | Description | +--------+---------+ + + + | 11/09/ | Office | [facility] | Randy Figueroa, | Coronary artery | | 2019 | Visit | MED CTR CARDIAC | MD [address] | disease involving | | | | REHABILITATION [address] | [place], | [place] coronary | | | | [address] [place] | [place] [address] | artery of [place] | | | | [place] [address] | [phone] | heart without angina | | | | [phone] | | pectoris (Primary | | | [...] of this encounter Progress Jonah Coker-Cheri Kendrick, WARDROBE CUSTODIAN - 11/09/2018 1000 PSTFormatting of this note might be diff erent from the original. [facility] CARDIAC REHABILITATION [address] [facility] [address] Cardiac Rehab Date: 11/09/2018 Patient Information Patient Name: Bob Will Date of : 1955 Age: 63 y.o. Encounter Diagnoses Code Name Primary? I25.10 Coronary artery disease involving [place] coronary artery of [place] heart without angina pectoris Yes Number of [...] | | | | | | [place] [address] | | | | | | [phone] | | | | | | | | +--------+ + + + + documented as of this encounter Visit Diagnoses + + | Diagnosis | + + | Coronary artery disease involving [place] coronary artery of [place] heart without | | angina pectoris - Primary | + + documented in this encounter"
--- OUTSIDE RECORDS SUMMARY | ~2019-01-14 | XMS | Encounter Summary ---
Demographics + + + | Address | [address] | | | [place] [address] | + + + | Home Phone [...] | [place] | | | | | [address] | | + + + + + Care Team Providers + +------+ + | Care Bottoming Room Supervisor Name | Role | Phone [...] | | involving | [address] | [place] | | | | | craig | MARKO MCGUIRE | MARKO Herrera | | | | | coronary | [address] | [address] | | | | | artery of | Phone: | Phone: | | | | | craig heart | [phone] | [phone] | | | | | without | Fax: | Fax: | | | | | angina | [phone] | [phone] | | | | | pectoris | | | + + + + + + + Encounter Details +--------+---------+ + + + | Date | Type | Department | Care Team | Description | +--------+---------+ + + + | 11/30/ | Office | [facility] | Carolina Randy, | Coronary artery | | 2019 | Visit | MED CTR CARDIAC | MD [address] | disease involving | | | | REHABILITATION [address] | [place], | craig coronary | | | | [address] [place] | [place] [address] | artery of cra[place] | | | | [place] [address] | [phone] | heart without angina | | | | [phone] | | pectoris (Primary | | | [...] note might be different from the orig [facility] CARDIAC REHABILITATION [address] [facility] [address] Cardiac Rehab Date: 11/30/2018 Patient Information Patient Name: Bob Will Date of : 1955 Age: 63 y.o. Encounter Diagnoses Code Name Primary? I25.10 Coronary artery disease involving cra[place] coronary artery of craig heart without angina pectoris Yes Z98.61 Post [...] | | | | | | [place], | | | | | | [place] [address] | | | | | | [phone] | | | | | | | | +--------+ + + + + documented as of this encounter Visit Diagnoses + + | Diagnosis | + + | Coronary artery disease involving craig coronary artery of [place]ig heart without | | angina pectoris - Primary | + + | Post PTCA Postsurgical percutaneous transluminal coronary angioplasty status | + + documented in this encounter"
--- OUTSIDE RECORDS SUMMARY | ~2019-01-14 | XMS | Encounter Summary ---
Demographics + + + | Address | [address] | | | [place] [address] | + + + | Home Phone [...] [place] | | | | | [address] | | + + + + + Care Team Providers + +------+ + | Care Athletic Coach Name | Role | Phone | + [...] | Telephone | [facility] [place] | [place], | Medication Related | | 2018 | | CARDIOLOGY [address] | ADARSH Santo [address] | | | | | [place], | [place], | | | | | [place] [address] | [place] [address] | | | | | [phone] | [phone] | | | | | | | [...] | | | | | | [place], | | | | | | [place] [address] | | | | | | [phone] | | | | | | | [...] | starting 11/30/2018 | | | | [place] coronary | until 12/01/2019 | | | | artery of [place] | | | | | heart without angina | | | | | pectoris | | + +--------+ + + documented as of this encounter Visit Diagnoses + + | Diagnosis | + + | Coronary artery disease involving [place] coronary artery of [place] heart without | | angina pectoris - Primary | + + documented in this encounter"
--- OUTSIDE RECORDS SUMMARY | ~2019-01-14 | XMS | Encounter Summary ---
Demographics + + + | Address | [address] | | | [place] [address] | + + + | Home Phone [...] | [place] | | | | | [address] | | + + + + + Care Team Providers + +------+ + | Care Bowling Alley Manager Name | Role | Phone | [...] | | | involving | [address] | [place] | | | | | [place] | [place] MCGUIRE | [place] | | | | | coronary | [address] | [address] | | | | | artery of | Phone: | Phone: | | | | | [place] heart | [phone] | [phone] | | | | | without | Fax: | Fax: | | | | | angina | [phone] | [phone] | | | | | pectoris | | | + + + + + + + Encounter Details +--------+---------+ + + + | Date | Type | Department | Care Team | Description | +--------+---------+ + + + | 11/09/ | Office | [facility] | Randy Figueroa, | Coronary artery | | 2019 | Visit | MED CTR CARDIAC | MD [address] | disease involving | | | | REHABILITATION [address] | [place], | [place] coronary | | | | [address] [place] | [place] [address] | artery of [place] | | | | [place] [address] | [phone] | heart without angina | | | | [phone] | | pectoris (Primary | | | [...] of this encounter Progress Jonah Coker-Cheri Kendrick, AFRICAN STUDIES PROFESSOR - 11/09/2018 1000 PSTFormatting of this note might be diff erent from the original. [facility] CARDIAC REHABILITATION [address] [facility] [address] Cardiac Rehab Date: 11/09/2018 Patient Information Patient Name: Bob Will Date of : 1955 Age: 63 y.o. Encounter Diagnoses Code Name Primary? I25.10 Coronary artery disease involving [place] coronary artery of [place] heart without angina pectoris Yes Number of [...] | | | | | | [place] [address] | | | | | | [phone] | | | | | | | | +--------+ + + + + documented as of this encounter Visit Diagnoses + + | Diagnosis | + + | Coronary artery disease involving [place] coronary artery of [place] heart without | | angina pectoris - Primary | + + documented in this encounter"
--- OUTSIDE RECORDS SUMMARY | ~2019-01-14 | XMS | Clinical Summary ---
Demographics + + + | Address | [address] | | | [place] [address] | + + + | Home Phone [...] [place] | | | | | [address] | | + + + + + Care Team Providers + +------+ + | Care Gun Club Manager Name | Role | Phone | [...] | | Activ | | (VITAMIN D-3) [id number] | a week. | | | | [...] | | nasal spray | nasal spray [place] 2 | | | | | | [...] e | | spray | aerosol spray [place] | | | | | | | [...] | 11/12/2017 | + + + | BIODIESEL PLANT MANAGER-D (AICD) Medtronic 10/16/17 EULOGIO Draby | 10/19/2017 | + + + + + | Overview: Formatting of this note might be different from the | | original. MODEL NAME MODEL# SERIAL# DATE IMPLANTED GENERATOR | | Medtronic [id number] 10/16/17 RV LEAD Medtronic [id number] | | [id number] 10/16/17 A LEAD Medtronic [id number] 10/16/17 | | Coronary Sinus LEAD Medtronic [id number] 10/16/17 | | Indication: ischemic cardiomyopathy with reduced EF 30-35% Last | | Assessment & Plan: Medtronic AICD Placed in 10/2017 at [facility]. | | A:-Patient ventricular paced 100% this morning. No arrhythmias on | | telemetry.P:-No acute therapy. Continue current therapy. | | | | Last Assessment & Plan: Medtronic AICD Placed in 10/2017 at [facility]. | | | |A: | |-Patient [...] + + + | Overview: S/P Medtronic BIODIESEL PLANT MANAGER-D 10-16-17 Dr Darby, [facility] Scan | | 10/13/17 shows No [...] + + | Coronary artery disease involving [place] coronary artery of | 04/06/2017 | | [place] heart without angina pectoris | | + [...] + + + | Acute anterior wall LA | 04/03/2017 | + + + + [...] involving | | | | | | [place] coronary | | | | | | artery of [place] | | | | | | heart without angina | | | | | | pectoris (Primary | | | | | | Dx); Post PTCA | +--------+ + + + + | 12/07/ | Office | | Randy Figueroa, | Coronary artery | | 2018 | Visit | | MD | disease involving | | | | | | [place] coronary | | | | | | artery of [place] | | | | | | heart [...] | | | | | (Primary Dx); BIODIESEL PLANT MANAGER-D | | | | | | (AICD) Medtronic | | | | | | 10/16/17 [facility] Wilner; | | | | | | Ischemic | | | | | | cardiomyopathy | +--------+ + + + + | 12/02/ | Office | | Randy Figueroa, | Coronary artery | | 2018 | Visit | | MD | disease involving | | | | | | [place] coronary | | | | | | artery of [place] | | | | | | heart [...] involving | | | | | | [place] coronary | | | | | | artery of [place] | | | | | | heart [...] involving | | | | | | [place] coronary | | | | | | artery of [place] | | | | | | heart [...] involving | | | | | | [place] coronary | | | | | | artery of [place] | | | | | | heart [...] involving | | | | | | [place] coronary | | | | | | artery of [place] | | | | | | heart [...] whether | | | | | | [place] or | | | | | | [...] whether | | | | | | [place] or | | | | | | [...] | | | | | | [place] [address] | | | | | | [phone] | | | | | | | [...] Generi | Left: | TERUMO LORIN | [id number] | 12/05/ | [id number] | | [id number]: Qty: 1 | c | Groin | - TERU | [id number] | 2019 | / | | on 05/19/2018 by The, | | | | 20 | | /[id number] | | Khurram Isabel MD | | | | | | 371 | + +--------+--------+ +--------+--------+--------+ | Individualized Education Plan Aide-D MedtronicImplanted: | Implan | | MEDTRONIC - [...] N/A: | ISAACS | | 12/29/ | [id number] | | Eluting Coronary Stent System | | [place] | DIAGNOSTICS | | 2020 | 0-18 / | | Implanted: Qty: 1 on | | ry | - DAINA | | | | | 03/15/2017 by Monse Ross, | | | | | | /[id number] | | MD | | | | | | 61 | + +--------+--------+ +--------+--------+--------+ | Xience Alpine Everolimus | Stent | N/A: | ISAACS | | 11/03/ | [id number] | | Eluting Coronary Stent System | | [place] | DIAGNOSTICS | | 2019 | 0-23 / | | Implanted: Qty: 1 on | | ry | - DAINA | | | | | 03/15/2017 by Monse Ross, | | | | | | /[id number] | | MD | | | | | | 41 | + +--------+--------+ +--------+--------+--------+ | Kit Perclose Proglide 6fr - | | Right: | SHITAL | [id number] | | 20573- | | [id number]: Qty: 1 | | Alessiain | VASCULAR - | [id number] | | 03 / / | | on 05/19/2018 by Missael, | | | ABVA | 89 | | | | Khurram Isabel MD | | | | | | | + +--------+--------+ +--------+--------+--------+ | Kit Perclose Proglide 6fr - | | Right: | ISAACS | [id number] | | 40051- | | [id number]: Qty: 1 | | Alessiain | VASCULAR - | [id number] | | 03 / | | on [...] | e | 23:59 PDT | Interrogation BIODIESEL PLANT MANAGER-D | procedure are in the | | REMOTE | | | [facility] Medtronic | results section. | | | | | 10/16/17 [facility] Wilner | | | | | [...] remote PDF scanned into | | | [facility] for remote interrogation results. Data collected [...] | [employer] | MODA | [id number] | | [phone] | | Medica | | MEDICAID HMO | HEALTH | | 018-Pr | 1 | | id | | | MDCD | | esent | | | | | | HMO OR | | | | | | + +--------+ +--------+ +---------+--------+ | [employer]ERANS ADMIN | VETERA | [id number] | 07/24/ | | | Indemn | | | NS | | 2016-P | | | ity | | | ADMIN | | resent | | | | | | [place] | | | | | | | | [place] | | | | | | + +--------+ +--------+ +---------+--------+ | [employer]ER[employer] ADMIN | VETERA | [id number] | 07/24/ | | | Indemn | [...] taiwo | | | 8 (Home) | [address] | + +--------+ +--------+ + + Advance Directives Patient has advance care planning documents, and code status on file. For more information, please contact:[facility] [place] [facility] [place] [address] + + + + + | Code [...]
--- OUTSIDE RECORDS SUMMARY | ~2019-01-14 | XMS | Encounter Summary ---
Demographics + + + | Address | [address] | | | [place] [address] | + + + | Home Phone [...] [place] | | | | | [address] | | + + + + + Care Team Providers + +------+ + | Care Bone Tender Name | Role | Phone | [...] + + | 11/18/ | Telephone | [facility] | Jenny, | Blood Pressure | | 2019 | | CARDIOLOGY [address] | [place], WE[employer]ER [employer] LOOM [address] | | | | | [place], | [place], | | | | | [place] [address] | [place] [address] | | | | | [phone] | [phone] | | | | | | | [...] | | | | | | [place] [address] | | | | | | [phone] | | | | | | | | +--------+ + + + + documented as of this encounter Visit Diagnoses Not on filedocumented in this encounter"
--- OUTSIDE RECORDS SUMMARY | ~2019-01-14 | XMS | Encounter Summary ---
Demographics + + + | Address | [address] | | | [place] [address] | + + + | Home Phone [...] | [place] | | | | | [address] | | + + + + + Care Team Providers + +------+ + | Care Security Ambassador Name | Role | Phone | + [...] | | | involving | [address] | [place] | | | | | tribe | [place] M[place]UIRE | MARK[place] Herrera | | | | | coronary | [address] | [address] | | | | | artery of | Phone: | Phone: | | | | | tribe heart | [phone] | [phone] | | | | | without | Fax: | Fax: | | | | | angina | [phone] | [phone] | | | | | pectoris | | | + + + + + + + Encounter Details +--------+---------+ + + + | Date | Type | Department | Care Team | Description | +--------+---------+ + + + | 12/07/ | Office | [facility] | Randy Figueroa, | Coronary artery | | 2019 | Visit | MED CTR CARDIAC | MD [address] | disease involving | | | | REHABILITATION [address] | [place], | tribe coronary | | | | [address] [place] | [place] [address] | artery of tribe | | | | [place] [address] | [phone] | heart without angina | | | | [phone] | | pectoris (Primary | | | [...] might be different from the orig [facility] CARDIAC REHABILITATION [address] [facility] [address] Cardiac Rehab Date: 12/07/2018 Patient Information Patient Name: Bob Will Date of : 1955 Age: 63 y.o. Encounter Diagnoses Code Name Primary? I25.10 Coronary artery disease involving tribe coronary artery of tribe heart without angina pectoris Yes Z98.61 [...] W | | | | | | [place], | | | | | | [place] [address] | | | | | | [phone] | | | | | | | | +--------+ + + + + documented as of this encounter Visit Diagnoses + + | Diagnosis | + + | Coronary artery disease involving tribe coronary artery of tribe heart without | | angina pectoris - Primary | + + | Post PTCA Postsurgical percutaneous transluminal coronary angioplasty status | + + documented in this encounter"
--- OUTSIDE RECORDS SUMMARY | ~2019-01-14 | XMS | Encounter Summary ---
Demographics + + + | Address | [address] | | | [place] [address] | + + + | Home Phone [...] [place] | | | | | [address] | | + + + + + Care Team Providers + +------+ + | Care Patient Biller Name | Role | Phone | + [...] | Telephone | [facility] [place] | [place], | Medication Related | | 2018 | | CARDIOLOGY [address] | ADARSH Santo [address] | | | | | [place], | [place], | | | | | [place] [address] | [place] [address] | | | | | [phone] | [phone] | | | | | | | [...] W | | | | | | [place], | | | | | | [place] [address] | | | | | | [phone] | | | | | | | [...] | starting 11/30/2018 | | | | [place] coronary | until 12/01/2019 | | | | artery of [place] | | | | | heart without angina | | | | | pectoris | | + +--------+ + + documented as of this encounter Visit Diagnoses + + | Diagnosis | + + | Coronary artery disease involving [place] coronary artery of [place] heart without | | angina pectoris - Primary | + + documented in this encounter"
--- OUTSIDE RECORDS SUMMARY | ~2019-01-14 | XMS | Encounter Summary ---
Demographics + + + | Address | [address] | | | [place] [address] | + + + | Home Phone [...] [place] | | | | | [address] | | + + + + + Care Team Providers + +------+ + | Care Food Service Associate Name | Role | Phone [...] NEPHROLOGY [address] | MD [address] | | | | | [address] | [address] [place] | | | | | [place], [place] | [place] [address] | | | | | [address] | [phone] | | | | | [phone] | | | +--------+ + + + [...] | | | | | | [place] [address] | | | | | | [phone] | | | | | | | [...]
--- OUTSIDE RECORDS SUMMARY | ~2019-01-14 | XMS | Clinical Summary ---
Demographics + + + | Address | [address] [place] [address] [address] | | | [place] [address] | + + + | Home Phone | | + + + | Preferred Language | Unknown | + + + | Marital Status | | + + + | Sikhism Affiliation | NRP | + + + [...] | | | | | [place] [address] | | + + + + + Care Team Providers + +------+ + | Care Certified Ski Patroller Name | Role | Phone | + +------+ + | Chato Matson MD | PP | | + +------+ + Source Comments EULOGIO is fully live on both [facility] and [facility] InPatient.[facility] [...] resynchronization therapy | 10/17/2017 | | defibrillator (RECRUITER MANAGER-D) | | + + + | [...] edema. 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 | | -secretions improving, cough strong [...] stayExtubated 03/22, started on | | [place] [id number] infusion begun 03/22 for daily goal -1 [...] during cath | | lab procedure at [facility]. Was shocked 17 times | | [...] | | | INC | | | [id number] | | Tejal Pettit MD | | | | | | X / | | | | | | | | /[address] | | | | | | | | [address] | + +------+--------+ +--------+--------+--------+ Results Not on [...] | PPO | [phone] | [address] [address] [place] | | | CROSS | | | [address] | [place] [address] | | | FEDERA | | | | | | | L | | | | | + +--------+ +--------+ + + | MEDICAID [place] | OHP | [id number] | Medica | [phone] | [address] [address] | | | PLUS | | id | [phone] | [place] [address] | | | OPEN | | | [...] | Self [birth year] | Home: | [address] | | | al/Negro | | 1956 | [phone] | [address] [place] | | | taiwo | | | [phone] | [address] | + +--------+ +--------+ + +
--- OUTSIDE RECORDS SUMMARY | ~2019-01-14 | XMS | Encounter Summary ---
Demographics + + + | Address | [address] | | | [place] [address] | + + + | Home Phone [...] | [place] | | | | | [address] | | + + + + + Care Team Providers + +------+ + | Care Fixed Income Director Name | Role | Phone | [...] | | | involving | [address] | [place] | | | | | [place] | MARK[place] MCGUIRE | AMRKO Herrera | | | | | coronary | [address] | [address] | | | | | artery of | Phone: | Phone: | | | | | [place] heart | [phone] | [phone] | | | | | without | Fax: | Fax: | | | | | angina | [phone] | [phone] | | | | | pectoris | | | + + + + + + + Encounter Details +--------+---------+ + + + | Date | Type | Department | Care Team | Description | +--------+---------+ + + + | 11/30/ | Office | [facility] | Carolina Randy, | Coronary artery | | 2019 | Visit | MED CTR CARDIAC | MD [address] [place] | disease involving | | | | REHABILITATION [address] | [place], | [place] coronary | | | | [place] | [place] [address] | artery of [place] | | | | [place] [address] | [phone] | heart without angina | | | | [phone] | | pectoris (Primary | | | [...] note might be different from the orig [facility] CARDIAC REHABILITATION [address] [facility] [address] Cardiac Rehab Date: 11/30/2018 Patient Information Patient Name: Bob Will Date of : 1955 Age: 63 y.o. Encounter Diagnoses Code Name Primary? I25.10 Coronary artery disease involving [place] coronary artery of [place] heart without angina pectoris Yes Z98.61 Post [...] W | | | | | | [place], | | | | | | [place] [address] | | | | | | [phone] | | | | | | | | +--------+ + + + + documented as of this encounter Visit Diagnoses + + | Diagnosis | + + | Coronary artery disease involving [place] coronary artery of [place] heart without | | angina pectoris - Primary | + + | Post PTCA Postsurgical percutaneous transluminal coronary angioplasty status | + + documented in this encounter"
--- OUTSIDE RECORDS SUMMARY | ~2019-01-14 | XMS | Encounter Summary ---
Demographics + + + | Address | [address] | | | [place] [address] | + + + | Home Phone [...] | [place] | | | | | [address] | | + + + + + Care Team Providers + +------+ + | Care Batter Mixer Name | Role | Phone | + [...] | | involving | [address] | [place] | | | | | [place] | MARKO MCGUIRE | MARKO Herrera | | | | | coronary | [address] | [address] | | | | | artery of | Phone: | Phone: | | | | | [place] heart | [phone] | [phone] | | | | | without | Fax: | Fax: | | | | | angina | [phone] | [phone] | | | | | pectoris | | | + + + + + + + Encounter Details +--------+---------+ + + + | Date | Type | Department | Care Team | Description | +--------+---------+ + + + | 10/28/ | Office | [facility] | Randy Figueroa, | Coronary artery | | 2019 | Visit | MED CTR CARDIAC | MD [address] [place] | disease, angina | | | | REHABILITATION [address] | [place], | presence | | | | [place] | [place] [address] | unspecified, | | | | [place] [address] | [phone] | unspecified vessel | | | | [phone] | | or lesion type, | | | | | | unspecified whether | | | | | | [place] or | | | | | | [...] Esther Fields RN - 10/28/2018 1000 PST [facility] CARDIAC REHABILITATION [address] [facility] [address] Cardiac Rehab Date: 10/28/2018 Patient Information Patient Name: Bob Will Date of : 1955 Age: 62 y.o. Encounter Diagnoses Code Name Primary? I25.10 Coronary artery disease, angina presence unspecified, unspecified vessel or lesi on type, unspecified whether [place] or transplanted heart Yes Z98.61 Post PTCA [...] | | | | | | [place], | | | | | | [place] [address] | | | | | | [phone] | | | | | | | | +--------+ + + + + documented as of this encounter Visit Diagnoses + + | Diagnosis | + + | Coronary artery disease, angina presence unspecified, unspecified vessel or lesion | | type, unspecified whether [place] or transplanted heart - Primary | + + | Post PTCA Postsurgical percutaneous transluminal coronary angioplasty status | + + documented in this encounter"
--- OUTSIDE RECORDS SUMMARY | ~2019-01-14 | XMS | Encounter Summary ---
Demographics + + + | Address | [address] [place] [address] [address] | | | [place] [address] | + + + | Home Phone | | + + + | Preferred Language | Unknown | + + + | Marital Status | | + + + | Mandaeism Affiliation | Unknown | + + + | Race | Unknown | + + + | Ethnic Group | Unknown | + + + Author + + + | Author | [facility] [employer] | + + + | Organization | [facility] | + + + | Address | Unknown | + + + | Phone | Unavailable | + + + Support + + +---------+ + | Name | Relationship | Address | Phone | + + +---------+ + | Venice Mckeon | ECON | Unknown | | + + +---------+ + Care Team Providers + +------+ + | Care Director Teen Post Name | Role | Phone | + [...] HF chronicity, | | | | | [id number] | unspecified heart | | | | [...] RON MCKEON Date of : 1955 | [facility] | | Performing Physician: Rocio | RADIOLOGY | | Licosargents | | | | | | INDICATIONS [...] MV A Rohan: 0.86 m/s MV Dec Schleicher: 3.26 m/s2 | | | MV DecT: [...] | 21.47 mmHg TR Vmax: 2.31 m/s Curriculum Supervisor: ANJANA Authenticated | | | by: Rocio Pearl Report Date/Time: 11-04-2018 19:16:25 | | + + + + + | Procedure Note | + + | Sebastian, Rad Results In - 11/04/2018 7:20 PM PST Patient Name: Belkys MCKEON of | | : 5Accession: [id number] Physician: Rocio | | Alsamara INDICATIONS------ | [...] | 5.92 cmLVPWd: 1.01 cmLVOT Area: 3.17 fb1EJTV Diam: 2.01 cm%FS: 15.56 %EF(Teich): | | [...] mlLAESV Index (A-L): 42.88 ml/m2LAAs A2C: 24.92 vh0BNCPE A-L | | A2C: 95.08 mlLALs A2C: 5.54 cmLAAs A4C: 19.37 pk4PXJQH A-L A4C: 70.66 mlLALs | | A4C: 4.50 cmRAAs: 18.79 ag7ODIWN A-L: 67.38 mlRAESV MOD: 63.17 mlRALs: 4.44 | | cmTAPSE: 2.12 cmAV maxP.82 mmHgAV meanP.56 mmHgAV Vmax: 1.30 m/Emil | | Vmean: 0.88 m/Emil VTI: 25.33 cmAVA Vmax: 2.55 cm2AVA (VTI): 2.49 kg5ETLL (Vmax): | | 0.00 cm2/m2AVAI (VTI): 0.00 cm2/m2LVOT maxP.40 mmHgLVOT meanP.91 | | mmHgLVSI Dopp: 29.85 ml/m2LVSV Dopp: 63.29 mlLVOT Vmax: 1.04 m/sLVOT Vmean: 0.64 | | m/sLVOT VTI: 19.92 cmMV A Rohan: 0.86 m/sMV Dec Schleicher: 3.26 m/s2MV DecT: 218.32 | | msMV E Rohan: 0.71 m/sMV E/A Ratio: 0.82 MV PHT: 63.31 msMVA By PHT: 3.47 | | lw7Lpxrmx e': 0.04 m/sSeptal E/e': 15.51 Lateral e': 0.06 m/sLateral E/e': 10.91 | | RAP: 5 mmHgRVSP: 26.47 mmHgTR maxP.47 mmHgTR Vmax: 2.31 m/sSonographer: | | DBSAuthenticated by: Rocio AlssargentsraReport Date/Time: 11-04-2018 19:16:25IMPRESSION:1. | | This was [...] A Rohan: 0.86 m/s | |MV Dec Schleicher: 3.26 m/s2 | |MV DecT: 218.32 ms [...] |TR Vmax: 2.31 m/s | | | |Curriculum Supervisor: ANJANA | |Authenticated by: Rocio Licoeloy [...] | [address] | [place] [address] | | + + + + + in this encounter Visit Diagnoses + + | Diagnosis | + + | Congestive heart failure, unspecified HF chronicity, unspecified heart failure type | | (HCC) | + +"
--- OUTSIDE RECORDS SUMMARY | ~2019-01-14 | XMS | Encounter Summary ---
Demographics + + + | Address | [address] | | | [place] [address] | + + + | Home Phone [...] [place] | | | | | [address] | | + + + + + Care Team Providers + +------+ + | Care Regulatory Affairs Specialist Name | Role | Phone | + +------+ + | Young Haque DO | PCP | | + +------+ + Encounter Details +--------+ + + + + | Date | Type | Department | Care Team | Description | +--------+ + + + + | 03/19/ | Abstract | [facility] [place] | Jenny, | | | 2018 | | CARDIOLOGY [address] | Hansa SHIPPING POINT INSPECTOR [address] | | | | | [place], | [place], | | | | | [place] [address] | [place] [address] | | | | | [phone] | [phone] | | | | | | | [...] | | | | | | [place] [address] | | | | | | [phone] | | | | | | | [...]
--- OUTSIDE RECORDS SUMMARY | ~2019-01-14 | XMS | Encounter Summary ---
Demographics + + + | Address | [address] | | | [place] [address] | + + + | Home Phone [...] [place] | | | | | [address] | | + + + + + Care Team Providers + +------+ + | Care Field Laborer Name | Role | Phone | + +------+ + | Young Haque DO | PCP | | + +------+ + Encounter Details +--------+ + + + + | Date | Type | Department | Care Team | Description | +--------+ + + + + | 03/28/ | Abstract | [facility] [place] | Jenny, | | | 2019 | | CARDIOLOGY [address] | Hansa SPORTS DIRECTOR [address] | | | | | [place], | [place], | | | | | [place] [address] | [place] [address] | | | | | [phone] | [phone] | | | | | | | [...] | | | | | | [place] [address] | | | | | | [phone] | | | | | | | [...]
--- OUTSIDE RECORDS SUMMARY | ~2019-01-14 | XMS | Clinical Summary ---
Demographics + + + | Address | [address] | | | [place] [address] | + + + | Home Phone [...] [place] | | | | | [address] | | + + + + + Care Team Providers + +------+ + | Care Filter Tip Catcher Name | Role | Phone | [...] | | Activ | | (VITAMIN D-3) [id number] | a week. | | | | [...] | | nasal spray | nasal spray Paul[place] 2 | | | | | | [...] e | | spray | aerosol spray [place] | | | | | | | [...] | 11/12/2017 | + + + | INJECTION MOULDING MACHINE OPERATOR-D (AICD) Medtronic 10/16/17 EULOGIO Darby | 10/19/2017 | + + + + + | Overview: Formatting of this note might be different from the | | original. MODEL NAME MODEL# SERIAL# DATE IMPLANTED GENERATOR | | Medtronic [id number] 10/16/17 RV LEAD Medtronic [id number] | | [id number] 10/16/17 A LEAD Medtronic [id number] 10/16/17 | | Coronary Sinus LEAD Medtronic [id number] 10/16/17 | | Indication: ischemic cardiomyopathy with reduced EF 30-35% Last | | Assessment & Plan: Medtronic AICD Placed in 10/2017 at [facility]. | | A:-Patient ventricular paced 100% this morning. No arrhythmias on | | telemetry.P:-No acute therapy. Continue current therapy. | | | | Last Assessment & Plan: Medtronic AICD Placed in 10/2017 at [facility]. | | | |A: | [...] + + + | Overview: S/P Medtronic INJECTION MOULDING MACHINE OPERATOR-D 10-16-17 Dr Darby, [facility] Scan | | 10/13/17 shows [...] + + | Coronary artery disease involving [place] coronary artery of | 04/06/2017 | | wales heart without angina pectoris | | + [...] + + + | Acute anterior wall MN | 04/03/2017 | + + + + [...] involving | | | | | | [place] coronary | | | | | | artery of [place] | | | | | | heart without angina | | | | | | pectoris (Primary | | | | | | Dx); Post PTCA | +--------+ + + + + | 12/07/ | Office | | Randy Figueroa, | Coronary artery | | 2018 | Visit | | MD | disease involving | | | | | | [place] coronary | | | | | | artery of [place] | | | | | | heart [...] | | | | | (Primary Dx); INJECTION MOULDING MACHINE OPERATOR-D | | | | | | (AICD) Medtronic | | | | | | 10/16/17 [facility] Wilner; | | | | | | Ischemic | | | | | | cardiomyopathy | +--------+ + + + + | 12/02/ | Office | | Randy Figueroa, | Coronary artery | | 2018 | Visit | | MD | disease involving | | | | | | [place] coronary | | | | | | artery of [place] | | | | | | heart [...] involving | | | | | | w[place] coronary | | | | | | artery of [place] | | | | | | heart [...] involving | | | | | | w[place] coronary | | | | | | artery of [place] | | | | | | heart [...] involving | | | | | | w[place] coronary | | | | | | artery of [place] | | | | | | heart [...] involving | | | | | | w[place] coronary | | | | | | artery of [place] | | | | | | heart [...] | | | | | | [place] [address] | | | | | | [phone] | | | | | | | [...] Generi | Left: | TERUMO LORIN | [id number] | 12/05/ | [id number] | | [id number]: Qty: 1 | c | Groin | - TERU | [id number] | 2019 | / | | on 05/19/2018 by The, | | | | 20 | | /[id number] | | Khurram Isabel MD | | | | | | 371 | + +--------+--------+ +--------+--------+--------+ | Group Contract Analyst-D MedtronicImplanted: | Implan | | MEDTRONIC - [...] N/A: | ISAACS | | 12/29/ | [id number] | | Eluting Coronary Stent System | | [place] | DIAGNOSTICS | | 2020 | 0-18 / | | Implanted: Qty: 1 on | | ry | - DAINA | | | | | 03/15/2017 by Monse Ross, | | | | | | /[id number] | | MD | | | | | | 61 | + +--------+--------+ +--------+--------+--------+ | Xience Alpine Everolimus | Stent | N/A: | ISAACS | | 11/03/ | [id number] | | Eluting Coronary Stent System | | [place] | DIAGNOSTICS | | 2019 | 0-23 / | | Implanted: Qty: 1 on | | ry | - DAINA | | | | | 03/15/2017 by Monse Ross, | | | | | | /[id number] | | MD | | | | | | 41 | + +--------+--------+ +--------+--------+--------+ | Kit Perclose Proglide 6fr - | | Right: | SHITAL | [id number] | | [id number]- | | [id number]: Qty: 1 | | Alessiain | VASCULAR - | [id number] | | 03 / / | | on 05/19/2018 by Missael, | | | ABVA | 89 | | | | Khurram Isabel MD | | | | | | | + +--------+--------+ +--------+--------+--------+ | Kit Perclose Proglide 6fr - | | Right: | ISAACS | [id number] | | 14521- | | [id number]: Qty: 1 | | Alessiain | VASCULAR - | [id number] | | 03 / | | on [...] | e | 23:59 PDT | Interrogation INJECTION MOULDING MACHINE OPERATOR-D | procedure are in the | | REMOTE | | | ([facility]) Medtronic | results section. | | | | | 10/16/17 [facility] Wilner | | | | [...] scanned into | | | [facility] for remote interrogation results. Data collected by [...] | [employer] | MODA | [id number] | | [phone] | | Medica | | MEDICAID HMO | HEALTH | | 018-Pr | 1 | | id | | | MDCD | | esent | | | | | | HMO OR | | | | | | + +--------+ +--------+ +---------+--------+ | [employer]ETERANS ADMIN | VETERA | [id number] | 07/24/ | | | Indemn | | | NS | | 2016-P | | | ity | | | ADMIN | | resent | | | | | | [place] | | | | | | | | [place] | | | | | | + +--------+ +--------+ +---------+--------+ | [employer] ADMIN | VETERA | [id number] | 07/24/ | | | Indemn | [...] taiwo | | | 8 (Home) | [address] | + +--------+ +--------+ + + Advance Directives Patient has advance care planning documents, and code status on file. For more information, please contact:[facility] [place] [address] + + + + + | Code [...]
--- OUTSIDE RECORDS SUMMARY | ~2019-01-14 | XMS | Encounter Summary ---
Demographics + + + | Address | [address] | | | [place] [address] | + + + | Home Phone [...] | [place] | | | | | [address] | | + + + + + Care Team Providers + +------+ + | Care Rubber Ball Finisher Name | Role | Phone | [...] | | | involving | [address] [place] | | | | | [place] | [place] | [place] | | | | | coronary | [address] | [address] | | | | | artery of | Phone: | Phone: | | | | | [place] heart | [phone] | [phone] | | | | | without | Fax: | Fax: | | | | | angina | [phone] | [phone] | | | | | pectoris | | | + + + + + + + Encounter Details +--------+---------+ + + + | Date | Type | Department | Care Team | Description | +--------+---------+ + + + | 12/07/ | Office | [facility] | Randy Figueroa, | Coronary artery | | 2019 | Visit | MED CTR CARDIAC | MD [address] | disease involving | | | | REHABILITATION [address] | [place], | [place] coronary | | | | [address] [place] | [place] [address] | artery of [place] | | | | [place] [address] | [phone] | heart without angina | | | | [phone] | | pectoris (Primary | | | [...] note might be different from the orig [facility] CARDIAC REHABILITATION [address] [facility] [address] Cardiac Rehab Date: 12/07/2018 Patient Information Patient Name: Bob Will Date of : 1955 Age: 63 y.o. Encounter Diagnoses Code Name Primary? I25.10 Coronary artery disease involving [place] coronary artery of [place] heart without angina pectoris Yes Z98.61 Post [...] W | | | | | | [place], | | | | | | [place] [address] | | | | | | [phone] | | | | | | | | +--------+ + + + + documented as of this encounter Visit Diagnoses + + | Diagnosis | + + | Coronary artery disease involving [place] coronary artery of [place] heart without | | angina pectoris - Primary | + + | Post PTCA Postsurgical percutaneous transluminal coronary angioplasty status | + + documented in this encounter"
--- OUTSIDE RECORDS SUMMARY | ~2019-01-14 | XMS | Encounter Summary ---
Demographics + + + | Address | [address] | | | [place] [address] | + + + | Home Phone [...] | [place] | | | | | [address] | | + + + + + Care Team Providers + +------+ + | Care Steam Cleaning Machine Operator Name | Role | [...] | | | involving | [address] | [place] | | | | | [place] | [place], [place] | [place], [place] | | | | | coronary | [address] | [address] | | | | | artery of | Phone: | Phone: | | | | | [place] heart | [phone] | [phone] | | | | | without | Fax: | Fax: | | | | | angina | [phone] | [phone] | | | | | pectoris | | | + + + + + + + Encounter Details +--------+---------+ + + + | Date | Type | Department | Care Team | Description | +--------+---------+ + + + | 10/21/ | Office | [facility] | Randy Figueroa, | Coronary artery | | 2019 | Visit | MED CTR CARDIAC | MD [address] | disease, angina | | | | REHABILITATION [address] | [place], | presence | | | | [address] [place] | [place] [address] | unspecified, | | | | [place] [address] | [phone] | unspecified vessel | | | | [phone] | | or lesion type, | | [...] of this encounter Progress Notes Ana Thomas, PRODUCT ASSEMBLER - 10/21/2018 1000 PSTFormatting of this note might be different fro m the original. [facility] CARDIAC REHABILITATION [address] [facility] [address] Cardiac Rehab Date: 10/21/2018 Patient Information Patient Name: Bob Will Date of : 1955 Age: 62 y.o. Encounter Diagnoses Code Name Primary? I25.10 Coronary artery disease, angina presence unspecified, unspecified vessel or lesi on type, unspecified whether [place] or transplanted heart Yes Number of Visits [...] which is much higher than Ashok's norm. digital manager was placed. No significant change noted from [...] had came directly to rehab from the [place] [facility] where changes in medication was made. Ashok states they stopped his Entresto and increased Lasix to two tabs daily. also notified to [facility] Ashok. Any abnormal vital signs [...] | | | | | | [place] [address] | | | | | | [phone] | | | | | | | | +--------+ + + + + documented as of this encounter Visit Diagnoses + + | Diagnosis | + + | Coronary artery disease, angina presence unspecified, unspecified vessel or lesion | | type, unspecified whether [place] or transplanted heart - Primary | + + documented in this encounter"
--- OUTSIDE RECORDS SUMMARY | ~2019-01-14 | XMS | Encounter Summary ---
Demographics + + + | Address | [address] | | | [place] [address] | + + + | Home Phone [...] [place] | | | | | [address] | | + + + + + Care Team Providers + +------+ + | Care Zone Manager Name | Role | Phone | [...] | 12/06/ | Refill | [facility] | Jenny, | Medication Refill | | 2018 | | CARDIOLOGY [address] | ADARSH Santo [address] | | | | | [place], | [place], | | | | | [place] [address] | [place] [address] | | | | | [phone] | [phone] | | | | | | | [...] | | | | | | [place] [address] | | | | | | [phone] | | | | | | | | +--------+ + + + + documented as of this encounter Visit Diagnoses Not on filedocumented in this encounter"
--- OUTSIDE RECORDS SUMMARY | ~2019-01-14 | XMS | Encounter Summary ---
Demographics + + + | Address | [address] [place] [address] [address] | | | [place] [address] | + + + | Home Phone | | + + + | Preferred Language | Unknown | + + + | Marital Status | | + + + | Islam Affiliation | Unknown | + + + | Race | Unknown | + + + | Ethnic Group | Unknown | + + + Author + + + | Author | [facility] [employer] | + + + | Organization | [facility] | + + + | Address | Unknown | + + + | Phone | Unavailable | + + + Support + + +---------+ + | Name | Relationship | Address | Phone | + + +---------+ + | Venice Mckeon | ECON | Unknown | | + + +---------+ + Care Team Providers + +------+ + | Care Metallographer Name | Role | Phone | + [...] HF chronicity, | | | | | [address] | unspecified heart | | | | [...] MCKEON Date of : 1955 | [facility] | | Performing Physician: Rocio | RADIOLOGY | | Licom[place] | | | | | | INDICATIONS [...] MV A Rohan: 0.86 m/s MV Dec Lincoln: 3.26 m/s2 | | | MV DecT: [...] | 21.47 mmHg TR Vmax: 2.31 m/s Library Consultant: ANJANA Authenticated | | | by: Rocio Pearl Report Date/Time: 11-04-2018 19:16:25 | | + + + + + | Procedure Note | + + | Sebastian, Rad Results In - 11/04/2018 7:20 PM PST Patient Name: Belkys MCKEON of | | : 5Accession: [id number] Physician: Rocio | | Alsamara INDICATIONS------ | [...] | 5.92 cmLVPWd: 1.01 cmLVOT Area: 3.17 po1IWVM Diam: 2.01 cm%FS: 15.56 %EF(Teich): | | [...] mlLAESV Index (A-L): 42.88 ml/m2LAAs A2C: 24.92 ml1KEYBK A-L | | A2C: 95.08 mlLALs A2C: 5.54 cmLAAs A4C: 19.37 vh3PALAO A-L A4C: 70.66 mlLALs | | A4C: 4.50 cmRAAs: 18.79 nh2ZMVBC A-L: 67.38 mlRAESV MOD: 63.17 mlRALs: 4.44 | | cmTAPSE: 2.12 cmAV maxP.82 mmHgAV meanP.56 mmHgAV Vmax: 1.30 m/Emil | | Vmean: 0.88 m/Emil VTI: 25.33 cmAVA Vmax: 2.55 cm2AVA (VTI): 2.49 eh5OTNC (Vmax): | | 0.00 cm2/m2AVAI (VTI): 0.00 cm2/m2LVOT maxP.40 mmHgLVOT meanP.91 | | mmHgLVSI Dopp: 29.85 ml/m2LVSV Dopp: 63.29 mlLVOT Vmax: 1.04 m/sLVOT Vmean: 0.64 | | m/sLVOT VTI: 19.92 cmMV A Rohan: 0.86 m/sMV Dec Lincoln: 3.26 m/s2MV DecT: 218.32 | | msMV E Rohan: 0.71 m/sMV E/A Ratio: 0.82 MV PHT: 63.31 msMVA By PHT: 3.47 | | gn6Ibxwli e': 0.04 m/sSeptal E/e': 15.51 Lateral e': 0.06 m/sLateral E/e': 10.91 | | RAP: 5 mmHgRVSP: 26.47 mmHgTR maxP.47 mmHgTR Vmax: 2.31 m/sSonographer: | | DBSAuthenticated by: Rocio AlsmillerraReport Date/Time: 11-04-2018 19:16:25IMPRESSION:1. | | This was [...] A Rohan: 0.86 m/s | |MV Dec Lincoln: 3.26 m/s2 | |MV DecT: 218.32 ms [...] |TR Vmax: 2.31 m/s | | | |Library Consultant: ANJANA | |Authenticated by: Rocio Licoeloy | [...] | [address] | [place] [address] | | + + + + + in this encounter Visit Diagnoses + + | Diagnosis | + + | Congestive heart failure, unspecified HF chronicity, unspecified heart failure type | | (HCC) | + +"
--- OUTSIDE RECORDS SUMMARY | ~2019-01-14 | XMS | Encounter Summary ---
Demographics + + + | Address | [address] | | | [place] [address] | + + + | Home Phone [...] [place] | | | | | [address] | | + + + + + Care Team Providers + +------+ + | Care Makeup Artist Name | Role | Phone | [...] NEPHROLOGY [address] | MD [address] | | | | | [address] | [address] [place] | | | | | [place], [place] | [place] [address] | | | | | [address] | [phone] | | | | | [phone] | | | +--------+ + + + [...] | | | | | | [place] [address] | | | | | | [phone] | | | | | | | [...]
--- OUTSIDE RECORDS SUMMARY | ~2019-01-14 | XMS | Encounter Summary ---
Demographics + + + | Address | [address] | | | [place] [address] | + + + | Home Phone [...] [place] | | | | | [address] | | + + + + + Care Team Providers + +------+ + | Care Medical Records Auditor Name | Role | Phone | + [...] + + | 11/18/ | Telephone | [facility] | Jenny, | Blood Pressure | | 2019 | | CARDIOLOGY [address] | [place], BEAUTY PARLOR CLEANER [address] | | | | | [place], | [place], | | | | | [place] [address] | [place] [address] | | | | | [phone] | | | | | | | [...] | | | | | | [place] [address] | | | | | | [phone] | | | | | | | | +--------+ + + + + documented as of this encounter Visit Diagnoses Not on filedocumented in this encounter"
--- OUTSIDE RECORDS SUMMARY | ~2019-01-14 | XMS | Encounter Summary ---
Demographics + + + | Address | [address] | | | [place] [address] | + + + | Home Phone [...] | [place] | | | | | [address] | | + + + + + Care Team Providers + +------+ + | Care Corrosion Technician Name | Role | Phone | [...] [place] | | | | | [place] | MARK[place] MCGUIRE | [place] | | | | | coronary | [address] | [address] | | | | | artery of | Phone: | Phone: | | | | | [place] heart | [phone] | [phone] | | | | | without | Fax: | Fax: | | | | | angina | [phone] | [phone] | | | | | pectoris | | | + + + + + + + Encounter Details +--------+---------+ + + + | Date | Type | Department | Care Team | Description | +--------+---------+ + + + | 11/25/ | Office | [facility] | Carolina Randy, | Coronary artery | | 2019 | Visit | MED CTR CARDIAC | MD [address] | disease involving | | | | REHABILITATION [address] | [address] [place], | [place] coronary | | | | [address] [place] | [place] [address] | artery of [place] | | | | [place] [address] | [phone] | heart without angina | | | | [phone] | | pectoris (Primary | | | [...] this encounter Progress Jonah Coker-Cheri Kendrick, SENIOR TECHNICAL RECRUITER - 11/25/2018 1000 PDTFormatting of this note might be diff erent from the original. [facility] CARDIAC REHABILITATION [address] [facility] [address] Cardiac Rehab Date: 11/25/2018 Patient Information Patient [...] W | | | | | | [place], | | | | | | [place] [address] | | | | | | [phone] | | | | | | | | +--------+ + + + + documented as of this encounter Visit Diagnoses + + | Diagnosis | + + | Coronary artery disease involving [place] coronary artery of [place] heart without | | angina pectoris - Primary | + + | Post PTCA Postsurgical percutaneous transluminal coronary angioplasty status | + + documented in this encounter"
--- OUTSIDE RECORDS SUMMARY | ~2019-01-14 | XMS | Encounter Summary ---
Demographics + + + | Address | [address] | | | [place] [address] | + + + | Home Phone [...] | [place] | | | | | [address] | | + + + + + Care Team Providers + +------+ + | Care Mechanic Field Service Name | Role | Phone | [...] Required | n | artery | ADARSH Jcaobs | Rehabilitatio | | | | | disease | [address] | [address] | | | | | involving | [address] | [place] | | | | | [place] | MARKO MCGUIRE | [place] | | | | | coronary | [address] | [address] | | | | | artery of | Phone: | Phone: | | | | | [place] heart | [phone] | [phone] | | | | | without | Fax: | Fax: | | | | | angina | [phone] | [phone] | | | | | pectoris | | | + + + + + + + Encounter Details +--------+---------+ + + + | Date | Type | Department | Care Team | Description | +--------+---------+ + + + | 12/02/ | Office | [facility] | Randy Figueroa, | Coronary artery | | 2019 | Visit | MED CTR CARDIAC | MD [address] | disease involving | | | | REHABILITATION [address] | [place], | [place] coronary | | | | [address] [place] | [place] [address] | artery of [place] | | | | [place] [address] | [phone] | heart without angina | | | | [phone] | | pectoris (Primary | | | [...] note might be different from the orig [facility] [address] [facility] [address] Cardiac Rehab Date: 12/02/2018 Patient Information Patient Name: Bob Will Date of : 1955 Age: 63 y.o. Encounter Diagnoses Code Name Primary? I25.10 Coronary artery disease involving chinik coronary artery of chinik heart without angina pectoris Yes Z98.61 Post [...] | | | | | | [place], | | | | | | [place] [address] | | | | | | [phone] | | | | | | | | +--------+ + + + + documented as of this encounter Visit Diagnoses + + | Diagnosis | + + | Coronary artery disease involving chinik coronary artery of chinik heart without | | angina pectoris - Primary | + + | Post PTCA Postsurgical percutaneous transluminal coronary angioplasty status | + + documented in this encounter"
--- OUTSIDE RECORDS SUMMARY | ~2019-01-14 | XMS | Encounter Summary ---
Demographics + + + | Address | [address] | | | [place] [address] | + + + | Home Phone [...] [place] | | | | | [address] | | + + + + + Care Team Providers + +------+ + | Care Compliance Attorney Name | Role | Phone | [...] | Telephone | [facility] [place] | [place], | Medication Related | | 2018 | | CARDIOLOGY [address] | ADARSH Santo [address] | | | | | [place], | [place], | | | | | [place] [address] | [place] [address] | | | | | [phone] | [phone] | | | | | | | [...] W | | | | | | [place], | | | | | | [place] [address] | | | | | | [phone] | | | | | | | [...] | starting 11/30/2018 | | | | [place] coronary | until 12/01/2019 | | | | artery of [place] | | | | | heart without angina | | | | | pectoris | | + +--------+ + + documented as of this encounter Visit Diagnoses + + | Diagnosis | + + | Coronary artery disease involving [place] coronary artery of [place] heart without | | angina pectoris - Primary | + + documented in this encounter"
--- OUTSIDE RECORDS SUMMARY | ~2019-01-14 | XMS | Encounter Summary ---
Demographics + + + | Address | [address] | | | [place] [address] | + + + | Home Phone [...] [place] | | | | | [address] | | + + + + + Care Team Providers + +------+ + | Care General Farm Manager Name | Role | Phone | [...] + | 10/27/ | Telephone | [facility] | Jenny, | Other (medication | | 2018 | | CARDIOLOGY [address] | ADARSH [address] | issue) | | | | [place], | [place], | | | | | [place] [address] | [place] [address] | | | | | [phone] | | | | | | | [...] W | | | | | | [place], | | | | | | [place] [address] | | | | | | [phone] | | | | | | | [...]
--- OUTSIDE RECORDS SUMMARY | ~2019-01-14 | XMS | Encounter Summary ---
Demographics + + + | Address | [address] | | | [place] [address] | + + + | Home Phone [...] [place] | | | | | [address] | | + + + + + Care Team Providers + +------+ + | Care Elevator Supervisor Name | Role | Phone | + +------+ + | Young Haque DO | PCP | | + +------+ + Encounter Details +--------+ + + + + | Date | Type | Department | Care Team | Description | +--------+ + + + + | 03/28/ | Abstract | [facility] [place] | Jenny, | | | 2019 | | CARDIOLOGY [address] | Hansa CURATOR [employer] [address] | | | | | [place], | [place], | | | | | [place] [address] | [place] [address] | | | | | [phone] | | | | | | | [...] | | | | | | [place] [address] | | | | | | [phone] | | | | | | | [...]
--- OUTSIDE RECORDS SUMMARY | ~2019-01-14 | XMS | Clinical Summary ---
Demographics + + + | Address | [address] | | | [place] [address] | + + + | Home Phone [...] [place] | | | | | [address] | | + + + + + Care Team Providers + +------+ + | Care Check Totaler Name | Role | Phone | + [...] | | Activ | | (VITAMIN D-3) [id number] | a week. | | | | [...] | | nasal spray | nasal spray [place] 2 | | | | | | [...] e | | spray | aerosol spray [place] | | | | | | | [...] | 11/12/2017 | + + + | DRAGLINE OPERATOR-D (AICD) Medtronic 10/16/17 EULOGIO Darby | 10/19/2017 | + + + + + | Overview: Formatting of this note might be different from the | | original. MODEL NAME MODEL# SERIAL# DATE IMPLANTED GENERATOR | | Medtronic [id number] 10/16/17 RV LEAD Medtronic [id number] | | [id number] 10/16/17 A LEAD Medtronic [id number] 10/16/17 | | Coronary Sinus LEAD Medtronic [id number] 10/16/17 | | Indication: ischemic cardiomyopathy with reduced EF 30-35% Last | | Assessment & Plan: Medtronic AICD Placed in 10/[address] [facility]. | | A:-Patient ventricular paced 100% this morning. No arrhythmias on | | telemetry.P:-No acute therapy. Continue current therapy. | | | | Last Assessment & Plan: Medtronic AICD Placed in 10/[address] [facility]. | | | |A: | |-Patient ventricular [...] + + + | Overview: S/P Medtronic DRAGLINE OPERATOR-D 10-16-17 Dr Darby, [facility] [...] + + | Coronary artery disease involving [place] coronary artery of | 04/06/2017 | | [place] heart without angina pectoris | | + [...] + + + | Acute anterior wall TX | 04/03/2017 | + + + + [...] involving | | | | | | [place] coronary | | | | | | artery of [place] | | | | | | heart without angina | | | | | | pectoris (Primary | | | | | | Dx); Post PTCA | +--------+ + + + + | 12/07/ | Office | | Randy Figueroa, | Coronary artery | | 2018 | Visit | | MD | disease involving | | | | | | [place] coronary | | | | | | artery of [place] | | | | | | heart [...] | | | | | (Primary Dx); DRAGLINE OPERATOR-D | | | | | | (AICD) Medtronic | | | | | | 10/16/[address] [facility] Wilner; | | | | | | Ischemic | | | | | | cardiomyopathy | +--------+ + + + + | 12/02/ | Office | | Randy Figueroa, | Coronary artery | | 2018 | Visit | | MD | disease involving | | | | | | [place] coronary | | | | | | artery of [place] | | | | | | heart [...] involving | | | | | | [place] coronary | | | | | | artery of [place] | | | | | | heart [...] involving | | | | | | [place] coronary | | | | | | artery of [place] | | | | | | heart [...] involving | | | | | | [place] coronary | | | | | | artery of [place] | | | | | | heart [...] involving | | | | | | [place] coronary | | | | | | artery of [place] | | | | | | heart [...] whether | | | | | | [place] or | | | | | | [...] whether | | | | | | [place] or | | | | | | [...] | | | | | | [place] [address] | | | | | | [phone] | | | | | | | [...] Generi | Left: | TERUMO LORIN | [id number] | 12/05/ | [id number] | | [id number]: Qty: 1 | c | Groin | - TERU | [id number] | 2019 | / | | on 05/19/2018 by The, | | | | 20 | | /[id number] | | Khurram Isabel MD | | | | | | 371 | + +--------+--------+ +--------+--------+--------+ | [place] Decorator-D MedtronicImplanted: | Implan | | MEDTRONIC - [...] N/A: | ISAACS | | 12/29/ | [id number] | | Eluting Coronary Stent System | | [place] | DIAGNOSTICS | | 2020 | 0-18 / | | Implanted: Qty: 1 on | | ry | - DAINA | | | | | 03/15/2017 by Monse Ross, | | | | | | /[id number] | | MD | | | | | | 61 | + +--------+--------+ +--------+--------+--------+ | Xience Alpine Everolimus | Stent | N/A: | ISAACS | | 11/03/ | [id number] | | Eluting Coronary Stent System | | [place] | DIAGNOSTICS | | 2019 | 0-23 / | | Implanted: Qty: 1 on | | ry | - DAINA | | | | | 03/15/2017 by Monse Ross, | | | | | | /[id number] | | MD | | | | | | 41 | + +--------+--------+ +--------+--------+--------+ | Kit Perclose Proglide 6fr - | | Right: | SHITAL | [id number] | | 60610- | | [id number]: Qty: 1 | | Alessiain | VASCULAR - | [id number] | | 03 / / | | on 05/19/2018 by Missael, | | | ABVA | 89 | | | | Khurram Isabel MD | | | | | | | + +--------+--------+ +--------+--------+--------+ | Kit Perclose Proglide 6fr - | | Right: | ISAACS | [id number] | | 76543- | | [id number]: Qty: 1 | | Alessiain | VASCULAR - | [id number] | | 03 / | | on [...] | e | 23:59 PDT | Interrogation DRAGLINE OPERATOR-D | procedure are in the | | REMOTE | | | ([facility]) Medtronic | results section. | | | | | 10/16/[address] [facility] Wilner | | | | | | [...] remote PDF scanned into | | | [facility] for remote interrogation results. Data [...] | [employer] | MODA | [id number] | | [phone] | | Medica | | MEDICAID HMO | HEALTH | | 018-Pr | 1 | | id | | | MDCD | | esent | | | | | | HMO [place] | | | | | | + +--------+ +--------+ +---------+--------+ | [employer]ERANS ADMIN | VETERA | [id number] | 07/24/ | | | Indemn | | | NS | | 2016-P | | | ity | | | ADMIN | | resent | | | | | | [place] | | | | | | | [place] | | | | | | + +--------+ +--------+ +---------+--------+ | [employer] ADMIN | VETERA | [id number] | 07/24/ | | | Indemn | [...] taiwo | | | 8 (Home) | [address] | + +--------+ +--------+ + + Advance Directives Patient has advance care planning documents, and code status on file. For more information, please contact:[facility] and [facility] [place] [address] + + + + + | Code [...]
--- OUTSIDE RECORDS SUMMARY | ~2019-01-14 | XMS | Encounter Summary ---
Demographics + + + | Address | [address] | | | [place] [address] | + + + | Home Phone [...] | [place] | | | | | [address] | | + + + + + Care Team Providers + +------+ + | Care Manager Sql Name | Role | Phone | + [...] | | | involving | [address] | [place] | | | | | [place] | [place] | [place] | | | | | coronary | [address] | [address] | | | | | artery of | Phone: | Phone: | | | | | [place] heart | [phone] | [phone] | | | | | without | Fax: | Fax: | | | | | angina | [phone] | [phone] | | | | | pectoris | | | + + + + + + + Encounter Details +--------+---------+ + + + | Date | Type | Department | Care Team | Description | +--------+---------+ + + + | 11/25/ | Office | [facility] | Carolina Randy, | Coronary artery | | 2019 | Visit | [facility] CTR CARD[facility]AC | MD [address] | disease involving | | | | REHABILITATION [address] [place], | [place] coronary | | | | [place] | [place] [address] | artery of [place] | | | | [place] [address] | [phone] | heart without angina | | | | [phone] | | pectoris (Primary | | | [...] encounter Progress Jonah Coker-Cheri Kendrick, SOFTWARE ENGINEER WEB APPLICATIONS - 11/25/2018 1000 PDTFormatting of this note might be diff erent from the original. [facility] CARDIAC REHABILITATION [address] [facility] [address] Cardiac Rehab Date: 11/25/2018 Patient Information Patient [...] W | | | | | | [place], | | | | | | [place] [address] | | | | | | [phone] | | | | | | | | +--------+ + + + + documented as of this encounter Visit Diagnoses + + | Diagnosis | + + | Coronary artery disease involving am[place] coronary artery of [place] heart without | | angina pectoris - Primary | + + | Post PTCA Postsurgical percutaneous transluminal coronary angioplasty status | + + documented in this encounter"
--- OUTSIDE RECORDS SUMMARY | ~2019-01-14 | XMS | Encounter Summary ---
Demographics + + + | Address | [address] | | | [place] [address] | + + + | Home Phone [...] [place] | | | | | [address] | | + + + + + Care Team Providers + +------+ + | Care Egg Sorter Name | Role | Phone | + +------+ + | Young Haque DO | PCP | | + +------+ + Encounter Details +--------+ + + + + | Date | Type | Department | Care Team | Description | +--------+ + + + + | 03/19/ | Abstract | [facility] [place] | Jenny, | | | 2018 | | CARDIOLOGY [address] | Hansa VAULT ATTENDANT [address] | | | | | [place], | [place], | | | | | [place] [address] | [place] [address] | | | | | [phone] | [phone] | | | | | | | [...] | | | | | | [place] [address] | | | | | | [phone] | | | | | | | [...]
--- OUTSIDE RECORDS SUMMARY | ~2019-01-14 | XMS | Encounter Summary ---
Demographics + + + | Address | [address] | | | [place] [address] | + + + | Home Phone [...] [place] | | | | | [address] | | + + + + + Care Team Providers + +------+ + | Care Rose Grading Supervisor Name | Role | Phone | [...] | 12/06/ | Refill | [facility] [place] | Jenny, | Medication Refill | | 2018 | | CARDIOLOGY [address] | ADARSH Santo [address] | | | | | [place], | [place], | | | | | [place] [address] | [place] [address] | | | | | [phone] | [phone] | | | | | | | [...] | | | | | | [place] [address] | | | | | | [phone] | | | | | | | | +--------+ + + + + documented as of this encounter Visit Diagnoses Not on filedocumented in this encounter"
--- OUTSIDE RECORDS SUMMARY | ~2019-01-14 | XMS | Clinical Summary ---
Demographics + + + | Address | [address] [place] [address] [address] | | | [place] [address] | + + + | Home Phone | | + + + | Preferred Language | Unknown | + + + | Marital Status | | + + + | Shinto Affiliation | Unknown | + + + | Race | Unknown | + + + | Ethnic Group | Unknown | + + + Author + + + | Author | Cassandra Olacabs | + + + | Organization | [facility] [employer] | + + + | Address | Unknown | + + + | Phone | Unavailable | + + + Support + + +---------+ + | Name | Relationship | Address | Phone | + + +---------+ + | Venice Mckeon | ECON | Unknown | | + + +---------+ + Care Team Providers + +------+ + | Care Customer Service Supervisor Name | Role | Phone [...] RON MCKEON Date of : 1955 | [facility] | | Performing Physician: Rocio | RADIOLOGY | | [facility] | | | | | [...] MV A Rohan: 0.86 m/s MV Dec Long: 3.26 m/s2 | | | MV DecT: [...] | 21.47 mmHg TR Vmax: 2.31 m/s Glass Robot Operator: DBS Authenticated | | | by: Rocio Barfieldmaiden rock Report Date/Time: 11-04-2018 19:16:25 | | + + + + + | Procedure Note | + + | Sebastian, Rad Results In - 11/04/2018 7:20 PM PST Patient Name: Belkys MCKEON of | | : 5Accession: [id number] Physician: Rocio | | Alsamara INDICATIONS------ | [...] | 5.92 cmLVPWd: 1.01 cmLVOT Area: 3.17 tq2SPUJ Diam: 2.01 cm%FS: 15.56 %EF(Teich): | | [...] mlLAESV Index (A-L): 42.88 ml/m2LAAs A2C: 24.92 [id number] A-L | | A2C: 95.08 mlLALs A2C: 5.54 cmLAAs A4C: 19.37 wc1MBPFG A-L A4C: 70.66 mlLALs | | A4C: 4.50 cmRAAs: 18.79 oj8MMABP A-L: 67.38 mlRAESV MOD: 63.17 mlRALs: 4.44 | | cmTAPSE: 2.12 cmAV maxP.82 mmHgAV meanP.56 mmHgAV Vmax: 1.30 m/Emil | | Vmean: 0.88 m/Emil VTI: 25.33 cmAVA Vmax: 2.55 cm2AVA (VTI): 2.49 hq4UMDD (Vmax): | | 0.00 cm2/m2AVAI (VTI): 0.00 cm2/m2LVOT maxP.40 mmHgLVOT meanP.91 | | mmHgLVSI Dopp: 29.85 ml/m2LVSV Dopp: 63.29 mlLVOT Vmax: 1.04 m/sLVOT Vmean: 0.64 | | m/sLVOT VTI: 19.92 cmMV A Rohan: 0.86 m/sMV Dec Long: 3.26 m/s2MV DecT: 218.32 | | msMV E Rohan: 0.71 m/sMV E/A Ratio: 0.82 MV PHT: 63.31 msMVA By PHT: 3.47 | | vr5Wpoxrj e': 0.04 m/sSeptal E/e': 15.51 Lateral e': 0.06 m/sLateral E/e': 10.91 | | RAP: 5 mmHgRVSP: 26.47 mmHgTR maxP.47 mmHgTR Vmax: 2.31 m/sSonographer: | | DBSAuthenticated by: Elinagwendolyn [facility] Date/Time: 11-04-2018 19:16:25IMPRESSION:1. | | This [...] A Rohan: 0.86 m/s | |MV Dec Long: 3.26 m/s2 | |MV DecT: 218.32 ms [...] |TR Vmax: 2.31 m/s | | | |Glass Robot Operator: DBS | |Authenticated by: Rocio Pearl [...] | [address] | [place] [address] | | + + + + + [...] +------+-------+ + | MEDICAID | [place] | [id number] | | | [address] | | | [place] | | | | [place] | | | [place] | | | | [address] | | | SENIOR LOSS CONTROL SPECIALIST | | | | | + +--------+ [...] | Self | [birth year] | Home: | [facility] [address] | | | al/Fam | | 1956 | [phone] [address] [place], | | | [place] | | | [address] | [place] [address] | + +--------+ +--------+ + +
--- OUTSIDE RECORDS SUMMARY | ~2019-01-14 | XMS | Encounter Summary ---
Demographics + + + | Address | [address] | | | [place] [address] | + + + | Home Phone [...] | [place] | | | | | [address] | | + + + + + Care Team Providers + +------+ + | Care Handhole Machine Operator Name | Role | Phone [...] | | | involving | [address] | [place] | | | | | [place] | [place] | [place] | | | | | coronary | [address] | [address] | | | | | artery of | Phone: | Phone: | | | | | [place] heart | [phone] | [phone] | | | | | without | Fax: | Fax: | | | | | angina | [phone] | [phone] | | | | | pectoris | | | + + + + + + + Encounter Details +--------+---------+ + + + | Date | Type | Department | Care Team | Description | +--------+---------+ + + + | 10/28/ | Office | [facility] | Randy Figueroa, | Coronary artery | | 2019 | Visit | MED CTR CARDIAC | MD [address] | disease, angina | | | | REHABILITATION [address] | [place], | presence | | | | [place] | [place] [address] | unspecified, | | | | [place] [address] | [phone] | unspecified vessel | | | | [phone] | | or lesion type, | | | | | | unspecified whether | | | | | | [place] or | | | | | | [...] Esther Fields RN - 10/28/2018 1000 PST [facility] CARDIAC REHABILITATION [address] [facility] [address] Cardiac Rehab Date: 10/28/2018 Patient Information Patient Name: Bob Will Date of : 1955 Age: 62 y.o. Encounter Diagnoses Code Name Primary? I25.10 Coronary artery disease, angina presence unspecified, unspecified vessel or lesi on type, unspecified whether [place] or transplanted heart Yes Z98.61 Post PTCA [...] W | | | | | | [place], | | | | | | [place] [address] | | | | | | [phone] | | | | | | | | +--------+ + + + + documented as of this encounter Visit Diagnoses + + | Diagnosis | + + | Coronary artery disease, angina presence unspecified, unspecified vessel or lesion | | type, unspecified whether [place] or transplanted heart - Primary | + + | Post PTCA Postsurgical percutaneous transluminal coronary angioplasty status | + + documented in this encounter"
--- OUTSIDE RECORDS SUMMARY | ~2019-01-14 | XMS | Encounter Summary ---
Demographics + + + | Address | [address] | | | [place] [address] | + + + | Home Phone [...] [place] | | | | | [address] | | + + + + + Care Team Providers + +------+ + | Care Home Service Director Name | Role | Phone | [...] | | | involving | [address] | [place] | | | | | [place] | [place] | [place] | | | | | coronary | [address] | [address] | | | | | artery of | Phone: | Phone: | | | | | [place] heart | [phone] | [phone] | | | | | without | Fax: | Fax: | | | | | angina | [phone] | [phone] | | | | | pectoris | | | + + + + + + + Encounter Details +--------+---------+ + + + | Date | Type | Department | Care Team | Description | +--------+---------+ + + + | 12/09/ | Office | [facility] | Randy Figueroa, | Coronary artery | | 2019 | Visit | MED CTR CARDIAC | MD [address] | disease involving | | | | REHABILITATION [address] | [place], | [place] coronary | | | | [place] | [place] [address] | artery of [place] | | | | [place] [address] | [phone] | heart without angina | | | | [phone] | | pectoris (Primary | | | [...] note might be different from the orig [facility] CARDIAC REHABILITATION [address] [facility] [address] Cardiac Rehab Discharge Date: 12/09/2018 Patient Information Patient Name: Bob Will Date of : 1955 Age: 63 y.o. Referring Provider: Randy Figueroa MD Encounter Diagnoses Code Name Primary? I25.10 Coronary artery disease involving [place] coronary artery of [place] heart without angina pectoris Yes Z98.61 Post [...] PTCA in Oct 2017, CHF, LVEF 35-40%, ANATOMICAL EMBALMER -D placement in [facility] on 10/17/2017. He has recently increased his metoprolol dose and is on Entresto. He arrives in electric [employer] heelchair and has been inactive. Fall Ri [...] control. Also began walking with his around NPS 3 days a week along with chasing [...] Healthy Dietary Education Date: 08/03/18 -Referral to Enrolled Agent: Date: -DVD: Healthy Eating For Life [...] exercise until stable. Date: Range: -Referral to Truck Headlight Assembler Date: Education Points listed below- Date [...] Unforeseen circumstances makes the constant trip from [place] to not be a viable option a [...] W | | | | | | [place], | | | | | | [place] [address] | | | | | | [phone] | | | | | | | | +--------+ + + + + documented as of this encounter Visit Diagnoses + + | Diagnosis | + + | Coronary artery disease involving [place] coronary artery of [place] heart without | | angina pectoris - Primary | + + | Post PTCA Postsurgical percutaneous transluminal coronary angioplasty status | + + documented in this encounter
[~2019-01-14 06:05] MED LIST changes: +ACID REDUCER150 MG PO; -RANITIDINE HCL300 MG PO
--- OUTSIDE RECORDS SUMMARY | 2019-01-14 06:08 | XMS ---
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 Care History Medical/Surgical 01/11/2019 [facility] - PATIENT HAS AN APT WITH DR GONZALEZ ON 01/14/19 FOR FOLLOW UP TO ED VISITS. - PATIENT HAS DECLINED SERVICES FROM [facility]- CARDIAC REHAB. 10/18/2018 [facility] - Patient is currently established with [facility]. If patient is seen in the ED during business hours. Please contact CHWs at [facility]. Care Recommendation: This patient has had 5 or more Emergency Department visits in the last 12 months.\T\nbsp; Patient requires education on the scope and purpose of the ED as an acute care provider not a Primary Care Provider and should not be utilized for chronic conditions.\T\nbsp; These are guidelines and the provider should exercise clinical judgment when providing care. 12/07/2017 [facility] - Patient is currently utilizing PCP Dr Matson and has been referred to a mud analysis supervisor. - All chronic conditions please refer to [...] ED please contact Community Health WorkerLamar at [phone]. These are guidelines and the provider should exercise clinical judgment when providing care. [facility]12 MO.) [facility] TOTAL 16 NOTE: Visits indicate total known visits. ED/UCC VISIT TRACKING (12 MO.) 01/14/2019 06:06 [facility] TYPE: Emergency COMPLAINT: - POSS RESPIRATORY DISTRESS 01/10/2019 08:02 [facility] TYPE: Emergency COMPLAINT: - SOB DIAGNOSES: - Dyspnea, unspecified - Other 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 (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 - Pure hypercholesterolemia, unspecified - Acquired absence of other specified parts of digestive tract - Heart failure, unspecified - terminal carman (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 - Personal history of nicotine dependence - Old myocardial infarction - Chronic obstructive pulmonary disease, unspecified - Hypertensive heart disease with heart failure - Presence of cardiac pacemaker 12/24/2018 08:26 [facility] [place] TYPE: Emergency COMPLAINT: - SOB/BURNING IN CHEST DIAGNOSES: - Chronic kidney disease, unspecified - Old myocardial infarction - Presence of automatic (implantable) cardiac defibrillator - Hypertensive heart and chronic kidney disease with heart failure and stage 1 through stage 4 chronic kidney disease, or unspecified chronic kidney disease - terminal carman (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 - Personal history of nicotine dependence - Chronic obstructive pulmonary disease, unspecified - Other intermodal dispatcher (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 - Pure hypercholesterolemia, unspecified [...] DIAGNOSES: - Old myocardial infarction - Other intermodal dispatcher (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 - terminal carman (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 - Shortness of [...] nicotine dependence - Chest pain, unspecified - correction (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 - Presence of coronary angioplasty implant and graft - Other 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 (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 - Acquired absence of other specified parts of digestive tract - Presence of cardiac pacemaker 10/16/2018 06:03 [facility] [place] TYPE: Emergency COMPLAINT: - SOB 08/26/2018 11:00 [facility] [place] TYPE: Emergency DIAGNOSES: - low bp - Adverse effect of beta-adrenoreceptor antagonists, initial encounter - Weakness - Hypotension 08/18/2018 00:07 [facility] TYPE: Emergency COMPLAINT: - SOB DIAGNOSES: - Hypertensive heart disease with heart failure - Disorder of kidney and ureter, unspecified - Personal history of nicotine dependence - Other 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 (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 - Heart failure, unspecified - Shortness of breath - Old myocardial infarction - Chronic obstructive pulmonary disease with (acute) exacerbation - Pure hypercholesterolemia, unspecified 08/09/2018 09:56 [facility] TYPE: Emergency COMPLAINT: - L HIP PAIN/NO INJURY DIAGNOSES: - Pain in left hip - Sciatica, left side - Pure hypercholesterolemia, unspecified - Essential (primary) hypertension - Other 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 (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 - Old myocardial infarction 06/26/2018 06:43 [facility] TYPE: Emergency COMPLAINT: - SOB DIAGNOSES: - Heart failure, unspecified - Shortness of breath - Hypertensive heart disease with heart failure - Chronic obstructive pulmonary disease with (acute) exacerbation - Other 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 (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 06/17/2018 02:41 [facility] [place] TYPE: Emergency COMPLAINT: - SOB DIAGNOSES: - Other intermodal dispatcher (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 - Dyspnea, unspecified - Essential (primary) hypertension - Presence of coronary angioplasty implant and graft - correction (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 - Personal history of nicotine dependence - Shortness of breath 05/01/2018 07:47 [facility] TYPE: Emergency DIAGNOSES: - Chest pain, unspecified - Non-ST elevation (NSTEMI) myocardial infarction - Acute pulmonary edema - Shortness of Breath 05/01/2018 03:23 [facility] [place] TYPE: Emergency COMPLAINT: - SOB DIAGNOSES: - Shortness of breath - terminal carman (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 - Non-ST elevation (NSTEMI) myocardial infarction - Heart failure, unspecified - Other 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 (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 - Personal history of nicotine dependence 04/17/2018 06:31 [facility] [place] TYPE: Emergency COMPLAINT: - CHEST PAIN DIAGNOSES: - Personal history of nicotine dependence - Chest pain, unspecified - Precordial pain INPATIENT VISIT TRACKING (12 MO.) 12/11/2018 09:26 [facility] [place] TYPE: Medical Surgical COMPLAINT: - CHF DIAGNOSES: - Presence of automatic (implantable) cardiac defibrillator - Hyperlipidemia, unspecified - correction (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 - Personal history of nicotine dependence - Hypotension due to drugs - Chronic obstructive pulmonary disease, unspecified - Cervicalgia - correction (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 of antithrombotics/antiplatelets - Acute on [...] count, unspecified - Atherosclerotic heart disease of [place] coronary artery without angina pectoris - Acute kidney failure, unspecified - Other intermodal dispatcher (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 - Acute and chronic respiratory failure with hypoxia - Type 2 diabetes mellitus with diabetic chronic kidney disease - Gastro-esophageal reflux disease without esophagitis - Dependence on supplemental oxygen - terminal carman (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 of oral hypoglycemic drugs - Opioid dependence, uncomplicated 11/02/2018 22:09 [facility] [place] TYPE: Medical Surgical COMPLAINT: - DECOMPENSATED HEART FAILURE DIAGNOSES: - Hyperlipidemia, unspecified - Type 2 diabetes mellitus with diabetic chronic kidney disease - Chronic kidney disease, stage 3 (moderate) - Coronary angioplasty status - Personal history of nicotine dependence - Presence of automatic (implantable) cardiac defibrillator - correction (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 of opiate analgesic - Psychophysiologic insomnia - Chronic pain syndrome - Old myocardial infarction - terminal carman (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 of antithrombotics/antiplatelets - Chronic obstructive pulmonary disease, unspecified - Idiopathic sleep related nonobstructive alveolar hypoventilation - Gastro-esophageal reflux disease without esophagitis - Acute on chronic systolic (congestive) heart failure - Acute respiratory failure with hypoxia - correction (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 of oral hypoglycemic drugs - correction (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 - Other intermodal dispatcher (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 - Atherosclerotic heart disease of [place] coronary artery without angina pectoris 10/16/2018 06:04 [facility] [place] TYPE: Observation COMPLAINT: - DECOMPENSATED HEART FAILURE DIAGNOSES: - Ischemic cardiomyopathy - Type 2 diabetes mellitus with diabetic chronic kidney disease - Chronic pain syndrome - Dependence on supplemental oxygen - Unspecified inflammatory spondylopathy, cervical region - Chronic obstructive pulmonary disease, unspecified - terminal carman (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 of oral hypoglycemic drugs - Personal history of nicotine dependence - terminal carman (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 - Presence of automatic (implantable) cardiac defibrillator - Other 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 (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 - Acute on chronic systolic (congestive) heart failure - Presence of coronary angioplasty implant and graft - Atherosclerotic heart disease of [place] coronary artery without angina pectoris - Old myocardial infarction - Chronic respiratory failure with hypoxia - Shortness of breath - Gastro-esophageal reflux disease without esophagitis - correction (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 of opiate analgesic - Hypertensive chronic kidney disease with stage 1 through stage 4 chronic kidney disease, or unspecified chronic kidney disease - terminal carman (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 of antithrombotics/antiplatelets - Chronic kidney disease, stage 3 (moderate) - Hyperlipidemia, unspecified 05/13/2018 16:21 [facility] MARKO Rosales TYPE: Cardiology DIAGNOSES: - Heart failure, unspecified - Atherosclerotic heart disease of [place] coronary artery without angina pectoris - Family history of other specified conditions - Atherosclerotic heart disease of [place] coronary artery with other forms of angina pectoris - Chronic systolic (congestive) heart failure - Coronary Artery Disease - Other forms of angina pectoris - Ischemic cardiomyopathy - Other forms of dyspnea - Essential (primary) hypertension - Presence of automatic (implantable) cardiac defibrillator 05/01/2018 07:47 [facility] TYPE: General Medicine DIAGNOSES: - Acute pulmonary edema - Non-ST elevation (NSTEMI) myocardial infarction - Chest pain, unspecified - Illness, unspecified [email or web address]
--- NOTE | 2019-01-14 16:09 | NUR ---
sitting up on side of bed, resting arms on side table.
--- NOTE | 2019-01-14 19:30 | NUR ---
RECEIVED REPORT AT 1900, FOUND PT SITTING UP AT SIDE OF BED TALKING WITH HIS . PT APPEARED IN GOOD SPIRITS AND OVERALL WAS LOOKING BETTER THAN THIS MORNING WHEN ARRIVING VIA EMS. PT IS AWARE OF HIS FLUID RESTRICTION.
--- NOTE | 2019-01-14 21:16 | NUR ---
V/S OVERALL WDL AT THIS TIME. ALL LOBES HAVE EXPIRATORYH WHEEZING PRESENT AND CRACKLES IN THE BASES. PT DENIES SOB AT THIS TIME. S1 S2 NOTED. ABD SOUNDS ARE PRESENT BUT ABD IS FIRMER THAN USUAL TO TOUCH STATED BY PT. BILATERAL LOWER LEG EDEMA +2 WITH +1 PEDIS PULSES BILATERALLY. PT IS AAOX4, PT HAS SOME EDEMA IN BOTH HANDS AND BOTH HANDS ARE RED IN COLOR. WILL CONTINUE TO MONITOR. NO NEW CONCERNS NOTED AT THIS TIME.
--- NOTE | 2019-01-14 21:52 | NUR ---
patient used call light to have the fan turned on and urinal empited. He does not need anything further at this time. call light in place and is sitting up on the side of the bed.
--- NOTE | 2019-01-14 22:18 | NUR ---
PT APPEARS TO BE SLEEPING AT THIS TIME. NO NEW CONCERNS NOTED.
--- NOTE | 2019-01-14 22:57 | NUR ---
PT IS STILL SLEEPING AT THIS TIME. V/S WDL.
--- NOTE | 2019-01-14 23:00 | EKG ---
[facility] [address] [place] [address] Signed Atrial-sensed ventricular-paced rhythm Biventricular pacemaker detected Abnormal ECG When compared with ECG of 10-JAN-2019 08:29, Vent. rate has increased BY 28 BPM Confirmed by NEREYDA VELEZ MD ([id number]) on 01/14/2019 11:00:03 PM Electronically Signed By: NEREYDA VELEZ MD 01/14/19 2300 PATIENT NAME: RON MCKEON Electrocardiogram DATE OF : 53 PHYSICIAN: NEREYDA VELEZ MD REPORT #: [id number] REPORT IS CONFIDENTIAL AND NOT TO BE RELEASED WITHOUT AUTHORIZATION
--- NOTE | 2019-01-15 | NUR ---
PT WAS WOKEN UP FOR ASSESSMENT. ALL LOBES AT THIS TIME ARE CLEAR, PT DENIES SOB. OTHERWISE SECOND ASSESSMENT WAS THE SAME THE FIRST.
--- NOTE | 2019-01-15 01:25 | NUR ---
PT IS SLEEPING AT THIS TIME. PT IS TOLERATING VAPOTHERM WELL.
--- NOTE | 2019-01-15 02:46 | NUR ---
WHILE ON LUNCH BREAK, SUP CALLED MD VELEZ AND A ONE TIME ORDER FOR NORDAWNA WAS OBTAINED. WILL CONTINUE TO MONITOR.
--- NOTE | 2019-01-15 03:28 | NUR ---
PT AT THIS TIME IS SITTING AT SIDE OF BED. PAIN IS BETTER STATED BY PT, 03/16. MOUTH SWABS WERE GIVEN. PT HAS NO NEEDS AT THIS TIME.
--- NOTE | 2019-01-15 05:26 | NUR ---
PT IS STILL AWAKE SITTING ON SIDE OF BED. ALLEVYN WAS CHANGED ON LEFT HEEL.
--- NOTE | 2019-01-15 05:43 | NUR ---
AT START OF SHIFT PT HAD EXIRATORY WHEEZING PRESENT IN ALL LOBES WITH CRACKLES IN THE BASES. OTHER V/S WERE AND HAVE BEEN WDL. ALL LOBES WERE CLEAR WITH LATER ASSESSMENTS. PT HAS +2 BILATERAL LOWER LEG EDEMA PRESENT WITH PEDIS PULSES +1. BOTH HANDS ALSO HAVE TRACE EDEMA PRESENT AND A RED IN COLOR. PT HAS DENIED SOB ALL SHIFT. ABD SOUNDS ARE PRESENT BUT ABD IS FIRM TO TOUCH AND MILDLY DISTENDED STATED BY PT. BG AT 2100 WAS 130, NO INSULIN COVERAGE WAS NEEDED. PT SLEPT SOME THIS SHIFT. PAIN WAS NOT WELL CONTROLLED THIS SHIFT WITH AVAILABLE PRN TYLENOL AND NORCO AVAILABLE. MD VELEZ WAS CALLED FOR A ONE TIME DOSE OF NORCO. STANDING WEIGHT THIS MORNING WAS 210 LBS.
--- NOTE | 2019-01-15 19:31 | NUR ---
RECEIVED REPORT AT 1899. IN REPORT I WAS TOLD THAT PT HAD ONLY 300ML OF FLUID LEFT FOR THE NIGHT AND THAT PT WAS AWARE. UPON ENTERING THE ROOM, THE CUP WAS EMPTY AND PT STATED THAT HE HAS ANOTHER 300ML FOR TONIGHT. OTHERWISE PT HAD NO NEEDS. PAIN WAS BETTER HE STATED, 03/16
--- NOTE | 2019-01-15 19:37 | NUR ---
RECEIVED REPORT AT 1900, FOUND PT SITTING AT SIDE OF BED. PT HAS ANOTHER 300ML FOR TONIGHT. PT HAS NO NEEDS AT THIS TIME. PAIN IS BETTER STATED BY PT, 03/16.
--- NOTE | 2019-01-15 20:29 | NUR ---
V/S SO FAR ARE WDL, RIGHT LOBES ARE CLEAR BUT DIMINISHED SOME. RUL CLEAR, RML/RLL HAVE SOME EXPIRATORY WHEEZING PRESENT. PT DENIES SOB. ABD SOUNDS ARE PRESENT. DENISE IN ABDOMEN SI SLIGHTLY BETTER THAN YESTERDAY. BILATERAL LOWER LEG EDEMA IS ALSO BETTER TODAY,+1. BILATERAL TRACE EDEMA ON HANDS IS UNCHANGED SINCE YESTEDAY. ALLEVYN IS COVERING LEFT HEEL ULCER. PAIN AT THIS TIME IS 7/10, WHICH IS BASELINE FOR PT. PT TO REMAIN ON CURRENT VAPOTHERM SETTING FOR TONIGHT. WILL TRY TO WEAN HIM TOMORROW PER RT. NO NEW CONCERNS NOTED AT THIS TIME.
--- NOTE | 2019-01-15 22:00 | NUR ---
PT AT THIS TIME APPEARS TO BE SLEEPING. NO NEW CONCEN NOTED.
--- NOTE | 2019-01-15 23:00 | NUR ---
PT AT THIS TIME IS SLEEPING. V/S ARE WDL.
--- NOTE | 2019-01-16 00:09 | NUR ---
PT WAS WOKEN UP FOR ASSESSMENT. RUL WAS CLEAR, RML/RLL HAD SOME SLIGHT WHEEZING PRESENT, ALL LEFT LOBES WERE CLEAR. NO OTHER CHANGES NOTED WITH SECOND ASSESSMENT.
--- NOTE | 2019-01-16 00:53 | NUR ---
PT IS AWAKE SITTING ON SIDE OF BED. PT ASKED FOR SOME MOUTH SWABS AND A TYLENOL FOR PAIN 04/16. PT HAS NO OTHE NEEDS AT THIS TIME. NO NEW CONCERNS NOTED.
--- NOTE | 2019-01-16 03:00 | NUR ---
PT FELL ASLEEP A FEW MINUTES AGO AND AT THIS TIME HIS O2 SATS HAVE DROPPED TO 86% AT TIMES. RT WAS CALLED TO ADJUST THE SETTINGS ON THE VAPOTHERM. OTHERWISE V/S ARE WDL. WILL CONTINUE TO MONITOR.
--- NOTE | 2019-01-16 03:30 | NUR ---
RT INCREASED SETTINGS ON VAPOTHERM TO 30L/40%. PT SO FAR IS DOING WELL ON IT WITH O2 SATS >90%.
--- NOTE | 2019-01-16 04:16 | NUR ---
PT AT THIS TIME IS SLEEPING. LETTING PT SLEEP FOR NOW. LAST ASSESSMENT WILL BE DONE AROUND 0500. V/S ARE WDL. NO NEW CONCERNS NOTED.
--- NOTE | 2019-01-16 05:29 | NUR ---
AT 0500 PT WAS UP AND SITTING AT SIDE OF BED. ALL RIGHT LOBES HAD EXPIRATORY WHEEZING PRESENT. NIGHAT WAS CLEAR, LLL HAD EXPIRATORY WHEEZING/COARSENESS PRESENT. PT STATED THAT HE WAS A BIT SHORT OF BREATH BUT REFUSED A BREATHING TREATMENT. PT STATED THAT HE WAS GONNA BE ALRIGHT. BILATERAL LEG EDMEA +1, FIRMNESS OF ABD IS UNCHANGED. STANDING WEIGHT WAS 208.8 LBS. NO NEW CONCERNS NOTED AT THIS TIME.
--- NOTE | 2019-01-16 06:17 | NUR ---
AT START OF SHIFT VAPOTHERM SETTING WAS 30L/30%. AT 0300 O2 SATS DROPED TO ABOUT 86% AND RT WAS CALLED AND SETTINGS WERE CHANGED TO 30L/40%. PT DID WELL WITH THAT WHILE SLEEPING. AT 0615 SETTINGS WERE CHANGED BACK TO 30L/30% SINCE PT WAS AWAKE. LOBES OVER THE COURSE TO THIS SHIFT HAD CRACKLES IN THE BASES AT FIRST, EXIRATORY WHEEZING WAS ALSO PRESENT AT TIMES. UPPER LOBES REMAINED CLEAR ALL SHIFT. PT DENIED SOB UNTIL 0500 BUT REFUSED A RT TREATMENT. OVERALL EDEMA IN ABD AND LOWER LEGS HAS DECREASED SOME. STANDING WEIGHT WAS 208.8 LBS. BG AT 2100 WAS 102. NO INSULIN GIVEN. V/S HAVE BEEN WDL ALL SHIFT OVERALL. NECK PAIN WAS BETTER CONTROLLED WITH TYLENOL/NORCO THIS SHIFT VS. LAST NIGHT. RT WILL TRY TO WEAN PT OFF VAPOTHERM TODAY.
--- NOTE | 2019-01-16 09:39 | NUR ---
PT CAME OVER IN CHAIR WITH CCU RN ANOOP AND CHELSEA. RT KB ALSO IN ROOM FOR TREATMENT. VAPOTHERM SET UP AND FLUID BAG CHANGED. PT TOLERATED WELL USED URINAL. SITTING UP IN CHAIR. ALL PERSONAL BELONGINGS MOVED WITH PT.
--- NOTE | 2019-01-16 09:41 | NUR ---
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 RT IN ROOM TO HELP MOVE VAPOTHERM. PT TOLERATED ACTIVITY WELL WITHOUT SHORTNESS OF BREATH.
--- NOTE | 2019-01-16 09:55 | NUR ---
PATIENT SITTING UP IN CHAIR. VITAL SIGNS AND I&O DONE. CALL LIGHT WITHIN REACH. NO OTHER NEEDS AT THIS TIME
--- NOTE | 2019-01-16 14:09 | NUR ---
PATIENT SITTING UP IN CHAIR. VITAL SIGNS AND I&O DONE. CALL LIGHT WITHIN REACH. NO OTHER NEEDS AT THIS TIME
--- NOTE | 2019-01-16 17:51 | NUR ---
PATIENT SITTING UP IN CHAIR. IN ROOM. IV WRAPPED. SETS UP BATHROOM FOR SHOWER. CALL LIGHT WITHIN REACH. NO OTHER NEEDS AT THIS TIME
--- NOTE | 2019-01-16 19:25 | NUR ---
RECIEVED BEDSIDE REPORT FROM JJ HAMILTON. PATIENT WALKING INDEPENDENTLY IN ROOM. 3L VIA NC, NO SIGNS OF DISTRESS. PROVIDED WATER TO PATIENT PER PATIENT REQUEST THAT IS WITHIN PATIENT'S ALLOTED FLUID RESTRICTION. CALL LIGHT WITHIN REACH. WHITE BOARD UPDATED. PT DENIES ANYMORE NEEDS AT THIS TIME.
--- NOTE | 2019-01-16 21:59 | NUR ---
ASSESSMENT COMPLETE, REFER TO ASSESSMENT. MEDICATIONS ADMINISTERED PER ORDER. NO INSULIN COVERAGE REQUIRED DUE TO PT BG NOT BEING WITHIN RANGE TO RECIEVE INSULIN PER ORDER PARAMETERS. PATIENT REPORTS "7/10" PAIN IN NECK AND SHOULDER BLADES, PT DENIES WANTING PRN PAIN MEDICATION AT THIS TIME. PATIENT REPORTS "7/10" "NERVE PAIN" IN BLE, PT AMBULATED IN HALLWAY WITH THIS RN, PT STATED "LEGS FEEL BETTER AFTER WALKING". 3L VIA NC. BEFORE AMBULATION IN HALLWAY, PT O2 SATS: 96%, AFTER WALKING 2 LAPS, O2 SATS: 98%, PT STATED FEELING SLIGHTLY "WINDED" AFTER WALKING BUT GOES AWAY AFTER REST, DENIES SOB. PT REPORTS NUMBNESS IN BLE THAT IS CHRONIC FOR PT. LEFT HEEL ASSESSED, PT REPORTS "PRESSURE ULCER" IS PRESENT, BLANCHABLE, NEW ALLYVEN IN PLACE. +2 EDEMA NOTED IN RLE, +1 EDEMA NOTED IN LLE. PT DENIES SHORTNESS OF BREATH, DIFFICULTY BREATHING, OR CHEST PAIN. INCENTIVE SPIROMETER AT BEDSIDE, PATIENT EXPRESSES UNDERSTANDING OF DEVICE. CALL LIGHT WITHIN REACH. NO MORE NEEDS AT THIS TIME.
--- NOTE | 2019-01-16 23:03 | NUR ---
V/S AND I&O TAKEN AND CHARTED. MOUTH SWAB/SPONGE FOR MOISTURIZER GIVEN.
--- NOTE | 2019-01-16 23:22 | NUR ---
ROUNDED ON PT LAYING SITTING UP IN BED. PATIENT REPORTS "7/10" PAIN IN BLE, PRN PAIN MEDICATION ADMINISTERED PER ORDER. CALL LIGHT WITHIN REACH. PT DENIES HAVING ANYMORE NEEDS AT THIS TIME.
--- NOTE | 2019-01-17 01:00 | NUR ---
ROUNDED ON PATINET SITTING UP IN BED. PT REPORTS PAIN IN BLE A "6/10", STATED PAIN HAS REDUCED A LITTLE BIT. MOUTH SWABS PROVIDED. URINAL EMPTIED. CALL LIGHT WITHIN REACH. PT DENIES ANY MORE NEEDS AT THIS TIME.
--- NOTE | 2019-01-17 02:51 | NUR ---
ASSESSMENT COMPLETE, REFER TO ASSESSMENT. PATIENT REPORTS "9/10" PAIN IN NECK AND SHOULDERS, "7/10" PAIN IN BLE, PRN PAIN MEDICATION ADMINISTERED PER ORDER. PT REPORTS NUMBNESS AND TINGLING IN BLE. +1 EDEMA IN BLE, PT DENIES WANTING BLE ELEVATED ON PILLOW. THIS RN AMBULATED WITH PATIENT IN HALLWAY X2, O2 SATS: 95% ON 3L VIA NC BEFORE WALK, O2 SATS: 97% ON 3L AFTER WALK IN HALLWAY. DURING WALK PATIENT STOPPED A FEW TIMES AND STATED HAVING SHORTNESS OF BREATHING THAT "IS JESSICA THERE BUT NOT REALLY", UPON RETURNING TO THE ROOM AFTER WALK PT DENIES SHORTNESS OF BREATH. PT ABLE TO CARRY ON CONVERSATION WHILE AMBULATING. PT DENIES CHEST PAIN OR DIFFICULTY BREATHING. NO SIGNS OF DISTRESS. CALL LIGHT WITHIN REACH. MOUTH SWABS PROVIDED TO PATIENT PER PATIENT REQUEST. URINAL EMPTIED. PT DENIES ANY MORE NEEDS AT THIS TIME.
--- NOTE | 2019-01-17 06:16 | NUR ---
ROUNDED ON PATIENT SITTING UP IN CHAIR. PATIENT REPORTS "7/10" PAIN, PT DENIES WANTING ANY INTERVENTIONS FOR PAIN MANAGEMENT AT THIS TIME. FRESH WATER PROVIDED TO PATIENT WITHIN THE PARAMETERS OF PT'S FLUIDS RESTRICTION. CALL LIGHT WITHIN REACH. PT DENIES ANYMORE NEEDS AT THIS TIME.
--- NOTE | 2019-01-17 06:46 | NUR ---
PT SLEPT VERY LITTLE THIS SHIFT. 1800 ML FLUID RESTRICTION. 60GM CONSISTENT CARB DIET, 2 GM SODIUM. SBA WITH FWW. INCENTIVE SPIROMETER. PRN PAIN MEDICATION X2. NEW ALLYVEN PLACED ON LEFT HEEL. ACCU CHECK WITH SS, NO INSULIN COVERAGE REQUIRED PER ORDER PARAMETERS. 3L VIA NC. PATIENT AMBULATED IN HALLWAY X2 THIS SHIFT WITH NURSING PERSONNEL. USES CALL LIGHT APPROPRIATELY.
--- NOTE | 2019-01-17 07:52 | NUR ---
PATIENT UP IN CHAIR. CALL LIGHT IN REACH. NO FURTHER NEEDS AT THIS TIME.
--- NOTE | 2019-01-17 09:31 | NUR ---
PATIENT UP TO BATHROOM AND BACK TO CHAIR, IND. LINENS CHANGED. CALL LIGHT IN REACH. NO FURTHER NEEDS AT THIS TIME. PATIENT REFUSED SHOWER SAID HE HAD ONE YESTURDAY.
--- NOTE | 2019-01-17 10:22 | NUR ---
PT SITTING UP IN RECLINER. ON 3L O2 VIA NC, DENIES SHORTNESS OF BREATH. C/O 9/10 PAIN TO NECK AND BETWEEN SHOULDER BLADES. GAVE NORCO 10/325 MG 1 TAB PO PRN. PT HAS PERSONAL SUPPLIES AND CALL LIGHT IN REACH. DENIED OTHER NEEDS.
[2019-01-17] MEDS ORDERED: TORSEMIDE10 MG PO (11:10)
--- NOTE | 2019-01-17 12:14 | NUR ---
PT SITTING UP IN RECLINER EATING LUNCH. REPORTED PAIN RELIEF WITH PRN PAIN MEDICATION, STATED PAIN LEVEL IS DOWN FROM 9/10 TO 5/10. PT REPORTS THAT THIS IS HIS BASELINE LEVEL OF PAIN. DENIED NEEDS AT THIS TIME.
--- NOTE | 2019-01-17 13:25 | NUR ---
PT SITTING IN CHAIR, DRESSED AND ON O2 N/C. PT STATED HE WAS BACK AGAIN,"IT WAS MY OWN FAULT. I DIDN'T PAY ATTENTION TO HOW MUCH I WAS DRINKING-AND I PAYED FOR IT". PT THANKED ME FOR COMING BY AND FEELS HE IS BETTER PREPARED TO CARE FOR HIMSELF. EXTENDED A BLESSING, WILL FOLLOW NEEDED
--- NOTE | 2019-01-19 13:48 | NUR ---
Heart failure follow up phone call. Patient was discharged 01/17/19 from [facility]. He was seen by this service as inpatient. Patient reports he has medications. Was not feeling well "was swollen" yesterday and saw Dr Olivares who increased Torsemide dose.. Has follow up appointment with Dr. Olivares on 02/01/19 and he has transportation for appointment. He slept in chair last night but reports he slept well. Feels good today. Dinner last night was home cooked steak with mash potatoes and gravy. states gravy made from scratch and no salt. DC weight 205lb and today's AM weight 210 lb. States home scales are different than hospital. Encouraged, with teach back, to call PCP if gains weight on home scale. does not have any further concerns or questions at this time. Again offered atient to come in for outpatient heart failure education , patient will call to schedule PRN.
== END 2019-01-17 12:50 | disposition home or self-care (01) ==
LOC: ED 06:05 → CCU 06:07 → MS 01-16 09:29
PROVIDERS: ADMIT Internal Medicine
DX: I50.23 Acute on chronic systolic (congestive) heart failure (principal); I25.9 Chronic ischemic heart disease, unspecified; I25.10 Atherosclerotic heart disease of native coronary artery without angina pectoris; N17.9 Acute kidney failure, unspecified; J96.01 Acute respiratory failure with hypoxia; E11.22 Type 2 diabetes mellitus with diabetic chronic kidney disease; E11.65 Type 2 diabetes mellitus with hyperglycemia; N18.4 Chronic kidney disease, stage 4 (severe); E78.5 Hyperlipidemia, unspecified; G89.4 Chronic pain syndrome; K21.9 Gastro-esophageal reflux disease without esophagitis; I25.2 Old myocardial infarction; Z95.5 Presence of coronary angioplasty implant and graft; Z95.810 Presence of automatic (implantable) cardiac defibrillator; Z79.02 Long term (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 of antithrombotics/antiplatelets; Z79.82 Long term (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; Z79.891 Long term (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 of opiate analgesic; Z79.899 Other long term (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
CPT/HCPCS: 36415; 36600; 71045; 80048; 80053; 82803; 83036; 83735; 83880; 84484; 85025; 93005; 93010; 94640; 94660; 94799; 96372; 96374; 96376; 99285-25; G0378; J1650; J2405

== ENCOUNTER 2019-01-22 19:52 | Inpatient (IN) | payer OTHER ==
[~2019-01-22] VITALS: Ht 175.3 cm; Wt 88.0 kg
--- OUTSIDE RECORDS SUMMARY | ~2019-01-22 | XMS | Encounter Summary ---
Demographics + + + | Address | [address] | | | [place] [address] | + + + | Home Phone | | + + + | Preferred Language | Unknown | + + + | Marital Status | | + + + | Protestant Affiliation | Unknown | + + + | Race | Unknown | + + + | Ethnic Group | Unknown | + + + Author + + + | Author | [facility] | | | and [place] | + + + | Organization | [facility] | | | and [place] | + + + | Address | Unknown | + + + | Phone | Unavailable | + + + Support + + + + + | Name | Relationship | Address | Phone | + + + + + | [place] | [place] | [place] | | | | | [address] | | + + + + + Care Team Providers + +------+ + | Care Care Team Coordinator Scheduler Name | Role | Phone | + +------+ + | Young Haque DO | PCP | | + +------+ + Encounter Details +--------+ + + + + | Date | Type | Department | Care Team | Description | +--------+ + + + + | 11/25/ | Orders Only | [facility] | Lilian Machado, | | | 2018 | | CARDIOLOGY [address] | RN | | | | | [place], | | | | | | [place] [address] | | | | | | [phone] | | | +--------+ + + + + Social History + + [...] on file | | + + + + + + + | Job Start Date | Occupation | Industry | + + + + | Not on file | Not on file | Not on file | + + + + + + + + | Travel History | Travel Start | Travel End | + + + + + + | No recent travel history available. | + + documented as of this encounter Plan of Treatment +--------+ + + + + | Date | Type | Specialty | Care Team | Description | +--------+ + + + + | 03/24/ | Procedure | Cardiology | | | | 2018 | visit | | | | +--------+ + + + + | 03/24/ | Office | Cardiology | Jenny, | | | 2018 | Visit | | [facility] [address] | | | | | | [place], | | | | | | [place] [address] | | | | | | [phone] | | | | | | | | +--------+ + + + + documented as of this encounter Visit Diagnoses Not on filedocumented in this encounter"
--- OUTSIDE RECORDS SUMMARY | ~2019-01-22 | XMS | Encounter Summary ---
Demographics + + + | Address | [address] | | | [place] [address] | + + + | Home Phone | | + + + | Preferred Language | Unknown | + + + | Marital Status | | + + + | Sabianist Affiliation | NRP | + + + | Race | White | + + + | Ethnic Group | Not or | + + + Author + + + | Author | [facility] | + + + | Organization | [facility] | + + + | Address | Unknown | + + + | Phone | Unavailable | + + + Support + + + + + | Name | Relationship | Address | Phone | + + + + + | [place] Will | ECON | [address] | | | | | [place] [address] | | + + + + + Care Team Providers + +------+ + | Care Corn Cutter Name | Role | Phone | + +------+ + | Jamal Guerrero MD | PCP | | + +------+ [...] + + + + | 03/19/ | Anesthesia | 6A Intra Op [facility] | Marcela Wiggins, | | | 2017 | Event | [facility] | MD [address] [facility] | | | | | Admitting Desk | [facility] | | | | | Located on the | [place], [place] | | | | | [address] | [address] | | | | | [facility] | [phone] | | | | | [place], [place] | | | | | | [address] | | | +--------+ + + + + Anesthesia Record + + + + + | Procedure Name | Responsible | Anesthesia Start | Anesthesia Stop Time | | | Anesthesiologist | Time | | + + + + + | CARDIAC ECMO | Pierre Beal MD | 03/19/17 0949 | 03/19/17 1306 | | PROCEDURES(SOR ONLY) | | | | | (N/A Chest) | | | | + + + + + +----+---+ + + | Da | T | Event | Comment | | te | i | | | | | m | | | | | e | | | +----+---+ + + | 07 | 0 | Eq Check | Anesthesia machine checked Equipment verified | | /1 | 9 | | | | 3/ | 4 | | | | 20 | 9 | | | | 17 | | | | +----+---+ + + | | 0 | Pt. Check | Prior to anesthesia start, pt. Identified, examined, chart | | | 9 | | reviewed, PARQ held, anesthetic plan made or approved by | | | 4 | | attending anesthesiologist. NPO status confirmed as appropriate | | | 9 | | for procedure Preoperative evaluation: unchanged | +----+---+ + + | | 0 | An Start | | | | 9 | | | | | 4 | | | | | 9 | | | +----+---+ + + | | 0 | Art in-situ | | | | 9 | | | | | 4 | | | | | 9 | | | +----+---+ + + | | 1 | ICU to OR | Patient transported from ICU to OR on ECMO with perfusion present | | | 0 | | managin ECMO and RT present managing transport ventilator. | | | 3 | | | | | 5 | | | +----+---+ + + | | 1 | An Start | Transport uneventful VSS. | | | 0 | Data | | | | 4 | | | | | 2 | | | +----+---+ + + | | 1 | Vitals | Monitors applied Vital signs checked Patient ready for anesthesia | | | 0 | Checked | | | | 4 | | | | | 5 | | | +----+---+ + + | | 1 | Ready | | | | 1 | | | | | 0 | | | | | 3 | | | +----+---+ + + | | 1 | MARKY Probe | | | | 1 | Inserted | | | | 0 | | | | | 4 | | | +----+---+ + + | | 1 | Abx held | Already receiving antibiotics | | | 1 | Medical or | | | | 3 | Surgical | | | | 9 | Reason | | +----+---+ + + | | 1 | Pause | | | | 1 | | | | | 4 | | | | | 2 | | | +----+---+ + + | | 1 | Incision | | | | 1 | | | | | 4 | | | | | 5 | | | +----+---+ + + | | 1 | Surgery end | | | | 2 | | | | | 2 | | | | | 7 | | | +----+---+ + + | | 1 | MARKY PROBE | | | | 2 | REMOVED | | | | 2 | | | | | 7 | | | +----+---+ + + | | 1 | an stop | | | | 2 | data | | | | 4 | | | | | 4 | | | +----+---+ + + | | 1 | OR to | Patient transported to 12K ICU with Art Line, 5 Lead EKG, and | | | 2 | ICU/Handoff | SpO2 monitoring. Oxygenation and ventilation via Transport | | | 4 | | ventilator. | | | 4 | | | +----+---+ + + | | 1 | Quick Note | Transport uneventful VSS | | | 2 | | | | | 5 | | | | | 4 | | | +----+---+ + + | | 1 | Start ICU | | | | 3 | Handoff | | | | 0 | | | | | 2 | | | +----+---+ + + | | 1 | ICU Handoff | | | | 3 | Call | | | | 0 | | | | | 6 | | | +----+---+ + + | | 1 | Anesthesia | | | | 3 | End | | | | 0 | | | | | 6 | | | +----+---+ + + +------+ | Meds | +------+ + + + | Name | Total | + + + | EPINEPHrine (ADRENALIN) 5mg/250 | 497.2 mcg | | mL (0.02 mg/mL) IV infusion (ADC) | | + + + | heparin in D5W 25,000 Units/250 | 2,150 Units | | mL (100 Units/mL) IV infusion | | | (RTU) | | + + + | insulin regular in NaCl 0.9% IV | 12.21 Units | | infusion (1 unit/mL) | | + + + | propofol INF | 745,800 mcg | + + + | fentaNYL | 200 mcg | + + + | rocuronium | 100 mg | + + + | EPINEPHrine | 10 mcg | + + + | PHENYLEPHrine | 100 mcg | + + + | calcium gluconate | 1,000 mg | + + + | D5-1/2 NS | 90.83 mL | + + + | NS | 300 mL | + + + + + | Name | + + | O2 FR Avance (Total Liters) | + + | Insp Iso | + + | Et Iso | + + + + | No blood administrations on file. | + + +--------+ + + + | Type | Details | Placement | Removal | +--------+ + + + | Wound | Left; elbow; (Incision) | 03/18/17 1836 by | | +--------+ + + + | Periph | 03/15/17; Other hospital; Left; | 03/15/17 0000 by | 03/24/17 0924 by | | eral | Antecubital; 20 g; 03/24/17; | Suruthai Reji | Kayla Garcia, | | IV | 0924; Site problems | ALFONSO Elias | RN | +--------+ + + + | Periph | 03/15/17; Other hospital; Right; | 03/15/17 0000 by | 03/21/17 1301 by | | eral | Antecubital; 20 g; 03/21/17; 1301 | Monalisa Mendoza | [place] Matta RN | | IV | | ALFONSO Elias | | +--------+ + + + | ECMO | 03/15/17; 1500; Dr. Mak and | 03/15/17 1500 by | 03/19/17 1216 by | | Sage | Marylin; Venous; Left; Femoral; | Karime Mccoy RN | Bertin Trevizo RN | | a | 03/19/17; 1216 | | | +--------+ + + + | ECMO | 03/15/17; 1500; Dr. Mak and | 03/15/17 1500 by | 03/19/17 1216 by | | Sage | Marylin; Arterial; Left; Femoral; | Karime Mccoy RN | Bertin Trevizo RN | | a | 03/19/17; 1216 | | | +--------+ + + + | Sheath | 03/15/17; 1700; Dr. Yuki Arshad ; | 03/15/17 1700 by | 03/21/17 1400 by | | /Intro | Right; Neck; Internal Jugular; | Karime Mccoy RN | Siria Low RN | | ducer | Venous; 03/21/17; 1400 | | | | Single | | | | | Lumen | | | | +--------+ + + + | PA | 03/15/17; 1700; Right; Neck; | 03/15/17 1700 by | 03/21/17 1400 by | | Cathet | 03/21/17; 1400; Per order | Karime Mccoy RN | Siria Low RN | | er - | | | | | Single | | | | | | | | | | Infusi | | | | | on | | | | | Port | | | | +--------+ + + + | Feedin | 03/15/17; 2043; Dr. Radha Cintron; Oral; | 03/15/172043 by | 03/20/17 1330 by | | g Tube | 14; tolerated well; 03/20/17; | Latricia Brewster RN | Maria Esther Browning RN | | | 1330 | | | +--------+ + + + | ETT | 03/15/17; 2044; Dr. Radha Cintron; | 03/15/172044 by | 03/22/17927 by | | | Endotracheal Tube; 8; Oral; | Latricia Brewster RN | Siria Low RN | | | Cuffed; 03/22/17; 927; Per order | | | +--------+ + + + | Urethr | 03/15/17; 2100; Latricia Cohen; 1; | 03/15/17 2100 by | 03/26/17 0530 by | | al | Temp-probe Alexys; 16 Fr.; 10 mL; | Suremily Coburnon | Monique Graham RN | | Cathnilsa | 03/26/17; 0530; Per order | ALFONSO Elias | | | er | | | | +--------+ + + + | Arteri | 03/16/17; 1300; Left; Radial; | 03/16/17 1300 by | 03/23/17 1000 by | | al | 03/23/17; 1000 | Adela Pritchard RN | Cristy Bragg RN | | Line | | | | +--------+ + + [...] Not on filedocumented as of this encounter Procedures + +--------+ + + + | Procedure Name | Priori | Date/Time | Associated Diagnosis | Comments | | | ty | | | | + +--------+ + + + | ANE MARKY | Routin | 03/19/2017 | | | | | e | 4:55 PM | | | | | | PDT | | | + +--------+ + + + +---+--------+ | | | | | Proced | | | ure | | | Note - | | | Emigdio, | | | | | | Edward | | | A, MD | | | - | | | | | | 2016 | | | 3:13 | | | PM PDT | | | | | | Proced | | | urePro | | | cedure | | | : MARKY | | | Indica | | | tion: | | | Wall | | | motion | | | and | | | Valve | | | functi | | | on | | | Consen | | | t: | | | Includ | | | ed in | | | anesth | | | esia | | | consen | | | t | | | Locati | | | on | | | Perfor | | | med:OR | | | | | | Proced | | | ure | | | Inform | | | ation | | | Perfor | | | med | | | under | | | genera | | | l | | | anesth | | | esia | | | Patien | | | t in | | | proper | | | | | | positi | | | on OG | | | Tube | | | option | | | : OG | | | Tube | | | Placed | | | , | | | suctio | | | phoebe | | | and | | | remove | | | d | | | Probe | | | placed | | | by | | | anesth | | | esiolo | | | gist | | | withou | | | t | | | event | | | Probe | | | Serial | | | | | | Number | | | : | | | [id number] | | | - [id number] | | | | | | Comple | | | macho | | | byAtte | | | nding | | | Name: | | | EMIGDIO, | | | EDWARD | | | | | | APerfo | | | rmed | | | by | | | Reside | | | nt, | | | Reside | | | nt | | | Name: | | | PARADI | | | S, | | | MARCELA | | | J | | | PROBE | | | INSERT | | | IONEas | | | y, 1st | | | | | | attemp | | | t | | | placem | | | ent. | | | Patien | | | t was | | | under | | | genera | | | l, | | | endotr | | | acheal | | | | | | anesth | | | esia. | | | Prior | | | to | | | insert | | | ion, | | | MARKY | | | probe | | | was | | | inspec | | | macho | | | for | | | cleanl | | | iness, | | | knob | | | functi | | | onalit | | | y, and | | | | | | presen | | | ce of | | | proper | | | | | | steril | | | e | | | proces | | | sing | | | tag. | | | Steril | | | e | | | jelly | | | used | | | for | | | lubric | | | ant.IN | | | DICATI | | | ONCard | | | iogeni | | | c | | | Shock | | | s/p | | | Veno-A | | | rteria | | | l | | | ECMO; | | | Intra- | | | op | | | ECMO | | | de-can | | | nulati | | | on | | | possib | | | le | | | Impell | | | a LVAD | | | | | | placem | | | ent | | | PRE-IN | | | TERVEN | | | TION | | | FINDIN | | | GS | | | (RHYTH | | | M: | | | Sinus | | | Tachyc | | | ardia) | | | AORTIC | | | | | | VALVES | | | tructu | | | rally | | | normal | | | , | | | tri-le | | | aflet | | | valve | | | withou | | | t | | | or AI; | | | valve | | | opens | | | with | | | each | | | systol | | | e.MITR | | | AL | | | VALVES | | | tructu | | | rally | | | normal | | | | | | valve. | | | No MR | | | or | | | MS. | | | Subval | | | vular | | | appara | | | tus is | | | | | | intact | | | . | | | There | | | is no | | | GISELLE of | | | the | | | anteri | | | or | | | leafle | | | t.TRIC | | | USPID | | | VALVES | | | tructu | | | rally | | | normal | | | | | | valve. | | | No TR | | | or | | | TS.PUL | | | MARICEL | | | VALVES | | | tructu | | | rally | | | normal | | | | | | valve. | | | No PI | | | or | | | PS.ATR | | | IAUnab | | | le to | | | assess | | | | | | atrial | | | size | | | due to | | | | | | presen | | | ce of | | | [place] | | | ECMO. | | | Venous | | | | | | cannul | | | a is | | | presen | | | t | | | going | | | from | | | IVC to | | | RA to | | | SVC | | | with | | | distal | | | end | | | severa | | | l | | | centim | | | eters | | | inside | | | the | | | SVC. | | | There | | | is no | | | PFO by | | | color | | | flow | | | dopple | | | r. LA | | | append | | | age is | | | well | | | visual | | | ized | | | and | | | open, | | | but | | | there | | | is a | | | large | | | echode | | | nse | | | area | | | at the | | | | | | ostium | | | | | | highly | | | | | | sugges | | | tive | | | of | | | thromb | | | us | | | (Image | | | 65) | | | and LA | | | | | | append | | | age | | | veloci | | | ty is | | | low | | | (0.3m/ | | | sec). | | | RIGHT | | | VENTRI | | | CLENor | | | mal RV | | | size | | | and | | | systol | | | ic | | | functi | | | on.LEF | | | T | | | VENTRI | | | CLELV | | | analys | | | is is | | | made | | | on [place] | | | ECMO | | | and | | | epi | | | 0.02mc | | | g/kg/m | | | in. | | | Due to | | | the | | | presen | | | ce of | | | ECMO, | | | LV | | | size | | | and | | | functi | | | on may | | | not | | | be | | | accura | | | te. | | | Normal | | | LV | | | chambe | | | r | | | size. | | | Mildly | | | | | | reduce | | | d LV | | | systol | | | ic | | | functi | | | on. | | | Visual | | | ly | | | estima | | | macho LV | | | EF | | | 40-45% | | | . | | | There | | | is | | | basal | | | and | | | mid | | | infero | | | septal | | | and | | | missy | | | septal | | | | | | akines | | | is, | | | apical | | | | | | septal | | | | | | akines | | | is, | | | apical | | | cap | | | akines | | | is. | | | The | | | basal, | | | mid, | | | and | | | apical | | | | | | anteri | | | or | | | wall | | | is | | | hypoki | | | netic/ | | | akinet | | | ic, | | | and | | | this | | | is | | | dynami | | | c. | | | There | | | is | | | dense | | | sponta | | | neous | | | echo | | | contra | | | st | | | origin | | | ating | | | from | | | the LV | | | apex | | | travel | | | ing | | | along | | | the | | | septal | | | wall | | | and | | | into | | | the | | | LVOT, | | | but no | | | gross | | | | | | thromb | | | us is | | | visual | | | ized | | | in the | | | LV. | | | LV | | | septum | | | is | | | promin | | | ent, | | | but | | | LVOT | | | is | | | 1.8cm | | | in | | | diamet | | | er and | | | there | | | is no | | | | | | eviden | | | ce of | | | LVOT | | | obstru | | | ction. | | | AORTAV | | | isuali | | | zed | | | portio | | | ns of | | | the | | | aorta | | | are | | | normal | | | in | | | size, | | | intact | | | , and | | | withou | | | t | | | dissec | | | tion. | | | Measur | | | ements | | | : AV | | | Annulu | | | s: 2.3 | | | cm; | | | Sinus | | | of | | | Valsal | | | va: | | | 3.4 | | | cm; ST | | | | | | Juncti | | | on: | | | 2.9 | | | cm; | | | Ascend | | | ing: | | | 3.9 | | | cm; | | | Distal | | | Arch: | | | | | | poorly | | | | | | visual | | | zied | | | cm; | | | Descen | | | ding: | | | 2.6 | | | cm. | | | Athero | | | sclero | | | sis | | | <4mm | | | throug | | | hout | | | visual | | | ized | | | portio | | | ns.OTH | | | ERA | | | 1cm | | | perica | | | rdial | | | effusi | | | on is | | | presen | | | t | | | along | | | the RV | | | free | | | wall | | | in | | | some | | | views. | | | Tiny | | | left | | | pleura | | | l | | | effusi | | | on. | | | POST-I | | | NTERVE | | | NTION | | | FINDIN | | | GS | | | (RHYTH | | | M: | | | Sinus | | | Tachyc | | | ardia) | | | | | | Valves | | | are | | | unchan | | | ged. | | | Venous | | | | | | cannul | | | a has | | | been | | | remove | | | d from | | | RA. | | | Normal | | | RV | | | size | | | and | | | functi | | | on. | | | LVEF | | | 40-45% | | | . | | | Anteri | | | or | | | wall | | | motion | | | | | | appear | | | s | | | somewh | | | at | | | better | | | . LA | | | append | | | age | | | ostial | | | | | | echode | | | nsity | | | appear | | | s more | | | | | | promin | | | ent | | | than | | | before | | | . | | | Sponta | | | neous | | | echo | | | contra | | | st is | | | still | | | presen | | | t in | | | the LV | | | | | | chambe | | | r | | | (Discu | | | ssed | | | with | | | | | | Darrell) | | | . | | | | | | Attend | | | ing | | | physic | | | ally | | | presen | | | t | +---+--------+ documented in this encounter Visit Diagnoses Not on filedocumented in this encounter Administered Medications + +--------+ + +------+------+ | Medication Order | MAR | Action | Dose | Rate | Site | | | Action | Date | | | | + +--------+ + +------+------+ | calcium gluconate 10 % (100 | Given | 03/19/20 | 1,000 mg | | | | mg/mL) injection intravenous, | | 17 12:00 | | | | | INTRAPROCEDURE PRN, Starting Radha | | PM PDT | | | | | 03/19/17 at 1200, Until Radha | | | | | | | 03/19/17 at 1244 | | | | | | + +--------+ + +------+------+ +---+---+ | | | +---+---+ + + + +---+---+---+ | dextrose 5%-NaCl 0.45% IV | given by | 03/19/20 | | | | | infusion INTRAPROCEDURE | | 17 1:04 | | | | | CONTINUOUS PRN, Starting Radha | anesthes | PM PDT | | | | | 03/19/17 at 0926, Until Radha | iology | | | | | | 03/19/17 at 1244 | | | | | | + + + +---+---+---+ +---------+ +---+ +---+ | New Bag | 03/19/20 | | 25 mL/hr | | | | 17 9:26 | | | | | | AM PDT | | | | +---------+ +---+ +---+ +---+---+ | | | +---+---+ + + + + +-------+---+ | EPINEPHrine (ADRENALIN) 5mg/250 | Rate/Dos | 03/20/20 | 0.01 | 3.39 | | | mL (0.02 mg/mL) IV infusion | e Verify | 17 4:00 | mcg/kg/m | mL/hr | | | (ADC) 0.01 mcg/kg/min | | PM PDT | in | | | | 113 kg Order-specific weight | | | | | | | (3.39 mL/hr), intravenous, | | | | | | | CONTINUOUS, Starting Thu03/16/17 | | | | | | | at 1130, Until Thu03/20/17 at | | | | | | | 1638 | | | | | | + + + + +-------+---+ + + + +-------+---+ | Rate/Dose Verify | 03/20/20 | 0.01 | 3.39 | | | | 17 3:00 | mcg/kg/m | mL/hr | | | | PM PDT | in | | | + + + +-------+---+ | Rate/Dose Verify | 03/20/20 | 0.01 | 3.39 | | | | 17 2:00 | mcg/kg/m | mL/hr | | | | PM PDT | in | | | + + + +-------+---+ +---+---+ | | | +---+---+ + +-------+ +--------+---+---+ | EPINEPHrine (ADRENALIN) | Given | 03/19/20 | 10 mcg | | | | injection INTRAPROCEDURE PRN, | | 17 12:01 | | | | | Starting Radha 03/19/17 at 1201, | | PM PDT | | | | | Until Radha 03/19/17 at 1244 | | | | | | + +-------+ +--------+---+---+ +---+---+ | | | +---+---+ + +-------+ +--------+---+---+ | fentaNYL citrate (PF) | Given | 03/19/20 | 50 mcg | | | | (SUBLIMAZE) injection | | 17 12:49 | | | | | INTRAPROCEDURE PRN, Starting Radha | | PM PDT | | | | | 03/19/17 at 0949, Until Radha | | | | | | | 03/19/17 at 1244 | | | | | | + +-------+ +--------+---+---+ +-------+ +---------+---+---+ | Given | 03/19/20 | 50 mcg | | | | | 17 12:10 | | | | | | PM PDT | | | | +-------+ +---------+---+---+ | Given | 03/19/20 | 100 mcg | | | | | 17 9:49 | | | | | | AM PDT | | | | +-------+ +---------+---+---+ +---+---+ | | | +---+---+ + + + + + +---+ | heparin in D5W 25,000 Units/250 | Rate/Dos | 03/19/20 | 1,000 | 10 mL/hr | | | mL (100 Units/mL) IV infusion | e Verify | 17 10:00 | Units/hr | | | | (RTU) 1,000 Units/hr (10 mL/hr), | | AM PDT | | | | | intravenous, CONTINUOUS, | | | | | | | Starting 03/17/17 at 0945, | | | | | | | Until Radha 03/19/17 at 1550 | | | | | | + + + + + +---+ + + + + +---+ | Rate/Dose Change | 03/19/20 | 1,000 | 10 mL/hr | | | | 17 9:26 | Units/hr | | | | | AM PDT | | | | + + + + +---+ | Rate/Dose Verify | 03/19/20 | 1,000 | 10 mL/hr | | | | 17 9:00 | Units/hr | | | | | AM PDT | | | | + + + + +---+ +---+---+ | | | +---+---+ + + + + +-------+---+ | insulin regular in NaCl 0.9% IV | Rate/Dos | 03/24/20 | 0.8 | 0.8 | | | infusion (1 unit/mL) 0.1-50 | e Verify | 17 10:36 | Units/hr | mL/hr | | | Units/hr (0.1-50 mL/hr), | | AM PDT | | | | | intravenous, CONTINUOUS, Starting | | | | | | | 03/15/17 at 1400, Until Tue | | | | | | | 03/24/17 at 1123 | | | | | | + + + + +-------+---+ + + + +-------+---+ | Rate/Dose Change | 03/24/20 | 0.8 | 0.8 | | | | 17 8:42 | Units/hr | mL/hr | | | | AM PDT | | | | + + + +-------+---+ | New Bag | 03/24/20 | 0.6 | 0.6 | | | | 17 6:50 | Units/hr | mL/hr | | | | AM PDT | | | | + + + +-------+---+ +---+---+ | | | +---+---+ + +-------+ +---------+---+---+ | PHENYLEPHrine 100 mcg/mL IV | Given | 03/19/20 | 100 mcg | | | | syringe INTRAPROCEDURE PRN, | | 17 12:01 | | | | | Starting [facility] 03/19/17 at 1201, | | PM PDT | | | | | Until [facility] 03/19/17 at 1244 | | | | | | + +-------+ +---------+---+---+ +---+---+ | | | +---+---+ + +---------+ + +--------+---+ | propofol (DIPRIVAN) injection | New Bag | 03/19/20 | 30 | 20.34 | | | INTRAPROCEDURE CONTINUOUS PRN, | | 17 9:26 | mcg/kg/m | mL/hr | | | Starting [facility] 03/19/17 at 0926, | | AM PDT | in | | | | Until [facility] 03/19/17 at 1244 | | | | | | + +---------+ + +--------+---+ +---+---+ | | | +---+---+ + +-------+ +-------+---+---+ | rocuronium (ZEMURON) injection | Given | 03/19/20 | 50 mg | | | | INTRAPROCEDURE PRN, Starting Radha | | 17 12:12 | | | | | 03/19/17 at 1045, Until Radha | | PM PDT | | | | | 03/19/17 at 1244 | | | | | | + +-------+ +-------+---+---+ +-------+ +-------+---+---+ | Given | 03/19/20 | 50 mg | | | | | 17 10:45 | | | | | | AM PDT | | | | +-------+ +-------+---+---+ +---+---+ | | | +---+---+ + + + +---+---+---+ | sodium chloride 0.9% IV | given by | 03/19/20 | | | | | infusion INTRAPROCEDURE | | 17 1:04 | | | | | CONTINUOUS PRN, Starting Radha | anesthes | PM PDT | | | | | 03/19/17 at 1042, Until Radha | iology | | | | | | 03/19/17 at 1304 | | | | | | + + + +---+---+---+ +---------+ +---+---+---+ | New Bag | 03/19/20 | | | | | | 17 10:42 | | | | | | AM PDT | | | | +---------+ +---+---+---+ +---+---+ | | | +---+---+ documented in this encounter"
--- OUTSIDE RECORDS SUMMARY | ~2019-01-22 | XMS | Encounter Summary ---
Demographics + + + | Address | [address] | | | [place] [address] | + + + | Home Phone | | + + + | Preferred Language | Unknown | + + + | Marital Status | | + + + | Confucianist Affiliation | NRP | + + + | Race | White | + + + | Ethnic Group | Not or | + + + Author + + + | Author | [facility] | + + + | Organization | [facility] | + + + | Address | Unknown | + + + | Phone | Unavailable | + + + Support + + + + + | Name | Relationship | Address | Phone | + + + + + | [place] | ECON | [address] | | | | | [place] [address] | | + + + + + Care Team Providers + +------+ + | Care Bench Worker Binding Name | Role | Phone | + +------+ + | Chato Matson MD | PCP | | + +------+ + Encounter Details +--------+ + + + + | Date | Type | Department | Care Team | Description | +--------+ + + + + | 10/19/ | Pharmacy | Outpatient Retail | | | | 2018 | Visit | [facility] | | | | | | [address] | | | | | | [facility] | | | | | | [place], [place] | | | | | | [address] | | | +--------+ + + + [...]
--- OUTSIDE RECORDS SUMMARY | ~2019-01-22 | XMS | Encounter Summary ---
Demographics + + + | Address | [address] | | | [place] [address] | + + + | Home Phone | | + + + | Preferred Language | Unknown | + + + | Marital Status | | + + + | Scientologist Affiliation | NRP | + + + | Race | White | + + + | Ethnic Group | Not or | + + + Author + + + | Author | [facility] | + + + | Organization | [facility] | + + + | Address | Unknown | + + + | Phone | Unavailable | + + + Support + + + + + | Name | Relationship | Address | Phone | + + + + + | [place] Will | ECON | [address] | | | | | [place] [address] | | + + + + + Care Team Providers + +------+ + | Care Bottle And Glass Inspector Name | Role | Phone | + +------+ + | Chato Matson MD | PCP | | + +------+ + Encounter Details +--------+--------+ + + + | Date | Type | Department | Care Team | Description | +--------+--------+ + + + | 05/06/ | Intake | Transfer Center | | N/A | | 2018 | | [address] | | | | | | [place], | | | | | | [place] [address] | | | +--------+--------+ + + + [...]
--- OUTSIDE RECORDS SUMMARY | ~2019-01-22 | XMS | Encounter Summary ---
Demographics + + + | Address | [address] | | | [place] [address] | + + + | Home Phone [...] | [place] | | | | | [address] | | + + + + + Care Team Providers + +------+ + | Care Message And Delivery Service Pricer Name | Role | Phone | + [...] | | | involving | [address] [place] | | | | | [place] | [place] | [place]ocha | | | | | coronary | [address] | [address] | | | | | artery of | Phone: | Phone: | | | | | [place] heart | [phone] | [phone] | | | | | without | Fax: | Fax: | | | | | angina | [phone] | [phone] | | | | | pectoris | | | + + + + + + + Encounter Details +--------+---------+ + + + | Date | Type | Department | Care Team | Description | +--------+---------+ + + + | 11/09/ | Office | [facility] | Randy Figueroa, | Coronary artery | | 2019 | Visit | MED CTR [facility]ARD[facility] | MD [address] | disease involving | | | | REHABILITATION [address] | [place], | [place] coronary | | | | [address] [place] | [place] [address] | artery of [place] | | | | [place] [address] | [phone] | heart without angina | | | | [phone] | | pectoris (Primary | | | [...] of this encounter Progress Jonah Coker-Cheri Kendrick, CELL STRIPPER - 11/09/2018 1000 PSTFormatting of this note might be diff erent from the original. [facility] CARD[facility] REHABILITATION [address] [facility] [address] Cardiac Rehab Date: 11/09/2018 Patient Information Patient Name: Bob Will Date of : 1955 Age: 63 y.o. Encounter Diagnoses Code Name Primary? I25.10 Coronary artery disease involving [place] coronary artery of [place] heart without angina pectoris Yes Number of [...] by Cheri Harvey RRT at 11/09/2018 11:49 PSTdocumented in this encou nter Plan of Treatment [...] | | | | | | [place] [address] | | | | | | [phone] | | | | | | | | +--------+ + + + + documented as of this encounter Visit Diagnoses + + | Diagnosis | + + | Coronary artery disease involving [place] coronary artery of [place] heart without | | angina pectoris - Primary | + + documented in this encounter"
--- OUTSIDE RECORDS SUMMARY | ~2019-01-22 | XMS | Encounter Summary ---
Demographics + + + | Address | [address] | | | [place] [address] | + + + | Home Phone | | + + + | Preferred Language | Unknown | + + + | Marital Status | | + + + | Baptism Affiliation | NRP | + + + [...] | | | | | [place] [address] | | + + + + + Care Team Providers + +------+ + | Care Bus System Operator Name | Role | Phone | [...] | | | | for Health | [facility] | | | | | | and Healing, | Research | | | | | | 8th Floor | [place] | | | | | | [facility] [place] | [place], [place] | | | | | | [address] | [address] | | | | | | Phone: | Phone: | | | | | | [phone] | [phone] | | | | | | Fax: | Fax: | | | | | | [phone] | [phone] | +--------+--------+ + + + + Reason [...] | | | Degeneration | MEDICINE | [place], [place] | | | | | of cervical | [address] | [address] | | | | | | [address] | Phone: | | | | | intervertebr | [place], | [phone] | | | | | al disc | [place] [address] | Fax: | | | | | chronic | Phone: | [phone] | | | | | spine pain | [phone] | | | | | | cervical | Fax: | | | | | | stenosis | [phone] | | +--------+--------+ + + + + Encounter Details +--------+---------+ + + + | Date | Type | Department | Care Team | Description | +--------+---------+ + + + | 02/18/ | Office | [facility] | Sapna Dutta MD | Neck pain; 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 You will greatly increase your [facility] of success if you take medicine [...] a smoking cessation program, such as the [employer] [facility]'s [place] from Smoking program. Set a quit date. [...] in several forms, many of them available [id number]: Nicotine patches Nicotine gum and lozenges Nicotine [...] Smoking: After Your Visit", log into your [employer] account at [email or web address]. You can enter Y522 in the [employer]" search box. Not on [employer]? Review the [employer] section of your After Visit Summary for directions on ho w to sign up. [phone] [employer]. Care instructions adapted under license by [facility] [place]. This care instruction is for use with your licensed healthcar e professional. If you have questions about a medical condition or this instruction, always ask your healthcare professional. [employer] disclaims any warranty or liabili ty for your use of this information. Content Version: 9.3.61546; Last Revised: March 26, 2011 Information about [...] your doctor have elected to try a residential solution, the nerve to the facet j [...] frequently to treat pain of longstanding duration. [facility] Nkrenmrryyuyax signed by Sapna Dutta MD at 02/19/2012 11:42 AM PDT documented in this encounter Progress Notes Sapna Dutta MD - 02/19/2012 10:50 AM PDT [facility] Office Visit Date: 02/19/2012 Mr. Mckeon was referred for Spine Center evaluation by Yesi Guerrero MD [facility] [address] [place] [address]. Reason for consult: Chief Complaint: Chief Complaint [...] offered surgery. 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 He lives with h is of 7 years, and they get along well. 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 He does not feel that he has had effective therapy for this problem. . He is here to "just get rid of the pain." Mr. Mckeon served in the [employer] from 7593[address]7728, including the first [place] war, d [employer]. He was in combat. He does [...] by mouth two times daily. MULTIVITAMIN WITH [id number]-MQ-[id number]-GINKGO 400 MCG-300 MCG-120 MG TAB Take by [...] : 1955 Age: 56 Sex: M Acct: [id number] Loc: MRI Exam Date: 11/05/2011 Status: REG REF Radiology No: Unit No: [id number] EXAM# TYPE/EXAM RESULT CPT CODE [id number] MRI/CERVICAL SPINE W/O CONTRAST [id number] EXAM: MRI CERVICAL SPINE, Nov 05, 2011 01:04:00 PM. CLINICAL HISTORY: Chronic neck and left arm pain. COMPARISON: Cervical spine MRI from [facility] on 02/14/2010. TECHNIQUE: T1 and T2 [...] consider this. Mr. Mckeon cannot come to [facility] for treatment on any kind of regular [...] branch denerva tion option SAPNA DUTTA MD [facility] documented in this encounter Plan [...] | 1955 Age: 56 Sex: M Acct: [id number] Loc: MRI Exam Date: | | | 11/05/2011 Status: REG REF Radiology No: Unit No: [id number] | | | EXAM# TYPE/EXAM RESULT CPT CODE [id number] MRI/CERVICAL SPINE W/O | | | CONTRAST [id number] EXAM: MRI CERVICAL SPINE, Nov 05, 2011 01:04:00 | | | PM. CLINICAL HISTORY: Chronic neck and left arm pain. | | | COMPARISON: Cervical spine MRI from [facility] on | | | 02/14/2010. TECHNIQUE: [...]
--- OUTSIDE RECORDS SUMMARY | ~2019-01-22 | XMS | Encounter Summary ---
Demographics + + + | Address | [address] | | | [place] [address] | + + + | Home Phone [...] | [place] | | | | | [address] | | + + + + + Care Team Providers + +------+ + | Care Tube Inspector Name | Role | Phone | [...] | Required | n | artery | [place] | Rehabilitatio | | | | | disease | [address] | [address] | | | | | involving | [address] [place] | | | | | [place] | MAROK MCGUIRE | [place] Her[place] | | | | | coronary | [address] | [address] | | | | | artery of | Phone: | Phone: | | | | | [place] heart | [phone] | [phone] | | | | | without | Fax: | Fax: | | | | | angina | [phone] | [phone] | | | | | pectoris | | | + + + + + + + Encounter Details +--------+---------+ + + + | Date | Type | Department | Care Team | Description | +--------+---------+ + + + | 10/28/ | Office | [facility] | Randy Figueroa, | Coronary artery | | 2019 | Visit | MED CTR CARD[facility] | MD [address] | disease, angina | | | | REHABILITATION [address] | [place], | presence | | | | [address] [place] | [place] [address] | unspecified, | | | | [place] [address] | [phone] | unspecified vessel | | | | [phone] | | or lesion type, | | | | | | unspecified whether | | | | | | [place] or | | | | | | [...] Maria Esther Fields RN - 10/28/2018 1000 PST [facility] C[facility] REHABILITATION [address] [facility] [address] Cardiac Rehab Date: 10/28/2018 Patient Information Patient Name: Bob Will Date of : 1955 Age: 62 y.o. Encounter Diagnoses Code Name Primary? I25.10 Coronary artery disease, angina presence unspecified, unspecified vessel or lesi on type, unspecified whether [place] or transplanted heart Yes Z98.61 Post PTCA [...] 10/28/2018 13:39 Patient Name: Bob Will/: 1955/ ly signed by Maria Esther Fields RN at 10/28/2018 13:43 PSTdocumented in this encounter Plan of Treatment [...] [address] | | | | | | [place], | | | | | | [place] [address] | | | | | | [phone] | | | | | | | | +--------+ + + + + documented as of this encounter Visit Diagnoses + + | Diagnosis | + + | Coronary artery disease, angina presence unspecified, unspecified vessel or lesion | | type, unspecified whether [place] or transplanted heart - Primary | + + | Post PTCA Postsurgical percutaneous transluminal coronary angioplasty status | + + documented in this encounter"
--- OUTSIDE RECORDS SUMMARY | ~2019-01-22 | XMS | Encounter Summary ---
Demographics + + + | Address | [address] [place] [address] [address] | | | [place] [address] | + + + | Home Phone | | + + + | Preferred Language | Unknown | + + + | Marital Status | | + + + | Religion Affiliation | Unknown | + + + | Race | Unknown | + + + | Ethnic Group | Unknown | + + + Author + + + | Author | Cassandra Surfly | + + + | Organization | [facility] | + + + | Address | Unknown | + + + | Phone | Unavailable | + + + Support + + +---------+ + | Name | Relationship | Address | Phone | + + +---------+ + | Venice Mckeon | ECON | Unknown | | + + +---------+ + Care Team Providers + +------+ + | Care Data Mining Analyst Name | Role | Phone | [...] heart | | 2019 | Orders | ECHO | [address] | failure, unspecified | | | | | [place], [place] | HF chronicity, | | | | | [address] | unspecified heart | | | | [...] Treatment Not on fileas of this encounter Results ECHO outside interpretation standard [...] RON MCKEON Date of : 1955 | [facility] | | Performing Physician: Rocio | RADIOLOGY | | [place] | | | | | | INDICATIONS [...] MV A Rohan: 0.86 m/s MV Dec [place]: 3.26 m/s2 | | | MV DecT: [...] | 21.47 mmHg TR Vmax: 2.31 m/s Title Examiner: ANJANA Authenticated | | | by: Rocio Pearl Report Date/Time: 11-04-2018 19:16:25 | | + + + + + | Procedure Note | + + | Sebastian, Rad Results In - 11/04/2018 7:20 PM PST Patient Name: Belkys MCKEON of | | : 5Accession: [id number] Physician: Rocio | | Alsamara INDICATIONS------ | [...] | 5.92 cmLVPWd: 1.01 cmLVOT Area: 3.17 [id number] Diam: 2.01 cm%FS: 15.56 %EF(Teich): | | [...] mlLAESV Index (A-L): 42.88 ml/m2LAAs A2C: 24.92 [id number] A-L | | A2C: 95.08 mlLALs A2C: 5.54 cmLAAs A4C: 19.37 ql1EXTDK A-L A4C: 70.66 mlLALs | | A4C: 4.50 cmRAAs: 18.79 us3KKBAA A-L: 67.38 mlRAESV MOD: 63.17 mlRALs: 4.44 | | cmTAPSE: 2.12 cmAV maxP.82 mmHgAV meanP.56 mmHgAV Vmax: 1.30 m/Emil | | Vmean: 0.88 m/Emil VTI: 25.33 cmAVA Vmax: 2.55 cm2AVA (VTI): 2.49 pp9LZLY (Vmax): | | 0.00 cm2/m2AVAI (VTI): 0.00 cm2/m2LVOT maxP.40 mmHgLVOT meanP.91 | | mmHgLVSI Dopp: 29.85 ml/m2LVSV Dopp: 63.29 mlLVOT Vmax: 1.04 m/sLVOT Vmean: 0.64 | | m/sLVOT VTI: 19.92 cmMV A Rohan: 0.86 m/sMV Dec [place]: 3.26 m/s2MV DecT: 218.32 | | msMV E Rohan: 0.71 m/sMV E/A Ratio: 0.82 MV PHT: 63.31 msMVA By PHT: 3.47 | | ax4Yxlpry e': 0.04 m/sSeptal E/e': 15.51 Lateral e': 0.06 m/sLateral E/e': 10.91 | | RAP: 5 mmHgRVSP: 26.47 mmHgTR maxP.47 mmHgTR Vmax: 2.31 m/sSonographer: | | DBSAuthenticated by: Rocio Alsthree bridgesraReport Date/Time: 11-04-2018 19:16:25IMPRESSION:1. | | This was [...] A Rohan: 0.86 m/s | |MV Dec [place]: 3.26 m/s2 | |MV DecT: 218.32 ms [...] |TR Vmax: 2.31 m/s | | | |Title Examiner: ANJANA | |Authenticated by: Rocio Licoeloy | |Report Date/Time: 11-04-2018 19:16:25 | | [...] + + + + + | MARI ADLER | [address] | [place] [address] | | + + + + + in this encounter Visit Diagnoses + + | Diagnosis | + + | Congestive heart failure, unspecified HF chronicity, unspecified heart failure type | | (HCC) | + +"
--- OUTSIDE RECORDS SUMMARY | ~2019-01-22 | XMS | Encounter Summary ---
Demographics + + + | Address | [address] | | | [place] [address] | + + + | Home Phone | | + + + | Preferred Language | Unknown | + + + | Marital Status | | + + + | Shinto Affiliation | NRP | + + + | Race | White | + + + | Ethnic Group | Not or | + + + Author + + + | Author | [facility] | + + + | Organization | [facility] | + + + | Address | Unknown | + + + | Phone | Unavailable | + + + Support + + + + + | Name | Relationship | Address | Phone | + + + + + | Venice Mckeon | ECON | [address] | | | | | [place] [address] | | + + + + + Care Team Providers + +------+ + | Care Hydrogen Treater Name | Role | Phone | + +------+ + | Chato Matson MD | PCP | | + +------+ + Reason for Referral Consultation (Routine) +--------+--------+ + + + + | Status | Reason | Specialty | Diagnoses / | Referred By | Referred To | | | | | Procedures | Contact | Contact | +--------+--------+ + + + + | Closed | | Physical | Diagnoses | Chanelle, | [facility] | | | | Therapy | NSTEMI | Lala A, | [facility] | | | | | (non-ST | PA-C [address] | [address] | | | | | elevated | [address] | [address] | | | | | myocardial | [address] | Mailcode: | | | | | infarction) | Rd | [facility] | | | | | (HCC) | [place], [place] | for [facility] | | | | | Stenosis of | [address] | and Healing | | | | | coronary | Phone: | [place], [place] | | | | | artery | [phone] | [address] | | | | | stent, | Fax: | Phone: | | | | | initial | [phone] | [phone] | | | | | encounter | | Fax: | | | | | Procedures | | [phone] | | | | | CONSULT TO | | | | | | | CARDIAC | | | | | | | REHAB - [facility] | | | +--------+--------+ + + + [...] + + | 10/10/ | Hospital | [address] | Khurram Bedoya | | | 2018 - | Encounter | [address] | MD Kari [address] | | | | | [address] [place] [address] | [address] | | | 10/17/ | | [place], [place] | [place] | | | 2018 | | [address] | [address] | | | | | [phone] | [phone] | | | | | | | [...] Pressure | 101/65 | 10/17/2017 11:44 AM | | | | | PST | | + + + + + | Pulse | 80 | 10/17/2017 11:44 AM | | | | | PST | | + + + + + | Temperature | 36.5 C (97.7 F) | 10/17/2017 11:44 AM | | | | | PST | | + + + + + | Respiratory Rate | 18 | 10/17/2017 11:44 AM | | | | | PST | | + + + + + | Oxygen Saturation | 96% | 10/17/2017 11:44 AM | | | | | PST | | + + + + + | Inhaled Oxygen | - | - | | | Concentration | | | | + + + + + | Weight | 88.4 kg (194 lb 14.2 | 10/17/2017 2:21 AM | | | | oz) | PST | | + + + + + | Height | 175.3 cm (5' 9") | 10/12/2017 8:11 AM | | | | | PST | | + + + + + | Body Mass Index | 28.78 | 10/12/2017 8:11 AM | | | | | PST | | + + + + + documented in this encounter Functional Status + + [...] + + documented as of this encounter Discharge Summaries Lala Schofield PA-C - 10/17/2017 2:23 PM PSTFormatting of this note might be different f rom the original. INPATIENT CARDIOLOGY DISCHARGE SUMMARY PCP: Chato Matson MD Referring Physician & Institution: Other Dictation Primary/Outpatient Pattern Data Operator: Dr Jamal Guerrero MD Inpatient Attending Physician: Khurram Bedoya MD Author/Discharging Provider: LALA SCHOFIELD PA-C Admission Date: 10/10/2017 Discharge Date: 10/17/2017 Active Hospital Problems 1) *NSTEMI (non-ST elevated myocardial infarction) (HCC) 2) Coronary artery disease 3) Stenosis of coronary artery stent 4) Ischemic cardiomyopathy 5) Chronic systolic congestive heart failure (HCC) 7) Encounter for insertion of cardiac resynchronization therapy defibrillator (ANA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) 8) Paroxysmal atrial flutter (HCC) 9) Influenza, pneumonia 10) Prediabetes 11) Tobacco use Procedures 10/15/17: Successful percutaneous coronary intervention to the ostial left circumflex. One 3.0 x 18 mm Resolute [place] drug-eluting stent. Successful percutaneous coronary transluminal angiopla sty of the distal left main extending into the left anterior descending coronary artery with final kissing balloon inflation with a 3.5 mm noncompliant and a 2.5 mm compliant balloon. 10/16/17: 1) EP study with VT induction 2) ANA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 implantation Reason For Admission: Consideration of complex PCI vs CABG for in-stent restenosis of LCx and LM/LAD stents Hospital Course: Please see H&P for hospital course at [facility] prior to transfer to [facility]. Ron Mckeon is a 61 year old [...] treatment who was admitted in transfer from [facility] on 10/11 for consideration of PCI vs [...] support--had one 3.0 x [address] [place] dr ug-eluting stent placed in ostial L Cx in addition to transluminal angioplasty of the distal left main extending into the left anterior descending coronary artery with final kissing ba lloon inflation with a 3.5 mm noncompliant and a 2.5 mm compliant balloon. He did well with this procedure, then went for an EP study the following day on 10/16. VT was induced, therefor e a ANA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 was implanted. He is discharging home in good condition with follow up in 1 week w ith his Pattern Data Operator. The following problems were addressed this hospitalization: [...] uenza and underwent a coronary angiogram at [facility] which revealed in stent re-stenosis of both LM into LAD and LCx stents, mild disease of RCA. Transferred to [facility] for further onel luation. CTS was consulted for consideration of CABG vs complex PCI. Due to nonviable myocardium archie wn on cardiac PET and resting NM perfusion study, PCI was chosen over CABG. On 10/15 he underw ent angiography/PCI with impella support--had one 3.0 x 18 mm Resolute [place] drug-eluting chery nt placed in ostial L [...] II, Stage C. Etiology ischemic. TTE at [facility] showed EF 30-35%, mildly reduced RV function, [...] the past --ICD: placed by EP 10/16, ANA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 -- will need 1 week f/u for wound check, then 1 month device check with EP -- f/u with outpatient supervisor [employer] 2-4 weeks # Paroxysmal Aflutter Noted Aflutter with RVR at admission in [facility]; treated with amiodarone infusion. He w as transitioned to oral amiodarone and maintained normal rhythm. Given that the aflutter occ urred in setting of severe sepsis, will not continue amiodarone or warfarin. If he has recur rent arrhythmia, this will be noted on ANA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 and could consider anticoagulation at that time . However, he requires DAPT and has a possible history of recent GIB, so triple therapy shou ld be avoided if not necessary --rate control: metoprolol as above --anticoagulation: holding warfarin for now given DAPT and h/o GI B. Discuss further with outpatient supervisor [employer]. May consider holding anticoagulation unless he demonstrates recurrent arrhythmia # Influenza type A - resolved # Community acquired pneumonia # Severe sepsis with shock, resolved Pt presented to [facility] 10/03 found to be Flu Apositive with [...] sepsis management , fluid resuscitation. EGD at [facility] on 10/05 showed gastritis, duodenitis, linear ulcerations [...] first post-hospitalization visit: 1. Wound check from ANA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 placement 2. Consider restarting lisinopril if BPs improve and Cr is stable 3. Instructed pt to restart metformin on 08/18 but reevaluate based on Cr Schedule the following appointment(s) when you get home KULWINDER Stevens. Go on 10/19/2017. Why: at 1:15pm for heart failure follow up, to re-check labwork, and to have your wound ch ecked Contact information HEART [address] [address] KULWINDER Stevens. Go on 11/11/2017. Why: at 9:30am for cardiology follow up and to have your device checked Contact information HEART [address] [address] Medication List START taking these medications Childrens [...] Resume on 10/19. Indications: type 2 diabetes [facility] metoprolol succinate 25 mg Tb24 Commonly known [...] 0%. 8.Stent: 3.0 x 18 mm Resolute Alvaro drug-eluting stent. Lesion #2: 1.Lesion location: Distal [...] circumflex. One 3.0 x 18 mm Resolute [place] drug-eluting stent. Successful percutaneous coronary transluminal angiop [...] ths. You should be cleared by your supervisor [employer] prior to returning to driving. If you [...] How to Contact us: Cardiology Division Office [phone] Cardiology Patient Phone Line EDUIN Shepherd Dr., Dr., Dr., PA-C Connie Barber, NP Karen Paladino, RN Margaret Kleist, RN Evenings or weekends: Ask for on-call supervisor [employer] Drug Eluting Stent 1. Please take Plavix (clopidogrel) everyday which helps to keep the stent open. You need t o take it every day for one year and do not stop unless you are told to by your supervisor [employer] . 2. Take an aspirin 81 mg once daily indefinitely. 3. You were referred for cardiac rehab and should start now that you have had a stent place d. 4. Follow up with your supervisor [employer] within 2-4 weeks. 5. No elective surgeries [...] smoker.Patient counseled on importance of smoking cessation [facility] hospitalization Last vitals: BP: 101/65 (10/17/17 1144) Pulse: 80 (10/17/17 1144) Resp: 18 ( 1144) Weight: 88.4 kg (194 lb 14.2 oz) (10/17/17 0221) Discharging Provider: LALA SCHOFIELD PA-C, Cardiovascular Medicine Attending Physician: Khurram Bedoya MD, Cardiovascular Medicine Lala Schofield PA-C Instructor of Cardiovascular Medicine [facility] Cardiovascular [place] [facility] I spent 36 minutes in coordination of care and zkzv-[id number] with the patient and/or their s urrogate in which the problems above were discussed Associated attestation - Khurram Bedoya MD - 10/17/2017 3:22 PM PSTCardiology Anthony souza I have seen and examined Mr. Mckeon and [facility] the [facility]. I reviewed the practitioner's note above and agree with the documented f indings and plan of care. KHURRAM BEDOYA MD Director of the [facility] Hypertrophic Cardiomyopathy Gate Operator of Echocardiography Hydramatic Specialistoncology navigator Division of Cardiovascular Medicine documented in this encounter Discharge Instructions AttachmentsThe following attachments cannot be sent through Care Everywhere.WOUND CHECK (EN GLISH)ICD (IMPLANTABLE CARDIOVERTER-DEFIBRILLATOR): POST-OP (GEORGIAN)PAIN POST-SURGERY: ACUT E (GEORGIAN)OPIOIDS: SAFE USE (GEORGIAN)OPIOIDS: STORAGE AND DISPOSAL: GENERAL INFO (GEORGIAN)d ocumented in this encounter Medications at Time of [...] | 0 | 07/27/20 | | | oral | mouth once [...] documented as of this encounter Progress Notes Amarilis [...] Information: Implant date: 10/16/17 BiV-ICD pulse generator: Seismometer Operator: MedXero Model number: [id number] Serial number: [id number] RA lead: Seismometer Operator: Medtronic Model number: 5076-52 Serial number: [id number] RV lead: Seismometer Operator: Medtronic Model number: [id number] Serial number: [id number] CS lead: Seismometer Operator: Medtronic Model number: [id number] Serial number: [id number] ICD PROGRAMMING: Bradycardia Parameters: Mode: DDD Lower rate limit: 50 Upper rate limit: 130 Output (A): 3.5 V at 0.4 ms Sensitivity (A): 0.3 mV Output (RV): 3.5 V at 0.4 ms Sensitivity (RV): 0.3 mV Output (CS): 2.0 V at 0.4ms Tachycardia Parameters: VT zone: 177-200 Therapies: Monitor VF zone: >200 bpm Therapies: 35 J x 6 PACING PERCENTAGE: AP: <0.1% SUPERINTENDENT GAS DISTRIBUTION: 98.3% EPISODES SINCE IMPLANT: none. TODAY'S TESTING [...] and Device check in one month at [facility] device clinic. I have reque sted our [...] MD Electrophysiology Fellow Division of Cardiovascular Medicine [facility] Pager [phone] signed by Lauro Jorgensen MD at 10/18/2017 12:04 PM PST Associated attestation - Lauro Jorgensen MD - 10/18/2017 12:04 PM PSTElectrophysiolog y Attending I have seen and examined Mr. Mckeon and discussed the patient's management with the resi dent and/or fellow. I reviewed the housestaff note above and agree with the documented find ings and plan of care. He is doing well. For regular device follow up. Lauro Jorgensen M.D. Director, Electrophysiology Biodiesel Division Managercnc router operator [facility] [place] [address] Amarilis Castle MD - 10/17/2017 10:53 AM [...] hs. You should be cleared by your supervisor [employer] prior to returning to driving. ? If [...] through the full body scanner at the [facility], but only after 6 weeks post defibrillator [...] How to Contact us: Cardiology Division Office [phone] Cardiology Patient Phone Line EDUIN Shepherd Dr., Dr., Dr., PA-C Connie Barber, NP Karen Paladino, ALFONSO Yung RN Evenings or weekends: Ask for on-call cardiologist Amarilis Collazo MD - 10/16/2017 6:20 PM PSTPRELIMINARY PROCEDURE NOTE Date and Time: 10/16/17 Name(s) of Primary Surgeon/Physician and Assistants: Regis Pre-Operative Diagnosis: Ischemic cardiomyopathy with reduced EF 30-35% Post-Operative Diagnosis: Same Name of Procedure Performed: 1) EP study with VT induction 2) ANA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 Indication for the procedure: Ischemic cardiomyopathy with [...] MD Electrophysiology Fellow Division of Cardiovascular Medicine [facility] Pager [phone] ala Schofield PA-C - 10/16/2017 2:07 PM PST IP Cardiology Progress Note Date: 10/16/2017 Hospital Day: 6 Attending Pattern Data Operator: Khurram Bedoya MD Provider: LALA SCHOFIELD PA-C Primary Care Provider: Chato Matson MD Outpatient Pattern Data Operator: Dr Jamal Guerrero MD ID:Ron Mckeon is a 61 year old male with past medical history of CAD s/p anterior CHERY AR 03/2017 with cardiogenic shock s/p PCI with ANY to LM/LAD and LCx with ECMO support, systo lic heart failure (EF 20-25%), ischemic cardiomyopathy, hypertension, Atrial flutter, prior tobacco use, recent JAVON thrombus on anticoagulation, Influenza A with septic shock (10/03) re quiring intubation and mechanical ventilation, HAP on treatment who was admitted in transfer from [facility] on 10/11 for consideration of PCI vs [...] cannot appreciate murmur and sounds regular. J SUPERINTENDENT GAS DISTRIBUTION not above clavicle at 90 degrees Gastrointestinal: [...] found for: FREET4, TSH, TPOAB, THYROGLOB, THYROGLOBAB, [id number] Lab Results Component Value Date A1C 5.9 [...] 8. Stent: 3.0 x 18 mm Resolute Alvaro drug-eluting stent. Lesion #2: 1. Lesion location: [...] circumflex. One 3.0 x 18 mm Resolute [place] drug-eluting stent. Successful percutaneous coronary transluminal angiopla [...] seen on myocardial rest perfusion Tc-Sestamibi, ronan hi with nonviable myocardium EGD 10/05/17 at [facility] [...] uenza and underwent a coronary angiogram at [facility] which revealed in stent re-stenosis of both LM into LAD and LCx stents, mild disease of RCA. Transferred to [facility] for further onel luation. CTS was consulted for consideration of CABG vs complex PCI. Due to nonviable myocardium archie wn on cardiac PET and resting NM perfusion study, PCI was chosen over CABG. On 10/15 he underw ent angiography/PCI with impella support--had one 3.0 x 18 mm Resolute Alvaro drug-eluting chery nt placed in ostial L [...] II-III, Stage C. Etiology ischemic. TTE at [facility] showed EF 30-35%, mildly reduced RV function, [...] check with EP -- f/u with outpatient supervisor [employer] 2-4 weeks # Paroxysmal Aflutter Noted Aflutter with RVR at admission in [facility]; treated with amiodarone infusion. Now maintaining SR on oral amio. CHADS-VASC 3, HAS-BLED 3. Was previously on heparin infusion fo r NSTEMI but this has been stopped and AC was not started in anticipation of PCI. --rate control: carvedilol as above --rhythm control: continue amiodarone 200 mg daily for now, to be reassessed b y outpatient supervisor [employer] --anticoagulation: holding warfarin for now given DAPT and h/o GIB. Discuss fu rther with outpatient supervisor [employer]. May consider holding anticoagulation unless he demonstra janeth recurrent arrhythmia # Influenza type A - resolved # Community acquired pneumonia # Severe sepsis with shock, resolved Pt presented to [facility] 10/03 found to be Flu A positive [...] sepsis management , fluid resuscitation. EGD at [facility] on 10/05 showed gastritis, duodenitis, linear ulcerations [...] patient was interviewed and examined by attending supervisor [employer] nut [employer], Dr. Khurram Bedoya MD , who is in agreement with above described findings, assessment and plan. LALA SCHOFIELD PA-C Cardiovascular Medicine [facility] Pager [phone] I spent 36 minutes in coordination of care and dbvb-jn-vofr with the patient and/or their surrogate in which the following was discussed: plan for EP study with possibility of ICD im plantation, heart failure, blood pressure, discharge planning Associated attestation - Khurram Bedoya MD - 10/16/2017 4:39 PM PSTOne by mouth daily ^30^12^t John Amaya MD - 10/15/2017 7:12 PM PST POST-CATH Groin Check S: No complaints Pertinent [...] complications following procedure. Continue current post-cath car e. JOHN AMAYA MD [address] [place] [address] Ruth Ann Aguilar PA-C - 0 10/15/2017 3:36 PM PST BRIEF ELECTROPHYSIOLOGY PROGRESS NOTE Date: 10/15/17 Hospital [...] on 10/13/17 and the study was read showin winsome that "extensive severe perfusional defect involving approximately [...] NPO @ [facility] - Hold heparin products Ruht Ann Carvajal PA-C 10/15/17 Associated attestation - Sophie Darby MD - 10/15/2017 4:45 PM PSTI have discussed this case with Ms. Alena CHACON, seen the patient, and agree with the plan. Successful PCI of dista l LM and circ and LAD. EPS v-stim with possible ANA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 tomorrow (QRS today is 152 atypical LB BB). See yesterdays attestation Sophie Darby MD Cardiovascular Medicine - Electrophysiology [facility] Cardiovascular [place] [facility] Arya Low MD - 10/15/2017 1:05 PM PSTCARDIOLOGY PRELIMINARY PROCEDURE NOTE Primary Care Provider: Chato Matson MD Referring Provider: Other Dictation [employer] Staff: Tejal Modi M.D. Procedure(s): 1. Coronary angiography 2. Percutaneous coronary intervention 3. Left heart catheterization 4. Impella placement and removal 5. Moderate conscious sedation Indications: Unstable angina, planned LM intervention Access: 14-Rwandan RFA 6-Rwandan RFV 7-Rwandan LFA Post Procedure Access:No evidence of significant hematoma or bleeding Estimated [...] medical therap y Referral to cardiac rehabilitation homs, CLAUDIO Patterson - 10/15/2017 12:56 PM PST IP Cardiology Progress Note Date: 10/15/2017 Hospital Day: 5 Attending Pattern Data Operator: Khurram Bedoya MD Provider: LALA SCHOFIELD PA-C Primary Care Provider: Chato Matson MD Outpatient Pattern Data Operator: Dr Jamal Guerrero MD ID:Ron Mckeon is a 61 year old male with past medical history of CAD s/p anterior CHREY AR 03/2017 with cardiogenic shock s/p PCI with ANY to LM/LAD and LCx with ECMO support, systo lic heart failure (EF 20-25%), ischemic cardiomyopathy, hypertension, Atrial flutter, prior tobacco use, recent JAVON thrombus on anticoagulation, Influenza A with septic shock (10/03) re quiring intubation and mechanical ventilation, HAP on treatment who was admitted in transfer from [facility] on 10/11 for consideration of PCI vs [...] 1 dr wong, 1 drop, Both Eyes, PRN aspirin chewable [...] cannot appreciate murmur and sounds regular. J SUPERINTENDENT GAS DISTRIBUTION not above clavicle at 90 degrees Gastrointestinal: [...] - Refreshable Recent Labs 10/13/17 0405 10/14/17 0424 10/15/17 [...] found for: FREET4, TSH, TPOAB, THYROGLOB, THYROGLOBAB, [id number] Lab Results Component Value Date A1C 5.9 [...] uenza and underwent a coronary angiogram at [facility] which revealed in stent re-stenosis of both LM into LAD and LCx stents, mild disease of RCA. Transferred to [facility] for further onel luation. CTS was consulted for consideration of CABG vs complex PCI. Due to nonviable myocardium archie wn on cardiac PET and resting NM perfusion study, he will proceed with PCI tomorrow with Imp tania support. -- to [employer] today for PCI with impella support --ASA [...] II-III, Stage C. Etiology ischemic. TTE at [facility] showed EF 30-35%, mildly reduced RV function, [...] Noted Aflutter with RVR at admission in [facility]; treated with amiodarone infusion. Now maintaining SR [...] sepsis with shock, resolved Pt presented to [facility] 10/03 found to be Flu A positive [...] sepsis management , fluid resuscitation. EGD at [facility] on 10/05 showed gastritis, duodenitis, linear ulcerations [...] patient was interviewed and examined by attending supervisor [employer], Dr. Khurram Bedoya MD , who is in agreement with above described findings, assessment and plan. LALA SCHOFIELD PA-C Cardiovascular Medicine [facility] Pager [phone] I spent 38 minutes in coordination of care and bsst-ww-dzmp with the patient and/or their surrogate in which the following was discussed: plan for PCI with impella support today, hea rt failure, anticoagulation for aflutter, discharge planning Associated attestation - Khurram Bedoya MD - 10/15/2017 1:15 PM PSTCardiology Attendi ng I have seen and examined Mr. Mckeon and discussed the patient's management with the [place] [facility] practitioner. I reviewed the practitioner's note above and agree with the documented f indings and plan of care. KHURRAM BEDOYA MD Director of the [facility] Hypertrophic Cardiomyopathy Gate Operator of Echocardiography Hydramatic Specialistoncology navigator Division of Cardiovascular Medicine Ruth Ann Carvajal PA-C - 10/14/2017 12:05 PM PST ELECTROPHYSIOLOGY PROGRESS NOTE Date: 10/14/17 Hospital Day: [...] thickening is segmentally abnormal. 10/03/17: TTE @ [facility] Summary The number of aortic valve leaflets [...] remain. CARDIAC CATHETERIZATION: DATE OF PROCEDURE:10/03/17 @ [facility] CORONARY ANGIOGRAPHY DOMINANCE: Right LEFT MAIN ARTERY: [...] about Vf/VT risk in both short and senior care. Given NSVT and EF 30-35%, we will therefore proceed to an EP study with implantation o f an ICD if she has inducible VT. Given atypical LBBB QRS 147 and current functional status 3 (prior 1-2 by report) and concern for lack of EF recovery, we would plan for ANALYST PROGRAMMER with His- bundle lead if needed. Sophie Darby MD Cardiovascular Medicine - Electrophysiology [facility] Cardi[facility] [place] [facility] Lala Schofield PA-C - 10/14/2017 11:58 AM PSTFormatting of this note might be different f rom the original. IP Cardiology Progress Note Date: 10/14/2017 Hospital Day: 4 Attending Pattern Data Operator: Khurram Bedoya MD Provider: LALA SCHOFIELD PA-C Primary Care Provider: Chato Matson MD Outpatient Pattern Data Operator: Dr Jamal Guerrero MD ID:Ron Mckeon is a 61 year old male with past medical history of CAD s/p anterior CHERY AR 03/2017 with cardiogenic shock s/p PCI with ANY to LM/LAD and LCx with ECMO support, systo lic heart failure (EF 20-25%), ischemic cardiomyopathy, hypertension, Atrial flutter, prior tobacco use, recent JAVON thrombus on anticoagulation, Influenza A with septic shock (10/03) re quiring intubation and mechanical ventilation, HAP on treatment who was admitted in transfer from [facility] on 10/11 for consideration of PCI vs [...] Very t hankful of care provided at [facility] Current Inpatient Medications: acetaminophen (TYLENOL) tablet 650 [...] found for: FREET4, TSH, TPOAB, THYROGLOB, THYROGLOBAB, [id number] Lab Results Component Value Date A1C 5.9 [...] uenza and underwent a coronary angiogram at [facility] which revealed in stent re-stenosis of both LM into LAD and LCx stents, mild disease of RCA. Transferred to [facility] for further onel luation. CTS was consulted [...] II-III, Stage C. Etiology ischemic. TTE at [facility] showed EF 30-35%, mildly reduced RV function, [...] Noted Aflutter with RVR at admission in [place]; treated with amiodarone infusion. Now maintaining SR [...] sepsis with shock, resolved Pt presented to [place] 10/03 found to be Flu A positive [...] sepsis management , fluid resuscitation. EGD at [place] on 10/05 showed gastritis, duodenitis, linear ulcerations [...] patient was interviewed and examined by attending supervisor [employer], Dr. Khurram Bedoya MD , who is in agreement with above described findings, assessment and plan. LALA SCHOFIELD PA-C Cardiovascular Medicine [facility] Pager [phone] I spent 42 minutes in coordination of care and uker-vu-fnej with the patient and/or their s urrogate in which the following was discussed: results of nuc med and PET scan studies indic ating no viable myocardium and thus will plan for complex PCI tomorrow Associated attestation - Khurram Bedoya MD - 10/14/2017 9:29 PM PSTCardiology Attendi libby I have seen and examined Mr. Mckeon and discussed the patient's management with the [place] [facility] practitioner. I reviewed the practitioner's note above and agree with the documented f indings and plan of care. KHURRAM BEDOYA MD Director of the [facility] Hypertrophic Cardiomyopathy Gate Operator of Echocardiography Hydramatic Specialistoncology navigator Division of Cardiovascular Medicine Ashleigh Alvarez ACNP - 10/13/2017 8:33 AM PSTFormatting of this note might be diff erent from the original. Cardiology Inpatient Progress Note Date: 10/13/2017 Hospital Day: 3 Primary Care Physician: Chato Matson MD Outpatient Pattern Data Operator: Dr Jamal Guerrero MD Attending Pattern Data Operator: Khurram Bedoya MD Provider: KULWINDER Grace ID: [...] who was admitted in transfe r from [place] on 10/11 for consideration of PCI vs [...] 0345 04/01/17 0343 04/02/17 0504 10/11/17 0631 10/12/17 0701 [...] 03/31/17 0345 04/01/17 0343 04/02/17 0504 10/11/17 1243 10/12/17 0701 [...] found for: FREET4, TSH, TPOAB, THYROGLOB, THYROGLOBAB, [id number] Lab Results Component Value Date A1C 5.9 [...] exam dated, 03/30/2017, the LVEF is similar. [facility] CXR 10/11/17: FINDINGS: The increased lung volumes. [...] flow to distal LAD 10/03/17 Echo at [place]: The number of aortic valve leaflets cannot [...] stents # NSTEMI Pt was admitted to [place] 10/03 with hypoxemic respiratory failure, severe sepsis and s hock thought to be due to influenza type A as below. Noted to have new LBBB, NSTEMI with pea k trop 26. Underwent coronary angiogram at [place] 10/04 which revealed in stent re-steno sis of both LM into LAD and LCx stents, mild disease of RCA. Transferred to [facility] for further evaluation. TTE showed LV function [...] for PCI (likely with Dr Modi with [facility] a support) which would require repeat bolus [...] II-III, Stage C. Etiology ischemic. TTE at [facility] showed EF 30-35%, mildly reduced RV function, mild dilation of ascending aorta. LVEDP 14 mm hg during catheterization 10/04 ( in setting of hypotension). Pt was diuresed at [place], appears euvolemic on exam. Pt wa s [...] Noted Aflutter with RVR at admission in [place], treated with amiodarone infusion, bertha alonzo SR at this time. CHADS-VASC 3, HAS-BLED [...] admitted with acute dyspnea, respiratory failure to [place] 10/03 found to be Flu A p [...] sepsis management , fluid resuscitation. EGD at [place] on 10/05 showed gastritis, duodenitis, linear ulcerations [...] patient was interviewed and examined by attending supervisor [employer], Dr. Khurram Bedoya MD , who is in agreement with above described findings, assessment and plan. KULWINDER Grace Instructor of Medicine [facility] [place] Pager [phone] I spent 33 minutes in coordination of care and ubae-uk-dlqc with the patient and/or their s urrogate in which management of CAD, imaging plan and consultation with radiology, revascula rization treatment was discussed Associated attestation - Khurram Bedoya MD - 10/13/2017 2:48 PM PSTCardiology Attendi I have seen and examined Mr. Mckeon and discussed the patient's management with the [facility] practitioner. I reviewed the practitioner's note above and agree with the documented f indings and plan of care. KHURRAM BEDOYA MD Director of the [facility] Hypertrophic Cardiomyopathy Gate Operator of Echocardiography Hydramatic Specialistoncology navigator Division of Cardiovascular Medicine Ashleigh Alvarez ACNP - 10/12/2017 8:02 AM PSTFormatting of this note might be diff erent from the original. Cardiology Inpatient Progress Note Date: 10/12/2017 Hospital Day: 2 Primary Care Physician: Chato Matson MD Outpatient Pattern Data Operator: Dr Jamal Guerrero MD Attending Pattern Data Operator: Khurram Bedoya MD Provider: KULWINDER Grace ID: [...] who was admitted in transfe r from [place] on 10/11 for consideration of PCI vs [...] 1 dr wong, 1 drop, Both Eyes, PRN aspirin chewable [...] found for: FREET4, TSH, TPOAB, THYROGLOB, THYROGLOBAB, [id number] Lab Results Component Value Date A1C 5.6 [...] exam dated, 03/30/2017, the LVEF is similar. [facility] CXR 10/11/17: FINDINGS: The increased lung volumes. [...] flow to distal LAD 10/03/17 Echo at [place]: The number of aortic valve leaflets cannot [...] stents # NSTEMI Pt was admitted to [place] 10/03 with hypoxemic respiratory failure, severe sepsis and s hock thought to be due to influenza type A as below. Noted to have new LBBB, NSTEMI with pea k trop 26. Underwent coronary angiogram at [place] 10/04 which revealed in stent re-steno sis of both LM into LAD and LCx stents, mild disease of RCA. Transferred to [facility] for further evaluation. TTE shows LV function [...] II-III, Stage C. Etiology ischemic. TTE at [facility] showed EF 30-35%, mildly reduced RV function, mild dilation of ascending aorta. LVEDP 14 mm hg during catheterization 10/04 ( in setting of hypotension). He was diuresed at [place], appears euvolemic on exam today. Pt was [...] Aflutter with RVR prior to admission in [place], treated with amioda rima infusion, maintaining SR [...] admitted with acute dyspnea, respiratory failure to [place] 10/03 found to be Flu pos itive. [...] sepsis management , fluid resuscitation. EGD at [place] on 10/05 showed gastritis, duodenitis, linear ulcerations [...] patient was interviewed and examined by attending supervisor [employer], Dr. Khurram Bedoya MD , who is in agreement with above described findings, assessment and plan. Ashleigh Alvarez, [facility] Instructor of Medicine [facility] [place] Pager [phone] I spent 51 minutes in coordination of care and uvpt-ad-goqi with the patient and/or their s urrogate in which management of CAD, imaging plan and consultation with radiology, pneumonia treatment was discussed Associated attestation - Khurram Bedoya MD - 10/12/2017 3:00 PM PSTCardiology Attendi I have seen and examined Mr. Mckeon and [facility] the [facility]. I reviewed the practitioner's note above and agree with the documented f indings and plan of care. KHURRAM BEDOYA MD Director of the [facility] Hypertrophic Cardiomyopathy Gate Operator of Echocardiography Hydramatic Specialistoncology navigator Division of Cardiovascular Medicine Cristi Sutton - 10/11/2017 12:15 PM PSTTransthoracic echocardiogram completed. Final report to follow. documented in this enc ounter Plan of Treatment + +---------+--------+ + + | Name | Type | Priori | Associated Diagnoses | Order Schedule | | | | ty | | | + +---------+--------+ + + | DIRECTOR MEDICAL AFFAIRS INT | Imaging | Routin | | Tomorrow for 1 | | CORONARY ANGIOGRAM | | e | | Occurrences starting | | | | | | 10/15/2017 until | | | | | | 10/15/2017 | + +---------+--------+ + + | DIRECTOR MEDICAL AFFAIRS EP ICD | Imaging | Routin | | One Time for 1 | | | | e | | Occurrences starting | | | | | | 10/16/2017 until | | | | | | 10/16/2017 | + +---------+--------+ + + documented as of this encounter Procedures + +--------+ + + + | Procedure Name | Priori | Date/Time | Associated Diagnosis | Comments | | | ty | | | | + +--------+ + + + | CAPILLARY BLOOD | Routin | 10/17/2017 | NSTEMI (non-ST | Results for this | | GLUCOSE (NO CHG), | e | 1:18 PM | elevated myocardial | procedure are in the | | POC | | PST | infarction) ([facility]) | results section. | + +--------+ + + + | CAPILLARY BLOOD | Routin | 10/17/2017 | Non-ST elevation | Results for this | | GLUCOSE (NO CHG), | e | 7:38 AM | (NSTEMI) myocardial | procedure are in the | | POC | | PST | infarction ([facility]) | results section. | + +--------+ + + + | X-RAY CHEST 2 VIEW | Routin | 10/17/2017 | | Results for this | | | e | 7:04 AM | | procedure are in the | | | | PST | | results section. | + +--------+ + + + | CBC (HEMOGRAM) ONLY | Urgent | 10/17/2017 | | Results for this | | | | 4:11 AM | | procedure are in the | | | | PST | | results section. | + +--------+ + + + | BASIC METABOLIC SET | Routin | 10/17/2017 | | Results for this | | (NA, K, CL, TCO2, | e | 4:11 AM | | procedure are in the | | BUN, CR, GLU, CA) | | PST | | results section. | + +--------+ + + + | CBC ONLY | Urgent | 10/17/2017 | | Results for this | | | | 4:11 AM | | procedure are in the | | | | PST | | results section. | + +--------+ + + + | CARDIOLOGY | | 10/17/2017 | | Results for this | | | | 12:00 AM | | procedure are in the | | | | PST | | results section. | + +--------+ + + + | CARDIOLOGY | | 10/17/2017 | | Results for this | | | | 12:00 AM | | procedure are in the | | | | PST | | results section. | + +--------+ + + + | X-RAY PORTABLE CHEST | Routin | 10/16/2017 | | Results for this | | 1 VIEW | e | 6:20 PM | | procedure are in the | | | | PST | | results section. | + +--------+ + + + | PROCEDURE NOTE | Routin | 10/16/2017 | | Results for this | | | e | 5:30 PM | | procedure are in the | | | | PST | | results section. | + +--------+ + + + | PROCEDURE NOTE | Routin | 10/16/2017 | | Results for this | | | e | 5:27 PM | | procedure are in the | | | | PST | | results section. | + +--------+ + + + | VBG-FULL ABL, POC | Routin | 10/16/2017 | NSTEMI (non-ST | Results for this | | | e | 3:55 PM | elevated myocardial | procedure are in the | | | | PST | infarction) ([facility]) | results section. | + +--------+ + + + | INTRAPROCEDURE | Routin | 10/16/2017 | | Results for this | | IMAGING | e | 10:53 AM | | procedure are in the | | | | PST | | results section. | + +--------+ + + + | CAPILLARY BLOOD | Routin | 10/16/2017 | Non-ST elevation | Results for this | | GLUCOSE (NO CHG), | e | 8:56 AM | (NSTEMI) myocardial | procedure are in the | | POC | | PST | infarction ([facility]) | results section. | + +--------+ + + + | CBC (HEMOGRAM) ONLY | Urgent | 10/16/2017 | | Results for this | | | | 4:14 AM | | procedure are in the | | | | PST | | results section. | + +--------+ + + + | BASIC METABOLIC SET | Routin | 10/16/2017 | | Results for this | | (NA, K, CL, TCO2, | e | 4:14 AM | | procedure are in the | | BUN, CR, GLU, CA) | | PST | | results section. | + +--------+ + + + | CBC ONLY | Urgent | 10/16/2017 | | Results for this | | | | 4:14 AM | | procedure are in the | | | | PST | | results section. | + +--------+ + + + | CARDIOLOGY | | 10/16/2017 | | Results for this | | | | 12:00 AM | | procedure are in the | | | | PST | | results section. | + +--------+ + + + | CARDIOLOGY | | 10/16/2017 | | Results for this | | | | 12:00 AM | | procedure are in the | | | | PST | | results section. | + +--------+ + + + | CARDIOLOGY | | 10/16/2017 | | Results for this | | | | 12:00 AM | | procedure are in the | | | | PST | | results section. | + +--------+ + + + | CAPILLARY BLOOD | Routin | 10/15/2017 | Non-ST elevation | Results for this | | GLUCOSE (NO CHG), | e | 6:07 PM | (NSTEMI) myocardial | procedure are in the | | POC | | PST | infarction (HCC) | results section. | + +--------+ + + + | 12 LEAD ECG | Routin | 10/15/2017 | | Results for this | | | e | 2:40 PM | | procedure are in the | | | | PST | | results section. | + +--------+ + + + | CARDIAC CATH | | 10/15/2017 | | Results for this | | | | 2:11 PM | | procedure are in the | | | | PST | | results section. | + +--------+ + + + | ACT, POC-CCL ONLY | Routin | 10/15/2017 | Non-ST elevation | Results for this | | | e | 12:43 PM | (NSTEMI) myocardial | procedure are in the | | | | PST | infarction (HCC) | results section. | + +--------+ + + + | ACT, POC-CCL ONLY | Routin | 10/15/2017 | Non-ST elevation | Results for this | | | e | 12:17 PM | (NSTEMI) myocardial | procedure are in the | | | | PST | infarction (HCC) | results section. | + +--------+ + + + | ACT, POC-CCL ONLY | Routin | 10/15/2017 | Non-ST elevation | Results for this | | | e | 12:01 PM | (NSTEMI) myocardial | procedure are in the | | | | PST | infarction (HCC) | results section. | + +--------+ + + + | DIRECTOR MEDICAL AFFAIRS | Routin | 10/15/2017 | | Results for this | | EMERGENT/IMMEDIATE | e | 11:00 AM | | procedure are in the | | PROCEDURE | | PST | | results section. | + +--------+ + + + | CAPILLARY BLOOD | Routin | 10/15/2017 | Non-ST elevation | Results for this | | GLUCOSE (NO CHG), | e | 9:25 AM | (NSTEMI) myocardial | procedure are in the | | POC | | PST | infarction (HCC) | results section. | + +--------+ + + + | CBC (HEMOGRAM) ONLY | Urgent | 10/15/2017 | | Results for this | | | | 4:36 AM | | procedure are in the | | | | PST | | results section. | + +--------+ + + + | INR | Routin | 10/15/2017 | | Results for this | | | e | 4:36 AM | | procedure are in the | | | | PST | | results section. | + +--------+ + + + | BASIC METABOLIC SET | Routin | 10/15/2017 | | Results for this | | (NA, K, CL, TCO2, | e | 4:36 AM | | procedure are in the | | BUN, CR, GLU, CA) | | PST | | results section. | + +--------+ + + + | CBC ONLY | Urgent | 10/15/2017 | | Results for this | | | | 4:36 AM | | procedure are in the | | | | PST | | results section. | + +--------+ + + + | CARDIOLOGY | | 10/15/2017 | | Results for this | | | | 12:00 AM | | procedure are in the | | | | PST | | results section. | + +--------+ + + + | CAPILLARY BLOOD | Routin | 10/14/2017 | Non-ST elevation | Results for this | | GLUCOSE (NO CHG), | e | 5:49 PM | (NSTEMI) myocardial | procedure are in the | | POC | | PST | infarction (HCC) | results section. | + +--------+ + + + | BASIC METABOLIC SET | Routin | 10/14/2017 | | Results for this | | (NA, K, CL, TCO2, | e | 4:25 AM | | procedure are in the | | BUN, CR, GLU, CA) | | PST | | results section. | + +--------+ + + + | CBC (HEMOGRAM) ONLY | Urgent | 10/14/2017 | | Results for this | | | | 4:24 AM | | procedure are in the | | | | PST | | results section. | + +--------+ + + + | CBC ONLY | Urgent | 10/14/2017 | | Results for this | | | | 4:24 AM | | procedure are in the | | | | PST | | results section. | + +--------+ + + + | CARDIOLOGY | | 10/14/2017 | | Results for this | | | | 12:00 AM | | procedure are in the | | | | PST | | results section. | + +--------+ + + + | CARDIOLOGY | | 10/14/2017 | | Results for this | | | | 12:00 AM | | procedure are in the | | | | PST | | results section. | + +--------+ + + + | CAPILLARY BLOOD | Routin | 10/13/2017 | Non-ST elevation | Results for this | | GLUCOSE (NO CHG), | e | 7:36 PM | (NSTEMI) myocardial | procedure are in the | | POC | | PST | infarction ([facility]) | results section. | + +--------+ + + + | PET CARDIAC | Routin | 10/13/2017 | | Results for this | | METABOLIC | e | 6:06 PM | | procedure are in the | | | | PST | | results section. | + +--------+ + + + | CAPILLARY BLOOD | Routin | 10/13/2017 | Non-ST elevation | Results for this | | GLUCOSE (NO CHG), | e | 4:49 PM | (NSTEMI) myocardial | procedure are in the | | POC | | PST | infarction (HCC) | results section. | + +--------+ + + + | CAPILLARY BLOOD | Routin | 10/13/2017 | Non-ST elevation | Results for this | | GLUCOSE (NO CHG), | e | 4:32 PM | (NSTEMI) myocardial | procedure are in the | | POC | | PST | infarction (HCC) | results section. | + +--------+ + + + | CAPILLARY BLOOD | Routin | 10/13/2017 | Non-ST elevation | Results for this | | GLUCOSE (NO CHG), | e | 4:16 PM | (NSTEMI) myocardial | procedure are in the | | POC | | PST | infarction (HCC) | results section. | + +--------+ + + + | CAPILLARY BLOOD | Routin | 10/13/2017 | Non-ST elevation | Results for this | | GLUCOSE (NO CHG), | e | 4:02 PM | (NSTEMI) myocardial | procedure are in the | | POC | | PST | infarction (HCC) | results section. | + +--------+ + + + | CAPILLARY BLOOD | Routin | 10/13/2017 | Non-ST elevation | Results for this | | GLUCOSE (NO CHG), | e | 3:47 PM | (NSTEMI) myocardial | procedure are in the | | POC | | PST | infarction (HCC) | results section. | + +--------+ + + + | CAPILLARY BLOOD | Routin | 10/13/2017 | Non-ST elevation | Results for this | | GLUCOSE (NO CHG), | e | 3:30 PM | (NSTEMI) myocardial | procedure are in the | | POC | | PST | infarction (HCC) | results section. | + +--------+ + + + | CAPILLARY BLOOD | Routin | 10/13/2017 | Non-ST elevation | Results for this | | GLUCOSE (NO CHG), | e | 3:16 PM | (NSTEMI) myocardial | procedure are in the | | POC | | PST | infarction (HCC) | results section. | + +--------+ + + + | CAPILLARY BLOOD | Routin | 10/13/2017 | Non-ST elevation | Results for this | | GLUCOSE (NO CHG), | e | 3:03 PM | (NSTEMI) myocardial | procedure are in the | | POC | | PST | infarction (HCC) | results section. | + +--------+ + + + | CAPILLARY BLOOD | Routin | 10/13/2017 | Non-ST elevation | Results for this | | GLUCOSE (NO CHG), | e | 2:44 PM | (NSTEMI) myocardial | procedure are in the | | POC | | PST | infarction (HCC) | results section. | + +--------+ + + + | CAPILLARY BLOOD | Routin | 10/13/2017 | Non-ST elevation | Results for this | | GLUCOSE (NO CHG), | e | 2:02 PM | (NSTEMI) myocardial | procedure are in the | | POC | | PST | infarction (HCC) | results section. | + +--------+ + + + | CAPILLARY BLOOD | Routin | 10/13/2017 | Non-ST elevation | Results for this | | GLUCOSE (NO CHG), | e | 12:41 PM | (NSTEMI) myocardial | procedure are in the | | POC | | PST | infarction (HCC) | results section. | + +--------+ + + + | NM MYOCARDIAL | Routin | 10/13/2017 | | Results for this | | PERFUSION (SPECT) | e | 11:18 AM | | procedure are in the | | SINGLE AT REST OR | | PST | | results section. | | STRESS | | | | | + +--------+ + + + | CAPILLARY BLOOD | Routin | 10/13/2017 | Non-ST elevation | Results for this | | GLUCOSE (NO CHG), | e | 6:35 AM | (NSTEMI) myocardial | procedure are in the | | POC | | PST | infarction (HCC) | results section. | + +--------+ + + + | CBC (HEMOGRAM) ONLY | Urgent | 10/13/2017 | | Results for this | | | | 4:05 AM | | procedure are in the | | | | PST | | results section. | + +--------+ + + + | BASIC METABOLIC SET | Routin | 10/13/2017 | | Results for this | | (NA, K, CL, TCO2, | e | 4:05 AM | | procedure are in the | | BUN, CR, GLU, CA) | | PST | | results section. | + +--------+ + + + | CBC ONLY | Urgent | 10/13/2017 | | Results for this | | | | 4:05 AM | | procedure are in the | | | | PST | | results section. | + +--------+ + + + | CAPILLARY BLOOD | Routin | 10/13/2017 | Non-ST elevation | Results for this | | GLUCOSE (NO CHG), | e | 12:17 AM | (NSTEMI) myocardial | procedure are in the | | POC | | PST | infarction (HCC) | results section. | + +--------+ + + + | CARDIOLOGY | | 10/13/2017 | | Results for this | | | | 12:00 AM | | procedure are in the | | | | PST | | results section. | + +--------+ + + + | CARDIOLOGY | | 10/13/2017 | | Results for this | | | | 12:00 AM | | procedure are in the | | | | PST | | results section. | + +--------+ + + + | APTT (ACT. PART. | Routin | 10/12/2017 | | Results for this | | THROMBO TIME) | e | 8:44 PM | | procedure are in the | | | | PST | | results section. | + +--------+ + + + | CAPILLARY BLOOD | Routin | 10/12/2017 | Non-ST elevation | Results for this | | GLUCOSE (NO CHG), | e | 5:44 PM | (NSTEMI) myocardial | procedure are in the | | POC | | PST | infarction (HCC) | results section. | + +--------+ + + + | MR CARDIAC | Routin | 10/12/2017 | | Results for this | | COMPREHENSIVE W/O | e | 12:38 PM | | procedure are in the | | CONTRAST | | PST | | results section. | + +--------+ + + + | CAPILLARY BLOOD | Routin | 10/12/2017 | Non-ST elevation | Results for this | | GLUCOSE (NO CHG), | e | 10:43 AM | (NSTEMI) myocardial | procedure are in the | | POC | | PST | infarction (HCC) | results section. | + +--------+ + + + | CBC (HEMOGRAM) ONLY | Urgent | 10/12/2017 | | Results for this | | | | 7:01 AM | | procedure are in the | | | | PST | | results section. | + +--------+ + + + | BASIC METABOLIC SET | Routin | 10/12/2017 | | Results for this | | (NA, K, CL, TCO2, | e | 7:01 AM | | procedure are in the | | BUN, CR, GLU, CA) | | PST | | results section. | + +--------+ + + + | CBC ONLY | Urgent | 10/12/2017 | | Results for this | | | | 7:01 AM | | procedure are in the | | | | PST | | results section. | + +--------+ + + + | APTT (ACT. PART. | Routin | 10/12/2017 | | Results for this | | THROMBO TIME) | e | 7:01 AM | | procedure are in the | | | | PST | | results section. | + +--------+ + + + | APTT (ACT. PART. | Routin | 10/12/2017 | | Results for this | | THROMBO TIME) | e | 12:34 AM | | procedure are in the | | | | PST | | results section. | + +--------+ + + + | CARDIOLOGY | | 10/12/2017 | | Results for this | | | | 12:00 AM | | procedure are in the | | | | PST | | results section. | + +--------+ + + + | CARDIOLOGY | | 10/12/2017 | | Results for this | | | | 12:00 AM | | procedure are in the | | | | PST | | results section. | + +--------+ + + + | CAPILLARY BLOOD | Routin | 10/11/2017 | Non-ST elevation | Results for this | | GLUCOSE (NO CHG), | e | 11:20 PM | (NSTEMI) myocardial | procedure are in the | | POC | | PST | infarction (HCC) | results section. | + +--------+ + + + | CAPILLARY BLOOD | Routin | 10/11/2017 | Non-ST elevation | Results for this | | GLUCOSE (NO CHG), | e | 8:40 PM | (NSTEMI) myocardial | procedure are in the | | POC | | PST | infarction (HCC) | results section. | + +--------+ + + + | CULTURE, SPUTUM | Routin | 10/11/2017 | | Results for this | | | e | 5:45 PM | | procedure are in the | | | | PST | | results section. | + +--------+ + + + | APTT (ACT. PART. | Routin | 10/11/2017 | | Results for this | | THROMBO TIME) | e | 4:49 PM | | procedure are in the | | | | PST | | results section. | + +--------+ + + + | CBC (HEMOGRAM) ONLY | Routin | 10/11/2017 | | Results for this | | | e | 12:43 PM | | procedure are in the | | | | PST | | results section. | + +--------+ + + + | CBC ONLY | Routin | 10/11/2017 | | Results for this | | | e | 12:43 PM | | procedure are in the | | | | PST | | results section. | + +--------+ + + + | APTT (ACT. PART. | Routin | 10/11/2017 | | Results for this | | THROMBO TIME) | e | 12:43 PM | | procedure are in the | | | | PST | | results section. | + +--------+ + + + | HEMOGLOBIN A1C, | Routin | 10/11/2017 | | Results for this | | BLOOD | e | 12:43 PM | | procedure are in the | | | | PST | | results section. | + +--------+ + + + | TRANSTHORACIC | Routin | 10/11/2017 | | Results for this | | ECHOCARDIOGRAM, | e | 11:47 AM | | procedure are in the | | ADULT | | PST | | results section. | + +--------+ + + + | X-RAY PORTABLE CHEST | Routin | 10/11/2017 | | Results for this | | 1 VIEW | e | 11:24 AM | | procedure are in the | | | | PST | | results section. | + +--------+ + + + | CBC (HEMOGRAM) ONLY | Urgent | 10/11/2017 | | Results for this | | | | 6:31 AM | | procedure are in the | | | | PST | | results section. | + +--------+ + + + | HEPARIN, EITHER | Routin | 10/11/2017 | | Results for this | | STANDARD / LMW, | e | 6:31 AM | | procedure are in the | | BLOOD | | PST | | results section. | + +--------+ + + + | RENAL FUNCTION SET | Routin | 10/11/2017 | | Results for this | | (NA,K,CL,CO2,BUN,CRE | e | 6:31 AM | | procedure are in the | | AT,GLUC,CA,PHOS,ALB | | PST | | results section. | | ) | | | | | + +--------+ + + + | CBC ONLY | Urgent | 10/11/2017 | | Results for this | | | | 6:31 AM | | procedure are in the | | | | PST | | results section. | + +--------+ + + + | CARDIOLOGY | | 10/11/2017 | | Results for this | | | | 12:00 AM | | procedure are in the | | | | PST | | results section. | + +--------+ + + + | CBC (HEMOGRAM) ONLY | Urgent | 10/10/2017 | | Results for this | | | | 11:27 PM | | procedure are in the | | | | PST | | results section. | + +--------+ + + + | INR | Urgent | 10/10/2017 | | Results for this | | | | 11:27 PM | | procedure are in the | | | | PST | | results section. | + +--------+ + + + | CBC ONLY | Urgent | 10/10/2017 | | Results for this | | | | 11:27 PM | | procedure are in the | | | | PST | | results section. | + +--------+ + + + | APTT (ACT. PART. | Urgent | 10/10/2017 | | Results for this | | THROMBO TIME) | | 11:27 PM | | procedure are in the | | | | PST | | results section. | + +--------+ + + + | LIPID SET (TRIG, T | Routin | 10/10/2017 | | Results for this | | CHOL, HDL, CALC LDL) | e | 11:27 PM | | procedure are in the | | | | PST | | results section. | + +--------+ + + + | 12 LEAD ECG | Routin | 10/10/2017 | | Results for this | | | e | 11:13 PM | | procedure are in the | | | | PST | | results section. | + +--------+ + + + | ORDERS OTHER | | 10/10/2017 | | Results for this | | | | 12:00 AM | | procedure are in the | | | | PST | | results section. | + +--------+ + + + | CARDIOLOGY | | 10/10/2017 | | Results for this | | | | 12:00 AM | | procedure are in the | | | | PST | | results section. | + +--------+ + + + | CARDIOLOGY | | 10/10/2017 | | Results for this | | | | 12:00 AM | | procedure are in the | | | | PST | | results section. | + +--------+ + + + | CARDIOLOGY | | 10/10/2017 | | Results for this | | | | 12:00 AM | | procedure are in the | | | | PST | | results section. | + +--------+ + + + documented in this encounter Results CAPILLARY BLOOD GLUCOSE (NO CHG), POC (10/17/2017 1:18 PM PST) + +---------+ + + + | Component | Value | Ref Range | Performed | Pathologist | | | | | At | Signature | + +---------+ + + + | BLOOD | 113 (H) | 70 - 99 mg/dL | [facility] | | | GLUCOSE, | | | [facility] | | [...] | [facility] | [address] | [place], [place] | | | [facility] | [address] | [address] | | | TESTS | | | | + + + + + CAPILLARY BLOOD GLUCOSE (NO CHG), POC (10/17/2017 7:38 AM PST) + +---------+ + + + | Component [...] [facility] | [address] | [place], [place] | | | [facility] | [address] | [address] | | | TESTS | | | | + + + + + X-RAY CHEST 2 VIEW (10/17/2017 7:04 AM PST) + + | Specimen | + + | | + + + + + | Narrative | Performed At | + + + | STUDY: CHEST 2 VIEWS HISTORY: Evaluated lead placement. | [facility] | | COMPARISON: October 16, 2017 FINDINGS: A left chest cardiac | RADIOLOGY VOICE | | stimulator device is unchanged. 2 leads terminate overlying the right | RECOGNITION | | atrial appendage and right ventricular apex, and a third epicardial | | | lead terminates overlying the left ventricular apex. The lungs are | | | better expanded, with persistent minimal left basilar atelectasis and | | | mild blunting of left costophrenic sulcus, likely reflecting a small | | | effusion. There is no pneumothorax. The bones are unchanged. | | | IMPRESSION: Unchanged cardiac stimulator device. I have | | | personally reviewed the images and, if necessary, edited the | | | report. I agree with the report as now presented. | | + + + + + | Procedure Note | + + | Service Account, Wedia In Interface - 10/17/2017 7:51 AM PST [...] | | | + +---------+ + + CBC (HEMOGRAM) ONLY (10/17/2017 4:11 AM PST) + + + + + + | Component | Value | Ref Range | Performed | Pathologist | | | | | At | Signature | + + + + + + | WHITE CELL | 8.59 | 3.50 - 10.80 | [facility] | | | COUNT | | K/cu mm | LABORATORY | | | | | | SERVICES, | | | | | | CORE | | + + + + + + | RED CELL | 3.84 (L) | 4.50 - 6.00 | [facility] | | | COUNT | | M/cu mm | LABORATORY | | | | | | SERVICES, | | | | | | CORE | | + + + + + + | HEMOGLOBIN | 11.6 (L) | 13.5 - 17.5 | [facility] [...] + + + + | PLATELET | 226 | 150 - 400 K/cu | [facility] | | | COUNT | | mm | LABORATORY | | | | | | SERVICES, | | | | | | CORE | | + + + + + + | MPV | 10.1 | 9.7 - 12.3 fL | [facility] [...] + | [facility] | [address] | [place] [address] | | | SERVICES, CORE | [address] | | | + + + + + BASIC METABOLIC SET (NA, K, CL, TCO2, BUN, CR, GLU, CA) (10/17/2017 4:11 AM PST) + + + + + + | Component | Value | Ref Range | Performed | Pathologist | | | | | At | Signature | + + + + + + | GLUCOSE, | 103 (H) | 70 - 99 mg/dL | [facility] | | | PLASMA | | | LABORATORY | | | (LAB) | | | SERVICES, | | | | | | CORE | | + + + + + + | BUN, PLASMA | 16 | 6 - 20 mg/dL | [facility] [...] | | | LABORATORY | | | BELGIAN | | | SERVICES, | | | [...] + + + + | SODIUM, | 137 | 136 - 145 | [facility] | [...] + + + + | CALCIUM, | 8.4 (L) | 8.6 - 10.2 | [facility] | | | PLASMA | | mg/dL | LABORATORY | | | (LAB) | | | SERVICES, | | | | | | CORE | | + + + + + + | ANION GAP | 7 | 4 - 11 mmol/L | [facility] | | | | [...] | + + + + + | [facility] | [address] | [place] [address] | | | SERVICES, [place] | [address] | | | + + + + + CARDIOLOGY (10/17/2017 12:00 AM PST) + + + | Narrative | Performed At | + + + | | | + + + CARDIOLOGY (10/17/2017 12:00 AM PST) + + + | Narrative | Performed At | + + + | | | + + + X-RAY PORTABLE CHEST 1 VIEW (10/16/2017 6:20 PM PST) + + | Specimen | + + | | + + + + + | Narrative | Performed At | + + + | STUDY: WY CHEST 1 VIEW HISTORY: Evaluated lead placement. | [facility] | | COMPARISON: STUDY: [place] CHEST 1 VIEW FINDINGS: A new | RADIOLOGY VOICE | | left chest cardiac stimulator device is noted. 2 leads terminate | RECOGNITION | | overlying the right atrial appendage and right ventricular apex, and a | | | third epicardial lead terminates overlying the right ventricular | | | apex. The cardiomediastinal silhouette is stable. Decreased lung | | | volumes with scattered atelectasis. No pulmonary edema, pleural | | | effusion or pneumothorax. IMPRESSION: New cardiac stimulator | | | device, with leads as described. No postprocedural pneumothorax. | | | I have personally reviewed the images and, if necessary, edited the | | | report. I agree with the report as now presented. | | + + + + + | Procedure Note | + + | Joyce Teixeira, Radiant Res In Interface - 10/17/2017 7:51 AM PST STUDY: WY CHEST 1 | | VIEWHISTORY: Evaluated lead placement.COMPARISON: STUDY: [place] CHEST 1 VIEWFINDINGS: A | | new [...] | | | + +---------+ + + PROCEDURE NOTE (10/16/2017 5:30 PM PST) + + + | Narrative | Performed At | + + + | Sophie Darby MD 10/27/2017 11:12 AM PATIENT NAME: | | | Ron Mckeon DATE OF PROCEDURE: 10/16/2017 | | | DATE OF : 1955 REFERRING | | | PHYSICIAN: Khurram Bedoya MD PRIMARY CARE PHYSICIAN: | | | Chato Matson MD PROCEDURES PERFORMED: Biventricular ICD | | | implantation His bundle pacing lead implantation then removal | | | PRE PROCEDURE DIAGNOSIS: Ischemic cardiomyopathy with reduced | | | ejection fraction 30-35% Sustained VT (positive electrophysiology | | | study for inducible monomorphic ventricular tachycardia) POST | | | PROCEDURE DIAGNOSIS: Same INDICATION: Ron Mckeon is a 61 | | | y.o. Male recent NSTEMI, non-sustained VT (PVC triplet) and reduced | | | EF<35% who underwent sudden cardiac arrest risk stratification | | | using ventricular programmed electrical stimulation protocol. | | | Sustained monomorphic VT was induced leading to this procedure. He | | | is candidate for ANA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 since he as class 2 baseline heart failure | | | and currently class 3 heart failure with LBBB 152 msec. | | | PROCEDURE ATTENDING: Sophie Darby MD | | | FELLOW: Amarilis Castle MD | | | PROCEDURAL DATA: Procedure: New implant Implanted | | | generator agriculture instructor: Medtronic Implanted leads agriculture instructor: | | | Medtronic Radha-procedure Anticoag: None Presenting rhythm: | | | NSR Existing device under advisory? 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 Cefazolin 2gm IV was administered | | | preoperatively. The patient was prepped and draped in the usual | | | sterile fashion. A finger oximeter and automatic blood pressure cuff | | | were placed for continuous monitoring. Sedation was achieved by the | | | anesthesiology service. Lidocaine 1% was used for local | | | anesthesia. Under ultrasound guidance, the left axillary vein was | | | cannulated percutaneously using a Micropuncture needle. A 0.018" | | | wire was advanced into the vein and positioned below the diaphragm | | | to confirm venous cannulation. This wire was exchanged for an 0.035" | | | J wire. The procedure was repeated and a second and third J wire | | | were advanced inferior to the diaphragm in a similar fashion. An | | | incision was made medial and perpendicular to the deltopectoral | | | groove. This was dissected down to the prepectoral fascia using | | | electrocautery and all three wires were internalized into the | | | pocket. A 9 Fr Safe sheath was inserted over the first wire | | | and the wire and dilator were removed. Using fluoroscopy, a | | | defibrillator lead was introduced into the 9 Fr sheath and advanced | | | into the right ventricular outflow tract using a curved stylet. | | | Using a straight stylet, the lead was withdrawn and its tip | | | positioned in the right ventricular apex. The lead tip was | | | stabilized and actively fixated in this position. Lead testing | | | showed suitable parameters. There was no diaphragmatic | | | stimulation at an output of 10 V. The 9 Fr sheath was pulled out | | | and peeled away. The lead was anchored to the prepectoral fascia | | | using interrupted silk-0 sutures. A 7 Fr Safe sheath was | | | inserted over the second guidewire and the wire and dilator were | | | removed. An atrial lead was then introduced into the 7-Fr sheath and | | | using a J-tip stylet, its tip was positioned in the right atrial | | | appendage. The lead was actively fixated in this position. Lead | | | testing showed suitable parameters, with no right hemidiaphragmatic | | | stimulation occurring at an output of 10 V. The 7 Fr sheath was | | | pulled out and peeled away. The lead was anchored to the | | | prepectoral fascia using interrupted silk-0 sutures. A 9 Fr | | | Safe sheath was inserted over the third guidewire and the wire and | | | dilator were removed. A 6-Fr deflectable EP mapping catheter was | | | inserted into a cut-away, extended-hook coronary sinus sheath and | | | this system was inserted into the 9-Fr sheath. The EP mapping | | | catheter was used to guide the CS sheath into the CS and was then | | | removed. A Wholey wire was advanced inside the a occlusion wedge | | | catheter and then removed. CS venography using a balloon occluder | | | and Visipaque contrast revealed a small CS branches and challenging | | | anatomy. At this point, we converted to His bundle lead | | | implantation. The 9 Fr Safe sheath was replaced with a 10 Fr safe | | | sheath. A Medtronic rightsite His sheath was initially used but | | | later replaced by a deflectable rightsite His sheath in which it was | | | inserted into the 10 Fr sheath and advanced to the His bundle | | | location. A His bundle lead then was advanced through the sheath | | | into His and was fixated. After some time testing several His bundle | | | pacing locations (with excellent His signal), we could not achieve | | | pure His bundle pacing - QRS was similar duration to baseline. | | | Therefore, we removed the His bundle lead and converted back to CS | | | lead implantation. The 10 Fr sheath was removed, a new left | | | axillary vein access under fluoroscopy guidance was performed, the | | | left axillary vein was cannulated percutaneously using a | | | Micropuncture needle. A 0.018" wire was advanced into the vein and | | | positioned below the diaphragm to confirm venous cannulation. This | | | wire was exchanged for Wholey guidewire. A 9 Fr Safe sheath was | | | inserted over the guidewire and the wire and dilator were | | | removed. A 6-Fr deflectable EP mapping catheter was inserted into | | | a cut-away, extended-hook coronary sinus sheath that was replaced | | | later by attained command sheath and this system was inserted into | | | the 9-Fr sheath. CS venography using a Visipaque contrast revealed | | | an appropriate posterolateral CS branch. A Whisper wire was advanced | | | to this posterior lateral branch of the CS. A quadripolar CS lead | | | was advanced over this guidewire until its tip was in the posterior | | | lateral branch. After testing several pacing configurations for | | | left ventricular capture, the LV1-2 bipolar configuration was | | | selected. Using this configuration, pacing threshold was 0.5 V at | | | 0.4 ms and no diaphragmatic stimulation was observed at an output of | | | 10 V. Other lead parameters were within acceptable limits. The | | | CS sheath was pulled out of the CS and cut away using a slitter | | | while making sure the CS lead remained in the postero-lateral | | | branch. The 9 Fr sheath was pulled out and peeled away. An | | | anchoring sleeve was advanced over the CS lead and positioned just | | | at the level of the prepectoral fascia, and the lead was anchored to | | | the prepectoral fascia using interrupted silk-0 sutures. A | | | subcutaneous pocket was created using blunt dissection, and | | | hemostasis was achieved with electrocautery. The pocket was | | | irrigated with copious amounts of Bacitracin solution. The leads | | | were then connected to the header of a biventricular ICD generator | | | and the leads and pulse generator were positioned inside the | | | antibiotic pouch (Tyrx) and then positioned in the pocket. The pulse | | | generator was anchored to the pectoral muscle with single 0-silk | | | suture. After accounting for all sharps and sponges, the incision | | | was closed in three layers, using Vicryl 2-0 for the deep and | | | superficial layers and Vicryl 4-0 for the subcuticular layer. | | | Bacitracin ointment, Steri-Strips, and a dressing were placed over | | | the incision site. The patient tolerated the entire procedure | | | well. DEVICE INFORMATION: BiV-ICD pulse generator: | | | Seismometer Operator: Medtronic Model number: [id number] Serial | | | number: [id number] RA lead: Seismometer Operator: Medtronic | | | Model number: [id number] Serial number: [id number] RV lead: | | | Seismometer Operator: [employer]tronic Model number: [id number] Serial | | | number: [id number] CS lead: Seismometer Operator: Medtronic | | | Model number: [id number] Serial number: [id number] MEASURED | | | PARAMETERS: RA lead: P wave: 2.3 mV Threshold: 1.0 V | | | at 0.4 ms Impedance: 456 ohms RV lead: R wave: 18.8 | | | mV Threshold: 0.5 V at 0.4 ms Pacing Impedance: 456 ohms | | | Defibrillation Impedance: 72 ohms CS lead: Pacing | | | configuration: LV1>LV2 Threshold: 0.5 V at 0.4 ms | | | Impedance: 836 ohms Bradycardia Parameters: Mode: DDD | | | Lower rate limit: 50 Upper rate limit: 130 Output | | | (A): 3.5 V at 0.4 ms Sensitivity (A): 0.3 mV Output | | | (RV): 3.5 V at 0.4 ms Sensitivity (RV): 0.3 mV Output | | | (CS): 2.0 V at 0.4ms Tachycardia Parameters: VT | | | zone: 177-200 Therapies: Monitor VF zone: >200 bpm | | | Therapies: 35 J x 6 ESTIMATED BLOOD LOSS: 15 mL | | | COMPLICATIONS: None DISPOSITION: The patient was transferred | | | to the Procedural Care Unit in good condition. IMPRESSION: | | | Successful implantation of a biventricular implantable cardioverter | | | defibrillator via a left axillary approach RECOMMENDATIONS: | | | Portable CXR to evaluate for lead positions. Continue prophylactic | | | IV antibiotics for 24 hours. PA and lateral CXR in AM to confirm lead | | | position. Device interrogation in AM. Outpatient wound check in one | | | week, device check in one month. Amarilis Castle MD | | | Electrophysiology Fellow Division of Cardiovascular Medicine | | | [facility] Pager [phone] Pursuant to | | | Federal Medicare requirements, I certify that I, Sophie Darby MD, | | | was present for the entire procedure, performed all critical | | | elements, and participated directly in the generation of this | | | report. Sophie Darby MD Cardiovascular Medicine - | | | Electrophysiology [facility] [place] | | + + + PROCEDURE NOTE (10/16/2017 5:27 PM PST) + + + | Narrative | Performed At | + + + | Sophie Darby MD 10/27/2017 11:06 AM PATIENT NAME: | | | Ron Mckeon DATE OF PROCEDURE: 10/16/2017 | | | DATE OF : 1955 REFERRING | | | PHYSICIAN: Khurram Bedoya MD PRIMARY CARE PHYSICIAN: | | | Chato Matson MD PROCEDURES PERFORMED: 1) Electrophysiology | | | study 2) Ventricular tachycardia induction PRE PROCEDURE | | | DIAGNOSIS: Ischemic cardiomyopathy POST PROCEDURE DIAGNOSIS: | | | Same INDICATION: Ron Mckeon is a 61 y.o. Male recent | | | NSTEMI, non-sustained VT (PVC triplet) and reduced EF<35% who | | | presents to the Electrophysiology Laboratory for an | | | Electrophysiology study for sudden cardiac arrest risk | | | stratification using ventricular programmed electrical stimulation | | | protocol. PROCEDURE ATTENDING: Sophie Darby MD | | | FELLOW: Amarilis Castle MD MEDICATIONS: See | | | anesthesia log and laborer shipyard log FLUIDS: In: 300 ml/ Out: 0 | | | Fluoroscopy Time: 5.2 minutes Fluoroscopy DAP: 67.0 cGy cm2 | | | ESTIMATED BLOOD LOSS: 10 ml PROCEDURE NARRATIVE: | | | Following oral and written informed consent from the patient, the | | | patient was brought to the Electrophysiology Laboratory in the | | | post-absorptive, non-sedated state. A team pause was performed. | | | The patient was prepped and draped in the usual sterile fashion. | | | A finger oximeter and automatic blood pressure cuff were placed for | | | continuous monitoring. Sedation was achieved per anesthesia | | | team. 1% lidocaine was used for local anesthesia. Using the | | | modified Seldinger technique, 2 sheaths, 7 Fr, were inserted into | | | the right femoral vein. Under fluoroscopic guidance, a deflectable | | | quadripolar catheter was positioned in the right ventricular (RV) | | | apex, and a deflectable decapolar catheter was placed in coronary | | | sinus (CS). Using these catheters, RV and CS recordings were | | | obtained, and ventricular pacing was performed. The patient's | | | baseline rhythm was sinus. Ventricular stimulation protocol was | | | performed to try to induce ventricular tachycardia. Ventricular | | | pacing was performed from the right ventricular apex. Two drive | | | cycle lengths, 550 ms and 400 ms, were used. Up to 3 ventricular | | | extrastimuli were delivered. The coupling interval of the | | | extrastimuli was progressively tightened until VT was induced at | | | 400/250/270 msec with VT cycle length of 324 msec. VT was induced at | | | least twice and lasted >30 seconds on second episode, for which he | | | was paced out of it. Patient was hemodynamically stable. The | | | patient tolerated the procedure well. MEASURED VALUES: | | | Pre-Ablation EPS findings/measurements: Rhythm: SINUS Ventricular | | | cycle length (ms): 780 AH interval (ms): 82 HV interval (ms): 75 | | | WY interval (ms): 180 QRS duration (ms): 130 QT interval (ms): 420 | | | Ventricular pre-excitation (y/n) :No Legend: FP=Fast Pathway, | | | SP=Slow Pathway, AVN=AV Node, WCL= Wenckebach cycle length; ERP | | | effective refractory period Ventricular | | | Pacing Site: RV apex VA conduction present: yes VAWCL: | | | <400ms VERP (drive CL / ERP): 400/240ms Rhythm(s) | | | induced: 1) VT, CL 324 ms, induced 400/250/270 | | | DISPOSITION: All catheters and sheaths were pulled. Hemostasis | | | was achieved by Z stitches. The patient was brought back to the | | | Procedural Care Unit in good condition. COMPLICATION: None | | | IMPRESSION: Positive EP study for inducible ventricular tachycardia | | | RECOMMENDATIONS: Proceed with biventricular ICD implantation | | | today Amarilis Castle MD Electrophysiology Fellow Division | | | of Cardiovascular Medicine [facility] | | | Pager [phone] Pursuant to Federal Medicare requirements, I certify | | | that I, Sophie Darby MD, was present for the entire procedure, | | | performed all critical elements, and participated directly in the | | | generation of this report. Sophie Darby MD Cardiovascular | | | Medicine - Electrophysiology [facility] | | + + + VBG-FULL ABL, POC (10/16/2017 3:55 PM PST) + + + + + + | Component | Value | Ref Range | Performed | Pathologist | | | | | At | Signature | + + + + + + | PH VENOUS, | 7.32 (L) | 7.35 - 7.45 | [facility] - | | | POC | | | [facility] | | | | | | [facility] | | | | | | OF CARE | | | | | | TESTS | | + + + + + + | PO2 VENOUS, | 35 | 30 - 55 mmHg | [facility] - | | | POC | | | [facility] | | | | | | [facility] | | | | | | OF CARE | | | | | | TESTS | | + + + + + + | PCO2 | 53 (H) | 35 - 50 mmHg | [facility] - | | | VENOUS, POC | | | [facility] | | | | | | [facility] | | | | | | OF CARE | | | | | | TESTS | | + + + + + + | TOTAL | 11.7 (L) | 13.5 - 17.5 | [facility] - | | | HEMOGLOBIN, | | g/dL | [facility] | | | POC | | | [facility] | | | | | | OF CARE | | | | | | TESTS | | + + + + + + | O2 SAT | 58.2 | % | [facility] - | | | VENOUS, POC | | | [facility] | | | | | | [facility] | | | | | | OF CARE | | | | | | TESTS | | + + + + + + | OXYHEMOGLOB | 56.8 | % | [facility] - | | | IN, POC | | | [facility] | | | | | | [facility], POINT | | | | | | OF CARE | | | | | | TESTS | | + + + + + + | HEMATOCRIT, | 35.7 (L) | 41.0 - 53.0 [...] POC | 138 | 134 - 143 | [facility] - | | | | | mmol/L | [facility] | | | | | | [facility] | | | | | | OF CARE | | | | | | TESTS | | + + + + + + | SATISH | 1.21 | 1.14 - 1.32 | [facility] - | | | IONIZED CA, | | mmol/L | [facility] | | | POC | | | [facility] | | | | | | OF CARE | | | | | | TESTS | | + + + + + + | CHLORIDE, | 105 | 97 - 108 mmol/L | [facility] - | | | POC | | | [facility] | | | | | | [facility] | | | | | | OF CARE | | | | | | TESTS | | + + + + + + | GLUCOSE, | 106 (H) | 70 - 99 mg/dL | [facility] - | | | POC | | | [facility] | | | | | | [facility] | | | | | | OF CARE | | | | | | TESTS | | + + + + + + | HCO3 | 26.9 | 22 - 28 mmol/L | [facility] - | | | VENOUS, POC | | | [facility] | | | | | | [facility] | | | | | | OF CARE | | | | | | TESTS | | + + + + + + | BASE EXCESS | 0.7 | | [facility] - | | | VENOUS, | | | [facility] | | | POC | | | [place], POINT | | | | | | OF CARE | | | | | | TESTS | | + + + + + + | LACTATE | 0.7 | 0.5 - 2.2 | [facility] - | | | VENOUS, POC | | mmol/L | [facility] | | | | | | [place], POINT | | | | | | OF CARE | | | | | | TESTS | | + + + + + + | METHEMOGLOB | 1.0 | % | [facility] - | | | IN, POC | | | [facility] | | [...] + + + | [facility] | [address] | [place], [place] | | | [facility] | [address] | [phone] | | | TESTS | | | | + + + + + INTRAPROCEDURE IMAGING (10/16/2017 10:53 AM PST) + + | Specimen | + + | | + + + + + | Narrative | Performed At | + + + | See admission | | | or procedure notes for details of any intraprocedure images obtained. | | + + + CAPILLARY BLOOD GLUCOSE (NO CHG), POC (10/16/2017 8:56 AM PST) + +---------+ + + + | Component [...] | [facility] | [address] | [place], [place] | | | [facility]ARE | [address] | [address] | | | TESTS | | | | + + + + + CBC (HEMOGRAM) ONLY (10/16/2017 4:14 AM PST) + + + + + + | Component | Value | Ref Range | Performed | Pathologist | | | | | At | Signature | + + + + + + | WHITE CELL | 7.46 | 3.50 - 10.80 | [facility] | | | COUNT | | K/cu mm | LABORATORY | | | | | | SERVICES, | | | | | | CORE | | + + + + + + | RED CELL | 3.82 (L) | 4.50 - 6.00 | [facility] | | | COUNT | | M/cu mm | LABORATORY | | | | | | SERVICES, | | | | | | CORE | | + + + + + + | HEMOGLOBIN | 11.6 (L) | 13.5 - 17.5 | [facility] [...] 89.5 | 80.0 - 96.0 fL | [facility] [...] 45.5 | 35.1 - 46.3 fL | [facility] | | | | | | LABORATORY | | | | | | SERVICES, | | | | | | CORE | | + + + + + + | PLATELET | 209 | 150 - 400 K/cu | [facility] [...] + | [facility] | [address] | [place] [address] | | | SERVICES, CORE | [address] | | | + + + + + BASIC METABOLIC SET (NA, K, CL, TCO2, BUN, CR, GLU, CA) (10/16/2017 4:14 AM PST) + +---------+ + + + | Component | Value | Ref Range | Performed | Pathologist | | | | | At | Signature | + +---------+ + + + | GLUCOSE, | 115 (H) | 70 - 99 mg/dL | [facility] | | | PLASMA | | | LABORATORY | | | (LAB) | | | SERVICES, | | | | | | CORE | | + +---------+ + + + | BUN, PLASMA | 19 | 6 - 20 mg/dL | [facility] | | | (LAB) | | | LABORATORY | | | | | | SERVICES, | | | | | | CORE | | + +---------+ + + + | CREATININE | 1.26 | 0.70 - 1.30 | [facility] | | | PLASMA | | mg/dL | LABORATORY | | | (LAB) | | | SERVICES, | | | | | | CORE | | + +---------+ + + + | EGFR | >60 | >60 mL/min | [facility] | | | - | | | LABORATORY | | | BELGIAN | | | SERVICES, | | | | | | CORE | | + +---------+ + + + | EGFR NON | 58 (L) | >60 mL/min | [facility] | | | -SOREN | | | LABORATORY | | | RICAN | | | SERVICES, | | | | | | CORE | | + +---------+ + + + | SODIUM, | 137 | 136 - 145 | [facility] | | | PLASMA | | mmol/L | LABORATORY | | | (LAB) | | | SERVICES, | | | | | | CORE | | + +---------+ + + + | POTASSIUM, | 4.2 | 3.4 - 5.0 | [facility] | | | PLASMA | | mmol/L | LABORATORY | | | (LAB) | | | SERVICES, | | | | | | CORE | | + +---------+ + + + | CHLORIDE, | 104 [...] +---------+ + + + | CALCIUM, | 8.5 (L) | 8.6 - 10.2 | [facility] | | | PLASMA | | mg/dL | LABORATORY | | | (LAB) | | | SERVICES, | | | | | | CORE | | + +---------+ + + + | ANION GAP | 8 | 4 - 11 mmol/L | [facility] | | | | [...] | + + + + + | [facility] | [address] | [place] [address] | | | ИРИНА ANTOINE | JT ALICEA | | | + + + + + CARDIOLOGY (10/16/2017 12:00 AM PST) + + + | Narrative | Performed At | + + + | | | + + + CARDIOLOGY (10/16/2017 12:00 AM PST) + + + | Narrative | Performed At | + + + | | | + + + CARDIOLOGY (10/16/2017 12:00 AM PST) + + + | Narrative | Performed At | + + + | | | + + + CAPILLARY BLOOD GLUCOSE (NO CHG), POC (10/15/2017 6:07 PM PST) + +-------+ + + + | Component [...] [facility] | [address] | [place], [place] | | | J[facility] SIL[facility] CARE | [address] | [address] | | | TESTS | | | | + + + + + 12 LEAD ECG (10/15/2017 2:40 PM PST) + + + + + + | Component | Value | Ref Range | Performed | Pathologist | | | | | At | Signature | + + + + + + | VENTRICULAR | 67 | bpm | [facility] | | | RATE | | | OF | | | | | | CARDIOLOGY | | + + + + + + | ATRIAL RATE | 67 | ms | [facility] | | | | | | OF | | | | | | CARDIOLOGY | | + + + + + + | P-R | 173 | ms | [facility] | | | INTERVAL | | | OF | | | | | | CARDIOLOGY | | + + + + + + | P AXIS | 54 | deg | [facility] | | | | | | OF | | | | | | CARDIOLOGY | | + + + + + + | QRS | 152 | ms | [facility] | | | DURATION | | | OF | | | | | | CARDIOLOGY | | + + + + + + | QT | 457 | ms | [facility] | | | | | | OF | | | | | | CARDIOLOGY | | + + + + + + | QTCB | 483 | ms | [facility] | | | | | | OF | | | | | | CARDIOLOGY | | + + + + + + | R AXIS | 268 | deg | [facility] | | | | | | OF | | | | | | CARDIOLOGY | | + + + + + + | T AXIS | 127 | deg | [facility] | | | | | | OF | | | | | | CARDIOLOGY | | + + + + + + | ECG | Sinus rhythm | | [facility] | | | IMPRESSION | | | OF | | | | | | CARDIOLOGY | | + + + + + + | ECG | Left bundle branch block | | [facility] | | | IMPRESSION | (atypical late | | OF | | | | transition)- ABNORMAL | | CARDIOLOGY | | | | ECG - | | | | + + + + + + | ECG | Electronically signed | | [facility] | | | IMPRESSION | by: SOPHIE DARBY | | OF | | | | 10-15-2017 15:19:04 | | CARDIOLOGY | | + + [...] | [facility] | [address] | [place], [place] | | | CARDIOLOGY | [address] | [address] | | + + + + + CARDIAC CATH (10/15/2017 2:11 PM PST) + + | Procedure Note | + + | Tejal Modi MD - 10/15/2017 2:11 PM PST DATE OF PROCEDURE:October 15, | | 2018PERFORMING PHYSICIAN:Tejal Modi [facility] ATTENDING:Mike Bray MDTheramy was no | | qualified Fellow available [...] 110 mL.FLUOROSCOPY TIME:17.8 minutes.FLUOROSCOPY | | DAP:7406.0 [id number]:1. Left ventricular pressure 91/23 mmHg.2. Aortic | | pressure 93/72 mmHg, mean of 80 mmHg. 3. Heart rate 71 beats per minute.ACCESS:1. | | 14-Rwandan Impella sheath in the right femoral artery.2. 7-Rwandan sheath in the left | | femoral artery.3. 6-Rwandan sheath in the right femoral vein.ESTIMATED BLOOD [...] | micropuncture technique and ultrasound guidance, a 5-Rwandan sheath was inserted in the | | right femoral artery and a 6-Rwandan sheath was inserted in the right femoral vein. Two | | Perclose devices were deployed in the preclosure method and then the 5-Rwandan sheath was | | exchanged over an Amplatz stiff wire for the 14-Rwandan Impella sheath. A 5-Rwandan | | angled pigtail catheter was then [...] technique and ultrasound guidance and placed a 7-Rwandan sheath. A 7-Rwandan XB 3.5 guide | | catheter was [...] and a 3.0 x 18 mm Resolute [place] drug-eluting stent was advanced over the | [...] and pulled out of the body. The 14-Rwandan sheath was | | then removed and [...] with one 3.0 x 18 mm Resolute [place] drug-eluting stent. Successful | | percutaneous coronary [...] | | 10/15/2017 13:25:02DT: 10/15/2017 14:11:10Job #: [id number] | |2. Lesion type: C. | |3. [...] |BCN/MODL | | | | | | /[id number] | + + ACT, POC-CCL ONLY (10/15/2017 12:43 PM PST) + +-------+ + + + | Component | Value | Ref Range | Performed | Pathologist | | | | | At | Signature | + +-------+ + + + | ACT, POC | 208 | 90 - 150 | [facility] [...] [facility] | [address] | [place], [place] | | | [facility] | [address] | [address] | | | TESTS | | | | + + + + + ACT, POC-CCL ONLY (10/15/2017 12:17 PM PST) + +-------+ + + + | Component | Value | Ref Range | Performed | Pathologist | | | | | At | Signature | + +-------+ + + + | ACT, POC | 247 | 90 - 150 | [facility] [...] | [facility] | [address] | [place], [place] | | | JULIANN SILVA OF [facility] | [facility] | [address] | | | TESTS | | | | + + + + + ACT, POC-CCL ONLY (10/15/2017 12:01 PM PST) + +-------+ + + + | Component | Value | Ref Range | Performed | Pathologist | | | | | At | Signature | + +-------+ + + + | ACT, POC | 228 | 90 - 150 | [facility] - | | | CCL | | [...] | [facility] | [address] | [place], [place] | | | [facility] | [address] | [address] | | | TESTS | | | | + + + + + DIRECTOR MEDICAL AFFAIRS EMERGENT/IMMEDIATE PROCEDURE (10/15/2017 11:00 AM PST) + + | Specimen | + + | | + + + + + | Narrative | Performed At | + + + | Procedure | | | performed in the [facility] [employer]. See procedure notes for details. | | + + + CAPILLARY BLOOD GLUCOSE (NO CHG), POC (10/15/2017 9:25 AM PST) + +---------+ + + + | Component [...] | [facility] | [address] | [place], [place] | | | [facility] | [facility] | [address] | | | TESTS | | | | + + + + + CBC (HEMOGRAM) ONLY (10/15/2017 4:36 AM PST) + + + + + + | Component | Value | Ref Range | Performed | Pathologist | | | | | At | Signature | + + + + + + | WHITE CELL | 6.77 | 3.50 - 10.80 | [facility] | | | COUNT | | K/cu mm | LABORATORY | | | | | | SERVICES, | | | | | | CORE | | + + + + + + | RED CELL | 3.76 (L) | 4.50 - 6.00 | [facility] | | | COUNT | | M/cu mm | LABORATORY | | | | | | SERVICES, | | | | | | CORE | | + + + + + + | HEMOGLOBIN | 11.5 (L) | 13.5 - 17.5 | [facility] [...] 90.2 | 80.0 - 96.0 fL | [facility] [...] 45.5 | 35.1 - 46.3 fL | [facility] | | | | | | LABORATORY | | | | | | SERVICES, | | | | | | CORE | | + + + + + + | PLATELET | 205 | 150 - 400 K/cu | [facility] | | | COUNT | | mm | LABORATORY | | | | | | SERVICES, | | | | | | CORE | | + + + + + + | MPV | 10.4 | 9.7 - 12.3 fL | [facility] [...] + | [facility] | [address] | [place] [address] | | | SERVICES, CORE | [address] | | | + + + + + BASIC METABOLIC SET (NA, K, CL, TCO2, BUN, CR, GLU, CA) (10/15/2017 4:36 AM PST) + + + + + + | Component | Value | Ref Range | Performed | Pathologist | | | | | At | Signature | + + + + + + | GLUCOSE, | 120 (H) | 70 - 99 mg/dL | [facility] | | | PLASMA | | | LABORATORY | | | (LAB) | | | SERVICES, | | | | | | CORE | | + + + + + + | BUN, PLASMA | 18 | 6 - 20 mg/dL | [facility] [...] | | | LABORATORY | | | BELGIAN | | | SERVICES, | | | [...] + + + + | SODIUM, | 139 | 136 - 145 | [facility] | [...] + + + + | CHLORIDE, | 105 | 97 - 108 mmol/L | [facility] [...] + + + + | CALCIUM, | 8.7 | 8.6 - 10.2 | [facility] | | | PLASMA | | mg/dL | LABORATORY | | | (LAB) | | | SERVICES, | | | | | | CORE | | + + + + + + | ANION GAP | 7 | 4 - 11 mmol/L | [facility] | | | | [...] Education Program. Estimated GFR Interpretive Information: | ARASH, CORE | | <60 mL/min/1.73 sq m [...] | + + + + + | [facility] | [address] | [place] [address] | | | SERVICES, CORE | [address] | | | + + + + + INR (10/15/2017 4:36 AM PST) + +-------+ + + + | Component | Value | Ref Range | Performed | Pathologist | | | | | At | Signature | + +-------+ + + + | INR | 1.11 | 0.90 - 1.20 INR | [facility] [...] | + + + + + | [facility] | [address] | [place] [address] | | | ИРИНА ANTOINE | [address] | | | + + + + + CARDIOLOGY (10/15/2017 12:00 AM PST) + + + | Narrative | Performed At | + + + | | | + + + CAPILLARY BLOOD GLUCOSE (NO CHG), POC (10/14/2017 5:49 PM PST) + +---------+ + + + | Component [...] + + + | [facility] | [address] | [place], [place] | | | [facility] | [address] | [address] | | | TESTS | | | | + + + + + BASIC METABOLIC SET (NA, K, CL, TCO2, BUN, CR, GLU, CA) (10/14/2017 4:25 AM PST) + + + + + + | Component | Value | Ref Range | Performed | Pathologist | | | | | At | Signature | + + + + + + | GLUCOSE, | 118 (H) | 70 - 99 mg/dL | [facility] | | | PLASMA | | | LABORATORY | | | (LAB) | | | SERVICES, | | | | | | CORE | | + + + + + + | BUN, PLASMA | 18 | 6 - 20 mg/dL | [facility] [...] | | | LABORATORY | | | BELGIAN | | | SERVICES, | | | [...] 9 | 4 - 11 mmol/L | [facility] | | | | [...] | + + + + + | [facility] | [address] [facility] | [place] [address] | | | SERVICES, CORE | [address] | | | + + + + + CBC (HEMOGRAM) ONLY (10/14/2017 4:24 AM PST) + + + + + + | Component | Value | Ref Range | Performed | Pathologist | | | | | At | Signature | + + + + + + | WHITE CELL | 7.44 | 3.50 - 10.80 | [facility] | | | COUNT | | K/cu mm | LABORATORY | | | | | | SERVICES, | | | | | | CORE | | + + + + + + | RED CELL | 3.73 (L) | 4.50 - 6.00 | [facility] | | | COUNT | | M/cu mm | LABORATORY | | | | | | SERVICES, | | | | | | CORE | | + + + + + + | HEMOGLOBIN | 11.1 (L) | 13.5 - 17.5 | [facility] [...] 90.3 | 80.0 - 96.0 fL | [facility] [...] 46.3 | 35.1 - 46.3 fL | [facility] | | | | | | LABORATORY | | | | | | SERVICES, | | | | | | CORE | | + + + + + + | PLATELET | 216 | 150 - 400 K/cu | [facility] [...] + | [facility] | [address] | [place] [address] | | | ИРИНА ANTOINE | [address] | | | + + + + + CARDIOLOGY (10/14/2017 12:00 AM PST) + + + | Narrative | Performed At | + + + | | | + + + CARDIOLOGY (10/14/2017 12:00 AM PST) + + + | Narrative | Performed At | + + + | | | + + + CAPILLARY BLOOD GLUCOSE (NO CHG), POC (10/13/2017 7:36 PM PST) + +-------+ + + + | Component | Value | Ref Range | Performed | Pathologist | | | | | At | Signature | + +-------+ + + + | BLOOD | 89 | 70 - 99 mg/dL | [facility] [...] | [facility] | [address] | [place], [place] | | | JULIANN SILVA OF [facility] | [address] | [address] | | | TESTS | | | | + + + + + PET CARDIAC METABOLIC (10/13/2017 6:06 PM PST) + + | Specimen | + + | | + + + + + | Narrative | Performed At | + + + | EXAM: PET Scan Cardiac 10/13/17 14:07:41 | [facility] | | HISTORY: 61-year-old male presenting with a stent thrombosis of the | RADIOLOGY VOICE | | LM/LAD and LCx stents. Patient was transferred here for consideration | RECOGNITION | | of complex PCI versus CABG. Study is to evaluate for viable | | | myocardium. COMPARISON: Myocardial perfusion rest scan 10/13/17 | | | PROCEDURE: Myocardial viability prep consisting of 12 hour | | | fast, diabetic or not, glucose load, insulin if administered | | | Following interview by nuclear medicine personnel, the patient | | | uneventfully received 9.3 mCi of 18-F fluorodeoxyglucose via a left | | | medial biceps intravenous injection. The blood glucose level was | | | 105. After 60 minutes in quiet conditions, non contrast CT | | | scan for attenuation correction and anatomic localization was | | | performed. Immediately following, and without moving the patient, | | | standard body PET imaging was performed of the heart. Axial, | | | sagittal, and coronal images are evaluated. FINDINGS: FDG | | | cardiac PET demonstrates severely decreased to absent tracer uptake | | | along the anterior mid to distal wall, mid to distal interventricular | | | septum, and apex. Tracer uptake is seen within the rest of the left | | | ventricle. Review of the separate myocardial rest perfusion | | | Tc-Sestamibi demonstrates extensive severe perfusional defect | | | involving the same areas as described above. The non contrast CT | | | for attenuation and localization was also reviewed. No suspicious | | | pulmonary nodules are identified. Small bilateral pleural effusions | | | are present. No suspicious osseous lesions are identified. | | | IMPRESSION: No significant tracer uptake within the [id number]-ni-vnkqft | | | anterior wall/interventricular septum and apex corresponding to same | | | non-perfused areas seen on myocardial rest perfusion scan, compatible | | | with nonviable myocardium in these regions. I have personally | | | reviewed the images and, if necessary, edited the report. I agree | | | with the report as now presented. | | + + + + + | Procedure Note | + + | Service Account, Arely Mckenna In Interface - 10/14/2017 5:47 PM PST [...] significant tracer | | uptake within the zvy-it-[id number] anterior wall/interventricular septum and apex | | corresponding to same non-perfused areas seen on myocardial rest perfusion scan, | | compatible with nonviable myocardium in these regions. I have personally reviewed the | | images and, if necessary, edited the report. I agree with the report as now presented. | |No significant tracer uptake within the pjs-ej-silsdi anterior wall/interventricular septum and apex corresponding to [...] BLOOD GLUCOSE (NO CHG), POC (10/13/2017 4:49 PM PST) + +---------+ + + + | Component | Value | Ref Range | Performed | Pathologist | | | | | At | Signature | + +---------+ + + + | BLOOD | 143 (H) | 70 - 99 mg/dL | [facility] | | | GLUCOSE, | | | [facility] | | | POC | | | [facility] | | | | | | OF [...] [facility] | [address] | [place], [place] | | | [facility]ARE | [address] | [address] | | | TESTS | | | | + + + + + CAPILLARY BLOOD GLUCOSE (NO CHG), POC (10/13/2017 4:32 PM PST) + +---------+ + + + | Component | Value | Ref Range | Performed | Pathologist | | | | | At | Signature | + +---------+ + + + | BLOOD | 159 (H) | 70 - 99 [...] | [facility] | [address] | [place], [place] | | | [facility]ARE | [address] | [address] | | | TESTS | | | | + + + + + CAPILLARY BLOOD GLUCOSE (NO CHG), POC (10/13/2017 4:16 PM PST) + +---------+ + + + | Component | Value | Ref Range | Performed | Pathologist | | | | | At | Signature | + +---------+ + + + | BLOOD | 201 (H) | 70 - 99 [...] [facility] | [address] | [place], [place] | | | [facility] | [address] | [address] | | | TESTS | | | | + + + + + CAPILLARY BLOOD GLUCOSE (NO CHG), POC (10/13/2017 4:02 PM PST) + +---------+ + + + | Component [...] [facility] | [address] | [place], [place] | | | [facility] | [facility] | [address] | | | TESTS | | | | + + + + + CAPILLARY BLOOD GLUCOSE (NO CHG), POC (10/13/2017 3:47 PM PST) + +---------+ + + + | Component | Value | Ref Range | Performed | Pathologist | | | | | At | Signature | + +---------+ + + + | BLOOD | 181 (H) | 70 - 99 [...] | [facility] | [address] | [place], [place] | | | [facility] | [address] | [address] | | | TESTS | | | | + + + + + CAPILLARY BLOOD GLUCOSE (NO CHG), POC (10/13/2017 3:30 PM PST) + +---------+ + + + | Component | Value | Ref Range | Performed | Pathologist | | | | | At | Signature | + +---------+ + + + | BLOOD | 204 (H) | 70 - 99 [...] [facility] | [address] | [place], [place] | | | [facility] | [address] | [address] | | | TESTS | | | | + + + + + CAPILLARY BLOOD GLUCOSE (NO CHG), POC (10/13/2017 3:16 PM PST) + +---------+ + + + | Component [...] [facility] | [address] | [place], [place] | | | [facility]ARE | [address] | [address] | | | TESTS | | | | + + + + + CAPILLARY BLOOD GLUCOSE (NO CHG), POC (10/13/2017 3:03 PM PST) + +---------+ + + + | Component [...] | [facility] | [address] | [place], [place] | | | [facility] CARE | [address] | [address] | | | TESTS | | | | + + + + + CAPILLARY BLOOD GLUCOSE (NO CHG), POC (10/13/2017 2:44 PM PST) + +---------+ + + + | Component [...] [facility] | [address] | [place], [place] | | | [facility]ARE | [address] | [address] | | | TESTS | | | | + + + + + CAPILLARY BLOOD GLUCOSE (NO CHG), POC (10/13/2017 2:02 PM PST) + +---------+ + + + | Component [...] | [facility] | [address] | [place], [place] | | | [facility] | [address] | [address] | | | TESTS | | | | + + + + + CAPILLARY BLOOD GLUCOSE (NO CHG), POC (10/13/2017 12:41 PM PST) + +---------+ + + + | Component | Value | Ref Range | Performed | Pathologist | | | | | At | Signature | + +---------+ + + + | BLOOD | 103 (H) | 70 - 99 [...] | [facility] | [address] | [place], [place] | | | JULIANN SILVA OF [facility] | [address] | [address] | | | TESTS | | | | + + + + + NM MYOCARDIAL PERFUSION (SPECT) SINGLE AT REST OR STRESS (10/13/2017 11:18 AM PST) + + | Specimen | + + | | + + + + + | Narrative | Performed At | + + + | EXAM: Regadenoson Sestamibi SPECT Myocardial Perfusion Study | [facility] | | 10/13/17 09:54:20 HISTORY: Myocardial infarction COMPARISON : | RADIOLOGY VOICE | | None TECHNIQUE: This is a one day (rest only) study. | RECOGNITION | | The rest portion was performed on 10/13/17. The patient was injected | | | with 29.1 mCi Tc 99m sestamibi. Gated SPECT images were acquired | | | one hour after injection. FINDINGS: On rest | | | projection images, there is significant patient motion. There is no | | | significant soft tissue attenuation. On rest SPECT images, | | | there is an extensive severe defect involving the anterior mid to | | | distal wall, apex, and anterior septum, involving approximately 40% of | | | the left ventricular myocardium. Left ventricle wall | | | motion of the affected region is akinetic and dyskinetic and | | | brightening is nearly absent. LVEF is calculated to be 24%. | | | IMPRESSION: Extensive severe perfusional defect involving | | | approximately 40% of the left ventricular myocardium with severe wall | | | motion abnormality and ejection fraction of 24%. This study is | | | categorized as high risk. Study interpreted with Dr. Will Ann | | | of cardiology. I have personally reviewed the images and, if | | | necessary, edited the report. I agree with the report as now | | | presented. | | + + + + + | Procedure Note | + + | Service Account, Radiant Res In Interface - 10/13/2017 5:30 PM [...] BLOOD GLUCOSE (NO CHG), POC (10/13/2017 6:35 AM PST) + +---------+ + + + | Component [...] | [facility] | [address] | [place], [place] | | | [facility] | [address] | [address] | | | TESTS | | | | + + + + + CBC (HEMOGRAM) ONLY (10/13/2017 4:05 AM PST) + + + + + + | Component | Value | Ref Range | Performed | Pathologist | | | | | At | Signature | + + + + + + | WHITE CELL | 7.35 | 3.50 - 10.80 | [facility] | [...] 89.4 | 80.0 - 96.0 fL | [facility] [...] 45.5 | 35.1 - 46.3 fL | [facility] | | | | | | LABORATORY | | | | | | SERVICES, | | | | | | CORE | | + + + + + + | PLATELET | 209 | 150 - 400 K/cu | [facility] [...] + | [facility] | [address] | [place] [address] | | | SERVICES, CORE | [address] | | | + + + + + BASIC METABOLIC SET (NA, K, CL, TCO2, BUN, CR, GLU, CA) (10/13/2017 4:05 AM PST) + +---------+ + + + | Component | Value | Ref Range | Performed | Pathologist | | | | | At | Signature | + +---------+ + + + | GLUCOSE, | 114 (H) | 70 - 99 mg/dL | [facility] | | | PLASMA | | | LABORATORY | | | (LAB) | | | SERVICES, | | | | | | CORE | | + +---------+ + + + | BUN, PLASMA | 20 | 6 - 20 mg/dL | [facility] | | | (LAB) | | | LABORATORY | | | | | | SERVICES, | | | | | | CORE | | + +---------+ + + + | CREATININE | 1.25 | 0.70 - 1.30 | [facility] | | | PLASMA | | mg/dL | LABORATORY | | | (LAB) | | | SERVICES, | | | | | | CORE | | + +---------+ + + + | EGFR | >60 | >60 mL/min | [facility] | | | - | | | LABORATORY | | | BELGIAN | | | SERVICES, | | | | | | CORE | | + +---------+ + + + | EGFR NON | 59 (L) | >60 mL/min | [facility] | | | -SOREN | | | LABORATORY | | | RICAN | | | SERVICES, | | | | | | CORE | | + +---------+ + + + | SODIUM, | 140 [...] +---------+ + + + | CHLORIDE, | 109 [...] 7 | 4 - 11 mmol/L | [facility] | | | | [...] | + + + + + | [facility] | [address] | [place] [address] | | | ИРИНА ANTOINE | [address] | | | + + + + + CAPILLARY BLOOD GLUCOSE (NO CHG), POC (10/13/2017 12:17 AM PST) + +---------+ + + + | Component | Value | Ref Range | Performed | Pathologist | | | | | At | Signature | + +---------+ + + + | BLOOD | 131 (H) | 70 - 99 mg/dL | [facility] - | | | GLUCOSE, | [...] | [facility] | [address] | [place], [place] | | | JULIANN SILVA [facility] | [address] | [address] | | | TESTS | | | | + + + + + CARDIOLOGY (10/13/2017 12:00 AM PST) + + + | Narrative | Performed At | + + + | | | + + + CARDIOLOGY (10/13/2017 12:00 AM PST) + + + | Narrative | Performed At | + + + | | | + + + APTT (ACT. PART. THROMBO TIME) (10/12/2017 8:44 PM PST) + +-------+ + + + | Component | Value | Ref Range | Performed | Pathologist | | | | | At | Signature | + +-------+ + + + | APTT | 28.7 | 26.0 - 36.0 | [facility] | | | | | seconds | LABORATORY | | | | | | SERVICES, | | | | | | CORE | | + +-------+ + + + + + | Specimen | + + | Blood | + + + + + | Narrative | Performed At | + + + | Acute Coronary Syndrome Heparin Protocol aPTT 6 hrs after every | [facility] | | heparin rate change; If aPTT within target range for 2 consecutive | LABORATORY | | results, recheck every AM APTT Therapeutic | SERVICES, CORE | | Range: (75 - 120) sec | | | Heparin levels of 0.35 - 0.7 U/mL | | + + + + + + + + | Performing | Address | City/State/Zipcode | Phone Number | | Organization | | | | + + + + + | [facility] | [address] | [place] [address] | | | SERVICES, CORE | [address] | | | + + + + + CAPILLARY BLOOD GLUCOSE (NO CHG), POC (10/12/2017 5:44 PM PST) + +---------+ + + + | Component | Value | Ref Range | Performed | Pathologist | | | | | At | Signature | + +---------+ + + + | BLOOD | 145 (H) | 70 - 99 [...] | [facility] | [address] | [place], [place] | | | JULIANN SILVA OF [facility] | [facility] | [address] | | | TESTS | | | | + + + + + MR CARDIAC COMPREHENSIVE W/O CONTRAST (10/12/2017 12:38 PM PST) + + | Specimen | + + | | + + + + + | Narrative | Performed At | + + + | Report ====== Assembly Machine Feeder: Rodríguez Fortune ([id number])shubham | [facility] | | [facility] Assistant: shubham lockhart Fellow: shubham lockhart | RADIOLOGY | | [employer] Director: shubham lockhart Viewer: shubham lockhart Report Date: | CARDIAC IMAGING | | Oct 2017, 09:22:25 PST Patient ------- Patient: RON MCKEON | | | Acc #: [id number] | | | Ethnicity: N Status: Final Report Report Number: [id number] Gender: Male | | | Birthdate: 1955 (61 yrs) Study Date: 12 Oct 2017 Study | | | Description: CMR with Flows with Contrast Referring Physician: | | | KHURRAM BEDOYA Blood Pressure: / Heart rate: Height (cm): 0 | | | Weight (kg): 89 BMI (kg/m ): 0 BSA (m ): 0 (Mosteller Formula) | | | Image Quality: Good Scanner Seismometer Operator: Buxfer Scanner | | | Model: PicRate.Me Scanner Serial Number: [id number] Scanner Software | | | Platform: [id number] Staff: Rodríguez Fortune Modality: MR | | | Indication Name: routine Protocol Name: CMR W Flows WO Contrast | | | Findings -------- Non-cardiac findings were reviewed by Dr. Curtis. 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 | | | There are bilateral [...] - 10/16/2017 9:22 AM PST | | Report======Assembly Machine Feeder: Rodríguez Fortune ([id number]), shubham Rodriguezalyst: shubham | | Lorena: shubham Garciaechnician: shubham Beckwithwer: shubham | | Rosey Date: 16 Oct 2017, 09:22:25 PSTPatient-------Patient: RON MCKEON | | JMedical Record Number: [id number] ID: [id number] #: [id number]: NStatus: | | Final ReportReport Number: [id number]: MaleBirthdate: 1955 (61 yrs)Study Date: 05 | | Oct 2017Study Description: CMR with Flows with ContrastReferring Physician: KHURRAM | | ANASTACIAITSAULOBlood Pressure: /Heart rate:Height (cm): 0Weight (kg): 89BMI (kg/m ): 0BSA | | (m ): 0 (Mosteller Formula)Image Quality: Jazmincansaulo Seismometer Operator: [employer] | | Rocket InternetScanner Model: Zao.comcanClearDATA Serial Number: [id number] Software Platform: | | [id number]: Rodríguez FortuneModality: MRIndication Name: routineProtocol Name: | | CMR W Flows WO ContrastFindings--------Non-cardiac findings were reviewed by | | Ever.This exam was terminated prematurely and 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 Curtis. 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 | |There are bilateral pleural [...] BLOOD GLUCOSE (NO CHG), POC (10/12/2017 10:43 AM PST) + +---------+ + + + | Component [...] - [facility] | [address] | [place], [place] | | | JULIANN S[facility] | [address] | [address] | | | TESTS | | | | + + + + + CBC (HEMOGRAM) ONLY (10/12/2017 7:01 AM PST) + + + + + + | Component | Value | Ref Range | Performed | Pathologist | | | | | At | Signature | + + + + + + | WHITE CELL | 6.50 | 3.50 - 10.80 | [facility] | | | COUNT | | K/cu mm | LABORATORY | | | | | | SERVICES, | | | | | | CORE | | + + + + + + | RED CELL | 3.75 (L) | 4.50 - 6.00 | [facility] [...] 45.3 | 35.1 - 46.3 fL | [facility] | | | | | | LABORATORY | | | | | | SERVICES, | | | | | | CORE | | + + + + + + | PLATELET | 198 | 150 - 400 K/cu | [facility] [...] + + | [facility] | [address] | [place] [address] | | | SERVICES, CORE | [address] | | | + + + + + APTT (ACT. PART. THROMBO TIME) (10/12/2017 7:01 AM PST) + + + + + + | Component | Value | Ref Range | Performed | Pathologist | | | | | At | Signature | + + + + + + | APTT | 50.7 (H) | 26.0 - 36.0 | [facility] [...] + | [facility] | [address] | [place] [address] | | | ИРИНА ANTOINE | [address] | | | + + + + + BASIC METABOLIC SET (NA, K, CL, TCO2, BUN, CR, GLU, CA) (10/12/2017 7:01 AM PST) + + + + + + | Component | Value | Ref Range | Performed | Pathologist | | | | | At | Signature | + + + + + + | GLUCOSE, | 108 (H) | 70 - 99 mg/dL | [facility] | | | PLASMA | | | LABORATORY | | | (LAB) | | | SERVICES, | | | | | | CORE | | + + + + + + | BUN, PLASMA | 21 (H) | 6 - 20 [...] | | | LABORATORY | | | BELGIAN | | | SERVICES, | | | [...] 10 | 4 - 11 mmol/L | [facility] | | | | [...] | + + + + + | [facility] | [address] [facility] | [place] [address] | | | ARASH, ИРИНА | [address] | | | + + + + + APTT (ACT. PART. THROMBO TIME) (10/12/2017 12:34 AM PST) + + + + + + | Component | Value | Ref Range | Performed | Pathologist | | | | | At | Signature | + + + + + + | APTT | 51.8 (H) | 26.0 - 36.0 | [facility] [...] + | [facility] | [address] | [place] [address] | | | SERVICES, ИРИНА | [address] | | | + + + + + CARDIOLOGY (10/12/2017 12:00 AM PST) + + + | Narrative | Performed At | + + + | | | + + + CARDIOLOGY (10/12/2017 12:00 AM PST) + + + | Narrative | Performed At | + + + | | | + + + CAPILLARY BLOOD GLUCOSE (NO CHG), POC (10/11/2017 11:20 PM PST) + +---------+ + + + | Component | Value | Ref Range | Performed | Pathologist | | | | | At | Signature | + +---------+ + + + | BLOOD | 178 (H) | 70 - 99 [...] [facility] | [address] | [place], [place] | | | R[facility]ARE | [address] | [address] | | | TESTS | | | | + + + + + CAPILLARY BLOOD GLUCOSE (NO CHG), POC (10/11/2017 8:40 PM PST) + +---------+ + + + | Component [...] + | [facility] | [address] | [place], [place] | | | [facility]O [facility] | [address] | [address] | | | TESTS | | | | + + + + + CULTURE, SPUTUM (10/11/2017 5:45 PM PST) + + | Specimen | + + | Sputum | + + + + + | Narrative | Performed At | + + + | Culture Report: This culture has been discontinued. Gram | [facility] - | | Stain: Squamous epithelial cells in the specimen indicate the | AIRPORT - | | presence of significant oropharyngeal contamination. CRITICAL | [place] | | RESULTS Results called to and verified by: Vicki Reyes at phone # | | | [facility] on: 10/12/2017 8:10:02 AM PST by: [id number] | | + + + + + + + + | Performing | Address | City/State/Zipcode | Phone Number | | Organization | | | | + + + + + | [facility] - | [address] | [place] [address] | | | [place] | | | | + + + + + APTT (ACT. PART. THROMBO TIME) (10/11/2017 4:49 PM PST) + + + + + + | Component | Value | Ref Range | Performed | Pathologist | | | | | At | Signature | + + + + + + | APTT | 39.7 (H) | 26.0 - 36.0 | [facility] [...] | + + + + + | [facility] | [address] | [place] [address] | | | ИРИНА ANTOINE | [address] | | | + + + + + CBC (HEMOGRAM) ONLY (10/11/2017 12:43 PM PST) + + + + + + | Component | Value | Ref Range | Performed | Pathologist | | | | | At | Signature | + + + + + + | WHITE CELL | 7.76 | 3.50 - 10.80 | [facility] | | | COUNT | | K/cu mm | LABORATORY | | | | | | SERVICES, | | | | | | CORE | | + + + + + + | RED CELL | 4.14 (L) | 4.50 - 6.00 | [facility] | | | COUNT | | M/cu mm | LABORATORY | | | | | | SERVICES, | | | | | | CORE | | + + + + + + | HEMOGLOBIN | 12.5 (L) | 13.5 - 17.5 | [facility] [...] 88.4 | 80.0 - 96.0 fL | [facility] [...] 44.4 | 35.1 - 46.3 fL | [facility] | | | | | | LABORATORY | | | | | | SERVICES, | | | | | | CORE | | + + + + + + | PLATELET | 231 | 150 - 400 K/cu | [facility] [...] + | [facility] | [address] | [place] [address] | | | SERVICES, CORE | [address] | | | + + + + + APTT (ACT. PART. THROMBO TIME) (10/11/2017 12:43 PM PST) + + + + + + | Component | Value | Ref Range | Performed | Pathologist | | | | | At | Signature | + + + + + + | APTT | 45.6 (H) | 26.0 - 36.0 | [facility] [...] + | [facility] | [address] | [place] [address] | | | SERVICES, ИРИНА | [address] | | | + + + + + HEMOGLOBIN A1C, BLOOD (10/11/2017 12:43 PM PST) + + + + + + | Component | Value | Ref Range | Performed | Pathologist | | | | | At | Signature | + + + + + + | HEMOGLOBIN | 5.9 (H)Comment: Hgb A1C | <5.7 % | [facility] [...] | [facility] | | considered for monitoring terminal block assembler glycemic control in patients with: | LABORATORY | | Increased red cell turnover, certain hemoglobinopathies (e.g., HbS, | SERVICES, | | HbE, HbC and thalassemia syndromes), anemias, blood loss, chronic | SPECIAL IMM + | | liver disease and hemochromatosis (artefactually low HbA1c); iron | COAG | | deficiency anemia (artefactually high HbA1c due to enhanced glycation | | | of hemoglobin). Alternate forms of testing such as | | | fructosamine should be considered for monitoring senior care glycemic | | | control in patients with: Increased red cell turnover, certain | | | hemoglobinopathies (e.g., HbS, HbE, HbC and thalassemia | | | syndromes), anemias, blood loss, chronic liver disease and | | | hemochromatosis (artefactually low HbA1c); iron deficiency anemia | | | (artefactually high HbA1c due to enhanced glycation of hemoglobin). | | | | | + + + + + + + + | Performing | Address | City/State/Zipcode | Phone Number | | Organization | | | | + + + + + | [facility] | [address] [facility] | [place] [address] | | | SERVICES, SPECIAL | [address] | | | | IMM + COAG | | | | + + + + + TRANSTHORACIC ECHOCARDIOGRAM, ADULT (10/11/2017 11:47 AM PST) + + + + + + | Component | Value | Ref Range | Performed | Pathologist | | | | | At | Signature | + + + + + + | BIPLANE, EF | 32 | | [facility] | | | | | | OF | | | | | | CARDIOLOGY | | + + + + + + | EJECTION | 30 to 35 | | [facility] | | | FRACTION | | | OF | | | | | | CARDIOLOGY | | + + + + + + | LA | 3.9 | | [facility] | | | DIMENSION | | | OF | | | | | | CARDIOLOGY | | + + + + + + | LVIDD | 5.9 | | [facility] | | | | | | OF | | | | | | CARDIOLOGY | | + + + + + + | MV A VMAX | 0.7 | | [facility] [...] | RV TAPSE | 1.5 | | [facility] | | | | | | OF | | | | | | CARDIOLOGY | | + + + + + + | RV TDI S? | 9.0 | | [facility] | | | [...] Performed At | + + + | [facility] | [facility] | | [facility] Adult Echocardiography | CARDIOLOGY | | Laboratory [address] [place] [address], | | | [place] [address] Pt Name: | | | RON MCKEON Study Date/Time 10/11/2017 / 11:47:35 | | | AMMRN: [id number] Most recent | | | prior: 03/30/2017Acc #: [id number] No. | | | previous echos: 4DOB: 1955 61 years Heart | | | Rate: 84 bpmHeight: 69.0 in | | | Blood Pressure: 115/68 mm/HgWeight: 196.0 | | | lb Gender: | | | MBSA: 2.05 m2 Order | | | ID: [id number] Swim Coach: Shahab Sutton [facility] | | | Referring Provider: Kimmy LowPatient Location: 7CModalities | | | Performed: 2D, Color flow, Spectral Doppler and Lumason contrast.Study | | | Quality: Fair.Imaging Limitations: Patient size and body habitus. and | | | there is prominent lung artifact seen.Exam Indication: Chest | | | painHistory: 61 year old male with extensive PMHx including STEMI, | | | CAD, ICM, HTN, aflutter, and previous tobacco use disorder who | | | presents on transfer from [place] for consideration of complex PCI | | | vs. CABG for in-stent stenosis of previous PCI of both LCx and LM/LAD | | | stents after NSTEMI in the setting of sepsis last week. Patient | | | history has been obtained from the EHR Transthoracic Echocardiographic | | | Report | | | + | | | ---------+Final | | | Impressions: | | | | | | | | | | | | | | | | | | 1. The left ventricular cavity size is | | | normal. | | | 2. The LV function is severely | | | abnormal. | | | 3. Left ventricular systolic thickening is segmentally | | | abnormal (see comments | | | below). | | | 4. | | | Visually estimated left ventricular ejection fraction is 30 - | | | 35%. 5. RV cavity size is normal. RV global systolic | | | function is mildly reduced. 6. There is mild dilatation of the | | | ascending aorta. (See comments below). | | | | | | | | | 7. Compared to the most recent exam dated, 03/30/2017, | | | the LVEF is similar. | | | | | | | | | + | | | + Description of Findings: Cardiac Rhythm: | | | Normal sinus rhythm.Left Ventricle: The left ventricular cavity size | | | is normal. Visually estimated left ventricular ejection fraction is 30 | | | - 35%. The ejection fraction is 32.2 % as measured by Landry's | | | biplane method. The LV function is severely abnormal. Due to poor | | | endocardial definition, ultrasound contrast was used (Lumason).Left | | | Ventricular Wall Motion: The entire inferior septum, mid and apical | | | anterior septum, apical anterior segment, and apex are akinetic. The | | | basal anteroseptal segment, mid anterior segment, and mid inferior | | | segment are hypokinetic. All remaining scored segments are normal. | | | Left ventricular systolic thickening is segmentally abnormal.Right | | | Ventricle: Right ventricular cavity size is normal. The RV global | | | systolic function is mildly reduced. TAPSE measures 1.5cm. The RV TDI | | | s' velocity is 9cm/sec. Unable to calculate RVSP due to absence of | | | tricuspid regurgitation.Aortic Valve: The aortic valve is trileaflet | | | and normal in structure and function. No indication of aortic valve | | | regurgitation.Mitral Valve: The mitral valve is structurally normal. | | | No evidence of mitral valve stenosis. Mild mitral valve | | | regurgitation.Tricuspid Valve: The tricuspid valve is structurally | | | normal. No tricuspid regurgitation.Pulmonic Valve: The peak trans | | | pulmonic gradient is 5.3 mmHg.Aorta: There is mild dilatation of the | | | ascending aorta.Venous: Inferior vena cava is normal with normal | | | inspiratory collapse.Pericardium: No pericardial effusion is seen.2D | | | Measurements Doppler Measurements | | | 2D NL Values | | | Aortic MitralLVID(d) 5.91 cm | | | (3.5-5.7cm) Max Rohan Peak | | | E 0.71 m/sLVID(s) 5.13 cm | | | Mean grad Peak A 0.72 | | | m/sIVS(d) 1.01 cm (0.6-1.1cm) LVOT Rohan 0.91 m/s E/A | | | Ratio 0.99LVPW(d) 1.05 cm | | | (0.6-1.1cm) TDI | | | (E/e') 8.7LA A/Ps 2D 3.90 cm (2.7-3.9cm) LVOT Diam 2.20 | | | cm MV mn | | | gd | | | Tricuspid PulmonicBiplane EF 32.2 | | | % TR Vmax PV | | | Vmax 1.2 | | | m/s RA | | | Press 3 mmHg RVOT VTI 15.4 cm | | | | | | Aorta: | | | Index: Ao | | | Sinus 3.40 cm (2.1-3.5cm) 16.6 | | | mm/m2 Asc | | | Ao (prox) 3.70 cm 18.1 mm/n8Ezjiofykoo of | | | chamber size and geometry is accomplished through the incorporation of | | | linear, volumetric, and indexed values Wall Scoring: Report | | | electronically signed by: [id number] Khurram Bedoya MD (10/11/2017, | | | 12:59:49 PM) Final (Updated) | | | Final (Updated) | | + + + + + | Procedure Note | + + | Interface, Cardiology Results - 10/11/2017 1:00 PM [facility] | | [facility] Echocardiography Laboratory [address] [place] [address] | | [place], [place] [address] Pt Name: RON Chaudhary | | MIKE Study Date/Time 10/11/2017 / 11:47:35 AMMRN: [id number] Most | | recent prior: 03/30/2017Acc #: [id number] No. previous echos: 4DOB: | | 1955 61 years Heart Rate: 84 bpmHeight: 69.0 in Blood | | Pressure: 115/68 mm/HgWeight: 196.0 lb Gender: MBSA: | | 2.05 m2 Order ID: [id number] Swim Coach: Shahab Sutton RDReferring | | Provider: Kimmy LowPatient Location: Modalities Performed: 2D, Color flow, | | Spectral Doppler and Lumason contrast.Study Quality: Fair.Imaging Limitations: Patient | | size and body habitus. and there is prominent lung artifact seen.Exam Indication: Chest | | painHistory: 61 year old male with extensive PMHx including STEMI, CAD, ICM, HTN, | | aflutter, and previous tobacco use disorder who presents on transfer from [place] | | for consideration of complex PCI [...] Ao (prox) | | 3.70 cm 18.1 mm/b5Cnkszvskbu of chamber size and geometry is accomplished | | through the incorporation of linear, volumetric, and indexed values Wall Scoring: Report | | electronically signed by: [id number] Khurram Bedoya MD (10/11/2017, 12:59:49 PM) | [...] | | | |Report electronically signed by: [id number] Khurram Bedoya MD (10/11/2017, 12:59:49 | |PM) | | | | | | | | Final (Updated) | + + + + + + + | Performing | Address | City/State/Zipcode | Phone Number | | Organization | | | | + + + + + | [facility] | [address] | [place], [place] | | | CARDIOLOGY | [address] | [address] | | + + + + + X-RAY PORTABLE CHEST 1 VIEW (10/11/2017 11:24 AM PST) + + | Specimen | + + | | + + + + + | Narrative | Performed At | + + + | STUDY: [place] CHEST 1 VIEW COMPARISON: 03/21/17. HISTORY: Cough. | [facility] | | FINDINGS: The increased lung volumes. Patchy groundglass | RADIOLOGY VOICE | | opacities are observed in the left lateral lung base with silhouetting | RECOGNITION | | of the diaphragm. There may be a small left pleural effusion. No | | | right pleural effusion no obvious pneumothorax is seen. The remaining | | | lung zones are clear. The cardiac and mediastinal borders are normal. | | | IMPRESSION: Patchy groundglass opacities in the left lower | | | lobe may represent developing pneumonia in the appropriate clinical | | | setting. I have personally reviewed the images and, if | | | necessary, edited the report. I agree with the report as now | | | presented. | | + + + + + | Procedure Note | + + | Service Account, [facility] In Interface - 10/11/2017 1:51 PM PST STUDY: [place] CHEST 1 | | VIEW COMPARISON: 03/21/17.HISTORY: [...] | | | + +---------+ + + CBC (HEMOGRAM) ONLY (10/11/2017 6:31 AM PST) + + + + + + | Component | Value | Ref Range | Performed | Pathologist | | | | | At | Signature | + + + + + + | WHITE CELL | 6.72 | 3.50 - 10.80 | [facility] | | | COUNT | | K/cu mm | LABORATORY | | | | | | SERVICES, | | | | | | CORE | | + + + + + + | RED CELL | 3.85 (L) | 4.50 - 6.00 | [facility] | | | COUNT | | M/cu mm | LABORATORY | | | | | | SERVICES, | | | | | | CORE | | + + + + + + | HEMOGLOBIN | 11.6 (L) | 13.5 - 17.5 | [facility] [...] 88.8 | 80.0 - 96.0 fL | [facility] [...] 44.7 | 35.1 - 46.3 fL | [facility] [...] + | [facility] | [address] | [place] [address] | | | SERVICES, CORE | [address] | | | + + + + + HEPARIN, EITHER STANDARD / LMW, BLOOD (10/11/2017 6:31 AM PST) + +-------+ + + + | Component | Value | Ref Range | Performed | Pathologist | | | | | At | Signature | + +-------+ + + + | HEPARIN, | 0.38 | U/mL | [facility] | | | [...] Dalteparin, LMWH: 0.70 - 1.20 U/mL | AR[facility], CORE | | Tinzaparin, LMWH: Therapeutic range [...] | + + + + + | [facility] | [address] | [place] [address] | | | ИРИНА ANTOINE | [address] | | | + + + + + RENAL FUNCTION SET (NA,K,CL,CO2,BUN,CREAT,GLUC,CA,PHOS,ALB ) (10/11/2017 6:31 AM PST) + +---------+ + + + | Component | Value | Ref Range | Performed | Pathologist | | | | | At | Signature | + +---------+ + + + | GLUCOSE, | 104 (H) | 70 - 99 mg/dL | [facility] | | | PLASMA | | | LABORATORY | | | (LAB) | | | SERVICES, | | | | | | CORE | | + +---------+ + + + | BUN, PLASMA | 20 | 6 - 20 mg/dL | [facility] | | | (LAB) | | | LABORATORY | | | | | | SERVICES, | | | | | | CORE | | + +---------+ + + + | CREATININE | 1.05 | 0.70 - 1.30 | [facility] | | | PLASMA | | mg/dL | LABORATORY | | | (LAB) | | | SERVICES, | | | | | | CORE | | + +---------+ + + + | EGFR | >60 | >60 mL/min | [facility] | | | - | | | LABORATORY | | | BELGIAN | | | SERVICES, | | | | | | CORE | | + +---------+ + + + | EGFR NON | >60 | >60 mL/min | [facility] | | | -SOREN | | | LABORATORY | | | RICAN | | | SERVICES, | | | | | | CORE | | + +---------+ + + + | SODIUM, | 141 [...] +---------+ + + + | CHLORIDE, | 107 [...] +---------+ + + + | CALCIUM, | 8.2 (L) | 8.6 - 10.2 | [facility] | | | PLASMA | | mg/dL | LABORATORY | | | (LAB) | | | SERVICES, | | | | | | CORE | | + +---------+ + + + | CALCIUM(ALB | 9.2 | 8.6 - 10.2 | [facility] | | | CORRECTED) | | mg/dL | LABORATORY | | | | | | SERVICES, | | | | | | CORE | | + +---------+ + + + | ALBUMIN, | 2.8 (L) | 3.5 - 4.7 g/dL | [facility] | | | PLASMA | | | LABORATORY | | | (LAB) | | | SERVICES, | | | | | | CORE | | + +---------+ + + + | PHOSPHORUS, | 3.8 | 2.4 - 4.7 mg/dL | [facility] [...] 9 | 4 - 11 mmol/L | [facility] | | | | [...] | + + + + + | [facility] | [address] | [place] [address] | | | SERVICES, ИРИНА | [address] | | | + + + + + CARDIOLOGY (10/11/2017 12:00 AM PST) + + + | Narrative | Performed At | + + + | | | + + + CBC (HEMOGRAM) ONLY (10/10/2017 11:27 PM PST) + + + + + + | Component | Value | Ref Range | Performed | Pathologist | | | | | At | Signature | + + + + + + | WHITE CELL | 6.66 | 3.50 - 10.80 | [facility] | | | COUNT | | K/cu mm | LABORATORY | | | | | | SERVICES, | | | | | | CORE | | + + + + + + | RED CELL | 3.92 (L) | 4.50 - 6.00 | [facility] | | | COUNT | | M/cu mm | LABORATORY | | | | | | SERVICES, | | | | | | CORE | | + + + + + + | HEMOGLOBIN | 11.8 (L) | 13.5 - 17.5 | [facility] [...] 87.5 | 80.0 - 96.0 fL | [facility] | | | | | | LABORATORY | | | | | | SERVICES, | | | | | | CORE | | + + + + + + | MCHC | 34.4 | 33.0 - 35.5 | [facility] | | | | | g/dL | LABORATORY | | | | | | SERVICES, | | | | | | CORE | | + + + + + + | RDW SD | 43.7 | 35.1 - 46.3 fL | [facility] [...] + | [facility] | [address] | [place] [address] | | | SERVICES, CORE | [address] | | | + + + + + APTT (ACT. PART. THROMBO TIME) (10/10/2017 11:27 PM PST) + +-------+ + + + | Component | Value | Ref Range | Performed | Pathologist | | | | | At | Signature | + +-------+ + + + | APTT | 29.5 | 26.0 - 36.0 | [facility] | [...] + | [facility] | [address] | [place] [address] | | | ИРИНА ANTOINE | [address] | | | + + + + + INR (10/10/2017 11:27 PM PST) + +-------+ + + + | Component | Value | Ref Range | Performed | Pathologist | | | | | At | Signature | + +-------+ + + + | INR | 1.08 | 0.90 - 1.20 INR | [facility] [...] | + + + + + | [facility] | [address] [facility] | [place] [address] | | | SERVICES, CORE | [address] | | | + + + + + LIPID SET (TRIG, T CHOL, HDL, CALC LDL) (10/10/2017 11:27 PM PST) + +---------+ + + + | Component | Value | Ref Range | Performed | Pathologist | | | | | At | Signature | + +---------+ + + + | CHOLESTEROL | 89 | <200 mg/dL | [facility] | | | (LAB) | | | LABORATORY | | | | | | SERVICES, | | | | | | CORE | | + +---------+ + + + | TRIGLYCERID | 131 | <150 mg/dL | [facility] | | | ES | | | LABORATORY | | | | | | SERVICES, | | | | | | CORE | | + +---------+ + + + | HDL | 21 (L) | >40 mg/dL | [facility] | | | CHOLESTEROL | | | LABORATORY | | | | | | SERVICES, | | | | | | CORE | | + +---------+ + + + | HDL CMNT | No Hemo | | [facility] | | | | | | LABORATORY | | | | | | SERVICES, | | | | | | CORE | | + +---------+ + + + | LDL | 42 | <100 mg/dL | [facility] | | | CHOLESTEROL | | | LABORATORY | | | , | | | SERVICES, | | | CALCULATED | | | CORE | | + +---------+ + + + | VLDL | 26 | <31 mg/dL | [facility] | | | CHOLESTEROL | | | LABORATORY | | | , | | | SERVICES, | | | CALCULATED | | | CORE | | + +---------+ + + + | NON-HDL | 68 | <130 mg/dL | [facility] | | | [facility] | | | LABORATORY | | | | | | SERVICES, | | | | | | CORE | | + +---------+ + + + + + | Specimen | + + | Blood | + + + + + | Narrative | Performed At | + + + | Cholesterol Reference Range: Desirable: <200 | [facility] | | mg/dL Borderline High: 200 - 239 mg/dL | LABORATORY | | High: >=240 mg/dL | SERVICES, CORE | | LDL Cholesterol Reference Range: | | | Optimal: <100 mg/dL Near | | | Optimal: 100-129 mg/dL Borderline High: 130-159 mg/dL | | | High: 160-189 mg/dL | | | Very High: >=190 mg/dL non-HDL Cholesterol | | | Reference Range: Optimal: <130 mg/dL | | | Near Optimal: 130-159 mg/dL Borderline | | | High: 160-189 mg/dL High: | | | 190-209 mg/dL Very High: >=210 mg/dL | | | Triglyceride Reference Range: Normal: <150 | | | mg/dL Borderline High: 150-199 mg/dL | | | High: 200-499 mg/dL Very | | | High: >=500 mg/dL HDL Reference Range: High | | | Risk: <40 mg/dL Desirable: >=60 mg/dL | | + + + + + + + + | Performing | Address | City/State/Zipcode | Phone Number | | Organization | | | | + + + + + | [facility] | [id number] | [place] [address] | | | SERVICES, CORE | [address] | | | + + + + + 12 LEAD ECG (10/10/2017 11:13 PM PST) + + + + + + | Component | Value | Ref Range | Performed | Pathologist | | | | | At | Signature | + + + + + + | VENTRICULAR | 79 | bpm | [facility] | | | RATE | | | OF | | | | | | CARDIOLOGY | | + + + + + + | ATRIAL RATE | 79 | ms | [facility] | | | | | | OF | | | | | | CARDIOLOGY | | + + + + + + | P-R | 161 | ms | [facility] | | | INTERVAL | | | OF | | | | | | CARDIOLOGY | | + + + + + + | P AXIS | 48 | deg | [facility] | | | | | | OF | | | | | | CARDIOLOGY | | + + + + + + | QRS | 146 | ms | [facility] | | | DURATION | | | OF | | | | | | CARDIOLOGY | | + + + + + + | QT | 445 | ms | [facility] | | | | | | OF | | | | | | CARDIOLOGY | | + + + + + + | QTCB | 511 | ms | [facility] | | | | | | OF | | | | | | CARDIOLOGY | | + + + + + + | R AXIS | 264 | deg | [facility] | | | | | | OF | | | | | | CARDIOLOGY | | + + + + + + | T AXIS | 105 | deg | [facility] | | | | | | OF | | | | | | CARDIOLOGY | | + + + + + + | ECG | Sinus rhythm | | [facility] | | | IMPRESSION | | | OF | | | | | | CARDIOLOGY | | + + + + + + | ECG | Left bundle branch block | | [facility] | | | IMPRESSION | | | OF | | | | | | CARDIOLOGY | | + + + + + + | ECG | Prolonged QT interval- | | [facility] | | | IMPRESSION | ABNORMAL ECG - | | OF | | | | | | CARDIOLOGY | | + + + + + + | ECG | Electronically signed | | [facility] | | | IMPRESSION | by: LAURO JORGENSEN | | OF | | | | 10-12-2017 13:31:46 | | CARDIOLOGY | | + + [...] + | [facility] | [id number] | [place], [place] | | | CARDIOLOGY | [address] | [id number] | | + + + + + ORDERS OTHER (10/10/2017 12:00 AM PST) + + + | Narrative | Performed At | + + + | | | + + + CARDIOLOGY (10/10/2017 12:00 AM PST) + + + | Narrative | Performed At | + + + | | | + + + CARDIOLOGY (10/10/2017 12:00 AM PST) + + + | Narrative | Performed At | + + + | | | + + + CARDIOLOGY (10/10/2017 12:00 AM PST) + + + | Narrative | Performed At | + + + | | | + + + documented in this encounter Visit Diagnoses + + | Diagnosis | + + | NSTEMI (non-ST elevated myocardial infarction) (HCC) - Primary Acute myocardial | | infarction, subendocardial infarction, episode of care unspecified | + + | Coronary artery disease involving [place] coronary artery of [place] heart, angina | | presence unspecified | + + | At risk for electrolyte imbalance Other specified conditions influencing health | | status | + + | Ischemic cardiomyopathy Other specified forms of chronic ischemic heart disease | + + | 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) | + + | Non-ST elevation (NSTEMI) myocardial infarction (HCC) Acute myocardial infarction, | | subendocardial infarction, episode of care unspecified | + + | Tobacco use Tobacco use disorder | + + | Hypertension, unspecified type | + + | Hypercholesterolemia Pure hypercholesterolemia | + + | Abdominal aortic aneurysm (AAA) without rupture (HCC) | + + | Stenosis of coronary artery stent, initial encounter | + + | Coronary artery disease Coronary atherosclerosis of unspecified type of vessel, | | [place] or graft | + + | Paroxysmal atrial flutter (HCC) Atrial flutter | + + | Chronic systolic congestive heart failure (HCC) Chronic systolic heart failure | + + | Encounter for insertion of cardiac resynchronization therapy defibrillator ([employer]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) | + + | Influenza, pneumonia Influenza with pneumonia | + + | Prediabetes Other abnormal glucose | + + documented in this encounter Administered Medications + +--------+ +--------+------+------+ | Medication Order | MAR | Action | Dose | Rate | Site | | | Action | Date | | | | + +--------+ +--------+------+------+ | acetaminophen (TYLENOL) tablet | Given | 10/17/19 | 650 mg | | | | 650 mg 650 mg, oral, EVERY 4 | | 18 6:24 | | | | | HOURS NEEDED, Starting Sat | | PM PST | | | | | 10/10/17 at 2101, Until 10/18/17 | | | | | | | at 0148, mild pain, headache | | | | | | + +--------+ +--------+------+------+ +-------+ +--------+---+---+ | Given | 10/17/19 | 650 mg | | | | | 18 1:27 | | | | | | PM PST | | | | +-------+ +--------+---+---+ | Given | 10/17/19 | 650 mg | | | | | 18 8:38 | | | | | | AM PST | | | | +-------+ +--------+---+---+ +---+---+ | | | +---+---+ + +-------+ +--------+---+---+ | amiodarone (CORDARONE) tablet | Given | 10/17/19 | 200 mg | | | | 200 mg 200 mg, oral, DAILY, | | 18 8:39 | | | | | First dose on 10/11/17 at 0900, | | AM PST | | | | | Until Discontinued | | | | | | + +-------+ +--------+---+---+ +-------+ +--------+---+---+ | Given | 10/16/19 | 200 mg | | | | | 18 8:37 | | | | | | AM PST | | | | +-------+ +--------+---+---+ | Given | 10/15/19 | 200 mg | | | | | 18 8:17 | | | | | | AM PST | | | | +-------+ +--------+---+---+ +---+---+ | | | +---+---+ + +-------+ +-------+---+---+ | aspirin chewable tablet 81 mg | Given | 10/17/19 | 81 mg | | | | 81 mg, oral, DAILY, First dose on | | 18 8:39 | | | | | 10/11/17 at 0900, Until | | AM PST | | | | | Discontinued | | | | | | + +-------+ +-------+---+---+ +-------+ +-------+---+---+ | Given | 10/16/19 | 81 mg | | | | | 18 8:37 | | | | | | AM PST | | | | +-------+ +-------+---+---+ | Given | 10/15/19 | 81 mg | | | | | 18 8:17 | | | | | | AM PST | | | | +-------+ +-------+---+---+ +---+---+ | | | +---+---+ + +-------+ +-------+---+---+ | atorvastatin (LIPITOR) tablet | Given | 10/17/19 | 40 mg | | | | 40 mg 40 mg, oral, DAILY, First | | 18 8:39 | | | | | dose on 10/11/17 at 0900, Until | | AM PST | | | | | Discontinued | | | | | | + +-------+ +-------+---+---+ +-------+ +-------+---+---+ | Given | 10/16/19 | 40 mg | | | | | 18 8:37 | | | | | | AM PST | | | | +-------+ +-------+---+---+ | Given | 10/15/19 | 40 mg | | | | | 18 8:17 | | | | | | AM PST | | | | +-------+ +-------+---+---+ +---+---+ | | | +---+---+ + +-------+ +---+---+---+ | bacitracin-NS IRRIGATION | Given | 10/16/19 | | | | | irrigation, INTRAPROCEDURE PRN, | | 18 4:29 | | | | | Starting 10/16/17 at 1629, | | PM PST | | | | | Until Thu10/16/17 at 1629 | | | | | | + +-------+ +---+---+---+ +---+---+ | | | +---+---+ + +-------+ +------+---+---+ | bupivacaine (PF) | Given | 10/16/19 | 4 mL | | | | (MARCAINE,SENSORCAINE-MPF) 0.25 % | | 18 1:11 | | | | | (2.5 mg/mL) injection | | PM PST | | | | | infiltration, INTRAPROCEDURE PRN, | | | | | | | Starting 10/16/17 at 1311, | | | | | | | Until 10/16/17 at 1311 | | | | | | + +-------+ +------+---+---+ +---+---+ | | | +---+---+ + +-------+ + +---+---+ | carvedilol (COREG) tablet 3.125 | Given | 10/13/19 | 3.125 mg | | | | mg 3.125 mg, oral, TWICE DAILY | | 18 8:31 | | | | | WITH MEALS, First dose on Sat | | AM PST | | | | | 10/10/17 at 2130, Until | | | | | | | Discontinued | | | | | | + +-------+ + +---+---+ +-------+ + +---+---+ | Given | 10/12/19 | 3.125 mg | | | | | 18 4:35 | | | | | | PM PST | | | | +-------+ + +---+---+ | Given | 10/12/19 | 3.125 mg | | | | | 18 8:36 | | | | | | AM PST | | | | +-------+ + +---+---+ +---+---+ | | | +---+---+ + +-------+ + +---+---+ | carvedilol (COREG) tablet 3.125 | Given | 10/15/19 | 3.125 mg | | | | mg 3.125 mg, oral, TWICE DAILY | | 18 9:37 | | | | | WITH MEALS, First dose on Radha | | AM PST | | | | | 10/15/17 at 0915, Until | | | | | | | Discontinued | | | | | | + +-------+ + +---+---+ +---+---+ | | | +---+---+ + +-------+ + +---+---+ | carvedilol (COREG) tablet 3.125 | Given | 10/16/19 | 3.125 mg | | | | mg 3.125 mg, oral, TWICE DAILY | | 18 8:37 | | | | | WITH MEALS, First dose on Thu | | AM PST | | | | | 10/16/17 at 0730, Until | | | | | | | Discontinued | | | | | | + +-------+ + +---+---+ +---+---+ | | | +---+---+ + +-------+ +---------+---+---+ | carvedilol (COREG) tablet 6.25 | Given | 10/14/19 | 6.25 mg | | | | mg 6.25 mg, oral, TWICE DAILY | | 18 4:51 | | | | | WITH MEALS, First dose on Thu | | PM PST | | | | | 10/13/17 at 1700, Until | | | | | | | Discontinued | | | | | | + +-------+ +---------+---+---+ +-------+ +---------+---+---+ | Given | 10/14/19 | 6.25 mg | | | | | 18 8:01 | | | | | | AM PST | | | | +-------+ +---------+---+---+ | Given | 10/13/19 | 6.25 mg | | | | | 18 5:15 | | | | | | PM PST | | | | +-------+ +---------+---+---+ +---+---+ | | | +---+---+ + +---------+ +-----+---+---+ | ceFAZolin IV 2 gram in dextrose | New Bag | 10/17/19 | 2 g | | | | (RTU) 2 g, intravenous, EVERY 8 | | 18 8:57 | | | | | HOURS, 2 doses, First dose on | | AM PST | | | | | 10/17/17 at 0100, Last dose on | | | | | | | 10/17/17 at 0900 | | | | | | + +---------+ +-----+---+---+ +---------+ +-----+-------+---+ | New Bag | 10/17/19 | 2 g | 100 | | | | 18 1:37 | | mL/hr | | | | AM PST | | | | +---------+ +-----+-------+---+ +---+---+ | | | +---+---+ + +-------+ +--------+---+---+ | cefDINir (OMINCEF) capsule 300 | Given | 10/12/19 | 300 mg | | | | mg 300 mg, oral, TWICE DAILY, | | 18 8:59 | | | | | doses, First dose on 10/11/17 | | PM PST | | | | | at 0900, Last dose on 10/12/17 | | | | | | | at 2100 | | | | | | + +-------+ +--------+---+---+ +-------+ +--------+---+---+ | Given | 10/12/19 | 300 mg | | | | | 18 10:07 | | | | | | AM PST | | | | +-------+ +--------+---+---+ | Given | 10/11/19 | 300 mg | | | | | 18 9:33 | | | | | | PM PST | | | | +-------+ +--------+---+---+ +---+---+ | | | +---+---+ + +-------+ +--------+---+---+ | cholecalciferol (Vitamin D3) | Given | 10/17/19 | 1,000 | | | | (VITAMIN D-3) tablet 1,000 Units | | 18 8:40 | Units | | | | 1,000 Units, oral, DAILY, First | | AM PST | | | | | dose on 10/11/17 at 0900, Until | | | | | | | Discontinued | | | | | | + +-------+ +--------+---+---+ +-------+ +--------+---+---+ | Given | 10/16/19 | 1,000 | | | | | 18 8:37 | Units | | | | | AM PST | | | | +-------+ +--------+---+---+ | Given | 10/15/19 | 1,000 | | | | | 18 8:17 | Units | | | | | AM PST | | | | +-------+ +--------+---+---+ +---+---+ | | | +---+---+ + +-------+ +--------+---+---+ | clopidogrel (PLAVIX) tablet 600 | Given | 10/14/19 | 600 mg | | | | mg 600 mg, oral, ONCE, 1 dose, | | 18 5:55 | | | | | 10/14/17 at 1645 | | PM PST | | | | + +-------+ +--------+---+---+ +---+---+ | | | +---+---+ + +-------+ +-------+---+---+ | clopidogrel (PLAVIX) tablet 75 | Given | 10/17/19 | 75 mg | | | | mg 75 mg, oral, DAILY, First | | 18 8:39 | | | | | dose on Radha 10/15/17 at 0900, Until | | AM PST | | | | | Discontinued | | | | | | + +-------+ +-------+---+---+ +-------+ +-------+---+---+ | Given | 10/16/19 | 75 mg | | | | | 18 8:37 | | | | | | AM PST | | | | +-------+ +-------+---+---+ | Given | 10/15/19 | 75 mg | | | | | 18 8:17 | | | | | | AM PST | | | | +-------+ +-------+---+---+ +---+---+ | | | +---+---+ + +-------+ +--------+---+---+ | fentaNYL (SUBLIMAZE) injection | Given | 10/15/19 | 25 mcg | | | | intravenous, INTRAPROCEDURE PRN, | | 18 11:21 | | | | | Starting Radha 10/15/17 at 1121, | | AM PST | | | | | Until Radha 10/15/17 at 1121 | | | | | | + +-------+ +--------+---+---+ +---+---+ | | | +---+---+ + +-------+ +--------+---+---+ | fentaNYL (SUBLIMAZE) injection | Given | 10/15/19 | 25 mcg | | | | intravenous, INTRAPROCEDURE PRN, | | 18 11:31 | | | | | Starting Radha 10/15/17 at 1131, | | AM PST | | | | | Until Radha 10/15/17 at 1131 | | | | | | + +-------+ +--------+---+---+ +---+---+ | | | +---+---+ + +-------+ +--------+---+---+ | fentaNYL (SUBLIMAZE) injection | Given | 10/15/19 | 25 mcg | | | | intravenous, INTRAPROCEDURE PRN, | | 18 11:42 | | | | | Starting Radha 10/15/17 at 1142, | | AM PST | | | | | Until Radha 10/15/17 at 1142 | | | | | | + +-------+ +--------+---+---+ +---+---+ | | | +---+---+ + +-------+ +--------+---+---+ | fentaNYL (SUBLIMAZE) injection | Given | 10/15/19 | 25 mcg | | | | intravenous, INTRAPROCEDURE PRN, | | 18 12:42 | | | | | Starting Radha 10/15/17 at 1242, | | PM PST | | | | | Until Radha 10/15/17 at 1242 | | | | | | + +-------+ +--------+---+---+ +---+---+ | | | +---+---+ + +-------+ +--------+---+---+ | gabapentin (NEURONTIN) capsule | Given | 10/17/19 | 300 mg | | | | 300 mg 300 mg, oral, THREE TIMES | | 18 4:05 | | | | | DAILY, First dose on 10/11/17 | | PM PST | | | | | at 1700, Until Discontinued | | | | | | + +-------+ +--------+---+---+ +-------+ +--------+---+---+ | Given | 10/17/19 | 300 mg | | | | | 18 8:40 | | | | | | AM PST | | | | +-------+ +--------+---+---+ | Given | 10/16/19 | 300 mg | | | | | 18 9:45 | | | | | | PM PST | | | | +-------+ +--------+---+---+ +---+---+ | | | +---+---+ + +-------+ +--------+---+---+ | heparin 1,000 unit/mL injection | Given | 10/15/19 | 5,000 | | | | intravenous, INTRAPROCEDURE | | 18 11:50 | Units | | | | PRN, Starting Radha 10/15/17 at 1150, | | AM PST | | | | | Until Radha 10/15/17 at 1150 | | | | | | + +-------+ +--------+---+---+ +---+---+ | | | +---+---+ + +-------+ +--------+---+---+ | heparin 1,000 unit/mL injection | Given | 10/15/19 | 2,000 | | | | intravenous, INTRAPROCEDURE | | 18 12:07 | Units | | | | PRN, Starting Radha 10/15/17 at 1207, | | PM PST | | | | | Until Radha 10/15/17 at 1207 | | | | | | + +-------+ +--------+---+---+ +---+---+ | | | +---+---+ + +-------+ +--------+---+---+ | heparin 1,000 unit/mL injection | Given | 10/15/19 | 1,500 | | | | intravenous, INTRAPROCEDURE | | 18 12:20 | Units | | | | PRN, Starting Radha 10/15/17 at 1220, | | PM PST | | | | | Until [facility] 10/15/17 at 1220 | | | | | | + +-------+ +--------+---+---+ +---+---+ | | | +---+---+ + +---------+ + + +---+ | heparin 1,000 units/500 mL (2 | New Bag | 10/16/19 | 20 mL/hr | 20 mL/hr | | | units/mL) in NaCl 0.9 % IV | | 18 11:35 | | | | | solution intravenous, | | AM PST | | | | | INTRAPROCEDURE CONTINUOUS PRN, | | | | | | | Starting Thu10/16/17 at 1135, | | | | | | | Until 10/16/17 at 1156 | | | | | | + +---------+ + + +---+ +---+---+ | | | +---+---+ + + + +--------+---+---+ | heparin bolus from continuous | Bolus | 10/10/19 | 7,150 | | | | infusion 7,150 Units | from | 18 11:56 | Units | | | | intravenous, ONCE, 1 dose, Sat | Same Bag | PM PST | | | | | 10/10/17 at 2330 | | | | | | + + + +--------+---+---+ +---+---+ | | | +---+---+ + + + + +-------+---+ | heparin in D5W 25,000 Units/250 | Rate/Dos | 10/11/19 | 1,350 | 13.5 | | | mL (100 Units/mL) IV infusion | e Verify | 18 7:35 | Units/hr | mL/hr | | | (RTU) 1-2,500 Units/hr (0.01-25 | | AM PST | | | | | mL/hr), intravenous, CONTINUOUS, | | | | | | | Starting 10/10/17 at 2330, | | | | | | | Until 10/11/17 at 1006 | | | | | | + + + + +-------+---+ +---------+ + +-------+---+ | New Bag | 10/10/19 | 1,350 | 13.5 | | | | 18 11:53 | Units/hr | mL/hr | | | | PM PST | | | | +---------+ + +-------+---+ +---+---+ | | | +---+---+ + + + + + +---+ | heparin in D5W 25,000 Units/250 | Rate/Dos | 10/12/19 | 1,200 | 12 mL/hr | | | mL (100 Units/mL) IV infusion | e Verify | 18 8:28 | Units/hr | | | | (RTU) 1-2,500 Units/hr (0.01-25 | | AM PST | | | | | mL/hr), intravenous, CONTINUOUS, | | | | | | | Starting 10/11/17 at 1045, | | | | | | | Until 10/12/17 at 1209 | | | | | | + + + + + +---+ + + + + +---+ | Rate/Dose Verify | 10/12/19 | 1,200 | 12 mL/hr | | | | 18 7:12 | Units/hr | | | | | AM PST | | | | + + + + +---+ | Rate/Dose Verify | 10/12/19 | 1,200 | 12 mL/hr | | | | 18 6:38 | Units/hr | | | | | AM PST | | | | + + + + +---+ +---+---+ | | | +---+---+ + +-------+ +--------+---+---+ | iohexol (OMNIPAQUE) 300 mg | Given | 10/15/19 | 110 mL | | | | iodine/mL INTRAPROCEDURE PRN, | | 18 1:05 | | | | | Starting Radha 10/15/17 at 1305, | | PM PST | | | | | Until Radha 10/15/17 at 1305 | | | | | | + +-------+ +--------+---+---+ +---+---+ | | | +---+---+ + +-------+ +------+---+---+ | iohexol (OMNIPAQUE) 300 mg | Given | 10/16/19 | 5 mL | | | | iodine/mL INTRAPROCEDURE PRN, | | 18 2:28 | | | | | Starting 10/16/17 at 1427, | | PM PST | | | | | Until Thu10/16/17 at 1428 | | | | | | + +-------+ +------+---+---+ +-------+ +------+---+---+ | Given | 10/16/19 | 7 mL | | | | | 18 2:27 | | | | | | PM PST | | | | +-------+ +------+---+---+ +---+---+ | | | +---+---+ + +-------+ +--------+---+---+ | ketorolac (ACULAR) 0.5 % | Given | 10/17/19 | 1 drop | | | | ophthalmic drops 1 drop 1 drop, | | 18 6:26 | | | | | Left Eye, FOUR TIMES DAILY, First | | PM PST | | | | | dose on Thu10/14/17 at 1915, | | | | | | | Until Discontinued | | | | | | + +-------+ +--------+---+---+ +-------+ +--------+---+---+ | Given | 10/17/19 | 1 drop | | | | | 18 1:28 | | | | | | PM PST | | | | +-------+ +--------+---+---+ | Given | 10/17/19 | 1 drop | | | | | 18 9:30 | | | | | | AM PST | | | | +-------+ +--------+---+---+ +---+---+ | | | +---+---+ + +-------+ +------+---+---+ | lidocaine (XYLOCAINE) 10 mg/mL | Given | 10/15/19 | 1 mL | | | | (1 %) injection infiltration, | | 18 11:36 | | | | | INTRAPROCEDURE PRN, Starting Radha | | AM PST | | | | | 10/15/17 at 1136, Until Radha 10/15/17 | | | | | | | at 1136 | | | | | | + +-------+ +------+---+---+ +---+---+ | | | +---+---+ + +-------+ +------+---+---+ | lidocaine (XYLOCAINE) 10 mg/mL | Given | 10/15/19 | 6 mL | | | | (1 %) injection infiltration, | | 18 11:39 | | | | | INTRAPROCEDURE PRN, Starting Radha | | AM PST | | | | | 10/15/17 at 1139, Until Radha 10/15/17 | | | | | | | at 1139 | | | | | | + +-------+ +------+---+---+ +---+---+ | | | +---+---+ + +-------+ +------+---+---+ | lidocaine (XYLOCAINE) 10 mg/mL | Given | 10/15/19 | 3 mL | | | | (1 %) injection infiltration, | | 18 11:50 | | | | | INTRAPROCEDURE PRN, Starting Radha | | AM PST | | | | | 10/15/17 at 1150, Until Radha 10/15/17 | | | | | | | at 1150 | | | | | | + +-------+ +------+---+---+ +---+---+ | | | +---+---+ + +-------+ +------+---+---+ | lidocaine (XYLOCAINE) 10 mg/mL | Given | 10/16/19 | 5 mL | | | | (1 %) injection infiltration, | | 18 11:18 | | | | | INTRAPROCEDURE PRN, Starting Fri | | AM PST | | | | | 10/16/17 at 1118, Until 10/16/17 | | | | | | | at 1118 | | | | | | + +-------+ +------+---+---+ +---+---+ | | | +---+---+ + +-------+ +------+---+---+ | lidocaine (XYLOCAINE) 10 mg/mL | Given | 10/16/19 | 4 mL | | | | (1 %) injection infiltration, | | 18 1:11 | | | | | INTRAPROCEDURE PRN, Starting Fri | | PM PST | | | | | 10/16/17 at 1311, Until 10/16/17 | | | | | | | at 1311 | | | | | | + +-------+ +------+---+---+ +---+---+ | | | +---+---+ + +-------+ +------+---+---+ | melatonin tablet 3 mg 3 mg, | Given | 10/16/19 | 3 mg | | | | oral, EVERY EVENING, First dose | | 18 11:18 | | | | | on 10/10/17 at 2245, Until | | PM PST | | | | | Discontinued | | | | | | + +-------+ +------+---+---+ +-------+ +------+---+---+ | Given | 10/15/19 | 3 mg | | | | | 18 9:40 | | | | | | PM PST | | | | +-------+ +------+---+---+ | Given | 10/14/19 | 3 mg | | | | | 18 7:45 | | | | | | PM PST | | | | +-------+ +------+---+---+ +---+---+ | | | +---+---+ + +-------+ +-------+---+---+ | metoprolol succinate | Given | 10/17/19 | 25 mg | | | | (TOPROL-XL) tablet 25 mg 25 mg, | | 18 9:32 | | | | | oral, DAILY, First dose on Sat | | AM PST | | | | | 10/17/17 at 0945, Until | | | | | | | Discontinued | | | | | | + +-------+ +-------+---+---+ +---+---+ | | | +---+---+ + +-------+ +------+---+---+ | midazolam (PF) (VERSED) | Given | 10/15/19 | 1 mg | | | | injection INTRAPROCEDURE PRN, | | 18 11:21 | | | | | Starting Radha 10/15/17 at 1121, | | AM PST | | | | | Until Radha 10/15/17 at 1121 | | | | | | + +-------+ +------+---+---+ +---+---+ | | | +---+---+ + +-------+ +------+---+---+ | midazolam (PF) (VERSED) | Given | 10/15/19 | 1 mg | | | | injection INTRAPROCEDURE PRN, | | 18 11:35 | | | | | Starting Radha 10/15/17 at 1135, | | AM PST | | | | | Until Radha 10/15/17 at 1135 | | | | | | + +-------+ +------+---+---+ +---+---+ | | | +---+---+ + +-------+ +------+---+---+ | midazolam (PF) (VERSED) | Given | 10/15/19 | 1 mg | | | | injection INTRAPROCEDURE PRN, | | 18 12:44 | | | | | Starting Radha 10/15/17 at 1244, | | PM PST | | | | | Until Radha 10/15/17 at 1244 | | | | | | + +-------+ +------+---+---+ +---+---+ | | | +---+---+ + +-------+ +--------+---+---+ | ofloxacin (OCUFLOX) 0.3 % | Given | 10/17/19 | 1 drop | | | | ophthalmic drops 1 drop 1 drop, | | 18 6:27 | | | | | Left Eye, FOUR TIMES DAILY, First | | PM PST | | | | | dose on Thu10/14/17 at 1915, | | | | | | | Until Discontinued | | | | | | + +-------+ +--------+---+---+ +-------+ +--------+---+---+ | Given | 10/17/19 | 1 drop | | | | | 18 1:29 | | | | | | PM PST | | | | +-------+ +--------+---+---+ | Given | 10/17/19 | 1 drop | | | | | 18 9:34 | | | | | | AM PST | | | | +-------+ +--------+---+---+ +---+---+ | | | +---+---+ + +-------+ +-------+---+---+ | oxyCODONE (immediate release) | Given | 10/16/19 | 10 mg | | | | (ROXICODONE) tablet 5-10 mg 5-10 | | 18 5:55 | | | | | mg, oral, EVERY 6 HOURS | | PM PST | | | | | NEEDED, Starting 10/10/17 at | | | | | | | 2102, Until 10/16/17 at 1959, | | | | | | | severe pain | | | | | | + +-------+ +-------+---+---+ +-------+ +-------+---+---+ | Given | 10/16/19 | 10 mg | | | | | 18 10:20 | | | | | | AM PST | | | | +-------+ +-------+---+---+ | Given | 10/16/19 | 10 mg | | | | | 18 4:16 | | | | | | AM PST | | | | +-------+ +-------+---+---+ +---+---+ | | | +---+---+ + +-------+ +-------+---+---+ | oxyCODONE (immediate release) | Given | 10/17/19 | 10 mg | | | | (ROXICODONE) tablet 5-10 mg 5-10 | | 18 6:25 | | | | | mg, oral, EVERY 4 HOURS | | PM PST | | | | | NEEDED, Starting 10/16/17 at | | | | | | | 2000, Until 10/18/17 at 0148, | | | | | | | severe pain | | | | | | + +-------+ +-------+---+---+ +-------+ +-------+---+---+ | Given | 10/17/19 | 10 mg | | | | | 18 1:27 | | | | | | PM PST | | | | +-------+ +-------+---+---+ | Given | 10/17/19 | 10 mg | | | | | 18 8:38 | | | | | | AM PST | | | | +-------+ +-------+---+---+ +---+---+ | | | +---+---+ + +-------+ +-------+---+---+ | pantoprazole (PROTONIX) tablet | Given | 10/17/19 | 40 mg | | | | 40 mg 40 mg, oral, TWICE DAILY, | | 18 8:39 | | | | | First dose on 10/10/17 at 2145, | | AM PST | | | | | Until Discontinued | | | | | | + +-------+ +-------+---+---+ +-------+ +-------+---+---+ | Given | 10/16/19 | 40 mg | | | | | 18 9:45 | | | | | | PM PST | | | | +-------+ +-------+---+---+ | Given | 10/16/19 | 40 mg | | | | | 18 8:37 | | | | | | AM PST | | | | +-------+ +-------+---+---+ +---+---+ | | | +---+---+ + +---------+ +--------+---+---+ | perflutren lipid microspheres | IV Push | 10/11/19 | 1.5 mL | | | | (DEFINITY) injection 1.5 mL 1.5 | | 18 12:14 | | | | | mL, intravenous, PROCEDURE ONCE, | | PM PST | | | | | 1 dose, 10/11/17 at 1215 | | | | | | + +---------+ +--------+---+---+ +---+---+ | | | +---+---+ + +-------+ +------+---+---+ | polyethylene glycol (MIRALAX) | Given | 10/12/19 | 17 g | | | | packet 17 g 17 g, oral, TWICE | | 18 10:06 | | | | | DAILY, First dose on 10/10/17 | | AM PST | | | | | at 2300, Until Discontinued | | | | | | + +-------+ +------+---+---+ +---+---+ | | | +---+---+ + +-------+ +--------+---+---+ | potassium chloride SR (K-DUR) | Given | 10/12/19 | 20 mEq | | | | tablet 20 mEq 20 mEq, oral, | | 18 4:35 | | | | | ONCE, 1 dose, 10/12/17 at 1700 | | PM PST | | | | + +-------+ +--------+---+---+ +---+---+ | | | +---+---+ + +-------+ +--------+---+---+ | potassium chloride SR (K-DUR) | Given | 10/11/19 | 40 mEq | | | | tablet 40 mEq 40 mEq, oral, | | 18 8:37 | | | | | ONCE, 1 dose, 10/11/17 at 0845 | | AM PST | | | | + +-------+ +--------+---+---+ +---+---+ | | | +---+---+ + +-------+ +--------+---+---+ | prednisoLONE acetate (PRED | Given | 10/17/19 | 1 drop | | | | FORTE) 1 % ophthalmic drops, | | 18 6:28 | | | | | suspension 1 drop 1 drop, Left | | PM PST | | | | | Eye, FOUR TIMES DAILY, First dose | | | | | | | on 10/14/17 at 1915, Until | | | | | | | Discontinued | | | | | | + +-------+ +--------+---+---+ +-------+ +--------+---+---+ | Given | 10/17/19 | 1 drop | | | | | 18 1:29 | | | | | | PM PST | | | | +-------+ +--------+---+---+ | Given | 10/17/19 | 1 drop | | | | | 18 9:35 | | | | | | AM PST | | | | +-------+ +--------+---+---+ +---+---+ | | | +---+---+ + +-------+ +---------+---+---+ | senna-docusate (SENOKOT S) | Given | 10/16/19 | 2 | | | | 8.6-50 mg 4 tablet 4 tablet, | | 18 9:45 | tablets | | | | oral, TWICE DAILY, First dose on | | PM PST | | | | | 10/10/17 at 2300, Until | | | | | | | Discontinued | | | | | | + +-------+ +---------+---+---+ +-------+ +---------+---+---+ | Given | 10/14/19 | 4 | | | | | 18 7:45 | tablets | | | | | PM PST | | | | +-------+ +---------+---+---+ | Given | 10/14/19 | 4 | | | | | 18 9:44 | tablets | | | | | AM PST | | | | +-------+ +---------+---+---+ +---+---+ | | | +---+---+ + +---------+ +--------+ +---+ | sodium chloride 0.9% IV | New Bag | 10/15/19 | 500 mL | 75 mL/hr | | | infusion INTRAPROCEDURE | | 18 11:21 | | | | | CONTINUOUS PRN, Starting Radha | | AM PST | | | | | 10/15/17 at 1121, Until Radha 10/15/17 | | | | | | | at 1121 | | | | | | + +---------+ +--------+ +---+ +---+---+ | | | +---+---+ + +---------+ +--------+ +---+ | sodium chloride 0.9% IV | New Bag | 10/15/19 | 500 mL | 20 mL/hr | | | infusion INTRAPROCEDURE | | 18 12:01 | | | | | CONTINUOUS PRN, Starting Radha | | PM PST | | | | | 18 at 1201, Until Radha 18 | | | | | | | at 1201 | | | | | | + +---------+ +--------+ +---+ +---+---+ | | | +---+---+ + + + + +--------+---+ | tirofiban (AGGRASTAT) 12.5 | Rate/Dos | 10/14/19 | 0.15 | 16.06 | | | mg/250 mL (0.05 mg/mL) IV | e Verify | 18 4:05 | mcg/kg/m | mL/hr | | | infusion 0.15 mcg/kg/min | | AM PST | in | | | | 89.2 kg (16.056 mL/hr, rounded | | | | | | | to 16.06 mL/hr), intravenous, | | | | | | | CONTINUOUS, Starting 10/11/17 | | | | | | | at 0900, Until Thu10/14/17 at 1600 | | | | | | + + + + +--------+---+ + + + +--------+---+ | Rate/Dose Verify | 10/13/19 | 0.15 | 16.06 | | | | 18 11:43 | mcg/kg/m | mL/hr | | | | PM PST | in | | | + + + +--------+---+ | Rate/Dose Verify | 10/13/19 | 0.15 | 16.06 | | | | 18 7:23 | mcg/kg/m | mL/hr | | | | PM PST | in | | | + + + +--------+---+ +---+---+ | | | +---+---+ + + + +--------+---+---+ | tirofiban bolus from continuous | Bolus | 10/11/19 | 2,250 | | | | infusion (AGGRASTAT) 2,250 mcg | from | 18 8:58 | mcg | | | | 2,250 mcg (rounded from 2,230 mcg | Same Bag | AM PST | | | | | = 25 mcg/kg | | | | | | | 89.2 kg), intravenous, ONCE, 1 | | | | | | | dose, Jeannette 10/11/17 at 0900 | | | | | | + + + +--------+---+---+ +---+---+ | | | +---+---+ documented in this encounter
--- OUTSIDE RECORDS SUMMARY | ~2019-01-22 | XMS | Encounter Summary ---
Demographics + + + | Address | [address] | | | [place] [address] | + + + | Home Phone [...] + + + | Author | [facility] | + + + | Organization | [facility] | + + + | Address | Unknown | + + + | Phone | Unavailable | + + + Support + + + + + | Name | Relationship | Address | Phone | + + + + + | [place] Will | ECON | [address] | | | | | [place] [address] | | + + + + + Care Team Providers + +------+ + | Care [place] Police Lieutenant Name | Role | Phone | + +------+ + | Jamal Guerrero MD | PCP | | + +------+ + Encounter Details +--------+ + + + + | Date | Type | Department | Care Team | Description | +--------+ + + + + | 01/28/ | Document-Sc | UNKNOWN DEPARTMENT | Unknown . | | | 2011 | anned | [address] | | | | | | [facility] | | | | | | [place], [place] | | | | | | [address] | | | +--------+ + + + [...] + + + | RADIOLOGY | | 01/29/2012 | | Results for this | | | | 12:00 AM | | procedure are in the | | | | PDT | | results section. | + +--------+ + + + documented in this encounter Results RADIOLOGY (01/29/2012 12:00 AM PDT) + + + | Narrative | Performed At | + + + | | | + + + + + | Transcriptions | + + | Grisel Cummings - 02/09/2012 10:52 AM PDT | + + documented in this encounter Visit Diagnoses Not on filedocumented in this encounter"
--- OUTSIDE RECORDS SUMMARY | ~2019-01-22 | XMS | Encounter Summary ---
Demographics + + + | Address | [address] [place] [address] [address] | | | [place] [address] | + + + | Home Phone | | + + + | Preferred Language | Unknown | + + + | Marital Status | | + + + | Church Affiliation | Unknown | + + + | Race | Unknown | + + + | Ethnic Group | Unknown | + + + Author + + + | Author | [facility] | + + + | Organization | [facility] | + + + | Address | Unknown | + + + | Phone | Unavailable | + + + Support + + +---------+ + | Name | Relationship | Address | Phone | + + +---------+ + | [place] Mckeon | ECON | Unknown | | + + +---------+ + Care Team Providers + +------+ + | Care Hypoid Gear Tester Name | Role | Phone | + +------+ + | Chato Matson MD | PCP | | + +------+ + Encounter Details +--------+ + + + + | Date | Type | Department | Care Team | Description | +--------+ + + + + | 11/03/ | Ancillary | [facility] | Amy Olivares MD | Congestive heart | | 2019 | Procedure | ECHO | [address] | failure, unspecified | | | | | [place], [place] | HF chronicity, | | | | | [address] | unspecified heart | | | | [...] RON MCKEON Date of : 1955 | [facility] | | Performing Physician: Rocio | RADIOLOGY | | [facility] | | | | | [...] MV A Rohan: 0.86 m/s MV Dec [place]: 3.26 m/s2 | | | MV DecT: [...] | 21.47 mmHg TR Vmax: 2.31 m/s Pasta Press Operator: ANJANA Authenticated | | | by: [facility] Report Date/Time: 11-04-2018 19:16:25 | | + + + + + | Procedure Note | + + | Sebastian, Rad Results In - 11/04/2018 7:20 PM PST Patient Name: Belkys MCKEON of | | : 5Accession: [id number] Physician: Rocio | | [facility] INDICATIONS------ | | -----CHFCONCLUSIONS 1. This [...] | 5.92 cmLVPWd: 1.01 cmLVOT Area: 3.17 [id number] Diam: 2.01 cm%FS: 15.56 %EF(Teich): | | [...] mlLAESV Index (A-L): 42.88 ml/m2LAAs A2C: 24.92 [id number] A-L | | A2C: 95.08 mlLALs A2C: 5.54 cmLAAs A4C: 19.37 lk5EQCUV A-L A4C: 70.66 mlLALs | | A4C: 4.50 cmRAAs: 18.79 hv6OURTT A-L: 67.38 mlRAESV MOD: 63.17 mlRALs: 4.44 | | cmTAPSE: 2.12 cmAV maxP.82 mmHgAV meanP.56 mmHgAV Vmax: 1.30 m/Emil | | Vmean: 0.88 m/Emil VTI: 25.33 cmAVA Vmax: 2.55 cm2AVA (VTI): 2.49 ae8HQPU (Vmax): | | 0.00 cm2/m2AVAI (VTI): 0.00 cm2/m2LVOT maxP.40 mmHgLVOT meanP.91 | | mmHgLVSI Dopp: 29.85 ml/m2LVSV Dopp: 63.29 mlLVOT Vmax: 1.04 m/sLVOT Vmean: 0.64 | | m/sLVOT VTI: 19.92 cmMV A Rohan: 0.86 m/sMV Dec [place]: 3.26 m/s2MV DecT: 218.32 | | msMV E Rohan: 0.71 m/sMV E/A Ratio: 0.82 MV PHT: 63.31 msMVA By PHT: 3.47 | | tj1Kledwe e': 0.04 m/sSeptal E/e': 15.51 Lateral e': 0.06 m/sLateral E/e': 10.91 | | RAP: 5 mmHgRVSP: 26.47 mmHgTR maxP.47 mmHgTR Vmax: 2.31 m/sSonographer: | | DBSAuthenticated by: Mershed [facility] Date/Time: 11-04-2018 19:16:25IMPRESSION:1. | | This [...] A Rohan: 0.86 m/s | |MV Dec [place]: 3.26 m/s2 | |MV DecT: 218.32 ms [...] |TR Vmax: 2.31 m/s | | | |Pasta Press Operator: DBS | |Authenticated by: Rocio Pearl | [...] | + + + + + | [facility] | [address] | [place] [address] | | + + + + + in this encounter Visit Diagnoses + + | Diagnosis | + + | Congestive heart failure, unspecified HF chronicity, unspecified heart failure type | | (HCC) | + +"
--- OUTSIDE RECORDS SUMMARY | ~2019-01-22 | XMS | Encounter Summary ---
Demographics + + + | Address | [address] | | | [place] [address] | + + + | Home Phone | | + + + | Preferred Language | Unknown | + + + | Marital Status | | + + + | Tenriism Affiliation | Unknown | + + + | Race | Unknown | + + + | Ethnic Group | Unknown | + + + Author + + + | Author | [facility] | | | and [place] | + + + | Organization | [facility] | | | and [place] | + + + | Address | Unknown | + + + | Phone | Unavailable | + + + Support + + + + + | Name | Relationship | Address | Phone | + + + + + | [place] Will | ECON | [place] | | | | | [address] | | + + + + + Care Team Providers + +------+ + | Care Pond Sawyer Name | Role | Phone | + [...] + | 10/27/ | Telephone | [facility] | Jenny, | Other (medication | | 2018 | | CARDIOLOGY [address] | [address] | issue) | | | | [place], | [place], | | | | | [place] [address] | [place] [address] | | | | | [phone] | [phone] | | | | | | | [...] W | | | | | | [place], | | | | | | [place] [address] | | | | | | [phone] | | | | | | | [...] (HCC) | | + +--------+ + + documented as of this encounter Visit Diagnoses + + | Diagnosis | + + | Congestive heart failure, unspecified HF chronicity, unspecified heart failure type | | (HCC) - Primary | + + documented in this encounter"
--- OUTSIDE RECORDS SUMMARY | ~2019-01-22 | XMS | Encounter Summary ---
Demographics + + + | Address | [address] | | | [place] [address] | + + + | Home Phone | | + + + | Preferred Language | Unknown | + + + | Marital Status | | + + + | Church Affiliation | Unknown | + + + | Race | Unknown | + + + | Ethnic Group | Unknown | + + + Author + + + | Author | [facility] | | | and [place] | + + + | Organization | [facility] | | | and [place] | + + + | Address | Unknown | + + + | Phone | Unavailable | + + + Support + + + + + | Name | Relationship | Address | Phone | + + + + + | [place] Will | ECON | [place] | | | | | [address] | | + + + + + Care Team Providers + +------+ + | Care Warper Fixer Name | Role | Phone | + [...] + | 10/27/ | Telephone | [facility] | Jenny, | Other (medication | | 2018 | | CARDIOLOGY [address] | [address] | issue) | | | | [place], | [place], | | | | | [place] [address] | [place] [address] | | | | | [phone] | [phone] | | | | | | | [...] W | | | | | | [place], | | | | | | [place] [address] | | | | | | [phone] | | | | | | | [...]
--- OUTSIDE RECORDS SUMMARY | ~2019-01-22 | XMS | Encounter Summary ---
Demographics + + + | Address | [address] | | | [place] [address] | + + + | Home Phone [...] + | [place] Will | ECON | [place] | | | | | [address] | | + + + + + Care Team Providers + +------+ + | Care Testing Engineer Name | Role | Phone | [...] + + | 11/18/ | Telephone | [facility] | Jenny, | Blood Pressure | | 2019 | | CARDIOLOGY [address] | [place], FLUE BLOWER [address] | | | | | [place], | [place], | | | | | [place] [address] | [place] [address] | | | | | [phone] | [phone] | | | | | | | [...] [place], | | | | | | [place] [address] | | | | | | [phone] | | | | | | | | +--------+ + + + + documented as of this encounter Visit Diagnoses Not on filedocumented in this encounter"
--- OUTSIDE RECORDS SUMMARY | ~2019-01-22 | XMS | Clinical Summary ---
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 | | -secretions improving, cough [...] stayExtubated 03/22, started on | | [place] I1Giqpp infusion begun 03/22 for daily goal -1 [...] during cath | | lab procedure at [facility]. Was shocked 17 times | | Targeted [...] | | | | vaccination (Season | 9 | | | | Ended) | | [...] | | 2018 | 2CM | | Michale Darby MD | | | | | [...] | | | INC | | | [id number] | | Tejal Pettit MD | | | | | | X / | | | | | | | | /[id number] | | | | | | | | [id number] | + +------+--------+ +--------+--------+--------+ + + | Description: | | Ostial circ | + + Results Not on [...] CROSS | | 16-Pre | 8 | [address] | | | | [place] | | sent | | [place], | | | | L | | | | [place] [address] | | + +--------+ +--------+ + +--------+ | [place]ICAID [place] | OHP | [id number] | 03/07/20 | [phone] | [address] | Medica | | | PLUS | | 17-Pre | 6 | [address] | id | | | OPEN | | sent | | [place], [place] | | | | CARD | | | | [phone] | | + +--------+ +--------+ + +--------+ + +--------+ +--------+ + + | Guarantor Name | Accoun | Relation to | Date | Phone | Billing Address | | | t Type | Patient | of | | | | | | | | | | + +--------+ +--------+ + + | Bob Will | Person | Self [birth year] | [address] | | | al/Negro | | 1956 | [phone] | [address] [place] | | | [place] | | | [address] (Home) | [address] | + +--------+ +--------+ + + Advance [...]
--- OUTSIDE RECORDS SUMMARY | ~2019-01-22 | XMS | Encounter Summary ---
Demographics + + + | Address | [address] | | | [place] [address] | + + + | Home Phone [...] [place] | | | | | [address] | | + + + + + Care Team Providers + +------+ + | Care Clinical Project Manager Name | Role | Phone | + +------+ + | Young Haque DO | PCP | | + +------+ + Encounter Details +--------+ + + + + | Date | Type | Department | Care Team | Description | +--------+ + + + + | 03/28/ | Abstract | [facility] [place] | Jenny, | | | 2019 | | CARDIOLOGY [address] | [place] BUSINESS ANALYST [employer] [address] | | | | | [place], | [place], | | | | | [place] [address] | [place] [address] | | | | | [phone] | [phone] | | | | | | | [...] [place], | | | | | | [place] [address] | | | | | | [phone] | | | | | | | [...]
--- OUTSIDE RECORDS SUMMARY | ~2019-01-22 | XMS | Encounter Summary ---
Demographics + + + | Address | [address] | | | [place] [address] | + + + | Home Phone | | + + + | Preferred Language | Unknown | + + + | Marital Status | | + + + | [employer] Affiliation | NRP | + + + | Race | White | + + + | Ethnic Group | Not or | + + + Author + + + | Author | [facility] | + + + | Organization | [facility] | + + + | Address | Unknown | + + + | Phone | Unavailable | + + + Support + + + + + | Name | Relationship | Address | Phone | + + + + + | Venice Mckeon | ECON | [address] | | | | | [place] [address] | | + + + + + Care Team Providers + +------+ + | Care Claims Account Manager Name | Role | Phone | [...] | | | | | involving | [place], [place] | | | | | | left main | [address] | | | | | | coronary | Phone: | | | | | | artery (HCC) | [phone] | | | | | | Procedures | Fax: | | | | | | | [phone] | | | | | | OCCUPATIONAL [...] | | | | elevation | [address] | | | | | | myocardial | [address] | | | | | | infarction | Rd | | | | | | involving | [place], [place] | | | | | | left main | [address] | | | | | | coronary | Phone: | | | | | | artery (HCC) | [phone] | | | | | | Procedures | Fax: | | | | | | PHYSICAL | [phone] | | | | | | THERAPY [...] REHAB - [facility] | [address] | [address] | | | | | | [address] | [place], | | | | | | [place], [place] | [place] [address] | | | | | | [address] | Phone: | | | | | | Phone: | [phone] | | | | | | [phone] | Fax: | | | | | | Fax: | [phone] | | | | | | [phone] | | +--------+--------+ + + + + [...] | | | | | Ave | [place], | | | | | | [place], [place] | [place] [address] | | | | | | [address] | Phone: | | | | | | Phone: | [phone] | | | | | | [phone] | Fax: | | | | | | Fax: | [phone] | | | | | | [phone] | | +--------+--------+ + + + + [...] | | | 04/02/ | | HOSPITAL [place], | [place], [place] | | | 2016 | | [place] [address] | [address] | | | | | [phone] | [phone] | | | | | | | | | | | | Rolly Reeves, | | | | | | [address] | | | | | | [address] [place], [place] | | | | | | [address] | | | | | | [phone] | | | | | | | | | | | | Terry Ochoa MD | | | | | | [address] | | | | | | [place], [place] | | | | | | [address] | | | | | | [phone] | | | | | | | | | | | | Monika Cooper, | | | | | | Rehana Downey MD,MPH [address] | | | | [address] | | | | | | Rd [place], [place] | | | | | | [address] | | | | | | [phone] | | | | | | | | | | | | Ariana Bose, | | | | | | DO [address] | | | | | | [address] | | | | | | [place], [place] | | | | | | [address] | | | | | | [phone] | | | | | | | | | | | | Aria Rojas MD | | | | | | [address] | | | | | | [place]a [place], | | | | | | [place] [address] | | | | | | [phone] | | | | | | | [...] 2:26 PM PDT CLINICAL HOSPITALIST DISCHARGE SUMMARY [facility] Discharging Provider: Aria Rojas MD Discharging [...] follow up ludmila miller with a local skimmer scoop operator in [place]. #Acute cardiogenic shock in the setting ofSTEMI [...] 44 to 32 during first day at [facility] , with addition decline to [...] (noted on o utside records). Patient on Morganza 10/325 q8 as outpatient. Was receiving scheduled [...] then take 7.5 mg (one and one-h residential tablets) daily starting 04/03/2017 Indications: JAVON thrombus, [...] Fax Number [facility] Yes [address] [place] [address] [phone] Medina Roger RN 04/02/2017 11:31 Medina Roger RN, 04/02/2017 11:28 AM: Spoke with Latricia, 7 day auth # [id number] has been provided. Contacted Tanisha at facility [phone], arranging anticipated medicaid transport by stretcher at 2 pm today. Spoke with patient and souse concerning dc; they are both in agreement. Medina Roger, RN, 04/02/2017 9:20 AM: Contacted Latriciabettina Landry [phone] referencing auth# for SNF placement. Medina Roger RN, 04/01/2017 11:42 AM: Spoke with Malathi [phone], at facility admissions. Patient is accepted to facility. 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 F&MS working with patient and family to add Medicaid ser vices to benefits. When added patient will have travel benefit. CM contacted Shahab Holman re [employer] training. Tamia Van, RN, 03/30/2017 1:21 PM: Received VM from Emily Terrell CM with [facility] to send referral to this location . Referral made, awaiting response. Follow Up: Schedule the following appointment(s) when you get home Follow up with [facility] . Specialties: [facility] Facility, Intermediate Care Facility Contact information [address] [place] [address] Follow up with LAUREN CHESTER MD. Go on 04/07/2017. Specialty: Cardiology Why: at 8:30 AM to establish Cardiology follow up Contact information [facility] [address] [address] Aria Rojas MD Division of Hospital Medicine [facility] I spent 60 minutes on discharge activities on the day of discharge, including counseling of the patient and his regarding his discharge plan and in coordination of care on the al rd with nursing, pharmacy, and Heart Failure.Electronically [...] and chronic pain who was transferred to [facility] on 03/15 s/p STEMI with [...] will need Life Vest follow up with skimmer scoop operator in [place] on discharge - appr eciate cardiology assistance [...] hematoma, but possibly some candidal infection/intertrigo. On Morganza 10/325 Q8H as an outp atient. -Continue [...] 44 to 32 during first day at [facility], with addition decline to 24 [...] Aria Rojas MD Division of Hospital Medicine [facility] Pager [phone] I spent 36 minutes on the patient [...] and chronic pain who was transferred to [facility] on 03/15 s/p STEMI with [...] will need Life Vest follow up with skimmer scoop operator in [place] on discharge - appr iate cardiology assistance [...] hematoma, but possibly some candidal infection/interrigo. On Morganza 10/ Q8H as an outpa tient. -Continue [...] discharge. -CM looking for skilled placement in [place] near patient's home; appreciate assistance At risk for malnutrition Very little PO intake but reportedly improving. Previously had dobhoff feeding tube in the CVICU.Nutrition assistance appreciated. -Calorie count ongoing -Encouraging PO intake Normocytic anemia Hct dropped abruptly from 44 to 32 during first day at [facility], with addition decline to 24 [...] Aria Rojas MD Division of Hospital Medicine [facility] Pager [phone] I spent 36 minutes on the patient encounter today, >50% in counseling of the patient's on the above plan of care and in coordination of care on the arizmendi with nursing and Heart Fa ilure. Ariana Ivy DO - 03/30/2017 5:49 PM PDT CLINICAL HOSPITALIST SERVICE PROGRESS NOTE PATIENT'S NAME/MRN: Ron Mckeon/[id number] HOSPITAL DAY: #15 24-HOUR EVENTS & SUBJECTIVE: -patient complained of typical anginal chest pain and had STEMI code last night, anterior S T elevation on serial EKGs, given 325mg ASA, started on heparin drip (had been turned off fo r JAVON thrombus yesterday afternoon with warfarin therapeutic), patient went to the mineral ore processing labourer -on angiography, interventionalists noted "patent stent traversing [...] 7.5 mg, 7.5 mg, oral, QPM, Ariana [place], OBJECTIVE: Last Vitals: BP 101/56 | Pulse [...] daily - Patient will follow up with skimmer scoop operator in [place] on discharge; appreciate cardiolo adriana assistance with [...] stenosis (noted on o utside records, on Morganza q8 as outpatient) Improved today -continue oxycodone [...] 44 to 32 during first day at [facility] , with addition decline to [...] assistance Barriers for DC: delivery/approval of lifevest, [facility] bed Ariana Bose DO Parking Control Officerduco polisher Clinical Hospitalist and Medicine Teaching Service Division of Hospital Medicine [facility] Pager [phone] [facility] DEPARTMENT: Hosp- [id number] Place of Service: Date of Service: 03/26/2017 CSN: [id number] Modifiers:GC Resident Involved: Yes Suggested CPT: 40574 Subsequent Visit Detailed/High complexity 35 min Cristi [...] given continued elevated Tn, patient's significant recent [place], we activated the mineral ore processing labourer. Patient received 325 mg ASA at bedside and was briefly on heparin which has since been disc ontinued. Per cardiology will continue daily 81 mg ASA, plavix and warfarin. Continue to t rend troponins as well. I spent 30 minutes with this patient with >50% of the time evaluating patient at the [facility] on numerous occasions, evaluating studies and coordinating care w/ cardiology.Electronical ly signed by Ivette Chaudhry MD at 03/30/2017 6:24 AM Gerson Oseguera MD - 03/30/2017 4:31 AM PDTCardiology Preliminary Procedure Note (Full report to follow) Primary Care Provider: Jamal Guerrero MD Referring Provider: No Referring Provider Per Patient Supportability Engineer Staff: Katarina Ngo M.D. Procedure(s): Coronary Angiography [...] None Complications: None Hemostasis: Manual compression in mineral ore processing labourer. Site: [facility] Recommendations: Patient Status: Inpatient Usual post cath care. Ariana Ivy D O - 03/29/2017 9:30 AM PDT CLINICAL HOSPITALIST SERVICE PROGRESS NOTE PATIENT'S NAME/MRN: Ron Mckeon/[id number] HOSPITAL DAY: #14 24-HOUR EVENTS & SUBJECTIVE: [...] stenosis (noted on o utside records, on Morganza 10 q8 as outpatient) -continue oxycodone 10mg [...] 44 to 32 during first day at [facility] , with addition decline to [...] arm, midline left arm Ariana Bose DO Parking Control Officerduco polisher Clinical Hospitalist and Medicine Teaching Service Division of Hospital Medicine [facility] Pager [phone] [facility] DEPARTMENT: Hosp- [id number] Place of Service: - Date of Service: 03/26/2017 CSN: [id number] Modifiers:GC Resident Involved: Yes Suggested CPT: 18064 Subsequent Visit Detailed/High complexity 35 min Ariana Ivy DO - 03/28/2017 8: 06 AM PDT CLINICAL HOSPITALIST SERVICE PROGRESS NOTE PATIENT'S NAME/MRN: Ron Mckeon/[id number] HOSPITAL DAY: #13 24-HOUR EVENTS & SUBJECTIVE: [...] mg 2 tablet, 2 tablet, oral, BID, eJet Ramírez MD, 2 tablet at 03/27/17 2208 [...] stenosis (noted on o utside records, on Morganza q8 as outpatient) Improving L groin pain [...] 44 to 32 during first day at [facility] , with addition decline to [...] arm, midline left arm Ariana Bose DO Parking Control Officerduco polisher Clinical Hospitalist and Medicine Teaching Service Division of Hospital Medicine [facility] Pager [phone] [facility] DEPARTMENT: Hosp- [id number] Place of Service: - Date of Service: 03/26/2017 CSN: [id number] Modifiers:GC Resident Involved: Yes Suggested CPT: 53870 Subsequent Visit Detailed/High complexity 35 min Ariana [...] 44 to 32 during first day at [facility] , with addition decline to [...] arm, midline left arm Ariana Bose DO Parking Control Officerduco polisher Clinical Hospitalist and Medicine Teaching Service Division of Hospital Medicine [facility] Pager [phone] [facility] DEPARTMENT: Hosp- [id number] Place of Service: - Date of Service: 03/26/2017 CSN: [id number] Modifiers:GC Resident Involved: Yes Suggested CPT: 91982 Subsequent Visit Detailed/High complexity 35 min Chapis [...] 44 to 32 during first day at [facility] , with addition decline to [...] arm, midline left arm Ariana Bose DO Parking Control Officerduco polisher Clinical Hospitalist and Medicine Teaching Service Division of [facility] Medicine [facility] Pager [phone] [facility] DEPARTMENT: Hosp- [id number] Place of Service: - Date of Service: 03/26/2017 CSN: [id number] Modifiers:GC Resident Involved: Yes Suggested CPT: 00551 Subsequent Visit Detailed/High complexity 35 min Wan Cano MD - 03/25/2017 3:07 PM PDT . Cardiovascular Intensive Care Unit Attending Progress Note CVICU D2 Assigned #[id number] ICU Admission Reason Most Recent Value ICU [...] artery. ANY X2 placed in outs surinder mineral ore processing labourer along with IABP. Arrived in cardiogenic shock, [...] Pager Mellisa Haji MD Admitting Provider Cardiology 00209 Zelalem Del Toro MD ICU PM Attending Anesthesiology 99359 Code Status Code Status Full Code The Advanced Care Note for this patient can be found under the notes tab in chart review. Quality section Reardon necessity reviewed: Hourly/Accurate measurement of urinary output for clinical manage ment of critically ill patients Wan Deleon MD, JOHN, ERVIN Cardiovascular Intensive Care Unit [address] [place], [place] [address] I have spent a total of 38 [...] xceptions/additions as noted. Date of Service: 03/25/2017 [facility] DEPARTMENT: ANE ICU CARDIAC Place of Service:- Inpatient CSN: [id number] Suggested Modifier: GC - Resident Involved Suggested CPT: TO PANTOGRAPH SETTER Jose Ramon Khan MD - 03/24/2017 10:54 AM PDT . Cardiovascular Intensive Care Unit Team Progress Note CVICU D2 Assigned #[id number] ICU Admission Reason Most Recent Value ICU [...] artery. ANY X2 placed in outs surinder mineral ore processing labourer along with IABP. Arrived in cardiogenic shock, [...] & Plan 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 Was shocked 17 times Targeted temperature [...] edema. 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 -secretions improving, cough strong -s/p 7 days [...] Pager Mellisa Haji MD Admitting Provider Cardiology 02539 Zelalem Del Toro MD ICU PM Attending Anesthesiology 99454 The Advanced Care Note for this patient [...] by Jose Ramon Alvarado MD Author:Jose Ramon Alavrado MD [address] [address] [place] [address]Ceujdgqfusoemn signed by Jose Ramon Alvarado MD at 03/24/2017 11:00 AM Wan Cano MD - 03/24/2017 9:47 AM PDTFormatting of this note might be diff erent from the original. Cardiovascular Intensive Care Unit Attending Progress Note CVICU D2 Assigned #[id number] ICU Admission Reason Most Recent Value ICU [...] artery. ANY X2 placed in outs surinder mineral ore processing labourer along with IABP. Arrived in cardiogenic shock, [...] Pager Mellisa Haji MD Admitting Provider Cardiology 80272 Zelalem Del Toro MD ICU PM Attending Anesthesiology 57294 Code Status Code Status Full Code The Advanced Care Note for this patient can be found under the notes tab in chart review. Quality section Reardon necessity reviewed: Hourly/Accurate measurement of urinary output for clinical manage ment of critically ill patients Wan Deleon MD, JOHN, ERVIN Cardiovascular Intensive Care Unit [address] [place] [address] I have spent a total of 42 [...] xceptions/additions as noted. Date of Service: 03/24/2017 [facility] DE[facility]MENT: [facility] ICU CARDIAC Place of Service:- Inpatient CSN: [id number] Suggested Modifier: GC - Resident Involved Suggested CPT: TO PANTOGRAPH SETTER Author:Wan Deleon Md, [address] [id number] signed by Wan Deleon MD at 03/24/2017 9:49 AM Tamia De La Paz PA-C - 03/23/2017 11:54 PM PDTFormatting of this note might be diff erent from the original. Cardiovascular Intensive Care Unit Clinical Update Note Team: D2 Team Pager: [phone] Attending: Katey Pt Name: Ron Mckeon ID: Abbreviated HPI Abbreviated HPI / Daily Assessment Ron Mckeon is a 61 year old man with acute cardiogenic shock in the setting of acu te STEMI from thrombosed left main coronary artery. Initially had lesion in proximal LAD and distal LM, but then acutely thrombosed his left main coronary artery. ANY X2 placed in outs surinder mineral ore processing labourer along with IABP. Arrived in cardiogenic shock, [...] Unit Team Progress Note CVICU D2 Assigned #[id number] ICU Admission Reason Most Recent Value ICU [...] artery. ANY X2 placed in outs surinder mineral ore processing labourer along with IABP. Arrived in cardiogenic shock, [...] STEMI (ST elevation myocardial infarction) ([facility]) Yes Overview Xience Alpine 3.0 mm X [...] & Plan 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 Was shocked 17 times Targeted temperature [...] edema. 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 -fevering nightly, cultures negative, WBC stable -secretions [...] Pager Mellisa Haji MD Admitting Provider Cardiology 96378 The Advanced Care Note for this patient [...] Alvarado MD Author:Jose Ramon Alvarado MD [address] [id number] signed by Jose Ramon Alvarado MD at 03/23/2017 11:41 AM PDTWan Deleon MD - 03/23/2017 9:51 AM PDTFormatting of this note might be diff erent from the original. Cardiovascular Intensive Care Unit Attending Progress Note CVICU D2 Assigned #[id number] ICU Admission Reason Most Recent Value ICU [...] artery. ANY X2 placed in outs surinder mineral ore processing labourer along with IABP. Arrived in cardiogenic shock, [...] Pager Mellisa Haji MD Admitting Provider Cardiology 77515 Code Status Code Status Full Code The Advanced Care Note for this patient can be found under the notes tab in chart review. Quality section A-Line necessity reviewed: Plan to DC today Reardon necessity reviewed: Hourly/Accurate measurement of urinary output for clinical manage ment of critically ill patients Currently at risk for: delirium, stroke, [place], arrythmia, tamponade, PE, respiratory failure, ARDS, aspiration, AYLIN / ARF, coagulopathy, DVT, stress ulcers, sepsis, BONIFACIO, electrolyte per turbations, malnutrition, deconditioning and decubiti. Wan Deleon MD, JOHN, ERVIN Cardiovascular Intensive Care Unit [facility] [place] [address] I have spent a total of 44 [...] xceptions/additions as noted. Date of Service: 03/23/2017 [facility] DE[facility]MENT: [facility] ICU CARDIAC Place of Service:- Inpatient CSN: [id number] Suggested Modifier: GC - Resident Involved Suggested CPT: TO PANTOGRAPH SETTER Tamia De La Paz PA-C - 03/22/2017 7:58 PM PDT . Cardiovascular Intensive Care Unit Clinical Update Note Team: D2 Team Pager: [phone] Attending: Abdulaziz Merrill Name: Ron Mckeon ID: [...] Unit Attending Progress Note CVICU D2 Assigned #[id number] ICU Admission Reason Most Recent Value ICU [...] long tobacco abuse history, presenting with acute [place] and STEMI, resu ltant cardiogenic shock refractory [...] Pager Mellisa Haji MD Admitting Provider Cardiology 29991 Code Status Code Status Full Code Quality section A-Line necessity reviewed: Azsg-cn-dixp blood pressure monitoring Reardon necessity reviewed: Hourly/Accurate [...] of Service: 03/22/2017 Author:Anurag Ashby MD [address] [address]Xuyuknkozclmgm signed by Anurag Ashby MD at 03/22/2017 11:07 AM P Macho Sellers MD - 03/22/2017 11:00 AM PDT Cardiovascular Intensive Care Unit Team Progress Note CVICU D2 Assigned #[id number] ICU Admission Reason Most Recent Value ICU [...] & Plan 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 Was shocked 17 times Targeted temperature [...] edema. 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 -vanc zosyn stopped 03/17 -fever 38.3 last [...] Pager Mellisa Haji MD Admitting Provider Cardiology 97252 This patient does not have an Advanced Care Note for this Admission. Please use the Goal of care section of your ICU navigator to document the advanced care discussion. Quality section A-Line necessity reviewed: Figa-ku-zojk blood pressure monitoring Reardon necessity reviewed: Hourly/Accurate measurement of urinary output for clinical manage ment of critically ill patients FAST HUG Feeding: Tube Feeds: Replete @ 55 mL/hr Analgesia: APAP, hydromorphone PRN Sedation: N/A Thromboprophylaxis: Heparin infusion Head of Bed: Head of Bed >30 degrees Ulcer Prophylaxis: Famotidine Glycemic Control: insulin infusion Created by Macho Gaytan MD Author:Macho Gaytan MD [address] [address]Bgbkwhaokouyfa signed by Macho Gaytan MD at 03/23/2017 12:35 PM PDTT Tamia leon PA-C - 03/21/2017 7:02 PM PDTFormatting of this note might be different f rom the original. Cardiovascular Intensive Care Unit Clinical Update Note Team: D2 Team Pager: [phone] Attending: Abdulaziz Merrill Name: Ron Mckeon ID: [...] Opens eyes, nods head. Follows commands for document control associate and Plan: Hospital Problems Priority POA Head/Neck [...] Unit Team Progress Note CVICU D2 Assigned #[id number] ICU Admission Reason Most Recent Value ICU [...] & Plan 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 Was shocked 17 times Targeted temperature [...] edema. 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 -vanc zosyn stopped 03/17 -fever 38.3 last [...] Pager Mellisa Haji MD Admitting Provider Cardiology 34253 This patient does not have an Advanced Care Note for this Admission. Please use the Goal of care section of your ICU navigator to document the advanced care discussion. Quality section A-Line necessity reviewed: Srmn-ip-rlse blood pressure monitoring CVC necessity reviewed: Hemodynamic [...] Macho Gaytan MD Author:Macho Gaytan MD [address] [id number] signed by Macho Gaytan MD at 03/21/2017 1:43 PM Anurag Paredes MD - 03/21/2017 12:22 PM PDT Cardiovascular Intensive Care Unit Attending Progress Note CVICU D2 Assigned #[id number] ICU Admission Reason Most Recent Value ICU [...] long tobacco abuse history, presenting with acute [place] and STEMI, resu ltant cardiogenic shock refractory [...] Pager Mellisa Haji MD Admitting Provider Cardiology 14271 Code Status Code Status Full Code Quality section A-Line necessity reviewed: Mrhy-ej-sfkc blood pressure monitoring CVC necessity reviewed: Plan [...] Date of Service: 03/21/2017 Author:Anurag Ashby MD [address] [address] [place] [address]Hcveevlhhtnrqj signed by Anurag Ashby MD at 03/21/2017 12:22 PM P Jose Ramon Coburn MD - 03/20/2017 12:36 PM PDTFormatting of this note might be differen t from the original. Cardiovascular Intensive Care Unit Team Progress Note CVICU D2 Assigned #[id number] ICU Admission Reason Most Recent Value ICU [...] & Plan 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 Was shocked 17 times Targeted temperature [...] edema. 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 -vanc zosyn stopped 03/17 -fever 38.3 last [...] Pager Mellisa Haji MD Admitting Provider Cardiology 20451 Quality section A-Line necessity reviewed: Aeuk-lv-wadk blood pressure monitoring CVC necessity reviewed: Hemodynamic [...] Alvarado MD Author:Jose Ramon Alvarado MD [address] [address]Dmwneeawfmiewv signed by Jose Ramon Alvarado MD at 03/20/2017 12:49 PM PDTMoulton, Anurag Soni MD - 03/20/2017 12:18 PM PDTFormatting of this note might be differen t from the original. Cardiovascular Intensive Care Unit Attending Progress Note CVICU D2 Assigned #[id number] ICU Admission Reason Most Recent Value ICU [...] long tobacco abuse history, presenting with acute [place] and STEMI, resu ltant cardiogenic shock refractory [...] Pager Mellisa Haji MD Admitting Provider Cardiology 77021 Code Status Code Status Full Code Quality section A-Line necessity reviewed: Czxz-gq-rlme blood pressure monitoring CVC necessity reviewed: Medication [...] Date of Service: 03/20/2017 Author:Anurag Ashby MD [address] [address] [place] [address]Akkcwfhhbjcjdx signed by Anurag Ashby MD at 03/20/2017 12:18 PM P Raul Conte MD - 03/19/2017 11:01 PM PDTFormatting of this note might be different fro m the original. Cardiovascular Intensive Care Unit Attending Progress Note CVICU D2 Assigned #[id number] ICU Admission Reason Most Recent Value ICU [...] long tobacco abuse history, presenting with acute [place] and STEMI, resu ltant cardiogenic shock refractory [...] Pager Mellisa Haji MD Admitting Provider Cardiology 99268 Code Status Code Status Full Code Quality section A-Line necessity reviewed: Mswl-fj-rats blood pressure monitoring CVC necessity reviewed: Hemodynamic [...] Date of Service: 03/19/2017 Author:Raul Wei MD [place] [id number] Jose Ramon Rodriguez MD - 03/19/2017 4:49 PM PDT Cardiovascular Intensive Care Unit Team Progress Note CVICU D2 Assigned #[id number] ICU Admission Reason Most Recent Value ICU [...] & Plan 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 Was shocked 17 times Targeted temperature [...] edema. 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 -vanc zosyn stopped 03/17 -fever 38.3 03/17 [...] Pager Mellisa Haji MD Admitting Provider Cardiology 82012 Quality section A-Line necessity reviewed: Aaoq-vt-lpgv blood pressure monitoring CVC necessity reviewed: Hemodynamic monitoring Reardon necessity reviewed: Hourly/Accurate measurement of urinary output for clinical manage ment of critically ill patients FAST HUG Feeding: TFs Analgesia: multimodal Sedation: propofol Thromboprophylaxis: Heparin infusion Head of Bed: Head of Bed >30 degrees Ulcer Prophylaxis: protonix Glycemic Control: insulin infusion Created by Jose Ramon Alvarado MD Author:Jose Ramon Alvarado MD [address] [id number] signed by Jose aRmon Alvarado MD at 03/19/2017 4:54 PM Lee Fernandez MD - 03/19/2017 2:22 PM PDTFormatting of this note might be different fr om the original. . Extracorporeal Life Support Service Daily Progress Note Pager #[phone] Type: Veno-Arterial (CPT 55623 or [address]) Date of insertion: 03/15/2017 Diagnosis:Cardiogenic shock Dressing [...] stent a/w cardiogenic shock, prolonged CPR carmelita ojse on [place] ECMO same day and supported [...] Unit Attending Progress Note CVICU D2 Assigned #[id number] ICU Admission Reason Most Recent Value ICU [...] long tobacco abuse history, presenting with acute [place] and STEMI, resu ltant cardiogenic shock refractory [...] Pager Mellisa Haji MD Admitting Provider Cardiology 06982 Code Status Code Status Full Code Quality section A-Line necessity reviewed: Amgz-kg-vvlj blood pressure monitoring CVC necessity reviewed: Medication [...] Date of Service: 03/19/2017 Author:Anurag Ashby MD [address] [phone] signed by Anurag Ashby MD at 03/19/2017 2:17 PM P Jose Ramon Coburn MD - 03/18/2017 12:56 PM PDTFormatting of this note might be differen t from the original. 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 Was shocked 17 times Targeted temperature [...] edema. 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 -vanc zosyn stopped today Abnormal CK Unknown [...] Pager Mellisa Haji MD Admitting Provider Cardiology 40449 Quality section A-Line necessity reviewed: Ctmh-pb-unuy blood pressure monitoring CVC necessity reviewed: Hemodynamic monitoring Reardon necessity reviewed: Hourly/Accurate measurement of urinary output for clinical manage ment of critically ill patients FAST HUG Feeding: trickle feeds Analgesia: multimodal Sedation: propofol Thromboprophylaxis: Heparin infusion Head of Bed: Head of Bed >30 degrees Ulcer Prophylaxis: nexium Glycemic Control: insulin infusion Created by Jose Ramon Alvarado MD Author:Jose Ramon Alvarado MD [address] [address]Imyjxakotplvkw signed by Jose Ramon Alvarado MD at 03/18/2017 1:27 PM PDTMoulton, Anurag Soni MD - 03/18/2017 11:56 AM PDTFormatting of this note might be differen t from the original. Cardiovascular Intensive Care Unit Attending Progress Note CVICU D2 Assigned #[id number] ICU Admission Reason Most Recent Value ICU [...] long tobacco abuse history, presenting with acute [place]Y and STEMI, resu ltant cardiogenic shock refractory [...] Pager Mellisa Haji MD Admitting Provider Cardiology 99495 Code Status Code Status Full Code Quality section A-Line necessity reviewed: Yamq-rm-xjdd blood pressure monitoring CVC necessity reviewed: Medication [...] of Service: 03/18/2017 Author:Anurag Ashby MD [address] [address]Jxrjwmfwlmkiqk signed by Anurag Ashby MD at 03/18/2017 11:59 AM Lee Prince MD - 03/18/2017 11:37 AM PDTFormatting of this note might be different from nissa suh original. . Extracorporeal Life Support Service Daily Progress Note Pager #[phone] Type: Veno-Arterial (CPT 88428 or 83952) Diagnosis:Cardiogenic shock Dressing changed: no Dressing Changed [...] Life Support Service Daily Progress Note Pager #[phone] Type: Veno-Arterial (CPT 25946 [place] 470[address]) Date of insertion: 03/15/2017 Diagnosis:Cardiogenic shock Dressing [...] Unit Attending Progress Note CVICU D2 Assigned #[id number] ICU Admission Reason Most Recent Value ICU [...] long tobacco abuse history, presenting with acute [place] and STEMI, resu ltant cardiogenic shock refractory [...] Pager Mellisa Haji MD Admitting Provider Cardiology 07190 Quality section A-Line necessity reviewed: Ifos-fz-smwz blood pressure monitoring CVC necessity reviewed: Rapid [...] Date of Service: 03/17/2017 Author:Raul Wei MD [place] [address] [place] [address]Dwdcvzpbrafihy signed by Raul Wei MD at 03/17/2017 9:20 PM PD Anurag Kaba MD - 03/17/2017 1:58 PM PDTFormatting of this note might be different fro m the original. Cardiovascular Intensive Care Unit Attending Progress Note CVICU D2 Assigned #[id number] ICU Admission Reason Most Recent Value ICU [...] long tobacco abuse history, presenting with acute [place] and STEMI, resu ltant cardiogenic shock refractory [...] Pager Mellisa Haji MD Admitting Provider Cardiology 81859 Quality section A-Line necessity reviewed: Aawn-ri-yrsn blood pressure monitoring CVC necessity reviewed: Medication [...] of Service: 03/17/2017 Author:Anurag Ashby MD [address] [phone] signed by Anurag Ashby MD at 03/17/2017 2:00 PM P Mauri Calderon - 03/17/2017 1:01 PM PDTTransthoracic echocardiogram completed. Final r eport to follow. 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 Was shocked 17 times Targeted temperature [...] edema. 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 -vanc zosyn stopped today Abnormal CK Unknown [...] Pager Mellisa Haji MD Admitting Provider Cardiology 44943 This patient does not have an Advanced Care Note for this Admission. Please use the Goal of care section of your ICU navigator to document the advanced care discussion. Quality section A-Line necessity reviewed: Khxd-xi-qegp blood pressure monitoring CVC necessity reviewed: Hemodynamic monitoring Reardon necessity reviewed: Hourly/Accurate measurement of urinary output for clinical manage ment of critically ill patients FAST HUG Feeding: Tube Feeds Analgesia: apap, oxy, hm Sedation: propofol Thromboprophylaxis: Heparin infusion Head of Bed: Head of Bed Flat Ulcer Prophylaxis: Pantoprazole Glycemic Control: insulin infusion Created by Teddy Kee Do, MS [facility]: [facility] ICU CARDIAC Place of Service:- Inpatient CSN: [id number] Suggested Modifier: GC - Resident Involved Suggested CPT: TO PANTOGRAPH SETTER Author:Teddy Kee Do, MS [address] [address]Ouarxwxclwhpgr signed by Teddy Kee DO, MS at 03/17/2017 6:35 PM Raul Hanson MD - 03/16/2017 7:38 PM PDT Cardiovascular Intensive Care Unit Attending Progress Note CVICU D2 Assigned #[id number] ICU Admission Reason Most Recent Value ICU [...] long tobacco abuse history, presenting with acute [place] and STEMI, resu ltant cardiogenic shock refractory [...] Pager Mellisa Haji MD Admitting Provider Cardiology 17453 Quality section A-Line necessity reviewed: Ovub-iz-paqq blood pressure monitoring CVC necessity reviewed: Rapid [...] Date of Service: 03/16/2017 Author:Raul Wei MD [address] [address]Vwpzzsoddkvujl signed by Raul Wei MD at 03/17/2017 11:03 AM PD Jose Ramon Rodriguez MD - 03/16/2017 5:15 PM PDT Cardiovascular Intensive Care Unit Team Progress Note CVICU D2 Assigned #[id number] ICU Admission Reason Most Recent Value ICU [...] & Plan 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 Was shocked 17 times Now on [...] edema. 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 -bridget retana for now Physical Exam vitals [...] Pager Mellisa Haji MD Admitting Provider Cardiology 67380 Quality section A-Line necessity reviewed: Tfcp-gi-wckf blood pressure monitoring CVC necessity reviewed: Hemodynamic [...] Ramon Alvarado MD Author:Jose Ramon Alvarado MD [place] [address] [place] [address]Kytuhslfdfhrbu signed by Jose Ramon Alvarado MD at [...] Unit Attending Progress Note CVICU D2 Assigned #[id number] ICU Admission Reason Most Recent Value ICU [...] ICU Day #2 after being transferred from [place] in [place] in acute cardiogenic archie ck following an anterior STEMI. Upon arrival to [facility], decision was made to go [...] Pager Mellisa Haji MD Admitting Provider Cardiology 22728 Quality section A-Line necessity reviewed: Ifes-mt-yjhb blood pressure monitoring CVC necessity reviewed: Hemodynamic [...] of Service: 03/16/2017 Author:Anurag Ashby MD [address] [address]Ukkxwuxunksxjf signed by Anurag Ashby MD at 03/16/2017 1:23 PM Lee Prince MD - 03/16/2017 9:41 AM PDTFormatting of this note might be different from t vikash original. . Extracorporeal Life Support Service Daily Progress Note Pager #[phone] Type: Veno-Arterial (CPT [address]3975 [place] [address]) Diagnosis:Cardiogenic shock Dressing changed: no Dressing Changed [...] Clinical Update Note Team: D2 Team Pager: [phone] Attending: Abdulaziz Merrill Name: Ron Mckeon ID: [...] Date of Service: 03/16/2017 Mirna Berumen PA-C [facility] DE[facility]: [facility] ICU CARDIAC Place of Service:- Inpatient CSN: [id number] Suggested Modifier: None Suggested CPT: TO PANTOGRAPH SETTER Mirna Berumen PA-C Everardo Valladares MD - 03/15/2017 9:04 PM PDT Cardiovascular Intensive Care Unit Attending Progress Note CVICU D2 Assigned #[id number] ICU Admission Reason Most Recent Value ICU Admission reason Cardiogenic Shock filed at 03/15/2017 1531 Hospital admission dx: left anterior descending artery occlusion, needs cabg Days in ICU Days in Hospital Medical Decision Making ICU Day #1 after being transferred from [place] in [place] in acute cardiogenic archie ck following an anterior STEMI. Upon arrival to [facility], decision was made to go [...] Pager Mellisa Haji MD Admitting Provider Cardiology 06282 Quality section A-Line necessity reviewed: Fvpz-gv-oerv blood pressure monitoring CVC necessity reviewed: Hemodynamic [...] and the recent imaging available. Seen with PA/[facility] Winston Cole. Please see their note for details. I reviewed the documented findings, all data and the recent imaging available. Date of Service: 03/15/2017 Author:Everardo Cintron MD [address] [address]Dbahrxrbeyqthk signed by Everardo Cintron MD at 03/15/2017 9:[address] - 03/15/2017 2:11 PM PDTTransthoracic echocardiogram completed. Final r eport to follow. oniPatrick genao MD,MPH - 03/15/2017 2:00 PM PDT . Extracorporeal Life Support Service Consult Service Note Pager #[phone] Date: 03/15/17 Author: Patrick Ruiz MD,MPH Consulting Attending: Mellisa Haji MD Reason for Consult: [facility] ECMO Consideration HPI: 61 year old male who presents this afternoon to [facility] in acute cardiogenic shock second maciej to STEMI / thrombosed L main coronary artery. He was transferred from [place]. His symptoms started this morning around 3am and was seen in [place], [place]. 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 He was found to h ave [...] pressors (epinephrine and dopamine). On arrival to [facility], he was in profound cardiogenic shock and hypoxic. His MAP was in the 40s. He was tach ycardic into the 150s. IABP was increased to 1:2. Past Medical History: Past Medical History: Diagnosis Date Cardiogenic shock ([facility]) 03/15/2017 Coronary artery disease 03/15/2017 Hypercholesterolemia Hypertension STEMI (ST elevation myocardial infarction) ([facility]) 03/15/2017 Tobacco use Past Surgical History: Past [...] from cardiogenic shock. Patrick Ruiz MD, MPH embedded systems software engineer Trauma, Critical Care & Acute Care Surgery [facility] onies, Patrick Sexton MD,MPH - 03/15/2017 1:48 PM PDT . . Extracorporeal Life Support Service Initiation Note Pager #[phone] Date of service: 03/15/2017 Author: Patrick Ruiz Md,Mph ECMO Type: Veno-Arterial ([place]T 25996 [place] [address]) Oxygenation index FiO2: 100 MAP: 22 Diagnosis:Cardiogenic [...] old male who presents this afternoon to [facility] in acute cardiogenic shock secondary [...] | + +--------+ + + + | NV-SK-SPC-HB,POC RT | Routin | 03/19/2017 | ST [...] +---+--------+ + +--------+ + + + | BY-IA-ZND-HB,POC RT | Routin | 03/19/2017 | ST [...] | + +--------+ + + + | JC-KO-HQC-HB,POC RT | Routin | 03/19/2017 | ST elevation | Results for this | | | e | 10:06 AM | myocardial | procedure are in the | | | | PDT | infarction involving | results section. | | | | | left main coronary | | | | | | artery (HCC) | | + +--------+ + + + | LO-HS-BDD-HB,POC RT | Routin | 03/19/2017 | ST [...] | + +--------+ + + + | WP-KG-MJK-HB,POC RT | Routin | 03/17/2017 | ST [...] | + +--------+ + + + | KT-XM-XJY-HB,POC RT | Routin | 03/16/2017 | ST [...] | + +--------+ + + + | KS-QH-ZPJ-HB,POC RT | Routin | 03/16/2017 | ST [...] | + +--------+ + + + | ED-KR-UNY-HB,POC RT | Routin | 03/15/2017 | ST [...] | + +--------+ + + + | MN-XS-OJF-HB,POC RT | Routin | 03/15/2017 | ST [...] | + +--------+ + + + | QW-VU-MPK-HB,POC RT | Routin | 03/15/2017 | ST [...] Height: 175 cm Weight: 89 kgBSA: 2.05 [id number] PHYSICIAN:Katarina Ngo | | .FELLOW:Gerson Mejias M.D. [...] right coronary angiography.COMPLICATIONS:None.TECHNIQUE:Right femoral artery | | 6-Guyanese 10 cm [place]by[place] sheath, 6-Guyanese XB 3.5 guide catheter, 5-Guyanese JR4 | | catheter.DESCRIPTION OF PROCEDURE:Informed consent [...] modified Seldinger technique and a | | 5-Guyanese micropuncture system, a 6-Guyanese 10 cm [place]by[place] sheath was placed in the right | | femoral artery. A 6-Guyanese XB 3.5 guide catheter was inserted into the ascending aorta | | over a guidewire. The guidewire was removed. The catheter was aspirated and flushed. | | The left coronary system was selectively engaged and imaged in multiple projections. A | | 5-Guyanese Kymberly right 4 catheter was advanced to [...] DOSE AREA | | PRODUCT: 3749 cGy [id number]:Aortic pressure 87/15, mean aortic pressure 63, heart [...] 03/30/2017 04:50:01DT: | | 03/30/2017 08:34:34Job #: [id number] | |extending from it into the LAD. [...] |YDT/MODL | | | | | | /[id number] | + + CAPILLARY BLOOD GLUCOSE (NO [...] [facility] | [address] | [place], [place] | | | JULIANN SILVA OF CARE | [address] | [address] | | | TESTS | | | [...] | + + + + + | [facility] | [address] | [place] [address] | | | SERVICES, CORE | PARK [...] | + + + + + | [facility] | [address] | [place] [address] | | | SERVICES, CORE | PARK [...] [facility] | [address] | [place] [address] | | | SERVICES, CORE | PARK [...] | | | LABORATORY | | | RWANDAN | | | SERVICES, | | | [...] | + + + + + | [facility] | [address] | [place] [address] | | | ARASH, ИРИНА | PARK [...] ranges for full anticoagulation: INR for | [facility] | | Venous Thromboembolism (2.0 - 3.0) INR INR | LABORATORY | | for most patients with mech. valves (2.5 - 3.5) INR | ИРИНА ANTOINE | + + + + + + + + | Performing | Address | City/State/Zipcode | Phone Number | | Organization | | | | + + + + + | [facility] | [address] | [place] [address] | | | ИРИНА ANTOINE | TABITHA [...] | + + + + + | [facility] | [address] | [place] [address] | | | ARASH, ИРИНА | TABITHA [...] [facility] | [address] | [place], [place] | | | JULIANN SILVA OF ALEX[facility] | [address] | [address] | | | TESTS | | | [...] [facility] | [address] | [place], [place] | | | [facility]O PO[facility] CARE | [address] | [address] | | | TESTS | | | [...] + + + | [facility] | [address] | [place], [place] | | | [facility] | [address] | [address] | | | TESTS | | | [...] | + + + + + | [facility] | [address] | [place] [address] | | | SERVICES, CORE | TABITHA [...] | | | LABORATORY | | | RWANDAN | | | SERVICES, | | | [...] [facility] | [address] | [place] [address] | | | SERVICES, CORE | PARK [...] [facility] | [address] | [place] [address] | | | SERVICES, CORE | PARK [...] | + + + + + | [facility] | [address] | [place] [address] | | | SERVICES, CORE | TABITHA [...] [facility] | [address] | [place], [place] | | | [facility] POINT OF CARE | [address] | [address] | | | TESTS | | | [...] [facility] | [address] | [place], [place] | | | [facility]O POINT OF CARE | [address] | [address] | | | TESTS | | | [...] (H) | 70 - 99 mg/dL | [facility] - | | | GLUCOSE, [...] [facility] | [address] | [place], [place] | | | JULIANN S[facility] | [address] | [address] | | | TESTS | | | [...] [facility] | [address] | [place], [place] | | | JULIANN S[facility] CARE | [address] | [address] | | | TESTS | | | [...] [facility] | [address] | [place] [address] | | | SERVICES, CORE | PARK [...] | | | LABORATORY | | | RWANDAN | | | SERVICES, | | | [...] | + + + + + | [facility] | [address] | [place] [address] | | | SERVICES, ИРИНА | TABITHA [...] | + + + + + | [facility] | [address] | [place] [address] | | | ARASH, ИРИНА | TABITHA [...] [facility] | [address] | [place] [address] | | | SERVICES, CORE | TABITHA [...] | + + + + + | [facility] | [address] | [place] [address] | | | ARASH, ИРИНА | TABITHA [...] [facility] | [address] | [place], [place] | | | [facility] PO[facility] CARE | [address] | [address] | | | TESTS | | | [...] | | | LABORATORY | | | RWANDAN | | | SERVICES, | | | [...] | + + + + + | [facility] | [address] | [place] [address] | | | SERVICES, CORE | TABITHA [...] DEPT OF | [address] | [place], [place] | | | CARDIOLOGY | [address] | [address] | | + + + + + CAPILLARY BLOOD GLUCOSE (NO CHG), POC (03/30/2017 5:22 PM PDT) + +---------+ + + + | Component | Value | Ref Range | Performed | Pathologist | | | | | At | Signature | + +---------+ + + + | BLOOD | 116 (H) | 70 - 99 mg/dL | [facility] - | | | GLUCOSE, [...] [facility] | [address] | [place], [place] | | | [facility] [place] [facility] | [address] | [address] | | | TESTS | | | [...] | | | LABORATORY | | | RWANDAN | | | SERVICES, | | | [...] | + + + + + | [facility] | [address] | [place] [address] | | | SERVICES, CORE | PARK [...] | + + + + + | [facility] | [address] | [place] [address] | | | SERVICES, CORE | PARK [...] rmed At | + +------ + | [facility] | [facility] DEPT OF | | [facility] | CARDI OLOGY | | Laboratory [address] [place] [address] | | | [place] [address] Pt Name: | | | RON Chaudhary MIKE Study Date/Time 03/30/2017 / 10:44:00 | | | AMMRN: [id number] Most recent | | | prior: 03/19/17 #: [id number] No. 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 Patient | | | history has been [...] Report electronically signed by: | | | [id number] Jordon Neville MD (03/30/2017, 2:04:56 PM) Final | | | | | |Wall Scoring: | | | | | | | | |Report electronically signed by: [id number] Jordon Neville MD (03/30/2017, 2:04:56 PM) | | | | | | | | | | | | Final | | + +------ + + + | Procedure Note | + + | Interface, Cardiology Results - 03/30/2017 2:04 PM [facility] | | [facility] Echocardiography Laboratory [address] [place] [address] | | [place], [place] [address] Pt Name: RON Chaudhary | | MIKE Study Date/Time 03/30/2017 / 10:44:00 AMMRN: [id number] Most | | recent prior: 03/19/17 #: [id number] No. 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 Patient history has been | | obtained [...] Scoring: Report | | electronically signed by: [id number] Jordon Neville MD (03/30/2017, 2:04:56 PM) Final [...] | | | |Report electronically signed by: [id number] Jordon Neville MD (03/30/2017, 2:04:56 PM) | | | | | | | | Final | + + + + + + + | Performing | Address | City/State/Zipcode | Phone Number | | Organization | | | | + + + + + | [facility] | [address] | [place], [place] | | | CARDIOLOGY | [address] | [address] | | + + + + + CAPILLARY BLOOD GLUCOSE (NO CHG), POC (03/30/2017 9:08 AM PDT) + +---------+ + + + | Component | Value | Ref Range | Performed | Pathologist | | | | | At | Signature | + +---------+ + + + | BLOOD | 110 (H) | 70 - 99 mg/dL | [facility] - | | | GLUCOSE, [...] [facility] | [address] | [place], [place] | | | JULIANN SILVA OF CARE | [address] | [address] | | | TESTS | | | [...] | + + + + + | [facility] | [address] | [place] [address] | | | SERVICES, CORE | TABITHA [...] [facility] | [address] | [place], [place] | | | [facility]ICARDO [facility] | [address] | [address] | | | TESTS | | | [...] + | [facility] | [address] | [place], [place] | | | CARDIOLOGY | [address] | [address] | | + + + + + [...] | | | LABORATORY | | | RWANDAN | | | SERVICES, | | | [...] [facility] | [address] | [place] [address] | | | SERVICES, CORE | PARK [...] | + + + + + | [facility] | [address] | [place] [address] | | | SERVICES, CORE | PARK [...] | + + + + + | [facility] | [address] | [place] [address] | | | SERVICES, CORE | TABITHA [...] OF | [address] | [place], [place] | | | CARDIOLOGY | [address] | [address] | | + + + + + [...] + + | [facility] | [address] | [place], [place] | | | CARDIOLOGY | [address] | [address] | | + + + + + [...] | + + + + + | [facility] | [address] | [place] [address] | | | SERVICES, CORE | TABITHA [...] | + + + + + | [facility] | [address] [facility] | [place] [address] | | | SERVICES, ИРИНА | TABITHA [...] [facility] | [address] | [place] [address] | | | SERVICES, CORE | TABITHA [...] | + + + + + | [facility] | [address] | [place] [address] | | | SERVICES, ИРИНА | TABITHA [...] [facility] | [address] | [place], [place] | | | JULIANN SILVA OF [facility] | [address] | [address] | | | TESTS | | | [...] [facility] | [address] | [place] [address] | | | SERVICES, CORE | PARK [...] DEPT OF | [address] | [place], [place] | | | CARDIOLOGY | [facility] | [address] | | + + + + + CAPILLARY BLOOD GLUCOSE (NO CHG), POC (03/29/2017 8:16 PM PDT) + +---------+ + + + | Component | Value | Ref Range | Performed | Pathologist | | | | | At | Signature | + +---------+ + + + | BLOOD | 105 (H) | 70 - 99 mg/dL | [facility] - | | | GLUCOSE, [...] MARIA | [address] | [place], [place] | | | R[facility]ARDO PO[facility] CARE | [address] | [address] | | | TESTS | | | [...] R[facility] | [address] | [place], [place] | | | JULIANN SILVA OF [facility] | [facility] | [address] | | | TESTS | | | [...] | + + + + + | [facility] | [address] | [place] [address] | | | ИРИНА ANTOINE | TABITHA [...] MARIA | [address] | [place], [place] | | | JULIANN SILVA OF [facility] | [address] | [address] | | | TESTS | | | [...] [facility] | [address] | [place] [address] | | | SERVICES, CORE | PARK [...] | | | LABORATORY | | | RWANDAN | | | SERVICES, | | | [...] | + + + + + | [facility] | [address] | [place] [address] | | | SERVICES, CORE | TABITHA [...] (H) | 0.90 - 1.20 INR | [facility] | | | | | | LABORATORY [...] [facility] | [address] | [place] [address] | | | ИРИНА ANTOINE | TABITHA [...] [facility] | [address] | [place] [address] | | | SERVICES, CORE | PARK [...] | + + + + + | [facility] | [address] | [place] [address] | | | SERVICES, CORE | TABITHA [...] | + + + + + | [facility] | [address] [facility] | [place] [address] | | | SERVICES, CORE | TABITHA [...] [facility] | [address] | [place], [place] | | | JULIANN SILVA OF CARE | [address] | [address] | | | TESTS | | | [...] (H) | 70 - 99 mg/dL | [facility] - | | | GLUCOSE, [...] - [facility] | [address] | [place], [place] | | | [facility]ARE | [address] | [address] | | | TESTS | | | [...] | | | LABORATORY | | | RWANDAN | | | SERVICES, | | | [...] [facility] | [address] | [place] [address] | | | ARASH, ИРИНА | PARK [...] [facility] | [address] | [place] [address] | | | SERVICES, CORE | PARK [...] | | | LABORATORY | | | RWANDAN | | | SERVICES, | | | [...] | + + + + + | [facility] | [address] | [place] [address] | | | ARASH, ИРИНА | TABITHA [...] 93 | 70 - 99 mg/dL | [facility] - | | | GLUCOSE, [...] R[facility] | [address] | [place], [place] | | | JULIANN SILVA OF CARE | [facility] | [address] | | | TESTS | | | [...] MARIA | [address] | [place], [place] | | | JULIANN SILVA OF [facility] | [address] | [address] | | | TESTS | | | [...] [facility] | [address] | [place] [address] | | | ИРИНА ANTOINE | TABITHA [...] | | | LABORATORY | | | RWANDAN | | | SERVICES, | | | [...] | + + + + + | [facility] | [address] [facility] | [place] [address] | | | SERVICES, CORE | TABITHA [...] | + + + + + | [facility] | [address] | [place] [address] | | | SERVICES, ИРИНА | TABITHA [...] ranges for full anticoagulation: INR for | [facility] | | Venous Thromboembolism (2.0 - 3.0) INR INR | LABORATORY | | for most patients with mech. valves (2.5 - 3.5) INR | ИРИНА ANTOINE | + + + + + + + + | Performing | Address | City/State/Zipcode | Phone Number | | Organization | | | | + + + + + | [facility] | [address] [facility] | [place] [address] | | | SERVICES, ИРИНА | TABITHA [...] [facility] | [address] | [place] [address] | | | ARASH, ИРИНА | PARK [...] [facility] | [address] | [place], [place] | | | JULIANN SILVA OF [facility] | [address] | [address] | | | TESTS | | | [...] [facility] | [address] | [place], [place] | | | [facility]ARE | [address] | [address] | | | TESTS | | | [...] [facility] | [address] | [place], [place] | | | [facility]ARE | [address] | [address] | | | TESTS | | | [...] (H) | 70 - 99 mg/dL | [facility] - | | | GLUCOSE, | | [...] [facility] | [address] | [place], [place] | | | JULIANN SILVA OF [facility] | [address] | [address] | | | TESTS | | | [...] + + | [facility] | [address] [facility] | [place] [address] | | | SERVICES, CORE | TABITHA [...] | + + + + + | [facility] | [address] [facility] | [place] [address] | | | SERVICES, CORE | TABITHA [...] | | | LABORATORY | | | RWANDAN | | | SERVICES, | | | [...] + + | [facility] | [address] [facility] | [place] [address] | | | SERVICES, CORE | PARK [...] | + + + + + | [facility] | [address] [facility] | [place] [address] | | | SERVICES, CORE | TABITHA [...] | + + + + + | [facility] | [address] | [place] [address] | | | ИРИНА ANTOINE | TABITHA [...] [facility] | [address] | [place], [place] | | | JULIANN SILVA OF [facility] | [address] | [address] | | | TESTS | | | [...] MAR[facility] | [address] | [place], [place] | | | [facility] PO[facility] CARE | [address] | [address] | | | TESTS | | | [...] | | | LABORATORY | | | RWANDAN | | | SERVICES, | | | [...] | + + + + + | [facility] | [address] | [place] [address] | | | SERVICES, ИРИНА | TABITHA [...] MARIA | [address] | [place], [place] | | | JULIANN SILVA OF [facility] | [address] | [address] | | | TESTS | | | [...] EULOGIO [facility]RES[facility] | [address] | [place] [address] | | | ARASH, ИРИНА | TABITHA [...] | + + + + + | [facility] | [address] | [place] [address] | | | ИРИНА ANTOINE | TABITHA [...] [facility] | [address] | [place] [address] | | | SERVICES, CORE | PARK [...] | | | LABORATORY | | | RWANDAN | | | SERVICES, | | | [...] | + + + + + | [facility] | [address] [facility] | [place] [address] | | | SERVICES, CORE | PARK [...] | + + + + + | [facility] | [address] | [place] [address] | | | ИРИНА ANTOINE | TABITHA [...] | + + + + + | [facility] | [address] | [place] [address] | | | SERVICES, CORE | PARK [...] | [facility] | | considered for monitoring longterm glycemic control in patients with: | LABORATORY [...] | + + + + + | [facility] | [address] | [place] [address] | | | SERVICES, SPECIAL | TABITHA [...] [facility] | [address] | [place] [address] | | | SERVICES, CORE | PARK [...] - [facility] | [address] | [place], [place] | | | [facility]ARE | [address] | [address] | | | TESTS | | | [...] (H) | 70 - 99 mg/dL | [facility] - | | | GLUCOSE, [...] + + + | [facility] | [address] | [place], [place] | | | JULIANN SILVA OF [facility] | [address] | [address] | | | TESTS | | | [...] [facility] | [address] | [place] [address] | | | ARASH, ИРИНА | TABITHA [...] | [facility] | | | GRAVITY | [place] performed by | | LABORATORY | | [...] [facility] | [address] | [place] [address] | | | ARASH, CORE | TABITHA [...] | + + + + + | [facility] | [address] | [place] [address] | | | [place] | | | | + + + [...] R[facility] | [address] | [place], [place] | | | [facility]ARE | [address] | [address] | | | TESTS | | | [...] MARIA | [address] | [place], [place] | | | JULIANN SILVA OF [facility] | [facility] | [address] | | | TESTS | | | [...] | + + + + + | [facility] | [address] | [place] [address] | | | ARASH, ИРИНА | TABITHA [...] [facility] | [address] | [place] [address] | | | SERVICES, CORE | TABITHA [...] | + + + + + | [facility] | [address] | [place] [address] | | | SERVICES, CORE | TABITHA [...] [facility] | [address] | [place] [address] | | | SERVICES, CORE | PARK [...] | | | LABORATORY | | | RWANDAN | | | SERVICES, | | | [...] [facility] | [address] | [place] [address] | | | ARASH, ИРИНА | TABITHA [...] | + + + + + | [facility] | [address] | [place] [address] | | | ИРИНА ANTOINE | TABITHA [...] MARIA | [address] | [place], [place] | | | JULIANN SILVA OF CARE | [facility] | [address] | | | TESTS | | | [...] (H) | 70 - 99 mg/dL | [facility] - | | | GLUCOSE, [...] [facility] | [address] | [place], [place] | | | [facility] PO[facility] CARE | [address] | [address] | | | TESTS | | | [...] [facility] | [address] | [place], [place] | | | JULIANN SILVA OF [facility] | [address] | [address] | | | TESTS | | | [...] MARIA | [address] | [place], [place] | | | JULIANN SILVA OF [facility] | [address] | [address] | | | TESTS | | | [...] + + | [facility] | [address] [facility] | [place] [address] | | | SERVICES, CORE | PARK [...] [facility] | [address] | [place] [address] | | | SERVICES, CORE | PARK [...] + + + + | [facility] | [address] | [place], [place] | | | RICARDO [facility] | [address] | [address] | | | TESTS | | | [...] | | | attempt. Midline lot number [id number]; there was + blood | | | [...] MARQU[facility] | [address] | [place], [place] | | | JULIANN SILVA OF CARE | [address] | [address] | | | TESTS | | | [...] MARIA | [address] | [place], [place] | | | [facility] PO[facility] CARE | [address] | [address] | | | TESTS | | | [...] | + + + + + | [facility] | [address] | [place] [address] | | | SERVICES, CORE | TABITHA [...] (H) | 70 - 99 mg/dL | [facility] - | | | GLUCOSE, | | [...] [facility] | [address] | [place], [place] | | | JULIANN SILVA OF [facility] | [address] | [address] | | | TESTS | | | [...] MARIA | [address] | [place], [place] | | | JULIANN SILVA OF [facility] | [facility] | [address] | | | TESTS | | | [...] (H) | 70 - 99 mg/dL | [facility] - | | | GLUCOSE, [...] [facility] | [address] | [place], [place] | | | JULIANN SILVA OF CARE | [address] | [address] | | | TESTS | | | [...] R[facility] | [address] | [place], [place] | | | GURINDER SILVA | [facility] | [address] | | | TESTS | | | [...] [facility] | [address] | [place] [address] | | | ИРИНА ANTOINE | TABITHA [...] + + | [facility] | [address] [facility] | [place] [address] | | | ИРИНА ANTOINE | TABITHA [...] [facility] | [address] | [place] [address] | | | SERVICES, CORE | PARK [...] | | | LABORATORY | | | RWANDAN | | | SERVICES, | | | [...] + + | Performing | Address | City/State/Unm Hospitalcode | Phone Number | | Organization | | | | + + + + + | [facility] | [address] | [place] [address] | | | ИРИНА ANTOINE | PARK [...] | + + + + + | [facility] | [address] | [place] [address] | | | ИРИНА ANTOINE | TABITHA [...] (H) | 70 - 99 mg/dL | [facility] - | | | GLUCOSE, [...] MARIA | [address] | [place], [place] | | | JULIANN SILVA OF [facility] | [address] | [address] | | | TESTS | | | [...] R[facility]GERS | [address] | [place], [place] | | | JULIANN SILVA OF [facility]LEX[facility] | [facility] | [address] | | | TESTS | | | [...] - [facility] | [address] | [place], [place] | | | JULIANN SILVA OF CARE | [facility] | [address] | | | TESTS | | | [...] (H) | 70 - 99 mg/dL | [facility] - | | | GLUCOSE, [...] MARIA | [address] | [place], [place] | | | JULIANN SILVA OF CARE | [address] | [address] | | | TESTS | | | [...] [facility] | [address] | [place] [address] | | | ARASH, CORE | PARK [...] - [facility] | [address] | [place], [place] | | | [facility]O PO[facility] CARE | [address] | [address] | | | TESTS | | | [...] (H) | 70 - 99 mg/dL | [facility] - | | | GLUCOSE, [...] + + + | [facility] | [address] | [place], [place] | | | JULIANN SILVA OF [facility] | [address] | [address] | | | TESTS | | | [...] | + + + + + | [facility] | [address] [facility] | [place] [address] | | | SERVICES, CORE | TABITHA [...] [facility] | [address] | [place], [place] | | | R[facility]O POINT OF CARE | [address] | [address] | | | TESTS | | | [...] [facility] | [address] | [place], [place] | | | [facility]O PO[facility] CARE | [address] | [address] | | | TESTS | | | [...] R[facility] | [address] | [place], [place] | | | JULIANN SILVA OF CARE | [address] | [address] | | | TESTS | | | [...] [facility] | [address] | [place], [place] | | | R[facility]O PO[facility] CARE | [address] | [address] | | | TESTS | | | [...] | [facility] | [address] | [place], [place] | | | [facility]O POINT OF CARE | [address] | [address] | | | TESTS | | | [...] + + | [facility] | [address] [facility] | [place] [address] | | | SERVICES, CORE | PARK [...] | + + + + + | [facility] | [address] | [place] [address] | | | SERVICES, CORE | TABITHA [...] | + + + + + | [facility] | [address] | [place] [address] | | | SERVICES, CORE | TABITHA [...] | | | LABORATORY | | | RWANDAN | | | SERVICES, | | | [...] [facility] | [address] | [place] [address] | | | SERVICES, CORE | TABITHA [...] | + + + + + | [facility] | [address] | [place] [address] | | | SERVICES, ИРИНА | TABITHA [...] [facility] | [address] | [place], [place] | | | R[facility]ARDO POINT OF CARE | [facility] | [address] | | | TESTS | | | [...] - [facility] | [address] | [place], [place] | | | R[facility]O POINT OF CARE | [address] | [address] | | | TESTS | | | [...] + + + | [facility] | [address] | [place], [place] | | | R[facility]O POINT OF CARE | [address] | [address] | | | TESTS | | | [...] [facility] | [address] | [place], [place] | | | JULIANN SILVA OF CARE | [address] | [address] | | | TESTS | | | [...] - [facility] | [address] | [place], [place] | | | [facility] PO[facility]ARE | [address] | [address] | | | TESTS | | | [...] R[facility] | [address] | [place], [place] | | | [facility]O PO[facility] CARE | [address] | [address] | | | TESTS | | | [...] | + + + + + | [facility] | [address] | [place] [address] | | | ИРИНА ANTOINE | TABITHA [...] (H) | 70 - 99 mg/dL | [facility] - | | | GLUCOSE, [...] R[facility] | [address] | [place], [place] | | | [facility]O PO[facility] CARE | [address] | [address] | | | TESTS | | | [...] R[facility]GERS | [address] | [place], [place] | | | JULIANN SILVA OF [facility] | [address] | [address] | | | TESTS | | | [...] MARIA | [address] | [place], [place] | | | JULIANN SILVA OF CARE | [facility] | [address] | | | TESTS | | | [...] (H) | 70 - 99 mg/dL | [facility] - | | | GLUCOSE, [...] R[facility]GERS | [address] | [place], [place] | | | [facility]O PO[facility] CARE | [address] | [address] | | | TESTS | | | [...] MARIA | [address] | [place], [place] | | | JULIANN SILVA OF [facility] | [address] | [address] | | | TESTS | | | [...] | + + + + + | [facility] | [address] | [place] [address] | | | SERVICES, CORE | [address] | | | + + + + + CAPILLARY BLOOD GLUCOSE (NO CHG), POC (03/22/2017 10:58 AM PDT) + +---------+ + + + | Component | Value | Ref Range | Performed | Pathologist | | | | | At | Signature | + +---------+ + + + | BLOOD | 129 (H) | 70 - 99 mg/dL | [facility] - | | | GLUCOSE, | | [...] RODGERS | [address] | [place], [place] | | | JULIANN SILVA OF CARE | [address] | [address] | | | TESTS | | | [...] [facility]QU[facility] | [address] | [place], [place] | | | [facility]O PO[facility] CARE | [address] | [address] | | | TESTS | | | [...] MARQU[facility] | [address] | [place], [place] | | | JULIANN SILVA OF [facility] | [facility] | [address] | | | TESTS | | | [...] RODGERS | [address] | [place], [place] | | | JULIANN SILVA OF [facility] | [address] | [address] | | | TESTS | | | [...] MARQU[facility] | [address] | [place], [place] | | | [facility]O PO[facility] CARE | [address] | [address] | | | TESTS | | | [...] MARIA | [address] | [place], [place] | | | RICARDO PO[facility] OF [facility] | [facility] | [address] | | | TESTS | | | [...] | + + + + + | [facility] | [address] | [place] [address] | | | SERVICES, | [address] [...] [facility] | [address] | [place] [address] | | | SERVICES, | [address] [...] + + + + | PRODUCT | [id number] | | [facility] | | | UNIT [...] + + + + | EXPIRATION | [id number] | | [facility] | | | DATE [...] + + + + | BLOOD | [id number] | | [facility] | | | PRODUCT [...] [facility] | [address] | [place] [address] | | | SERVICES, | [address] [...] [facility] | [address] | [place] [address] | | | SERVICES, CORE | PARK [...] [facility] | [address] | [place] [address] | | | SERVICES, CORE | TABITHA [...] | + + + + + | [facility] | [address] | [place] [address] | | | SERVICES, CORE | PARK [...] | + + + + + | [facility] | [address] | [place] [address] | | | SERVICES, CORE | PARK [...] + + | [facility] | [address] [facility] | [place] [address] | | | SERVICES, CORE | PARK [...] | | | LABORATORY | | | RWANDAN | | | SERVICES, | | | [...] LABORATORY | [address] | [place] [address] | | | ARASH, ИРИНА | TABITHA [...] (H) | 70 - 99 mg/dL | [facility] - | | | GLUCOSE, [...] [facility] | [address] | [place], [place] | | | JULIANN SILVA OF ALEX[facility] | [facility] | [address] | | | TESTS | | | [...] R[facility] | [address] | [place], [place] | | | [facility]O PO[facility] CARE | [address] | [address] | | | TESTS | | | [...] MARQU[facility] | [address] | [place], [place] | | | JULIANN SILVA OF CARE | [facility] | [address] | | | TESTS | | | [...] MARQUAM | [address] | [place], [place] | | | JULIANN SILVA OF ALEXIS | [facility] | [address] | | | TESTS | | | [...] R[facility]GERS | [address] | [place], [place] | | | [facility]O PO[facility] CARE | [address] | [address] | | | TESTS | | | [...] MARQU[facility] | [address] | [place], [place] | | | JULIANN SILVA OF CARE | [facility] | [address] | | | TESTS | | | [...] MARQU[facility] | [address] | [place], [place] | | | JULIANN SILVA OF [facility] | [address] | [address] | | | TESTS | | | [...] RODGERS | [address] | [place], [place] | | | [facility]O PO[facility]ARE | [address] | [address] | | | TESTS | | | [...] MARRANDIAM | [address] | [place], [place] | | | RICARDO [facility] | [address] | [address] | | | TESTS | | | [...] | | | LABORATORY | | | RWANDAN | | | SERVICES, | | | [...] | + + + + + | [facility] | [address] | [place] [address] | | | SERVICES, ИРИНА | TABITHA [...] MARIA | [address] | [place], [place] | | | JULIANN SILVA OF ALEXIS | [facility] | [address] | | | TESTS | | | [...] (H) | 70 - 99 mg/dL | [facility] - | | | GLUCOSE, [...] RODGERS | [address] | [place], [place] | | | [facility] | [address] | [address] | | | TESTS | | | [...] MARIA | [address] | [place], [place] | | | JULIANN [facility] | [address] | [address] | | | TESTS | | | [...] on the 1 attempt. Midline lot number [id number]; there was + | | | blood [...] RODGERS | [address] | [place], [place] | | | JULIANN SILVA OF CARE | [facility] | [address] | | | TESTS | | | [...] MARIA | [address] | [place], [place] | | | JULIANN [facility]ARE | [address] | [address] | | | TESTS | | | [...] [facility] | [address] | [place] [address] | | | SERVICES, CORE | PARK [...] MARIA | [address] | [place], [place] | | | JULIANN SILVA OF [place] | [address] | [address] | | | TESTS | | | [...] | + + + + + | [facility] | [address] [facility] | [place] [address] | | | ИРИНА ANTOINE | TABITHA [...] MARQUAM | [address] | [place], [place] | | | [place], [facility] | [address] | [address] | | | TESTS | | | [...] (H) | 70 - 99 mg/dL | [facility] - | | | GLUCOSE, | | [...] MARQUAM | [address] | [place], [place] | | | JULIANN SILVA OF [place] | [facility] | [address] | | | TESTS | | | [...] RODGERS | [address] | [place], [place] | | | [facility] | [address] | [address] | | | TESTS | | | [...] MARQUAM | [address] | [place], [place] | | | [facility], [facility] | [address] | [address] | | | TESTS | | | [...] [facility] | [address] | [place] [address] | | | SERVICES, CORE | PARK [...] [facility] | [address] | [place] [address] | | | ARASH, ИРИНА | PARK [...] | + + + + + | [facility] | [address] | [place] [address] | | | SERVICES, CORE | TABITHA [...] | | | LABORATORY | | | RWANDAN | | | SERVICES, | | | [...] | + + + + + | [facility] | [address] | [place] [address] | | | SERVICES, CORE | TABITHA [...] (H) | 70 - 99 mg/dL | [facility] - | | | GLUCOSE, | | [...] RODGERS | [address] | [place], [place] | | | [facility] | [address] | [address] | | | TESTS | | | [...] MARQUAM | [address] | [place], [place] | | | [facility] | [address] | [address] | | | TESTS | | | [...] RODGERS | [address] | [place], [place] | | | [facility] | [address] | [address] | | | TESTS | | | [...] RODGERS | [address] | [place], [place] | | | JULIANN SILVA OF [facility] | [address] | [address] | | | TESTS | | | [...] ANA MARIA | [address] | [place], [place] | | | JULIANN SILVA OF [facility] | [address] | [address] | | | TESTS | | | [...] | + + + + + | [facility] | [address] | [place] [address] | | | SERVICES, CORE | TABITHA [...] MARQUAM | [address] | [place], [place] | | | JULIANN SIL[facility] CARE | [address] | [address] | | | TESTS | | | [...] MARQUAM | [address] | [place], [place] | | | JULIANN SILVA [facility] CARE | [address] | [address] | | | TESTS | | | [...] RODGERS | [address] | [place], [place] | | | JULIANN SILVA [facility] CARE | [address] | [address] | | | TESTS | | | [...] MARQUAM | [address] | [place], [place] | | | JULIANN SILVA [facility] CARE | [address] | [address] | | | TESTS | | | [...] MARQUAM | [address] | [place], [place] | | | [facility] | [address] | [address] | | | TESTS | | | [...] RODGERS | [address] | [place], [place] | | | [facility] | [address] | [address] | | | TESTS | | | [...] MARQUAM | [address] | [place], [place] | | | JULIANN SIL[facility] CARE | [address] | [address] | | | TESTS | | | [...] | + + + + + | [facility] | [address] | [place] [address] | | | SERVICES, CORE | TABITHA [...] RODGERS | [address] | [place], [place] | | | [facility] | [address] | [address] | | | TESTS | | | [...] MARIA | [address] [address] | [place], [place] | | | [facility] | [address] | [address] | | | TESTS | | | [...] | + + + + + | [facility] | [address] | [place] [address] | | | SERVICES, CORE | TABITHA [...] (H) | 70 - 99 mg/dL | [facility] - | | | GLUCOSE, [...] RODGERS | [address] | [place], [place] | | | RICARDO PO[facility] CARE | [address] | [address] | | | TESTS | | | [...] the tip in the proximal gastric body. Windsor Олег | | | catheter in place. [...] Note | + + | Service Account, Chemclin Res In Interface - 03/20/2017 2:38 PM PDT EXAM: Supine | | frontal view of the abdomen. HISTORY: Study to evaluate feeding tube | | positionCOMPARISON: Chest Xray dated 03/19/2017.FINDINGS AND IMPRESSION:Feeding tube is | | seen in the stomach with the tip in the proximal gastric body.Windsor Олег catheter in | | place.Limited evaluation of the lungs as technique was tailored for feeding tube.I have | | personally reviewed the images and, if necessary, edited the report. I agree with the | | report as now presented. | | | |Feeding tube is seen in the stomach with the tip in the proximal gastric body. | |Windsor Олег catheter in place. | |Limited evaluation [...] RODGERS | [address] | [place], [place] | | | JULIANN SILVA OF CARE | [facility] | [address] | | | TESTS | | | [...] MARIA | [address] | [place], [place] | | | JULIANN S[facility] OF [place] | [address] | [address] | | | TESTS | | | [...] ANA MARIA | [address] | [place], [place] | | | JULIANN SILVA OF CARE | [facility] | [address] | | | TESTS | | | [...] (H) | 70 - 99 mg/dL | [facility] - | | | GLUCOSE, [...] RODGERS | [address] | [place], [place] | | | JULIANN SILVA OF CARE | [facility] | [address] | | | TESTS | | | [...] MARIA | [address] | [place], [place] | | | J[facility]ANN [facility] [place] | [address] | [address] | | | TESTS | | | [...] | + + + + + | [facility] | [address] [facility] | [place] [address] | | | SERVICES, CORE | PARK [...] | + + + + + | [facility] | [address] | [place] [address] | | | SERVICES, CORE | TABITHA [...] | + + + + + | [facility] | [address] | [place] [address] | | | ИРИНА ANTOINE | PARK [...] MARQUAM | [address] | [place], [place] | | | R[facility]ARDO POINT OF CARE | [address] | [address] | | | TESTS | | | [...] | | + +---------+ + + | [facility] | | | | [...] - MARRANDIAM | [address] | [place], [place] | | | JULIANN SILVA OF CARE | [address] | [address] | | | TESTS | | | [...] RODGERS | [address] | [place], [place] | | | JULIANN SILAV OF [place] | [address] | [address] | | | TESTS | | | [...] MARQUAM | [address] | [place], [place] | | | JULIANN SILVA OF CARE | [address] | [address] | | | TESTS | | | [...] MARIA | [address] | [place], [place] | | | [facility] | [address] | [address] | | | TESTS | | | [...] [facility] | [address] | [place] [address] | | | SERVICES, CORE | PARK [...] [facility] | [address] | [place] [address] | | | SERVICES, CORE | TABITHA [...] [facility] | [address] | [place] [address] | | | ARASH, ИРИНА | TABITHA [...] [facility] | [address] | [place] [address] | | | SERVICES, CORE | PARK [...] | | | LABORATORY | | | RWANDAN | | | SERVICES, | | | [...] | + + + + + | [facility] | [address] [facility] [address] | [place] [address] | | | SERVICES, CORE | TABITHA [...] - MARQUAM | [address] | [place], [place] | | | JULIANN SILVA OF CARE | [facility] | [address] | | | TESTS | | | [...] RODGERS | [address] | [place], [place] | | | JULIANN S[facility] OF [facility] | [address] | [address] | | | TESTS | | | [...] | + + + + + | [facility] | [address] | [place] [address] | | | ARASH CORE | PARK [...] MARQUAM | [address] | [place], [place] | | | JULIANN SILVA OF CARE | [facility] | [address] | | | TESTS | | | [...] (H) | 70 - 99 mg/dL | [facility] - | | | GLUCOSE, [...] MARIA | [address] | [place], [place] | | | [facility]ANN [facility] | [address] | [address] | | | TESTS | | | [...] | + + + + + | [facility] | [address] | [place] [address] | | | SERVICES, CORE | TABITHA [...] MARQUAM | [address] | [place], [place] | | | RICARDO POINT OF CARE | [address] | [address] | | | TESTS | | | [...] | + + + + + | [facility] | [address] | [place] [address] | | | SERVICES, ИРИНА | TABITHA [...] MARQUAM | [address] | [place], [place] | | | JULIANN SILVA OF CARE | [facility] | [address] | | | TESTS | | | [...] [facility] | [address] | [place] [address] | | | SERVICES, CORE | PARK [...] | + + + + + | [facility] | [address] [facility] [address] | [place] [address] | | | SERVICES, CORE | TABITHA [...] (H) | 70 - 99 mg/dL | [facility] - | | | GLUCOSE, [...] + + + | [facility] | [address] | [place], [place] | | | RICARDO POINT OF CARE | [address] | [address] | | | TESTS | | | [...] [facility] | [address] | [place] [address] | | | SERVICES, CORE | TABITHA [...] | + + + + + | [facility] | [address] | [place] [address] | | | SERVICES, CORE | TABITHA [...] | + + + + + | [facility] | [address] | [place] [address] | | | SERVICES, CORE | PARK [...] | + + + + + | [facility] | [address] | [place] [address] | | | SERVICES, CORE | TABITHA [...] MARQUAM | [address] | [place], [place] | | | JULIANN SILVA OF CARE | [address] | [address] | | | TESTS | | | [...] MARRANDIAM | [address] | [place], [place] | | | RICARDO POINT OF CARE | [address] | [address] | | | TESTS | | | [...] (H) | 70 - 99 mg/dL | [facility] - | | | GLUCOSE, [...] RODGERS | [address] | [place], [place] | | | JULIANN S[facility] OF [facility] | [address] | [address] | | | TESTS | | | [...] | + + + + + | [facility] | [address] [facility] [address] | [place] [address] | | | SERVICES, CORE | PARK [...] DEPT OF | [address] | [place], [place] | | | CARDIOLOGY | [facility] | [address] | | + + + + + CAPILLARY BLOOD GLUCOSE (NO CHG), POC (03/19/2017 1:05 PM PDT) + +---------+ + + + | Component | Value | Ref Range | Performed | Pathologist | | | | | At | Signature | + +---------+ + + + | BLOOD | 137 (H) | 70 - 99 mg/dL | [facility] - | | | GLUCOSE, [...] RODGERS | [address] | [place], [place] | | | R[facility]O POINT [facility] CARE | [address] | [address] | | | TESTS | | | | + + + + + AE-WE-UJW-HBPOC RT (03/19/2017 1:04 PM PDT) + + [...] OHM[facility]Y RODG[facility] | [address] | [place], [place] | | | [facility] | [address] | [address] | | | TESTS | | | [...] + + + + | PRODUCT | [id number] | | [facility] | | | UNIT [...] + + + + | EXPIRATION | [id number] | | [facility] | | | DATE [...] + + + + | BLOOD | [id number] | | [facility] | | | PRODUCT [...] LABORATORY | [address] | [place] [address] | | | SERVICES, | [address] [...] + + + + | PRODUCT | [id number] | | [facility] | | | UNIT [...] + + + + | EXPIRATION | [id number] | | [facility] | | | DATE [...] + + + + | BLOOD | [id number] | | [facility] | | | PRODUCT [...] | + + + + + | [facility] | [address] | [place] [address] | | | SERVICES, | [address] [...] + + + + | PRODUCT | [id number] | | [facility] | | | UNIT [...] + + + + | EXPIRATION | [id number] | | [facility] | | | DATE [...] + + + + | BLOOD | [id number] | | [facility] | | | PRODUCT [...] | + + + + + | [facility] | [address] | [place] [address] | | | SERVICES, | [address] [...] + + + + | PRODUCT | [id number] | | [facility] | | | UNIT [...] + + + + | EXPIRATION | [id number] | | [facility] | | | DATE [...] + + + + | BLOOD | [id number] | | [facility] | | | PRODUCT [...] | + + + + + | [facility] | [address] | [place] [address] | | | SERVICES, | [address] [...] [facility] | [address] | [place] [address] | | | SERVICES, ИРИНА | TABITHA [...] | | | LABORATORY | | | RWANDAN | | | SERVICES, | | | [...] | + + + + + | [facility] | [address] | [place] [address] | | | SERVICES, CORE | TABITHA [...] | + + + + + | [facility] | [address] | [place] [address] | | | SERVICES, CORE | TABITHA [...] | + + + + + | [facility] | [address] | [place] [address] | | | SERVICES, CORE | TABITHA [...] Siria | | | GISELL Preston PhD [facility] [address] [id number] [place], | | | [place] [address] | | + + + ABG-FULL ABL, [...] MARIA | [address] | [place], [place] | | | JULIANN SILVA OF CARE | [address] | [address] | | | TESTS | | | [...] MARQUAM | [address] | [place], [place] | | | JULIANN S[facility]VA OF [facility] | [address] | [address] | | | TESTS | | | | + + + + + OY-ED-OYH-HB,POC RT (03/19/2017 10:24 AM PDT) + + [...] RODGERS | [address] | [place], [place] | | | RICARDO POINT OF CARE | [address] | [address] | | | TESTS | | | [...] MARIA | [address] | [place], [place] | | | JULIANN SILVA OF [facility] | [facility] | [address] | | | TESTS | | | | + + + + + EI-IA-PDF-HB,POC RT (03/19/2017 10:06 AM PDT) + + [...] MARQUAM | [address] | [place], [place] | | | JULIANN SILVA OF CARE | [address] | [address] | | | TESTS | | | | + + + + + VY-RO-OBR-HB,POC RT (03/19/2017 9:51 AM PDT) + + [...] RODGERS | [address] | [place], [place] | | | JULIANN SILVA OF [facility] | [address] | [address] | | | TESTS | | | [...] + + + + | PRODUCT | [id number] | | [facility] | | | UNIT [...] + + + + | EXPIRATION | [id number] | | [facility] | | | DATE [...] + + + + | BLOOD | [id number] | | [facility] | | | PRODUCT [...] | + + + + + | [facility] | [address] | [place] [address] | | | SERVICES, | [address] [...] + + + + | PRODUCT | [id number] | | [facility] | | | UNIT [...] + + + + | EXPIRATION | [id number] | | [facility] | | | DATE [...] + + + + | BLOOD | [id number] | | [facility] | | | PRODUCT [...] [facility] | [address] | [place] [address] | | | SERVICES, | [address] [...] + + + + | PRODUCT | [id number] | | [facility] | | | UNIT [...] + + + + | EXPIRATION | [id number] | | [facility] | | | DATE [...] + + + + | BLOOD | [id number] | | [facility] | | | PRODUCT [...] [facility] | [address] | [place] [address] | | | SERVICES, | [address] [...] + + + + | PRODUCT | [id number] | | [facility] | | | UNIT [...] + + + + | EXPIRATION | [id number] | | [facility] | | | DATE [...] + + + + | BLOOD | [id number] | | [facility] | | | PRODUCT [...] + + | [facility] | [address] [facility] | [place] [address] | | | SERVICES, | [address] [...] 1 VIEW HISTORY: ECMO. Evaluate cannula | [facility] | | placement. COMPARISON: Yesterday FINDINGS: Endotracheal | RADIOLOGY VOICE | | tube, Windsor-Олег catheter and enteric tube remain in place. [...] cannula placement.COMPARISON: YesterdayFINDINGS: | | Endotracheal tube, Windsor-Олег catheter and enteric tube remain in place. [...] RODGERS | [address] | [place], [place] | | | JULIANN SILVA OF CARE | [facility] | [address] | | | TESTS | | | [...] MARQUAM | [address] | [place], [place] | | | JULIANN SILVA OF CARE | [address] | [address] | | | TESTS | | | [...] | + + + + + | [facility] | [address] | [place] [address] | | | ИРИНА ANTOINE | TABITHA [...] (H) | 70 - 99 mg/dL | [facility] - | | | GLUCOSE, [...] MARQUAM | [address] | [place], [place] | | | RICARDO POINT OF CARE | [address] | [address] | | | TESTS | | | [...] RODGERS | [address] | [place], [place] | | | JULIANN SILVA OF ALEXIS | [facility] | [address] | | | TESTS | | | [...] BLUAM | [address] | [place], [place] | | | JULIANN SILVA OF CARE | [facility] | [address] | | | TESTS | | | [...] (H) | 70 - 99 mg/dL | [facility] - | | | GLUCOSE, [...] MARIA | [address] | [place], [place] | | | JULIANN SILVA OF [facility] | [address] | [address] | | | TESTS | | | [...] | + + + + + | [facility] | [address] | [place] [address] | | | SERVICES, CORE | TABITHA [...] MARQUAM | [address] | [place], [place] | | | R[facility]ARDO POINT OF CARE | [address] | [address] | | | TESTS | | | [...] MARRANDIAM | [address] | [place], [place] | | | R[facility]ARDO POINT OF CARE | [address] | [address] | | | TESTS | | | [...] RODGERS | [address] | [place], [place] | | | JUL[facility]ANN S[facility] | [address] | [address] | | | TESTS | | | [...] [facility] | [address] | [place] [address] | | | SERVICES, CORE | PARK [...] RODGERS | [address] | [place], [place] | | | JULIANN SILVA [facility] | [facility] | [address] | | | TESTS | | | [...] | + + + + + | [facility] | [address] | [place] [address] | | | SERVICES, CORE | TABITHA [...] | + + + + + | [facility] | [address] | [place] [address] | | | SERVICES, CORE | TABITHA [...] | + + + + + | [facility] | [address] | [place] [address] | | | SERVICES, CORE | PARK [...] [facility] | [address] | [place] [address] | | | SERVICES, CORE | PARK [...] [facility] | [address] | [place] [address] | | | SERVICES, CORE | PARK [...] [facility] | [address] | [place] [address] | | | SERVICES, CORE | PARK [...] | | | LABORATORY | | | RWANDAN | | | SERVICES, | | | [...] + + | Performing | Address | City/State/Unm Hospitalcode | Phone Number | | Organization | | | | + + + + + | [facility] | [address] [facility] | [place] [address] | | | SERVICES, CORE | PARK [...] [facility] | [address] | [place] [address] | | | SERVICES, CORE | PARK [...] | + + + + + | [facility] | [address] | [place] [address] | | | SERVICES, CORE | TABITHA [...] | | | POC | | | JUILANN SILVA | | | | | | [...] MARQUAM | [address] | [place], [place] | | | RICARDO POINT OF CARE | [address] | [address] | | | TESTS | | | [...] | + + + + + | [facility] | [address] [facility] [address] | [place] [address] | | | SERVICES, CORE | PARK [...] MARQUAM | [address] | [place], [place] | | | JULIANN SILVA OF CARE | [address] | [address] | | | TESTS | | | [...] - BLUAM | [address] | [place], [place] | | | R[facility]ARDO POINT OF CARE | [address] | [address] | | | TESTS | | | [...] | + + + + + | [facility] | [address] | [place] [address] | | | SERVICES, CORE | TABITHA [...] (H) | 70 - 99 mg/dL | [facility] - | | | GLUCOSE, | | [...] MARIA | [address] | [place], [place] | | | JULIANN SILVA OF [facility] | [facility] | [address] | | | TESTS | | | [...] MARIA | [address] | [place], [place] | | | JULIANN SILVA OF [facility] | [facility] | [address] | | | TESTS | | | [...] (H) | 70 - 99 mg/dL | [facility] - | | | GLUCOSE, [...] RODGERS | [address] | [place], [place] | | | JULIANN SILVA OF CARE | [address] | [address] | | | TESTS | | | [...] [facility] | [address] | [place] [address] | | | SERVICES, CORE | PARK [...] | + + + + + | [facility] | [address] | [place] [address] | | | SERVICES, CORE | PARK [...] MARQUAM | [address] | [place], [place] | | | JULIANN SILVA [facility] CARE | [address] | [address] | | | TESTS | | | [...] [facility] | [address] | [place] [address] | | | ARASH, ИРИНА | TABITHA [...] (H) | 70 - 99 mg/dL | [facility] - | | | GLUCOSE, [...] MARQUAM | [address] | [place], [place] | | | JULIANN SILVA OF [place] | [facility] | [address] | | | TESTS | | | [...] RODGERS | [address] | [place], [place] | | | [facility]O PO[facility]ARE | [address] | [address] | | | TESTS | | | [...] [facility] | [address] | [place] [address] | | | SERVICES, CORE | TABITHA [...] [facility] | [address] | [place] [address] | | | ИРИНА ANTOINE | PARK [...] - MARQUAM | [address] | [place], [place] | | | R[facility]O PO[facility]ARE | [address] | [address] | | | TESTS | | | [...] (H) | 70 - 99 mg/dL | [facility] - | | | GLUCOSE, [...] + + + | [facility] | [address] | [place], [place] | | | JULIANN SILVA OF [facility] | [address] | [address] | | | TESTS | | | [...] | + + + + + | [facility] | [address] [facility] [address] | [place] [address] | | | SERVICES, CORE | PARK [...] [facility] | [address] | [place] [address] | | | SERVICES, CORE | TABITHA [...] [facility] | [address] | [place] [address] | | | SERVICES, CORE | PARK [...] [facility] | [address] | [place] [address] | | | ИРИНА ANTOINE | TABITHA [...] | | | LABORATORY | | | RWANDAN | | | SERVICES, | | | [...] | + + + + + | [facility] | [address] | [place] [address] | | | SERVICES, CORE | PARK [...] | + + + + + | [facility] | [address] | [place] [address] | | | SERVICES, CORE | TABITHA [...] [facility] | [address] | [place] [address] | | | ИРИНА ANTOINE | TABITHA [...] | + + + + + | [facility] | [address] | [place] [address] | | | SERVICES, CORE | TABITHA [...] (H) | 70 - 99 mg/dL | [facility] - | | | GLUCOSE, [...] + + + | [facility] | [address] | [place], [place] | | | JULIANN SILVA OF [facility] | [address] | [address] | | | TESTS | | | [...] MARQUAM | [address] | [place], [place] | | | JULIANN SILVA OF [place] | [facility] | [address] | | | TESTS | | | [...] | + + + + + | [facility] | [address] | [place] [address] | | | SERVICES, CORE | TABITHA [...] (H) | 70 - 99 mg/dL | [facility] - | | | GLUCOSE, [...] RODGERS | [address] | [place], [place] | | | [facility]O PO[facility]ARE | [address] | [address] | | | TESTS | | | [...] | + + + + + | [facility] | [address] | [place] [address] | | | SERVICES, ИРИНА | TABITHA [...] [facility] | [address] | [place] [address] | | | SERVICES, CORE | PARK [...] + | [facility] | [address] | [place] [address] | | | [place] | | | | + + + [...] RODGERS | [address] | [place], [place] | | | JULIANN SILVA OF CARE | [address] | [address] | | | TESTS | | | [...] MARQUAM | [address] | [place], [place] | | | HILL, POINT OF CARE | [address] | [address] | | | TESTS | | | [...] [facility] | [address] | [place] [address] | | | SERVICES, CORE | PARK [...] | + + + + + | [facility] | [address] | [place] [address] | | | SERVICES, CORE | TABITHA [...] (H) | 70 - 99 mg/dL | [facility] - | | | GLUCOSE, [...] RODGERS | [address] | [place], [place] | | | JUL[facility]ANN SILVA [facility] | [address] | [address] | | | TESTS | | | [...] MARQUAM | [address] | [place], [place] | | | JULIANN SILVA OF CARE | [address] | [address] | | | TESTS | | | [...] jefferson. Enteric tube tip in the stomach. Windsor-Олег | RECOGNITION | | catheter tip projects [...] Note | + + | Service Account, Proximiant In Interface - 03/18/2017 8:39 AM PDT EXAM: AL CHEST 1 | | VIEW HISTORY: ECMO. Evaluate cannula placement.COMPARISON: YesterdayFINDINGS: | | Endotracheal tube tip is 2.5 cm above the jefferson. Enteric tube tip in the stomach. | | Windsor-Олег catheter tip projects in the main pulmonary [...] ANA MARIA | [address] | [place], [place] | | | JULIANN SILVA OF CARE | [facility] | [address] | | | TESTS | | | [...] (H) | 60 - 99 mg/dL | [facility] - | | | GLUCOSE, [...] RODGERS | [address] | [place], [place] | | | RICARDO POINT OF CARE | [facility] | [address] | | | TESTS | | | [...] | + + + + + | [facility] | [address] | [place] [address] | | | SERVICES, CORE | TABITHA [...] MARQUAM | [address] | [place], [place] | | | RICARDO POINT OF CARE | [address] | [address] | | | TESTS | | | [...] BLUAM | [address] | [place], [place] | | | JULIANN SILVA OF CARE | [address] | [address] | | | TESTS | | | [...] | + + + + + | [facility] | [address] | [place] [address] | | | SERVICES, | [address] [...] [facility] | [address] | [place] [address] | | | SERVICES, | [address] [...] + + + + | PRODUCT | [id number] | | [facility] | | | UNIT [...] + + + + | EXPIRATION | [id number] | | [facility] | | | DATE [...] + + + + | BLOOD | [id number] | | [facility] | | | PRODUCT [...] | + + + + + | [facility] | [address] | [place] [address] | | | ARASH | [address] [...] (A) | 5 - 10 Minutes | [facility] - | | | CITRATED | | | [facility] | | | | | | JULIANN SILVA | | | | | | OF CARE | | | | | | TESTS | | + + + + + + | K - | 3.1 (A) | 1 - 3 Minutes | [facility] - | | | CITRATED [...] RODGERS | [address] | [place], [place] | | | JULIANN SILVA OF [place] | [address] | [address] | | | TESTS | | | [...] [facility] | [address] | [place] [address] | | | SERVICES, CORE | PARK [...] [facility] | [address] | [place] [address] | | | SERVICES, CORE | PARK [...] [facility] | [address] | [place] [address] | | | SERVICES, CORE | PARK [...] [facility] | [address] | [place] [address] | | | SERVICES, CORE | PARK [...] | | | LABORATORY | | | RWANDAN | | | SERVICES, | | | [...] the MDRD equation recommended by the | [facility] | | National Kidney Disease [...] | + + + + + | [facility] | [address] | [place] [address] | | | SERVICES, CORE | TABITHA [...] | + + + + + | [facility] | [address] | [place] [address] | | | SERVICES, CORE | [address] | | | + + + + + MAGNESIUM, PLASMA (03/18/2017 1:19 AM PDT) + +-------+ + + + | Component | Value | Ref Range | Performed | Pathologist | | | | | At | Signature | + +-------+ + + + | MAGNESIUM,P | 2.3 | 1.8 - 2.5 mg/dL | [facility] | | | DENISEMA | | | [...] | + + + + + | [facility] | [address] | [place] [address] | | | ARASH, ИРИНА | PARK [...] [facility] | [address] | [place] [address] | | | ARASH, ИРИНА | TABITHA [...] (H) | 60 - 99 mg/dL | [facility] - | | | GLUCOSE, [...] MARIA | [address] | [place], [place] | | | JULIANN SILVA OF [place] | [address] | [address] | | | TESTS | | | [...] | + + + + + | [facility] | [address] | [place] [address] | | | SERVICES, ИРИНА | TABITHA [...] [facility] | [address] | [place] [address] | | | SERVICES, ИРИНА | TABITHA [...] (H) | 60 - 99 mg/dL | [facility] - | | | GLUCOSE, [...] MARQUAM | [address] | [place], [place] | | | JULIANN SILVA OF [place]LEXIS | [facility] | [address] | | | TESTS | | | [...] RODGERS | [address] | [place], [place] | | | RICARDO POINT OF CARE | [address] | [address] | | | TESTS | | | [...] MARIA | [address] | [place], [place] | | | JULIANN SILVA OF [facility] | [address] | [address] | | | TESTS | | | [...] (H) | 60 - 99 mg/dL | [facility] - | | | GLUCOSE, [...] MARIA | [address] | [place], [place] | | | JULIANN SILVA OF [facility] [facility] | [facility] | [address] | | | TESTS | | | [...] | + + + + + | [facility] | [address] | [place] [address] | | | SERVICES, CORE | TABITHA [...] [facility] | [address] | [place], [place] | | | JULIANN SILVA OF CARE | [address] | [address] | | | TESTS | | | [...] [facility] | [address] | [place] [address] | | | SERVICES, CORE | PARK [...] [facility] | [address] | [place] [address] | | | ИРИНА ANTOINE | TABITHA [...] [facility] | [address] | [place] [address] | | | SERVICES, CORE | TABITHA [...] | + + + + + | [facility] | [address] | [place] [address] | | | ИРИНА ANTOINE | TABITHA [...] [facility] | [address] | [place] [address] | | | SERVICES, CORE | TABITHA [...] + | [facility] | [address] | [place], [place] | | | RICARDO POINT OF CARE | [address] | [address] | | | TESTS | | | [...] + + + | [facility] | [address] | [place], [place] | | | JULIANN SILVA OF CARE | [address] | [address] | | | TESTS | | | [...] [facility] | [address] | [place] [address] | | | SERVICES, CORE | PARK [...] [facility] | [address] | [place], [place] | | | JULIANN SILVA OF CARE | [address] | [address] | | | TESTS | | | [...] (H) | 60 - 99 mg/dL | [facility] - | | | GLUCOSE, [...] [facility] | [address] | [place], [place] | | | JULIANN SILVA OF ALEXIS | [address] | [address] | | | TESTS | | | [...] + + + + | PRODUCT | [id number] | | [facility] | | | UNIT [...] + + + + | EXPIRATION | [id number] | | [facility] | | | DATE [...] + + + + | BLOOD | [id number] | | [facility] | | | PRODUCT [...] | + + + + + | [facility] | [address] | [place] [address] | | | SERVICES, | [address] [...] + + + + | PRODUCT | [id number] | | [facility] | | | UNIT [...] + + + + | EXPIRATION | [id number] | | [facility] | | | DATE [...] + + + + | BLOOD | [id number] | | [facility] | | | PRODUCT [...] [facility] | [address] | [place] [address] | | | SERVICES, | [address] [...] [facility] | [address] | [place], [place] | | | RICARDO POINT OF CARE | [facility] | [address] | | | TESTS | | | [...] [facility] | [address] | [place] [address] | | | SERVICES, ИРИНА | TABITHA [...] | + + + + + | [facility] | [address] | [place] [address] | | | SERVICES, CORE | PARK [...] + + | [facility] | [address] [facility] | [place] [address] | | | SERVICES, CORE | TABITHA [...] [facility] | [address] | [place] [address] | | | SERVICES, CORE | TABITHA [...] | | | LABORATORY | | | RWANDAN | | | SERVICES, | | | [...] 11 | 4 - 11 mmol/L | [facility] | | | GAP(ALB | [...] | + + + + + | [facility] | [address] [facility] | [place] [address] | | | ИРИНА ANTOINE | TABITHA [...] [facility] | [address] | [place] [address] | | | ИРИНА ANTOINE | PARK [...] | + + + + + | [facility] | [address] | [place] [address] | | | SERVICES, ИРИНА | TABITHA [...] [facility] | [address] | [place] [address] | | | SERVICES, CORE | TABITHA [...] [facility] | [address] | [place], [place] | | | RICARDO POINT OF [facility] | [address] | [address] | | | TESTS | | | [...] | + + + + + | [facility] | [address] | [place] [address] | | | SERVICES, ИРИНА | TABITHA [...] [facility] | [address] | [place] | | | JULIANN SILVA OF [facility] | [address] | [address] | | | TESTS | | | | + + + + + [facility] DUPLEX LOWER EXTREMITY RT (03/17/2017 12:31 [...] Note | + + | Service Account, Proximiant In Interface - 03/17/2017 6:18 PM PDT [...] + + | Performing | Address | City/State/Unm Hospitalcode | Phone Number | | Organization [...] Note | + + | Service Account, Proximiant In Interface - 03/17/2017 6:17 PM PDT [...] [facility] | [address] | [place], [place] | | | JULIANN SILVA OF [facility] | [facility] | [address] | | | TESTS | | | [...] [facility] | [address] | [place] [address] | | | SERVICES, CORE | PARK [...] Performed At | + + -------+ | [facility] | [facility] | | [facility] | CARDIOLOG Y | | Laboratory [address] [place] [address], | | | [place] [address] Pt Name: | | | RON MCKEON Study Date/Time 03/17/2017 / 10:30:26 | | | AMMRN: [id number] Most recent | | | prior: 03/15/2017Acc #: [id number] No. | | | previous echos: 1DOB: 1955 61 years Heart | | | Rate: 139 bpmHeight: 69.0 | | | in Blood Pressure: 133/83 | | | mm/HgWeight: 258.0 | | | lb Gender: | | | MBSA: 2.30 m2 Order | | | ID: [id number] Site Project Manager: Mauri Domingo LORENZO | | | Referring [...] | | pre-diabetes who is transferred to [facility] with cardiogenic shock in the [...] | | | Report electronically signed by: [id number] Jen Ovalle MD, PhD | | | (03/17/2017, 1:53:40 PM) Final | | | | | |Report electronically signed by: [id number] Jen Ovalle MD, PhD (03/17/2017, | | |1:53:40 PM) | | | | | | | | | | | | Final | | + + -------+ + + | Procedure Note | + + | Interface, Cardiology Results - 03/17/2017 1:53 PM [facility] | | [facility] Echocardiography Laboratory [address] [place] [address] | | [place], [place] [address] Pt Name: RON Chaudhary | | MIKE Study Date/Time 03/17/2017 / 10:30:26 AMMRN: [id number] Most | | recent prior: 03/15/2017Acc #: [id number] No. previous echos: 1DOB: | | 1955 61 years Heart Rate: 139 bpmHeight: 69.0 in Blood | | Pressure: 133/83 mm/HgWeight: 258.0 lb Gender: MBSA: | | 2.30 m2 Order ID: [id number] Site Project Manager: Mauri Domingo | | RDCSReferring Provider: Mellisa HajiPatient Location: 12KModalities Performed: | | Limited 2D, Color Doppler and Spectral Doppler Limited.Study Quality: Fair.Exam | | Indication: Heart failure; ECMO; s/p STEMIHistory: 61 year old male with a past medical | | history significant for hypertension, hyperlipidemia, ongoing tobacco use and | | pre-diabetes who is transferred to [facility] with cardiogenic shock in the [...] | | Scoring: Report electronically signed by: [id number] Jen Ovalle MD, PhD (03/17/2017, | | [...] | | | |Report electronically signed by: [id number] Jen Ovalle MD, PhD (03/17/2017, | |1:53:40 PM) | | | | | | | | Final | + + + + + + + | Performing | Address | City/State/Zipcode | Phone Number | | Organization | | | | + + + + + | [facility] | [address] | [place], [place] | | | CARDIOLOGY | [address] | [address] | | + + + + + [...] [facility] | [address] | [place], [place] | | | JULIANN SILVA OF CARE | [address] | [address] | | | TESTS | | | [...] - [facility] | [address] | [place], [place] | | | RICARDO POINT OF CARE | [facility] | [address] | | | TESTS | | | [...] + + | [facility] | [address] [facility] | [place] [address] | | | SERVICES, CORE | PARK [...] | + + + + + | [facility] | [address] | [place] [address] | | | SERVICES, CORE | TABITHA [...] [facility] | [address] | [place] [address] | | | SERVICES, CORE | TABITHA [...] [facility] | [address] | [place], [place] | | | JULIANN SILVA OF CARE | [address] | [address] | | | TESTS | | | [...] [facility] | [address] | [place], [place] | | | RICARDO POINT OF CARE | [address] | [address] | | | TESTS | | | [...] [facility] | [address] | [place], [place] | | | JULIANN SILVA OF CARE | [address] | [address] | | | TESTS | | | [...] [facility] | [address] | [place] [address] | | | SERVICES, CORE | PARK [...] | + + + + + | [facility] | [address] | [place] [address] | | | SERVICES, CORE | PARK [...] Note | + + | Service Account, Proximiant In Interface - 03/17/2017 9:44 AM PDT [...] - [facility] | [address] | [place], [place] | | | R[facility]ARDO POINT OF [facility] | [facility] | [address] | | | TESTS | | | [...] [facility] | [address] | [place] [address] | | | SERVICES, CORE | PARK [...] | | | LABORATORY | | | RWANDAN | | | SERVICES, | | | [...] + + | [facility] | [address] [facility] | [place] [address] | | | [facility] | [address] | | | + [...] | + + + + + | [facility] | [address] | [place] [address] | | | SERVICES, CORE | TABITHA [...] (H) | 60 - 99 mg/dL | [facility] - | | | GLUCOSE, | | [...] [facility] | [address] | [place], [place] | | | JULIANN SILVA OF CARE | [address] | [address] | | | TESTS | | | [...] | + + + + + | [facility] | [address] | [place] [address] | | | SERVICES, CORE | PARK [...] | 56 (L) | >300 mmHg | [facility] | | | RATIO | | | [...] | + + + + + | [facility] | [address] | [place] [address] | | | SERVICES, CORE | TABITHA [...] | + + + + + | [facility] | [address] [facility] | [place] [address] | | | ИРИНА ANTOINE | TABITHA [...] | + + + + + | [facility] | [address] | [place] [address] | | | SERVICES, CORE | TABITHA [...] [facility] | [address] | [place] [address] | | | SERVICES, CORE | PARK [...] [facility] | [address] | [place] [address] | | | SERVICES, ИРИНА | PARK [...] | + + + + + | [facility] | [address] | [place] [address] | | | SERVICES, CORE | TABITHA [...] | + + + + + | [facility] | [address] [facility] | [place] [address] | | | SERVICES, ИРИНА | TABITHA [...] | + + + + + | [facility] | [address] | [place] [address] | | | ARASH, CORE | PARK [...] | + + + + + | [facility] | [address] | [place] [address] | | | SERVICES, CORE | TABITHA [...] + | [facility] | [address] [facility] | [place], [place] | | | CARDIOLOGY | [address] | [address] | | + + + + + WK-FL-EXZ-HB,POC RT (03/17/2017 12:44 AM PDT) + + [...] [facility] | [address] | [place], [place] | | | JULIANN SILVA OF CARE | [address] | [address] | | | TESTS | | | [...] [facility]IA | [address] | [place], [place] | | | JULIANN [facility] | [address] | [address] | | | TESTS | | | [...] [facility] | [address] | [place], [place] | | | RICARDO POINT OF CARE | [address] | [address] | | | TESTS | | | [...] [facility] | [address] | [place] [address] | | | SERVICES, CORE | PARK [...] [facility] | [address] | [place], [place] | | | RICARDO POINT OF CARE | [address] | [address] | | | TESTS | | | [...] [facility] | [address] | [place], [place] | | | JULIANN SILVA OF CARE | [address] | [address] | | | TESTS | | | [...] | + + + + + | [facility] | [address] | [place] [address] | | | ИРИНА ANTOINE | TABITHA [...] [facility] | [address] | [place], [place] | | | [facility]ARE | [facility] | [address] | | | TESTS | | | [...] | + + + + + | [facility] | [address] | [place] [address] | | | SERVICES, CORE | TABITHA [...] (H) | 60 - 99 mg/dL | [facility] - | | | GLUCOSE, [...] + + + | [facility] | [address] | [place], [place] | | | RICARDO POINT OF CARE | [address] | [address] | | | TESTS | | | [...] [facility] | [address] | [place], [place] | | | RICARDO POINT OF CARE | [facility] | [address] | | | TESTS | | | [...] | pause verifies correct patient, procedure, equipment, rn support services | | | and site/side marked as [...] | + + + + + | [facility] | [address] | [place] [address] | | | SERVICES, CORE | TABITHA [...] [facility] | [address] | [place] [address] | | | SERVICES, CORE | TABITHA [...] | + + + + + | [facility] | [address] [facility] | [place] [address] | | | SERVICES, CORE | PARK [...] [facility] | [address] | [place] [address] | | | SERVICES, CORE | PARK [...] | | | LABORATORY | | | RWANDAN | | | SERVICES, | | | [...] | + + + + + | [facility] | [address] | [place] [address] | | | ИРИНА ANTOINE | TABITHA [...] [facility] | [address] | [place] [address] | | | SERVICES, CORE | PARK [...] [facility] | [address] | [place] [address] | | | SERVICES, CORE | TABITHA [...] [facility] | [address] | [place], [place] | | | JULIANN SILVA OF CARE | [address] | [address] | | | TESTS | | | [...] - [facility] | [address] | [place], [place] | | | RICARDO POINT OF CARE | [address] | [address] | | | TESTS | | | [...] + + + | [facility] | [address] | [place], [place] | | | RICARDO POINT OF CARE | [address] | [address] | | | TESTS | | | [...] [facility] | [address] | [place], [place] | | | RICARDO POINT OF CARE | [address] | [address] | | | TESTS | | | [...] [facility] | [address] | [place] [address] | | | ИРИНА ANTOINE | TABITHA [...] | | | LABORATORY | | | RWANDAN | | | SERVICES, | | | [...] | + + + + + | [facility] | [address] | [place] [address] | | | SERVICES, CORE | TABITHA [...] [facility] | [address] | [place], [place] | | | RICARDO POINT OF CARE | [address] | [address] | | | TESTS | | | [...] [facility] | [address] | [place] [address] | | | ИРИНА ANTOINE | TABITHA [...] [facility] | [address] | [place], [place] | | | JULIANN SILVA OF [facility] | [address] | [address] | | | TESTS | | | | + + + + + OPERATION RECORD (03/16/2017 9:30 AM PDT) + + | Procedure Note | + + | Dale Mak MD - 03/15/2017 3:42 PM PDT Date of Service: 03/15/2017 Attending | | Surgeon:Ron Powell MD. Claims Specialist(s):Dale Mak MD. | | Preoperative Diagnoses: 1.Cardiogenic [...] The | | patient was transferred to [facility] for further management. At [facility], the patient continued | | [...] cannulation with micropuncture | | wire. A 7-Guyanese sheath was placed in an antegrade direction down the SFA for distal | | perfusion. A 19-Guyanese arterial cannula was placed in a retrograde [...] 03/15/2017 15:23:00DT: 03/15/2017 15:42:27Job #: | | [id number] | | | |A 19-Guyanese arterial cannula was placed in a retrograde [...] |HS/MODL | | | | | | /[id number] | + + CBC (HEMOGRAM) ONLY (03/16/2017 [...] + + | [facility] | [address] [facility] | [place] [address] | | | ARASH, ИРИНА | TABITH[address] [...] | + + + + + | [facility] | [address] | [place] [address] | | | SERVICES, CORE | TABITHA [...] | + + + + + | [facility] | [address] | [place] [address] | | | SERVICES, CORE | PARK [...] - [facility] | [address] | [place], [place] | | | JULIANN SILVA OF CARE | [facility] | [address] | | | TESTS | | | [...] (H) | 60 - 99 mg/dL | [facility] - | | | GLUCOSE, [...] [facility] | [address] | [place], [place] | | | RICARDO POINT OF CARE | [address] | [address] | | | TESTS | | | [...] [facility] | [address] | [place], [place] | | | JULIANN SILVA OF [facility] | [facility] | [address] | | | TESTS | | | [...] Endotracheal | RADIOLOGY VOICE | | tube, Windsor-Олег catheter and enteric tube remain in place. [...] Note | + + | Service Account, Proximiant In Interface - 03/16/2017 8:27 AM PDT EXAM: AL CHEST 1 | | VIEW HISTORY: Evaluate cannula placement. heart failure.COMPARISON: YesterdayFINDINGS: | | Endotracheal tube, Windsor-Олег catheter and enteric tube remain in place. [...] [facility] | [address] | [place], [place] | | | JULIANN SILVA OF CARE | [address] | [address] | | | TESTS | | | [...] [facility] | [address] | [place], [place] | | | JULIANN SILVA [facility] | [facility] | [address] | | | TESTS | | | | + + + + + EZ-OO-URU-HBPOC RT (03/16/2017 3:42 AM PDT) + + [...] [facility] | [address] | [place], [place] | | | RICARDO POINT OF CARE | [address] | [address] | | | TESTS | | | [...] MARIA | [address] | [place], [place] | | | JULIANN S[facility]VA [facility] | [address] | [address] | | | TESTS | | | [...] | + + + + + | [facility] | [address] | [place] [address] | | | SERVICES, CORE | TABITHA [...] [facility] | [address] | [place], [place] | | | R[facility]ARDO POINT OF [facility] | [address] | [address] | | | TESTS | | | [...] [facility] | [address] | [place] [address] | | | ИРИНА ANTOINE | TABITHA [...] | + + + + + | [facility] | [address] [facility] | [place] [address] | | | SERVICES, CORE | PARK [...] | | | LABORATORY | | | RWANDAN | | | SERVICES, | | | [...] [facility] | [address] | [place] [address] | | | SERVICES, CORE | PARK [...] [facility] | [address] | [place] [address] | | | SERVICES, CORE | TABITHA [...] | + + + + + | [facility] | [address] | [place] [address] | | | SERVICES, CORE | TABITHA [...] | + + + + + | [facility] | [address] | [place] [address] | | | SERVICES, CORE | [address] | | | + + + + + MAGNESIUM, PLASMA (03/16/2017 3:35 AM PDT) + +-------+ + + + | Component | Value | Ref Range | Performed | Pathologist | | | | | At | Signature | + +-------+ + + + | MAGNESIUM,P | 2.1 | 1.8 - 2.5 mg/dL | [facility] | | | LASMA | | | [...] | + + + + + | [facility] | [address] | [place] [address] | | | SERVICES, CORE | TABITHA [...] MARIA | [address] | [place], [place] | | | JULIANN S[facility]VA [facility] | [address] | [address] | | | TESTS | | | [...] | + + + + + | [facility] | [address] | [place] [address] | | | ARASH, ИРИНА | [address] [...] (H) | 60 - 99 mg/dL | [facility] - | | | GLUCOSE, [...] MARIA | [address] | [place], [place] | | | JULIANN SILVA OF CARE | [address] | [address] | | | TESTS | | | [...] | + + + + + | [facility] | [address] [facility] | [place] [address] | | | SERVICES, CORE | TABITHA [...] | | | LABORATORY | | | RWANDAN | | | SERVICES, | | | [...] | + + + + + | [facility] | [address] | [place] [address] | | | ARASH, CORE | [address] | | | + + + + + CI-PK-IYF-HB,POC RT (03/16/2017 12:22 AM PDT) + + [...] [facility] | [address] | [place], [place] | | | RICARDO POINT OF CARE | [address] | [address] | | | TESTS | | | [...] [facility] | [address] | [place], [place] | | | JULIANN SILVA OF CARE | [address] | [address] | | | TESTS | | | [...] [facility] | [address] | [place], [place] | | | JULIANN SILVA OF CARE | [address] | [address] | | | TESTS | | | [...] [facility] | [address] | [place], [place] | | | RICARDO POINT OF CARE | [address] | [address] | | | TESTS | | | [...] Note | + + | Service Account, Proximiant In Interface - 03/16/2017 8:27 AM PDT [...] [facility] | [address] | [place], [place] | | | JULIANN SILVA OF CARE | [facility] | [address] | | | TESTS | | | [...] (H) | 60 - 99 mg/dL | [facility] - | | | GLUCOSE, [...] MARIA | [address] | [place], [place] | | | JULIANN SILVA OF [facility] | [address] | [address] | | | TESTS | | | [...] [facility] | [address] | [place] [address] | | | SERVICES, CORE | PARK [...] | + + + + + | [facility] | [address] | [place] [address] | | | SERVICES, CORE | TABITHA [...] | + + + + + | [facility] | [address] | [place] [address] | | | SERVICES, ИРИНА | TABITHA [...] | Ambubag and suction available at bedside. [facility] Mac 4 used to | | | visualize airway, Grade III view with old blood and new blood | | | present in laryngopharynx plus edema. A [employer] | | | catheter was [...] [facility] | [address] | [place], [place] | | | JULIANN SILVA OF CARE | [address] | [address] | | | TESTS | | | | + + + + + WM-AF-PWP-HB,POC RT (03/15/2017 7:39 PM PDT) + + [...] [facility] | [address] | [place], [place] | | | JULIANN S[facility]VA [facility] | [address] | [address] | | | TESTS | | | [...] [facility] | [address] | [place], [place] | | | RICARDO POINT OF CARE | [address] | [address] | | | TESTS | | | [...] [facility] | [address] | [place], [place] | | | [facility]O [facility] | [facility] | [address] | | | TESTS | | | [...] given by: Power of | | | research attorney Patient identity confirmed per policy: Yes Team Pause: | | | Immediatly prior to the procedure a pause per protocol was called. A | | | pause verifies correct patient, procedure, equipment, rn support services | | | and site/side marked as [...] modified Seldinger technique (a | | | fapcdgva-huft-zsb-vmnauq-yqqs-irze-dkcekuy-xnm-xaxnszgi) was used for | | | vessel [...] Name: Ron Mckeon MRN: | | | [id number] 03/15/2017 Time: 5:26 PM Diagnosis: shock At [...] Ramon Alvarado | | | MD [place], [facility] Emergency Medicine Personal Pager: [phone] | | | | | + + + LACTATE (03/15/2017 4:49 PM PDT) + + + + + + | Component | Value | Ref Range | Performed | Pathologist | | | | | At | Signature | + + + + + + | LACTATE | 7.5 () | mmol/L | [facility] | | | | | [...] | + + + + + | [facility] | [address] | [place] [address] | | | SERVICES, CORE | TABITHA [...] (H) | 60 - 99 mg/dL | [facility] - | | | GLUCOSE, [...] RODGERS | [address] | [place], [place] | | | [facility] | [address] | [address] | | | TESTS | | | [...] RODGERS | [address] | [place], [place] | | | JULIANN SIL[facility] CARE | [address] | [address] | | | TESTS | | | [...] Note | + + | Service Account, [employer] In Interface - 03/15/2017 6:18 PM PDT [...] R[place]GERS | [address] | [place], [place] | | | JULIANN SIL[facility] CARE | [address] | [address] | | | TESTS | | | [...] [place] | [address] | [place], [place] | | | [facility] | [address] | [address] | | | TESTS | | | [...] BLUAM | [address] | [place], [place] | | | JULIANN SILVA OF [facility] | [address] | [address] | | | TESTS | | | [...] | + + + + + | [facility] | [address] | [place] [address] | | | SERVICES, CORE | TABITHA [...] | + + + + + | [facility] | [address] | [place] [address] | | | ARASH, ИРИНА | TABITHA [...] | + + + + + | [facility] | [address] | [place] [address] | | | SERVICES, CORE | PARK [...] | + + + + + | [facility] | [address] [facility] | [place] [address] | | | SERVICES, CORE | TABITHA [...] | | | LABORATORY | | | RWANDAN | | | SERVICES, | | | [...] | + + + + + | [facility] | [address] | [place] [address] | | | SERVICES, CORE | TABITHA [...] signed by: Dale Mak, | | | eY, Ph.D. Professor and Chief Division of Cardiothoracic Surgery | | | [facility] - Mail Code L353 [address] [facility] | | | [place] [address] | | + + + [...] Note | + + | Service Account, [employer] In Interface - 03/15/2017 2:46 PM PDT [...] + + + + | PRODUCT | [id number] | | [facility] | | | UNIT [...] + + + + | EXPIRATION | [id number] | | [facility] | | | DATE [...] + + + + | BLOOD | [id number] | | [facility] | | | PRODUCT [...] [facility] | [address] | [place] [address] | | | SERVICES, | [address] [...] + + + + | PRODUCT | [id number] | | [facility] | | | UNIT [...] + + + + | EXPIRATION | [id number] | | [facility] | | | DATE [...] + + + + | BLOOD | [id number] | | [facility] | | | PRODUCT [...] [facility] | [address] | [place] [address] | | | SERVICES, | [address] [...] + + + + | PRODUCT | [id number] | | [facility] | | | UNIT [...] + + + + | EXPIRATION | [id number] | | [facility] | | | DATE [...] + + + + | BLOOD | [id number] | | [facility] | | | PRODUCT [...] [facility] | [address] | [place] [address] | | | SERVICES, | [address] [...] + + + + | PRODUCT | [id number] | | [facility] | | | UNIT [...] + + + + | EXPIRATION | [id number] | | [facility] | | | DATE [...] + + + + | BLOOD | [id number] | | [facility] | | | PRODUCT [...] | + + + + + | [facility] | [address] | [place] [address] | | | ARASH, | TABITHA ALICEA | | | | TRANSFUSION MEDICINE | | | | + + + + + YW-IY-DUR-HB,POC RT (03/15/2017 1:23 PM PDT) + + + + + + | Component | Value | Ref Range | Performed | Pathologist | | | | | At | Signature | + + + + + + | HCO3 | 19.6 (L) | 21 - 28 mmol/L | [facility] - | | | ARTERIAL, | | [...] BLUAM | [address] | [place], [place] | | | JULIANN SILVA OF CARE | [facility] | [address] | | | TESTS | | | [...] MARIA | [address] | [place], [place] | | | RICARDO POINT OF CARE | [address] | [address] | | | TESTS | | | [...] | + + + | [facility] | [facility] | | [facility] | CARDIOLOGY | | Laboratory [address] [place] [address] | | | [place] [address] Pt Name: | | | RON Neena MCKEON Study Date/Time 03/15/2017 / 12:54:21 | | | PMMRN: [id number] Most recent | | | prior: -Acc #: [id number] No. previous | | | echos: 0DOB: 1955 61 years Heart Rate: | | | 145 bpmHeight: Blood | | | Pressure: 90/67 mm/HgWeight: 249.0 | | | lb Gender: | | | MBSA: 2.34 m2 Order | | | ID: [id number] Site Project Manager: Vahid Parmar [facility] | | | Referring Provider: Gaurav [...] Report electronically signed by: | | | [id number] Yajaira Johnson MD (03/15/2017, 3:38:52 PM) Final | | | | | | | | | | | | Final | | + + + + + | Procedure Note | + + | Interface, Cardiology Results - 03/15/2017 3:38 PM [facility] | | [facility] Echocardiography Laboratory [address] [place] [address] | | [place], [place] [address] Pt Name: RON Chaudhary | | MIKE Study Date/Time 03/15/2017 / 12:54:21 PMMRN: [id number] Most | | recent prior: -Acc #: [id number] No. previous echos: 0DOB: 1955 61 | | years Heart Rate: 145 bpmHeight: Blood Pressure: 90/67 | | mm/HgWeight: 249.0 lb Gender: MBSA: 2.34 m2 | | Order ID: [id number] Site Project Manager[facility]id [facility] | | Gaurav Castellanos Location: [...] values Report electronically signed by: | | [id number] Yajaira Johnson MD (03/15/2017, 3:38:52 PM) Final [...] | | | |Report electronically signed by: [id number] Yajaira Johnson MD (03/15/2017, 3:38:52 PM) | | | | | | | | Final | + + + + + + + | Performing | Address | City/State/Unm Hospitalcode | Phone Number | | Organization | | | | + + + + + | [facility] | [address] | [place], [place] | | | CARDIOLOGY | [address] | [address] | | + + + + + [...] Note | + + | Service Account, RadiFlirq Res In Interface - 03/15/2017 1:10 PM [...] DEPT OF | [address] | [place], [place] | | | CARDIOLOGY | [address] | [address] | | + + + + + [...] [facility] | [address] | [place] [address] | | | SERVICES, | [address] [...] [facility] | [address] | [place] [address] | | | SERVICES, | [address] [...] [facility] | [address] | [place] [address] | | | ARASH, ИРИНА | [address] [...] [facility] | [address] | [place] [address] | | | SERVICES, ИРИНА | TABITHA [...] [facility] | [address] | [place] [address] | | | SERVICES, | [address] [...] [facility] | [address] | [place] [address] | | | SERVICES, CORE | PARK [...] | + + + + + | [facility] | [address] [facility] | [place] [address] | | | SERVICES, CORE | TABITHA [...] | + + + + + | [facility] | [address] | [place] [address] | | | SERVICES, CORE | TABITHA [...] | | | LABORATORY | | | RWANDAN | | | SERVICES, | | | [...] | + + + + + | [facility] | [address] | [place] [address] | | | SERVICES, CORE | [address] | | | + + + + + DK-VI-LJF-DWAINEPOC RT (03/15/2017 12:16 PM PDT) + + [...] [facility] | [address] | [place], [place] | | | RICARDO [facility] | [address] | [address] | | | TESTS | | | [...] of unspecified type of vessel, | | ewiiaapaayp or graft | + + | Tongue [...] 5:37 | | | | | dose, [place] 03/29/17 at 0530 | | AM PDT [...] | | | | ONCE, 1 dose, [facility] 03/19/17 at 1415 | | PM PDT [...] | | | | ONCE, 1 dose, [facility] 03/20/17 at | | AM PDT | [...] 10:04 | | | | | dose, [place] 03/22/17 at 1000 | | AM PDT [...] | | | | First dose on [facility] 03/19/17 at | | AM PDT | [...] 4:45 | | | | | dose, [facility] 03/19/17 at 1630 | | PM PDT | | | | + +-------+ +-------+---+---+ +---+---+ | | | +---+---+ + +-------+ +-------+---+---+ | furosemide (LASIX) injection 20 | Given | 03/20/20 | 20 mg | | | | mg 20 mg, intravenous, ONCE, 3:07 | | | | | dose, [facility] 03/20/17 at 0400 | | AM PDT [...] | | | | | | Starting [facility] 03/19/17 at 1900, | | | | [...] PDT | | | | | Until [facility] 04/02/17 at 2030, | | | | [...] | | | | ONCE, 1 dose, [place] 03/15/17 at 1815 | | PM PDT [...] | | | | | | Until [facility] 04/02/17 at 2030, severe | | | [...] | | | | | 1 dose, [facility] 03/18/17 at 0130 | | AM [...]
--- OUTSIDE RECORDS SUMMARY | ~2019-01-22 | XMS | Encounter Summary ---
Demographics + + + | Address | [address] | | | [place] [address] | + + + | Home Phone [...] | [place] | | | | | [address] | | + + + + + Care Team Providers + +------+ + | Care Tank Builder Supervisor Name | Role | Phone | [...] | | | involving | [address] | | | | | [place] | MARK[place] MCGUIRE | [place] Herrera | | | | | coronary | [address] | [address] | | | | | artery of | Phone: | Phone: | | | | | [place] heart | [phone] | [phone] | | | | | without | Fax: | Fax: | | | | | angina | [phone] | [phone] | | | | | pectoris | | | + + + + + + + Encounter Details +--------+---------+ + + + | Date | Type | Department | Care Team | Description | +--------+---------+ + + + | 10/28/ | Office | [facility] | Randy Figueroa, | Coronary artery | | 2019 | Visit | MED CTR CARDIAC | MD [address] | disease, angina | | | | REHABILITATION [address] [place], | presence | | | | [address] [place] | [place] [address] | unspecified, | | | | [place] [address] | [phone] | unspecified vessel | | | | [phone] | | or lesion type, | | | | | | unspecified whether | | | | | | [place] or | | | | | | [...] Esther Fields RN - 10/28/2018 1000 PST [facility] CARDIAC REHABILITATION [address] [facility] [address] Cardiac Rehab Date: 10/28/2018 Patient Information Patient Name: Bob Will Date of : 1955 Age: 62 y.o. Encounter Diagnoses Code Name Primary? I25.10 Coronary artery disease, angina presence unspecified, unspecified vessel or lesi on type, unspecified whether [place] or transplanted heart Yes Z98.61 Post PTCA [...] | | | | | | [place], | | | | | | [place] [address] | | | | | | [phone] | | | | | | | | +--------+ + + + + documented as of this encounter Visit Diagnoses + + | Diagnosis | + + | Coronary artery disease, angina presence unspecified, unspecified vessel or lesion | | type, unspecified whether [place] or transplanted heart - Primary | + + | Post PTCA Postsurgical percutaneous transluminal coronary angioplasty status | + + documented in this encounter"
--- OUTSIDE RECORDS SUMMARY | ~2019-01-22 | XMS | Encounter Summary ---
Demographics + + + | Address | [address] | | | [place] [address] | + + + | Home Phone [...] [place] | | | | | [address] | | + + + + + Care Team Providers + +------+ + | Care Human Resources Associate Name | Role | Phone | [...] | 12/06/ | Refill | [facility] [place] | Jenny, | Medication Refill | | 2018 | | CARDIOLOGY [address] | ADARSH Santo [address] | | | | | [place], | [place], | | | | | [place] [address] | [place] [address] | | | | | [phone] | [phone] | | | | | | | [...] | | | | | | [place] [address] | | | | | | [phone] | | | | | | | | +--------+ + + + + documented as of this encounter Visit Diagnoses Not on filedocumented in this encounter"
--- OUTSIDE RECORDS SUMMARY | ~2019-01-22 | XMS | Encounter Summary ---
Demographics + + + | Address | [address] | | | [place] [address] | + + + | Home Phone [...] | [place] | | | | | [address] | | + + + + + Care Team Providers + +------+ + | Care Office Technology Instructor Name | Role | Phone | [...] | | | involving | [address] | [place] | | | | | [place] | MARKO MCGUIRE | MARK[place] Herrera | | | | | coronary | [address] | [address] | | | | | artery of | Phone: | Phone: | | | | | [place] heart | [phone] | [phone] | | | | | without | Fax: | Fax: | | | | | angina | [phone] | [phone] | | | | | pectoris | | | + + + + + + + Encounter Details +--------+---------+ + + + | Date | Type | Department | Care Team | Description | +--------+---------+ + + + | 12/07/ | Office | [facility] | Randy Figueroa, | Coronary artery | | 2019 | Visit | MED CTR CARDIAC | MD [address] | disease involving | | | | REHABILITATION [address] | [address] [place], | [place] coronary | | | | [place] | [place] [address] | artery of [place] | | | | [place] [address] | [phone] | heart without angina | | | | [phone] | | pectoris (Primary | | | [...] [facility] CARDIAC REHABILITATION [address] [facility] [address] Cardiac Rehab Date: 12/07/2018 Patient Information Patient Name: Bob Will Date of : 1955 Age: 63 y.o. Encounter Diagnoses Code Name Primary? I25.10 Coronary artery disease involving [place] coronary artery of [place] heart without angina pectoris Yes Z98.61 Post [...] W | | | | | | [place], | | | | | | [place] [address] | | | | | | [phone] | | | | | | | | +--------+ + + + + documented as of this encounter Visit Diagnoses + + | Diagnosis | + + | Coronary artery disease involving [place] coronary artery of [place] heart without | | angina pectoris - Primary | + + | Post PTCA Postsurgical percutaneous transluminal coronary angioplasty status | + + documented in this encounter"
--- OUTSIDE RECORDS SUMMARY | ~2019-01-22 | XMS | Encounter Summary ---
Demographics + + + | Address | [address] | | | [place] [address] | + + + | Home Phone [...] [place] | | | | | [address] | | + + + + + Care Team Providers + +------+ + | Care Direct Service Provider Name | Role | Phone | + [...] | | | | | | [place] [address] | | | | | | [phone] | | | +--------+ + + + [...] | | | | | | [place] [address] | | | | | | [phone] | | | | | | | | +--------+ + + + + documented as of this encounter Visit Diagnoses Not on filedocumented in this encounter"
--- OUTSIDE RECORDS SUMMARY | ~2019-01-22 | XMS | Encounter Summary ---
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
--- OUTSIDE RECORDS SUMMARY | ~2019-01-22 | XMS | Encounter Summary ---
Demographics + + + | Address | [address] | | | [place] [address] | + + + | Home Phone [...] [place] | | | | | [address] | | + + + + + Care Team Providers + +------+ + | Care Laborer Pole Crew Name | Role | Phone | + +------+ + | Young Haque DO | PCP | | + +------+ + Encounter Details +--------+ + + + + | Date | Type | Department | Care Team | Description | +--------+ + + + + | 03/28/ | Abstract | [facility] [place] | Jenny, | | | 2019 | | CARDIOLOGY [address] | [place] NUTRITION FACULTY MEMBER [address] | | | | | [place], | [place], | | | | | [place] [address] | [place] [address] | | | | | [phone] | [phone] | | | | | | | [...] [place], | | | | | | [place] [address] | | | | | | [phone] | | | | | | | [...]
--- OUTSIDE RECORDS SUMMARY | ~2019-01-22 | XMS | Encounter Summary ---
Demographics + + + | Address | [address] | | | [place] [address] | + + + | Home Phone [...] | [place] | | | | | [address] | | + + + + + Care Team Providers + +------+ + | Care Contact Center Consultant Name | Role | Phone | [...] | | | involving | [address] | [place] | | | | | [place] | MARKO MCGUIRE | MARK[place] Herrera | | | | | coronary | [address] | [address] | | | | | artery of | Phone: | Phone: | | | | | [place] heart | [phone] | [phone] | | | | | without | Fax: | Fax: | | | | | angina | [phone] | [phone] | | | | | pectoris | | | + + + + + + + Encounter Details +--------+---------+ + + + | Date | Type | Department | Care Team | Description | +--------+---------+ + + + | 11/30/ | Office | [facility] | Carolina Randy, | Coronary artery | | 2019 | Visit | MED CTR CARDIAC | MD [address] | disease involving | | | | REHABILITATION [address] | [address] [place], | [place] coronary | | | | [address] [place] | [place] [address] | artery of [place] | | | | [place] [address] | [phone] | heart without angina | | | | [phone] | | pectoris (Primary | | | [...] note might be different from the orig [facility] CARDIAC REHABILITATION [address] [facility] [address] Cardiac Rehab Date: 11/30/2018 Patient Information Patient Name: Bob Will Date of : 1955 Age: 63 y.o. Encounter Diagnoses Code Name Primary? I25.10 Coronary artery disease involving [place] coronary artery of [place] heart without angina pectoris Yes Z98.61 Post [...] W | | | | | | [place], | | | | | | [place] [address] | | | | | | [phone] | | | | | | | | +--------+ + + + + documented as of this encounter Visit Diagnoses + + | Diagnosis | + + | Coronary artery disease involving [place] coronary artery of [place] heart without | | angina pectoris - Primary | + + | Post PTCA Postsurgical percutaneous transluminal coronary angioplasty status | + + documented in this encounter"
--- OUTSIDE RECORDS SUMMARY | ~2019-01-22 | XMS | Encounter Summary ---
Demographics + + + | Address | [address] | | | [place] [address] | + + + | Home Phone [...] | [place] | | | | | [address] | | + + + + + Care Team Providers + +------+ + | Care Solderer Barrel Ribs Name | Role | Phone | + [...] | | | involving | [address] | [place] | | | | | [place] | MARK[place] MCGUIRE | [place]rera | | | | | coronary | [address] | [address] | | | | | artery of | Phone: | Phone: | | | | | [place] heart | [phone] | [phone] | | | | | without | Fax: | Fax: | | | | | angina | [phone] | [phone] | | | | | pectoris | | | + + + + + + + Encounter Details +--------+---------+ + + + | Date | Type | Department | Care Team | Description | +--------+---------+ + + + | 12/02/ | Office | [facility] | Randy Figueroa, | Coronary artery | | 2019 | Visit | MED CTR CARDIAC | MD [address] | disease involving | | | | REHABILITATION [address] | [address] [place], | [place] coronary | | | | [place] | [place] [address] | artery of [place] | | | | [place] [address] | [phone] | heart without angina | | | | [phone] | | pectoris (Primary | | | [...] from the orig [facility] CARDIAC REHABILITATION [address] [facility] [address] Cardiac Rehab Date: 12/02/2018 Patient Information Patient Name: Bob Will Date of : 1955 Age: 63 y.o. Encounter Diagnoses Code Name Primary? I25.10 Coronary artery disease involving [place] coronary artery of [place] heart without angina pectoris Yes Z98.61 Post [...] W | | | | | | [place], | | | | | | [place] [address] | | | | | | [phone] | | | | | | | | +--------+ + + + + documented as of this encounter Visit Diagnoses + + | Diagnosis | + + | Coronary artery disease involving [place] coronary artery of [place] heart without | | angina pectoris - Primary | + + | Post PTCA Postsurgical percutaneous transluminal coronary angioplasty status | + + documented in this encounter"
--- OUTSIDE RECORDS SUMMARY | ~2019-01-22 | XMS | Encounter Summary ---
Demographics + + + | Address | [address] | | | [place] [address] | + + + | Home Phone | | + + + | Preferred Language | Unknown | + + + | Marital Status | | + + + | Yazdanism Affiliation | Unknown | + + + | Race | Unknown | + + + | Ethnic Group | Unknown | + + + Author + + + | Author | [facility] | | | and [place] | + + + | Organization | [facility] | | | and [place] | + + + | Address | Unknown | + + + | Phone | Unavailable | + + + Support + + + + + | Name | Relationship | Address | Phone | + + + + + | [place] Will | ECON | [place] | | | | | [address] | | + + + + + Care Team Providers + +------+ + | Care Negative Checker Name | Role | Phone | + [...] Monitor | CARDIOLOGY [address] [place] | Interrogation | | | | [place], | [place], | (Primary Dx); SAFETY TEACHER-D | | | | [place] [address] | [place] [address] | (AICD) [employer] | | | | [phone] | [phone] | 10/16/17 [facility] [place]; | | | | | [...] W | | | | | | [place], | | | | | | [place] [address] | | | | | | [phone] | | | | | | | [...] | e | 23:59 PDT | Interrogation SAFETY TEACHER-D | procedure are in the | | [...] scanned into | | | [facility] for remote interrogation results. Data collected by [...] | cardiac defibrillator | + + | SAFETY TEACHER-D ASHLEE) [employer] 10/16/17 EULOG[facility] Darby | + + | Ischemic cardiomyopathy Other specified forms of chronic ischemic heart disease | + + documented in this encounter"
--- OUTSIDE RECORDS SUMMARY | ~2019-01-22 | XMS | Encounter Summary ---
Demographics + + + | Address | [address] | | | [place] [address] | + + + | Home Phone [...] | [place] | | | | | [address] | | + + + + + Care Team Providers + +------+ + | Care Cloth Designer Name | Role | Phone | + [...] | | | involving | [address] | [place] | | | | | [place] | MARKO MCGUIRE | MARK[place] Herrera | | | | | coronary | [address] | [address] | | | | | artery of | Phone: | Phone: | | | | | [place] heart | [phone] | [phone] | | | | | without | Fax: | Fax: | | | | | angina | [phone] | [phone] | | | | | pectoris | | | + + + + + + + Encounter Details +--------+---------+ + + + | Date | Type | Department | Care Team | Description | +--------+---------+ + + + | 10/28/ | Office | [facility] | Randy Figueroa, | Coronary artery | | 2019 | Visit | MED CTR CARDIAC | MD [address] | disease, angina | | | | REHABILITATION [address] | [address] [place], | presence | | | | [address] [place] | [place] [address] | unspecified, | | | | [place] [address] | [phone] | unspecified vessel | | | | [phone] | | or lesion type, | | | | | | unspecified whether | | | | | | [place] or | | | | | | [...] Esther Fields RN - 10/28/2018 1000 PST [facility] CARDIAC REHABILITATION [address] [facility] [address] Cardiac Rehab Date: 10/28/2018 Patient Information Patient Name: Bob Will Date of : 1955 Age: 62 y.o. Encounter Diagnoses Code Name Primary? I25.10 Coronary artery disease, angina presence unspecified, unspecified vessel or lesi on type, unspecified whether [place] or transplanted heart Yes Z98.61 Post PTCA [...] W | | | | | | [place], | | | | | | [place] [address] | | | | | | [phone] | | | | | | | | +--------+ + + + + documented as of this encounter Visit Diagnoses + + | Diagnosis | + + | Coronary artery disease, angina presence unspecified, unspecified vessel or lesion | | type, unspecified whether [place] or transplanted heart - Primary | + + | Post PTCA Postsurgical percutaneous transluminal coronary angioplasty status | + + documented in this encounter"
--- OUTSIDE RECORDS SUMMARY | ~2019-01-22 | XMS | Encounter Summary ---
Demographics + + + | Address | [address] | | | [place] [address] | + + + | Home Phone [...] + + + | Author | [facility] | + + + | Organization | [facility] | + + + | Address | Unknown | + + + | Phone | Unavailable | + + + Support + + + + + | Name | Relationship | Address | Phone | + + + + + | Venice Mckeon | ECON | [address] | | | | | [place] [address] | | + + + + + Care Team Providers + +------+ + | Care Gripper Installer Name | Role | Phone | + [...] | | | | | (HCC) | [place], [place] | for Health | | | | | Stenosis of | [address] | and Healing | | | | | coronary | Phone: | [place], [place] | | | | | artery | [phone] | [address] | | | | | stent, | Fax: | Phone: | | | | | initial | [phone] | [phone] | | | | | encounter | | Fax: | | | | | Procedures | | [phone] | | | | | CONSULT TO [...] + + | 10/10/ | Hospital | [address] | Khurram Bedoya | | | 2018 - | Encounter | [address] | MD [address] | | | | | [address] [place] [address] | [address] | | | 10/17/ | | [place] | [place] | | | 2018 | | [address] | [address] | | | | | [phone] | [phone] | | | | | | | [...] Referring Physician & Institution: Other Dictation Primary/Outpatient Pheresis Specialist: Dr Jamal Guerrero MD Inpatient Attending Physician: Khurram Bedoya MD Author/Discharging Provider: LALA SCHOFIELD PA-C Admission Date: 10/10/2017 Discharge Date: 10/17/2017 Active Hospital Problems 1) *NSTEMI (non-ST elevated myocardial infarction) (HCC) 2) Coronary artery disease 3) Stenosis of coronary artery stent 4) Ischemic cardiomyopathy 5) Chronic systolic congestive heart failure (HCC) 7) Encounter for insertion of cardiac resynchronization therapy defibrillator (TRAVELIFT OPERATOR-D) 8) Paroxysmal atrial flutter (HCC) 9) Influenza, pneumonia 10) Prediabetes 11) Tobacco use Procedures 10/15/17: Successful percutaneous coronary intervention to the ostial left circumflex. One 3.0 x 18 mm Resolute Ranger drug-eluting stent. Successful percutaneous coronary transluminal angiopla sty of the distal left main extending into the left anterior descending coronary artery with final kissing balloon inflation with a 3.5 mm noncompliant and a 2.5 mm compliant balloon. 10/16/17: 1) EP study with VT induction 2) TRAVELIFT OPERATOR-D implantation Reason For Admission: Consideration of complex PCI vs CABG for in-stent restenosis of LCx and LM/LAD stents Hospital Course: Please see H&P for hospital course at [facility] prior to transfer to [facility]. Ron Mckeon is a 61 year old [...] treatment who was admitted in transfer from [facility] on 10/11 for consideration of PCI vs [...] support--had one 3.0 x [address] ug-eluting stent placed in ostial L [...] 10/16. VT was induced, therefor e a TRAVELIFT OPERATOR-D was implanted. He is discharging home in good condition with follow up in 1 week w ith his Pheresis Specialist. The following problems were addressed this hospitalization: [...] uenza and underwent a coronary angiogram at [facility] which revealed in stent re-stenosis of both LM into LAD and LCx stents, mild disease of RCA. Transferred to [facility] for further onel luation. CTS was consulted for consideration of CABG vs complex PCI. Due to nonviable myocardium archie wn on cardiac PET and resting NM perfusion study, PCI was chosen over CABG. On 10/15 he underw ent angiography/PCI with impella support--had one 3.0 x 18 mm Resolute Ranger drug-eluting chery nt placed in ostial L [...] II, Stage C. Etiology ischemic. TTE at [facility] showed EF 30-35%, mildly reduced RV function, [...] the past --ICD: placed by EP 10/16, TRAVELIFT OPERATOR-D -- will need 1 week f/u for wound check, then 1 month device check with EP -- f/u with outpatient server assistant 2-4 weeks # Paroxysmal Aflutter Noted Aflutter with RVR at admission in [place]; treated with amiodarone infusion. He w as transitioned to oral amiodarone and maintained normal rhythm. Given that the aflutter occ urred in setting of severe sepsis, will not continue amiodarone or warfarin. If he has recur rent arrhythmia, this will be noted on TRAVELIFT OPERATOR-D and could consider anticoagulation at that time . However, he requires DAPT and has a possible history of recent GIB, so triple therapy shou ld be avoided if not necessary --rate control: metoprolol as above --anticoagulation: holding warfarin for now given DAPT and h/o GI B. Discuss further with outpatient server assistant. May consider holding anticoagulation unless he demonstrates recurrent arrhythmia # Influenza type A - resolved # Community acquired pneumonia # Severe sepsis with shock, resolved Pt presented to [facility] 10/03 found to be Flu Apositive with [...] sepsis management , fluid resuscitation. EGD at [facility] on 10/05 showed gastritis, duodenitis, linear ulcerations [...] first post-hospitalization visit: 1. Wound check from TRAVELIFT OPERATOR-D placement 2. Consider restarting lisinopril if BPs improve and Cr is stable 3. Instructed pt to restart metformin on 08/18 but reevaluate based on Cr Schedule the following appointment(s) when you get home KULWINDER Stevens. Go on 10/19/2017. Why: at 1:15pm for heart failure follow up, to re-check labwork, and to have your wound ch ecked Contact information HEART [address] [address] KULWINDER Stevens. Go on 11/11/2017. Why: at 9:30am for cardiology follow up and to have your device checked Contact information HEART [address] [address] Medication List START taking these medications Childrens [...] Resume on 10/19. Indications: type 2 diabetes [facility] metoprolol succinate 25 mg Tb24 Commonly [...] circumflex. One 3.0 x 18 mm Resolute Ranger drug-eluting stent. Successful percutaneous coronary transluminal angiop [...] ths. You should be cleared by your server assistant prior to returning to driving. If you [...] How to Contact us: Cardiology Division Office [phone] Cardiology Patient Phone Line EDUIN [address] Dr[address] Dr., Dr., PA-C Connie Barber, NP Karen Paladino, RN Margaret Kleist, RN Evenings or weekends: Ask for on-call server assistant Drug Eluting Stent 1. Please take Plavix (clopidogrel) everyday which helps to keep the stent open. You need t o take it every day for one year and do not stop unless you are told to by your server assistant . 2. Take an aspirin 81 mg once daily indefinitely. 3. You were referred for cardiac rehab and should start now that you have had a stent place d. 4. Follow up with your server assistant within 2-4 weeks. 5. No elective surgeries [...] Lala Schofield PA-C Instructor of Cardiovascular Medicine [facility] [place] [facility] I spent 36 minutes in coordination of care and psmd-ux-cnao with the patient and/or their s urrogate in which the problems above were discussed Associated attestation - Khurram Bedoya MD - 10/17/2017 3:22 PM PSTCardiology Anthony souza I have seen and examined Mr. Mckeon and discussed the [facility]. I reviewed the practitioner's note above and agree with the documented f indings and plan of care. KHURRAM BEDOYA MD Director of the [facility] Hypertrophic Cardiomyopathy Pot Press Operator of Echocardiography Chicken Sexermailing machine operator Division of Cardiovascular Medicine documented in this encounter Discharge Instructions AttachmentsThe following attachments cannot be sent through Care Everywhere.WOUND CHECK (EN GLISH)ICD (IMPLANTABLE CARDIOVERTER-DEFIBRILLATOR): POST-OP (TONGAN)PAIN POST-SURGERY: ACUT E (TONGAN)OPIOIDS: SAFE USE (TONGAN)OPIOIDS: STORAGE AND DISPOSAL: GENERAL INFO (TONGAN)d ocumented in this encounter Medications at Time [...] Information: Implant date: 10/16/17 BiV-ICD pulse generator: Compliance Paralegal: MedBALALIKEA Model number: [id number] Serial number: [id number] RA lead: Compliance Paralegal: Medtronic Model number: 5076-52 Serial number: [id number] RV lead: Compliance Paralegal: Medtronic Model number: [id number] Serial number: [id number] CS lead: Compliance Paralegal: Medtronic Model number: [id number] Serial number: [id number] ICD PROGRAMMING: Bradycardia Parameters: Mode: DDD Lower rate limit: 50 Upper rate limit: 130 Output (A): 3.5 V at 0.4 ms Sensitivity (A): 0.3 mV Output (RV): 3.5 V at 0.4 ms Sensitivity (RV): 0.3 mV Output (CS): 2.0 V at 0.4ms Tachycardia Parameters: VT zone: 177-200 Therapies: Monitor VF zone: >200 bpm Therapies: 35 J x 6 PACING PERCENTAGE: AP: <0.1% VALUE ADVISOR: 98.3% EPISODES SINCE IMPLANT: none. TODAY'S TESTING [...] and Device check in one month at [facility] device clinic. I have reque sted our [...] Electrophysiology Fellow Division of Cardiovascular Medicine [facility] Pager [phone] signed by Lauro Jorgensen MD at 10/18/2017 [...] follow up. Lauro Jorgensen M.D. Director, Electrophysiology Crystal Growing Technicianinstructor substitute cosmetology [facility] [place] [address] Amarilis Castle MD - 10/17/2017 10:53 AM [...] hs. You should be cleared by your server assistant prior to returning to driving. ? If [...] through the full body scanner at the [facility], but only after 6 weeks post [...] How to Contact us: Cardiology Division Office [phone] Cardiology Patient Phone Line EDUIN [address] Dr[address] [...] 1) EP study with VT induction 2) TRAVELIFT OPERATOR-D Indication for the procedure: Ischemic cardiomyopathy with [...] MD Electrophysiology Fellow Division of Cardiovascular Medicine [facility] Pager [phone] ala Schofield PA-C - 10/16/2017 2:07 PM PST IP Cardiology Progress Note Date: 10/16/2017 Hospital Day: 6 Attending Pheresis Specialist: Khurram Bedoya MD Provider: LALA SCHOFIELD PA-C Primary Care Provider: Chato Matson MD Outpatient Pheresis Specialist: Dr Jamla Guerrero MD ID:Ron Mckeon is a 61 year old male with past medical history of CAD s/p anterior CHERY AL 03/2017 with cardiogenic shock s/p PCI with ANY to LM/LAD and LCx with ECMO support, systo lic heart failure (EF 20-25%), ischemic cardiomyopathy, hypertension, Atrial flutter, prior tobacco use, recent JAVON thrombus on anticoagulation, Influenza A with septic shock (10/03) re quiring intubation and mechanical ventilation, HAP on treatment who was admitted in transfer from [facility] on 10/11 for consideration of PCI vs [...] cannot appreciate murmur and sounds regular. J VALUE ADVISOR not above clavicle at 90 degrees Gastrointestinal: [...] found for: FREET4, TSH, TPOAB, THYROGLOB, THYROGLOBAB, [id number] Lab Results Component Value Date A1C 5.9 [...] circumflex. One 3.0 x 18 mm Resolute Ranger drug-eluting stent. Successful percutaneous coronary transluminal angiopla [...] uenza and underwent a coronary angiogram at [facility] which revealed in stent re-stenosis of both LM into LAD and LCx stents, mild disease of RCA. Transferred to [facility] for further onel luation. CTS was consulted [...] II-III, Stage C. Etiology ischemic. TTE at [facility] showed EF 30-35%, mildly reduced RV function, [...] check with EP -- f/u with outpatient server assistant 2-4 weeks # Paroxysmal Aflutter Noted Aflutter with RVR at admission in [place]; treated with amiodarone infusion. Now maintaining SR on oral amio. CHADS-VASC 3, HAS-BLED 3. Was previously on heparin infusion fo r NSTEMI but this has been stopped and AC was not started in anticipation of PCI. --rate control: carvedilol as above --rhythm control: continue amiodarone 200 mg daily for now, to be reassessed b y outpatient server assistant --anticoagulation: holding warfarin for now given DAPT and h/o GIB. Discuss fu rther with outpatient server assistant. May consider holding anticoagulation unless he demonstra janeth recurrent arrhythmia # Influenza type A - resolved # Community acquired pneumonia # Severe sepsis with shock, resolved Pt presented to [facility] 10/03 found to be Flu A positive [...] sepsis management , fluid resuscitation. EGD at [facility] on 10/05 showed gastritis, duodenitis, linear ulcerations [...] patient was interviewed and examined by attending server assistant, Dr. Khurram Bedoya MD , who is in agreement with above described findings, assessment and plan. LALA SCHOFIELD PA-C Cardiovascular Medicine [facility] Pager [phone] I spent 36 minutes in coordination of care and ochl-dv-psrv with the patient and/or their surrogate in [...] current post-cath car e. JOHN AMAYA MD [address] [place] [address] Ruth Ann Aguilar PA-C - [...] circ and LAD. EPS v-stim with possible TRAVELIFT OPERATOR-D tomorrow (QRS today is 152 atypical LB BB). See yesterdays attestation Sophie Darby MD Cardiovascular Medicine - Electrophysiology [facility] [place] at [facility] Arya Low MD - 10/15/2017 1:05 PM PSTCARDIOLOGY PRELIMINARY PROCEDURE NOTE Primary Care Provider: Chato Matson MD Referring Provider: Other Dictation Prepleater Staff: Tejal Modi M.D. Procedure(s): 1. Coronary angiography 2. Percutaneous coronary intervention 3. Left heart catheterization 4. Impella placement and removal 5. Moderate conscious sedation Indications: Unstable angina, planned LM intervention Access: 14-Grenadian RFA 6-Grenadian RFV 7-Grenadian LFA Post Procedure Access:No evidence of significant [...] Note Date: 10/15/2017 Hospital Day: 5 Attending Pheresis Specialist: Khurram Bedoya MD Provider: LALA SCHOFIELD PA-C Primary Care Provider: Chato Matson MD Outpatient Pheresis Specialist: Dr Jamal Guerrero MD ID:Ron Mckeon is a 61 year old male with past medical history of CAD s/p anterior CHERY AL 03/2017 with cardiogenic shock s/p PCI with ANY to LM/LAD and LCx with ECMO support, systo lic heart failure (EF 20-25%), ischemic cardiomyopathy, hypertension, Atrial flutter, prior tobacco use, recent JAVON thrombus on anticoagulation, Influenza A with septic shock (10/03) re quiring intubation and mechanical ventilation, HAP on treatment who was admitted in transfer from [facility] on 10/11 for consideration of PCI vs [...] cannot appreciate murmur and sounds regular. J VALUE ADVISOR not above clavicle at 90 degrees Gastrointestinal: [...] found for: FREET4, TSH, TPOAB, THYROGLOB, THYROGLOBAB, [id number] Lab Results Component Value Date A1C 5.9 [...] uenza and underwent a coronary angiogram at [facility] which revealed in stent re-stenosis of both LM into LAD and LCx stents, mild disease of RCA. Transferred to [facility] for further onel luation. CTS was consulted for consideration of CABG vs complex PCI. Due to nonviable myocardium archie wn on cardiac PET and resting NM perfusion study, he will proceed with PCI tomorrow with Imp tania support. -- to excavation laborer today for PCI with impella support --ASA [...] II-III, Stage C. Etiology ischemic. TTE at [facility] showed EF 30-35%, mildly reduced RV function, [...] Noted Aflutter with RVR at admission in [facility]; treated with amiodarone infusion. Now maintaining SR [...] sepsis with shock, resolved Pt presented to [facility] 10/03 found to be Flu A positive [...] sepsis management , fluid resuscitation. EGD at [facility] on 10/05 showed gastritis, duodenitis, linear ulcerations [...] patient was interviewed and examined by attending server assistant, Dr. Khurram Bedoya MD , who is in agreement with above described findings, assessment and plan. LALA SCHOFIELD PA-C Cardiovascular Medicine [facility] Pager [phone] I spent 38 minutes in coordination of care and cwjj-ps-ccds with the patient and/or their surrogate in which the following was discussed: plan for PCI with impella support today, hea rt failure, anticoagulation for aflutter, discharge planning Associated attestation - Khurram Bedoya MD - 10/15/2017 1:15 PM PSTCardiology Attendi ng I have seen and examined Mr. Mckeon and discussed the [facility]. I reviewed the practitioner's note above and agree with the documented f indings and plan of care. KHURRAM BEDOYA MD Director of the [facility] Hypertrophic Cardiomyopathy Pot Press Operator of Echocardiography Chicken Sexermailing machine operator Division of Cardiovascular Medicine Ruth Ann Carvajal [...] thickening is segmentally abnormal. 10/03/17: TTE @ [facility] Summary The number of aortic valve [...] remain. CARDIAC CATHETERIZATION: DATE OF PROCEDURE:10/03/17 @ [facility] CORONARY ANGIOGRAPHY DOMINANCE: Right LEFT MAIN [...] about Vf/VT risk in both short and jail. Given NSVT and EF 30-35%, we will therefore proceed to an EP study with implantation o f an ICD if she has inducible VT. Given atypical LBBB QRS 147 and current functional status 3 (prior 1-2 by report) and concern for lack of EF recovery, we would plan for TRAVELIFT OPERATOR with His- bundle lead if needed. Sophie Darby MD Cardiovascular Medicine - Electrophysiology [facility] [place] at [facility] Lala Schofield PA-C - 10/14/2017 11:58 AM PSTFormatting of this note might be different f rom the original. IP Cardiology Progress Note Date: 10/14/2017 Hospital Day: 4 Attending Pheresis Specialist: Khurram Bedoya MD Provider: LALA SCHOFIELD PA-C Primary Care Provider: Chato Matson MD Outpatient Pheresis Specialist: Dr Jamal Guerrero MD ID:Ron Mckeon is a 61 year old male with past medical history of CAD s/p anterior CHERY AL 03/2017 with cardiogenic shock s/p PCI with ANY to LM/LAD and LCx with ECMO support, systo lic heart failure (EF 20-25%), ischemic cardiomyopathy, hypertension, Atrial flutter, prior tobacco use, recent JAVON thrombus on anticoagulation, Influenza A with septic shock (10/03) re quiring intubation and mechanical ventilation, HAP on treatment who was admitted in transfer from [facility] on 10/11 for consideration of PCI vs [...] Very t hankful of care provided at [facility] Current Inpatient Medications: acetaminophen (TYLENOL) tablet 650 [...] found for: FREET4, TSH, TPOAB, THYROGLOB, THYROGLOBAB, [id number] Lab Results Component Value Date A1C 5.9 [...] uenza and underwent a coronary angiogram at [facility] which revealed in stent re-stenosis of both LM into LAD and LCx stents, mild disease of RCA. Transferred to [facility] for further onel luation. CTS was consulted [...] II-III, Stage C. Etiology ischemic. TTE at [facility] showed EF 30-35%, mildly reduced RV function, [...] Noted Aflutter with RVR at admission in [facility]; treated with amiodarone infusion. Now maintaining SR [...] sepsis with shock, resolved Pt presented to [facility] 10/03 found to be Flu A positive [...] sepsis management , fluid resuscitation. EGD at [facility] on 10/05 showed gastritis, duodenitis, linear ulcerations [...] patient was interviewed and examined by attending server assistant, Dr. Khurram Bedoya MD , who is in agreement with above described findings, assessment and plan. LALA SCHOFIELD PA-C Cardiovascular Medicine [facility] Pager [phone] I spent 42 minutes in coordination of care and cqii-fp-lihz with the patient and/or their s urrogate in which the following was discussed: results of nuc med and PET scan studies indic ating no viable myocardium and thus will plan for complex PCI tomorrow Associated attestation - Khurram Bedoya MD - 10/14/2017 9:29 PM PSTCardiology Attendi libby I have seen and examined Mr. Mckeon and discussed the patient's [facility]. I reviewed the practitioner's note above and agree with the documented f indings and plan of care. KHURRAM BEDOYA MD Director of the [facility] Hypertrophic Cardiomyopathy Pot Press Operator of Echocardiography Chicken Sexermailing machine operator Division of Cardiovascular Medicine Ashleigh Alvarez ACNP - 10/13/2017 8:33 AM PSTFormatting of this note might be diff erent from the original. Cardiology Inpatient Progress Note Date: 10/13/2017 Hospital Day: 3 Primary Care Physician: Chato Matson MD Outpatient Pheresis Specialist: Dr Jamal Guerrero MD Attending Pheresis Specialist: Khurram Bedoya MD Provider: KULWINDER Grace ID: [...] who was admitted in transfe r from [facility] on 10/11 for consideration of PCI vs [...] found for: FREET4, TSH, TPOAB, THYROGLOB, THYROGLOBAB, [id number] Lab Results Component Value Date A1C 5.9 [...] exam dated, 03/30/2017, the LVEF is similar. [facility] CXR 10/11/17: FINDINGS: The increased lung volumes. [...] flow to distal LAD 10/03/17 Echo at [place]: The number of aortic valve leaflets cannot [...] stents # NSTEMI Pt was admitted to [facility] 10/03 with hypoxemic respiratory failure, severe sepsis and s hock thought to be due to influenza type A as below. Noted to have new LBBB, NSTEMI with pea k trop 26. Underwent coronary angiogram at [facility] 10/04 which revealed in stent re-steno sis of both LM into LAD and LCx stents, mild disease of RCA. Transferred to [facility] for further evaluation. TTE showed LV function [...] for PCI (likely with Dr Modi with [facility] a support) which would require repeat bolus [...] II-III, Stage C. Etiology ischemic. TTE at [facility] showed EF 30-35%, mildly reduced RV function, mild dilation of ascending aorta. LVEDP 14 mm hg during catheterization 10/04 ( in setting of hypotension). Pt was diuresed at [facility], appears euvolemic on exam. Pt wa s [...] Noted Aflutter with RVR at admission in [facility], treated with amiodarone infusion, bertha alonzo SR [...] admitted with acute dyspnea, respiratory failure to [facility] 10/03 found to be Flu A p [...] sepsis management , fluid resuscitation. EGD at [facility] on 10/05 showed gastritis, duodenitis, linear ulcerations [...] patient was interviewed and examined by attending server assistant, Dr. Khurram Bedoya MD , who is in agreement with above described findings, assessment and plan. KULWINDER Grace Instructor of Medicine [facility] [place] Pager [phone] I spent 33 minutes in coordination of care and mrbg-iq-gwkd with the patient and/or their s urrogate in which management of CAD, imaging plan and consultation with radiology, revascula rization treatment was discussed Associated attestation - Khurram Bedoya MD - 10/13/2017 2:48 PM PSTCardiology Attendi I have seen and examined Mr. Mckeon and discussed the patient's management with the [facility] practitioner. I reviewed the practitioner's note above and agree with the documented f indings and plan of care. KHURRAM BEDOYA MD Director of the [facility] Hypertrophic Cardiomyopathy Pot Press Operator of Echocardiography Chicken Sexermailing machine operator Division of Cardiovascular Medicine Ashleigh Alvarez ACNP - 10/12/2017 8:02 AM PSTFormatting of this note might be diff erent from the original. Cardiology Inpatient Progress Note Date: 10/12/2017 Hospital Day: 2 Primary Care Physician: Chato Matson MD Outpatient Pheresis Specialist: Dr Jamal Guerrero MD Attending Pheresis Specialist: Khurram Bedoya MD Provider: KULWINDER Grace ID: [...] who was admitted in transfe r from [facility] on 10/11 for consideration of PCI vs [...] found for: FREET4, TSH, TPOAB, THYROGLOB, THYROGLOBAB, [id number] Lab Results Component Value Date A1C 5.6 [...] exam dated, 03/30/2017, the LVEF is similar. [facility] CXR 10/11/17: FINDINGS: The increased lung volumes. [...] flow to distal LAD 10/03/17 Echo at [place]: The number of aortic valve leaflets cannot [...] stents # NSTEMI Pt was admitted to [facility] 10/03 with hypoxemic respiratory failure, severe sepsis and s hock thought to be due to influenza type A as below. Noted to have new LBBB, NSTEMI with pea k trop 26. Underwent coronary angiogram at [place] 10/04 which revealed in stent re-steno sis of both LM into LAD and LCx stents, mild disease of RCA. Transferred to [facility] for further evaluation. TTE shows LV function [...] II-III, Stage C. Etiology ischemic. TTE at [facility] showed EF 30-35%, mildly reduced RV function, mild dilation of ascending aorta. LVEDP 14 mm hg during catheterization 10/04 ( in setting of hypotension). He was diuresed at [place], appears euvolemic on exam today. Pt was [...] Aflutter with RVR prior to admission in [place], treated with amioda rima infusion, maintaining SR [...] admitted with acute dyspnea, respiratory failure to [facility] 10/03 found to be Flu pos itive. [...] sepsis management , fluid resuscitation. EGD at [place] on 10/05 showed gastritis, duodenitis, linear ulcerations [...] patient was interviewed and examined by attending server assistant, Dr. Khurram Bedoya MD , who is in agreement with above described findings, assessment and plan. Ashleigh Alvarez, BANNERP Instructor of Medicine [facility] [place] Pager [phone] I spent 51 minutes in coordination of care and pqjg-bf-mada with the patient and/or their s urrogate in which management of CAD, imaging plan and consultation with radiology, pneumonia treatment was discussed Associated attestation - Khurram Bedoya MD - 10/12/2017 3:00 PM PSTCardiology Attendi I have seen and examined Mr. Mckeon and discussed the patient's management with the [facility]. I reviewed the practitioner's note above and agree with the documented f indings and plan of care. KHURRAM BEDOYA MD Director of the [facility] Hypertrophic Cardiomyopathy Pot Press Operator of Echocardiography Chicken Sexermailing machine operator Division of Cardiovascular Medicine Cristi Sutton - 10/11/2017 12:15 PM PSTTransthoracic echocardiogram completed. Final report to follow. documented in this enc ounter Plan of Treatment + +---------+--------+ + + | Name | Type | Priori | Associated Diagnoses | Order Schedule | | | | ty | | | + +---------+--------+ + + | SCREEN PRINTING MACHINE OPERATOR INT | Imaging | Routin | | Tomorrow for 1 | | CORONARY ANGIOGRAM | | e | | Occurrences starting | | | | | | 10/15/2017 until | | | | | | 10/15/2017 | + +---------+--------+ + + | SCREEN PRINTING MACHINE OPERATOR EP ICD | Imaging | Routin | [...] | | PST | infarction) ([facility]) | results section. | + +--------+ + + + | CAPILLARY BLOOD | Routin | 10/17/2017 | Non-ST elevation | Results for this | | GLUCOSE (NO CHG), | e | 7:38 AM | (NSTEMI) myocardial | procedure are in the | | POC | | PST | infarction ([facility]) | results section. | + [...] | | PST | infarction) ([facility]) | results section. | + [...] | | PST | infarction ([facility]) | results section. | + [...] | + +--------+ + + + | SCREEN PRINTING MACHINE OPERATOR | Routin | 10/15/2017 | | Results [...] | | PST | infarction ([facility]) | results section. | + [...] [facility] | [address] | [place], [place] | | | [facility] CARE | [address] | [address] | | | TESTS | | | [...] [facility] | [address] | [place], [place] | | | CHRISTIE SILVA [facility] | [address] | [address] | | | TESTS | | | [...] Note | + + | Service Account, Auctomatic In Interface - 10/17/2017 7:51 AM PST [...] [facility] | [address] | [place] [address] | | | SERVICES, CORE | PARK [...] | | | LABORATORY | | | ROMANIAN | | | SERVICES, | | | [...] | + + + + + | [facility] | [address] | [place] [address] | | | SERVICES, ИРИНА | JT [...] At | + + + | STUDY: IN CHEST 1 VIEW HISTORY: Evaluated lead placement. | [facility] | | COMPARISON: STUDY: IN CHEST 1 VIEW FINDINGS: A new | [...] Interface - 10/17/2017 7:51 AM PST STUDY: IN CHEST 1 | | VIEWHISTORY: Evaluated lead placement.COMPARISON: STUDY: IN CHEST 1 VIEWFINDINGS: A | | new [...] At | + + + | Sophie Dabry MD 10/27/2017 11:12 AM PATIENT NAME: | [...] He | | | is candidate for TRAVELIFT OPERATOR-D since he as class 2 baseline heart failure | | | and currently class 3 heart failure with LBBB 152 msec. | | | PROCEDURE ATTENDING: Sophie Darby MD | | | FELLOW: Amarilis Castle MD | | | PROCEDURAL DATA: Procedure: New implant Implanted | | | generator software test automation engineer: Medtronic Implanted leads software test automation engineer: | | | Medtronic Radha-procedure Anticoag: None Presenting rhythm: | | | NSR Existing device under advisory? No Pacemaker | | | dependent: No Method of sedation: Conscious sedation - Anesth | | | provider Response to sedation: Normal Fluoroscopy time (see | | | log): 45-47 minutes MEDICATIONS: See anesthesia log | | | and excavation laborer log INTAKE AND OUTPUT: 1000 ml / [...] INFORMATION: BiV-ICD pulse generator: | | | Compliance Paralegal: Medtronic Model number: [id number] Serial | | | number: [id number] RA lead: Compliance Paralegal: Medtronic | | | Model number: 5076-52 Serial number: [id number] RV lead: | | | Compliance Paralegal: Medtronic Model number: [id number] Serial | | | number: [id number] CS lead: Compliance Paralegal: Medtronic | | | Model number: [id number] Serial number: [id number] MEASURED | | | PARAMETERS: RA lead: [...] Division of Cardiovascular Medicine | | | Formerly [facility] Pager [phone] Pursuant to | | | Federal Medicare requirements, I certify that I, Sophie Darby MD, | | | was present for the entire procedure, performed all critical | | | elements, and participated directly in the generation of this | | | report. Sophie Darby MD Cardiovascular Medicine - | | | Electrophysiology [facility] [place] at [facility] | | + + + PROCEDURE NOTE [...] See | | | anesthesia log and excavation laborer log FLUIDS: In: 300 ml/ Out: 0 [...] HV interval (ms): 75 | | | IN interval (ms): 180 QRS duration (ms): 130 [...] Division | | | of Cardiovascular Medicine [facility] | | | Pager [phone] Pursuant to Federal Medicare requirements, I certify | | | that I, Sophie Darby MD, was present for the entire procedure, | | | performed all critical elements, and participated directly in the | | | generation of this report. Sophie Darby MD Cardiovascular | | | Medicine - Electrophysiology [facility] [place] at [facility] | | + + + VBG-FULL ABL, POC (10/16/2017 3:55 PM PST) + + + + + + | Component | Value | Ref Range | Performed | Pathologist | | | | | At | Signature | + + + + + + | PH VENOUS, | 7.32 (L) | 7.35 - 7.45 | [facility] - | | | POC | | [...] + + + | [facility] | [address] | [place], [place] | | | JULIANN SILVA OF [facility] | [address] | [address] | | | TESTS | | | [...] [facility] | [address] | [place], [place] | | | [facility] POINT OF CARE | [address] | [address] | | | TESTS | | | [...] [facility] | [address] | [place] [address] | | | SERVICES, CORE | PARK [...] | | | LABORATORY | | | ROMANIAN | | | SERVICES, | | | [...] + + + + + | [facility] | [address] | [place] [address] | | | ИРИНА ANTOINE | JT [...] [facility] | [address] | [place], [place] | | | JULIANN SILVA OF CARE | [address] | [address] | | | TESTS | | | [...] DEPT OF | [address] | [place], [place] | | | CARDIOLOGY | [address] | [address] | | + + + + + CARDIAC CATH (10/15/2017 2:11 PM PST) + + | Procedure Note | + + | Tejal Modi MD - 10/15/2017 2:11 PM PST DATE OF PROCEDURE:October 15, | | 2018PERFORMING PHYSICIAN:Tejal Modi [facility] ATTENDING:Mike Bray MDTheramy was no | | [...] 110 mL.FLUOROSCOPY TIME:17.8 minutes.FLUOROSCOPY | | DAP:7406.0 gGcfu9FCGVISZFFVCQ:1. Left ventricular pressure 91/23 mmHg.2. Aortic | | pressure 93/72 mmHg, mean of 80 mmHg. 3. Heart rate 71 beats per minute.ACCESS:1. | | 14-Grenadian Impella sheath in the right femoral artery.2. 7-Grenadian sheath in the left | | femoral artery.3. 6-Grenadian sheath in the right femoral vein.ESTIMATED BLOOD [...] | micropuncture technique and ultrasound guidance, a 5-Grenadian sheath was inserted in the | | right femoral artery and a 6-Grenadian sheath was inserted in the right femoral vein. Two | | Perclose devices were deployed in the preclosure method and then the 5-Grenadian sheath was | | exchanged over an Amplatz stiff wire for the 14-Grenadian Impella sheath. A 5-Grenadian | | angled pigtail catheter was then [...] technique and ultrasound guidance and placed a 7-Grenadian sheath. A 7-Grenadian XB 3.5 guide | | catheter was [...] and a 3.0 x 18 mm Resolute Ranger drug-eluting stent was advanced over the | [...] and pulled out of the body. The 14-Grenadian sheath was | | then removed and [...] with one 3.0 x 18 mm Resolute Ranger drug-eluting stent. Successful | | percutaneous coronary [...] | | 10/15/2017 13:25:02DT: 10/15/2017 14:11:10Job #: [id number] | |2. Lesion type: C. | |3. [...] |BCN/MODL | | | | | | /[id number] | + + ACT, POC-CCL ONLY (10/15/2017 [...] [facility] | [address] | [place], [place] | | | JULIANN SILVA OF CARE | [address] | [address] | | | TESTS | | | [...] ANA MARIA | [address] | [place], [place] | | | JULIANN SILVA OF [facility] | [facility] | [address] | | | TESTS | | | [...] [facility] | [address] | [place], [place] | | | [facility]ARE | [address] | [address] | | | TESTS | | | | + + + + + SCREEN PRINTING MACHINE OPERATOR EMERGENT/IMMEDIATE PROCEDURE (10/15/2017 11:00 AM PST) + + | Specimen | + + | | + + + + + | Narrative | Performed At | + + + | Procedure | | | performed in the Cardiac Prepleater. See procedure notes for details. | | [...] [facility] | [address] | [place], [place] | | | [facility]ARE | [facility] | [address] | | | TESTS | | | [...] [facility] | [address] | [place] [address] | | | SERVICES, CORE | PARK [...] | | | LABORATORY | | | ROMANIAN | | | SERVICES, | | | [...] | + + + + + | [facility] | [address] | [place] [address] | | | SERVICES, CORE | PARK [...] | + + + + + | [facility] | [address] | [place] [address] | | | ИРИНА ANTOINE | JT [...] + + + | E[facility] | [address] | [place], [place] | | | [facility] CARE | [address] | [address] | | | TESTS | | | [...] | | | LABORATORY | | | ROMANIAN | | | SERVICES, | | | [...] | + + + + + | [facility] | [address] [facility] | [place] [address] | | | SERVICES, CORE | PARK [...] [facility] | [address] | [place] [address] | | | ИРИНА ANTOINE | JT [...] [facility] | [address] | [place], [place] | | | JULIANN SILVA OF [facility] | [address] | [address] | | | TESTS | | | [...] IMPRESSION: No significant tracer uptake within the bip-gd-xilzfi | | | anterior wall/interventricular septum and [...] significant tracer | | uptake within the vag-rd-btbovr anterior wall/interventricular septum and apex | | corresponding to same non-perfused areas seen on myocardial rest perfusion scan, | | compatible with nonviable myocardium in these regions. I have personally reviewed the | | images and, if necessary, edited the report. I agree with the report as now presented. | |No significant tracer uptake within the nsj-ci-pxlebh anterior wall/interventricular septum and apex corresponding to [...] [facility] | [address] | [place], [place] | | | JULIANN SILVA OF CARE | [address] | [address] | | | TESTS | | | [...] [facility] | [address] | [place], [place] | | | JULIANN SILVA OF CARE | [address] | [address] | | | TESTS | | | [...] [facility] | [address] | [place], [place] | | | JULIANN SILVA OF CARE | [address] | [address] | | | TESTS | | | [...] [facility] | [address] | [place], [place] | | | JULIANN SILVA OF CARE | [facility] | [address] | | | TESTS | | | [...] [facility] | [address] | [place], [place] | | | JULIANN SILVA OF CARE | [address] | [address] | | | TESTS | | | [...] [facility] | [address] | [place], [place] | | | [facility] POINT [facility] CARE | [address] | [address] | | | TESTS | | | [...] [facility] | [address] | [place], [place] | | | JULIANN SILVA OF CARE | [address] | [address] | | | TESTS | | | [...] [facility] | [address] | [place], [place] | | | JULIANN SILVA OF CARE | [address] | [address] | | | TESTS | | | [...] [facility] | [address] | [place], [place] | | | JULIANN SILVA OF CARE | [address] | [address] | | | TESTS | | | [...] - [facility] | [address] | [place], [place] | | | JULIANN SILVA OF CARE | [address] | [address] | | | TESTS | | | [...] [facility] | [address] | [place], [place] | | | JULIANN SILVA OF [facility] | [address] | [address] | | | TESTS | | | | + + + + + NM MYOCARDIAL PERFUSION (SPECT) SINGLE AT REST OR STRESS (10/13/2017 11:18 AM PST) + + | Specimen | + + | | + + + + + | Narrative | Performed At | + + + | EXAM: Regadenoson Sestamibi SPECT Myocardial Perfusion Study | [facility] | | 10/13/17 09:54:20 HISTORY: Myocardial infarction [...] [facility] | [address] | [place], [place] | | | [facility]INT OF CARE | [address] | [address] | | | TESTS | | | [...] [facility] | [address] | [place] [address] | | | SERVICES, CORE | PARK [...] | | | LABORATORY | | | ROMANIAN | | | SERVICES, | | | [...] + + + + + | [facility] | [address] | [place] [address] | | | ИРИНА ANTOINE | JT [...] (H) | 70 - 99 mg/dL | [facility] - | | | GLUCOSE, | | [...] [facility] | [address] | [place], [place] | | | JULIANN SILVA OF CARE | [address] | [address] | | | TESTS | | | [...] | + + + + + | [facility] | [address] [facility] | [place] [address] | | | SERVICES, CORE | JT [...] [facility] | [address] | [place], [place] | | | JULIANN SILVA OF [facility] | [facility] | [address] | | | TESTS | | | | + + + + + MR CARDIAC COMPREHENSIVE W/O CONTRAST (10/12/2017 12:38 PM PST) + + | Specimen | + + | | + + + + + | Narrative | Performed At | + + + | Report ====== Lumber Sales Supervisor: Rodríguez Fortune ([phone])shubham | EULOGIO | | richy Fish House Worker: shubham lockhart Fellow: shubham lockhart | RADIOLOGY | | Picking Tech: shubham lockhart Viewer: shubham lockhart Report Date: | CARDIAC IMAGING | | Oct 2017, 09:22:25 PST Patient ------- Patient: RON MCKEON | | | Acc #: [id number] | | | Ethnicity: N Status: Final [...] | | | Image Quality: Good Scanner Compliance Paralegal: Plexxi Scanner | | | Model: Zhenpu Education Scanner Serial Number: [id number] Scanner Software | | | Platform: 5.3.15.3.1.0 Staff: Rodríguez Fortune Modality: MR | | | Indication Name: routine Protocol Name: CMR W Flows WO Contrast | | | Findings -------- Non-cardiac findings were reviewed by Dr. Curtis. | | | This exam was terminated prematurely and is lmiited to specialty development consultant images. | | | There are bilateral [...] - 10/16/2017 9:22 AM PST | | Report======Lumber Sales Supervisor: Rodríguez Fortune ([id number]), shubham Rodriguezalyst: shubham | | Lorena: shubham Garciaechnician: shubham Beckwithwer: shubham | | Rosey Date: 16 Oct 2017, 09:22:25 PSTPatient-------Patient: RON MCKEON | | JMedical Record Number: [id number] ID: [id number] #: [id number]: NStatus: | | Final ReportReport Number: [id number]: MaleBirthdate: 1955 (61 yrs)Study Date: 05 | | Oct 2017Study Description: CMR with Flows with ContrastReferring Physician: KHURRAM | | ANASTACIAITSAULOBlood Pressure: /Heart rate:Height (cm): 0Weight (kg): 89BMI (kg/m ): 0BSA | | (m ): 0 (Mosteller Formula)Image Quality: Jazmincansaulo Compliance Paralegal: Jibe | | [employer]enton[employer] International GroupScanner Model: SwypecanCoffeeTable Serial Number: [id number] Software Platform: | | 5.3.15.3.1.0Staff: Rodríguez FortuneModality: MRIndication Name: routineProtocol Name: | | CMR W Flows WO ContrastFindings--------Non-cardiac findings were reviewed by | | Ever.This exam was terminated prematurely and is lmiited to specialty development consultant images.There are | | bilateral pleural effusions. [...] Formula) | |Image Quality: Good | |Scanner Compliance Paralegal: Plexxi | |Scanner Model: Zhenpu Education | |Scanner Serial Number: [id number] | |Scanner Software Platform: 5.3.15.3.1.0 | |Staff: Rodríguez Fortune | |Modality: MR | |Indication Name: routine | |Protocol Name: CMR W Flows WO Contrast | |Findings | |-------- | |Non-cardiac findings were reviewed by Dr. Curits. | |This exam was terminated prematurely and is lmiited to specialty development consultant images. | |There are bilateral pleural effusions. [...] MARIA | [address] | [place], [place] | | | JULIANN SILVA OF CARE | [address] | [address] | | | TESTS | | | [...] LABORATORY | [address] | [place] [address] | | | SERVICES, CORE | JT [...] [facility] | [address] | [place] [address] | | | ИРИНА ANTOINE | JT [...] | | | LABORATORY | | | ROMANIAN | | | SERVICES, | | | [...] + + + + + | [facility] | [address] [facility] | [place] [address] | | | ARASH, ИРИНА | JT [...] EULOGIO CAL[facility]RES[facility] | [address] | [place] [address] | | | SERVICES, ИРИНА | JT [...] [facility] | [address] | [place], [place] | | | R[facility]O POINT OF CARE | [address] | [address] | | | TESTS | | | [...] E[facility] | [address] | [place], [place] | | | RICARDO [facility]PHENS OF [facility] | [address] | [address] | | | TESTS | | | [...] EULOGIO on: 10/12/2017 8:10:02 AM PST by: [id number] | | + + + + + + + + | Performing | Address | City/State/Zipcode | Phone Number | | Organization | | | | + + + + + | [facility] | [address] | [place] [address] | | | [place] | | | | + + + [...] | + + + + + | [facility] | [address] | [place] [address] | | | ИРИНА ANTOINE | JT [...] [facility] | [address] | [place] [address] | | | SERVICES, CORE | PARK [...] [facility] | [address] | [place] [address] | | | SERVICES, ИРИНА | JT [...] | [facility] | | considered for monitoring gripper installer glycemic control in patients with: | LABORATORY [...] | fructosamine should be considered for monitoring jail glycemic | | | control in patients [...] + + + + + | [facility] | [address] [facility] | [place] [address] | | | SERVICES, SPECIAL | JT [...] Performed At | + + + | [facility] | [facility] DEPT OF | | [facility]chocardi[facility] | CARDIOLOGY | | Laboratory [address] [place] [address], | | | [place] [address] Pt Name: | | | RON MCKEON Study Date/Time 10/11/2017 / 11:47:35 | | | AMMRN: [id number] Most recent | | | prior: 03/30/2017Acc #: [id number] No. | | | previous echos: 4DOB: 1955 61 years Heart | | | Rate: 84 bpmHeight: 69.0 in | | | Blood Pressure: 115/68 mm/HgWeight: 196.0 | | | lb Gender: | | | MBSA: 2.05 m2 Order | | | ID: [id number] Railroad Crane Operator: Shahab Sutton [facility] | | | Referring Provider: Kimmy [...] | | | presents on transfer from [place] for consideration of complex PCI | | [...] | | Ao (prox) 3.70 cm 18.1 mm/j9Bxlfrjursh of | | | chamber size and geometry is accomplished through the incorporation of | | | linear, volumetric, and indexed values Wall Scoring: Report | | | electronically signed by: [id number] Khurram Bedoya MD (10/11/2017, | | | 12:59:49 PM) Final (Updated) | | | Final (Updated) | | + + + + + | Procedure Note | + + | Interface, Cardiology Results - 10/11/2017 1:00 PM [facility] | | [facility] [address] [place] [address] | | [place], [place] [address] Pt Name: RON Chaudhary | | MIKE Study Date/Time 10/11/2017 / 11:47:35 AMMRN: [id number] Most | | recent prior: 03/30/2017Acc #: [id number] No. previous echos: 4DOB: | | 1955 61 years Heart Rate: 84 bpmHeight: 69.0 in Blood | | Pressure: 115/68 mm/HgWeight: 196.0 lb Gender: MBSA: | | 2.05 m2 Order ID: [id number] Railroad Crane Operator: Shahab Sutton RDReferring | | Provider: [...] use disorder who presents on transfer from [place] | | for consideration of complex PCI [...] Ao (prox) | | 3.70 cm 18.1 mm/m3Tyzrildhru of chamber size and geometry is accomplished | | through the incorporation of linear, volumetric, and indexed values Wall Scoring: Report | | electronically signed by: [id number] Khurram Bedoya MD (10/11/2017, 12:59:49 PM) | [...] | | | |Report electronically signed by: [id number] Khurram Bedoya MD (10/11/2017, 12:59:49 | |PM) | | | | | | | | Final (Updated) | + + + + + + + | Performing | Address | City/State/Zipcode | Phone Number | | Organization | | | | + + + + + | [facility] | [address] | [place], [place] | | | CARDIOLOGY | [address] | [address] | | + + + + + X-RAY PORTABLE CHEST 1 VIEW (10/11/2017 11:24 AM PST) + + | Specimen | + + | | + + + + + | Narrative | Performed At | + + + | STUDY: IN CHEST 1 VIEW COMPARISON: 03/21/17. HISTORY: Cough. [...] Note | + + | Service Account, [employer] In Interface - 10/11/2017 1:51 PM PST STUDY: IN CHEST 1 | | VIEW COMPARISON: 03/21/17.HISTORY: [...] [facility] | [address] | [place] [address] | | | SERVICES, CORE | PARK [...] | + + + + + | [facility] | [address] | [place] [address] | | | ИРИНА ANTOINE | JT [...] | | | LABORATORY | | | ROMANIAN | | | SERVICES, | | | [...] | + + + + + | [facility] | [address] | [place] [address] | | | SERVICES, ИРИНА | JT [...] [facility] | [address] | [place] [address] | | | SERVICES, CORE | PARK [...] [facility] | [address] | [place] [address] | | | ИРИНА ANTOINE | JT [...] + + + + + | [facility] | [address] [facility] | [place] [address] | | | SERVICES, CORE | PARK [...] [facility] | [address] | [place] [address] | | | SERVICES, CORE | JT [...] DEPT OF | [address] | [place], [place] | | | CARDIOLOGY | [address] | [address] | | + + + + + [...] + | Coronary artery disease involving [place] coronary artery of [place] heart, angina | | presence unspecified | [...] unspecified type of vessel, | | [place] or graft | + + | Paroxysmal atrial flutter (HCC) Atrial flutter | + + | Chronic systolic congestive heart failure (HCC) Chronic systolic heart failure | + + | Encounter for insertion of cardiac resynchronization therapy defibrillator (TRAVELIFT OPERATOR-D) | + + | Influenza, pneumonia Influenza [...] | | | | | Until [facility] 10/15/17 at 1220 | | | [...]
--- OUTSIDE RECORDS SUMMARY | ~2019-01-22 | XMS | Encounter Summary ---
Demographics + + + | Address | [address] | | | [place] [address] | + + + | Home Phone | | + + + | Preferred Language | Unknown | + + + | Marital Status | | + + + | Mandaen Affiliation | NRP | + + + | Race | White | + + + | Ethnic Group | Not or | + + + Author + + + | Author | [facility] | + + + | Organization | [facility] | + + + | Address | Unknown | + + + | Phone | Unavailable | + + + Support + + + + + | Name | Relationship | Address | Phone | + + + + + | [place] Will | ECON | [address] | | | | | [place] [address] | | + + + + + Care Team Providers + +------+ + | Care Filters Assembler Name | Role | Phone | [...] David | | | | | at [facility] | [facility] | | | | | [address] | [place] [address] | | | | | [facility] | | | | | | Mailcode: [id number] | | | | | | [facility] | | | | | | Building [place], | | | | | | [place] [address] | | | | | | [phone] | | | +--------+ + + + [...]
--- OUTSIDE RECORDS SUMMARY | ~2019-01-22 | XMS | Encounter Summary ---
Demographics + + + | Address | [address] | | | [place] [address] | + + + | Home Phone [...] [place] | | | | | [address] | | + + + + + Care Team Providers + +------+ + | Care Visual Effects Artist Name | Role | Phone | + [...] NEPHROLOGY [address] | MD [address] | | | | | [address] | [address] [place] | | | | | [place], [place] | [place] [address] | | | | | [address] | [phone] | | | | | [phone] | | | +--------+ + + + [...] [place], | | | | | | [place] [address] | | | | | | [phone] | | | | | | | [...]
--- OUTSIDE RECORDS SUMMARY | ~2019-01-22 | XMS | Encounter Summary ---
Demographics + + + | Address | [address] | | | [place] [address] | + + + | Home Phone | | + + + | Preferred Language | Unknown | + + + | Marital Status | | + + + | Muslim Affiliation | NRP | + + + | Race | White | + + + | Ethnic Group | Not or | + + + Author + + + | Author | [facility] | + + + | Organization | [facility] | + + + | Address | Unknown | + + + | Phone | Unavailable | + + + Support + + + + + | Name | Relationship | Address | Phone | + + + + + | [place] Will | ECON | [address] | | | | | [place] [address] | | + + + + + Care Team Providers + +------+ + | Care Fiberglass Dowel Drawing Operator Name | Role | Phone | [...] | | | 2017 | Event | [facility] | MD [address] [facility] | | | | | Admitting Desk | [facility] | | | | | Located on the | [place], [place] | | | | | [address] | [address] | | | | | [facility] | [phone] | | | | | [place], [place] | | | | | | [address] | | | +--------+ + + + [...] 03/21/17; 1301 | Monalisa Mendoza | [place] Mtata RN | | IV | | ALFONSO [...] 12:01 | | | | | Starting [facility] 03/19/17 at 1201, | | PM PDT | | | | | Until [facility] 03/19/17 at 1244 | | | | | | + +-------+ +---------+---+---+ +---+---+ | | | +---+---+ + +---------+ + +--------+---+ | propofol (DIPRIVAN) injection | New Bag | 03/19/20 | 30 | 20.34 | | | INTRAPROCEDURE CONTINUOUS PRN, | | 17 9:26 | mcg/kg/m | mL/hr | | | Starting [facility] 03/19/17 at 0926, | | AM PDT | in | | | | Until [facility] 03/19/17 at 1244 | | | [...]
--- OUTSIDE RECORDS SUMMARY | ~2019-01-22 | XMS | Encounter Summary ---
Demographics + + + | Address | [address] | | | [place] [address] | + + + | Home Phone | | + + + | Preferred Language | Unknown | + + + | Marital Status | | + + + | Hinduism Affiliation | NRP | + + + | Race | White | + + + | Ethnic Group | Not or | + + + Author + + + | Author | [facility] | + + + | Organization | [facility] | + + + | Address | Unknown | + + + | Phone | Unavailable | + + + Support + + + + + | Name | Relationship | Address | Phone | + + + + + | Venice Mckeon | ECON | [address] | | | | | [place] [address] | | + + + + + Care Team Providers + +------+ + | Care Information Technology Account Manager Name | Role | Phone [...] | | | | | involving | [place], [place] | | | | | | left main | [address] | | | | | | coronary | Phone: | | | | | | artery (HCC) | [phone] | | | | | | Procedures | Fax: | | | | | | | [phone] | | | | | | OCCUPATIONAL [...] | | | | elevation | [address] [facility] | | | | | | myocardial | [address] | | | | | | infarction | Rd | | | | | | involving | [place], [place] | | | | | | left main | [address] | | | | | | coronary | Phone: | | | | | | artery (HCC) | [phone] | | | | | | Procedures | Fax: | | | | | | PHYSICAL | [phone] | | | | | | THERAPY [...] REHAB - [facility] | [address] | [address] | | | | | | [address] | [place], | | | | | | [place], [place] | [place] [address] | | | | | | [address] | Phone: | | | | | | Phone: | [phone] | | | | | | [phone] | Fax: | | | | | | Fax: | [phone] | | | | | | [phone] | | +--------+--------+ + + + + [...] | | | | | Ave | [place], | | | | | | [place], [place] | [place] [address] | | | | | | [address] | Phone: | | | | | | Phone: | [phone] | | | | | | [phone] | Fax: | | | | | | Fax: | [phone] | | | | | | [phone] | | +--------+--------+ + + + + [...] | | | 04/02/ | | HOSPITAL [place], | [place], [place] | | | 2016 | | [place] [address] | [address] | | | | | [phone] | [phone] | | | | | | | | | | | | Rolly [facility], | | | | | | [address] | | | | | | [address] [place], [place] | | | | | | [address] | | | | | | [phone] | | | | | | | | | | | | Terry Ochoa MD | | | | | | [address] | | | | | | [place], [place] | | | | | | [address] | | | | | | [phone] | | | | | | | | | | | | Monika Cooper, | | | | | | Rehana Downey MD,MPH [address] | | | | [address] | | | | | | [address] [place], [place] | | | | | | [address] | | | | | | [phone] | | | | | | | | | | | | Ariana Bose, | | | | | | DO [address] | | | | | | [address] | | | | | | [place], [place] | | | | | | [address] | | | | | | [phone] | | | | | | | | | | | | Aria Rojas MD | | | | | | [address] | | | | | | [place], | | | | | | [place] [address] | | | | | | [phone] | | | | | | | [...] 2:26 PM PDT CLINICAL HOSPITALIST DISCHARGE SUMMARY [facility] Discharging Provider: Aria Rojas MD Discharging Attending [...] follow up ludmila miller with a local welding machine operator friction in [place]. #Acute cardiogenic shock in the setting ofSTEMI [...] 44 to 32 during first day at [facility] , with addition decline to 24 [...] (noted on o utside records). Patient on [place] 10/325 q8 as outpatient. Was receiving scheduled [...] then take 7.5 mg (one and one-h long term tablets) daily starting 04/03/2017 Indications: JAVON thrombus, [...] Fax Number [facility] [address] [place] [address] [phone] Medina Roger RN 04/02/2017 11:31 Medina Roger RN, 04/02/2017 11:28 AM: Spoke with Latricia, 7 day auth # [id number] has been provided. Contacted Tanisha at facility , arranging anticipated medicaid transport by stretcher at 2 pm today. Spoke with patient and souse concerning dc; they are both in agreement. Medina Roger, RN, 04/02/2017 9:20 AM: Contacted Latriciabettina Landry [phone] referencing auth# for SNF placement. Medina Roger RN, 04/01/2017 11:42 AM: Spoke with Malathi [phone], at facility admissions. Patient is accepted to facility. Prov ided information for information overlock operator with [employer] Latricia Landry [phone], Tanisha greco ill pursue auth and get back to me. F&MS working with patient and family to add Medicaid ser vices to benefits. When added patient will have travel benefit. CM contacted Shahab Holman re [employer] training. Tamia Van, RN, 03/30/2017 1:21 PM: Received VM from Emily Terrell CM with [facility] to send referral to this location . Referral made, awaiting response. Follow Up: Schedule the following appointment(s) when you get home Follow up with [facility] . Specialties: [facility], [facility] Contact information [address] [place] [id number] Follow up with LAUREN CHESTER MD. Go on 04/07/2017. Specialty: Cardiology Why: at 8:30 AM to establish Cardiology follow up Contact information [facility] [address] [address] Aria Rojas MD Division of Hospital Medicine [facility] I spent 60 minutes on discharge activities on the day of discharge, including counseling of the patient and his regarding his discharge plan and in coordination of care on the ga rd with nursing, pharmacy, and Heart Failure.Electronically [...] and chronic pain who was transferred to [facility] on 03/15 s/p STEMI with cardiogeni [...] will need Life Vest follow up with welding machine operator friction in [place] on discharge - appr eciate cardiology assistance [...] hematoma, but possibly some candidal infection/intertrigo. On [place] 10/325 Q8H as an outp atient. -Continue [...] 44 to 32 during first day at [facility], with addition decline to 24 th [...] MD Division of Hospital Medicine [facility] Pager [phone] I spent 36 minutes on the patient encounter today, >50% in counseling of the patient on the above plan of care and in coordination of care on the arizmendi with nursing. Aira Reeves MD - 4:14 PM PDT HOSPITALIST [...] and chronic pain who was transferred to [facility] on 03/15 s/p STEMI with cardiogeni [...] will need Life Vest follow up with welding machine operator friction in [place] on discharge - appr iate cardiology assistance [...] hematoma, but possibly some candidal infection/interrigo. On [place] 10/ Q8H as an outpa tient. -Continue [...] discharge. -CM looking for skilled placement in [place] near patient's home; appreciate assistance At risk for malnutrition Very little PO intake but reportedly improving. Previously had dobhoff feeding tube in the CVICU.Nutrition assistance appreciated. -Calorie count ongoing -Encouraging PO intake Normocytic anemia Hct dropped abruptly from 44 to 32 during first day at [facility], with addition decline to 24 th [...] MD Division of Hospital Medicine [facility] [place] Pager [phone] I spent 36 minutes on the patient encounter today, >50% in counseling of the patient's on the above plan of care and in coordination of care on the arizmendi with nursing and Heart Fa ilure. Ariana Ivy DO - 03/30/2017 5:49 PM PDT CLINICAL HOSPITALIST SERVICE PROGRESS NOTE PATIENT'S NAME/MRN: Ron Mckeon/[id number] HOSPITAL DAY: #15 24-HOUR EVENTS & SUBJECTIVE: -patient complained of typical anginal chest pain and had STEMI code last night, anterior S T elevation on serial EKGs, given 325mg ASA, started on heparin drip (had been turned off fo r JAVON thrombus yesterday afternoon with warfarin therapeutic), patient went to the slab depiler operator -on angiography, interventionalists noted "patent stent traversing [...] 7.5 mg, 7.5 mg, oral, QPM, Ariana [place], OBJECTIVE: Last Vitals: BP 101/56 | Pulse [...] daily - Patient will follow up with welding machine operator friction in [place] on discharge; appreciate cardiolo adriana assistance with [...] stenosis (noted on o utside records, on [place] q8 as outpatient) Improved today -continue oxycodone [...] 44 to 32 during first day at [facility] , with addition decline to 24 [...] assistance Barriers for DC: delivery/approval of lifevest, bed Ariana Bose DO Coin Rolling Machine Operatorsurface hydrologist Clinical Hospitalist and Medicine Teaching Service Division of Hospital Medicine [facility] [place] Pager [phone] [facility] DEPARTMENT: Hosp- [id number] Place of Service: Date of Service: 03/26/2017 CSN: [id number] Modifiers:GC Resident Involved: Yes Suggested CPT: 12347 Subsequent Visit Detailed/High complexity 35 min Cristi [...] given continued elevated Tn, patient's significant recent OH, we activated the slab depiler operator. Patient received 325 mg ASA at bedside [...] Referring Provider: No Referring Provider Per Patient Field Enumerator Staff: Katarina Ngo M.D. Procedure(s): Coronary Angiography [...] None Complications: None Hemostasis: Manual compression in slab depiler operator. Site: [facility] Recommendations: Patient Status: Inpatient Usual post cath care. Ariana Ivy D O - 03/29/2017 9:30 AM PDT CLINICAL HOSPITALIST SERVICE PROGRESS NOTE PATIENT'S NAME/MRN: Ron Mckeon/[id number] HOSPITAL DAY: #14 24-HOUR EVENTS & SUBJECTIVE: [...] stenosis (noted on o utside records, on [place] 10 q8 as outpatient) -continue oxycodone 10mg [...] 44 to 32 during first day at [facility] , with addition decline to 24 [...] arm, midline left arm Ariana Bose DO Coin Rolling Machine Operatorsurface hydrologist Clinical Hospitalist and Medicine Teaching Service Division of Hospital Medicine [facility] Pager [phone] [facility] DEPARTMENT: Hosp- [id number] Place of Service: - Date of Service: 03/26/2017 CSN: [id number] Modifiers:GC Resident Involved: Yes Suggested CPT: 77088 Subsequent Visit Detailed/High complexity 35 min Ariana Ivy DO - 03/28/2017 8: 06 AM PDT CLINICAL HOSPITALIST SERVICE PROGRESS NOTE PATIENT'S NAME/MRN: Ron Mckeon/[id number] HOSPITAL DAY: #13 24-HOUR EVENTS & SUBJECTIVE: [...] stenosis (noted on o utside records, on [place] q8 as outpatient) Improving L groin pain [...] 44 to 32 during first day at [facility] , with addition decline to 24 [...] arm, midline left arm Ariana Bose DO Coin Rolling Machine Operatorsurface hydrologist Clinical Hospitalist and Medicine Teaching Service Division of Hospital Medicine [facility] Pager [phone] [facility] DEPARTMENT: Hosp- [id number] Place of Service: - Date of Service: 03/26/2017 CSN: [id number] Modifiers:GC Resident Involved: Yes Suggested CPT: 50589 Subsequent Visit Detailed/High complexity 35 min Ariana [...] tablet 20 mg, 20 mg, oral, BID, Jete Ramírez MD, 20 mg at 03/26/17 214 [...] 44 to 32 during first day at [facility] , with addition decline to 24 [...] arm, midline left arm Ariana Bose DO Coin Rolling Machine Operatorsurface hydrologist Clinical Hospitalist and Medicine Teaching Service Division of Hospital Medicine [facility] Pager [phone] [facility] DEPARTMENT: Hosp- [id number] Place of Service: - Date of Service: 03/26/2017 CSN: [id number] Modifiers:GC Resident Involved: Yes Suggested CPT: 92901 Subsequent Visit Detailed/High complexity 35 min Chapis [...] requiring IABP (removed 03/16/17) and pressors (CHANG bourgeosi). ECMO started on arrival. He was rapidly [...] 44 to 32 during first day at [facility] , with addition decline to 24 [...] arm, midline left arm Ariana Bose DO Coin Rolling Machine Operatorsurface hydrologist Clinical Hospitalist and Medicine Teaching Service Division of [facility] Medicine [facility] Pager [phone] [facility] DEPARTMENT: Hosp- [id number] Place of Service: - Date of Service: 03/26/2017 CSN: [id number] Modifiers:GC Resident Involved: Yes Suggested CPT: 23466 Subsequent Visit Detailed/High complexity 35 min Wan Cano MD - 03/25/2017 3:07 PM PDT . Cardiovascular Intensive Care Unit Attending Progress Note CVICU D2 Assigned #[id number] ICU Admission Reason Most Recent Value ICU [...] artery. ANY X2 placed in outs surinder slab depiler operator along with IABP. Arrived in cardiogenic shock, [...] proactive electrolyte replacement * Heparin infusions for JAOVN thrombus * Clopidogrel / Atorvastatin / Metoprolol [...] Pager Mellisa Haji MD Admitting Provider Cardiology 86639 Zelalem Del Toro MD ICU PM Attending Anesthesiology 58234 Code Status Code Status Full Code The Advanced Care Note for this patient can be found under the notes tab in chart review. Quality section Reardon necessity reviewed: Hourly/Accurate measurement of urinary output for clinical manage ment of critically ill patients Wan Deleon MD, JOHN, ERVIN Cardiovascular Intensive Care Unit [address] [place], [place] [address] I have spent a total of 38 [...] xceptions/additions as noted. Date of Service: 03/25/2017 [facility] DEPARTMENT: ANE ICU CARDIAC Place of Service:- Inpatient CSN: [id number] Suggested Modifier: GC - Resident Involved Suggested CPT: TO AIRFREIGHT OPERATIONS AGENT Jose Ramon Khan MD - 03/24/2017 10:54 AM PDT . Cardiovascular Intensive Care Unit Team Progress Note CVICU D2 Assigned #[id number] ICU Admission Reason Most Recent Value ICU [...] artery. ANY X2 placed in outs surinder slab depiler operator along with IABP. Arrived in cardiogenic shock, [...] & Plan Patient went into VFib during slab depiler operator procedure at [facility]. Was shocked 17 times Targeted temperature [...] edema. Patient was difficult intubation at outside slab depiler operator. -secretions improving, cough strong -s/p 7 days [...] Pager Mellisa Haji MD Admitting Provider Cardiology 70643 Zelalem Del Toro MD ICU PM Attending Anesthesiology 20450 The Advanced Care Note for this patient [...] Ramon Alvarado MD Author:Jose Ramon Alvarado MD [address] [address] [place] [id number] signed by Jose Ramon Alvarado MD at 03/24/2017 11:00 AM Wan Cano MD - 03/24/2017 9:47 AM PDTFormatting of this note might be diff erent from the original. Cardiovascular Intensive Care Unit Attending Progress Note CVICU D2 Assigned #[id number] ICU Admission Reason Most Recent Value ICU [...] artery. ANY X2 placed in outs surinder slab depiler operator along with IABP. Arrived in cardiogenic shock, [...] Pager Mellisa Haji MD Admitting Provider Cardiology 71764 Zelalem Del Toro MD ICU PM Attending Anesthesiology 96891 Code Status Code Status Full Code The Advanced Care Note for this patient can be found under the notes tab in chart review. Quality section Reardon necessity reviewed: Hourly/Accurate measurement of urinary output for clinical manage ment of critically ill patients Wan Deleon MD, JOHN, ERVIN Cardiovascular Intensive Care Unit [address] [place] [address] I have spent a total of 42 [...] xceptions/additions as noted. Date of Service: 03/24/2017 [facility] DEPARTMENT: [facility] ICU CARDIAC Place of Service:- Inpatient CSN: [id number] Suggested Modifier: GC - Resident Involved Suggested CPT: TO AIRFREIGHT OPERATIONS AGENT Author:Wan Deleon Md, [address] [id number] signed by Wan Deleon MD at 03/24/2017 9:49 AM Tamia De La Paz PA-C - 03/23/2017 11:54 PM PDTFormatting of this note might be diff erent from the original. Cardiovascular Intensive Care Unit Clinical Update Note Team: D2 Team Pager: [phone] Attending: Katey Pt Name: Ron Mckeon ID: Abbreviated HPI Abbreviated HPI / Daily Assessment Ron Mckeon is a 61 year old man with acute cardiogenic shock in the setting of acu te STEMI from thrombosed left main coronary artery. Initially had lesion in proximal LAD and distal LM, but then acutely thrombosed his left main coronary artery. ANY X2 placed in outs surinder slab depiler operator along with IABP. Arrived in cardiogenic shock, [...] Unit Team Progress Note CVICU D2 Assigned #[id number] ICU Admission Reason Most Recent Value ICU [...] artery. ANY X2 placed in outs surinder slab depiler operator along with IABP. Arrived in cardiogenic shock, [...] dc'd 03/23 STEMI (ST elevation myocardial infarction) ([facility]) Yes Overview Xience Alpine 3.0 mm X [...] & Plan Patient went into VFib during slab depiler operator procedure at [facility]. Was shocked 17 times Targeted temperature [...] edema. Patient was difficult intubation at outside slab depiler operator. -fevering nightly, cultures negative, WBC stable -secretions [...] Pager Mellisa Haji MD Admitting Provider Cardiology 93422 The Advanced Care Note for this patient [...] Ramon Alvarado MD Author:Jose Ramon Alvarado MD [address] [id number] signed by Jose Ramon Alvarado MD at 03/23/2017 11:41 AM PDTWan Deleon MD - 03/23/2017 9:51 AM PDTFormatting of this note might be diff erent from the original. Cardiovascular Intensive Care Unit Attending Progress Note CVICU D2 Assigned #[id number] ICU Admission Reason Most Recent Value ICU [...] artery. ANY X2 placed in outs surinder slab depiler operator along with IABP. Arrived in cardiogenic shock, [...] Pager Mellisa Haji MD Admitting Provider Cardiology 70048 Code Status Code Status Full Code The Advanced Care Note for this patient can be found under the notes tab in chart review. Quality section A-Line necessity reviewed: Plan to DC today Reardon necessity reviewed: Hourly/Accurate measurement of urinary output for clinical manage ment of critically ill patients Currently at risk for: delirium, stroke, OH, arrythmia, tamponade, PE, respiratory failure, ARDS, aspiration, AYLIN / ARF, coagulopathy, DVT, stress ulcers, sepsis, BONIFACIO, electrolyte per turbations, malnutrition, deconditioning and decubiti. Wan Deleon MD, JOHN, ERVIN Cardiovascular Intensive Care Unit [facility] [place] [address] I have spent a total of 44 [...] xceptions/additions as noted. Date of Service: 03/23/2017 [facility] DEPARTMENT: [facility] ICU CARDIAC Place of Service:- Inpatient CSN: [id number] Suggested Modifier: GC - Resident Involved Suggested CPT: TO AIRFREIGHT OPERATIONS AGENT Tamia De La Paz PA-C - 03/22/2017 7:58 PM PDT . Cardiovascular Intensive Care Unit Clinical Update Note Team: D2 Team Pager: [phone] Attending: Abdulaziz Merrill Name: Ron Mckeon ID: [...] Unit Attending Progress Note CVICU D2 Assigned #[id number] ICU Admission Reason Most Recent Value ICU [...] long tobacco abuse history, presenting with acute OH and STEMI, resu ltant cardiogenic shock refractory [...] Mellisa Haji MD Admitting Provider Cardiology 63807 Code Status Code Status Full Code Quality section A-Line necessity reviewed: Joli-ta-wnqa blood pressure monitoring Reardon necessity reviewed: Hourly/Accurate [...] Date of Service: 03/22/2017 Author:Anurag Ashby MD [address] [id number] signed by Anurag Ashby MD at 03/22/2017 11:07 AM P Macho Sellers MD - 03/22/2017 11:00 AM PDT Cardiovascular Intensive Care Unit Team Progress Note CVICU D2 Assigned #[id number] ICU Admission Reason Most Recent Value ICU [...] & Plan Patient went into VFib during slab depiler operator procedure at [facility]. Was shocked 17 times Targeted temperature [...] edema. Patient was difficult intubation at outside slab depiler operator. -vanc zosyn stopped 03/17 -fever 38.3 last [...] Pager Mellisa Haji MD Admitting Provider Cardiology 82594 This patient does not have an Advanced Care Note for this Admission. Please use the Goal of care section of your ICU navigator to document the advanced care discussion. Quality section A-Line necessity reviewed: Ciki-mb-tilz blood pressure monitoring Reardon necessity reviewed: Hourly/Accurate measurement of urinary output for clinical manage ment of critically ill patients FAST HUG Feeding: Tube Feeds: Replete @ 55 mL/hr Analgesia: APAP, hydromorphone PRN Sedation: N/A Thromboprophylaxis: Heparin infusion Head of Bed: Head of Bed >30 degrees Ulcer Prophylaxis: Famotidine Glycemic Control: insulin infusion Created by Macho Gaytan MD Author:Macho Gaytan MD [address] [address]Ytxpbavtkunggl signed by Macho Gaytan MD at 03/23/2017 12:35 PM PDTT Tamia leon PA-C - 03/21/2017 7:02 PM PDTFormatting of this note might be different f rom the original. Cardiovascular Intensive Care Unit Clinical Update Note Team: D2 Team Pager: [phone] Attending: Abdulaziz Merrill Name: Ron Mckeon ID: [...] Opens eyes, nods head. Follows commands for utility aircrewman and Plan: Hospital Problems Priority POA Head/Neck [...] data and the recent imaging availabl e. EDIUN Alas PA-C Macho Perkins MD - 03/21/2017 1:37 PM PDT Cardiovascular Intensive Care Unit Team Progress Note CVICU D2 Assigned #[id number] ICU Admission Reason Most Recent Value ICU [...] & Plan Patient went into VFib during slab depiler operator procedure at [facility]. Was shocked 17 times Targeted temperature [...] edema. Patient was difficult intubation at outside slab depiler operator. -vanc zosyn stopped 03/17 -fever 38.3 last [...] Pager Mellisa Haji MD Admitting Provider Cardiology 54965 This patient does not have an Advanced Care Note for this Admission. Please use the Goal of care section of your ICU navigator to document the advanced care discussion. Quality section A-Line necessity reviewed: Sqpd-fm-ettu blood pressure monitoring CVC necessity reviewed: Hemodynamic [...] by Macho Gaytan MD Author:Macho Gaytan MD [address] [address]Hipoatkairsqbs signed by Macho Gaytan MD at 03/21/2017 1:43 PM Anurag Paredes MD - 03/21/2017 12:22 PM PDT Cardiovascular Intensive Care Unit Attending Progress Note CVICU D2 Assigned #[id number] ICU Admission Reason Most Recent Value ICU [...] long tobacco abuse history, presenting with acute OH and STEMI, resu ltant cardiogenic shock refractory [...] Pager Mellisa Haji MD Admitting Provider Cardiology 21258 Code Status Code Status Full Code Quality section A-Line necessity reviewed: Lcku-cc-oxto blood pressure monitoring CVC necessity reviewed: Plan [...] Date of Service: 03/21/2017 Author:Anurag Ashby MD [address] [address] [place] [id number] signed by Anurag Ashby MD at 03/21/2017 12:22 PM P Jose Ramon Coburn MD - 03/20/2017 12:36 PM PDTFormatting of this note might be differen t from the original. Cardiovascular Intensive Care Unit Team Progress Note CVICU D2 Assigned #[id number] ICU Admission Reason Most Recent Value ICU [...] & Plan Patient went into VFib during slab depiler operator procedure at [facility]. Was shocked 17 times Targeted temperature [...] edema. Patient was difficult intubation at outside slab depiler operator. -vanc zosyn stopped 03/17 -fever 38.3 last [...] Pager Mellisa Haji MD Admitting Provider Cardiology 12030 Quality section A-Line necessity reviewed: Cbkp-uf-jspg blood pressure monitoring CVC necessity reviewed: Hemodynamic [...] Ramon Alvarado MD Author:Jose Ramon Alvarado MD [address] [address]Eczhbtkgztcmle signed by Jose Ramon Alvarado MD at 03/20/2017 12:49 PM PDTMoulton, Anurag Soni MD - 03/20/2017 12:18 PM PDTFormatting of this note might be differen t from the original. Cardiovascular Intensive Care Unit Attending Progress Note CVICU D2 Assigned #[id number] ICU Admission Reason Most Recent Value ICU [...] long tobacco abuse history, presenting with acute OH and STEMI, resu ltant cardiogenic shock refractory [...] Pager Mellisa Haji MD Admitting Provider Cardiology 38457 Code Status Code Status Full Code Quality section A-Line necessity reviewed: Wsbf-az-fvit blood pressure monitoring CVC necessity reviewed: Medication [...] Date of Service: 03/20/2017 Author:Anurag Ashby MD [address] [address] [place] [address]Ivmycesitorzfv signed by Anurag Ashby MD at 03/20/2017 12:18 PM P Raul Conte MD - 03/19/2017 11:01 PM PDTFormatting of this note might be different fro m the original. Cardiovascular Intensive Care Unit Attending Progress Note CVICU D2 Assigned #[id number] ICU Admission Reason Most Recent Value ICU [...] long tobacco abuse history, presenting with acute OH and STEMI, resu ltant cardiogenic shock refractory [...] Pager Mellisa Haji MD Admitting Provider Cardiology 52761 Code Status Code Status Full Code Quality section A-Line necessity reviewed: Aqqd-bf-cmve blood pressure monitoring CVC necessity reviewed: Hemodynamic [...] Date of Service: 03/19/2017 Author:Raul Wei MD [place] [address] Jose Ramon Rodriguez MD - 03/19/2017 4:49 PM PDT Cardiovascular Intensive Care Unit Team Progress Note CVICU D2 Assigned #[id number] ICU Admission Reason Most Recent Value ICU [...] & Plan Patient went into VFib during slab depiler operator procedure at [facility]. Was shocked 17 times Targeted temperature [...] edema. Patient was difficult intubation at outside slab depiler operator. -vanc zosyn stopped 03/17 -fever 38.3 03/17 [...] team members Provider Role Specialty Pager Mellisa aHji MD Admitting Provider Cardiology 94961 Quality section A-Line necessity reviewed: Jgfc-yw-omsm blood pressure monitoring CVC necessity reviewed: Hemodynamic monitoring Reardon necessity reviewed: Hourly/Accurate measurement of urinary output for clinical manage ment of critically ill patients FAST HUG Feeding: TFs Analgesia: multimodal Sedation: propofol Thromboprophylaxis: Heparin infusion Head of Bed: Head of Bed >30 degrees Ulcer Prophylaxis: protonix Glycemic Control: insulin infusion Created by Jose Ramon Alvarado MD Author:Jose Ramon Alvarado MD [address] [address]Xdovpmtjoklnsi signed by Jose Ramon Alvarado MD at 03/19/2017 4:54 PM Lee Fernandez MD - 03/19/2017 2:22 PM PDTFormatting of this note might be different fr om the original. . Extracorporeal Life Support Service Daily Progress Note Pager #[phone] Type: Veno-Arterial (CPT 52757 or 62456) Date of insertion: 03/15/2017 Diagnosis:Cardiogenic shock Dressing [...] Unit Attending Progress Note CVICU D2 Assigned #[id number] ICU Admission Reason Most Recent Value ICU [...] long tobacco abuse history, presenting with acute OH and STEMI, resu ltant cardiogenic shock refractory [...] Pager Mellisa Haji MD Admitting Provider Cardiology 68012 Code Status Code Status Full Code Quality section A-Line necessity reviewed: Rhgj-bv-vxfw blood pressure monitoring CVC necessity reviewed: Medication [...] Date of Service: 03/19/2017 Author:Anurag Ashby MD [address] [address]Nhpmxnnhqalvat signed by Anurag Ashby MD at 03/19/2017 2:17 PM P Jose Ramon Coburn MD - 03/18/2017 12:56 PM PDTFormatting of this note might be differen t from the original. Cardiovascular Intensive Care Unit Team Progress Note CVICU D2 Assigned #[id number] ICU Admission Reason Most Recent Value ICU [...] (obdulio) pm STEMI (ST elevation myocardial infarction) ([facility]) Yes Overview Xience Alpine 3.0 mm X [...] & Plan Patient went into VFib during slab depiler operator procedure at [facility]. Was shocked 17 times Targeted temperature [...] edema. Patient was difficult intubation at outside slab depiler operator. -vanc zosyn stopped today Abnormal CK Unknown [...] Pager Mellisa Haji MD Admitting Provider Cardiology 85863 Quality section A-Line necessity reviewed: Kqia-xr-dpfq blood pressure monitoring CVC necessity reviewed: Hemodynamic monitoring Reardon necessity reviewed: Hourly/Accurate measurement of urinary output for clinical manage ment of critically ill patients FAST HUG Feeding: trickle feeds Analgesia: multimodal Sedation: propofol Thromboprophylaxis: Heparin infusion Head of Bed: Head of Bed >30 degrees Ulcer Prophylaxis: nexium Glycemic Control: insulin infusion Created by Jose Ramon Alvarado MD Author:Jose Ramon Alvarado MD [address] [phone] signed by Jose Ramon Alvarado MD at 03/18/2017 1:27 PM PDTMoulton, Anurag Soni MD - 03/18/2017 11:56 AM PDTFormatting of this note might be differen t from the original. Cardiovascular Intensive Care Unit Attending Progress Note CVICU D2 Assigned #[id number] ICU Admission Reason Most Recent Value ICU [...] long tobacco abuse history, presenting with acute OH and STEMI, resu ltant cardiogenic shock refractory [...] Pager Mellisa Haji MD Admitting Provider Cardiology 85199 Code Status Code Status Full Code Quality section A-Line necessity reviewed: Qmtg-rp-kohw blood pressure monitoring CVC necessity reviewed: Medication [...] Date of Service: 03/18/2017 Author:Anurag Ashby MD [address] [address]Jgjibqowisxxtg signed by Anurag Ashby MD at 03/18/2017 11:59 AM Lee Prince MD - 03/18/2017 11:37 AM PDTFormatting of this note might be different from nissa suh original. . Extracorporeal Life Support Service Daily Progress Note Pager #[phone] Type: Veno-Arterial (CPT 76156 or 8[address]) Diagnosis:Cardiogenic shock Dressing changed: no Dressing Changed [...] Life Support Service Daily Progress Note Pager #[phone] Type: Veno-Arterial (CPT 94053 or 325[address]) Date of insertion: 03/15/2017 Diagnosis:Cardiogenic shock Dressing [...] Unit Attending Progress Note CVICU D2 Assigned #[id number] ICU Admission Reason Most Recent Value ICU [...] long tobacco abuse history, presenting with acute OH and STEMI, resu ltant cardiogenic shock refractory [...] Pager Mellisa Haji MD Admitting Provider Cardiology 23050 Quality section A-Line necessity reviewed: Eand-ki-wlqn blood pressure monitoring CVC necessity reviewed: Rapid [...] Date of Service: 03/17/2017 Author:Raul Wei MD [place] [address] [place] [address]Zvoixiqwmrlfzp signed by Raul Wei MD at 03/17/2017 9:20 PM PD Anurag Kaba MD - 03/17/2017 1:58 PM PDTFormatting of this note might be different fro m the original. Cardiovascular Intensive Care Unit Attending Progress Note CVICU D2 Assigned #[id number] ICU Admission Reason Most Recent Value ICU [...] long tobacco abuse history, presenting with acute OH and STEMI, resu ltant cardiogenic shock refractory [...] Pager Mellisa Haji MD Admitting Provider Cardiology 97795 Quality section A-Line necessity reviewed: Znrv-ri-zzpk blood pressure monitoring CVC necessity reviewed: Medication [...] Date of Service: 03/17/2017 Author:Anurag Ashby MD [address] [phone] signed by Anurag Ashby MD at 03/17/2017 2:00 PM P Mauri Calderon - 03/17/2017 1:01 PM PDTTransthoracic echocardiogram completed. Final r eport to follow. Teddy Ibrahim DO, MS - 03/17/2017 10:00 AM PDT Cardiovascular Intensive Care Unit Team Progress Note CVICU D2 Assigned #[id number] ICU Admission Reason Most Recent Value ICU [...] & Plan Patient went into VFib during slab depiler operator procedure at [facility]. Was shocked 17 times Targeted temperature [...] edema. Patient was difficult intubation at outside slab depiler operator. -vanc zosyn stopped today Abnormal CK Unknown [...] Pager Mellisa Haji MD Admitting Provider Cardiology 03177 This patient does not have an Advanced Care Note for this Admission. Please use the Goal of care section of your ICU navigator to document the advanced care discussion. Quality section A-Line necessity reviewed: Zvig-ux-okfm blood pressure monitoring CVC necessity reviewed: Hemodynamic monitoring Reardon necessity reviewed: Hourly/Accurate measurement of urinary output for clinical manage ment of critically ill patients FAST HUG Feeding: Tube Feeds Analgesia: apap, oxy, hm Sedation: propofol Thromboprophylaxis: Heparin infusion Head of Bed: Head of Bed Flat Ulcer Prophylaxis: Pantoprazole Glycemic Control: insulin infusion Created by Teddy Kee Do, MS [facility] DEPARTMENT: [facility] ICU CARDIAC Place of Service:- Inpatient CSN: [id number] Suggested Modifier: GC - Resident Involved Suggested CPT: TO AIRFREIGHT OPERATIONS AGENT Author:Teddy Kee Do, MS [address] [address]Kvwvzufsxiakjp signed by Teddy Kee DO, MS at 03/17/2017 6:35 PM Raul Hanson MD - 03/16/2017 7:38 PM PDT Cardiovascular Intensive Care Unit Attending Progress Note CVICU D2 Assigned #[id number] ICU Admission Reason Most Recent Value ICU [...] long tobacco abuse history, presenting with acute OH and STEMI, resu ltant cardiogenic shock refractory [...] Pager Mellisa Haji MD Admitting Provider Cardiology 24213 Quality section A-Line necessity reviewed: Uqnr-sj-othc blood pressure monitoring CVC necessity reviewed: Rapid [...] Date of Service: 03/16/2017 Author:Raul Wei MD [address] [address]Bosjekhjlrzdzb signed by Raul Wei MD at 03/17/2017 11:03 AM PD Jose Ramon Rodriguez MD - 03/16/2017 5:15 PM PDT Cardiovascular Intensive Care Unit Team Progress Note CVICU D2 Assigned #[id number] ICU Admission Reason Most Recent Value ICU [...] & Plan Patient went into VFib during slab depiler operator procedure at [facility]. Was shocked 17 times Now on [...] edema. Patient was difficult intubation at outside slab depiler operator. -bridget retana for now Physical Exam vitals [...] Pager Mellisa Haji MD Admitting Provider Cardiology 66916 Quality section A-Line necessity reviewed: Pmsa-qk-hxfk blood pressure monitoring CVC necessity reviewed: Hemodynamic [...] Ramon Alvarado MD Author:Jose Ramon Alvarado MD [place] [address] [place] [address]Oveexijhpmfppe signed by Jose Ramon Alvarado MD at [...] Unit Attending Progress Note CVICU D2 Assigned #[id number] ICU Admission Reason Most Recent Value ICU [...] ICU Day #2 after being transferred from [place] in [place] in acute cardiogenic archie ck following an anterior STEMI. Upon arrival to [facility], decision was made to go emergently [...] Pager Mellisa Haji MD Admitting Provider Cardiology 58142 Quality section A-Line necessity reviewed: Mgjq-nx-mjqv blood pressure monitoring CVC necessity reviewed: Hemodynamic [...] Date of Service: 03/16/2017 Author:Anurag Ashby MD [address] [address]Vrvnpggigpmqgq signed by Anurag Ashby MD at 03/16/2017 1:23 PM Lee Prince MD - 03/16/2017 9:41 AM PDTFormatting of this note might be different from t vikash original. . Extracorporeal Life Support Service Daily Progress Note Pager #[phone] Type: Veno-Arterial (CPT 58816 [place] [address]) Diagnosis:Cardiogenic shock Dressing changed: no Dressing Changed [...] Clinical Update Note Team: D2 Team Pager: [phone] Attending: Abdulaziz Merrill Name: Ron Mckeon ID: [...] Date of Service: 03/16/2017 Mirna Berumen PA-C [facility] DEPARTMENT: [facility] ICU CARDIAC Place of Service:- Inpatient CSN: [id number] Suggested Modifier: None Suggested CPT: TO AIRFREIGHT OPERATIONS AGENT Mirna Berumen PA-C Everardo Valladares MD - 03/15/2017 9:04 PM PDT Cardiovascular Intensive Care Unit Attending Progress Note CVICU D2 Assigned #[id number] ICU Admission Reason Most Recent Value ICU Admission reason Cardiogenic Shock filed at 03/15/2017 1531 Hospital admission dx: left anterior descending artery occlusion, needs cabg Days in ICU Days in Hospital Medical Decision Making ICU Day #1 after being transferred from [place] in [place] in acute cardiogenic archie ck following an anterior STEMI. Upon arrival to [facility], decision was made to go emergently [...] Pager Mellisa Haji MD Admitting Provider Cardiology 50862 Quality section A-Line necessity reviewed: Qgsl-ql-wmim blood pressure monitoring CVC necessity reviewed: Hemodynamic [...] and the recent imaging available. Seen with PA/MILK DRIVER Winston Cole. Please see their note for details. I reviewed the documented findings, all data and the recent imaging available. Date of Service: 03/15/2017 Author:Everardo Cintron MD [address] [address]Yaawxaenrzufel signed by Everardo Cintron MD at 03/15/2017 9:[address] - 03/15/2017 2:11 PM PDTTransthoracic echocardiogram completed. Final r eport to follow. oniPatrick genao MD,MPH - 03/15/2017 2:00 PM PDT . Extracorporeal Life Support Service Consult Service Note Pager #[phone] Date: 03/15/17 Author: Patrick Ruiz MD,MPH Consulting Attending: Mellisa Haji MD Reason for Consult: [facility] ECMO Consideration HPI: 61 year old male who presents this afternoon to [facility] in acute cardiogenic shock second maciej to STEMI / thrombosed L main coronary artery. He was transferred from [place]. His symptoms started this morning around 3am and was seen in [place], [place]. He was diagnosed w ith an anterior STEMI and transferred to the slab depiler operator in [place], [place]. He was found to h ave [...] pressors (epinephrine and dopamine). On [facility], he was in profound cardiogenic shock and hypoxic. His MAP was in the 40s. He was tach ycardic into the 150s. IABP was increased to 1:2. Past Medical History: Past Medical History: Diagnosis Date Cardiogenic shock ([facility]) 03/15/2017 Coronary artery disease 03/15/2017 Hypercholesterolemia Hypertension STEMI (ST elevation myocardial infarction) ([facility]) 03/15/2017 Tobacco use Past Surgical History: Past [...] conferring with Dr. Powell (CT Surgery), Jeet Uaglde (CVICU), and Neena Ramírez (Heart Failure), we decided that his best opportunity for MCS was VA-ECMO with the plan for cardiac recovery from cardiogenic shock. Patrick Ruiz MD, MPH auto mechanic apprentice Trauma, Critical Care & Acute Care Surgery [facility] onies, Patrick Sexton MD,MPH - 03/15/2017 1:48 PM PDT . . Extracorporeal Life Support Service Initiation Note Pager #[phone] Date of service: 03/15/2017 Author: Patrick Ruiz Md,Mph ECMO Type: Veno-Arterial (CPT 66596 [place] 15210) Oxygenation index FiO2: 100 MAP: 22 Diagnosis:Cardiogenic [...] old male who presents this afternoon to [facility] in acute cardiogenic shock secondary to [...] | + +--------+ + + + | TF-AR-MLS-HB,POC RT | Routin | 03/19/2017 | ST [...] | + +--------+ + + + | IA ECMO REV | Routin | 03/19/2017 | [...] +---+--------+ + +--------+ + + + | LR-TV-CXD-HB,POC RT | Routin | 03/19/2017 | ST [...] | + +--------+ + + + | FB-OK-FLU-HB,POC RT | Routin | 03/19/2017 | ST elevation | Results for this | | | e | 10:06 AM | myocardial | procedure are in the | | | | PDT | infarction involving | results section. | | | | | left main coronary | | | | | | artery (HCC) | | + +--------+ + + + | ZD-PB-VSK-HB,POC RT | Routin | 03/19/2017 | ST [...] | + +--------+ + + + | RY-SP-JRA-HB,POC RT | Routin | 03/17/2017 | ST [...] | + +--------+ + + + | UQ-VY-QGW-HB,POC RT | Routin | 03/16/2017 | ST [...] | + +--------+ + + + | RR-KG-RMP-HB,POC RT | Routin | 03/16/2017 | ST [...] | + +--------+ + + + | KH-GD-GZC-HB,POC RT | Routin | 03/15/2017 | ST [...] | + +--------+ + + + | EG-DO-IWQ-HB,POC RT | Routin | 03/15/2017 | ST [...] | + +--------+ + + + | ID-IQ-NER-HB,POC RT | Routin | 03/15/2017 | ST [...] Height: 175 cm Weight: 89 kgBSA: 2.05 [id number] PHYSICIAN:Katarina Ngo | | .FELLOW:Gerson Mejias M.D. [...] right coronary angiography.COMPLICATIONS:None.TECHNIQUE:Right femoral artery | | 6-Sammarinese 10 cm [place] sheath, 6-Sammarinese XB 3.5 guide catheter, 5-Sammarinese JR4 | | catheter.DESCRIPTION OF PROCEDURE:Informed consent [...] modified Seldinger technique and a | | 5-Sammarinese micropuncture system, a 6-Sammarinese 10 cm [place] sheath was placed in the right | | femoral artery. A 6-Sammarinese XB 3.5 guide catheter was inserted into the ascending aorta | | over a guidewire. The guidewire was removed. The catheter was aspirated and flushed. | | The left coronary system was selectively engaged and imaged in multiple projections. A | | 5-Sammarinese Kymberly right 4 catheter was advanced to [...] DOSE AREA | | PRODUCT: 3749 cGy [id number]:Aortic pressure 87/15, mean aortic pressure 63, heart [...] 03/30/2017 04:50:01DT: | | 03/30/2017 08:34:34Job #: [id number] | |extending from it into the LAD. [...] |YDT/MODL | | | | | | /[id number] | + + CAPILLARY BLOOD GLUCOSE (NO [...] [facility] | [address] | [place], [place] | | | JULIANN SILVA OF CARE | [address] | [address] | | | TESTS | | | [...] | + + + + + | [facility] | [address] | [place] [address] | | | SERVICES, CORE | PARK [...] | + + + + + | [facility] | [address] | [place] [address] | | | SERVICES, CORE | PARK [...] [facility] | [address] | [place] [address] | | | SERVICES, CORE | PARK [...] | | | LABORATORY | | | [place] | | | SERVICES, | | [...] | + + + + + | [facility] | [address] | [place] [address] | | | ARASH, ИРИНА | PARK [...] ranges for full anticoagulation: INR for | [facility] | | Venous Thromboembolism (2.0 - 3.0) INR INR | LABORATORY | | for most patients with mech. valves (2.5 - 3.5) INR | ИРИНА ANTOINE | + + + + + + + + | Performing | Address | City/State/Zipcode | Phone Number | | Organization | | | | + + + + + | [facility] | [address] | [place] [address] | | | ИРИНА ANTOINE | TABITHA [...] | + + + + + | [facility] | [address] | [place] [address] | | | ARASH, ИРИНА | TABITHA [...] [facility] | [address] | [place], [place] | | | JULIANN SILVA OF [facility] | [address] | [address] | | | TESTS | | | [...] [facility] | [address] | [place], [place] | | | [facility]ARE | [address] | [address] | | | TESTS | | | [...] + + + | [facility] | [address] | [place], [place] | | | [facility]O [facility] | [address] | [address] | | | TESTS | | | [...] | + + + + + | [facility] | [address] | [place] [address] | | | SERVICES, CORE | TABITHA [...] | | | LABORATORY | | | [place] | | | SERVICES, | | [...] [facility] | [address] | [place] [address] | | | SERVICES, CORE | PARK [...] [facility] | [address] | [place] [address] | | | SERVICES, CORE | PARK [...] | + + + + + | [facility] | [address] | [place] [address] | | | SERVICES, CORE | TABITHA [...] [facility] | [address] | [place], [place] | | | [facility] | [address] | [address] | | | TESTS | | | [...] [facility] | [address] | [place], [place] | | | [facility] POINT [facility] CARE | [address] | [address] | | | TESTS | | | [...] (H) | 70 - 99 mg/dL | [facility] - | | | GLUCOSE, | [...] [facility] | [address] | [place], [place] | | | JULIANN S[facility] OF [facility] | [address] | [address] | | | TESTS | | | [...] [facility] | [address] | [place], [place] | | | JULIANN SILVA OF CARE | [address] | [address] | | | TESTS | | | [...] [facility] | [address] | [place] [address] | | | SERVICES, CORE | PARK [...] | | | LABORATORY | | | [place] | | | SERVICES, | | [...] | + + + + + | [facility] | [address] | [place] [address] | | | SERVICES, ИРИНА | TABITHA [...] | + + + + + | [facility] | [address] | [place] [address] | | | ARASH, ИРИНА | TABITHA [...] [facility] | [address] | [place] [address] | | | SERVICES, CORE | TABITHA [...] | + + + + + | [facility] | [address] | [place] [address] | | | ARASH, ИРИНА | TABITHA [...] [facility] | [address] | [place], [place] | | | [facility] PO[facility] CARE | [address] | [address] | | | TESTS | | | [...] | | | LABORATORY | | | [place] | | | SERVICES, | | [...] | + + + + + | [facility] | [address] | [place] [address] | | | SERVICES, CORE | TABITHA [...] DEPT OF | [address] | [place], [place] | | | CARDIOLOGY | [address] | [address] | | + + + + + CAPILLARY BLOOD GLUCOSE (NO CHG), POC (03/30/2017 5:22 PM PDT) + +---------+ + + + | Component | Value | Ref Range | Performed | Pathologist | | | | | At | Signature | + +---------+ + + + | BLOOD | 116 (H) | 70 - 99 mg/dL | [facility] - | | | GLUCOSE, | [...] [facility] | [address] | [place], [place] | | | [facility] [place] [facility] | [address] | [address] | | | TESTS | | | [...] | | | LABORATORY | | | [place] | | | SERVICES, | | [...] | + + + + + | [facility] | [address] | [place] [address] | | | SERVICES, CORE | PARK [...] | + + + + + | [facility] | [address] | [place] [address] | | | SERVICES, CORE | PARK [...] | + +------ + | [facility] | [facility] | | [facility] Adult Echocardiography | CARDI OLOGY | | Laboratory [address] [place] [address] | | | [place] [address] Pt Name: | | | RON Chaudhary MIKE Study Date/Time 03/30/2017 / 10:44:00 | | | AMMRN: [id number] Most recent | | | prior: 03/19/17 #: [id number] No. previous | | | echos: 3DOB: 1955 61 years Heart | | | Rate: 70 bpmHeight: 68.0 in | | | Blood Pressure: 100/55 mm/HgWeight: 197.0 | | | lb Gender: | | | MBSA: 2.03 m2 Order | | | ID: [id number] Software Development Intern: Shahab Sutton | | | RDCSSonographer 2: Karly Gayle Referring Provider: Ariana | | | [facility] Location: 11KModalities Performed: 2D, Color flow, [...] Tn, | | | patient's significant recent OH, we activated the slab depiler operator. Patient | | | history has been [...] Report electronically signed by: | | | [id number] Jordon Neville MD (03/30/2017, 2:04:56 PM) Final | | | | | |Wall Scoring: | | | | | | | | |Report electronically signed by: [id number] Jordon Neville MD (03/30/2017, 2:04:56 PM) | | | | | | | | | | | | Final | | + +------ + + + | Procedure Note | + + | Interface, Cardiology Results - 03/30/2017 2:04 PM [facility] [employer] | | [facility] Echocardiography Laboratory [address] [place] [address] | | [place], [place] [address] Pt Name: RON Chaudhary | | MIKE Study Date/Time 03/30/2017 / 10:44:00 AMMRN: [id number] Most | | recent prior: 03/19/17 #: [id number] No. previous echos: 3DOB: | | 1955 61 years Heart Rate: 70 bpmHeight: 68.0 in Blood | | Pressure: 100/55 mm/HgWeight: 197.0 lb Gender: MBSA: | | 2.03 m2 Order ID: [id number] Software Development Intern: Shahab Sutton | | RDCSSonographer 2: Karly Major Provider: [facility] Location: | | 11KModalities Performed: 2D, Color [...] elevated Tn, | | patient's significant recent OH, we activated the slab depiler operator. Patient history has been | | obtained [...] Scoring: Report | | electronically signed by: [id number] Jordon Neville MD (03/30/2017, 2:04:56 PM) Final [...] | | | |Report electronically signed by: [id number] Jordon Neville MD (03/30/2017, 2:04:56 PM) | | | | | | | | Final | + + + + + + + | Performing | Address | City/State/Zipcode | Phone Number | | Organization | | | | + + + + + | [facility] | [address] | [place], [place] | | | CARDIOLOGY | [address] | [address] | | + + + + + CAPILLARY BLOOD GLUCOSE (NO CHG), POC (03/30/2017 9:08 AM PDT) + +---------+ + + + | Component | Value | Ref Range | Performed | Pathologist | | | | | At | Signature | + +---------+ + + + | BLOOD | 110 (H) | 70 - 99 mg/dL | [facility] | | | GLUCOSE, | [...] [facility] | [address] | [place], [place] | | | JULIANN SILVA OF CARE | [address] | [address] | | | TESTS | | | [...] | + + + + + | [facility] | [address] | [place] [address] | | | SERVICES, CORE | TABITHA [...] [facility] | [address] | [place], [place] | | | [facility]O [facility] | [address] | [address] | | | TESTS | | | [...] | [facility] OF | [address] | [place], [place] | | | CARDIOLOGY | [address] | [address] | | + + + + + [...] | | | LABORATORY | | | [place] | | | SERVICES, | | [...] [facility] | [address] | [place] [address] | | | SERVICES, CORE | PARK [...] | + + + + + | [facility] | [address] | [place] [address] | | | SERVICES, CORE | PARK [...] | + + + + + | [facility] | [address] | [place] [address] | | | SERVICES, CORE | TABITHA [...] OF | [address] | [place], [place] | | | CARDIOLOGY | [address] | [address] | | + + + + + [...] + + | [facility] | [address] | [place], [place] | | | CARDIOLOGY | [address] | [address] | | + + + + + [...] | + + + + + | [facility] | [address] | [place] [address] | | | SERVICES, CORE | TABITHA [...] | + + + + + | [facility] | [address] | [place] [address] | | | SERVICES, ИРИНА | TABITHA [...] [facility] | [address] | [place] [address] | | | SERVICES, CORE | TABITHA [...] | + + + + + | [facility] | [address] | [place] [address] | | | SERVICES, ИРИНА | TABITHA [...] [facility] | [address] | [place], [place] | | | JULIANN SILVA OF [facility] | [address] | [address] | | | TESTS | | | [...] [facility] | [address] | [place] [address] | | | SERVICES, CORE | PARK [...] DEPT OF | [address] | [place], [place] | | | CARDIOLOGY | [facility] | [address] | | + + + + + CAPILLARY BLOOD GLUCOSE (NO CHG), POC (03/29/2017 8:16 PM PDT) + +---------+ + + + | Component | Value | Ref Range | Performed | Pathologist | | | | | At | Signature | + +---------+ + + + | BLOOD | 105 (H) | 70 - 99 mg/dL | [facility] | | | GLUCOSE, | [...] MARIA | [address] | [place], [place] | | | R[facility]ARDO POINT OF CARE | [address] | [address] | | | TESTS | | | [...] [facility] | [address] | [place] | | | JULIANN SILVA OF [place] | [facility] | [address] | | | TESTS | | | [...] | + + + + + | [facility] | [address] | [place] [address] | | | ИРИНА ANTOINE | TABITHA [...] MARIA | [address] | [place], [place] | | | JULIANN SILVA OF [facility] | [address] | [address] | | | TESTS | | | [...] [facility] | [address] | [place] [address] | | | SERVICES, CORE | PARK [...] | | | LABORATORY | | | [place] | | | SERVICES, | | [...] | + + + + + | [facility] | [address] | [place] [address] | | | SERVICES, CORE | TABITHA [...] (H) | 0.90 - 1.20 INR | [facility] | | | | | | LABORATORY [...] [facility] | [address] | [place] [address] | | | ИРИНА ANTOINE | TABITHA [...] [facility] | [address] | [place] [address] | | | SERVICES, CORE | PARK [...] | + + + + + | [facility] | [address] | [place] [address] | | | SERVICES, CORE | TABITHA [...] | + + + + + | [facility] | [address] | [place] [address] | | | SERVICES, CORE | TABITHA [...] [facility] | [address] | [place] | | | JULIANN SILVA OF CARE | [address] | [address] | | | TESTS | | | [...] (H) | 70 - 99 mg/dL | [facility] | | | GLUCOSE, | [...] - [facility] | [address] | [place] | | | [facility] POINT OF CARE | [address] | [address] | | | TESTS | | | [...] | | | LABORATORY | | | [place] | | | SERVICES, | | [...] [facility] | [address] | [place] [address] | | | ARASH, ИРИНА | [address] [...] [facility] | [address] | [place] [address] | | | SERVICES, CORE | PARK [...] | | | LABORATORY | | | [place] | | | SERVICES, | | [...] | + + + + + | [facility] | [address] | [place] [address] | | | ARASH, ИРИНА | TABITHA [...] 93 | 70 - 99 mg/dL | [facility] | | | GLUCOSE, | [...] [facility] | [address] | [place], [place] | | | JULIANN SILVA OF CARE | [facility] | [address] | | | TESTS | | | [...] MARIA | [address] | [place], [place] | | | JULIANN SILVA OF [place] | [address] | [address] | | | TESTS | | | [...] [facility] | [address] | [place] [address] | | | ИРИНА ANTOINE | TABITHA [...] | | | LABORATORY | | | [place] | | | SERVICES, | | [...] | + + + + + | [facility] | [address] | [place] [address] | | | SERVICES, CORE | TABITHA [...] | + + + + + | [facility] | [address] | [place] [address] | | | SERVICES, ИРИНА | TABITHA [...] ranges for full anticoagulation: INR for | [facility] | | Venous Thromboembolism (2.0 - 3.0) INR INR | LABORATORY | | for most patients with mech. valves (2.5 - 3.5) INR | ИРИНА ANTOINE | + + + + + + + + | Performing | Address | City/State/Zipcode | Phone Number | | Organization | | | | + + + + + | [facility] | [address] | [place] [address] | | | SERVICES, ИРИНА | TABITHA [...] [facility] | [address] | [place] [address] | | | ARASH, ИРИНА | [address]ARK [...] [facility] | [address] | [place] | | | JULIANN SILVA OF [facility] | [address] | [address] | | | TESTS | | | [...] [facility] | [address] | [place] | | | [facility] POINT OF CARE | [address] | [address] | | | TESTS | | | [...] [facility] | [address] | [place] | | | [facility] POINT OF CARE | [address] | [address] | | | TESTS | | | [...] (H) | 70 - 99 mg/dL | [facility] | | | GLUCOSE, | | [...] [facility] | [address] | [place], [place] | | | JULIANN SILVA [facility] [place] | [address] | [address] | | | TESTS | | | [...] + | [facility] | [address] | [place] [address] | | | SERVICES, CORE | TABITHA [...] | + + + + + | [facility] | [address] | [place] [address] | | | SERVICES, CORE | TABITHA [...] | | | LABORATORY | | | [place] | | | SERVICES, | | [...] + | [facility] | [address] | [place] [address] | | | SERVICES, CORE | PARK [...] | + + + + + | [facility] | [address] | [place] [address] | | | SERVICES, CORE | TABITHA [...] | + + + + + | [facility] | [address] | [place] [address] | | | ИРИНА ANTOINE | TABITHA [...] [facility] | [address] | [place] | | | JULIANN SILVA OF [place] | [address] | [address] | | | TESTS | | | [...] [facility] | [address] | [place] | | | [facility] POINT OF CARE | [address] | [address] | | | TESTS | | | [...] | | | LABORATORY | | | [place] | | | SERVICES, | | [...] | + + + + + | [facility] | [address] | [place] [address] | | | SERVICES, ИРИНА | TABITHA [...] MARIA | [address] | [place], [place] | | | JULIANN SILVA OF [place] | [address] | [address] | | | TESTS | | | [...] EULOGIO [facility] | [address] | [place] [address] | | | ARASH, ИРИНА | TABITHA [...] | + + + + + | [facility] | [address] | [place] [address] | | | ИРИНА ANTOINE | TABITHA [...] [facility] | [address] | [place] [address] | | | SERVICES, CORE | PARK [...] | | | LABORATORY | | | [place] | | | SERVICES, | | [...] | + + + + + | [facility] | [address] | [place] [address] | | | SERVICES, CORE | PARK [...] | + + + + + | [facility] | [address] | [place] [address] | | | ИРИНА ANTOINE | TABITHA [...] | + + + + + | [facility] | [address] | [place] [address] | | | SERVICES, CORE | PARK [...] | [facility] | | considered for monitoring retirement glycemic control in patients with: | LABORATORY [...] | + + + + + | [facility] | [address] | [place] [address] | | | SERVICES, SPECIAL | TABITHA [...] [facility] | [address] | [place] [address] | | | SERVICES, CORE | PARK [...] - [facility] | [address] | [place], [place] | | | [facility] POINT OF CARE | [address] | [address] | | | TESTS | | | [...] (H) | 70 - 99 mg/dL | [facility] | | | GLUCOSE, | [...] [facility] | [address] | [place] | | | JULIANN SILVA OF [facility] | [address] | [address] | | | TESTS | | | [...] [facility] | [address] | [place] [address] | | | ARASH, ИРИНА | TABITHA [...] | [facility] | | | GRAVITY | [place] performed by | | LABORATORY | | [...] [facility] | [address] | [place] [address] | | | ARASH, CORE | TABITHA [...] | + + + + + | [facility] | [address] | [place] [address] | | | [place] | | | | + + + [...] [facility] | [address] | [place] | | | R[facility] POINT OF CARE | [address] | [address] | | | TESTS | | | [...] MARIA | [address] | [place], [place] | | | JULIANN SILVA OF [place] | [facility] | [address] | | | TESTS | | | [...] | + + + + + | [facility] | [address] | [place] [address] | | | ARASH, ИРИНА | TABITHA [...] [facility] | [address] | [place] [address] | | | SERVICES, CORE | TABITHA [...] | + + + + + | [facility] | [address] | [place] [address] | | | SERVICES, CORE | TABITHA [...] [facility] | [address] | [place] [address] | | | SERVICES, CORE | PARK [...] | | | LABORATORY | | | [place] | | | SERVICES, | | [...] [facility] | [address] | [place] [address] | | | ARASH, ИРИНА | TABITHA [...] | + + + + + | [facility] | [address] | [place] [address] | | | ИРИНА ANTOINE | TABITHA [...] MARIA | [address] | [place], [place] | | | JULIANN SILAV OF CARE | [facility] | [address] | | | TESTS | | | [...] (H) | 70 - 99 mg/dL | [facility] | | | GLUCOSE, | [...] [facility] | [address] | [place] | | | R[facility]ARDO POINT OF CARE | [address] | [address] | | | TESTS | | | [...] [facility] | [address] | [place], [place] | | | JULIANN SILVA OF [place] | [address] | [address] | | | TESTS | | | [...] MARIA | [address] | [place] | | | JULIANN SILVA OF [facility] | [address] | [address] | | | TESTS | | | [...] + | [facility] | [address] | [place] [address] | | | SERVICES, CORE | PARK [...] [facility] | [address] | [place] [address] | | | SERVICES, CORE | PARK [...] | [facility] | [address] | [place], [place] | | | RICARDO [facility] | [address] | [address] | | | TESTS | | | [...] | | | attempt. Midline lot number [id number]; there was + blood | | | [...] [facility] | [address] | [place] | | | JULIANN SILVA OF CARE | [address] | [address] | | | TESTS | | | [...] MARIA | [address] | [place], [place] | | | R[facility]ARDO POINT OF CARE | [address] | [address] | | | TESTS | | | [...] | + + + + + | [facility] | [address] | [place] [address] | | | SERVICES, CORE | TABITHA [...] (H) | 70 - 99 mg/dL | [facility] - | | | GLUCOSE, | | [...] [facility] | [address] | [place] | | | JULIANN SILVA OF [place] | [address] | [address] | | | TESTS | | | [...] MARIA | [address] | [place], [place] | | | JULIANN SILVA OF [place] | [facility] | [address] | | | TESTS | | | [...] (H) | 70 - 99 mg/dL | [facility] | | | GLUCOSE, | [...] [facility] | [address] | [place] | | | JULIANN SILVA OF CARE | [address] | [address] | | | TESTS | | | [...] R[facility] | [address] | [place] | | | GURINDER SILVA | [facility] | [address] | | | TESTS | | | [...] [facility] | [address] | [place] [address] | | | ИРИНА ANTOINE | TABITHA [...] + | [facility] | [address] | [place] [address] | | | ИРИНА ANTOINE | TABITHA [...] [facility] | [address] | [place] [address] | | | SERVICES, CORE | PARK [...] | | | LABORATORY | | | [place] | | | SERVICES, | | [...] + + | Performing | Address | City/State/[facility] | Phone Number | | Organization | | | | + + + + + | [facility] | [address] | [place] [address] | | | ИРИНА ANTOINE | PARK [...] | + + + + + | [facility] | [address] | [place] [address] | | | ИРИНА ANTOINE | TABITHA [...] (H) | 70 - 99 mg/dL | [facility] | | | GLUCOSE, | [...] MARIA | [address] | [place] | | | JULIANN SILVA OF [place] | [address] | [address] | | | TESTS | | | [...] | | | POC | | | JLUIANN SILVA | | | | | | [...] R[facility] | [address] | [place] | | | JULIANN SILVA OF [place] | [facility] | [address] | | | TESTS | | | [...] - [facility] | [address] | [place], [place] | | | JULIANN SILVA OF CARE | [facility] | [address] | | | TESTS | | | [...] (H) | 70 - 99 mg/dL | [facility] | | | GLUCOSE, | [...] MARIA | [address] | [place] | | | JULIANN SILVA OF CARE | [address] | [address] | | | TESTS | | | [...] [facility] | [address] | [place] [address] | | | ARASH, CORE | PARK [...] - [facility] | [address] | [place], [place] | | | R[facility]O POINT OF CARE | [address] | [address] | | | TESTS | | | [...] (H) | 70 - 99 mg/dL | [facility] | | | GLUCOSE, | [...] + + + | [facility] | [address] | [place] | | | JULIANN SILVA OF [facility] | [address] | [address] | | | TESTS | | | [...] | + + + + + | [facility] | [address] | [place] [address] | | | SERVICES, CORE | TABITHA [...] [facility] | [address] | [place] | | | R[facility]ARDO POINT OF CARE | [address] | [address] | | | TESTS | | | [...] [facility] | [address] | [place], [place] | | | RICARDO POINT OF CARE | [address] | [address] | | | TESTS | | | [...] R[facility] | [address] | [place] | | | JULIANN SILVA OF CARE | [address] | [address] | | | TESTS | | | [...] [facility] | [address] | [place] | | | R[facility]ARDO POINT OF CARE | [address] | [address] | | | TESTS | | | [...] | [facility] | [address] [facility] [address] | [place] | | | RICARDO POINT OF CARE | [address] | [address] | | | TESTS | | | [...] + | [facility] | [address] | [place] [address] | | | SERVICES, CORE | PARK [...] | + + + + + | [facility] | [address] | [place] [address] | | | SERVICES, CORE | TABITHA [...] | + + + + + | [facility] | [address] | [place] [address] | | | SERVICES, CORE | TABITHA [...] | | | LABORATORY | | | [place] | | | SERVICES, | | [...] [facility] | [address] | [place] [address] | | | SERVICES, CORE | TABITHA [...] | + + + + + | [facility] | [address] | [place] [address] | | | SERVICES, ИРИНА | TABITHA [...] [facility] | [address] | [place] | | | RICARDO POINT OF CARE | [facility] | [address] | | | TESTS | | | [...] - [facility] | [address] | [place] | | | R[facility]ARDO POINT OF CARE | [address] | [address] | | | TESTS | | | [...] + + + | [facility] | [address] | [place] | | | R[facility]ARDO POINT OF CARE | [address] | [address] | | | TESTS | | | [...] [facility] | [address] | [place] | | | JULIANN SILVA OF CARE | [address] | [address] | | | TESTS | | | [...] - [facility] | [address] | [place], [place] | | | RICARDO POINT OF CARE | [address] | [address] | | | TESTS | | | [...] R[facility] | [address] | [place] | | | R[facility]ARDO POINT OF CARE | [address] | [address] | | | TESTS | | | [...] | + + + + + | [facility] | [address] | [place] [address] | | | ИРИНА ANTOINE | TABITHA [...] (H) | 70 - 99 mg/dL | [facility] | | | GLUCOSE, | [...] [facility] | [address] | [place] | | | R[facility]ARDO POINT OF CARE | [address] | [address] | | | TESTS | | | [...] R[facility]GERS | [address] | [place], [place] | | | JULIANN SILVA OF ALEX[facility] | [address] | [address] | | | TESTS | | | [...] MARIA | [address] | [place], [place] | | | JULIANN SILVA OF CARE | [facility] | [address] | | | TESTS | | | [...] (H) | 70 - 99 mg/dL | [facility] | | | GLUCOSE, | [...] R[facility] | [address] | [place] | | | RICARDO POINT OF CARE | [address] | [address] | | | TESTS | | | [...] MARIA | [address] | [place], [place] | | | JULIANN SILVA OF [place] | [address] | [address] | | | TESTS | | | [...] | + + + + + | [facility] | [address] | [place] [address] | | | SERVICES, CORE | TABITHA [...] (H) | 70 - 99 mg/dL | [facility] - | | | GLUCOSE, | | [...] R[facility] | [address] | [place], [place] | | | JULIANN SILVA OF CARE | [address] | [address] | | | TESTS | | | [...] [facility] | [address] | [place] | | | R[facility]ARDO POINT OF CARE | [address] | [address] | | | TESTS | | | [...] [facility] | [address] | [place], [place] | | | JULIANN SILVA OF [place] | [facility] | [address] | | | TESTS | | | [...] RODGERS | [address] | [place] | | | JULIANN SILVA OF [facility] | [address] | [address] | | | TESTS | | | [...] [facility] | [address] | [place] | | | RICARDO POINT OF CARE | [address] | [address] | | | TESTS | | | [...] MARIA | [address] | [place] | | | RICARDO POINT OF [facility] | [facility] | [address] | | | TESTS | | | [...] | + + + + + | [facility] | [address] | [place] [address] | | | SERVICES, | [address] [...] [facility] | [address] | [place] [address] | | | SERVICES, | [address] [...] + + + + | PRODUCT | [id number] | | [facility] | | | UNIT [...] + + + + | EXPIRATION | [id number] | | [facility] | | | DATE [...] + + + + | BLOOD | [id number] | | [facility] | | | PRODUCT [...] [facility] | [address] | [place] [address] | | | SERVICES, | [address] [...] [facility] | [address] | [place] [address] | | | SERVICES, CORE | PARK [...] [facility] | [address] | [place] [address] | | | SERVICES, CORE | TABITHA [...] | + + + + + | [facility] | [address] | [place] [address] | | | SERVICES, CORE | PARK [...] | + + + + + | [facility] | [address] | [place] [address] | | | SERVICES, CORE | PARK [...] + | [facility] | [address] | [place] [address] | | | SERVICES, CORE | PARK [...] | | | LABORATORY | | | [place] | | | SERVICES, | | [...] LABORATORY | [address] | [place] [address] | | | ARASH, ИРИНА | TABITHA [...] (H) | 70 - 99 mg/dL | [facility] | | | GLUCOSE, | [...] [facility] | [address] | [place], [place] | | | JULIANN SILVA OF [place]LEX[place] | [facility] | [address] | | | TESTS | | | [...] R[facility]GERS | [address] | [place] | | | RICARDO POINT OF CARE | [address] | [address] | | | TESTS | | | [...] [facility] | [address] | [place] | | | JULIANN SILVA OF CARE | [facility] | [address] | | | TESTS | | | [...] [facility] | [address] | [place], [place] | | | JULIANN SILVA OF ALEX[place] | [facility] | [address] | | | TESTS | | | [...] R[facility] | [address] | [place] | | | RICARDO POINT OF CARE | [address] | [address] | | | TESTS | | | [...] [facility] | [address] | [place] | | | JULIANN SILVA OF CARE | [facility] | [address] | | | TESTS | | | [...] [facility] | [address] | [place], [place] | | | JULIANN SILVA OF [facility] | [address] | [address] | | | TESTS | | | [...] R[facility] | [address] | [place] | | | RICARDO POINT OF CARE | [address] | [address] | | | TESTS | | | [...] MARRANDIAM | [address] | [place], [place] | | | RICARDO [facility] | [address] | [address] | | | TESTS | | | [...] | | | LABORATORY | | | [place] | | | SERVICES, | | [...] | + + + + + | [facility] | [address] | [place] [address] | | | SERVICES, ИРИНА | TABITHA [...] + + + | [facility] | [address] | [place], [place] | | | JULIANN [facility] | [facility] | [address] | | | TESTS | | | [...] (H) | 70 - 99 mg/dL | [facility] | | | GLUCOSE, | [...] RODGERS | [address] | [place], [place] | | | [facility] | [address] | [address] | | | TESTS | | | [...] MARIA | [address] | [place], [place] | | | J[facility] | [address] | [address] | | | TESTS | | | [...] on the 1 attempt. Midline lot number [id number]; there was + | | | blood [...] RODGERS | [address] | [place], [place] | | | JULIANN SILVA [facility]ARE | [facility] | [address] | | | TESTS | | | [...] MARIA | [address] | [place], [place] | | | JULIANN [facility] | [address] | [address] | | | TESTS | | | [...] [facility] | [address] | [place] [address] | | | SERVICES, CORE | PARK [...] MARIA | [address] | [place], [place] | | | JULIANN [facility] | [address] | [address] | | | TESTS | | | [...] | + + + + + | [facility] | [address] [facility] [address] | [place] [address] | | | ИРИНА ANTOINE | TABITHA [...] MARQUAM | [address] | [place], [place] | | | [place], POINT OF CARE | [address] | [address] | | | TESTS | | | [...] (H) | 70 - 99 mg/dL | [facility] - | | | GLUCOSE, | | [...] MARQUAM | [address] | [place], [place] | | | JULIANN [facility] | [facility] | [address] | | | TESTS | | | [...] RODGERS | [address] | [place], [place] | | | R[facility] | [address] | [address] | | | TESTS | | | [...] MARQUAM | [address] | [place], [place] | | | [place], POINT OF CARE | [address] | [address] | | | TESTS | | | [...] [facility] | [address] | [place] [address] | | | SERVICES, CORE | PARK [...] [facility] | [address] | [place] [address] | | | ARASH, ИРИНА | PARK [...] | + + + + + | [facility] | [address] | [place] [address] | | | SERVICES, CORE | TABITHA [...] | | | LABORATORY | | | [place] | | | SERVICES, | | [...] | + + + + + | [facility] | [address] | [place] [address] | | | SERVICES, CORE | TABITHA [...] (H) | 70 - 99 mg/dL | [facility] - | | | GLUCOSE, | | [...] RODGERS | [address] | [place], [place] | | | R[facility]ARDO POINT [facility]ARE | [address] | [address] | | | TESTS | | | [...] MARQUAM | [address] | [place] | | | R[facility]ARDO POINT OF CARE | [address] | [address] | | | TESTS | | | [...] RODGERS | [address] | [place] | | | RICARDO POINT OF CARE | [address] | [address] | | | TESTS | | | [...] RODGERS | [address] | [place], [place] | | | [facility] | [address] | [address] | | | TESTS | | | [...] ANA MARIA | [address] | [place], [place] | | | JULIANN [facility]ILVA OF [facility] | [address] | [address] | | | TESTS | | | [...] | + + + + + | [facility] | [address] | [place] [address] | | | SERVICES, CORE | TABITHA [...] MARQUAM | [address] | [place], [place] | | | JULIANN [facility]ARE | [address] | [address] | | | TESTS | | | [...] MARQUAM | [address] | [place], [place] | | | JULIANN SILVA [facility] CARE | [address] | [address] | | | TESTS | | | [...] RODGERS | [address] | [place], [place] | | | JULIANN SIL[facility] CARE | [address] | [address] | | | TESTS | | | [...] MARQUAM | [address] | [place] | | | JULIANN S[facility]ARE | [address] | [address] | | | TESTS | | | [...] MARQUAM | [address] | [place], [place] | | | JULIANN S[facility] | [address] | [address] | | | TESTS | | | [...] RODGERS | [address] | [place], [place] | | | JULIANN [facility] | [address] | [address] | | | TESTS | | | [...] MARQUAM | [address] | [place], [place] | | | JULIANN S[facility] | [address] | [address] | | | TESTS | | | [...] | + + + + + | [facility] | [address] | [place] [address] | | | SERVICES, CORE | TABITHA [...] [facility] | [address] | [place], [place] | | | [facility]O [facility] | [address] | [address] | | | TESTS | | | [...] MARIA | [address] | [place], [place] | | | [facility] [place] [facility] | [address] | [address] | | | TESTS | | | [...] | + + + + + | [facility] | [address] | [place] [address] | | | SERVICES, CORE | TABITHA [...] (H) | 70 - 99 mg/dL | [facility] - | | | GLUCOSE, | [...] [facility] | [address] | [place], [place] | | | [facility] | [address] | [address] | | | TESTS | | | [...] the tip in the proximal gastric body. Flint Олег | | | catheter in place. [...] Note | + + | Service Account, [employer] Res In Interface - 03/20/2017 2:38 PM PDT EXAM: Supine | | frontal view of the abdomen. HISTORY: Study to evaluate feeding tube | | positionCOMPARISON: Chest Xray dated 03/19/2017.FINDINGS AND IMPRESSION:Feeding tube is | | seen in the stomach with the tip in the proximal gastric body.Flint Олег catheter in | | place.Limited evaluation of the lungs as technique was tailored for feeding tube.I have | | personally reviewed the images and, if necessary, edited the report. I agree with the | | report as now presented. | | | |Feeding tube is seen in the stomach with the tip in the proximal gastric body. | |Flint Олег catheter in place. | |Limited evaluation [...] [facility] | [address] | [place], [place] | | | JULIANN SIL[facility] CARE | [facility] | [address] | | | TESTS | | | [...] MARIA | [address] | [place], [place] | | | [facility] [place] | [address] | [address] | | | TESTS | | | [...] ANA MARIA | [address] | [place], [place] | | | J[facility]ANN [facility] CARE | [facility] | [address] | | | TESTS | | | [...] (H) | 70 - 99 mg/dL | [facility] - | | | GLUCOSE, | [...] [facility] | [address] | [place], [place] | | | J[facility]ARE | [facility] | [address] | | | TESTS | | | [...] MARIA | [address] | [place], [place] | | | [facility] [place] | [address] | [address] | | | TESTS | | | [...] | + + + + + | [facility] | [address] | [place] [address] | | | SERVICES, CORE | PARK [...] | + + + + + | [facility] | [address] | [place] [address] | | | SERVICES, CORE | TABITHA [...] | + + + + + | [facility] | [address] | [place] [address] | | | ИРИНА ANTOINE | PARK [...] MARQUAM | [address] | [place], [place] | | | [facility] | [address] | [address] | | | TESTS | | | | + + + + + X-RAY PORTABLE CHEST 1 VIEW (03/20/2017 6:33 AM PDT) + + | Specimen | + + | | + + + + + | Narrative | Performed At | + + + | EXAM: IA CHEST 1 VIEW 03/20/17 04:29:28 HISTORY: ECMO [...] Interface - 03/20/2017 10:12 AM PDT EXAM: IA CHEST 1 | | VIEW 03/20/17 04:29:28 [...] | | + +---------+ + + | [facility] | | | | | [...] - MARRANDIAM | [address] | [place], [place] | | | JUL[facility]ANN [facility] CARE | [address] | [address] | | | TESTS | | | [...] [facility] | [address] | [place], [place] | | | JULAINN [facility] [place] | [address] | [address] | | | TESTS | | | [...] MARQUAM | [address] | [place], [place] | | | [facility] | [address] | [address] | | | TESTS | | | [...] MARIA | [address] | [place], [place] | | | [facility] | [address] | [address] | | | TESTS | | | [...] [facility] | [address] | [place] [address] | | | SERVICES, CORE | PARK [...] [facility] | [address] | [place] [address] | | | SERVICES, CORE | TABITHA [...] [facility] | [address] | [place] [address] | | | ARASH, ИРИНА | TABITHA [...] [facility] | [address] | [place] [address] | | | SERVICES, CORE | PARK [...] | | | LABORATORY | | | [place] | | | SERVICES, | | [...] | + + + + + | [facility] | [address] | [place] [address] | | | SERVICES, CORE | TABITHA [...] - MARQUAM | [address] | [place], [place] | | | J[facility]ANN [facility] CARE | [facility] | [address] | | | TESTS | | | [...] [facility] | [address] | [place], [place] | | | [facility] | [address] | [address] | | | TESTS | | | [...] | + + + + + | [facility] | [address] | [place] [address] | | | ARASH CORE | PARK [...] MARQUAM | [address] | [place], [place] | | | J[facility]ANN [facility]ARE | [facility] | [address] | | | TESTS | | | [...] (H) | 70 - 99 mg/dL | [facility] - | | | GLUCOSE, | [...] MARIA | [address] | [place] | | | [facility]ANN [facility] | [address] | [address] | | | TESTS | | | [...] | + + + + + | [facility] | [address] | [place] [address] | | | SERVICES, CORE | TABITHA [...] MARQUAM | [address] | [place], [place] | | | [facility] | [address] | [address] | | | TESTS | | | [...] | + + + + + | [facility] | [address] | [place] [address] | | | SERVICES, ИРИНА | TABITHA [...] MARQUAM | [address] | [place] | | | [facility]ARE | [facility] | [address] | | | TESTS | | | [...] [facility] | [address] | [place] [address] | | | SERVICES, CORE | PARK [...] | + + + + + | [facility] | [address] | [place] [address] | | | SERVICES, CORE | TABITHA [...] (H) | 70 - 99 mg/dL | [facility] - | | | GLUCOSE, | [...] [facility] | [address] | [place], [place] | | | [facility] | [address] | [address] | | | TESTS | | | [...] [facility] | [address] | [place] [address] | | | SERVICES, CORE | TABITHA [...] | + + + + + | [facility] | [address] | [place] [address] | | | SERVICES, CORE | TABITHA [...] | + + + + + | [facility] | [address] | [place] [address] | | | SERVICES, CORE | PARK [...] | + + + + + | [facility] | [address] | [place] [address] | | | SERVICES, CORE | TABITHA [...] MARQUAM | [address] | [place] | | | J[facility]ANN [facility]ARE | [address] | [address] | | | TESTS | | | [...] MARRANDIAM | [address] | [place], [place] | | | [facility] | [address] | [address] | | | TESTS | | | [...] (H) | 70 - 99 mg/dL | [facility] - | | | GLUCOSE, | [...] [facility] | [address] | [place] | | | [facility]ANN [facility] | [address] | [address] | | | TESTS | | | [...] | + + + + + | [facility] | [address] | [place] [address] | | | SERVICES, CORE | PARK [...] DEPT OF | [address] | [place], [place] | | | CARDIOLOGY | [facility] | [address] | | + + + + + CAPILLARY BLOOD GLUCOSE (NO CHG), POC (03/19/2017 1:05 PM PDT) + +---------+ + + + | Component | Value | Ref Range | Performed | Pathologist | | | | | At | Signature | + +---------+ + + + | BLOOD | 137 (H) | 70 - 99 mg/dL | [facility] - | | | GLUCOSE, | [...] [facility] | [address] | [place], [place] | | | [facility] | [address] | [address] | | | TESTS | | | | + + + + + VD-ZG-DCU-HBPOC RT (03/19/2017 1:04 PM PDT) + + [...] [facility] | [address] | [place], [place] | | | [facility] | [address] | [address] | | | TESTS | | | [...] + + + + | PRODUCT | [id number] | | [facility] | | | UNIT [...] + + + + | EXPIRATION | [id number] | | [facility] | | | DATE [...] + + + + | BLOOD | [id number] | | [facility] | | | PRODUCT [...] LABORATORY | [address] | [place] [address] | | | SERVICES, | [address] [...] + + + + | PRODUCT | [id number] | | [facility] | | | UNIT [...] + + + + | EXPIRATION | [id number] | | [facility] | | | DATE [...] + + + + | BLOOD | [id number] | | [facility] | | | PRODUCT [...] | + + + + + | [facility] | [address] | [place] [address] | | | SERVICES, | [address] [...] + + + + | PRODUCT | [id number] | | [facility] | | | UNIT [...] + + + + | EXPIRATION | [id number] | | [facility] | | | DATE [...] + + + + | BLOOD | [id number] | | [facility] | | | PRODUCT [...] | + + + + + | [facility] | [address] | [place] [address] | | | SERVICES, | [address] [...] + + + + | PRODUCT | [id number] | | [facility] | | | UNIT [...] + + + + | EXPIRATION | [id number] | | [facility] | | | DATE [...] + + + + | BLOOD | [id number] | | [facility] | | | PRODUCT [...] | + + + + + | [facility] | [address] | [place] [address] | | | SERVICES, | [address] [...] [facility] | [address] | [place] [address] | | | SERVICES, ИРИНА | TABITH[address] [...] | | | LABORATORY | | | [place] | | | SERVICES, | | [...] | + + + + + | [facility] | [address] | [place] [address] | | | SERVICES, CORE | TABITHA [...] | + + + + + | [facility] | [address] | [place] [address] | | | SERVICES, CORE | TABITHA [...] | + + + + + | [facility] | [address] | [place] [address] | | | SERVICES, CORE | [address] | | | + + + + + IA ECMO REV (EXT)AND/OR DECANNULATION (03/19/2017 12:36 PM [...] Siria | | | GISELL Preston PhD [facility] [address] [id number] [place], | | | [place] [address] | | + + + ABG-FULL ABL, [...] MARIA | [address] | [place] | | | JULIANN [facility] CARE | [address] | [address] | | | TESTS | | | [...] MARQUAM | [address] | [place] | | | JULIANN [facility] | [address] | [address] | | | TESTS | | | | + + + + + KO-DP-BQO-HB,POC RT (03/19/2017 10:24 AM PDT) + + [...] [facility] | [address] | [place], [place] | | | [facility] | [address] | [address] | | | TESTS | | | [...] MARIA | [address] | [place], [place] | | | JUL[facility]ANN S[facility] | [facility] | [address] | | | TESTS | | | | + + + + + SF-VK-DLU-HB,POC RT (03/19/2017 10:06 AM PDT) + + [...] MARQUAM | [address] | [place] | | | JULIANN S[facility] CARE | [address] | [address] | | | TESTS | | | | + + + + + ZC-TH-VXN-HB,POC RT (03/19/2017 9:51 AM PDT) + + [...] [facility] | [address] | [place], [place] | | | [facility] | [address] | [address] | | | TESTS | | | [...] + + + + | PRODUCT | [id number] | | [facility] | | | UNIT [...] + + + + | EXPIRATION | [id number] | | [facility] | | | DATE [...] + + + + | BLOOD | [id number] | | [facility] | | | PRODUCT [...] | + + + + + | [facility] | [address] | [place] [address] | | | SERVICES, | [address] [...] + + + + | PRODUCT | [id number] | | [facility] | | | UNIT [...] + + + + | EXPIRATION | [id number] | | [facility] | | | DATE [...] + + + + | BLOOD | [id number] | | [facility] | | | PRODUCT [...] [facility] | [address] | [place] [address] | | | SERVICES, | [address] [...] + + + + | PRODUCT | [id number] | | [facility] | | | UNIT [...] + + + + | EXPIRATION | [id number] | | [facility] | | | DATE [...] + + + + | BLOOD | [id number] | | [facility] | | | PRODUCT [...] [facility] | [address] | [place] [address] | | | SERVICES, | [address] [...] + + + + | PRODUCT | [id number] | | [facility] | | | UNIT [...] + + + + | EXPIRATION | [id number] | | [facility] | | | DATE [...] + + + + | BLOOD | [id number] | | [facility] | | | PRODUCT [...] + | [facility] | [address] | [place] [address] | | | SERVICES, | [address] | | | | TRANSFUSION MEDICINE | | | | + + + + + X-RAY PORTABLE CHEST 1 VIEW (03/19/2017 9:13 AM PDT) + + | Specimen | + + | | + + + + + | Narrative | Performed At | + + + | EXAM: IA CHEST 1 VIEW HISTORY: ECMO. Evaluate cannula | [facility] | | placement. COMPARISON: Yesterday FINDINGS: Endotracheal | RADIOLOGY VOICE | | tube, Flint-Олег catheter and enteric tube remain in place. [...] Interface - 03/19/2017 9:17 AM PDT EXAM: IA CHEST 1 | | VIEW HISTORY: ECMO. Evaluate cannula placement.COMPARISON: YesterdayFINDINGS: | | Endotracheal tube, Flint-Олег catheter and enteric tube remain in place. [...] [facility] | [address] | [place], [place] | | | JULIANN SILVA OF CARE | [facility] | [address] | | | TESTS | | | [...] MARQUAM | [address] | [place], [place] | | | JULIANN S[facility] CARE | [address] | [address] | | | TESTS | | | [...] | + + + + + | [facility] | [address] | [place] [address] | | | ИРИНА ANTOINE | TABITHA [...] (H) | 70 - 99 mg/dL | [facility] - | | | GLUCOSE, | [...] MARQUAM | [address] | [place] | | | [facility] | [address] | [address] | | | TESTS | | | [...] [facility] | [address] | [place] | | | JULIANN SILVA OF [place] | [facility] | [address] | | | TESTS | | | [...] BLUAM | [address] | [place], [place] | | | JULIANN SILVA OF CARE | [facility] | [address] | | | TESTS | | | [...] (H) | 70 - 99 mg/dL | [facility] - | | | GLUCOSE, | [...] MARIA | [address] | [place] | | | JULIANN SILVA [facility] | [address] | [address] | | | TESTS | | | [...] | + + + + + | [facility] | [address] | [place] [address] | | | SERVICES, CORE | TBAITHA [...] MARQUAM | [address] | [place], [place] | | | [facility] PO[facility]ARE | [address] | [address] | | | TESTS | | | [...] MARRANDIAM | [address] | [place], [place] | | | [facility] | [address] | [address] | | | TESTS | | | [...] R[facility]GERS | [address] | [place] | | | [facility] [place] | [address] | [address] | | | TESTS | | | [...] [facility] | [address] | [place] [address] | | | SERVICES, CORE | PARK [...] R[facility] | [address] | [place] | | | [facility]ULIANN [facility] | [facility] | [address] | | | TESTS | | | [...] | + + + + + | [facility] | [address] | [place] [address] | | | SERVICES, CORE | TABITHA [...] | + + + + + | [facility] | [address] | [place] [address] | | | SERVICES, CORE | TABITHA [...] | + + + + + | [facility] | [address] | [place] [address] | | | SERVICES, CORE | PARK [...] [facility] | [address] | [place] [address] | | | SERVICES, CORE | PARK [...] [facility] | [address] | [place] [address] | | | SERVICES, CORE | PARK [...] [facility] | [address] | [place] [address] | | | SERVICES, CORE | PARK [...] | | | LABORATORY | | | [place] | | | SERVICES, | | [...] + + | Performing | Address | City/State/[facility] | Phone Number | | Organization | | | | + + + + + | [facility] | [address] | [place] [address] | | | SERVICES, CORE | PARK [...] [facility] | [address] | [place] [address] | | | SERVICES, CORE | PARK [...] | + + + + + | [facility] | [address] | [place] [address] | | | SERVICES, CORE | TABITHA [...] MARQUAM | [address] | [place], [place] | | | [facility]ARE | [address] | [address] | | | TESTS | | | [...] | + + + + + | [facility] | [address] | [place] [address] | | | SERVICES, CORE | PARK [...] MARQUAM | [address] | [place] | | | JULIANN SIL[facility] CARE | [address] | [address] | | | TESTS | | | [...] - BLUAM | [address] | [place] | | | [facility]O [facility] | [address] | [address] | | | TESTS | | | [...] | + + + + + | [facility] | [address] | [place] [address] | | | SERVICES, CORE | TABITHA [...] (H) | 70 - 99 mg/dL | [facility] - | | | GLUCOSE, | | [...] MARIA | [address] | [place], [place] | | | JULIANN SILVA [facility] [place] | [facility] | [address] | | | TESTS | | | [...] MARIA | [address] | [place], [place] | | | JULIANN SILVA OF [place] | [facility] | [address] | | | TESTS | | | [...] (H) | 70 - 99 mg/dL | [facility] - | | | GLUCOSE, | [...] RODGERS | [address] | [place] | | | JULINAN SILVA OF CARE | [address] | [address] | | | TESTS | | | [...] [facility] | [address] | [place] [address] | | | SERVICES, CORE | PARK [...] | + + + + + | [facility] | [address] | [place] [address] | | | SERVICES, CORE | PARK [...] MARQUAM | [address] | [place] | | | JUL[facility]ANN [facility]ARE | [address] | [address] | | | TESTS | | | [...] [facility] | [address] | [place] [address] | | | ARASH, ИРИНА | TABITHA [...] (H) | 70 - 99 mg/dL | [facility] - | | | GLUCOSE, | [...] MARQUAM | [address] | [place] | | | JULIANN SILVA OF [place] | [facility] | [address] | | | TESTS | | | [...] RODGERS | [address] | [place], [place] | | | [facility] | [address] | [address] | | | TESTS | | | [...] [facility] | [address] | [place] [address] | | | SERVICES, CORE | TABITHA [...] [facility] | [address] | [place] [address] | | | ИРИНА ANTOINE | PARK [...] - MARQU[facility] | [address] | [place], [place] | | | [facility]O PO[facility]ARE | [address] | [address] | | | TESTS | | | [...] (H) | 70 - 99 mg/dL | [facility] - | | | GLUCOSE, | [...] + + + | [facility] | [address] | [place], [place] | | | JULIANN SILVA [facility] | [address] | [address] | | | TESTS | | | [...] | + + + + + | [facility] | [address] | [place] [address] | | | SERVICES, CORE | PARK [...] [facility] | [address] | [place] [address] | | | SERVICES, CORE | TABITHA [...] [facility] | [address] | [place] [address] | | | SERVICES, CORE | PARK [...] [facility] | [address] | [place] [address] | | | ИРИНА ANTOINE | TABITHA [...] | | | LABORATORY | | | [place] | | | SERVICES, | | [...] | + + + + + | [facility] | [address] | [place] [address] | | | SERVICES, CORE | PARK [...] | + + + + + | [facility] | [address] | [place] [address] | | | SERVICES, CORE | TABITHA [...] [facility] | [address] | [place] [address] | | | ИРИНА ANTOINE | TABITHA [...] | + + + + + | [facility] | [address] | [place] [address] | | | SERVICES, CORE | TABITHA [...] (H) | 70 - 99 mg/dL | [facility] - | | | GLUCOSE, | [...] + + + | [facility] | [address] | [place] | | | JULIANN SILVA [facility] | [address] | [address] | | | TESTS | | | [...] MARQUAM | [address] | [place], [place] | | | JULIANN SILVA OF [place] | [facility] | [address] | | | TESTS | | | [...] | + + + + + | [facility] | [address] | [place] [address] | | | SERVICES, CORE | TABITHA [...] (H) | 70 - 99 mg/dL | [facility] - | | | GLUCOSE, | [...] RODGERS | [address] | [place] | | | [facility] | [address] | [address] | | | TESTS | | | [...] | + + + + + | [facility] | [address] | [place] [address] | | | SERVICES, ИРИНА | TABITHA [...] [facility] | [address] | [place] [address] | | | SERVICES, CORE | PARK [...] + | [facility] | [address] | [place] [address] | | | [place] | | | | + + + [...] [facility] | [address] | [place], [place] | | | JULIANN SILVA [facility] CARE | [address] | [address] | | | TESTS | | | [...] MARQUAM | [address] | [place] | | | H[place], POINT OF CARE | [address] | [address] | | | TESTS | | | [...] [facility] | [address] | [place] [address] | | | SERVICES, CORE | PARK [...] | + + + + + | [facility] | [address] | [place] [address] | | | SERVICES, CORE | TABITHA [...] (H) | 70 - 99 mg/dL | [facility] | | | GLUCOSE, | [...] [facility] | [address] | [place], [place] | | | JULIANN SILVA OF [facility] | [address] | [address] | | | TESTS | | | [...] [facility] | [address] | [place], [place] | | | J[facility] | [address] | [address] | | | TESTS | | | | + + + + + X-RAY PORTABLE CHEST 1 VIEW (03/18/2017 6:05 AM PDT) + + | Specimen | + + | | + + + + + | Narrative | Performed At | + + + | EXAM: IA CHEST 1 VIEW HISTORY: ECMO. Evaluate cannula placement. | [facility] | | COMPARISON: Yesterday FINDINGS: Endotracheal tube tip is | RADIOLOGY VOICE | | 2.5 cm above the jefferson. Enteric tube tip in the stomach. [facility] | RECOGNITION | | catheter tip projects [...] Note | + + | Service Account, [employer] In Interface - 03/18/2017 8:39 AM PDT EXAM: IA CHEST 1 | | VIEW HISTORY: ECMO. Evaluate cannula placement.COMPARISON: YesterdayFINDINGS: | | Endotracheal tube tip is 2.5 cm above the jefferson. Enteric tube tip in the stomach. | | [facility] catheter tip projects in the main pulmonary [...] [facility]NA [facility] | [address] | [place], [place] | | | [facility] | [facility] | [address] | | | TESTS | | | [...] (H) | 60 - 99 mg/dL | [facility] | | | GLUCOSE, | [...] [facility] | [address] | [place], [place] | | | [facility]O POINT OF CARE | [facility] | [address] | | | TESTS | | | [...] | + + + + + | [facility] | [address] [address] | [place] [address] | | | SERVICES, CORE | TABITHA [...] [facility] | [address] | [place], [place] | | | [facility] POINT OF CARE | [address] | [address] | | | TESTS | | | [...] [facility] | [address] | [place], [place] | | | [facility] | [address] | [address] | | | TESTS | | | [...] | + + + + + | [facility] | [address] | [place] [address] | | | SERVICES, | [address] [...] [facility] | [address] | [place] [address] | | | SERVICES, | [address] [...] + + + + | PRODUCT | [id number] | | [facility] | | | UNIT [...] + + + + | EXPIRATION | [id number] | | [facility] | | | DATE [...] + + + + | BLOOD | [id number] | | [facility] | | | PRODUCT [...] | + + + + + | [facility] | [address] | [place] [address] | | | ARASH | [address] [...] (A) | 5 - 10 Minutes | [facility] - | | | CITRATED | | | [facility] | | | | | | JULIANN SILVA | | | | | | OF CARE | | | | | | TESTS | | + + + + + + | K - | 3.1 (A) | 1 - 3 Minutes | [facility] | | | CITRATED | [...] [facility] | [address] | [place], [place] | | | JUL[facility]ANN S[facility] | [address] | [address] | | | TESTS | | | [...] [facility] | [address] | [place] [address] | | | SERVICES, CORE | PARK [...] [facility] | [address] | [place] [address] | | | SERVICES, CORE | PARK [...] [facility] | [address] | [place] [address] | | | SERVICES, CORE | PARK [...] [facility] | [address] | [place] [address] | | | SERVICES, CORE | PARK [...] | | | LABORATORY | | | [place] | | | SERVICES, | | [...] the MDRD equation recommended by the | [facility] | | National Kidney Disease Education [...] | + + + + + | [facility] | [address] | [place] [address] | | | SERVICES, CORE | TABITHA [...] | + + + + + | [facility] | [address] | [place] [address] | | | SERVICES, CORE | [address] | | | + + + + + MAGNESIUM, PLASMA (03/18/2017 1:19 AM PDT) + +-------+ + + + | Component | Value | Ref Range | Performed | Pathologist | | | | | At | Signature | + +-------+ + + + | MAGNESIUM,P | 2.3 | 1.8 - 2.5 mg/dL | [facility] | | | DENISEMA | | | [...] | + + + + + | [facility] | [address] | [place] [address] | | | ARASH, ИРИНА | PARK [...] [facility] | [address] | [place] [address] | | | ARASH, ИРИНА | TABITHA [...] (H) | 60 - 99 mg/dL | [facility] | | | GLUCOSE, | [...] MARIA | [address] | [place], [place] | | | JULIANN SILVA [facility] | [address] | [address] | | | TESTS | | | [...] | + + + + + | [facility] | [address] | [place] [address] | | | SERVICES, ИРИНА | TABITHA [...] [facility] | [address] | [place] [address] | | | SERVICES, ИРИНА | TABITHA [...] (H) | 60 - 99 mg/dL | [facility] | | | GLUCOSE, | [...] [facility] | [address] | [place], [place] | | | JULIANN SILAV OF [facility] | [facility] | [address] | | | TESTS | | | [...] R[facility]GERS | [address] | [place], [place] | | | RICARDO POINT OF CARE | [address] | [address] | | | TESTS | | | [...] MARIA | [address] | [place], [place] | | | JULIANN SILVA OF [facility] | [address] | [address] | | | TESTS | | | [...] (H) | 60 - 99 mg/dL | [facility] | | | GLUCOSE, | [...] MARIA | [address] | [place], [place] | | | JULIANN SILVA OF [facility] | [facility] | [address] | | | TESTS | | | [...] | + + + + + | [facility] | [address] | [place] [address] | | | SERVICES, CORE | TABITHA [...] [facility] | [address] | [place], [place] | | | JULIANN SILVA OF CARE | [address] | [address] | | | TESTS | | | [...] [facility] | [address] | [place] [address] | | | SERVICES, CORE | PARK [...] [facility] | [address] | [place] [address] | | | ИРИНА ANTOINE | TABITHA [...] [facility] | [address] | [place] [address] | | | SERVICES, CORE | TABITHA [...] | + + + + + | [facility] | [address] | [place] [address] | | | ИРИНА ANTOINE | TABITHA [...] [facility] | [address] | [place] [address] | | | SERVICES, CORE | TABITHA [...] + | [facility] | [address] [facility] [address] | [place], [place] | | | R[facility]ARDO POINT OF CARE | [address] | [address] | | | TESTS | | | [...] + + + | EULOG[facility] | [address] | [place], [place] | | | JUL[facility]ANN S[facility] CARE | [address] | [address] | | | TESTS | | | [...] [facility] | [address] | [place] [address] | | | SERVICES, CORE | PARK [...] MARIA | [address] | [place], [place] | | | JULIANN SILVA [facility] CARE | [address] | [address] | | | TESTS | | | [...] (H) | 60 - 99 mg/dL | [facility] | | | GLUCOSE, | [...] R[facility] | [address] | [place], [place] | | | JULIANN S[facility] | [address] | [address] | | | TESTS | | | [...] + + + + | PRODUCT | [id number] | | [facility] | | | UNIT [...] + + + + | EXPIRATION | [id number] | | [facility] | | | DATE [...] + + + + | BLOOD | [id number] | | [facility] | | | PRODUCT [...] | + + + + + | [facility] | [address] | [place] [address] | | | SERVICES, | [address] [...] + + + + | PRODUCT | [id number] | | [facility] | | | UNIT [...] + + + + | EXPIRATION | [id number] | | [facility] | | | DATE [...] + + + + | BLOOD | [id number] | | [facility] | | | PRODUCT [...] [facility] | [address] | [place] [address] | | | SERVICES, | [address] [...] MARIA | [address] | [place], [place] | | | [facility]O POINT OF CARE | [facility] | [address] | | | TESTS | | | [...] [facility] | [address] | [place] [address] | | | SERVICES, ИРИНА | TABITHA [...] | + + + + + | [facility] | [address] | [place] [address] | | | SERVICES, CORE | PARK [...] + | [facility] | [address] [facility] [address] | [place] [address] | | | SERVICES, CORE | TABITHA [...] [facility] | [address] | [place] [address] | | | SERVICES, CORE | TABITHA [...] | | | LABORATORY | | | [place] | | | SERVICES, | | [...] 11 | 4 - 11 mmol/L | [facility] | | | GAP(ALB | | [...] | + + + + + | [facility] | [address] [facility] | [place] [address] | | | ИРИНА ANTOINE | TABITHA [...] [facility] | [address] | [place] [address] | | | ИРИНА ANTOINE | PARK [...] | + + + + + | [facility] | [address] | [place] [address] | | | SERVICES, ИРИНА | TABITHA [...] [facility] | [address] | [place] [address] | | | SERVICES, CORE | TABITHA [...] R[facility] | [address] | [place], [place] | | | R[facility]ARDO POINT OF [facility] | [address] | [address] | | | TESTS | | | [...] | + + + + + | [facility] | [address] | [place] [address] | | | SERVICES, ИРИНА | TABITHA [...] [facility] | [address] | [place] | | | JULIANN SILVA [facility] | [address] | [address] | | | TESTS | | | | + + + + + [facility] DUPLEX LOWER EXTREMITY RT (03/17/2017 [...] Note | + + | Service Account, [employer] Interface - 03/17/2017 6:18 PM PDT [...] + + | Performing | Address | City/State/[facility] | Phone Number | | Organization | [...] Note | + + | Service Account, [employer] - 03/17/2017 6:17 PM PDT [...] R[facility] | [address] | [place], [place] | | | JULIANN SILVA OF [facility] | [facility] | [address] | | | TESTS | | | [...] [facility] | [address] | [place] [address] | | | SERVICES, CORE | PARK [...] | + + -------+ | [facility] | [facility] | | [facility] Adult Echocardiography | CARDIOLOG Y | | Laboratory [address] [place] [address], | | | [place] [address] Pt Name: | | | RON MCKEON Study Date/Time 03/17/2017 / 10:30:26 | | | AMMRN: [id number] Most recent | | | prior: 03/15/2017Acc #: [id number] No. | | | previous echos: 1DOB: 1955 61 years Heart | | | Rate: 139 bpmHeight: 69.0 | | | in Blood Pressure: 133/83 | | | mm/HgWeight: 258.0 | | | lb Gender: | | | MBSA: 2.30 m2 Order | | | ID: [id number] Software Development Intern: Mauri Domingo LORENZO | | | Referring [...] | | pre-diabetes who is transferred to [facility] with cardiogenic shock in the | [...] | | | Report electronically signed by: [id number] Jen Ovalle MD, PhD | | | (03/17/2017, 1:53:40 PM) Final | | | | | |Report electronically signed by: [id number] Jen Ovalle MD, PhD (03/17/2017, | | |1:53:40 PM) | | | | | | | | | | | | Final | | + + -------+ + + | Procedure Note | + + | Interface, Cardiology Results - 03/17/2017 1:53 PM [facility] | | [facility] Echocardiography Laboratory [address] [place] [address] | | [place], [place] [address] Pt Name: RON Chaudhary | | MIKE Study Date/Time 03/17/2017 / 10:30:26 AMMRN: [id number] Most | | recent prior: 03/15/2017Acc #: [id number] No. previous echos: 1DOB: | | 1955 61 years Heart Rate: 139 bpmHeight: 69.0 in Blood | | Pressure: 133/83 mm/HgWeight: 258.0 lb Gender: MBSA: | | 2.30 m2 Order ID: [id number] Software Development Intern: Mauri Domingo | | RDCSReferring Provider: Mellisa HajiPatient Location: 12KModalities Performed: | | Limited 2D, Color Doppler and Spectral Doppler Limited.Study Quality: Fair.Exam | | Indication: Heart failure; ECMO; s/p STEMIHistory: 61 year old male with a past medical | | history significant for hypertension, hyperlipidemia, ongoing tobacco use and | | pre-diabetes who is transferred to [facility] with cardiogenic shock in the setting [...] | | Scoring: Report electronically signed by: [id number] Jen Ovalle MD, PhD (03/17/2017, | | [...] | | | |Report electronically signed by: [id number] Jen Ovalle MD, PhD (03/17/2017, | |1:53:40 PM) | | | | | | | | Final | + + + + + + + | Performing | Address | City/State/Zipcode | Phone Number | | Organization | | | | + + + + + | [facility] | [address] | [place], [place] | | | CARDIOLOGY | [address] | [address] | | + + + + + [...] MARRANDIAM | [address] | [place] | | | JULIANN SILVA OF CARE | [address] | [address] | | | TESTS | | | [...] - BLUAM | [address] | [place], [place] | | | RICARDO POINT OF CARE | [facility] | [address] | | | TESTS | | | [...] + | [facility] | [address] [facility] [address] | [place] [address] | | | SERVICES, CORE | PARK [...] | + + + + + | [facility] | [address] | [place] [address] | | | SERVICES, CORE | TABITHA [...] [facility] | [address] | [place] [address] | | | SERVICES, CORE | TABITHA [...] [facility] | [address] | [place], [place] | | | JULIANN SILVA OF CARE | [address] | [address] | | | TESTS | | | [...] RODGERS | [address] | [place] | | | R[facility]O POINT OF CARE | [address] | [address] | | | TESTS | | | [...] [facility] | 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, [employer] In Interface - 03/17/2017 9:44 AM PDT EXAM: IA CHEST 1 | | VIEW 03/17/17 04:53:29 [...] - [facility] | [address] | [place], [place] | | | R[facility]ARDO POINT OF [facility] | [facility] | [address] | | | TESTS | | | [...] [facility] | [address] | [place] [address] | | | SERVICES, CORE | PARK [...] | | | LABORATORY | | | [place]ORE[place] | | | SERVICES, | | [...] + | [facility] | [address] [facility] [facility] [address] | [place] [address] | | | [facility] | [address] | | | + [...] | + + + + + | [facility] | [address] | [place] [address] | | | SERVICES, CORE | TABITHA [...] (H) | 60 - 99 mg/dL | [facility] - | | | GLUCOSE, | | [...] R[facility] | [address] | [place], [place] | | | JULIANN SILVA OF CARE | [address] | [address] | | | TESTS | | | [...] | + + + + + | [facility] | [address] | [place] [address] | | | SERVICES, CORE | PARK [...] | 56 (L) | >300 mmHg | [facility] | | | RATIO | | | [...] | + + + + + | [facility] | [address] | [place] [address] | | | SERVICES, CORE | TABITHA [...] | + + + + + | [facility] | [address] [facility] | [place] [address] | | | ИРИНА ANTOINE | TABITHA [...] | + + + + + | [facility] | [address] | [place] [address] | | | SERVICES, CORE | TABITHA [...] [facility] | [address] | [place] [address] | | | SERVICES, CORE | PARK [...] [facility] | [address] | [place] [address] | | | SERVICES, ИРИНА | PARK [...] | + + + + + | [facility] | [address] | [place] [address] | | | SERVICES, CORE | TABITHA [...] | + + + + + | [facility] | [address] | [place] [address] | | | SERVICES, ИРИНА | TABITHA [...] | + + + + + | [facility] | [address] | [place] [address] | | | ARASH, CORE | PARK [...] | + + + + + | [facility] | [address] | [place] [address] | | | SERVICES, CORE | TABITHA [...] | [address] [facility] [facility] [address] | [place], [place] | | | CARDIOLOGY | [address] | [address] | | + + + + + YN-SV-XBC-HB,POC RT (03/17/2017 12:44 AM PDT) + + [...] MARRANDIAM | [address] | [place] | | | JULIANN SILVA OF CARE | [address] | [address] | | | TESTS | | | [...] MARIA | [address] | [place], [place] | | | JULIANN S[facility]VA OF [facility] | [address] | [address] | | | TESTS | | | [...] R[facility] | [address] | [place], [place] | | | RICARDO POINT OF CARE | [address] | [address] | | | TESTS | | | [...] [facility] | [address] | [place] [address] | | | SERVICES, CORE | PARK [...] [facility] | [address] | [place] | | | R[facility]ARDO POINT OF CARE | [address] | [address] | | | TESTS | | | [...] RODG[facility] | [address] | [place] | | | JULIANN SILVA OF CARE | [address] | [address] | | | TESTS | | | [...] | + + + + + | [facility] | [address] | [place] [address] | | | ИРИНА ANTOINE | TABITHA [...] [facility] | [address] | [place] | | | [facility] | [facility] | [address] | | | TESTS | | | [...] | + + + + + | [facility] | [address] | [place] [address] | | | SERVICES, CORE | TABITHA [...] (H) | 60 - 99 mg/dL | [facility] - | | | GLUCOSE, | [...] + + + | [facility] | [address] | [place] | | | R[facility]O POINT OF CARE | [address] | [address] | | | TESTS | | | [...] [facility] | [address] | [place] | | | R[facility]ARDO POINT OF CARE | [facility] | [address] | | | TESTS | | | | + + + + + ART LINE (03/16/2017 3:32 PM PDT) + + + | Narrative | Performed At | + + + | Teddy Kee DO, 03/16/2017 2:43 PM ARTERIAL LINE | | | Performed by: TEDDY EKE Authorized by: MELLISA HAJI | | | [...] | pause verifies correct patient, procedure, equipment, marketing support coordinator | | | and site/side marked as [...] | + + + + + | [facility] | [address] | [place] [address] | | | SERVICES, CORE | TABITHA [...] [facility] | [address] | [place] [address] | | | SERVICES, CORE | TABITHA [...] | + + + + + | [facility] | [address] [facility] | [place] [address] | | | SERVICES, CORE | PARK [...] [facility] | [address] | [place] [address] | | | SERVICES, CORE | PARK [...] | | | LABORATORY | | | [place]ORE[place] | | | SERVICES, | | [...] | + + + + + | [facility] | [address] | [place] [address] | | | ИРИНА ANTOINE | TABITHA [...] [facility] | [address] | [place] [address] | | | SERVICES, CORE | PARK [...] [facility] | [address] | [place] [address] | | | SERVICES, CORE | TABITHA [...] [facility] | [address] | [place] | | | JULIANN SILVA OF CARE | [address] | [address] | | | TESTS | | | [...] - [facility] | [address] | [place], [place] | | | R[facility]O POINT OF CARE | [address] | [address] | | | TESTS | | | [...] + + + | [facility] | [address] | [place] | | | R[facility]ARDO POINT OF CARE | [address] | [address] | | | TESTS | | | [...] [facility] | [address] | [place] | | | [facility]O POINT OF CARE | [address] | [address] | | | TESTS | | | [...] [facility] | [address] | [place] [address] | | | ИРИНА ANTOINE | TABITHA [...] | | | LABORATORY | | | [place]ORE[place] | | | SERVICES, | | [...] | + + + + + | [facility] | [address] | [place] [address] | | | SERVICES, CORE | TABITHA [...] [facility] | [address] | [place] | | | R[facility]O POINT OF CARE | [address] | [address] | | | TESTS | | | [...] [facility] | [address] | [place] [address] | | | ИРИНА ANTOINE | TABITHA [...] [facility] | [address] | [place] | | | [facility] | [address] | [address] | | | TESTS | | | | + + + + + OPERATION RECORD (03/16/2017 9:30 AM PDT) + + | Procedure Note | + + | Dale Mak MD - 03/15/2017 3:42 PM PDT Date of Service: 03/15/2017 Attending | | Surgeon:Ron Powell MD. Telesales Team Leader(s):Dale Mak MD. | | Preoperative Diagnoses: 1.Cardiogenic [...] The | | patient was transferred to [facility] for further management. At [facility], the patient continued | | to [...] cannulation with micropuncture | | wire. A 7-Sammarinese sheath was placed in an antegrade direction down the SFA for distal | | perfusion. A 19-Sammarinese arterial cannula was placed in a retrograde [...] 03/15/2017 15:23:00DT: 03/15/2017 15:42:27Job #: | | [id number] | | | |A 19-Sammarinese arterial cannula was placed in a retrograde [...] |HS/MODL | | | | | | /[id number] | + + CBC (HEMOGRAM) ONLY (03/16/2017 [...] + | [facility] | [address] | [place] [address] | | | ARASH, ИРИНА | TABITHA [...] | + + + + + | [facility] | [address] | [place] [address] | | | SERVICES, CORE | TABITHA [...] | + + + + + | [facility] | [address] | [place] [address] | | | SERVICES, CORE | PARK [...] - [facility] | [address] | [place], [place] | | | JULIANN SILVA OF CARE | [facility] | [address] | | | TESTS | | | [...] (H) | 60 - 99 mg/dL | [facility] - | | | GLUCOSE, | [...] [facility] | [address] | [place], [place] | | | RICARDO POINT OF CARE | [address] | [address] | | | TESTS | | | [...] R[facility] | [address] | [place] | | | JUL[facility]ANN SILVA [facility] | [facility] | [address] | | | TESTS | | | | + + + + + X-RAY PORTABLE CHEST 1 VIEW (03/16/2017 5:44 AM PDT) + + | Specimen | + + | | + + + + + | Narrative | Performed At | + + + | EXAM: IA CHEST 1 VIEW HISTORY: Evaluate cannula placement. heart | [facility] | | failure. COMPARISON: Yesterday FINDINGS: Endotracheal | RADIOLOGY VOICE | | tube, Flint-Олег catheter and enteric tube remain in place. [...] Note | + + | Service Account, [employer] Interface - 03/16/2017 8:27 AM PDT EXAM: IA CHEST 1 | | VIEW HISTORY: Evaluate cannula placement. heart failure.COMPARISON: YesterdayFINDINGS: | | Endotracheal tube, Flint-Олег catheter and enteric tube remain in place. [...] [facility] | [address] | [place], [place] | | | [facility] | [address] | [address] | | | TESTS | | | [...] RODG[facility] | [address] | [place], [place] | | | [facility] | [facility] | [address] | | | TESTS | | | | + + + + + XF-MK-JNU-HBPOC RT (03/16/2017 3:42 AM PDT) + + [...] | | | CA,WHOLE | | | RICRADO POINT | | | BLD,POC | | [...] RODGERS | [address] | [place], [place] | | | RICARDO POINT OF CARE | [address] | [address] | | | TESTS | | | [...] MARIA | [address] | [place], [place] | | | [facility] | [address] | [address] | | | TESTS | | | [...] | + + + + + | [facility] | [address] | [place] [address] | | | SERVICES, CORE | TABITH[address] [...] fibrin | ANA MARIA SILVA | | danetet suggesting HYPERcoagulability MA is normal. | POINT [...] R[facility] | [address] | [place] | | | RICAROD POINT OF ALEXIS | [address] | [address] | | | TESTS | | | [...] [facility] | [address] | [place] [address] | | | ИРИНА ANTOINE | TABITHA [...] | + + + + + | [facility] | [address] | [place] [address] | | | SERVICES, CORE | PARK [...] | | | LABORATORY | | | [place]OREAN | | | SERVICES, | | [...] [facility] | [address] | [place] [address] | | | SERVICES, CORE | PARK [...] [facility] | [address] | [place] [address] | | | SERVICES, CORE | TABITHA [...] | + + + + + | [facility] | [address] | [place] [address] | | | SERVICES, CORE | TABITHA [...] | + + + + + | [facility] | [address] | [place] [address] | | | SERVICES, CORE | [address] | | | + + + + + MAGNESIUM, PLASMA (03/16/2017 3:35 AM PDT) + +-------+ + + + | Component | Value | Ref Range | Performed | Pathologist | | | | | At | Signature | + +-------+ + + + | MAGNESIUM,P | 2.1 | 1.8 - 2.5 mg/dL | [facility] | | | LASMA | | | [...] | + + + + + | [facility] | [address] | [place] [address] | | | SERVICES, CORE | TABITHA [...] MARIA | [address] | [place], [place] | | | [facility] | [address] | [address] | | | TESTS | | | [...] | + + + + + | [facility] | [address] | [place] [address] | | | ARASH, ИРИНА | TABITHA [...] (H) | 60 - 99 mg/dL | [facility] - | | | GLUCOSE, | [...] MARIA | [address] | [place] | | | [facility]ARE | [address] | [address] | | | TESTS | | | [...] | + + + + + | [facility] | [address] | [place] [address] | | | SERVICES, CORE | TABITHA [...] | | | LABORATORY | | | [place]ORE[place] | | | SERVICES, | | [...] | + + + + + | Traveler | VIP | [address] | [place] [address] | | | ARASH, CORE | [address] | | | + + + + + KK-GH-NXC-HB,POC RT (03/16/2017 12:22 AM PDT) + + [...] [facility] | [address] | [place] | | | R[facility]ARDO POINT OF CARE | [address] | [address] | | | TESTS | | | [...] [facility] | [address] | [place], [place] | | | [facility]ARE | [address] | [address] | | | TESTS | | | [...] [facility] | [address] | [place] | | | [facility] | [address] | [address] | | | TESTS | | | [...] [facility] | [address] | [place], [place] | | | [facility] | [address] | [address] | | | TESTS | | | | + + + + + X-RAY PORTABLE CHEST 1 VIEW (03/15/2017 9:44 PM PDT) + + | Specimen | + + | | + + + + + | Narrative | Performed At | + + + | EXAM: IA CHEST 1 VIEW HISTORY: Evaluate new endotracheal [...] Note | + + | Service Account, [employer] In Interface - 03/16/2017 8:27 AM PDT EXAM: IA CHEST 1 | | VIEW HISTORY: Evaluate [...] [facility] | [address] | [place], [place] | | | [facility] | [facility] | [address] | | | TESTS | | | [...] (H) | 60 - 99 mg/dL | [facility] - | | | GLUCOSE, | [...] MARIA | [address] | [place], [place] | | | JULIANN [facility] OF [facility] | [address] | [address] | | | TESTS | | | [...] [facility] | [address] | [place] [address] | | | SERVICES, CORE | PARK [...] | + + + + + | [facility] | [address] | [place] [address] | | | SERVICES, CORE | TABITHA [...] | + + + + + | Traveler | VIP | [address] | [place] [address] | | | SERVICES, ИРИНА | TABITHA [...] | Ambubag and suction available at bedside. [facility] Mac 4 used to | | | visualize airway, Grade III view with old blood and new blood | | | present in laryngopharynx plus edema. A [employer] | | | catheter was [...] [facility] | [address] | [place], [place] | | | [facility] | [address] | [address] | | | TESTS | | | | + + + + + CF-WQ-BOP-HB,POC RT (03/15/2017 7:39 PM PDT) + + [...] [facility] | [address] | [place], [place] | | | JULIANN SILVA OF [facility] | [address] | [address] | | | TESTS | | | [...] [facility] | [address] | [place], [place] | | | [facility] | [address] | [address] | | | TESTS | | | [...] R[facility] | [address] | [place], [place] | | | [facility] | [facility] | [address] | | | TESTS | | | | + + + + + X-RAY PORTABLE CHEST 1 VIEW (03/15/2017 5:51 PM PDT) + + | Specimen | + + | | + + + + + | Narrative | Performed At | + + + | STUDY: IA CHEST 1 VIEW 03/15/17 17:40:08 COMPARISON: 03/15/17 [...] Interface - 03/15/2017 6:20 PM PDT STUDY: IA CHEST 1 | | VIEW 03/15/17 17:40:08COMPARISON: [...] given by: Power of | | | employment attorney Patient identity confirmed per policy: Yes Team Pause: | | | Immediatly prior to the procedure a pause per protocol was called. A | | | pause verifies correct patient, procedure, equipment, marketing support coordinator | | | and site/side marked as [...] modified Seldinger technique (a | | | rgknzeok-viep-eyz-urnlwn-nkmg-chvg-cqxskuc-caq-vsfyqyeg) was used for | | | vessel [...] Name: Ron Mckeon MRN: | | | [id number] 03/15/2017 Time: 5:26 PM Diagnosis: shock At [...] Ramon Alvarado | | | MD [place], [facility] Emergency [facility] Personal Pager: [phone] | | | | | + + + LACTATE (03/15/2017 4:49 PM PDT) + + + + + + | Component | Value | Ref Range | Performed | Pathologist | | | | | At | Signature | + + + + + + | LACTATE | 7.5 () | mmol/L | [facility] | | | | | | [...] | + + + + + | [facility] | [address] | [place] [address] | | | SERVICES, CORE | TABITHA [...] (H) | 60 - 99 mg/dL | [facility] - | | | GLUCOSE, | [...] [facility]GERS | [address] | [place], [place] | | | [facility] | [address] | [address] | | | TESTS | | | [...] RODGERS | [address] | [place], [place] | | | JULIANN SILVA OF CARE | [address] | [address] | | | TESTS | | | | + + + + + X-RAY PORTABLE CHEST 1 VIEW (03/15/2017 4:03 PM PDT) + + | Specimen | + + | | + + + + + | Narrative | Performed At | + + + | EXAM: IA CHEST 1 VIEW 03/15/17 15:42:37 HISTORY: ECMO [...] Note | + + | Service Account, [employer] In Interface - 03/15/2017 6:18 PM PDT EXAM: IA CHEST 1 | | VIEW 03/15/17 15:42:37 [...] RODGERS | [address] | [place], [place] | | | [facility] CARE | [address] | [address] | | | TESTS | | | [...] MARQUAM | [address] | [place], [place] | | | [facility] | [address] | [address] | | | TESTS | | | [...] BLUAM | [address] | [place], [place] | | | JULIANN SILVA OF [facility] | [address] | [address] | | | TESTS | | | [...] | + + + + + | [facility] | [address] | [place] [address] | | | SERVICES, CORE | TABITHA [...] | + + + + + | [facility] | [address] | [place] [address] | | | ARASH, ИРИНА | TABITHA [...] | + + + + + | [facility] | [address] | [place] [address] | | | SERVICES, CORE | PARK [...] | + + + + + | [facility] | [address] [facility] [address] | [place] [address] | | | SERVICES, CORE | TABITHA [...] | | | LABORATORY | | | [place] | | | SERVICES, | | [...] | + + + + + | [facility] | [address] | [place] [address] | | | SERVICES, CORE | TABITHA [...] Division of Cardiothoracic Surgery | | | [facility] - Mail Code L353 [address] [facility] | | | [place] [address] | | + + + X-RAY PORTABLE CHEST 1 VIEW (03/15/2017 2:32 PM PDT) + + | Specimen | + + | | + + + + + | Narrative | Performed At | + + + | STUDY: IA CHEST 1 VIEW 03/15/17 14:21:08 COMPARISON: 03/15/17. [...] Note | + + | Service Account, [employer] In Interface - 03/15/2017 2:46 PM PDT STUDY: IA CHEST 1 | | VIEW 03/15/17 14:21:08COMPARISON: [...] + + + + | PRODUCT | [id number] | | [facility] | | | UNIT [...] + + + + | EXPIRATION | [id number] | | [facility] | | | DATE [...] + + + + | BLOOD | [id number] | | [facility] | | | PRODUCT [...] [facility] | [address] | [place] [address] | | | SERVICES, | [address] [...] + + + + | PRODUCT | [id number] | | [facility] | | | UNIT [...] + + + + | EXPIRATION | [id number] | | [facility] | | | DATE [...] + + + + | BLOOD | [id number] | | [facility] | | | PRODUCT [...] [facility] | [address] | [place] [address] | | | SERVICES, | [address] [...] + + + + | PRODUCT | [id number] | | [facility] | | | UNIT [...] + + + + | EXPIRATION | [id number] | | [facility] | | | DATE [...] + + + + | BLOOD | [id number] | | [facility] | | | PRODUCT [...] [facility] | [address] | [place] [address] | | | SERVICES, | [address] [...] + + + + | PRODUCT | [id number] | | [facility] | | | UNIT [...] + + + + | EXPIRATION | [id number] | | [facility] | | | DATE [...] + + + + | BLOOD | [id number] | | [facility] | | | PRODUCT [...] | + + + + + | [facility] | [address] | [place] [address] | | | ARASH, | TABITHA ALICEA | | | | TRANSFUSION MEDICINE | | | | + + + + + [id number],[id number] RT (03/15/2017 1:23 PM PDT) + + + + + + | Component | Value | Ref Range | Performed | Pathologist | | | | | At | Signature | + + + + + + | HCO3 | 19.6 (L) | 21 - 28 mmol/L | [facility] - | | | ARTERIAL, | | [...] BLUAM | [address] | [place], [place] | | | JULIANN SIL[facility] CARE | [facility] | [address] | | | TESTS | | | [...] MARIA | [address] | [place], [place] | | | [facility] | [address] | [address] | | | TESTS | | | [...] | + + + | [facility] | [facility] | | [facility] Adult Echocardiography | CARDIOLOGY | | Laboratory [address] [place] [address] | | | [place] [address] Pt Name: | | | RON Neena MCKEON Study Date/Time 03/15/2017 / 12:54:21 | | | PMMRN: [id number] Most recent | | | prior: -Acc #: [id number] No. previous | | | echos: 0DOB: 1955 61 years Heart Rate: | | | 145 bpmHeight: Blood | | | Pressure: 90/67 mm/HgWeight: 249.0 | | | lb Gender: | | | MBSA: 2.34 m2 Order | | | ID: [id number] Software Development Intern: Vahid Parmar [facility] | | | Referring Provider: Gaurav Castellanos [...] Report electronically signed by: | | | [id number] Yajaira Johnson MD (03/15/2017, 3:38:52 PM) Final | | | | | | | | | | | | Final | | + + + + + | Procedure Note | + + | Interface, Cardiology Results - 03/15/2017 3:38 PM [facility] | | [facility] Echocardiography Laboratory [address] [place] [address] | | [place], [place] [address] Pt Name: RON Chaudhary | | MIKE Study Date/Time 03/15/2017 / 12:54:21 PMMRN: [id number] Most | | recent prior: -Acc #: [id number] No. previous echos: 0DOB: 1955 61 | | years Heart Rate: 145 bpmHeight: Blood Pressure: 90/67 | | mm/HgWeight: 249.0 lb Gender: MBSA: 2.34 m2 | | Order ID: [id number] Software Development Intern: Vahid Parmar [facility]erring Provider: | | Gaurav Castellanos Location: 12KModalities [...] values Report electronically signed by: | | [id number] Yajaira Johnson MD (03/15/2017, 3:38:52 PM) Final [...] | | | |Report electronically signed by: [id number] Yajaira Johnson MD (03/15/2017, 3:38:52 PM) | | | | | | | | Final | + + + + + + + | Performing | Address | City/State[facility] | Phone Number | | Organization | | | | + + + + + | [facility] | [address] | [place], [place] | | | CARDIOLOGY | [address] | [address] | | + + + + + X-RAY PORTABLE CHEST 1 VIEW (03/15/2017 12:46 PM PDT) + + | Specimen | + + | | + + + + + | Narrative | Performed At | + + + | STUDY: IA CHEST 1 VIEW 03/15/17 12:12:08 COMPARISON: None. [...] Note | + + | Service Account, [employer] In Interface - 03/15/2017 1:10 PM PDT STUDY: IA CHEST 1 | | VIEW 03/15/17 12:12:08COMPARISON: [...] DEPT OF | [address] | [place], [place] | | | CARDIOLOGY | [address] | [address] | | + + + + + [...] [facility] | [address] | [place] [address] | | | SERVICES, | [address] [...] [facility] | [address] | [place] [address] | | | SERVICES, | [address] [...] [facility] | [address] | [place] [address] | | | ARASH, ИРИНА | [address] [...] [facility] | [address] | [place] [address] | | | SERVICES, ИРИНА | TABITHA [...] [facility] | [address] | [place] [address] | | | SERVICES, | [address] [...] [facility] | [address] | [place] [address] | | | SERVICES, CORE | PARK [...] | + + + + + | [facility] | [address] [facility] [address] | [place] [address] | | | SERVICES, CORE | TABITHA [...] | + + + + + | [facility] | [address] | [place] [address] | | | SERVICES, CORE | TABITHA [...] | | | LABORATORY | | | [place] | | | SERVICES, | | [...] | + + + + + | Traveler | VIP | [address] | [place] [address] | | | SERVICES, CORE | [address] | | | + + + + + [id number] RT (03/15/2017 12:16 PM PDT) + + [...] EULOGIO RODGERS | [address] | [place], [place] | | | RICARDO [facility] | [address] | [address] | | | TESTS | | | [...] of unspecified type of vessel, | | knik or graft | + + | Tongue [...] 5:37 | | | | | dose, [place] 03/29/17 at 0530 | | AM PDT [...] | | | | ONCE, 1 dose, [facility] 03/19/17 at 1415 | | PM [...] | | | | ONCE, 1 dose, [facility] 03/20/17 at | | AM PDT | [...] 10:04 | | | | | dose, [place] 03/22/17 at 1000 | | AM PDT [...] | | | | First dose on [facility] 03/19/17 at | | AM PDT [...] 4:45 | | | | | dose, [facility] 03/19/17 at 1630 | | PM PDT | | | | + +-------+ +-------+---+---+ +---+---+ | | | +---+---+ + +-------+ +-------+---+---+ | furosemide (LASIX) injection 20 | Given | 03/20/20 | 20 mg | | | | mg 20 mg, intravenous, ONCE, 3:07 | | | | | dose, [facility] 03/20/17 at 0400 | | AM PDT [...] | | | | | | Starting [facility] 03/19/17 at 1900, | | | [...] PDT | | | | | Until [facility] 04/02/17 at 2030, | | | [...] | | | | ONCE, 1 dose, [place] 03/15/17 at 1815 | | PM PDT [...] | | | | | | Until [facility] 04/02/17 at 2030, severe | | [...] | | | | | 1 dose, [facility] 03/18/17 at 0130 | | AM [...]
--- OUTSIDE RECORDS SUMMARY | ~2019-01-22 | XMS | Encounter Summary ---
Demographics + + + | Address | [address] | | | [place] [address] | + + + | Home Phone [...] [place] | | | | | [address] | | + + + + + Care Team Providers + +------+ + | Care Riveting Machine Operator Tape Control Name | Role | Phone | + [...] | | | involving | [address] | [address] [place] | | | | | [place] | [place] | [place] | | | | | coronary | [address] | [address] | | | | | artery of | Phone: | Phone: | | | | | [place] heart | [phone] | [phone] | | | | | without | Fax: | Fax: | | | | | angina | [phone] | [phone] | | | | | pectoris | | | + + + + + + + Encounter Details +--------+---------+ + + + | Date | Type | Department | Care Team | Description | +--------+---------+ + + + | 12/09/ | Office | [facility] | Randy Figueroa, | Coronary artery | | 2019 | Visit | MED CTR CARD[facility]AC | MD [address] | disease involving | | | | REHABILITATION [address] | [place] [place], | [place] coronary | | | | [address] [place] | [place] [address] | artery of [place] | | | | [place] [address] | [phone] | heart without angina | | | | [phone] | | pectoris (Primary | | | [...] note might be different from the orig [facility] CARDIAC REHABILITATION [address] [facility] [address] Cardiac Rehab Discharge Date: 12/09/2018 Patient Information Patient Name: Bob Will Date of : 1955 Age: 63 y.o. Referring Provider: Randy Figueroa MD Encounter Diagnoses Code Name Primary? I25.10 Coronary artery disease involving [place] coronary artery of [place] heart without angina pectoris Yes Z98.61 Post PTCA Cardiac Rehab Phase II Leon atment Plan Bob Will (Bob) is a 62 y.o. 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 He has recently increased his metoprolol dose and is on Entresto. He arrives in electric eSentire heelchair and has been inactive. Fall Ri [...] control. Also began walking with his around [place] 3 days a week along with chasing [...] Healthy Dietary Education Date: 08/03/18 -Referral to Radio Division Officer: Date: -DVD: Healthy Eating For Life Date: [...] exercise until stable. Date: Range: -Referral to Household Refrigerator Mechanic Date: Education Points listed below- Date Completed: [...] Unforeseen circumstances makes the constant trip from [place] to not be a viable option a [...] [address] | | | | | | [address] [address], | | | | | | [place] [address] | | | | | | [phone] | | | | | | | | +--------+ + + + + documented as of this encounter Visit Diagnoses + + | Diagnosis | + + | Coronary artery disease involving [place] coronary artery of [place] heart without | | angina pectoris - Primary | + + | Post PTCA Postsurgical percutaneous transluminal coronary angioplasty status | + + documented in this encounter
--- OUTSIDE RECORDS SUMMARY | ~2019-01-22 | XMS | Encounter Summary ---
Demographics + + + | Address | [address] | | | [place] [address] | + + + | Home Phone | | + + + | Preferred Language | Unknown | + + + | Marital Status | | + + + | Orthodox Affiliation | NRP | + + + | Race | White | + + + | Ethnic Group | Not or | + + + Author + + + | Author | [facility] | + + + | Organization | [facility] | + + + | Address | Unknown | + + + | Phone | Unavailable | + + + Support + + + + + | Name | Relationship | Address | Phone | + + + + + | Venice Will | ECON | [address] | | | | | [place] [address] | | + + + + + Care Team Providers + +------+ + | Care Rate Quoting Operator Name | Role | Phone | [...] [place] | | | | | | [facility] | | | | | | [place], [place] | | | | | | [address] | | | +--------+ + + + [...]
--- OUTSIDE RECORDS SUMMARY | ~2019-01-22 | XMS | Encounter Summary ---
Demographics + + + | Address | [address] | | | [place] [address] | + + + | Home Phone [...] + + + | Author | [facility] | + + + | Organization | [facility] | + + + | Address | Unknown | + + + | Phone | Unavailable | + + + Support + + + + + | Name | Relationship | Address | Phone | + + + + + | Venice Will | ECON | [address] | | | | | [place] [address] | | + + + + + Care Team Providers + +------+ + | Care Information Coder Name | Role | Phone | + +------+ + | Chato Matson MD | PCP | | + +------+ + Encounter Details +--------+ + + + + | Date | Type | Department | Care Team | Description | +--------+ + + + + | 03/19/ | Procedure | 6A Intra Op [facility] | | | | 2016 | Pass | [facility] | | | | | | Admitting Desk | | | | | | Located on the 9th | | | | | | floor [address] [facility] | | | | | | [facility] | | | | | | [place], [place] | | | | | | [address] | | | +--------+ + + + [...]
--- OUTSIDE RECORDS SUMMARY | ~2019-01-22 | XMS | Encounter Summary ---
Demographics + + + | Address | [address] | | | [place] [address] | + + + | Home Phone | | + + + | Preferred Language | Unknown | + + + | Marital Status | | + + + | Restoration Affiliation | Unknown | + + + [...] | [place] | | | | | [address] | | + + + + + Care Team Providers + +------+ + | Care Bow Stapler Name | Role | Phone | + [...] | | | involving | [address] | [place] | | | | | [place] | [place] | [place] | | | | | coronary | [address] | [address] | | | | | artery of | Phone: | Phone: | | | | | [place] heart | [phone] | [phone] | | | | | without | Fax: | Fax: | | | | | angina | [phone] | [phone] | | | | | pectoris | | | + + + + + + + Encounter Details +--------+---------+ + + + | Date | Type | Department | Care Team | Description | +--------+---------+ + + + | 12/02/ | Office | [facility] | Randy Figueroa, | Coronary artery | | 2019 | Visit | MED CTR CARDIAC | MD [address] | disease involving | | | | REHABILITATION [address] | [place], | [place] coronary | | | | [address] [place] | [place] [address] | artery of [place] | | | | [place] [address] | [phone] | heart without angina | | | | [phone] | | pectoris (Primary | | | [...] note might be different from the orig [facility] CARDIAC REHABILITATION [address] [facility] [address] Cardiac Rehab Date: 12/02/2018 Patient Information Patient Name: Bob Will Date of : 1955 Age: 63 y.o. Encounter Diagnoses Code Name Primary? I25.10 Coronary artery disease involving [place] coronary artery of [place] heart without angina pectoris Yes Z98.61 Post [...] W | | | | | | [place], | | | | | | [place] [address] | | | | | | [phone] | | | | | | | | +--------+ + + + + documented as of this encounter Visit Diagnoses + + | Diagnosis | + + | Coronary artery disease involving [place] coronary artery of [place] heart without | | angina pectoris - Primary | + + | Post PTCA Postsurgical percutaneous transluminal coronary angioplasty status | + + documented in this encounter"
--- OUTSIDE RECORDS SUMMARY | ~2019-01-22 | XMS | Clinical Summary ---
Demographics + + + | Address | [address] [place] [address] [address] | | | [place] [address] | + + + | Home Phone | | + + + | Preferred Language | Unknown | + + + | Marital Status | | + + + | Bahai Affiliation | Unknown | + + + | Race | Unknown | + + + | Ethnic Group | Unknown | + + + Author + + + | Author | [facility] | + + + | Organization | [facility] | + + + | Address | Unknown | + + + | Phone | Unavailable | + + + Support + + +---------+ + | Name | Relationship | Address | Phone | + + +---------+ + | Venice Mckeon | ECON | Unknown | | + + +---------+ + Care Team Providers + +------+ + | Care Instrument Maker Name | Role | Phone | [...] + + | Father | | | [place] | | | | (Age | | [...] RON MCKEON Date of : 1955 | [facility] | | Performing Physician: Rocio | RADIOLOGY | | [facility] | | | | | | [...] MV A Rohan: 0.86 m/s MV Dec [place]: 3.26 m/s2 | | | MV DecT: [...] | 21.47 mmHg TR Vmax: 2.31 m/s Scrap Piler: DBS Authenticated | | | by: Rocio [place] head Report Date/Time: 11-04-2018 19:16:25 | | + + + + + | Procedure Note | + + | Sebastian, Rad Results In - 11/04/2018 7:20 PM PST Patient Name: Belkys MCKEON of | | : 5Accession: [id number] Physician: Rocio | | Alsamara INDICATIONS------ | [...] | 5.92 cmLVPWd: 1.01 cmLVOT Area: 3.17 qq8BUJA Diam: 2.01 cm%FS: 15.56 %EF(Teich): | | [...] mlLAESV Index (A-L): 42.88 ml/m2LAAs A2C: 24.92 jb6MLKTI A-L | | A2C: 95.08 mlLALs A2C: 5.54 cmLAAs A4C: 19.37 nm1WPHTR A-L A4C: 70.66 mlLALs | | A4C: 4.50 cmRAAs: 18.79 eq2MHRVG A-L: 67.38 mlRAESV MOD: 63.17 mlRALs: 4.44 | | cmTAPSE: 2.12 cmAV maxP.82 mmHgAV meanP.56 mmHgAV Vmax: 1.30 m/Emil | | Vmean: 0.88 m/Emil VTI: 25.33 cmAVA Vmax: 2.55 cm2AVA (VTI): 2.49 gb5JNYO (Vmax): | | 0.00 cm2/m2AVAI (VTI): 0.00 cm2/m2LVOT maxP.40 mmHgLVOT meanP.91 | | mmHgLVSI Dopp: 29.85 ml/m2LVSV Dopp: 63.29 mlLVOT Vmax: 1.04 m/sLVOT Vmean: 0.64 | | m/sLVOT VTI: 19.92 cmMV A Rohan: 0.86 m/sMV Dec [place]: 3.26 m/s2MV DecT: 218.32 | | msMV E Rohan: 0.71 m/sMV E/A Ratio: 0.82 MV PHT: 63.31 msMVA By PHT: 3.47 | | qs0Cismhy e': 0.04 m/sSeptal E/e': 15.51 Lateral e': 0.06 m/sLateral E/e': 10.91 | | RAP: 5 mmHgRVSP: 26.47 mmHgTR maxP.47 mmHgTR Vmax: 2.31 m/sSonographer: | | DBSAuthenticated by: Elinagwendolyn [facility] Date/Time: 11-04-2018 19:16:25IMPRESSION:1. | | This [...] A Rohan: 0.86 m/s | |MV Dec [place]: 3.26 m/s2 | |MV DecT: 218.32 ms [...] |TR Vmax: 2.31 m/s | | | |Scrap Piler: DBS | |Authenticated by: Rocio Pearl | [...] | [address] | [place] [address] | | + + + + + [...] +------+-------+ + | MEDICAID | [place] | [id number] | | | [address] | | | [place] | | | | [place] | | | [place] | | | | [address] | | | FORMSTONE FITTER | | | | | + +--------+ [...] | Self | [birth year] | Home: | [facility] [address] | | | al/Fam | | 1956 | [phone] [address] [place], | | | [place] | | | [phone] | [place] [address] | + +--------+ +--------+ + +
--- OUTSIDE RECORDS SUMMARY | ~2019-01-22 | XMS | Encounter Summary ---
Demographics + + + | Address | [address] | | | [place] [address] | + + + | Home Phone [...] | [place] | | | | | [address] | | + + + + + Care Team Providers + +------+ + | Care Galley Stripper Name | Role | Phone | + [...] | | | involving | [address] | [place] | | | | | [place] | [place] | [place], [place] | | | | | coronary | [address] | [address] | | | | | artery of | Phone: | Phone: | | | | | [place] heart | [phone] | [phone] | | | | | without | Fax: | Fax: | | | | | angina | [phone] | [phone] | | | | | pectoris | | | + + + + + + + Encounter Details +--------+---------+ + + + | Date | Type | Department | Care Team | Description | +--------+---------+ + + + | 11/18/ | Office | [facility] | Randy Figueroa, | Coronary artery | | 2019 | Visit | MED CTR CARDIAC | [address] | disease involving | | | | REHABILITATION [address] | [place], | [place] coronary | | | | [address] [place] | [place] [address] | artery of [place] | | | | [place] [address] | [phone] | heart without angina | | | | [phone] | | pectoris (Primary | | | [...] might be different from the orig [facility] CARDIAC REHABILITATION [address] [place] [facility] [address] Cardiac Rehab Date: 11/18/2018 Patient Information Patient Name: Bob Will Date of : 1955 Age: 63 y.o. Encounter Diagnoses Code Name Primary? I25.10 Coronary artery disease involving [place] coronary artery of [place] heart without angina pectoris Yes Z98.61 Post [...] | | | | | | [place] [address] | | | | | | [phone] | | | | | | | | +--------+ + + + + documented as of this encounter Visit Diagnoses + + | Diagnosis | + + | Coronary artery disease involving [place] coronary artery of [place] heart without | | angina pectoris - Primary | + + | Post PTCA Postsurgical percutaneous transluminal coronary angioplasty status | + + documented in this encounter"
--- OUTSIDE RECORDS SUMMARY | ~2019-01-22 | XMS | Encounter Summary ---
Demographics + + + | Address | [address] | | | [place] [address] | + + + | Home Phone [...] | [place] | | | | | [address] | | + + + + + Care Team Providers + +------+ + | Care Extension Worker Name | Role | Phone | [...] | | | involving | [address] | [place] | | | | | [place] | [place] | [place] | | | | | coronary | [address] | [address] | | | | | artery of | Phone: | Phone: | | | | | [place] heart | [phone] | [phone] | | | | | without | Fax: | Fax: | | | | | angina | [phone] | [phone] | | | | | pectoris | | | + + + + + + + Encounter Details +--------+---------+ + + + | Date | Type | Department | Care Team | Description | +--------+---------+ + + + | 12/02/ | Office | [facility] | Randy Figueroa, | Coronary artery | | 2019 | Visit | MED CTR CARDIAC | MD [address] [place] | disease involving | | | | REHABILITATION [address] | [place], | [place] coronary | | | | [place] | [place] [address] | artery of [place] | | | | [place] [address] | [phone] | heart without angina | | | | [phone] | | pectoris (Primary | | | [...] note might be different from the orig [facility] CARDIAC REHABILITATION [address] [facility] [address] Cardiac Rehab Date: 12/02/2018 Patient Information Patient Name: Bob Will Date of : 1955 Age: 63 y.o. Encounter Diagnoses Code Name Primary? I25.10 Coronary artery disease involving [place] coronary artery of [place] heart without angina pectoris Yes Z98.61 [...] W | | | | | | [place], | | | | | | [place] [address] | | | | | | [phone] | | | | | | | | +--------+ + + + + documented as of this encounter Visit Diagnoses + + | Diagnosis | + + | Coronary artery disease involving [place] coronary artery of [place] heart without | | angina pectoris - Primary | + + | Post PTCA Postsurgical percutaneous transluminal coronary angioplasty status | + + documented in this encounter"
--- OUTSIDE RECORDS SUMMARY | ~2019-01-22 | XMS | Encounter Summary ---
Demographics + + + | Address | [address] | | | [place] [address] | + + + | Home Phone [...] | [place] | | | | | [address] | | + + + + + Care Team Providers + +------+ + | Care Technical Business Systems Analyst Name | Role | Phone [...] | | | involving | [address] [place] | | | | | [place] | MARKO MCGUIRE | MARKO Herrera | | | | | coronary | [address] | [address] | | | | | artery of | Phone: | Phone: | | | | | [place] heart | [phone] | [phone] | | | | | without | Fax: | Fax: | | | | | angina | [phone] | [phone] | | | | | pectoris | | | + + + + + + + Encounter Details +--------+---------+ + + + | Date | Type | Department | Care Team | Description | +--------+---------+ + + + | 11/25/ | Office | [facility] | Carolina Randy, | Coronary artery | | 2019 | Visit | [facility] | MD [address] | disease involving | | | | REHABILITATION [address] [place], | [place] coronary | | | | [address] [place] | [place] [address] | artery of [place] | | | | [place] [address] | [phone] | heart without angina | | | | [phone] | | pectoris (Primary | | | [...] of this encounter Progress Jonah Coker-Cheri Kendrick, WELDING EQUIPMENT REPAIRER - 11/25/2018 1000 PDTFormatting of this note might be diff erent from the original. [facility] CARDIAC REHABILITATION [address] [facility] [address] Cardiac Rehab Date: 11/25/2018 Patient Information Patient [...] [address] | | | | | | [place], | | | | | | [place] [address] | | | | | | [phone] | | | | | | | | +--------+ + + + + documented as of this encounter Visit Diagnoses + + | Diagnosis | + + | Coronary artery disease involving [place] coronary artery of [place] heart without | | angina pectoris - Primary | + + | Post PTCA Postsurgical percutaneous transluminal coronary angioplasty status | + + documented in this encounter"
--- OUTSIDE RECORDS SUMMARY | ~2019-01-22 | XMS | Encounter Summary ---
Demographics + + + | Address | [address] [place] [address] [address] | | | [place] [address] | + + + | Home Phone | | + + + | Preferred Language | Unknown | + + + | Marital Status | | + + + | Orthodox Affiliation | Unknown | + + + | Race | Unknown | + + + | Ethnic Group | Unknown | + + + Author + + + | Author | Cassandra Blazent | + + + | Organization | [facility] | + + + | Address | Unknown | + + + | Phone | Unavailable | + + + Support + + +---------+ + | Name | Relationship | Address | Phone | + + +---------+ + | Venice Mckeon | ECON | Unknown | | + + +---------+ + Care Team Providers + +------+ + | Care Residential Program Coordinator Name | Role | Phone | [...] HF chronicity, | | | | | [address] | unspecified heart | | | | [...] RON MCKEON Date of : 1955 | [facility] | | Performing Physician: Rocio | RADIOLOGY | | Licopinola | | | | | | INDICATIONS [...] AV VTI: 25.33 | | | cm MABLE Vmax: 2.55 cm2 MABEL (VTI): 2.49 cm2 AVAI (Vmax): | | | 0.00 cm2/m2 AVAI (VTI): 0.00 cm2/m2 LVOT maxP.40 mmHg | | | LVOT meanP.91 mmHg LVSI Dopp: 29.85 ml/m2 LVSV Dopp: | | | 63.29 ml LVOT Vmax: 1.04 m/s LVOT Vmean: 0.64 m/s LVOT | | | VTI: 19.92 cm MV A Rohan: 0.86 m/s MV Dec [place]: 3.26 m/s2 | | | MV DecT: [...] | 21.47 mmHg TR Vmax: 2.31 m/s Assistant Front Office Manager: ANJANA Authenticated | | | by: Rocio Pearl Report Date/Time: 11-04-2018 19:16:25 | | + + + + + | Procedure Note | + + | Sebastian, Rad Results In - 11/04/2018 7:20 PM PST Patient Name: Belkys MCKEON of | | : 5Accession: [id number] Physician: Rocio | | Alsamara INDICATIONS------ | [...] | 5.92 cmLVPWd: 1.01 cmLVOT Area: 3.17 [id number] Diam: 2.01 cm%FS: 15.56 %EF(Teich): | | [...] mlLAESV Index (A-L): 42.88 ml/m2LAAs A2C: 24.92 [id number] A-L | | A2C: 95.08 mlLALs A2C: 5.54 cmLAAs A4C: 19.37 aa1BGRUD A-L A4C: 70.66 mlLALs | | A4C: 4.50 cmRAAs: 18.79 [id number] A-L: 67.38 mlRAESV MOD: 63.17 mlRALs: 4.44 | | cmTAPSE: 2.12 cmAV maxP.82 mmHgAV meanP.56 mmHgAV Vmax: 1.30 m/Emil | | Vmean: 0.88 m/Emil VTI: 25.33 cmAVA Vmax: 2.55 cm2AVA (VTI): 2.49 dx9ZTDF (Vmax): | | 0.00 cm2/m2AVAI (VTI): 0.00 cm2/m2LVOT maxP.40 mmHgLVOT meanP.91 | | mmHgLVSI Dopp: 29.85 ml/m2LVSV Dopp: 63.29 mlLVOT Vmax: 1.04 m/sLVOT Vmean: 0.64 | | m/sLVOT VTI: 19.92 cmMV A Rohan: 0.86 m/sMV Dec [place]: 3.26 m/s2MV DecT: 218.32 | | msMV E Rohan: 0.71 m/sMV E/A Ratio: 0.82 MV PHT: 63.31 msMVA By PHT: 3.47 | | zc2Yujovu e': 0.04 m/sSeptal E/e': 15.51 Lateral e': 0.06 m/sLateral E/e': 10.91 | | RAP: 5 mmHgRVSP: 26.47 mmHgTR maxP.47 mmHgTR Vmax: 2.31 m/sSonographer: | | DBSAuthenticated by: Rocio AlspinolaraReport Date/Time: 11-04-2018 19:16:25IMPRESSION:1. | | This was [...] A Rohan: 0.86 m/s | |MV Dec [place]: 3.26 m/s2 | |MV DecT: 218.32 ms [...] |TR Vmax: 2.31 m/s | | | |Assistant Front Office Manager: ANJANA | |Authenticated by: Rocio Licoeloy | [...] | [address] | [place] [address] | | + + + + + in this encounter Visit Diagnoses + + | Diagnosis | + + | Congestive heart failure, unspecified HF chronicity, unspecified heart failure type | | (HCC) | + +"
--- OUTSIDE RECORDS SUMMARY | ~2019-01-22 | XMS | Encounter Summary ---
Demographics + + + | Address | [address] | | | [place] [address] | + + + | Home Phone [...] [place] | | | | | [address] | | + + + + + Care Team Providers + +------+ + | Care Grain Sampler Name | Role | Phone | [...] Monitor | CARDIOLOGY [address] | [address] [place] | Interrogation | | | | [place], | [place], | (Primary Dx); RETAIL SERVICE REPRESENTATIVE-D | | | | [place] [address] | [place] [address] | (AICD) [employer] | | | | [phone] | [phone] | 10/16/17 [facility] [place]; | | | | | | [...] | | | | | | [place], | | | | | | [place] [address] | | | | | | [phone] | | | | | | | [...] | e | 23:59 PDT | Interrogation RETAIL SERVICE REPRESENTATIVE-D | procedure are in the | | [...] remote PDF scanned into | | | [facility] for remote interrogation results. Data [...] | cardiac defibrillator | + + | RETAIL SERVICE REPRESENTATIVE-D ASHLEE) [employer] 10/16/17 EULOGIO Darby | + + | Ischemic cardiomyopathy Other specified forms of chronic ischemic heart disease | + + documented in this encounter"
--- OUTSIDE RECORDS SUMMARY | ~2019-01-22 | XMS | Encounter Summary ---
Demographics + + + | Address | [address] | | | [place] [address] | + + + | Home Phone [...] | | | | | [place] [address] | | + + + + + Care Team Providers + +------+ + | Care Employee Relation Manager Name | Role | Phone | [...] | 2018 | Encounter | Services at [facility] | | | | | | [address] [facility] | | | | | | [facility] | | | | | | Mailcode: [address] | | | | | | Formerly [facility] | | | | | | [place], [place] | | | | | | [address] | | | | | | [phone] | | | +--------+ + + + [...] | + + + | Report ====== Gambling Broker: Rodríguez Fortune ([id number]), shubham | [facility] | | richy Supervisor Mill: shubham lockhart Fellow: shubham lockhart | RADIOLOGY | | Research Assistant Member: shubham lockhart Viewer: shubham lockhart Report Date: | CARDIAC IMAGING | | Oct 2017, 09:22:25 PST Patient ------- Patient: RON MCKEON | | | Acc #: [id number] | | | Ethnicity: N Status: Final [...] | | | Image Quality: Good Scanner Skiver Machine: CytoSolv Scanner | | | Model: C-Note Scanner Serial Number: [id number] Scanner Software | | | Platform: 5.3.15.3.1.0 Staff: Rodríugez Fortune Modality: MR | | | Indication Name: routine Protocol Name: CMR W Flows WO Contrast | | | Findings -------- Non-cardiac findings were reviewed by Dr. Curtis. | | | This exam was terminated prematurely and is lmiited to migration specialist images. | | | There are bilateral [...] - 10/16/2017 9:22 AM PST | | Report======Gambling Broker: Rodríguez Fortune ([id number]), shubham Rodriguezalyst: shubham | | Zackeryow: shubham Beckician: shubham Beckwithwer: shubham | | Judiort Date: 16 Oct 2017, 09:22:25 PSTPatient-------Patient: RON MCKEON | | JMedical Record Number: [id number] ID: [id number] #: [id number]: [id number]: | | Final ReportReport Number: [id number]: MaleBirthdate: 1955 (61 yrs)Study Date: 05 | | Oct 2017Study Description: CMR with Flows with ContrastReferring Physician: RAJIV | | HEITNERBlood Pressure: /Heart rate:Height (cm): 0Weight (kg): 89BMI (kg/m ): 0BSA | | (m ): 0 (Mosteller Formula)Image Quality: Kwan Mobile Skiver Machine: Solulink | | Polar OLED Model: Spiffy Society Serial Number: [id number] Software Platform: | | 5.3.15.3.1.0Staff: Rodríguez FortuneModality: MRIndication Name: routineProtocol Name: | | CMR W Flows WO ContrastFindings--------Non-cardiac findings were reviewed by | | Ever.This exam was terminated prematurely and is lmiited to migration specialist images.There are | | bilateral pleural effusions. [...] Formula) | |Image Quality: Good | |Scanner Skiver Machine: CytoSolv | |Scanner Model: C-Note | |Scanner Serial Number: [id number] | |Scanner Software Platform: 5.3.15.3.1.0 | |Staff: Rodríguez Fortune | |Modality: MR | |Indication Name: routine | |Protocol Name: CMR W Flows WO Contrast | |Findings | |-------- | |Non-cardiac findings were reviewed by Dr. Curtis. | |This exam was terminated prematurely and is lmiited to migration specialist images. | |There are bilateral pleural effusions. [...]
--- OUTSIDE RECORDS SUMMARY | ~2019-01-22 | XMS | Encounter Summary ---
Demographics + + + | Address | [address] | | | [place] [address] | + + + | Home Phone | | + + + | Preferred Language | Unknown | + + + | Marital Status | | + + + | Faith Affiliation | NRP | + + + | Race | White | + + + | Ethnic Group | Not or | + + + Author + + + | Author | [facility] | + + + | Organization | [facility] | + + + | Address | Unknown | + + + | Phone | Unavailable | + + + Support + + + + + | Name | Relationship | Address | Phone | + + + + + | Venice Will | ECON | [address] | | | | | [place] [address] | | + + + + + Care Team Providers + +------+ + | Care Rock Worker Name | Role | Phone | + +------+ + | Jamal Guerrero MD | PCP | | + +------+ + Encounter Details +--------+ + + + + | Date | Type | Department | Care Team | Description | +--------+ + + + + | 01/28/ | Document-Sc | UNKNOWN DEPARTMENT | Unknown . | | | 2011 | anned | [address] [facility] | | | | | | [facility] | | | | | | [place], [place] | | | | | | [address] | | | +--------+ + + + [...]
--- OUTSIDE RECORDS SUMMARY | ~2019-01-22 | XMS | Encounter Summary ---
Demographics + + + | Address | [address] | | | [place] [address] | + + + | Home Phone [...] | | | | | [place] [address] | | + + + + + Care Team Providers + +------+ + | Care Tool Grinder Name | Role | Phone | [...] | DECANNULATION | | 2017 | | [facility] | [address] | | | | | Admitting Desk | Tabitha Alice[place], | | | | | Located on the | [place] [address] | | | | | floor [address] [facility] | [phone] | | | | | [address] | | | | | | [place], [place] | | | | | | [address] | | | +--------+---------+ + + + [...] PM PDT CLINICAL HOSPITALIST DISCHARGE SUMMARY [facility] Discharging Provider: Aria Rojas MD [...] follow up ludmila miller with a local guard immigration in [place]. #Acute cardiogenic shock in the setting ofSTEMI [...] 44 to 32 during first day at [facility] , with addition decline to 24 [...] (noted on o utside records). Patient on Eclectic 10/325 q8 as outpatient. Was receiving scheduled [...] then take 7.5 mg (one and one-h [facility] tablets) daily starting 04/03/2017 Indications: JAVON thrombus, [...] Number [facility] Yes [address] [place] [address] Medina Roger RN 04/02/2017 11:31 Medina Roger RN, 04/02/2017 11:28 AM: Spoke with [employer], 7 day auth # [id number] has been provided. Contacted Tanisha at facility , arranging anticipated medicaid transport by stretcher at 2 pm today. Spoke with patient and souse concerning dc; they are both in agreement. Medina Roger RN, 04/02/2017 9:20 AM: Contacted Latricia Landry [phone] referencing auth# for SNF placement. Medina Roger RN, 04/01/2017 11:42 AM: Spoke with Malathi [phone], at facility admissions. Patient is accepted to facility. Prov ided information for information motor vehicle compliance analyst with [facility] Fed Latricia Landry [phone], Tanisha moncada pursue auth and get back to me. F&MS working with patient and family to add Medicaid ser vices to benefits. When added patient will have travel benefit. CM contacted Shahab Holman re Year Up training. Tamia Van, RN, 03/30/2017 1:21 PM: Received VM from Emily Terrell CM with [facility] to send referral to this location . Referral made, awaiting response. Follow Up: Schedule the following appointment(s) when you get home Follow up with [facility] . Specialties: Long-Term Facility, Intermediate Care Facility Contact information [address] [place] [id number] Follow up with LAUREN CHESTER MD. Go on 04/07/2017. Specialty: Cardiology Why: at 8:30 AM to establish Cardiology follow up Contact information [facility] [address] [address] Aria Rojas MD Division of Hospital Medicine [facility] [place] I spent 60 minutes on discharge activities on the day of discharge, including counseling of the patient and his regarding his discharge plan and in coordination of care on the ak rd with nursing, pharmacy, and Heart Failure.Electronically [...] and chronic pain who was transferred to [facility] on 03/15 s/p STEMI with cardiogeni [...] will need Life Vest follow up with guard immigration in [place] on discharge - appr [facility] cardiology assistance with coordinating. -Will [...] hematoma, but possibly some candidal infection/intertrigo. On Eclectic 10 Q8H as an outp atient. -Continue [...] 44 to 32 during first day at [facility], with addition decline to 24 th [...] Aria Rojas MD Division of Hospital Medicine [facility] Pager [phone] I spent 36 minutes on the patient [...] and chronic pain who was transferred to [facility] on 03/15 s/p STEMI with cardiogeni [...] will need Life Vest follow up with guard immigration in [place] on discharge - appr [facility] cardiology assistance with coordinating. Hyperkalemia [...] hematoma, but possibly some candidal infection/interrigo. On Eclectic Q8H as an outpa tient. -Continue nystatin [...] discharge. -CM looking for skilled placement in [place] near patient's home; appreciate assistance At risk for malnutrition Very little PO intake but reportedly improving. Previously had dobhoff feeding tube in the CVICU.Nutrition assistance appreciated. -Calorie count ongoing -Encouraging PO intake Normocytic anemia Hct dropped abruptly from 44 to 32 during first day at [facility], with addition decline to 24 th [...] Aria Rojas MD Division of Hospital Medicine [facility] [place] Pager [phone] I spent 36 minutes on the patient encounter today, >50% in counseling of the patient's on the above plan of care and in coordination of care on the arizmendi with nursing and Heart Fa ilure. Ariana Ivy DO - 03/30/2017 5:49 PM PDT CLINICAL HOSPITALIST SERVICE PROGRESS NOTE PATIENT'S NAME/MRN: Ron Mckeon/[id number] HOSPITAL DAY: #15 24-HOUR EVENTS & SUBJECTIVE: -patient complained of typical anginal chest pain and had STEMI code last night, anterior S T elevation on serial EKGs, given 325mg ASA, started on heparin drip (had been turned off fo r JAVON thrombus yesterday afternoon with warfarin therapeutic), patient went to the tree tapping laborer -on angiography, interventionalists noted "patent stent traversing [...] packet 17 g, 17 g, oral, BID, Guarav Hobbs PA-C, 17 g at 03/29/17 0849 [...] daily - Patient will follow up with guard immigration in [place] on discharge; appreciate cardiolo gy assistance with [...] stenosis (noted on o utside records, on Eclectic q8 as outpatient) Improved today -continue oxycodone [...] discharge. -CM looking for skilled placement in [place] near patient's home; appreciate assistance #Risk for malnutrition Very little PO intake, improving today. Previously had dobhoff feeding tube in the CVICU.Nu trition assistance appreciated. -Calorie count ongoing -Encouraging PO intake #Anemia, normocytic Pt noted to have anemia on H&P. Hct dropped abruptly from 44 to 32 during first day at [facility] , with addition decline to 24 [...] delivery/approval of lifevest, [facility] bed Ariana Bose DO Correspondence Renew Clerkspecialty development consultant Clinical Hospitalist and Medicine Teaching Service Division of Hospital Medicine [facility] Pager [phone] [facility] DEPARTMENT: Hosp- [phone] Place of Service: - Date of Service: 03/26/2017 CSN: [id number] Modifiers:GC Resident Involved: Yes Suggested CPT: 86455 Subsequent Visit Detailed/High complexity 35 min Cristi [...] pain episode. Discuss ed case w/ Dr. Cahd Ochoa of cardiology and troponin was trended along with the EKGs, which archie wed evolving ST elevations and rising troponin. Initially unclear if the EKG changes were n ew from prior ECG on 03/19, however given continued elevated Tn, patient's significant recent NV, we activated the tree tapping laborer. Patient received 325 mg ASA at bedside and was briefly on heparin which has since been disc ontinued. Per cardiology will continue daily 81 mg ASA, plavix and warfarin. Continue to t rend troponins as well. I spent 30 minutes with this patient with >50% of the time evaluating patient at the [facility] on numerous occasions, evaluating studies and coordinating care w/ cardiology.Electronical ly signed by Ivette Chaudhry MD at 03/30/2017 6:24 AM Gerson Oseguera MD - 03/30/2017 4:31 AM PDTCardiology Preliminary Procedure Note (Full report to follow) Primary Care Provider: Jamal Guerrero MD Referring Provider: No Referring Provider Per Patient Wood And Hardware Outfitter Staff: Katarina Ngo M.D. Procedure(s): Coronary Angiography [...] None Complications: None Hemostasis: Manual compression in tree tapping laborer. Site: [facility] Recommendations: Patient Status: Inpatient Usual post cath care. Ariana Ivy D O - 03/29/2017 9:30 AM PDT CLINICAL HOSPITALIST SERVICE PROGRESS NOTE PATIENT'S NAME/MRN: Ron Mckeon/[id number] HOSPITAL DAY: #14 24-HOUR EVENTS & SUBJECTIVE: [...] 2 Units, 2 Units, subcutaneous, Q12H (Scheduled), Ginaak geno Alvarado MD, 2 Units at 03/28/172206 [...] stenosis (noted on o utside records, on Eclectic 10/ q8 as outpatient) -continue oxycodone 10mg [...] 44 to 32 during first day at [facility] , with addition decline to 24 [...] arm, midline left arm Ariana Bose DO Correspondence Renew Clerkspecialty development consultant Clinical Hospitalist and Medicine Teaching Service Division of Hospital Medicine [facility] Pager [phone] [facility] DEPARTMENT: Hosp- [phone] Place of Service: - Date of Service: 03/26/2017 CSN: [id number] Modifiers:GC Resident Involved: Yes Suggested CPT: 73182 Subsequent Visit Detailed/High complexity 35 min Ariana Ivy DO - 03/28/2017 8: 06 AM PDT CLINICAL HOSPITALIST SERVICE PROGRESS NOTE PATIENT'S NAME/MRN: Ron Mckeon/[id number] HOSPITAL DAY: #13 24-HOUR EVENTS & SUBJECTIVE: [...] stenosis (noted on o utside records, on Eclectic 10 q8 as outpatient) Improving L groin [...] and SpCx 03/18 negative. UA done from erardon 03/25 with some LE, but no bacteria, [...] 44 to 32 during first day at [facility] , with addition decline to 24 [...] arm, midline left arm Ariana Bose DO Correspondence Renew Clerkspecialty development consultant Clinical Hospitalist and Medicine Teaching Service Division of Hospital Medicine [facility] Pager [phone] [facility] DEPARTMENT: Hosp- [phone] Place of Service: - Date of Service: 03/26/2017 CSN: [id number] Modifiers:GC Resident Involved: Yes Suggested CPT: 66444 Subsequent Visit Detailed/High complexity 35 min Ariana [...] 44 to 32 during first day at [facility] , with addition decline to 24 [...] arm, midline left arm Ariana Bose DO Correspondence Renew Clerkspecialty development consultant Clinical Hospitalist and Medicine Teaching Service Division of Hospital Medicine [facility] Pager [phone] [facility] DEPARTMENT: Hosp- [phone] Place of Service: - Date of Service: 03/26/2017 CSN: [id number] Modifiers:GC Resident Involved: Yes Suggested CPT: 81954 Subsequent Visit Detailed/High complexity 35 min Chapis [...] 44 to 32 during first day at [facility] , with addition decline to 24 [...] arm, midline left arm Ariana Bose DO Correspondence Renew Clerkspecialty development consultant Clinical Hospitalist and Medicine Teaching Service Division of Hospital Medicine [facility] Pager [phone] [facility] DEPARTMENT: Hosp- [phone] Place of Service: - Date of Service: 03/26/2017 CSN: [id number] Modifiers:GC Resident Involved: Yes Suggested CPT: 49727 Subsequent Visit Detailed/High complexity 35 min Wan Cano MD - 03/25/2017 3:07 PM PDT . Cardiovascular Intensive Care Unit Attending Progress Note CVICU D2 Assigned #[id number] ICU Admission Reason Most Recent Value ICU [...] artery. ANY X2 placed in outs surinder tree tapping laborer along with IABP. Arrived in cardiogenic shock, [...] Pager Mellisa Haji MD Admitting Provider Cardiology 35230 Zelalem Del Toro MD ICU PM Attending Anesthesiology 42775 Code Status Code Status Full Code The Advanced Care Note for this patient can be found under the notes tab in chart review. Quality section Reardon necessity reviewed: Hourly/Accurate measurement of urinary output for clinical manage ment of critically ill patients Wan Deleon MD, JOHN, ERVIN Cardiovascular Intensive Care Unit [address] [address] I have spent a total of 38 [...] xceptions/additions as noted. Date of Service: 03/25/2017 [facility] DEPARTMENT: ANE ICU CARDIAC Place of Service:- Inpatient CSN: [id number] Suggested Modifier: GC - Resident Involved Suggested CPT: TO MARKET GARDEN WORKER Jose Ramon hKan MD - 03/24/2017 10:54 AM PDT . Cardiovascular Intensive Care Unit Team Progress Note CVICU D2 Assigned #[id number] ICU Admission Reason Most Recent Value ICU [...] artery. ANY X2 placed in outs surinder tree tapping laborer along with IABP. Arrived in cardiogenic shock, [...] & Plan Patient went into VFib during tree tapping laborer procedure at [facility]. Was shocked 17 times Targeted [...] edema. Patient was difficult intubation at outside tree tapping laborer. -secretions improving, cough strong -s/p 7 days [...] Pager Mellisa Haji MD Admitting Provider Cardiology 36423 Zelalem Del Toro MD ICU PM Attending Anesthesiology 13090 The Advanced Care Note for this patient [...] by Jose Ramon Alvarado MD Author:Jose Ramon lAvarado MD [address] [address]Wtorzievxpddcs signed by Jose Ramon Alvarado MD at 03/24/2017 11:00 AM Wan Cano MD - 03/24/2017 9:47 AM PDTFormatting of this note might be diff erent from the original. Cardiovascular Intensive Care Unit Attending Progress Note CVICU D2 Assigned #[id number] ICU Admission Reason Most Recent Value ICU [...] artery. ANY X2 placed in outs surinder tree tapping laborer along with IABP. Arrived in cardiogenic shock, [...] Pager Mellisa Haji MD Admitting Provider Cardiology 38076 Zelalem Del Toro MD ICU PM Attending Anesthesiology 62915 Code Status Code Status Full Code The Advanced Care Note for this patient can be found under the notes tab in chart review. Quality section Reardon necessity reviewed: Hourly/Accurate measurement of urinary output for clinical manage ment of critically ill patients Wan Deleon MD, JOHN, ERVIN Cardiovascular Intensive Care Unit [address] [address] I have spent a total of 42 [...] xceptions/additions as noted. Date of Service: 03/24/2017 [facility] DEPARTMENT: ANE ICU CARDIAC Place of Service:- Inpatient CSN: [id number] Suggested Modifier: GC - Resident Involved Suggested CPT: TO MARKET GARDEN WORKER Author:Wan Deleon Md, MD [address] [id number] signed by Wan Deleon MD at 03/24/2017 9:49 AM PDTToTamia lieberman PA-C - 03/23/2017 11:54 PM PDTFormatting of this note might be diff erent from the original. Cardiovascular Intensive Care Unit Clinical Update Note Team: D2 Team Pager: [phone] Attending: Katey Pt Name: Ron Mckeon ID: Abbreviated HPI Abbreviated HPI / Daily Assessment Ron Mckeon is a 61 year old man with acute cardiogenic shock in the setting of acu te STEMI from thrombosed left main coronary artery. Initially had lesion in proximal LAD and distal LM, but then acutely thrombosed his left main coronary artery. ANY X2 placed in outs surinder tree tapping laborer along with IABP. Arrived in cardiogenic shock, [...] Unit Team Progress Note CVICU D2 Assigned #[id number] ICU Admission Reason Most Recent Value ICU [...] artery. ANY X2 placed in outs surinder tree tapping laborer along with IABP. Arrived in cardiogenic shock, [...] & Plan Patient went into VFib during tree tapping laborer procedure at [facility]. Was shocked 17 times Targeted [...] edema. Patient was difficult intubation at outside tree tapping laborer. -fevering nightly, cultures negative, WBC stable -secretions [...] Pager Mellisa Haji MD Admitting Provider Cardiology 27820 The Advanced Care Note for this patient [...] Ramon Alvarado MD Author:Jose Ramon Alvarado MD [address] [address] [place] [id number] signed by Jose Ramon Alvarado MD at 03/23/2017 11:41 AM Wan Cano MD - 03/23/2017 9:51 AM PDTFormatting of this note might be diff erent from the original. Cardiovascular Intensive Care Unit Attending Progress Note CVICU D2 Assigned #[id number] ICU Admission Reason Most Recent Value ICU [...] artery. ANY X2 placed in outs surinder tree tapping laborer along with IABP. Arrived in cardiogenic shock, [...] Pager Mellisa Haji MD Admitting Provider Cardiology 80507 Code Status Code Status Full Code The [...] JOHN, ERVIN Cardiovascular Intensive Care Unit [address] [address] I have spent a total of 44 [...] xceptions/additions as noted. Date of Service: 03/23/2017 [facility] DEPARTMENT: [facility] ICU CARDIAC Place of Service:- Inpatient CSN: [id number] Suggested Modifier: GC - Resident Involved Suggested CPT: TO MARKET GARDEN WORKER Tamia De La Paz PA-C - 03/22/2017 7:58 PM PDT . Cardiovascular Intensive Care Unit Clinical Update Note Team: D2 Team Pager: [phone] Attending: Abdulaziz Merrill Name: Ron Mckeon ID: [...] Unit Attending Progress Note CVICU D2 Assigned #[id number] ICU Admission Reason Most Recent Value ICU [...] Pager Mellisa Haji MD Admitting Provider Cardiology 39506 Code Status Code Status Full Code Quality section A-Line necessity reviewed: Oufw-kc-udss blood pressure monitoring Reardon necessity reviewed: Hourly/Accurate [...] Date of Service: 03/22/2017 Author:Anurag Ashby MD [address] [id number] signed by Anurag Ashby MD at 03/22/2017 11:07 AM P Macho Sellers MD - 03/22/2017 11:00 AM PDT Cardiovascular Intensive Care Unit Team Progress Note CVICU D2 Assigned #[id number] ICU Admission Reason Most Recent Value ICU [...] & Plan Patient went into VFib during tree tapping laborer procedure at [facility]. Was shocked 17 times Targeted [...] edema. Patient was difficult intubation at outside tree tapping laborer. -vanc zosyn stopped 03/17 -fever 38.3 last [...] Pager Mellisa Haji MD Admitting Provider Cardiology 05680 This patient does not have an Advanced Care Note for this Admission. Please use the Goal of care section of your ICU navigator to document the advanced care discussion. Quality section A-Line necessity reviewed: Leiz-wa-rrnc blood pressure monitoring Reardon necessity reviewed: Hourly/Accurate measurement of urinary output for clinical manage ment of critically ill patients FAST HUG Feeding: Tube Feeds: Replete @ 55 mL/hr Analgesia: APAP, hydromorphone PRN Sedation: N/A Thromboprophylaxis: Heparin infusion Head of Bed: Head of Bed >30 degrees Ulcer Prophylaxis: Famotidine Glycemic Control: insulin infusion Created by Macho Gaytan MD Author:Macho Gaytan MD [address] [address]Lfspovzbluarqn signed by Macho Gaytan MD at 03/23/2017 12:35 PM PDTT Tamia leon PA-C - 03/21/2017 7:02 PM PDTFormatting of this note might be different f rom the original. Cardiovascular Intensive Care Unit Clinical Update Note Team: D2 Team Pager: [phone] Attending: Abdulaziz eMrrill Name: Ron Mckeon ID: Abbreviated HPI Abbreviated [...] Opens eyes, nods head. Follows commands for water safety instructor and Plan: Hospital Problems Priority POA Head/Neck [...] Unit Team Progress Note CVICU D2 Assigned #[id number] ICU Admission Reason Most Recent Value ICU [...] & Plan Patient went into VFib during tree tapping laborer procedure at [facility]. Was shocked 17 times Targeted [...] edema. Patient was difficult intubation at outside tree tapping laborer. -vanc zosyn stopped 03/17 -fever 38.3 last [...] Pager Mellisa Haji MD Admitting Provider Cardiology 96502 This patient does not have an Advanced Care Note for this Admission. Please use the Goal of care section of your ICU navigator to document the advanced care discussion. Quality section A-Line necessity reviewed: Iwtr-jx-skka blood pressure monitoring CVC necessity reviewed: Hemodynamic [...] by Macho Gaytan MD Author:Macho Gaytan MD [address] [address]Odxkncgclvmaso signed by Macho Gaytan MD at 03/21/2017 1:43 PM PDTM Anurag coates MD - 03/21/2017 12:22 PM PDT Cardiovascular Intensive Care Unit Attending Progress Note CVICU D2 Assigned #[id number] ICU Admission Reason Most Recent Value ICU [...] Pager Mellisa Haji MD Admitting Provider Cardiology 90657 Code Status Code Status Full Code Quality section A-Line necessity reviewed: Kkik-ll-lbif blood pressure monitoring CVC necessity reviewed: Plan [...] Date of Service: 03/21/2017 Author:Anurag Ashby MD [address] [address] [place] [address]Dscmrsqlqxldcw signed by Anurag Ashby MD at 03/21/2017 12:22 PM P Jose Ramon Coburn MD - 03/20/2017 12:36 PM PDTFormatting of this note might be differen t from the original. Cardiovascular Intensive Care Unit Team Progress Note CVICU D2 Assigned #[id number] ICU Admission Reason Most Recent Value ICU [...] & Plan Patient went into VFib during tree tapping laborer procedure at [facility]. Was shocked 17 times Targeted [...] edema. Patient was difficult intubation at outside tree tapping laborer. -vanc zosyn stopped 03/17 -fever 38.3 last [...] Pager Mellisa Haji MD Admitting Provider Cardiology 69845 Quality section A-Line necessity reviewed: Dxth-ld-wbta blood pressure monitoring CVC necessity reviewed: Hemodynamic [...] Ramon Alvarado MD Author:Jose Ramon Alvarado MD [address] [address]Ooruxpwgavtmat signed by Jose Ramon Alvarado MD at 03/20/2017 12:49 PM PDTMoulton, Anurag Soni MD - 03/20/2017 12:18 PM PDTFormatting of this note might be differen t from the original. Cardiovascular Intensive Care Unit Attending Progress Note CVICU D2 Assigned #[id number] ICU Admission Reason Most Recent Value ICU [...] Pager Mellisa Haji MD Admitting Provider Cardiology 30582 Code Status Code Status Full Code Quality section A-Line necessity reviewed: Gulw-sh-vvyj blood pressure monitoring CVC necessity reviewed: Medication [...] Date of Service: 03/20/2017 Author:Anurag Ashby MD [address] [address]Fkanqlzdsqymtk signed by Anurag Ashby MD at 03/20/2017 12:18 PM P Raul Conte MD - 03/19/2017 11:01 PM PDTFormatting of this note might be different fro m the original. Cardiovascular Intensive Care Unit Attending Progress Note CVICU D2 Assigned #[id number] ICU Admission Reason Most Recent Value ICU [...] Pager Mellisa Haji MD Admitting Provider Cardiology 49678 Code Status Code Status Full Code Quality section A-Line necessity reviewed: Pide-zj-cutm blood pressure monitoring CVC necessity reviewed: Hemodynamic [...] Date of Service: 03/19/2017 Author:Raul Wei MD [address] [address] [place] [address]Cbudhjysotrite signed by Raul Wei MD at 03/19/2017 11:01 PM PD TMillerJose Ramon MD - 03/19/2017 4:49 PM PDT Cardiovascular Intensive Care Unit Team Progress Note CVICU D2 Assigned #[id number] ICU Admission Reason Most Recent Value ICU [...] & Plan Patient went into VFib during tree tapping laborer procedure at [facility]. Was shocked 17 times Targeted [...] edema. Patient was difficult intubation at outside tree tapping laborer. -vanc zosyn stopped 03/17 -fever 38.3 03/17 [...] Pager Mellisa Haji MD Admitting Provider Cardiology 65589 Quality section A-Line necessity reviewed: Jbub-wl-kqta blood pressure monitoring CVC necessity reviewed: Hemodynamic monitoring Reardon necessity reviewed: Hourly/Accurate measurement of urinary output for clinical manage ment of critically ill patients FAST HUG Feeding: TFs Analgesia: multimodal Sedation: propofol Thromboprophylaxis: Heparin infusion Head of Bed: Head of Bed >30 degrees Ulcer Prophylaxis: protonix Glycemic Control: insulin infusion Created by Jose Ramon Alvarado MD Author:Jose Ramon Alvarado MD [address] [address]Eukwnkktjspanh signed by Jose Ramon Alvarado MD at 03/19/2017 4:54 PM Lee Fernandez MD - 03/19/2017 2:22 PM PDTFormatting of this note might be different fr om the original. . Extracorporeal Life Support Service Daily Progress Note Pager #[phone] Type: Veno-Arterial (CPT 13380 [place] [id number]) Date of insertion: 03/15/2017 Diagnosis:Cardiogenic shock Dressing [...] Unit Attending Progress Note CVICU D2 Assigned #[id number] ICU Admission Reason Most Recent Value ICU [...] Pager Mellisa Haji MD Admitting Provider Cardiology 41093 Code Status Code Status Full Code Quality section A-Line necessity reviewed: Fder-ff-rtvl blood pressure monitoring CVC necessity reviewed: Medication [...] Date of Service: 03/19/2017 Author:Anurag Ashby MD [address] P DTJose Ramon Alvarado MD - 03/18/2017 12:56 PM PDTFormatting of this note might be differen t from the original. Cardiovascular Intensive Care Unit Team Progress Note CVICU D2 Assigned #[id number] ICU Admission Reason Most Recent Value ICU [...] & Plan Patient went into VFib during tree tapping laborer procedure at [facility]. Was shocked 17 times Targeted [...] edema. Patient was difficult intubation at outside tree tapping laborer. -vanc zosyn stopped today Abnormal CK Unknown [...] Pager Mellisa Haji MD Admitting Provider Cardiology 47359 Quality section A-Line necessity reviewed: Hyvm-js-pthj blood pressure monitoring CVC necessity reviewed: Hemodynamic monitoring Reardon necessity reviewed: Hourly/Accurate measurement of urinary output for clinical manage ment of critically ill patients FAST HUG Feeding: trickle feeds Analgesia: multimodal Sedation: propofol Thromboprophylaxis: Heparin infusion Head of Bed: Head of Bed >30 degrees Ulcer Prophylaxis: nexium Glycemic Control: insulin infusion Created by Jose Ramon Alvarado MD Author:Jose Ramon Alvarado MD [address] [address]Ezfjjonbkswuao signed by Jose Ramon Alvarado MD at 03/18/2017 1:27 PM PDTMoulton, Anurag Soni MD - 03/18/2017 11:56 AM PDTFormatting of this note might be differen t from the original. Cardiovascular Intensive Care Unit Attending Progress Note CVICU D2 Assigned #[id number] ICU Admission Reason Most Recent Value ICU [...] Pager Mellisa Haji MD Admitting Provider Cardiology 62959 Code Status Code Status Full Code Quality section A-Line necessity reviewed: Ceam-aa-zurj blood pressure monitoring CVC necessity reviewed: Medication [...] Date of Service: 03/18/2017 Author:Anurag Ashby MD [address] [address]Deednsitfjwlyd signed by Anurag Ashby MD at 03/18/2017 11:59 AM Lee Prince MD - 03/18/2017 11:37 AM PDTFormatting of this note might be different from nissa suh original. . Extracorporeal Life Support Service Daily Progress Note Pager #[phone] Type: Veno-Arterial (CPT 67325 or 78485) Diagnosis:Cardiogenic shock Dressing changed: no Dressing Changed [...] Life Support Service Daily Progress Note Pager #[phone] Type: Veno-Arterial (CPT 55560 or 98579) Date of insertion: 03/15/2017 Diagnosis:Cardiogenic shock Dressing [...] Unit Attending Progress Note CVICU D2 Assigned #[id number] ICU Admission Reason Most Recent Value ICU [...] Pager Mellisa Haji MD Admitting Provider Cardiology 28164 Quality section A-Line necessity reviewed: Iond-oo-vpgn blood pressure monitoring CVC necessity reviewed: Rapid [...] Date of Service: 03/17/2017 Author:Raul Wei MD [address] [place] [address]Gfujnmadbbbgry signed by Raul Wei MD at 03/17/2017 9:20 PM PD Anurag Kaba MD - 03/17/2017 1:58 PM PDTFormatting of this note might be different fro m the original. Cardiovascular Intensive Care Unit Attending Progress Note CVICU D2 Assigned #[id number] ICU Admission Reason Most Recent Value ICU [...] Pager Mellisa Haji MD Admitting Provider Cardiology 00958 Quality section A-Line necessity reviewed: Oxof-rw-vokd blood pressure monitoring CVC necessity reviewed: Medication [...] Date of Service: 03/17/2017 Author:Anurag Ashby MD [address] [address]Toyieumkmjndld signed by Anurag Ashby MD at 03/17/2017 2:00 PM P Mauri Calderon - 03/17/2017 1:01 PM PDTTransthoracic echocardiogram completed. Final r eport to follow. 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 Was shocked 17 times Targeted [...] edema. Patient was difficult intubation at outside tree tapping laborer. -vanc zosyn stopped today Abnormal CK Unknown [...] Pager Mellisa Haji MD Admitting Provider Cardiology 39335 This patient does not have an Advanced Care Note for this Admission. Please use the Goal of care section of your ICU navigator to document the advanced care discussion. Quality section A-Line necessity reviewed: Gwbv-kn-vyva blood pressure monitoring CVC necessity reviewed: Hemodynamic monitoring Reardon necessity reviewed: Hourly/Accurate measurement of urinary output for clinical manage ment of critically ill patients FAST HUG Feeding: Tube Feeds Analgesia: apap, oxy, hm Sedation: propofol Thromboprophylaxis: Heparin infusion Head of Bed: Head of Bed Flat Ulcer Prophylaxis: Pantoprazole Glycemic Control: insulin infusion Created by Teddy Kee Do, MS [facility] DEPARTMENT: [facility] ICU CARDIAC Place of Service:- Inpatient CSN: [id number] Suggested Modifier: GC - Resident Involved Suggested CPT: TO MARKET GARDEN WORKER Author:Teddy Kee Do, MS [address] [address]Lxrikffzjicbus signed by Teddy Kee DO, MS at 03/17/2017 6:35 PM PDTRaul Wei MD - 03/16/2017 7:38 PM PDT Cardiovascular Intensive Care Unit Attending Progress Note CVICU D2 Assigned #[id number] ICU Admission Reason Most Recent Value ICU [...] Pager Mellisa Haji MD Admitting Provider Cardiology 41974 Quality section A-Line necessity reviewed: Yjxk-pa-smqh blood pressure monitoring CVC necessity reviewed: Rapid [...] Date of Service: 03/16/2017 Author:Raul Wei MD [facility] [address] 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 Was shocked 17 times Now [...] edema. Patient was difficult intubation at outside tree tapping laborer. -bridget retana for now Physical Exam vitals [...] Pager Mellisa Haji MD Admitting Provider Cardiology 16741 Quality section A-Line necessity reviewed: Pheq-ms-yufo blood pressure monitoring CVC necessity reviewed: Hemodynamic [...] Ramon Alvarado MD Author:Jose Ramon Alvarado MD [address] [address]Mwprbwuzcwkjed signed by Jose Ramon Alvarado MD at [...] Unit Attending Progress Note CVICU D2 Assigned #[id number] ICU Admission Reason Most Recent Value ICU [...] ICU Day #2 after being transferred from [place] in [place] in acute cardiogenic archie ck following an anterior STEMI. Upon arrival to [facility], decision was made to go emergently [...] Pager Mellisa Haji MD Admitting Provider Cardiology 10032 Quality section A-Line necessity reviewed: Uynw-qs-mrvq blood pressure monitoring CVC necessity reviewed: Hemodynamic [...] Date of Service: 03/16/2017 Author:Anurag Ashby MD [address] [address]Trueutrvxscqww signed by Anurag Ashby MD at 03/16/2017 1:23 PM Lee Prince MD - 03/16/2017 9:41 AM PDTFormatting of this note might be different from t vikash original. . Extracorporeal Life Support Service Daily Progress Note Pager #[phone] Type: Veno-Arterial (CPT 08966 or 64594) Diagnosis:Cardiogenic shock Dressing changed: no Dressing Changed [...] Clinical Update Note Team: D2 Team Pager: [phone] Attending: Abdulaziz Pt Name: Ron Mckeon ID: [...] Date of Service: 03/16/2017 Mirna Berumen PA-C [facility] DEPARTMENT: [facility] ICU CARDIAC Place of Service:- Inpatient CSN: [id number] Suggested Modifier: None Suggested CPT: TO MARKET GARDEN WORKER Mirna Berumen PA-C Everardo Valladares MD - 03/15/2017 9:04 PM PDT Cardiovascular Intensive Care Unit Attending Progress Note CVICU D2 Assigned #[id number] ICU Admission Reason Most Recent Value ICU Admission reason Cardiogenic Shock filed at 03/15/2017 1531 Hospital admission dx: left anterior descending artery occlusion, needs cabg Days in ICU Days in Hospital Medical Decision Making ICU Day #1 after being transferred from [place] in [place] in acute cardiogenic archie ck following an anterior STEMI. Upon arrival to [facility], decision was made to go emergently [...] Pager Mellisa Haji MD Admitting Provider Cardiology 50345 Quality section A-Line necessity reviewed: Lhsd-ld-effx blood pressure monitoring CVC necessity reviewed: Hemodynamic [...] and the recent imaging available. Seen with PA/HUMAN RESOURCES TRAINEE Winston Cole. Please see their note for details. I reviewed the documented findings, all data and the recent imaging available. Date of Service: 03/15/2017 Author:Everardo Cintron MD [address] [address]Valprdeatfbnuy signed by Everardo Cintron MD at 03/15/2017 9:[address] - 03/15/2017 2:11 PM PDTTransthoracic echocardiogram completed. Final r eport to follow. atrick Ruiz MD,MPH - 03/15/2017 2:00 PM PDT . Extracorporeal Life Support Service Consult Service Note Pager #[phone] Date: 03/15/17 Author: Patrick Ruiz MD,MPH Consulting Attending: Mellisa Haji MD Reason for Consult: VA ECMO Consideration HPI: 61 year old male who presents this afternoon to [facility] in acute cardiogenic shock second maciej to STEMI / thrombosed L main coronary artery. He was transferred from [place]. His symptoms started this morning around 3am and was seen in [place], [place]. He was diagnosed w ith an anterior STEMI and transferred to the tree tapping laborer in [place], [place]. He was found to h ave [...] pressors (epinephrine and dopamine). On arrival [facility], he was in profound cardiogenic shock and hypoxic. His MAP was in the 40s. He was tach ycardic into the 150s. IABP was increased to 1:2. Past Medical History: Past Medical History: Diagnosis Date Cardiogenic shock ([facility]) 03/15/2017 Coronary artery disease 03/15/2017 Hypercholesterolemia [...] from cardiogenic shock. Patrick Ruiz MD, MPH charter pilot Trauma, Critical Care & Acute Care Surgery [facility] onies, Patrick Sexton MD,MPH - 03/15/2017 1:48 PM PDT . . Extracorporeal Life Support Service Initiation Note Pager #[phone] Date of service: 03/15/2017 Author: Patrick Ruiz Md,Mph ECMO Type: Veno-Arterial (CPT 83748 or 30[address]) Oxygenation index FiO2: 100 MAP: 22 Diagnosis:Cardiogenic [...] old male who presents this afternoon to [facility] in acute cardiogenic shock secondary to [...] | + +--------+ + + + | VM-ER-ZYS-HB,POC RT | Routin | 03/19/2017 | ST [...] | + +--------+ + + + | OR ECMO REV | Routin | 03/19/2017 | [...] +---+--------+ + +--------+ + + + | GR-BL-ZNM-HB,POC RT | Routin | 03/19/2017 | ST [...] | + +--------+ + + + | NQ-NN-NHM-HB,POC RT | Routin | 03/19/2017 | ST elevation | Results for this | | | e | 10:06 AM | myocardial | procedure are in the | | | | PDT | infarction involving | results section. | | | | | left main coronary | | | | | | artery (HCC) | | + +--------+ + + + | KV-ND-IAH-HB,POC RT | Routin | 03/19/2017 | ST [...] | + +--------+ + + + | TI-PF-WHB-HB,POC RT | Routin | 03/17/2017 | ST [...] | + +--------+ + + + | AJ-HZ-YTB-HB,POC RT | Routin | 03/16/2017 | ST [...] | + +--------+ + + + | PZ-QG-EXG-HB,POC RT | Routin | 03/16/2017 | ST [...] | + +--------+ + + + | NJ-GQ-IYM-HB,POC RT | Routin | 03/15/2017 | ST [...] | + +--------+ + + + | QL-SC-CHC-HB,POC RT | Routin | 03/15/2017 | ST [...] | + +--------+ + + + | WN-KN-DCN-HB,POC RT | Routin | 03/15/2017 | ST [...] | Procedure Note | + + | Katraina Ngo MD - 03/30/2017 8:34 AM PDT DATE OF PROCEDURE:March 30, 2017PATIENT | | DATA: Height: 175 cm Weight: 89 kgBSA: 2.05 [id number] PHYSICIAN:Katarina Ngo, | | .FELLOW:Gerson Mejias M.D. [...] right coronary angiography.COMPLICATIONS:None.TECHNIQUE:Right femoral artery | | 6-Japanese 10 cm [place] sheath, 6-Japanese XB 3.5 guide catheter, 5-Japanese JR4 | | catheter.DESCRIPTION OF PROCEDURE:Informed consent [...] modified Seldinger technique and a | | 5-Japanese micropuncture system, a 6-Japanese 10 cm [place] sheath was placed in the right | | femoral artery. A 6-Japanese XB 3.5 guide catheter was inserted into the ascending aorta | | over a guidewire. The guidewire was removed. The catheter was aspirated and flushed. | | The left coronary system was selectively engaged and imaged in multiple projections. A | | 5-Japanese Kymberly right 4 catheter was advanced to [...] DOSE AREA | | PRODUCT: 3749 cGy ye3SNPABOHKZFQD:Aortic pressure 87/15, mean aortic pressure 63, heart [...] 03/30/2017 04:50:01DT: | | 03/30/2017 08:34:34Job #: [id number] | |extending from it into the LAD. [...] |YDT/MODL | | | | | | /[id number] | + + CAPILLARY BLOOD GLUCOSE (NO [...] + + + | [facility] | [address] | [place], [place] | | | JULIANN SILVA OF ALEXIS | [address] | [address] | | | TESTS | | | [...] [facility] | [address] | [place] [address] | | | SERVICES, CORE | PARK [...] [facility] | [address] | [place] [address] | | | SERVICES, CORE | PARK [...] [facility] | [address] | [place] [address] | | | SERVICES, CORE | PARK [...] | | | LABORATORY | | | CONGOLESE | | | SERVICES, | | | [...] | + + + + + | [facility] | [address] | [place] [address] | | | SERVICES, CORE | TABITHA [...] | + + + + + | [facility] | [address] | [place] [address] | | | SERVICES, CORE | PARK [...] [facility] | [address] | [place] [address] | | | ИРИНА ANTOINE | TABITHA [...] + + + | [facility] | [address] | [place], [place] | | | RICARDO POINT OF CARE | [address] | [address] | | | TESTS | | | [...] [facility] | [address] | [place], [place] | | | R[facility]ARDO POINT OF CARE | [address] | [address] | | | TESTS | | | [...] ANA [facility] | [address] | [place], [place] | | | R[facility]ARDO POINT OF CARE | [address] | [address] | | | TESTS | | | [...] | + + + + + | [facility] | [address] | [place] [address] | | | SERVICES, CORE | PARK [...] | | | LABORATORY | | | CONGOLESE | | | SERVICES, | | | [...] [facility] | [address] | [place] [address] | | | SERVICES, CORE | [address] | | | + + + [...] | + + + + + | [facility] | [address] | [place] [address] | | | ARASH, ИРИНА | [address] | | | + + + + + MAGNESIUM, PLASMA (04/01/2017 3:43 AM PDT) + +-------+ + + + | Component | Value | Ref Range | Performed | Pathologist | | | | | At | Signature | + +-------+ + + + | MAGNESIUM,P | 2.2 | 1.8 - 2.5 mg/dL | [facility] | | | FEI | | | [...] | + + + + + | [facility] | [address] | [place] [address] | | | SERVICES, CORE | PARK [...] (H) | 70 - 99 mg/dL | [facility] - | | | GLUCOSE, | [...] [facility] | [address] | [place], [place] | | | JULIANN SILVA OF CARE | [address] | [address] | | | TESTS | | | [...] [facility] | [address] | [place], [place] | | | JULIANN SILVA OF CARE | [facility] | [address] | | | TESTS | | | [...] (H) | 70 - 99 mg/dL | [facility] - | | | GLUCOSE, | [...] [facility] | [address] | [place], [place] | | | JULIANN SILVA OF CARE | [address] | [address] | | | TESTS | | | [...] [facility] | [address] | [place], [place] | | | GURINDER SILVA | [facility] | [address] | | | TESTS | | | [...] [facility] | [address] | [place] [address] | | | ИРИНА ANTOINE | TABITHA [...] | | | LABORATORY | | | CONGOLESE | | | SERVICES, | | | [...] | + + + + + | [facility] | [address] | [place] [address] | | | SERVICES, CORE | PARK [...] | + + + + + | [facility] | [address] | [place] [address] | | | SERVICES, CORE [...] 2.4 | 1.8 - 2.5 mg/dL | [facility] | | | DENISEMA | | | [...] | + + + + + | [facility] | [address] | [place] [address] | | | ARASH, CORE | PARK [...] [facility] | [address] | [place] [address] | | | SERVICES, CORE | TABITHA [...] - [facility] | [address] | [place], [place] | | | RICARDO POINT OF CARE | [address] | [address] | | | TESTS | | | [...] | | | LABORATORY | | | CONGOLESE | | | SERVICES, | | | [...] | + + + + + | [facility] | [address] | [place] [address] | | | ИРИНА ANTOINE | TABITHA [...] DEPT OF | [address] | [place], [place] | | | CARDIOLOGY | [address] | [address] | | + + + + + [...] [facility] | [address] | [place], [place] | | | RICARDO POINT OF CARE | [address] | [address] | | | TESTS | | | [...] | | | LABORATORY | | | CONGOLESE | | | SERVICES, | | | [...] + + | [facility] | [address] | [place] [address] | | | SERVICES, CORE | PARK [...] LABORATORY | [address] | [place] [address] | | | SERVICES, CORE | TABITHA [...] rmed At | + +------ + | [facility] | [facility] | | [facility] Adult Echocardiography | CARDI OLOGY | | Laboratory [address] [place] [address], | | | [place] [address] Pt Name: | | | RON MCKEON Study Date/Time 03/30/2017 / 10:44:00 | | | AMMRN: [id number] Most recent | | | prior: 03/19/17cc #: [id number] No. previous | | | echos: 3DOB: 1955 61 years Heart | | | Rate: 70 bpmHeight: 68.0 in | | | Blood Pressure: 100/55 mm/HgWeight: 197.0 | | | lb Gender: | | | MBSA: 2.03 m2 Order | | | ID: [id number] Soft Sugar Supervisor: Shahab Sutton | | | RDCSSonographer 2: Karly Gayle Referring Provider: Ariana | | | [facility] Location: 11KModalities Performed: 2D, Color flow, [...] patient's significant recent [place], we activated the tree tapping laborer. Patient | | | history has been [...] Report electronically signed by: | | | [id number] Jordon Neville MD (03/30/2017, 2:04:56 PM) Final | | | | | |Wall Scoring: | | | | | | | | |Report electronically signed by: [id number] Jordon Neville MD (03/30/2017, 2:04:56 PM) | | | | | | | | | | | | Final | | + +------ + + + | Procedure Note | + + | Interface, Cardiology Results - 03/30/2017 2:04 PM [facility] | | [facility] Echocardiography Laboratory [address] [place] [address] | | [place], [place] [address] Pt Name: RON Chaudhary | | MIKE Study Date/Time 03/30/2017 / 10:44:00 AMMRN: [id number] Most | | recent prior: 03/19/17 #: [id number] No. previous echos: 3DOB: | | 1955 61 years Heart Rate: 70 bpmHeight: 68.0 in Blood | | Pressure: 100/55 mm/HgWeight: 197.0 lb Gender: MBSA: | | 2.03 m2 Order ID: [id number] Soft Sugar Supervisor: Shahab Sutton | | RDCSSonographer 2: Karly Majro Provider: Ariana Sharpe Location: | | 11KModalities [...] patient's significant recent [place], we activated the tree tapping laborer. Patient history has been | | obtained [...] Scoring: Report | | electronically signed by: [id number] Jordon Neville MD (03/30/2017, 2:04:56 PM) Final [...] | | | |Report electronically signed by: [id number] Jordon Neville MD (03/30/2017, 2:04:56 PM) | | | | | | | | Final | + + + + + + + | Performing | Address | City/State/Zipcode | Phone Number | | Organization | | | | + + + + + | [facility] | [address] | [place], [place] | | | CARDIOLOGY | [address] | [address] | | + + + + + [...] [facility] | [address] | [place], [place] | | | RICARDO POINT OF CARE | [address] | [address] | | | TESTS | | | [...] | + + + + + | [facility] | [address] | [place] [address] | | | SERVICES, CORE | TABITHA [...] MARIA | [address] | [place], [place] | | | JULIANN SILVA OF ALEXIS | [address] | [address] | | | TESTS | | | [...] + | [facility] | [address] | [place], [place] | | | CARDIOLOGY | [address] | [address] | | + + + + + [...] | | | LABORATORY | | | CONGOLESE | | | SERVICES, | | | [...] [facility] | [address] | [place] [address] | | | SERVICES, CORE | PARK [...] [facility] | [address] | [place] [address] | | | SERVICES, CORE | TABITHA [...] | + + + + + | [facility] | [address] | [place] [address] | | | SERVICES, CORE | [address] | | | + + + + + 12 LEAD ECG (03/30/2017 2:47 AM PDT) + + + + + + | Component | Value | Ref Range | Performed | Pathologist | | | | | At | Signature | + + + + + + | VENTRICULAR | 93 | bpm | [facility] | | | RATE | | [...] DEPT OF | [address] | [place], [place] | | | CARDIOLOGY | [address] | [address] | | + + + + + [...] DEPT OF | [address] | [place], [place] | | | CARDIOLOGY | [address] | [address] | | + + + + + [...] | + + + + + | [facility] | [address] | [place] [address] | | | SERVICES, CORE | PARK [...] | + + + + + | [facility] | [address] | [place] [address] | | | SERVICES, CORE | TABITHA [...] | + + + + + | [facility] | [address] | [place] [address] | | | ARASH, ИРИНА | PARK [...] [facility] | [address] | [place] [address] | | | SERVICES, CORE | PARK [...] MARIA | [address] | [place], [place] | | | JULAINN SILVA OF [facility] | [address] | [address] | | | TESTS | | | [...] | + + + + + | [facility] | [address] | [place] [address] | | | SERVICES, CORE | TABITHA [...] [facility] OF | [address] | [place], [place] | | | CARDIOLOGY | [address] | [address] | | + + + + + [...] - [facility] | [address] | [place], [place] | | | RICARDO POINT OF CARE | [address] | [address] | | | TESTS | | | [...] [facility] | [address] | [place], [place] | | | RICARDO POINT OF [facility] | [address] | [address] | | | TESTS | | | [...] | + + + + + | [facility] | [address] | [place] [address] | | | SERVICES, CORE | TABITHA [...] [facility] | [address] | [place], [place] | | | RICARDO POINT OF CARE | [address] | [address] | | | TESTS | | | [...] [facility] | [address] | [place] [address] | | | SERVICES, CORE | PARK [...] | | | LABORATORY | | | CONGOLESE | | | SERVICES, | | | [...] | + + + + + | [facility] | [address] | [place] [address] | | | SERVICES, CORE | TABITHA [...] ranges for full anticoagulation: INR for | [facility] | | Venous Thromboembolism (2.0 - 3.0) INR INR | LABORATORY | | for most patients with mech. valves (2.5 - 3.5) INR | ARASH, CORE | + + + + + + + + | Performing | Address | City/State/Zipcode | Phone Number | | Organization | | | | + + + + + | [facility] | [address] | [place] [address] | | | ARASH, ИРИНА | TABITHA [...] | + + + + + | [facility] | [address] | [place] [address] | | | SERVICES, CORE | TABITHA [...] | + + + + + | [facility] | [address] | [place] [address] | | | ARASH, ИРИНА | TABITHA [...] | + + + + + | [facility] | [address] | [place] [address] | | | SERVICES, CORE | TABITHA [...] [facility] | [address] | [place], [place] | | | JULIANN SILVA OF ALEXIS | [address] | [address] | | | TESTS | | | [...] ANA MAR[facility] | [address] | [place], [place] | | | JULIANN SILVA OF [facility] | [facility] | [address] | | | TESTS | | | [...] | | | LABORATORY | | | CONGOLESE | | | SERVICES, | | | [...] | + + + + + | [facility] | [address] | [place] [address] | | | ARASH, ИРИНА | PARK [...] [facility] | [address] | [place] [address] | | | SERVICES, CORE | PARK [...] | | | LABORATORY | | | CONGOLESE | | | SERVICES, | | | [...] | + + + + + | [facility] | [address] | [place] [address] | | | SERVICES, CORE | TABITHA [...] [facility] | [address] | [place], [place] | | | JULIANN SILVA OF CARE | [address] | [address] | | | TESTS | | | [...] [facility] | [address] | [place], [place] | | | JULIANN SILVA OF CARE | [address] | [address] | | | TESTS | | | [...] + + | [facility] | [address] | [place] [address] | | | SERVICES, ИРИНА | TABITHA [...] | | | LABORATORY | | | CONGOLESE | | | SERVICES, | | | [...] + + | [facility] | [address] | [place] [address] | | | SERVICES, CORE | PARK [...] | + + + + + | [facility] | [address] | [place] [address] | | | SERVICES, CORE | PARK [...] | + + + + + | [facility] | [address] | [place] [address] | | | SERVICES, CORE | [address] | | | + + + + + MAGNESIUM, PLASMA (03/28/2017 4:13 AM PDT) + +---------+ + + + | Component | Value | Ref Range | Performed | Pathologist | | | | | At | Signature | + +---------+ + + + | MAGNESIUM,P | 2.7 (H) | 1.8 - 2.5 mg/dL | [facility] | | | DENISEMA | | | [...] | + + + + + | [facility] | [address] | [place] [address] | | | SERVICES, CORE | PARK [...] RODGERS | [address] | [place], [place] | | | JULIANN SILVA OF [facility] | [address] | [address] | | | TESTS | | | [...] RODGERS | [address] | [place], [place] | | | [facility] | [address] | [address] | | | TESTS | | | [...] MARIA | [address] | [place], [place] | | | JULIANN SILVA OF [facility] | [address] | [address] | | | TESTS | | | [...] ANA MARIA | [address] | [place], [place] | | | JULIANN SILVA OF [facility] | [address] | [address] | | | TESTS | | | [...] [facility] | [address] | [place] [address] | | | SERVICES, CORE | PARK [...] | + + + + + | [facility] | [address] | [place] [address] | | | SERVICES, CORE | TABITHA [...] | | | LABORATORY | | | CONGOLESE | | | SERVICES, | | | [...] [facility] | [address] | [place] [address] | | | SERVICES, CORE | PARK [...] | + + + + + | [facility] | [address] | [place] [address] | | | SERVICES, CORE | PARK [...] | + + + + + | [facility] | [address] | [place] [address] | | | SERVICES, CORE | TABITHA [...] - MARQUAM | [address] | [place], [place] | | | [facility] | [address] | [address] | | | TESTS | | | [...] + + + | [facility] | [address] | [place], [place] | | | [facility] | [address] | [address] | | | TESTS | | | [...] | | | LABORATORY | | | CONGOLESE | | | SERVICES, | | | [...] | + + + + + | [facility] | [address] | [place] [address] | | | SERVICES, CORE | TABITHA [...] MARRANDIAM | [address] | [place], [place] | | | JULIANN SILVA OF [facility] | [address] | [address] | | | TESTS | | | | + + + + + RAINBOW HOLD TUBE - GREEN TOP (03/26/2017 3:50 AM PDT) + + | Specimen | + + | Blood | + + + + + + + | Performing | Address | City/State/Zipcode | Phone Number | | Organization | | | | + + + + + | [facility] | [address] | [place] [address] | | | SERVICES, CORE | TABITHA [...] | + + + + + | [facility] | [address] | [place] [address] | | | SERVICES, CORE | PARK [...] | + + + + + | [facility] | [address] | [place] [address] | | | ИРИНА ANTOINE | TABITHA [...] | | | LABORATORY | | | CONGOLESE | | | SERVICES, | | | [...] [facility] | [address] | [place] [address] | | | SERVICES, CORE | TABITHA [...] | + + + + + | [facility] | [address] | [place] [address] | | | SERVICES, CORE | TABITHA [...] [facility] | [address] | [place] [address] | | | SERVICES, CORE | PARK [...] | [facility] | | considered for monitoring joint terminal attack controller glycemic control in patients with: | LABORATORY [...] [facility] | [address] | [place] [address] | | | SERVICES, SPECIAL | PARK [...] + + + + + | [facility] | [address] | [place] [address] | | | SERVICES, CORE | TABITHA [...] MARQUAM | [address] | [place], [place] | | | [facility] | [address] | [address] | | | TESTS | | | [...] [facility] | [address] | [place], [place] | | | [facility] | [address] | [address] | | | TESTS | | | [...] | + + + + + | [facility] | [address] | [place] [address] | | | SERVICES, CORE | TABITHA [...] | [facility] | | | GRAVITY | [place] performed by | | LABORATORY | | [...] | + + + + + | [facility] | [address] | [place] [address] | | | SERVICES, CORE | TABITHA [...] + | [facility] | [address] | [place] [address] | | | [place] | | | [...] MARQUAM | [address] | [place], [place] | | | [facility] | [address] | [address] | | | TESTS | | | [...] RODGERS | [address] | [place], [place] | | | [facility] | [address] | [address] | | | TESTS | | | [...] | + + + + + | [facility] | [address] | [place] [address] | | | ИРИНА ANTOINE | TABITHA [...] | + + + + + | [facility] | [address] | [place] [address] | | | ИРИНА ANTOINE | TABITHA [...] ranges for full anticoagulation: INR for | [facility] | | Venous Thromboembolism (2.0 - 3.0) INR INR | LABORATORY | | for most patients with mech. valves (2.5 - 3.5) INR | ИРИНА ANTOINE | + + + + + + + + | Performing | Address | City/State/Zipcode | Phone Number | | Organization | | | | + + + + + | [facility] | [address] | [place] [address] | | | ИРИНА ANTOINE | TABITHA [...] [facility] | [address] | [place] [address] | | | SERVICES, CORE | PARK [...] | | | LABORATORY | | | CONGOLESE | | | SERVICES, | | | [...] | + + + + + | [facility] | [address] | [place] [address] | | | SERVICES, CORE | PARK [...] | + + + + + | [facility] | [address] | [place] [address] | | | SERVICES, CORE | PARK [...] MARQUAM | [address] | [place], [place] | | | JULIANN SILVA OF CARE | [address] | [address] | | | TESTS | | | [...] - MARQUAM | [address] | [place], [place] | | | JULIANN SILVA OF CARE | [address] | [address] | | | TESTS | | | [...] RODGERS | [address] | [place], [place] | | | [facility] | [address] | [address] | | | TESTS | | | [...] MARQUAM | [address] | [place], [place] | | | JULIANN SILVA OF CARE | [address] | [address] | | | TESTS | | | [...] [facility] | [address] | [place] [address] | | | SERVICES, CORE | PARK [...] | + + + + + | [facility] | [address] | [place] [address] | | | SERVICES, CORE | TABITHA [...] BLUAM | [address] | [place], [place] | | | JULIANN SILVA OF CARE | [address] | [address] | | | TESTS | | | [...] | | | attempt. Midline lot number [id number]; there was + blood | | | [...] RODGERS | [address] | [place], [place] | | | JULIANN SILVA OF [facility] | [address] | [address] | | | TESTS | | | [...] MARQUAM | [address] | [place], [place] | | | [facility] | [address] | [address] | | | TESTS | | | [...] | + + + + + | [facility] | [address] | [place] [address] | | | SERVICES, CORE | TABITHA [...] (H) | 70 - 99 mg/dL | [facility] - | | | GLUCOSE, | [...] RODGERS | [address] | [place], [place] | | | JULIANN SILVA OF [facility] | [facility] | [address] | | | TESTS | | | [...] MARIA | [address] | [place], [place] | | | JULIANN S[facility] | [address] | [address] | | | TESTS | | | [...] MARIA | [address] | [place], [place] | | | [facility] PO[facility]ARE | [facility] | [address] | | | TESTS | | | [...] (H) | 70 - 99 mg/dL | [facility] - | | | GLUCOSE, | [...] RODGERS | [address] | [place], [place] | | | JULIANN SILVA OF [facility] | [facility] | [address] | | | TESTS | | | [...] | + + + + + | [facility] | [address] | [place] [address] | | | SERVICES, CORE | TABITHA [...] | + + + + + | [facility] | [address] | [place] [address] | | | SERVICES, CORE | TABITHA [...] [facility] | [address] | [place] [address] | | | SERVICES, CORE | TABITHA [...] | | | LABORATORY | | | CONGOLESE | | | SERVICES, | | | [...] | + + + + + | [facility] | [address] | [place] [address] | | | SERVICES, CORE | TABITHA [...] | + + + + + | [facility] | [address] | [place] [address] | | | ИРИНА ANTOINE | TABITHA [...] ANA MARIA | [address] | [place], [place] | | | JULIANN SILVA OF CARE | [address] | [address] | | | TESTS | | | [...] (H) | 70 - 99 mg/dL | [facility] - | | | GLUCOSE, | [...] RODGERS | [address] | [place], [place] | | | JULIANN SILVA OF [facility]ARE | [address] | [address] | | | TESTS | | | [...] MARQUAM | [address] | [place], [place] | | | JULIANN SILVA OF CARE | [address] | [address] | | | TESTS | | | [...] | [facility] | [address] | [place], [place] | | | RICARDO AMERY OF [facility] | [address] | [address] | | | TESTS | | | [...] | + + + + + | [facility] | [address] | [place] [address] | | | SERVICES, CORE | TABITHA [...] MARQUAM | [address] | [place], [place] | | | [facility] | [address] | [address] | | | TESTS | | | [...] ANA MARIA | [address] | [place], [place] | | | [facility] | [address] | [address] | | | TESTS | | | [...] | + + + + + | [facility] | [address] | [place] [address] | | | SERVICES, CORE | TABITHA [...] RODGERS | [address] | [place], [place] | | | JULIANN SILVA OF [facility] | [facility] | [address] | | | TESTS | | | [...] MARQUAM | [address] | [place], [place] | | | JULIANN SILVA OF CARE | [address] | [address] | | | TESTS | | | [...] (H) | 70 - 99 mg/dL | [facility] - | | | GLUCOSE, | [...] MARQUAM | [address] | [place], [place] | | | R[facility]ARDO POINT OF [facility] | [address] | [address] | | | TESTS | | | [...] RODGERS | [address] | [place], [place] | | | JULIANN SILVA OF [facility] | [facility] | [address] | | | TESTS | | | [...] MARIA | [address] | [place], [place] | | | [facility] POINT OF [facility] | [address] | [address] | | | TESTS | | | [...] [facility] | [address] | [place] [address] | | | SERVICES, CORE | PARK [...] | + + + + + | [facility] | [address] | [place] [address] | | | SERVICES, CORE | PARK [...] | + + + + + | [facility] | [address] | [place] [address] | | | SERVICES, CORE | TABITHA [...] | | | LABORATORY | | | CONGOLESE | | | SERVICES, | | | [...] [facility] | [address] | [place] [address] | | | SERVICES, CORE | PARK [...] | + + + + + | [facility] | [address] | [place] [address] | | | SERVICES, CORE | TABITHA [...] (H) | 70 - 99 mg/dL | [facility] - | | | GLUCOSE, | | [...] MARIA | [address] | [place], [place] | | | JULIANN SILVA OF [facility] | [facility] | [address] | | | TESTS | | | [...] MARIA | [address] | [place], [place] | | | JULIANN SILVA OF [facility] | [facility] | [address] | | | TESTS | | | [...] (H) | 70 - 99 mg/dL | [facility] - | | | GLUCOSE, | [...] MARIA | [address] | [place], [place] | | | [facility] PO[facility] | [address] | [address] | | | TESTS | | | [...] + + | Performing | Address | City[facility]State[facility] | Phone Number | | Organization | | | | + + + + + | [facility] | [address] | [place], [place] | | | JULIANN SILVA OF [facility] | [facility] | [address] | | | TESTS | | | [...] BLUAM | [address] | [place], [place] | | | JULIANN SILVA OF [facility] | [facility] | [address] | | | TESTS | | | [...] (H) | 70 - 99 mg/dL | [facility] - | | | GLUCOSE, | [...] MARIA | [address] | [place], [place] | | | [facility] | [address] | [address] | | | TESTS | | | [...] [facility] | [address] | [place] [address] | | | SERVICES, CORE | PARK [...] - MARQUAM | [address] | [place], [place] | | | JULIANN SILVA OF CARE | [facility] | [address] | | | TESTS | | | [...] RODGERS | [address] | [place], [place] | | | [facility] PO[facility]ARE | [address] | [address] | | | TESTS | | | [...] MARQUAM | [address] | [place], [place] | | | JULIANN SILVA OF [facility] | [address] | [address] | | | TESTS | | | [...] - MARQUAM | [address] | [place], [place] | | | JULIANN SILVA [facility] | [address] | [address] | | | TESTS | | | [...] + + + | [facility] | [address] | [place], [place] | | | [facility] PO[facility]ARE | [address] | [address] | | | TESTS | | | [...] [facility] | [address] | [place] [address] | | | ARASH, ИРИНА | TABITHA [...] MARQUAM | [address] | [place], [place] | | | J[facility]ANN [facility] | [address] | [address] | | | TESTS | | | [...] RODGERS | [address] | [place], [place] | | | [facility] PO[facility]ARE | [address] | [address] | | | TESTS | | | [...] MARQUAM | [address] | [place], [place] | | | JULIANN SILVA [facility]ARE | [address] | [address] | | | TESTS | | | [...] MARQUAM | [address] | [place], [place] | | | [facility] | [address] | [address] | | | TESTS | | | [...] RODGERS | [address] | [place], [place] | | | [facility] PO[facility] | [address] | [address] | | | TESTS | | | [...] MARQUAM | [address] | [place], [place] | | | HILL, POINT OF CARE | [address] | [address] | | | TESTS | | | [...] [facility] | [address] | [place] [address] | | | SERVICES, | [address] [...] | + + + + + | [facility] | [address] | [place] [address] | | | SERVICES, | [address] [...] + + + + | PRODUCT | [id number] | | [facility] | | | UNIT [...] + + + + | EXPIRATION | [id number] | | [facility] | | | DATE [...] + + + + | BLOOD | [id number] | | [facility] | | | PRODUCT [...] [facility] | [address] | [place] [address] | | | SERVICES, | [address] [...] [facility] | [address] | [place] [address] | | | SERVICESИРИНА | [address] [...] | + + + + + | [facility] | [address] | [place] [address] | | | SERVICES, CORE | PARK [...] | + + + + + | [facility] | [address] | [place] [address] | | | ИРИНА ANTOINE | TABITHA [...] | + + + + + | [facility] | [address] | [place] [address] | | | SERVICES, CORE | TABITHA [...] [facility] | [address] | [place] [address] | | | SERVICES, CORE | PARK [...] | | | LABORATORY | | | CONGOLESE | | | SERVICES, | | | [...] | + + + + + | [facility] | [address] | [place] [address] | | | SERVICES, CORE | PARK [...] MARIA | [address] | [place], [place] | | | JULIANN SILVA OF CARE | [facility] | [address] | | | TESTS | | | [...] (H) | 70 - 99 mg/dL | [facility] - | | | GLUCOSE, | [...] RODGERS | [address] | [place], [place] | | | JULIANN SILVA OF CARE | [facility] | [address] | | | TESTS | | | [...] MARIA | [address] | [place], [place] | | | J[facility]ANN [facility] | [address] | [address] | | | TESTS | | | [...] ANA MARIA | [address] | [place], [place] | | | JULIANN SILVA OF CARE | [facility] | [address] | | | TESTS | | | [...] (H) | 70 - 99 mg/dL | [facility] - | | | GLUCOSE, | [...] RODGERS | [address] | [place], [place] | | | JULIANN SILVA OF CARE | [facility] | [address] | | | TESTS | | | [...] MARIA | [address] | [place], [place] | | | JULIANN S[facility] | [address] | [address] | | | TESTS | | | [...] MARIA | [address] | [place], [place] | | | JULIANN SILVA OF CARE | [facility] | [address] | | | TESTS | | | [...] (H) | 70 - 99 mg/dL | [facility] - | | | GLUCOSE, | [...] RODGERS | [address] | [place], [place] | | | JULIANN SILVA OF CARE | [address] | [address] | | | TESTS | | | [...] MARIA | [address] | [place], [place] | | | [facility] | [address] | [address] | | | TESTS | | | [...] | | | LABORATORY | | | CONGOLESE | | | SERVICES, | | | [...] | + + + + + | [facility] | [address] | [place] [address] | | | SERVICES, CORE | PARK [...] MARQUAM | [address] | [place] | | | JULIANN SILVA OF CARE | [address] | [address] | | | TESTS | | | [...] MARQUAM | [address] | [place], [place] | | | J[facility]ANN [facility] | [address] | [address] | | | TESTS | | | [...] (H) | 70 - 99 mg/dL | [facility] - | | | GLUCOSE, | [...] RODGERS | [address] | [place], [place] | | | J[facility]IANN [facility] | [address] | [address] | | | TESTS | | | [...] on the 1 attempt. Midline lot number [id number]; there was + | | | blood [...] MARQUAM | [address] | [place], [place] | | | JULIANN SILVA OF CARE | [facility] | [address] | | | TESTS | | | [...] RODGERS | [address] | [place], [place] | | | JULIANN SIL[facility]ARE | [address] | [address] | | | TESTS | | | [...] | + + + + + | [facility] | [address] | [place] [address] | | | SERVICES, CORE | PARK [...] + + + | [facility] | [address] | [place], [place] | | | R[facility]ARDO POINT OF CARE | [address] | [address] | | | TESTS | | | [...] | + + + + + | [facility] | [address] | [place] [address] | | | SERVICES, CORE | PARK [...] MARIA | [address] | [place], [place] | | | J[facility]IANN [facility] | [address] | [address] | | | TESTS | | | [...] MARIA | [address] | [place], [place] | | | JULIANN SILVA OF [facility] | [facility] | [address] | | | TESTS | | | [...] (H) | 70 - 99 mg/dL | [facility] - | | | GLUCOSE, | [...] RODGERS | [address] | [place], [place] | | | R[facility]ARDO POINT OF CARE | [address] | [address] | | | TESTS | | | [...] MARIA | [address] | [place], [place] | | | [facility] | [address] | [address] | | | TESTS | | | [...] [facility] | [address] | [place] [address] | | | ИРИНА ANTOINE | TABITHA [...] | + + + + + | [facility] | [address] | [place] [address] | | | SERVICES, CORE | [address] | | | + + + + + MAGNESIUM, PLASMA (03/21/2017 5:34 AM PDT) + +---------+ + + + | Component | Value | Ref Range | Performed | Pathologist | | | | | At | Signature | + +---------+ + + + | MAGNESIUM,P | 2.6 (H) | 1.8 - 2.5 mg/dL | [facility] | | | [facility] | | | [...] | + + + + + | [facility] | [address] | [place] [address] | | | SERVICES, CORE | TABITHA [...] | | | LABORATORY | | | CONGOLESE | | | SERVICES, | | | [...] | + + + + + | [facility] | [address] | [place] [address] | | | ИРИНА ANTOINE | TABITHA [...] (H) | 70 - 99 mg/dL | [facility] - | | | GLUCOSE, | [...] RODGERS | [address] | [place], [place] | | | R[facility]O POINT [facility] CARE | [address] | [address] | | | TESTS | | | [...] MARIA | [address] | [place], [place] | | | [facility] | [address] | [address] | | | TESTS | | | [...] MARQUAM | [address] | [place], [place] | | | JULIANN SIL[facility]ARE | [address] | [address] | | | TESTS | | | [...] RODGERS | [address] | [place], [place] | | | JULIANN SIL[facility]ARE | [address] | [address] | | | TESTS | | | [...] BLUAM | [address] | [place], [place] | | | JULIANN SILVA [facility] CARE | [address] | [address] | | | TESTS | | | [...] | + + + + + | [facility] | [address] | [place] [address] | | | SERVICES, CORE | TABITHA [...] (H) | 70 - 99 mg/dL | [facility] - | | | GLUCOSE, | [...] RODGERS | [address] | [place], [place] | | | R[facility]ARDO POINT OF CARE | [address] | [address] | | | TESTS | | | [...] MARQUAM | [address] | [place] | | | [facility]O PO[facility]ARE | [address] | [address] | | | TESTS | | | [...] MARQUAM | [address] | [place] | | | JULIANN SILVA OF [facility] | [facility] | [address] | | | TESTS | | | [...] RODGERS | [address] | [place], [place] | | | UJLIANN SILVA OF CARE | [address] | [address] | | | TESTS | | | [...] MARQUAM | [address] | [place], [place] | | | HILL, POINT OF CARE | [address] | [address] | | | TESTS | | | [...] MARQUAM | [address] | [place] | | | JULIANN SILVA OF [facility] | [facility] | [address] | | | TESTS | | | [...] RODGERS | [address] | [place], [place] | | | JULIANN SILVA OF CARE | [address] | [address] | | | TESTS | | | [...] | + + + + + | [facility] | [address] | [place] [address] | | | SERVICES, CORE | TABITHA [...] (H) | 70 - 99 mg/dL | [facility] - | | | GLUCOSE, | [...] R[facility] | [address] | [place], [place] | | | JULIANN SILVA OF [place] | [facility] | [address] | | | TESTS | | | [...] MARIA | [address] | [place], [place] | | | JULIANN SILVA OF CARE | [address] | [address] | | | TESTS | | | [...] | + + + + + | [facility] | [address] | [place] [address] | | | ИРИНА ANTOINE | TABITHA [...] R[facility] | [address] | [place], [place] | | | JULIANN SILVA OF [facility] | [address] | [address] | | | TESTS | | | [...] the tip in the proximal gastric body. Diboll Олег | | | catheter in place. [...] Note | + + | Service Account, [employer] Res In Interface - 03/20/2017 2:38 PM PDT EXAM: Supine | | frontal view of the abdomen. HISTORY: Study to evaluate feeding tube | | positionCOMPARISON: Chest Xray dated 03/19/2017.FINDINGS AND IMPRESSION:Feeding tube is | | seen in the stomach with the tip in the proximal gastric body.Diboll Олег catheter in | | place.Limited evaluation of the lungs as technique was tailored for feeding tube.I have | | personally reviewed the images and, if necessary, edited the report. I agree with the | | report as now presented. | | | |Feeding tube is seen in the stomach with the tip in the proximal gastric body. | |Diboll Олег catheter in place. | |Limited evaluation [...] | | + +---------+ + + | [facility] | | | | | [...] [facility] | [address] | [place], [place] | | | JULIANN SILVA OF CARE | [address] | [address] | | | TESTS | | | [...] RODGERS | [address] | [place], [place] | | | JULIANN SILVA OF CARE | [address] | [address] | | | TESTS | | | [...] + + | [facility] | [address] | [place], [place] | | | JULIANN SILVA OF CARE | [address] | [address] | | | TESTS | | | [...] [facility] | [address] | [place], [place] | | | JULIANN SILVA OF [place] | [address] | [address] | | | TESTS | | | [...] RODGERS | [address] | [place], [place] | | | R[facility]ARDO POINT OF CARE | [address] | [address] | | | TESTS | | | [...] | + + + + + | [facility] | [address] | [place] [address] | | | ARASH, ИРИНА | TABITHA [...] + + | [facility] | [address] | [place] [address] | | | SERVICES, CORE | PARK [...] | + + + + + | [facility] | [address] | [place] [address] | | | SERVICES, CORE | TABITHA [...] [facility] | [address] | [place], [place] | | | JULIANN SILVA OF CARE | [address] | [address] | | | TESTS | | | | + + + + + X-RAY PORTABLE CHEST 1 VIEW (03/20/2017 6:33 AM PDT) + + | Specimen | + + | | + + + + + | Narrative | Performed At | + + + | EXAM: [place] CHEST 1 VIEW 03/20/17 04:29:28 HISTORY: ECMO [...] Note | + + | Service Account, [employer] In Interface - 03/20/2017 10:12 AM PDT EXAM: OR CHEST 1 | | VIEW 03/20/17 04:29:28 [...] [facility] | [address] | [place], [place] | | | CHRISTIE SILVA [facility] | [facility] | [address] | | | TESTS | | | [...] [facility] | [address] | [place], [place] | | | JULIANN SILVA OF [place] | [facility] | [address] | | | TESTS | | | [...] RODGERS | [address] | [place], [place] | | | [facility] POINT OF CARE | [address] | [address] | | | TESTS | | | [...] [facility] | [address] | [place], [place] | | | JULIANN SILVA OF [facility] | [facility] | [address] | | | TESTS | | | [...] [facility] | [address] | [place] [address] | | | SERVICES, CORE | TABITHA [...] | + + + + + | [facility] | [address] | [place] [address] | | | SERVICES, CORE | [address] | | | + + + + + MAGNESIUM, PLASMA (03/20/2017 1:00 AM PDT) + +---------+ + + + | Component | Value | Ref Range | Performed | Pathologist | | | | | At | Signature | + +---------+ + + + | MAGNESIUM,P | 2.7 (H) | 1.8 - 2.5 mg/dL | [facility] | | | LASMA | | [...] | + + + + + | [facility] | [address] | [place] [address] | | | SERVICES, CORE | PARK [...] | + + + + + | [facility] | [address] | [place] [address] | | | SERVICES, CORE | TABITHA [...] | | | LABORATORY | | | CONGOLESE | | | SERVICES, | | | [...] | + + + + + | [facility] | [address] | [place] [address] | | | ARASH, ИРИНА | TABITHA [...] [facility] | [address] | [place], [place] | | | HILL, POINT OF CARE | [address] | [address] | | | TESTS | | | [...] [facility] | [address] | [place], [place] | | | JULIANN SILVA OF [facility] | [address] | [address] | | | TESTS | | | [...] | + + + + + | [facility] | [address] | [place] [address] | | | SERVICES, CORE | TABITHA [...] [facility] | [address] | [place], [place] | | | JULIANN SILVA OF CARE | [address] | [address] | | | TESTS | | | [...] E[facility]IO [facility] | [address] | [place], [place] | | | RICARDO AMERY OF [facility] | [address] | [address] | | | TESTS | | | [...] | + + + + + | [facility] | [address] | [place] [address] | | | SERVICES, CORE | TABITHA [...] (H) | 70 - 99 mg/dL | [facility] - | | | GLUCOSE, | [...] RODGERS | [address] | [place], [place] | | | JULIANN SILVA OF [place] | [facility] | [address] | | | TESTS | | | [...] | + + + + + | [facility] | [address] | [place] [address] | | | SERVICES, CORE | TABITHA [...] (H) | 70 - 99 mg/dL | [facility] - | | | GLUCOSE, | | | [facility] | | | POC | | | JULIANN SILVA | | | | | | OF CARE | | | | | | TESTS | | + +---------+ + + + + + | Specimen | + + | | + + + + + + + | Performing | Address | City/State[facility] | Phone Number | | Organization | | | | + + + + + | [facility] | [address] | [place], [place] | | | JULIANN SILVA OF [place] | [facility] | [address] | | | TESTS | | | [...] | + + + + + | [facility] | [address] | [place] [address] | | | SERVICES, CORE | PARK [...] | + + + + + | [facility] | [address] | [place] [address] | | | ИРИНА ANTOINE | TABITHA [...] (H) | 70 - 99 mg/dL | [facility] - | | | GLUCOSE, | [...] MARIA | [address] | [place], [place] | | | RICARDO POINT OF CARE | [address] | [address] | | | TESTS | | | [...] | 118 (L) | >300 mmHg | [facility] | | | RATIO | | | [...] | + + + + + | [facility] | [address] | [place] [address] | | | ARASH, ИРИНА | TABITHA [...] [facility] | [address] | [place] [address] | | | SERVICES, CORE | PARK [...] [facility] | [address] | [place] [address] | | | ARASH, ИРИНА | PARK [...] | + + + + + | [facility] | [address] | [place] [address] | | | SERVICES, CORE | TABITHA [...] (H) | 70 - 99 mg/dL | [facility] - | | | GLUCOSE, | [...] RODGERS | [address] | [place], [place] | | | JULIANN SILVA OF [place] | [address] | [address] | | | TESTS | | | [...] [facility] | [address] | [place], [place] | | | RICARDO POINT OF CARE | [address] | [address] | | | TESTS | | | [...] ANA MARIA | [address] | [place], [place] | | | R[facility]ARDO AM[facility] | [address] | [address] | | | TESTS | | | [...] [facility] | [address] | [place] [address] | | | SERVICES, CORE | TABITHA [...] [facility] | [address] | [place], [place] | | | CARDIOLOGY | [address] | [address] | | + + + + + [...] [facility] | [address] | [place], [place] | | | JULIANN SILVA OF CARE | [address] | [address] | | | TESTS | | | | + + + + + HS-HZ-BWT-HB,POC RT (03/19/2017 1:04 PM PDT) + + [...] [facility] | [address] | [place], [place] | | | JULAINN SILVA OF CARE | [address] | [address] | | | TESTS | | | [...] + + + + | PRODUCT | [id number] | | [facility] | | | UNIT [...] + + + + | EXPIRATION | [id number] | | [facility] | | | DATE [...] + + + + | BLOOD | [id number] | | [facility] | | | PRODUCT [...] [facility] | [address] | [place] [address] | | | SERVICES, | [address] [...] + + + + | PRODUCT | [id number] | | [facility] | | | UNIT [...] + + + + | EXPIRATION | [id number] | | [facility] | | | DATE [...] + + + + | BLOOD | [id number] | | [facility] | | | PRODUCT [...] [facility] | [address] | [place] [address] | | | SERVICES, | [address] [...] + + + + | PRODUCT | [id number] | | [facility] | | | UNIT [...] + + + + | EXPIRATION | [id number] | | [facility] | | | DATE [...] + + + + | BLOOD | [id number] | | [facility] | | | PRODUCT [...] LABORATORY | [address] | [place] [address] | | | SERVICES, | [address] [...] + + + + | PRODUCT | [id number] | | [facility] | | | UNIT [...] + + + + | EXPIRATION | [id number] | | [facility] | | | DATE [...] + + + + | BLOOD | [id number] | | [facility] | | | PRODUCT [...] [facility] | [address] | [place] [address] | | | SERVICES, | [address] [...] | + + + + + | [facility] | [address] | [place] [address] | | | SERVICES, CORE | TABITHA [...] | | | LABORATORY | | | CONGOLESE | | | SERVICES, | | | [...] [facility] | [address] | [place] [address] | | | ARASH, ИРИНА | PARK [...] [facility] | [address] | [place] [address] | | | SERVICES, CORE | PARK [...] | + + + + + | [facility] | [address] | [place] [address] | | | SERVICES, CORE | [address] | | | + + + + + OR ECMO REV (EXT)AND/OR DECANNULATION (03/19/2017 12:36 PM [...] GISELL Preston PhD [place] [address] [id number] [place], | | | [place] [address] | | + + + ABG-FULL ABL, POC (03/19/2017 12:14 PM PDT) + + + + + + | Component | Value | Ref Range | Performed | Pathologist | | | | | At | Signature | + + + + + + | PH | 7.42 | 7.37 - 7.44 | [facility] - | | | ARTERIAL, | [...] - [facility] | [address] | [place], [place] | | | JULIANN SILVA OF CARE | [address] | [address] | | | TESTS | | | [...] ANA MARIA | [address] | [place], [place] | | | JULIANN SILVA OF CARE | [facility] | [address] | | | TESTS | | | | + + + + + UN-MC-UZD-HB,POC RT (03/19/2017 10:24 AM PDT) + + [...] - [facility] | [address] | [place], [place] | | | JULIANN SILVA OF CARE | [address] | [address] | | | TESTS | | | [...] [facility] | [address] | [place], [place] | | | RICARDO POINT OF CARE | [address] | [address] | | | TESTS | | | | + + + + + GX-EJ-RFZ-HB,POC RT (03/19/2017 10:06 AM PDT) + + [...] | | | CA,WHOLE | | | RCIARDO, POINT | | | BLD,POC | | [...] + + + | [facility] | [address] | [place], [place] | | | RICARDO POINT OF CARE | [address] | [address] | | | TESTS | | | | + + + + + AX-PU-RQW-KARY ISIDRO RT (03/19/2017 9:51 AM PDT) + [...] MARIA | [address] | [place], [place] | | | JULIANN SILVA OF [place] | [address] | [address] | | | TESTS | | | [...] + + + + | PRODUCT | [id number] | | [facility] | | | UNIT [...] + + + + | EXPIRATION | [id number] | | [facility] | | | DATE [...] + + + + | BLOOD | [id number] | | [facility] | | | PRODUCT [...] | + + + + + | [facility] | [address] | [place] [address] | | | SERVICES, | [address] [...] + + + + | PRODUCT | [id number] | | [facility] | | | UNIT [...] + + + + | EXPIRATION | [id number] | | [facility] | | | DATE [...] + + + + | BLOOD | [id number] | | [facility] | | | PRODUCT [...] | + + + + + | [facility] | [address] | [place] [address] | | | SERVICES, | [address] [...] + + + + | PRODUCT | [id number] | | [facility] | | | UNIT [...] + + + + | EXPIRATION | [id number] | | [facility] | | | DATE [...] + + + + | BLOOD | [id number] | | [facility] | | | PRODUCT [...] | + + + + + | [facility] | [address] | [place] [address] | | | SERVICES, | [address] [...] + + + + | PRODUCT | [id number] | | [facility] | | | UNIT [...] + + + + | EXPIRATION | [id number] | | [facility] | | | DATE [...] + + + + | BLOOD | [id number] | | [facility] | | | PRODUCT [...] [facility] | [address] | [place] [address] | | | SERVICES, | [address] | | | | TRANSFUSION MEDICINE | | | | + + + + + X-RAY PORTABLE CHEST 1 VIEW (03/19/2017 9:13 AM PDT) + + | Specimen | + + | | + + + + + | Narrative | Performed At | + + + | EXAM: OR CHEST 1 VIEW HISTORY: ECMO. Evaluate cannula | [facility] | | placement. COMPARISON: Yesterday FINDINGS: Endotracheal | RADIOLOGY VOICE | | tube, Diboll-Олег catheter and enteric tube remain in place. [...] Note | + + | Service Account, COINTERRA In Interface - 03/19/2017 9:17 AM PDT EXAM: OR CHEST 1 | | VIEW HISTORY: ECMO. Evaluate cannula placement.COMPARISON: YesterdayFINDINGS: | | Endotracheal tube, Diboll-Олег catheter and enteric tube remain in place. [...] - MARRAND[facility] | [address] | [place], [place] | | | JULIANN SILVA OF CARE | [address] | [address] | | | TESTS | | | [...] R[facility] | [address] | [place], [place] | | | JULIANN SILVA OF CARE | [address] | [address] | | | TESTS | | | [...] [facility] | [address] | [place] [address] | | | SERVICES, CORE | PARK [...] - MARRANDIAM | [address] | [place], [place] | | | RICARDO POINT OF CARE | [address] | [address] | | | TESTS | | | [...] (H) | 70 - 99 mg/dL | [facility] - | | | GLUCOSE, | [...] + + + | [facility] | [address] | [place], [place] | | | JULIANN SILVA OF [facility] | [address] | [address] | | | TESTS | | | [...] [facility] | [address] | [place], [place] | | | JULIANN SILVA OF [place] | [facility] | [address] | | | TESTS | | | [...] ANA MARIA | [address] | [place], [place] | | | RICARDO POINT OF CARE | [address] | [address] | | | TESTS | | | [...] | + + + + + | [facility] | [address] | [place] [address] | | | SERVICES, CORE | TABITHA [...] (H) | 70 - 99 mg/dL | [facility] - | | | GLUCOSE, | [...] R[facility] | [address] | [place], [place] | | | JULIANN SILVA OF [place] | [facility] | [address] | | | TESTS | | | [...] [facility] | [address] | [place], [place] | | | JULIANN SILVA OF CARE | [address] | [address] | | | TESTS | | | [...] (H) | 70 - 99 mg/dL | [facility] - | | | GLUCOSE, | [...] MARIA | [address] | [place], [place] | | | RICARDO POINT OF CARE | [address] | [address] | | | TESTS | | | [...] | + + + + + | [facility] | [address] | [place] [address] | | | ARASH, ИРИНА | TABITHA [...] E[facility]OGIO [facility] | [address] | [place], [place] | | | JULIANN SILVA OF [facility] | [facility] | [address] | | | TESTS | | | [...] [facility] | [address] | [place] [address] | | | SERVICES, CORE | PARK [...] | + + + + + | [facility] | [address] | [place] [address] | | | SERVICES, CORE | [address] | | | + + + + + MAGNESIUM, PLASMA (03/19/2017 1:11 AM PDT) + +---------+ + + + | Component | Value | Ref Range | Performed | Pathologist | | | | | At | Signature | + +---------+ + + + | MAGNESIUM,P | 2.6 (H) | 1.8 - 2.5 mg/dL | [facility] | | | [facility] | | | [...] | + + + + + | [facility] | [address] | [place] [address] | | | SERVICES, CORE | TABITHA [...] | + + + + + | [facility] | [address] | [place] [address] | | | SERVICES, CORE | TABITHA [...] [facility] | [address] | [place] [address] | | | SERVICES, CORE | PARK [...] [facility] | [address] | [place] [address] | | | ARASH, ИРИНА | TABITHA [...] | | | LABORATORY | | | CONGOLESE | | | SERVICES, | | | [...] | + + + + + | [facility] | [address] | [place] [address] | | | SERVICES, CORE | TABITHA [...] [facility] | [address] | [place] [address] | | | SERVICES, CORE | PARK [...] | + + + + + | [facility] | [address] | [place] [address] | | | SERVICES, CORE | PARK [...] (H) | 70 - 99 mg/dL | [facility] - | | | GLUCOSE, | [...] R[facility] | [address] | [place], [place] | | | JULIANN SILVA OF [place] | [facility] | [address] | | | TESTS | | | [...] | + + + + + | [facility] | [address] | [place] [address] | | | SERVICES, CORE | TABITHA [...] (H) | 70 - 99 mg/dL | [facility] - | | | GLUCOSE, | | [...] R[facility] | [address] | [place], [place] | | | RICARDO POINT OF CARE | [address] | [address] | | | TESTS | | | [...] [facility] | [address] | [place], [place] | | | RICARDO POINT OF CARE | [address] | [address] | | | TESTS | | | [...] | + + + + + | [facility] | [address] | [place] [address] | | | SERVICES, CORE | TABITHA [...] (H) | 70 - 99 mg/dL | [facility] - | | | GLUCOSE, | [...] R[facility] | [address] | [place], [place] | | | JULIANN SILVA OF [facility] | [address] | [address] | | | TESTS | | | [...] [facility] | [address] | [place], [place] | | | JULIANN SILVA OF CARE | [address] | [address] | | | TESTS | | | [...] ANA MARIA | [address] | [place], [place] | | | RICARDO POINT OF CARE | [address] | [address] | | | TESTS | | | [...] [facility] | [address] | [place] [address] | | | SERVICES, CORE | PARK [...] | + + + + + | [facility] | [address] | [place] [address] | | | SERVICES, CORE | TABITHA [...] (H) | 70 - 99 mg/dL | [facility] - | | | GLUCOSE, | [...] R[facility] | [address] | [place], [place] | | | JULIANN SILVA OF [place] | [address] | [address] | | | TESTS | | | [...] | + + + + + | [facility] [facility] | [address] | [place] [address] | | | SERVICES, ИРИНА | TABITHA [...] MARIA | [address] | [place], [place] | | | JULIANN SILVA OF CARE | [facility] | [address] | | | TESTS | | | [...] (H) | 70 - 99 mg/dL | [facility] - | | | GLUCOSE, | [...] R[facility] | [address] | [place], [place] | | | JULIANN SILVA OF CARE | [facility] | [address] | | | TESTS | | | [...] | + + + + + | [facility] | [address] | [place] [address] | | | SERVICES, CORE | PARK [...] | + + + + + | [facility] | [address] | [place] [address] | | | ARASH, ИРИНА | TABITHA [...] [facility] | [address] | [place], [place] | | | RICARDO POINT OF CARE | [address] | [address] | | | TESTS | | | [...] ANA MARIA | [address] | [place], [place] | | | [place] POINT OF CARE | [address] | [address] | | | TESTS | | | [...] [facility] | [address] | [place] [address] | | | SERVICES, CORE | PARK [...] | + + + + + | [facility] | [address] | [place] [address] | | | SERVICES, CORE | PARK [...] [facility] | [address] | [place] [address] | | | SERVICES, CORE | PARK [...] | + + + + + | [facility] | [address] | [place] [address] | | | SERVICES, CORE | TABITHA [...] | | | LABORATORY | | | CONGOLESE | | | SERVICES, | | | [...] [facility] | [address] | [place] [address] | | | SERVICES, CORE | TABITHA [...] | + + + + + | [facility] | [address] | [place] [address] | | | SERVICES, CORE | TABITHA [...] | + + + + + | [facility] | [address] | [place] [address] | | | ARASH, ИРИНА | TABITHA [...] [facility] | [address] | [place] [address] | | | SERVICES, CORE [...] [facility] | [address] | [place], [place] | | | IRCARDO POINT OF CARE | [address] | [address] | | | TESTS | | | [...] R[facility] | [address] | [place], [place] | | | RICARDO POINT OF CARE | [address] | [address] | | | TESTS | | | [...] [facility] | [address] | [place] [address] | | | SERVICES, CORE | PARK [...] MARIA | [address] | [place], [place] | | | R[facility]O POINT OF [facility] | [address] | [address] | | | TESTS | | | [...] | + + + + + | [facility] | [address] | [place] [address] | | | SERVICES, CORE | PARK [...] | + + + + + | [facility] | [address] | [place] [address] | | | SERVICES, CORE [...] + + + | [facility] | [address] | [place] [address] | | | [facility] | | | | + + [...] R[facility] | [address] | [place], [place] | | | RICARDO POINT OF CARE | [address] | [address] | | | TESTS | | | [...] R[facility] | [address] | [place], [place] | | | JULIANN SILVA OF [place] | [address] | [address] | | | TESTS | | | [...] [facility] | [address] | [place] [address] | | | SERVICES, ИРИНА | TABITHA [...] [facility] | [address] | [place] [address] | | | ARASH, ИРИНА | TABITHA [...] (H) | 70 - 99 mg/dL | [facility] - | | | GLUCOSE, | [...] [facility] | [address] | [place], [place] | | | JULIANN SILVA OF [place] | [facility] | [address] | | | TESTS | | | [...] R[facility] | [address] | [place], [place] | | | JULIANN SILVA OF [facility] | [address] | [address] | | | TESTS | | | | + + + + + X-RAY PORTABLE CHEST 1 VIEW (03/18/2017 6:05 AM PDT) + + | Specimen | + + | | + + + + + | Narrative | Performed At | + + + | EXAM: OR CHEST 1 VIEW HISTORY: ECMO. Evaluate cannula placement. | [facility] | | COMPARISON: Yesterday FINDINGS: Endotracheal tube tip is | RADIOLOGY VOICE | | 2.5 cm above the jefferson. Enteric tube tip in the stomach. Diboll-Олег | RECOGNITION | | catheter tip projects [...] Note | + + | Service Account, COINTERRA In Interface - 03/18/2017 8:39 AM PDT EXAM: OR CHEST 1 | | VIEW HISTORY: ECMO. Evaluate cannula placement.COMPARISON: YesterdayFINDINGS: | | Endotracheal tube tip is 2.5 cm above the jefferson. Enteric tube tip in the stomach. | | Diboll-Олег catheter tip projects in the main pulmonary [...] [facility] | [address] | [place], [place] | | | RICARDO POINT OF CARE | [address] | [address] | | | TESTS | | | [...] MARIA | [address] | [place], [place] | | | RICARDO AMERY OF [facility] | [facility] | [address] | | | TESTS | | | [...] | + + + + + | [facility] | [address] | [place] [address] | | | SERVICES, CORE | TABITHA [...] [facility] | [address] | [place], [place] | | | JULIANN SILVA OF [facility] | [address] | [address] | | | TESTS | | | [...] ANA MAR[facility] | [address] | [place], [place] | | | JULIANN SILVA OF [facility] | [address] | [address] | | | TESTS | | | [...] [facility] | [address] | [place] [address] | | | SERVICES, | [address] [...] [facility] | [address] | [place] [address] | | | SERVICES, | [address] [...] + + + + | PRODUCT | [id number] | | [facility] | | | UNIT [...] + + + + | EXPIRATION | [id number] | | [facility] | | | DATE [...] + + + + | BLOOD | [id number] | | [facility] | | | PRODUCT [...] [facility] | [address] | [place] [address] | | | SERVICES, | [address] [...] MARIA | [address] | [place], [place] | | | JULIANN SILVA OF CARE | [address] | [address] | | | TESTS | | | [...] | + + + + + | [facility] | [address] | [place] [address] | | | SERVICES, CORE | TABITHA [...] + + | [facility] | [address] | [place] [address] | | | SERVICES, ИРИНА | TABITHA [...] | + + + + + | [facility] | [address] | [place] [address] | | | SERVICES, CORE | PARK [...] [facility] | [address] | [place] [address] | | | SERVICES, CORE | PARK [...] | | | LABORATORY | | | CONGOLESE | | | SERVICES, | | | [...] | + + + + + | [facility] | [address] | [place] [address] | | | SERVICES, ИРИНА | TABITHA [...] | + + + + + | [facility] | [address] | [place] [address] | | | SERVICES, CORE | PARK [...] | + + + + + | [facility] | [address] | [place] [address] | | | SERVICES, CORE | TABITHA [...] [facility] | [address] | [place] [address] | | | SERVICES, CORE | TABITHA [...] Zoe RODGERS | [address] | [place], [place] | | | JULIANN SILVA OF [facility] | [facility] | [address] | | | TESTS | | | [...] [facility] | [address] | [place] [address] | | | SERVICES, CORE | TABITHA [...] [facility] | [address] | [place] [address] | | | ИРИНА ANTOINE | TABITHA [...] ANA MARIA | [address] | [place], [place] | | | JULIANN SILVA OF CARE | [facility] | [address] | | | TESTS | | | [...] (H) | 60 - 99 mg/dL | [facility] - | | | GLUCOSE, | [...] RODGERS | [address] | [place], [place] | | | JULIANN SILVA OF CARE | [facility] | [address] | | | TESTS | | | [...] MARIA | [address] | [place], [place] | | | JULIANN SILVA OF [facility] | [address] | [address] | | | TESTS | | | [...] EULOGIO RODGERS | [address] | [place], [place] | | | JULIANN SILVA OF CARE | [address] | [address] | | | TESTS | | | [...] | + + + + + | [facility] | [address] | [place] [address] | | | SERVICES, CORE | TABITHA [...] (H) | 60 - 99 mg/dL | [facility] - | | | GLUCOSE, | [...] RODGERS | [address] | [place], [place] | | | [facility] | [address] | [address] | | | TESTS | | | [...] [facility] | [address] | [place] [address] | | | SERVICES, ИРИНА | PARK [...] [facility] | [address] | [place] [address] | | | ИРИНА ANTOINE | PARK [...] [facility] | [address] | [place] [address] | | | SERVICES, CORE | PARK [...] | + + + + + | [facility] | [address] | [place] [address] | | | SERVICES, CORE | TABITHA [...] | + + + + + | [facility] | [address] | [place] [address] | | | SERVICES, CORE | PARK [...] MARQU[facility] | [address] | [place], [place] | | | JULIANN SILVA OF CARE | [facility] | [address] | | | TESTS | | | [...] (H) | 60 - 99 mg/dL | [facility] - | | | GLUCOSE, | [...] MARIA | [address] | [place], [place] | | | JULIANN SILVA OF [facility] | [address] | [address] | | | TESTS | | | [...] | 58 (L) | >300 mmHg | [facility] | | | RATIO | | | [...] | + + + + + | [facility] | [address] | [place] [address] | | | SERVICES, CORE | PARK [...] MARQUAM | [address] | [place], [place] | | | JULIANN SILVA OF CARE | [facility] | [address] | | | TESTS | | | [...] MARIA | [address] | [place], [place] | | | JULIANN SILVA OF [facility] | [address] | [address] | | | TESTS | | | [...] + + + + | PRODUCT | [id number] | | [facility] | | | UNIT [...] + + + + | EXPIRATION | [id number] | | [facility] | | | DATE [...] + + + + | BLOOD | [id number] | | [facility] | | | PRODUCT [...] | + + + + + | [facility] | [address] | [place] [address] | | | SERVICES, | [address] [...] + + + + | PRODUCT | [id number] | | [facility] | | | UNIT [...] + + + + | EXPIRATION | [id number] | | [facility] | | | DATE [...] + + + + | BLOOD | [id number] | | [facility] | | | PRODUCT [...] | + + + + + | [employer] [facility] | [address] [facility] | [place] [address] | | | SERVICES, | [address] [...] MARQUAM | [address] | [place], [place] | | | JULIANN SILVA OF CARE | [address] | [address] | | | TESTS | | | [...] [facility] | [address] | [place] [address] | | | SERVICES, CORE | PARK [...] [facility] | [address] | [place] [address] | | | SERVICES, CORE | PARK [...] [facility] | [address] | [place] [address] | | | SERVICES, CORE | PARK [...] [facility] | [address] | [place] [address] | | | SERVICES, CORE | TABITHA [...] | | | LABORATORY | | | CONGOLESE | | | SERVICES, | | | [...] | + + + + + | [facility] | [address] | [place] [address] | | | SERVICES, CORE | PARK [...] [facility] | [address] | [place] [address] | | | SERVICES, CORE | TABITHA [...] [facility] | [address] | [place] [address] | | | SERVICES, CORE | TABITHA [...] | 115 (L) | >300 mmHg | [facility] | | | RATIO | | | [...] | + + + + + | [facility] | [address] | [place] [address] | | | ARASH, ИРИНА | PARK [...] [facility] | [address] | [place], [place] | | | RICARDO POINT OF CARE | [address] | [address] | | | TESTS | | | [...] | + + + + + | [facility] | [address] | [place] [address] | | | SERVICES, CORE | TABITHA [...] (H) | 60 - 99 mg/dL | [facility] - | | | GLUCOSE, | | [...] [facility] | [address] | [place], [place] | | | RICARDO POINT OF CARE | [address] | [address] | | | TESTS | | | [...] Note | + + | Service Account, COINTERRA In Interface - 03/17/2017 6:18 PM PDT [...] Note | + + | Service Account, COINTERRA In Interface - 03/17/2017 6:17 PM PDT [...] [facility] | [address] | [place], [place] | | | RICARDO POINT OF CARE | [address] | [address] | | | TESTS | | | [...] | + + + + + | [facility] | [address] | [place] [address] | | | SERVICES, CORE | TABITHA [...] | EJECTION | 22.5 | % | [facility] DEPT | | | FRACTION | | | OF | | | RANGE MEAN | | | CARDIOLOGY | | | VALUE | | | | | + + + + + + + + | Specimen | + + | | + + + + -------+ | Narrative | Performed At | + + -------+ | [facility] | [facility] DE PT OF | | [facility] Adult Echocardiography | CARDIOLOG Y | | [place] [address] [facility] | | | [place] [address] Pt Name: | | | RON MCKEON Study Date/Time 03/17/2017 / 10:30:26 | | | AMMRN: [id number] Most recent | | | prior: 03/15/2017Acc #: [id number] No. | | | previous echos: 1DOB: 1955 61 years Heart | | | Rate: 139 bpmHeight: 69.0 | | | in Blood Pressure: 133/83 | | | mm/HgWeight: 258.0 | | | lb Gender: | | | MBSA: 2.30 m2 Order | | | ID: [id number] Soft Sugar Supervisor: Mauri Domingo [facility] | | | Referring Provider: Mellisa Rubalcava Location: [facility] | | | Performed: Limited 2D, Color Doppler and Spectral Doppler | | | Limited.Study Quality: Fair.Exam Indication: Heart failure; ECMO; s/p | | | STEMIHistory: 61 year old male with a past medical history significant | | | for hypertension, hyperlipidemia, ongoing tobacco use and | | | pre-diabetes who is transferred to [facility] with cardiogenic shock in the | [...] | | | Report electronically signed by: [id number] Jen Ovalle MD, PhD | | | (03/17/2017, 1:53:40 PM) Final | | | | | |Report electronically signed by: [id number] Jen Ovalle MD, PhD (03/17/2017, | | |1:53:40 PM) | | | | | | | | | | | | Final | | + + -------+ + + | Procedure Note | + + | Interface, Cardiology Results - 03/17/2017 1:53 PM [facility] | | [facility] Echocardiography Laboratory [address] [place] [address] | | [place], [place] [address] Pt Name: RON MCKEON Study Date/Time 03/17/2017 / 10:30:26 AMMRN: [id number] Most | | recent prior: 03/15/2017Acc #: [id number] No. previous echos: 1DOB: | | 1955 61 years Heart Rate: 139 bpmHeight: 69.0 in Blood | | Pressure: 133/83 mm/HgWeight: 258.0 lb Gender: MBSA: | | 2.30 m2 Order ID: [id number] Soft Sugar Supervisor: Mauri Domingo | | RDCSReferring Provider: Mellisa Rubalcava Location: [facility] Performed: | | Limited 2D, Color Doppler and Spectral Doppler Limited.Study Quality: Fair.Exam | | Indication: Heart failure; ECMO; s/p STEMIHistory: 61 year old male with a past medical | | history significant for hypertension, hyperlipidemia, ongoing tobacco use and | | pre-diabetes who is transferred to [facility] with cardiogenic shock in the setting [...] | | Scoring: Report electronically signed by: [id number] Jen Ovalle MD, PhD (03/17/2017, | | [...] | | | |Report electronically signed by: [id number] Jen Ovalle MD, PhD (03/17/2017, | |1:53:40 PM) | | | | | | | | Final | + + + + + + + | Performing | Address | City/State/Zipcode | Phone Number | | Organization | | | | + + + + + | [facility] | [address] | [place], [place] | | | CARDIOLOGY | [address] | [address] | | + + + + + [...] [facility] | [address] | [place], [place] | | | RICARDO POINT OF CARE | [address] | [address] | | | TESTS | | | [...] [facility] | [address] | [place], [place] | | | RICARDO POINT OF CARE | [address] | [address] | | | TESTS | | | [...] [facility] | [address] | [place] [address] | | | SERVICES, CORE | PARK [...] [facility] | [address] | [place] [address] | | | SERVICES, CORE | PARK [...] | + + + + + | [facility] | [address] | [place] [address] | | | SERVICES, ИРИНА | TABITHA [...] [facility] | [address] | [place], [place] | | | RICARDO POINT OF CARE | [facility] | [address] | | | TESTS | | | [...] - [facility] | [address] | [place], [place] | | | RICARDO POINT OF CARE | [address] | [address] | | | TESTS | | | [...] + + + | [facility] | [address] | [place], [place] | | | [facility]O POINT OF [facility] | [address] | [address] | | | TESTS | | | [...] [facility] | [address] | [place] [address] | | | SERVICES, CORE | TABITHA [...] | + + + + + | [facility] | [address] | [place] [address] | | | SERVICES, CORE | [address] | | | + + + + + X-RAY PORTABLE CHEST 1 VIEW (03/17/2017 5:37 AM PDT) + + | Specimen | + + | | + + + + + | Narrative | Performed At | + + + | EXAM: OR CHEST 1 VIEW 03/17/17 04:53:29 HISTORY: On [...] | + + | Service Account, Arely Super Derivatives In Interface - 03/17/2017 9:44 AM PDT EXAM: OR CHEST 1 | | VIEW 03/17/17 04:53:29 [...] [facility] | [address] | [place], [place] | | | JULIANN SILVA OF CARE | [address] | [address] | | | TESTS | | | [...] [facility] | [address] | [place] [address] | | | SERVICESИРИНА | [address] [...] | | | LABORATORY | | | CONGOLESE | | | SERVICES, | | | [...] | + + + + + | [facility] | [address] | [place] [address] | | | SERVICES, ИРИНА | TABITHA [...] | + + + + + | [facility] | [address] | [place] [id number] | | | ИРИНА ANTOINE | TABITHA [...] [facility] | [address] | [place], [place] | | | JULIANN SILVA OF CARE | [address] | [address] | | | TESTS | | | [...] | + + + + + | [facility] | [address] | [place] [address] | | | SERVICES, CORE | PARK [...] | + + + + + | [facility] | [address] [facility] | [place] [address] | | | SERVICES, CORE | TABITHA [...] | + + + + + | [facility] | [address] | [place] [address] | | | SERVICES, CORE | TABITHA [...] | + + + + + | [facility] | [address] | [place] [address] | | | ARASH, ИРИНА | PARK [...] [facility] | [address] | [place] [address] | | | SERVICES, CORE | PARK [...] [facility] | [address] | [place] [address] | | | SERVICES, CORE | PARK [...] [facility] | [address] | [place] [address] | | | SERVICES, CORE | PARK [...] | + + + + + | [facility] | [address] | [place] [address] | | | SERVICES, CORE | TABITHA [...] | + + + + + | [facility] | [address] | [place] [address] | | | SERVICES, CORE | PARK [...] [facility] | [address] | [place] [address] | | | SERVICES, CORE | TABITHA [...] DEPT OF | [address] | [place], [place] | | | CARDIOLOGY | [address] | [address] | | + + + + + JG-XC-ZSV-HB,POC RT (03/17/2017 12:44 AM PDT) + + [...] [facility] | [address] | [place], [place] | | | RICARDO POINT OF CARE | [address] | [address] | | | TESTS | | | [...] MARRANDIAM | [address] | [place], [place] | | | JULIANN SILVA OF CARE | [facility] | [address] | | | TESTS | | | [...] [facility] | [address] | [place], [place] | | | JULIANN SILVA OF CARE | [address] | [address] | | | TESTS | | | [...] | + + + + + | [facility] | [address] | [place] [address] | | | SERVICES, ИРИНА | TABITHA [...] [facility] | [address] | [place], [place] | | | RICARDO POINT OF CARE | [address] | [address] | | | TESTS | | | [...] ANA [facility] | [address] | [place], [place] | | | RICARDO POINT OF CARE | [address] | [address] | | | TESTS | | | [...] | + + + + + | [facility] | [address] | [place] [address] | | | SERVICES, CORE | TABITHA [...] [facility]IA | [address] | [place], [place] | | | JULIANN SILVA OF [facility] | [address] | [address] | | | TESTS | | | [...] | + + + + + | [facility] | [address] | [place] [address] | | | ИРИНА ANTOINE | TABITHA [...] (H) | 60 - 99 mg/dL | [facility] - | | | GLUCOSE, | [...] [facility]IA | [address] | [place], [place] | | | RICARDO POINT OF CARE | [address] | [address] | | | TESTS | | | [...] MARIA | [address] | [place], [place] | | | JULIANN SILVA OF [place] | [facility] | [address] | | | TESTS | | | [...] | pause verifies correct patient, procedure, equipment, clinical support associate | | | and site/side marked as [...] + + | [facility] | [address] [facility] | [place] [address] | | | SERVICES, CORE | PARK [...] [facility] | [address] | [place] [address] | | | SERVICES, CORE | PARK [...] [facility] | [address] | [place] [address] | | | SERVICES, CORE | PARK [...] [facility] | [address] | [place] [address] | | | SERVICES, CORE | PARK [...] | | | LABORATORY | | | CONGOLESE | | | SERVICES, | | | [...] | + + + + + | [facility] | [address] | [place] [address] | | | SERVICES, CORE | TABITHA [...] [facility] | [address] | [place] [address] | | | SERVICES, CORE | PARK [...] | + + + + + | [facility] | [address] | [place] [address] | | | SERVICES, CORE | TABITHA [...] [facility] | [address] | [place], [place] | | | JULIANN SILVA OF [place] | [address] | [address] | | | TESTS | | | [...] MARIA | [address] | [place], [place] | | | JULIANN SILVA OF [place] | [facility] | [address] | | | TESTS | | | | + + + + + CAPILLARY BLOOD GLUCOSE (NO CHG), POC (03/16/2017 1:16 PM PDT) + +-------+ + + + | Component | Value | Ref Range | Performed | Pathologist | | | | | At | Signature | + +-------+ + + + | BLOOD | 90 | 60 - 99 mg/dL | [facility] - | | | GLUCOSE, | [...] [facility] | [address] | [place], [place] | | | RICARDO POINT OF CARE | [address] | [address] | | | TESTS | | | [...] [facility] | [address] | [place], [place] | | | GURINDER SILVA | [facility] | [address] | | | TESTS | | | [...] | + + + + + | [facility] | [address] | [place] [address] | | | SERVICES, ИРИНА | TABITHA [...] | | | LABORATORY | | | CONGOLESE | | | SERVICES, | | | [...] | + + + + + | [facility] | [address] | [place] [address] | | | SERVICES, CORE | TABITHA [...] (H) | 60 - 99 mg/dL | [facility] - | | | GLUCOSE, | [...] MARIA | [address] | [place], [place] | | | GURINDER SILVA | [facility] | [address] | | | TESTS | | | [...] | + + + + + | [facility] | [address] | [place] [address] | | | ИРИНА ANTOINE | TABITHA [...] [facility] | [address] | [place], [place] | | | JULIANN SILVA OF CARE | [facility] | [address] | | | TESTS | | | | + + + + + OPERATION RECORD (03/16/2017 9:30 AM PDT) + + | Procedure Note | + + | Dale Mak MD - 03/15/2017 3:42 PM PDT Date of Service: 03/15/2017 Attending | | Surgeon:Ron Powell MD. Electrical Systems Design Engineer(s):Dale Mak MD. | | Preoperative Diagnoses: 1.Cardiogenic [...] The | | patient was transferred to [facility] for further management. At [facility], the patient continued | | to [...] cannulation with micropuncture | | wire. A 7-Japanese sheath was placed in an antegrade direction down the SFA for distal | | perfusion. A 19-Japanese arterial cannula was placed in a retrograde [...] 03/15/2017 15:23:00DT: 03/15/2017 15:42:27Job #: | | [id number] | | | |A 19-Japanese arterial cannula was placed in a retrograde [...] |HS/MODL | | | | | | /[id number] | + + CBC (HEMOGRAM) ONLY (03/16/2017 [...] [facility] | [address] | [place] [address] | | | SERVICES, CORE | PARK [...] [facility] | [address] | [place] [address] | | | SERVICES, CORE | PARK [...] | + + + + + | [facility] | [address] | [place] [address] | | | SERVICES, CORE | TABITHA [...] [facility] | [address] | [place], [place] | | | JULIANN SILVA OF [place] | [address] | [address] | | | TESTS | | | [...] [facility] | [address] | [place], [place] | | | JULIANN SILVA OF CARE | [facility] | [address] | | | TESTS | | | [...] [facility] | [address] | [place], [place] | | | RICARDO POINT OF CARE | [address] | [address] | | | TESTS | | | | + + + + + X-RAY PORTABLE CHEST 1 VIEW (03/16/2017 5:44 AM PDT) + + | Specimen | + + | | + + + + + | Narrative | Performed At | + + + | EXAM: OR CHEST 1 VIEW HISTORY: Evaluate cannula placement. heart | [facility] | | failure. COMPARISON: Yesterday FINDINGS: Endotracheal | RADIOLOGY VOICE | | tube, Diboll-Олег catheter and enteric tube remain in place. [...] Note | + + | Service Account, COINTERRA In Interface - 03/16/2017 8:27 AM PDT EXAM: OR CHEST 1 | | VIEW HISTORY: Evaluate cannula placement. heart failure.COMPARISON: YesterdayFINDINGS: | | Endotracheal tube, Diboll-Олег catheter and enteric tube remain in place. [...] MARIA | [address] | [place], [place] | | | RICARDO POINT OF CARE | [address] | [address] | | | TESTS | | | [...] (H) | 60 - 99 mg/dL | [facility] - | | | GLUCOSE, | [...] [facility] | [address] | [place], [place] | | | JULIANN SILVA OF [facility] | [facility] | [address] | | | TESTS | | | | + + + + + OJ-WI-MXI-KARY ISIDRO RT (03/16/2017 3:42 AM PDT) + [...] [facility] | [address] | [place], [place] | | | JULIANN SILVA OF [place] | [address] | [address] | | | TESTS | | | [...] [facility] | [address] | [place], [place] | | | RICARDO POINT OF CARE | [address] | [address] | | | TESTS | | | [...] | + + + + + | [facility] | [address] | [place] [address] | | | SERVICES, CORE [...] [facility] | [address] | [place], [place] | | | JULIANN SILVA OF [place] | [address] | [address] | | | TESTS | | | [...] | + + + + + | [facility] | [address] | [place] [address] | | | SERVICES, ИРИНА | TABITHA [...] [facility] | [address] | [place] [address] | | | SERVICES, CORE | PARK [...] | | | LABORATORY | | | CONGOLESE | | | SERVICES, | | | [...] | + + + + + | [facility] | [address] | [place] [address] | | | SERVICES, CORE | TABITHA [...] [facility] | [address] | [place] [address] | | | SERVICES, CORE | PARK [...] | + + + + + | [facility] | [address] | [place] [address] | | | SERVICES, CORE | PARK [...] | + + + + + | [facility] | [address] | [place] [address] | | | ARASH, ИРИНА | TABITHA [...] | + + + + + | [facility] | [address] | [place] [address] | | | SERVICES, CORE | TABITHA [...] (H) | 60 - 99 mg/dL | [facility] - | | | GLUCOSE, | [...] [facility] | [address] | [place], [place] | | | JULIANN SILVA OF CARE | [address] | [address] | | | TESTS | | | [...] [facility] | [address] | [place] [address] | | | SERVICES, CORE | PARK [...] [facility] | [address] | [place], [place] | | | JULIANN SILVA OF [facility] | [address] | [address] | | | TESTS | | | [...] | + + + + + | [facility] | [address] | [place] [address] | | | SERVICES, CORE | TABITHA [...] | | | LABORATORY | | | CONGOLESE | | | SERVICES, | | | [...] AST CMNT | No Hemo | | [facility] | | | | | | [...] | + + + + + | [facility] | [address] | [place] [address] | | | SERVICES, CORE | [address] | | | + + + + + JY-YP-CKS-HB,POC RT (03/16/2017 12:22 AM PDT) + + [...] [facility] | [address] | [place], [place] | | | RICARDO POINT OF CARE | [address] | [address] | | | TESTS | | | [...] + + + | [facility] | [address] | [place], [place] | | | RICARDO POINT OF CARE | [address] | [address] | | | TESTS | | | [...] [facility] | [address] | [place], [place] | | | RICARDO POINT OF CARE | [address] | [address] | | | TESTS | | | [...] [facility] | [address] | [place], [place] | | | R[facility]ARDO POINT OF [facility] | [address] | [address] | | | TESTS | | | | + + + + + X-RAY PORTABLE CHEST 1 VIEW (03/15/2017 9:44 PM PDT) + + | Specimen | + + | | + + + + + | Narrative | Performed At | + + + | EXAM: OR CHEST 1 VIEW HISTORY: Evaluate new endotracheal [...] | + + | Service Account, Arely Super Derivatives In Interface - 03/16/2017 8:27 AM PDT EXAM: OR CHEST 1 | | VIEW HISTORY: Evaluate [...] MARIA | [address] | [place], [place] | | | JULIANN SILVA OF [place] | [address] | [address] | | | TESTS | | | [...] MARIA | [address] | [place], [place] | | | RICARDO POINT OF CARE | [address] | [address] | | | TESTS | | | [...] [facility] | [address] | [place] [address] | | | SERVICES, CORE | PARK [...] [facility] | [address] | [place] [address] | | | SERVICES, CORE | PARK [...] [facility] | [address] | [place] [address] | | | SERVICES, [facility] | [address]ITH[address] | | | + [...] | Ambubag and suction available at bedside. [facility] Mac 4 used to | | [...] [facility] | [address] | [place], [place] | | | JULIANN SILVA OF [place] | [address] | [address] | | | TESTS | | | | + + + + + LM-KR-AYB-HB,POC RT (03/15/2017 7:39 PM PDT) + + [...] [facility] | [address] | [place], [place] | | | JULIANN SILVA OF [place] | [address] | [address] | | | TESTS | | | [...] [facility] | [address] | [place], [place] | | | RICARDO POINT OF CARE | [address] | [address] | | | TESTS | | | [...] [facility] | [address] | [place], [place] | | | HILL, POINT OF CARE | [address] | [address] | | | TESTS | | | | + + + + + X-RAY PORTABLE CHEST 1 VIEW (03/15/2017 5:51 PM PDT) + + | Specimen | + + | | + + + + + | Narrative | Performed At | + + + | STUDY: OR CHEST 1 VIEW 03/15/17 17:40:08 COMPARISON: 03/15/17 at | [facility] | | 3:52 PM. HISTORY: Line placement. [...] Interface - 03/15/2017 6:20 PM PDT STUDY: OR CHEST 1 | | VIEW 03/15/17 17:40:08COMPARISON: [...] | | + +---------+ + + | [facility] RADIOLOGY | | | | | [...] given by: Power of | | | state's attorney Patient identity confirmed per policy: Yes Team Pause: | | | Immediatly prior to the procedure a pause per protocol was called. A | | | pause verifies correct patient, procedure, equipment, clinical support associate | | | and site/side marked as [...] modified Seldinger technique (a | | | jfyxdmtx-piyd-uxy-wntdof-pzjo-wbsj-qlrbnvo-lzp-qxhqodzp) was used for | | | vessel [...] Name: Ron Mckeon MRN: | | | [id number] 03/15/2017 Time: 5:26 PM Diagnosis: shock At [...] Jose Ramon Alvarado | | | R2, [facility] Emergency Medicine Personal Pager: [phone] | | | | | + + + LACTATE (03/15/2017 4:49 PM PDT) + + + + + + | Component | Value | Ref Range | Performed | Pathologist | | | | | At | Signature | + + + + + + | LACTATE | 7.5 () | mmol/L | [facility] | | | | | | [...] | + + + + + | [facility] | [address] | [place] [address] | | | ИРИНА ANTOINE | TABITHA [...] (H) | 60 - 99 mg/dL | [facility] - | | | GLUCOSE, | [...] [facility] | [address] | [place], [place] | | | RICARDO POINT OF CARE | [address] | [address] | | | TESTS | | | | + + + + + PROCEDURE NOTE (03/15/2017 4:19 PM PDT) + + + | Narrative | Performed At | + + + | Rondey Hilliard MD 03/15/2017 4:19 PM PROCEDURE: MARKY [...] BL[facility] | [address] | [place], [place] | | | JULIANN SILVA OF CARE | [facility] | [address] | | | TESTS | | | | + + + + + X-RAY PORTABLE CHEST 1 VIEW (03/15/2017 4:03 PM PDT) + + | Specimen | + + | | + + + + + | Narrative | Performed At | + + + | EXAM: OR CHEST 1 VIEW 03/15/17 15:42:37 HISTORY: ECMO [...] Interface - 03/15/2017 6:18 PM PDT EXAM: OR CHEST 1 | | VIEW 03/15/17 15:42:37 [...] [facility] | [address] | [place], [place] | | | R[place]ARDO POINT OF [facility] | [address] | [address] | | | TESTS | | | [...] [facility] | [address] | [place] | | | JULIANN SILVA OF CARE | [facility] | [address] | | | TESTS | | | [...] [facility] | | | | | | R[place] | | | | | | [...] [facility] | [address] | [place], [place] | | | [facility] | [facility] | [address] | | | TESTS | | | [...] [facility] | [address] | [place] [address] | | | SERVICES, CORE | TABITHA [...] | + + + + + | [facility] | [address] | [place] [address] | | | SERVICES, CORE | TABITHA [...] [facility] | [address] | [place] [address] | | | SERVICES, CORE | PARK [...] [facility] | [address] | [place] [address] | | | SERVICES, CORE | PARK [...] | | | LABORATORY | | | CONGOLESE | | | SERVICES, | | | [...] | + + + + + | [facility] | [address] | [place] [address] | | | SERVICES, CORE | TABITHA [...] Division of Cardiothoracic Surgery | | | [facility] - Mail Code [id number] | | | [place] [id number] | | + + + X-RAY PORTABLE CHEST 1 VIEW (03/15/2017 2:32 PM PDT) + + | Specimen | + + | | + + + + + | Narrative | Performed At | + + + | STUDY: OR CHEST 1 VIEW 03/15/17 14:21:08 COMPARISON: 03/15/17. | [facility] | | HISTORY: Introducer placement-June when back [...] Note | + + | Service Account, [employer] Res In Interface - 03/15/2017 2:46 PM PDT STUDY: OR CHEST 1 | | VIEW 03/15/17 14:21:08COMPARISON: [...] + + + + | PRODUCT | [id number] | | [facility] | | | UNIT [...] + + + + | EXPIRATION | [id number] | | [facility] | | | DATE [...] + + + + | BLOOD | [id number] | | [facility] | | | PRODUCT [...] | + + + + + | [facility] | [address] | [place] [address] | | | SERVICES, | [address] [...] + + + + | PRODUCT | [id number] | | [facility] | | | UNIT [...] + + + + | EXPIRATION | [id number] | | [facility] | | | DATE [...] + + + + | BLOOD | [id number] | | [facility] | | | PRODUCT [...] | + + + + + | [facility] | [address] | [place] [address] | | | SERVICES, | [address] [...] + + + + | PRODUCT | [id number] | | [facility] | | | UNIT [...] + + + + | EXPIRATION | [id number] | | [facility] | | | DATE [...] + + + + | BLOOD | [id number] | | [facility] | | | PRODUCT [...] + + | [facility] | [address] [facility] | [place] [address] | | | SERVICES, | [address] [...] + + + + | PRODUCT | [id number] | | [facility] | | | UNIT [...] + + + + | EXPIRATION | [id number] | | [facility] | | | DATE [...] + + + + | BLOOD | [id number] | | [facility] | | | PRODUCT [...] [facility] | [address] | [place] [address] | | | SERVICES, | [address] | | | | TRANSFUSION MEDICINE | | | | + + + + + [id number]-[id number],POC RT (03/15/2017 1:23 PM PDT) + + [...] [facility] | [address] | [place], [place] | | | JULIANN SIL[facility] OF [facility] | [address] | [address] | | | TESTS | | | [...] [facility] | [address] | [place], [place] | | | RICARDO POINT OF CARE | [address] | [address] | | | TESTS | | | [...] Performed At | + + + | [facility] | [facility] DEPT OF | | [facility] Adult Echocardiography | CARDIOLOGY | | Laboratory [address] [place] [address], | | | [place] [address] Pt Name: | | | RON Neena MCKEON Study Date/Time 03/15/2017 / 12:54:21 | | [id number] Most recent | | | prior: -Acc #: [id number] No. previous | | | echos: 0DOB: 1955 61 years Heart Rate: | | | 145 bpmHeight: Blood | | | Pressure: 90/67 mm/HgWeight: 249.0 | | | lb Gender: | | | MBSA: 2.34 m2 Order | | | ID: [id number] Soft Sugar Supervisor: Vahid NOBLES | | | Referring Provider: [...] Report electronically signed by: | | | [id number] Yajaira Johnson MD (03/15/2017, 3:38:52 PM) Final | | | | | | | | | | | | Final | | + + + + + | Procedure Note | + + | Interface, Cardiology Results - 03/15/2017 3:38 PM [facility] | | [facility] Echocardiography Laboratory [address] [place] [address] | | [place], [place] [address] Pt Name: RON Chaudhary | | MIKE Study Date/Time 03/15/2017 / 12:54:21 PMMRN: [id number] Most | | recent prior: -Acc #: [id number] No. previous echos: 0DOB: 1955 61 | | years Heart Rate: 145 bpmHeight: Blood Pressure: 90/67 | | mm/HgWeight: 249.0 lb Gender: MBSA: 2.34 m2 | | Order ID: [id number] Soft Sugar Supervisor: Vahid Parmar RCSReferring Provider: | | Gaurav [...] values Report electronically signed by: | | [id number] Yajaira Johnson MD (03/15/2017, 3:38:52 PM) Final [...] | | | |Report electronically signed by: [id number] Yajaira Johnson MD (03/15/2017, 3:38:52 PM) | | | | | | | | Final | + + + + + + + | Performing | Address | City/State/Zipcode | Phone Number | | Organization | | | | + + + + + | [facility] DEPT OF | [address] | [place], [place] | | | CARDIOLOGY | [address] | [address] | | + + + + + X-RAY PORTABLE CHEST 1 VIEW (03/15/2017 12:46 PM PDT) + + | Specimen | + + | | + + + + + | Narrative | Performed At | + + + | STUDY: OR CHEST 1 VIEW 03/15/17 12:12:08 COMPARISON: None. [...] Interface - 03/15/2017 1:10 PM PDT STUDY: OR CHEST 1 | | VIEW 03/15/17 12:12:08COMPARISON: [...] DEPT OF | [address] | [place], [place] | | | CARDIOLOGY | [address] | [address] | | + + + + + [...] [facility] | [address] | [place] [address] | | | SERVICES, | [address] [...] [facility] | [address] | [place] [address] | | | SERVICES, | [address] [...] + + + + + | [facility] | [address] | [place] [address] | | | SERVICES, CORE | TABITHA [...] | + + + + + | [facility] | [address] | [place] [address] | | | ИРИНА ANTOINE | TABITHA [...] | + + + + + | [facility] | [address] | [place] [address] | | | SERVICES, | [address] [...] [facility] | [address] | [place] [address] | | | SERVICES, ИРИНА | TABITHA [...] [facility] | [address] | [place] [address] | | | SERVICES, CORE | TABITHA [...] [facility] | [address] | [place] [address] | | | SERVICES, CORE | [address] [...] | | | LABORATORY | | | CONGOLESE | | | SERVICES, | | | [...] | + + + + + | [facility] | [address] | [place] [address] | | | SERVICES, CORE | [address] | | | + + + + + [id number],POC RT (03/15/2017 12:16 PM PDT) + + [...] [facility] | [address] | [place], [place] | | | R[facility]ARDO [facility] | [facility] | [address] | | | TESTS | | | [...] | | | 03/15/17 at 1202, Until [facility] 04/02/17 | | | at 2030, [...] | | | | | Until [facility] 04/02/17 at 203, | | | [...] | | | | | | Until [facility] 04/02/17 at 2030, severe | | [...] EVENING, | | | First dose on [facility] 04/02/17 at | | | 2100, Until Discontinued | | + +---+ | | | + +---+ documented in this encounter
--- OUTSIDE RECORDS SUMMARY | ~2019-01-22 | XMS | Encounter Summary ---
Demographics + + + | Address | [address] | | | [place] [address] | + + + | Home Phone [...] [place] | | | | | [address] | | + + + + + Care Team Providers + +------+ + | Care Electrical Automation Engineer Name | Role | Phone | [...] NEPHROLOGY [address] | MD [address] | | | | | [address] | [address] [place] | | | | | [place], [place] | [place] [address] | | | | | [address] | [phone] | | | | | [phone] | | | +--------+ + + + [...] | | | | | | [place] [address] | | | | | | [phone] | | | | | | | [...]
--- OUTSIDE RECORDS SUMMARY | ~2019-01-22 | XMS | Encounter Summary ---
Demographics + + + | Address | [address] | | | [place] [address] | + + + | Home Phone [...] [place] | | | | | [address] | | + + + + + Care Team Providers + +------+ + | Care Irrigation Equipment Remover Name | Role | Phone | + [...] Monitor | CARDIOLOGY [address] | [address] | Interrogation | | | | [place], | [place], | (Primary Dx); SAFE AND VAULT SERVICE MECHAN[place]-D | | | | [place] [address] | [place] [address] | (AICD) [employer] | | | | [phone] | [phone] | 10/16/17 [facility] Wilner; | [...] W | | | | | | [place], | | | | | | [place] [address] | | | | | | [phone] | | | | | | | [...] | e | 23:59 PDT | Interrogation SAFE AND VAULT SERVICE MECHANIC-D | procedure are in the | [...] remote PDF scanned into | | | [facility] for remote interrogation results. Data collected [...] | cardiac defibrillator | + + | SAFE AND VAULT SERVICE MECHANIC-D ASHLEE) [employer] 10/16/17 [facility] | + + | Ischemic cardiomyopathy Other specified forms of chronic ischemic heart disease | + + documented in this encounter"
--- OUTSIDE RECORDS SUMMARY | ~2019-01-22 | XMS | Encounter Summary ---
Demographics + + + | Address | [address] | | | [place] [address] | + + + | Home Phone [...] [place] | | | | | [address] | | + + + + + Care Team Providers + +------+ + | Care Roving Court Reporter Name | Role | Phone | + [...] | Telephone | [facility] [place] | [place], | Medication Related | | 2018 | | CARDIOLOGY [address] | [address]SH [address] | | | | | [place], | [place], | | | | | [place] [address] | [place] [address] | | | | | [phone] | [phone] | | | | | | | [...] W | | | | | | [place], | | | | | | [place] [address] | | | | | | [phone] | | | | | | | [...] | starting 11/30/2018 | | | | [place] coronary | until 12/01/2019 | | | | artery of [place] | | | | | heart without angina | | | | | pectoris | | + +--------+ + + documented as of this encounter Visit Diagnoses + + | Diagnosis | + + | Coronary artery disease involving [place] coronary artery of [place] heart without | | angina pectoris - Primary | + + documented in this encounter"
--- OUTSIDE RECORDS SUMMARY | ~2019-01-22 | XMS | Encounter Summary ---
Demographics + + + | Address | [address] | | | [place] [address] | + + + | Home Phone | | + + + | Preferred Language | Unknown | + + + | Marital Status | | + + + | Synagogue Affiliation | NRP | + + + | Race | White | + + + | Ethnic Group | Not or | + + + Author + + + | Author | [facility] | + + + | Organization | [facility] | + + + | Address | Unknown | + + + | Phone | Unavailable | + + + Support + + + + + | Name | Relationship | Address | Phone | + + + + + | Venice Will | ECON | [address] | | | | | [place] [address] | | + + + + + Care Team Providers + +------+ + | Care Assistant Chief Train Dispatcher Name | Role | Phone | [...] [address] | | | | | | [facility] | | | | | | [place], [place] | | | | | | [address] | | | +--------+ + + + [...]
--- OUTSIDE RECORDS SUMMARY | ~2019-01-22 | XMS | Encounter Summary ---
Demographics + + + | Address | [address] | | | [place] [address] | + + + | Home Phone [...] | [place] | | | | | [address] | | + + + + + Care Team Providers + +------+ + | Care Shuttlecock Feather Trimmer Name | Role | Phone | [...] | | | involving | [address] [place] | | | | | [place] | [place], [place] | [place], [place] | | | | | coronary | [address] | [address] | | | | | artery of | Phone: | Phone: | | | | | [place] heart | [phone] | [phone] | | | | | without | Fax: | Fax: | | | | | angina | [phone] | [phone] | | | | | pectoris | | | + + + + + + + Encounter Details +--------+---------+ + + + | Date | Type | Department | Care Team | Description | +--------+---------+ + + + | 11/18/ | Office | [facility] | Randy Figueroa, | Coronary artery | | 2019 | Visit | MED CTR CARDIAC | [address] | disease involving | | | | REHABILITATION [address] | [place], | [place] coronary | | | | [address] [place] | [place] [address] | artery of [place] | | | | [place] [address] | [phone] | heart without angina | | | | [phone] | | pectoris (Primary | | | [...] might be different from the orig [place]. [facility] CARDIAC REHABILITATION [address] [facility] [address] Cardiac Rehab Date: 11/18/2018 Patient Information Patient Name: Bob Will Date of : 1955 Age: 63 y.o. Encounter Diagnoses Code Name Primary? I25.10 Coronary artery disease involving [place] coronary artery of [place] heart without angina pectoris Yes Z98.61 Post [...] | | | | | | [place] [address] | | | | | | [phone] | | | | | | | | +--------+ + + + + documented as of this encounter Visit Diagnoses + + | Diagnosis | + + | Coronary artery disease involving [place] coronary artery of [place] heart without | | angina pectoris - Primary | + + | Post PTCA Postsurgical percutaneous transluminal coronary angioplasty status | + + documented in this encounter"
--- OUTSIDE RECORDS SUMMARY | ~2019-01-22 | XMS | Encounter Summary ---
Demographics + + + | Address | [address] [place] [address] [address] | | | [place] [address] | + + + | Home Phone | | + + + | Preferred Language | Unknown | + + + | Marital Status | | + + + | Adventism Affiliation | Unknown | + + + | Race | Unknown | + + + | Ethnic Group | Unknown | + + + Author + + + | Author | Cassandra Lockr | + + + | Organization | [facility] | + + + | Address | Unknown | + + + | Phone | Unavailable | + + + Support + + +---------+ + | Name | Relationship | Address | Phone | + + +---------+ + | Venice Mckeon | ECON | Unknown | | + + +---------+ + Care Team Providers + +------+ + | Care Quality Control Microbiology Supervisor Name | Role | Phone | [...] HF chronicity, | | | | | [address] | unspecified heart | | | | [...] RON MCKEON Date of : 1955 | [facility] | | Performing Physician: Rocio | RADIOLOGY | | [place] | | | | | | INDICATIONS [...] MV A Rohan: 0.86 m/s MV Dec Quitman: 3.26 m/s2 | | | MV DecT: [...] | 21.47 mmHg TR Vmax: 2.31 m/s Neck Skewer: ANJANA Authenticated | | | by: Rocio Pearl Report Date/Time: 11-04-2018 19:16:25 | | + + + + + | Procedure Note | + + | Sebastian, Rad Results In - 11/04/2018 7:20 PM PST Patient Name: Belkys MCKEON of | | : 5Accession: [id number] Physician: Rocio | | Alsamara INDICATIONS------ | [...] | 5.92 cmLVPWd: 1.01 cmLVOT Area: 3.17 [id number] Diam: 2.01 cm%FS: 15.56 %EF(Teich): | | [...] mlLAESV Index (A-L): 42.88 ml/m2LAAs A2C: 24.92 [id number] A-L | | A2C: 95.08 mlLALs A2C: 5.54 cmLAAs A4C: 19.37 na8HWLXP A-L A4C: 70.66 mlLALs | | A4C: 4.50 cmRAAs: 18.79 iv0PQRLP A-L: 67.38 mlRAESV MOD: 63.17 mlRALs: 4.44 | | cmTAPSE: 2.12 cmAV maxP.82 mmHgAV meanP.56 mmHgAV Vmax: 1.30 m/Emil | | Vmean: 0.88 m/Emil VTI: 25.33 cmAVA Vmax: 2.55 cm2AVA (VTI): 2.49 sp6ZONX (Vmax): | | 0.00 cm2/m2AVAI (VTI): 0.00 cm2/m2LVOT maxP.40 mmHgLVOT meanP.91 | | mmHgLVSI Dopp: 29.85 ml/m2LVSV Dopp: 63.29 mlLVOT Vmax: 1.04 m/sLVOT Vmean: 0.64 | | m/sLVOT VTI: 19.92 cmMV A Rohan: 0.86 m/sMV Dec Quitman: 3.26 m/s2MV DecT: 218.32 | | msMV E Rohan: 0.71 m/sMV E/A Ratio: 0.82 MV PHT: 63.31 msMVA By PHT: 3.47 | | qg8Svejxh e': 0.04 m/sSeptal E/e': 15.51 Lateral e': 0.06 m/sLateral E/e': 10.91 | | RAP: 5 mmHgRVSP: 26.47 mmHgTR maxP.47 mmHgTR Vmax: 2.31 m/sSonographer: | | DBSAuthenticated by: Rocio AlshancockraReport Date/Time: 11-04-2018 19:16:25IMPRESSION:1. | | This was [...] A Rohan: 0.86 m/s | |MV Dec Quitman: 3.26 m/s2 | |MV DecT: 218.32 ms [...] |TR Vmax: 2.31 m/s | | | |Neck Skewer: ANJANA | |Authenticated by: Rocio Licoeloy | [...] | [address] | [place] [address] | | + + + + + in this encounter Visit Diagnoses + + | Diagnosis | + + | Congestive heart failure, unspecified HF chronicity, unspecified heart failure type | | (HCC) | + +"
--- OUTSIDE RECORDS SUMMARY | ~2019-01-22 | XMS | Encounter Summary ---
Demographics + + + | Address | [address] | | | [place] [address] | + + + | Home Phone | | + + + | Preferred Language | Unknown | + + + | Marital Status | | + + + | Catholic Affiliation | Unknown | + + + | Race | Unknown | + + + | Ethnic Group | Unknown | + + + Author + + + | Author | [facility] | | | and [place] | + + + | Organization | [facility] | | | and [place] | + + + | Address | Unknown | + + + | Phone | Unavailable | + + + Support + + + + + | Name | Relationship | Address | Phone | + + + + + | [place] Will | ECON | [place] | | | | | [address] | | + + + + + Care Team Providers + +------+ + | Care Ceramic Design Engineer Name | Role | Phone | [...] + | 10/27/ | Telephone | [facility] | Jenny, | Other (medication | | 2018 | | CARDIOLOGY [address] | [address] | issue) | | | | [place], | [place], | | | | | [place] [address] | [place] [address] | | | | | [phone] | [phone] | | | | | | | [...] W | | | | | | [place], | | | | | | [place] [address] | | | | | | [phone] | | | | | | | [...]
--- OUTSIDE RECORDS SUMMARY | ~2019-01-22 | XMS | Clinical Summary ---
Demographics + + + | Address | [address] [place] [address] [address] | | | [place] [address] | + + + | Home Phone [...] | | | | | [place] [address] | | + + + + + Care Team Providers + +------+ + | Care Tongue And Groove Machine Operator Name | Role | Phone | + +------+ + | Chato Matson MD | PP | | + +------+ + Source Comments EULOGIO is fully live on both [facility] and [facility] Allergies No Known Allergies Medications [...] resynchronization therapy | 10/17/2017 | | defibrillator (SCIENTIFIC SYSTEMS ANALYST-D) | | + + + | Influenza, [...] edema. 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 | | -secretions improving, cough strong [...] stayExtubated 03/22, started on | | [place] Y9Kbbxg infusion begun 03/22 for daily goal -1 [...] during cath | | lab procedure [facility]. Was shocked 17 times | [...] | | | INC | | | [id number] | | Tejal Pettit MD | | | | | | X / | | | | | | | | /[address] | | | | | | | | [address] | + +------+--------+ +--------+--------+--------+ + + | [...] CROSS | | 16-Pre | 8 | [address] | | | | [place] | | sent | | [place], | | | | L | | | | [place] [address] | | + +--------+ +--------+ + +--------+ | [place]ICAID [place] | OHP | [id number] | 03/07/20 | [phone] | [address] | Medica | | | PLUS | | 17-Pre | 6 | [address] | id | | | OPEN | | sent | | [place], [place] | | | | CARD | | | | [address] | | + +--------+ +--------+ + +--------+ + +--------+ +--------+ + + | Guarantor Name | Accoun | Relation to | Date | Phone | Billing Address | | | t Type | Patient | of | | | | | | | | | | + +--------+ +--------+ + + | Suman,Bob J | Person | Self | [birth year] | [address] | | | al/Negro | | 1956 | [phone] | [address] [place] | | | [place] | | | 8 (Home) | [address] | + +--------+ +--------+ + + Advance [...]
--- OUTSIDE RECORDS SUMMARY | ~2019-01-22 | XMS | Encounter Summary ---
Demographics + + + | Address | [address] | | | [place] [address] | + + + | Home Phone [...] [place] | | | | | [address] | | + + + + + Care Team Providers + +------+ + | Care Rodeo Rider Name | Role | Phone | + [...] | | | involving | [address] [place] | | | | | [place] | [address] | [place] | | | | | coronary | [address] | [address] | | | | | artery of | Phone: | Phone: | | | | | [place] heart | [phone] | [phone] | | | | | without | Fax: | Fax: | | | | | angina | [phone] | [phone] | | | | | pectoris | | | + + + + + + + Encounter Details +--------+---------+ + + + | Date | Type | Department | Care Team | Description | +--------+---------+ + + + | 12/09/ | Office | [facility] | Randy Figueroa, | Coronary artery | | 2019 | Visit | MED CTR CARDIAC | MD [address] | disease involving | | | | REHABILITATION [address] | [place], | [place] coronary | | | | [address] [place] | [place] [address] | artery of [place] | | | | [place] [address] | [phone] | heart without angina | | | | [phone] | | pectoris (Primary | | | [...] note might be different from the orig [facility] CARDIAC REHABILITATION [address] [facility] [address] Cardiac Rehab Discharge Date: 12/09/2018 Patient Information Patient Name: Bob Will Date of : 1955 Age: 63 y.o. Referring Provider: Randy Figueroa MD Encounter Diagnoses Code Name Primary? I25.10 Coronary artery disease involving [place] coronary artery of [place] heart without angina pectoris Yes Z98.61 Post PTCA Cardiac Rehab Phase II Leon atment Plan Bob Will (Bob) is a 62 y.o. male with a history of coronary artery disease post rec ent anterior wall [place], post PTCA and stents of the left main, LAD and LCx on 03/15/17, cardiac shock, left atrial appendage thrombus, pneumonitis and septic shock, and severe in-stent chery nosis, FL in Sep 2017, episodes of VT and subsequent PTCA in Oct 2017, CHF, LVEF 35-40%, GARDE MANGER -D placement in [facility] on 10/17/2017. He has recently increased his metoprolol dose and is on Entresto. He arrives in electric [employer] heelchair and has been inactive. Fall Ri [...] control. Also began walking with his around [employer] 3 days a week along with chasing [...] Healthy Dietary Education Date: 08/03/18 -Referral to Court Security Officer: Date: -DVD: Healthy Eating For Life [...] exercise until stable. Date: Range: -Referral to Machine Cloth Examiner Date: Education Points listed below- Date Completed: [...] Unforeseen circumstances makes the constant trip from [place] to not be a viable option a [...] W | | | | | | [place], | | | | | | [place] [address] | | | | | | [phone] | | | | | | | | +--------+ + + + + documented as of this encounter Visit Diagnoses + + | Diagnosis | + + | Coronary artery disease involving wiyot coronary artery of [place]iy[place] heart without | | angina pectoris - Primary | + + | Post PTCA Postsurgical percutaneous transluminal coronary angioplasty status | + + documented in this encounter
--- OUTSIDE RECORDS SUMMARY | ~2019-01-22 | XMS | Encounter Summary ---
Demographics + + + | Address | [address] | | | [place] [address] | + + + | Home Phone | | + + + | Preferred Language | Unknown | + + + | Marital Status | | + + + | Orthodox Affiliation | NRP | + + + | Race | White | + + + | Ethnic Group | Not or | + + + Author + + + | Author | [facility] | + + + | Organization | [facility] | + + + | Address | Unknown | + + + | Phone | Unavailable | + + + Support + + + + + | Name | Relationship | Address | Phone | + + + + + | [place] Will | ECON | [address] | | | | | [place] [address] | | + + + + + Care Team Providers + +------+ + | Care Offset Press Operator Apprentice Name | Role | [...] | 2018 | Pass | Services at [facility] | | | | | | [address] | | | | | | [facility] | | | | | | Mailcode: [id number] | | | | | | [employer] | | | | | | [place], [place] | | | | | | [address] | | | | | | [phone] | | | +--------+ + + + [...]
--- OUTSIDE RECORDS SUMMARY | ~2019-01-22 | XMS | Encounter Summary ---
Demographics + + + | Address | [address] | | | [place] [address] | + + + | Home Phone [...] | | | | | [place] [address] | | + + + + + Care Team Providers + +------+ + | Care Endoscopy Specialty Technician Name | Role | Phone | [...] | DECANNULATION | | 2017 | | [facility] | [address] | | | | | Admitting Desk | Tabitha Alicea ADIN, | | | | | Located on the | [place] [address] | | | | | floor [address] [facility] | [phone] | | | | | [facility] [address] | | | | | | [place], [place] | | | | | | [address] | | | +--------+---------+ + + + [...] 2:26 PM PDT CLINICAL HOSPITALIST DISCHARGE SUMMARY [facility] Discharging Provider: Aria Rojas MD [...] follow up ludmila miller with a local manual lathe machinist in [place]. #Acute cardiogenic shock in the setting ofSTEMI [...] 44 to 32 during first day at [facility] , with addition decline to [...] (noted on o [facility]side records). Patient on Estero 10/325 q8 as outpatient. Was receiving scheduled [...] then take 7.5 mg (one and one-h longterm tablets) daily starting 04/03/2017 Indications: JAVON thrombus, [...] Number [facility] Yes [phone] [place] [phone] Medina Roger RN 04/02/2017 11:31 Medina Roger RN, 04/02/2017 11:28 AM: Spoke with Latricia, 7 day auth # [id number] has been provided. Contacted Tanisha at facility , arranging anticipated medicaid transport by stretcher at 2 pm today. Spoke with patient and souse concerning dc; they are both in agreement. Medina Roger RN, 04/02/2017 9:20 AM: Contacted Latricia Landry [phone] referencing auth# for SNF placement. Medina Roger RN, 04/01/2017 11:42 AM: Spoke with Malathi [phone], at facility admissions. Patient is accepted to facility. Prov ided information for information deputy brand inspector with [facility] Latricia Landry [phone], Tanisha moncada pursue auth and get back to me. F&MS working with patient and family to add Medicaid ser vices to benefits. When added patient will have travel benefit. CM contacted Shahab Holman re [employer] training. Tamia Van, RN, 03/30/2017 1:21 PM: Received VM from Emily Terrell CM with [facility] to send referral to this location . Referral made, awaiting response. Follow Up: Schedule the following appointment(s) when you get home Follow up with [facility] . Specialties: [facility] Facility, Intermediate Care Facility Contact information [address] [place] [phone] Follow up with LAUREN CHESTER MD. Go on 04/07/2017. Specialty: Cardiology Why: at 8:30 AM to establish Cardiology follow up Contact information [facility] [address] [address] Aria Rojas MD Division of Hospital Medicine Counts Include 234 Beds At [facility] [place] I spent 60 minutes on discharge activities on the day of discharge, including counseling of the patient and his regarding his discharge plan and in coordination of care on the tx rd with nursing, pharmacy, and Heart Failure.Electronically [...] and chronic pain who was transferred to [facility] on 03/15 s/p STEMI with [...] will need Life Vest follow up with manual lathe machinist in [place] on discharge - appr [facility] cardiology assistance with coordinating. -Will f/u further [...] hematoma, but possibly some candidal infection/intertrigo. On Estero 10 Q8H as an outp atient. -Continue [...] 44 to 32 during first day at [facility], with addition decline to 24 [...] Beds At [facility] Pager [phone] I spent 36 minutes on the patient [...] and chronic pain who was transferred to [facility] on 03/15 s/p STEMI with [...] will need Life Vest follow up with manual lathe machinist in [place] on discharge - appr [facility] cardiology assistance with coordinating. Hyperkalemia Resolved with [...] hematoma, but possibly some candidal infection/interrigo. On Estero Q8H as an outpa tient. -Continue nystatin [...] discharge. -CM looking for skilled placement in [place] near patient's home; appreciate assistance At risk for malnutrition Very little PO intake but reportedly improving. Previously had dobhoff feeding tube in the CVICU.Nutrition assistance appreciated. -Calorie count ongoing -Encouraging PO intake Normocytic anemia Hct dropped abruptly from 44 to 32 during first day at [facility], with addition decline to 24 [...] At [facility] Pager [phone] I spent 36 minutes on the patient encounter today, >50% in counseling of the patient's on the above plan of care and in coordination of care on the arizmendi with nursing and Heart Fa ilure. Ariana Ivy DO - 03/30/2017 5:49 PM PDT CLINICAL HOSPITALIST SERVICE PROGRESS NOTE PATIENT'S NAME/MRN: Ron Mckeon/[id number] HOSPITAL DAY: #15 24-HOUR EVENTS & SUBJECTIVE: -patient complained of typical anginal chest pain and had STEMI code last night, anterior S T elevation on serial EKGs, given 325mg ASA, started on heparin drip (had been turned off fo r JAVON thrombus yesterday afternoon with warfarin therapeutic), patient went to the senior cytogenetics laboratory director -on angiography, interventionalists noted "patent [...] daily - Patient will follow up with manual lathe machinist in [place] on discharge; appreciate cardiolo gy assistance with [...] stenosis (noted on o utside records, on Estero q8 as outpatient) Improved today -continue oxycodone [...] discharge. -CM looking for skilled placement in [place] near patient's home; appreciate assistance #Risk for malnutrition Very little PO intake, improving today. Previously had dobhoff feeding tube in the CVICU.Nu trition assistance appreciated. -Calorie count ongoing -Encouraging PO intake #Anemia, normocytic Pt noted to have anemia on H&P. Hct dropped abruptly from 44 to 32 during first day at [facility] , with addition decline to [...] [facility] bed Ariana Bose DO Infrastructure Developerelevator service technician Clinical Hospitalist and Medicine Teaching Service Division of Hospital Medicine Counts Include 234 Beds At [facility] Pager [phone] [facility] DEPARTMENT: Hosp- [phone] Place of Service: - Date of Service: 03/26/2017 CSN: [id number] Modifiers:GC Resident Involved: Yes Suggested CPT: 09051 Subsequent Visit Detailed/High complexity 35 min Cristi [...] patient's significant recent [place], we activated the senior cytogenetics laboratory director. Patient received 325 mg ASA at bedside and was briefly on heparin which has since been disc ontinued. Per cardiology will continue daily 81 mg ASA, plavix and warfarin. Continue to t rend troponins as well. I spent 30 minutes with this patient with >50% of the time evaluating patient at the [facility] e on numerous occasions, evaluating studies and coordinating care w/ cardiology.Electronical ly signed by Ivette Chaudhry MD at 03/30/2017 6:24 AM Gerson Oseguera MD - 03/30/2017 4:31 AM PDTCardiology Preliminary Procedure Note (Full report to follow) Primary Care Provider: Jamal Guerrero MD Referring Provider: No Referring Provider Per Patient State Attorney Staff: Katarina Ngo M.D. Procedure(s): Coronary Angiography [...] None Complications: None Hemostasis: Manual compression in senior cytogenetics laboratory director. Site: [facility] Recommendations: Patient Status: Inpatient Usual post cath care. Ariana Ivy D O - 03/29/2017 9:30 AM PDT CLINICAL HOSPITALIST SERVICE PROGRESS NOTE PATIENT'S NAME/MRN: Ron Mckeon/[id number] HOSPITAL DAY: #14 24-HOUR EVENTS & SUBJECTIVE: [...] tablet 40 mg, 40 mg, oral, DAILY, Jete Ramírez MD, 40 mg at 0847 bisacodyl [...] 2 Units, 2 Units, subcutaneous, Q12H (Scheduled), Ginaal geno Alvarado MD, 2 Units at 03/28/172206 [...] stenosis (noted on o utside records, on Estero 10/ q8 as outpatient) -continue oxycodone 10mg [...] 44 to 32 during first day at [facility] , with addition decline to [...] arm, midline left arm Ariana Bose DO Infrastructure Developerelevator service technician Clinical Hospitalist and Medicine Teaching Service Division of Hospital Medicine Counts Include 234 Beds At [facility] Pager [phone] [facility] DEPARTMENT: Hosp- [phone] Place of Service: - Date of Service: 03/26/2017 CSN: [id number] Modifiers:GC Resident Involved: Yes Suggested CPT: 15490 Subsequent Visit Detailed/High complexity 35 min Ariana Ivy DO - 03/28/2017 8: 06 AM PDT CLINICAL HOSPITALIST SERVICE PROGRESS NOTE PATIENT'S NAME/MRN: Ron Mckeon/[id number] HOSPITAL DAY: #13 24-HOUR EVENTS & SUBJECTIVE: [...] stenosis (noted on o utside records, on Estero 10 q8 as outpatient) Improving L groin [...] 44 to 32 during first day at [facility] , with addition decline to [...] arm, midline left arm Ariana Bose DO Infrastructure Developerelevator service technician Clinical Hospitalist and Medicine Teaching Service Division of Hospital Medicine Counts Include 234 Beds At [facility] Pager [phone] [facility] DEPARTMENT: Hosp- [phone] Place of Service: - Date of Service: 03/26/2017 CSN: [id number] Modifiers:GC Resident Involved: Yes Suggested CPT: 52668 Subsequent Visit Detailed/High complexity 35 min Ariana [...] 44 to 32 during first day at [facility] , with addition decline to [...] arm, midline left arm Ariana Bose DO Infrastructure Developerelevator service technician Clinical Hospitalist and Medicine Teaching Service Division of Hospital Medicine [facility] Pager [phone] [facility] DEPARTMENT: Hosp- [phone] Place of Service: - Date of Service: 03/26/2017 CSN: [id number] Modifiers:GC Resident Involved: Yes Suggested CPT: 31524 Subsequent Visit Detailed/High complexity 35 min Chapis [...] 44 to 32 during first day at [facility] , with addition decline to [...] arm, midline left arm Ariana Bose DO Infrastructure Developerelevator service technician Clinical Hospitalist and Medicine Teaching Service Division of Hospital Medicine [facility] Pager [phone] [facility] DEPARTMENT: Hosp- [phone] Place of Service: - Date of Service: 03/26/2017 CSN: [id number] Modifiers:GC Resident Involved: Yes Suggested CPT: 60001 Subsequent Visit Detailed/High complexity 35 min Wan Cano MD - 03/25/2017 3:07 PM PDT . Cardiovascular Intensive Care Unit Attending Progress Note CVICU D2 Assigned #[id number] ICU Admission Reason Most Recent Value ICU [...] artery. ANY X2 placed in outs surinder senior cytogenetics laboratory director along with IABP. Arrived in [...] Pager Mellisa Haji MD Admitting Provider Cardiology 70278 Zelalem Del Toro MD ICU PM Attending Anesthesiology 24290 Code Status Code Status Full Code The Advanced Care Note for this patient can be found under the notes tab in chart review. Quality section Reardon necessity reviewed: Hourly/Accurate measurement of urinary output for clinical manage ment of critically ill patients Wan Deleon MD, JOHN, ERVIN Cardiovascular Intensive Care Unit [address] [address] I have spent a total of 38 [...] xceptions/additions as noted. Date of Service: 03/25/2017 [facility] DEPARTMENT: ANE ICU CARDIAC Place of Service:- Inpatient CSN: [id number] Suggested Modifier: GC - Resident Involved Suggested CPT: TO AIRPORT SKILLED MAINTENANCE SUPERVISOR Jose Ramon Khan MD - 03/24/2017 10:54 AM PDT . Cardiovascular Intensive Care Unit Team Progress Note CVICU D2 Assigned #[id number] ICU Admission Reason Most Recent Value ICU [...] artery. ANY X2 placed in outs surinder senior cytogenetics laboratory director along with IABP. Arrived in [...] & Plan Patient went into VFib during senior cytogenetics laboratory director procedure at [facility]. Was shocked 17 times Targeted temperature [...] edema. Patient was difficult intubation at outside senior cytogenetics laboratory director. -secretions improving, cough strong -s/p [...] Pager Mellisa Haji MD Admitting Provider Cardiology 14850 Zelalem Del Toro MD ICU PM Attending Anesthesiology 55061 The Advanced Care Note for this patient [...] Alvarado MD Author:Jose Ramon Alvarado MD [address] [id number] signed by Jose Ramon Alvarado MD at 03/24/2017 11:00 AM Wan Cano MD - 03/24/2017 9:47 AM PDTFormatting of this note might be diff erent from the original. Cardiovascular Intensive Care Unit Attending Progress Note CVICU D2 Assigned #[id number] ICU Admission Reason Most Recent Value ICU [...] artery. ANY X2 placed in outs surinder senior cytogenetics laboratory director along with IABP. Arrived in [...] Pager Mellisa Haji MD Admitting Provider Cardiology 09228 Zelalem Del Toro MD ICU PM Attending Anesthesiology 75796 Code Status Code Status Full Code The Advanced Care Note for this patient can be found under the notes tab in chart review. Quality section Reardon necessity reviewed: Hourly/Accurate measurement of urinary output for clinical manage ment of critically ill patients Wan Deleon MD, JOHN, ERVIN Cardiovascular Intensive Care Unit [address] [address] I have spent a total of 42 [...] xceptions/additions as noted. Date of Service: 03/24/2017 [facility] DEPARTMENT: ANE ICU CARDIAC Place of Service:- Inpatient CSN: [id number] Suggested Modifier: GC - Resident Involved Suggested CPT: TO AIRPORT SKILLED MAINTENANCE SUPERVISOR Author:Wan Deleon Md, MD [address] [address]Rrryspjeunrxuu signed by Wan Deleon MD at 03/24/2017 9:49 AM PDTToTamia lieberman PA-C - 03/23/2017 11:54 PM PDTFormatting of this note might be diff erent from the original. Cardiovascular Intensive Care Unit Clinical Update Note Team: D2 Team Pager: [phone] Attending: Katey Pt Name: Ron Mckeon ID: Abbreviated HPI Abbreviated HPI / Daily Assessment Ron Mckeon is a 61 year old man with acute cardiogenic shock in the setting of acu te STEMI from thrombosed left main coronary artery. Initially had lesion in proximal LAD and distal LM, but then acutely thrombosed his left main coronary artery. ANY X2 placed in outs surinder senior cytogenetics laboratory director along with IABP. Arrived in [...] Unit Team Progress Note CVICU D2 Assigned #[id number] ICU Admission Reason Most Recent Value ICU [...] artery. ANY X2 placed in outs surinder senior cytogenetics laboratory director along with IABP. Arrived in [...] & Plan Patient went into VFib during senior cytogenetics laboratory director procedure at [facility]. Was shocked 17 times Targeted temperature [...] edema. Patient was difficult intubation at outside senior cytogenetics laboratory director. -fevering nightly, cultures negative, WBC [...] Pager Mellisa Haji MD Admitting Provider Cardiology 73457 The Advanced Care Note for this patient [...] Ramon Alvarado MD Author:Jose Ramon Alvarado MD [address] [address] [place] [address]Cilkdgbwofqubj signed by Jose Ramon Alvarado MD at 03/23/2017 11:41 AM Wan Cano MD - 03/23/2017 9:51 AM PDTFormatting of this note might be diff erent from the original. Cardiovascular Intensive Care Unit Attending Progress Note CVICU D2 Assigned #[id number] ICU Admission Reason Most Recent Value ICU [...] artery. ANY X2 placed in outs surinder senior cytogenetics laboratory director along with IABP. Arrived in [...] Pager Mellisa Haji MD Admitting Provider Cardiology 73359 Code Status Code Status Full Code The [...] JOHN, ERVIN Cardiovascular Intensive Care Unit [address] [address] I have spent a total of 44 [...] xceptions/additions as noted. Date of Service: 03/23/2017 [facility] DEPARTMENT: [facility] ICU CARDIAC Place of Service:- Inpatient CSN: [id number] Suggested Modifier: GC - Resident Involved Suggested CPT: TO AIRPORT SKILLED MAINTENANCE SUPERVISOR Tamia De La Paz PA-C - 03/22/2017 7:58 PM PDT . Cardiovascular Intensive Care Unit Clinical Update Note Team: D2 Team Pager: [phone] Attending: Abdulaziz Merrill Name: Ron Mckeon ID: [...] Unit Attending Progress Note CVICU D2 Assigned #[id number] ICU Admission Reason Most Recent Value ICU [...] Pager Mellisa Haji MD Admitting Provider Cardiology 87127 Code Status Code Status Full Code Quality section A-Line necessity reviewed: Ixts-jv-vmsa blood pressure monitoring Reardon necessity reviewed: Hourly/Accurate [...] of Service: 03/22/2017 Author:Anurag Ashby MD [address] [address]Mwgnkzvzsexkle signed by Anurag Ashby MD at 03/22/2017 11:07 AM P Macho Sellers MD - 03/22/2017 11:00 AM PDT Cardiovascular Intensive Care Unit Team Progress Note CVICU D2 Assigned #[id number] ICU Admission Reason Most Recent Value ICU [...] & Plan Patient went into VFib during senior cytogenetics laboratory director procedure at [facility]. Was shocked 17 times Targeted temperature [...] edema. Patient was difficult intubation at outside senior cytogenetics laboratory director. -vanc zosyn stopped 03/17 -fever [...] Pager Mellisa Haji MD Admitting Provider Cardiology 20015 This patient does not have an Advanced Care Note for this Admission. Please use the Goal of care section of your ICU navigator to document the advanced care discussion. Quality section A-Line necessity reviewed: Flmn-jv-njze blood pressure monitoring Reardon necessity reviewed: Hourly/Accurate measurement of urinary output for clinical manage ment of critically ill patients FAST HUG Feeding: Tube Feeds: Replete @ 55 mL/hr Analgesia: APAP, hydromorphone PRN Sedation: N/A Thromboprophylaxis: Heparin infusion Head of Bed: Head of Bed >30 degrees Ulcer Prophylaxis: Famotidine Glycemic Control: insulin infusion Created by Macho Gaytan MD Author:Macho Gaytan MD [address] [address]Qunxamdrqyvnsq signed by Macho Gaytan MD at 03/23/2017 12:35 PM PDTT Tamia leon PA-C - 03/21/2017 7:02 PM PDTFormatting of this note might be different f rom the original. Cardiovascular Intensive Care Unit Clinical Update Note Team: D2 Team Pager: [phone] Attending: Abdulaziz Merrill Name: Ron Mckeon ID: [...] Opens eyes, nods head. Follows commands for supervisor fruit grading and Plan: Hospital Problems Priority POA Head/Neck [...] Unit Team Progress Note CVICU D2 Assigned #[id number] ICU Admission Reason Most Recent Value ICU [...] & Plan Patient went into VFib during senior cytogenetics laboratory director procedure at [facility]. Was shocked 17 times Targeted temperature [...] edema. Patient was difficult intubation at outside senior cytogenetics laboratory director. -vanc zosyn stopped 03/17 -fever [...] Pager Mellisa Haji MD Admitting Provider Cardiology 94328 This patient does not have an Advanced Care Note for this Admission. Please use the Goal of care section of your ICU navigator to document the advanced care discussion. Quality section A-Line necessity reviewed: Biag-xz-ybkc blood pressure monitoring CVC necessity reviewed: Hemodynamic [...] Macho Gaytan MD Author:Macho Gaytan MD [address] [address]Vvlwgxoufxiuij signed by Macho Gaytan MD at 03/21/2017 1:43 PM PDTM Anurag coates MD - 03/21/2017 12:22 PM PDT Cardiovascular Intensive Care Unit Attending Progress Note CVICU D2 Assigned #[id number] ICU Admission Reason Most Recent Value ICU [...] Pager Mellisa Haji MD Admitting Provider Cardiology 14234 Code Status Code Status Full Code Quality section A-Line necessity reviewed: Qgbd-zl-depk blood pressure monitoring CVC necessity reviewed: Plan [...] Date of Service: 03/21/2017 Author:Anurag Ashby MD [address] [address] [place] [address]Kaimledjgoemon signed by Anurag Ashby MD at 03/21/2017 12:22 PM P Jose Ramon Coburn MD - 03/20/2017 12:36 PM PDTFormatting of this note might be differen t from the original. Cardiovascular Intensive Care Unit Team Progress Note CVICU D2 Assigned #[id number] ICU Admission Reason Most Recent Value ICU [...] & Plan Patient went into VFib during senior cytogenetics laboratory director procedure at [facility]. Was shocked 17 times Targeted temperature [...] edema. Patient was difficult intubation at outside senior cytogenetics laboratory director. -vanc zosyn stopped 03/17 -fever [...] Pager Mellisa Haji MD Admitting Provider Cardiology 06329 Quality section A-Line necessity reviewed: Dazl-xv-mswv blood pressure monitoring CVC necessity reviewed: Hemodynamic [...] Alvarado MD Author:Jose Ramon Alvarado MD [address] [address]Bymqzmiswynqoq signed by Jose Ramon Alvarado MD at 03/20/2017 12:49 PM PDTMoulton, Anurag Soni MD - 03/20/2017 12:18 PM PDTFormatting of this note might be differen t from the original. Cardiovascular Intensive Care Unit Attending Progress Note CVICU D2 Assigned #[id number] ICU Admission Reason Most Recent Value ICU [...] Pager Mellisa Haji MD Admitting Provider Cardiology 12484 Code Status Code Status Full Code Quality section A-Line necessity reviewed: Bhvy-ha-farj blood pressure monitoring CVC necessity reviewed: Medication [...] of Service: 03/20/2017 Author:Anurag Ashby MD [address] [address]Beyjszxyuyjvze signed by Anurag Ashby MD at 03/20/2017 12:18 PM P Raul Conte MD - 03/19/2017 11:01 PM PDTFormatting of this note might be different fro m the original. Cardiovascular Intensive Care Unit Attending Progress Note CVICU D2 Assigned #[id number] ICU Admission Reason Most Recent Value ICU [...] Pager Mellisa Haji MD Admitting Provider Cardiology 09133 Code Status Code Status Full Code Quality section A-Line necessity reviewed: Idht-mk-alwu blood pressure monitoring CVC necessity reviewed: Hemodynamic [...] Date of Service: 03/19/2017 Author:Raul Wei MD [address] [address] [place] [address]Gmimrudmsalprw signed by Raul Wei MD at 03/19/2017 11:01 PM PD TMillerJose Ramon MD - 03/19/2017 4:49 PM PDT Cardiovascular Intensive Care Unit Team Progress Note CVICU D2 Assigned #[id number] ICU Admission Reason Most Recent Value ICU [...] thrombosed/dissected his left main coronary artery. S/p AYN X2. Plavix loaded at the outside hospital and transp orted on ticagrelor and bivalirudin. Troponin peaked at 576 on 03/15. - DAPT: ASA 81 mg daily + Plavix 75 mg daily Coronary artery disease Yes Ventricular fibrillation (HCC) No Current Assessment & Plan Patient went into VFib during senior cytogenetics laboratory director procedure at [facility]. Was shocked 17 times Targeted temperature [...] edema. Patient was difficult intubation at outside senior cytogenetics laboratory director. -vanc zosyn stopped 03/17 -fever [...] Pager Mellisa Haji MD Admitting Provider Cardiology 35972 Quality section A-Line necessity reviewed: Lyhz-bt-feyv blood pressure monitoring CVC necessity reviewed: Hemodynamic monitoring Reardon necessity reviewed: Hourly/Accurate measurement of urinary output for clinical manage ment of critically ill patients FAST HUG Feeding: TFs Analgesia: multimodal Sedation: propofol Thromboprophylaxis: Heparin infusion Head of Bed: Head of Bed >30 degrees Ulcer Prophylaxis: protonix Glycemic Control: insulin infusion Created by Jose Ramon Alvarado MD Author:Jose Ramon Alvarado MD [address] [address]Raoshixvdxuslp signed by Jose Ramon Alvarado MD at 03/19/2017 4:54 PM Lee Fernandez MD - 03/19/2017 2:22 PM PDTFormatting of this note might be different fr om the original. . Extracorporeal Life Support Service Daily Progress Note Pager #[phone] Type: Veno-Arterial ([place] [address] [place] [address]) Date of insertion: 03/15/2017 Diagnosis:Cardiogenic shock Dressing [...] Unit Attending Progress Note CVICU D2 Assigned #[id number] ICU Admission Reason Most Recent Value ICU [...] Pager Mellisa Haji MD Admitting Provider Cardiology 41642 Code Status Code Status Full Code Quality section A-Line necessity reviewed: Ayzk-ux-ofaa blood pressure monitoring CVC necessity reviewed: Medication [...] Date of Service: 03/19/2017 Author:Anurag Ashby MD [address] P DTJose Ramon Alvarado MD - 03/18/2017 12:56 PM PDTFormatting of this note might be differen t from the original. Cardiovascular Intensive Care Unit Team Progress Note CVICU D2 Assigned #[id number] ICU Admission Reason Most Recent Value ICU [...] & Plan Patient went into VFib during senior cytogenetics laboratory director procedure at [facility]. Was shocked 17 times Targeted temperature [...] edema. Patient was difficult intubation at outside senior cytogenetics laboratory director. -vanc zosyn stopped today Abnormal [...] Pager Mellisa Haji MD Admitting Provider Cardiology 29927 Quality section A-Line necessity reviewed: Wodk-yn-rkiv blood pressure monitoring CVC necessity reviewed: Hemodynamic monitoring Reardon necessity reviewed: Hourly/Accurate measurement of urinary output for clinical manage ment of critically ill patients FAST HUG Feeding: trickle feeds Analgesia: multimodal Sedation: propofol Thromboprophylaxis: Heparin infusion Head of Bed: Head of Bed >30 degrees Ulcer Prophylaxis: nexium Glycemic Control: insulin infusion Created by Jose Ramon Alvarado MD Author:Jose Ramon Alvarado MD [address] [id number] signed by Jose Ramon Alvarado MD at 03/18/2017 1:27 PM PDTMoulton, Anurag Soni MD - 03/18/2017 11:56 AM PDTFormatting of this note might be differen t from the original. Cardiovascular Intensive Care Unit Attending Progress Note CVICU D2 Assigned #[id number] ICU Admission Reason Most Recent Value ICU [...] Pager Mellisa Haji MD Admitting Provider Cardiology 42970 Code Status Code Status Full Code Quality section A-Line necessity reviewed: Kipk-je-esej blood pressure monitoring CVC necessity reviewed: Medication [...] of Service: 03/18/2017 Author:Anurag Ashby MD [address] [address]Tkaxqdrsscyuvc signed by Anurag Ashby MD at 03/18/2017 11:59 AM Lee Prince MD - 03/18/2017 11:37 AM PDTFormatting of this note might be different from nissa suh original. . Extracorporeal Life Support Service Daily Progress Note Pager #[phone] Type: Veno-Arterial (CPT 21437 or 20176) Diagnosis:Cardiogenic shock Dressing changed: no Dressing Changed [...] Life Support Service Daily Progress Note Pager #[phone] Type: Veno-Arterial (CPT 08898 or 83690) Date of insertion: 03/15/2017 Diagnosis:Cardiogenic shock Dressing [...] Unit Attending Progress Note CVICU D2 Assigned #[id number] ICU Admission Reason Most Recent Value ICU [...] Pager Mellisa Haji MD Admitting Provider Cardiology 02091 Quality section A-Line necessity reviewed: Ntsv-kt-runj blood pressure monitoring CVC necessity reviewed: Rapid [...] Date of Service: 03/17/2017 Author:Raul Wei MD [place] [address] [place] [address]Cbnnhlnrbxawcl signed by Raul Wei MD at 03/17/2017 9:20 PM PD Anurag Kaba MD - 03/17/2017 1:58 PM PDTFormatting of this note might be different fro m the original. Cardiovascular Intensive Care Unit Attending Progress Note CVICU D2 Assigned #[id number] ICU Admission Reason Most Recent Value ICU [...] Pager Mellisa Haji MD Admitting Provider Cardiology 39326 Quality section A-Line necessity reviewed: Gwyk-uh-vcpv blood pressure monitoring CVC necessity reviewed: Medication [...] of Service: 03/17/2017 Author:Anurag Ashby MD [address] [address]Lfofxjyeqasfme signed by Anurag Ashby MD at 03/17/2017 2:00 PM P Mauri Calderon - 03/17/2017 1:01 PM PDTTransthoracic echocardiogram completed. Final r eport to follow. Teddy Ibrahim DO, MS - 03/17/2017 10:00 AM PDT Cardiovascular Intensive Care Unit Team Progress Note CVICU D2 Assigned #[id number] ICU Admission Reason Most Recent Value ICU [...] & Plan Patient went into VFib during senior cytogenetics laboratory director procedure at [facility]. Was shocked 17 times Targeted temperature [...] edema. Patient was difficult intubation at outside senior cytogenetics laboratory director. -vanc zosyn stopped today Abnormal [...] Pager Mellisa Haji MD Admitting Provider Cardiology 85055 This patient does not have an Advanced Care Note for this Admission. Please use the Goal of care section of your ICU navigator to document the advanced care discussion. Quality section A-Line necessity reviewed: Bjgy-jk-thhf blood pressure monitoring CVC necessity reviewed: Hemodynamic monitoring Reardon necessity reviewed: Hourly/Accurate measurement of urinary output for clinical manage ment of critically ill patients FAST HUG Feeding: Tube Feeds Analgesia: apap, oxy, hm Sedation: propofol Thromboprophylaxis: Heparin infusion Head of Bed: Head of Bed Flat Ulcer Prophylaxis: Pantoprazole Glycemic Control: insulin infusion Created by Teddy eKe Do, MS [facility] DEPARTMENT: [facility] ICU CARDIAC Place of Service:- Inpatient CSN: [id number] Suggested Modifier: GC - Resident Involved Suggested CPT: TO AIRPORT SKILLED MAINTENANCE SUPERVISOR Author:Teddy Kee Do, MS [address] [address]Tiurzefqhfsctu signed by Teddy Kee DO, MS at 03/17/2017 6:35 PM PDTRaul Wei MD - 03/16/2017 7:38 PM PDT Cardiovascular Intensive Care Unit Attending Progress Note CVICU D2 Assigned #[id number] ICU Admission Reason Most Recent Value ICU [...] Pager Mellisa Haji MD Admitting Provider Cardiology 83595 Quality section A-Line necessity reviewed: Xtjh-fc-huti blood pressure monitoring CVC necessity reviewed: Rapid [...] Date of Service: 03/16/2017 Author:Raul Wei MD [facility] [address] [place] [address]Glbvnuaijpgapy signed by Raul Wei MD at 03/17/2017 11:03 AM PD Jose Ramon Rodriguez MD - 03/16/2017 5:15 PM PDT Cardiovascular Intensive Care Unit Team Progress Note CVICU D2 Assigned #[id number] ICU Admission Reason Most Recent Value ICU [...] & Plan Patient went into VFib during senior cytogenetics laboratory director procedure at [facility]. Was shocked 17 times Now on [...] edema. Patient was difficult intubation at outside senior cytogenetics laboratory director. -bridget retana for now Physical [...] Pager Mellisa Haji MD Admitting Provider Cardiology 16976 Quality section A-Line necessity reviewed: Ifnl-lf-zlqi blood pressure monitoring CVC necessity reviewed: Hemodynamic [...] Alvarado MD Author:Jose Ramon Alvarado MD [address] [address]Spgcaeshzcsvpx signed by Jose Ramon Alvarado MD at [...] Unit Attending Progress Note CVICU D2 Assigned #[id number] ICU Admission Reason Most Recent Value ICU [...] ICU Day #2 after being transferred from [place] in [place] in acute cardiogenic archie ck following an anterior STEMI. Upon arrival to [facility], decision was made to go [...] Pager Mellisa Haji MD Admitting Provider Cardiology 58939 Quality section A-Line necessity reviewed: Ywsc-ed-hvlk blood pressure monitoring CVC necessity reviewed: Hemodynamic [...] of Service: 03/16/2017 Author:Anurag Ashby MD [address] [address]Iflmamdrlsefrk signed by Anurag Ashby MD at 03/16/2017 1:23 PM Lee Prince MD - 03/16/2017 9:41 AM PDTFormatting of this note might be different from t vikash original. . Extracorporeal Life Support Service Daily Progress Note Pager #[phone] Type: Veno-Arterial (CPT 89497 [place] [address]) Diagnosis:Cardiogenic shock Dressing changed: no Dressing Changed [...] Clinical Update Note Team: D2 Team Pager: [phone] Attending: Abdulaziz Pt Name: Ron Mckeon ID: [...] Date of Service: 03/16/2017 Mirna Berumen PA-C [facility] DEPARTMENT: [facility] ICU CARDIAC Place of Service:- Inpatient CSN: [id number] Suggested Modifier: None Suggested CPT: TO AIRPORT SKILLED MAINTENANCE SUPERVISOR Mirna Berumen PA-C Everardo Valladares MD - 03/15/2017 9:04 PM PDT Cardiovascular Intensive Care Unit Attending Progress Note CVICU D2 Assigned #[id number] ICU Admission Reason Most Recent Value ICU Admission reason Cardiogenic Shock filed at 03/15/2017 1531 Hospital admission dx: left anterior descending artery occlusion, needs cabg Days in ICU Days in Hospital Medical Decision Making ICU Day #1 after being transferred from [place] in [place] in acute cardiogenic archie ck following an anterior STEMI. Upon arrival to [facility], decision was made to go [...] Pager Mellisa Haji MD Admitting Provider Cardiology 18221 Quality section A-Line necessity reviewed: Nftr-gv-mbuu blood pressure monitoring CVC necessity reviewed: Hemodynamic [...] and the recent imaging available. Seen with PA/MANAGER SPECIAL EVENTS Winston Cole. Please see their note for details. I reviewed the documented findings, all data and the recent imaging available. Date of Service: 03/15/2017 Author:Everardo Cintron MD [address] [address]Anaonpjnkifnwz signed by Everardo Cintron MD at 03/15/2017 9:[address] - 03/15/2017 2:11 PM PDTTransthoracic echocardiogram completed. Final r eport to follow. atrick Ruiz MD,MPH - 03/15/2017 2:00 PM PDT . Extracorporeal Life Support Service Consult Service Note Pager #[phone] Date: 03/15/17 Author: Patrick Ruiz MD,MPH Consulting Attending: Mellisa Haji MD Reason for Consult: VA ECMO Consideration HPI: 61 year old male who presents this afternoon to [facility] in acute cardiogenic shock second maciej to STEMI / thrombosed L main coronary artery. He was transferred from [place]. His symptoms started this morning around 3am and was seen in [place], [place]. He was diagnosed w ith an anterior STEMI and transferred to the senior cytogenetics laboratory director in [place], [place]. He was found to h ave [...] and dopamine). On arrival to [facility], he was in profound cardiogenic shock and hypoxic. His MAP was in the 40s. He was tach ycardic into the 150s. IABP was increased to 1:2. Past Medical History: Past Medical History: Diagnosis Date Cardiogenic shock ([facility]) 03/15/2017 Coronary artery disease 03/15/2017 Hypercholesterolemia Hypertension [...] from cardiogenic shock. Patrick Ruiz MD, MPH business services administrator Trauma, Critical Care & Acute Care Surgery Counts Include [facility] B[facility] onies, Patrick Sexton MD,MPH - 03/15/2017 1:48 PM PDT . . Extracorporeal Life Support Service Initiation Note Pager #[phone] Date of service: 03/15/2017 Author: Patrick Ruiz Md,Mph ECMO Type: Veno-Arterial (CPT 32961 or 98760) Oxygenation index FiO2: 100 MAP: 22 Diagnosis:Cardiogenic [...] old male who presents this afternoon to [facility] in acute cardiogenic shock secondary [...] | + +--------+ + + + | UL-GV-NJD-HB,POC RT | Routin | 03/19/2017 | ST [...] +---+--------+ + +--------+ + + + | CM-UM-KCC-HB,POC RT | Routin | 03/19/2017 | ST [...] | + +--------+ + + + | FM-NT-OIG-HB,POC RT | Routin | 03/19/2017 | ST elevation | Results for this | | | e | 10:06 AM | myocardial | procedure are in the | | | | PDT | infarction involving | results section. | | | | | left main coronary | | | | | | artery (HCC) | | + +--------+ + + + | QZ-IF-JIK-HB,POC RT | Routin | 03/19/2017 | ST [...] | + +--------+ + + + | VL-BM-DZX-HB,POC RT | Routin | 03/17/2017 | ST [...] | + +--------+ + + + | KU-CX-YTH-HB,POC RT | Routin | 03/16/2017 | ST [...] | + +--------+ + + + | VS-UM-ZQZ-HB,POC RT | Routin | 03/16/2017 | ST [...] | + +--------+ + + + | WP-GR-MZI-HB,POC RT | Routin | 03/15/2017 | ST [...] | + +--------+ + + + | BA-YA-ABG-HB,POC RT | Routin | 03/15/2017 | ST [...] | + +--------+ + + + | CD-QJ-IHN-HB,POC RT | Routin | 03/15/2017 | ST [...] Height: 175 cm Weight: 89 kgBSA: 2.05 [id number] PHYSICIAN:Katarina Ngo, | | .FELLOW:Gerson Mejias M.D. [...] right coronary angiography.COMPLICATIONS:None.TECHNIQUE:Right femoral artery | | 6-Zambian 10 cm [place] sheath, 6-Zambian XB 3.5 guide catheter, 5-Zambian JR4 | | catheter.DESCRIPTION OF PROCEDURE:Informed consent [...] modified Seldinger technique and a | | 5-Zambian micropuncture system, a 6-Zambian 10 cm [place] sheath was placed in the right | | femoral artery. A 6-Zambian XB 3.5 guide catheter was inserted into the ascending aorta | | over a guidewire. The guidewire was removed. The catheter was aspirated and flushed. | | The left coronary system was selectively engaged and imaged in multiple projections. A | | 5-Zambian Kymberly right 4 catheter was advanced to [...] DOSE AREA | | PRODUCT: 3749 cGy [id number]:Aortic pressure 87/15, mean aortic pressure 63, heart [...] 03/30/2017 04:50:01DT: | | 03/30/2017 08:34:34Job #: [id number] | |extending from it into the LAD. [...] |YDT/MODL | | | | | | /[id number] | + + CAPILLARY BLOOD GLUCOSE (NO [...] + + + | [facility] | [address] | [place], [place] | | | JULIANN SILVA OF [facility] | [address] | [address] | | | TESTS | | | [...] [facility] | [address] | [place] [address] | | | SERVICES, CORE | PARK [...] [facility] | [address] | [place] [address] | | | SERVICES, CORE | PARK [...] [facility] | [address] | [place] [address] | | | SERVICES, CORE | PARK [...] | | | LABORATORY | | | UKRAINIAN | | | SERVICES, | | | [...] + + + | [facility] | [address] | [place] [address] | | | SERVICES, CORE | TABITHA [...] | + + + + + | [facility] | [address] | [place] [address] | | | SERVICES, CORE | PARK [...] [facility] | [address] | [place] [address] | | | ИРИНА ANTOINE | TABITHA [...] + + + | [facility] | [address] | [place], [place] | | | [facility] | [address] | [address] | | | TESTS | | | [...] [facility] | [address] | [place], [place] | | | [facility] | [address] | [address] | | | TESTS | | | [...] [facility] | [address] | [place], [place] | | | [facility] | [address] | [address] | | | TESTS | | | [...] | + + + + + | [facility] | [address] [facility] | [place] [address] | | | SERVICES, CORE | PARK [...] | | | LABORATORY | | | UKRAINIAN | | | SERVICES, | | | [...] [facility] | [address] | [place] [address] | | | SERVICES, CORE | TABITHA [...] | + + + + + | [facility] | [address] | [place] [address] | | | ARASH, ИРИНА | [address] | | | + + + + + MAGNESIUM, PLASMA (04/01/2017 3:43 AM PDT) + +-------+ + + + | Component | Value | Ref Range | Performed | Pathologist | | | | | At | Signature | + +-------+ + + + | MAGNESIUM,P | 2.2 | 1.8 - 2.5 mg/dL | [facility] | | | FEI | | | [...] | + + + + + | [facility] | [address] | [place] [address] | | | SERVICES, CORE | PARK [...] (H) | 70 - 99 mg/dL | [facility] - | | | GLUCOSE, [...] | + + + + + | [facility] | [address] | [place], [place] | | | JULIANN SILVA OF CARE | [address] | [address] | | | TESTS | | | [...] [facility] | [address] | [place], [place] | | | JULIANN SILVA OF CARE | [facility] | [address] | | | TESTS | | | [...] (H) | 70 - 99 mg/dL | [facility] - | | | GLUCOSE, [...] [facility] | [address] | [place], [place] | | | JULIANN SILVA [facility] CARE | [address] | [address] | | | TESTS | | | [...] [facility] | [address] | [place], [place] | | | GURINDER SILVA | [facility] | [address] | | | TESTS | | | [...] [facility] | [address] | [place] [address] | | | ИРИНА ANTOINE | TABITHA [...] | | | LABORATORY | | | UKRAINIAN | | | SERVICES, | | | [...] | + + + + + | [facility] | [address] | [place] [address] | | | SERVICES, CORE | PARK [...] + | [facility] | [address] | [place] [address] | | | SERVICES, CORE | [address] | | | + + + + + MAGNESIUM, PLASMA (03/31/2017 3:45 AM PDT) + +-------+ + + + | Component | Value | Ref Range | Performed | Pathologist | | | | | At | Signature | + +-------+ + + + | MAGNESIUM,P | 2.4 | 1.8 - 2.5 mg/dL | [facility] | | | DENISEMA | | | [...] | + + + + + | [facility] | [address] | [place] [address] | | | ARASH, CORE | PARK [...] [facility] | [address] | [place] [address] | | | SERVICES, CORE | TABITHA [...] - [facility] | [address] | [place], [place] | | | [facility] | [address] | [address] | | | TESTS | | | [...] | | | LABORATORY | | | UKRAINIAN | | | SERVICES, | | | [...] | + + + + + | [facility] | [address] | [place] [address] | | | ИРИНА ANTOINE | TABITHA [...] DEPT OF | [address] | [place], [place] | | | CARDIOLOGY | [address] | [address] | | + + + + + [...] [facility] | [address] | [place], [place] | | | [facility] | [address] | [address] | | | TESTS | | | [...] | | | LABORATORY | | | UKRAINIAN | | | SERVICES, | | | [...] + + | [facility] | [address] [facility] | [place] [address] | | | SERVICES, CORE | PARK [...] LABORATORY | [address] | [place] [address] | | | SERVICES, CORE | TABITHA [...] | [facility] | | [facility] Adult Echocardiography | CARDI OLOGY | | Laboratory [address] [place] [address], | | | [place] [address] Pt Name: | | | RON MCKEON Study Date/Time 03/30/2017 / 10:44:00 | | | AMMRN: [id number] Most recent | | | prior: 03/19/17cc #: [id number] No. previous | | | echos: 3DOB: 1955 61 years Heart | | | Rate: 70 bpmHeight: 68.0 in | | | Blood Pressure: 100/55 mm/HgWeight: 197.0 | | | lb Gender: | | | MBSA: 2.03 m2 Order | | | ID: [id number] [employer] Teacher Assistant: Shahab Sutton | | | RDCSSonographer 2: Karly Gayle Referring Provider: Ariana | | | [facility] Location: 11KModalities Performed: 2D, Color flow, [...] patient's significant recent [place], we activated the senior cytogenetics laboratory director. Patient | | | history [...] Report electronically signed by: | | | [id number] Jordon Neville MD (03/30/2017, 2:04:56 PM) Final | | | | | |Wall Scoring: | | | | | | | | |Report electronically signed by: [id number] Jordon Neville MD (03/30/2017, 2:04:56 PM) | | | | | | | | | | | | Final | | + +------ + + + | Procedure Note | + + | Interface, Cardiology Results - 03/30/2017 2:04 PM [facility] | | [facility] Echocardiography Laboratory [address] [place] [address] | | [place], [place] [address] Pt Name: RON Chaudhary | | MIKE Study Date/Time 03/30/2017 / 10:44:00 AMMRN: [id number] Most | | recent prior: 03/19/17 #: [id number] No. previous echos: 3DOB: | | 1955 61 years Heart Rate: 70 bpmHeight: 68.0 in Blood | | Pressure: 100/55 mm/HgWeight: 197.0 lb Gender: MBSA: | | 2.03 m2 Order ID: [id number] [employer] Teacher Assistant: Shahab Sutton | | RDCSSonographer 2: Karly [...] patient's significant recent [place], we activated the senior cytogenetics laboratory director. Patient history has been | [...] Scoring: Report | | electronically signed by: [id number] Jordon Neville MD (03/30/2017, 2:04:56 PM) Final [...] | | | |Report electronically signed by: [id number] Jordon Neville MD (03/30/2017, 2:04:56 PM) | | | | | | | | Final | + + + + + + + | Performing | Address | City/State/Zipcode | Phone Number | | Organization | | | | + + + + + | [facility] | [address] [facility] | [place], [place] | | | CARDIOLOGY | [address] | [address] | | + + + + + [...] [facility] | [address] | [place], [place] | | | [facility]ARE | [address] | [address] | | | TESTS | | | [...] + + | [facility] | [address] [facility] | [place] [address] | | | SERVICES, CORE | TABITHA [...] [facility] | [address] | [place], [place] | | | JULIANN S[facility] | [address] | [address] | | | TESTS | | | [...] + | [facility] | [address] [facility] | [place], [place] | | | CARDIOLOGY | [address] | [address] | | + + + + + [...] | | | LABORATORY | | | UKRAINIAN | | | SERVICES, | | | [...] [facility] | [address] | [place] [address] | | | SERVICES, CORE | PARK [...] [facility] | [address] | [place] [address] | | | SERVICES, CORE | TABITHA [...] | + + + + + | [facility] | [address] | [place] [address] | | | SERVICES, CORE | [address] | | | + + + + + 12 LEAD ECG (03/30/2017 2:47 AM PDT) + + + + + + | Component | Value | Ref Range | Performed | Pathologist | | | | | At | Signature | + + + + + + | VENTRICULAR | 93 | bpm | [facility] | | | RATE | | [...] DEPT OF | [address] | [place], [place] | | | CARDIOLOGY | [address] | [address] | | + + + + + [...] DEPT OF | [address] | [place], [place] | | | CARDIOLOGY | [address] | [address] | | + + + + + [...] + + | [facility] | [address] | [place] [address] | | | SERVICES, CORE | PARK [...] + + | [facility] | [address] [facility] | [place] [address] | | | SERVICES, CORE | TABITHA [...] | + + + + + | [facility] | [address] | [place] [address] | | | ARASH, ИРИНА | PARK [...] [facility] | [address] | [place] [address] | | | SERVICES, CORE | PARK [...] [facility] | [address] | [place], [place] | | | JULIANN SILVA OF [facility] | [address] | [address] | | | TESTS | | | [...] | + + + + + | [facility] | [address] | [place] [address] | | | SERVICES, CORE | TABITHA [...] [facility] | [address] | [place], [place] | | | CARDIOLOGY | [address] | [address] | | + + + + + [...] - [facility] | [address] | [place], [place] | | | [facility] | [address] | [address] | | | TESTS | | | [...] [facility] | [address] | [place], [place] | | | [facility] | [address] | [address] | | | TESTS | | | [...] + | [facility] | [address] | [place] [address] | | | SERVICES, CORE | TABITHA [...] [facility] | [address] | [place], [place] | | | [facility] PO[facility]ARE | [address] | [address] | | | TESTS | | | [...] [facility] | [address] | [place] [address] | | | SERVICES, CORE | PARK [...] | | | LABORATORY | | | UKRAINIAN | | | SERVICES, | | | [...] | + + + + + | [facility] | [address] | [place] [address] | | | SERVICES, CORE | TABITHA [...] ranges for full anticoagulation: INR for | [facility] | | Venous Thromboembolism (2.0 - 3.0) INR INR | LABORATORY | | for most patients with mech. valves (2.5 - 3.5) INR | ARASH, CORE | + + + + + + + + | Performing | Address | City/State/Zipcode | Phone Number | | Organization | | | | + + + + + | [facility] | [address] [facility] | [place] [address] | | | ARASH, ИРИНА | TABITHA [...] | + + + + + | [facility] | [address] | [place] [address] | | | SERVICES, CORE | TABITHA [...] + + | [facility] | [address] | [place] [address] | | | ARASH, ИРИНА | TABITHA [...] | + + + + + | [facility] | [address] | [place] [address] | | | SERVICES, CORE | TABITHA [...] [facility] | [address] | [place], [place] | | | JULIANN S[facility] | [address] | [address] | | | TESTS | | | [...] [facility] | [address] | [place], [place] | | | JULIANN SILVA OF [facility] | [facility] | [address] | | | TESTS | | | [...] | | | LABORATORY | | | UKRAINIAN | | | SERVICES, | | | [...] | + + + + + | [facility] | [address] | [place] [address] | | | ARASH, ИРИНА | PARK [...] [facility] | [address] | [place] [address] | | | SERVICES, CORE | PARK [...] | | | LABORATORY | | | UKRAINIAN | | | SERVICES, | | | [...] + + | [facility] | [address] [facility] | [place] [address] | | | SERVICES, CORE | TABITHA [...] [facility] | [address] | [place], [place] | | | JULIANN SILVA OF CARE | [address] | [address] | | | TESTS | | | [...] [facility] | [address] | [place], [place] | | | JULIANN SILVA OF CARE | [address] | [address] | | | TESTS | | | [...] + + | [facility] | [address] [facility] | [place] [address] | | | SERVICES, ИРИНА | TABITHA [...] | | | LABORATORY | | | UKRAINIAN | | | SERVICES, | | | [...] + + | [facility] | [address] [facility] | [place] [address] | | | SERVICES, CORE | PARK [...] | + + + + + | [facility] | [address] | [place] [address] | | | SERVICES, CORE | PARK [...] + | [facility] | [address] | [place] [address] | | | SERVICES, CORE | [address] | | | + + + + + MAGNESIUM, PLASMA (03/28/2017 4:13 AM PDT) + +---------+ + + + | Component | Value | Ref Range | Performed | Pathologist | | | | | At | Signature | + +---------+ + + + | MAGNESIUM,P | 2.7 (H) | 1.8 - 2.5 mg/dL | [facility] | | | DENISEMA | | [...] | + + + + + | [facility] | [address] | [place] [address] | | | SERVICES, CORE | PARK [...] R[facility]GERS | [address] | [place], [place] | | | [facility] | [address] | [address] | | | TESTS | | | [...] R[facility] | [address] | [place], [place] | | | [facility] | [address] | [address] | | | TESTS | | | [...] MARIA | [address] | [place], [place] | | | [facility] | [address] | [address] | | | TESTS | | | [...] ANA MARIA | [address] | [place], [place] | | | [facility] | [address] | [address] | | | TESTS | | | [...] [facility] | [address] | [place] [address] | | | SERVICES, CORE | PARK [...] + + | [facility] | [address] | [place] [address] | | | SERVICES, CORE | TABITHA [...] | | | LABORATORY | | | UKRAINIAN | | | SERVICES, | | | [...] [facility] | [address] | [place] [address] | | | SERVICES, CORE | PARK [...] | + + + + + | [facility] | [address] | [place] [address] | | | SERVICES, CORE | PARK [...] + + | [facility] | [address] | [place] [address] | | | SERVICES, CORE | TABITHA [...] - [facility] | [address] | [place], [place] | | | [facility] | [address] | [address] | | | TESTS | | | [...] + + + | [facility] | [address] | [place], [place] | | | [facility] | [address] | [address] | | | TESTS | | | [...] | | | LABORATORY | | | UKRAINIAN | | | SERVICES, | | | [...] + | [facility] | [address] | [place] [address] | | | SERVICES, CORE | TABITHA [...] + + + + | [facility] | [address] | [place], [place] | | | [facility] | [address] | [address] | | | TESTS | | | | + + + + + RAINBOW HOLD TUBE - GREEN TOP (03/26/2017 3:50 AM PDT) + + | Specimen | + + | Blood | + + + + + + + | Performing | Address | City/State/Zipcode | Phone Number | | Organization | | | | + + + + + | [employer] | [address] | [place] [address] | | | SERVICES, CORE | TABITHA [...] + + | [facility] | [address] [facility] | [place] [address] | | | SERVICES, CORE | PARK [...] | + + + + + | [facility] | [address] | [place] [address] | | | ИРИНА ANTOINE | TABITHA [...] | | | LABORATORY | | | UKRAINIAN | | | SERVICES, | | | [...] [facility] | [address] | [place] [address] | | | SERVICES, CORE | TABITHA [...] + + | [facility] | [address] | [place] [address] | | | SERVICES, CORE | TABITHA [...] [facility] | [address] | [place] [address] | | | SERVICES, CORE | PARK [...] | [facility] | | considered for monitoring buttermaker continuous churn glycemic control in patients with: | LABORATORY [...] [facility] | [address] | [place] [address] | | | SERVICES, SPECIAL | PARK [...] + + + + + | [facility] | [address] | [place] [address] | | | SERVICES, CORE | TABITHA [...] [facility] | [address] | [place], [place] | | | [facility] | [address] | [address] | | | TESTS | | | [...] [facility] | [address] | [place], [place] | | | [facility] | [address] | [address] | | | TESTS | | | [...] | + + + + + | [facility] | [address] | [place] [address] | | | SERVICES, CORE | TABITHA [...] | [facility] | | | GRAVITY | Quilcene performed by | | LABORATORY | | [...] + | [facility] | [address] | [place] [address] | | | SERVICES, CORE | TABITHA [...] + | [facility] | [address] | [place] [address] | | | [place] | | | [...] [facility] | [address] | [place], [place] | | | [facility] | [address] | [address] | | | TESTS | | | [...] [facility] | [address] | [place], [place] | | | [facility] | [address] | [address] | | | TESTS | | | [...] + + | [facility] | [address] | [place] [address] | | | ИРИНА ANTOINE | TABITHA [...] | + + + + + | [facility] | [address] | [place] [address] | | | ИРИНА ANTOINE | TABITHA [...] ranges for full anticoagulation: INR for | [facility] | | Venous Thromboembolism (2.0 - 3.0) INR INR | LABORATORY | | for most patients with mech. valves (2.5 - 3.5) INR | ИРИНА ANTOINE | + + + + + + + + | Performing | Address | City/State/Zipcode | Phone Number | | Organization | | | | + + + + + | [facility] | [address] [facility] | [place] [address] | | | ИРИНА ANTOINE | TABITHA [...] [facility] | [address] | [place] [address] | | | SERVICES, CORE | PARK [...] | | | LABORATORY | | | UKRAINIAN | | | SERVICES, | | | [...] | + + + + + | [employer] | [address] [facility] | [place] [address] | | | SERVICES, CORE | PARK [...] | + + + + + | [facility] | [address] [facility] | [place] [address] | | | SERVICES, CORE | PARK [...] [facility] | [address] | [place], [place] | | | [facility] | [address] | [address] | | | TESTS | | | [...] - [facility] | [address] | [place], [place] | | | [facility] | [address] | [address] | | | TESTS | | | [...] R[facility] | [address] | [place], [place] | | | [facility] | [address] | [address] | | | TESTS | | | [...] [facility] | [address] | [place], [place] | | | [facility] | [address] | [address] | | | TESTS | | | [...] [facility] | [address] | [place] [address] | | | SERVICES, CORE | PARK [...] | + + + + + | [employer] | [address] | [place] [address] | | | SERVICES, CORE | TABITHA [...] + + + + | [facility] | [address] | [place], [place] | | | [facility] | [address] | [address] | | | TESTS | | | [...] | | | attempt. Midline lot number [id number]; there was + blood | | | [...] [facility] | [address] | [place], [place] | | | [facility] | [address] | [address] | | | TESTS | | | [...] [facility] | [address] | [place], [place] | | | [facility] | [address] | [address] | | | TESTS | | | [...] + | [facility] | [address] | [place] [address] | | | SERVICES, CORE | TABITHA [...] (H) | 70 - 99 mg/dL | [facility] - | | | GLUCOSE, [...] R[facility] | [address] | [place], [place] | | | [facility] | [facility] | [address] | | | TESTS | | | [...] MARIA | [address] | [place], [place] | | | [facility] | [address] | [address] | | | TESTS | | | [...] MARIA | [address] | [place], [place] | | | [facility] | [facility] | [address] | | | TESTS | | | [...] (H) | 70 - 99 mg/dL | [facility] - | | | GLUCOSE, [...] R[facility] | [address] | [place], [place] | | | [facility] | [facility] | [address] | | | TESTS | | | [...] + | [facility] | [address] | [place] [address] | | | SERVICES, CORE | TABITHA [...] + | [facility] | [address] | [place] [address] | | | SERVICES, CORE | TABITHA [...] [facility] | [address] | [place] [address] | | | SERVICES, CORE | TABITHA [...] | | | LABORATORY | | | UKRAINIAN | | | SERVICES, | | | [...] + + | [facility] | [address] | [place] [address] | | | SERVICES, CORE | TABITHA [...] | + + + + + | [facility] | [address] | [place] [address] | | | ИРИНА ANTOINE | TABITHA [...] ANA MARIA | [address] | [place], [place] | | | [facility] | [address] | [address] | | | TESTS | | | [...] (H) | 70 - 99 mg/dL | [facility] - | | | GLUCOSE, [...] R[facility] | [address] | [place], [place] | | | [facility] | [address] | [address] | | | TESTS | | | [...] [facility] | [address] | [place], [place] | | | [facility] | [address] | [address] | | | TESTS | | | [...] ANA MARIA | [address] | [place], [place] | | | [facility] | [address] | [address] | | | TESTS | | | [...] + | [facility] | [address] | [place] [address] | | | SERVICES, CORE | TABITHA [...] [facility] | [address] | [place], [place] | | | [facility] | [address] | [address] | | | TESTS | | | [...] ANA MARIA | [address] | [place], [place] | | | [facility] | [address] | [address] | | | TESTS | | | [...] | + + + + + | [facility] | [address] [facility] | [place] [address] | | | SERVICES, CORE | TABITHA [...] RODGERS | [address] | [place], [place] | | | [facility] | [facility] | [address] | | | TESTS | | | [...] [facility] | [address] | [place], [place] | | | [facility] | [address] | [address] | | | TESTS | | | [...] (H) | 70 - 99 mg/dL | [facility] - | | | GLUCOSE, [...] [facility] | [address] | [place], [place] | | | [facility] | [address] | [address] | | | TESTS | | | [...] R[facility] | [address] | [place], [place] | | | [facility] | [facility] | [address] | | | TESTS | | | [...] MARIA | [address] | [place], [place] | | | [facility] | [address] | [address] | | | TESTS | | | [...] [facility] | [address] | [place] [address] | | | SERVICES, CORE | PARK [...] | + + + + + | [facility] | [address] | [place] [address] | | | SERVICES, CORE | PARK [...] + + | [facility] | [address] | [place] [address] | | | SERVICES, CORE | TABITHA [...] | | | LABORATORY | | | UKRAINIAN | | | SERVICES, | | | [...] [facility] | [address] | [place] [address] | | | SERVICES, CORE | PARK [...] | + + + + + | [facility] | [address] | [place] [address] | | | SERVICES, CORE | TABITHA [...] (H) | 70 - 99 mg/dL | [facility] - | | | GLUCOSE, | | [...] MARIA | [address] | [place], [place] | | | [facility] | [facility] | [address] | | | TESTS | | | [...] MARIA | [address] | [place], [place] | | | [facility] | [facility] | [address] | | | TESTS | | | [...] (H) | 70 - 99 mg/dL | [facility] - | | | GLUCOSE, [...] [facility] | [address] | [place], [place] | | | [facility] | [address] | [address] | | | TESTS | | | [...] + | Performing | Address | City/State/[facility] | Phone Number | | Organization | | | | + + + + + | [facility] | [address] | [place], [place] | | | [facility] | [facility] | [address] | | | TESTS | | | [...] [facility] | [address] | [place], [place] | | | [facility] | [facility] | [address] | | | TESTS | | | [...] (H) | 70 - 99 mg/dL | [facility] - | | | GLUCOSE, [...] MARIA | [address] | [place], [place] | | | [facility] | [address] | [address] | | | TESTS | | | [...] [facility] | [address] | [place] [address] | | | SERVICES, CORE | PARK [...] - [facility] | [address] | [place], [place] | | | [facility] | [facility] | [address] | | | TESTS | | | [...] [facility] | [address] | [place], [place] | | | [facility] | [address] | [address] | | | TESTS | | | [...] [facility] | [address] | [place], [place] | | | [facility] | [address] | [address] | | | TESTS | | | [...] - [facility] | [address] | [place], [place] | | | [facility] | [address] | [address] | | | TESTS | | | [...] [facility] | [address] | [place], [place] | | | [facility] | [address] | [address] | | | TESTS | | | [...] [facility] | [address] | [place] [address] | | | ARASH, ИРИНА | TABITHA [...] [facility] | [address] | [place], [place] | | | [facility] | [address] | [address] | | | TESTS | | | [...] [facility] | [address] | [place], [place] | | | [facility] | [address] | [address] | | | TESTS | | | [...] [facility] | [address] | [place], [place] | | | [facility] | [address] | [address] | | | TESTS | | | [...] [facility] | [address] | [place], [place] | | | [facility] | [address] | [address] | | | TESTS | | | [...] [facility] | [address] | [place], [place] | | | [facility] | [address] | [address] | | | TESTS | | | [...] [facility] | [address] | [place], [place] | | | H[facility], POINT [facility] CARE | [address] | [address] | | | TESTS | | | [...] [facility] | [address] | [place] [address] | | | SERVICES, | [address] [...] | + + + + + | [facility] | [address] | [place] [address] | | | SERVICES, | [address] [...] + + + + | PRODUCT | [id number] | | [facility] | | | UNIT [...] + + + + | EXPIRATION | [id number] | | [facility] | | | DATE [...] + + + + | BLOOD | [id number] | | [facility] | | | PRODUCT [...] [facility] | [address] | [place] [address] | | | SERVICES, | [address] [...] + + + | [facility] | [address] | [place] [address] | | | SERVICESИРИНА | [address] [...] | + + + + + | [facility] | [address] [facility] | [place] [address] | | | SERVICES, CORE | PARK [...] + | [facility] | [address] | [place] [address] | | | ИРИНА ANTOINE | TABITHA [...] | + + + + + | [facility] | [address] [facility] | [place] [address] | | | SERVICES, CORE | TABITHA [...] [facility] | [address] | [place] [address] | | | SERVICES, CORE | PARK [...] | | | LABORATORY | | | UKRAINIAN | | | SERVICES, | | | [...] | + + + + + | [facility] | [address] | [place] [address] | | | SERVICES, CORE | PARK [...] MARIA | [address] | [place], [place] | | | [facility] | [facility] | [address] | | | TESTS | | | [...] (H) | 70 - 99 mg/dL | [facility] - | | | GLUCOSE, [...] [facility] | [address] | [place], [place] | | | [facility] | [facility] | [address] | | | TESTS | | | [...] MARIA | [address] | [place], [place] | | | [facility] | [address] | [address] | | | TESTS | | | [...] ANA MARIA | [address] | [place], [place] | | | [facility] | [facility] | [address] | | | TESTS | | | [...] (H) | 70 - 99 mg/dL | [facility] - | | | GLUCOSE, [...] [facility] | [address] | [place], [place] | | | [facility] | [facility] | [address] | | | TESTS | | | [...] MAIRA | [address] | [place], [place] | | | [facility] | [address] | [address] | | | TESTS | | | [...] MARIA | [address] | [place], [place] | | | [facility] | [facility] | [address] | | | TESTS | | | [...] (H) | 70 - 99 mg/dL | [facility] - | | | GLUCOSE, [...] [facility] | [address] | [place], [place] | | | [facility] | [address] | [address] | | | TESTS | | | [...] MARIA | [address] | [place], [place] | | | [facility] | [address] | [address] | | | TESTS | | | [...] | | | LABORATORY | | | UKRAINIAN | | | SERVICES, | | | [...] | + + + + + | [facility] | [address] | [place] [address] | | | SERVICES, CORE | PARK [...] [facility] | [address] | [place], [place] | | | [facility] | [address] | [address] | | | TESTS | | | [...] [facility] | [address] | [place], [place] | | | [facility] | [address] | [address] | | | TESTS | | | [...] (H) | 70 - 99 mg/dL | [facility] - | | | GLUCOSE, [...] [facility] | [address] | [place], [place] | | | [facility] | [address] | [address] | | | TESTS | | | [...] on the 1 attempt. Midline lot number [id number]; there was + | | | blood [...] [facility] | [address] | [place], [place] | | | [facility] | [facility] | [address] | | | TESTS | | | [...] R[facility] | [address] | [place], [place] | | | [facility] | [address] | [address] | | | TESTS | | | [...] + + | [facility] | [address] | [place] [address] | | | SERVICES, CORE | PARK [...] + + + | [facility] | [address] | [place], [place] | | | [facility] | [address] | [address] | | | TESTS | | | [...] + + | [facility] | [address] | [place] [address] | | | SERVICES, CORE | PARK [...] | [facility] - ANA MARAI | [address] | [place], [place] | | | [facility] | [address] | [address] | | | TESTS | | | [...] MARIA | [address] | [place], [place] | | | [facility] | [facility] | [address] | | | TESTS | | | [...] (H) | 70 - 99 mg/dL | [facility] - | | | GLUCOSE, [...] [facility] | [address] | [place], [place] | | | [facility] | [address] | [address] | | | TESTS | | | [...] MARIA | [address] | [place], [place] | | | [facility] | [address] | [address] | | | TESTS | | | [...] [facility] | [address] | [place] [address] | | | ИРИНА ANTOINE | TABITHA [...] | + + + + + | [facility] | [address] | [place] [address] | | | SERVICES, CORE | [address] | | | + + + + + MAGNESIUM, PLASMA (03/21/2017 5:34 AM PDT) + +---------+ + + + | Component | Value | Ref Range | Performed | Pathologist | | | | | At | Signature | + +---------+ + + + | MAGNESIUM,P | 2.6 (H) | 1.8 - 2.5 mg/dL | [facility] | | | [facility] | | | [...] + + | [facility] | [address] [facility] | [place] [address] | | | SERVICES, CORE | TABITHA [...] | | | LABORATORY | | | UKRAINIAN | | | SERVICES, | | | [...] + | [facility] | [address] | [place] [address] | | | ИРИНА ANTOINE | TABITHA [...] (H) | 70 - 99 mg/dL | [facility] - | | | GLUCOSE, [...] [facility] | [address] | [place], [place] | | | [facility] | [address] | [address] | | | TESTS | | | [...] MARIA | [address] | [place], [place] | | | [facility] | [address] | [address] | | | TESTS | | | [...] [facility] | [address] | [place], [place] | | | [facility] | [address] | [address] | | | TESTS | | | [...] R[facility] | [address] | [place], [place] | | | [facility] | [address] | [address] | | | TESTS | | | [...] [facility] | [address] | [place], [place] | | | [facility] | [address] | [address] | | | TESTS | | | [...] | + + + + + | [facility] | [address] | [place] [address] | | | SERVICES, CORE | TABITHA [...] (H) | 70 - 99 mg/dL | [facility] - | | | GLUCOSE, [...] [facility] | [address] | [place], [place] | | | [facility] | [address] | [address] | | | TESTS | | | [...] [facility] | [address] | [place], [place] | | | [facility] | [address] | [address] | | | TESTS | | | [...] [facility] | [address] | [place], [place] | | | [facility] | [facility] | [address] | | | TESTS | | | [...] R[facility] | [address] | [place], [place] | | | [facility] | [address] | [address] | | | TESTS | | | [...] [facility] | [address] | [place], [place] | | | H[facility], PO[facility] | [address] | [address] | | | TESTS | | | [...] [facility] | [address] | [place], [place] | | | [facility] | [facility] | [address] | | | TESTS | | | [...] [facility] | [address] | [place], [place] | | | JULIANN SILVA OF CARE | [address] | [address] | | | TESTS | | | [...] + | [facility] | [address] | [place] [address] | | | SERVICES, CORE | TABITHA [...] (H) | 70 - 99 mg/dL | [facility] - | | | GLUCOSE, [...] R[facility] | [address] | [place], [place] | | | JULIANN SILVA OF [place] | [facility] | [address] | | | TESTS | | | [...] MARIA | [address] | [place], [place] | | | JULIANN SILVA OF CARE | [address] | [address] | | | TESTS | | | [...] | + + + + + | [facility] | [address] | [place] [address] | | | ИРИНА ANTOINE | TABITHA [...] R[facility] | [address] | [place], [place] | | | JULIANN SILVA OF [facility] | [address] | [address] | | | TESTS | | | [...] the tip in the proximal gastric body. [place] [facility] | | | catheter in place. [...] Note | + + | Service Account, [employer] In Interface - 03/20/2017 2:38 PM PDT EXAM: Supine | | frontal view of the abdomen. HISTORY: Study to evaluate feeding tube | | positionCOMPARISON: Chest Xray dated 03/19/2017.FINDINGS AND IMPRESSION:Feeding tube is | | seen in the stomach with the tip in the proximal gastric body.[place] [facility] catheter in | | place.Limited evaluation of the lungs as technique was tailored for feeding tube.I have | | personally reviewed the images and, if necessary, edited the report. I agree with the | | report as now presented. | | | |Feeding tube is seen in the stomach with the tip in the proximal gastric body. | |[place] [facility] catheter in place. | |Limited evaluation [...] | | + +---------+ + + | [facility] | | | | [...] [place] | [address] | [place], [place] | | | JULIANN SILVA OF CARE | [address] | [address] | | | TESTS | | | [...] RODGERS | [address] | [place], [place] | | | JULIANN SILVA OF CARE | [address] | [address] | | | TESTS | | | [...] + + | [facility] | [address] | [place], [place] | | | JULIANN SILVA OF CARE | [address] | [address] | | | TESTS | | | [...] [place] | [address] | [place], [place] | | | JULIANN SILVA OF [place] | [address] | [address] | | | TESTS | | | [...] RODGERS | [address] | [place], [place] | | | RICARDO POINT OF CARE | [address] | [address] | | | TESTS | | | [...] + + | [facility] | [address] [facility] | [place] [address] | | | ARASH, ИРИНА | [address] | | | + + + [...] + + | [facility] | [address] [facility] | [place] [address] | | | SERVICES, CORE | PARK [...] | + + + + + | [facility] | [address] | [place] [address] | | | SERVICES, CORE | TABITHA [...] [facility] | [address] | [place], [place] | | | JULIANN SILVA OF CARE | [address] | [address] | | | TESTS | | | [...] Note | + + | Service Account, [employer] In Interface - 03/20/2017 10:12 AM PDT [...] [facility] | [address] | [place], [place] | | | CHRISTIE SILVA [facility] | [facility] | [address] | | | TESTS | | | [...] [facility] | [address] | [place], [place] | | | JULIANN SILVA OF [place] | [facility] | [address] | | | TESTS | | | [...] R[facility] | [address] | [place], [place] | | | [facility] POINT OF CARE | [address] | [address] | | | TESTS | | | [...] [facility] | [address] | [place], [place] | | | JULIANN SILVA OF [facility] | [facility] | [address] | | | TESTS | | | [...] [facility] | [address] | [place] [address] | | | SERVICES, CORE | TABITHA [...] | + + + + + | [facility] | [address] | [place] [address] | | | SERVICES, CORE | [address] | | | + + + + + MAGNESIUM, PLASMA (03/20/2017 1:00 AM PDT) + +---------+ + + + | Component | Value | Ref Range | Performed | Pathologist | | | | | At | Signature | + +---------+ + + + | MAGNESIUM,P | 2.7 (H) | 1.8 - 2.5 mg/dL | [facility] | | | LASMA | | [...] | + + + + + | [facility] | [address] | [place] [address] | | | SERVICES, CORE | PARK [...] + + | [facility] | [address] | [place] [address] | | | SERVICES, CORE | TABITHA [...] | | | LABORATORY | | | UKRAINIAN | | | SERVICES, | | | [...] + + | [facility] | [address] [facility] | [place] [address] | | | ARASH, ИРИНА | TABITHA [...] [facility] | [address] | [place], [place] | | | HILL, POINT OF CARE | [address] | [address] | | | TESTS | | | [...] [facility] | [address] | [place], [place] | | | [facility]UL[facility]ANN [facility] | [address] | [address] | | | TESTS | | | [...] + | [facility] | [address] | [place] [address] | | | SERVICES, CORE | TABITHA [...] [facility] | [address] | [place], [place] | | | JULIANN SILVA OF CARE | [address] | [address] | | | TESTS | | | [...] EULOGIO R[facility] | [address] | [place], [place] | | | RCIARDO [facility] | [address] | [address] | | | TESTS | | | [...] | + + + + + | [facility] | [address] | [place] [address] | | | SERVICES, CORE | TABITHA [...] (H) | 70 - 99 mg/dL | [facility] - | | | GLUCOSE, [...] RODGERS | [address] | [place], [place] | | | JULIANN S[facility]VA [facility] | [facility] | [address] | | | TESTS | | | [...] | + + + + + | [facility] | [address] | [place] [address] | | | SERVICES, CORE | TABITHA [...] (H) | 70 - 99 mg/dL | [facility] - | | | GLUCOSE, | | | [facility] | | | POC | | | JULIANN SILVA | | | | | | OF CARE | | | | | | TESTS | | + +---------+ + + + + + | Specimen | + + | | + + + + + + + | Performing | Address | City/State[facility] | Phone Number | | Organization | | | | + + + + + | [facility] | [address] | [place], [place] | | | JULIANN [facility]VA [facility] | [facility] | [address] | | | TESTS | | | [...] | + + + + + | [facility] | [address] | [place] [address] | | | SERVICES, CORE | PARK [...] | + + + + + | [facility] | [address] | [place] [address] | | | ИРИНА ANTOINE | TABITHA [...] (H) | 70 - 99 mg/dL | [facility] - | | | GLUCOSE, [...] MARIA | [address] | [place], [place] | | | RICARDO POINT OF CARE | [address] | [address] | | | TESTS | | | [...] | 118 (L) | >300 mmHg | [facility] | | | RATIO | | | [...] | + + + + + | [facility] | [address] | [place] [address] | | | ARASH, ИРИНА | TABITHA [...] [facility] | [address] | [place] [address] | | | SERVICES, CORE | PARK [...] [facility] | [address] | [place] [address] | | | ARASH, ИРИНА | PARK [...] | + + + + + | [facility] | [address] | [place] [address] | | | SERVICES, CORE | TABITHA [...] (H) | 70 - 99 mg/dL | [facility] - | | | GLUCOSE, [...] RODGERS | [address] | [place], [place] | | | J[facility] [place] | [address] | [address] | | | TESTS | | | [...] [facility] | [address] | [place], [place] | | | R[facility]ARDO POINT OF CARE | [address] | [address] | | | TESTS | | | [...] ANA MARIA | [address] | [place], [place] | | | [facility]O [facility] | [address] | [address] | | | TESTS | | | [...] [facility] | [address] | [place] [address] | | | SERVICES, CORE | TABITHA [...] [facility] | [address] | [place], [place] | | | CARDIOLOGY | [address] | [address] | | + + + + + [...] [facility] | [address] | [place], [place] | | | JULIANN SILVA OF CARE | [address] | [address] | | | TESTS | | | | + + + + + UX-MW-JQW-HB,POC RT (03/19/2017 1:04 PM PDT) + + [...] [facility] | [address] | [place], [place] | | | JULIANN SILVA OF CARE | [address] | [address] | | | TESTS | | | [...] + + + + | PRODUCT | [id number] | | [facility] | | | UNIT [...] + + + + | EXPIRATION | [id number] | | [facility] | | | DATE [...] + + + + | BLOOD | [id number] | | [facility] | | | PRODUCT [...] [facility] | [address] | [place] [address] | | | SERVICES, | [address] [...] + + + + | PRODUCT | [id number] | | [facility] | | | UNIT [...] + + + + | EXPIRATION | [id number] | | [facility] | | | DATE [...] + + + + | BLOOD | [id number] | | [facility] | | | PRODUCT [...] [facility] | [address] | [place] [address] | | | SERVICES, | [address] [...] + + + + | PRODUCT | [id number] | | [facility] | | | UNIT [...] + + + + | EXPIRATION | [id number] | | [facility] | | | DATE [...] + + + + | BLOOD | [id number] | | [facility] | | | PRODUCT [...] LABORATORY | [address] | [place] [address] | | | SERVICES, | [address] [...] + + + + | PRODUCT | [id number] | | [facility] | | | UNIT [...] + + + + | EXPIRATION | [id number] | | [facility] | | | DATE [...] + + + + | BLOOD | [id number] | | [facility] | | | PRODUCT [...] [facility] | [address] | [place] [address] | | | SERVICES, | [address] [...] + + | [facility] | [address] [facility] | [place] [address] | | | SERVICES, CORE | TABITHA [...] | | | LABORATORY | | | UKRAINIAN | | | SERVICES, | | | [...] [facility] | [address] | [place] [address] | | | ARASH, ИРИНА | PARK [...] [facility] | [address] | [place] [address] | | | SERVICES, CORE | PARK [...] + + | [facility] | [address] | [place] [address] | | | SERVICES, CORE | TABITHA [...] GISELL Preston PhD [place] [address] [id number] [place], | | | [place] [address] | | + + + ABG-FULL ABL, POC (03/19/2017 12:14 PM PDT) + + + + + + | Component | Value | Ref Range | Performed | Pathologist | | | | | At | Signature | + + + + + + | PH | 7.42 | 7.37 - 7.44 | [facility] - | | | ARTERIAL, | [...] - [facility] | [address] | [place], [place] | | | JULIANN SILVA OF CARE | [address] | [address] | | | TESTS | | | [...] ANA [facility] | [address] | [place], [place] | | | JULIANN SILVA OF CARE | [facility] | [address] | | | TESTS | | | | + + + + + KS-WN-FVR-HB,POC RT (03/19/2017 10:24 AM PDT) + + [...] - [facility] | [address] | [place], [place] | | | JULIANN SILVA [facility] CARE | [address] | [address] | | | TESTS | | | [...] R[facility] | [address] | [place], [place] | | | R[facility]O POINT OF CARE | [address] | [address] | | | TESTS | | | | + + + + + DQ-PE-CVC-HB,POC RT (03/19/2017 10:06 AM PDT) + + [...] + + + | [facility] | [address] | [place], [place] | | | RICARDO POINT OF CARE | [address] | [address] | | | TESTS | | | | + + + + + BF-AS-FEI-KARY ISIDRO RT (03/19/2017 9:51 AM PDT) + [...] MARIA | [address] | [place], [place] | | | J[facility]ANN [facility] | [address] | [address] | | | TESTS | | | [...] + + + + | PRODUCT | [id number] | | [facility] | | | UNIT [...] + + + + | EXPIRATION | [id number] | | [facility] | | | DATE [...] + + + + | BLOOD | [id number] | | [facility] | | | PRODUCT [...] + | [facility] | [address] | [place] [address] | | | SERVICES, | [address] [...] + + + + | PRODUCT | [id number] | | [facility] | | | UNIT [...] + + + + | EXPIRATION | [id number] | | [facility] | | | DATE [...] + + + + | BLOOD | [id number] | | [facility] | | | PRODUCT [...] + | [facility] | [address] | [place] [address] | | | SERVICES, | [address] [...] + + + + | PRODUCT | [id number] | | [facility] | | | UNIT [...] + + + + | EXPIRATION | [id number] | | [facility] | | | DATE [...] + + + + | BLOOD | [id number] | | [facility] | | | PRODUCT [...] + + | [facility] | [address] | [place] [address] | | | SERVICES, | [address] [...] + + + + | PRODUCT | [id number] | | [facility] | | | UNIT [...] + + + + | EXPIRATION | [id number] | | [facility] | | | DATE [...] + + + + | BLOOD | [id number] | | [facility] | | | PRODUCT [...] [facility] | [address] | [place] [address] | | | SERVICES, | [address] [...] Endotracheal | RADIOLOGY VOICE | | tube, [place] catheter and enteric tube remain in place. 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 Evaluate cannula placement.COMPARISON: YesterdayFINDINGS: | | Endotracheal tube, [place] catheter and enteric tube remain in place. [...] - MARRANDIAM | [address] | [place], [place] | | | JULIANN SILVA OF CARE | [address] | [address] | | | TESTS | | | [...] RODGERS | [address] | [place], [place] | | | JULIANN SILVA OF CARE | [address] | [address] | | | TESTS | | | [...] [facility] | [address] | [place] [address] | | | SERVICES, CORE | PARK [...] - MARRANDIAM | [address] | [place], [place] | | | RICARDO POINT OF CARE | [address] | [address] | | | TESTS | | | [...] (H) | 70 - 99 mg/dL | [facility] - | | | GLUCOSE, [...] + + + | E[facility] | [address] | [place], [place] | | | [facility] | [address] | [address] | | | TESTS | | | [...] [facility] | [address] | [place], [place] | | | JULIANN SILVA OF [place] | [facility] | [address] | | | TESTS | | | [...] ANA MAR[facility] | [address] | [place], [place] | | | RICARDO POINT OF CARE | [address] | [address] | | | TESTS | | | [...] | + + + + + | [facility] | [address] | [place] [address] | | | SERVICES, CORE | TABITHA [...] (H) | 70 - 99 mg/dL | [facility] - | | | GLUCOSE, [...] RODGERS | [address] | [place], [place] | | | JULIANN SILVA [facility] [place] | [facility] | [address] | | | TESTS | | | [...] [facility] | [address] | [place], [place] | | | JULIANN SILVA OF CARE | [address] | [address] | | | TESTS | | | [...] (H) | 70 - 99 mg/dL | [facility] - | | | GLUCOSE, [...] MARIA | [address] | [place], [place] | | | RICARDO POINT OF CARE | [address] | [address] | | | TESTS | | | [...] | + + + + + | [facility] | [address] [facility] | [place] [address] | | | ARASH, ИРИНА | TABITHA [...] EULOGIO RODGERS | [address] | [place], [place] | | | [facility] | [facility] | [address] | | | TESTS | | | [...] [facility] | [address] | [place] [address] | | | SERVICES, CORE | PARK [...] | + + + + + | [facility] | [address] | [place] [address] | | | SERVICES, CORE | [address] | | | + + + + + MAGNESIUM, PLASMA (03/19/2017 1:11 AM PDT) + +---------+ + + + | Component | Value | Ref Range | Performed | Pathologist | | | | | At | Signature | + +---------+ + + + | MAGNESIUM,P | 2.6 (H) | 1.8 - 2.5 mg/dL | [facility] | | | [facility] | | | [...] | + + + + + | [facility] | [address] | [place] [address] | | | SERVICES, CORE | TABITHA [...] + | [facility] | [address] | [place] [address] | | | SERVICES, CORE | TABITHA [...] [facility] | [address] | [place] [address] | | | SERVICES, CORE | PARK [...] [facility] | [address] | [place] [address] | | | ARASH, ИРИНА | TABITHA [...] | | | LABORATORY | | | UKRAINIAN | | | SERVICES, | | | [...] + + | [facility] | [address] [facility] | [place] [address] | | | SERVICES, CORE | TABITHA [...] [facility] | [address] | [place] [address] | | | SERVICES, CORE | PARK [...] | + + + + + | [facility] | [address] [facility] | [place] [address] | | | SERVICES, CORE | PARK [...] (H) | 70 - 99 mg/dL | [facility] - | | | GLUCOSE, [...] RODGERS | [address] | [place], [place] | | | JULIANN SILVA OF [place] | [facility] | [address] | | | TESTS | | | [...] | + + + + + | [facility] | [address] | [place] [address] | | | SERVICES, CORE | TABITHA [...] (H) | 70 - 99 mg/dL | [facility] - | | | GLUCOSE, | | [...] RODG[facility] | [address] | [place], [place] | | | R[facility]O POINT OF CARE | [address] | [address] | | | TESTS | | | [...] [facility] | [address] | [place], [place] | | | R[facility] POINT OF CARE | [address] | [address] | | | TESTS | | | [...] | + + + + + | [facility] | [address] | [place] [address] | | | SERVICES, CORE | TABITHA [...] (H) | 70 - 99 mg/dL | [facility] - | | | GLUCOSE, [...] RODGERS | [address] | [place], [place] | | | [facility]ANN [facility] | [address] | [address] | | | TESTS | | | [...] [facility] | [address] | [place], [place] | | | JUL[facility]ANN SILVA OF CARE | [address] | [address] | | | TESTS | | | [...] ANA MARIA | [address] | [place], [place] | | | R[facility] POINT OF CARE | [address] | [address] | | | TESTS | | | [...] [facility] | [address] | [place] [address] | | | SERVICES, CORE | PARK [...] | + + + + + | [facility] | [address] | [place] [address] | | | SERVICES, CORE | TABITHA [...] (H) | 70 - 99 mg/dL | [facility] - | | | GLUCOSE, [...] RODGERS | [address] | [place], [place] | | | [facility] | [address] | [address] | | | TESTS | | | [...] | + + + + + | [employer] | [address] | [place] [address] | | | SERVICES, ИРИНА | TABITHA [...] MARIA | [address] | [place], [place] | | | JULIANN SILVA OF CARE | [facility] | [address] | | | TESTS | | | [...] (H) | 70 - 99 mg/dL | [facility] - | | | GLUCOSE, [...] RODGERS | [address] | [place], [place] | | | JULIANN SILVA OF CARE | [facility] | [address] | | | TESTS | | | [...] | + + + + + | [facility] | [address] | [place] [address] | | | SERVICES, CORE | PARK [...] + + | [facility] | [address] | [place] [address] | | | ARASH, ИРИНА | TABITHA [...] [facility] | [address] | [place], [place] | | | R[facility]O POINT OF CARE | [address] | [address] | | | TESTS | | | [...] ANA MARIA | [address] | [place], [place] | | | [place] [facility] | [address] | [address] | | | TESTS | | | [...] [facility] | [address] | [place] [address] | | | SERVICES, CORE | PARK [...] | + + + + + | [facility] | [address] | [place] [address] | | | SERVICES, CORE | PARK [...] [facility] | [address] | [place] [address] | | | SERVICES, CORE | PARK [...] + + | [facility] | [address] | [place] [address] | | | SERVICES, CORE | TABITHA [...] | | | LABORATORY | | | UKRAINIAN | | | SERVICES, | | | [...] [facility] | [address] | [place] [address] | | | SERVICES, CORE | TABITHA [...] | + + + + + | [facility] | [address] | [place] [address] | | | SERVICES, CORE | TABITHA [...] | + + + + + | [facility] | [address] | [place] [address] | | | ARASH, ИРИНА | TABITHA [...] [facility] | [address] | [place] [address] | | | SERVICES, CORE | PARK [...] [facility] | [address] | [place], [place] | | | [facility] POINT OF CARE | [address] | [address] | | | TESTS | | | [...] RODGERS | [address] | [place], [place] | | | [facility] POINT OF CARE | [address] | [address] | | | TESTS | | | [...] [facility] | [address] | [place] [address] | | | SERVICES, CORE | PARK [...] MARIA | [address] | [place], [place] | | | RIC[facility]O [facility] | [address] | [address] | | | TESTS | | | [...] + | [facility] | [address] | [place] [address] | | | SERVICES, CORE | PARK [...] | + + + + + | [facility] | [address] | [place] [address] | | | SERVICES, CORE | PARK [...] | + + + + + | [facility] | [address] | [place] [address] | | | [facility] | | | | + + + [...] RODGERS | [address] | [place], [place] | | | R[facility]O POINT OF CARE | [address] | [address] | | | TESTS | | | [...] RODGERS | [address] | [place], [place] | | | [facility] | [address] | [address] | | | TESTS | | | [...] [facility] | [address] | [place] [address] | | | SERVICES, ИРИНА | TABITHA [...] [facility] | [address] | [place] [address] | | | ARASH, ИРИНА | TABITHA [...] (H) | 70 - 99 mg/dL | [facility] - | | | GLUCOSE, [...] [facility] | [address] | [place], [place] | | | JUL[facility]ANN [facility] | [facility] | [address] | | | TESTS | | | [...] RODGERS | [address] | [place], [place] | | | [facility] | [address] | [address] | | | TESTS | | | [...] jefferson. Enteric tube tip in the stomach. 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 Evaluate cannula placement.COMPARISON: YesterdayFINDINGS: | | Endotracheal tube tip is 2.5 cm above the jefferson. Enteric tube tip in the stomach. | | [place] catheter tip projects in the main pulmonary [...] [facility] | [address] | [place], [place] | | | R[facility]O POINT OF CARE | [address] | [address] | | | TESTS | | | [...] MARIA | [address] | [place], [place] | | | RICARDO [facility] | [facility] | [address] | | | TESTS | | | [...] + | [facility] | [address] | [place] [address] | | | SERVICES, CORE | TABITHA [...] R[facility] | [address] | [place], [place] | | | [facility] | [address] | [address] | | | TESTS | | | [...] ANA MARIA | [address] | [place], [place] | | | [facility] | [address] | [address] | | | TESTS | | | [...] [facility] | [address] | [place] [address] | | | SERVICES, | [address] [...] [facility] | [address] | [place] [address] | | | SERVICES, | [address] [...] + + + + | PRODUCT | [id number] | | [facility] | | | UNIT [...] + + + + | EXPIRATION | [id number] | | [facility] | | | DATE [...] + + + + | BLOOD | [id number] | | [facility] | | | PRODUCT [...] [facility] | [address] | [place] [address] | | | SERVICES, | [address] [...] MARIA | [address] | [place], [place] | | | J[facility]ANN S[facility]ARE | [address] | [address] | | | TESTS | | | [...] [facility] | [address] | [place] [address] | | | SERVICES, CORE | TABITHA [...] + + | [facility] | [address] [facility] | [place] [address] | | | SERVICES, ИРИНА | TABITH[address] [...] | + + + + + | [facility] | [address] | [place] [address] | | | SERVICES, CORE | PARK [...] [facility] | [address] | [place] [address] | | | SERVICES, CORE | PARK [...] | | | LABORATORY | | | UKRAINIAN | | | SERVICES, | | | [...] + + | [facility] | [address] | [place] [address] | | | SERVICES, ИРИНА | TABITH[address] [...] | + + + + + | [facility] | [address] | [place] [address] | | | SERVICES, CORE | PARK [...] + | [facility] | [address] | [place] [address] | | | SERVICES, CORE | TABITHA [...] [facility] | [address] | [place] [address] | | | SERVICES, CORE | TABITHA [...] Zoe [facility] | [address] | [place], [place] | | | [facility] | [facility] | [address] | | | TESTS | | | [...] [facility] | [address] | [place] [address] | | | SERVICES, CORE | TABITHA [...] [facility] | [address] | [place] [address] | | | ИРИНА ANTOINE | TABITHA [...] ANA MAR[facility] | [address] | [place], [place] | | | J[facility]ANN SIL[facility] CARE | [facility] | [address] | | | TESTS | | | [...] (H) | 60 - 99 mg/dL | [facility] - | | | GLUCOSE, [...] RODGERS | [address] | [place], [place] | | | JLUIANN SILVA OF CARE | [facility] | [address] | | | TESTS | | | [...] MARIA | [address] | [place], [place] | | | [facility] | [address] | [address] | | | TESTS | | | [...] [facility] | [address] | [place], [place] | | | [facility] CARE | [address] | [address] | | | TESTS | | | [...] | + + + + + | [facility] | [address] | [place] [address] | | | SERVICES, CORE | TABITHA [...] (H) | 60 - 99 mg/dL | [facility] - | | | GLUCOSE, [...] RODGERS | [address] | [place], [place] | | | [facility] | [address] | [address] | | | TESTS | | | [...] [facility] | [address] | [place] [address] | | | SERVICES, ИРИНА | PARK [...] [facility] | [address] | [place] [address] | | | ИРИНА ANTOINE | PARK [...] [facility] | [address] | [place] [address] | | | SERVICES, CORE | PARK [...] + | [facility] | [address] | [place] [address] | | | SERVICES, CORE [...] | + + + + + | [facility] | [address] | [place] [address] | | | SERVICES, CORE | PARK [...] MARQUAM | [address] | [place], [place] | | | JULIANN SILVA OF CARE | [facility] | [address] | | | TESTS | | | [...] (H) | 60 - 99 mg/dL | [facility] - | | | GLUCOSE, [...] MARIA | [address] | [place], [place] | | | JULIANN SILVA OF [facility] | [address] | [address] | | | TESTS | | | [...] | 58 (L) | >300 mmHg | [facility] | | | RATIO | | [...] | + + + + + | [facility] | [address] | [place] [address] | | | SERVICES, CORE | PARK [...] MARQUAM | [address] | [place], [place] | | | JULIANN SILVA OF CARE | [facility] | [address] | | | TESTS | | | [...] MARIA | [address] | [place], [place] | | | JULIANN SILVA OF [facility] | [address] | [address] | | | TESTS | | | [...] + + + + | PRODUCT | [id number] | | [facility] | | | UNIT [...] + + + + | EXPIRATION | [id number] | | [facility] | | | DATE [...] + + + + | BLOOD | [id number] | | [facility] | | | PRODUCT [...] | + + + + + | [facility] | [address] | [place] [address] | | | SERVICES, | [address] [...] + + + + | PRODUCT | [id number] | | [facility] | | | UNIT [...] + + + + | EXPIRATION | [id number] | | [facility] | | | DATE [...] + + + + | BLOOD | [id number] | | [facility] | | | PRODUCT [...] | + + + + + | [employer] | [address] [facility] | [place] [address] | | | SERVICES, | [address] [...] MARQUAM | [address] | [place], [place] | | | JULIANN SILVA OF CARE | [address] | [address] | | | TESTS | | | [...] [facility] | [address] | [place] [address] | | | SERVICES, CORE | PARK [...] [facility] | [address] | [place] [address] | | | SERVICES, CORE | PARK [...] [facility] | [address] | [place] [address] | | | SERVICES, CORE | PARK [...] [facility] | [address] | [place] [address] | | | SERVICES, CORE | TABITHA [...] | | | LABORATORY | | | UKRA[place] | | | SERVICES, | | | [...] + + | [facility] | [address] | [place] [address] | | | SERVICES, CORE | PARK [...] [facility] | [address] | [place] [address] | | | SERVICES, CORE | TABITHA [...] [facility] | [address] | [place] [address] | | | SERVICES, CORE | TABITHA [...] | 115 (L) | >300 mmHg | [facility] | | | RATIO | | | [...] | + + + + + | [facility] | [address] | [place] [address] | | | ARASH, ИРИНА | PARK [...] MARQUAM | [address] | [place], [place] | | | [facility] | [address] | [address] | | | TESTS | | | [...] | + + + + + | [facility] | [address] | [place] [address] | | | SERVICES, CORE | TABITHA [...] (H) | 60 - 99 mg/dL | [facility] - | | | GLUCOSE, | | [...] RODGERS | [address] | [place], [place] | | | [facility] | [address] | [address] | | | TESTS | | | [...] Note | + + | Service Account, [employer] ([employer]) In Interface - 03/17/2017 6:18 PM PDT [...] Note | + + | Service Account, [employer] ([employer]) In Interface - 03/17/2017 6:17 PM PDT [...] RODGERS | [address] | [place], [place] | | | [facility] | [address] | [address] | | | TESTS | | | [...] | + + + + + | [facility] | [address] | [place] [address] | | | SERVICES, CORE | TABITHA [...] | EJECTION | 22.5 | % | [facility] DEPT | | | FRACTION | [...] [facility] | [facility] DE PT OF | | [facility] Adult Echocardiography | CARDIOLOG Y | | [place] [address] [facility] | | | [place] [address] Pt Name: | | | RON MCKEON Study Date/Time 03/17/2017 / 10:30:26 | | | AMMRN: [id number] Most recent | | | prior: 03/15/2017Acc #: [id number] No. | | | previous echos: 1DOB: 1955 61 years Heart | | | Rate: 139 bpmHeight: 69.0 | | | in Blood Pressure: 133/83 | | | mm/HgWeight: 258.0 | | | lb Gender: | | | MBSA: 2.30 m2 Order | | | ID: [id number] [facility] [employer] Teacher Assistant: Mauri Domingo [facility] | | | Referring Provider: Mellisa Rubalcava [facility] | | | Performed: Limited 2D, Color Doppler and Spectral Doppler | | | Limited.Study Quality: Fair.Exam Indication: Heart failure; ECMO; s/p | | | STEMIHistory: 61 year old male with a past medical history significant | | | for hypertension, hyperlipidemia, ongoing tobacco use and | | | pre-diabetes who is transferred to [facility] with cardiogenic shock in the [...] | | | Report electronically signed by: [id number] Jen Ovalle MD, PhD | | | (03/17/2017, 1:53:40 PM) Final | | | | | |Report electronically signed by: [id number] Jen Ovalle MD, PhD (03/17/2017, | | |1:53:40 PM) | | | | | | | | | | | | Final | | + + -------+ + + | Procedure Note | + + | Interface, Cardiology Results - 03/17/2017 1:53 PM [facility] | | [facility] Echocardiography Laboratory [address] [place] [address] | | [place], [place] [address] Pt Name: RON MCKEON Study Date/Time 03/17/2017 / 10:30:26 AMMRN: [id number] Most | | recent prior: 03/15/2017Acc #: [id number] No. previous echos: 1DOB: | | 1955 61 years Heart Rate: 139 bpmHeight: 69.0 in Blood | | Pressure: 133/83 mm/HgWeight: 258.0 lb Gender: MBSA: | | 2.30 m2 Order ID: [id number] [facility] [employer] Teacher Assistant: Mauri Domingo | | RDCSReferring Provider: Mellisa Rubalcava Location: [facility] Performed: | | Limited 2D, Color Doppler and Spectral Doppler Limited.Study Quality: Fair.Exam | | Indication: Heart failure; ECMO; s/p STEMIHistory: 61 year old male with a past medical | | history significant for hypertension, hyperlipidemia, ongoing tobacco use and | | pre-diabetes who is transferred to [facility] with cardiogenic shock in the [...] | | Scoring: Report electronically signed by: [id number] Jen Ovalle MD, PhD (03/17/2017, | | [...] | | | |Report electronically signed by: [id number] Jen Ovalle MD, PhD (03/17/2017, | |1:53:40 PM) | | | | | | | | Final | + + + + + + + | Performing | Address | City/State/Zipcode | Phone Number | | Organization | | | | + + + + + | [facility] | [address] | [place], [place] | | | CARDIOLOGY | [address] | [address] | | + + + + + [...] [facility] | [address] | [place], [place] | | | [facility] | [address] | [address] | | | TESTS | | | [...] [facility] | [address] | [place], [place] | | | [facility] | [address] | [address] | | | TESTS | | | [...] [facility] | [address] | [place] [address] | | | SERVICES, CORE | PARK [...] [facility] | [address] | [place] [address] | | | SERVICES, CORE | PARK [...] + + | [facility] | [address] | [place] [address] | | | SERVICES, ИРИНА | TABITHA [...] [facility] | [address] | [place], [place] | | | [facility] | [facility] | [address] | | | TESTS | | | [...] - [facility] | [address] | [place], [place] | | | [facility] | [address] | [address] | | | TESTS | | | [...] + + + | [facility] | [address] | [place], [place] | | | [facility] | [address] | [address] | | | TESTS | | | [...] [facility] | [address] | [place] [address] | | | SERVICES, CORE | TABITHA [...] | + + + + + | [facility] | [address] | [place] [address] | | | SERVICES, CORE | TABITHA [...] | + + | Service Account, Arely Rimini Street In Interface - 03/17/2017 9:44 AM PDT [...] BLU[facility] | [address] | [place], [place] | | | [facility] CARE | [address] | [address] | | | TESTS | | | [...] [facility] | [address] | [place] [address] | | | SERVICESИРИНА | [address] [...] | | | LABORATORY | | | UKRAINIAN | | | SERVICES, | | | [...] + | [facility] | [address] | [place] [address] | | | SERVICES, ИРИНА | TABITHA [...] | + + + + + | [facility] | [address] | [place] [id number] | | | ИРИНА ANTOINE | TABITHA [...] [facility] | [address] | [place], [place] | | | [facility]ARE | [address] | [address] | | | TESTS | | | [...] | + + + + + | [facility] | [address] | [place] [address] | | | SERVICES, CORE | PARK [...] + + | [facility] | [address] [facility] | [place] [address] | | | SERVICES, CORE | TABITHA [...] + + | [facility] | [address] | [place] [address] | | | SERVICES, CORE | TABITHA [...] | + + + + + | [facility] | [address] | [place] [address] | | | ARASH, ИРИНА | PARK [...] [facility] | [address] | [place] [address] | | | SERVICES, CORE | PARK [...] [facility] | [address] | [place] [address] | | | SERVICES, CORE | PARK [...] [facility] | [address] | [place] [address] | | | SERVICES, CORE | PARK [...] + + | [facility] | [address] | [place] [address] | | | SERVICES, CORE | TABITHA [...] | + + + + + | [facility] | [address] | [place] [address] | | | SERVICES, CORE | PARK [...] [facility] | [address] | [place] [address] | | | SERVICES, CORE | TABITHA [...] DEPT OF | [address] | [place], [place] | | | CARDIOLOGY | [address] | [address] | | + + + + + BN-SL-JTZ-HB,POC RT (03/17/2017 12:44 AM PDT) + + [...] [facility] | [address] | [place], [place] | | | [facility] | [address] | [address] | | | TESTS | | | [...] MARRANDIAM | [address] | [place], [place] | | | [facility] CARE | [facility] | [address] | | | TESTS | | | [...] BLUAM | [address] | [place], [place] | | | [facility]ARE | [address] | [address] | | | TESTS | | | [...] + | [facility] | [address] | [place] [address] | | | SERVICES, ИРИНА | TABITHA [...] [facility] | [address] | [place], [place] | | | [facility] | [address] | [address] | | | TESTS | | | [...] ANA MARIA | [address] | [place], [place] | | | [facility] | [address] | [address] | | | TESTS | | | [...] + | [facility] | [address] | [place] [address] | | | SERVICES, CORE | TABITHA [...] MARIA | [address] | [place], [place] | | | JULIANN SILVA OF [facility] | [address] | [address] | | | TESTS | | | [...] | + + + + + | [facility] | [address] | [place] [address] | | | ИРИНА ANTOINE | TABITHA [...] (H) | 60 - 99 mg/dL | [facility] - | | | GLUCOSE, [...] - ANA MARIA | [address] | [place], [place] | | | [facility] | [address] | [address] | | | TESTS | | | [...] MARIA | [address] | [place], [place] | | | JULIANN SILVA OF [facility] | [facility] | [address] | | | TESTS | | | [...] | pause verifies correct patient, procedure, equipment, support services rep | | | and site/side marked as [...] + + | [facility] | [address] [facility] | [place] [address] | | | SERVICES, CORE | PARK [...] [facility] | [address] | [place] [address] | | | SERVICES, CORE | PARK [...] [facility] | [address] | [place] [address] | | | SERVICES, CORE | PARK [...] [facility] | [address] | [place] [address] | | | SERVICES, CORE | PARK [...] | | | LABORATORY | | | UKRAINIAN | | | SERVICES, | | | [...] + + | [facility] | [address] | [place] [address] | | | SERVICES, CORE | TABITHA [...] [facility] | [address] | [place] [address] | | | SERVICES, CORE | PARK [...] | + + + + + | [facility] | [address] | [place] [address] | | | SERVICES, CORE | TABITHA [...] [facility] | [address] | [place], [place] | | | JULIANN S[facility] [place] | [address] | [address] | | | TESTS | | | [...] MARIA | [address] | [place], [place] | | | JULIANN SILVA OF [place] | [facility] | [address] | | | TESTS | | | | + + + + + CAPILLARY BLOOD GLUCOSE (NO CHG), POC (03/16/2017 1:16 PM PDT) + +-------+ + + + | Component | Value | Ref Range | Performed | Pathologist | | | | | At | Signature | + +-------+ + + + | BLOOD | 90 | 60 - 99 mg/dL | [facility] - | | | GLUCOSE, [...] NINOSKAQUAM | [address] | [place], [place] | | | [facility] | [address] | [address] | | | TESTS | | | [...] R[facility] | [address] | [place], [place] | | | GURINDER SILVA | [facility] | [address] | | | TESTS | | | [...] + + | [facility] | [address] [facility] | [place] [address] | | | SERVICES, ИРИНА | TABITHA [...] | | | LABORATORY | | | UKRAINIAN | | | SERVICES, | | | [...] | + + + + + | [facility] | [address] | [place] [address] | | | SERVICES, CORE | TABITHA [...] (H) | 60 - 99 mg/dL | [facility] - | | | GLUCOSE, [...] MARIA | [address] | [place], [place] | | | GURINDER SILVA | [facility] | [address] | | | TESTS | | | [...] | + + + + + | [facility] | [address] | [place] [address] | | | ИРИНА ANTOINE | TABITHA [...] MARQU[facility] | [address] | [place], [place] | | | [facility]ANN [facility] OF CARE | [facility] | [address] | | | TESTS | | | | + + + + + OPERATION RECORD (03/16/2017 9:30 AM PDT) + + | Procedure Note | + + | Dale Mak MD - 03/15/2017 3:42 PM PDT Date of Service: 03/15/2017 Attending | | Surgeon:Ron Powell MD. Science Liaison(s):Dale Mak MD. | | Preoperative Diagnoses: 1.Cardiogenic [...] The | | patient was transferred to [facility] for further management. At [facility], the patient continued | | [...] cannulation with micropuncture | | wire. A 7-Zambian sheath was placed in an antegrade direction down the SFA for distal | | perfusion. A 19-Zambian arterial cannula was placed in a retrograde [...] 03/15/2017 15:23:00DT: 03/15/2017 15:42:27Job #: | | [id number] | | | |A 19-Zambian arterial cannula was placed in a retrograde [...] |HS/MODL | | | | | | /[id number] | + + CBC (HEMOGRAM) ONLY (03/16/2017 [...] [facility] | [address] | [place] [address] | | | SERVICES, CORE | PARK [...] [facility] | [address] | [place] [address] | | | SERVICES, CORE | PARK [...] | + + + + + | [facility] | [address] | [place] [address] | | | SERVICES, CORE | TABITHA [...] [facility] | [address] | [place], [place] | | | JULIANN [facility]VA [facility] [place] | [address] | [address] | | | TESTS | | | [...] BLUAM | [address] | [place], [place] | | | JULIANN SILVA OF CARE | [facility] | [address] | | | TESTS | | | [...] [facility] | [address] | [place], [place] | | | [facility] | [address] | [address] | | | TESTS | | | [...] Endotracheal | RADIOLOGY VOICE | | tube, [place]лег catheter and enteric tube remain in place. [...] Note | + + | Service Account, Blink (air taxi) In Interface - 03/16/2017 8:27 AM PDT EXAM: IA CHEST 1 | | VIEW HISTORY: Evaluate cannula placement. heart failure.COMPARISON: YesterdayFINDINGS: | | Endotracheal tube, [place]лег catheter and enteric tube remain in place. [...] MARIA | [address] | [place], [place] | | | [facility] | [address] | [address] | | | TESTS | | | [...] (H) | 60 - 99 mg/dL | [facility] - | | | GLUCOSE, [...] [facility] | [address] | [place], [place] | | | JULIANN SILVA OF [facility] | [facility] | [address] | | | TESTS | | | | + + + + + SI-XS-GRW-KARY ISIDRO RT (03/16/2017 3:42 AM PDT) + [...] MAR[facility] | [address] | [place], [place] | | | JULIANN S[facility]VA [facility] [place] | [address] | [address] | | | TESTS | | | [...] [facility] | [address] | [place], [place] | | | [facility] | [address] | [address] | | | TESTS | | | [...] + + | [facility] | [address] | [place] [address] | | | SERVICES, CORE | TABITHA [...] [facility] | [address] | [place], [place] | | | JULIANN SILVA OF [place] | [address] | [address] | | | TESTS | | | [...] | + + + + + | [facility] | [address] | [place] [address] | | | SERVICES, ИРИНА | TABITHA [...] [facility] | [address] | [place] [address] | | | SERVICES, CORE | PARK [...] | | | LABORATORY | | | UKRAINIAN | | | SERVICES, | | | [...] | + + + + + | [facility] | [address] | [place] [address] | | | SERVICES, CORE | TABITHA [...] [facility] | [address] | [place] [address] | | | SERVICES, CORE | PARK [...] | + + + + + | [facility] | [address] | [place] [address] | | | SERVICES, CORE | PARK [...] | + + + + + | [facility] | [address] | [place] [address] | | | ARASH, ИРИНА | TABITHA [...] | + + + + + | [facility] | [address] | [place] [address] | | | SERVICES, CORE | TABITHA [...] (H) | 60 - 99 mg/dL | [facility] - | | | GLUCOSE, [...] [facility] | [address] | [place], [place] | | | JULIANN SILVA OF CARE | [address] | [address] | | | TESTS | | | [...] [facility] | [address] | [place] [address] | | | SERVICES, CORE | PARK [...] [facility] | [address] | [place], [place] | | | JULIANN SILVA OF [facility] | [address] | [address] | | | TESTS | | | [...] + + | [facility] | [address] [facility] | [place] [address] | | | SERVICES, CORE | TABITHA [...] | | | LABORATORY | | | UKRAINIAN | | | SERVICES, | | | [...] AST CMNT | No Hemo | | [facility] | | | | | [...] | + + + + + | [facility] | [address] | [place] [address] | | | SERVICES, CORE | [address] | | | + + + + + SQ-YD-FIJ-HB,POC RT (03/16/2017 12:22 AM PDT) + + [...] [facility] | [address] | [place], [place] | | | [facility] | [address] | [address] | | | TESTS | | | [...] + + + | [facility] | [address] | [place], [place] | | | [facility] | [address] | [address] | | | TESTS | | | [...] MARQU[facility] | [address] | [place], [place] | | | [facility]ARE | [address] | [address] | | | TESTS | | | [...] E[facility]OGIO [facility] | [address] | [place], [place] | | | [facility] PO[facility] | [address] | [address] | | | TESTS | | | [...] | + + | Service Account, Arely Rimini Street In Interface - 03/16/2017 8:27 AM PDT [...] MARIA | [address] | [place], [place] | | | JULIANN SILVA [facility] | [address] | [address] | | | TESTS | | | [...] MARIA | [address] | [place], [place] | | | [facility]ARE | [address] | [address] | | | TESTS | | | [...] [facility] | [address] | [place] [address] | | | SERVICES, CORE | PARK [...] [facility] | [address] | [place] [address] | | | SERVICES, CORE | PARK [...] [facility] | [address] | [place] [address] | | | SERVICES, [facility] | TABITHA [address]ICE[address] | | | + [...] | Ambubag and suction available at bedside. [facility] Mac 4 used to | | [...] [facility] | [address] | [place], [place] | | | JULIANN SILVA [facility] | [address] | [address] | | | TESTS | | | | + + + + + AH-FS-LZZ-HB,POC RT (03/15/2017 7:39 PM PDT) + + [...] MARQU[facility] | [address] | [place], [place] | | | JULIANN SILVA [facility] | [address] | [address] | | | TESTS | | | [...] [facility] | [address] | [place], [place] | | | [facility] | [address] | [address] | | | TESTS | | | [...] [facility] | [address] | [place], [place] | | | HILL, POINT OF CARE | [address] | [address] | | | TESTS | | | | + + + + + X-RAY PORTABLE CHEST 1 VIEW (03/15/2017 5:51 PM PDT) + + | Specimen | + + | | + + + + + | Narrative | Performed At | + + + | STUDY: IA CHEST 1 VIEW 03/15/17 17:40:08 COMPARISON: 03/15/17 at | [facility] | | 3:52 PM. HISTORY: Line [...] | | + +---------+ + + | [facility] RADIOLOGY | | | | [...] given by: Power of | | | corporate attorney Patient identity confirmed per policy: Yes Team Pause: | | | Immediatly prior to the procedure a pause per protocol was called. A | | | pause verifies correct patient, procedure, equipment, support services rep | | | and site/side marked as [...] modified Seldinger technique (a | | | rqgpbjlx-uiiw-lyp-lrpuww-tooe-nxxs-pcxlzqa-rhr-gxothllt) was used for | | | vessel [...] Name: Ron Mckeon MRN: | | | [id number] 03/15/2017 Time: 5:26 PM Diagnosis: shock At [...] Jose Ramon Alvarado | | | R2, [facility] Emergency Medicine Personal Pager: [phone] | | | | | + + + LACTATE (03/15/2017 4:49 PM PDT) + + + + + + | Component | Value | Ref Range | Performed | Pathologist | | | | | At | Signature | + + + + + + | LACTATE | 7.5 () | mmol/L | [facility] | | | | | [...] | + + + + + | [facility] | [address] | [place] [address] | | | ИРИНА ANTOINE | TABITHA [...] (H) | 60 - 99 mg/dL | [facility] - | | | GLUCOSE, [...] [facility] | [address] | [place], [place] | | | [facility]ARE | [address] | [address] | | | TESTS | | | [...] BLUAM | [address] | [place], [place] | | | JULIANN SILVA OF CARE | [facility] | [address] | | | TESTS | | | [...] MARQU[facility] | [address] | [place], [place] | | | R[facility]O PO[facility] | [address] | [address] | | | TESTS | | | [...] R[facility] | [address] | [place], [place] | | | JULIANN SILVA OF CARE | [facility] | [address] | | | TESTS | | | [...] MARIA | [address] | [place], [place] | | | [facility]O POINT OF CARE | [facility] | [address] | | | TESTS | | | [...] [facility] | [address] | [place] [address] | | | SERVICES, CORE | TABITHA [...] + | [facility] | [address] | [place] [address] | | | SERVICES, CORE | TABITHA [...] [facility] | [address] | [place] [address] | | | SERVICES, CORE | PARK [...] [facility] | [address] | [place] [address] | | | SERVICES, CORE | PARK [...] | | | LABORATORY | | | UKRAINIAN | | | SERVICES, | | | [...] | + + + + + | [employer] [facility] | [address] | [place] [address] | | | SERVICES, CORE | TABITHA [...] Division of Cardiothoracic Surgery | | | [facility] Physicians [facility] - Mail Code [id number] [id number] | | | [place] [id number] | | + + + X-RAY PORTABLE CHEST 1 VIEW (03/15/2017 2:32 PM PDT) + + | Specimen | + + | | + + + + + | Narrative | Performed At | + + + | STUDY: IA CHEST 1 VIEW 03/15/17 14:21:08 COMPARISON: 03/15/17. | [facility] | | HISTORY: Introducer placement-June when [...] Note | + + | Service Account, [employer] Res In Interface - 03/15/2017 2:46 PM [...] + + + + | PRODUCT | [id number] | | [facility] | | | UNIT [...] + + + + | EXPIRATION | [id number] | | [facility] | | | DATE [...] + + + + | BLOOD | [id number] | | [facility] | | | PRODUCT [...] | + + + + + | [employer] [facility] | [address] | [place] [address] | | | SERVICES, | [address] [...] + + + + | PRODUCT | [id number] | | [facility] | | | UNIT [...] + + + + | EXPIRATION | [id number] | | [facility] | | | DATE [...] + + + + | BLOOD | [id number] | | [facility] | | | PRODUCT [...] + | [facility] | [address] | [place] [address] | | | SERVICES, | [address] [...] + + + + | PRODUCT | [id number] | | [facility] | | | UNIT [...] + + + + | EXPIRATION | [id number] | | [facility] | | | DATE [...] + + + + | BLOOD | [id number] | | [facility] | | | PRODUCT [...] + + | [facility] | [address] [facility] | [place] [address] | | | SERVICES, | [address] [...] + + + + | PRODUCT | [id number] | | [facility] | | | UNIT [...] + + + + | EXPIRATION | [id number] | | [facility] | | | DATE [...] + + + + | BLOOD | [id number] | | [facility] | | | PRODUCT [...] [facility] | [address] | [place] [address] | | | SERVICES, | [address] | | | | TRANSFUSION MEDICINE | | | | + + + + + DQ-DJ-AUE-HB,POC RT (03/15/2017 1:23 PM PDT) + + [...] [facility] | [address] | [place], [place] | | | JULIANN SILVA OF [facility] | [address] | [address] | | | TESTS | | | [...] [facility] | [address] | [place], [place] | | | R[facility]O POINT OF CARE | [address] | [address] | | | TESTS | | | [...] Beds At [facility] | [facility] DEPT OF | | [facility] Adult Echocardiography | CARDIOLOGY | | Laboratory [address] [place] [address], | | | [place] [address] Pt Name: | | | RON Neena MCKEON Study Date/Time 03/15/2017 / 12:54:21 | | | [facility] [id number] Most recent | | | prior: -Acc #: [id number] No. previous | | | echos: 0DOB: 1955 61 years Heart Rate: | | | 145 bpmHeight: Blood | | | Pressure: 90/67 mm/HgWeight: 249.0 | | | lb Gender: | | | MBSA: 2.34 m2 Order | | | ID: [id number] [employer] Teacher Assistant: Vahid NOBLES | | | Referring Provider: [...] Report electronically signed by: | | | [id number] Yajaira Johnson MD (03/15/2017, 3:38:52 PM) Final | | | | | | | | | | | | Final | | + + + + + | Procedure Note | + + | Interface, Cardiology Results - 03/15/2017 3:38 PM [facility] | | [facility] Echocardiography Laboratory [address] [place] [address] | | [place], [place] [address] Pt Name: RON Chaudhary | | MIKE Study Date/Time 03/15/2017 / 12:54:21 PMMRN: [id number] Most | | recent prior: -Acc #: [id number] No. previous echos: 0DOB: 1955 61 | | years Heart Rate: 145 bpmHeight: Blood Pressure: 90/67 | | mm/HgWeight: 249.0 lb Gender: MBSA: 2.34 m2 | | Order ID: [id number] [employer] Teacher Assistant: Vahid Parmar RCSReferring Provider: | | Gaurav [...] values Report electronically signed by: | | [id number] Yajaira Johnson MD (03/15/2017, 3:38:52 PM) Final [...] | | | |Report electronically signed by: [id number] Yajaira Johnson MD (03/15/2017, 3:38:52 PM) | | | | | | | | Final | + + + + + + + | Performing | Address | City/State/Zipcode | Phone Number | | Organization | | | | + + + + + | [facility] | [address] | [place], [place] | | | CARDIOLOGY | [address] | [address] | | + + + + + [...] DEPT OF | [address] | [place], [place] | | | CARDIOLOGY | [address] | [address] | | + + + + + [...] + | [facility] | [address] | [place] [address] | | | SERVICES, | [address] [...] [facility] | [address] | [place] [address] | | | SERVICES, | [address] [...] + + + + + | [facility] | [address] | [place] [address] | | | SERVICES, CORE | TABITHA [...] | + + + + + | [facility] | [address] | [place] [address] | | | ИРИНА ANTOINE | TABITHA [...] | + + + + + | [facility] | [address] | [place] [address] | | | SERVICES, | [address] [...] [facility] | [address] | [place] [address] | | | SERVICES, ИРИНА | TABITHA [...] [facility] | [address] | [place] [address] | | | SERVICES, CORE | TABITHA [...] [facility] | [address] | [place] [address] | | | SERVICES, CORE | [address] [...] | | | LABORATORY | | | UKRAINIAN | | | SERVICES, | | | [...] | + + + + + | [facility] | [address] | [place] [address] | | | SERVICES, CORE | [address] | | | + + + + + TM-PI-PZR-HB,POC RT (03/15/2017 12:16 PM PDT) + + [...] MARQUAM | [address] | [place], [place] | | | [facility] | [facility] | [address] | | | TESTS | | | [...] | | 03/15/17 at 1202, Until [facility] 04/02/17 | | | at 2030, [...] | | | | | Until [facility] 04/02/17 at 203, | | | [...] | | | | | Until [facility] 04/02/17 at 2030, severe | | [...] | | | First dose on [facility] 04/02/17 at | | | 2100, Until Discontinued | | + +---+ | | | + +---+ documented in this encounter
--- OUTSIDE RECORDS SUMMARY | ~2019-01-22 | XMS | Clinical Summary ---
Demographics + + + | Address | [address] [place] [address] [address] | | | [place] [address] | + + + | Home Phone | | + + + | Preferred Language | Unknown | + + + | Marital Status | | + + + | Muslim Affiliation | Unknown | + + + | Race | Unknown | + + + | Ethnic Group | Unknown | + + + Author + + + | Author | Cassandra Korbitec | + + + | Organization | [facility] | + + + | Address | Unknown | + + + | Phone | Unavailable | + + + Support + + +---------+ + | Name | Relationship | Address | Phone | + + +---------+ + | Venice Mckeon | ECON | Unknown | | + + +---------+ + Care Team Providers + +------+ + | Care Bill Poster Installer Name | Role | Phone | [...] + + | Father | | | [place] | | | | (Age | | [...] MCKEON Date of : 1955 | [facility] | | Performing Physician: Rocio | RADIOLOGY | | [facility] | | | | | | INDICATIONS [...] MV A Rohan: 0.86 m/s MV Dec [place]: 3.26 m/s2 | | | MV DecT: [...] | 21.47 mmHg TR Vmax: 2.31 m/s Breakfast Host: DBS Authenticated | | | by: Rocio [place] olive Report Date/Time: 11-04-2018 19:16:25 | | + + + + + | Procedure Note | + + | Sebastian, Rad Results In - 11/04/2018 7:20 PM PST Patient Name: Belkys MCKEON of | | : 5Accession: [id number] Physician: Rocio | | Alsamara INDICATIONS------ | [...] | 5.92 cmLVPWd: 1.01 cmLVOT Area: 3.17 ey4ORNA Diam: 2.01 cm%FS: 15.56 %EF(Teich): | | [...] mlLAESV Index (A-L): 42.88 ml/m2LAAs A2C: 24.92 [id number] A-L | | A2C: 95.08 mlLALs A2C: 5.54 cmLAAs A4C: 19.37 rc4LGFCZ A-L A4C: 70.66 mlLALs | | A4C: 4.50 cmRAAs: 18.79 de6CVLBS A-L: 67.38 mlRAESV MOD: 63.17 mlRALs: 4.44 | | cmTAPSE: 2.12 cmAV maxP.82 mmHgAV meanP.56 mmHgAV Vmax: 1.30 m/Emil | | Vmean: 0.88 m/Emil VTI: 25.33 cmAVA Vmax: 2.55 cm2AVA (VTI): 2.49 jf2PWPY (Vmax): | | 0.00 cm2/m2AVAI (VTI): 0.00 cm2/m2LVOT maxP.40 mmHgLVOT meanP.91 | | mmHgLVSI Dopp: 29.85 ml/m2LVSV Dopp: 63.29 mlLVOT Vmax: 1.04 m/sLVOT Vmean: 0.64 | | m/sLVOT VTI: 19.92 cmMV A Rohan: 0.86 m/sMV Dec [place]: 3.26 m/s2MV DecT: 218.32 | | msMV E Rohan: 0.71 m/sMV E/A Ratio: 0.82 MV PHT: 63.31 msMVA By PHT: 3.47 | | sm0Lwwhyk e': 0.04 m/sSeptal E/e': 15.51 Lateral e': 0.06 m/sLateral E/e': 10.91 | | RAP: 5 mmHgRVSP: 26.47 mmHgTR maxP.47 mmHgTR Vmax: 2.31 m/sSonographer: | | DBSAuthenticated by: Elinagwendolyn [facility] Date/Time: 11-04-2018 19:16:25IMPRESSION:1. 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
--- OUTSIDE RECORDS SUMMARY | ~2019-01-22 | XMS | Clinical Summary ---
Demographics + + + | Address | [address] [place] [address] [address] | | | [place] [address] | + + + | Home Phone | | + + + | Preferred Language | Unknown | + + + | Marital Status | | + + + | Sabianist Affiliation | Unknown | + + + | Race | Unknown | + + + | Ethnic Group | Unknown | + + + Author + + + | Author | Cassandra Socialite | + + + | Organization | [facility] | + + + | Address | Unknown | + + + | Phone | Unavailable | + + + Support + + +---------+ + | Name | Relationship | Address | Phone | + + +---------+ + | Venice Mckeon | ECON | Unknown | | + + +---------+ + Care Team Providers + +------+ + | Care Translation Director Name | Role | Phone | [...] + + | Father | | | MD | | | | (Age | | [...] RON MCKEON Date of : 1955 | [facility] | | Performing Physician: Rocio | RADIOLOGY | | [facility] | | | | | | INDICATIONS [...] MV A Rohan: 0.86 m/s MV Dec [place]: 3.26 m/s2 | | | MV DecT: [...] | 21.47 mmHg TR Vmax: 2.31 m/s Plastic Tubing Insulation Supervisor: DBS Authenticated | | | by: Rocio [place] Report Date/Time: 11-04-2018 19:16:25 | | + + + + + | Procedure Note | + + | Sebastian, Rad Results In - 11/04/2018 7:20 PM PST Patient Name: Belkys MCKEON of | | : 5Accession: [id number] Physician: Rocio | | Alsamara INDICATIONS------ | [...] | 5.92 cmLVPWd: 1.01 cmLVOT Area: 3.17 [id number] Diam: 2.01 cm%FS: 15.56 %EF(Teich): | | [...] mlLAESV Index (A-L): 42.88 ml/m2LAAs A2C: 24.92 vn1YLXZP A-L | | A2C: 95.08 mlLALs A2C: 5.54 cmLAAs A4C: 19.37 rf7GQGFL A-L A4C: 70.66 mlLALs | | A4C: 4.50 cmRAAs: 18.79 rz6QHLAS A-L: 67.38 mlRAESV MOD: 63.17 mlRALs: 4.44 | | cmTAPSE: 2.12 cmAV maxP.82 mmHgAV meanP.56 mmHgAV Vmax: 1.30 m/Emil | | Vmean: 0.88 m/Emil VTI: 25.33 cmAVA Vmax: 2.55 cm2AVA (VTI): 2.49 ip7PHGA (Vmax): | | 0.00 cm2/m2AVAI (VTI): 0.00 cm2/m2LVOT maxP.40 mmHgLVOT meanP.91 | | mmHgLVSI Dopp: 29.85 ml/m2LVSV Dopp: 63.29 mlLVOT Vmax: 1.04 m/sLVOT Vmean: 0.64 | | m/sLVOT VTI: 19.92 cmMV A Rohan: 0.86 m/sMV Dec [place]: 3.26 m/s2MV DecT: 218.32 | | msMV E Rohan: 0.71 m/sMV E/A Ratio: 0.82 MV PHT: 63.31 msMVA By PHT: 3.47 | | nu0Ofnsmw e': 0.04 m/sSeptal E/e': 15.51 Lateral e': 0.06 m/sLateral E/e': 10.91 | | RAP: 5 mmHgRVSP: 26.47 mmHgTR maxP.47 mmHgTR Vmax: 2.31 m/sSonographer: | | DBSAuthenticated by: Elinagwendolyn [facility] Date/Time: 11-04-2018 19:16:25IMPRESSION:1. 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
--- OUTSIDE RECORDS SUMMARY | ~2019-01-22 | XMS | Encounter Summary ---
Demographics + + + | Address | [address] | | | [place] [address] | + + + | Home Phone [...] [place] | | | | | [address] | | + + + + + Care Team Providers + +------+ + | Care Semiconductor Packages Tester Name | Role | Phone | + +------+ + | Young Haque DO | PCP | | + +------+ + Encounter Details +--------+ + + + + | Date | Type | Department | Care Team | Description | +--------+ + + + + | 03/19/ | Abstract | [facility] [place] | Jenny, | | | 2018 | | CARDIOLOGY [address] | [place] NURSE [facility]AFF [address] | | | | | [place], | [place], | | | | | [place] [address] | [place] [address] | | | | | [phone] | [phone] | | | | | | | [...] | | | | | | [place] [address] | | | | | | [phone] | | | | | | | [...]
--- OUTSIDE RECORDS SUMMARY | ~2019-01-22 | XMS | Encounter Summary ---
Demographics + + + | Address | [address] | | | [place] [address] | + + + | Home Phone [...] | [place] | | | | | [address] | | + + + + + Care Team Providers + +------+ + | Care Leak Detector Name | Role | Phone | + [...] | | | involving | [address] [place] | | | | | [place] | [place] | [place] | | | | | coronary | [address] | [address] | | | | | artery of | Phone: | Phone: | | | | | [place] heart | [phone] | [phone] | | | | | without | Fax: | Fax: | | | | | angina | [phone] | [phone] | | | | | pectoris | | | + + + + + + + Encounter Details +--------+---------+ + + + | Date | Type | Department | Care Team | Description | +--------+---------+ + + + | 11/09/ | Office | [facility] | Randy Figueroa, | Coronary artery | | 2019 | Visit | MED CTR CARDIAC | MD [address] | disease involving | | | | REHABILITATION [address] [place], | [place] coronary | | | | [address] [place] | [place] [address] | artery of [place] | | | | [place] [address] | [phone] | heart without angina | | | | [phone] | | pectoris (Primary | | | [...] of this encounter Progress Jonah Coker-Cheri Kendrick, SENIOR DESIGN ENGINEERING SPECIALIST - 11/09/2018 1000 PSTFormatting of this note might be diff erent from the original. [facility] CARDIAC REHABILITATION [address] [facility] [address] Cardiac Rehab Date: 11/09/2018 Patient Information Patient Name: Bob Will Date of : 1955 Age: 63 y.o. Encounter Diagnoses Code Name Primary? I25.10 Coronary artery disease involving [place] coronary artery of [place] heart without angina pectoris Yes Number of [...] | | | | | | [place] [address] | | | | | | [phone] | | | | | | | | +--------+ + + + + documented as of this encounter Visit Diagnoses + + | Diagnosis | + + | Coronary artery disease involving [place] coronary artery of [place] heart without | | angina pectoris - Primary | + + documented in this encounter"
--- OUTSIDE RECORDS SUMMARY | ~2019-01-22 | XMS | Clinical Summary ---
Demographics + + + | Address | [address] | | | [place] [address] | + + + | Home Phone [...] [facility] | | | and [...] [place] | | | | | [address] | | + + + + + Care Team Providers + +------+ + | Care Special Procedure Tech Name | Role | Phone | [...] | | Activ | | (VITAMIN D-3) 29180 | a week. | | | | [...] | | nasal spray | nasal spray [place] 2 | | | | | | [...] e | | spray | aerosol spray [place] | | | | | | | [...] | 11/12/2017 | + + + | RENDERER-D (AICD) Medtronic 10/16/17 EULOGIO Darby | 10/19/2017 | + + + + + | Overview: Formatting of this note might be different from the | | original. MODEL NAME MODEL# SERIAL# DATE IMPLANTED GENERATOR | | Medtronic [id number] 10/16/17 RV LEAD Medtronic [id number] | | [id number] 10/16/17 A LEAD Medtronic [id number] 10/16/17 | | Coronary Sinus LEAD Medtronic [id number] 10/16/17 | | Indication: ischemic cardiomyopathy with reduced EF 30-35% Last | | Assessment & Plan: Medtronic AICD Placed in 10/2017 at [facility]. | | A:-Patient ventricular paced 100% this morning. No arrhythmias on | | telemetry.P:-No acute therapy. Continue current therapy. | | | | Last Assessment & Plan: Medtronic AICD Placed in 10/2017 at [facility]. | | | |A: | |-Patient [...] + + + | Overview: S/P Medtronic RENDERER-D 10-16-17 Dr Darby, [facility] Scan | | 10/13/17 shows No [...] + + | Coronary artery disease involving [place] coronary artery of | 04/06/2017 | | [place] heart without angina pectoris | | + [...] + + + | Acute anterior wall [place] | 04/03/2017 | + + + + [...] involving | | | | | | [place] coronary | | | | | | artery of [place] | | | | | | heart without angina | | | | | | pectoris (Primary | | | | | | Dx); Post PTCA | +--------+ + + + + | 12/07/ | Office | | Randy Figueroa, | Coronary artery | | 2018 | Visit | | MD | disease involving | | | | | | [place] coronary | | | | | | artery of [place] | | | | | | heart [...] | | | | | (Primary Dx); RENDERER-D | | | | | | (AICD) Medtronic | | | | | | 10/16/17 [facility] Wilner; | | | | | | Ischemic | | | | | | cardiomyopathy | +--------+ + + + + | 12/02/ | Office | | Randy Figueroa, | Coronary artery | | 2018 | Visit | | MD | disease involving | | | | | | [place] coronary | | | | | | artery of [place] | | | | | | heart [...] involving | | | | | | [place] coronary | | | | | | artery of [place] | | | | | | heart [...] involving | | | | | | [place] coronary | | | | | | artery of [place] | | | | | | heart [...] involving | | | | | | [place] coronary | | | | | | artery of [place] | | | | | | heart [...] involving | | | | | | [place] coronary | | | | | | artery of [place] | | | | | | heart [...] whether | | | | | | [place] or | | | | | | transplanted heart | | | | | | (Primary Dx); Post | | | | | | PTCA | +--------+ + + + + | 10/27/ | Telephone | | Jenny, | Other (medication | | 2018 | | | ADARSH Santo | issue) | +--------+ + + + + from [...] + | Blood Pressure | 104/72 | 09/21/201854 PST | + + + + | Pulse | 58 | 09/21/201854 PST | + + + + | [...] W | | | | | | [place], | | | | | | [place] [address] | | | | | | [phone] | | | | | | | [...] 6f - | Generi | Left: | Gdd Hcan[employer]ytics LORIN | [id number] | 12/05/ | [id number] | | [id number]: Qty: 1 | c | Groin | - TERU | [id number] | 2018 | / | | on 05/19/2018 by Missael, | | | | 20 | | /[id number] | | Khurram Isabel MD | | | | | | 371 | + +--------+--------+ +--------+--------+--------+ | Ticket Sales Supervisor-D MedtronicImplanted: | Implan | | MEDTRONIC [...] N/A: | ISAACS | | 12/29/ | [id number] | | Eluting Coronary Stent System | | Mackay | DIAGNOSTICS | | 2020 | 0-18 / | | Implanted: Qty: 1 on | | ry | - DAINA | | | | | 03/15/2017 by Monse Ross, | | | | | | /[id number] | | | | | | | | 61 | + +--------+--------+ +--------+--------+--------+ | Xience Alpine Everolimus | Stent | N/A: | ISAACS | | 11/03/ | [id number] | | Eluting Coronary Stent System | | Mackay | DIAGNOSTICS | | 2020 | 0-23 / | | Implanted: Qty: 1 on | | ry | - DAINA | | | | | 03/15/2017 by Monse Ross, | | | | | | /[id number] | | MD | | | | | | 41 | + +--------+--------+ +--------+--------+--------+ | Kit Perclose Proglide 6fr - | | Right: | ISAACS | [id number] | | 84524- | | [id number]: Qty: 1 | | Groin | VASCULAR - | [id number] | | 03 / | | on 05/19/2018 by Missael, | | | ABVA | 89 | | | | Khurram Isabel MD | | | | | | | + +--------+--------+ +--------+--------+--------+ | Kit Perclose Proglide 6fr - | | Right: | ISAACS | [id number] | | 45294- | | [id number]: Qty: 1 | | Groin | VASCULAR - | [id number] | | 03 / / | | [...] | EXTERNAL LAB: KHOI | Routin | 12/20/2018 | | Results [...] | e | 23:59 PDT | Interrogation RENDERER-D | procedure are in the | | [...] remote PDF scanned into | | | [facility] for remote interrogation results. Data [...] | [employer] | MODA | [id number] | | [phone] | | Medica | | MEDICAID HMO | HEALTH | | 018-Pr | 1 | | id | | | MDCD | | esent | | | | | | [place] | | | | | | + +--------+ +--------+ +---------+--------+ | VETERANS ADMIN | VETERA | [id number] | 07/24/ | | | Indemn | | | NS | | 2016-P | | | ity | | | ADMIN | | resent | | | | | | [place] | | | | | | | | [place] | | | | | | + +--------+ +--------+ +---------+--------+ | VETERANS ADMIN | VETERA | [id number] | 07/24/ | | | Indemn | | | NS | | 2017-P | | | ity | | | ADMIN | | resent | | | | | | [place] | | | | | | | [...] [place] | | | 8 (Home) | [address] | + +--------+ +--------+ + + Advance Directives Patient has advance care planning documents, and code status on file. For more information, please contact:[facility] [place] [place] [address] + + + + + | Code [...]
--- OUTSIDE RECORDS SUMMARY | ~2019-01-22 | XMS | Encounter Summary ---
Demographics + + + | Address | [address] | | | [place] [address] | + + + | Home Phone [...] + + + | Author | [facility] | + + + | Organization | [facility] | + + + | Address | Unknown | + + + | Phone | Unavailable | + + + Support + + + + + | Name | Relationship | Address | Phone | + + + + + | Venice Mckeon | ECON | [address] | | | | | [place] [address] | | + + + + + Care Team Providers + +------+ + | Care Size Painter Name | Role | Phone | + [...] | | | | for Health | [place] | | | | | | and Healing, | Research | | | | | | 8th Floor | [place] | | | | | | [facility] [place] | [place], [place] | | | | | | [address] | [address] | | | | | | Phone: | Phone: | | | | | | [phone] | [phone] | | | | | | Fax: | Fax: | | | | | | [phone] | [phone] | +--------+--------+ + + + + Reason [...] | | | Degeneration | MEDICINE | [place], [place] | | | | | of cervical | [address] | [address] | | | | | | [address] | Phone: | | | | | intervertebr | [place], | [phone] | | | | | al disc | [place] [address] | Fax: | | | | | chronic | Phone: | [phone] | | | | | spine pain | [phone] | | | | | | cervical | Fax: | | | | | | stenosis | [phone] | | +--------+--------+ + + + + Encounter Details +--------+---------+ + + + | Date | Type | Department | Care Team | Description | +--------+---------+ + + + | 02/18/ | Office | [facility] at | Sapna Dutta MD | Neck pain; 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 | [facility] 8th Floor [address] | [address] | arthropathy, | | | | [address] | [place], [place] | cervical; Cervical | | | | Code: [facility] | [address] | spondylosis without | | | | for Health and | [phone] | myelopathy; | | | | Healing, 8th Floor | | Impingement syndrome | | | | [place], [place] | | of left shoulder; | | | | [address] | | Physical | | | | [phone] | | deconditioning; Post | | | [...] ideas. You will greatly increase your [facility] es of success if you [...] a smoking cessation program, such as the [employer] on's Liberty from Smoking program. Set a quit date. [...] in several forms, many of them available beci-hmq-kbwxbwt: Nicotine patches Nicotine gum and lozenges Nicotine [...] Smoking: After Your Visit", log into your [employer] account at [email or web address]. You can enter Y522 in the [employer]" search box. Not on [employer] Review the [employer] section of your After Visit Summary for directions on ho w to sign up. [id number] [employer]. Care instructions adapted under license by [facility]. This care instruction is for use with your licensed healthcar e professional. If you have questions about a medical condition or this instruction, always ask your healthcare professional. [employer] disclaims any warranty or liabili ty for your use of this information. Content Version: 9.3.24779; Last Revised: March 26, 2011 Information about [...] your doctor have elected to try a care home solution, the nerve to the facet j [...] frequently to treat pain of longstanding duration. [facility] Kwhlbqjammfues signed by Sapna Dutta MD at 02/19/2012 11:42 AM PDT documented in this encounter Progress Notes Sapna Dutta MD - 02/19/2012 10:50 AM PDT [facility] Office Visit Date: 02/19/2012 Mr. Mckeon was referred for Spine Center evaluation by Yesi Guerrero MD [facility] [address] [place] [address]. Reason for consult: Chief Complaint: Chief Complaint [...] surgery. 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 He lives with h is of 7 years, and they get along well. 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 He does not feel that he has had effective therapy for this problem. . He is here to "just get rid of the pain." Mr. Mckeon served in the [employer] from 6494-0500, including the first [place] [employer] war, d [employer] trucks. He was in combat. He does [...] by mouth two times daily. MULTIVITAMIN WITH HLY-FE-VBAIPUXM-GINKGO 400 MCG-300 MCG-120 MG TAB Take by [...] : 1955 Age: 56 Sex: M Acct: [id number] Loc: MRI Exam Date: 11/05/2011 Status: REG REF Radiology No: Unit No: [id number] EXAM# TYPE/EXAM RESULT CPT CODE [id number] MRI/CERVICAL SPINE W/O CONTRAST [id number] EXAM: MRI CERVICAL SPINE, Nov 05, 2011 01:04:00 PM. CLINICAL HISTORY: Chronic neck and left arm pain. COMPARISON: Cervical spine MRI from [facility] on 02/14/2010. TECHNIQUE: T1 and T2 [...] consider this. Mr. Mckeon cannot come to [facility] for treatment on any kind of regular [...] branch denerva tion option SAPNA DUTTA MD Replaced By [facility] documented in this encounter Plan [...] | 1955 Age: 56 Sex: M Acct: [id number] Loc: MRI Exam Date: | | | 11/05/2011 Status: REG REF Radiology No: Unit No: [id number] | | | EXAM# TYPE/EXAM RESULT CPT CODE [id number] MRI/CERVICAL SPINE W/O | | | CONTRAST [id number] EXAM: MRI CERVICAL SPINE, Nov 05, 2011 01:04:00 | | | PM. CLINICAL HISTORY: Chronic neck and left arm pain. | | | COMPARISON: Cervical spine MRI from [facility] on | | | 02/14/2010. TECHNIQUE: [...]
--- OUTSIDE RECORDS SUMMARY | ~2019-01-22 | XMS | Encounter Summary ---
Demographics + + + | Address | [address] | | | [place] [address] | + + + | Home Phone [...] | | | | | [place] [address] | | + + + + + Care Team Providers + +------+ + | Care Wool Scourer Name | Role | Phone | + [...] | | | | | | [place] [address] | | | +--------+--------+ + + + [...]
--- OUTSIDE RECORDS SUMMARY | ~2019-01-22 | XMS | Encounter Summary ---
Demographics + + + | Address | [address] | | | [place] [address] | + + + | Home Phone [...] [place] | | | | | [address] | | + + + + + Care Team Providers + +------+ + | Care Optimization Consultant Name | Role | Phone | + +------+ + | Young Haque DO | PCP | | + +------+ + Encounter Details +--------+ + + + + | Date | Type | Department | Care Team | Description | +--------+ + + + + | 03/28/ | Abstract | [facility] [place] | Jenny, | | | 2019 | | CARDIOLOGY [address] | | | | | [place], | [place], | | | | | [place] [address] | [place] [address] | | | | | [phone] | [phone] | | | | | | | [...] | | | | | | [place] [address] | | | | | | [phone] | | | | | | | [...]
--- OUTSIDE RECORDS SUMMARY | ~2019-01-22 | XMS | Encounter Summary ---
Demographics + + + | Address | [address] | | | [place] [address] | + + + | Home Phone | | + + + | Preferred Language | Unknown | + + + | Marital Status | | + + + | Anabaptist Affiliation | NRP | + + + [...] | | | | | [place] [address] | | + + + + + Care Team Providers + +------+ + | Care Camp Attendant Name | Role | Phone | [...] + | 10/16/ | Anesthesia | Cardiac Control Systems Designer | Terry Garvin, | | | 2018 | Event | at [facility] [address] [facility] | [facility] [address] [facility] | | | | | [facility] | [facility] | | | | | [facility] | [place], [place] | | | | | [place], [place] | [address] | | | | | [address] | [phone] | | | | | [phone] | | | +--------+ + + + [...] | | | | (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
--- OUTSIDE RECORDS SUMMARY | ~2019-01-22 | XMS | Encounter Summary ---
Demographics + + + | Address | [address] | | | [place] [address] | + + + | Home Phone [...] | | | | | [place] [address] | | + + + + + Care Team Providers + +------+ + | Care Scientific Associate Name | Role | Phone | [...] + | 10/16/ | Anesthesia | Cardiac Filament Tester | Terry Garvin, | | | 2018 | Event | at [facility] [address] [facility] | [facility] [address] [facility] | | | | | [facility] | [facility] | | | | | [facility] | [place], [place] | | | | | [place], [place] | [address] | | | | | [address] | [phone] | | | | | [phone] | | | +--------+ + + + [...] | | | | (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
--- OUTSIDE RECORDS SUMMARY | ~2019-01-22 | XMS | Encounter Summary ---
Demographics + + + | Address | [address] | | | [place] [address] | + + + | Home Phone | | + + + | Preferred Language | Unknown | + + + | Marital Status | | + + + | Latter Day Affiliation | NRP | + + + [...] | | | | | [place] [address] | | + + + + + Care Team Providers + +------+ + | Care Waiter/Waitress Club Name | Role | Phone | + [...] David | | | | | at [facility] | [facility] | | | | | [address] | [place] [address] | | | | | [facility] | | | | | | Mailcode: [id number] David | | | | | | [facility] | | | | | | Building [place], | | | | | | [place] [address] | | | | | | [phone] | | | +--------+ + + + [...]
--- OUTSIDE RECORDS SUMMARY | ~2019-01-22 | XMS | Encounter Summary ---
Demographics + + + | Address | [address] | | | [place] [address] | + + + | Home Phone | | + + + | Preferred Language | Unknown | + + + | Marital Status | | + + + | Mu-Ism Affiliation | NRP | + + + | Race | White | + + + | Ethnic Group | Not or | + + + Author + + + | Author | [facility] | + + + | Organization | [facility] | + + + | Address | Unknown | + + + | Phone | Unavailable | + + + Support + + + + + | Name | Relationship | Address | Phone | + + + + + | [place] Mckeon | ECON | [address] | | | | | [place] [address] | | + + + + + Care Team Providers + +------+ + | Care Ditch Repairer Name | Role | Phone | [...] | 2018 | Encounter | Services at [facility] | | | | | | [address] [facility] | | | | | | [facility] | | | | | | Mailcode: [id number] | | | | | | [facility] | | | | | | [place], [place] | | | | | | [address] | | | | | | [phone] | | | +--------+ + + + [...] | + + + | Report ====== General Clerk: Rodríguez Fortune ([phone]), shubham | [facility] | | richy [employer] Sales Consultant: shubham lockhart Fellow: shubham lockhart | RADIOLOGY | | Operating Room Manager: shubham lockhart Viewer: shubham lockhart Report Date: | CARDIAC IMAGING | | Oct 2017, 09:22:25 PST Patient ------- Patient: RON MCKEON | | | Acc #: [id number] | | | Ethnicity: N Status: Final [...] | | | Image Quality: Good Scanner Aix Architect: Nevolution Scanner | | | Model: Sanovation Scanner Serial Number: [id number] Scanner Software | | | Platform: 5.3.15.3.1.0 Staff: Rodríguez Fortune Modality: MR | | | Indication Name: routine Protocol Name: CMR W Flows WO Contrast | | | Findings -------- Non-cardiac findings were reviewed by Dr. Curtis. | | | This exam was terminated prematurely and is lmiited to desktop specialist images. | | | There are [...] - 10/16/2017 9:22 AM PST | | Report======General Clerk: Rodríguez Fortune ([id number]), shubham Rodriguezalyst: shubham | | Zackeryow: shubham Beckician: shubham Beckwithwer: shubham | | Judiort Date: 16 Oct 2017, 09:22:25 PSTPatient-------Patient: RON MCKEON | | JMedical Record Number: [id number] ID: [id number] #: [id number]: [id number]: | | Final ReportReport Number: [id number]: MaleBirthdate: 1955 (61 yrs)Study Date: 05 | | Oct 2017Study Description: CMR with Flows with ContrastReferring Physician: RAJIV | | HEITNERBlood Pressure: /Heart rate:Height (cm): 0Weight (kg): 89BMI (kg/m ): 0BSA | | (m ): 0 (Mosteller Formula)Image Quality: Glad to Have You Aix Architect: Flashtalking | | Technologie BiolActis Model: Ztail Serial Number: [id number] Software Platform: | | 5.3.15.3.1.0Staff: Rodríguez FortuneModality: MRIndication Name: routineProtocol Name: | | CMR W Flows WO ContrastFindings--------Non-cardiac findings were reviewed by | | Ever.This exam was terminated prematurely and is lmiited to desktop specialist images.There are | | bilateral pleural [...] Formula) | |Image Quality: Good | |Scanner Aix Architect: Nevolution | |Scanner Model: Sanovation | |Scanner Serial Number: [id number] | |Scanner Software Platform: 5.3.15.3.1.0 | |Staff: Rodríguez Fortune | |Modality: MR | |Indication Name: routine | |Protocol Name: CMR W Flows WO Contrast | |Findings | |-------- | |Non-cardiac findings were reviewed by Dr. Curtis. | |This exam was terminated prematurely and is lmiited to desktop specialist images. | |There are bilateral pleural [...]
--- OUTSIDE RECORDS SUMMARY | ~2019-01-22 | XMS | Encounter Summary ---
Demographics + + + | Address | [address] | | | [place] [address] | + + + | Home Phone [...] | [place] | | | | | [address] | | + + + + + Care Team Providers + +------+ + | Care Speed Operator Name | Role | Phone | [...] | | | involving | [address] | | | | | [place] | MARKO MCGUIRE | MARKO Herrera | | | | | coronary | [address] | [address] | | | | | artery of | Phone: | Phone: | | | | | [place] heart | [phone] | [phone] | | | | | without | Fax: | Fax: | | | | | angina | [phone] | [phone] | | | | | pectoris | | | + + + + + + + Encounter Details +--------+---------+ + + + | Date | Type | Department | Care Team | Description | +--------+---------+ + + + | 11/23/ | Office | [facility] | Rahullindacathy Lindaangusleo, | Acute on chronic | | 2019 | Visit | [facility]ARD[facility]AC | MD [address] | systolic congestive | | | | REHABILITATION [address] | [address], | heart failure (HCC) | | | | [address] | [place] [address] | (Primary Dx) | | | | [place] [address] | [phone] | | | | | [phone] | | | +--------+---------+ + + + [...] of this encounter Progress Jonah Coker-Cheri Kendrick, ELECTRO MECHANICAL ENGINEER - 11/23/2018 1000 PDTFormatting of this note might be diff erent from the original. [facility]ATION [address] [facility] [address] Cardiac Rehab Date: 11/23/2018 Patient Information Patient [...] [place], | | | | | | [place] [address] | | | | | | [phone] | | | | | | | | +--------+ + + + + documented as of this encounter Visit Diagnoses + + | Diagnosis | + + | Acute on chronic systolic congestive heart failure (HCC) - Primary Acute on chronic | | systolic heart failure | + + documented in this encounter"
--- OUTSIDE RECORDS SUMMARY | ~2019-01-22 | XMS | Encounter Summary ---
Demographics + + + | Address | [address] | | | [place] [address] | + + + | Home Phone | | + + + | Preferred Language | Unknown | + + + | Marital Status | | + + + | Scientologist Affiliation | NRP | + + + | Race | White | + + + | Ethnic Group | Not or | + + + Author + + + | Author | [facility] | + + + | Organization | [facility] | + + + | Address | Unknown | + + + | Phone | Unavailable | + + + Support + + + + + | Name | Relationship | Address | Phone | + + + + + | [place] Will | ECON | [address] | | | | | [place] [address] | | + + + + + Care Team Providers + +------+ + | Care Bread Wrapping Machine Feeder Name | Role | Phone [...] + | 10/16/ | Anesthesia | Cardiac Rehab Aide | Terry Garvin, | | | 2018 | Event | at [facility] [address] 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
--- OUTSIDE RECORDS SUMMARY | ~2019-01-22 | XMS | Encounter Summary ---
Demographics + + + | Address | [address] | | | [place] [address] | + + + | Home Phone [...] | | | | | [place] [address] | | + + + + + Care Team Providers + +------+ + | Care Management Trainee Program Stores Name | Role | Phone | + [...] | | | | | [facility] | | | | | | [place], [place] | | | | | | [address] | | | +--------+ + + + [...]
--- OUTSIDE RECORDS SUMMARY | ~2019-01-22 | XMS | Encounter Summary ---
Demographics + + + | Address | [address] | | | [place] [address] | + + + | Home Phone | | + + + | Preferred Language | Unknown | + + + | Marital Status | | + + + | Jew Affiliation | NRP | + + + | Race | White | + + + | Ethnic Group | Not or | + + + Author + + + | Author | [facility] | + + + | Organization | [facility] | + + + | Address | Unknown | + + + | Phone | Unavailable | + + + Support + + + + + | Name | Relationship | Address | Phone | + + + + + | Venice Mckeon | ECON | [address] | | | | | [place] [address] | | + + + + + Care Team Providers + +------+ + | [facility] Representative Name | Role | Phone | [...] | DECANNULATION | | 2017 | | [facility] | [address] | | | | | Admitting Desk | Tabitha Alicea [place], | | | | | Located on the | [place] [address] | | | | | floor [address] [facility] | [phone] | | | | | [address] | | | | | | [place], [place] | | | | | | [address] | | | +--------+---------+ + + + [...] follow up ludmila miller with a local plant technician in [place]. #Acute cardiogenic shock in the setting ofSTEMI [...] (noted on [facility] records). Patient on [place] 10/325 q8 as outpatient. Was receiving scheduled [...] Number [facility] Yes [address] [place] [address] [phone] Medina Roger RN 04/02/2017 11:31 Medina Roger RN, 04/02/2017 11:28 AM: Spoke with Latricia, 7 day auth # [id number] has been provided. Contacted Tanisha at facility [phone], arranging anticipated medicaid transport by stretcher at 2 pm today. Spoke with patient and souse concerning dc; they are both in agreement. Medina Roger RN, 04/02/2017 9:20 AM: Contacted Latricia Landry [phone] referencing auth# for SNF placement. Medina Roger RN, 04/01/2017 11:42 AM: Spoke with Malathi [phone], at facility admissions. Patient is accepted to facility. Prov ided information for information rn concurrent review with [facility] Fed Latricia Landry [phone], Tanisha moncada pursue auth and get back to me. F&MS working with patient and family to add Medicaid ser vices to benefits. When added patient will have travel benefit. CM contacted Shahab Holman re [employer] training. Tamia Van, RN, 03/30/2017 1:21 PM: Received VM from Emily Terrell CM with [facility] to send referral to this location . Referral made, awaiting response. Follow Up: Schedule the following appointment(s) when you get home Follow up with [facility] . Specialties: [facility] Facility, Intermediate Care Facility Contact information [address] [place] [phone] Follow up with LAUREN CHESTER MD. Go on 04/07/2017. Specialty: Cardiology Why: at 8:30 AM to establish Cardiology follow up Contact information [facility] [address] [address] Aria Rojas MD Division of Hospital Medicine [facility] [place] I spent 60 minutes on discharge activities on the day of discharge, including counseling of the patient and his regarding his discharge plan and in coordination of care on the dc rd with nursing, pharmacy, and Heart Failure.Electronically [...] will need [facility] follow up with plant technician in [place] on discharge - appr [facility] cardiology assistance with coordinating. [...] hematoma, but possibly some candidal infection/intertrigo. On [place] 10 Q8H as an outp atient. -Continue [...] Aria Rojas MD Division of Hospital Medicine [facility] Pager [phone] I spent 36 minutes on the patient [...] will need [facility] follow up with plant technician in [place] on discharge - appr [facility] cardiology assistance with coordinating. [...] hematoma, but possibly some candidal infection/interrigo. On [place] Q8H as an outpa tient. -Continue nystatin [...] discharge. -CM looking for skilled placement in [place] near patient's home; appreciate assistance At risk [...] Aria Rojas MD Division of Hospital Medicine [facility] [place] Pager [phone] I spent 36 minutes on the patient encounter today, >50% in counseling of the patient's on the above plan of care and in coordination of care on the arizmendi with nursing and Heart Fa ilure. Ariana Ivy DO - 03/30/2017 5:49 PM PDT CLINICAL HOSPITALIST SERVICE PROGRESS NOTE PATIENT'S NAME/MRN: Ron Mckeon/[id number] HOSPITAL DAY: #15 24-HOUR EVENTS & SUBJECTIVE: -patient complained of typical anginal chest pain and had STEMI code last night, anterior S T elevation on serial EKGs, given 325mg ASA, started on heparin drip (had been turned off fo r JAVON thrombus yesterday afternoon with warfarin therapeutic), patient went to the equipment operator/laborer -on angiography, interventionalists noted "patent stent traversing [...] daily - Patient will follow up with plant technician in [place] on discharge; appreciate cardiolo gy assistance with [...] stenosis (noted on o [facility] records, on [place] q8 as outpatient) Improved today -continue oxycodone [...] discharge. -CM looking for skilled placement in [place] near patient's home; appreciate assistance #Risk for [...] assistance Barriers for DC: delivery/approval of lifevest, [facility] bed Ariana Bose DO Vp Human Resourcesfinancial aids officer Clinical Hospitalist and Medicine Teaching Service Division of Hospital Medicine [facility] Pager [phone] [facility] DEPARTMENT: Hosp- [phone] Place of Service: - Date of Service: 03/26/2017 CSN: [id number] Modifiers:GC Resident Involved: Yes Suggested CPT: 61039 Subsequent Visit Detailed/High complexity 35 min Cristi [...] given continued elevated Tn, patient's significant recent IA, we activated the equipment operator/laborer. Patient received 325 mg ASA at bedside and was briefly on heparin which has since been disc ontinued. Per cardiology will continue daily 81 mg ASA, plavix and warfarin. Continue to t rend troponins as well. I spent 30 minutes with this patient with >50% of the time evaluating patient at the [facility] e on numerous occasions, evaluating studies and coordinating care w/ cardiology.Electronical ly signed by Ivette Chaudhry MD at 03/30/2017 6:24 AM Gerson Oseguera MD - 03/30/2017 4:31 AM PDTCardiology Preliminary Procedure Note (Full report to follow) Primary Care Provider: Jamal Guerrero MD Referring Provider: No Referring Provider Per Patient Inside Sales Advisor Staff: Katarina Ngo M.D. Procedure(s): Coronary Angiography [...] None Complications: None Hemostasis: Manual compression in equipment operator/laborer. Site: [facility] Recommendations: Patient Status: Inpatient Usual post cath care. Ariana Ivy D O - 03/29/2017 9:30 AM PDT CLINICAL HOSPITALIST SERVICE PROGRESS NOTE PATIENT'S NAME/MRN: Ron Mckeon/[id number] HOSPITAL DAY: #14 24-HOUR EVENTS & SUBJECTIVE: [...] 2 Units, 2 Units, subcutaneous, Q12H (Scheduled), Ginaar geno Alvarado MD, 2 Units at 03/28/172206 [...] stenosis (noted on o [facility] records, on [place] 10/ q8 as outpatient) -continue oxycodone 10mg [...] arm, midline left arm Ariana Bose DO Vp Human Resourcesfinancial aids officer Clinical Hospitalist and Medicine Teaching Service Division of Hospital Medicine [facility] Pager [phone] [facility] DEPARTMENT: Hosp- [phone] Place of Service: - Date of Service: 03/26/2017 CSN: [id number] Modifiers:GC Resident Involved: Yes Suggested CPT: 67038 Subsequent Visit Detailed/High complexity 35 min Ariana Ivy DO - 03/28/2017 8: 06 AM PDT CLINICAL HOSPITALIST SERVICE PROGRESS NOTE PATIENT'S NAME/MRN: Ron Mckeon/[id number] HOSPITAL DAY: #13 24-HOUR EVENTS & SUBJECTIVE: [...] stenosis (noted on o [facility] records, on [place] 10 q8 as outpatient) Improving L groin [...] lack of other good alternatives to narcotics #JVAON thrombus Noted on MARKY in the [place] [...] arm, midline left arm Ariana Bose DO Vp Human Resourcesfinancial aids officer Clinical Hospitalist and Medicine Teaching Service Division of Hospital Medicine [facility] Pager [phone] [facility] DEPARTMENT: Hosp- [phone] Place of Service: - Date of Service: 03/26/2017 CSN: [id number] Modifiers:GC Resident Involved: Yes Suggested CPT: 64884 Subsequent Visit Detailed/High complexity 35 min Ariana [...] lispro (HUMALOG) injection, , subcutaneous, QID, Jose aRmon Alvarado MD, 1 Units at 03/26/17 2209 [...] arm, midline left arm Ariana Bose DO Vp Human Resourcesfinancial aids officer Clinical Hospitalist and Medicine Teaching Service Division of Hospital Medicine [facility] Pager [phone] [facility] DEPARTMENT: Hosp- [id number] Place of Service: - Date of Service: 03/26/2017 CSN: [id number] Modifiers:GC Resident Involved: Yes Suggested CPT: 13872 Subsequent Visit Detailed/High complexity 35 min Chapis [...] arm, midline left arm Ariana Bose DO Vp Human Resourcesfinancial aids officer Clinical Hospitalist and Medicine Teaching Service Division of Hospital Medicine [facility] Pager [phone] [facility] DEPARTMENT: Hosp- [phone] Place of Service: - Date of Service: 03/26/2017 CSN: [id number] Modifiers:GC Resident Involved: Yes Suggested CPT: 80177 Subsequent Visit Detailed/High complexity 35 min Wan Cano MD - 03/25/2017 3:07 PM PDT . Cardiovascular Intensive Care Unit Attending Progress Note CVICU D2 Assigned #[id number] ICU Admission Reason Most Recent Value ICU [...] artery. ANY X2 placed in outs surinder equipment operator/laborer along with IABP. Arrived in cardiogenic shock, [...] Pager Mellisa Haji MD Admitting Provider Cardiology 03743 Zelalem Del Toro MD ICU PM Attending Anesthesiology 62482 Code Status Code Status Full Code The Advanced Care Note for this patient can be found under the notes tab in chart review. Quality section Reardon necessity reviewed: Hourly/Accurate measurement of urinary output for clinical manage ment of critically ill patients Wan Deleon MD, JOHN, ERVIN Cardiovascular Intensive Care Unit [address] [address] I have spent a total of 38 [...] noted. Date of Service: 03/25/2017 [facility] DEPARTMENT: ANE ICU CARDIAC Place of Service:- Inpatient CSN: [id number] Suggested Modifier: GC - Resident Involved Suggested CPT: TO SENIOR SHAREPOINT ARCHITECT Jose Ramon Khan MD - 03/24/2017 10:54 AM PDT . Cardiovascular Intensive Care Unit Team Progress Note CVICU D2 Assigned #[id number] ICU Admission Reason Most Recent Value ICU [...] artery. ANY X2 placed in outs surinder equipment operator/laborer along with IABP. Arrived in cardiogenic shock, [...] & Plan Patient went into VFib during equipment operator/laborer procedure at [facility]. Was shocked 17 times Targeted [...] edema. Patient was difficult intubation at outside equipment operator/laborer. -secretions improving, cough strong -s/p 7 days [...] Pager Mellisa Haji MD Admitting Provider Cardiology 04488 Zelalem Del Toro MD ICU PM Attending Anesthesiology 85393 The Advanced Care Note for this patient [...] Ramon Alvarado MD Author:Jose aRmon Alvarado MD [address] [address]Pdbkitvgsqrsww signed by Jose Ramon Alvarado MD at 03/24/2017 11:00 AM Wan Cano MD - 03/24/2017 9:47 AM PDTFormatting of this note might be diff erent from the original. Cardiovascular Intensive Care Unit Attending Progress Note CVICU D2 Assigned #[id number] ICU Admission Reason Most Recent Value ICU [...] artery. ANY X2 placed in outs surinder equipment operator/laborer along with IABP. Arrived in cardiogenic shock, [...] Pager Mellisa Haji MD Admitting Provider Cardiology 48939 Zelalem Del Toro MD ICU PM Attending Anesthesiology 28859 Code Status Code Status Full Code The Advanced Care Note for this patient can be found under the notes tab in chart review. Quality section Reardon necessity reviewed: Hourly/Accurate measurement of urinary output for clinical manage ment of critically ill patients Wan Deleon MD, JOHN, ERVIN Cardiovascular Intensive Care Unit [address] [address] I have spent a total of 42 [...] noted. Date of Service: 03/24/2017 [facility] DEPARTMENT: ANE ICU CARDIAC Place of Service:- Inpatient CSN: [id number] Suggested Modifier: GC - Resident Involved Suggested CPT: TO SENIOR SHAREPOINT ARCHITECT Author:Wan Deleon Md, MD [address] [id number] signed by Wan Deleon MD at 03/24/2017 9:49 AM PDTToTamia lieberman PA-C - 03/23/2017 11:54 PM PDTFormatting of this note might be diff erent from the original. Cardiovascular Intensive Care Unit Clinical Update Note Team: D2 Team Pager: [phone] Attending: Katey Pt Name: Ron Mckeon ID: Abbreviated HPI Abbreviated HPI / Daily Assessment Ron Mckeon is a 61 year old man with acute cardiogenic shock in the setting of acu te STEMI from thrombosed left main coronary artery. Initially had lesion in proximal LAD and distal LM, but then acutely thrombosed his left main coronary artery. ANY X2 placed in outs surinder equipment operator/laborer along with IABP. Arrived in cardiogenic shock, [...] Unit Team Progress Note CVICU D2 Assigned #[id number] ICU Admission Reason Most Recent Value ICU [...] artery. ANY X2 placed in outs surinder equipment operator/laborer along with IABP. Arrived in cardiogenic shock, [...] & Plan Patient went into VFib during equipment operator/laborer procedure at [facility]. Was shocked 17 times Targeted [...] edema. Patient was difficult intubation at outside equipment operator/laborer. -fevering nightly, cultures negative, WBC stable -secretions [...] Pager Mellisa Haji MD Admitting Provider Cardiology 88865 The Advanced Care Note for this patient [...] Ramon Alvarado MD Author:Jose Ramon Alvarado MD [address] [address] [place] [address]Bqpjcbistfwsso signed by Jose Ramon Alvarado MD at 03/23/2017 11:41 AM Wan Cano MD - 03/23/2017 9:51 AM PDTFormatting of this note might be diff erent from the original. Cardiovascular Intensive Care Unit Attending Progress Note CVICU D2 Assigned #[id number] ICU Admission Reason Most Recent Value ICU [...] artery. ANY X2 placed in outs surinder equipment operator/laborer along with IABP. Arrived in cardiogenic shock, [...] Pager Mellisa Haji MD Admitting Provider Cardiology 04442 Code Status Code Status Full Code The Advanced Care Note for this patient can be found under the notes tab in chart review. Quality section A-Line necessity reviewed: Plan to DC today Reardon necessity reviewed: Hourly/Accurate measurement of urinary output for clinical manage ment of critically ill patients Currently at risk for: delirium, stroke, IA, arrythmia, tamponade, PE, respiratory failure, ARDS, aspiration, AYLIN / ARF, coagulopathy, DVT, stress ulcers, sepsis, BONIFACIO, electrolyte per turbations, malnutrition, deconditioning and decubiti. Wan Deleon MD, JOHN, ERVIN Cardiovascular Intensive Care Unit [address] [address] I have spent a total of 44 [...] noted. Date of Service: 03/23/2017 [facility] DEPARTMENT: [facility] ICU CARDIAC Place of Service:- Inpatient CSN: [id number] Suggested Modifier: GC - Resident Involved Suggested CPT: TO SENIOR SHAREPOINT ARCHITECT Tamia De La Paz PA-C - 03/22/2017 7:58 PM PDT . Cardiovascular Intensive Care Unit Clinical Update Note Team: D2 Team Pager: [phone] Attending: Abdulaziz Merrill Name: Ron Mckeon ID: [...] Unit Attending Progress Note CVICU D2 Assigned #[id number] ICU Admission Reason Most Recent Value ICU [...] long tobacco abuse history, presenting with acute IA and STEMI, resu ltant cardiogenic shock refractory [...] Pager Mellisa Haji MD Admitting Provider Cardiology 02057 Code Status Code Status Full Code Quality section A-Line necessity reviewed: Bamn-gl-bmhc blood pressure monitoring Reardon necessity reviewed: Hourly/Accurate [...] Date of Service: 03/22/2017 Author:Anurag Ashby MD [address] [id number] signed by Anurag Ashby MD at 03/22/2017 11:07 AM P Macho Sellers MD - 03/22/2017 11:00 AM PDT Cardiovascular Intensive Care Unit Team Progress Note CVICU D2 Assigned #[id number] ICU Admission Reason Most Recent Value ICU [...] & Plan Patient went into VFib during equipment operator/laborer procedure at [facility]. Was shocked 17 times Targeted [...] edema. Patient was difficult intubation at outside equipment operator/laborer. -vanc zosyn stopped 03/17 -fever 38.3 last [...] Pager Mellisa Haji MD Admitting Provider Cardiology 55821 This patient does not have an Advanced Care Note for this Admission. Please use the Goal of care section of your ICU navigator to document the advanced care discussion. Quality section A-Line necessity reviewed: Kneh-vb-fjxi blood pressure monitoring Reardon necessity reviewed: Hourly/Accurate measurement of urinary output for clinical manage ment of critically ill patients FAST HUG Feeding: Tube Feeds: Replete @ 55 mL/hr Analgesia: APAP, hydromorphone PRN Sedation: N/A Thromboprophylaxis: Heparin infusion Head of Bed: Head of Bed >30 degrees Ulcer Prophylaxis: Famotidine Glycemic Control: insulin infusion Created by Macho Gaytan MD Author:Macho Gaytan MD [address] [id number] signed by Macho Gaytan MD at 03/23/2017 12:35 PM PDTT Tamia leon PA-C - 03/21/2017 7:02 PM PDTFormatting of this note might be different f rom the original. Cardiovascular Intensive Care Unit Clinical Update Note Team: D2 Team Pager: [phone] Attending: Abdulaziz Merrill Name: Ron Mckeon ID: [...] Opens eyes, nods head. Follows commands for cage tender and Plan: Hospital Problems Priority POA Head/Neck [...] Unit Team Progress Note CVICU D2 Assigned #[id number] ICU Admission Reason Most Recent Value ICU [...] & Plan Patient went into VFib during equipment operator/laborer procedure at [facility]. Was shocked 17 times Targeted [...] edema. Patient was difficult intubation at outside equipment operator/laborer. -vanc zosyn stopped 03/17 -fever 38.3 last [...] Pager Mellisa Haji MD Admitting Provider Cardiology 33925 This patient does not have an Advanced Care Note for this Admission. Please use the Goal of care section of your ICU navigator to document the advanced care discussion. Quality section A-Line necessity reviewed: Yxmf-ad-ionx blood pressure monitoring CVC necessity reviewed: Hemodynamic [...] by Macho Gaytan MD Author:Macho Gaytan MD [address] [address]Cqjqfznifyqxhz signed by Macho Gaytan MD at 03/21/2017 1:43 PM PDTM Anurag coates MD - 03/21/2017 12:22 PM PDT Cardiovascular Intensive Care Unit Attending Progress Note CVICU D2 Assigned #[id number] ICU Admission Reason Most Recent Value ICU [...] long tobacco abuse history, presenting with acute IA and STEMI, resu ltant cardiogenic shock refractory [...] Pager Mellisa Haji MD Admitting Provider Cardiology 51833 Code Status Code Status Full Code Quality section A-Line necessity reviewed: Nvgd-kq-ngfp blood pressure monitoring CVC necessity reviewed: Plan [...] Date of Service: 03/21/2017 Author:Anurag Ashby MD [address] [address] [place] [address]Edfpyniboqlplr signed by Anurag Ashby MD at 03/21/2017 12:22 PM P Jose Ramon Coburn MD - 03/20/2017 12:36 PM PDTFormatting of this note might be differen t from the original. Cardiovascular Intensive Care Unit Team Progress Note CVICU D2 Assigned #[id number] ICU Admission Reason Most Recent Value ICU [...] & Plan Patient went into VFib during equipment operator/laborer procedure at [facility]. Was shocked 17 times Targeted [...] edema. Patient was difficult intubation at outside equipment operator/laborer. -vanc zosyn stopped 03/17 -fever 38.3 last [...] Pager Mellisa Haji MD Admitting Provider Cardiology 25944 Quality section A-Line necessity reviewed: Phfq-ez-kuen blood pressure monitoring CVC necessity reviewed: Hemodynamic [...] Ramon Alvarado MD Author:Jose Ramon Alvarado MD [address] [address]Kwgngtyotsrtro signed by Jose Ramon Alvarado MD at 03/20/2017 12:49 PM PDTMoulton, Anurag Soni MD - 03/20/2017 12:18 PM PDTFormatting of this note might be differen t from the original. Cardiovascular Intensive Care Unit Attending Progress Note CVICU D2 Assigned #[id number] ICU Admission Reason Most Recent Value ICU [...] long tobacco abuse history, presenting with acute IA and STEMI, resu ltant cardiogenic shock refractory [...] Pager Mellisa Haji MD Admitting Provider Cardiology 87998 Code Status Code Status Full Code Quality section A-Line necessity reviewed: Yhio-pd-edoj blood pressure monitoring CVC necessity reviewed: Medication [...] Date of Service: 03/20/2017 Author:Anurag Ashby MD [address] [address]Styngubqghzkyt signed by Anurag Ashby MD at 03/20/2017 12:18 PM P Raul Conte MD - 03/19/2017 11:01 PM PDTFormatting of this note might be different fro m the original. Cardiovascular Intensive Care Unit Attending Progress Note CVICU D2 Assigned #[id number] ICU Admission Reason Most Recent Value ICU [...] long tobacco abuse history, presenting with acute IA and STEMI, resu ltant cardiogenic shock refractory [...] Pager Mellisa Haji MD Admitting Provider Cardiology 67780 Code Status Code Status Full Code Quality section A-Line necessity reviewed: Zibt-fw-rsrs blood pressure monitoring CVC necessity reviewed: Hemodynamic [...] Date of Service: 03/19/2017 Author:Raul Wei MD [address] [address] [place] [address]Bpwhtfxqunqgsn signed by Raul Wei MD at 03/19/2017 11:01 PM PD TMillerJose Ramon MD - 03/19/2017 4:49 PM PDT Cardiovascular Intensive Care Unit Team Progress Note CVICU D2 Assigned #[id number] ICU Admission Reason Most Recent Value ICU [...] & Plan Patient went into VFib during equipment operator/laborer procedure at [facility]. Was shocked 17 times Targeted [...] edema. Patient was difficult intubation at outside equipment operator/laborer. -vanc zosyn stopped 03/17 -fever 38.3 03/17 [...] Pager Mellisa Haji MD Admitting Provider Cardiology 32174 Quality section A-Line necessity reviewed: Cfwl-hw-jkkz blood pressure monitoring CVC necessity reviewed: Hemodynamic monitoring Reardon necessity reviewed: Hourly/Accurate measurement of urinary output for clinical manage ment of critically ill patients FAST HUG Feeding: TFs Analgesia: multimodal Sedation: propofol Thromboprophylaxis: Heparin infusion Head of Bed: Head of Bed >30 degrees Ulcer Prophylaxis: protonix Glycemic Control: insulin infusion Created by Jose Ramon Alvarado MD Author:Jose Ramon Alvarado MD [address] [address]Rrrbycpfrfvpgk signed by Jose Ramon Alvarado MD at 03/19/2017 4:54 PM Lee Fernandez MD - 03/19/2017 2:22 PM PDTFormatting of this note might be different fr om the original. . Extracorporeal Life Support Service Daily Progress Note Pager #[phone] Type: Veno-Arterial (CPT 25073 or [id number]) Date of insertion: 03/15/2017 Diagnosis:Cardiogenic shock Dressing [...] Unit Attending Progress Note CVICU D2 Assigned #[id number] ICU Admission Reason Most Recent Value ICU [...] long tobacco abuse history, presenting with acute IA and STEMI, resu ltant cardiogenic shock refractory [...] Pager Mellisa Haji MD Admitting Provider Cardiology 61473 Code Status Code Status Full Code Quality section A-Line necessity reviewed: Uxof-vo-xkjs blood pressure monitoring CVC necessity reviewed: Medication [...] Date of Service: 03/19/2017 Author:Anurag Ashby MD [address] P DTJose Ramon Alvarado MD - 03/18/2017 12:56 PM PDTFormatting of this note might be differen t from the original. Cardiovascular Intensive Care Unit Team Progress Note CVICU D2 Assigned #[id number] ICU Admission Reason Most Recent Value ICU [...] & Plan Patient went into VFib during equipment operator/laborer procedure at [facility]. Was shocked 17 times Targeted [...] edema. Patient was difficult intubation at outside equipment operator/laborer. -vanc zosyn stopped today Abnormal CK Unknown [...] Pager Mellisa Haji MD Admitting Provider Cardiology 96735 Quality section A-Line necessity reviewed: Zrgr-be-lqmz blood pressure monitoring CVC necessity reviewed: Hemodynamic monitoring Reardon necessity reviewed: Hourly/Accurate measurement of urinary output for clinical manage ment of critically ill patients FAST HUG Feeding: trickle feeds Analgesia: multimodal Sedation: propofol Thromboprophylaxis: Heparin infusion Head of Bed: Head of Bed >30 degrees Ulcer Prophylaxis: nexium Glycemic Control: insulin infusion Created by Jose Ramon Alvarado MD Author:Jose Ramon Alvarado MD [address] [address]Tospxjjgxsrvyx signed by Jose Ramon Alvarado MD at 03/18/2017 1:27 PM PDTMoulton, Anurag Soni MD - 03/18/2017 11:56 AM PDTFormatting of this note might be differen t from the original. Cardiovascular Intensive Care Unit Attending Progress Note CVICU D2 Assigned #[id number] ICU Admission Reason Most Recent Value ICU [...] long tobacco abuse history, presenting with acute IA and STEMI, resu ltant cardiogenic shock refractory [...] Pager Mellisa Haji MD Admitting Provider Cardiology 01020 Code Status Code Status Full Code Quality section A-Line necessity reviewed: Qdck-xj-vspr blood pressure monitoring CVC necessity reviewed: Medication [...] Date of Service: 03/18/2017 Author:Anurag Ashby MD [address] [address]Wzglmmaxsutckj signed by Anurag Ashby MD at 03/18/2017 11:59 AM Lee Prince MD - 03/18/2017 11:37 AM PDTFormatting of this note might be different from nissa suh original. . Extracorporeal Life Support Service Daily Progress Note Pager #[phone] Type: Veno-Arterial (CPT 82642 or 14[address]) Diagnosis:Cardiogenic shock Dressing changed: no Dressing Changed [...] Life Support Service Daily Progress Note Pager #[phone] Type: Veno-Arterial (CPT 60829 or 91034) Date of insertion: 03/15/2017 Diagnosis:Cardiogenic shock Dressing [...] Unit Attending Progress Note CVICU D2 Assigned #[id number] ICU Admission Reason Most Recent Value ICU [...] long tobacco abuse history, presenting with acute IA and STEMI, resu ltant cardiogenic shock refractory [...] Pager Mellisa Haji MD Admitting Provider Cardiology 12056 Quality section A-Line necessity reviewed: Bili-ve-qlyv blood pressure monitoring CVC necessity reviewed: Rapid [...] Date of Service: 03/17/2017 Author:Raul Wei MD [address] [place] [address]Qxuqfxehfkqiwl signed by Raul Wei MD at 03/17/2017 9:20 PM PD Anurag Kaba MD - 03/17/2017 1:58 PM PDTFormatting of this note might be different fro m the original. Cardiovascular Intensive Care Unit Attending Progress Note CVICU D2 Assigned #[id number] ICU Admission Reason Most Recent Value ICU [...] long tobacco abuse history, presenting with acute IA and STEMI, resu ltant cardiogenic shock refractory [...] Pager Mellisa Haji MD Admitting Provider Cardiology 09627 Quality section A-Line necessity reviewed: Cipr-bd-nxjg blood pressure monitoring CVC necessity reviewed: Medication [...] Date of Service: 03/17/2017 Author:Anurag Ashby MD [address] [address]Opopbvnlzdrxfc signed by Anurag Ashby MD at 03/17/2017 2:00 PM P Mauri Calderon - 03/17/2017 1:01 PM PDTTransthoracic echocardiogram completed. Final r eport to follow. Teddy Ibrahim DO, MS - 03/17/2017 10:00 AM PDT Cardiovascular Intensive Care Unit Team Progress Note CVICU D2 Assigned #[id number] ICU Admission Reason Most Recent Value ICU [...] & Plan Patient went into VFib during equipment operator/laborer procedure at [facility]. Was shocked 17 times Targeted [...] edema. Patient was difficult intubation at outside equipment operator/laborer. -vanc zosyn stopped today Abnormal CK Unknown [...] Pager Mellisa Haji MD Admitting Provider Cardiology 47100 This patient does not have an Advanced Care Note for this Admission. Please use the Goal of care section of your ICU navigator to document the advanced care discussion. Quality section A-Line necessity reviewed: Cubb-mx-sydg blood pressure monitoring CVC necessity reviewed: Hemodynamic monitoring Readron necessity reviewed: Hourly/Accurate measurement of urinary output for clinical manage ment of critically ill patients FAST HUG Feeding: Tube Feeds Analgesia: apap, oxy, hm Sedation: propofol Thromboprophylaxis: Heparin infusion Head of Bed: Head of Bed Flat Ulcer Prophylaxis: Pantoprazole Glycemic Control: insulin infusion Created by Teddy Kee Do, MS [facility] DEPARTMENT: [facility] ICU CARDI[facility] Place of Service:- Inpatient CSN: [id number] Suggested Modifier: GC - Resident Involved Suggested CPT: TO SENIOR SHAREPOINT ARCHITECT Author:Teddy Kee Do, MS [address] [address]Wlalbrpjfeolvx signed by Teddy Kee DO, MS at 03/17/2017 6:35 PM PDTRaul Wei MD - 03/16/2017 7:38 PM PDT Cardiovascular Intensive Care Unit Attending Progress Note CVICU D2 Assigned #[id number] ICU Admission Reason Most Recent Value ICU [...] long tobacco abuse history, presenting with acute IA and STEMI, resu ltant cardiogenic shock refractory [...] Pager Mellisa Haji MD Admitting Provider Cardiology 42737 Quality section A-Line necessity reviewed: Dzwn-ut-wpiz blood pressure monitoring CVC necessity reviewed: Rapid [...] Date of Service: 03/16/2017 Author:Raul Wei MD [facility] [address] 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 Was shocked 17 times Now [...] edema. Patient was difficult intubation at outside equipment operator/laborer. -bridget retana for now Physical Exam vitals [...] Pager Mellisa Haji MD Admitting Provider Cardiology 78331 Quality section A-Line necessity reviewed: Ecbw-au-snen blood pressure monitoring CVC necessity reviewed: Hemodynamic [...] Ramon Alvarado MD Author:Jose Ramon Alvarado MD [address] [address]Thysdkxocciglu signed by Jose Ramon Alvarado MD at [...] Unit Attending Progress Note CVICU D2 Assigned #[id number] ICU Admission Reason Most Recent Value ICU [...] ICU Day #2 after being transferred from [place] in [place] in acute cardiogenic archie ck following an [...] Pager Mellisa Haji MD Admitting Provider Cardiology 79699 Quality section A-Line necessity reviewed: Pmed-xs-zvko blood pressure monitoring CVC necessity reviewed: Hemodynamic [...] Date of Service: 03/16/2017 Author:Anurag Ashby MD [address] [address]Jxajmlgqsznxpl signed by Anurag Ashby MD at 03/16/2017 1:23 PM Lee Prince MD - 03/16/2017 9:41 AM PDTFormatting of this note might be different from t vikash original. . Extracorporeal Life Support Service Daily Progress Note Pager #[phone] Type: Veno-Arterial (CPT 44054 or 79[address]) Diagnosis:Cardiogenic shock Dressing changed: no Dressing Changed [...] Clinical Update Note Team: D2 Team Pager: [phone] Attending: Abdulaziz Pt Name: Ron Mckeon ID: [...] Service: 03/16/2017 Mirna Berumen PA-C [facility] DEPARTMENT: [facility] ICU CARDI[facility] Place of Service:- Inpatient CSN: [id number] Suggested Modifier: None Suggested CPT: TO SENIOR SHAREPOINT ARCHITECT Mirna Berumen PA-C Everardo Valladares MD - 03/15/2017 9:04 PM PDT Cardiovascular Intensive Care Unit Attending Progress Note CVICU D2 Assigned #[id number] ICU Admission Reason Most Recent Value ICU Admission reason Cardiogenic Shock filed at 03/15/2017 1531 Hospital admission dx: left anterior descending artery occlusion, needs cabg Days in ICU Days in Hospital Medical Decision Making ICU Day #1 after being transferred from [place] in [place] in acute cardiogenic archie ck following an [...] Pager Mellisa Haji MD Admitting Provider Cardiology 69835 Quality section A-Line necessity reviewed: Mryp-at-onfj blood pressure monitoring CVC necessity reviewed: Hemodynamic [...] and the recent imaging available. Seen with PA/FILM NUMBERER Winston Cole. Please see their note for details. I reviewed the documented findings, all data and the recent imaging available. Date of Service: 03/15/2017 Author:Everardo Cintron MD [address] [id number] signed by Everardo Cintron MD at 03/15/2017 9:[address] - 03/15/2017 2:11 PM PDTTransthoracic echocardiogram completed. Final r eport to follow. atrick Ruiz MD,MPH - 03/15/2017 2:00 PM PDT . Extracorporeal Life Support Service Consult Service Note Pager #[phone] Date: 03/15/17 Author: Patrick Ruiz MD,MPH Consulting Attending: Mellisa Haji MD Reason for Consult: [facility] ECMO Consideration HPI: 61 year old male who presents this afternoon to [facility] in acute cardiogenic shock second maciej to STEMI / thrombosed L main coronary artery. He was transferred from [place]. His symptoms started this morning around 3am and was seen in [place], [place]. He was diagnosed w ith an anterior STEMI and transferred to the equipment operator/laborer in [place], [place]. He was found to h ave [...] pressors (epinephrine and dopamine). On arrival to [facility], he was in profound cardiogenic shock and hypoxic. His MAP was in the 40s. He was tach ycardic into the 150s. IABP was increased to 1:2. Past Medical History: Past Medical History: Diagnosis Date Cardiogenic shock ([facility]) 03/15/2017 Coronary artery disease 03/15/2017 [...] from cardiogenic shock. Patrick Ruiz MD, MPH nuclear medicine medical director Trauma, Critical Care & Acute Care Surgery [facility] onies, Patrick Sexton MD,MPH - 03/15/2017 1:48 PM PDT . . Extracorporeal Life Support Service Initiation Note Pager #[phone] Date of service: 03/15/2017 Author: Patrick Ruiz Md,Mph ECMO Type: Veno-Arterial (CPT 63228 [place] 650[address]) Oxygenation index FiO2: 100 MAP: 22 Diagnosis:Cardiogenic [...] | + +--------+ + + + | AS-AA-UJP-HB,POC RT | Routin | 03/19/2017 | ST [...] | + +--------+ + + + | IN ECMO REV | Routin | 03/19/2017 | [...] +---+--------+ + +--------+ + + + | EV-QF-NZH-HB,POC RT | Routin | 03/19/2017 | ST [...] | + +--------+ + + + | WI-UQ-KKZ-HB,POC RT | Routin | 03/19/2017 | ST elevation | Results for this | | | e | 10:06 AM | myocardial | procedure are in the | | | | PDT | infarction involving | results section. | | | | | left main coronary | | | | | | artery (HCC) | | + +--------+ + + + | WF-JI-RUE-HB,POC RT | Routin | 03/19/2017 | ST [...] | + +--------+ + + + | PV-FC-VLX-HB,POC RT | Routin | 03/17/2017 | ST [...] | + +--------+ + + + | TT-OO-CQZ-HB,POC RT | Routin | 03/16/2017 | ST [...] | + +--------+ + + + | OG-SZ-ENY-HB,POC RT | Routin | 03/16/2017 | ST [...] | + +--------+ + + + | DB-LN-QTT-HB,POC RT | Routin | 03/15/2017 | ST [...] | + +--------+ + + + | ZW-EA-XDR-HB,POC RT | Routin | 03/15/2017 | ST [...] | + +--------+ + + + | QM-JO-NGE-HB,POC RT | Routin | 03/15/2017 | ST [...] Height: 175 cm Weight: 89 kgBSA: 2.05 [id number] PHYSICIAN:Katarina Ngo, | | .FELLOW:Gerson Mejias M.D. [...] right coronary angiography.COMPLICATIONS:None.TECHNIQUE:Right femoral artery | | 6-Cameroonian 10 cm Renner sheath, 6-Cameroonian XB 3.5 guide catheter, 5-Cameroonian JR4 | | catheter.DESCRIPTION OF PROCEDURE:Informed consent [...] modified Seldinger technique and a | | 5-Cameroonian micropuncture system, a 6-Cameroonian 10 cm Renner sheath was placed in the right | | femoral artery. A 6-Cameroonian XB 3.5 guide catheter was inserted into the ascending aorta | | over a guidewire. The guidewire was removed. The catheter was aspirated and flushed. | | The left coronary system was selectively engaged and imaged in multiple projections. A | | 5-Cameroonian Kymberly right 4 catheter was advanced to [...] DOSE AREA | | PRODUCT: 3749 cGy [id number]:Aortic pressure 87/15, mean aortic pressure 63, heart [...] 03/30/2017 04:50:01DT: | | 03/30/2017 08:34:34Job #: [id number] | |extending from it into the LAD. [...] |YDT/MODL | | | | | | /[id number] | + + CAPILLARY BLOOD GLUCOSE (NO [...] + + + | [facility] | [address] | [place], [place] | | | JULIANN SILVA OF ALEX[facility] | [address] | [address] | | | TESTS | | | [...] [facility] | [address] | [place] [address] | | | SERVICES, CORE | PARK [...] [facility] | [address] | [place] [address] | | | SERVICES, CORE | PARK [...] [facility] | [address] | [place] [address] | | | SERVICES, CORE | PARK [...] | | | LABORATORY | | | [place] | | | SERVICES, | | | [...] | + + + + + | [facility] | [address] | [place] [address] | | | SERVICES, CORE | TABITHA [...] | + + + + + | [facility] | [address] | [place] [address] | | | SERVICES, CORE | PARK [...] [facility] | [address] | [place] [address] | | | ИРИНА ANTOINE | TABITHA [...] + + + | [facility] | [address] | [place], [place] | | | RICARDO POINT OF CARE | [address] | [address] | | | TESTS | | | [...] [facility] | [address] | [place], [place] | | | R[facility]ARDO POINT OF CARE | [address] | [address] | | | TESTS | | | [...] ANA [facility] | [address] | [place], [place] | | | R[place]ARDO POINT OF CARE | [address] | [address] | | | TESTS | | | [...] + | [facility] | [address] | [place] [address] | | | SERVICES, CORE | PARK [...] | | | LABORATORY | | | [place] CIT[employer]EN | | | SERVICES, | | | [...] [facility] | [address] | [place] [address] | | | SERVICES, CORE | TABITHA [...] HOSPITAL LAB[facility]ORY | [address] | [place] [address] | | | ARASH, ИРИНА | [address] | | | + + + + + MAGNESIUM, PLASMA (04/01/2017 3:43 AM PDT) + +-------+ + + + | Component | Value | Ref Range | Performed | Pathologist | | | | | At | Signature | + +-------+ + + + | MAGNESIUM,P | 2.2 | 1.8 - 2.5 mg/dL | [facility] | | | FEI | | | [...] HOSPITAL LAB[facility] | [address] | [place] [address] | | | SERVICES, CORE | PARK [...] [facility] | [address] | [place], [place] | | | JULIANN SILVA OF CARE | [address] | [address] | | | TESTS | | | [...] [facility] | [address] | [place], [place] | | | JULIANN SILVA OF CARE | [facility] | [address] | | | TESTS | | | [...] [facility] | [address] | [place], [place] | | | JULIANN SILVA OF CARE | [address] | [address] | | | TESTS | | | [...] [facility] | [address] | [place], [place] | | | GURINDER SILVA | [facility] | [address] | | | TESTS | | | [...] [facility] | [address] | [place] [address] | | | ИРИНА ANTOINE | TABITHA [...] | | | LABORATORY | | | [place] CIT[employer] | | | SERVICES, | | | [...] | + + + + + | [facility] | [address] | [place] [address] | | | SERVICES, CORE | PARK [...] | + + + + + | [facility] | [address] | [place] [address] | | | SERVICES, CORE | [address] | | | + + + + + MAGNESIUM, PLASMA (03/31/2017 3:45 AM PDT) + +-------+ + + + | Component | Value | Ref Range | Performed | Pathologist | | | | | At | Signature | + +-------+ + + + | MAGNESIUM,P | 2.4 | 1.8 - 2.5 mg/dL | [facility] | | | DENISEMA | | | [...] HOSPITAL LAB[facility]ORY | [address] | [place] [address] | | | ARASH, CORE | PARK [...] [facility] | [address] | [place] [address] | | | SERVICES, CORE | TABITHA [...] - [facility] | [address] | [place], [place] | | | RICARDO POINT OF CARE | [address] | [address] | | | TESTS | | | [...] | | | LABORATORY | | | [place] CIT[employer] | | | SERVICES, | | | [...] HOSPITAL [facility] | [address] | [place] [address] | | | ИРИНА ANTOINE | TABITHA [...] DEPT OF | [address] | [place], [place] | | | CARDIOLOGY | [address] | [address] | | + + + + + [...] [facility] | [address] | [place], [place] | | | RICARDO POINT OF CARE | [address] | [address] | | | TESTS | | | [...] | | | LABORATORY | | | [place] CIT[employer]EN | | | SERVICES, | | | [...] + + | [facility] | [address] | [place] [address] | | | SERVICES, CORE | PARK [...] LABORATORY | [address] | [place] [address] | | | SERVICES, CORE | TABITHA [...] rmed At | + +------ + | [facility] | [facility] | | [facility] Adult Echocardiography | CARDI OLOGY | | Laboratory [address] [place] [address], | | | [place] [address] Pt Name: | | | RON MCKEON Study Date/Time 03/30/2017 / 10:44:00 | | | AMMRN: [id number] Most recent | | | prior: 03/19/17cc #: [id number] No. previous | | | echos: 3DOB: 1955 61 years Heart | | | Rate: 70 bpmHeight: 68.0 in | | | Blood Pressure: 100/55 mm/HgWeight: 197.0 | | | lb Gender: | | | MBSA: 2.03 m2 Order | | | ID: [id number] Wooling Machine Operator: Shahab Sutton | | | RDCSSonographer 2: Karly Gayle Referring Provider: Ariana | | | [facility] Location: 11KModalities Performed: 2D, Color flow, [...] Tn, | | | patient's significant recent IA, we activated the equipment operator/laborer. Patient | | | history has been [...] Report electronically signed by: | | | [id number] Jordon Neville MD (03/30/2017, 2:04:56 PM) Final | | | | | |Wall Scoring: | | | | | | | | |Report electronically signed by: [id number] Jordon Neville MD (03/30/2017, 2:04:56 PM) | | | | | | | | | | | | Final | | + +------ + + + | Procedure Note | + + | Interface, Cardiology Results - 03/30/2017 2:04 PM [facility] | | [facility] Echocardiography Laboratory [address] [place] [address] | | [place], [place] [address] Pt Name: RON Chaudhary | | MIKE Study Date/Time 03/30/2017 / 10:44:00 AMMRN: [id number] Most | | recent prior: 03/19/17 #: [id number] No. previous echos: 3DOB: | | 1955 61 years Heart Rate: 70 bpmHeight: 68.0 in Blood | | Pressure: 100/55 mm/HgWeight: 197.0 lb Gender: MBSA: | | 2.03 m2 Order ID: [id number] Wooling Machine Operator: Shahab Sutton | | RDCSSonographer 2: [...] elevated Tn, | | patient's significant recent IA, we activated the equipment operator/laborer. Patient history has been | | obtained [...] Scoring: Report | | electronically signed by: [id number] Jordon Neville MD (03/30/2017, 2:04:56 PM) Final [...] | | | |Report electronically signed by: [id number] Jordon Neville MD (03/30/2017, 2:04:56 PM) | | | | | | | | Final | + + + + + + + | Performing | Address | City/State/Zipcode | Phone Number | | Organization | | | | + + + + + | [facility] | [address] [facility] | [place], [place] | | | CARDIOLOGY | [address] | [address] | | + + + + + [...] [facility] | [address] | [place], [place] | | | RICARDO POINT OF CARE | [address] | [address] | | | TESTS | | | [...] | + + + + + | [facility] | [address] | [place] [address] | | | SERVICES, CORE | TABITHA [...] [facility]IA | [address] | [place], [place] | | | JULIANN SILVA OF ALEXIS | [address] | [address] | | | TESTS | | | [...] + | [facility] | [address] | [place], [place] | | | CARDIOLOGY | [address] | [address] | | + + + + + [...] | | | LABORATORY | | | [place] CIT[employer]EN | | | SERVICES, | | | [...] [facility] | [address] | [place] [address] | | | SERVICES, CORE | PARK [...] [facility] | [address] | [place] [address] | | | SERVICES, CORE | TABITHA [...] HOSPITAL LABORATORY | [address] | [place] [address] | | | SERVICES, CORE | [address] | | | + + + + + 12 LEAD ECG (03/30/2017 2:47 AM PDT) + + + + + + | Component | Value | Ref Range | Performed | Pathologist | | | | | At | Signature | + + + + + + | VENTRICULAR | 93 | bpm | [facility] | | | RATE | | [...] DEPT OF | [address] | [place], [place] | | | CARDIOLOGY | [address] | [address] | | + + + + + [...] DEPT OF | [address] | [place], [place] | | | CARDIOLOGY | [address] | [address] | | + + + + + [...] | + + + + + | [facility] | [address] | [place] [address] | | | SERVICES, CORE | PARK [...] | + + + + + | [facility] | [address] | [place] [address] | | | SERVICES, CORE | TABITHA [...] HOSPITAL LABORATORY | [address] | [place] [address] | | | ARASH, ИРИНА | PARK [...] [facility] | [address] | [place] [address] | | | SERVICES, CORE | PARK [...] MARIA | [address] | [place], [place] | | | JULIANN SILVA OF [facility] | [address] | [address] | | | TESTS | | | [...] + + + + | [facility] | [address] | [place] [address] | | | SERVICES, CORE | TABITHA [...] [facility] OF | [address] | [place], [place] | | | CARDIOLOGY | [address] | [address] | | + + + + + [...] - [facility] | [address] | [place] | | | RICARDO POINT OF CARE | [address] | [address] | | | TESTS | | | [...] [facility] | [address] | [place] | | | RICARDO POINT OF [facility] | [address] | [address] | | | TESTS | | | [...] | + + + + + | [facility] | [address] | [place] [address] | | | SERVICES, CORE | TABITHA [...] [facility] | [address] | [place], [place] | | | RICARDO POINT OF CARE | [address] | [address] | | | TESTS | | | [...] [facility] | [address] | [place] [address] | | | SERVICES, CORE | PARK [...] | | | LABORATORY | | | [place] CITIZ[place] | | | SERVICES, | | | [...] | + + + + + | [facility] | [address] | [place] [address] | | | SERVICES, CORE | TABITHA [...] ranges for full anticoagulation: INR for | [facility] | | Venous Thromboembolism (2.0 - 3.0) INR INR | LABORATORY | | for most patients with mech. valves (2.5 - 3.5) INR | ARASH, CORE | + + + + + + + + | Performing | Address | City/State/Zipcode | Phone Number | | Organization | | | | + + + + + | [facility] | [address] | [place] [address] | | | ARASH, ИРИНА | TABITHA [...] HOSPITAL LABORATORY | [address] | [place] [address] | | | SERVICES, CORE | TABITHA [...] | + + + + + | [facility] | [address] | [place] [address] | | | ARASH, ИРИНА | TABITHA [...] HOSPITAL LABORATORY | [address] | [place] [address] | | | SERVICES, CORE | TABITHA [...] [facility] | [address] | [place], [place] | | | JULIANN SILVA OF ALEXIS | [address] | [address] | | | TESTS | | | [...] [facility]NA [facility] | [address] | [place] | | | JULIANN SILVA OF [facility] | [facility] | [address] | | | TESTS | | | [...] | | | LABORATORY | | | [place] | | | SERVICES, | | | [...] HOSPITAL LABORATORY | [address] | [place] [address] | | | ARASH, ИРИНА | PARK [...] [facility] | [address] | [place] [address] | | | SERVICES, CORE | PARK [...] | | | LABORATORY | | | [place] CIT[employer]EN | | | SERVICES, | | | [...] | + + + + + | [facility] | [address] | [place] [address] | | | SERVICES, CORE | TABITHA [...] [facility] | [address] | [place], [place] | | | JULIANN SILVA OF CARE | [address] | [address] | | | TESTS | | | [...] [facility] | [address] | [place] | | | JULIANN SILVA OF CARE | [address] | [address] | | | TESTS | | | [...] + + | [facility] | [address] | [place] [address] | | | SERVICES, ИРИНА | TABITHA [...] | | | LABORATORY | | | [place] CIT[employer]EN | | | SERVICES, | | | [...] + + | [facility] | [address] | [place] [address] | | | SERVICES, CORE | PARK [...] | + + + + + | [facility] | [address] | [place] [address] | | | SERVICES, CORE | PARK [...] | + + + + + | [facility] | [address] | [place] [address] | | | SERVICES, CORE | [address] | | | + + + + + MAGNESIUM, PLASMA (03/28/2017 4:13 AM PDT) + +---------+ + + + | Component | Value | Ref Range | Performed | Pathologist | | | | | At | Signature | + +---------+ + + + | MAGNESIUM,P | 2.7 (H) | 1.8 - 2.5 mg/dL | [facility] | | | DENISEMA | | [...] HOSPITAL LABORATORY | [address] | [place] [address] | | | SERVICES, CORE | PARK [...] [facility] | [address] | [place] | | | JULIANN SILVA OF [facility] | [address] | [address] | | | TESTS | | | [...] [facility] | [address] | [place] | | | RICARDO POINT OF CARE | [address] | [address] | | | TESTS | | | [...] MARIA | [address] | [place], [place] | | | JULIANN SILVA OF [facility] | [address] | [address] | | | TESTS | | | [...] ANA MARIA | [address] | [place], [place] | | | JULIANN SILVA OF [facility] | [address] | [address] | | | TESTS | | | [...] [facility] | [address] | [place] [address] | | | SERVICES, CORE | PARK [...] | + + + + + | [facility] | [address] | [place] [address] | | | SERVICES, CORE | TABITHA [...] | | | LABORATORY | | | [place] CIT[employer] | | | SERVICES, | | | [...] [facility] | [address] | [place] [address] | | | SERVICES, CORE | PARK [...] HOSPITAL [facility] | [address] | [place] [address] | | | SERVICES, CORE | PARK [...] | + + + + + | [facility] | [address] | [place] [address] | | | SERVICES, CORE | TABITHA [...] - [facility] | [address] | [place], [place] | | | R[facility]ARDO POINT OF CARE | [address] | [address] | | | TESTS | | | [...] + + + | [facility] | [address] | [place], [place] | | | RICARDO POINT OF CARE | [address] | [address] | | | TESTS | | | [...] | | | LABORATORY | | | [place] CITIZEN | | | SERVICES, | | | [...] | + + + + + | [facility] | [address] | [place] [address] | | | SERVICES, CORE | TABITHA [...] MARRANDIAM | [address] | [place], [place] | | | JULIANN SILVA OF [facility] | [address] | [address] | | | TESTS | | | | + + + + + RAINBOW HOLD TUBE - GREEN TOP (03/26/2017 3:50 AM PDT) + + | Specimen | + + | Blood | + + + + + + + | Performing | Address | City/State/Zipcode | Phone Number | | Organization | | | | + + + + + | [facility] | [address] | [place] [address] | | | SERVICES, CORE | TABITHA [...] | + + + + + | [facility] | [address] | [place] [address] | | | SERVICES, CORE | PARK [...] + + + + | [facility] | [address] | [place] [address] | | | ИРИНА ANTOINE | TABITHA [...] | | | LABORATORY | | | [place] CITIZEN | | | SERVICES, | | | [...] [facility] CAL[facility] | [address] | [place] [address] | | | SERVICES, CORE | TABITHA [...] | + + + + + | [facility] | [address] | [place] [address] | | | SERVICES, CORE | TABITHA [...] [facility] | [address] | [place] [address] | | | SERVICES, CORE | PARK [...] [facility] | | considered for monitoring exterminator glycemic control in patients with: | LABORATORY [...] [facility] | [address] | [place] [address] | | | SERVICES, SPECIAL | PARK [...] + + + + + | [facility] | [address] | [place] [address] | | | SERVICES, CORE | TABITHA [...] [facility] | [address] | [place], [place] | | | RICARDO POINT OF CARE | [address] | [address] | | | TESTS | | | [...] [facility] | [address] | [place], [place] | | | R[facility]ARDO POINT OF CARE | [address] | [address] | | | TESTS | | | [...] | + + + + + | [facility] | [address] | [place] [address] | | | SERVICES, CORE | TABITHA [...] | [facility] | | | GRAVITY | [place] performed by | | LABORATORY | | [...] | + + + + + | [facility] | [address] | [place] [address] | | | SERVICES, CORE | TABITHA [...] + | [facility] | [address] | [place] [address] | | | [place] | | | [...] [facility] | [address] | [place] | | | RICARDO POINT OF CARE | [address] | [address] | | | TESTS | | | [...] RODG[facility] | [address] | [place] | | | R[facility]ARDO POINT OF CARE | [address] | [address] | | | TESTS | | | [...] | + + + + + | [facility] | [address] | [place] [address] | | | ИРИНА ANTOINE | [address] | | | + [...] HOSPITAL [facility] | [address] | [place] [address] | | | ИРИНА ANTOINE | TABITHA [...] ranges for full anticoagulation: INR for | [facility] | | Venous Thromboembolism (2.0 - 3.0) INR INR | LABORATORY | | for most patients with mech. valves (2.5 - 3.5) INR | ИРИНА ANTOINE | + + + + + + + + | Performing | Address | City/State/Zipcode | Phone Number | | Organization | | | | + + + + + | [facility] | [address] | [place] [address] | | | ИРИНА ANTOINE | TABITHA [...] [facility] | [address] | [place] [address] | | | SERVICES, CORE | PARK [...] | | | LABORATORY | | | [place] CIT[employer]EN | | | SERVICES, | | | [...] | + + + + + | [facility] | [address] | [place] [address] | | | SERVICES, CORE | PARK [...] + + + + | [facility] | [address] | [place] [address] | | | SERVICES, CORE | PARK [...] [facility] | [address] | [place] | | | JULIANN SILVA OF CARE | [address] | [address] | | | TESTS | | | [...] - [facility] | [address] | [place], [place] | | | JULIANN SILVA OF CARE | [address] | [address] | | | TESTS | | | [...] RODGERS | [address] | [place], [place] | | | RICARDO POINT OF CARE | [address] | [address] | | | TESTS | | | [...] [facility] | [address] | [place] | | | JULIANN SILVA OF CARE | [address] | [address] | | | TESTS | | | [...] [facility] | [address] | [place] [address] | | | SERVICES, CORE | PARK [...] | + + + + + | [facility] | [address] | [place] [address] | | | SERVICES, CORE | TABITHA [...] [facility] | [address] | [place] | | | JULIANN SILVA OF CARE | [address] | [address] | | | TESTS | | | [...] | | | attempt. Midline lot number [id number]; there was + blood | | | [...] RODGERS | [address] | [place], [place] | | | JULIANN SILVA OF [facility] | [address] | [address] | | | TESTS | | | [...] MARQU[facility] | [address] | [place] | | | RICARDO POINT OF CARE | [address] | [address] | | | TESTS | | | [...] | + + + + + | [facility] | [address] | [place] [address] | | | SERVICES, CORE | TABITHA [...] RODGERS | [address] | [place] | | | JULIANN SILVA OF [facility] | [facility] | [address] | | | TESTS | | | [...] MARIA | [address] | [place] | | | JULIANN SILVA OF [facility] | [address] | [address] | | | TESTS | | | [...] MARIA | [address] | [place], [place] | | | R[facility]ARDO POINT OF CARE | [facility] | [address] | | | TESTS | | | [...] RODGERS | [address] | [place] | | | JULIANN SILVA OF [facility] | [facility] | [address] | | | TESTS | | | [...] | + + + + + | [facility] | [address] | [place] [address] | | | SERVICES, CORE | TABITHA [...] | + + + + + | [facility] | [address] | [place] [address] | | | SERVICES, CORE | TABITHA [...] [facility] | [address] | [place] [address] | | | SERVICES, CORE | TABITHA [...] | | | LABORATORY | | | [place] CIT[employer] | | | SERVICES, | | | [...] | + + + + + | [facility] | [address] | [place] [address] | | | SERVICES, CORE | TABITHA [...] + + + + | [facility] | [address] | [place] [address] | | | ИРИНА ANTOINE | TABITHA [...] ANA MARIA | [address] | [place], [place] | | | JULIANN SILVA OF CARE | [address] | [address] | | | TESTS | | | [...] RODGERS | [address] | [place] | | | JULIANN SILVA OF CARE | [address] | [address] | | | TESTS | | | [...] MARQU[facility] | [address] | [place] | | | JULIANN SILVA OF CARE | [address] | [address] | | | TESTS | | | [...] ANA MARIA | [address] | [place], [place] | | | [facility]ARDO [facility] | [address] | [address] | | | TESTS | | | [...] | + + + + + | [facility] | [address] | [place] [address] | | | SERVICES, CORE | TABITHA [...] MAR[facility] | [address] | [place], [place] | | | RICARDO POINT OF CARE | [address] | [address] | | | TESTS | | | [...] ANA MARIA | [address] | [place], [place] | | | R[facility]ARDO POINT OF CARE | [address] | [address] | | | TESTS | | | [...] + | [facility] | [address] | [place] [address] | | | SERVICES, CORE | TABITHA [...] RODGERS | [address] | [place] | | | JULIANN SILVA OF [facility] | [facility] | [address] | | | TESTS | | | [...] MARQU[facility] | [address] | [place], [place] | | | JULIANN SILVA OF CARE | [address] | [address] | | | TESTS | | | [...] MARQU[facility] | [address] | [place] | | | RICARDO POINT [facility] | [address] | [address] | | | TESTS | | | [...] RODGERS | [address] | [place] | | | JULIANN SILVA OF [facility] | [facility] | [address] | | | TESTS | | | [...] MARIA | [address] | [place] | | | RICARDO PO[facility] | [address] | [address] | | | TESTS | | | [...] [facility] | [address] | [place] [address] | | | SERVICES, CORE | PARK [...] HOSPITAL LAB[facility]ORY | [address] | [place] [address] | | | SERVICES, CORE | PARK [...] | + + + + + | [facility] | [address] | [place] [address] | | | SERVICES, CORE | TABITHA [...] | | | LABORATORY | | | [place] CIT[employer]EN | | | SERVICES, | | | [...] [facility] | [address] | [place] [address] | | | SERVICES, CORE | PARK [...] HOSPITAL [facility] | [address] | [place] [address] | | | SERVICES, CORE | TABITHA [...] (H) | 70 - 99 mg/dL | [facility] - | | | GLUCOSE, | | [...] MARIA | [address] | [place], [place] | | | JULIANN SILVA OF [facility] | [facility] | [address] | | | TESTS | | | [...] MARIA | [address] | [place], [place] | | | JULIANN SILVA OF [facility] | [facility] | [address] | | | TESTS | | | [...] MARIA | [address] | [place] | | | RICARDO POINT OF CARE | [address] | [address] | | | TESTS | | | [...] + + | Performing | Address | City/State/[facility] | Phone Number | | Organization | | | | + + + + + | [facility] | [address] | [place], [place] | | | JULIANN SILVA OF [facility] | [facility] | [address] | | | TESTS | | | [...] BLU[facility] | [address] | [place], [place] | | | JULIANN SILVA OF [facility] | [facility] | [address] | | | TESTS | | | [...] MARIA | [address] | [place] | | | R[facility]ARDO POINT OF CARE | [address] | [address] | | | TESTS | | | [...] [facility] | [address] | [place] [address] | | | SERVICES, CORE | PARK [...] - [facility] | [address] | [place] | | | JULIANN SILVA OF CARE | [facility] | [address] | | | TESTS | | | [...] RODGERS | [address] | [place] | | | RICARDO POINT OF CARE | [address] | [address] | | | TESTS | | | [...] [facility] | [address] | [place] | | | JULIANN SILVA OF CARE | [address] | [address] | | | TESTS | | | [...] - [facility] | [address] | [place] | | | JULIANN SILVA OF CARE | [address] | [address] | | | TESTS | | | [...] + + + | [facility] | [address] | [place], [place] | | | RICARDO POINT OF CARE | [address] | [address] | | | TESTS | | | [...] [facility] | [address] | [place] [address] | | | ARASH, ИРИНА | TABITHA [...] [facility] | [address] | [place] | | | JULIANN SILVA OF [facility] | [address] | [address] | | | TESTS | | | [...] RODGERS | [address] | [place] | | | RICARDO POINT OF CARE | [address] | [address] | | | TESTS | | | [...] MAR[facility] | [address] | [place] | | | JULIANN SILVA OF CARE | [address] | [address] | | | TESTS | | | [...] [facility] | [address] | [place] | | | JULIANN SILVA OF [facility] | [address] | [address] | | | TESTS | | | [...] RODGERS | [address] | [place], [place] | | | RICARDO POINT OF CARE | [address] | [address] | | | TESTS | | | [...] MAR[facility] | [address] | [place] | | | HILL, POINT OF CARE | [address] | [address] | | | TESTS | | | [...] [facility] | [address] | [place] [address] | | | SERVICES, | [address] [...] HOSPITAL [facility] | [address] | [place] [address] | | | SERVICES, | [address] [...] + + + + | PRODUCT | [id number] | | [facility] | | | UNIT [...] + + + + | EXPIRATION | [id number] | | [facility] | | | DATE [...] + + + + | BLOOD | [id number] | | [facility] | | | PRODUCT [...] [facility] | [address] | [place] [address] | | | SERVICES, | [address] [...] + + + | [facility] | [address] | [place] [address] | | | SERVICESИРИНА | [address] [...] | + + + + + | [facility] | [address] | [place] [address] | | | SERVICES, CORE | PARK [...] | + + + + + | [facility] | [address] | [place] [address] | | | ИРИНА ANTOINE | TABITHA [...] + | [facility] | [address] | [place] [address] | | | SERVICES, CORE | TABITHA [...] [facility] | [address] | [place] [address] | | | SERVICES, CORE | PARK [...] | | | LABORATORY | | | [place] CITIZ[place] | | | SERVICES, | | | [...] + + + + | [facility] | [address] | [place] [address] | | | SERVICES, CORE | [...] MARIA | [address] | [place], [place] | | | JULIANN SILVA OF CARE | [facility] | [address] | | | TESTS | | | [...] RODGERS | [address] | [place] | | | JULIANN SILVA OF CARE | [facility] | [address] | | | TESTS | | | [...] MARIA | [address] | [place], [place] | | | JULIANN SILVA OF [facility] | [address] | [address] | | | TESTS | | | [...] | [facility] | [address] | [place], [place] | | | JULIANN SILVA OF CARE | [facility] | [address] | | | TESTS | | | [...] RODGERS | [address] | [place] | | | JULIANN SILVA OF CARE | [facility] | [address] | | | TESTS | | | [...] MARIA | [address] | [place], [place] | | | JULIANN SILVA OF [facility] | [address] | [address] | | | TESTS | | | [...] MARIA | [address] | [place], [place] | | | JULIANN SILVA OF CARE | [facility] | [address] | | | TESTS | | | [...] RODGERS | [address] | [place] | | | JULIANN SILVA OF CARE | [address] | [address] | | | TESTS | | | [...] MARIA | [address] | [place], [place] | | | JULIANN SILVA OF [facility] | [address] | [address] | | | TESTS | | | [...] | | | LABORATORY | | | [place] CITIZ[place] | | | SERVICES, | | | [...] + + + + | [facility] | [address] | [place] [address] | | | SERVICES, CORE | PARK [...] MAR[facility] | [address] | [place] | | | JULIANN SILVA OF CARE | [address] | [address] | | | TESTS | | | [...] MAR[facility] | [address] | [place], [place] | | | JULIANN SILVA OF [facility] | [address] | [address] | | | TESTS | | | [...] RODGERS | [address] | [place], [place] | | | JULIANN SILVA OF [facility] | [address] | [address] | | | TESTS | | | [...] on the 1 attempt. Midline lot number [id number]; there was + | | | blood [...] MAR[facility] | [address] | [place], [place] | | | JULIANN SILVA OF CARE | [facility] | [address] | | | TESTS | | | [...] RODGERS | [address] | [place] | | | JULIANN SILVA OF CARE | [address] | [address] | | | TESTS | | | [...] | + + + + + | [facility] | [address] | [place] [address] | | | SERVICES, CORE | PARK [...] + + + | [facility] | [address] | [place], [place] | | | RICARDO POINT OF CARE | [address] | [address] | | | TESTS | | | [...] | + + + + + | [facility] | [address] | [place] [address] | | | SERVICES, CORE | PARK [...] MARIA | [address] | [place], [place] | | | JULIANN SILVA OF CARE | [address] | [address] | | | TESTS | | | [...] MARIA | [address] | [place], [place] | | | JULIANN SILVA OF [facility] | [facility] | [address] | | | TESTS | | | [...] RODGERS | [address] | [place] | | | RICARDO POINT OF CARE | [address] | [address] | | | TESTS | | | [...] MARIA | [address] | [place], [place] | | | JULIANN SILVA OF [facility] | [address] | [address] | | | TESTS | | | [...] [facility] | [address] | [place] [address] | | | ИРИНА ANTOINE | TABITHA [...] HOSPITAL [facility] | [address] | [place] [address] | | | SERVICES, CORE | [address] | | | + + + + + MAGNESIUM, PLASMA (03/21/2017 5:34 AM PDT) + +---------+ + + + | Component | Value | Ref Range | Performed | Pathologist | | | | | At | Signature | + +---------+ + + + | MAGNESIUM,P | 2.6 (H) | 1.8 - 2.5 mg/dL | [facility] | | | LASMA | | | [...] | + + + + + | [facility] | [address] | [place] [address] | | | SERVICES, CORE | TABITHA [...] | | | LABORATORY | | | [place] CIT[employer] | | | SERVICES, | | | [...] | + + + + + | [facility] | [address] | [place] [address] | | | ИРИНА ANTOINE | TABITHA [...] RODGERS | [address] | [place] | | | RICARDO POINT OF CARE | [address] | [address] | | | TESTS | | | [...] MARIA | [address] | [place], [place] | | | JULIANN SILVA OF [facility] | [address] | [address] | | | TESTS | | | [...] MAR[facility] | [address] | [place] | | | JULIANN SILVA OF CARE | [address] | [address] | | | TESTS | | | [...] RODGERS | [address] | [place] | | | JULIANN SILVA OF CARE | [address] | [address] | | | TESTS | | | [...] BLUAM | [address] | [place] | | | JULIANN SILVA OF CARE | [address] | [address] | | | TESTS | | | [...] [facility]OS[facility] | [address] | [place] [address] | | | SERVICES, CORE | TABITHA [...] RODGERS | [address] | [place] | | | RICARDO POINT OF CARE | [address] | [address] | | | TESTS | | | [...] MAR[facility] | [address] | [place] | | | RICARDO POINT OF CARE | [address] | [address] | | | TESTS | | | [...] [facility] | [address] | [place] | | | JULIANN SILVA OF [facility] | [facility] | [address] | | | TESTS | | | [...] RODGERS | [address] | [place] | | | JULIANN SILVA OF CARE | [address] | [address] | | | TESTS | | | [...] [facility] | [address] | [place] | | | HILL, POINT OF CARE | [address] | [address] | | | TESTS | | | [...] [facility] | [address] | [place] | | | JULIANN SILVA OF [facility] | [facility] | [address] | | | TESTS | | | [...] RODGERS | [address] | [place] | | | JULIANN SILVA OF CARE | [address] | [address] | | | TESTS | | | [...] | + + + + + | [facility] | [address] | [place] [address] | | | SERVICES, CORE | TABITHA [...] RODGERS | [address] | [place] | | | JULIANN SILVA OF [facility] | [facility] | [address] | | | TESTS | | | [...] MARIA | [address] | [place], [place] | | | JULIANN SILVA OF CARE | [address] | [address] | | | TESTS | | | [...] [facility]OS[facility] | [address] | [place] [address] | | | ИРИНА ANTOINE | TABITHA [...] RODGERS | [address] | [place] | | | JULIANN SILVA OF [facility] | [address] | [address] | | | TESTS | | | [...] the tip in the proximal gastric body. Tiffin Олег | | | catheter in place. [...] Note | + + | Service Account, [employer] Res In Interface - 03/20/2017 2:38 PM PDT EXAM: Supine | | frontal view of the abdomen. HISTORY: Study to evaluate feeding tube | | positionCOMPARISON: Chest Xray dated 03/19/2017.FINDINGS AND IMPRESSION:Feeding tube is | | seen in the stomach with the tip in the proximal gastric body.Tiffin Олег catheter in | | place.Limited evaluation of the lungs as technique was tailored for feeding tube.I have | | personally reviewed the images and, if necessary, edited the report. I agree with the | | report as now presented. | | | |Feeding tube is seen in the stomach with the tip in the proximal gastric body. | |Tiffin Олег catheter in place. | |Limited evaluation [...] [facility] | [address] | [place], [place] | | | JULIANN SILVA OF CARE | [address] | [address] | | | TESTS | | | [...] + + + + + | [facility] | [address] | [place] | | | JULIANN SILVA OF CARE | [address] | [address] | | | TESTS | | | [...] + + | [facility] | [address] | [place] | | | JULIANN SILVA OF CARE | [address] | [address] | | | TESTS | | | [...] MAR[facility] | [address] | [place], [place] | | | JULIANN SILVA OF [facility] | [address] | [address] | | | TESTS | | | [...] RODGERS | [address] | [place] | | | RICARDO POINT OF CARE | [address] | [address] | | | TESTS | | | [...] | + + + + + | [facility] | [address] | [place] [address] | | | ARASH, ИРИНА | TABITHA [...] + + | [facility] | [address] | [place] [address] | | | SERVICES, CORE | PARK [...] + + + + | [facility] | [address] | [place] [address] | | | SERVICES, CORE | TABITHA [...] [facility] | [address] | [place], [place] | | | JULIANN SILVA OF CARE | [address] | [address] | | | TESTS | | | | + + + + + X-RAY PORTABLE CHEST 1 VIEW (03/20/2017 6:33 AM PDT) + + | Specimen | + + | | + + + + + | Narrative | Performed At | + + + | EXAM: IN CHEST 1 VIEW 03/20/17 04:29:28 HISTORY: ECMO [...] Note | + + | Service Account, Vinted In Interface - 03/20/2017 10:12 AM PDT EXAM: IN CHEST 1 | | VIEW 03/20/17 04:29:28 [...] [facility] | [address] | [place], [place] | | | CHRISTIE SILVA [facility] | [facility] | [address] | | | TESTS | | | [...] [facility] | [address] | [place], [place] | | | JULIANN SILVA OF [place] | [facility] | [address] | | | TESTS | | | [...] R[facility] | [address] | [place], [place] | | | RICARDO POINT OF CARE | [address] | [address] | | | TESTS | | | [...] [facility] | [address] | [place], [place] | | | JULIANN SILVA OF [facility] | [facility] | [address] | | | TESTS | | | [...] [facility] | [address] | [place] [address] | | | SERVICES, CORE | TABITHA [...] | + + + + + | [facility] | [address] | [place] [address] | | | SERVICES, CORE | [address] | | | + + + + + MAGNESIUM, PLASMA (03/20/2017 1:00 AM PDT) + +---------+ + + + | Component | Value | Ref Range | Performed | Pathologist | | | | | At | Signature | + +---------+ + + + | MAGNESIUM,P | 2.7 (H) | 1.8 - 2.5 mg/dL | [facility] | | | [facility] | | [...] [facility] | [address] | [place] [address] | | | SERVICES, CORE | PARK [...] | + + + + + | [facility] | [address] | [place] [address] | | | SERVICES, CORE | TABITHA [...] | | | LABORATORY | | | [employer] | | | SERVICES, | | | [...] | + + + + + | [facility] | [address] | [place] [address] | | | ARASH, ИРИНА | TABITHA [...] [facility] | [address] | [place], [place] | | | HILL, POINT OF CARE | [address] | [address] | | | TESTS | | | [...] [facility] | [address] | [place], [place] | | | JULIANN SILVA OF [facility] | [address] | [address] | | | TESTS | | | [...] | + + + + + | [facility] | [address] | [place] [address] | | | SERVICES, CORE | TABITHA [...] [facility] | [address] | [place], [place] | | | JULIANN SILVA OF CARE | [address] | [address] | | | TESTS | | | [...] EULOGIO [facility] | [address] | [place], [place] | | | RICARDO [facility] OF [facility] | [address] | [address] | | | TESTS | | | [...] [facility] | [address] | [place] [address] | | | SERVICES, CORE | TABITHA [...] [facility] | [address] | [place], [place] | | | JULIANN SILVA [facility] [place] | [facility] | [address] | | | TESTS | | | [...] [facility] | [address] | [place] [address] | | | SERVICES, CORE | TABITHA [...] (H) | 70 - 99 mg/dL | [facility] - | | | GLUCOSE, | | | [facility] | | | POC | | | JULIANN SILVA | | | | | | OF CARE | | | | | | TESTS | | + +---------+ + + + + + | Specimen | + + | | + + + + + + + | Performing | Address | City/State[facility] | Phone Number | | Organization | | | | + + + + + | [facility] | [address] | [place], [place] | | | JULIANN SILVA OF [place] | [facility] | [address] | | | TESTS | | | [...] [facility] | [address] | [place] [address] | | | SERVICES, CORE | PARK [...] [facility] | [address] | [place] [address] | | | ИРИНА ANTOINE | TABITHA [...] MARIA | [address] | [place], [place] | | | RICARDO POINT OF CARE | [address] | [address] | | | TESTS | | | [...] | 118 (L) | >300 mmHg | [facility] | | | RATIO | | | [...] [facility] | [address] | [place] [address] | | | ARASH, ИРИНА | TABITHA [...] [facility] | [address] | [place] [address] | | | SERVICES, CORE | PARK [...] [facility] | [address] | [place] [address] | | | ARASH, ИРИНА | PARK [...] [facility] | [address] | [place] [address] | | | SERVICES, CORE | TABITHA [...] [facility] | [address] | [place], [place] | | | JULIANN SILVA OF [facility]LEX[facility] | [address] | [address] | | | TESTS | | | [...] [facility] | [address] | [place], [place] | | | RICARDO POINT OF CARE | [address] | [address] | | | TESTS | | | [...] ANA MARIA | [address] | [place], [place] | | | R[facility]ARDO [facility] | [address] | [address] | | | TESTS | | | [...] [facility] | [address] | [place] [address] | | | SERVICES, CORE | TABITHA [...] [facility] | [address] | [place], [place] | | | CARDIOLOGY | [address] | [address] | | + + + + + [...] [facility] | [address] | [place] | | | JULIANN SILVA OF CARE | [address] | [address] | | | TESTS | | | | + + + + + OG-BF-ZDH-HB,POC RT (03/19/2017 1:04 PM PDT) + + [...] [facility] | [address] | [place], [place] | | | JULIANN SILVA OF CARE | [address] | [address] | | | TESTS | | | [...] + + + + | PRODUCT | [id number] | | [facility] | | | UNIT [...] + + + + | EXPIRATION | [id number] | | [facility] | | | DATE [...] + + + + | BLOOD | [id number] | | [facility] | | | PRODUCT [...] [facility] | [address] | [place] [address] | | | SERVICES, | [address] [...] + + + + | PRODUCT | [id number] | | [facility] | | | UNIT [...] + + + + | EXPIRATION | [id number] | | [facility] | | | DATE [...] + + + + | BLOOD | [id number] | | [facility] | | | PRODUCT [...] [facility] | [address] | [place] [address] | | | SERVICES, | [address] [...] + + + + | PRODUCT | [id number] | | [facility] | | | UNIT [...] + + + + | EXPIRATION | [id number] | | [facility] | | | DATE [...] + + + + | BLOOD | [id number] | | [facility] | | | PRODUCT [...] LABORATORY | [address] | [place] [address] | | | SERVICES, | [address] [...] + + + + | PRODUCT | [id number] | | [facility] | | | UNIT [...] + + + + | EXPIRATION | [id number] | | [facility] | | | DATE [...] + + + + | BLOOD | [id number] | | [facility] | | | PRODUCT [...] [facility] | [address] | [place] [address] | | | SERVICES, | [address] [...] | + + + + + | [facility] | [address] | [place] [address] | | | SERVICES, CORE | TABITHA [...] | | | LABORATORY | | | [employer] | | | SERVICES, | | | [...] [facility] | [address] | [place] [address] | | | ARASH, ИРИНА | PARK [...] [facility] | [address] | [place] [address] | | | SERVICES, CORE [...] | + + + + + | [facility] | [address] | [place] [address] | | | SERVICES, CORE | [address] | | | + + + + + IN ECMO REV (EXT)AND/OR DECANNULATION (03/19/2017 12:36 PM [...] GISELL Preston PhD [place] [address] [id number] [place], | | | [place] [address] | | + + + ABG-FULL ABL, POC (03/19/2017 12:14 PM PDT) + + + + + + | Component | Value | Ref Range | Performed | Pathologist | | | | | At | Signature | + + + + + + | PH | 7.42 | 7.37 - 7.44 | [facility] - | | | ARTERIAL, | [...] - [facility] | [address] | [place], [place] | | | JULIANN SILVA OF CARE | [address] | [address] | | | TESTS | | | [...] ANA MARIA | [address] | [place], [place] | | | JULIANN SILVA OF CARE | [facility] | [address] | | | TESTS | | | | + + + + + VU-SI-VAH-HB,POC RT (03/19/2017 10:24 AM PDT) + + [...] - [facility] | [address] | [place], [place] | | | JULIANN SILVA OF CARE | [address] | [address] | | | TESTS | | | [...] [facility] | [address] | [place], [place] | | | RICARDO POINT OF CARE | [address] | [address] | | | TESTS | | | | + + + + + ZT-XQ-PYS-HB,POC RT (03/19/2017 10:06 AM PDT) + + [...] + + + | [facility] | [address] | [place], [place] | | | RICARDO POINT OF CARE | [address] | [address] | | | TESTS | | | | + + + + + WU-AL-TXB-KARY ISIDRO RT (03/19/2017 9:51 AM PDT) + [...] MARIA | [address] | [place], [place] | | | JULIANN SILVA OF [facility] | [address] | [address] | | | TESTS | | | [...] + + + + | PRODUCT | [id number] | | [facility] | | | UNIT [...] + + + + | EXPIRATION | [id number] | | [facility] | | | DATE [...] + + + + | BLOOD | [id number] | | [facility] | | | PRODUCT [...] | + + + + + | [facility] | [address] | [place] [address] | | | SERVICES, | [address] [...] + + + + | PRODUCT | [id number] | | [facility] | | | UNIT [...] + + + + | EXPIRATION | [id number] | | [facility] | | | DATE [...] + + + + | BLOOD | [id number] | | [facility] | | | PRODUCT [...] | + + + + + | [facility] | [address] | [place] [address] | | | SERVICES, | [address] [...] + + + + | PRODUCT | [id number] | | [facility] | | | UNIT [...] + + + + | EXPIRATION | [id number] | | [facility] | | | DATE [...] + + + + | BLOOD | [id number] | | [facility] | | | PRODUCT [...] | + + + + + | [facility] | [address] | [place] [address] | | | SERVICES, | [address] [...] + + + + | PRODUCT | [id number] | | [facility] | | | UNIT [...] + + + + | EXPIRATION | [id number] | | [facility] | | | DATE [...] + + + + | BLOOD | [id number] | | [facility] | | | PRODUCT [...] [facility] | [address] | [place] [address] | | | SERVICES, | [address] | | | | TRANSFUSION MEDICINE | | | | + + + + + X-RAY PORTABLE CHEST 1 VIEW (03/19/2017 9:13 AM PDT) + + | Specimen | + + | | + + + + + | Narrative | Performed At | + + + | EXAM: IN CHEST 1 VIEW HISTORY: ECMO. Evaluate cannula | [facility] | | placement. COMPARISON: Yesterday FINDINGS: Endotracheal | RADIOLOGY VOICE | | tube, Tiffin-Олег catheter and enteric tube remain in place. [...] Note | + + | Service Account, Vinted In Interface - 03/19/2017 9:17 AM PDT EXAM: IN CHEST 1 | | VIEW HISTORY: ECMO. Evaluate cannula placement.COMPARISON: YesterdayFINDINGS: | | Endotracheal tube, Tiffin-Олег catheter and enteric tube remain in place. [...] - MARRANDIAM | [address] | [place], [place] | | | JULIANN SILVA OF CARE | [address] | [address] | | | TESTS | | | [...] R[facility] | [address] | [place], [place] | | | JULIANN SILVA OF CARE | [address] | [address] | | | TESTS | | | [...] [facility] | [address] | [place] [address] | | | SERVICES, CORE | PARK [...] - MARRAND[facility] | [address] | [place], [place] | | | RICARDO POINT OF CARE | [address] | [address] | | | TESTS | | | [...] + + + | [facility] | [address] | [place], [place] | | | JULIANN SILVA OF [facility] | [address] | [address] | | | TESTS | | | [...] MARQU[facility] | [address] | [place], [place] | | | JULIANN SILVA OF [facility] | [facility] | [address] | | | TESTS | | | [...] ANA MARIA | [address] | [place] | | | RICARDO POINT OF CARE | [address] | [address] | | | TESTS | | | [...] [facility]OS[facility] | [address] | [place] [address] | | | SERVICES, CORE | TABITHA [...] [facility] | [address] | [place] | | | JULIANN SILVA OF [facility] | [facility] | [address] | | | TESTS | | | [...] MARQUAM | [address] | [place], [place] | | | JULIANN SILVA OF CARE | [address] | [address] | | | TESTS | | | [...] MARIA | [address] | [place] | | | RICARDO POINT OF CARE | [address] | [address] | | | TESTS | | | [...] + | [facility] | [address] | [place] [address] | | | ARASH, ИРИНА | TABITHA [...] [facility] | [address] | [place], [place] | | | JULIANN SILVA OF [facility] | [facility] | [address] | | | TESTS | | | [...] [facility] | [address] | [place] [address] | | | SERVICES, CORE | PARK [...] HOSPITAL [facility] | [address] | [place] [address] | | | SERVICES, CORE | [address] | | | + + + + + MAGNESIUM, PLASMA (03/19/2017 1:11 AM PDT) + +---------+ + + + | Component | Value | Ref Range | Performed | Pathologist | | | | | At | Signature | + +---------+ + + + | MAGNESIUM,P | 2.6 (H) | 1.8 - 2.5 mg/dL | [facility] | | | LASMA | | | [...] [facility]OS[facility] | [address] | [place] [address] | | | SERVICES, CORE | TABITHA [...] | + + + + + | [facility] | [address] | [place] [address] | | | SERVICES, CORE | TABITHA [...] [facility] | [address] | [place] [address] | | | SERVICES, CORE | PARK [...] [facility] | [address] | [place] [address] | | | ARASH, ИРИНА | TABITHA [...] | | | LABORATORY | | | [employer] | | | SERVICES, | | | [...] | + + + + + | [facility] | [address] | [place] [address] | | | SERVICES, CORE | TABITHA [...] [facility] | [address] | [place] [address] | | | SERVICES, CORE | PARK [...] + | [facility] | [address] | [place] [address] | | | SERVICES, CORE | PARK [...] [facility] | [address] | [place] | | | JULIANN SILVA OF [facility] | [facility] | [address] | | | TESTS | | | [...] [facility]OS[facility] | [address] | [place] [address] | | | SERVICES, CORE | TABITHA [...] (H) | 70 - 99 mg/dL | [facility] - | | | GLUCOSE, | | [...] [facility] | [address] | [place] | | | RICARDO POINT OF CARE | [address] | [address] | | | TESTS | | | [...] MARQU[facility] | [address] | [place], [place] | | | RICARDO POINT OF CARE | [address] | [address] | | | TESTS | | | [...] [facility] | [address] | [place] [address] | | | SERVICES, CORE | TABITHA [...] [facility] | [address] | [place] | | | JULIANN [facility] | [address] | [address] | | | TESTS | | | [...] [facility] | [address] | [place] | | | JULIANN SILVA OF CARE | [address] | [address] | | | TESTS | | | [...] ANA MARIA | [address] | [place] | | | RICARDO POINT OF CARE | [address] | [address] | | | TESTS | | | [...] [facility] | [address] | [place] [address] | | | SERVICES, CORE | PARK [...] HOS[facility]ITAL [facility] | [address] | [place] [address] | | | SERVICES, CORE | TABITHA [...] [facility] | [address] | [place], [place] | | | JULIANN SILVA OF [facility] | [address] | [address] | | | TESTS | | | [...] | + + + + + | [facility] | [address] | [place] [address] | | | SERVICES, ИРИНА | TABITHA [...] MARIA | [address] | [place], [place] | | | JULIANN SILVA OF CARE | [facility] | [address] | | | TESTS | | | [...] R[facility] | [address] | [place] | | | JULIANN SILVA OF CARE | [facility] | [address] | | | TESTS | | | [...] [facility]OS[facility]ITAL [facility] | [address] | [place] [address] | | | SERVICES, CORE | PARK [...] | + + + + + | [facility] | [address] | [place] [address] | | | ARASH, ИРИНА | TABITHA [...] [facility] | [address] | [place] | | | RICARDO POINT OF CARE | [address] | [address] | | | TESTS | | | [...] ANA MARIA | [address] | [place], [place] | | | EVERLY POINT OF CARE | [address] | [address] | | | TESTS | | | [...] [facility] | [address] | [place] [address] | | | SERVICES, CORE | PARK [...] HOSPITAL [facility] | [address] | [place] [address] | | | SERVICES, CORE | PARK [...] [facility] | [address] | [place] [address] | | | SERVICES, CORE | PARK [...] | + + + + + | [facility] | [address] | [place] [address] | | | SERVICES, CORE | TABITHA [...] | | | LABORATORY | | | [employer] | | | SERVICES, | | | [...] [facility] | [address] | [place] [address] | | | SERVICES, CORE | TABITHA [...] HOSPITAL [facility] | [address] | [place] [address] | | | SERVICES, CORE | TABITHA [...] HOS[facility]ITAL [facility] | [address] | [place] [address] | | | ARASH, ИРИНА | [address] | | | + [...] [facility] | [address] | [place] [address] | | | SERVICES, CORE | PARK [...] [facility] | [address] | [place], [place] | | | RICARDO POINT OF CARE | [address] | [address] | | | TESTS | | | [...] [facility] | [address] | [place] | | | RICARDO POINT OF CARE | [address] | [address] | | | TESTS | | | [...] [facility] | [address] | [place] [address] | | | SERVICES, CORE | PARK [...] MARIA | [address] | [place], [place] | | | RICARDO [facility] | [address] | [address] | | | TESTS | | | [...] | + + + + + | [facility] | [address] | [place] [address] | | | SERVICES, CORE | PARK [...] | + + + + + | [facility] | [address] | [place] [address] | | | SERVICES, CORE | PARK [...] | + + + + + | [facility] - | [address] | [place] [address] | | | [facility] [...] [facility] | [address] | [place] | | | RICARDO POINT OF CARE | [address] | [address] | | | TESTS | | | [...] [facility] | [address] | [place], [place] | | | JULIANN SILVA OF [facility] | [address] | [address] | | | TESTS | | | [...] [facility] | [address] | [place] [address] | | | SERVICES, ИРИНА | TABITHA [...] [facility] | [address] | [place] [address] | | | ARASH, ИРИНА | TABITHA [...] [facility] | [address] | [place] | | | JULIANN SILVA OF ALEX[place] | [facility] | [address] | | | TESTS | | | [...] [facility] | [address] | [place] | | | JULIANN SILVA OF [facility] | [address] | [address] | | | TESTS | | | | + + + + + X-RAY PORTABLE CHEST 1 VIEW (03/18/2017 6:05 AM PDT) + + | Specimen | + + | | + + + + + | Narrative | Performed At | + + + | EXAM: IN CHEST 1 VIEW HISTORY: ECMO. Evaluate cannula placement. | [facility] | | COMPARISON: Yesterday FINDINGS: Endotracheal tube tip is | RADIOLOGY VOICE | | 2.5 cm above the jefferson. Enteric tube tip in the stomach. Tiffin-Олег | RECOGNITION | | catheter tip projects [...] Note | + + | Service Account, Vinted In Interface - 03/18/2017 8:39 AM PDT EXAM: IN CHEST 1 | | VIEW HISTORY: ECMO. Evaluate cannula placement.COMPARISON: YesterdayFINDINGS: | | Endotracheal tube tip is 2.5 cm above the jefferson. Enteric tube tip in the stomach. | | Tiffin-Олег catheter tip projects in the main pulmonary [...] [facility] | [address] | [place], [place] | | | RICARDO POINT OF CARE | [address] | [address] | | | TESTS | | | [...] MARIA | [address] | [place], [place] | | | RICARDO [facility] | [facility] | [address] | | | TESTS | | | [...] | + + + + + | [facility] | [address] | [place] [address] | | | SERVICES, CORE | TABITHA [...] [facility] | [address] | [place], [place] | | | JULIANN SILVA OF A[facility] | [address] | [address] | | | TESTS | | | [...] ANA MARIA | [address] | [place] | | | JULIANN [facility] | [address] | [address] | | | TESTS | | | [...] [facility] | [address] | [place] [address] | | | SERVICES, | [address] [...] [facility] | [address] | [place] [address] | | | SERVICES, | [address] [...] + + + + | PRODUCT | [id number] | | [facility] | | | UNIT [...] + + + + | EXPIRATION | [id number] | | [facility] | | | DATE [...] + + + + | BLOOD | [id number] | | [facility] | | | PRODUCT [...] [facility] | [address] | [place] [address] | | | SERVICES, | [address] [...] MARIA | [address] | [place] | | | JULIANN SILVA OF CARE | [address] | [address] | | | TESTS | | | [...] [facility] | [address] | [place] [address] | | | SERVICES, CORE | TABITHA [...] + + | [facility] | [address] | [place] [address] | | | SERVICES, ИРИНА | TABITHA [...] | + + + + + | [facility] | [address] | [place] [address] | | | SERVICES, CORE | PARK [...] [facility] | [address] | [place] [address] | | | SERVICES, CORE | PARK [...] | | | LABORATORY | | | [employer] | | | SERVICES, | | | [...] | + + + + + | [facility] | [address] | [place] [address] | | | SERVICES, ИРИНА | TABITHA [...] HOSPITAL [facility] | [address] | [place] [address] | | | SERVICES, CORE | PARK [...] | + + + + + | [facility] | [address] | [place] [address] | | | SERVICES, CORE | TABITHA [...] [facility] | [address] | [place] [address] | | | SERVICES, CORE | TABITHA [...] Z[facility] | [address] | [place], [place] | | | JULIANN SILVA [facility] | [facility] | [address] | | | TESTS | | | [...] [facility] | [address] | [place] [address] | | | SERVICES, CORE | TABITHA [...] [facility] | [address] | [place] [address] | | | ИРИНА ANTOINE | TABITHA [...] ANA MAR[facility] | [address] | [place], [place] | | | JULIANN SILVA OF CARE | [facility] | [address] | | | TESTS | | | [...] R[facility] | [address] | [place] | | | JULIANN SILVA OF CARE | [facility] | [address] | | | TESTS | | | [...] MARIA | [address] | [place], [place] | | | JULIANN SILVA OF [facility] | [address] | [address] | | | TESTS | | | [...] [facility] | [address] | [place], [place] | | | JULIANN SILVA OF CARE | [address] | [address] | | | TESTS | | | [...] [facility] | [address] | [place] [address] | | | SERVICES, CORE | TABITHA [...] [facility] | [address] | [place] | | | RICARDO POINT OF CARE | [address] | [address] | | | TESTS | | | [...] [facility] | [address] | [place] [address] | | | SERVICES, ИРИНА | PARK [...] [facility] | [address] | [place] [address] | | | ИРИНА ANTOINE | PARK [...] [facility] | [address] | [place] [address] | | | SERVICES, CORE | PARK [...] | + + + + + | [facility] | [address] | [place] [address] | | | SERVICES, CORE | TABITHA [...] | [facility] | [address] | [place] [address] | | | SERVICES, CORE | PARK [...] [facility] | [address] | [place], [place] | | | JULIANN SILVA OF CARE | [facility] | [address] | | | TESTS | | | [...] MARIA | [address] | [place] | | | JULIANN SILVA [facility] | [address] | [address] | | | TESTS | | | [...] | 58 (L) | >300 mmHg | [facility] | | | RATIO | | [...] [facility] | [address] | [place] [address] | | | SERVICES, CORE | PARK [...] [facility] | [address] | [place] | | | JULIANN SILVA OF CARE | [facility] | [address] | | | TESTS | | | [...] + + + | [facility] | [address] | [place] | | | JULIANN SILVA [facility] | [address] | [address] | | | TESTS | | | [...] + + + + | PRODUCT | [id number] | | [facility] | | | UNIT [...] + + + + | EXPIRATION | [id number] | | [facility] | | | DATE [...] + + + + | BLOOD | [id number] | | [facility] | | | PRODUCT [...] [facility] | [address] | [place] [address] | | | SERVICES, | [address] [...] + + + + | PRODUCT | [id number] | | [facility] | | | UNIT [...] + + + + | EXPIRATION | [id number] | | [facility] | | | DATE [...] + + + + | BLOOD | [id number] | | [facility] | | | PRODUCT [...] | + + + + + | [facility] | [address] | [place] [address] | | | SERVICES, | [address] [...] [facility] | [address] | [place] | | | JULIANN SILVA OF CARE | [address] | [address] | | | TESTS | | | [...] [facility] | [address] | [place] [address] | | | SERVICES, CORE | PARK [...] [facility] | [address] | [place] [address] | | | SERVICES, CORE | PARK [...] [facility] | [address] | [place] [address] | | | SERVICES, CORE | PARK [...] [facility] | [address] | [place] [address] | | | SERVICES, CORE | TABITHA [...] | | | LABORATORY | | | [employer] | | | SERVICES, | | | [...] | + + + + + | [facility] | [address] | [place] [address] | | | SERVICES, CORE | PARK [...] [facility] | [address] | [place] [address] | | | SERVICES, CORE | TABITHA [...] [facility] | [address] | [place] [address] | | | SERVICES, CORE | TABITHA [...] | 115 (L) | >300 mmHg | [facility] | | | RATIO | | | [...] [facility] | [address] | [place] [address] | | | ARASH, ИРИНА | PARK [...] [facility] | [address] | [place], [place] | | | [facility] PO[facility] OF CARE | [address] | [address] | | | TESTS | | | [...] [facility] | [address] | [place] [address] | | | SERVICES, CORE | TABITHA [...] (H) | 60 - 99 mg/dL | [facility] - | | | GLUCOSE, | | [...] [facility] | [address] | [place], [place] | | | [facility] POINT OF CARE | [address] | [address] | | | TESTS | | | [...] Note | + + | Service Account, Vinted In Interface - 03/17/2017 6:18 PM PDT [...] Note | + + | Service Account, Vinted In Interface - 03/17/2017 6:17 PM PDT [...] [facility] | [address] | [place], [place] | | | [facility] POINT OF CARE | [address] | [address] | | | TESTS | | | [...] [facility] | [address] | [place] [address] | | | SERVICES, CORE | TABITHA [...] | EJECTION | 22.5 | % | [facility] | | | FRACTION | | | OF | | | [facility] | | | CARDIOLOGY | | | VALUE | | | | | + + + + + + + + | Specimen | + + | | + + + + -------+ | Narrative | Performed At | + + -------+ | [facility] | [facility] | | [facility] Adult Echocardiography | CARDIOLOG Y | | [place] [address] [facility] | | | [place] [address] Pt Name: | | | RON MCKEON Study Date/Time 03/17/2017 / 10:30:26 | | | AMMRN: [id number] Most recent | | | prior: 03/15/2017Acc #: [id number] No. | | | previous echos: 1DOB: 1955 61 years Heart | | | Rate: 139 bpmHeight: 69.0 | | | in Blood Pressure: 133/83 | | | mm/HgWeight: 258.0 | | | lb Gender: | | | MBSA: 2.30 m2 Order | | | ID: [id number] Wooling Machine Operator: Mauri Domingo [facility] | | | Referring Provider: Mellisa Rubalcava [facility] | | | Performed: Limited 2D, [...] | | | Report electronically signed by: [id number] Jen Ovalle MD, PhD | | | (03/17/2017, 1:53:40 PM) Final | | | | | |Report electronically signed by: [id number] Jen Ovalle MD, PhD (03/17/2017, | | |1:53:40 PM) | | | | | | | | | | | | Final | | + + -------+ + + | Procedure Note | + + | Interface, Cardiology Results - 03/17/2017 1:53 PM [facility] | | [facility] [address] [place] [address] | | [place], [place] [address] Pt Name: RON MCKEON Study Date/Time 03/17/2017 / 10:30:26 AMMRN: [id number] Most | | recent prior: 03/15/2017Acc #: [id number] No. previous echos: 1DOB: | | 1955 61 years Heart Rate: 139 bpmHeight: 69.0 in Blood | | Pressure: 133/83 mm/HgWeight: 258.0 lb Gender: MBSA: | | 2.30 m2 Order ID: [id number] Wooling Machine Operator: Mauri Domingo | | RDCSReferring Provider: [...] | | Scoring: Report electronically signed by: [id number] Jen Ovalle MD, PhD (03/17/2017, | | [...] | | | |Report electronically signed by: [id number] Jen Ovalle MD, PhD (03/17/2017, | |1:53:40 PM) | | | | | | | | Final | + + + + + + + | Performing | Address | City/State/Zipcode | Phone Number | | Organization | | | | + + + + + | [facility] | [address] | [place], [place] | | | CARDIOLOGY | [address] | [address] | | + + + + + [...] [facility] | [address] | [place], [place] | | | [facility] POINT OF CARE | [address] | [address] | | | TESTS | | | [...] [facility] | [address] | [place], [place] | | | [facility] POINT OF CARE | [address] | [address] | | | TESTS | | | [...] [facility] | [address] | [place] [address] | | | SERVICES, CORE | PARK [...] [facility] | [address] | [place] [address] | | | SERVICES, CORE | PARK [...] | + + + + + | [facility] | [address] | [place] [address] | | | SERVICES, ИРИНА | TABITHA [...] MAR[facility] | [address] | [place], [place] | | | RICARDO POINT OF CARE | [facility] | [address] | | | TESTS | | | [...] - MARQU[facility] | [address] | [place], [place] | | | RICARDO POINT OF CARE | [address] | [address] | | | TESTS | | | [...] + + + | EUL[facility] | [address] | [place], [place] | | | RICARDO POINT OF [facility] | [address] | [address] | | | TESTS | | | [...] [facility] | [address] | [place] [address] | | | SERVICES, CORE | TABITHA [...] [facility]OSPITAL [facility] | [address] | [place] [address] | | | SERVICES, CORE | [address] | | | + + + + + X-RAY PORTABLE CHEST 1 VIEW (03/17/2017 5:37 AM PDT) + + | Specimen | + + | | + + + + + | Narrative | Performed At | + + + | EXAM: IN CHEST 1 VIEW 03/17/17 04:53:29 HISTORY: On [...] | + + | Service Account, Arely Pascal Metrics In Interface - 03/17/2017 9:44 AM PDT EXAM: IN CHEST 1 | | VIEW 03/17/17 04:53:29 [...] BLUAM | [address] | [place], [place] | | | JULIANN SILVA OF CARE | [address] | [address] | | | TESTS | | | [...] [facility] | [address] | [place] [address] | | | SERVICESИРИНА | [address] [...] | | | LABORATORY | | | [place] CIT[employer] | | | SERVICES, | | | [...] | + + + + + | [facility] | [address] | [place] [address] | | | SERVICES, ИРИНА | TABITHA [...] HOSPITAL LAB[facility] | [address] | [place] [id number] | | | ИРИНА ANTOINE | TABITHA [...] (H) | 60 - 99 mg/dL | ELUOGIO - | | | GLUCOSE, | | [...] [facility] | [address] | [place], [place] | | | JULIANN SILVA OF CARE | [address] | [address] | | | TESTS | | | [...] [facility] | [address] | [place] [address] | | | SERVICES, CORE | PARK [...] | + + + + + | [facility] | [address] | [place] [address] | | | SERVICES, CORE | TABITHA [...] | + + + + + | [facility] | [address] | [place] [address] | | | SERVICES, CORE | TABITHA [...] HOSPITAL [facility] | [address] | [place] [address] | | | ARASH, ИРИНА | [address] [...] [facility] | [address] | [place] [address] | | | SERVICES, CORE | PARK [...] [facility] | [address] | [place] [address] | | | SERVICES, CORE | PARK [...] [facility] | [address] | [place] [address] | | | SERVICES, CORE | PARK [...] | + + + + + | [facility] | [address] | [place] [address] | | | SERVICES, CORE | TABITHA [...] HOSPITAL [facility] | [address] | [place] [address] | | | SERVICES, CORE | PARK [...] [facility] | [address] | [place] [address] | | | SERVICES, CORE | TABITHA [...] DEPT OF | [address] | [place], [place] | | | CARDIOLOGY | [address] | [address] | | + + + + + DX-IP-CNM-HB,POC RT (03/17/2017 12:44 AM PDT) + + [...] RODGERS | [address] | [place], [place] | | | RICARDO POINT OF CARE | [address] | [address] | | | TESTS | | | [...] MARRANDIAM | [address] | [place], [place] | | | JULIANN SILVA OF CARE | [facility] | [address] | | | TESTS | | | [...] BLUAM | [address] | [place], [place] | | | JULIANN SILVA OF CARE | [address] | [address] | | | TESTS | | | [...] | + + + + + | [facility] | [address] | [place] [address] | | | SERVICES, ИРИНА | TABITHA [...] [facility] | [address] | [place], [place] | | | RICARDO POINT OF CARE | [address] | [address] | | | TESTS | | | [...] ANA MARIA | [address] | [place], [place] | | | RICARDO POINT OF CARE | [address] | [address] | | | TESTS | | | [...] | + + + + + | [facility] | [address] | [place] [address] | | | SERVICES, CORE | TABITHA [...] MARIA | [address] | [place], [place] | | | JULIANN SILVA OF [place] | [address] | [address] | | | TESTS | | | [...] [facility]OSPITAL [facility] | [address] | [place] [address] | | | ИРИНА ANTOINE | TABITHA [...] MARIA | [address] | [place] | | | RICARDO POINT OF CARE | [address] | [address] | | | TESTS | | | [...] MARIA | [address] | [place] | | | JULIANN SILVA OF [place] | [facility] | [address] | | | TESTS | | | [...] | pause verifies correct patient, procedure, equipment, it support consultant | | | and site/side marked as [...] + + | [facility] | [address] | [place] [address] | | | SERVICES, CORE | PARK [...] [facility] | [address] | [place] [address] | | | SERVICES, CORE | PARK [...] [facility] | [address] | [place] [address] | | | SERVICES, CORE | PARK [...] [facility] | [address] | [place] [address] | | | SERVICES, CORE | PARK [...] | | | LABORATORY | | | [place] [employer] | | | SERVICES, | | | [...] | + + + + + | [facility] | [address] | [place] [address] | | | SERVICES, CORE | TABITHA [...] [facility] | [address] | [place] [address] | | | SERVICES, CORE | PARK [...] HOSPITAL LAB[facility] | [address] | [place] [address] | | | SERVICES, CORE | TABITHA [...] RODGERS | [address] | [place], [place] | | | JULIANN SILVA OF [place] | [address] | [address] | | | TESTS | | | [...] MARIA | [address] | [place] | | | JULIANN SILVA OF [place] | [facility] | [address] | | | TESTS | | | | + + + + + CAPILLARY BLOOD GLUCOSE (NO CHG), POC (03/16/2017 1:16 PM PDT) + +-------+ + + + | Component | Value | Ref Range | Performed | Pathologist | | | | | At | Signature | + +-------+ + + + | BLOOD | 90 | 60 - 99 mg/dL | [facility] [...] NINOSKAQUAM | [address] | [place], [place] | | | RICARDO POINT OF CARE | [address] | [address] | | | TESTS | | | [...] RODGERS | [address] | [place], [place] | | | GURINDER SILVA | [facility] | [address] | | | TESTS | | | [...] | + + + + + | [facility] | [address] | [place] [address] | | | SERVICES, ИРИНА | TABITHA [...] | | | LABORATORY | | | [place] CIT[employer]EN | | | SERVICES, | | | [...] HOSPITAL [facility] | [address] | [place] [address] | | | SERVICES, CORE | TABITHA [...] MARIA | [address] | [place], [place] | | | GURINDER SILVA | [facility] | [address] | | | TESTS | | | [...] HOSPITAL [facility] | [address] | [place] [address] | | | ИРИНА ANTOINE | TABITHA [...] MAR[facility] | [address] | [place] | | | JULIANN SILVA OF CARE | [facility] | [address] | | | TESTS | | | | + + + + + OPERATION RECORD (03/16/2017 9:30 AM PDT) + + | Procedure Note | + + | Dale Mak MD - 03/15/2017 3:42 PM PDT Date of Service: 03/15/2017 Attending | | Surgeon:Ron Powell MD. Criminalist Technician(s):Dale Mak MD. | | Preoperative Diagnoses: 1.Cardiogenic [...] cannulation with micropuncture | | wire. A 7-Cameroonian sheath was placed in an antegrade direction down the SFA for distal | | perfusion. A 19-Cameroonian arterial cannula was placed in a retrograde [...] 03/15/2017 15:23:00DT: 03/15/2017 15:42:27Job #: | | [id number] | | | |A 19-Cameroonian arterial cannula was placed in a retrograde [...] |HS/MODL | | | | | | /[id number] | + + CBC (HEMOGRAM) ONLY (03/16/2017 [...] [facility] | [address] | [place] [address] | | | SERVICES, CORE | PARK [...] [facility] | [address] | [place] [address] | | | SERVICES, CORE | PARK [...] | + + + + + | [facility] | [address] | [place] [address] | | | SERVICES, CORE | TABITHA [...] MARQU[facility] | [address] | [place] | | | JULIANN SILVA [place] | [address] | [address] | | | TESTS | | | [...] BLUAM | [address] | [place], [place] | | | JULIANN SILVA OF CARE | [facility] | [address] | | | TESTS | | | [...] R[facility] | [address] | [place] | | | RICARDO POINT OF CARE | [address] | [address] | | | TESTS | | | | + + + + + X-RAY PORTABLE CHEST 1 VIEW (03/16/2017 5:44 AM PDT) + + | Specimen | + + | | + + + + + | Narrative | Performed At | + + + | EXAM: IN CHEST 1 VIEW HISTORY: Evaluate cannula placement. heart | [facility] | | failure. COMPARISON: Yesterday FINDINGS: Endotracheal | RADIOLOGY VOICE | | tube, Tiffin-Олег catheter and enteric tube remain in place. [...] Note | + + | Service Account, Vinted In Interface - 03/16/2017 8:27 AM PDT EXAM: IN CHEST 1 | | VIEW HISTORY: Evaluate cannula placement. heart failure.COMPARISON: YesterdayFINDINGS: | | Endotracheal tube, Tiffin-Олег catheter and enteric tube remain in place. [...] MARIA | [address] | [place], [place] | | | RICARDO POINT OF CARE | [address] | [address] | | | TESTS | | | [...] RODGERS | [address] | [place] | | | JULIANN SILVA OF [facility] | [facility] | [address] | | | TESTS | | | | + + + + + HU-WZ-QCO-KARY ISIDRO RT (03/16/2017 3:42 AM PDT) + [...] MARQU[facility] | [address] | [place], [place] | | | JULIANN SILVA OF [place] | [address] | [address] | | | TESTS | | | [...] RODGERS | [address] | [place], [place] | | | RICARDO POINT OF CARE | [address] | [address] | | | TESTS | | | [...] | + + + + + | [facility] | [address] | [place] [address] | | | SERVICES, CORE | TABITHA [...] RODG[facility] | [address] | [place], [place] | | | JULIANN SILVA [place] | [address] | [address] | | | TESTS | | | [...] HOSPITAL [facility] | [address] | [place] [address] | | | SERVICES, ИРИНА | TABITHA [...] [facility] | [address] | [place] [address] | | | SERVICES, CORE | PARK [...] | | | LABORATORY | | | [employer] CIT[employer] | | | SERVICES, | | | [...] HOSPITAL [facility] | [address] | [place] [address] | | | SERVICES, CORE | TABITHA [...] [facility] | [address] | [place] [address] | | | SERVICES, CORE | PARK [...] HOSPITAL LAB[facility] | [address] | [place] [address] | | | SERVICES, CORE | PARK [...] HOSPITAL LAB[facility] | [address] | [place] [address] | | | ARASH, ИРИНА | TABITHA [...] HOSPITAL [facility] | [address] | [place] [address] | | | SERVICES, CORE | TABITHA [...] R[facility] | [address] | [place] | | | JULIANN SILVA OF CARE | [address] | [address] | | | TESTS | | | [...] [facility] | [address] | [place] [address] | | | SERVICES, CORE | PARK [...] [facility] | [address] | [place] | | | JULIANN SILVA OF [facility] | [address] | [address] | | | TESTS | | | [...] | + + + + + | [facility] | [address] | [place] [address] | | | SERVICES, CORE | TABITHA [...] | | | LABORATORY | | | [employer] CIT[employer]EN | | | SERVICES, | | | [...] AST CMNT | No Hemo | | [facility] | | | | [...] + + + + | [facility] | [address] | [place] [address] | | | SERVICES, CORE | [address] | | | + + + + + TN-FF-GQE-HB,POC RT (03/16/2017 12:22 AM PDT) + + [...] MAR[facility] | [address] | [place] | | | RICARDO POINT OF CARE | [address] | [address] | | | TESTS | | | [...] + + + | [facility] | [address] | [place] | | | RICARDO POINT OF CARE | [address] | [address] | | | TESTS | | | [...] [facility] | [address] | [place] | | | RICARDO POINT OF CARE | [address] | [address] | | | TESTS | | | [...] E[facility]OGIO [facility] | [address] | [place] | | | RICARDO POINT OF [facility] | [address] | [address] | | | TESTS | | | | + + + + + X-RAY PORTABLE CHEST 1 VIEW (03/15/2017 9:44 PM PDT) + + | Specimen | + + | | + + + + + | Narrative | Performed At | + + + | EXAM: IN CHEST 1 VIEW HISTORY: Evaluate new endotracheal [...] | + + | Service Account, Arely Pascal Metrics In Interface - 03/16/2017 8:27 AM PDT EXAM: IN CHEST 1 | | VIEW HISTORY: Evaluate [...] MARIA | [address] | [place] | | | JULIANN SILVA OF [place] | [address] | [address] | | | TESTS | | | [...] MARIA | [address] | [place] | | | RICARDO POINT OF CARE | [address] | [address] | | | TESTS | | | [...] [facility] | [address] | [place] [address] | | | SERVICES, CORE | PARK [...] [facility] | [address] | [place] [address] | | | SERVICES, CORE | PARK [...] [facility] | [address] | [place] [address] | | | SERVICES, [facility] | [address] | | | + + + + + ENDOTRACHEAL INTUBATION (03/15/2017 9:03 PM PDT) + + + | Narrative | Performed At | + + + | Everardo Cinrton MD 03/15/2017 9:03 PM ENDOTRACHEAL | | [...] [facility] | [address] | [place], [place] | | | JULIANN SILVA OF [place] | [address] | [address] | | | TESTS | | | | + + + + + IL-IQ-CWG-HB,POC RT (03/15/2017 7:39 PM PDT) + + [...] [facility] | [address] | [place] | | | JULIANN SILVA OF [place] | [address] | [address] | | | TESTS | | | [...] R[facility] | [address] | [place] | | | RICARDO POINT OF CARE | [address] | [address] | | | TESTS | | | [...] [facility] | [address] | [place] | | | HILL, POINT OF CARE | [address] | [address] | | | TESTS | | | | + + + + + X-RAY PORTABLE CHEST 1 VIEW (03/15/2017 5:51 PM PDT) + + | Specimen | + + | | + + + + + | Narrative | Performed At | + + + | STUDY: IN CHEST 1 VIEW 03/15/17 17:40:08 COMPARISON: 03/15/17 at | [facility] | | 3:52 PM. HISTORY: Line [...] Interface - 03/15/2017 6:20 PM PDT STUDY: IN CHEST 1 | | VIEW 03/15/17 17:40:08COMPARISON: [...] given by: Power of | | | invoicing specialist Patient identity confirmed per policy: Yes Team Pause: | | | Immediatly prior to the procedure a pause per protocol was called. A | | | pause verifies correct patient, procedure, equipment, it support consultant | | | and site/side marked as [...] modified Seldinger technique (a | | | bqltclkq-fgcy-jcv-nqtbac-zkbd-wnhb-rtvobkk-cwu-jphmceam) was used for | | | vessel [...] Name: Ron Mckeon MRN: | | | [id number] 03/15/2017 Time: 5:26 PM Diagnosis: shock At [...] Jose Ramon Alvarado | | | R2, [facility] Emergency Medicine Personal Pager: [phone] | | | | | + + [...] HOSPITAL LAB[facility]ORY | [address] | [place] [address] | | | ИРИНА ANTOINE | TABITHA [...] RODG[facility] | [address] | [place] | | | RICARDO POINT OF CARE | [address] | [address] | | | TESTS | | | [...] BLUAM | [address] | [place] | | | JULIANN SILVA OF CARE | [facility] | [address] | | | TESTS | | | | + + + + + X-RAY PORTABLE CHEST 1 VIEW (03/15/2017 4:03 PM PDT) + + | Specimen | + + | | + + + + + | Narrative | Performed At | + + + | EXAM: IN CHEST 1 VIEW 03/15/17 15:42:37 HISTORY: ECMO [...] Interface - 03/15/2017 6:18 PM PDT EXAM: IN CHEST 1 | | VIEW 03/15/17 15:42:37 [...] [facility] | [address] | [place] | | | RICARDO POINT OF [facility] | [address] | [address] | | | TESTS | | | [...] RODGERS | [address] | [place] | | | JULIANN SILVA OF CARE | [facility] | [address] | | | TESTS | | | [...] MARIA | [address] | [place], [place] | | | RICARDO POINT OF CARE | [facility] | [address] | | | TESTS | | | [...] [facility] | [address] | [place] [address] | | | SERVICES, CORE | TABITHA [...] | + + + + + | [facility] | [address] | [place] [address] | | | SERVICES, CORE | TABITHA [...] [facility] | [address] | [place] [address] | | | SERVICES, CORE | PARK [...] [facility] | [address] | [place] [address] | | | SERVICES, CORE | PARK [...] | | | LABORATORY | | | [place] [employer] | | | SERVICES, | | | [...] | + + + + + | [facility] | [address] | [place] [address] | | | SERVICES, CORE | TABITHA [...] Division of Cardiothoracic Surgery | | | [facility] - Mail Code [id number] [id number] | | | [place] [id number] | | + + + X-RAY PORTABLE CHEST 1 VIEW (03/15/2017 2:32 PM PDT) + + | Specimen | + + | | + + + + + | Narrative | Performed At | + + + | STUDY: IN CHEST 1 VIEW 03/15/17 14:21:08 COMPARISON: 03/15/17. | [facility] | | HISTORY: Introducer placement-June when [...] Note | + + | Service Account, Radigestigon Res In Interface - 03/15/2017 2:46 PM PDT STUDY: IN CHEST 1 | | VIEW 03/15/17 14:21:08COMPARISON: [...] + + + + | PRODUCT | [id number] | | [facility] | | | UNIT [...] + + + + | EXPIRATION | [id number] | | [facility] | | | DATE [...] + + + + | BLOOD | [id number] | | [facility] | | | PRODUCT [...] | + + + + + | [facility] | [address] | [place] [address] | | | SERVICES, | [address] [...] + + + + | PRODUCT | [id number] | | [facility] | | | UNIT [...] + + + + | EXPIRATION | [id number] | | [facility] | | | DATE [...] + + + + | BLOOD | [id number] | | [facility] | | | PRODUCT [...] | + + + + + | [facility] | [address] | [place] [address] | | | SERVICES, | [address] [...] + + + + | PRODUCT | [id number] | | [facility] | | | UNIT [...] + + + + | EXPIRATION | [id number] | | [facility] | | | DATE [...] + + + + | BLOOD | [id number] | | [facility] | | | PRODUCT [...] + + | [facility] | [address] | [place] [address] | | | SERVICES, | [address] [...] + + + + | PRODUCT | [id number] | | [facility] | | | UNIT [...] + + + + | EXPIRATION | [id number] | | [facility] | | | DATE [...] + + + + | BLOOD | [id number] | | [facility] | | | PRODUCT [...] [facility] | [address] | [place] [address] | | | SERVICES, | [address] | | | | TRANSFUSION MEDICINE | | | | + + + + + UP-ZU-XKM-HB,POC RT (03/15/2017 1:23 PM PDT) + + [...] R[facility] | [address] | [place] | | | JULIANN SILVA OF [place] | [address] | [address] | | | TESTS | | | [...] [facility] | [address] | [place] | | | RICARDO POINT OF CARE | [address] | [address] | | | TESTS | | | [...] Performed At | + + + | [facility] | [facility] | | [facility] Adult Echocardiography | CARDIOLOGY | | Laboratory [address] [place] [address], | | | [place] [address] Pt Name: | | | RON Neena MCKEON Study Date/Time 03/15/2017 / 12:54:21 | | [id number] Most recent | | | prior: -Acc #: [id number] No. previous | | | echos: 0DOB: 1955 61 years Heart Rate: | | | 145 bpmHeight: Blood | | | Pressure: 90/67 mm/HgWeight: 249.0 | | | lb Gender: | | | MBSA: 2.34 m2 Order | | | ID: [id number] Wooling Machine Operator: Vahid NOBLES | | | Referring [...] Report electronically signed by: | | | [id number] Yajaira Johnson MD (03/15/2017, 3:38:52 PM) Final | | | | | | | | | | | | Final | | + + + + + | Procedure Note | + + | Interface, Cardiology Results - 03/15/2017 3:38 PM [facility] | | [facility] Echocardiography Laboratory [address] [place] [address] | | [place], [place] [address] Pt Name: RON Chaudhary | | MIKE Study Date/Time 03/15/2017 / 12:54:21 PMMRN: [id number] Most | | recent prior: -Acc #: [id number] No. previous echos: 0DOB: 1955 61 | | years Heart Rate: 145 bpmHeight: Blood Pressure: 90/67 | | mm/HgWeight: 249.0 lb Gender: MBSA: 2.34 m2 | | Order ID: [id number] Wooling Machine Operator: Vahid Parmar RCSReferring Provider: | | [...] values Report electronically signed by: | | [id number] Yajaira Johnson MD (03/15/2017, 3:38:52 PM) Final [...] | | | |Report electronically signed by: [id number] Yajaira Johnson MD (03/15/2017, 3:38:52 PM) | | | | | | | | Final | + + + + + + + | Performing | Address | City/State/Zipcode | Phone Number | | Organization | | | | + + + + + | [facility] | [address] | [place], [place] | | | CARDIOLOGY | [address] | [address] | | + + + + + X-RAY PORTABLE CHEST 1 VIEW (03/15/2017 12:46 PM PDT) + + | Specimen | + + | | + + + + + | Narrative | Performed At | + + + | STUDY: IN CHEST 1 VIEW 03/15/17 12:12:08 COMPARISON: None. [...] Interface - 03/15/2017 1:10 PM PDT STUDY: IN CHEST 1 | | VIEW 03/15/17 12:12:08COMPARISON: [...] DEPT OF | [address] | [place], [place] | | | CARDIOLOGY | [address] | [address] | | + + + + + [...] [facility] | [address] | [place] [address] | | | SERVICES, | [address] [...] [facility] | [address] | [place] [address] | | | SERVICES, | [address] [...] + + + + + | [facility] | [address] | [place] [address] | | | SERVICES, CORE | TABITH[address] [...] HOSPITAL LABORATORY | [address] | [place] [address] | | | ИРИНА ANTOINE | TABITHA [...] | + + + + + | [facility] | [address] | [place] [address] | | | SERVICES, | [address] [...] [facility] | [address] | [place] [address] | | | SERVICES, ИРИНА | TABITHA [...] [facility] | [address] | [place] [address] | | | SERVICES, CORE | TABITHA [...] [facility] | [address] | [place] [address] | | | SERVICES, CORE | PARK [...] | | | LABORATORY | | | [employer] [employer] | | | SERVICES, | | | [...] HOSPITAL [facility]ORY | [address] | [place] [address] | | | SERVICES, CORE | [address] | | | + + + + + XN-RZ-HGZ-HB,POC RT (03/15/2017 12:16 PM PDT) + + [...] [facility] | [address] | [place], [place] | | | [facility] | [facility] | [id number] | | | TESTS | | | [...] | | 03/15/17 at 1202, Until [facility] 04/02/17 | | | at 2030, [...] | | | | | Until [facility] 04/02/17 at 203, | | | [...] | | | | | Until [facility] 04/02/17 at 2030, severe | | [...] | | | First dose on [facility] 04/02/17 at | | | 2100, Until Discontinued | | + +---+ | | | + +---+ documented in this encounter
--- OUTSIDE RECORDS SUMMARY | ~2019-01-22 | XMS | Encounter Summary ---
Demographics + + + | Address | [address] | | | [place] [address] | + + + | Home Phone [...] | | | | | [place] [address] | | + + + + + Care Team Providers + +------+ + | Care Community Organization Director Name | Role | Phone | [...] | | | | | involving | [place], [place] | | | | | | left main | [address] | | | | | | coronary | Phone: | | | | | | artery (HCC) | [phone] | | | | | | Procedures | Fax: | | | | | | | [phone] | | | | | | OCCUPATIONAL [...] | | | | elevation | [address] [facility] | | | | | | myocardial | [address] | | | | | | infarction | Rd | | | | | | involving | [place], [place] | | | | | | left main | [address] | | | | | | coronary | Phone: | | | | | | artery (HCC) | [phone] | | | | | | Procedures | Fax: | | | | | | PHYSICAL | [phone] | | | | | | THERAPY [...] REHAB - [facility] | ANTHONY Av[address] | [address] | | | | | | [address] | [place], | | | | | | [place], [place] | [place] [address] | | | | | | [address] | Phone: | | | | | | Phone: | [phone] | | | | | | [phone] | Fax: | | | | | | Fax: | [phone] | | | | | | [phone] | | +--------+--------+ + + + + [...] | | | | | Ave | [place], | | | | | | [place], [place] | [place] [address] | | | | | | [address] | Phone: | | | | | | Phone: | [phone] | | | | | | [phone] | Fax: | | | | | | Fax: | [phone] | | | | | | [phone] | | +--------+--------+ + + + + [...] | | | 04/02/ | | HOSP[facility] [place], | [place], [place] | | | 2016 | | [place] [address] | [address] | | | | | [phone] | [phone] | | | | | | | | | | | | Rolly Reeves, | | | | | | [address] | | | | | | [address] [place], [place] | | | | | | [address] | | | | | | [phone] | | | | | | | | | | | | Terry Ochoa MD | | | | | | [address] | | | | | | [place], [place] | | | | | | [address] | | | | | | [phone] | | | | | | | | | | | | Monika Cooper, | | | | | | Rehana Downey MD,MPH [address] | | | | | [address] | | | | | | Rd [place], [place] | | | | | | [address] | | | | | | [phone] | | | | | | | | | | | | Ariana Bose, | | | | | | DO [address] | | | | | | [address] | | | | | | [place], [place] | | | | | | [address] | | | | | | [phone] | | | | | | | | | | | | Aria Rojas MD | | | | | | [address] | | | | | | [address] [place], | | | | | | [place] [address] | | | | | | [phone] | | | | | | | [...] 2:26 PM PDT CLINICAL HOSPITALIST DISCHARGE SUMMARY [facility] Discharging Provider: Aria Rojas MD Discharging [...] follow up ludmila miller with a local broom builder in [place]. #Acute cardiogenic shock in the setting ofSTEMI [...] 44 to 32 during first day at [facility] , with addition decline to 24 the [...] (noted on o utside records). Patient on Braman 10/325 q8 as outpatient. Was receiving scheduled [...] Fax Number [facility] Yes [address] [place] [address] [phone] Medina Roger RN 04/02/2017 11:31 Medina Roger RN, 04/02/2017 11:28 AM: Spoke with Latricia, 7 day auth # [id number] has been provided. Contacted Tanisha at facility , arranging anticipated medicaid transport by stretcher at 2 pm today. Spoke with patient and souse concerning dc; they are both in agreement. Medina Roger, RN, 04/02/2017 9:20 AM: Contacted Latriciabettina Landry [phone] referencing auth# for SNF placement. Medina Roger RN, 04/01/2017 11:42 AM: Spoke with Malathi [phone], at facility admissions. Patient is accepted to facility. 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 F&MS working with patient and family to add Medicaid ser vices to benefits. When added patient will have travel benefit. CM contacted Shahab [place] re [employer]. Tamia Van, RN, 03/30/2017 1:21 PM: Received VM from Emily Terrell CM with [facility] to send referral to this location . Referral made, awaiting response. Follow Up: Schedule the following appointment(s) when you get home Follow up with [facility] . Specialties: [facility], [facility] Contact information [address] [place] [address] Follow up with LAUREN CHESTER MD. Go on 04/07/2017. Specialty: Cardiology Why: at 8:30 AM to establish Cardiology follow up Contact information [facility] [address] [address] Aria Rojas MD Division of Hospital Medicine [facility] I spent 60 [...] and chronic pain who was transferred to [facility] on 03/15 s/p STEMI with cardiogeni c [...] will need Life Vest follow up with broom builder in [place] on discharge - appr eciate cardiology assistance [...] hematoma, but possibly some candidal infection/intertrigo. On Braman 10/325 Q8H as an outp atient. -Continue [...] 44 to 32 during first day at [facility], with addition decline to 24 th e [...] Aria Rojas MD Division of Hospital Medicine [facility] Pager [phone] I spent 36 minutes on the patient [...] and chronic pain who was transferred to [facility] on 03/15 s/p STEMI with cardiogeni c [...] will need Life Vest follow up with broom builder in [place] on discharge - appr iate cardiology assistance [...] hematoma, but possibly some candidal infection/interrigo. On Braman 10/ Q8H as an outpa tient. -Continue [...] discharge. -CM looking for skilled placement in [place] near patient's home; appreciate assistance At risk for malnutrition Very little PO intake but reportedly improving. Previously had dobhoff feeding tube in the CVICU.Nutrition assistance appreciated. -Calorie count ongoing -Encouraging PO intake Normocytic anemia Hct dropped abruptly from 44 to 32 during first day at [facility], with addition decline to 24 th e [...] Aria Rojas MD Division of Hospital Medicine [facility] Pager [phone] I spent 36 minutes on the patient encounter today, >50% in counseling of the patient's on the above plan of care and in coordination of care on the arizmendi with nursing and Heart Fa il[facility]. Ariana Ivy DO - 03/30/2017 5:49 PM PDT CLINICAL HOSPITALIST SERVICE PROGRESS NOTE PATIENT'S NAME/MRN: Ron Mckeon/[id number] HOSPITAL DAY: #15 24-HOUR EVENTS & SUBJECTIVE: -patient complained of typical anginal chest pain and had STEMI code last night, anterior S T elevation on serial EKGs, given 325mg ASA, started on heparin drip (had been turned off fo r JAVON thrombus yesterday afternoon with warfarin therapeutic), patient went to the laboratory monitor -on angiography, interventionalists noted "patent stent traversing [...] 7.5 mg, 7.5 mg, oral, QPM, Ariana [place], OBJECTIVE: Last Vitals: BP 101/56 | Pulse [...] daily - Patient will follow up with broom builder in [place] on discharge; appreciate cardiolo adriana assistance with [...] stenosis (noted on o utside records, on Braman q8 as outpatient) Improved today -continue oxycodone [...] 44 to 32 during first day at [facility] , with addition decline to 24 the [...] delivery/approval of lifevest, [facility] bed Ariana Bose DO Control Room Technicianskilled nursing case manager Clinical Hospitalist and Medicine Teaching Service Division of Hospital Medicine [facility] Pager [phone] [facility] DEPARTMENT: Hosp- [id number] Place of Service: Date of Service: 03/26/2017 CSN: [id number] Modifiers:GC Resident Involved: Yes Suggested CPT: 60598 Subsequent Visit Detailed/High complexity 35 min Cristi [...] patient's significant recent [place], we activated the laboratory monitor. Patient received 325 mg ASA at bedside and was briefly on heparin which has since been disc ontinued. Per cardiology will continue daily 81 mg ASA, plavix and warfarin. Continue to t rend troponins as well. I spent 30 minutes with this patient with >50% of the [facility], evaluating studies and coordinating care w/ cardiology.Electronical ly signed by Ivette Chaudhry MD at 03/30/2017 6:24 AM Gerson Oseguera MD - 03/30/2017 4:31 AM PDTCardiology Preliminary Procedure Note (Full report to follow) Primary Care Provider: Jamal Guerrero MD Referring Provider: No Referring Provider Per Patient Glass Block Bender Staff: Katarina Ngo M.D. Procedure(s): Coronary Angiography [...] None Complications: None Hemostasis: Manual compression in laboratory monitor. Site: [facility] Recommendations: Patient Status: Inpatient Usual post cath care. Ariana Ivy D O - 03/29/2017 9:30 AM PDT CLINICAL HOSPITALIST SERVICE PROGRESS NOTE PATIENT'S NAME/MRN: Ron Mckeon/[id number] HOSPITAL DAY: #14 24-HOUR EVENTS & SUBJECTIVE: [...] stenosis (noted on o utside records, on Braman 10 q8 as outpatient) -continue oxycodone 10mg [...] 44 to 32 during first day at [facility] , with addition decline to 24 the [...] arm, midline left arm Ariana Bose DO Control Room Technicianskilled nursing case manager Clinical Hospitalist and Medicine Teaching Service Division of Hospital Medicine [facility] Pager [phone] [facility] DEPARTMENT: Hosp- [id number] Place of Service: - Date of Service: 03/26/2017 CSN: [id number] Modifiers:GC Resident Involved: Yes Suggested CPT: 64644 Subsequent Visit Detailed/High complexity 35 min Ariana Ivy DO - 03/28/2017 8: 06 AM PDT CLINICAL HOSPITALIST SERVICE PROGRESS NOTE PATIENT'S NAME/MRN: Ron Mckeon/[id number] HOSPITAL DAY: #13 24-HOUR EVENTS & SUBJECTIVE: [...] stenosis (noted on o utside records, on Braman q8 as outpatient) Improving L groin pain [...] 44 to 32 during first day at [facility] , with addition decline to 24 the [...] arm, midline left arm Ariana Bose DO Control Room Technicianskilled nursing case manager Clinical Hospitalist and Medicine Teaching Service Division of Hospital Medicine [facility] Pager [phone] [facility] DEPARTMENT: Hosp- [id number] Place of Service: - Date of Service: 03/26/2017 CSN: [id number] Modifiers:GC Resident Involved: Yes Suggested CPT: 91476 Subsequent Visit Detailed/High complexity 35 min Ariana [...] 44 to 32 during first day at [facility] , with addition decline to 24 the [...] arm, midline left arm Ariana Bose DO Control Room Technicianskilled nursing case manager Clinical Hospitalist and Medicine Teaching Service Division of Hospital Medicine [facility] Pager [phone] [facility] DEPARTMENT: Hosp- [id number] Place of Service: - Date of Service: 03/26/2017 CSN: [id number] Modifiers:GC Resident Involved: Yes Suggested CPT: 85702 Subsequent Visit Detailed/High complexity 35 min Chapis [...] 44 to 32 during first day at [facility] , with addition decline to 24 the [...] arm, midline left arm Ariana Bose DO Control Room Technicianskilled nursing case manager Clinical Hospitalist and Medicine Teaching Service Division of [facility] Medicine [facility] Pager [phone] [facility] DEPARTMENT: Hosp- [id number] Place of Service: - Date of Service: 03/26/2017 CSN: [id number] Modifiers:GC Resident Involved: Yes Suggested CPT: 20195 Subsequent Visit Detailed/High complexity 35 min Wan Cano MD - 03/25/2017 3:07 PM PDT . Cardiovascular Intensive Care Unit Attending Progress Note CVICU D2 Assigned #[id number] ICU Admission Reason Most Recent Value ICU [...] artery. ANY X2 placed in outs surinder laboratory monitor along with IABP. Arrived in cardiogenic shock, [...] Pager Mellisa Haji MD Admitting Provider Cardiology 96160 Zelalem Del Toro MD ICU PM Attending Anesthesiology 42464 Code Status Code Status Full Code The Advanced Care Note for this patient can be found under the notes tab in chart review. Quality section Reardon necessity reviewed: Hourly/Accurate measurement of urinary output for clinical manage ment of critically ill patients Wan Deleon MD, JOHN, ERVIN Cardiovascular Intensive Care Unit [address] [place], [place] [address] I have spent a total of 38 [...] xceptions/additions as noted. Date of Service: 03/25/2017 [facility] DEPARTMENT: ANE ICU CARDIAC Place of Service:- Inpatient CSN: [id number] Suggested Modifier: GC - Resident Involved Suggested CPT: TO AUTOMOTIVE PARTS COUNTER ASSISTANT Jose Ramon Khan MD - 03/24/2017 10:54 AM PDT . Cardiovascular Intensive Care Unit Team Progress Note CVICU D2 Assigned #[id number] ICU Admission Reason Most Recent Value ICU [...] artery. ANY X2 placed in outs surinder laboratory monitor along with IABP. Arrived in cardiogenic shock, [...] & Plan Patient went into VFib during laboratory monitor procedure at [facility]. Was shocked 17 times Targeted temperature management [...] Patient was difficult intubation at outside laboratory monitor. -secretions improving, cough strong -s/p 7 days [...] Pager Mellisa Haji MD Admitting Provider Cardiology 06861 Zelalem Del Toro MD ICU PM Attending Anesthesiology 96564 The Advanced Care Note for this patient [...] Ramon Alvarado MD Author:Jose Ramon Alvarado MD [address] [address] [place] [address]Cummnixdzvtngu signed by Jose Ramon Alvarado MD at 03/24/2017 11:00 AM Wan Cano MD - 03/24/2017 9:47 AM PDTFormatting of this note might be diff erent from the original. Cardiovascular Intensive Care Unit Attending Progress Note CVICU D2 Assigned #[id number] ICU Admission Reason Most Recent Value ICU [...] artery. ANY X2 placed in outs surinder laboratory monitor along with IABP. Arrived in cardiogenic shock, [...] Pager Mellisa Haji MD Admitting Provider Cardiology 90805 Zelalem Del Toro MD ICU PM Attending Anesthesiology 52194 Code Status Code Status Full Code The Advanced Care Note for this patient can be found under the notes tab in chart review. Quality section Reardon necessity reviewed: Hourly/Accurate measurement of urinary output for clinical manage ment of critically ill patients Wan Deleon MD, JOHN, ERVIN Cardiovascular Intensive Care Unit [address] [place] [address] I have spent a total of 42 [...] xceptions/additions as noted. Date of Service: 03/24/2017 [facility] DEPARTMENT: [facility] ICU CARDIAC Place of Service:- Inpatient CSN: [id number] Suggested Modifier: GC - Resident Involved Suggested CPT: TO AUTOMOTIVE PARTS COUNTER ASSISTANT Author:Wan Deleon Md, [address] [address]Suhrzxbenxweuy signed by Wan Deleon MD at 03/24/2017 9:49 AM Tamia De La Paz PA-C - 03/23/2017 11:54 PM PDTFormatting of this note might be diff erent from the original. Cardiovascular Intensive Care Unit Clinical Update Note Team: D2 Team Pager: [phone] Attending: Katey Pt Name: Ron Mckeon ID: Abbreviated HPI Abbreviated HPI / Daily Assessment Ron Mckeon is a 61 year old man with acute cardiogenic shock in the setting of acu te STEMI from thrombosed left main coronary artery. Initially had lesion in proximal LAD and distal LM, but then acutely thrombosed his left main coronary artery. ANY X2 placed in outs surinder laboratory monitor along with IABP. Arrived in cardiogenic shock, [...] Unit Team Progress Note CVICU D2 Assigned #[id number] ICU Admission Reason Most Recent Value ICU [...] artery. ANY X2 placed in outs surinder laboratory monitor along with IABP. Arrived in cardiogenic shock, [...] dc'd 03/23 STEMI (ST elevation myocardial infarction) ([facility]) Yes Overview Xience Alpine 3.0 [...] & Plan Patient went into VFib during laboratory monitor procedure at [facility]. Was shocked 17 times Targeted temperature management [...] Patient was difficult intubation at outside laboratory monitor. -fevering nightly, cultures negative, WBC stable -secretions [...] Pager Mellisa Haji MD Admitting Provider Cardiology 09668 The Advanced Care Note for this patient [...] Ramon Alvarado MD Author:Jose Ramon Alvarado MD [address] [id number] signed by Jose Ramon Alvarado MD at 03/23/2017 11:41 AM PDTWan Deleon MD - 03/23/2017 9:51 AM PDTFormatting of this note might be diff erent from the original. Cardiovascular Intensive Care Unit Attending Progress Note CVICU D2 Assigned #[id number] ICU Admission Reason Most Recent Value ICU [...] artery. ANY X2 placed in outs surinder laboratory monitor along with IABP. Arrived in cardiogenic shock, [...] Pager Mellisa Haji MD Admitting Provider Cardiology 22167 Code Status Code Status Full Code The [...] ERVIN Cardiovascular Intensive Care Unit [facility] [place] [address] I have spent a total of 44 [...] xceptions/additions as noted. Date of Service: 03/23/2017 [facility] DEPARTMENT: [facility] ICU CARDIAC Place of Service:- Inpatient CSN: [id number] Suggested Modifier: GC - Resident Involved Suggested CPT: TO AUTOMOTIVE PARTS COUNTER ASSISTANT Tamia De La Paz PA-C - 03/22/2017 7:58 PM PDT . Cardiovascular Intensive Care Unit Clinical Update Note Team: D2 Team Pager: [phone] Attending: Abdulaziz Merrill Name: Ron Mckeon ID: [...] Unit Attending Progress Note CVICU D2 Assigned #[id number] ICU Admission Reason Most Recent Value ICU [...] Pager Mellisa Haji MD Admitting Provider Cardiology 04433 Code Status Code Status Full Code Quality section A-Line necessity reviewed: Noej-lu-fcjk blood pressure monitoring Reardon necessity reviewed: Hourly/Accurate [...] Date of Service: 03/22/2017 Author:Anurag Ashby MD [address] [address]Lragpszkxjyrvg signed by Anurag Ashby MD at 03/22/2017 11:07 AM P Macho Sellers MD - 03/22/2017 11:00 AM PDT Cardiovascular Intensive Care Unit Team Progress Note CVICU D2 Assigned #[id number] ICU Admission Reason Most Recent Value ICU [...] & Plan Patient went into VFib during laboratory monitor procedure at [facility]. Was shocked 17 times Targeted temperature management [...] Patient was difficult intubation at outside laboratory monitor. -vanc zosyn stopped 03/17 -fever 38.3 last [...] Pager Mellisa Haji MD Admitting Provider Cardiology 53783 This patient does not have an Advanced Care Note for this Admission. Please use the Goal of care section of your ICU navigator to document the advanced care discussion. Quality section A-Line necessity reviewed: Iigo-pc-nixo blood pressure monitoring Reardon necessity reviewed: Hourly/Accurate measurement of urinary output for clinical manage ment of critically ill patients FAST HUG Feeding: Tube Feeds: Replete @ 55 mL/hr Analgesia: APAP, hydromorphone PRN Sedation: N/A Thromboprophylaxis: Heparin infusion Head of Bed: Head of Bed >30 degrees Ulcer Prophylaxis: Famotidine Glycemic Control: insulin infusion Created by Macho Gaytan MD Author:Macho Gaytan MD [address] [address]Zvghehfizoszgg signed by Macho Gaytan MD at 03/23/2017 12:35 PM PDTT Tamia leon PA-C - 03/21/2017 7:02 PM PDTFormatting of this note might be different f rom the original. Cardiovascular Intensive Care Unit Clinical Update Note Team: D2 Team Pager: [phone] Attending: Abdulaziz Merrill Name: Ron Mckeon ID: [...] Opens eyes, nods head. 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 Was shocked 17 times Targeted temperature management [...] Patient was difficult intubation at outside laboratory monitor. -vanc zosyn stopped 03/17 -fever 38.3 last [...] Pager Mellisa Haji MD Admitting Provider Cardiology 33094 This patient does not have an Advanced Care Note for this Admission. Please use the Goal of care section of your ICU navigator to document the advanced care discussion. Quality section A-Line necessity reviewed: Qwbn-ih-khvy blood pressure monitoring CVC necessity reviewed: Hemodynamic [...] by Macho Gaytan MD Author:Macho Gaytan MD [address] [address]Cwnhthfphevzwb signed by Macho Gaytan MD at 03/21/2017 1:43 PM Anurag Paredes MD - 03/21/2017 12:22 PM PDT Cardiovascular Intensive Care Unit Attending Progress Note CVICU D2 Assigned #[id number] ICU Admission Reason Most Recent Value ICU [...] Pager Mellisa Haji MD Admitting Provider Cardiology 87878 Code Status Code Status Full Code Quality section A-Line necessity reviewed: Bsih-nt-bdcl blood pressure monitoring CVC necessity reviewed: Plan [...] Date of Service: 03/21/2017 Author:Anurag Ashby MD [address] [address] [place] [address]Bdzgygsjvcgmal signed by Anurag Ashby MD at 03/21/2017 12:22 PM P Jose Ramon Coburn MD - 03/20/2017 12:36 PM PDTFormatting of this note might be differen t from the original. Cardiovascular Intensive Care Unit Team Progress Note CVICU D2 Assigned #[id number] ICU Admission Reason Most Recent Value ICU [...] & Plan Patient went into VFib during laboratory monitor procedure at [facility]. Was shocked 17 times Targeted temperature management [...] Patient was difficult intubation at outside laboratory monitor. -vanc zosyn stopped 03/17 -fever 38.3 last [...] Pager Mellisa Haji MD Admitting Provider Cardiology 04714 Quality section A-Line necessity reviewed: Qapa-hl-xhnx blood pressure monitoring CVC necessity reviewed: Hemodynamic [...] Ramon Alvarado MD Author:Jose Ramon Alvarado MD [address] [id number] signed by Jose Ramon Alvarado MD at 03/20/2017 12:49 PM PDTMoulton, Anurag Soni MD - 03/20/2017 12:18 PM PDTFormatting of this note might be differen t from the original. Cardiovascular Intensive Care Unit Attending Progress Note CVICU D2 Assigned #[id number] ICU Admission Reason Most Recent Value ICU [...] Pager Mellisa Haji MD Admitting Provider Cardiology 10707 Code Status Code Status Full Code Quality section A-Line necessity reviewed: Slaz-el-avsb blood pressure monitoring CVC necessity reviewed: Medication [...] Date of Service: 03/20/2017 Author:Anurag Ashby MD [address] [address] [place] [address]Cdwybxzjjrkfmt signed by Anurag Ashby MD at 03/20/2017 12:18 PM P Raul Conte MD - 03/19/2017 11:01 PM PDTFormatting of this note might be different fro m the original. Cardiovascular Intensive Care Unit Attending Progress Note CVICU D2 Assigned #[id number] ICU Admission Reason Most Recent Value ICU [...] Pager Mellisa Haji MD Admitting Provider Cardiology 31486 Code Status Code Status Full Code Quality section A-Line necessity reviewed: Kguf-er-ujik blood pressure monitoring CVC necessity reviewed: Hemodynamic [...] Date of Service: 03/19/2017 Author:Raul Wei MD [place] [address] Jose Ramon Rodriguez MD - 03/19/2017 4:49 PM PDT Cardiovascular Intensive Care Unit Team Progress Note CVICU D2 Assigned #[id number] ICU Admission Reason Most Recent Value ICU [...] & Plan Patient went into VFib during laboratory monitor procedure at [facility]. Was shocked 17 times Targeted temperature management [...] Patient was difficult intubation at outside laboratory monitor. -vanc zosyn stopped 03/17 -fever 38.3 03/17 [...] Pager Mellisa Haji MD Admitting Provider Cardiology 95812 Quality section A-Line necessity reviewed: Dfml-wl-qkve blood pressure monitoring CVC necessity reviewed: Hemodynamic monitoring Reardon necessity reviewed: Hourly/Accurate measurement of urinary output for clinical manage ment of critically ill patients FAST HUG Feeding: TFs Analgesia: multimodal Sedation: propofol Thromboprophylaxis: Heparin infusion Head of Bed: Head of Bed >30 degrees Ulcer Prophylaxis: protonix Glycemic Control: insulin infusion Created by Jose Ramon Alvarado MD Author:Jose Ramon Alvarado MD [address] [address]Duxagfcytobekd signed by Jose Ramon Alvarado MD at 03/19/2017 4:54 PM Lee Fernandez MD - 03/19/2017 2:22 PM PDTFormatting of this note might be different fr om the original. . Extracorporeal Life Support Service Daily Progress Note Pager #[phone] Type: Veno-Arterial (CPT 20217 or 99097) Date of insertion: 03/15/2017 Diagnosis:Cardiogenic shock Dressing [...] Unit Attending Progress Note CVICU D2 Assigned #[id number] ICU Admission Reason Most Recent Value ICU [...] Pager Mellisa Haji MD Admitting Provider Cardiology 99555 Code Status Code Status Full Code Quality section A-Line necessity reviewed: Mgxe-kr-drbe blood pressure monitoring CVC necessity reviewed: Medication [...] Date of Service: 03/19/2017 Author:Anurag Ashby MD [address] [address]Hlvrvaafvoicdk signed by Anurag Ashby MD at 03/19/2017 2:17 PM P Jose Ramon Coburn MD - 03/18/2017 12:56 PM PDTFormatting of this note might be differen t from the original. Cardiovascular Intensive Care Unit Team Progress Note CVICU D2 Assigned #[id number] ICU Admission Reason Most Recent Value ICU [...] (obdulio) pm STEMI (ST elevation myocardial infarction) ([facility]) Yes Overview Xience Alpine 3.0 [...] & Plan Patient went into VFib during laboratory monitor procedure at [facility]. Was shocked 17 times Targeted temperature management [...] Patient was difficult intubation at outside laboratory monitor. -vanc zosyn stopped today Abnormal CK Unknown [...] Pager Mellisa Haji MD Admitting Provider Cardiology 33242 Quality section A-Line necessity reviewed: Vhia-cv-ccst blood pressure monitoring CVC necessity reviewed: Hemodynamic monitoring Reardon necessity reviewed: Hourly/Accurate measurement of urinary output for clinical manage ment of critically ill patients FAST HUG Feeding: trickle feeds Analgesia: multimodal Sedation: propofol Thromboprophylaxis: Heparin infusion Head of Bed: Head of Bed >30 degrees Ulcer Prophylaxis: nexium Glycemic Control: insulin infusion Created by Jose Ramon Alvarado MD Author:Jose Ramon Alvarado MD [address] [address]Bcsiyfpgoqqzhl signed by Jose Ramon Alvarado MD at 03/18/2017 1:27 PM PDTMoulton, Anurag Soni MD - 03/18/2017 11:56 AM PDTFormatting of this note might be differen t from the original. Cardiovascular Intensive Care Unit Attending Progress Note CVICU D2 Assigned #[id number] ICU Admission Reason Most Recent Value ICU [...] Pager Mellisa Haji MD Admitting Provider Cardiology 08955 Code Status Code Status Full Code Quality section A-Line necessity reviewed: Mknn-ky-hlhe blood pressure monitoring CVC necessity reviewed: Medication [...] Date of Service: 03/18/2017 Author:Anurag Ashby MD [address] [id number] signed by Anurag Ashby MD at 03/18/2017 11:59 AM Lee Prince MD - 03/18/2017 11:37 AM PDTFormatting of this note might be different from nissa suh original. . Extracorporeal Life Support Service Daily Progress Note Pager #[phone] Type: Veno-Arterial (CPT 72142 or 52847) Diagnosis:Cardiogenic shock Dressing changed: no Dressing Changed [...] Life Support Service Daily Progress Note Pager #[phone] Type: Veno-Arterial (CPT 93853 or 03040) Date of insertion: 03/15/2017 Diagnosis:Cardiogenic shock Dressing [...] Unit Attending Progress Note CVICU D2 Assigned #[id number] ICU Admission Reason Most Recent Value ICU [...] Pager Mellisa Haji MD Admitting Provider Cardiology 08214 Quality section A-Line necessity reviewed: Flps-eo-bnuo blood pressure monitoring CVC necessity reviewed: Rapid [...] Date of Service: 03/17/2017 Author:Raul Wei MD [address] [address] [place] [address]Edzfhqqaskkysd signed by Raul Wei MD at 03/17/2017 9:20 PM PD Anurag Kaba MD - 03/17/2017 1:58 PM PDTFormatting of this note might be different fro m the original. Cardiovascular Intensive Care Unit Attending Progress Note CVICU D2 Assigned #[id number] ICU Admission Reason Most Recent Value ICU [...] Pager Mellisa Haji MD Admitting Provider Cardiology 24591 Quality section A-Line necessity reviewed: Jnxz-uy-vmzz blood pressure monitoring CVC necessity reviewed: Medication [...] Date of Service: 03/17/2017 Author:Anurag Ashby MD [address] [address]Qbpdrvzwnajveq signed by Anurag Ashby MD at 03/17/2017 2:00 PM P Mauri Calderon - 03/17/2017 1:01 PM PDTTransthoracic echocardiogram completed. Final r eport to follow. Teddy Ibrahim DO, MS - 03/17/2017 10:00 AM PDT Cardiovascular Intensive Care Unit Team Progress Note CVICU D2 Assigned #[id number] ICU Admission Reason Most Recent Value ICU [...] & Plan Patient went into VFib during laboratory monitor procedure at [facility]. Was shocked 17 times Targeted temperature management [...] Patient was difficult intubation at outside laboratory monitor. -vanc zosyn stopped today Abnormal CK Unknown [...] Pager Mellisa Haji MD Admitting Provider Cardiology 74371 This patient does not have an Advanced Care Note for this Admission. Please use the Goal of care section of your ICU navigator to document the advanced care discussion. Quality section A-Line necessity reviewed: Pctx-mw-gfds blood pressure monitoring CVC necessity reviewed: Hemodynamic monitoring Reardon necessity reviewed: Hourly/Accurate measurement of urinary output for clinical manage ment of critically ill patients FAST HUG Feeding: Tube Feeds Analgesia: apap, oxy, hm Sedation: propofol Thromboprophylaxis: Heparin infusion Head of Bed: Head of Bed Flat Ulcer Prophylaxis: Pantoprazole Glycemic Control: insulin infusion Created by Teddy Kee Do, MS [facility] DEPARTMENT: [facility] ICU CARDIAC Place of Service:- Inpatient CSN: [id number] Suggested Modifier: GC - Resident Involved Suggested CPT: TO AUTOMOTIVE PARTS COUNTER ASSISTANT Author:Teddy Kee Do, MS [address] [address]Dmjtkjrgwipira signed by Teddy Kee DO, MS at 03/17/2017 6:35 PM Raul Hanson MD - 03/16/2017 7:38 PM PDT Cardiovascular Intensive Care Unit Attending Progress Note CVICU D2 Assigned #[id number] ICU Admission Reason Most Recent Value ICU [...] Pager Mellisa Haji MD Admitting Provider Cardiology 24143 Quality section A-Line necessity reviewed: Oyvt-jd-netn blood pressure monitoring CVC necessity reviewed: Rapid [...] Date of Service: 03/16/2017 Author:Raul Wei MD [address] [address]Xzpebytnzzyhro signed by Raul Wei MD at 03/17/2017 11:03 AM PD Jose Ramon Rodriguez MD - 03/16/2017 5:15 PM PDT Cardiovascular Intensive Care Unit Team Progress Note CVICU D2 Assigned #[id number] ICU Admission Reason Most Recent Value ICU [...] & Plan Patient went into VFib during laboratory monitor procedure at [facility]. Was shocked 17 times Now on targeted [...] Patient was difficult intubation at outside laboratory monitor. -bridget retana for now Physical Exam vitals [...] Pager Mellisa Haji MD Admitting Provider Cardiology 61081 Quality section A-Line necessity reviewed: Nrjl-au-iyhw blood pressure monitoring CVC necessity reviewed: Hemodynamic [...] Ramon Alvarado MD Author:Jose Ramon Alvarado MD [address] [address] [place] [address]Msmvewrbmdkvwa signed by Jose Ramon Alvarado MD at [...] Unit Attending Progress Note CVICU D2 Assigned #[id number] ICU Admission Reason Most Recent Value ICU [...] ICU Day #2 after being transferred from [facility] in [place] in acute cardiogenic archie ck following an anterior STEMI. Upon arrival to [facility], decision was made to go emergently on [...] Pager Mellisa Haji MD Admitting Provider Cardiology 45720 Quality section A-Line necessity reviewed: Hifg-ik-hqrh blood pressure monitoring CVC necessity reviewed: Hemodynamic [...] Date of Service: 03/16/2017 Author:Anurag Ashby MD [address] [address]Xqimgbfcgsnlpo signed by Anurag Ashby MD at 03/16/2017 1:23 PM Lee Prince MD - 03/16/2017 9:41 AM PDTFormatting of this note might be different from t vikahs original. . Extracorporeal Life Support Service Daily Progress Note Pager #[phone] Type: Veno-Arterial (CPT 17875 [place] 20633) Diagnosis:Cardiogenic shock Dressing changed: no Dressing Changed [...] Clinical Update Note Team: D2 Team Pager: [phone] Attending: Abdulaziz Merrill Name: Ron Mckeon ID: [...] Date of Service: 03/16/2017 Mirna Berumen PA-C [facility] DEPARTMENT: ANE ICU CARDIAC Place of Service:- Inpatient CSN: [id number] Suggested Modifier: None Suggested CPT: TO AUTOMOTIVE PARTS COUNTER ASSISTANT Mirna Berumen PA-C Everardo Valladares MD - 03/15/2017 9:04 PM PDT Cardiovascular Intensive Care Unit Attending Progress Note CVICU D2 Assigned #[id number] ICU Admission Reason Most Recent Value ICU Admission reason Cardiogenic Shock filed at 03/15/2017 1531 Hospital admission dx: left anterior descending artery occlusion, needs cabg Days in ICU Days in Hospital Medical Decision Making ICU Day #1 after being transferred from [facility] in [place] in acute cardiogenic archie ck following an anterior STEMI. Upon arrival to [facility], decision was made to go emergently on [...] Pager Mellisa Haji MD Admitting Provider Cardiology 65275 Quality section A-Line necessity reviewed: Rkjb-om-pnsi blood pressure monitoring CVC necessity reviewed: Hemodynamic [...] and the recent imaging available. Seen with PA/ADULT SCHOOL COUNSELOR Winston Cole. Please see their note for details. I reviewed the documented findings, all data and the recent imaging available. Date of Service: 03/15/2017 Author:Everardo Cintron MD [address] [address]Pjijsszmbzgitj signed by Everardo Cintron MD at 03/15/2017 9:[address] - 03/15/2017 2:11 PM PDTTransthoracic echocardiogram completed. Final r eport to follow. oniPatrick genao MD,MPH - 03/15/2017 2:00 PM PDT . Extracorporeal Life Support Service Consult Service Note Pager #[phone] Date: 03/15/17 Author: Patrick Ruiz MD,MPH Consulting Attending: Mellisa Haji MD Reason for Consult: VA ECMO Consideration HPI: 61 year old male who presents this afternoon to [facility] in acute cardiogenic shock second maciej to STEMI / thrombosed L main coronary artery. He was transferred from [place]. His symptoms started this morning around 3am and was seen in [place], [place]. He was diagnosed w ith an anterior STEMI and transferred to the laboratory monitor in [place], [place]. He was found to h ave [...] and dopamine). On arrival to [facility], he was in profound cardiogenic shock and hypoxic. His MAP was in the 40s. He was tach ycardic into the 150s. IABP was increased to 1:2. Past Medical History: Past Medical History: Diagnosis Date Cardiogenic shock ([facility]) 03/15/2017 Coronary artery disease 03/15/2017 Hypercholesterolemia Hypertension STEMI (ST elevation myocardial infarction) ([facility]) 03/15/2017 Tobacco use Past Surgical [...] After conferring with Dr. Powell (CT Surgery), Jete Ugalde (CVICU), and Neena Ramírez (Heart Failure), we decided that his best opportunity for MCS was VA-ECMO with the plan for cardiac recovery from cardiogenic shock. Patrick Ruiz MD, MPH oil paint shader Trauma, Critical Care & Acute Care Surgery [facility] onies, Patrick Sexton MD,MPH - 03/15/2017 1:48 PM PDT . . Extracorporeal Life Support Service Initiation Note Pager #[phone] Date of service: 03/15/2017 Author: Patrick Ruiz Md,Mph ECMO Type: Veno-Arterial (CPT 22623 [place] 26631) Oxygenation index FiO2: 100 MAP: 22 Diagnosis:Cardiogenic [...] old male who presents this afternoon to [facility] in acute cardiogenic shock secondary to STEMI [...] | + +--------+ + + + | RJ-OM-AIG-HB,POC RT | Routin | 03/19/2017 | ST [...] | + +--------+ + + + | VA ECMO REV | Routin | 03/19/2017 | [...] +---+--------+ + +--------+ + + + | AZ-DX-DZH-HB,POC RT | Routin | 03/19/2017 | ST [...] | + +--------+ + + + | VN-KG-TNH-HB,POC RT | Routin | 03/19/2017 | ST elevation | Results for this | | | e | 10:06 AM | myocardial | procedure are in the | | | | PDT | infarction involving | results section. | | | | | left main coronary | | | | | | artery (HCC) | | + +--------+ + + + | NL-BD-VII-HB,POC RT | Routin | 03/19/2017 | ST [...] | + +--------+ + + + | LR-FU-THD-HB,POC RT | Routin | 03/17/2017 | ST [...] | + +--------+ + + + | WJ-FH-ALX-HB,POC RT | Routin | 03/16/2017 | ST [...] | + +--------+ + + + | CR-OC-XXF-HB,POC RT | Routin | 03/16/2017 | ST [...] | + +--------+ + + + | QN-IG-PWM-HB,POC RT | Routin | 03/15/2017 | ST [...] | + +--------+ + + + | KF-IZ-PCK-HB,POC RT | Routin | 03/15/2017 | ST [...] | + +--------+ + + + | NU-WW-UUI-HB,POC RT | Routin | 03/15/2017 | ST [...] Height: 175 cm Weight: 89 kgBSA: 2.05 [id number] PHYSICIAN:Katarina Ngo | | .FELLOW:Gerson Mejias M.D. [...] right coronary angiography.COMPLICATIONS:None.TECHNIQUE:Right femoral artery | | 6-Egyptian 10 cm [place] sheath, 6-Egyptian XB 3.5 guide catheter, 5-Egyptian JR4 | | catheter.DESCRIPTION OF PROCEDURE:Informed consent [...] modified Seldinger technique and a | | 5-Egyptian micropuncture system, a 6-Egyptian 10 cm [place] sheath was placed in the right | | femoral artery. A 6-Egyptian XB 3.5 guide catheter was inserted into the ascending aorta | | over a guidewire. The guidewire was removed. The catheter was aspirated and flushed. | | The left coronary system was selectively engaged and imaged in multiple projections. A | | 5-Egyptian Kymberly right 4 catheter was advanced to [...] DOSE AREA | | PRODUCT: 3749 cGy [id number]:Aortic pressure 87/15, mean aortic pressure 63, heart [...] 03/30/2017 04:50:01DT: | | 03/30/2017 08:34:34Job #: [id number] | |extending from it into the LAD. [...] |YDT/MODL | | | | | | /[id number] | + + CAPILLARY BLOOD GLUCOSE (NO [...] [facility] | [address] | [place], [place] | | | JULIANN SILVA OF CARE | [address] | [address] | | | TESTS | | | [...] | + + + + + | [facility] | [address] | [place] [address] | | | SERVICES, CORE | PARK [...] | + + + + + | [facility] | [address] | [place] [address] | | | SERVICES, CORE | PARK [...] [facility] | [address] | [place] [address] | | | SERVICES, CORE | PARK [...] | | | LABORATORY | | | NIGERIAN | | | SERVICES, | | | [...] | + + + + + | [facility] | [address] | [place] [address] | | | ARASH, ИРИНА | PARK [...] ranges for full anticoagulation: INR for | [facility] | | Venous Thromboembolism (2.0 - 3.0) INR INR | LABORATORY | | for most patients with mech. valves (2.5 - 3.5) INR | ИРИНА ANTOINE | + + + + + + + + | Performing | Address | City/State/Zipcode | Phone Number | | Organization | | | | + + + + + | [facility] | [address] | [place] [address] | | | ИРИНА ANTOINE | TABITHA [...] | + + + + + | [facility] | [address] | [place] [address] | | | ARASH, ИИРНА | TABITHA ALICEA | | | + [...] [facility] | [address] | [place], [place] | | | JULIANN SILVA OF ALEXIS | [address] | [address] | | | TESTS | | | [...] [facility] | [address] | [place], [place] | | | RICARDO POINT OF CARE | [address] | [address] | | | TESTS | | | [...] + + + | [facility] | [address] | [place], [place] | | | RICARDO POINT OF [facility] SAULT | [address] | [address] | | | TESTS | | | [...] | + + + + + | [facility] | [address] | [place] [address] | | | SERVICES, CORE | TABITHA [...] | | | LABORATORY | | | NIGERIAN | | | SERVICES, | | | [...] [facility] | [address] | [place] [address] | | | SERVICES, CORE | PARK [...] [facility] | [address] | [place] [address] | | | SERVICES, CORE | PARK [...] | + + + + + | [facility] | [address] | [place] [address] | | | SERVICES, CORE | TABITHA [...] [facility] | [address] | [place], [place] | | | R[facility]ARDO POINT OF CARE | [address] | [address] | | | TESTS | | | [...] [facility] | [address] | [place], [place] | | | RICARDO POINT OF CARE | [address] | [address] | | | TESTS | | | [...] (H) | 70 - 99 mg/dL | [facility] - | | | GLUCOSE, | | [...] [facility] | [address] | [place], [place] | | | JULIANN SILVA OF [facility]LEX[facility] | [address] | [address] | | | TESTS | | | [...] [facility] | [address] | [place], [place] | | | JULIANN SILVA OF CARE | [address] | [address] | | | TESTS | | | [...] [facility] | [address] | [place] [address] | | | SERVICES, CORE | PARK [...] | | | LABORATORY | | | NIGERIAN | | | SERVICES, | | | [...] | + + + + + | [facility] | [address] | [place] [address] | | | SERVICES, ИРИНА | TABITHA [...] | + + + + + | [facility] | [address] | [place] [address] | | | ARASH, ИРИНА | TABITHA [...] [facility] | [address] | [place] [address] | | | SERVICES, CORE | TABITHA [...] | + + + + + | [facility] | [address] | [place] [address] | | | ARASH, ИРИНА | TABITHA [...] [facility] | [address] | [place], [place] | | | R[facility]ARDO POINT OF CARE | [address] | [address] | | | TESTS | | | [...] | | | LABORATORY | | | NIGERIAN | | | SERVICES, | | | [...] | + + + + + | [facility] | [address] | [place] [address] | | | SERVICES, CORE | TABITHA [...] DEPT OF | [address] | [place], [place] | | | CARDIOLOGY | [address] | [address] | | + + + + + CAPILLARY BLOOD GLUCOSE (NO CHG), POC (03/30/2017 5:22 PM PDT) + +---------+ + + + | Component | Value | Ref Range | Performed | Pathologist | | | | | At | Signature | + +---------+ + + + | BLOOD | 116 (H) | 70 - 99 mg/dL | [facility] - | | | GLUCOSE, | | [...] [facility] | [address] | [place], [place] | | | [facility]O [facility] SAULT | [address] | [address] | | | TESTS | | | [...] | | | LABORATORY | | | NIGERIAN | | | SERVICES, | | | [...] | + + + + + | [facility] | [address] | [place] [address] | | | SERVICES, CORE | PARK [...] | + + + + + | [facility] | [address] | [place] [address] | | | SERVICES, CORE | PARK [...] rmed At | + +------ + | [facility] | [facility] DEPT [facility] | | [facility] Adult Echocardiography | CARDI OLOGY | | Laboratory [address] [place] [address] | | | [place] [address] Pt Name: | | | RON Chaudhary MIKE Study Date/Time 03/30/2017 / 10:44:00 | | | AMMRN: [id number] Most recent | | | prior: 03/19/17 #: [id number] No. previous | | | echos: 3DOB: 1955 61 years Heart | | | Rate: 70 bpmHeight: 68.0 in | | | Blood Pressure: 100/55 mm/HgWeight: 197.0 | | | lb Gender: | | | MBSA: 2.03 m2 Order | | | ID: [id number] [employer] Press Operator: Shahab Sutton | | | RDCSSonographer 2: Karly Gayle Referring Provider: Ariana | | | [facility] Location: 11KModalities Performed: 2D, Color flow, | [...] patient's significant recent [place], we activated the laboratory monitor. Patient | | | history has been [...] Report electronically signed by: | | | [id number] Jordon Neville MD (03/30/2017, 2:04:56 PM) Final | | | | | |Wall Scoring: | | | | | | | | |Report electronically signed by: [id number] Jordon Neville MD (03/30/2017, 2:04:56 PM) | | | | | | | | | | | | Final | | + +------ + + + | Procedure Note | + + | Interface, Cardiology Results - 03/30/2017 2:04 PM [facility] | | [facility] [address] [place] [address] | | [place], [place] [address] Pt Name: RON Chaudhary | | MIKE Study Date/Time 03/30/2017 / 10:44:00 AMMRN: [id number] Most | | recent prior: 03/19/17 #: [id number] No. previous echos: 3DOB: | | 1955 61 years Heart Rate: 70 bpmHeight: 68.0 in Blood | | Pressure: 100/55 mm/HgWeight: 197.0 lb Gender: MBSA: | | 2.03 m2 Order ID: [id number] [employer] Operator: Shahab Sutton | | RDCSSonographer 2: Karly Major Provider: Ariana BoseFormerly [facility] Location: | | 11KModalities Performed: [...] patient's significant recent [place], we activated the laboratory monitor. Patient history has been | | obtained [...] Scoring: Report | | electronically signed by: [id number] Jordon Neville MD (03/30/2017, 2:04:56 PM) Final [...] | | | |Report electronically signed by: [id number] Jordon Neville MD (03/30/2017, 2:04:56 PM) | | | | | | | | Final | + + + + + + + | Performing | Address | City/State/Zipcode | Phone Number | | Organization | | | | + + + + + | [facility] | [address] | [place], [place] | | | CARDIOLOGY | [address] | [address] | | + + + + + CAPILLARY BLOOD GLUCOSE (NO CHG), POC (03/30/2017 9:08 AM PDT) + +---------+ + + + | Component | Value | Ref Range | Performed | Pathologist | | | | | At | Signature | + +---------+ + + + | BLOOD | 110 (H) | 70 - 99 mg/dL | [facility] - | | | GLUCOSE, | | [...] [facility] | [address] | [place], [place] | | | JULIANN SILVA OF CARE | [address] | [address] | | | TESTS | | | [...] | + + + + + | [facility] | [address] | [place] [address] | | | SERVICES, CORE | TABITHA [...] [facility] | [address] | [place], [place] | | | [facility] | [address] | [address] | | | TESTS | | | [...] + | [facility] | [address] | [place], [place] | | | CARDIOLOGY | [address] | [address] | | + + + + + [...] | | | LABORATORY | | | NIGERIAN | | | SERVICES, | | | [...] [facility] | [address] | [place] [address] | | | SERVICES, CORE | PARK [...] | + + + + + | [facility] | [address] | [place] [address] | | | SERVICES, CORE | PARK [...] | + + + + + | [facility] | [address] | [place] [address] | | | SERVICES, CORE | TABITHA [...] OF | [address] | [place], [place] | | | CARDIOLOGY | [address] | [address] | | + + + + + [...] + + | [facility] | [address] | [place], [place] | | | CARDIOLOGY | [address] | [address] | | + + + + + [...] | + + + + + | [facility] | [address] | [place] [address] | | | SERVICES, CORE | TABITHA [...] | + + + + + | [facility] | [address] | [place] [address] | | | SERVICES, ИРИНА | TABITHA [...] [facility] | [address] | [place] [address] | | | SERVICES, CORE | TABITHA [...] | + + + + + | [facility] | [address] | [place] [address] | | | SERVICES, ИРИНА | TABITHA [...] [facility] | [address] | [place], [place] | | | JULIANN SILVA [facility] | [address] | [address] | | | TESTS | | | [...] [facility] | [address] | [place] [address] | | | SERVICES, CORE | PARK [...] DEPT OF | [address] | [place], [place] | | | CARDIOLOGY | [facility] | [address] | | + + + + + CAPILLARY BLOOD GLUCOSE (NO CHG), POC (03/29/2017 8:16 PM PDT) + +---------+ + + + | Component | Value | Ref Range | Performed | Pathologist | | | | | At | Signature | + +---------+ + + + | BLOOD | 105 (H) | 70 - 99 mg/dL | [facility] - | | | GLUCOSE, | | [...] [facility] | [address] | [place], [place] | | | RICARDO POINT OF CARE | [address] | [address] | | | TESTS | | | [...] [facility] | [address] | [place], [place] | | | JULIANN SILVA OF ALEX[facility] | [facility] | [address] | | | TESTS | | | [...] | + + + + + | [facility] | [address] | [place] [address] | | | ИРИНА ANTOINE | TABITHA [...] [facility] | [address] | [place], [place] | | | JULIANN SILVA OF [facility] | [address] | [address] | | | TESTS | | | [...] [facility] | [address] | [place] [address] | | | SERVICES, CORE | PARK [...] | | | LABORATORY | | | NIGERIAN | | | SERVICES, | | | [...] | + + + + + | [facility] | [address] | [place] [address] | | | SERVICES, CORE | TABITHA [...] (H) | 0.90 - 1.20 INR | [facility] | | | | | | LABORATORY [...] [facility] | [address] | [place] [address] | | | ИРИНА ANTOINE | TABITHA [...] [facility] | [address] | [place] [address] | | | SERVICES, CORE | PARK [...] | + + + + + | [facility] | [address] | [place] [address] | | | SERVICES, CORE | TABITHA [...] | + + + + + | [facility] | [address] | [place] [address] | | | SERVICES, CORE | TABITHA [...] [facility] | [address] | [place], [place] | | | JULIANN SILVA OF CARE | [address] | [address] | | | TESTS | | | [...] (H) | 70 - 99 mg/dL | [facility] - | | | GLUCOSE, | | [...] - [facility] | [address] [facility] | [place], [place] | | | [facility] | [address] | [address] | | | TESTS | | | [...] | | | LABORATORY | | | NIGERIAN | | | SERVICES, | | | [...] [facility] | [address] | [place] [address] | | | ARASH, ИРИНА | PARK [...] [facility] | [address] | [place] [address] | | | SERVICES, CORE | PARK [...] | | | LABORATORY | | | NIGERIAN | | | SERVICES, | | | [...] | + + + + + | [facility] | [address] | [place] [address] | | | ARASH, ИРИНА | TABITHA [...] 93 | 70 - 99 mg/dL | [facility] - | | | GLUCOSE, | | [...] [facility] | [address] | [place], [place] | | | JULIANN SILVA OF CARE | [facility] | [address] | | | TESTS | | | [...] MARIA | [address] | [place], [place] | | | JULIANN SILVA OF [facility] | [address] | [address] | | | TESTS | | | [...] [facility] | [address] | [place] [address] | | | ИРИНА ANTOINE | TABITHA [...] | | | LABORATORY | | | NIGERIAN | | | SERVICES, | | | [...] | + + + + + | [facility] | [address] | [place] [address] | | | SERVICES, CORE | TABITHA [...] | + + + + + | [facility] | [address] | [place] [address] | | | SERVICES, ИРИНА | TABITHA [...] ranges for full anticoagulation: INR for | [facility] | | Venous Thromboembolism (2.0 - 3.0) INR INR | LABORATORY | | for most patients with mech. valves (2.5 - 3.5) INR | ИРИНА ANTOINE | + + + + + + + + | Performing | Address | City/State/Zipcode | Phone Number | | Organization | | | | + + + + + | [facility] | [address] | [place] [address] | | | SERVICES, ИРИНА | TABITHA [...] [facility] | [address] | [place] [address] | | | ARASH, ИРИНА | PARK [...] [facility] | [address] | [place], [place] | | | JULIANN SILVA OF [facility] | [address] | [address] | | | TESTS | | | [...] [facility] | [address] | [place], [place] | | | [facility] | [address] | [address] | | | TESTS | | | [...] [facility]QU[facility] | [address] | [place], [place] | | | [facility] | [address] | [address] | | | TESTS | | | [...] (H) | 70 - 99 mg/dL | [facility] - | | | GLUCOSE, | | [...] MARQU[facility] | [address] | [place], [place] | | | JULIANN SILVA OF [facility] | [address] | [address] | | | TESTS | | | [...] + + | [facility] | [address] | [place] [address] | | | SERVICES, CORE | TABITHA [...] | + + + + + | [facility] | [address] | [place] [address] | | | SERVICES, CORE | TABITHA [...] | | | LABORATORY | | | NIGERIAN | | | SERVICES, | | | [...] + + | [facility] | [address] | [place] [address] | | | SERVICES, CORE | PARK [...] | + + + + + | [facility] | [address] | [place] [address] | | | SERVICES, CORE | TABITHA [...] ARASH, | | | | | | ИРНИА | | + +---------+ + + + + + | Specimen | + + | Blood | + + + + + + + | Performing | Address | City/State/Zipcode | Phone Number | | Organization | | | | + + + + + | [facility] | [address] | [place] [address] | | | ИРИНА ANTOINE | TABITHA [...] R[facility] | [address] | [place], [place] | | | [facility] | [address] | [address] | | | TESTS | | | [...] [facility] | [address] | [place], [place] | | | [facility] | [address] | [address] | | | TESTS | | | [...] | | | LABORATORY | | | NIGERIAN | | | SERVICES, | | | [...] | + + + + + | [facility] | [address] | [place] [address] | | | SERVICES, ИРИНА | TABITHA [...] MARIA | [address] | [place], [place] | | | JULIANN S[facility] OF [facility] | [address] | [address] | | | TESTS | | | [...] EULOGIO CALABRESE | [address] | [place] [address] | | | ARASH, ИРИНА | TABITHA [...] | + + + + + | [facility] | [address] | [place] [address] | | | ИРИНА ANTOINE | TABITHA [...] [facility] | [address] | [place] [address] | | | SERVICES, CORE | PARK [...] | | | LABORATORY | | | NIGERIAN | | | SERVICES, | | | [...] | + + + + + | [facility] | [address] | [place] [address] | | | SERVICES, CORE | PARK [...] | + + + + + | [facility] | [address] | [place] [address] | | | ИРИНА ANTOINE | TABITHA [...] | + + + + + | [facility] | [address] | [place] [address] | | | SERVICES, CORE | PARK [...] | [facility] | | considered for monitoring half-way glycemic control in patients with: | LABORATORY [...] | + + + + + | [facility] | [address] | [place] [address] | | | SERVICES, SPECIAL | TABITHA [...] [facility] | [address] | [place] [address] | | | SERVICES, CORE | PARK [...] - [facility] | [address] | [place], [place] | | | [facility] | [address] | [address] | | | TESTS | | | [...] (H) | 70 - 99 mg/dL | [facility] - | | | GLUCOSE, | | [...] + + + | [facility] | [address] | [place], [place] | | | JULIANN SILVA OF [facility] | [address] | [address] | | | TESTS | | | [...] [facility] | [address] | [place] [address] | | | ARASH, ИРИНА | TABITHA [...] | [facility] | | | GRAVITY | [facility] performed by | | LABORATORY | | [...] [facility] | [address] | [place] [address] | | | ARASH, CORE | TABITHA [...] | + + + + + | [facility] | [id number] | [place] [address] | | | [place] | | | | + + + [...] R[facility] | [address] | [place], [place] | | | [facility] | [address] | [address] | | | TESTS | | | [...] MARIA | [address] | [place], [place] | | | JULIANN SILVA OF [facility] | [facility] | [address] | | | TESTS | | | [...] | + + + + + | [facility] | [address] | [place] [address] | | | ARASH, ИРИНА | TABITHA [...] [facility] | [address] | [place] [address] | | | SERVICES, CORE | TABITHA [...] | + + + + + | [facility] | [address] | [place] [address] | | | SERVICES, CORE | TABITHA [...] [facility] | [address] | [place] [address] | | | SERVICES, CORE | PARK [...] | | | LABORATORY | | | NIGERIAN | | | SERVICES, | | | [...] [facility] | [address] | [place] [address] | | | ARASH, ИРИНА | TABITHA [...] | + + + + + | [facility] | [address] | [place] [address] | | | ИРИНА ANTOINE | TABITHA [...] MARIA | [address] | [place], [place] | | | [facility] | [facility] | [address] | | | TESTS | | | [...] (H) | 70 - 99 mg/dL | [facility] - | | | GLUCOSE, | | [...] [facility] | [address] | [place], [place] | | | [facility] | [address] | [address] | | | TESTS | | | [...] [facility] | [address] | [place], [place] | | | JULIANN S[facility] | [address] | [address] | | | TESTS | | | [...] MARIA | [address] | [place], [place] | | | JULIANN SILVA OF [facility] | [address] | [address] | | | TESTS | | | [...] + + | [facility] | [address] | [place] [address] | | | SERVICES, CORE | PARK [...] [facility] | [address] | [place] [address] | | | SERVICES, CORE | PARK [...] | MIGUELMENDY Enriquez ANA MARIA | [address] [facility] [facility] [address] | [place], [place] | | | [facility] | [address] | [address] | | | TESTS | | | [...] | | | attempt. Midline lot number [id number]; there was + blood | | | [...] MAR[facility] | [address] | [place], [place] | | | JULIANN SIL[facility] CARE | [address] | [address] | | | TESTS | | | [...] MARIA | [address] | [place], [place] | | | [facility] | [address] | [address] | | | TESTS | | | [...] | + + + + + | [facility] | [address] | [place] [address] | | | SERVICES, CORE | TABITHA [...] (H) | 70 - 99 mg/dL | [facility] - | | | GLUCOSE, | | [...] R[facility] | [address] | [place], [place] | | | JULIANN S[facility]VA [facility] | [address] | [address] | | | TESTS | | | [...] MARIA | [address] | [place], [place] | | | JULIANN SILVA OF [facility] | [facility] | [address] | | | TESTS | | | [...] (H) | 70 - 99 mg/dL | [facility] - | | | GLUCOSE, | | [...] [facility] | [address] | [place], [place] | | | JULIANN SILVA OF CARE | [address] | [address] | | | TESTS | | | [...] R[facility] | [address] | [place], [place] | | | GURINDER SILVA | [facility] | [address] | | | TESTS | | | [...] [facility] | [address] | [place] [address] | | | ИРИНА ANTOINE | TABITHA [...] + + | [facility] | [address] | [place] [address] | | | ИРИНА ANTOINE | TABITHA [...] [facility] | [address] | [place] [address] | | | SERVICES, CORE | PARK [...] | | | LABORATORY | | | NIGERIAN | | | SERVICES, | | | [...] | + + + + + | [facility] | [address] | [place] [address] | | | ИРИНА ANTOINE | PARK [...] | + + + + + | [facility] | [address] | [place] [address] | | | ИРИНА ANTOINE | TABITHA [...] (H) | 70 - 99 mg/dL | [facility] - | | | GLUCOSE, | | [...] MARIA | [address] | [place], [place] | | | J[facility] | [address] | [address] | | | TESTS | | | [...] R[facility] | [address] | [place], [place] | | | JULIANN SILVA OF [facility] | [facility] | [address] | | | TESTS | | | [...] - [facility] | [address] | [place], [place] | | | JULIANN SIL[facility] CARE | [facility] | [address] | | | TESTS | | | [...] (H) | 70 - 99 mg/dL | [facility] - | | | GLUCOSE, | | [...] MARIA | [address] | [place], [place] | | | J[facility]ANN [facility] | [address] | [address] | | | TESTS | | | [...] [facility] | [address] | [place] [address] | | | ARASH, CORE | PARK [...] - [facility] | [address] | [place], [place] | | | [facility] | [address] | [address] | | | TESTS | | | [...] (H) | 70 - 99 mg/dL | [facility] - | | | GLUCOSE, | | [...] + + + | [facility] | [address] | [place], [place] | | | JULIANN SILVA [facility] | [address] | [address] | | | TESTS | | | [...] | + + + + + | [facility] | [address] | [place] [address] | | | SERVICES, CORE | TABITHA [...] MAR[facility] | [address] | [place], [place] | | | [facility] | [address] | [address] | | | TESTS | | | [...] MARQU[facility] | [address] | [place], [place] | | | [facility] | [address] | [address] | | | TESTS | | | [...] R[facility] | [address] | [place], [place] | | | JULIANN [facility] | [address] | [address] | | | TESTS | | | [...] MARQU[facility] | [address] | [place], [place] | | | [facility] | [address] | [address] | | | TESTS | | | [...] | [facility] | [address] [facility] [address] | [place], [place] | | | [facility] | [address] | [address] | | | TESTS | | | [...] + + | [facility] | [address] | [place] [address] | | | SERVICES, CORE | PARK [...] | + + + + + | [facility] | [address] | [place] [address] | | | SERVICES, CORE | TABITHA [...] | + + + + + | [facility] | [address] | [place] [address] | | | SERVICES, CORE | TABITHA [...] | | | LABORATORY | | | NIGERIAN | | | SERVICES, | | | [...] [facility] | [address] | [place] [address] | | | SERVICES, CORE | TABITHA [...] | + + + + + | [facility] | [address] | [place] [address] | | | SERVICES, ИРИНА | TABITHA [...] [facility] | [address] | [place], [place] | | | [facility] | [facility] | [address] | | | TESTS | | | [...] - [facility] | [address] | [place], [place] | | | [facility] | [address] | [address] | | | TESTS | | | [...] + + + | [facility] | [address] | [place], [place] | | | [facility] | [address] | [address] | | | TESTS | | | [...] [facility] | [address] | [place], [place] | | | JULIANN SILVA [facility]ARE | [address] | [address] | | | TESTS | | | [...] - [facility] | [address] | [place], [place] | | | [facility] | [address] | [address] | | | TESTS | | | [...] [facility] | [address] | [place], [place] | | | [facility] | [address] | [address] | | | TESTS | | | [...] | + + + + + | [facility] | [address] | [place] [address] | | | ИРИНА ANTOINE | TABITHA [...] (H) | 70 - 99 mg/dL | [facility] - | | | GLUCOSE, | | [...] [facility] | [address] | [place], [place] | | | [facility] | [address] | [address] | | | TESTS | | | [...] R[facility] | [address] | [place], [place] | | | J[facility]IANN S[facility] | [address] | [address] | | | TESTS | | | [...] MARIA | [address] | [place], [place] | | | JULIANN SILVA OF CARE | [facility] | [address] | | | TESTS | | | [...] (H) | 70 - 99 mg/dL | [facility] - | | | GLUCOSE, | | [...] R[facility] | [address] | [place], [place] | | | [facility] | [address] | [address] | | | TESTS | | | [...] MARIA | [address] | [place], [place] | | | JULIANN S[facility] | [address] | [address] | | | TESTS | | | [...] | + + + + + | [facility] | [address] | [place] [address] | | | SERVICES, CORE | TABITHA [...] (H) | 70 - 99 mg/dL | [facility] - | | | GLUCOSE, | | [...] RODG[facility] | [address] | [place], [place] | | | JULIANN SILVA OF CARE | [address] | [address] | | | TESTS | | | [...] MARQU[facility] | [address] | [place], [place] | | | [facility] | [address] | [address] | | | TESTS | | | [...] MARQU[facility] | [address] | [place], [place] | | | JULIANN SILVA OF [facility] | [facility] | [address] | | | TESTS | | | [...] R[facility] | [address] | [place], [place] | | | JULIANN [facility] | [address] | [address] | | | TESTS | | | [...] MARQU[facility] | [address] | [place], [place] | | | [facility] | [address] | [address] | | | TESTS | | | [...] MARIA | [address] | [place], [place] | | | [facility] | [facility] | [address] | | | TESTS | | | [...] | + + + + + | [facility] | [address] | [place] [address] | | | SERVICES, | [address] [...] [facility] | [address] | [place] [address] | | | SERVICES, | [address] [...] + + + + | PRODUCT | [id number] | | [facility] | | | UNIT [...] + + + + | EXPIRATION | [id number] | | [facility] | | | DATE [...] + + + + | BLOOD | [id number] | | [facility] | | | PRODUCT [...] [facility] | [address] | [place] [address] | | | SERVICES, | [address] [...] [facility] | [address] | [place] [address] | | | SERVICES, CORE | PARK [...] [facility] | [address] | [place] [address] | | | SERVICES, CORE | TABITHA [...] | + + + + + | [facility] | [address] | [place] [address] | | | SERVICES, CORE | PARK [...] | + + + + + | [facility] | [address] | [place] [address] | | | SERVICES, CORE | PARK [...] + + | [facility] | [address] | [place] [address] | | | SERVICES, CORE | PARK [...] | | | LABORATORY | | | NIGERIAN | | | SERVICES, | | | [...] LABORATORY | [address] | [place] [address] | | | ARASH, ИРИНА | TABITHA [...] (H) | 70 - 99 mg/dL | [facility] - | | | GLUCOSE, | | [...] [facility] | [address] | [place], [place] | | | JULIANN SILVA OF [facility] | [facility] | [address] | | | TESTS | | | [...] R[facility] | [address] | [place], [place] | | | [facility] | [address] | [address] | | | TESTS | | | [...] MARQU[facility] | [address] | [place], [place] | | | JULIANN SILVA OF CARE | [facility] | [address] | | | TESTS | | | [...] MARQU[facility] | [address] | [place], [place] | | | JULIANN SILVA OF [facility] | [facility] | [address] | | | TESTS | | | [...] [facility] | [address] | [place], [place] | | | [facility] | [address] | [address] | | | TESTS | | | [...] MARQUAM | [address] | [place], [place] | | | JULIANN SILVA OF CARE | [facility] | [address] | | | TESTS | | | [...] MAR[facility] | [address] | [place], [place] | | | J[facility] | [address] | [address] | | | TESTS | | | [...] R[facility] | [address] | [place], [place] | | | [facility] | [address] | [address] | | | TESTS | | | [...] MARRANDIAM | [address] | [place], [place] | | | [facility] | [address] | [address] | | | TESTS | | | [...] | | | LABORATORY | | | NIGERIAN | | | SERVICES, | | | [...] | + + + + + | [facility] | [address] | [place] [address] | | | SERVICES, ИРИНА | TABITHA [...] MARIA | [address] | [place], [place] | | | JULIANN S[facility]VA [facility] | [facility] | [address] | | | TESTS | | | [...] (H) | 70 - 99 mg/dL | [facility] - | | | GLUCOSE, | | [...] R[facility] | [address] | [place], [place] | | | [facility] | [address] | [address] | | | TESTS | | | [...] MARIA | [address] | [place], [place] | | | [facility] | [address] | [address] | | | TESTS | | | [...] on the 1 attempt. Midline lot number [id number]; there was + | | | blood [...] R[facility] | [address] | [place], [place] | | | JULIANN SILVA OF CARE | [facility] | [address] | | | TESTS | | | [...] MARIA | [address] | [place], [place] | | | [facility] | [address] | [address] | | | TESTS | | | [...] [facility] | [address] | [place] [address] | | | SERVICES, CORE | PARK [...] MARIA | [address] | [place], [place] | | | [facility] | [address] | [address] | | | TESTS | | | [...] | + + + + + | [facility] | [address] | [place] [address] | | | ИРИНА ANTOINE | TABITHA [...] [facility] | [address] | [place], [place] | | | H[facility], PO[facility] | [address] | [address] | | | TESTS | | | [...] (H) | 70 - 99 mg/dL | [facility] - | | | GLUCOSE, | | [...] MARQUAM | [address] | [place], [place] | | | JULIANN SILVA [facility] | [facility] | [address] | | | TESTS | | | [...] R[facility] | [address] | [place], [place] | | | [facility] | [address] | [address] | | | TESTS | | | [...] MARQU[facility] | [address] | [place], [place] | | | [facility], PO[facility] | [address] | [address] | | | TESTS | | | [...] [facility] | [address] | [place] [address] | | | SERVICES, CORE | PARK [...] [facility] | [address] | [place] [address] | | | ARASH, ИРИНА | PARK [...] | + + + + + | [facility] | [address] | [place] [address] | | | SERVICES, CORE | TABITHA [...] | | | LABORATORY | | | NIGERIAN | | | SERVICES, | | | [...] | + + + + + | [facility] | [address] | [place] [address] | | | SERVICES, CORE | TABITHA [...] (H) | 70 - 99 mg/dL | [facility] | | | GLUCOSE, | | [...] R[facility] | [address] | [place], [place] | | | [facility] | [address] | [address] | | | TESTS | | | [...] [facility]QU[facility] | [address] | [place], [place] | | | [facility] | [address] | [address] | | | TESTS | | | [...] R[facility] | [address] | [place], [place] | | | [facility] | [address] | [address] | | | TESTS | | | [...] R[facility] | [address] | [place], [place] | | | [facility] | [address] | [address] | | | TESTS | | | [...] ANA MARIA | [address] | [place], [place] | | | JULIANN SILVA OF [facility] | [address] | [address] | | | TESTS | | | [...] | + + + + + | [facility] | [address] | [place] [address] | | | SERVICES, CORE | TABITHA [...] [facility] | [address] | [place], [place] | | | JULIANN SILVA OF CARE | [address] | [address] | | | TESTS | | | [...] MARQUAM | [address] | [place], [place] | | | JULIANN S[facility]VA [facility]ARE | [address] | [address] | | | TESTS | | | [...] RODGERS | [address] | [place], [place] | | | JULIANN SILVA OF CARE | [address] | [address] | | | TESTS | | | [...] MARQUAM | [address] | [place], [place] | | | JULIANN S[facility]VA [facility] | [address] | [address] | | | TESTS | | | [...] MARQUAM | [address] | [place], [place] | | | JULIANN [facility] | [address] | [address] | | | TESTS | | | [...] RODGERS | [address] | [place], [place] | | | JULIANN [facility] | [address] | [address] | | | TESTS | | | [...] MARQUAM | [address] | [place], [place] | | | JULIANN SILVA [facility]ARE | [address] | [address] | | | TESTS | | | [...] | + + + + + | [facility] | [address] | [place] [address] | | | SERVICES, CORE | TABITHA [...] RODGERS | [address] | [place], [place] | | | [facility] | [address] | [address] | | | TESTS | | | [...] MARIA | [address] | [place], [place] | | | RICARDO [facility] | [address] | [address] | | | TESTS | | | [...] | + + + + + | [facility] | [address] | [place] [address] | | | SERVICES, CORE | TABITHA [...] (H) | 70 - 99 mg/dL | [facility] - | | | GLUCOSE, | | [...] RODGERS | [address] | [place], [place] | | | [facility] | [address] | [address] | | | TESTS | | | [...] the tip in the proximal gastric body. Clayton Олег | | | catheter in place. [...] Note | + + | Service Account, Chatterous Res In Interface - 03/20/2017 2:38 PM PDT EXAM: Supine | | frontal view of the abdomen. HISTORY: Study to evaluate feeding tube | | positionCOMPARISON: Chest Xray dated 03/19/2017.FINDINGS AND IMPRESSION:Feeding tube is | | seen in the stomach with the tip in the proximal gastric body.Clayton Олег catheter in | | place.Limited evaluation of the lungs as technique was tailored for feeding tube.I have | | personally reviewed the images and, if necessary, edited the report. I agree with the | | report as now presented. | | | |Feeding tube is seen in the stomach with the tip in the proximal gastric body. | |Clayton Олег catheter in place. | |Limited evaluation [...] RODGERS | [address] | [place], [place] | | | JULIANN SILVA OF CARE | [facility] | [address] | | | TESTS | | | [...] MARIA | [address] | [place], [place] | | | JULIANN SILVA OF [facility] | [address] | [address] | | | TESTS | | | [...] ANA MARIA | [address] | [place], [place] | | | [facility]ULIANN [facility] | [facility] | [address] | | | TESTS | | | [...] (H) | 70 - 99 mg/dL | [facility] - | | | GLUCOSE, | | [...] RODGERS | [address] | [place], [place] | | | JULIANN SILVA [facility]ARE | [facility] | [address] | | | TESTS | | | [...] MARIA | [address] | [place], [place] | | | JULIANN SILVA OF [facility] | [address] | [address] | | | TESTS | | | [...] | + + + + + | [facility] | [address] | [place] [address] | | | SERVICES, CORE | PARK [...] | + + + + + | [facility] | [address] | [place] [address] | | | SERVICES, CORE | TABITHA [...] | + + + + + | [facility] | [address] | [place] [address] | | | ИРИНА ANTOINE | PARK [...] MARQUAM | [address] | [place], [place] | | | [facility] | [address] | [address] | | | TESTS | | | | + + + + + X-RAY PORTABLE CHEST 1 VIEW (03/20/2017 6:33 AM PDT) + + | Specimen | + + | | + + + + + | Narrative | Performed At | + + + | EXAM: [facility] CHEST 1 VIEW 03/20/17 04:29:28 HISTORY: ECMO [...] Interface - 03/20/2017 10:12 AM PDT EXAM: [facility] CHEST 1 | | VIEW 03/20/17 04:29:28 [...] | | + +---------+ + + | [facility] | | | | | VOICE [...] - MARRANDIAM | [address] | [place], [place] | | | JULIANN SILVA OF CARE | [address] | [address] | | | TESTS | | | [...] RODGERS | [address] | [place], [place] | | | JULIANN SILVA OF [facility] | [address] | [address] | | | TESTS | | | [...] MARQUAM | [address] | [place], [place] | | | JULIANN SILVA OF CARE | [address] | [address] | | | TESTS | | | [...] MARIA | [address] | [place], [place] | | | RICARDO POINT OF [facility] | [address] | [address] | | | TESTS | | | [...] [facility] | [address] | [place] [address] | | | SERVICES, CORE | PARK [...] [facility] | [address] | [place] [address] | | | SERVICES, CORE | TABITHA [...] [facility] | [address] | [place] [address] | | | ARASH, ИРИНА | TABITHA [...] [facility] | [address] | [place] [address] | | | SERVICES, CORE | PARK [...] | | | LABORATORY | | | NIGERIAN | | | SERVICES, | | | [...] | + + + + + | [facility] | [address] | [place] [address] | | | SERVICES, CORE | TABITHA [...] - [facility] | [address] | [place], [place] | | | JULIANN SILVA OF CARE | [facility] | [address] | | | TESTS | | | [...] [facility] | [address] | [place], [place] | | | JULIANN SILVA OF [place]LEX[place] | [address] | [address] | | | TESTS | | | [...] | + + + + + | [facility] | [address] | [place] [address] | | | ARASH CORE | PARK [...] [facility] | [address] | [place], [place] | | | JULIANN SILVA OF CARE | [facility] | [address] | | | TESTS | | | [...] (H) | 70 - 99 mg/dL | [facility] - | | | GLUCOSE, | | [...] MARIA | [address] | [place], [place] | | | JULIANN SILVA OF [facility] | [address] | [address] | | | TESTS | | | [...] | + + + + + | [facility] | [address] | [place] [address] | | | SERVICES, CORE | TABITHA [...] [facility] | [address] | [place], [place] | | | RICARDO POINT OF CARE | [address] | [address] | | | TESTS | | | [...] | + + + + + | [facility] | [address] | [place] [address] | | | SERVICES, ИРИНА | TABITHA [...] [facility] | [address] | [place], [place] | | | JULIANN SILVA OF CARE | [facility] | [address] | | | TESTS | | | [...] [facility] | [address] | [place] [address] | | | SERVICES, CORE | PARK [...] | + + + + + | [facility] | [address] | [place] [address] | | | SERVICES, CORE | TABIHTA [...] (H) | 70 - 99 mg/dL | [facility] - | | | GLUCOSE, | | [...] + + + | [facility] | [address] | [place], [place] | | | RICARDO POINT OF CARE | [address] | [address] | | | TESTS | | | [...] [facility] | [address] | [place] [address] | | | SERVICES, CORE | TABITHA [...] | + + + + + | [facility] | [address] | [place] [address] | | | SERVICES, CORE | TABITHA [...] | + + + + + | [facility] | [address] | [place] [address] | | | SERVICES, CORE | PARK [...] | + + + + + | [facility] | [address] | [place] [address] | | | SERVICES, CORE | TABITHA [...] [facility] | [address] | [place], [place] | | | JULIANN SILVA OF CARE | [address] | [address] | | | TESTS | | | [...] MARRANDIAM | [address] | [place], [place] | | | RICARDO POINT OF CARE | [address] | [address] | | | TESTS | | | [...] (H) | 70 - 99 mg/dL | [facility] - | | | GLUCOSE, | | [...] [facility] | [address] | [place], [place] | | | JULIANN SILVA OF [facility] | [address] | [address] | | | TESTS | | | [...] | + + + + + | [facility] | [address] | [place] [address] | | | SERVICES, CORE | PARK [...] DEPT OF | [address] | [place], [place] | | | CARDIOLOGY | [facility] | [address] | | + + + + + CAPILLARY BLOOD GLUCOSE (NO CHG), POC (03/19/2017 1:05 PM PDT) + +---------+ + + + | Component | Value | Ref Range | Performed | Pathologist | | | | | At | Signature | + +---------+ + + + | BLOOD | 137 (H) | 70 - 99 mg/dL | [facility] - | | | GLUCOSE, | | [...] [facility] | [address] | [place], [place] | | | RICARDO POINT OF CARE | [address] | [address] | | | TESTS | | | | + + + + + SD-XL-CEK-HBPOC RT (03/19/2017 1:04 PM PDT) + + [...] [facility] | [address] | [place], [place] | | | RICARDO [place] OF [facility] | [address] | [address] | | | TESTS | | | [...] + + + + | PRODUCT | [id number] | | [facility] | | | UNIT [...] + + + + | EXPIRATION | [id number] | | [facility] | | | DATE [...] + + + + | BLOOD | [id number] | | [facility] | | | PRODUCT [...] LABORATORY | [address] | [place] [address] | | | SERVICES, | [address] [...] + + + + | PRODUCT | [id number] | | [facility] | | | UNIT [...] + + + + | EXPIRATION | [id number] | | [facility] | | | DATE [...] + + + + | BLOOD | [id number] | | [facility] | | | PRODUCT [...] | + + + + + | [facility] | [address] | [place] [address] | | | SERVICES, | [address] [...] + + + + | PRODUCT | [id number] | | [facility] | | | UNIT [...] + + + + | EXPIRATION | [id number] | | [facility] | | | DATE [...] + + + + | BLOOD | [id number] | | [facility] | | | PRODUCT [...] | + + + + + | [facility] | [address] | [place] [address] | | | SERVICES, | [address] [...] + + + + | PRODUCT | [id number] | | [facility] | | | UNIT [...] + + + + | EXPIRATION | [id number] | | [facility] | | | DATE [...] + + + + | BLOOD | [id number] | | [facility] | | | PRODUCT [...] | + + + + + | [facility] | [address] | [place] [address] | | | SERVICES, | [address] [...] [facility] | [address] | [place] [address] | | | SERVICES, ИРИНА | TABITHA [...] | | | LABORATORY | | | NIGERIAN | | | SERVICES, | | | [...] | + + + + + | [facility] | [address] | [place] [address] | | | SERVICES, CORE | TABITHA [...] | + + + + + | [facility] | [address] | [place] [address] | | | SERVICES, CORE | TABITHA [...] | + + + + + | [facility] | [address] | [place] [address] | | | SERVICES, CORE | [address] | | | + + + + + [facility] ECMO REV (EXT)AND/OR DECANNULATION (03/19/2017 12:36 PM [...] Siria | | | GISELL Preston PhD [facility] [address] [id number] [place], | | | [place] [address] | | + + + ABG-FULL ABL, [...] MARIA | [address] | [place], [place] | | | JULIANN SILVA OF CARE | [address] | [address] | | | TESTS | | | [...] [facility]QU[facility] | [address] | [place], [place] | | | JULIANN SILVA OF [facility] | [address] | [address] | | | TESTS | | | | + + + + + QU-BK-VOW-HB,POC RT (03/19/2017 10:24 AM PDT) + + [...] [facility] | [address] | [place], [place] | | | RICARDO POINT OF CARE | [address] | [address] | | | TESTS | | | [...] MARIA | [address] | [place], [place] | | | JULIANN SILVA OF ALEXIS | [facility] | [address] | | | TESTS | | | | + + + + + ME-IR-LRS-HB,POC RT (03/19/2017 10:06 AM PDT) + + [...] [facility] | [address] | [place], [place] | | | JULIANN SILVA OF CARE | [address] | [address] | | | TESTS | | | | + + + + + BB-GR-AVS-HB,POC RT (03/19/2017 9:51 AM PDT) + + [...] [facility] | [address] | [place], [place] | | | JULIANN SILVA OF [place] | [address] | [address] | | | TESTS | | | [...] + + + + | PRODUCT | [id number] | | [facility] | | | UNIT [...] + + + + | EXPIRATION | [id number] | | [facility] | | | DATE [...] + + + + | BLOOD | [id number] | | [facility] | | | PRODUCT [...] | + + + + + | [facility] | [address] | [place] [address] | | | SERVICES, | [address] [...] + + + + | PRODUCT | [id number] | | [facility] | | | UNIT [...] + + + + | EXPIRATION | [id number] | | [facility] | | | DATE [...] + + + + | BLOOD | [id number] | | [facility] | | | PRODUCT [...] + | [facility] | [address] | [place] [address] | | | SERVICES, | [address] [...] + + + + | PRODUCT | [id number] | | [facility] | | | UNIT [...] + + + + | EXPIRATION | [id number] | | [facility] | | | DATE [...] + + + + | BLOOD | [id number] | | [facility] | | | PRODUCT [...] [facility] | [address] | [place] [address] | | | SERVICES, | [address] [...] + + + + | PRODUCT | [id number] | | [facility] | | | UNIT [...] + + + + | EXPIRATION | [id number] | | [facility] | | | DATE [...] + + + + | BLOOD | [id number] | | [facility] | | | PRODUCT [...] + + | [facility] | [address] | [place] [address] | | | SERVICES, | [address] | | | | TRANSFUSION MEDICINE | | | | + + + + + X-RAY PORTABLE CHEST 1 VIEW (03/19/2017 9:13 AM PDT) + + | Specimen | + + | | + + + + + | Narrative | Performed At | + + + | EXAM: [facility] CHEST 1 VIEW HISTORY: ECMO. Evaluate cannula | [facility] | | placement. COMPARISON: Yesterday FINDINGS: Endotracheal | RADIOLOGY VOICE | | tube, Clayton-Олег catheter and enteric tube remain in place. [...] Interface - 03/19/2017 9:17 AM PDT EXAM: VA CHEST 1 | | VIEW HISTORY: ECMO. Evaluate cannula placement.COMPARISON: YesterdayFINDINGS: | | Endotracheal tube, Clayton-Олег catheter and enteric tube remain in place. [...] [facility] | [address] | [place], [place] | | | JULIANN SILVA OF CARE | [facility] | [address] | | | TESTS | | | [...] [facility] | [address] | [place], [place] | | | JULIANN SILVA OF CARE | [address] | [address] | | | TESTS | | | [...] | + + + + + | [facility] | [address] | [place] [address] | | | ИРИНА ANTOINE | TABITHA [...] (H) | 70 - 99 mg/dL | [facility] - | | | GLUCOSE, | | [...] [facility] | [address] | [place], [place] | | | RICARDO POINT OF CARE | [address] | [address] | | | TESTS | | | [...] [facility] | [address] | [place], [place] | | | JULIANN SILVA OF ALEXIS | [facility] | [address] | | | TESTS | | | [...] BLU[facility] | [address] | [place], [place] | | | JULIANN SILVA OF CARE | [facility] | [address] | | | TESTS | | | [...] (H) | 70 - 99 mg/dL | [facility] - | | | GLUCOSE, | | [...] MARIA | [address] | [place], [place] | | | JULIANN SILVA OF [facility] | [address] | [address] | | | TESTS | | | [...] | + + + + + | [facility] | [address] | [place] [address] | | | SERVICES, CORE | TABITHA [...] [facility] | [address] | [place], [place] | | | RICARDO POINT OF CARE | [address] | [address] | | | TESTS | | | [...] MARRANDIAM | [address] | [place], [place] | | | RICARDO POINT OF CARE | [address] | [address] | | | TESTS | | | [...] [facility] | [address] | [place], [place] | | | JULIANN SILVA OF [place]LEX[place] | [address] | [address] | | | TESTS | | | [...] [facility] | [address] | [place] [address] | | | SERVICES, CORE | PARK [...] [facility] | [address] | [place], [place] | | | JULIANN SILVA OF [facility] | [facility] | [address] | | | TESTS | | | [...] | + + + + + | [facility] | [address] | [place] [address] | | | SERVICES, CORE | TABITHA [...] | + + + + + | [facility] | [address] | [place] [address] | | | SERVICES, CORE | TABITHA [...] | + + + + + | [facility] | [address] | [place] [address] | | | SERVICES, CORE | PARK [...] [facility] | [address] | [place] [address] | | | SERVICES, CORE | PARK [...] [facility] | [address] | [place] [address] | | | SERVICES, CORE | PARK [...] [facility] | [address] | [place] [address] | | | SERVICES, CORE | PARK [...] | | | LABORATORY | | | NIGERIAN | | | SERVICES, | | | [...] | + + + + + | [facility] | [address] | [place] [address] | | | SERVICES, CORE | PARK [...] [facility] | [address] | [place] [address] | | | SERVICES, CORE | PARK [...] | + + + + + | [facility] | [address] | [place] [address] | | | SERVICES, CORE | TABITHA [...] [facility] | [address] | [place], [place] | | | RICARDO POINT OF CARE | [address] | [address] | | | TESTS | | | [...] | + + + + + | [facility] | [address] | [place] [address] | | | SERVICES, CORE | PARK [...] [facility] | [address] | [place], [place] | | | JULIANN SILVA OF CARE | [address] | [address] | | | TESTS | | | [...] - BLU[facility] | [address] | [place], [place] | | | RICARDO POINT OF CARE | [address] | [address] | | | TESTS | | | [...] | + + + + + | [facility] | [address] | [place] [address] | | | SERVICES, CORE | TABITHA [...] (H) | 70 - 99 mg/dL | [facility] - | | | GLUCOSE, | | [...] MARIA | [address] | [place], [place] | | | JULIANN SILVA OF ALEXIS | [facility] | [address] | | | TESTS | | | [...] MARIA | [address] | [place], [place] | | | JULIANN SILVA OF ALEXIS | [facility] | [address] | | | TESTS | | | [...] (H) | 70 - 99 mg/dL | [facility] - | | | GLUCOSE, | | [...] [facility] | [address] | [place], [place] | | | JULIANN SILVA OF CARE | [address] | [address] | | | TESTS | | | [...] [facility] | [address] | [place] [address] | | | SERVICES, CORE | PARK [...] | + + + + + | [facility] | [address] | [place] [address] | | | SERVICES, CORE | PARK [...] MAR[facility] | [address] | [place], [place] | | | JULIANN SILVA OF CARE | [address] | [address] | | | TESTS | | | [...] [facility] | [address] | [place] [address] | | | ARASH, ИРИНА | TABITHA [...] (H) | 70 - 99 mg/dL | [facility] - | | | GLUCOSE, | | [...] [facility] | [address] | [place], [place] | | | JULIANN SLIVA OF ALEXIS | [facility] | [address] | | | TESTS | | | [...] [facility] | [address] | [place], [place] | | | RICARDO POINT OF CARE | [address] | [address] | | | TESTS | | | [...] [facility] | [address] | [place] [address] | | | SERVICES, CORE | TABITHA [...] [facility] | [address] | [place] [address] | | | ИРИНА ANTOINE | PARK [...] - [facility] | [address] | [place], [place] | | | RICARDO POINT OF CARE | [address] | [address] | | | TESTS | | | [...] (H) | 70 - 99 mg/dL | [facility] - | | | GLUCOSE, | | [...] + + + | [facility] | [address] | [place], [place] | | | JULIANN SILVA OF [facility] | [address] | [address] | | | TESTS | | | [...] | + + + + + | [facility] | [address] | [place] [address] | | | SERVICES, CORE | PARK [...] [facility] | [address] | [place] [address] | | | SERVICES, CORE | TABITHA [...] [facility] | [address] | [place] [address] | | | SERVICES, CORE [...] [facility] | [address] | [place] [address] | | | ИРИНА ANTOINE | TABITHA [...] | | | LABORATORY | | | NIGERIAN | | | SERVICES, | | | [...] | + + + + + | [facility] | [address] | [place] [address] | | | SERVICES, CORE | PARK [...] | + + + + + | [facility] | [address] | [place] [address] | | | SERVICES, CORE | [...] [facility] | [address] | [place] [address] | | | ИРИНА ANTOINE | TABITHA [...] | + + + + + | [facility] | [address] | [place] [address] | | | SERVICES, CORE | TABITHA [...] (H) | 70 - 99 mg/dL | [facility] - | | | GLUCOSE, | | [...] + + + | [facility] | [address] | [place], [place] | | | JULIANN SILVA OF [facility] | [address] | [address] | | | TESTS | | | [...] MAR[facility] | [address] | [place], [place] | | | JULIANN SILVA OF ALEXIS | [facility] | [address] | | | TESTS | | | [...] | + + + + + | [facility] | [address] | [place] [address] | | | SERVICES, CORE | TABITHA [...] (H) | 70 - 99 mg/dL | [facility] - | | | GLUCOSE, | | [...] [facility] | [address] | [place], [place] | | | RICARDO POINT OF CARE | [address] | [address] | | | TESTS | | | [...] | + + + + + | [facility] | [address] | [place] [address] | | | SERVICES, ИРИНА | TABITHA [...] [facility] | [address] | [place] [address] | | | SERVICES, CORE | PARK [...] + | [facility] | [address] | [place] [address] | | | [place] | | | | + + + [...] [facility] | [address] | [place], [place] | | | JULIANN SILVA OF CARE | [address] | [address] | | | TESTS | | | [...] MARQU[facility] | [address] | [place], [place] | | | HILL, POINT OF CARE | [address] | [address] | | | TESTS | | | [...] [facility] | [address] | [place] [address] | | | SERVICES, CORE | PARK [...] | + + + + + | [facility] | [address] | [place] [address] | | | SERVICES, CORE | TABITHA [...] (H) | 70 - 99 mg/dL | [facility] - | | | GLUCOSE, | | [...] [facility] | [address] | [place], [place] | | | JULIANN SILVA OF ALEXIS | [address] | [address] | | | TESTS | | | [...] [facility] | [address] | [place], [place] | | | JULIANN SILVA OF CARE | [address] | [address] | | | TESTS | | | | + + + + + X-RAY PORTABLE CHEST 1 VIEW (03/18/2017 6:05 AM PDT) + + | Specimen | + + | | + + + + + | Narrative | Performed At | + + + | EXAM: VA CHEST 1 VIEW HISTORY: ECMO. Evaluate cannula placement. | [facility] | | COMPARISON: Yesterday FINDINGS: Endotracheal tube tip is | RADIOLOGY VOICE | | 2.5 cm above the jefferson. Enteric tube tip in the stomach. 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 In Interface - 03/18/2017 8:39 AM PDT EXAM: VA CHEST 1 | | VIEW HISTORY: ECMO. Evaluate cannula placement.COMPARISON: YesterdayFINDINGS: | | Endotracheal tube tip is 2.5 cm above the jefferson. Enteric tube tip in the stomach. | | Clayton-Олег catheter tip projects in the main pulmonary [...] ANA [facility]IA | [address] | [place], [place] | | | JULIANN SILVA OF CARE | [facility] | [address] | | | TESTS | | | [...] (H) | 60 - 99 mg/dL | [facility] - | | | GLUCOSE, | | [...] | + + + + + | [facility] | [address] | [place], [place] | | | RICARDO POINT OF CARE | [facility] | [address] | | | TESTS | | | [...] | + + + + + | [facility] | [address] | [place] [address] | | | SERVICES, CORE | TABITHA [...] [facility] | [address] | [place], [place] | | | RICARDO POINT OF CARE | [address] | [address] | | | TESTS | | | [...] BLUAM | [address] | [place], [place] | | | JULIANN SILVA OF CARE | [address] | [address] | | | TESTS | | | [...] | + + + + + | [facility] | [address] | [place] [address] | | | SERVICES, | [address] [...] [facility] | [address] | [place] [address] | | | SERVICES, | [address] [...] + + + + | PRODUCT | [id number] | | [facility] | | | UNIT [...] + + + + | EXPIRATION | [id number] | | [facility] | | | DATE [...] + + + + | BLOOD | [id number] | | [facility] | | | PRODUCT [...] | + + + + + | [facility] | [address] | [place] [address] | | | ARASH | [address] [...] (A) | 5 - 10 Minutes | [facility] - | | | CITRATED | | | [facility] | | | | | | JULIANN SILVA | | | | | | OF CARE | | | | | | TESTS | | + + + + + + | K - | 3.1 (A) | 1 - 3 Minutes | [facility] - | | | CITRATED | | [...] [facility] | [address] | [place], [place] | | | JULIANN SILVA OF ALEXIS | [address] | [address] | | | TESTS | | | [...] [facility] | [address] | [place] [address] | | | SERVICES, CORE | PARK [...] [facility] | [address] | [place] [address] | | | SERVICES, CORE | PARK [...] [facility] | [address] | [place] [address] | | | SERVICES, CORE | PARK [...] [facility] | [address] | [place] [address] | | | SERVICES, CORE | PARK [...] | | | LABORATORY | | | NIGERIAN | | | SERVICES, | | | [...] the MDRD equation recommended by the | [facility] | | National Kidney Disease Education Program. [...] | + + + + + | [facility] | [address] | [place] [address] | | | SERVICES, CORE | TABIHTA [...] | + + + + + | [facility] | [address] | [place] [address] | | | SERVICES, CORE | [address] | | | + + + + + MAGNESIUM, PLASMA (03/18/2017 1:19 AM PDT) + +-------+ + + + | Component | Value | Ref Range | Performed | Pathologist | | | | | At | Signature | + +-------+ + + + | MAGNESIUM,P | 2.3 | 1.8 - 2.5 mg/dL | PAM[facility] | | | DENISEMA | | | [...] | + + + + + | [facility] | [address] | [place] [address] | | | ARASH, ИРИНА | PARK [...] [facility] | [address] | [place] [address] | | | ARASH, ИРИНА | [address]ITH[address] [...] (H) | 60 - 99 mg/dL | [facility] | | | GLUCOSE, | | [...] [facility] | [address] | [place], [place] | | | JULIANN SILVA OF [facility] | [address] | [address] | | | TESTS | | | [...] | + + + + + | [facility] | [address] | [place] [address] | | | SERVICES, ИРИНА | TABITHA [...] [facility] | [address] | [place] [address] | | | SERVICES, ИРИНА | TABITHA [...] (H) | 60 - 99 mg/dL | [facility] | | | GLUCOSE, | | [...] [facility] | [address] | [place], [place] | | | JULIANN SILVA OF [facility] | [facility] | [address] | | | TESTS | | | [...] [facility] | [address] | [place], [place] | | | [facility] | [address] | [address] | | | TESTS | | | [...] [facility] | [address] | [place], [place] | | | JULIANN SILVA OF [facility] | [address] | [address] | | | TESTS | | | [...] (H) | 60 - 99 mg/dL | [facility] | | | GLUCOSE, | | [...] [facility] | [address] | [place], [place] | | | JULIANN SILVA OF [facility] | [facility] | [address] | | | TESTS | | | [...] | + + + + + | [facility] | [address] | [place] [address] | | | SERVICES, CORE | TABITHA [...] [facility] | [address] | [place], [place] | | | JULIANN SILVA OF CARE | [address] | [address] | | | TESTS | | | [...] [facility] | [address] | [place] [address] | | | SERVICES, CORE | PARK [...] [facility] | [address] | [place] [address] | | | ИРИНА ANTOINE | TABITHA [...] [facility] | [address] | [place] [address] | | | SERVICES, CORE | TABITHA [...] | + + + + + | [facility] | [address] | [place] [address] | | | ИРИНА ANTOINE | TABITHA [...] [facility] | [address] | [place] [address] | | | SERVICES, CORE | TABITHA [...] + | [facility] | [address] [facility] [address] | [place], [place] | | | [facility] | [address] | [address] | | | TESTS | | | [...] + + + | [facility] | [address] | [place], [place] | | | JULIANN SILVA OF CARE | [address] | [address] | | | TESTS | | | [...] [facility] | [address] | [place] [address] | | | SERVICES, CORE | PARK [...] [facility] | [address] | [place], [place] | | | JULIANN SILVA OF CARE | [address] | [address] | | | TESTS | | | [...] (H) | 60 - 99 mg/dL | [facility] | | | GLUCOSE, | | [...] [facility] | [address] | [place], [place] | | | JULIANN SILVA OF [place] | [address] | [address] | | | TESTS | | | [...] + + + + | PRODUCT | [id number] | | [facility] | | | UNIT [...] + + + + | EXPIRATION | [id number] | | [facility] | | | DATE [...] + + + + | BLOOD | [id number] | | [facility] | | | PRODUCT [...] | + + + + + | [facility] | [address] | [place] [address] | | | SERVICES, | [address] [...] + + + + | PRODUCT | [id number] | | [facility] | | | UNIT [...] + + + + | EXPIRATION | [id number] | | [facility] | | | DATE [...] + + + + | BLOOD | [id number] | | [facility] | | | PRODUCT [...] [facility] | [address] | [place] [address] | | | SERVICES, | [address] [...] [facility] | [address] | [place], [place] | | | [facility] | [facility] | [address] | | | TESTS | | | [...] [facility] | [address] | [place] [address] | | | SERVICES, ИРИНА | TABITHA [...] | + + + + + | [facility] | [address] | [place] [address] | | | SERVICES, CORE | PARK [...] + + | [facility] | [address] [facility] [address] | [place] [address] | | | SERVICES, CORE | TABITHA [...] [facility] | [address] | [place] [address] | | | SERVICES, CORE | TABITHA [...] | | | LABORATORY | | | NIGERIAN | | | SERVICES, | | | [...] 11 | 4 - 11 mmol/L | [facility] | | | GAP(ALB | | | [...] | + + + + + | [facility] | [address] | [place] [address] | | | ИРИНА ANTOINE | TABITHA [...] [facility] | [address] | [place] [address] | | | ИРИНА ANTOINE | PARK [...] | + + + + + | [facility] | [address] | [place] [address] | | | SERVICES, ИРИНА | TABITHA [...] [facility] | [address] | [place] [address] | | | SERVICES, CORE | TABITHA [...] RODGERS | [address] | [place], [place] | | | [facility] | [address] | [address] | | | TESTS | | | [...] | + + + + + | [facility] | [address] | [place] [address] | | | SERVICES, ИРИНА | TABITHA [...] MARQUAM | 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 In Interface - 03/17/2017 6:18 PM PDT [...] Note | + + | Service Account, [employer] In Interface - 03/17/2017 6:17 PM PDT [...] R[facility] | [address] | [place], [place] | | | [facility] | [facility] | [address] | | | TESTS | | | [...] [facility] | [address] | [place] [address] | | | SERVICES, CORE | PARK [...] Performed At | + + -------+ | [facility] | [facility] | | [facility] Adult Echocardiography | CARDIOLOG Y | | Laboratory [address] [place] [address], | | | [place] [address] Pt Name: | | | RON MCKEON Study Date/Time 03/17/2017 / 10:30:26 | | | AMMRN: [id number] Most recent | | | prior: 03/15/2017Acc #: [id number] No. | | | previous echos: 1DOB: 1955 61 years Heart | | | Rate: 139 bpmHeight: 69.0 | | | in Blood Pressure: 133/83 | | | mm/HgWeight: 258.0 | | | lb Gender: | | | MBSA: 2.30 m2 Order | | | ID: [id number] [employer] Operator: Mauri Domingo LORENZO | | | Referring [...] | | pre-diabetes who is transferred to [facility] with cardiogenic shock in the | | [...] | | | Report electronically signed by: [id number] Jen Ovalle MD, PhD | | | (03/17/2017, 1:53:40 PM) Final | | | | | |Report electronically signed by: [id number] Jen Ovalle MD, PhD (03/17/2017, | | |1:53:40 PM) | | | | | | | | | | | | Final | | + + -------+ + + | Procedure Note | + + | Interface, Cardiology Results - 03/17/2017 1:53 PM [facility] | | [facility] Echocardiography Laboratory [address] [place] [address] | | [place], [place] [address] Pt Name: RON Chaudhary | | MIKE Study Date/Time 03/17/2017 / 10:30:26 AMMRN: [id number] Most | | recent prior: 03/15/2017Acc #: [id number] No. previous echos: 1DOB: | | 1955 61 years Heart Rate: 139 bpmHeight: 69.0 in Blood | | Pressure: 133/83 mm/HgWeight: 258.0 lb Gender: MBSA: | | 2.30 m2 Order ID: [id number] [employer] Operator: Mauri Domingo | | RDCSReferring Provider: Mellisa HajiPatient Location: 12KModalities Performed: | | Limited 2D, Color Doppler and Spectral Doppler Limited.Study Quality: Fair.Exam | | Indication: Heart failure; ECMO; s/p STEMIHistory: 61 year old male with a past medical | | history significant for hypertension, hyperlipidemia, ongoing tobacco use and | | pre-diabetes who is transferred to [facility] with cardiogenic shock in the setting of [...] | | Scoring: Report electronically signed by: [id number] Jen Ovalle MD, PhD (03/17/2017, | | [...] | | | |Report electronically signed by: [id number] Jen Ovalle MD, PhD (03/17/2017, | |1:53:40 PM) | | | | | | | | Final | + + + + + + + | Performing | Address | City/State/Zipcode | Phone Number | | Organization | | | | + + + + + | [facility] | [address] | [place], [place] | | | CARDIOLOGY | [address] | [address] | | + + + + + [...] MARRANDIAM | [address] | [place], [place] | | | JULIANN [facility]ARE | [address] | [address] | | | TESTS | | | [...] - BLUAM | [address] | [place], [place] | | | [facility] | [facility] | [address] | | | TESTS | | | [...] + + | [facility] | [address] | [place] [address] | | | SERVICES, CORE | PARK [...] | + + + + + | [facility] | [address] | [place] [address] | | | SERVICES, CORE | TABITHA [...] [facility] | [address] | [place] [address] | | | SERVICES, CORE | TABITHA [...] MARQUAM | [address] | [place], [place] | | | [facility] | [address] | [address] | | | TESTS | | | [...] RODGERS | [address] | [place], [place] | | | [facility] | [address] | [address] | | | TESTS | | | [...] MARQUAM | 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 In Interface - 03/17/2017 9:44 AM PDT EXAM: VA CHEST 1 | | VIEW 03/17/17 04:53:29 [...] - MARQU[facility] | [address] | [place], [place] | | | [facility] | [facility] | [address] | | | TESTS | | | [...] [facility] | [address] | [place] [address] | | | SERVICES, CORE | PARK [...] | | | LABORATORY | | | NIGERIAN | | | SERVICES, | | | [...] + + | [facility] | [address] | [place] [address] | | | [facility] | [address] | | | + [...] | + + + + + | [facility] | [address] | [place] [address] | | | SERVICES, CORE | TABITHA [...] (H) | 60 - 99 mg/dL | [facility] - | | | GLUCOSE, | | [...] RODGERS | [address] | [place], [place] | | | [facility] | [address] | [address] | | | TESTS | | | [...] | + + + + + | [facility] | [address] | [place] [address] | | | SERVICES, CORE | PARK [...] | 56 (L) | >300 mmHg | PAMENDY | | | RATIO | | | [...] | + + + + + | [facility] | [address] | [place] [address] | | | SERVICES, CORE | TABITHA [...] | + + + + + | [facility] | [address] | [place] [address] | | | ИРИНА ANTOINE | TABITHA [...] | + + + + + | [facility] | [address] | [place] [address] | | | SERVICES, CORE | TABITHA [...] [facility] | [address] | [place] [address] | | | SERVICES, CORE | PARK [...] [facility] | [address] | [place] [address] | | | SERVICES, ИРИНА | PARK [...] | + + + + + | [facility] | [address] | [place] [address] | | | SERVICES, CORE | TABITHA [...] | + + + + + | [facility] | [address] | [place] [address] | | | SERVICES, ИРИНА | TABITHA [...] | + + + + + | [facility] | [address] | [place] [address] | | | ARASH, CORE | PARK [...] | + + + + + | [facility] | [address] | [place] [address] | | | SERVICES, CORE | TABITHA [...] + | [facility] | [address] | [place], [place] | | | CARDIOLOGY | [address] | [address] | | + + + + + ML-YS-BSB-HB,POC RT (03/17/2017 12:44 AM PDT) + + [...] MARRANDIAM | [address] | [place], [place] | | | [facility] | [address] | [address] | | | TESTS | | | [...] MARIA | [address] | [place], [place] | | | JULIANN [facility] | [address] | [address] | | | TESTS | | | [...] RODGERS | [address] | [place], [place] | | | [facility] | [address] | [address] | | | TESTS | | | [...] [facility] | [address] | [place] [address] | | | SERVICES, CORE | PARK [...] MARQUAM | [address] | [place], [place] | | | [facility] | [address] | [address] | | | TESTS | | | [...] RODGERS | [address] | [place], [place] | | | [facility] | [address] | [address] | | | TESTS | | | [...] | + + + + + | [facility] | [address] | [place] [address] | | | ИРИНА ANTOINE | TABITHA [...] MARQUAM | [address] | [place], [place] | | | [facility] | [facility] | [address] | | | TESTS | | | [...] | + + + + + | [facility] | [address] | [place] [address] | | | SERVICES, CORE | TABITHA [...] (H) | 60 - 99 mg/dL | [facility] - | | | GLUCOSE, | | [...] + + + | [facility] | [address] | [place], [place] | | | [facility] | [address] | [address] | | | TESTS | | | [...] MARQUAM | 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 | [address] | [place] [address] | | | ИРИНА ANTOINE | TABITHA [...] [facility] | [address] | [place] [address] | | | SERVICES, CORE | PARK [...] [facility] | [address] | [place] [address] | | | SERVICES, CORE | TABITHA [...] MARQUAM | [address] | [place], [place] | | | [facility] | [address] | [address] | | | TESTS | | | [...] - MARQUAM | [address] | [place], [place] | | | [facility] | [address] | [address] | | | TESTS | | | [...] + + + | [facility] | [address] | [place], [place] | | | [facility] | [address] | [address] | | | TESTS | | | [...] MARQUAM | [address] | [place], [place] | | | [facility] | [address] | [address] | | | TESTS | | | [...] [facility] | [address] | [place] [address] | | | ИРИНА ANTOINE | TABITHA [...] | | | LABORATORY | | | NIGERIAN | | | SERVICES, | | | [...] | + + + + + | [facility] | [address] | [place] [address] | | | SERVICES, CORE | TABITHA [...] MARQUAM | [address] | [place], [place] | | | [facility] | [address] | [address] | | | TESTS | | | [...] [facility] | [address] | [place] [address] | | | ИРИНА ANTOINE | TABITHA [...] RODGERS | [address] | [place], [place] | | | [facility] | [address] | [address] | | | TESTS | | | | + + + + + OPERATION RECORD (03/16/2017 9:30 AM PDT) + + | Procedure Note | + + | Dale Mak MD - 03/15/2017 3:42 PM PDT Date of Service: 03/15/2017 Attending | | Surgeon:Ron Powell MD. Shipping Point Inspector(s):Dale Mak MD. | | Preoperative Diagnoses: 1.Cardiogenic [...] The | | patient was transferred to [facility] for further management. At [facility], the patient continued | | to be [...] cannulation with micropuncture | | wire. A 7-Egyptian sheath was placed in an antegrade direction down the SFA for distal | | perfusion. A 19-Egyptian arterial cannula was placed in a retrograde [...] 03/15/2017 15:23:00DT: 03/15/2017 15:42:27Job #: | | [id number] | | | |A 19-Egyptian arterial cannula was placed in a retrograde [...] |HS/MODL | | | | | | /[id number] | + + CBC (HEMOGRAM) ONLY (03/16/2017 [...] + + | [facility] | [address] | [place] [address] | | | ARASH, ИРИНА | [address] | | | + [...] | + + + + + | [facility] | [address] | [place] [address] | | | SERVICES, CORE | TABITHA [...] | + + + + + | [facility] | [address] | [place] [address] | | | SERVICES, CORE | PARK [...] - MARQU[facility] | [address] | [place], [place] | | | [facility] | [facility] | [address] | | | TESTS | | | [...] (H) | 60 - 99 mg/dL | [facility] - | | | GLUCOSE, | | [...] NINOSKAQUAM | [address] | [place], [place] | | | [facility] | [address] | [address] | | | TESTS | | | [...] RODGERS | [address] | [place], [place] | | | JUL[facility]ANN [facility] | [facility] | [address] | | | TESTS | | | | + + + + + X-RAY PORTABLE CHEST 1 VIEW (03/16/2017 5:44 AM PDT) + + | Specimen | + + | | + + + + + | Narrative | Performed At | + + + | EXAM: VA CHEST 1 VIEW HISTORY: Evaluate cannula placement. heart | [facility] | | failure. COMPARISON: Yesterday FINDINGS: Endotracheal | RADIOLOGY VOICE | | tube, Clayton-Олег catheter and enteric tube remain in place. [...] Note | + + | Service Account, [employer] In Interface - 03/16/2017 8:27 AM PDT EXAM: VA CHEST 1 | | VIEW HISTORY: Evaluate cannula placement. heart failure.COMPARISON: YesterdayFINDINGS: | | Endotracheal tube, Clayton-Олег catheter and enteric tube remain in place. [...] MARQU[facility] | [address] | [place], [place] | | | [facility] | [address] | [address] | | | TESTS | | | [...] RODGERS | [address] | [place], [place] | | | [facility] | [facility] | [address] | | | TESTS | | | | + + + + + OC-LW-HRG-HBPOC RT (03/16/2017 3:42 AM PDT) + + [...] R[facility]GERS | [address] | [place], [place] | | | [facility] | [address] | [address] | | | TESTS | | | [...] MARIA | [address] | [place], [place] | | | JUL[facility]ANN [facility] | [address] | [address] | | | TESTS | | | [...] | + + + + + | [facility] | [address] | [place] [address] | | | SERVICES, CORE | TABITHA [...] RODGERS | [address] | [place], [place] | | | [facility] | [address] | [address] | | | TESTS | | | [...] [facility] | [address] | [place] [address] | | | ИРИНА ANTOINE | TABITHA [...] | + + + + + | [facility] | [address] | [place] [address] | | | SERVICES, CORE | PARK [...] | | | LABORATORY | | | NIGERIAN | | | SERVICES, | | | [...] [facility] | [address] | [place] [address] | | | SERVICES, CORE | PARK [...] [facility] | [address] | [place] [address] | | | SERVICES, CORE | TABITHA [...] | + + + + + | [facility] | [address] | [place] [address] | | | SERVICES, CORE | TABITHA [...] | + + + + + | [facility] | [address] | [place] [address] | | | SERVICES, CORE | [address] | | | + + + + + MAGNESIUM, PLASMA (03/16/2017 3:35 AM PDT) + +-------+ + + + | Component | Value | Ref Range | Performed | Pathologist | | | | | At | Signature | + +-------+ + + + | MAGNESIUM,P | 2.1 | 1.8 - 2.5 mg/dL | PAMENDY | | | LASMA | | | [...] | + + + + + | [facility] | [address] | [place] [address] | | | SERVICES, CORE | TABITHA [...] MARIA | [address] | [place], [place] | | | J[facility] | [address] | [address] | | | TESTS | | | [...] | + + + + + | [facility] | [address] | [place] [address] | | | ARASH, ИРИНА | TABITHA [...] (H) | 60 - 99 mg/dL | [facility] - | | | GLUCOSE, | | [...] MARIA | [address] | [place], [place] | | | [facility] | [address] | [address] | | | TESTS | | | [...] | + + + + + | [facility] | [address] | [place] [address] | | | SERVICES, CORE | TABITHA [...] | | | LABORATORY | | | NIGERIAN | | | SERVICES, | | | [...] | + + + + + | S B E | [address] | [place] [address] | | | ARASH, CORE | [address] | | | + + + + + EP-YY-QCA-HB,POC RT (03/16/2017 12:22 AM PDT) + + [...] RODGERS | [address] | [place], [place] | | | [facility] | [address] | [address] | | | TESTS | | | [...] MARQUAM | [address] | [place], [place] | | | [facility] | [address] | [address] | | | TESTS | | | [...] MARQUAM | [address] | [place], [place] | | | [facility] | [address] | [address] | | | TESTS | | | [...] RODGERS | [address] | [place], [place] | | | [facility] | [address] | [address] | | | TESTS | | | | + + + + + X-RAY PORTABLE CHEST 1 VIEW (03/15/2017 9:44 PM PDT) + + | Specimen | + + | | + + + + + | Narrative | Performed At | + + + | EXAM: VA CHEST 1 VIEW HISTORY: Evaluate new endotracheal [...] Note | + + | Service Account, [employer] In Interface - 03/16/2017 8:27 AM PDT EXAM: VA CHEST 1 | | VIEW HISTORY: Evaluate [...] MARQU[facility] | [address] | [place], [place] | | | [facility] | [facility] | [address] | | | TESTS | | | [...] (H) | 60 - 99 mg/dL | [facility] - | | | GLUCOSE, | | [...] MARIA | [address] | [place], [place] | | | JULIANN SILVA OF [facility] | [address] | [address] | | | TESTS | | | [...] [facility] | [address] | [place] [address] | | | SERVICES, CORE | PARK [...] | + + + + + | [facility] | [address] | [place] [address] | | | SERVICES, CORE | TABITHA [...] | + + + + + | S B E | [address] | [place] [address] | | | SERVICES, ИРИНА | TABITHA [...] | Ambubag and suction available at bedside. [facility] Mac 4 used to | | | visualize airway, Grade III view with old blood and new blood | | | present in laryngopharynx plus edema. A [employer] Airway Exchange | | | catheter was [...] MAR[facility] | [address] | [place], [place] | | | [facility] | [address] | [address] | | | TESTS | | | | + + + + + KH-ED-TOK-HB,POC RT (03/15/2017 7:39 PM PDT) + + [...] RODGERS | [address] | [place], [place] | | | JUL[facility]ANN [facility] | [address] | [address] | | | TESTS | | | [...] MARQUAM | [address] | [place], [place] | | | [facility] | [address] | [address] | | | TESTS | | | [...] RODGERS | [address] | [place], [place] | | | [facility] | [facility] | [address] | | | TESTS | | | | + + + + + X-RAY PORTABLE CHEST 1 VIEW (03/15/2017 5:51 PM PDT) + + | Specimen | + + | | + + + + + | Narrative | Performed At | + + + | STUDY: VA CHEST 1 VIEW 03/15/17 17:40:08 COMPARISON: 03/15/17 [...] Interface - 03/15/2017 6:20 PM PDT STUDY: VA CHEST 1 | | VIEW 03/15/17 17:40:08COMPARISON: [...] | pause verifies correct patient, procedure, equipment, dealer support technician | | | and site/side marked as [...] modified Seldinger technique (a | | | vicdvepj-yfen-jgc-qesquc-csdj-mjvu-mnokeck-hea-bebtrshf) was used for | | | vessel [...] Name: Ron Mckeon MRN: | | | [id number] 03/15/2017 Time: 5:26 PM Diagnosis: shock At [...] Ramon Alvarado | | | MD [place], [facility] Emergency Medicine Personal Pager: [phone] | | | | | + + + LACTATE (03/15/2017 4:49 PM PDT) + + + + + + | Component | Value | Ref Range | Performed | Pathologist | | | | | At | Signature | + + + + + + | LACTATE | 7.5 () | mmol/L | [facility] | | | | | | LABORATORY [...] | + + + + + | [facility] | [address] | [place] [address] | | | SERVICES, CORE | TABITHA [...] (H) | 60 - 99 mg/dL | [facility] - | | | GLUCOSE, | | [...] RODGERS | [address] | [place], [place] | | | [facility] | [address] | [address] | | | TESTS | | | [...] RODGERS | [address] | [place], [place] | | | [facility] | [address] | [address] | | | TESTS | | | | + + + + + X-RAY PORTABLE CHEST 1 VIEW (03/15/2017 4:03 PM PDT) + + | Specimen | + + | | + + + + + | Narrative | Performed At | + + + | EXAM: VA CHEST 1 VIEW 03/15/17 15:42:37 HISTORY: ECMO [...] Note | + + | Service Account, [employer] In Interface - 03/15/2017 6:18 PM PDT EXAM: VA CHEST 1 | | VIEW 03/15/17 15:42:37 [...] [facility] | | | | | | RICAROD, POINT | | | | | | [...] RODGERS | [address] | [place], [place] | | | JULIANN SILVA OF CARE | [address] | [address] | | | TESTS | | | [...] MARQU[facility] | [address] | [place], [place] | | | [facility] | [address] | [address] | | | TESTS | | | [...] BLUAM | [address] | [place], [place] | | | JULIANN SILVA OF [facility] | [address] | [address] | | | TESTS | | | [...] | + + + + + | [facility] | [address] | [place] [address] | | | SERVICES, CORE | TABITHA [...] | + + + + + | [facility] | [address] | [place] [address] | | | ARASH, ИРИНА | TABITHA [...] | + + + + + | [facility] | [address] | [place] [address] | | | SERVICES, CORE | PARK [...] | + + + + + | [facility] | [address] | [place] [address] | | | SERVICES, CORE | TABITHA [...] | | | LABORATORY | | | NIGERIAN | | | SERVICES, | | | [...] | + + + + + | [facility] | [address] | [place] [address] | | | SERVICES, CORE | TABITHA [...] Division of Cardiothoracic Surgery | | | [facility] - Mail Code L353 [address] | | | [place] [address] | | + + + X-RAY PORTABLE CHEST 1 VIEW (03/15/2017 2:32 PM PDT) + + | Specimen | + + | | + + + + + | Narrative | Performed At | + + + | STUDY: VA CHEST 1 VIEW 03/15/17 14:21:08 COMPARISON: 03/15/17. [...] Note | + + | Service Account, [employer] In Interface - 03/15/2017 2:46 PM PDT STUDY: [facility] CHEST 1 | | VIEW 03/15/17 14:21:08COMPARISON: [...] + + + + | PRODUCT | [id number] | | [facility] | | | UNIT [...] + + + + | EXPIRATION | [id number] | | [facility] | | | DATE [...] + + + + | BLOOD | [id number] | | [facility] | | | PRODUCT [...] [facility] | [address] | [place] [address] | | | SERVICES, | [address] [...] + + + + | PRODUCT | [id number] | | [facility] | | | UNIT [...] + + + + | EXPIRATION | [id number] | | [facility] | | | DATE [...] + + + + | BLOOD | [id number] | | [facility] | | | PRODUCT [...] [facility] | [address] | [place] [address] | | | SERVICES, | [address] [...] + + + + | PRODUCT | [id number] | | [facility] | | | UNIT [...] + + + + | EXPIRATION | [id number] | | [facility] | | | DATE [...] + + + + | BLOOD | [id number] | | [facility] | | | PRODUCT [...] [facility] | [address] | [place] [address] | | | SERVICES, | [address] [...] + + + + | PRODUCT | [id number] | | [facility] | | | UNIT [...] + + + + | EXPIRATION | [id number] | | [facility] | | | DATE [...] + + + + | BLOOD | [id number] | | [facility] | | | PRODUCT [...] | + + + + + | [facility] | [address] | [place] [address] | | | ARASH, | TABITHA ALICEA | | | | TRANSFUSION MEDICINE | | | | + + + + + MR-SK-WNZ-HB,POC RT (03/15/2017 1:23 PM PDT) + + + + + + | Component | Value | Ref Range | Performed | Pathologist | | | | | At | Signature | + + + + + + | HCO3 | 19.6 (L) | 21 - 28 mmol/L | [facility] - | | | ARTERIAL, | | [...] [facility] | [address] | [place], [place] | | | JULIANN [facility]IL[facility] OF CARE | [facility] | [address] | | | TESTS | | | [...] MARIA | [address] | [place], [place] | | | [facility]ARE | [address] | [address] | | | TESTS | | | [...] Performed At | + + + | [facility] | [facility] | | [facility]chocardiography | CARDIOLOGY | | Laboratory [address] [place] [address] | | | [place] [address] Pt Name: | | | RON Neena MCKEON Study Date/Time 03/15/2017 / 12:54:21 | | | PMMRN: [id number] Most recent | | | prior: -Acc #: [id number] No. previous | | | echos: 0DOB: 1955 61 years Heart Rate: | | | 145 bpmHeight: Blood | | | Pressure: 90/67 mm/HgWeight: 249.0 | | | lb Gender: | | | MBSA: 2.34 m2 Order | | | ID: [id number] [employer] Operator: Vahid Parmar [facility] | | | Referring Provider: Gaurav [...] Report electronically signed by: | | | [id number] Yajaira Johnson MD (03/15/2017, 3:38:52 PM) Final | | | | | | | | | | | | Final | | + + + + + | Procedure Note | + + | Interface, Cardiology Results - 03/15/2017 3:38 PM [facility] | | [facility] [address] [place] [address] | | [place], [place] [address] Pt Name: RON Chaudhary | | MIKE Study Date/Time 03/15/2017 / 12:54:21 PMMRN: [id number] Most | | recent prior: -Acc #: [id number] No. previous echos: 0DOB: 1955 61 | | years Heart Rate: 145 bpmHeight: Blood Pressure: 90/67 | | mm/HgWeight: 249.0 lb Gender: MBSA: 2.34 m2 | | Order ID: [id number] [employer] Operator: Vahid Parmar [facility] CANCER CENTERReferring Provider: | | Gaurav Castellanos Location: [...] values Report electronically signed by: | | [id number] Yajaira Johnson MD (03/15/2017, 3:38:52 PM) Final [...] | | | |Report electronically signed by: [id number] Yajaira Johnson MD (03/15/2017, 3:38:52 PM) | | | | | | | | Final | + + + + + + + | Performing | Address | City/State/Inscription House Health Centercode | Phone Number | | Organization | | | | + + + + + | [facility] | [address] | [place], [place] | | | CARDIOLOGY | [address] | [address] | | + + + + + X-RAY PORTABLE CHEST 1 VIEW (03/15/2017 12:46 PM PDT) + + | Specimen | + + | | + + + + + | Narrative | Performed At | + + + | STUDY: [facility] CHEST 1 VIEW 03/15/17 12:12:08 COMPARISON: None. [...] Note | + + | Service Account, [employer] In Interface - 03/15/2017 1:10 PM PDT STUDY: [facility] CHEST 1 | | VIEW 03/15/17 12:12:08COMPARISON: [...] DEPT OF | [address] | [place], [place] | | | CARDIOLOGY | [address] | [address] | | + + + + + [...] [facility] | [address] | [place] [address] | | | SERVICES, | [address] [...] [facility] | [address] | [place] [address] | | | SERVICES, | [address] [...] [facility] | [address] | [place] [address] | | | ARASH, ИРИНА | [address] [...] [facility] | [address] | [place] [address] | | | SERVICES, ИРИНА | [address] [...] [facility] | [address] | [place] [address] | | | SERVICES, | [address] [...] [facility] | [address] | [place] [address] | | | SERVICES, CORE | PARK [...] | + + + + + | [facility] | [address] | [place] [address] | | | SERVICES, CORE | TABITHA [...] | + + + + + | [facility] | [address] | [place] [address] | | | SERVICES, CORE | TABITHA [...] | | | LABORATORY | | | NIGERIAN | | | SERVICES, | | | [...] | + + + + + | [address] | [address] | [place] [address] | | | SERVICES, CORE | [address] | | | + + + + + [id number] RT (03/15/2017 12:16 PM PDT) + + [...] [facility] | [address] | [place], [place] | | | [facility] | [address] | [address] | | | TESTS | | | [...] of unspecified type of vessel, | | twin hills or graft | + + | Tongue [...] 5:37 | | | | | dose, [place] 03/29/17 at 0530 | | AM PDT [...] | | | | ONCE, 1 dose, [facility] 03/19/17 at 1415 | | PM [...] | | | | ONCE, 1 dose, [facility] 03/20/17 at | | AM PDT [...] 10:04 | | | | | dose, [place] 03/22/17 at 1000 | | AM PDT [...] | | | | First dose on [facility] 03/19/17 at | | AM PDT [...] 4:45 | | | | | dose, [facility] 03/19/17 at 1630 | | PM PDT | | | | + +-------+ +-------+---+---+ +---+---+ | | | +---+---+ + +-------+ +-------+---+---+ | furosemide (LASIX) injection 20 | Given | 03/20/20 | 20 mg | | | | mg 20 mg, intravenous, ONCE, 3:07 | | | | | dose, [facility] 03/20/17 at 0400 | | AM [...] | | | | | | Starting [facility] 03/19/17 at 1900, | | | [...] PDT | | | | | Until [facility] 04/02/17 at 2030, | | | [...] | | | | ONCE, 1 dose, [place] 03/15/17 at 1815 | | PM PDT [...] | | | | | | Until [facility] 04/02/17 at 2030, severe | | [...] | | | | | 1 dose, [facility] 03/18/17 at 0130 | | AM [...]
--- OUTSIDE RECORDS SUMMARY | ~2019-01-22 | XMS | Encounter Summary ---
Demographics + + + | Address | [address] | | | [place] [address] | + + + | Home Phone [...] [place] | | | | | [address] | | + + + + + Care Team Providers + +------+ + | Care Observer Electrical Prospecting Name | Role | Phone | + [...] + + | 11/18/ | [facility]phone | [facility] | Jenny, | Blood Pressure | | 2019 | | CARDIOLOGY [address] | [place], ASSOCIATE MUSIC PROFESSOR [address] | | | | | [place], | [place], | | | | | [place] [address] | [place] [address] | | | | | [phone] | [phone] | | | | | | | [...] | | | | | | [place] [address] | | | | | | [phone] | | | | | | | | +--------+ + + + + documented as of this encounter Visit Diagnoses Not on filedocumented in this encounter"
--- OUTSIDE RECORDS SUMMARY | ~2019-01-22 | XMS | Encounter Summary ---
Demographics + + + | Address | [address] | | | [place] [address] | + + + | Home Phone [...] [place] | | | | | [address] | | + + + + + Care Team Providers + +------+ + | Care Boat Cleaner Name | Role | Phone | [...] | 12/06/ | Refill | [facility] | Jenny, | Medication Refill | | 2018 | | CARDIOLOGY [address] | ADARSH [address] | | | | | [place], | [place], | | | | | [place] [address] | [place] [address] | | | | | [phone] | [phone] | | | | | | | [...] | | | | | | [place] [address] | | | | | | [phone] | | | | | | | | +--------+ + + + + documented as of this encounter Visit Diagnoses Not on filedocumented in this encounter"
--- OUTSIDE RECORDS SUMMARY | ~2019-01-22 | XMS | Encounter Summary ---
Demographics + + + | Address | [address] | | | [place] [address] | + + + | Home Phone [...] | | | | | [place] [address] | | + + + + + Care Team Providers + +------+ + | Care Hardware Engineer Name | Role | Phone | + +------+ + | Chato Matson MD | PCP | | + +------+ + Encounter Details +--------+ + + + + | Date | Type | Department | Care Team | Description | +--------+ + + + + | 10/11/ | Procedure | Diagnostic Imaging | | | | 2018 | Pass | Services at [facility] | | | | | | [address] | | | | | | [facility] | | | | | | Mailcode: [id number] | | | | | | [place] | | | | | | [place], [place] | | | | | | [address] | | | | | | [phone] | | | +--------+ + + + [...]
--- OUTSIDE RECORDS SUMMARY | ~2019-01-22 | XMS | Encounter Summary ---
Demographics + + + | Address | [address] | | | [place] [address] | + + + | Home Phone [...] | [place] | | | | | [address] | | + + + + + Care Team Providers + +------+ + | Care Parts Analyst Name | Role | Phone | [...] | | | involving | [address] [place] | | | | | [place] | [place] | [place] | | | | | coronary | [address] | [address] | | | | | artery of | Phone: | Phone: | | | | | [place] heart | [phone] | [phone] | | | | | without | Fax: | Fax: | | | | | angina | [phone] | [phone] | | | | | pectoris | | | + + + + + + + Encounter Details +--------+---------+ + + + | Date | Type | Department | Care Team | Description | +--------+---------+ + + + | 12/07/ | Office | [facility] | Randy Figueroa, | Coronary artery | | 2019 | Visit | [facility] | MD [address] | disease involving | | | | RE[facility] [address] [place], | [place] coronary | | | | [address] [place] | [place] [address] | artery of [place] | | | | [place] [address] | [phone] | heart without angina | | | | [phone] | | pectoris (Primary | | | [...] orig [facility]IAC [facility]ATION [address] [facility] [address] Cardiac Rehab Date: 12/07/2018 Patient Information Patient [...] in progress note. Electronically signed by: Gael oWo, 12/07/2018 14:23 Patient Name: Bob Will/: 1955/ [...] | 03/24/ | Office | Cardiology | Jneny, | | | 2018 | Visit | | ADARSH Santo [address] | | | | | | [place], | | | | | | [place] [address] | | | | | | [phone] | | | | | | | [...]
--- OUTSIDE RECORDS SUMMARY | ~2019-01-22 | XMS | Encounter Summary ---
Demographics + + + | Address | [address] | | | [place] [address] | + + + | Home Phone [...] [place] | | | | | [address] | | + + + + + Care Team Providers + +------+ + | Care Fitness Centre Manager Name | Role | Phone | [...] | | | | | | [place] [address] | | | | | | [phone] | | | +--------+ + + + [...] | | | | | | [place] [address] | | | | | | [phone] | | | | | | | | +--------+ + + + + documented as of this encounter Visit Diagnoses Not on filedocumented in this encounter"
--- OUTSIDE RECORDS SUMMARY | ~2019-01-22 | XMS | Encounter Summary ---
Demographics + + + | Address | [address] | | | [place] [address] | + + + | Home Phone | | + + + | Preferred Language | Unknown | + + + | Marital Status | | + + + | Anabaptism Affiliation | NRP | + + + [...] | | | | | [place] [address] | | + + + + + Care Team Providers + +------+ + | Care Toll Bridge Attendant Name | Role | Phone | [...] | | | | | (HCC) | [place], [place] | for Health | | | | | Stenosis of | [phone] | and Healing | | | | | coronary | Phone: | [place], [place] | | | | | artery | [phone] | [phone] | | | | | stent, | Fax: | Phone: | | | | | initial | [phone] | [phone] | | | | | encounter | | Fax: | | | | | Procedures | | [phone] | | | | | CONSULT TO [...] + + | 10/10/ | Hospital | [address] | Khurram Bedoya | | | 2018 - | Encounter | [address] | MD K[address] | | | | | [address] [place] [address] | [address] | | | 10/17/ | | [place], [place] | [place] | | | 2018 | | [address] | [address] | | | | | [phone] | [phone] | | | | | | | [...] Referring Physician & Institution: Other Dictation Primary/Outpatient First Sampler: Dr Jamal Guerrero MD Inpatient Attending Physician: Khurram Bedoya MD Author/Discharging Provider: LALA SCHOFIELD PA-C Admission Date: 10/10/2017 Discharge Date: 10/17/2017 Active Hospital Problems 1) *NSTEMI (non-ST elevated myocardial infarction) (HCC) 2) Coronary artery disease 3) Stenosis of coronary artery stent 4) Ischemic cardiomyopathy 5) Chronic systolic congestive heart failure (HCC) 7) Encounter for insertion of cardiac resynchronization therapy defibrillator (EARLY LEARNING TEACHER-D) 8) Paroxysmal atrial flutter (HCC) 9) Influenza, pneumonia 10) Prediabetes 11) Tobacco use Procedures 10/15/17: Successful percutaneous coronary intervention to the ostial left circumflex. One 3.0 x 18 mm Resolute Terrell drug-eluting stent. Successful percutaneous coronary transluminal angiopla sty of the distal left main extending into the left anterior descending coronary artery with final kissing balloon inflation with a 3.5 mm noncompliant and a 2.5 mm compliant balloon. 10/16/17: 1) EP study with VT induction 2) EARLY LEARNING TEACHER-D implantation Reason For Admission: Consideration of complex PCI vs CABG for in-stent restenosis of LCx and LM/LAD stents Hospital Course: Please see H&P for hospital course at [facility] prior to transfer to [facility]. Ron Mckeon is a 61 year [...] treatment who was admitted in transfer from [facility] on 10/11 for consideration of PCI vs [...] support--had one 3.0 x [address] ug-eluting stent placed in ostial L [...] 10/16. VT was induced, therefor e a EARLY LEARNING TEACHER-D was implanted. He is discharging home in good condition with follow up in 1 week w ith his First Sampler. The following problems were addressed this hospitalization: [...] uenza and underwent a coronary angiogram at [facility] which revealed in stent re-stenosis of both LM into LAD and LCx stents, mild disease of RCA. Transferred to [facility] for further onel luation. CTS was consulted for consideration of CABG vs complex PCI. Due to nonviable myocardium archie wn on cardiac PET and resting NM perfusion study, PCI was chosen over CABG. On 10/15 he underw ent angiography/PCI with impella support--had one 3.0 x 18 mm Resolute Terrell drug-eluting chery nt placed in ostial L [...] II, Stage C. Etiology ischemic. TTE at [facility] showed EF 30-35%, mildly reduced RV [...] the past --ICD: placed by EP 10/16, EARLY LEARNING TEACHER-D -- will need 1 week f/u for wound check, then 1 month device check with EP -- f/u with outpatient benefit authorizer 2-4 weeks # Paroxysmal Aflutter Noted Aflutter with RVR at admission in [facility]; treated with amiodarone infusion. He w as transitioned to oral amiodarone and maintained normal rhythm. Given that the aflutter occ urred in setting of severe sepsis, will not continue amiodarone or warfarin. If he has recur rent arrhythmia, this will be noted on EARLY LEARNING TEACHER-D and could consider anticoagulation at that time . However, he requires DAPT and has a possible history of recent GIB, so triple therapy shou ld be avoided if not necessary --rate control: metoprolol as above --anticoagulation: holding warfarin for now given DAPT and h/o GI B. Discuss further with outpatient benefit authorizer. May consider holding anticoagulation unless he demonstrates recurrent arrhythmia # Influenza type A - resolved # Community acquired pneumonia # Severe sepsis with shock, resolved Pt presented to [facility] 10/03 found to be Flu Apositive with [...] sepsis management , fluid resuscitation. EGD at [facility] on 10/05 showed gastritis, duodenitis, linear ulcerations [...] first post-hospitalization visit: 1. Wound check from EARLY LEARNING TEACHER-D placement 2. Consider restarting lisinopril if BPs improve and Cr is stable 3. Instructed pt to restart metformin on 08/18 but reevaluate based on Cr Schedule the following appointment(s) when you get home KULWINDER Stevens. Go on 10/19/2017. Why: at 1:15pm for heart failure follow up, to re-check labwork, and to have your wound ch ecked Contact information HEART [address] [address] KULWINDER Stevens. Go on 11/11/2017. Why: at 9:30am for cardiology follow up and to have your device checked Contact information HEART [address] [address] Medication List START taking these medications Childrens [...] Resume on 10/19. Indications: type 2 diabetes [facility] metoprolol succinate 25 mg Tb24 Commonly [...] circumflex. One 3.0 x 18 mm Resolute Terrell drug-eluting stent. Successful percutaneous coronary transluminal angiop [...] ths. You should be cleared by your benefit authorizer prior to returning to driving. If you [...] How to Contact us: Cardiology Division Office [phone] Cardiology Patient Phone Line EDUIN [address] Dr[address] Dr., Dr., PA-C Connie Barber, NP Karen Paladino, RN Margaret Kleist, RN Evenings or weekends: Ask for on-call benefit authorizer Drug Eluting Stent 1. Please take Plavix (clopidogrel) everyday which helps to keep the stent open. You need t o take it every day for one year and do not stop unless you are told to by your benefit authorizer . 2. Take an aspirin 81 mg once daily indefinitely. 3. You were referred for cardiac rehab and should start now that you have had a stent place d. 4. Follow up with your benefit authorizer within 2-4 weeks. 5. No elective surgeries [...] Lala Schofield PA-C Instructor of Cardiovascular Medicine [facility] [place] [facility] [place] I spent 36 minutes in coordination of care and oiar-zw-lxnr with the patient and/or their s urrogate in which the problems above were discussed Associated attestation - Khurram Bedoya MD - 10/17/2017 3:22 PM PSTCardiology Anthony souza I have seen and examined Mr. Mckeon and discussed the patient's management with the [facility] practitioner. I reviewed the practitioner's note above and agree with the documented f indings and plan of care. HKURRAM BEDOYA MD Director of the [facility] Hypertrophic Cardiomyopathy Clerical Proofreader of Echocardiography Ad Compositoraviation safety equipment technician Division of Cardiovascular Medicine documented in this encounter Discharge Instructions AttachmentsThe following attachments cannot be sent through Care Everywhere.WOUND CHECK (EN GLISH)ICD (IMPLANTABLE CARDIOVERTER-DEFIBRILLATOR): POST-OP (AZERBAIJANI)PAIN POST-SURGERY: ACUT E (AZERBAIJANI)OPIOIDS: SAFE USE (AZERBAIJANI)OPIOIDS: STORAGE AND DISPOSAL: GENERAL INFO (AZERBAIJANI)d ocumented in this encounter Medications at Time [...] Information: Implant date: 10/16/17 BiV-ICD pulse generator: Clinical Trial Assistant: [employer] Model number: [id number] Serial number: [id number] RA lead: Clinical Trial Assistant: [employer] Model number: [id number] Serial number: [id number] RV lead: Clinical Trial Assistant: [employer] Model number: [id number] Serial number: [id number] CS lead: Clinical Trial Assistant: [employer] Model number: [id number] Serial number: [id number] ICD PROGRAMMING: Bradycardia Parameters: Mode: DDD Lower rate limit: 50 Upper rate limit: 130 Output (A): 3.5 V at 0.4 ms Sensitivity (A): 0.3 mV Output (RV): 3.5 V at 0.4 ms Sensitivity (RV): 0.3 mV Output (CS): 2.0 V at 0.4ms Tachycardia Parameters: VT zone: 177-200 Therapies: Monitor VF zone: >200 bpm Therapies: 35 J x 6 PACING PERCENTAGE: AP: <0.1% ASSEMBLY INSPECTOR: 98.3% EPISODES SINCE IMPLANT: none. TODAY'S [...] and Device check in one month at [facility] device clinic. I have reque sted [...] MD Electrophysiology Fellow Division of Cardiovascular Medicine [facility] Pager [phone] signed by Lauro Jorgensen MD at 10/18/2017 [...] follow up. Lauro Jorgensen M.D. Director, Electrophysiology Beam Saw Operatorstructural manager [facility] [place] [address] Amarilis Castle MD - 10/17/2017 10:53 AM [...] hs. You should be cleared by your benefit authorizer prior to returning to driving. ? If [...] through the full body scanner at the [facility], but only after 6 weeks [...] How to Contact us: Cardiology Division Office [phone] Cardiology Patient Phone Line EDUIN [address] Dr[address] [...] 1) EP study with VT induction 2) EARLY LEARNING TEACHER-D Indication for the procedure: Ischemic cardiomyopathy with [...] MD Electrophysiology Fellow Division of Cardiovascular Medicine [facility] Pager [phone] ala Schofield PA-C - 10/16/2017 2:07 PM PST IP Cardiology Progress Note Date: 10/16/2017 Hospital Day: 6 Attending First Sampler: Khurram Bedoya MD Provider: LALA SCHOFIELD PA-C Primary Care Provider: Chato Matson MD Outpatient First Sampler: Dr Jamal Guerrero MD ID:Ron Mckeon is a 61 year old male with past medical history of CAD s/p anterior [place] 03/2017 with cardiogenic shock s/p PCI with ANY to LM/LAD and LCx with ECMO support, systo lic heart failure (EF 20-25%), ischemic cardiomyopathy, hypertension, Atrial flutter, prior tobacco use, recent JAVON thrombus on anticoagulation, Influenza A with septic shock (10/03) re quiring intubation and mechanical ventilation, HAP on treatment who was admitted in transfer from [facility] on 10/11 for consideration of PCI vs [...] cannot appreciate murmur and sounds regular. J ASSEMBLY INSPECTOR not above clavicle at 90 degrees [...] found for: FREET4, TSH, TPOAB, THYROGLOB, THYROGLOBAB, [id number] Lab Results Component Value Date A1C 5.9 [...] circumflex. One 3.0 x 18 mm Resolute Terrell drug-eluting stent. Successful percutaneous coronary transluminal angiopla [...] uenza and underwent a coronary angiogram at [facility] which revealed in stent re-stenosis of both LM into LAD and LCx stents, mild disease of RCA. Transferred to [facility] for further onel luation. CTS was [...] II-III, Stage C. Etiology ischemic. TTE at [facility] showed EF 30-35%, mildly reduced RV [...] check with EP -- f/u with outpatient benefit authorizer 2-4 weeks # Paroxysmal Aflutter Noted Aflutter with RVR at admission in [facility]; treated with amiodarone infusion. Now maintaining SR on oral amio. CHADS-VASC 3, HAS-BLED 3. Was previously on heparin infusion fo r NSTEMI but this has been stopped and AC was not started in anticipation of PCI. --rate control: carvedilol as above --rhythm control: continue amiodarone 200 mg daily for now, to be reassessed b y outpatient benefit authorizer --anticoagulation: holding warfarin for now given DAPT and h/o GIB. Discuss fu rther with outpatient benefit authorizer. May consider holding anticoagulation unless he demonstra janeth recurrent arrhythmia # Influenza type A - resolved # Community acquired pneumonia # Severe sepsis with shock, resolved Pt presented to [facility] 10/03 found to be Flu A positive [...] sepsis management , fluid resuscitation. EGD at [facility] on 10/05 showed gastritis, duodenitis, linear ulcerations [...] patient was interviewed and examined by attending benefit authorizer, Dr. Khurram Bedoya MD , who is in agreement with above described findings, assessment and plan. LALA SCHOFIELD PA-C Cardiovascular Medicine [facility] Pager [phone] I spent 36 minutes in coordination of care and muuc-tv-zyyp with the patient and/or their surrogate in [...] current post-cath car e. JOHN AMAYA MD [address] [place] [address] Ruth Ann Aguilar PA-C - [...] circ and LAD. EPS v-stim with possible EARLY LEARNING TEACHER-D tomorrow (QRS today is 152 atypical LB BB). See yesterdays attestation Sophie Darby MD Cardiovascular Medicine - Electrophysiology [facility] Cardi[facility] [place] at [facility] Arya Low MD - 10/15/2017 1:05 PM PSTCARDIOLOGY PRELIMINARY PROCEDURE NOTE Primary Care Provider: Chato Matson MD Referring Provider: Other Dictation Wildlife Forensic Geneticist Staff: Tejal Modi M.D. Procedure(s): 1. Coronary angiography 2. Percutaneous coronary intervention 3. Left heart catheterization 4. Impella placement and removal 5. Moderate conscious sedation Indications: Unstable angina, planned LM intervention Access: 14-[place] RFA 6-[place] RFV 7-[place] LFA Post Procedure Access:No evidence of significant [...] Note Date: 10/15/2017 Hospital Day: 5 Attending First Sampler: Khurram Bedoya MD Provider: LALA SCHOFIELD PA-C Primary Care Provider: Chato Matson MD Outpatient First Sampler: Dr Jamal Guerrero MD ID:Ron Mckeon is a 61 year old male with past medical history of CAD s/p anterior [place] 03/2017 with cardiogenic shock s/p PCI with ANY to LM/LAD and LCx with ECMO support, systo lic heart failure (EF 20-25%), ischemic cardiomyopathy, hypertension, Atrial flutter, prior tobacco use, recent JAVON thrombus on anticoagulation, Influenza A with septic shock (10/03) re quiring intubation and mechanical ventilation, HAP on treatment who was admitted in transfer from [facility] on 10/11 for consideration of PCI vs [...] cannot appreciate murmur and sounds regular. J ASSEMBLY INSPECTOR not above clavicle at 90 degrees [...] found for: FREET4, TSH, TPOAB, THYROGLOB, THYROGLOBAB, [id number] Lab Results Component Value Date A1C 5.9 [...] uenza and underwent a coronary angiogram at [facility] which revealed in stent re-stenosis of both LM into LAD and LCx stents, mild disease of RCA. Transferred to [facility] for further onel luation. CTS was consulted for consideration of CABG vs complex PCI. Due to nonviable myocardium archie wn on cardiac PET and resting NM perfusion study, he will proceed with PCI tomorrow with Imp tania support. -- to collaborating supervising physician today for PCI with impella support --ASA [...] II-III, Stage C. Etiology ischemic. TTE at [facility] showed EF 30-35%, mildly reduced RV [...] Noted Aflutter with RVR at admission in [facility]; treated with amiodarone infusion. Now maintaining SR [...] sepsis with shock, resolved Pt presented to [facility] 10/03 found to be Flu A positive [...] sepsis management , fluid resuscitation. EGD at [facility] on 10/05 showed gastritis, duodenitis, linear ulcerations [...] patient was interviewed and examined by attending benefit authorizer, Dr. Khurram Bedoya MD , who is in agreement with above described findings, assessment and plan. LALA SCHOFIELD PA-C Cardiovascular Medicine [facility] Pager [phone] I spent 38 minutes in coordination of care and kvqq-ne-nvoz with the patient and/or their surrogate in which the following was discussed: plan for PCI with impella support today, hea rt failure, anticoagulation for aflutter, discharge planning Associated attestation - Khurram Bedoya MD - 10/15/2017 1:15 PM PSTCardiology Attendi ng I have seen and examined Mr. Mckeon and discussed the patient's management with the [facility] practitioner. I reviewed the practitioner's note above and agree with the documented f indings and plan of care. KHURRAM BEDOYA MD Director of the [facility] Hypertrophic Cardiomyopathy Clerical Proofreader of Echocardiography Ad Compositoraviation safety equipment technician Division of Cardiovascular Medicine Ruth Ann Carvajal [...] about Vf/VT risk in both short and mcfp. Given NSVT and EF 30-35%, we will therefore proceed to an EP study with implantation o f an ICD if she has inducible VT. Given atypical LBBB QRS 147 and current functional status 3 (prior 1-2 by report) and concern for lack of EF recovery, we would plan for EARLY LEARNING TEACHER with His- bundle lead if needed. Sophie Darby MD Cardiovascular Medicine - Electrophysiology [facility] Cardi[facility] [place] at [facility] Lala Schofield PA-C - 10/14/2017 11:58 AM PSTFormatting of this note might be different f rom the original. IP Cardiology Progress Note Date: 10/14/2017 Hospital Day: 4 Attending First Sampler: Khurram Bedoya MD Provider: LALA SCHOFIELD PA-C Primary Care Provider: Chato Matson MD Outpatient First Sampler: Dr Jamal Guerrero MD ID:Ron Mckeon is a 61 year old male with past medical history of CAD s/p anterior [place] 03/2017 with cardiogenic shock s/p PCI with ANY to LM/LAD and LCx with ECMO support, systo lic heart failure (EF 20-25%), ischemic cardiomyopathy, hypertension, Atrial flutter, prior tobacco use, recent JAVON thrombus on anticoagulation, Influenza A with septic shock (10/03) re quiring intubation and mechanical ventilation, HAP on treatment who was admitted in transfer from [facility] on 10/11 for consideration of PCI vs [...] Very t hankful of care provided at [facility] Current Inpatient Medications: acetaminophen (TYLENOL) tablet [...] found for: FREET4, TSH, TPOAB, THYROGLOB, THYROGLOBAB, [id number] Lab Results Component Value Date A1C 5.9 [...] uenza and underwent a coronary angiogram at [facility] which revealed in stent re-stenosis of both LM into LAD and LCx stents, mild disease of RCA. Transferred to [facility] for further onel luation. CTS was [...] II-III, Stage C. Etiology ischemic. TTE at [facility] showed EF 30-35%, mildly reduced RV [...] Noted Aflutter with RVR at admission in [facility]; treated with amiodarone infusion. Now maintaining SR [...] sepsis with shock, resolved Pt presented to [facility] 10/03 found to be Flu A positive [...] sepsis management , fluid resuscitation. EGD at [facility] on 10/05 showed gastritis, duodenitis, linear ulcerations [...] patient was interviewed and examined by attending benefit authorizer, Dr. Khurram Bedoya MD , who is in agreement with above described findings, assessment and plan. LALA SCHOFIELD PA-C Cardiovascular Medicine [facility] Pager [phone] I spent 42 minutes in coordination of care and cgyv-kt-vnbu with the patient and/or their s urrogate in which the following was discussed: results of nuc med and PET scan studies indic ating no viable myocardium and thus will plan for complex PCI tomorrow Associated attestation - Khurram Bedoya MD - 10/14/2017 9:29 PM PSTCardiology Attendi libby I have seen and examined Mr. Mckeon and discussed the patient's management with the [facility] practitioner. I reviewed the practitioner's note above and agree with the documented f indings and plan of care. KHURRAM BEDOYA MD Director of the [facility] Hypertrophic Cardiomyopathy Clerical Proofreader of Echocardiography Ad Compositoraviation safety equipment technician Division of Cardiovascular Medicine Ashleigh Alvarez ACNP - 10/13/2017 8:33 AM PSTFormatting of this note might be diff erent from the original. Cardiology Inpatient Progress Note Date: 10/13/2017 Hospital Day: 3 Primary Care Physician: Chato Matson MD Outpatient First Sampler: Dr Jamal Guerrero MD Attending First Sampler: Khurram Bedoya MD Provider: KULWINDER Grace ID: [...] who was admitted in transfe r from [facility] on 10/11 for consideration of PCI vs [...] found for: FREET4, TSH, TPOAB, THYROGLOB, THYROGLOBAB, [id number] Lab Results Component Value Date A1C 5.9 [...] exam dated, 03/30/2017, the LVEF is similar. [facility] CXR 10/11/17: FINDINGS: The increased lung [...] flow to distal LAD 10/03/17 Echo at [facility] [place]: The number of aortic valve leaflets cannot [...] stents # NSTEMI Pt was admitted to [facility] 10/03 with hypoxemic respiratory failure, severe sepsis and s hock thought to be due to influenza type A as below. Noted to have new LBBB, NSTEMI with pea k trop 26. Underwent coronary angiogram at [facility] 10/04 which revealed in stent re-steno sis of both LM into LAD and LCx stents, mild disease of RCA. Transferred to [facility] for further evaluation. TTE showed LV [...] for PCI (likely with Dr Modi with [facility] a support) which would require repeat bolus [...] II-III, Stage C. Etiology ischemic. TTE at [facility] showed EF 30-35%, mildly reduced RV function, mild dilation of ascending aorta. LVEDP 14 mm hg during catheterization 10/04 ( in setting of hypotension). Pt was diuresed at [facility], appears euvolemic on exam. Pt wa s [...] Noted Aflutter with RVR at admission in [facility], treated with amiodarone infusion, bertha alonzo SR [...] admitted with acute dyspnea, respiratory failure to [facility] 10/03 found to be Flu A p [...] sepsis management , fluid resuscitation. EGD at [facility] on 10/05 showed gastritis, duodenitis, linear ulcerations [...] patient was interviewed and examined by attending benefit authorizer, Dr. Khurram Bedoya MD , who is in agreement with above described findings, assessment and plan. KULWINDER Grace Instructor of Medicine [facility] [place] Pager [phone] I spent 33 minutes in coordination of care and zlqh-jz-swtd with the patient and/or their s urrogate in which management of CAD, imaging plan and consultation with radiology, revascula rization treatment was discussed Associated attestation - Khurram Bedoya MD - 10/13/2017 2:48 PM PSTCardiology Attendi I have seen and examined Mr. Mckeon and discussed the patient's management with the [facility] practitioner. I reviewed the practitioner's note above and agree with the documented f indings and plan of care. KHURRAM BEDOYA MD Director of the [facility] Hypertrophic Cardiomyopathy Clerical Proofreader of Echocardiography Ad Compositoraviation safety equipment technician Division of Cardiovascular Medicine Ashleigh Alvarez ACNP - 10/12/2017 8:02 AM PSTFormatting of this note might be diff erent from the original. Cardiology Inpatient Progress Note Date: 10/12/2017 Hospital Day: 2 Primary Care Physician: Chato Matson MD Outpatient First Sampler: Dr Jamal Guerrero MD Attending First Sampler: Khurram Bedoya MD Provider: KULWINDER Grace ID: [...] who was admitted in transfe r from [facility] on 10/11 for consideration of PCI vs [...] found for: FREET4, TSH, TPOAB, THYROGLOB, THYROGLOBAB, [id number] Lab Results Component Value Date A1C 5.6 [...] exam dated, 03/30/2017, the LVEF is similar. [facility] CXR 10/11/17: FINDINGS: The increased lung [...] flow to distal LAD 10/03/17 Echo [place]: The number of aortic valve leaflets cannot [...] stents # NSTEMI Pt was admitted to [facility] 10/03 with hypoxemic respiratory failure, severe sepsis and s hock thought to be due to influenza type A as below. Noted to have new LBBB, NSTEMI with pea k trop 26. Underwent coronary angiogram at [facility] 10/04 which revealed in stent re-steno sis of both LM into LAD and LCx stents, mild disease of RCA. Transferred to [facility] for further evaluation. TTE shows LV [...] II-III, Stage C. Etiology ischemic. TTE at [facility] showed EF 30-35%, mildly reduced RV function, mild dilation of ascending aorta. LVEDP 14 mm hg during catheterization 10/04 ( in setting of hypotension). He was diuresed at [facility], appears euvolemic on exam today. Pt was [...] Aflutter with RVR prior to admission in [facility], treated with amioda rima infusion, maintaining SR [...] admitted with acute dyspnea, respiratory failure to [facility] 10/03 found to be Flu pos itive. [...] sepsis management , fluid resuscitation. EGD at [facility] on 10/05 showed gastritis, duodenitis, linear ulcerations [...] patient was interviewed and examined by attending benefit authorizer, Dr. Khurram Bedoya MD , who is in agreement with above described findings, assessment and plan. Ashleigh Alvarez, [facility] Instructor of Medicine [facility] Cardi[facility] [place] Pager [phone] I spent 51 minutes in coordination of care and ukbr-dq-aohh with the patient and/or their s urrogate in which management of CAD, imaging plan and consultation with radiology, pneumonia treatment was discussed Associated attestation - Khurram Bedoya MD - 10/12/2017 3:00 PM PSTCardiology Attendi I have seen and examined Mr. Mckeon and discussed the patient's management with the [facility] practitioner. I reviewed the practitioner's note above and agree with the documented f indings and plan of care. KHURRAM BEDOYA MD Director of the [facility] Hypertrophic Cardiomyopathy Clerical Proofreader of Echocardiography Ad Compositoraviation safety equipment technician Division of Cardiovascular Medicine Cristi Sutton - 10/11/2017 12:15 PM PSTTransthoracic echocardiogram completed. Final report to follow. documented in this enc ounter Plan of Treatment + +---------+--------+ + + | Name | Type | Priori | Associated Diagnoses | Order Schedule | | | | ty | | | + +---------+--------+ + + | SECURITY SHIFT SUPERVISOR INT | Imaging | Routin | | Tomorrow for 1 | | CORONARY ANGIOGRAM | | e | | Occurrences starting | | | | | | 10/15/2017 until | | | | | | 10/15/2017 | + +---------+--------+ + + | SECURITY SHIFT SUPERVISOR EP ICD | Imaging | Routin | [...] | POC | | PST | infarction) ([facility]) | results section. | + +--------+ + + + | CAPILLARY BLOOD | Routin | 10/17/2017 | Non-ST elevation | Results for this | | GLUCOSE (NO CHG), | e | 7:38 AM | (NSTEMI) myocardial | procedure are in the | | POC | | PST | infarction ([facility]) | results section. | + +--------+ + [...] | | | | PST | infarction) ([facility]) | results section. | + +--------+ + [...] | POC | | PST | infarction ([facility]) | results section. | + +--------+ + [...] | + +--------+ + + + | SECURITY SHIFT SUPERVISOR | Routin | 10/15/2017 | | Results [...] | POC | | PST | infarction ([facility]) | results section. | + +--------+ + [...] R[facility] | [address] | [place], [place] | | | RICARDO POINT OF CARE | [address] | [address] | | | TESTS | | | [...] MARQU[facility] | [address] | [place], [place] | | | CHRISTIE SILVA [facility] | [address] | [address] | | | TESTS | | | [...] Note | + + | Service Account, [employer] In Interface - 10/17/2017 7:51 AM PST [...] [facility] | [address] | [place] [address] | | | SERVICES, CORE | PARK [...] | + + + + + | [facility] [email or web address] | [address] | [place] [address] | | | SERVICES, ИРИНА | JT [...] At | + + + | STUDY: RI CHEST 1 VIEW HISTORY: Evaluated lead placement. | [facility] | | COMPARISON: STUDY: RI CHEST 1 VIEW FINDINGS: A new | [...] | Procedure Note | + + | oJyce Teixeira, Radiant Res In Interface - 10/17/2017 7:51 AM PST STUDY: RI CHEST 1 | | VIEWHISTORY: Evaluated lead placement.COMPARISON: STUDY: RI CHEST 1 VIEWFINDINGS: A | | new [...] He | | | is candidate for EARLY LEARNING TEACHER-D since he as class 2 baseline heart failure | | | and currently class 3 heart failure with LBBB 152 msec. | | | PROCEDURE ATTENDING: Sophie Darby MD | | | FELLOW: Amarilis Castle MD | | | PROCEDURAL DATA: Procedure: New implant Implanted | | | generator pressroom supervisor: Medtronic Implanted leads pressroom supervisor: | | | Medtronic Radha-procedure Anticoag: None Presenting rhythm: | | | NSR Existing device under advisory? No Pacemaker | | | dependent: No Method of sedation: Conscious sedation - Anesth | | | provider Response to sedation: Normal Fluoroscopy time (see | | | log): 45-47 minutes MEDICATIONS: See anesthesia log | | | and collaborating supervising physician log INTAKE AND OUTPUT: 1000 ml / [...] INFORMATION: BiV-ICD pulse generator: | | | Clinical Trial Assistant: Medtronic Model number: [id number] Serial | | | number: [id number] RA lead: Clinical Trial Assistant: [employer]tronic | | | Model number: [id number] Serial number: [id number] RV lead: | | | Clinical Trial Assistant: Medtronic Model number: [id number] Serial | | | number: [id number] CS lead: Clinical Trial Assistant: [employer]tronic | | | Model number: [id number] Serial number: [id number] MEASURED | | | PARAMETERS: RA lead: [...] Division of Cardiovascular Medicine | | | [facility] Pager [phone] Pursuant to | | | Federal Medicare requirements, I certify that I, Sophie Darby MD, | | | was present for the entire procedure, performed all critical | | | elements, and participated directly in the generation of this | | | report. Sophie Darby MD Cardiovascular Medicine - | | | Electrophysiology [facility] [place] at [facility] | | + + + PROCEDURE [...] See | | | anesthesia log and collaborating supervising physician log FLUIDS: In: 300 ml/ Out: 0 [...] HV interval (ms): 75 | | | RI interval (ms): 180 QRS duration (ms): 130 [...] Division | | | of Cardiovascular Medicine [facility] | | | Pager [phone] Pursuant to Federal Medicare requirements, I certify | | | that I, Sophie Darby MD, was present for the entire procedure, | | | performed all critical elements, and participated directly in the | | | generation of this report. Sophie Darby MD Cardiovascular | | | Medicine - Electrophysiology [facility] [place] at [facility] | | + + + VBG-FULL ABL, POC (10/16/2017 3:55 PM PST) + + + + + + | Component | Value | Ref Range | Performed | Pathologist | | | | | At | Signature | + + + + + + | PH VENOUS, | 7.32 (L) | 7.35 - 7.45 | [facility] - | | | POC | [...] | EULOGIO [facility] | [address] | [place], [place] | | | JULIANN SILVA OF [place] | [address] | [address] | | | TESTS | | | [...] R[facility] | [address] | [place], [place] | | | RICARDO POINT OF CARE | [address] | [address] | | | TESTS | | | [...] [facility] | [address] | [place] [address] | | | SERVICES, CORE | PARK [...] | + + + + + | [facility] | [address] | [place] [address] | | | ИРИНА ANTOINE | JT [...] [facility] | [address] | [place], [place] | | | JULIANN SILVA OF CARE | [address] | [address] | | | TESTS | | | [...] DEPT OF | [address] | [place], [place] | | | CARDIOLOGY | [address] | [address] | | + + + + + CARDIAC CATH (10/15/2017 2:11 PM PST) + + | Procedure Note | + + | Tejal Modi MD - 10/15/2017 2:11 PM PST DATE OF PROCEDURE:October 15, | | 2018PERFORMING PHYSICIAN:Tejal Modi [facility] ATTENDING:Mike Bray MDTheramy was no | | [...] 110 mL.FLUOROSCOPY TIME:17.8 minutes.FLUOROSCOPY | | DAP:7406.0 [id number]:1. Left ventricular pressure 91/23 mmHg.2. Aortic | | pressure 93/72 mmHg, mean of 80 mmHg. 3. Heart rate 71 beats per minute.ACCESS:1. | | 14-[place] Impella sheath in the right femoral artery.2. 7-[place] sheath in the left | | femoral artery.3. 6-[place] Islander sheath in the right femoral vein.ESTIMATED BLOOD [...] | micropuncture technique and ultrasound guidance, a 5-[place] Islander sheath was inserted in the | | right femoral artery and a 6-[place] Islander sheath was inserted in the right femoral vein. Two | | Perclose devices were deployed in the preclosure method and then the 5-[place] Islander sheath was | | exchanged over an Amplatz stiff wire for the 14-[place] Islander Impella sheath. A 5-[place] Islander | | angled pigtail catheter was then [...] technique and ultrasound guidance and placed a 7-[place] Islander sheath. A 7-[place] Islander XB 3.5 guide | | catheter was [...] and a 3.0 x 18 mm Resolute Terrell drug-eluting stent was advanced over the | [...] and pulled out of the body. The 14-[place] Islander sheath was | | then removed and [...] with one 3.0 x 18 mm Resolute Terrell drug-eluting stent. Successful | | percutaneous coronary [...] | | 10/15/2017 13:25:02DT: 10/15/2017 14:11:10Job #: [id number] | |2. Lesion type: C. | |3. [...] |BCN/MODL | | | | | | /[id number] | + + ACT, POC-CCL ONLY (10/15/2017 [...] [facility] | [address] | [place], [place] | | | JULIANN SILVA OF CARE | [address] | [address] | | | TESTS | | | [...] ANA MARIA | [address] | [place], [place] | | | JULIANN SILVA OF [place] | [facility] | [address] | | | TESTS | | | [...] R[facility] | [address] | [place], [place] | | | RICARDO POINT OF CARE | [address] | [address] | | | TESTS | | | | + + + + + SECURITY SHIFT SUPERVISOR EMERGENT/IMMEDIATE PROCEDURE (10/15/2017 11:00 AM PST) + + | Specimen | + + | | + + + + + | Narrative | Performed At | + + + | Procedure | | | performed in the Cardiac Wildlife Forensic Geneticist. See procedure notes for details. | | [...] [facility] | [address] | [place], [place] | | | RICARDO POINT OF CARE | [facility] | [address] | | | TESTS | | | [...] [facility] | [address] | [place] [address] | | | SERVICES, CORE | PARK [...] | + + + + + | [facility] | [address] | [place] [address] | | | SERVICES, CORE | PARK [...] | + + + + + | [facility] | [address] | [place] [address] | | | ИРИНА ANTOINE | JT [...] + + + | EULOGIO [facility] | [address] | [place], [place] | | | RICARDO POINT OF CARE | [address] | [address] | | | TESTS | | | [...] | + + + + + | [facility] | [address] [facility] | [place] [address] | | | SERVICES, CORE | PARK [...] [facility] | [address] | [place] [address] | | | ИРИНА ANTOINE | JT [...] [facility] | [address] | [place], [place] | | | JULIANN SILVA OF [facility] | [address] | [address] | | | TESTS | | | [...] IMPRESSION: No significant tracer uptake within the dhy-lr-cdarnn | | | anterior wall/interventricular septum and [...] significant tracer | | uptake within the pkq-wb-fvlbbt anterior wall/interventricular septum and apex | | corresponding to same non-perfused areas seen on myocardial rest perfusion scan, | | compatible with nonviable myocardium in these regions. I have personally reviewed the | | images and, if necessary, edited the report. I agree with the report as now presented. | |No significant tracer uptake within the rvi-hr-jtduiu anterior wall/interventricular septum and apex corresponding to [...] [facility] | [address] | [place], [place] | | | JULIANN SILVA OF CARE | [address] | [address] | | | TESTS | | | [...] R[facility] | [address] | [place], [place] | | | JULIANN SILVA OF CARE | [address] | [address] | | | TESTS | | | [...] [facility] | [address] | [place], [place] | | | JULIANN SILVA OF CARE | [address] | [address] | | | TESTS | | | [...] [facility] | [address] | [place], [place] | | | JULIANN SILVA OF CARE | [facility] | [address] | | | TESTS | | | [...] R[facility] | [address] | [place], [place] | | | JULIANN SILVA OF CARE | [address] | [address] | | | TESTS | | | [...] BLUAM | [address] | [place], [place] | | | RICARDO POINT OF CARE | [address] | [address] | | | TESTS | | | [...] [facility] | [address] | [place], [place] | | | JULIANN SILVA OF CARE | [address] | [address] | | | TESTS | | | [...] R[facility] | [address] | [place], [place] | | | JULIANN SILVA OF CARE | [address] | [address] | | | TESTS | | | [...] BLUAM | [address] | [place], [place] | | | JULIANN SILVA OF CARE | [address] | [address] | | | TESTS | | | [...] - [facility] | [address] | [place], [place] | | | JULIANN SILVA OF CARE | [address] | [address] | | | TESTS | | | [...] R[facility]GERS | [address] | [place], [place] | | | JULIANN SILVA OF [facility] | [address] | [address] | | | TESTS | | | | + + + + + NM MYOCARDIAL PERFUSION (SPECT) SINGLE AT REST OR STRESS (10/13/2017 11:18 AM PST) + + | Specimen | + + | | + + + + + | Narrative | Performed At | + + + | EXAM: Regadenoson Sestamibi SPECT Myocardial Perfusion Study | [facility] | | 10/13/17 09:54:20 HISTORY: Myocardial [...] [facility] | [address] | [place], [place] | | | RICARDO POINT OF CARE | [address] | [address] | | | TESTS | | | [...] [facility] | [address] | [place] [address] | | | SERVICES, CORE | PARK [...] | + + + + + | [facility] | [address] | [place] [address] | | | ИРИНА ANTOINE | JT [...] (H) | 70 - 99 mg/dL | [facility] - | | | GLUCOSE, | [...] R[facility] | [address] | [place], [place] | | | JULIANN SILVA OF CARE | [address] | [address] | | | TESTS | | | [...] | + + + + + | [facility] | [address] [facility] | [place] [address] | | | SERVICES, CORE | JT [...] R[facility] | [address] | [place], [place] | | | JULIANN SILVA OF [place] | [facility] | [address] | | | TESTS | | | | + + + + + MR CARDIAC COMPREHENSIVE W/O CONTRAST (10/12/2017 12:38 PM PST) + + | Specimen | + + | | + + + + + | Narrative | Performed At | + + + | Report ====== Oracle Technical Developer: Rodríguez Fortune ([id number])shubham | E[facility]OGIO | | richy Centrifugal Machine Tender: shubham lockhart Fellow: shubham lockhart | RADIOLOGY | | Phone Triage Specialist: shubham lockhart Viewer: shubham lockhart Report Date: | CARDIAC IMAGING | | Oct 2017, 09:22:25 PST Patient ------- Patient: RON MCKEON | | | Acc #: [id number] | | | Ethnicity: N Status: Final [...] | | | Image Quality: Good Scanner Clinical Trial Assistant: UpdateLogic Scanner | | | Model: WageWorks Scanner Serial Number: [id number] Scanner Software | | | Platform: 5.3.15.3.1.0 Staff: Rodríguez Fortune Modality: MR | | | Indication Name: routine Protocol Name: CMR W Flows WO Contrast | | | Findings -------- Non-cardiac findings were reviewed by Dr. Curtis. | | | This exam was terminated prematurely and is lmiited to billet sawyer images. | | | There are bilateral [...] - 10/16/2017 9:22 AM PST | | Report======Oracle Technical Developer: Rodríguez Fortune ([id number]), shubham Rodriguezalyst: shubham | | Lorena: shubham Garciaechnician: shubham Beckwithwer: shubham | | Rosey Date: 16 Oct 2017, 09:22:25 PSTPatient-------Patient: RON MCKEON | | JMedical Record Number: [id number] ID: [id number] #: [id number]: NStatus: | | Final ReportReport Number: [id number]: MaleBirthdate: 1955 (61 yrs)Study Date: 05 | | Oct 2017Study Description: CMR with Flows with ContrastReferring Physician: KHURRAM | | ANASTACIAITSAULOBlood Pressure: /Heart rate:Height (cm): 0Weight (kg): 89BMI (kg/m ): 0BSA | | (m ): 0 (Mosteller Formula)Image Quality: Jazmincansaulo Clinical Trial Assistant: [employer]Share | | Caralon GlobalScanner Model: [employer] Serial Number: [id number] Software Platform: | | 5.3.15.3.1.0Staff: Rodríguez FortuneModality: MRIndication Name: routineProtocol Name: | | CMR W Flows WO ContrastFindings--------Non-cardiac findings were reviewed by | | Ever.This exam was terminated prematurely and is lmiited to billet sawyer images.There are | | bilateral pleural effusions. [...] Formula) | |Image Quality: Good | |Scanner Clinical Trial Assistant: UpdateLogic | |Scanner Model: W[employer] | |Scanner Serial Number: [id number] | |Scanner Software Platform: 5.3.15.3.1.0 | |Staff: Rodríguez Fortune | |Modality: MR | |Indication Name: routine | |Protocol Name: CMR W Flows WO Contrast | |Findings | |-------- | |Non-cardiac findings were reviewed by Dr. Curtis. | |This exam was terminated prematurely and is lmiited to billet sawyer images. | |There are bilateral pleural effusions. [...] MARIA | [address] | [place], [place] | | | JULIANN SILVA OF CARE | [address] | [address] | | | TESTS | | | [...] LABORATORY | [address] | [place] [address] | | | SERVICES, CORE | JT [...] [facility] | [address] | [place] [address] | | | ИРИНА ANTOINE | JT [...] | + + + + + | [facility] | [address] [facility] | [place] [address] | | | ARASH, ИРИНА | JT [...] EULOGIO CALABRESE | [address] | [place] [address] | | | SERVICES, ИРИНА | JT [...] [facility] | [address] | [place], [place] | | | RICARDO POINT OF CARE | [address] | [address] | | | TESTS | | | [...] EULOGIO [facility] | [address] | [place], [place] | | | RICARDO CHAZY OF [facility] | [address] | [address] | | | TESTS | | | | + + + + + CULTURE, SPUTUM (10/11/2017 5:45 PM PST) + + | Specimen | + + | Sputum | + + + + + | Narrative | Performed At | + + + | Culture Report: This culture has been discontinued. Gram | [facility] - | | Stain: Squamous epithelial cells in the specimen indicate the | AIRPORT - | | presence of significant oropharyngeal contamination. CRITICAL | [place] | | RESULTS Results called to and verified by: Vicki Reyes at phone # | | | E[facility]OGIO on: 10/12/2017 8:10:02 AM PST by: [id number] | | + + + + + + + + | Performing | Address | City/State/Zipcode | Phone Number | | Organization | | | | + + + + + | [facility] - | [address] | [place] [address] | | | [place] | | | | + + + [...] | + + + + + | [facility] | [address] | [place] [address] | | | ИРИНА ANTOINE | JT [...] [facility] | [address] | [place] [address] | | | SERVICES, CORE | PARK [...] [facility] | [address] | [place] [address] | | | SERVICES, ИРИНА | JT [...] | [facility] | | considered for monitoring reports analysis manager glycemic control in patients with: | LABORATORY [...] | fructosamine should be considered for monitoring mcfp glycemic | | | control in patients [...] | + + + + + | [facility] | [address] [facility] | [place] [address] | | | SERVICES, SPECIAL | JT [...] + + | [facility] | [facility] DEPT OF | | [facility] Adult Echocardiography | CARDIOLOGY | | Laboratory [address] [place] [address], | | | [place] [address] Pt Name: | | | RON MCKEON Study Date/Time 10/11/2017 / 11:47:35 | | | AMMRN: [id number] Most recent | | | prior: 03/30/2017Acc #: [id number] No. | | | previous echos: 4DOB: 1955 61 years Heart | | | Rate: 84 bpmHeight: 69.0 in | | | Blood Pressure: 115/68 mm/HgWeight: 196.0 | | | lb Gender: | | | MBSA: 2.05 m2 Order | | | ID: [id number] Retail Link Analyst: Shahab Sutton [facility] | | | Referring Provider: Kimmy [...] | | | presents on transfer from [place] for consideration of complex PCI | | [...] | | Ao (prox) 3.70 cm 18.1 mm/o3Xdpkstdwkg of | | | chamber size and geometry is accomplished through the incorporation of | | | linear, volumetric, and indexed values Wall Scoring: Report | | | electronically signed by: [id number] Khurram Bedoya MD (10/11/2017, | | | 12:59:49 PM) Final (Updated) | | | Final (Updated) | | + + + + + | Procedure Note | + + | Interface, Cardiology Results - 10/11/2017 1:00 PM [facility] | | [facility] Echocardiography Laboratory [address] [place] [address] | | [place], [place] [address] Pt Name: RON Chaudhary | | MIKE Study Date/Time 10/11/2017 / 11:47:35 AMMRN: [id number] Most | | recent prior: 03/30/2017Acc #: [id number] No. previous echos: 4DOB: | | 1955 61 years Heart Rate: 84 bpmHeight: 69.0 in Blood | | Pressure: 115/68 mm/HgWeight: 196.0 lb Gender: MBSA: | | 2.05 m2 Order ID: [id number] Retail Link Analyst: Shahab Sutton RDReferring | | Provider: Kimmy [...] use disorder who presents on transfer from [place] | | for consideration of complex PCI [...] Ao (prox) | | 3.70 cm 18.1 mm/i1Emkgisysrz of chamber size and geometry is accomplished | | through the incorporation of linear, volumetric, and indexed values Wall Scoring: Report | | electronically signed by: [id number] Khurram Bedoya MD (10/11/2017, 12:59:49 PM) | [...] | | | |Report electronically signed by: [id number] Khurram Bedoya MD (10/11/2017, 12:59:49 | |PM) | | | | | | | | Final (Updated) | + + + + + + + | Performing | Address | City/State/Zipcode | Phone Number | | Organization | | | | + + + + + | [facility] | [address] | [place], [place] | | | CARDIOLOGY | [address] | [address] | | + + + + + X-RAY PORTABLE CHEST 1 VIEW (10/11/2017 11:24 AM PST) + + | Specimen | + + | | + + + + + | Narrative | Performed At | + + + | STUDY: RI CHEST 1 VIEW COMPARISON: 03/21/17. HISTORY: Cough. [...] Note | + + | Service Account, [employer] Res In Interface - 10/11/2017 1:51 PM PST STUDY: RI CHEST 1 | | VIEW COMPARISON: 03/21/17.HISTORY: [...] [facility] | [address] | [place] [address] | | | SERVICES, CORE | PARK [...] | + + + + + | [facility] | [address] | [place] [address] | | | ИРИНА ANTOINE | JT [...] | + + + + + | [facility] [email or web address] | [address] | [place] [address] | | | SERVICES, ИРИНА | JT [...] [facility] | [address] | [place] [address] | | | SERVICES, CORE | PARK [...] [facility] | [address] | [place] [address] | | | ИРИНА ANTOINE | JT [...] | + + + + + | [facility] | [address] [facility] | [place] [address] | | | SERVICES, CORE | PARK [...] [facility] | [address] | [place] [address] | | | SERVICES, CORE | JT [...] DEPT OF | [address] | [place], [place] | | | CARDIOLOGY | [address] | [address] | | + + + + + [...] + + | Coronary artery disease involving [place] coronary artery of [place] heart, angina | | presence unspecified | [...] of unspecified type of vessel, | | [place] or graft | + + | Paroxysmal atrial flutter (HCC) Atrial flutter | + + | Chronic systolic congestive heart failure (HCC) Chronic systolic heart failure | + + | Encounter for insertion of cardiac resynchronization therapy defibrillator (EARLY LEARNING TEACHER-D) | + + | Influenza, pneumonia Influenza [...] PST | | | | | Until [facility] 10/15/17 at 1220 | | | [...]
--- OUTSIDE RECORDS SUMMARY | ~2019-01-22 | XMS | Encounter Summary ---
Demographics + + + | Address | [address] | | | [place] [address] | + + + | Home Phone [...] | | | | | [place] [address] | | + + + + + Care Team Providers + +------+ + | Care Industrial Therapist Name | Role | Phone | [...] | 2018 | Encounter | Services at [facility] | | | | | | [address] [facility] | | | | | | [facility] | | | | | | Mailcode: L340 | | | | | | [facility] | | | | | | [place], [place] | | | | | | [address] | | | | | | [phone] | | | +--------+ + + + [...] | + + + | Report ====== Finishing Inspector: Rodríguez Fortune ([id number]), shubham | [facility] | | richy Playground Director: shubham lockhart Fellow: shubham lockhart | RADIOLOGY | | Affiliate Manager: shubham lockhart Viewer: shubham lockhart Report Date: | CARDIAC IMAGING | | Oct 2017, 09:22:25 PST Patient ------- Patient: RON MCKEON | | | Acc #: [id number] | | | Ethnicity: N Status: Final [...] | | Image Quality: Good Scanner Hand Striper: Apartment Adda Scanner | | | Model: TE2 Scanner Serial Number: [id number] Scanner Software | | | Platform: 5.3.15.3.1.0 Staff: Rodríguez Fortune Modality: MR | | | Indication Name: routine Protocol Name: CMR W Flows WO Contrast | | | Findings -------- Non-cardiac findings were reviewed by Dr. Curtis. | | | This exam was terminated prematurely and is lmiited to mail processing equipment mechanic images. | | | There are bilateral [...] - 10/16/2017 9:22 AM PST | | Report======Finishing Inspector: Rodríguez Fortune ([id number]), shubham Rodriguezalyst: shubham | | Zackeryow: shubham Beckician: shubham Beckwithwer: shubham | | Judiort Date: 16 Oct 2017, 09:22:25 PSTPatient-------Patient: RON MCKEON | | JMedical Record Number: [id number] ID: [id number] #: [id number]: NStatus: | | Final ReportReport Number: [id number]: MaleBirthdate: 1955 (61 yrs)Study Date: 05 | | Oct 2017Study Description: CMR with Flows with ContrastReferring Physician: RAJIV | | HEITNERBlood Pressure: /Heart rate:Height (cm): 0Weight (kg): 89BMI (kg/m ): 0BSA | | (m ): 0 (Mosteller Formula)Image Quality: Cyphoma Hand Striper: Core Solutions | | Aniika Model: Band Metrics Serial Number: [id number] Software Platform: | | 5.3.15.3.1.0Staff: Rodríguez FortuneModality: MRIndication Name: routineProtocol Name: | | CMR W Flows WO ContrastFindings--------Non-cardiac findings were reviewed by | | Ever.This exam was terminated prematurely and is lmiited to mail processing equipment mechanic images.There are | | bilateral pleural effusions. [...] | |Image Quality: Good | |Scanner Hand Striper: Apartment Adda | |Scanner Model: TE2 | |Scanner Serial Number: [id number] | |Scanner Software Platform: 5.3.15.3.1.0 | |Staff: Rodríguez Fortune | |Modality: MR | |Indication Name: routine | |Protocol Name: CMR W Flows WO Contrast | |Findings | |-------- | |Non-cardiac findings were reviewed by Dr. Curtis. | |This exam was terminated prematurely and is lmiited to mail processing equipment mechanic images. | |There are bilateral pleural effusions. [...]
--- OUTSIDE RECORDS SUMMARY | ~2019-01-22 | XMS | Encounter Summary ---
Demographics + + + | Address | [address] | | | [place] [address] | + + + | Home Phone | | + + + | Preferred Language | Unknown | + + + | Marital Status | | + + + | Hindu Affiliation | NRP | + + + | Race | White | + + + | Ethnic Group | Not or | + + + Author + + + | Author | [facility] | + + + | Organization | [facility] | + + + | Address | Unknown | + + + | Phone | Unavailable | + + + Support + + + + + | Name | Relationship | Address | Phone | + + + + + | Venice Will | ECON | [address] | | | | | [place] [address] | | + + + + + Care Team Providers + +------+ + | Care Ocean Export Account Manager Name | Role | Phone [...] | | 2011 | anned | [address] [facility] | | | | | | [facility] | | | | | | [place], [place] | | | | | | [address] | | | +--------+ + + + [...]
--- OUTSIDE RECORDS SUMMARY | ~2019-01-22 | XMS | Encounter Summary ---
Demographics + + + | Address | [address] | | | [place] [address] | + + + | Home Phone [...] | [place] | | | | | [address] | | + + + + + Care Team Providers + +------+ + | Care Media Marketing Coordinator Name | Role | Phone | [...] | | | involving | [address] | [place] | | | | | [place] | MARK[place] MCGUIRE | MARKO Herrera | | | | | coronary | [address] | [address] | | | | | artery of | Phone: | Phone: | | | | | [place] heart | [phone] | [phone] | | | | | without | Fax: | Fax: | | | | | angina | [phone] | [phone] | | | | | pectoris | | | + + + + + + + Encounter Details +--------+---------+ + + + | Date | Type | Department | Care Team | Description | +--------+---------+ + + + | 12/07/ | Office | [facility] | Randy Figueroa, | Coronary artery | | 2019 | Visit | MED CTR CARDIAC | MD [address] | disease involving | | | | REHABILITATION [address] | [facility], | [place] coronary | | | | [place] | [place] [address] | artery of [place] | | | | [place] [address] | [phone] | heart without angina | | | | [phone] | | pectoris (Primary | | | [...] [facility] CARDIAC REHABILITATION [address] [facility] [address] Cardiac Rehab Date: 12/07/2018 Patient Information Patient Name: Bob Will Date of : 1955 Age: 63 y.o. Encounter Diagnoses Code Name Primary? I25.10 Coronary artery disease involving [place] coronary artery of [place] heart without angina pectoris Yes Z98.61 Post [...] W | | | | | | [place], | | | | | | [place] [address] | | | | | | [phone] | | | | | | | | +--------+ + + + + documented as of this encounter Visit Diagnoses + + | Diagnosis | + + | Coronary artery disease involving [place] coronary artery of [place] heart without | | angina pectoris - Primary | + + | Post PTCA Postsurgical percutaneous transluminal coronary angioplasty status | + + documented in this encounter"
--- OUTSIDE RECORDS SUMMARY | ~2019-01-22 | XMS | Encounter Summary ---
Demographics + + + | Address | [address] | | | [place] [address] | + + + | Home Phone [...] [place] | | | | | [address] | | + + + + + Care Team Providers + +------+ + | Care Grinding Wheel Inspector Name | Role | Phone | [...] | Telephone | [facility] [place] | [place], | Medication Related | | 2018 | | CARDIOLOGY [address] | ADARSH Santo [address] | | | | | [place], | [place], | | | | | [place] [address] | [place] [address] | | | | | [phone] | [phone] | | | | | | | [...] W | | | | | | [place], | | | | | | [place] [address] | | | | | | [phone] | | | | | | | [...] | starting 11/30/2018 | | | | [place] coronary | until 12/01/2019 | | | | artery of [place] | | | | | heart without angina | | | | | pectoris | | + +--------+ + + documented as of this encounter Visit Diagnoses + + | Diagnosis | + + | Coronary artery disease involving [place] coronary artery of [place] heart without | | angina pectoris - Primary | + + documented in this encounter"
--- OUTSIDE RECORDS SUMMARY | ~2019-01-22 | XMS | Encounter Summary ---
Demographics + + + | Address | [address] | | | [place] [address] | + + + | Home Phone [...] | [place] | | | | | [address] | | + + + + + Care Team Providers + +------+ + | Care Middle Card Tender Name | Role | Phone | [...] | | | involving | [address] | [place] | | | | | [place] | MARKO MCGUIRE | MARKO Herrera | | | | | coronary | [address] | [address] | | | | | artery of | Phone: | Phone: | | | | | [place] heart | [phone] | [phone] | | | | | without | Fax: | Fax: | | | | | angina | [phone] | [phone] | | | | | pectoris | | | + + + + + + + Encounter Details +--------+---------+ + + + | Date | Type | Department | Care Team | Description | +--------+---------+ + + + | 11/25/ | Office | [facility] | Carolina Randy, | Coronary artery | | 2019 | Visit | MED CTR CARDIAC | MD [address] | disease involving | | | | REHABILITATION [address] | [facility], | [place] coronary | | | | [address] [place] | [place] [address] | artery of [place] | | | | [place] [address] | [phone] | heart without angina | | | | [phone] | | pectoris (Primary | | | [...] of this encounter Progress Jonah Coker-Cheri Kendrick, CERTIFIED RESIDENTIAL MEDICATION AIDE - 11/25/2018 1000 PDTFormatting of this note might be diff erent from the original. [facility] CARDIAC REHABILITATION [address] [facility] [address] Cardiac Rehab Date: 11/25/2018 Patient Information Patient [...] W | | | | | | [place], | | | | | | [place] [address] | | | | | | [phone] | | | | | | | | +--------+ + + + + documented as of this encounter Visit Diagnoses + + | Diagnosis | + + | Coronary artery disease involving [place] coronary artery of [place] heart without | | angina pectoris - Primary | + + | Post PTCA Postsurgical percutaneous transluminal coronary angioplasty status | + + documented in this encounter"
--- OUTSIDE RECORDS SUMMARY | ~2019-01-22 | XMS | Encounter Summary ---
Demographics + + + | Address | [address] | | | [place] [address] | + + + | Home Phone [...] | | | | | [place] [address] | | + + + + + Care Team Providers + +------+ + | Care Project Construction Manager Name | Role | Phone | [...] | | 2018 | | Services at [facility] | [place], [place] | Exam | | | | [address] [facility] | [address] | | | | | [facility] | | | | | | Mailcode: L340 | | | | | | [facility] | | | | | | [place], [place] | | | | | | [address] | | | | | | [phone] | | | +--------+ + + + [...]
--- OUTSIDE RECORDS SUMMARY | ~2019-01-22 | XMS | Encounter Summary ---
Demographics + + + | Address | [address] | | | [place] [address] | + + + | Home Phone [...] | | | | | [place] [address] | | + + + + + Care Team Providers + +------+ + | Care Neon Tube Pumper Name | Role | Phone | + +------+ + | Chato Matson MD | PCP | | + +------+ + Encounter Details +--------+ + + + + | Date | Type | Department | Care Team | Description | +--------+ + + + + | 03/31/ | Document-Sc | Health Information | Other, Faculty | | | 2017 | anned | Services [address] | [phone] | | | | | [address] | | | | | | Road Mailcode: | | | | | | [address] [place] [address] | | | | | | [facility] | | | | | | [place], [place] | | | | | | [address] | | | | | | [phone] | | | +--------+ + + + [...]
--- OUTSIDE RECORDS SUMMARY | ~2019-01-22 | XMS | Encounter Summary ---
Demographics + + + | Address | [address] | | | [place] [address] | + + + | Home Phone | | + + + | Preferred Language | Unknown | + + + | Marital Status | | + + + | Evangelical Affiliation | NRP | + + + | Race | White | + + + | Ethnic Group | Not or | + + + Author + + + | Author | [facility] | + + + | Organization | [facility] | + + + | Address | Unknown | + + + | Phone | Unavailable | + + + Support + + + + + | Name | Relationship | Address | Phone | + + + + + | Venice Will | ECON | [address] | | | | | [place] [address] | | + + + + + Care Team Providers + +------+ + | Care Loss Prevention Operations Manager Name | Role | Phone [...] | | 2017 | anned | Services [address] | [phone] | | | | | [address] | | | | | | Road Mailcode: | | | | | | [address] [place] [address] | | | | | | [facility] | | | | | | [place], [place] | | | | | | [address] | | | | | | [phone] | | | +--------+ + + + [...]
--- OUTSIDE RECORDS SUMMARY | ~2019-01-22 | XMS | Encounter Summary ---
Demographics + + + | Address | [address] | | | [place] [address] | + + + | Home Phone [...] | [place] | | | | | [address] | | + + + + + Care Team Providers + +------+ + | Care Electronic System Engineer Name | Role | Phone | [...] | | | involving | [address] | [place] | | | | | [place] | [place], [place] | [place], [place] | | | | | coronary | [address] | [address] | | | | | artery of | Phone: | Phone: | | | | | [place] heart | [phone] | [phone] | | | | | without | Fax: | Fax: | | | | | angina | [phone] | [phone] | | | | | pectoris | | | + + + + + + + Encounter Details +--------+---------+ + + + | Date | Type | Department | Care Team | Description | +--------+---------+ + + + | 11/18/ | Office | [facility] | Randy Figueroa, | Coronary artery | | 2019 | Visit | MED CTR CARDIAC | [address] | disease involving | | | | REHABILITATION [address] | [place], | [place] coronary | | | | [address] [place] | [place] [address] | artery of [place] | | | | [place] [address] | [phone] | heart without angina | | | | [phone] | | pectoris (Primary | | | [...] might be different from the orig inayocasta. [facility] CARDIAC REHABILITATION [address] [facility] [address] Cardiac Rehab Date: 11/18/2018 Patient Information Patient Name: Bob Will Date of : 1955 Age: 63 y.o. Encounter Diagnoses Code Name Primary? I25.10 Coronary artery disease involving [place] coronary artery of [place] heart without angina pectoris Yes Z98.61 Post [...] | | | | | | [place] [address] | | | | | | [phone] | | | | | | | | +--------+ + + + + documented as of this encounter Visit Diagnoses + + | Diagnosis | + + | Coronary artery disease involving [place] coronary artery of [place] heart without | | angina pectoris - Primary | + + | Post PTCA Postsurgical percutaneous transluminal coronary angioplasty status | + + documented in this encounter"
--- OUTSIDE RECORDS SUMMARY | ~2019-01-22 | XMS | Encounter Summary ---
Demographics + + + | Address | [address] | | | [place] [address] | + + + | Home Phone [...] | [place] | | | | | [address] | | + + + + + Care Team Providers + +------+ + | Care City Planning Aide Name | Role | Phone | [...] | | | involving | [address] | [place] | | | | | [place] | [place] MCGUIRE | [place]rera | | | | | coronary | [address] | [address] | | | | | artery of | Phone: | Phone: | | | | | [place] heart | [phone] | [phone] | | | | | without | Fax: | Fax: | | | | | angina | [phone] | [phone] | | | | | pectoris | | | + + + + + + + Encounter Details +--------+---------+ + + + | Date | Type | Department | Care Team | Description | +--------+---------+ + + + | 11/30/ | Office | [facility] | Carolina Randy, | Coronary artery | | 2019 | Visit | MED CTR CARDIAC | MD [address] | disease involving | | | | REHABILITATION [address] | [place], | [place] coronary | | | | [address] [place] | [place] [address] | artery of [place] | | | | [place] [address] | [phone] | heart without angina | | | | [phone] | | pectoris (Primary | | | [...] [facility] CARDIAC REHABILITATION [address] [facility] [address] Cardiac Rehab Date: 11/30/2018 Patient Information Patient Name: Bob Will Date of : 1955 Age: 63 y.o. Encounter Diagnoses Code Name Primary? I25.10 Coronary artery disease involving [place] coronary artery of [place] heart without angina pectoris Yes Z98.61 Post [...] W | | | | | | [place], | | | | | | [place] [address] | | | | | | [phone] | | | | | | | | +--------+ + + + + documented as of this encounter Visit Diagnoses + + | Diagnosis | + + | Coronary artery disease involving [place] coronary artery of [place] heart without | | angina pectoris - Primary | + + | Post PTCA Postsurgical percutaneous transluminal coronary angioplasty status | + + documented in this encounter"
--- OUTSIDE RECORDS SUMMARY | ~2019-01-22 | XMS | Clinical Summary ---
Demographics + + + | Address | [address] | | | [place] [address] | + + + | Home Phone [...] [place] | | | | | [address] | | + + + + + Care Team Providers + +------+ + | Care Blade Sharpener Name | Role | Phone | + +------+ + | Veuns Lainez MD | PP | | + [...] | | Activ | | (VITAMIN D-3) [id number] | a week. | | | | [...] | | nasal spray | nasal spray [place] 2 | | | | | | [...] e | | spray | aerosol spray [place] | | | | | | | [...] | 11/12/2017 | + + + | LENS BLANK GAUGER-D (AICD) Medtronic 10/16/17 EULOGIO Darby | 10/19/2017 | + + + + + | Overview: Formatting of this note might be different from the | | original. MODEL NAME MODEL# SERIAL# DATE IMPLANTED GENERATOR | | Medtronic [id number] 10/16/17 RV LEAD Medtronic [id number] 62 | | [id number] 10/16/17 A LEAD Medtronic [id number] 10/16/17 | | Coronary Sinus LEAD Medtronic [id number] 88 [id number] 10/16/17 | | Indication: ischemic cardiomyopathy with reduced EF 30-35% Last | | Assessment & Plan: Medtronic AICD Placed in 10/2017 at [facility]. | | A:-Patient ventricular paced 100% this morning. No arrhythmias on | | telemetry.P:-No acute therapy. Continue current therapy. | | | | Last Assessment & Plan: Medtronic AICD Placed in 10/2017 at [facility]. | | | |A: | |-Patient [...] + + + | Overview: S/P Medtronic LENS BLANK GAUGER-D 10-16-17 Dr Darby, [facility] Scan | | 10/13/17 shows No [...] + | Coronary artery disease involving [place] coronary artery of | 04/06/2017 | | [place] heart without angina pectoris | | + [...] + + + | Acute anterior wall PA | 04/03/2017 | + + + + [...] involving | | | | | | [place] coronary | | | | | | artery of [place] | | | | | | heart without angina | | | | | | pectoris (Primary | | | | | | Dx); Post PTCA | +--------+ + + + + | 12/07/ | Office | | Randy Figueroa, | Coronary artery | | 2018 | Visit | | MD | disease involving | | | | | | [place] coronary | | | | | | artery of [place] | | | | | | heart [...] | | | | | (Primary Dx); LENS BLANK GAUGER-D | | | | | | (AICD) Medtronic | | | | | | 10/16/17 [facility] Wilner; | | | | | | Ischemic | | | | | | cardiomyopathy | +--------+ + + + + | 12/02/ | Office | | Randy Figueroa, | Coronary artery | | 2018 | Visit | | MD | disease involving | | | | | | [place] coronary | | | | | | artery of [place] | | | | | | heart [...] involving | | | | | | [place] coronary | | | | | | artery of [place] | | | | | | heart [...] involving | | | | | | [place] coronary | | | | | | artery of [place] | | | | | | heart [...] involving | | | | | | [place] coronary | | | | | | artery of [place] | | | | | | heart [...] involving | | | | | | [place] coronary | | | | | | artery of [place] | | | | | | heart [...] whether | | | | | | [place] or | | | | | | [...] W | | | | | | [place], | | | | | | [place] [address] | | | | | | [phone] | | | | | | | [...] 6f - | Generi | Left: | Magnomatics LORIN | [id number] | 12/05/ | [id number] | | [id number]: Qty: 1 | c | Groin | - TERU | [id number] | 2018 | / | | on 05/19/2018 by Missael, | | | | 20 | | /[id number] | | Khurram Isabel MD | | | | | | 371 | + +--------+--------+ +--------+--------+--------+ | Refrigeration Plant Operator-D MedtronicImplanted: | Implan | | MEDTRONIC [...] N/A: | ISAACS | | 12/29/ | [id number] | | Eluting Coronary Stent System | | [place] | DIAGNOSTICS | | 2020 | 0-18 / | | Implanted: Qty: 1 on | | ry | - DAINA | | | | | 03/15/2017 by Monse Ross, | | | | | | /[id number] | | | | | | | | 61 | + +--------+--------+ +--------+--------+--------+ | Xience Alpine Everolimus | Stent | N/A: | ISAACS | | 11/03/ | [id number] | | Eluting Coronary Stent System | | [place] | DIAGNOSTICS | | 2020 | 0-23 / | | Implanted: Qty: 1 on | | ry | - DAINA | | | | | 03/15/2017 by Monse Ross, | | | | | | /[id number] | | MD | | | | | | 41 | + +--------+--------+ +--------+--------+--------+ | Kit Perclose Proglide 6fr - | | Right: | ISAACS | [id number] | | 93020- | | [id number]: Qty: 1 | | Groin | VASCULAR - | [id number] | | 03 / | | on 05/19/2018 by Missael, | | | ABVA | 89 | | | | Khurram Isabel MD | | | | | | | + +--------+--------+ +--------+--------+--------+ | Kit Perclose Proglide 6fr - | | Right: | ISAACS | [id number] | | 03146- | | [id number]: Qty: 1 | | Groin | VASCULAR - | [id number] | | 03 / / | | [...] | e | 23:59 PDT | Interrogation LENS BLANK GAUGER-D | procedure are in the | | [...] remote PDF scanned into | | | [facility] for remote interrogation results. [...] | [employer] | MODA | [id number] | | [phone] | | Medica | | MEDICAID HMO | HEALTH | | 018-Pr | 1 | | id | | | MDCD | | esent | | | | | | [place] | | | | | | + +--------+ +--------+ +---------+--------+ | [employer]MIN | VETERA | [id number] | 07/24/ | | | Indemn | | | NS | | 2016-P | | | ity | | | ADMIN | | resent | | | | | | [place] | | | | | | | | [place] | | | | | | + +--------+ +--------+ +---------+--------+ | [employer]MIN | VETERA | [id number] | 07/24/ | | | Indemn | [...] taiwo | | | 8 (Home) | [address] | + +--------+ +--------+ + + Advance Directives Patient has advance care planning documents, and code status on file. For more information, please contact:[facility] [place] [address] + + + + + | Code [...]
--- OUTSIDE RECORDS SUMMARY | ~2019-01-22 | XMS | Encounter Summary ---
Demographics + + + | Address | [address] | | | [place] [address] | + + + | Home Phone [...] | | | | | [place] [address] | | + + + + + Care Team Providers + +------+ + | Care Political Scientist Name | Role | Phone | [...] | 2018 | | Services at [facility] | [place], [place] | Exam | | | | [address] [facility] | [address] | | | | | [facility] | | | | | | Mailcode: L[address] | | | | | | [facility] | | | | | | [place], [place] | | | | | | [address] | | | | | | [phone] | | | +--------+ + + + [...]
--- OUTSIDE RECORDS SUMMARY | ~2019-01-22 | XMS | Encounter Summary ---
Demographics + + + | Address | [address] | | | [place] [address] | + + + | Home Phone [...] | [place] | | | | | [address] | | + + + + + Care Team Providers + +------+ + | Care Wildlife Biologist Name | Role | Phone | + [...] | | | involving | [address] | [address] [place] | | | | | [place] | MARKO MCGUIRE | [place] | | | | | coronary | [address] | [address] | | | | | artery of | Phone: | Phone: | | | | | [place] heart | [phone] | [phone] | | | | | without | Fax: | Fax: | | | | | angina | [phone] | [phone] | | | | | pectoris | | | + + + + + + + Encounter Details +--------+---------+ + + + | Date | Type | Department | Care Team | Description | +--------+---------+ + + + | 11/09/ | Office | [facility] | Randy Figueroa, | Coronary artery | | 2019 | Visit | MED CTR CARDIAC | MD [address] | disease involving | | | | REHABILITATION [address] | [place], | [place] coronary | | | | [address] [place] | [place] [address] | artery of [place] | | | | [place] [address] | [phone] | heart without angina | | | | [phone] | | pectoris (Primary | | | [...] of this encounter Progress Jonah Coker-Cheri Kendrick, BOTTLE CAPPING MACHINE OPERATOR - 11/09/2018 1000 PSTFormatting of this note might be diff erent from the original. [facility] CARDIAC REHABILITATION [address] [facility] [address] Cardiac Rehab Date: 11/09/2018 Patient Information Patient Name: Bob Will Date of : 1955 Age: 63 y.o. Encounter Diagnoses Code Name Primary? I25.10 Coronary artery disease involving [place] coronary artery of [place] heart without angina pectoris Yes Number of [...] | | | | | | [place] [address] | | | | | | [phone] | | | | | | | | +--------+ + + + + documented as of this encounter Visit Diagnoses + + | Diagnosis | + + | Coronary artery disease involving [place] coronary artery of [place] heart without | | angina pectoris - Primary | + + documented in this encounter"
--- OUTSIDE RECORDS SUMMARY | ~2019-01-22 | XMS | Encounter Summary ---
Demographics + + + | Address | [address] | | | [place] [address] | + + + | Home Phone [...] [place] | | | | | [address] | | + + + + + Care Team Providers + +------+ + | Care Mental Health Orderly Name | Role | Phone | + +------+ + | Young Haque DO | PCP | | + +------+ + Encounter Details +--------+ + + + + | Date | Type | Department | Care Team | Description | +--------+ + + + + | 03/19/ | Abstract | [facility] [place] | Jenny, | | | 2018 | | CARDIOLOGY [address] | Hansa SYRUP MACHINE LABORER [address] | | | | | [place] [facility], | [place], | | | | | [place] [address] | [place] [address] | | | | | [phone] | [phone] | | | | | | | [...] [place], | | | | | | [place] [address] | | | | | | [phone] | | | | | | | [...]
--- OUTSIDE RECORDS SUMMARY | ~2019-01-22 | XMS | Encounter Summary ---
Demographics + + + | Address | [address] | | | [place] [address] | + + + | Home Phone [...] | | | | | [place] [address] | | + + + + + Care Team Providers + +------+ + | Care Press Brake Operator Name | Role | Phone | [...] | | | | | floor [address] [facility] | | | | | | [facility] | | | | | | [place], [place] | | | | | | [address] | | | +--------+ + + + [...]
--- OUTSIDE RECORDS SUMMARY | ~2019-01-22 | XMS | Clinical Summary ---
Demographics + + + | Address | [address] [place] [address] [address] | | | [place] [address] | + + + | Home Phone [...] | | | | | [place] [address] | | + + + + + Care Team Providers + +------+ + | Care Medical Artist Name | Role | Phone | + +------+ + | Chato Matson MD | PP | | + +------+ + Source Comments EULOGIO is fully live on both [facility] Ambulatory and [facility] InPatient.[facility] Allergies No Known Allergies Medications + [...] resynchronization therapy | 10/17/2017 | | defibrillator (WASTE OIL PUMPER-D) | | + + + | Influenza, [...] Patient was difficult intubation at outside laboratory specialist. | | -secretions improving, cough strong [...] stayExtubated 03/22, started on | | [place] O5Cmkwp infusion begun 03/22 for daily goal -1 [...] | lab procedure at [facility]. Was shocked 17 times | | Targeted [...] | | | INC | | | [id number] | | Tejal Pettit MD | | | | | | X / | | | | | | | | /[address] | | | | | | | | [address]1942 | + +------+--------+ +--------+--------+--------+ + + | [...] CROSS | | 16-Pre | 8 | [address] | | | | [place] | | sent | | [place], | | | | [place] | | | | [place] [address] | | + +--------+ +--------+ + +--------+ | [place]ICAID [place] | OHP | [id number] | 03/07/20 | [phone] | [address] | Medica | | | PLUS | | 17-Pre | 6 | [address] | id | | | OPEN | | sent | | [place], [place] | | | | CARD | | | | [address] | | + +--------+ +--------+ + +--------+ + +--------+ +--------+ + + | Guarantor Name | Accoun | Relation to | Date | Phone | Billing Address | | | t Type | Patient | of | | | | | | | | | | + +--------+ +--------+ + + | Suman,Bob J | Person | Self | [birth year] | | [address] | | | [place] | | 1956 | [phone] | [address] [place] | | | taiwo | | | 8 (Home) | [address] | + +--------+ +--------+ + + Advance [...]
--- OUTSIDE RECORDS SUMMARY | ~2019-01-22 | XMS | Encounter Summary ---
Demographics + + + | Address | [address] [place] [address] [address] | | | [place] [address] | + + + | Home Phone | | + + + | Preferred Language | Unknown | + + + | Marital Status | | + + + | Amish Affiliation | Unknown | + + + | Race | Unknown | + + + | Ethnic Group | Unknown | + + + Author + + + | Author | Cassandra APERA BAGS | + + + | Organization | [employer] [facility] [employer] [facility] | + + + | Address | Unknown | + + + | Phone | Unavailable | + + + Support + + +---------+ + | Name | Relationship | Address | Phone | + + +---------+ + | Venice Mckeon | ECON | Unknown | | + + +---------+ + Care Team Providers + +------+ + | Care Provider Relations Specialist Name | Role | Phone | [...] HF chronicity, | | | | | [id number] | unspecified heart | | | | [...] RON MCKEON Date of : 1955 | [facility] | | Performing Physician: Rocio | RADIOLOGY | | [facility] | | | | | | INDICATIONS [...] MV A Rohan: 0.86 m/s MV Dec Towner: 3.26 m/s2 | | | MV DecT: [...] | 21.47 mmHg TR Vmax: 2.31 m/s [employer] Work Supervisor: ANJANA Authenticated | | | by: [facility] Report Date/Time: 11-04-2018 19:16:25 | | + + + + + | Procedure Note | + + | Sebastian, Rad Results In - 11/04/2018 7:20 PM PST Patient Name: Belkys MCKEON of | | : 5Accession: [id number] Physician: Rocio | | [facility] INDICATIONS------ | | -----CHFCONCLUSIONS 1. This was [...] | 5.92 cmLVPWd: 1.01 cmLVOT Area: 3.17 kv9RSIC Diam: 2.01 cm%FS: 15.56 %EF(Teich): | | [...] mlLAESV Index (A-L): 42.88 ml/m2LAAs A2C: 24.92 lo2LJDRR A-L | | A2C: 95.08 mlLALs A2C: 5.54 cmLAAs A4C: 19.37 ym0BKHYB A-L A4C: 70.66 mlLALs | | A4C: 4.50 cmRAAs: 18.79 jt2CNLQE A-L: 67.38 mlRAESV MOD: 63.17 mlRALs: 4.44 | | cmTAPSE: 2.12 cmAV maxP.82 mmHgAV meanP.56 mmHgAV Vmax: 1.30 m/Emil | | Vmean: 0.88 m/Emil VTI: 25.33 cmAVA Vmax: 2.55 cm2AVA (VTI): 2.49 bj6DGYN (Vmax): | | 0.00 cm2/m2AVAI (VTI): 0.00 cm2/m2LVOT maxP.40 mmHgLVOT meanP.91 | | mmHgLVSI Dopp: 29.85 ml/m2LVSV Dopp: 63.29 mlLVOT Vmax: 1.04 m/sLVOT Vmean: 0.64 | | m/sLVOT VTI: 19.92 cmMV A Rohan: 0.86 m/sMV Dec Towner: 3.26 m/s2MV DecT: 218.32 | | msMV E Rohan: 0.71 m/sMV E/A Ratio: 0.82 MV PHT: 63.31 msMVA By PHT: 3.47 | | sg2Ixpsav e': 0.04 m/sSeptal E/e': 15.51 Lateral e': 0.06 m/sLateral E/e': 10.91 | | RAP: 5 mmHgRVSP: 26.47 mmHgTR maxP.47 mmHgTR Vmax: 2.31 m/sSonographer: | | DBSAuthenticated by: [facility]hed [facility] Date/Time: 11-04-2018 19:16:25IMPRESSION:1. | | This was [...] A Rohan: 0.86 m/s | |MV Dec Towner: 3.26 m/s2 | |MV DecT: 218.32 ms [...] |TR Vmax: 2.31 m/s | | | |Iron And Steel Work Supervisor: DBS | |Authenticated by: Rocio Pearl [...] | + + + + + | [facility] | [address] | [place] [address] | | + + + + + in this encounter Visit Diagnoses + + | Diagnosis | + + | Congestive heart failure, unspecified HF chronicity, unspecified heart failure type | | (HCC) | + +"
--- OUTSIDE RECORDS SUMMARY | ~2019-01-22 | XMS | Encounter Summary ---
Demographics + + + | Address | [address] | | | [place] [address] | + + + | Home Phone | | + + + | Preferred Language | Unknown | + + + | Marital Status | | + + + | Spiritism Affiliation | NRP | + + + | Race | White | + + + | Ethnic Group | Not or | + + + Author + + + | Author | [facility] | + + + | Organization | [facility] | + + + | Address | Unknown | + + + | Phone | Unavailable | + + + Support + + + + + | Name | Relationship | Address | Phone | + + + + + | Venice Will | ECON | [address] | | | | | [place] [address] | | + + + + + Care Team Providers + +------+ + | Care Dog Daycare Provider Name | Role | Phone | [...] Rocha | | | | | | [facility] | | | | | | [place], [place] | | | | | | [address] | | | +--------+ + + + [...]
--- OUTSIDE RECORDS SUMMARY | ~2019-01-22 | XMS | Encounter Summary ---
Demographics + + + | Address | [address] | | | [place] [address] | + + + | Home Phone [...] [place] | | | | | [address] | | + + + + + Care Team Providers + +------+ + | Care Supervisory Training Specialist Name | Role | Phone | [...] + + | 11/18/ | Telephone | [facility] | Jenny, | Blood Pressure | | 2019 | | CARDIOLOGY [address] | Hansa, HOME ECONOMICS EXTENSION WORKER [address] | | | | | [place], | [place], | | | | | [place] [address] | [place] [address] | | | | | [phone] | [phone] | | | | | | | [...] | | | | | | [place] [address] | | | | | | [phone] | | | | | | | | +--------+ + + + + documented as of this encounter Visit Diagnoses Not on filedocumented in this encounter"
--- OUTSIDE RECORDS SUMMARY | ~2019-01-22 | XMS | Encounter Summary ---
Demographics + + + | Address | [address] [place] [address] [address] | | | [place] [address] | + + + | Home Phone | | + + + | Preferred Language | Unknown | + + + | Marital Status | | + + + | Tenriism Affiliation | Unknown | + + + | Race | Unknown | + + + | Ethnic Group | Unknown | + + + Author + + + | Author | Cassandra SeamlessDocs | + + + | Organization | [facility] | + + + | Address | Unknown | + + + | Phone | Unavailable | + + + Support + + +---------+ + | Name | Relationship | Address | Phone | + + +---------+ + | Venice Mckeon | ECON | Unknown | | + + +---------+ + Care Team Providers + +------+ + | Care Personnel Adviser Name | Role | Phone | + [...] HF chronicity, | | | | | [address] | unspecified heart | | | | [...] MCKEON Date of : 1955 | [facility] | | Performing Physician: Rocio | RADIOLOGY | | [facility] | | | | | | INDICATIONS [...] MV A Rohan: 0.86 m/s MV Dec Mclennan: 3.26 m/s2 | | | MV DecT: [...] | 21.47 mmHg TR Vmax: 2.31 m/s Wire Steward: ANJANA Authenticated | | | by: Rocio [facility] Report Date/Time: 11-04-2018 19:16:25 | | + + + + + | Procedure Note | + + | Sebastian, Rad Results In - 11/04/2018 7:20 PM PST Patient Name: Belkys MCKEON of | | : 5Accession: [id number] Physician: Rocio | | [facility] INDICATIONS------ | | -----CHFCONCLUSIONS 1. This was [...] | 5.92 cmLVPWd: 1.01 cmLVOT Area: 3.17 sn4COOA Diam: 2.01 cm%FS: 15.56 %EF(Teich): | | [...] mlLAESV Index (A-L): 42.88 ml/m2LAAs A2C: 24.92 ob6FYIDR A-L | | A2C: 95.08 mlLALs A2C: 5.54 cmLAAs A4C: 19.37 mp0OJMSV A-L A4C: 70.66 mlLALs | | A4C: 4.50 cmRAAs: 18.79 am0JHNDT A-L: 67.38 mlRAESV MOD: 63.17 mlRALs: 4.44 | | cmTAPSE: 2.12 cmAV maxP.82 mmHgAV meanP.56 mmHgAV Vmax: 1.30 m/Emil | | Vmean: 0.88 m/Emil VTI: 25.33 cmAVA Vmax: 2.55 cm2AVA (VTI): 2.49 kh5CMQL (Vmax): | | 0.00 cm2/m2AVAI (VTI): 0.00 cm2/m2LVOT maxP.40 mmHgLVOT meanP.91 | | mmHgLVSI Dopp: 29.85 ml/m2LVSV Dopp: 63.29 mlLVOT Vmax: 1.04 m/sLVOT Vmean: 0.64 | | m/sLVOT VTI: 19.92 cmMV A Rohan: 0.86 m/sMV Dec Mclennan: 3.26 m/s2MV DecT: 218.32 | | msMV E Rohan: 0.71 m/sMV E/A Ratio: 0.82 MV PHT: 63.31 msMVA By PHT: 3.47 | | gc8Cqpwdi e': 0.04 m/sSeptal E/e': 15.51 Lateral e': 0.06 m/sLateral E/e': 10.91 | | RAP: 5 mmHgRVSP: 26.47 mmHgTR maxP.47 mmHgTR Vmax: 2.31 m/sSonographer: | | DBSAuthenticated by: [facility]Report Date/Time: 11-04-2018 19:16:25IMPRESSION:1. | | This was [...] A Rohan: 0.86 m/s | |MV Dec Mclennan: 3.26 m/s2 | |MV DecT: 218.32 ms [...] |TR Vmax: 2.31 m/s | | | |Wire Steward: DBS | |Authenticated by: Rocio Pearl | [...] | + + + + + | [facility] | [address] | [place] [address] | | + + + + + in this encounter Visit Diagnoses + + | Diagnosis | + + | Congestive heart failure, unspecified HF chronicity, unspecified heart failure type | | (HCC) | + +"
--- OUTSIDE RECORDS SUMMARY | ~2019-01-22 | XMS | Encounter Summary ---
Demographics + + + | Address | [address] | | | [place] [address] | + + + | Home Phone [...] | | | | | [place] [address] | | + + + + + Care Team Providers + +------+ + | Care Senior Ssis Developer Name | Role | Phone | [...] | | | 2017 | Event | [facility] | MD [address] [facility] | | | | | Admitting Desk | [facility] | | | | | Located on the | [place], [place] | | | | | [address] | [address] | | | | | [facility] | [phone] | | | | | [place], [place] | | | | | | [address] | | | +--------+ + + + [...] 12:01 | | | | | Starting [facility] 03/19/17 at 1201, | | PM PDT | | | | | Until [facility] 03/19/17 at 1244 | | | | | | + +-------+ +---------+---+---+ +---+---+ | | | +---+---+ + +---------+ + +--------+---+ | propofol (DIPRIVAN) injection | New Bag | 03/19/20 | 30 | 20.34 | | | INTRAPROCEDURE CONTINUOUS PRN, | | 17 9:26 | mcg/kg/m | mL/hr | | | Starting [facility] 03/19/17 at 0926, | | AM PDT | in | | | | Until [facility] 03/19/17 at 1244 | | | | [...]
--- OUTSIDE RECORDS SUMMARY | ~2019-01-22 | XMS | Encounter Summary ---
Demographics + + + | Address | [address] | | | [place] [address] | + + + | Home Phone [...] | [place] | | | | | [address] | | + + + + + Care Team Providers + +------+ + | Care Armament Repairer Name | Role | Phone | [...] | | | involving | [address] [place] | | | | | [place] | [place] | [place] | | | | | coronary | [address] | [address] | | | | | artery of | Phone: | Phone: | | | | | [place] heart | [phone] | [phone] | | | | | without | Fax: | Fax: | | | | | angina | [phone] | [phone] | | | | | pectoris | | | + + + + + + + Encounter Details +--------+---------+ + + + | Date | Type | Department | Care Team | Description | +--------+---------+ + + + | 11/25/ | Office | [facility] | Carolina Randy, | Coronary artery | | 2019 | Visit | MED CTR CARDIAC | MD [address] | disease involving | | | | REHABILITATION [address] | [place], | [place] coronary | | | | [address] [place] | [place] [address] | artery of [place] | | | | [place] [address] | [phone] | heart without angina | | | | [phone] | | pectoris (Primary | | | [...] of this encounter Progress Jonah Coker-Cheri Kendrick, INSULATION INSPECTOR - 11/25/2018 1000 PDTFormatting of this note might be diff erent from the original. [facility] CARDIAC REHABILITATION [address] [facility] [address] Cardiac Rehab Date: 11/25/2018 Patient Information Patient [...] W | | | | | | [place], | | | | | | [place] [address] | | | | | | [phone] | | | | | | | | +--------+ + + + + documented as of this encounter Visit Diagnoses + + | Diagnosis | + + | Coronary artery disease involving [place] coronary artery of [place] heart without | | angina pectoris - Primary | + + | Post PTCA Postsurgical percutaneous transluminal coronary angioplasty status | + + documented in this encounter"
--- OUTSIDE RECORDS SUMMARY | ~2019-01-22 | XMS | Encounter Summary ---
Demographics + + + | Address | [address] | | | [place] [address] | + + + | Home Phone [...] | [place] | | | | | [address] | | + + + + + Care Team Providers + +------+ + | Care Medical Charge Entry Specialist Name | Role | Phone | [...] | | | involving | [address] [place] | | | | | [place] | MARKO MCGUIRE | MARKO Herrera | | | | | coronary | [address] | [address] | | | | | artery of | Phone: | Phone: | | | | | [place] heart | [phone] | [phone] | | | | | without | Fax: | Fax: | | | | | angina | [phone] | [phone] | | | | | pectoris | [...] MED CTR CARDIAC | MD [address] [place] | systolic congestive | | | | REHABILITATION [address] | [facility], | heart failure (HCC) | | | | [address] [place] | [place] [address] | (Primary Dx) | | | | [place] [address] | [phone] | | | | | [phone] | | | +--------+---------+ + + + [...] this encounter Progress Jonah Coker-Cheri Kendrick, SENIOR DEVELOPER - 11/23/2018 1000 PDTFormatting of this note might be diff erent from the original. [facility] CARDIAC REHABILITATION [address] [facility] [address] Cardiac Rehab Date: 11/23/2018 Patient Information Patient [...] [place], | | | | | | [place] [address] | | | | | | [phone] | | | | | | | | +--------+ + + + + documented as of this encounter Visit Diagnoses + + | Diagnosis | + + | Acute on chronic systolic congestive heart failure (HCC) - Primary Acute on chronic | | systolic heart failure | + + documented in this encounter"
--- OUTSIDE RECORDS SUMMARY | ~2019-01-22 | XMS | Encounter Summary ---
Demographics + + + | Address | [address] | | | [place] [address] | + + + | Home Phone [...] | | | | | [place] [address] | | + + + + + Care Team Providers + +------+ + | Care Vehicle Safety Inspector Name | Role | Phone | [...] | | 2011 | | Center at [facility] [address] | [address] | | | | | [address] | [place], [place] | | | | | Mailcode: [id number] | [address] | | | | | [facility] | [phone] | | | | | and Healing, [address]th | | | | | | Floor [place], [place] | | | | | | [address] | | | | | | [phone] | | | +--------+ + + + [...]
--- OUTSIDE RECORDS SUMMARY | ~2019-01-22 | XMS | Clinical Summary ---
Demographics + + + | Address | [address] | | | [place] [address] | + + + | Home Phone [...] [place] | | | | | [address] | | + + + + + Care Team Providers + +------+ + | Care Radiology Clerk Name | Role | Phone | [...] | | Activ | | (VITAMIN D-3) [address] | a week. | | | | [...] | | nasal spray | nasal spray [place] 2 | | | | | | [...] e | | spray | aerosol spray [place] | | | | | | | [...] | 11/12/2017 | + + + | FIRE INVESTIGATOR-D (AICD) Medtronic 10/16/17 EULOGIO Darby | 10/19/2017 | + + + + + | Overview: Formatting of this note might be different from the | | original. MODEL NAME MODEL# SERIAL# DATE IMPLANTED GENERATOR | | Medtronic [id number] 10/16/17 RV LEAD Medtronic [id number] 62 | | [id number] 10/16/17 A LEAD Medtronic [id number] 10/16/17 | | Coronary Sinus LEAD Medtronic 4598 [id number] 10/16/17 | | Indication: ischemic cardiomyopathy with reduced EF 30-35% Last | | Assessment & Plan: Medtronic AICD Placed in 10/2017 at [facility]. | | A:-Patient ventricular paced 100% this morning. No arrhythmias on | | telemetry.P:-No acute therapy. Continue current therapy. | | | | Last Assessment & Plan: Medtronic AICD Placed in 10/2017 at [facility]. | | | |A: | [...] + + + | Overview: S/P Medtronic FIRE INVESTIGATOR-D 10-16-17 Dr Darby, [facility] Scan | | 10/13/17 shows No [...] | Coronary artery disease involving [place] coronary artery of | 04/06/2017 | | [place] heart without angina pectoris | | + [...] with one 3.0 x 18 mm resolute oesas drug - eluting stent , | | [...] + + + | Acute anterior wall NV | 04/03/2017 | + + + + [...] | | | | [place] coronary | | | | | | artery of [place] | | | | | | heart without angina | | | | | | pectoris (Primary | | | | | | Dx); Post PTCA | +--------+ + + + + | 12/07/ | Office | | Randy Figueroa, | Coronary artery | | 2018 | Visit | | MD | disease involving | | | | | | [place] coronary | | | | | | artery of [place] | | | | | | heart [...] | | | | | (Primary Dx); FIRE INVESTIGATOR-D | | | | | | (AICD) Medtronic | | | | | | 10/16/17 [facility] Wilner; | | | | | | Ischemic | | | | | | cardiomyopathy | +--------+ + + + + | 12/02/ | Office | | Randy Figueroa, | Coronary artery | | 2018 | Visit | | MD | disease involving | | | | | | [place] coronary | | | | | | artery of [place] | | | | | | heart [...] | | | | [place] coronary | | | | | | artery of [place] | | | | | | heart [...] | | | | [place] coronary | | | | | | artery of [place] | | | | | | heart [...] | | | | [place] coronary | | | | | | artery of [place] | | | | | | heart [...] | | | | [place] coronary | | | | | | artery of [place] | | | | | | heart [...] W | | | | | | [place], | | | | | | [place] [address] | | | | | | [phone] | | | | | | | [...] 6f - | Generi | Left: | [facility] [facility] | [id number] | 12/05/ | [id number] | | [id number]: Qty: 1 | c | Groin | - TERU | [id number] | 2018 | / | | on 05/19/2018 by Missael, | | | | 20 | | /[id number] | | Khurram Isabel MD | | | | | | 371 | + +--------+--------+ +--------+--------+--------+ | Clinical Education Coordinator-D MedtronicImplanted: | Implan | | MEDTRONIC - [...] N/A: | ISAACS | | 12/29/ | [id number] | | Eluting Coronary Stent System | | [place] | DIAGNOSTICS | | 2020 | 0-18 / | | Implanted: Qty: 1 on | | ry | - DAINA | | | | | 03/15/2017 by Monse Ross, | | | | | | /[id number] | | | | | | | | 61 | + +--------+--------+ +--------+--------+--------+ | Xience Alpine Everolimus | Stent | N/A: | ISAACS | | 11/03/ | [id number] | | Eluting Coronary Stent System | | [place] | DIAGNOSTICS | | 2020 | 0-23 / | | Implanted: Qty: 1 on | | ry | - DAINA | | | | | 03/15/2017 by Monse Ross, | | | | | | /10056 | | MD | | | | | | 41 | + +--------+--------+ +--------+--------+--------+ | Kit Perclose Proglide 6fr - | | Right: | ISAACS | [id number] | | 48704- | | [id number]: Qty: 1 | | Groin | VASCULAR - | [id number] | | 03 / | | on 05/19/2018 by Missael, | | | ABVA | 89 | | | | Khurram Isabel MD | | | | | | | + +--------+--------+ +--------+--------+--------+ | Kit Perclose Proglide 6fr - | | Right: | ISAACS | [id number] | | 12021- | | [id number]: Qty: 1 | | Groin | VASCULAR - | [id number] | | 03 / / | | [...] | e | 23:59 PDT | Interrogation FIRE INVESTIGATOR-D | procedure are in the | | [...] remote PDF scanned into | | | [facility] for remote interrogation results. Data [...] | [employer] | MODA | [id number] | | [phone] | | Medica | | MEDICAID HMO | HEALTH | | 018-Pr | 1 | | id | | | MDCD | | esent | | | | | | [place] | | | | | | + +--------+ +--------+ +---------+--------+ | [employer]ANS ADMIN | VETERA | [id number] | 07/24/ | | | Indemn | | | NS | | 2016-P | | | ity | | | ADMIN | | resent | | | | | | [place] | | | | | | | | [place] | | | | | | + +--------+ +--------+ +---------+--------+ | [employer] ADMIN | VETERA | [id number] | 07/24/ | | | Indemn | [...] taiwo | | | 8 (Home) | [address] | + +--------+ +--------+ + + Advance Directives Patient has advance care planning documents, and code status on file. For more information, please contact:[facility] [place] [address] + + + + + | Code [...]
--- OUTSIDE RECORDS SUMMARY | ~2019-01-22 | XMS | Encounter Summary ---
Demographics + + + | Address | [address] | | | [place] [address] | + + + | Home Phone [...] | | | | | [place] [address] | | + + + + + Care Team Providers + +------+ + | Care Retail Team Leader Name | Role | Phone | + +------+ + | Chato Matson MD | PCP | | + +------+ + Encounter Details +--------+ + + + + | Date | Type | Department | Care Team | Description | +--------+ + + + + | 10/11/ | Procedure | Diagnostic Imaging | | | | 2018 | Pass | Services at [facility] | | | | | | [address] | | | | | | [facility] | | | | | | Mailcode: [id number] | | | | | | [place] | | | | | | [place], [place] | | | | | | [address] | | | | | | [phone] | | | +--------+ + + + [...]
--- OUTSIDE RECORDS SUMMARY | ~2019-01-22 | XMS | Encounter Summary ---
Demographics + + + | Address | [address] | | | [place] [address] | + + + | Home Phone [...] Author | [facility] | + + + | Organization | [facility] | + + + | Address | Unknown | + + + | Phone | Unavailable | + + + Support + + + + + | Name | Relationship | Address | Phone | + + + + + | [place] | ECON | [address] | | | | | [place] [address] | | + + + + + Care Team Providers + +------+ + | Care Multi Site Leasing Consultant Name | Role | Phone [...] | | 2018 | | Services at [facility] | [place], [place] | Exam | | | | [address] [facility] | [address] | | | | | [facility] | | | | | | Mailcode: [address] | | | | | | [facility] | | | | | | [place], [place] | | | | | | [address] | | | | | | [phone] | | | +--------+ + + + [...]
--- OUTSIDE RECORDS SUMMARY | ~2019-01-22 | XMS | Encounter Summary ---
Demographics + + + | Address | [address] | | | [place] [address] | + + + | Home Phone [...] [place] | | | | | [address] | | + + + + + Care Team Providers + +------+ + | Care Straw Hat Plunger Operator Name | Role | Phone | [...] | 12/06/ | Refill | [facility] [address] [facility] | Jenny, | Medication Refill | | 2018 | | CARDIOLOGY [address] | ADARSH Santo [address] | | | | | [place], | [place], | | | | | [place] [address] | [place] [address] | | | | | [phone] | [phone] | | | | | | | [...] | | | | | | [place] [address] | | | | | | [phone] | | | | | | | | +--------+ + + + + documented as of this encounter Visit Diagnoses Not on filedocumented in this encounter"
--- OUTSIDE RECORDS SUMMARY | ~2019-01-22 | XMS | Encounter Summary ---
Demographics + + + | Address | [address] | | | [place] [address] | + + + | Home Phone [...] | | | | | [place] [address] | | + + + + + Care Team Providers + +------+ + | Care Cnc Service Technician Name | Role | Phone [...] | | 2011 | | Center at [facility] [address] | [address] | | | | | [address]ayan | [place], [place] | | | | | Mailcode: [id number] | [address] | | | | | [facility] | [phone] | | | | | and Healing, 8th | | | | | | Floor [place], [place] | | | | | | [address] | | | | | | [phone] | | | +--------+ + + + [...]
--- OUTSIDE RECORDS SUMMARY | ~2019-01-22 | XMS | Encounter Summary ---
Demographics + + + | Address | [address] | | | [place] [address] | + + + | Home Phone [...] | | | | | [place] [address] | | + + + + + Care Team Providers + +------+ + | Care Solar Sales Associate Name | Role | Phone [...] David | | | | | at [facility] | [facility] | | | | | [address] | [place] [address] | | | | | [facility] | | | | | | Mailcode: [id number] [address] | | | | | | [facility] | | | | | | Building [place], | | | | | | [place] [address] | | | | | | [phone] | | | +--------+ + + + [...]
--- OUTSIDE RECORDS SUMMARY | ~2019-01-22 | XMS | Encounter Summary ---
Demographics + + + | Address | [address] | | | [place] [address] | + + + | Home Phone [...] | | | | | [place] [address] | | + + + + + Care Team Providers + +------+ + | Care Manager Support Name | Role | Phone | + [...] | | | | | | [place] [address] | | | +--------+--------+ + + + [...]
--- OUTSIDE RECORDS SUMMARY | ~2019-01-22 | XMS | Encounter Summary ---
Demographics + + + | Address | [address] | | | [place] [address] | + + + | Home Phone [...] + + + | Author | [facility] | + + + | Organization | [facility] | + + + | Address | Unknown | + + + | Phone | Unavailable | + + + Support + + + + + | Name | Relationship | Address | Phone | + + + + + | Venice Will | ECON | [address] | | | | | [place] [address] | | + + + + + Care Team Providers + +------+ + | Care Psych Tech Name | Role | Phone | [...] | | 2011 | | Center at [facility] [address] | [address] | | | | | [place] [address] | [place], [place] | | | | | Mailcode: CH8N | [address] | | | | | [facility] | [phone] | | | | | and Healing, 8th | | | | | | Floor [place], [place] | | | | | | [address] | | | | | | [phone] | | | +--------+ + + + [...]
--- OUTSIDE RECORDS SUMMARY | ~2019-01-22 | XMS | Encounter Summary ---
Demographics + + + | Address | [address] | | | [place] [address] | + + + | Home Phone [...] | | | | | [place] [address] | | + + + + + Care Team Providers + +------+ + | Care Personal Computer Specialist Name | Role | Phone | + +------+ + | Chato Matson MD | PCP | | + +------+ + Encounter Details +--------+ + + + + | Date | Type | Department | Care Team | Description | +--------+ + + + + | 03/31/ | Document-Sc | Health Information | Other, Faculty | | | 2017 | anned | Services [address] | [phone] | | | | | [address] | | | | | | Road Mailcode: | | | | | | [address] [place] [address] | | | | | | [facility] | | | | | | [place], [place] | | | | | | [address] | | | | | | [phone] | | | +--------+ + + + [...]
--- OUTSIDE RECORDS SUMMARY | ~2019-01-22 | XMS | Encounter Summary ---
Demographics + + + | Address | [address] | | | [place] [address] | + + + | Home Phone [...] [place] | | | | | [address] | | + + + + + Care Team Providers + +------+ + | Care Accounts Receivable Accountant Name | Role | Phone | [...] [place] | | | | | [place] | MARKO MCGUIRE | [place] | | | | | coronary | [address] | [address] | | | | | artery of | Phone: | Phone: | | | | | [place] heart | [phone] | [phone] | | | | | without | Fax: | Fax: | | | | | angina | [phone] | [phone] | | | | | pectoris | | | + + + + + + + Encounter Details +--------+---------+ + + + | Date | Type | Department | Care Team | Description | +--------+---------+ + + + | 12/09/ | Office | [facility] | Randy Figueroa, | Coronary artery | | 2019 | Visit | MED CTR CARDIAC | MD [address] | disease involving | | | | REHABILITATION [address] | [place], | [place] coronary | | | | [address] [place] | [place] [address] | artery of [place] | | | | [place] [address] | [phone] | heart without angina | | | | [phone] | | pectoris (Primary | | | [...] note might be different from the orig [facility] CARDIAC REHABILITATION [address] [facility] [address] Cardiac Rehab Discharge Date: 12/09/2018 Patient Information Patient Name: Bob Will Date of : 1955 Age: 63 y.o. Referring Provider: Randy Figueroa MD Encounter Diagnoses Code Name Primary? 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 He has recently increased his metoprolol dose and is on Entresto. He arrives in electric Rev heelchair and has been inactive. Fall Ri [...] control. Also began walking with his around [place] 3 days a week along with chasing [...] Dietary Education Date: 08/03/18 -Referral to Baggage Agent: Date: -DVD: Healthy Eating For Life Date: [...] exercise until stable. Date: Range: -Referral to Lumber Sorter Date: Education Points listed below- Date Completed: [...] Unforeseen circumstances makes the constant trip from [place] to not be a viable option a [...] | | | | | | [place] [address] | | | | | | [phone] | | | | | | | | +--------+ + + + + documented as of this encounter Visit Diagnoses + + | Diagnosis | + + | Coronary artery disease involving tanacross coronary artery of tan[place] heart without | | angina pectoris - Primary | + + | Post PTCA Postsurgical percutaneous transluminal coronary angioplasty status | + + documented in this encounter
--- OUTSIDE RECORDS SUMMARY | ~2019-01-22 | XMS | Encounter Summary ---
Demographics + + + | Address | [address] | | | [place] [address] | + + + | Home Phone [...] | | | | | [place] [address] | | + + + + + Care Team Providers + +------+ + | Care Cleaner Greaser Name | Role | Phone | + [...] | | | | for Health | [place] | | | | | | and Healing, | Research | | | | | | 8th Floor | Agenda | | | | | | [facility] [place] | [place], [place] | | | | | | [address] | [address] | | | | | | Phone: | Phone: | | | | | | [phone] | [phone] | | | | | | Fax: | Fax: | | | | | | [phone] | [phone] | +--------+--------+ + + + + Reason [...] | | | Degeneration | MEDICINE | [place], [place] | | | | | of cervical | [address] | [address] | | | | | | [address] | Phone: | | | | | intervertebr | [place], | [phone] | | | | | al disc | [place] [address] | Fax: | | | | | chronic | Phone: | [phone] | | | | | spine pain | [phone] | | | | | | cervical | Fax: | | | | | | stenosis | [phone] | | +--------+--------+ + + + + Encounter Details +--------+---------+ + + + | Date | Type | Department | Care Team | Description | +--------+---------+ + + + | 02/18/ | Office | [facility] at | Sapna Dutta MD | Neck pain; 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 | [facility] 8th Floor [address] | [address] | arthropathy, | | | | [address] | [place], [place] | cervical; Cervical | | | | Code: [facility] | [address] | spondylosis without | | | | for Health and | [phone] | myelopathy; | | | | Healing, 8th Floor | | Impingement syndrome | | | | [place], [place] | | of left shoulder; | | | | [address] | | Physical | | | | [phone] | | deconditioning; Post | | | [...] for ideas. You will greatly increase your [facility] es of success if you take [...] a smoking cessation program, such as the [employer] [facility]'s [place] from Smoking program. Set a quit date. [...] in several forms, many of them available [id number]: Nicotine patches Nicotine gum and lozenges Nicotine [...] Smoking: After Your Visit", log into your [employer] account at [email or web address]. You can enter Y522 in the [employer] search box. Not on [employer]? Review the [employer] section of your After Visit Summary for directions on ho w to sign up. [phone] [employer]. Care instructions adapted under license by [facility]. This care instruction is for use with your licensed healthcar e professional. If you have questions about a medical condition or this instruction, always ask your healthcare professional. [employer] disclaims any warranty or liabili ty for your use of this information. Content Version: 9.3.13210; Last Revised: March 26, 2011 Information about [...] your doctor have elected to try a fci solution, the nerve to the facet j [...] frequently to treat pain of longstanding duration. [facility] Njuektrxirmkpm signed by Sapna Dutta MD at 02/19/2012 11:42 AM PDT documented in this encounter Progress Notes Sapna Dutta MD - 02/19/2012 10:50 AM PDT [facility] Office Visit Date: 02/19/2012 Mr. Mckeon was referred for Spine Center evaluation by Yesi Guerrero MD [facility] [address] [place] [address]. Reason for consult: Chief Complaint: Chief Complaint [...] offered surgery. 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 He lives with h is of 7 years, and they get along well. 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 He does not feel that he has had effective therapy for this problem. . He is here to "just get rid of the pain." Mr. Mckeon served in the [employer] from 3418-0339, including the first [place] war, d [employer] trucks. He was in combat. He does [...] by mouth two times daily. MULTIVITAMIN WITH [id number] 400 MCG-300 MCG-120 MG TAB Take by [...] : 1955 Age: 56 Sex: M Acct: [id number] Loc: MRI Exam Date: 11/05/2011 Status: REG REF Radiology No: Unit No: [id number] EXAM# TYPE/EXAM RESULT CPT CODE [id number] MRI/CERVICAL SPINE W/O CONTRAST [id number] EXAM: MRI CERVICAL SPINE, Nov 05, 2011 01:04:00 PM. CLINICAL HISTORY: Chronic neck and left arm pain. COMPARISON: Cervical spine MRI from [facility] on 02/14/2010. TECHNIQUE: T1 and T2 sagittal [...] consider this. Mr. Mckeon cannot come to [facility] for treatment on any kind of [...] branch denerva tion option SAPNA DUTTA MD [facility] documented in this encounter Plan [...] | 1955 Age: 56 Sex: M Acct: [id number] Loc: MRI Exam Date: | | | 11/05/2011 Status: REG REF Radiology No: Unit No: [id number] | | | EXAM# TYPE/EXAM RESULT CPT CODE [id number] MRI/CERVICAL SPINE W/O | | | CONTRAST [id number] EXAM: MRI CERVICAL SPINE, Nov 05, 2011 01:04:00 | | | PM. CLINICAL HISTORY: Chronic neck and left arm pain. | | | COMPARISON: Cervical spine MRI from [facility] on | | | 02/14/2010. TECHNIQUE: T1 [...]
--- OUTSIDE RECORDS SUMMARY | ~2019-01-22 | XMS | Encounter Summary ---
Demographics + + + | Address | [address] | | | [place] [address] | + + + | Home Phone [...] [place] | | | | | [address] | | + + + + + Care Team Providers + +------+ + | Care Postbed Stitcher Name | Role | Phone | + [...] NEPHROLOGY [address] | MD [address] | | | | | [address] | [address] [place] | | | | | [place], [place] | [place] [address] | | | | | [address] | [phone] | | | | | [phone] | | | +--------+ + + + [...] | | | | | | [place] [address] | | | | | | [phone] | | | | | | | [...]
--- OUTSIDE RECORDS SUMMARY | ~2019-01-22 | XMS | Encounter Summary ---
Demographics + + + | Address | [address] | | | [place] [address] | + + + | Home Phone [...] | | | | | [place] [address] | | + + + + + Care Team Providers + +------+ + | Care Ultrasonic Seaming Machine Operator Name | Role | Phone | + +------+ + | Chato Matson MD | PCP | | + +------+ + Encounter Details +--------+ + + + + | Date | Type | Department | Care Team | Description | +--------+ + + + + | 03/19/ | Procedure | 6A Intra Op [facility] | | | | 2016 | Pass | [facility] | | | | | | Admitting Desk | | | | | | Located on the 9th | | | | | | floor [address] [facility] [address] | | | | | | [facility] | | | | | | [place], [place] | | | | | | [address] | | | +--------+ + + + [...]
--- OUTSIDE RECORDS SUMMARY | ~2019-01-22 | XMS | Encounter Summary ---
Demographics + + + | Address | [address] | | | [place] [address] | + + + | Home Phone [...] | [place] | | | | | [address] | | + + + + + Care Team Providers + +------+ + | Care Hearing Officer Name | Role | Phone | [...] | | | involving | [address] [place] | | | | | [place] | MARKO MCGUIRE | [place] | | | | | coronary | [address] | [address] | | | | | artery of | Phone: | Phone: | | | | | [place] heart | [phone] | [phone] | | | | | without | Fax: | Fax: | | | | | angina | [phone] | [phone] | | | | | pectoris | | | + + + + + + + Encounter Details +--------+---------+ + + + | Date | Type | Department | Care Team | Description | +--------+---------+ + + + | 11/23/ | Office | [facility] | Rahullindacathy Lindaangusleo, | Acute on chronic | | 2019 | Visit | MED CTR CARDIAC | MD [address] | systolic congestive | | | | REHABILITATION [address] | [place], | heart failure (HCC) | | | | [address] [place] | [place] [address] | (Primary Dx) | | | | [place] [address] | [phone] | | | | | [phone] | | | +--------+---------+ + + + [...] of this encounter Progress Jonah Coker-Cheri Kendrick, CNC TECHNICIAN - 11/23/2018 1000 PDTFormatting of this note might be diff erent from the original. [facility] CARDIAC REHABILITATION [address] [facility] [address] Cardiac Rehab Date: 11/23/2018 Patient Information Patient [...] [place], | | | | | | [place] [address] | | | | | | [phone] | | | | | | | | +--------+ + + + + documented as of this encounter Visit Diagnoses + + | Diagnosis | + + | Acute on chronic systolic congestive heart failure (HCC) - Primary Acute on chronic | | systolic heart failure | + + documented in this encounter"
--- OUTSIDE RECORDS SUMMARY | ~2019-01-22 | XMS | Encounter Summary ---
Demographics + + + | Address | [address] | | | [place] [address] | + + + | Home Phone [...] | | | | | [place] [address] | | + + + + + Care Team Providers + +------+ + | Care Grocery Deliverer Name | Role | Phone | + [...] Rocha | | | | | | [facility] | | | | | | [place], [place] | | | | | | [address] | | | +--------+ + + + [...]
--- OUTSIDE RECORDS SUMMARY | ~2019-01-22 | XMS | Encounter Summary ---
Demographics + + + | Address | [address] | | | [place] [address] | + + + | Home Phone [...] | | | | | [place] [address] | | + + + + + Care Team Providers + +------+ + | Care Community Development Aide Name | Role | Phone | [...] | | | | | | [facility] | | | | | | [place], [place] | | | | | | [address] | | | +--------+ + + + [...]
--- OUTSIDE RECORDS SUMMARY | ~2019-01-22 | XMS | Encounter Summary ---
Demographics + + + | Address | [address] | | | [place] [address] | + + + | Home Phone [...] | | | | | [place] [address] | | + + + + + Care Team Providers + +------+ + | Care Audiovisual Aids Technician Name | Role | Phone | [...] Rocha | | | | | | [facility] | | | | | | [place], [place] | | | | | | [address] | | | +--------+ + + + [...]
--- OUTSIDE RECORDS SUMMARY | ~2019-01-22 | XMS | Encounter Summary ---
Demographics + + + | Address | [address] | | | [place] [address] | + + + | Home Phone [...] | [place] | | | | | [address] | | + + + + + Care Team Providers + +------+ + | Care Polisher Aluminum Name | Role | Phone | + [...] | | | involving | [address] [place] | | | | | [place] | MARKO MCGUIRE | [place] | | | | | coronary | [address] | [address] | | | | | artery of | Phone: | Phone: | | | | | [place] heart | [phone] | [phone] | | | | | without | Fax: | Fax: | | | | | angina | [phone] | [phone] | | | | | pectoris | | | + + + + + + + Encounter Details +--------+---------+ + + + | Date | Type | Department | Care Team | Description | +--------+---------+ + + + | 11/30/ | Office | [facility] | Carolina Randy, | Coronary artery | | 2019 | Visit | MED CTR CARDIAC | MD [address] | disease involving | | | | REHABILITATION [address] | [place], | [place] coronary | | | | [address] [place] | [place] [address] | artery of [place] | | | | [place] [address] | [phone] | heart without angina | | | | [phone] | | pectoris (Primary | | | [...] note might be different from the orig [facility] CARDIAC REHABILITATION [address] [facility] [address] Cardiac Rehab Date: 11/30/2018 Patient Information Patient [...] W | | | | | | [place], | | | | | | [place] [address] | | | | | | [phone] | | | | | | | [...]
--- OUTSIDE RECORDS SUMMARY | ~2019-01-22 | XMS | Encounter Summary ---
Demographics + + + | Address | [address] | | | [place] [address] | + + + | Home Phone [...] [place] | | | | | [address] | | + + + + + Care Team Providers + +------+ + | Care Firearms Model Maker Name | Role | Phone | [...] | Telephone | [facility] [place] | [place], | Medication Related | | 2018 | | CARDIOLOGY [address] | ADARSH Santo [address] | | | | | [place], | [place], | | | | | [place] [address] | [place] [address] | | | | | [phone] | [phone] | | | | | | | [...] W | | | | | | [place], | | | | | | [place] [address] | | | | | | [phone] | | | | | | | [...] | starting 11/30/2018 | | | | unga coronary | until 12/01/2019 | | | | artery of [place] | | | | | heart without angina | | | | | pectoris | | + +--------+ + + documented as of this encounter Visit Diagnoses + + | Diagnosis | + + | Coronary artery disease involving unga coronary artery of un[place] heart without | | angina pectoris - Primary | + + documented in this encounter"
--- OUTSIDE RECORDS SUMMARY | ~2019-01-22 | XMS | Encounter Summary ---
Demographics + + + | Address | [address] | | | [place] [address] | + + + | Home Phone | | + + + | Preferred Language | Unknown | + + + | Marital Status | | + + + | Synagogue Affiliation | NRP | + + + | Race | White | + + + | Ethnic Group | Not or | + + + Author + + + | Author | [facility] | + + + | Organization | [facility] | + + + | Address | Unknown | + + + | Phone | Unavailable | + + + Support + + + + + | Name | Relationship | Address | Phone | + + + + + | Venice Will | ECON | [address] | | | | | [place] [address] | | + + + + + Care Team Providers + +------+ + | Care Financial Reporting Consultant Name | Role | Phone | [...] Rocha | | | | | | [facility] | | | | | | [place], [place] | | | | | | [address] | | | +--------+ + + + [...]
--- OUTSIDE RECORDS SUMMARY | 2019-01-22 19:56 | XMS ---
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 Events No recent Security Events currently on file CRITERIA MET - Group Notification - 6 ED Visits in 6 Months - [facility] - Has Care Guidelines - [facility] - 2 Visits in 30 Days CARE PROVIDERS Guido Lainez Internal Medicine: Pulmonary Disease 10/18/2018-Current PHONE: Unknown KIMMIE GONZALEZ Internal Medicine 01/11/2019-Current JE PHONE: [phone] KAREN AYALA Family Medicine: Sports Medicine 06/22/2018-Current PHONE: Unknown LUCY HERNANDEZ Primary Care 10/22/2015-Current PHONE: Unknown Ananda has no Care Guidelines for this patient. Care History Medical/Surgical 01/11/2019 [facility] - PATIENT HAS AN APT WITH DR GONZALEZ ON 01/14/19 FOR FOLLOW UP TO ED VISITS. - PATIENT HAS DECLINED SERVICES FROM [facility]. 10/18/2018 [facility] - Patient is currently established with [facility]. If patient is seen in the ED during business hours. Please contact CHWs at [facility]. Care Recommendation: This patient has had 5 or more Emergency Department visits in the last 12 months.\T\nbsp; Patient requires education on the scope and purpose of the ED as an acute care provider not a Primary Care Provider and should not be utilized for chronic conditions.\T\nbsp; These are guidelines and the provider should exercise clinical judgment when providing care. 12/07/2017 [facility] - Patient is currently utilizing PCP Dr Matson and has been referred to a gold stamper. - All chronic conditions please refer to [...] ED please contact Community Health WorkerLamar at [phone]. These are guidelines and the provider should exercise clinical judgment when providing care. [facility] ([facility] MO.) [facility] TOTAL 17 NOTE: Visits indicate total known visits. ED/UCC VISIT TRACKING (12 MO.) 01/22/2019 19:53 [facility] TYPE: Emergency COMPLAINT: - SOB 01/14/2019 06:06 [facility] TYPE: Emergency COMPLAINT: - POSS RESPIRATORY DISTRESS 01/10/2019 08:02 [facility] TYPE: Emergency COMPLAINT: - SOB DIAGNOSES: - Dyspnea, unspecified - Other equipment operator intermodal yard (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 - Pure hypercholesterolemia, unspecified - Acquired absence of other specified parts of digestive tract - Heart failure, unspecified - group home (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 - Personal history [...] disease, or unspecified chronic kidney disease - keno terminal operator (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 - Personal history of nicotine dependence - Chronic obstructive pulmonary disease, unspecified - Other correction (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 - Pure hypercholesterolemia, unspecified [...] DIAGNOSES: - Old myocardial infarction - Other equipment operator intermodal yard (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 - keno terminal operator (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 - Shortness of [...] nicotine dependence - Chest pain, unspecified - keno terminal operator (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 - Presence of coronary angioplasty implant and graft - Other correction (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 - Acquired absence of other specified parts of digestive tract - Presence of cardiac pacemaker 10/16/2018 06:03 [facility] TYPE: Emergency COMPLAINT: - SOB [facility] DIAGNOSES: - low bp - Adverse effect of beta-adrenoreceptor antagonists, initial encounter - Weakness - Hypotension 08/18/2018 00:07 [facility] TYPE: Emergency COMPLAINT: - SOB DIAGNOSES: - Hypertensive heart disease with heart failure - Disorder of kidney and ureter, unspecified - Personal history of nicotine dependence - Other correction (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 - Heart failure, unspecified - Shortness of breath - Old myocardial infarction - Chronic obstructive pulmonary disease with (acute) exacerbation - Pure hypercholesterolemia, unspecified 08/09/2018 09:56 [facility] TYPE: Emergency COMPLAINT: - L HIP PAIN/NO INJURY DIAGNOSES: - Pain in left hip - Sciatica, left side - Pure hypercholesterolemia, unspecified - Essential (primary) hypertension - Other correction (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 - Old myocardial infarction 06/26/2018 06:43 [facility] TYPE: Emergency COMPLAINT: - SOB DIAGNOSES: - Heart failure, unspecified - Shortness of breath - Hypertensive heart disease with heart failure - Chronic obstructive pulmonary disease with (acute) exacerbation - Other correction (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 06/17/2018 02:41 [facility] TYPE: Emergency COMPLAINT: - SOB DIAGNOSES: - Other equipment operator intermodal yard (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 - Dyspnea, unspecified - Essential (primary) hypertension - Presence of coronary angioplasty implant and graft - group home (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 - Personal history of nicotine dependence - Shortness of breath 05/01/2018 07:47 [facility] TYPE: Emergency DIAGNOSES: - Chest pain, unspecified - Non-ST elevation (NSTEMI) myocardial infarction - Acute pulmonary edema - Shortness of Breath 05/01/2018 03:23 [facility] TYPE: Emergency COMPLAINT: - SOB DIAGNOSES: - Shortness of breath - keno terminal operator (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 - Non-ST elevation (NSTEMI) myocardial infarction - Heart failure, unspecified - Other equipment operator intermodal yard (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 - Personal history of nicotine dependence 04/17/2018 06:31 [facility] TYPE: Emergency COMPLAINT: - CHEST PAIN DIAGNOSES: - Personal history of nicotine dependence - Chest pain, unspecified - Precordial pain INPATIENT VISIT TRACKING (12 MO.) 01/14/2019 06:07 [facility] TYPE: Observation COMPLAINT: - CHF DIAGNOSES: - Presence of automatic (implantable) cardiac defibrillator - Acute respiratory failure with hypoxia - Atherosclerotic heart disease of [place] coronary artery without angina pectoris - keno terminal operator (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 of antithrombotics/antiplatelets - Shortness of breath - Chronic kidney disease, stage 4 (severe) - keno terminal operator (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 of opiate analgesic - Chronic pain syndrome - keno terminal operator (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 - Gastro-esophageal reflux disease without esophagitis - Acute on chronic systolic (congestive) heart failure - Presence of coronary angioplasty implant and graft - Type 2 diabetes mellitus with diabetic chronic kidney disease - Hyperlipidemia, unspecified - Type 2 diabetes mellitus with hyperglycemia - Acute kidney failure, unspecified - Other equipment operator intermodal yard (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 - Chronic ischemic heart disease, unspecified - Old myocardial infarction 12/11/2018 09:[address] [facility] [place] TYPE: Medical Surgical COMPLAINT: - CHF DIAGNOSES: - Presence of automatic (implantable) cardiac defibrillator - Hyperlipidemia, unspecified - keno terminal operator (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 - Personal history of nicotine dependence - Hypotension due to drugs - Chronic obstructive pulmonary disease, unspecified - Cervicalgia - keno terminal operator (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 of antithrombotics/antiplatelets - Acute on [...] count, unspecified - Atherosclerotic heart disease of [place] coronary artery without angina pectoris - Acute kidney failure, unspecified - Other correction (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 - Acute and chronic respiratory failure with hypoxia - Type 2 diabetes mellitus with diabetic chronic kidney disease - Gastro-esophageal reflux disease without esophagitis - Dependence on supplemental oxygen - group home (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 of oral hypoglycemic drugs - Opioid dependence, uncomplicated 11/02/2018 22:09 [facility] TYPE: Medical Surgical COMPLAINT: - DECOMPENSATED HEART FAILURE DIAGNOSES: - Hyperlipidemia, unspecified - Type 2 diabetes mellitus with diabetic chronic kidney disease - Chronic kidney disease, stage 3 (moderate) - Coronary angioplasty status - Personal history of nicotine dependence - Presence of automatic (implantable) cardiac defibrillator - group home (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 of opiate analgesic - Psychophysiologic insomnia - Chronic pain syndrome - Old myocardial infarction - keno terminal operator (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 of antithrombotics/antiplatelets - Chronic obstructive pulmonary disease, unspecified - Idiopathic sleep related nonobstructive alveolar hypoventilation - Gastro-esophageal reflux disease without esophagitis - Acute on chronic systolic (congestive) heart failure - Acute respiratory failure with hypoxia - keno terminal operator (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 of oral hypoglycemic drugs - keno terminal operator (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 - Other equipment operator intermodal yard (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 - Atherosclerotic heart disease of [place] coronary artery without angina pectoris 10/16/2018 06:04 [facility] TYPE: Observation COMPLAINT: - DECOMPENSATED HEART FAILURE DIAGNOSES: - Ischemic cardiomyopathy - Type 2 diabetes mellitus with diabetic chronic kidney disease - Chronic pain syndrome - Dependence on supplemental oxygen - Unspecified inflammatory spondylopathy, cervical region - Chronic obstructive pulmonary disease, unspecified - group home (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 of oral hypoglycemic drugs - Personal history of nicotine dependence - keno terminal operator (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 - Presence of automatic (implantable) cardiac defibrillator - Other correction (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 - Acute on chronic systolic (congestive) heart failure - Presence of coronary angioplasty implant and graft - Atherosclerotic heart disease of [place] coronary artery without angina pectoris - Old myocardial infarction - Chronic respiratory failure with hypoxia - Shortness of breath - Gastro-esophageal reflux disease without esophagitis - keno terminal operator (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 of opiate analgesic - Hypertensive chronic kidney disease with stage 1 through stage 4 chronic kidney disease, or unspecified chronic kidney disease - group home (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 of antithrombotics/antiplatelets - Chronic kidney disease, stage 3 (moderate) - Hyperlipidemia, unspecified 05/13/2018 16:21 [facility] TYPE: Cardiology DIAGNOSES: - Heart failure, unspecified - Atherosclerotic heart disease of [place] coronary artery without angina pectoris - Family history of other specified conditions - Atherosclerotic heart disease of [place] coronary artery with other forms of angina pectoris - Chronic systolic (congestive) heart failure - Coronary Artery Disease - Other forms of angina pectoris - Ischemic cardiomyopathy - Other forms of dyspnea - Essential (primary) hypertension - Presence of automatic (implantable) cardiac defibrillator 05/01/2018 07:47 [facility] TYPE: General Medicine DIAGNOSES: - Acute pulmonary edema - Non-ST elevation (NSTEMI) myocardial infarction - Chest pain, unspecified - Illness, unspecified [email or web address]
--- NOTE | 2019-01-22 22:45 | NUR ---
Patient arrived to unit, ambulated independently to hospital bed, RR WNL, no respiratory distress, denies feeling SOB, SpO2 88% on 6L O2 via oxymask, instructed to take deep breaths, SpO2 now 94% on 6L O2. Alert and oriented x4, follows commands appropriately. HR and BP WNL, atrial paced rhythm noted, peripheral pulses well felt in all extremities, 2+ pitting edema in RLE, 1+ pitting edema in LLE. Lungs have crackles in LLL of lungs, clear in all other lung [place]. Abdomen in firm, non-tender, states normal, denies nausea. Skin grossly intact, face is flushed. IV intact, flushes well, IV abx per ED infusing. Patient denies pain at this time, denies needs. Call light within reach. Vitals WNL.
--- NOTE | 2019-01-23 01:00 | NUR ---
Patient reports feeling SOB, RR between 14 and 18, SpO2 94% on 6L O2 via oxymask, EXW heard in RLL of lungs, crackles heard in LLL, clear in upper lung chadwick. Notified Dr. Fox of SOB and wheezing, PRN albuterol breathing treatment ordered Q2H PRN, also orderd duoneb breathing treatments QID while awake.
--- NOTE | 2019-01-23 01:20 | NUR ---
Assessment done, no acute changes from previous, patient has crackles in LLL of lung, patient denies feeling SOB after breathing treatment per RT. No improvement in edema of BLE, vitals WNL, remains on 6L O2 via oxymask. Denies further needs at this time. Call light within reach.
--- NOTE | 2019-01-23 03:06 | NUR ---
Patient is restful with eyes closed, breathing is even and unlabored. RR 15, SpO2 90% on 6L O2 oxymask while asleep. FLACC score 0, call light within reach.
--- NOTE | 2019-01-23 03:23 | NUR ---
Patient restful with eyes closed, RR 15 to 20, SpO2 86% on 6L O2, titrated to 8L O2, SpO2 raised to 88%, called RT, patient placed on BiPAP 15/8, 60% FiO2, SpO2 now 100%, RR 20. Will continue to monitor SpO2, will titrated FiO2 as necessary. Patient now sitting on edge of bed. Denies needs at this time, he states "I just really don't like wearing this mask." Educated patient about need for BiPAP and hypoxia. Patient reports understanding. Call light within reach.
--- NOTE | 2019-01-23 03:38 | NUR ---
SpO2 remains 100% on 60% FiO2, titrated to 40% FiO2. Patient states that pain is improved, denies further needs at this time. Call light within reach.
--- NOTE | 2019-01-23 04:25 | NUR ---
Patient requesting to take BiPAP off, he states "it is just annoying, this is what I do at home too, my oxygen gets low when I sleep." Educated patient about SpO2 needs with CHF. Patient also states "I think I just overdid it with the water at home." Educated patient about need for fluid restriction at home and told patient the importance of daily weight, which patient admits he has not weighed himself daily for a while, states he has scale at home. Assessment done, has crackles in LLL of lungs, clear in all other [place]adwick. Edema has worsened in BLE 3+ in RLE, 2+ in LLE, educated patient about dependent edema and resting with legs elevated, patient states understanding. No other acute changes in assessment. Now has oxymask on at 6L O2, will continue to watch SpO2 closely. Call light within reach.
--- NOTE | 2019-01-23 05:56 | NUR ---
Patient remains sitting at edge of bed, SpO2 100% on 4L O2, titrated to room air, SpO2 remains 93%. Patient denies needs at this time. Call light within reach.
--- NOTE | 2019-01-23 08:30 | NUR ---
PATIENT SITTING UP AT EDGE OF BED IN TRIPOD POSITION. PATIENT ON ROOM AIR WITH SP02 OF 91%, RR OF 20. PATIENT STATES HE HAS "NASAL CONGESTION WHICH IS MAKING MY BREATHING HARDER." PATIENT IS OFFERED A SINUS IRRIGATION TO HELP CLEAR HIS SINUSES, WHICH HE STATES HE WOULD LIKE. RT IN ROOM ADMINISTERING DUONEB. PATIENT LUNG SOUNDS CLEAR IN THE UPPERS, WITH CRACKLES IN THE BASES. PATIENT EDUCATED ON HIS 1500 ML FLUID RESTRICTION AND IS COMPLIANT WITH THIS INTERVENTION. PATIENT IV SITE FLUSHES WELL AND SITE IS BENIGN. PATIENT STATES HE HAS "PAIN IN MY NECK AND SHOULDERS, MAY I HAVE A PAIN PILL?" PATIENT IS GIVEN A PRN DOSE OF OXYCODONE. PATIENT DENIES ANY FURTHER NEEDS AT THIS TIME, CALL LIGHT WITHIN REACH.
--- NOTE | 2019-01-23 09:30 | NUR ---
PATIENT GIVEN AM MEDICATIONS, TOLERATED WELL. PATIENT STEADY ON FEET AND ABLE TO STAND AND VOID USING THE BESIDE URINAL. PATIENT VOIDS 300 ML OF YELLOW URINE, NO ODOR NOTED. PATIENTS DIET ADVANCED TO HEART HEALTHY SINCE HIS SP02 IS ABOVE 91% ON ROOM AIR. PATIENT DENIES ANY FURTHER NEEDS AT THIS TIME, CALL LIGHT WITHIN REACH.
--- NOTE | 2019-01-23 10:00 | NUR ---
PATIENT LAYING IN BED IN SEMI-FOWLERS POSTION SLEEPING. PATIENT WEARING AN OXYMASK WITH 3 L OF OXYGEN SINCE HE DESATURATED INTO THE MID-80'S WHILE SLEEPING. PATIENTS OXYGEN INCREASED TO 6.5 L VIA OXYMASK AND HIS SATURATIONS CLIMBED TO 91%.
--- NOTE | 2019-01-23 10:45 | NUR ---
PATIENT STATES HIS PAIN HAS DECREASED TO AN ACCEPTABLE LEVEL SINCE TAKING THE PRN OXYCODONE. PATIENT HAS ABX INITIATED AND INFUSING AT 25 MLS/HR. PATIENT SITTING UP AT EDGE OF BED IN TRIPOD POSITION. PATIENT CURRENTLY USING AN OXYMASK AT 6.5 L OF OXYGEN WITH SPO2 AT 98%, RR OF 20. PATIENT STATES HIS BREATHING "FEELS BETTER." PATIENT DENIES ANY FURTHER NEED AT THIS TIME, CALL LIGHT WITHIN REACH.
--- NOTE | 2019-01-23 11:54 | NUR ---
RT IN ROOM ADMINISTERING DUONEB.
--- NOTE | 2019-01-23 13:01 | NUR ---
PATIENTS BILATERAL LOWER EXTREMITY EDEMA ASSESSED. 2+ PITTING EDEMA IN LOWER LEGS WITH TRACE EDEMA AT KNEECAPS. EDEMA DOES NOT EXTEND PAST KNEES. ISSA HOSES PUT ON PATIENT AND HE IS EDUCATED ON HOW THIS INTERVENTION PROMOTES VENOUS RETURN, WILL REDUCE THE SWELLING IN HIS LEGS, AND INCREASE PRELOAD. PATIENT EDUCATED ON IMPORTANCE OF ELEVATING HIS FEET THROUGHOUT THE DAY, WELL WEARING ISSA HOSE AT HOME DAILY. PATIENT RECEIVED NASAL IRRIGATION AND GREEN SPUTUM CLEARED FROM NASAL PASSAGES. PATIENT STATES HE "FEELS BETTER" AND IS ABLE TO BREATHE EASIER AFTER IRRIGATION. WILL CONTINUE TO ADMINISTER NASAL IRRIGATION NEEDED. PATIENT SITTING AT EDGE OF BED IN TRIPOD POSITION, DENIES ANY FURTHER NEED AT THIS TIME, CALL LIGHT WITHIN REACH.
--- NOTE | 2019-01-23 13:28 | NUR ---
Medications reconciled. Patient was discharged a few days ago with no changes made at that time
--- NOTE | 2019-01-23 15:10 | EKG ---
[facility] [address] [place], [place] [address] Signed Atrial-sensed ventricular-paced rhythm Biventricular pacemaker detected Abnormal ECG When compared with ECG of 14-JAN-2019 06:19, Vent. rate has increased BY 13 BPM Confirmed by HUEY GORDON DO ([id number]) on 01/23/2019 3:10:28 PM Electronically Signed By: HUEY GORDON DO 01/23/19 1510 PATIENT NAME: RON MCKEON RACHEL Electrocardiogram DATE OF : 53 PHYSICIAN: HUEY GORDON DO REPORT #: [id number] REPORT IS CONFIDENTIAL AND NOT TO BE RELEASED WITHOUT AUTHORIZATION
--- NOTE | 2019-01-23 16:40 | NUR ---
PATIENT STATES HE FEELS "SHORT OF BREATH." RT CALLED TO ADMINISTER DUONEB TX. PATIENT SPO2 IN THE HIGH 90'S WITH RR OF 20. AFTER DUONEB TX, PATIENT PUT ON BIPAP TO INCREASE EASE OF BREATHING. PATIENT SITTING IN HIGH FOWLERS IN BED WITH AT BEDSIDE AT THIS TIME. PATIENTS SPO2 INCREASES TO 100% WITH RR OF 14. PATIENT APPEARS TENSE, GRIPPING SIDE RAILS WITH HANDS, LEGS RESTLESS. PATIENT CONTINUED TO BE MONITORED BY RT AND RN DURING BIPAP TX. PATIENT NOW APPEARS TO BE SLEEPING IN BED WITH AN SP02 OF 98% AND RESPIRATIONS OF 16. PATIENT LUNG SOUNDS CLEAR IN THE UPPER LOBES, WITH NOTABLE DECREASES IN AUDIBLE CRACKLES IN BILATERAL LOWER LOBES. PATIENT LEFT SLEEPING IN HIGH FOWLERS POSITION AT THIS TIME.
--- NOTE | 2019-01-23 17:22 | NUR ---
PATIENT SITTING AT EDGE OF BED EATING DINNER. PATIENT ON 3LNC WHILE EATING WITH SPO2 OF 98% AND RR OF 16. HE STATES "MY BREATHING FEELS BETTER AFTER BEING ON THE BIPAP." PATIENT STATES HE HAS PAIN IN HIS "NECK, LOWER BACK, AND LEFT LEG." PRN DOSE OF OXYCODONE ADMINISTERED. PATIENT DENIES ANY FURTHER NEEDS AT THIS TIME, CALL LIGHT WITHIN REACH.
--- NOTE | 2019-01-23 17:56 | NUR ---
PATIENT FINISHED WITH MEAL AND SWITCHED FROM NC BACK TO OXYMASK. PATIENTS SP02 AT 97% WITH RR OF 16 ON 3L VIA OXYMASK. PATIENT DECLINES ANOTHER NASAL IRRIGATION AT THIS TIME. WARM BLANKET PROVIDED ON REQUEST. PATIENT DENIES ANY FURTHER NEEDS AT THIS TIME. CALL LIGHT WITHIN REACH.
--- NOTE | 2019-01-23 19:30 | NUR ---
REPORT RECEIVED, PT RESTING IN BED, EYES CLOSED, BREATHS EVEN, PT'S OXYGEN TITRATED UP TO 6L VIA OXY MASK WHIILE PT IS SLEEPING/RESTING, O2 SAT 94%, NO C/O SOB/CP, CALL LIGHT WITHIN REACH.
--- NOTE | 2019-01-23 20:00 | NUR ---
RT TO ROOM TO ADMINISTER NEB, PT'S VSS, HR 78, BP 119/63, O2 SAT 98% WHILE RECEIVING NEB, RR 14, RT REMAINS IN ROOM. CALL LIGHT WITHIN REACH.
--- NOTE | 2019-01-23 20:31 | NUR ---
DR. GORDON TO THE UNIT UPDATED ON PT AND VISITED WITH PT, DISCUSSED USE OF PRN MORPHINE RELATED TO SOB/ANXIETY, STATED WE COULD USE 1MG IV MORPHINE IF NEEDED RELATED TO SOB EXACERBATION THAT IS NOT ALLEVIATED BY BIPAP WELL TO CONTINUE TO ENCOURAGE BIPAP USE. NO FURTHER ORDERS.
--- NOTE | 2019-01-23 20:34 | NUR ---
IN ROOM FOR ASSESSMENT PT AOX4, APPROPRIATE, SITTING AT BEDSIDE. PT'S CBG 150, INSULIN COVERAGE PROVIDED PER EMAR SS, PT DENIES SIGNIFICANT PAIN AT THIS TIME, ALSO DENIES SOB, PT ON 3L VIA OXY MASK, O2 SAT 100%, RR 14, LS CLEAR, ABDOMEN DISTENDED, BT HYPOACTIVE, PT DENIES DISCOMFORT, NO LIGHT HEADEDNESS OR DIZZINESS, 1+ PITTING EDEMA NOTED IN BLE, ISSA HOSE IN PLACE. BLE PULSES FAINT, PT VOIDED 375 MLS OF YELLOW URINE IN URINAL, PT GIVEN LAST 200 MLS OF WATER FOR THE NIGHT. EDUCATION PROVIDED REGARDING FLUID RESTRICTION AND CHF, PT DENIES FURTHER NEEDS AT THIS TIME, CALL LIGHT WITHIN REACH.
--- NOTE | 2019-01-23 21:45 | NUR ---
PT'S CALLED FOR UPDATE, QUESTIONS ANSWERED,
--- NOTE | 2019-01-23 22:15 | NUR ---
PT REQUESTING PRN MELATONIN, MELATONIN GIVEN PER EMAR, PT CONTINUES TO DENY SIGNIFICANT PAIN, DENIES NEED FOR PRN PAIN MEDICATION. PT DENIES SOB, ON 3L VIA OXY MASK, O2 SAT 99%, HR 81, RR 14, NO FURTHER REQUESTS AT THIS TIME, CALL LIGHT WITHIN REACH. FALL PRECAUTIONS IN PLACE.
--- NOTE | 2019-01-23 23:00 | NUR ---
PT RESTING IN BED, EYES CLOSED, BREATHS EVEN, UNLABORED, REMAINS ON 3L VIA OXY MASK, O2 SAT 93%, NO REQUESTS AT THIS TIME, CALL LIGHT WITHIN REACH.
--- NOTE | 2019-01-24 00:31 | NUR ---
PT C/O 03/16 WHITEHEAD PAIN, PT GIVEN PRN TYLENOL PER EMAR, NO FURTHER REQUESTS. REMAINS ON 3L VIA OXY MASK, O2 SAT 97%, RR 12, LS CLEAR, NO C/O SOB/CP, CALL LIGHT WITHIN REACH. FALL PRECAUTIONS IN PLACE.
--- NOTE | 2019-01-24 02:15 | NUR ---
PT C/O ITCHING AND DRYNESS IN DIGNA AREA, PT GIVEN NYSTATIN PER NIO, SEE EMAR, PT REPORTED IMPROVEMENT. PT ALSO C/O NASAL CONGESTION, PRN SUDAFED GIVEN PER EMAR, NO FURTHER REQUESTS AT THIS TIME, CALL LIGHT WITHIN REACH. PT REMAINS ON 3L VIA OXY MASK, O2 SAT 99%. RR 13.
--- NOTE | 2019-01-24 02:45 | NUR ---
PT GIVEN PRN PAIN MEDICATION BY ANG HAMILTON FOR 04/16 PAIN, NO FURTHER REQUESTS. CALL LIGHT WITHIN REACH.
--- NOTE | 2019-01-24 04:00 | NUR ---
PT RESTING IN BED AT BEDSIDE, ON 3L VIA OXY MASK, NO REQUESTS AT THIS TIME, CALL LIGHT WITHIN REACH. FALL PRECAUTIONS IN PLACE. VSS, O2 SAT 95% RR 15
--- NOTE | 2019-01-24 05:00 | NUR ---
PT RESTING IN BED, EYES CLOSED, BREATHS EVEN, PT'S OXYGEN TITRATED UP TO 6L VIA OXY MASK WHILE PT IS SLEEPING, O2 SAT 93%, RR 15, NO REQUESTS AT THIS TIME, NO C/O SOB/CP, CALL LIGHT WITHIN REACH.
--- NOTE | 2019-01-24 08:33 | NUR ---
PATIENT WAS TALKATIVE AND APPROPRIATE THIS MORNING. PATIENT SAID "FOOD DOES NOT TASTE VERY GOOD TODAY" AND WAS SOB SITTING ON THE EDGE OF BED. PATIENT MENTIONED THAT "I HAVE TO WATCH HOW MUCH WATER I DRINK THE REST OF MY LIFE." PATIENT IS SAID HIS NECK WAS AN 8/10 PAIN AND THAT HE WANTED TO TAKE HIS NARCOTICS NOW. PATIENT TOOK PAIN MEDICATIONS AND IS SITTING IN THE CHAIR WITH FEET ELEVATED WITH CALL LIGHT IN REACH. PATIENT HAD NO FURHTER NEEDS OR REQUESTS.
--- NOTE | 2019-01-24 09:47 | NUR ---
PATIENT IS SITTING IN CHAIR WITH FEET ELEVATED. PATIENT RECEIVED EDUCATION ON SALT INTAKE AND DIET CHANGES ONCE DISCHARGED. PATIENT WAS RECEPTIVE TO THIS INFORMATION. PATIENT WAS DECREASED FROM 3L OXYGEN TO 2L OXYGEN VIA OXYMASK. PATIENT IS TOLERATING WELL WITH O2 LEVELS AT 95%. PATIENT DENIES UNTOLERABLE PAIN AND SOB.
--- NOTE | 2019-01-24 12:49 | NUR ---
PT SITTING UP ON SIDE OF BED. FINISHED LUNCH. DID NOT DRINK SODA IT WAS BAD. DECLILNED NEW ONE.
--- NOTE | 2019-01-24 13:11 | NUR ---
PT SITTING ON SIDE OF BED, LOOKING OUT WINDOW. THANKED ME FOR COMING IN, AND EXPRESSED FRUSTRATION AT HIMSELF FOR WHAT HE FEELS IS "HIS FAULT" BEING HERE AGAIN. HE STATED HE HAS TO DO A BETTER JOB OF PAYING ATTENTION TO WHAT HE IS EATING AND DRINKING. GAVE ENCOURAGEMENT AND BLESSING. WILL FOLLOW NEEDED.
--- NOTE | 2019-01-24 14:03 | NUR ---
PATIENT IN CHAIR WATCHING TV. FRESH WATER GIVEN. CALL LIGHT IN REACH. NO FURTHER NEEDS AT THIS TIME.
--- NOTE | 2019-01-24 14:56 | NUR ---
PT SITTING UP IN CHAIR LOOKING OUT WINDOW. ADMINISTERED MEDS. PT DENIES CONCERNS OTHER THAN WAITING FOR DINNER SO HE CAN HAVE MORE WATER.
--- NOTE | 2019-01-24 15:29 | NUR ---
CONSULT RECEIVED FOR CHF DIET EDUCATION. PATIENT STATES HIS IS ADAMANT ABOUT A LOW-SODIUM DIET AT HOME. HE REALLY WATCHES HIS INTAKE OF FOOD AND FLUID. HE LOVES FRUIT BUT KNOWS IT CONTRIBUTES FLUID SO HE DOESN'T EAT MUCH NOW. HE CAN ONLY TOLERATE ABOUT 1500 ML FLUID DAILY. AFTER HIS HEART ATTACK IS WHEN HE AND HIS HONED IN ON A LOW-SODIUM DIET. HE HAS NO QUESTIONS AT THIS TIME. NO INFO PROVIDED AT THIS TIME. WILL REMAIN AVAILABLE IF NEEDED.
--- NOTE | 2019-01-24 16:22 | NUR ---
Administered prn oxy after talking to DR GONZALEZ REGARDING ADMINISTRATION TIMES.
--- NOTE | 2019-01-24 18:03 | NUR ---
PATIENT UP TO BATHROOM FOR SHOWER, IN ROOM. NEW GOWN PROVIDED. CALL LIGHT IN REACH. NO FURTHER NEEDS AT THIS TIME.
--- NOTE | 2019-01-24 18:08 | NUR ---
PT TRANSFERRED FROM CCU THIS AFTERNOON. INDEPENDENT IN ROOM. 2-3L NC. TOLERAING FLUID RESTRICTION. PAIN MED FREQ INCREASED FROM BID TO Q6 FOR CHRONIC PAIN. LEGS ELEVATED MOST OF DAY.
--- NOTE | 2019-01-24 19:45 | NUR ---
REPORT RECEIVED FROM DAY SHIFT RNANNE MARIE. PT SITTING IN CHAIR, O2 IN PLACE. PT ALERT AND ORIENTED, ANSWERING QUESTIONS APPROPRIATELY. NO REQUESTS OR CONCERNS AT THIS TIME. CALL LIGHT IN REACH.
--- NOTE | 2019-01-24 20:11 | NUR ---
PT ALERT, SETTING IN RECLINER. PM MEDICATIONS GIVEN. ASSESSMENT COMPLETE. PT C/O SINUS PRESSURE AND HEADACHE, PRN MEDICATION GIVEN. QUARTER-SIZED PRESSURE ULCER NOTED ON PT'S LEFT HEEL. PT STATES IT IS AN OLD WOUND. WOUND IS NOT OPEN. PT REFUSED HEEL PROTECTORS. PT REMAINS COMPLIANT WITH FLUID RESTRICTION. NO OTHER REQUESTS AT THIS TIME. CALL LIGHT IN REACH.
--- NOTE | 2019-01-24 23:00 | NUR ---
PT RESTING IN BED WITH EYES CLOSED. RR EVEN AND UNLABORED. O2 3L/NC IN PLACE. CALL LIGHT IN REACH.
--- NOTE | 2019-01-25 01:15 | NUR ---
PT AWAKE SITTING ON THE SIDE OF THE BED C/O 8/10 NECK AND BACK PAIN. MEDICATED WITH PRN PAIN MEDICATION. ASSESSMENT COMPLETE. O2 3L/NC IN PLACE. PT DENIES OTHER NEEDS AT THIS TIME. CALL LIGHT IN REACH.
--- NOTE | 2019-01-25 04:51 | NUR ---
PT UP TO THE BR INDEPENDENTLY TO VOID 350 ML YELLOW URINE. INCREASED RR NOTED WITH EXERTION. 3L/NC IN PLACE, RR 22. PT STATES "THAT HAPPENS IF I LAY DOWN TOO LONG". PT DENIES NEEDS AT THIS TIME. CALL LIGHT IN REACH.
--- NOTE | 2019-01-25 06:14 | NUR ---
PT RESTED WELL THROUGHOUT THE NIGHT. INDEPENDENTLY AMBULATES TO THE BR. PT C/O 8/ PAIN. MEDICATED WITH PRN PAIN MEDICATIONS. PT REMAINS COMPLIANT WITH 1500 ML FLUID RESTRICTION. SOME SOB NOTED WITH EXERTION. O2 SATS ON 3LNC REMAIN WNL.
--- NOTE | 2019-01-25 07:30 | NUR ---
REPORT RECEIVED FROM ALFONSO SMITH. PT SITTING UP IN BED TALKING. REPORTS THE FINISHED HARDWARE ERECTOR HAD GIVEN HIM TOO MUCH WATER AND HE DRANK HALF OF IT BEFORE HE NOTICED. WILL EDUCATE HER ON IMPORTANCE OF FLUID RESTRICTIONS. ADVISED PT TO GO SLOWLY WITH FLUIDS HE WILL HAVE LESS FOR THE REST OF THE DAY.
--- NOTE | 2019-01-25 08:07 | NUR ---
PATIENT SITTING ON SIDE OF BED FOR BREAKFAST. CALL LIGHT IN REACH. NO FURTHER NEEDS AT THIS TIME.
--- NOTE | 2019-01-25 10:15 | NUR ---
ADMINISTERED LASIX ONE HOUR POST OTHER DIURETIC. PT SITTING ON SIDE OF BED WITH LEGS ELEVATED OFF AND ON. VS STABLE.
--- NOTE | 2019-01-25 12:42 | NUR ---
PT SITTING ON SIDE OF BED, LOOKING OUT WINDOW-HIS USUAL SPOT. PT SAID HE SLEPT REALLY WELL LAST NIGHT. HE IS READY TO GO-HE MENTIONED THAT HE HOPES "THEY" ARE. RT IN TO GIVE PT BREATHNG TREATMENT, WILL FOLLOW NEEDED
--- NOTE | 2019-01-25 14:15 | NUR ---
PATIENT IN CHAIR WATCHING TV. FRESH WATER GIVEN. CALL LIGHT IN REACH. NO FURTHER NEEDS AT THIS TIME.
--- NOTE | 2019-01-25 17:38 | NUR ---
PT WALKED IN AN WITH ACTIVE DIRECTORY SPECIALIST. GAVE PT ICE PER REQUEST WHICH SHE GAVE TO PT, THEN BOTH DENIED. ADMINISTERED SCHEDULED MEDS.
--- NOTE | 2019-01-25 18:43 | NUR ---
PATIENT IN CHAIR WATCHING TV. FRESH WATER GIVEN. PATIENT ASKING FOR PAIN MEDS, RN NOTIFIED. CALL LIGHT IN REACH. NO FURHTER NEEDS AT THIS TIME.
--- NOTE | 2019-01-25 19:30 | NUR ---
CHARGE NURSE ROUNDS. PT IN CHAIR, WATCHING TV. DENIES NEEDS.
--- NOTE | 2019-01-25 19:57 | NUR ---
REPORT RECEIVED FROM DAY SHIFT RNANNE MARIE. PT IN RECLINER WATCHING TV. O2 3LNC IN PLACE, RR EVEN AND UNLABORED. PT ALERT AND ORIENTED. PT DENIES NEEDS AT THIS TIME. CALL LIGHT IN REACH.
--- NOTE | 2019-01-25 21:00 | NUR ---
PT SITTING UP ON THE SIDE OF THE BED. LAB IN THE ROOM. PM MEDICATIONS GIVEN WITHOUT DIFFICULTY. PRN PAIN MED GIVEN FOR C/O 8/10 BACK AND LEG PAIN. ASSESSMENT COMPLETE. PT HAS NO OTHER REQUESTS AT THIS TIME. CALL LIGHT IN REACH.
--- NOTE | 2019-01-25 21:30 | NUR ---
PATIENT IS ONLY ALLOWED ANOTHER 50 ON HIS FR. PATIENT HAS MEDICATIONS DUE THIS EVENING. SPOKE WITH MD. PATIENTS FR INCREASED TO 1600CC/DAY. ORDER PLACED INTO [employer]. EDUCATED PATIENT ON INCREASE OF FLUID RESTRICTION AND THE IMPORTANCE OF BEING COMPLIANT WITH HIS FR. PATIENT VERBALIZED UNDERSTANDING. NO FURTHER NEEDS NOTED. CALL LIGHT IN REACH.
--- NOTE | 2019-01-25 23:07 | NUR ---
SPOT CHECKED PATIENTS OXYGEN SATURATION. PATIENT IS 94% ON 1L VIA NC. PATIENT IS RESTING IN BED WITH EYES CLOSED, RR 17. CALL LIGHT IN REACH.
--- NOTE | 2019-01-26 00:36 | NUR ---
PATIENTS OXYGEN SATURATION CHECKED. PATIENT IS 96% ON 1L VIA NC. PATIENT IS RESTING IN BED WITH EYES CLOSED, RR 17. PATIENT TITRATED TO RA. CALL LIGHT IN REACH.
--- NOTE | 2019-01-26 01:58 | NUR ---
PATIENT IS SITTING UP ON THE EDGE OF THE BED. PATIENT REMAINS ON RA OXYGEN SATURATION IS 97%. PATIENT GIVEN PRN TYLENOL FOR A WHITEHEAD. PATIENT DENIES ANY FURTHER NEEDS. CALL LIGHT IN REACH.
--- NOTE | 2019-01-26 02:26 | NUR ---
PT RESTING IN BED WITH EYES CLOSED. SPOT CHECKED RA O2 SATS. NOTED TO BE 65%. PLACED PT ON 2LNC SATS UP TO 95%. PT ASYMPTOMATIC, AWAKENS EASILY. STATES HE ALWAYS WEARS OXYGEN AT NIGHT BUT TRIES TO GET AWAY FROM IT DURING THE DAY.
--- NOTE | 2019-01-26 05:28 | NUR ---
PT RESTED WELL THROUGHOUT THE NIGHT. PRN PAIN MEDICATION GIVEN X 2. MD ORDERED TO TITRATE O2 OFF LAST NOC. O2 SPOT CHECK AT 0230 65% PLACED PT ON 2L 02 SATS UP TO 95%. PT ASYMPTOMATIC, AWOKE EASILY. FLUID RESTRICTION INCREASED TO 1600 ML, PT REMAINED WITHIN HIS LIMIT. RN AND STUDENT RN CONTINUE TO PROVIDE EDUCATION REGARDING FLUID RESTRICTION AND PT'S DIAGNOSES.
--- NOTE | 2019-01-26 06:07 | NUR ---
PT GIVEN 200 ML ICE WATER, RE-EDUCATED PT THE REASON FOR FLUID RESTRICTION. PT VERBALIZES UNDERSTANDING. CALL LIGHT IN REACH.
--- NOTE | 2019-01-26 07:29 | NUR ---
REPORT RECIEVED. PT IS UP AND DRESSED IN ROOM, IN GOOD SPIRITS, STATES HE IS "FEELING" BETTER THIS AM. DENIES ANY NEEDS. LOOKING FORWARD TO BREAKFAST.
--- NOTE | 2019-01-26 08:30 | NUR ---
ATE 100% OF BREAKFAST, UP ABOUT ROOM, IN GOOD SPIRITS, MAINTAING OXIMETER >90% ON RA. DR GONZALEZ GOING IN TO SEE PT.
--- NOTE | 2019-01-26 10:30 | NUR ---
NEW MED ORDERS NOTED AND ADMINISTERED. PT SITTING UP DRESSED TALKING WITH PASTOR CALVILLO.
--- NOTE | 2019-01-26 13:03 | NUR ---
PT REPORTS PAIN 8/10 AT THIS TIME NECK AND BACK. PT GIVEN 5MG PO OXYCODONE PRN AT THIS TIME.
--- NOTE | 2019-01-26 13:11 | NUR ---
PT WAS KNEELING ON COUCH, LOOKING OUT THE WINDOW. I JOINED HIM, AND HAD QUITE A CONVERSATION. PT ADMITTED HOW MUCH STRESS HAS PLAYED A ROLE IN NEGATIVELY IMPACTING HIS HEALTH. HE ALSO MENTIONED HOW HIS SMOKING, DRINKING AND WHAT HE SAID WAS A POOR DIET HAVE ALL CONTRIBUTED. HE LOVES TO HAVE A BIG GLASS OF ICE WATER AND INDULGE ALL DAY LONG. HE NOW CANNOT DO THAT-FLUID RESTRICTIONS ARE VERY DIFFICULT FOR HIM TO ACCEPT. HE SAID HE IS NOT READY TO GO YET. HE HAS G.KIDS AND A DAUGHTER TO WALK DOWN THE [place] THIS SUMMER. PT ALSO ADMITTED HE STRUGGLES WITH RELATED PTSD. LET PT VENT, THEN PT REQUESTED PRAYER. WILL CONTINUE TO FOLLOW NEEDED
--- NOTE | 2019-01-26 14:23 | NUR ---
PATIENT IS SITTING ON THE EDGE THE BED. VISITER IN ROOM. CALL LIGHT IN REACH. NO FURTHER NEEDS AT THIS TIME.
--- NOTE | 2019-01-26 14:30 | NUR ---
PT STATES HE HAS HAD A LARGE BM AND IS FEELING MUCH BETTER. DOING WELL WITH FLUID RESTRITION, RESTING ON BED AT THIS TIME.
--- NOTE | 2019-01-26 17:54 | NUR ---
PT IS UP ABOUT ROOM INDEP TODAY, BREATHING MUCH EASIER, ONLY TO USE O2 @ NOC, DOING WELL WITH 1600ML FLUID RESTRICTION WITH ENCOURAGEMENT. MEDICATED X1 FOR BACK PAIN. GOOD APPETITE.
--- NOTE | 2019-01-26 21:29 | NUR ---
VITALS AND I&OS DONE AND CHARTED. BEDSIDE TABLE AND CALL LIGHT IN REACH. PT NEEDS NOTHING AT THIS TIME.
--- NOTE | 2019-01-26 21:31 | NUR ---
NOTIFIED DR GONZALEZ OF PT'S BP.
--- NOTE | 2019-01-26 21:42 | NUR ---
ASSESSED PT AND ADMINISTERED EVENING MEDICATIONS. PT REPORTS PAIN AT 6/10 BUT STATES THIS IS NORMAL AND TOLERABLE FOR HIM. HE WALKED IN THE HALLS THIS EVENING. PT WEARS O2 AT NIGHT. HE DENIES NEEDS AT THIS TIME. CALL LIGHT IS WITHIN REACH.
--- NOTE | 2019-01-26 22:26 | NUR ---
PT IS RESTING WITH EYES CLOSED, RESPIRATIONS ARE EVEN AND NONLABORED ON 02. CALL LIGHT IS CLOSE.
--- NOTE | 2019-01-26 23:37 | NUR ---
PT CALLED WITH 8/10 PAIN. ADMINISTERED 2ND OXYCODONE. PT DENIES FURTHER NEEDS AT THIS TIME. URINAL IS EMPTIED. CALL LIGHT IS CLOSE.
--- NOTE | 2019-01-27 01:54 | NUR ---
PT IS RESTING WITH EYES CLOSED, RESPIRATIONS ARE EVEN AND NONLABORED. CALL LIGHT IS CLOSE.
--- NOTE | 2019-01-27 02:45 | NUR ---
PT IS AWAKE IN BED, HE REQUESTED TYLENOL FOR A HEADACHE. HE DENIES SOB, AND FURTHER NEEDS CALL LIGHT IS WITHIN REACH.
--- NOTE | 2019-01-27 04:36 | NUR ---
PT IS RESTING WITH EYES CLOSED, RESPIRATIONS ARE EVEN AND NONLABORED. CALL LIGHT IS WITHIN REACH.
--- NOTE | 2019-01-27 05:05 | NUR ---
PT IS RESTING WITH EYES CLOSED, RESPIRATIONS ARE EVEN AND NONLABORED. CALL LIGHT IS WITHIN REACH.
--- NOTE | 2019-01-27 05:06 | NUR ---
PT SLEPT ON AND OFF THROUGHOUT THE NIGHT. HE AWOKE OFTEN WITH CHRONIC PAIN OR A HEADACHE. HIS IV IS SL AND HE IS ON A 1600 FLUID RESTRICTION WITH HEART HEALTHY DIET. HE HAD LIQUID BMS THROUGH THE NIGHT. HE IS ON O2 2-3 L AT NIGHT BUT DOES WELL ON RA DURING THE DAY. HE AMBULATES SAB WITH FWW AND IS INDEPENDENT AT TIMES. PT DENIES SOB. HE TAKES OXYCODONE AND TYLENOL FOR CHRONIC PAIN.
--- NOTE | 2019-01-27 06:34 | NUR ---
ADMINISTERED OXYCODONE FOR 8/10 PAIN. PT DENIES FURTHER NEEDS AT THIS TIME. CALL LIGHT IS CLOSE.
--- NOTE | 2019-01-27 07:15 | NUR ---
REPORT RECEIVED FROM MANAGER WOMEN RN. PT SITTING AT SIDE OF BED. DENIES SOB. RESPIRATIONS EQUAL AND NONLABORED. DENEIS NEEDS. CALL LIGHT IN REACH.
--- NOTE | 2019-01-27 09:42 | NUR ---
CHANGED PATIENT'S BED LINENS. PATIENT IS DRESSED SITTING UP IN HIS CHAIR. SLEEPING. WILL COME BACK AND ASK HIM IF HE WOULD LIKE TO TAKE A SHOWER.
--- NOTE | 2019-01-27 14:11 | NUR ---
PT WITH LOW BP. DR GONZALEZ NOTIFIED. OKAY'D TO ADMINSTER TORSEMIDE. NO NEW ORDERS.
--- NOTE | 2019-01-27 14:29 | NUR ---
DR. GONZALEZ IN TO SEE PATIENT.
--- NOTE | 2019-01-27 14:53 | NUR ---
PT OUT AMBULATING THE HALLS. PT ABLE TO DO 2 LAPS WITH NO BREAKS. BACK TO CHAIR. DENIES SOB WITH ACTIVITY. CALL LIGHT IN REACH.
--- NOTE | 2019-01-27 15:42 | NUR ---
PATIENT IS WAITING FOR HIS TO BRING UP CLEAN CLOTHES AND HIS OWN SHAMPOO AND BODY WASH.
--- NOTE | 2019-01-27 19:45 | NUR ---
AWAKE, UP IN CHAIR, C/O MILD PAIN, WILL MEDICATED
--- NOTE | 2019-01-27 20:11 | NUR ---
UP IN CHAIR, ROOM AIR, NO C.O SOB. WALKING IN ROOM. C/O 8/10 NECK/SHOULDERS AREA PAIN, MEDICATED WITH OXYCODONE 10MG. COOP WITH ASSESSMENT AND 1600 FLUID RESTRICTION. PHUC PATENT
--- NOTE | 2019-01-27 22:35 | NUR ---
ADMINISTERED TYLENOL FOR 8/10 PAIN. PT DENIES FURTHER NEEDS AT THIS TIME. CALL LIGHT IS WITHIN REACH.
--- NOTE | 2019-01-28 00:26 | NUR ---
resting, no further c/o pain. On room air. call light at bedside.
--- NOTE | 2019-01-28 01:30 | NUR ---
MEDICATED WITH OXYCONTIN 10MG PO C/O 02/14 NECK/SHOULDERS CHRONIC PAIN. SITTING EDGE OF BED. CONTIUES ON FLUIDS RESTRICTION. VOIDING CLEAR YELLOW URINE. CALL LIGHT AT BEDSIDE.
--- NOTE | 2019-01-28 04:49 | NUR ---
PT C/O 8/10 H/A. NECK, SHOULDERS PAIN, DECLINES ICE PACKS. MEDICATED WITH TYLENOL 650MG PO. SITTING EDGE OF BED, TOLERATING FLUID RESTRICTION, STANDING WEIGHT 194#, CALL LIGHT AT BEDSIDE
--- NOTE | 2019-01-28 04:50 | NUR ---
CURRENTLY AWAKE, SITTING EDGE OF BED, CONTINUES TO C/O [id number] PAIN, HAS BEEN MEDICATED WITH TYLENOL X2 AND OXYCONTIN 10MG PO X2 WITH FAIR TO GOOD RELIEF. VOIDING QS, CONTINUES ON FLUID RESTRICTION. TOLERATING WELL, INDEPENDEDNT/1PAFWW , WALKING IN ROOM EARLIER. NO REQUESTS, CALL LIGHT AT BEDSIDE, PT EXPECTS TO BE DC LATER TODAY.
--- NOTE | 2019-01-28 07:24 | NUR ---
REPORT RECEIVED FROM SAND BLASTER RN. PT UP IN CHAIR. RESPIRATIONS EQUAL AND NONLABORED. CALL LIGHT IN REACH. DENEIS NEEDS.
--- NOTE | 2019-01-28 09:33 | NUR ---
ASSESSMENT COMPLETED. LUNGS CLEAR. DENIES SOB. NO EDEMA. VITALS TAKEN AND WNL. MEDICAITONS ADMINISTERED. CALL LIGHT IN REACH. 200ML PROVIDED FOR FLUIDS. REPORTS PAIN 05/17. PRN PAIN MEDICATION GIVEN. DENEIS FURTHER NEEDS.
--- NOTE | 2019-01-28 10:18 | NUR ---
PT OUT AMBULATING IN HALLS.
[2019-01-28] MEDS ORDERED: LISINOPRIL2.5 MG PO (10:46)
[2019-01-28] MEDS ORDERED: METOPROLOL SUCC25 MG PO (10:46)
[2019-01-28] MEDS ORDERED: TORSEMIDE10 MG PO (10:47)
[2019-01-28] MEDS ORDERED: POTASSIUM CHLO10 ME1 PO (10:47)
[2019-01-28] MEDS ORDERED: METOLAZONE2.5 MG PO (10:48)
[2019-01-28] MEDS ORDERED: DEMADEX20 MG PO (11:38)
--- NOTE | 2019-01-28 11:50 | NUR ---
PATIENT SITTING UP IN CHAIR. FINAL VITAL SIGNS WERE OBTAINED PRIOR TO DISCHARGE FROM THE UNIT.
--- NOTE | 2019-01-28 12:46 | NUR ---
ANNA MCKEON CALLED AT PHONE NUMBER [phone] TO REMIND PT TO TAKE ORAL POTASSIUM 30MeQ DOSE THAT WAS DUE AT 1200 AND TORSEMIDE DUE AT 1300. ALL QUESTIONS ANSWERED.
--- NOTE | 2019-01-28 13:14 | NUR ---
PT SITTING IN CHAIR-DRESSED AND READY HE SAYS TO GO. PT MENTIONED THAT HE SLEPT REAL WELL LAST NIGHT AND WITHOUT O2. EXTENDED A BLESSING, THANKED PT FOR HIS SERVICE. WILL FOLLOW NEEDED
== END 2019-01-28 12:00 | disposition home or self-care (01) | DRG 291 ==
LOC: ED 19:52 → CCU 22:07 → MS 01-24 11:05
PROVIDERS: ADMIT Student in an Organized Health Care Education/Training Program
DX: I50.23 Acute on chronic systolic (congestive) heart failure (principal); J96.21 Acute and chronic respiratory failure with hypoxia; N17.9 Acute kidney failure, unspecified; N18.4 Chronic kidney disease, stage 4 (severe); I25.10 Atherosclerotic heart disease of native coronary artery without angina pectoris; M46.94 Unspecified inflammatory spondylopathy, thoracic region; M46.92 Unspecified inflammatory spondylopathy, cervical region; I25.2 Old myocardial infarction; G89.4 Chronic pain syndrome; K21.9 Gastro-esophageal reflux disease without esophagitis; J44.9 Chronic obstructive pulmonary disease, unspecified; D72.829 Elevated white blood cell count, unspecified; K59.00 Constipation, unspecified; E78.5 Hyperlipidemia, unspecified; D63.1 Anemia in chronic kidney disease; Z99.81 Dependence on supplemental oxygen; Z95.5 Presence of coronary angioplasty implant and graft; Z95.810 Presence of automatic (implantable) cardiac defibrillator; Z79.02 Long term (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 of antithrombotics/antiplatelets; Z79.82 Long term (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; Z79.891 Long term (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 of opiate analgesic; Z79.899 Other long term (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
CPT/HCPCS: 36415; 36600; 71045; 80048; 80053; 80069; 81001; 82803; 83605; 83735; 83880; 84484; 85025; 85610; 85730; 87040; 87899; 93005; 93010; 94640; 94660; 96366; 96372; 96374; 96375; 96376; 99285-25; G0378; J0692; J0696; J1650; J1815; J1940; J7060

== ENCOUNTER 2019-02-03 21:13 | Observation (INO) | payer OTHER ==
[~2019-02-03 21:13] MED LIST changes: +DEMADEX20 MG PO; +LISINOPRIL2.5 MG PO; +METOLAZONE2.5 MG PO; +POTASSIUM CHLO10 ME1 PO
== END 2019-02-04 17:10 | disposition home or self-care (01) ==
LOC: MS 21:13
PROVIDERS: ADMIT Student in an Organized Health Care Education/Training Program
DX: N17.9 Acute kidney failure, unspecified (principal); M46.92 Unspecified inflammatory spondylopathy, cervical region; M46.94 Unspecified inflammatory spondylopathy, thoracic region; I25.2 Old myocardial infarction; I25.10 Atherosclerotic heart disease of native coronary artery without angina pectoris; E78.5 Hyperlipidemia, unspecified; I12.9 Hypertensive chronic kidney disease with stage 1 through stage 4 chronic kidney disease, or unspecified chronic kidney disease; N18.9 Chronic kidney disease, unspecified; J44.9 Chronic obstructive pulmonary disease, unspecified; K21.9 Gastro-esophageal reflux disease without esophagitis; G89.4 Chronic pain syndrome; D63.1 Anemia in chronic kidney disease; I25.9 Chronic ischemic heart disease, unspecified; I50.22 Chronic systolic (congestive) heart failure; Z95.5 Presence of coronary angioplasty implant and graft; Z95.810 Presence of automatic (implantable) cardiac defibrillator; Z79.02 Long term (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 of antithrombotics/antiplatelets; Z79.82 Long term (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; Z79.891 Long term (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 of opiate analgesic; Z79.899 Other long term (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
CPT/HCPCS: 36415; 80048; 82565; 83735; 85025; 96361; G0378; G0379; J7120

== ENCOUNTER 2019-02-08 20:34 | Observation (INO) | payer OTHER ==
[~2019-02-08] VITALS: Ht 175.3 cm; Wt 88.8 kg
--- OUTSIDE RECORDS SUMMARY | ~2019-02-08 | XMS | Encounter Summary ---
Demographics + + + | Address | [address] | | | [place] [address] | + + + | Home Phone | | + + + | Preferred Language | Unknown | + + + | Marital Status | | + + + | Cheondoism Affiliation | Unknown | + + + [...] + | [place] | E[place] | [place] | | | | | [address] | | + + + + + Care Team Providers + +------+ + | Care Manager Market Research Name | Role | Phone | + +------+ + | Young Haque DO | PCP | | + +------+ + Reason for Visit + + + | Reason | Comments | + + + | Cardiac Rehab | | + + + Evaluate & Treat (Routine) + + + + + + + | Status | Reason | Specialty | Diagnoses / | Referred By | Referred To | | | | | Procedures | Contact | Contact | + + + + + + + | Authorized | Specialty | Cardiac | Diagnoses | Kacie, | [facility] | | | Services | Rehabilitatio | Coronary | Janel | | | | Required | n | artery | ADARSH Jacobs | Rehabilitatio | | | | | disease | [address] | [address] | | | | | involving | [address] | [address] [place] | | | | | [place] | [place] | [place] | | | | | coronary | [address] | [address] | | | | | artery of | Phone: | Phone: | | | | | [place] heart | [phone] | [phone] | | | | | without | Fax: | Fax: | | | | | angina | [phone] | [phone] | | | | | pectoris | | | + + + + + + + Encounter Details +--------+---------+ + + + | Date | Type | Department | Care Team | Description | +--------+---------+ + + + | 11/25/ | Office | [facility] | Carolina Randy, | Coronary artery | | 2019 | Visit | [facility] | MD [address] | disease involving | | | | REHABILITATION [address] | [place], | [place] coronary | | | | [address] [place] | [place] [address] | artery of [place] | | | | [place] [address] | [phone] | heart without angina | | | | [phone] | | pectoris (Primary | | | | | | Dx); Post PTCA | +--------+---------+ + + + Social History [...] + + documented as of this encounter Progress Jonah Cokre-Cheri Kendrick, SECOND GRADE TEACHER - 11/25/2018 1000 PDTFormatting of this note might be diff erent from the original. [facility]AC [facility]IL[facility]ATION [address] [facility] [address] Cardiac Rehab Date: 11/25/2018 Patient Information Patient Name: Bob Will Date of : 1955 Age: 63 y.o. Encounter Diagnoses Code Name Primary? I50.23 Acute on chronic systolic congestive heart failure (HCC) Yes Number of Visits Approved: 34 kx Taken Medications Today? Yes Any Changes in Medications? No Yes, Terosomide Any Problems to Report? No Got tired real quick, Stopped exercise. Patient is on a fluid restriction, 400cc of H2O and called it a day. Ventricular paced rhythm without ectopy. Pre O2: 98%, SBP prior to exercise 96/58; during e xercise 88/40. Post fluid intake 90/40. Compliant with medications and therapeutic lifestyle changes. Continue monitored exercise. Any abnormal vital signs or rhythm strips will be reported in progress note. Electronically signed by: Cheri Harvey RRT, 11/25/2018 12:48 Patient Name: Bob Will/: 1955/ ly signed by Cheri Harvey RRT at 11/25/2018 12:48 PDTdocumented in this encou nter Plan of Treatment +--------+ + + + + | Date | Type | Specialty | Care Team | Description | +--------+ + + + + | 03/08/ | Office | Nephrology | [facility], | | | 2018 | Visit | | ADARSH [address] | | | | | [address] , [facility] | | | | | | [address] | | | | | | [phone] | | | | | | | | +--------+ + + + + | 03/24/ | Procedure | Cardiology | | | | 2018 | visit | | | | +--------+ + + + + | 03/24/ | Office | Cardiology | Jenny, | | | 2018 | Visit | | ADARSH Santo [address] | | | | | | [address] [place], | | | | | | [place] [address] | | | | | | [phone] | | | | | | | | +--------+ + + + + documented as of this encounter Visit Diagnoses + + | Diagnosis | + + | Coronary artery disease involving [place] coronary artery of [place] heart without | | angina pectoris - Primary | + + | Post PTCA Postsurgical percutaneous transluminal coronary angioplasty status | + + documented in this encounter"
--- OUTSIDE RECORDS SUMMARY | ~2019-02-08 | XMS | Encounter Summary ---
Demographics + + + | Address | [address] | | | [place] [address] | + + + | Home Phone | | + + + | Preferred Language | Unknown | + + + | Marital Status | | + + + | Denominational Affiliation | NRP | + + + | Race | White | + + + | Ethnic Group | Not or | + + + Author + + + | Author | [facility] | + + + | Organization | [facility] | + + + | Address | Unknown | + + + | Phone | Unavailable | + + + Support + + + + + | Name | Relationship | Address | Phone | + + + + + | [place] Will | ECON | [address] | | | | | [place] [address] | | + + + + + Care Team Providers + +------+ + | Care Dramatic Reader Name | Role | Phone | + +------+ + | Chato Matson MD | PCP | | + +------+ + Reason for Visit AUTH/CERT +--------+--------+ + + + + | Status | Reason | Specialty | Diagnoses / | Referred By | Referred To | | | | | Procedures | Contact | Contact | +--------+--------+ + + + + | | | | | | | +--------+--------+ + + + + Encounter Details +--------+ + + + + | Date | Type | Department | Care Team | Description | +--------+ + + + + | 10/16/ | Anesthesia | 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 | Terry Garvin, | | | 2018 | Event | at [facility] [address] [facility] | [facility] [address] | | | | | [facility] | [facility] | | | | | [facility] | [place], [place] | | | | | [place], [place] | [address] | | | | | [address] | [phone] | | | | | [phone] | | | +--------+ + + + + Anesthesia Record + + + + + | Procedure Name | Responsible | Anesthesia Start | Anesthesia Stop Time | | | Anesthesiologist | Time | | + + + + + | CAR EP STUDY | Sandie Garcia MD | 10/16/17 1048 | 10/16/17 1739 | + + + + + +----+---+ + + | Da | T | Event | Comment | | te | i | | | | | m | | | | | e | | | +----+---+ + + | 02 | 1 | Pt. Check | Prior to anesthesia start, pt. Identified, examined, chart | | /0 | 0 | | reviewed, JAYDON march, anesthetic plan made or approved by | | 9/ | 4 | | attending anesthesiologist. NPO status confirmed as appropriate | | 20 | 6 | | for procedure Preoperative evaluation: unchanged | | 18 | | | | +----+---+ + + | | 1 | Eq Check | Anesthesia machine checked Equipment verified | | | 0 | | | | | 4 | | | | | 7 | | | +----+---+ + + | | 1 | | | | | 0 | | | | | 4 | | | | | 8 | | | +----+---+ + + | | 1 | An Start | | | | 0 | | | | | 4 | | | | | 8 | | | +----+---+ + + | | 1 | Vitals | Monitors applied Vital signs checked Patient ready for anesthesia | | | 0 | Checked | | | | 5 | | | | | 3 | | | +----+---+ + + | | 1 | O2 by NC | | | | 0 | | | | | 5 | | | | | 4 | | | +----+---+ + + | | 1 | Ready | | | | 0 | | | | | 5 | | | | | 5 | | | +----+---+ + + | | 1 | Abx held | Contraindicated, or not indicated for this procedure, or already | | | 1 | Medical or | receiving antibiotics | | | 0 | Surgical | | | | 8 | Reason | | +----+---+ + + | | 1 | Incision | Begin EP study | | | 1 | | | | | 1 | | | | | 4 | | | +----+---+ + + | | 1 | O2 by FM | | | | 1 | | | | | 1 | | | | | 7 | | | +----+---+ + + | | 1 | an gilberto now | [place] | | | 1 | | | | | 4 | | | | | 9 | | | +----+---+ + + | | 1 | Quick Note | Proceeding with BiV ICD insertion | | | 2 | | | | | 2 | | | | | 0 | | | +----+---+ + + | | 1 | Quick Note | Awake and interactive | | | 2 | | | | | 2 | | | | | 8 | | | +----+---+ + + | | 1 | Abx | | | | 2 | Administere | | | | 4 | d | | | | 5 | | | +----+---+ + + | | 1 | Quick Note | Awake and interactive. No complaints | | | 3 | | | | | 0 | | | | | 0 | | | +----+---+ + + | | 1 | Quick Note | Awake and interactive | | | 3 | | | | | 1 | | | | | 5 | | | +----+---+ + + | | 1 | Quick Note | Awake and interactive | | | 3 | | | | | 2 | | | | | 9 | | | +----+---+ + + | | 1 | Quick Note | Awake and interactive | | | 3 | | | | | 4 | | | | | 6 | | | +----+---+ + + | | 1 | Quick Note | Awake and interactive | | | 4 | | | | | 0 | | | | | 0 | | | +----+---+ + + | | 1 | Quick Note | Awake and interactive | | | 4 | | | | | 1 | | | | | 5 | | | +----+---+ + + | | 1 | Quick Note | Awake and interactive | | | 4 | | | | | 2 | | | | | 9 | | | +----+---+ + + | | 1 | Quick Note | Awake and interactive | | | 4 | | | | | 4 | | | | | 5 | | | +----+---+ + + | | 1 | O2 by NC | | | | 4 | | | | | 4 | | | | | 5 | | | +----+---+ + + | | 1 | Quick Note | Awake and interactive | | | 5 | | | | | 0 | | | | | 0 | | | +----+---+ + + | | 1 | Quick Note | Awake and interactive | | | 5 | | | | | 1 | | | | | 5 | | | +----+---+ + + | | 1 | An Data Art | | | | 5 | | | | | 4 | | | | | 2 | | | +----+---+ + + | | 1 | Quick Note | Pocket formation | | | 6 | | | | | 2 | | | | | 6 | | | +----+---+ + + | | 1 | Quick Note | Awake and interactive | | | 6 | | | | | 5 | | | | | 9 | | | +----+---+ + + | | 1 | Surgery end | | | | 7 | | | | | 2 | | | | | 3 | | | +----+---+ + + | | 1 | an stop | | | | 7 | data | | | | 3 | | | | | 2 | | | +----+---+ + + | | 1 | PACU Rpt | | | | 7 | Given | | | | 3 | | | | | 9 | | | +----+---+ + + | | 1 | Anesthesia | | | | 7 | End | | | | 3 | | | | | 9 | | | +----+---+ + + +------+ | Meds | +------+ + + + | Name | Total | + + + | dexmedetomidine INF (4 mcg/mL) | 180.92 mcg | + + + | propofol INF | 128,478 mcg | + + + | midazolam | 2 mg | + + + | alfentanil | 1,000 mcg | + + + | lidocaine 2% | 60 mg | + + + | PHENYLEPHrine | 500 mcg | + + + | EPINEPHrine | 50 mcg | + + + | ceFAZolin | 4,000 mg | + + + | propofol | 40 mg | + + + | NS | 1,300 mL | + + + + + | Name | + + | O2 Flow Rate (Total Liters) | + + + + | No blood administrations on file. 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) | RN | | +--------+ + + + | Periph | 10/15/17; 1115; BARRIE PAUL, | 10/15/17 111 by | | | eral | RT (R); Left; Antecubital; 20 g; | Merrill Plasencia RN | | | IV | Positive | | | +--------+ + + + | VAD | 10/15/17; 1158; DR HAJI; Other | 10/15/17 1158 by | 10/18/17 0143 by | | Sage | (comment) (RFA IMPELLA); | Merrill Plasencia RN | Discontinued After | | a | 10/18/17; 0143 | | Discharge | +--------+ + + + | Sheath | 10/16/17; 1134; MD Tin; Right; | 10/16/17 1134 by | 10/16/17 1208 by | | /Intro | 7 Fr.; Femoral; Venous; | Keeley Izaguirre, | Keeley Izaguirre, | | andrea | 10/16/17; 1208; Per protocol | RN | RN | | Single | | | | | Lumen | | | | +--------+ + + + | Sheath | 10/16/17; 1135; MD Tin; Right; | 10/16/17 1135 by | 10/16/17 1208 by | | /Intro | Groin; 7 Fr.; Femoral; Venous; | Keeley Izaguirre, | Keeley Izaguirre | Arina mendez | 10/16/17; 1208; Per protocol | RN | RN | | Single | | | | | Lumen | | | | +--------+ + + + documented in this encounter Social History + + + +--------+ + [...] | + +---+---+ + + + | Comments: Currently denies any cravings, does [...] + + documented as of this encounter Functional Status + + + + | Functional Status | Response | Date of Assessment | + + + + | Because of a physical, mental, or emotional | No | 10/12/2017 | | condition, do you have serious difficulty | | | | doing errands alone such as visiting the | | | | doctor? | | | + + + + + + + + | Cognitive Status | Response | Date of Assessment | + + + + | Because of a physical, mental, or emotional | No | 10/12/2017 | | condition, do you have serious difficulty | | | | concentrating, remembering, or making | | | | decisions? (5 years old or older) | | | + + + + documented as of this encounter Plan of Treatment Not on filedocumented as of this encounter Visit Diagnoses Not on filedocumented in this encounter Administered Medications + +--------+ +---------+------+------+ | Medication Order | MAR | Action | Dose | Rate | Site | | | Action | Date | | | | + +--------+ +---------+------+------+ | alfentanil (ALFENTA) injection | Given | 10/16/19 | 100 mcg | | | | INTRAPROCEDURE PRN, Starting Fri | | 18 4:29 | | | | | 10/16/17 at 1113, Until 10/16/17 | | PM PST | | | | | at 1732 | | | | | | + +--------+ +---------+------+------+ +-------+ +---------+---+---+ | Given | 10/16/19 | 200 mcg | | | | | 18 4:16 | | | | | | PM PST | | | | +-------+ +---------+---+---+ | Given | 10/16/19 | 200 mcg | | | | | 18 4:05 | | | | | | PM PST | | | | +-------+ +---------+---+---+ +---+---+ | | | +---+---+ + +-------+ + +---+---+ | ceFAZolin (ANCEF) injection | Given | 10/16/19 | 2,000 mg | | | | INTRAPROCEDURE PRN, Starting Fri | | 18 4:43 | | | | | 10/16/17 at 1245, Until 10/16/17 | | PM PST | | | | | at 1732 | | | | | | + +-------+ + +---+---+ +-------+ + +---+---+ | Given | 10/16/19 | 2,000 mg | | | | | 18 12:45 | | | | | | PM PST | | | | +-------+ + +---+---+ +---+---+ | | | +---+---+ + + + + +-------+---+ | dexmedetomidine (PRECEDEX) IV | Rate/Dos | 10/16/19 | 0.1 | 2.19 | | | infusion INTRAPROCEDURE | e Change | 18 3:28 | mcg/kg/h | mL/hr | | | CONTINUOUS PRN, Starting Fri | | PM PST | r | | | | 10/16/17 at 1100, Until 10/16/17 | | | | | | | at 1732 | | | | | | + + + + +-------+---+ + + + +--------+---+ | Rate/Dose Change | 10/16/19 | 0.2 | 4.37 | | | | 18 2:51 | mcg/kg/h | mL/hr | | | | PM PST | r | | | + + + +--------+---+ | Rate/Dose Change | 10/16/19 | 0.6 | 13.11 | | | | 18 2:15 | mcg/kg/h | mL/hr | | | | PM PST | r | | | + + + +--------+---+ +---+---+ | | | +---+---+ + +-------+ +--------+---+---+ | EPINEPHrine (ADRENALIN) | Given | 10/16/19 | 10 mcg | | | | injection INTRAPROCEDURE PRN, | | 18 4:34 | | | | | Starting Thu10/16/17 at 1118, | | PM PST | | | | | Until Thu10/16/17 at 1732 | | | | | | + +-------+ +--------+---+---+ +-------+ +-------+---+---+ | Given | 10/16/19 | 5 mcg | | | | | 18 2:57 | | | | | | PM PST | | | | +-------+ +-------+---+---+ | Given | 10/16/19 | 5 mcg | | | | | 18 1:46 | | | | | | PM PST | | | | +-------+ +-------+---+---+ +---+---+ | | | +---+---+ + +-------+ +-------+---+---+ | lidocaine (XYLOCAINE MPF) 2 % | Given | 10/16/19 | 60 mg | | | | (20 mg/mL) injection | | 18 11:13 | | | | | INTRAPROCEDURE PRN, Starting Fri | | AM PST | | | | | 10/16/17 at 1113, Until 10/16/17 | | | | | | | at 1732 | | | | | | + +-------+ +-------+---+---+ +---+---+ | | | +---+---+ + +-------+ +--------+---+---+ | midazolam (VERSED) injection | Given | 10/16/19 | 0.5 mg | | | | INTRAPROCEDURE PRN, Starting Fri | | 18 2:55 | | | | | 10/16/17 at 1112, Until Thu10/16/17 | | PM PST | | | | | at 1732 | | | | | | + +-------+ +--------+---+---+ +-------+ +--------+---+---+ | Given | 10/16/19 | 0.5 mg | | | | | 18 2:14 | | | | | | PM PST | | | | +-------+ +--------+---+---+ | Given | 10/16/19 | 1 mg | | | | | 18 11:12 | | | | | | AM PST | | | | +-------+ +--------+---+---+ +---+---+ | | | +---+---+ + +-------+ +---------+---+---+ | PHENYLEPHrine 100 mcg/mL IV | Given | 10/16/19 | 100 mcg | | | | syringe INTRAPROCEDURE PRN, | | 18 4:32 | | | | | Starting 10/16/17 at 1137, | | PM PST | | | | | Until 10/16/17 at 1732 | | | | | | + +-------+ +---------+---+---+ +-------+ +---------+---+---+ | Given | 10/16/19 | 100 mcg | | | | | 18 11:52 | | | | | | AM PST | | | | +-------+ +---------+---+---+ | Given | 10/16/19 | 100 mcg | | | | | 18 11:46 | | | | | | AM PST | | | | +-------+ +---------+---+---+ +---+---+ | | | +---+---+ + + + + +--------+---+ | propofol (DIPRIVAN) injection | Rate/Dos | 10/16/19 | 25 | 13.11 | | | INTRAPROCEDURE CONTINUOUS PRN, | e Change | 18 4:16 | mcg/kg/m | mL/hr | | | Starting 10/16/17 at 1106, | | PM PST | in | | | | Until Thu10/16/17 at 1732 | | | | | | + + + + +--------+---+ + + + +-------+---+ | Rate/Dose Change | 10/16/19 | 10 | 5.24 | | | | 18 3:28 | mcg/kg/m | mL/hr | | | | PM PST | in | | | + + + +-------+---+ | Restarted | 10/16/19 | 5 | 2.62 | | | | 18 2:56 | mcg/kg/m | mL/hr | | | | PM PST | in | | | + + + +-------+---+ +---+---+ | | | +---+---+ + +-------+ +-------+---+---+ | propofol INTRAPROCEDURE PRN, | Given | 10/16/19 | 20 mg | | | | Starting 10/16/17 at 1629, | | 18 4:34 | | | | | Until 10/16/17 at 1732 | | PM PST | | | | + +-------+ +-------+---+---+ +-------+ +-------+---+---+ | Given | 10/16/19 | 20 mg | | | | | 18 4:29 | | | | | | PM PST | | | | +-------+ +-------+---+---+ +---+---+ | | | +---+---+ + + + +---+---+---+ | sodium chloride 0.9% IV | given by | 10/16/19 | | | | | infusion INTRAPROCEDURE | | 18 5:04 | | | | | CONTINUOUS PRN, Starting Fri | anesthes | PM PST | | | | | 10/16/17 at 1043, Until 10/16/17 | iology | | | | | | at 1732 | | | | | | + + + +---+---+---+ + + +---+---+---+ | given by anesthesiology | 10/16/19 | | | | | | 18 2:51 | | | | | | PM PST | | | | + + +---+---+---+ | given by anesthesiology | 10/16/19 | | | | | | 18 1:03 | | | | | | PM PST | | | | + + +---+---+---+ +---+---+ | | | +---+---+ documented in this encounter"
--- OUTSIDE RECORDS SUMMARY | ~2019-02-08 | XMS | Encounter Summary ---
Demographics + + + | Address | [address] | | | [place] [address] | + + + | Home Phone | | + + + | Preferred Language | Unknown | + + + | Marital Status | | + + + | Muslim Affiliation | Unknown | + + + | Race | Unknown | + + + | Ethnic Group | Unknown | + + + Author + + + | Author | [facility] | | | and [place] | + + + | Organization | [facility] | | | and [place] | + + + | Address | Unknown | + + + | Phone | Unavailable | + + + Support + + + + + | Name | Relationship | Address | Phone | + + + + + | [place] Will | [place] | [place] | | | | | [address] | | + + + + + Care Team Providers + +------+ + | Care [employer] Name | Role | Phone | + [...] | | | involving | [address] [place] | | | | | [place] | [place], [place] | [place], [place] | | | | | coronary | [address] | [address] | | | | | artery of | Phone: | Phone: | | | | | [place] heart | [phone] | [phone] | | | | | without | Fax: | Fax: | | | | | angina | [phone] | [phone] | | | | | pectoris | | | + + + + + + + Encounter Details +--------+---------+ + + + | Date | Type | Department | Care Team | Description | +--------+---------+ + + + | 11/18/ | Office | [facility] | Randy Figueroa, | Coronary artery | | 2019 | Visit | [facility] | [address] | disease involving | | | | REHABILITATION [address], | [place] coronary | | | | [address] [place] | [place] [address] | artery of [place] | | | | [place] [address] | [phone] | heart without angina | | | | [phone] | | pectoris (Primary | | | [...] + documented as of this encounter Progress Notes Gael Woo - 11/18/2018 1000 PDTFormatting of this note might be different from the orig inayocasta. [facility] [address] [facility] [address] Cardiac Rehab Date: 11/18/2018 Patient Information Patient Name: Bob Will Date of : 1955 Age: 63 y.o. Encounter Diagnoses Code Name Primary? I25.10 Coronary artery disease involving [place] coronary artery of [place] heart without angina pectoris Yes Z98.61 Post [...] 11/18/2018 12:19 Patient Name: Bob Will/: 1955/ ly signed by Gael Woo at 11/18/2018 12:26 PDTdocumented in this encounter Plan of Treatment +--------+ + + + + | Date | Type | Specialty | Care Team | Description | +--------+ + + + + | 03/08/ | Office | Nephrology | [facility] | Visit | | ADARSH [address] | | | | | [address] [facility] | | | | | | [address] | | | | | | [address] | | | | | | | | +--------+ + + + + | 03/24/ | Procedure | Cardiology | | | 2018 | visit | | | | +--------+ + + + + | 03/24/ | Office | Cardiology | Jenny, | | | 2019 | Visit | | ADARSH Santo [address] | | | | | | [place], | | | | | | [place] [address] | | | | | | [phone] | | | | | | | | +--------+ + + + + documented as of this encounter Visit Diagnoses + + | Diagnosis | + + | Coronary artery disease involving [place] coronary artery of [place] heart without | | angina pectoris - Primary | + + | Post PTCA Postsurgical percutaneous transluminal coronary angioplasty status | + + documented in this encounter"
--- OUTSIDE RECORDS SUMMARY | ~2019-02-08 | XMS | Encounter Summary ---
Demographics + + + | Address | [address] | | | [place] [address] | + + + | Home Phone | | + + + | Preferred Language | Unknown | + + + | Marital Status | | + + + | Orthodoxy Affiliation | NRP | + + + | Race | White | + + + | Ethnic Group | Not or | + + + Author + + + | Author | [facility] | + + + | Organization | [facility] | + + + | Address | Unknown | + + + | Phone | Unavailable | + + + Support + + + + + | Name | Relationship | Address | Phone | + + + + + | Venice Mckeon | ECON | [address] | | | | | [place] [address] | | + + + + + Care Team Providers + +------+ + | Care Supervisor Post Wave Name | Role | Phone | + +------+ + | Jamal Guerrero MD | PCP | | + +------+ + Reason for Referral Occupational Therapy (Routine) +--------+--------+ + + + + | Status | Reason | Specialty | Diagnoses / | Referred By | Referred To | | | | | Procedures | Contact | Contact | +--------+--------+ + + + + | Closed | | Occupational | Diagnoses | Bob | | | | | Therapy | ST | MD Aria | | | | | | elevation | [address] | | | | | | myocardial | [address] | | | | | | infarction | Rd | | | | | | involving | [place], [place] | | | | | | left main | [address] | | | | | | coronary | Phone: | | | | | | artery (HCC) | [phone] | | | | | | Procedures | Fax: | | | | | | | [phone] | | | | | | OCCUPATIONAL | | | | | | | THERAPY | | | | | | | REFERRAL | | | +--------+--------+ + + + + Physical Therapy (Routine) +--------+--------+ + + + + | Status | Reason | Specialty | Diagnoses / | Referred By | Referred To | | | | | Procedures | Contact | Contact | +--------+--------+ + + + + | Closed | | Physical | Diagnoses | Bob, | | | | | Therapy | ST | MD Aria | | | | | | elevation | [address] [facility] | | | | | | myocardial | [address] | | | | | | infarction | Rd | | | | | | involving | [place], [place] | | | | | | left main | [address] | | | | | | coronary | Phone: | | | | | | artery (HCC) | [phone] | | | | | | Procedures | Fax: | | | | | | PHYSICAL | [phone] | | | | | | THERAPY | | | | | | | REFERRAL | | | +--------+--------+ + + + + Rehabilitation Therapy (Routine) +--------+--------+ + + + + | Status | Reason | Specialty | Diagnoses / | Referred By | Referred To | | | | | Procedures | Contact | Contact | +--------+--------+ + + + + | Closed | | Cardiology | Procedures | Hobbs, | McMc | | | | | CONSULT TO | Gaurav | Cardiac Rehab | | | | | CARDIAC | [address] | [facility] | | | | | [facility] | [address] | [address] | | | | | | [address] | [place], | | | | | | [place], [place] | [place] [address] | | | | | | [address] | Phone: | | | | | | Phone: | [phone] | | | | | | [phone] | Fax: | | | | | | Fax: | [phone] | | | | | | [phone] | | +--------+--------+ + + + + Rehabilitation Therapy (Routine) +--------+--------+ + + + + | Status | Reason | Specialty | Diagnoses / | Referred By | Referred To | | | | | Procedures | Contact | Contact | +--------+--------+ + + + + | Closed | | Cardiology | Procedures | Anjel | Meliton | | | | | CONSULT TO | Gaurav | Cardiac Rehab | | | | | CARDIAC | [address] | [facility] | | | | | [facility] | [address] | | | | | | [address] | [place], | | | | | | [place], [place] | [place] [address] | | | | | | [address] | Phone: | | | | | | Phone: | [phone] | | | | | | [phone] | Fax: | | | | | | Fax: | [phone] | | | | | | [phone] | | +--------+--------+ + + + + Reason for Visit +--------+ + | Reason | Comments | +--------+ + | Other | left anterior descending artery occlusion, needs cabg | +--------+ + AUTH/CERT +--------+--------+ + + + + | [...] | +--------+ + + + + | 03/15/ | Hospital | [facility] [address] | Mellisa Haji, | | | 2017 - | Encounter | [address] | [address] | | | | | [id number]/S8J [facility] | [address] | | | 04/02/ | | HOSPITAL [place], | [place], [place] | | | 2016 | | [place] [address] | [address] | | | | | [phone] | [phone] | | | | | | | | | | | | Rolly Reeves, | | | | | | [address] | | | | | | [address] [place], [place] | | | | | | [address] | | | | | | [phone] | | | | | | | | | | | | Terry Ochoa MD | | | | | | [address] | | | | | | [place], [place] | | | | | | [address] | | | | | | [phone] | | | | | | | | | | | | Monika Cooper, | | | | | | Rehana Downey MD,MPH [address] | | | | | [address] | | | | | | [address] [place], [place] | | | | | | [address] | | | | | | [phone] | | | | | | | | | | | | Ariana Bose, | | | | | | DO [address] | | | | | | [address] | | | | | | [place], [place] | | | | | | [address] | | | | | | [phone] | | | | | | | | | | | | Aria Rojas MD | | | | | | [address] | | | | | | [place]a [place], | | | | | | [place] [address] | | | | | | [phone] | | | | | | | [...] Pressure | 118/85 | 04/02/2017 8:09 AM | | | | | PDT | | + + + + + | Pulse | 93 | 04/02/2017 8:09 AM | | | | | PDT | | + + + + + | Temperature | 36.4 C (97.5 F) | 04/02/2017 8:09 AM | | | | | PDT | | + + + + + | Respiratory Rate | 16 | 04/02/2017 8:09 AM | | | | | PDT | | + + + + + | Oxygen Saturation | 98% | 04/02/2017 8:09 AM | | | | | PDT | | + + + + + | Inhaled Oxygen | - | - | | | Concentration | | | | + + + + + | Weight | 86.2 kg (190 lb 0.6 | 04/02/2017 6:27 AM | | | | oz) | PDT | | + + + + + | Height | 175 cm (5' 8.9") | 03/22/2017 8:24 AM | | | | | PDT | | + + + + + | Body Mass Index | 28.15 | 03/22/2017 8:24 AM | | | | | PDT | | + + + + + documented in this encounter Discharge Summaries Aria Rojas MD - 04/02/2017 2:26 PM PDT CLINICAL HOSPITALIST DISCHARGE SUMMARY [facility] Discharging Provider: Aria Rojas MD Discharging Attending Physician: Aria Rojas MD PCP: Jamal Guerrero MD Admission Date: 03/15/2017 Discharge Date: 04/02/2017 Discharge Diagnoses: Diagnoses Principal Final Diagnosis: 1. Cardiogenic shock due to anterior STEMI 2. Acute systolic heart failure 3. Coronary artery disease 4. Left atrial appendage thrombus Additional Diagnoses: Acute kidney injury, delirium Consulting Services: 1. Cardiology 2. Cardiac Surgery 3. Advanced Heart Failure Procedures: ANY x 2 03/15 (OSH) IABP 03/15 (OSH) ECMO cannulation via LFA/LFV 03/15 RIJ CVC 03/15 ETT 03/15 L radial art line 03/16 ECMO decannulation 03/19 OGT placement under GA 03/19 R brachial midline 03/21 L cephalic midline 03/24 Angiography 03/30 Reason for Admission: Ron Mckeon is a 61-year-old man with PMH notable for 18PYH tobacco smoking, HL, HD, pre-diabetes and chronic pain admitted to the CVICU 03/15 in transfer from OSH following STEM I complicated by cardiogenic shock necessitating IABP and ECMO. Hospital Course by Problem: #CAD, s/p STEMI #ANY x 2 (LM/LAD, LCx) Pt presented to OSH with sx concerning for ACS and was found to have anterior STEMI with 99 % proximal LAD lesion and 100% distal LM occlusion, with subsequent acute dissection/thrombo sis of L main. S/p revascularization via PCI of LM/LAD and LCX, prior to transfer. Then, wit h another STEMI code 03/29, with anterior involvement on EKG with inferior reciprocal depress ions--and patient started on heparin drip with full dose aspirin, then s/p repeat angiograph y without acute finding: "patent stent traversing the LM to LAD and patent stent in the prox imal LCX,discrete thrombi seen in any vessel...overall improved flow compared to 03/15 acute angiogram." TTE 03/30 with previously seen wall motion abnormalities and improved systolic f unction. Patient was started on ASA 81mg daily, clopidogrel 75mg po daily, atorvastatin 40 mg po daily, and metoprolol succinate 25mg daily--which he will continue on discharge. Low-d ose lisinopril and ISMN were added as well. Cardiology has arranged for him to follow up ludmila miller with a local police detective in [place]. #Acute cardiogenic shock in the setting ofSTEMI #Acute systolic heart failure Pt transferred 03/15in acute cardiogenic shock requiring IABP (removed 03/16/17) and pressor s (dopamine, NE). VA ECMO started on arrival. He was rapidly weaned from pressors and IABP w as removed HD1. Decannulated 03/19. Diuresed with furosemide gtt and started on po afterload reduction and low-dose beta blockade. TTE with EF 20-25% on 03/17, and repeat TTE 03/30 with i mproved systolic function with EF 30-35%. Patient was started on maximally tolerated optima l medical therapy as per list below. He will discharge with a LifeVest for VT/VF protection in the short term as he recovers (too soon for ICD consideration). #Acute hypoxemic respiratory failure, resolved In setting of STEMI and cardiogenic shock. ETT placed 03/15, extubated uneventfully 03/22. No current O2 requirement. #JAVON thrombus Noted on MARKY in the OR during ECMO decannulation. Completedheparin gtt bridge 03/29 to the rapeutic warfarin. #AYLIN Cr elevated on admit to peak of 1.8 in the setting of cardiogenic shock, with subsequent im provement and stabilization ~1.3-1.4 with hemodynamic support and medical management. Also n oted to have elevated CK ~10K on admission, with subsequent downward trend. Good UOP. Unclea r baseline, and reviewed records from PCP today--without any recent chemistries. sCr ~1.3-4 may be his new baseline. #Hyperkalemia Noted on 03/30. Likely due some cardiac myonecrosis with STEMI last night and exacerbated by multiple meds: lisinopril, eplerenone, and also heparin all in the setting of CKD. Resolved with kayexalate. Potassium remained in high normal range with addition of low-dose lisinopr il, so he will need a repeat BMP check next week. Spironolactone contraindicated due to risk for hyperkalemia. #Toxic metabolic encephalopathy Noted in CVICU and in last couple of days on 11K. Improved today following bowel movements, decreasing lines/opiates. Likely related to prolonged hospital stay, recent critical illnes s and exacerbated by opiates, multiple attached lines, constipation. Improving. #Left groin pain Pain at prior sheath site with stitch removed 03/27. No sign of infection or hematoma, but p ossibly some candidal infection/interrigo for which he was treated with Nystatin powder. Wou nd care consult 03/26. #Anemia, normocytic Pt noted to have anemia on H&P. Hct dropped abruptly from 44 to 32 during first day at [facility] , with addition decline to 24 the following day. Received 3U PRBC Likely acute initial drop during first 2-3 days of admission was related to acute blood loss anemia in setting of IABP , ECMO, multiple lines, very frequent lab monitoring. No overt clinical e/o bleeding since a dmission. Ferritin was elevated at 400. #Thrombocytopenia, resolved Plts on the high side at admission, declined to marilee of 68 03/17 concerning for destructive +/- consumptive process in the setting of acute illness and ECMO/IABP. Mildly elevated in t he 400s at the time of discahrge - this should be followed up by his PCP as an outpatient fo r consideration of Hematology referral if it does not resolve with time. #Leukocytosis, resolved Concern for aspiration pneumonia early in admission given persistent RUL infiltrate on imag ing. S/p 7d course of Zosyn 03/22/17. Intermittently on vancomycin during that time as well, dc'd 03/20/17. BlCx and SpCx 03/18negative. #Deconditioning Pt is severely deconditioned in the setting of prolonged CVICU stay and profound illness. P T/OT consulted and recommend 24 hour skilled care on discharge. #Risk for malnutrition Very little PO intake, improving today. Previously had dobhoff feeding tube in the CVICU. N utrition consulted and calorie count done with improvement in PO. Chronic issues: #Pre-diabetes On Metformin as an outpatient. Last A1c 5.6 on 03/26, but unlikely to be accurate given rece nt RBC transfusions. Started on NPH 2U q12h, but resuming metformin as outpatient, as creat inine <1.5. #Chronic pain in the setting of degenerative disc disease and cervical stenosis (noted on o utside records). Patient on [place] 10/325 q8 as outpatient. Was receiving scheduled acetaminophen and oxycodo ne PRN in the hospital. #AAA, infrarenal Noted on abdominal arterial/venous duplex 03/17. 3.9cm. Proximal Ao and supra-renal Ao obscu red by overlying bowel gas. Will need screening for this by PCP regularly. #GERD, chronic: Resume home raniditine. Pertinent Findings: Abdominal duplex (03/17/17): An abnormal examination demonstrating a 3.9 cm infrarenal abdominal aortic aneurysm. The proximal aorta, supra renal aorta and bilateral common iliac arteries could not be visualize d secondary to overlying bowel gas. RLE duplex (03/17/17): Duplex examination of the arteries and veins of the right groin without evidence of arteria l stenosis, aneurysm, pseudo aneurysm, venous thrombosis, or arterial venous fistula. Discharge Condition: Good Disposition: SNF Discharge Physical Exam: Last 24 hour min/max Temp: 36.4 C (97.5 F) Temp Min: 36.4 C (97.5 F) Max: 36.8 C (98.2 F) Pulse: 93 Pulse Min: 87 Max: 93 Resp: 16 Resp Min: 14 Max: 20 BP: 118/85 BP Min: 88/51 Max: 118/85 SpO2: 98 % SpO2 Min: 97 % Max: 100 % Body mass index is 28.15 kg/(m^2). Gen: WDWN, NAD CV: RRR, no m/g/r appreciated Pulm: CTA bilaterally Abd: soft, NT, ND, NABS Ext: no peripheral edema Psych: Alert and oriented to person, place, and situation; affect appropriate Discharge Medications: Discharge Medication List as of 04/02/2017 2:26 PM START taking these medications Details acetaminophen 500 mg oral tablet Take 2 tablets by mouth three times daily as needed for mo derate pain. Indications: Pain, Disp-50 tablet, R-0, No Print artificial tears (dextran 70-hypromellose) 0.1-0.3 % ophthalmic drops Instill 1 drop into b oth eyes as needed (Dry Eyes). Indications: Dry Eye, Disp-15 mL, R-0, No Print atorvastatin 40 mg oral tablet Take 1 tablet by mouth once daily. Indications: myocardial i nfarction prevention, Disp-30 tablet, R-0, No Print clopidogrel 75 mg oral tablet Take 1 tablet by mouth once daily. Indications: myocardial in farction prevention, Disp-30 tablet, R-0, No Print isosorbide mononitrate CR 30 mg oral tablet extended release 24 hr Take 1 tablet by mouth o nce daily. Indications: Chronic Stable Angina Pectoris, Disp-30 tablet, R-0, No Print lisinopril 5 mg oral tablet Take 1 tablet by mouth once daily. Indications: Myocardial Infa rction, Disp-30 tablet, R-0, No Print melatonin 3 mg oral tablet Take 1 tablet by mouth once daily in the evening. Indications: D elirium, Disp-30 tablet, R-0, No Print metoprolol succinate 25 mg oral tablet extended release 24 hr Take 1 tablet by mouth once d aily. Indications: Myocardial Reinfarction Prevention, Disp-30 tablet, R-0, No Print oxyCODONE (immediate release) 5 mg oral tablet Take 1-2 tablets by mouth every four hours a s needed for severe pain. Indications: Pain, Disp-50 tablet, R-0, Print Prescription polyethylene glycol 17 gram oral powder in packet Mix 1 packet and take orally twice daily as needed (constipation). Indications: constipation, Disp-30 packet, R-0, Print Prescription QUEtiapine 25 mg oral tablet Take 0.5 tablets by mouth once daily at bedtime for 14 days. I ndications: delirium, Disp-7 tablet, R-0, Print Prescription senna-docusate 8.6-50 mg oral tablet Take 1 tablet by mouth two times daily. Hold for loose stools Indications: constipation, Disp-30 tablet, R-0, No Print warfarin 5 mg oral tablet Take 10 mg by mouth on 04/02/2017, then take 7.5 mg (one and one-h senior living tablets) daily starting 04/03/2017 Indications: JAVON thrombus, Disp-45 tablet, R-1, No Pr int CONTINUE these medications which have CHANGED or have new prescriptions Details cholecalciferol (Vitamin D3) (VITAMIN D3) 1,000 unit oral tablet Take 1 tablet by mouth onc e daily. Indications: Vitamin D Deficiency, Disp-30 tablet, R-0, No Print CONTINUE these medications which have NOT CHANGED Details Aspirin 81 mg Oral Tablet Take 81 mg by mouth once daily. , Historical Med metFORMIN 500 mg oral tablet Take 500 mg by mouth two times daily., Historical Med ranitidine 300 mg oral tablet Take 300 mg by mouth once daily. Indications: Heartburn, Hist orical Med STOP taking these medications amLODIPine 10 mg oral tablet Comments: Reason for Stopping: chlorthalidone 25 mg oral tablet Comments: Reason for Stopping: ergocalciferol 50,000 unit oral capsule Comments: Reason for Stopping: gabapentin 300 mg oral capsule Comments: Reason for Stopping: HYDROcodone-acetaminophen 10-325 mg oral tablet Comments: Reason for Stopping: metoprolol tartrate 50 mg oral tablet Comments: Reason for Stopping: naloxone 0.4 mg/mL injection solution Comments: Reason for Stopping: Omeprazole 20 mg Oral Tablet, Delayed Release (E.C.) Comments: Reason for Stopping: potassium chloride SR 10 mEq oral tablet,ER particles/crystals Comments: Reason for Stopping: simvastatin 20 mg oral tablet Comments: Reason for Stopping: traMADol 50 mg Oral Tablet Comments: Reason for Stopping: Allergies: Allergies No Known Allergies Discharge Instructions: Additional Instructions: Code Status for Facility Status: Full Code Condition on Discharge Good Discharge Follow Up - Facility MD to follow Facility MD to follow patient and manage warfarin. Vital Signs Per policy PPD for Facility Administer PPD upon arrival Weigh Patient Daily Weigh yourself daily and keep a record of your weight. Diet Low Sodium, Low Cholesterol Sodium 2 gm - Choose foods that have low to moderate sodium levels. You should also restric t your fluid intake to 2 liters daily. Activity No activity restrictions - advance as tolerated OTHER DISCHARGE ORDERS & INSTRUCTIONS Please check BMP and INR on Thursday, 04/06, with results to facility MD. Discharge Placement Facility/Agency Selected? Address Phone Number Fax Number [facility] Yes [address] [place] [address] Medina Roger RN 04/02/2017 11:31 Medina Roger RN, 04/02/2017 11:28 AM: Spoke with Latricia, 7 day auth # [id number] has been provided. Contacted Tanisha at facility , arranging anticipated medicaid transport by stretcher at 2 pm today. Spoke with patient and souse concerning dc; they are both in agreement. Medina Roger, RN, 04/02/2017 9:20 AM: Contacted Latriciabettina Landry [phone] referencing auth# for SNF placement. Medina Roger RN, 04/01/2017 11:42 AM: Spoke with Malathi [phone], at facility admissions. Patient is accepted to facility. 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 F&MS working with patient and family to add Medicaid ser vices to benefits. When added patient will have travel benefit. CM contacted Shahab Holman re [employer] [facility] training. Tamia Van, RN, 03/30/2017 1:21 PM: Received VM from Emily Terrell CM with [facility] to send referral to this location . Referral made, awaiting response. Follow Up: Schedule the following appointment(s) when you get home Follow up with [facility] . Specialties: Residential Facility, Intermediate Care Facility Contact information [address] [place] [phone] Follow up with LAUREN CHESTER MD. Go on 04/07/2017. Specialty: Cardiology Why: at 8:30 AM to establish Cardiology follow up Contact information [facility] [address] [address] Aria Rojas MD Division of Hospital Medicine [facility] I spent 60 minutes on discharge activities on the day of discharge, including counseling of the patient and his regarding his discharge plan and in coordination of care on the nc rd with nursing, pharmacy, and Heart Failure.Electronically signed by Aria Rojas MD at 5:42 PM PDTdocumented in this encounter Medications at Time of Discharge + + + +---------+ + + | Medication | Sig | Dispensed | Refills | Start | End Date | | | | | | Date | | + + + +---------+ + + | artificial tears | Instill 1 drop into | 15 mL | 0 | 04/02/20 | | | (dextran | both eyes as needed | | | 17 | | | 70-hypromellose) | (Dry Eyes). | | | | | | 0.1-0.3 % ophthalmic | Indications: Dry Eye | | | | | | dropsIndications: | | | | | | | dry eye | | | | | | + + + +---------+ + + | cholecalciferol | Take 1 tablet by | 30 | 0 | 04/02/20 | | | (Vitamin D3) | mouth once daily. | tablet | | 17 | | | (VITAMIN D3) 1,000 | Indications: Vitamin | | | | | | unit oral | D Deficiency | | | | | | tabletIndications: | | | | | | | vitamin D deficiency | | | | | | + + + +---------+ + + | melatonin 3 mg | Take 1 tablet by | 30 | 0 | 04/02/20 | | | oral | mouth once daily in | tablet | | 17 | | | tabletIndications: | the evening. | | | | | | delirium | Indications: | | | | | | | Delirium | | | | | + + + +---------+ + + | oxyCODONE | Take 1-2 tablets by | 50 | 0 | 04/02/20 | | | (immediate release) | mouth every four | tablet | | 17 | | | 5 mg oral | hours as needed for | | | | | | tabletIndications: | severe pain. | | | | | | Pain | Indications: Pain | | | | | + + + +---------+ + + | polyethylene | Mix 1 packet and | 30 | 0 | 04/02/20 | | | glycol 17 gram oral | take orally twice | packet | | 17 | | | powder in | daily as needed | | | | | | packetIndications: | (constipation). | | | | | | constipation | Indications: | | | | | | | constipation | | | | | + + + +---------+ + + | senna-docusate | Take 1 tablet by | 30 | 0 | 04/02/20 | | | 8.6-50 mg oral | mouth two times | tablet | | 17 | | | tabletIndications: | daily. Hold for | | | | | | constipation | loose stools | | | | | | | Indications: | | | | | | | constipation | | | | | + + + +---------+ + + | QUEtiapine 25 mg | Take 0.5 tablets by | 7 | 0 | 04/02/20 | | | oral | mouth once daily at | tablet | | 17 | 7 | | tabletIndications: | bedtime for 14 days. | | | | | | delirium | Indications: | | | | | | | delirium | | | | | + + + +---------+ + + documented as of this encounter Progress Notes Aria Rojas MD - 04/01/2017 9:25 AM PDT HOSPITALIST INPATIENT PROGRESS NOTE Author: Aria Rojas MD PCP: Jamal Guerrero MD Hospital Day:17 CC: cardiogenic shock 24h Events: No acute events overnight. Subj: Patient complaining of being unable to rest due to frequent interruptions. Says he slept po jennifer last night due to being hot. RN notes increased serous drainage from left groin wound a fter shower yesterday. Current Medications: acetaminophen (TYLENOL) tablet 1,000 mg, 1,000 mg, oral, TID artificial tears (dextran 70-hypromellose) (NATURE'S TEARS) 0.1-0.3 % ophthalmic drops 1 dr op, 1 drop, Both Eyes, PRN aspirin EC tablet 81 mg, 81 mg, oral, DAILY atorvastatin (LIPITOR) tablet 40 mg, 40 mg, oral, DAILY bisacodyl (DULCOLAX) suppository 10 mg, 10 mg, rectal, DAILY PRN cholecalciferol (Vitamin D3) (VITAMIN D-3) tablet 1,000 Units, 1,000 Units, oral, DAILY clopidogrel (PLAVIX) tablet 75 mg, 75 mg, oral, DAILY dextrose 50 % in water IV 25 mL, 25 mL, intravenous, PRN famotidine (PEPCID) tablet 20 mg, 20 mg, oral, BID glucagon (GLUCAGEN) injection 1 mg, 1 mg, intramuscular, PRN glucose chewable tablet 16 g, 16 g, oral, PRN insulin lispro (HUMALOG) injection, , subcutaneous, QID insulin NPH (HUMULIN N) injection 2 Units, 2 Units, subcutaneous, Q12H (Scheduled) isosorbide mononitrate CR (IMDUR) tablet 30 mg, 30 mg, oral, DAILY lidocaine (XYLOCAINE) 5 % ointment, , topical, PRN lisinopril (PRINIVIL) tablet 5 mg, 5 mg, oral, DAILY melatonin tablet 3 mg, 3 mg, oral, QPM menthol-zinc oxide (CALAZIME) topical paste 0.2%-16.5%, , topical, QID PRN metoprolol succinate (TOPROL-XL) tablet 25 mg, 25 mg, oral, DAILY nystatin (MYCOSTATIN) powder, , topical, BID oxyCODONE (immediate release) (ROXICODONE) tablet 10 mg, 10 mg, oral, Q4H PRN polyethylene glycol (MIRALAX) packet 17 g, 17 g, oral, BID polyethylene glycol (MIRALAX) packet 34 g, 34 g, oral, TID PRN QUEtiapine (SEROQUEL) tablet 12.5 mg, 12.5 mg, oral, HS senna-docusate (SENOKOT S) 8.6-50 mg 2 tablet, 2 tablet, oral, BID warfarin (COUMADIN) tablet 7.5 mg, 7.5 mg, oral, QPM Vitals: Last Vitals: BP 112/49 | Pulse 95 | Temp 36.7 C (98.1 F) | RR 16 | Ht 1.75 m (5' 8.9") | Wt 86.2 kg (190 lb 0.6 oz) | SpO2 98% | BMI 28.15 kg/(m^2) 24 Hour Vital Min/Max: Systolic (24hrs), Av , Min:87 , Max:135 Diastolic (24hrs), Av, Min:46, Max:76 Pulse Av.1 Min: 93 Max: 108 Temp Av.7 C (98 F) Min: 36.6 C (97.9 F) Max: 36.7 C (98.1 F) Resp Av.7 Min: 16 Max: 18 SpO2 Av.8 % Min: 92 % Max: 100 % Ins and Outs: Intake/Output Summary (Last 24 hours) at 04/01/17 0925 Last data filed at 04/01/17 0825 Gross per 24 hour Intake 1450 ml Output 2300 ml Net -850 ml Exam: General: WDWN, NAD Neck: JVP at the clavicle at 30 degrees Cardiovascular: RRR, no m/g/r appreciated Respiratory: CTA bilaterally Abdomen: soft, NT, ND, NABS Ext: No peripheral edema Skin: Left groin wound with resolving surrounding ecchymosis, small serous drainage on dres sing, no surrounding erythema or purulence Psych: Alert and answering questions appropriately, mildly irritable Basic Labs: CBC with diff last 72 hours (or 3 results) Recent Labs 03/30/17 0030 03/31/17 0345 04/01/17 0343 WBC 10.17 8.85 9.82 HB 9.1* 9.5* 9.3* HCT 27.5* 28.8* 27.7* PLT 450* 408* 435* NEUTROPERC 73.3* 73.6* 72.3* LYMPHPERC 16.7* 16.2* 17.1* MONOPERC 7.5 8.1 8.6 BASOPERC 0.2 0.2 0.1 EOSPERC 0.7* 0.5* 0.8* Chemistries last 72 Hours (or 3 results): Recent Labs 03/30/17 0030 03/30/176 03/31/17 0345 04/01/17 0343 NA -- < > 133* 131* 130* K -- < > 5.3* 4.9 4.8 CL -- < > 104 106 102 BICARB -- < > 19* 15* 19* BUN -- < > 50* 42* 49* CR -- < > 1.55* 1.24 1.48* CA -- < > 9.2 8.6 8.5* MG 2.7* -- -- 2.4 2.2 < > = values in this interval not displayed. INR 2.16 Assessment and plan: Ron Mckeon is a 61 year old male with a history of tobacco use , prediabetes, and chronic pain who was transferred to [facility] on 03/15 s/p STEMI with cardiogeni c shock requiring IABP and ECMO. He was transferred out to the [facility] on 03/25 for ongoing medi annie stabilization and optimization, with course complicated by repeat STEMI code overnight o n 03/29 that did not require further intervention. Cardiogenic shock following anterior STEMI Acute systolic heart failure Coronary artery disease Presented to OSH with sx concerning for ACS and was found to have anterior STEMI with 99% p roximal LAD lesion and 100% distal LM occlusion, with subsequent acute dissection/thrombosis of L main. S/p PCI of LM/LAD and LCx prior to transfer. Initially required IABP and pressor s, with ECMO initiated on arrival. Pressors rapidly weaned and IABP removed on HD #1. Decann ulated 03/19 and started on oral afterload reduction and beta blockade. Repeat STEMI code on 03/29, with repeat angiography without acute findings. Initial TTE on 03/17 with EF 20-25%, im proved to 30-35% on 03/30. -Continue ASA 81mg daily and clopidogrel 75mg po daily -Continue atorvastatin 40mg po daily -Continue metoprolol succinate 25mg daily -Continue lisinopril 5 mg daily and ISMN 30 mg daily -Will continue to monitor clinical volume status. Continue to hold diuretics for now. -Patient will need Life Vest follow up with police detective in [place] on discharge - appr eciate cardiology assistance with coordinating. -Will f/u further Heart Failure recs Hyperkalemia Resolved with holding lisinopril, eplerenone, and heparin (all in the setting of CKD). Poss ibly exacerbated by some myocardial necrosis. -Repeat BMP in AM Toxic metabolic encephalopathy Noted in CVICU and in last couple of days on 11K, likely related to prolonged hospital stay , recent critical illness and exacerbated by opiates, multiple attached lines, constipation. Reportedly waxing and waning but slowly improving. -Continue reduced dose of oxycodone 10mg q4 hours -Continue seroquel 12.5mg qhs and melatonin 3mg qhs -Continuebowel regimen for constipation prevention -Environmental modifications to minimize delirium risk Acute left groin pain, in the setting of chronic back pain Improving L groin pain at prior sheath site with stitch removed 03/27. No sign of infection or hematoma, but possibly some candidal infection/intertrigo. On [place] 10/325 Q8H as an outp atient. -Continue nystatin powder and lidocaine cream PRN -Oxycodone as above -Cont APAP 1000 mg TID -Nursing will request wound care reassess left groin wound to determine if more frequent dr dove changes may be beneficial Left atrial thrombus Noted on MARKY in the OR during ECMO decannulation. Completedheparin gtt bridge 03/29 to the rapeutic warfarin. -Continue warfarin dosing by pharmacy. Follow daily INR Deconditioning Pt is severely deconditioned in the setting of prolonged CVICU stay and profound illness. -Continue PT/OT At risk for malnutrition Very little PO intake but reportedly improving. Previously had dobhoff feeding tube in the CVICU. Nutrition assistance appreciated. -Continue to encourage good PO intake Normocytic anemia Hct dropped abruptly from 44 to 32 during first day at [facility], with addition decline to 24 th e following day. Has received 3U PRBC so far this admission. Suspect acute initial drop duri ng first 2-3 days of admission was related to acute blood loss anemia in setting of IABP, EC MO, multiple lines, very frequent lab monitoring. Ferritin elevated at 400. Stable. -Continue to trend CBC Thrombocytosis Thrombocytopenia - resolved Platelets on the high side at admission, declined to marilee of 68 03/17 concerning for destru ctive +/- consumptive process in the setting of acute illness and ECMO/IABP. Now elevated ag ain - suspect this is reactive and due to his recent STEMI/shock, although hemoconcentration may also be playing a role. -Continue to trend. If platelet count still elevated at discharge, should be followed outpa tient with PCP, consider Hematology referral if it does not self-resolve. AYLIN Cr elevated on admit to peak of 1.8 in the setting of cardiogenic shock, with subsequent im provement and stabilization hemodynamic support and medical management. Also noted to have e levated CK ~10K on admission, with subsequent downward trend. Good UOP. Unclear baseline - P CP records without any recent chemistries. sCr ~1.3-4 may be his new baseline. -Trend BMP Pre-diabetes On Metformin as an outpatient. Last A1c 5.6 on 03/26, but unlikely to be accurate given rece nt RBC transfusions. Current CBGs at goal. -Continue NPH 2U q12h -Continue CBG QAC/HS with SSI Chronic/resolved issues: AAA, infrarenal Noted on abdominal arterial/venous duplex 03/17. 3.9cm. - Encourage follow up with PCP following discharge GERD, chronic - Continue famotidine 20mg bid Leukocytosis, resolved Concern for aspiration pneumonia early in admission given persistent RUL infiltrate on imag ing. S/p 7d course of Zosyn 03/22/17. Intermittently on vancomycin during that time as well, dc'd 03/20/17. Acute hypoxemic respiratory failure, resolved In setting of STEMI and cardiogenic shock. ETT placed 03/15, extubated uneventfully 03/22. No current O2 requirement. VTE prophylaxis: warfarin Code status: FULL Dispo: Anticipate likely d/c to SNF later this week when arrangements in place and if medic ally stable without further events. Aria Rojas MD Division of Hospital Medicine [facility] Pager [phone] I spent 36 minutes on the patient encounter today, >50% in counseling of the patient on the above plan of care and in coordination of care on the [facility] with nursing. Aria Reeves MD - 4:14 PM PDT HOSPITALIST INPATIENT PROGRESS NOTE Author: Aria Rojas MD PCP: Jamal Guerrero MD Hospital Day:16 CC: cardiogenic shock 24h Events: No acute events overnight. Subj: Patient sleeping on rounds this morning and requested that he not be awakened. re ports patient "cranky" this morning. RN notes patient irritable and at times seems mildly di soriented. RN also notes that they are monitoring right groin hematoma and it is stable comp ared to her assessment last night. Current Medications: acetaminophen (TYLENOL) tablet 1,000 mg, 1,000 mg, oral, TID artificial tears (dextran 70-hypromellose) (NATURE'S TEARS) 0.1-0.3 % ophthalmic drops 1 dr op, 1 drop, Both Eyes, PRN aspirin EC tablet 81 mg, 81 mg, oral, DAILY atorvastatin (LIPITOR) tablet 40 mg, 40 mg, oral, DAILY bisacodyl (DULCOLAX) suppository 10 mg, 10 mg, rectal, DAILY PRN cholecalciferol (Vitamin D3) (VITAMIN D-3) tablet 1,000 Units, 1,000 Units, oral, DAILY clopidogrel (PLAVIX) tablet 75 mg, 75 mg, oral, DAILY dextrose 50 % in water IV 25 mL, 25 mL, intravenous, PRN famotidine (PEPCID) tablet 20 mg, 20 mg, oral, BID glucagon (GLUCAGEN) injection 1 mg, 1 mg, intramuscular, PRN glucose chewable tablet 16 g, 16 g, oral, PRN insulin lispro (HUMALOG) injection, , subcutaneous, QID insulin NPH (HUMULIN N) injection 2 Units, 2 Units, subcutaneous, Q12H (Scheduled) isosorbide mononitrate CR (IMDUR) tablet 30 mg, 30 mg, oral, DAILY lidocaine (XYLOCAINE) 5 % ointment, , topical, PRN lisinopril (PRINIVIL) tablet 5 mg, 5 mg, oral, DAILY melatonin tablet 3 mg, 3 mg, oral, QPM menthol-zinc oxide (CALAZIME) topical paste 0.2%-16.5%, , topical, QID PRN metoprolol succinate (TOPROL-XL) tablet 25 mg, 25 mg, oral, DAILY nystatin (MYCOSTATIN) powder, , topical, BID oxyCODONE (immediate release) (ROXICODONE) tablet 10 mg, 10 mg, oral, Q4H PRN polyethylene glycol (MIRALAX) packet 17 g, 17 g, oral, BID polyethylene glycol (MIRALAX) packet 34 g, 34 g, oral, TID PRN probiotic yogurt (MARTIN'S YOGURT), , oral, BID QUEtiapine (SEROQUEL) tablet 12.5 mg, 12.5 mg, oral, HS senna-docusate (SENOKOT S) 8.6-50 mg 2 tablet, 2 tablet, oral, BID warfarin (COUMADIN) tablet 5 mg, 5 mg, oral, QPM Vitals: Last Vitals: BP 110/53 | Pulse 101 | Temp 36.6 C (97.9 F) | RR 16 | Ht 1.75 m (5' 8.9") | Wt 86.7 kg (191 lb 2.2 oz) | SpO2 92% | BMI 28.31 kg/(m^2) 24 Hour Vital Min/Max: Systolic (24hrs), Av , Min:86 , Max:145 Diastolic (24hrs), Av, Min:41, Max:76 Pulse Av.6 Min: 53 Max: 108 Temp Av.7 C (98.1 F) Min: 36.6 C (97.9 F) Max: 37.1 C (98.8 F) Resp Av.7 Min: 14 Max: 20 SpO2 Av.7 % Min: 92 % Max: 100 % Ins and Outs: Intake/Output Summary (Last 24 hours) at 03/31/17 1614 Last data filed at 03/31/17 1559 Gross per 24 hour Intake 1820 ml Output 1900 ml Net -80 ml Exam: General: WDWN, NAD, lying flat in bed asleep Cardiovascular: RRR, no m/g/r appreciated Respiratory: CTA bilaterally on anterior exam Abdomen: soft, NT, ND, NABS Ext: No peripheral edema, right groin with hematoma (not indurated or fluctuant) and depen dent bruising of right hip Basic Labs: CBC with diff last 72 hours (or 3 results) Recent Labs 03/29/17 0736 03/30/17 0030 03/31/17 0345 WBC 11.48* 10.17 8.85 HB 9.4* 9.1* 9.5* HCT 28.2* 27.5* 28.8* PLT 477* 450* 408* NEUTROPERC 76.4* 73.3* 73.6* LYMPHPERC 12.6* 16.7* 16.2* MONOPERC 7.8 7.5 8.1 BASOPERC 0.3 0.2 0.2 EOSPERC 0.7* 0.7* 0.5* Chemistries last 72 Hours (or 3 results): Recent Labs 03/29/17 0736 03/30/17 0030 03/30/17 1249 03/30/17 2036 03/31/17 0345 NA 131* -- < > 132* 133* 131* K 5.0 -- < > 5.9* 5.3* 4.9 CL 102 -- < > 104 104 106 BICARB 21 -- < > 18* 19* 15* BUN 49* -- < > 44* 50* 42* CR 1.50* -- < > 1.40* 1.55* 1.24 CA 8.9 -- < > 8.5* 9.2 8.6 MG 2.7* 2.7* -- -- -- 2.4 < > = values in this interval not displayed. INR 2.1 Imaging: Transthoracic Echocardiogram (03/30/17): 1. The left ventricular cavity size is normal. 2. Visually estimated left ventricular ejection fraction is 30 - 35%. 3. Left ventricular systolic thickening is segmentally abnormal e, thickness and function a re normal. 5. Compared to the most recent exam dated, 03/19/17, the LVEF has improved slightly. Segment al wall motion abnormalities remain. Assessment and plan: Ron Mckeon is a 61 year old male with a history of tobacco use , prediabetes, and chronic pain who was transferred to [facility] on 03/15 s/p STEMI with cardiogeni c shock requiring IABP and ECMO. He was transferred out to the [facility] on 03/25 for ongoing medi annie stabilization and optimization, with course complicated by repeat STEMI code overnight o n 03/29 that did not require further intervention. Cardiogenic shock following anterior STEMI Acute systolic heart failure Coronary artery disease Presented to OSH with sx concerning for ACS and was found to have anterior STEMI with 99% p roximal LAD lesion and 100% distal LM occlusion, with subsequent acute dissection/thrombosis of L main. S/p PCI of LM/LAD and LCx prior to transfer. Initially required IABP and pressor s, with ECMO initiated on arrival. Pressors rapidly weaned and IABP removed on HD #1. Decann ulated 03/19 and started on oral afterload reduction and beta blockade. Repeat STEMI code on 03/29, with repeat angiography without acute findings. Initial TTE on 03/17 with EF 20-25%, im proved to 30-35% on 03/30. -Continue ASA 81mg daily and clopidogrel 75mg po daily -Continue atorvastatin 40mg po daily -Continue metoprolol succinate 25mg daily -I discussed the patient with Dr. Ceballos from the Heart Failure team today and we will add li sinopril 5 mg daily and ISMN 30 mg daily -Will continue to monitor clinical volume status. Continue to hold diuretics for now. -Patient will need Life Vest follow up with police detective in [place] on discharge - appr iate cardiology assistance with coordinating. Hyperkalemia Resolved with holding lisinopril, eplerenone, and heparin (all in the setting of CKD). Poss ibly exacerbated by some myocardial necrosis. -Adding back low-dose lisinopril as above. Repeat BMP in AM. Toxic metabolic encephalopathy Noted in CVICU and in last couple of days on 11K, likely related to prolonged hospital stay , recent critical illness and exacerbated by opiates, multiple attached lines, constipation. Reportedly waxing and waning but slowly improving. -Continue reduced dose of oxycodone 10mg q4 hours -Continue seroquel 12.5mg qhs and melatonin 3mg qhs -Continue bowel regimen for constipation prevention -Other delirium precautions: - Keep glasses and hearing aids available if needed - maintain sleep/wake cycle as much as possible - attempt to keep patient as active as possible: OOB TID, out of room in wheelchair - frequent reorientation, encourage family/caregivers to be available at bedside to reassure patient - deescalate restraints as able (no reardon, continuous running IVs: he eric off, needs telemetry, no physical restraints, discontinued SCDs) Acute left groin pain, in the setting of chronic back pain Improving L groin pain at prior sheath site with stitch removed 03/27. No sign of infection or hematoma, but possibly some candidal infection/interrigo. On [place] 10/ Q8H as an outpa tient. -Continue nystatin powder and lidocaine cream PRN -Oxycodone as above -Cont APAP 1000 mg TID Left atrial thrombus Noted on MARKY in the OR during ECMO decannulation. Completed heparin gtt bridge 03/29 to ther apeutic warfarin. -Continue warfarin dosing by pharmacy. Follow daily INR Deconditioning Pt is severely deconditioned in the setting of prolonged CVICU stay and profound illness. P T/OT consulting and recommend 24 hour skilled care on discharge. -CM looking for skilled placement in [place] near patient's home; appreciate assistance At risk for malnutrition Very little PO intake but reportedly improving. Previously had dobhoff feeding tube in the CVICU.Nutrition assistance appreciated. -Calorie count ongoing -Encouraging PO intake Normocytic anemia Hct dropped abruptly from 44 to 32 during first day at [facility], with addition decline to 24 th e following day. Has received 3U PRBC so far this admission. Suspect acute initial drop duri ng first 2-3 days of admission was related to acute blood loss anemia in setting of IABP, EC MO, multiple lines, very frequent lab monitoring. No overt clinical e/o bleeding since admis neema. Ferritin elevated at 400. -Continue to trend CBC Thrombocytosis Thrombocytopenia - resolved Platelets on the high side at admission, declined to marilee of 68 03/17 concerning for destru ctive +/- consumptive process in the setting of acute illness and ECMO/IABP. Now elevated ag ain - suspect this is reactive and due to his recent STEMI/shock, although hemoconcentration may also be playing a role. AYLIN Cr elevated on admit to peak of 1.8 in the setting of cardiogenic shock, with subsequent im provement and stabilization hemodynamic support and medical management. Also noted to have e levated CK ~10K on admission, with subsequent downward trend. Good UOP. Unclear baseline - P CP records without any recent chemistries. sCr ~1.3-4 may be his new baseline. -Trend BMP Pre-diabetes On Metformin as an outpatient. Last A1c 5.6 on 03/26, but unlikely to be accurate given rece nt RBC transfusions. Current CBGs at goal. - Continue NPH 2U q12h - Continue CBG QAC/HS with SSI #Leukocytosis, resolved Concern for aspiration pneumonia early in admission given persistent RUL infiltrate on imag ing. S/p 7d course of Zosyn 03/22/17. Intermittently on vancomycin during that time as well, dc'd 03/20/17. BlCx and SpCx 03/18negative. UA done from reardon 03/25 with some LE, but no marc teria, suspect this is from reardon rather than true UTI or CAUTI, and now reardon has been hortencia marla 03/26. No recent fevers. No current diarrhea, though is at risk of C diff. - Trend daily CBC Acute hypoxemic respiratory failure, resolved In setting of STEMI and cardiogenic shock. ETT placed 03/15, extubated uneventfully 03/22. No current O2 requirement. Chronic issues: #AAA, infrarenal Noted on abdominal arterial/venous duplex 03/17. 3.9cm. Proximal Ao and supra-renal Ao obscu red by overlying bowel gas. - Encourage follow up with PCP following discharge #GERD, chronic - Continue famotidine 20mg bid VTE prophylaxis: warfarin Code status: FULL Dispo: Anticipate likely d/c to SNF later this week when arrangements in place and if medic ally stable without further events. Aria Rojas MD Division of Hospital Medicine [facility] Pager [phone] I spent 36 minutes on the patient encounter today, >50% in counseling of the patient's on the above plan of care and in coordination of care on the [facility] with nursing and Heart Fa ilure. 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 bank laboratory technician -on angiography, interventionalists noted "patent stent traversing the LM to LAD and patent stent in the proximal LCX, discrete thrombi seen in any vessel...overall improved flow comp ared to 03/15 acute angiogram" -heparin drip now off post-procedure again -trop peak of 1.3, down to 0.95 this afternoon -patient feeling much more alert today: wants to shower, get up and go around the unit in w heelchair -had 2 BMs yesterday -K 5.5 this AM but slightly hemolyzed, repeat up to 5.9, given 30g of kayexalate and lisino pril and eplerenone held -no chest pain, palpitations, lightheadedness, dyspnea, orthopnea, PND this AM Inpatient Medication list has been reviewed by me today. Current Facility-Administered Medications: acetaminophen (TYLENOL) tablet 1,000 mg, 1,000 m g, oral, TID, Ivette Chaudhry MD, 1,000 mg at 03/30/17931 artificial tears (dextran 70-hypromellose) (NATURE'S TEARS) 0.1-0.3 % ophthalmic drops 1 dr op, 1 drop, Both Eyes, PRN, KULWINDER Bella [START ON 03/31/2017] aspirin EC tablet 81 mg, 81 mg, oral, DAILY, Ivette Chaudhry MD atorvastatin (LIPITOR) tablet 40 mg, 40 mg, oral, DAILY, Jeet Ramírez MD, 40 mg at 32 bisacodyl (DULCOLAX) suppository 10 mg, 10 mg, rectal, DAILY PRN, Gaurav Hobbs PA-C cholecalciferol (Vitamin D3) (VITAMIN D-3) tablet 1,000 Units, 1,000 Units, oral, DAILY, Amol Alvarado MD, 1,000 Units at 03/30/17 0932 clopidogrel (PLAVIX) tablet 75 mg, 75 mg, oral, DAILY, Jeet Ramírez MD, 75 mg at 03/30 0932 dextrose 50 % in water IV 25 mL, 25 mL, intravenous, PRN, Jose Ramon Alvarado MD famotidine (PEPCID) tablet 20 mg, 20 mg, oral, BID, Jeet Ramírez MD, 20 mg at 03/30/17 0932 glucagon (GLUCAGEN) injection 1 mg, 1 mg, intramuscular, PRN, Jose Ramon Alvarado MD glucose chewable tablet 16 g, 16 g, oral, PRN, Jose Ramon Alvarado MD insulin lispro (HUMALOG) injection, , subcutaneous, QID, Jose Ramon Alvarado MD, 2 Units at 03/27/171955 insulin NPH (HUMULIN N) injection 2 Units, 2 Units, subcutaneous, Q12H (Scheduled), Salvador Alvarado MD, 2 Units at 03/30/17 0958 ipratropium-albuterol (DUO-NEB) nebulizer solution 3 mL, 3 mL, inhalation, Q6H PRN, Terry Ochoa MD lidocaine (XYLOCAINE) 5 % ointment, , topical, PRN, Ariana Bose DO lisinopril (PRINIVIL) tablet 5 mg, 5 mg, oral, BID, Ariana Bose DO, 5 mg at 7 0932 melatonin tablet 3 mg, 3 mg, oral, QPM, Jeet Ramírez MD, 3 mg at 03/29/172148 menthol-zinc oxide (CALAZIME) topical paste 0.2%-16.5%, , topical, QID PRN, Carlos Low PA-C [START ON 03/31/2017] metoprolol succinate (TOPROL-XL) tablet 25 mg, 25 mg, oral, DAILY, Cornel Bose DO nystatin (MYCOSTATIN) powder, , topical, BID, Ariana Bose DO oxyCODONE (immediate release) (ROXICODONE) tablet 10 mg, 10 mg, oral, Q4H PRN, Ariana beaulieu DO, 10 mg at 03/30/17 0737 polyethylene glycol (MIRALAX) packet 17 g, 17 g, oral, BID, Gaurav Hobbs PA-C, 17 g at 03/29/17 0849 polyethylene glycol (MIRALAX) packet 34 g, 34 g, oral, TID PRN, Gaurav Hobbs PA-C, 34 g at 03/29/17 1022 probiotic yogurt (MARTIN'S YOGURT), , oral, BID, Jose Ramon Alvarado MD QUEtiapine (SEROQUEL) tablet 12.5 mg, 12.5 mg, oral, HS, Jeet Ramírez MD, 12.5 mg at 0 7/23/17 2149 senna-docusate (SENOKOT S) 8.6-50 mg 2 tablet, 2 tablet, oral, BID, Jeet Ramírez MD, 2 tablet at 03/30/17 0932 warfarin (COUMADIN) tablet 7.5 mg, 7.5 mg, oral, QPM, Ariana Trinidad, OBJECTIVE: Last Vitals: BP 101/56 | Pulse 92 | Temp 36.5 C (97.7 F) | RR 18 | Ht 1.75 m (5' 8.9") | Wt 89.5 kg (197 lb 5 oz) | SpO2 98% | BMI 29.22 kg/(m^2) 24 Hour Vital Min/Max: Systolic (24hrs), Av , Min:89 , Max:125 Diastolic (24hrs), Av, Min:49, Max:67 Pulse Min: 80 Max: 100 Temp Min: 36.5 C (97.7 F) Max: 37.1 C (98.8 F) Resp Min: 15 Max: 20 SpO2 Min: 91 % Max: 98 % Intake/Output Summary (Last 24 hours) at 03/30/17 0756 Last data filed at 03/30/17 0658 Gross per 24 hour Intake 1998.9 ml Output 2100 ml Net -101.1 ml PHYSICAL EXAMINATION: General: Elderly man, laying in bed, no distress, alert and oriented x4 Neck: Supple, JVP not elevated Cardiovascular: regular rate and rhythm,, no murmurs, gallops, or rubs appreciated. Lungs: Unlabored breathing. Clear to auscultation bilaterally without crackles, rhonchi, or wheezes. Abd: Soft, nontender, and nondistended. Left groin: dressing clean/dry/intact with minor surrounding ecchymosis Ext: No edema. Warm and well-perfused. Chronic venous stasis changes. Neuro/psych: logical thought process, no inattention LABS/IMAGING/EKG: I have reviewed new data available in the electronic medical record. Not able findings Include: Recent Labs 03/23/17 0200 03/24/17 0012 03/25/17 0052 03/26/17 0337 03/28/17 1727 03/29/17 0736 03/29/17 2324 03/30/17 0314 03/30/17 0908 GLU 127* < > 164* < > 128* < > 114* < > 112* < > 121* < > 130* 109* 11 0* BUN 48* -- 47* -- 47* -- 45* < > 47* -- 49* -- -- 49* -- CR 1.56* -- 1.52* -- 1.48* -- 1.31* < > 1.40* -- 1.50* -- -- 1.3 4* -- ALB 2.1* -- 2.1* -- 2.2* -- 2.2* -- -- -- -- -- -- -- - - CA 7.7* -- 8.1* -- 8.3* -- 8.5* < > 9.0 -- 8.9 -- -- 9.0 -- PO4 4.9* -- 4.6 -- 4.8* -- -- -- -- -- -- -- -- -- -- NA 140 -- 133* -- 134* -- 135* < > 132* -- 131* -- -- 132* -- CL 101 -- 97 -- 100 -- 104 < > 101 -- 102 -- -- 102 -- BICARB 30 -- 27 -- 27 -- 22 < > 22 -- 21 -- -- 23 -- < > = values in this interval not displayed. CBC with diff last 72 hours (or 3 results) - Refreshable Recent Labs 03/28/17 0413 03/29/17 0736 03/30/17 0030 WBC 11.82* 11.48* 10.17 HB 8.4* 9.4* 9.1* HCT 25.7* 28.2* 27.5* PLT 406* 477* 450* NEUTROPERC 74.7* 76.4* 73.3* LYMPHPERC 14.8* 12.6* 16.7* MONOPERC 7.0 7.8 7.5 BASOPERC 0.2 0.3 0.2 EOSPERC 0.9* 0.7* 0.7* Lab Results Component Value Date INRPT 2.24 (H) 03/30/2017 Lab Results Component Value Date TROPONIN 1.30 03/30/2017 TROPONIN 1.08 03/30/2017 TROPONIN 0.89 03/30/2017 TROPONIN 0.41 03/29/2017 TROPONIN 370.00 03/15/2017 Sputum cx 03/18 no growth final Blood cx 03/18 final no growth final EKGs reviewed from last night. Transthoracic Echocardiogram, 03/30 1. The left ventricular cavity size is normal. 2. Visually estimated left ventricular ejection fraction is 30 - 35%. 3. Left ventricular systolic thickening is segmentally abnormal (see comments below). 4. Right ventricular size, thickness and function are normal. 5. Compared to the most recent exam dated, 03/19/17, the LVEF has improved slightly. Segmental wall motion abnormalities remain. ASSESSMENT/PLAN: 61M with PMH notable for 18PYH tobacco smoking, HL, HD, pre-diabetes and chronic pain admit [facility] 03/15 in transfer from OSH following STEMI complicated by cardiogenic shock necessitating IABP and ECMO, now with acute systolic heart failure , transferred out to [facility] 03/25 for ongo ing optimization of medical therapy and diuresis, also followed by Advanced Heart Failure se rvice, course complicated by some mild cognitive insult and deconditioning, now with another STEMI code last night without need for intervention and clinically stable today. #CAD, s/p STEMI #ANY x 2 (LM/LAD, LCx) Pt presented to OSH with sx concerning for ACS and was found to have anterior STEMI with 99 % proximal LAD lesion and 100% distal LM occlusion, with subsequent acute dissection/thrombo sis of L main. S/p revascularization via PCI of LM/LAD and LCX, prior to transfer. Then, wit h another STEMI code last night, 03/29, with anterior involvement on EKG with inferior recipr ocal depressions--and patient started on heparin drip with full dose aspirin, then s/p repea t angiography without acute finding: "patent stent traversing the LM to LAD and patent stent in the proximal LCX, discrete thrombi seen in any vessel...overall improved flow compared t o 03/15 acute angiogram." - TTE today with previously seen wall motion abnormalities - Start ASA 81mg daily tomorrow (got 325mg last night) - Continue clopidogrel 75mg po daily - Continue atorvastatin 40mg po daily - Continue metoprolol succinate 25mg daily - Patient will follow up with police detective in [place] on discharge; appreciate cardiolo adriana assistance with coordinating #Hyperkalemia Likely due some cardiac myonecrosis with STEMI last night and exacerbated by multiple meds: lisinopril, eplerenone, and also heparin all in the setting of CKD -holding offending meds above for now -treatment for CAD as above -recheck BMP at 10pm in the AM #Acute cardiogenic shock in the setting of STEMI #Acute systolic heart failure Pt transferred 03/15 in acute cardiogenic shock requiring IABP (removed 03/16/17) and pressors (dopamine, [place]). VA ECMO started on arrival. He was rapidly weaned from pressors and IABP wa s removed HD1. Decannulated 03/19. Diuresed with furosemide gtt and started on po afterload r eduction and low-dose beta blockade. TTE with EF 20-25% on 03/17, and now TTE today 03/30 with improved systolic function with EF 30-35%. Currently doing well and appears euvolemic. - continue to hold diuresis today (got torsemide 40mg 03/28) - close monitoring of renal function and electrolytes - Continue metoprolol succinate 25mg daily - HOLD lisinopril 5mg BID for now given hyperkalemia - HOLD eplerenone 50mg daily as well given hyperkalemia; consider starting spironolactone 1 2.5mg daily in the AM pending K - Plan for LifeVest for VT/VF protection in the short term as he recovers (too soon for ICD consideration); appreciate HF team/CM coordination - Continue telemetry - Strict I/Os, Daily weights, 2LFR, 2g NA - Appreciate advanced heart failure involvement and recommendations #Toxic metabolic encephalopathy, improving Noted in CVICU and in last couple of days on 11. Improved today following bowel movements, decreasing lines/opiates yesterday. But, has been waxing and waning. ikely related to prolo nged hospital stay, recent critical illness and exacerbated by opiates, multiple attached li odilia, constipation. -Continue reduced dose of oxycodone 10mg q4 hours -Continue seroquel 12.5mg qhs and Melatonin 3mg qhs -Continue bowel regimen for constipation prevention -Other delirium precautions: - Keep glasses and hearing aids available if needed - maintain sleep/wake cycle as much as possible - attempt to keep patient as active as possible: OOB TID, out of room in wheelchair - frequent reorientation, encourage family/caregivers to be available at bedside to reassu re patient - deescalate restraints as able (no reardon, continuous running IVs: heparin off, needs tele metry, no physical restraints, discontinued SCDs) #Left groin pain Improving L groin pain at prior sheath site with stitch removed 03/27. No sign of infection or hematoma, but possibly some candidal infection/interrigo. -continue Nystatin powder -lidocaine cream PRN -appreciate wound care consult 03/26 -oxycodone as above -Cont APAP 1000 mg TID #Chronic pain in the setting of degenerative disc disease and cervical stenosis (noted on o utside records, on [place] q8 as outpatient) Improved today -continue oxycodone 10mg q4 hours as above -consider other pain control such as Duloxetine 30mg daily for chronic pain if needed #JAVON thrombus Noted on MARKY in the OR during ECMO decannulation. Completed heparin gtt bridge 03/29 to ther apeutic warfarin. - anticoagulation with warfarin, pharmacist assistance appreciated - daily INR #Deconditioning Pt is severely deconditioned in the setting of prolonged CVICU stay and profound illness. P T/OT consulting and recommend 24 hour skilled care on discharge. -CM looking for skilled placement in [place] near patient's home; appreciate assistance #Risk for malnutrition Very little PO intake, improving today. Previously had dobhoff feeding tube in the CVICU.Nu trition assistance appreciated. -Calorie count ongoing -Encouraging PO intake #Anemia, normocytic Pt noted to have anemia on H&P. Hct dropped abruptly from 44 to 32 during first day at [facility] , with addition decline to 24 the following day. Has received 3U PRBC so far this admission. Currently stable Hct/Hgb. Suspect acute initial drop during first 2-3 days of admission was related to acute blood loss anemia in setting of IABP, ECMO, multiple lines, very frequent lab monitoring. No overt clinical e/o bleeding since admission. -check ferritin in AM -Trend CBC #Thrombocytopenia, resolved --> thrombocytosis 450s Plts on the high side at admission, declined to marilee of 68 03/17 concerning for destructive +/- consumptive process in the setting of acute illness and ECMO/IABP. Now elevated to 480s today likely due to hemoconcentration in the setting of a little overdiuresis 2 days ago. #AYLIN Improving. Cr elevated on admit to peak of 1.8 in the setting of cardiogenic shock, with mckeon bsequent improvement and stabilization ~1.3-1.4 with hemodynamic support and medical managem ent. Also noted to have elevated CK ~10K on admission, with subsequent downward trend. Good UOP. Unclear baseline, and reviewed records from PCP today--without any recent chemistries. sCr ~1.3-4 may be his new baseline. - Trend BMP #Pre-diabetes On Metformin as an outpatient. Last A1c 5.6 on 03/26, but unlikely to be accurate given rece nt RBC transfusions. Current CBGs at goal. - Continue NPH 2U q12h - Continue CBG QAC/HS with SSI #Leukocytosis, resolved Concern for aspiration pneumonia early in admission given persistent RUL infiltrate on imag ing. S/p 7d course of Zosyn 03/22/17. Intermittently on vancomycin during that time as well, dc'd 03/20/17. BlCx and SpCx 03/18 negative. UA done from reardon 03/25 with some LE, but no bact eria, suspect this is from reardon rather than true UTI or CAUTI, and now reardon has been remov ed 03/26. No recent fevers. No current diarrhea, though is at risk of C diff. - Trend daily CBC #Acute hypoxemic respiratory failure, resolved In setting of STEMI and cardiogenic shock. ETT placed 03/15, extubated uneventfully 03/22. No current O2 requirement. Chronic issues: #AAA, infrarenal Noted on abdominal arterial/venous duplex 03/17. 3.9cm. Proximal Ao and supra-renal Ao obscu red by overlying bowel gas. - Encourage follow up with PCP following discharge #GERD, chronic - Continue famotidine 20mg bid CODE status: FULL Thromboembolic prophylaxis: therapeutic warfarin Dispo plans: to SNF; appreciate CM assistance Barriers for DC: delivery/approval of life[facility], [facility] bed Ariana Bose DO Mine Engineering Superintendentmetal dealer Clinical Hospitalist and Medicine Teaching Service Division of Hospital Medicine [facility] [place] Pager [phone] [facility] DEPARTMENT: Hosp- [phone] Place of Service: Date of Service: 03/26/2017 CSN: [id number] Modifiers:GC Resident Involved: Yes Suggested CPT: 61498 Subsequent Visit Detailed/High complexity 35 min Cristi Rodrigues - 03/30/2017 11:58 AM PDTTransthoracic echocardiogram completed. Final report to follow. Ivette Gonzales MD - 03/30/2017 6:11 AM PDTEvaluated patient for episode of chest pain at around 9 pm. This wa s a brief episode lasting about 10 minutes and spontaneously resolved w/o intervention. Gela ent was at baseline mental status and at bedside confirmed chest pain episode. Discuss ed case w/ Dr. Chad Ochoa of cardiology and troponin was trended along with the EKGs, which archie wed evolving ST elevations and rising troponin. Initially unclear if the EKG changes were n ew from prior ECG on 03/19, however given continued elevated Tn, patient's significant recent RI, we activated the blood bank laboratory technician. Patient received 325 mg ASA at bedside and was briefly on heparin which has since been disc ontinued. Per cardiology will continue daily 81 mg ASA, plavix and warfarin. Continue to t rend troponins as well. I spent 30 minutes with this patient with >50% of the time evaluating patient at the [facility] on numerous occasions, evaluating studies and coordinating care w/ cardiology.Electronical ly signed by Ivette Chaudhry MD at 03/30/2017 6:24 AM Gerson Oseguera MD - 03/30/2017 4:31 AM PDTCardiology Preliminary Procedure Note (Full report to follow) Primary Care Provider: Jamal Guerrero MD Referring Provider: No Referring Provider Per Patient Staff Pharmacist Staff: Katarina Ngo M.D. Procedure(s): Coronary Angiography Indications: Chest pain, ST elevation Access: 6F RFA Post Procedure Access: No evidence of distal limb ischemia or distal embolization Estimated Blood Loss: 15 mL Medications: Fentanyl 50 mcg Route: IV Midazolam 1 mg Route: IV Contrast: 30 mL Omnipaque Findings: Coronary Angiography: Patent LM/LAD and LCx stents with distal ANNA 3 flow, patent R system . Intervention: None Complications: None Hemostasis: Manual compression in blood bank laboratory technician. Site: [facility] Recommendations: Patient Status: Inpatient Usual post cath care. Ariana Ivy D O - 03/29/2017 9:30 AM PDT CLINICAL HOSPITALIST SERVICE PROGRESS NOTE PATIENT'S NAME/MRN: Ron Mckeon/[id number] HOSPITAL DAY: #14 24-HOUR EVENTS & SUBJECTIVE: -started PO torsemide yesterday; I/o about net even yesterday -hypotension to the 80s/40s last night; lisinopril PM dose held -pain: still in the left groin, also in the bilateral posterior calves--but he denies his c hronic DJD pain in the back and neck (75mg oxycodone used in last day) -no BM in 2 days -patient more confused this AM: oriented but tells me a story of kids breaking in last nigh t while he was sleeping "in the shop" so he yelled at their parents -nystatin started for groin rash yesterday -continues on heparin bridge to therapeutic warfarin, INR now therapeutic -patient with low PO intake; calorie count -no chest pain, palpitations, lightheadedness, dyspnea, orthopnea, PND Inpatient Medication list has been reviewed by me today. Current Facility-Administered Medications: acetaminophen (TYLENOL) tablet 1,000 mg, 1,000 m g, oral, TID, Ivette Chaudhry MD, 1,000 mg at 03/28/17 2141 artificial tears (dextran 70-hypromellose) (NATURE'S TEARS) 0.1-0.3 % ophthalmic drops 1 dr wong, 1 drop, Both Eyes, PRN, Venice Butcher, ACNP atorvastatin (LIPITOR) tablet 40 mg, 40 mg, oral, DAILY, Jeet Ramírez MD, 40 mg at 0847 bisacodyl (DULCOLAX) suppository 10 mg, 10 mg, rectal, DAILY PRN, CLAUDIO DiegoC cholecalciferol (Vitamin D3) (VITAMIN D-3) tablet 1,000 Units, 1,000 Units, oral, DAILY, Amol Alvarado MD, 1,000 Units at 03/29/17 0847 clopidogrel (PLAVIX) tablet 75 mg, 75 mg, oral, DAILY, Jeet Ramírez MD, 75 mg at 03/29 0847 dextrose 50 % in water IV 25 mL, 25 mL, intravenous, PRN, Jose Ramon Alvarado MD eplerenone (INSPRA) tablet 50 mg, 50 mg, oral, DAILY, Jeet Ramírez MD, 50 mg at 0848 famotidine (PEPCID) tablet 20 mg, 20 mg, oral, BID, Jeet Ramírez MD, 20 mg at 03/29/17 0847 glucagon (GLUCAGEN) injection 1 mg, 1 mg, intramuscular, PRN, Jose Ramon Alvarado MD glucose chewable tablet 16 g, 16 g, oral, PRN, Jose Ramon Alvarado MD heparin in D5W 25,000 Units/250 mL (100 Units/mL) IV infusion (RTU), 1-2,500 Units/hr, intr avenous, CONTINUOUS, Jose Ramon Alvarado MD, Last Rate: 19.5 mL/hr at 03/29/17 0817, 1,950 U nits/hr at 03/29/17 0817 insulin lispro (HUMALOG) injection, , subcutaneous, QID, Jose Ramon Alvarado MD, 2 Units at 03/27/171955 insulin NPH (HUMULIN N) injection 2 Units, 2 Units, subcutaneous, Q12H (Scheduled), Salvador Alvarado MD, 2 Units at 03/28/172206 ipratropium-albuterol (DUO-NEB) nebulizer solution 3 mL, 3 mL, inhalation, Q6H PRN, Terry Ochoa MD lidocaine (XYLOCAINE) 5 % ointment, , topical, PRN, Ariana Bose DO lisinopril (PRINIVIL) tablet 5 mg, 5 mg, oral, BID, Ariana Bose DO, 5 mg at 7 0847 melatonin tablet 3 mg, 3 mg, oral, QPM, Jeet Ramírez MD, 3 mg at 03/28/172141 menthol-zinc oxide (CALAZIME) topical paste 0.2%-16.5%, , topical, QID PRN, Carlos Low PA-C metoprolol succinate (TOPROL-XL) tablet 25 mg, 25 mg, oral, DAILY, Gaurav Hobbs PA-C, 25 mg at 03/29/17 0846 nystatin (MYCOSTATIN) powder, , topical, BID, Ariana Bose DO [DISCONTINUED] oxyCODONE (immediate release) (ROXICODONE) tablet 5-10 mg, 5-10 mg, oral, Q3 H PRN, 10 mg at 03/24/17 2200 OR oxyCODONE (immediate release) (ROXICODONE) liquid 10-15 mg, 10-15 mg, oral, Q6H PRN, Ariana Bose DO, 15 mg at 03/29/17 0537 polyethylene glycol (MIRALAX) packet 17 g, 17 g, oral, BID, Gaurav Hobbs PA-C, 17 g at 03/29/17 0849 polyethylene glycol (MIRALAX) packet 34 g, 34 g, oral, TID PRN, Gaurav Hobbs PA-C probiotic yogurt (MARTIN'S YOGURT), , oral, BID, Jose Ramon Alvarado MD QUEtiapine (SEROQUEL) tablet 12.5 mg, 12.5 mg, oral, HS, Jeet Ramírez MD, 12.5 mg at 0 03/28/172 senna-docusate (SENOKOT S) 8.6-50 mg 2 tablet, 2 tablet, oral, BID, Jeet Ramírez MD, 2 tablet at 03/29/17 0848 warfarin (COUMADIN) tablet 5 mg, 5 mg, oral, QPM, Ariana Bose DO, 5 mg at 03/28/172 OBJECTIVE: Last Vitals: BP 109/67 | Pulse 100 | Temp 36.9 C (98.4 F) | RR 20 | Ht 1.75 m (5' 8.9") | Wt 89.5 kg (197 lb 5 oz) | SpO2 97% | BMI 29.22 kg/(m^2) 24 Hour Vital Min/Max: Systolic (24hrs), Av , Min:81 , Max:121 Diastolic (24hrs), Av, Min:43, Max:73 Pulse Min: 92 Max: 101 Temp Min: 36.5 C (97.7 F) Max: 36.9 C (98.4 F) Resp Min: 14 Max: 20 SpO2 Min: 95 % Max: 98 % Intake/Output Summary (Last 24 hours) at 03/29/17 0932 Last data filed at 03/29/17 0847 Gross per 24 hour Intake 2028.71 ml Output 2360 ml Net -331.29 ml PHYSICAL EXAMINATION: General: Elderly man, laying in bed, no distress, alert and oriented x2 (not time), +inatte ntion Neck: Supple, JVP not elevated Cardiovascular: regular rate and rhythm,, no murmurs, gallops, or rubs appreciated. Lungs: Unlabored breathing. Clear to auscultation bilaterally without crackles, rhonchi, or wheezes. Abd: Soft, nontender, and nondistended. Left groin: dressing clean/dry/intact with minor surrounding ecchymosis Ext: No edema. Warm and well-perfused. Chronic venous stasis changes. LABS/IMAGING/EKG: I have reviewed new data available in the electronic medical record. Not able findings Include: Recent Labs 03/23/17 0200 03/24/17 0012 03/25/17 0052 03/26/17 0337 03/28/17 1418 03/28/17 1727 03/28/17 1846 03/28/17 2156 03/29/17 0736 GLU 127* < > 164* < > 128* < > 114* < > 128* 112* 129* 133* 121* BUN 48* -- 47* -- 47* -- 45* < > 48* 47* -- -- 49* CR 1.56* -- 1.52* -- 1.48* -- 1.31* < > 1.45* 1.40* -- -- 1.50* ALB 2.1* -- 2.1* -- 2.2* -- 2.2* -- -- -- -- -- -- CA 7.7* -- 8.1* -- 8.3* -- 8.5* < > 8.5* 9.0 -- -- 8.9 PO4 4.9* -- 4.6 -- 4.8* -- -- -- -- -- -- -- -- NA 140 -- 133* -- 134* -- 135* < > 129* 132* -- -- 131* CL 101 -- 97 -- 100 -- 104 < > 99 101 -- -- 102 BICARB 30 -- 27 -- 27 -- 22 < > 23 22 -- -- 21 < > = values in this interval not displayed. CBC with diff last 72 hours (or 3 results) - Refreshable Recent Labs 03/27/17 0351 03/28/17 0413 03/29/17 0736 WBC 14.20* 11.82* 11.48* HB 8.3* 8.4* 9.4* HCT 25.6* 25.7* 28.2* PLT 383 406* 477* NEUTROPERC 74.4* 74.7* 76.4* LYMPHPERC 14.4* 14.8* 12.6* MONOPERC 7.5 7.0 7.8 BASOPERC 0.2 0.2 0.3 EOSPERC 1.1 0.9* 0.7* Lab Results Component Value Date INRPT 2.48 (H) 03/29/2017 from 1.93 CBGs 93-128 Sputum cx 03/18 no growth Blood cx 03/18 final no growth ASSESSMENT/PLAN: 61M with PMH notable for 18PYH tobacco smoking, HL, HD, pre-diabetes and chronic pain admit [facility] 03/15 in transfer from OSH following STEMI complicated by cardiogenic shock necessitating IABP and ECMO, now with acute systolic heart failure , transferred out to [facility] 03/25 for ongo ing optimization of medical therapy and diuresis, also followed by Advanced Heart Failure se rvice. #Acute cardiogenic shock in the setting of STEMI #Acute systolic heart failure Pt transferred in acute cardiogenic shock requiring IABP (removed 03/16/17) and pressors (CHANG bourgeois). VA ECMO started on arrival. He was rapidly weaned from pressors and IABP was re moved HD1. Decannulated 03/19. Diuresed with furosemide gtt and started on po afterload reduc tion and low-dose beta blockade. Most recent TTE with EF 20-25%. Currently doing well and ap pears euvolemic to mildly hypovolemic (given hemoconcentration on CBC today and hypotension overnight as well as clinical exam dry). - hold diuresis today (got torsemide 40mg yesterday) - close monitoring of renal function and electrolytes - Continue metoprolol succinate 25mg daily - Continue lisinopril 5mg BID for now - Continue eplerenone 50mg daily - Plan for LifeVest for VT/VF protection in the short term as he recovers (too soon for ICD consideration); appreciate HF team/CM coordination - Continue telemetry for now - Strict I/Os, Daily weights, 2LFR, 2g NA - Repeat TTE on Thursday - Appreciate advanced heart failure involvement and recommendations #CAD, s/p STEMI #ANY x 2 (LM/LAD, LCx) Pt presented to OSH with sx concerning for ACS and was found to have anterior STEMI with 99 % proximal LAD lesion and 100% distal LM occlusion, with subsequent acute dissection/thrombo sis of L main. S/p revascularization via PCI of LM/LAD and LCX, prior to transfer. Currently on clopidogrel (ASA held after warfarin/heparin started, as below), BB, ACEi, statin. - Continue clopidogrel 75mg po daily - Continue atorvastatin 40mg po daily - Continue beta clotilde and ACEi as above #Delirium Noted in CVICU and continues to wax and wane Currently A/Ox3, but seems to be waxing and w aning. Likely related to prolonged hospital stay, recent critical illness and exacerbated by opiates for pain control, multiple attached lines, constipation. (telemetry and heparin dr devi and SCDs) -Decreasing oxycodone from 15mg q6 hours to 10mg q4 hours; consider other pain control such as Duloxetine for chronic pain -Melatonin 3mg qhs -Cont seroquel 12.5mg qhs -Cont bowel regimen for constipation prevention; discussed using more of PRN Miralax or bis acodyl suppository today for constipation -Other delirium precautions: - Keep glasses and hearing aids available if needed - maintain sleep/wake cycle as much as possible - attempt to keep patient as active as possible: OOB TID, out of room in wheelchair - frequent reorientation, encourage family/caregivers to be available at bedside to reassu re patient - deescalate restraints as able (no reardon, continuous running IVs: heparin to end likely M onday, needs telemetry, no physical restraints, discontinued SCDs today) #Left groin pain Improving L groin pain at prior sheath site with stitch removed 03/27. No sign of infection or hematoma, but possibly some candidal infection/interrigo. -continue Nystatin powder -lidocaine cream PRN -appreciate wound care consult 03/26 -oxycodone as above -Cont APAP 1000 mg TID #Chronic pain in the setting of degenerative disc disease and cervical stenosis (noted on o utside records, on [place] 10 q8 as outpatient) -continue oxycodone 10mg q4 hours as above -consider other pain control such as Duloxetine 30mg daily for chronic pain #JAVON thrombus Noted on MARKY in the OR during ECMO decannulation. Currently on heparin gtt bridge to warfar in, INR therapeutic today. - anticoagulation with warfarin, pharmacist assistance appreciated - Bridge with heparin for now, will discontinue if remains INR > 2 tomorrow AM - daily INR #Deconditioning Pt is severely deconditioned in the setting of prolonged CVICU stay and profound illness. P T/OT consulting and recommend 24 hour skilled care on discharge. -CM looking for skilled placement; appreciate assistance #Risk for malnutrition Very little PO intake. Previously had dobhoff feeding tube in the CVICU.Nutrition assistanc e appreciated. -Calorie count ongoing -Encouraging PO intake #Leukocytosis, improving Continues to improve day by day, now stable at 11. Concern for aspiration pneumonia early i n admission given persistent RUL infiltrate on imaging. S/p 7d course of Zosyn 03/22/17. Inte rmittently on vancomycin during that time as well, dc'd 03/20/17. BlCx and SpCx 03/18 negative . UA done from reardon 03/25 with some LE, but no bacteria, suspect this is from reardon rather t petty true UTI or CAUTI, and now reardon has been removed 03/26. No recent fevers. No current antonio rrhea, though is at risk of C diff. - Trend daily CBc #Anemia, normocytic Pt noted to have anemia on H&P. Hct dropped abruptly from 44 to 32 during first day at [facility] , with addition decline to 24 the following day. Has received 3U PRBC so far this admission. Currently stable Hct/Hgb. Suspect acute initial drop during first 2-3 days of admission was related to acute blood loss anemia in setting of IABP, ECMO, multiple lines, very frequent lab monitoring. No overt clinical e/o bleeding since admission. Given current stability, haider l hold on further evaluation. -Trend CBC #AYLIN Improving. Cr elevated on admit to peak of 1.8 in the setting of cardiogenic shock, with mckeon bsequent improvement and stabilization ~1.3-1.4 (though 1.5 today) with hemodynamic support and medical management. Also noted to have elevated CK ~10K on admission, with subsequent do wnward trend. Good UOP. Unclear baseline, and reviewed records from PCP today--without any r ecent chemistries. sCr ~1.3-4 may be his new baseline. - Trend BMP #Pre-diabetes On Metformin as an outpatient. Last A1c 5.6 on 03/26, but unlikely to be accurate given rece nt RBC transfusions. Current CBGs at goal. - Continue NPH 2U q12h - Continue CBG QAC/HS with SSI #Thrombocytopenia, resolved --> thrombocytosis today Plts on the high side at admission, declined to marilee of 68 03/17 concerning for destructive +/- consumptive process in the setting of acute illness and ECMO/IABP. Now elevated to 480s today likely due to hemoconcentration in the setting of a little overdiuresis. #Acute hypoxemic respiratory failure, resolved In setting of STEMI and cardiogenic shock. E TT placed 03/15, extubated uneventfully 03/22. No current O2 requirement. Chronic issues: #AAA, infrarenal Noted on abdominal arterial/venous duplex 03/17. 3.9cm. Proximal Ao and supra-renal Ao obscu red by overlying bowel gas. - Encourage follow up with PCP following discharge #GERD, chronic - Continue famotidine 20mg bid CODE status: FULL Thromboembolic prophylaxis: Heparin gtt bridge to therapeutic warfarin Dispo plans: to SNF; appreciate CM assistance in finding Barriers for DC: heparin drip (bridge to therapeutic warfarin), delivery/approval of lifeve st Lines/drains/tubes: midline R arm, midline left arm Ariana Bose DO [employer] Engineering Superintendentmetal dealer Clinical Hospitalist and Medicine Teaching Service Division of Hospital Medicine [facility] Pager [phone] [facility] DEPARTMENT: Hosp- [id number] Place of Service: - Date of Service: 03/26/2017 CSN: [id number] Modifiers:GC Resident Involved: Yes Suggested CPT: 01930 Subsequent Visit Detailed/High complexity 35 min Ariana Ivy DO - 03/28/2017 8: 06 AM PDT CLINICAL HOSPITALIST SERVICE PROGRESS NOTE PATIENT'S NAME/MRN: Ron Mckeon/[id number] HOSPITAL DAY: #13 24-HOUR EVENTS & SUBJECTIVE: -furosemide 60mg IV once yesterday, net negative 500mL yesterday, weight continues to downt rend 93 kg today (last 106 a few days ago) -more pain at the left groin site last night, extra dose of oxycodone given (45mg +extra 10 mg used yesterday from 105mg the day prior) -continues on heparin bridge to therapeutic warfarin -patient with more waxing and waning mental status, inattention per nursing -patient with low PO intake; calorie count going -no chest pain, palpitations, lightheadedness, dyspnea Inpatient Medication list has been reviewed by me today. Current Facility-Administered Medications: acetaminophen (TYLENOL) tablet 1,000 mg, 1,000 m g, oral, TID, Ivette Chaudhry MD artificial tears (dextran 70-hypromellose) (NATURE'S TEARS) 0.1-0.3 % ophthalmic drops 1 dr op, 1 drop, Both Eyes, PRN, KULWINDER Bella atorvastatin (LIPITOR) tablet 40 mg, 40 mg, oral, DAILY, Jeet Ramírez MD, 40 mg at 0942 bisacodyl (DULCOLAX) suppository 10 mg, 10 mg, rectal, DAILY PRN, Gaurav Hobbs PA-C cholecalciferol (Vitamin D3) (VITAMIN D-3) tablet 1,000 Units, 1,000 Units, oral, DAILY, Amol Alvarado MD, 1,000 Units at 03/27/17 0942 clopidogrel (PLAVIX) tablet 75 mg, 75 mg, oral, DAILY, Jeet Ramírez MD, 75 mg at 03/27 dextrose 50 % in water IV 25 mL, 25 mL, intravenous, PRN, Jose Ramon Alvarado MD eplerenone (INSPRA) tablet 50 mg, 50 mg, oral, DAILY, Jeet Ramírez MD, 50 mg at 950 famotidine (PEPCID) tablet 20 mg, 20 mg, oral, BID, Jeet Ramírez MD, 20 mg at 03/27/172207 glucagon (GLUCAGEN) injection 1 mg, 1 mg, intramuscular, PRN, Jose Ramon Alvarado MD glucose chewable tablet 16 g, 16 g, oral, PRN, Jose Ramon Alvarado MD heparin in D5W 25,000 Units/250 mL (100 Units/mL) IV infusion (RTU), 1-2,500 Units/hr, intr avenous, CONTINUOUS, Jose Ramon Alvarado MD, Last Rate: 22 mL/hr at 03/28/17722, 2,200 Uni ts/hr at 03/28/17722 insulin lispro (HUMALOG) injection, , subcutaneous, QID, Jose Ramon Alvarado MD, 2 Units at 03/27/171955 insulin NPH (HUMULIN N) injection 2 Units, 2 Units, subcutaneous, Q12H (Scheduled), Salvador Alvarado MD, 2 Units at 03/27/171956 ipratropium-albuterol (DUO-NEB) nebulizer solution 3 mL, 3 mL, inhalation, Q6H PRN, Terry Ochoa MD lisinopril (PRINIVIL) tablet 5 mg, 5 mg, oral, BID, Ariana Bose DO, 5 mg at 2207 melatonin tablet 3 mg, 3 mg, oral, QPM, Jeet Ramírez MD, 3 mg at 03/27/172207 menthol-zinc oxide (CALAZIME) topical paste 0.2%-16.5%, , topical, QID PRN, Carlos Low PA-C metoprolol succinate (TOPROL-XL) tablet 25 mg, 25 mg, oral, DAILY, Gaurav Hobbs PA-C, 25 mg at 03/27/17941 [DISCONTINUED] oxyCODONE (immediate release) (ROXICODONE) tablet 5-10 mg, 5-10 mg, oral, Q3 H PRN, 10 mg at 03/24/17 2200 OR oxyCODONE (immediate release) (ROXICODONE) liquid 10-15 mg, 10-15 mg, oral, Q6H PRN, Ariana Bose DO, 15 mg at 03/28/17 0659 polyethylene glycol (MIRALAX) packet 17 g, 17 g, oral, BID, Gaurav Hobbs PA-C polyethylene glycol (MIRALAX) packet 34 g, 34 g, oral, TID PRN, Gaurav Hobbs PA-C probiotic yogurt (MARTIN'S YOGURT), , oral, BID, Jose Ramon Alvarado MD, 1 each at 03/26/17 1002 QUEtiapine (SEROQUEL) tablet 12.5 mg, 12.5 mg, oral, HS, Jeet Ramírez MD, 12.5 mg at 0 03/27/178 senna-docusate (SENOKOT S) 8.6-50 mg 2 tablet, 2 tablet, oral, BID, Jeet Ramírez MD, 2 tablet at 03/27/17 2208 warfarin (COUMADIN) tablet 5 mg, 5 mg, oral, QPM, Ariana Bose DO OBJECTIVE: Last Vitals: BP 110/56 | Pulse 91 | Temp 36.6 C (97.9 F) | RR 16 | Ht 1.75 m (5' 8.9") | Wt 93.4 kg (205 lb 14.6 oz) | SpO2 97% | BMI 30.5 kg/(m^2) 24 Hour Vital Min/Max: Systolic (24hrs), Av , Min:100 , Max:122 Diastolic (24hrs), Av, Min:55, Max:74 Pulse Min: 91 Max: 104 Temp Min: 36.5 C (97.7 F) Max: 36.7 C (98.1 F) Resp Min: 16 Max: 18 SpO2 Min: 96 % Max: 99 % Intake/Output Summary (Last 24 hours) at 03/28/17 0807 Last data filed at 03/28/17 0436 Gross per 24 hour Intake 2575.17 ml Output 2790 ml Net -214.83 ml PHYSICAL EXAMINATION: General: Elderly man, laying in bed, no distress, alert and oriented x3, +inattention Neck: Supple, JVP not visible over the clavicle sitting up Cardiovascular: regular rate and rhythm,, no murmurs, gallops, or rubs appreciated. No yumiko a. Lungs: Unlabored breathing. Clear to auscultation bilaterally without crackles, rhonchi, or wheezes. Abd: Soft, nontender, and nondistended. Left groin: small open area with surrounding ecchymosis, no hematoma, some erythema in the inguinal fold Skin: Warm and well-perfused. Chronic venous stasis changes. LABS/IMAGING/EKG: I have reviewed new data available in the electronic medical record. Not able findings Include: Recent Labs 03/23/17 0200 03/24/17 0012 03/25/17 0052 03/26/17 0337 03/27/17 0351 03/28/17 0413 03/28/17 1031 03/28/17 1322 03/28/17 1418 GLU 127* < > 164* < > 128* < > 114* < > 117* < > 119* 123* 93 128* BUN 48* -- 47* -- 47* -- 45* < > 47* -- 47* -- -- 48* CR 1.56* -- 1.52* -- 1.48* -- 1.31* < > 1.34* -- 1.33* -- -- 1.4 5* ALB 2.1* -- 2.1* -- 2.2* -- 2.2* -- -- -- -- -- -- -- CA 7.7* -- 8.1* -- 8.3* -- 8.5* < > 8.3* -- 8.6 -- -- 8.5* PO4 4.9* -- 4.6 -- 4.8* -- -- -- -- -- -- -- -- -- NA 140 -- 133* -- 134* -- 135* < > 135* -- 133* -- -- 129* CL 101 -- 97 -- 100 -- 104 < > 102 -- 100 -- -- 99 BICARB 30 -- 27 -- 27 -- 22 < > 24 -- 22 -- -- 23 < > = values in this interval not displayed. CBC with diff last 72 hours (or 3 results) - Refreshable Recent Labs 03/26/17 0337 03/27/17 0351 03/28/17 0413 WBC 15.15* 14.20* 11.82* HB 8.3* 8.3* 8.4* HCT 25.2* 25.6* 25.7* PLT 349 383 406* NEUTROPERC 78.1* 74.4* 74.7* LYMPHPERC 12.6* 14.4* 14.8* MONOPERC 5.6 7.5 7.0 BASOPERC 0.2 0.2 0.2 EOSPERC 0.7* 1.1 0.9* Lab Results Component Value Date INRPT 1.93 (H) 03/28/2017 from 1.41 CBGs 117-148 Sputum cx 03/18 no growth Blood cx 03/18 final no growth ASSESSMENT/PLAN: 61M with PMH notable for 18PYH tobacco smoking, HL, HD, pre-diabetes and chronic pain admit macho 03/15 in transfer from OSH following STEMI complicated by cardiogenic shock necessitating IABP and ECMO, now with acute systolic heart failure , transferred out to [facility] 03/25 for ongo ing optimization of medical therapy and diuresis, also followed by Advanced Heart Failure se rochelle. #Acute cardiogenic shock in the setting of STEMI #Acute systolic heart failure Pt transferred in acute cardiogenic shock requiring IABP (removed 03/16/17) and pressors (CHANG bourgeois). [facility] ECMO started on arrival. He was rapidly weaned from pressors and IABP was re moved HD1. Decannulated 03/19. Diuresed with furosemide gtt and started on po afterload reduc tion (uptitrating) and low-dose beta blockade. Most recent TTE with EF 20-25%. Currently doi ng well and appears euvolemic. - Transition from IV to PO diuresis: torsemide 40mg + KCl 20mEq this AM - close monitoring of renal function and electrolytes - Continue metoprolol succinate 25mg daily - Continue lisinopril 5mg BID - Continue eplerenone 50mg daily - Plan for LifeVest for VT/VF protection in the short term as he recovers (too soon for ICD consideration); appreciate HF team/CM coordination - Continue telemetry for now - Strict I/Os, Daily weights, 2LFR, 2g NA - Repeat TTE on Thursday - Appreciate advanced heart failure involvement and recommendations #CAD, s/p STEMI #ANY x 2 (LM/LAD, LCx) Pt presented to OSH with sx concerning for ACS and was found to have anterior STEMI with 99 % proximal LAD lesion and 100% distal LM occlusion, with subsequent acute dissection/thrombo sis of L main. S/p revascularization via PCI of LM/LAD and LCX, prior to transfer. Currently on clopidogrel (ASA held after warfarin/heparin started, as below), BB, ACEi, statin. - Continue clopidogrel 75mg po daily - Continue atorvastatin 40mg po daily - Continue beta clotilde and ACEi as above #Delirium Noted in CVICU, also picked up this AM by excellent nursing team with inattention predomina ntly (spelling world, serial As). Currently A/Ox3, but seems to be waxing and waning. -Minimize opiates -Melatonin 3mg qhs -Cont seroquel 12.5mg qhs -Cont bowel regimen for constipation prevention -Delirium precautions: - Keep glasses and hearing aids available if needed - maintain sleep/wake cycle as much as possible - attempt to keep patient as active as possible even if this is dangling TID on bed and/or having meals in chair OOB TID - offer non-pharmacologic interventions at night such as ear plugs, herbal tea to help wit h sleep - frequent reorientation, encourage family/caregivers to be available at bedside to reassu re patient - deescalate restraints as able (no reardon, continuous running IVs: heparin to end likely M on, needs telemetry but will discuss further with cards, no physical restraints) #Left groin pain #Chronic pain in the setting of degenerative disc disease and cervical stenosis (noted on o utside records, on [place] q8 as outpatient) Improving L groin pain at prior sheath site with stitch removed 03/27. No sign of infection or hematoma, but possibly some candidal infection/interrigo. -start Nystatin powder -lidocaine cream PRN -appreciate wound care consult 03/26 -oxycodone from 10-15mg po q6 PRN today, attempt to continue to wean as tolerated -Cont APAP 1000 mg TID given lack of other good alternatives to narcotics #JAVON thrombus Noted on MARKY in the OR during ECMO decannulation. Currently on heparin gtt bridge to warfar in, INR remains subtherapeutic. - anticoagulation with warfarin, pharmacist assistance appreciated - Bridge with heparin till therapeutic - daily INR #Deconditioning Pt is severely deconditioned in the setting of prolonged CVICU stay and profound illness. P T/OT consulting and recommend 24 hour skilled care on discharge. -CM looking for skilled placement; appreciate assistance #Risk for malnutrition Nutrition assistance appreciated. -Calorie count ongoing #Leukocytosis, improving Continues to improve day by day, now 11. Concern for aspiration pneumonia early in admissio n given persistent RUL infiltrate on imaging. S/p 7d course of Zosyn 03/22/17. Intermittently on vancomycin during that time as well, dc'd 03/20/17. BlCx and SpCx 03/18 negative. UA done from reardon 03/25 with some LE, but no bacteria, suspect this is from reardon rather than true U TI or CAUTI, and now reardon has been removed 03/26. No recent fevers. No current diarrhea, tho ugh is at risk of C diff. - Trend daily CBC - monitor for any urinary sx; hold off on abx for now - BlCx and repeat CXR for any clinical decompensation or fever - Monitor for s/sx C diff given recent abx course; cont probiotics #Anemia, normocytic Pt noted to have anemia on H&P. Hct dropped abruptly from 44 to 32 during first day at [facility] , with addition decline to 24 the following day. Has received 3U PRBC so far this admission. Currently stable with Hct at 24 past 3d. Suspect acute initial drop during first 2-3 days o f admission was related to acute blood loss anemia in setting of IABP, ECMO, multiple lines, very frequent lab monitoring. No overt clinical e/o bleeding since admission. Given current stability, will hold on further evaluation. -Trend CBC -Lab draws in pedi tubes, minimize unnecessary sticks #AYLIN Improving. Cr elevated on admit to peak of 1.8 in the setting of cardiogenic shock, with mckeon bsequent improvement and stabilization ~1.3-1.4 now with hemodynamic support and medical man agement. Also noted to have elevated CK ~10K on admission, with subsequent downward trend. G ood UOP. Unclear baseline, and reviewed records from PCP today--without any recent chemistri es. sCr ~1.3 may be his new baseline. - Trend BMP #Pre-diabetes On Metformin as an outpatient. Last A1c 5.6 on 03/26, but unlikely to be accurate given rece nt RBC transfusions. - Continue CBG QAC/HS with SSI - Continue NPH 2U q12h - dc'd lispro 1U tid AC today Resolved issues: #Thrombocytopenia, resolved Plts on the high side at admission, declined to marilee of 68 03/17 concerning for destructive +/- consumptive process in the setting of acute illness and ECMO/IABP. Now wnl. #Acute hypoxemic respiratory failure, resolved In setting of STEMI and cardiogenic shock. E TT placed 03/15, extubated uneventfully 03/22. No current O2 requirement. Chronic issues: #AAA, infrarenal Noted on abdominal arterial/venous duplex 03/17. 3.9cm. Proximal Ao and supra-renal Ao obscu red by overlying bowel gas. - Encourage follow up with PCP following discharge #GERD, chronic - Continue famotidine 20mg bid CODE status: FULL Thromboembolic prophylaxis: Heparin gtt bridge to therapeutic warfarin Dispo plans: to SNF; appreciate CM assistance in finding Barriers for DC: heparin drip (bridge to therapeutic warfarin), delivery/approval of lifeve st Lines/drains/tubes: midline R arm, midline left arm Ariana Bose DO Mine Engineering Superintendentmetal dealer Clinical Hospitalist and Medicine Teaching Service Division of Hospital Medicine [facility] Pager [phone] [facility] DEPARTMENT: Hosp- [phone] Place of Service: - Date of Service: 03/26/2017 CSN: [id number] Modifiers:GC Resident Involved: Yes Suggested CPT: 97371 Subsequent Visit Detailed/High complexity 35 min Ariana Ivy DO - 03/27/2017 7: 08 AM PDT CLINICAL HOSPITALIST SERVICE PROGRESS NOTE PATIENT'S NAME: Ron Mckeon TODAY'S DATE: 03/27/2017 HOSPITAL DAY: #12 24-HOUR EVENTS & SUBJECTIVE: -Furosemide 60mg IV BID given yesterday, net negative 2 L yesterday -PT/OT consults yesterday -continues on heparin bridge to therapeutic warfarin -Left groin site this AM feeling better; wound care consult yesterday and stitch removed by CT surg -No chest pain, palpitations, lightheadedness, dyspnea, edema improved significantly -Family visiting at bedside (son Shahab and grandchildren) -105mg oxycodone used this AM Inpatient Medication list has been reviewed by me today. Current Facility-Administered Medications: acetaminophen (TYLENOL) tablet 650 mg, 650 mg, o ral, Q4H, Gaurav Hobbs PA-C, 650 mg at 03/27/17 0339 artificial tears (dextran 70-hypromellose) (NATURE'S TEARS) 0.1-0.3 % ophthalmic drops [address] dr marvin, 1 drop, Both Eyes, PRN, Venice Butcher, IZZYP atorvastatin (LIPITOR) tablet 40 mg, 40 mg, oral, DAILY, Jeet Ramírez MD, 40 mg at 0929 bisacodyl (DULCOLAX) suppository 10 mg, 10 mg, rectal, DAILY PRN, Gaurav Hobbs PA-C calcium gluconate IV 1 gram in NS (PREMADE), 1 g, intravenous, PRN, Gaurav Hobbs PA-C cholecalciferol (Vitamin D3) (VITAMIN D-3) tablet 1,000 Units, 1,000 Units, oral, DAILY, Amol Alvarado MD, 1,000 Units at 03/26/17 0930 clopidogrel (PLAVIX) tablet 75 mg, 75 mg, oral, DAILY, Jeet Ramírez MD, 75 mg at 03/26 0929 dextrose 5%-NaCl 0.45% IV infusion, 5 mL/hr, intravenous, CONTINUOUS, CLAUDIO Alas, Last Rate: 5 mL/hr at 03/27/17 0503, 5 mL/hr at 03/27/17 0503 dextrose 5%-NaCl 0.45% IV infusion, 5-400 mL, intravenous, PRN, Gaurav Hobbs PA-C, Sto pped at 03/17/17 0800 dextrose 50 % in water IV 25 mL, 25 mL, intravenous, PRN, Jose Ramon Alvarado MD eplerenone (INSPRA) tablet 50 mg, 50 mg, oral, DAILY, Jeet Ramírez MD, 50 mg at 1745 famotidine (PEPCID) tablet 20 mg, 20 mg, oral, BID, Jeet Ramírez MD, 20 mg at 03/26/17 214 furosemide (LASIX) injection 60 mg, 60 mg, intravenous, BID ( and ), Gaurav Hobbs PA-C, 60 mg at 03/26/17 165 glucagon (GLUCAGEN) injection 1 mg, 1 mg, intramuscular, PRN, Jose Ramon Alvarado MD glucose chewable tablet 16 g, 16 g, oral, PRN, Jose Ramon Alvarado MD heparin in D5W 25,000 Units/250 mL (100 Units/mL) IV infusion (RTU), 1-2,500 Units/hr, intr avenous, CONTINUOUS, Jose Ramon Alvarado MD, Last Rate: 23 mL/hr at 03/27/17 0503, 2,300 Uni ts/hr at 03/27/17 0503 insulin lispro (HUMALOG) injection 1 Units, 1 Units, subcutaneous, TID W/MEALS, Jose Ramon Alvarado MD, 1 Units at 03/26/17 0931 insulin lispro (HUMALOG) injection, , subcutaneous, QID, Jose Ramon Alvarado MD, 1 Units at 03/26/17 2209 insulin NPH (HUMULIN N) injection 2 Units, 2 Units, subcutaneous, Q12H (Scheduled), Salvador Alvarado MD, 2 Units at 03/26/17 220 ipratropium-albuterol (DUO-NEB) nebulizer solution 3 mL, 3 mL, inhalation, Q6H PRN, Terry Ochoa MD lisinopril (PRINIVIL) tablet 5 mg, 5 mg, oral, BID, Ariana Bose DO melatonin tablet 3 mg, 3 mg, oral, QPM, Jeet Ramírez MD, 3 mg at 03/26/172144 menthol-zinc oxide (CALAZIME) topical paste 0.2%-16.5%, , topical, QID PRN, Carlos Low PA-C metoprolol succinate (TOPROL-XL) tablet 25 mg, 25 mg, oral, DAILY, Gaurav Hobbs PA-C, 25 mg at 03/26/17 0930 [DISCONTINUED] oxyCODONE (immediate release) (ROXICODONE) tablet 5-10 mg, 5-10 mg, oral, Q3 H PRN, 10 mg at 03/24/17 2200 OR oxyCODONE (immediate release) (ROXICODONE) liquid 10-15 mg, 10-15 mg, oral, Q3H PRN, Terry Ochoa MD, 15 mg at 03/27/17 0340 polyethylene glycol (MIRALAX) packet 17 g, 17 g, oral, BID, Gauarv Hobbs PA-C polyethylene glycol (MIRALAX) packet 34 g, 34 g, oral, TID PRN, Gaurav Hobbs PA-C potassium chloride SR (K-DUR) tablet 20 mEq, 20 mEq, oral, BID, Ariana Bose DO, 20 mEq at 03/26/172144 probiotic yogurt (MARTIN'S YOGURT), , oral, BID, Jose Ramon Alvarado MD, 1 each at 03/26/17 1002 QUEtiapine (SEROQUEL) tablet 12.5 mg, 12.5 mg, oral, HS, Jeet Ramírez MD, 12.5 mg at 0 03/26/172144 senna-docusate (SENOKOT S) 8.6-50 mg 2 tablet, 2 tablet, oral, BID, Jeet Ramírez MD, 2 tablet at 03/25/172056 warfarin (COUMADIN) tablet 10 mg, 10 mg, oral, QPM, Terry Ochoa MD, 10 mg at 03/26/17 214 5 OBJECTIVE: Last Vitals: BP 109/49 | Pulse 103 | Temp 36.9 C (98.4 F) | RR 17 | Ht 1.75 m (5' 8.9") | Wt 106.4 kg (234 lb 9.1 oz) | SpO2 99% | BMI 34.74 kg/(m^2) 24 Hour Vital Min/Max: Systolic (24hrs), Av , Min:109 , Max:138 Diastolic (24hrs), Av, Min:49, Max:76 Pulse Min: 103 Max: 108 Temp Min: 36.6 C (97.9 F) Max: 37 C (98.6 F) Resp Min: 17 Max: 20 SpO2 Min: 94 % Max: 99 % Intake/Output Summary (Last 24 hours) at 03/27/17 0710 Last data filed at 03/27/17 0600 Gross per 24 hour Intake 1513.18 ml Output 3550 ml Net -2036.82 ml PHYSICAL EXAMINATION: General: Elderly man, laying in bed, no distress, alert and oriented, cooperative Neck: Supple, JVP to 8-9cm at 45 degrees Cardiovascular: mildly tachycardic but regular, no murmurs, gallops, or rubs appreciated. T race peripheral edema to the knees. Lungs: Unlabored breathing. Clear to auscultation bilaterally without crackles, rhonchi, or wheezes. Abd: Soft, nontender, and nondistended. Left groin: ecchymosis with suture removed, no significant erythema and small open area devon ears clean, dry, healing Skin: Warm and well-perfused. Chronic venous stasis changes. LABS/IMAGING/EKG: I have reviewed new data available in the electronic medical record. Not able findings Include: Recent Labs 03/23/17 0200 03/24/17 0012 03/25/17 0052 03/26/17 0337 03/26/17 1603 03/26/17 1730 03/26/17 2201 03/27/17 0351 GLU 127* < > 164* < > 128* < > 114* < > 111* 94 157* 117* BUN 48* -- 47* -- 47* -- 45* -- 43* -- -- 47* CR 1.56* -- 1.52* -- 1.48* -- 1.31* -- 1.31* -- -- 1.34* ALB 2.1* -- 2.1* -- 2.2* -- 2.2* -- -- -- -- -- CA 7.7* -- 8.1* -- 8.3* -- 8.5* -- 8.6 -- -- 8.3* PO4 4.9* -- 4.6 -- 4.8* -- -- -- -- -- -- -- NA 140 -- 133* -- 134* -- 135* -- 136 -- -- 135* CL 101 -- 97 -- 100 -- 104 -- 103 -- -- 102 BICARB 30 -- 27 -- 27 -- 22 -- 23 -- -- 24 < > = values in this interval not displayed. CBC with diff last 72 hours (or 3 results) - Refreshable Recent Labs 03/25/17 0052 03/26/17 0337 03/27/17 0351 WBC 17.00* 15.15* 14.20* HB 7.8* 8.3* 8.3* HCT 24.0* 25.2* 25.6* PLT 299 349 383 NEUTROPERC 80.9* 78.1* 74.4* LYMPHPERC 9.4* 12.6* 14.4* MONOPERC 5.7 5.6 7.5 BASOPERC 0.2 0.2 0.2 EOSPERC 0.5* 0.7* 1.1 Lab Results Component Value Date INRPT 1.56 (H) 03/27/2017 from 1.41 CBGs 111-157 Sputum cx 03/18 no growth Blood cx 03/18 final no growth CBGs 111-157 ASSESSMENT/PLAN: 61M with PMH notable for 18PYH tobacco smoking, HL, HD, pre-diabetes and chronic pain admit macho 03/15 in transfer from OSH following STEMI complicated by cardiogenic shock necessitating IABP and ECMO, now with acute systolic heart failure , transferred out to [facility] 03/25 for ongo ing optimization of medical therapy and diuresis, also followed by Advanced Heart Failure se rvice. #Acute cardiogenic shock in the setting of STEMI #Acute systolic heart failure Pt transferred in acute cardiogenic shock requiring IABP (removed 03/16/17) and pressors (CHANG bourgeois). ECMO started on arrival. He was rapidly weaned from pressors and IABP was remov ed HD1. Decannulated 03/19. Diuresed with furosemide gtt and started on po AL reduction (upti trating) and low-dose beta blockade. Most recent TTE with EF 20-25%. Currently doing well wi th improving volume status, approaching euvolemic state. - Continue diuresis: furosemide 60mg IV once today to start; goal net neg ~1L, can re-dose later if needed - Continue KCl 20mEq with each diuretic dose - close monitoring of renal function and electrolytes - Continue metoprolol succinate 25mg daily - Transition from captopril 25mg q8h to lisinopril 5mg BID - Continue eplerenone 50mg daily - Plan for LifeVest for VT/VF protection in the short term as he recovers; appreciate HF te am/CM coordination - Strict I/Os, Daily weights, 2LFR, 2g NA - Appreciate advanced heart failure involvement and recommendations #CAD, s/p STEMI #ANY x 2 (LM/LAD, LCx) Pt presented to OSH with sx concerning for ACS and was found to have anterior STEMI with 99 % proximal LAD lesion and 100% distal LM occlusion, with subsequent acute dissection/thrombo sis of L main. S/p revascularization via PCI of LM/LAD and LCX, prior to transfer. Currently on clopidogrel (ASA held after warfarin/heparin started, as below), BB, ACEi, statin. - Continue clopidogrel 75mg po daily - Continue atorvastatin 40mg po daily - Continue beta clotilde and ACEi as above #Left groin pain #Chronic pain in the setting of degenerative disc disease and cervical stenosis Improving L groin pain at prior sheath site with stitch removed 03/27. No sign of infection or hematoma. -appreciate wound care consult 03/26 -oxycodone from 10-15mg po q3h--> q6 PRN today, attempt to continue to wean as tolerated -Cont APAP RTC given lack of other good alternatives to narcotics #JAVON thrombus Noted on MARKY in the OR during ECMO decannulation. Currently on heparin gtt bridge to warfar in, INR remains subtherapeutic. - anticoagulation with warfarin, pharmacist assistance appreciated - Bridge with heparin till therapeutic - daily INR #Deconditioning Pt is severely deconditioned in the setting of prolonged CVICU stay and profound illness. P T/OT consulting and recommend 24 hour skilled care on discharge. -CM looking for skilled placement; appreciate assistance #Risk for malnutrition Nutrition assistance appreciated. -Calorie count ongoing #Leukocytosis, improving Improving today from 17 to 14 today. Concern for aspiration pneumonia early in admission gi leonardo persistent RUL infiltrate on imaging. S/p 7d course of Zosyn 03/22/17. Intermittently on vancomycin during that time as well, dc'd 03/20/17. BlCx and SpCx 03/18 negative. UA done from reardon 03/25 with some LE, but no bacteria, suspect this is from reardon rather than true UTI o r CAUTI, and now reardon has been removed 03/26. No recent fevers. No current diarrhea, though is at risk of C diff. - Trend daily CBC - monitor for any urinary sx; hold off on abx for now - BlCx and repeat CXR for any clinical decompensation or fever - Monitor for s/sx C diff given recent abx course; cont probiotics #Anemia, normocytic Pt noted to have anemia on H&P. Hct dropped abruptly from 44 to 31 during first day at [facility] , with addition decline to 24 the following day. Has received 3U PRBC so far this admission. Currently stable with Hct at 24 past 3d. Suspect acute initial drop during first 2-3 days o f admission was related to acute blood loss anemia in setting of IABP, ECMO, multiple lines, very frequent lab monitoring. No overt clinical e/o bleeding since admission. Given current stability, will hold on further evaluation. -Trend CBC -Lab draws in pedi tubes, minimize unnecessary sticks #AYLIN Improving. Cr elevated on admit to peak of 1.8 in the setting of cardiogenic shock, with mckeon bsequent improvement and stabilization ~1.3 now with hemodynamic support and medical managem ent. Also noted to have elevated CK ~10K on admission, with subsequent downward trend. Good UOP. Unclear baseline, and reviewed records from PCP today--without any recent chemistries. sCr 1.3 may be his new baseline. - Trend BMP #Pre-diabetes On Metformin as an outpatient. Last A1c 5.6 on 03/26, but unlikely to be accurate given rece nt RBC transfusions. - Continue CBG QAC/HS with SSI - Continue NPH 2U q12h and lispro 1U tid AC Resolved issues: #Thrombocytopenia, resolved Plts on the high side at admission, declined to marilee of 68 03/17 concerning for destructive +/- consumptive process in the setting of acute illness and ECMO/IABP. Now wnl. - CTM #Acute hypoxemic respiratory failure, resolved In setting of STEMI and cardiogenic shock. E TT placed 03/15, extubated uneventfully 03/22. No current O2 requirement. -CTM #Delirium, resolved Waxing/waning mental status noted in CVICU. Currently A/Ox3, appears to be at/near baseline . At high risk for recurrent delirium. -Melatonin 3mg qhs -Cont seroquel 12.5mg qhs -Cont bowel regimen for constipation prevention -Regulate sleep/wake cycle, minimize distractions Chronic issues: #AAA, infrarenal Noted on abdominal arterial/venous duplex 03/17. 3.9cm. Proximal Ao and supra-renal Ao obscu red by overlying bowel gas. - Encourage follow up with PCP following discharge #GERD, chronic - Continue famotidine 20mg bid CODE status: FULL Thromboembolic prophylaxis: Heparin gtt bridge to therapeutic warfarin Dispo plans: to SNF; appreciate CM assistance in finding Barriers for DC: heparin drip (bridge to therapeutic warfarin), delivery/approval of lifeve st, transition to oral diuretics Lines/drains/tubes: midline R arm, midline left arm Ariana Bose DO Mine Engineering Superintendentmetal dealer Clinical Hospitalist and Medicine Teaching Service Division of Hospital Medicine [facility] Pager [phone] [facility] DEPARTMENT: Hosp- [id number] Place of Service: - Date of Service: 03/26/2017 CSN: [id number] Modifiers:GC Resident Involved: Yes Suggested CPT: 59447 Subsequent Visit Detailed/High complexity 35 min Chapis Ivy DO - 03/26/2017 7:17 AM PDT . CLINICAL HOSPITALIST SERVICE PROGRESS NOTE PATIENT'S NAME: Ron Mckeon TODAY'S DATE: 03/26/2017 HOSPITAL DAY: #11 24-HOUR EVENTS & SUBJECTIVE: -Transferred out of the CVICU yesterday on furosemide drip and heparin bridge to therapeuti c warfarin -Furosemide drip off last night, net negative 2.3 L yesterday -Reardon removed yesterday -Patient with more pain at the left groin site this AM -No chest pain, palpitations, lightheadedness, dyspnea -Patient a bit more tired this AM, hoping to sleep at bit this AM Inpatient Medication list has been reviewed by me today. Current Facility-Administered Medications: acetaminophen (TYLENOL) tablet 650 mg, 650 mg, o ral, Q4H, Gaurav Hobbs PA-C, 650 mg at 03/26/17 0342 artificial tears (dextran 70-hypromellose) (NATURE'S TEARS) 0.1-0.3 % ophthalmic drops 1 dr op, 1 drop, Both Eyes, PRN, KULWINDER Bella atorvastatin (LIPITOR) tablet 40 mg, 40 mg, oral, DAILY, Jeet Ramírez MD, 40 mg at 0854 bisacodyl (DULCOLAX) suppository 10 mg, 10 mg, rectal, DAILY PRN, Gaurav Hobbs PA-C calcium gluconate IV 1 gram in NS (PREMADE), 1 g, intravenous, PRN, Gaurav Hobbs PA-C captopril (CAPOTEN) tablet 25 mg, 25 mg, oral, Q8H, KULWINDER Bella, 25 mg at 2145 cholecalciferol (Vitamin D3) (VITAMIN D-3) tablet 1,000 Units, 1,000 Units, oral, DAILY, Amol Alvarado MD, 1,000 Units at 03/25/17 2144 clopidogrel (PLAVIX) tablet 75 mg, 75 mg, oral, DAILY, Jeet Ramírez MD, 75 mg at 03/25 0855 dextrose 5%-NaCl 0.45% IV infusion, 5 mL/hr, intravenous, CONTINUOUS, CLAUDIO Alas, Last Rate: 5 mL/hr at 03/26/17 0528, 5 mL/hr at 03/26/17 0528 dextrose 5%-NaCl 0.45% IV infusion, 5-400 mL, intravenous, PRN, Gaurav Hobbs PA-C, Sto pped at 03/17/17 0800 dextrose 50 % in water IV 25 mL, 25 mL, intravenous, PRN, Jose Ramon Alvarado MD eplerenone (INSPRA) tablet 50 mg, 50 mg, oral, DAILY, Jeet Ramírez MD, 50 mg at 0855 famotidine (PEPCID) tablet 20 mg, 20 mg, oral, BID, Jeet Ramírez MD, 20 mg at 03/25/172057 furosemide (LASIX) injection 60 mg, 60 mg, intravenous, BID ( and ), Gaurav Hobbs PA-C glucagon (GLUCAGEN) injection 1 mg, 1 mg, intramuscular, PRN, Jose Ramon Alvarado MD glucose chewable tablet 16 g, 16 g, oral, PRN, Jose Ramon Alvarado MD heparin in D5W 25,000 Units/250 mL (100 Units/mL) IV infusion (RTU), 1-2,500 Units/hr, intr avenous, CONTINUOUS, Jose Ramon Alvarado MD, Last Rate: 23 mL/hr at 03/26/17526, 2,300 Uni ts/hr at 03/26/17526 insulin lispro (HUMALOG) injection 1 Units, 1 Units, subcutaneous, TID W/MEALS, Jose Ramon Alvarado MD, 1 Units at 03/25/17 0856 insulin lispro (HUMALOG) injection, , subcutaneous, QID, Jose Ramon Alvarado MD, 2 Units at 03/25/17 0856 insulin NPH (HUMULIN N) injection 2 Units, 2 Units, subcutaneous, Q12H (Scheduled), Salvador Alvarado MD, 2 Units at 03/25/172058 ipratropium-albuterol (DUO-NEB) nebulizer solution 3 mL, 3 mL, inhalation, Q6H PRN, Terry Ochoa MD melatonin tablet 3 mg, 3 mg, oral, QPM, Jeet Ramírez MD, 3 mg at 03/25/172057 menthol-zinc oxide (CALAZIME) topical paste 0.2%-16.5%, , topical, QID PRN, Carlos Low PA-C metoprolol succinate (TOPROL-XL) tablet 25 mg, 25 mg, oral, DAILY, Gaurav Hobbs PA-C [DISCONTINUED] oxyCODONE (immediate release) (ROXICODONE) tablet 5-10 mg, 5-10 mg, oral, Q3 H PRN, 10 mg at 03/24/17 2200 OR oxyCODONE (immediate release) (ROXICODONE) liquid 5-10 mg, 5-10 mg, oral, Q3H PRN, Gaurav Hobbs PA-C, 10 mg at 03/26/17 0643 polyethylene glycol (MIRALAX) packet 17 g, 17 g, oral, BID, Gaurav Hobbs PA-C polyethylene glycol (MIRALAX) packet 34 g, 34 g, oral, TID PRN, Gaurav Hobbs PA-C potassium chloride (KAOCHLOR) liquid 10% 20 mEq, 20 mEq, oral, BID, Jose Ramon Alvarado MD, 20 mEq at 03/25/172056 probiotic yogurt (MARTIN'S YOGURT), , oral, BID, Jose Ramon Alvarado MD QUEtiapine (SEROQUEL) tablet 12.5 mg, 12.5 mg, oral, HS, Jeet Ramírez MD, 12.5 mg at 0 03/25/172143 senna-docusate (SENOKOT S) 8.6-50 mg 2 tablet, 2 tablet, oral, BID, Jeet Ramírez MD, 2 tablet at 03/25/172056 warfarin (COUMADIN) tablet 10 mg, 10 mg, oral, QPM, Terry Ochoa MD, 10 mg at 03/25/17 205 8 OBJECTIVE: Last Vitals: BP 114/61 | Pulse 108 | Temp 36.8 C (98.2 F) | RR 18 | Ht 1.75 m (5' 8.9") | Wt 106.4 kg (234 lb 9.1 oz) | SpO2 97% | BMI 34.74 kg/(m^2) 24 Hour Vital Min/Max: Systolic (24hrs), Av , Min:83 , Max:130 Diastolic (24hrs), Av, Min:53, Max:86 Pulse Min: 97 Max: 108 Temp Min: 36.6 C (97.9 F) Max: 37.2 C (99 F) Resp Min: 5 Max: 19 SpO2 Min: 89 % Max: 97 % Intake/Output Summary (Last 24 hours) at 03/26/17 0717 Last data filed at 03/26/17 0600 Gross per 24 hour Intake 1760.7 ml Output 4060 ml Net -2299.3 ml PHYSICAL EXAMINATION: General: Elderly man, laying in bed, no distress, alert and oriented, cooperative HEENT: MMM, No scleral icterus/conjunctival injection Neck: Supple, JVP elevated to the mandible at 20 degrees Cardiovascular: tachycardic but regular, no murmurs, gallops, or rubs appreciated. + abdomi nal-jugular reflux. 2+ peripheral edema to the knees. Lungs: Unlabored breathing. Clear to auscultation bilaterally without crackles, rhonchi, or wheezes. Abd: Soft, nontender, and nondistended. Left groin: ecchymosis with sutures in place, small open area with minor erythema but no pu rulence, masses, fluctuance Skin: Warm and well-perfused. Chronic venous stasis changes. LABS/IMAGING/EKG: I have reviewed new data available in the electronic medical record. Not able findings Include: Recent Labs 03/23/17 0200 03/24/17 0012 03/25/17 00503/25/17200703/25/17 2339 03/26/17 0337 GLU 127* < > 164* < > 128* < > 125* 130* 114* BUN 48* -- 47* -- 47* -- -- -- 45* CR 1.56* -- 1.52* -- 1.48* -- -- -- 1.31* ALB 2.1* -- 2.1* -- 2.2* -- -- -- 2.2* CA 7.7* -- 8.1* -- 8.3* -- -- -- 8.5* PO4 4.9* -- 4.6 -- 4.8* -- -- -- -- NA 140 -- 133* -- 134* -- -- -- 135* CL 101 -- 97 -- 100 -- -- -- 104 BICARB 30 -- 27 -- 27 -- -- -- 22 < > = values in this interval not displayed. CBC with diff last 72 hours (or 3 results) Recent Labs 03/24/17 0012 03/25/175103/26/177 WBC 14.56* 17.00* 15.15* HB 8.1* 7.8* 8.3* HCT 24.6* 24.0* 25.2* PLT 255 299 349 NEUTROPERC 82.5* 80.9* 78.1* LYMPHPERC 8.3* 9.4* 12.6* MONOPERC 5.3 5.7 5.6 BASOPERC 0.1 0.2 0.2 EOSPERC 0.7* 0.5* 0.7* Lab Results Component Value Date INRPT 1.41 (H) 03/26/2017 UA with small blood, mod LE, 8 WBC, few sqams on 03/25 Sputum cx 03/18 no growth Blood cx 03/18 final no growth CBGs 114-148 Patients Hospital Problem List: Active Hospital Problems 1) *Cardiogenic shock (HCC) 2) Physical deconditioning 3) Tobacco use 4) Hypertension 5) Hypercholesterolemia 6) Acute kidney injury (HCC) 7) Acute respiratory failure with hypoxia and hypercapnia (HCC) 8) STEMI (ST elevation myocardial infarction) (HCC) 9) Coronary artery disease 10) Ventricular fibrillation (HCC) 11) At risk for electrolyte imbalance 12) Postoperative anemia due to acute blood loss 13) Opacity of lung on imaging study 14) Stress hyperglycemia 15) Abdominal aortic aneurysm (AAA) without rupture (HCC) 16) Ischemic cardiomyopathy 17) On tube feeding diet 18) 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) 19) Acute delirium 20) Primary insomnia 21) Generalized pain ASSESSMENT/PLAN: 61M with PMH notable for tobacco smoking 18PYH, HL, HD, pre-diabetes and chronic pain admit macho 03/15 in transfer from OSH following STEMI, complicated by cardiogenic shock necessitating IABP and ECMO, now with acute systolic heart failure , transferred out to [facility] 03/25 with on going optimization of medical therapy and diuresis, also followed by Advanced Heart Failure service. #Acute cardiogenic shock in the setting of STEMI Pt transferred in acute cardiogenic shock requiring IABP (removed 03/16/17) and pressors (CHANG bourgeois). ECMO started on arrival. He was rapidly weaned from pressors and IABP was remov ed HD1. Decannulated 03/19. Diuresed with furosemide gtt and started on po AL reduction (upti trating) and low-dose beta blockade. Most recent TTE with EF 20-25%. Currently doing well, nissa bajwa remains volume up. - Continue diuresis: transition from lasix gtt to 60mg IV BID; goal net neg 500cc - 1L - Continue KCl 20mEq bid with close monitoring of renal function and electrolytes - Continue metoprolol: switch from tartrate 6.25 mg BID to succinate 25mg daily today - Continue captopril 25mg q8h - Continue eplerenone 50mg daily - Strict I/Os, Daily weights, 2LFR, 2g NA - Appreciate advanced heart failure involvement and recommendations #CAD, s/p STEMI #ANY x 2 (LM/LAD, LCx) Pt presented to OSH with sx concerning for ACS and was found to have anterior STEMI with 99 % proximal LAD lesion and 100% distal LM occlusion, with subsequent acute dissection/thrombo sis of L main. S/p revascularization via PCI of LM/LAD and LCX, prior to transfer. Currently on clopidogrel (ASA held after warfarin/heparin started, as below), BB, ACEi, statin. - Continue clopidogrel 75mg po daily - Continue atorvastatin 40mg po daily - Continue beta clotilde and ACEi as above #Left groin pain #Chronic pain Pt currently reports L groin pain at prior sheath site, but no sign of infection or hematom a. Patient as well has generalized chronic pain. High risk for delirium, as below. -Cards to ask CT surg to remove stitch today; appreciate assistance with this -wound care consult today -consider nystatin? Reassess in AM -Increase oxycodone from 5-10mg to 10-15mg po q3h prn for now, attempt to wean as tolerated -Cont APAP RTC given lack of other good alternatives to narcotics #Anemia, normocytic Pt noted to have anemia on H&P. Hct dropped abruptly from 44 to 32 during first day at [facility] , with addition decline to 24 the following day. Has received 3U PRBC so far this admission. Currently stable with Hct at 24 past 3d. Suspect acute initial drop during first 2-3 days o f admission was related to acute blood loss anemia in setting of IABP, ECMO, multiple lines, very frequent lab monitoring. No overt clinical e/o bleeding since admission aside from mil d bleeding from ETT (now removed). ?possible that some of the GGOs on CXR are related to int rapulmonary hemorrhage, though reassuring that these are gradually improving on serial radio graphs. Given current stability, will hold on further evaluation. -Trend CBC -Lab draws in pedi tubes, minimize unnecessary sticks #AYLIN: Cr elevated on admit to peak of 1.8 in the setting of cardiogenic shock, with subsequent im provement and stabilization ~1.4-1.5 with hemodynamic support and medical management, now 1. 3 today. Also noted to have elevated CK ~10K on admission, with subsequent downward trend. G ood UOP. Unclear baseline, will request recent chemistries from PCP. - Trend BMP - Outside medical records request for recent SCr #Leukocytosis, progressive Improving today from 17 to 15. Concern for aspiration pneumonia early in admission given pe rsistent RUL infiltrate on imaging. S/p 7d course of Zosyn 03/22/17. Intermittently on vancom ycin during that time as well, dc'd 03/20/17. BlCx and SpCx 03/18 negative. UA done from reardon 03/25 with some LE, but no bacteria, suspect this is from reardon rather than true UTI or CAUT I, and now reardon has been removed 03/26. No recent fevers though is getting standing APAP q6h , so possibly we are masking some. No current diarrhea, though is at risk of C diff. - Trend daily CBC - monitor for any urinary sx; hold off on abx for now - BlCx and repeat CXR for any clinical decompensation or fever - Monitor for s/sx C diff given recent abx course; cont probiotics #Thrombocytopenia Plts on the high side at admission, declined to marilee of 68 03/17 concerning for destructive +/- consumptive process in the setting of acute illness and ECMO/IABP. Now wnl. - CTM #JAVON thrombus Noted on MARKY in the OR during ECMO decannulation. Currently on heparin gtt bridge to warfar in, INR remains subtherapeutic. - anticoagulation with warfarin, pharmacist assistance appreciated - Bridge with heparin till therapeutic -daily INR #Pre-diabetes On Metformin as an outpatient. Last A1c unknown. - Check A1c, although unlikely to be accurate given recent RBC transfusions - Cont CBG QAC/HS with SSI - Cont NPH 2U q12h - Cont lispro 1U tid AC #AAA, infrarenal Noted on abdominal arterial/venous duplex 03/17. 3.9cm. Proximal Ao and supra-renal Ao obscu red by overlying bowel gas. - Encourage follow up with PCP following discharge #GERD: Stable. - Continue famotidine 20mg bid #Deconditioning Pt is severely deconditioned in the setting of prolonged CVICU stay and profound illness. P T assistance appreciated. - Continue PT #Risk for malnutrition Nutrition assistance appreciated. -Calorie count ongoing -Check pre-albumin in am #Delirium Waxing/waning mental status noted in CVICU. Currently A/Ox3, appears to be at/near baseline . At high risk for recurrent delirium. -Melatonin 3mg qhs -Cont seroquel 12.5mg qhs -Cont bowel regimen for constipation prevention -Dc Reardon today -Regulate sleep/wake cycle, minimize distractions #Acute hypoxemic respiratory failure: In setting of STEMI and cardiogenic shock. ETT placed 03/15, extubated uneventfully 03/22. No current O2 requirement. -CTM CODE status: FULL Thromboembolic prophylaxis: Heparin gtt bridge to therapeutic warfarin Dispo plans: to SNF when medically stable/optimized Barriers for DC: volume overload, optimizing medical management Lines/drains/tubes: midline R arm, midline left arm Ariana Bose DO Mine Engineering Superintendentmetal dealer Clinical Hospitalist and Medicine Teaching Service Division of [facility] Medicine [facility] Pager [phone] [facility] DEPARTMENT: Hosp- [phone] Place of Service: - Date of Service: 03/26/2017 CSN: [id number] Modifiers:GC Resident Involved: Yes Suggested CPT: 44889 Subsequent Visit Detailed/High complexity 35 min Wan Cano MD - 03/25/2017 3:07 PM PDT . Cardiovascular Intensive Care Unit Attending Progress Note CVICU D2 Assigned #[id number] ICU Admission Reason Most Recent Value ICU Admission reason Cardiogenic Shock filed at 03/15/2017 1531 Documentation Date 03/24/17 1546 03/24/17 1545 Day of Procedure 03/19/17 03/15/17 Cardiac Cardiac Other ecmo takedown in OR L fem art and vein cannulation for ecmo Hospital admission dx: left anterior descending artery occlusion, needs cabg 10 Days in ICU 10 Days in Hospital Abbreviated HPI / Daily Assessment Ron Mckeon is a 61 year old man with acute cardiogenic shock in the setting of acu te STEMI from thrombosed left main coronary artery. Initially had lesion in proximal LAD and distal LM, but then acutely thrombosed his left main coronary artery. ANY X2 placed in outs surinder blood bank laboratory technician along with IABP. Arrived in cardiogenic shock, urgently placed on ECMO. IABP an d ECMO since removed, pt weaned from inotropes, extubated, being diuresed, continuing on VTE -protocol heparin gtt as warfarin is begun, awaiting therapeutic INR Medical Decision Making 61 yo man s/p PCI for STEMI c/b refractory cardiogenic shock necessitating [facility] ECMO s/p dec annulation on 03/19. Last night: Delirium Plan for today: * Delirium-mitigation strategies * Afterload optimization: Captopril * Forced diuresis with proactive electrolyte replacement * Heparin infusions for JAVON thrombus * Clopidogrel / Atorvastatin / Metoprolol / Eplerenone * Heart Healthy diet * Glycemic control * VTE / stress ulcer prophylaxis * Incentive spirometry * Mobilize / PT * Nightly warfarin with INR surveillance * Transfer Hospital Problems Priority POA Nervous Acute delirium Unknown Cardiovascular Hypertension Yes * (Principal)Cardiogenic shock (HCC) Yes STEMI (ST elevation myocardial infarction) (HCC) Yes Coronary artery disease Yes Ventricular fibrillation (HCC) No Abdominal aortic aneurysm (AAA) without rupture (HCC) Unknown Ischemic cardiomyopathy Unknown 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) Unknown Respiratory/Chest Acute respiratory failure with hypoxia and hypercapnia (HCC) Unknown Genitourinary Acute kidney injury (HCC) Unknown Hematologic Postoperative anemia due to acute blood loss Unknown Endocrine/Metabolic Hypercholesterolemia Yes Stress hyperglycemia Unknown Other Physical deconditioning Yes Tobacco use Yes At risk for electrolyte imbalance Unknown Opacity of lung on imaging study Unknown On tube feeding diet Unknown Primary insomnia Unknown Generalized pain Unknown Service Cardiology [[id number]] Admitting provider and ICU treatment team members Provider Role Specialty Pager Mellisa Haji MD Admitting Provider Cardiology [id number] Zelalem Del Toro MD ICU PM Attending Anesthesiology [id number] Code Status Code Status Full Code The Advanced Care Note for this patient can be found under the notes tab in chart review. Quality section Reardon necessity reviewed: Hourly/Accurate measurement of urinary output for clinical manage ment of critically ill patients Wan Deleon MD, JOHN, ERVIN Cardiovascular Intensive Care Unit [address] [place], [place] [address] I have spent a total of 38 minutes in the direct care and management of this patient indepe ndent of any time spent teaching or performing any separately billable procedures. I reviewe d the documented findings, all data and the recent imaging available. I saw and evaluated t he patient at the bedside together with Dr. Nj Alvarado.Please see their note for details. I agree with the assessment and plan as described in the resident's note with the following e xceptions/additions as noted. Date of Service: 03/25/2017 [facility] DEPARTMENT: ANE ICU CARDIAC Place of Service:- Inpatient CSN: [id number] Suggested Modifier: GC - Resident Involved Suggested CPT: TO PHOTOENGRAVER APPRENTICE Jose Ramon Khan MD - 03/24/2017 10:54 AM PDT . Cardiovascular Intensive Care Unit Team Progress Note CVICU D2 Assigned #[id number] ICU Admission Reason Most Recent Value ICU Admission reason Cardiogenic Shock filed at 03/15/2017 1531 Admission dx: left anterior descending artery occlusion, needs cabg 9 Days in ICU 9 Days in Hospital Abbreviated HPI / Daily Assessment Ron Mckeon is a 61 year old man with acute cardiogenic shock in the setting of acu te STEMI from thrombosed left main coronary artery. Initially had lesion in proximal LAD and distal LM, but then acutely thrombosed his left main coronary artery. NAY X2 placed in outs surinder blood bank laboratory technician along with IABP. Arrived in cardiogenic shock, urgently placed on ECMO. IABP an d ECMO since removed, pt weaned from inotropes, extubated, being diuresed, continuing on VTE -protocol heparin gtt as warfarin is begun, awaiting therapeutic INR 24 Hour events 03/23-: -None acute -met diuresis goal -TFs turned off this morning to encourage PO -hypertensive overnight in setting of pain Code Status Code Status Full Code Active Diagnosis with Assessment & Plan Priority Class POA Nervous Acute delirium Unknown Current Assessment & Plan With sleep-wake disturbance. -Frequent reorientation, maintenance of sleep-wake cycles -seroquel qHS Cardiovascular Hypertension Yes * (Principal)Cardiogenic shock (HCC) Yes Current Assessment & Plan S/p IABP 03/15 - 03/16 S/p VA ECMO 03/15-03/19 IABP and R fem venous sheath dc'd 03/16 PM Epi at 0.02 ECHO 03/17: akinetic LAD, apical lateral segments hypokinetic RCA, mid-anterolateral segments Overall LV function has been improving -a-line dc'd 03/23 STEMI (ST elevation myocardial infarction) (HCC) Yes Overview Xience Alpine 3.0 mm X 23 mm, Xience Alpine 2.5 mm X 18 mm Current Assessment & Plan Initially had lesion in proximal LAD and distal LM, but then acutely thrombosed/dissected his left main coronary artery. S/p ANY X2. Plavix loaded at the outside hospital and transp orted on ticagrelor and bivalirudin. Troponin peaked at 576 on 03/15. - DAPT: ASA 81 mg daily + Plavix 75 mg daily -ASA dc'd 03/23 (WOEST trial, Lancet 2013) to reduce bleeding risk -continue plavix, warfarin Coronary artery disease Yes Ventricular fibrillation (HCC) No Current Assessment & Plan Patient went into VFib during blood bank laboratory technician procedure at [facility]. Was shocked 17 times Targeted temperature management resumed overnight Now that more than 72 hrs post arrest, will not pursue TTM Has ectopy when K low but no runs of VT or VF since admission Abdominal aortic aneurysm (AAA) without rupture (HCC) Unknown Current Assessment & Plan Disclosed by ultrasound 03/17. 3.9cm at widest. Infrarenal. Ischemic cardiomyopathy Unknown Current Assessment & Plan Eplerenone 03/19 --> 50 mg 03/21 Captopril 03/19 --> dc'ed overnight 03/22 due to hypotension --> restarted 03/22 AM --> increa sed to 18.75 03/24 CI 1.9 by Alessandro equation 03/20. 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) Unknown Current Assessment & Plan Suspected by anesthesia in OR 03/20 -Heparin infusion 03/19 --> -warfarin 03/20--> -will increase warfarin dose tonight Respiratory/Chest Acute respiratory failure with hypoxia and hypercapnia (HCC) Unknown Current Assessment & Plan Had waxing and waning vent requirements during first week of stay Extubated 03/22, started on NC O2 Lasix infusion begun 03/22 for daily goal -1 to -2L Afterload reduction for SBC < 130 to prevent flash pulmonary edema Genitourinary Acute kidney injury (HCC) Unknown Current Assessment & Plan Cr stable at 1.3 --> 1.5 Excellent UOP On lasix gtt, now at 10mg/hr Holding nephrotoxic agents as able Hematologic Postoperative anemia due to acute blood loss Unknown Current Assessment & Plan Transfused 2u 03/17-03/18 with improved HR from 140s to 120s Heparin gtt on VTE protocol Warfarin begun 03/19 03/22 changed all blood draws to pedi tubes Endocrine/Metabolic Hypercholesterolemia Yes Stress hyperglycemia Unknown Current Assessment & Plan Endotool from admission -transitioned to subcu 03/24 Other Physical deconditioning Yes Current Assessment & Plan PT, IS, metanebs -emphasizing long rehab process ahead Tobacco use Yes Current Assessment & Plan Patient has stated he is "done" smoking and has declined nicotine replacement. At risk for electrolyte imbalance Unknown Current Assessment & Plan Renal function set and magnesium daily ICU lytes protocol begun 03/16 PM as EGFR came below 60 20 meq KCl (PO) qAM scheduled started 03/23 PM dose of 20 KCl started 03/24 K > 4.5, Mag > 2.5 Opacity of lung on imaging study Unknown Current Assessment & Plan Greatest in RUL. Asp pna vs pulmonary edema. 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 -secretions improving, cough strong -s/p 7 days vanc-zosyn 03/15-03/22 -not following with imaging -continue daily CBC On tube feeding diet Unknown Current Assessment & Plan RD note 03/20: "Rec changing TF formula to Replete without fiber (high protein formula in EPIC) @ 55 ml/hr x 22 hrs/day (hold one hour before and after warfarin) + 2 packets prosource BID to provide 1450 kcal (1808 kcal with propofol), 137g pro, and ~1000 ml useable fluid/day -When propofol is weaning down, increase Replete to 70 ml/hr x 22 hrs/day (hold for warfari n) + one packet prosource TID to provide 1720 kcal, 144g pro, and ~1290 ml useable fluid per day" -continuous feeds stopped 03/24 AM -will start night time feeds if PO not adequate Primary insomnia Unknown Current Assessment & Plan More evident since extubation and sedation wean. -Melatonin qhs -seroquel qhs Generalized pain Unknown Current Assessment & Plan Variously reports in back, calves, inguinal regions bilaterally. Takes hydrocodone at charu e, 10-325 q6. -oxy 5-15 q3prn -apap 650 q6 (got 1000 q6 for about 7 days) -hm for breakthrough, has not required in some time -lido patches added 03/24 Physical Exam vitals and nursing note reviewed. Constitutional: He appears well-developed and well-nourished HENT: Throat: oropharynx is clear and moist Tongue lac has resolved Neck: neck supple R IJ site healing well, no hematoma Cardiovascular: regular rhythm Tachy, regular, normal S1, S2, no MRG. 2+ DPs and radials bi laterally. Fem sites with minimal bruising, no hematomae. 2+ pedal edema Pulmonary: effort normal. No respiratory distress. Rales at the bases bilaterally. Good air movement. No wheezes or rhonchi Abdominal: Abdomen is soft. There is no tenderness He exhibits no distention. Genitourinary: +reardon Neurological: He is alert and oriented to person, place, and time. Skin: Skin is warm and dry. Psychiatric: He has a normal mood and affect. Service Cardiology [[id number]] Admitting provider and ICU treatment team members Provider Role Specialty Pager Mellisa Haji MD Admitting Provider Cardiology [id number] Zelalem Del Toro MD ICU PM Attending Anesthesiology [id number] The Advanced Care Note for this patient can be found under the notes tab in chart review. Quality section Reardon necessity reviewed: Hourly/Accurate measurement of urinary output for clinical manage ment of critically ill patients FAST HUG Feeding: regular + TFs Analgesia: mma Sedation: none Thromboprophylaxis: Heparin infusion Head of Bed: Head of Bed Ad lolita Ulcer Prophylaxis: Famotidine Glycemic Control: insulin sliding Created by Jose Ramon Alvarado MD Author:Jose Ramon Alvarado MD [address] [address] [place] [id number] signed by Jose Ramon Alvarado MD at 03/24/2017 11:00 AM Wan Cano MD - 03/24/2017 9:47 AM PDTFormatting of this note might be diff erent from the original. Cardiovascular Intensive Care Unit Attending Progress Note CVICU D2 Assigned #[id number] ICU Admission Reason Most Recent Value ICU Admission reason Cardiogenic Shock filed at 03/15/2017 1531 Hospital admission dx: left anterior descending artery occlusion, needs cabg 9 Days in ICU 9 Days in Hospital Abbreviated HPI / Daily Assessment Ron Mckeon is a 61 year old man with acute cardiogenic shock in the setting of acu te STEMI from thrombosed left main coronary artery. Initially had lesion in proximal LAD and distal LM, but then acutely thrombosed his left main coronary artery. ANY X2 placed in outs surinder blood bank laboratory technician along with IABP. Arrived in cardiogenic shock, urgently placed on ECMO. IABP an d ECMO since removed, pt weaned from inotropes, extubated, being diuresed, continuing on VTE -protocol heparin gtt as warfarin is begun, awaiting therapeutic INR Medical Decision Making 61 yo man s/p PCI for STEMI c/b refractory cardiogenic shock necessitating [facility] ECMO s/p dec annulation on 03/19. Last night: Tolerated metoprolol trial Plan for today: * Afterload optimization: Captopril * Forced diuresis with proactive electrolyte replacement * Heparin infusions for JAVON thrombus * Clopidogrel / Atorvastatin / Metoprolol * Heart Healthy diet * Glycemic control * VTE / stress ulcer prophylaxis * Incentive spirometry * Mobilize / PT * Nightly warfarin with INR surveillance * Transfer once nursing needs decrease Hospital Problems Priority POA Nervous Acute delirium Unknown Head/Neck Tongue laceration Yes Cardiovascular Hypertension Yes * (Principal)Cardiogenic shock (HCC) Yes STEMI (ST elevation myocardial infarction) (HCC) Yes Coronary artery disease Yes Ventricular fibrillation (HCC) No Abdominal aortic aneurysm (AAA) without rupture (HCC) Unknown Ischemic cardiomyopathy Unknown 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) Unknown Respiratory/Chest Acute respiratory failure with hypoxia and hypercapnia (HCC) Unknown Genitourinary Acute kidney injury (HCC) Unknown Hematologic Postoperative anemia due to acute blood loss Unknown Endocrine/Metabolic Hypercholesterolemia Yes Stress hyperglycemia Unknown Other Physical deconditioning Yes Tobacco use Yes At risk for electrolyte imbalance Unknown Opacity of lung on imaging study Unknown On tube feeding diet Unknown Primary insomnia Unknown Service Cardiology [1024] Admitting provider and ICU treatment team members Provider Role Specialty Pager Mellisa Haji MD Admitting Provider Cardiology [id number] Zelalem Del Toro MD ICU PM Attending Anesthesiology [id number] Code Status Code Status Full Code The Advanced Care Note for this patient can be found under the notes tab in chart review. Quality section Reardon necessity reviewed: Hourly/Accurate measurement of urinary output for clinical manage ment of critically ill patients Wan Deleon MD, JOHN, ERVIN Cardiovascular Intensive Care Unit [address] [address] I have spent a total of 42 minutes in the direct care and management of this patient indepe ndent of any time spent teaching or performing any separately billable procedures. I reviewe d the documented findings, all data and the recent imaging available. I saw and evaluated t he patient at the bedside together with Dr. Nj Alvarado.Please see their note for details. I agree with the assessment and plan as described in the resident's note with the following e xceptions/additions as noted. Date of Service: 03/24/2017 [facility] DEPARTMENT: [facility] ICU CARDIAC Place of Service:- Inpatient CSN: [id number] Suggested Modifier: GC - Resident Involved Suggested CPT: TO PHOTOENGRAVER APPRENTICE Author:Wan Deleon Md, [address] [id number] signed by aWn Deleon MD at 03/24/2017 9:49 AM Tamia De La Paz PA-C - 03/23/2017 11:54 PM PDTFormatting of this note might be diff erent from the original. Cardiovascular Intensive Care Unit Clinical Update Note Team: D2 Team Pager: [phone] Attending: Katey Pt Name: Ron Mckeon ID: Abbreviated HPI Abbreviated HPI / Daily Assessment Ron Mckeon is a 61 year old man with acute cardiogenic shock in the setting of acu te STEMI from thrombosed left main coronary artery. Initially had lesion in proximal LAD and distal LM, but then acutely thrombosed his left main coronary artery. ANY X2 placed in outs surinder blood bank laboratory technician along with IABP. Arrived in cardiogenic shock, urgently placed on ECMO. IABP an d ECMO since removed, pt weaned from inotropes, extubated, being diuresed, continuing on VTE -protocol heparin gtt as warfarin is begun, awaiting therapeutic INR Update: increased captopril dose to 12.5 mg q 8 hrs Continued with lasix gtt adjustable does 5-10 mg/hr initiated beta clotilde speech cleared for diet S: Patient states he is grateful for his medical care and is hoping to eat more his next me al O: BP 112/75 | Pulse 103 | Temp 36.8 C (98.2 F) | RR 13 | Ht 1.75 m (5' 8.9") | Wt 110.9 k g (244 lb 7.8 oz) | SpO2 95% | BMI 36.21 kg/(m^2) Physical Exam vitals and nursing note reviewed. Constitutional: He appears well-developed HENT: Head:normocephalic Eyes: pupils are equal, round, and reactive to light Neck: normal range of motion neck supple Cardiovascular: regular rhythm and normal heart sounds tachycardia Pulmonary: effort normal. Abdominal: Abdomen is soft. Musculoskeletal: normal range of motion. Neurological: He is alert. Skin: Skin is warm. 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) Unknown Respiratory/Chest Acute respiratory failure with hypoxia and hypercapnia (HCC) Unknown Genitourinary Acute kidney injury (HCC) Unknown Hematologic Postoperative anemia due to acute blood loss Unknown Endocrine/Metabolic Hypercholesterolemia Yes Stress hyperglycemia Unknown Other Physical deconditioning Yes Tobacco use Yes At risk for electrolyte imbalance Unknown Opacity of lung on imaging study Unknown On tube feeding diet Unknown Primary insomnia Unknown Continue lasix gtt for goal -500 Continue afterload reduction with captopril Continue metorprolol Continue heparin gtt for LA thrombus I have spent a total of 20 Minutes independently in the direct care and management of th is patient.Time is independent of any time spent teaching or performing any separately billa ble procedures. I reviewed the documented findings, all data and the recent imaging availabl e. EDUIN Alas PA-C Jose Ramon Khan MD - 03/23/2017 11:27 AM PDT . Cardiovascular Intensive Care Unit Team Progress Note CVICU D2 Assigned #[id number] ICU Admission Reason Most Recent Value ICU Admission reason Cardiogenic Shock filed at 03/15/2017 1531 Admission dx: left anterior descending artery occlusion, needs cabg 8 Days in ICU 8 Days in Hospital Abbreviated HPI / Daily Assessment Ron Mckeon is a 61 year old man with acute cardiogenic shock in the setting of acu te STEMI from thrombosed left main coronary artery. Initially had lesion in proximal LAD and distal LM, but then acutely thrombosed his left main coronary artery. ANY X2 placed in outs surinder blood bank laboratory technician along with IABP. Arrived in cardiogenic shock, urgently placed on ECMO. IABP an d ECMO since removed, pt weaned from inotropes, extubated, being diuresed, continuing on VTE -protocol heparin gtt as warfarin is begun, awaiting therapeutic INR 24 Hour events 03/22-: -extubated -got 1U pRBC for Hgb 7.0 --> appropriate response, now 8.2 -lasix gtt at 15 - 8L UOP -Na came down, FWF stopped -delirious Code Status Code Status Full Code Active Diagnosis with Assessment & Plan Priority Class POA Nervous Acute delirium Unknown Current Assessment & Plan With sleep-wake disturbance. -Frequent reorientation, maintenance of sleep-wake cycles -seroquel qHS Head/Neck Tongue laceration Yes Current Assessment & Plan Right posterior tongue was lacerated during the difficult intubation Packed with combat gauze on 03/15/1703/19-03/20: ETT with minimal bloody secretions, old appearing Cardiovascular Hypertension Yes * (Principal)Cardiogenic shock (HCC) Yes Current Assessment & Plan S/p IABP 03/15 - 03/16 S/p VA ECMO 03/15-03/19 IABP and R fem venous sheath dc'd 03/16 PM Epi at 0.02 ECHO 03/17: akinetic LAD, apical lateral segments hypokinetic RCA, mid-anterolateral segments Overall LV function has been improving -a-line dc'd 03/23 STEMI (ST elevation myocardial infarction) ([facility]) Yes Overview Xience Alpine 3.0 mm X 23 mm, Xience Alpine 2.5 mm X 18 mm Current Assessment & Plan Initially had lesion in proximal LAD and distal LM, but then acutely thrombosed/dissected his left main coronary artery. S/p ANY X2. Plavix loaded at the outside hospital and transp orted on ticagrelor and bivalirudin. Troponin peaked at 576 on 03/15. - DAPT: ASA 81 mg daily + Plavix 75 mg daily -will dc ASA today (WOEST trial, Lancet 2013) to reduce bleeding risk -continue plavix, warfarin Coronary artery disease Yes Ventricular fibrillation (HCC) No Current Assessment & Plan Patient went into VFib during blood bank laboratory technician procedure at [facility]. Was shocked 17 times Targeted temperature management resumed overnight Now that more than 72 hrs post arrest, will not pursue TTM Has ectopy when K low but no runs of VT or VF since admission Abdominal aortic aneurysm (AAA) without rupture (HCC) Unknown Current Assessment & Plan Disclosed by ultrasound 03/17. 3.9cm at widest. Infrarenal. Ischemic cardiomyopathy Unknown Current Assessment & Plan Eplerenone 03/19 --> 50 mg 03/21 Captopril 03/19 --> dc'ed overnight 03/22 due to hypotension --> restarted 03/22 AM CI 1.9 by Alessandro equation 03/20. 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) Unknown Current Assessment & Plan Suspected by anesthesia in OR 03/20 -Heparin infusion 03/19 --> -warfarin 03/20--> Respiratory/Chest Acute respiratory failure with hypoxia and hypercapnia (HCC) Unknown Current Assessment & Plan Had waxing and waning vent requirements during first week of stay Extubated 03/22, started on NC O2 Lasix infusion begun 03/22 for daily goal -1 to -2L Afterload reduction for SBC < 130 to prevent flash pulmonary edema Genitourinary Acute kidney injury (HCC) Unknown Current Assessment & Plan Cr stable at 1.3 --> 1.5 Excellent UOP On lasix gtt 15mg/hr Holding nephrotoxic agents as able Hematologic Postoperative anemia due to acute blood loss Unknown Current Assessment & Plan Transfused 2u 03/17-03/18 with improved HR from 140s to 120s Heparin gtt on VTE protocol Warfarin begun 03/19 03/22 changed all blood draws to pedi tubes Endocrine/Metabolic Hypercholesterolemia Yes Stress hyperglycemia Unknown Current Assessment & Plan Endotool -will transition to subcu when PO improved Other Physical deconditioning Yes Current Assessment & Plan PT -emphasizing long rehab process ahead Tobacco use Yes Current Assessment & Plan Patient has stated he is "done" smoking and has declined nicotine replacement. At risk for electrolyte imbalance Unknown Current Assessment & Plan Renal function set and magnesium daily ICU lytes protocol begun 03/16 PM as EGFR came below 60 20 meq KCl (PO) qAM scheduled started 03/23 K > 4.5, Mag > 2.5 Opacity of lung on imaging study Unknown Current Assessment & Plan Greatest in RUL. Asp pna vs pulmonary edema. 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 -fevering nightly, cultures negative, WBC stable -secretions improving, cough strong -s/p 7 days vanc-zosyn 03/15-03/22 On tube feeding diet Unknown Current Assessment & Plan RD note 03/20: Rec changing TF formula to Replete without fiber (high protein formula in EPIC) @ 55 ml/hr x 22 hrs/day (hold one hour before and after warfarin) + 2 packets prosource BID to provide 1450 kcal (1808 kcal with propofol), 137g pro, and ~1000 ml useable fluid/day -When propofol is weaning down, increase Replete to 70 ml/hr x 22 hrs/day (hold for warfari n) + one packet prosource TID to provide 1720 kcal, 144g pro, and ~1290 ml useable fluid per day Primary insomnia Unknown Current Assessment & Plan More evident since extubation and sedation wean. -Melatonin qhs -seroquel qhs Physical Exam vitals and nursing note reviewed. Constitutional: He appears well-developed and well-nourished not diaphoretic no distress HENT: Throat: oropharynx is clear and moist Neck: neck supple Cardiovascular: normal rate no murmur heard.NSR, S1 and S2 audible. No murmurs. 2+ pretibia l edema. Fem access sites with mild bruising bilaterally though without fluctuance to sugges t hematoma. Distal pulses with biphasic signals at radials and DP bilaterally Pulmonary: effort normal. No respiratory distress. Lung sounds improved bilaterally Abdominal: Abdomen is soft. He exhibits no distention. Genitourinary: +reardon Neurological: He is alert and oriented to person, place, and time.Moves all four on command . Face symmetric. Speech clear. No focal deficits appreciated. Skin: Skin is warm and dry. Psychiatric: He has a normal mood and affect. Service Cardiology [1024] Admitting provider and ICU treatment team members Provider Role Specialty Pager Mellisa Haji MD Admitting Provider Cardiology [id number] The Advanced Care Note for this patient can be found under the notes tab in chart review. Quality section A-Line necessity reviewed: Plan to DC today Reardon necessity reviewed: Hourly/Accurate measurement of urinary output for clinical manage ment of critically ill patients FAST HUG Feeding: TFs and starting to take PO Analgesia: multimodal Sedation: none Thromboprophylaxis: Heparin infusion + warfarin induction Head of Bed: Head of Bed Ad lolita Ulcer Prophylaxis: not clinically indicated Glycemic Control: insulin infusion (will transition if possible) Created by Jose Ramon Alvarado MD Author:Jose Ramon Alvarado MD [address] [id number] signed by Jose Ramon Alvarado MD at 03/23/2017 11:41 AM PDTWan Deleon MD - 03/23/2017 9:51 AM PDTFormatting of this note might be diff erent from the original. Cardiovascular Intensive Care Unit Attending Progress Note CVICU D2 Assigned #[id number] ICU Admission Reason Most Recent Value ICU Admission reason Cardiogenic Shock filed at 03/15/2017 1531 Hospital admission dx: left anterior descending artery occlusion, needs cabg 8 Days in ICU 8 Days in Hospital Abbreviated HPI / Daily Assessment Ron Mckeon is a 61 year old man with acute cardiogenic shock in the setting of acu te STEMI from thrombosed left main coronary artery. Initially had lesion in proximal LAD and distal LM, but then acutely thrombosed his left main coronary artery. ANY X2 placed in outs surinder blood bank laboratory technician along with IABP. Arrived in cardiogenic shock, urgently placed on ECMO. IABP an d ECMO since removed, pt weaned from inotropes, extubated, being diuresed Medical Decision Making 61 yo man s/p PCI for STEMI c/b refractory cardiogenic shock necessitating VA ECMO s/p dec annulation on 03/19. Last night: Diuresing well Plan for today: * Metoprolol titration * Afterload optimization: Captopril * Forced diuresis with proactive electrolyte replacement * Heparin infusions for JAVON thrombus * DAPT / Atorvastatin * Glycemic control * VTE / stress ulcer prophylaxis * Incentive spirometry * Mobilize / PT * Nightly warfarin with INR surveillance Hospital Problems Priority POA Nervous Acute delirium Unknown Head/Neck Tongue laceration Yes Cardiovascular Hypertension Yes * (Principal)Cardiogenic shock (HCC) Yes STEMI (ST elevation myocardial infarction) (HCC) Yes Coronary artery disease Yes Ventricular fibrillation (HCC) No Abdominal aortic aneurysm (AAA) without rupture (HCC) Unknown Ischemic cardiomyopathy Unknown 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) Unknown Respiratory/Chest Acute respiratory failure with hypoxia and hypercapnia (HCC) Unknown Tachypnea Unknown Genitourinary Acute kidney injury (HCC) Unknown Hematologic Postoperative anemia due to acute blood loss Unknown Endocrine/Metabolic Hypercholesterolemia Yes Stress hyperglycemia Unknown Other Physical deconditioning Yes Tobacco use Yes At risk for electrolyte imbalance Unknown Opacity of lung on imaging study Unknown On tube feeding diet Unknown Primary insomnia Unknown Service Cardiology [1024] Admitting provider and ICU treatment team members Provider Role Specialty Pager Mellisa Haji MD Admitting Provider Cardiology [id number] Code Status Code Status Full Code The Advanced Care Note for this patient can be found under the notes tab in chart review. Quality section A-Line necessity reviewed: Plan to DC today Reardon necessity reviewed: Hourly/Accurate measurement of urinary output for clinical manage ment of critically ill patients Currently at risk for: delirium, stroke, RI, arrythmia, tamponade, PE, respiratory failure, ARDS, aspiration, AYLIN / ARF, coagulopathy, DVT, stress ulcers, sepsis, BONIFACIO, electrolyte per turbations, malnutrition, deconditioning and decubiti. Wan Deleon MD, JOHN, ERVIN Cardiovascular Intensive Care Unit [facility] [address] I have spent a total of 44 minutes in the direct care and management of this patient indepe ndent of any time spent teaching or performing any separately billable procedures. I reviewe d the documented findings, all data and the recent imaging available. I saw and evaluated t he patient at the bedside together with Dr. Nj Alvarado.Please see their note for details. I agree with the assessment and plan as described in the resident's note with the following e xceptions/additions as noted. Date of Service: 03/23/2017 [facility] DEPARTMENT: [facility] ICU CARDIAC Place of Service:- Inpatient CSN: [id number] Suggested Modifier: GC - Resident Involved Suggested CPT: TO PHOTOENGRAVER APPRENTICE Tamia De La Paz PA-C - 03/22/2017 7:58 PM PDT . Cardiovascular Intensive Care Unit Clinical Update Note Team: D2 Team Pager: [phone] Attending: Abdulaziz Merrill Name: Ron Mckeon ID: Abbreviated HPI Abbreviated HPI / Daily Assessment Ron Mckeon is a 61 year old man with acute cardiogenic shock in the setting of acu te STEMI from thrombosed left main coronary artery. Initially had lesion in proximal LAD and distal LM, but then acutely thrombosed his left main coronary artery. Now s/p S/p ANY X2. IABP place. Arrived in cardiogenic shock urgently placed on ECMO. Update: Extubated lowered captopril dose to 6.25 mg q 8 hrs Continued with lasix gtt Febrile overnight Received 1 unit of PRBC's S: Patient feeling ok, glad the breathing tube is out O: BP 126/71 | Pulse 113 | Temp 37.7 C (99.9 F) | RR 23 | Ht 1.75 m (5' 8.9") | Wt 110.9 k g (244 lb 7.8 oz) | SpO2 94% | BMI 36.21 kg/(m^2) Physical Exam vitals and nursing note reviewed. Constitutional: He appears well-developed HENT: Head:normocephalic Eyes: pupils are equal, round, and reactive to light Neck: normal range of motion neck supple Cardiovascular: regular rhythm and normal heart sounds tachycardia Pulmonary: effort normal. Abdominal: Abdomen is soft. Musculoskeletal: normal range of motion. Neurological: He is alert. Skin: Skin is warm. 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) Unknown Respiratory/Chest Acute respiratory failure with hypoxia and hypercapnia (HCC) Unknown Tachypnea Unknown Genitourinary Acute kidney injury (HCC) Unknown Hematologic Postoperative anemia due to acute blood loss Unknown Endocrine/Metabolic Hypercholesterolemia Yes Stress hyperglycemia Unknown Hypernatremia Unknown Other Tobacco use Yes On mechanically assisted ventilation (HCC) Unknown At risk for electrolyte imbalance Unknown Opacity of lung on imaging study Unknown Abnormal CK Unknown On tube feeding diet Unknown Continue lasix gtt for goal -1 to 2 liters Continue afterload reduction with captopril Monitor SBP goal to keep < 130, to reduce changes of pulmonary edema I have spent a total of 30 Minutes independently in the direct care and management of th is patient.Time is independent of any time spent teaching or performing any separately billa ble procedures. I reviewed the documented findings, all data and the recent imaging availabl e. EDUIN Alas PA-C [place], Anurag Soni MD - 03/22/2017 11:06 AM PDT Cardiovascular Intensive Care Unit Attending Progress Note CVICU D2 Assigned #[id number] ICU Admission Reason Most Recent Value ICU Admission reason Cardiogenic Shock filed at 03/15/2017 1531 Hospital admission dx: left anterior descending artery occlusion, needs cabg 7 Days in ICU 7 Days in Hospital Abbreviated HPI / Daily Assessment Ron Mckeon is a 61 year old man with acute cardiogenic shock in the setting of acu te STEMI from thrombosed left main coronary artery. Initially had lesion in proximal LAD and distal LM, but then acutely thrombosed his left main coronary artery. Now s/p S/p ANY X2. IABP place. Arrived in cardiogenic shock urgently placed on ECMO. Medical Decision Making 61 year old male with long tobacco abuse history, presenting with acute RI and STEMI, resu ltant cardiogenic shock refractory to IABP, cannulated for VA ECMO via left femoral vein and left femoral artery with antegrade perfusion catheter. Has also had aspiration event, conin ued on IV abx for management of this. Decannulated from ECMO 03/19/17. Hypotensive overnight while on propofol. Finished antibiotics yesterday Plan: - continue with diuresis with goal of 1-2L net negative - continue captopril 6.25mg q8h - continue eplerenone - Increase oxycodone - Extubate - no beta-blockers until heart is recovered from cardiogenic shock a little more - continue tube feeds and add free water for hypernatremia (holding for extubation currentl y but will restart) Dispo: CVICU Hospital Problems Priority POA Head/Neck Tongue laceration Yes Cardiovascular Hypertension Yes * (Principal)Cardiogenic shock (HCC) Yes STEMI (ST elevation myocardial infarction) (HCC) Yes Coronary artery disease Yes Ventricular fibrillation (HCC) No Abdominal aortic aneurysm (AAA) without rupture (HCC) Unknown Ischemic cardiomyopathy Unknown 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) Unknown Respiratory/Chest Acute respiratory failure with hypoxia and hypercapnia (HCC) Unknown Tachypnea Unknown Genitourinary Acute kidney injury (HCC) Unknown Hematologic Postoperative anemia due to acute blood loss Unknown Endocrine/Metabolic Hypercholesterolemia Yes Stress hyperglycemia Unknown Hypernatremia Unknown Other Tobacco use Yes On mechanically assisted ventilation (HCC) Unknown At risk for electrolyte imbalance Unknown Opacity of lung on imaging study Unknown Abnormal CK Unknown On tube feeding diet Unknown Service Cardiology [1024] Admitting provider and ICU treatment team members Provider Role Specialty Pager Mellisa Haji MD Admitting Provider Cardiology 20928 Code Status Code Status Full Code Quality section A-Line necessity reviewed: [id number] blood pressure monitoring Reardon necessity reviewed: Hourly/Accurate measurement of urinary output for clinical manage ment of critically ill patients I have spent a total of 32 minutes in the direct care and management of this patient indepe ndent of any time spent teaching or performing any separately billable procedures. I reviewe d the documented findings, all data and the recent imaging available. I saw and evaluated t he patient at the bedside together with Dr. Gaytan.Please see their note for details. I agre e with the assessment and plan as described in the resident's note with the following except ions/additions as noted. Date of Service: 03/22/2017 Author:Anurag Ashby MD [address] [id number] signed by Anurag Ashby MD at 03/22/2017 11:07 AM P Macho Sellers MD - 03/22/2017 11:00 AM PDT Cardiovascular Intensive Care Unit Team Progress Note CVICU D2 Assigned #[id number] ICU Admission Reason Most Recent Value ICU Admission reason Cardiogenic Shock filed at 03/15/2017 1531 Admission dx: left anterior descending artery occlusion, needs cabg 7 Days in ICU 7 Days in Hospital Abbreviated HPI / Daily Assessment Ron Mckeon is a 61 year old man with acute cardiogenic shock in the setting of acu te STEMI from thrombosed left main coronary artery. Initially had lesion in proximal LAD and distal LM, but then acutely thrombosed his left main coronary artery. Now s/p S/p ANY X2. IABP place. Arrived in cardiogenic shock urgently placed on ECMO. 24 Hour events 03/20: ECMO taken down in OR Hep gtt begun 6hr 03/21: fevered throughout night Tmax 38.5. Continues tachypneic with 2 desatting episodes requiring increased PEEP and 100% oxygen to maintain sats above 90. 03/22: still fevered overnight, but white counts remained stable. Tolerated oxygen titration and switch from volume AC to pressure support. Propofol d/c'ed. Plan for SBT/extubation today Code Status Code Status Full Code Active Diagnosis with Assessment & Plan Priority Class POA Head/Neck Tongue laceration Yes Current Assessment & Plan Right posterior tongue was lacerated during the difficult intubation Packed with combat gauze on 03/15/1703/19-03/20: ETT with minimal bloody secretions, old appearing Cardiovascular Hypertension Yes * (Principal)Cardiogenic shock (HCC) Yes Current Assessment & Plan S/p IABP 03/15 - 03/16 S/p VA ECMO 03/15-03/19 IABP and R fem venous sheath dc'd 03/16 PM Epi at 0.02 ECHO 03/17: akinetic LAD, apical lateral segments hypokinetic RCA, mid-anterolateral segments Overall LV function has been improving STEMI (ST elevation myocardial infarction) (HCC) Yes Overview Xience Alpine 3.0 mm X 23 mm, Xience Alpine 2.5 mm X 18 mm Current Assessment & Plan Initially had lesion in proximal LAD and distal LM, but then acutely thrombosed/dissected his left main coronary artery. S/p ANY X2. Plavix loaded at the outside hospital and transp orted on ticagrelor and bivalirudin. Troponin peaked at 576 on 03/15. 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 Was shocked 17 times Targeted temperature management resumed overnight Now that more than 72 hrs post arrest, will not pursue TTM Started apap for temp control Abdominal aortic aneurysm (AAA) without rupture (HCC) Unknown Current Assessment & Plan Disclosed by ultrasound 03/17. 3.9cm at widest. Infrarenal. Ischemic cardiomyopathy Unknown Current Assessment & Plan Eplerenone 03/19 --> 50 mg 03/21 Captopril 03/19 --> dc'ed overnight 03/22 due to hypotension --> restarted 03/22 AM CI 1.9 by Alessandro equation 7/14. 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) Unknown Current Assessment & Plan Suspected by anesthesia in OR 03/20 -Heparin infusion 03/19 --> -warfarin 03/20--> Respiratory/Chest Acute respiratory failure with hypoxia and hypercapnia (HCC) Unknown Current Assessment & Plan Left radial paO2 40s overnight, FIo2 titrated down to 40% on vent S/p VA ECMO 03/15-03/19 De-satting episodes overnight 03/21 required increasing PEEP and 100% FIO2 to maintain sats Vent on PS 5/10/45%, RR in high 20s PRN ABGs Sedation package propofol gtt and prn po oxy/iv HM CXR 03/21 with increased b/l infiltrates c/w pulmonary edema Tepid response to 20 of lasix 03/21 AM, 40 mg more given Lasix infusion for daily goal -1 to -2L Tachypnea Unknown Current Assessment & Plan Two tachypneic episodes overnight requiring oxygen requirement. Suspect pulmonary edema w ith likely pain vs agitation vs fever component. -monitor closely -CXR shows worsening groundglass opacity in 24hr interval Genitourinary Acute kidney injury (HCC) Unknown Current Assessment & Plan Cr stable at 1.29 UOP with minimal response to 20 mg Lasix. Additional 40 given 03/21 PM Holding nephrotoxic agents as able Hematologic Postoperative anemia due to acute blood loss Unknown Current Assessment & Plan Anemic and tachycardic to 150s today, slow decline since admit, likely multifactorial: -Belly and groins scanned, no bleeding but infrarenal AAA noted (3.9cm) -Plasma free hgb 130 on 03/17 --> 60 on 03/18 -multiple blood draws -small blood in ogt, IV PPI started CBC bid Transfused 2u 03/17-03/18 with improved HR from 140s to 120s Heparin at PE-level infusion 03/22 changed all blood draws to pedi tubes Endocrine/Metabolic Hypercholesterolemia Yes Stress hyperglycemia Unknown Current Assessment & Plan Endotool for now Hypernatremia Unknown Current Assessment & Plan Has been climbing since admission. 4.5L FWD 03/21. Will diurese with free water replacemen t beginning today. 03/22: increase FW flushes to 125/hr Other Tobacco use Yes On mechanically assisted ventilation (HCC) Unknown Current Assessment & Plan Mechanical ventilation as hemodynamics stabilize Propofol for sedation, failed trial of precedex 03/18 Soft restraints until extubated Pulmonary Toilet, added metanebs and albuterol today for thick secretions Titrate O2 for sats > 92% On V/AC at 60% FIO2 and tolerating it better than before 03/22: Plan for SBT and extubation today Extubated. Maintaining O2 sats. Monitoring closely SBP < 130 to prevent flash pulm edema At risk for electrolyte imbalance Unknown Current Assessment & Plan Renal function set and magnesium daily ICU lytes protocol begun 03/16 PM as EGFR came below 60 K > 4.5, Mag > 2.5 Opacity of lung on imaging study Unknown Current Assessment & Plan Greatest in RUL. Asp pna vs pulmonary edema. 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 -vanc zosyn stopped 03/17 -fever 38.3 last 4 days -restarted vanc & zosyn for increasing opacities -EOT for vanc-zosyn will be 03/22 (7 days total therapy) Abnormal CK Unknown Current Assessment & Plan 10,000 --> to 15K --> back to 10K Lactate stable, cleared Cr up a tick in setting of vigorous diuresis Unclear if related to STEMI vs left foot ECMO now out On tube feeding diet Unknown Current Assessment & Plan RD note 03/20: Rec changing TF formula to Replete without fiber (high protein formula in EPIC) @ 55 ml/hr x 22 hrs/day (hold one hour before and after warfarin) + 2 packets prosource BID to provide 1450 kcal (1808 kcal with propofol), 137g pro, and ~1000 ml useable fluid/day -When propofol is weaning down, increase Replete to 70 ml/hr x 22 hrs/day (hold for warfari n) + one packet prosource TID to provide 1720 kcal, 144g pro, and ~1290 ml useable fluid per day Physical Exam vitals and nursing note reviewed. Constitutional: He appears well-developed and well-nourished HENT: Head:normocephalic Cardiovascular: regular rhythm, normal heart sounds and intact distal pulses no murmur hear d.Exam reveals no friction rub and no gallop.tachycardic Pulmonary: Patient is intubated He has no wheezesno rales Abdominal: Abdomen is soft. bowel sounds are normal. Slightly distended, improved from yes terday Neurological: He is alert. Skin: Skin is warm and dry. Psychiatric: intubated and sedated Service Cardiology [1024] Admitting provider and ICU treatment team members Provider Role Specialty Pager Mellisa Haji MD Admitting Provider Cardiology [id number] This patient does not have an Advanced Care Note for this Admission. Please use the Goal of care section of your ICU navigator to document the advanced care discussion. Quality section A-Line necessity reviewed: [id number] blood pressure monitoring Reardon necessity reviewed: Hourly/Accurate measurement of urinary output for clinical manage ment of critically ill patients FAST HUG Feeding: Tube Feeds: Replete @ 55 mL/hr Analgesia: APAP, hydromorphone PRN Sedation: N/A Thromboprophylaxis: Heparin infusion Head of Bed: Head of Bed >30 degrees Ulcer Prophylaxis: Famotidine Glycemic Control: insulin infusion Created by Macho Gaytan MD Author:Macho Gaytan MD [address] [id number] signed by Macho Gaytan MD at 03/23/2017 12:35 PM PDTT Tamia leon PA-C - 03/21/2017 7:02 PM PDTFormatting of this note might be different f rom the original. Cardiovascular Intensive Care Unit Clinical Update Note Team: D2 Team Pager: [phone] Attending: Abdulaziz Merrill Name: Ron Mckeon ID: Abbreviated HPI Abbreviated HPI / Daily Assessment Ron Mckeon is a 61 year old man with acute cardiogenic shock in the setting of acu te STEMI from thrombosed left main coronary artery. Initially had lesion in proximal LAD and distal LM, but then acutely thrombosed his left main coronary artery. Now s/p S/p ANY X2. IABP place. Arrived in cardiogenic shock urgently placed on ECMO. Update: Patient re sedated on propofol today continues to have intermittent fevers, on antibiotics Some episodes of hypoxia Hypernatremia- increased free water S: Patient intubated and sedated O: BP 112/76 | Pulse 125 | Temp 38.4 C (101.1 F) | RR 29 | Ht 1.75 m (5' 8.9") | Wt 113.2 kg (249 lb 9 oz) | SpO2 97% | BMI 36.96 kg/(m^2) Physical Exam vitals and nursing note reviewed. Constitutional: He appears well-developed HENT: Head:normocephalic Eyes: pupils are equal, round, and reactive to light Neck: neck supple Cardiovascular: tachycardia Pulmonary: Patient is intubated Abdominal: Abdomen is soft. Distended, positive bowel tones Musculoskeletal: Moves extremities spontaneously Neurological: Opens eyes, nods head. 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) Unknown Respiratory/Chest Acute respiratory failure with hypoxia and hypercapnia (HCC) Unknown Tachypnea Unknown Genitourinary Acute kidney injury (HCC) Unknown Hematologic Postoperative anemia due to acute blood loss Unknown Endocrine/Metabolic Hypercholesterolemia Yes Stress hyperglycemia Unknown Hypernatremia Unknown Other Tobacco use Yes On mechanically assisted ventilation (HCC) Unknown At risk for electrolyte imbalance Unknown Opacity of lung on imaging study Unknown Abnormal CK Unknown On tube feeding diet Unknown Started lasix gtt Lasix 60 mg IV daily Net neg 1-2 liters, achieve this with lasix gtt or lasix bolus Sodium 150, increase free water to 125ml/hr Continue free water flushes Afternoon captopril dose held, received 12.5 mg this AM, reduced dose to 6.25 mg, patient h ypotensive after dose Paused lasix gtt (responded to bolus), lowered next captopril dose to 3.125, lowered propof ol and BP improved I have spent a total of 35 Minutes independently in the direct care and management of th is patient.Time is independent of any time spent teaching or performing any separately billa ble procedures. I reviewed the documented findings, all data and the recent imaging availabl e. EDUIN Alas PA-C Macho Perkins MD - 03/21/2017 1:37 PM PDT Cardiovascular Intensive Care Unit Team Progress Note CVICU D2 Assigned #[id number] ICU Admission Reason Most Recent Value ICU Admission reason Cardiogenic Shock filed at 03/15/2017 1531 Admission dx: left anterior descending artery occlusion, needs cabg 6 Days in ICU 6 Days in Hospital Abbreviated HPI / Daily Assessment Ron Mckeon is a 61 year old man with acute cardiogenic shock in the setting of acu te STEMI from thrombosed left main coronary artery. Initially had lesion in proximal LAD and distal LM, but then acutely thrombosed his left main coronary artery. Now s/p S/p ANY X2. IABP place. Arrived in cardiogenic shock urgently placed on ECMO. 24 Hour events 03/20: ECMO taken down in OR Hep gtt begun 6hr 03/21: fevered throughout night Tmax 38.5. Continues tachypneic with 2 desatting episodes requiring increased PEEP and 100% oxygen to maintain sats above 90. Code Status Code Status Full Code Active Diagnosis with Assessment & Plan Priority Class POA Head/Neck Tongue laceration Yes Current Assessment & Plan Right posterior tongue was lacerated during the difficult intubation Packed with combat gauze on 03/15/1703/19-03/20: ETT with minimal bloody secretions, old appearing Cardiovascular Hypertension Yes * (Principal)Cardiogenic shock (HCC) Yes Current Assessment & Plan S/p IABP 03/15 - 03/16 S/p VA ECMO 03/15-03/19 IABP and R fem venous sheath dc'd 03/16 PM Epi at 0.02 ECHO 03/17: akinetic LAD, apical lateral segments hypokinetic RCA, mid-anterolateral segments Overall LV function has been improving STEMI (ST elevation myocardial infarction) (HCC) Yes Overview Xience Alpine 3.0 mm X 23 mm, Xience Alpine 2.5 mm X 18 mm Current Assessment & Plan Initially had lesion in proximal LAD and distal LM, but then acutely thrombosed/dissected his left main coronary artery. S/p ANY X2. Plavix loaded at the outside hospital and transp orted on ticagrelor and bivalirudin. Troponin peaked at 576 on 03/15. 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 Was shocked 17 times Targeted temperature management resumed overnight Now that more than 72 hrs post arrest, will not pursue TTM Started apap for temp control Abdominal aortic aneurysm (AAA) without rupture (HCC) Unknown Current Assessment & Plan Disclosed by ultrasound 03/17. 3.9cm at widest. Infrarenal. Ischemic cardiomyopathy Unknown Current Assessment & Plan Eplerenone 03/19 --> Captopril 03/19 --> (uptitrated 03/20 AM) CI 1.9 by Alessandro equation 03/20. 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) Unknown Current Assessment & Plan Suspected by anesthesia in OR 03/20 -Heparin infusion 03/19 --> -warfarin 03/20--> Respiratory/Chest Acute respiratory failure with hypoxia and hypercapnia (HCC) Unknown Current Assessment & Plan Left radial paO2 40s overnight, FIo2 titrated down to 40% on vent S/p VA ECMO 03/15-03/19 De-satting episodes overnight 03/21 required increasing PEEP and 100% FIO2 to maintain sats Vent on PS 5/10/45%, RR in high 20s PRN ABGs Sedation package propofol gtt and prn po oxy/iv HM CXR 03/21 with increased b/l infiltrates c/w pulmonary edema Tepid response to 20 of lasix 03/21 AM, 40 mg more given Free water deficit 4.5L with sodium at 150. Will balance giving free water with diuresis Tachypnea Unknown Current Assessment & Plan Two tachypneic episodes overnight requiring oxygen requirement. Suspect pulmonary edema w ith likely pain vs agitation vs fever component. -monitor closely -CXR shows worsening groundglass opacity in 24hr interval Genitourinary Acute kidney injury (HCC) Unknown Current Assessment & Plan Cr stable at 1.29 UOP with minimal response to 20 mg Lasix. Additional 40 given 03/21 PM Holding nephrotoxic agents as able Hematologic Postoperative anemia due to acute blood loss Unknown Current Assessment & Plan Anemic and tachycardic to 150s today, slow decline since admit, likely multifactorial: -Belly and groins scanned, no bleeding but infrarenal AAA noted (3.9cm) -Plasma free hgb 130 on 03/17 --> 60 on 03/18 -multiple blood draws -small blood in ogt, IV PPI started CBC bid Transfused 2u 03/17-03/18 with improved HR from 140s to 120s Heparin at PE-level infusion Endocrine/Metabolic Hypercholesterolemia Yes Stress hyperglycemia Unknown Current Assessment & Plan Endotool for now Hypernatremia Unknown Current Assessment & Plan Has been climbing since admission. 4.5L FWD 03/21. Will diurese with free water replacemen t beginning today. Other Tobacco use Yes On mechanically assisted ventilation (HCC) Unknown Current Assessment & Plan Mechanical ventilation as hemodynamics stabilize Propofol for sedation, failed trial of precedex 03/18 Soft restraints until extubated Pulmonary Toilet, added metanebs and albuterol today for thick secretions Titrate O2 for sats > 92% On V/AC at 60% FIO2 and tolerating it better than before At risk for electrolyte imbalance Unknown Current Assessment & Plan Renal function set and magnesium daily ICU lytes protocol begun 03/16 PM as EGFR came below 60 K > 4.5, Mag > 2.5 Opacity of lung on imaging study Unknown Current Assessment & Plan Greatest in RUL. Asp pna vs pulmonary edema. 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 -vanc zosyn stopped 03/17 -fever 38.3 last 4 days -restarted vanc & zosyn for increasing opacities -EOT for vanc-zosyn will be 03/22 (7 days total therapy) Abnormal CK Unknown Current Assessment & Plan 10,000 --> to 15K --> back to 10K Lactate stable, cleared Cr up a tick in setting of vigorous diuresis Unclear if related to STEMI vs left foot ECMO now out On tube feeding diet Unknown Current Assessment & Plan RD note 03/20: Rec changing TF formula to Replete without fiber (high protein formula in EPIC) @ 55 ml/hr x 22 hrs/day (hold one hour before and after warfarin) + 2 packets prosource BID to provide 1450 kcal (1808 kcal with propofol), 137g pro, and ~1000 ml useable fluid/day -When propofol is weaning down, increase Replete to 70 ml/hr x 22 hrs/day (hold for warfari n) + one packet prosource TID to provide 1720 kcal, 144g pro, and ~1290 ml useable fluid per day Physical Exam vitals and nursing note reviewed. Constitutional: He appears well-developed and well-nourished HENT: Head:normocephalic and atraumatic Cardiovascular: regular rhythm, normal heart sounds and intact distal pulses Tachycardic, o ccasional ectopic beats Pulmonary: Patient is intubated Abdominal: bowel sounds are normal. Abdomen firm Neurological: Able to weakly move all four extremities to command, right stronger than left . Currently intubated and sedated. Skin: Skin is warm and dry. Psychiatric: Obeying commands this morning. Currently sedated . Service Cardiology [[id number]] Admitting provider and ICU treatment team members Provider Role Specialty Pager Mellisa Haji MD Admitting Provider Cardiology [id number] This patient does not have an Advanced Care Note for this Admission. Please use the Goal of care section of your ICU navigator to document the advanced care discussion. Quality section A-Line necessity reviewed: [id number] blood pressure monitoring CVC necessity reviewed: Hemodynamic monitoring Reardon necessity reviewed: Hourly/Accurate measurement of urinary output for clinical manage ment of critically ill patients FAST HUG Feeding: Tube Feeds: Replete @ 55 mL/hr Analgesia: Tylenol, oxycodone, hydromorphone Sedation: Propofol Thromboprophylaxis: SCDs Head of Bed: Head of Bed >30 degrees Ulcer Prophylaxis: Famotidine Glycemic Control: insulin infusion Created by Macho Gaytan MD Author:Macho Gaytan MD [address] [id number] signed by Macho Gaytan MD at 03/21/2017 1:43 PM Anurag Paredes MD - 03/21/2017 12:22 PM PDT Cardiovascular Intensive Care Unit Attending Progress Note CVICU D2 Assigned #[id number] ICU Admission Reason Most Recent Value ICU Admission reason Cardiogenic Shock filed at 03/15/2017 1531 Hospital admission dx: left anterior descending artery occlusion, needs cabg 6 Days in ICU 6 Days in Hospital Abbreviated HPI / Daily Assessment Ron Mckeon is a 61 year old man with acute cardiogenic shock in the setting of acu te STEMI from thrombosed left main coronary artery. Initially had lesion in proximal LAD and distal LM, but then acutely thrombosed his left main coronary artery. Now s/p S/p ANY X2. IABP place. Arrived in cardiogenic shock urgently placed on ECMO. Medical Decision Making 61 year old male with long tobacco abuse history, presenting with acute RI and STEMI, resu ltant cardiogenic shock refractory to IABP, cannulated for VA ECMO via left femoral vein and left femoral artery with antegrade perfusion catheter. Has also had aspiration event, conin ued on IV abx for management of this. Decannulated from ECMO 03/19/17. Desats overnight. Off epi. Continues to be febrile on vanco/zosyn Plan: - Continue antibiotics for 7 day course - continue with diuresis with goal of 1-2L net negative - increase captopril 18.75mg q8h - Increase eplerenone - Increase oxycodone - Propofol for RAAS 0-1 - Will change to volume mode on ventilator to rest and assess for extubation tomorrow - 8cc/kg Vt - no beta-blockers until heart is recovered from cardiogenic shock a little more - continue tube feeds and add free water for hypernatremia - given fevers remove PA catheter and introducer - place midline Dispo: CVICU Hospital Problems Priority POA Head/Neck Tongue laceration Yes Cardiovascular Hypertension Yes * (Principal)Cardiogenic shock (HCC) Yes STEMI (ST elevation myocardial infarction) (HCC) Yes Coronary artery disease Yes Ventricular fibrillation (HCC) No Abdominal aortic aneurysm (AAA) without rupture (HCC) Unknown Ischemic cardiomyopathy Unknown 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) Unknown Respiratory/Chest Acute respiratory failure with hypoxia and hypercapnia (HCC) Unknown Tachypnea Unknown Genitourinary Acute kidney injury (HCC) Unknown Hematologic Postoperative anemia due to acute blood loss Unknown Endocrine/Metabolic Hypercholesterolemia Yes Stress hyperglycemia Unknown Hypernatremia Unknown Other Tobacco use Yes On mechanically assisted ventilation (HCC) Unknown At risk for electrolyte imbalance Unknown Opacity of lung on imaging study Unknown Abnormal CK Unknown Shivering Unknown On tube feeding diet Unknown Service Cardiology [1024] Admitting provider and ICU treatment team members Provider Role Specialty Pager Mellisa Haji MD Admitting Provider Cardiology 65283 Code Status Code Status Full Code Quality section A-Line necessity reviewed: Wfno-wk-eumf blood pressure monitoring CVC necessity reviewed: Plan to DC today Reardon necessity reviewed: Hourly/Accurate measurement of urinary output for clinical manage ment of critically ill patients I have spent a total of 39 minutes in the direct care and management of this patient indepe ndent of any time spent teaching or performing any separately billable procedures. I reviewe d the documented findings, all data and the recent imaging available. I saw and evaluated t he patient at the bedside together with Dr. Gaytan.Please see their note for details. I agre e with the assessment and plan as described in the resident's note with the following except ions/additions as noted. Date of Service: 03/21/2017 Author:Anurag Ashby MD [address] [id number] [place] [id number] signed by Anurag Ashby MD at 03/21/2017 12:22 PM P Jose Ramon Coburn MD - 03/20/2017 12:36 PM PDTFormatting of this note might be differen t from the original. Cardiovascular Intensive Care Unit Team Progress Note CVICU D2 Assigned #[id number] ICU Admission Reason Most Recent Value ICU Admission reason Cardiogenic Shock filed at 03/15/2017 1531 Admission dx: left anterior descending artery occlusion, needs cabg 5 Days in ICU 5 Days in Hospital Abbreviated HPI / Daily Assessment Ron Mckeon is a 61 year old man with acute cardiogenic shock in the setting of acu te STEMI from thrombosed left main coronary artery. Initially had lesion in proximal LAD and distal LM, but then acutely thrombosed his left main coronary artery. Now s/p S/p ANY X2. IABP place. Arrived in cardiogenic shock urgently placed on ECMO. 24 Hour events 03/20: ECMO taken down in OR Hep gtt begun 6hr Code Status Code Status Full Code Active Diagnosis with Assessment & Plan Priority Class POA Head/Neck Tongue laceration Yes Current Assessment & Plan Right posterior tongue was lacerated during the difficult intubation Packed with combat gauze on 03/15/1703/19-03/20: ETT with minimal bloody secretions, old appearing Cardiovascular Hypertension Yes Cardiogenic shock (HCC) Yes Current Assessment & Plan S/p IABP 03/15 - 03/16 S/p VA ECMO 03/15-03/19 IABP and R fem venous sheath dc'd 03/16 PM Epi at 0.02 ECHO 03/17: akinetic LAD, apical lateral segments hypokinetic RCA, mid-anterolateral segments Overall LV function has been improving STEMI (ST elevation myocardial infarction) (HCC) Yes Overview Xience Alpine 3.0 mm X 23 mm, Xience Alpine 2.5 mm X 18 mm Current Assessment & Plan Initially had lesion in proximal LAD and distal LM, but then acutely thrombosed/dissected his left main coronary artery. S/p ANY X2. Plavix loaded at the outside hospital and transp orted on ticagrelor and bivalirudin. Troponin peaked at 576 on 03/15. 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 Was shocked 17 times Targeted temperature management resumed overnight Now that more than 72 hrs post arrest, will not pursue TTM Started apap for temp control Abdominal aortic aneurysm (AAA) without rupture (HCC) Unknown Current Assessment & Plan Disclosed by ultrasound 03/17. 3.9cm at widest. Infrarenal. Ischemic cardiomyopathy Unknown Current Assessment & Plan Eplerenone 03/19 --> Captopril 03/19 --> (uptitrated 03/20 AM) CI 1.9 by Alessandro equation 03/20. Will maintain epi at 0.01 for now. 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 Suspect pain vs agitation vs fever. -monitor closely -CXR shows interval improvement in costophrenic blunting bilaterally, with persistent R>L groundglass opacities -will trial a dose of seroquel this afternoon Genitourinary Acute kidney injury (HCC) Unknown Current Assessment & Plan Cr stable at 1.3 UOP excellent Holding nephrotoxic agents as able Hematologic Postoperative anemia due to acute blood loss Unknown Current Assessment & Plan Anemic and tachycardic to 150s today, slow decline since admit, likely multifactorial: -Belly and groins scanned, no bleeding but infrarenal AAA noted (3.9cm) -Plasma free hgb 130 on 03/17 --> 60 on 03/18 -multiple blood draws -small blood in ogt, IV PPI started CBC bid Transfused 2u 03/17-03/18 with improved HR from 140s to 120s Heparin at PE-level infusion Endocrine/Metabolic Hypercholesterolemia Yes Stress hyperglycemia Unknown Current Assessment & Plan Endotool for now Hypernatremia Unknown Current Assessment & Plan Mild. Has been climbing since admission. 2.9L FWD 03/20. Will gently diurese today and hol d on free water replacement for now. Other Tobacco use Yes On mechanically assisted ventilation (HCC) Unknown Current Assessment & Plan Mechanical ventilation as hemodynamics stabilize Propofol for sedation, failed trial of precedex 03/18 Soft restraints until extubated Pulmonary Toilet, added metanebs and albuterol today for thick secretions Titrate O2 for sats > 92% Does not tolerate V/AC On PS, 01/14 at 50% Fi At risk for electrolyte imbalance Unknown Current Assessment & Plan Renal function set and magnesium daily ICU lytes protocol begun 03/16 PM as EGFR came below 60 K > 4.5, Mag > 2.5 Opacity of lung on imaging study Unknown Current Assessment & Plan Greatest in RUL. Asp pna vs pulmonary edema. 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 -vanc zosyn stopped 03/17 -fever 38.3 last 3 days -oxygen requirement stable -EOT for vanc-zosyn will be 03/22 (7 days total therapy) Abnormal CK Unknown Current Assessment & Plan 10,000 --> to 15K --> back to 10K Lactate stable, cleared Cr up a tick in setting of vigorous diuresis Unclear if related to STEMI vs left foot ECMO now out Shivering Unknown Current Assessment & Plan In setting of TTM. Causing desaturation. Requiring propofol rates as high as 60. Will dc TTM. -03/19: still intermittent w/o TTM, but not causing desats -continue to monitor On tube feeding diet Unknown Current Assessment & Plan RD note 03/20: Rec changing TF formula to Replete without fiber (high protein formula in EPIC) @ 55 ml/hr x 22 hrs/day (hold one hour before and after warfarin) + 2 packets prosource BID to provide 1450 kcal (1808 kcal with propofol), 137g pro, and ~1000 ml useable fluid/day -When propofol is weaning down, increase Replete to 70 ml/hr x 22 hrs/day (hold for warfari n) + one packet prosource TID to provide 1720 kcal, 144g pro, and ~1290 ml useable fluid per day Code Status Updated to: FULL Physical Exam vitals and nursing note reviewed. Constitutional: He appears well-developed and well-nourished HENT: Throat: oropharynx is clear and moist Minimal crusted blood in nares bilaterally, improved from previous. Cardiovascular: Tachy, no murmurs. Biphasic signals at PTs and DPs bilaterally. Extremities warm and well perfused x4. 2+ peripheral edema. Groin site with pressure dressing. Pulmonary: Patient is intubated No respiratory distress. Coarse bilaterally, though improv ed from previous. Abdominal: Abdomen is soft. Neurological: Spontaneous eye opening. Does not follow commands. Does not track. Skin: Skin is warm and dry. Service Cardiology [1024] Admitting provider and ICU treatment team members Provider Role Specialty Pager Mellisa Haji MD Admitting Provider Cardiology [id number] Quality section A-Line necessity reviewed: Nawy-zj-fnjx blood pressure monitoring CVC necessity reviewed: Hemodynamic monitoring and Medication requires central access Reardon necessity reviewed: Hourly/Accurate measurement of urinary output for clinical manage ment of critically ill patients and Perioperative use FAST HUG Feeding: Tube Feeds Analgesia: multimodal Sedation: propofol Thromboprophylaxis: Heparin infusion Head of Bed: Head of Bed >30 degrees Ulcer Prophylaxis: Famotidine Glycemic Control: insulin infusion Created by Jose Ramon Alvarado MD Author:Jose Ramon Alvarado MD [address] [id number] signed by Jose Ramon Alvarado MD at 03/20/2017 12:49 PM PDTMoulton, Anurag Soni MD - 03/20/2017 12:18 PM PDTFormatting of this note might be differen t from the original. Cardiovascular Intensive Care Unit Attending Progress Note CVICU D2 Assigned #[id number] ICU Admission Reason Most Recent Value ICU Admission reason Cardiogenic Shock filed at 03/15/2017 1531 Hospital admission dx: left anterior descending artery occlusion, needs cabg 5 Days in ICU 5 Days in Hospital Abbreviated HPI / Daily Assessment Ron Mckeon is a 61 year old man with acute cardiogenic shock in the setting of acu te STEMI from thrombosed left main coronary artery. Initially had lesion in proximal LAD and distal LM, but then acutely thrombosed his left main coronary artery. Now s/p S/p ANY X2. IABP place. Arrived in cardiogenic shock urgently placed on ECMO. Medical Decision Making 61 year old male with long tobacco abuse history, presenting with acute RI and STEMI, resu ltant cardiogenic shock refractory to IABP, cannulated for VA ECMO via left femoral vein and left femoral artery with antegrade perfusion catheter. Has also had aspiration event, conin ued on IV abx for management of this. Decannulated from ECMO yesterday. Plan: - Continue antibiotics for 7 day course - continue with diuresis with goal of 1L net negative - wean sedation and assess for ability to extubate - increase captopril 6.25mg q8h - likely come off epi later this afternoon - no beta-blockers until heart is recovered from cardiogenic shock a little more - continue tube feeds for now Dispo: CVICU Hospital Problems Priority POA Head/Neck Tongue laceration Yes Cardiovascular Hypertension Yes Cardiogenic shock (HCC) Yes STEMI (ST elevation myocardial infarction) (HCC) Yes Coronary artery disease Yes Ventricular fibrillation (HCC) No Abdominal aortic aneurysm (AAA) without rupture (HCC) Unknown Ischemic cardiomyopathy Unknown 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) Unknown Respiratory/Chest Acute respiratory failure with hypoxia and hypercapnia (HCC) Unknown Genitourinary Acute kidney injury (HCC) Unknown Hematologic Postoperative anemia due to acute blood loss Unknown Endocrine/Metabolic Hypercholesterolemia Yes Stress hyperglycemia Unknown Hypernatremia Unknown Other Tobacco use Yes On mechanically assisted ventilation (HCC) Unknown At risk for electrolyte imbalance Unknown Opacity of lung on imaging study Unknown Abnormal CK Unknown Shivering Unknown On tube feeding diet Unknown Service Cardiology [1024] Admitting provider and ICU treatment team members Provider Role Specialty Pager Mellisa Haji MD Admitting Provider Cardiology [id number] Code Status Code Status Full Code Quality section A-Line necessity reviewed: Sbti-ms-[id number] blood pressure monitoring CVC necessity reviewed: Medication requires central access Reardon necessity reviewed: Hourly/Accurate measurement of urinary output for clinical manage ment of critically ill patients I have spent a total of 33 minutes in the direct care and management of this patient indepe ndent of any time spent teaching or performing any separately billable procedures. I reviewe d the documented findings, all data and the recent imaging available. I saw and evaluated t he patient at the bedside together with Dr. Alvarado.Please see their note for details. I agre e with the assessment and plan as described in the resident's note with the following except ions/additions as noted. Date of Service: 03/20/2017 Author:Anurag Ashby MD [address] [address] [place] [id number] signed by Anurag Ashby MD at 03/20/2017 12:18 PM P Raul Conte MD - 03/19/2017 11:01 PM PDTFormatting of this note might be different fro m the original. Cardiovascular Intensive Care Unit Attending Progress Note CVICU D2 Assigned #[id number] ICU Admission Reason Most Recent Value ICU Admission reason Cardiogenic Shock filed at 03/15/2017 1531 Hospital admission dx: left anterior descending artery occlusion, needs cabg 4 Days in ICU 4 Days in Hospital Abbreviated HPI / Daily Assessment Ron Mckeon is a 61 year old man with acute cardiogenic shock in the setting of acu te STEMI from thrombosed left main coronary artery. Initially had lesion in proximal LAD and distal LM, but then acutely thrombosed his left main coronary artery. Now s/p S/p ANY X2. IABP place. Arrived in cardiogenic shock urgently placed on ECMO. Medical Decision Making 61 year old male with long tobacco abuse history, presenting with acute RI and STEMI, resu ltant cardiogenic shock refractory to IABP, cannulated for VA ECMO via left femoral vein and left femoral artery with antegrade perfusion catheter. Has also had aspiration event, conin ued on IV abx for management of this. He remains intubated, and has a successful decannulati on today. Concern for sepsis today with his elevated thermodilution CI, but his SvO2 from th e distal PA port was 47, not consistent with sepsis. Will keep Abx, but okay to diurese. Plan: - no betablockers while on inotropes despite tachycardia - Continue antibiotics - continue with diiuresis - delirious, no plan for extubation right now Dispo: CVICU Hospital Problems Priority POA Head/Neck Tongue laceration Yes Cardiovascular Hypertension Yes Cardiogenic shock (HCC) Yes STEMI (ST elevation myocardial infarction) (HCC) Yes Coronary artery disease Yes Ventricular fibrillation (HCC) No Abdominal aortic aneurysm (AAA) without rupture (HCC) Unknown Ischemic cardiomyopathy Unknown Respiratory/Chest Acute respiratory failure with hypoxia and hypercapnia (HCC) Unknown Genitourinary Acute kidney injury (HCC) Unknown Hematologic Postoperative anemia due to acute blood loss Unknown Endocrine/Metabolic Hypercholesterolemia Yes Lactic acid acidosis Unknown Stress hyperglycemia Unknown Other Tobacco use Yes On mechanically assisted ventilation (HCC) Unknown At risk for electrolyte imbalance Unknown Opacity of lung on imaging study Unknown Abnormal CK Unknown Shivering Unknown Service Cardiology [1024] Admitting provider and ICU treatment team members Provider Role Specialty Pager Mellisa Haji MD Admitting Provider Cardiology [id number] Code Status Code Status Full Code Quality section A-Line necessity reviewed: Eafx-yb-[id number] blood pressure monitoring CVC necessity reviewed: Hemodynamic monitoring Reardon necessity reviewed: Hourly/Accurate measurement of urinary output for clinical manage ment of critically ill patients I have spent a total of 35 minutes in the direct care and management of this patient indepe ndent of any time spent teaching or performing any separately billable procedures. I reviewe d the documented findings, all data and the recent imaging available. Greater than 50% of th is time was spent on counseling and coordination of care. Date of Service: 03/19/2017 Author:Raul Wei MD [address] [id number] Jose Ramon Rodriguez MD - 03/19/2017 4:49 PM PDT Cardiovascular Intensive Care Unit Team Progress Note CVICU D2 Assigned #[id number] ICU Admission Reason Most Recent Value ICU Admission reason Cardiogenic Shock filed at 03/15/2017 1531 Admission dx: left anterior descending artery occlusion, needs cabg 4 Days in ICU 4 Days in Hospital Abbreviated HPI / Daily Assessment Ron Mckeon is a 61 year old man with acute cardiogenic shock in the setting of acu te STEMI from thrombosed left main coronary artery. Initially had lesion in proximal LAD and distal LM, but then acutely thrombosed his left main coronary artery. Now s/p S/p ANY X2. IABP place. Arrived in cardiogenic shock urgently placed on ECMO. 24 Hour events 03/19: Did well overnight 2.7L net neg Code Status Code Status Full Code Active Diagnosis with Assessment & Plan Priority Class POA Head/Neck Tongue laceration Yes Current Assessment & Plan Right posterior tongue was lacerated during the difficult intubation Packed with combat gauze on 03/15/17 Monitor closely If blood in gastric suction consider this Cardiovascular Hypertension Yes Cardiogenic shock (HCC) Yes Current Assessment & Plan S/p IABP 03/15 - 03/16 S/p VA ECMO 03/15-03/19 IABP and R fem venous sheath dc'd 03/16 PM Epi at 0.02 ECHO 03/17: akinetic LAD, apical lateral segments hypokinetic RCA, mid-anterolateral segments Overall LV function has been improving STEMI (ST elevation myocardial infarction) (HCC) Yes Overview Xience Alpine 3.0 mm X 23 mm, Xience Alpine 2.5 mm X 18 mm Current Assessment & Plan Initially had lesion in proximal LAD and distal LM, but then acutely thrombosed/dissected his left main coronary artery. S/p ANY X2. Plavix loaded at the outside hospital and transp orted on ticagrelor and bivalirudin. Troponin peaked at 576 on 03/15. 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 Was shocked 17 times Targeted temperature management resumed overnight Now that more than 72 hrs post arrest, will not pursue TTM Started apap for temp control Abdominal aortic aneurysm (AAA) without rupture (HCC) Unknown Current Assessment & Plan Disclosed by ultrasound 03/17. 3.9cm at widest. Infrarenal. Ischemic cardiomyopathy Unknown Current Assessment & Plan Eplerenone 03/19 --> Captopril 03/19 --> Respiratory/Chest Acute respiratory failure with hypoxia and hypercapnia (HCC) Unknown Current Assessment & Plan Left radial paO2 40s overnight, FIo2 increased to 50% on vent S/p VA ECMO 03/15-03/19 Vent on PS 5/5/50%, RR in high teens PRN ABGs Tube feeds started 03/17, held for OR 03/19, will re-start Sedation package changed to propofol gtt and prn po oxy/iv HM Genitourinary Acute kidney injury (HCC) Unknown Current Assessment & Plan Cr stable at 1.3 UOP excellent Holding nephrotoxic agents as able Hematologic Postoperative anemia due to acute blood loss Unknown Current Assessment & Plan Anemic and tachycardic to 150s today, slow decline since admit, likely multifactorial: -Belly and groins scanned, no bleeding but infrarenal AAA noted (3.9cm) -Plasma free hgb 130 on 03/17 --> 60 on 03/18 -multiple blood draws -small blood in ogt, IV PPI started CBC bid Transfused 2u 03/17-03/18 with improved HR from 140s to 120s Heparin decreased in range to vad protocol given above Endocrine/Metabolic Hypercholesterolemia Yes Lactic acid acidosis Unknown Current Assessment & Plan Improved, not following lactate Stress hyperglycemia Unknown Current Assessment & Plan Endotool for now Other Tobacco use Yes On mechanically assisted ventilation (HCC) Unknown Current Assessment & Plan Mechanical ventilation as hemodynamics stabilize Propofol for sedation, failed trial of precedex 03/18 Soft restraints until extubated Pulmonary Toilet, added metanebs and albuterol today for thick secretions Titrate O2 for sats > 92% Does not tolerate V/AC On PS, 01/14 at 50% Fi At risk for electrolyte imbalance Unknown Current Assessment & Plan Renal function set and magnesium daily ICU lytes protocol begun 03/16 PM as EGFR came below 60 K > 4.5, Mag > 2.5 Opacity of lung on imaging study Unknown Current Assessment & Plan Greatest in RUL. Asp pna vs pulmonary edema. 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 -vanc zosyn stopped 03/17 -fever 38.3 03/17 PM --> cultures sent, vanc zosyn resumed -continue for now given persistent RUL infiltrate Abnormal CK Unknown Current Assessment & Plan 10,000 --> to 15K --> back to 10K Lactate stable, cleared Cr up a tick in setting of vigorous diuresis Unclear if related to STEMI vs left foot ECMO now out Shivering Unknown Current Assessment & Plan In setting of TTM. Causing desaturation. Requiring propofol rates as high as 60. Will dc TTM. -03/19: still intermittent w/o TTM, but not causing desats -continue to monitor Code Status Updated to: FULL Physical Exam vitals and nursing note reviewed. Constitutional: He appears well-developed and well-nourished HENT: Mild crusted blood in nares bilaterally as before Cardiovascular: regular rhythm Tachy, no murmurs. LE warm and well perfused, in rooke boots . Toes with cap refill less than 1 second bilaterally. Monophasic PT signal on L. Biphasic a t R PT. Pulmonary: Patient is intubated Abdominal: Abdomen is soft. Musculoskeletal: 2+ pedal edema bilaterally Neurological: Opens eyes to voice. Does not track. Does not follow commands. Skin: Skin is warm and dry. No rashes Service Cardiology [1024] Admitting provider and ICU treatment team members Provider Role Specialty Pager Mellisa Haji MD Admitting Provider Cardiology [id number] Quality section A-Line necessity reviewed: Hsaa-zs-cugq blood pressure monitoring CVC necessity reviewed: Hemodynamic monitoring Reardon necessity reviewed: Hourly/Accurate measurement of urinary output for clinical manage ment of critically ill patients FAST HUG Feeding: TFs Analgesia: multimodal Sedation: propofol Thromboprophylaxis: Heparin infusion Head of Bed: Head of Bed >30 degrees Ulcer Prophylaxis: protonix Glycemic Control: insulin infusion Created by Jose Ramon Alvarado MD Author:Jose Ramon Alvarado MD [address] [id number] signed by Jose Ramon Alvarado MD at 03/19/2017 4:54 PM Lee Fernandez MD - 03/19/2017 2:22 PM PDTFormatting of this note might be different fr om the original. . Extracorporeal Life Support Service Daily Progress Note Pager #[phone] Type: Veno-Arterial (CPT 00897 [place] [address]) Date of insertion: 03/15/2017 Diagnosis:Cardiogenic shock Dressing changed: no Dressing Changed Cannula position checked: Cannula Position Checked Anticoagulation held (within past 24 hours?): no Anticoagulation Held Packed cell transfusion: no Packed Cell Transfusion Recirculation / wean attempt: no Recirculation / Wean Attempt Cannulation Number of cannulas: 2 Cannula #1 Flow type (relative to Patient): Venous inflow Insertion side: Left Insertion site: Femoral vein Catheter Type: Single lumen venous Size: 19 fr Length: 55 cm Cannula #2 Flow type (relative to Patient): Arterial inflow Insertion side: Left Insertion site: Femoral vein Type: Single lumen arterial Size:17 fr Length:23 cm Distal perfusion catheter used: Yes ECMO Settings Pump speed: 2875 RPM Blood flow: 3.07 L/min Oxygenator FiO2: 100 % Oxygen sweep gas: 3 L/min Tidal volume: 6 ml/kg FiO2: 100 % Peak pressure: 21 cmH2O PEEP: 10 cmH2O Blood Gas PH: 7.49 /PaO2: 98/ PCO2: 36/ HCO3: 27.5/ BE: 4.2 Anticoagulation (see MAR) Heparin Assessment: 1 61 y/o M STEMI 03/15 with LM dissection and stent a/w cardiogenic shock, prolonged CPR carmelita jose on VA ECMO same day and supported thru this morning. 2 Improved cardiac function with stable poor oxygenation and ventilation considered ready to come off VA ECMO after trial yesterday and a second trial this morning 3 Cont improved renal function 4 Improved CK with monophasic doppler signal in foot and slow cap refill stable 5 Stable off ECMO in OR and care in capable hands of 12 K intensevists and cardiology. ank you for allowing us to help you Plan 1 Decannulate in OR - Done and tolerated well (This was done after short period of turning off sweep gas and dropping flow rate to 1 to see how his pulm function and oxygenation as w ell as heart function before transporting to OR-he tolerated this well.) 2 Return of weakly palp PT pulse and strong doppler signals in PT and DP at foot/ankle 3 Stable HR and pressure with decannulation except for short drop in BP. Cannula sites dr y Lyle Rj Amos MD [place] , Anurag Soni MD - 03/19/2017 2:16 PM PDTFormatting of this note might be different from the or iginal. Cardiovascular Intensive Care Unit Attending Progress Note CVICU D2 Assigned #[id number] ICU Admission Reason Most Recent Value ICU Admission reason Cardiogenic Shock filed at 03/15/2017 1531 Hospital admission dx: left anterior descending artery occlusion, needs cabg 4 Days in ICU 4 Days in Hospital Abbreviated HPI / Daily Assessment Ron cMkeon is a 61 year old man with acute cardiogenic shock in the setting of acu te STEMI from thrombosed left main coronary artery. Initially had lesion in proximal LAD and distal LM, but then acutely thrombosed his left main coronary artery. Now s/p S/p ANY X2. IABP place. Arrived in cardiogenic shock urgently placed on ECMO. Medical Decision Making 61 year old male with long tobacco abuse history, presenting with acute RI and STEMI, resu ltant cardiogenic shock refractory to IABP, cannulated for VA ECMO via left femoral vein and left femoral artery with antegrade perfusion catheter. Plan: - ECMO decannulation - Continue antibiotics - Will need diuresed after OR - Once decannulated will evaluate for extubation - Backup of impella for support if fails decannulation Dispo: CVICU Hospital Problems Priority POA Head/Neck Tongue laceration Yes Cardiovascular Hypertension Yes Cardiogenic shock (HCC) Yes STEMI (ST elevation myocardial infarction) (HCC) Yes Coronary artery disease Yes Ventricular fibrillation (HCC) No Abdominal aortic aneurysm (AAA) without rupture (HCC) Unknown Ischemic cardiomyopathy Unknown Respiratory/Chest Acute respiratory failure with hypoxia and hypercapnia (HCC) Unknown Genitourinary Acute kidney injury (HCC) Unknown Hematologic Postoperative anemia due to acute blood loss Unknown Endocrine/Metabolic Hypercholesterolemia Yes Lactic acid acidosis Unknown Stress hyperglycemia Unknown Other Tobacco use Yes On mechanically assisted ventilation (HCC) Unknown At risk for electrolyte imbalance Unknown Opacity of lung on imaging study Unknown Abnormal CK Unknown Shivering Unknown Service Cardiology [1024] Admitting provider and ICU treatment team members Provider Role Specialty Pager Mellisa Haji MD Admitting Provider Cardiology 25976 Code Status Code Status Full Code Quality section A-Line necessity reviewed: Jggl-ec-[id number] blood pressure monitoring CVC necessity reviewed: Medication requires central access Reardon necessity reviewed: Hourly/Accurate measurement of urinary output for clinical manage ment of critically ill patients I have spent a total of 55 minutes in the direct care and management of this patient indepe ndent of any time spent teaching or performing any separately billable procedures. I reviewe d the documented findings, all data and the recent imaging available. I saw and evaluated t he patient at the bedside together with Dr. Alvarado.Please see their note for details. I agre e with the assessment and plan as described in the resident's note with the following except ions/additions as noted. Date of Service: 03/19/2017 Author:Anurag Ashby MD [address] [id number] signed by Anurag Ashby MD at 03/19/2017 2:17 PM P Jose Ramon Coburn MD - 03/18/2017 12:56 PM PDTFormatting of this note might be differen t from the original. Cardiovascular Intensive Care Unit Team Progress Note CVICU D2 Assigned #[id number] ICU Admission Reason Most Recent Value ICU Admission reason Cardiogenic Shock filed at 03/15/2017 1531 Admission dx: left anterior descending artery occlusion, needs cabg 3 Days in ICU 3 Days in Hospital Abbreviated HPI / Daily Assessment Ron Mckeon is a 61 year old man with acute cardiogenic shock in the setting of acu te STEMI from thrombosed left main coronary artery. Initially had lesion in proximal LAD and distal LM, but then acutely thrombosed his left main coronary artery. Now s/p S/p ANY X2. IABP place. Arrived in cardiogenic shock urgently placed on ECMO. 24 Hour events 03/18: Fi came up to 50% from 40 Tolerated PS well overnight Got 2U pRBC Sweep decreased for co2 30 Followed commands Trialed on milrinone, precedex, but tolerated poorly --> both since dc'd Epi down to 0.02 Frequent shivering causing desats to low 80s Code Status Code Status Full Code Active Diagnosis with Assessment & Plan Priority Class POA Cardiovascular Hypertension Yes Cardiogenic shock (HCC) Yes Current Assessment & Plan S/p IABP and ECMO placement 03/15 IABP and R fem venous sheath dc'd 03/16 PM Epinephrine transitioned to Milrinone 0.125 for hypertension, then back to epi 2/2 hypotens ion ecmo flow decreased to 3lpm to reduce afterload Discussed possible removal tomorrow (hal) or (obdulio) pm STEMI (ST elevation myocardial infarction) ([facility]) Yes Overview Xience Alpine 3.0 mm X 23 mm, Xience Alpine 2.5 mm X 18 mm Current Assessment & Plan Initially had lesion in proximal LAD and distal LM, but then acutely thrombosed/dissected his left main coronary artery. S/p ANY X2. Plavix loaded at the outside hospital and transp orted on ticagrelor and bivalirudin. Troponin peaked at 576 on 03/15. 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 Was shocked 17 times Targeted temperature management stopped today when he followed commands Started apap for temp control Respiratory/Chest Acute respiratory failure with hypoxia and hypercapnia (HCC) Unknown Current Assessment & Plan Much dyssynchrony with a variety of settings, currently looks comfortable with vol SIMV Left radial paO2 40s overnight, FIo2 increased to 50% on vent VA ECMO PRN ABGs Tube feeds started today Sedation package changed to propofol gtt and prn po oxy/iv HM Genitourinary Acute kidney injury (HCC) Unknown Current Assessment & Plan Cr stable at 1.3 UOP reasonable Holding nephrotoxic agents as able MAP>65 Digestive Tongue laceration Yes Current Assessment & Plan Right posterior tongue was lacerated during the difficult intubation Packed with combat gauze on 03/15/17 Monitor closely If blood in gastric suction consider this Hematologic Postoperative anemia due to acute blood loss Unknown Current Assessment & Plan Anemic and tachycardic to 150s today, slow decline since admit, likely multifactorial: -Belly and groins scanned, no bleeding but infrarenal AAA noted (3.9cm) -Plasma free hgb 130 -multiple blood draws -small blood in ogt, IV PPI started CBC bid Transfused 1u today with improved HR from 140s to 120s Heparin decreased in range to vad protocol given above Endocrine/Metabolic Hypercholesterolemia Yes Lactic acid acidosis Unknown Current Assessment & Plan Improved, not following lactate Stress hyperglycemia Unknown Current Assessment & Plan Endotool for now Other Tobacco use Yes On mechanically assisted ventilation (HCC) Unknown Current Assessment & Plan Mechanical ventilation as hemodynamics stabilize Propofol for sedation, failed trial of precedex today Soft restraints until extubated Pulmonary Toilet, added metanebs and albuterol today for thick secretions Titrate O2 for sats > 92% At risk for electrolyte imbalance Unknown Current Assessment & Plan Renal function set and magnesium daily ICU lytes protocol begun 710 PM as EGFR came below 60 K > 4.5, Mag > 2.5 Opacity of lung on imaging study Unknown Current Assessment & Plan Greatest in RUL. Asp pna vs pulmonary edema. 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 -vanc zosyn stopped today Abnormal CK Unknown Current Assessment & Plan 10,000 today, repeat 9pm Unclear if related to STEMI vs left foot Code Status Updated to: FULL Physical Exam vitals and nursing note reviewed. Constitutional: He appears well-developed and well-nourished HENT: Blood crusted on lips and bilateral nares, no active hemorrhage. No bloody or black f luid in OGT suction canister. Neck: neck supple R IJ site w/o erythema, induration, fluctuance, leak Cardiovascular: normal rate and regular rhythm No heart tones on auscultation. Cap refill i n feet less than 2 seconds bilaterally. PT pulses not palpable. PT on left with monophasic s ignal. PT on right with triphasic signal. Pulmonary: Patient is intubated He has no wheezes No respiratory distress. Coarse lung curtis nds bilaterally Abdominal: There is no guarding He exhibits distention. He exhibits no mass. Abdomen more tense and distended today. Neurological: RASS -4. Doll's eyes present bilaterally Skin: Skin is warm. No mottling of distal extremities. Duskiness of L hallux improved. Service Cardiology [1024] Admitting provider and ICU treatment team members Provider Role Specialty Pager Mellisa Haji MD Admitting Provider Cardiology 68022 Quality section A-Line necessity reviewed: Jcal-xe-xvap blood pressure monitoring CVC necessity reviewed: Hemodynamic monitoring Reardon necessity reviewed: Hourly/Accurate measurement of urinary output for clinical manage ment of critically ill patients FAST HUG Feeding: trickle feeds Analgesia: multimodal Sedation: propofol Thromboprophylaxis: Heparin infusion Head of Bed: Head of Bed >30 degrees Ulcer Prophylaxis: nexium Glycemic Control: insulin infusion Created by Jose Ramon Alvarado MD Author:Jose Ramon Alvarado MD [address] [phone] signed by Jose Ramon Alvarado MD at 03/18/2017 1:27 PM PDTMoulton, Anurag Soni MD - 03/18/2017 11:56 AM PDTFormatting of this note might be differen t from the original. Cardiovascular Intensive Care Unit Attending Progress Note CVICU D2 Assigned #[id number] ICU Admission Reason Most Recent Value ICU Admission reason Cardiogenic Shock filed at 03/15/2017 1531 Hospital admission dx: left anterior descending artery occlusion, needs cabg 3 Days in ICU 3 Days in Hospital Abbreviated HPI / Daily Assessment Ron Mckeon is a 61 year old man with acute cardiogenic shock in the setting of acu te STEMI from thrombosed left main coronary artery. Initially had lesion in proximal LAD and distal LM, but then acutely thrombosed his left main coronary artery. Now s/p S/p ANY X2. IABP place. Arrived in cardiogenic shock urgently placed on ECMO. Medical Decision Making 61 year old male with long tobacco abuse history, presenting with acute RI and STEMI, resu ltant cardiogenic shock refractory to IABP, cannulated for VA ECMO via left femoral vein and left femoral artery with antegrade perfusion catheter. Febrile overnight and restarted on a ntibiotics. Shivering with restarting of arctic sun. Dilaudid working for this better than propofol. Plan: - increase dilaudid has been more effective for shivering - out 72 hours and so will stop targeted temperature management - Turn down ECMO to 2L to assess for ability to decannulate - Lasix 40mg now - Wean propofol since no longer needing targeted temperature management - Leave on PS 5/5 today but if worsens would place back on Vt of 6cc/kg (420ml) Dispo: CVICU Hospital Problems Priority POA Cardiovascular Hypertension Yes Cardiogenic shock (HCC) Yes STEMI (ST elevation myocardial infarction) (HCC) Yes Coronary artery disease Yes Ventricular fibrillation (HCC) No Respiratory/Chest Acute respiratory failure with hypoxia and hypercapnia (HCC) Unknown Genitourinary Acute kidney injury (HCC) Unknown Digestive Tongue laceration Yes Hematologic Postoperative anemia due to acute blood loss Unknown Endocrine/Metabolic Hypercholesterolemia Yes Lactic acid acidosis Unknown Stress hyperglycemia Unknown Other Tobacco use Yes On mechanically assisted ventilation (HCC) Unknown At risk for electrolyte imbalance Unknown Opacity of lung on imaging study Unknown Abnormal CK Unknown Service Cardiology [1024] Admitting provider and ICU treatment team members Provider Role Specialty Pager Mellisa Haji MD Admitting Provider Cardiology 28081 Code Status Code Status Full Code Quality section A-Line necessity reviewed: Jpgw-hb-[id number] blood pressure monitoring CVC necessity reviewed: Medication requires central access Reardon necessity reviewed: Hourly/Accurate measurement of urinary output for clinical manage ment of critically ill patients I have spent a total of 40 minutes in the direct care and management of this patient indepe ndent of any time spent teaching or performing any separately billable procedures. I reviewe d the documented findings, all data and the recent imaging available. I saw and evaluated t vikash patient at the bedside together with Dr. Alvarado.Please see their note for details. I agre e with the assessment and plan as described in the resident's note with the following except ions/additions as noted. Date of Service: 03/18/2017 Author:Anurag Ashby MD [address] [id number] signed by Anurag Ashby MD at 03/18/2017 11:59 AM Lee Prince MD - 03/18/2017 11:37 AM PDTFormatting of this note might be different from nissa suh original. . Extracorporeal Life Support Service Daily Progress Note Pager #[phone] Type: Veno-Arterial (CPT 75658 or [address]) Diagnosis:Cardiogenic shock Dressing changed: no Dressing Changed Cannula position checked: Cannula Position Checked Anticoagulation held (within past 24 hours?): no Anticoagulation Held Packed cell transfusion: Packed Cell Transfusion Recirculation / wean attempt: no Recirculation / Wean Attempt Cannulation Number of cannulas: 2 Cannula #1 Flow type (relative to Patient): Venous inflow Insertion side: Left Insertion site: Femoral vein Catheter Type: Single lumen venous Size: 25 fr Length: 55 cm Cannula #2 Flow type (relative to Patient): Arterial inflow Insertion side: Left Insertion site: Femoral artery Type: Single lumen arterial Size:19 fr Length:23 cm Distal perfusion catheter used: Yes ECMO Settings Pump speed: 2845 RPM Blood flow: 3.05 L/min Oxygenator FiO2: 100 % Oxygen sweep gas: 3 L/min Ventilator Settings Ventilator mode: VC/AC Tidal volume: 6 ml/kg FiO2: 50 % PEEP: 5 cmH2O Blood Gas PH: 7.42 /PaO2: 88/ PCO2: 39/ HCO3: 25/ BE: 1.4 Anticoagulation (see NOV) Heparin Assessment: 1. Day 4 VA ECMO in 61 y/o M STEMI patient with LM dissection and stent a/w severe cardiog enic shock continuing to slowly improve on heparin and antiplatelet function drugs. Estimat ed EF 20-25% Pulmonary function improving 2. Transfused overnite 2 units 3. Off pressors although suggestions restarting low dose epi under consideration 4.. Pt appears to have some degree of Pulm edema 5, CK elevated and pulse checked with flow noted in PT by doppler single phase tone. Comp artments soft Plan Cont ECMO at reduced flow/RPM as a start to wean and follow course today. Lasix for P edema Follow gases Monitor CK but no evidence to support compartment syndrome and wean from ECMO and remove ca th as soon as safe from cardiac standpoint. Lee Amos MD Susan Fernandez MD - 03/17/2017 10:48 PM PDTFormatting of this note might be different from the origin al. . Extracorporeal Life Support Service Daily Progress Note Pager #[phone] Type: Veno-Arterial (CPT 60961 or [address]) Date of insertion: 03/15/2017 Diagnosis:Cardiogenic shock Dressing changed: no Dressing Changed Cannula position checked: Cannula Position Checked Anticoagulation held (within past 24 hours?): no Anticoagulation Held Packed cell transfusion: no Packed Cell Transfusion Recirculation / wean attempt: no Recirculation / Wean Attempt Cannulation Number of cannulas: 2 Cannula #1 Flow type (relative to Patient): Venous inflow Insertion side: Left Insertion site: Femoral vein Catheter Type: Single lumen venous Size: 25 fr Length: 55 cm Cannula #2 Flow type (relative to Patient): Arterial inflow Insertion side: Left Insertion site: Femoral vein Type: Single lumen arterial Size:19 fr Length:23 cm Distal perfusion catheter used: Yes ECMO Settings Pump speed: 3400 RPM Blood flow: 4.23 L/min Oxygenator FiO2: 100 % Oxygen sweep gas: 5 L/min Ventilator Settings Ventilator mode: VC/AC PEEP: 10 cmH2O Blood Gas PH: 7.51 /PaO2: 74/ PCO2: 33/ HCO3: 26/ BE: 2.8 Anticoagulation (see MAR) Heparin Assessment: 1. Day 3 Stable VA ECMO Pt appears to be progressing in Heart function, renal function, an d pulmonary function across the board. Neuro status still indeterminate. 2. Contractility of heart improved 3. Ventilation improving 4 Kidney function improving Plan 1. Cont ECMO at same settings except to turn down to about 2000 rpm to obtain Echocardiogr am looking for improved function to help with plans for weaning 2. Liberalize TV on vent and decrease sedation and wean from prop to versed. Still may ne ed bolus for shivering 3. If cardiac function continues to improve patient may wean from ECMO as early as tomorro w Lee Amos MD Raul Hanson MD - 03/17/2017 9:18 PM PDTFormatting of this note might be different from the [place]. Cardiovascular Intensive Care Unit Attending Progress Note CVICU D2 Assigned #[id number] ICU Admission Reason Most Recent Value ICU Admission reason Cardiogenic Shock filed at 03/15/2017 1531 Hospital admission dx: left anterior descending artery occlusion, needs cabg 2 Days in ICU 2 Days in Hospital Abbreviated HPI / Daily Assessment Ron Mckeon is a 61 year old man with acute cardiogenic shock in the setting of acu te STEMI from thrombosed left main coronary artery. Initially had lesion in proximal LAD and distal LM, but then acutely thrombosed his left main coronary artery. Now s/p S/p ANY X2. IABP place. Arrived in cardiogenic shock urgently placed on ECMO. Medical Decision Making 61 year old male with long tobacco abuse history, presenting with acute RI and STEMI, resu ltant cardiogenic shock refractory to IABP, cannulated for VA ECMO via left femoral vein and left femoral artery with antegrade perfusion catheter. Continues to have tachycardia, but i mproved from last night, likely with lower dose of epi. Appears to be tolerating ECMO wean w ell, so will continue with inotropic support with milrinone and epi at current doses. Does a ppear to have some oozing and likely hemolysis with elevated plasma free hbg, but hopefully can be decannulated from ECMO tomorrow. For now, will continue to support with milrinone and epi, follow ABG, and plan for decannulation in the OR tomorrow. Plan: - hold on further crystalloid expansion - will transfuse 1 more unit PRBC, but otherwise hold on further transfusion - decrease minute ventilation if possible - pulmonary insufficiency secondary from acute cardiogenic shock: Transition to rest settin gs today and let ECMO do the work. PEEP 10 and goal of 6cc/kg. Pulmonary edema but RUL wors e and so would worry about aspiration as well. Bottom line will treat this as ARDS until pr oven otherwise. Continue vanco/zosyn for another day but can likely stop tomorrow. Dispo: CVICU Hospital Problems Priority POA Cardiovascular Hypertension Yes Cardiogenic shock (HCC) Yes STEMI (ST elevation myocardial infarction) (HCC) Yes Coronary artery disease Yes Ventricular fibrillation (HCC) No Respiratory/Chest Acute respiratory failure with hypoxia and hypercapnia (HCC) Unknown Genitourinary Acute kidney injury (HCC) Unknown Digestive Tongue laceration Yes Hematologic Postoperative anemia due to acute blood loss Unknown Endocrine/Metabolic Hypercholesterolemia Yes Lactic acid acidosis Unknown Stress hyperglycemia Unknown Other Tobacco use Yes On mechanically assisted ventilation (HCC) Unknown At risk for electrolyte imbalance Unknown Opacity of lung on imaging study Unknown Abnormal CK Unknown Service Cardiology [1024] Admitting provider and ICU treatment team members Provider Role Specialty Pager Mellisa Haji MD Admitting Provider Cardiology 57373 Quality section A-Line necessity reviewed: Suct-fc-rkqj blood pressure monitoring CVC necessity reviewed: Rapid transfusion risk (large bore introducer only), Hemodynamic mo nitoring and Medication requires central access Reardon necessity reviewed: Hourly/Accurate measurement of urinary output for clinical manage ment of critically ill patients I have spent a total of 35 minutes in the direct care and management of this patient indepe ndent of any time spent teaching or performing any separately billable procedures. I reviewe d the documented findings, all data and the recent imaging available. Greater than 50% of th is time was spent on counseling and coordination of care. Date of Service: 03/17/2017 Author:Raul Wei MD [address] [address] [place] [id number] signed by Raul Wei MD at 03/17/2017 9:20 PM PD Anurag Kaba MD - 03/17/2017 1:58 PM PDTFormatting of this note might be different fro m the original. Cardiovascular Intensive Care Unit Attending Progress Note CVICU D2 Assigned #[id number] ICU Admission Reason Most Recent Value ICU Admission reason Cardiogenic Shock filed at 03/15/2017 1531 Hospital admission dx: left anterior descending artery occlusion, needs cabg 2 Days in ICU 2 Days in Hospital Abbreviated HPI / Daily Assessment Ron Mckeon is a 61 year old man with acute cardiogenic shock in the setting of acu te STEMI from thrombosed left main coronary artery. Initially had lesion in proximal LAD and distal LM, but then acutely thrombosed his left main coronary artery. Now s/p S/p ANY X2. IABP place. Arrived in cardiogenic shock urgently placed on ECMO. Medical Decision Making 61 year old male with long tobacco abuse history, presenting with acute RI and STEMI, resu ltant cardiogenic shock refractory to IABP, cannulated for VA ECMO via left femoral vein and left femoral artery with antegrade perfusion catheter. Plan: - Chatter in line. Suspect that he will need a little more volume today. Will get TTE tod ay to assess function. - pulmonary insufficiency secondary from acute cardiogenic shock: FiO2 increased overnight as the mixing point is likely changed given cardiac improvement. Will continue to treat as ARDS. - Sedation - will continue fentanyl for shivering. Wean as tolerated. - acute kidney injury: making urine which is good; Cr improving. Encouraging that his kidn eys have done so well. - Neuro - Targeted temperature management. Goal RAAS of 0-1 but this may be limited by norman vering. - ID - stop antibiotics as no evidence for infection. Dispo: CVICU Hospital Problems Priority POA Cardiovascular Hypertension Yes Cardiogenic shock (HCC) Yes STEMI (ST elevation myocardial infarction) (HCC) Yes Coronary artery disease Yes Ventricular fibrillation (HCC) No Respiratory/Chest Acute respiratory failure with hypoxia and hypercapnia (HCC) Unknown Genitourinary Acute kidney injury (HCC) Unknown Digestive Tongue laceration Yes Hematologic Postoperative anemia due to acute blood loss Unknown Endocrine/Metabolic Hypercholesterolemia Yes Lactic acid acidosis Unknown Stress hyperglycemia Unknown Other Tobacco use Yes On mechanically assisted ventilation (HCC) Unknown At risk for electrolyte imbalance Unknown Opacity of lung on imaging study Unknown Service Cardiology [[id number]] Admitting provider and ICU treatment team members Provider Role Specialty Pager Mellisa Haji MD Admitting Provider Cardiology [id number] Quality section A-Line necessity reviewed: [id number]-zb-pxiq blood pressure monitoring CVC necessity reviewed: Medication requires central access Reardon necessity reviewed: Acute urinary retention or obstruction I have spent a total of 55 minutes in the direct care and management of this patient indepe ndent of any time spent teaching or performing any separately billable procedures. I reviewe d the documented findings, all data and the recent imaging available. I saw and evaluated t he patient at the bedside together with Dr. Kee.Please see their note for details. I agree with the assessment and plan as described in the resident's note with the following excepti ons/additions as noted. Date of Service: 03/17/2017 Author:Anurag Ashby MD [address] [id number] signed by Anurag Ashby MD at 03/17/2017 2:00 PM P Mauri Calderon - 03/17/2017 1:01 PM PDTTransthoracic echocardiogram completed. Final r eport to follow. Teddy Ibrahim DO, MS - 03/17/2017 10:00 AM PDT Cardiovascular Intensive Care Unit Team Progress Note CVICU D2 Assigned #[id number] ICU Admission Reason Most Recent Value ICU Admission reason Cardiogenic Shock filed at 03/15/2017 1531 Admission dx: left anterior descending artery occlusion, needs cabg 2 Days in ICU 2 Days in Hospital Abbreviated HPI / Daily Assessment Ron Mckeon is a 61 year old man with acute cardiogenic shock in the setting of acu te STEMI from thrombosed left main coronary artery. Initially had lesion in proximal LAD and distal LM, but then acutely thrombosed his left main coronary artery. Now s/p S/p ANY X2. IABP place. Arrived in cardiogenic shock urgently placed on ECMO. 24 Hour events 03/17: 500ml for pump chatter FI02 increased for left radial pao2 of 40s, improve cardiac function Became tachycardic to 150s with anemia of uncertain source Sweep decreased for co2 30 Left toe less dusky Followed commands Active Diagnosis with Assessment & Plan Priority Class POA Cardiovascular Hypertension Yes Cardiogenic shock (HCC) Yes Current Assessment & Plan S/p IABP and ECMO placement 03/15 IABP and R fem venous sheath dc'd 03/16 PM Epinephrine transitioned to Milrinone 0.125 for hypertension, then back to epi 2/2 hypotens ion ecmo flow decreased to 3lpm to reduce afterload Discussed possible removal tomorrow (hal) or (obdulio) pm STEMI (ST elevation myocardial infarction) (HCC) Yes Overview Xience Alpine 3.0 mm X 23 mm, Xience Alpine 2.5 mm X 18 mm Current Assessment & Plan Initially had lesion in proximal LAD and distal LM, but then acutely thrombosed/dissected his left main coronary artery. S/p ANY X2. Plavix loaded at the outside hospital and transp orted on ticagrelor and bivalirudin. Troponin peaked at 576 on 03/15. 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 Was shocked 17 times Targeted temperature management stopped today when he followed commands Started apap for temp control Respiratory/Chest Acute respiratory failure with hypoxia and hypercapnia (HCC) Unknown Current Assessment & Plan Much dyssynchrony with a variety of settings, currently looks comfortable with vol SIMV Left radial paO2 40s overnight, FIo2 increased to 50% on vent VA ECMO PRN ABGs Tube feeds started today Sedation package changed to propofol gtt and prn po oxy/iv HM Genitourinary Acute kidney injury (HCC) Unknown Current Assessment & Plan Cr stable at 1.3 UOP reasonable Holding nephrotoxic agents as able MAP>65 Digestive Tongue laceration Yes Current Assessment & Plan Right posterior tongue was lacerated during the difficult intubation Packed with combat gauze on 03/15/17 Monitor closely If blood in gastric suction consider this Hematologic Postoperative anemia due to acute blood loss Unknown Current Assessment & Plan Anemic and tachycardic to 150s today, slow decline since admit, likely multifactorial: -Belly and groins scanned, no bleeding but infrarenal AAA noted (3.9cm) -Plasma free hgb 130 -multiple blood draws -small blood in ogt, IV PPI started CBC bid Transfused 1u today with improved HR from 140s to 120s Heparin decreased in range to vad protocol given above Endocrine/Metabolic Hypercholesterolemia Yes Lactic acid acidosis Unknown Current Assessment & Plan Improved, not following lactate Stress hyperglycemia Unknown Current Assessment & Plan Endotool for now Other Tobacco use Yes On mechanically assisted ventilation (HCC) Unknown Current Assessment & Plan Mechanical ventilation as hemodynamics stabilize Propofol for sedation, failed trial of precedex today Soft restraints until extubated Pulmonary Toilet, added metanebs and albuterol today for thick secretions Titrate O2 for sats > 92% At risk for electrolyte imbalance Unknown Current Assessment & Plan Renal function set and magnesium daily ICU lytes protocol begun 7/10 PM as EGFR came below 60 K > 4.5, Mag > 2.5 Opacity of lung on imaging study Unknown Current Assessment & Plan Greatest in RUL. Asp pna vs pulmonary edema. 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 -vanc zosyn stopped today Abnormal CK Unknown Current Assessment & Plan 10,000 today, repeat 9pm Unclear if related to STEMI vs left foot Physical Exam vitals and nursing note reviewed. Constitutional: He appears well-developed and well-nourished HENT: Some crusted blood around ETT 8.0. No active hemorrhage. OGT to suction draining mini mal clear yellow fluid Neck: JVD not present no tracheal deviation present Cardiovascular: No heart tones audible. PTs and radials dopplerable bilaterally with monoph asic signals. Extremities cool though not cold. No mottling. Sinus tach on telemetry. ECMO i n place at L fem. R radial A line. R IJ introducer and swan. No induration or fluctuance at line sites. Pulmonary: Patient is intubated Coarse bilaterally Abdominal: Abdomen is soft. He exhibits distention. Musculoskeletal: SCDS and rooke boots bilaterally. No pretibial edema. Neurological: RASS 0, intermittent agtitaion, follows commands Skin: Skin is warm and dry. Service Cardiology [[id number]] Admitting provider and ICU treatment team members Provider Role Specialty Pager Mellisa Haji MD Admitting Provider Cardiology [id number] This patient does not have an Advanced Care Note for this Admission. Please use the Goal of care section of your ICU navigator to document the advanced care discussion. Quality section A-Line necessity reviewed: Kmyr-oj-cefr blood pressure monitoring CVC necessity reviewed: Hemodynamic monitoring Reardon necessity reviewed: Hourly/Accurate measurement of urinary output for clinical manage ment of critically ill patients FAST HUG Feeding: Tube Feeds Analgesia: apap, oxy, hm Sedation: propofol Thromboprophylaxis: Heparin infusion Head of Bed: Head of Bed Flat Ulcer Prophylaxis: Pantoprazole Glycemic Control: insulin infusion Created by Teddy Kee Do, MS [facility] DEPARTMENT: [facility] ICU CARDIAC Place of Service:- Inpatient CSN: [id number] Suggested Modifier: GC - Resident Involved Suggested CPT: TO PHOTOENGRAVER APPRENTICE Author:Teddy Kee Do, MS [address] [id number] signed by Teddy Kee DO, MS at 03/17/2017 6:35 PM Raul Hanson MD - 03/16/2017 7:38 PM PDT Cardiovascular Intensive Care Unit Attending Progress Note CVICU D2 Assigned #[id number] ICU Admission Reason Most Recent Value ICU Admission reason Cardiogenic Shock filed at 03/15/2017 1531 Hospital admission dx: left anterior descending artery occlusion, needs cabg 1 Days in ICU 1 Days in Hospital Abbreviated HPI / Daily Assessment Ron Mckeon is a 61 year old man with acute cardiogenic shock in the setting of acu te STEMI from thrombosed left main coronary artery. Initially had lesion in proximal LAD and distal LM, but then acutely thrombosed his left main coronary artery. Now s/p S/p ANY X2. IABP place. Arrived in cardiogenic shock urgently placed on ECMO. Medical Decision Making 61 year old male with long tobacco abuse history, presenting with acute RI and STEMI, resu ltant cardiogenic shock refractory to IABP, cannulated for VA ECMO via left femoral vein and left femoral artery with antegrade perfusion catheter. Appears to have lower filling pressu res today, and in the setting of removal of the IABP, will continue to monitor hct as a blee d could the cause of her increased heart rate and lower filling pressures. I suspect that he is in the 20% of patients with CS after AMI with SIRS and that his vasodilation will necess itate us volume expanding him slightly, which will just need to be diuresed later, but do no t want him with so high a heart rate. He is ejecting well, but his mixing cloud is close to his coronaries as his PaO2 on his patient gas is elevated. Also, left foot slightly dusky, t hen with adjustment of the reperfusion ECMO return (changed from right angle on the three wa y to the direct linear allignment), foot has improved. Will continue to rest heart with ECMO , and no signs of cardiac stasis, so no need for LV vent which is why the IABP was removed t [place]. Plan: - IABP now out, filling pressure still low, so will mildly volume expand as above - pulmonary insufficiency secondary from acute cardiogenic shock: Transition to rest settin gs today and let ECMO do the work. PEEP 10 and goal of 6cc/kg. Pulmonary edema but RUL wors e and so would worry about aspiration as well. Bottom line will treat this as ARDS until pr oven otherwise. Continue vanco/zosyn for another day but can likely stop tomorrow. - lactic acidosis: Likely from epi at this point since he is on ECMO. No treatment. - acute kidney injury: making urine which is good; will continue to monitor his renal funct ion and urine output - Neuro - Targeted temperature management. Goal RAAS of 0-1. Okay to start to warm up to 3 7 tonight. Dispo: CVICU Hospital Problems Priority POA Cardiovascular Hypertension Yes Cardiogenic shock (HCC) Yes STEMI (ST elevation myocardial infarction) (HCC) Yes Coronary artery disease Yes Ventricular fibrillation (HCC) No Respiratory/Chest Acute respiratory failure with hypoxia and hypercapnia (HCC) Unknown Genitourinary Acute kidney injury (HCC) Unknown Digestive Tongue laceration Yes Hematologic Postoperative anemia due to acute blood loss Unknown Endocrine/Metabolic Hypercholesterolemia Yes Lactic acid acidosis Unknown Stress hyperglycemia Unknown Other Tobacco use Yes On mechanically assisted ventilation (HCC) Unknown At risk for electrolyte imbalance Unknown Opacity of lung on imaging study Unknown Service Cardiology [[id number]] Admitting provider and ICU treatment team members Provider Role Specialty Pager Mellisa Haji MD Admitting Provider Cardiology [id number] Quality section A-Line necessity reviewed: Gkhn-dq-avho blood pressure monitoring CVC necessity reviewed: Rapid transfusion risk (large bore introducer only) and Hemodynamic monitoring Reardon necessity reviewed: Hourly/Accurate measurement of urinary output for clinical manage ment of critically ill patients I have spent a total of 75 minutes in the direct care and management of this patient indepe ndent of any time spent teaching or performing any separately billable procedures. I reviewe d the documented findings, all data and the recent imaging available. Greater than 50% of th is time was spent on counseling and coordination of care. Date of Service: 03/16/2017 Author:Raul Wei MD [address] [id number] signed by Raul Wei MD at 03/17/2017 11:03 AM PD Jose Ramon Rodriguez MD - 03/16/2017 5:15 PM PDT Cardiovascular Intensive Care Unit Team Progress Note CVICU D2 Assigned #[id number] ICU Admission Reason Most Recent Value ICU Admission reason Cardiogenic Shock filed at 03/15/2017 1531 Admission dx: left anterior descending artery occlusion, needs cabg 1 Days in ICU 1 Days in Hospital Abbreviated HPI / Daily Assessment Ron Mckeon is a 61 year old man with acute cardiogenic shock in the setting of acu te STEMI from thrombosed left main coronary artery. Initially had lesion in proximal LAD and distal LM, but then acutely thrombosed his left main coronary artery. Now s/p S/p ANY X2. IABP place. Arrived in cardiogenic shock urgently placed on ECMO. 24 Hour events 03/16: Transferred Started on ECMO bedside in CVICU Dopamine weaned to off Epi weaned to 0.05 Some vent dyssynchrony overnight - improved by increased sedation IABP still in place Renal and liver function tests improving Active Diagnosis with Assessment & Plan Priority Class POA Cardiovascular Hypertension Yes Cardiogenic shock (HCC) Yes Current Assessment & Plan S/p IABP and ECMO placement 03/15 Epinephrine now 0.04 Dopamine 10 on arrival, now weaned to 0 NE weaned to off 1L given since ECMO cannulation for chatter in Venous catheter IABP and R fem venous sheath dc'd 03/16 PM STEMI (ST elevation myocardial infarction) (HCC) Yes Overview Xience Alpine 3.0 mm X 23 mm, Xience Alpine 2.5 mm X 18 mm Current Assessment & Plan Initially had lesion in proximal LAD and distal LM, but then acutely thrombosed/dissected his left main coronary artery. S/p ANY X2. Plavix loaded at the outside hospital and transp orted on ticagrelor and bivalirudin. Troponin peaked at 576 on 03/15. 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 Was shocked 17 times Now on targeted temperature management as he was intubated on arrival and we have not been able to check his mental status due to ongoing critical illness -arrest was 7 AM -TTM begun 03/15 PM, now through 24 hours of 36.0C -needs 48 hours normothermia through 03/18 PM Respiratory/Chest Acute respiratory failure with hypoxia and hypercapnia (HCC) Unknown Current Assessment & Plan Currently improved Lung protective ventilation VA ECMO PRN ABGs Genitourinary Acute kidney injury (HCC) Unknown Current Assessment & Plan Cr trending down gently UOP reasonable Holding nephrotoxic agents as able MAP>65 Digestive Tongue laceration Yes Current Assessment & Plan Right posterior tongue was lacerated during the difficult intubation Packed with combat gauze on 03/15/17 Monitor closely If blood in gastric suction consider this Hematologic Postoperative anemia due to acute blood loss Unknown Current Assessment & Plan Anemia following procedures Monitor for continued sources of blood loss CBC daily Transfusion threshold 21 or if clinically unstable Endocrine/Metabolic Hypercholesterolemia Yes Lactic acid acidosis Unknown Current Assessment & Plan Stably in 6-7 range. Hypoperfusion vs catecholamine-induced. No evidence for limb ischemi a. Lactate q6h Stress hyperglycemia Unknown Current Assessment & Plan Endotool for now Other Tobacco use Yes On mechanically assisted ventilation (HCC) Unknown Current Assessment & Plan Mechanical ventilation as hemodynamics stabilize 6cc/kg, PEEP 10 Wean to pressure support as tolerated Propofol for sedation until stable for extubation Once tolerating PS start SBT Soft restraints until extubated Pulmonary Toilet Titrate O2 for sats > 92% At risk for electrolyte imbalance Unknown Current Assessment & Plan Renal function set and magnesium daily ICU lytes protocol begun 7 PM as EGFR came below 60 K > 4.5, Mag > 2.5 Opacity of lung on imaging study Unknown Current Assessment & Plan Greatest in RUL. Asp pna vs pulmonary edema. 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 -bridget retana for now Physical Exam vitals and nursing note reviewed. Constitutional: He appears well-developed and well-nourished HENT: Some crusted blood around ETT 8.0. No active hemorrhage. OGT to suction draining mini mal clear yellow fluid Neck: JVD not present no tracheal deviation present Cardiovascular: No heart tones audible. PTs and radials dopplerable bilaterally with monoph asic signals. Extremities cool though not cold. No mottling. Sinus tach on telemetry. ECMO i n place at L fem. R radial A line. R IJ introducer and swan. No induration or fluctuance at line sites. Pulmonary: Patient is intubated Coarse bilaterally Abdominal: Abdomen is soft. He exhibits distention. Musculoskeletal: SCDS and rooke boots bilaterally. No pretibial edema. Neurological: RASS -4. Doll's eyes present. Skin: Skin is dry. Service Cardiology [[id number]] Admitting provider and ICU treatment team members Provider Role Specialty Pager Mellisa Haji MD Admitting Provider Cardiology [id number] Quality section A-Line necessity reviewed: Nuxe-qb-bxyc blood pressure monitoring CVC necessity reviewed: Hemodynamic monitoring Reardon necessity reviewed: Hourly/Accurate measurement of urinary output for clinical manage ment of critically ill patients FAST HUG Feeding: NPO Analgesia: fentanyl gtt and bolus prn Sedation: propofol gtt and bolus prn Thromboprophylaxis: Heparin infusion Head of Bed: Head of Bed >30 degrees Ulcer Prophylaxis: Famotidine Glycemic Control: insulin infusion Created by Jose Ramon Alvarado MD Author:Jose Ramon Alvarado MD [address] [address] [place] [id number] signed by Jose Ramon Alvarado MD at 03/16/2017 5:21 PM Teddy Ibrahim DO, MS - 03/16/2017 2:46 PM PDTDate:03/16/2017 Author: Teddy Kee Do MS Procedure: Removal of Intra Aortic Balloon Pump The patient was placed in a supine position. A doppler was placed over the PT to ausculta te arterial flow in the right lower extremity, during and after removal of IABP. The suture s were removed from the catheter and sheath. The IABP was turned off and the balloon line wa s cut and then aspirated with a 60 cc syringe to assure complete deflation of the balloon. Next the sheath and device were removed easily from the groin. After 3 pulsatile beats from the cannulation site, direct pressure was applied. Occlusive pressure was held x 5 min fol lowed. Continuous arterial doppler was performed on the left PT while direct pressure was he ld for a total of 30 minutes. This assured me that there was never complete occlusion of th e vessel and that the extremity perfusion was appropriately maintained while achieving hemos tasis. The patient tolerated the procedure well. Right femoral sheath removed following th is. Followed by bedrest for 6 hours and neurovascular checks. Performed by: Teddy Kee Do, MS [place], Anurag Soni MD - 03/16/2017 1:22 PM PDT Cardiovascular Intensive Care Unit Attending Progress Note CVICU D2 Assigned #[id number] ICU Admission Reason Most Recent Value ICU Admission reason Cardiogenic Shock filed at 03/15/2017 1531 Hospital admission dx: left anterior descending artery occlusion, needs cabg 1 Days in ICU 1 Days in Hospital Abbreviated HPI / Daily Assessment Ron Mckeon is a 61 year old man with acute cardiogenic shock in the setting of acu te STEMI from thrombosed left main coronary artery. Initially had lesion in proximal LAD and distal LM, but then acutely thrombosed his left main coronary artery. Now s/p S/p ANY X2. IABP place. Arrived in cardiogenic shock urgently placed on ECMO. Medical Decision Making ICU Day #2 after being transferred from [place] in [place] in acute cardiogenic archie ck following an anterior STEMI. Upon arrival to [facility], decision was made to go emergently on to VA ECMO. He was cannulated via the L femoral artery and vein. Plan: - acute cardiogenic shock s/p ECMO support: Continue VA ECMO. Will remove IABP but will ne ed to coordinate the anticoagulation for ECMO with this. - pulmonary insufficiency secondary from acute cardiogenic shock: Transition to rest settin gs today and let ECMO do the work. PEEP 10 and goal of 6cc/kg. Pulmonary edema but RUL wors e and so would worry about aspiration as well. Bottom line will treat this as ARDS until pr oven otherwise. Continue vanco/zosyn for another day but can likely stop tomorrow. - lactic acidosis: Likely from epi at this point since he is on ECMO. No treatment. - acute kidney injury: making urine which is good; will continue to monitor her renal funct ion and urine output - Neuro - Targeted temperature management. Goal RAAS of 0-1. If he doesn't tolerate this will evaluate further. Dispo: - remains in ICU Hospital Problems Priority POA Cardiovascular Hypertension Yes Cardiogenic shock (HCC) Yes STEMI (ST elevation myocardial infarction) (HCC) Yes Coronary artery disease Yes Ventricular fibrillation (HCC) No Respiratory/Chest Acute respiratory failure with hypoxia and hypercapnia (HCC) Unknown Genitourinary Acute kidney injury (HCC) Unknown Digestive Tongue laceration Yes Hematologic Postoperative anemia due to acute blood loss Unknown Endocrine/Metabolic Hypercholesterolemia Yes Lactic acid acidosis Unknown Other Tobacco use Yes On mechanically assisted ventilation (HCC) Unknown At risk for electrolyte imbalance Unknown Service Cardiology [[id number]] Admitting provider and ICU treatment team members Provider Role Specialty Pager Mellisa Haji MD Admitting Provider Cardiology [id number] Quality section A-Line necessity reviewed: Lsos-eo-fpon blood pressure monitoring CVC necessity reviewed: Hemodynamic monitoring and Medication requires central access Reardon necessity reviewed: Hourly/Accurate measurement of urinary output for clinical manage ment of critically ill patients I have spent a total of 50 minutes in the direct care and management of this patient indepe ndent of any time spent teaching or performing any separately billable procedures. I reviewe d the documented findings, all data and the recent imaging available. Greater than 50% of th is time was spent on counseling and coordination of care. I saw and evaluated the patient at the bedside together with Dr. Alvarado.Please see their note for details. I agree with the as sessment and plan as described in the resident's note with the following exceptions/addition s as noted. Date of Service: 03/16/2017 Author:Anurag Ashby MD [address] [id number] signed by Anurag Ashby MD at 03/16/2017 1:23 PM Lee Prince MD - 03/16/2017 9:41 AM PDTFormatting of this note might be different from t vikash original. . Extracorporeal Life Support Service Daily Progress Note Pager #[phone] Type: Veno-Arterial (CPT 11055 [place] [address]) Diagnosis:Cardiogenic shock Dressing changed: no Dressing Changed Cannula position checked: Cannula Position Checked Anticoagulation held (within past 24 hours?): no Anticoagulation Held Packed cell transfusion: no Packed Cell Transfusion Recirculation / wean attempt: no Recirculation / Wean Attempt Cannulation Number of cannulas: 2 Cannula #1 Flow type (relative to Patient): Venous outflow Insertion side: Left Insertion site: Femoral vein Catheter Type: Single lumen venous Size: 25 fr Length: 55 cm Cannula #2 Flow type (relative to Patient): Arterial inflow Insertion side: Left Insertion site: Femoral artery Type: Single lumen arterial Size:19 fr Length:23 cm Distal perfusion catheter used: Yes ECMO Settings Pump speed: 3450 RPM Blood flow: 4.2 L/min Oxygenator FiO2: 100 % Oxygen sweep gas: 5 L/min Ventilator Settings Ventilator mode: VC/AC Tidal volume: 7 ml/kg FiO2: 40 % Peak pressure: 44 cmH2O PEEP: 12 cmH2O Blood Gas PH: 7.26 /PaO2: 200/ PCO2: 40/ HCO3: 18/ BE: -9 Anticoagulation (see MAR) Heparin Assessment: Day 2 stable [facility] ECMO in 61 y/o M s/p LM with dissection and STEMI with prolonged resuscitat ion and now stented on Heparin and antiplatelet therapy. He is on Epi at 0.05 and other pre ssors off. Neuro unknown on targeted Rx of 36 C. No major changes today except to lighten sedation, remove balloon pump and possible change flow if cont to show improvement after balloon pump out. Plan No basic change in ECMO Remove IABP Wean Sedation Lee Amos MD Mirna Horvath PA-C - 03/16/2017 3:42 AM PDT Cardiovascular Intensive Care Unit Clinical Update Note Team: D2 Team Pager: [phone] Attending: Abdulaziz Merrill Name: Ron Mckeon ID: Abbreviated HPI Abbreviated HPI / Daily Assessment Ron Mckeon is a 61 year old man with acute cardiogenic shock in the setting of acu te STEMI from thrombosed left main coronary artery. Initially had lesion in proximal LAD and distal LM, but then acutely thrombosed his left main coronary artery. Now s/p S/p ANY X2. IABP place. Arrived in cardiogenic shock urgently placed on ECMO. Update: Traumatic intubation at OSH with tongue laceration. Combat gauze placed in oral cavity. Remains on ECMO with IABP 1:3 On epinephrine and dopamine. Norepinephrine off. Remains sedated on propofol. Lactate remains elevated. S: Intubated/sedated. O: BP 115/69 | Pulse 96 | Temp 36 C (96.8 F) | RR 20 | Wt 113 kg (249 lb 1.9 oz) | SpO2 10 0% | BMI 36.79 kg/(m^2) Physical Exam Constitutional: He appears well-developed and well-nourished Intubated, sedated HENT: Mouth with gauze around ETT. Eyes: Pupils equal, Neck: RIJ introducer with PA catheter. Cardiovascular: +sluggish ulnar Doppler signal R +Radial Doppler signal L +doppler signal +DP bilatarall R hand with good cap refil digits 1-3. Slightly pale 4-5 fingers. Toes slightly purplish Pulmonary: Coarse bilaterally. ETT with clotted blood Abdominal: Abdomen is soft. Musculoskeletal: R groin with IABP in artery, veinous sheath in place L groin with ECMO cannulas Assessment and Plan: Hospital Problems Priority POA Cardiovascular Hypertension Yes Cardiogenic shock (HCC) Yes STEMI (ST elevation myocardial infarction) (HCC) Yes Coronary artery disease Yes Ventricular fibrillation (HCC) No Respiratory/Chest Acute respiratory failure with hypoxia and hypercapnia (HCC) Unknown Genitourinary Acute kidney injury (HCC) Unknown Digestive Tongue laceration Yes Hematologic Postoperative anemia due to acute blood loss Unknown Endocrine/Metabolic Hypercholesterolemia Yes Lactic acid acidosis Unknown Other Tobacco use Yes On mechanically assisted ventilation (HCC) Unknown At risk for electrolyte imbalance Unknown R radial artery sheath from angio switched to usual arterial line catheter. ETT exchanged to 8.0 tube. CO2 sweep increase to 5 based on ABG. ECMO speed increased to 3450 Continue to monitor lactate Decrease dopamine, attempt to wean off. Troponin peaked to 576 I have spent a total of 35 Minutes independently in the direct care and management of th is patient.Time is independent of any time spent teaching or performing any separately billa ble procedures. I reviewed the documented findings, all data and the recent imaging availabl e. Date of Service: 03/16/2017 Mirna Berumen PA-C [facility] DEPARTMENT: ANE ICU CARDIAC Place of Service:- Inpatient CSN: [id number] Suggested Modifier: None Suggested CPT: TO PHOTOENGRAVER APPRENTICE Mirna Berumen PA-C Everardo Valladares MD - 03/15/2017 9:04 PM PDT Cardiovascular Intensive Care Unit Attending Progress Note CVICU D2 Assigned #[id number] ICU Admission Reason Most Recent Value ICU Admission reason Cardiogenic Shock filed at 03/15/2017 1531 Hospital admission dx: left anterior descending artery occlusion, needs cabg Days in ICU Days in Hospital Medical Decision Making ICU Day #1 after being transferred from [place] in [place] in acute cardiogenic archie ck following an anterior STEMI. Upon arrival to [facility], decision was made to go emergently on to [facility] ECM[facility]. He was cannulated via the L femoral artery and vein. Plan: - acute cardiogenic shock s/p ECMO support: appreciate advanced heart failure and ECMO cons ultation; will maintain on ECMO and IABP for time being and maintain on some amount of intra venous inotropic support to maintain LV venting - pulmonary insufficiency secondary from acute cardiogenic shock: maintain on mechanical ve ntilation and transition to rest settings as able - auto-PEEP: will change out endotracheal tube - lactic acidosis: will continue to monitor now on ECMO - transiently may need fluid - acute kidney injury: making urine which is good; will continue to monitor her renal funct ion and urine output Dispo: - remains critically ill Hospital Problems Priority POA Cardiovascular Hypertension Yes Cardiogenic shock (HCC) Yes STEMI (ST elevation myocardial infarction) (HCC) Yes Coronary artery disease Yes Ventricular fibrillation (HCC) No Respiratory/Chest Acute respiratory failure with hypoxia and hypercapnia (HCC) Unknown Genitourinary Acute kidney injury (HCC) Unknown Digestive Tongue laceration Yes Hematologic Postoperative anemia due to acute blood loss Unknown Endocrine/Metabolic Hypercholesterolemia Yes Lactic acid acidosis Unknown Other Tobacco use Yes On mechanically assisted ventilation (HCC) Unknown At risk for electrolyte imbalance Unknown Service Cardiology [[id number]] Admitting provider and ICU treatment team members Provider Role Specialty Pager Mellisa Haji MD Admitting Provider Cardiology [id number] Quality section A-Line necessity reviewed: [id number] blood pressure monitoring CVC necessity reviewed: Hemodynamic monitoring and Medication requires central access Reardon necessity reviewed: Hourly/Accurate measurement of urinary output for clinical manage ment of critically ill patients I have spent a total of 58 minutes in the direct care and management of this patient indepe ndent of any time spent teaching or performing any separately billable procedures. I reviewe d the documented findings, all data and the recent imaging available. Seen with PA/FIELD SOFTWARE ENGINEER Winston Cole. Please see their note for details. I reviewed the documented findings, all data and the recent imaging available. Date of Service: 03/15/2017 Author:Everardo Cintron MD [address] [id number] signed by Everardo Cintron MD at 03/15/2017 9:[address] - 03/15/2017 2:11 PM PDTTransthoracic echocardiogram completed. Final r eport to follow. oniPatrick genao MD,MPH - 03/15/2017 2:00 PM PDT . Extracorporeal Life Support Service Consult Service Note Pager #[phone] Date: 03/15/17 Author: Patrick Ruiz MD,MPH Consulting Attending: Mellisa Haji MD Reason for Consult: [facility] ECMO Consideration HPI: 61 year old male who presents this afternoon to [facility] in acute cardiogenic shock second maciej to STEMI / thrombosed L main coronary artery. He was transferred from [place]. His symptoms started this morning around 3am and was seen in [place], [place]. He was diagnosed w ith an anterior STEMI and transferred to the blood bank laboratory technician in [place], [place]. He was found to h ave a proximal LAD occlusion (~99%) extending into the bifurcation of the LM and L Circ. Mckeon bsequently he suffered a cardiac arrest requiring 15 defibrilations. An IABP was placed. F ollowing this, a left main and LAD stent was placed although he persisted. He had persisten t cardiogenic shock requiring high dose pressors (epinephrine and dopamine). On arrival to [facility], he was in profound cardiogenic shock and hypoxic. His MAP was in the 40s. He was tach ycardic into the 150s. IABP was increased to 1:2. Past Medical History: Past Medical History: Diagnosis Date Cardiogenic shock ([facility]) 03/15/2017 Coronary artery disease 03/15/2017 Hypercholesterolemia Hypertension STEMI (ST elevation myocardial infarction) ([facility]) 03/15/2017 Tobacco use Past Surgical History: Past Surgical History Procedure Laterality Date Nasal septum surgery Tonsil and adenoidectomy Current Inpatient Medications: Medications Continuous Medication Dose/Rate, Route, Frequency Last Action DOPamine (INOTROPIN) 800 mg/250 mL (3.2 mg/mL) IV infusion (RTU) 6 mcg/kg/min, 12.71 mL/hr , IV, CONTINUOUS Rate/Dose Change: 03/15 2025 EPINEPHrine (ADRENALIN) 5mg/250 mL (0.02 mg/mL) IV infusion (ADC) 0.06 mcg/kg/min, 20.34 m L/hr, IV, CONTINUOUS Rate/Dose Verify: 03/15 2000 fentaNYL (SUBLIMAZE) 2500 mcg/250 mL (10 mcg/mL) IV infusion (RTU) 50 mcg/hr, 5 mL/hr, IV, CONTINUOUS Rate/Dose Verify: 03/15 2000 heparin in D5W 25,000 Units/250 mL (100 Units/mL) IV infusion (RTU) 1,000 Units/hr, 10 mL/ hr, IV, CONTINUOUS Rate/Dose Verify: 03/15 2100 insulin regular in NaCl 0.9% IV infusion (1 unit/mL) 4.2 Units/hr, 4.2 mL/hr, IV, CONTINUO US Rate/Dose Change: 03/15 2018 norepinephrine (LEVOPHED) 8mg/250 mL (0.032 mg/mL) IV infusion (RTU) 0 mcg/kg/min, 0 mL/hr , IV, CONTINUOUS Stopped: 03/15 1845 propofol (DIPRIVAN) injection 40 mcg/kg/min, 27.12 mL/hr, IV, CONTINUOUS New Ba03/15 20 42 Scheduled Medication Dose/Rate, Route, Frequency Last Action artificial tears (dextran 70-hypromellose) (NATURE'S TEARS) 0.1-0.3 % ophthalmic drops 2 d rop 2 drop, Both Eyes, Q4H Given: 03/15 2000 aspirin chewable tablet 81 mg 81 mg, ftub, DAILY Ordered calcium gluconate 2 g in dextrose 5 % IV 2 g, IV, ONCE Ordered chlorhexidine (PERIDEX) mouthwash 15 mL 15 mL, oral, Q6H Given: 03/15 2000 clopidogrel (PLAVIX) tablet 75 mg 75 mg, ftub, DAILY Ordered famotidine (PEPCID) injection 20 mg 20 mg, IV, BID Given: 03/15 2000 norepinehprine IV infusion No Dose/Rate, Ordered piperacillin-tazobactam (ZOSYN) IV 3.375 g 3.375 g, IV, Q8H Ordered polyethylene glycol (MIRALAX) packet 17 g 17 g, ftub, DAILY Ordered potassium chloride IV (CENTRAL LINE) 40 mEq 40 mEq, IV, ONCE New Ba03/15 2023 senna-docusate (SENOKOT S) 8.6-50 mg 2 tablet 2 tablet, ftub, BID Ordered vancomycin (VANCOCIN) IV 1,500 mg 1,500 mg, IV, Q12H Ordered PRN Medication Dose/Rate, Route, Frequency Last Action bisacodyl (DULCOLAX) suppository 10 mg 10 mg, rect, DAILY PRN Ordered dextrose 5%-NaCl 0.45% IV infusion 25 mL/hr, IV, PRN Rate/Dose Verify: 03/15 2000 dextrose 50 % in water IV 15-150 mL 15-150 mL, IV, PRN Ordered fentaNYL (SUBLIMAZE) bolus from continuous infusion 50-100 mcg 50 mcg, IV, Q30MIN PRN Bolu s from Same Ba03/15 1800 glucose chewable tablet 4-40 g 4-40 g, oral, PRN Ordered heparin bolus from continuous infusion 4,500 Units 40 Units/kg, IV, NEEDED (BOLUS) Orde red heparin bolus from continuous infusion 9,050 Units 80 Units/kg, IV, NEEDED (BOLUS) Orde red insulin regular bolus from continuous infusion 1-50 Units 3 Units, IV, NEEDED (BOLUS) B olus from Same Ba/09 180 polyethylene glycol (MIRALAX) packet 34 g 34 g, ftub, TID PRN Ordered propofol (DIPRIVAN) bolus from continuous infusion 10-20 mg 20 mg, IV, Q15MIN PRN Bolus fr om Same Ba/09 1755 white petrolatum-mineral oil-lanolin (LACRILUBE) 83-15 % ophthalmic ointment No Dose/Rate, Both Eyes, Q2H PRN Ordered Allergies: No Known Allergies Focused ROS: Unable to be obtained due to critical illness Physical Exam: Last Vitals: HR 147 RR 26 BP 90/67 MAP 63 SaO2 93% Actual Weight (kG): Weight: 113 kg (249 lb 1.9 oz) (03/15/17 1400) Neuro: Intubated and sedated HEENT: Normocephalic. Copious oozing blood from oropharynx. On DL identified to have a to ngue laceration. Respiratory: See ventilator settings Cardiovascular: Cardiogenic shock; 3 pressors required + IABP 1:2 Gastrointestinal: Obese, hypoactive BS Genitourinary: Reardon in place Radiology: CXR: HISTORY: IABP. FINDINGS: Endotracheal tube is seen with its tip 5.7 cm above the jefferson. Feeding tube is in place wi th its tip not well-visualized, but probably within the gastric antrum. IABP is observed wit h the radiopaque tip somewhat more centrally positioned than normal. The tip lies within the descending thoracic aorta 4.2 cm on the top of the aortic arch. There is no pneumothorax or pleural effusion. Bibasilar subsegmental atelectasis is seen. Vascular indistinctness and g roundglass and consolidative opacities are observed within the right lung with some sparing of the right lung base and also to a less degree in the left upper lobe. The cardiac and med iastinal borders are within normal limits. No acute osseous abnormality is seen. TTE/MARKY: EF 20% Ventilator Data: VC Rate 24; Tv 480; PEEP 14, Pplat 26; FiO2 100% LABS WBC 29, Hb 16, Hct 44.7, Plt 396 ABG 7.1/68/58/20.8/-9 Troponin 576 Lactate 5.7 AST 959, ALT 158, AlkPhos 86; TBili 0.4 Oxygenation index FiO2: 100 MAP: 19 ECMO contraindications ([facility]) Patient does not contraindicate for: unable to recieve anticoagulation, unrecoverable cardi ogenic shock, chronic organ dysfunction (ESLD, ESRD), terminal malignancy, aortic dissection , severe periperal vascular disease, severe aortic insufficiency and prolonged CPR Assessment: 61yo M in refractory cardiogenic shock after coronary artery dissection s/p acu te STEMI. Recommendations: After conferring with Dr. Powell (CT Surgery), Jeet Ugalde (CVICU), and Neena Ramírez (Heart Failure), we decided that his best opportunity for MCS was VA-ECMO with the plan for cardiac recovery from cardiogenic shock. Patrick Ruiz MD, MPH knuckle strap sewer Trauma, Critical Care & Acute Care Surgery [facility] onies, Patrick Sexton MD,MPH - 03/15/2017 1:48 PM PDT . . Extracorporeal Life Support Service Initiation Note Pager #[phone] Date of service: 03/15/2017 Author: Patrick Ruiz Md,Mph ECMO Type: Veno-Arterial ([place] [address] [place] [address]) Oxygenation index FiO2: 100 MAP: 22 Diagnosis:Cardiogenic shock Pre-Cannulation information pH: 7.1 / PO2: 58 / PCO2: 68 / Bicarb: 21 / BE: -8.9 Ventilator mode: VC/AC Tidal volume: 8 FiO2: 100 MAP: 22 Plateau pressure: 26 Peak pressure: 68 Peep: 14 Pre-ECMO maneuvers: Neuromuscular blockade Cannulation Cannula #1 Flow type (relative to patient): Venous outflow Insertion side: Left Insertion Site: Femoral vein Type: Single lumen venous Size: 25 fr Length: 55 cm Second cannulation Flow type: Arterial inflow Insertion side: Left Insertion site: Femoral artery Catheter: Type: Single lumen arterial Size:19 fr Length:15 cm Distal perfusion catheter used: Yes Central cannulation: No ECMO settings Pump speed: 4.5 RPM Blood flow: 3500 L/min Oxygenator FiO2: 100 % Oxygen sweep gas: 2.5 L/min Post cannulation ventilator settings Ventilator mode: VC/AC Tidal volume: 8 ml/kg FiO2: 100 % PEEP: 14 cmH2O Post cannulation blood gas Patient blood gas PH: 7.18 / PO2: 375 / PCO2: 50 / Bicarb: 18.5 / BE: -9 Pre-oxygenator blood gas (VBG) PH: 7.13 / PO2: 49 / PCO2: 63 / Bicarb: 21 / BE: -8 Post-oxygenator blood gas (ABG) PH: 7.18 / PO2: 455 / PCO2: 51 / BE: 18 Anticoagulation Anticoagulant: Heparin Assessment: 61 year old male who presents this afternoon to [facility] in acute cardiogenic shock secondary to STEMI / thrombosed L main coronary artery. S/P Stent x 2 (prox LAD and L Main ). MAP 40s, pH 7.1. High dose pressors (dopamine 10 mcg/kg/min; Epinephrine 0.08 mcg/kg// min; Norepinephrine 0.04 mcg/kg/min). IABP 1:2. Remains in refractory cardiogenic shock. Plan: VA-ECMO CANNULATION 1. Percutaneous cannulation performed with 7Fr antegrade catheter. The L foot is warm/per fused. 2. EBF 4.7 L/Min. RPM 3750; T 37C. SVO2 68% (approximate target). OSG 2.5 L,/min 3. Based on first ABG, increase OSG to 3.5 L/Min. EBF to 4-4.5 L/min 4. Reduce Ventilator slowly to rest settings (FiO2 1.0 to ~ 0.4) as long as O2 delivery ap propriate via circuit. 5. Patient was loaded with directo thrombin inhibitors at OSH. Would start anticoagulatio n at 1000 U/Hr. Then target 0.3-0.5 Heparin assay level. 6. Decrease Norepi and dopamine as tolerated. Continue Epi infusion. Continue IABP but at 1:3. 7. Some moderate chugging at initiation with briefly elevated Pven. Given fluid challenge (500ml x2) and decreased RPM slightly with improvement. May require some additional vol re suscitation throughout today. Continue to monitor urinary output. 8. Tongue laceration identified and packed with quick clot bandage. Will remove tomorrow. Patient's spouse updated at bedside. Patrick Ruiz MD,MPH P M PDTdocumented in this encounter Plan of Treatment + + +--------+ + + | Name | Type | Priori | Associated Diagnoses | Date/Time | | | | ty | | | + + +--------+ + + | TRANSFUSE RED CELLS, | Nursing | Routin | | 03/22/2017 5:31 AM | | LEUKOREDUCED | Transfuse | e | | PDT | + + +--------+ + + | TRANSFUSE RED CELLS, | Nursing | Routin | | 03/22/2017 5:31 AM | | LEUKOREDUCED | Transfuse | e | | PDT | + + +--------+ + + + +------+--------+ + + | Name | Type | Priori | Associated Diagnoses | Order Schedule | | | | ty | | | + +------+--------+ + + | 12 LEAD ECG | ECG | Routin | | One Time for 1 | | | | e | | Occurrences starting | | | | | | 03/30/2017 until | | | | | | 03/30/2017 | + +------+--------+ + + documented as of this encounter Procedures + +--------+ + + + | Procedure Name | Priori | Date/Time | Associated Diagnosis | Comments | | | ty | | | | + +--------+ + + + | CARDIAC CATH | | 04/02/2017 | | Results for this | | | | 11:30 AM | | procedure are in the | | | | PDT | | results section. | + +--------+ + + + | CAPILLARY BLOOD | Routin | 04/02/2017 | ST elevation | Results for this | | GLUCOSE (NO CHG), | e | 9:15 AM | myocardial | procedure are in the | | POC | | PDT | infarction involving | results section. | | | | | left main coronary | | | | | | artery (HCC) | | + +--------+ + + + | RBC MORPHOLOGY | Routin | 04/02/2017 | | Results for this | | | e | 5:04 AM | | procedure are in the | | | | PDT | | results section. | + +--------+ + + + | CBC AND AUTO DIFF | Urgent | 04/02/2017 | | Results for this | | | | 5:04 AM | | procedure are in the | | | | PDT | | results section. | + +--------+ + + + | MANUAL DIFFERENTIAL | Routin | 04/02/2017 | | Results for this | | | e | 5:04 AM | | procedure are in the | | | | PDT | | results section. | + +--------+ + + + | INR | Urgent | 04/02/2017 | | Results for this | | | | 5:04 AM | | procedure are in the | | | | PDT | | results section. | + +--------+ + + + | CBC, WITH | Urgent | 04/02/2017 | | Results for this | | DIFFERENTIAL | | 5:04 AM | | procedure are in the | | | | PDT | | results section. | + +--------+ + + + | BASIC METABOLIC SET | Routin | 04/02/2017 | | Results for this | | (NA, K, CL, TCO2, | e | 5:04 AM | | procedure are in the | | BUN, CR, GLU, CA) | | PDT | | results section. | + +--------+ + + + | MAGNESIUM, PLASMA | Urgent | 04/02/2017 | | Results for this | | | | 5:04 AM | | procedure are in the | | | | PDT | | results section. | + +--------+ + + + | CARDIOLOGY | | 04/02/2017 | | Results for this | | | | 12:00 AM | | procedure are in the | | | | PDT | | results section. | + +--------+ + + + | CAPILLARY BLOOD | Routin | 04/01/2017 | ST elevation | Results for this | | GLUCOSE (NO CHG), | e | 8:58 PM | myocardial | procedure are in the | | POC | | PDT | infarction involving | results section. | | | | | left main coronary | | | | | | artery (HCC) | | + +--------+ + + + | CAPILLARY BLOOD | Routin | 04/01/2017 | ST elevation | Results for this | | GLUCOSE (NO CHG), | e | 4:21 PM | myocardial | procedure are in the | | POC | | PDT | infarction involving | results section. | | | | | left main coronary | | | | | | artery (HCC) | | + +--------+ + + + | CAPILLARY BLOOD | Routin | 04/01/2017 | ST elevation | Results for this | | GLUCOSE (NO CHG), | e | 9:27 AM | myocardial | procedure are in the | | POC | | PDT | infarction involving | results section. | | | | | left main coronary | | | | | | artery (HCC) | | + +--------+ + + + | CBC AND AUTO DIFF | Urgent | 04/01/2017 | | Results for this | | | | 3:43 AM | | procedure are in the | | | | PDT | | results section. | + +--------+ + + + | INR | Urgent | 04/01/2017 | | Results for this | | | | 3:43 AM | | procedure are in the | | | | PDT | | results section. | + +--------+ + + + | CBC, WITH | Urgent | 04/01/2017 | | Results for this | | DIFFERENTIAL | | 3:43 AM | | procedure are in the | | | | PDT | | results section. | + +--------+ + + + | BASIC METABOLIC SET | Routin | 04/01/2017 | | Results for this | | (NA, K, CL, TCO2, | e | 3:43 AM | | procedure are in the | | BUN, CR, GLU, CA) | | PDT | | results section. | + +--------+ + + + | MAGNESIUM, PLASMA | Urgent | 04/01/2017 | | Results for this | | | | 3:43 AM | | procedure are in the | | | | PDT | | results section. | + +--------+ + + + | CAPILLARY BLOOD | Routin | 04/01/2017 | ST elevation | Results for this | | GLUCOSE (NO CHG), | e | 12:03 AM | myocardial | procedure are in the | | POC | | PDT | infarction involving | results section. | | | | | left main coronary | | | | | | artery (HCC) | | + +--------+ + + + | CARDIOLOGY | | 04/01/2017 | | Results for this | | | | 12:00 AM | | procedure are in the | | | | PDT | | results section. | + +--------+ + + + | CARDIOLOGY | | 04/01/2017 | | Results for this | | | | 12:00 AM | | procedure are in the | | | | PDT | | results section. | + +--------+ + + + | CAPILLARY BLOOD | Routin | 03/31/2017 | ST elevation | Results for this | | GLUCOSE (NO CHG), | e | 8:34 PM | myocardial | procedure are in the | | POC | | PDT | infarction involving | results section. | | | | | left main coronary | | | | | | artery (HCC) | | + +--------+ + + + | CAPILLARY BLOOD | Routin | 03/31/2017 | ST elevation | Results for this | | GLUCOSE (NO CHG), | e | 2:22 PM | myocardial | procedure are in the | | POC | | PDT | infarction involving | results section. | | | | | left main coronary | | | | | | artery (HCC) | | + +--------+ + + + | CAPILLARY BLOOD | Routin | 03/31/2017 | ST elevation | Results for this | | GLUCOSE (NO CHG), | e | 9:39 AM | myocardial | procedure are in the | | POC | | PDT | infarction involving | results section. | | | | | left main coronary | | | | | | artery (HCC) | | + +--------+ + + + | CBC AND AUTO DIFF | Urgent | 03/31/2017 | | Results for this | | | | 3:45 AM | | procedure are in the | | | | PDT | | results section. | + +--------+ + + + | INR | Urgent | 03/31/2017 | | Results for this | | | | 3:45 AM | | procedure are in the | | | | PDT | | results section. | + +--------+ + + + | CBC, WITH | Urgent | 03/31/2017 | | Results for this | | DIFFERENTIAL | | 3:45 AM | | procedure are in the | | | | PDT | | results section. | + +--------+ + + + | BASIC METABOLIC SET | Routin | 03/31/2017 | | Results for this | | (NA, K, CL, TCO2, | e | 3:45 AM | | procedure are in the | | BUN, CR, GLU, CA) | | PDT | | results section. | + +--------+ + + + | FERRITIN | Routin | 03/31/2017 | | Results for this | | | e | 3:45 AM | | procedure are in the | | | | PDT | | results section. | + +--------+ + + + | MAGNESIUM, PLASMA | Urgent | 03/31/2017 | | Results for this | | | | 3:45 AM | | procedure are in the | | | | PDT | | results section. | + +--------+ + + + | CARDIOLOGY | | 03/31/2017 | | Results for this | | | | 12:00 AM | | procedure are in the | | | | PDT | | results section. | + +--------+ + + + | CARDIOLOGY | | 03/31/2017 | | Results for this | | | | 12:00 AM | | procedure are in the | | | | PDT | | results section. | + +--------+ + + + | CAPILLARY BLOOD | Routin | 03/30/2017 | ST elevation | Results for this | | GLUCOSE (NO CHG), | e | 9:21 PM | myocardial | procedure are in the | | POC | | PDT | infarction involving | results section. | | | | | left main coronary | | | | | | artery (HCC) | | + +--------+ + + + | BASIC METABOLIC SET | Urgent | 03/30/2017 | | Results for this | | (NA, K, CL, TCO2, | | 8:36 PM | | procedure are in the | | BUN, CR, GLU, CA) | | PDT | | results section. | + +--------+ + + + | 12 LEAD ECG | Routin | 03/30/2017 | | Results for this | | | e | 5:46 PM | | procedure are in the | | | | PDT | | results section. | + +--------+ + + + | CAPILLARY BLOOD | Routin | 03/30/2017 | ST elevation | Results for this | | GLUCOSE (NO CHG), | e | 5:22 PM | myocardial | procedure are in the | | POC | | PDT | infarction involving | results section. | | | | | left main coronary | | | | | | artery (HCC) | | + +--------+ + + + | TROPONIN I, PLASMA | Routin | 03/30/2017 | | Results for this | | | e | 12:49 PM | | procedure are in the | | | | PDT | | results section. | + +--------+ + + + | BASIC METABOLIC SET | Routin | 03/30/2017 | | Results for this | | (NA, K, CL, TCO2, | e | 12:49 PM | | procedure are in the | | BUN, CR, GLU, CA) | | PDT | | results section. | + +--------+ + + + | TRANSTHORACIC | Routin | 03/30/2017 | | Results for this | | ECHOCARDIOGRAM, | e | 10:44 AM | | procedure are in the | | ADULT | | PDT | | results section. | + +--------+ + + + | CAPILLARY BLOOD | Routin | 03/30/2017 | ST elevation | Results for this | | GLUCOSE (NO CHG), | e | 9:08 AM | myocardial | procedure are in the | | POC | | PDT | infarction involving | results section. | | | | | left main coronary | | | | | | artery (HCC) | | + +--------+ + + + | TROPONIN I, PLASMA | Routin | 03/30/2017 | | Results for this | | | e | 5:35 AM | | procedure are in the | | | | PDT | | results section. | + +--------+ + + + | ACT, POC-CCL ONLY | Routin | 03/30/2017 | ST elevation | Results for this | | | e | 4:21 AM | myocardial | procedure are in the | | | | PDT | infarction involving | results section. | | | | | left main coronary | | | | | | artery (HCC) | | + +--------+ + + + | 12 LEAD ECG | Routin | 03/30/2017 | | Results for this | | | e | 3:22 AM | | procedure are in the | | | | PDT | | results section. | + +--------+ + + + | BASIC METABOLIC SET | Routin | 03/30/2017 | | Results for this | | (NA, K, CL, TCO2, | e | 3:14 AM | | procedure are in the | | BUN, CR, GLU, CA) | | PDT | | results section. | + +--------+ + + + | APTT (ACT. PART. | Urgent | 03/30/2017 | | Results for this | | THROMBO TIME) | | 3:14 AM | | procedure are in the | | | | PDT | | results section. | + +--------+ + + + | TROPONIN I, PLASMA | Urgent | 03/30/2017 | | Results for this | | | | 2:49 AM | | procedure are in the | | | | PDT | | results section. | + +--------+ + + + | 12 LEAD ECG | Routin | 03/30/2017 | | Results for this | | | e | 2:47 AM | | procedure are in the | | | | PDT | | results section. | + +--------+ + + + | 12 LEAD ECG | Routin | 03/30/2017 | | Results for this | | | e | 12:44 AM | | procedure are in the | | | | PDT | | results section. | + +--------+ + + + | CBC AND AUTO DIFF | Urgent | 03/30/2017 | | Results for this | | | | 12:30 AM | | procedure are in the | | | | PDT | | results section. | + +--------+ + + + | INR | Urgent | 03/30/2017 | | Results for this | | | | 12:30 AM | | procedure are in the | | | | PDT | | results section. | + +--------+ + + + | CBC, WITH | Urgent | 03/30/2017 | | Results for this | | DIFFERENTIAL | | 12:30 AM | | procedure are in the | | | | PDT | | results section. | + +--------+ + + + | TROPONIN I, PLASMA | Routin | 03/30/2017 | | Results for this | | | e | 12:30 AM | | procedure are in the | | | | PDT | | results section. | + +--------+ + + + | MAGNESIUM, PLASMA | Urgent | 03/30/2017 | | Results for this | | | | 12:30 AM | | procedure are in the | | | | PDT | | results section. | + +--------+ + + + | CARDIOLOGY | | 03/30/2017 | | Results for this | | | | 12:00 AM | | procedure are in the | | | | PDT | | results section. | + +--------+ + + + | CARDIOLOGY | | 03/30/2017 | | Results for this | | | | 12:00 AM | | procedure are in the | | | | PDT | | results section. | + +--------+ + + + | CARDIOLOGY | | 03/30/2017 | | Results for this | | | | 12:00 AM | | procedure are in the | | | | PDT | | results section. | + +--------+ + + + | CARDIOLOGY | | 03/30/2017 | | Results for this | | | | 12:00 AM | | procedure are in the | | | | PDT | | results section. | + +--------+ + + + | CAPILLARY BLOOD | Routin | 03/29/2017 | ST elevation | Results for this | | GLUCOSE (NO CHG), | e | 11:24 PM | myocardial | procedure are in the | | POC | | PDT | infarction involving | results section. | | | | | left main coronary | | | | | | artery (HCC) | | + +--------+ + + + | TROPONIN I, PLASMA | Urgent | 03/29/2017 | | Results for this | | | | 9:19 PM | | procedure are in the | | | | PDT | | results section. | + +--------+ + + + | 12 LEAD ECG | Routin | 03/29/2017 | | Results for this | | | e | 8:57 PM | | procedure are in the | | | | PDT | | results section. | + +--------+ + + + | CAPILLARY BLOOD | Routin | 03/29/2017 | ST elevation | Results for this | | GLUCOSE (NO CHG), | e | 8:16 PM | myocardial | procedure are in the | | POC | | PDT | infarction involving | results section. | | | | | left main coronary | | | | | | artery (HCC) | | + +--------+ + + + | CAPILLARY BLOOD | Routin | 03/29/2017 | ST elevation | Results for this | | GLUCOSE (NO CHG), | e | 3:40 PM | myocardial | procedure are in the | | POC | | PDT | infarction involving | results section. | | | | | left main coronary | | | | | | artery (HCC) | | + +--------+ + + + | HEPARIN, EITHER | Routin | 03/29/2017 | | Results for this | | STANDARD / LMW, | e | 2:40 PM | | procedure are in the | | BLOOD | | PDT | | results section. | + +--------+ + + + | CAPILLARY BLOOD | Routin | 03/29/2017 | ST elevation | Results for this | | GLUCOSE (NO CHG), | e | 10:00 AM | myocardial | procedure are in the | | POC | | PDT | infarction involving | results section. | | | | | left main coronary | | | | | | artery (HCC) | | + +--------+ + + + | CBC AND AUTO DIFF | Urgent | 03/29/2017 | | Results for this | | | | 7:36 AM | | procedure are in the | | | | PDT | | results section. | + +--------+ + + + | INR | Urgent | 03/29/2017 | | Results for this | | | | 7:36 AM | | procedure are in the | | | | PDT | | results section. | + +--------+ + + + | CBC, WITH | Urgent | 03/29/2017 | | Results for this | | DIFFERENTIAL | | 7:36 AM | | procedure are in the | | | | PDT | | results section. | + +--------+ + + + | BASIC METABOLIC SET | Routin | 03/29/2017 | | Results for this | | (NA, K, CL, TCO2, | e | 7:36 AM | | procedure are in the | | BUN, CR, GLU, CA) | | PDT | | results section. | + +--------+ + + + | MAGNESIUM, PLASMA | Urgent | 03/29/2017 | | Results for this | | | | 7:36 AM | | procedure are in the | | | | PDT | | results section. | + +--------+ + + + | HEPARIN, EITHER | Urgent | 03/29/2017 | | Results for this | | STANDARD / LMW, | | 5:59 AM | | procedure are in the | | BLOOD | | PDT | | results section. | + +--------+ + + + | CARDIOLOGY | | 03/29/2017 | | Results for this | | | | 12:00 AM | | procedure are in the | | | | PDT | | results section. | + +--------+ + + + | CARDIOLOGY | | 03/29/2017 | | Results for this | | | | 12:00 AM | | procedure are in the | | | | PDT | | results section. | + +--------+ + + + | HEPARIN, EITHER | Urgent | 03/28/2017 | | Results for this | | STANDARD / LMW, | | 10:22 PM | | procedure are in the | | BLOOD | | PDT | | results section. | + +--------+ + + + | CAPILLARY BLOOD | Routin | 03/28/2017 | ST elevation | Results for this | | GLUCOSE (NO CHG), | e | 9:56 PM | myocardial | procedure are in the | | POC | | PDT | infarction involving | results section. | | | | | left main coronary | | | | | | artery (HCC) | | + +--------+ + + + | CAPILLARY BLOOD | Routin | 03/28/2017 | ST elevation | Results for this | | GLUCOSE (NO CHG), | e | 6:46 PM | myocardial | procedure are in the | | POC | | PDT | infarction involving | results section. | | | | | left main coronary | | | | | | artery (HCC) | | + +--------+ + + + | BASIC METABOLIC SET | Routin | 03/28/2017 | | Results for this | | (NA, K, CL, TCO2, | e | 5:27 PM | | procedure are in the | | BUN, CR, GLU, CA) | | PDT | | results section. | + +--------+ + + + | HEPARIN, EITHER | Urgent | 03/28/2017 | | Results for this | | STANDARD / LMW, | | 2:19 PM | | procedure are in the | | BLOOD | | PDT | | results section. | + +--------+ + + + | BASIC METABOLIC SET | Routin | 03/28/2017 | | Results for this | | (NA, K, CL, TCO2, | e | 2:18 PM | | procedure are in the | | BUN, CR, GLU, CA) | | PDT | | results section. | + +--------+ + + + | CAPILLARY BLOOD | Routin | 03/28/2017 | ST elevation | Results for this | | GLUCOSE (NO CHG), | e | 1:22 PM | myocardial | procedure are in the | | POC | | PDT | infarction involving | results section. | | | | | left main coronary | | | | | | artery (HCC) | | + +--------+ + + + | CAPILLARY BLOOD | Routin | 03/28/2017 | ST elevation | Results for this | | GLUCOSE (NO CHG), | e | 10:31 AM | myocardial | procedure are in the | | POC | | PDT | infarction involving | results section. | | | | | left main coronary | | | | | | artery (HCC) | | + +--------+ + + + | CBC AND AUTO DIFF | Urgent | 03/28/2017 | | Results for this | | | | 4:13 AM | | procedure are in the | | | | PDT | | results section. | + +--------+ + + + | HEPARIN, EITHER | Routin | 03/28/2017 | | Results for this | | STANDARD / LMW, | e | 4:13 AM | | procedure are in the | | BLOOD | | PDT | | results section. | + +--------+ + + + | INR | Urgent | 03/28/2017 | | Results for this | | | | 4:13 AM | | procedure are in the | | | | PDT | | results section. | + +--------+ + + + | CBC, WITH | Urgent | 03/28/2017 | | Results for this | | DIFFERENTIAL | | 4:13 AM | | procedure are in the | | | | PDT | | results section. | + +--------+ + + + | BASIC METABOLIC SET | Routin | 03/28/2017 | | Results for this | | (NA, K, CL, TCO2, | e | 4:13 AM | | procedure are in the | | BUN, CR, GLU, CA) | | PDT | | results section. | + +--------+ + + + | MAGNESIUM, PLASMA | Urgent | 03/28/2017 | | Results for this | | | | 4:13 AM | | procedure are in the | | | | PDT | | results section. | + +--------+ + + + | CAPILLARY BLOOD | Routin | 03/28/2017 | ST elevation | Results for this | | GLUCOSE (NO CHG), | e | 12:01 AM | myocardial | procedure are in the | | POC | | PDT | infarction involving | results section. | | | | | left main coronary | | | | | | artery (HCC) | | + +--------+ + + + | CARDIOLOGY | | 03/28/2017 | | Results for this | | | | 12:00 AM | | procedure are in the | | | | PDT | | results section. | + +--------+ + + + | CARDIOLOGY | | 03/28/2017 | | Results for this | | | | 12:00 AM | | procedure are in the | | | | PDT | | results section. | + +--------+ + + + | CAPILLARY BLOOD | Routin | 03/27/2017 | ST elevation | Results for this | | GLUCOSE (NO CHG), | e | 7:32 PM | myocardial | procedure are in the | | POC | | PDT | infarction involving | results section. | | | | | left main coronary | | | | | | artery (HCC) | | + +--------+ + + + | CAPILLARY BLOOD | Routin | 03/27/2017 | ST elevation | Results for this | | GLUCOSE (NO CHG), | e | 1:56 PM | myocardial | procedure are in the | | POC | | PDT | infarction involving | results section. | | | | | left main coronary | | | | | | artery (HCC) | | + +--------+ + + + | CAPILLARY BLOOD | Routin | 03/27/2017 | ST elevation | Results for this | | GLUCOSE (NO CHG), | e | 9:01 AM | myocardial | procedure are in the | | POC | | PDT | infarction involving | results section. | | | | | left main coronary | | | | | | artery (HCC) | | + +--------+ + + + | CBC AND AUTO DIFF | Urgent | 03/27/2017 | | Results for this | | | | 3:51 AM | | procedure are in the | | | | PDT | | results section. | + +--------+ + + + | HEPARIN, EITHER | Urgent | 03/27/2017 | | Results for this | | STANDARD / LMW, | | 3:51 AM | | procedure are in the | | BLOOD | | PDT | | results section. | + +--------+ + + + | INR | Urgent | 03/27/2017 | | Results for this | | | | 3:51 AM | | procedure are in the | | | | PDT | | results section. | + +--------+ + + + | CBC, WITH | Urgent | 03/27/2017 | | Results for this | | DIFFERENTIAL | | 3:51 AM | | procedure are in the | | | | PDT | | results section. | + +--------+ + + + | BASIC METABOLIC SET | Routin | 03/27/2017 | | Results for this | | (NA, K, CL, TCO2, | e | 3:51 AM | | procedure are in the | | BUN, CR, GLU, CA) | | PDT | | results section. | + +--------+ + + + | MAGNESIUM, PLASMA | Urgent | 03/27/2017 | | Results for this | | | | 3:51 AM | | procedure are in the | | | | PDT | | results section. | + +--------+ + + + | CARDIOLOGY | | 03/27/2017 | | Results for this | | | | 12:00 AM | | procedure are in the | | | | PDT | | results section. | + +--------+ + + + | CAPILLARY BLOOD | Routin | 03/26/2017 | ST elevation | Results for this | | GLUCOSE (NO CHG), | e | 10:01 PM | myocardial | procedure are in the | | POC | | PDT | infarction involving | results section. | | | | | left main coronary | | | | | | artery (HCC) | | + +--------+ + + + | CAPILLARY BLOOD | Routin | 03/26/2017 | ST elevation | Results for this | | GLUCOSE (NO CHG), | e | 5:30 PM | myocardial | procedure are in the | | POC | | PDT | infarction involving | results section. | | | | | left main coronary | | | | | | artery (HCC) | | + +--------+ + + + | BASIC METABOLIC SET | Routin | 03/26/2017 | | Results for this | | (NA, K, CL, TCO2, | e | 4:03 PM | | procedure are in the | | BUN, CR, GLU, CA) | | PDT | | results section. | + +--------+ + + + | CAPILLARY BLOOD | Routin | 03/26/2017 | ST elevation | Results for this | | GLUCOSE (NO CHG), | e | 8:51 AM | myocardial | procedure are in the | | POC | | PDT | infarction involving | results section. | | | | | left main coronary | | | | | | artery (HCC) | | + +--------+ + + + | RAINBOW HOLD TUBE - | Routin | 03/26/2017 | | | | GREEN TOP | e | 3:50 AM | | | | | | PDT | | | + +--------+ + + + | CBC AND AUTO DIFF | Urgent | 03/26/2017 | | Results for this | | | | 3:37 AM | | procedure are in the | | | | PDT | | results section. | + +--------+ + + + | HEPARIN, EITHER | Urgent | 03/26/2017 | | Results for this | | STANDARD / LMW, | | 3:37 AM | | procedure are in the | | BLOOD | | PDT | | results section. | + +--------+ + + + | INR | Urgent | 03/26/2017 | | Results for this | | | | 3:37 AM | | procedure are in the | | | | PDT | | results section. | + +--------+ + + + | CBC, WITH | Urgent | 03/26/2017 | | Results for this | | DIFFERENTIAL | | 3:37 AM | | procedure are in the | | | | PDT | | results section. | + +--------+ + + + | LIVER SET | Routin | 03/26/2017 | | Results for this | | (AST,ALT,BILI | e | 3:37 AM | | procedure are in the | | TOTAL,BILI | | PDT | | results section. | | DIRECT,ALK | | | | | | PHOS,ALB,PROT TOTAL) | | | | | + +--------+ + + + | BASIC METABOLIC SET | Routin | 03/26/2017 | | Results for this | | (NA, K, CL, TCO2, | e | 3:37 AM | | procedure are in the | | BUN, CR, GLU, CA) | | PDT | | results section. | + +--------+ + + + | HEMOGLOBIN A1C, | Routin | 03/26/2017 | | Results for this | | BLOOD | e | 3:37 AM | | procedure are in the | | | | PDT | | results section. | + +--------+ + + + | MAGNESIUM, PLASMA | Urgent | 03/26/2017 | | Results for this | | | | 3:37 AM | | procedure are in the | | | | PDT | | results section. | + +--------+ + + + | CARDIOLOGY | | 03/26/2017 | | Results for this | | | | 12:00 AM | | procedure are in the | | | | PDT | | results section. | + +--------+ + + + | CARDIOLOGY | | 03/26/2017 | | Results for this | | | | 12:00 AM | | procedure are in the | | | | PDT | | results section. | + +--------+ + + + | CAPILLARY BLOOD | Routin | 03/25/2017 | ST elevation | Results for this | | GLUCOSE (NO CHG), | e | 11:39 PM | myocardial | procedure are in the | | POC | | PDT | infarction involving | results section. | | | | | left main coronary | | | | | | artery (HCC) | | + +--------+ + + + | CAPILLARY BLOOD | Routin | 03/25/2017 | ST elevation | Results for this | | GLUCOSE (NO CHG), | e | 8:08 PM | myocardial | procedure are in the | | POC | | PDT | infarction involving | results section. | | | | | left main coronary | | | | | | artery (HCC) | | + +--------+ + + + | UA, DIPSTICK ONLY | Urgent | 03/25/2017 | | Results for this | | | | 6:23 PM | | procedure are in the | | | | PDT | | results section. | + +--------+ + + + | URINE, MICROSCOPIC | Routin | 03/25/2017 | | Results for this | | EXAM | e | 6:23 PM | | procedure are in the | | | | PDT | | results section. | + +--------+ + + + | PREALBUMIN, SERUM | Urgent | 03/25/2017 | | Results for this | | | | 6:22 PM | | procedure are in the | | | | PDT | | results section. | + +--------+ + + + | CAPILLARY BLOOD | Routin | 03/25/2017 | ST elevation | Results for this | | GLUCOSE (NO CHG), | e | 12:56 PM | myocardial | procedure are in the | | POC | | PDT | infarction involving | results section. | | | | | left main coronary | | | | | | artery (HCC) | | + +--------+ + + + | CAPILLARY BLOOD | Routin | 03/25/2017 | ST elevation | Results for this | | GLUCOSE (NO CHG), | e | 8:14 AM | myocardial | procedure are in the | | POC | | PDT | infarction involving | results section. | | | | | left main coronary | | | | | | artery (HCC) | | + +--------+ + + + | HEPARIN, EITHER | Urgent | 03/25/2017 | | Results for this | | STANDARD / LMW, | | 5:07 AM | | procedure are in the | | BLOOD | | PDT | | results section. | + +--------+ + + + | CBC AND AUTO DIFF | Urgent | 03/25/2017 | | Results for this | | | | 12:52 AM | | procedure are in the | | | | PDT | | results section. | + +--------+ + + + | INR | Urgent | 03/25/2017 | | Results for this | | | | 12:52 AM | | procedure are in the | | | | PDT | | results section. | + +--------+ + + + | CBC, WITH | Urgent | 03/25/2017 | | Results for this | | DIFFERENTIAL | | 12:52 AM | | procedure are in the | | | | PDT | | results section. | + +--------+ + + + | RENAL FUNCTION SET | Urgent | 03/25/2017 | | Results for this | | (NA,K,CL,CO2,BUN,CRE | | 12:52 AM | | procedure are in the | | AT,GLUC,CA,PHOS,ALB | | PDT | | results section. | | ) | | | | | + +--------+ + + + | MAGNESIUM, PLASMA | Urgent | 03/25/2017 | | Results for this | | | | 12:52 AM | | procedure are in the | | | | PDT | | results section. | + +--------+ + + + | CARDIOLOGY | | 03/25/2017 | | Results for this | | | | 12:00 AM | | procedure are in the | | | | PDT | | results section. | + +--------+ + + + | CARDIOLOGY | | 03/25/2017 | | Results for this | | | | 12:00 AM | | procedure are in the | | | | PDT | | results section. | + +--------+ + + + | CARDIOLOGY | | 03/25/2017 | | Results for this | | | | 12:00 AM | | procedure are in the | | | | PDT | | results section. | + +--------+ + + + | HEPARIN, EITHER | Urgent | 03/24/2017 | | Results for this | | STANDARD / LMW, | | 10:22 PM | | procedure are in the | | BLOOD | | PDT | | results section. | + +--------+ + + + | CAPILLARY BLOOD | Routin | 03/24/2017 | ST elevation | Results for this | | GLUCOSE (NO CHG), | e | 10:07 PM | myocardial | procedure are in the | | POC | | PDT | infarction involving | results section. | | | | | left main coronary | | | | | | artery (HCC) | | + +--------+ + + + | CAPILLARY BLOOD | Routin | 03/24/2017 | ST elevation | Results for this | | GLUCOSE (NO CHG), | e | 9:15 PM | myocardial | procedure are in the | | POC | | PDT | infarction involving | results section. | | | | | left main coronary | | | | | | artery (HCC) | | + +--------+ + + + | CAPILLARY BLOOD | Routin | 03/24/2017 | ST elevation | Results for this | | GLUCOSE (NO CHG), | e | 5:57 PM | myocardial | procedure are in the | | POC | | PDT | infarction involving | results section. | | | | | left main coronary | | | | | | artery (HCC) | | + +--------+ + + + | CAPILLARY BLOOD | Routin | 03/24/2017 | ST elevation | Results for this | | GLUCOSE (NO CHG), | e | 4:14 PM | myocardial | procedure are in the | | POC | | PDT | infarction involving | results section. | | | | | left main coronary | | | | | | artery (HCC) | | + +--------+ + + + | HEPARIN, EITHER | Urgent | 03/24/2017 | | Results for this | | STANDARD / LMW, | | 4:00 PM | | procedure are in the | | BLOOD | | PDT | | results section. | + +--------+ + + + | POTASSIUM, PLASMA | Urgent | 03/24/2017 | | Results for this | | | | 4:00 PM | | procedure are in the | | | | PDT | | results section. | + +--------+ + + + | CAPILLARY BLOOD | Routin | 03/24/2017 | ST elevation | Results for this | | GLUCOSE (NO CHG), | e | 11:45 AM | myocardial | procedure are in the | | POC | | PDT | infarction involving | results section. | | | | | left main coronary | | | | | | artery (HCC) | | + +--------+ + + + | PROCEDURE NOTE | Routin | 03/24/2017 | | Results for this | | | e | 11:25 AM | | procedure are in the | | | | PDT | | results section. | + +--------+ + + + | CAPILLARY BLOOD | Routin | 03/24/2017 | ST elevation | Results for this | | GLUCOSE (NO CHG), | e | 10:39 AM | myocardial | procedure are in the | | POC | | PDT | infarction involving | results section. | | | | | left main coronary | | | | | | artery (HCC) | | + +--------+ + + + | CAPILLARY BLOOD | Routin | 03/24/2017 | ST elevation | Results for this | | GLUCOSE (NO CHG), | e | 8:41 AM | myocardial | procedure are in the | | POC | | PDT | infarction involving | results section. | | | | | left main coronary | | | | | | artery (HCC) | | + +--------+ + + + | HEPARIN, EITHER | Urgent | 03/24/2017 | | Results for this | | STANDARD / LMW, | | 8:33 AM | | procedure are in the | | BLOOD | | PDT | | results section. | + +--------+ + + + | CAPILLARY BLOOD | Routin | 03/24/2017 | ST elevation | Results for this | | GLUCOSE (NO CHG), | e | 6:52 AM | myocardial | procedure are in the | | POC | | PDT | infarction involving | results section. | | | | | left main coronary | | | | | | artery (HCC) | | + +--------+ + + + | CAPILLARY BLOOD | Routin | 03/24/2017 | ST elevation | Results for this | | GLUCOSE (NO CHG), | e | 5:44 AM | myocardial | procedure are in the | | POC | | PDT | infarction involving | results section. | | | | | left main coronary | | | | | | artery (HCC) | | + +--------+ + + + | CAPILLARY BLOOD | Routin | 03/24/2017 | ST elevation | Results for this | | GLUCOSE (NO CHG), | e | 3:50 AM | myocardial | procedure are in the | | POC | | PDT | infarction involving | results section. | | | | | left main coronary | | | | | | artery (HCC) | | + +--------+ + + + | CAPILLARY BLOOD | Routin | 03/24/2017 | ST elevation | Results for this | | GLUCOSE (NO CHG), | e | 2:02 AM | myocardial | procedure are in the | | POC | | PDT | infarction involving | results section. | | | | | left main coronary | | | | | | artery (HCC) | | + +--------+ + + + | CBC AND AUTO DIFF | Urgent | 03/24/2017 | | Results for this | | | | 12:12 AM | | procedure are in the | | | | PDT | | results section. | + +--------+ + + + | HEPARIN, EITHER | Urgent | 03/24/2017 | | Results for this | | STANDARD / LMW, | | 12:12 AM | | procedure are in the | | BLOOD | | PDT | | results section. | + +--------+ + + + | INR | Urgent | 03/24/2017 | | Results for this | | | | 12:12 AM | | procedure are in the | | | | PDT | | results section. | + +--------+ + + + | CBC, WITH | Urgent | 03/24/2017 | | Results for this | | DIFFERENTIAL | | 12:12 AM | | procedure are in the | | | | PDT | | results section. | + +--------+ + + + | RENAL FUNCTION SET | Urgent | 03/24/2017 | | Results for this | | (NA,K,CL,CO2,BUN,CRE | | 12:12 AM | | procedure are in the | | AT,GLUC,CA,PHOS,ALB | | PDT | | results section. | | ) | | | | | + +--------+ + + + | MAGNESIUM, PLASMA | Urgent | 03/24/2017 | | Results for this | | | | 12:12 AM | | procedure are in the | | | | PDT | | results section. | + +--------+ + + + | CAPILLARY BLOOD | Routin | 03/24/2017 | ST elevation | Results for this | | GLUCOSE (NO CHG), | e | 12:10 AM | myocardial | procedure are in the | | POC | | PDT | infarction involving | results section. | | | | | left main coronary | | | | | | artery (HCC) | | + +--------+ + + + | CAPILLARY BLOOD | Routin | 03/23/2017 | ST elevation | Results for this | | GLUCOSE (NO CHG), | e | 10:08 PM | myocardial | procedure are in the | | POC | | PDT | infarction involving | results section. | | | | | left main coronary | | | | | | artery (HCC) | | + +--------+ + + + | CAPILLARY BLOOD | Routin | 03/23/2017 | ST elevation | Results for this | | GLUCOSE (NO CHG), | e | 7:07 PM | myocardial | procedure are in the | | POC | | PDT | infarction involving | results section. | | | | | left main coronary | | | | | | artery (HCC) | | + +--------+ + + + | CAPILLARY BLOOD | Routin | 03/23/2017 | ST elevation | Results for this | | GLUCOSE (NO CHG), | e | 5:45 PM | myocardial | procedure are in the | | POC | | PDT | infarction involving | results section. | | | | | left main coronary | | | | | | artery (HCC) | | + +--------+ + + + | POTASSIUM, PLASMA | Urgent | 03/23/2017 | | Results for this | | | | 2:48 PM | | procedure are in the | | | | PDT | | results section. | + +--------+ + + + | CAPILLARY BLOOD | Routin | 03/23/2017 | ST elevation | Results for this | | GLUCOSE (NO CHG), | e | 2:47 PM | myocardial | procedure are in the | | POC | | PDT | infarction involving | results section. | | | | | left main coronary | | | | | | artery (HCC) | | + +--------+ + + + | CAPILLARY BLOOD | Routin | 03/23/2017 | ST elevation | Results for this | | GLUCOSE (NO CHG), | e | 1:53 PM | myocardial | procedure are in the | | POC | | PDT | infarction involving | results section. | | | | | left main coronary | | | | | | artery (HCC) | | + +--------+ + + + | POTASSIUM, PLASMA | Urgent | 03/23/2017 | | Results for this | | | | 1:28 PM | | procedure are in the | | | | PDT | | results section. | + +--------+ + + + | CAPILLARY BLOOD | Routin | 03/23/2017 | ST elevation | Results for this | | GLUCOSE (NO CHG), | e | 11:42 AM | myocardial | procedure are in the | | POC | | PDT | infarction involving | results section. | | | | | left main coronary | | | | | | artery (HCC) | | + +--------+ + + + | CAPILLARY BLOOD | Routin | 03/23/2017 | ST elevation | Results for this | | GLUCOSE (NO CHG), | e | 9:18 AM | myocardial | procedure are in the | | POC | | PDT | infarction involving | results section. | | | | | left main coronary | | | | | | artery (HCC) | | + +--------+ + + + | CAPILLARY BLOOD | Routin | 03/23/2017 | ST elevation | Results for this | | GLUCOSE (NO CHG), | e | 6:13 AM | myocardial | procedure are in the | | POC | | PDT | infarction involving | results section. | | | | | left main coronary | | | | | | artery (HCC) | | + +--------+ + + + | CAPILLARY BLOOD | Routin | 03/23/2017 | ST elevation | Results for this | | GLUCOSE (NO CHG), | e | 4:02 AM | myocardial | procedure are in the | | POC | | PDT | infarction involving | results section. | | | | | left main coronary | | | | | | artery (HCC) | | + +--------+ + + + | CAPILLARY BLOOD | Routin | 03/23/2017 | ST elevation | Results for this | | GLUCOSE (NO CHG), | e | 2:05 AM | myocardial | procedure are in the | | POC | | PDT | infarction involving | results section. | | | | | left main coronary | | | | | | artery (HCC) | | + +--------+ + + + | CBC AND AUTO DIFF | Urgent | 03/23/2017 | | Results for this | | | | 2:00 AM | | procedure are in the | | | | PDT | | results section. | + +--------+ + + + | HEPARIN, EITHER | Urgent | 03/23/2017 | | Results for this | | STANDARD / LMW, | | 2:00 AM | | procedure are in the | | BLOOD | | PDT | | results section. | + +--------+ + + + | INR | Urgent | 03/23/2017 | | Results for this | | | | 2:00 AM | | procedure are in the | | | | PDT | | results section. | + +--------+ + + + | CBC, WITH | Urgent | 03/23/2017 | | Results for this | | DIFFERENTIAL | | 2:00 AM | | procedure are in the | | | | PDT | | results section. | + +--------+ + + + | RENAL FUNCTION SET | Urgent | 03/23/2017 | | Results for this | | (NA,K,CL,CO2,BUN,CRE | | 2:00 AM | | procedure are in the | | AT,GLUC,CA,PHOS,ALB | | PDT | | results section. | | ) | | | | | + +--------+ + + + | MAGNESIUM, PLASMA | Urgent | 03/23/2017 | | Results for this | | | | 2:00 AM | | procedure are in the | | | | PDT | | results section. | + +--------+ + + + | CAPILLARY BLOOD | Routin | 03/23/2017 | ST elevation | Results for this | | GLUCOSE (NO CHG), | e | 12:10 AM | myocardial | procedure are in the | | POC | | PDT | infarction involving | results section. | | | | | left main coronary | | | | | | artery (HCC) | | + +--------+ + + + | CAPILLARY BLOOD | Routin | 03/22/2017 | ST elevation | Results for this | | GLUCOSE (NO CHG), | e | 11:07 PM | myocardial | procedure are in the | | POC | | PDT | infarction involving | results section. | | | | | left main coronary | | | | | | artery (HCC) | | + +--------+ + + + | CAPILLARY BLOOD | Routin | 03/22/2017 | ST elevation | Results for this | | GLUCOSE (NO CHG), | e | 9:55 PM | myocardial | procedure are in the | | POC | | PDT | infarction involving | results section. | | | | | left main coronary | | | | | | artery (HCC) | | + +--------+ + + + | CAPILLARY BLOOD | Routin | 03/22/2017 | ST elevation | Results for this | | GLUCOSE (NO CHG), | e | 8:17 PM | myocardial | procedure are in the | | POC | | PDT | infarction involving | results section. | | | | | left main coronary | | | | | | artery (HCC) | | + +--------+ + + + | CAPILLARY BLOOD | Routin | 03/22/2017 | ST elevation | Results for this | | GLUCOSE (NO CHG), | e | 6:52 PM | myocardial | procedure are in the | | POC | | PDT | infarction involving | results section. | | | | | left main coronary | | | | | | artery (HCC) | | + +--------+ + + + | CAPILLARY BLOOD | Routin | 03/22/2017 | ST elevation | Results for this | | GLUCOSE (NO CHG), | e | 5:46 PM | myocardial | procedure are in the | | POC | | PDT | infarction involving | results section. | | | | | left main coronary | | | | | | artery (HCC) | | + +--------+ + + + | POTASSIUM, PLASMA | Urgent | 03/22/2017 | | Results for this | | | | 5:33 PM | | procedure are in the | | | | PDT | | results section. | + +--------+ + + + | CAPILLARY BLOOD | Routin | 03/22/2017 | ST elevation | Results for this | | GLUCOSE (NO CHG), | e | 4:06 PM | myocardial | procedure are in the | | POC | | PDT | infarction involving | results section. | | | | | left main coronary | | | | | | artery (HCC) | | + +--------+ + + + | CAPILLARY BLOOD | Routin | 03/22/2017 | ST elevation | Results for this | | GLUCOSE (NO CHG), | e | 3:12 PM | myocardial | procedure are in the | | POC | | PDT | infarction involving | results section. | | | | | left main coronary | | | | | | artery (HCC) | | + +--------+ + + + | CAPILLARY BLOOD | Routin | 03/22/2017 | ST elevation | Results for this | | GLUCOSE (NO CHG), | e | 2:03 PM | myocardial | procedure are in the | | POC | | PDT | infarction involving | results section. | | | | | left main coronary | | | | | | artery (HCC) | | + +--------+ + + + | CAPILLARY BLOOD | Routin | 03/22/2017 | ST elevation | Results for this | | GLUCOSE (NO CHG), | e | 1:00 PM | myocardial | procedure are in the | | POC | | PDT | infarction involving | results section. | | | | | left main coronary | | | | | | artery (HCC) | | + +--------+ + + + | CAPILLARY BLOOD | Routin | 03/22/2017 | ST elevation | Results for this | | GLUCOSE (NO CHG), | e | 11:54 AM | myocardial | procedure are in the | | POC | | PDT | infarction involving | results section. | | | | | left main coronary | | | | | | artery (HCC) | | + +--------+ + + + | POTASSIUM, PLASMA | Urgent | 03/22/2017 | | Results for this | | | | 11:09 AM | | procedure are in the | | | | PDT | | results section. | + +--------+ + + + | CAPILLARY BLOOD | Routin | 03/22/2017 | ST elevation | Results for this | | GLUCOSE (NO CHG), | e | 10:58 AM | myocardial | procedure are in the | | POC | | PDT | infarction involving | results section. | | | | | left main coronary | | | | | | artery (HCC) | | + +--------+ + + + | CAPILLARY BLOOD | Routin | 03/22/2017 | ST elevation | Results for this | | GLUCOSE (NO CHG), | e | 9:49 AM | myocardial | procedure are in the | | POC | | PDT | infarction involving | results section. | | | | | left main coronary | | | | | | artery (HCC) | | + +--------+ + + + | CAPILLARY BLOOD | Routin | 03/22/2017 | ST elevation | Results for this | | GLUCOSE (NO CHG), | e | 8:21 AM | myocardial | procedure are in the | | POC | | PDT | infarction involving | results section. | | | | | left main coronary | | | | | | artery (HCC) | | + +--------+ + + + | CAPILLARY BLOOD | Routin | 03/22/2017 | ST elevation | Results for this | | GLUCOSE (NO CHG), | e | 7:26 AM | myocardial | procedure are in the | | POC | | PDT | infarction involving | results section. | | | | | left main coronary | | | | | | artery (HCC) | | + +--------+ + + + | CAPILLARY BLOOD | Routin | 03/22/2017 | ST elevation | Results for this | | GLUCOSE (NO CHG), | e | 6:06 AM | myocardial | procedure are in the | | POC | | PDT | infarction involving | results section. | | | | | left main coronary | | | | | | artery (HCC) | | + +--------+ + + + | CAPILLARY BLOOD | Routin | 03/22/2017 | ST elevation | Results for this | | GLUCOSE (NO CHG), | e | 4:30 AM | myocardial | procedure are in the | | POC | | PDT | infarction involving | results section. | | | | | left main coronary | | | | | | artery (HCC) | | + +--------+ + + + | ANTIBODY SCREEN | Urgent | 03/22/2017 | | Results for this | | | | 4:20 AM | | procedure are in the | | | | PDT | | results section. | + +--------+ + + + | TYPE AND SCREEN | Urgent | 03/22/2017 | | Results for this | | | | 4:20 AM | | procedure are in the | | | | PDT | | results section. | + +--------+ + + + | ABO & RH TYPE | Urgent | 03/22/2017 | | Results for this | | | | 4:20 AM | | procedure are in the | | | | PDT | | results section. | + +--------+ + + + | PRODUCT - RED CELLS | Routin | 03/22/2017 | | Results for this | | LEUKOREDUCED | e | 4:00 AM | | procedure are in the | | | | PDT | | results section. | + +--------+ + + + | CBC AND AUTO DIFF | Urgent | 03/22/2017 | | Results for this | | | | 3:15 AM | | procedure are in the | | | | PDT | | results section. | + +--------+ + + + | MANUAL DIFFERENTIAL | Routin | 03/22/2017 | | Results for this | | | e | 3:15 AM | | procedure are in the | | | | PDT | | results section. | + +--------+ + + + | HEPARIN, EITHER | Urgent | 03/22/2017 | | Results for this | | STANDARD / LMW, | | 3:15 AM | | procedure are in the | | BLOOD | | PDT | | results section. | + +--------+ + + + | INR | Urgent | 03/22/2017 | | Results for this | | | | 3:15 AM | | procedure are in the | | | | PDT | | results section. | + +--------+ + + + | CBC, WITH | Urgent | 03/22/2017 | | Results for this | | DIFFERENTIAL | | 3:15 AM | | procedure are in the | | | | PDT | | results section. | + +--------+ + + + | RENAL FUNCTION SET | Urgent | 03/22/2017 | | Results for this | | (NA,K,CL,CO2,BUN,CRE | | 3:15 AM | | procedure are in the | | AT,GLUC,CA,PHOS,ALB | | PDT | | results section. | | ) | | | | | + +--------+ + + + | MAGNESIUM, PLASMA | Urgent | 03/22/2017 | | Results for this | | | | 3:15 AM | | procedure are in the | | | | PDT | | results section. | + +--------+ + + + | CAPILLARY BLOOD | Routin | 03/22/2017 | ST elevation | Results for this | | GLUCOSE (NO CHG), | e | 3:14 AM | myocardial | procedure are in the | | POC | | PDT | infarction involving | results section. | | | | | left main coronary | | | | | | artery (HCC) | | + +--------+ + + + | CAPILLARY BLOOD | Routin | 03/22/2017 | ST elevation | Results for this | | GLUCOSE (NO CHG), | e | 2:02 AM | myocardial | procedure are in the | | POC | | PDT | infarction involving | results section. | | | | | left main coronary | | | | | | artery (HCC) | | + +--------+ + + + | CAPILLARY BLOOD | Routin | 03/22/2017 | ST elevation | Results for this | | GLUCOSE (NO CHG), | e | 1:07 AM | myocardial | procedure are in the | | POC | | PDT | infarction involving | results section. | | | | | left main coronary | | | | | | artery (HCC) | | + +--------+ + + + | CAPILLARY BLOOD | Routin | 03/21/2017 | ST elevation | Results for this | | GLUCOSE (NO CHG), | e | 11:29 PM | myocardial | procedure are in the | | POC | | PDT | infarction involving | results section. | | | | | left main coronary | | | | | | artery (HCC) | | + +--------+ + + + | CAPILLARY BLOOD | Routin | 03/21/2017 | ST elevation | Results for this | | GLUCOSE (NO CHG), | e | 10:22 PM | myocardial | procedure are in the | | POC | | PDT | infarction involving | results section. | | | | | left main coronary | | | | | | artery (HCC) | | + +--------+ + + + | CAPILLARY BLOOD | Routin | 03/21/2017 | ST elevation | Results for this | | GLUCOSE (NO CHG), | e | 8:57 PM | myocardial | procedure are in the | | POC | | PDT | infarction involving | results section. | | | | | left main coronary | | | | | | artery (HCC) | | + +--------+ + + + | CAPILLARY BLOOD | Routin | 03/21/2017 | ST elevation | Results for this | | GLUCOSE (NO CHG), | e | 6:57 PM | myocardial | procedure are in the | | POC | | PDT | infarction involving | results section. | | | | | left main coronary | | | | | | artery (HCC) | | + +--------+ + + + | CAPILLARY BLOOD | Routin | 03/21/2017 | ST elevation | Results for this | | GLUCOSE (NO CHG), | e | 5:58 PM | myocardial | procedure are in the | | POC | | PDT | infarction involving | results section. | | | | | left main coronary | | | | | | artery (HCC) | | + +--------+ + + + | CAPILLARY BLOOD | Routin | 03/21/2017 | ST elevation | Results for this | | GLUCOSE (NO CHG), | e | 4:55 PM | myocardial | procedure are in the | | POC | | PDT | infarction involving | results section. | | | | | left main coronary | | | | | | artery (HCC) | | + +--------+ + + + | RENAL FUNCTION SET | Urgent | 03/21/2017 | | Results for this | | (NA,K,CL,CO2,BUN,CRE | | 4:35 PM | | procedure are in the | | AT,GLUC,CA,PHOS,ALB | | PDT | | results section. | | ) | | | | | + +--------+ + + + | CAPILLARY BLOOD | Routin | 03/21/2017 | ST elevation | Results for this | | GLUCOSE (NO CHG), | e | 4:02 PM | myocardial | procedure are in the | | POC | | PDT | infarction involving | results section. | | | | | left main coronary | | | | | | artery (HCC) | | + +--------+ + + + | CAPILLARY BLOOD | Routin | 03/21/2017 | ST elevation | Results for this | | GLUCOSE (NO CHG), | e | 2:53 PM | myocardial | procedure are in the | | POC | | PDT | infarction involving | results section. | | | | | left main coronary | | | | | | artery (HCC) | | + +--------+ + + + | CAPILLARY BLOOD | Routin | 03/21/2017 | ST elevation | Results for this | | GLUCOSE (NO CHG), | e | 1:46 PM | myocardial | procedure are in the | | POC | | PDT | infarction involving | results section. | | | | | left main coronary | | | | | | artery (HCC) | | + +--------+ + + + | PROCEDURE NOTE | Routin | 03/21/2017 | | Results for this | | | e | 1:00 PM | | procedure are in the | | | | PDT | | results section. | + +--------+ + + + | CAPILLARY BLOOD | Routin | 03/21/2017 | ST elevation | Results for this | | GLUCOSE (NO CHG), | e | 12:50 PM | myocardial | procedure are in the | | POC | | PDT | infarction involving | results section. | | | | | left main coronary | | | | | | artery (HCC) | | + +--------+ + + + | CAPILLARY BLOOD | Routin | 03/21/2017 | ST elevation | Results for this | | GLUCOSE (NO CHG), | e | 11:42 AM | myocardial | procedure are in the | | POC | | PDT | infarction involving | results section. | | | | | left main coronary | | | | | | artery (HCC) | | + +--------+ + + + | CO-OXIMETER PANEL, | Urgent | 03/21/2017 | | Results for this | | BLOOD | | 11:12 AM | | procedure are in the | | | | PDT | | results section. | + +--------+ + + + | X-RAY CHEST 1 VIEW | Urgent | 03/21/2017 | | Results for this | | | | 10:52 AM | | procedure are in the | | | | PDT | | results section. | + +--------+ + + + | CAPILLARY BLOOD | Routin | 03/21/2017 | ST elevation | Results for this | | GLUCOSE (NO CHG), | e | 10:37 AM | myocardial | procedure are in the | | POC | | PDT | infarction involving | results section. | | | | | left main coronary | | | | | | artery (HCC) | | + +--------+ + + + | INR | Urgent | 03/21/2017 | | Results for this | | | | 10:26 AM | | procedure are in the | | | | PDT | | results section. | + +--------+ + + + | CAPILLARY BLOOD | Routin | 03/21/2017 | ST elevation | Results for this | | GLUCOSE (NO CHG), | e | 9:43 AM | myocardial | procedure are in the | | POC | | PDT | infarction involving | results section. | | | | | left main coronary | | | | | | artery (HCC) | | + +--------+ + + + | CAPILLARY BLOOD | Routin | 03/21/2017 | ST elevation | Results for this | | GLUCOSE (NO CHG), | e | 8:12 AM | myocardial | procedure are in the | | POC | | PDT | infarction involving | results section. | | | | | left main coronary | | | | | | artery (HCC) | | + +--------+ + + + | CAPILLARY BLOOD | Routin | 03/21/2017 | ST elevation | Results for this | | GLUCOSE (NO CHG), | e | 6:44 AM | myocardial | procedure are in the | | POC | | PDT | infarction involving | results section. | | | | | left main coronary | | | | | | artery (HCC) | | + +--------+ + + + | CAPILLARY BLOOD | Routin | 03/21/2017 | ST elevation | Results for this | | GLUCOSE (NO CHG), | e | 5:37 AM | myocardial | procedure are in the | | POC | | PDT | infarction involving | results section. | | | | | left main coronary | | | | | | artery (HCC) | | + +--------+ + + + | CBC AND AUTO DIFF | Urgent | 03/21/2017 | | Results for this | | | | 5:34 AM | | procedure are in the | | | | PDT | | results section. | + +--------+ + + + | HEPARIN, EITHER | Urgent | 03/21/2017 | | Results for this | | STANDARD / LMW, | | 5:34 AM | | procedure are in the | | BLOOD | | PDT | | results section. | + +--------+ + + + | CBC, WITH | Urgent | 03/21/2017 | | Results for this | | DIFFERENTIAL | | 5:34 AM | | procedure are in the | | | | PDT | | results section. | + +--------+ + + + | RENAL FUNCTION SET | Urgent | 03/21/2017 | | Results for this | | (NA,K,CL,CO2,BUN,CRE | | 5:34 AM | | procedure are in the | | AT,GLUC,CA,PHOS,ALB | | PDT | | results section. | | ) | | | | | + +--------+ + + + | MAGNESIUM, PLASMA | Urgent | 03/21/2017 | | Results for this | | | | 5:34 AM | | procedure are in the | | | | PDT | | results section. | + +--------+ + + + | CAPILLARY BLOOD | Routin | 03/21/2017 | ST elevation | Results for this | | GLUCOSE (NO CHG), | e | 4:08 AM | myocardial | procedure are in the | | POC | | PDT | infarction involving | results section. | | | | | left main coronary | | | | | | artery (HCC) | | + +--------+ + + + | CAPILLARY BLOOD | Routin | 03/21/2017 | ST elevation | Results for this | | GLUCOSE (NO CHG), | e | 3:12 AM | myocardial | procedure are in the | | POC | | PDT | infarction involving | results section. | | | | | left main coronary | | | | | | artery (HCC) | | + +--------+ + + + | THROMBELASTOGRAPH, | Routin | 03/21/2017 | | Results for this | | POC | e | 1:02 AM | | procedure are in the | | | | PDT | | results section. | + +--------+ + + + | CAPILLARY BLOOD | Routin | 03/21/2017 | ST elevation | Results for this | | GLUCOSE (NO CHG), | e | 12:51 AM | myocardial | procedure are in the | | POC | | PDT | infarction involving | results section. | | | | | left main coronary | | | | | | artery (HCC) | | + +--------+ + + + | CAPILLARY BLOOD | Routin | 03/20/2017 | ST elevation | Results for this | | GLUCOSE (NO CHG), | e | 11:57 PM | myocardial | procedure are in the | | POC | | PDT | infarction involving | results section. | | | | | left main coronary | | | | | | artery (HCC) | | + +--------+ + + + | POTASSIUM, PLASMA | Urgent | 03/20/2017 | | Results for this | | | | 11:53 PM | | procedure are in the | | | | PDT | | results section. | + +--------+ + + + | CAPILLARY BLOOD | Routin | 03/20/2017 | ST elevation | Results for this | | GLUCOSE (NO CHG), | e | 10:57 PM | myocardial | procedure are in the | | POC | | PDT | infarction involving | results section. | | | | | left main coronary | | | | | | artery (HCC) | | + +--------+ + + + | CAPILLARY BLOOD | Routin | 03/20/2017 | ST elevation | Results for this | | GLUCOSE (NO CHG), | e | 9:56 PM | myocardial | procedure are in the | | POC | | PDT | infarction involving | results section. | | | | | left main coronary | | | | | | artery (HCC) | | + +--------+ + + + | CAPILLARY BLOOD | Routin | 03/20/2017 | ST elevation | Results for this | | GLUCOSE (NO CHG), | e | 8:56 PM | myocardial | procedure are in the | | POC | | PDT | infarction involving | results section. | | | | | left main coronary | | | | | | artery (HCC) | | + +--------+ + + + | CAPILLARY BLOOD | Routin | 03/20/2017 | ST elevation | Results for this | | GLUCOSE (NO CHG), | e | 7:58 PM | myocardial | procedure are in the | | POC | | PDT | infarction involving | results section. | | | | | left main coronary | | | | | | artery (HCC) | | + +--------+ + + + | CAPILLARY BLOOD | Routin | 03/20/2017 | ST elevation | Results for this | | GLUCOSE (NO CHG), | e | 6:55 PM | myocardial | procedure are in the | | POC | | PDT | infarction involving | results section. | | | | | left main coronary | | | | | | artery (HCC) | | + +--------+ + + + | CAPILLARY BLOOD | Routin | 03/20/2017 | ST elevation | Results for this | | GLUCOSE (NO CHG), | e | 5:55 PM | myocardial | procedure are in the | | POC | | PDT | infarction involving | results section. | | | | | left main coronary | | | | | | artery (HCC) | | + +--------+ + + + | CAPILLARY BLOOD | Routin | 03/20/2017 | ST elevation | Results for this | | GLUCOSE (NO CHG), | e | 4:59 PM | myocardial | procedure are in the | | POC | | PDT | infarction involving | results section. | | | | | left main coronary | | | | | | artery (HCC) | | + +--------+ + + + | POTASSIUM, PLASMA | Urgent | 03/20/2017 | | Results for this | | | | 4:55 PM | | procedure are in the | | | | PDT | | results section. | + +--------+ + + + | CAPILLARY BLOOD | Routin | 03/20/2017 | ST elevation | Results for this | | GLUCOSE (NO CHG), | e | 4:00 PM | myocardial | procedure are in the | | POC | | PDT | infarction involving | results section. | | | | | left main coronary | | | | | | artery (HCC) | | + +--------+ + + + | CAPILLARY BLOOD | Routin | 03/20/2017 | ST elevation | Results for this | | GLUCOSE (NO CHG), | e | 3:14 PM | myocardial | procedure are in the | | POC | | PDT | infarction involving | results section. | | | | | left main coronary | | | | | | artery (HCC) | | + +--------+ + + + | HEPARIN, EITHER | Urgent | 03/20/2017 | | Results for this | | STANDARD / LMW, | | 2:08 PM | | procedure are in the | | BLOOD | | PDT | | results section. | + +--------+ + + + | CAPILLARY BLOOD | Routin | 03/20/2017 | ST elevation | Results for this | | GLUCOSE (NO CHG), | e | 1:26 PM | myocardial | procedure are in the | | POC | | PDT | infarction involving | results section. | | | | | left main coronary | | | | | | artery (HCC) | | + +--------+ + + + | X-RAY ABD LTD | Routin | 03/20/2017 | | Results for this | | FEEDING TUBE EVAL | e | 1:18 PM | | procedure are in the | | | | PDT | | results section. | + +--------+ + + + | CAPILLARY BLOOD | Routin | 03/20/2017 | ST elevation | Results for this | | GLUCOSE (NO CHG), | e | 12:06 PM | myocardial | procedure are in the | | POC | | PDT | infarction involving | results section. | | | | | left main coronary | | | | | | artery (HCC) | | + +--------+ + + + | CAPILLARY BLOOD | Routin | 03/20/2017 | ST elevation | Results for this | | GLUCOSE (NO CHG), | e | 11:03 AM | myocardial | procedure are in the | | POC | | PDT | infarction involving | results section. | | | | | left main coronary | | | | | | artery (HCC) | | + +--------+ + + + | CAPILLARY BLOOD | Routin | 03/20/2017 | ST elevation | Results for this | | GLUCOSE (NO CHG), | e | 10:23 AM | myocardial | procedure are in the | | POC | | PDT | infarction involving | results section. | | | | | left main coronary | | | | | | artery (HCC) | | + +--------+ + + + | CAPILLARY BLOOD | Routin | 03/20/2017 | ST elevation | Results for this | | GLUCOSE (NO CHG), | e | 9:08 AM | myocardial | procedure are in the | | POC | | PDT | infarction involving | results section. | | | | | left main coronary | | | | | | artery (HCC) | | + +--------+ + + + | CAPILLARY BLOOD | Routin | 03/20/2017 | ST elevation | Results for this | | GLUCOSE (NO CHG), | e | 8:19 AM | myocardial | procedure are in the | | POC | | PDT | infarction involving | results section. | | | | | left main coronary | | | | | | artery (HCC) | | + +--------+ + + + | HEPARIN, EITHER | Urgent | 03/20/2017 | | Results for this | | STANDARD / LMW, | | 7:00 AM | | procedure are in the | | BLOOD | | PDT | | results section. | + +--------+ + + + | POTASSIUM, PLASMA | Urgent | 03/20/2017 | | Results for this | | | | 7:00 AM | | procedure are in the | | | | PDT | | results section. | + +--------+ + + + | CK, PLASMA | Urgent | 03/20/2017 | | Results for this | | | | 7:00 AM | | procedure are in the | | | | PDT | | results section. | + +--------+ + + + | CAPILLARY BLOOD | Routin | 03/20/2017 | ST elevation | Results for this | | GLUCOSE (NO CHG), | e | 6:54 AM | myocardial | procedure are in the | | POC | | PDT | infarction involving | results section. | | | | | left main coronary | | | | | | artery (HCC) | | + +--------+ + + + | X-RAY PORTABLE CHEST | Routin | 03/20/2017 | | Results for this | | 1 VIEW | e | 6:33 AM | | procedure are in the | | | | PDT | | results section. | + +--------+ + + + | CAPILLARY BLOOD | Routin | 03/20/2017 | ST elevation | Results for this | | GLUCOSE (NO CHG), | e | 4:59 AM | myocardial | procedure are in the | | POC | | PDT | infarction involving | results section. | | | | | left main coronary | | | | | | artery (HCC) | | + +--------+ + + + | CAPILLARY BLOOD | Routin | 03/20/2017 | ST elevation | Results for this | | GLUCOSE (NO CHG), | e | 3:57 AM | myocardial | procedure are in the | | POC | | PDT | infarction involving | results section. | | | | | left main coronary | | | | | | artery (HCC) | | + +--------+ + + + | CAPILLARY BLOOD | Routin | 03/20/2017 | ST elevation | Results for this | | GLUCOSE (NO CHG), | e | 3:01 AM | myocardial | procedure are in the | | POC | | PDT | infarction involving | results section. | | | | | left main coronary | | | | | | artery (HCC) | | + +--------+ + + + | CAPILLARY BLOOD | Routin | 03/20/2017 | ST elevation | Results for this | | GLUCOSE (NO CHG), | e | 1:56 AM | myocardial | procedure are in the | | POC | | PDT | infarction involving | results section. | | | | | left main coronary | | | | | | artery (HCC) | | + +--------+ + + + | CBC AND AUTO DIFF | Urgent | 03/20/2017 | | Results for this | | | | 1:00 AM | | procedure are in the | | | | PDT | | results section. | + +--------+ + + + | HEPARIN, EITHER | Urgent | 03/20/2017 | | Results for this | | STANDARD / LMW, | | 1:00 AM | | procedure are in the | | BLOOD | | PDT | | results section. | + +--------+ + + + | CBC, WITH | Urgent | 03/20/2017 | | Results for this | | DIFFERENTIAL | | 1:00 AM | | procedure are in the | | | | PDT | | results section. | + +--------+ + + + | RENAL FUNCTION SET | Urgent | 03/20/2017 | | Results for this | | (NA,K,CL,CO2,BUN,CRE | | 1:00 AM | | procedure are in the | | AT,GLUC,CA,PHOS,ALB | | PDT | | results section. | | ) | | | | | + +--------+ + + + | BLOOD GASES, | Routin | 03/20/2017 | | Results for this | | ARTERIAL - LAB | e | 1:00 AM | | procedure are in the | | | | PDT | | results section. | + +--------+ + + + | MAGNESIUM, PLASMA | Urgent | 03/20/2017 | | Results for this | | | | 1:00 AM | | procedure are in the | | | | PDT | | results section. | + +--------+ + + + | CAPILLARY BLOOD | Routin | 03/20/2017 | ST elevation | Results for this | | GLUCOSE (NO CHG), | e | 12:59 AM | myocardial | procedure are in the | | POC | | PDT | infarction involving | results section. | | | | | left main coronary | | | | | | artery (HCC) | | + +--------+ + + + | CAPILLARY BLOOD | Routin | 03/20/2017 | ST elevation | Results for this | | GLUCOSE (NO CHG), | e | 12:08 AM | myocardial | procedure are in the | | POC | | PDT | infarction involving | results section. | | | | | left main coronary | | | | | | artery (HCC) | | + +--------+ + + + | CO-OXIMETER PANEL, | Urgent | 03/19/2017 | | Results for this | | BLOOD | | 11:18 PM | | procedure are in the | | | | PDT | | results section. | + +--------+ + + + | CAPILLARY BLOOD | Routin | 03/19/2017 | ST elevation | Results for this | | GLUCOSE (NO CHG), | e | 11:02 PM | myocardial | procedure are in the | | POC | | PDT | infarction involving | results section. | | | | | left main coronary | | | | | | artery (HCC) | | + +--------+ + + + | CAPILLARY BLOOD | Routin | 03/19/2017 | ST elevation | Results for this | | GLUCOSE (NO CHG), | e | 10:03 PM | myocardial | procedure are in the | | POC | | PDT | infarction involving | results section. | | | | | left main coronary | | | | | | artery (HCC) | | + +--------+ + + + | C. DIFFICILE TOXIN, | Routin | 03/19/2017 | | Results for this | | W/REFLEX | e | 9:12 PM | | procedure are in the | | CONFIRMATION IF | | PDT | | results section. | | INDETERMINATE | | | | | | RESULTS | | | | | + +--------+ + + + | CAPILLARY BLOOD | Routin | 03/19/2017 | ST elevation | Results for this | | GLUCOSE (NO CHG), | e | 8:02 PM | myocardial | procedure are in the | | POC | | PDT | infarction involving | results section. | | | | | left main coronary | | | | | | artery (HCC) | | + +--------+ + + + | CBC (HEMOGRAM) ONLY | Urgent | 03/19/2017 | | Results for this | | | | 7:59 PM | | procedure are in the | | | | PDT | | results section. | + +--------+ + + + | CBC ONLY | Urgent | 03/19/2017 | | Results for this | | | | 7:59 PM | | procedure are in the | | | | PDT | | results section. | + +--------+ + + + | CAPILLARY BLOOD | Routin | 03/19/2017 | ST elevation | Results for this | | GLUCOSE (NO CHG), | e | 7:21 PM | myocardial | procedure are in the | | POC | | PDT | infarction involving | results section. | | | | | left main coronary | | | | | | artery (HCC) | | + +--------+ + + + | CO-OXIMETER PANEL, | Urgent | 03/19/2017 | | Results for this | | BLOOD | | 6:30 PM | | procedure are in the | | | | PDT | | results section. | + +--------+ + + + | HEPARIN, EITHER | Urgent | 03/19/2017 | | Results for this | | STANDARD / LMW, | | 6:16 PM | | procedure are in the | | BLOOD | | PDT | | results section. | + +--------+ + + + | CAPILLARY BLOOD | Routin | 03/19/2017 | ST elevation | Results for this | | GLUCOSE (NO CHG), | e | 6:11 PM | myocardial | procedure are in the | | POC | | PDT | infarction involving | results section. | | | | | left main coronary | | | | | | artery (HCC) | | + +--------+ + + + | POTASSIUM, PLASMA | Urgent | 03/19/2017 | | Results for this | | | | 5:45 PM | | procedure are in the | | | | PDT | | results section. | + +--------+ + + + | COAGULOPATHY PANEL | Urgent | 03/19/2017 | | Results for this | | (INR,APTT,FIBRINOGEN | | 5:45 PM | | procedure are in the | | ) | | PDT | | results section. | + +--------+ + + + | BLOOD GASES, | Routin | 03/19/2017 | | Results for this | | ARTERIAL - LAB | e | 5:45 PM | | procedure are in the | | | | PDT | | results section. | + +--------+ + + + | MAGNESIUM, PLASMA | Urgent | 03/19/2017 | | Results for this | | | | 5:45 PM | | procedure are in the | | | | PDT | | results section. | + +--------+ + + + | CAPILLARY BLOOD | Routin | 03/19/2017 | ST elevation | Results for this | | GLUCOSE (NO CHG), | e | 5:06 PM | myocardial | procedure are in the | | POC | | PDT | infarction involving | results section. | | | | | left main coronary | | | | | | artery (HCC) | | + +--------+ + + + | CAPILLARY BLOOD | Routin | 03/19/2017 | ST elevation | Results for this | | GLUCOSE (NO CHG), | e | 4:11 PM | myocardial | procedure are in the | | POC | | PDT | infarction involving | results section. | | | | | left main coronary | | | | | | artery (HCC) | | + +--------+ + + + | CAPILLARY BLOOD | Routin | 03/19/2017 | ST elevation | Results for this | | GLUCOSE (NO CHG), | e | 2:59 PM | myocardial | procedure are in the | | POC | | PDT | infarction involving | results section. | | | | | left main coronary | | | | | | artery (HCC) | | + +--------+ + + + | VANCOMYCIN, TROUGH | Urgent | 03/19/2017 | | Results for this | | | | 1:53 PM | | procedure are in the | | | | PDT | | results section. | + +--------+ + + + | 12 LEAD ECG | Routin | 03/19/2017 | | Results for this | | | e | 1:11 PM | | procedure are in the | | | | PDT | | results section. | + +--------+ + + + | CAPILLARY BLOOD | Routin | 03/19/2017 | ST elevation | Results for this | | GLUCOSE (NO CHG), | e | 1:05 PM | myocardial | procedure are in the | | POC | | PDT | infarction involving | results section. | | | | | left main coronary | | | | | | artery (HCC) | | + +--------+ + + + | KZ-NO-LVM-HB,POC RT | Routin | 03/19/2017 | ST elevation | Results for this | | | e | 1:04 PM | myocardial | procedure are in the | | | | PDT | infarction involving | results section. | | | | | left main coronary | | | | | | artery (HCC) | | + +--------+ + + + | PRODUCT - RED CELLS | Routin | 03/19/2017 | | Results for this | | LEUKOREDUCED | e | 1:03 PM | | procedure are in the | | | | PDT | | results section. | + +--------+ + + + | PRODUCT - RED CELLS | Routin | 03/19/2017 | | Results for this | | LEUKOREDUCED | e | 1:03 PM | | procedure are in the | | | | PDT | | results section. | + +--------+ + + + | PRODUCT - RED CELLS | Routin | 03/19/2017 | | Results for this | | LEUKOREDUCED | e | 1:03 PM | | procedure are in the | | | | PDT | | results section. | + +--------+ + + + | PRODUCT - RED CELLS | Routin | 03/19/2017 | | Results for this | | LEUKOREDUCED | e | 1:03 PM | | procedure are in the | | | | PDT | | results section. | + +--------+ + + + | CBC (HEMOGRAM) ONLY | Urgent | 03/19/2017 | | Results for this | | | | 1:00 PM | | procedure are in the | | | | PDT | | results section. | + +--------+ + + + | RENAL FUNCTION SET | Urgent | 03/19/2017 | | Results for this | | (NA,K,CL,CO2,BUN,CRE | | 1:00 PM | | procedure are in the | | AT,GLUC,CA,PHOS,ALB | | PDT | | results section. | | ) | | | | | + +--------+ + + + | CBC ONLY | Urgent | 03/19/2017 | | Results for this | | | | 1:00 PM | | procedure are in the | | | | PDT | | results section. | + +--------+ + + + | COAGULOPATHY PANEL | Urgent | 03/19/2017 | | Results for this | | (INR,APTT,FIBRINOGEN | | 1:00 PM | | procedure are in the | | ) | | PDT | | results section. | + +--------+ + + + | MAGNESIUM, PLASMA | Urgent | 03/19/2017 | | Results for this | | | | 1:00 PM | | procedure are in the | | | | PDT | | results section. | + +--------+ + + + | AL ECMO REV | Routin | 03/19/2017 | | Results for this | | (EXT)AND/OR | e | 12:36 PM | | procedure are in the | | DECANNULATION | | PDT | | results section. | + +--------+ + + + | ABG-FULL ABL, POC | Routin | 03/19/2017 | ST elevation | Results for this | | | e | 12:14 PM | myocardial | procedure are in the | | | | PDT | infarction involving | results section. | | | | | left main coronary | | | | | | artery (HCC) | | + +--------+ + + + | ABG-FULL ABL, POC | Routin | 03/19/2017 | ST elevation | Results for this | | | e | 11:27 AM | myocardial | procedure are in the | | | | PDT | infarction involving | results section. | | | | | left main coronary | | | | | | artery (HCC) | | + +--------+ + + + | CARDIAC ECMO | Electi | 03/19/2017 | CARDIOGENIC SHOCK | | | PROCEDURES(SOR ONLY) | ve | 10:40 AM | ON ECMO | | | | Surgic | PDT | | | | | al | | | | + +--------+ + + + +---+--------+ | | | | | Specia | | | l | | | Needs | | | ICU | | | POST- | | | CMICU | | | TEAM | +---+--------+ + +--------+ + + + | UI-WW-AOE-HB,POC RT | Routin | 03/19/2017 | ST elevation | Results for this | | | e | 10:24 AM | myocardial | procedure are in the | | | | PDT | infarction involving | results section. | | | | | left main coronary | | | | | | artery (HCC) | | + +--------+ + + + | CAPILLARY BLOOD | Routin | 03/19/2017 | ST elevation | Results for this | | GLUCOSE (NO CHG), | e | 10:08 AM | myocardial | procedure are in the | | POC | | PDT | infarction involving | results section. | | | | | left main coronary | | | | | | artery (HCC) | | + +--------+ + + + | TJ-AN-GWA-HB,POC RT | Routin | 03/19/2017 | ST elevation | Results for this | | | e | 10:06 AM | myocardial | procedure are in the | | | | PDT | infarction involving | results section. | | | | | left main coronary | | | | | | artery (HCC) | | + +--------+ + + + | BM-DA-QQP-HB,POC RT | Routin | 03/19/2017 | ST elevation | Results for this | | | e | 9:51 AM | myocardial | procedure are in the | | | | PDT | infarction involving | results section. | | | | | left main coronary | | | | | | artery (HCC) | | + +--------+ + + + | PRODUCT - RED CELLS | Routin | 03/19/2017 | | Results for this | | LEUKOREDUCED | e | 9:21 AM | | procedure are in the | | | | PDT | | results section. | + +--------+ + + + | PRODUCT - RED CELLS | Routin | 03/19/2017 | | Results for this | | LEUKOREDUCED | e | 9:21 AM | | procedure are in the | | | | PDT | | results section. | + +--------+ + + + | PRODUCT - RED CELLS | Routin | 03/19/2017 | | Results for this | | LEUKOREDUCED | e | 9:21 AM | | procedure are in the | | | | PDT | | results section. | + +--------+ + + + | PRODUCT - RED CELLS | Routin | 03/19/2017 | | Results for this | | LEUKOREDUCED | e | 9:21 AM | | procedure are in the | | | | PDT | | results section. | + +--------+ + + + | X-RAY PORTABLE CHEST | Routin | 03/19/2017 | | Results for this | | 1 VIEW | e | 9:13 AM | | procedure are in the | | | | PDT | | results section. | + +--------+ + + + | CAPILLARY BLOOD | Routin | 03/19/2017 | ST elevation | Results for this | | GLUCOSE (NO CHG), | e | 8:59 AM | myocardial | procedure are in the | | POC | | PDT | infarction involving | results section. | | | | | left main coronary | | | | | | artery (HCC) | | + +--------+ + + + | CAPILLARY BLOOD | Routin | 03/19/2017 | ST elevation | Results for this | | GLUCOSE (NO CHG), | e | 8:04 AM | myocardial | procedure are in the | | POC | | PDT | infarction involving | results section. | | | | | left main coronary | | | | | | artery (HCC) | | + +--------+ + + + | CK, PLASMA | Urgent | 03/19/2017 | | Results for this | | | | 7:03 AM | | procedure are in the | | | | PDT | | results section. | + +--------+ + + + | CAPILLARY BLOOD | Routin | 03/19/2017 | ST elevation | Results for this | | GLUCOSE (NO CHG), | e | 7:02 AM | myocardial | procedure are in the | | POC | | PDT | infarction involving | results section. | | | | | left main coronary | | | | | | artery (HCC) | | + +--------+ + + + | CAPILLARY BLOOD | Routin | 03/19/2017 | ST elevation | Results for this | | GLUCOSE (NO CHG), | e | 6:09 AM | myocardial | procedure are in the | | POC | | PDT | infarction involving | results section. | | | | | left main coronary | | | | | | artery (HCC) | | + +--------+ + + + | CAPILLARY BLOOD | Routin | 03/19/2017 | ST elevation | Results for this | | GLUCOSE (NO CHG), | e | 5:03 AM | myocardial | procedure are in the | | POC | | PDT | infarction involving | results section. | | | | | left main coronary | | | | | | artery (HCC) | | + +--------+ + + + | CAPILLARY BLOOD | Routin | 03/19/2017 | ST elevation | Results for this | | GLUCOSE (NO CHG), | e | 4:03 AM | myocardial | procedure are in the | | POC | | PDT | infarction involving | results section. | | | | | left main coronary | | | | | | artery (HCC) | | + +--------+ + + + | HEPARIN, EITHER | Urgent | 03/19/2017 | | Results for this | | STANDARD / LMW, | | 4:00 AM | | procedure are in the | | BLOOD | | PDT | | results section. | + +--------+ + + + | CAPILLARY BLOOD | Routin | 03/19/2017 | ST elevation | Results for this | | GLUCOSE (NO CHG), | e | 3:08 AM | myocardial | procedure are in the | | POC | | PDT | infarction involving | results section. | | | | | left main coronary | | | | | | artery (HCC) | | + +--------+ + + + | CAPILLARY BLOOD | Routin | 03/19/2017 | ST elevation | Results for this | | GLUCOSE (NO CHG), | e | 2:06 AM | myocardial | procedure are in the | | POC | | PDT | infarction involving | results section. | | | | | left main coronary | | | | | | artery (HCC) | | + +--------+ + + + | CAPILLARY BLOOD | Routin | 03/19/2017 | ST elevation | Results for this | | GLUCOSE (NO CHG), | e | 1:19 AM | myocardial | procedure are in the | | POC | | PDT | infarction involving | results section. | | | | | left main coronary | | | | | | artery (HCC) | | + +--------+ + + + | THROMBELASTOGRAPH, | Routin | 03/19/2017 | | Results for this | | POC | e | 1:12 AM | | procedure are in the | | | | PDT | | results section. | + +--------+ + + + | BLOOD GASES, | Routin | 03/19/2017 | | Results for this | | ARTERIAL - LAB | e | 1:12 AM | | procedure are in the | | | | PDT | | results section. | + +--------+ + + + | HEMOGLOBIN, PLASMA | Urgent | 03/19/2017 | | Results for this | | FREE | | 1:11 AM | | procedure are in the | | | | PDT | | results section. | + +--------+ + + + | CBC AND AUTO DIFF | Urgent | 03/19/2017 | | Results for this | | | | 1:11 AM | | procedure are in the | | | | PDT | | results section. | + +--------+ + + + | CBC, WITH | Urgent | 03/19/2017 | | Results for this | | DIFFERENTIAL | | 1:11 AM | | procedure are in the | | | | PDT | | results section. | + +--------+ + + + | RENAL FUNCTION SET | Urgent | 03/19/2017 | | Results for this | | (NA,K,CL,CO2,BUN,CRE | | 1:11 AM | | procedure are in the | | AT,GLUC,CA,PHOS,ALB | | PDT | | results section. | | ) | | | | | + +--------+ + + + | COAGULOPATHY PANEL | Urgent | 03/19/2017 | | Results for this | | (INR,APTT,FIBRINOGEN | | 1:11 AM | | procedure are in the | | ) | | PDT | | results section. | + +--------+ + + + | LACTATE | Urgent | 03/19/2017 | | Results for this | | | | 1:11 AM | | procedure are in the | | | | PDT | | results section. | + +--------+ + + + | BLOOD GASES, VENOUS | Urgent | 03/19/2017 | | Results for this | | - LAB | | 1:11 AM | | procedure are in the | | | | PDT | | results section. | + +--------+ + + + | MAGNESIUM, PLASMA | Urgent | 03/19/2017 | | Results for this | | | | 1:11 AM | | procedure are in the | | | | PDT | | results section. | + +--------+ + + + | LDH TOTAL, PLASMA | Urgent | 03/19/2017 | | Results for this | | | | 1:11 AM | | procedure are in the | | | | PDT | | results section. | + +--------+ + + + | BLOOD GASES, | Routin | 03/19/2017 | | Results for this | | ARTERIAL - LAB | e | 1:10 AM | | procedure are in the | | | | PDT | | results section. | + +--------+ + + + | CAPILLARY BLOOD | Routin | 03/19/2017 | ST elevation | Results for this | | GLUCOSE (NO CHG), | e | 12:15 AM | myocardial | procedure are in the | | POC | | PDT | infarction involving | results section. | | | | | left main coronary | | | | | | artery (HCC) | | + +--------+ + + + | LAB REPORTS | | 03/19/2017 | | Results for this | | | | 12:00 AM | | procedure are in the | | | | PDT | | results section. | + +--------+ + + + | POTASSIUM, PLASMA | Urgent | 03/18/2017 | | Results for this | | | | 11:08 PM | | procedure are in the | | | | PDT | | results section. | + +--------+ + + + | CAPILLARY BLOOD | Routin | 03/18/2017 | ST elevation | Results for this | | GLUCOSE (NO CHG), | e | 11:07 PM | myocardial | procedure are in the | | POC | | PDT | infarction involving | results section. | | | | | left main coronary | | | | | | artery (HCC) | | + +--------+ + + + | CAPILLARY BLOOD | Routin | 03/18/2017 | ST elevation | Results for this | | GLUCOSE (NO CHG), | e | 10:02 PM | myocardial | procedure are in the | | POC | | PDT | infarction involving | results section. | | | | | left main coronary | | | | | | artery (HCC) | | + +--------+ + + + | HEPARIN, EITHER | Urgent | 03/18/2017 | | Results for this | | STANDARD / LMW, | | 9:58 PM | | procedure are in the | | BLOOD | | PDT | | results section. | + +--------+ + + + | CAPILLARY BLOOD | Routin | 03/18/2017 | ST elevation | Results for this | | GLUCOSE (NO CHG), | e | 9:04 PM | myocardial | procedure are in the | | POC | | PDT | infarction involving | results section. | | | | | left main coronary | | | | | | artery (HCC) | | + +--------+ + + + | CAPILLARY BLOOD | Routin | 03/18/2017 | ST elevation | Results for this | | GLUCOSE (NO CHG), | e | 7:58 PM | myocardial | procedure are in the | | POC | | PDT | infarction involving | results section. | | | | | left main coronary | | | | | | artery (HCC) | | + +--------+ + + + | CAPILLARY BLOOD | Routin | 03/18/2017 | ST elevation | Results for this | | GLUCOSE (NO CHG), | e | 6:32 PM | myocardial | procedure are in the | | POC | | PDT | infarction involving | results section. | | | | | left main coronary | | | | | | artery (HCC) | | + +--------+ + + + | POTASSIUM, PLASMA | Urgent | 03/18/2017 | | Results for this | | | | 6:30 PM | | procedure are in the | | | | PDT | | results section. | + +--------+ + + + | MAGNESIUM, PLASMA | Urgent | 03/18/2017 | | Results for this | | | | 6:30 PM | | procedure are in the | | | | PDT | | results section. | + +--------+ + + + | CAPILLARY BLOOD | Routin | 03/18/2017 | ST elevation | Results for this | | GLUCOSE (NO CHG), | e | 5:26 PM | myocardial | procedure are in the | | POC | | PDT | infarction involving | results section. | | | | | left main coronary | | | | | | artery (HCC) | | + +--------+ + + + | HEPARIN, EITHER | Urgent | 03/18/2017 | | Results for this | | STANDARD / LMW, | | 4:45 PM | | procedure are in the | | BLOOD | | PDT | | results section. | + +--------+ + + + | CAPILLARY BLOOD | Routin | 03/18/2017 | ST elevation | Results for this | | GLUCOSE (NO CHG), | e | 4:22 PM | myocardial | procedure are in the | | POC | | PDT | infarction involving | results section. | | | | | left main coronary | | | | | | artery (HCC) | | + +--------+ + + + | CAPILLARY BLOOD | Routin | 03/18/2017 | ST elevation | Results for this | | GLUCOSE (NO CHG), | e | 3:15 PM | myocardial | procedure are in the | | POC | | PDT | infarction involving | results section. | | | | | left main coronary | | | | | | artery (HCC) | | + +--------+ + + + | TRIGLYCERIDES, | Urgent | 03/18/2017 | | Results for this | | PLASMA | | 2:30 PM | | procedure are in the | | | | PDT | | results section. | + +--------+ + + + | CK, PLASMA | Urgent | 03/18/2017 | | Results for this | | | | 2:30 PM | | procedure are in the | | | | PDT | | results section. | + +--------+ + + + | CAPILLARY BLOOD | Routin | 03/18/2017 | ST elevation | Results for this | | GLUCOSE (NO CHG), | e | 2:11 PM | myocardial | procedure are in the | | POC | | PDT | infarction involving | results section. | | | | | left main coronary | | | | | | artery (HCC) | | + +--------+ + + + | CAPILLARY BLOOD | Routin | 03/18/2017 | ST elevation | Results for this | | GLUCOSE (NO CHG), | e | 1:07 PM | myocardial | procedure are in the | | POC | | PDT | infarction involving | results section. | | | | | left main coronary | | | | | | artery (HCC) | | + +--------+ + + + | LACTATE | Routin | 03/18/2017 | | Results for this | | | e | 1:00 PM | | procedure are in the | | | | PDT | | results section. | + +--------+ + + + | BLOOD GASES, | Routin | 03/18/2017 | | Results for this | | ARTERIAL - LAB | e | 1:00 PM | | procedure are in the | | | | PDT | | results section. | + +--------+ + + + | BLOOD GASES, VENOUS | Urgent | 03/18/2017 | | Results for this | | - LAB | | 1:00 PM | | procedure are in the | | | | PDT | | results section. | + +--------+ + + + | CBC (HEMOGRAM) ONLY | Urgent | 03/18/2017 | | Results for this | | | | 12:59 PM | | procedure are in the | | | | PDT | | results section. | + +--------+ + + + | RENAL FUNCTION SET | Routin | 03/18/2017 | | Results for this | | (NA,K,CL,CO2,BUN,CRE | e | 12:59 PM | | procedure are in the | | AT,GLUC,CA,PHOS,ALB | | PDT | | results section. | | ) | | | | | + +--------+ + + + | CBC ONLY | Urgent | 03/18/2017 | | Results for this | | | | 12:59 PM | | procedure are in the | | | | PDT | | results section. | + +--------+ + + + | COAGULOPATHY PANEL | Urgent | 03/18/2017 | | Results for this | | (INR,APTT,FIBRINOGEN | | 12:59 PM | | procedure are in the | | ) | | PDT | | results section. | + +--------+ + + + | BLOOD GASES, | Routin | 03/18/2017 | | Results for this | | ARTERIAL - LAB | e | 12:59 PM | | procedure are in the | | | | PDT | | results section. | + +--------+ + + + | MAGNESIUM, PLASMA | Urgent | 03/18/2017 | | Results for this | | | | 12:59 PM | | procedure are in the | | | | PDT | | results section. | + +--------+ + + + | CAPILLARY BLOOD | Routin | 03/18/2017 | ST elevation | Results for this | | GLUCOSE (NO CHG), | e | 12:08 PM | myocardial | procedure are in the | | POC | | PDT | infarction involving | results section. | | | | | left main coronary | | | | | | artery (HCC) | | + +--------+ + + + | CAPILLARY BLOOD | Routin | 03/18/2017 | ST elevation | Results for this | | GLUCOSE (NO CHG), | e | 11:02 AM | myocardial | procedure are in the | | POC | | PDT | infarction involving | results section. | | | | | left main coronary | | | | | | artery (HCC) | | + +--------+ + + + | BLOOD GASES, | Routin | 03/18/2017 | | Results for this | | ARTERIAL - LAB | e | 11:00 AM | | procedure are in the | | | | PDT | | results section. | + +--------+ + + + | PROCEDURE NOTE | Routin | 03/18/2017 | | Results for this | | | e | 10:56 AM | | procedure are in the | | | | PDT | | results section. | + +--------+ + + + | CAPILLARY BLOOD | Routin | 03/18/2017 | ST elevation | Results for this | | GLUCOSE (NO CHG), | e | 10:04 AM | myocardial | procedure are in the | | POC | | PDT | infarction involving | results section. | | | | | left main coronary | | | | | | artery (HCC) | | + +--------+ + + + | HEPARIN, EITHER | Urgent | 03/18/2017 | | Results for this | | STANDARD / LMW, | | 10:00 AM | | procedure are in the | | BLOOD | | PDT | | results section. | + +--------+ + + + | BLOOD GASES, | Routin | 03/18/2017 | | Results for this | | ARTERIAL - LAB | e | 10:00 AM | | procedure are in the | | | | PDT | | results section. | + +--------+ + + + | CULTURE, SPUTUM | Urgent | 03/18/2017 | | Results for this | | | | 9:28 AM | | procedure are in the | | | | PDT | | results section. | + +--------+ + + + | CAPILLARY BLOOD | Routin | 03/18/2017 | ST elevation | Results for this | | GLUCOSE (NO CHG), | e | 9:15 AM | myocardial | procedure are in the | | POC | | PDT | infarction involving | results section. | | | | | left main coronary | | | | | | artery (HCC) | | + +--------+ + + + | CAPILLARY BLOOD | Routin | 03/18/2017 | ST elevation | Results for this | | GLUCOSE (NO CHG), | e | 8:11 AM | myocardial | procedure are in the | | POC | | PDT | infarction involving | results section. | | | | | left main coronary | | | | | | artery (HCC) | | + +--------+ + + + | CBC (HEMOGRAM) ONLY | Urgent | 03/18/2017 | | Results for this | | | | 8:08 AM | | procedure are in the | | | | PDT | | results section. | + +--------+ + + + | POTASSIUM, PLASMA | Urgent | 03/18/2017 | | Results for this | | | | 8:08 AM | | procedure are in the | | | | PDT | | results section. | + +--------+ + + + | CBC ONLY | Urgent | 03/18/2017 | | Results for this | | | | 8:08 AM | | procedure are in the | | | | PDT | | results section. | + +--------+ + + + | CAPILLARY BLOOD | Routin | 03/18/2017 | ST elevation | Results for this | | GLUCOSE (NO CHG), | e | 7:05 AM | myocardial | procedure are in the | | POC | | PDT | infarction involving | results section. | | | | | left main coronary | | | | | | artery (HCC) | | + +--------+ + + + | CAPILLARY BLOOD | Routin | 03/18/2017 | ST elevation | Results for this | | GLUCOSE (NO CHG), | e | 6:12 AM | myocardial | procedure are in the | | POC | | PDT | infarction involving | results section. | | | | | left main coronary | | | | | | artery (HCC) | | + +--------+ + + + | TRANSFUSE RED CELLS, | Routin | 03/18/2017 | | | | LEUKOREDUCED | e | 6:08 AM | | | | | | PDT | | | + +--------+ + + + | X-RAY PORTABLE CHEST | Routin | 03/18/2017 | | Results for this | | 1 VIEW | e | 6:05 AM | | procedure are in the | | | | PDT | | results section. | + +--------+ + + + | CAPILLARY BLOOD | Routin | 03/18/2017 | ST elevation | Results for this | | GLUCOSE (NO CHG), | e | 5:03 AM | myocardial | procedure are in the | | POC | | PDT | infarction involving | results section. | | | | | left main coronary | | | | | | artery (HCC) | | + +--------+ + + + | CAPILLARY BLOOD | Routin | 03/18/2017 | ST elevation | Results for this | | GLUCOSE (NO CHG), | e | 4:08 AM | myocardial | procedure are in the | | POC | | PDT | infarction involving | results section. | | | | | left main coronary | | | | | | artery (HCC) | | + +--------+ + + + | HEPARIN, EITHER | Urgent | 03/18/2017 | | Results for this | | STANDARD / LMW, | | 2:58 AM | | procedure are in the | | BLOOD | | PDT | | results section. | + +--------+ + + + | CAPILLARY BLOOD | Routin | 03/18/2017 | ST elevation | Results for this | | GLUCOSE (NO CHG), | e | 2:57 AM | myocardial | procedure are in the | | POC | | PDT | infarction involving | results section. | | | | | left main coronary | | | | | | artery (HCC) | | + +--------+ + + + | CAPILLARY BLOOD | Routin | 03/18/2017 | ST elevation | Results for this | | GLUCOSE (NO CHG), | e | 2:05 AM | myocardial | procedure are in the | | POC | | PDT | infarction involving | results section. | | | | | left main coronary | | | | | | artery (HCC) | | + +--------+ + + + | ANTIBODY SCREEN | Routin | 03/18/2017 | | Results for this | | | e | 2:02 AM | | procedure are in the | | | | PDT | | results section. | + +--------+ + + + | TYPE AND SCREEN | Routin | 03/18/2017 | | Results for this | | | e | 2:02 AM | | procedure are in the | | | | PDT | | results section. | + +--------+ + + + | ABO & RH TYPE | Routin | 03/18/2017 | | Results for this | | | e | 2:02 AM | | procedure are in the | | | | PDT | | results section. | + +--------+ + + + | PRODUCT - RED CELLS | Routin | 03/18/2017 | | Results for this | | LEUKOREDUCED | e | 1:59 AM | | procedure are in the | | | | PDT | | results section. | + +--------+ + + + | THROMBELASTOGRAPH, | Routin | 03/18/2017 | | Results for this | | POC | e | 1:36 AM | | procedure are in the | | | | PDT | | results section. | + +--------+ + + + | BLOOD GASES, | Routin | 03/18/2017 | | Results for this | | ARTERIAL - LAB | e | 1:20 AM | | procedure are in the | | | | PDT | | results section. | + +--------+ + + + | HEMOGLOBIN, PLASMA | Urgent | 03/18/2017 | | Results for this | | FREE | | 1:19 AM | | procedure are in the | | | | PDT | | results section. | + +--------+ + + + | CBC AND AUTO DIFF | Urgent | 03/18/2017 | | Results for this | | | | 1:19 AM | | procedure are in the | | | | PDT | | results section. | + +--------+ + + + | CBC, WITH | Urgent | 03/18/2017 | | Results for this | | DIFFERENTIAL | | 1:19 AM | | procedure are in the | | | | PDT | | results section. | + +--------+ + + + | RENAL FUNCTION SET | Urgent | 03/18/2017 | | Results for this | | (NA,K,CL,CO2,BUN,CRE | | 1:19 AM | | procedure are in the | | AT,GLUC,CA,PHOS,ALB | | PDT | | results section. | | ) | | | | | + +--------+ + + + | COAGULOPATHY PANEL | Urgent | 03/18/2017 | | Results for this | | (INR,APTT,FIBRINOGEN | | 1:19 AM | | procedure are in the | | ) | | PDT | | results section. | + +--------+ + + + | BLOOD GASES, VENOUS | Urgent | 03/18/2017 | | Results for this | | - LAB | | 1:19 AM | | procedure are in the | | | | PDT | | results section. | + +--------+ + + + | MAGNESIUM, PLASMA | Urgent | 03/18/2017 | | Results for this | | | | 1:19 AM | | procedure are in the | | | | PDT | | results section. | + +--------+ + + + | BLOOD GASES, | Routin | 03/18/2017 | | Results for this | | ARTERIAL - LAB | e | 1:18 AM | | procedure are in the | | | | PDT | | results section. | + +--------+ + + + | CAPILLARY BLOOD | Routin | 03/18/2017 | ST elevation | Results for this | | GLUCOSE (NO CHG), | e | 1:07 AM | myocardial | procedure are in the | | POC | | PDT | infarction involving | results section. | | | | | left main coronary | | | | | | artery (HCC) | | + +--------+ + + + | CULTURE, BLOOD BACTI | Urgent | 03/18/2017 | | Results for this | | & YEAST [facility] | | 12:48 AM | | procedure are in the | | | | PDT | | results section. | + +--------+ + + + | CULTURE, BLOOD BACTI | Urgent | 03/18/2017 | | Results for this | | & YEAST | | 12:48 AM | | procedure are in the | | | | PDT | | results section. | + +--------+ + + + | CULTURE, BLOOD BACTI | Urgent | 03/18/2017 | | Results for this | | & YEAST [facility] | | 12:46 AM | | procedure are in the | | | | PDT | | results section. | + +--------+ + + + | CULTURE, BLOOD BACTI | Urgent | 03/18/2017 | | Results for this | | & YEAST | | 12:46 AM | | procedure are in the | | | | PDT | | results section. | + +--------+ + + + | CAPILLARY BLOOD | Routin | 03/18/2017 | ST elevation | Results for this | | GLUCOSE (NO CHG), | e | 12:05 AM | myocardial | procedure are in the | | POC | | PDT | infarction involving | results section. | | | | | left main coronary | | | | | | artery (HCC) | | + +--------+ + + + | CAPILLARY BLOOD | Routin | 03/17/2017 | ST elevation | Results for this | | GLUCOSE (NO CHG), | e | 11:09 PM | myocardial | procedure are in the | | POC | | PDT | infarction involving | results section. | | | | | left main coronary | | | | | | artery (HCC) | | + +--------+ + + + | CAPILLARY BLOOD | Routin | 03/17/2017 | ST elevation | Results for this | | GLUCOSE (NO CHG), | e | 9:59 PM | myocardial | procedure are in the | | POC | | PDT | infarction involving | results section. | | | | | left main coronary | | | | | | artery (HCC) | | + +--------+ + + + | CAPILLARY BLOOD | Routin | 03/17/2017 | ST elevation | Results for this | | GLUCOSE (NO CHG), | e | 9:02 PM | myocardial | procedure are in the | | POC | | PDT | infarction involving | results section. | | | | | left main coronary | | | | | | artery (HCC) | | + +--------+ + + + | HEPARIN, EITHER | Urgent | 03/17/2017 | | Results for this | | STANDARD / LMW, | | 9:00 PM | | procedure are in the | | BLOOD | | PDT | | results section. | + +--------+ + + + | CAPILLARY BLOOD | Routin | 03/17/2017 | ST elevation | Results for this | | GLUCOSE (NO CHG), | e | 8:17 PM | myocardial | procedure are in the | | POC | | PDT | infarction involving | results section. | | | | | left main coronary | | | | | | artery (HCC) | | + +--------+ + + + | CBC (HEMOGRAM) ONLY | Urgent | 03/17/2017 | | Results for this | | | | 8:09 PM | | procedure are in the | | | | PDT | | results section. | + +--------+ + + + | CBC ONLY | Urgent | 03/17/2017 | | Results for this | | | | 8:09 PM | | procedure are in the | | | | PDT | | results section. | + +--------+ + + + | LACTATE | Urgent | 03/17/2017 | | Results for this | | | | 8:09 PM | | procedure are in the | | | | PDT | | results section. | + +--------+ + + + | BLOOD GASES, | Routin | 03/17/2017 | | Results for this | | ARTERIAL - LAB | e | 8:09 PM | | procedure are in the | | | | PDT | | results section. | + +--------+ + + + | LDH TOTAL, PLASMA | Urgent | 03/17/2017 | | Results for this | | | | 8:09 PM | | procedure are in the | | | | PDT | | results section. | + +--------+ + + + | CK, PLASMA | Urgent | 03/17/2017 | | Results for this | | | | 8:09 PM | | procedure are in the | | | | PDT | | results section. | + +--------+ + + + | CAPILLARY BLOOD | Routin | 03/17/2017 | ST elevation | Results for this | | GLUCOSE (NO CHG), | e | 7:27 PM | myocardial | procedure are in the | | POC | | PDT | infarction involving | results section. | | | | | left main coronary | | | | | | artery (HCC) | | + +--------+ + + + | CAPILLARY BLOOD | Routin | 03/17/2017 | ST elevation | Results for this | | GLUCOSE (NO CHG), | e | 6:23 PM | myocardial | procedure are in the | | POC | | PDT | infarction involving | results section. | | | | | left main coronary | | | | | | artery (HCC) | | + +--------+ + + + | BLOOD GASES, | Routin | 03/17/2017 | | Results for this | | ARTERIAL - LAB | e | 6:23 PM | | procedure are in the | | | | PDT | | results section. | + +--------+ + + + | TRANSFUSE RED CELLS, | Routin | 03/17/2017 | | | | LEUKOREDUCED | e | 5:58 PM | | | | | | PDT | | | + +--------+ + + + | CAPILLARY BLOOD | Routin | 03/17/2017 | ST elevation | Results for this | | GLUCOSE (NO CHG), | e | 5:07 PM | myocardial | procedure are in the | | POC | | PDT | infarction involving | results section. | | | | | left main coronary | | | | | | artery (HCC) | | + +--------+ + + + | CAPILLARY BLOOD | Routin | 03/17/2017 | ST elevation | Results for this | | GLUCOSE (NO CHG), | e | 4:00 PM | myocardial | procedure are in the | | POC | | PDT | infarction involving | results section. | | | | | left main coronary | | | | | | artery (HCC) | | + +--------+ + + + | PRODUCT - RED CELLS | Routin | 03/17/2017 | | Results for this | | LEUKOREDUCED | e | 3:19 PM | | procedure are in the | | | | PDT | | results section. | + +--------+ + + + | PRODUCT - RED CELLS | Routin | 03/17/2017 | | Results for this | | LEUKOREDUCED | e | 3:19 PM | | procedure are in the | | | | PDT | | results section. | + +--------+ + + + | CAPILLARY BLOOD | Routin | 03/17/2017 | ST elevation | Results for this | | GLUCOSE (NO CHG), | e | 2:36 PM | myocardial | procedure are in the | | POC | | PDT | infarction involving | results section. | | | | | left main coronary | | | | | | artery (HCC) | | + +--------+ + + + | CBC (HEMOGRAM) ONLY | Urgent | 03/17/2017 | | Results for this | | | | 2:27 PM | | procedure are in the | | | | PDT | | results section. | + +--------+ + + + | CBC ONLY | Urgent | 03/17/2017 | | Results for this | | | | 2:27 PM | | procedure are in the | | | | PDT | | results section. | + +--------+ + + + | HEPARIN, EITHER | Urgent | 03/17/2017 | | Results for this | | STANDARD / LMW, | | 2:23 PM | | procedure are in the | | BLOOD | | PDT | | results section. | + +--------+ + + + | RENAL FUNCTION SET | Urgent | 03/17/2017 | | Results for this | | (NA,K,CL,CO2,BUN,CRE | | 2:23 PM | | procedure are in the | | AT,GLUC,CA,PHOS,ALB | | PDT | | results section. | | ) | | | | | + +--------+ + + + | COAGULOPATHY PANEL | Urgent | 03/17/2017 | | Results for this | | (INR,APTT,FIBRINOGEN | | 2:23 PM | | procedure are in the | | ) | | PDT | | results section. | + +--------+ + + + | LACTATE | Urgent | 03/17/2017 | | Results for this | | | | 2:23 PM | | procedure are in the | | | | PDT | | results section. | + +--------+ + + + | BLOOD GASES, | Routin | 03/17/2017 | | Results for this | | ARTERIAL - LAB | e | 2:23 PM | | procedure are in the | | | | PDT | | results section. | + +--------+ + + + | BLOOD GASES, | Routin | 03/17/2017 | | Results for this | | ARTERIAL - LAB | e | 2:23 PM | | procedure are in the | | | | PDT | | results section. | + +--------+ + + + | BLOOD GASES, VENOUS | Urgent | 03/17/2017 | | Results for this | | - LAB | | 2:23 PM | | procedure are in the | | | | PDT | | results section. | + +--------+ + + + | CAPILLARY BLOOD | Routin | 03/17/2017 | ST elevation | Results for this | | GLUCOSE (NO CHG), | e | 1:33 PM | myocardial | procedure are in the | | POC | | PDT | infarction involving | results section. | | | | | left main coronary | | | | | | artery (HCC) | | + +--------+ + + + | BLOOD GASES, | Routin | 03/17/2017 | | Results for this | | ARTERIAL - LAB | e | 1:29 PM | | procedure are in the | | | | PDT | | results section. | + +--------+ + + + | CAPILLARY BLOOD | Routin | 03/17/2017 | ST elevation | Results for this | | GLUCOSE (NO CHG), | e | 12:41 PM | myocardial | procedure are in the | | POC | | PDT | infarction involving | results section. | | | | | left main coronary | | | | | | artery (HCC) | | + +--------+ + + + | VASC LAB ARTER | Routin | 03/17/2017 | | Results for this | | DUPLEX LOWER | e | 12:31 PM | | procedure are in the | | EXTREMITY RT | | PDT | | results section. | + +--------+ + + + | VASC LAB ABDOMINAL | Urgent | 03/17/2017 | | Results for this | | DUPLEX LTD ARTERY | | 12:31 PM | | procedure are in the | | VEIN | | PDT | | results section. | + +--------+ + + + | CAPILLARY BLOOD | Routin | 03/17/2017 | ST elevation | Results for this | | GLUCOSE (NO CHG), | e | 11:30 AM | myocardial | procedure are in the | | POC | | PDT | infarction involving | results section. | | | | | left main coronary | | | | | | artery (HCC) | | + +--------+ + + + | CK, PLASMA | Urgent | 03/17/2017 | | Results for this | | | | 11:03 AM | | procedure are in the | | | | PDT | | results section. | + +--------+ + + + | TRANSTHORACIC | Urgent | 03/17/2017 | | Results for this | | ECHOCARDIOGRAM, | | 10:30 AM | | procedure are in the | | ADULT | | PDT | | results section. | + +--------+ + + + | CAPILLARY BLOOD | Routin | 03/17/2017 | ST elevation | Results for this | | GLUCOSE (NO CHG), | e | 10:24 AM | myocardial | procedure are in the | | POC | | PDT | infarction involving | results section. | | | | | left main coronary | | | | | | artery (HCC) | | + +--------+ + + + | CAPILLARY BLOOD | Routin | 03/17/2017 | ST elevation | Results for this | | GLUCOSE (NO CHG), | e | 9:20 AM | myocardial | procedure are in the | | POC | | PDT | infarction involving | results section. | | | | | left main coronary | | | | | | artery (HCC) | | + +--------+ + + + | CBC (HEMOGRAM) ONLY | Urgent | 03/17/2017 | | Results for this | | | | 9:15 AM | | procedure are in the | | | | PDT | | results section. | + +--------+ + + + | HEPARIN, EITHER | Urgent | 03/17/2017 | | Results for this | | STANDARD / LMW, | | 9:15 AM | | procedure are in the | | BLOOD | | PDT | | results section. | + +--------+ + + + | CBC ONLY | Urgent | 03/17/2017 | | Results for this | | | | 9:15 AM | | procedure are in the | | | | PDT | | results section. | + +--------+ + + + | BLOOD GASES, | Routin | 03/17/2017 | | Results for this | | ARTERIAL - LAB | e | 9:15 AM | | procedure are in the | | | | PDT | | results section. | + +--------+ + + + | CAPILLARY BLOOD | Routin | 03/17/2017 | ST elevation | Results for this | | GLUCOSE (NO CHG), | e | 8:28 AM | myocardial | procedure are in the | | POC | | PDT | infarction involving | results section. | | | | | left main coronary | | | | | | artery (HCC) | | + +--------+ + + + | CAPILLARY BLOOD | Routin | 03/17/2017 | ST elevation | Results for this | | GLUCOSE (NO CHG), | e | 7:23 AM | myocardial | procedure are in the | | POC | | PDT | infarction involving | results section. | | | | | left main coronary | | | | | | artery (HCC) | | + +--------+ + + + | CAPILLARY BLOOD | Routin | 03/17/2017 | ST elevation | Results for this | | GLUCOSE (NO CHG), | e | 6:14 AM | myocardial | procedure are in the | | POC | | PDT | infarction involving | results section. | | | | | left main coronary | | | | | | artery (HCC) | | + +--------+ + + + | BLOOD GASES, | Routin | 03/17/2017 | | Results for this | | ARTERIAL - LAB | e | 6:12 AM | | procedure are in the | | | | PDT | | results section. | + +--------+ + + + | BLOOD GASES, | Routin | 03/17/2017 | | Results for this | | ARTERIAL - LAB | e | 6:11 AM | | procedure are in the | | | | PDT | | results section. | + +--------+ + + + | X-RAY PORTABLE CHEST | Routin | 03/17/2017 | | Results for this | | 1 VIEW | e | 5:37 AM | | procedure are in the | | | | PDT | | results section. | + +--------+ + + + | CAPILLARY BLOOD | Routin | 03/17/2017 | ST elevation | Results for this | | GLUCOSE (NO CHG), | e | 4:58 AM | myocardial | procedure are in the | | POC | | PDT | infarction involving | results section. | | | | | left main coronary | | | | | | artery (HCC) | | + +--------+ + + + | CBC AND AUTO DIFF | Urgent | 03/17/2017 | | Results for this | | | | 3:10 AM | | procedure are in the | | | | PDT | | results section. | + +--------+ + + + | CBC, WITH | Urgent | 03/17/2017 | | Results for this | | DIFFERENTIAL | | 3:10 AM | | procedure are in the | | | | PDT | | results section. | + +--------+ + + + | RENAL FUNCTION SET | Urgent | 03/17/2017 | | Results for this | | (NA,K,CL,CO2,BUN,CRE | | 3:10 AM | | procedure are in the | | AT,GLUC,CA,PHOS,ALB | | PDT | | results section. | | ) | | | | | + +--------+ + + + | MAGNESIUM, PLASMA | Urgent | 03/17/2017 | | Results for this | | | | 3:10 AM | | procedure are in the | | | | PDT | | results section. | + +--------+ + + + | CAPILLARY BLOOD | Routin | 03/17/2017 | ST elevation | Results for this | | GLUCOSE (NO CHG), | e | 2:49 AM | myocardial | procedure are in the | | POC | | PDT | infarction involving | results section. | | | | | left main coronary | | | | | | artery (HCC) | | + +--------+ + + + | LACTATE | Urgent | 03/17/2017 | | Results for this | | | | 2:46 AM | | procedure are in the | | | | PDT | | results section. | + +--------+ + + + | BLOOD GASES, | Routin | 03/17/2017 | | Results for this | | ARTERIAL - LAB | e | 2:46 AM | | procedure are in the | | | | PDT | | results section. | + +--------+ + + + | HEMOGLOBIN, PLASMA | Urgent | 03/17/2017 | | Results for this | | FREE | | 2:45 AM | | procedure are in the | | | | PDT | | results section. | + +--------+ + + + | HEPARIN, EITHER | Urgent | 03/17/2017 | | Results for this | | STANDARD / LMW, | | 2:45 AM | | procedure are in the | | BLOOD | | PDT | | results section. | + +--------+ + + + | COAGULOPATHY PANEL | Urgent | 03/17/2017 | | Results for this | | (INR,APTT,FIBRINOGEN | | 2:45 AM | | procedure are in the | | ) | | PDT | | results section. | + +--------+ + + + | PHOSPHORUS, PLASMA | Urgent | 03/17/2017 | | Results for this | | | | 2:45 AM | | procedure are in the | | | | PDT | | results section. | + +--------+ + + + | BLOOD GASES, | Routin | 03/17/2017 | | Results for this | | ARTERIAL - LAB | e | 2:45 AM | | procedure are in the | | | | PDT | | results section. | + +--------+ + + + | BLOOD GASES, VENOUS | Urgent | 03/17/2017 | | Results for this | | - LAB | | 2:45 AM | | procedure are in the | | | | PDT | | results section. | + +--------+ + + + | MAGNESIUM, PLASMA | Urgent | 03/17/2017 | | Results for this | | | | 2:45 AM | | procedure are in the | | | | PDT | | results section. | + +--------+ + + + | LDH TOTAL, PLASMA | Urgent | 03/17/2017 | | Results for this | | | | 2:45 AM | | procedure are in the | | | | PDT | | results section. | + +--------+ + + + | 12 LEAD ECG | Routin | 03/17/2017 | | Results for this | | | e | 1:33 AM | | procedure are in the | | | | PDT | | results section. | + +--------+ + + + | OV-AK-RRD-HB,POC RT | Routin | 03/17/2017 | ST elevation | Results for this | | | e | 12:44 AM | myocardial | procedure are in the | | | | PDT | infarction involving | results section. | | | | | left main coronary | | | | | | artery (HCC) | | + +--------+ + + + | CAPILLARY BLOOD | Routin | 03/17/2017 | ST elevation | Results for this | | GLUCOSE (NO CHG), | e | 12:41 AM | myocardial | procedure are in the | | POC | | PDT | infarction involving | results section. | | | | | left main coronary | | | | | | artery (HCC) | | + +--------+ + + + | THROMBELASTOGRAPH, | Routin | 03/17/2017 | | Results for this | | POC | e | 12:19 AM | | procedure are in the | | | | PDT | | results section. | + +--------+ + + + | BLOOD GASES, | Routin | 03/17/2017 | | Results for this | | ARTERIAL - LAB | e | 12:05 AM | | procedure are in the | | | | PDT | | results section. | + +--------+ + + + | CAPILLARY BLOOD | Routin | 03/16/2017 | ST elevation | Results for this | | GLUCOSE (NO CHG), | e | 11:28 PM | myocardial | procedure are in the | | POC | | PDT | infarction involving | results section. | | | | | left main coronary | | | | | | artery (HCC) | | + +--------+ + + + | CAPILLARY BLOOD | Routin | 03/16/2017 | ST elevation | Results for this | | GLUCOSE (NO CHG), | e | 9:20 PM | myocardial | procedure are in the | | POC | | PDT | infarction involving | results section. | | | | | left main coronary | | | | | | artery (HCC) | | + +--------+ + + + | HEPARIN, EITHER | Urgent | 03/16/2017 | | Results for this | | STANDARD / LMW, | | 8:28 PM | | procedure are in the | | BLOOD | | PDT | | results section. | + +--------+ + + + | CAPILLARY BLOOD | Routin | 03/16/2017 | ST elevation | Results for this | | GLUCOSE (NO CHG), | e | 7:16 PM | myocardial | procedure are in the | | POC | | PDT | infarction involving | results section. | | | | | left main coronary | | | | | | artery (HCC) | | + +--------+ + + + | BLOOD GASES, | Routin | 03/16/2017 | | Results for this | | ARTERIAL - LAB | e | 5:39 PM | | procedure are in the | | | | PDT | | results section. | + +--------+ + + + | CAPILLARY BLOOD | Routin | 03/16/2017 | ST elevation | Results for this | | GLUCOSE (NO CHG), | e | 5:05 PM | myocardial | procedure are in the | | POC | | PDT | infarction involving | results section. | | | | | left main coronary | | | | | | artery (HCC) | | + +--------+ + + + | CAPILLARY BLOOD | Routin | 03/16/2017 | ST elevation | Results for this | | GLUCOSE (NO CHG), | e | 4:01 PM | myocardial | procedure are in the | | POC | | PDT | infarction involving | results section. | | | | | left main coronary | | | | | | artery (HCC) | | + +--------+ + + + | ART LINE | Routin | 03/16/2017 | | Results for this | | | e | 3:32 PM | | procedure are in the | | | | PDT | | results section. | + +--------+ + + + | BLOOD GASES, | Routin | 03/16/2017 | | Results for this | | ARTERIAL - LAB | e | 2:47 PM | | procedure are in the | | | | PDT | | results section. | + +--------+ + + + | CBC (HEMOGRAM) ONLY | Urgent | 03/16/2017 | | Results for this | | | | 2:46 PM | | procedure are in the | | | | PDT | | results section. | + +--------+ + + + | RENAL FUNCTION SET | Urgent | 03/16/2017 | | Results for this | | (NA,K,CL,CO2,BUN,CRE | | 2:46 PM | | procedure are in the | | AT,GLUC,CA,PHOS,ALB | | PDT | | results section. | | ) | | | | | + +--------+ + + + | CBC ONLY | Urgent | 03/16/2017 | | Results for this | | | | 2:46 PM | | procedure are in the | | | | PDT | | results section. | + +--------+ + + + | COAGULOPATHY PANEL | Urgent | 03/16/2017 | | Results for this | | (INR,APTT,FIBRINOGEN | | 2:46 PM | | procedure are in the | | ) | | PDT | | results section. | + +--------+ + + + | LACTATE | Urgent | 03/16/2017 | | Results for this | | | | 2:46 PM | | procedure are in the | | | | PDT | | results section. | + +--------+ + + + | BLOOD GASES, | Routin | 03/16/2017 | | Results for this | | ARTERIAL - LAB | e | 2:46 PM | | procedure are in the | | | | PDT | | results section. | + +--------+ + + + | BLOOD GASES, VENOUS | Urgent | 03/16/2017 | | Results for this | | - LAB | | 2:46 PM | | procedure are in the | | | | PDT | | results section. | + +--------+ + + + | CAPILLARY BLOOD | Routin | 03/16/2017 | ST elevation | Results for this | | GLUCOSE (NO CHG), | e | 2:37 PM | myocardial | procedure are in the | | POC | | PDT | infarction involving | results section. | | | | | left main coronary | | | | | | artery (HCC) | | + +--------+ + + + | CAPILLARY BLOOD | Routin | 03/16/2017 | ST elevation | Results for this | | GLUCOSE (NO CHG), | e | 1:33 PM | myocardial | procedure are in the | | POC | | PDT | infarction involving | results section. | | | | | left main coronary | | | | | | artery (HCC) | | + +--------+ + + + | CAPILLARY BLOOD | Routin | 03/16/2017 | ST elevation | Results for this | | GLUCOSE (NO CHG), | e | 1:16 PM | myocardial | procedure are in the | | POC | | PDT | infarction involving | results section. | | | | | left main coronary | | | | | | artery (HCC) | | + +--------+ + + + | CAPILLARY BLOOD | Routin | 03/16/2017 | ST elevation | Results for this | | GLUCOSE (NO CHG), | e | 12:12 PM | myocardial | procedure are in the | | POC | | PDT | infarction involving | results section. | | | | | left main coronary | | | | | | artery (HCC) | | + +--------+ + + + | APTT (ACT. PART. | Urgent | 03/16/2017 | | Results for this | | THROMBO TIME) | | 12:01 PM | | procedure are in the | | | | PDT | | results section. | + +--------+ + + + | RENAL FUNCTION SET | Urgent | 03/16/2017 | | Results for this | | (NA,K,CL,CO2,BUN,CRE | | 11:58 AM | | procedure are in the | | AT,GLUC,CA,PHOS,ALB | | PDT | | results section. | | ) | | | | | + +--------+ + + + | CAPILLARY BLOOD | Routin | 03/16/2017 | ST elevation | Results for this | | GLUCOSE (NO CHG), | e | 11:12 AM | myocardial | procedure are in the | | POC | | PDT | infarction involving | results section. | | | | | left main coronary | | | | | | artery (HCC) | | + +--------+ + + + | APTT (ACT. PART. | Urgent | 03/16/2017 | | Results for this | | THROMBO TIME) | | 11:10 AM | | procedure are in the | | | | PDT | | results section. | + +--------+ + + + | CAPILLARY BLOOD | Routin | 03/16/2017 | ST elevation | Results for this | | GLUCOSE (NO CHG), | e | 10:05 AM | myocardial | procedure are in the | | POC | | PDT | infarction involving | results section. | | | | | left main coronary | | | | | | artery (HCC) | | + +--------+ + + + | OPERATION RECORD | | 03/16/2017 | | Results for this | | | | 9:30 AM | | procedure are in the | | | | PDT | | results section. | + +--------+ + + + | HEMOGLOBIN, PLASMA | Urgent | 03/16/2017 | | Results for this | | FREE | | 9:15 AM | | procedure are in the | | | | PDT | | results section. | + +--------+ + + + | CBC (HEMOGRAM) ONLY | Urgent | 03/16/2017 | | Results for this | | | | 9:15 AM | | procedure are in the | | | | PDT | | results section. | + +--------+ + + + | HEPARIN, EITHER | Urgent | 03/16/2017 | | Results for this | | STANDARD / LMW, | | 9:15 AM | | procedure are in the | | BLOOD | | PDT | | results section. | + +--------+ + + + | CBC ONLY | Urgent | 03/16/2017 | | Results for this | | | | 9:15 AM | | procedure are in the | | | | PDT | | results section. | + +--------+ + + + | CAPILLARY BLOOD | Routin | 03/16/2017 | ST elevation | Results for this | | GLUCOSE (NO CHG), | e | 9:01 AM | myocardial | procedure are in the | | POC | | PDT | infarction involving | results section. | | | | | left main coronary | | | | | | artery (HCC) | | + +--------+ + + + | CAPILLARY BLOOD | Routin | 03/16/2017 | ST elevation | Results for this | | GLUCOSE (NO CHG), | e | 7:59 AM | myocardial | procedure are in the | | POC | | PDT | infarction involving | results section. | | | | | left main coronary | | | | | | artery (HCC) | | + +--------+ + + + | CAPILLARY BLOOD | Routin | 03/16/2017 | ST elevation | Results for this | | GLUCOSE (NO CHG), | e | 6:55 AM | myocardial | procedure are in the | | POC | | PDT | infarction involving | results section. | | | | | left main coronary | | | | | | artery (HCC) | | + +--------+ + + + | X-RAY PORTABLE CHEST | Routin | 03/16/2017 | | Results for this | | 1 VIEW | e | 5:44 AM | | procedure are in the | | | | PDT | | results section. | + +--------+ + + + | CAPILLARY BLOOD | Routin | 03/16/2017 | ST elevation | Results for this | | GLUCOSE (NO CHG), | e | 5:30 AM | myocardial | procedure are in the | | POC | | PDT | infarction involving | results section. | | | | | left main coronary | | | | | | artery (HCC) | | + +--------+ + + + | CAPILLARY BLOOD | Routin | 03/16/2017 | ST elevation | Results for this | | GLUCOSE (NO CHG), | e | 4:23 AM | myocardial | procedure are in the | | POC | | PDT | infarction involving | results section. | | | | | left main coronary | | | | | | artery (HCC) | | + +--------+ + + + | AH-KC-VUC-HB,POC RT | Routin | 03/16/2017 | ST elevation | Results for this | | | e | 3:42 AM | myocardial | procedure are in the | | | | PDT | infarction involving | results section. | | | | | left main coronary | | | | | | artery (HCC) | | + +--------+ + + + | CAPILLARY BLOOD | Routin | 03/16/2017 | ST elevation | Results for this | | GLUCOSE (NO CHG), | e | 3:41 AM | myocardial | procedure are in the | | POC | | PDT | infarction involving | results section. | | | | | left main coronary | | | | | | artery (HCC) | | + +--------+ + + + | THROMBELASTOGRAPH, | Routin | 03/16/2017 | | Results for this | | POC | e | 3:36 AM | | procedure are in the | | | | PDT | | results section. | + +--------+ + + + | BLOOD GASES, VENOUS | Urgent | 03/16/2017 | | Results for this | | - LAB | | 3:36 AM | | procedure are in the | | | | PDT | | results section. | + +--------+ + + + | CBC AND AUTO DIFF | Urgent | 03/16/2017 | | Results for this | | | | 3:35 AM | | procedure are in the | | | | PDT | | results section. | + +--------+ + + + | HEPARIN, EITHER | Urgent | 03/16/2017 | | Results for this | | STANDARD / LMW, | | 3:35 AM | | procedure are in the | | BLOOD | | PDT | | results section. | + +--------+ + + + | CBC, WITH | Urgent | 03/16/2017 | | Results for this | | DIFFERENTIAL | | 3:35 AM | | procedure are in the | | | | PDT | | results section. | + +--------+ + + + | RENAL FUNCTION SET | Urgent | 03/16/2017 | | Results for this | | (NA,K,CL,CO2,BUN,CRE | | 3:35 AM | | procedure are in the | | AT,GLUC,CA,PHOS,ALB | | PDT | | results section. | | ) | | | | | + +--------+ + + + | COAGULOPATHY PANEL | Urgent | 03/16/2017 | | Results for this | | (INR,APTT,FIBRINOGEN | | 3:35 AM | | procedure are in the | | ) | | PDT | | results section. | + +--------+ + + + | BLOOD GASES, | Routin | 03/16/2017 | | Results for this | | ARTERIAL - LAB | e | 3:35 AM | | procedure are in the | | | | PDT | | results section. | + +--------+ + + + | MAGNESIUM, PLASMA | Urgent | 03/16/2017 | | Results for this | | | | 3:35 AM | | procedure are in the | | | | PDT | | results section. | + +--------+ + + + | LDH TOTAL, PLASMA | Urgent | 03/16/2017 | | Results for this | | | | 3:35 AM | | procedure are in the | | | | PDT | | results section. | + +--------+ + + + | CAPILLARY BLOOD | Routin | 03/16/2017 | ST elevation | Results for this | | GLUCOSE (NO CHG), | e | 2:39 AM | myocardial | procedure are in the | | POC | | PDT | infarction involving | results section. | | | | | left main coronary | | | | | | artery (HCC) | | + +--------+ + + + | PHOSPHORUS, PLASMA | Urgent | 03/16/2017 | | Results for this | | | | 1:31 AM | | procedure are in the | | | | PDT | | results section. | + +--------+ + + + | CAPILLARY BLOOD | Routin | 03/16/2017 | ST elevation | Results for this | | GLUCOSE (NO CHG), | e | 1:25 AM | myocardial | procedure are in the | | POC | | PDT | infarction involving | results section. | | | | | left main coronary | | | | | | artery (HCC) | | + +--------+ + + + | COMPLETE METABOLIC | Urgent | 03/16/2017 | | Results for this | | SET | | 12:30 AM | | procedure are in the | | (NA,K,CL,CO2,BUN,CRE | | PDT | | results section. | | AT,GLUC,CA,AST,ALT,B | | | | | | BLANCA TOTAL,ALK | | | | | | PHOS,ALB,PROT TOTAL) | | | | | + +--------+ + + + | MAGNESIUM, PLASMA | Urgent | 03/16/2017 | | Results for this | | | | 12:30 AM | | procedure are in the | | | | PDT | | results section. | + +--------+ + + + | JT-OY-NZQ-HB,POC RT | Routin | 03/16/2017 | ST elevation | Results for this | | | e | 12:22 AM | myocardial | procedure are in the | | | | PDT | infarction involving | results section. | | | | | left main coronary | | | | | | artery (HCC) | | + +--------+ + + + | CAPILLARY BLOOD | Routin | 03/16/2017 | ST elevation | Results for this | | GLUCOSE (NO CHG), | e | 12:18 AM | myocardial | procedure are in the | | POC | | PDT | infarction involving | results section. | | | | | left main coronary | | | | | | artery (HCC) | | + +--------+ + + + | CAPILLARY BLOOD | Routin | 03/15/2017 | ST elevation | Results for this | | GLUCOSE (NO CHG), | e | 11:33 PM | myocardial | procedure are in the | | POC | | PDT | infarction involving | results section. | | | | | left main coronary | | | | | | artery (HCC) | | + +--------+ + + + | CAPILLARY BLOOD | Routin | 03/15/2017 | ST elevation | Results for this | | GLUCOSE (NO CHG), | e | 10:28 PM | myocardial | procedure are in the | | POC | | PDT | infarction involving | results section. | | | | | left main coronary | | | | | | artery (HCC) | | + +--------+ + + + | X-RAY PORTABLE CHEST | Urgent | 03/15/2017 | | Results for this | | 1 VIEW | | 9:44 PM | | procedure are in the | | | | PDT | | results section. | + +--------+ + + + | BG-LACTATE,POC RT | Routin | 03/15/2017 | ST elevation | Results for this | | | e | 9:26 PM | myocardial | procedure are in the | | | | PDT | infarction involving | results section. | | | | | left main coronary | | | | | | artery (HCC) | | + +--------+ + + + | CAPILLARY BLOOD | Routin | 03/15/2017 | ST elevation | Results for this | | GLUCOSE (NO CHG), | e | 9:25 PM | myocardial | procedure are in the | | POC | | PDT | infarction involving | results section. | | | | | left main coronary | | | | | | artery (HCC) | | + +--------+ + + + | CBC (HEMOGRAM) ONLY | Urgent | 03/15/2017 | | Results for this | | | | 9:22 PM | | procedure are in the | | | | PDT | | results section. | + +--------+ + + + | HEPARIN, EITHER | Urgent | 03/15/2017 | | Results for this | | STANDARD / LMW, | | 9:22 PM | | procedure are in the | | BLOOD | | PDT | | results section. | + +--------+ + + + | TROPONIN I, PLASMA | Urgent | 03/15/2017 | | Results for this | | | | 9:22 PM | | procedure are in the | | | | PDT | | results section. | + +--------+ + + + | CBC ONLY | Urgent | 03/15/2017 | | Results for this | | | | 9:22 PM | | procedure are in the | | | | PDT | | results section. | + +--------+ + + + | ENDOTRACHEAL | Routin | 03/15/2017 | | Results for this | | INTUBATION | e | 9:03 PM | | procedure are in the | | | | PDT | | results section. | + +--------+ + + + | CAPILLARY BLOOD | Routin | 03/15/2017 | ST elevation | Results for this | | GLUCOSE (NO CHG), | e | 8:18 PM | myocardial | procedure are in the | | POC | | PDT | infarction involving | results section. | | | | | left main coronary | | | | | | artery (HCC) | | + +--------+ + + + | EX-FS-IRW-HB,POC RT | Routin | 03/15/2017 | ST elevation | Results for this | | | e | 7:39 PM | myocardial | procedure are in the | | | | PDT | infarction involving | results section. | | | | | left main coronary | | | | | | artery (HCC) | | + +--------+ + + + | CAPILLARY BLOOD | Routin | 03/15/2017 | ST elevation | Results for this | | GLUCOSE (NO CHG), | e | 7:12 PM | myocardial | procedure are in the | | POC | | PDT | infarction involving | results section. | | | | | left main coronary | | | | | | artery (HCC) | | + +--------+ + + + | CAPILLARY BLOOD | Routin | 03/15/2017 | ST elevation | Results for this | | GLUCOSE (NO CHG), | e | 6:07 PM | myocardial | procedure are in the | | POC | | PDT | infarction involving | results section. | | | | | left main coronary | | | | | | artery (HCC) | | + +--------+ + + + | X-RAY PORTABLE CHEST | Urgent | 03/15/2017 | | Results for this | | 1 VIEW | | 5:51 PM | | procedure are in the | | | | PDT | | results section. | + +--------+ + + + | CVL | Routin | 03/15/2017 | | Results for this | | | e | 5:37 PM | | procedure are in the | | | | PDT | | results section. | + +--------+ + + + | CENTRAL LINE | Routin | 03/15/2017 | | Results for this | | PLACEMENT | e | 5:34 PM | | procedure are in the | | | | PDT | | results section. | + +--------+ + + + | LACTATE | Urgent | 03/15/2017 | | Results for this | | | | 4:49 PM | | procedure are in the | | | | PDT | | results section. | + +--------+ + + + | CAPILLARY BLOOD | Routin | 03/15/2017 | ST elevation | Results for this | | GLUCOSE (NO CHG), | e | 4:46 PM | myocardial | procedure are in the | | POC | | PDT | infarction involving | results section. | | | | | left main coronary | | | | | | artery (HCC) | | + +--------+ + + + | PROCEDURE NOTE | Routin | 03/15/2017 | | Results for this | | | e | 4:19 PM | | procedure are in the | | | | PDT | | results section. | + +--------+ + + + | BLOOD GAS, POC RT | Routin | 03/15/2017 | ST elevation | Results for this | | | e | 4:06 PM | myocardial | procedure are in the | | | | PDT | infarction involving | results section. | | | | | left main coronary | | | | | | artery (HCC) | | + +--------+ + + + | X-RAY PORTABLE CHEST | Urgent | 03/15/2017 | | Results for this | | 1 VIEW | | 4:03 PM | | procedure are in the | | | | PDT | | results section. | + +--------+ + + + | BLOOD GAS, POC RT | Routin | 03/15/2017 | ST elevation | Results for this | | | e | 4:03 PM | myocardial | procedure are in the | | | | PDT | infarction involving | results section. | | | | | left main coronary | | | | | | artery (HCC) | | + +--------+ + + + | CAPILLARY BLOOD | Routin | 03/15/2017 | ST elevation | Results for this | | GLUCOSE (NO CHG), | e | 3:47 PM | myocardial | procedure are in the | | POC | | PDT | infarction involving | results section. | | | | | left main coronary | | | | | | artery (HCC) | | + +--------+ + + + | BLOOD GAS, POC RT | Routin | 03/15/2017 | ST elevation | Results for this | | | e | 3:44 PM | myocardial | procedure are in the | | | | PDT | infarction involving | results section. | | | | | left main coronary | | | | | | artery (HCC) | | + +--------+ + + + | CBC (HEMOGRAM) ONLY | Urgent | 03/15/2017 | | Results for this | | | | 3:39 PM | | procedure are in the | | | | PDT | | results section. | + +--------+ + + + | COMPLETE METABOLIC | Urgent | 03/15/2017 | | Results for this | | SET | | 3:39 PM | | procedure are in the | | (NA,K,CL,CO2,BUN,CRE | | PDT | | results section. | | AT,GLUC,CA,AST,ALT,B | | | | | | BLANCA TOTAL,ALK | | | | | | PHOS,ALB,PROT TOTAL) | | | | | + +--------+ + + + | CBC ONLY | Urgent | 03/15/2017 | | Results for this | | | | 3:39 PM | | procedure are in the | | | | PDT | | results section. | + +--------+ + + + | COAGULOPATHY PANEL | Urgent | 03/15/2017 | | Results for this | | (INR,APTT,FIBRINOGEN | | 3:39 PM | | procedure are in the | | ) | | PDT | | results section. | + +--------+ + + + | PHOSPHORUS, PLASMA | Urgent | 03/15/2017 | | Results for this | | | | 3:39 PM | | procedure are in the | | | | PDT | | results section. | + +--------+ + + + | MAGNESIUM, PLASMA | Urgent | 03/15/2017 | | Results for this | | | | 3:39 PM | | procedure are in the | | | | PDT | | results section. | + +--------+ + + + | PROCEDURE NOTE | Routin | 03/15/2017 | | Results for this | | | e | 3:17 PM | | procedure are in the | | | | PDT | | results section. | + +--------+ + + + | X-RAY PORTABLE CHEST | Urgent | 03/15/2017 | | Results for this | | 1 VIEW | | 2:32 PM | | procedure are in the | | | | PDT | | results section. | + +--------+ + + + | PRODUCT - RED CELLS | Routin | 03/15/2017 | | Results for this | | LEUKOREDUCED | e | 2:24 PM | | procedure are in the | | | | PDT | | results section. | + +--------+ + + + | PRODUCT - RED CELLS | Routin | 03/15/2017 | | Results for this | | LEUKOREDUCED | e | 2:24 PM | | procedure are in the | | | | PDT | | results section. | + +--------+ + + + | PRODUCT - RED CELLS | Routin | 03/15/2017 | | Results for this | | LEUKOREDUCED | e | 2:24 PM | | procedure are in the | | | | PDT | | results section. | + +--------+ + + + | PRODUCT - RED CELLS | Urgent | 03/15/2017 | | Results for this | | LEUKOREDUCED | | 2:24 PM | | procedure are in the | | | | PDT | | results section. | + +--------+ + + + | IB-UQ-PMK-HB,POC RT | Routin | 03/15/2017 | ST elevation | Results for this | | | e | 1:23 PM | myocardial | procedure are in the | | | | PDT | infarction involving | results section. | | | | | left main coronary | | | | | | artery (HCC) | | + +--------+ + + + | CAPILLARY BLOOD | Routin | 03/15/2017 | ST elevation | Results for this | | GLUCOSE (NO CHG), | e | 1:22 PM | myocardial | procedure are in the | | POC | | PDT | infarction involving | results section. | | | | | left main coronary | | | | | | artery (HCC) | | + +--------+ + + + | TRANSTHORACIC | Urgent | 03/15/2017 | | Results for this | | ECHOCARDIOGRAM, | | 12:54 PM | | procedure are in the | | ADULT | | PDT | | results section. | + +--------+ + + + | X-RAY PORTABLE CHEST | Urgent | 03/15/2017 | | Results for this | | 1 VIEW | | 12:46 PM | | procedure are in the | | | | PDT | | results section. | + +--------+ + + + | 12 LEAD ECG | Routin | 03/15/2017 | | Results for this | | | e | 12:42 PM | | procedure are in the | | | | PDT | | results section. | + +--------+ + + + | RBC MORPHOLOGY | Routin | 03/15/2017 | | Results for this | | | e | 12:32 PM | | procedure are in the | | | | PDT | | results section. | + +--------+ + + + | CBC AND AUTO DIFF | Urgent | 03/15/2017 | | Results for this | | | | 12:32 PM | | procedure are in the | | | | PDT | | results section. | + +--------+ + + + | CONFIRMATORY ABO/RH | Routin | 03/15/2017 | | Results for this | | | e | 12:32 PM | | procedure are in the | | | | PDT | | results section. | + +--------+ + + + | CBC, WITH | Urgent | 03/15/2017 | | Results for this | | DIFFERENTIAL | | 12:32 PM | | procedure are in the | | | | PDT | | results section. | + +--------+ + + + | TROPONIN I, PLASMA | Urgent | 03/15/2017 | | Results for this | | | | 12:32 PM | | procedure are in the | | | | PDT | | results section. | + +--------+ + + + | COMPLETE METABOLIC | Urgent | 03/15/2017 | | Results for this | | SET | | 12:32 PM | | procedure are in the | | (NA,K,CL,CO2,BUN,CRE | | PDT | | results section. | | AT,GLUC,CA,AST,ALT,B | | | | | | BLANCA TOTAL,ALK | | | | | | PHOS,ALB,PROT TOTAL) | | | | | + +--------+ + + + | COAGULOPATHY PANEL | Urgent | 03/15/2017 | | Results for this | | (INR,APTT,FIBRINOGEN | | 12:32 PM | | procedure are in the | | ) | | PDT | | results section. | + +--------+ + + + | ANTIBODY SCREEN | Routin | 03/15/2017 | | Results for this | | | e | 12:32 PM | | procedure are in the | | | | PDT | | results section. | + +--------+ + + + | TYPE AND SCREEN | Routin | 03/15/2017 | | Results for this | | | e | 12:32 PM | | procedure are in the | | | | PDT | | results section. | + +--------+ + + + | ABO & RH TYPE | Routin | 03/15/2017 | | Results for this | | | e | 12:32 PM | | procedure are in the | | | | PDT | | results section. | + +--------+ + + + | MAGNESIUM, PLASMA | Urgent | 03/15/2017 | | Results for this | | | | 12:32 PM | | procedure are in the | | | | PDT | | results section. | + +--------+ + + + | KG-CL-KBR-HB,POC RT | Routin | 03/15/2017 | ST elevation | Results for this | | | e | 12:16 PM | myocardial | procedure are in the | | | | PDT | infarction involving | results section. | | | | | left main coronary | | | | | | artery (HCC) | | + +--------+ + + + | PERFUSION | | 03/15/2017 | | | | | | 12:00 AM | | | | | | PDT | | | + +--------+ + + + documented in this encounter Results CARDIAC CATH (04/02/2017 11:30 AM PDT) + + | Procedure Note | + + | Katarina Ngo MD - 03/30/2017 8:34 AM PDT DATE OF PROCEDURE:March 30, 2017PATIENT | | DATA: Height: 175 cm Weight: 89 kgBSA: 2.05 [id number] PHYSICIAN:Katarina Ngo | | .FELLOW:Gerson Mejias M.D. .INDICATION AND CLINICAL BRIEF:Mr. Mckeon is a | | 61-year-old man with history of cigarette use, chronic pain, coronary artery disease, | | status post acute anterior STEMI on 03/15/2017 with thrombosed left main artery treated | | with PCI of left main into LAD and subsequent PCI of left circumflex, acute cardiogenic | | shock, status post ECMO with decannulation on 03/19/2017, left atrial clot, on Coumadin, | | developed chest pain this evening. EKG showed anterior and lateral ST elevation in the | | setting of extensive Q-waves. Troponin vernell from 0.41 to 1.08. Given concern for | | stent thrombosis with recurrent chest pain and troponin elevation with extensive ST | | elevations in the setting of Q-waves, STEMI was activated.PROCEDURES PERFORMED:Selective | | left and right coronary angiography.COMPLICATIONS:None.TECHNIQUE:Right femoral artery | | 6-Cymraes 10 cm Aldrich sheath, 6-Cymraes XB 3.5 guide catheter, 5-Cymraes JR4 | | catheter.DESCRIPTION OF PROCEDURE:Informed consent was obtained. The patient was | | brought to the cardiac catheterization laboratory. A team pause was performed. The | | right wrist and right groin were cleaned and draped in the usual fashion. Attempt at | | access of the right radial artery was unsuccessful with inability to palpate a good | | radial pulse. Angiographic and fluoroscopic landmarks were obtained of the right groin. | | 1% lidocaine was injected locally. Utilizing a modified Seldinger technique and a | | 5-Cymraes micropuncture system, a 6-Cymraes 10 cm Aldrich sheath was placed in the right | | femoral artery. A 6-Cymraes XB 3.5 guide catheter was inserted into the ascending aorta | | over a guidewire. The guidewire was removed. The catheter was aspirated and flushed. | | The left coronary system was selectively engaged and imaged in multiple projections. A | | 5-Cymraes Kymberly right 4 catheter was advanced to the ascending aorta over a guidewire. | | The guidewire was removed. The catheter was aspirated and flushed. The right coronary | | system was selectively engaged and imaged in multiple projections. The catheter was | | removed. The sheath was removed under manual pressure. The patient was transported to | | his room in stable condition.OMNIPAQUE:30 mL.FLUOROSCOPY TIME:3.1 minutes. DOSE AREA | | PRODUCT: 3749 cGy [id number]:Aortic pressure 87/15, mean aortic pressure 63, heart | | rate 66.MEDICATIONS:Fentanyl 50 mcg IV, midazolam 1 mg IV.CORONARY ANGIOGRAPHY:The left | | main coronary artery is a moderate-caliber, moderate-length vessel that bifurcates into | | the left anterior descending and left circumflex coronary arteries. The left main | | coronary artery has stents extending from it into the LAD. The stent is patent with | | ANNA-3 flow in the left coronary system. The left anterior descending artery is a | | moderate-caliber vessel that gives rise to a moderate-caliber diagonal branch. There is | | a stent extending from the left main into the proximal LAD. The stent is patent. The | | LAD then has proximal 30% and mid 30% stenosis. The left circumflex is a | | moderate-caliber vessel that gives rise to a small-caliber high takeoff first obtuse | | marginal, small-caliber second obtuse marginal, and 4 subsequent moderate caliber obtuse | | marginal branches. The left circumflex has distal 50% stenosis after the takeoff of | | the third obtuse marginal. The first small obtuse marginal is jailed by the left | | circumflex stent and has high-grade ostial disease. The ostial to proximal left | | circumflex stent is patent. The right coronary artery is a moderate-caliber vessel that | | gives rise to a posterior descending artery and a posterolateral branch. The right | | coronary artery has proximal 30% and distal 40% stenosis.SUMMARY:1. Patent left main to | | LAD stent and patent left circumflex stent.2. First obtuse marginal is jailed by the | | stent and is small in caliber with high-grade ostial disease.3. Moderate nonobstructive | | coronary artery disease otherwise.CLINICAL DISPOSITION:1. Usual post-catheterization | | care. 2. Aspirin 81 mg. 3. Clopidogrel 75 mg daily. 4. Continue Coumadin. Recommend | | triple therapy with aspirin, Plavix, and Coumadin for at least 1 month.ATTENDING | | SURGEON'S ATTESTATION:Pursuant to Federal Medicare Requirements, I certify that Katarina | | Ye Ngo was present for the entire procedure and participated directly in the | | generation of this report.MANDI Ibarra/KOREYD: 03/30/2017 04:50:01DT: | | 03/30/2017 08:34:34Job #: [id number] | |extending from it into the LAD. The stent is patent with ANNA-3 flow in the left coronary system. | | | |The left anterior descending artery is a moderate-caliber vessel that gives rise to a moder ate-caliber diagonal branch. There is a stent extending from the left main into the proxima l LAD. The stent is patent. | |The LAD then has proximal 30% and mid 30% stenosis. | | | |The left circumflex is a moderate-caliber vessel that gives rise to a small-caliber high ta keoff first obtuse marginal, small-caliber second obtuse marginal, and 4 subsequent moderate caliber obtuse marginal | |branches. The left circumflex has distal 50% stenosis after the takeoff of the third obtus e marginal. The first small obtuse marginal is jailed by the left circumflex stent and has high-grade ostial disease. The | |ostial to proximal left circumflex stent is patent. | | | |The right coronary artery is a moderate-caliber vessel that gives rise to a posterior desce nding artery and a posterolateral branch. The right coronary artery has proximal 30% and di stal 40% stenosis. | | | |SUMMARY: | |1. Patent left main to LAD stent and patent left circumflex stent. | |2. First obtuse marginal is jailed by the stent and is small in caliber with high-grade ost ial disease. | |3. Moderate nonobstructive coronary artery disease otherwise. | | | |CLINICAL DISPOSITION: | |1. Usual post-catheterization care. | |2. Aspirin 81 mg. | |3. Clopidogrel 75 mg daily. | |4. Continue Coumadin. Recommend triple therapy with aspirin, Plavix, and Coumadin for at l east 1 month. | | | |ATTENDING SURGEON'S ATTESTATION: | |Pursuant to Federal Medicare Requirements, I certify that Katarina Ngo M.D. was present for the entire procedure and participated directly in the generation of this report. | | | | | |Katarina Ngo MD | |YDT/MODL | | | | | | /[id number] | + + CAPILLARY BLOOD GLUCOSE (NO CHG), POC (04/02/2017 9:15 AM PDT) + +---------+ + + + | Component | Value | Ref Range | Performed | Pathologist | | | | | At | Signature | + +---------+ + + + | BLOOD | 112 (H) | 70 - 99 mg/dL | [facility] | | | GLUCOSE, | | | [facility] | | | POC | | | [facility] | | | | | | OF CARE | | | | | | TESTS | | + +---------+ + + + + + | Specimen | + + | | + + + + + + + | Performing | Address | City/State/Zipcode | Phone Number | | Organization | | | | + + + + + | [facility] | [address] | [place], [place] | | | [facility] | [address] | [address] | | | TESTS | | | | + + + + + RBC MORPHOLOGY (04/02/2017 5:04 AM PDT) + + + + + + | Component | Value | Ref Range | Performed | Pathologist | | | | | At | Signature | + + + + + + | ANISOCYTOSI | 2+(25-100cells/HPF) | | [facility] | | | S | | | LABORATORY | | | | | | SERVICES, | | | | | | CORE | | + + + + + + | MACROCYTOSI | 2+(25-100cells/HPF) | | [facility] | | | S | | | LABORATORY | | | | | | SERVICES, | | | | | | CORE | | + + + + + + + + | Specimen | + + | Blood | + + + + + + + | Performing | Address | City/State/Zipcode | Phone Number | | Organization | | | | + + + + + | [facility] | [address] | [place] [address] | | | SERVICES, CORE | [address] | | | + + + + + MANUAL DIFFERENTIAL (04/02/2017 5:04 AM PDT) + + + + + + | Component | Value | Ref Range | Performed | Pathologist | | | | | At | Signature | + + + + + + | NEUTROPHIL | 80.4 (H) | 50.0 - 70.0 % | [facility] | | | % | | | LABORATORY | | | | | | SERVICES, | | | | | | CORE | | + + + + + + | LYMPHOCYTE | 12.5 (L) | 18.0 - 42.0 % | [facility] | | | % | | | LABORATORY | | | | | | SERVICES, | | | | | | CORE | | + + + + + + | MONOCYTE % | 6.2 | 3.5 - 9.0 % | [facility] | | | | | | LABORATORY | | | | | | SERVICES, | | | | | | CORE | | + + + + + + | EOSINOPHIL | 0.9 (L) | 1.0 - 3.0 % | [facility] | | | % | | | LABORATORY | | | | | | SERVICES, | | | | | | CORE | | + + + + + + | BASOPHIL % | 0.0 | 0.0 - 2.0 % | [facility] | | | | | | LABORATORY | | | | | | SERVICES, | | | | | | CORE | | + + + + + + | IG% | 0.0Comment: Immature | 0.0 - 0.6 % | [facility] | | | | Granulocytes (IG) | | LABORATORY | | | | include metamyelocytes, | | SERVICES, | | | | myelocytes and | | CORE | | | | promyelocytes. Bands are | | | | | | not included in the IG | | | | | | count. Bands are | | | | | | included in the | | | | | | neutrophil count. | | | | + + + + + + | NEUTROPHIL | 6.87 | 1.80 - 7.70 | [facility] | | | # | | K/cu mm | LABORATORY | | | | | | SERVICES, | | | | | | CORE | | + + + + + + | LYMPHOCYTE | 1.07 | 1.00 - 4.80 | [facility] | | | # | | K/cu mm | LABORATORY | | | | | | SERVICES, | | | | | | CORE | | + + + + + + | MONOCYTE # | 0.53 | 0.10 - 0.90 | [facility] | | | | | K/cu mm | LABORATORY | | | | | | SERVICES, | | | | | | CORE | | + + + + + + | EOSINOPHIL | 0.08 | 0.00 - 0.50 | [facility] | | | # | | K/cu mm | LABORATORY | | | | | | SERVICES, | | | | | | CORE | | + + + + + + | BASOPHIL # | 0.00 | 0.00 - 0.10 | [facility] | | | | | K/cu mm | LABORATORY | | | | | | SERVICES, | | | | | | CORE | | + + + + + + | IG# | 0.00 | 0.00 - 0.03 | [facility] | | | | | K/cu mm | LABORATORY | | | | | | SERVICES, | | | | | | CORE | | + + + + + + + + | Specimen | + + | Blood | + + + + + | Narrative | Performed At | + + + | Immature Granulocytes (IG) include metamyelocytes, myelocytes | [facility] | | and promyelocytes. Bands are not included in the IG count. Bands | LABORATORY | | are included in the neutrophil count. | SERVICES, CORE | + + + + + + + + | Performing | Address | City/State/Zipcode | Phone Number | | Organization | | | | + + + + + | [facility] | [address] | [place] [address] | | | SERVICES, CORE | [address] | | | + + + + + CBC AND AUTO DIFF (04/02/2017 5:04 AM PDT) + + + + + + | Component | Value | Ref Range | Performed | Pathologist | | | | | At | Signature | + + + + + + | WHITE CELL | 8.55 | 3.50 - 10.80 | [facility] | | | COUNT | | K/cu mm | LABORATORY | | | | | | SERVICES, | | | | | | CORE | | + + + + + + | RED CELL | 3.38 (L) | 4.50 - 6.00 | [facility] | | | COUNT | | M/cu mm | LABORATORY | | | | | | SERVICES, | | | | | | CORE | | + + + + + + | HEMOGLOBIN | 10.2 (L) | 13.5 - 17.5 | [facility] | | | | | g/dL | LABORATORY | | | | | | SERVICES, | | | | | | CORE | | + + + + + + | HEMATOCRIT | 30.8 (L) | 41.0 - 53.0 % | [facility] | | | | | | LABORATORY | | | | | | SERVICES, | | | | | | CORE | | + + + + + + | MCV | 91.1 | 80.0 - 96.0 fL | [facility] | | | | | | LABORATORY | | | | | | SERVICES, | | | | | | CORE | | + + + + + + | MCHC | 33.1 | 33.0 - 35.5 | [facility] | | | | | g/dL | LABORATORY | | | | | | SERVICES, | | | | | | CORE | | + + + + + + | RDW SD | 49.9 (H) | 35.1 - 46.3 fL | [facility] | | | | | | LABORATORY | | | | | | SERVICES, | | | | | | CORE | | + + + + + + | PLATELET | 402 (H) | 150 - 400 K/cu | [facility] | | | COUNT | | mm | LABORATORY | | | | | | SERVICES, | | | | | | CORE | | + + + + + + | MPV | 9.8 | 9.7 - 12.3 fL | [facility] | | | | | | LABORATORY | | | | | | SERVICES, | | | | | | CORE | | + + + + + + | NRBC% | 0.0 | 0.0 - 0.3 % | [facility] | | | | | | LABORATORY | | | | | | SERVICES, | | | | | | CORE | | + + + + + + | NRBC# | 0.00 | 0.00 - 0.02 | [facility] | | | | | K/cu mm | LABORATORY | | | | | | SERVICES, | | | | | | CORE | | + + + + + + + + | Specimen | + + | Blood | + + + + + + + | Performing | Address | City/State/Zipcode | Phone Number | | Organization | | | | + + + + + | [facility] | [address] | [place] [address] | | | SERVICES, CORE | [address] | | | + + + + + BASIC METABOLIC SET (NA, K, CL, TCO2, BUN, CR, GLU, CA) (04/02/2017 5:04 AM PDT) + +---------+ + + + | Component | Value | Ref Range | Performed | Pathologist | | | | | At | Signature | + +---------+ + + + | GLUCOSE, | 99 | 70 - 99 mg/dL | [facility] | | | PLASMA | | | LABORATORY | | | (LAB) | | | SERVICES, | | | | | | CORE | | + +---------+ + + + | BUN, PLASMA | 43 (H) | 6 - 20 mg/dL | [facility] | | | (LAB) | | | LABORATORY | | | | | | SERVICES, | | | | | | CORE | | + +---------+ + + + | CREATININE | 1.29 | 0.70 - 1.30 | [facility] | | | PLASMA | | mg/dL | LABORATORY | | | (LAB) | | | SERVICES, | | | | | | CORE | | + +---------+ + + + | EGFR | >60 | >60 mL/min | [facility] | | | - | | | LABORATORY | | | SLOVENIAN | | | SERVICES, | | | | | | CORE | | + +---------+ + + + | EGFR NON | 56 (L) | >60 mL/min | [facility] | | | -SOREN | | | LABORATORY | | | RICAN | | | SERVICES, | | | | | | CORE | | + +---------+ + + + | SODIUM, | 130 (L) | 136 - 145 | [facility] | | | PLASMA | | mmol/L | LABORATORY | | | (LAB) | | | SERVICES, | | | | | | CORE | | + +---------+ + + + | POTASSIUM, | 5.0 | 3.4 - 5.0 | [facility] | | | PLASMA | | mmol/L | LABORATORY | | | (LAB) | | | SERVICES, | | | | | | CORE | | + +---------+ + + + | CHLORIDE, | 103 | 97 - 108 mmol/L | [facility] | | | PLASMA | | | LABORATORY | | | (LAB) | | | SERVICES, | | | | | | CORE | | + +---------+ + + + | TOTAL CO2, | 19 (L) | 21 - 32 mmol/L | [facility] | | | PLASMA | | | LABORATORY | | | (LAB) | | | SERVICES, | | | | | | CORE | | + +---------+ + + + | CALCIUM, | 9.0 | 8.6 - 10.2 | [facility] | | | PLASMA | | mg/dL | LABORATORY | | | (LAB) | | | SERVICES, | | | | | | CORE | | + +---------+ + + + | ANION GAP | 8 | mmol/L | [facility] | | | | | | LABORATORY | | | | | | SERVICES, | | | | | | CORE | | + +---------+ + + + | POTASSIUM | No Hemo | | [facility] | | | CMNT | | | LABORATORY | | | | | | SERVICES, | | | | | | CORE | | + +---------+ + + + + + | Specimen | + + | Blood | + + + + + | Narrative | Performed At | + + + | Adult glucose reference range change effective 03-18-17. GFR is | [facility] | | estimated using the MDRD equation recommended by the National Kidney | LABORATORY | | Disease Education Program. Estimated GFR Interpretive Information: | SERVICES, CORE | | <60 mL/min/1.73 sq m Chronic Kidney | | | Disease <15 mL/min/1.73 sq m Kidney | | | Failure Estimated GFR greater that 60 mL/min/1.73 sq m is of limited | | | clinical value. The MDRD equation is not valid in the following | | | situations: - Patients under 18 years of age - Severe malnutrition | | | or obesity - Vegetarian diet - Rapidly changing kidney function | | + + + + + + + + | Performing | Address | City/State/Zipcode | Phone Number | | Organization | | | | + + + + + | [facility] | [address] | [place] [address] | | | ARASH, ИРИНА | [address] | | | + + + + + INR (04/02/2017 5:04 AM PDT) + + + + + + | Component | Value | Ref Range | Performed | Pathologist | | | | | At | Signature | + + + + + + | INR | 1.93 (H) | 0.90 - 1.20 INR | [facility] | | | | | | LABORATORY | | | | | | SERVICES, | | | | | | CORE | | + + + + + + + + | Specimen | + + | Blood | + + + + + | Narrative | Performed At | + + + | INR Therapeutic ranges for full anticoagulation: INR for | [facility] | | Venous Thromboembolism (2.0 - 3.0) INR INR | LABORATORY | | for most patients with mech. valves (2.5 - 3.5) INR | ИРИНА ANTOINE | + + + + + + + + | Performing | Address | City/State/Zipcode | Phone Number | | Organization | | | | + + + + + | [facility] | [address] | [place] [address] | | | ИРИНА ANTOINE | [address] | | | + + + + + MAGNESIUM, PLASMA (04/02/2017 5:04 AM PDT) + +-------+ + + + | Component | Value | Ref Range | Performed | Pathologist | | | | | At | Signature | + +-------+ + + + | MAGNESIUM,P | 2.2 | 1.8 - 2.5 mg/dL | [facility] | | | LASMA | | | LABORATORY | | | | | | SERVICES, | | | | | | CORE | | + +-------+ + + + + + | Specimen | + + | Blood | + + + + + + + | Performing | Address | City/State/Zipcode | Phone Number | | Organization | | | | + + + + + | [facility] | [address] | [place] [address] | | | ARASH, ИРИНА | [address] | | | + + + + + CARDIOLOGY (04/02/2017 12:00 AM PDT) + + + | Narrative | Performed At | + + + | | | + + + CAPILLARY BLOOD GLUCOSE (NO CHG), POC (04/01/2017 8:58 PM PDT) + +-------+ + + + | Component | Value | Ref Range | Performed | Pathologist | | | | | At | Signature | + +-------+ + + + | BLOOD | 96 | 70 - 99 mg/dL | [facility] - | | | GLUCOSE, | | | [facility] | | | POC | | | [facility] | | | | | | OF CARE | | | | | | TESTS | | + +-------+ + + + + + | Specimen | + + | | + + + + + + + | Performing | Address | City/State/Zipcode | Phone Number | | Organization | | | | + + + + + | [facility] | [address] | [place], [place] | | | [facility] | [address] | [address] | | | TESTS | | | | + + + + + CAPILLARY BLOOD GLUCOSE (NO CHG), POC (04/01/2017 4:21 PM PDT) + +---------+ + + + | Component | Value | Ref Range | Performed | Pathologist | | | | | At | Signature | + +---------+ + + + | BLOOD | 105 (H) | 70 - 99 mg/dL | [facility] | | | GLUCOSE, | | | [facility] | | | POC | | | [facility] | | | | | | OF CARE | | | | | | TESTS | | + +---------+ + + + + + | Specimen | + + | | + + + + + + + | Performing | Address | City/State/Zipcode | Phone Number | | Organization | | | | + + + + + | [facility] | [address] | [place], [place] | | | [facility] | [address] | [address] | | | TESTS | | | | + + + + + CAPILLARY BLOOD GLUCOSE (NO CHG), POC (04/01/2017 9:27 AM PDT) + +-------+ + + + | Component | Value | Ref Range | Performed | Pathologist | | | | | At | Signature | + +-------+ + + + | BLOOD | 99 | 70 - 99 mg/dL | [facility] - | | | GLUCOSE, | | | [facility] | | | POC | | | [facility] | | | | | | OF CARE | | | | | | TESTS | | + +-------+ + + + + + | Specimen | + + | | + + + + + + + | Performing | Address | City/State/Zipcode | Phone Number | | Organization | | | | + + + + + | [facility] | [address] | [place], [place] | | | [facility] | [address] | [address] | | | TESTS | | | | + + + + + CBC AND AUTO DIFF (04/01/2017 3:43 AM PDT) + + + + + + | Component | Value | Ref Range | Performed | Pathologist | | | | | At | Signature | + + + + + + | WHITE CELL | 9.82 | 3.50 - 10.80 | [facility] | | | COUNT | | K/cu mm | LABORATORY | | | | | | SERVICES, | | | | | | CORE | | + + + + + + | RED CELL | 3.08 (L) | 4.50 - 6.00 | [facility] | | | COUNT | | M/cu mm | LABORATORY | | | | | | SERVICES, | | | | | | CORE | | + + + + + + | HEMOGLOBIN | 9.3 (L) | 13.5 - 17.5 | [facility] | | | | | g/dL | LABORATORY | | | | | | SERVICES, | | | | | | CORE | | + + + + + + | HEMATOCRIT | 27.7 (L) | 41.0 - 53.0 % | [facility] | | | | | | LABORATORY | | | | | | SERVICES, | | | | | | CORE | | + + + + + + | MCV | 89.9 | 80.0 - 96.0 fL | [facility] | | | | | | LABORATORY | | | | | | SERVICES, | | | | | | CORE | | + + + + + + | MCHC | 33.6 | 33.0 - 35.5 | [facility] | | | | | g/dL | LABORATORY | | | | | | SERVICES, | | | | | | CORE | | + + + + + + | RDW SD | 50.3 (H) | 35.1 - 46.3 fL | [facility] | | | | | | LABORATORY | | | | | | SERVICES, | | | | | | CORE | | + + + + + + | PLATELET | 435 (H) | 150 - 400 K/cu | [facility] | | | COUNT | | mm | LABORATORY | | | | | | SERVICES, | | | | | | CORE | | + + + + + + | MPV | 10.2 | 9.7 - 12.3 fL | [facility] | | | | | | LABORATORY | | | | | | SERVICES, | | | | | | CORE | | + + + + + + | NRBC% | 0.0 | 0.0 - 0.3 % | [facility] | | | | | | LABORATORY | | | | | | SERVICES, | | | | | | CORE | | + + + + + + | NRBC# | 0.00 | 0.00 - 0.02 | [facility] | | | | | K/cu mm | LABORATORY | | | | | | SERVICES, | | | | | | CORE | | + + + + + + | NEUTROPHIL | 72.3 (H) | 50.0 - 70.0 % | [facility] | | | % | | | LABORATORY | | | | | | SERVICES, | | | | | | CORE | | + + + + + + | LYMPHOCYTE | 17.1 (L) | 18.0 - 42.0 % | [facility] | | | % | | | LABORATORY | | | | | | SERVICES, | | | | | | CORE | | + + + + + + | MONOCYTE % | 8.6 | 3.5 - 9.0 % | [facility] | | | | | | LABORATORY | | | | | | SERVICES, | | | | | | CORE | | + + + + + + | EOS % | 0.8 (L) | 1.0 - 3.0 % | [facility] | | | | | | LABORATORY | | | | | | SERVICES, | | | | | | CORE | | + + + + + + | BASO % | 0.1 | 0.0 - 2.0 % | [facility] | | | | | | LABORATORY | | | | | | SERVICES, | | | | | | CORE | | + + + + + + | IG% | 1.1 (H)Comment: Immature | 0.0 - 0.6 % | [facility] | | | | Granulocytes (IG) | | LABORATORY | | | | include metamyelocytes, | | SERVICES, | | | | myelocytes and | | CORE | | | | promyelocytes. Bands | | | | | | are not included in the | | | | | | IG count. Bands are | | | | | | included in the | | | | | | neutrophil count. | | | | + + + + + + | NEUTROPHIL | 7.10 | 1.80 - 7.70 | [facility] | | | # | | K/cu mm | LABORATORY | | | | | | SERVICES, | | | | | | CORE | | + + + + + + | LYMPHOCYTE | 1.68 | 1.00 - 4.80 | [facility] | | | # | | K/cu mm | LABORATORY | | | | | | SERVICES, | | | | | | CORE | | + + + + + + | MONOCYTE # | 0.84 | 0.10 - 0.90 | [facility] | | | | | K/cu mm | LABORATORY | | | | | | SERVICES, | | | | | | CORE | | + + + + + + | EOS # | 0.08 | 0.00 - 0.50 | [facility] | | | | | K/cu mm | LABORATORY | | | | | | SERVICES, | | | | | | CORE | | + + + + + + | BASO # | 0.01 | 0.00 - 0.10 | [facility] | | | | | K/cu mm | LABORATORY | | | | | | SERVICES, | | | | | | CORE | | + + + + + + | IG# | 0.11 (H) | 0.00 - 0.03 | [facility] | | | | | K/cu mm | LABORATORY | | | | | | SERVICES, | | | | | | CORE | | + + + + + + + + | Specimen | + + | Blood | + + + + + | Narrative | Performed At | + + + | Immature Granulocytes (IG) include metamyelocytes, myelocytes | [facility] | | and promyelocytes. Bands are not included in the IG count. Bands | LABORATORY | | are included in the neutrophil count. | SERVICES, CORE | + + + + + + + + | Performing | Address | City/State/Zipcode | Phone Number | | Organization | | | | + + + + + | [facility] | [address] | [place] [address] | | | SERVICES, CORE | [address] | | | + + + + + BASIC METABOLIC SET (NA, K, CL, TCO2, BUN, CR, GLU, CA) (04/01/2017 3:43 AM PDT) + + + + + + | Component | Value | Ref Range | Performed | Pathologist | | | | | At | Signature | + + + + + + | GLUCOSE, | 107 (H) | 70 - 99 mg/dL | [facility] | | | PLASMA | | | LABORATORY | | | (LAB) | | | SERVICES, | | | | | | CORE | | + + + + + + | BUN, PLASMA | 49 (H) | 6 - 20 mg/dL | [facility] | | | (LAB) | | | LABORATORY | | | | | | SERVICES, | | | | | | CORE | | + + + + + + | CREATININE | 1.48 (H) | 0.70 - 1.30 | [facility] | | | PLASMA | | mg/dL | LABORATORY | | | (LAB) | | | SERVICES, | | | | | | CORE | | + + + + + + | EGFR | 58 (L) | >60 mL/min | [facility] | | | - | | | LABORATORY | | | SLOVENIAN | | | SERVICES, | | | | | | CORE | | + + + + + + | EGFR NON | 48 (L) | >60 mL/min | [facility] | | | -SOREN | | | LABORATORY | | | RICAN | | | SERVICES, | | | | | | CORE | | + + + + + + | SODIUM, | 130 (L) | 136 - 145 | [facility] | | | PLASMA | | mmol/L | LABORATORY | | | (LAB) | | | SERVICES, | | | | | | CORE | | + + + + + + | POTASSIUM, | 4.8 | 3.4 - 5.0 | [facility] | | | PLASMA | | mmol/L | LABORATORY | | | (LAB) | | | SERVICES, | | | | | | CORE | | + + + + + + | CHLORIDE, | 102 | 97 - 108 mmol/L | [facility] | | | PLASMA | | | LABORATORY | | | (LAB) | | | SERVICES, | | | | | | CORE | | + + + + + + | TOTAL CO2, | 19 (L) | 21 - 32 mmol/L | [facility] | | | PLASMA | | | LABORATORY | | | (LAB) | | | SERVICES, | | | | | | CORE | | + + + + + + | CALCIUM, | 8.5 (L) | 8.6 - 10.2 | [facility] | | | PLASMA | | mg/dL | LABORATORY | | | (LAB) | | | SERVICES, | | | | | | CORE | | + + + + + + | ANION GAP | 9 | mmol/L | [facility] | | | | | | LABORATORY | | | | | | SERVICES, | | | | | | CORE | | + + + + + + | POTASSIUM | No Hemo | | [facility] | | | CMNT | | | LABORATORY | | | | | | SERVICES, | | | | | | CORE | | + + + + + + + + | Specimen | + + | Blood | + + + + + | Narrative | Performed At | + + + | Adult glucose reference range change effective 712-17. GFR is | [facility] | | estimated using the MDRD equation recommended by the National Kidney | LABORATORY | | Disease Education Program. Estimated GFR Interpretive Information: | SERVICES, CORE | | <60 mL/min/1.73 sq m Chronic Kidney | | | Disease <15 mL/min/1.73 sq m Kidney | | | Failure Estimated GFR greater that 60 mL/min/1.73 sq m is of limited | | | clinical value. The MDRD equation is not valid in the following | | | situations: - Patients under 18 years of age - Severe malnutrition | | | or obesity - Vegetarian diet - Rapidly changing kidney function | | + + + + + + + + | Performing | Address | City/State/Zipcode | Phone Number | | Organization | | | | + + + + + | [facility] | [address] | [place] [address] | | | SERVICES, CORE | [address] | | | + + + + + INR (04/01/2017 3:43 AM PDT) + + + + + + | Component | Value | Ref Range | Performed | Pathologist | | | | | At | Signature | + + + + + + | INR | 2.16 (H) | 0.90 - 1.20 INR | [facility] | | | | | | LABORATORY | | | | | | SERVICES, | | | | | | CORE | | + + + + + + + + | Specimen | + + | Blood | + + + + + | Narrative | Performed At | + + + | INR Therapeutic ranges for full anticoagulation: INR for | [facility] | | Venous Thromboembolism (2.0 - 3.0) INR INR | LABORATORY | | for most patients with mech. valves (2.5 - 3.5) INR | SERVICES, CORE | + + + + + + + + | Performing | Address | City/State/Zipcode | Phone Number | | Organization | | | | + + + + + | [facility] | [address] | [place] [address] | | | SERVICES, CORE | [address] | | | + + + + + MAGNESIUM, PLASMA (04/01/2017 3:43 AM PDT) + +-------+ + + + | Component | Value | Ref Range | Performed | Pathologist | | | | | At | Signature | + +-------+ + + + | MAGNESIUM,P | 2.2 | 1.8 - 2.5 mg/dL | [facility] | | | LASMA | | | LABORATORY | | | | | | [facility], | | | | | | CORE | | + +-------+ + + + + + | Specimen | + + | Blood | + + + + + + + | Performing | Address | City/State/Zipcode | Phone Number | | Organization | | | | + + + + + | [facility] | [address] | [place] [address] | | | SERVICES, CORE | [address] | | | + + + + + CAPILLARY BLOOD GLUCOSE (NO CHG), POC (04/01/2017 12:03 AM PDT) + +---------+ + + + | Component | Value | Ref Range | Performed | Pathologist | | | | | At | Signature | + +---------+ + + + | BLOOD | 127 (H) | 70 - 99 mg/dL | [facility] | | | GLUCOSE, | | | [facility] | | | POC | | | [facility] | | | | | | OF CARE | | | | | | TESTS | | + +---------+ + + + + + | Specimen | + + | | + + + + + + + | Performing | Address | City/State/Zipcode | Phone Number | | Organization | | | | + + + + + | [facility] | [address] | [place], [place] | | | [facility] | [address] | [address] | | | TESTS | | | | + + + + + CARDIOLOGY (04/01/2017 12:00 AM PDT) + + + | Narrative | Performed At | + + + | | | + + + CARDIOLOGY (04/01/2017 12:00 AM PDT) + + + | Narrative | Performed At | + + + | | | + + + CAPILLARY BLOOD GLUCOSE (NO CHG), POC (03/31/2017 8:34 PM PDT) + +---------+ + + + | Component | Value | Ref Range | Performed | Pathologist | | | | | At | Signature | + +---------+ + + + | BLOOD | 129 (H) | 70 - 99 mg/dL | [facility] | | | GLUCOSE, | | | [facility] | | | POC | | | [facility] | | | | | | OF CARE | | | | | | TESTS | | + +---------+ + + + + + | Specimen | + + | | + + + + + + + | Performing | Address | City/State/Zipcode | Phone Number | | Organization | | | | + + + + + | [facility] | [address] | [place], [place] | | | [facility] | [address] | [phone] | | | TESTS | | | | + + + + + CAPILLARY BLOOD GLUCOSE (NO CHG), POC (03/31/2017 2:22 PM PDT) + +---------+ + + + | Component | Value | Ref Range | Performed | Pathologist | | | | | At | Signature | + +---------+ + + + | BLOOD | 109 (H) | 70 - 99 mg/dL | [facility] - | | | GLUCOSE, | | | [facility] | | | POC | | | [facility] | | | | | | OF CARE | | | | | | TESTS | | + +---------+ + + + + + | Specimen | + + | | + + + + + + + | Performing | Address | City/State/Zipcode | Phone Number | | Organization | | | | + + + + + | [facility] | [address] | [place], [place] | | | [facility] | [address] | [address] | | | TESTS | | | | + + + + + CAPILLARY BLOOD GLUCOSE (NO CHG), POC (03/31/2017 9:39 AM PDT) + +---------+ + + + | Component | Value | Ref Range | Performed | Pathologist | | | | | At | Signature | + +---------+ + + + | BLOOD | 130 (H) | 70 - 99 mg/dL | [facility] - | | | GLUCOSE, | | | [facility] | | | POC | | | [facility] | | | | | | OF CARE | | | | | | TESTS | | + +---------+ + + + + + | Specimen | + + | | + + + + + + + | Performing | Address | City/State/Zipcode | Phone Number | | Organization | | | | + + + + + | [facility] | [address] | [place], [place] | | | [facility] | [address] | [address] | | | TESTS | | | | + + + + + CBC AND AUTO DIFF (03/31/2017 3:45 AM PDT) + + + + + + | Component | Value | Ref Range | Performed | Pathologist | | | | | At | Signature | + + + + + + | WHITE CELL | 8.85 | 3.50 - 10.80 | [facility] | | | COUNT | | K/cu mm | LABORATORY | | | | | | SERVICES, | | | | | | CORE | | + + + + + + | RED CELL | 3.17 (L) | 4.50 - 6.00 | [facility] | | | COUNT | | M/cu mm | LABORATORY | | | | | | SERVICES, | | | | | | CORE | | + + + + + + | HEMOGLOBIN | 9.5 (L) | 13.5 - 17.5 | [facility] | | | | | g/dL | LABORATORY | | | | | | SERVICES, | | | | | | CORE | | + + + + + + | HEMATOCRIT | 28.8 (L) | 41.0 - 53.0 % | [facility] | | | | | | LABORATORY | | | | | | SERVICES, | | | | | | CORE | | + + + + + + | MCV | 90.9 | 80.0 - 96.0 fL | [facility] | | | | | | LABORATORY | | | | | | SERVICES, | | | | | | CORE | | + + + + + + | MCHC | 33.0 | 33.0 - 35.5 | [facility] | | | | | g/dL | LABORATORY | | | | | | SERVICES, | | | | | | CORE | | + + + + + + | RDW SD | 49.1 (H) | 35.1 - 46.3 fL | [facility] | | | | | | LABORATORY | | | | | | SERVICES, | | | | | | CORE | | + + + + + + | PLATELET | 408 (H) | 150 - 400 K/cu | [facility] | | | COUNT | | mm | LABORATORY | | | | | | SERVICES, | | | | | | CORE | | + + + + + + | MPV | 10.0 | 9.7 - 12.3 fL | [facility] | | | | | | LABORATORY | | | | | | SERVICES, | | | | | | CORE | | + + + + + + | NRBC% | 0.0 | 0.0 - 0.3 % | [facility] | | | | | | LABORATORY | | | | | | SERVICES, | | | | | | CORE | | + + + + + + | NRBC# | 0.00 | 0.00 - 0.02 | [facility] | | | | | K/cu mm | LABORATORY | | | | | | SERVICES, | | | | | | CORE | | + + + + + + | NEUTROPHIL | 73.6 (H) | 50.0 - 70.0 % | [facility] | | | % | | | LABORATORY | | | | | | SERVICES, | | | | | | CORE | | + + + + + + | LYMPHOCYTE | 16.2 (L) | 18.0 - 42.0 % | [facility] | | | % | | | LABORATORY | | | | | | SERVICES, | | | | | | CORE | | + + + + + + | MONOCYTE % | 8.1 | 3.5 - 9.0 % | [facility] | | | | | | LABORATORY | | | | | | SERVICES, | | | | | | CORE | | + + + + + + | EOS % | 0.5 (L) | 1.0 - 3.0 % | [facility] | | | | | | LABORATORY | | | | | | SERVICES, | | | | | | CORE | | + + + + + + | BASO % | 0.2 | 0.0 - 2.0 % | [facility] | | | | | | LABORATORY | | | | | | SERVICES, | | | | | | CORE | | + + + + + + | IG% | 1.4 (H)Comment: Immature | 0.0 - 0.6 % | [facility] | | | | Granulocytes (IG) | | LABORATORY | | | | include metamyelocytes, | | SERVICES, | | | | myelocytes and | | CORE | | | | promyelocytes. Bands | | | | | | are not included in the | | | | | | IG count. Bands are | | | | | | included in the | | | | | | neutrophil count. | | | | + + + + + + | NEUTROPHIL | 6.52 | 1.80 - 7.70 | [facility] | | | # | | K/cu mm | LABORATORY | | | | | | SERVICES, | | | | | | CORE | | + + + + + + | LYMPHOCYTE | 1.43 | 1.00 - 4.80 | [facility] | | | # | | K/cu mm | LABORATORY | | | | | | SERVICES, | | | | | | CORE | | + + + + + + | MONOCYTE # | 0.72 | 0.10 - 0.90 | [facility] | | | | | K/cu mm | LABORATORY | | | | | | SERVICES, | | | | | | CORE | | + + + + + + | EOS # | 0.04 | 0.00 - 0.50 | [facility] | | | | | K/cu mm | LABORATORY | | | | | | SERVICES, | | | | | | CORE | | + + + + + + | BASO # | 0.02 | 0.00 - 0.10 | [facility] | | | | | K/cu mm | LABORATORY | | | | | | SERVICES, | | | | | | CORE | | + + + + + + | IG# | 0.12 (H) | 0.00 - 0.03 | [facility] | | | | | K/cu mm | LABORATORY | | | | | | SERVICES, | | | | | | CORE | | + + + + + + + + | Specimen | + + | Blood | + + + + + | Narrative | Performed At | + + + | Immature Granulocytes (IG) include metamyelocytes, myelocytes | [facility] | | and promyelocytes. Bands are not included in the IG count. Bands | LABORATORY | | are included in the neutrophil count. | SERVICES, CORE | + + + + + + + + | Performing | Address | City/State/Zipcode | Phone Number | | Organization | | | | + + + + + | [facility] | [address] | [place] [address] | | | SERVICES, CORE | [address] | | | + + + + + BASIC METABOLIC SET (NA, K, CL, TCO2, BUN, CR, GLU, CA) (03/31/2017 3:45 AM PDT) + +---------+ + + + | Component | Value | Ref Range | Performed | Pathologist | | | | | At | Signature | + +---------+ + + + | GLUCOSE, | 107 (H) | 70 - 99 mg/dL | [facility] | | | PLASMA | | | LABORATORY | | | (LAB) | | | SERVICES, | | | | | | CORE | | + +---------+ + + + | BUN, PLASMA | 42 (H) | 6 - 20 mg/dL | [facility] | | | (LAB) | | | LABORATORY | | | | | | SERVICES, | | | | | | CORE | | + +---------+ + + + | CREATININE | 1.24 | 0.70 - 1.30 | [facility] | | | PLASMA | | mg/dL | LABORATORY | | | (LAB) | | | SERVICES, | | | | | | CORE | | + +---------+ + + + | EGFR | >60 | >60 mL/min | [facility] | | | - | | | LABORATORY | | | SLOVENIAN | | | SERVICES, | | | | | | CORE | | + +---------+ + + + | EGFR NON | 59 (L) | >60 mL/min | [facility] | | | -SOREN | | | LABORATORY | | | RICAN | | | SERVICES, | | | | | | CORE | | + +---------+ + + + | SODIUM, | 131 (L) | 136 - 145 | [facility] | | | PLASMA | | mmol/L | LABORATORY | | | (LAB) | | | SERVICES, | | | | | | CORE | | + +---------+ + + + | POTASSIUM, | 4.9 | 3.4 - 5.0 | [facility] | | | PLASMA | | mmol/L | LABORATORY | | | (LAB) | | | SERVICES, | | | | | | CORE | | + +---------+ + + + | CHLORIDE, | 106 | 97 - 108 mmol/L | [facility] | | | PLASMA | | | LABORATORY | | | (LAB) | | | SERVICES, | | | | | | CORE | | + +---------+ + + + | TOTAL CO2, | 15 (L) | 21 - 32 mmol/L | [facility] | | | PLASMA | | | LABORATORY | | | (LAB) | | | SERVICES, | | | | | | CORE | | + +---------+ + + + | CALCIUM, | 8.6 | 8.6 - 10.2 | [facility] | | | PLASMA | | mg/dL | LABORATORY | | | (LAB) | | | SERVICES, | | | | | | CORE | | + +---------+ + + + | ANION GAP | 10 | mmol/L | [facility] | | | | | | LABORATORY | | | | | | SERVICES, | | | | | | CORE | | + +---------+ + + + | POTASSIUM | No Hemo | | [facility] | | | CMNT | | | LABORATORY | | | | | | SERVICES, | | | | | | CORE | | + +---------+ + + + + + | Specimen | + + | Blood | + + + + + | Narrative | Performed At | + + + | Adult glucose reference range change effective 03-18-17. GFR is | [facility] | | estimated using the MDRD equation recommended by the National Kidney | LABORATORY | | Disease Education Program. Estimated GFR Interpretive Information: | SERVICES, CORE | | <60 mL/min/1.73 sq m Chronic Kidney | | | Disease <15 mL/min/1.73 sq m Kidney | | | Failure Estimated GFR greater that 60 mL/min/1.73 sq m is of limited | | | clinical value. The MDRD equation is not valid in the following | | | situations: - Patients under 18 years of age - Severe malnutrition | | | or obesity - Vegetarian diet - Rapidly changing kidney function | | + + + + + + + + | Performing | Address | City/State/Zipcode | Phone Number | | Organization | | | | + + + + + | [facility] | [address] | [place] [address] | | | SERVICES, ИРИНА | [address] | | | + + + + + INR (03/31/2017 3:45 AM PDT) + + + + + + | Component | Value | Ref Range | Performed | Pathologist | | | | | At | Signature | + + + + + + | INR | 2.11 (H) | 0.90 - 1.20 INR | [facility] | | | | | | LABORATORY | | | | | | SERVICES, | | | | | | CORE | | + + + + + + + + | Specimen | + + | Blood | + + + + + | Narrative | Performed At | + + + | INR Therapeutic ranges for full anticoagulation: INR for | [facility] | | Venous Thromboembolism (2.0 - 3.0) INR INR | LABORATORY | | for most patients with mech. valves (2.5 - 3.5) INR | [facility], CORE | + + + + + + + + | Performing | Address | City/State/Zipcode | Phone Number | | Organization | | | | + + + + + | [facility] | [address] | [place] [address] | | | ARASH, ИРИНА | [address] | | | + + + + + MAGNESIUM, PLASMA (03/31/2017 3:45 AM PDT) + +-------+ + + + | Component | Value | Ref Range | Performed | Pathologist | | | | | At | Signature | + +-------+ + + + | MAGNESIUM,P | 2.4 | 1.8 - 2.5 mg/dL | [facility] | | | LASMA | | | LABORATORY | | | | | | SERVICES, | | | | | | ИРИНА | | + +-------+ + + + + + | Specimen | + + | Blood | + + + + + + + | Performing | Address | City/State/Zipcode | Phone Number | | Organization | | | | + + + + + | [facility] | [address] | [place] [address] | | | SERVICES, CORE | [address] | | | + + + + + FERRITIN (03/31/2017 3:45 AM PDT) + +---------+ + + + | Component | Value | Ref Range | Performed | Pathologist | | | | | At | Signature | + +---------+ + + + | FERRITIN | 400 (H) | 50 - 200 ng/mL | [facility] | | | | | | LABORATORY | | | | | | SERVICES, | | | | | | CORE | | + +---------+ + + + + + | Specimen | + + | Blood | + + + + + + + | Performing | Address | City/State/Zipcode | Phone Number | | Organization | | | | + + + + + | [facility] | [address] | [place] [address] | | | ARASH, ИРИНА | [address] | | | + + + + + CARDIOLOGY (03/31/2017 12:00 AM PDT) + + + | Narrative | Performed At | + + + | | | + + + CARDIOLOGY (03/31/2017 12:00 AM PDT) + + + | Narrative | Performed At | + + + | | | + + + CAPILLARY BLOOD GLUCOSE (NO CHG), POC (03/30/2017 9:21 PM PDT) + +---------+ + + + | Component | Value | Ref Range | Performed | Pathologist | | | | | At | Signature | + +---------+ + + + | BLOOD | 118 (H) | 70 - 99 mg/dL | [facility] - | | | GLUCOSE, | | | [facility] | | | POC | | | [facility] | | | | | | OF CARE | | | | | | TESTS | | + +---------+ + + + + + | Specimen | + + | | + + + + + + + | Performing | Address | City/State/Zipcode | Phone Number | | Organization | | | | + + + + + | [facility] | [address] | [place], [place] | | | [facility] | [address] | [address] | | | TESTS | | | | + + + + + BASIC METABOLIC SET (NA, K, CL, TCO2, BUN, CR, GLU, CA) (03/30/2017 8:36 PM PDT) + + + + + + | Component | Value | Ref Range | Performed | Pathologist | | | | | At | Signature | + + + + + + | GLUCOSE, | 123 (H) | 70 - 99 mg/dL | [facility] | | | PLASMA | | | LABORATORY | | | (LAB) | | | SERVICES, | | | | | | CORE | | + + + + + + | BUN, PLASMA | 50 (H) | 6 - 20 mg/dL | [facility] | | | (LAB) | | | LABORATORY | | | | | | SERVICES, | | | | | | CORE | | + + + + + + | CREATININE | 1.55 (H) | 0.70 - 1.30 | [facility] | | | PLASMA | | mg/dL | LABORATORY | | | (LAB) | | | SERVICES, | | | | | | CORE | | + + + + + + | EGFR | 55 (L) | >60 mL/min | [facility] | | | - | | | LABORATORY | | | SLOVENIAN | | | SERVICES, | | | | | | CORE | | + + + + + + | EGFR NON | 46 (L) | >60 mL/min | [facility] | | | -SOREN | | | LABORATORY | | | RICAN | | | SERVICES, | | | | | | CORE | | + + + + + + | SODIUM, | 133 (L) | 136 - 145 | [facility] | | | PLASMA | | mmol/L | LABORATORY | | | (LAB) | | | SERVICES, | | | | | | CORE | | + + + + + + | POTASSIUM, | 5.3 (H) | 3.4 - 5.0 | [facility] | | | PLASMA | | mmol/L | LABORATORY | | | (LAB) | | | SERVICES, | | | | | | CORE | | + + + + + + | CHLORIDE, | 104 | 97 - 108 mmol/L | [facility] | | | PLASMA | | | LABORATORY | | | (LAB) | | | SERVICES, | | | | | | CORE | | + + + + + + | TOTAL CO2, | 19 (L) | 21 - 32 mmol/L | [facility] | | | PLASMA | | | LABORATORY | | | (LAB) | | | SERVICES, | | | | | | CORE | | + + + + + + | CALCIUM, | 9.2 | 8.6 - 10.2 | [facility] | | | PLASMA | | mg/dL | LABORATORY | | | (LAB) | | | SERVICES, | | | | | | CORE | | + + + + + + | ANION GAP | 10 | mmol/L | [facility] | | | | | | LABORATORY | | | | | | SERVICES, | | | | | | CORE | | + + + + + + | POTASSIUM | No Hemo | | [facility] | | | CMNT | | | LABORATORY | | | | | | SERVICES, | | | | | | CORE | | + + + + + + + + | Specimen | + + | Blood | + + + + + | Narrative | Performed At | + + + | Adult glucose reference range change effective 712-17. GFR is | [facility] | | estimated using the MDRD equation recommended by the National Kidney | LABORATORY | | Disease Education Program. Estimated GFR Interpretive Information: | SERVICES, CORE | | <60 mL/min/1.73 sq m Chronic Kidney | | | Disease <15 mL/min/1.73 sq m Kidney | | | Failure Estimated GFR greater that 60 mL/min/1.73 sq m is of limited | | | clinical value. The MDRD equation is not valid in the following | | | situations: - Patients under 18 years of age - Severe malnutrition | | | or obesity - Vegetarian diet - Rapidly changing kidney function | | + + + + + + + + | Performing | Address | City/State/Zipcode | Phone Number | | Organization | | | | + + + + + | [facility] | [address] | [place] [address] | | | SERVICES, CORE | [address] | | | + + + + + 12 LEAD ECG (03/30/2017 5:46 PM PDT) + + + + + + | Component | Value | Ref Range | Performed | Pathologist | | | | | At | Signature | + + + + + + | VENTRICULAR | 99 | bpm | [facility] | | | RATE | | | OF | | | | | | CARDIOLOGY | | + + + + + + | ATRIAL RATE | 99 | ms | [facility] | | | | | | OF | | | | | | CARDIOLOGY | | + + + + + + | P-R | 160 | ms | [facility] | | | INTERVAL | | | OF | | | | | | CARDIOLOGY | | + + + + + + | P AXIS | 42 | deg | [facility] | | | | | | OF | | | | | | CARDIOLOGY | | + + + + + + | QRS | 96 | ms | [facility] | | | DURATION | | | OF | | | | | | CARDIOLOGY | | + + + + + + | QT | 340 | ms | [facility] | | | | | | OF | | | | | | CARDIOLOGY | | + + + + + + | QTCB | 437 | ms | [facility] | | | | | | OF | | | | | | CARDIOLOGY | | + + + + + + | R AXIS | 234 | deg | [facility] | | | | | | OF | | | | | | CARDIOLOGY | | + + + + + + | T AXIS | 100 | deg | [facility] | | | | | | OF | | | | | | CARDIOLOGY | | + + + + + + | ECG | SINUS TACHYCARDIA | | [facility] | | | IMPRESSION | | | OF | | | | | | CARDIOLOGY | | + + + + + + | ECG | MULTIPLE VENTRICULAR | | [facility] | | | IMPRESSION | PREMATURE COMPLEXES | | OF | | | | | | CARDIOLOGY | | + + + + + + | ECG | LATERAL INFARCT, AGE | | [facility] | | | IMPRESSION | INDETERMINATE | | OF | | | | | | CARDIOLOGY | | + + + + + + | ECG | PROBABLE ANTERIOR | | [facility] | | | IMPRESSION | INFARCT, ACUTE- ABNORMAL | | OF | | | | ECG - | | CARDIOLOGY | | + + + + + + | ECG | Electronically signed | | [facility] | | | IMPRESSION | by: JANN JORGENSEN | | OF | | | | 03-30-2017 22:16:55 | | CARDIOLOGY | | + + + + + [...] | + + + + + | [facility] | [address] | [place], [place] | | | CARDIOLOGY | [address] | [address] | | + + + + + CAPILLARY BLOOD GLUCOSE (NO CHG), POC (03/30/2017 5:22 PM PDT) + +---------+ + + + | Component | Value | Ref Range | Performed | Pathologist | | | | | At | Signature | + +---------+ + + + | BLOOD | 116 (H) | 70 - 99 mg/dL | [facility] - | | | GLUCOSE, | | | [facility] | | | POC | | | [facility] | | | | | | OF CARE | | | | | | TESTS | | + +---------+ + + + + + | Specimen | + + | | + + + + + + + | Performing | Address | City/State/Zipcode | Phone Number | | Organization | | | | + + + + + | [facility] | [address] | [place], [place] | | | [facility] | [address] | [address] | | | TESTS | | | | + + + + + BASIC METABOLIC SET (NA, K, CL, TCO2, BUN, CR, GLU, CA) (03/30/2017 12:49 PM PDT) + + + + + + | Component | Value | Ref Range | Performed | Pathologist | | | | | At | Signature | + + + + + + | GLUCOSE, | 102 (H) | 70 - 99 mg/dL | [facility] | | | PLASMA | | | LABORATORY | | | (LAB) | | | SERVICES, | | | | | | CORE | | + + + + + + | BUN, PLASMA | 44 (H) | 6 - 20 mg/dL | [facility] | | | (LAB) | | | LABORATORY | | | | | | SERVICES, | | | | | | CORE | | + + + + + + | CREATININE | 1.40 (H) | 0.70 - 1.30 | [facility] | | | PLASMA | | mg/dL | LABORATORY | | | (LAB) | | | SERVICES, | | | | | | CORE | | + + + + + + | EGFR | >60 | >60 mL/min | [facility] | | | - | | | LABORATORY | | | SLOVENIAN | | | SERVICES, | | | | | | CORE | | + + + + + + | EGFR NON | 51 (L) | >60 mL/min | [facility] | | | -SOREN | | | LABORATORY | | | RICAN | | | SERVICES, | | | | | | CORE | | + + + + + + | SODIUM, | 132 (L) | 136 - 145 | [facility] | | | PLASMA | | mmol/L | LABORATORY | | | (LAB) | | | SERVICES, | | | | | | CORE | | + + + + + + | POTASSIUM, | 5.9 (H) | 3.4 - 5.0 | [facility] | | | PLASMA | | mmol/L | LABORATORY | | | (LAB) | | | SERVICES, | | | | | | CORE | | + + + + + + | CHLORIDE, | 104 | 97 - 108 mmol/L | [facility] | | | PLASMA | | | LABORATORY | | | (LAB) | | | SERVICES, | | | | | | CORE | | + + + + + + | TOTAL CO2, | 18 (L) | 21 - 32 mmol/L | [facility] | | | PLASMA | | | LABORATORY | | | (LAB) | | | SERVICES, | | | | | | CORE | | + + + + + + | CALCIUM, | 8.5 (L) | 8.6 - 10.2 | [facility] | | | PLASMA | | mg/dL | LABORATORY | | | (LAB) | | | SERVICES, | | | | | | CORE | | + + + + + + | ANION GAP | 10 | mmol/L | [facility] | | | | | | LABORATORY | | | | | | SERVICES, | | | | | | CORE | | + + + + + + | POTASSIUM | Sl Hemo | | [facility] | | | CMNT | | | LABORATORY | | | | | | SERVICES, | | | | | | CORE | | + + + + + + + + | Specimen | + + | Blood | + + + + + | Narrative | Performed At | + + + | Adult glucose reference range change effective 712-17. Sample | [facility] | | hemolyzed. Results for K, Total Bili, Direct Bili, AST, LDH, or HDL | LABORATORY | | may be inaccurate. Refer to comment under test result. GFR is | SERVICES, CORE | | estimated using the MDRD equation recommended by the National Kidney | | | Disease Education Program. Estimated GFR Interpretive Information: | | | <60 mL/min/1.73 sq m Chronic Kidney | | | Disease <15 mL/min/1.73 sq m Kidney | | | Failure Estimated GFR greater that 60 mL/min/1.73 sq m is of limited | | | clinical value. The MDRD equation is not valid in the following | | | situations: - Patients under 18 years of age - Severe malnutrition | | | or obesity - Vegetarian diet - Rapidly changing kidney function | | + + + + + + + + | Performing | Address | City/State/Zipcode | Phone Number | | Organization | | | | + + + + + | [facility] | [address] | [place] [address] | | | SERVICES, CORE | [address] | | | + + + + + TROPONIN I, PLASMA (03/30/2017 12:49 PM PDT) + + + + + + | Component | Value | Ref Range | Performed | Pathologist | | | | | At | Signature | + + + + + + | TROPONIN I | 0.95 (H) | <0.80 ng/mL | [facility] | | | | | | LABORATORY | | | | | | SERVICES, | | | | | | CORE | | + + + + + + + + | Specimen | + + | Blood | + + + + + + + | Performing | Address | City/State/Zipcode | Phone Number | | Organization | | | | + + + + + | [facility] | [address] | [place] [address] | | | SERVICES, CORE | [address] | | | + + + + + TRANSTHORACIC ECHOCARDIOGRAM, ADULT (03/30/2017 10:44 AM PDT) + + + + + + | Component | Value | Ref Range | Performed | Pathologist | | | | | At | Signature | + + + + + + | EJECTION | 30 to 35 | | [facility] | | | FRACTION | | | OF | | | | | | CARDIOLOGY | | + + + + + + | LA | 4.1 | | [facility] | | | DIMENSION | | | OF | | | | | | CARDIOLOGY | | + + + + + + | LVIDD | 5.3 | | [facility] | | | | | | OF | | | | | | CARDIOLOGY | | + + + + + + | MV A VMAX | 1.0 | | [facility] | | | | | | OF | | | | | | CARDIOLOGY | | + + + + + + | MV E? | 0.1 | | [facility] | | | | | | OF | | | | | | CARDIOLOGY | | + + + + + + | MV E VMAX | 0.6 | | [facility] | | | | | | OF | | | | | | CARDIOLOGY | | + + + + + + | RV TAPSE | 2.1 | | [facility] | | | | | | OF | | | | | | CARDIOLOGY | | + + + + + + | RV TDI S? | 15.4 | | [facility] | | | | | | OF | | | | | | CARDIOLOGY | | + + + + + + | EJECTION | 32.5 | % | [facility] | | | FRACTION | | | OF | | | RANGE MEAN | | | CARDIOLOGY | | | VALUE | | | | | + + + + + + + + | Specimen | + + | | + + + +------ + | Narrative | Perfo rmed At | + +------ + | [facility] | [facility] OF | | [facility] Adult Echocardiography | CARDI OLOGY | | Laboratory [address] [place] [address] | | | [place] [address] Pt Name: | | | RON Chaudhary MIKE Study Date/Time 03/30/2017 / 10:44:00 | | | AMMRN: [id number] Most recent | | | prior: 03/19/17 #: [id number] No. previous | | | echos: 3DOB: 1955 61 years Heart | | | Rate: 70 bpmHeight: 68.0 in | | | Blood Pressure: 100/55 mm/HgWeight: 197.0 | | | lb Gender: | | | MBSA: 2.03 m2 Order | | | ID: [id number] Banquet Captain: Shahab uStton | | | RDCSSonographer 2: Karly Gayle Referring Provider: Ariana | | | [facility] Location: [id number] Performed: 2D, Color flow, | | | Spectral Doppler and Lumason contrast.Study Quality: This was a | | | technically difficult study, but image quality improved with echo | | | contrast.Exam Indication: Acute MIHistory: Pt had chest pain 03/29, 9pm | | | lasting about 10 minutes and spontaneously resolved w/o intervention. | | | Troponin was trended along with the EKGs, which showed evolving ST | | | elevations and rising troponin. Initially unclear if the EKG changes | | | were new from prior ECG on 03/19, however given continued elevated Tn, | | | patient's significant recent RI, we activated the blood bank laboratory technician. Patient | | | history has been obtained from the EHR Transthoracic Echocardiographic | | | Report | | | + | | | ---------+Final | | | Impressions: | | | | | | | | | | | | | | | | | | 1. The left ventricular cavity size is | | | normal. | | | 2. Visually estimated left ventricular ejection fraction is 30 - | | | 35%. 3. Left ventricular systolic thickening is | | | segmentally abnormal (see comments | | | below). | | | 4. Right | | | ventricular size, thickness and function are | | | normal. 5. Compared to the most recent | | | exam dated, 03/19/17, the LVEF has improved slightly. | | | Segmental wall motion abnormalities | | | remain. | | | | | | | | | + | | | + Description of Findings: Cardiac Rhythm: | | | Normal sinus rhythm.Left Ventricle: The left ventricular cavity size | | | is normal. Visually estimated left ventricular ejection fraction is 30 | | | - 35%. The LV ejection fraction is severely decreased.Due to poor | | | endocardial definition, ultrasound contrast was used (Lumason).Left | | | Ventricular Wall Motion: The entire apex and entire anterior septum | | | are akinetic. The basal and mid inferior septum and mid anterior | | | segment are hypokinetic. All remaining scored segments are normal. | | | Left ventricular systolic thickening is segmentally abnormal.Atria: | | | Left atrial size is normal. Normal right atrium.Right Ventricle: Right | | | ventricular size, thickness and function are normal. TAPSE measures | | | 2.07cm. The RV TDI s' velocity is 15.4cm/sec.Aortic Valve: The aortic | | | valve is trileaflet and normal in structure and function. No | | | indication of aortic valve regurgitation.Mitral Valve: The mitral | | | valve is structurally normal. No evidence of mitral valve | | | regurgitation.Tricuspid Valve: The tricuspid valve is structurally | | | normal. Mild tricuspid regurgitation.Pulmonic Valve: The peak trans | | | pulmonic gradient is 6.7 mmHg.Aorta: The ascending aorta is not well | | | visualized.Venous: The inferior vena cava was not well | | | visualized.Pericardium: No pericardial effusion is seen.2D | | | Measurements Doppler Measurements | | | 2D NL Values Aortic | | | MitralLVID(d) 5.35 (3.5-5.7cm) Max Rohan 1.47 Peak | | | E 0.56 | | | cm | | | m/s m/sLVID(s) 3.56 | | | Mean grad 5.0 Peak | | | A 0.99 | | | cm | | | mmHg m/sIVS(d) 0.78 (0.6-1.1cm) | | | LVOT Rohan 1.26 E/A Ratio 0.56 | | | cm | | | m/sLVPW(d) 0.93 (0.6-1.1cm) LVOT Diam 2.10 TDI | | | (E/e') 5.1 | | | cm cmLA A/Ps 2D | | | 4.10 (2.7-3.9cm) Tricuspid Pulmonic | | | cm TR Vmax 2.69 PV Vmax | | | 1.3LA vol A/L 51.7 (40-73ml) | | | m/s m/sBP mlLA vol A/L | | | 25.5 (16-34) | | | Aorta: | | | Index:index ml/m2 Ao | | | Sinus 3.40 (2.1-3.5cm) 16.7LA vol MOD 49.1 | | | (40-73ml) cm | | | mm/m2BP mlLA vol MOD 24.2 | | | (16-34)index ml/m2 Evaluation of chamber size and geometry | | | is accomplished through the incorporation of linear, volumetric, and | | | indexed values Wall Scoring: Report electronically signed by: | | | [id number] Jordon Neville MD (03/30/2017, 2:04:56 PM) Final | | | | | |Wall Scoring: | | | | | | | | |Report electronically signed by: [id number] Jordon Neville MD (03/30/2017, 2:04:56 PM) | | | | | | | | | | | | Final | | + +------ + + + | Procedure Note | + + | Interface, Cardiology Results - 03/30/2017 2:04 PM [facility] | | [facility] [address] [place] [address] | | [place], [place] [address] Pt Name: RON Chaudhary | | MIKE Study Date/Time 03/30/2017 / 10:44:00 AMMRN: [id number] Most | | recent prior: 03/19/17 #: [id number] No. previous echos: 3DOB: | | 1955 61 years Heart Rate: 70 bpmHeight: 68.0 in Blood | | Pressure: 100/55 mm/HgWeight: 197.0 lb Gender: MBSA: | | 2.03 m2 Order ID: [id number] Banquet Captain: Shahab Sutton | | RDCSSonographer 2: Karly Major Provider[facility] Location: | | 11KModalities Performed: 2D, Color flow, Spectral Doppler and Lumason contrast.Study | | Quality: This was a technically difficult study, but image quality improved with echo | | contrast.Exam Indication: Acute MIHistory: Pt had chest pain 03/29, 9pm lasting about 10 | | minutes and spontaneously resolved w/o intervention. Troponin was trended along with the | | EKGs, which showed evolving ST elevations and rising troponin. Initially unclear if the | | EKG changes were new from prior ECG on 03/19, however given continued elevated Tn, | | patient's significant recent RI, we activated the blood bank laboratory technician. Patient history has been | | obtained from the EHR Transthoracic Echocardiographic | | Report+ +Fi | | nal Impressions: | | | | 1. The left ventricular cavity | | size is normal. 2. Visually estimated left ventricular | | ejection fraction is 30 - 35%. 3. Left ventricular systolic thickening is | | segmentally abnormal (see comments below). | | 4. Right ventricular size, thickness and function are normal. | | 5. Compared to the most recent exam dated, 03/19/17, the LVEF has improved | | slightly. Segmental wall motion abnormalities remain. | | | | + + | | Description of Findings: Cardiac Rhythm: Normal sinus rhythm.Left Ventricle: The left | | ventricular cavity size is normal. Visually estimated left ventricular ejection fraction | | is 30 - 35%. The LV ejection fraction is severely decreased.Due to poor endocardial | | definition, ultrasound contrast was used (Lumason).Left Ventricular Wall Motion: The | | entire apex and entire anterior septum are akinetic. The basal and mid inferior septum | | and mid anterior segment are hypokinetic. All remaining scored segments are normal. Left | | ventricular systolic thickening is segmentally abnormal.Atria: Left atrial size is | | normal. Normal right atrium.Right Ventricle: Right ventricular size, thickness and | | function are normal. TAPSE measures 2.07cm. The RV TDI s' velocity is 15.4cm/sec.Aortic | | Valve: The aortic valve is trileaflet and normal in structure and function. No | | indication of aortic valve regurgitation.Mitral Valve: The mitral valve is structurally | | normal. No evidence of mitral valve regurgitation.Tricuspid Valve: The tricuspid valve | | is structurally normal. Mild tricuspid regurgitation.Pulmonic Valve: The peak trans | | pulmonic gradient is 6.7 mmHg.Aorta: The ascending aorta is not well visualized.Venous: | | The inferior vena cava was not well visualized.Pericardium: No pericardial effusion is | | seen.2D Measurements Doppler Measurements 2D NL Values | | Aortic MitralLVID(d) 5.35 (3.5-5.7cm) Max Rohan 1.47 Peak E 0.56 | | cm m/s m/sLVID(s) 3.56 Mean | | grad 5.0 Peak A 0.99 cm mmHg | | m/sIVS(d) 0.78 (0.6-1.1cm) LVOT Rohan 1.26 E/A Ratio 0.56 cm | | m/sLVPW(d) 0.93 (0.6-1.1cm) LVOT Diam 2.10 TDI (E/e') 5.1 | | cm cmLA A/Ps 2D 4.10 (2.7-3.9cm) Tricuspid Pulmonic | | cm TR Vmax 2.69 PV Vmax 1.3LA vol A/L 51.7 (40-73ml) | | m/s m/sBP mlLA vol A/L 25.5 (16-34) Aorta: | | Index:index ml/m2 Ao Sinus 3.40 (2.1-3.5cm) 16.7LA vol | | MOD 49.1 (40-73ml) cm mm/m2BP mlLA vol MOD 24.2 | | (16-34)index ml/m2 Evaluation of chamber size and geometry is accomplished through | | the incorporation of linear, volumetric, and indexed values Wall Scoring: Report | | electronically signed by: [id number] Jordon Neville MD (03/30/2017, 2:04:56 PM) Final | | | |segmentally abnormal. | |Atria: Left atrial size is normal. Normal right atrium. | |Right Ventricle: Right ventricular size, thickness and function are normal. TAPSE | |measures 2.07cm. The RV TDI s' velocity is 15.4cm/sec. | |Aortic Valve: The aortic valve is trileaflet and normal in structure and function. No | | indication of aortic valve regurgitation. | |Mitral Valve: The mitral valve is structurally normal. No evidence of mitral valve | |regurgitation. | |Tricuspid Valve: The tricuspid valve is structurally normal. Mild tricuspid | |regurgitation. | |Pulmonic Valve: The peak trans pulmonic gradient is 6.7 mmHg. | |Aorta: The ascending aorta is not well visualized. | |Venous: The inferior vena cava was not well visualized. | |Pericardium: No pericardial effusion is seen. | |2D Measurements Doppler Measurements | | | | 2D NL Values Aortic Mitral | |LVID(d) 5.35 (3.5-5.7cm) Max Rohan 1.47 Peak E 0.56 | | cm m/s m/s | |LVID(s) 3.56 Mean grad 5.0 Peak A 0.99 | | cm mmHg m/s | |IVS(d) 0.78 (0.6-1.1cm) LVOT Rohan 1.26 E/A Ratio 0.56 | | cm m/s | |LVPW(d) 0.93 (0.6-1.1cm) LVOT Diam 2.10 TDI (E/e') 5.1 | | cm cm | |LA A/Ps 2D 4.10 (2.7-3.9cm) Tricuspid Pulmonic | | cm TR Vmax 2.69 PV Vmax 1.3 | |LA vol A/L 51.7 (40-73ml) m/s m/s | |BP ml | |LA vol A/L 25.5 (16-34) Aorta: Index: | |index ml/m2 Ao Sinus 3.40 (2.1-3.5cm) 16.7 | |LA vol MOD 49.1 (40-73ml) cm mm/m2 | |BP ml | |LA vol MOD 24.2 (16-34) | |index ml/m2 | | | |Evaluation of chamber size and geometry is accomplished through the incorporation of | |linear, volumetric, and indexed values | | | |Wall Scoring: | | | | | |Report electronically signed by: [id number] Jordon Neville MD (03/30/2017, 2:04:56 PM) | | | | | | | | Final | + + + + + + + | Performing | Address | City/State/Zipcode | Phone Number | | Organization | | | | + + + + + | [facility] | [address] | [place], [place] | | | CARDIOLOGY | [address] | [address] | | + + + + + CAPILLARY BLOOD GLUCOSE (NO CHG), POC (03/30/2017 9:08 AM PDT) + +---------+ + + + | Component | Value | Ref Range | Performed | Pathologist | | | | | At | Signature | + +---------+ + + + | BLOOD | 110 (H) | 70 - 99 mg/dL | [facility] - | | | GLUCOSE, | | | [facility] | | | POC | | | [facility] | | | | | | OF CARE | | | | | | TESTS | | + +---------+ + + + + + | Specimen | + + | | + + + + + + + | Performing | Address | City/State/Zipcode | Phone Number | | Organization | | | | + + + + + | [facility] | [address] | [place], [place] | | | [facility] | [address] | [address] | | | TESTS | | | | + + + + + TROPONIN I, PLASMA (03/30/2017 5:35 AM PDT) + + + + + + | Component | Value | Ref Range | Performed | Pathologist | | | | | At | Signature | + + + + + + | TROPONIN I | 1.30 (H) | <0.80 ng/mL | [facility] | | | | | | LABORATORY | | | | | | SERVICES, | | | | | | CORE | | + + + + + + + + | Specimen | + + | Blood | + + + + + + + | Performing | Address | City/State/Zipcode | Phone Number | | Organization | | | | + + + + + | [facility] | [address] | [place] [address] | | | SERVICES, CORE | [address] | | | + + + + + ACT, POC-CCL ONLY (03/30/2017 4:21 AM PDT) + +-------+ + + + | Component | Value | Ref Range | Performed | Pathologist | | | | | At | Signature | + +-------+ + + + | ACT, POC | 150 | 90 - 150 | [facility] - | | | CCL | | | [facility] | | | INTRAPROC | | | [facility] | | | | | | OF CARE | | | | | | TESTS | | + +-------+ + + + + + | Specimen | + + | Blood | + + + + + + + | Performing | Address | City/State/Zipcode | Phone Number | | Organization | | | | + + + + + | [facility] | [address] | [place], [place] | | | [facility] | [address] | [address] | | | TESTS | | | | + + + + + 12 LEAD ECG (03/30/2017 3:22 AM PDT) + + + + + + | Component | Value | Ref Range | Performed | Pathologist | | | | | At | Signature | + + + + + + | VENTRICULAR | 98 | bpm | [facility] | | | RATE | | | OF | | | | | | CARDIOLOGY | | + + + + + + | ATRIAL RATE | 98 | ms | [facility] | | | | | | OF | | | | | | CARDIOLOGY | | + + + + + + | P-R | 160 | ms | [facility] | | | INTERVAL | | | OF | | | | | | CARDIOLOGY | | + + + + + + | P AXIS | 58 | deg | [facility] | | | | | | OF | | | | | | CARDIOLOGY | | + + + + + + | QRS | 98 | ms | [facility] | | | DURATION | | | OF | | | | | | CARDIOLOGY | | + + + + + + | QT | 336 | ms | [facility] | | | | | | OF | | | | | | CARDIOLOGY | | + + + + + + | QTCB | 430 | ms | [facility] | | | | | | OF | | | | | | CARDIOLOGY | | + + + + + + | R AXIS | 253 | deg | [facility] | | | | | | OF | | | | | | CARDIOLOGY | | + + + + + + | T AXIS | 74 | deg | [facility] | | | | | | OF | | | | | | CARDIOLOGY | | + + + + + + | ECG | SINUS TACHYCARDIA | | [facility] | | | IMPRESSION | | | OF | | | | | | CARDIOLOGY | | + + + + + + | ECG | VENTRICULAR TRIGEMINY | | [facility] | | | IMPRESSION | | | OF | | | | | | CARDIOLOGY | | + + + + + + | ECG | PROBABLE ANTERIOR | | [facility] | | | IMPRESSION | INFARCT, ACUTE- ABNORMAL | | OF | | | | ECG - | | CARDIOLOGY | | + + + + + + | ECG | Electronically signed | | [facility] | | | IMPRESSION | by: JANN JORGENSEN | | OF | | | | 03-30-2017 09:32:06 | | CARDIOLOGY | | + + + + + [...] | + + + + + | [facility] | [address] | [place], [place] | | | CARDIOLOGY | [address] | [address] | | + + + + + BASIC METABOLIC SET (NA, K, CL, TCO2, BUN, CR, GLU, CA) (03/30/2017 3:14 AM PDT) + + + + + + | Component | Value | Ref Range | Performed | Pathologist | | | | | At | Signature | + + + + + + | GLUCOSE, | 109 (H) | 70 - 99 mg/dL | [facility] | | | PLASMA | | | LABORATORY | | | (LAB) | | | SERVICES, | | | | | | CORE | | + + + + + + | BUN, PLASMA | 49 (H) | 6 - 20 mg/dL | [facility] | | | (LAB) | | | LABORATORY | | | | | | SERVICES, | | | | | | CORE | | + + + + + + | CREATININE | 1.34 (H) | 0.70 - 1.30 | [facility] | | | PLASMA | | mg/dL | LABORATORY | | | (LAB) | | | SERVICES, | | | | | | CORE | | + + + + + + | EGFR | >60 | >60 mL/min | [facility] | | | - | | | LABORATORY | | | SLOVENIAN | | | SERVICES, | | | | | | CORE | | + + + + + + | EGFR NON | 54 (L) | >60 mL/min | [facility] | | | -SOREN | | | LABORATORY | | | RICAN | | | SERVICES, | | | | | | CORE | | + + + + + + | SODIUM, | 132 (L) | 136 - 145 | [facility] | | | PLASMA | | mmol/L | LABORATORY | | | (LAB) | | | SERVICES, | | | | | | CORE | | + + + + + + | POTASSIUM, | 5.5 (H) | 3.4 - 5.0 | [facility] | | | PLASMA | | mmol/L | LABORATORY | | | (LAB) | | | SERVICES, | | | | | | CORE | | + + + + + + | CHLORIDE, | 102 | 97 - 108 mmol/L | [facility] | | | PLASMA | | | LABORATORY | | | (LAB) | | | SERVICES, | | | | | | CORE | | + + + + + + | TOTAL CO2, | 23 | 21 - 32 mmol/L | [facility] | | | PLASMA | | | LABORATORY | | | (LAB) | | | SERVICES, | | | | | | CORE | | + + + + + + | CALCIUM, | 9.0 | 8.6 - 10.2 | [facility] | | | PLASMA | | mg/dL | LABORATORY | | | (LAB) | | | SERVICES, | | | | | | CORE | | + + + + + + | ANION GAP | 7 | mmol/L | [facility] | | | | | | LABORATORY | | | | | | SERVICES, | | | | | | CORE | | + + + + + + | POTASSIUM | Sl Hemo | | [facility] | | | CMNT | | | LABORATORY | | | | | | SERVICES, | | | | | | CORE | | + + + + + + + + | Specimen | + + | Blood | + + + + + | Narrative | Performed At | + + + | Adult glucose reference range change effective 7-12-17. Sample | [facility] | | hemolyzed. Results for K, Total Bili, Direct Bili, AST, LDH, or HDL | LABORATORY | | may be inaccurate. Refer to comment under test result. GFR is | SERVICES, CORE | | estimated using the MDRD equation recommended by the National Kidney | | | Disease Education Program. Estimated GFR Interpretive Information: | | | <60 mL/min/1.73 sq m Chronic Kidney | | | Disease <15 mL/min/1.73 sq m Kidney | | | Failure Estimated GFR greater that 60 mL/min/1.73 sq m is of limited | | | clinical value. The MDRD equation is not valid in the following | | | situations: - Patients under 18 years of age - Severe malnutrition | | | or obesity - Vegetarian diet - Rapidly changing kidney function | | + + + + + + + + | Performing | Address | City/State/Zipcode | Phone Number | | Organization | | | | + + + + + | [facility] | [address] | [place] [address] | | | SERVICES, CORE | [address] | | | + + + + + APTT (ACT. PART. THROMBO TIME) (03/30/2017 3:14 AM PDT) + +-------+ + + + | Component | Value | Ref Range | Performed | Pathologist | | | | | At | Signature | + +-------+ + + + | APTT | 35.7 | 26.0 - 36.0 | [facility] | | | | | seconds | LABORATORY | | | | | | SERVICES, | | | | | | CORE | | + +-------+ + + + + + | Specimen | + + | Blood | + + + + + | Narrative | Performed At | + + + | APTT Therapeutic | [facility] | | Range: (75 - 120) sec | LABORATORY | | Heparin levels of 0.35 - 0.7 U/mL | SERVICES, CORE | + + + + + + + + | Performing | Address | City/State/Zipcode | Phone Number | | Organization | | | | + + + + + | [facility] | [address] | [place] [address] | | | SERVICES, CORE | [address] | | | + + + + + TROPONIN I, PLASMA (03/30/2017 2:49 AM PDT) + + + + + + | Component | Value | Ref Range | Performed | Pathologist | | | | | At | Signature | + + + + + + | TROPONIN I | 1.08 (H) | <0.80 ng/mL | [facility] | | | | | | LABORATORY | | | | | | ARASH, | | | | | | CORE | | + + + + + + + + | Specimen | + + | Blood | + + + + + + + | Performing | Address | City/State/Zipcode | Phone Number | | Organization | | | | + + + + + | [facility] | [address] | [place] [address] | | | SERVICES, CORE | [address] | | | + + + + + 12 LEAD ECG (03/30/2017 2:47 AM PDT) + + + + + + | Component | Value | Ref Range | Performed | Pathologist | | | | | At | Signature | + + + + + + | VENTRICULAR | 93 | bpm | [facility] | | | RATE | | | OF | | | | | | CARDIOLOGY | | + + + + + + | ATRIAL RATE | 93 | ms | [facility] | | | | | | OF | | | | | | CARDIOLOGY | | + + + + + + | P-R | 152 | ms | [facility] | | | INTERVAL | | | OF | | | | | | CARDIOLOGY | | + + + + + + | P AXIS | 75 | deg | [facility] | | | | | | OF | | | | | | CARDIOLOGY | | + + + + + + | QRS | 96 | ms | [facility] | | | DURATION | | | OF | | | | | | CARDIOLOGY | | + + + + + + | QT | 344 | ms | [facility] | | | | | | OF | | | | | | CARDIOLOGY | | + + + + + + | QTCB | 428 | ms | [facility] | | | | | | OF | | | | | | CARDIOLOGY | | + + + + + + | R AXIS | 251 | deg | [facility] | | | | | | OF | | | | | | CARDIOLOGY | | + + + + + + | T AXIS | 84 | deg | [facility] | | | | | | OF | | | | | | CARDIOLOGY | | + + + + + + | ECG | SINUS RHYTHM | | [facility] | | | IMPRESSION | | | OF | | | | | | CARDIOLOGY | | + + + + + + | ECG | MULTIPLE VENTRICULAR | | [facility] | | | IMPRESSION | PREMATURE COMPLEXES | | OF | | | | | | CARDIOLOGY | | + + + + + + | ECG | LATERAL INFARCT, AGE | | [facility] | | | IMPRESSION | INDETERMINATE | | OF | | | | | | CARDIOLOGY | | + + + + + + | ECG | PROBABLE ANTERIOR | | [facility] | | | IMPRESSION | INFARCT, ACUTE- ABNORMAL | | OF | | | | ECG - | | CARDIOLOGY | | + + + + + + | ECG | Electronically signed | | [facility] | | | IMPRESSION | by: JANN JORGENSEN | | OF | | | | 03-30-2017 09:32:11 | | CARDIOLOGY | | + + + + + [...] | + + + + + | [facility] | [address] | [place], [place] | | | CARDIOLOGY | [address] | [address] | | + + + + + 12 LEAD ECG (03/30/2017 12:44 AM PDT) + + + + + + | Component | Value | Ref Range | Performed | Pathologist | | | | | At | Signature | + + + + + + | VENTRICULAR | 95 | bpm | [facility] | | | RATE | | | OF | | | | | | CARDIOLOGY | | + + + + + + | ATRIAL RATE | 95 | ms | [facility] | | | | | | OF | | | | | | CARDIOLOGY | | + + + + + + | P-R | 160 | ms | [facility] | | | INTERVAL | | | OF | | | | | | CARDIOLOGY | | + + + + + + | P AXIS | 73 | deg | [facility] | | | | | | OF | | | | | | CARDIOLOGY | | + + + + + + | QRS | 98 | ms | [facility] | | | DURATION | | | OF | | | | | | CARDIOLOGY | | + + + + + + | QT | 356 | ms | [facility] | | | | | | OF | | | | | | CARDIOLOGY | | + + + + + + | QTCB | 448 | ms | [facility] | | | | | | OF | | | | | | CARDIOLOGY | | + + + + + + | R AXIS | 249 | deg | [facility] | | | | | | OF | | | | | | CARDIOLOGY | | + + + + + + | T AXIS | 74 | deg | [facility] | | | | | | OF | | | | | | CARDIOLOGY | | + + + + + + | ECG | SINUS RHYTHM | | [facility] | | | IMPRESSION | | | OF | | | | | | CARDIOLOGY | | + + + + + + | ECG | VENTRICULAR PREMATURE | | [facility] | | | IMPRESSION | COMPLEX | | OF | | | | | | CARDIOLOGY | | + + + + + + | ECG | PROBABLE ANTERIOR | | [facility] | | | IMPRESSION | INFARCT, ACUTE- ABNORMAL | | OF | | | | ECG - | | CARDIOLOGY | | + + + + + + | ECG | Electronically signed | | [facility] | | | IMPRESSION | by: JANN JORGENSEN | | OF | | | | 03-30-2017 09:32:20 | | CARDIOLOGY | | + + + + + [...] | + + + + + | [facility] | [address] | [place], [place] | | | CARDIOLOGY | [address] | [address] | | + + + + + CBC AND AUTO DIFF (03/30/2017 12:30 AM PDT) + + + + + + | Component | Value | Ref Range | Performed | Pathologist | | | | | At | Signature | + + + + + + | WHITE CELL | 10.17 | 3.50 - 10.80 | [facility] | | | COUNT | | K/cu mm | LABORATORY | | | | | | SERVICES, | | | | | | CORE | | + + + + + + | RED CELL | 3.00 (L) | 4.50 - 6.00 | [facility] | | | COUNT | | M/cu mm | LABORATORY | | | | | | SERVICES, | | | | | | CORE | | + + + + + + | HEMOGLOBIN | 9.1 (L) | 13.5 - 17.5 | [facility] | | | | | g/dL | LABORATORY | | | | | | SERVICES, | | | | | | CORE | | + + + + + + | HEMATOCRIT | 27.5 (L) | 41.0 - 53.0 % | [facility] | | | | | | LABORATORY | | | | | | SERVICES, | | | | | | CORE | | + + + + + + | MCV | 91.7 | 80.0 - 96.0 fL | [facility] | | | | | | LABORATORY | | | | | | SERVICES, | | | | | | CORE | | + + + + + + | MCHC | 33.1 | 33.0 - 35.5 | [facility] | | | | | g/dL | LABORATORY | | | | | | SERVICES, | | | | | | CORE | | + + + + + + | RDW SD | 49.2 (H) | 35.1 - 46.3 fL | [facility] | | | | | | LABORATORY | | | | | | SERVICES, | | | | | | CORE | | + + + + + + | PLATELET | 450 (H) | 150 - 400 K/cu | [facility] | | | COUNT | | mm | LABORATORY | | | | | | SERVICES, | | | | | | CORE | | + + + + + + | MPV | 10.0 | 9.7 - 12.3 fL | [facility] | | | | | | LABORATORY | | | | | | SERVICES, | | | | | | CORE | | + + + + + + | NRBC% | 0.0 | 0.0 - 0.3 % | [facility] | | | | | | LABORATORY | | | | | | SERVICES, | | | | | | CORE | | + + + + + + | NRBC# | 0.00 | 0.00 - 0.02 | [facility] | | | | | K/cu mm | LABORATORY | | | | | | SERVICES, | | | | | | CORE | | + + + + + + | NEUTROPHIL | 73.3 (H) | 50.0 - 70.0 % | [facility] | | | % | | | LABORATORY | | | | | | SERVICES, | | | | | | CORE | | + + + + + + | LYMPHOCYTE | 16.7 (L) | 18.0 - 42.0 % | [facility] | | | % | | | LABORATORY | | | | | | SERVICES, | | | | | | CORE | | + + + + + + | MONOCYTE % | 7.5 | 3.5 - 9.0 % | [facility] | | | | | | LABORATORY | | | | | | SERVICES, | | | | | | CORE | | + + + + + + | EOS % | 0.7 (L) | 1.0 - 3.0 % | [facility] | | | | | | LABORATORY | | | | | | SERVICES, | | | | | | CORE | | + + + + + + | BASO % | 0.2 | 0.0 - 2.0 % | [facility] | | | | | | LABORATORY | | | | | | SERVICES, | | | | | | CORE | | + + + + + + | IG% | 1.6 (H)Comment: Immature | 0.0 - 0.6 % | [facility] | | | | Granulocytes (IG) | | LABORATORY | | | | include metamyelocytes, | | SERVICES, | | | | myelocytes and | | CORE | | | | promyelocytes. Bands | | | | | | are not included in the | | | | | | IG count. Bands are | | | | | | included in the | | | | | | neutrophil count. | | | | + + + + + + | NEUTROPHIL | 7.46 | 1.80 - 7.70 | [facility] | | | # | | K/cu mm | LABORATORY | | | | | | SERVICES, | | | | | | CORE | | + + + + + + | LYMPHOCYTE | 1.70 | 1.00 - 4.80 | [facility] | | | # | | K/cu mm | LABORATORY | | | | | | SERVICES, | | | | | | CORE | | + + + + + + | MONOCYTE # | 0.76 | 0.10 - 0.90 | [facility] | | | | | K/cu mm | LABORATORY | | | | | | SERVICES, | | | | | | CORE | | + + + + + + | EOS # | 0.07 | 0.00 - 0.50 | [facility] | | | | | K/cu mm | LABORATORY | | | | | | SERVICES, | | | | | | CORE | | + + + + + + | BASO # | 0.02 | 0.00 - 0.10 | [facility] | | | | | K/cu mm | LABORATORY | | | | | | SERVICES, | | | | | | CORE | | + + + + + + | IG# | 0.16 (H) | 0.00 - 0.03 | [facility] | | | | | K/cu mm | LABORATORY | | | | | | SERVICES, | | | | | | CORE | | + + + + + + + + | Specimen | + + | Blood | + + + + + | Narrative | Performed At | + + + | Immature Granulocytes (IG) include metamyelocytes, myelocytes | [facility] | | and promyelocytes. Bands are not included in the IG count. Bands | LABORATORY | | are included in the neutrophil count. | [facility] | + + + + + + + + | Performing | Address | City/State/Zipcode | Phone Number | | Organization | | | | + + + + + | [facility] | [address] | [place] [address] | | | SERVICES, CORE | [address] | | | + + + + + INR (03/30/2017 12:30 AM PDT) + + + + + + | Component | Value | Ref Range | Performed | Pathologist | | | | | At | Signature | + + + + + + | INR | 2.24 (H) | 0.90 - 1.20 INR | [facility] | | | | | | LABORATORY | | | | | | SERVICES, | | | | | | CORE | | + + + + + + + + | Specimen | + + | Blood | + + + + + | Narrative | Performed At | + + + | INR Therapeutic ranges for full anticoagulation: INR for | [facility] | | Venous Thromboembolism (2.0 - 3.0) INR INR | LABORATORY | | for most patients with mech. valves (2.5 - 3.5) INR | [facility], CORE | + + + + + + + + | Performing | Address | City/State/Zipcode | Phone Number | | Organization | | | | + + + + + | [facility] | [address] | [place] [address] | | | SERVICES, [place] | [address] | | | + + + + + MAGNESIUM, PLASMA (03/30/2017 12:30 AM PDT) + +---------+ + + + | Component | Value | Ref Range | Performed | Pathologist | | | | | At | Signature | + +---------+ + + + | MAGNESIUM,P | 2.7 (H) | 1.8 - 2.5 mg/dL | [facility] | | | LASMA | | | LABORATORY | | | | | | SERVICES, | | | | | | CORE | | + +---------+ + + + + + | Specimen | + + | Blood | + + + + + + + | Performing | Address | City/State/Zipcode | Phone Number | | Organization | | | | + + + + + | [facility] | [address] | [place] [address] | | | SERVICES, CORE | [address] | | | + + + + + TROPONIN I, PLASMA (03/30/2017 12:30 AM PDT) + + + + + + | Component | Value | Ref Range | Performed | Pathologist | | | | | At | Signature | + + + + + + | TROPONIN I | 0.89 (H) | <0.80 ng/mL | [facility] | | | | | | LABORATORY | | | | | | SERVICES, | | | | | | CORE | | + + + + + + + + | Specimen | + + | Blood | + + + + + + + | Performing | Address | City/State/Zipcode | Phone Number | | Organization | | | | + + + + + | [facility] | [address] | [place] [address] | | | SERVICES, [place] | [address] | | | + + + + + CARDIOLOGY (03/30/2017 12:00 AM PDT) + + + | Narrative | Performed At | + + + | | | + + + CARDIOLOGY (03/30/2017 12:00 AM PDT) + + + | Narrative | Performed At | + + + | | | + + + CARDIOLOGY (03/30/2017 12:00 AM PDT) + + + | Narrative | Performed At | + + + | | | + + + CARDIOLOGY (03/30/2017 12:00 AM PDT) + + + | Narrative | Performed At | + + + | | | + + + CAPILLARY BLOOD GLUCOSE (NO CHG), POC (03/29/2017 11:24 PM PDT) + +---------+ + + + | Component | Value | Ref Range | Performed | Pathologist | | | | | At | Signature | + +---------+ + + + | BLOOD | 130 (H) | 70 - 99 mg/dL | [facility] - | | | GLUCOSE, | | | [facility] | | | POC | | | [facility] | | | | | | OF CARE | | | | | | TESTS | | + +---------+ + + + + + | Specimen | + + | | + + + + + + + | Performing | Address | City/State/Zipcode | Phone Number | | Organization | | | | + + + + + | [facility] | [address] | [place], [place] | | | [facility] S[facility] | [address] | [address] | | | TESTS | | | | + + + + + TROPONIN I, PLASMA (03/29/2017 9:19 PM PDT) + +-------+ + + + | Component | Value | Ref Range | Performed | Pathologist | | | | | At | Signature | + +-------+ + + + | TROPONIN I | 0.41 | <0.80 ng/mL | [facility] | | | | | | LABORATORY | | | | | | SERVICES, | | | | | | CORE | | + +-------+ + + + + + | Specimen | + + | Blood | + + + + + + + | Performing | Address | City/State/Zipcode | Phone Number | | Organization | | | | + + + + + | [facility] | [address] | [place] [address] | | | SERVICES, CORE | [address] | | | + + + + + 12 LEAD ECG (03/29/2017 8:57 PM PDT) + + + + + + | Component | Value | Ref Range | Performed | Pathologist | | | | | At | Signature | + + + + + + | VENTRICULAR | 91 | bpm | [facility] | | | RATE | | | OF | | | | | | CARDIOLOGY | | + + + + + + | ATRIAL RATE | 91 | ms | [facility] | | | | | | OF | | | | | | CARDIOLOGY | | + + + + + + | P-R | 156 | ms | [facility] | | | INTERVAL | | | OF | | | | | | CARDIOLOGY | | + + + + + + | P AXIS | 53 | deg | [facility] | | | | | | OF | | | | | | CARDIOLOGY | | + + + + + + | QRS | 106 | ms | [facility] | | | DURATION | | | OF | | | | | | CARDIOLOGY | | + + + + + + | QT | 348 | ms | [facility] | | | | | | OF | | | | | | CARDIOLOGY | | + + + + + + | QTCB | 429 | ms | [facility] | | | | | | OF | | | | | | CARDIOLOGY | | + + + + + + | R AXIS | 229 | deg | [facility] | | | | | | OF | | | | | | CARDIOLOGY | | + + + + + + | T AXIS | 112 | deg | [facility] | | | | | | OF | | | | | | CARDIOLOGY | | + + + + + + | ECG | SINUS RHYTHM | | [facility] | | | IMPRESSION | | | OF | | | | | | CARDIOLOGY | | + + + + + + | ECG | EXTENSIVE ANTERIOR | | [facility] | | | IMPRESSION | INFARCT, ACUTE- ABNORMAL | | OF | | | | ECG - | | CARDIOLOGY | | + + + + + + | ECG | Electronically signed | | [facility] | | | IMPRESSION | by: SOPHIE VELASQUEZ | | OF | | | | 03-29-2017 22:41:49 | | CARDIOLOGY | | + + + + + [...] | + + + + + | [facility] | [address] | [place], [place] | | | CARDIOLOGY | [facility] | [address] | | + + + + + CAPILLARY BLOOD GLUCOSE (NO CHG), POC (03/29/2017 8:16 PM PDT) + +---------+ + + + | Component | Value | Ref Range | Performed | Pathologist | | | | | At | Signature | + +---------+ + + + | BLOOD | 105 (H) | 70 - 99 mg/dL | [facility] - | | | GLUCOSE, | | | [facility] | | | POC | | | [facility] | | | | | | OF CARE | | | | | | TESTS | | + +---------+ + + + + + | Specimen | + + | | + + + + + + + | Performing | Address | City/State/Zipcode | Phone Number | | Organization | | | | + + + + + | [facility] | [address] | [place], [place] | | | [facility] | [address] | [address] | | | TESTS | | | | + + + + + CAPILLARY BLOOD GLUCOSE (NO CHG), POC (03/29/2017 3:40 PM PDT) + +---------+ + + + | Component | Value | Ref Range | Performed | Pathologist | | | | | At | Signature | + +---------+ + + + | BLOOD | 110 (H) | 70 - 99 mg/dL | [facility] | | | GLUCOSE, | | | [facility] | | | POC | | | [facility] | | | | | | OF CARE | | | | | | TESTS | | + +---------+ + + + + + | Specimen | + + | | + + + + + + + | Performing | Address | City/State/Zipcode | Phone Number | | Organization | | | | + + + + + | [facility] | [address] | [place], [place] | | | [facility] OF [facility] | [facility] | [address] | | | TESTS | | | | + + + + + HEPARIN, EITHER STANDARD / LMW, BLOOD (03/29/2017 2:40 PM PDT) + +-------+ + + + | Component | Value | Ref Range | Performed | Pathologist | | | | | At | Signature | + +-------+ + + + | HEPARIN, | 0.72 | U/mL | [facility] | | | STD LMW | | | LABORATORY | | | | | | SERVICES, | | | | | | CORE | | + +-------+ + + + + + | Specimen | + + | Blood | + + + + + | Narrative | Performed At | + + + | Heparin, Either STD/LMW - Therapeutic Ranges: Heparin, | [facility] | | Unfractionated: 0.35 - 0.70 U/mL Enoxaparin, LMWH: | LABORATORY | | 0.70 - 1.20 U/mL Dalteparin, LMWH: 0.70 - 1.20 U/mL | [facility] | | Tinzaparin, LMWH: Therapeutic range not established. | | | Preliminary | | | studies suggest range | | | similar to | | | dalteparin. Clinical | | | correlation | | | required. Heparin levels may be unreliable for: | | | Total bilirubin | | | >28.8 mg/dL | | | Triglycerides | | | >690 mg/dL or | | | Moderate to Gross Hemolysis | | + + + + + + + + | Performing | Address | City/State/Zipcode | Phone Number | | Organization | | | | + + + + + | [facility] | [address] | [place] [address] | | | [facility] | [address] | | | + + + + + CAPILLARY BLOOD GLUCOSE (NO CHG), POC (03/29/2017 10:00 AM PDT) + +-------+ + + + | Component | Value | Ref Range | Performed | Pathologist | | | | | At | Signature | + +-------+ + + + | BLOOD | 99 | 70 - 99 mg/dL | [facility] - | | | GLUCOSE, | | | [facility] | | | POC | | | [facility] | | | | | | OF CARE | | | | | | TESTS | | + +-------+ + + + + + | Specimen | + + | | + + + + + + + | Performing | Address | City/State/Zipcode | Phone Number | | Organization | | | | + + + + + | [facility] | [address] | [place], [place] | | | [facility] OF [facility] | [address] | [address] | | | TESTS | | | | + + + + + CBC AND AUTO DIFF (03/29/2017 7:36 AM PDT) + + + + + + | Component | Value | Ref Range | Performed | Pathologist | | | | | At | Signature | + + + + + + | WHITE CELL | 11.48 (H) | 3.50 - 10.80 | [facility] | | | COUNT | | K/cu mm | LABORATORY | | | | | | SERVICES, | | | | | | CORE | | + + + + + + | RED CELL | 3.07 (L) | 4.50 - 6.00 | [facility] | | | COUNT | | M/cu mm | LABORATORY | | | | | | SERVICES, | | | | | | CORE | | + + + + + + | HEMOGLOBIN | 9.4 (L) | 13.5 - 17.5 | [facility] | | | | | g/dL | LABORATORY | | | | | | SERVICES, | | | | | | CORE | | + + + + + + | HEMATOCRIT | 28.2 (L) | 41.0 - 53.0 % | [facility] | | | | | | LABORATORY | | | | | | SERVICES, | | | | | | CORE | | + + + + + + | MCV | 91.9 | 80.0 - 96.0 fL | [facility] | | | | | | LABORATORY | | | | | | SERVICES, | | | | | | CORE | | + + + + + + | MCHC | 33.3 | 33.0 - 35.5 | [facility] | | | | | g/dL | LABORATORY | | | | | | SERVICES, | | | | | | CORE | | + + + + + + | RDW SD | 49.9 (H) | 35.1 - 46.3 fL | [facility] | | | | | | LABORATORY | | | | | | SERVICES, | | | | | | CORE | | + + + + + + | PLATELET | 477 (H) | 150 - 400 K/cu | [facility] | | | COUNT | | mm | LABORATORY | | | | | | SERVICES, | | | | | | CORE | | + + + + + + | MPV | 10.3 | 9.7 - 12.3 fL | [facility] | | | | | | LABORATORY | | | | | | SERVICES, | | | | | | CORE | | + + + + + + | NRBC% | 0.0 | 0.0 - 0.3 % | [facility] | | | | | | LABORATORY | | | | | | SERVICES, | | | | | | CORE | | + + + + + + | NRBC# | 0.00 | 0.00 - 0.02 | [facility] | | | | | K/cu mm | LABORATORY | | | | | | SERVICES, | | | | | | CORE | | + + + + + + | NEUTROPHIL | 76.4 (H) | 50.0 - 70.0 % | [facility] | | | % | | | LABORATORY | | | | | | SERVICES, | | | | | | CORE | | + + + + + + | LYMPHOCYTE | 12.6 (L) | 18.0 - 42.0 % | [facility] | | | % | | | LABORATORY | | | | | | SERVICES, | | | | | | CORE | | + + + + + + | MONOCYTE % | 7.8 | 3.5 - 9.0 % | [facility] | | | | | | LABORATORY | | | | | | SERVICES, | | | | | | CORE | | + + + + + + | EOS % | 0.7 (L) | 1.0 - 3.0 % | [facility] | | | | | | LABORATORY | | | | | | SERVICES, | | | | | | CORE | | + + + + + + | BASO % | 0.3 | 0.0 - 2.0 % | [facility] | | | | | | LABORATORY | | | | | | SERVICES, | | | | | | CORE | | + + + + + + | IG% | 2.2 (H)Comment: Immature | 0.0 - 0.6 % | [facility] | | | | Granulocytes (IG) | | LABORATORY | | | | include metamyelocytes, | | SERVICES, | | | | myelocytes and | | CORE | | | | promyelocytes. Bands | | | | | | are not included in the | | | | | | IG count. Bands are | | | | | | included in the | | | | | | neutrophil count. | | | | + + + + + + | NEUTROPHIL | 8.78 (H) | 1.80 - 7.70 | [facility] | | | # | | K/cu mm | LABORATORY | | | | | | SERVICES, | | | | | | CORE | | + + + + + + | LYMPHOCYTE | 1.45 | 1.00 - 4.80 | [facility] | | | # | | K/cu mm | LABORATORY | | | | | | SERVICES, | | | | | | CORE | | + + + + + + | MONOCYTE # | 0.89 | 0.10 - 0.90 | [facility] | | | | | K/cu mm | LABORATORY | | | | | | SERVICES, | | | | | | CORE | | + + + + + + | EOS # | 0.08 | 0.00 - 0.50 | [facility] | | | | | K/cu mm | LABORATORY | | | | | | SERVICES, | | | | | | CORE | | + + + + + + | BASO # | 0.03 | 0.00 - 0.10 | [facility] | | | | | K/cu mm | LABORATORY | | | | | | SERVICES, | | | | | | CORE | | + + + + + + | IG# | 0.25 (H) | 0.00 - 0.03 | [facility] | | | | | K/cu mm | LABORATORY | | | | | | SERVICES, | | | | | | CORE | | + + + + + + + + | Specimen | + + | Blood | + + + + + | Narrative | Performed At | + + + | Immature Granulocytes (IG) include metamyelocytes, myelocytes | [facility] | | and promyelocytes. Bands are not included in the IG count. Bands | LABORATORY | | are included in the neutrophil count. | SERVICES, CORE | + + + + + + + + | Performing | Address | City/State/Zipcode | Phone Number | | Organization | | | | + + + + + | [facility] | [address] | [place] [address] | | | SERVICES, CORE | [address] | | | + + + + + BASIC METABOLIC SET (NA, K, CL, TCO2, BUN, CR, GLU, CA) (03/29/2017 7:36 AM PDT) + + + + + + | Component | Value | Ref Range | Performed | Pathologist | | | | | At | Signature | + + + + + + | GLUCOSE, | 121 (H) | 70 - 99 mg/dL | [facility] | | | PLASMA | | | LABORATORY | | | (LAB) | | | SERVICES, | | | | | | CORE | | + + + + + + | BUN, PLASMA | 49 (H) | 6 - 20 mg/dL | [facility] | | | (LAB) | | | LABORATORY | | | | | | SERVICES, | | | | | | CORE | | + + + + + + | CREATININE | 1.50 (H) | 0.70 - 1.30 | [facility] | | | PLASMA | | mg/dL | LABORATORY | | | (LAB) | | | SERVICES, | | | | | | CORE | | + + + + + + | EGFR | 57 (L) | >60 mL/min | [facility] | | | - | | | LABORATORY | | | SLOVENIAN | | | SERVICES, | | | | | | CORE | | + + + + + + | EGFR NON | 47 (L) | >60 mL/min | [facility] | | | -SOREN | | | LABORATORY | | | RICAN | | | SERVICES, | | | | | | CORE | | + + + + + + | SODIUM, | 131 (L) | 136 - 145 | [facility] | | | PLASMA | | mmol/L | LABORATORY | | | (LAB) | | | SERVICES, | | | | | | CORE | | + + + + + + | POTASSIUM, | 5.0 | 3.4 - 5.0 | [facility] | | | PLASMA | | mmol/L | LABORATORY | | | (LAB) | | | SERVICES, | | | | | | CORE | | + + + + + + | CHLORIDE, | 102 | 97 - 108 mmol/L | [facility] | | | PLASMA | | | LABORATORY | | | (LAB) | | | SERVICES, | | | | | | CORE | | + + + + + + | TOTAL CO2, | 21 | 21 - 32 mmol/L | [facility] | | | PLASMA | | | LABORATORY | | | (LAB) | | | SERVICES, | | | | | | CORE | | + + + + + + | CALCIUM, | 8.9 | 8.6 - 10.2 | [facility] | | | PLASMA | | mg/dL | LABORATORY | | | (LAB) | | | SERVICES, | | | | | | CORE | | + + + + + + | ANION GAP | 8 | mmol/L | [facility] | | | | | | LABORATORY | | | | | | SERVICES, | | | | | | CORE | | + + + + + + | POTASSIUM | No Hemo | | [facility] | | | CMNT | | | LABORATORY | | | | | | SERVICES, | | | | | | CORE | | + + + + + + + + | Specimen | + + | Blood | + + + + + | Narrative | Performed At | + + + | Adult glucose reference range change effective 7-12-17. GFR is | [facility] | | estimated using the MDRD equation recommended by the National Kidney | LABORATORY | | Disease Education Program. Estimated GFR Interpretive Information: | SERVICES, CORE | | <60 mL/min/1.73 sq m Chronic Kidney | | | Disease <15 mL/min/1.73 sq m Kidney | | | Failure Estimated GFR greater that 60 mL/min/1.73 sq m is of limited | | | clinical value. The MDRD equation is not valid in the following | | | situations: - Patients under 18 years of age - Severe malnutrition | | | or obesity - Vegetarian diet - Rapidly changing kidney function | | + + + + + + + + | Performing | Address | City/State/Zipcode | Phone Number | | Organization | | | | + + + + + | [facility] | [address] | [place] [address] | | | SERVICES, CORE | [address] | | | + + + + + INR (03/29/2017 7:36 AM PDT) + + + + + + | Component | Value | Ref Range | Performed | Pathologist | | | | | At | Signature | + + + + + + | INR | 2.48 (H) | 0.90 - 1.20 INR | [facility] | | | | | | LABORATORY | | | | | | SERVICES, | | | | | | CORE | | + + + + + + + + | Specimen | + + | Blood | + + + + + | Narrative | Performed At | + + + | INR Therapeutic ranges for full anticoagulation: INR for | [facility] | | Venous Thromboembolism (2.0 - 3.0) INR INR | LABORATORY | | for most patients with mech. valves (2.5 - 3.5) INR | [facility] | + + + + + + + + | Performing | Address | City/State/Zipcode | Phone Number | | Organization | | | | + + + + + | [facility] | [address] | [place] [address] | | | [facility] | [address] | | | + + + + + MAGNESIUM, PLASMA (03/29/2017 7:36 AM PDT) + +---------+ + + + | Component | Value | Ref Range | Performed | Pathologist | | | | | At | Signature | + +---------+ + + + | MAGNESIUM,P | 2.7 (H) | 1.8 - 2.5 mg/dL | [facility] | | | LASMA | | | LABORATORY | | | | | | SERVICES, | | | | | | CORE | | + +---------+ + + + + + | Specimen | + + | Blood | + + + + + + + | Performing | Address | City/State/Zipcode | Phone Number | | Organization | | | | + + + + + | [facility] | [address] | [place] [address] | | | SERVICES, CORE | [address] | | | + + + + + HEPARIN, EITHER STANDARD / LMW, BLOOD (03/29/2017 5:59 AM PDT) + +-------+ + + + | Component | Value | Ref Range | Performed | Pathologist | | | | | At | Signature | + +-------+ + + + | HEPARIN, | 1.10 | U/mL | [facility] | | | STD LMW | | | LABORATORY | | | | | | SERVICES, | | | | | | CORE | | + +-------+ + + + + + | Specimen | + + | Blood | + + + + + | Narrative | Performed At | + + + | LVAD/Advanced Heart Failure Heparin Protocol Heparin level 6 | [facility] | | hrs after every heparin rate change; If heparin level within target | LABORATORY | | range for 2 consecutive results, recheck every AM. Heparin, Either | SERVICES, CORE | | STD/LMW - Therapeutic Ranges: Heparin, Unfractionated: 0.35 - | | | 0.70 U/mL Enoxaparin, LMWH: 0.70 - 1.20 U/mL | | | Dalteparin, LMWH: 0.70 - 1.20 U/mL Tinzaparin, | | | LMWH: Therapeutic range not established. | | | Preliminary | | | studies suggest range | | | similar to | | | dalteparin. Clinical | | | correlation | | | required. Heparin levels may be unreliable for: | | | Total bilirubin | | | >28.8 mg/dL | | | Triglycerides | | | >690 mg/dL or | | | Moderate to Gross Hemolysis | | + + + + + + + + | Performing | Address | City/State/Zipcode | Phone Number | | Organization | | | | + + + + + | [facility] | [address] | [place] [address] | | | SERVICES, CORE | [address] | | | + + + + + CARDIOLOGY (03/29/2017 12:00 AM PDT) + + + | Narrative | Performed At | + + + | | | + + + CARDIOLOGY (03/29/2017 12:00 AM PDT) + + + | Narrative | Performed At | + + + | | | + + + HEPARIN, EITHER STANDARD / LMW, BLOOD (03/28/2017 10:22 PM PDT) + +-------+ + + + | Component | Value | Ref Range | Performed | Pathologist | | | | | At | Signature | + +-------+ + + + | HEPARIN, | 1.00 | U/mL | [facility] | | | STD LMW | | | LABORATORY | | | | | | SERVICES, | | | | | | CORE | | + +-------+ + + + + + | Specimen | + + | Blood | + + + + + | Narrative | Performed At | + + + | LVAD/Advanced Heart Failure Heparin Protocol Heparin level 6 | [facility] | | hrs after every heparin rate change; If heparin level within target | LABORATORY | | range for 2 consecutive results, recheck every AM. Heparin, Either | SERVICES, CORE | | STD/LMW - Therapeutic Ranges: Heparin, Unfractionated: 0.35 - | | | 0.70 U/mL Enoxaparin, LMWH: 0.70 - 1.20 U/mL | | | Dalteparin, LMWH: 0.70 - 1.20 U/mL Tinzaparin, | | | LMWH: Therapeutic range not established. | | | Preliminary | | | studies suggest range | | | similar to | | | dalteparin. Clinical | | | correlation | | | required. Heparin levels may be unreliable for: | | | Total bilirubin | | | >28.8 mg/dL | | | Triglycerides | | | >690 mg/dL or | | | Moderate to Gross Hemolysis | | + + + + + + + + | Performing | Address | City/State/Zipcode | Phone Number | | Organization | | | | + + + + + | [facility] | [address] | [place] [address] | | | SERVICES, CORE | [address] | | | + + + + + CAPILLARY BLOOD GLUCOSE (NO CHG), POC (03/28/2017 9:56 PM PDT) + +---------+ + + + | Component | Value | Ref Range | Performed | Pathologist | | | | | At | Signature | + +---------+ + + + | BLOOD | 133 (H) | 70 - 99 mg/dL | [facility] | | | GLUCOSE, | | | [facility] | | | POC | | | [facility] | | | | | | OF CARE | | | | | | TESTS | | + +---------+ + + + + + | Specimen | + + | | + + + + + + + | Performing | Address | City/State/Zipcode | Phone Number | | Organization | | | | + + + + + | [facility] | [address] | [place], [place] | | | [facility] OF CARE | [address] | [address] | | | TESTS | | | | + + + + + CAPILLARY BLOOD GLUCOSE (NO CHG), POC (03/28/2017 6:46 PM PDT) + +---------+ + + + | Component | Value | Ref Range | Performed | Pathologist | | | | | At | Signature | + +---------+ + + + | BLOOD | 129 (H) | 70 - 99 mg/dL | [facility] - | | | GLUCOSE, | | | [facility] | | | POC | | | [facility] | | | | | | OF CARE | | | | | | TESTS | | + +---------+ + + + + + | Specimen | + + | | + + + + + + + | Performing | Address | City/State/Zipcode | Phone Number | | Organization | | | | + + + + + | [facility] | [address] | [place], [place] | | | [facility] | [address] | [address] | | | TESTS | | | | + + + + + BASIC METABOLIC SET (NA, K, CL, TCO2, BUN, CR, GLU, CA) (03/28/2017 5:27 PM PDT) + + + + + + | Component | Value | Ref Range | Performed | Pathologist | | | | | At | Signature | + + + + + + | GLUCOSE, | 112 (H) | 70 - 99 mg/dL | [facility] | | | PLASMA | | | LABORATORY | | | (LAB) | | | SERVICES, | | | | | | CORE | | + + + + + + | BUN, PLASMA | 47 (H) | 6 - 20 mg/dL | [facility] | | | (LAB) | | | LABORATORY | | | | | | SERVICES, | | | | | | CORE | | + + + + + + | CREATININE | 1.40 (H) | 0.70 - 1.30 | [facility] | | | PLASMA | | mg/dL | LABORATORY | | | (LAB) | | | SERVICES, | | | | | | CORE | | + + + + + + | EGFR | >60 | >60 mL/min | [facility] | | | - | | | LABORATORY | | | SLOVENIAN | | | SERVICES, | | | | | | CORE | | + + + + + + | EGFR NON | 51 (L) | >60 mL/min | [facility] | | | -SOREN | | | LABORATORY | | | RICAN | | | SERVICES, | | | | | | CORE | | + + + + + + | SODIUM, | 132 (L) | 136 - 145 | [facility] | | | PLASMA | | mmol/L | LABORATORY | | | (LAB) | | | SERVICES, | | | | | | CORE | | + + + + + + | POTASSIUM, | 5.1 (H) | 3.4 - 5.0 | [facility] | | | PLASMA | | mmol/L | LABORATORY | | | (LAB) | | | SERVICES, | | | | | | CORE | | + + + + + + | CHLORIDE, | 101 | 97 - 108 mmol/L | [facility] | | | PLASMA | | | LABORATORY | | | (LAB) | | | SERVICES, | | | | | | CORE | | + + + + + + | TOTAL CO2, | 22 | 21 - 32 mmol/L | [facility] | | | PLASMA | | | LABORATORY | | | (LAB) | | | SERVICES, | | | | | | CORE | | + + + + + + | CALCIUM, | 9.0 | 8.6 - 10.2 | [facility] | | | PLASMA | | mg/dL | LABORATORY | | | (LAB) | | | SERVICES, | | | | | | CORE | | + + + + + + | ANION GAP | 9 | mmol/L | [facility] | | | | | | LABORATORY | | | | | | SERVICES, | | | | | | CORE | | + + + + + + | POTASSIUM | No Hemo | | [facility] | | | CMNT | | | LABORATORY | | | | | | SERVICES, | | | | | | CORE | | + + + + + + + + | Specimen | + + | Blood | + + + + + | Narrative | Performed At | + + + | Adult glucose reference range change effective 7-12-17. GFR is | [facility] | | estimated using the MDRD equation recommended by the National Kidney | LABORATORY | | Disease Education Program. Estimated GFR Interpretive Information: | SERVICES, CORE | | <60 mL/min/1.73 sq m Chronic Kidney | | | Disease <15 mL/min/1.73 sq m Kidney | | | Failure Estimated GFR greater that 60 mL/min/1.73 sq m is of limited | | | clinical value. The MDRD equation is not valid in the following | | | situations: - Patients under 18 years of age - Severe malnutrition | | | or obesity - Vegetarian diet - Rapidly changing kidney function | | + + + + + + + + | Performing | Address | City/State/Zipcode | Phone Number | | Organization | | | | + + + + + | [facility] | [address] | [place] [address] | | | ARASH, [facility]НА | [address] | | | + + + + + HEPARIN, EITHER STANDARD / LMW, BLOOD (03/28/2017 2:19 PM PDT) + +-------+ + + + | Component | Value | Ref Range | Performed | Pathologist | | | | | At | Signature | + +-------+ + + + | HEPARIN, | 0.19 | U/mL | [facility] | | | STD LMW | | | LABORATORY | | | | | | SERVICES, | | | | | | CORE | | + +-------+ + + + + + | Specimen | + + | Blood | + + + + + | Narrative | Performed At | + + + | LVAD/Advanced Heart Failure Heparin Protocol Heparin level 6 | [facility] | | hrs after every heparin rate change; If heparin level within target | LABORATORY | | range for 2 consecutive results, recheck every AM. Heparin, Either | SERVICES, CORE | | STD/LMW - Therapeutic Ranges: Heparin, Unfractionated: 0.35 - | | | 0.70 U/mL Enoxaparin, LMWH: 0.70 - 1.20 U/mL | | | Dalteparin, LMWH: 0.70 - 1.20 U/mL Tinzaparin, | | | LMWH: Therapeutic range not established. | | | Preliminary | | | studies suggest range | | | similar to | | | dalteparin. Clinical | | | correlation | | | required. Heparin levels may be unreliable for: | | | Total bilirubin | | | >28.8 mg/dL | | | Triglycerides | | | >690 mg/dL or | | | Moderate to Gross Hemolysis | | + + + + + + + + | Performing | Address | City/State/Zipcode | Phone Number | | Organization | | | | + + + + + | [facility] | [address] | [place] [address] | | | SERVICES, CORE | [address] | | | + + + + + BASIC METABOLIC SET (NA, K, CL, TCO2, BUN, CR, GLU, CA) (03/28/2017 2:18 PM PDT) + + + + + + | Component | Value | Ref Range | Performed | Pathologist | | | | | At | Signature | + + + + + + | GLUCOSE, | 128 (H) | 70 - 99 mg/dL | [facility] | | | PLASMA | | | LABORATORY | | | (LAB) | | | SERVICES, | | | | | | CORE | | + + + + + + | BUN, PLASMA | 48 (H) | 6 - 20 mg/dL | [facility] | | | (LAB) | | | LABORATORY | | | | | | SERVICES, | | | | | | CORE | | + + + + + + | CREATININE | 1.45 (H) | 0.70 - 1.30 | [facility] | | | PLASMA | | mg/dL | LABORATORY | | | (LAB) | | | SERVICES, | | | | | | CORE | | + + + + + + | EGFR | 60 (L) | >60 mL/min | [facility] | | | - | | | LABORATORY | | | SLOVENIAN | | | SERVICES, | | | | | | CORE | | + + + + + + | EGFR NON | 49 (L) | >60 mL/min | [facility] | | | -SOREN | | | LABORATORY | | | RICAN | | | SERVICES, | | | | | | CORE | | + + + + + + | SODIUM, | 129 (L) | 136 - 145 | [facility] | | | PLASMA | | mmol/L | LABORATORY | | | (LAB) | | | SERVICES, | | | | | | CORE | | + + + + + + | POTASSIUM, | 8.5 (HH) | 3.4 - 5.0 | [facility] | | | PLASMA | | mmol/L | LABORATORY | | | (LAB) | | | SERVICES, | | | | | | CORE | | + + + + + + | CHLORIDE, | 99 | 97 - 108 mmol/L | [facility] | | | PLASMA | | | LABORATORY | | | (LAB) | | | SERVICES, | | | | | | CORE | | + + + + + + | TOTAL CO2, | 23 | 21 - 32 mmol/L | [facility] | | | PLASMA | | | LABORATORY | | | (LAB) | | | SERVICES, | | | | | | CORE | | + + + + + + | CALCIUM, | 8.5 (L) | 8.6 - 10.2 | [facility] | | | PLASMA | | mg/dL | LABORATORY | | | (LAB) | | | SERVICES, | | | | | | CORE | | + + + + + + | ANION GAP | 7 | mmol/L | [facility] | | | | | | LABORATORY | | | | | | SERVICES, | | | | | | CORE | | + + + + + + | POTASSIUM | Mk Hemo | | [facility] | | | CMNT | | | LABORATORY | | | | | | SERVICES, | | | | | | CORE | | + + + + + + + + | Specimen | + + | Blood | + + + + + | Narrative | Performed At | + + + | Adult glucose reference range change effective 7-12-17. Sample | [facility] | | hemolyzed. Results for K, Total Bili, Direct Bili, AST, LDH, or HDL | LABORATORY | | may be inaccurate. Refer to comment under test result. GFR is | SERVICES, CORE | | estimated using the MDRD equation recommended by the National Kidney | | | Disease Education Program. Estimated GFR Interpretive Information: | | | <60 mL/min/1.73 sq m Chronic Kidney | | | Disease <15 mL/min/1.73 sq m Kidney | | | Failure Estimated GFR greater that 60 mL/min/1.73 sq m is of limited | | | clinical value. The MDRD equation is not valid in the following | | | situations: - Patients under 18 years of age - Severe malnutrition | | | or obesity - Vegetarian diet - Rapidly changing kidney function | | + + + + + + + + | Performing | Address | City/State/Zipcode | Phone Number | | Organization | | | | + + + + + | [facility] | [address] | [place] [address] | | | [place], [place] | [address] | | | + + + + + CAPILLARY BLOOD GLUCOSE (NO CHG), POC (03/28/2017 1:22 PM PDT) + +-------+ + + + | Component | Value | Ref Range | Performed | Pathologist | | | | | At | Signature | + +-------+ + + + | BLOOD | 93 | 70 - 99 mg/dL | [facility] - | | | GLUCOSE, | | | [facility] | | | POC | | | [facility] | | | | | | OF CARE | | | | | | TESTS | | + +-------+ + + + + + | Specimen | + + | | + + + + + + + | Performing | Address | City/State/Zipcode | Phone Number | | Organization | | | | + + + + + | [facility] | [address] | [place], [place] | | | [facility] | [facility] | [address] | | | TESTS | | | | + + + + + CAPILLARY BLOOD GLUCOSE (NO CHG), POC (03/28/2017 10:31 AM PDT) + +---------+ + + + | Component | Value | Ref Range | Performed | Pathologist | | | | | At | Signature | + +---------+ + + + | BLOOD | 123 (H) | 70 - 99 mg/dL | [facility] - | | | GLUCOSE, | | | [facility] | | | POC | | | [facility] | | | | | | OF CARE | | | | | | TESTS | | + +---------+ + + + + + | Specimen | + + | | + + + + + + + | Performing | Address | City/State/Zipcode | Phone Number | | Organization | | | | + + + + + | [facility] | [address] | [place], [place] | | | [facility] [place] | [address] | [address] | | | TESTS | | | | + + + + + CBC AND AUTO DIFF (03/28/2017 4:13 AM PDT) + + + + + + | Component | Value | Ref Range | Performed | Pathologist | | | | | At | Signature | + + + + + + | WHITE CELL | 11.82 (H) | 3.50 - 10.80 | [facility] | | | COUNT | | K/cu mm | LABORATORY | | | | | | SERVICES, | | | | | | CORE | | + + + + + + | RED CELL | 2.79 (L) | 4.50 - 6.00 | [facility] | | | COUNT | | M/cu mm | LABORATORY | | | | | | SERVICES, | | | | | | CORE | | + + + + + + | HEMOGLOBIN | 8.4 (L) | 13.5 - 17.5 | [facility] | | | | | g/dL | LABORATORY | | | | | | SERVICES, | | | | | | CORE | | + + + + + + | HEMATOCRIT | 25.7 (L) | 41.0 - 53.0 % | [facility] | | | | | | LABORATORY | | | | | | SERVICES, | | | | | | CORE | | + + + + + + | MCV | 92.1 | 80.0 - 96.0 fL | [facility] | | | | | | LABORATORY | | | | | | SERVICES, | | | | | | CORE | | + + + + + + | MCHC | 32.7 | 33.0 - 35.5 | [facility] | | | | | g/dL | LABORATORY | | | | | | SERVICES, | | | | | | CORE | | + + + + + + | RDW SD | 49.5 (H) | 35.1 - 46.3 fL | [facility] | | | | | | LABORATORY | | | | | | SERVICES, | | | | | | CORE | | + + + + + + | PLATELET | 406 (H) | 150 - 400 K/cu | [facility] | | | COUNT | | mm | LABORATORY | | | | | | SERVICES, | | | | | | CORE | | + + + + + + | MPV | 10.2 | 9.7 - 12.3 fL | [facility] | | | | | | LABORATORY | | | | | | SERVICES, | | | | | | CORE | | + + + + + + | NRBC% | 0.0 | 0.0 - 0.3 % | [facility] | | | | | | LABORATORY | | | | | | SERVICES, | | | | | | CORE | | + + + + + + | NRBC# | 0.00 | 0.00 - 0.02 | [facility] | | | | | K/cu mm | LABORATORY | | | | | | SERVICES, | | | | | | CORE | | + + + + + + | NEUTROPHIL | 74.7 (H) | 50.0 - 70.0 % | [facility] | | | % | | | LABORATORY | | | | | | SERVICES, | | | | | | CORE | | + + + + + + | LYMPHOCYTE | 14.8 (L) | 18.0 - 42.0 % | [facility] | | | % | | | LABORATORY | | | | | | SERVICES, | | | | | | CORE | | + + + + + + | MONOCYTE % | 7.0 | 3.5 - 9.0 % | [facility] | | | | | | LABORATORY | | | | | | SERVICES, | | | | | | CORE | | + + + + + + | EOS % | 0.9 (L) | 1.0 - 3.0 % | [facility] | | | | | | LABORATORY | | | | | | SERVICES, | | | | | | CORE | | + + + + + + | BASO % | 0.2 | 0.0 - 2.0 % | [facility] | | | | | | LABORATORY | | | | | | SERVICES, | | | | | | CORE | | + + + + + + | IG% | 2.4 (H)Comment: Immature | 0.0 - 0.6 % | [facility] | | | | Granulocytes (IG) | | LABORATORY | | | | include metamyelocytes, | | SERVICES, | | | | myelocytes and | | CORE | | | | promyelocytes. Bands | | | | | | are not included in the | | | | | | IG count. Bands are | | | | | | included in the | | | | | | neutrophil count. | | | | + + + + + + | NEUTROPHIL | 8.83 (H) | 1.80 - 7.70 | [facility] | | | # | | K/cu mm | LABORATORY | | | | | | SERVICES, | | | | | | CORE | | + + + + + + | LYMPHOCYTE | 1.75 | 1.00 - 4.80 | [facility] | | | # | | K/cu mm | LABORATORY | | | | | | SERVICES, | | | | | | CORE | | + + + + + + | MONOCYTE # | 0.83 | 0.10 - 0.90 | [facility] | | | | | K/cu mm | LABORATORY | | | | | | SERVICES, | | | | | | CORE | | + + + + + + | EOS # | 0.11 | 0.00 - 0.50 | [facility] | | | | | K/cu mm | LABORATORY | | | | | | SERVICES, | | | | | | CORE | | + + + + + + | BASO # | 0.02 | 0.00 - 0.10 | [facility] | | | | | K/cu mm | LABORATORY | | | | | | SERVICES, | | | | | | CORE | | + + + + + + | IG# | 0.28 (H) | 0.00 - 0.03 | [facility] | | | | | K/cu mm | LABORATORY | | | | | | SERVICES, | | | | | | CORE | | + + + + + + + + | Specimen | + + | Blood | + + + + + | Narrative | Performed At | + + + | Immature Granulocytes (IG) include metamyelocytes, myelocytes | [facility] | | and promyelocytes. Bands are not included in the IG count. Bands | LABORATORY | | are included in the neutrophil count. | [facility] | + + + + + + + + | Performing | Address | City/State/Zipcode | Phone Number | | Organization | | | | + + + + + | [facility] | [address] | [place] [address] | | | [facility]TO[facility] | [address] | | | + + + + + BASIC METABOLIC SET (NA, K, CL, TCO2, BUN, CR, GLU, CA) (03/28/2017 4:13 AM PDT) + + + + + + | Component | Value | Ref Range | Performed | Pathologist | | | | | At | Signature | + + + + + + | GLUCOSE, | 119 (H) | 70 - 99 mg/dL | [facility] | | | PLASMA | | | LABORATORY | | | (LAB) | | | SERVICES, | | | | | | CORE | | + + + + + + | BUN, PLASMA | 47 (H) | 6 - 20 mg/dL | [facility] | | | (LAB) | | | LABORATORY | | | | | | SERVICES, | | | | | | CORE | | + + + + + + | CREATININE | 1.33 (H) | 0.70 - 1.30 | [facility] | | | PLASMA | | mg/dL | LABORATORY | | | (LAB) | | | SERVICES, | | | | | | CORE | | + + + + + + | EGFR | >60 | >60 mL/min | [facility] | | | - | | | LABORATORY | | | SLOVENIAN | | | SERVICES, | | | | | | CORE | | + + + + + + | EGFR NON | 54 (L) | >60 mL/min | [facility] | | | -SOREN | | | LABORATORY | | | RICAN | | | SERVICES, | | | | | | CORE | | + + + + + + | SODIUM, | 133 (L) | 136 - 145 | [facility] | | | PLASMA | | mmol/L | LABORATORY | | | (LAB) | | | SERVICES, | | | | | | CORE | | + + + + + + | POTASSIUM, | 4.4 | 3.4 - 5.0 | [facility] | | | PLASMA | | mmol/L | LABORATORY | | | (LAB) | | | SERVICES, | | | | | | CORE | | + + + + + + | CHLORIDE, | 100 | 97 - 108 mmol/L | [facility] | | | PLASMA | | | LABORATORY | | | (LAB) | | | SERVICES, | | | | | | CORE | | + + + + + + | TOTAL CO2, | 22 | 21 - 32 mmol/L | [facility] | | | PLASMA | | | LABORATORY | | | (LAB) | | | SERVICES, | | | | | | CORE | | + + + + + + | CALCIUM, | 8.6 | 8.6 - 10.2 | [facility] | | | PLASMA | | mg/dL | LABORATORY | | | (LAB) | | | SERVICES, | | | | | | CORE | | + + + + + + | ANION GAP | 11 | mmol/L | [facility] | | | | | | LABORATORY | | | | | | SERVICES, | | | | | | CORE | | + + + + + + | POTASSIUM | No Hemo | | [facility] | | | CMNT | | | LABORATORY | | | | | | SERVICES, | | | | | | CORE | | + + + + + + + + | Specimen | + + | Blood | + + + + + | Narrative | Performed At | + + + | Adult glucose reference range change effective 7-12-17. GFR is | [facility] | | estimated using the MDRD equation recommended by the National Kidney | LABORATORY | | Disease Education Program. Estimated GFR Interpretive Information: | SERVICES, CORE | | <60 mL/min/1.73 sq m Chronic Kidney | | | Disease <15 mL/min/1.73 sq m Kidney | | | Failure Estimated GFR greater that 60 mL/min/1.73 sq m is of limited | | | clinical value. The MDRD equation is not valid in the following | | | situations: - Patients under 18 years of age - Severe malnutrition | | | or obesity - Vegetarian diet - Rapidly changing kidney function | | + + + + + + + + | Performing | Address | City/State/Zipcode | Phone Number | | Organization | | | | + + + + + | [facility] | [address] | [place] [address] | | | SERVICES, CORE | [address] | | | + + + + + HEPARIN, EITHER STANDARD / LMW, BLOOD (03/28/2017 4:13 AM PDT) + +-------+ + + + | Component | Value | Ref Range | Performed | Pathologist | | | | | At | Signature | + +-------+ + + + | HEPARIN, | 0.74 | U/mL | [facility] | | | STD LMW | | | LABORATORY | | | | | | SERVICES, | | | | | | CORE | | + +-------+ + + + + + | Specimen | + + | Blood | + + + + + | Narrative | Performed At | + + + | Heparin, Either STD/LMW - Therapeutic Ranges: Heparin, | [facility] | | Unfractionated: 0.35 - 0.70 U/mL Enoxaparin, LMWH: | LABORATORY | | 0.70 - 1.20 U/mL Dalteparin, LMWH: 0.70 - 1.20 U/mL | SERVICES, CORE | | Tinzaparin, LMWH: Therapeutic range not established. | | | Preliminary | | | studies suggest range | | | similar to | | | dalteparin. Clinical | | | correlation | | | required. Heparin levels may be unreliable for: | | | Total bilirubin | | | >28.8 mg/dL | | | Triglycerides | | | >690 mg/dL or | | | Moderate to Gross Hemolysis | | + + + + + + + + | Performing | Address | City/State/Zipcode | Phone Number | | Organization | | | | + + + + + | [facility] | [address] | [place] [address] | | | SERVICES, ИРИНА | [address] | | | + + + + + INR (03/28/2017 4:13 AM PDT) + + + + + + | Component | Value | Ref Range | Performed | Pathologist | | | | | At | Signature | + + + + + + | INR | 1.93 (H) | 0.90 - 1.20 INR | [facility] | | | | | | LABORATORY | | | | | | SERVICES, | | | | | | CORE | | + + + + + + + + | Specimen | + + | Blood | + + + + + | Narrative | Performed At | + + + | INR Therapeutic ranges for full anticoagulation: INR for | [facility] | | Venous Thromboembolism (2.0 - 3.0) INR INR | LABORATORY | | for most patients with mech. valves (2.5 - 3.5) INR | [facility] | + + + + + + + + | Performing | Address | City/State/Zipcode | Phone Number | | Organization | | | | + + + + + | [facility] | [address] | [place] [address] | | | SERVICES, ИРИНА | [address] | | | + + + + + MAGNESIUM, PLASMA (03/28/2017 4:13 AM PDT) + +---------+ + + + | Component | Value | Ref Range | Performed | Pathologist | | | | | At | Signature | + +---------+ + + + | MAGNESIUM,P | 2.7 (H) | 1.8 - 2.5 mg/dL | [facility] | | | FEI | | | LABORATORY | | | | | | ARASH, | | | | | | ИРИНА | | + +---------+ + + + + + | Specimen | + + | Blood | + + + + + + + | Performing | Address | City/State/Zipcode | Phone Number | | Organization | | | | + + + + + | [facility] | [address] | [place] [address] | | | ARASH, ИРИНА | [address] | | | + + + + + CAPILLARY BLOOD GLUCOSE (NO CHG), POC (03/28/2017 12:01 AM PDT) + +---------+ + + + | Component | Value | Ref Range | Performed | Pathologist | | | | | At | Signature | + +---------+ + + + | BLOOD | 120 (H) | 70 - 99 mg/dL | [facility] - | | | GLUCOSE, | | | [facility] | | | POC | | | [facility] | | | | | | OF CARE | | | | | | TESTS | | + +---------+ + + + + + | Specimen | + + | | + + + + + + + | Performing | Address | City/State/Zipcode | Phone Number | | Organization | | | | + + + + + | [facility] | [address] | [place], [place] | | | [facility] | [address] | [address] | | | TESTS | | | | + + + + + CARDIOLOGY (03/28/2017 12:00 AM PDT) + + + | Narrative | Performed At | + + + | | | + + + CARDIOLOGY (03/28/2017 12:00 AM PDT) + + + | Narrative | Performed At | + + + | | | + + + CAPILLARY BLOOD GLUCOSE (NO CHG), POC (03/27/2017 7:32 PM PDT) + +---------+ + + + | Component | Value | Ref Range | Performed | Pathologist | | | | | At | Signature | + +---------+ + + + | BLOOD | 148 (H) | 70 - 99 mg/dL | [facility] - | | | GLUCOSE, | | | [facility] | | | POC | | | [facility] | | | | | | OF CARE | | | | | | TESTS | | + +---------+ + + + + + | Specimen | + + | | + + + + + + + | Performing | Address | City/State/Zipcode | Phone Number | | Organization | | | | + + + + + | [facility] | [address] | [place], [place] | | | [facility] | [address] | [address] | | | TESTS | | | | + + + + + CAPILLARY BLOOD GLUCOSE (NO CHG), POC (03/27/2017 1:56 PM PDT) + +---------+ + + + | Component | Value | Ref Range | Performed | Pathologist | | | | | At | Signature | + +---------+ + + + | BLOOD | 117 (H) | 70 - 99 mg/dL | [facility] - | | | GLUCOSE, | | | [facility] | | | POC | | | [facility] | | | | | | OF CARE | | | | | | TESTS | | + +---------+ + + + + + | Specimen | + + | | + + + + + + + | Performing | Address | City/State/Zipcode | Phone Number | | Organization | | | | + + + + + | [facility] | [address] | [place], [place] | | | [facility] | [address] | [address] | | | TESTS | | | | + + + + + CAPILLARY BLOOD GLUCOSE (NO CHG), POC (03/27/2017 9:01 AM PDT) + +---------+ + + + | Component | Value | Ref Range | Performed | Pathologist | | | | | At | Signature | + +---------+ + + + | BLOOD | 142 (H) | 70 - 99 mg/dL | [facility] - | | | GLUCOSE, | | | [facility] | | | POC | | | [facility] | | | | | | OF CARE | | | | | | TESTS | | + +---------+ + + + + + | Specimen | + + | | + + + + + + + | Performing | Address | City/State/Zipcode | Phone Number | | Organization | | | | + + + + + | [facility] | [address] | [place], [place] | | | [facility] [place] | [address] | [address] | | | TESTS | | | | + + + + + CBC AND AUTO DIFF (03/27/2017 3:51 AM PDT) + + + + + + | Component | Value | Ref Range | Performed | Pathologist | | | | | At | Signature | + + + + + + | WHITE CELL | 14.20 (H) | 3.50 - 10.80 | [facility] | | | COUNT | | K/cu mm | LABORATORY | | | | | | SERVICES, | | | | | | CORE | | + + + + + + | RED CELL | 2.75 (L) | 4.50 - 6.00 | [facility] | | | COUNT | | M/cu mm | LABORATORY | | | | | | SERVICES, | | | | | | CORE | | + + + + + + | HEMOGLOBIN | 8.3 (L) | 13.5 - 17.5 | [facility] | | | | | g/dL | LABORATORY | | | | | | SERVICES, | | | | | | CORE | | + + + + + + | HEMATOCRIT | 25.6 (L) | 41.0 - 53.0 % | [facility] | | | | | | LABORATORY | | | | | | SERVICES, | | | | | | CORE | | + + + + + + | MCV | 93.1 | 80.0 - 96.0 fL | [facility] | | | | | | LABORATORY | | | | | | SERVICES, | | | | | | CORE | | + + + + + + | MCHC | 32.4 | 33.0 - 35.5 | [facility] | | | | | g/dL | LABORATORY | | | | | | SERVICES, | | | | | | CORE | | + + + + + + | RDW SD | 50.0 (H) | 35.1 - 46.3 fL | [facility] | | | | | | LABORATORY | | | | | | SERVICES, | | | | | | CORE | | + + + + + + | PLATELET | 383 | 150 - 400 K/cu | [facility] | | | COUNT | | mm | LABORATORY | | | | | | SERVICES, | | | | | | CORE | | + + + + + + | MPV | 10.5 | 9.7 - 12.3 fL | [facility] | | | | | | LABORATORY | | | | | | SERVICES, | | | | | | CORE | | + + + + + + | NRBC% | 0.3 | 0.0 - 0.3 % | [facility] | | | | | | LABORATORY | | | | | | SERVICES, | | | | | | CORE | | + + + + + + | NRBC# | 0.04 (H) | 0.00 - 0.02 | [facility] | | | | | K/cu mm | LABORATORY | | | | | | SERVICES, | | | | | | CORE | | + + + + + + | NEUTROPHIL | 74.4 (H) | 50.0 - 70.0 % | [facility] | | | % | | | LABORATORY | | | | | | SERVICES, | | | | | | CORE | | + + + + + + | LYMPHOCYTE | 14.4 (L) | 18.0 - 42.0 % | [facility] | | | % | | | LABORATORY | | | | | | SERVICES, | | | | | | CORE | | + + + + + + | MONOCYTE % | 7.5 | 3.5 - 9.0 % | [facility] | | | | | | LABORATORY | | | | | | SERVICES, | | | | | | CORE | | + + + + + + | EOS % | 1.1 | 1.0 - 3.0 % | [facility] | | | | | | LABORATORY | | | | | | SERVICES, | | | | | | CORE | | + + + + + + | BASO % | 0.2 | 0.0 - 2.0 % | [facility] | | | | | | LABORATORY | | | | | | SERVICES, | | | | | | CORE | | + + + + + + | IG% | 2.4 (H)Comment: Immature | 0.0 - 0.6 % | [facility] | | | | Granulocytes (IG) | | LABORATORY | | | | include metamyelocytes, | | SERVICES, | | | | myelocytes and | | CORE | | | | promyelocytes. Bands | | | | | | are not included in the | | | | | | IG count. Bands are | | | | | | included in the | | | | | | neutrophil count. | | | | + + + + + + | NEUTROPHIL | 10.57 (H) | 1.80 - 7.70 | [facility] | | | # | | K/cu mm | LABORATORY | | | | | | SERVICES, | | | | | | CORE | | + + + + + + | LYMPHOCYTE | 2.05 | 1.00 - 4.80 | [facility] | | | # | | K/cu mm | LABORATORY | | | | | | SERVICES, | | | | | | CORE | | + + + + + + | MONOCYTE # | 1.06 (H) | 0.10 - 0.90 | [facility] | | | | | K/cu mm | LABORATORY | | | | | | SERVICES, | | | | | | CORE | | + + + + + + | EOS # | 0.15 | 0.00 - 0.50 | [facility] | | | | | K/cu mm | LABORATORY | | | | | | SERVICES, | | | | | | CORE | | + + + + + + | BASO # | 0.03 | 0.00 - 0.10 | [facility] | | | | | K/cu mm | LABORATORY | | | | | | SERVICES, | | | | | | CORE | | + + + + + + | IG# | 0.34 (H) | 0.00 - 0.03 | [facility] | | | | | K/cu mm | LABORATORY | | | | | | SERVICES, | | | | | | CORE | | + + + + + + + + | Specimen | + + | Blood | + + + + + | Narrative | Performed At | + + + | Immature Granulocytes (IG) include metamyelocytes, myelocytes | [facility] | | and promyelocytes. Bands are not included in the IG count. Bands | LABORATORY | | are included in the neutrophil count. | SERVICES, CORE | + + + + + + + + | Performing | Address | City/State/Zipcode | Phone Number | | Organization | | | | + + + + + | [facility] | [address] | [place] [address] | | | SERVICES, CORE | [address] | | | + + + + + HEPARIN, EITHER STANDARD / LMW, BLOOD (03/27/2017 3:51 AM PDT) + +-------+ + + + | Component | Value | Ref Range | Performed | Pathologist | | | | | At | Signature | + +-------+ + + + | HEPARIN, | 0.68 | U/mL | [facility] | | | STD LMW | | | LABORATORY | | | | | | SERVICES, | | | | | | CORE | | + +-------+ + + + + + | Specimen | + + | Blood | + + + + + | Narrative | Performed At | + + + | LVAD/Advanced Heart Failure Heparin Protocol Heparin level 6 | [facility] | | hrs after every heparin rate change; If heparin level within target | LABORATORY | | range for 2 consecutive results, recheck every AM. Heparin, Either | SERVICES, CORE | | STD/LMW - Therapeutic Ranges: Heparin, Unfractionated: 0.35 - | | | 0.70 U/mL Enoxaparin, LMWH: 0.70 - 1.20 U/mL | | | Dalteparin, LMWH: 0.70 - 1.20 U/mL Tinzaparin, | | | LMWH: Therapeutic range not established. | | | Preliminary | | | studies suggest range | | | similar to | | | dalteparin. Clinical | | | correlation | | | required. Heparin levels may be unreliable for: | | | Total bilirubin | | | >28.8 mg/dL | | | Triglycerides | | | >690 mg/dL or | | | Moderate to Gross Hemolysis | | + + + + + + + + | Performing | Address | City/State/Zipcode | Phone Number | | Organization | | | | + + + + + | [facility] | [address] | [place] [address] | | | SERVICES, CORE | [address] | | | + + + + + BASIC METABOLIC SET (NA, K, CL, TCO2, BUN, CR, GLU, CA) (03/27/2017 3:51 AM PDT) + + + + + + | Component | Value | Ref Range | Performed | Pathologist | | | | | At | Signature | + + + + + + | GLUCOSE, | 117 (H) | 70 - 99 mg/dL | [facility] | | | PLASMA | | | LABORATORY | | | (LAB) | | | SERVICES, | | | | | | CORE | | + + + + + + | BUN, PLASMA | 47 (H) | 6 - 20 mg/dL | [facility] | | | (LAB) | | | LABORATORY | | | | | | SERVICES, | | | | | | CORE | | + + + + + + | CREATININE | 1.34 (H) | 0.70 - 1.30 | [facility] | | | PLASMA | | mg/dL | LABORATORY | | | (LAB) | | | SERVICES, | | | | | | CORE | | + + + + + + | EGFR | >60 | >60 mL/min | [facility] | | | - | | | LABORATORY | | | SLOVENIAN | | | SERVICES, | | | | | | CORE | | + + + + + + | EGFR NON | 54 (L) | >60 mL/min | [facility] | | | -SOREN | | | LABORATORY | | | RICAN | | | SERVICES, | | | | | | CORE | | + + + + + + | SODIUM, | 135 (L) | 136 - 145 | [facility] | | | PLASMA | | mmol/L | LABORATORY | | | (LAB) | | | SERVICES, | | | | | | CORE | | + + + + + + | POTASSIUM, | 4.6 | 3.4 - 5.0 | [facility] | | | PLASMA | | mmol/L | LABORATORY | | | (LAB) | | | SERVICES, | | | | | | CORE | | + + + + + + | CHLORIDE, | 102 | 97 - 108 mmol/L | [facility] | | | PLASMA | | | LABORATORY | | | (LAB) | | | SERVICES, | | | | | | CORE | | + + + + + + | TOTAL CO2, | 24 | 21 - 32 mmol/L | [facility] | | | PLASMA | | | LABORATORY | | | (LAB) | | | SERVICES, | | | | | | CORE | | + + + + + + | CALCIUM, | 8.3 (L) | 8.6 - 10.2 | [facility] | | | PLASMA | | mg/dL | LABORATORY | | | (LAB) | | | SERVICES, | | | | | | CORE | | + + + + + + | ANION GAP | 9 | mmol/L | [facility] | | | | | | LABORATORY | | | | | | SERVICES, | | | | | | CORE | | + + + + + + | POTASSIUM | No Hemo | | [facility] | | | CMNT | | | LABORATORY | | | | | | SERVICES, | | | | | | CORE | | + + + + + + + + | Specimen | + + | Blood | + + + + + | Narrative | Performed At | + + + | Adult glucose reference range change effective 7-12-17. GFR is | [facility] | | estimated using the MDRD equation recommended by the National Kidney | LABORATORY | | Disease Education Program. Estimated GFR Interpretive Information: | SERVICES, CORE | | <60 mL/min/1.73 sq m Chronic Kidney | | | Disease <15 mL/min/1.73 sq m Kidney | | | Failure Estimated GFR greater that 60 mL/min/1.73 sq m is of limited | | | clinical value. The MDRD equation is not valid in the following | | | situations: - Patients under 18 years of age - Severe malnutrition | | | or obesity - Vegetarian diet - Rapidly changing kidney function | | + + + + + + + + | Performing | Address | City/State/Zipcode | Phone Number | | Organization | | | | + + + + + | [facility] | [address] | [place] [address] | | | SERVICES, CORE | [address] | | | + + + + + INR (03/27/2017 3:51 AM PDT) + + + + + + | Component | Value | Ref Range | Performed | Pathologist | | | | | At | Signature | + + + + + + | INR | 1.56 (H) | 0.90 - 1.20 INR | [facility] | | | | | | LABORATORY | | | | | | SERVICES, | | | | | | CORE | | + + + + + + + + | Specimen | + + | Blood | + + + + + | Narrative | Performed At | + + + | LVAD/Advanced Heart Failure Heparin Protocol Heparin level 6 | [facility] | | hrs after every heparin rate change; If heparin level within target | LABORATORY | | range for 2 consecutive results, recheck every AM. INR Therapeutic | SERVICES, CORE | | ranges for full anticoagulation: INR for Venous | | | Thromboembolism (2.0 - 3.0) INR INR for most | | | patients with mech. valves (2.5 - 3.5) INR | | + + + + + + + + | Performing | Address | City/State/Zipcode | Phone Number | | Organization | | | | + + + + + | [facility] | [address] | [place] [address] | | | SERVICES, CORE | [address] | | | + + + + + MAGNESIUM, PLASMA (03/27/2017 3:51 AM PDT) + +---------+ + + + | Component | Value | Ref Range | Performed | Pathologist | | | | | At | Signature | + +---------+ + + + | MAGNESIUM,P | 2.7 (H) | 1.8 - 2.5 mg/dL | [facility] | | | [facility] | | | LABORATORY | | | | | | ARASH, | | | | | | [facility] | | + +---------+ + + + + + | Specimen | + + | Blood | + + + + + + + | Performing | Address | City/State/Zipcode | Phone Number | | Organization | | | | + + + + + | [facility] | [address] | [place] [address] | | | [facility]TOINE | [address] | | | + + + + + CARDIOLOGY (03/27/2017 12:00 AM PDT) + + + | Narrative | Performed At | + + + | | | + + + CAPILLARY BLOOD GLUCOSE (NO CHG), POC (03/26/2017 10:01 PM PDT) + +---------+ + + + | Component | Value | Ref Range | Performed | Pathologist | | | | | At | Signature | + +---------+ + + + | BLOOD | 157 (H) | 70 - 99 mg/dL | [facility] | | | GLUCOSE, | | | [facility] | | | POC | | | [facility] | | | | | | OF CARE | | | | | | TESTS | | + +---------+ + + + + + | Specimen | + + | | + + + + + + + | Performing | Address | City/State/Zipcode | Phone Number | | Organization | | | | + + + + + | [facility] | [address] | [place], [place] | | | [facility] | [address] | [phone] | | | TESTS | | | | + + + + + CAPILLARY BLOOD GLUCOSE (NO CHG), POC (03/26/2017 5:30 PM PDT) + +-------+ + + + | Component | Value | Ref Range | Performed | Pathologist | | | | | At | Signature | + +-------+ + + + | BLOOD | 94 | 70 - 99 mg/dL | [facility] - | | | GLUCOSE, | | | [facility] | | | POC | | | [facility] | | | | | | OF CARE | | | | | | TESTS | | + +-------+ + + + + + | Specimen | + + | | + + + + + + + | Performing | Address | City/State/Zipcode | Phone Number | | Organization | | | | + + + + + | [facility] | [address] | [place], [place] | | | [facility] | [address] | [phone] | | | TESTS | | | | + + + + + BASIC METABOLIC SET (NA, K, CL, TCO2, BUN, CR, GLU, CA) (03/26/2017 4:03 PM PDT) + + + + + + | Component | Value | Ref Range | Performed | Pathologist | | | | | At | Signature | + + + + + + | GLUCOSE, | 111 (H) | 70 - 99 mg/dL | [facility] | | | PLASMA | | | LABORATORY | | | (LAB) | | | SERVICES, | | | | | | CORE | | + + + + + + | BUN, PLASMA | 43 (H) | 6 - 20 mg/dL | [facility] | | | (LAB) | | | LABORATORY | | | | | | SERVICES, | | | | | | CORE | | + + + + + + | CREATININE | 1.31 (H) | 0.70 - 1.30 | [facility] | | | PLASMA | | mg/dL | LABORATORY | | | (LAB) | | | SERVICES, | | | | | | CORE | | + + + + + + | EGFR | >60 | >60 mL/min | [facility] | | | - | | | LABORATORY | | | SLOVENIAN | | | SERVICES, | | | | | | CORE | | + + + + + + | EGFR NON | 55 (L) | >60 mL/min | [facility] | | | -SOREN | | | LABORATORY | | | RICAN | | | SERVICES, | | | | | | CORE | | + + + + + + | SODIUM, | 136 | 136 - 145 | [facility] | | | PLASMA | | mmol/L | LABORATORY | | | (LAB) | | | SERVICES, | | | | | | CORE | | + + + + + + | POTASSIUM, | 4.9 | 3.4 - 5.0 | [facility] | | | PLASMA | | mmol/L | LABORATORY | | | (LAB) | | | SERVICES, | | | | | | CORE | | + + + + + + | CHLORIDE, | 103 | 97 - 108 mmol/L | [facility] | | | PLASMA | | | LABORATORY | | | (LAB) | | | SERVICES, | | | | | | CORE | | + + + + + + | TOTAL CO2, | 23 | 21 - 32 mmol/L | [facility] | | | PLASMA | | | LABORATORY | | | (LAB) | | | SERVICES, | | | | | | CORE | | + + + + + + | CALCIUM, | 8.6 | 8.6 - 10.2 | [facility] | | | PLASMA | | mg/dL | LABORATORY | | | (LAB) | | | SERVICES, | | | | | | CORE | | + + + + + + | ANION GAP | 10 | mmol/L | [facility] | | | | | | LABORATORY | | | | | | SERVICES, | | | | | | CORE | | + + + + + + | POTASSIUM | Sl Hemo | | [facility] | | | CMNT | | | LABORATORY | | | | | | SERVICES, | | | | | | CORE | | + + + + + + + + | Specimen | + + | Blood | + + + + + | Narrative | Performed At | + + + | Adult glucose reference range change effective 7-12-17. Sample | [facility] | | hemolyzed. Results for K, Total Bili, Direct Bili, AST, LDH, or HDL | LABORATORY | | may be inaccurate. Refer to comment under test result. GFR is | SERVICES, CORE | | estimated using the MDRD equation recommended by the National Kidney | | | Disease Education Program. Estimated GFR Interpretive Information: | | | <60 mL/min/1.73 sq m Chronic Kidney | | | Disease <15 mL/min/1.73 sq m Kidney | | | Failure Estimated GFR greater that 60 mL/min/1.73 sq m is of limited | | | clinical value. The MDRD equation is not valid in the following | | | situations: - Patients under 18 years of age - Severe malnutrition | | | or obesity - Vegetarian diet - Rapidly changing kidney function | | + + + + + + + + | Performing | Address | City/State/Zipcode | Phone Number | | Organization | | | | + + + + + | [facility] | [address] | [place] [address] | | | SERVICES, ИРИНА | [address] | | | + + + + + CAPILLARY BLOOD GLUCOSE (NO CHG), POC (03/26/2017 8:51 AM PDT) + +---------+ + + + | Component | Value | Ref Range | Performed | Pathologist | | | | | At | Signature | + +---------+ + + + | BLOOD | 116 (H) | 70 - 99 mg/dL | [facility] - | | | GLUCOSE, | | | [facility] | | | POC | | | [place] | | | | | | OF CARE | | | | | | TESTS | | + +---------+ + + + + + | Specimen | + + | | + + + + + + + | Performing | Address | City/State/Zipcode | Phone Number | | Organization | | | | + + + + + | [facility] | [address] | [place], [place] | | | JUL[facility] S[facility] | [address] | [address] | | | TESTS | | | | + + + + + RAINBOW HOLD TUBE - GREEN TOP (03/26/2017 3:50 AM PDT) + + | Specimen | + + | Blood | + + + + + + + | Performing | Address | City/State/Zipcode | Phone Number | | Organization | | | | + + + + + | [facility] | [address] | [place] [address] | | | ARASH, ИРИНА | [address] | | | + + + + + CBC AND AUTO DIFF (03/26/2017 3:37 AM PDT) + + + + + + | Component | Value | Ref Range | Performed | Pathologist | | | | | At | Signature | + + + + + + | WHITE CELL | 15.15 (H) | 3.50 - 10.80 | [facility] | | | COUNT | | K/cu mm | LABORATORY | | | | | | SERVICES, | | | | | | CORE | | + + + + + + | RED CELL | 2.71 (L) | 4.50 - 6.00 | [facility] | | | COUNT | | M/cu mm | LABORATORY | | | | | | SERVICES, | | | | | | CORE | | + + + + + + | HEMOGLOBIN | 8.3 (L) | 13.5 - 17.5 | [facility] | | | | | g/dL | LABORATORY | | | | | | SERVICES, | | | | | | CORE | | + + + + + + | HEMATOCRIT | 25.2 (L) | 41.0 - 53.0 % | [facility] | | | | | | LABORATORY | | | | | | SERVICES, | | | | | | CORE | | + + + + + + | MCV | 93.0 | 80.0 - 96.0 fL | [facility] | | | | | | LABORATORY | | | | | | SERVICES, | | | | | | CORE | | + + + + + + | MCHC | 32.9 | 33.0 - 35.5 | [facility] | | | | | g/dL | LABORATORY | | | | | | SERVICES, | | | | | | CORE | | + + + + + + | RDW SD | 50.1 (H) | 35.1 - 46.3 fL | [facility] | | | | | | LABORATORY | | | | | | SERVICES, | | | | | | CORE | | + + + + + + | PLATELET | 349 | 150 - 400 K/cu | [facility] | | | COUNT | | mm | LABORATORY | | | | | | SERVICES, | | | | | | CORE | | + + + + + + | MPV | 11.1 | 9.7 - 12.3 fL | [facility] | | | | | | LABORATORY | | | | | | SERVICES, | | | | | | CORE | | + + + + + + | NRBC% | 0.4 (H) | 0.0 - 0.3 % | [facility] | | | | | | LABORATORY | | | | | | SERVICES, | | | | | | CORE | | + + + + + + | NRBC# | 0.06 (H) | 0.00 - 0.02 | [facility] | | | | | K/cu mm | LABORATORY | | | | | | SERVICES, | | | | | | CORE | | + + + + + + | NEUTROPHIL | 78.1 (H) | 50.0 - 70.0 % | [facility] | | | % | | | LABORATORY | | | | | | SERVICES, | | | | | | CORE | | + + + + + + | LYMPHOCYTE | 12.6 (L) | 18.0 - 42.0 % | [facility] | | | % | | | LABORATORY | | | | | | SERVICES, | | | | | | CORE | | + + + + + + | MONOCYTE % | 5.6 | 3.5 - 9.0 % | [facility] | | | | | | LABORATORY | | | | | | SERVICES, | | | | | | CORE | | + + + + + + | EOS % | 0.7 (L) | 1.0 - 3.0 % | [facility] | | | | | | LABORATORY | | | | | | SERVICES, | | | | | | CORE | | + + + + + + | BASO % | 0.2 | 0.0 - 2.0 % | [facility] | | | | | | LABORATORY | | | | | | SERVICES, | | | | | | CORE | | + + + + + + | IG% | 2.8 (H)Comment: Immature | 0.0 - 0.6 % | [facility] | | | | Granulocytes (IG) | | LABORATORY | | | | include metamyelocytes, | | SERVICES, | | | | myelocytes and | | CORE | | | | promyelocytes. Bands | | | | | | are not included in the | | | | | | IG count. Bands are | | | | | | included in the | | | | | | neutrophil count. | | | | + + + + + + | NEUTROPHIL | 11.82 (H) | 1.80 - 7.70 | [facility] | | | # | | K/cu mm | LABORATORY | | | | | | SERVICES, | | | | | | CORE | | + + + + + + | LYMPHOCYTE | 1.91 | 1.00 - 4.80 | [facility] | | | # | | K/cu mm | LABORATORY | | | | | | SERVICES, | | | | | | CORE | | + + + + + + | MONOCYTE # | 0.85 | 0.10 - 0.90 | [facility] | | | | | K/cu mm | LABORATORY | | | | | | SERVICES, | | | | | | CORE | | + + + + + + | EOS # | 0.11 | 0.00 - 0.50 | [facility] | | | | | K/cu mm | LABORATORY | | | | | | SERVICES, | | | | | | CORE | | + + + + + + | BASO # | 0.03 | 0.00 - 0.10 | [facility] | | | | | K/cu mm | LABORATORY | | | | | | SERVICES, | | | | | | CORE | | + + + + + + | IG# | 0.43 (H) | 0.00 - 0.03 | [facility] | | | | | K/cu mm | LABORATORY | | | | | | SERVICES, | | | | | | CORE | | + + + + + + + + | Specimen | + + | Blood | + + + + + | Narrative | Performed At | + + + | Immature Granulocytes (IG) include metamyelocytes, myelocytes | [facility] | | and promyelocytes. Bands are not included in the IG count. Bands | LABORATORY | | are included in the neutrophil count. | [facility] ANTOINE | + + + + + + + + | Performing | Address | City/State/Zipcode | Phone Number | | Organization | | | | + + + + + | [facility] | [address] | [place] [address] | | | ИРИНА ANTOINE | [address] | | | + + + + + HEPARIN, EITHER STANDARD / LMW, BLOOD (03/26/2017 3:37 AM PDT) + +-------+ + + + | Component | Value | Ref Range | Performed | Pathologist | | | | | At | Signature | + +-------+ + + + | HEPARIN, | 0.59 | U/mL | [facility] | | | STD LMW | | | LABORATORY | | | | | | SERVICES, | | | | | | CORE | | + +-------+ + + + + + | Specimen | + + | Blood | + + + + + | Narrative | Performed At | + + + | LVAD/Advanced Heart Failure Heparin Protocol Heparin level 6 | [facility] | | hrs after every heparin rate change; If heparin level within target | LABORATORY | | range for 2 consecutive results, recheck every AM. Heparin, Either | SERVICES, CORE | | STD/LMW - Therapeutic Ranges: Heparin, Unfractionated: 0.35 - | | | 0.70 U/mL Enoxaparin, LMWH: 0.70 - 1.20 U/mL | | | Dalteparin, LMWH: 0.70 - 1.20 U/mL Tinzaparin, | | | LMWH: Therapeutic range not established. | | | Preliminary | | | studies suggest range | | | similar to | | | dalteparin. Clinical | | | correlation | | | required. Heparin levels may be unreliable for: | | | Total bilirubin | | | >28.8 mg/dL | | | Triglycerides | | | >690 mg/dL or | | | Moderate to Gross Hemolysis | | + + + + + + + + | Performing | Address | City/State/Zipcode | Phone Number | | Organization | | | | + + + + + | [facility] | [address] | [place] [address] | | | SERVICES, CORE | [address] | | | + + + + + BASIC METABOLIC SET (NA, K, CL, TCO2, BUN, CR, GLU, CA) (03/26/2017 3:37 AM PDT) + + + + + + | Component | Value | Ref Range | Performed | Pathologist | | | | | At | Signature | + + + + + + | GLUCOSE, | 114 (H) | 70 - 99 mg/dL | [facility] | | | PLASMA | | | LABORATORY | | | (LAB) | | | SERVICES, | | | | | | CORE | | + + + + + + | BUN, PLASMA | 45 (H) | 6 - 20 mg/dL | [facility] | | | (LAB) | | | LABORATORY | | | | | | SERVICES, | | | | | | CORE | | + + + + + + | CREATININE | 1.31 (H) | 0.70 - 1.30 | [facility] | | | PLASMA | | mg/dL | LABORATORY | | | (LAB) | | | SERVICES, | | | | | | CORE | | + + + + + + | EGFR | >60 | >60 mL/min | [facility] | | | - | | | LABORATORY | | | SLOVENIAN | | | SERVICES, | | | | | | CORE | | + + + + + + | EGFR NON | 55 (L) | >60 mL/min | [facility] | | | -SOREN | | | LABORATORY | | | RICAN | | | SERVICES, | | | | | | CORE | | + + + + + + | SODIUM, | 135 (L) | 136 - 145 | [facility] | | | PLASMA | | mmol/L | LABORATORY | | | (LAB) | | | SERVICES, | | | | | | CORE | | + + + + + + | POTASSIUM, | 4.2 | 3.4 - 5.0 | [facility] | | | PLASMA | | mmol/L | LABORATORY | | | (LAB) | | | SERVICES, | | | | | | CORE | | + + + + + + | CHLORIDE, | 104 | 97 - 108 mmol/L | [facility] | | | PLASMA | | | LABORATORY | | | (LAB) | | | SERVICES, | | | | | | CORE | | + + + + + + | TOTAL CO2, | 22 | 21 - 32 mmol/L | [facility] | | | PLASMA | | | LABORATORY | | | (LAB) | | | SERVICES, | | | | | | CORE | | + + + + + + | CALCIUM, | 8.5 (L) | 8.6 - 10.2 | [facility] | | | PLASMA | | mg/dL | LABORATORY | | | (LAB) | | | SERVICES, | | | | | | CORE | | + + + + + + | ANION GAP | 9 | mmol/L | [facility] | | | | | | LABORATORY | | | | | | SERVICES, | | | | | | CORE | | + + + + + + | POTASSIUM | No Hemo | | [facility] | | | CMNT | | | LABORATORY | | | | | | SERVICES, | | | | | | CORE | | + + + + + + + + | Specimen | + + | Blood | + + + + + | Narrative | Performed At | + + + | Adult glucose reference range change effective 7-17. GFR is | [facility] | | estimated using the MDRD equation recommended by the National Kidney | LABORATORY | | Disease Education Program. Estimated GFR Interpretive Information: | SERVICES, CORE | | <60 mL/min/1.73 sq m Chronic Kidney | | | Disease <15 mL/min/1.73 sq m Kidney | | | Failure Estimated GFR greater that 60 mL/min/1.73 sq m is of limited | | | clinical value. The MDRD equation is not valid in the following | | | situations: - Patients under 18 years of age - Severe malnutrition | | | or obesity - Vegetarian diet - Rapidly changing kidney function | | + + + + + + + + | Performing | Address | City/State/Zipcode | Phone Number | | Organization | | | | + + + + + | [facility] | [address] | [place] [address] | | | SERVICES, CORE | [address] | | | + + + + + INR (03/26/2017 3:37 AM PDT) + + + + + + | Component | Value | Ref Range | Performed | Pathologist | | | | | At | Signature | + + + + + + | INR | 1.41 (H) | 0.90 - 1.20 INR | [facility] | | | | | | LABORATORY | | | | | | SERVICES, | | | | | | CORE | | + + + + + + + + | Specimen | + + | Blood | + + + + + | Narrative | Performed At | + + + | LVAD/Advanced Heart Failure Heparin Protocol Heparin level 6 | [facility] | | hrs after every heparin rate change; If heparin level within target | LABORATORY | | range for 2 consecutive results, recheck every AM. INR Therapeutic | SERVICES, CORE | | ranges for full anticoagulation: INR for Venous | | | Thromboembolism (2.0 - 3.0) INR INR for most | | | patients with mech. valves (2.5 - 3.5) INR | | + + + + + + + + | Performing | Address | City/State/Zipcode | Phone Number | | Organization | | | | + + + + + | [facility] | [address] | [place] [address] | | | ИР[facility]НА ANTOINE | [address] | | | + + + + + MAGNESIUM, PLASMA (03/26/2017 3:37 AM PDT) + +---------+ + + + | Component | Value | Ref Range | Performed | Pathologist | | | | | At | Signature | + +---------+ + + + | MAGNESIUM,P | 2.8 (H) | 1.8 - 2.5 mg/dL | [facility] | | | LASMA | | | LABORATORY | | | | | | SERVICES, | | | | | | CORE | | + +---------+ + + + + + | Specimen | + + | Blood | + + + + + + + | Performing | Address | City/State/Zipcode | Phone Number | | Organization | | | | + + + + + | [facility] | [address] | [place] [address] | | | SERVICES, CORE | [address] | | | + + + + + HEMOGLOBIN A1C, BLOOD (03/26/2017 3:37 AM PDT) + + + + + + | Component | Value | Ref Range | Performed | Pathologist | | | | | At | Signature | + + + + + + | HEMOGLOBIN | 5.6Comment: Hgb A1C | <5.7 % | [facility] | | | A1C | Interpretive | | LABORATORY | | | | Information: | | SERVICES, | | | | <5.7% - | | SPECIAL IMM | | | | Normal 5.7-6.4% - | | + COAG | | | | Consistent with | | | | | | pre-diabetes | | | | | | >6.4% - Consistent with | | | | | | diabetes | | | | + + + + + + + + | Specimen | + + | Blood | + + + + + | Narrative | Performed At | + + + | Alternate forms of testing such as fructosamine should be | [facility] | | considered for monitoring penitentiary glycemic control in patients with: | LABORATORY | | Increased red cell turnover, certain hemoglobinopathies (e.g., HbS, | SERVICES, | | HbE, HbC and thalassemia syndromes), anemias, blood loss, chronic | SPECIAL IMM + | | liver disease and hemochromatosis (artefactually low HbA1c); iron | COAG | | deficiency anemia (artefactually high HbA1c due to enhanced glycation | | | of hemoglobin). | | + + + + + + + + | Performing | Address | City/State/Zipcode | Phone Number | | Organization | | | | + + + + + | [facility] | [address] | [place] [address] | | | SERVICES, SPECIAL | [address] | | | | IMM + COAG | | | | + + + + + LIVER SET (AST,ALT,BILI TOTAL,BILI DIRECT,ALK PHOS,ALB,PROT TOTAL) (03/26/2017 3:37 AM PDT ) + +---------+ + + + | Component | Value | Ref Range | Performed | Pathologist | | | | | At | Signature | + +---------+ + + + | ALBUMIN, | 2.2 (L) | 3.5 - 4.7 g/dL | [facility] | | | PLASMA | | | LABORATORY | | | (LAB) | | | SERVICES, | | | | | | CORE | | + +---------+ + + + | BILIRUBIN | 0.7 | 0.3 - 1.2 mg/dL | [facility] | | | TOTAL | | | LABORATORY | | | | | | SERVICES, | | | | | | CORE | | + +---------+ + + + | BILIRUBIN | 0.1 | 0.0 - 0.3 mg/dL | [facility] | | | DIRECT | | | LABORATORY | | | | | | SERVICES, | | | | | | CORE | | + +---------+ + + + | ALK PHOS | 101 | 56 - 119 U/L | [facility] | | | | | | LABORATORY | | | | | | SERVICES, | | | | | | CORE | | + +---------+ + + + | AST(SGOT) | 66 (H) | <=41 U/L | [facility] | | | | | | LABORATORY | | | | | | SERVICES, | | | | | | CORE | | + +---------+ + + + | ALT (SGPT) | 103 (H) | <=60 U/L | [facility] | | | | | | LABORATORY | | | | | | SERVICES, | | | | | | CORE | | + +---------+ + + + | TOTAL | 7.1 | 6.4 - 8.2 g/dL | [facility] | | | PROTEIN, | | | LABORATORY | | | PLASMA | | | SERVICES, | | | (LAB) | | | CORE | | + +---------+ + + + | AST CMNT | No Hemo | | [facility] | | | | | | LABORATORY | | | | | | SERVICES, | | | | | | CORE | | + +---------+ + + + | BILI T CMNT | No Hemo | | [facility] | | | | | | LABORATORY | | | | | | SERVICES, | | | | | | CORE | | + +---------+ + + + | NATE NORTON | No Hemo | | [facility] | | | | | | LABORATORY | | | | | | SERVICES, | | | | | | CORE | | + +---------+ + + + + + | Specimen | + + | Blood | + + + + + + + | Performing | Address | City/State/Zipcode | Phone Number | | Organization | | | | + + + + + | [facility] | [address] | [place] [address] | | | SERVICES, CORE | [address] | | | + + + + + CARDIOLOGY (03/26/2017 12:00 AM PDT) + + + | Narrative | Performed At | + + + | | | + + + CARDIOLOGY (03/26/2017 12:00 AM PDT) + + + | Narrative | Performed At | + + + | | | + + + CAPILLARY BLOOD GLUCOSE (NO CHG), POC (03/25/2017 11:39 PM PDT) + +---------+ + + + | Component | Value | Ref Range | Performed | Pathologist | | | | | At | Signature | + +---------+ + + + | BLOOD | 130 (H) | 70 - 99 mg/dL | [facility] - | | | GLUCOSE, | | | [facility] | | | POC | | | [facility] | | | | | | OF CARE | | | | | | TESTS | | + +---------+ + + + + + | Specimen | + + | | + + + + + + + | Performing | Address | City/State/Zipcode | Phone Number | | Organization | | | | + + + + + | [facility] | [address] | [place], [place] | | | [facility] | [address] | [address] | | | TESTS | | | | + + + + + CAPILLARY BLOOD GLUCOSE (NO CHG), POC (03/25/2017 8:08 PM PDT) + +---------+ + + + | Component | Value | Ref Range | Performed | Pathologist | | | | | At | Signature | + +---------+ + + + | BLOOD | 125 (H) | 70 - 99 mg/dL | [facility] - | | | GLUCOSE, | | | [facility] | | | POC | | | [facility] | | | | | | OF CARE | | | | | | TESTS | | + +---------+ + + + + + | Specimen | + + | | + + + + + + + | Performing | Address | City/State/Zipcode | Phone Number | | Organization | | | | + + + + + | [facility] | [address] | [place], [place] | | | [facility] | [address] | [address] | | | TESTS | | | | + + + + + URINE, MICROSCOPIC EXAM (03/25/2017 6:23 PM PDT) + +---------+ + + + | Component | Value | Ref Range | Performed | Pathologist | | | | | At | Signature | + +---------+ + + + | RED CELLS | 2 | 0 - 3 /hpf | [facility] | | | | | | LABORATORY | | | | | | SERVICES, | | | | | | CORE | | + +---------+ + + + | WHITE CELLS | 8 (H) | 0 - 5 /hpf | [facility] | | | | | | LABORATORY | | | | | | SERVICES, | | | | | | CORE | | + +---------+ + + + | BACTERIA | None | None /hpf | [facility] | | | | | | LABORATORY | | | | | | SERVICES, | | | | | | CORE | | + +---------+ + + + | YEAST (LAB) | None | None /hpf | [facility] | | | | | | LABORATORY | | | | | | SERVICES, | | | | | | CORE | | + +---------+ + + + | SQUAMOUS | Few (A) | None /hpf | [facility] | | | EPITHELIAL | | | LABORATORY | | | | | | SERVICES, | | | | | | CORE | | + +---------+ + + + | MUCOUS | None | None /hpf | [facility] | | | | | | LABORATORY | | | | | | SERVICES, | | | | | | CORE | | + +---------+ + + + | TRICHOMONAS | None | None /hpf | [facility] | | | | | | LABORATORY | | | | | | SERVICES, | | | | | | CORE | | + +---------+ + + + | NON-SQUAMOU | None | None /hpf | [facility] | | | S EPITH | | | LABORATORY | | | | | | SERVICES, | | | | | | CORE | | + +---------+ + + + | HYALINE | 1 | 0 - 2 /lpf | [facility] | | | CASTS | | | LABORATORY | | | | | | SERVICES, | | | | | | CORE | | + +---------+ + + + | GRANULAR | 0 | 0 - 2 /lpf | [facility] | | | CASTS | | | LABORATORY | | | | | | SERVICES, | | | | | | CORE | | + +---------+ + + + | CELLULAR | 0 | <=0 /lpf | [facility] | | | CASTS | | | LABORATORY | | | | | | SERVICES, | | | | | | CORE | | + +---------+ + + + | TRIPLE P04 | None | None /hpf | [facility] | | | CRYSTALS | | | LABORATORY | | | | | | SERVICES, | | | | | | CORE | | + +---------+ + + + | CALCIUM | None | None /hpf | [facility] | | | OXALATE | | | LABORATORY | | | ANAHY | | | SERVICES, | | | | | | CORE | | + +---------+ + + + | URIC ACID | None | None /hpf | [facility] | | | CRYSTALS | | | LABORATORY | | | | | | SERVICES, | | | | | | CORE | | + +---------+ + + + | AMORPHOUS | None | None /hpf | [facility] | | | CRYSTALS | | | LABORATORY | | | | | | SERVICES, | | | | | | CORE | | + +---------+ + + + + + | Specimen | + + | Urine | + + + + + + + | Performing | Address | City/State/Zipcode | Phone Number | | Organization | | | | + + + + + | [facility] | [address] | [place] [address] | | | ARASH, ИРИНА | [address] | | | + + + + + TRISTAN SMALLS (03/25/2017 6:23 PM PDT) + + + + + + | Component | Value | Ref Range | Performed | Pathologist | | | | | At | Signature | + + + + + + | COLOR(UR) | Yellow | | [facility] | | | | | | LABORATORY | | | | | | SERVICES, | | | | | | CORE | | + + + + + + | APPEARANCE | Clear | | [facility] | | | | | | LABORATORY | | | | | | SERVICES, | | | | | | CORE | | + + + + + + | GLUCOSE(UR) | Negative | Negative, 50.0 | [facility] | | | | | mg/dL | LABORATORY | | | | | | SERVICES, | | | | | | CORE | | + + + + + + | PROTEIN(LAB | Negative | Negative, 30.0 | [facility] | | | ) | | mg/dL | LABORATORY | | | | | | SERVICES, | | | | | | CORE | | + + + + + + | BILIRUBIN | Negative | Negative | [facility] | | | | | | LABORATORY | | | | | | SERVICES, | | | | | | CORE | | + + + + + + | UROBILINOGE | <2.0 | <2.0 mg/dL | [facility] | | | N | | | LABORATORY | | | | | | SERVICES, | | | | | | CORE | | + + + + + + | PH(UR) | 7.0 | 5.0 - 8.0 | [facility] | | | | | | LABORATORY | | | | | | SERVICES, | | | | | | CORE | | + + + + + + | BLOOD | Small (A) | Negative | [facility] | | | | | | LABORATORY | | | | | | SERVICES, | | | | | | CORE | | + + + + + + | KETONES | Negative | Negative mg/dL | [facility] | | | | | | LABORATORY | | | | | | SERVICES, | | | | | | CORE | | + + + + + + | NITRITES | Negative | Negative | [facility] | | | | | | LABORATORY | | | | | | SERVICES, | | | | | | CORE | | + + + + + + | LEUKOCYTE | Moderate (A) | Negative | [facility] | | | ESTERASE | | | LABORATORY | | | | | | SERVICES, | | | | | | CORE | | + + + + + + | SPECIFIC | 1.012Comment: Specific | 1.005 - 1.030 | [facility] | | | GRAVITY | [place] performed by | | LABORATORY | | | | refractometry | | SERVICES, | | | | | | CORE | | + + + + + + + + | Specimen | + + | Urine | + + + + + + + | Performing | Address | City/State/Zipcode | Phone Number | | Organization | | | | + + + + + | [facility] | [address] | [place] [address] | | | ARASH, CORE | [address] | | | + + + + + PREALBUMIN (03/25/2017 6:22 PM PDT) + +-------+ + + + | Component | Value | Ref Range | Performed | Pathologist | | | | | At | Signature | + +-------+ + + + | PREALBUMIN | 18.1 | 17.0 - 42.0 | [facility] | | | | | mg/dL | [facility] | | | | | | [place] | | + +-------+ + + + + + | Specimen | + + | Blood | + + + + + + + | Performing | Address | City/State/Zipcode | Phone Number | | Organization | | | | + + + + + | [facility] | [address] | [place] [address] | | | [place] | | | | + + + + + CAPILLARY BLOOD GLUCOSE (NO CHG), POC (03/25/2017 12:56 PM PDT) + +---------+ + + + | Component | Value | Ref Range | Performed | Pathologist | | | | | At | Signature | + +---------+ + + + | BLOOD | 126 (H) | 70 - 99 mg/dL | [facility] | | | GLUCOSE, | | | [facility] | | | POC | | | [facility] | | | | | | [facility] CARE | | | | | | TESTS | | + +---------+ + + + + + | Specimen | + + | | + + + + + + + | Performing | Address | City/State/Zipcode | Phone Number | | Organization | | | | + + + + + | [facility] | [address] | [place], [place] | | | [facility] | [address] | [address] | | | TESTS | | | | + + + + + CAPILLARY BLOOD GLUCOSE (NO CHG), POC (03/25/2017 8:14 AM PDT) + +---------+ + + + | Component | Value | Ref Range | Performed | Pathologist | | | | | At | Signature | + +---------+ + + + | BLOOD | 140 (H) | 70 - 99 mg/dL | [facility] - | | | GLUCOSE, | | | [facility] | | | POC | | | [facility] | | | | | | OF CARE | | | | | | TESTS | | + +---------+ + + + + + | Specimen | + + | | + + + + + + + | Performing | Address | City/State/Zipcode | Phone Number | | Organization | | | | + + + + + | [facility] | [address] | [place], [place] | | | [facility] | [facility] | [address] | | | TESTS | | | | + + + + + HEPARIN, EITHER STANDARD / LMW, BLOOD (03/25/2017 5:07 AM PDT) + +-------+ + + + | Component | Value | Ref Range | Performed | Pathologist | | | | | At | Signature | + +-------+ + + + | HEPARIN, | 0.36 | U/mL | [facility] | | | STD LMW | | | LABORATORY | | | | | | SERVICES, | | | | | | CORE | | + +-------+ + + + + + | Specimen | + + | Blood | + + + + + | Narrative | Performed At | + + + | LVAD/Advanced Heart Failure Heparin Protocol Heparin level 6 | [facility] | | hrs after every heparin rate change; If heparin level within target | LABORATORY | | range for 2 consecutive results, recheck every AM. Heparin, Either | SERVICES, CORE | | STD/LMW - Therapeutic Ranges: Heparin, Unfractionated: 0.35 - | | | 0.70 U/mL Enoxaparin, LMWH: 0.70 - 1.20 U/mL | | | Dalteparin, LMWH: 0.70 - 1.20 U/mL Tinzaparin, | | | LMWH: Therapeutic range not established. | | | Preliminary | | | studies suggest range | | | similar to | | | dalteparin. Clinical | | | correlation | | | required. Heparin levels may be unreliable for: | | | Total bilirubin | | | >28.8 mg/dL | | | Triglycerides | | | >690 mg/dL or | | | Moderate to Gross Hemolysis | | + + + + + + + + | Performing | Address | City/State/Zipcode | Phone Number | | Organization | | | | + + + + + | [facility] | [address] | [place] [address] | | | ARASH, ИРИНА | [address] | | | + + + + + CBC AND AUTO DIFF (03/25/2017 12:52 AM PDT) + + + + + + | Component | Value | Ref Range | Performed | Pathologist | | | | | At | Signature | + + + + + + | WHITE CELL | 17.00 (H) | 3.50 - 10.80 | [facility] | | | COUNT | | K/cu mm | LABORATORY | | | | | | SERVICES, | | | | | | CORE | | + + + + + + | RED CELL | 2.56 (L) | 4.50 - 6.00 | [facility] | | | COUNT | | M/cu mm | LABORATORY | | | | | | SERVICES, | | | | | | CORE | | + + + + + + | HEMOGLOBIN | 7.8 (L) | 13.5 - 17.5 | [facility] | | | | | g/dL | LABORATORY | | | | | | SERVICES, | | | | | | CORE | | + + + + + + | HEMATOCRIT | 24.0 (L) | 41.0 - 53.0 % | [facility] | | | | | | LABORATORY | | | | | | SERVICES, | | | | | | CORE | | + + + + + + | MCV | 93.8 | 80.0 - 96.0 fL | [facility] | | | | | | LABORATORY | | | | | | SERVICES, | | | | | | CORE | | + + + + + + | MCHC | 32.5 | 33.0 - 35.5 | [facility] | | | | | g/dL | LABORATORY | | | | | | SERVICES, | | | | | | CORE | | + + + + + + | RDW SD | 50.5 (H) | 35.1 - 46.3 fL | [facility] | | | | | | LABORATORY | | | | | | SERVICES, | | | | | | CORE | | + + + + + + | PLATELET | 299 | 150 - 400 K/cu | [facility] | | | COUNT | | mm | LABORATORY | | | | | | SERVICES, | | | | | | CORE | | + + + + + + | MPV | 10.9 | 9.7 - 12.3 fL | [facility] | | | | | | LABORATORY | | | | | | SERVICES, | | | | | | CORE | | + + + + + + | NRBC% | 0.5 (H) | 0.0 - 0.3 % | [facility] | | | | | | LABORATORY | | | | | | SERVICES, | | | | | | CORE | | + + + + + + | NRBC# | 0.08 (H) | 0.00 - 0.02 | [facility] | | | | | K/cu mm | LABORATORY | | | | | | SERVICES, | | | | | | CORE | | + + + + + + | NEUTROPHIL | 80.9 (H) | 50.0 - 70.0 % | [facility] | | | % | | | LABORATORY | | | | | | SERVICES, | | | | | | CORE | | + + + + + + | LYMPHOCYTE | 9.4 (L) | 18.0 - 42.0 % | [facility] | | | % | | | LABORATORY | | | | | | SERVICES, | | | | | | CORE | | + + + + + + | MONOCYTE % | 5.7 | 3.5 - 9.0 % | [facility] | | | | | | LABORATORY | | | | | | SERVICES, | | | | | | CORE | | + + + + + + | EOS % | 0.5 (L) | 1.0 - 3.0 % | [facility] | | | | | | LABORATORY | | | | | | SERVICES, | | | | | | CORE | | + + + + + + | BASO % | 0.2 | 0.0 - 2.0 % | [facility] | | | | | | LABORATORY | | | | | | SERVICES, | | | | | | CORE | | + + + + + + | IG% | 3.3 (H)Comment: Immature | 0.0 - 0.6 % | [facility] | | | | Granulocytes (IG) | | LABORATORY | | | | include metamyelocytes, | | SERVICES, | | | | myelocytes and | | CORE | | | | promyelocytes. Bands | | | | | | are not included in the | | | | | | IG count. Bands are | | | | | | included in the | | | | | | neutrophil count. | | | | + + + + + + | NEUTROPHIL | 13.77 (H) | 1.80 - 7.70 | [facility] | | | # | | K/cu mm | LABORATORY | | | | | | SERVICES, | | | | | | CORE | | + + + + + + | LYMPHOCYTE | 1.59 | 1.00 - 4.80 | [facility] | | | # | | K/cu mm | LABORATORY | | | | | | SERVICES, | | | | | | CORE | | + + + + + + | MONOCYTE # | 0.97 (H) | 0.10 - 0.90 | [facility] | | | | | K/cu mm | LABORATORY | | | | | | SERVICES, | | | | | | CORE | | + + + + + + | EOS # | 0.08 | 0.00 - 0.50 | [facility] | | | | | K/cu mm | LABORATORY | | | | | | SERVICES, | | | | | | CORE | | + + + + + + | BASO # | 0.03 | 0.00 - 0.10 | [facility] | | | | | K/cu mm | LABORATORY | | | | | | SERVICES, | | | | | | CORE | | + + + + + + | IG# | 0.56 (H) | 0.00 - 0.03 | [facility] | | | | | K/cu mm | LABORATORY | | | | | | SERVICES, | | | | | | CORE | | + + + + + + + + | Specimen | + + | Blood | + + + + + | Narrative | Performed At | + + + | Immature Granulocytes (IG) include metamyelocytes, myelocytes | [facility] | | and promyelocytes. Bands are not included in the IG count. Bands | LABORATORY | | are included in the neutrophil count. | SERVICES, CORE | + + + + + + + + | Performing | Address | City/State/Zipcode | Phone Number | | Organization | | | | + + + + + | [facility] | [address] | [place] [address] | | | SERVICES, CORE | [address] | | | + + + + + INR (03/25/2017 12:52 AM PDT) + + + + + + | Component | Value | Ref Range | Performed | Pathologist | | | | | At | Signature | + + + + + + | INR | 1.23 (H) | 0.90 - 1.20 INR | [facility] | | | | | | LABORATORY | | | | | | SERVICES, | | | | | | CORE | | + + + + + + + + | Specimen | + + | Blood | + + + + + | Narrative | Performed At | + + + | INR Therapeutic ranges for full anticoagulation: INR for | [facility] | | Venous Thromboembolism (2.0 - 3.0) INR INR | LABORATORY | | for most patients with mech. valves (2.5 - 3.5) INR | SERVICES, CORE | + + + + + + + + | Performing | Address | City/State/Zipcode | Phone Number | | Organization | | | | + + + + + | [facility] | [address] | [place] [address] | | | SERVICES, CORE | [address] | | | + + + + + MAGNESIUM, PLASMA (03/25/2017 12:52 AM PDT) + +---------+ + + + | Component | Value | Ref Range | Performed | Pathologist | | | | | At | Signature | + +---------+ + + + | MAGNESIUM,P | 3.3 (H) | 1.8 - 2.5 mg/dL | [facility] | | | LASMA | | | LABORATORY | | | | | | ARASH, | | | | | | CORE | | + +---------+ + + + + + | Specimen | + + | Blood | + + + + + + + | Performing | Address | City/State/Zipcode | Phone Number | | Organization | | | | + + + + + | [facility] | [address] | [place] [address] | | | SERVICES, CORE | [address] | | | + + + + + RENAL FUNCTION SET (NA,K,CL,CO2,BUN,CREAT,GLUC,CA,PHOS,ALB ) (03/25/2017 12:52 AM PDT) + + + + + + | Component | Value | Ref Range | Performed | Pathologist | | | | | At | Signature | + + + + + + | GLUCOSE, | 128 (H) | 70 - 99 mg/dL | [facility] | | | PLASMA | | | LABORATORY | | | (LAB) | | | SERVICES, | | | | | | CORE | | + + + + + + | BUN, PLASMA | 47 (H) | 6 - 20 mg/dL | [facility] | | | (LAB) | | | LABORATORY | | | | | | SERVICES, | | | | | | CORE | | + + + + + + | CREATININE | 1.48 (H) | 0.70 - 1.30 | [facility] | | | PLASMA | | mg/dL | LABORATORY | | | (LAB) | | | SERVICES, | | | | | | CORE | | + + + + + + | EGFR | 58 (L) | >60 mL/min | [facility] | | | - | | | LABORATORY | | | SLOVENIAN | | | SERVICES, | | | | | | CORE | | + + + + + + | EGFR NON | 48 (L) | >60 mL/min | [facility] | | | -SOREN | | | LABORATORY | | | RICAN | | | SERVICES, | | | | | | CORE | | + + + + + + | SODIUM, | 134 (L) | 136 - 145 | [facility] | | | PLASMA | | mmol/L | LABORATORY | | | (LAB) | | | SERVICES, | | | | | | CORE | | + + + + + + | POTASSIUM, | 4.3 | 3.4 - 5.0 | [facility] | | | PLASMA | | mmol/L | LABORATORY | | | (LAB) | | | SERVICES, | | | | | | CORE | | + + + + + + | CHLORIDE, | 100 | 97 - 108 mmol/L | [facility] | | | PLASMA | | | LABORATORY | | | (LAB) | | | SERVICES, | | | | | | CORE | | + + + + + + | TOTAL CO2, | 27 | 21 - 32 mmol/L | [facility] | | | PLASMA | | | LABORATORY | | | (LAB) | | | SERVICES, | | | | | | CORE | | + + + + + + | CALCIUM, | 8.3 (L) | 8.6 - 10.2 | [facility] | | | PLASMA | | mg/dL | LABORATORY | | | (LAB) | | | SERVICES, | | | | | | CORE | | + + + + + + | CALCIUM(ALB | 9.7 | 8.6 - 10.2 | [facility] | | | CORRECTED) | | mg/dL | LABORATORY | | | | | | SERVICES, | | | | | | CORE | | + + + + + + | ALBUMIN, | 2.2 (L) | 3.5 - 4.7 g/dL | [facility] | | | PLASMA | | | LABORATORY | | | (LAB) | | | SERVICES, | | | | | | CORE | | + + + + + + | PHOSPHORUS, | 4.8 (H) | 2.4 - 4.7 mg/dL | [facility] | | | PLASMA | | | LABORATORY | | | (LAB) | | | SERVICES, | | | | | | CORE | | + + + + + + | POTASSIUM | No Hemo | | [facility] | | | CMNT | | | LABORATORY | | | | | | SERVICES, | | | | | | CORE | | + + + + + + | ANION GAP | 7 | mmol/L | [facility] | | | | | | LABORATORY | | | | | | SERVICES, | | | | | | CORE | | + + + + + + | ANION | 11 | 4 - 11 mmol/L | [facility] | | | GAP(ALB | | | LABORATORY | | | CORRECTED) | | | SERVICES, | | | | | | CORE | | + + + + + + + + | Specimen | + + | Blood | + + + + + | Narrative | Performed At | + + + | Adult glucose reference range change effective 7-12-17. GFR is | [facility] | | estimated using the MDRD equation recommended by the National Kidney | LABORATORY | | Disease Education Program. Estimated GFR Interpretive Information: | SERVICES, CORE | | <60 mL/min/1.73 sq m Chronic Kidney | | | Disease <15 mL/min/1.73 sq m Kidney | | | Failure Estimated GFR greater that 60 mL/min/1.73 sq m is of limited | | | clinical value. The MDRD equation is not valid in the following | | | situations: - Patients under 18 years of age - Severe malnutrition | | | or obesity - Vegetarian diet - Rapidly changing kidney function | | + + + + + + + + | Performing | Address | City/State/Zipcode | Phone Number | | Organization | | | | + + + + + | [facility] | [address] | [place] [address] | | | ARASH, ИРИНА | [address] | | | + + + + + CARDIOLOGY (03/25/2017 12:00 AM PDT) + + + | Narrative | Performed At | + + + | | | + + + CARDIOLOGY (03/25/2017 12:00 AM PDT) + + + | Narrative | Performed At | + + + | | | + + + CARDIOLOGY (03/25/2017 12:00 AM PDT) + + + | Narrative | Performed At | + + + | | | + + + HEPARIN, EITHER STANDARD / LMW, BLOOD (03/24/2017 10:22 PM PDT) + +-------+ + + + | Component | Value | Ref Range | Performed | Pathologist | | | | | At | Signature | + +-------+ + + + | HEPARIN, | 0.42 | U/mL | [facility] | | | STD LMW | | | LABORATORY | | | | | | SERVICES, | | | | | | CORE | | + +-------+ + + + + + | Specimen | + + | Blood | + + + + + | Narrative | Performed At | + + + | LVAD/Advanced Heart Failure Heparin Protocol Heparin level 6 | [facility] | | hrs after every heparin rate change; If heparin level within target | LABORATORY | | range for 2 consecutive results, recheck every AM. Heparin, Either | SERVICES, CORE | | STD/LMW - Therapeutic Ranges: Heparin, Unfractionated: 0.35 - | | | 0.70 U/mL Enoxaparin, LMWH: 0.70 - 1.20 U/mL | | | Dalteparin, LMWH: 0.70 - 1.20 U/mL Tinzaparin, | | | LMWH: Therapeutic range not established. | | | Preliminary | | | studies suggest range | | | similar to | | | dalteparin. Clinical | | | correlation | | | required. Heparin levels may be unreliable for: | | | Total bilirubin | | | >28.8 mg/dL | | | Triglycerides | | | >690 mg/dL or | | | Moderate to Gross Hemolysis | | + + + + + + + + | Performing | Address | City/State/Zipcode | Phone Number | | Organization | | | | + + + + + | [facility] | [address] | [place] [address] | | | ИРИНА ANTOINE | [address] | | | + + + + + CAPILLARY BLOOD GLUCOSE (NO CHG), POC (03/24/2017 10:07 PM PDT) + +---------+ + + + | Component | Value | Ref Range | Performed | Pathologist | | | | | At | Signature | + +---------+ + + + | BLOOD | 142 (H) | 70 - 99 mg/dL | [facility] - | | | GLUCOSE, | | | [facility] | | | POC | | | [place] | | | | | | OF CARE | | | | | | TESTS | | + +---------+ + + + + + | Specimen | + + | | + + + + + + + | Performing | Address | City/State/Zipcode | Phone Number | | Organization | | | | + + + + + | [facility] | [address] | [place], [place] | | | JULIANN SILVA OF CARE | [facility] | [address] | | | TESTS | | | | + + + + + CAPILLARY BLOOD GLUCOSE (NO CHG), POC (03/24/2017 9:15 PM PDT) + +---------+ + + + | Component | Value | Ref Range | Performed | Pathologist | | | | | At | Signature | + +---------+ + + + | BLOOD | 135 (H) | 70 - 99 mg/dL | [facility] - | | | GLUCOSE, | | | [facility] | | | POC | | | JULIANN SILVA | | | | | | OF CARE | | | | | | TESTS | | + +---------+ + + + + + | Specimen | + + | | + + + + + + + | Performing | Address | City/State/Zipcode | Phone Number | | Organization | | | | + + + + + | [facility] | [address] | [place], [place] | | | [facility] | [address] | [address] | | | TESTS | | | | + + + + + CAPILLARY BLOOD GLUCOSE (NO CHG), POC (03/24/2017 5:57 PM PDT) + +---------+ + + + | Component | Value | Ref Range | Performed | Pathologist | | | | | At | Signature | + +---------+ + + + | BLOOD | 135 (H) | 70 - 99 mg/dL | [facility] - | | | GLUCOSE, | | | [facility] | | | POC | | | JULIANN SILVA | | | | | | OF CARE | | | | | | TESTS | | + +---------+ + + + + + | Specimen | + + | | + + + + + + + | Performing | Address | City/State/Zipcode | Phone Number | | Organization | | | | + + + + + | [facility] | [address] | [place], [place] | | | JULIANN SILVA OF [place] | [address] | [phone] | | | TESTS | | | | + + + + + CAPILLARY BLOOD GLUCOSE (NO CHG), POC (03/24/2017 4:14 PM PDT) + +---------+ + + + | Component | Value | Ref Range | Performed | Pathologist | | | | | At | Signature | + +---------+ + + + | BLOOD | 146 (H) | 70 - 99 mg/dL | [facility] - | | | GLUCOSE, | | | [facility] | | | POC | | | [place] [place] | | | | | | OF CARE | | | | | | TESTS | | + +---------+ + + + + + | Specimen | + + | | + + + + + + + | Performing | Address | City/State/Zipcode | Phone Number | | Organization | | | | + + + + + | [facility] | [address] | [place], [place] | | | JULIANN SIL[facility] OF [facility] | [address] | [phone] | | | TESTS | | | | + + + + + HEPARIN, EITHER STANDARD / LMW, BLOOD (03/24/2017 4:00 PM PDT) + +-------+ + + + | Component | Value | Ref Range | Performed | Pathologist | | | | | At | Signature | + +-------+ + + + | HEPARIN, | 0.41 | U/mL | [facility] | | | STD LMW | | | LABORATORY | | | | | | SERVICES, | | | | | | CORE | | + +-------+ + + + + + | Specimen | + + | Blood | + + + + + | Narrative | Performed At | + + + | LVAD/Advanced Heart Failure Heparin Protocol Heparin level 6 | [facility] | | hrs after every heparin rate change; If heparin level within target | LABORATORY | | range for 2 consecutive results, recheck every AM. Heparin, Either | SERVICES, CORE | | STD/LMW - Therapeutic Ranges: Heparin, Unfractionated: 0.35 - | | | 0.70 U/mL Enoxaparin, LMWH: 0.70 - 1.20 U/mL | | | Dalteparin, LMWH: 0.70 - 1.20 U/mL Tinzaparin, | | | LMWH: Therapeutic range not established. | | | Preliminary | | | studies suggest range | | | similar to | | | dalteparin. Clinical | | | correlation | | | required. Heparin levels may be unreliable for: | | | Total bilirubin | | | >28.8 mg/dL | | | Triglycerides | | | >690 mg/dL or | | | Moderate to Gross Hemolysis | | + + + + + + + + | Performing | Address | City/State/Zipcode | Phone Number | | Organization | | | | + + + + + | [facility] | [address] [facility] | [place] [address] | | | SERVICES, CORE | [address] | | | + + + + + POTASSIUM, PLASMA (03/24/2017 4:00 PM PDT) + +---------+ + + + | Component | Value | Ref Range | Performed | Pathologist | | | | | At | Signature | + +---------+ + + + | POTASSIUM, | 4.1 | 3.4 - 5.0 | [facility] | | | PLASMA | | mmol/L | LABORATORY | | | (LAB) | | | SERVICES, | | | | | | CORE | | + +---------+ + + + | POTASSIUM | No Hemo | | [facility] | | | WONNT | | | LABORATORY | | | | | | SERVICES, | | | | | | CORE | | + +---------+ + + + + + | Specimen | + + | Blood | + + + + + + + | Performing | Address | City/State/Zipcode | Phone Number | | Organization | | | | + + + + + | [facility] | [address] | [place] [address] | | | SERVICES, CORE | [address] | | | + + + + + CAPILLARY BLOOD GLUCOSE (NO CHG), POC (03/24/2017 11:45 AM PDT) + +---------+ + + + | Component | Value | Ref Range | Performed | Pathologist | | | | | At | Signature | + +---------+ + + + | BLOOD | 144 (H) | 70 - 99 mg/dL | [facility] - | | | GLUCOSE, | | | [facility] | | | POC | | | [place] [place] | | | | | | OF CARE | | | | | | TESTS | | + +---------+ + + + + + | Specimen | + + | | + + + + + + + | Performing | Address | City/State/Zipcode | Phone Number | | Organization | | | | + + + + + | [facility] | [address] [facility] [facility] [address] [address] | [place], [place] | | | [facility] | [address] | [phone] | | | TESTS | | | | + + + + + PROCEDURE NOTE (03/24/2017 11:25 AM PDT) + + + | Narrative | Performed At | + + + | Venice Matta RN 03/24/2017 11:25 AM Midline Insertion | | | Documentation Note Today's date: 03/24/17 Start Time: At | | | 1030, prior to the beginning of the procedure, the team paused to | | | verify the patient's identity, the procedure to be performed and the | | | correct side/site. The patient was positioned | | | appropriately. Any safety precautions were addressed. Patient | | | Location (Unit/Room#): 12K Indication for Midline: access | | | Procedure Details: Masks were worn by all members in the room | | | where the procedure was performed. Upper arm circumference | | | measured 10cm above AC was cm. Prior to initiating the procedure, | | | the practitioner thoroughly washed their hands and donned sterile | | | gloves. The procedure was performed using maximum sterile barrier | | | precautions. An ultrasound was used for pre-procedure | | | identification of the patient's vascular anatomy. The insertion site | | | was prepped with Guero cloth and Chloraprep. The arm was prepped and | | | draped in the procedural sterile fashion and the sterile field was | | | maintained at all times. Anesthesia was obtained with 1 mL of 1% | | | Lidocaine. Venipuncture was performed under direct ultrasound | | | guidance. Midline Catheter Insertion: The L cephelic vein | | | circumference was cm and cannulated with dark red, non-pulsatile | | | blood return. A 4fr 8cm midline catheter was placed on the 1 | | | attempt. Midline lot number [id number]; there was + blood | | | return. The catheter was flushed with 20 mL of Normal Saline, an | | | antimicrobial disc was placed at the insertion site and a catheter | | | securement device was utilized. Complications: none Placed | | | by: Venice Matta RN | | + + + CAPILLARY BLOOD GLUCOSE (NO CHG), POC (03/24/2017 10:39 AM PDT) + +---------+ + + + | Component | Value | Ref Range | Performed | Pathologist | | | | | At | Signature | + +---------+ + + + | BLOOD | 162 (H) | 70 - 99 mg/dL | [facility] - | | | GLUCOSE, | | | [facility] | | | POC | | | JULIANN SILVA | | | | | | OF CARE | | | | | | TESTS | | + +---------+ + + + + + | Specimen | + + | | + + + + + + + | Performing | Address | City/State/Zipcode | Phone Number | | Organization | | | | + + + + + | [facility] | [address] | [place], [place] | | | JULIANN SILVA OF CARE | [address] | [phone] | | | TESTS | | | | + + + + + CAPILLARY BLOOD GLUCOSE (NO CHG), POC (03/24/2017 8:41 AM PDT) + +---------+ + + + | Component | Value | Ref Range | Performed | Pathologist | | | | | At | Signature | + +---------+ + + + | BLOOD | 168 (H) | 70 - 99 mg/dL | [facility] - | | | GLUCOSE, | | | [facility] | | | POC | | | JUL[facility] S[facility] | | | | | | OF CARE | | | | | | TESTS | | + +---------+ + + + + + | Specimen | + + | | + + + + + + + | Performing | Address | City/State/Zipcode | Phone Number | | Organization | | | | + + + + + | [facility] | [address] | [place], [place] | | | [facility] | [address] | [address] | | | TESTS | | | | + + + + + HEPARIN, EITHER STANDARD / LMW, BLOOD (03/24/2017 8:33 AM PDT) + +-------+ + + + | Component | Value | Ref Range | Performed | Pathologist | | | | | At | Signature | + +-------+ + + + | HEPARIN, | 0.33 | U/mL | [facility] | | | STD LMW | | | LABORATORY | | | | | | SERVICES, | | | | | | CORE | | + +-------+ + + + + + | Specimen | + + | Blood | + + + + + | Narrative | Performed At | + + + | LVAD/Advanced Heart Failure Heparin Protocol Heparin level 6 | [facility] | | hrs after every heparin rate change; If heparin level within target | LABORATORY | | range for 2 consecutive results, recheck every AM. Heparin, Either | SERVICES, CORE | | STD/LMW - Therapeutic Ranges: Heparin, Unfractionated: 0.35 - | | | 0.70 U/mL Enoxaparin, LMWH: 0.70 - 1.20 U/mL | | | Dalteparin, LMWH: 0.70 - 1.20 U/mL Tinzaparin, | | | LMWH: Therapeutic range not established. | | | Preliminary | | | studies suggest range | | | similar to | | | dalteparin. Clinical | | | correlation | | | required. Heparin levels may be unreliable for: | | | Total bilirubin | | | >28.8 mg/dL | | | Triglycerides | | | >690 mg/dL or | | | Moderate to Gross Hemolysis | | + + + + + + + + | Performing | Address | City/State/Zipcode | Phone Number | | Organization | | | | + + + + + | [facility] | [address] | [place] [address] | | | SERVICES, CORE | [address] | | | + + + + + CAPILLARY BLOOD GLUCOSE (NO CHG), POC (03/24/2017 6:52 AM PDT) + +---------+ + + + | Component | Value | Ref Range | Performed | Pathologist | | | | | At | Signature | + +---------+ + + + | BLOOD | 121 (H) | 70 - 99 mg/dL | [facility] - | | | GLUCOSE, | | | [facility] | | | POC | | | JULIANN SILVA | | | | | | OF CARE | | | | | | TESTS | | + +---------+ + + + + + | Specimen | + + | | + + + + + + + | Performing | Address | City/State/Zipcode | Phone Number | | Organization | | | | + + + + + | [facility] | [address] | [place], [place] | | | JULIANN SILVA OF [place] | [address] | [address] | | | TESTS | | | | + + + + + CAPILLARY BLOOD GLUCOSE (NO CHG), POC (03/24/2017 5:44 AM PDT) + +---------+ + + + | Component | Value | Ref Range | Performed | Pathologist | | | | | At | Signature | + +---------+ + + + | BLOOD | 144 (H) | 70 - 99 mg/dL | [facility] - | | | GLUCOSE, | | | [facility] | | | POC | | | [place] | | | | | | [facility] CARE | | | | | | TESTS | | + +---------+ + + + + + | Specimen | + + | | + + + + + + + | Performing | Address | City/State/Zipcode | Phone Number | | Organization | | | | + + + + + | [facility] | [address] | [place], [place] | | | JULIANN SILVA OF [place] | [facility] | [address] | | | TESTS | | | | + + + + + CAPILLARY BLOOD GLUCOSE (NO CHG), POC (03/24/2017 3:50 AM PDT) + +---------+ + + + | Component | Value | Ref Range | Performed | Pathologist | | | | | At | Signature | + +---------+ + + + | BLOOD | 114 (H) | 70 - 99 mg/dL | [facility] - | | | GLUCOSE, | | | [place] | | | POC | | | JULIANN SILVA | | | | | | OF CARE | | | | | | TESTS | | + +---------+ + + + + + | Specimen | + + | | + + + + + + + | Performing | Address | City/State/Zipcode | Phone Number | | Organization | | | | + + + + + | [facility] | [address] | [place], [place] | | | JULIANN SILVA OF CARE | [address] | [address] | | | TESTS | | | | + + + + + CAPILLARY BLOOD GLUCOSE (NO CHG), POC (03/24/2017 2:02 AM PDT) + +---------+ + + + | Component | Value | Ref Range | Performed | Pathologist | | | | | At | Signature | + +---------+ + + + | BLOOD | 100 (H) | 70 - 99 mg/dL | [facility] - | | | GLUCOSE, | | | [facility] | | | POC | | | JULIANN SILVA | | | | | | OF CARE | | | | | | TESTS | | + +---------+ + + + + + | Specimen | + + | | + + + + + + + | Performing | Address | City/State/Zipcode | Phone Number | | Organization | | | | + + + + + | [facility] | [address] | [place], [place] | | | GURINDER SILVA | [facility] | [address] | | | TESTS | | | | + + + + + CBC AND AUTO DIFF (03/24/2017 12:12 AM PDT) + + + + + + | Component | Value | Ref Range | Performed | Pathologist | | | | | At | Signature | + + + + + + | WHITE CELL | 14.56 (H) | 3.50 - 10.80 | [facility] | | | COUNT | | K/cu mm | LABORATORY | | | | | | SERVICES, | | | | | | CORE | | + + + + + + | RED CELL | 2.66 (L) | 4.50 - 6.00 | [facility] | | | COUNT | | M/cu mm | LABORATORY | | | | | | SERVICES, | | | | | | CORE | | + + + + + + | HEMOGLOBIN | 8.1 (L) | 13.5 - 17.5 | [facility] | | | | | g/dL | LABORATORY | | | | | | SERVICES, | | | | | | CORE | | + + + + + + | HEMATOCRIT | 24.6 (L) | 41.0 - 53.0 % | [facility] | | | | | | LABORATORY | | | | | | SERVICES, | | | | | | CORE | | + + + + + + | MCV | 92.5 | 80.0 - 96.0 fL | [facility] | | | | | | LABORATORY | | | | | | SERVICES, | | | | | | CORE | | + + + + + + | MCHC | 32.9 | 33.0 - 35.5 | [facility] | | | | | g/dL | LABORATORY | | | | | | SERVICES, | | | | | | CORE | | + + + + + + | RDW SD | 51.3 (H) | 35.1 - 46.3 fL | [facility] | | | | | | LABORATORY | | | | | | SERVICES, | | | | | | CORE | | + + + + + + | PLATELET | 255 | 150 - 400 K/cu | [facility] | | | COUNT | | mm | LABORATORY | | | | | | SERVICES, | | | | | | CORE | | + + + + + + | MPV | 10.8 | 9.7 - 12.3 fL | [facility] | | | | | | LABORATORY | | | | | | SERVICES, | | | | | | CORE | | + + + + + + | NRBC% | 0.8 (H) | 0.0 - 0.3 % | [facility] | | | | | | LABORATORY | | | | | | SERVICES, | | | | | | CORE | | + + + + + + | NRBC# | 0.11 (H) | 0.00 - 0.02 | [facility] | | | | | K/cu mm | LABORATORY | | | | | | SERVICES, | | | | | | CORE | | + + + + + + | NEUTROPHIL | 82.5 (H) | 50.0 - 70.0 % | [facility] | | | % | | | LABORATORY | | | | | | SERVICES, | | | | | | CORE | | + + + + + + | LYMPHOCYTE | 8.3 (L) | 18.0 - 42.0 % | [facility] | | | % | | | LABORATORY | | | | | | SERVICES, | | | | | | CORE | | + + + + + + | MONOCYTE % | 5.3 | 3.5 - 9.0 % | [facility] | | | | | | LABORATORY | | | | | | SERVICES, | | | | | | CORE | | + + + + + + | EOS % | 0.7 (L) | 1.0 - 3.0 % | [facility] | | | | | | LABORATORY | | | | | | SERVICES, | | | | | | CORE | | + + + + + + | BASO % | 0.1 | 0.0 - 2.0 % | [facility] | | | | | | LABORATORY | | | | | | SERVICES, | | | | | | CORE | | + + + + + + | IG% | 3.1 (H)Comment: Immature | 0.0 - 0.6 % | [facility] | | | | Granulocytes (IG) | | LABORATORY | | | | include metamyelocytes, | | SERVICES, | | | | myelocytes and | | CORE | | | | promyelocytes. Bands | | | | | | are not included in the | | | | | | IG count. Bands are | | | | | | included in the | | | | | | neutrophil count. | | | | + + + + + + | NEUTROPHIL | 12.01 (H) | 1.80 - 7.70 | [facility] | | | # | | K/cu mm | LABORATORY | | | | | | SERVICES, | | | | | | CORE | | + + + + + + | LYMPHOCYTE | 1.21 | 1.00 - 4.80 | [facility] | | | # | | K/cu mm | LABORATORY | | | | | | SERVICES, | | | | | | CORE | | + + + + + + | MONOCYTE # | 0.77 | 0.10 - 0.90 | [facility] | | | | | K/cu mm | LABORATORY | | | | | | SERVICES, | | | | | | CORE | | + + + + + + | EOS # | 0.10 | 0.00 - 0.50 | [facility] | | | | | K/cu mm | LABORATORY | | | | | | SERVICES, | | | | | | CORE | | + + + + + + | BASO # | 0.02 | 0.00 - 0.10 | [facility] | | | | | K/cu mm | LABORATORY | | | | | | SERVICES, | | | | | | CORE | | + + + + + + | IG# | 0.45 (H) | 0.00 - 0.03 | [facility] | | | | | K/cu mm | LABORATORY | | | | | | SERVICES, | | | | | | CORE | | + + + + + + + + | Specimen | + + | Blood | + + + + + | Narrative | Performed At | + + + | Immature Granulocytes (IG) include metamyelocytes, myelocytes | [facility] | | and promyelocytes. Bands are not included in the IG count. Bands | LABORATORY | | are included in the neutrophil count. | [facility] | + + + + + + + + | Performing | Address | City/State/Zipcode | Phone Number | | Organization | | | | + + + + + | [facility] | [address] | [place] [address] | | | ИРИНА ANTOINE | [address] | | | + + + + + INR (03/24/2017 12:12 AM PDT) + +-------+ + + + | Component | Value | Ref Range | Performed | Pathologist | | | | | At | Signature | + +-------+ + + + | INR | 1.17 | 0.90 - 1.20 INR | [facility] | | | | | | LABORATORY | | | | | | SERVICES, | | | | | | CORE | | + +-------+ + + + + + | Specimen | + + | Blood | + + + + + | Narrative | Performed At | + + + | LVAD/Advanced Heart Failure Heparin Protocol Heparin level 6 | [facility] | | hrs after every heparin rate change; If heparin level within target | LABORATORY | | range for 2 consecutive results, recheck every AM. INR Therapeutic | SERVICES, CORE | | ranges for full anticoagulation: INR for Venous | | | Thromboembolism (2.0 - 3.0) INR INR for most | | | patients with mech. valves (2.5 - 3.5) INR | | + + + + + + + + | Performing | Address | City/State/Zipcode | Phone Number | | Organization | | | | + + + + + | [facility] | [address] | [place] [address] | | | ИРИНА ANTOINE | [address] | | | + + + + + MAGNESIUM, PLASMA (03/24/2017 12:12 AM PDT) + +---------+ + + + | Component | Value | Ref Range | Performed | Pathologist | | | | | At | Signature | + +---------+ + + + | MAGNESIUM,P | 2.8 (H) | 1.8 - 2.5 mg/dL | [facility] | | | LASMA | | | LABORATORY | | | | | | SERVICES, | | | | | | CORE | | + +---------+ + + + + + | Specimen | + + | Blood | + + + + + + + | Performing | Address | City/State/Zipcode | Phone Number | | Organization | | | | + + + + + | [facility] | [address] | [place] [address] | | | SERVICES, CORE | [address] | | | + + + + + RENAL FUNCTION SET (NA,K,CL,CO2,BUN,CREAT,GLUC,CA,PHOS,ALB ) (03/24/2017 12:12 AM PDT) + + + + + + | Component | Value | Ref Range | Performed | Pathologist | | | | | At | Signature | + + + + + + | GLUCOSE, | 164 (H) | 70 - 99 mg/dL | [facility] | | | PLASMA | | | LABORATORY | | | (LAB) | | | SERVICES, | | | | | | CORE | | + + + + + + | BUN, PLASMA | 47 (H) | 6 - 20 mg/dL | [facility] | | | (LAB) | | | LABORATORY | | | | | | SERVICES, | | | | | | CORE | | + + + + + + | CREATININE | 1.52 (H) | 0.70 - 1.30 | [facility] | | | PLASMA | | mg/dL | LABORATORY | | | (LAB) | | | SERVICES, | | | | | | CORE | | + + + + + + | EGFR | 57 (L) | >60 mL/min | [facility] | | | - | | | LABORATORY | | | SLOVENIAN | | | SERVICES, | | | | | | CORE | | + + + + + + | EGFR NON | 47 (L) | >60 mL/min | [facility] | | | -SOREN | | | LABORATORY | | | RICAN | | | SERVICES, | | | | | | CORE | | + + + + + + | SODIUM, | 133 (L) | 136 - 145 | [facility] | | | PLASMA | | mmol/L | LABORATORY | | | (LAB) | | | SERVICES, | | | | | | CORE | | + + + + + + | POTASSIUM, | 4.0 | 3.4 - 5.0 | [facility] | | | PLASMA | | mmol/L | LABORATORY | | | (LAB) | | | SERVICES, | | | | | | CORE | | + + + + + + | CHLORIDE, | 97 | 97 - 108 mmol/L | [facility] | | | PLASMA | | | LABORATORY | | | (LAB) | | | SERVICES, | | | | | | CORE | | + + + + + + | TOTAL CO2, | 27 | 21 - 32 mmol/L | [facility] | | | PLASMA | | | LABORATORY | | | (LAB) | | | SERVICES, | | | | | | CORE | | + + + + + + | CALCIUM, | 8.1 (L) | 8.6 - 10.2 | [facility] | | | PLASMA | | mg/dL | LABORATORY | | | (LAB) | | | SERVICES, | | | | | | CORE | | + + + + + + | CALCIUM(ALB | 9.6 | 8.6 - 10.2 | [facility] | | | CORRECTED) | | mg/dL | LABORATORY | | | | | | SERVICES, | | | | | | CORE | | + + + + + + | ALBUMIN, | 2.1 (L) | 3.5 - 4.7 g/dL | [facility] | | | PLASMA | | | LABORATORY | | | (LAB) | | | SERVICES, | | | | | | CORE | | + + + + + + | PHOSPHORUS, | 4.6 | 2.4 - 4.7 mg/dL | [facility] | | | PLASMA | | | LABORATORY | | | (LAB) | | | SERVICES, | | | | | | CORE | | + + + + + + | POTASSIUM | No Hemo | | [facility] | | | CMNT | | | LABORATORY | | | | | | SERVICES, | | | | | | CORE | | + + + + + + | ANION GAP | 9 | mmol/L | [facility] | | | | | | LABORATORY | | | | | | SERVICES, | | | | | | CORE | | + + + + + + | ANION | 13 (H) | 4 - 11 mmol/L | [facility] | | | GAP(ALB | | | LABORATORY | | | CORRECTED) | | | SERVICES, | | | | | | CORE | | + + + + + + + + | Specimen | + + | Blood | + + + + + | Narrative | Performed At | + + + | Adult glucose reference range change effective 7-12-17. GFR is | [facility] | | estimated using the MDRD equation recommended by the National Kidney | LABORATORY | | Disease Education Program. Estimated GFR Interpretive Information: | [facility] | | <60 mL/min/1.73 sq m Chronic Kidney | | | Disease <15 mL/min/1.73 sq m Kidney | | | Failure Estimated GFR greater that 60 mL/min/1.73 sq m is of limited | | | clinical value. The MDRD equation is not valid in the following | | | situations: - Patients under 18 years of age - Severe malnutrition | | | or obesity - Vegetarian diet - Rapidly changing kidney function | | + + + + + + + + | Performing | Address | City/State/[facility] | Phone Number | | Organization | | | | + + + + + | [facility] | [address] | [place] [address] | | | ИРИНА ANTOINE | [address] | | | + + + + + HEPARIN, EITHER STANDARD / LMW, BLOOD (03/24/2017 12:12 AM PDT) + +-------+ + + + | Component | Value | Ref Range | Performed | Pathologist | | | | | At | Signature | + +-------+ + + + | HEPARIN, | 0.28 | U/mL | [facility] | | | STD LMW | | | LABORATORY | | | | | | SERVICES, | | | | | | CORE | | + +-------+ + + + + + | Specimen | + + | Blood | + + + + + | Narrative | Performed At | + + + | LVAD/Advanced Heart Failure Heparin Protocol Heparin level 6 | [facility] | | hrs after every heparin rate change; If heparin level within target | LABORATORY | | range for 2 consecutive results, recheck every AM. Heparin, Either | SERVICES, CORE | | STD/LMW - Therapeutic Ranges: Heparin, Unfractionated: 0.35 - | | | 0.70 U/mL Enoxaparin, LMWH: 0.70 - 1.20 U/mL | | | Dalteparin, LMWH: 0.70 - 1.20 U/mL Tinzaparin, | | | LMWH: Therapeutic range not established. | | | Preliminary | | | studies suggest range | | | similar to | | | dalteparin. Clinical | | | correlation | | | required. Heparin levels may be unreliable for: | | | Total bilirubin | | | >28.8 mg/dL | | | Triglycerides | | | >690 mg/dL or | | | Moderate to Gross Hemolysis | | + + + + + + + + | Performing | Address | City/State/Zipcode | Phone Number | | Organization | | | | + + + + + | [facility] | [address] | [place] [address] | | | ИРИНА ANTOINE | [address] | | | + + + + + CAPILLARY BLOOD GLUCOSE (NO CHG), POC (03/24/2017 12:10 AM PDT) + +---------+ + + + | Component | Value | Ref Range | Performed | Pathologist | | | | | At | Signature | + +---------+ + + + | BLOOD | 146 (H) | 70 - 99 mg/dL | [facility] - | | | GLUCOSE, | | | [facility] | | | POC | | | [facility] | | | | | | OF CARE | | | | | | TESTS | | + +---------+ + + + + + | Specimen | + + | | + + + + + + + | Performing | Address | City/State/Zipcode | Phone Number | | Organization | | | | + + + + + | [facility] | [address] | [place], [place] | | | [facility] [place] | [address] | [address] | | | TESTS | | | | + + + + + CAPILLARY BLOOD GLUCOSE (NO CHG), POC (03/23/2017 10:08 PM PDT) + +---------+ + + + | Component | Value | Ref Range | Performed | Pathologist | | | | | At | Signature | + +---------+ + + + | BLOOD | 156 (H) | 70 - 99 mg/dL | [facility] - | | | GLUCOSE, | | | [facility] | | | POC | | | [facility] | | | | | | OF CARE | | | | | | TESTS | | + +---------+ + + + + + | Specimen | + + | | + + + + + + + | Performing | Address | City/State/Zipcode | Phone Number | | Organization | | | | + + + + + | [facility] | [address] | [place], [place] | | | [facility] [place] | [facility] | [address] | | | TESTS | | | | + + + + + CAPILLARY BLOOD GLUCOSE (NO CHG), POC (03/23/2017 7:07 PM PDT) + +---------+ + + + | Component | Value | Ref Range | Performed | Pathologist | | | | | At | Signature | + +---------+ + + + | BLOOD | 146 (H) | 70 - 99 mg/dL | [facility] - | | | GLUCOSE, | | | [facility] | | | POC | | | [place] | | | | | | OF CARE | | | | | | TESTS | | + +---------+ + + + + + | Specimen | + + | | + + + + + + + | Performing | Address | City/State/Zipcode | Phone Number | | Organization | | | | + + + + + | [facility] | [address] | [place], [place] | | | [facility] | [facility] | [address] | | | TESTS | | | | + + + + + CAPILLARY BLOOD GLUCOSE (NO CHG), POC (03/23/2017 5:45 PM PDT) + +---------+ + + + | Component | Value | Ref Range | Performed | Pathologist | | | | | At | Signature | + +---------+ + + + | BLOOD | 125 (H) | 70 - 99 mg/dL | [facility] - | | | GLUCOSE, | | | [facility] | | | POC | | | [facility] | | | | | | OF CARE | | | | | | TESTS | | + +---------+ + + + + + | Specimen | + + | | + + + + + + + | Performing | Address | City/State/Zipcode | Phone Number | | Organization | | | | + + + + + | [facility] | [address] | [place], [place] | | | [facility] | [address] | [address] | | | TESTS | | | | + + + + + POTASSIUM, PLASMA (03/23/2017 2:48 PM PDT) + +---------+ + + + | Component | Value | Ref Range | Performed | Pathologist | | | | | At | Signature | + +---------+ + + + | POTASSIUM, | 3.6 | 3.4 - 5.0 | [facility] | | | PLASMA | | mmol/L | LABORATORY | | | (LAB) | | | SERVICES, | | | | | | CORE | | + +---------+ + + + | POTASSIUM | No Hemo | | [facility] | | | CMNT | | | LABORATORY | | | | | | SERVICES, | | | | | | CORE | | + +---------+ + + + + + | Specimen | + + | Blood | + + + + + + + | Performing | Address | City/State/Zipcode | Phone Number | | Organization | | | | + + + + + | [facility] | [address] | [place] [address] | | | ARASH, CORE | [address] | | | + + + + + CAPILLARY BLOOD GLUCOSE (NO CHG), POC (03/23/2017 2:47 PM PDT) + +---------+ + + + | Component | Value | Ref Range | Performed | Pathologist | | | | | At | Signature | + +---------+ + + + | BLOOD | 164 (H) | 70 - 99 mg/dL | [facility] - | | | GLUCOSE, | | | [facility] | | | POC | | | [facility] | | | | | | OF CARE | | | | | | TESTS | | + +---------+ + + + + + | Specimen | + + | | + + + + + + + | Performing | Address | City/State/Zipcode | Phone Number | | Organization | | | | + + + + + | [facility] | [address] | [place], [place] | | | [facility] | [address] | [address] | | | TESTS | | | | + + + + + CAPILLARY BLOOD GLUCOSE (NO CHG), POC (03/23/2017 1:53 PM PDT) + +---------+ + + + | Component | Value | Ref Range | Performed | Pathologist | | | | | At | Signature | + +---------+ + + + | BLOOD | 172 (H) | 70 - 99 mg/dL | [facility] - | | | GLUCOSE, | | | [facility] | | | POC | | | [facility] | | | | | | OF CARE | | | | | | TESTS | | + +---------+ + + + + + | Specimen | + + | | + + + + + + + | Performing | Address | City/State/Zipcode | Phone Number | | Organization | | | | + + + + + | [facility] | [address] | [place], [place] | | | [facility] | [address] | [address] | | | TESTS | | | | + + + + + POTASSIUM, PLASMA (03/23/2017 1:28 PM PDT) + + + + + + | Component | Value | Ref Range | Performed | Pathologist | | | | | At | Signature | + + + + + + | POTASSIUM, | 4.9 | 3.4 - 5.0 | [facility] | | | PLASMA | | mmol/L | LABORATORY | | | (LAB) | | | SERVICES, | | | | | | CORE | | + + + + + + | POTASSIUM | Mod Hemo | | [facility] | | | CMNT | | | LABORATORY | | | | | | SERVICES, | | | | | | CORE | | + + + + + + + + | Specimen | + + | Blood | + + + + + | Narrative | Performed At | + + + | Sample hemolyzed. Results for K, Total Bili, Direct Bili, AST, | [facility] | | LDH, or HDL may be inaccurate. Refer to comment under test result. | LABORATORY | | | SERVICES, CORE | + + + + + + + + | Performing | Address | City/State/Zipcode | Phone Number | | Organization | | | | + + + + + | [facility] | [address] | [place] [address] | | | SERVICES, CORE | [address] | | | + + + + + CAPILLARY BLOOD GLUCOSE (NO CHG), POC (03/23/2017 11:42 AM PDT) + +---------+ + + + | Component | Value | Ref Range | Performed | Pathologist | | | | | At | Signature | + +---------+ + + + | BLOOD | 128 (H) | 70 - 99 mg/dL | [facility] - | | | GLUCOSE, | | | [facility] | | | POC | | | [facility] | | | | | | OF CARE | | | | | | TESTS | | + +---------+ + + + + + | Specimen | + + | | + + + + + + + | Performing | Address | City/State/Zipcode | Phone Number | | Organization | | | | + + + + + | [facility] | [address] | [place], [place] | | | [facility] | [address] | [address] | | | TESTS | | | | + + + + + CAPILLARY BLOOD GLUCOSE (NO CHG), POC (03/23/2017 9:18 AM PDT) + +---------+ + + + | Component | Value | Ref Range | Performed | Pathologist | | | | | At | Signature | + +---------+ + + + | BLOOD | 144 (H) | 70 - 99 mg/dL | [facility] - | | | GLUCOSE, | | | [facility] | | | POC | | | [facility] | | | | | | OF CARE | | | | | | TESTS | | + +---------+ + + + + + | Specimen | + + | | + + + + + + + | Performing | Address | City/State/Zipcode | Phone Number | | Organization | | | | + + + + + | [facility] | [address] | [place], [place] | | | [facility] | [address] | [address] | | | TESTS | | | | + + + + + CAPILLARY BLOOD GLUCOSE (NO CHG), POC (03/23/2017 6:13 AM PDT) + +---------+ + + + | Component | Value | Ref Range | Performed | Pathologist | | | | | At | Signature | + +---------+ + + + | BLOOD | 140 (H) | 70 - 99 mg/dL | [facility] - | | | GLUCOSE, | | | [facility] | | | POC | | | [facility] | | | | | | OF CARE | | | | | | TESTS | | + +---------+ + + + + + | Specimen | + + | | + + + + + + + | Performing | Address | City/State/Zipcode | Phone Number | | Organization | | | | + + + + + | [facility] | [address] | [place], [place] | | | [facility] | [address] | [address] | | | TESTS | | | | + + + + + CAPILLARY BLOOD GLUCOSE (NO CHG), POC (03/23/2017 4:02 AM PDT) + +---------+ + + + | Component | Value | Ref Range | Performed | Pathologist | | | | | At | Signature | + +---------+ + + + | BLOOD | 140 (H) | 70 - 99 mg/dL | [facility] - | | | GLUCOSE, | | | [facility] | | | POC | | | [facility] | | | | | | OF CARE | | | | | | TESTS | | + +---------+ + + + + + | Specimen | + + | | + + + + + + + | Performing | Address | City/State/Zipcode | Phone Number | | Organization | | | | + + + + + | [facility] | [address] | [place], [place] | | | [facility] | [address] | [address] | | | TESTS | | | | + + + + + CAPILLARY BLOOD GLUCOSE (NO CHG), POC (03/23/2017 2:05 AM PDT) + +---------+ + + + | Component | Value | Ref Range | Performed | Pathologist | | | | | At | Signature | + +---------+ + + + | BLOOD | 127 (H) | 70 - 99 mg/dL | [facility] - | | | GLUCOSE, | | | [facility] | | | POC | | | [facility] | | | | | | OF CARE | | | | | | TESTS | | + +---------+ + + + + + | Specimen | + + | | + + + + + + + | Performing | Address | City/State/Zipcode | Phone Number | | Organization | | | | + + + + + | [facility] | [address] | [place], [place] | | | [facility] | [address] | [address] | | | TESTS | | | | + + + + + CBC AND AUTO DIFF (03/23/2017 2:00 AM PDT) + + + + + + | Component | Value | Ref Range | Performed | Pathologist | | | | | At | Signature | + + + + + + | WHITE CELL | 11.49 (H) | 3.50 - 10.80 | [facility] | | | COUNT | | K/cu mm | LABORATORY | | | | | | SERVICES, | | | | | | CORE | | + + + + + + | RED CELL | 2.68 (L) | 4.50 - 6.00 | [facility] | | | COUNT | | M/cu mm | LABORATORY | | | | | | SERVICES, | | | | | | CORE | | + + + + + + | HEMOGLOBIN | 8.2 (L) | 13.5 - 17.5 | [facility] | | | | | g/dL | LABORATORY | | | | | | SERVICES, | | | | | | CORE | | + + + + + + | HEMATOCRIT | 24.8 (L) | 41.0 - 53.0 % | [facility] | | | | | | LABORATORY | | | | | | SERVICES, | | | | | | CORE | | + + + + + + | MCV | 92.5 | 80.0 - 96.0 fL | [facility] | | | | | | LABORATORY | | | | | | SERVICES, | | | | | | CORE | | + + + + + + | MCHC | 33.1 | 33.0 - 35.5 | [facility] | | | | | g/dL | LABORATORY | | | | | | SERVICES, | | | | | | CORE | | + + + + + + | RDW SD | 54.3 (H) | 35.1 - 46.3 fL | [facility] | | | | | | LABORATORY | | | | | | SERVICES, | | | | | | CORE | | + + + + + + | PLATELET | 206 | 150 - 400 K/cu | [facility] | | | COUNT | | mm | LABORATORY | | | | | | SERVICES, | | | | | | CORE | | + + + + + + | MPV | 11.0 | 9.7 - 12.3 fL | [facility] | | | | | | LABORATORY | | | | | | SERVICES, | | | | | | CORE | | + + + + + + | NRBC% | 0.9 (H) | 0.0 - 0.3 % | [facility] | | | | | | LABORATORY | | | | | | SERVICES, | | | | | | CORE | | + + + + + + | NRBC# | 0.10 (H) | 0.00 - 0.02 | [facility] | | | | | K/cu mm | LABORATORY | | | | | | SERVICES, | | | | | | CORE | | + + + + + + | NEUTROPHIL | 70.8 (H) | 50.0 - 70.0 % | [facility] | | | % | | | LABORATORY | | | | | | SERVICES, | | | | | | CORE | | + + + + + + | LYMPHOCYTE | 15.7 (L) | 18.0 - 42.0 % | [facility] | | | % | | | LABORATORY | | | | | | SERVICES, | | | | | | CORE | | + + + + + + | MONOCYTE % | 7.4 | 3.5 - 9.0 % | [facility] | | | | | | LABORATORY | | | | | | SERVICES, | | | | | | CORE | | + + + + + + | EOS % | 0.9 (L) | 1.0 - 3.0 % | [facility] | | | | | | LABORATORY | | | | | | SERVICES, | | | | | | CORE | | + + + + + + | BASO % | 0.3 | 0.0 - 2.0 % | [facility] | | | | | | LABORATORY | | | | | | SERVICES, | | | | | | CORE | | + + + + + + | IG% | 4.9 (H)Comment: Immature | 0.0 - 0.6 % | [facility] | | | | Granulocytes (IG) | | LABORATORY | | | | include metamyelocytes, | | SERVICES, | | | | myelocytes and | | CORE | | | | promyelocytes. Bands | | | | | | are not included in the | | | | | | IG count. Bands are | | | | | | included in the | | | | | | neutrophil count. | | | | + + + + + + | NEUTROPHIL | 8.15 (H) | 1.80 - 7.70 | [facility] | | | # | | K/cu mm | LABORATORY | | | | | | SERVICES, | | | | | | CORE | | + + + + + + | LYMPHOCYTE | 1.80 | 1.00 - 4.80 | [facility] | | | # | | K/cu mm | LABORATORY | | | | | | SERVICES, | | | | | | CORE | | + + + + + + | MONOCYTE # | 0.85 | 0.10 - 0.90 | [facility] | | | | | K/cu mm | LABORATORY | | | | | | SERVICES, | | | | | | CORE | | + + + + + + | EOS # | 0.10 | 0.00 - 0.50 | [facility] | | | | | K/cu mm | LABORATORY | | | | | | SERVICES, | | | | | | CORE | | + + + + + + | BASO # | 0.03 | 0.00 - 0.10 | [facility] | | | | | K/cu mm | LABORATORY | | | | | | SERVICES, | | | | | | CORE | | + + + + + + | IG# | 0.56 (H) | 0.00 - 0.03 | [facility] | | | | | K/cu mm | LABORATORY | | | | | | SERVICES, | | | | | | CORE | | + + + + + + + + | Specimen | + + | Blood | + + + + + | Narrative | Performed At | + + + | Immature Granulocytes (IG) include metamyelocytes, myelocytes | [facility] | | and promyelocytes. Bands are not included in the IG count. Bands | LABORATORY | | are included in the neutrophil count. | SERVICES, CORE | + + + + + + + + | Performing | Address | City/State/Zipcode | Phone Number | | Organization | | | | + + + + + | [facility] | [address] | [place] [address] | | | SERVICES, CORE | [address] | | | + + + + + INR (03/23/2017 2:00 AM PDT) + +-------+ + + + | Component | Value | Ref Range | Performed | Pathologist | | | | | At | Signature | + +-------+ + + + | INR | 1.17 | 0.90 - 1.20 INR | [facility] | | | | | | LABORATORY | | | | | | SERVICES, | | | | | | CORE | | + +-------+ + + + + + | Specimen | + + | Blood | + + + + + | Narrative | Performed At | + + + | LVAD/Advanced Heart Failure Heparin Protocol Heparin level 6 | [facility] | | hrs after every heparin rate change; If heparin level within target | LABORATORY | | range for 2 consecutive results, recheck every AM. INR Therapeutic | SERVICES, CORE | | ranges for full anticoagulation: INR for Venous | | | Thromboembolism (2.0 - 3.0) INR INR for most | | | patients with mech. valves (2.5 - 3.5) INR | | + + + + + + + + | Performing | Address | City/State/Zipcode | Phone Number | | Organization | | | | + + + + + | [facility] | [address] | [place] [address] | | | SERVICES, CORE | [address] | | | + + + + + MAGNESIUM, PLASMA (03/23/2017 2:00 AM PDT) + +---------+ + + + | Component | Value | Ref Range | Performed | Pathologist | | | | | At | Signature | + +---------+ + + + | MAGNESIUM,P | 2.7 (H) | 1.8 - 2.5 mg/dL | [facility] | | | LASMA | | | LABORATORY | | | | | | SERVICES, | | | | | | CORE | | + +---------+ + + + + + | Specimen | + + | Blood | + + + + + + + | Performing | Address | City/State/Zipcode | Phone Number | | Organization | | | | + + + + + | [facility] | [address] | [place] [address] | | | SERVICES, CORE | [address] | | | + + + + + RENAL FUNCTION SET (NA,K,CL,CO2,BUN,CREAT,GLUC,CA,PHOS,ALB ) (03/23/2017 2:00 AM PDT) + + + + + + | Component | Value | Ref Range | Performed | Pathologist | | | | | At | Signature | + + + + + + | GLUCOSE, | 127 (H) | 70 - 99 mg/dL | [facility] | | | PLASMA | | | LABORATORY | | | (LAB) | | | SERVICES, | | | | | | CORE | | + + + + + + | BUN, PLASMA | 48 (H) | 6 - 20 mg/dL | [facility] | | | (LAB) | | | LABORATORY | | | | | | SERVICES, | | | | | | CORE | | + + + + + + | CREATININE | 1.56 (H) | 0.70 - 1.30 | [facility] | | | PLASMA | | mg/dL | LABORATORY | | | (LAB) | | | SERVICES, | | | | | | CORE | | + + + + + + | EGFR | 55 (L) | >60 mL/min | [facility] | | | - | | | LABORATORY | | | SLOVENIAN | | | SERVICES, | | | | | | CORE | | + + + + + + | EGFR NON | 45 (L) | >60 mL/min | [facility] | | | -SOREN | | | LABORATORY | | | RICAN | | | SERVICES, | | | | | | CORE | | + + + + + + | SODIUM, | 140 | 136 - 145 | [facility] | | | PLASMA | | mmol/L | LABORATORY | | | (LAB) | | | SERVICES, | | | | | | CORE | | + + + + + + | POTASSIUM, | 3.3 (L) | 3.4 - 5.0 | [facility] | | | PLASMA | | mmol/L | LABORATORY | | | (LAB) | | | SERVICES, | | | | | | CORE | | + + + + + + | CHLORIDE, | 101 | 97 - 108 mmol/L | [facility] | | | PLASMA | | | LABORATORY | | | (LAB) | | | SERVICES, | | | | | | CORE | | + + + + + + | TOTAL CO2, | 30 | 21 - 32 mmol/L | [facility] | | | PLASMA | | | LABORATORY | | | (LAB) | | | SERVICES, | | | | | | CORE | | + + + + + + | CALCIUM, | 7.7 (L) | 8.6 - 10.2 | [facility] | | | PLASMA | | mg/dL | LABORATORY | | | (LAB) | | | SERVICES, | | | | | | CORE | | + + + + + + | CALCIUM(ALB | 9.2 | 8.6 - 10.2 | [facility] | | | CORRECTED) | | mg/dL | LABORATORY | | | | | | SERVICES, | | | | | | CORE | | + + + + + + | ALBUMIN, | 2.1 (L) | 3.5 - 4.7 g/dL | [facility] | | | PLASMA | | | LABORATORY | | | (LAB) | | | SERVICES, | | | | | | CORE | | + + + + + + | PHOSPHORUS, | 4.9 (H) | 2.4 - 4.7 mg/dL | [facility] | | | PLASMA | | | LABORATORY | | | (LAB) | | | SERVICES, | | | | | | CORE | | + + + + + + | POTASSIUM | No Hemo | | [facility] | | | CMNT | | | LABORATORY | | | | | | SERVICES, | | | | | | CORE | | + + + + + + | ANION GAP | 9 | mmol/L | [facility] | | | | | | LABORATORY | | | | | | SERVICES, | | | | | | CORE | | + + + + + + | ANION | 13 (H) | 4 - 11 mmol/L | [facility] | | | GAP(ALB | | | LABORATORY | | | CORRECTED) | | | SERVICES, | | | | | | CORE | | + + + + + + + + | Specimen | + + | Blood | + + + + + | Narrative | Performed At | + + + | Adult glucose reference range change effective 712-17. GFR is | [facility] | | estimated using the MDRD equation recommended by the National Kidney | LABORATORY | | Disease Education Program. Estimated GFR Interpretive Information: | SERVICES, CORE | | <60 mL/min/1.73 sq m Chronic Kidney | | | Disease <15 mL/min/1.73 sq m Kidney | | | Failure Estimated GFR greater that 60 mL/min/1.73 sq m is of limited | | | clinical value. The MDRD equation is not valid in the following | | | situations: - Patients under 18 years of age - Severe malnutrition | | | or obesity - Vegetarian diet - Rapidly changing kidney function | | + + + + + + + + | Performing | Address | City/State/Zipcode | Phone Number | | Organization | | | | + + + + + | [facility] | [address] | [place] [address] | | | SERVICES, CORE | [address] | | | + + + + + HEPARIN, EITHER STANDARD / LMW, BLOOD (03/23/2017 2:00 AM PDT) + +-------+ + + + | Component | Value | Ref Range | Performed | Pathologist | | | | | At | Signature | + +-------+ + + + | HEPARIN, | 0.35 | U/mL | [facility] | | | STD LMW | | | LABORATORY | | | | | | SERVICES, | | | | | | CORE | | + +-------+ + + + + + | Specimen | + + | Blood | + + + + + | Narrative | Performed At | + + + | LVAD/Advanced Heart Failure Heparin Protocol Heparin level 6 | [facility] | | hrs after every heparin rate change; If heparin level within target | LABORATORY | | range for 2 consecutive results, recheck every AM. Heparin, Either | SERVICES, CORE | | STD/LMW - Therapeutic Ranges: Heparin, Unfractionated: 0.35 - | | | 0.70 U/mL Enoxaparin, LMWH: 0.70 - 1.20 U/mL | | | Dalteparin, LMWH: 0.70 - 1.20 U/mL Tinzaparin, | | | LMWH: Therapeutic range not established. | | | Preliminary | | | studies suggest range | | | similar to | | | dalteparin. Clinical | | | correlation | | | required. Heparin levels may be unreliable for: | | | Total bilirubin | | | >28.8 mg/dL | | | Triglycerides | | | >690 mg/dL or | | | Moderate to Gross Hemolysis | | + + + + + + + + | Performing | Address | City/State/Zipcode | Phone Number | | Organization | | | | + + + + + | [facility] | [address] | [place] [address] | | | SERVICES, ИРИНА | [address] | | | + + + + + CAPILLARY BLOOD GLUCOSE (NO CHG), POC (03/23/2017 12:10 AM PDT) + +---------+ + + + | Component | Value | Ref Range | Performed | Pathologist | | | | | At | Signature | + +---------+ + + + | BLOOD | 146 (H) | 70 - 99 mg/dL | [facility] | | | GLUCOSE, | | | [facility] | | | POC | | | [facility] | | | | | | OF CARE | | | | | | TESTS | | + +---------+ + + + + + | Specimen | + + | | + + + + + + + | Performing | Address | City/State/Zipcode | Phone Number | | Organization | | | | + + + + + | [facility] | [address] | [place], [place] | | | [facility] | [facility] | [address] | | | TESTS | | | | + + + + + CAPILLARY BLOOD GLUCOSE (NO CHG), POC (03/22/2017 11:07 PM PDT) + +---------+ + + + | Component | Value | Ref Range | Performed | Pathologist | | | | | At | Signature | + +---------+ + + + | BLOOD | 148 (H) | 70 - 99 mg/dL | [facility] | | | GLUCOSE, | | | [facility] | | | POC | | | [facility] | | | | | | OF CARE | | | | | | TESTS | | + +---------+ + + + + + | Specimen | + + | | + + + + + + + | Performing | Address | City/State/Zipcode | Phone Number | | Organization | | | | + + + + + | [facility] | [address] | [place], [place] | | | [facility] | [address] | [address] | | | TESTS | | | | + + + + + CAPILLARY BLOOD GLUCOSE (NO CHG), POC (03/22/2017 9:55 PM PDT) + +---------+ + + + | Component | Value | Ref Range | Performed | Pathologist | | | | | At | Signature | + +---------+ + + + | BLOOD | 132 (H) | 70 - 99 mg/dL | [facility] | | | GLUCOSE, | | | [facility] | | | POC | | | [facility] | | | | | | OF CARE | | | | | | TESTS | | + +---------+ + + + + + | Specimen | + + | | + + + + + + + | Performing | Address | City/State/Zipcode | Phone Number | | Organization | | | | + + + + + | [facility] | [address] | [place], [place] | | | [facility] | [address] | [address] | | | TESTS | | | | + + + + + CAPILLARY BLOOD GLUCOSE (NO CHG), POC (03/22/2017 8:17 PM PDT) + +---------+ + + + | Component | Value | Ref Range | Performed | Pathologist | | | | | At | Signature | + +---------+ + + + | BLOOD | 141 (H) | 70 - 99 mg/dL | [facility] | | | GLUCOSE, | | | [facility] | | | POC | | | [facility] | | | | | | OF CARE | | | | | | TESTS | | + +---------+ + + + + + | Specimen | + + | | + + + + + + + | Performing | Address | City/State/Zipcode | Phone Number | | Organization | | | | + + + + + | [facility] | [address] | [place], [place] | | | [facility] | [address] | [address] | | | TESTS | | | | + + + + + CAPILLARY BLOOD GLUCOSE (NO CHG), POC (03/22/2017 6:52 PM PDT) + +---------+ + + + | Component | Value | Ref Range | Performed | Pathologist | | | | | At | Signature | + +---------+ + + + | BLOOD | 144 (H) | 70 - 99 mg/dL | [facility] | | | GLUCOSE, | | | [facility] | | | POC | | | [facility] | | | | | | OF CARE | | | | | | TESTS | | + +---------+ + + + + + | Specimen | + + | | + + + + + + + | Performing | Address | City/State/Zipcode | Phone Number | | Organization | | | | + + + + + | [facility] | [address] | [place], [place] | | | [facility] | [address] | [address] | | | TESTS | | | | + + + + + CAPILLARY BLOOD GLUCOSE (NO CHG), POC (03/22/2017 5:46 PM PDT) + +---------+ + + + | Component | Value | Ref Range | Performed | Pathologist | | | | | At | Signature | + +---------+ + + + | BLOOD | 151 (H) | 70 - 99 mg/dL | [facility] - | | | GLUCOSE, | | | [facility] | | | POC | | | [facility] | | | | | | OF CARE | | | | | | TESTS | | + +---------+ + + + + + | Specimen | + + | | + + + + + + + | Performing | Address | City/State/Zipcode | Phone Number | | Organization | | | | + + + + + | [facility] | [address] | [place], [place] | | | [facility] | [address] | [address] | | | TESTS | | | | + + + + + POTASSIUM, PLASMA (03/22/2017 5:33 PM PDT) + +---------+ + + + | Component | Value | Ref Range | Performed | Pathologist | | | | | At | Signature | + +---------+ + + + | POTASSIUM, | 3.5 | 3.4 - 5.0 | [facility] | | | PLASMA | | mmol/L | LABORATORY | | | (LAB) | | | SERVICES, | | | | | | CORE | | + +---------+ + + + | POTASSIUM | No Hemo | | [facility] | | | CMNT | | | LABORATORY | | | | | | SERVICES, | | | | | | CORE | | + +---------+ + + + + + | Specimen | + + | Blood | + + + + + + + | Performing | Address | City/State/Zipcode | Phone Number | | Organization | | | | + + + + + | [facility] | [address] | [place] [address] | | | [facility]TOINE | [address] | | | + + + + + CAPILLARY BLOOD GLUCOSE (NO CHG), POC (03/22/2017 4:06 PM PDT) + +---------+ + + + | Component | Value | Ref Range | Performed | Pathologist | | | | | At | Signature | + +---------+ + + + | BLOOD | 113 (H) | 70 - 99 mg/dL | [facility] - | | | GLUCOSE, | | | [facility] | | | POC | | | [facility] | | | | | | OF CARE | | | | | | TESTS | | + +---------+ + + + + + | Specimen | + + | | + + + + + + + | Performing | Address | City/State/Zipcode | Phone Number | | Organization | | | | + + + + + | [facility] | [address] | [place], [place] | | | [facility] | [address] | [address] | | | TESTS | | | | + + + + + CAPILLARY BLOOD GLUCOSE (NO CHG), POC (03/22/2017 3:12 PM PDT) + +---------+ + + + | Component | Value | Ref Range | Performed | Pathologist | | | | | At | Signature | + +---------+ + + + | BLOOD | 155 (H) | 70 - 99 mg/dL | [facility] - | | | GLUCOSE, | | | [facility] | | | POC | | | [facility] | | | | | | OF CARE | | | | | | TESTS | | + +---------+ + + + + + | Specimen | + + | | + + + + + + + | Performing | Address | City/State/Zipcode | Phone Number | | Organization | | | | + + + + + | [facility] | [address] | [place], [place] | | | [facility] [place] | [address] | [address] | | | TESTS | | | | + + + + + CAPILLARY BLOOD GLUCOSE (NO CHG), POC (03/22/2017 2:03 PM PDT) + +---------+ + + + | Component | Value | Ref Range | Performed | Pathologist | | | | | At | Signature | + +---------+ + + + | BLOOD | 152 (H) | 70 - 99 mg/dL | [facility] - | | | GLUCOSE, | | | [facility] | | | POC | | | [place] | | | | | | OF CARE | | | | | | TESTS | | + +---------+ + + + + + | Specimen | + + | | + + + + + + + | Performing | Address | City/State/Zipcode | Phone Number | | Organization | | | | + + + + + | [facility] | [address] | [place], [place] | | | [facility] | [facility] | [address] | | | TESTS | | | | + + + + + CAPILLARY BLOOD GLUCOSE (NO CHG), POC (03/22/2017 1:00 PM PDT) + +---------+ + + + | Component | Value | Ref Range | Performed | Pathologist | | | | | At | Signature | + +---------+ + + + | BLOOD | 171 (H) | 70 - 99 mg/dL | [facility] - | | | GLUCOSE, | | | [facility] | | | POC | | | [facility] | | | | | | OF CARE | | | | | | TESTS | | + +---------+ + + + + + | Specimen | + + | | + + + + + + + | Performing | Address | City/State/Zipcode | Phone Number | | Organization | | | | + + + + + | [facility] | [address] | [place], [place] | | | [facility] | [address] | [address] | | | TESTS | | | | + + + + + CAPILLARY BLOOD GLUCOSE (NO CHG), POC (03/22/2017 11:54 AM PDT) + +---------+ + + + | Component | Value | Ref Range | Performed | Pathologist | | | | | At | Signature | + +---------+ + + + | BLOOD | 142 (H) | 70 - 99 mg/dL | [facility] - | | | GLUCOSE, | | | [facility] | | | POC | | | [facility] | | | | | | OF CARE | | | | | | TESTS | | + +---------+ + + + + + | Specimen | + + | | + + + + + + + | Performing | Address | City/State/Zipcode | Phone Number | | Organization | | | | + + + + + | [facility] | [address] | [place], [place] | | | [facility] [place] | [address] | [address] | | | TESTS | | | | + + + + + POTASSIUM, PLASMA (03/22/2017 11:09 AM PDT) + +---------+ + + + | Component | Value | Ref Range | Performed | Pathologist | | | | | At | Signature | + +---------+ + + + | POTASSIUM, | 3.4 | 3.4 - 5.0 | [facility] | | | PLASMA | | mmol/L | LABORATORY | | | (LAB) | | | SERVICES, | | | | | | CORE | | + +---------+ + + + | POTASSIUM | No Hemo | | [facility] | | | CMNT | | | LABORATORY | | | | | | SERVICES, | | | | | | CORE | | + +---------+ + + + + + | Specimen | + + | Blood | + + + + + + + | Performing | Address | City/State/Zipcode | Phone Number | | Organization | | | | + + + + + | [facility] | [address] | [place] [address] | | | SERVICES, CORE | [address] | | | + + + + + CAPILLARY BLOOD GLUCOSE (NO CHG), POC (03/22/2017 10:58 AM PDT) + +---------+ + + + | Component | Value | Ref Range | Performed | Pathologist | | | | | At | Signature | + +---------+ + + + | BLOOD | 129 (H) | 70 - 99 mg/dL | [facility] - | | | GLUCOSE, | | | [facility] | | | POC | | | [facility] | | | | | | OF CARE | | | | | | TESTS | | + +---------+ + + + + + | Specimen | + + | | + + + + + + + | Performing | Address | City/State/Zipcode | Phone Number | | Organization | | | | + + + + + | [facility] | [address] | [place], [place] | | | [facility] | [address] | [address] | | | TESTS | | | | + + + + + CAPILLARY BLOOD GLUCOSE (NO CHG), POC (03/22/2017 9:49 AM PDT) + +---------+ + + + | Component | Value | Ref Range | Performed | Pathologist | | | | | At | Signature | + +---------+ + + + | BLOOD | 104 (H) | 70 - 99 mg/dL | [facility] - | | | GLUCOSE, | | | [facility] | | | POC | | | [facility] | | | | | | OF CARE | | | | | | TESTS | | + +---------+ + + + + + | Specimen | + + | | + + + + + + + | Performing | Address | City/State/Zipcode | Phone Number | | Organization | | | | + + + + + | [facility] | [address] | [place], [place] | | | [facility] | [address] | [address] | | | TESTS | | | | + + + + + CAPILLARY BLOOD GLUCOSE (NO CHG), POC (03/22/2017 8:21 AM PDT) + +---------+ + + + | Component | Value | Ref Range | Performed | Pathologist | | | | | At | Signature | + +---------+ + + + | BLOOD | 119 (H) | 70 - 99 mg/dL | [facility] - | | | GLUCOSE, | | | [facility] | | | POC | | | [facility] | | | | | | OF CARE | | | | | | TESTS | | + +---------+ + + + + + | Specimen | + + | | + + + + + + + | Performing | Address | City/State/Zipcode | Phone Number | | Organization | | | | + + + + + | [facility] | [address] | [place], [place] | | | [facility] [place] | [facility] | [address] | | | TESTS | | | | + + + + + CAPILLARY BLOOD GLUCOSE (NO CHG), POC (03/22/2017 7:26 AM PDT) + +---------+ + + + | Component | Value | Ref Range | Performed | Pathologist | | | | | At | Signature | + +---------+ + + + | BLOOD | 121 (H) | 70 - 99 mg/dL | [facility] - | | | GLUCOSE, | | | [facility] | | | POC | | | [facility] | | | | | | OF CARE | | | | | | TESTS | | + +---------+ + + + + + | Specimen | + + | | + + + + + + + | Performing | Address | City/State/Zipcode | Phone Number | | Organization | | | | + + + + + | [facility] | [address] | [place], [place] | | | [facility] [place] | [address] | [address] | | | TESTS | | | | + + + + + CAPILLARY BLOOD GLUCOSE (NO CHG), POC (03/22/2017 6:06 AM PDT) + +---------+ + + + | Component | Value | Ref Range | Performed | Pathologist | | | | | At | Signature | + +---------+ + + + | BLOOD | 160 (H) | 70 - 99 mg/dL | [facility] - | | | GLUCOSE, | | | [facility] | | | POC | | | [facility] | | | | | | OF CARE | | | | | | TESTS | | + +---------+ + + + + + | Specimen | + + | | + + + + + + + | Performing | Address | City/State/Zipcode | Phone Number | | Organization | | | | + + + + + | [facility] | [address] | [place], [place] | | | [facility] | [address] | [address] | | | TESTS | | | | + + + + + CAPILLARY BLOOD GLUCOSE (NO CHG), POC (03/22/2017 4:30 AM PDT) + +---------+ + + + | Component | Value | Ref Range | Performed | Pathologist | | | | | At | Signature | + +---------+ + + + | BLOOD | 117 (H) | 70 - 99 mg/dL | [facility] - | | | GLUCOSE, | | | [facility] | | | POC | | | [facility] | | | | | | OF CARE | | | | | | TESTS | | + +---------+ + + + + + | Specimen | + + | | + + + + + + + | Performing | Address | City/State/Zipcode | Phone Number | | Organization | | | | + + + + + | [facility] | [address] | [place], [place] | | | [facility] | [facility] | [address] | | | TESTS | | | | + + + + + ANTIBODY SCREEN (03/22/2017 4:20 AM PDT) + + + + + + | Component | Value | Ref Range | Performed | Pathologist | | | | | At | Signature | + + + + + + | Antibody | Negative | | [facility] | | | Screen | | | LABORATORY | | | | | | SERVICES, | | | | | | TRANSFUSION | | | | | | MEDICINE | | + + + + + + + + | Specimen | + + | Blood | + + + + + + + | Performing | Address | City/State/Zipcode | Phone Number | | Organization | | | | + + + + + | [facility] | [address] | [place] [address] | | | SERVICES, | [address] | | | | TRANSFUSION MEDICINE | | | | + + + + + ABO & RH TYPE (03/22/2017 4:20 AM PDT) + + + + + + | Component | Value | Ref Range | Performed | Pathologist | | | | | At | Signature | + + + + + + | ABO Group | O | | [facility] | | | | | | LABORATORY | | | | | | SERVICES, | | | | | | TRANSFUSION | | | | | | MEDICINE | | + + + + + + | Rh Type | Positive | | [facility] | | | | | | LABORATORY | | | | | | SERVICES, | | | | | | TRANSFUSION | | | | | | MEDICINE | | + + + + + + + + | Specimen | + + | Blood | + + + + + + + | Performing | Address | City/State/Zipcode | Phone Number | | Organization | | | | + + + + + | [facility] | [address] | [place] [address] | | | SERVICES, | [address] | | | | TRANSFUSION MEDICINE | | | | + + + + + PRODUCT - RED CELLS LEUKOREDUCED (03/22/2017 4:00 AM PDT) + + + + + + | Component | Value | Ref Range | Performed | Pathologist | | | | | At | Signature | + + + + + + | PRODUCT | -1 RED BLOOD CELL | | [facility] | | | DESCRIPTION | ADENINE-SALINE ADDED | | LABORATORY | | | | LEUKOCYTE | | SERVICES, | | | | | | TRANSFUSION | | | | | | MEDICINE | | + + + + + + | PRODUCT | [id number] | | [facility] | | | UNIT # | | | LABORATORY | | | | | | SERVICES, | | | | | | TRANSFUSION | | | | | | MEDICINE | | + + + + + + | UNIT ABO | O | | [facility] | | | | | | LABORATORY | | | | | | SERVICES, | | | | | | TRANSFUSION | | | | | | MEDICINE | | + + + + + + | UNIT RH | POS | | [facility] | | | | | | LABORATORY | | | | | | SERVICES, | | | | | | TRANSFUSION | | | | | | MEDICINE | | + + + + + + | STATUS OF | Presumed Transfused | | [facility] | | | UNIT | | | LABORATORY | | | | | | SERVICES, | | | | | | TRANSFUSION | | | | | | MEDICINE | | + + + + + + | EXPIRATION | [id number] | | [facility] | | | DATE | | | LABORATORY | | | | | | SERVICES, | | | | | | TRANSFUSION | | | | | | MEDICINE | | + + + + + + | BLOOD TYPE | [id number] | | [facility] | | | BARCODE | | | LABORATORY | | | | | | SERVICES, | | | | | | TRANSFUSION | | | | | | MEDICINE | | + + + + + + | BLOOD | [id number] | | [facility] | | | PRODUCT | | | LABORATORY | | | CODE | | | SERVICES, | | | | | | TRANSFUSION | | | | | | MEDICINE | | + + + + + + + + | Specimen | + + | | + + + + + + + | Performing | Address | City/State/Zipcode | Phone Number | | Organization | | | | + + + + + | [facility] | [address] | [place] [address] | | | SERVICES, | [address] | | | | TRANSFUSION MEDICINE | | | | + + + + + MANUAL DIFFERENTIAL (03/22/2017 3:15 AM PDT) + + + + + + | Component | Value | Ref Range | Performed | Pathologist | | | | | At | Signature | + + + + + + | NEUTROPHIL | 85.1 (H) | 50.0 - 70.0 % | [facility] | | | % | | | LABORATORY | | | | | | SERVICES, | | | | | | CORE | | + + + + + + | LYMPHOCYTE | 8.8 (L) | 18.0 - 42.0 % | [facility] | | | % | | | LABORATORY | | | | | | SERVICES, | | | | | | CORE | | + + + + + + | MONOCYTE % | 3.5 | 3.5 - 9.0 % | [facility] | | | | | | LABORATORY | | | | | | SERVICES, | | | | | | CORE | | + + + + + + | EOSINOPHIL | 0.0 (L) | 1.0 - 3.0 % | [facility] | | | % | | | LABORATORY | | | | | | SERVICES, | | | | | | CORE | | + + + + + + | BASOPHIL % | 0.0 | 0.0 - 2.0 % | [facility] | | | | | | LABORATORY | | | | | | SERVICES, | | | | | | CORE | | + + + + + + | IG% | 2.6 (H)Comment: Immature | 0.0 - 0.6 % | [facility] | | | | Granulocytes (IG) | | LABORATORY | | | | include metamyelocytes, | | SERVICES, | | | | myelocytes and | | CORE | | | | promyelocytes. Bands are | | | | | | not included in the IG | | | | | | count. Bands are | | | | | | included in the | | | | | | neutrophil count. | | | | + + + + + + | NEUTROPHIL | 9.07 (H) | 1.80 - 7.70 | [facility] | | | # | | K/cu mm | LABORATORY | | | | | | SERVICES, | | | | | | CORE | | + + + + + + | LYMPHOCYTE | 0.94 (L) | 1.00 - 4.80 | [facility] | | | # | | K/cu mm | LABORATORY | | | | | | SERVICES, | | | | | | CORE | | + + + + + + | MONOCYTE # | 0.37 | 0.10 - 0.90 | [facility] | | | | | K/cu mm | LABORATORY | | | | | | SERVICES, | | | | | | CORE | | + + + + + + | EOSINOPHIL | 0.00 | 0.00 - 0.50 | [facility] | | | # | | K/cu mm | LABORATORY | | | | | | SERVICES, | | | | | | CORE | | + + + + + + | BASOPHIL # | 0.00 | 0.00 - 0.10 | [facility] | | | | | K/cu mm | LABORATORY | | | | | | SERVICES, | | | | | | CORE | | + + + + + + | IG# | 0.28 (H) | 0.00 - 0.03 | [facility] | | | | | K/cu mm | LABORATORY | | | | | | SERVICES, | | | | | | CORE | | + + + + + + + + | Specimen | + + | Blood | + + + + + | Narrative | Performed At | + + + | Immature Granulocytes (IG) include metamyelocytes, myelocytes | [facility] | | and promyelocytes. Bands are not included in the IG count. Bands | LABORATORY | | are included in the neutrophil count. | SERVICES, CORE | + + + + + + + + | Performing | Address | City/State/Zipcode | Phone Number | | Organization | | | | + + + + + | [facility] | [address] | [place] [address] | | | SERVICES, CORE | [address] | | | + + + + + CBC AND AUTO DIFF (03/22/2017 3:15 AM PDT) + + + + + + | Component | Value | Ref Range | Performed | Pathologist | | | | | At | Signature | + + + + + + | WHITE CELL | 10.66 | 3.50 - 10.80 | [facility] | | | COUNT | | K/cu mm | LABORATORY | | | | | | SERVICES, | | | | | | CORE | | + + + + + + | RED CELL | 2.20 (L) | 4.50 - 6.00 | [facility] | | | COUNT | | M/cu mm | LABORATORY | | | | | | SERVICES, | | | | | | CORE | | + + + + + + | HEMOGLOBIN | 7.0 (L) | 13.5 - 17.5 | [facility] | | | | | g/dL | LABORATORY | | | | | | SERVICES, | | | | | | CORE | | + + + + + + | HEMATOCRIT | 21.8 (L) | 41.0 - 53.0 % | [facility] | | | | | | LABORATORY | | | | | | SERVICES, | | | | | | CORE | | + + + + + + | MCV | 99.1 (H) | 80.0 - 96.0 fL | [facility] | | | | | | LABORATORY | | | | | | SERVICES, | | | | | | CORE | | + + + + + + | MCHC | 32.1 | 33.0 - 35.5 | [facility] | | | | | g/dL | LABORATORY | | | | | | SERVICES, | | | | | | CORE | | + + + + + + | RDW SD | 50.9 (H) | 35.1 - 46.3 fL | [facility] | | | | | | LABORATORY | | | | | | SERVICES, | | | | | | CORE | | + + + + + + | PLATELET | 175 | 150 - 400 K/cu | [facility] | | | COUNT | | mm | LABORATORY | | | | | | SERVICES, | | | | | | CORE | | + + + + + + | MPV | 11.1 | 9.7 - 12.3 fL | [facility] | | | | | | LABORATORY | | | | | | SERVICES, | | | | | | CORE | | + + + + + + | NRBC% | 1.2 (H) | 0.0 - 0.3 % | [facility] | | | | | | LABORATORY | | | | | | SERVICES, | | | | | | CORE | | + + + + + + | NRBC# | 0.13 (H) | 0.00 - 0.02 | [facility] | | | | | K/cu mm | LABORATORY | | | | | | SERVICES, | | | | | | CORE | | + + + + + + + + | Specimen | + + | Blood | + + + + + + + | Performing | Address | City/State/Zipcode | Phone Number | | Organization | | | | + + + + + | [facility] | [address] | [place] [address] | | | SERVICES, CORE | [address] | | | + + + + + HEPARIN, EITHER STANDARD / LMW, BLOOD (03/22/2017 3:15 AM PDT) + +-------+ + + + | Component | Value | Ref Range | Performed | Pathologist | | | | | At | Signature | + +-------+ + + + | HEPARIN, | 0.43 | U/mL | [facility] | | | STD LMW | | | LABORATORY | | | | | | SERVICES, | | | | | | CORE | | + +-------+ + + + + + | Specimen | + + | Blood | + + + + + | Narrative | Performed At | + + + | LVAD/Advanced Heart Failure Heparin Protocol Heparin level 6 | [facility] | | hrs after every heparin rate change; If heparin level within target | LABORATORY | | range for 2 consecutive results, recheck every AM. Heparin, Either | [facility], CORE | | STD/LMW - Therapeutic Ranges: Heparin, Unfractionated: 0.35 - | | | 0.70 U/mL Enoxaparin, LMWH: 0.70 - 1.20 U/mL | | | Dalteparin, LMWH: 0.70 - 1.20 U/mL Tinzaparin, | | | LMWH: Therapeutic range not established. | | | Preliminary | | | studies suggest range | | | similar to | | | dalteparin. Clinical | | | correlation | | | required. Heparin levels may be unreliable for: | | | Total bilirubin | | | >28.8 mg/dL | | | Triglycerides | | | >690 mg/dL or | | | Moderate to Gross Hemolysis | | + + + + + + + + | Performing | Address | City/State/Zipcode | Phone Number | | Organization | | | | + + + + + | [facility] | [address] | [place], [place] [address] | | | SERVICES, CORE | [address] | | | + + + + + INR (03/22/2017 3:15 AM PDT) + +-------+ + + + | Component | Value | Ref Range | Performed | Pathologist | | | | | At | Signature | + +-------+ + + + | INR | 1.15 | 0.90 - 1.20 INR | [facility] | | | | | | LABORATORY | | | | | | SERVICES, | | | | | | CORE | | + +-------+ + + + + + | Specimen | + + | Blood | + + + + + | Narrative | Performed At | + + + | LVAD/Advanced Heart Failure Heparin Protocol Heparin level 6 | [facility] | | hrs after every heparin rate change; If heparin level within target | LABORATORY | | range for 2 consecutive results, recheck every AM. INR Therapeutic | SERVICES, CORE | | ranges for full anticoagulation: INR for Venous | | | Thromboembolism (2.0 - 3.0) INR INR for most | | | patients with mech. valves (2.5 - 3.5) INR | | + + + + + + + + | Performing | Address | City/State/Zipcode | Phone Number | | Organization | | | | + + + + + | [facility] | [address] | [place] [address] | | | SERVICES, CORE | [address] | | | + + + + + MAGNESIUM, PLASMA (03/22/2017 3:15 AM PDT) + +---------+ + + + | Component | Value | Ref Range | Performed | Pathologist | | | | | At | Signature | + +---------+ + + + | MAGNESIUM,P | 2.7 (H) | 1.8 - 2.5 mg/dL | [facility] | | | LASMA | | | LABORATORY | | | | | | SERVICES, | | | | | | CORE | | + +---------+ + + + + + | Specimen | + + | Blood | + + + + + + + | Performing | Address | City/State/Zipcode | Phone Number | | Organization | | | | + + + + + | [facility] | [address] | [place] [address] | | | SERVICES, CORE | [address] | | | + + + + + RENAL FUNCTION SET (NA,K,CL,CO2,BUN,CREAT,GLUC,CA,PHOS,ALB ) (03/22/2017 3:15 AM PDT) + + + + + + | Component | Value | Ref Range | Performed | Pathologist | | | | | At | Signature | + + + + + + | GLUCOSE, | 126 (H) | 70 - 99 mg/dL | [facility] | | | PLASMA | | | LABORATORY | | | (LAB) | | | SERVICES, | | | | | | CORE | | + + + + + + | BUN, PLASMA | 47 (H) | 6 - 20 mg/dL | [facility] | | | (LAB) | | | LABORATORY | | | | | | SERVICES, | | | | | | CORE | | + + + + + + | CREATININE | 1.50 (H) | 0.70 - 1.30 | [facility] | | | PLASMA | | mg/dL | LABORATORY | | | (LAB) | | | SERVICES, | | | | | | CORE | | + + + + + + | EGFR | 57 (L) | >60 mL/min | [facility] | | | - | | | LABORATORY | | | SLOVENIAN | | | SERVICES, | | | | | | CORE | | + + + + + + | EGFR NON | 47 (L) | >60 mL/min | [facility] | | | -SOREN | | | LABORATORY | | | RICAN | | | SERVICES, | | | | | | CORE | | + + + + + + | SODIUM, | 149 (H) | 136 - 145 | [facility] | | | PLASMA | | mmol/L | LABORATORY | | | (LAB) | | | SERVICES, | | | | | | CORE | | + + + + + + | POTASSIUM, | 3.5 | 3.4 - 5.0 | [facility] | | | PLASMA | | mmol/L | LABORATORY | | | (LAB) | | | SERVICES, | | | | | | CORE | | + + + + + + | CHLORIDE, | 114 (H) | 97 - 108 mmol/L | [facility] | | | PLASMA | | | LABORATORY | | | (LAB) | | | SERVICES, | | | | | | CORE | | + + + + + + | TOTAL CO2, | 28 | 21 - 32 mmol/L | [facility] | | | PLASMA | | | LABORATORY | | | (LAB) | | | SERVICES, | | | | | | CORE | | + + + + + + | CALCIUM, | 7.9 (L) | 8.6 - 10.2 | [facility] | | | PLASMA | | mg/dL | LABORATORY | | | (LAB) | | | SERVICES, | | | | | | CORE | | + + + + + + | CALCIUM(ALB | 9.6 | 8.6 - 10.2 | [facility] | | | CORRECTED) | | mg/dL | LABORATORY | | | | | | SERVICES, | | | | | | CORE | | + + + + + + | ALBUMIN, | 1.9 (L) | 3.5 - 4.7 g/dL | [facility] | | | PLASMA | | | LABORATORY | | | (LAB) | | | SERVICES, | | | | | | CORE | | + + + + + + | PHOSPHORUS, | 3.4 | 2.4 - 4.7 mg/dL | [facility] | | | PLASMA | | | LABORATORY | | | (LAB) | | | SERVICES, | | | | | | CORE | | + + + + + + | POTASSIUM | No Hemo | | [facility] | | | CMNT | | | LABORATORY | | | | | | SERVICES, | | | | | | CORE | | + + + + + + | ANION GAP | 7 | mmol/L | [facility] | | | | | | LABORATORY | | | | | | SERVICES, | | | | | | CORE | | + + + + + + | ANION | 12 (H) | 4 - 11 mmol/L | [facility] | | | GAP(ALB | | | LABORATORY | | | CORRECTED) | | | SERVICES, | | | | | | CORE | | + + + + + + + + | Specimen | + + | Blood | + + + + + | Narrative | Performed At | + + + | Adult glucose reference range change effective 7-12-17. GFR is | [facility] | | estimated using the MDRD equation recommended by the National Kidney | LABORATORY | | Disease Education Program. Estimated GFR Interpretive Information: | SERVICES, CORE | | <60 mL/min/1.73 sq m Chronic Kidney | | | Disease <15 mL/min/1.73 sq m Kidney | | | Failure Estimated GFR greater that 60 mL/min/1.73 sq m is of limited | | | clinical value. The MDRD equation is not valid in the following | | | situations: - Patients under 18 years of age - Severe malnutrition | | | or obesity - Vegetarian diet - Rapidly changing kidney function | | + + + + + + + + | Performing | Address | City/State/Zipcode | Phone Number | | Organization | | | | + + + + + | [facility] | [address] | [place] [address] | | | ARASH, ИРИНА | [address] | | | + + + + + CAPILLARY BLOOD GLUCOSE (NO CHG), POC (03/22/2017 3:14 AM PDT) + +---------+ + + + | Component | Value | Ref Range | Performed | Pathologist | | | | | At | Signature | + +---------+ + + + | BLOOD | 134 (H) | 70 - 99 mg/dL | [facility] | | | GLUCOSE, | | | [facility] | | | POC | | | [facility] | | | | | | OF CARE | | | | | | TESTS | | + +---------+ + + + + + | Specimen | + + | | + + + + + + + | Performing | Address | City/State/Zipcode | Phone Number | | Organization | | | | + + + + + | [facility] | [address] | [place], [place] | | | JULIANN SILVA [facility] [place] | [facility] | [address] | | | TESTS | | | | + + + + + CAPILLARY BLOOD GLUCOSE (NO CHG), POC (03/22/2017 2:02 AM PDT) + +---------+ + + + | Component | Value | Ref Range | Performed | Pathologist | | | | | At | Signature | + +---------+ + + + | BLOOD | 136 (H) | 70 - 99 mg/dL | [facility] | | | GLUCOSE, | | | [facility] | | | POC | | | [facility] | | | | | | OF CARE | | | | | | TESTS | | + +---------+ + + + + + | Specimen | + + | | + + + + + + + | Performing | Address | City/State/Zipcode | Phone Number | | Organization | | | | + + + + + | [facility] | [address] | [place], [place] | | | [facility] | [address] | [address] | | | TESTS | | | | + + + + + CAPILLARY BLOOD GLUCOSE (NO CHG), POC (03/22/2017 1:07 AM PDT) + +---------+ + + + | Component | Value | Ref Range | Performed | Pathologist | | | | | At | Signature | + +---------+ + + + | BLOOD | 124 (H) | 70 - 99 mg/dL | [facility] - | | | GLUCOSE, | | | [facility] | | | POC | | | [facility] | | | | | | OF CARE | | | | | | TESTS | | + +---------+ + + + + + | Specimen | + + | | + + + + + + + | Performing | Address | City/State/Zipcode | Phone Number | | Organization | | | | + + + + + | [facility] | [address] | [place], [place] | | | [facility] | [facility] | [address] | | | TESTS | | | | + + + + + CAPILLARY BLOOD GLUCOSE (NO CHG), POC (03/21/2017 11:29 PM PDT) + +---------+ + + + | Component | Value | Ref Range | Performed | Pathologist | | | | | At | Signature | + +---------+ + + + | BLOOD | 138 (H) | 70 - 99 mg/dL | [facility] - | | | GLUCOSE, | | | [facility] | | | POC | | | [facility] | | | | | | OF CARE | | | | | | TESTS | | + +---------+ + + + + + | Specimen | + + | | + + + + + + + | Performing | Address | City/State/Zipcode | Phone Number | | Organization | | | | + + + + + | [facility] | [address] | [place], [place] | | | JULIANN SLIVA [facility] [place] | [facility] | [address] | | | TESTS | | | | + + + + + CAPILLARY BLOOD GLUCOSE (NO CHG), POC (03/21/2017 10:22 PM PDT) + +---------+ + + + | Component | Value | Ref Range | Performed | Pathologist | | | | | At | Signature | + +---------+ + + + | BLOOD | 127 (H) | 70 - 99 mg/dL | [facility] - | | | GLUCOSE, | | | [facility] | | | POC | | | [facility] | | | | | | OF CARE | | | | | | TESTS | | + +---------+ + + + + + | Specimen | + + | | + + + + + + + | Performing | Address | City/State/Zipcode | Phone Number | | Organization | | | | + + + + + | [facility] | [address] | [place], [place] | | | [facility] | [address] | [address] | | | TESTS | | | | + + + + + CAPILLARY BLOOD GLUCOSE (NO CHG), POC (03/21/2017 8:57 PM PDT) + +---------+ + + + | Component | Value | Ref Range | Performed | Pathologist | | | | | At | Signature | + +---------+ + + + | BLOOD | 176 (H) | 70 - 99 mg/dL | [facility] - | | | GLUCOSE, | | | [facility] | | | POC | | | [facility] | | | | | | OF CARE | | | | | | TESTS | | + +---------+ + + + + + | Specimen | + + | | + + + + + + + | Performing | Address | City/State/Zipcode | Phone Number | | Organization | | | | + + + + + | [facility] | [address] | [place], [place] | | | [facility] | [facility] | [address] | | | TESTS | | | | + + + + + CAPILLARY BLOOD GLUCOSE (NO CHG), POC (03/21/2017 6:57 PM PDT) + +---------+ + + + | Component | Value | Ref Range | Performed | Pathologist | | | | | At | Signature | + +---------+ + + + | BLOOD | 107 (H) | 70 - 99 mg/dL | [facility] | | | GLUCOSE, | | | [facility] | | | POC | | | [facility] | | | | | | OF CARE | | | | | | TESTS | | + +---------+ + + + + + | Specimen | + + | | + + + + + + + | Performing | Address | City/State/Zipcode | Phone Number | | Organization | | | | + + + + + | [facility] | [address] | [place], [place] | | | J[facility] S[facility] [place] | [address] | [address] | | | TESTS | | | | + + + + + CAPILLARY BLOOD GLUCOSE (NO CHG), POC (03/21/2017 5:58 PM PDT) + +---------+ + + + | Component | Value | Ref Range | Performed | Pathologist | | | | | At | Signature | + +---------+ + + + | BLOOD | 113 (H) | 70 - 99 mg/dL | [facility] - | | | GLUCOSE, | | | [facility] | | | POC | | | [facility] | | | | | | OF CARE | | | | | | TESTS | | + +---------+ + + + + + | Specimen | + + | | + + + + + + + | Performing | Address | City/State/Zipcode | Phone Number | | Organization | | | | + + + + + | [facility] | [address] | [place], [place] | | | [facility] | [address] | [address] | | | TESTS | | | | + + + + + CAPILLARY BLOOD GLUCOSE (NO CHG), POC (03/21/2017 4:55 PM PDT) + +---------+ + + + | Component | Value | Ref Range | Performed | Pathologist | | | | | At | Signature | + +---------+ + + + | BLOOD | 142 (H) | 70 - 99 mg/dL | [facility] | | | GLUCOSE, | | | [facility] | | | POC | | | [facility] | | | | | | OF CARE | | | | | | TESTS | | + +---------+ + + + + + | Specimen | + + | | + + + + + + + | Performing | Address | City/State/Zipcode | Phone Number | | Organization | | | | + + + + + | [facility] | [address] | [place], [place] | | | [facility] | [address] | [address] | | | TESTS | | | | + + + + + RENAL FUNCTION SET (NA,K,CL,CO2,BUN,CREAT,GLUC,CA,PHOS,ALB ) (03/21/2017 4:35 PM PDT) + + + + + + | Component | Value | Ref Range | Performed | Pathologist | | | | | At | Signature | + + + + + + | GLUCOSE, | 128 (H) | 70 - 99 mg/dL | [facility] | | | PLASMA | | | LABORATORY | | | (LAB) | | | SERVICES, | | | | | | CORE | | + + + + + + | BUN, PLASMA | 47 (H) | 6 - 20 mg/dL | [facility] | | | (LAB) | | | LABORATORY | | | | | | SERVICES, | | | | | | CORE | | + + + + + + | CREATININE | 1.44 (H) | 0.70 - 1.30 | [facility] | | | PLASMA | | mg/dL | LABORATORY | | | (LAB) | | | SERVICES, | | | | | | CORE | | + + + + + + | EGFR | 60 (L) | >60 mL/min | [facility] | | | - | | | LABORATORY | | | SLOVENIAN | | | SERVICES, | | | | | | CORE | | + + + + + + | EGFR NON | 50 (L) | >60 mL/min | [facility] | | | -SOREN | | | LABORATORY | | | RICAN | | | SERVICES, | | | | | | CORE | | + + + + + + | SODIUM, | 150 (H) | 136 - 145 | [facility] | | | PLASMA | | mmol/L | LABORATORY | | | (LAB) | | | SERVICES, | | | | | | CORE | | + + + + + + | POTASSIUM, | 4.0 | 3.4 - 5.0 | [facility] | | | PLASMA | | mmol/L | LABORATORY | | | (LAB) | | | SERVICES, | | | | | | CORE | | + + + + + + | CHLORIDE, | 117 (H) | 97 - 108 mmol/L | [facility] | | | PLASMA | | | LABORATORY | | | (LAB) | | | SERVICES, | | | | | | CORE | | + + + + + + | TOTAL CO2, | 27 | 21 - 32 mmol/L | [facility] | | | PLASMA | | | LABORATORY | | | (LAB) | | | SERVICES, | | | | | | CORE | | + + + + + + | CALCIUM, | 7.9 (L) | 8.6 - 10.2 | [facility] | | | PLASMA | | mg/dL | LABORATORY | | | (LAB) | | | SERVICES, | | | | | | CORE | | + + + + + + | CALCIUM(ALB | 9.7 | 8.6 - 10.2 | [facility] | | | CORRECTED) | | mg/dL | LABORATORY | | | | | | SERVICES, | | | | | | CORE | | + + + + + + | ALBUMIN, | 1.8 (L) | 3.5 - 4.7 g/dL | [facility] | | | PLASMA | | | LABORATORY | | | (LAB) | | | SERVICES, | | | | | | CORE | | + + + + + + | PHOSPHORUS, | 2.7 | 2.4 - 4.7 mg/dL | [facility] | | | PLASMA | | | LABORATORY | | | (LAB) | | | SERVICES, | | | | | | CORE | | + + + + + + | POTASSIUM | No Hemo | | [facility] | | | CMNT | | | LABORATORY | | | | | | SERVICES, | | | | | | CORE | | + + + + + + | ANION GAP | 6 | mmol/L | [facility] | | | | | | LABORATORY | | | | | | SERVICES, | | | | | | CORE | | + + + + + + | ANION | 11 | 4 - 11 mmol/L | [facility] | | | GAP(ALB | | | LABORATORY | | | CORRECTED) | | | SERVICES, | | | | | | CORE | | + + + + + + + + | Specimen | + + | Blood | + + + + + | Narrative | Performed At | + + + | Adult glucose reference range change effective 7-12-17. GFR is | [facility] | | estimated using the MDRD equation recommended by the National Kidney | LABORATORY | | Disease Education Program. Estimated GFR Interpretive Information: | SERVICES, CORE | | <60 mL/min/1.73 sq m Chronic Kidney | | | Disease <15 mL/min/1.73 sq m Kidney | | | Failure Estimated GFR greater that 60 mL/min/1.73 sq m is of limited | | | clinical value. The MDRD equation is not valid in the following | | | situations: - Patients under 18 years of age - Severe malnutrition | | | or obesity - Vegetarian diet - Rapidly changing kidney function | | + + + + + + + + | Performing | Address | City/State/Zipcode | Phone Number | | Organization | | | | + + + + + | [facility] | [address] | [place] [address] | | | SERVICES, ИРИНА | [address] | | | + + + + + CAPILLARY BLOOD GLUCOSE (NO CHG), POC (03/21/2017 4:02 PM PDT) + +---------+ + + + | Component | Value | Ref Range | Performed | Pathologist | | | | | At | Signature | + +---------+ + + + | BLOOD | 130 (H) | 70 - 99 mg/dL | [facility] - | | | GLUCOSE, | | | [facility] | | | POC | | | [facility] | | | | | | OF CARE | | | | | | TESTS | | + +---------+ + + + + + | Specimen | + + | | + + + + + + + | Performing | Address | City/State/Zipcode | Phone Number | | Organization | | | | + + + + + | [facility] | [address] | [place], [place] | | | JULIANN SILVA OF [place] | [facility] | [address] | | | TESTS | | | | + + + + + CAPILLARY BLOOD GLUCOSE (NO CHG), POC (03/21/2017 2:53 PM PDT) + +---------+ + + + | Component | Value | Ref Range | Performed | Pathologist | | | | | At | Signature | + +---------+ + + + | BLOOD | 144 (H) | 70 - 99 mg/dL | [facility] - | | | GLUCOSE, | | | [facility] | | | POC | | | [facility] | | | | | | OF CARE | | | | | | TESTS | | + +---------+ + + + + + | Specimen | + + | | + + + + + + + | Performing | Address | City/State/Zipcode | Phone Number | | Organization | | | | + + + + + | [facility] | [address] | [place], [place] | | | [facility] | [address] | [address] | | | TESTS | | | | + + + + + CAPILLARY BLOOD GLUCOSE (NO CHG), POC (03/21/2017 1:46 PM PDT) + +---------+ + + + | Component | Value | Ref Range | Performed | Pathologist | | | | | At | Signature | + +---------+ + + + | BLOOD | 142 (H) | 70 - 99 mg/dL | [facility] - | | | GLUCOSE, | | | [facility] | | | POC | | | [facility] | | | | | | OF CARE | | | | | | TESTS | | + +---------+ + + + + + | Specimen | + + | | + + + + + + + | Performing | Address | City/State/Zipcode | Phone Number | | Organization | | | | + + + + + | [facility] | [address] | [place], [place] | | | J[facility] S[facility] [place] | [address] | [address] | | | TESTS | | | | + + + + + PROCEDURE NOTE (03/21/2017 1:00 PM PDT) + + + | Narrative | Performed At | + + + | Venice Matta RN 03/21/2017 1:00 PM Midline Insertion | | | Documentation Note Today's date: 03/21/17 Start Time: At | | | 1230, prior to the beginning of the procedure, the team paused to | | | verify the patient's identity, the procedure to be performed and the | | | correct side/site. The patient was positioned | | | appropriately. Any safety precautions were addressed. Patient | | | Location (Unit/Room#): 12k Indication for Midline: access | | | Procedure Details: Masks were worn by all members in the room | | | where the procedure was performed. Prior to initiating the | | | procedure, the practitioner thoroughly washed their hands and donned | | | sterile gloves. The procedure was performed using sterile | | | barrier precautions. An ultrasound was used for pre-procedure | | | identification of the patient's vascular anatomy. Venipuncture | | | was performed under direct ultrasound guidance. The arm was | | | prepped and draped in the procedural sterile fashion and the sterile | | | field was maintained at all times. The insertion site was | | | prepped with Guero cloth and Chloraprep. Anesthesia was obtained | | | with 1 mL of buffered 1% Lidocaine. Midline Catheter | | | Insertion: The R brachial vein was cannulated with dark red, | | | non-pulsatile blood return. A 18g 10cm PowerGlide catheter was | | | placed on the 1 attempt. Midline lot number [id number]; there was + | | | blood return. The catheter was flushed with 20 mL of Normal | | | Saline, an antimicrobial disc was placed at the insertion site and a | | | catheter securement device was utilized. Complications:none | | | Placed by:Daquan Matta RN | | + + + CAPILLARY BLOOD GLUCOSE (NO CHG), POC (03/21/2017 12:50 PM PDT) + +---------+ + + + | Component | Value | Ref Range | Performed | Pathologist | | | | | At | Signature | + +---------+ + + + | BLOOD | 148 (H) | 70 - 99 mg/dL | [facility] | | | GLUCOSE, | | | [facility] | | | POC | | | [facility] | | | | | | OF CARE | | | | | | TESTS | | + +---------+ + + + + + | Specimen | + + | | + + + + + + + | Performing | Address | City/State/Zipcode | Phone Number | | Organization | | | | + + + + + | [facility] | [address] | [place], [place] | | | [facility] | [facility] | [address] | | | TESTS | | | | + + + + + CAPILLARY BLOOD GLUCOSE (NO CHG), POC (03/21/2017 11:42 AM PDT) + +---------+ + + + | Component | Value | Ref Range | Performed | Pathologist | | | | | At | Signature | + +---------+ + + + | BLOOD | 104 (H) | 70 - 99 mg/dL | [facility] - | | | GLUCOSE, | | | [facility] | | | POC | | | [facility] | | | | | | OF CARE | | | | | | TESTS | | + +---------+ + + + + + | Specimen | + + | | + + + + + + + | Performing | Address | City/State/Zipcode | Phone Number | | Organization | | | | + + + + + | [facility] | [address] | [place], [place] | | | [facility] | [address] | [address] | | | TESTS | | | | + + + + + CO-OXIMETER PANEL, BLOOD (03/21/2017 11:12 AM PDT) + + + + + + | Component | Value | Ref Range | Performed | Pathologist | | | | | At | Signature | + + + + + + | TOTAL | 8.5 (L) | 13.5 - 17.5 | [facility] | | | HEMOGLOBIN | | g/dL | LABORATORY | | | | | | SERVICES, | | | | | | CORE | | + + + + + + | OXYHEMOGLOB | 46.9 (L) | 94.0 - 100.0 % | [facility] | | | IN | | | LABORATORY | | | | | | SERVICES, | | | | | | CORE | | + + + + + + | CARBOXYHEMO | <1.0 | <1.6 % | [facility] | | | GLOBIN | | | LABORATORY | | | | | | SERVICES, | | | | | | CORE | | + + + + + + | METHEMOGLOB | <1.0 | % | [facility] | | | IN | | | LABORATORY | | | | | | SERVICES, | | | | | | CORE | | + + + + + + | OXYGEN SAT, | 47.6 (L) | 92.0 - 98.0 % | [facility] | | | SATISH | | | LABORATORY | | | | | | SERVICES, | | | | | | CORE | | + + + + + + | DEOXYHEMOGL | 51.6 | % | [facility] | | | OBIN | | | LABORATORY | | | | | | SERVICES, | | | | | | CORE | | + + + + + + + + | Specimen | + + | Blood | + + + + + | Narrative | Performed At | + + + | Carboxyhemoglobin ranges | [facility] | | Nonsmoker: <1.5% Smokers (1-2 | LABORATORY | | packs/day): 4-5% Smokers (>2 packs/day): 8-9% | SERVICES, CORE | | Methemoglobin Reference Range: 0-18 years: Not | | | Available >18 years: <2% of total hemoglobin | | + + + + + + + + | Performing | Address | City/State/Zipcode | Phone Number | | Organization | | | | + + + + + | [facility] | [address] | [place] [address] | | | SERVICES, CORE | [address] | | | + + + + + X-RAY CHEST 1 VIEW (03/21/2017 10:52 AM PDT) + + | Specimen | + + | | + + + + + | Narrative | Performed At | + + + | STUDY: CHEST 1 VIEW 03/21/17 10:30:51 HISTORY: Edema versus plug | [facility] | | COMPARISON: 1 day ago FINDINGS: Support devices unchanged. | RADIOLOGY VOICE | | Cardiomediastinal silhouette unchanged. Left lung remains clear. Right | RECOGNITION | | upper lobe infiltrative density is slightly worse. CONCLUSION: | | | Slight interval worsening appearance of the right upper lobe without | | | volume loss. I have personally reviewed the images and, if | | | necessary, edited the report. I agree with the report as now | | | presented. | | + + + + + | Procedure Note | + + | Service Account, Radiant Res In Interface - 03/21/2017 11:32 AM PDT STUDY: CHEST 1 | | VIEW 03/21/17 10:30:51 HISTORY: Edema versus plugCOMPARISON: 1 day agoFINDINGS: Support | | devices unchanged. Cardiomediastinal silhouette unchanged. Left lung remains clear. | | Right upper lobe infiltrative density is slightly worse.CONCLUSION: Slight interval | | worsening appearance of the right upper lobe without volume loss.I have personally | | reviewed the images and, if necessary, edited the report. I agree with the report as | | now presented. | | | |CONCLUSION: Slight interval worsening appearance of the right upper lobe without volume los s. | | | | | |I have personally reviewed the images and, if necessary, edited the report. I agree with t he report as now presented. | + + + +---------+ + + | Performing | Address | City/State/Zipcode | Phone Number | | Organization | | | | + +---------+ + + | [facility] | | | | | VOICE RECOGNITION | | | | + +---------+ + + CAPILLARY BLOOD GLUCOSE (NO CHG), POC (03/21/2017 10:37 AM PDT) + +---------+ + + + | Component | Value | Ref Range | Performed | Pathologist | | | | | At | Signature | + +---------+ + + + | BLOOD | 163 (H) | 70 - 99 mg/dL | [facility] | | | GLUCOSE, | | | [facility] | | | POC | | | [facility] | | | | | | [facility] CARE | | | | | | TESTS | | + +---------+ + + + + + | Specimen | + + | | + + + + + + + | Performing | Address | City/State/Zipcode | Phone Number | | Organization | | | | + + + + + | [facility] | [address] | [place], [place] | | | [facility] | [address] | [phone] | | | TESTS | | | | + + + + + INR (03/21/2017 10:26 AM PDT) + +-------+ + + + | Component | Value | Ref Range | Performed | Pathologist | | | | | At | Signature | + +-------+ + + + | INR | 1.19 | 0.90 - 1.20 INR | [facility] | | | | | | [facility] | | | | | | SERVICES, | | | | | | CORE | | + +-------+ + + + + + | Specimen | + + | Blood | + + + + + | Narrative | Performed At | + + + | INR Therapeutic ranges for full anticoagulation: INR for | [facility] | | Venous Thromboembolism (2.0 - 3.0) INR INR | LABORATORY | | for most patients with mech. valves (2.5 - 3.5) INR | [facility] | + + + + + + + + | Performing | Address | City/State/Zipcode | Phone Number | | Organization | | | | + + + + + | [facility] | [address] | [place] [address] | | | [facility] | [address] | | | + + + + + CAPILLARY BLOOD GLUCOSE (NO CHG), POC (03/21/2017 9:43 AM PDT) + +---------+ + + + | Component | Value | Ref Range | Performed | Pathologist | | | | | At | Signature | + +---------+ + + + | BLOOD | 180 (H) | 70 - 99 mg/dL | [facility] | | | GLUCOSE, | | | [facility] | | | POC | | | [facility] | | | | | | OF CARE | | | | | | TESTS | | + +---------+ + + + + + | Specimen | + + | | + + + + + + + | Performing | Address | City/State/Zipcode | Phone Number | | Organization | | | | + + + + + | [facility] | [address] | [place], [place] | | | [place] | [address] | [phone] | | | TESTS | | | | + + + + + CAPILLARY BLOOD GLUCOSE (NO CHG), POC (03/21/2017 8:12 AM PDT) + +---------+ + + + | Component | Value | Ref Range | Performed | Pathologist | | | | | At | Signature | + +---------+ + + + | BLOOD | 154 (H) | 70 - 99 mg/dL | [facility] | | | GLUCOSE, | | | [facility] | | | POC | | | [facility] | | | | | | OF CARE | | | | | | TESTS | | + +---------+ + + + + + | Specimen | + + | | + + + + + + + | Performing | Address | City/State/Zipcode | Phone Number | | Organization | | | | + + + + + | [facility] | [address] | [place], [place] | | | [facility] OF [place] | [facility] | [address] | | | TESTS | | | | + + + + + CAPILLARY BLOOD GLUCOSE (NO CHG), POC (03/21/2017 6:44 AM PDT) + +---------+ + + + | Component | Value | Ref Range | Performed | Pathologist | | | | | At | Signature | + +---------+ + + + | BLOOD | 129 (H) | 70 - 99 mg/dL | [facility] | | | GLUCOSE, | | | [place] | | | POC | | | [facility] | | | | | | OF CARE | | | | | | TESTS | | + +---------+ + + + + + | Specimen | + + | | + + + + + + + | Performing | Address | City/State/Zipcode | Phone Number | | Organization | | | | + + + + + | [facility] | [address] | [place], [place] | | | [facility] | [address] | [address] | | | TESTS | | | | + + + + + CAPILLARY BLOOD GLUCOSE (NO CHG), POC (03/21/2017 5:37 AM PDT) + +---------+ + + + | Component | Value | Ref Range | Performed | Pathologist | | | | | At | Signature | + +---------+ + + + | BLOOD | 126 (H) | 70 - 99 mg/dL | [facility] | | | GLUCOSE, | | | [place] | | | POC | | | [facility] | | | | | | OF CARE | | | | | | TESTS | | + +---------+ + + + + + | Specimen | + + | | + + + + + + + | Performing | Address | City/State/Zipcode | Phone Number | | Organization | | | | + + + + + | [facility] | [address] | [place], [place] | | | [facility] | [address] | [address] | | | TESTS | | | | + + + + + CBC AND AUTO DIFF (03/21/2017 5:34 AM PDT) + + + + + + | Component | Value | Ref Range | Performed | Pathologist | | | | | At | Signature | + + + + + + | WHITE CELL | 13.36 (H) | 3.50 - 10.80 | [facility] | | | COUNT | | K/cu mm | LABORATORY | | | | | | SERVICES, | | | | | | CORE | | + + + + + + | RED CELL | 2.37 (L) | 4.50 - 6.00 | [facility] | | | COUNT | | M/cu mm | LABORATORY | | | | | | SERVICES, | | | | | | CORE | | + + + + + + | HEMOGLOBIN | 7.4 (L) | 13.5 - 17.5 | [facility] | | | | | g/dL | LABORATORY | | | | | | SERVICES, | | | | | | CORE | | + + + + + + | HEMATOCRIT | 23.5 (L) | 41.0 - 53.0 % | [facility] | | | | | | LABORATORY | | | | | | SERVICES, | | | | | | CORE | | + + + + + + | MCV | 99.2 (H) | 80.0 - 96.0 fL | [facility] | | | | | | LABORATORY | | | | | | SERVICES, | | | | | | CORE | | + + + + + + | MCHC | 31.5 | 33.0 - 35.5 | [facility] | | | | | g/dL | LABORATORY | | | | | | SERVICES, | | | | | | CORE | | + + + + + + | RDW SD | 51.5 (H) | 35.1 - 46.3 fL | [facility] | | | | | | LABORATORY | | | | | | SERVICES, | | | | | | CORE | | + + + + + + | PLATELET | 137 (L) | 150 - 400 K/cu | [facility] | | | COUNT | | mm | LABORATORY | | | | | | SERVICES, | | | | | | CORE | | + + + + + + | MPV | 10.8 | 9.7 - 12.3 fL | [facility] | | | | | | LABORATORY | | | | | | SERVICES, | | | | | | CORE | | + + + + + + | NRBC% | 0.7 (H) | 0.0 - 0.3 % | [facility] | | | | | | LABORATORY | | | | | | SERVICES, | | | | | | CORE | | + + + + + + | NRBC# | 0.09 (H) | 0.00 - 0.02 | [facility] | | | | | K/cu mm | LABORATORY | | | | | | SERVICES, | | | | | | CORE | | + + + + + + | NEUTROPHIL | 79.2 (H) | 50.0 - 70.0 % | [facility] | | | % | | | LABORATORY | | | | | | SERVICES, | | | | | | CORE | | + + + + + + | LYMPHOCYTE | 8.8 (L) | 18.0 - 42.0 % | [facility] | | | % | | | LABORATORY | | | | | | SERVICES, | | | | | | CORE | | + + + + + + | MONOCYTE % | 8.5 | 3.5 - 9.0 % | [facility] | | | | | | LABORATORY | | | | | | SERVICES, | | | | | | CORE | | + + + + + + | EOS % | 0.1 (L) | 1.0 - 3.0 % | [facility] | | | | | | LABORATORY | | | | | | SERVICES, | | | | | | CORE | | + + + + + + | BASO % | 0.1 | 0.0 - 2.0 % | [facility] | | | | | | LABORATORY | | | | | | SERVICES, | | | | | | CORE | | + + + + + + | IG% | 3.3 (H)Comment: Immature | 0.0 - 0.6 % | [facility] | | | | Granulocytes (IG) | | LABORATORY | | | | include metamyelocytes, | | SERVICES, | | | | myelocytes and | | CORE | | | | promyelocytes. Bands | | | | | | are not included in the | | | | | | IG count. Bands are | | | | | | included in the | | | | | | neutrophil count. | | | | + + + + + + | NEUTROPHIL | 10.56 (H) | 1.80 - 7.70 | [facility] | | | # | | K/cu mm | LABORATORY | | | | | | SERVICES, | | | | | | CORE | | + + + + + + | LYMPHOCYTE | 1.18 | 1.00 - 4.80 | [facility] | | | # | | K/cu mm | LABORATORY | | | | | | SERVICES, | | | | | | CORE | | + + + + + + | MONOCYTE # | 1.14 (H) | 0.10 - 0.90 | [facility] | | | | | K/cu mm | LABORATORY | | | | | | SERVICES, | | | | | | CORE | | + + + + + + | EOS # | 0.02 | 0.00 - 0.50 | [facility] | | | | | K/cu mm | LABORATORY | | | | | | SERVICES, | | | | | | CORE | | + + + + + + | BASO # | 0.02 | 0.00 - 0.10 | [facility] | | | | | K/cu mm | LABORATORY | | | | | | SERVICES, | | | | | | CORE | | + + + + + + | IG# | 0.44 (H) | 0.00 - 0.03 | [facility] | | | | | K/cu mm | LABORATORY | | | | | | SERVICES, | | | | | | CORE | | + + + + + + + + | Specimen | + + | Blood | + + + + + | Narrative | Performed At | + + + | Immature Granulocytes (IG) include metamyelocytes, myelocytes | [facility] | | and promyelocytes. Bands are not included in the IG count. Bands | LABORATORY | | are included in the neutrophil count. | SERVICES, CORE | + + + + + + + + | Performing | Address | City/State/Zipcode | Phone Number | | Organization | | | | + + + + + | [facility] | [address] | [place] [address] | | | SERVICES, CORE | [address] | | | + + + + + HEPARIN, EITHER STANDARD / LMW, BLOOD (03/21/2017 5:34 AM PDT) + +-------+ + + + | Component | Value | Ref Range | Performed | Pathologist | | | | | At | Signature | + +-------+ + + + | HEPARIN, | 0.55 | U/mL | [facility] | | | STD LMW | | | LABORATORY | | | | | | SERVICES, | | | | | | CORE | | + +-------+ + + + + + | Specimen | + + | Blood | + + + + + | Narrative | Performed At | + + + | LVAD/Advanced Heart Failure Heparin Protocol Heparin level 6 | [facility] | | hrs after every heparin rate change; If heparin level within target | LABORATORY | | range for 2 consecutive results, recheck every AM. Heparin, Either | SERVICES, CORE | | STD/LMW - Therapeutic Ranges: Heparin, Unfractionated: 0.35 - | | | 0.70 U/mL Enoxaparin, LMWH: 0.70 - 1.20 U/mL | | | Dalteparin, LMWH: 0.70 - 1.20 U/mL Tinzaparin, | | | LMWH: Therapeutic range not established. | | | Preliminary | | | studies suggest range | | | similar to | | | dalteparin. Clinical | | | correlation | | | required. Heparin levels may be unreliable for: | | | Total bilirubin | | | >28.8 mg/dL | | | Triglycerides | | | >690 mg/dL or | | | Moderate to Gross Hemolysis | | + + + + + + + + | Performing | Address | City/State/Zipcode | Phone Number | | Organization | | | | + + + + + | [facility] | [address] | [place] [address] | | | ARASH, ИРИНА | [address] | | | + + + + + MAGNESIUM, PLASMA (03/21/2017 5:34 AM PDT) + +---------+ + + + | Component | Value | Ref Range | Performed | Pathologist | | | | | At | Signature | + +---------+ + + + | MAGNESIUM,P | 2.6 (H) | 1.8 - 2.5 mg/dL | [facility] | | | LASMA | | | LABORATORY | | | | | | SERVICES, | | | | | | CORE | | + +---------+ + + + + + | Specimen | + + | Blood | + + + + + + + | Performing | Address | City/State/Zipcode | Phone Number | | Organization | | | | + + + + + | [facility] | [address] | [place] [address] | | | SERVICES, CORE | [address] | | | + + + + + RENAL FUNCTION SET (NA,K,CL,CO2,BUN,CREAT,GLUC,CA,PHOS,ALB ) (03/21/2017 5:34 AM PDT) + +---------+ + + + | Component | Value | Ref Range | Performed | Pathologist | | | | | At | Signature | + +---------+ + + + | GLUCOSE, | 110 (H) | 70 - 99 mg/dL | [facility] | | | PLASMA | | | LABORATORY | | | (LAB) | | | SERVICES, | | | | | | CORE | | + +---------+ + + + | BUN, PLASMA | 40 (H) | 6 - 20 mg/dL | [facility] | | | (LAB) | | | LABORATORY | | | | | | SERVICES, | | | | | | CORE | | + +---------+ + + + | CREATININE | 1.29 | 0.70 - 1.30 | [facility] | | | PLASMA | | mg/dL | LABORATORY | | | (LAB) | | | SERVICES, | | | | | | CORE | | + +---------+ + + + | EGFR | >60 | >60 mL/min | [facility] | | | - | | | LABORATORY | | | SLOVENIAN | | | SERVICES, | | | | | | CORE | | + +---------+ + + + | EGFR NON | 56 (L) | >60 mL/min | [facility] | | | -SOREN | | | LABORATORY | | | RICAN | | | SERVICES, | | | | | | CORE | | + +---------+ + + + | SODIUM, | 150 (H) | 136 - 145 | [facility] | | | PLASMA | | mmol/L | LABORATORY | | | (LAB) | | | SERVICES, | | | | | | CORE | | + +---------+ + + + | POTASSIUM, | 4.1 | 3.4 - 5.0 | [facility] | | | PLASMA | | mmol/L | LABORATORY | | | (LAB) | | | SERVICES, | | | | | | CORE | | + +---------+ + + + | CHLORIDE, | 118 (H) | 97 - 108 mmol/L | [facility] | | | PLASMA | | | LABORATORY | | | (LAB) | | | SERVICES, | | | | | | CORE | | + +---------+ + + + | TOTAL CO2, | 24 | 21 - 32 mmol/L | [facility] | | | PLASMA | | | LABORATORY | | | (LAB) | | | SERVICES, | | | | | | CORE | | + +---------+ + + + | CALCIUM, | 8.3 (L) | 8.6 - 10.2 | [facility] | | | PLASMA | | mg/dL | LABORATORY | | | (LAB) | | | SERVICES, | | | | | | CORE | | + +---------+ + + + | CALCIUM(ALB | 10.0 | 8.6 - 10.2 | [facility] | | | CORRECTED) | | mg/dL | LABORATORY | | | | | | SERVICES, | | | | | | CORE | | + +---------+ + + + | ALBUMIN, | 1.9 (L) | 3.5 - 4.7 g/dL | [facility] | | | PLASMA | | | LABORATORY | | | (LAB) | | | SERVICES, | | | | | | CORE | | + +---------+ + + + | PHOSPHORUS, | 2.4 | 2.4 - 4.7 mg/dL | [facility] | | | PLASMA | | | LABORATORY | | | (LAB) | | | SERVICES, | | | | | | CORE | | + +---------+ + + + | POTASSIUM | No Hemo | | [facility] | | | CMNT | | | LABORATORY | | | | | | SERVICES, | | | | | | CORE | | + +---------+ + + + | ANION GAP | 8 | mmol/L | [facility] | | | | | | LABORATORY | | | | | | SERVICES, | | | | | | CORE | | + +---------+ + + + | ANION | 13 (H) | 4 - 11 mmol/L | [facility] | | | GAP(ALB | | | LABORATORY | | | CORRECTED) | | | SERVICES, | | | | | | CORE | | + +---------+ + + + + + | Specimen | + + | Blood | + + + + + | Narrative | Performed At | + + + | Adult glucose reference range change effective 7--17. GFR is | [facility] | | estimated using the MDRD equation recommended by the National Kidney | LABORATORY | | Disease Education Program. Estimated GFR Interpretive Information: | SERVICES, CORE | | <60 mL/min/1.73 sq m Chronic Kidney | | | Disease <15 mL/min/1.73 sq m Kidney | | | Failure Estimated GFR greater that 60 mL/min/1.73 sq m is of limited | | | clinical value. The MDRD equation is not valid in the following | | | situations: - Patients under 18 years of age - Severe malnutrition | | | or obesity - Vegetarian diet - Rapidly changing kidney function | | + + + + + + + + | Performing | Address | City/State/Zipcode | Phone Number | | Organization | | | | + + + + + | [facility] | [address] | [place] [address] | | | SERVICES, CORE | [address] | | | + + + + + CAPILLARY BLOOD GLUCOSE (NO CHG), POC (03/21/2017 4:08 AM PDT) + +---------+ + + + | Component | Value | Ref Range | Performed | Pathologist | | | | | At | Signature | + +---------+ + + + | BLOOD | 172 (H) | 70 - 99 mg/dL | [facility] | | | GLUCOSE, | | | [facility] | | | POC | | | [facility] | | | | | | OF CARE | | | | | | TESTS | | + +---------+ + + + + + | Specimen | + + | | + + + + + + + | Performing | Address | City/State/Zipcode | Phone Number | | Organization | | | | + + + + + | [facility] | [address] | [place], [place] | | | [facility] | [address] | [address] | | | TESTS | | | | + + + + + CAPILLARY BLOOD GLUCOSE (NO CHG), POC (03/21/2017 3:12 AM PDT) + +---------+ + + + | Component | Value | Ref Range | Performed | Pathologist | | | | | At | Signature | + +---------+ + + + | BLOOD | 174 (H) | 70 - 99 mg/dL | [facility] | | | GLUCOSE, | | | [facility] | | | POC | | | [facility] | | | | | | OF CARE | | | | | | TESTS | | + +---------+ + + + + + | Specimen | + + | | + + + + + + + | Performing | Address | City/State/Zipcode | Phone Number | | Organization | | | | + + + + + | [facility] | [address] | [place], [place] | | | [facility] | [address] | [address] | | | TESTS | | | | + + + + + THROMBELASTOGRAPH, POC (03/21/2017 1:02 AM PDT) + + + + + + | Component | Value | Ref Range | Performed | Pathologist | | | | | At | Signature | + + + + + + | R - | 13.3 (A) | 5 - 10 Minutes | [facility] - | | | CITRATED | | | [facility] | | | | | | [facility] | | | | | | OF CARE | | | | | | TESTS | | + + + + + + | K - | 2.0 | 1 - 3 Minutes | [facility] - | | | CITRATED | | | [facility] | | | | | | [facility] | | | | | | OF CARE | | | | | | TESTS | | + + + + + + | ANGLE - | 71.3 | 53 - 72 Degrees | [facility] - | | | CITRATED | | | [facility] | | | | | | [place], POINT | | | | | | OF CARE | | | | | | TESTS | | + + + + + + | MAXIMUM | 81.6 (A) | 55 - 70 mm | [facility] - | | | AMPLITUDE - | | | [facility] | | | CITRATED | | | [place], POINT | | | | | | OF CARE | | | | | | TESTS | | + + + + + + | LY 30 | 0.3 | 0 - 8 % | [facility] | | | | | | [place] | | | | | | [place], POINT | | | | | | OF CARE | | | | | | TESTS | | + + + + + + | CLOT INDEX | -1.8 | -3 - 3 | [facility] - | | | | | | [facility] | | | | | | [place], POINT | | | | | | OF CARE | | | | | | TESTS | | + + + + + + + + | Specimen | + + | Blood | + + + + + | Impressions | Performed At | + + + | A standard citrated kaolin TEG was performed Prolonged R time | [facility] - | | corresponds to decreased soluble coagulation factors suggesting | [facility], | | HYPOcoagulability. Elevated ALPHA angle corresponds to increased | POINT OF CARE | | rate of fibrin crosslinking suggesting HYPERcoagulability MA is | TESTS | | normal. Normal LY30 corresponds to normal fibrinolysis | | | Overall, TEG suggests hypocoagulability. See Media Tab in Chart | | | Review for TEG tracing Electronically signed on 07/27/2017 at 3:39 | | | PM Rocio Galloway MD | | + + + + + + + + | Performing | Address | City/State/Zipcode | Phone Number | | Organization | | | | + + + + + | [facility] | [address] | [place], [place] | | | [facility] | [address] | [address] | | | TESTS | | | | + + + + + CAPILLARY BLOOD GLUCOSE (NO CHG), POC (03/21/2017 12:51 AM PDT) + +---------+ + + + | Component | Value | Ref Range | Performed | Pathologist | | | | | At | Signature | + +---------+ + + + | BLOOD | 139 (H) | 70 - 99 mg/dL | [facility] - | | | GLUCOSE, | | | [facility] | | | POC | | | [facility] | | | | | | OF CARE | | | | | | TESTS | | + +---------+ + + + + + | Specimen | + + | | + + + + + + + | Performing | Address | City/State/Zipcode | Phone Number | | Organization | | | | + + + + + | [facility] | [address] | [place], [place] | | | [facility] [place] | [address] | [address] | | | TESTS | | | | + + + + + CAPILLARY BLOOD GLUCOSE (NO CHG), POC (03/20/2017 11:57 PM PDT) + +---------+ + + + | Component | Value | Ref Range | Performed | Pathologist | | | | | At | Signature | + +---------+ + + + | BLOOD | 157 (H) | 70 - 99 mg/dL | [facility] - | | | GLUCOSE, | | | [facility] | | | POC | | | [facility]INT | | | | | | OF CARE | | | | | | TESTS | | + +---------+ + + + + + | Specimen | + + | | + + + + + + + | Performing | Address | City/State/Zipcode | Phone Number | | Organization | | | | + + + + + | [facility] | [address] | [place], [place] | | | [facility] | [address] | [address] | | | TESTS | | | | + + + + + POTASSIUM, PLASMA (03/20/2017 11:53 PM PDT) + +---------+ + + + | Component | Value | Ref Range | Performed | Pathologist | | | | | At | Signature | + +---------+ + + + | POTASSIUM, | 4.1 | 3.4 - 5.0 | [facility] | | | PLASMA | | mmol/L | LABORATORY | | | (LAB) | | | SERVICES, | | | | | | CORE | | + +---------+ + + + | POTASSIUM | No Hemo | | [facility] | | | CMNT | | | LABORATORY | | | | | | SERVICES, | | | | | | CORE | | + +---------+ + + + + + | Specimen | + + | Blood | + + + + + + + | Performing | Address | City/State/Zipcode | Phone Number | | Organization | | | | + + + + + | [facility] | [address] | [place] [address] | | | SERVICES, CORE | [address] | | | + + + + + CAPILLARY BLOOD GLUCOSE (NO CHG), POC (03/20/2017 10:57 PM PDT) + +---------+ + + + | Component | Value | Ref Range | Performed | Pathologist | | | | | At | Signature | + +---------+ + + + | BLOOD | 147 (H) | 70 - 99 mg/dL | [facility] - | | | GLUCOSE, | | | [place] | | | POC | | | [facility] | | | | | | OF CARE | | | | | | TESTS | | + +---------+ + + + + + | Specimen | + + | | + + + + + + + | Performing | Address | City/State/Zipcode | Phone Number | | Organization | | | | + + + + + | [facility] | [address] | [place], [place] | | | [facility] | [address] | [address] | | | TESTS | | | | + + + + + CAPILLARY BLOOD GLUCOSE (NO CHG), POC (03/20/2017 9:56 PM PDT) + +---------+ + + + | Component | Value | Ref Range | Performed | Pathologist | | | | | At | Signature | + +---------+ + + + | BLOOD | 148 (H) | 70 - 99 mg/dL | [facility] - | | | GLUCOSE, | | | [place] | | | POC | | | [facility] | | | | | | OF CARE | | | | | | TESTS | | + +---------+ + + + + + | Specimen | + + | | + + + + + + + | Performing | Address | City/State/Zipcode | Phone Number | | Organization | | | | + + + + + | [facility] | [address] | [place], [place] | | | [facility] | [address] | [address] | | | TESTS | | | | + + + + + CAPILLARY BLOOD GLUCOSE (NO CHG), POC (03/20/2017 8:56 PM PDT) + +---------+ + + + | Component | Value | Ref Range | Performed | Pathologist | | | | | At | Signature | + +---------+ + + + | BLOOD | 142 (H) | 70 - 99 mg/dL | [facility] - | | | GLUCOSE, | | | [place] | | | POC | | | [facility] | | | | | | OF CARE | | | | | | TESTS | | + +---------+ + + + + + | Specimen | + + | | + + + + + + + | Performing | Address | City/State/Zipcode | Phone Number | | Organization | | | | + + + + + | [facility] | [address] | [place], [place] | | | [facility] | [address] | [address] | | | TESTS | | | | + + + + + CAPILLARY BLOOD GLUCOSE (NO CHG), POC (03/20/2017 7:58 PM PDT) + +---------+ + + + | Component | Value | Ref Range | Performed | Pathologist | | | | | At | Signature | + +---------+ + + + | BLOOD | 138 (H) | 70 - 99 mg/dL | [facility] - | | | GLUCOSE, | | | [place] | | | POC | | | [facility] | | | | | | OF CARE | | | | | | TESTS | | + +---------+ + + + + + | Specimen | + + | | + + + + + + + | Performing | Address | City/State/Zipcode | Phone Number | | Organization | | | | + + + + + | [facility] | [address] | [place], [place] | | | [facility] | [address] | [address] | | | TESTS | | | | + + + + + CAPILLARY BLOOD GLUCOSE (NO CHG), POC (03/20/2017 6:55 PM PDT) + +---------+ + + + | Component | Value | Ref Range | Performed | Pathologist | | | | | At | Signature | + +---------+ + + + | BLOOD | 169 (H) | 70 - 99 mg/dL | [facility] - | | | GLUCOSE, | | | [place] | | | POC | | | [facility] | | | | | | OF CARE | | | | | | TESTS | | + +---------+ + + + + + | Specimen | + + | | + + + + + + + | Performing | Address | City/State/Zipcode | Phone Number | | Organization | | | | + + + + + | [facility] | [address] | [place], [place] | | | [facility] | [address] | [address] | | | TESTS | | | | + + + + + CAPILLARY BLOOD GLUCOSE (NO CHG), POC (03/20/2017 5:55 PM PDT) + +---------+ + + + | Component | Value | Ref Range | Performed | Pathologist | | | | | At | Signature | + +---------+ + + + | BLOOD | 147 (H) | 70 - 99 mg/dL | [facility] - | | | GLUCOSE, | | | [place] | | | POC | | | [facility] | | | | | | OF CARE | | | | | | TESTS | | + +---------+ + + + + + | Specimen | + + | | + + + + + + + | Performing | Address | City/State/Zipcode | Phone Number | | Organization | | | | + + + + + | [facility] | [address] | [place], [place] | | | [facility] | [address] | [address] | | | TESTS | | | | + + + + + CAPILLARY BLOOD GLUCOSE (NO CHG), POC (03/20/2017 4:59 PM PDT) + +---------+ + + + | Component | Value | Ref Range | Performed | Pathologist | | | | | At | Signature | + +---------+ + + + | BLOOD | 202 (H) | 70 - 99 mg/dL | [facility] - | | | GLUCOSE, | | | [facility] | | | POC | | | [facility] | | | | | | OF CARE | | | | | | TESTS | | + +---------+ + + + + + | Specimen | + + | | + + + + + + + | Performing | Address | City/State/Zipcode | Phone Number | | Organization | | | | + + + + + | [facility] | [address] | [place], [place] | | | [facility] | [address] | [address] | | | TESTS | | | | + + + + + POTASSIUM, PLASMA (03/20/2017 4:55 PM PDT) + +---------+ + + + | Component | Value | Ref Range | Performed | Pathologist | | | | | At | Signature | + +---------+ + + + | POTASSIUM, | 4.1 | 3.4 - 5.0 | [facility] | | | PLASMA | | mmol/L | LABORATORY | | | (LAB) | | | SERVICES, | | | | | | CORE | | + +---------+ + + + | POTASSIUM | No Hemo | | [facility] | | | CMNT | | | LABORATORY | | | | | | SERVICES, | | | | | | CORE | | + +---------+ + + + + + | Specimen | + + | Blood | + + + + + + + | Performing | Address | City/State/Zipcode | Phone Number | | Organization | | | | + + + + + | [facility] | [phone] | [place] [address] | | | SERVICES, CORE | [address] | | | + + + + + CAPILLARY BLOOD GLUCOSE (NO CHG), POC (03/20/2017 4:00 PM PDT) + +---------+ + + + | Component | Value | Ref Range | Performed | Pathologist | | | | | At | Signature | + +---------+ + + + | BLOOD | 195 (H) | 70 - 99 mg/dL | [facility] | | | GLUCOSE, | | | [facility] | | | POC | | | [place] | | | | | | OF CARE | | | | | | TESTS | | + +---------+ + + + + + | Specimen | + + | | + + + + + + + | Performing | Address | City/State/Zipcode | Phone Number | | Organization | | | | + + + + + | [facility] | [address] | [place], [place] | | | [facility] | [address] | [phone] | | | TESTS | | | | + + + + + CAPILLARY BLOOD GLUCOSE (NO CHG), POC (03/20/2017 3:14 PM PDT) + +---------+ + + + | Component | Value | Ref Range | Performed | Pathologist | | | | | At | Signature | + +---------+ + + + | BLOOD | 165 (H) | 70 - 99 mg/dL | [facility] - | | | GLUCOSE, | | | [facility] | | | POC | | | [facility] | | | | | | OF CARE | | | | | | TESTS | | + +---------+ + + + + + | Specimen | + + | | + + + + + + + | Performing | Address | City/State/Zipcode | Phone Number | | Organization | | | | + + + + + | [facility] | [address] | [place], [place] | | | [facility] | [address] | [address] | | | TESTS | | | | + + + + + HEPARIN, EITHER STANDARD / LMW, BLOOD (03/20/2017 2:08 PM PDT) + +-------+ + + + | Component | Value | Ref Range | Performed | Pathologist | | | | | At | Signature | + +-------+ + + + | HEPARIN, | 0.57 | U/mL | [facility] | | | STD LMW | | | LABORATORY | | | | | | SERVICES, | | | | | | CORE | | + +-------+ + + + + + | Specimen | + + | Blood | + + + + + | Narrative | Performed At | + + + | LVAD/Advanced Heart Failure Heparin Protocol Heparin level 6 | [facility] | | hrs after every heparin rate change; If heparin level within target | LABORATORY | | range for 2 consecutive results, recheck every AM. Heparin, Either | SERVICES, CORE | | STD/LMW - Therapeutic Ranges: Heparin, Unfractionated: 0.35 - | | | 0.70 U/mL Enoxaparin, LMWH: 0.70 - 1.20 U/mL | | | Dalteparin, LMWH: 0.70 - 1.20 U/mL Tinzaparin, | | | LMWH: Therapeutic range not established. | | | Preliminary | | | studies suggest range | | | similar to | | | dalteparin. Clinical | | | correlation | | | required. Heparin levels may be unreliable for: | | | Total bilirubin | | | >28.8 mg/dL | | | Triglycerides | | | >690 mg/dL or | | | Moderate to Gross Hemolysis | | + + + + + + + + | Performing | Address | City/State/Zipcode | Phone Number | | Organization | | | | + + + + + | [facility] | [address] | [place] [address] | | | SERVICES, CORE | [address] | | | + + + + + CAPILLARY BLOOD GLUCOSE (NO CHG), POC (03/20/2017 1:26 PM PDT) + +---------+ + + + | Component | Value | Ref Range | Performed | Pathologist | | | | | At | Signature | + +---------+ + + + | BLOOD | 111 (H) | 70 - 99 mg/dL | [facility] - | | | GLUCOSE, | | | [facility] | | | POC | | | [facility] | | | | | | OF CARE | | | | | | TESTS | | + +---------+ + + + + + | Specimen | + + | | + + + + + + + | Performing | Address | City/State/Zipcode | Phone Number | | Organization | | | | + + + + + | [facility] | [address] | [place], [place] | | | [facility] | [address] | [address] | | | TESTS | | | | + + + + + X-RAY ABD LTD FEEDING TUBE EVAL (03/20/2017 1:18 PM PDT) + + | Specimen | + + | | + + + + + | Narrative | Performed At | + + + | EXAM: Supine frontal view of the abdomen. HISTORY: Study | [facility] | | to evaluate feeding tube position COMPARISON: Chest Xray dated | RADIOLOGY VOICE | | 03/19/2017. FINDINGS AND IMPRESSION: Feeding tube is seen in | RECOGNITION | | the stomach with the tip in the proximal gastric body. [place] [facility] | | | catheter in place. Limited evaluation of the lungs as technique was | | | tailored for feeding tube. I have personally reviewed the | | | images and, if necessary, edited the report. I agree with the | | | report as now presented. | | + + + + + | Procedure Note | + + | Service Account, Kapost Res In Interface - 03/20/2017 2:38 PM PDT EXAM: Supine | | frontal view of the abdomen. HISTORY: Study to evaluate feeding tube | | positionCOMPARISON: Chest Xray dated 03/19/2017.FINDINGS AND IMPRESSION:Feeding tube is | | seen in the stomach with the tip in the proximal gastric body.[place] [facility] catheter in | | place.Limited evaluation of the lungs as technique was tailored for feeding tube.I have | | personally reviewed the images and, if necessary, edited the report. I agree with the | | report as now presented. | | | |Feeding tube is seen in the stomach with the tip in the proximal gastric body. | |[place] [facility] catheter in place. | |Limited evaluation of the lungs as technique was tailored for feeding tube. | | | | | |I have personally reviewed the images and, if necessary, edited the report. I agree with t he report as now presented. | + + + +---------+ + + | Performing | Address | City/State/Zipcode | Phone Number | | Organization | | | | + +---------+ + + | [facility] | | | | | VOICE RECOGNITION | | | | + +---------+ + + CAPILLARY BLOOD GLUCOSE (NO CHG), POC (03/20/2017 12:06 PM PDT) + +---------+ + + + | Component | Value | Ref Range | Performed | Pathologist | | | | | At | Signature | + +---------+ + + + | BLOOD | 136 (H) | 70 - 99 mg/dL | [facility] - | | | GLUCOSE, | | | [facility] | | | POC | | | [facility] | | | | | | OF CARE | | | | | | TESTS | | + +---------+ + + + + + | Specimen | + + | | + + + + + + + | Performing | Address | City/State/Zipcode | Phone Number | | Organization | | | | + + + + + | [facility] | [address] | [place], [place] | | | [facility] | [facility] | [address] | | | TESTS | | | | + + + + + CAPILLARY BLOOD GLUCOSE (NO CHG), POC (03/20/2017 11:03 AM PDT) + +---------+ + + + | Component | Value | Ref Range | Performed | Pathologist | | | | | At | Signature | + +---------+ + + + | BLOOD | 140 (H) | 70 - 99 mg/dL | [facility] - | | | GLUCOSE, | | | [facility] | | | POC | | | [facility] | | | | | | OF CARE | | | | | | TESTS | | + +---------+ + + + + + | Specimen | + + | | + + + + + + + | Performing | Address | City/State/Zipcode | Phone Number | | Organization | | | | + + + + + | [facility] | [address] | [place], [place] | | | [facility] | [address] | [address] | | | TESTS | | | | + + + + + CAPILLARY BLOOD GLUCOSE (NO CHG), POC (03/20/2017 10:23 AM PDT) + +---------+ + + + | Component | Value | Ref Range | Performed | Pathologist | | | | | At | Signature | + +---------+ + + + | BLOOD | 127 (H) | 70 - 99 mg/dL | [facility] - | | | GLUCOSE, | | | [facility] | | | POC | | | [facility] | | | | | | OF CARE | | | | | | TESTS | | + +---------+ + + + + + | Specimen | + + | | + + + + + + + | Performing | Address | City/State/Zipcode | Phone Number | | Organization | | | | + + + + + | [facility] | [address] | [place], [place] | | | [facility] | [facility] | [address] | | | TESTS | | | | + + + + + CAPILLARY BLOOD GLUCOSE (NO CHG), POC (03/20/2017 9:08 AM PDT) + +---------+ + + + | Component | Value | Ref Range | Performed | Pathologist | | | | | At | Signature | + +---------+ + + + | BLOOD | 146 (H) | 70 - 99 mg/dL | [facility] - | | | GLUCOSE, | | | [facility] | | | POC | | | [facility] | | | | | | OF CARE | | | | | | TESTS | | + +---------+ + + + + + | Specimen | + + | | + + + + + + + | Performing | Address | City/State/Zipcode | Phone Number | | Organization | | | | + + + + + | [facility] | [address] | [place], [place] | | | [facility] | [facility] | [address] | | | TESTS | | | | + + + + + CAPILLARY BLOOD GLUCOSE (NO CHG), POC (03/20/2017 8:19 AM PDT) + +---------+ + + + | Component | Value | Ref Range | Performed | Pathologist | | | | | At | Signature | + +---------+ + + + | BLOOD | 147 (H) | 70 - 99 mg/dL | [facility] - | | | GLUCOSE, | | | [facility] | | | POC | | | [facility] | | | | | | OF CARE | | | | | | TESTS | | + +---------+ + + + + + | Specimen | + + | | + + + + + + + | Performing | Address | City/State/Zipcode | Phone Number | | Organization | | | | + + + + + | [facility] | [address] | [place], [place] | | | [facility] [place] | [address] | [address] | | | TESTS | | | | + + + + + HEPARIN, EITHER STANDARD / LMW, BLOOD (03/20/2017 7:00 AM PDT) + +-------+ + + + | Component | Value | Ref Range | Performed | Pathologist | | | | | At | Signature | + +-------+ + + + | HEPARIN, | 0.44 | U/mL | [facility] | | | STD LMW | | | LABORATORY | | | | | | SERVICES, | | | | | | CORE | | + +-------+ + + + + + | Specimen | + + | Blood | + + + + + | Narrative | Performed At | + + + | LVAD/Advanced Heart Failure Heparin Protocol Heparin level 6 | [facility] | | hrs after every heparin rate change; If heparin level within target | LABORATORY | | range for 2 consecutive results, recheck every AM. Heparin, Either | SERVICES, CORE | | STD/LMW - Therapeutic Ranges: Heparin, Unfractionated: 0.35 - | | | 0.70 U/mL Enoxaparin, LMWH: 0.70 - 1.20 U/mL | | | Dalteparin, LMWH: 0.70 - 1.20 U/mL Tinzaparin, | | | LMWH: Therapeutic range not established. | | | Preliminary | | | studies suggest range | | | similar to | | | dalteparin. Clinical | | | correlation | | | required. Heparin levels may be unreliable for: | | | Total bilirubin | | | >28.8 mg/dL | | | Triglycerides | | | >690 mg/dL or | | | Moderate to Gross Hemolysis | | + + + + + + + + | Performing | Address | City/State/Zipcode | Phone Number | | Organization | | | | + + + + + | [facility] | [address] [address] | [place] [address] | | | SERVICES, CORE | [address] | | | + + + + + POTASSIUM, PLASMA (03/20/2017 7:00 AM PDT) + +---------+ + + + | Component | Value | Ref Range | Performed | Pathologist | | | | | At | Signature | + +---------+ + + + | POTASSIUM, | 4.0 | 3.4 - 5.0 | [facility] | | | PLASMA | | mmol/L | LABORATORY | | | (LAB) | | | SERVICES, | | | | | | CORE | | + +---------+ + + + | POTASSIUM | No Hemo | | [facility] | | | CMNT | | | LABORATORY | | | | | | SERVICES, | | | | | | CORE | | + +---------+ + + + + + | Specimen | + + | Blood | + + + + + + + | Performing | Address | City/State/Zipcode | Phone Number | | Organization | | | | + + + + + | [facility] | [address] | [place] [address] | | | SERVICES, CORE | [address] | | | + + + + + CK, PLASMA (03/20/2017 7:00 AM PDT) + + + + + + | Component | Value | Ref Range | Performed | Pathologist | | | | | At | Signature | + + + + + + | CK | 7,261 (H) | 49 - 397 U/L | [facility] | | | | | | LABORATORY | | | | | | ARASH, | | | | | | CORE | | + + + + + + + + | Specimen | + + | Blood | + + + + + + + | Performing | Address | City/State/Zipcode | Phone Number | | Organization | | | | + + + + + | [facility] | [address] | [place] [address] | | | [facility] | [address] | | | + + + + + CAPILLARY BLOOD GLUCOSE (NO CHG), POC (03/20/2017 6:54 AM PDT) + +---------+ + + + | Component | Value | Ref Range | Performed | Pathologist | | | | | At | Signature | + +---------+ + + + | BLOOD | 144 (H) | 70 - 99 mg/dL | [facility] - | | | GLUCOSE, | | | [facility] | | | POC | | | [facility] | | | | | | OF CARE | | | | | | TESTS | | + +---------+ + + + + + | Specimen | + + | | + + + + + + + | Performing | Address | City/State/Zipcode | Phone Number | | Organization | | | | + + + + + | [facility] | [address] | [place], [place] | | | [facility] | [address] | [address] | | | TESTS | | | | + + + + + X-RAY PORTABLE CHEST 1 VIEW (03/20/2017 6:33 AM PDT) + + | Specimen | + + | | + + + + + | Narrative | Performed At | + + + | EXAM: AL CHEST 1 VIEW 03/20/17 04:29:28 HISTORY: ECMO cannula | [facility] | | removal of acute cardiogenic shock due to ST segment elevation | RADIOLOGY VOICE | | myocardial infarction COMPARISON: 03/19/2017 FINDINGS: | RECOGNITION | | Interval removal of ECMO venous catheter. Right IJ pulmonary arterial | | | catheter with tip overlying right pulmonary artery. ETT 4-5 cm above | | | jefferson. Enteric tube seen coursing below the diaphragm with side hole | | | at gastric cardia/GE junction, tip not visualized. Asymmetric ground | | | glass of the right upper lung is slightly worsened from prior. Trace | | | bibasilar atelectasis. Lungs otherwise clear. No pneumothorax. | | | IMPRESSION: Asymmetric right upper lung groundglass, concerning | | | for mitral regurgitation, aspiration, or pneumonia. I have | | | personally reviewed the images and, if necessary, edited the | | | report. I agree with the report as now presented. | | + + + + + | Procedure Note | + + | Service Account, Radiant Res In Interface - 03/20/2017 10:12 AM PDT EXAM: AL CHEST 1 | | VIEW 03/20/17 04:29:28 HISTORY: ECMO cannula removal of acute cardiogenic shock due to | | ST segment elevation myocardial infarctionCOMPARISON: 03/19/2017FINDINGS: Interval | | removal of ECMO venous catheter. Right IJ pulmonary arterial catheter with tip overlying | | right pulmonary artery. ETT 4-5 cm above jefferson. Enteric tube seen coursing below the | | diaphragm with side hole at gastric cardia/GE junction, tip not visualized. Asymmetric | | ground glass of the right upper lung is slightly worsened from prior. Trace bibasilar | | atelectasis. Lungs otherwise clear. No pneumothorax.IMPRESSION: Asymmetric right upper | | lung groundglass, concerning for mitral regurgitation, aspiration, or pneumonia.I have | | personally reviewed the images and, if necessary, edited the report. I agree with the | | report as now presented. | |IMPRESSION: | | | |Asymmetric right upper lung groundglass, concerning for mitral regurgitation, aspiration, o r pneumonia. | | | | | |I have personally reviewed the images and, if necessary, edited the report. I agree with t he report as now presented. | + + + +---------+ + + | Performing | Address | City/State/Zipcode | Phone Number | | Organization | | | | + +---------+ + + | [facility] | | | | | VOICE RECOGNITION | | | | + +---------+ + + CAPILLARY BLOOD GLUCOSE (NO CHG), POC (03/20/2017 4:59 AM PDT) + +---------+ + + + | Component | Value | Ref Range | Performed | Pathologist | | | | | At | Signature | + +---------+ + + + | BLOOD | 157 (H) | 70 - 99 mg/dL | [facility] - | | | GLUCOSE, | | | [facility] | | | POC | | | [facility] | | | | | | OF CARE | | | | | | TESTS | | + +---------+ + + + + + | Specimen | + + | | + + + + + + + | Performing | Address | City/State/Zipcode | Phone Number | | Organization | | | | + + + + + | [facility] | [address] | [place], [place] | | | [facility] | [address] | [phone] | | | TESTS | | | | + + + + + CAPILLARY BLOOD GLUCOSE (NO CHG), POC (03/20/2017 3:57 AM PDT) + +---------+ + + + | Component | Value | Ref Range | Performed | Pathologist | | | | | At | Signature | + +---------+ + + + | BLOOD | 143 (H) | 70 - 99 mg/dL | [facility] - | | | GLUCOSE, | | | [facility] | | | POC | | | [facility] | | | | | | OF CARE | | | | | | TESTS | | + +---------+ + + + + + | Specimen | + + | | + + + + + + + | Performing | Address | City/State/Zipcode | Phone Number | | Organization | | | | + + + + + | [facility] | [address] | [place], [place] | | | [facility] | [address] | [phone] | | | TESTS | | | | + + + + + CAPILLARY BLOOD GLUCOSE (NO CHG), POC (03/20/2017 3:01 AM PDT) + +---------+ + + + | Component | Value | Ref Range | Performed | Pathologist | | | | | At | Signature | + +---------+ + + + | BLOOD | 166 (H) | 70 - 99 mg/dL | [facility] - | | | GLUCOSE, | | | [facility] | | | POC | | | [facility] | | | | | | OF CARE | | | | | | TESTS | | + +---------+ + + + + + | Specimen | + + | | + + + + + + + | Performing | Address | City/State/Zipcode | Phone Number | | Organization | | | | + + + + + | [facility] | [address] | [place], [place] | | | [facility] | [address] | [address] | | | TESTS | | | | + + + + + CAPILLARY BLOOD GLUCOSE (NO CHG), POC (03/20/2017 1:56 AM PDT) + +---------+ + + + | Component | Value | Ref Range | Performed | Pathologist | | | | | At | Signature | + +---------+ + + + | BLOOD | 157 (H) | 70 - 99 mg/dL | [facility] - | | | GLUCOSE, | | | [facility] | | | POC | | | [facility] | | | | | | OF CARE | | | | | | TESTS | | + +---------+ + + + + + | Specimen | + + | | + + + + + + + | Performing | Address | City/State/Zipcode | Phone Number | | Organization | | | | + + + + + | [facility] | [address] | [place], [place] | | | [facility] | [address] | [address] | | | TESTS | | | | + + + + + CBC AND AUTO DIFF (03/20/2017 1:00 AM PDT) + + + + + + | Component | Value | Ref Range | Performed | Pathologist | | | | | At | Signature | + + + + + + | WHITE CELL | 13.05 (H) | 3.50 - 10.80 | [facility] | | | COUNT | | K/cu mm | LABORATORY | | | | | | SERVICES, | | | | | | CORE | | + + + + + + | RED CELL | 2.55 (L) | 4.50 - 6.00 | [facility] | | | COUNT | | M/cu mm | LABORATORY | | | | | | SERVICES, | | | | | | CORE | | + + + + + + | HEMOGLOBIN | 8.2 (L) | 13.5 - 17.5 | [facility] | | | | | g/dL | LABORATORY | | | | | | SERVICES, | | | | | | CORE | | + + + + + + | HEMATOCRIT | 24.9 (L) | 41.0 - 53.0 % | [facility] | | | | | | LABORATORY | | | | | | SERVICES, | | | | | | CORE | | + + + + + + | MCV | 97.6 (H) | 80.0 - 96.0 fL | [facility] | | | | | | LABORATORY | | | | | | SERVICES, | | | | | | CORE | | + + + + + + | MCHC | 32.9 | 33.0 - 35.5 | [facility] | | | | | g/dL | LABORATORY | | | | | | SERVICES, | | | | | | CORE | | + + + + + + | RDW SD | 51.4 (H) | 35.1 - 46.3 fL | [facility] | | | | | | LABORATORY | | | | | | SERVICES, | | | | | | CORE | | + + + + + + | PLATELET | 107 (L) | 150 - 400 K/cu | [facility] | | | COUNT | | mm | LABORATORY | | | | | | SERVICES, | | | | | | CORE | | + + + + + + | MPV | 11.0 | 9.7 - 12.3 fL | [facility] | | | | | | LABORATORY | | | | | | SERVICES, | | | | | | CORE | | + + + + + + | NRBC% | 0.5 (H) | 0.0 - 0.3 % | [facility] | | | | | | LABORATORY | | | | | | SERVICES, | | | | | | CORE | | + + + + + + | NRBC# | 0.06 (H) | 0.00 - 0.02 | [facility] | | | | | K/cu mm | LABORATORY | | | | | | SERVICES, | | | | | | CORE | | + + + + + + | NEUTROPHIL | 78.3 (H) | 50.0 - 70.0 % | [facility] | | | % | | | LABORATORY | | | | | | SERVICES, | | | | | | CORE | | + + + + + + | LYMPHOCYTE | 9.9 (L) | 18.0 - 42.0 % | [facility] | | | % | | | LABORATORY | | | | | | SERVICES, | | | | | | CORE | | + + + + + + | MONOCYTE % | 9.9 (H) | 3.5 - 9.0 % | [facility] | | | | | | LABORATORY | | | | | | SERVICES, | | | | | | CORE | | + + + + + + | EOS % | 0.0 (L) | 1.0 - 3.0 % | [facility] | | | | | | LABORATORY | | | | | | SERVICES, | | | | | | CORE | | + + + + + + | BASO % | 0.2 | 0.0 - 2.0 % | [facility] | | | | | | LABORATORY | | | | | | SERVICES, | | | | | | CORE | | + + + + + + | IG% | 1.7 (H)Comment: Immature | 0.0 - 0.6 % | [facility] | | | | Granulocytes (IG) | | LABORATORY | | | | include metamyelocytes, | | SERVICES, | | | | myelocytes and | | CORE | | | | promyelocytes. Bands | | | | | | are not included in the | | | | | | IG count. Bands are | | | | | | included in the | | | | | | neutrophil count. | | | | + + + + + + | NEUTROPHIL | 10.23 (H) | 1.80 - 7.70 | [facility] | | | # | | K/cu mm | LABORATORY | | | | | | SERVICES, | | | | | | CORE | | + + + + + + | LYMPHOCYTE | 1.29 | 1.00 - 4.80 | [facility] | | | # | | K/cu mm | LABORATORY | | | | | | SERVICES, | | | | | | CORE | | + + + + + + | MONOCYTE # | 1.29 (H) | 0.10 - 0.90 | [facility] | | | | | K/cu mm | LABORATORY | | | | | | SERVICES, | | | | | | CORE | | + + + + + + | EOS # | 0.00 | 0.00 - 0.50 | [facility] | | | | | K/cu mm | LABORATORY | | | | | | SERVICES, | | | | | | CORE | | + + + + + + | BASO # | 0.02 | 0.00 - 0.10 | [facility] | | | | | K/cu mm | LABORATORY | | | | | | SERVICES, | | | | | | CORE | | + + + + + + | IG# | 0.22 (H) | 0.00 - 0.03 | [facility] | | | | | K/cu mm | LABORATORY | | | | | | SERVICES, | | | | | | CORE | | + + + + + + + + | Specimen | + + | Blood | + + + + + | Narrative | Performed At | + + + | Immature Granulocytes (IG) include metamyelocytes, myelocytes | [facility] | | and promyelocytes. Bands are not included in the IG count. Bands | LABORATORY | | are included in the neutrophil count. | SERVICES, CORE | + + + + + + + + | Performing | Address | City/State/Zipcode | Phone Number | | Organization | | | | + + + + + | [facility] | [address] | [place] [address] | | | SERVICES, CORE | [address] | | | + + + + + BLOOD GASES, ARTERIAL - LAB (03/20/2017 1:00 AM PDT) + + + + + + | Component | Value | Ref Range | Performed | Pathologist | | | | | At | Signature | + + + + + + | PAT TEMP | 38 | Degree C | [facility] | | | ARTERIAL | | | LABORATORY | | | | | | SERVICES, | | | | | | CORE | | + + + + + + | FIO2 | 0.55 | | [facility] | | | ARTERIAL | | | LABORATORY | | | | | | SERVICES, | | | | | | CORE | | + + + + + + | PH ARTERIAL | 7.45 (H) | 7.37 - 7.44 | [facility] | | | | | | LABORATORY | | | | | | SERVICES, | | | | | | CORE | | + + + + + + | PCO2 | 39 | 32 - 43 mmHg | [facility] | | | ARTERIAL | | | LABORATORY | | | | | | SERVICES, | | | | | | CORE | | + + + + + + | PO2 | 115 (H) | 72 - 104 mmHg | [facility] | | | ARTERIAL | | | LABORATORY | | | | | | SERVICES, | | | | | | CORE | | + + + + + + | HCO3 | 26 | 21 - 28 mmol/L | [facility] | | | ARTERIAL | | | LABORATORY | | | | | | SERVICES, | | | | | | CORE | | + + + + + + | TOTAL CO2 | 27 | 22 - 28 mmol/L | [facility] | | | ARTERIAL | | | LABORATORY | | | | | | SERVICES, | | | | | | CORE | | + + + + + + | BASE EXCESS | 2.7 | mmol/L | [facility] | | | ARTERIAL | | | LABORATORY | | | | | | SERVICES, | | | | | | CORE | | + + + + + + | O2 SAT, | 98.1 (H) | 92.0 - 98.0 % | [facility] | | | ARTERIAL | | | LABORATORY | | | | | | SERVICES, | | | | | | CORE | | + + + + + + | PAO2/FIO2 | 209 (L) | >300 mmHg | [facility] | | | RATIO | | | LABORATORY | | | | | | SERVICES, | | | | | | CORE | | + + + + + + + + | Specimen | + + | Blood | + + + + + + + | Performing | Address | City/State/Zipcode | Phone Number | | Organization | | | | + + + + + | [facility] | [address] | [place] [address] | | | SERVICES, CORE | [address] | | | + + + + + MAGNESIUM, PLASMA (03/20/2017 1:00 AM PDT) + +---------+ + + + | Component | Value | Ref Range | Performed | Pathologist | | | | | At | Signature | + +---------+ + + + | MAGNESIUM,P | 2.7 (H) | 1.8 - 2.5 mg/dL | [facility] | | | LASMA | | | LABORATORY | | | | | | ARASH, | | | | | | ИР[facility]НА | | + +---------+ + + + + + | Specimen | + + | Blood | + + + + + + + | Performing | Address | City/State/Zipcode | Phone Number | | Organization | | | | + + + + + | [facility] | [address] | [place] [address] | | | ARASH, ИРИНА | [address] | | | + + + + + HEPARIN, EITHER STANDARD / LMW, BLOOD (03/20/2017 1:00 AM PDT) + +-------+ + + + | Component | Value | Ref Range | Performed | Pathologist | | | | | At | Signature | + +-------+ + + + | HEPARIN, | 0.33 | U/mL | [facility] | | | STD LMW | | | LABORATORY | | | | | | SERVICES, | | | | | | CORE | | + +-------+ + + + + + | Specimen | + + | Blood | + + + + + | Narrative | Performed At | + + + | LVAD/Advanced Heart Failure Heparin Protocol Heparin level 6 | [facility] | | hrs after every heparin rate change; If heparin level within target | LABORATORY | | range for 2 consecutive results, recheck every AM. Heparin, Either | SERVICES, CORE | | STD/LMW - Therapeutic Ranges: Heparin, Unfractionated: 0.35 - | | | 0.70 U/mL Enoxaparin, LMWH: 0.70 - 1.20 U/mL | | | Dalteparin, LMWH: 0.70 - 1.20 U/mL Tinzaparin, | | | LMWH: Therapeutic range not established. | | | Preliminary | | | studies suggest range | | | similar to | | | dalteparin. Clinical | | | correlation | | | required. Heparin levels may be unreliable for: | | | Total bilirubin | | | >28.8 mg/dL | | | Triglycerides | | | >690 mg/dL or | | | Moderate to Gross Hemolysis | | + + + + + + + + | Performing | Address | City/State/Zipcode | Phone Number | | Organization | | | | + + + + + | [facility] | [address] | [place] [address] | | | SERVICES, CORE | [address] | | | + + + + + RENAL FUNCTION SET (NA,K,CL,CO2,BUN,CREAT,GLUC,CA,PHOS,ALB ) (03/20/2017 1:00 AM PDT) + + + + + + | Component | Value | Ref Range | Performed | Pathologist | | | | | At | Signature | + + + + + + | GLUCOSE, | 140 (H) | 70 - 99 mg/dL | [facility] | | | PLASMA | | | LABORATORY | | | (LAB) | | | SERVICES, | | | | | | CORE | | + + + + + + | BUN, PLASMA | 43 (H) | 6 - 20 mg/dL | [facility] | | | (LAB) | | | LABORATORY | | | | | | SERVICES, | | | | | | CORE | | + + + + + + | CREATININE | 1.31 (H) | 0.70 - 1.30 | [facility] | | | PLASMA | | mg/dL | LABORATORY | | | (LAB) | | | SERVICES, | | | | | | CORE | | + + + + + + | EGFR | >60 | >60 mL/min | [facility] | | | - | | | LABORATORY | | | SLOVENIAN | | | SERVICES, | | | | | | CORE | | + + + + + + | EGFR NON | 55 (L) | >60 mL/min | [facility] | | | -SOREN | | | LABORATORY | | | RICAN | | | SERVICES, | | | | | | CORE | | + + + + + + | SODIUM, | 146 (H) | 136 - 145 | [facility] | | | PLASMA | | mmol/L | LABORATORY | | | (LAB) | | | SERVICES, | | | | | | CORE | | + + + + + + | POTASSIUM, | 3.8 | 3.4 - 5.0 | [facility] | | | PLASMA | | mmol/L | LABORATORY | | | (LAB) | | | SERVICES, | | | | | | CORE | | + + + + + + | CHLORIDE, | 112 (H) | 97 - 108 mmol/L | [facility] | | | PLASMA | | | LABORATORY | | | (LAB) | | | SERVICES, | | | | | | CORE | | + + + + + + | TOTAL CO2, | 26 | 21 - 32 mmol/L | [facility] | | | PLASMA | | | LABORATORY | | | (LAB) | | | SERVICES, | | | | | | CORE | | + + + + + + | CALCIUM, | 7.8 (L) | 8.6 - 10.2 | [facility] | | | PLASMA | | mg/dL | LABORATORY | | | (LAB) | | | SERVICES, | | | | | | CORE | | + + + + + + | CALCIUM(ALB | 9.5 | 8.6 - 10.2 | [facility] | | | CORRECTED) | | mg/dL | LABORATORY | | | | | | SERVICES, | | | | | | CORE | | + + + + + + | ALBUMIN, | 1.9 (L) | 3.5 - 4.7 g/dL | [facility] | | | PLASMA | | | LABORATORY | | | (LAB) | | | SERVICES, | | | | | | CORE | | + + + + + + | PHOSPHORUS, | 3.7 | 2.4 - 4.7 mg/dL | [facility] | | | PLASMA | | | LABORATORY | | | (LAB) | | | SERVICES, | | | | | | CORE | | + + + + + + | POTASSIUM | No Hemo | | [facility] | | | CMNT | | | LABORATORY | | | | | | SERVICES, | | | | | | CORE | | + + + + + + | ANION GAP | 8 | mmol/L | [facility] | | | | | | LABORATORY | | | | | | SERVICES, | | | | | | CORE | | + + + + + + | ANION | 13 (H) | 4 - 11 mmol/L | [facility] | | | GAP(ALB | | | LABORATORY | | | CORRECTED) | | | SERVICES, | | | | | | CORE | | + + + + + + + + | Specimen | + + | Blood | + + + + + | Narrative | Performed At | + + + | Adult glucose reference range change effective 7-12-17. GFR is | [facility] | | estimated using the MDRD equation recommended by the [employer] | LABORATORY | | Disease Education Program. Estimated GFR Interpretive Information: | SERVICES, CORE | | <60 mL/min/1.73 sq m Chronic Kidney | | | Disease <15 mL/min/1.73 sq m Kidney | | | Failure Estimated GFR greater that 60 mL/min/1.73 sq m is of limited | | | clinical value. The MDRD equation is not valid in the following | | | situations: - Patients under 18 years of age - Severe malnutrition | | | or obesity - Vegetarian diet - Rapidly changing kidney function | | + + + + + + + + | Performing | Address | City/State/Zipcode | Phone Number | | Organization | | | | + + + + + | [facility] | [address] | [place] [address] | | | SERVICES, CORE | [address] | | | + + + + + CAPILLARY BLOOD GLUCOSE (NO CHG), POC (03/20/2017 12:59 AM PDT) + +---------+ + + + | Component | Value | Ref Range | Performed | Pathologist | | | | | At | Signature | + +---------+ + + + | BLOOD | 140 (H) | 70 - 99 mg/dL | [facility] | | | GLUCOSE, | | | [facility] | | | POC | | | [facility] | | | | | | OF CARE | | | | | | TESTS | | + +---------+ + + + + + | Specimen | + + | | + + + + + + + | Performing | Address | City/State/Zipcode | Phone Number | | Organization | | | | + + + + + | [facility] | [address] | [place], [place] | | | [facility] | [facility] | [address] | | | TESTS | | | | + + + + + CAPILLARY BLOOD GLUCOSE (NO CHG), POC (03/20/2017 12:08 AM PDT) + +---------+ + + + | Component | Value | Ref Range | Performed | Pathologist | | | | | At | Signature | + +---------+ + + + | BLOOD | 172 (H) | 70 - 99 mg/dL | [facility] | | | GLUCOSE, | | | [place] | | | POC | | | [facility] | | | | | | OF CARE | | | | | | TESTS | | + +---------+ + + + + + | Specimen | + + | | + + + + + + + | Performing | Address | City/State/Zipcode | Phone Number | | Organization | | | | + + + + + | [facility] | [address] | [place], [place] | | | JUL[facility]ANN S[facility] OF [place] | [address] | [address] | | | TESTS | | | | + + + + + CO-OXIMETER PANEL, BLOOD (03/19/2017 11:18 PM PDT) + + + + + + | Component | Value | Ref Range | Performed | Pathologist | | | | | At | Signature | + + + + + + | TOTAL | 9.2 (L) | 13.5 - 17.5 | [facility] | | | HEMOGLOBIN | | g/dL | LABORATORY | | | | | | SERVICES, | | | | | | CORE | | + + + + + + | OXYHEMOGLOB | 47.3 (L) | 94.0 - 100.0 % | [facility] | | | IN | | | LABORATORY | | | | | | SERVICES, | | | | | | CORE | | + + + + + + | CARBOXYHEMO | <1.0 | <1.6 % | [facility] | | | GLOBIN | | | LABORATORY | | | | | | SERVICES, | | | | | | CORE | | + + + + + + | METHEMOGLOB | <1.0 | % | [facility] | | | IN | | | LABORATORY | | | | | | SERVICES, | | | | | | CORE | | + + + + + + | OXYGEN SAT, | 48.1 (L) | 92.0 - 98.0 % | [facility] | | | SATISH | | | LABORATORY | | | | | | SERVICES, | | | | | | CORE | | + + + + + + | DEOXYHEMOGL | 51.1 | % | [facility] | | | OBIN | | | LABORATORY | | | | | | SERVICES, | | | | | | CORE | | + + + + + + + + | Specimen | + + | Blood | + + + + + | Narrative | Performed At | + + + | Carboxyhemoglobin ranges | [facility] | | Nonsmoker: <1.5% Smokers (1-2 | LABORATORY | | packs/day): 4-5% Smokers (>2 packs/day): 8-9% | SERVICES, CORE | | Methemoglobin Reference Range: 0-18 years: Not | | | Available >18 years: <2% of total hemoglobin | | + + + + + + + + | Performing | Address | City/State/Zipcode | Phone Number | | Organization | | | | + + + + + | [facility] | [address] | [place] [address] | | | ARASH CORE | [address] | | | + + + + + CAPILLARY BLOOD GLUCOSE (NO CHG), POC (03/19/2017 11:02 PM PDT) + +---------+ + + + | Component | Value | Ref Range | Performed | Pathologist | | | | | At | Signature | + +---------+ + + + | BLOOD | 153 (H) | 70 - 99 mg/dL | [facility] | | | GLUCOSE, | | | [facility] | | | POC | | | [place] | | | | | | OF CARE | | | | | | TESTS | | + +---------+ + + + + + | Specimen | + + | | + + + + + + + | Performing | Address | City/State/Zipcode | Phone Number | | Organization | | | | + + + + + | [facility] | [address] | [place], [place] | | | [facility] | [facility] | [address] | | | TESTS | | | | + + + + + CAPILLARY BLOOD GLUCOSE (NO CHG), POC (03/19/2017 10:03 PM PDT) + +---------+ + + + | Component | Value | Ref Range | Performed | Pathologist | | | | | At | Signature | + +---------+ + + + | BLOOD | 143 (H) | 70 - 99 mg/dL | [facility] - | | | GLUCOSE, | | | [facility] | | | POC | | | [facility] | | | | | | OF CARE | | | | | | TESTS | | + +---------+ + + + + + | Specimen | + + | | + + + + + + + | Performing | Address | City/State/Zipcode | Phone Number | | Organization | | | | + + + + + | [facility] | [address] | [place], [place] | | | [facility] OF [facility] | [address] | [address] | | | TESTS | | | | + + + + + C. DIFFICILE TOXIN (03/19/2017 9:12 PM PDT) + + + + + + | Component | Value | Ref Range | Performed | Pathologist | | | | | At | Signature | + + + + + + | C.DIFFICILE | Negative | Negative | [facility] | | | TOXIN | | | LABORATORY | | | | | | SERVICES, | | | | | | CORE | | + + + + + + + + | Specimen | + + | Stool | + + + + + + + | Performing | Address | City/State/Zipcode | Phone Number | | Organization | | | | + + + + + | [facility] | [address] | [place] [address] | | | SERVICES, CORE | [address] | | | + + + + + CAPILLARY BLOOD GLUCOSE (NO CHG), POC (03/19/2017 8:02 PM PDT) + +---------+ + + + | Component | Value | Ref Range | Performed | Pathologist | | | | | At | Signature | + +---------+ + + + | BLOOD | 164 (H) | 70 - 99 mg/dL | [facility] - | | | GLUCOSE, | | | [facility] | | | POC | | | [facility] | | | | | | OF CARE | | | | | | TESTS | | + +---------+ + + + + + | Specimen | + + | | + + + + + + + | Performing | Address | City/State/Zipcode | Phone Number | | Organization | | | | + + + + + | [facility] | [address] | [place], [place] | | | [facility] | [address] | [address] | | | TESTS | | | | + + + + + CBC (HEMOGRAM) ONLY (03/19/2017 7:59 PM PDT) + + + + + + | Component | Value | Ref Range | Performed | Pathologist | | | | | At | Signature | + + + + + + | WHITE CELL | 13.32 (H) | 3.50 - 10.80 | [facility] | | | COUNT | | K/cu mm | LABORATORY | | | | | | SERVICES, | | | | | | CORE | | + + + + + + | RED CELL | 2.62 (L) | 4.50 - 6.00 | [facility] | | | COUNT | | M/cu mm | LABORATORY | | | | | | SERVICES, | | | | | | CORE | | + + + + + + | HEMOGLOBIN | 8.4 (L) | 13.5 - 17.5 | [facility] | | | | | g/dL | LABORATORY | | | | | | SERVICES, | | | | | | CORE | | + + + + + + | HEMATOCRIT | 25.5 (L) | 41.0 - 53.0 % | [facility] | | | | | | LABORATORY | | | | | | SERVICES, | | | | | | CORE | | + + + + + + | MCV | 97.3 (H) | 80.0 - 96.0 fL | [facility] | | | | | | LABORATORY | | | | | | SERVICES, | | | | | | CORE | | + + + + + + | MCHC | 32.9 | 33.0 - 35.5 | [facility] | | | | | g/dL | LABORATORY | | | | | | SERVICES, | | | | | | CORE | | + + + + + + | RDW SD | 51.8 (H) | 35.1 - 46.3 fL | [facility] | | | | | | LABORATORY | | | | | | SERVICES, | | | | | | CORE | | + + + + + + | PLATELET | 123 (L) | 150 - 400 K/cu | [facility] | | | COUNT | | mm | LABORATORY | | | | | | SERVICES, | | | | | | CORE | | + + + + + + | MPV | 11.1 | 9.7 - 12.3 fL | [facility] | | | | | | LABORATORY | | | | | | SERVICES, | | | | | | CORE | | + + + + + + | NRBC% | 0.4 (H) | 0.0 - 0.3 % | [facility] | | | | | | LABORATORY | | | | | | SERVICES, | | | | | | CORE | | + + + + + + | NRBC# | 0.05 (H) | 0.00 - 0.02 | [facility] | | | | | K/cu mm | LABORATORY | | | | | | SERVICES, | | | | | | CORE | | + + + + + + + + | Specimen | + + | Blood | + + + + + + + | Performing | Address | City/State/Zipcode | Phone Number | | Organization | | | | + + + + + | [facility] | [address] | [place] [address] | | | SERVICES, ИРИНА | [address] | | | + + + + + CAPILLARY BLOOD GLUCOSE (NO CHG), POC (03/19/2017 7:21 PM PDT) + +---------+ + + + | Component | Value | Ref Range | Performed | Pathologist | | | | | At | Signature | + +---------+ + + + | BLOOD | 150 (H) | 70 - 99 mg/dL | [facility] - | | | GLUCOSE, | | | [facility] | | | POC | | | [facility] | | | | | | OF CARE | | | | | | TESTS | | + +---------+ + + + + + | Specimen | + + | | + + + + + + + | Performing | Address | City/State/Zipcode | Phone Number | | Organization | | | | + + + + + | [facility] | [address] | [place], [place] | | | [facility] CARE | [facility] | [address] | | | TESTS | | | | + + + + + CO-OXIMETER PANEL, BLOOD (03/19/2017 6:30 PM PDT) + + + + + + | Component | Value | Ref Range | Performed | Pathologist | | | | | At | Signature | + + + + + + | TOTAL | 12.7 (L) | 13.5 - 17.5 | [facility] | | | HEMOGLOBIN | | g/dL | LABORATORY | | | | | | SERVICES, | | | | | | CORE | | + + + + + + | OXYHEMOGLOB | 46.1 (L) | 94.0 - 100.0 % | [facility] | | | IN | | | LABORATORY | | | | | | SERVICES, | | | | | | CORE | | + + + + + + | CARBOXYHEMO | <1.0 | <1.6 % | [facility] | | | GLOBIN | | | LABORATORY | | | | | | SERVICES, | | | | | | CORE | | + + + + + + | METHEMOGLOB | <1.0 | % | [facility] | | | IN | | | LABORATORY | | | | | | SERVICES, | | | | | | CORE | | + + + + + + | OXYGEN SAT, | 46.8 (L) | 92.0 - 98.0 % | [facility] | | | SATISH | | | LABORATORY | | | | | | SERVICES, | | | | | | CORE | | + + + + + + | DEOXYHEMOGL | 52.3 | % | [facility] | | | OBIN | | | LABORATORY | | | | | | SERVICES, | | | | | | CORE | | + + + + + + + + | Specimen | + + | Blood | + + + + + | Narrative | Performed At | + + + | Carboxyhemoglobin ranges | [facility] | | Nonsmoker: <1.5% Smokers (1-2 | LABORATORY | | packs/day): 4-5% Smokers (>2 packs/day): 8-9% | SERVICES, CORE | | Methemoglobin Reference Range: 0-18 years: Not | | | Available >18 years: <2% of total hemoglobin | | + + + + + + + + | Performing | Address | City/State/Zipcode | Phone Number | | Organization | | | | + + + + + | [facility] | [address] | [place] [address] | | | SERVICES, CORE | [address] | | | + + + + + HEPARIN, EITHER STANDARD / LMW, BLOOD (03/19/2017 6:16 PM PDT) + +-------+ + + + | Component | Value | Ref Range | Performed | Pathologist | | | | | At | Signature | + +-------+ + + + | HEPARIN, | <0.10 | U/mL | [facility] | | | STD LMW | | | LABORATORY | | | | | | SERVICES, | | | | | | CORE | | + +-------+ + + + + + | Specimen | + + | Blood | + + + + + | Narrative | Performed At | + + + | LVAD/Advanced Heart Failure Heparin Protocol Heparin level 6 | [facility] | | hrs after every heparin rate change; If heparin level within target | LABORATORY | | range for 2 consecutive results, recheck every AM. Heparin, Either | SERVICES, CORE | | STD/LMW - Therapeutic Ranges: Heparin, Unfractionated: 0.35 - | | | 0.70 U/mL Enoxaparin, LMWH: 0.70 - 1.20 U/mL | | | Dalteparin, LMWH: 0.70 - 1.20 U/mL Tinzaparin, | | | LMWH: Therapeutic range not established. | | | Preliminary | | | studies suggest range | | | similar to | | | dalteparin. Clinical | | | correlation | | | required. Heparin levels may be unreliable for: | | | Total bilirubin | | | >28.8 mg/dL | | | Triglycerides | | | >690 mg/dL or | | | Moderate to Gross Hemolysis | | + + + + + + + + | Performing | Address | City/State/Zipcode | Phone Number | | Organization | | | | + + + + + | [facility] | [address] | [place] [address] | | | SERVICES, CORE | [address] | | | + + + + + CAPILLARY BLOOD GLUCOSE (NO CHG), POC (03/19/2017 6:11 PM PDT) + +---------+ + + + | Component | Value | Ref Range | Performed | Pathologist | | | | | At | Signature | + +---------+ + + + | BLOOD | 143 (H) | 70 - 99 mg/dL | [facility] - | | | GLUCOSE, | | | [facility] | | | POC | | | [facility] | | | | | | OF CARE | | | | | | TESTS | | + +---------+ + + + + + | Specimen | + + | | + + + + + + + | Performing | Address | City/State/Zipcode | Phone Number | | Organization | | | | + + + + + | [facility] | [address] | [place], [place] | | | [facility] | [address] | [address] | | | TESTS | | | | + + + + + BLOOD GASES, ARTERIAL - LAB (03/19/2017 5:45 PM PDT) + + + + + + | Component | Value | Ref Range | Performed | Pathologist | | | | | At | Signature | + + + + + + | PAT TEMP | 38.0 | Degree C | [facility] | | | ARTERIAL | | | LABORATORY | | | | | | SERVICES, | | | | | | CORE | | + + + + + + | FIO2 | 0.50 | | [facility] | | | ARTERIAL | | | LABORATORY | | | | | | SERVICES, | | | | | | CORE | | + + + + + + | PH ARTERIAL | 7.46 (H) | 7.37 - 7.44 | [facility] | | | | | | LABORATORY | | | | | | SERVICES, | | | | | | CORE | | + + + + + + | PCO2 | 38 | 32 - 43 mmHg | [facility] | | | ARTERIAL | | | LABORATORY | | | | | | SERVICES, | | | | | | CORE | | + + + + + + | PO2 | 59 (L) | 72 - 104 mmHg | [facility] | | | ARTERIAL | | | LABORATORY | | | | | | SERVICES, | | | | | | CORE | | + + + + + + | HCO3 | 27 | 21 - 28 mmol/L | [facility] | | | ARTERIAL | | | LABORATORY | | | | | | SERVICES, | | | | | | CORE | | + + + + + + | TOTAL CO2 | 28 | 22 - 28 mmol/L | [facility] | | | ARTERIAL | | | LABORATORY | | | | | | SERVICES, | | | | | | CORE | | + + + + + + | BASE EXCESS | 3.2 | mmol/L | [facility] | | | ARTERIAL | | | LABORATORY | | | | | | SERVICES, | | | | | | CORE | | + + + + + + | O2 SAT, | 89.8 (L) | 92.0 - 98.0 % | [facility] | | | ARTERIAL | | | LABORATORY | | | | | | SERVICES, | | | | | | CORE | | + + + + + + | PAO2/FIO2 | 118 (L) | >300 mmHg | [facility] | | | RATIO | | | LABORATORY | | | | | | SERVICES, | | | | | | CORE | | + + + + + + + + | Specimen | + + | Blood | + + + + + + + | Performing | Address | City/State/Zipcode | Phone Number | | Organization | | | | + + + + + | [facility] | [address] | [place] [address] | | | SERVICES, CORE | [address] | | | + + + + + COAGULOPATHY PANEL (INR,APTT,FIBRINOGEN) (03/19/2017 5:45 PM PDT) + + + + + + | Component | Value | Ref Range | Performed | Pathologist | | | | | At | Signature | + + + + + + | INR | 1.13 | 0.90 - 1.20 INR | [facility] | | | | | | LABORATORY | | | | | | SERVICES, | | | | | | CORE | | + + + + + + | APTT | 29.8 | 26.0 - 36.0 | [facility] | | | | | seconds | LABORATORY | | | | | | SERVICES, | | | | | | CORE | | + + + + + + | FIBRINOGEN | >750 (H) | 200 - 450 mg/dL | [facility] | | | LEVEL | | | LABORATORY | | | | | | SERVICES, | | | | | | CORE | | + + + + + + + + | Specimen | + + | Blood | + + + + + | Narrative | Performed At | + + + | Must order with concurrent CBC INR Therapeutic ranges for full | [facility] | | anticoagulation: INR for Venous | LABORATORY | | Thromboembolism (2.0 - 3.0) INR INR for | SERVICES, CORE | | most patients with mech. valves (2.5 - 3.5) INR APTT | | | Therapeutic Range: (75 - 120) | | | sec Heparin levels of 0.35 - 0.7 U/mL | | + + + + + + + + | Performing | Address | City/State/Zipcode | Phone Number | | Organization | | | | + + + + + | [facility] | [address] | [place] [address] | | | SERVICES, CORE | [address] | | | + + + + + POTASSIUM, PLASMA (03/19/2017 5:45 PM PDT) + +---------+ + + + | Component | Value | Ref Range | Performed | Pathologist | | | | | At | Signature | + +---------+ + + + | POTASSIUM, | 4.1 | 3.4 - 5.0 | [facility] | | | PLASMA | | mmol/L | LABORATORY | | | (LAB) | | | SERVICES, | | | | | | CORE | | + +---------+ + + + | POTASSIUM | No Hemo | | [facility] | | | CMNT | | | LABORATORY | | | | | | SERVICES, | | | | | | CORE | | + +---------+ + + + + + | Specimen | + + | Blood | + + + + + | Narrative | Performed At | + + + | PRN dysrhythmia. Starting Amiodarone for runs of VT or multifocal | [facility] | | PVCs PRN dysrhythmia. Starting Amiodarone for runs of VT or | LABORATORY | | multifocal PVCs | SERVICES, CORE | + + + + + + + + | Performing | Address | City/State/Zipcode | Phone Number | | Organization | | | | + + + + + | [facility] | [address] | [place] [address] | | | SERVICES, CORE | [address] | | | + + + + + MAGNESIUM, PLASMA (03/19/2017 5:45 PM PDT) + +-------+ + + + | Component | Value | Ref Range | Performed | Pathologist | | | | | At | Signature | + +-------+ + + + | MAGNESIUM,P | 2.5 | 1.8 - 2.5 mg/dL | [facility] | | | LASMA | | | LABORATORY | | | | | | SERVICES, | | | | | | CORE | | + +-------+ + + + + + | Specimen | + + | Blood | + + + + + | Narrative | Performed At | + + + | PRN dysrhythmia. Starting Amiodarone for runs of VT or multifocal | [facility] | | PVCs PRN dysrhythmia. Starting Amiodarone for runs of VT or | LABORATORY | | multifocal PVCs | SERVICES, CORE | + + + + + + + + | Performing | Address | City/State/Zipcode | Phone Number | | Organization | | | | + + + + + | [facility] | [address] | [place] [address] | | | SERVICES, CORE | [address] | | | + + + + + CAPILLARY BLOOD GLUCOSE (NO CHG), POC (03/19/2017 5:06 PM PDT) + +---------+ + + + | Component | Value | Ref Range | Performed | Pathologist | | | | | At | Signature | + +---------+ + + + | BLOOD | 144 (H) | 70 - 99 mg/dL | [facility] - | | | GLUCOSE, | | | [facility] | | | POC | | | [facility] | | | | | | OF CARE | | | | | | TESTS | | + +---------+ + + + + + | Specimen | + + | | + + + + + + + | Performing | Address | City/State/Zipcode | Phone Number | | Organization | | | | + + + + + | [facility] | [address] | [place], [place] | | | [facility] | [address] | [address] | | | TESTS | | | | + + + + + CAPILLARY BLOOD GLUCOSE (NO CHG), POC (03/19/2017 4:11 PM PDT) + +---------+ + + + | Component | Value | Ref Range | Performed | Pathologist | | | | | At | Signature | + +---------+ + + + | BLOOD | 143 (H) | 70 - 99 mg/dL | [facility] - | | | GLUCOSE, | | | [facility] | | | POC | | | [facility] | | | | | | OF CARE | | | | | | TESTS | | + +---------+ + + + + + | Specimen | + + | | + + + + + + + | Performing | Address | City/State/Zipcode | Phone Number | | Organization | | | | + + + + + | [facility] | [address] | [place], [place] | | | [facility] | [address] | [address] | | | TESTS | | | | + + + + + CAPILLARY BLOOD GLUCOSE (NO CHG), POC (03/19/2017 2:59 PM PDT) + +---------+ + + + | Component | Value | Ref Range | Performed | Pathologist | | | | | At | Signature | + +---------+ + + + | BLOOD | 156 (H) | 70 - 99 mg/dL | [facility] - | | | GLUCOSE, | | | [facility] | | | POC | | | [facility] | | | | | | OF CARE | | | | | | TESTS | | + +---------+ + + + + + | Specimen | + + | | + + + + + + + | Performing | Address | City/State/Zipcode | Phone Number | | Organization | | | | + + + + + | [facility] | [address] | [place], [place] | | | [facility] OF [facility] | [address] | [address] | | | TESTS | | | | + + + + + VANCOMYCIN, TROUGH (03/19/2017 1:53 PM PDT) + + + + + + | Component | Value | Ref Range | Performed | Pathologist | | | | | At | Signature | + + + + + + | VANCOMYCIN, | 18.0 (H) | 5.0 - 15.0 | [facility] | | | TROUGH | | ug/mL | LABORATORY | | | | | | SERVICES, | | | | | | CORE | | + + + + + + + + | Specimen | + + | Blood | + + + + + | Narrative | Performed At | + + + | IV Trough to be drawn immediately prior to next dose. Prior to | [facility] | | 4th dose for initial therapy. | LABORATORY | | | SERVICES, CORE | + + + + + + + + | Performing | Address | City/State/Zipcode | Phone Number | | Organization | | | | + + + + + | [facility] | [address] | [place] [address] | | | SERVICES, CORE | [address] | | | + + + + + 12 LEAD ECG (03/19/2017 1:11 PM PDT) + + + + + + | Component | Value | Ref Range | Performed | Pathologist | | | | | At | Signature | + + + + + + | VENTRICULAR | 130 | bpm | [facility] | | | RATE | | | OF | | | | | | CARDIOLOGY | | + + + + + + | ATRIAL RATE | 130 | ms | [facility] | | | | | | OF | | | | | | CARDIOLOGY | | + + + + + + | P-R | 120 | ms | [facility] | | | INTERVAL | | | OF | | | | | | CARDIOLOGY | | + + + + + + | P AXIS | 69 | deg | [facility] | | | | | | OF | | | | | | CARDIOLOGY | | + + + + + + | QRS | 78 | ms | [facility] | | | DURATION | | | OF | | | | | | CARDIOLOGY | | + + + + + + | QT | 312 | ms | [facility] | | | | | | OF | | | | | | CARDIOLOGY | | + + + + + + | QTCB | 459 | ms | [facility] | | | | | | OF | | | | | | CARDIOLOGY | | + + + + + + | R AXIS | -86 | deg | [facility] | | | | | | OF | | | | | | CARDIOLOGY | | + + + + + + | T AXIS | | deg | [facility] | | | | | | OF | | | | | | CARDIOLOGY | | + + + + + + | ECG | SINUS TACHYCARDIA | | [facility] | | | IMPRESSION | | | OF | | | | | | CARDIOLOGY | | + + + + + + | ECG | VENTRICULAR PREMATURE | | [facility] | | | IMPRESSION | COMPLEX | | OF | | | | | | CARDIOLOGY | | + + + + + + | ECG | PROBABLE ANTERIOR | | [facility] | | | IMPRESSION | INFARCT, ACUTE | | OF | | | | | | CARDIOLOGY | | + + + + + + | ECG | BORDERLINE T | | [facility] | | | IMPRESSION | ABNORMALITIES, INFERIOR | | OF | | | | LEADS- ABNORMAL ECG - | | CARDIOLOGY | | + + + + + + | ECG | Electronically signed | | [facility] | | | IMPRESSION | by: JANN JORGENSEN | | OF | | | | 03-20-2017 17:33:47 | | CARDIOLOGY | | + + + + + [...] | + + + + + | [facility] | [address] | [place], [place] | | | CARDIOLOGY | [facility] | [address] | | + + + + + CAPILLARY BLOOD GLUCOSE (NO CHG), POC (03/19/2017 1:05 PM PDT) + +---------+ + + + | Component | Value | Ref Range | Performed | Pathologist | | | | | At | Signature | + +---------+ + + + | BLOOD | 137 (H) | 70 - 99 mg/dL | [facility] - | | | GLUCOSE, | | | [facility] | | | POC | | | [facility] | | | | | | OF CARE | | | | | | TESTS | | + +---------+ + + + + + | Specimen | + + | | + + + + + + + | Performing | Address | City/State/Zipcode | Phone Number | | Organization | | | | + + + + + | [facility] | [address] | [place], [place] | | | [facility] | [address] | [address] | | | TESTS | | | | + + + + + KV-KW-ZKF-HBPOC RT (03/19/2017 1:04 PM PDT) + + + + + + | Component | Value | Ref Range | Performed | Pathologist | | | | | At | Signature | + + + + + + | HCO3 | 28.0 | 21 - 28 mmol/L | [facility] - | | | ARTERIAL, | | | [facility] | | | POC | | | [facility] | | | | | | OF CARE | | | | | | TESTS | | + + + + + + | PCO2 | 42 | 32 - 43 mmHg | [facility] - | | | ARTERIAL, | | | [facility] | | | POC | | | [facility] | | | | | | OF CARE | | | | | | TESTS | | + + + + + + | PH | 7.43 | 7.37 - 7.44 | [facility] - | | | ARTERIAL, | | | [facility] | | | POC | | | [facility] | | | | | | OF CARE | | | | | | TESTS | | + + + + + + | O2 SAT | 95.7 | 92.0 - 98.0 % | [facility] - | | | ARTERIAL, | | | [facility] | | | POC | | | [facility] | | | | | | OF CARE | | | | | | TESTS | | + + + + + + | PO2 | 76 | 72 - 104 mmHg | [facility] - | | | ARTERIAL, | | | [facility] | | | POC | | | [facility] | | | | | | OF CARE | | | | | | TESTS | | + + + + + + | BASE EXCESS | 3.7 | | [facility] - | | | ART, POC | | | [facility] | | | | | | [facility] | | | | | | OF CARE | | | | | | TESTS | | + + + + + + | PAO2/FIO2 | 152.0 (L) | >300 mmHg | [facility] - | | | RATIO, POC | | | [facility] | | | | | | [facility] | | | | | | OF CARE | | | | | | TESTS | | + + + + + + | SODIUM, WHL | 145 (H) | 134 - 143 | [facility] - | | | BLD, POC | | mmol/L | [facility] | | | | | | [facility] | | | | | | OF CARE | | | | | | TESTS | | + + + + + + | POTASSIUM,W | 4.3 | 3.4 - 5.0 | [facility] - | | | HL BLD, POC | | mmol/L | [facility] | | | | | | [facility] | | | | | | OF CARE | | | | | | TESTS | | + + + + + + | SATISH | 1.12 (L) | 1.14 - 1.32 | [facility] - | | | IONIZED | | mmol/L | [facility] | | | CA,WHOLE | | | [facility] POINT | | | BLD,POC | | | OF CARE | | | | | | TESTS | | + + + + + + | HEMOGLOBIN, | 9.4 (L) | 13.5 - 17.5 | [facility] - | | | POC | | g/dL | [facility] | | | | | | [facility] | | | | | | OF CARE | | | | | | TESTS | | + + + + + + | LACTATE POC | 1.0 | 0.5 - 1.6 | [facility] - | | | | | mmol/L | [facility] | | | | | | [facility] | | | | | | OF CARE | | | | | | TESTS | | + + + + + + | FIO2 ART, | 50.0 | | [facility] - | | | POC | | | [facility] | | | | | | [facility] | | | | | | OF CARE | | | | | | TESTS | | + + + + + + | PAT TEMP | 36.8 | | [facility] - | | | ART, POC | | | [facility] | | | | | | [facility] | | | | | | OF CARE | | | | | | TESTS | | + + + + + + + + | Specimen | + + | Blood | + + + + + + + | Performing | Address | City/State/Zipcode | Phone Number | | Organization | | | | + + + + + | [facility] | [address] | [place], [place] | | | [facility] | [address] | [address] | | | TESTS | | | | + + + + + PRODUCT - RED CELLS LEUKOREDUCED (03/19/2017 1:03 PM PDT) + + + + + + | Component | Value | Ref Range | Performed | Pathologist | | | | | At | Signature | + + + + + + | PRODUCT | -3 RED BLOOD CELLS | | [facility] | | | DESCRIPTION | ADENINE-SALINE ADDED | | LABORATORY | | | | LEUKOCYT | | SERVICES, | | | | | | TRANSFUSION | | | | | | MEDICINE | | + + + + + + | PRODUCT | [id number] | | [facility] | | | UNIT # | | | LABORATORY | | | | | | SERVICES, | | | | | | TRANSFUSION | | | | | | MEDICINE | | + + + + + + | UNIT ABO | O | | [facility] | | | | | | LABORATORY | | | | | | SERVICES, | | | | | | TRANSFUSION | | | | | | MEDICINE | | + + + + + + | UNIT RH | POS | | [facility] | | | | | | LABORATORY | | | | | | SERVICES, | | | | | | TRANSFUSION | | | | | | MEDICINE | | + + + + + + | STATUS OF | Returned to Blood Bank | | [facility] | | | UNIT | | | LABORATORY | | | | | | SERVICES, | | | | | | TRANSFUSION | | | | | | MEDICINE | | + + + + + + | EXPIRATION | [id number] | | [facility] | | | DATE | | | LABORATORY | | | | | | SERVICES, | | | | | | TRANSFUSION | | | | | | MEDICINE | | + + + + + + | BLOOD TYPE | 5100 | | [facility] | | | BARCODE | | | LABORATORY | | | | | | SERVICES, | | | | | | TRANSFUSION | | | | | | MEDICINE | | + + + + + + | BLOOD | [id number] | | [facility] | | | PRODUCT | | | LABORATORY | | | CODE | | | SERVICES, | | | | | | TRANSFUSION | | | | | | MEDICINE | | + + + + + + + + | Specimen | + + | | + + + + + + + | Performing | Address | City/State/Zipcode | Phone Number | | Organization | | | | + + + + + | [facility] | [address] | [place] [address] | | | SERVICES, | [address] | | | | TRANSFUSION MEDICINE | | | | + + + + + PRODUCT - RED CELLS LEUKOREDUCED (03/19/2017 1:03 PM PDT) + + + + + + | Component | Value | Ref Range | Performed | Pathologist | | | | | At | Signature | + + + + + + | PRODUCT | -1 RED BLOOD CELL | | [facility] | | | DESCRIPTION | ADENINE-SALINE ADDED | | LABORATORY | | | | LEUKOCYTE | | SERVICES, | | | | | | TRANSFUSION | | | | | | MEDICINE | | + + + + + + | PRODUCT | [id number] | | [facility] | | | UNIT # | | | LABORATORY | | | | | | SERVICES, | | | | | | TRANSFUSION | | | | | | MEDICINE | | + + + + + + | UNIT ABO | O | | [facility] | | | | | | LABORATORY | | | | | | SERVICES, | | | | | | TRANSFUSION | | | | | | MEDICINE | | + + + + + + | UNIT RH | POS | | [facility] | | | | | | LABORATORY | | | | | | SERVICES, | | | | | | TRANSFUSION | | | | | | MEDICINE | | + + + + + + | STATUS OF | Returned to Blood Bank | | [facility] | | | UNIT | | | LABORATORY | | | | | | SERVICES, | | | | | | TRANSFUSION | | | | | | MEDICINE | | + + + + + + | EXPIRATION | [id number] | | [facility] | | | DATE | | | LABORATORY | | | | | | SERVICES, | | | | | | TRANSFUSION | | | | | | MEDICINE | | + + + + + + | BLOOD TYPE | 5100 | | [facility] | | | BARCODE | | | LABORATORY | | | | | | SERVICES, | | | | | | TRANSFUSION | | | | | | MEDICINE | | + + + + + + | BLOOD | [id number] | | [facility] | | | PRODUCT | | | LABORATORY | | | CODE | | | SERVICES, | | | | | | TRANSFUSION | | | | | | MEDICINE | | + + + + + + + + | Specimen | + + | | + + + + + + + | Performing | Address | City/State/Zipcode | Phone Number | | Organization | | | | + + + + + | [facility] | [address] | [place] [address] | | | SERVICES, | [address] | | | | TRANSFUSION MEDICINE | | | | + + + + + PRODUCT - RED CELLS LEUKOREDUCED (03/19/2017 1:03 PM PDT) + + + + + + | Component | Value | Ref Range | Performed | Pathologist | | | | | At | Signature | + + + + + + | PRODUCT | -1 RED BLOOD CELL | | [facility] | | | DESCRIPTION | ADENINE-SALINE ADDED | | LABORATORY | | | | LEUKOCYTE | | SERVICES, | | | | | | TRANSFUSION | | | | | | MEDICINE | | + + + + + + | PRODUCT | [id number] | | [facility] | | | UNIT # | | | LABORATORY | | | | | | SERVICES, | | | | | | TRANSFUSION | | | | | | MEDICINE | | + + + + + + | UNIT ABO | O | | [facility] | | | | | | LABORATORY | | | | | | SERVICES, | | | | | | TRANSFUSION | | | | | | MEDICINE | | + + + + + + | UNIT RH | POS | | [facility] | | | | | | LABORATORY | | | | | | SERVICES, | | | | | | TRANSFUSION | | | | | | MEDICINE | | + + + + + + | STATUS OF | Returned to Blood Bank | | [facility] | | | UNIT | | | LABORATORY | | | | | | SERVICES, | | | | | | TRANSFUSION | | | | | | MEDICINE | | + + + + + + | EXPIRATION | [id number] | | [facility] | | | DATE | | | LABORATORY | | | | | | SERVICES, | | | | | | TRANSFUSION | | | | | | MEDICINE | | + + + + + + | BLOOD TYPE | 5100 | | [facility] | | | BARCODE | | | LABORATORY | | | | | | SERVICES, | | | | | | TRANSFUSION | | | | | | MEDICINE | | + + + + + + | BLOOD | [id number] | | [facility] | | | PRODUCT | | | LABORATORY | | | CODE | | | SERVICES, | | | | | | TRANSFUSION | | | | | | MEDICINE | | + + + + + + + + | Specimen | + + | | + + + + + + + | Performing | Address | City/State/Zipcode | Phone Number | | Organization | | | | + + + + + | [facility] | [address] | [place] [address] | | | SERVICES, | [address] | | | | TRANSFUSION MEDICINE | | | | + + + + + PRODUCT - RED CELLS LEUKOREDUCED (03/19/2017 1:03 PM PDT) + + + + + + | Component | Value | Ref Range | Performed | Pathologist | | | | | At | Signature | + + + + + + | PRODUCT | -1 RED BLOOD CELL | | [facility] | | | DESCRIPTION | ADENINE-SALINE ADDED | | LABORATORY | | | | LEUKOCYTE | | SERVICES, | | | | | | TRANSFUSION | | | | | | MEDICINE | | + + + + + + | PRODUCT | [id number] | | [facility] | | | UNIT # | | | LABORATORY | | | | | | SERVICES, | | | | | | TRANSFUSION | | | | | | MEDICINE | | + + + + + + | UNIT ABO | O | | [facility] | | | | | | LABORATORY | | | | | | SERVICES, | | | | | | TRANSFUSION | | | | | | MEDICINE | | + + + + + + | UNIT RH | POS | | [facility] | | | | | | LABORATORY | | | | | | SERVICES, | | | | | | TRANSFUSION | | | | | | MEDICINE | | + + + + + + | STATUS OF | Returned to Blood Bank | | [facility] | | | UNIT | | | LABORATORY | | | | | | SERVICES, | | | | | | TRANSFUSION | | | | | | MEDICINE | | + + + + + + | EXPIRATION | [id number] | | [facility] | | | DATE | | | LABORATORY | | | | | | SERVICES, | | | | | | TRANSFUSION | | | | | | MEDICINE | | + + + + + + | BLOOD TYPE | 5100 | | [facility] | | | BARCODE | | | LABORATORY | | | | | | SERVICES, | | | | | | TRANSFUSION | | | | | | MEDICINE | | + + + + + + | BLOOD | [id number] | | [facility] | | | PRODUCT | | | LABORATORY | | | CODE | | | SERVICES, | | | | | | TRANSFUSION | | | | | | MEDICINE | | + + + + + + + + | Specimen | + + | | + + + + + + + | Performing | Address | City/State/Zipcode | Phone Number | | Organization | | | | + + + + + | [facility] | [address] | [place] [address] | | | SERVICES, | [address] | | | | TRANSFUSION MEDICINE | | | | + + + + + CBC (HEMOGRAM) ONLY (03/19/2017 1:00 PM PDT) + + + + + + | Component | Value | Ref Range | Performed | Pathologist | | | | | At | Signature | + + + + + + | WHITE CELL | 12.21 (H) | 3.50 - 10.80 | [facility] | | | COUNT | | K/cu mm | LABORATORY | | | | | | SERVICES, | | | | | | CORE | | + + + + + + | RED CELL | 2.84 (L) | 4.50 - 6.00 | [facility] | | | COUNT | | M/cu mm | LABORATORY | | | | | | SERVICES, | | | | | | CORE | | + + + + + + | HEMOGLOBIN | 9.2 (L) | 13.5 - 17.5 | [facility] | | | | | g/dL | LABORATORY | | | | | | SERVICES, | | | | | | CORE | | + + + + + + | HEMATOCRIT | 27.9 (L) | 41.0 - 53.0 % | [facility] | | | | | | LABORATORY | | | | | | SERVICES, | | | | | | CORE | | + + + + + + | MCV | 98.2 (H) | 80.0 - 96.0 fL | [facility] | | | | | | LABORATORY | | | | | | SERVICES, | | | | | | CORE | | + + + + + + | MCHC | 33.0 | 33.0 - 35.5 | [facility] | | | | | g/dL | LABORATORY | | | | | | SERVICES, | | | | | | CORE | | + + + + + + | RDW SD | 52.7 (H) | 35.1 - 46.3 fL | [facility] | | | | | | LABORATORY | | | | | | SERVICES, | | | | | | CORE | | + + + + + + | PLATELET | 122 (L) | 150 - 400 K/cu | [facility] | | | COUNT | | mm | LABORATORY | | | | | | SERVICES, | | | | | | CORE | | + + + + + + | MPV | 11.2 | 9.7 - 12.3 fL | [facility] | | | | | | LABORATORY | | | | | | SERVICES, | | | | | | CORE | | + + + + + + | NRBC% | 0.3 | 0.0 - 0.3 % | [facility] | | | | | | LABORATORY | | | | | | SERVICES, | | | | | | CORE | | + + + + + + | NRBC# | 0.04 (H) | 0.00 - 0.02 | [facility] | | | | | K/cu mm | LABORATORY | | | | | | SERVICES, | | | | | | CORE | | + + + + + + + + | Specimen | + + | Blood | + + + + + | Narrative | Performed At | + + + | Must be ordered if Coagulopathy Panel is ordered | [facility] | | | LABORATORY | | | SERVICES, CORE | + + + + + + + + | Performing | Address | City/State/Zipcode | Phone Number | | Organization | | | | + + + + + | [facility] | [address] | [place] [address] | | | SERVICES, [address] | [address] | | | + + + + + RENAL FUNCTION SET (NA,K,CL,CO2,BUN,CREAT,GLUC,CA,PHOS,ALB ) (03/19/2017 1:00 PM PDT) + + + + + + | Component | Value | Ref Range | Performed | Pathologist | | | | | At | Signature | + + + + + + | GLUCOSE, | 138 (H) | 70 - 99 mg/dL | [facility] | | | PLASMA | | | LABORATORY | | | (LAB) | | | SERVICES, | | | | | | CORE | | + + + + + + | BUN, PLASMA | 33 (H) | 6 - 20 mg/dL | [facility] | | | (LAB) | | | LABORATORY | | | | | | SERVICES, | | | | | | CORE | | + + + + + + | CREATININE | 1.36 (H) | 0.70 - 1.30 | [facility] | | | PLASMA | | mg/dL | LABORATORY | | | (LAB) | | | SERVICES, | | | | | | CORE | | + + + + + + | EGFR | >60 | >60 mL/min | [facility] | | | - | | | LABORATORY | | | SLOVENIAN | | | SERVICES, | | | | | | CORE | | + + + + + + | EGFR NON | 53 (L) | >60 mL/min | [facility] | | | -SOREN | | | LABORATORY | | | RICAN | | | SERVICES, | | | | | | CORE | | + + + + + + | SODIUM, | 144 | 136 - 145 | [facility] | | | PLASMA | | mmol/L | LABORATORY | | | (LAB) | | | SERVICES, | | | | | | CORE | | + + + + + + | POTASSIUM, | 4.2 | 3.4 - 5.0 | [facility] | | | PLASMA | | mmol/L | LABORATORY | | | (LAB) | | | SERVICES, | | | | | | CORE | | + + + + + + | CHLORIDE, | 110 (H) | 97 - 108 mmol/L | [facility] | | | PLASMA | | | LABORATORY | | | (LAB) | | | SERVICES, | | | | | | CORE | | + + + + + + | TOTAL CO2, | 27 | 21 - 32 mmol/L | [facility] | | | PLASMA | | | LABORATORY | | | (LAB) | | | SERVICES, | | | | | | CORE | | + + + + + + | CALCIUM, | 8.2 (L) | 8.6 - 10.2 | [facility] | | | PLASMA | | mg/dL | LABORATORY | | | (LAB) | | | SERVICES, | | | | | | CORE | | + + + + + + | CALCIUM(ALB | 9.8 | 8.6 - 10.2 | [facility] | | | CORRECTED) | | mg/dL | LABORATORY | | | | | | SERVICES, | | | | | | CORE | | + + + + + + | ALBUMIN, | 2.0 (L) | 3.5 - 4.7 g/dL | [facility] | | | PLASMA | | | LABORATORY | | | (LAB) | | | SERVICES, | | | | | | CORE | | + + + + + + | PHOSPHORUS, | 4.1 | 2.4 - 4.7 mg/dL | [facility] | | | PLASMA | | | LABORATORY | | | (LAB) | | | SERVICES, | | | | | | CORE | | + + + + + + | POTASSIUM | No Hemo | | [facility] | | | CMNT | | | LABORATORY | | | | | | SERVICES, | | | | | | CORE | | + + + + + + | ANION GAP | 7 | mmol/L | [facility] | | | | | | LABORATORY | | | | | | SERVICES, | | | | | | CORE | | + + + + + + | ANION | 12 (H) | 4 - 11 mmol/L | [facility] | | | GAP(ALB | | | LABORATORY | | | CORRECTED) | | | SERVICES, | | | | | | CORE | | + + + + + + + + | Specimen | + + | Blood | + + + + + | Narrative | Performed At | + + + | Adult glucose reference range change effective 7-12-17. 2 hrs | [facility] | | after intravenous magnesium repletion if magnesium < 1.6. GFR is | LABORATORY | | estimated using the MDRD equation recommended by the National Kidney | SERVICES, CORE | | Disease Education Program. Estimated GFR Interpretive Information: | | | <60 mL/min/1.73 sq m Chronic Kidney | | | Disease <15 mL/min/1.73 sq m Kidney | | | Failure Estimated GFR greater that 60 mL/min/1.73 sq m is of limited | | | clinical value. The MDRD equation is not valid in the following | | | situations: - Patients under 18 years of age - Severe malnutrition | | | or obesity - Vegetarian diet - Rapidly changing kidney function | | + + + + + + + + | Performing | Address | City/State/Zipcode | Phone Number | | Organization | | | | + + + + + | [facility] | [address] | [place] [address] | | | SERVICES, CORE | [address] | | | + + + + + MAGNESIUM, PLASMA (03/19/2017 1:00 PM PDT) + +-------+ + + + | Component | Value | Ref Range | Performed | Pathologist | | | | | At | Signature | + +-------+ + + + | MAGNESIUM,P | 2.5 | 1.8 - 2.5 mg/dL | [facility] | | | LASMA | | | LABORATORY | | | | | | SERVICES, | | | | | | CORE | | + +-------+ + + + + + | Specimen | + + | Blood | + + + + + | Narrative | Performed At | + + + | 2 hrs after intravenous magnesium repletion if magnesium < 1.6. | [facility] | | | LABORATORY | | | SERVICES, CORE | + + + + + + + + | Performing | Address | City/State/Zipcode | Phone Number | | Organization | | | | + + + + + | [facility] | [address] | [place] [address] | | | SERVICES, CORE | [address] | | | + + + + + COAGULOPATHY PANEL (INR,APTT,FIBRINOGEN) (03/19/2017 1:00 PM PDT) + + + + + + | Component | Value | Ref Range | Performed | Pathologist | | | | | At | Signature | + + + + + + | INR | 1.12 | 0.90 - 1.20 INR | [facility] | | | | | | LABORATORY | | | | | | SERVICES, | | | | | | CORE | | + + + + + + | APTT | 33.7 | 26.0 - 36.0 | [facility] | | | | | seconds | LABORATORY | | | | | | SERVICES, | | | | | | CORE | | + + + + + + | FIBRINOGEN | >750 (H) | 200 - 450 mg/dL | [facility] | | | LEVEL | | | LABORATORY | | | | | | SERVICES, | | | | | | CORE | | + + + + + + + + | Specimen | + + | Blood | + + + + + | Narrative | Performed At | + + + | Must order with concurrent CBC INR Therapeutic ranges for full | [facility] | | anticoagulation: INR for Venous | LABORATORY | | Thromboembolism (2.0 - 3.0) INR INR for | SERVICES, CORE | | most patients with mech. valves (2.5 - 3.5) INR APTT | | | Therapeutic Range: (75 - 120) | | | sec Heparin levels of 0.35 - 0.7 U/mL | | + + + + + + + + | Performing | Address | City/State/Zipcode | Phone Number | | Organization | | | | + + + + + | [facility] | [address] | [place] [address] | | | SERVICES, CORE | [address] | | | + + + + + AL ECMO REV (EXT)AND/OR DECANNULATION (03/19/2017 12:36 PM PDT) + + + | Narrative | Performed At | + + + | GISELL Trinh 03/19/2017 12:36 PM Pre-operative: | | | Patient was on veno-arterial ECMO support for cardiogenic shock | | | following PCI, 4 days earlier. Based on multi-disciplinary review, | | | it was felt that the patient was stable to attempt weaning off ECMO | | | support. We decided to have Impella 5.0 available as back up. | | | Anesthesia: General Complications:Nil Blood loss: Approx. 100 ml | | | Operative procedure: Patient was prepared and draped. Under MARKY | | | monitoring, flows were turned down sequentially to 1.5 L, 1 L and | | | 0.5 L for 20 minutes each. There was stable BP, Heart Rate, PA | | | pressures and LV function remained the same (good lateral & inferior | | | wall movement, with akinetic septum & anterior wall, No mitral | | | regurgitation). The cannulae were clamped and the circuit kept | | | active for over 20 minutes. The femoral arterial cannula was then | | | re-accessed with a long 0.035" wire (with about 100 ml blood loss). | | | The PerClose sutures were then deployed and locked on 3 sides with | | | wire access maintained. There was good hemostasis and the wire was | | | removed. The venous line was removed and the hole closed with 1 Nylon | | | 'Z' stitch, with acceptable hemostasis. The femoral distal | | | perfusion cannula was re-wired and PerClose attempted - but the | | | sutures would not hold. We removed the 7 Fr sheath and held pressure | | | for 15 minutes with good hemostasis. The patient was stable after | | | decannulation - for 30 minutes with no hemodynamic changes, with a | | | background infusion of Epinephrine of 0.02 mcg/kg/min. He was | | | transferred to the CVICU in this stable state. Siria | | | GISELL Preston PhD [facility] [address] [id number] [place], | | | [place] [address] | | + + + ABG-FULL ABL, POC (03/19/2017 12:14 PM PDT) + + + + + + | Component | Value | Ref Range | Performed | Pathologist | | | | | At | Signature | + + + + + + | PH | 7.42 | 7.37 - 7.44 | [facility] - | | | ARTERIAL, | | | [facility] | | | POC | | | JUL[facility] | | | | | | OF CARE | | | | | | TESTS | | + + + + + + | PO2 | 93 | 72 - 104 mmHg | [facility] - | | | ARTERIAL, | | | [facility] | | | POC | | | [facility] | | | | | | OF CARE | | | | | | TESTS | | + + + + + + | PCO2 | 42 | 32 - 43 mmHg | [facility] - | | | ARTERIAL, | | | [facility] | | | POC | | | [facility] | | | | | | OF CARE | | | | | | TESTS | | + + + + + + | TOTAL | 9.1 (L) | 13.5 - 17.5 | [facility] - | | | HEMOGLOBIN, | | g/dL | [facility] | | | POC | | | [facility] | | | | | | OF CARE | | | | | | TESTS | | + + + + + + | O2 SAT | 97.6 | 92.0 - 98.0 % | [facility] - | | | ARTERIAL, | | | [facility] | | | POC | | | RICARDO, POINT | | | | | | OF CARE | | | | | | TESTS | | + + + + + + | HEMATOCRIT, | 27.9 (L) | 41.0 - 53.0 % | [facility] - | | | POC | | | [facility] | | | | | | RICARDO, POINT | | | | | | OF CARE | | | | | | TESTS | | + + + + + + | POTASSIUM, | 4.1 | 3.4 - 5.0 | [facility] - | | | POC | | mmol/L | [facility] | | | | | | RICARDO, POINT | | | | | | OF CARE | | | | | | TESTS | | + + + + + + | SODIUM, POC | 146 (H) | 134 - 143 | [facility] - | | | | | mmol/L | [facility] | | | | | | RICARDO, POINT | | | | | | OF CARE | | | | | | TESTS | | + + + + + + | SATISH | 1.15 | 1.14 - 1.32 | [facility] - | | | IONIZED CA, | | mmol/L | [facility] | | | POC | | | RICARDO, POINT | | | | | | OF CARE | | | | | | TESTS | | + + + + + + | CHLORIDE, | 109 (H) | 97 - 108 mmol/L | [facility] - | | | POC | | | [facility] | | | | | | RICARDO POINT | | | | | | OF CARE | | | | | | TESTS | | + + + + + + | GLUCOSE, | 145 (H) | 70 - 99 mg/dL | [facility] - | | | POC | | | [facility] | | | | | | RICARDO POINT | | | | | | OF CARE | | | | | | TESTS | | + + + + + + | HCO3 | 27.2 | 21 - 28 mmol/L | [facility] - | | | ARTERIAL, | | | [facility] | | | POC | | | RICARDO, POINT | | | | | | OF CARE | | | | | | TESTS | | + + + + + + | BASE EXCESS | 2.7 | | [facility] - | | | ARTERIAL, | | | [facility] | | | POC | | | RICARDO, POINT | | | | | | OF CARE | | | | | | TESTS | | + + + + + + | LACTATE | 0.9 | 0.5 - 1.6 | [facility] - | | | ARTERIAL, | | mmol/L | [facility] | | | POC | | | HILL, POINT | | | | | | OF CARE | | | | | | TESTS | | + + + + + + | PAT TEMP | 37.0 | | [facility] - | | | ART, POC | | | [facility] | | | | | | HILL, POINT | | | | | | OF CARE | | | | | | TESTS | | + + + + + + + + | Specimen | + + | | + + + + + + + | Performing | Address | City/State/Zipcode | Phone Number | | Organization | | | | + + + + + | [facility] | [address] | [place], [place] | | | JULIANN SIL[facility] OF CARE | [address] | [address] | | | TESTS | | | | + + + + + AYLA-KARY DE LA CRUZ (03/19/2017 11:27 AM PDT) + + + + + + | Component | Value | Ref Range | Performed | Pathologist | | | | | At | Signature | + + + + + + | PH | 7.48 (H) | 7.37 - 7.44 | [facility] - | | | ARTERIAL, | | | [facility] | | | POC | | | RICARDO POINT | | | | | | OF CARE | | | | | | TESTS | | + + + + + + | PO2 | 90 | 72 - 104 mmHg | [facility] - | | | ARTERIAL, | | | [facility] | | | POC | | | JULIANN SILVA | | | | | | OF CARE | | | | | | TESTS | | + + + + + + | PCO2 | 37 | 32 - 43 mmHg | [facility] - | | | ARTERIAL, | | | [facility] | | | POC | | | JULIANN SIL[facility] | | | | | | OF CARE | | | | | | TESTS | | + + + + + + | TOTAL | 9.4 (L) | 13.5 - 17.5 | [facility] - | | | HEMOGLOBIN, | | g/dL | [facility] | | | POC | | | JULI[facility] | | | | | | OF CARE | | | | | | TESTS | | + + + + + + | O2 SAT | 97.5 | 92.0 - 98.0 % | [facility] - | | | ARTERIAL, | | | [facility] | | | POC | | | RICARDO, POINT | | | | | | OF CARE | | | | | | TESTS | | + + + + + + | HEMATOCRIT, | 28.8 (L) | 41.0 - 53.0 % | [facility] - | | | POC | | | [facility] | | | | | | RICARDO POINT | | | | | | OF CARE | | | | | | TESTS | | + + + + + + | POTASSIUM, | 4.3 | 3.4 - 5.0 | [facility] - | | | POC | | mmol/L | [facility] | | | | | | RICARDO POINT | | | | | | OF CARE | | | | | | TESTS | | + + + + + + | SODIUM, POC | 145 (H) | 134 - 143 | [facility] - | | | | | mmol/L | [facility] | | | | | | RICARDO POINT | | | | | | OF CARE | | | | | | TESTS | | + + + + + + | SATISH | 1.07 (L) | 1.14 - 1.32 | [facility] - | | | IONIZED CA, | | mmol/L | [facility] | | | POC | | | JULIANN [facility] | | | | | | OF CARE | | | | | | TESTS | | + + + + + + | CHLORIDE, | 109 (H) | 97 - 108 mmol/L | [facility] - | | | POC | | | [facility] | | | | | | JULIANN SILVA | | | | | | OF CARE | | | | | | TESTS | | + + + + + + | GLUCOSE, | 147 (H) | 70 - 99 mg/dL | [facility] - | | | POC | | | [facility] | | | | | | JULIANN SIL[facility] | | | | | | OF CARE | | | | | | TESTS | | + + + + + + | HCO3 | 27.6 | 21 - 28 mmol/L | [facility] - | | | ARTERIAL, | | | [facility] | | | POC | | | JULIANN SILVA | | | | | | OF CARE | | | | | | TESTS | | + + + + + + | BASE EXCESS | 4.1 | | [facility] - | | | [facility], | | | [facility] | | | POC | | | [place] [place] | | | | | | OF CARE | | | | | | TESTS | | + + + + + + | LACTATE | 0.8 | 0.5 - 1.6 | [facility] - | | | [facility], | | mmol/L | [facility] | | | POC | | | [place] [place] | | | | | | OF CARE | | | | | | TESTS | | + + + + + + | PAT TEMP | 37.0 | | [facility] - | | | ART, POC | | | [facility] | | | | | | [place] [place] | | | | | | OF CARE | | | | | | TESTS | | + + + + + + + + | Specimen | + + | | + + + + + + + | Performing | Address | City/State/Zipcode | Phone Number | | Organization | | | | + + + + + | [facility] | [address] | [place], [place] | | | [facility] | [address] | [address] | | | TESTS | | | | + + + + + [facility]U-US-VJJ-HB,POC RT (03/19/2017 10:24 AM PDT) + + + + + + | Component | Value | Ref Range | Performed | Pathologist | | | | | At | Signature | + + + + + + | HCO3 | 27.5 | 21 - 28 mmol/L | [facility] | | | [facility], | | | [facility] | | | POC | | | [place] | | | | | | OF CARE | | | | | | TESTS | | + + + + + + | PCO2 | 36 | 32 - 43 mmHg | [facility] - | | | [facility], | | | [facility] | | | POC | | | [place] | | | | | | OF CARE | | | | | | TESTS | | + + + + + + | PH | 7.49 (H) | 7.37 - 7.44 | [facility] - | | | [facility], | | | [facility] | | | POC | | | [place] [facility] | | | | | | OF CARE | | | | | | TESTS | | + + + + + + | O2 SAT | 98.5 (H) | 92.0 - 98.0 % | [facility] | | | [facility], | | | [facility] | | | POC | | | [place] | | | | | | OF CARE | | | | | | TESTS | | + + + + + + | PO2 | 98 | 72 - 104 mmHg | [facility] - | | | ART[facility], | | | [facility] | | | POC | | | [place] | | | | | | OF CARE | | | | | | TESTS | | + + + + + + | BASE EXCESS | 4.2 | | [facility] | | | ART, POC | | | [facility] | | | | | | [place] | | | | | | OF CARE | | | | | | TESTS | | + + + + + + | PAO2/FIO2 | 98.0 (L) | >300 mmHg | [facility] - | | | RATIO, POC | | | [facility] | | | | | | [place] | | | | | | OF CARE | | | | | | TESTS | | + + + + + + | SODIUM, WHL | 145 (H) | 134 - 143 | [facility] - | | | BLD, POC | | mmol/L | [facility] | | | | | | [place] | | | | | | OF CARE | | | | | | TESTS | | + + + + + + | POTASSIUM,W | 4.2 | 3.4 - 5.0 | [facility] - | | | HL BLD, POC | | mmol/L | [facility] | | | | | | [facility] | | | | | | OF CARE | | | | | | TESTS | | + + + + + + | SATISH | 1.10 (L) | 1.14 - 1.32 | [facility] - | | | IONIZED | | mmol/L | [facility] | | | CA,WHOLE | | | [facility] | | | BLD,POC | | | OF CARE | | | | | | TESTS | | + + + + + + | HEMOGLOBIN, | 9.3 (L) | 13.5 - 17.5 | [facility] - | | | POC | | g/dL | [facility] | | | | | | [facility] | | | | | | OF CARE | | | | | | TESTS | | + + + + + + | LACTATE POC | 0.7 | 0.5 - 1.6 | [facility] - | | | | | mmol/L | [facility] | | | | | | [facility] | | | | | | OF CARE | | | | | | TESTS | | + + + + + + | FIO2 ART, | 100.0 | | [facility] - | | | POC | | | [facility] | | | | | | [facility] | | | | | | OF CARE | | | | | | TESTS | | + + + + + + | PAT TEMP | 37.5 | | [facility] - | | | ART, POC | | | [facility] | | | | | | [facility] | | | | | | OF CARE | | | | | | TESTS | | + + + + + + | COMMENT | ecmo fio2 25 | | [facility] - | | | (BLOOD GAS, | | | [facility] | | | POC) | | | [facility] | | | | | | OF CARE | | | | | | TESTS | | + + + + + + + + | Specimen | + + | Blood | + + + + + + + | Performing | Address | City/State/Zipcode | Phone Number | | Organization | | | | + + + + + | [facility] | [address] | [place], [place] | | | [facility] | [address] | [phone] | | | TESTS | | | | + + + + + CAPILLARY BLOOD GLUCOSE (NO CHG), POC (03/19/2017 10:08 AM PDT) + +---------+ + + + | Component | Value | Ref Range | Performed | Pathologist | | | | | At | Signature | + +---------+ + + + | BLOOD | 126 (H) | 70 - 99 mg/dL | [facility] - | | | GLUCOSE, | | | [facility] | | | POC | | | [facility] | | | | | | OF CARE | | | | | | TESTS | | + +---------+ + + + + + | Specimen | + + | | + + + + + + + | Performing | Address | City/State/Zipcode | Phone Number | | Organization | | | | + + + + + | [facility] | [phone] | [place], [place] | | | [facility] | [facility] | [address] | | | TESTS | | | | + + + + + NH-BQ-JJD-HB,POC RT (03/19/2017 10:06 AM PDT) + + + + + + | Component | Value | Ref Range | Performed | Pathologist | | | | | At | Signature | + + + + + + | HCO3 | 27.1 | 21 - 28 mmol/L | [facility] | | | ARTERIAL, | | | [facility] | | | POC | | | [facility] | | | | | | OF CARE | | | | | | TESTS | | + + + + + + | PCO2 | 32 (L) | 32 - 43 mmHg | [facility] | | | ARTERIAL, | | | [facility] | | | POC | | | [facility] | | | | | | OF CARE | | | | | | TESTS | | + + + + + + | PH | 7.54 (H) | 7.37 - 7.44 | [facility] | | | ART[facility], | | | [facility] | | | POC | | | [facility] | | | | | | OF CARE | | | | | | TESTS | | + + + + + + | O2 SAT | 98.8 (H) | 92.0 - 98.0 % | [facility] | | | ART[facility], | | | [place] | | | POC | | | [facility] | | | | | | OF CARE | | | | | | TESTS | | + + + + + + | PO2 | 103 | 72 - 104 mmHg | [facility] | | | ARTERIAL, | | | [place] | | | POC | | | [facility] | | | | | | OF CARE | | | | | | TESTS | | + + + + + + | BASE EXCESS | 4.5 | | [facility] | | | ART, POC | | | [facility] | | | | | | [facility] | | | | | | OF CARE | | | | | | TESTS | | + + + + + + | PAO2/FIO2 | 103.0 (L) | >300 mmHg | [facility] | | | RATIO, POC | | | [facility] | | | | | | [facility] | | | | | | OF CARE | | | | | | TESTS | | + + + + + + | SODIUM, WHL | 145 (H) | 134 - 143 | [facility] - | | | BLD, POC | | mmol/L | [facility] | | | | | | [facility] | | | | | | OF CARE | | | | | | TESTS | | + + + + + + | POTASSIUM,W | 4.2 | 3.4 - 5.0 | [facility] - | | | HL BLD, POC | | mmol/L | [facility] | | | | | | [facility] | | | | | | OF CARE | | | | | | TESTS | | + + + + + + | SATISH | 1.09 (L) | 1.14 - 1.32 | [facility] | | | IONIZED | | mmol/L | [facility] | | | CA,WHOLE | | | [facility] | | | BLD,POC | | | OF CARE | | | | | | TESTS | | + + + + + + | HEMOGLOBIN, | 9.1 (L) | 13.5 - 17.5 | [facility] | | | POC | | g/dL | [facility] | | | | | | [place], POINT | | | | | | OF CARE | | | | | | TESTS | | + + + + + + | LACTATE POC | 0.7 | 0.5 - 1.6 | [facility] | | | | | mmol/L | [facility] | | | | | | [place], POINT | | | | | | OF CARE | | | | | | TESTS | | + + + + + + | FIO2 ART, | 100.0 | | [facility] | | | POC | | | [facility] | | | | | | [place], POINT | | | | | | OF CARE | | | | | | TESTS | | + + + + + + | PAT TEMP | 37.5 | | [facility] - | | | ART, POC | | | [facility] | | | | | | [place], [place]INT | | | | | | OF CARE | | | | | | TESTS | | + + + + + + | COMMENT | ecmo fio2 30 | | [facility] - | | | (BLOOD GAS, | | | [facility] | | | POC) | | | [facility] | | | | | | OF CARE | | | | | | TESTS | | + + + + + + + + | Specimen | + + | Blood | + + + + + + + | Performing | Address | City/State/Zipcode | Phone Number | | Organization | | | | + + + + + | [facility] | [address] | [place], [place] | | | [facility] | [address] | [address] | | | TESTS | | | | + + + + + PX-QT-UOO-HB,POC RT (03/19/2017 9:51 AM PDT) + + + + + + | Component | Value | Ref Range | Performed | Pathologist | | | | | At | Signature | + + + + + + | HCO3 | 27.5 | 21 - 28 mmol/L | [facility] | | | ARTERIAL, | | | [facility] | | | POC | | | [facility]UL[facility]IL[facility] | | | | | | OF CARE | | | | | | TESTS | | + + + + + + | PCO2 | 33 | 32 - 43 mmHg | [facility] | | | ARTERIAL, | | | [place] | | | POC | | | [facility] | | | | | | OF CARE | | | | | | TESTS | | + + + + + + | PH | 7.53 (H) | 7.37 - 7.44 | [facility] | | | ARTERIAL, | | | [place] | | | POC | | | [facility]UL[facility]IL[facility] | | | | | | OF CARE | | | | | | TESTS | | + + + + + + | O2 SAT | 91.9 (L) | 92.0 - 98.0 % | [facility] | | | ARTERIAL, | | | [place] | | | POC | | | [facility]UL[facility]IL[facility] | | | | | | OF CARE | | | | | | TESTS | | + + + + + + | PO2 | 54 (L) | 72 - 104 mmHg | [facility] | | | ARTERIAL, | | | [place] | | | POC | | | [facility]UL[facility]IL[facility] | | | | | | OF CARE | | | | | | TESTS | | + + + + + + | BASE EXCESS | 4.8 | | [facility] | | | ART, POC | | | [facility] | | | | | | [facility]IL[facility] | | | | | | OF CARE | | | | | | TESTS | | + + + + + + | PAO2/FIO2 | 54.2 (L) | >300 mmHg | [facility] - | | | RATIO, POC | | | [facility] | | | | | | [facility] | | | | | | OF CARE | | | | | | TESTS | | + + + + + + | SODIUM, WHL | 144 (H) | 134 - 143 | [facility] - | | | BLD, POC | | mmol/L | [facility] | | | | | | JULIANN SIL[facility] | | | | | | OF CARE | | | | | | TESTS | | + + + + + + | POTASSIUM,W | 4.2 | 3.4 - 5.0 | [facility] - | | | HL BLD, POC | | mmol/L | [facility] | | | | | | [facility] | | | | | | OF CARE | | | | | | TESTS | | + + + + + + | SATISH | 1.07 (L) | 1.14 - 1.32 | [facility] - | | | IONIZED | | mmol/L | [facility] | | | CA,WHOLE | | | [facility] | | | BLD,POC | | | OF CARE | | | | | | TESTS | | + + + + + + | HEMOGLOBIN, | 9.0 (L) | 13.5 - 17.5 | [facility] - | | | POC | | g/dL | [facility] | | | | | | [facility] | | | | | | OF CARE | | | | | | TESTS | | + + + + + + | LACTATE POC | 0.6 | 0.5 - 1.6 | [facility] - | | | | | mmol/L | [facility] | | | | | | [facility]ULIANN [facility]IL[facility] | | | | | | OF CARE | | | | | | TESTS | | + + + + + + | FIO2 ART, | 100.0 | | [facility] - | | | POC | | | [facility] | | | | | | [facility] | | | | | | OF CARE | | | | | | TESTS | | + + + + + + | PAT TEMP | 37.5 | | [facility] - | | | ART, POC | | | [facility] | | | | | | [facility]ULIANN [facility] | | | | | | OF CARE | | | | | | TESTS | | + + + + + + + + | Specimen | + + | Blood | + + + + + + + | Performing | Address | City/State/Zipcode | Phone Number | | Organization | | | | + + + + + | [facility] | [address] | [place], [place] | | | JULIANN SILVA OF [place] | [address] | [address] | | | TESTS | | | | + + + + + PRODUCT - RED CELLS LEUKOREDUCED (03/19/2017 9:21 AM PDT) + + + + + + | Component | Value | Ref Range | Performed | Pathologist | | | | | At | Signature | + + + + + + | PRODUCT | -1 RED BLOOD CELL | | [facility] | | | DESCRIPTION | ADENINE-SALINE ADDED | | LABORATORY | | | | LEUKOCYTE | | SERVICES, | | | | | | TRANSFUSION | | | | | | MEDICINE | | + + + + + + | PRODUCT | [id number] | | [facility] | | | UNIT # | | | LABORATORY | | | | | | SERVICES, | | | | | | TRANSFUSION | | | | | | MEDICINE | | + + + + + + | UNIT ABO | O | | [facility] | | | | | | LABORATORY | | | | | | SERVICES, | | | | | | TRANSFUSION | | | | | | MEDICINE | | + + + + + + | UNIT RH | POS | | [facility] | | | | | | LABORATORY | | | | | | SERVICES, | | | | | | TRANSFUSION | | | | | | MEDICINE | | + + + + + + | STATUS OF | Returned to Blood Bank | | [facility] | | | UNIT | | | LABORATORY | | | | | | SERVICES, | | | | | | TRANSFUSION | | | | | | MEDICINE | | + + + + + + | EXPIRATION | [id number] | | [facility] | | | DATE | | | LABORATORY | | | | | | SERVICES, | | | | | | TRANSFUSION | | | | | | MEDICINE | | + + + + + + | BLOOD TYPE | 5100 | | [facility] | | | BARCODE | | | LABORATORY | | | | | | SERVICES, | | | | | | TRANSFUSION | | | | | | MEDICINE | | + + + + + + | BLOOD | [id number] | | [facility] | | | PRODUCT | | | LABORATORY | | | CODE | | | SERVICES, | | | | | | TRANSFUSION | | | | | | MEDICINE | | + + + + + + + + | Specimen | + + | | + + + + + + + | Performing | Address | City/State/Zipcode | Phone Number | | Organization | | | | + + + + + | [facility] | [address] | [place] [address] | | | SERVICES, | [address] | | | | TRANSFUSION MEDICINE | | | | + + + + + PRODUCT - RED CELLS LEUKOREDUCED (03/19/2017 9:21 AM PDT) + + + + + + | Component | Value | Ref Range | Performed | Pathologist | | | | | At | Signature | + + + + + + | PRODUCT | -3 RED BLOOD CELLS | | [facility] | | | DESCRIPTION | ADENINE-SALINE ADDED | | LABORATORY | | | | LEUKOCY | | SERVICES, | | | | | | TRANSFUSION | | | | | | MEDICINE | | + + + + + + | PRODUCT | [id number] | | [facility] | | | UNIT # | | | LABORATORY | | | | | | SERVICES, | | | | | | TRANSFUSION | | | | | | MEDICINE | | + + + + + + | UNIT ABO | O | | [facility] | | | | | | LABORATORY | | | | | | SERVICES, | | | | | | TRANSFUSION | | | | | | MEDICINE | | + + + + + + | UNIT RH | POS | | [facility] | | | | | | LABORATORY | | | | | | SERVICES, | | | | | | TRANSFUSION | | | | | | MEDICINE | | + + + + + + | STATUS OF | Returned to Blood Bank | | [facility] | | | UNIT | | | LABORATORY | | | | | | SERVICES, | | | | | | TRANSFUSION | | | | | | MEDICINE | | + + + + + + | EXPIRATION | [id number] | | [facility] | | | DATE | | | LABORATORY | | | | | | SERVICES, | | | | | | TRANSFUSION | | | | | | MEDICINE | | + + + + + + | BLOOD TYPE | 5100 | | [facility] | | | BARCODE | | | LABORATORY | | | | | | SERVICES, | | | | | | TRANSFUSION | | | | | | MEDICINE | | + + + + + + | BLOOD | [id number] | | [facility] | | | PRODUCT | | | LABORATORY | | | CODE | | | SERVICES, | | | | | | TRANSFUSION | | | | | | MEDICINE | | + + + + + + + + | Specimen | + + | | + + + + + + + | Performing | Address | City/State/Zipcode | Phone Number | | Organization | | | | + + + + + | [facility] | [address] | [place] [address] | | | SERVICES, | [address] | | | | TRANSFUSION MEDICINE | | | | + + + + + PRODUCT - RED CELLS LEUKOREDUCED (03/19/2017 9:21 AM PDT) + + + + + + | Component | Value | Ref Range | Performed | Pathologist | | | | | At | Signature | + + + + + + | PRODUCT | -1 RED BLOOD CELL | | [facility] | | | DESCRIPTION | ADENINE-SALINE ADDED | | LABORATORY | | | | LEUKOCYTE | | SERVICES, | | | | | | TRANSFUSION | | | | | | MEDICINE | | + + + + + + | PRODUCT | [id number] | | [facility] | | | UNIT # | | | LABORATORY | | | | | | SERVICES, | | | | | | TRANSFUSION | | | | | | MEDICINE | | + + + + + + | UNIT ABO | O | | [facility] | | | | | | LABORATORY | | | | | | SERVICES, | | | | | | TRANSFUSION | | | | | | MEDICINE | | + + + + + + | UNIT RH | POS | | [facility] | | | | | | LABORATORY | | | | | | SERVICES, | | | | | | TRANSFUSION | | | | | | MEDICINE | | + + + + + + | STATUS OF | Returned to Blood Bank | | [facility] | | | UNIT | | | LABORATORY | | | | | | SERVICES, | | | | | | TRANSFUSION | | | | | | MEDICINE | | + + + + + + | EXPIRATION | [id number] | | [facility] | | | DATE | | | LABORATORY | | | | | | SERVICES, | | | | | | TRANSFUSION | | | | | | MEDICINE | | + + + + + + | BLOOD TYPE | 5100 | | [facility] | | | BARCODE | | | LABORATORY | | | | | | SERVICES, | | | | | | TRANSFUSION | | | | | | MEDICINE | | + + + + + + | BLOOD | [id number] | | [facility] | | | PRODUCT | | | LABORATORY | | | CODE | | | SERVICES, | | | | | | TRANSFUSION | | | | | | MEDICINE | | + + + + + + + + | Specimen | + + | | + + + + + + + | Performing | Address | City/State/Zipcode | Phone Number | | Organization | | | | + + + + + | [facility] | [address] | [place] [address] | | | SERVICES, | [address] | | | | TRANSFUSION MEDICINE | | | | + + + + + PRODUCT - RED CELLS LEUKOREDUCED (03/19/2017 9:21 AM PDT) + + + + + + | Component | Value | Ref Range | Performed | Pathologist | | | | | At | Signature | + + + + + + | PRODUCT | -1 RED BLOOD CELL | | [facility] | | | DESCRIPTION | ADENINE-SALINE ADDED | | LABORATORY | | | | LEUKOCYTE | | SERVICES, | | | | | | TRANSFUSION | | | | | | MEDICINE | | + + + + + + | PRODUCT | [id number] | | [facility] | | | UNIT # | | | LABORATORY | | | | | | SERVICES, | | | | | | TRANSFUSION | | | | | | MEDICINE | | + + + + + + | UNIT ABO | O | | [facility] | | | | | | LABORATORY | | | | | | SERVICES, | | | | | | TRANSFUSION | | | | | | MEDICINE | | + + + + + + | UNIT RH | POS | | [facility] | | | | | | LABORATORY | | | | | | SERVICES, | | | | | | TRANSFUSION | | | | | | MEDICINE | | + + + + + + | STATUS OF | Returned to Blood Bank | | [facility] | | | UNIT | | | LABORATORY | | | | | | SERVICES, | | | | | | TRANSFUSION | | | | | | MEDICINE | | + + + + + + | EXPIRATION | [id number] | | [facility] | | | DATE | | | LABORATORY | | | | | | SERVICES, | | | | | | TRANSFUSION | | | | | | MEDICINE | | + + + + + + | BLOOD TYPE | 5100 | | [facility] | | | BARCODE | | | LABORATORY | | | | | | SERVICES, | | | | | | TRANSFUSION | | | | | | MEDICINE | | + + + + + + | BLOOD | [id number] | | [facility] | | | PRODUCT | | | LABORATORY | | | CODE | | | SERVICES, | | | | | | TRANSFUSION | | | | | | MEDICINE | | + + + + + + + + | Specimen | + + | | + + + + + + + | Performing | Address | City/State/Zipcode | Phone Number | | Organization | | | | + + + + + | [facility] | [address] | [place] [address] | | | SERVICES, | [address] | | | | TRANSFUSION MEDICINE | | | | + + + + + X-RAY PORTABLE CHEST 1 VIEW (03/19/2017 9:13 AM PDT) + + | Specimen | + + | | + + + + + | Narrative | Performed At | + + + | EXAM: AL CHEST 1 VIEW HISTORY: ECMO. Evaluate cannula | [facility] | | placement. COMPARISON: Yesterday FINDINGS: Endotracheal | RADIOLOGY VOICE | | tube, [place] catheter and enteric tube remain in place. Inferior | RECOGNITION | | approach ECMO tip projects in the lower superior vena cava. | | | Cardiomediastinal silhouette is stable. There is no definite | | | pulmonary edema. Right upper lobe patchy groundglass and | | | consolidation has decreased. There is no pneumothorax. | | | IMPRESSION: Support equipment as above. Decreased right upper | | | lobe patchy ground glass and mild consolidative opacities. I | | | have personally reviewed the images and, if necessary, edited the | | | report. I agree with the report as now presented. | | + + + + + | Procedure Note | + + | Arely Gibson Res In Interface - 03/19/2017 9:17 AM PDT EXAM: AL CHEST 1 | | VIEW HISTORY: ECMO. Evaluate cannula placement.COMPARISON: YesterdayFINDINGS: | | Endotracheal tube, [place]лег catheter and enteric tube remain in place. Inferior | | approach ECMO tip projects in the lower superior vena cava.Cardiomediastinal silhouette | | is stable. There is no definite pulmonary edema. Right upper lobe patchy groundglass | | and consolidation has decreased. There is no pneumothorax.IMPRESSION: Support equipment | | as above.Decreased right upper lobe patchy ground glass and mild consolidative | | opacities.I have personally reviewed the images and, if necessary, edited the report. I | | agree with the report as now presented. | | | |Cardiomediastinal silhouette is stable. There is no definite pulmonary edema. Right upper lobe patchy groundglass and consolidation has decreased. There is no pneumothorax. | | | |IMPRESSION: | | | |Support equipment as above. | | | |Decreased right upper lobe patchy ground glass and mild consolidative opacities. | | | | | |I have personally reviewed the images and, if necessary, edited the report. I agree with t he report as now presented. | + + + +---------+ + + | Performing | Address | City/State/Zipcode | Phone Number | | Organization | | | | + +---------+ + + | [facility] | | | | | VOICE RECOGNITION | | | | + +---------+ + + CAPILLARY BLOOD GLUCOSE (NO CHG), POC (03/19/2017 8:59 AM PDT) + +---------+ + + + | Component | Value | Ref Range | Performed | Pathologist | | | | | At | Signature | + +---------+ + + + | BLOOD | 135 (H) | 70 - 99 mg/dL | [facility] - | | | GLUCOSE, | | | [facility] | | | POC | | | [facility] | | | | | | OF CARE | | | | | | TESTS | | + +---------+ + + + + + | Specimen | + + | | + + + + + + + | Performing | Address | City/State/Zipcode | Phone Number | | Organization | | | | + + + + + | [facility] | [address] | [place], [place] | | | [facility] | [facility] | [address] | | | TESTS | | | | + + + + + CAPILLARY BLOOD GLUCOSE (NO CHG), POC (03/19/2017 8:04 AM PDT) + +---------+ + + + | Component | Value | Ref Range | Performed | Pathologist | | | | | At | Signature | + +---------+ + + + | BLOOD | 129 (H) | 70 - 99 mg/dL | [facility] - | | | GLUCOSE, | | | [facility] | | | POC | | | JULI[facility] SILVA | | | | | | OF CARE | | | | | | TESTS | | + +---------+ + + + + + | Specimen | + + | | + + + + + + + | Performing | Address | City/State/Zipcode | Phone Number | | Organization | | | | + + + + + | [facility] | [address] | [place], [place] | | | [facility] | [address] | [address] | | | TESTS | | | | + + + + + CK, PLASMA (03/19/2017 7:03 AM PDT) + + + + + + | Component | Value | Ref Range | Performed | Pathologist | | | | | At | Signature | + + + + + + | CK | 9,983 (H) | 49 - 397 U/L | [facility] | | | | | | LABORATORY | | | | | | SERVICES, | | | | | | CORE | | + + + + + + + + | Specimen | + + | Blood | + + + + + + + | Performing | Address | City/State/Zipcode | Phone Number | | Organization | | | | + + + + + | [facility] | [address] | [place] [address] | | | ИРИНА ANTOINE | [address] | | | + + + + + CAPILLARY BLOOD GLUCOSE (NO CHG), POC (03/19/2017 7:02 AM PDT) + +---------+ + + + | Component | Value | Ref Range | Performed | Pathologist | | | | | At | Signature | + +---------+ + + + | BLOOD | 139 (H) | 70 - 99 mg/dL | [facility] - | | | GLUCOSE, | | | [facility] | | | POC | | | J[facility] | | | | | | OF CARE | | | | | | TESTS | | + +---------+ + + + + + | Specimen | + + | | + + + + + + + | Performing | Address | City/State/Zipcode | Phone Number | | Organization | | | | + + + + + | [facility] | [address] | [place], [place] | | | [facility] | [address] | [address] | | | TESTS | | | | + + + + + CAPILLARY BLOOD GLUCOSE (NO CHG), POC (03/19/2017 6:09 AM PDT) + +---------+ + + + | Component | Value | Ref Range | Performed | Pathologist | | | | | At | Signature | + +---------+ + + + | BLOOD | 133 (H) | 70 - 99 mg/dL | [facility] - | | | GLUCOSE, | | | [facility] | | | POC | | | J[facility] | | | | | | OF CARE | | | | | | TESTS | | + +---------+ + + + + + | Specimen | + + | | + + + + + + + | Performing | Address | City/State/Zipcode | Phone Number | | Organization | | | | + + + + + | [facility] | [address] | [place], [place] | | | JULIANN SILVA OF [place] | [facility] | [address] | | | TESTS | | | | + + + + + CAPILLARY BLOOD GLUCOSE (NO CHG), POC (03/19/2017 5:03 AM PDT) + +---------+ + + + | Component | Value | Ref Range | Performed | Pathologist | | | | | At | Signature | + +---------+ + + + | BLOOD | 137 (H) | 70 - 99 mg/dL | [facility] - | | | GLUCOSE, | | | [facility] | | | POC | | | [place] | | | | | | OF CARE | | | | | | TESTS | | + +---------+ + + + + + | Specimen | + + | | + + + + + + + | Performing | Address | City/State/Zipcode | Phone Number | | Organization | | | | + + + + + | [facility] | [address] | [place], [place] | | | [facility] | [facility] | [address] | | | TESTS | | | | + + + + + CAPILLARY BLOOD GLUCOSE (NO CHG), POC (03/19/2017 4:03 AM PDT) + +---------+ + + + | Component | Value | Ref Range | Performed | Pathologist | | | | | At | Signature | + +---------+ + + + | BLOOD | 141 (H) | 70 - 99 mg/dL | [facility] - | | | GLUCOSE, | | | [facility] | | | POC | | | [facility] | | | | | | OF CARE | | | | | | TESTS | | + +---------+ + + + + + | Specimen | + + | | + + + + + + + | Performing | Address | City/State/Zipcode | Phone Number | | Organization | | | | + + + + + | [facility] | [address] | [place], [place] | | | [facility] OF [facility] | [address] | [address] | | | TESTS | | | | + + + + + HEPARIN, EITHER STANDARD / LMW, BLOOD (03/19/2017 4:00 AM PDT) + +-------+ + + + | Component | Value | Ref Range | Performed | Pathologist | | | | | At | Signature | + +-------+ + + + | HEPARIN, | 0.51 | U/mL | [facility] | | | STD LMW | | | LABORATORY | | | | | | SERVICES, | | | | | | CORE | | + +-------+ + + + + + | Specimen | + + | Blood | + + + + + | Narrative | Performed At | + + + | LVAD/Advanced Heart Failure Heparin Protocol Heparin level 6 | [facility] | | hrs after every heparin rate change; If heparin level within target | LABORATORY | | range for 2 consecutive results, recheck every AM. Heparin, Either | SERVICES, CORE | | STD/LMW - Therapeutic Ranges: Heparin, Unfractionated: 0.35 - | | | 0.70 U/mL Enoxaparin, LMWH: 0.70 - 1.20 U/mL | | | Dalteparin, LMWH: 0.70 - 1.20 U/mL Tinzaparin, | | | LMWH: Therapeutic range not established. | | | Preliminary | | | studies suggest range | | | similar to | | | dalteparin. Clinical | | | correlation | | | required. Heparin levels may be unreliable for: | | | Total bilirubin | | | >28.8 mg/dL | | | Triglycerides | | | >690 mg/dL or | | | Moderate to Gross Hemolysis | | + + + + + + + + | Performing | Address | City/State/Zipcode | Phone Number | | Organization | | | | + + + + + | [facility] | [address] | [place] [address] | | | SERVICES, CORE | [address] | | | + + + + + CAPILLARY BLOOD GLUCOSE (NO CHG), POC (03/19/2017 3:08 AM PDT) + +---------+ + + + | Component | Value | Ref Range | Performed | Pathologist | | | | | At | Signature | + +---------+ + + + | BLOOD | 139 (H) | 70 - 99 mg/dL | [facility] - | | | GLUCOSE, | | | [facility] | | | POC | | | [facility] | | | | | | OF CARE | | | | | | TESTS | | + +---------+ + + + + + | Specimen | + + | | + + + + + + + | Performing | Address | City/State/Zipcode | Phone Number | | Organization | | | | + + + + + | [facility] | [address] | [place], [place] | | | [facility] | [address] | [address] | | | TESTS | | | | + + + + + CAPILLARY BLOOD GLUCOSE (NO CHG), POC (03/19/2017 2:06 AM PDT) + +---------+ + + + | Component | Value | Ref Range | Performed | Pathologist | | | | | At | Signature | + +---------+ + + + | BLOOD | 144 (H) | 70 - 99 mg/dL | [facility] | | | [facility], | | | [facility] | | | POC | | | [facility] | | | | | | OF CARE | | | | | | TESTS | | + +---------+ + + + + + | Specimen | + + | | + + + + + + + | Performing | Address | City/State/Zipcode | Phone Number | | Organization | | | | + + + + + | [facility] | [address] | [place], [place] | | | [facility] | [address] | [phone] | | | TESTS | | | | + + + + + CAPILLARY BLOOD GLUCOSE (NO CHG), POC (03/19/2017 1:19 AM PDT) + +---------+ + + + | Component | Value | Ref Range | Performed | Pathologist | | | | | At | Signature | + +---------+ + + + | BLOOD | 130 (H) | 70 - 99 mg/dL | [facility] | | | [facility], | | | [facility] | | | POC | | | [facility] | | | | | | OF CARE | | | | | | TESTS | | + +---------+ + + + + + | Specimen | + + | | + + + + + + + | Performing | Address | City/State/Zipcode | Phone Number | | Organization | | | | + + + + + | [facility] | [address] | [place], [place] | | | [facility] | [address] | [address] | | | TESTS | | | | + + + + + BLOOD GASES, ARTERIAL - LAB (03/19/2017 1:12 AM PDT) + + + + + + | Component | Value | Ref Range | Performed | Pathologist | | | | | At | Signature | + + + + + + | PAT TEMP | 37.8 | Degree C | [facility] | | | ARTERIAL | | | LABORATORY | | | | | | SERVICES, | | | | | | CORE | | + + + + + + | FIO2 | 1.00 | | [facility] | | | ARTERIAL | | | LABORATORY | | | | | | SERVICES, | | | | | | CORE | | + + + + + + | PH ARTERIAL | 7.41 | 7.37 - 7.44 | [facility] | | | | | | LABORATORY | | | | | | SERVICES, | | | | | | CORE | | + + + + + + | PCO2 | 46 (H) | 32 - 43 mmHg | [facility] | | | ARTERIAL | | | LABORATORY | | | | | | SERVICES, | | | | | | CORE | | + + + + + + | PO2 | 421 (H) | 72 - 104 mmHg | [facility] | | | ARTERIAL | | | LABORATORY | | | | | | SERVICES, | | | | | | CORE | | + + + + + + | HCO3 | 29 (H) | 21 - 28 mmol/L | [facility] | | | ARTERIAL | | | LABORATORY | | | | | | SERVICES, | | | | | | CORE | | + + + + + + | TOTAL CO2 | 30 (H) | 22 - 28 mmol/L | [facility] | | | ARTERIAL | | | LABORATORY | | | | | | SERVICES, | | | | | | CORE | | + + + + + + | BASE EXCESS | 4.0 | mmol/L | [facility] | | | ARTERIAL | | | LABORATORY | | | | | | SERVICES, | | | | | | CORE | | + + + + + + | O2 SAT, | 99.6 (H) | 92.0 - 98.0 % | [facility] | | | ARTERIAL | | | LABORATORY | | | | | | SERVICES, | | | | | | CORE | | + + + + + + | PAO2/FIO2 | 421 | >300 mmHg | [facility] | | | [facility]ATIO | | | LABORATORY | | | | | | SERVICES, | | | | | | CORE | | + + + + + + + + | Specimen | + + | Blood | + + + + + + + | Performing | Address | City/State/Zipcode | Phone Number | | Organization | | | | + + + + + | [facility] | [address] | [place] [address] | | | SERVICES, CORE | [address] | | | + + + + + THROMBELASTOGRAPH, POC (03/19/2017 1:12 AM PDT) + + + + + + | Component | Value | Ref Range | Performed | Pathologist | | | | | At | Signature | + + + + + + | R - | 11.0 (A) | 5 - 10 Minutes | [facility] | | | CITRATED | | | [facility] | | | | | | [facility] | | | | | | OF CARE | | | | | | TESTS | | + + + + + + | K - | 1.8 | 1 - 3 Minutes | [facility] - | | | CITRATED | | | [facility] | | | | | | [facility] | | | | | | OF CARE | | | | | | TESTS | | + + + + + + | ANGLE - | 71.1 | 53 - 72 Degrees | [facility] - | | | CITRATED | | | [facility] | | | | | | [facility] | | | | | | OF CARE | | | | | | TESTS | | + + + + + + | MAXIMUM | 78.5 (A) | 55 - 70 mm | [facility] - | | | AMPLITUDE - | | | [place] | | | CITRATED | | | [facility] | | | | | | OF CARE | | | | | | TESTS | | + + + + + + | LY 30 | 0.0 | 0 - 8 % | [facility] | | | | | | [facility] | | | | | | [facility] | | | | | | OF CARE | | | | | | TESTS | | + + + + + + | CLOT INDEX | -0.6 | -3 - 3 | [facility] | | | | | | [place] | | | | | | [facility] | | | | | | OF CARE | | | | | | TESTS | | + + + + + + + + | Specimen | + + | Blood | + + + + + | Narrative | Performed At | + + + | TEG Interpretation Note 04/17/2017 TEG reviewed: R time 11 (r | [facility] - | | 5-10) Angle 71.1 (r 53-72) MA 78.5 (r 50-70) Ly30 0.0 (r 0-8) | [facility], | | TEG parameters are abnormal and reveal delayed clot initiation and | POINT OF CARE | | mild increase in final clot strength. See Media tab in Chart | TESTS | | Review for graph. Electronically signed on 04/17/2017 at 9:05 AM | | | Marino Carvajal MD. | | + + + + + + + + | Performing | Address | City/State/Zipcode | Phone Number | | Organization | | | | + + + + + | [facility] | [address] | [place], [place] | | | [facility] | [facility] | [address] | | | TESTS | | | | + + + + + CBC AND AUTO DIFF (03/19/2017 1:11 AM PDT) + + + + + + | Component | Value | Ref Range | Performed | Pathologist | | | | | At | Signature | + + + + + + | WHITE CELL | 12.08 (H) | 3.50 - 10.80 | [facility] | | | COUNT | | K/cu mm | LABORATORY | | | | | | SERVICES, | | | | | | CORE | | + + + + + + | RED CELL | 2.96 (L) | 4.50 - 6.00 | [facility] | | | COUNT | | M/cu mm | LABORATORY | | | | | | SERVICES, | | | | | | CORE | | + + + + + + | HEMOGLOBIN | 9.5 (L) | 13.5 - 17.5 | [facility] | | | | | g/dL | LABORATORY | | | | | | SERVICES, | | | | | | CORE | | + + + + + + | HEMATOCRIT | 28.4 (L) | 41.0 - 53.0 % | [facility] | | | | | | LABORATORY | | | | | | SERVICES, | | | | | | CORE | | + + + + + + | MCV | 95.9 | 80.0 - 96.0 fL | [facility] | | | | | | LABORATORY | | | | | | SERVICES, | | | | | | CORE | | + + + + + + | MCHC | 33.5 | 33.0 - 35.5 | [facility] | | | | | g/dL | LABORATORY | | | | | | SERVICES, | | | | | | CORE | | + + + + + + | RDW SD | 50.8 (H) | 35.1 - 46.3 fL | [facility] | | | | | | LABORATORY | | | | | | SERVICES, | | | | | | CORE | | + + + + + + | PLATELET | 104 (L)Comment: Giant | 150 - 400 K/cu | [facility] | | | COUNT | platelets present. Macro | mm | LABORATORY | | | | platelets present. | | SERVICES, | | | | | | CORE | | + + + + + + | MPV | 11.0 | 9.7 - 12.3 fL | [facility] | | | | | | LABORATORY | | | | | | SERVICES, | | | | | | CORE | | + + + + + + | NRBC% | 0.2 | 0.0 - 0.3 % | [facility] | | | | | | LABORATORY | | | | | | SERVICES, | | | | | | CORE | | + + + + + + | NRBC# | 0.03 (H) | 0.00 - 0.02 | [facility] | | | | | K/cu mm | LABORATORY | | | | | | SERVICES, | | | | | | CORE | | + + + + + + | NEUTROPHIL | 74.3 (H) | 50.0 - 70.0 % | [facility] | | | % | | | LABORATORY | | | | | | SERVICES, | | | | | | CORE | | + + + + + + | LYMPHOCYTE | 11.1 (L) | 18.0 - 42.0 % | [facility] | | | % | | | LABORATORY | | | | | | SERVICES, | | | | | | CORE | | + + + + + + | MONOCYTE % | 12.3 (H) | 3.5 - 9.0 % | [facility] | | | | | | LABORATORY | | | | | | SERVICES, | | | | | | CORE | | + + + + + + | EOS % | 0.2 (L) | 1.0 - 3.0 % | [facility] | | | | | | LABORATORY | | | | | | SERVICES, | | | | | | CORE | | + + + + + + | BASO % | 0.2 | 0.0 - 2.0 % | [facility] | | | | | | LABORATORY | | | | | | SERVICES, | | | | | | CORE | | + + + + + + | IG% | 1.9 (H)Comment: Immature | 0.0 - 0.6 % | [facility] | | | | Granulocytes (IG) | | LABORATORY | | | | include metamyelocytes, | | SERVICES, | | | | myelocytes and | | CORE | | | | promyelocytes. Bands | | | | | | are not included in the | | | | | | IG count. Bands are | | | | | | included in the | | | | | | neutrophil count. | | | | + + + + + + | NEUTROPHIL | 8.98 (H) | 1.80 - 7.70 | [facility] | | | # | | K/cu mm | LABORATORY | | | | | | SERVICES, | | | | | | CORE | | + + + + + + | LYMPHOCYTE | 1.34 | 1.00 - 4.80 | [facility] | | | # | | K/cu mm | LABORATORY | | | | | | SERVICES, | | | | | | CORE | | + + + + + + | MONOCYTE # | 1.49 (H) | 0.10 - 0.90 | [facility] | | | | | K/cu mm | LABORATORY | | | | | | SERVICES, | | | | | | CORE | | + + + + + + | EOS # | 0.02 | 0.00 - 0.50 | [facility] | | | | | K/cu mm | LABORATORY | | | | | | SERVICES, | | | | | | CORE | | + + + + + + | BASO # | 0.02 | 0.00 - 0.10 | [facility] | | | | | K/cu mm | LABORATORY | | | | | | SERVICES, | | | | | | CORE | | + + + + + + | IG# | 0.23 (H) | 0.00 - 0.03 | [facility] | | | | | K/cu mm | LABORATORY | | | | | | SERVICES, | | | | | | CORE | | + + + + + + + + | Specimen | + + | Blood | + + + + + | Narrative | Performed At | + + + | Immature Granulocytes (IG) include metamyelocytes, myelocytes | [facility] | | and promyelocytes. Bands are not included in the IG count. Bands | LABORATORY | | are included in the neutrophil count. | SERVICES, CORE | + + + + + + + + | Performing | Address | City/State/Zipcode | Phone Number | | Organization | | | | + + + + + | [facility] | [address] | [place] [address] | | | SERVICES, CORE | [address] | | | + + + + + LACTATE (03/19/2017 1:11 AM PDT) + +-------+ + + + | Component | Value | Ref Range | Performed | Pathologist | | | | | At | Signature | + +-------+ + + + | LACTATE | 1.0 | mmol/L | [facility] | | | | | | LABORATORY | | | | | | SERVICES, | | | | | | CORE | | + +-------+ + + + + + | Specimen | + + | Blood | + + + + + | Narrative | Performed At | + + + | Reference Range: Venous blood: 0.5 - 2.2 mmol/L Critical | [facility] | | >= 4.0 mmol/L Arterial blood: 0.5 - 1.6 mmol/L Critical >= 4.0 | LABORATORY | | mmol/L | SERVICES, CORE | + + + + + + + + | Performing | Address | City/State/Zipcode | Phone Number | | Organization | | | | + + + + + | [facility] | [address] | [place] [address] | | | SERVICES, CORE | [address] | | | + + + + + MAGNESIUM, PLASMA (03/19/2017 1:11 AM PDT) + +---------+ + + + | Component | Value | Ref Range | Performed | Pathologist | | | | | At | Signature | + +---------+ + + + | MAGNESIUM,P | 2.6 (H) | 1.8 - 2.5 mg/dL | [facility] | | | LASMA | | | LABORATORY | | | | | | SERVICES, | | | | | | CORE | | + +---------+ + + + + + | Specimen | + + | Blood | + + + + + | Narrative | Performed At | + + + | 2 hrs after intravenous magnesium repletion if magnesium < 1.6. | [facility] | | | LABORATORY | | | SERVICES, CORE | + + + + + + + + | Performing | Address | City/State/Zipcode | Phone Number | | Organization | | | | + + + + + | [facility] | [address] | [place] [address] | | | SERVICES, CORE | [address] | | | + + + + + BLOOD GASES, VENOUS - LAB (03/19/2017 1:11 AM PDT) + +--------+ + + + | Component | Value | Ref Range | Performed | Pathologist | | | | | At | Signature | + +--------+ + + + | PH VENOUS | 7.39 | 7.35 - 7.45 | [facility] | | | | | | LABORATORY | | | | | | ARASH, | | | | | | CORE | | + +--------+ + + + | PCO2 VENOUS | 51 (H) | 35 - 50 mmHg | [facility] | | | | | | LABORATORY | | | | | | SERVICES, | | | | | | CORE | | + +--------+ + + + | PO2 VENOUS | 32 | 30 - 55 mmHg | [facility] | | | | | | LABORATORY | | | | | | SERVICES, | | | | | | CORE | | + +--------+ + + + | HCO3 VENOUS | 30 (H) | 22 - 28 mmol/L | [facility] | | | | | | LABORATORY | | | | | | SERVICES, | | | | | | CORE | | + +--------+ + + + | BASE EXCESS | 4.1 | mmol/L | [facility] | | | VENOUS | | | LABORATORY | | | | | | SERVICES, | | | | | | CORE | | + +--------+ + + + | O2 SAT, | 55.3 | No range has | [facility] | | | VENOUS | | been | LABORATORY | | | | | established % | SERVICES, | | | | | | CORE | | + +--------+ + + + | TOTAL CO2 | 31 (H) | 23 - 29 mmol/L | [facility] | | | VENOUS | | | LABORATORY | | | | | | SERVICES, | | | | | | CORE | | + +--------+ + + + + + | Specimen | + + | Blood | + + + + + + + | Performing | Address | City/State/Zipcode | Phone Number | | Organization | | | | + + + + + | [facility] | [address] | [place] [address] | | | SERVICES, CORE | [address] | | | + + + + + HEMOGLOBIN, PLASMA FREE (03/19/2017 1:11 AM PDT) + +--------+ + + + | Component | Value | Ref Range | Performed | Pathologist | | | | | At | Signature | + +--------+ + + + | HEMOGLOBIN, | 20 (H) | <=10 mg/dL | [facility] | | | PLASMA | | | LABORATORY | | | FREE | | | SERVICES, | | | | | | CORE | | + +--------+ + + + + + | Specimen | + + | Blood | + + + + + + + | Performing | Address | City/State/Zipcode | Phone Number | | Organization | | | | + + + + + | [facility] | [address] | [place] [address] | | | SERVICES, CORE | [address] | | | + + + + + LDH TOTAL, PLASMA (03/19/2017 1:11 AM PDT) + +---------+ + + + | Component | Value | Ref Range | Performed | Pathologist | | | | | At | Signature | + +---------+ + + + | LD TOTAL, | 970 (H) | <=250 U/L | [facility] | | | PLASMA | | | LABORATORY | | | | | | SERVICES, | | | | | | CORE | | + +---------+ + + + | LD CMNT | No Hemo | | [facility] | | | | | | LABORATORY | | | | | | SERVICES, | | | | | | CORE | | + +---------+ + + + + + | Specimen | + + | Blood | + + + + + | Narrative | Performed At | + + + | 2 hrs after intravenous magnesium repletion if magnesium < 1.6. | [facility] | | | LABORATORY | | | SERVICES, CORE | + + + + + + + + | Performing | Address | City/State/Zipcode | Phone Number | | Organization | | | | + + + + + | [facility] | [address] | [place] [address] | | | SERVICES, CORE | [address] | | | + + + + + RENAL FUNCTION SET (NA,K,CL,CO2,BUN,CREAT,GLUC,CA,PHOS,ALB ) (03/19/2017 1:11 AM PDT) + + + + + + | Component | Value | Ref Range | Performed | Pathologist | | | | | At | Signature | + + + + + + | GLUCOSE, | 143 (H) | 70 - 99 mg/dL | [facility] | | | PLASMA | | | LABORATORY | | | (LAB) | | | SERVICES, | | | | | | CORE | | + + + + + + | BUN, PLASMA | 35 (H) | 6 - 20 mg/dL | [facility] | | | (LAB) | | | LABORATORY | | | | | | SERVICES, | | | | | | CORE | | + + + + + + | CREATININE | 1.39 (H) | 0.70 - 1.30 | [facility] | | | PLASMA | | mg/dL | LABORATORY | | | (LAB) | | | SERVICES, | | | | | | CORE | | + + + + + + | EGFR | >60 | >60 mL/min | [facility] | | | - | | | LABORATORY | | | SLOVENIAN | | | SERVICES, | | | | | | CORE | | + + + + + + | EGFR NON | 52 (L) | >60 mL/min | [facility] | | | -SOREN | | | LABORATORY | | | RICAN | | | SERVICES, | | | | | | CORE | | + + + + + + | SODIUM, | 143 | 136 - 145 | [facility] | | | PLASMA | | mmol/L | LABORATORY | | | (LAB) | | | SERVICES, | | | | | | CORE | | + + + + + + | POTASSIUM, | 4.1 | 3.4 - 5.0 | [facility] | | | PLASMA | | mmol/L | LABORATORY | | | (LAB) | | | SERVICES, | | | | | | CORE | | + + + + + + | CHLORIDE, | 107 | 97 - 108 mmol/L | [facility] | | | PLASMA | | | LABORATORY | | | (LAB) | | | SERVICES, | | | | | | CORE | | + + + + + + | TOTAL CO2, | 28 | 21 - 32 mmol/L | [facility] | | | PLASMA | | | LABORATORY | | | (LAB) | | | SERVICES, | | | | | | CORE | | + + + + + + | CALCIUM, | 7.9 (L) | 8.6 - 10.2 | [facility] | | | PLASMA | | mg/dL | LABORATORY | | | (LAB) | | | SERVICES, | | | | | | CORE | | + + + + + + | CALCIUM(ALB | 9.3 | 8.6 - 10.2 | [facility] | | | CORRECTED) | | mg/dL | LABORATORY | | | | | | SERVICES, | | | | | | CORE | | + + + + + + | ALBUMIN, | 2.2 (L) | 3.5 - 4.7 g/dL | [facility] | | | PLASMA | | | LABORATORY | | | (LAB) | | | SERVICES, | | | | | | CORE | | + + + + + + | PHOSPHORUS, | 3.9 | 2.4 - 4.7 mg/dL | [facility] | | | PLASMA | | | LABORATORY | | | (LAB) | | | SERVICES, | | | | | | CORE | | + + + + + + | POTASSIUM | No Hemo | | [facility] | | | CMNT | | | LABORATORY | | | | | | SERVICES, | | | | | | CORE | | + + + + + + | ANION GAP | 8 | mmol/L | [facility] | | | | | | LABORATORY | | | | | | SERVICES, | | | | | | CORE | | + + + + + + | ANION | 12 (H) | 4 - 11 mmol/L | [facility] | | | GAP(ALB | | | LABORATORY | | | CORRECTED) | | | SERVICES, | | | | | | CORE | | + + + + + + + + | Specimen | + + | Blood | + + + + + | Narrative | Performed At | + + + | Adult glucose reference range change effective 7-12-17. 2 hrs | [facility] | | after intravenous magnesium repletion if magnesium < 1.6. GFR is | LABORATORY | | estimated using the MDRD equation recommended by the National Kidney | SERVICES, CORE | | Disease Education Program. Estimated GFR Interpretive Information: | | | <60 mL/min/1.73 sq m Chronic Kidney | | | Disease <15 mL/min/1.73 sq m Kidney | | | Failure Estimated GFR greater that 60 mL/min/1.73 sq m is of limited | | | clinical value. The MDRD equation is not valid in the following | | | situations: - Patients under 18 years of age - Severe malnutrition | | | or obesity - Vegetarian diet - Rapidly changing kidney function | | + + + + + + + + | Performing | Address | City/State[facility] | Phone Number | | Organization | | | | + + + + + | [facility] | [address] | [place] [address] | | | SERVICES, CORE | [address] | | | + + + + + COAGULOPATHY PANEL (INR,APTT,FIBRINOGEN) (03/19/2017 1:11 AM PDT) + + + + + + | Component | Value | Ref Range | Performed | Pathologist | | | | | At | Signature | + + + + + + | INR | 1.18 | 0.90 - 1.20 INR | [facility] | | | | | | LABORATORY | | | | | | SERVICES, | | | | | | CORE | | + + + + + + | APTT | 75.0 (H) | 26.0 - 36.0 | [facility] | | | | | seconds | LABORATORY | | | | | | SERVICES, | | | | | | CORE | | + + + + + + | FIBRINOGEN | >750 (H) | 200 - 450 mg/dL | [facility] | | | LEVEL | | | LABORATORY | | | | | | SERVICES, | | | | | | CORE | | + + + + + + + + | Specimen | + + | Blood | + + + + + | Narrative | Performed At | + + + | Must order with concurrent CBC INR Therapeutic ranges for full | [facility] | | anticoagulation: INR for Venous | LABORATORY | | Thromboembolism (2.0 - 3.0) INR INR for | SERVICES, CORE | | most patients with mech. valves (2.5 - 3.5) INR APTT | | | Therapeutic Range: (75 - 120) | | | sec Heparin levels of 0.35 - 0.7 U/mL | | + + + + + + + + | Performing | Address | City/State/Zipcode | Phone Number | | Organization | | | | + + + + + | [facility] | [address] | [place] [address] | | | SERVICES, CORE | [address] | | | + + + + + BLOOD GASES, ARTERIAL - LAB (03/19/2017 1:10 AM PDT) + +--------+ + + + | Component | Value | Ref Range | Performed | Pathologist | | | | | At | Signature | + +--------+ + + + | PAT TEMP | 37.8 | Degree C | [facility] | | | ARTERIAL | | | LABORATORY | | | | | | SERVICES, | | | | | | CORE | | + +--------+ + + + | FIO2 | 1.00 | | [facility] | | | ARTERIAL | | | LABORATORY | | | | | | SERVICES, | | | | | | CORE | | + +--------+ + + + | PH ARTERIAL | 7.44 | 7.37 - 7.44 | [facility] | | | | | | LABORATORY | | | | | | SERVICES, | | | | | | CORE | | + +--------+ + + + | PCO2 | 42 | 32 - 43 mmHg | [facility] | | | ARTERIAL | | | LABORATORY | | | | | | SERVICES, | | | | | | CORE | | + +--------+ + + + | PO2 | 68 (L) | 72 - 104 mmHg | [facility] | | | ARTERIAL | | | LABORATORY | | | | | | SERVICES, | | | | | | CORE | | + +--------+ + + + | HCO3 | 28 | 21 - 28 mmol/L | [facility] | | | ARTERIAL | | | LABORATORY | | | | | | SERVICES, | | | | | | CORE | | + +--------+ + + + | TOTAL CO2 | 30 (H) | 22 - 28 mmol/L | [facility] | | | ARTERIAL | | | LABORATORY | | | | | | SERVICES, | | | | | | CORE | | + +--------+ + + + | BASE EXCESS | 4.2 | mmol/L | [facility] | | | ARTERIAL | | | LABORATORY | | | | | | SERVICES, | | | | | | CORE | | + +--------+ + + + | O2 SAT, | 93.1 | 92.0 - 98.0 % | [facility] | | | ARTERIAL | | | LABORATORY | | | | | | SERVICES, | | | | | | CORE | | + +--------+ + + + | PAO2/FIO2 | 68 (L) | >300 mmHg | [facility] | | | RATIO | | | LABORATORY | | | | | | SERVICES, | | | | | | CORE | | + +--------+ + + + + + | Specimen | + + | Blood | + + + + + + + | Performing | Address | City/State/Zipcode | Phone Number | | Organization | | | | + + + + + | [facility] | [address] | [place] [address] | | | SERVICES, CORE | [address] | | | + + + + + CAPILLARY BLOOD GLUCOSE (NO CHG), POC (03/19/2017 12:15 AM PDT) + +---------+ + + + | Component | Value | Ref Range | Performed | Pathologist | | | | | At | Signature | + +---------+ + + + | BLOOD | 138 (H) | 70 - 99 mg/dL | [facility] | | | GLUCOSE, | | | [facility] | | | POC | | | [facility] | | | | | | OF CARE | | | | | | TESTS | | + +---------+ + + + + + | Specimen | + + | | + + + + + + + | Performing | Address | City/State/Zipcode | Phone Number | | Organization | | | | + + + + + | [facility] | [address] | [place], [place] | | | [facility] | [address] | [address] | | | TESTS | | | | + + + + + LAB REPORTS (03/19/2017 12:00 AM PDT) + + + | Narrative | Performed At | + + + | | | + + + POTASSIUM, PLASMA (03/18/2017 11:08 PM PDT) + +---------+ + + + | Component | Value | Ref Range | Performed | Pathologist | | | | | At | Signature | + +---------+ + + + | POTASSIUM, | 4.3 | 3.4 - 5.0 | [facility] | | | PLASMA | | mmol/L | LABORATORY | | | (LAB) | | | SERVICES, | | | | | | CORE | | + +---------+ + + + | POTASSIUM | No Hemo | | [facility] | | | CMNT | | | LABORATORY | | | | | | SERVICES, | | | | | | CORE | | + +---------+ + + + + + | Specimen | + + | Blood | + + + + + | Narrative | Performed At | + + + | 6 hrs after PO potassium administration if potassium < 3; 2 hrs | [facility] | | after intravenous potassium repletion if potassium < 3. | LABORATORY | | | SERVICES, CORE | + + + + + + + + | Performing | Address | City/State/Zipcode | Phone Number | | Organization | | | | + + + + + | [facility] | [address] | [place] [address] | | | SERVICES, CORE | [address] | | | + + + + + CAPILLARY BLOOD GLUCOSE (NO CHG), POC (03/18/2017 11:07 PM PDT) + +---------+ + + + | Component | Value | Ref Range | Performed | Pathologist | | | | | At | Signature | + +---------+ + + + | BLOOD | 162 (H) | 70 - 99 mg/dL | [facility] - | | | GLUCOSE, | | | [facility] | | | POC | | | [facility] | | | | | | OF CARE | | | | | | TESTS | | + +---------+ + + + + + | Specimen | + + | | + + + + + + + | Performing | Address | City/State/Zipcode | Phone Number | | Organization | | | | + + + + + | [facility] | [address] | [place], [place] | | | [facility] | [address] | [address] | | | TESTS | | | | + + + + + CAPILLARY BLOOD GLUCOSE (NO CHG), POC (03/18/2017 10:02 PM PDT) + +---------+ + + + | Component | Value | Ref Range | Performed | Pathologist | | | | | At | Signature | + +---------+ + + + | BLOOD | 143 (H) | 70 - 99 mg/dL | [facility] - | | | GLUCOSE, | | | [facility] | | | POC | | | [facility] | | | | | | OF CARE | | | | | | TESTS | | + +---------+ + + + + + | Specimen | + + | | + + + + + + + | Performing | Address | City/State/Zipcode | Phone Number | | Organization | | | | + + + + + | [facility] | [address] | [place], [place] | | | [facility] | [address] | [address] | | | TESTS | | | | + + + + + HEPARIN, EITHER STANDARD / LMW, BLOOD (03/18/2017 9:58 PM PDT) + +-------+ + + + | Component | Value | Ref Range | Performed | Pathologist | | | | | At | Signature | + +-------+ + + + | HEPARIN, | 0.50 | U/mL | [facility] | | | STD LMW | | | LABORATORY | | | | | | SERVICES, | | | | | | CORE | | + +-------+ + + + + + | Specimen | + + | Blood | + + + + + | Narrative | Performed At | + + + | LVAD/Advanced Heart Failure Heparin Protocol Heparin level 6 | [facility] | | hrs after every heparin rate change; If heparin level within target | LABORATORY | | range for 2 consecutive results, recheck every AM. Heparin, Either | SERVICES, CORE | | STD/LMW - Therapeutic Ranges: Heparin, Unfractionated: 0.35 - | | | 0.70 U/mL Enoxaparin, LMWH: 0.70 - 1.20 U/mL | | | Dalteparin, LMWH: 0.70 - 1.20 U/mL Tinzaparin, | | | LMWH: Therapeutic range not established. | | | Preliminary | | | studies suggest range | | | similar to | | | dalteparin. Clinical | | | correlation | | | required. Heparin levels may be unreliable for: | | | Total bilirubin | | | >28.8 mg/dL | | | Triglycerides | | | >690 mg/dL or | | | Moderate to Gross Hemolysis | | + + + + + + + + | Performing | Address | City/State/Zipcode | Phone Number | | Organization | | | | + + + + + | [facility] | [address] | [place] [address] | | | SERVICES, CORE | [address] | | | + + + + + CAPILLARY BLOOD GLUCOSE (NO CHG), POC (03/18/2017 9:04 PM PDT) + +---------+ + + + | Component | Value | Ref Range | Performed | Pathologist | | | | | At | Signature | + +---------+ + + + | BLOOD | 142 (H) | 70 - 99 mg/dL | [facility] - | | | GLUCOSE, | | | [facility] | | | POC | | | [facility] | | | | | | OF CARE | | | | | | TESTS | | + +---------+ + + + + + | Specimen | + + | | + + + + + + + | Performing | Address | City/State/Zipcode | Phone Number | | Organization | | | | + + + + + | [facility] | [address] | [place], [place] | | | JULIANN SILVA OF [place] | [facility] | [address] | | | TESTS | | | | + + + + + CAPILLARY BLOOD GLUCOSE (NO CHG), POC (03/18/2017 7:58 PM PDT) + +---------+ + + + | Component | Value | Ref Range | Performed | Pathologist | | | | | At | Signature | + +---------+ + + + | BLOOD | 121 (H) | 70 - 99 mg/dL | [facility] - | | | GLUCOSE, | | | [facility] | | | POC | | | [place] [place] | | | | | | OF CARE | | | | | | TESTS | | + +---------+ + + + + + | Specimen | + + | | + + + + + + + | Performing | Address | City/State/Zipcode | Phone Number | | Organization | | | | + + + + + | [facility] | [address] | [place], [place] | | | JULIANN SILVA OF [place] | [facility] | [address] | | | TESTS | | | | + + + + + CAPILLARY BLOOD GLUCOSE (NO CHG), POC (03/18/2017 6:32 PM PDT) + +---------+ + + + | Component | Value | Ref Range | Performed | Pathologist | | | | | At | Signature | + +---------+ + + + | BLOOD | 135 (H) | 70 - 99 mg/dL | [facility] - | | | GLUCOSE, | | | [place] | | | POC | | | [facility]UL[facility] | | | | | | OF CARE | | | | | | TESTS | | + +---------+ + + + + + | Specimen | + + | | + + + + + + + | Performing | Address | City/State/Zipcode | Phone Number | | Organization | | | | + + + + + | [facility] | [address] | [place], [place] | | | JULIANN SILVA OF CARE | [address] | [address] | | | TESTS | | | | + + + + + MAGNESIUM, PLASMA (03/18/2017 6:30 PM PDT) + +---------+ + + + | Component | Value | Ref Range | Performed | Pathologist | | | | | At | Signature | + +---------+ + + + | MAGNESIUM,P | 2.6 (H) | 1.8 - 2.5 mg/dL | [facility] | | | LASMA | | | LABORATORY | | | | | | SERVICES, | | | | | | CORE | | + +---------+ + + + + + | Specimen | + + | Blood | + + + + + | Narrative | Performed At | + + + | 2 hrs after intravenous magnesium repletion if magnesium < 1.6. 6 | [facility] | | hrs after PO potassium administration if potassium < 3; 2 hrs after | LABORATORY | | intravenous potassium repletion if potassium < 3. | SERVICES, CORE | + + + + + + + + | Performing | Address | City/State/Zipcode | Phone Number | | Organization | | | | + + + + + | [facility] | [address] | [place] [address] | | | SERVICES, CORE | [address] | | | + + + + + POTASSIUM, PLASMA (03/18/2017 6:30 PM PDT) + +---------+ + + + | Component | Value | Ref Range | Performed | Pathologist | | | | | At | Signature | + +---------+ + + + | POTASSIUM, | 3.9 | 3.4 - 5.0 | [facility] | | | PLASMA | | mmol/L | LABORATORY | | | (LAB) | | | SERVICES, | | | | | | CORE | | + +---------+ + + + | POTASSIUM | No Hemo | | [facility] | | | CMNT | | | LABORATORY | | | | | | SERVICES, | | | | | | CORE | | + +---------+ + + + + + | Specimen | + + | Blood | + + + + + | Narrative | Performed At | + + + | 2 hrs after intravenous magnesium repletion if magnesium < 1.6. 6 | [facility] | | hrs after PO potassium administration if potassium < 3; 2 hrs after | LABORATORY | | intravenous potassium repletion if potassium < 3. | SERVICES, CORE | + + + + + + + + | Performing | Address | City/State/Zipcode | Phone Number | | Organization | | | | + + + + + | [facility] | [phone] | [place] [address] | | | SERVICES, CORE | [address] | | | + + + + + CAPILLARY BLOOD GLUCOSE (NO CHG), POC (03/18/2017 5:26 PM PDT) + +---------+ + + + | Component | Value | Ref Range | Performed | Pathologist | | | | | At | Signature | + +---------+ + + + | BLOOD | 139 (H) | 70 - 99 mg/dL | [facility] - | | | GLUCOSE, | | | [facility] | | | POC | | | JUL[facility]ANN [facility] | | | | | | OF CARE | | | | | | TESTS | | + +---------+ + + + + + | Specimen | + + | | + + + + + + + | Performing | Address | City/State/Zipcode | Phone Number | | Organization | | | | + + + + + | [facility] | [address] | [place], [place] | | | [facility] | [address] | [address] | | | TESTS | | | | + + + + + HEPARIN, EITHER STANDARD / LMW, BLOOD (03/18/2017 4:45 PM PDT) + +-------+ + + + | Component | Value | Ref Range | Performed | Pathologist | | | | | At | Signature | + +-------+ + + + | HEPARIN, | 0.44 | U/mL | [facility] | | | STD LMW | | | LABORATORY | | | | | | SERVICES, | | | | | | CORE | | + +-------+ + + + + + | Specimen | + + | Blood | + + + + + | Narrative | Performed At | + + + | LVAD/Advanced Heart Failure Heparin Protocol Heparin level 6 | [facility] | | hrs after every heparin rate change; If heparin level within target | LABORATORY | | range for 2 consecutive results, recheck every AM. Heparin, Either | SERVICES, CORE | | STD/LMW - Therapeutic Ranges: Heparin, Unfractionated: 0.35 - | | | 0.70 U/mL Enoxaparin, LMWH: 0.70 - 1.20 U/mL | | | Dalteparin, LMWH: 0.70 - 1.20 U/mL Tinzaparin, | | | LMWH: Therapeutic range not established. | | | Preliminary | | | studies suggest range | | | similar to | | | dalteparin. Clinical | | | correlation | | | required. Heparin levels may be unreliable for: | | | Total bilirubin | | | >28.8 mg/dL | | | Triglycerides | | | >690 mg/dL or | | | Moderate to Gross Hemolysis | | + + + + + + + + | Performing | Address | City/State/Zipcode | Phone Number | | Organization | | | | + + + + + | [facility] | [address] | [place] [address] | | | ARASH, ИРИНА | [address] | | | + + + + + CAPILLARY BLOOD GLUCOSE (NO CHG), POC (03/18/2017 4:22 PM PDT) + +---------+ + + + | Component | Value | Ref Range | Performed | Pathologist | | | | | At | Signature | + +---------+ + + + | BLOOD | 168 (H) | 70 - 99 mg/dL | [facility] | | | GLUCOSE, | | | [facility] | | | POC | | | [facility] | | | | | | OF CARE | | | | | | TESTS | | + +---------+ + + + + + | Specimen | + + | | + + + + + + + | Performing | Address | City/State/Zipcode | Phone Number | | Organization | | | | + + + + + | [facility] | [address] | [place], [place] | | | J[facility]ANN [facility] | [facility] | [address] | | | TESTS | | | | + + + + + CAPILLARY BLOOD GLUCOSE (NO CHG), POC (03/18/2017 3:15 PM PDT) + +---------+ + + + | Component | Value | Ref Range | Performed | Pathologist | | | | | At | Signature | + +---------+ + + + | BLOOD | 151 (H) | 70 - 99 mg/dL | [facility] | | | GLUCOSE, | | | [facility] | | | POC | | | [facility] | | | | | | OF CARE | | | | | | TESTS | | + +---------+ + + + + + | Specimen | + + | | + + + + + + + | Performing | Address | City/State/Zipcode | Phone Number | | Organization | | | | + + + + + | [facility] | [address] | [place], [place] | | | [facility] | [address] | [address] | | | TESTS | | | | + + + + + CK, PLASMA (03/18/2017 2:30 PM PDT) + + + + + + | Component | Value | Ref Range | Performed | Pathologist | | | | | At | Signature | + + + + + + | CK | 10,620 (H) | 49 - 397 U/L | [facility] | | | | | | LABORATORY | | | | | | SERVICES, | | | | | | CORE | | + + + + + + + + | Specimen | + + | Blood | + + + + + + + | Performing | Address | City/State/Zipcode | Phone Number | | Organization | | | | + + + + + | [facility] | [address] | [place] [address] | | | SERVICES, CORE | [address] | | | + + + + + TRIGLYCERIDES, PLASMA (03/18/2017 2:30 PM PDT) + +---------+ + + + | Component | Value | Ref Range | Performed | Pathologist | | | | | At | Signature | + +---------+ + + + | TRIGLYCERID | 246 (H) | <150 mg/dL | [facility] | | | ES | | | LABORATORY | | | | | | SERVICES, | | | | | | CORE | | + +---------+ + + + + + | Specimen | + + | Blood | + + + + + | Narrative | Performed At | + + + | Triglyceride Reference Range: Normal: | [facility] | | <150 mg/dL Borderline High: 150-199 mg/dL | LABORATORY | | High: 200-499 mg/dL Very | [facility] | | High: >=500 mg/dL | | + + + + + + + + | Performing | Address | City/State/Zipcode | Phone Number | | Organization | | | | + + + + + | [facility] | [address] | [place] [address] | | | ИРИНА ANTOINE | [address] | | | + + + + + CAPILLARY BLOOD GLUCOSE (NO CHG), POC (03/18/2017 2:11 PM PDT) + +---------+ + + + | Component | Value | Ref Range | Performed | Pathologist | | | | | At | Signature | + +---------+ + + + | BLOOD | 171 (H) | 70 - 99 mg/dL | [facility] | | | GLUCOSE, | | | [facility] | | | POC | | | [facility] | | | | | | OF CARE | | | | | | TESTS | | + +---------+ + + + + + | Specimen | + + | | + + + + + + + | Performing | Address | City/State/Zipcode | Phone Number | | Organization | | | | + + + + + | [facility] | [address] | [place], [place] | | | [facility] | [address] | [address] | | | TESTS | | | | + + + + + CAPILLARY BLOOD GLUCOSE (NO CHG), POC (03/18/2017 1:07 PM PDT) + +---------+ + + + | Component | Value | Ref Range | Performed | Pathologist | | | | | At | Signature | + +---------+ + + + | BLOOD | 154 (H) | 70 - 99 mg/dL | [facility] - | | | GLUCOSE, | | | [facility] | | | POC | | | [facility] | | | | | | OF CARE | | | | | | TESTS | | + +---------+ + + + + + | Specimen | + + | | + + + + + + + | Performing | Address | City/State/Zipcode | Phone Number | | Organization | | | | + + + + + | [facility] | [address] | [place], [place] | | | [facility]UL[facility] | [address] | [address] | | | TESTS | | | | + + + + + LACTATE (03/18/2017 1:00 PM PDT) + +-------+ + + + | Component | Value | Ref Range | Performed | Pathologist | | | | | At | Signature | + +-------+ + + + | LACTATE | 0.7 | mmol/L | [facility] | | | | | | LABORATORY | | | | | | SERVICES, | | | | | | CORE | | + +-------+ + + + + + | Specimen | + + | Blood | + + + + + | Narrative | Performed At | + + + | Reference Range: Venous blood: 0.5 - 2.2 mmol/L Critical | [facility] | | >= 4.0 mmol/L Arterial blood: 0.5 - 1.6 mmol/L Critical >= 4.0 | LABORATORY | | mmol/L | SERVICES, CORE | + + + + + + + + | Performing | Address | City/State/Zipcode | Phone Number | | Organization | | | | + + + + + | [facility] | [address] | [place] [address] | | | SERVICES, CORE | [address] | | | + + + + + BLOOD GASES, VENOUS - LAB (03/18/2017 1:00 PM PDT) + +--------+ + + + | Component | Value | Ref Range | Performed | Pathologist | | | | | At | Signature | + +--------+ + + + | PH VENOUS | 7.41 | 7.35 - 7.45 | [facility] | | | | | | LABORATORY | | | | | | SERVICES, | | | | | | CORE | | + +--------+ + + + | PCO2 VENOUS | 45 | 35 - 50 mmHg | [facility] | | | | | | LABORATORY | | | | | | SERVICES, | | | | | | CORE | | + +--------+ + + + | PO2 VENOUS | 37 | 30 - 55 mmHg | [facility] | | | | | | LABORATORY | | | | | | SERVICES, | | | | | | CORE | | + +--------+ + + + | HCO3 VENOUS | 28 | 22 - 28 mmol/L | [facility] | | | | | | LABORATORY | | | | | | SERVICES, | | | | | | CORE | | + +--------+ + + + | BASE EXCESS | 3.4 | mmol/L | [facility] | | | VENOUS | | | LABORATORY | | | | | | SERVICES, | | | | | | CORE | | + +--------+ + + + | O2 SAT, | 67.9 | No range has | [facility] | | | VENOUS | | been | LABORATORY | | | | | established % | SERVICES, | | | | | | CORE | | + +--------+ + + + | TOTAL CO2 | 30 (H) | 23 - 29 mmol/L | [facility] | | | VENOUS | | | LABORATORY | | | | | | SERVICES, | | | | | | CORE | | + +--------+ + + + + + | Specimen | + + | Blood | + + + + + + + | Performing | Address | City/State/Zipcode | Phone Number | | Organization | | | | + + + + + | [facility] | [address] | [place] [address] | | | SERVICES, CORE | [address] | | | + + + + + BLOOD GASES, ARTERIAL - LAB (03/18/2017 1:00 PM PDT) + + + + + + | Component | Value | Ref Range | Performed | Pathologist | | | | | At | Signature | + + + + + + | PAT TEMP | 37.7 | Degree C | [facility] | | | ARTERIAL | | | LABORATORY | | | | | | SERVICES, | | | | | | CORE | | + + + + + + | FIO2 | 1.00 | | [facility] | | | ARTERIAL | | | LABORATORY | | | | | | SERVICES, | | | | | | CORE | | + + + + + + | PH ARTERIAL | 7.47 (H) | 7.37 - 7.44 | [facility] | | | | | | LABORATORY | | | | | | SERVICES, | | | | | | CORE | | + + + + + + | PCO2 | 36 | 32 - 43 mmHg | [facility] | | | ARTERIAL | | | LABORATORY | | | | | | SERVICES, | | | | | | CORE | | + + + + + + | PO2 | 494 (H) | 72 - 104 mmHg | [facility] | | | ARTERIAL | | | LABORATORY | | | | | | SERVICES, | | | | | | CORE | | + + + + + + | HCO3 | 26 | 21 - 28 mmol/L | [facility] | | | ARTERIAL | | | LABORATORY | | | | | | SERVICES, | | | | | | CORE | | + + + + + + | TOTAL CO2 | 27 | 22 - 28 mmol/L | [facility] | | | ARTERIAL | | | LABORATORY | | | | | | SERVICES, | | | | | | CORE | | + + + + + + | BASE EXCESS | 2.9 | mmol/L | [facility] | | | ARTERIAL | | | LABORATORY | | | | | | SERVICES, | | | | | | CORE | | + + + + + + | O2 SAT, | 100.0 (H) | 92.0 - 98.0 % | [facility] | | | ARTERIAL | | | LABORATORY | | | | | | SERVICES, | | | | | | CORE | | + + + + + + | PAO2/FIO2 | 494 | >300 mmHg | [facility] | | | RATIO | | | LABORATORY | | | | | | SERVICES, | | | | | | CORE | | + + + + + + + + | Specimen | + + | Blood | + + + + + + + | Performing | Address | City/State/Zipcode | Phone Number | | Organization | | | | + + + + + | [facility] | [address] | [place] [address] | | | SERVICES, CORE | [address] | | | + + + + + CBC (HEMOGRAM) ONLY (03/18/2017 12:59 PM PDT) + + + + + + | Component | Value | Ref Range | Performed | Pathologist | | | | | At | Signature | + + + + + + | WHITE CELL | 11.07 (H) | 3.50 - 10.80 | [facility] | | | COUNT | | K/cu mm | LABORATORY | | | | | | SERVICES, | | | | | | CORE | | + + + + + + | RED CELL | 2.83 (L) | 4.50 - 6.00 | [facility] | | | COUNT | | M/cu mm | LABORATORY | | | | | | SERVICES, | | | | | | CORE | | + + + + + + | HEMOGLOBIN | 9.2 (L) | 13.5 - 17.5 | [facility] | | | | | g/dL | LABORATORY | | | | | | SERVICES, | | | | | | CORE | | + + + + + + | HEMATOCRIT | 27.1 (L) | 41.0 - 53.0 % | [facility] | | | | | | LABORATORY | | | | | | SERVICES, | | | | | | CORE | | + + + + + + | MCV | 95.8 | 80.0 - 96.0 fL | [facility] | | | | | | LABORATORY | | | | | | SERVICES, | | | | | | CORE | | + + + + + + | MCHC | 33.9 | 33.0 - 35.5 | [facility] | | | | | g/dL | LABORATORY | | | | | | SERVICES, | | | | | | CORE | | + + + + + + | RDW SD | 51.3 (H) | 35.1 - 46.3 fL | [facility] | | | | | | LABORATORY | | | | | | SERVICES, | | | | | | CORE | | + + + + + + | PLATELET | 100 (L) | 150 - 400 K/cu | [facility] | | | COUNT | | mm | LABORATORY | | | | | | SERVICES, | | | | | | CORE | | + + + + + + | MPV | Comment: Not Measured | 9.7 - 12.3 fL | [facility] | | | | | | LABORATORY | | | | | | SERVICES, | | | | | | CORE | | + + + + + + | NRBC% | 0.2 | 0.0 - 0.3 % | [facility] | | | | | | LABORATORY | | | | | | SERVICES, | | | | | | CORE | | + + + + + + | NRBC# | 0.02 | 0.00 - 0.02 | [facility] | | | | | K/cu mm | LABORATORY | | | | | | SERVICES, | | | | | | CORE | | + + + + + + + + | Specimen | + + | Blood | + + + + + | Narrative | Performed At | + + + | Must be ordered if Coagulopathy Panel is ordered | [facility] | | | LABORATORY | | | SERVICES, ИРИНА | + + + + + + + + | Performing | Address | City/State/Zipcode | Phone Number | | Organization | | | | + + + + + | [facility] | [address] | [place] [address] | | | ИРИНА ANTOINE | [address] | | | + + + + + RENAL FUNCTION SET (NA,K,CL,CO2,BUN,CREAT,GLUC,CA,PHOS,ALB ) (03/18/2017 12:59 PM PDT) + +---------+ + + + | Component | Value | Ref Range | Performed | Pathologist | | | | | At | Signature | + +---------+ + + + | GLUCOSE, | 163 (H) | 70 - 99 mg/dL | [facility] | | | PLASMA | | | LABORATORY | | | (LAB) | | | SERVICES, | | | | | | CORE | | + +---------+ + + + | BUN, PLASMA | 32 (H) | 6 - 20 mg/dL | [facility] | | | (LAB) | | | LABORATORY | | | | | | SERVICES, | | | | | | CORE | | + +---------+ + + + | CREATININE | 1.23 | 0.70 - 1.30 | [facility] | | | PLASMA | | mg/dL | LABORATORY | | | (LAB) | | | SERVICES, | | | | | | CORE | | + +---------+ + + + | EGFR | >60 | >60 mL/min | [facility] | | | - | | | LABORATORY | | | SLOVENIAN | | | SERVICES, | | | | | | CORE | | + +---------+ + + + | EGFR NON | 60 (L) | >60 mL/min | [facility] | | | -SOREN | | | LABORATORY | | | RICAN | | | SERVICES, | | | | | | CORE | | + +---------+ + + + | SODIUM, | 142 | 136 - 145 | [facility] | | | PLASMA | | mmol/L | LABORATORY | | | (LAB) | | | SERVICES, | | | | | | CORE | | + +---------+ + + + | POTASSIUM, | 3.7 | 3.4 - 5.0 | [facility] | | | PLASMA | | mmol/L | LABORATORY | | | (LAB) | | | SERVICES, | | | | | | CORE | | + +---------+ + + + | CHLORIDE, | 108 | 97 - 108 mmol/L | [facility] | | | PLASMA | | | LABORATORY | | | (LAB) | | | SERVICES, | | | | | | CORE | | + +---------+ + + + | TOTAL CO2, | 26 | 21 - 32 mmol/L | [facility] | | | PLASMA | | | LABORATORY | | | (LAB) | | | SERVICES, | | | | | | CORE | | + +---------+ + + + | CALCIUM, | 8.0 (L) | 8.6 - 10.2 | [facility] | | | PLASMA | | mg/dL | LABORATORY | | | (LAB) | | | SERVICES, | | | | | | CORE | | + +---------+ + + + | CALCIUM(ALB | 9.5 | 8.6 - 10.2 | [facility] | | | CORRECTED) | | mg/dL | LABORATORY | | | | | | SERVICES, | | | | | | CORE | | + +---------+ + + + | ALBUMIN, | 2.1 (L) | 3.5 - 4.7 g/dL | [facility] | | | PLASMA | | | LABORATORY | | | (LAB) | | | SERVICES, | | | | | | CORE | | + +---------+ + + + | PHOSPHORUS, | 2.8 | 2.4 - 4.7 mg/dL | [facility] | | | PLASMA | | | LABORATORY | | | (LAB) | | | SERVICES, | | | | | | CORE | | + +---------+ + + + | POTASSIUM | No Hemo | | [facility] | | | CMNT | | | LABORATORY | | | | | | SERVICES, | | | | | | CORE | | + +---------+ + + + | ANION GAP | 8 | mmol/L | [facility] | | | | | | LABORATORY | | | | | | SERVICES, | | | | | | CORE | | + +---------+ + + + | ANION | 12 (H) | 4 - 11 mmol/L | [facility] | | | GAP(ALB | | | LABORATORY | | | CORRECTED) | | | SERVICES, | | | | | | CORE | | + +---------+ + + + + + | Specimen | + + | Blood | + + + + + | Narrative | Performed At | + + + | Adult glucose reference range change effective 7-12-17. 2 hrs | [facility] | | after intravenous magnesium repletion if magnesium < 1.6. GFR is | LABORATORY | | estimated using the MDRD equation recommended by the National Kidney | SERVICES, CORE | | Disease Education Program. Estimated GFR Interpretive Information: | | | <60 mL/min/1.73 sq m Chronic Kidney | | | Disease <15 mL/min/1.73 sq m Kidney | | | Failure Estimated GFR greater that 60 mL/min/1.73 sq m is of limited | | | clinical value. The MDRD equation is not valid in the following | | | situations: - Patients under 18 years of age - Severe malnutrition | | | or obesity - Vegetarian diet - Rapidly changing kidney function | | + + + + + + + + | Performing | Address | City/State/Zipcode | Phone Number | | Organization | | | | + + + + + | [facility] | [address] | [place] [address] | | | SERVICES, CORE | [address] | | | + + + + + COAGULOPATHY PANEL (INR,APTT,FIBRINOGEN) (03/18/2017 12:59 PM PDT) + + + + + + | Component | Value | Ref Range | Performed | Pathologist | | | | | At | Signature | + + + + + + | INR | 1.19 | 0.90 - 1.20 INR | [facility] | | | | | | LABORATORY | | | | | | SERVICES, | | | | | | CORE | | + + + + + + | APTT | 80.1 (H) | 26.0 - 36.0 | [facility] | | | | | seconds | LABORATORY | | | | | | SERVICES, | | | | | | CORE | | + + + + + + | FIBRINOGEN | >750 (H) | 200 - 450 mg/dL | [facility] | | | LEVEL | | | LABORATORY | | | | | | SERVICES, | | | | | | CORE | | + + + + + + + + | Specimen | + + | Blood | + + + + + | Narrative | Performed At | + + + | Must order with concurrent CBC INR Therapeutic ranges for full | [facility] | | anticoagulation: INR for Venous | LABORATORY | | Thromboembolism (2.0 - 3.0) INR INR for | SERVICES, CORE | | most patients with mech. valves (2.5 - 3.5) INR APTT | | | Therapeutic Range: (75 - 120) | | | sec Heparin levels of 0.35 - 0.7 U/mL | | + + + + + + + + | Performing | Address | City/State/Zipcode | Phone Number | | Organization | | | | + + + + + | [facility] | [address] | [place] [address] | | | SERVICES, CORE | [address] | | | + + + + + MAGNESIUM, PLASMA (03/18/2017 12:59 PM PDT) + +---------+ + + + | Component | Value | Ref Range | Performed | Pathologist | | | | | At | Signature | + +---------+ + + + | MAGNESIUM,P | 2.6 (H) | 1.8 - 2.5 mg/dL | [facility] | | | LASMA | | | LABORATORY | | | | | | SERVICES, | | | | | | CORE | | + +---------+ + + + + + | Specimen | + + | Blood | + + + + + | Narrative | Performed At | + + + | 2 hrs after intravenous magnesium repletion if magnesium < 1.6. | [facility] | | | LABORATORY | | | ИРИНА ANTOINE | + + + + + + + + | Performing | Address | City/State/Zipcode | Phone Number | | Organization | | | | + + + + + | [facility] | [address] | [place] [address] | | | ИРИНА ANTOINE | [address] | | | + + + + + BLOOD GASES, ARTERIAL - LAB (03/18/2017 12:59 PM PDT) + + + + + + | Component | Value | Ref Range | Performed | Pathologist | | | | | At | Signature | + + + + + + | PAT TEMP | 37.7 | Degree C | [facility] | | | ARTERIAL | | | LABORATORY | | | | | | SERVICES, | | | | | | CORE | | + + + + + + | FIO2 | 1.00 | | [facility] | | | ARTERIAL | | | LABORATORY | | | | | | SERVICES, | | | | | | CORE | | + + + + + + | PH ARTERIAL | 7.44 | 7.37 - 7.44 | [facility] | | | | | | LABORATORY | | | | | | SERVICES, | | | | | | CORE | | + + + + + + | PCO2 | 40 | 32 - 43 mmHg | [facility] | | | ARTERIAL | | | LABORATORY | | | | | | SERVICES, | | | | | | CORE | | + + + + + + | PO2 | 59 (L) | 72 - 104 mmHg | [facility] | | | ARTERIAL | | | LABORATORY | | | | | | SERVICES, | | | | | | CORE | | + + + + + + | HCO3 | 26 | 21 - 28 mmol/L | [facility] | | | ARTERIAL | | | LABORATORY | | | | | | SERVICES, | | | | | | CORE | | + + + + + + | TOTAL CO2 | 28 | 22 - 28 mmol/L | [facility] | | | ARTERIAL | | | LABORATORY | | | | | | SERVICES, | | | | | | CORE | | + + + + + + | BASE EXCESS | 2.5 | mmol/L | [facility] | | | ARTERIAL | | | LABORATORY | | | | | | SERVICES, | | | | | | CORE | | + + + + + + | O2 SAT, | 89.5 (L) | 92.0 - 98.0 % | [facility] | | | ARTERIAL | | | LABORATORY | | | | | | SERVICES, | | | | | | CORE | | + + + + + + | PAO2/FIO2 | 59 (L) | >300 mmHg | [facility] | | | RATIO | | | LABORATORY | | | | | | SERVICES, | | | | | | CORE | | + + + + + + + + | Specimen | + + | Blood | + + + + + + + | Performing | Address | City/State/Zipcode | Phone Number | | Organization | | | | + + + + + | [facility] | [address] | [place] [address] | | | SERVICES, CORE | [address] | | | + + + + + CAPILLARY BLOOD GLUCOSE (NO CHG), POC (03/18/2017 12:08 PM PDT) + +---------+ + + + | Component | Value | Ref Range | Performed | Pathologist | | | | | At | Signature | + +---------+ + + + | BLOOD | 140 (H) | 70 - 99 mg/dL | [facility] - | | | GLUCOSE, | | | [facility] | | | POC | | | [facility] | | | | | | OF CARE | | | | | | TESTS | | + +---------+ + + + + + | Specimen | + + | | + + + + + + + | Performing | Address | City/State/Zipcode | Phone Number | | Organization | | | | + + + + + | [facility] | [address] | [place], [place] | | | [facility] | [address] | [address] | | | TESTS | | | | + + + + + CAPILLARY BLOOD GLUCOSE (NO CHG), POC (03/18/2017 11:02 AM PDT) + +---------+ + + + | Component | Value | Ref Range | Performed | Pathologist | | | | | At | Signature | + +---------+ + + + | BLOOD | 160 (H) | 70 - 99 mg/dL | [facility] - | | | GLUCOSE, | | | [facility] | | | POC | | | [facility] | | | | | | OF CARE | | | | | | TESTS | | + +---------+ + + + + + | Specimen | + + | | + + + + + + + | Performing | Address | City/State/Zipcode | Phone Number | | Organization | | | | + + + + + | [facility] | [address] | [place], [place] | | | J[facility] S[facility] [place] | [facility] | [address] | | | TESTS | | | | + + + + + BLOOD GASES, ARTERIAL - LAB (03/18/2017 11:00 AM PDT) + + + + + + | Component | Value | Ref Range | Performed | Pathologist | | | | | At | Signature | + + + + + + | PAT TEMP | 37.2 | Degree C | [facility] | | | ARTERIAL | | | LABORATORY | | | | | | SERVICES, | | | | | | CORE | | + + + + + + | FIO2 | 1.00 | | [facility] | | | ARTERIAL | | | LABORATORY | | | | | | SERVICES, | | | | | | CORE | | + + + + + + | PH ARTERIAL | 7.44 | 7.37 - 7.44 | [facility] | | | | | | LABORATORY | | | | | | SERVICES, | | | | | | CORE | | + + + + + + | PCO2 | 39 | 32 - 43 mmHg | [facility] | | | ARTERIAL | | | LABORATORY | | | | | | SERVICES, | | | | | | CORE | | + + + + + + | PO2 | 56 (L) | 72 - 104 mmHg | [facility] | | | ARTERIAL | | | LABORATORY | | | | | | SERVICES, | | | | | | CORE | | + + + + + + | HCO3 | 26 | 21 - 28 mmol/L | [facility] | | | ARTERIAL | | | LABORATORY | | | | | | SERVICES, | | | | | | CORE | | + + + + + + | TOTAL CO2 | 28 | 22 - 28 mmol/L | [facility] | | | ARTERIAL | | | LABORATORY | | | | | | SERVICES, | | | | | | CORE | | + + + + + + | BASE EXCESS | 2.5 | mmol/L | [facility] | | | ARTERIAL | | | LABORATORY | | | | | | SERVICES, | | | | | | CORE | | + + + + + + | O2 SAT, | 88.7 (L) | 92.0 - 98.0 % | [facility] | | | ARTERIAL | | | LABORATORY | | | | | | SERVICES, | | | | | | CORE | | + + + + + + | PAO2/FIO2 | 56 (L) | >300 mmHg | [facility] | | | RATIO | | | LABORATORY | | | | | | SERVICES, | | | | | | CORE | | + + + + + + + + | Specimen | + + | Blood | + + + + + + + | Performing | Address | City/State/Zipcode | Phone Number | | Organization | | | | + + + + + | [facility] | [address] | [place] [address] | | | SERVICES, CORE | [address] | | | + + + + + PROCEDURE NOTE (03/18/2017 10:56 AM PDT)CAPILLARY BLOOD GLUCOSE (NO CHG), POC (03/18/2017 1 0:04 AM PDT) + +---------+ + + + | Component | Value | Ref Range | Performed | Pathologist | | | | | At | Signature | + +---------+ + + + | BLOOD | 148 (H) | 70 - 99 mg/dL | [facility] - | | | GLUCOSE, | | | [facility] | | | POC | | | [facility] | | | | | | OF CARE | | | | | | TESTS | | + +---------+ + + + + + | Specimen | + + | | + + + + + + + | Performing | Address | City/State/Zipcode | Phone Number | | Organization | | | | + + + + + | [facility] | [address] | [place], [place] | | | [facility] | [address] | [address] | | | TESTS | | | | + + + + + HEPARIN, EITHER STANDARD / LMW, BLOOD (03/18/2017 10:00 AM PDT) + +-------+ + + + | Component | Value | Ref Range | Performed | Pathologist | | | | | At | Signature | + +-------+ + + + | HEPARIN, | 0.47 | U/mL | [facility] | | | STD LMW | | | LABORATORY | | | | | | SERVICES, | | | | | | CORE | | + +-------+ + + + + + | Specimen | + + | Blood | + + + + + | Narrative | Performed At | + + + | LVAD/Advanced Heart Failure Heparin Protocol Heparin level 6 | [facility] | | hrs after every heparin rate change; If heparin level within target | LABORATORY | | range for 2 consecutive results, recheck every AM. Heparin, Either | SERVICES, CORE | | STD/LMW - Therapeutic Ranges: Heparin, Unfractionated: 0.35 - | | | 0.70 U/mL Enoxaparin, LMWH: 0.70 - 1.20 U/mL | | | Dalteparin, LMWH: 0.70 - 1.20 U/mL Tinzaparin, | | | LMWH: Therapeutic range not established. | | | Preliminary | | | studies suggest range | | | similar to | | | dalteparin. Clinical | | | correlation | | | required. Heparin levels may be unreliable for: | | | Total bilirubin | | | >28.8 mg/dL | | | Triglycerides | | | >690 mg/dL or | | | Moderate to Gross Hemolysis | | + + + + + + + + | Performing | Address | City/State/Zipcode | Phone Number | | Organization | | | | + + + + + | [facility] | [address] | [place] [address] | | | SERVICES, [place] | [address] | | | + + + + + BLOOD GASES, ARTERIAL - LAB (03/18/2017 10:00 AM PDT) + + + + + + | Component | Value | Ref Range | Performed | Pathologist | | | | | At | Signature | + + + + + + | PAT TEMP | 37.1 | Degree C | [facility] | | | ARTERIAL | | | LABORATORY | | | | | | SERVICES, | | | | | | CORE | | + + + + + + | FIO2 | 1.00 | | [facility] | | | ARTERIAL | | | LABORATORY | | | | | | SERVICES, | | | | | | CORE | | + + + + + + | PH ARTERIAL | 7.42 | 7.37 - 7.44 | [facility] | | | | | | LABORATORY | | | | | | SERVICES, | | | | | | CORE | | + + + + + + | PCO2 | 39 | 32 - 43 mmHg | [facility] | | | ARTERIAL | | | LABORATORY | | | | | | SERVICES, | | | | | | CORE | | + + + + + + | PO2 | 58 (L) | 72 - 104 mmHg | [facility] | | | ARTERIAL | | | LABORATORY | | | | | | SERVICES, | | | | | | CORE | | + + + + + + | HCO3 | 25 | 21 - 28 mmol/L | [facility] | | | ARTERIAL | | | LABORATORY | | | | | | SERVICES, | | | | | | CORE | | + + + + + + | TOTAL CO2 | 27 | 22 - 28 mmol/L | [facility] | | | ARTERIAL | | | LABORATORY | | | | | | SERVICES, | | | | | | CORE | | + + + + + + | BASE EXCESS | 1.4 | mmol/L | [facility] | | | ARTERIAL | | | LABORATORY | | | | | | SERVICES, | | | | | | CORE | | + + + + + + | O2 SAT, | 88.7 (L) | 92.0 - 98.0 % | [facility] | | | ARTERIAL | | | LABORATORY | | | | | | SERVICES, | | | | | | CORE | | + + + + + + | PAO2/FIO2 | 58 (L) | >300 mmHg | [facility] | | | RATIO | | | LABORATORY | | | | | | SERVICES, | | | | | | CORE | | + + + + + + + + | Specimen | + + | Blood | + + + + + + + | Performing | Address | City/State/Zipcode | Phone Number | | Organization | | | | + + + + + | [facility] | [address] | [place] [address] | | | SERVICES, CORE | [address] | | | + + + + + CULTURE, SPUTUM (03/18/2017 9:28 AM PDT) + + | Specimen | + + | Endotracheal fluid | + + + + + | Narrative | Performed At | + + + | Culture Report: No growth Gram Stain: Moderate | [facility] - | | polymorphonuclear cells Rare squamous epithelial cells No | [facility] - | | organisms seen | [place] | + + + + + + + + | Performing | Address | City/State/Zipcode | Phone Number | | Organization | | | | + + + + + | [facility] | [address] | [place] [address] | | | [place] | | | | + + + + + CAPILLARY BLOOD GLUCOSE (NO CHG), POC (03/18/2017 9:15 AM PDT) + +---------+ + + + | Component | Value | Ref Range | Performed | Pathologist | | | | | At | Signature | + +---------+ + + + | BLOOD | 129 (H) | 70 - 99 mg/dL | [facility] | | | GLUCOSE, | | | [facility] | | | POC | | | [facility] | | | | | | OF CARE | | | | | | TESTS | | + +---------+ + + + + + | Specimen | + + | | + + + + + + + | Performing | Address | City/State/Zipcode | Phone Number | | Organization | | | | + + + + + | [facility] | [address] | [place], [place] | | | [facility] | [address] | [address] | | | TESTS | | | | + + + + + CAPILLARY BLOOD GLUCOSE (NO CHG), POC (03/18/2017 8:11 AM PDT) + +---------+ + + + | Component | Value | Ref Range | Performed | Pathologist | | | | | At | Signature | + +---------+ + + + | BLOOD | 142 (H) | 70 - 99 mg/dL | [facility] - | | | GLUCOSE, | | | [facility] | | | POC | | | [facility] | | | | | | OF CARE | | | | | | TESTS | | + +---------+ + + + + + | Specimen | + + | | + + + + + + + | Performing | Address | City/State/Zipcode | Phone Number | | Organization | | | | + + + + + | [facility] | [address] | [place], [place] | | | [place], POINT OF CARE | [address] | [address] | | | TESTS | | | | + + + + + CBC (HEMOGRAM) ONLY (03/18/2017 8:08 AM PDT) + + + + + + | Component | Value | Ref Range | Performed | Pathologist | | | | | At | Signature | + + + + + + | WHITE CELL | 11.20 (H) | 3.50 - 10.80 | [facility] | | | COUNT | | K/cu mm | LABORATORY | | | | | | SERVICES, | | | | | | CORE | | + + + + + + | RED CELL | 2.84 (L) | 4.50 - 6.00 | [facility] | | | COUNT | | M/cu mm | LABORATORY | | | | | | SERVICES, | | | | | | CORE | | + + + + + + | HEMOGLOBIN | 9.1 (L) | 13.5 - 17.5 | [facility] | | | | | g/dL | LABORATORY | | | | | | SERVICES, | | | | | | CORE | | + + + + + + | HEMATOCRIT | 26.9 (L) | 41.0 - 53.0 % | [facility] | | | | | | LABORATORY | | | | | | SERVICES, | | | | | | CORE | | + + + + + + | MCV | 94.7 | 80.0 - 96.0 fL | [facility] | | | | | | LABORATORY | | | | | | SERVICES, | | | | | | CORE | | + + + + + + | MCHC | 33.8 | 33.0 - 35.5 | [facility] | | | | | g/dL | LABORATORY | | | | | | SERVICES, | | | | | | CORE | | + + + + + + | RDW SD | 50.8 (H) | 35.1 - 46.3 fL | [facility] | | | | | | LABORATORY | | | | | | SERVICES, | | | | | | CORE | | + + + + + + | PLATELET | 82 (L) | 150 - 400 K/cu | [facility] | | | COUNT | | mm | LABORATORY | | | | | | SERVICES, | | | | | | CORE | | + + + + + + | MPV | 11.1 | 9.7 - 12.3 fL | [facility] | | | | | | LABORATORY | | | | | | SERVICES, | | | | | | CORE | | + + + + + + | NRBC% | 0.0 | 0.0 - 0.3 % | [facility] | | | | | | LABORATORY | | | | | | SERVICES, | | | | | | CORE | | + + + + + + | NRBC# | 0.00 | 0.00 - 0.02 | [facility] | | | | | K/cu mm | LABORATORY | | | | | | SERVICES, | | | | | | CORE | | + + + + + + + + | Specimen | + + | Blood | + + + + + | Narrative | Performed At | + + + | Must be ordered if Coagulopathy Panel is ordered | [facility] | | | LABORATORY | | | SERVICES, CORE | + + + + + + + + | Performing | Address | City/State/Zipcode | Phone Number | | Organization | | | | + + + + + | [facility] | [address] | [place] [address] | | | SERVICES, CORE | [address] | | | + + + + + POTASSIUM, PLASMA (03/18/2017 8:08 AM PDT) + +---------+ + + + | Component | Value | Ref Range | Performed | Pathologist | | | | | At | Signature | + +---------+ + + + | POTASSIUM, | 3.9 | 3.4 - 5.0 | [facility] | | | PLASMA | | mmol/L | LABORATORY | | | (LAB) | | | SERVICES, | | | | | | CORE | | + +---------+ + + + | POTASSIUM | No Hemo | | [facility] | | | CMNT | | | LABORATORY | | | | | | SERVICES, | | | | | | CORE | | + +---------+ + + + + + | Specimen | + + | Blood | + + + + + | Narrative | Performed At | + + + | 6 hrs after PO potassium administration if potassium < 3; 2 hrs | [facility] | | after intravenous potassium repletion if potassium < 3. | LABORATORY | | | SERVICES, CORE | + + + + + + + + | Performing | Address | City/State/Zipcode | Phone Number | | Organization | | | | + + + + + | [facility] | [address] | [place] [address] | | | SERVICES, CORE | [address] | | | + + + + + CAPILLARY BLOOD GLUCOSE (NO CHG), POC (03/18/2017 7:05 AM PDT) + +---------+ + + + | Component | Value | Ref Range | Performed | Pathologist | | | | | At | Signature | + +---------+ + + + | BLOOD | 149 (H) | 70 - 99 mg/dL | [facility] - | | | GLUCOSE, | | | [facility] | | | POC | | | [facility] | | | | | | OF CARE | | | | | | TESTS | | + +---------+ + + + + + | Specimen | + + | | + + + + + + + | Performing | Address | City/State/Zipcode | Phone Number | | Organization | | | | + + + + + | [facility] | [address] | [place], [place] | | | [facility] | [address] | [address] | | | TESTS | | | | + + + + + CAPILLARY BLOOD GLUCOSE (NO CHG), POC (03/18/2017 6:12 AM PDT) + +---------+ + + + | Component | Value | Ref Range | Performed | Pathologist | | | | | At | Signature | + +---------+ + + + | BLOOD | 128 (H) | 60 - 99 mg/dL | [facility] - | | | GLUCOSE, | | | [facility] | | | POC | | | [facility] | | | | | | OF CARE | | | | | | TESTS | | + +---------+ + + + + + | Specimen | + + | | + + + + + + + | Performing | Address | City/State/Zipcode | Phone Number | | Organization | | | | + + + + + | [facility] | [address] | [place], [place] | | | [facility] CARE | [address] | [address] | | | TESTS | | | | + + + + + X-RAY PORTABLE CHEST 1 VIEW (03/18/2017 6:05 AM PDT) + + | Specimen | + + | | + + + + + | Narrative | Performed At | + + + | EXAM: AL CHEST 1 VIEW HISTORY: ECMO. Evaluate cannula placement. | [facility] | | COMPARISON: Yesterday FINDINGS: Endotracheal tube tip is | RADIOLOGY VOICE | | 2.5 cm above the jefferson. Enteric tube tip in the stomach. [place] | RECOGNITION | | catheter tip projects in the main pulmonary artery/proximal right | | | pulmonary artery. ECMO cannula tip projects just above the superior | | | cavoatrial junction. Right upper lobe groundglass and | | | consolidative opacities unchanged. There is no pneumothorax. No | | | definite pleural effusion. IMPRESSION: Support equipment as | | | above. Unchanged right upper lobe groundglass and consolidative | | | opacities, most suggestive of pneumonia. I have personally | | | reviewed the images and, if necessary, edited the report. I agree | | | with the report as now presented. | | + + + + + | Procedure Note | + + | Service Account, [employer] In Interface - 03/18/2017 8:39 AM PDT EXAM: AL CHEST 1 | | VIEW HISTORY: ECMO. Evaluate cannula placement.COMPARISON: YesterdayFINDINGS: | | Endotracheal tube tip is 2.5 cm above the jefferson. Enteric tube tip in the stomach. | | [place] catheter tip projects in the main pulmonary artery/proximal right pulmonary | | artery. ECMO cannula tip projects just above the superior cavoatrial junction.Right | | upper lobe groundglass and consolidative opacities unchanged. There is no pneumothorax. | | No definite pleural effusion.IMPRESSION: Support equipment as above.Unchanged right | | upper lobe groundglass and consolidative opacities, most suggestive of pneumonia.I have | | personally reviewed the images and, if necessary, edited the report. I agree with the | | report as now presented. | |Right upper lobe groundglass and consolidative opacities unchanged. There is no pneumothora x. No definite pleural effusion. | | | |IMPRESSION: | | | |Support equipment as above. | | | |Unchanged right upper lobe groundglass and consolidative opacities, most suggestive of pneu monia. | | | | | |I have personally reviewed the images and, if necessary, edited the report. I agree with t he report as now presented. | + + + +---------+ + + | Performing | Address | City/State/Zipcode | Phone Number | | Organization | | | | + +---------+ + + | [facility] | | | | | VOICE RECOGNITION | | | | + +---------+ + + CAPILLARY BLOOD GLUCOSE (NO CHG), POC (03/18/2017 5:03 AM PDT) + +---------+ + + + | Component | Value | Ref Range | Performed | Pathologist | | | | | At | Signature | + +---------+ + + + | BLOOD | 120 (H) | 60 - 99 mg/dL | [facility] - | | | GLUCOSE, | | | [facility] | | | POC | | | [facility] | | | | | | OF CARE | | | | | | TESTS | | + +---------+ + + + + + | Specimen | + + | | + + + + + + + | Performing | Address | City/State/Zipcode | Phone Number | | Organization | | | | + + + + + | [facility] | [address] | [place], [place] | | | [facility] C[facility] | [facility] | [address] | | | TESTS | | | | + + + + + CAPILLARY BLOOD GLUCOSE (NO CHG), POC (03/18/2017 4:08 AM PDT) + +---------+ + + + | Component | Value | Ref Range | Performed | Pathologist | | | | | At | Signature | + +---------+ + + + | BLOOD | 146 (H) | 60 - 99 mg/dL | [facility] - | | | GLUCOSE, | | | [facility] | | | POC | | | [facility] | | | | | | OF CARE | | | | | | TESTS | | + +---------+ + + + + + | Specimen | + + | | + + + + + + + | Performing | Address | City/State/Zipcode | Phone Number | | Organization | | | | + + + + + | [facility] | [address] | [place], [place] | | | [facility]INT OF CARE | [facility] | [address] | | | TESTS | | | | + + + + + HEPARIN, EITHER STANDARD / LMW, BLOOD (03/18/2017 2:58 AM PDT) + +-------+ + + + | Component | Value | Ref Range | Performed | Pathologist | | | | | At | Signature | + +-------+ + + + | HEPARIN, | 0.29 | U/mL | [facility] | | | STD LMW | | | LABORATORY | | | | | | SERVICES, | | | | | | CORE | | + +-------+ + + + + + | Specimen | + + | Blood | + + + + + | Narrative | Performed At | + + + | LVAD/Advanced Heart Failure Heparin Protocol Heparin level 6 | [facility] | | hrs after every heparin rate change; If heparin level within target | LABORATORY | | range for 2 consecutive results, recheck every AM. Heparin, Either | SERVICES, CORE | | STD/LMW - Therapeutic Ranges: Heparin, Unfractionated: 0.35 - | | | 0.70 U/mL Enoxaparin, LMWH: 0.70 - 1.20 U/mL | | | Dalteparin, LMWH: 0.70 - 1.20 U/mL Tinzaparin, | | | LMWH: Therapeutic range not established. | | | Preliminary | | | studies suggest range | | | similar to | | | dalteparin. Clinical | | | correlation | | | required. Heparin levels may be unreliable for: | | | Total bilirubin | | | >28.8 mg/dL | | | Triglycerides | | | >690 mg/dL or | | | Moderate to Gross Hemolysis | | + + + + + + + + | Performing | Address | City/State/Zipcode | Phone Number | | Organization | | | | + + + + + | [facility] | [address] | [place] [address] | | | SERVICES, CORE | [address] | | | + + + + + CAPILLARY BLOOD GLUCOSE (NO CHG), POC (03/18/2017 2:57 AM PDT) + +---------+ + + + | Component | Value | Ref Range | Performed | Pathologist | | | | | At | Signature | + +---------+ + + + | BLOOD | 188 (H) | 60 - 99 mg/dL | [facility] - | | | GLUCOSE, | | | [facility] | | | POC | | | [facility] | | | | | | OF CARE | | | | | | TESTS | | + +---------+ + + + + + | Specimen | + + | | + + + + + + + | Performing | Address | City/State/Zipcode | Phone Number | | Organization | | | | + + + + + | [facility] | [address] | [place], [place] | | | [facility]INT OF CARE | [address] | [address] | | | TESTS | | | | + + + + + CAPILLARY BLOOD GLUCOSE (NO CHG), POC (03/18/2017 2:05 AM PDT) + +---------+ + + + | Component | Value | Ref Range | Performed | Pathologist | | | | | At | Signature | + +---------+ + + + | BLOOD | 150 (H) | 60 - 99 mg/dL | [facility] - | | | GLUCOSE, | | | [facility] | | | POC | | | [facility] | | | | | | OF CARE | | | | | | TESTS | | + +---------+ + + + + + | Specimen | + + | | + + + + + + + | Performing | Address | City/State/Zipcode | Phone Number | | Organization | | | | + + + + + | [facility] | [address] | [place], [place] | | | [facility] CARE | [address] | [address] | | | TESTS | | | | + + + + + ANTIBODY SCREEN (03/18/2017 2:02 AM PDT) + + + + + + | Component | Value | Ref Range | Performed | Pathologist | | | | | At | Signature | + + + + + + | Antibody | Negative | | [facility] | | | Screen | | | LABORATORY | | | | | | SERVICES, | | | | | | TRANSFUSION | | | | | | MEDICINE | | + + + + + + + + | Specimen | + + | Blood | + + + + + + + | Performing | Address | City/State/Zipcode | Phone Number | | Organization | | | | + + + + + | [facility] | [address] | [place] [address] | | | SERVICES, | [address] | | | | TRANSFUSION MEDICINE | | | | + + + + + ABO & RH TYPE (03/18/2017 2:02 AM PDT) + + + + + + | Component | Value | Ref Range | Performed | Pathologist | | | | | At | Signature | + + + + + + | ABO Group | O | | [facility] | | | | | | LABORATORY | | | | | | SERVICES, | | | | | | TRANSFUSION | | | | | | MEDICINE | | + + + + + + | Rh Type | Positive | | [facility] | | | | | | LABORATORY | | | | | | SERVICES, | | | | | | TRANSFUSION | | | | | | MEDICINE | | + + + + + + + + | Specimen | + + | Blood | + + + + + + + | Performing | Address | City/State/Zipcode | Phone Number | | Organization | | | | + + + + + | [facility] | [address] | [place] [address] | | | SERVICES, | [address] | | | | TRANSFUSION MEDICINE | | | | + + + + + PRODUCT - RED CELLS LEUKOREDUCED (03/18/2017 1:59 AM PDT) + + + + + + | Component | Value | Ref Range | Performed | Pathologist | | | | | At | Signature | + + + + + + | PRODUCT | -3 RED BLOOD CELLS | | [facility] | | | DESCRIPTION | ADENINE-SALINE ADDED | | LABORATORY | | | | LEUKOCY | | SERVICES, | | | | | | TRANSFUSION | | | | | | MEDICINE | | + + + + + + | PRODUCT | [id number] | | [facility] | | | UNIT # | | | LABORATORY | | | | | | SERVICES, | | | | | | TRANSFUSION | | | | | | MEDICINE | | + + + + + + | UNIT ABO | O | | [facility] | | | | | | LABORATORY | | | | | | SERVICES, | | | | | | TRANSFUSION | | | | | | MEDICINE | | + + + + + + | UNIT RH | POS | | [facility] | | | | | | LABORATORY | | | | | | SERVICES, | | | | | | TRANSFUSION | | | | | | MEDICINE | | + + + + + + | STATUS OF | Presumed Transfused | | [facility] | | | UNIT | | | LABORATORY | | | | | | SERVICES, | | | | | | TRANSFUSION | | | | | | MEDICINE | | + + + + + + | EXPIRATION | [id number] | | [facility] | | | DATE | | | LABORATORY | | | | | | SERVICES, | | | | | | TRANSFUSION | | | | | | MEDICINE | | + + + + + + | BLOOD TYPE | [id number] | | [facility] | | | BARCODE | | | LABORATORY | | | | | | SERVICES, | | | | | | TRANSFUSION | | | | | | MEDICINE | | + + + + + + | BLOOD | [id number] | | [facility] | | | PRODUCT | | | LABORATORY | | | CODE | | | SERVICES, | | | | | | TRANSFUSION | | | | | | MEDICINE | | + + + + + + + + | Specimen | + + | | + + + + + + + | Performing | Address | City/State/Zipcode | Phone Number | | Organization | | | | + + + + + | [facility] | [address] | [place] [address] | | | ARASH | [address] | | | | TRANSFUSION MEDICINE | | | | + + + + + THROMBELASTOGRAPH, POC (03/18/2017 1:36 AM PDT) + + + + + + | Component | Value | Ref Range | Performed | Pathologist | | | | | At | Signature | + + + + + + | R - | 14.5 (A) | 5 - 10 Minutes | [facility] - | | | CITRATED | | | [facility] | | | | | | [facility] | | | | | | OF CARE | | | | | | TESTS | | + + + + + + | K - | 3.1 (A) | 1 - 3 Minutes | [facility] - | | | CITRATED | | | [facility] | | | | | | [facility] | | | | | | OF CARE | | | | | | TESTS | | + + + + + + | ANGLE - | 62.8 | 53 - 72 Degrees | [facility] - | | | CITRATED | | | [facility] | | | | | | [facility] | | | | | | OF CARE | | | | | | TESTS | | + + + + + + | MAXIMUM | 75.8 (A) | 55 - 70 mm | [facility] - | | | [facility]UDE - | | | [facility] | | | CITRATED | | | [facility] | | | | | | OF CARE | | | | | | TESTS | | + + + + + + | LY 30 | 0.0 | 0 - 8 % | [facility] | | | | | | [facility] | | | | | | [facility] | | | | | | OF CARE | | | | | | TESTS | | + + + + + + | CLOT INDEX | -4.4 (A) | -3 - 3 | [facility] - | | | | | | [facility] | | | | | | [facility] | | | | | | OF CARE | | | | | | TESTS | | + + + + + + + + | Specimen | + + | Blood | + + + + + | Impressions | Performed At | + + + | A standard citrated kaolin TEG was performed Prolonged R time | [facility] - | | corresponds to decreased soluble coagulation factors suggesting | [facility], | | HYPOcoagulability. Elevated ALPHA angle corresponds to increased | POINT OF CARE | | rate of fibrin crosslinking suggesting HYPERcoagulability MA is | TESTS | | normal. Normal LY30 corresponds to normal fibrinolysis | | | Overall, TEG suggests hypocoagulability. See Media Tab in Chart | | | Review for TEG tracing Electronically signed on 07/27/2017 at 3:40 | | | PM Rocio Galloway MD | | + + + + + + + + | Performing | Address | City/State/Zipcode | Phone Number | | Organization | | | | + + + + + | [facility] | [address] | [place], [place] | | | [facility] | [address] | [address] | | | TESTS | | | | + + + + + BLOOD GASES, ARTERIAL - LAB (03/18/2017 1:20 AM PDT) + + + + + + | Component | Value | Ref Range | Performed | Pathologist | | | | | At | Signature | + + + + + + | PAT TEMP | 37.8 | Degree C | [facility] | | | ARTERIAL | | | LABORATORY | | | | | | SERVICES, | | | | | | CORE | | + + + + + + | FIO2 | 1.00 | | [facility] | | | ARTERIAL | | | LABORATORY | | | | | | SERVICES, | | | | | | CORE | | + + + + + + | PH ARTERIAL | 7.51 (H) | 7.37 - 7.44 | [facility] | | | | | | LABORATORY | | | | | | SERVICES, | | | | | | CORE | | + + + + + + | PCO2 | 32 | 32 - 43 mmHg | [facility] | | | ARTERIAL | | | LABORATORY | | | | | | SERVICES, | | | | | | CORE | | + + + + + + | PO2 | 534 (H) | 72 - 104 mmHg | [facility] | | | ARTERIAL | | | LABORATORY | | | | | | SERVICES, | | | | | | CORE | | + + + + + + | HCO3 | 25 | 21 - 28 mmol/L | [facility] | | | ARTERIAL | | | LABORATORY | | | | | | SERVICES, | | | | | | CORE | | + + + + + + | TOTAL CO2 | 26 | 22 - 28 mmol/L | [facility] | | | ARTERIAL | | | LABORATORY | | | | | | SERVICES, | | | | | | CORE | | + + + + + + | BASE EXCESS | 2.8 | mmol/L | [facility] | | | ARTERIAL | | | LABORATORY | | | | | | SERVICES, | | | | | | CORE | | + + + + + + | O2 SAT, | 98.2 (H) | 92.0 - 98.0 % | [facility] | | | ARTERIAL | | | LABORATORY | | | | | | SERVICES, | | | | | | CORE | | + + + + + + | PAO2/FIO2 | 534 | >300 mmHg | [facility] | | | RATIO | | | LABORATORY | | | | | | SERVICES, | | | | | | CORE | | + + + + + + + + | Specimen | + + | Blood | + + + + + + + | Performing | Address | City/State/Zipcode | Phone Number | | Organization | | | | + + + + + | [facility] | [address] | [place] [address] | | | SERVICES, CORE | [address] | | | + + + + + CBC AND AUTO DIFF (03/18/2017 1:19 AM PDT) + + + + + + | Component | Value | Ref Range | Performed | Pathologist | | | | | At | Signature | + + + + + + | WHITE CELL | 10.87 (H) | 3.50 - 10.80 | [facility] | | | COUNT | | K/cu mm | LABORATORY | | | | | | SERVICES, | | | | | | CORE | | + + + + + + | RED CELL | 2.57 (L) | 4.50 - 6.00 | [facility] | | | COUNT | | M/cu mm | LABORATORY | | | | | | SERVICES, | | | | | | CORE | | + + + + + + | HEMOGLOBIN | 8.3 (L) | 13.5 - 17.5 | [facility] | | | | | g/dL | LABORATORY | | | | | | SERVICES, | | | | | | CORE | | + + + + + + | HEMATOCRIT | 24.4 (L) | 41.0 - 53.0 % | [facility] | | | | | | LABORATORY | | | | | | SERVICES, | | | | | | CORE | | + + + + + + | MCV | 94.9 | 80.0 - 96.0 fL | [facility] | | | | | | LABORATORY | | | | | | SERVICES, | | | | | | CORE | | + + + + + + | MCHC | 34.0 | 33.0 - 35.5 | [facility] | | | | | g/dL | LABORATORY | | | | | | SERVICES, | | | | | | CORE | | + + + + + + | RDW SD | 51.0 (H) | 35.1 - 46.3 fL | [facility] | | | | | | LABORATORY | | | | | | SERVICES, | | | | | | CORE | | + + + + + + | PLATELET | 89 (L) | 150 - 400 K/cu | [facility] | | | COUNT | | mm | LABORATORY | | | | | | SERVICES, | | | | | | CORE | | + + + + + + | MPV | 10.7 | 9.7 - 12.3 fL | [facility] | | | | | | LABORATORY | | | | | | SERVICES, | | | | | | CORE | | + + + + + + | NRBC% | 0.0 | 0.0 - 0.3 % | [facility] | | | | | | LABORATORY | | | | | | SERVICES, | | | | | | CORE | | + + + + + + | NRBC# | 0.00 | 0.00 - 0.02 | [facility] | | | | | K/cu mm | LABORATORY | | | | | | SERVICES, | | | | | | CORE | | + + + + + + | NEUTROPHIL | 78.1 (H) | 50.0 - 70.0 % | [facility] | | | % | | | LABORATORY | | | | | | SERVICES, | | | | | | CORE | | + + + + + + | LYMPHOCYTE | 13.1 (L) | 18.0 - 42.0 % | [facility] | | | % | | | LABORATORY | | | | | | SERVICES, | | | | | | CORE | | + + + + + + | MONOCYTE % | 7.5 | 3.5 - 9.0 % | [facility] | | | | | | LABORATORY | | | | | | SERVICES, | | | | | | CORE | | + + + + + + | EOS % | 0.1 (L) | 1.0 - 3.0 % | [facility] | | | | | | LABORATORY | | | | | | SERVICES, | | | | | | CORE | | + + + + + + | BASO % | 0.1 | 0.0 - 2.0 % | [facility] | | | | | | LABORATORY | | | | | | SERVICES, | | | | | | CORE | | + + + + + + | IG% | 1.1 (H)Comment: Immature | 0.0 - 0.6 % | [facility] | | | | Granulocytes (IG) | | LABORATORY | | | | include metamyelocytes, | | SERVICES, | | | | myelocytes and | | CORE | | | | promyelocytes. Bands | | | | | | are not included in the | | | | | | IG count. Bands are | | | | | | included in the | | | | | | neutrophil count. | | | | + + + + + + | NEUTROPHIL | 8.49 (H) | 1.80 - 7.70 | [facility] | | | # | | K/cu mm | LABORATORY | | | | | | SERVICES, | | | | | | CORE | | + + + + + + | LYMPHOCYTE | 1.42 | 1.00 - 4.80 | [facility] | | | # | | K/cu mm | LABORATORY | | | | | | SERVICES, | | | | | | CORE | | + + + + + + | MONOCYTE # | 0.82 | 0.10 - 0.90 | [facility] | | | | | K/cu mm | LABORATORY | | | | | | SERVICES, | | | | | | CORE | | + + + + + + | EOS # | 0.01 | 0.00 - 0.50 | [facility] | | | | | K/cu mm | LABORATORY | | | | | | SERVICES, | | | | | | CORE | | + + + + + + | BASO # | 0.01 | 0.00 - 0.10 | [facility] | | | | | K/cu mm | LABORATORY | | | | | | SERVICES, | | | | | | CORE | | + + + + + + | IG# | 0.12 (H) | 0.00 - 0.03 | [facility] | | | | | K/cu mm | LABORATORY | | | | | | SERVICES, | | | | | | CORE | | + + + + + + + + | Specimen | + + | Blood | + + + + + | Narrative | Performed At | + + + | Immature Granulocytes (IG) include metamyelocytes, myelocytes | [facility] | | and promyelocytes. Bands are not included in the IG count. Bands | LABORATORY | | are included in the neutrophil count. | SERVICES, [facility] | + + + + + + + + | Performing | Address | City/State/Zipcode | Phone Number | | Organization | | | | + + + + + | [facility] | [address] | [place] [address] | | | SERVICES, CORE | [address] | | | + + + + + BLOOD GASES, VENOUS - LAB (03/18/2017 1:19 AM PDT) + +-------+ + + + | Component | Value | Ref Range | Performed | Pathologist | | | | | At | Signature | + +-------+ + + + | PAT TEMP | 37.8 | Degree C | [facility] | | | VENOUS | | | LABORATORY | | | | | | SERVICES, | | | | | | CORE | | + +-------+ + + + | FIO2 VENOUS | 1.0 | | [facility] | | | | | | LABORATORY | | | | | | SERVICES, | | | | | | CORE | | + +-------+ + + + | PH VENOUS | 7.44 | 7.35 - 7.45 | [facility] | | | | | | LABORATORY | | | | | | SERVICES, | | | | | | CORE | | + +-------+ + + + | PCO2 VENOUS | 40 | 35 - 50 mmHg | [facility] | | | | | | LABORATORY | | | | | | SERVICES, | | | | | | CORE | | + +-------+ + + + | PO2 VENOUS | 39 | 30 - 55 mmHg | [facility] | | | | | | LABORATORY | | | | | | SERVICES, | | | | | | CORE | | + +-------+ + + + | HCO3 VENOUS | 26 | 22 - 28 mmol/L | [facility] | | | | | | LABORATORY | | | | | | SERVICES, | | | | | | CORE | | + +-------+ + + + | BASE EXCESS | 2.6 | mmol/L | [facility] | | | VENOUS | | | LABORATORY | | | | | | SERVICES, | | | | | | CORE | | + +-------+ + + + | O2 SAT, | 70.9 | No range has | [facility] | | | VENOUS | | been | LABORATORY | | | | | established % | SERVICES, | | | | | | CORE | | + +-------+ + + + | TOTAL CO2 | 28 | 23 - 29 mmol/L | [facility] | | | VENOUS | | | LABORATORY | | | | | | SERVICES, | | | | | | CORE | | + +-------+ + + + + + | Specimen | + + | Blood | + + + + + + + | Performing | Address | City/State/Zipcode | Phone Number | | Organization | | | | + + + + + | [facility] | [address] | [place] [address] | | | SERVICES, CORE | [address] | | | + + + + + HEMOGLOBIN, PLASMA FREE (03/18/2017 1:19 AM PDT) + +--------+ + + + | Component | Value | Ref Range | Performed | Pathologist | | | | | At | Signature | + +--------+ + + + | HEMOGLOBIN, | 60 (H) | <=10 mg/dL | [facility] | | | PLASMA | | | LABORATORY | | | FREE | | | SERVICES, | | | | | | CORE | | + +--------+ + + + + + | Specimen | + + | Blood | + + + + + + + | Performing | Address | City/State/Zipcode | Phone Number | | Organization | | | | + + + + + | [facility] | [address] | [place] [address] | | | SERVICES, CORE | [address] | | | + + + + + RENAL FUNCTION SET (NA,K,CL,CO2,BUN,CREAT,GLUC,CA,PHOS,ALB ) (03/18/2017 1:19 AM PDT) + + + + + + | Component | Value | Ref Range | Performed | Pathologist | | | | | At | Signature | + + + + + + | GLUCOSE, | 135 (H) | 60 - 99 mg/dL | [facility] | | | PLASMA | | | LABORATORY | | | (LAB) | | | SERVICES, | | | | | | CORE | | + + + + + + | BUN, PLASMA | 28 (H) | 6 - 20 mg/dL | [facility] | | | (LAB) | | | LABORATORY | | | | | | SERVICES, | | | | | | CORE | | + + + + + + | CREATININE | 1.31 (H) | 0.70 - 1.30 | [facility] | | | PLASMA | | mg/dL | LABORATORY | | | (LAB) | | | SERVICES, | | | | | | CORE | | + + + + + + | EGFR | >60 | >60 mL/min | [facility] | | | - | | | LABORATORY | | | SLOVENIAN | | | SERVICES, | | | | | | CORE | | + + + + + + | EGFR NON | 55 (L) | >60 mL/min | [facility] | | | -SOREN | | | LABORATORY | | | RICAN | | | SERVICES, | | | | | | CORE | | + + + + + + | SODIUM, | 143 | 136 - 145 | [facility] | | | PLASMA | | mmol/L | LABORATORY | | | (LAB) | | | SERVICES, | | | | | | CORE | | + + + + + + | POTASSIUM, | 3.7 | 3.4 - 5.0 | [facility] | | | PLASMA | | mmol/L | LABORATORY | | | (LAB) | | | SERVICES, | | | | | | CORE | | + + + + + + | CHLORIDE, | 109 (H) | 97 - 108 mmol/L | [facility] | | | PLASMA | | | LABORATORY | | | (LAB) | | | SERVICES, | | | | | | CORE | | + + + + + + | TOTAL CO2, | 26 | 21 - 32 mmol/L | [facility] | | | PLASMA | | | LABORATORY | | | (LAB) | | | SERVICES, | | | | | | CORE | | + + + + + + | CALCIUM, | 7.2 (L) | 8.6 - 10.2 | [facility] | | | PLASMA | | mg/dL | LABORATORY | | | (LAB) | | | SERVICES, | | | | | | CORE | | + + + + + + | CALCIUM(ALB | 8.8 | 8.6 - 10.2 | [facility] | | | CORRECTED) | | mg/dL | LABORATORY | | | | | | SERVICES, | | | | | | CORE | | + + + + + + | ALBUMIN, | 2.0 (L) | 3.5 - 4.7 g/dL | [facility] | | | PLASMA | | | LABORATORY | | | (LAB) | | | SERVICES, | | | | | | CORE | | + + + + + + | PHOSPHORUS, | 3.5 | 2.4 - 4.7 mg/dL | [facility] | | | PLASMA | | | LABORATORY | | | (LAB) | | | SERVICES, | | | | | | CORE | | + + + + + + | POTASSIUM | No Hemo | | [facility] | | | CMNT | | | LABORATORY | | | | | | SERVICES, | | | | | | CORE | | + + + + + + | ANION GAP | 8 | mmol/L | [facility] | | | | | | LABORATORY | | | | | | SERVICES, | | | | | | CORE | | + + + + + + | ANION | 13 (H) | 4 - 11 mmol/L | [facility] | | | GAP(ALB | | | LABORATORY | | | CORRECTED) | | | SERVICES, | | | | | | CORE | | + + + + + + + + | Specimen | + + | Blood | + + + + + | Narrative | Performed At | + + + | GFR is estimated using the MDRD equation recommended by the | [facility] | | National Kidney Disease Education Program. Estimated GFR | LABORATORY | | Interpretive Information: <60 mL/min/1.73 sq | SERVICES, CORE | | m Chronic Kidney Disease <15 mL/min/1.73 | | | sq m Kidney Failure Estimated GFR greater | | | that 60 mL/min/1.73 sq m is of limited clinical value. The MDRD | | | equation is not valid in the following situations: - Patients under | | | 18 years of age - Severe malnutrition or obesity - Vegetarian diet | | | - Rapidly changing kidney function | | + + + + + + + + | Performing | Address | City/State/Zipcode | Phone Number | | Organization | | | | + + + + + | [facility] | [address] | [place] [address] | | | SERVICES, CORE | [address] | | | + + + + + COAGULOPATHY PANEL (INR,APTT,FIBRINOGEN) (03/18/2017 1:19 AM PDT) + + + + + + | Component | Value | Ref Range | Performed | Pathologist | | | | | At | Signature | + + + + + + | INR | 1.36 (H) | 0.90 - 1.20 INR | [facility] | | | | | | LABORATORY | | | | | | SERVICES, | | | | | | CORE | | + + + + + + | APTT | 104.3 (H) | 26.0 - 36.0 | [facility] | | | | | seconds | LABORATORY | | | | | | SERVICES, | | | | | | CORE | | + + + + + + | FIBRINOGEN | >750 (H) | 200 - 450 mg/dL | [facility] | | | LEVEL | | | LABORATORY | | | | | | SERVICES, | | | | | | CORE | | + + + + + + + + | Specimen | + + | Blood | + + + + + | Narrative | Performed At | + + + | Must order with concurrent CBC INR Therapeutic ranges for full | [facility] | | anticoagulation: INR for Venous | LABORATORY | | Thromboembolism (2.0 - 3.0) INR INR for | SERVICES, CORE | | most patients with mech. valves (2.5 - 3.5) INR APTT | | | Therapeutic Range: (75 - 120) | | | sec Heparin levels of 0.35 - 0.7 U/mL | | + + + + + + + + | Performing | Address | City/State/Zipcode | Phone Number | | Organization | | | | + + + + + | [facility] | [address] | [place] [address] | | | SERVICES, CORE | [address] | | | + + + + + MAGNESIUM, PLASMA (03/18/2017 1:19 AM PDT) + +-------+ + + + | Component | Value | Ref Range | Performed | Pathologist | | | | | At | Signature | + +-------+ + + + | MAGNESIUM,P | 2.3 | 1.8 - 2.5 mg/dL | [facility] | | | [facility] | | | LABORATORY | | | | | | SERVICES, | | | | | | CORE | | + +-------+ + + + + + | Specimen | + + | Blood | + + + + + + + | Performing | Address | City/State/Zipcode | Phone Number | | Organization | | | | + + + + + | [facility] | [address] | [place] [address] | | | ARASH, ИРИНА | [address] | | | + + + + + BLOOD GASES, ARTERIAL - LAB (03/18/2017 1:18 AM PDT) + + + + + + | Component | Value | Ref Range | Performed | Pathologist | | | | | At | Signature | + + + + + + | PAT TEMP | 37.8 | Degree C | [facility] | | | ARTERIAL | | | LABORATORY | | | | | | SERVICES, | | | | | | CORE | | + + + + + + | FIO2 | 1.00 | | [facility] | | | ARTERIAL | | | LABORATORY | | | | | | SERVICES, | | | | | | CORE | | + + + + + + | PH ARTERIAL | 7.47 (H) | 7.37 - 7.44 | [facility] | | | | | | LABORATORY | | | | | | SERVICES, | | | | | | CORE | | + + + + + + | PCO2 | 37 | 32 - 43 mmHg | [facility] | | | ARTERIAL | | | LABORATORY | | | | | | SERVICES, | | | | | | CORE | | + + + + + + | PO2 | 59 (L) | 72 - 104 mmHg | [facility] | | | ARTERIAL | | | LABORATORY | | | | | | SERVICES, | | | | | | CORE | | + + + + + + | HCO3 | 26 | 21 - 28 mmol/L | [facility] | | | ARTERIAL | | | LABORATORY | | | | | | SERVICES, | | | | | | CORE | | + + + + + + | TOTAL CO2 | 28 | 22 - 28 mmol/L | [facility] | | | ARTERIAL | | | LABORATORY | | | | | | SERVICES, | | | | | | CORE | | + + + + + + | BASE EXCESS | 3.2 | mmol/L | [facility] | | | ARTERIAL | | | LABORATORY | | | | | | SERVICES, | | | | | | CORE | | + + + + + + | O2 SAT, | 90.5 (L) | 92.0 - 98.0 % | [facility] | | | ARTERIAL | | | LABORATORY | | | | | | SERVICES, | | | | | | CORE | | + + + + + + | PAO2/FIO2 | 59 (L) | >300 mmHg | [facility] | | | RATIO | | | LABORATORY | | | | | | SERVICES, | | | | | | CORE | | + + + + + + + + | Specimen | + + | Blood | + + + + + + + | Performing | Address | City/State/Zipcode | Phone Number | | Organization | | | | + + + + + | [facility] | [address] | [place] [address] | | | ARASH, ИРИНА | [address] | | | + + + + + CAPILLARY BLOOD GLUCOSE (NO CHG), POC (03/18/2017 1:07 AM PDT) + +---------+ + + + | Component | Value | Ref Range | Performed | Pathologist | | | | | At | Signature | + +---------+ + + + | BLOOD | 146 (H) | 60 - 99 mg/dL | [facility] - | | | GLUCOSE, | | | [facility] | | | POC | | | [facility] | | | | | | OF CARE | | | | | | TESTS | | + +---------+ + + + + + | Specimen | + + | | + + + + + + + | Performing | Address | City/State/Zipcode | Phone Number | | Organization | | | | + + + + + | [facility] | [address] | [place], [place] | | | JULIANN S[facility] OF [place] | [address] | [address] | | | TESTS | | | | + + + + + CULTURE, BLOOD BACTI & YEAST [facility] (03/18/2017 12:48 AM PDT) + + + + + + | Component | Value | Ref Range | Performed | Pathologist | | | | | At | Signature | + + + + + + | CULTURE | Final Report:No Bacteria | | [facility] | | | RESULT | or Yeast isolated at 5 | | LABORATORY | | | | days. | | SERVICES, | | | | | | CORE | | + + + + + + + + | Specimen | + + | Blood | + + + + + + + | Performing | Address | City/State/Zipcode | Phone Number | | Organization | | | | + + + + + | [facility] | [address] | [place] [address] | | | SERVICES, ИРИНА | [address] | | | + + + + + CULTURE, BLOOD BACTI & YEAST [facility] (03/18/2017 12:46 AM PDT) + + + + + + | Component | Value | Ref Range | Performed | Pathologist | | | | | At | Signature | + + + + + + | CULTURE | Final Report:No Bacteria | | [facility] | | | RESULT | or Yeast isolated at 5 | | LABORATORY | | | | days. | | SERVICES, | | | | | | CORE | | + + + + + + + + | Specimen | + + | Blood | + + + + + + + | Performing | Address | City/State/Zipcode | Phone Number | | Organization | | | | + + + + + | [facility] | [address] | [place] [address] | | | SERVICES, ИРИНА | [address] | | | + + + + + CAPILLARY BLOOD GLUCOSE (NO CHG), POC (03/18/2017 12:05 AM PDT) + +---------+ + + + | Component | Value | Ref Range | Performed | Pathologist | | | | | At | Signature | + +---------+ + + + | BLOOD | 130 (H) | 60 - 99 mg/dL | [facility] - | | | GLUCOSE, | | | [facility] | | | POC | | | [facility] | | | | | | OF CARE | | | | | | TESTS | | + +---------+ + + + + + | Specimen | + + | | + + + + + + + | Performing | Address | City/State/Zipcode | Phone Number | | Organization | | | | + + + + + | [facility] | [address] | [place], [place] | | | [facility] [place] | [facility] | [address] | | | TESTS | | | | + + + + + CAPILLARY BLOOD GLUCOSE (NO CHG), POC (03/17/2017 11:09 PM PDT) + +---------+ + + + | Component | Value | Ref Range | Performed | Pathologist | | | | | At | Signature | + +---------+ + + + | BLOOD | 149 (H) | 60 - 99 mg/dL | [facility] | | | GLUCOSE, | | | [facility] | | | POC | | | [place] [place] | | | | | | OF CARE | | | | | | TESTS | | + +---------+ + + + + + | Specimen | + + | | + + + + + + + | Performing | Address | City/State/Zipcode | Phone Number | | Organization | | | | + + + + + | [facility] | [address] | [place], [place] | | | [facility] | [address] | [address] | | | TESTS | | | | + + + + + CAPILLARY BLOOD GLUCOSE (NO CHG), POC (03/17/2017 9:59 PM PDT) + +---------+ + + + | Component | Value | Ref Range | Performed | Pathologist | | | | | At | Signature | + +---------+ + + + | BLOOD | 138 (H) | 60 - 99 mg/dL | [facility] | | | GLUCOSE, | | | [facility] | | | POC | | | [facility] | | | | | | OF CARE | | | | | | TESTS | | + +---------+ + + + + + | Specimen | + + | | + + + + + + + | Performing | Address | City/State/Zipcode | Phone Number | | Organization | | | | + + + + + | [facility] | [address] | [place], [place] | | | [facility] OF [facility] | [address] | [address] | | | TESTS | | | | + + + + + CAPILLARY BLOOD GLUCOSE (NO CHG), POC (03/17/2017 9:02 PM PDT) + +---------+ + + + | Component | Value | Ref Range | Performed | Pathologist | | | | | At | Signature | + +---------+ + + + | BLOOD | 144 (H) | 60 - 99 mg/dL | [facility] - | | | GLUCOSE, | | | [facility] | | | POC | | | [facility] | | | | | | OF CARE | | | | | | TESTS | | + +---------+ + + + + + | Specimen | + + | | + + + + + + + | Performing | Address | City/State/Zipcode | Phone Number | | Organization | | | | + + + + + | [facility] | [address] | [place], [place] | | | [facility] OF [facility] | [facility] | [address] | | | TESTS | | | | + + + + + HEPARIN, EITHER STANDARD / LMW, BLOOD (03/17/2017 9:00 PM PDT) + +-------+ + + + | Component | Value | Ref Range | Performed | Pathologist | | | | | At | Signature | + +-------+ + + + | HEPARIN, | 0.22 | U/mL | [facility] | | | STD LMW | | | LABORATORY | | | | | | SERVICES, | | | | | | CORE | | + +-------+ + + + + + | Specimen | + + | Blood | + + + + + | Narrative | Performed At | + + + | LVAD/Advanced Heart Failure Heparin Protocol Heparin level 6 | [facility] | | hrs after every heparin rate change; If heparin level within target | LABORATORY | | range for 2 consecutive results, recheck every AM. Heparin, Either | SERVICES, CORE | | STD/LMW - Therapeutic Ranges: Heparin, Unfractionated: 0.35 - | | | 0.70 U/mL Enoxaparin, LMWH: 0.70 - 1.20 U/mL | | | Dalteparin, LMWH: 0.70 - 1.20 U/mL Tinzaparin, | | | LMWH: Therapeutic range not established. | | | Preliminary | | | studies suggest range | | | similar to | | | dalteparin. Clinical | | | correlation | | | required. Heparin levels may be unreliable for: | | | Total bilirubin | | | >28.8 mg/dL | | | Triglycerides | | | >690 mg/dL or | | | Moderate to Gross Hemolysis | | + + + + + + + + | Performing | Address | City/State/Zipcode | Phone Number | | Organization | | | | + + + + + | [facility] | [address] | [place] [address] | | | SERVICES, CORE | [address] | | | + + + + + CAPILLARY BLOOD GLUCOSE (NO CHG), POC (03/17/2017 8:17 PM PDT) + +---------+ + + + | Component | Value | Ref Range | Performed | Pathologist | | | | | At | Signature | + +---------+ + + + | BLOOD | 153 (H) | 60 - 99 mg/dL | [facility] - | | | GLUCOSE, | | | [facility] | | | POC | | | [facility] | | | | | | OF CARE | | | | | | TESTS | | + +---------+ + + + + + | Specimen | + + | | + + + + + + + | Performing | Address | City/State/Zipcode | Phone Number | | Organization | | | | + + + + + | [facility] | [address] | [place], [place] | | | [facility] CARE | [address] | [address] | | | TESTS | | | | + + + + + CBC (HEMOGRAM) ONLY (03/17/2017 8:09 PM PDT) + + + + + + | Component | Value | Ref Range | Performed | Pathologist | | | | | At | Signature | + + + + + + | WHITE CELL | 14.32 (H) | 3.50 - 10.80 | [facility] | | | COUNT | | K/cu mm | LABORATORY | | | | | | SERVICES, | | | | | | CORE | | + + + + + + | RED CELL | 2.83 (L) | 4.50 - 6.00 | [facility] | | | COUNT | | M/cu mm | LABORATORY | | | | | | SERVICES, | | | | | | CORE | | + + + + + + | HEMOGLOBIN | 9.1 (L) | 13.5 - 17.5 | [facility] | | | | | g/dL | LABORATORY | | | | | | SERVICES, | | | | | | CORE | | + + + + + + | HEMATOCRIT | 26.6 (L) | 41.0 - 53.0 % | [facility] | | | | | | LABORATORY | | | | | | SERVICES, | | | | | | CORE | | + + + + + + | MCV | 94.0 | 80.0 - 96.0 fL | [facility] | | | | | | LABORATORY | | | | | | SERVICES, | | | | | | CORE | | + + + + + + | MCHC | 34.2 | 33.0 - 35.5 | [facility] | | | | | g/dL | LABORATORY | | | | | | SERVICES, | | | | | | CORE | | + + + + + + | RDW SD | 49.6 (H) | 35.1 - 46.3 fL | [facility] | | | | | | LABORATORY | | | | | | SERVICES, | | | | | | CORE | | + + + + + + | PLATELET | 114 (L) | 150 - 400 K/cu | [facility] | | | COUNT | | mm | LABORATORY | | | | | | SERVICES, | | | | | | CORE | | + + + + + + | MPV | 10.9 | 9.7 - 12.3 fL | [facility] | | | | | | LABORATORY | | | | | | SERVICES, | | | | | | CORE | | + + + + + + | NRBC% | 0.0 | 0.0 - 0.3 % | [facility] | | | | | | LABORATORY | | | | | | SERVICES, | | | | | | CORE | | + + + + + + | NRBC# | 0.00 | 0.00 - 0.02 | [facility] | | | | | K/cu mm | LABORATORY | | | | | | SERVICES, | | | | | | CORE | | + + + + + + + + | Specimen | + + | Blood | + + + + + | Narrative | Performed At | + + + | Must be ordered if Coagulopathy Panel is ordered | [facility] | | | LABORATORY | | | SERVICES, CORE | + + + + + + + + | Performing | Address | City/State/Zipcode | Phone Number | | Organization | | | | + + + + + | [facility] | [address] | [place] [address] | | | SERVICES, CORE | [address] | | | + + + + + LACTATE (03/17/2017 8:09 PM PDT) + +-------+ + + + | Component | Value | Ref Range | Performed | Pathologist | | | | | At | Signature | + +-------+ + + + | LACTATE | 1.6 | mmol/L | [facility] | | | | | | LABORATORY | | | | | | SERVICES, | | | | | | CORE | | + +-------+ + + + + + | Specimen | + + | Blood | + + + + + | Narrative | Performed At | + + + | Reference Range: Venous blood: 0.5 - 2.2 mmol/L Critical | [facility] | | >= 4.0 mmol/L Arterial blood: 0.5 - 1.6 mmol/L Critical >= 4.0 | LABORATORY | | mmol/L | [facility]TO[facility] | + + + + + + + + | Performing | Address | City/State/Zipcode | Phone Number | | Organization | | | | + + + + + | [facility] | [address] | [place] [address] | | | ИРИНА ANTOINE | [address] | | | + + + + + LDH TOTAL, PLASMA (03/17/2017 8:09 PM PDT) + + + + + + | Component | Value | Ref Range | Performed | Pathologist | | | | | At | Signature | + + + + + + | LD TOTAL, | 1,286 (H) | <=250 U/L | [facility] | | | PLASMA | | | LABORATORY | | | | | | SERVICES, | | | | | | CORE | | + + + + + + | LD CMNT | No Hemo | | [facility] | | | | | | LABORATORY | | | | | | SERVICES, | | | | | | CORE | | + + + + + + + + | Specimen | + + | Blood | + + + + + + + | Performing | Address | City/State/Zipcode | Phone Number | | Organization | | | | + + + + + | [facility] | [address] | [place] [address] | | | SERVICES, CORE | [address] | | | + + + + + CK, PLASMA (03/17/2017 8:09 PM PDT) + + + + + + | Component | Value | Ref Range | Performed | Pathologist | | | | | At | Signature | + + + + + + | CK | 15,778 (H) | 49 - 397 U/L | [facility] | | | | | | LABORATORY | | | | | | SERVICES, | | | | | | CORE | | + + + + + + + + | Specimen | + + | Blood | + + + + + + + | Performing | Address | City/State/Zipcode | Phone Number | | Organization | | | | + + + + + | [facility] | [address] | [place] [address] | | | ИРИАН ANTOINE | [address] | | | + + + + + BLOOD GASES, ARTERIAL - LAB (03/17/2017 8:09 PM PDT) + + + + + + | Component | Value | Ref Range | Performed | Pathologist | | | | | At | Signature | + + + + + + | PAT TEMP | 38.3 | Degree C | [facility] | | | ARTERIAL | | | LABORATORY | | | | | | SERVICES, | | | | | | CORE | | + + + + + + | FIO2 | 0.40 | | [facility] | | | ARTERIAL | | | LABORATORY | | | | | | SERVICES, | | | | | | CORE | | + + + + + + | PH ARTERIAL | 7.50 (H) | 7.37 - 7.44 | [facility] | | | | | | LABORATORY | | | | | | SERVICES, | | | | | | CORE | | + + + + + + | PCO2 | 33 | 32 - 43 mmHg | [facility] | | | ARTERIAL | | | LABORATORY | | | | | | SERVICES, | | | | | | CORE | | + + + + + + | PO2 | 66 (L) | 72 - 104 mmHg | [facility] | | | ARTERIAL | | | LABORATORY | | | | | | SERVICES, | | | | | | CORE | | + + + + + + | HCO3 | 25 | 21 - 28 mmol/L | [facility] | | | ARTERIAL | | | LABORATORY | | | | | | SERVICES, | | | | | | CORE | | + + + + + + | TOTAL CO2 | 26 | 22 - 28 mmol/L | [facility] | | | ARTERIAL | | | LABORATORY | | | | | | SERVICES, | | | | | | CORE | | + + + + + + | BASE EXCESS | 3.0 | mmol/L | [facility] | | | ARTERIAL | | | LABORATORY | | | | | | SERVICES, | | | | | | CORE | | + + + + + + | O2 SAT, | 92.1 | 92.0 - 98.0 % | [facility] | | | ARTERIAL | | | LABORATORY | | | | | | SERVICES, | | | | | | CORE | | + + + + + + | PAO2/FIO2 | 165 (L) | >300 mmHg | [facility] | | | RATIO | | | LABORATORY | | | | | | SERVICES, | | | | | | CORE | | + + + + + + + + | Specimen | + + | Blood | + + + + + + + | Performing | Address | City/State/Zipcode | Phone Number | | Organization | | | | + + + + + | [facility] | [address] | [place] [address] | | | SERVICES, CORE | [address] | | | + + + + + CAPILLARY BLOOD GLUCOSE (NO CHG), POC (03/17/2017 7:27 PM PDT) + +---------+ + + + | Component | Value | Ref Range | Performed | Pathologist | | | | | At | Signature | + +---------+ + + + | BLOOD | 140 (H) | 60 - 99 mg/dL | [facility] - | | | GLUCOSE, | | | [facility] | | | POC | | | [facility] | | | | | | [facility] CARE | | | | | | TESTS | | + +---------+ + + + + + | Specimen | + + | | + + + + + + + | Performing | Address | City/State/Zipcode | Phone Number | | Organization | | | | + + + + + | [facility] | [address] | [place], [place] | | | [facility] | [address] | [address] | | | TESTS | | | | + + + + + CAPILLARY BLOOD GLUCOSE (NO CHG), POC (03/17/2017 6:23 PM PDT) + +---------+ + + + | Component | Value | Ref Range | Performed | Pathologist | | | | | At | Signature | + +---------+ + + + | BLOOD | 128 (H) | 60 - 99 mg/dL | [facility] | | | GLUCOSE, | | | [place] | | | POC | | | [facility] | | | | | | OF CARE | | | | | | TESTS | | + +---------+ + + + + + | Specimen | + + | | + + + + + + + | Performing | Address | City/State/Zipcode | Phone Number | | Organization | | | | + + + + + | [facility] | [address] | [place], [place] | | | [facility] | [address] | [address] | | | TESTS | | | | + + + + + BLOOD GASES, ARTERIAL - LAB (03/17/2017 6:23 PM PDT) + + + + + + | Component | Value | Ref Range | Performed | Pathologist | | | | | At | Signature | + + + + + + | PAT TEMP | 37.9 | Degree C | [facility] | | | ARTERIAL | | | LABORATORY | | | | | | SERVICES, | | | | | | CORE | | + + + + + + | FIO2 | 1.00 | | [facility] | | | ARTERIAL | | | LABORATORY | | | | | | SERVICES, | | | | | | CORE | | + + + + + + | PH ARTERIAL | 7.52 (H) | 7.37 - 7.44 | [facility] | | | | | | LABORATORY | | | | | | SERVICES, | | | | | | CORE | | + + + + + + | PCO2 | 34 | 32 - 43 mmHg | [facility] | | | ARTERIAL | | | LABORATORY | | | | | | SERVICES, | | | | | | CORE | | + + + + + + | PO2 | 58 (L) | 72 - 104 mmHg | [facility] | | | ARTERIAL | | | LABORATORY | | | | | | SERVICES, | | | | | | CORE | | + + + + + + | HCO3 | 27 | 21 - 28 mmol/L | [facility] | | | ARTERIAL | | | LABORATORY | | | | | | SERVICES, | | | | | | CORE | | + + + + + + | TOTAL CO2 | 28 | 22 - 28 mmol/L | [facility] | | | ARTERIAL | | | LABORATORY | | | | | | SERVICES, | | | | | | CORE | | + + + + + + | BASE EXCESS | 4.3 | mmol/L | [facility] | | | ARTERIAL | | | LABORATORY | | | | | | SERVICES, | | | | | | CORE | | + + + + + + | O2 SAT, | 90.9 (L) | 92.0 - 98.0 % | [facility] | | | ARTERIAL | | | LABORATORY | | | | | | SERVICES, | | | | | | CORE | | + + + + + + | PAO2/FIO2 | 58 (L) | >300 mmHg | [facility] | | | [facility] | | | LABORATORY | | | | | | SERVICES, | | | | | | CORE | | + + + + + + + + | Specimen | + + | Blood | + + + + + + + | Performing | Address | City/State/Zipcode | Phone Number | | Organization | | | | + + + + + | [facility] | [address] | [place] [address] | | | SERVICES, CORE | [address] | | | + + + + + CAPILLARY BLOOD GLUCOSE (NO CHG), POC (03/17/2017 5:07 PM PDT) + +---------+ + + + | Component | Value | Ref Range | Performed | Pathologist | | | | | At | Signature | + +---------+ + + + | BLOOD | 139 (H) | 60 - 99 mg/dL | [facility] - | | | GLUCOSE, | | | [facility] | | | POC | | | [facility] | | | | | | OF CARE | | | | | | TESTS | | + +---------+ + + + + + | Specimen | + + | | + + + + + + + | Performing | Address | City/State/Zipcode | Phone Number | | Organization | | | | + + + + + | [facility] | [address] | [place], [place] | | | [facility] | [address] | [address] | | | TESTS | | | | + + + + + CAPILLARY BLOOD GLUCOSE (NO CHG), POC (03/17/2017 4:00 PM PDT) + +---------+ + + + | Component | Value | Ref Range | Performed | Pathologist | | | | | At | Signature | + +---------+ + + + | BLOOD | 123 (H) | 60 - 99 mg/dL | [facility] - | | | GLUCOSE, | | | [place] | | | POC | | | [facility] | | | | | | OF CARE | | | | | | TESTS | | + +---------+ + + + + + | Specimen | + + | | + + + + + + + | Performing | Address | City/State/Zipcode | Phone Number | | Organization | | | | + + + + + | [facility] | [address] | [place], [place] | | | [facility] | [address] | [address] | | | TESTS | | | | + + + + + PRODUCT - RED CELLS LEUKOREDUCED (03/17/2017 3:19 PM PDT) + + + + + + | Component | Value | Ref Range | Performed | Pathologist | | | | | At | Signature | + + + + + + | PRODUCT | -3 RED BLOOD CELLS | | [facility] | | | DESCRIPTION | ADENINE-SALINE ADDED | | LABORATORY | | | | LEUKOCYT | | SERVICES, | | | | | | TRANSFUSION | | | | | | MEDICINE | | + + + + + + | PRODUCT | [id number] | | [facility] | | | UNIT # | | | LABORATORY | | | | | | SERVICES, | | | | | | TRANSFUSION | | | | | | MEDICINE | | + + + + + + | UNIT ABO | O | | [facility] | | | | | | LABORATORY | | | | | | SERVICES, | | | | | | TRANSFUSION | | | | | | MEDICINE | | + + + + + + | UNIT RH | POS | | [facility] | | | | | | LABORATORY | | | | | | SERVICES, | | | | | | TRANSFUSION | | | | | | MEDICINE | | + + + + + + | STATUS OF | Presumed Transfused | | [facility] | | | UNIT | | | LABORATORY | | | | | | SERVICES, | | | | | | TRANSFUSION | | | | | | MEDICINE | | + + + + + + | EXPIRATION | [id number] | | [facility] | | | DATE | | | LABORATORY | | | | | | SERVICES, | | | | | | TRANSFUSION | | | | | | MEDICINE | | + + + + + + | BLOOD TYPE | 5100 | | [facility] | | | BARCODE | | | LABORATORY | | | | | | SERVICES, | | | | | | TRANSFUSION | | | | | | MEDICINE | | + + + + + + | BLOOD | [id number] | | [facility] | | | PRODUCT | | | LABORATORY | | | CODE | | | SERVICES, | | | | | | TRANSFUSION | | | | | | MEDICINE | | + + + + + + + + | Specimen | + + | | + + + + + + + | Performing | Address | City/State/Zipcode | Phone Number | | Organization | | | | + + + + + | [facility] | [address] | [place] [address] | | | SERVICES, | [address] | | | | TRANSFUSION MEDICINE | | | | + + + + + PRODUCT - RED CELLS LEUKOREDUCED (03/17/2017 3:19 PM PDT) + + + + + + | Component | Value | Ref Range | Performed | Pathologist | | | | | At | Signature | + + + + + + | PRODUCT | -1 RED BLOOD CELL | | [facility] | | | DESCRIPTION | ADENINE-SALINE ADDED | | LABORATORY | | | | LEUKOCYTE | | SERVICES, | | | | | | TRANSFUSION | | | | | | MEDICINE | | + + + + + + | PRODUCT | [id number] | | [facility] | | | UNIT # | | | LABORATORY | | | | | | SERVICES, | | | | | | TRANSFUSION | | | | | | MEDICINE | | + + + + + + | UNIT ABO | O | | [facility] | | | | | | LABORATORY | | | | | | SERVICES, | | | | | | TRANSFUSION | | | | | | MEDICINE | | + + + + + + | UNIT RH | POS | | [facility] | | | | | | LABORATORY | | | | | | SERVICES, | | | | | | TRANSFUSION | | | | | | MEDICINE | | + + + + + + | STATUS OF | Returned to Blood Bank | | [facility] | | | UNIT | | | LABORATORY | | | | | | SERVICES, | | | | | | TRANSFUSION | | | | | | MEDICINE | | + + + + + + | EXPIRATION | [id number] | | [facility] | | | DATE | | | LABORATORY | | | | | | SERVICES, | | | | | | TRANSFUSION | | | | | | MEDICINE | | + + + + + + | BLOOD TYPE | 5100 | | [facility] | | | BARCODE | | | LABORATORY | | | | | | SERVICES, | | | | | | TRANSFUSION | | | | | | MEDICINE | | + + + + + + | BLOOD | [id number] | | [facility] | | | PRODUCT | | | LABORATORY | | | CODE | | | SERVICES, | | | | | | TRANSFUSION | | | | | | MEDICINE | | + + + + + + + + | Specimen | + + | | + + + + + + + | Performing | Address | City/State/Zipcode | Phone Number | | Organization | | | | + + + + + | [facility] | [address] | [place] [address] | | | SERVICES, | [address] | | | | TRANSFUSION MEDICINE | | | | + + + + + CAPILLARY BLOOD GLUCOSE (NO CHG), POC (03/17/2017 2:36 PM PDT) + +---------+ + + + | Component | Value | Ref Range | Performed | Pathologist | | | | | At | Signature | + +---------+ + + + | BLOOD | 132 (H) | 60 - 99 mg/dL | [facility] - | | | GLUCOSE, | | | [facility] | | | POC | | | [facility] | | | | | | OF CARE | | | | | | TESTS | | + +---------+ + + + + + | Specimen | + + | | + + + + + + + | Performing | Address | City/State/Zipcode | Phone Number | | Organization | | | | + + + + + | [facility] | [address] | [place], [place] | | | [facility] | [facility] | [address] | | | TESTS | | | | + + + + + CBC (HEMOGRAM) ONLY (03/17/2017 2:27 PM PDT) + + + + + + | Component | Value | Ref Range | Performed | Pathologist | | | | | At | Signature | + + + + + + | WHITE CELL | 14.22 (H) | 3.50 - 10.80 | [facility] | | | COUNT | | K/cu mm | LABORATORY | | | | | | SERVICES, | | | | | | CORE | | + + + + + + | RED CELL | 2.71 (L) | 4.50 - 6.00 | [facility] | | | COUNT | | M/cu mm | LABORATORY | | | | | | SERVICES, | | | | | | CORE | | + + + + + + | HEMOGLOBIN | 8.7 (L) | 13.5 - 17.5 | [facility] | | | | | g/dL | LABORATORY | | | | | | SERVICES, | | | | | | CORE | | + + + + + + | HEMATOCRIT | 25.0 (L) | 41.0 - 53.0 % | [facility] | | | | | | LABORATORY | | | | | | SERVICES, | | | | | | CORE | | + + + + + + | MCV | 92.3 | 80.0 - 96.0 fL | [facility] | | | | | | LABORATORY | | | | | | SERVICES, | | | | | | CORE | | + + + + + + | MCHC | 34.8 | 33.0 - 35.5 | [facility] | | | | | g/dL | LABORATORY | | | | | | SERVICES, | | | | | | CORE | | + + + + + + | RDW SD | 48.8 (H) | 35.1 - 46.3 fL | [facility] | | | | | | LABORATORY | | | | | | SERVICES, | | | | | | CORE | | + + + + + + | PLATELET | 68 (L) | 150 - 400 K/cu | [facility] | | | COUNT | | mm | LABORATORY | | | | | | SERVICES, | | | | | | CORE | | + + + + + + | MPV | 11.4 | 9.7 - 12.3 fL | [facility] | | | | | | LABORATORY | | | | | | SERVICES, | | | | | | CORE | | + + + + + + | NRBC% | 0.0 | 0.0 - 0.3 % | [facility] | | | | | | LABORATORY | | | | | | SERVICES, | | | | | | CORE | | + + + + + + | NRBC# | 0.00 | 0.00 - 0.02 | [facility] | | | | | K/cu mm | LABORATORY | | | | | | SERVICES, | | | | | | CORE | | + + + + + + + + | Specimen | + + | Blood | + + + + + | Narrative | Performed At | + + + | Must be ordered if Coagulopathy Panel is ordered | [facility] | | | LABORATORY | | | SERVICES, CORE | + + + + + + + + | Performing | Address | City/State/Zipcode | Phone Number | | Organization | | | | + + + + + | [facility] | [address] | [place] [address] | | | SERVICES, [place] | [address] | | | + + + + + HEPARIN, EITHER STANDARD / LMW, BLOOD (03/17/2017 2:23 PM PDT) + +-------+ + + + | Component | Value | Ref Range | Performed | Pathologist | | | | | At | Signature | + +-------+ + + + | HEPARIN, | 0.31 | U/mL | [facility] | | | STD LMW | | | LABORATORY | | | | | | SERVICES, | | | | | | CORE | | + +-------+ + + + + + | Specimen | + + | Blood | + + + + + | Narrative | Performed At | + + + | Must order with concurrent CBC LVAD/Advanced Heart Failure | [facility] | | Heparin Protocol Heparin level 6 hrs after every heparin rate | LABORATORY | | change; If heparin level within target range for 2 consecutive | SERVICES, CORE | | results, recheck every AM. Heparin, Either STD/LMW - Therapeutic | | | Ranges: Heparin, Unfractionated: 0.35 - 0.70 U/mL Enoxaparin, | | | LMWH: 0.70 - 1.20 U/mL Dalteparin, | | | LMWH: 0.70 - 1.20 U/mL Tinzaparin, | | | LMWH: Therapeutic range not established. | | | Preliminary | | | studies suggest range | | | similar to | | | dalteparin. Clinical | | | correlation | | | required. Heparin levels may be unreliable for: | | | Total bilirubin | | | >28.8 mg/dL | | | Triglycerides | | | >690 mg/dL or | | | Moderate to Gross Hemolysis | | + + + + + + + + | Performing | Address | City/State/Zipcode | Phone Number | | Organization | | | | + + + + + | [facility] | [address] | [place] [address] | | | SERVICES, CORE | [address] | | | + + + + + LACTATE (03/17/2017 2:23 PM PDT) + +-------+ + + + | Component | Value | Ref Range | Performed | Pathologist | | | | | At | Signature | + +-------+ + + + | LACTATE | 1.8 | mmol/L | [facility] | | | | | | LABORATORY | | | | | | SERVICES, | | | | | | CORE | | + +-------+ + + + + + | Specimen | + + | Blood | + + + + + | Narrative | Performed At | + + + | Reference Range: Venous blood: 0.5 - 2.2 mmol/L Critical | [facility] | | >= 4.0 mmol/L Arterial blood: 0.5 - 1.6 mmol/L Critical >= 4.0 | LABORATORY | | mmol/L | SERVICES, CORE | + + + + + + + + | Performing | Address | City/State/Zipcode | Phone Number | | Organization | | | | + + + + + | [facility] | [address] | [place] [address] | | | SERVICES, CORE | [address] | | | + + + + + BLOOD GASES, VENOUS - LAB (03/17/2017 2:23 PM PDT) + + + + + + | Component | Value | Ref Range | Performed | Pathologist | | | | | At | Signature | + + + + + + | PH VENOUS | 7.47 (H) | 7.35 - 7.45 | [facility] | | | | | | LABORATORY | | | | | | SERVICES, | | | | | | CORE | | + + + + + + | PCO2 VENOUS | 39 | 35 - 50 mmHg | [facility] | | | | | | LABORATORY | | | | | | SERVICES, | | | | | | CORE | | + + + + + + | PO2 VENOUS | 32 | 30 - 55 mmHg | [facility] | | | | | | LABORATORY | | | | | | SERVICES, | | | | | | CORE | | + + + + + + | HCO3 VENOUS | 28 | 22 - 28 mmol/L | [facility] | | | | | | LABORATORY | | | | | | SERVICES, | | | | | | CORE | | + + + + + + | BASE EXCESS | 4.4 | mmol/L | [facility] | | | VENOUS | | | LABORATORY | | | | | | SERVICES, | | | | | | CORE | | + + + + + + | O2 SAT, | 62.1 | No range has | [facility] | | | VENOUS | | been | LABORATORY | | | | | established % | SERVICES, | | | | | | CORE | | + + + + + + | TOTAL CO2 | 29 | 23 - 29 mmol/L | [facility] | | | VENOUS | | | LABORATORY | | | | | | SERVICES, | | | | | | CORE | | + + + + + + + + | Specimen | + + | Blood | + + + + + + + | Performing | Address | City/State/Zipcode | Phone Number | | Organization | | | | + + + + + | [facility] | [address] | [place] [address] | | | SERVICES, CORE | [address] | | | + + + + + RENAL FUNCTION SET (NA,K,CL,CO2,BUN,CREAT,GLUC,CA,PHOS,ALB ) (03/17/2017 2:23 PM PDT) + + + + + + | Component | Value | Ref Range | Performed | Pathologist | | | | | At | Signature | + + + + + + | GLUCOSE, | 126 (H) | 60 - 99 mg/dL | [facility] | | | PLASMA | | | LABORATORY | | | (LAB) | | | SERVICES, | | | | | | CORE | | + + + + + + | BUN, PLASMA | 23 (H) | 6 - 20 mg/dL | [facility] | | | (LAB) | | | LABORATORY | | | | | | SERVICES, | | | | | | CORE | | + + + + + + | CREATININE | 1.38 (H) | 0.70 - 1.30 | [facility] | | | PLASMA | | mg/dL | LABORATORY | | | (LAB) | | | SERVICES, | | | | | | CORE | | + + + + + + | EGFR | >60 | >60 mL/min | [facility] | | | - | | | LABORATORY | | | SLOVENIAN | | | SERVICES, | | | | | | CORE | | + + + + + + | EGFR NON | 52 (L) | >60 mL/min | [facility] | | | -SOREN | | | LABORATORY | | | RICAN | | | SERVICES, | | | | | | CORE | | + + + + + + | SODIUM, | 141 | 136 - 145 | [facility] | | | PLASMA | | mmol/L | LABORATORY | | | (LAB) | | | SERVICES, | | | | | | CORE | | + + + + + + | POTASSIUM, | 4.0 | 3.4 - 5.0 | [facility] | | | PLASMA | | mmol/L | LABORATORY | | | (LAB) | | | SERVICES, | | | | | | CORE | | + + + + + + | CHLORIDE, | 108 | 97 - 108 mmol/L | [facility] | | | PLASMA | | | LABORATORY | | | (LAB) | | | SERVICES, | | | | | | CORE | | + + + + + + | TOTAL CO2, | 26 | 21 - 32 mmol/L | [facility] | | | PLASMA | | | LABORATORY | | | (LAB) | | | SERVICES, | | | | | | CORE | | + + + + + + | CALCIUM, | 7.7 (L) | 8.6 - 10.2 | [facility] | | | PLASMA | | mg/dL | LABORATORY | | | (LAB) | | | SERVICES, | | | | | | CORE | | + + + + + + | CALCIUM(ALB | 9.2 | 8.6 - 10.2 | [facility] | | | CORRECTED) | | mg/dL | LABORATORY | | | | | | SERVICES, | | | | | | CORE | | + + + + + + | ALBUMIN, | 2.1 (L) | 3.5 - 4.7 g/dL | [facility] | | | PLASMA | | | LABORATORY | | | (LAB) | | | SERVICES, | | | | | | CORE | | + + + + + + | PHOSPHORUS, | 2.0 (L) | 2.4 - 4.7 mg/dL | [facility] | | | PLASMA | | | LABORATORY | | | (LAB) | | | SERVICES, | | | | | | CORE | | + + + + + + | POTASSIUM | No Hemo | | [facility] | | | CMNT | | | LABORATORY | | | | | | SERVICES, | | | | | | CORE | | + + + + + + | ANION GAP | 7 | mmol/L | [facility] | | | | | | LABORATORY | | | | | | SERVICES, | | | | | | CORE | | + + + + + + | ANION | 11 | 4 - 11 mmol/L | [facility] | | | GAP(ALB | | | LABORATORY | | | CORRECTED) | | | SERVICES, | | | | | | CORE | | + + + + + + + + | Specimen | + + | Blood | + + + + + | Narrative | Performed At | + + + | GFR is estimated using the MDRD equation recommended by the | [facility] | | National Kidney Disease Education Program. Estimated GFR | LABORATORY | | Interpretive Information: <60 mL/min/1.73 sq | SERVICES, CORE | | m Chronic Kidney Disease <15 mL/min/1.73 | | | sq m Kidney Failure Estimated GFR greater | | | that 60 mL/min/1.73 sq m is of limited clinical value. The MDRD | | | equation is not valid in the following situations: - Patients under | | | 18 years of age - Severe malnutrition or obesity - Vegetarian diet | | | - Rapidly changing kidney function | | + + + + + + + + | Performing | Address | City/State/Zipcode | Phone Number | | Organization | | | | + + + + + | [facility] | [address] | [place] [address] | | | [facility] ANTOINE | [address] | | | + + + + + COAGULOPATHY PANEL (INR,APTT,FIBRINOGEN) (03/17/2017 2:23 PM PDT) + + + + + + | Component | Value | Ref Range | Performed | Pathologist | | | | | At | Signature | + + + + + + | INR | 1.32 (H) | 0.90 - 1.20 INR | [facility] | | | | | | LABORATORY | | | | | | SERVICES, | | | | | | CORE | | + + + + + + | APTT | 98.0 (H) | 26.0 - 36.0 | [facility] | | | | | seconds | LABORATORY | | | | | | SERVICES, | | | | | | CORE | | + + + + + + | FIBRINOGEN | 681 (H) | 200 - 450 mg/dL | [facility] | | | LEVEL | | | LABORATORY | | | | | | SERVICES, | | | | | | CORE | | + + + + + + + + | Specimen | + + | Blood | + + + + + | Narrative | Performed At | + + + | Must order with concurrent CBC LVAD/Advanced Heart Failure | [facility] | | Heparin Protocol Heparin level 6 hrs after every heparin rate | LABORATORY | | change; If heparin level within target range for 2 consecutive | SERVICES, CORE | | results, recheck every AM. INR Therapeutic ranges for full | | | anticoagulation: INR for Venous | | | Thromboembolism (2.0 - 3.0) INR INR for | | | most patients with mech. valves (2.5 - 3.5) INR APTT | | | Therapeutic Range: (75 - 120) | | | sec Heparin levels of 0.35 - 0.7 U/mL | | + + + + + + + + | Performing | Address | City/State/Zipcode | Phone Number | | Organization | | | | + + + + + | [facility] | [address] | [place] [address] | | | ИР[facility]НА ANTOINE | [address] | | | + + + + + BLOOD GASES, ARTERIAL - LAB (03/17/2017 2:23 PM PDT) + + + + + + | Component | Value | Ref Range | Performed | Pathologist | | | | | At | Signature | + + + + + + | PAT TEMP | 37.5 | Degree C | [facility] | | | ARTERIAL | | | LABORATORY | | | | | | SERVICES, | | | | | | CORE | | + + + + + + | FIO2 | 1.00 | | [facility] | | | ARTERIAL | | | LABORATORY | | | | | | SERVICES, | | | | | | CORE | | + + + + + + | PH ARTERIAL | 7.51 (H) | 7.37 - 7.44 | [facility] | | | | | | LABORATORY | | | | | | SERVICES, | | | | | | CORE | | + + + + + + | PCO2 | 34 | 32 - 43 mmHg | [facility] | | | ARTERIAL | | | LABORATORY | | | | | | SERVICES, | | | | | | CORE | | + + + + + + | PO2 | 505 (H) | 72 - 104 mmHg | [facility] | | | ARTERIAL | | | LABORATORY | | | | | | SERVICES, | | | | | | CORE | | + + + + + + | HCO3 | 27 | 21 - 28 mmol/L | [facility] | | | ARTERIAL | | | LABORATORY | | | | | | SERVICES, | | | | | | CORE | | + + + + + + | TOTAL CO2 | 28 | 22 - 28 mmol/L | [facility] | | | ARTERIAL | | | LABORATORY | | | | | | SERVICES, | | | | | | CORE | | + + + + + + | BASE EXCESS | 3.7 | mmol/L | [facility] | | | ARTERIAL | | | LABORATORY | | | | | | SERVICES, | | | | | | CORE | | + + + + + + | O2 SAT, | 100.0 (H) | 92.0 - 98.0 % | [facility] | | | ARTERIAL | | | LABORATORY | | | | | | SERVICES, | | | | | | CORE | | + + + + + + | PAO2/FIO2 | 505 | >300 mmHg | [facility] | | | RATIO | | | LABORATORY | | | | | | SERVICES, | | | | | | CORE | | + + + + + + + + | Specimen | + + | Blood | + + + + + + + | Performing | Address | City/State/Zipcode | Phone Number | | Organization | | | | + + + + + | [facility] | [address] | [place] [address] | | | SERVICES, [place]А | [address] | | | + + + + + BLOOD GASES, ARTERIAL - LAB (03/17/2017 2:23 PM PDT) + + + + + + | Component | Value | Ref Range | Performed | Pathologist | | | | | At | Signature | + + + + + + | PAT TEMP | 37.5 | Degree C | [facility] | | | ARTERIAL | | | LABORATORY | | | | | | SERVICES, | | | | | | CORE | | + + + + + + | FIO2 | 1.00 | | [facility] | | | ARTERIAL | | | LABORATORY | | | | | | SERVICES, | | | | | | CORE | | + + + + + + | PH ARTERIAL | 7.53 (H) | 7.37 - 7.44 | [facility] | | | | | | LABORATORY | | | | | | SERVICES, | | | | | | CORE | | + + + + + + | PCO2 | 32 | 32 - 43 mmHg | [facility] | | | ARTERIAL | | | LABORATORY | | | | | | SERVICES, | | | | | | CORE | | + + + + + + | PO2 | 115 (H) | 72 - 104 mmHg | [facility] | | | ARTERIAL | | | LABORATORY | | | | | | SERVICES, | | | | | | CORE | | + + + + + + | HCO3 | 26 | 21 - 28 mmol/L | [facility] | | | ARTERIAL | | | LABORATORY | | | | | | SERVICES, | | | | | | CORE | | + + + + + + | TOTAL CO2 | 27 | 22 - 28 mmol/L | [facility] | | | ARTERIAL | | | LABORATORY | | | | | | SERVICES, | | | | | | CORE | | + + + + + + | BASE EXCESS | 3.9 | mmol/L | [facility] | | | ARTERIAL | | | LABORATORY | | | | | | SERVICES, | | | | | | CORE | | + + + + + + | O2 SAT, | 98.7 (H) | 92.0 - 98.0 % | [facility] | | | ARTERIAL | | | LABORATORY | | | | | | SERVICES, | | | | | | CORE | | + + + + + + | PAO2/FIO2 | 115 (L) | >300 mmHg | [facility] | | | RATIO | | | LABORATORY | | | | | | SERVICES, | | | | | | CORE | | + + + + + + + + | Specimen | + + | Blood | + + + + + + + | Performing | Address | City/State/Zipcode | Phone Number | | Organization | | | | + + + + + | [facility] | [address] | [place] [address] | | | SERVICES, CORE | [address] | | | + + + + + CAPILLARY BLOOD GLUCOSE (NO CHG), POC (03/17/2017 1:33 PM PDT) + +---------+ + + + | Component | Value | Ref Range | Performed | Pathologist | | | | | At | Signature | + +---------+ + + + | BLOOD | 130 (H) | 60 - 99 mg/dL | [facility] - | | | GLUCOSE, | | | [facility] | | | POC | | | [facility] | | | | | | OF CARE | | | | | | TESTS | | + +---------+ + + + + + | Specimen | + + | | + + + + + + + | Performing | Address | City/State/Zipcode | Phone Number | | Organization | | | | + + + + + | [facility] | [address] | [place], [place] | | | [facility] | [address] | [address] | | | TESTS | | | | + + + + + BLOOD GASES, ARTERIAL - LAB (03/17/2017 1:29 PM PDT) + + + + + + | Component | Value | Ref Range | Performed | Pathologist | | | | | At | Signature | + + + + + + | PAT TEMP | 37.6 | Degree C | [facility] | | | ARTERIAL | | | LABORATORY | | | | | | SERVICES, | | | | | | CORE | | + + + + + + | FIO2 | 1.00 | | [facility] | | | ARTERIAL | | | LABORATORY | | | | | | SERVICES, | | | | | | CORE | | + + + + + + | PH ARTERIAL | 7.54 (H) | 7.37 - 7.44 | [facility] | | | | | | LABORATORY | | | | | | SERVICES, | | | | | | CORE | | + + + + + + | PCO2 | 32 | 32 - 43 mmHg | [facility] | | | ARTERIAL | | | LABORATORY | | | | | | SERVICES, | | | | | | CORE | | + + + + + + | PO2 | 62 (L) | 72 - 104 mmHg | [facility] | | | ARTERIAL | | | LABORATORY | | | | | | SERVICES, | | | | | | CORE | | + + + + + + | HCO3 | 27 | 21 - 28 mmol/L | [facility] | | | ARTERIAL | | | LABORATORY | | | | | | SERVICES, | | | | | | CORE | | + + + + + + | TOTAL CO2 | 28 | 22 - 28 mmol/L | [facility] | | | ARTERIAL | | | LABORATORY | | | | | | SERVICES, | | | | | | CORE | | + + + + + + | BASE EXCESS | 4.8 | mmol/L | [facility] | | | ARTERIAL | | | LABORATORY | | | | | | SERVICES, | | | | | | CORE | | + + + + + + | O2 SAT, | 92.6 | 92.0 - 98.0 % | [facility] | | | ARTERIAL | | | LABORATORY | | | | | | SERVICES, | | | | | | CORE | | + + + + + + | PAO2/FIO2 | 62 (L) | >300 mmHg | [facility] | | | RATIO | | | LABORATORY | | | | | | SERVICES, | | | | | | CORE | | + + + + + + + + | Specimen | + + | Blood | + + + + + + + | Performing | Address | City/State/Zipcode | Phone Number | | Organization | | | | + + + + + | [facility] | [address] | [place] [address] | | | SERVICES, [place] | [address] | | | + + + + + CAPILLARY BLOOD GLUCOSE (NO CHG), POC (03/17/2017 12:41 PM PDT) + +---------+ + + + | Component | Value | Ref Range | Performed | Pathologist | | | | | At | Signature | + +---------+ + + + | BLOOD | 142 (H) | 60 - 99 mg/dL | [facility] - | | | GLUCOSE, | | | [facility] | | | POC | | | [facility] | | | | | | OF CARE | | | | | | TESTS | | + +---------+ + + + + + | Specimen | + + | | + + + + + + + | Performing | Address | City/State/Zipcode | Phone Number | | Organization | | | | + + + + + | [facility] | [address] | [place] | | | [facility] [place] [place] | [address] | [address] | | | TESTS | | | | + + + + + [facility] DUPLEX LOWER EXTREMITY RT (03/17/2017 12:31 PM PDT) + + | Specimen | + + | | + + + + + | Narrative | Performed At | + + + | Right: The duplex scanner was used to examine the external iliac, | [facility] | | common femoral, profunda femoris, and superficial femoral arteries of | [facility]Y [facility] | | the right groin and the venous system of the right groin for aneurysm, | [place] | | pseudo aneurysm, or arterial venous fistula. The right external | | | iliac artery has a diameter of 0.80 cm and a peak systolic velocity of | | | 222 cm/s. Common femoral artery has a diameter of 0.85 cm and a peak | | | systolic velocity of 182 cm/s. Profunda femoris artery has a peak | | | systolic velocity of 80 cm/s and the superficial femoral artery a | | | diameter of 0.54 cm and a peak systolic velocity of 107 cm/s. The | | | venous system of the right groin is patent with normal flow and | | | responses with augmentation and compression maneuvers. There is no | | | aneurysm, pseudoaneurysm, or arterial venous fistula detected in the | | | right groin region. Conclusions: Duplex examination of | | | the arteries and veins of the right groin without evidence of arterial | | | stenosis, aneurysm, pseudo aneurysm, venous thrombosis, or arterial | | | venous fistula. I have personally reviewed the images | | | and, if necessary, edited the report. I agree with the report as | | | now presented. | | + + + + + | Procedure Note | + + | Service Account, [employer] [facility] - 03/17/2017 6:18 PM PDT Right: The duplex | | scanner was used to examine the external iliac, common femoral, profunda femoris, and | | superficial femoral arteries of the right groin and the venous system of the right groin | | for aneurysm, pseudo aneurysm, or arterial venous fistula. The right external iliac | | artery has a diameter of 0.80 cm and a peak systolic velocity of 222 cm/s. Common | | femoral artery has a diameter of 0.85 cm and a peak systolic velocity of 182 cm/s. | | Profunda femoris artery has a peak systolic velocity of 80 cm/s and the superficial | | femoral artery a diameter of 0.54 cm and a peak systolic velocity of 107 cm/s. The | | venous system of the right groin is patent with normal flow and responses with | | augmentation and compression maneuvers. There is no aneurysm, pseudoaneurysm, or | | arterial venous fistula detected in the right groin region. Conclusions: Duplex | | examination of the arteries and veins of the right groin without evidence of arterial | | stenosis, aneurysm, pseudo aneurysm, venous thrombosis, or arterial venous fistula.I | | have personally reviewed the images and, if necessary, edited the report. I agree with | | the report as now presented. | + + + +---------+ + + | Performing | Address | City/State[facility] | Phone Number | | Organization | | | | + +---------+ + + | [facility] | | | | | VASC US | | | | + +---------+ + + [facility]ASC LAB ABDOMINAL DUPLEX LTD ARTERY VEIN (03/17/2017 12:31 PM PDT) + + | Specimen | + + | | + + + + + | Narrative | Performed At | + + + | Aorta: The duplex scanner was used to examine the abdominal aorta | [facility] | | and the right and left common iliac arteries. Maximum diameter of | [facility] | | the infrarenal abdominal aorta is 3.9 cm. The proximal aorta, | [place] | | supra renal aorta and bilateral common iliac arteries could not be | | | visualized secondary to overlying bowel gas. Conclusions: An | | | abnormal examination demonstrating a 3.9 cm infrarenal abdominal | | | aortic aneurysm. The proximal aorta, supra renal aorta and | | | bilateral common iliac arteries could not be visualized secondary to | | | overlying bowel gas. I have personally reviewed the | | | images and, if necessary, edited the report. I agree with the | | | report as now presented. | | + + + + + | Procedure Note | + + | Service Account, [employer] In Interface - 03/17/2017 6:17 PM PDT Aorta: The duplex | | scanner was used to examine the abdominal aorta and the right and left common iliac | | arteries. Maximum diameter of the infrarenal abdominal aorta is 3.9 cm. The proximal | | aorta, supra renal aorta and bilateral common iliac arteries could not be visualized | | secondary to overlying bowel gas.Conclusions: An abnormal examination demonstrating a | | 3.9 cm infrarenal abdominal aortic aneurysm. The proximal aorta, supra renal aorta and | | bilateral common iliac arteries could not be visualized secondary to overlying bowel | | gas.I have personally reviewed the images and, if necessary, edited the report. I agree | | with the report as now presented. | | | |I have personally reviewed the images and, if necessary, edited the report. I agree with t he report as now presented. | + + + +---------+ + + | Performing | Address | City/State/Zipcode | Phone Number | | Organization | | | | + +---------+ + + | [facility] | | | | | VASC US | | | | + +---------+ + + CAPILLARY BLOOD GLUCOSE (NO CHG), POC (03/17/2017 11:30 AM PDT) + +---------+ + + + | Component | Value | Ref Range | Performed | Pathologist | | | | | At | Signature | + +---------+ + + + | BLOOD | 135 (H) | 60 - 99 mg/dL | [facility] | | | GLUCOSE, | | | [facility] | | | POC | | | [facility] | | | | | | OF CARE | | | | | | TESTS | | + +---------+ + + + + + | Specimen | + + | | + + + + + + + | Performing | Address | City/State/Zipcode | Phone Number | | Organization | | | | + + + + + | [facility] | [address] | [place], [place] | | | [facility] | [facility] | [address] | | | TESTS | | | | + + + + + CK, PLASMA (03/17/2017 11:03 AM PDT) + + + + + + | Component | Value | Ref Range | Performed | Pathologist | | | | | At | Signature | + + + + + + | CK | 10,998 (H) | 49 - 397 U/L | [facility] | | | | | | LABORATORY | | | | | | SERVICES, | | | | | | CORE | | + + + + + + + + | Specimen | + + | Blood | + + + + + + + | Performing | Address | City/State/Zipcode | Phone Number | | Organization | | | | + + + + + | [facility] | [address] | [place] [address] | | | SERVICES, CORE | [address] | | | + + + + + TRANSTHORACIC ECHOCARDIOGRAM, ADULT (03/17/2017 10:30 AM PDT) + + + + + + | Component | Value | Ref Range | Performed | Pathologist | | | | | At | Signature | + + + + + + | BIPLANE, EF | 24 | | [facility] | | | | | | OF | | | | | | CARDIOLOGY | | + + + + + + | EJECTION | 20 to 25 | | [facility] | | | FRACTION | | | OF | | | | | | CARDIOLOGY | | + + + + + + | RV TAPSE | 1.4 | | [facility] | | | | | | OF | | | | | | CARDIOLOGY | | + + + + + + | RV TDI S? | 12.0 | | [facility] | | | | | | OF | | | | | | CARDIOLOGY | | + + + + + + | EJECTION | 22.5 | % | [facility] | | | FRACTION | | | OF | | | RANGE MEAN | | | CARDIOLOGY | | | VALUE | | | | | + + + + + + + + | Specimen | + + | | + + + + -------+ | Narrative | Performed At | + + -------+ | [facility] | [facility] DE [facility] OF | | [facility] Adult Echocardiography | CARDIOLOG Y | | Laboratory [address] [place] [address], | | | [place] [address] Pt Name: | | | RON MCKEON Study Date/Time 03/17/2017 / 10:30:26 | | | AMMRN: [id number] Most recent | | | prior: 03/15/2017Acc #: [id number] No. | | | previous echos: 1DOB: 1955 61 years Heart | | | Rate: 139 bpmHeight: 69.0 | | | in Blood Pressure: 133/83 | | | mm/HgWeight: 258.0 | | | lb Gender: | | | MBSA: 2.30 m2 Order | | | ID: [id number] Banquet Captain: Mauri Domingo LORENZO | | | Referring Provider: Mellisa HajiPatient Location: 12K[facility] | | | Performed: Limited 2D, Color Doppler and Spectral Doppler | | | Limited.Study Quality: Fair.Exam Indication: Heart failure; ECMO; s/p | | | STEMIHistory: 61 year old male with a past medical history significant | | | for hypertension, hyperlipidemia, ongoing tobacco use and | | | pre-diabetes who is transferred to [facility] with cardiogenic shock in the | | | setting of an 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 | | | Patient history has been obtained from the EHR Transthoracic | | | Echocardiographic Report | | | + | | | ---------+Final | | | Impressions: | | | | | | | | | | | | | | | | | | 1. The LV ejection fraction is severely | | | decreased. | | | | | | | | | 2. Visually estimated left ventricular ejection fraction | | | is 20 - 25%. 3. Left ventricular systolic thickening | | | is segmentally abnormal (see comments | | | below). | | | 4. Mildly | | | reduced RV systolic function. Normal RV | | | size. 5. No significant | | | valvular abnormalities | | | seen. 6 | | | . Compared to the most recent exam dated, 03/15/2017, there are | | | no significant | | | changes. | | | | | | | | | | | | + | | | ---------+ Description of Findings: Cardiac Rhythm: Tachycardia.Left | | | Ventricle: Visually estimated left ventricular ejection fraction is 20 | | | - 25%. The LV ejection fraction is severely decreased.The ejection | | | fraction is 24.2 % as measured by Landry's biplane method. There is a | | | false tendon in the LV apex.Left Ventricular Wall Motion: The LAD | | | distribution and apical lateral segment are akinetic. The RCA | | | distribution and mid anterolateral segment are hypokinetic. All | | | remaining scored segments are normal. Left ventricular systolic | | | thickening is segmentally abnormal.Atria: Left atrial size is normal. | | | Normal right atrium.Right Ventricle: The right ventricular size is | | | normal. Global RV systolic function is mildly reduced. TAPSE measures | | | 1.4cm. The RV TDI s' velocity is 12cm/sec.Aortic Valve: The aortic | | | valve is normal in structure and function. No indication of aortic | | | valve regurgitation.Mitral Valve: The mitral valve is structurally | | | normal. No evidence of mitral valve regurgitation.Tricuspid Valve: The | | | tricuspid valve is structurally normal. Trace tricuspid | | | regurgitation.Pulmonic Valve: The pulmonic valve is not well | | | visualized.Aorta: Visualized portions of the ascending aorta and | | | aortic root appear normal.Venous: Inferior vena cava is normal with | | | normal inspiratory collapse.Pericardium: There is significant | | | precordial fat pad present. A trivial pericardial effusion is seen.2D | | | Measurements Doppler Measurements | | | 2D NL Values | | | Aortic | | | Mitral LVOT | | | Rohan 0.92 m/s E/A RatioBiplane EF 24.2 % LVOT | | | Diam 1.86 cm TDI | | | (E/e') Tricuspi | | | d Pulmonic | | | RA Press 5 mmHg RVOT VTI | | | Aorta:Evaluati | | | on of chamber size and geometry is accomplished through the | | | incorporation of linear, volumetric, and indexed values Wall Scoring: | | | Report electronically signed by: [id number] Jen Ovalle MD, PhD | | | (03/17/2017, 1:53:40 PM) Final | | | | | |Report electronically signed by: [id number] Jen Ovalle MD, PhD (03/17/2017, | | |1:53:40 PM) | | | | | | | | | | | | Final | | + + -------+ + + | Procedure Note | + + | Interface, Cardiology Results - 03/17/2017 1:53 PM [facility] | | [facility] Echocardiography Laboratory [address] [place] [address] | | [place], [place] [address] Pt Name: RON Chaudhary | | MIKE Study Date/Time 03/17/2017 / 10:30:26 AMMRN: [id number] Most | | recent prior: 03/15/2017Acc #: [id number] No. previous echos: 1DOB: | | 1955 61 years Heart Rate: 139 bpmHeight: 69.0 in Blood | | Pressure: 133/83 mm/HgWeight: 258.0 lb Gender: MBSA: | | 2.30 m2 Order ID: [id number] Banquet Captain: Mauri Domingo | | RDCSReferring Provider: Mellisa HajiPatient Location: 12KModalities Performed: | | Limited 2D, Color Doppler and Spectral Doppler Limited.Study Quality: Fair.Exam | | Indication: Heart failure; ECMO; s/p STEMIHistory: 61 year old male with a past medical | | history significant for hypertension, hyperlipidemia, ongoing tobacco use and | | pre-diabetes who is transferred to [facility] with cardiogenic shock in the setting of an | | 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 Patient history has been obtained | | from the EHR Transthoracic Echocardiographic | | Report+ +Fi | | nal Impressions: | | | | 1. The LV ejection fraction is | | severely decreased. | | 2. Visually estimated left ventricular ejection | | fraction is 20 - 25%. 3. Left ventricular systolic thickening is segmentally | | abnormal (see comments below). | | 4. Mildly reduced RV systolic function. Normal RV size. | | 5. No significant valvular abnormalities seen. 6. | | Compared to the most recent exam dated, 03/15/2017, there are no significant | | changes. | | | | + + | | Description of Findings: Cardiac Rhythm: Tachycardia.Left Ventricle: Visually estimated | | left ventricular ejection fraction is 20 - 25%. The LV ejection fraction is severely | | decreased.The ejection fraction is 24.2 % as measured by Landry's biplane method. There | | is a false tendon in the LV apex.Left Ventricular Wall Motion: The LAD distribution and | | apical lateral segment are akinetic. The RCA distribution and mid anterolateral segment | | are hypokinetic. All remaining scored segments are normal. Left ventricular systolic | | thickening is segmentally abnormal.Atria: Left atrial size is normal. Normal right | | atrium.Right Ventricle: The right ventricular size is normal. Global RV systolic | | function is mildly reduced. TAPSE measures 1.4cm. The RV TDI s' velocity is | | 12cm/sec.Aortic Valve: The aortic valve is normal in structure and function. No | | indication of aortic valve regurgitation.Mitral Valve: The mitral valve is structurally | | normal. No evidence of mitral valve regurgitation.Tricuspid Valve: The tricuspid valve | | is structurally normal. Trace tricuspid regurgitation.Pulmonic Valve: The pulmonic valve | | is not well visualized.Aorta: Visualized portions of the ascending aorta and aortic | | root appear normal.Venous: Inferior vena cava is normal with normal inspiratory | | collapse.Pericardium: There is significant precordial fat pad present. A trivial | | pericardial effusion is seen.2D Measurements Doppler Measurements | | 2D NL Values Aortic Mitral LVOT Rohan 0.92 | | m/s E/A RatioBiplane EF 24.2 % LVOT Diam 1.86 cm TDI (E/e') | | Tricuspid Pulmonic RA Press 5 mmHg RVOT | | VTI Aorta:Evaluation of chamber size and geometry is | | accomplished through the incorporation of linear, volumetric, and indexed values Wall | | Scoring: Report electronically signed by: [id number] Jen Ovalle MD, PhD (03/17/2017, | | 1:53:40 PM) Final | |false tendon in the LV apex. | |Left Ventricular Wall Motion: The LAD distribution and apical lateral segment are | |akinetic. The RCA distribution and mid anterolateral segment are hypokinetic. All | |remaining scored segments are normal. Left ventricular systolic thickening is | |segmentally abnormal. | |Atria: Left atrial size is normal. Normal right atrium. | |Right Ventricle: The right ventricular size is normal. Global RV systolic function is | | mildly reduced. TAPSE measures 1.4cm. The RV TDI s' velocity is 12cm/sec. | |Aortic Valve: The aortic valve is normal in structure and function. No indication of | |aortic valve regurgitation. | |Mitral Valve: The mitral valve is structurally normal. No evidence of mitral valve | |regurgitation. | |Tricuspid Valve: The tricuspid valve is structurally normal. Trace tricuspid | |regurgitation. | |Pulmonic Valve: The pulmonic valve is not well visualized. | |Aorta: Visualized portions of the ascending aorta and aortic root appear normal. | |Venous: Inferior vena cava is normal with normal inspiratory collapse. | |Pericardium: There is significant precordial fat pad present. A trivial pericardial | |effusion is seen. | |2D Measurements Doppler Measurements | | | | 2D NL Values Aortic Mitral | | LVOT Rohan 0.92 m/s E/A Ratio | |Biplane EF 24.2 % LVOT Diam 1.86 cm TDI (E/e') | | Tricuspid Pulmonic | | RA Press 5 mmHg RVOT VTI | | | | Aorta: | |Evaluation of chamber size and geometry is accomplished through the incorporation of | |linear, volumetric, and indexed values | | | |Wall Scoring: | | | | | |Report electronically signed by: [id number] Jen Ovalle MD, PhD (03/17/2017, | |1:53:40 PM) | | | | | | | | Final | + + + + + + + | Performing | Address | City/State/Zipcode | Phone Number | | Organization | | | | + + + + + | [facility] | [address] | [place], [place] | | | CARDIOLOGY | [address] | [phone] | | + + + + + CAPILLARY BLOOD GLUCOSE (NO CHG), POC (03/17/2017 10:24 AM PDT) + +---------+ + + + | Component | Value | Ref Range | Performed | Pathologist | | | | | At | Signature | + +---------+ + + + | BLOOD | 129 (H) | 60 - 99 mg/dL | [facility] | | | GLUCOSE, | | | [facility] | | | POC | | | [facility] | | | | | | OF CARE | | | | | | TESTS | | + +---------+ + + + + + | Specimen | + + | | + + + + + + + | Performing | Address | City/State/Zipcode | Phone Number | | Organization | | | | + + + + + | [facility] | [address] | [place], [place] | | | [facility]ARE | [address] | [phone] | | | TESTS | | | | + + + + + CAPILLARY BLOOD GLUCOSE (NO CHG), POC (03/17/2017 9:20 AM PDT) + +---------+ + + + | Component | Value | Ref Range | Performed | Pathologist | | | | | At | Signature | + +---------+ + + + | BLOOD | 145 (H) | 60 - 99 mg/dL | [facility] | | | GLUCOSE, | | | [facility] | | | POC | | | [facility] | | | | | | OF CARE | | | | | | TESTS | | + +---------+ + + + + + | Specimen | + + | | + + + + + + + | Performing | Address | City/State/Zipcode | Phone Number | | Organization | | | | + + + + + | [facility] | [address] | [place], [place] | | | [facility] | [facility] | [address] | | | TESTS | | | | + + + + + CBC (HEMOGRAM) ONLY (03/17/2017 9:15 AM PDT) + + + + + + | Component | Value | Ref Range | Performed | Pathologist | | | | | At | Signature | + + + + + + | WHITE CELL | 16.92 (H) | 3.50 - 10.80 | [facility] | | | COUNT | | K/cu mm | LABORATORY | | | | | | SERVICES, | | | | | | CORE | | + + + + + + | RED CELL | 2.95 (L) | 4.50 - 6.00 | [facility] | | | COUNT | | M/cu mm | LABORATORY | | | | | | SERVICES, | | | | | | CORE | | + + + + + + | HEMOGLOBIN | 9.4 (L) | 13.5 - 17.5 | [facility] | | | | | g/dL | LABORATORY | | | | | | SERVICES, | | | | | | CORE | | + + + + + + | HEMATOCRIT | 27.4 (L) | 41.0 - 53.0 % | [facility] | | | | | | LABORATORY | | | | | | SERVICES, | | | | | | CORE | | + + + + + + | MCV | 92.9 | 80.0 - 96.0 fL | [facility] | | | | | | LABORATORY | | | | | | SERVICES, | | | | | | CORE | | + + + + + + | MCHC | 34.3 | 33.0 - 35.5 | [facility] | | | | | g/dL | LABORATORY | | | | | | SERVICES, | | | | | | CORE | | + + + + + + | RDW SD | 48.9 (H) | 35.1 - 46.3 fL | [facility] | | | | | | LABORATORY | | | | | | SERVICES, | | | | | | CORE | | + + + + + + | PLATELET | 129 (L) | 150 - 400 K/cu | [facility] | | | COUNT | | mm | LABORATORY | | | | | | SERVICES, | | | | | | CORE | | + + + + + + | MPV | 10.9 | 9.7 - 12.3 fL | [facility] | | | | | | LABORATORY | | | | | | SERVICES, | | | | | | CORE | | + + + + + + | NRBC% | 0.0 | 0.0 - 0.3 % | [facility] | | | | | | LABORATORY | | | | | | SERVICES, | | | | | | CORE | | + + + + + + | NRBC# | 0.00 | 0.00 - 0.02 | [facility] | | | | | K/cu mm | LABORATORY | | | | | | SERVICES, | | | | | | CORE | | + + + + + + + + | Specimen | + + | Blood | + + + + + | Narrative | Performed At | + + + | Must be ordered if Coagulopathy Panel is ordered | [facility] | | | LABORATORY | | | SERVICES, CORE | + + + + + + + + | Performing | Address | City/State/Zipcode | Phone Number | | Organization | | | | + + + + + | [facility] | [address] [facility] | [place] [address] | | | SERVICES, CORE | [address] | | | + + + + + HEPARIN, EITHER STANDARD / LMW, BLOOD (03/17/2017 9:15 AM PDT) + +-------+ + + + | Component | Value | Ref Range | Performed | Pathologist | | | | | At | Signature | + +-------+ + + + | HEPARIN, | 0.42 | U/mL | [facility] | | | STD LMW | | | LABORATORY | | | | | | SERVICES, | | | | | | CORE | | + +-------+ + + + + + | Specimen | + + | Blood | + + + + + | Narrative | Performed At | + + + | LVAD/Advanced Heart Failure Heparin Protocol Heparin level 6 | [facility] | | hrs after every heparin rate change; If heparin level within target | LABORATORY | | range for 2 consecutive results, recheck every AM. Heparin, Either | SERVICES, CORE | | STD/LMW - Therapeutic Ranges: Heparin, Unfractionated: 0.35 - | | | 0.70 U/mL Enoxaparin, LMWH: 0.70 - 1.20 U/mL | | | Dalteparin, LMWH: 0.70 - 1.20 U/mL Tinzaparin, | | | LMWH: Therapeutic range not established. | | | Preliminary | | | studies suggest range | | | similar to | | | dalteparin. Clinical | | | correlation | | | required. Heparin levels may be unreliable for: | | | Total bilirubin | | | >28.8 mg/dL | | | Triglycerides | | | >690 mg/dL or | | | Moderate to Gross Hemolysis | | + + + + + + + + | Performing | Address | City/State/Zipcode | Phone Number | | Organization | | | | + + + + + | [facility] | [address] | [place] [address] | | | SERVICES, CORE | [address] | | | + + + + + BLOOD GASES, ARTERIAL - LAB (03/17/2017 9:15 AM PDT) + + + + + + | Component | Value | Ref Range | Performed | Pathologist | | | | | At | Signature | + + + + + + | PAT TEMP | 37.2 | Degree C | [facility] | | | ARTERIAL | | | LABORATORY | | | | | | SERVICES, | | | | | | CORE | | + + + + + + | FIO2 | 1.00 | | [facility] | | | ARTERIAL | | | LABORATORY | | | | | | SERVICES, | | | | | | CORE | | + + + + + + | PH ARTERIAL | 7.51 (H) | 7.37 - 7.44 | [facility] | | | | | | LABORATORY | | | | | | SERVICES, | | | | | | CORE | | + + + + + + | PCO2 | 33 | 32 - 43 mmHg | [facility] | | | ARTERIAL | | | LABORATORY | | | | | | SERVICES, | | | | | | CORE | | + + + + + + | PO2 | 74 | 72 - 104 mmHg | [facility] | | | ARTERIAL | | | LABORATORY | | | | | | SERVICES, | | | | | | CORE | | + + + + + + | HCO3 | 26 | 21 - 28 mmol/L | [facility] | | | ARTERIAL | | | LABORATORY | | | | | | SERVICES, | | | | | | CORE | | + + + + + + | TOTAL CO2 | 27 | 22 - 28 mmol/L | [facility] | | | ARTERIAL | | | LABORATORY | | | | | | SERVICES, | | | | | | CORE | | + + + + + + | BASE EXCESS | 2.8 | mmol/L | [facility] | | | ARTERIAL | | | LABORATORY | | | | | | SERVICES, | | | | | | CORE | | + + + + + + | O2 SAT, | 96.5 | 92.0 - 98.0 % | [facility] | | | ARTERIAL | | | LABORATORY | | | | | | SERVICES, | | | | | | CORE | | + + + + + + | PAO2/FIO2 | 74 (L) | >300 mmHg | [facility] | | | RATIO | | | LABORATORY | | | | | | SERVICES, | | | | | | CORE | | + + + + + + + + | Specimen | + + | Blood | + + + + + + + | Performing | Address | City/State/Zipcode | Phone Number | | Organization | | | | + + + + + | [facility] | [address] | [place] [address] | | | SERVICES, CORE | [address] | | | + + + + + CAPILLARY BLOOD GLUCOSE (NO CHG), POC (03/17/2017 8:28 AM PDT) + +---------+ + + + | Component | Value | Ref Range | Performed | Pathologist | | | | | At | Signature | + +---------+ + + + | BLOOD | 160 (H) | 60 - 99 mg/dL | [facility] | | | GLUCOSE, | | | [facility] | | | POC | | | [facility] | | | | | | OF CARE | | | | | | TESTS | | + +---------+ + + + + + | Specimen | + + | | + + + + + + + | Performing | Address | City/State/Zipcode | Phone Number | | Organization | | | | + + + + + | [facility] | [address] | [place], [place] | | | [facility] | [address] | [phone] | | | TESTS | | | | + + + + + CAPILLARY BLOOD GLUCOSE (NO CHG), POC (03/17/2017 7:23 AM PDT) + +---------+ + + + | Component | Value | Ref Range | Performed | Pathologist | | | | | At | Signature | + +---------+ + + + | BLOOD | 165 (H) | 60 - 99 mg/dL | [facility] | | | GLUCOSE, | | | [facility] | | | POC | | | [facility] | | | | | | OF CARE | | | | | | TESTS | | + +---------+ + + + + + | Specimen | + + | | + + + + + + + | Performing | Address | City/State/Zipcode | Phone Number | | Organization | | | | + + + + + | [facility] | [address] | [place], [place] | | | [facility] | [address] | [address] | | | TESTS | | | | + + + + + CAPILLARY BLOOD GLUCOSE (NO CHG), POC (03/17/2017 6:14 AM PDT) + +---------+ + + + | Component | Value | Ref Range | Performed | Pathologist | | | | | At | Signature | + +---------+ + + + | BLOOD | 126 (H) | 60 - 99 mg/dL | [facility] | | | GLUCOSE, | | | [facility] | | | POC | | | [facility] | | | | | | OF CARE | | | | | | TESTS | | + +---------+ + + + + + | Specimen | + + | | + + + + + + + | Performing | Address | City/State/Zipcode | Phone Number | | Organization | | | | + + + + + | [facility] | [address] | [place], [place] | | | [facility] | [address] | [address] | | | TESTS | | | | + + + + + BLOOD GASES, ARTERIAL - LAB (03/17/2017 6:12 AM PDT) + + + + + + | Component | Value | Ref Range | Performed | Pathologist | | | | | At | Signature | + + + + + + | PAT TEMP | 37.6 | Degree C | [facility] | | | ARTERIAL | | | LABORATORY | | | | | | SERVICES, | | | | | | CORE | | + + + + + + | FIO2 | 1.00 | | [facility] | | | ARTERIAL | | | LABORATORY | | | | | | SERVICES, | | | | | | CORE | | + + + + + + | PH ARTERIAL | 7.51 (H) | 7.37 - 7.44 | [facility] | | | | | | LABORATORY | | | | | | SERVICES, | | | | | | CORE | | + + + + + + | PCO2 | 33 | 32 - 43 mmHg | [facility] | | | ARTERIAL | | | LABORATORY | | | | | | SERVICES, | | | | | | CORE | | + + + + + + | PO2 | 63 (L) | 72 - 104 mmHg | [facility] | | | ARTERIAL | | | LABORATORY | | | | | | SERVICES, | | | | | | CORE | | + + + + + + | HCO3 | 26 | 21 - 28 mmol/L | [facility] | | | ARTERIAL | | | LABORATORY | | | | | | SERVICES, | | | | | | CORE | | + + + + + + | TOTAL CO2 | 27 | 22 - 28 mmol/L | [facility] | | | ARTERIAL | | | LABORATORY | | | | | | SERVICES, | | | | | | CORE | | + + + + + + | BASE EXCESS | 3.3 | mmol/L | [facility] | | | ARTERIAL | | | LABORATORY | | | | | | SERVICES, | | | | | | CORE | | + + + + + + | O2 SAT, | 93.3 | 92.0 - 98.0 % | [facility] | | | ARTERIAL | | | LABORATORY | | | | | | SERVICES, | | | | | | CORE | | + + + + + + | PAO2/FIO2 | 63 (L) | >300 mmHg | [facility] | | | RATIO | | | LABORATORY | | | | | | SERVICES, | | | | | | CORE | | + + + + + + + + | Specimen | + + | Blood | + + + + + + + | Performing | Address | City/State/Zipcode | Phone Number | | Organization | | | | + + + + + | [facility] | [address] | [place] [address] | | | SERVICES, CORE | [address] | | | + + + + + BLOOD GASES, ARTERIAL - LAB (03/17/2017 6:11 AM PDT) + + + + + + | Component | Value | Ref Range | Performed | Pathologist | | | | | At | Signature | + + + + + + | PAT TEMP | 37.6 | Degree C | [facility] | | | ARTERIAL | | | LABORATORY | | | | | | SERVICES, | | | | | | CORE | | + + + + + + | FIO2 | 1.00 | | [facility] | | | ARTERIAL | | | LABORATORY | | | | | | SERVICES, | | | | | | CORE | | + + + + + + | PH ARTERIAL | 7.51 (H) | 7.37 - 7.44 | [facility] | | | | | | LABORATORY | | | | | | SERVICES, | | | | | | CORE | | + + + + + + | PCO2 | 32 | 32 - 43 mmHg | [facility] | | | ARTERIAL | | | LABORATORY | | | | | | SERVICES, | | | | | | CORE | | + + + + + + | PO2 | 489 (H) | 72 - 104 mmHg | [facility] | | | ARTERIAL | | | LABORATORY | | | | | | SERVICES, | | | | | | CORE | | + + + + + + | HCO3 | 25 | 21 - 28 mmol/L | [facility] | | | ARTERIAL | | | LABORATORY | | | | | | SERVICES, | | | | | | CORE | | + + + + + + | TOTAL CO2 | 26 | 22 - 28 mmol/L | [facility] | | | ARTERIAL | | | LABORATORY | | | | | | SERVICES, | | | | | | CORE | | + + + + + + | BASE EXCESS | 2.9 | mmol/L | [facility] | | | ARTERIAL | | | LABORATORY | | | | | | SERVICES, | | | | | | CORE | | + + + + + + | O2 SAT, | 99.8 (H) | 92.0 - 98.0 % | [facility] | | | ARTERIAL | | | LABORATORY | | | | | | SERVICES, | | | | | | CORE | | + + + + + + | PAO2/FIO2 | 489 | >300 mmHg | [facility] | | | RATIO | | | LABORATORY | | | | | | SERVICES, | | | | | | CORE | | + + + + + + + + | Specimen | + + | Blood | + + + + + + + | Performing | Address | City/State/Zipcode | Phone Number | | Organization | | | | + + + + + | [facility] | [id number] | [place] [address] | | | SERVICES, CORE | [address] | | | + + + + + X-RAY PORTABLE CHEST 1 VIEW (03/17/2017 5:37 AM PDT) + + | Specimen | + + | | + + + + + | Narrative | Performed At | + + + | EXAM: AL CHEST 1 VIEW 03/17/17 04:53:29 HISTORY: On ECMO | [facility] | | COMPARISON: Yesterday FINDINGS: Intra-aortic balloon pump has | RADIOLOGY VOICE | | been removed. Endotracheal, enteric tube and right IJ PA catheter are | RECOGNITION | | unchanged. ECMO cannula centered within the right atrium with the tip | | | above the superior cavoatrial junction. The cardiomediastinal | | | silhouette is stable. Coarse right upper lobe groundglass and nodular | | | opacities are unchanged. There is no pleural effusion, pneumothorax or | | | pulmonary edema. IMPRESSION: Removal of intraaortic balloon | | | pump. Unchanged ECMO cannula. Unchanged coarse right upper | | | lobe groundglass/nodular opacities.. I have personally reviewed | | | the images and, if necessary, edited the report. I agree with the | | | report as now presented. | | + + + + + | Procedure Note | + + | Service Account, [employer] In Interface - 03/17/2017 9:44 AM PDT EXAM: AL CHEST 1 | | VIEW 03/17/17 04:53:29 HISTORY: On ECMOCOMPARISON: YesterdayFINDINGS: Intra-aortic | | balloon pump has been removed. Endotracheal, enteric tube and right IJ PA catheter are | | unchanged. ECMO cannula centered within the right atrium with the tip above the superior | | cavoatrial junction.The cardiomediastinal silhouette is stable. Coarse right upper lobe | | groundglass and nodular opacities are unchanged. There is no pleural effusion, | | pneumothorax or pulmonary edema.IMPRESSION: Removal of intraaortic balloon | | pump.Unchanged ECMO cannula.Unchanged coarse right upper lobe groundglass/nodular | | opacities..I have personally reviewed the images and, if necessary, edited the report. | | I agree with the report as now presented. | |The cardiomediastinal silhouette is stable. Coarse right upper lobe groundglass and nodular opacities are unchanged. There is no pleural effusion, pneumothorax or pulmonary edema. | | | |IMPRESSION: | | | |Removal of intraaortic balloon pump. | | | |Unchanged ECMO cannula. | | | |Unchanged coarse right upper lobe groundglass/nodular opacities.. | | | | | |I have personally reviewed the images and, if necessary, edited the report. I agree with t he report as now presented. | + + + +---------+ + + | Performing | Address | City/State/Zipcode | Phone Number | | Organization | | | | + +---------+ + + | [facility] | | | | | VOICE RECOGNITION | | | | + +---------+ + + CAPILLARY BLOOD GLUCOSE (NO CHG), POC (03/17/2017 4:58 AM PDT) + +-------+ + + + | Component | Value | Ref Range | Performed | Pathologist | | | | | At | Signature | + +-------+ + + + | BLOOD | 96 | 60 - 99 mg/dL | [facility] | | | GLUCOSE, | | | [facility] | | | POC | | | [place] | | | | | | OF CARE | | | | | | TESTS | | + +-------+ + + + + + | Specimen | + + | | + + + + + + + | Performing | Address | City/State/Zipcode | Phone Number | | Organization | | | | + + + + + | [facility] | [address] | [place], [place] | | | [facility] | [facility] | [address] | | | TESTS | | | | + + + + + CBC AND AUTO DIFF (03/17/2017 3:10 AM PDT) + + + + + + | Component | Value | Ref Range | Performed | Pathologist | | | | | At | Signature | + + + + + + | WHITE CELL | 17.35 (H) | 3.50 - 10.80 | [facility] | | | COUNT | | K/cu mm | LABORATORY | | | | | | SERVICES, | | | | | | CORE | | + + + + + + | RED CELL | 2.94 (L) | 4.50 - 6.00 | [facility] | | | COUNT | | M/cu mm | LABORATORY | | | | | | SERVICES, | | | | | | CORE | | + + + + + + | HEMOGLOBIN | 9.6 (L) | 13.5 - 17.5 | [facility] | | | | | g/dL | LABORATORY | | | | | | SERVICES, | | | | | | CORE | | + + + + + + | HEMATOCRIT | 27.2 (L) | 41.0 - 53.0 % | [facility] | | | | | | LABORATORY | | | | | | SERVICES, | | | | | | CORE | | + + + + + + | MCV | 92.5 | 80.0 - 96.0 fL | [facility] | | | | | | LABORATORY | | | | | | SERVICES, | | | | | | CORE | | + + + + + + | MCHC | 35.3 | 33.0 - 35.5 | [facility] | | | | | g/dL | LABORATORY | | | | | | SERVICES, | | | | | | CORE | | + + + + + + | RDW SD | 48.8 (H) | 35.1 - 46.3 fL | [facility] | | | | | | LABORATORY | | | | | | SERVICES, | | | | | | CORE | | + + + + + + | PLATELET | 140 (L) | 150 - 400 K/cu | [facility] | | | COUNT | | mm | LABORATORY | | | | | | SERVICES, | | | | | | CORE | | + + + + + + | MPV | 10.9 | 9.7 - 12.3 fL | [facility] | | | | | | LABORATORY | | | | | | SERVICES, | | | | | | CORE | | + + + + + + | NRBC% | 0.0 | 0.0 - 0.3 % | [facility] | | | | | | LABORATORY | | | | | | SERVICES, | | | | | | CORE | | + + + + + + | NRBC# | 0.00 | 0.00 - 0.02 | [facility] | | | | | K/cu mm | LABORATORY | | | | | | SERVICES, | | | | | | CORE | | + + + + + + | NEUTROPHIL | 80.8 (H) | 50.0 - 70.0 % | [facility] | | | % | | | LABORATORY | | | | | | SERVICES, | | | | | | CORE | | + + + + + + | LYMPHOCYTE | 8.4 (L) | 18.0 - 42.0 % | [facility] | | | % | | | LABORATORY | | | | | | SERVICES, | | | | | | CORE | | + + + + + + | MONOCYTE % | 9.4 (H) | 3.5 - 9.0 % | [facility] | | | | | | LABORATORY | | | | | | SERVICES, | | | | | | CORE | | + + + + + + | EOS % | 0.1 (L) | 1.0 - 3.0 % | [facility] | | | | | | LABORATORY | | | | | | SERVICES, | | | | | | CORE | | + + + + + + | BASO % | 0.1 | 0.0 - 2.0 % | [facility] | | | | | | LABORATORY | | | | | | SERVICES, | | | | | | CORE | | + + + + + + | IG% | 1.2 (H)Comment: Immature | 0.0 - 0.6 % | [facility] | | | | Granulocytes (IG) | | LABORATORY | | | | include metamyelocytes, | | SERVICES, | | | | myelocytes and | | CORE | | | | promyelocytes. Bands | | | | | | are not included in the | | | | | | IG count. Bands are | | | | | | included in the | | | | | | neutrophil count. | | | | + + + + + + | NEUTROPHIL | 14.03 (H) | 1.80 - 7.70 | [facility] | | | # | | K/cu mm | LABORATORY | | | | | | SERVICES, | | | | | | CORE | | + + + + + + | LYMPHOCYTE | 1.46 | 1.00 - 4.80 | [facility] | | | # | | K/cu mm | LABORATORY | | | | | | SERVICES, | | | | | | CORE | | + + + + + + | MONOCYTE # | 1.63 (H) | 0.10 - 0.90 | [facility] | | | | | K/cu mm | LABORATORY | | | | | | SERVICES, | | | | | | CORE | | + + + + + + | EOS # | 0.01 | 0.00 - 0.50 | [facility] | | | | | K/cu mm | LABORATORY | | | | | | SERVICES, | | | | | | CORE | | + + + + + + | BASO # | 0.02 | 0.00 - 0.10 | [facility] | | | | | K/cu mm | LABORATORY | | | | | | SERVICES, | | | | | | CORE | | + + + + + + | IG# | 0.20 (H) | 0.00 - 0.03 | [facility] | | | | | K/cu mm | LABORATORY | | | | | | SERVICES, | | | | | | CORE | | + + + + + + + + | Specimen | + + | Blood | + + + + + | Narrative | Performed At | + + + | Immature Granulocytes (IG) include metamyelocytes, myelocytes | [facility] | | and promyelocytes. Bands are not included in the IG count. Bands | LABORATORY | | are included in the neutrophil count. | SERVICES, CORE | + + + + + + + + | Performing | Address | City/State/Zipcode | Phone Number | | Organization | | | | + + + + + | [facility] | [address] | [place] [address] | | | SERVICES, CORE | [address] | | | + + + + + RENAL FUNCTION SET (NA,K,CL,CO2,BUN,CREAT,GLUC,CA,PHOS,ALB ) (03/17/2017 3:10 AM PDT) + + + + + + | Component | Value | Ref Range | Performed | Pathologist | | | | | At | Signature | + + + + + + | GLUCOSE, | 108 (H) | 60 - 99 mg/dL | [facility] | | | PLASMA | | | LABORATORY | | | (LAB) | | | SERVICES, | | | | | | CORE | | + + + + + + | BUN, PLASMA | 22 (H) | 6 - 20 mg/dL | [facility] | | | (LAB) | | | LABORATORY | | | | | | SERVICES, | | | | | | CORE | | + + + + + + | CREATININE | 1.35 (H) | 0.70 - 1.30 | [facility] | | | PLASMA | | mg/dL | LABORATORY | | | (LAB) | | | SERVICES, | | | | | | CORE | | + + + + + + | EGFR | >60 | >60 mL/min | [facility] | | | - | | | LABORATORY | | | SLOVENIAN | | | SERVICES, | | | | | | CORE | | + + + + + + | EGFR NON | 54 (L) | >60 mL/min | [facility] | | | -SOREN | | | LABORATORY | | | RICAN | | | SERVICES, | | | | | | CORE | | + + + + + + | SODIUM, | 144 | 136 - 145 | [facility] | | | PLASMA | | mmol/L | LABORATORY | | | (LAB) | | | SERVICES, | | | | | | CORE | | + + + + + + | POTASSIUM, | 4.5 | 3.4 - 5.0 | [facility] | | | PLASMA | | mmol/L | LABORATORY | | | (LAB) | | | SERVICES, | | | | | | CORE | | + + + + + + | CHLORIDE, | 110 (H) | 97 - 108 mmol/L | [facility] | | | PLASMA | | | LABORATORY | | | (LAB) | | | SERVICES, | | | | | | CORE | | + + + + + + | TOTAL CO2, | 25 | 21 - 32 mmol/L | [facility] | | | PLASMA | | | LABORATORY | | | (LAB) | | | SERVICES, | | | | | | CORE | | + + + + + + | CALCIUM, | 7.4 (L) | 8.6 - 10.2 | [facility] | | | PLASMA | | mg/dL | LABORATORY | | | (LAB) | | | SERVICES, | | | | | | CORE | | + + + + + + | CALCIUM(ALB | 8.9 | 8.6 - 10.2 | [facility] | | | CORRECTED) | | mg/dL | LABORATORY | | | | | | SERVICES, | | | | | | CORE | | + + + + + + | ALBUMIN, | 2.1 (L) | 3.5 - 4.7 g/dL | [facility] | | | PLASMA | | | LABORATORY | | | (LAB) | | | SERVICES, | | | | | | CORE | | + + + + + + | PHOSPHORUS, | 2.1 (L) | 2.4 - 4.7 mg/dL | [facility] | | | PLASMA | | | LABORATORY | | | (LAB) | | | SERVICES, | | | | | | CORE | | + + + + + + | POTASSIUM | Sl Hemo | | [facility] | | | CMNT | | | LABORATORY | | | | | | SERVICES, | | | | | | CORE | | + + + + + + | ANION GAP | 9 | mmol/L | [facility] | | | | | | LABORATORY | | | | | | SERVICES, | | | | | | CORE | | + + + + + + | ANION | 13 (H) | 4 - 11 mmol/L | [facility] | | | GAP(ALB | | | LABORATORY | | | CORRECTED) | | | SERVICES, | | | | | | CORE | | + + + + + + + + | Specimen | + + | Blood | + + + + + | Narrative | Performed At | + + + | Sample hemolyzed. Results for K, Total Bili, Direct Bili, AST, | [facility] | | LDH, or HDL may be inaccurate. Refer to comment under test result. | LABORATORY | | GFR is estimated using the MDRD equation recommended by the National | SERVICES, CORE | | Kidney Disease Education Program. Estimated GFR Interpretive | | | Information: <60 mL/min/1.73 sq m Chronic | | | Kidney Disease <15 mL/min/1.73 sq m | | | Kidney Failure Estimated GFR greater that 60 mL/min/1.73 sq m is of | | | limited clinical value. The MDRD equation is not valid in the | | | following situations: - Patients under 18 years of age - Severe | | | malnutrition or obesity - Vegetarian diet - Rapidly changing kidney | | | function | | + + + + + + + + | Performing | Address | City/State/Zipcode | Phone Number | | Organization | | | | + + + + + | [facility] | [address] | [place] [address] | | | [facility] | [address] | | | + + + + + MAGNESIUM, PLASMA (03/17/2017 3:10 AM PDT) + +-------+ + + + | Component | Value | Ref Range | Performed | Pathologist | | | | | At | Signature | + +-------+ + + + | MAGNESIUM,P | 2.0 | 1.8 - 2.5 mg/dL | [facility] | | | LASMA | | | LABORATORY | | | | | | SERVICES, | | | | | | CORE | | + +-------+ + + + + + | Specimen | + + | Blood | + + + + + + + | Performing | Address | City/State/Zipcode | Phone Number | | Organization | | | | + + + + + | [facility] | [address] | [place] [address] | | | SERVICES, CORE | [address] | | | + + + + + CAPILLARY BLOOD GLUCOSE (NO CHG), POC (03/17/2017 2:49 AM PDT) + +---------+ + + + | Component | Value | Ref Range | Performed | Pathologist | | | | | At | Signature | + +---------+ + + + | BLOOD | 118 (H) | 60 - 99 mg/dL | [facility] - | | | GLUCOSE, | | | [facility] | | | POC | | | [facility] | | | | | | OF CARE | | | | | | TESTS | | + +---------+ + + + + + | Specimen | + + | | + + + + + + + | Performing | Address | City/State/Zipcode | Phone Number | | Organization | | | | + + + + + | [facility] | [address] | [place], [place] | | | [facility] | [address] | [address] | | | TESTS | | | | + + + + + LACTATE (03/17/2017 2:46 AM PDT) + +-------+ + + + | Component | Value | Ref Range | Performed | Pathologist | | | | | At | Signature | + +-------+ + + + | LACTATE | 2.4 | mmol/L | [facility] | | | | | | LABORATORY | | | | | | SERVICES, | | | | | | CORE | | + +-------+ + + + + + | Specimen | + + | Blood | + + + + + | Narrative | Performed At | + + + | Reference Range: Venous blood: 0.5 - 2.2 mmol/L Critical | [facility] | | >= 4.0 mmol/L Arterial blood: 0.5 - 1.6 mmol/L Critical >= 4.0 | LABORATORY | | mmol/L | SERVICES, CORE | + + + + + + + + | Performing | Address | City/State/Zipcode | Phone Number | | Organization | | | | + + + + + | [facility] | [address] | [place] [address] | | | SERVICES, CORE | [address] | | | + + + + + BLOOD GASES, ARTERIAL - LAB (03/17/2017 2:46 AM PDT) + + + + + + | Component | Value | Ref Range | Performed | Pathologist | | | | | At | Signature | + + + + + + | PAT TEMP | 37.3 | Degree C | [facility] | | | ARTERIAL | | | LABORATORY | | | | | | SERVICES, | | | | | | CORE | | + + + + + + | FIO2 | 1.00 | | [facility] | | | ARTERIAL | | | LABORATORY | | | | | | SERVICES, | | | | | | CORE | | + + + + + + | PH ARTERIAL | 7.49 (H) | 7.37 - 7.44 | [facility] | | | | | | LABORATORY | | | | | | SERVICES, | | | | | | CORE | | + + + + + + | PCO2 | 34 | 32 - 43 mmHg | [facility] | | | ARTERIAL | | | LABORATORY | | | | | | SERVICES, | | | | | | CORE | | + + + + + + | PO2 | 56 (L) | 72 - 104 mmHg | [facility] | | | ARTERIAL | | | LABORATORY | | | | | | SERVICES, | | | | | | CORE | | + + + + + + | HCO3 | 26 | 21 - 28 mmol/L | [facility] | | | ARTERIAL | | | LABORATORY | | | | | | SERVICES, | | | | | | CORE | | + + + + + + | TOTAL CO2 | 27 | 22 - 28 mmol/L | [facility] | | | ARTERIAL | | | LABORATORY | | | | | | SERVICES, | | | | | | CORE | | + + + + + + | BASE EXCESS | 2.6 | mmol/L | [facility] | | | ARTERIAL | | | LABORATORY | | | | | | SERVICES, | | | | | | CORE | | + + + + + + | O2 SAT, | 90.9 (L) | 92.0 - 98.0 % | [facility] | | | ARTERIAL | | | LABORATORY | | | | | | SERVICES, | | | | | | CORE | | + + + + + + | PAO2/FIO2 | 56 (L) | >300 mmHg | [facility] | | | RATIO | | | LABORATORY | | | | | | SERVICES, | | | | | | CORE | | + + + + + + + + | Specimen | + + | Blood | + + + + + + + | Performing | Address | City/State/Zipcode | Phone Number | | Organization | | | | + + + + + | [facility] | [address] | [place] [address] | | | SERVICES, CORE | [address] | | | + + + + + PHOSPHORUS, PLASMA (03/17/2017 2:45 AM PDT) + +---------+ + + + | Component | Value | Ref Range | Performed | Pathologist | | | | | At | Signature | + +---------+ + + + | PHOSPHORUS, | 2.0 (L) | 2.4 - 4.7 mg/dL | [facility] | | | PLASMA | | | LABORATORY | | | (LAB) | | | SERVICES, | | | | | | CORE | | + +---------+ + + + + + | Specimen | + + | Blood | + + + + + | Narrative | Performed At | + + + | 2 hrs after intravenous magnesium repletion if magnesium < 1.6. 2 | [facility] | | hrs after intravenous phosphorus repletion if phosphorus < 1. | LABORATORY | | | ИРИНА ANTOINE | + + + + + + + + | Performing | Address | City/State/Zipcode | Phone Number | | Organization | | | | + + + + + | [facility] | [address] | [place] [address] | | | [facility] | [address] | | | + + + + + MAGNESIUM, PLASMA (03/17/2017 2:45 AM PDT) + +-------+ + + + | Component | Value | Ref Range | Performed | Pathologist | | | | | At | Signature | + +-------+ + + + | MAGNESIUM,P | 2.1 | 1.8 - 2.5 mg/dL | [facility] | | | LASMA | | | LABORATORY | | | | | | SERVICES, | | | | | | CORE | | + +-------+ + + + + + | Specimen | + + | Blood | + + + + + | Narrative | Performed At | + + + | 2 hrs after intravenous magnesium repletion if magnesium < 1.6. 2 | [facility] | | hrs after intravenous phosphorus repletion if phosphorus < 1. | LABORATORY | | | SERVICES, CORE | + + + + + + + + | Performing | Address | City/State/Zipcode | Phone Number | | Organization | | | | + + + + + | [facility] | [address] | [place] [address] | | | SERVICES, CORE | [address] | | | + + + + + BLOOD GASES, VENOUS - LAB (03/17/2017 2:45 AM PDT) + +-------+ + + + | Component | Value | Ref Range | Performed | Pathologist | | | | | At | Signature | + +-------+ + + + | PH VENOUS | 7.42 | 7.35 - 7.45 | [facility] | | | | | | LABORATORY | | | | | | SERVICES, | | | | | | CORE | | + +-------+ + + + | PCO2 VENOUS | 43 | 35 - 50 mmHg | [facility] | | | | | | LABORATORY | | | | | | SERVICES, | | | | | | CORE | | + +-------+ + + + | PO2 VENOUS | 37 | 30 - 55 mmHg | [facility] | | | | | | LABORATORY | | | | | | SERVICES, | | | | | | CORE | | + +-------+ + + + | HCO3 VENOUS | 27 | 22 - 28 mmol/L | [facility] | | | | | | LABORATORY | | | | | | SERVICES, | | | | | | CORE | | + +-------+ + + + | BASE EXCESS | 2.6 | mmol/L | [facility] | | | VENOUS | | | LABORATORY | | | | | | SERVICES, | | | | | | CORE | | + +-------+ + + + | O2 SAT, | 69.8 | No range has | [facility] | | | VENOUS | | been | LABORATORY | | | | | established % | SERVICES, | | | | | | CORE | | + +-------+ + + + | TOTAL CO2 | 28 | 23 - 29 mmol/L | [facility] | | | VENOUS | | | LABORATORY | | | | | | SERVICES, | | | | | | CORE | | + +-------+ + + + + + | Specimen | + + | Blood | + + + + + + + | Performing | Address | City/State/Zipcode | Phone Number | | Organization | | | | + + + + + | [facility] | [address] | [place] [address] | | | SERVICES, CORE | [address] | | | + + + + + HEPARIN, EITHER STANDARD / LMW, BLOOD (03/17/2017 2:45 AM PDT) + +-------+ + + + | Component | Value | Ref Range | Performed | Pathologist | | | | | At | Signature | + +-------+ + + + | HEPARIN, | 0.50 | U/mL | [facility] | | | STD LMW | | | LABORATORY | | | | | | SERVICES, | | | | | | CORE | | + +-------+ + + + + + | Specimen | + + | Blood | + + + + + | Narrative | Performed At | + + + | Must order with concurrent CBC Venous Disease Heparin Protocol | [facility] | | (for [facility]O) Heparin level 6 hrs after every heparin rate change. | LABORATORY | | Heparin, Either STD/LMW - Therapeutic Ranges: Heparin, | SERVICES, CORE | | Unfractionated: 0.35 - 0.70 U/mL Enoxaparin, LMWH: | | | 0.70 - 1.20 U/mL Dalteparin, LMWH: 0.70 - 1.20 U/mL | | | Tinzaparin, LMWH: Therapeutic range not established. | | | Preliminary | | | studies suggest range | | | similar to | | | dalteparin. Clinical | | | correlation | | | required. Heparin levels may be unreliable for: | | | Total bilirubin | | | >28.8 mg/dL | | | Triglycerides | | | >690 mg/dL or | | | Moderate to Gross Hemolysis | | + + + + + + + + | Performing | Address | City/State/Zipcode | Phone Number | | Organization | | | | + + + + + | [facility] | [address] | [place] [address] | | | SERVICES, ИРИНА | [address] | | | + + + + + HEMOGLOBIN, PLASMA FREE (03/17/2017 2:45 AM PDT) + +---------+ + + + | Component | Value | Ref Range | Performed | Pathologist | | | | | At | Signature | + +---------+ + + + | HEMOGLOBIN, | 130 (H) | <=10 mg/dL | [facility] | | | PLASMA | | | LABORATORY | | | FREE | | | SERVICES, | | | | | | CORE | | + +---------+ + + + + + | Specimen | + + | Blood | + + + + + + + | Performing | Address | City/State/Zipcode | Phone Number | | Organization | | | | + + + + + | [facility] | [address] | [place] [address] | | | SERVICES, CORE | [address] | | | + + + + + LDH TOTAL, PLASMA (03/17/2017 2:45 AM PDT) + + + + + + | Component | Value | Ref Range | Performed | Pathologist | | | | | At | Signature | + + + + + + | LD TOTAL, | 1,182 (H) | <=250 U/L | [facility] | | | PLASMA | | | LABORATORY | | | | | | SERVICES, | | | | | | CORE | | + + + + + + | LD CMNT | No Hemo | | [facility] | | | | | | LABORATORY | | | | | | SERVICES, | | | | | | CORE | | + + + + + + + + | Specimen | + + | Blood | + + + + + | Narrative | Performed At | + + + | 2 hrs after intravenous magnesium repletion if magnesium < 1.6. 2 | [facility] | | hrs after intravenous phosphorus repletion if phosphorus < 1. | LABORATORY | | | SERVICES, ИРИНА | + + + + + + + + | Performing | Address | City/State/Zipcode | Phone Number | | Organization | | | | + + + + + | [facility] | [address] | [place] [address] | | | SERVICES, ИРИНА | [address] | | | + + + + + COAGULOPATHY PANEL (INR,APTT,FIBRINOGEN) (03/17/2017 2:45 AM PDT) + + + + + + | Component | Value | Ref Range | Performed | Pathologist | | | | | At | Signature | + + + + + + | INR | 1.29 (H) | 0.90 - 1.20 INR | [facility] | | | | | | LABORATORY | | | | | | SERVICES, | | | | | | CORE | | + + + + + + | APTT | 90.3 (H) | 26.0 - 36.0 | [facility] | | | | | seconds | LABORATORY | | | | | | SERVICES, | | | | | | CORE | | + + + + + + | FIBRINOGEN | 597 (H) | 200 - 450 mg/dL | [facility] | | | LEVEL | | | LABORATORY | | | | | | SERVICES, | | | | | | CORE | | + + + + + + + + | Specimen | + + | Blood | + + + + + | Narrative | Performed At | + + + | Must order with concurrent CBC Venous Disease Heparin Protocol | [facility] | | (for [facility]O) Heparin level 6 hrs after every heparin rate change. | LABORATORY | | INR Therapeutic ranges for full anticoagulation: INR for | SERVICES, CORE | | Venous Thromboembolism (2.0 - 3.0) INR | | | INR for most patients with mech. valves (2.5 - 3.5) INR | | | APTT Therapeutic Range: (75 - | | | 120) sec Heparin levels of 0.35 - 0.7 U/mL | | + + + + + + + + | Performing | Address | City/State/Zipcode | Phone Number | | Organization | | | | + + + + + | [facility] | [address] | [place] [address] | | | ARASH, CORE | [address] | | | + + + + + BLOOD GASES, ARTERIAL - LAB (03/17/2017 2:45 AM PDT) + + + + + + | Component | Value | Ref Range | Performed | Pathologist | | | | | At | Signature | + + + + + + | PAT TEMP | 37.3 | Degree C | [facility] | | | ARTERIAL | | | LABORATORY | | | | | | ARASH, | | | | | | CORE | | + + + + + + | FIO2 | 1.00 | | [facility] | | | ARTERIAL | | | LABORATORY | | | | | | SERVICES, | | | | | | CORE | | + + + + + + | PH ARTERIAL | 7.52 (H) | 7.37 - 7.44 | [facility] | | | | | | LABORATORY | | | | | | SERVICES, | | | | | | CORE | | + + + + + + | PCO2 | 30 (L) | 32 - 43 mmHg | [facility] | | | ARTERIAL | | | LABORATORY | | | | | | SERVICES, | | | | | | CORE | | + + + + + + | PO2 | 487 (H) | 72 - 104 mmHg | [facility] | | | ARTERIAL | | | LABORATORY | | | | | | SERVICES, | | | | | | CORE | | + + + + + + | HCO3 | 24 | 21 - 28 mmol/L | [facility] | | | ARTERIAL | | | LABORATORY | | | | | | SERVICES, | | | | | | CORE | | + + + + + + | TOTAL CO2 | 25 | 22 - 28 mmol/L | [facility] | | | ARTERIAL | | | LABORATORY | | | | | | SERVICES, | | | | | | CORE | | + + + + + + | BASE EXCESS | 2.0 | mmol/L | [facility] | | | ARTERIAL | | | LABORATORY | | | | | | SERVICES, | | | | | | CORE | | + + + + + + | O2 SAT, | 99.9 (H) | 92.0 - 98.0 % | [facility] | | | ARTERIAL | | | LABORATORY | | | | | | SERVICES, | | | | | | CORE | | + + + + + + | PAO2/FIO2 | 487 | >300 mmHg | [facility] | | | RATIO | | | LABORATORY | | | | | | SERVICES, | | | | | | CORE | | + + + + + + + + | Specimen | + + | Blood | + + + + + + + | Performing | Address | City/State/Zipcode | Phone Number | | Organization | | | | + + + + + | [facility] | [address] | [place] [address] | | | SERVICES, CORE | [address] | | | + + + + + 12 LEAD ECG (03/17/2017 1:33 AM PDT) + + + + + + | Component | Value | Ref Range | Performed | Pathologist | | | | | At | Signature | + + + + + + | VENTRICULAR | 146 | bpm | [facility] | | | RATE | | | OF | | | | | | CARDIOLOGY | | + + + + + + | ATRIAL RATE | 146 | ms | [facility] | | | | | | OF | | | | | | CARDIOLOGY | | + + + + + + | P-R | 148 | ms | [facility] | | | INTERVAL | | | OF | | | | | | CARDIOLOGY | | + + + + + + | P AXIS | 72 | deg | [facility] | | | | | | OF | | | | | | CARDIOLOGY | | + + + + + + | QRS | 76 | ms | [facility] | | | DURATION | | | OF | | | | | | CARDIOLOGY | | + + + + + + | QT | 264 | ms | [facility] | | | | | | OF | | | | | | CARDIOLOGY | | + + + + + + | QTCB | 412 | ms | [facility] | | | | | | OF | | | | | | CARDIOLOGY | | + + + + + + | R AXIS | -90 | deg | [facility] | | | | | | OF | | | | | | CARDIOLOGY | | + + + + + + | T AXIS | 81 | deg | [facility] | | | | | | OF | | | | | | CARDIOLOGY | | + + + + + + | ECG | SINUS TACHYCARDIA | | [facility] | | | IMPRESSION | | | OF | | | | | | CARDIOLOGY | | + + + + + + | ECG | BORDERLINE LEFT AXIS | | [facility] | | | IMPRESSION | DEVIATION | | OF | | | | | | CARDIOLOGY | | + + + + + + | ECG | LOW VOLTAGE IN FRONTAL | | [facility] | | | IMPRESSION | LEADS | | OF | | | | | | CARDIOLOGY | | + + + + + + | ECG | BORDERLINE R WAVE | | [facility] | | | IMPRESSION | PROGRESSION, ANTERIOR | | OF | | | | LEADS- BORDERLINE ECG - | | CARDIOLOGY | | + + + + + + | ECG | Electronically signed | | [facility] | | | IMPRESSION | by: CARLOS ALBERTO ARMANDO | | OF | | | | 03-17-2017 07:48:39 | | CARDIOLOGY | | + + + + + [...] | + + + + + | [facility] | [address] | [place], [place] | | | CARDIOLOGY | [address] | [address] | | + + + + + RL-OI-LIC-HB,POC RT (03/17/2017 12:44 AM PDT) + + + + + + | Component | Value | Ref Range | Performed | Pathologist | | | | | At | Signature | + + + + + + | HCO3 | 25.9 | 21 - 28 mmol/L | [facility] - | | | ARTERIAL, | | | [facility] | | | POC | | | [facility] | | | | | | OF CARE | | | | | | TESTS | | + + + + + + | PCO2 | 33 | 32 - 43 mmHg | [facility] | | | ART[facility], | | | [facility] | | | POC | | | [place] [place] | | | | | | OF CARE | | | | | | TESTS | | + + + + + + | PH | 7.50 (H) | 7.37 - 7.44 | [facility] | | | ART[facility], | | | [facility] | | | POC | | | [place] [place] | | | | | | OF CARE | | | | | | TESTS | | + + + + + + | O2 SAT | 89.0 (L) | 92.0 - 98.0 % | [facility] - | | | ARTERIAL, | | | [facility] | | | POC | | | [place] [place] | | | | | | OF CARE | | | | | | TESTS | | + + + + + + | PO2 | 47 (AA) | 72 - 104 mmHg | [facility] - | | | ARTERIAL, | | | [facility] | | | POC | | | [place] [place] | | | | | | OF CARE | | | | | | TESTS | | + + + + + + | BASE EXCESS | 2.7 | | [facility] - | | | ART, POC | | | [facility] | | | | | | [place] | | | | | | OF CARE | | | | | | TESTS | | + + + + + + | PAO2/FIO2 | 222.0 (L) | >300 mmHg | [facility] - | | | RATIO, POC | | | [facility] | | | | | | [place] | | | | | | OF CARE | | | | | | TESTS | | + + + + + + | SODIUM, WHL | 139 | 134 - 143 | [facility] - | | | BLD, POC | | mmol/L | [facility] | | | | | | [place] | | | | | | OF CARE | | | | | | TESTS | | + + + + + + | POTASSIUM,W | 4.6 | 3.4 - 5.0 | [facility] - | | | HL BLD, POC | | mmol/L | [facility] | | | | | | [place] | | | | | | OF CARE | | | | | | TESTS | | + + + + + + | SATISH | 1.06 (L) | 1.14 - 1.32 | [facility] - | | | IONIZED | | mmol/L | [facility] | | | CA,WHOLE | | | [place] | | | BLD,POC | | | OF CARE | | | | | | TESTS | | + + + + + + | HEMOGLOBIN, | 9.7 (L) | 13.5 - 17.5 | [facility] - | | | POC | | g/dL | [facility] | | | | | | [facility] | | | | | | OF CARE | | | | | | TESTS | | + + + + + + | LACTATE POC | 2.8 (H) | 0.5 - 1.6 | [facility] - | | | | | mmol/L | [facility] | | | | | | [facility] | | | | | | OF CARE | | | | | | TESTS | | + + + + + + | FIO2 ART, | 21.0 | | [facility] - | | | POC | | | [facility] | | | | | | [place] | | | | | | OF CARE | | | | | | TESTS | | + + + + + + | PAT TEMP | 37.3 | | [facility] - | | | ART, POC | | | [facility] | | | | | | [facility] | | | | | | OF CARE | | | | | | TESTS | | + + + + + + + + | Specimen | + + | Blood | + + + + + + + | Performing | Address | City/State/Zipcode | Phone Number | | Organization | | | | + + + + + | [facility] | [address] | [place], [place] | | | [facility] | [address] | [address] | | | TESTS | | | | + + + + + CAPILLARY BLOOD GLUCOSE (NO CHG), POC (03/17/2017 12:41 AM PDT) + +---------+ + + + | Component | Value | Ref Range | Performed | Pathologist | | | | | At | Signature | + +---------+ + + + | BLOOD | 124 (H) | 60 - 99 mg/dL | [facility] - | | | GLUCOSE, | | | [facility] | | | POC | | | [facility] | | | | | | OF CARE | | | | | | TESTS | | + +---------+ + + + + + | Specimen | + + | | + + + + + + + | Performing | Address | City/State/Zipcode | Phone Number | | Organization | | | | + + + + + | [facility] | [address] | [place], [place] | | | [facility] | [address] | [address] | | | TESTS | | | | + + + + + THROMBELASTOGRAPH, POC (03/17/2017 12:19 AM PDT) + +-------+ + + + | Component | Value | Ref Range | Performed | Pathologist | | | | | At | Signature | + +-------+ + + + | R - | 7.2 | 5 - 10 Minutes | [facility] - | | | [facility] | | | [facility] | | | | | | [facility] | | | | | | OF CARE | | | | | | TESTS | | + +-------+ + + + | K - | 1.9 | 1 - 3 Minutes | [facility] - | | | CITRATED | | | [facility] | | | | | | [place] [place] | | | | | | OF CARE | | | | | | TESTS | | + +-------+ + + + | ANGLE - | 69.4 | 53 - 72 Degrees | [facility] - | | | CITRATED | | | [facility] | | | | | | [place], POINT | | | | | | OF CARE | | | | | | TESTS | | + +-------+ + + + | MAXIMUM | 67.2 | 55 - 70 mm | [facility] - | | | AMPLITUDE - | | | [facility] | | | CITRATED | | | [place], POINT | | | | | | OF CARE | | | | | | TESTS | | + +-------+ + + + | LY 30 | 0.0 | 0 - 8 % | [facility] | | | | | | [facility] | | | | | | [place] [place] | | | | | | OF CARE | | | | | | TESTS | | + +-------+ + + + | CLOT INDEX | 0.3 | -3 - 3 | [facility] - | | | | | | [facility] | | | | | | [place] | | | | | | OF CARE | | | | | | TESTS | | + +-------+ + + + + + | Specimen | + + | Blood | + + + + + | Impressions | Performed At | + + + | A standard citrated kaolin TEG was performed R time is normal. | [facility] - | | ALPHA angle is normal. MA is normal. Normal LY30 | [facility], | | corresponds to normal fibrinolysis Overall, TEG suggests normal | POINT OF CARE | | coagulation. See Media Tab in Chart Review for TEG tracing | TESTS | | Electronically signed on 07/27/2017 at 3:40 PM Rocio Galloway MD | | + + + + + + + + | Performing | Address | City/State/Zipcode | Phone Number | | Organization | | | | + + + + + | [facility] | [address] | [place], [place] | | | [facility] | [address] | [address] | | | TESTS | | | | + + + + + BLOOD GASES, ARTERIAL - LAB (03/17/2017 12:05 AM PDT) + + + + + + | Component | Value | Ref Range | Performed | Pathologist | | | | | At | Signature | + + + + + + | PAT TEMP | 37.3 | Degree C | [facility] | | | ARTERIAL | | | LABORATORY | | | | | | SERVICES, | | | | | | CORE | | + + + + + + | FIO2 | 1.00 | | [facility] | | | ARTERIAL | | | LABORATORY | | | | | | SERVICES, | | | | | | CORE | | + + + + + + | PH ARTERIAL | 7.45 (H) | 7.37 - 7.44 | [facility] | | | | | | LABORATORY | | | | | | SERVICES, | | | | | | CORE | | + + + + + + | PCO2 | 36 | 32 - 43 mmHg | [facility] | | | ARTERIAL | | | LABORATORY | | | | | | SERVICES, | | | | | | CORE | | + + + + + + | PO2 | 49 (L) | 72 - 104 mmHg | [facility] | | | ARTERIAL | | | LABORATORY | | | | | | SERVICES, | | | | | | CORE | | + + + + + + | HCO3 | 25 | 21 - 28 mmol/L | [facility] | | | ARTERIAL | | | LABORATORY | | | | | | SERVICES, | | | | | | CORE | | + + + + + + | TOTAL CO2 | 26 | 22 - 28 mmol/L | [facility] | | | ARTERIAL | | | LABORATORY | | | | | | SERVICES, | | | | | | CORE | | + + + + + + | BASE EXCESS | 1.4 | mmol/L | [facility] | | | ARTERIAL | | | LABORATORY | | | | | | SERVICES, | | | | | | CORE | | + + + + + + | O2 SAT, | 85.9 (L) | 92.0 - 98.0 % | [facility] | | | ARTERIAL | | | LABORATORY | | | | | | SERVICES, | | | | | | CORE | | + + + + + + | PAO2/FIO2 | 49 (L) | >300 mmHg | [facility] | | | RATIO | | | LABORATORY | | | | | | SERVICES, | | | | | | CORE | | + + + + + + + + | Specimen | + + | Blood | + + + + + + + | Performing | Address | City/State/Zipcode | Phone Number | | Organization | | | | + + + + + | [facility] | [address] | [place] [address] | | | SERVICES, CORE | [address] | | | + + + + + CAPILLARY BLOOD GLUCOSE (NO CHG), POC (03/16/2017 11:28 PM PDT) + +---------+ + + + | Component | Value | Ref Range | Performed | Pathologist | | | | | At | Signature | + +---------+ + + + | BLOOD | 121 (H) | 60 - 99 mg/dL | [facility] - | | | GLUCOSE, | | | [facility] | | | POC | | | [place] [place] | | | | | | OF CARE | | | | | | TESTS | | + +---------+ + + + + + | Specimen | + + | | + + + + + + + | Performing | Address | City/State/Zipcode | Phone Number | | Organization | | | | + + + + + | [facility] | [address] | [place], [place] | | | [facility] | [address] | [address] | | | TESTS | | | | + + + + + CAPILLARY BLOOD GLUCOSE (NO CHG), POC (03/16/2017 9:20 PM PDT) + +---------+ + + + | Component | Value | Ref Range | Performed | Pathologist | | | | | At | Signature | + +---------+ + + + | BLOOD | 115 (H) | 60 - 99 mg/dL | [facility] - | | | GLUCOSE, | | | [facility] | | | POC | | | [facility] | | | | | | OF CARE | | | | | | TESTS | | + +---------+ + + + + + | Specimen | + + | | + + + + + + + | Performing | Address | City/State/Zipcode | Phone Number | | Organization | | | | + + + + + | [facility] | [address] | [place], [place] | | | [facility] | [address] | [address] | | | TESTS | | | | + + + + + HEPARIN, EITHER STANDARD / LMW, BLOOD (03/16/2017 8:28 PM PDT) + +-------+ + + + | Component | Value | Ref Range | Performed | Pathologist | | | | | At | Signature | + +-------+ + + + | HEPARIN, | 0.19 | U/mL | [facility] | | | STD LMW | | | LABORATORY | | | | | | SERVICES, | | | | | | CORE | | + +-------+ + + + + + | Specimen | + + | Blood | + + + + + | Narrative | Performed At | + + + | Venous Disease Heparin Protocol (for [facility]) Heparin level 6 | [facility] | | hrs after every heparin rate change. Heparin, Either STD/LMW - | LABORATORY | | Therapeutic Ranges: Heparin, Unfractionated: 0.35 - 0.70 U/mL | SERVICES, CORE | | Enoxaparin, LMWH: 0.70 - 1.20 U/mL Dalteparin, | | | LMWH: 0.70 - 1.20 U/mL Tinzaparin, | | | LMWH: Therapeutic range not established. | | | Preliminary | | | studies suggest range | | | similar to | | | dalteparin. Clinical | | | correlation | | | required. Heparin levels may be unreliable for: | | | Total bilirubin | | | >28.8 mg/dL | | | Triglycerides | | | >690 mg/dL or | | | Moderate to Gross Hemolysis | | + + + + + + + + | Performing | Address | City/State/Zipcode | Phone Number | | Organization | | | | + + + + + | [facility] | [address] | [place] [address] | | | [facility] | [address] | | | + + + + + CAPILLARY BLOOD GLUCOSE (NO CHG), POC (03/16/2017 7:16 PM PDT) + +---------+ + + + | Component | Value | Ref Range | Performed | Pathologist | | | | | At | Signature | + +---------+ + + + | BLOOD | 111 (H) | 60 - 99 mg/dL | [facility] - | | | GLUCOSE, | | | [facility] | | | POC | | | [facility] | | | | | | OF CARE | | | | | | TESTS | | + +---------+ + + + + + | Specimen | + + | | + + + + + + + | Performing | Address | City/State/Zipcode | Phone Number | | Organization | | | | + + + + + | [facility] | [address] | [place], [place] | | | [facility] | [facility] | [address] | | | TESTS | | | | + + + + + BLOOD GASES, ARTERIAL - LAB (03/16/2017 5:39 PM PDT) + + + + + + | Component | Value | Ref Range | Performed | Pathologist | | | | | At | Signature | + + + + + + | PAT TEMP | 36.4 | Degree C | [facility] | | | ARTERIAL | | | LABORATORY | | | | | | SERVICES, | | | | | | CORE | | + + + + + + | FIO2 | 1.00 | | [facility] | | | ARTERIAL | | | LABORATORY | | | | | | SERVICES, | | | | | | CORE | | + + + + + + | PH ARTERIAL | 7.38 | 7.37 - 7.44 | [facility] | | | | | | LABORATORY | | | | | | SERVICES, | | | | | | CORE | | + + + + + + | PCO2 | 41 | 32 - 43 mmHg | [facility] | | | ARTERIAL | | | LABORATORY | | | | | | SERVICES, | | | | | | CORE | | + + + + + + | PO2 | 399 (H) | 72 - 104 mmHg | [facility] | | | ARTERIAL | | | LABORATORY | | | | | | SERVICES, | | | | | | CORE | | + + + + + + | HCO3 | 24 | 21 - 28 mmol/L | [facility] | | | ARTERIAL | | | LABORATORY | | | | | | SERVICES, | | | | | | CORE | | + + + + + + | TOTAL CO2 | 25 | 22 - 28 mmol/L | [facility] | | | ARTERIAL | | | LABORATORY | | | | | | SERVICES, | | | | | | CORE | | + + + + + + | BASE EXCESS | -1.1 | mmol/L | [facility] | | | ARTERIAL | | | LABORATORY | | | | | | SERVICES, | | | | | | CORE | | + + + + + + | O2 SAT, | 99.7 (H) | 92.0 - 98.0 % | [facility] | | | ARTERIAL | | | LABORATORY | | | | | | SERVICES, | | | | | | CORE | | + + + + + + | PAO2/FIO2 | 399 | >300 mmHg | [facility] | | | RATIO | | | LABORATORY | | | | | | SERVICES, | | | | | | CORE | | + + + + + + + + | Specimen | + + | Blood | + + + + + + + | Performing | Address | City/State/Zipcode | Phone Number | | Organization | | | | + + + + + | [facility] | [address] | [place] [address] | | | SERVICES, CORE | [address] | | | + + + + + CAPILLARY BLOOD GLUCOSE (NO CHG), POC (03/16/2017 5:05 PM PDT) + +---------+ + + + | Component | Value | Ref Range | Performed | Pathologist | | | | | At | Signature | + +---------+ + + + | BLOOD | 117 (H) | 60 - 99 mg/dL | [facility] - | | | GLUCOSE, | | | [facility] | | | POC | | | [facility] | | | | | | OF CARE | | | | | | TESTS | | + +---------+ + + + + + | Specimen | + + | | + + + + + + + | Performing | Address | City/State/Zipcode | Phone Number | | Organization | | | | + + + + + | [facility] | [address] | [place], [place] | | | [facility] | [address] | [address] | | | TESTS | | | | + + + + + CAPILLARY BLOOD GLUCOSE (NO CHG), POC (03/16/2017 4:01 PM PDT) + +---------+ + + + | Component | Value | Ref Range | Performed | Pathologist | | | | | At | Signature | + +---------+ + + + | BLOOD | 109 (H) | 60 - 99 mg/dL | [facility] - | | | GLUCOSE, | | | [facility] | | | POC | | | [facility] | | | | | | OF CARE | | | | | | TESTS | | + +---------+ + + + + + | Specimen | + + | | + + + + + + + | Performing | Address | City/State/Zipcode | Phone Number | | Organization | | | | + + + + + | [facility] | [address] | [place], [place] | | | [facility] | [facility] | [address] | | | TESTS | | | | + + + + + ART LINE (03/16/2017 3:32 PM PDT) + + + | Narrative | Performed At | + + + | Teddy Kee DO, 03/16/2017 2:43 PM ARTERIAL LINE | | | Performed by: TEDDY KEE Authorized by: MELLISA HAJI | | | ART Line Insertion Procedure Note Indications: Beat to beat blood | | | pressure monitoring and Frequent lab draws Procedure location: | | | 12K Providers: Attending name: Attending physically present: | | | Yes Fellow name: rina Pre-Procedure Consent: written consent | | | not obtained Verbal consent obtained Consent given by: Next of | | | kin Patient identity confirmed per policy: Yes Team Pause: | | | Immediatly prior to the procedure a pause per protocol was called. A | | | pause verifies correct patient, procedure, equipment, cryptologic support specialist | | | and site/side marked as required. CLABSI Prevention Bundle: | | | Insertion site: Left Radial Skin preparation: Chloraprep Protective | | | barrier: Cap, Mask, Hand scrub, Gloves and Partially draped. | | | Sterile Ultrasound Used, Line secured: Suture Anesthesia | | | Anesthesia: none Procedure Details Patient was placed in | | | appropriate position Catheter size: 20g Line was secured by | | | suture Procedure comments: Unable to thread wire with 20ga. 22ga | | | easily placed. Right radial not possible, no flow in radial vessel. | | | Attempts 2 attempt(s) were made. Complications Type: | | | None | | + + + BLOOD GASES, ARTERIAL - LAB (03/16/2017 2:47 PM PDT) + + + + + + | Component | Value | Ref Range | Performed | Pathologist | | | | | At | Signature | + + + + + + | PAT TEMP | 36 | Degree C | [facility] | | | ARTERIAL | | | LABORATORY | | | | | | SERVICES, | | | | | | CORE | | + + + + + + | FIO2 | 1.00 | | [facility] | | | ARTERIAL | | | LABORATORY | | | | | | SERVICES, | | | | | | CORE | | + + + + + + | PH ARTERIAL | 7.29 (L) | 7.37 - 7.44 | [facility] | | | | | | LABORATORY | | | | | | SERVICES, | | | | | | CORE | | + + + + + + | PCO2 | 50 (H) | 32 - 43 mmHg | [facility] | | | ARTERIAL | | | LABORATORY | | | | | | SERVICES, | | | | | | CORE | | + + + + + + | PO2 | 467 (H) | 72 - 104 mmHg | [facility] | | | ARTERIAL | | | LABORATORY | | | | | | SERVICES, | | | | | | CORE | | + + + + + + | HCO3 | 24 | 21 - 28 mmol/L | [facility] | | | ARTERIAL | | | LABORATORY | | | | | | SERVICES, | | | | | | CORE | | + + + + + + | TOTAL CO2 | 25 | 22 - 28 mmol/L | [facility] | | | ARTERIAL | | | LABORATORY | | | | | | SERVICES, | | | | | | CORE | | + + + + + + | BASE EXCESS | -2.8 | mmol/L | [facility] | | | ARTERIAL | | | LABORATORY | | | | | | SERVICES, | | | | | | CORE | | + + + + + + | O2 SAT, | 99.6 (H) | 92.0 - 98.0 % | [facility] | | | ARTERIAL | | | LABORATORY | | | | | | SERVICES, | | | | | | CORE | | + + + + + + | PAO2/FIO2 | 467 | >300 mmHg | [facility] | | | RATIO | | | LABORATORY | | | | | | SERVICES, | | | | | | CORE | | + + + + + + + + | Specimen | + + | Blood | + + + + + + + | Performing | Address | City/State/Zipcode | Phone Number | | Organization | | | | + + + + + | [facility] | [address] | [place] [address] | | | SERVICES, CORE | [address] | | | + + + + + CBC (HEMOGRAM) ONLY (03/16/2017 2:46 PM PDT) + + + + + + | Component | Value | Ref Range | Performed | Pathologist | | | | | At | Signature | + + + + + + | WHITE CELL | 18.24 (H) | 3.50 - 10.80 | [facility] | | | COUNT | | K/cu mm | LABORATORY | | | | | | SERVICES, | | | | | | CORE | | + + + + + + | RED CELL | 3.40 (L) | 4.50 - 6.00 | [facility] | | | COUNT | | M/cu mm | LABORATORY | | | | | | SERVICES, | | | | | | CORE | | + + + + + + | HEMOGLOBIN | 11.0 (L) | 13.5 - 17.5 | [facility] | | | | | g/dL | LABORATORY | | | | | | SERVICES, | | | | | | CORE | | + + + + + + | HEMATOCRIT | 31.9 (L) | 41.0 - 53.0 % | [facility] | | | | | | LABORATORY | | | | | | SERVICES, | | | | | | CORE | | + + + + + + | MCV | 93.8 | 80.0 - 96.0 fL | [facility] | | | | | | LABORATORY | | | | | | SERVICES, | | | | | | CORE | | + + + + + + | MCHC | 34.5 | 33.0 - 35.5 | [facility] | | | | | g/dL | LABORATORY | | | | | | SERVICES, | | | | | | CORE | | + + + + + + | RDW SD | 48.9 (H) | 35.1 - 46.3 fL | [facility] | | | | | | LABORATORY | | | | | | SERVICES, | | | | | | CORE | | + + + + + + | PLATELET | 148 (L) | 150 - 400 K/cu | [facility] | | | COUNT | | mm | LABORATORY | | | | | | SERVICES, | | | | | | CORE | | + + + + + + | MPV | 10.7 | 9.7 - 12.3 fL | [facility] | | | | | | LABORATORY | | | | | | SERVICES, | | | | | | CORE | | + + + + + + | NRBC% | 0.0 | 0.0 - 0.3 % | [facility] | | | | | | LABORATORY | | | | | | SERVICES, | | | | | | CORE | | + + + + + + | NRBC# | 0.00 | 0.00 - 0.02 | [facility] | | | | | K/cu mm | LABORATORY | | | | | | SERVICES, | | | | | | CORE | | + + + + + + + + | Specimen | + + | Blood | + + + + + | Narrative | Performed At | + + + | Must be ordered if Coagulopathy Panel is ordered | [facility] | | | LABORATORY | | | SERVICES, CORE | + + + + + + + + | Performing | Address | City/State/Zipcode | Phone Number | | Organization | | | | + + + + + | [facility] | [address] | [place] [address] | | | SERVICES, CORE | [address] | | | + + + + + LACTATE (03/16/2017 2:46 PM PDT) + +-------+ + + + | Component | Value | Ref Range | Performed | Pathologist | | | | | At | Signature | + +-------+ + + + | LACTATE | 3.0 | mmol/L | [facility] | | | | | | LABORATORY | | | | | | SERVICES, | | | | | | CORE | | + +-------+ + + + + + | Specimen | + + | Blood | + + + + + | Narrative | Performed At | + + + | Reference Range: Venous blood: 0.5 - 2.2 mmol/L Critical | [facility] | | >= 4.0 mmol/L Arterial blood: 0.5 - 1.6 mmol/L Critical >= 4.0 | LABORATORY | | mmol/L | SERVICES, CORE | + + + + + + + + | Performing | Address | City/State/Zipcode | Phone Number | | Organization | | | | + + + + + | [facility] | [address] | [place] [address] | | | SERVICES, CORE | [address] | | | + + + + + BLOOD GASES, VENOUS - LAB (03/16/2017 2:46 PM PDT) + + + + + + | Component | Value | Ref Range | Performed | Pathologist | | | | | At | Signature | + + + + + + | PH VENOUS | 7.26 (L) | 7.35 - 7.45 | [facility] | | | | | | LABORATORY | | | | | | SERVICES, | | | | | | CORE | | + + + + + + | PCO2 VENOUS | 58 (H) | 35 - 50 mmHg | [facility] | | | | | | LABORATORY | | | | | | SERVICES, | | | | | | CORE | | + + + + + + | PO2 VENOUS | 42 | 30 - 55 mmHg | [facility] | | | | | | LABORATORY | | | | | | SERVICES, | | | | | | CORE | | + + + + + + | HCO3 VENOUS | 25 | 22 - 28 mmol/L | [facility] | | | | | | LABORATORY | | | | | | SERVICES, | | | | | | CORE | | + + + + + + | BASE EXCESS | -2.2 | mmol/L | [facility] | | | VENOUS | | | LABORATORY | | | | | | SERVICES, | | | | | | CORE | | + + + + + + | O2 SAT, | 73.2 | No range has | [facility] | | | VENOUS | | been | LABORATORY | | | | | established % | SERVICES, | | | | | | CORE | | + + + + + + | TOTAL CO2 | 27 | 23 - 29 mmol/L | [facility] | | | VENOUS | | | LABORATORY | | | | | | SERVICES, | | | | | | CORE | | + + + + + + + + | Specimen | + + | Blood | + + + + + + + | Performing | Address | City/State/Zipcode | Phone Number | | Organization | | | | + + + + + | [facility] | [address] | [place] [address] | | | SERVICES, CORE | [address] | | | + + + + + RENAL FUNCTION SET (NA,K,CL,CO2,BUN,CREAT,GLUC,CA,PHOS,ALB ) (03/16/2017 2:46 PM PDT) + + + + + + | Component | Value | Ref Range | Performed | Pathologist | | | | | At | Signature | + + + + + + | GLUCOSE, | 145 (H) | 60 - 99 mg/dL | [facility] | | | PLASMA | | | LABORATORY | | | (LAB) | | | SERVICES, | | | | | | CORE | | + + + + + + | BUN, PLASMA | 23 (H) | 6 - 20 mg/dL | [facility] | | | (LAB) | | | LABORATORY | | | | | | SERVICES, | | | | | | CORE | | + + + + + + | CREATININE | 1.32 (H) | 0.70 - 1.30 | [facility] | | | PLASMA | | mg/dL | LABORATORY | | | (LAB) | | | SERVICES, | | | | | | CORE | | + + + + + + | EGFR | >60 | >60 mL/min | [facility] | | | - | | | LABORATORY | | | SLOVENIAN | | | SERVICES, | | | | | | CORE | | + + + + + + | EGFR NON | 55 (L) | >60 mL/min | [facility] | | | -SOREN | | | LABORATORY | | | RICAN | | | SERVICES, | | | | | | CORE | | + + + + + + | SODIUM, | 142 | 136 - 145 | [facility] | | | PLASMA | | mmol/L | LABORATORY | | | (LAB) | | | SERVICES, | | | | | | CORE | | + + + + + + | POTASSIUM, | 4.3 | 3.4 - 5.0 | [facility] | | | PLASMA | | mmol/L | LABORATORY | | | (LAB) | | | SERVICES, | | | | | | CORE | | + + + + + + | CHLORIDE, | 109 (H) | 97 - 108 mmol/L | [facility] | | | PLASMA | | | LABORATORY | | | (LAB) | | | SERVICES, | | | | | | CORE | | + + + + + + | TOTAL CO2, | 24 | 21 - 32 mmol/L | [facility] | | | PLASMA | | | LABORATORY | | | (LAB) | | | SERVICES, | | | | | | CORE | | + + + + + + | CALCIUM, | 7.5 (L) | 8.6 - 10.2 | [facility] | | | PLASMA | | mg/dL | LABORATORY | | | (LAB) | | | SERVICES, | | | | | | CORE | | + + + + + + | CALCIUM(ALB | 8.9 | 8.6 - 10.2 | [facility] | | | CORRECTED) | | mg/dL | LABORATORY | | | | | | SERVICES, | | | | | | CORE | | + + + + + + | ALBUMIN, | 2.3 (L) | 3.5 - 4.7 g/dL | [facility] | | | PLASMA | | | LABORATORY | | | (LAB) | | | SERVICES, | | | | | | CORE | | + + + + + + | PHOSPHORUS, | 4.0 | 2.4 - 4.7 mg/dL | [facility] | | | PLASMA | | | LABORATORY | | | (LAB) | | | SERVICES, | | | | | | CORE | | + + + + + + | POTASSIUM | No Hemo | | [facility] | | | CMNT | | | LABORATORY | | | | | | SERVICES, | | | | | | CORE | | + + + + + + | ANION GAP | 9 | mmol/L | [facility] | | | | | | LABORATORY | | | | | | SERVICES, | | | | | | CORE | | + + + + + + | ANION | 13 (H) | 4 - 11 mmol/L | [facility] | | | GAP(ALB | | | LABORATORY | | | CORRECTED) | | | SERVICES, | | | | | | CORE | | + + + + + + + + | Specimen | + + | Blood | + + + + + | Narrative | Performed At | + + + | GFR is estimated using the MDRD equation recommended by the | [facility] | | National Kidney Disease Education Program. Estimated GFR | LABORATORY | | Interpretive Information: <60 mL/min/1.73 sq | [facility], CORE | | m Chronic Kidney Disease <15 mL/min/1.73 | | | sq m Kidney Failure Estimated GFR greater | | | that 60 mL/min/1.73 sq m is of limited clinical value. The MDRD | | | equation is not valid in the following situations: - Patients under | | | 18 years of age - Severe malnutrition or obesity - Vegetarian diet | | | - Rapidly changing kidney function | | + + + + + + + + | Performing | Address | City/State/Zipcode | Phone Number | | Organization | | | | + + + + + | [facility] | [address] | [place] [address] | | | [facility] | [address] | | | + + + + + COAGULOPATHY PANEL (INR,APTT,FIBRINOGEN) (03/16/2017 2:46 PM PDT) + + + + + + | Component | Value | Ref Range | Performed | Pathologist | | | | | At | Signature | + + + + + + | INR | 1.21 (H) | 0.90 - 1.20 INR | [facility] | | | | | | LABORATORY | | | | | | SERVICES, | | | | | | CORE | | + + + + + + | APTT | 34.9 | 26.0 - 36.0 | [facility] | | | | | seconds | LABORATORY | | | | | | SERVICES, | | | | | | CORE | | + + + + + + | FIBRINOGEN | 505 (H) | 200 - 450 mg/dL | [facility] | | | LEVEL | | | LABORATORY | | | | | | SERVICES, | | | | | | CORE | | + + + + + + + + | Specimen | + + | Blood | + + + + + | Narrative | Performed At | + + + | Must order with concurrent CBC INR Therapeutic ranges for full | [facility] | | anticoagulation: INR for Venous | LABORATORY | | Thromboembolism (2.0 - 3.0) INR INR for | SERVICES, CORE | | most patients with mech. valves (2.5 - 3.5) INR APTT | | | Therapeutic Range: (75 - 120) | | | sec Heparin levels of 0.35 - 0.7 U/mL | | + + + + + + + + | Performing | Address | City/State/Zipcode | Phone Number | | Organization | | | | + + + + + | [facility] | [address] | [place] [address] | | | SERVICES, CORE | [address] | | | + + + + + BLOOD GASES, ARTERIAL - LAB (03/16/2017 2:46 PM PDT) + + + + + + | Component | Value | Ref Range | Performed | Pathologist | | | | | At | Signature | + + + + + + | PAT TEMP | 36 | Degree C | [facility] | | | ARTERIAL | | | LABORATORY | | | | | | SERVICES, | | | | | | CORE | | + + + + + + | FIO2 | >1.00 | | [facility] | | | ARTERIAL | | | LABORATORY | | | | | | SERVICES, | | | | | | CORE | | + + + + + + | PH ARTERIAL | 7.30 (L) | 7.37 - 7.44 | [facility] | | | | | | LABORATORY | | | | | | SERVICES, | | | | | | CORE | | + + + + + + | PCO2 | 48 (H) | 32 - 43 mmHg | [facility] | | | ARTERIAL | | | LABORATORY | | | | | | SERVICES, | | | | | | CORE | | + + + + + + | PO2 | 296 (H) | 72 - 104 mmHg | [facility] | | | ARTERIAL | | | LABORATORY | | | | | | SERVICES, | | | | | | CORE | | + + + + + + | HCO3 | 23 | 21 - 28 mmol/L | [facility] | | | ARTERIAL | | | LABORATORY | | | | | | SERVICES, | | | | | | CORE | | + + + + + + | TOTAL CO2 | 25 | 22 - 28 mmol/L | [facility] | | | ARTERIAL | | | LABORATORY | | | | | | SERVICES, | | | | | | CORE | | + + + + + + | BASE EXCESS | -2.9 | mmol/L | [facility] | | | ARTERIAL | | | LABORATORY | | | | | | SERVICES, | | | | | | CORE | | + + + + + + | O2 SAT, | 99.2 (H) | 92.0 - 98.0 % | [facility] | | | ARTERIAL | | | LABORATORY | | | | | | SERVICES, | | | | | | CORE | | + + + + + + | PAO2/FIO2 | <296 (L) | >300 mmHg | [facility] | | | RATIO | | | LABORATORY | | | | | | SERVICES, | | | | | | CORE | | + + + + + + + + | Specimen | + + | Blood | + + + + + + + | Performing | Address | City/State/Zipcode | Phone Number | | Organization | | | | + + + + + | [facility] | [address] | [place] [address] | | | SERVICES, CORE | [address] | | | + + + + + CAPILLARY BLOOD GLUCOSE (NO CHG), POC (03/16/2017 2:37 PM PDT) + +---------+ + + + | Component | Value | Ref Range | Performed | Pathologist | | | | | At | Signature | + +---------+ + + + | BLOOD | 130 (H) | 60 - 99 mg/dL | [facility] | | | GLUCOSE, | | | [facility] | | | POC | | | [facility] | | | | | | OF CARE | | | | | | TESTS | | + +---------+ + + + + + | Specimen | + + | | + + + + + + + | Performing | Address | City/State/Zipcode | Phone Number | | Organization | | | | + + + + + | [facility] | [address] | [place], [place] | | | [facility] | [address] | [phone] | | | TESTS | | | | + + + + + CAPILLARY BLOOD GLUCOSE (NO CHG), POC (03/16/2017 1:33 PM PDT) + +-------+ + + + | Component | Value | Ref Range | Performed | Pathologist | | | | | At | Signature | + +-------+ + + + | BLOOD | 98 | 60 - 99 mg/dL | [facility] | | | GLUCOSE, | | | [facility] | | | POC | | | [facility] | | | | | | OF CARE | | | | | | TESTS | | + +-------+ + + + + + | Specimen | + + | | + + + + + + + | Performing | Address | City/State/Zipcode | Phone Number | | Organization | | | | + + + + + | [facility] | [address] | [place], [place] | | | [facility] | [address] | [phone] | | | TESTS | | | | + + + + + CAPILLARY BLOOD GLUCOSE (NO CHG), POC (03/16/2017 1:16 PM PDT) + +-------+ + + + | Component | Value | Ref Range | Performed | Pathologist | | | | | At | Signature | + +-------+ + + + | BLOOD | 90 | 60 - 99 mg/dL | [facility] | | | GLUCOSE, | | | [facility] | | | POC | | | [facility] | | | | | | OF CARE | | | | | | TESTS | | + +-------+ + + + + + | Specimen | + + | | + + + + + + + | Performing | Address | City/State/Zipcode | Phone Number | | Organization | | | | + + + + + | [facility] | [address] | [place], [place] | | | [facility] | [address] | [address] | | | TESTS | | | | + + + + + CAPILLARY BLOOD GLUCOSE (NO CHG), POC (03/16/2017 12:12 PM PDT) + +---------+ + + + | Component | Value | Ref Range | Performed | Pathologist | | | | | At | Signature | + +---------+ + + + | BLOOD | 138 (H) | 60 - 99 mg/dL | [facility] | | | GLUCOSE, | | | [facility] | | | POC | | | [facility] | | | | | | OF CARE | | | | | | TESTS | | + +---------+ + + + + + | Specimen | + + | | + + + + + + + | Performing | Address | City/State/Zipcode | Phone Number | | Organization | | | | + + + + + | [facility] | [address] | [place], [place] | | | [facility] | [address] | [address] | | | TESTS | | | | + + + + + APTT (ACT. PART. THROMBO TIME) (03/16/2017 12:01 PM PDT) + +-------+ + + + | Component | Value | Ref Range | Performed | Pathologist | | | | | At | Signature | + +-------+ + + + | APTT | 32.2 | 26.0 - 36.0 | [facility] | | | | | seconds | LABORATORY | | | | | | SERVICES, | | | | | | CORE | | + +-------+ + + + + + | Specimen | + + | Blood | + + + + + | Narrative | Performed At | + + + | APTT Therapeutic | [facility] | | Range: (75 - 120) sec | LABORATORY | | Heparin levels of 0.35 - 0.7 U/mL | [facility] | + + + + + + + + | Performing | Address | City/State/Zipcode | Phone Number | | Organization | | | | + + + + + | [facility] | [address] | [place] [address] | | | ИР[facility]НА ANTOINE | [address] | | | + + + + + RENAL FUNCTION SET (NA,K,CL,CO2,BUN,CREAT,GLUC,CA,PHOS,ALB ) (03/16/2017 11:58 AM PDT) + + + + + + | Component | Value | Ref Range | Performed | Pathologist | | | | | At | Signature | + + + + + + | GLUCOSE, | 144 (H) | 60 - 99 mg/dL | [facility] | | | PLASMA | | | LABORATORY | | | (LAB) | | | SERVICES, | | | | | | CORE | | + + + + + + | BUN, PLASMA | 24 (H) | 6 - 20 mg/dL | [facility] | | | (LAB) | | | LABORATORY | | | | | | SERVICES, | | | | | | CORE | | + + + + + + | CREATININE | 1.47 (H) | 0.70 - 1.30 | [facility] | | | PLASMA | | mg/dL | LABORATORY | | | (LAB) | | | SERVICES, | | | | | | CORE | | + + + + + + | EGFR | 59 (L) | >60 mL/min | [facility] | | | - | | | LABORATORY | | | SLOVENIAN | | | SERVICES, | | | | | | CORE | | + + + + + + | EGFR NON | 49 (L) | >60 mL/min | [facility] | | | -SOREN | | | LABORATORY | | | RICAN | | | SERVICES, | | | | | | CORE | | + + + + + + | SODIUM, | 142 | 136 - 145 | [facility] | | | PLASMA | | mmol/L | LABORATORY | | | (LAB) | | | SERVICES, | | | | | | CORE | | + + + + + + | POTASSIUM, | 4.4 | 3.4 - 5.0 | [facility] | | | PLASMA | | mmol/L | LABORATORY | | | (LAB) | | | SERVICES, | | | | | | CORE | | + + + + + + | CHLORIDE, | 110 (H) | 97 - 108 mmol/L | [facility] | | | PLASMA | | | LABORATORY | | | (LAB) | | | SERVICES, | | | | | | CORE | | + + + + + + | TOTAL CO2, | 21 | 21 - 32 mmol/L | [facility] | | | PLASMA | | | LABORATORY | | | (LAB) | | | SERVICES, | | | | | | CORE | | + + + + + + | CALCIUM, | 7.5 (L) | 8.6 - 10.2 | [facility] | | | PLASMA | | mg/dL | LABORATORY | | | (LAB) | | | SERVICES, | | | | | | CORE | | + + + + + + | CALCIUM(ALB | 8.9 | 8.6 - 10.2 | [facility] | | | CORRECTED) | | mg/dL | LABORATORY | | | | | | SERVICES, | | | | | | CORE | | + + + + + + | ALBUMIN, | 2.3 (L) | 3.5 - 4.7 g/dL | [facility] | | | PLASMA | | | LABORATORY | | | (LAB) | | | SERVICES, | | | | | | CORE | | + + + + + + | PHOSPHORUS, | 3.9 | 2.4 - 4.7 mg/dL | [facility] | | | PLASMA | | | LABORATORY | | | (LAB) | | | SERVICES, | | | | | | CORE | | + + + + + + | POTASSIUM | Sl Hemo | | [facility] | | | CMNT | | | LABORATORY | | | | | | SERVICES, | | | | | | CORE | | + + + + + + | ANION GAP | 11 | mmol/L | [facility] | | | | | | LABORATORY | | | | | | SERVICES, | | | | | | CORE | | + + + + + + | ANION | 15 (H) | 4 - 11 mmol/L | [facility] | | | GAP(ALB | | | LABORATORY | | | CORRECTED) | | | SERVICES, | | | | | | CORE | | + + + + + + + + | Specimen | + + | Blood | + + + + + | Narrative | Performed At | + + + | Sample hemolyzed. Results for K, Total Bili, Direct Bili, AST, | [facility] | | LDH, or HDL may be inaccurate. Refer to comment under test result. | LABORATORY | | GFR is estimated using the MDRD equation recommended by the National | SERVICES, CORE | | Kidney Disease Education Program. Estimated GFR Interpretive | | | Information: <60 mL/min/1.73 sq m Chronic | | | Kidney Disease <15 mL/min/1.73 sq m | | | Kidney Failure Estimated GFR greater that 60 mL/min/1.73 sq m is of | | | limited clinical value. The MDRD equation is not valid in the | | | following situations: - Patients under 18 years of age - Severe | | | malnutrition or obesity - Vegetarian diet - Rapidly changing kidney | | | function | | + + + + + + + + | Performing | Address | City/State/Zipcode | Phone Number | | Organization | | | | + + + + + | [facility] | [address] | [place] [address] | | | SERVICES, CORE | [address] | | | + + + + + CAPILLARY BLOOD GLUCOSE (NO CHG), POC (03/16/2017 11:12 AM PDT) + +---------+ + + + | Component | Value | Ref Range | Performed | Pathologist | | | | | At | Signature | + +---------+ + + + | BLOOD | 148 (H) | 60 - 99 mg/dL | [facility] | | | GLUCOSE, | | | [facility] | | | POC | | | [facility] | | | | | | OF CARE | | | | | | TESTS | | + +---------+ + + + + + | Specimen | + + | | + + + + + + + | Performing | Address | City/State/Zipcode | Phone Number | | Organization | | | | + + + + + | [facility] | [address] | [place], [place] | | | [facility] | [address] | [phone] | | | TESTS | | | | + + + + + APTT (ACT. PART. THROMBO TIME) (03/16/2017 11:10 AM PDT) + + + + + + | Component | Value | Ref Range | Performed | Pathologist | | | | | At | Signature | + + + + + + | APTT | 57.1 (H) | 26.0 - 36.0 | [facility] | | | | | seconds | LABORATORY | | | | | | SERVICES, | | | | | | CORE | | + + + + + + + + | Specimen | + + | Blood | + + + + + | Narrative | Performed At | + + + | APTT Therapeutic | [facility] | | Range: (75 - 120) sec | LABORATORY | | Heparin levels of 0.35 - 0.7 U/mL | [facility] | + + + + + + + + | Performing | Address | City/State/Zipcode | Phone Number | | Organization | | | | + + + + + | [facility] | [address] | [place] [address] | | | ИР[facility] ANTOINE | [address] | | | + + + + + CAPILLARY BLOOD GLUCOSE (NO CHG), POC (03/16/2017 10:05 AM PDT) + +---------+ + + + | Component | Value | Ref Range | Performed | Pathologist | | | | | At | Signature | + +---------+ + + + | BLOOD | 154 (H) | 60 - 99 mg/dL | [facility] | | | GLUCOSE, | | | [facility] | | | POC | | | [facility] | | | | | | OF CARE | | | | | | TESTS | | + +---------+ + + + + + | Specimen | + + | | + + + + + + + | Performing | Address | City/State/Zipcode | Phone Number | | Organization | | | | + + + + + | [facility] | [address] | [place], [place] | | | [facility] | [address] | [phone] | | | TESTS | | | | + + + + + OPERATION RECORD (03/16/2017 9:30 AM PDT) + + | Procedure Note | + + | Dale Mak MD - 03/15/2017 3:42 PM PDT Date of Service: 03/15/2017 Attending | | Surgeon:Ron Powell MD. Manager Functional(s):Dale Mak MD. | | Preoperative Diagnoses: 1.Cardiogenic shock.2.Status post ST-elevation | | myocardial infarction.3.Status post intra-aortic balloon pump placement.Postoperative | | Diagnoses: 1.Cardiogenic shock.2.Status post ST-elevation myocardial | | infarction.3.Status post intra-aortic balloon pump placement.Surgical Procedure: Left | | femoral artery and vein cannulation for ECMO support.Anesthesia: General endotracheal | | anesthesia.Indications: The patient is a 61-year-old gentleman who presented to an | | outside hospital with ST-elevation myocardial infarction. He was found to have | | subtotally occluded LAD and left circumflex. He suffered a cardiac arrest. His left | | main artery was opened with PCI. He was successfully returned to sinus rhythm, however, | | was suffering from cardiogenic shock. An intra-aortic balloon pump was placed. The | | patient was transferred to [facility] for further management. At [facility], the patient continued | | to be in cardiogenic shock despite the intra-aortic balloon pump support and multiple | | high-dose inotropes. He also had pulmonary congestion and inability to be oxygenated | | despite mechanical ventilation. After a multidisciplinary discussion, it was felt that | | ECMO support was indicated to allow a period of recovery for his left ventricle.Findings | | And Procedure: The procedure was done at the bedside in the ICU. The patient's left | | groin was prepped and draped in the usual sterile fashion. The patient was sedated | | after proper identification. A surgical pause was performed. Under ultrasound guidance, | | the patient's SFA was accessed with a micropuncture kit. A micropuncture kit wire was | | left in the SFA in an antegrade direction for distal limb perfusion. Under ultrasound | | guidance, the left common femoral artery was accessed for cannulation with micropuncture | | wire. A 7-Cymraes sheath was placed in an antegrade direction down the SFA for distal | | perfusion. A 19-Cymraes arterial cannula was placed in a retrograde fashion up the left | | common femoral artery. Under ultrasound guidance, the left femoral vein was accessed for | | venous drainage. Under MARKY guidance, long femoral venous return cannula was placed | | with its tip within the SVC. All cannulas were now de-aired. All cannulas were secured | | and dressed. An ECMO circuit was brought up onto the field. The ECMO circuit was | | connected to the patient's cannulas, and the patient was placed on full ECMO support. | | Flow through the circuit was excellent. The lines were dressed with dry sterile gauze. | | Dr. Ron Powell was the attending for the procedure and was present for the entire | | procedure.DOMENICO Valdez/KOREYD: 03/15/2017 15:23:00DT: 03/15/2017 15:42:27Job #: | | [id number] | | | |A 19-Cymraes arterial cannula was placed in a retrograde fashion up the left common femoral artery. | | | |Under ultrasound guidance, the left femoral vein was accessed for venous drainage. Under T EE guidance, long femoral venous return cannula was placed with its tip within the SVC. | | | |All cannulas were now de-aired. All cannulas were secured and dressed. An ECMO circuit wa s brought up onto the field. The ECMO circuit was connected to the patient's cannulas, and the patient was placed on full | |ECMO support. Flow through the circuit was excellent. The lines were dressed with dry chery rile gauze. | | | |Dr. Ron Powell was the attending for the procedure and was present for the entire proced ure. | | | | | | | |Dale Mak MD | |HS/MODL | | | | | | /[id number] | + + CBC (HEMOGRAM) ONLY (03/16/2017 9:15 AM PDT) + + + + + + | Component | Value | Ref Range | Performed | Pathologist | | | | | At | Signature | + + + + + + | WHITE CELL | 18.74 (H) | 3.50 - 10.80 | [facility] | | | COUNT | | K/cu mm | LABORATORY | | | | | | SERVICES, | | | | | | CORE | | + + + + + + | RED CELL | 3.47 (L) | 4.50 - 6.00 | [facility] | | | COUNT | | M/cu mm | LABORATORY | | | | | | SERVICES, | | | | | | CORE | | + + + + + + | HEMOGLOBIN | 11.3 (L) | 13.5 - 17.5 | [facility] | | | | | g/dL | LABORATORY | | | | | | SERVICES, | | | | | | CORE | | + + + + + + | HEMATOCRIT | 32.3 (L) | 41.0 - 53.0 % | [facility] | | | | | | LABORATORY | | | | | | SERVICES, | | | | | | CORE | | + + + + + + | MCV | 93.1 | 80.0 - 96.0 fL | [facility] | | | | | | LABORATORY | | | | | | SERVICES, | | | | | | CORE | | + + + + + + | MCHC | 35.0 | 33.0 - 35.5 | [facility] | | | | | g/dL | LABORATORY | | | | | | SERVICES, | | | | | | CORE | | + + + + + + | RDW SD | 48.0 (H) | 35.1 - 46.3 fL | [facility] | | | | | | LABORATORY | | | | | | SERVICES, | | | | | | CORE | | + + + + + + | PLATELET | 164 | 150 - 400 K/cu | [facility] | | | COUNT | | mm | LABORATORY | | | | | | SERVICES, | | | | | | CORE | | + + + + + + | MPV | 10.7 | 9.7 - 12.3 fL | [facility] | | | | | | LABORATORY | | | | | | SERVICES, | | | | | | CORE | | + + + + + + | NRBC% | 0.0 | 0.0 - 0.3 % | [facility] | | | | | | LABORATORY | | | | | | SERVICES, | | | | | | CORE | | + + + + + + | NRBC# | 0.00 | 0.00 - 0.02 | [facility] | | | | | K/cu mm | LABORATORY | | | | | | SERVICES, | | | | | | CORE | | + + + + + + + + | Specimen | + + | Blood | + + + + + | Narrative | Performed At | + + + | Q 6 hrs x 24 hrs | [facility] | | | LABORATORY | | | SERVICES, CORE | + + + + + + + + | Performing | Address | City/State/Zipcode | Phone Number | | Organization | | | | + + + + + | [facility] | [address] | [place] [address] | | | [place], [place] | [address] | | | + + + + + HEPARIN, EITHER STANDARD / LMW, BLOOD (03/16/2017 9:15 AM PDT) + +-------+ + + + | Component | Value | Ref Range | Performed | Pathologist | | | | | At | Signature | + +-------+ + + + | HEPARIN, | 0.49 | U/mL | [facility] | | | STD LMW | | | LABORATORY | | | | | | ARASH, | | | | | | CORE | | + +-------+ + + + + + | Specimen | + + | Blood | + + + + + | Narrative | Performed At | + + + | Venous Disease Heparin Protocol (for VA ECMO) Heparin level 6 | [facility] | | hrs after every heparin rate change. Heparin, Either STD/LMW - | LABORATORY | | Therapeutic Ranges: Heparin, Unfractionated: 0.35 - 0.70 U/mL | SERVICES, CORE | | Enoxaparin, LMWH: 0.70 - 1.20 U/mL Dalteparin, | | | LMWH: 0.70 - 1.20 U/mL Tinzaparin, | | | LMWH: Therapeutic range not established. | | | Preliminary | | | studies suggest range | | | similar to | | | dalteparin. Clinical | | | correlation | | | required. Heparin levels may be unreliable for: | | | Total bilirubin | | | >28.8 mg/dL | | | Triglycerides | | | >690 mg/dL or | | | Moderate to Gross Hemolysis | | + + + + + + + + | Performing | Address | City/State/Zipcode | Phone Number | | Organization | | | | + + + + + | [facility] | [address] | [place] [address] | | | SERVICES, CORE | [address] | | | + + + + + HEMOGLOBIN, PLASMA FREE (03/16/2017 9:15 AM PDT) + +---------+ + + + | Component | Value | Ref Range | Performed | Pathologist | | | | | At | Signature | + +---------+ + + + | HEMOGLOBIN, | 150 (H) | <=10 mg/dL | [facility] | | | PLASMA | | | LABORATORY | | | FREE | | | SERVICES, | | | | | | CORE | | + +---------+ + + + + + | Specimen | + + | Blood | + + + + + + + | Performing | Address | City/State/Zipcode | Phone Number | | Organization | | | | + + + + + | [facility] | [address] | [place] [address] | | | SERVICES, CORE | [address] | | | + + + + + CAPILLARY BLOOD GLUCOSE (NO CHG), POC (03/16/2017 9:01 AM PDT) + +---------+ + + + | Component | Value | Ref Range | Performed | Pathologist | | | | | At | Signature | + +---------+ + + + | BLOOD | 150 (H) | 60 - 99 mg/dL | [facility] - | | | GLUCOSE, | | | [facility] | | | POC | | | [facility] | | | | | | OF CARE | | | | | | TESTS | | + +---------+ + + + + + | Specimen | + + | | + + + + + + + | Performing | Address | City/State/Zipcode | Phone Number | | Organization | | | | + + + + + | [facility] | [address] | [place], [place] | | | [facility] | [facility] | [phone] | | | TESTS | | | | + + + + + CAPILLARY BLOOD GLUCOSE (NO CHG), POC (03/16/2017 7:59 AM PDT) + +---------+ + + + | Component | Value | Ref Range | Performed | Pathologist | | | | | At | Signature | + +---------+ + + + | BLOOD | 147 (H) | 60 - 99 mg/dL | [facility] - | | | GLUCOSE, | | | [facility] | | | POC | | | [facility] | | | | | | OF CARE | | | | | | TESTS | | + +---------+ + + + + + | Specimen | + + | | + + + + + + + | Performing | Address | City/State/Zipcode | Phone Number | | Organization | | | | + + + + + | [facility] | [address] | [place], [place] | | | [facility] | [address] | [address] | | | TESTS | | | | + + + + + CAPILLARY BLOOD GLUCOSE (NO CHG), POC (03/16/2017 6:55 AM PDT) + +---------+ + + + | Component | Value | Ref Range | Performed | Pathologist | | | | | At | Signature | + +---------+ + + + | BLOOD | 160 (H) | 60 - 99 mg/dL | [facility] - | | | GLUCOSE, | | | [facility] | | | POC | | | [facility] | | | | | | OF CARE | | | | | | TESTS | | + +---------+ + + + + + | Specimen | + + | | + + + + + + + | Performing | Address | City/State/Zipcode | Phone Number | | Organization | | | | + + + + + | [facility] | [address] | [place], [place] | | | [facility] | [facility] | [address] | | | TESTS | | | | + + + + + X-RAY PORTABLE CHEST 1 VIEW (03/16/2017 5:44 AM PDT) + + | Specimen | + + | | + + + + + | Narrative | Performed At | + + + | EXAM: AL CHEST 1 VIEW HISTORY: Evaluate cannula placement. heart | [facility] | | failure. COMPARISON: Yesterday FINDINGS: Endotracheal | RADIOLOGY VOICE | | tube, [place]-Олег catheter and enteric tube remain in place. Intra-lumen | RECOGNITION | | pump tip projects in the proximal descending thoracic aorta, 3 cm | | | below the top of aortic arch. ECMO cannula tip projects in the lower | | | superior vena cava, approximately 3 cm above the superior cavoatrial | | | junction. Pulmonary vasculature is more distinct. There is no | | | change in asymmetric right upper lobe groundglass/consolidative | | | opacity. Minimal bibasilar atelectasis evident, improved at the right | | | lung base. There is no pneumothorax. Cardiomediastinal silhouette is | | | stable. IMPRESSION: Support equipment as above. Unchanged | | | asymmetric right upper lobe groundglass/consolidative opacity, | | | consider asymmetric edema due to mitral insufficiency or concurrent | | | aspiration/pneumonia. I have personally reviewed the images | | | and, if necessary, edited the report. I agree with the report as | | | now presented. | | + + + + + | Procedure Note | + + | Service Account, [employer] - 03/16/2017 8:27 AM PDT EXAM: AL CHEST 1 | | VIEW HISTORY: Evaluate cannula placement. heart failure.COMPARISON: YesterdayFINDINGS: | | Endotracheal tube, [place]-Олег catheter and enteric tube remain in place. Intra-lumen pump | | tip projects in the proximal descending thoracic aorta, 3 cm below the top of aortic | | arch. ECMO cannula tip projects in the lower superior vena cava, approximately 3 cm | | above the superior cavoatrial junction.Pulmonary vasculature is more distinct. There is | | no change in asymmetric right upper lobe groundglass/consolidative opacity. Minimal | | bibasilar atelectasis evident, improved at the right lung base. There is no | | pneumothorax. Cardiomediastinal silhouette is stable.IMPRESSION: Support equipment as | | above.Unchanged asymmetric right upper lobe groundglass/consolidative opacity, consider | | asymmetric edema due to mitral insufficiency or concurrent aspiration/pneumonia.I have | | personally reviewed the images and, if necessary, edited the report. I agree with the | | report as now presented. | | | |IMPRESSION: | | | |Support equipment as above. | | | |Unchanged asymmetric right upper lobe groundglass/consolidative opacity, consider asymmetri c edema due to mitral insufficiency or concurrent aspiration/pneumonia. | | | | | |I have personally reviewed the images and, if necessary, edited the report. I agree with t he report as now presented. | + + + +---------+ + + | Performing | Address | City/State/Zipcode | Phone Number | | Organization | | | | + +---------+ + + | [facility] | | | | | VOICE RECOGNITION | | | | + +---------+ + + CAPILLARY BLOOD GLUCOSE (NO CHG), POC (03/16/2017 5:30 AM PDT) + +---------+ + + + | Component | Value | Ref Range | Performed | Pathologist | | | | | At | Signature | + +---------+ + + + | BLOOD | 164 (H) | 60 - 99 mg/dL | [facility] | | | GLU[facility], | | | [facility] | | | POC | | | [facility] | | | | | | [facility] | | | | | | TESTS | | + +---------+ + + + + + | Specimen | + + | | + + + + + + + | Performing | Address | City/State/Zipcode | Phone Number | | Organization | | | | + + + + + | [facility] | [address] | [place], [place] | | | [facility] | [address] | [address] | | | TESTS | | | | + + + + + CAPILLARY BLOOD GLUCOSE (NO CHG), POC (03/16/2017 4:23 AM PDT) + +---------+ + + + | Component | Value | Ref Range | Performed | Pathologist | | | | | At | Signature | + +---------+ + + + | BLOOD | 193 (H) | 60 - 99 mg/dL | [facility] | | | GLUCO[facility], | | | [facility] | | | POC | | | [facility] | | | | | | [facility] | | | | | | TESTS | | + +---------+ + + + + + | Specimen | + + | | + + + + + + + | Performing | Address | City/State/Zipcode | Phone Number | | Organization | | | | + + + + + | [facility] | [address] | [place], [place] | | | JULI[facility] S[facility] [place] | [facility] | [address] | | | TESTS | | | | + + + + + KA-HA-VGS-HBPOC RT (03/16/2017 3:42 AM PDT) + + + + + + | Component | Value | Ref Range | Performed | Pathologist | | | | | At | Signature | + + + + + + | HCO3 | 18.0 (L) | 21 - 28 mmol/L | [facility] - | | | ARTERIAL, | | | [facility] | | | POC | | | JULI[facility]IL[facility] | | | | | | OF CARE | | | | | | TESTS | | + + + + + + | PCO2 | 40 | 32 - 43 mmHg | [facility] - | | | ARTERIAL, | | | [facility] | | | POC | | | [facility] | | | | | | OF CARE | | | | | | TESTS | | + + + + + + | PH | 7.26 (L) | 7.37 - 7.44 | [facility] - | | | ARTERIAL, | | | [facility] | | | POC | | | [facility] | | | | | | OF CARE | | | | | | TESTS | | + + + + + + | O2 SAT | 99.6 (H) | 92.0 - 98.0 % | [facility] - | | | ARTERIAL, | | | [facility] | | | POC | | | [facility]INT | | | | | | OF CARE | | | | | | TESTS | | + + + + + + | PO2 | 200 (H) | 72 - 104 mmHg | [facility] - | | | ARTERIAL, | | | [facility] | | | POC | | | [facility], POINT | | | | | | OF CARE | | | | | | TESTS | | + + + + + + | BASE EXCESS | -9.2 | | [facility] - | | | ART, POC | | | [facility] | | | | | | [place], POINT | | | | | | OF CARE | | | | | | TESTS | | + + + + + + | PAO2/FIO2 | 200.0 (L) | >300 mmHg | [facility] - | | | RATIO, POC | | | [facility] | | | | | | [facility], POINT | | | | | | OF CARE | | | | | | TESTS | | + + + + + + | SODIUM, WHL | 140 | 134 - 143 | [facility] - | | | BLD, POC | | mmol/L | [facility] | | | | | | [place] | | | | | | OF CARE | | | | | | TESTS | | + + + + + + | POTASSIUM,W | 3.9 | 3.4 - 5.0 | [facility] - | | | HL BLD, POC | | mmol/L | [facility] | | | | | | [place] | | | | | | OF CARE | | | | | | TESTS | | + + + + + + | SATISH | 1.16 | 1.14 - 1.32 | [facility] - | | | IONIZED | | mmol/L | [facility] | | | CA,WHOLE | | | [facility] | | | BLD,POC | | | OF CARE | | | | | | TESTS | | + + + + + + | HEMOGLOBIN, | 12.2 (L) | 13.5 - 17.5 | [facility] - | | | POC | | g/dL | [facility] | | | | | | [place] | | | | | | OF CARE | | | | | | TESTS | | + + + + + + | LACTATE POC | 6.6 (AA) | 0.5 - 1.6 | [facility] - | | | | | mmol/L | [facility] | | | | | | [facility]UL[facility]IL[facility] | | | | | | OF CARE | | | | | | TESTS | | + + + + + + | FIO2 ART, | 100.0 | | [facility] - | | | POC | | | [facility] | | | | | | [facility] | | | | | | OF CARE | | | | | | TESTS | | + + + + + + | PAT TEMP | 36.1 | | [facility] - | | | ART, POC | | | [facility] | | | | | | [facility] | | | | | | OF CARE | | | | | | TESTS | | + + + + + + + + | Specimen | + + | Blood | + + + + + + + | Performing | Address | City/State/Zipcode | Phone Number | | Organization | | | | + + + + + | [facility] | [address] | [place], [place] | | | [facility] | [address] | [address] | | | TESTS | | | | + + + + + CAPILLARY BLOOD GLUCOSE (NO CHG), POC (03/16/2017 3:41 AM PDT) + +---------+ + + + | Component | Value | Ref Range | Performed | Pathologist | | | | | At | Signature | + +---------+ + + + | BLOOD | 217 (H) | 60 - 99 mg/dL | [facility] - | | | GLUCOSE, | | | [facility] | | | POC | | | [facility] | | | | | | OF CARE | | | | | | TESTS | | + +---------+ + + + + + | Specimen | + + | | + + + + + + + | Performing | Address | City/State/Zipcode | Phone Number | | Organization | | | | + + + + + | [facility] | [address] | [place], [place] | | | JULIANN SILVA OF [place] | [address] | [address] | | | TESTS | | | | + + + + + BLOOD GASES, VENOUS - LAB (03/16/2017 3:36 AM PDT) + + + + + + | Component | Value | Ref Range | Performed | Pathologist | | | | | At | Signature | + + + + + + | PH VENOUS | 7.18 (L) | 7.35 - 7.45 | [facility] | | | | | | LABORATORY | | | | | | SERVICES, | | | | | | CORE | | + + + + + + | PCO2 VENOUS | 60 (H) | 35 - 50 mmHg | [facility] | | | | | | LABORATORY | | | | | | SERVICES, | | | | | | CORE | | + + + + + + | PO2 VENOUS | 47 | 30 - 55 mmHg | [facility] | | | | | | LABORATORY | | | | | | SERVICES, | | | | | | CORE | | + + + + + + | HCO3 VENOUS | 21 (L) | 22 - 28 mmol/L | [facility] | | | | | | LABORATORY | | | | | | SERVICES, | | | | | | CORE | | + + + + + + | BASE EXCESS | -7.4 | mmol/L | [facility] | | | VENOUS | | | LABORATORY | | | | | | SERVICES, | | | | | | CORE | | + + + + + + | O2 SAT, | 75.3 | No range has | [facility] | | | VENOUS | | been | LABORATORY | | | | | established % | SERVICES, | | | | | | CORE | | + + + + + + | TOTAL CO2 | 23 | 23 - 29 mmol/L | [facility] | | | VENOUS | | | LABORATORY | | | | | | SERVICES, | | | | | | CORE | | + + + + + + + + | Specimen | + + | Blood | + + + + + + + | Performing | Address | City/State/Zipcode | Phone Number | | Organization | | | | + + + + + | [facility] | [address] | [place] [address] | | | SERVICES, CORE | [address] | | | + + + + + THROMBELASTOGRAPH, POC (03/16/2017 3:36 AM PDT) + + + + + + | Component | Value | Ref Range | Performed | Pathologist | | | | | At | Signature | + + + + + + | R - | 7.3 | 5 - 10 Minutes | [facility] - | | | CITRATED | | | [facility] | | | | | | JULIANN SIL[facility] | | | | | | OF CARE | | | | | | TESTS | | + + + + + + | K - | 1.4 | 1 - 3 Minutes | [facility] - | | | CITRATED | | | [facility] | | | | | | [facility]UL[facility] | | | | | | OF CARE | | | | | | TESTS | | + + + + + + | ANGLE - | 73.5 (A) | 53 - 72 Degrees | [facility] - | | | CITRATED | | | [facility] | | | | | | [facility]UL[facility] | | | | | | OF CARE | | | | | | TESTS | | + + + + + + | MAXIMUM | 67.6 | 55 - 70 mm | [facility] - | | | AMPLITUDE - | | | [facility] | | | CITRATED | | | [facility]UL[facility]IL[facility] | | | | | | OF CARE | | | | | | TESTS | | + + + + + + | LY 30 | 0.0 | 0 - 8 % | [facility] - | | | | | | [facility] | | | | | | [facility] | | | | | | OF CARE | | | | | | TESTS | | + + + + + + | CLOT INDEX | 0.7 | -3 - 3 | [facility] - | | | | | | [facility] | | | | | | [facility] | | | | | | OF CARE | | | | | | TESTS | | + + + + + + + + | Specimen | + + | Blood | + + + + + | Impressions | Performed At | + + + | A standard citrated kaolin TEG was performed R time is normal. | [facility] - | | Elevated ALPHA angle corresponds to increased rate of fibrin | [facility] | | danette suggesting HYPERcoagulability MA is normal. | POINT OF CARE | | Normal LY30 corresponds to normal fibrinolysis Overall, TEG | TESTS | | suggests hypercoagulability. See Media Tab in Chart Review for TEG | | | tracing Electronically signed on 07/27/2017 at 3:40 PM Rocio | | | Y MD Nilesh | | + + + + + + + + | Performing | Address | City/State/Zipcode | Phone Number | | Organization | | | | + + + + + | [facility] | [address] | [place], [place] | | | [place] | [address] | [address] | | | TESTS | | | | + + + + + CBC AND AUTO DIFF (03/16/2017 3:35 AM PDT) + + + + + + | Component | Value | Ref Range | Performed | Pathologist | | | | | At | Signature | + + + + + + | WHITE CELL | 19.83 (H) | 3.50 - 10.80 | [facility] | | | COUNT | | K/cu mm | LABORATORY | | | | | | SERVICES, | | | | | | CORE | | + + + + + + | RED CELL | 3.67 (L) | 4.50 - 6.00 | [facility] | | | COUNT | | M/cu mm | LABORATORY | | | | | | SERVICES, | | | | | | CORE | | + + + + + + | HEMOGLOBIN | 12.2 (L) | 13.5 - 17.5 | [facility] | | | | | g/dL | LABORATORY | | | | | | SERVICES, | | | | | | CORE | | + + + + + + | HEMATOCRIT | 34.4 (L) | 41.0 - 53.0 % | [facility] | | | | | | LABORATORY | | | | | | SERVICES, | | | | | | CORE | | + + + + + + | MCV | 93.7 | 80.0 - 96.0 fL | [facility] | | | | | | LABORATORY | | | | | | SERVICES, | | | | | | CORE | | + + + + + + | MCHC | 35.5 | 33.0 - 35.5 | [facility] | | | | | g/dL | LABORATORY | | | | | | SERVICES, | | | | | | CORE | | + + + + + + | RDW SD | 47.5 (H) | 35.1 - 46.3 fL | [facility] | | | | | | LABORATORY | | | | | | SERVICES, | | | | | | CORE | | + + + + + + | PLATELET | 210 | 150 - 400 K/cu | [facility] | | | COUNT | | mm | LABORATORY | | | | | | SERVICES, | | | | | | CORE | | + + + + + + | MPV | 10.5 | 9.7 - 12.3 fL | [facility] | | | | | | LABORATORY | | | | | | SERVICES, | | | | | | CORE | | + + + + + + | NRBC% | 0.0 | 0.0 - 0.3 % | [facility] | | | | | | LABORATORY | | | | | | SERVICES, | | | | | | CORE | | + + + + + + | NRBC# | 0.00 | 0.00 - 0.02 | [facility] | | | | | K/cu mm | LABORATORY | | | | | | SERVICES, | | | | | | CORE | | + + + + + + | NEUTROPHIL | 82.0 (H) | 50.0 - 70.0 % | [facility] | | | % | | | LABORATORY | | | | | | SERVICES, | | | | | | CORE | | + + + + + + | LYMPHOCYTE | 7.4 (L) | 18.0 - 42.0 % | [facility] | | | % | | | LABORATORY | | | | | | SERVICES, | | | | | | CORE | | + + + + + + | MONOCYTE % | 9.4 (H) | 3.5 - 9.0 % | [facility] | | | | | | LABORATORY | | | | | | SERVICES, | | | | | | CORE | | + + + + + + | EOS % | 0.0 (L) | 1.0 - 3.0 % | [facility] | | | | | | LABORATORY | | | | | | SERVICES, | | | | | | CORE | | + + + + + + | BASO % | 0.2 | 0.0 - 2.0 % | [facility] | | | | | | LABORATORY | | | | | | SERVICES, | | | | | | CORE | | + + + + + + | IG% | 1.0 (H)Comment: Immature | 0.0 - 0.6 % | [facility] | | | | Granulocytes (IG) | | LABORATORY | | | | include metamyelocytes, | | SERVICES, | | | | myelocytes and | | CORE | | | | promyelocytes. Bands | | | | | | are not included in the | | | | | | IG count. Bands are | | | | | | included in the | | | | | | neutrophil count. | | | | + + + + + + | NEUTROPHIL | 16.27 (H) | 1.80 - 7.70 | [facility] | | | # | | K/cu mm | LABORATORY | | | | | | SERVICES, | | | | | | CORE | | + + + + + + | LYMPHOCYTE | 1.47 | 1.00 - 4.80 | [facility] | | | # | | K/cu mm | LABORATORY | | | | | | SERVICES, | | | | | | CORE | | + + + + + + | MONOCYTE # | 1.87 (H) | 0.10 - 0.90 | [facility] | | | | | K/cu mm | LABORATORY | | | | | | SERVICES, | | | | | | CORE | | + + + + + + | EOS # | 0.00 | 0.00 - 0.50 | [facility] | | | | | K/cu mm | LABORATORY | | | | | | SERVICES, | | | | | | CORE | | + + + + + + | BASO # | 0.03 | 0.00 - 0.10 | [facility] | | | | | K/cu mm | LABORATORY | | | | | | SERVICES, | | | | | | CORE | | + + + + + + | IG# | 0.19 (H) | 0.00 - 0.03 | [facility] | | | | | K/cu mm | LABORATORY | | | | | | SERVICES, | | | | | | CORE | | + + + + + + + + | Specimen | + + | Blood | + + + + + | Narrative | Performed At | + + + | Q 6 hrs x 24 hrs Immature Granulocytes (IG) include | [facility] | | metamyelocytes, myelocytes and promyelocytes. Bands are not | LABORATORY | | included in the IG count. Bands are included in the neutrophil count. | [facility] | + + + + + + + + | Performing | Address | City/State/Zipcode | Phone Number | | Organization | | | | + + + + + | [facility] | [address] | [place] [address] | | | [facility]TO[facility] | [address] | | | + + + + + LDH TOTAL, PLASMA (03/16/2017 3:35 AM PDT) + + + + + + | Component | Value | Ref Range | Performed | Pathologist | | | | | At | Signature | + + + + + + | LD TOTAL, | 1,446 (H) | <=250 U/L | [facility] | | | PLASMA | | | LABORATORY | | | | | | SERVICES, | | | | | | CORE | | + + + + + + | LD CMNT | No Hemo | | [facility] | | | | | | LABORATORY | | | | | | SERVICES, | | | | | | CORE | | + + + + + + + + | Specimen | + + | Blood | + + + + + + + | Performing | Address | City/State/Zipcode | Phone Number | | Organization | | | | + + + + + | [facility] | [address] | [place] [address] | | | SERVICES, CORE | [address] | | | + + + + + RENAL FUNCTION SET (NA,K,CL,CO2,BUN,CREAT,GLUC,CA,PHOS,ALB ) (03/16/2017 3:35 AM PDT) + + + + + + | Component | Value | Ref Range | Performed | Pathologist | | | | | At | Signature | + + + + + + | GLUCOSE, | 234 (H) | 60 - 99 mg/dL | [facility] | | | PLASMA | | | LABORATORY | | | (LAB) | | | SERVICES, | | | | | | CORE | | + + + + + + | BUN, PLASMA | 24 (H) | 6 - 20 mg/dL | [facility] | | | (LAB) | | | LABORATORY | | | | | | SERVICES, | | | | | | CORE | | + + + + + + | CREATININE | 1.62 (H) | 0.70 - 1.30 | [facility] | | | PLASMA | | mg/dL | LABORATORY | | | (LAB) | | | SERVICES, | | | | | | CORE | | + + + + + + | EGFR | 53 (L) | >60 mL/min | [facility] | | | - | | | LABORATORY | | | SLOVENIAN | | | SERVICES, | | | | | | CORE | | + + + + + + | EGFR NON | 43 (L) | >60 mL/min | [facility] | | | -SOREN | | | LABORATORY | | | RICAN | | | SERVICES, | | | | | | CORE | | + + + + + + | SODIUM, | 143 | 136 - 145 | [facility] | | | PLASMA | | mmol/L | LABORATORY | | | (LAB) | | | SERVICES, | | | | | | CORE | | + + + + + + | POTASSIUM, | 4.0 | 3.4 - 5.0 | [facility] | | | PLASMA | | mmol/L | LABORATORY | | | (LAB) | | | SERVICES, | | | | | | CORE | | + + + + + + | CHLORIDE, | 112 (H) | 97 - 108 mmol/L | [facility] | | | PLASMA | | | LABORATORY | | | (LAB) | | | SERVICES, | | | | | | CORE | | + + + + + + | TOTAL CO2, | 19 (L) | 21 - 32 mmol/L | [facility] | | | PLASMA | | | LABORATORY | | | (LAB) | | | SERVICES, | | | | | | CORE | | + + + + + + | CALCIUM, | 7.7 (L) | 8.6 - 10.2 | [facility] | | | PLASMA | | mg/dL | LABORATORY | | | (LAB) | | | SERVICES, | | | | | | CORE | | + + + + + + | CALCIUM(ALB | 9.0 | 8.6 - 10.2 | [facility] | | | CORRECTED) | | mg/dL | LABORATORY | | | | | | SERVICES, | | | | | | CORE | | + + + + + + | ALBUMIN, | 2.4 (L) | 3.5 - 4.7 g/dL | [facility] | | | PLASMA | | | LABORATORY | | | (LAB) | | | SERVICES, | | | | | | CORE | | + + + + + + | PHOSPHORUS, | 3.2 | 2.4 - 4.7 mg/dL | [facility] | | | PLASMA | | | LABORATORY | | | (LAB) | | | SERVICES, | | | | | | CORE | | + + + + + + | POTASSIUM | No Hemo | | [facility] | | | CMNT | | | LABORATORY | | | | | | SERVICES, | | | | | | CORE | | + + + + + + | ANION GAP | 12 | mmol/L | [facility] | | | | | | LABORATORY | | | | | | SERVICES, | | | | | | CORE | | + + + + + + | ANION | 16 (H) | 4 - 11 mmol/L | [facility] | | | GAP(ALB | | | LABORATORY | | | CORRECTED) | | | SERVICES, | | | | | | CORE | | + + + + + + + + | Specimen | + + | Blood | + + + + + | Narrative | Performed At | + + + | GFR is estimated using the MDRD equation recommended by the | [facility] | | National Kidney Disease Education Program. Estimated GFR | LABORATORY | | Interpretive Information: <60 mL/min/1.73 sq | SERVICES, CORE | | m Chronic Kidney Disease <15 mL/min/1.73 | | | sq m Kidney Failure Estimated GFR greater | | | that 60 mL/min/1.73 sq m is of limited clinical value. The MDRD | | | equation is not valid in the following situations: - Patients under | | | 18 years of age - Severe malnutrition or obesity - Vegetarian diet | | | - Rapidly changing kidney function | | + + + + + + + + | Performing | Address | City/State/Zipcode | Phone Number | | Organization | | | | + + + + + | [facility] | [address] | [place] [address] | | | SERVICES, CORE | [address] | | | + + + + + BLOOD GASES, ARTERIAL - LAB (03/16/2017 3:35 AM PDT) + + + + + + | Component | Value | Ref Range | Performed | Pathologist | | | | | At | Signature | + + + + + + | PAT TEMP | 36.1 | Degree C | [facility] | | | ARTERIAL | | | LABORATORY | | | | | | SERVICES, | | | | | | CORE | | + + + + + + | FIO2 | 0.25 | | [facility] | | | ARTERIAL | | | LABORATORY | | | | | | SERVICES, | | | | | | CORE | | + + + + + + | PH ARTERIAL | 7.26 (L) | 7.37 - 7.44 | [facility] | | | | | | LABORATORY | | | | | | SERVICES, | | | | | | CORE | | + + + + + + | PCO2 | 41 | 32 - 43 mmHg | [facility] | | | ARTERIAL | | | LABORATORY | | | | | | SERVICES, | | | | | | CORE | | + + + + + + | PO2 | 506 (H) | 72 - 104 mmHg | [facility] | | | ARTERIAL | | | LABORATORY | | | | | | SERVICES, | | | | | | CORE | | + + + + + + | HCO3 | 18 (L) | 21 - 28 mmol/L | [facility] | | | ARTERIAL | | | LABORATORY | | | | | | SERVICES, | | | | | | CORE | | + + + + + + | TOTAL CO2 | 19 (L) | 22 - 28 mmol/L | [facility] | | | ARTERIAL | | | LABORATORY | | | | | | SERVICES, | | | | | | CORE | | + + + + + + | BASE EXCESS | -8.3 | mmol/L | [facility] | | | ARTERIAL | | | LABORATORY | | | | | | SERVICES, | | | | | | CORE | | + + + + + + | O2 SAT, | 99.5 (H) | 92.0 - 98.0 % | [facility] | | | ARTERIAL | | | LABORATORY | | | | | | SERVICES, | | | | | | CORE | | + + + + + + | PAO2/FIO2 | 2,024 | >300 mmHg | [facility] | | | RATIO | | | LABORATORY | | | | | | SERVICES, | | | | | | CORE | | + + + + + + + + | Specimen | + + | Blood | + + + + + + + | Performing | Address | City/State/Zipcode | Phone Number | | Organization | | | | + + + + + | [facility] | [address] | [place] [address] | | | SERVICES, CORE | [address] | | | + + + + + HEPARIN, EITHER STANDARD / LMW, BLOOD (03/16/2017 3:35 AM PDT) + +-------+ + + + | Component | Value | Ref Range | Performed | Pathologist | | | | | At | Signature | + +-------+ + + + | HEPARIN, | 0.69 | U/mL | [facility] | | | STD LMW | | | LABORATORY | | | | | | SERVICES, | | | | | | CORE | | + +-------+ + + + + + | Specimen | + + | Blood | + + + + + | Narrative | Performed At | + + + | Must order with concurrent CBC Venous Disease Heparin Protocol | [facility] | | (for [facility]) Heparin level 6 hrs after every heparin rate change. | LABORATORY | | Heparin, Either STD/LMW - Therapeutic Ranges: Heparin, | SERVICES, CORE | | Unfractionated: 0.35 - 0.70 U/mL Enoxaparin, LMWH: | | | 0.70 - 1.20 U/mL Dalteparin, LMWH: 0.70 - 1.20 U/mL | | | Tinzaparin, LMWH: Therapeutic range not established. | | | Preliminary | | | studies suggest range | | | similar to | | | dalteparin. Clinical | | | correlation | | | required. Heparin levels may be unreliable for: | | | Total bilirubin | | | >28.8 mg/dL | | | Triglycerides | | | >690 mg/dL or | | | Moderate to Gross Hemolysis | | + + + + + + + + | Performing | Address | City/State/Zipcode | Phone Number | | Organization | | | | + + + + + | [facility] | [address] | [place] [address] | | | SERVICES, CORE | [address] | | | + + + + + COAGULOPATHY PANEL (INR,APTT,FIBRINOGEN) (03/16/2017 3:35 AM PDT) + + + + + + | Component | Value | Ref Range | Performed | Pathologist | | | | | At | Signature | + + + + + + | INR | 1.34 (H) | 0.90 - 1.20 INR | [facility] | | | | | | LABORATORY | | | | | | SERVICES, | | | | | | CORE | | + + + + + + | APTT | 124.3 (H) | 26.0 - 36.0 | [facility] | | | | | seconds | LABORATORY | | | | | | SERVICES, | | | | | | CORE | | + + + + + + | FIBRINOGEN | 424 | 200 - 450 mg/dL | [facility] | | | LEVEL | | | LABORATORY | | | | | | SERVICES, | | | | | | CORE | | + + + + + + + + | Specimen | + + | Blood | + + + + + | Narrative | Performed At | + + + | Must order with concurrent CBC Venous Disease Heparin Protocol | [facility] | | (for [facility]) Heparin level 6 hrs after every heparin rate change. | LABORATORY | | INR Therapeutic ranges for full anticoagulation: INR for | SERVICES, CORE | | Venous Thromboembolism (2.0 - 3.0) INR | | | INR for most patients with mech. valves (2.5 - 3.5) INR | | | APTT Therapeutic Range: (75 - | | | 120) sec Heparin levels of 0.35 - 0.7 U/mL | | + + + + + + + + | Performing | Address | City/State/Zipcode | Phone Number | | Organization | | | | + + + + + | [facility] | [address] | [place] [address] | | | SERVICES, CORE | [address] | | | + + + + + MAGNESIUM, PLASMA (03/16/2017 3:35 AM PDT) + +-------+ + + + | Component | Value | Ref Range | Performed | Pathologist | | | | | At | Signature | + +-------+ + + + | MAGNESIUM,P | 2.1 | 1.8 - 2.5 mg/dL | [facility] | | | LASMA | | | LABORATORY | | | | | | SERVICES, | | | | | | CORE | | + +-------+ + + + + + | Specimen | + + | Blood | + + + + + + + | Performing | Address | City/State/Zipcode | Phone Number | | Organization | | | | + + + + + | [facility] | [address] | [place] [address] | | | SERVICES, CORE | [address] | | | + + + + + CAPILLARY BLOOD GLUCOSE (NO CHG), POC (03/16/2017 2:39 AM PDT) + +---------+ + + + | Component | Value | Ref Range | Performed | Pathologist | | | | | At | Signature | + +---------+ + + + | BLOOD | 208 (H) | 60 - 99 mg/dL | [facility] - | | | GLUCOSE, | | | [facility] | | | POC | | | [facility] | | | | | | OF CARE | | | | | | TESTS | | + +---------+ + + + + + | Specimen | + + | | + + + + + + + | Performing | Address | City/State/Zipcode | Phone Number | | Organization | | | | + + + + + | [facility] | [address] | [place], [place] | | | [facility] [place] | [address] | [address] | | | TESTS | | | | + + + + + PHOSPHORUS, PLASMA (03/16/2017 1:31 AM PDT) + +-------+ + + + | Component | Value | Ref Range | Performed | Pathologist | | | | | At | Signature | + +-------+ + + + | PHOSPHORUS, | 3.5 | 2.4 - 4.7 mg/dL | [facility] | | | PLASMA | | | LABORATORY | | | (LAB) | | | SERVICES, | | | | | | CORE | | + +-------+ + + + + + | Specimen | + + | Blood | + + + + + + + | Performing | Address | City/State/Zipcode | Phone Number | | Organization | | | | + + + + + | [facility] | [address] | [place] [address] | | | ARASH, ИРИНА | [address] | | | + + + + + CAPILLARY BLOOD GLUCOSE (NO CHG), POC (03/16/2017 1:25 AM PDT) + +---------+ + + + | Component | Value | Ref Range | Performed | Pathologist | | | | | At | Signature | + +---------+ + + + | BLOOD | 228 (H) | 60 - 99 mg/dL | [facility] - | | | GLUCOSE, | | | [facility] | | | POC | | | [facility] | | | | | | OF CARE | | | | | | TESTS | | + +---------+ + + + + + | Specimen | + + | | + + + + + + + | Performing | Address | City/State/Zipcode | Phone Number | | Organization | | | | + + + + + | [facility] | [address] | [place], [place] | | | [facility] S[facility] | [address] | [address] | | | TESTS | | | | + + + + + MAGNESIUM, PLASMA (03/16/2017 12:30 AM PDT) + +-------+ + + + | Component | Value | Ref Range | Performed | Pathologist | | | | | At | Signature | + +-------+ + + + | MAGNESIUM,P | 2.2 | 1.8 - 2.5 mg/dL | [facility] | | | LASMA | | | LABORATORY | | | | | | SERVICES, | | | | | | CORE | | + +-------+ + + + + + | Specimen | + + | Blood | + + + + + + + | Performing | Address | City/State/Zipcode | Phone Number | | Organization | | | | + + + + + | [facility] | [address] | [place] [address] | | | SERVICES, CORE | [address] | | | + + + + + COMPLETE METABOLIC SET (NA,K,CL,CO2,BUN,CREAT,GLUC,CA,AST,ALT,BILI TOTAL,ALK PHOS,ALB,PROT TOTAL) (03/16/2017 12:30 AM PDT) + + + + + + | Component | Value | Ref Range | Performed | Pathologist | | | | | At | Signature | + + + + + + | GLUCOSE, | 268 (H) | 60 - 99 mg/dL | [facility] | | | PLASMA | | | LABORATORY | | | (LAB) | | | SERVICES, | | | | | | CORE | | + + + + + + | BUN, PLASMA | 24 (H) | 6 - 20 mg/dL | [facility] | | | (LAB) | | | LABORATORY | | | | | | SERVICES, | | | | | | CORE | | + + + + + + | CREATININE | 1.74 (H) | 0.70 - 1.30 | [facility] | | | PLASMA | | mg/dL | LABORATORY | | | (LAB) | | | SERVICES, | | | | | | CORE | | + + + + + + | EGFR | 48 (L) | >60 mL/min | [facility] | | | - | | | LABORATORY | | | SLOVENIAN | | | SERVICES, | | | | | | CORE | | + + + + + + | EGFR NON | 40 (L) | >60 mL/min | [facility] | | | -SOREN | | | LABORATORY | | | RICAN | | | SERVICES, | | | | | | CORE | | + + + + + + | SODIUM, | 143 | 136 - 145 | [facility] | | | PLASMA | | mmol/L | LABORATORY | | | (LAB) | | | SERVICES, | | | | | | CORE | | + + + + + + | POTASSIUM, | 3.8 | 3.4 - 5.0 | [facility] | | | PLASMA | | mmol/L | LABORATORY | | | (LAB) | | | SERVICES, | | | | | | CORE | | + + + + + + | CHLORIDE, | 112 (H) | 97 - 108 mmol/L | [facility] | | | PLASMA | | | LABORATORY | | | (LAB) | | | SERVICES, | | | | | | CORE | | + + + + + + | TOTAL CO2, | 17 (L) | 21 - 32 mmol/L | [facility] | | | PLASMA | | | LABORATORY | | | (LAB) | | | SERVICES, | | | | | | CORE | | + + + + + + | CALCIUM, | 7.5 (L) | 8.6 - 10.2 | [facility] | | | PLASMA | | mg/dL | LABORATORY | | | (LAB) | | | SERVICES, | | | | | | CORE | | + + + + + + | CALCIUM(ALB | 8.8 | 8.6 - 10.2 | [facility] | | | CORRECTED) | | mg/dL | LABORATORY | | | | | | SERVICES, | | | | | | CORE | | + + + + + + | BILIRUBIN | 0.4 | 0.3 - 1.2 mg/dL | [facility] | | | TOTAL | | | LABORATORY | | | | | | SERVICES, | | | | | | CORE | | + + + + + + | TOTAL | 5.3 (L) | 6.4 - 8.2 g/dL | [facility] | | | PROTEIN, | | | LABORATORY | | | PLASMA | | | SERVICES, | | | (LAB) | | | CORE | | + + + + + + | ALBUMIN, | 2.4 (L) | 3.5 - 4.7 g/dL | [facility] | | | PLASMA | | | LABORATORY | | | (LAB) | | | SERVICES, | | | | | | CORE | | + + + + + + | ALK PHOS | 61 | 56 - 119 U/L | [facility] | | | | | | LABORATORY | | | | | | SERVICES, | | | | | | CORE | | + + + + + + | AST(SGOT) | 471 (H) | <=41 U/L | [facility] | | | | | | LABORATORY | | | | | | SERVICES, | | | | | | CORE | | + + + + + + | ALT (SGPT) | 116 (H) | <=60 U/L | [facility] | | | | | | LABORATORY | | | | | | SERVICES, | | | | | | CORE | | + + + + + + | ANION GAP | 14 | mmol/L | [facility] | | | | | | LABORATORY | | | | | | SERVICES, | | | | | | CORE | | + + + + + + | ANION | 18 (H) | 4 - 11 mmol/L | [facility] | | | GAP(ALB | | | LABORATORY | | | CORRECTED) | | | SERVICES, | | | | | | CORE | | + + + + + + | POTASSIUM | No Hemo | | [facility] | | | CMNT | | | LABORATORY | | | | | | SERVICES, | | | | | | CORE | | + + + + + + | BILI T CMNT | No Hemo | | [facility] | | | | | | LABORATORY | | | | | | SERVICES, | | | | | | CORE | | + + + + + + | AST CMNT | No Hemo | | [facility] | | | | | | LABORATORY | | | | | | SERVICES, | | | | | | CORE | | + + + + + + + + | Specimen | + + | Blood | + + + + + | Narrative | Performed At | + + + | GFR is estimated using the MDRD equation recommended by the | [facility] | | National Kidney Disease Education Program. Estimated GFR | LABORATORY | | Interpretive Information: <60 mL/min/1.73 sq | SERVICES, CORE | | m Chronic Kidney Disease <15 mL/min/1.73 | | | sq m Kidney Failure Estimated GFR greater | | | that 60 mL/min/1.73 sq m is of limited clinical value. The MDRD | | | equation is not valid in the following situations: - Patients under | | | 18 years of age - Severe malnutrition or obesity - Vegetarian diet | | | - Rapidly changing kidney function | | + + + + + + + + | Performing | Address | City/State/Zipcode | Phone Number | | Organization | | | | + + + + + | [facility] | [address] | [place] [address] | | | ARASH, CORE | [address] | | | + + + + + QP-RV-HXW-HB,POC RT (03/16/2017 12:22 AM PDT) + + + + + + | Component | Value | Ref Range | Performed | Pathologist | | | | | At | Signature | + + + + + + | HCO3 | 16.6 (L) | 21 - 28 mmol/L | [facility] | | | ARTERIAL, | | | [facility] | | | POC | | | [facility] | | | | | | OF CARE | | | | | | TESTS | | + + + + + + | PCO2 | 42 | 32 - 43 mmHg | [facility] - | | | ART[facility], | | | [facility] | | | POC | | | [facility] | | | | | | OF CARE | | | | | | TESTS | | + + + + + + | PH | 7.21 (L) | 7.37 - 7.44 | [facility] - | | | ART[facility], | | | [facility] | | | POC | | | [facility] | | | | | | OF CARE | | | | | | TESTS | | + + + + + + | O2 SAT | 99.7 (H) | 92.0 - 98.0 % | [facility] - | | | ART[facility], | | | [facility] | | | POC | | | [facility] | | | | | | OF CARE | | | | | | TESTS | | + + + + + + | PO2 | 225 (H) | 72 - 104 mmHg | [facility] - | | | ARTERIAL, | | | [facility] | | | POC | | | [facility] | | | | | | OF CARE | | | | | | TESTS | | + + + + + + | BASE EXCESS | -11.3 | | [facility] - | | | ART, POC | | | [facility] | | | | | | [facility] | | | | | | OF CARE | | | | | | TESTS | | + + + + + + | PAO2/FIO2 | 225.0 (L) | >300 mmHg | [facility] - | | | RATIO, POC | | | [facility] | | | | | | [facility] | | | | | | OF CARE | | | | | | TESTS | | + + + + + + | SODIUM, WHL | 141 | 134 - 143 | [facility] - | | | BLD, POC | | mmol/L | [facility] | | | | | | [facility] | | | | | | OF CARE | | | | | | TESTS | | + + + + + + | POTASSIUM,W | 3.5 | 3.4 - 5.0 | [facility] - | | | HL BLD, POC | | mmol/L | [facility] | | | | | | [facility] | | | | | | OF CARE | | | | | | TESTS | | + + + + + + | SATISH | 1.15 | 1.14 - 1.32 | [facility] - | | | IONIZED | | mmol/L | [facility] | | | CA,WHOLE | | | [facility] | | | BLD,POC | | | OF CARE | | | | | | TESTS | | + + + + + + | HEMOGLOBIN, | 12.4 (L) | 13.5 - 17.5 | [facility] - | | | POC | | g/dL | [facility] | | | | | | [facility] | | | | | | OF CARE | | | | | | TESTS | | + + + + + + | LACTATE POC | 7.0 (AA) | 0.5 - 1.6 | [facility] - | | | | | mmol/L | [facility] | | | | | | [facility] | | | | | | OF CARE | | | | | | TESTS | | + + + + + + | FIO2 ART, | 100.0 | | [facility] - | | | POC | | | [facility] | | | | | | [facility] | | | | | | OF CARE | | | | | | TESTS | | + + + + + + | PAT TEMP | 36.0 | | [facility] - | | | ART, POC | | | [facility] | | | | | | [facility] | | | | | | OF CARE | | | | | | TESTS | | + + + + + + + + | Specimen | + + | Blood | + + + + + + + | Performing | Address | City/State/Zipcode | Phone Number | | Organization | | | | + + + + + | [facility] | [address] | [place], [place] | | | [facility] | [address] | [address] | | | TESTS | | | | + + + + + CAPILLARY BLOOD GLUCOSE (NO CHG), POC (03/16/2017 12:18 AM PDT) + +---------+ + + + | Component | Value | Ref Range | Performed | Pathologist | | | | | At | Signature | + +---------+ + + + | BLOOD | 234 (H) | 60 - 99 mg/dL | [facility] - | | | GLUCOSE, | | | [facility] | | | POC | | | [facility] | | | | | | OF CARE | | | | | | TESTS | | + +---------+ + + + + + | Specimen | + + | | + + + + + + + | Performing | Address | City/State/Zipcode | Phone Number | | Organization | | | | + + + + + | [facility] | [address] | [place], [place] | | | [facility] | [address] | [phone] | | | TESTS | | | | + + + + + CAPILLARY BLOOD GLUCOSE (NO CHG), POC (03/15/2017 11:33 PM PDT) + +---------+ + + + | Component | Value | Ref Range | Performed | Pathologist | | | | | At | Signature | + +---------+ + + + | BLOOD | 250 (H) | 60 - 99 mg/dL | [facility] - | | | GLUCOSE, | | | [facility] | | | POC | | | [place], POINT | | | | | | OF CARE | | | | | | TESTS | | + +---------+ + + + + + | Specimen | + + | | + + + + + + + | Performing | Address | City/State/Zipcode | Phone Number | | Organization | | | | + + + + + | [facility] | [address] | [place], [place] | | | [facility] | [address] | [phone] | | | TESTS | | | | + + + + + CAPILLARY BLOOD GLUCOSE (NO CHG), POC (03/15/2017 10:28 PM PDT) + +---------+ + + + | Component | Value | Ref Range | Performed | Pathologist | | | | | At | Signature | + +---------+ + + + | BLOOD | 226 (H) | 60 - 99 mg/dL | [facility] - | | | GLUCOSE, | | | [facility] | | | POC | | | [facility] | | | | | | OF CARE | | | | | | TESTS | | + +---------+ + + + + + | Specimen | + + | | + + + + + + + | Performing | Address | City/State/Zipcode | Phone Number | | Organization | | | | + + + + + | [facility] | [address] | [place], [place] | | | [facility] | [address] | [address] | | | TESTS | | | | + + + + + X-RAY PORTABLE CHEST 1 VIEW (03/15/2017 9:44 PM PDT) + + | Specimen | + + | | + + + + + | Narrative | Performed At | + + + | EXAM: AL CHEST 1 VIEW HISTORY: Evaluate new endotracheal tube. | [facility] | | COMPARISON: Earlier today FINDINGS: Endotracheal tube tip | RADIOLOGY VOICE | | is 2 cm above the jefferson. Other support equipment is unchanged. | RECOGNITION | | Asymmetric right upper lobe groundglass/consolidative opacity is | | | unchanged. There is minimal bibasilar atelectasis. Cardiomediastinal | | | silhouette is unchanged. There is no pneumothorax. IMPRESSION: | | | Endotracheal tube tip 2 cm above the jefferson. No other change since | | | earlier today. Asymmetric right upper lobe | | | groundglass/consolidative opacity, consider mitral insufficiency or | | | concurrent pneumonia/aspiration. I have personally reviewed the | | | images and, if necessary, edited the report. I agree with the | | | report as now presented. | | + + + + + | Procedure Note | + + | Service Account, [employer] In Interface - 03/16/2017 8:27 AM PDT EXAM: AL CHEST 1 | | VIEW HISTORY: Evaluate new endotracheal tube.COMPARISON: Earlier todayFINDINGS: | | Endotracheal tube tip is 2 cm above the jefferson. Other support equipment is unchanged. | | Asymmetric right upper lobe groundglass/consolidative opacity is unchanged. There is | | minimal bibasilar atelectasis. Cardiomediastinal silhouette is unchanged. There is no | | pneumothorax.IMPRESSION: Endotracheal tube tip 2 cm above the jefferson. No other change | | since earlier today.Asymmetric right upper lobe groundglass/consolidative opacity, | | consider mitral insufficiency or concurrent pneumonia/aspiration.I have personally | | reviewed the images and, if necessary, edited the report. I agree with the report as | | now presented. | | | |IMPRESSION: | | | |Endotracheal tube tip 2 cm above the jefferson. No other change since earlier today. | | | |Asymmetric right upper lobe groundglass/consolidative opacity, consider mitral insufficienc y or concurrent pneumonia/aspiration. | | | | | |I have personally reviewed the images and, if necessary, edited the report. I agree with t he report as now presented. | + + + +---------+ + + | Performing | Address | City/State/Zipcode | Phone Number | | Organization | | | | + +---------+ + + | [facility] | | | | | VOICE RECOGNITION | | | | + +---------+ + + BG-LACTATE,POC RT (03/15/2017 9:26 PM PDT) + + + + + + | Component | Value | Ref Range | Performed | Pathologist | | | | | At | Signature | + + + + + + | HCO3 | 18.0 (L) | 21 - 28 mmol/L | [facility] - | | | ARTERIAL, | | | [facility] | | | POC | | | [facility] POINT | | | | | | OF CARE | | | | | | TESTS | | + + + + + + | PCO2 | 41 | 32 - 43 mmHg | [facility] - | | | ARTERIAL, | | | [facility] | | | POC | | | [facility] | | | | | | OF CARE | | | | | | TESTS | | + + + + + + | PH | 7.25 (L) | 7.37 - 7.44 | [facility] - | | | ARTERIAL, | | | [facility] | | | POC | | | [facility] | | | | | | OF CARE | | | | | | TESTS | | + + + + + + | O2 SAT | 97.9 | 92.0 - 98.0 % | [facility] - | | | ARTERIAL, | | | [facility] | | | POC | | | [facility] | | | | | | OF CARE | | | | | | TESTS | | + + + + + + | PO2 | 107 (H) | 72 - 104 mmHg | [facility] - | | | ARTERIAL, | | | [facility] | | | POC | | | [facility] | | | | | | OF CARE | | | | | | TESTS | | + + + + + + | BASE EXCESS | -9.3 | | [facility] - | | | ART, POC | | | [facility] | | | | | | [facility] | | | | | | OF CARE | | | | | | TESTS | | + + + + + + | PAO2/FIO2 | 107.0 (L) | >300 mmHg | [facility] - | | | RATIO, POC | | | [facility] | | | | | | [facility] | | | | | | OF CARE | | | | | | TESTS | | + + + + + + | LACTATE POC | 7.2 (AA) | 0.5 - 1.6 | [facility] - | | | | | mmol/L | [facility] | | | | | | [facility] | | | | | | OF CARE | | | | | | TESTS | | + + + + + + | FIO2 ART, | 100.0 | | [facility] - | | | POC | | | [facility] | | | | | | [facility] | | | | | | OF CARE | | | | | | TESTS | | + + + + + + | PAT TEMP | 37.4 | | [facility] - | | | ART, POC | | | [facility] | | | | | | [facility] | | | | | | OF CARE | | | | | | TESTS | | + + + + + + + + | Specimen | + + | Blood | + + + + + + + | Performing | Address | City/State/Zipcode | Phone Number | | Organization | | | | + + + + + | [facility] | [address] | [place], [place] | | | [facility] | [facility] | [address] | | | TESTS | | | | + + + + + CAPILLARY BLOOD GLUCOSE (NO CHG), POC (03/15/2017 9:25 PM PDT) + +---------+ + + + | Component | Value | Ref Range | Performed | Pathologist | | | | | At | Signature | + +---------+ + + + | BLOOD | 287 (H) | 60 - 99 mg/dL | [facility] - | | | GLUCOSE, | | | [facility] | | | POC | | | [facility] | | | | | | OF CARE | | | | | | TESTS | | + +---------+ + + + + + | Specimen | + + | | + + + + + + + | Performing | Address | City/State/Zipcode | Phone Number | | Organization | | | | + + + + + | [facility] | [address] | [place], [place] | | | [facility] | [address] | [address] | | | TESTS | | | | + + + + + CBC (HEMOGRAM) ONLY (03/15/2017 9:22 PM PDT) + + + + + + | Component | Value | Ref Range | Performed | Pathologist | | | | | At | Signature | + + + + + + | WHITE CELL | 23.01 (H) | 3.50 - 10.80 | [facility] | | | COUNT | | K/cu mm | LABORATORY | | | | | | SERVICES, | | | | | | CORE | | + + + + + + | RED CELL | 3.72 (L) | 4.50 - 6.00 | [facility] | | | COUNT | | M/cu mm | LABORATORY | | | | | | SERVICES, | | | | | | CORE | | + + + + + + | HEMOGLOBIN | 12.2 (L) | 13.5 - 17.5 | [facility] | | | | | g/dL | LABORATORY | | | | | | SERVICES, | | | | | | CORE | | + + + + + + | HEMATOCRIT | 34.8 (L) | 41.0 - 53.0 % | [facility] | | | | | | LABORATORY | | | | | | SERVICES, | | | | | | CORE | | + + + + + + | MCV | 93.5 | 80.0 - 96.0 fL | [facility] | | | | | | LABORATORY | | | | | | SERVICES, | | | | | | CORE | | + + + + + + | MCHC | 35.1 | 33.0 - 35.5 | [facility] | | | | | g/dL | LABORATORY | | | | | | SERVICES, | | | | | | CORE | | + + + + + + | RDW SD | 46.9 (H) | 35.1 - 46.3 fL | [facility] | | | | | | LABORATORY | | | | | | SERVICES, | | | | | | CORE | | + + + + + + | PLATELET | 274 | 150 - 400 K/cu | [facility] | | | COUNT | | mm | LABORATORY | | | | | | SERVICES, | | | | | | CORE | | + + + + + + | MPV | 10.6 | 9.7 - 12.3 fL | [facility] | | | | | | LABORATORY | | | | | | SERVICES, | | | | | | CORE | | + + + + + + | NRBC% | 0.0 | 0.0 - 0.3 % | [facility] | | | | | | LABORATORY | | | | | | SERVICES, | | | | | | CORE | | + + + + + + | NRBC# | 0.00 | 0.00 - 0.02 | [facility] | | | | | K/cu mm | LABORATORY | | | | | | SERVICES, | | | | | | CORE | | + + + + + + + + | Specimen | + + | Blood | + + + + + | Narrative | Performed At | + + + | Q 6 hrs x 24 hrs | [facility] | | | LABORATORY | | | SERVICES, CORE | + + + + + + + + | Performing | Address | City/State/Zipcode | Phone Number | | Organization | | | | + + + + + | [facility] | [address] | [place] [address] | | | SERVICES, CORE | [address] | | | + + + + + HEPARIN, EITHER STANDARD / LMW, BLOOD (03/15/2017 9:22 PM PDT) + +-------+ + + + | Component | Value | Ref Range | Performed | Pathologist | | | | | At | Signature | + +-------+ + + + | HEPARIN, | 0.14 | U/mL | [facility] | | | STD LMW | | | LABORATORY | | | | | | SERVICES, | | | | | | CORE | | + +-------+ + + + + + | Specimen | + + | Blood | + + + + + | Narrative | Performed At | + + + | Venous Disease Heparin Protocol (for [facility]) Heparin level 6 | [facility] | | hrs after every heparin rate change. Heparin, Either STD/LMW - | LABORATORY | | Therapeutic Ranges: Heparin, Unfractionated: 0.35 - 0.70 U/mL | SERVICES, CORE | | Enoxaparin, LMWH: 0.70 - 1.20 U/mL Dalteparin, | | | LMWH: 0.70 - 1.20 U/mL Tinzaparin, | | | LMWH: Therapeutic range not established. | | | Preliminary | | | studies suggest range | | | similar to | | | dalteparin. Clinical | | | correlation | | | required. Heparin levels may be unreliable for: | | | Total bilirubin | | | >28.8 mg/dL | | | Triglycerides | | | >690 mg/dL or | | | Moderate to Gross Hemolysis | | + + + + + + + + | Performing | Address | City/State/Zipcode | Phone Number | | Organization | | | | + + + + + | [facility] | [address] | [place] [address] | | | SERVICES, CORE | [address] | | | + + + + + TROPONIN I, PLASMA (03/15/2017 9:22 PM PDT) + + + + + + | Component | Value | Ref Range | Performed | Pathologist | | | | | At | Signature | + + + + + + | TROPONIN I | 370.00 (H) | <0.80 ng/mL | [facility] | | | | | | LABORATORY | | | | | | SERVICES, | | | | | | CORE | | + + + + + + + + | Specimen | + + | Blood | + + + + + | Narrative | Performed At | + + + | Retime start time for 8 hours after last lab | [facility] | | | LABORATORY | | | SERVICES, CORE | + + + + + + + + | Performing | Address | City/State/Zipcode | Phone Number | | Organization | | | | + + + + + | [facility] | [address] | [place] [address] | | | SERVICES, [place] | [address] | | | + + + + + ENDOTRACHEAL INTUBATION (03/15/2017 9:03 PM PDT) + + + | Narrative | Performed At | + + + | Everardo Cintron MD 03/15/2017 9:03 PM ENDOTRACHEAL | | | INTUBATION Date/Time: 03/15/2017 8:58 PM Performed by: EVERARDO CINTRON | | | Authorized by: EVERARDO CINTRON Verbal consent obtained | | | Written consent not obtained Consent given by: Next of kin | | | Patient identity confirmed per policy: Yes Procedural pause: | | | Immediately prior to the procedure a pause per universal protocol | | | was called . Location performed: 12K Indications for procedure: | | | high peak airway pressures, clot in tube Supporting diagnosis: | | | pulmonary insufficiency Procedure preparation: Local anesthesia | | | used?: No Patient sedated: Yes Sedation: Propofol and | | | see MAR for details Vital signs: Vital signs monitored during | | | sedation Post-procedure: Patient tolerance: Patient | | | tolerated the procedure well with no immediate complications | | | Ambubag and suction available at bedside. [facility] Mac 4 used to | | | visualize airway, Grade III view with old blood and new blood | | | present in laryngopharynx plus edema. A LaunchPoint Airway Exchange | | | catheter was inserted and then the endotracheal tube was deflated | | | and removed over the exchange catheter. A new 8.0 ETT was | | | inserted over the catheter and the exchange catheter was then | | | removed. The cuff was inflated and ETCO2 was confirmed prior to | | | placing the patient on the ventilator. Bilateral breath sounds | | | were confirmed. One attempt was utilized for intubation. | | + + + CAPILLARY BLOOD GLUCOSE (NO CHG), POC (03/15/2017 8:18 PM PDT) + +---------+ + + + | Component | Value | Ref Range | Performed | Pathologist | | | | | At | Signature | + +---------+ + + + | BLOOD | 193 (H) | 60 - 99 mg/dL | [facility] - | | | GLUCOSE, | | | [facility] | | | POC | | | [facility] | | | | | | OF CARE | | | | | | TESTS | | + +---------+ + + + + + | Specimen | + + | | + + + + + + + | Performing | Address | City/State/Zipcode | Phone Number | | Organization | | | | + + + + + | [facility] | [address] | [place], [place] | | | [facility] CARE | [address] | [address] | | | TESTS | | | | + + + + + BS-EP-SKA-HB,POC RT (03/15/2017 7:39 PM PDT) + + + + + + | Component | Value | Ref Range | Performed | Pathologist | | | | | At | Signature | + + + + + + | HCO3 | 17.2 (L) | 21 - 28 mmol/L | [facility] - | | | ARTERIAL, | | | [facility] | | | POC | | | [facility] | | | | | | OF CARE | | | | | | TESTS | | + + + + + + | PCO2 | 41 | 32 - 43 mmHg | [facility] - | | | ARTERIAL, | | | [facility] | | | POC | | | [facility] | | | | | | OF CARE | | | | | | TESTS | | + + + + + + | PH | 7.23 (L) | 7.37 - 7.44 | [facility] - | | | ARTERIAL, | | | [facility] | | | POC | | | [facility] | | | | | | OF CARE | | | | | | TESTS | | + + + + + + | O2 SAT | 100.0 (H) | 92.0 - 98.0 % | [facility] - | | | ARTERIAL, | | | [facility] | | | POC | | | [facility] | | | | | | OF CARE | | | | | | TESTS | | + + + + + + | PO2 | 273 (H) | 72 - 104 mmHg | [facility] - | | | ARTERIAL, | | | [facility] | | | POC | | | [facility] | | | | | | OF CARE | | | | | | TESTS | | + + + + + + | BASE EXCESS | -10.4 | | [facility] - | | | ART, POC | | | [facility] | | | | | | [facility] | | | | | | OF CARE | | | | | | TESTS | | + + + + + + | PAO2/FIO2 | 273.0 (L) | >300 mmHg | [facility] - | | | RATIO, POC | | | [facility] | | | | | | [facility] | | | | | | OF CARE | | | | | | TESTS | | + + + + + + | SODIUM, WHL | 141 | 134 - 143 | [facility] - | | | BLD, POC | | mmol/L | [facility] | | | | | | [facility] | | | | | | OF CARE | | | | | | TESTS | | + + + + + + | POTASSIUM,W | 3.0 (L) | 3.4 - 5.0 | [facility] - | | | HL BLD, POC | | mmol/L | [facility] | | | | | | [facility] | | | | | | OF CARE | | | | | | TESTS | | + + + + + + | SATISH | 1.10 (L) | 1.14 - 1.32 | [facility] - | | | IONIZED | | mmol/L | [facility] | | | CA,WHOLE | | | [facility] | | | BLD,POC | | | OF CARE | | | | | | TESTS | | + + + + + + | HEMOGLOBIN, | 12.7 (L) | 13.5 - 17.5 | [facility] - | | | POC | | g/dL | [facility] | | | | | | [facility] | | | | | | OF CARE | | | | | | TESTS | | + + + + + + | LACTATE POC | 7.2 (AA) | 0.5 - 1.6 | [facility] - | | | | | mmol/L | [facility] | | | | | | [facility] | | | | | | OF CARE | | | | | | TESTS | | + + + + + + | FIO2 ART, | 100.0 | | [facility] - | | | POC | | | [facility] | | | | | | [facility] | | | | | | OF CARE | | | | | | TESTS | | + + + + + + | PAT TEMP | 36.7 | | [facility] - | | | ART, POC | | | [facility] | | | | | | [facility] | | | | | | OF CARE | | | | | | TESTS | | + + + + + + + + | Specimen | + + | Blood | + + + + + + + | Performing | Address | City/State/Zipcode | Phone Number | | Organization | | | | + + + + + | [facility] | [address] | [place], [place] | | | JUL[facility]ANN S[facility] | [address] | [address] | | | TESTS | | | | + + + + + CAPILLARY BLOOD GLUCOSE (NO CHG), POC (03/15/2017 7:12 PM PDT) + +---------+ + + + | Component | Value | Ref Range | Performed | Pathologist | | | | | At | Signature | + +---------+ + + + | BLOOD | 288 (H) | 60 - 99 mg/dL | [facility] - | | | GLUCOSE, | | | [facility] | | | POC | | | [facility] | | | | | | OF CARE | | | | | | TESTS | | + +---------+ + + + + + | Specimen | + + | | + + + + + + + | Performing | Address | City/State/Zipcode | Phone Number | | Organization | | | | + + + + + | [facility] | [address] | [place], [place] | | | [facility] | [address] | [address] | | | TESTS | | | | + + + + + CAPILLARY BLOOD GLUCOSE (NO CHG), POC (03/15/2017 6:07 PM PDT) + +---------+ + + + | Component | Value | Ref Range | Performed | Pathologist | | | | | At | Signature | + +---------+ + + + | BLOOD | 265 (H) | 60 - 99 mg/dL | [facility] - | | | GLUCOSE, | | | [facility] | | | POC | | | [facility] | | | | | | OF CARE | | | | | | TESTS | | + +---------+ + + + + + | Specimen | + + | | + + + + + + + | Performing | Address | City/State/Zipcode | Phone Number | | Organization | | | | + + + + + | [facility] | [address] | [place], [place] | | | [facility] | [facility] | [address] | | | TESTS | | | | + + + + + X-RAY PORTABLE CHEST 1 VIEW (03/15/2017 5:51 PM PDT) + + | Specimen | + + | | + + + + + | Narrative | Performed At | + + + | STUDY: AL CHEST 1 VIEW 03/15/17 17:40:08 COMPARISON: 03/15/17 at | [facility] | | 3:52 PM. HISTORY: Line placement. FINDINGS: Right | RADIOLOGY VOICE | | internal jugular pulmonary arterial catheter has been placed with its | RECOGNITION | | tip in the proximal right main pulmonary artery. No pneumothorax is | | | observed. Remaining support equipment is unchanged. Bibasilar | | | atelectasis is noted without change. Right upper lobe groundglass and | | | consolidative opacity is unchanged. Cardiac and mediastinal borders | | | are normal. IMPRESSION: Right internal jugular pulmonary | | | arterial catheter with tip in proximal right main pulmonary artery, | | | otherwise no change. I have personally reviewed the images | | | and, if necessary, edited the report. I agree with the report as | | | now presented. | | + + + + + | Procedure Note | + + | Service Account, Radicarey Res In Interface - 03/15/2017 6:20 PM PDT STUDY: AL CHEST 1 | | VIEW 03/15/17 17:40:08COMPARISON: 03/15/17 at 3:52 PM.HISTORY: Line placement.FINDINGS: | | Right internal jugular pulmonary arterial catheter has been placed with its tip in the | | proximal right main pulmonary artery. No pneumothorax is observed. Remaining support | | equipment is unchanged. Bibasilar atelectasis is noted without change. Right upper lobe | | groundglass and consolidative opacity is unchanged. Cardiac and mediastinal borders are | | normal.IMPRESSION:Right internal jugular pulmonary arterial catheter with tip in | | proximal right main pulmonary artery, otherwise no change.I have personally reviewed the | | images and, if necessary, edited the report. I agree with the report as now presented. | |is noted without change. Right upper lobe groundglass and consolidative opacity is unchange d. Cardiac and mediastinal borders are normal. | | | |IMPRESSION: | | | |Right internal jugular pulmonary arterial catheter with tip in proximal right main pulmonar y artery, otherwise no change. | | | | | | | |I have personally reviewed the images and, if necessary, edited the report. I agree with t he report as now presented. 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 A | | | pause verifies correct patient, procedure, equipment, cryptologic support specialist | | | and site/side marked as required. CLABSI Prevention Bundle: | | | Insertion site: Right Internal Jugular vein With | | | catheter tip targeted in SVC, see CXR report for confirmation Skin | | | preparation: Chloraprep Protective barrier: Cap, Mask, | | | Hand scrub, Gown, Gloves and Full body drape.Sterile Ultrasound | | | techniques (sterile gel, and sterile probe cover) used | | | Dressing: Covered with sterile gauze | | | applied prior to removal of drape followed by sterile dressing | | | applied Guidewire confirmed to be removed.without | | | difficulties and intact Procedure Details Patient was placed in | | | appropriate position The vascular anatomy was identified by. The | | | modified Seldinger technique (a | | | [id number]-edbw-leu-bvdqkb-laty-mgnc-kisalmy-ybg-dbdqdiwp) was used for | | | vessel cannulation. Fluid manometry was used to confirm venous | | | cannulation and The wire was visualized with ultrasound in the | | | correct target vessel. Ultrasound images printed and will be scanned | | | into EMR A non-tunneled Double-Lumen Introducer Sheath (MAC Cordis) | | | (size of 8.5 Fr) catheter with a length of Standard was inserted to | | | at the skin. A pulmonary artery catheter was inserted following | | | standard technique using wave from guidance to 48 cm at the | | | connector. The connector was locked. All ports aspirated for blood | | | and flushed with Saline Line was secured by suture Procedure | | | comments: The target area was pre scanned and the R IJ determined to | | | be patent and a viable target for access. Sterile prep and drape | | | as documented. Direct ultrasound guidance used. The cordis was | | | then inserted easily and atraumatically via 1 attempt. Again | | | ensuring strict sterile technique, the PAC was then floated without | | | difficulty on first attempt out to wedge position. The balloon | | | was then deflated, the catheter was withdrawn 2 cm, and then locked | | | in position. There were no apparent complications. A CXR has been | | | ordered. Sedation/Anesthesia/Analgesia Analgesia: Yes | | | Anesthesia: sedation with ml Indications: Invasive hemodynamic | | | monitoring and Administration of vasoactive medication Procedure | | | location: 12K Providers: Attending name: Attending physically | | | present: Yes Monitoring The patients vital signs were monitored by | | | EKG, SaO2, NIBP and Arterial line during the procedure. For details | | | see EMR.Vital signs stable during the procedure: yes. Line | | | Placement Verification Chest radiograph ordered to verify placement | | | Complications None Attempts 1 attempt(s) were madeIndications: | | | Invasive hemodynamic monitoring and Administration of vasoactive | | | medication | | + + + CENTRAL LINE PLACEMENT (03/15/2017 5:34 PM PDT) + + + | Narrative | Performed At | + + + | Jose Ramon Alvarado MD 03/15/2017 5:34 PM Procedure | | | Note: Central Line Placement Name: Ron Mckeon MRN: | | | [id number] 03/15/2017 Time: 5:26 PM Diagnosis: shock At | | | 15:30 (time), prior to the beginning of the procedure, the team | | | paused to verify the patient | | | | | | s identity, the procedure to be performed (in accordance with the | | | consent,) and the correct side/site. The patient was positioned | | | appropriately. All relevant images and results were properly labeled | | | and displayed. We addressed antibiotic prophylaxis and fluids for | | | irrigation as applicable to this patient. Any safety precautions | | | were addressed. Indication: infusion of vasoactive | | | medications and PA cath Consent: A discussion of the risks, | | | benefits, and alternatives was not possible due to urgency of the | | | procedure and patient's condition prior to the procedure. | | | Procedure Details: The resident physician did thoroughly complete | | | the handwashing procedure. The procedure was performed using | | | full barrier precautions. Sonography was utilized for pre-procedure | | | identification of the vascular anatomy, and was used during the | | | procedure. The landmarks for an internal jugular right sided line | | | placement were identified. Anesthesia was obtained with 4 ml of | | | 1% Lidocaine . The area was prepped and draped in the usual | | | sterile fashion. The procedure was performed under direct | | | ultrasound guidance. The vessel was cannulated with return of dark | | | red, non-pulsatile blood. A wire was placed, and ultrasound | | | confirmed its presence within the lumen of the vein. A non-tunneled | | | 8.5 Fr Introducer with side port was placed using the Seldinger | | | technique. However, the wire appeared to kink within the | | | subcutaneous tissues and the introducer did not advance easily. It | | | was withdrawn, along with the wire. Pressure was held on the site | | | for 30 minutes, without apparent hematoma formation. The area was | | | hemostatic. Ultrasound showed the presence of lung sliding | | | bilaterally on the anterior chest and at the apices. A portable | | | chest xray showed no evidence of pneumothorax. An hour later, | | | the R IJ was examined using ultrasound and found to be patent, | | | without clot or subcutaneous fluid collection. The attending | | | physician did thoroughly complete the handwashing procedure. The | | | procedure was performed using full barrier precautions. Sonography | | | was utilized for pre-procedure identification of the vascular | | | anatomy, and was used during the procedure. The landmarks for an | | | internal jugular right sided line placement were | | | identified. Anesthesia was obtained with 4 ml of 1% Lidocaine | | | . The area was prepped and draped in the usual sterile | | | fashion. The procedure was performed under direct ultrasound | | | guidance. The vessel was cannulated with return of dark red, | | | non-pulsatile blood. A wire was placed, ultrasound demonstrated | | | venous placement. The vessel was dilated, and an 8.5 Fr introducer | | | placed easily. There was good blood return from all ports. The | | | ports were appropriately flushed. The line was sutured in place | | | in the usual fashion. An appropriate dressing was placed over the | | | site. Findings: There were no changes to the patient's | | | vital signs. The catheter was flushed with 10ccof normal saline. The | | | patient did tolerate the procedure well. Recommendations: A | | | CXR was ordered to verify placement. Jose Ramon Alvarado | | | MD [place], [facility] Emergency Medicine Personal Pager: [phone] | | | | | + + + LACTATE (03/15/2017 4:49 PM PDT) + + + + + + | Component | Value | Ref Range | Performed | Pathologist | | | | | At | Signature | + + + + + + | LACTATE | 7.5 () | mmol/L | [facility] | | | | | | LABORATORY | | | | | | SERVICES, | | | | | | CORE | | + + + + + + + + | Specimen | + + | Blood | + + + + + | Narrative | Performed At | + + + | Reference Range: Venous blood: 0.5 - 2.2 mmol/L Critical | [facility] | | >= 4.0 mmol/L Arterial blood: 0.5 - 1.6 mmol/L Critical >= 4.0 | LABORATORY | | mmol/L | SERVICES, CORE | + + + + + + + + | Performing | Address | City/State/Zipcode | Phone Number | | Organization | | | | + + + + + | [facility] | [address] | [place] [address] | | | SERVICES, CORE | [address] | | | + + + + + CAPILLARY BLOOD GLUCOSE (NO CHG), POC (03/15/2017 4:46 PM PDT) + +---------+ + + + | Component | Value | Ref Range | Performed | Pathologist | | | | | At | Signature | + +---------+ + + + | BLOOD | 266 (H) | 60 - 99 mg/dL | [facility] - | | | GLUCOSE, | | | [place] | | | POC | | | [facility] | | | | | | OF CARE | | | | | | TESTS | | + +---------+ + + + + + | Specimen | + + | | + + + + + + + | Performing | Address | City/State/Zipcode | Phone Number | | Organization | | | | + + + + + | [facility] | [address] | [place], [place] | | | [facility] | [address] | [address] | | | TESTS | | | | + + + + + PROCEDURE NOTE (03/15/2017 4:19 PM PDT) + + + | Narrative | Performed At | + + + | Rodney Hilliard MD 03/15/2017 4:19 PM PROCEDURE: MARKY | | | INSERTION Patient arrived in cardiogenic shock. Unable to obtain | | | informed consent due to emergent need for procedure, patient | | | intubated, unarousable. INDICATION: Cardiogenic shock, Guidance | | | for ECMO Cannulation PROBE INSERTION: The patient had pre-existing | | | oropharyngeal bleeding, which per report, was due to traumatic | | | intubation. The mouth was suctioned. The stomach was suctioned | | | and OG tube removed. The MARKY was then easily and atraumatically | | | placed on first attempt under GETA; sterile jelly used for | | | lubricant. There were no apparent complications. EXAM:A focused | | | exam was then conducted by myself and Dr Wang from cardiology to | | | help guide ECMO cannulation. At the end of the ECMO cannulation | | | procedure the venous cannula was visualized in the SVC, just | | | proximal to the confluence of the SCV and RA. This information | | | was communicated to the cardiac surgeons who were satisfied with the | | | cannula position. Rodney Hilliard MD | | + + + BLOOD GAS, POC RT (03/15/2017 4:06 PM PDT) + + + + + + | Component | Value | Ref Range | Performed | Pathologist | | | | | At | Signature | + + + + + + | HCO3 | 18.8 (L) | 21 - 28 mmol/L | [facility] - | | | ARTERIAL, | | | [facility] | | | POC | | | [place] | | | | | | OF CARE | | | | | | TESTS | | + + + + + + | PCO2 | 51 (H) | 32 - 43 mmHg | [facility] - | | | ARTERIAL, | | | [place] | | | POC | | | [place] | | | | | | OF CARE | | | | | | TESTS | | + + + + + + | PH | 7.18 (L) | 7.37 - 7.44 | [facility] - | | | ARTERIAL, | | | [place] | | | POC | | | [place] | | | | | | OF CARE | | | | | | TESTS | | + + + + + + | O2 SAT | 100.2 (H) | 92.0 - 98.0 % | [facility] - | | | ARTERIAL, | | | [facility] | | | POC | | | [facility] | | | | | | OF CARE | | | | | | TESTS | | + + + + + + | PO2 | 455 (H) | 72 - 104 mmHg | [facility] - | | | ARTERIAL, | | | [place] | | | POC | | | [facility] | | | | | | OF CARE | | | | | | TESTS | | + + + + + + | BASE EXCESS | -9.6 | | [facility] - | | | ART, POC | | | [facility] | | | | | | [facility] | | | | | | OF CARE | | | | | | TESTS | | + + + + + + | PAO2/FIO2 | 455.0 | >300 mmHg | [facility] - | | | RATIO, POC | | | [place] | | | | | | [facility] | | | | | | OF CARE | | | | | | TESTS | | + + + + + + | FIO2 ART, | 100.0 | | [facility] - | | | POC | | | [facility] | | | | | | [place], POINT | | | | | | OF CARE | | | | | | TESTS | | + + + + + + | PAT TEMP | 37.0 | | [facility] - | | | ART, POC | | | [facility] | | | | | | [place], POINT | | | | | | OF CARE | | | | | | TESTS | | + + + + + + + + | Specimen | + + | Blood | + + + + + + + | Performing | Address | City/State/Zipcode | Phone Number | | Organization | | | | + + + + + | [facility] | [address] | [place], [place] | | | [facility] | [address] | [address] | | | TESTS | | | | + + + + + X-RAY PORTABLE CHEST 1 VIEW (03/15/2017 4:03 PM PDT) + + | Specimen | + + | | + + + + + | Narrative | Performed At | + + + | EXAM: AL CHEST 1 VIEW 03/15/17 15:42:37 HISTORY: ECMO cannula | [facility] | | placement, recent ST segment elevation myocardial infarction | RADIOLOGY VOICE | | COMPARISON: 03/15/17 FINDINGS: ETT 5 cm above jefferson. ECMO | RECOGNITION | | venous collection cannula with tip in mid-lower SVC. An intra-aortic | | | balloon pump with cephalad radiopaque marker 1 cm above jefferson and 1 | | | cm below aortic arch. Bibasilar and perihilar atelectasis. Asymmetric | | | groundglass opacity involving the right lung apex. Trace left pleural | | | fluid. No obvious pneumothorax is seen. Dense retrocardiac | | | atelectasis. IMPRESSION: ECMO venous collection cannula with | | | tip at mid-lower SVC. IABP 1 cm below aortic arch. Asymmetric | | | groundglass and consolidative opacities within the right lung apex, | | | concerning for acute mitral regurgitation in the setting of recent | | | myocardial infarction. I have personally reviewed the images | | | and, if necessary, edited the report. I agree with the report as | | | now presented. | | + + + + + | Procedure Note | + + | Service Account, [employer] In Interface - 03/15/2017 6:18 PM PDT EXAM: AL CHEST 1 | | VIEW 03/15/17 15:42:37 HISTORY: ECMO cannula placement, recent ST segment elevation | | myocardial infarctionCOMPARISON: 03/15/17FINDINGS: ETT 5 cm above jefferson. ECMO venous | | collection cannula with tip in mid-lower SVC. An intra-aortic balloon pump with cephalad | | radiopaque marker 1 cm above jefferson and 1 cm below aortic arch. Bibasilar and perihilar | | atelectasis. Asymmetric groundglass opacity involving the right lung apex. Trace left | | pleural fluid. No obvious pneumothorax is seen. Dense retrocardiac | | atelectasis.IMPRESSION: ECMO venous collection cannula with tip at mid-lower SVC.IABP 1 | | cm below aortic arch.Asymmetric groundglass and consolidative opacities within the right | | lung apex, concerning for acute mitral regurgitation in the setting of recent | | myocardial infarction.I have personally reviewed the images and, if necessary, edited | | the report. I agree with the report as now presented. | | | |ECMO venous collection cannula with tip at mid-lower SVC. | | | |IABP 1 cm below aortic arch. | | | |Asymmetric groundglass and consolidative opacities within the right lung apex, concerning f or acute mitral regurgitation in the setting of recent myocardial infarction. | | | | | | | |I have personally reviewed the images and, if necessary, edited the report. I agree with t he report as now presented. | + + + +---------+ + + | Performing | Address | City/State/Zipcode | Phone Number | | Organization | | | | + +---------+ + + | [facility] | | | | | VOICE RECOGNITION | | | | + +---------+ + + BLOOD GAS, POC RT (03/15/2017 4:03 PM PDT) + + + + + + | Component | Value | Ref Range | Performed | Pathologist | | | | | At | Signature | + + + + + + | HCO3 | 21.0 (L) | 22 - 28 mmol/L | [facility] - | | | VENOUS, POC | | | [place] | | | | | | [facility] | | | | | | OF CARE | | | | | | TESTS | | + + + + + + | PCO2 | 63 (H) | 35 - 50 mmHg | [facility] - | | | VENOUS, POC | | | [place] | | | | | | [place] | | | | | | OF CARE | | | | | | TESTS | | + + + + + + | PH VENOUS, | 7.13 (L) | 7.35 - 7.45 | [facility] - | | | POC | | | [place] | | | | | | [facility], [facility] | | | | | | OF CARE | | | | | | TESTS | | + + + + + + | BASE EXCESS | -8.1 | | [facility] - | | | LEONARDO, POC | | | [place] | | | | | | [facility], [facility] | | | | | | OF CARE | | | | | | TESTS | | + + + + + + | O2 SAT | 76.2 | % | [facility] - | | | VENOUS, POC | | | [place] | | | | | | [facility], [facility] | | | | | | OF CARE | | | | | | TESTS | | + + + + + + | PO2 VENOUS, | 49 | 30 - 55 mmHg | [facility] - | | | POC | | | [place] | | | | | | [facility], POINT | | | | | | OF CARE | | | | | | TESTS | | + + + + + + | FIO2 | 0.0 | | [facility] - | | | VENOUS, POC | | | [place] | | | | | | [facility], [facility] | | | | | | OF CARE | | | | | | TESTS | | + + + + + + | PAT TEMP | 37.0 | | [facility] - | | | VENOUS,POC | | | [place] | | | | | | [facility], [facility] | | | | | | OF CARE | | | | | | TESTS | | + + + + + + + + | Specimen | + + | Blood | + + + + + + + | Performing | Address | City/State/Zipcode | Phone Number | | Organization | | | | + + + + + | [facility] | [address] | [place], [place] | | | [facility] | [address] | [phone] | | | TESTS | | | | + + + + + CAPILLARY BLOOD GLUCOSE (NO CHG), POC (03/15/2017 3:47 PM PDT) + +---------+ + + + | Component | Value | Ref Range | Performed | Pathologist | | | | | At | Signature | + +---------+ + + + | BLOOD | 325 (H) | 60 - 99 mg/dL | [facility] - | | | GLUCOSE, | | | [place] | | | POC | | | [facility] | | | | | | OF CARE | | | | | | TESTS | | + +---------+ + + + + + | Specimen | + + | | + + + + + + + | Performing | Address | City/State/Zipcode | Phone Number | | Organization | | | | + + + + + | [facility] | [address] | [place], [place] | | | [facility] | [address] | [phone] | | | TESTS | | | | + + + + + BLOOD GAS, POC RT (03/15/2017 3:44 PM PDT) + + + + + + | Component | Value | Ref Range | Performed | Pathologist | | | | | At | Signature | + + + + + + | HCO3 | 18.5 (L) | 21 - 28 mmol/L | [facility] - | | | ARTERIAL, | | | [place] | | | POC | | | [facility] | | | | | | OF CARE | | | | | | TESTS | | + + + + + + | PCO2 | 50 (H) | 32 - 43 mmHg | [facility] - | | | ARTERIAL, | | | [place] | | | POC | | | [facility] | | | | | | OF CARE | | | | | | TESTS | | + + + + + + | PH | 7.18 (L) | 7.37 - 7.44 | [facility] - | | | ARTERIAL, | | | [place] | | | POC | | | [place] [place] | | | | | | OF CARE | | | | | | TESTS | | + + + + + + | O2 SAT | 100.2 (H) | 92.0 - 98.0 % | [facility] - | | | ARTERIAL, | | | [place] | | | POC | | | [place] | | | | | | OF CARE | | | | | | TESTS | | + + + + + + | PO2 | 375 (H) | 72 - 104 mmHg | [facility] - | | | ARTERIAL, | | | [place] | | | POC | | | [facility] | | | | | | OF CARE | | | | | | TESTS | | + + + + + + | BASE EXCESS | -9.9 | | [facility] - | | | ART, POC | | | [place] | | | | | | [facility], POINT | | | | | | OF CARE | | | | | | TESTS | | + + + + + + | PAO2/FIO2 | 375.0 | >300 mmHg | [facility] - | | | RATIO, POC | | | [place] | | | | | | [place], POINT | | | | | | OF CARE | | | | | | TESTS | | + + + + + + | FIO2 ART, | 100.0 | | [facility] - | | | POC | | | [facility] | | | | | | [facility] | | | | | | OF CARE | | | | | | TESTS | | + + + + + + | PAT TEMP | 37.0 | | [facility] - | | | ART, POC | | | [place] | | | | | | [facility] | | | | | | OF CARE | | | | | | TESTS | | + + + + + + + + | Specimen | + + | Blood | + + + + + + + | Performing | Address | City/State/Zipcode | Phone Number | | Organization | | | | + + + + + | [facility] | [address] | [place], [place] | | | [facility] | [address] | [phone] | | | TESTS | | | | + + + + + CBC (HEMOGRAM) ONLY (03/15/2017 3:39 PM PDT) + + + + + + | Component | Value | Ref Range | Performed | Pathologist | | | | | At | Signature | + + + + + + | WHITE CELL | 27.68 (H) | 3.50 - 10.80 | [facility] | | | COUNT | | K/cu mm | LABORATORY | | | | | | SERVICES, | | | | | | CORE | | + + + + + + | RED CELL | 3.98 (L) | 4.50 - 6.00 | [facility] | | | COUNT | | M/cu mm | LABORATORY | | | | | | SERVICES, | | | | | | CORE | | + + + + + + | HEMOGLOBIN | 13.0 (L) | 13.5 - 17.5 | [facility] | | | | | g/dL | LABORATORY | | | | | | SERVICES, | | | | | | CORE | | + + + + + + | HEMATOCRIT | 37.5 (L) | 41.0 - 53.0 % | [facility] | | | | | | LABORATORY | | | | | | SERVICES, | | | | | | CORE | | + + + + + + | MCV | 94.2 | 80.0 - 96.0 fL | [facility] | | | | | | LABORATORY | | | | | | SERVICES, | | | | | | CORE | | + + + + + + | MCHC | 34.7 | 33.0 - 35.5 | [facility] | | | | | g/dL | LABORATORY | | | | | | SERVICES, | | | | | | CORE | | + + + + + + | RDW SD | 46.9 (H) | 35.1 - 46.3 fL | [facility] | | | | | | LABORATORY | | | | | | SERVICES, | | | | | | CORE | | + + + + + + | PLATELET | 315 | 150 - 400 K/cu | [facility] | | | COUNT | | mm | LABORATORY | | | | | | SERVICES, | | | | | | CORE | | + + + + + + | MPV | 10.5 | 9.7 - 12.3 fL | [facility] | | | | | | LABORATORY | | | | | | SERVICES, | | | | | | CORE | | + + + + + + | NRBC% | 0.0 | 0.0 - 0.3 % | [facility] | | | | | | LABORATORY | | | | | | SERVICES, | | | | | | CORE | | + + + + + + | NRBC# | 0.00 | 0.00 - 0.02 | [facility] | | | | | K/cu mm | LABORATORY | | | | | | SERVICES, | | | | | | CORE | | + + + + + + + + | Specimen | + + | Blood | + + + + + | Narrative | Performed At | + + + | Q 6 hrs x 24 hrs | [facility] | | | LABORATORY | | | SERVICES, CORE | + + + + + + + + | Performing | Address | City/State/Zipcode | Phone Number | | Organization | | | | + + + + + | [facility] | [address] | [place] [address] | | | SERVICES, CORE | [address] | | | + + + + + COAGULOPATHY PANEL (INR,APTT,FIBRINOGEN) (03/15/2017 3:39 PM PDT) + + + + + + | Component | Value | Ref Range | Performed | Pathologist | | | | | At | Signature | + + + + + + | INR | 1.63 (H) | 0.90 - 1.20 INR | [facility] | | | | | | LABORATORY | | | | | | SERVICES, | | | | | | CORE | | + + + + + + | APTT | 68.8 (H) | 26.0 - 36.0 | [facility] | | | | | seconds | LABORATORY | | | | | | SERVICES, | | | | | | CORE | | + + + + + + | FIBRINOGEN | 272 | 200 - 450 mg/dL | [facility] | | | LEVEL | | | LABORATORY | | | | | | SERVICES, | | | | | | CORE | | + + + + + + + + | Specimen | + + | Blood | + + + + + | Narrative | Performed At | + + + | Must order with concurrent CBC INR Therapeutic ranges for full | [facility] | | anticoagulation: INR for Venous | LABORATORY | | Thromboembolism (2.0 - 3.0) INR INR for | SERVICES, CORE | | most patients with mech. valves (2.5 - 3.5) INR APTT | | | Therapeutic Range: (75 - 120) | | | sec Heparin levels of 0.35 - 0.7 U/mL | | + + + + + + + + | Performing | Address | City/State/Zipcode | Phone Number | | Organization | | | | + + + + + | [facility] | [address] | [place] [address] | | | [facility], [facility] | [address] | | | + + + + + PHOSPHORUS, PLASMA (03/15/2017 3:39 PM PDT) + +-------+ + + + | Component | Value | Ref Range | Performed | Pathologist | | | | | At | Signature | + +-------+ + + + | PHOSPHORUS, | 3.1 | 2.4 - 4.7 mg/dL | [facility] | | | PLASMA | | | LABORATORY | | | (LAB) | | | SERVICES, | | | | | | CORE | | + +-------+ + + + + + | Specimen | + + | Blood | + + + + + + + | Performing | Address | City/State/Zipcode | Phone Number | | Organization | | | | + + + + + | [facility] | [address] | [place] [address] | | | SERVICES, CORE | [address] | | | + + + + + MAGNESIUM, PLASMA (03/15/2017 3:39 PM PDT) + +-------+ + + + | Component | Value | Ref Range | Performed | Pathologist | | | | | At | Signature | + +-------+ + + + | MAGNESIUM,P | 1.9 | 1.8 - 2.5 mg/dL | [facility] | | | [facility] | | | LABORATORY | | | | | | ARASH, | | | | | | CORE | | + +-------+ + + + + + | Specimen | + + | Blood | + + + + + + + | Performing | Address | City/State/Zipcode | Phone Number | | Organization | | | | + + + + + | [facility] | [address] | [place] [address] | | | SERVICES, CORE | [address] | | | + + + + + COMPLETE METABOLIC SET (NA,K,CL,CO2,BUN,CREAT,GLUC,CA,AST,ALT,BILI TOTAL,ALK PHOS,ALB,PROT TOTAL) (03/15/2017 3:39 PM PDT) + + + + + + | Component | Value | Ref Range | Performed | Pathologist | | | | | At | Signature | + + + + + + | GLUCOSE, | 362 (H) | 60 - 99 mg/dL | [facility] | | | PLASMA | | | LABORATORY | | | (LAB) | | | SERVICES, | | | | | | CORE | | + + + + + + | BUN, PLASMA | 27 (H) | 6 - 20 mg/dL | [facility] | | | (LAB) | | | LABORATORY | | | | | | SERVICES, | | | | | | CORE | | + + + + + + | CREATININE | 1.86 (H) | 0.70 - 1.30 | [facility] | | | PLASMA | | mg/dL | LABORATORY | | | (LAB) | | | SERVICES, | | | | | | CORE | | + + + + + + | EGFR | 45 (L) | >60 mL/min | [facility] | | | - | | | LABORATORY | | | SLOVENIAN | | | SERVICES, | | | | | | CORE | | + + + + + + | EGFR NON | 37 (L) | >60 mL/min | [facility] | | | -SOREN | | | LABORATORY | | | RICAN | | | SERVICES, | | | | | | CORE | | + + + + + + | SODIUM, | 143 | 136 - 145 | [facility] | | | PLASMA | | mmol/L | LABORATORY | | | (LAB) | | | SERVICES, | | | | | | CORE | | + + + + + + | POTASSIUM, | 3.1 (L) | 3.4 - 5.0 | [facility] | | | PLASMA | | mmol/L | LABORATORY | | | (LAB) | | | SERVICES, | | | | | | CORE | | + + + + + + | CHLORIDE, | 109 (H) | 97 - 108 mmol/L | [facility] | | | PLASMA | | | LABORATORY | | | (LAB) | | | SERVICES, | | | | | | CORE | | + + + + + + | TOTAL CO2, | 20 (L) | 21 - 32 mmol/L | [facility] | | | PLASMA | | | LABORATORY | | | (LAB) | | | SERVICES, | | | | | | CORE | | + + + + + + | CALCIUM, | 7.3 (L) | 8.6 - 10.2 | [facility] | | | PLASMA | | mg/dL | LABORATORY | | | (LAB) | | | SERVICES, | | | | | | CORE | | + + + + + + | CALCIUM(ALB | 8.6 | 8.6 - 10.2 | [facility] | | | CORRECTED) | | mg/dL | LABORATORY | | | | | | SERVICES, | | | | | | CORE | | + + + + + + | BILIRUBIN | 0.3 | 0.3 - 1.2 mg/dL | [facility] | | | TOTAL | | | LABORATORY | | | | | | SERVICES, | | | | | | CORE | | + + + + + + | TOTAL | 5.0 (L) | 6.4 - 8.2 g/dL | [facility] | | | PROTEIN, | | | LABORATORY | | | PLASMA | | | SERVICES, | | | (LAB) | | | CORE | | + + + + + + | ALBUMIN, | 2.4 (L) | 3.5 - 4.7 g/dL | [facility] | | | PLASMA | | | LABORATORY | | | (LAB) | | | SERVICES, | | | | | | CORE | | + + + + + + | ALK PHOS | 67 | 56 - 119 U/L | [facility] | | | | | | LABORATORY | | | | | | SERVICES, | | | | | | CORE | | + + + + + + | AST(SGOT) | 662 (H) | <=41 U/L | [facility] | | | | | | LABORATORY | | | | | | SERVICES, | | | | | | CORE | | + + + + + + | ALT (SGPT) | 126 (H) | <=60 U/L | [facility] | | | | | | LABORATORY | | | | | | SERVICES, | | | | | | CORE | | + + + + + + | ANION GAP | 14 | mmol/L | [facility] | | | | | | LABORATORY | | | | | | SERVICES, | | | | | | CORE | | + + + + + + | ANION | 18 (H) | 4 - 11 mmol/L | [facility] | | | GAP(ALB | | | LABORATORY | | | CORRECTED) | | | SERVICES, | | | | | | CORE | | + + + + + + | POTASSIUM | No Hemo | | [facility] | | | CMNT | | | LABORATORY | | | | | | SERVICES, | | | | | | CORE | | + + + + + + | BILI T CMNT | No Hemo | | [facility] | | | | | | LABORATORY | | | | | | SERVICES, | | | | | | CORE | | + + + + + + | AST CMNT | No Hemo | | [facility] | | | | | | LABORATORY | | | | | | SERVICES, | | | | | | CORE | | + + + + + + + + | Specimen | + + | Blood | + + + + + | Narrative | Performed At | + + + | GFR is estimated using the MDRD equation recommended by the | [facility] | | National Kidney Disease Education Program. Estimated GFR | LABORATORY | | Interpretive Information: <60 mL/min/1.73 sq | SERVICES, CORE | | m Chronic Kidney Disease <15 mL/min/1.73 | | | sq m Kidney Failure Estimated GFR greater | | | that 60 mL/min/1.73 sq m is of limited clinical value. The MDRD | | | equation is not valid in the following situations: - Patients under | | | 18 years of age - Severe malnutrition or obesity - Vegetarian diet | | | - Rapidly changing kidney function | | + + + + + + + + | Performing | Address | City/State/Zipcode | Phone Number | | Organization | | | | + + + + + | [facility] | [address] | [place] [address] | | | SERVICES, CORE | [address] | | | + + + + + PROCEDURE NOTE (03/15/2017 3:17 PM PDT) + + + | Narrative | Performed At | + + + | Dale Mak MD 03/15/2017 3:17 PM Brief Op Note Preop | | | Dx: Cardiogenic shock Postop Dx: same Procedure: ECMO | | | cannulation Surgeon: Obdulio Powell Specimens: none | | | Stable to ICU Electronically signed by: Dale Mak, | | | Ye, Ph.D. Professor and Chief Division of Cardiothoracic Surgery | | | [facility] - Mail Code [id number] [facility] | | | [place] [address] | | + + + X-RAY PORTABLE CHEST 1 VIEW (03/15/2017 2:32 PM PDT) + + | Specimen | + + | | + + + + + | Narrative | Performed At | + + + | STUDY: AL CHEST 1 VIEW 03/15/17 14:21:08 COMPARISON: 03/15/17. | [facility] | | HISTORY: Introducer placement-June when back blood. | RADIOLOGY VOICE | | FINDINGS/IMPRESSION: Endotracheal tube is obscured by metallic | RECOGNITION | | tube/scope in midline mediastinum probably within the esophagus. IABP | | | tip is seen 3.4 cm below the superior aspect of the aortic arch. There | | | is no change in the groundglass and consolidative opacities in the | | | upper lobes, right greater than left as well as bibasilar atelectasis. | | | The cardiac and mediastinal borders are stable. No acute osseous | | | abnormality is seen. I have personally reviewed the | | | images and, if necessary, edited the report. I agree with the | | | report as now presented. | | + + + + + | Procedure Note | + + | Service Account, [employer] In Interface - 03/15/2017 2:46 PM PDT STUDY: AL CHEST 1 | | VIEW 03/15/17 14:21:08COMPARISON: 03/15/17.HISTORY: Introducer placement-June when | | back blood.FINDINGS/IMPRESSION: Endotracheal tube is obscured by metallic tube/scope in | | midline mediastinum probably within the esophagus. IABP tip is seen 3.4 cm below the | | superior aspect of the aortic arch. There is no change in the groundglass and | | consolidative opacities in the upper lobes, right greater than left as well as bibasilar | | atelectasis. The cardiac and mediastinal borders are stable. No acute osseous | | abnormality is seen.I have personally reviewed the images and, if necessary, edited the | | report. I agree with the report as now presented. | |groundglass and consolidative opacities in the upper lobes, right greater than left as well as bibasilar atelectasis. The cardiac and mediastinal borders are stable. No acute osseous abnormality is seen. | | | | | | | | | |I have personally reviewed the images and, if necessary, edited the report. I agree with t he report as now presented. | + + + +---------+ + + | Performing | Address | City/State/Zipcode | Phone Number | | Organization | | | | + +---------+ + + | [facility] | | | | | VOICE RECOGNITION | | | | + +---------+ + + PRODUCT - RED CELLS LEUKOREDUCED (03/15/2017 2:24 PM PDT) + + + + + + | Component | Value | Ref Range | Performed | Pathologist | | | | | At | Signature | + + + + + + | PRODUCT | -1 RED BLOOD CELL | | [facility] | | | DESCRIPTION | ADENINE-SALINE ADDED | | LABORATORY | | | | LEUKOCYTE | | SERVICES, | | | | | | TRANSFUSION | | | | | | MEDICINE | | + + + + + + | PRODUCT | [id number] | | [facility] | | | UNIT # | | | LABORATORY | | | | | | SERVICES, | | | | | | TRANSFUSION | | | | | | MEDICINE | | + + + + + + | UNIT ABO | O | | [facility] | | | | | | LABORATORY | | | | | | SERVICES, | | | | | | TRANSFUSION | | | | | | MEDICINE | | + + + + + + | UNIT RH | POS | | [facility] | | | | | | LABORATORY | | | | | | SERVICES, | | | | | | TRANSFUSION | | | | | | MEDICINE | | + + + + + + | STATUS OF | Returned to Blood Bank | | [facility] | | | UNIT | | | LABORATORY | | | | | | SERVICES, | | | | | | TRANSFUSION | | | | | | MEDICINE | | + + + + + + | EXPIRATION | [id number] | | [facility] | | | DATE | | | LABORATORY | | | | | | SERVICES, | | | | | | TRANSFUSION | | | | | | MEDICINE | | + + + + + + | BLOOD TYPE | 5100 | | [facility] | | | BARCODE | | | LABORATORY | | | | | | SERVICES, | | | | | | TRANSFUSION | | | | | | MEDICINE | | + + + + + + | BLOOD | [id number] | | [facility] | | | PRODUCT | | | LABORATORY | | | CODE | | | SERVICES, | | | | | | TRANSFUSION | | | | | | MEDICINE | | + + + + + + + + | Specimen | + + | | + + + + + + + | Performing | Address | City/State/Zipcode | Phone Number | | Organization | | | | + + + + + | [facility] | [address] | [place] [address] | | | SERVICES, | [address] | | | | TRANSFUSION MEDICINE | | | | + + + + + PRODUCT - RED CELLS LEUKOREDUCED (03/15/2017 2:24 PM PDT) + + + + + + | Component | Value | Ref Range | Performed | Pathologist | | | | | At | Signature | + + + + + + | PRODUCT | -1 RED BLOOD CELL | | [facility] | | | DESCRIPTION | ADENINE-SALINE ADDED | | LABORATORY | | | | LEUKOCYTE | | SERVICES, | | | | | | TRANSFUSION | | | | | | MEDICINE | | + + + + + + | PRODUCT | [id number] | | [facility] | | | UNIT # | | | LABORATORY | | | | | | SERVICES, | | | | | | TRANSFUSION | | | | | | MEDICINE | | + + + + + + | UNIT ABO | O | | [facility] | | | | | | LABORATORY | | | | | | SERVICES, | | | | | | TRANSFUSION | | | | | | MEDICINE | | + + + + + + | UNIT RH | POS | | [facility] | | | | | | LABORATORY | | | | | | SERVICES, | | | | | | TRANSFUSION | | | | | | MEDICINE | | + + + + + + | STATUS OF | Returned to Blood Bank | | [facility] | | | UNIT | | | LABORATORY | | | | | | SERVICES, | | | | | | TRANSFUSION | | | | | | MEDICINE | | + + + + + + | EXPIRATION | [id number] | | [facility] | | | DATE | | | LABORATORY | | | | | | SERVICES, | | | | | | TRANSFUSION | | | | | | MEDICINE | | + + + + + + | BLOOD TYPE | 5100 | | [facility] | | | BARCODE | | | LABORATORY | | | | | | SERVICES, | | | | | | TRANSFUSION | | | | | | MEDICINE | | + + + + + + | BLOOD | [id number] | | [facility] | | | PRODUCT | | | LABORATORY | | | CODE | | | SERVICES, | | | | | | TRANSFUSION | | | | | | MEDICINE | | + + + + + + + + | Specimen | + + | | + + + + + + + | Performing | Address | City/State/Zipcode | Phone Number | | Organization | | | | + + + + + | [facility] | [address] | [place] [address] | | | SERVICES, | [address] | | | | TRANSFUSION MEDICINE | | | | + + + + + PRODUCT - RED CELLS LEUKOREDUCED (03/15/2017 2:24 PM PDT) + + + + + + | Component | Value | Ref Range | Performed | Pathologist | | | | | At | Signature | + + + + + + | PRODUCT | -1 RED BLOOD CELL | | [facility] | | | DESCRIPTION | ADENINE-SALINE ADDED | | LABORATORY | | | | LEUKOCYTE | | SERVICES, | | | | | | TRANSFUSION | | | | | | MEDICINE | | + + + + + + | PRODUCT | [id number] | | [facility] | | | UNIT # | | | LABORATORY | | | | | | SERVICES, | | | | | | TRANSFUSION | | | | | | MEDICINE | | + + + + + + | UNIT ABO | O | | [facility] | | | | | | LABORATORY | | | | | | SERVICES, | | | | | | TRANSFUSION | | | | | | MEDICINE | | + + + + + + | UNIT RH | POS | | [facility] | | | | | | LABORATORY | | | | | | SERVICES, | | | | | | TRANSFUSION | | | | | | MEDICINE | | + + + + + + | STATUS OF | Returned to Blood Bank | | [facility] | | | UNIT | | | LABORATORY | | | | | | SERVICES, | | | | | | TRANSFUSION | | | | | | MEDICINE | | + + + + + + | EXPIRATION | [id number] | | [facility] | | | DATE | | | LABORATORY | | | | | | SERVICES, | | | | | | TRANSFUSION | | | | | | MEDICINE | | + + + + + + | BLOOD TYPE | 5100 | | [facility] | | | BARCODE | | | LABORATORY | | | | | | SERVICES, | | | | | | TRANSFUSION | | | | | | MEDICINE | | + + + + + + | BLOOD | [id number] | | [facility] | | | PRODUCT | | | LABORATORY | | | CODE | | | SERVICES, | | | | | | TRANSFUSION | | | | | | MEDICINE | | + + + + + + + + | Specimen | + + | | + + + + + + + | Performing | Address | City/State/Zipcode | Phone Number | | Organization | | | | + + + + + | [facility] | [address] | [place] [address] | | | SERVICES, | [address] | | | | TRANSFUSION MEDICINE | | | | + + + + + PRODUCT - RED CELLS LEUKOREDUCED (03/15/2017 2:24 PM PDT) + + + + + + | Component | Value | Ref Range | Performed | Pathologist | | | | | At | Signature | + + + + + + | PRODUCT | -1 RED BLOOD CELL | | [facility] | | | DESCRIPTION | ADENINE-SALINE ADDED | | LABORATORY | | | | LEUKOCYTE | | SERVICES, | | | | | | TRANSFUSION | | | | | | MEDICINE | | + + + + + + | PRODUCT | [id number] | | [facility] | | | UNIT # | | | LABORATORY | | | | | | SERVICES, | | | | | | TRANSFUSION | | | | | | MEDICINE | | + + + + + + | UNIT ABO | O | | [facility] | | | | | | LABORATORY | | | | | | SERVICES, | | | | | | TRANSFUSION | | | | | | MEDICINE | | + + + + + + | UNIT RH | POS | | [facility] | | | | | | LABORATORY | | | | | | SERVICES, | | | | | | TRANSFUSION | | | | | | MEDICINE | | + + + + + + | STATUS OF | Returned to Blood Bank | | [facility] | | | UNIT | | | LABORATORY | | | | | | SERVICES, | | | | | | TRANSFUSION | | | | | | MEDICINE | | + + + + + + | EXPIRATION | [id number] | | [facility] | | | DATE | | | LABORATORY | | | | | | SERVICES, | | | | | | TRANSFUSION | | | | | | MEDICINE | | + + + + + + | BLOOD TYPE | 5100 | | [facility] | | | BARCODE | | | LABORATORY | | | | | | SERVICES, | | | | | | TRANSFUSION | | | | | | MEDICINE | | + + + + + + | BLOOD | [id number] | | [facility] | | | PRODUCT | | | LABORATORY | | | CODE | | | SERVICES, | | | | | | TRANSFUSION | | | | | | MEDICINE | | + + + + + + + + | Specimen | + + | | + + + + + + + | Performing | Address | City/State/Zipcode | Phone Number | | Organization | | | | + + + + + | [facility] | [address] | [place] [address] | | | ARASH, | [address] | | | | TRANSFUSION MEDICINE | | | | + + + + + XF-IE-RHB-HB,POC RT (03/15/2017 1:23 PM PDT) + + + + + + | Component | Value | Ref Range | Performed | Pathologist | | | | | At | Signature | + + + + + + | HCO3 | 19.6 (L) | 21 - 28 mmol/L | [facility] - | | | ARTERIAL, | | | [facility] | | | POC | | | [facility] | | | | | | OF CARE | | | | | | TESTS | | + + + + + + | PCO2 | 54 (H) | 32 - 43 mmHg | [facility] - | | | ARTERIAL, | | | [facility] | | | POC | | | [facility] | | | | | | OF CARE | | | | | | TESTS | | + + + + + + | PH | 7.17 (L) | 7.37 - 7.44 | [facility] - | | | ARTERIAL, | | | [facility] | | | POC | | | [facility] | | | | | | OF CARE | | | | | | TESTS | | + + + + + + | O2 SAT | 90.7 (L) | 92.0 - 98.0 % | [facility] - | | | ARTERIAL, | | | [facility] | | | POC | | | [facility] | | | | | | OF CARE | | | | | | TESTS | | + + + + + + | PO2 | 70 (L) | 72 - 104 mmHg | [facility] - | | | ARTERIAL, | | | [facility] | | | POC | | | [facility] | | | | | | OF CARE | | | | | | TESTS | | + + + + + + | BASE EXCESS | -9.0 | | [facility] - | | | ART, POC | | | [facility] | | | | | | [facility] | | | | | | OF CARE | | | | | | TESTS | | + + + + + + | PAO2/FIO2 | 70.0 (L) | >300 mmHg | [facility] - | | | RATIO, POC | | | [facility] | | | | | | [facility] | | | | | | OF CARE | | | | | | TESTS | | + + + + + + | SODIUM, WHL | 140 | 134 - 143 | [facility] - | | | BLD, POC | | mmol/L | [facility] | | | | | | [facility] | | | | | | OF CARE | | | | | | TESTS | | + + + + + + | POTASSIUM,W | 3.9 | 3.4 - 5.0 | [facility] - | | | HL BLD, POC | | mmol/L | [facility] | | | | | | [facility] | | | | | | OF CARE | | | | | | TESTS | | + + + + + + | SATISH | 1.09 (L) | 1.14 - 1.32 | [facility] - | | | IONIZED | | mmol/L | [facility] | | | CA,WHOLE | | | R[facility], POINT | | | BLD,POC | | | OF CARE | | | | | | TESTS | | + + + + + + | HEMOGLOBIN, | 15.3 | 13.5 - 17.5 | [facility] - | | | POC | | g/dL | [facility] | | | | | | [facility] | | | | | | OF CARE | | | | | | TESTS | | + + + + + + | LACTATE POC | 6.3 (AA) | 0.5 - 1.6 | [facility] - | | | | | mmol/L | [facility] | | | | | | [facility] | | | | | | OF CARE | | | | | | TESTS | | + + + + + + | FIO2 ART, | 100.0 | | [facility] - | | | POC | | | [facility] | | | | | | [facility], POINT | | | | | | OF CARE | | | | | | TESTS | | + + + + + + | PAT TEMP | 37.0 | | [facility] - | | | KARY MAKI | | | [facility] | | | | | | [facility] | | | | | | OF CARE | | | | | | TESTS | | + + + + + + + + | Specimen | + + | Blood | + + + + + + + | Performing | Address | City/State/Zipcode | Phone Number | | Organization | | | | + + + + + | [facility] | [address] | [place], [place] | | | [facility] OF CARE | [facility] | [address] | | | TESTS | | | | + + + + + CAPILLARY BLOOD GLUCOSE (NO CHG), POC (03/15/2017 1:22 PM PDT) + +---------+ + + + | Component | Value | Ref Range | Performed | Pathologist | | | | | At | Signature | + +---------+ + + + | BLOOD | 320 (H) | 60 - 99 mg/dL | [facility] - | | | GLUCOSE, | | | [facility] | | | POC | | | [facility] | | | | | | OF CARE | | | | | | TESTS | | + +---------+ + + + + + | Specimen | + + | | + + + + + + + | Performing | Address | City/State/Zipcode | Phone Number | | Organization | | | | + + + + + | [facility] | [address] | [place], [place] | | | [facility] OF CARE | [address] | [address] | | | TESTS | | | | + + + + + TRANSTHORACIC ECHOCARDIOGRAM, ADULT (03/15/2017 12:54 PM PDT) + +-------+ + + + | Component | Value | Ref Range | Performed | Pathologist | | | | | At | Signature | + +-------+ + + + | EJECTION | 20 | | [facility] | | | FRACTION | | | OF | | | | | | CARDIOLOGY | | + +-------+ + + + | MV A VMAX | 0.5 | | [facility] | | | | | | OF | | | | | | CARDIOLOGY | | + +-------+ + + + | MV E? | 0.1 | | [facility] | | | | | | OF | | | | | | CARDIOLOGY | | + +-------+ + + + | MV E VMAX | 0.7 | | [facility] | | | | | | OF | | | | | | CARDIOLOGY | | + +-------+ + + + | RV TAPSE | 1.3 | | [facility] | | | | | | OF | | | | | | CARDIOLOGY | | + +-------+ + + + | RV TDI S? | 12.2 | | [facility] | | | | | | OF | | | | | | CARDIOLOGY | | + +-------+ + + + | EJECTION | 20 | % | [facility] | | | FRACTION | | | OF | | | RANGE MEAN | | | CARDIOLOGY | | | VALUE | | | | | + +-------+ + + + + + | Specimen | + + | | + + + + + | Narrative | Performed At | + + + | [facility] | [facility]PT [facility] | | [facility] Adult Echocardiography | CARDIOLOGY | | Laboratory [address] [place] [address] | | | [place] [address] Pt Name: | | | RON Neena MCKEON Study Date/Time 03/15/2017 / 12:54:21 | | | PMMRN: [id number] Most recent | | | prior: -Acc #: [id number] No. previous | | | echos: 0DOB: 1955 61 years Heart Rate: | | | 145 bpmHeight: Blood | | | Pressure: 90/67 mm/HgWeight: 249.0 | | | lb Gender: | | | MBSA: 2.34 m2 Order | | | ID: [id number] Banquet Captain: Vahid Parmar [facility] | | | Referring Provider: Gaurav Castellanos Location: [facility] | | | Performed: 2D, Color flow, Spectral Doppler.Study Quality: This was a | | | technically difficult study, but image quality improved with echo | | | contrast.Exam Indication: Evaluate for mechanical complications after | | | AMI; Reevaluate LV function to guide therapy Transthoracic | | | Echocardiographic Report | | | + | | | ---------+Final | | | Impressions: | | | | | | | | | | | | | | | | | | 1. The LV ejection fraction is severely | | | decreased. | | | | | | | | | 2. Visually estimated left ventricular ejection fraction | | | is < 20%. 3. Left ventricular systolic | | | thickening is globally abnormal. 4. | | | Mildly reduced RV systolic | | | function. | | | 5. No ventricular septal defect is seen, although | | | views are technically | | | limited. | | | | | | 6. There is a small amount of pericardial fluid which is | | | located anterior to the distal right ventricle. Prominent | | | pericardial fat. There is no right atrial or right | | | ventricular collapse suggestive of tamponade physiology. 7. | | | Valves are not well | | | seen. | | | 8. There are no prior exams | | | available for | | | comparison. | | | | | | | | | + | | | + Description of Findings: Cardiac Rhythm: | | | Normal sinus rhythm.Left Ventricle: Visually estimated left | | | ventricular ejection fraction is < 20%. The LV ejection fraction is | | | severely decreased.No ventricular septal defect is seen, although | | | views are technically limited.Left Ventricular Wall Motion: Left | | | ventricular systolic thickening is globally abnormal.Atria: Left | | | atrial size is normal. Normal right atrium.Right Ventricle: The right | | | ventricular size is normal. Global RV systolic function is mildly | | | reduced. TAPSE measures 1.29cm. The RV TDI s' velocity is | | | 12.2cm/sec.Aortic Valve: The aortic valve is not well | | | visualized.Mitral Valve: The mitral valve is not well visualized. No | | | evidence of mitral valve regurgitation.Tricuspid Valve: The tricuspid | | | valve is not well visualized. No tricuspid regurgitation.Pulmonic | | | Valve: The pulmonic valve is not well visualized.Venous: The inferior | | | vena cava was normal sized, with respiratory size variation less than | | | 50%.Pericardium: There is a small amount of pericardial fluid which is | | | located anterior to the distal right ventricle. Prominent pericardial | | | fat. There is no right atrial or right ventricular collapse | | | suggestive of tamponade physiology. Additional Findings: There are no | | | prior exams.2D | | | Measurements Doppler | | | Measurements 2D NL | | | Values Aortic MitralLA vol A/L BP 20.8 ml (40-73ml) | | | Max Rohan Peak E 0.74 m/sLA vol A/L index 8.9 ml/m2 | | | (16-34) Mean grad Peak A 0.52 m/sLA vol MOD BP 20.0 | | | ml (40-73ml) LVOT Rohan E/A Ratio 1.43LA vol MOD index 8.5 | | | ml/m2 (16-34) LVOT Diam TDI (E/e') | | | 6.2 | | | Tricuspid Pulmonic | | | | | | Aorta: Index:Evaluation of chamber size | | | and geometry is accomplished through the incorporation of linear, | | | volumetric, and indexed values Report electronically signed by: | | | [id number] Yajaira Johnson MD (03/15/2017, 3:38:52 PM) Final | | | | | | | | | | | | Final | | + + + + + | Procedure Note | + + | Interface, Cardiology Results - 03/15/2017 3:38 PM [facility] [facility] | | [facility] Echocardiography Laboratory [address] [place] [address] | | [place], [place] [address] Pt Name: RON Chaudhary | | MIKE Study Date/Time 03/15/2017 / 12:54:21 PMMRN: [id number] Most | | recent prior: -Acc #: [id number] No. previous echos: 0DOB: 1955 61 | | years Heart Rate: 145 bpmHeight: Blood Pressure: 90/67 | | mm/HgWeight: 249.0 lb Gender: MBSA: 2.34 m2 | | Order ID: [id number] Banquet Captain: Vahid Parmar [facility] Provider: | | Gaurav Castellanos Location: [facility] Performed: 2D, Color flow, Spectral | | Doppler.Study Quality: This was a technically difficult study, but image quality | | improved with echo contrast.Exam Indication: Evaluate for mechanical complications after | | AMI; Reevaluate LV function to guide therapy Transthoracic Echocardiographic | | Report+ +Fi | | nal Impressions: | | | | 1. The LV ejection fraction is | | severely decreased. | | 2. Visually estimated left ventricular ejection | | fraction is < 20%. 3. Left ventricular systolic thickening is globally | | abnormal. 4. Mildly reduced RV systolic function. | | 5. No ventricular septal defect is seen, although views are technically | | limited. 6. | | There is a small amount of pericardial fluid which is located anterior to the distal | | right ventricle. Prominent pericardial fat. There is no right atrial or right | | ventricular collapse suggestive of tamponade physiology. 7. Valves are not well | | seen. 8. There are no prior exams | | available for comparison. | | | | + + | | Description of Findings: Cardiac Rhythm: Normal sinus rhythm.Left Ventricle: Visually | | estimated left ventricular ejection fraction is < 20%. The LV ejection fraction is | | severely decreased.No ventricular septal defect is seen, although views are technically | | limited.Left Ventricular Wall Motion: Left ventricular systolic thickening is globally | | abnormal.Atria: Left atrial size is normal. Normal right atrium.Right Ventricle: The | | right ventricular size is normal. Global RV systolic function is mildly reduced. TAPSE | | measures 1.29cm. The RV TDI s' velocity is 12.2cm/sec.Aortic Valve: The aortic valve is | | not well visualized.Mitral Valve: The mitral valve is not well visualized. No evidence | | of mitral valve regurgitation.Tricuspid Valve: The tricuspid valve is not well | | visualized. No tricuspid regurgitation.Pulmonic Valve: The pulmonic valve is not well | | visualized.Venous: The inferior vena cava was normal sized, with respiratory size | | variation less than 50%.Pericardium: There is a small amount of pericardial fluid which | | is located anterior to the distal right ventricle. Prominent pericardial fat. There is | | no right atrial or right ventricular collapse suggestive of tamponade physiology. | | Additional Findings: There are no prior exams.2D Measurements | | Doppler Measurements 2D NL Values Aortic MitralLA vol A/L BP | | 20.8 ml (40-73ml) Max Rohan Peak E 0.74 m/sLA vol A/L index 8.9 ml/m2 (16-34) | | Mean grad Peak A 0.52 m/sLA vol MOD BP 20.0 ml (40-73ml) LVOT Rohan E/A Ratio | | 1.43LA vol MOD index 8.5 ml/m2 (16-34) LVOT Diam TDI (E/e') 6.2 | | Tricuspid Pulmonic Aorta: | | Index:Evaluation of chamber size and geometry is accomplished through the | | incorporation of linear, volumetric, and indexed values Report electronically signed by: | | [id number] Yajaira Johnson MD (03/15/2017, 3:38:52 PM) Final | |LV ejection fraction is severely decreased. | |No ventricular septal defect is seen, although views are technically limited. | |Left Ventricular Wall Motion: Left ventricular systolic thickening is globally | |abnormal. | |Atria: Left atrial size is normal. Normal right atrium. | |Right Ventricle: The right ventricular size is normal. Global RV systolic function is | | mildly reduced. TAPSE measures 1.29cm. The RV TDI s' velocity is 12.2cm/sec. | |Aortic Valve: The aortic valve is not well visualized. | |Mitral Valve: The mitral valve is not well visualized. No evidence of mitral valve | |regurgitation. | |Tricuspid Valve: The tricuspid valve is not well visualized. No tricuspid | |regurgitation. | |Pulmonic Valve: The pulmonic valve is not well visualized. | |Venous: The inferior vena cava was normal sized, with respiratory size variation less | | than 50%. | |Pericardium: There is a small amount of pericardial fluid which is located anterior | |to the distal right ventricle. Prominent pericardial fat. There is no right atrial or | | right ventricular collapse suggestive of tamponade physiology. | | | |Additional Findings: There are no prior exams. | |2D Measurements Doppler Measurements | | | | 2D NL Values Aortic Mitral | |LA vol A/L BP 20.8 ml (40-73ml) Max Rohan Peak E 0.74 m/s | |LA vol A/L index 8.9 ml/m2 (16-34) Mean grad Peak A 0.52 m/s | |LA vol MOD BP 20.0 ml (40-73ml) LVOT Rohan E/A Ratio 1.43 | |LA vol MOD index 8.5 ml/m2 (16-34) LVOT Diam TDI (E/e') 6.2 | | Tricuspid Pulmonic | | | | Aorta: Index: | |Evaluation of chamber size and geometry is accomplished through the incorporation of | |linear, volumetric, and indexed values | | | |Report electronically signed by: [id number] Yajaira Johnson MD (03/15/2017, 3:38:52 PM) | | | | | | | | Final | + + + + + + + | Performing | Address | City/State[facility] | Phone Number | | Organization | | | | + + + + + | [facility] | [address] | [place], [place] | | | CARDIOLOGY | [address] | [address] | | + + + + + X-RAY PORTABLE CHEST 1 VIEW (03/15/2017 12:46 PM PDT) + + | Specimen | + + | | + + + + + | Narrative | Performed At | + + + | STUDY: AL CHEST 1 VIEW 03/15/17 12:12:08 COMPARISON: None. | [facility] | | HISTORY: IABP. FINDINGS: Endotracheal tube is seen with its | RADIOLOGY VOICE | | tip 5.7 cm above the jefferson. Feeding tube is in place with its tip not | RECOGNITION | | well-visualized, but probably within the gastric antrum. IABP is | | | observed with the radiopaque tip somewhat more centrally positioned | | | than normal. The tip lies within the descending thoracic aorta 4.2 cm | | | on the top of the aortic arch. There is no pneumothorax or pleural | | | effusion. Bibasilar subsegmental atelectasis is seen. Vascular | | | indistinctness and groundglass and consolidative opacities are | | | observed within the right lung with some sparing of the right lung | | | base and also to a less degree in the left upper lobe. The cardiac and | | | mediastinal borders are within normal limits. No acute osseous | | | abnormality is seen. IMPRESSION: 1. Support quadrant as | | | described. IABP tip 4.2 cm from top of aortic arch. 2. Groundglass | | | and consolidative opacities within both lungs right far greater than | | | left could represent asymmetric pulmonary edema in the setting of | | | acute cardiac disease versus less likely pulmonary hemorrhage or | | | multifocal pneumonia.. I have personally reviewed the images | | | and, if necessary, edited the report. I agree with the report as | | | now presented. | | + + + + + | Procedure Note | + + | Service Account, [facility] In Interface - 03/15/2017 1:10 PM PDT STUDY: AL CHEST 1 | | VIEW 03/15/17 12:12:08COMPARISON: None.HISTORY: IABP.FINDINGS: Endotracheal tube is | | seen with its tip 5.7 cm above the jefferson. Feeding tube is in place with its tip not | | well-visualized, but probably within the gastric antrum. IABP is observed with the | | radiopaque tip somewhat more centrally positioned than normal. The tip lies within the | | descending thoracic aorta 4.2 cm on the top of the aortic arch. There is no pneumothorax | | or pleural effusion. Bibasilar subsegmental atelectasis is seen. Vascular | | indistinctness and groundglass and consolidative opacities are observed within the right | | lung with some sparing of the right lung base and also to a less degree in the left | | upper lobe. The cardiac and mediastinal borders are within normal limits. No acute | | osseous abnormality is seen.IMPRESSION:1. Support quadrant as described. IABP tip 4.2 cm | | from top of aortic arch.2. Groundglass and consolidative opacities within both lungs | | right far greater than left could represent asymmetric pulmonary edema in the setting of | | acute cardiac disease versus less likely pulmonary hemorrhage or multifocal | | pneumonia..I have personally reviewed the images and, if necessary, edited the report. | | I agree with the report as now presented. | | | |2. Groundglass and consolidative opacities within both lungs right far greater than left co uld represent asymmetric pulmonary edema in the setting of acute cardiac disease versus less likely pulmonary hemorrhage or multifocal pneumonia.. | | | | | | | |I have personally reviewed the images and, if necessary, edited the report. I agree with t he report as now presented. | + + + +---------+ + + | Performing | Address | City/State/Zipcode | Phone Number | | Organization | | | | + +---------+ + + | [facility] | | | | | VOICE RECOGNITION | | | | + +---------+ + + 12 LEAD ECG (03/15/2017 12:42 PM PDT) + + + + + + | Component | Value | Ref Range | Performed | Pathologist | | | | | At | Signature | + + + + + + | VENTRICULAR | 143 | bpm | [facility] | | | RATE | | | OF | | | | | | CARDIOLOGY | | + + + + + + | ATRIAL RATE | 144 | ms | [facility] | | | | | | OF | | | | | | CARDIOLOGY | | + + + + + + | P-R | 124 | ms | [facility] | | | INTERVAL | | | OF | | | | | | CARDIOLOGY | | + + + + + + | P AXIS | 5 | deg | [facility] | | | | | | OF | | | | | | CARDIOLOGY | | + + + + + + | QRS | 108 | ms | [facility] | | | DURATION | | | OF | | | | | | CARDIOLOGY | | + + + + + + | QT | 300 | ms | [facility] | | | | | | OF | | | | | | CARDIOLOGY | | + + + + + + | QTCB | 463 | ms | [facility] | | | | | | OF | | | | | | CARDIOLOGY | | + + + + + + | R AXIS | -84 | deg | [facility] | | | | | | OF | | | | | | CARDIOLOGY | | + + + + + + | T AXIS | 102 | deg | [facility] | | | | | | OF | | | | | | CARDIOLOGY | | + + + + + + | ECG | SINUS TACHYCARDIA | | [facility] | | | IMPRESSION | | | OF | | | | | | CARDIOLOGY | | + + + + + + | ECG | LAD, CONSIDER LEFT | | [facility] | | | IMPRESSION | ANTERIOR FASCICULAR | | OF | | | | BLOCK | | CARDIOLOGY | | + + + + + + | ECG | NONSPECIFIC T | | [facility] | | | IMPRESSION | ABNORMALITIES, LATERAL | | OF | | | | LEADS- ABNORMAL ECG - | | CARDIOLOGY | | + + + + + + | ECG | Electronically signed | | [facility] | | | IMPRESSION | by: DELLA ISLAS | | OF | | | | 03-15-2017 16:41:27 | | CARDIOLOGY | | + + + + + [...] | + + + + + | [facility] | [address] | [place], [place] | | | CARDIOLOGY | [address] | [address] | | + + + + + CONFIRMATORY ABO/RH (03/15/2017 12:32 PM PDT) + + + + + + | Component | Value | Ref Range | Performed | Pathologist | | | | | At | Signature | + + + + + + | ABO Group | O | | [facility] | | | | | | LABORAT[facility] | | | | | | SERVICES, | | | | | | TRANSFUSION | | | | | | MEDICINE | | + + + + + + | Rh Type | Positive | | [facility] | | | | | | LABORATORY | | | | | | SERVICES, | | | | | | TRANSFUSION | | | | | | MEDICINE | | + + + + + + + + | Specimen | + + | Blood | + + + + + + + | Performing | Address | City/State/Zipcode | Phone Number | | Organization | | | | + + + + + | [facility] | [address] | [place] [address] | | | SERVICES, | [address] | | | | TRANSFUSION MEDICINE | | | | + + + + + ANTIBODY SCREEN (03/15/2017 12:32 PM PDT) + + + + + + | Component | Value | Ref Range | Performed | Pathologist | | | | | At | Signature | + + + + + + | Antibody | Negative | | [facility] | | | Screen | | | LABORATORY | | | | | | SERVICES, | | | | | | TRANSFUSION | | | | | | MEDICINE | | + + + + + + + + | Specimen | + + | Blood | + + + + + + + | Performing | Address | City/State/Zipcode | Phone Number | | Organization | | | | + + + + + | [facility] | [address] | [place] [address] | | | SERVICES, | [address] | | | | TRANSFUSION MEDICINE | | | | + + + + + RBC MORPHOLOGY (03/15/2017 12:32 PM PDT) + + + + + + | Component | Value | Ref Range | Performed | Pathologist | | | | | At | Signature | + + + + + + | MACROCYTOSI | 1+(10-25cells/HPF) | | [facility] | | | S | | | LABORATORY | | | | | | SERVICES, | | | | | | CORE | | + + + + + + | POLYCHROMAS | 1+ (<1-2cells/HPF) | | [facility] | | | IA | | | LABORATORY | | | | | | SERVICES, | | | | | | CORE | | + + + + + + + + | Specimen | + + | Blood | + + + + + + + | Performing | Address | City/State/Zipcode | Phone Number | | Organization | | | | + + + + + | [facility] | [address] | [place] [address] | | | ARASH, [place]НА | [address] | | | + + + + + CBC AND AUTO DIFF (03/15/2017 12:32 PM PDT) + + + + + + | Component | Value | Ref Range | Performed | Pathologist | | | | | At | Signature | + + + + + + | WHITE CELL | 29.28 (H) | 3.50 - 10.80 | [facility] | | | COUNT | | K/cu mm | LABORATORY | | | | | | SERVICES, | | | | | | CORE | | + + + + + + | RED CELL | 4.73 | 4.50 - 6.00 | [facility] | | | COUNT | | M/cu mm | LABORATORY | | | | | | SERVICES, | | | | | | CORE | | + + + + + + | HEMOGLOBIN | 16.3 | 13.5 - 17.5 | [facility] | | | | | g/dL | LABORATORY | | | | | | SERVICES, | | | | | | CORE | | + + + + + + | HEMATOCRIT | 44.7 | 41.0 - 53.0 % | [facility] | | | | | | LABORATORY | | | | | | SERVICES, | | | | | | CORE | | + + + + + + | MCV | 94.5 | 80.0 - 96.0 fL | [facility] | | | | | | LABORATORY | | | | | | SERVICES, | | | | | | CORE | | + + + + + + | MCHC | 36.5 | 33.0 - 35.5 | [facility] | | | | | g/dL | LABORATORY | | | | | | SERVICES, | | | | | | CORE | | + + + + + + | RDW SD | 47.3 (H) | 35.1 - 46.3 fL | [facility] | | | | | | LABORATORY | | | | | | SERVICES, | | | | | | CORE | | + + + + + + | PLATELET | 396Comment: Few platelet | 150 - 400 K/cu | [facility] | | | COUNT | clumps on smear. Macro | mm | LABORATORY | | | | platelets present. | | SERVICES, | | | | | | CORE | | + + + + + + | MPV | 10.5 | 9.7 - 12.3 fL | [facility] | | | | | | LABORATORY | | | | | | SERVICES, | | | | | | CORE | | + + + + + + | NRBC% | 0.0 | 0.0 - 0.3 % | [facility] | | | | | | LABORATORY | | | | | | SERVICES, | | | | | | CORE | | + + + + + + | NRBC# | 0.00 | 0.00 - 0.02 | [facility] | | | | | K/cu mm | LABORATORY | | | | | | SERVICES, | | | | | | CORE | | + + + + + + | NEUTROPHIL | 82.1 (H) | 50.0 - 70.0 % | [facility] | | | % | | | LABORATORY | | | | | | SERVICES, | | | | | | CORE | | + + + + + + | LYMPHOCYTE | 6.2 (L) | 18.0 - 42.0 % | [facility] | | | % | | | LABORATORY | | | | | | SERVICES, | | | | | | CORE | | + + + + + + | MONOCYTE % | 10.6 (H) | 3.5 - 9.0 % | [facility] | | | | | | LABORATORY | | | | | | SERVICES, | | | | | | CORE | | + + + + + + | EOS % | 0.0 (L) | 1.0 - 3.0 % | [facility] | | | | | | LABORATORY | | | | | | SERVICES, | | | | | | CORE | | + + + + + + | BASO % | 0.3 | 0.0 - 2.0 % | [facility] | | | | | | LABORATORY | | | | | | SERVICES, | | | | | | CORE | | + + + + + + | IG% | 0.8 (H)Comment: Immature | 0.0 - 0.6 % | [facility] | | | | Granulocytes (IG) | | LABORATORY | | | | include metamyelocytes, | | SERVICES, | | | | myelocytes and | | CORE | | | | promyelocytes. Bands | | | | | | are not included in the | | | | | | IG count. Bands are | | | | | | included in the | | | | | | neutrophil count. | | | | + + + + + + | NEUTROPHIL | 24.01 (H) | 1.80 - 7.70 | [facility] | | | # | | K/cu mm | LABORATORY | | | | | | SERVICES, | | | | | | CORE | | + + + + + + | LYMPHOCYTE | 1.82 | 1.00 - 4.80 | [facility] | | | # | | K/cu mm | LABORATORY | | | | | | SERVICES, | | | | | | CORE | | + + + + + + | MONOCYTE # | 3.10 (H) | 0.10 - 0.90 | [facility] | | | | | K/cu mm | LABORATORY | | | | | | SERVICES, | | | | | | CORE | | + + + + + + | EOS # | 0.01 | 0.00 - 0.50 | [facility] | | | | | K/cu mm | LABORATORY | | | | | | SERVICES, | | | | | | CORE | | + + + + + + | BASO # | 0.10 | 0.00 - 0.10 | [facility] | | | | | K/cu mm | LABORATORY | | | | | | SERVICES, | | | | | | CORE | | + + + + + + | IG# | 0.24 (H) | 0.00 - 0.03 | [facility] | | | | | K/cu mm | LABORATORY | | | | | | SERVICES, | | | | | | CORE | | + + + + + + + + | Specimen | + + | Blood | + + + + + | Narrative | Performed At | + + + | Immature Granulocytes (IG) include metamyelocytes, myelocytes | [facility] | | and promyelocytes. Bands are not included in the IG count. Bands | LABORATORY | | are included in the neutrophil count. | ИРИНА ANTOINE | + + + + + + + + | Performing | Address | City/State/Zipcode | Phone Number | | Organization | | | | + + + + + | [facility] | [address] | [place] [address] | | | SERVICES, [place] | [address] | | | + + + + + ABO & RH TYPE (03/15/2017 12:32 PM PDT) + + + + + + | Component | Value | Ref Range | Performed | Pathologist | | | | | At | Signature | + + + + + + | ABO Group | O | | [facility] | | | | | | LABORATORY | | | | | | SERVICES, | | | | | | TRANSFUSION | | | | | | MEDICINE | | + + + + + + | Rh Type | Positive | | [facility] | | | | | | LABORATORY | | | | | | SERVICES, | | | | | | TRANSFUSION | | | | | | MEDICINE | | + + + + + + + + | Specimen | + + | Blood | + + + + + + + | Performing | Address | City/State/Zipcode | Phone Number | | Organization | | | | + + + + + | [facility] | [address] | [place] [address] | | | SERVICES, | [address] | | | | TRANSFUSION MEDICINE | | | | + + + + + TROPONIN I, PLASMA (03/15/2017 12:32 PM PDT) + + + + + + | Component | Value | Ref Range | Performed | Pathologist | | | | | At | Signature | + + + + + + | TROPONIN I | 576.00 (H) | <0.80 ng/mL | [facility] | | | | | | LABORATORY | | | | | | SERVICES, | | | | | | CORE | | + + + + + + + + | Specimen | + + | Blood | + + + + + | Narrative | Performed At | + + + | Retime start time for 8 hours after last lab | [facility] | | | LABORATORY | | | SERVICES, CORE | + + + + + + + + | Performing | Address | City/State/Zipcode | Phone Number | | Organization | | | | + + + + + | [facility] | [address] | [place] [address] | | | SERVICES, CORE | [address] | | | + + + + + COAGULOPATHY PANEL (INR,APTT,FIBRINOGEN) (03/15/2017 12:32 PM PDT) + + + + + + | Component | Value | Ref Range | Performed | Pathologist | | | | | At | Signature | + + + + + + | INR | 5.18 (HH) | 0.90 - 1.20 INR | [facility] | | | | | | LABORATORY | | | | | | SERVICES, | | | | | | CORE | | + + + + + + | APTT | 107.5 (H) | 26.0 - 36.0 | [facility] | | | | | seconds | LABORATORY | | | | | | SERVICES, | | | | | | CORE | | + + + + + + | FIBRINOGEN | 256 | 200 - 450 mg/dL | [facility] | | | LEVEL | | | LABORATORY | | | | | | SERVICES, | | | | | | CORE | | + + + + + + + + | Specimen | + + | Blood | + + + + + | Narrative | Performed At | + + + | INR Therapeutic ranges for full anticoagulation: INR for | [facility] | | Venous Thromboembolism (2.0 - 3.0) INR | LABORATORY | | INR for most patients with mech. valves (2.5 - 3.5) INR | SERVICES, CORE | | APTT Therapeutic Range: (75 - | | | 120) sec Heparin levels of 0.35 - 0.7 U/mL | | + + + + + + + + | Performing | Address | City/State/Zipcode | Phone Number | | Organization | | | | + + + + + | [facility] | [address] | [place] [address] | | | SERVICES, CORE | [address] | | | + + + + + MAGNESIUM, PLASMA (03/15/2017 12:32 PM PDT) + +-------+ + + + | Component | Value | Ref Range | Performed | Pathologist | | | | | At | Signature | + +-------+ + + + | MAGNESIUM,P | 2.0 | 1.8 - 2.5 mg/dL | [facility] | | | LASMA | | | LABORATORY | | | | | | SERVICES, | | | | | | CORE | | + +-------+ + + + + + | Specimen | + + | Blood | + + + + + | Narrative | Performed At | + + + | Retime start time for 8 hours after last lab | [facility] | | | LABORATORY | | | SERVICES, CORE | + + + + + + + + | Performing | Address | City/State/Zipcode | Phone Number | | Organization | | | | + + + + + | [facility] | [address] | [place] [address] | | | SERVICES, CORE | [address] | | | + + + + + COMPLETE METABOLIC SET (NA,K,CL,CO2,BUN,CREAT,GLUC,CA,AST,ALT,BILI TOTAL,ALK PHOS,ALB,PROT TOTAL) (03/15/2017 12:32 PM PDT) + + + + + + | Component | Value | Ref Range | Performed | Pathologist | | | | | At | Signature | + + + + + + | GLUCOSE, | 386 (H) | 60 - 99 mg/dL | [facility] | | | PLASMA | | | LABORATORY | | | (LAB) | | | SERVICES, | | | | | | CORE | | + + + + + + | BUN, PLASMA | 26 (H) | 6 - 20 mg/dL | [facility] | | | (LAB) | | | LABORATORY | | | | | | SERVICES, | | | | | | CORE | | + + + + + + | CREATININE | 1.77 (H) | 0.70 - 1.30 | [facility] | | | PLASMA | | mg/dL | LABORATORY | | | (LAB) | | | SERVICES, | | | | | | CORE | | + + + + + + | EGFR | 47 (L) | >60 mL/min | [facility] | | | - | | | LABORATORY | | | SLOVENIAN | | | SERVICES, | | | | | | CORE | | + + + + + + | EGFR NON | 39 (L) | >60 mL/min | [facility] | | | -SOREN | | | LABORATORY | | | RICAN | | | SERVICES, | | | | | | CORE | | + + + + + + | SODIUM, | 140 | 136 - 145 | [facility] | | | PLASMA | | mmol/L | LABORATORY | | | (LAB) | | | SERVICES, | | | | | | CORE | | + + + + + + | POTASSIUM, | 3.2 (L) | 3.4 - 5.0 | [facility] | | | PLASMA | | mmol/L | LABORATORY | | | (LAB) | | | SERVICES, | | | | | | CORE | | + + + + + + | CHLORIDE, | 103 | 97 - 108 mmol/L | [facility] | | | PLASMA | | | LABORATORY | | | (LAB) | | | SERVICES, | | | | | | CORE | | + + + + + + | TOTAL CO2, | 23 | 21 - 32 mmol/L | [facility] | | | PLASMA | | | LABORATORY | | | (LAB) | | | SERVICES, | | | | | | CORE | | + + + + + + | CALCIUM, | 7.0 (L) | 8.6 - 10.2 | [facility] | | | PLASMA | | mg/dL | LABORATORY | | | (LAB) | | | SERVICES, | | | | | | CORE | | + + + + + + | CALCIUM(ALB | 7.7 (L) | 8.6 - 10.2 | [facility] | | | CORRECTED) | | mg/dL | LABORATORY | | | | | | SERVICES, | | | | | | CORE | | + + + + + + | BILIRUBIN | 0.4 | 0.3 - 1.2 mg/dL | [facility] | | | TOTAL | | | LABORATORY | | | | | | SERVICES, | | | | | | CORE | | + + + + + + | TOTAL | 6.3 (L) | 6.4 - 8.2 g/dL | [facility] | | | PROTEIN, | | | LABORATORY | | | PLASMA | | | SERVICES, | | | (LAB) | | | CORE | | + + + + + + | ALBUMIN, | 3.1 (L) | 3.5 - 4.7 g/dL | [facility] | | | PLASMA | | | LABORATORY | | | (LAB) | | | SERVICES, | | | | | | CORE | | + + + + + + | ALK PHOS | 86 | 56 - 119 U/L | [facility] | | | | | | LABORATORY | | | | | | SERVICES, | | | | | | CORE | | + + + + + + | AST(SGOT) | 959 (H) | <=41 U/L | [facility] | | | | | | LABORATORY | | | | | | SERVICES, | | | | | | CORE | | + + + + + + | ALT (SGPT) | 158 (H) | <=60 U/L | [facility] | | | | | | LABORATORY | | | | | | SERVICES, | | | | | | CORE | | + + + + + + | ANION GAP | 14 | mmol/L | [facility] | | | | | | LABORATORY | | | | | | SERVICES, | | | | | | CORE | | + + + + + + | ANION | 16 (H) | 4 - 11 mmol/L | [facility] | | | GAP(ALB | | | LABORATORY | | | CORRECTED) | | | SERVICES, | | | | | | CORE | | + + + + + + | POTASSIUM | No Hemo | | [facility] | | | CMNT | | | LABORATORY | | | | | | SERVICES, | | | | | | CORE | | + + + + + + | BILI T CMNT | No Hemo | | [facility] | | | | | | LABORATORY | | | | | | SERVICES, | | | | | | CORE | | + + + + + + | AST CMNT | No Hemo | | [facility] | | | | | | LABORATORY | | | | | | SERVICES, | | | | | | CORE | | + + + + + + + + | Specimen | + + | Blood | + + + + + | Narrative | Performed At | + + + | Retime start time for 8 hours after last lab GFR is estimated using | [facility] | | the MDRD equation recommended by the National Kidney Disease | LABORATORY | | Education Program. Estimated GFR Interpretive Information: <60 | SERVICES, CORE | | mL/min/1.73 sq m Chronic Kidney Disease | | | <15 mL/min/1.73 sq m Kidney Failure | | | Estimated GFR greater that 60 mL/min/1.73 sq m is of limited clinical | | | value. The MDRD equation is not valid in the following situations: | | | - Patients under 18 years of age - Severe malnutrition or obesity | | | - Vegetarian diet - Rapidly changing kidney function | | + + + + + + + + | Performing | Address | City/State/Zipcode | Phone Number | | Organization | | | | + + + + + | [facility] | [address] | [place] [address] | | | SERVICES, CORE | [address] | | | + + + + + [id number] RT (03/15/2017 12:16 PM PDT) + + + + + + | Component | Value | Ref Range | Performed | Pathologist | | | | | At | Signature | + + + + + + | HCO3 | 20.8 (L) | 21 - 28 mmol/L | [facility] - | | | ARTERIAL, | | | [facility] | | | POC | | | [facility] | | | | | | OF CARE | | | | | | TESTS | | + + + + + + | PCO2 | 68 (H) | 32 - 43 mmHg | [facility] - | | | ARTERIAL, | | | [facility] | | | POC | | | [facility] | | | | | | OF CARE | | | | | | TESTS | | + + + + + + | PH | 7.10 (AA) | 7.37 - 7.44 | [facility] - | | | ARTERIAL, | | | [facility] | | | POC | | | [facility] | | | | | | OF CARE | | | | | | TESTS | | + + + + + + | O2 SAT | 81.0 (L) | 92.0 - 98.0 % | [facility] - | | | ARTERIAL, | | | [facility] | | | POC | | | [facility] | | | | | | OF CARE | | | | | | TESTS | | + + + + + + | PO2 | 58 (L) | 72 - 104 mmHg | [facility] - | | | ARTERIAL, | | | [facility] | | | POC | | | [facility] | | | | | | OF CARE | | | | | | TESTS | | + + + + + + | BASE EXCESS | -8.9 | | [facility] - | | | ART, POC | | | [facility] | | | | | | [facility] | | | | | | OF CARE | | | | | | TESTS | | + + + + + + | PAO2/FIO2 | 58.3 (L) | >300 mmHg | [facility] - | | | RATIO, POC | | | [facility] | | | | | | [facility] | | | | | | OF CARE | | | | | | TESTS | | + + + + + + | SODIUM, WHL | 143 | 134 - 143 | [facility] - | | | BLD, POC | | mmol/L | [facility] | | | | | | [facility] | | | | | | OF CARE | | | | | | TESTS | | + + + + + + | POTASSIUM,W | 2.8 (L) | 3.4 - 5.0 | [facility] - | | | HL BLD, POC | | mmol/L | [facility] | | | | | | [facility] | | | | | | OF CARE | | | | | | TESTS | | + + + + + + | SATISH | 0.92 (L) | 1.14 - 1.32 | [facility] - | | | IONIZED | | mmol/L | [facility] | | | CA,WHOLE | | | [facility] | | | BLD,POC | | | OF CARE | | | | | | TESTS | | + + + + + + | HEMOGLOBIN, | 15.8 | 13.5 - 17.5 | [facility] - | | | POC | | g/dL | [facility] | | | | | | [facility] | | | | | | OF CARE | | | | | | TESTS | | + + + + + + | LACTATE POC | 5.7 (AA) | 0.5 - 1.6 | [facility] - | | | | | mmol/L | [facility] | | | | | | [facility] | | | | | | OF CARE | | | | | | TESTS | | + + + + + + | FIO2 ART, | 100.0 | | [facility] - | | | POC | | | [facility] | | | | | | [facility] | | | | | | OF CARE | | | | | | TESTS | | + + + + + + | PAT TEMP | 37.0 | | [facility] - | | | ART, POC | | | [place] | | | | | | JULIANN [facility]IL[facility] | | | | | | OF CARE | | | | | | TESTS | | + + + + + + + + | Specimen | + + | Blood | + + + + + + + | Performing | Address | City/State/Zipcode | Phone Number | | Organization | | | | + + + + + | [facility] | [address] | [place], [place] | | | [facility] | [address] | [phone] | | | TESTS | | | | + + + + + documented in this encounter Visit Diagnoses + + | Diagnosis | + + | Cardiogenic shock (HCC) - Primary Cardiogenic shock | + + | ST elevation myocardial infarction involving left main coronary artery (HCC) Acute | | myocardial infarction of other anterior wall, initial episode of care | + + | Tobacco use Tobacco use disorder | + + | Hypertension Unspecified essential hypertension | + + | Hypercholesterolemia Pure hypercholesterolemia | + + | Acute kidney injury (HCC) Acute kidney failure, unspecified | + + | Lactic acid acidosis Acidosis | + + | Acute respiratory failure with hypoxia and hypercapnia (HCC) | + + | STEMI (ST elevation myocardial infarction) (HCC) Acute myocardial infarction, | | unspecified site, episode of care unspecified | + + | Coronary artery disease Coronary atherosclerosis of unspecified type of vessel, | | eagle or graft | + + | Tongue laceration Open wound of tongue and floor of mouth, without mention of | | complication | + + | On mechanically assisted ventilation (HCC) | + + | Ventricular fibrillation (HCC) Ventricular fibrillation | + + | Postoperative anemia due to acute blood loss Acute posthemorrhagic anemia | + + | Opacity of lung on imaging study | + + | Stress hyperglycemia Other abnormal blood chemistry | + + | Abnormal CK Other nonspecific abnormal serum enzyme levels | + + | Abdominal aortic aneurysm (AAA) without rupture (HCC) | + + | Shivering Chills (without fever) | + + | Ischemic cardiomyopathy Other specified forms of chronic ischemic heart disease | + + | On tube feeding diet | + + | Hypernatremia Hyperosmolality and/or hypernatremia | + + | 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) | + + | Tachypnea | + + | Physical deconditioning Debility, unspecified | + + | Acute delirium Other alteration of consciousness | + + | Primary insomnia Persistent disorder of initiating or maintaining sleep | + + | Generalized pain | + + documented in this encounter Administered Medications + +--------+ + +------+------+ | Medication Order | MAR | Action | Dose | Rate | Site | | | Action | Date | | | | + +--------+ + +------+------+ | acetaminophen (TYLENOL) tablet | Given | 03/23/20 | 1,000 mg | | | | 1,000 mg 1,000 mg, feeding tube, | | 17 3:53 | | | | | EVERY 6 HOURS, First dose on Fri | | AM PDT | | | | | 03/20/17 at 1600, Until | | | | | | | Discontinued | | | | | | + +--------+ + +------+------+ +-------+ + +---+---+ | Given | 03/22/20 | 1,000 mg | | | | | 17 9:40 | | | | | | PM PDT | | | | +-------+ + +---+---+ | Given | 03/22/20 | 1,000 mg | | | | | 17 4:14 | | | | | | PM PDT | | | | +-------+ + +---+---+ +---+---+ | | | +---+---+ + +-------+ + +---+---+ | acetaminophen (TYLENOL) tablet | Given | 04/02/20 | 1,000 mg | | | | 1,000 mg 1,000 mg, oral, THREE | | 17 9:37 | | | | | TIMES DAILY, First dose on Sat | | AM PDT | | | | | 03/28/17 at 0900, Until | | | | | | | Discontinued | | | | | | + +-------+ + +---+---+ +-------+ + +---+---+ | Given | 04/01/20 | 1,000 mg | | | | | 17 9:03 | | | | | | PM PDT | | | | +-------+ + +---+---+ | Given | 04/01/20 | 1,000 mg | | | | | 17 4:23 | | | | | | PM PDT | | | | +-------+ + +---+---+ +---+---+ | | | +---+---+ + +-------+ +--------+---+---+ | acetaminophen (TYLENOL) tablet | Given | 03/20/20 | 650 mg | | | | 650 mg 650 mg, feeding tube, | | 17 8:52 | | | | | EVERY 6 HOURS, First dose on Tue | | AM PDT | | | | | 03/17/17 at 1045, Until | | | | | | | Discontinued | | | | | | + +-------+ +--------+---+---+ +-------+ +--------+---+---+ | Given | 03/20/20 | 650 mg | | | | | 17 3:58 | | | | | | AM PDT | | | | +-------+ +--------+---+---+ | Given | 03/19/20 | 650 mg | | | | | 17 10:16 | | | | | | PM PDT | | | | +-------+ +--------+---+---+ +---+---+ | | | +---+---+ + +-------+ +--------+---+---+ | acetaminophen (TYLENOL) tablet | Given | 03/25/20 | 650 mg | | | | 650 mg 650 mg, oral, EVERY 6 | | 17 10:51 | | | | | HOURS, First dose on Thu03/23/17 | | AM PDT | | | | | at 1000, Until Discontinued | | | | | | + +-------+ +--------+---+---+ +-------+ +--------+---+---+ | Given | 03/25/20 | 650 mg | | | | | 17 4:25 | | | | | | AM PDT | | | | +-------+ +--------+---+---+ | Given | 03/24/20 | 650 mg | | | | | 17 10:17 | | | | | | PM PDT | | | | +-------+ +--------+---+---+ +---+---+ | | | +---+---+ + +-------+ +--------+---+---+ | acetaminophen (TYLENOL) tablet | Given | 03/28/20 | 650 mg | | | | 650 mg 650 mg, oral, EVERY 4 | | 17 12:09 | | | | | HOURS, First dose on Thu03/25/17 | | AM PDT | | | | | at 1600, Until Discontinued | | | | | | + +-------+ +--------+---+---+ +-------+ +--------+---+---+ | Given | 03/27/20 | 650 mg | | | | | 17 7:56 | | | | | | PM PDT | | | | +-------+ +--------+---+---+ | Given | 03/27/20 | 650 mg | | | | | 17 4:15 | | | | | | PM PDT | | | | +-------+ +--------+---+---+ +---+---+ | | | +---+---+ + +-------+ +--------+---+---+ | acetaminophen (TYLENOL) tablet | Given | 03/29/20 | 650 mg | | | | 650 mg 650 mg, oral, ONCE, 1 | | 17 5:37 | | | | | dose, [place] 03/29/17 at 0530 | | AM PDT | | | | + +-------+ +--------+---+---+ + +---+ | | | + +---+ | acetaminophen (TYLENOL) tablet | | | 1 dose, Starting 03/25/17 at | | | 1515, Until Thu03/25/17 at 1521 | | + +---+ | | | + +---+ | artificial tears (dextran | | | 70-hypromellose) (NATURE'S TEARS) | | | 0.1-0.3 % ophthalmic drops 1 | | | drop 1 drop, Both Eyes, | | | NEEDED, Starting Thu03/24/17 at | | | 1825, Until Thu04/02/17 at 2031, | | | Dry Eyes | | + +---+ | | | + +---+ + +-------+ +---------+---+---+ | artificial tears (dextran | Given | 03/22/20 | 2 drops | | | | 70-hypromellose) (NATURE'S TEARS) | | 17 8:05 | | | | | 0.1-0.3 % ophthalmic drops 2 | | AM PDT | | | | | drop 2 drop, Both Eyes, EVERY 4 | | | | | | | HOURS, First dose on Thu03/15/17 | | | | | | | at 1600, Until Discontinued | | | | | | + +-------+ +---------+---+---+ +-------+ +---------+---+---+ | Given | 03/22/20 | 2 drops | | | | | 17 4:12 | | | | | | AM PDT | | | | +-------+ +---------+---+---+ | Given | 03/21/20 | 2 drops | | | | | 17 11:47 | | | | | | PM PDT | | | | +-------+ +---------+---+---+ +---+---+ | | | +---+---+ + +-------+ +-------+---+---+ | aspirin chewable tablet 81 mg | Given | 03/23/20 | 81 mg | | | | 81 mg, feeding tube, DAILY, First | | 17 8:30 | | | | | dose on Thu03/16/17 at 0900, | | AM PDT | | | | | Until Discontinued | | | | | | + +-------+ +-------+---+---+ +-------+ +-------+---+---+ | Given | 03/22/20 | 81 mg | | | | | 17 8:01 | | | | | | AM PDT | | | | +-------+ +-------+---+---+ | Given | 03/21/20 | 81 mg | | | | | 17 7:52 | | | | | | AM PDT | | | | +-------+ +-------+---+---+ +---+---+ | | | +---+---+ + +-------+ +-------+---+---+ | aspirin EC tablet 81 mg 81 mg, | Given | 04/02/20 | 81 mg | | | | oral, DAILY, First dose on Thu | | 17 9:38 | | | | | 03/31/17 at 0900, Until | | AM PDT | | | | | Discontinued | | | | | | + +-------+ +-------+---+---+ +-------+ +-------+---+---+ | Given | 04/01/20 | 81 mg | | | | | 17 7:46 | | | | | | AM PDT | | | | +-------+ +-------+---+---+ | Given | 03/31/20 | 81 mg | | | | | 17 9:49 | | | | | | AM PDT | | | | +-------+ +-------+---+---+ +---+---+ | | | +---+---+ + +-------+ +--------+---+---+ | aspirin tablet 325 mg 325 mg, | Given | 03/30/20 | 325 mg | | | | oral, ONCE, 1 dose, Thu03/30/17 | | 17 3:44 | | | | | at 0330 | | AM PDT | | | | + +-------+ +--------+---+---+ +---+---+ | | | +---+---+ + +-------+ +-------+---+---+ | atorvastatin (LIPITOR) tablet | Given | 03/23/20 | 40 mg | | | | 40 mg 40 mg, feeding tube, | | 17 8:30 | | | | | DAILY, First dose on Thu03/16/17 | | AM PDT | | | | | at 1845, Until Discontinued | | | | | | + +-------+ +-------+---+---+ +-------+ +-------+---+---+ | Given | 03/22/20 | 40 mg | | | | | 17 8:01 | | | | | | AM PDT | | | | +-------+ +-------+---+---+ | Given | 03/21/20 | 40 mg | | | | | 17 7:52 | | | | | | AM PDT | | | | +-------+ +-------+---+---+ +---+---+ | | | +---+---+ + +-------+ +-------+---+---+ | atorvastatin (LIPITOR) tablet | Given | 04/02/20 | 40 mg | | | | 40 mg 40 mg, oral, DAILY, First | | 17 9:37 | | | | | dose on Thu03/24/17 at 0900, | | AM PDT | | | | | Until Discontinued | | | | | | + +-------+ +-------+---+---+ +-------+ +-------+---+---+ | Given | 04/01/20 | 40 mg | | | | | 17 7:46 | | | | | | AM PDT | | | | +-------+ +-------+---+---+ | Given | 03/31/20 | 40 mg | | | | | 17 9:49 | | | | | | AM PDT | | | | +-------+ +-------+---+---+ + +---+ | | | + +---+ | bisacodyl (DULCOLAX) | | | suppository 10 mg 10 mg, rectal, | | | DAILY NEEDED, Starting Sun | | | 03/15/17 at 1202, Until Radha 04/02/17 | | | at 2031, 2nd line for no BM in | | | past 2 days OR if no response to | | | MIRALAX or if patient unable to | | | tolerate oral | | + +---+ | | | + +---+ + +---------+ +-----+---+---+ | calcium gluconate 2 g in | New Bag | 03/15/20 | 2 g | | | | dextrose 5 % IV 2 g, | | 17 1:00 | | | | | intravenous, ONCE, 1 dose, Sun | | PM PDT | | | | | 03/15/17 at 1300 | | | | | | + +---------+ +-----+---+---+ +---+---+ | | | +---+---+ + +---------+ +-----+---+---+ | calcium gluconate 2 g in | New Bag | 03/15/20 | 2 g | | | | dextrose 5 % IV 2 g, | | 17 9:24 | | | | | intravenous, ONCE, 1 dose, Sun | | PM PDT | | | | | 03/15/17 at 2100 | | | | | | + +---------+ +-----+---+---+ +---+---+ | | | +---+---+ + +---------+ +-----+---+---+ | calcium gluconate IV 1 gram in | | 03/19/20 | 1 g | | | | NS (PREMADE) 1 g, intravenous, | | 17 2:18 | | | | | ONCE, 1 dose, [facility] 03/19/17 at 1415 | | PM PDT | | | | + +---------+ +-----+---+---+ +---+---+ | | | +---+---+ + +-------+ + +---+---+ | captopril (CAPOTEN) dose 18.75 | Given | 03/24/20 | 18.75 mg | | | | mg 18.75 mg, oral, EVERY 8 | | 17 2:18 | | | | | HOURS, First dose on Thu03/24/17 | | PM PDT | | | | | at 1400, Until Discontinued | | | | | | + +-------+ + +---+---+ +---+---+ | | | +---+---+ + +-------+ +---------+---+---+ | captopril (CAPOTEN) dose 6.25 | Given | 03/20/20 | 6.25 mg | | | | mg 6.25 mg, feeding tube, EVERY | | 17 8:47 | | | | | 8 HOURS, First dose on Thu | | PM PDT | | | | | 03/20/17 at 1400, Until | | | | | | | Discontinued | | | | | | + +-------+ +---------+---+---+ +-------+ +---------+---+---+ | Given | 03/20/20 | 6.25 mg | | | | | 17 2:01 | | | | | | PM PDT | | | | +-------+ +---------+---+---+ +---+---+ | | | +---+---+ + +-------+ +---------+---+---+ | captopril (CAPOTEN) dose 6.25 | Given | 03/21/20 | 6.25 mg | | | | mg 6.25 mg, feeding tube, EVERY | | 17 9:52 | | | | | 8 HOURS, First dose on Sat | | PM PDT | | | | | 03/21/17 at 2200, Until | | | | | | | Discontinued | | | | | | + +-------+ +---------+---+---+ +---+---+ | | | +---+---+ + +-------+ +---------+---+---+ | captopril (CAPOTEN) dose 6.25 | Given | 03/23/20 | 6.25 mg | | | | mg 6.25 mg, feeding tube, EVERY | | 17 6:14 | | | | | 8 HOURS, First dose on Sun | | AM PDT | | | | | 03/22/17 at 1400, Until | | | | | | | Discontinued | | | | | | + +-------+ +---------+---+---+ +-------+ +---------+---+---+ | Given | 03/22/20 | 6.25 mg | | | | | 17 9:37 | | | | | | PM PDT | | | | +-------+ +---------+---+---+ | Given | 03/22/20 | 6.25 mg | | | | | 17 1:55 | | | | | | PM PDT | | | | +-------+ +---------+---+---+ +---+---+ | | | +---+---+ + +-------+ +---------+---+---+ | captopril (CAPOTEN) dose 6.25 | Given | 03/23/20 | 6.25 mg | | | | mg 6.25 mg, oral, EVERY 8 HOURS, | | 17 1:30 | | | | | First dose on Thu03/23/17 at | | PM PDT | | | | | 1400, Until Discontinued | | | | | | + +-------+ +---------+---+---+ +---+---+ | | | +---+---+ + +-------+ +---------+---+---+ | captopril (CAPOTEN) dose 6.25 | Given | 03/23/20 | 6.25 mg | | | | mg 6.25 mg, oral, ONCE, 1 dose, | | 17 2:40 | | | | | 03/23/17 at 1445 | | PM PDT | | | | + +-------+ +---------+---+---+ +---+---+ | | | +---+---+ + +-------+ + +---+---+ | captopril (CAPOTEN) oral dose | Given | 03/20/20 | 3.125 mg | | | | 3.125 mg 3.125 mg, feeding tube, | | 17 6:21 | | | | | EVERY 8 HOURS, First dose on Radha | | AM PDT | | | | | 03/19/17 at 1430, Until | | | | | | | Discontinued | | | | | | + +-------+ + +---+---+ +-------+ + +---+---+ | Given | 03/19/20 | 3.125 mg | | | | | 17 10:16 | | | | | | PM PDT | | | | +-------+ + +---+---+ | Given | 03/19/20 | 3.125 mg | | | | | 17 3:09 | | | | | | PM PDT | | | | +-------+ + +---+---+ +---+---+ | | | +---+---+ + +-------+ + +---+---+ | captopril (CAPOTEN) oral dose | Given | 03/20/20 | 3.125 mg | | | | 3.125 mg 3.125 mg, feeding tube, | | 17 9:40 | | | | | ONCE, 1 dose, [facility] 03/20/17 at | | AM PDT | | | | | 0945 | | | | | | + +-------+ + +---+---+ +---+---+ | | | +---+---+ + +-------+ + +---+---+ | captopril (CAPOTEN) oral dose | Given | 03/22/20 | 3.125 mg | | | | 3.125 mg 3.125 mg, feeding tube, | | 17 6:15 | | | | | EVERY 8 HOURS, First dose on Sun | | AM PDT | | | | | 03/22/17 at 0600, Until | | | | | | | Discontinued | | | | | | + +-------+ + +---+---+ +---+---+ | | | +---+---+ + +-------+ + +---+---+ | captopril (CAPOTEN) oral dose | Given | 03/22/20 | 3.125 mg | | | | 3.125 mg 3.125 mg, oral, ONCE, 1 | | 17 10:04 | | | | | dose, [place] 03/22/17 at 1000 | | AM PDT | | | | + +-------+ + +---+---+ +---+---+ | | | +---+---+ + +-------+ +---------+---+---+ | captopril (CAPOTEN) tablet 12.5 | Given | 03/21/20 | 12.5 mg | | | | mg 12.5 mg, feeding tube, EVERY | | 17 5:28 | | | | | 8 HOURS, First dose on Sat | | AM PDT | | | | | 03/21/17 at 0600, Until | | | | | | | Discontinued | | | | | | + +-------+ +---------+---+---+ +---+---+ | | | +---+---+ + +-------+ +---------+---+---+ | captopril (CAPOTEN) tablet 12.5 | Given | 03/24/20 | 12.5 mg | | | | mg 12.5 mg, oral, EVERY 8 | | 17 6:32 | | | | | HOURS, First dose on Thu03/23/17 | | AM PDT | | | | | at 2200, Until Discontinued | | | | | | + +-------+ +---------+---+---+ +-------+ +---------+---+---+ | Given | 03/23/20 | 12.5 mg | | | | | 17 9:58 | | | | | | PM PDT | | | | +-------+ +---------+---+---+ +---+---+ | | | +---+---+ + +-------+ +-------+---+---+ | captopril (CAPOTEN) tablet 25 | Given | 03/26/20 | 25 mg | | | | mg 25 mg, oral, EVERY 8 HOURS, | | 17 9:48 | | | | | First dose on Thu03/24/17 at | | PM PDT | | | | | 2200, Until Discontinued | | | | | | + +-------+ +-------+---+---+ +-------+ +-------+---+---+ | Given | 03/26/20 | 25 mg | | | | | 17 3:20 | | | | | | PM PDT | | | | +-------+ +-------+---+---+ | Given | 03/26/20 | 25 mg | | | | | 17 10:02 | | | | | | AM PDT | | | | +-------+ +-------+---+---+ +---+---+ | | | +---+---+ + +-------+ +-------+---+---+ | chlorhexidine (PERIDEX) | Given | 03/23/20 | 15 mL | | | | mouthwash 15 mL 15 mL, oral, | | 17 3:53 | | | | | EVERY 6 HOURS, First dose on Sun | | AM PDT | | | | | 03/15/17 at 1600, Until | | | | | | | Discontinued | | | | | | + +-------+ +-------+---+---+ +-------+ +-------+---+---+ | Given | 03/22/20 | 15 mL | | | | | 17 9:44 | | | | | | PM PDT | | | | +-------+ +-------+---+---+ | Given | 03/22/20 | 15 mL | | | | | 17 4:14 | | | | | | PM PDT | | | | +-------+ +-------+---+---+ +---+---+ | | | +---+---+ + +-------+ +-------+---+---+ | chlorhexidine (PERIDEX) | Given | 03/24/20 | 15 mL | | | | mouthwash 15 mL 15 mL, oral, | | 17 8:42 | | | | | TWICE DAILY, 3 doses, First dose | | PM PDT | | | | | on 03/23/17 at 2100, Last dose | | | | | | | on Thu03/24/17 at 2100 | | | | | | + +-------+ +-------+---+---+ +-------+ +-------+---+---+ | Given | 03/24/20 | 15 mL | | | | | 17 9:08 | | | | | | AM PDT | | | | +-------+ +-------+---+---+ | Given | 03/23/20 | 15 mL | | | | | 17 10:00 | | | | | | PM PDT | | | | +-------+ +-------+---+---+ +---+---+ | | | +---+---+ + +-------+ +--------+---+---+ | cholecalciferol (Vitamin D3) | Given | 04/02/20 | 1,000 | | | | (VITAMIN D-3) tablet 1,000 Units | | 17 9:37 | Units | | | | 1,000 Units, oral, DAILY, First | | AM PDT | | | | | dose on Thu03/25/17 at 1745, | | | | | | | Until Discontinued | | | | | | + +-------+ +--------+---+---+ +-------+ +--------+---+---+ | Given | 04/01/20 | 1,000 | | | | | 17 7:46 | Units | | | | | AM PDT | | | | +-------+ +--------+---+---+ | Given | 03/31/20 | 1,000 | | | | | 17 9:49 | Units | | | | | AM PDT | | | | +-------+ +--------+---+---+ +---+---+ | | | +---+---+ + +-------+ +---------+---+---+ | cisatracurium (NIMBEX) | Given | 03/15/20 | 20,000 | | | | injection 20,000 mcg 20,000 mcg | | 17 8:29 | mcg | | | | (20 mg), intravenous, ONCE, 1 | | PM PDT | | | | | dose, 03/15/17 at 2100 | | | | | | + +-------+ +---------+---+---+ +---+---+ | | | +---+---+ + +-------+ +--------+---+---+ | cisatracurium (NIMBEX) | Given | 03/15/20 | 2,000 | | | | injection 1 dose, Starting Sun | | 17 1:52 | mcg | | | | 03/15/17 at 1345, Until 03/15/17 | | PM PDT | | | | | at 1352 | | | | | | + +-------+ +--------+---+---+ +---+---+ | | | +---+---+ + +-------+ +-------+---+---+ | clopidogrel (PLAVIX) tablet 75 | Given | 03/23/20 | 75 mg | | | | mg 75 mg, feeding tube, DAILY, | | 17 8:30 | | | | | First dose on 03/16/17 at | | AM PDT | | | | | 0900, Until Discontinued | | | | | | + +-------+ +-------+---+---+ +-------+ +-------+---+---+ | Given | 03/22/20 | 75 mg | | | | | 17 8:01 | | | | | | AM PDT | | | | +-------+ +-------+---+---+ | Given | 03/21/20 | 75 mg | | | | | 17 7:52 | | | | | | AM PDT | | | | +-------+ +-------+---+---+ +---+---+ | | | +---+---+ + +-------+ +-------+---+---+ | clopidogrel (PLAVIX) tablet 75 | Given | 04/02/20 | 75 mg | | | | mg 75 mg, oral, DAILY, First | | 17 9:37 | | | | | dose on Thu03/24/17 at 0900, | | AM PDT | | | | | Until Discontinued | | | | | | + +-------+ +-------+---+---+ +-------+ +-------+---+---+ | Given | 04/01/20 | 75 mg | | | | | 17 7:46 | | | | | | AM PDT | | | | +-------+ +-------+---+---+ | Given | 03/31/20 | 75 mg | | | | | 17 9:49 | | | | | | AM PDT | | | | +-------+ +-------+---+---+ +---+---+ | | | +---+---+ + + + + +-------+---+ | dexmedetomidine (PRECEDEX) 400 | Rate/Dos | 03/17/20 | 0.4 | 11.3 | | | mcg in NaCl 0.9 % 100 mL (4 | e Change | 17 3:03 | mcg/kg/h | mL/hr | | | mcg/mL) IV infusion 0.2-0.7 | | PM PDT | r | | | | mcg/kg/hr | | | | | | | 113 kg Dosing weight | | | | | | | (5.65-19.775 mL/hr, rounded to | | | | | | | 5.65-19.78 mL/hr), intravenous, | | | | | | | CONTINUOUS, Starting Thu03/17/17 | | | | | | | at 1430, Until Thu03/17/17 at | | | | | | | 1509 | | | | | | + + + + +-------+---+ +---------+ + +-------+---+ | New Bag | 03/17/20 | 0.3 | 8.48 | | | | 17 2:26 | mcg/kg/h | mL/hr | | | | PM PDT | r | | | +---------+ + +-------+---+ +---+---+ | | | +---+---+ + + + + +--------+---+ | dexmedetomidine (PRECEDEX) 400 | Rate/Dos | 03/17/20 | 0.7 | 19.78 | | | mcg in NaCl 0.9 % 100 mL (4 | e Change | 17 3:15 | mcg/kg/h | mL/hr | | | mcg/mL) IV infusion 0.2-0.7 | | PM PDT | r | | | | mcg/kg/hr | | | | | | | 113 kg Dosing weight | | | | | | | (5.65-19.775 mL/hr, rounded to | | | | | | | 5.65-19.78 mL/hr), intravenous, | | | | | | | CONTINUOUS, Starting Thu03/17/17 | | | | | | | at 1515, Until Thu03/17/17 at | | | | | | | 1622 | | | | | | + + + + +--------+---+ +---+---+ | | | +---+---+ + + + + +--------+---+ | dexmedetomidine (PRECEDEX) 400 | Rate/Dos | 03/17/20 | 1 | 28.25 | | | mcg in NaCl 0.9 % 100 mL (4 | e Verify | 17 5:00 | mcg/kg/h | mL/hr | | | mcg/mL) IV infusion 0.2-1.2 | | PM PDT | r | | | | mcg/kg/hr | | | | | | | 113 kg Dosing weight (5.65-33.9 | | | | | | | mL/hr), intravenous, CONTINUOUS, | | | | | | | Starting Thu03/17/17 at 1630, | | | | | | | Until Thu03/17/17 at 1712 | | | | | | + + + + +--------+---+ + + + +--------+---+ | Rate/Dose Change | 03/17/20 | 1 | 28.25 | | | | 17 4:22 | mcg/kg/h | mL/hr | | | | PM PDT | r | | | + + + +--------+---+ | Rate/Dose Change | 03/17/20 | 0.7 | 19.78 | | | | 17 4:00 | mcg/kg/h | mL/hr | | | | PM PDT | r | | | + + + +--------+---+ +---+---+ | | | +---+---+ + + + +---+ +---+ | dextrose 5%-NaCl 0.45% IV | Rate/Dos | 03/17/20 | | 25 mL/hr | | | infusion 5-400 mL, intravenous, | e Verify | 17 7:00 | | | | | NEEDED, Starting Thu03/15/17 at | | AM PDT | | | | | 1324, Until Thu03/27/17 at 1513, | | | | | | | recovery carbohydrates, per | | | | | | | [facility] Infusion Protocol. Give | | | | | | | the quantity of D5 recommended | | | | | | | per Endotool if the patient is | | | | | | | NPO. | | | | | | + + + +---+ +---+ + + +---+ +---+ | Rate/Dose Verify | 03/17/20 | | 25 mL/hr | | | | 17 6:00 | | | | | | AM PDT | | | | + + +---+ +---+ | Rate/Dose Verify | 03/17/20 | | 25 mL/hr | | | | 17 5:00 | | | | | | AM PDT | | | | + + +---+ +---+ +---+---+ | | | +---+---+ + + + +---------+---------+---+ | dextrose 5%-NaCl 0.45% IV | Rate/Dos | 03/27/20 | 5 mL/hr | 5 mL/hr | | | infusion 5 mL/hr, intravenous, | e Verify | 17 8:00 | | | | | CONTINUOUS, Starting Thu03/17/17 | | AM PDT | | | | | at 0930, Until Thu03/27/17 at | | | | | | | 1513 | | | | | | + + + +---------+---------+---+ + + +---------+---------+---+ | Rate/Dose Verify | 03/27/20 | 5 mL/hr | 5 mL/hr | | | | 17 5:03 | | | | | | AM PDT | | | | + + +---------+---------+---+ | Rate/Dose Verify | 03/26/20 | 5 mL/hr | 5 mL/hr | | | | 17 7:31 | | | | | | PM PDT | | | | + + +---------+---------+---+ +---+---+ | | | +---+---+ + + + +--------+---+---+ | dextrose 50 % in water IV | Bolus | 03/16/20 | 100 mL | | | | 15-150 mL 15-150 mL, | from | 17 4:34 | | | | | intravenous, NEEDED, Starting | Same Bag | AM PDT | | | | | 03/15/17 at 1324, Until Tue | | | | | | | 03/24/17 at 1123, hypoglycemia, | | | | | | | Per [facility] Infusion Protocol | | | | | | + + + +--------+---+---+ + +---+ | | | + +---+ | dextrose 50 % in water IV 25 mL | | | 25 mL, intravenous, NEEDED, | | | Starting 03/24/17 at 1120, | | | Until Radha 04/02/17 at 2031, CBG | | | less than 70 mg/dL if patient | | | unable to take PO, per Adult | | | Hypoglycemia Protocol | | + +---+ | | | + +---+ + + + + +-------+---+ | DOPamine (INOTROPIN) 800 mg/250 | Rate/Dos | 03/16/20 | 2 | 4.24 | | | mL (3.2 mg/mL) IV infusion (RTU) | e Verify | 17 4:00 | mcg/kg/m | mL/hr | | | 2 mcg/kg/min | | AM PDT | in | | | | 113 kg Order-specific weight | | | | | | | (4.2375 mL/hr, rounded to 4.24 | | | | | | | mL/hr), intravenous, CONTINUOUS, | | | | | | | Starting 03/15/17 at 1400, | | | | | | | Until 03/16/17 at 0423 | | | | | | + + + + +-------+---+ + + + +-------+---+ | Rate/Dose Verify | 03/16/20 | 2 | 4.24 | | | | 17 3:00 | mcg/kg/m | mL/hr | | | | AM PDT | in | | | + + + +-------+---+ | Rate/Dose Verify | 03/16/20 | 2 | 4.24 | | | | 17 2:00 | mcg/kg/m | mL/hr | | | | AM PDT | in | | | + + + +-------+---+ +---+---+ | | | +---+---+ + + + + +--------+---+ | EPINEPHrine (ADRENALIN) 5mg/250 | Rate/Dos | 03/16/20 | 0.05 | 16.95 | | | mL (0.02 mg/mL) IV infusion | e Verify | 17 11:00 | mcg/kg/m | mL/hr | | | (ADC) 0.05 mcg/kg/min | | AM PDT | in | | | | 113 kg Order-specific weight | | | | | | | (16.95 mL/hr), intravenous, | | | | | | | CONTINUOUS, Starting 03/15/17 | | | | | | | at 1245, Until 03/16/17 at | | | | | | | 1117 | | | | | | + + + + +--------+---+ + + + +--------+---+ | Rate/Dose Verify | 03/16/20 | 0.05 | 16.95 | | | | 17 10:02 | mcg/kg/m | mL/hr | | | | AM PDT | in | | | + + + +--------+---+ | Rate/Dose Verify | 03/16/20 | 0.05 | 16.95 | | | | 17 9:00 | mcg/kg/m | mL/hr | | | | AM PDT | in | | | + + + +--------+---+ +---+---+ | | | +---+---+ + + [...] | | +---+---+ + +-------+ +-------+---+---+ | eplerenone (INSPRA) tablet 25 | Given | 03/21/20 | 25 mg | | | | mg 25 mg, feeding tube, DAILY, | | 17 7:52 | | | | | First dose on [facility] 03/19/17 at | | AM PDT | | | | | 1530, Until Discontinued | | | | | | + +-------+ +-------+---+---+ +-------+ +-------+---+---+ | Given | 03/20/20 | 25 mg | | | | | 17 8:53 | | | | | | AM PDT | | | | +-------+ +-------+---+---+ | Given | 03/19/20 | 25 mg | | | | | 17 3:09 | | | | | | PM PDT | | | | +-------+ +-------+---+---+ +---+---+ | | | +---+---+ + +-------+ +-------+---+---+ | eplerenone (INSPRA) tablet 25 | Given | 03/21/20 | 25 mg | | | | mg 25 mg, feeding tube, ONCE, 1 | | 17 10:30 | | | | | dose, 03/21/17 at 1000 | | AM PDT | | | | + +-------+ +-------+---+---+ +---+---+ | | | +---+---+ + +-------+ +-------+---+---+ | eplerenone (INSPRA) tablet 50 | Given | 03/23/20 | 50 mg | | | | mg 50 mg, feeding tube, DAILY, | | 17 8:30 | | | | | First dose on 03/22/17 at | | AM PDT | | | | | 0900, Until Discontinued | | | | | | + +-------+ +-------+---+---+ +-------+ +-------+---+---+ | Given | 03/22/20 | 50 mg | | | | | 17 8:02 | | | | | | AM PDT | | | | +-------+ +-------+---+---+ +---+---+ | | | +---+---+ + +-------+ +-------+---+---+ | eplerenone (INSPRA) tablet 50 | Given | 03/30/20 | 50 mg | | | | mg 50 mg, oral, DAILY, First | | 17 9:32 | | | | | dose on Thu03/24/17 at 0900, | | AM PDT | | | | | Until Discontinued | | | | | | + +-------+ +-------+---+---+ +-------+ +-------+---+---+ | Given | 03/29/20 | 50 mg | | | | | 17 8:48 | | | | | | AM PDT | | | | +-------+ +-------+---+---+ | Given | 03/28/20 | 50 mg | | | | | 17 10:37 | | | | | | AM PDT | | | | +-------+ +-------+---+---+ +---+---+ | | | +---+---+ + +---------+ +-------+---+---+ | esomeprazole (NEXIUM) IV 40 mg | New Bag | 03/19/20 | 40 mg | | | | 40 mg, intravenous, DAILY, First | | 17 8:00 | | | | | dose on Thu03/18/17 at 1000, | | AM PDT | | | | | Until Discontinued | | | | | | + +---------+ +-------+---+---+ +---------+ +-------+---+---+ | New Bag | 03/18/20 | 40 mg | | | | | 17 11:00 | | | | | | AM PDT | | | | +---------+ +-------+---+---+ +---+---+ | | | +---+---+ + +-------+ +-------+---+---+ | famotidine (PEPCID) injection | Given | 03/16/20 | 20 mg | | | | 20 mg 20 mg, intravenous, TWICE | | 17 7:29 | | | | | DAILY, First dose on 03/15/17 | | AM PDT | | | | | at 1730, Until Discontinued | | | | | | + +-------+ +-------+---+---+ +-------+ +-------+---+---+ | Given | 03/15/20 | 20 mg | | | | | 17 8:00 | | | | | | PM PDT | | | | +-------+ +-------+---+---+ +---+---+ | | | +---+---+ + +-------+ +-------+---+---+ | famotidine (PEPCID) tablet 20 | Given | 03/17/20 | 20 mg | | | | mg 20 mg, feeding tube, TWICE | | 17 8:19 | | | | | DAILY, First dose on Thu03/16/17 | | AM PDT | | | | | at 2100, Until Discontinued | | | | | | + +-------+ +-------+---+---+ +-------+ +-------+---+---+ | Given | 03/16/20 | 20 mg | | | | | 17 8:32 | | | | | | PM PDT | | | | +-------+ +-------+---+---+ +---+---+ | | | +---+---+ + +-------+ +-------+---+---+ | famotidine (PEPCID) tablet 20 | Given | 03/23/20 | 20 mg | | | | mg 20 mg, feeding tube, TWICE | | 17 8:30 | | | | | DAILY, First dose on Thu03/19/17 | | AM PDT | | | | | at 2100, Until Discontinued | | | | | | + +-------+ +-------+---+---+ +-------+ +-------+---+---+ | Given | 03/22/20 | 20 mg | | | | | 17 9:40 | | | | | | PM PDT | | | | +-------+ +-------+---+---+ | Given | 03/22/20 | 20 mg | | | | | 17 8:01 | | | | | | AM PDT | | | | +-------+ +-------+---+---+ +---+---+ | | | +---+---+ + +-------+ +-------+---+---+ | famotidine (PEPCID) tablet 20 | Given | 04/02/20 | 20 mg | | | | mg 20 mg, oral, TWICE DAILY, | | 17 9:37 | | | | | First dose on Thu03/23/17 at | | AM PDT | | | | | 2100, Until Discontinued | | | | | | + +-------+ +-------+---+---+ +-------+ +-------+---+---+ | Given | 04/01/20 | 20 mg | | | | | 17 9:04 | | | | | | PM PDT | | | | +-------+ +-------+---+---+ | Given | 04/01/20 | 20 mg | | | | | 17 7:46 | | | | | | AM PDT | | | | +-------+ +-------+---+---+ +---+---+ | | | +---+---+ + + + +--------+---------+---+ | fentaNYL (SUBLIMAZE) 2500 | Rate/Dos | 03/17/20 | 50 | 5 mL/hr | | | mcg/250 mL (10 mcg/mL) IV | e Verify | 17 3:00 | mcg/hr | | | | infusion (RTU) 12.5-200 mcg/hr | | PM PDT | | | | | (1.25-20 mL/hr), intravenous, | | | | | | | CONTINUOUS, Starting 03/15/17 | | | | | | | at 1430, Until Thu03/17/17 at | | | | | | | 1354 | | | | | | + + + +--------+---------+---+ + + +--------+---------+---+ | Rate/Dose Verify | 03/17/20 | 50 | 5 mL/hr | | | | 17 2:00 | mcg/hr | | | | | PM PDT | | | | + + +--------+---------+---+ | Rate/Dose Verify | 03/17/20 | 50 | 5 mL/hr | | | | 17 1:00 | mcg/hr | | | | | PM PDT | | | | + + +--------+---------+---+ +---+---+ | | | +---+---+ + + + +--------+---+---+ | fentaNYL (SUBLIMAZE) bolus from | Bolus | 03/17/20 | 50 mcg | | | | continuous infusion 50-100 mcg | from | 17 10:40 | | | | | intravenous, EVERY 30 MINUTES | Same Bag | AM PDT | | | | | NEEDED, Starting 03/15/17 at | | | | | | | 1354, Until Thu03/17/17 at 1530, | | | | | | | CPOT not at goal | | | | | | + + + +--------+---+---+ + + +--------+---+---+ | Bolus from Same Bag | 03/17/20 | 50 mcg | | | | | 17 8:56 | | | | | | AM PDT | | | | + + +--------+---+---+ | Bolus from Same Bag | 03/17/20 | 50 mcg | | | | | 17 8:03 | | | | | | AM PDT | | | | + + +--------+---+---+ +---+---+ | | | +---+---+ + +-------+ + +---+---+ | fentaNYL (SUBLIMAZE) injection | Given | 03/30/20 | 12.5 mcg | | | | intravenous, INTRAPROCEDURE PRN, | | 17 4:29 | | | | | Starting Thu03/30/17 at 042, | | AM PDT | | | | | Until Thu03/30/17 at 428 | | | | | | + +-------+ + +---+---+ +---+---+ | | | +---+---+ + +-------+ +--------+---+---+ | fentaNYL (SUBLIMAZE) injection | Given | 03/30/20 | 25 mcg | | | | intravenous, INTRAPROCEDURE PRN, | | 17 4:15 | | | | | Starting Thu03/30/17 at 0415, | | AM PDT | | | | | Until Thu03/30/17 at 414 | | | | | | + +-------+ +--------+---+---+ +---+---+ | | | +---+---+ + +-------+ + +---+---+ | fentaNYL (SUBLIMAZE) injection | Given | 03/30/20 | 12.5 mcg | | | | intravenous, INTRAPROCEDURE PRN, | | 17 4:26 | | | | | Starting Thu03/30/17 at 0426, | | AM PDT | | | | | Until Thu03/30/17 at 425 | | | | | | + +-------+ + +---+---+ +---+---+ | | | +---+---+ + + + + + +---+ | furosemide (LASIX) 100 mg in | Rate/Dos | 03/24/20 | 10 mg/hr | 10 mL/hr | | | NaCl 0.9 % 100 mL (1 mg/mL) IV | e Verify | 17 9:00 | | | | | infusion 10 mg/hr (10 mL/hr), | | AM PDT | | | | | intravenous, CONTINUOUS, Starting | | | | | | | 03/22/17 at 0300, Until Tue | | | | | | | 03/24/17 at 0946 | | | | | | + + + + + +---+ + + + + +---+ | Rate/Dose Verify | 03/24/20 | 10 mg/hr | 10 mL/hr | | | | 17 8:00 | | | | | | AM PDT | | | | + + + + +---+ | Rate/Dose Verify | 03/24/20 | 10 mg/hr | 10 mL/hr | | | | 17 7:17 | | | | | | AM PDT | | | | + + + + +---+ +---+---+ | | | +---+---+ + + + + +---------+---+ | furosemide (LASIX) 250 mg in | Rate/Dos | 03/21/20 | 10 mg/hr | 2 mL/hr | | | NaCl 0.9 % 50 mL (5 mg/mL) IV | e Verify | 17 7:27 | | | | | infusion 10 mg/hr (2 mL/hr), | | PM PDT | | | | | intravenous, CONTINUOUS, Starting | | | | | | | 03/21/17 at 1830, Until Sat | | | | | | | 03/21/17 at 2253 | | | | | | + + + + +---------+---+ + + + +---------+---+ | Rate/Dose Verify | 03/21/20 | 10 mg/hr | 2 mL/hr | | | | 17 7:00 | | | | | | PM PDT | | | | + + + +---------+---+ | New Bag | 03/21/20 | 10 mg/hr | 2 mL/hr | | | | 17 6:46 | | | | | | PM PDT | | | | + + + +---------+---+ +---+---+ | | | +---+---+ + + + +---------+---------+---+ | furosemide (LASIX) 250 mg in | Rate/Dos | 03/25/20 | 5 mg/hr | 1 mL/hr | | | NaCl 0.9 % 50 mL (5 mg/mL) IV | e Verify | 17 7:37 | | | | | infusion 5 mg/hr (1 mL/hr), | | PM PDT | | | | | intravenous, CONTINUOUS, Starting | | | | | | | 03/24/17 at 1000, Until Wed | | | | | | | 03/25/17 at 2000 | | | | | | + + + +---------+---------+---+ + + +---------+---------+---+ | Rate/Dose Verify | 03/25/20 | 5 mg/hr | 1 mL/hr | | | | 17 4:00 | | | | | | PM PDT | | | | + + +---------+---------+---+ | Rate/Dose Verify | 03/25/20 | 5 mg/hr | 1 mL/hr | | | | 17 3:00 | | | | | | PM PDT | | | | + + +---------+---------+---+ +---+---+ | | | +---+---+ + +-------+ +-------+---+---+ | furosemide (LASIX) injection 20 | Given | 03/18/20 | 20 mg | | | | mg 20 mg, intravenous, ONCE, 1 | | 17 4:00 | | | | | dose, 03/18/17 at 1615 | | PM PDT | | | | + +-------+ +-------+---+---+ +---+---+ | | | +---+---+ + +-------+ +-------+---+---+ | furosemide (LASIX) injection 20 | Given | 03/19/20 | 20 mg | | | | mg 20 mg, intravenous, ONCE, 4:45 | | | | | dose, [facility] 03/19/17 at 1630 | | PM PDT | | | | + +-------+ +-------+---+---+ +---+---+ | | | +---+---+ + +-------+ +-------+---+---+ | furosemide (LASIX) injection 20 | Given | 03/20/20 | 20 mg | | | | mg 20 mg, intravenous, ONCE, 3:07 | | | | | dose, [facility] 03/20/17 at 0400 | | AM PDT | | | | + +-------+ +-------+---+---+ +---+---+ | | | +---+---+ + +-------+ +-------+---+---+ | furosemide (LASIX) injection 20 | Given | 03/20/20 | 20 mg | | | | mg 20 mg, intravenous, ONCE, | | 5:39 | | | | | dose, 03/20/17 at 1745 | | PM PDT | | | | + +-------+ +-------+---+---+ +---+---+ | | | +---+---+ + +-------+ +-------+---+---+ | furosemide (LASIX) injection 20 | Given | 03/21/20 | 20 mg | | | | mg 20 mg, intravenous, DAILY, | | 17 9:45 | | | | | First dose on 03/21/17 at | | AM PDT | | | | | 0930, Until Discontinued | | | | | | + +-------+ +-------+---+---+ +---+---+ | | | +---+---+ + +-------+ +-------+---+---+ | furosemide (LASIX) injection 40 | Given | 03/18/20 | 40 mg | | | | mg 40 mg, intravenous, ONCE, | | 17 8:53 | | | | | dose, 03/18/17 at 0830 | | AM PDT | | | | + +-------+ +-------+---+---+ +---+---+ | | | +---+---+ + +-------+ +-------+---+---+ | furosemide (LASIX) injection 40 | Given | 03/19/20 | 40 mg | | | | mg 40 mg, intravenous, ONCE, 10:20 | | | | | dose, Radha 03/19/17 at 1100 | | AM PDT | | | | + +-------+ +-------+---+---+ +---+---+ | | | +---+---+ + +-------+ +-------+---+---+ | furosemide (LASIX) injection 40 | Given | 03/21/20 | 40 mg | | | | mg 40 mg, intravenous, ONCE, 12:56 | | | | | dose, 03/21/17 at 1230 | | PM PDT | | | | + +-------+ +-------+---+---+ +---+---+ | | | +---+---+ + +-------+ +-------+---+---+ | furosemide (LASIX) injection 40 | Given | 03/22/20 | 40 mg | | | | mg 40 mg, intravenous, ONCE, | | 4:12 | | | | | dose, 03/22/17 at 0400 | | AM PDT | | | | + +-------+ +-------+---+---+ +---+---+ | | | +---+---+ + +-------+ +-------+---+---+ | furosemide (LASIX) injection 60 | Given | 03/18/20 | 60 mg | | | | mg 60 mg, intravenous, ONCE, 1 | | 17 10:06 | | | | | dose, 03/18/17 at 2200 | | PM PDT | | | | + +-------+ +-------+---+---+ +---+---+ | | | +---+---+ + +-------+ +-------+---+---+ | furosemide (LASIX) injection 60 | Given | 03/21/20 | 60 mg | | | | mg 60 mg, intravenous, ONCE, 1 | | 17 6:46 | | | | | dose, 03/21/17 at 1900 | | PM PDT | | | | + +-------+ +-------+---+---+ +---+---+ | | | +---+---+ + +-------+ +-------+---+---+ | furosemide (LASIX) injection 60 | Given | 03/27/20 | 60 mg | | | | mg 60 mg, intravenous, TWICE | | 17 9:41 | | | | | DAILY (DIURETIC), First dose on | | AM PDT | | | | | Radha 03/26/17 at 0800, Until | | | | | | | Discontinued | | | | | | + +-------+ +-------+---+---+ +-------+ +-------+---+---+ | Given | 03/26/20 | 60 mg | | | | | 17 4:54 | | | | | | PM PDT | | | | +-------+ +-------+---+---+ | Given | 03/26/20 | 60 mg | | | | | 17 9:29 | | | | | | AM PDT | | | | +-------+ +-------+---+---+ + +---+ | | | + +---+ | furosemide (LASIX) injection 1 | | | dose, Starting 03/21/17 at | | | 0920, Until 03/21/17 at 0945 | | + +---+ | | | + +---+ | glucagon (GLUCAGEN) injection 1 | | | mg 1 mg, intramuscular, | | | NEEDED, Starting 03/24/17 at | | | 1120, Until Radha 04/02/17 at 2030, | | | CBG less than 70 mg/dL per Adult | | | Hypoglycemia Protocol | | + +---+ | | | + +---+ | glucose chewable tablet 16 g | | | 16 g, oral, NEEDED, Starting | | | 03/24/17 at 1120, Until Radha | | | 04/02/17 at 2030, CBG less than 70 | | | mg/dL per Adult Hypoglycemia | | | Protocol | | + +---+ | | | + +---+ + +-------+ + +---+---+ | guar gum (BENEFIBER) oral | Given | 03/25/20 | 1 packet | | | | powder 1 packet 1 packet, | | 17 2:07 | | | | | feeding tube, FOUR TIMES DAILY, | | PM PDT | | | | | First dose on Thu03/20/17 at | | | | | | | 1400, Until Discontinued | | | | | | + +-------+ + +---+---+ +-------+ + +---+---+ | Given | 03/25/20 | 1 packet | | | | | 17 8:54 | | | | | | AM PDT | | | | +-------+ + +---+---+ | Given | 03/24/20 | 1 packet | | | | | 17 8:43 | | | | | | PM PDT | | | | +-------+ + +---+---+ +---+---+ | | | +---+---+ + + + +--------+---+---+ | heparin bolus from continuous | Bolus | 03/16/20 | 4,500 | | | | infusion 4,500 Units | from | 17 8:58 | Units | | | | intravenous, BOLUS PRN, Starting | Same Bag | PM PDT | | | | | 03/15/17 at 1404, Until Tue | | | | | | | 03/17/17 at 0913, heparin level | | | | | | | 0.1-0.21 units/mL | | | | | | + + + +--------+---+---+ +---+---+ | | | +---+---+ + + + + + +---+ | heparin in D5W 25,000 Units/250 | Rate/Dos | 03/17/20 | 1,500 | 15 mL/hr | | | mL (100 Units/mL) IV infusion | e Verify | 17 8:00 | Units/hr | | | | (RTU) 1-2,500 Units/hr (0.01-25 | | AM PDT | | | | | mL/hr), intravenous, CONTINUOUS, | | | | | | | Starting 03/15/17 at 1445, | | | | | | | Until 03/17/17 at 0913 | | | | | | + + + + + +---+ + + + + +---+ | Rate/Dose Verify | 03/17/20 | 1,500 | 15 mL/hr | | | | 17 7:26 | Units/hr | | | | | AM PDT | | | | + + + + +---+ | Rate/Dose Verify | 03/17/20 | 1,500 | 15 mL/hr | | | | 17 7:00 | Units/hr | | | | | [...] +---+---+ + + + + +-------+---+ | heparin in D5W 25,000 Units/250 | Rate/Dos | 03/29/20 | 1,850 | 18.5 | | | mL (100 Units/mL) IV infusion | e Change | 17 3:58 | Units/hr | mL/hr | | | (RTU) 1-2,500 Units/hr (0.01-25 | | PM PDT | | | | | mL/hr), intravenous, CONTINUOUS, | | | | | | | Starting [facility] 03/19/17 at 1900, | | | | | | | Until 03/29/17 at 1628 | | | | | | + + + + +-------+---+ + + + +-------+---+ | New Bag | 03/29/20 | 1,950 | 19.5 | | | | 17 10:11 | Units/hr | mL/hr | | | | AM PDT | | | | + + + +-------+---+ | Rate/Dose Change | 03/29/20 | 1,950 | 19.5 | | | | 17 8:17 | Units/hr | mL/hr | | | | AM PDT | | | | + + + +-------+---+ +---+---+ | | | +---+---+ + +---------+ + + +---+ | heparin in D5W 25,000 Units/250 | New Bag | 03/30/20 | 1,000 | 10 mL/hr | | | mL (100 Units/mL) IV infusion | | 17 3:39 | Units/hr | | | | (RTU) 1-2,500 Units/hr (0.01-25 | | AM PDT | | | | | mL/hr), intravenous, CONTINUOUS, | | | | | | | Starting Thu03/30/17 at 0330, | | | | | | | Until Thu03/30/17 at 0435 | | | | | | + +---------+ + + +---+ +---+---+ | | | +---+---+ + +-------+ +------+---+---+ | HYDROmorphone (DILAUDID) | Given | 03/18/20 | 1 mg | | | | injection 0.5-1.5 mg 0.5-1.5 mg, | | 17 7:36 | | | | | intravenous, EVERY 2 HOURS | | AM PDT | | | | | NEEDED, Starting Tu03/17/17 at | | | | | | | 1352, Until Thu03/18/17 at 0858, | | | | | | | severe pain | | | | | | + +-------+ +------+---+---+ +-------+ +--------+---+---+ | Given | 03/18/20 | 0.5 mg | | | | | 17 6:29 | | | | | | AM PDT | | | | +-------+ +--------+---+---+ | Given | 03/18/20 | 0.5 mg | | | | | 17 6:02 | | | | | | AM PDT | | | | +-------+ +--------+---+---+ +---+---+ | | | +---+---+ + +-------+ +------+---+---+ | HYDROmorphone (DILAUDID) | Given | 03/23/20 | 1 mg | | | | injection 0.5-1.5 mg 0.5-1.5 mg, | | 17 6:00 | | | | | intravenous, EVERY 30 MINUTES | | PM PDT | | | | | NEEDED, Starting Thu03/18/17 at | | | | | | | 0900, Until Thu03/23/17 at 2055, | | | | | | | severe pain | | | | | | + +-------+ +------+---+---+ +-------+ +------+---+---+ | Given | 03/23/20 | 1 mg | | | | | 17 3:39 | | | | | | PM PDT | | | | +-------+ +------+---+---+ | Given | 03/23/20 | 1 mg | | | | | 17 1:13 | | | | | | PM PDT | | | | +-------+ +------+---+---+ +---+---+ | | | +---+---+ + +-------+ +------+---+---+ | HYDROmorphone (DILAUDID) | Given | 03/25/20 | 1 mg | | | | injection 0.5-1.5 mg 0.5-1.5 mg, | | 17 4:24 | | | | | intravenous, EVERY 4 HOURS | | AM PDT | | | | | NEEDED, Starting Thu03/23/17 at | | | | | | | 2100, Until Thu17 at 1443, | | | | | | | severe pain | | | | | | + +-------+ +------+---+---+ +-------+ +--------+---+---+ | Given | 03/25/20 | 0.5 mg | | | | | 17 12:29 | | | | | | AM PDT | | | | +-------+ +--------+---+---+ +---+---+ | | | +---+---+ + +-------+ +---------+---+---------+ | insulin lispro (HUMALOG) | Given | 03/27/20 | 1 Units | | Abdomen | | injection 1 Units 1 Units, | | 17 7:57 | | | | | subcutaneous, THREE TIMES DAILY | | PM PDT | | | | | WITH MEALS, First dose on Thu | | | | | | | 03/24/17 at 1315, Until | | | | | | | Discontinued | | | | | | + +-------+ +---------+---+---------+ +-------+ +---------+---+ + | Given | 03/27/20 | 1 Units | | Left Arm | | | 17 9:41 | | | | | | AM PDT | | | | +-------+ +---------+---+ + | Given | 03/26/20 | 1 Units | | Abdomen | | | 17 9:31 | | | | | | AM PDT | | | | +-------+ +---------+---+ + +---+---+ | | | +---+---+ + +-------+ +---------+---+---------+ | insulin lispro (HUMALOG) | Given | 03/27/20 | 2 Units | | Abdomen | | injection subcutaneous, FOUR | | 17 7:56 | | | | | TIMES DAILY, First dose on Thu | | PM PDT | | | | | 03/24/17 at 1315, Until | | | | | | | Discontinued | | | | | | + +-------+ +---------+---+---------+ +-------+ +---------+---+---------+ | Given | 03/26/20 | 1 Units | | Abdomen | | | 17 10:09 | | | | | | PM PDT | | | | +-------+ +---------+---+---------+ | Given | 03/25/20 | 2 Units | | Abdomen | | | 17 8:56 | | | | | | AM PDT | | | | +-------+ +---------+---+---------+ +---+---+ | | | +---+---+ + +-------+ +---------+---+--------+ | insulin NPH (HUMULIN N) | Given | 04/02/20 | 2 Units | | Right | | injection 2 Units 2 Units, | | 17 10:49 | | | Arm | | subcutaneous, EVERY 12 HOURS, | | AM PDT | | | | | First dose on Thu03/24/17 at | | | | | | | 1145, Until Discontinued | | | | | | + +-------+ +---------+---+--------+ +-------+ +---------+---+ + | Given | 04/01/20 | 2 Units | | Left Arm | | | 17 9:04 | | | | | | PM PDT | | | | +-------+ +---------+---+ + | Given | 04/01/20 | 2 Units | | Left Arm | | | 17 10:03 | | | | | | AM PDT | | | | +-------+ +---------+---+ + +---+---+ | | | +---+---+ + + + + +---+---+ | insulin regular bolus from | Bolus | 03/16/20 | 12 Units | | | | continuous infusion 1-50 Units | from | 17 3:41 | | | | | 1-50 Units, intravenous, BOLUS | Same Bag | AM PDT | | | | | PRN, Starting 03/15/17 at 1324, | | | | | | | Until Tu03/24/17 at 1123, Per | | | | | | | EndoTool Infusion Protocol | | | | | | + + + + +---+---+ + + +---------+---+---+ | Bolus from Same Bag | 03/15/20 | 3 Units | | | | | 17 6:08 | | | | | | PM PDT | | | | + + +---------+---+---+ +---+---+ | | | +---+---+ + [...] | | +---+---+ + +-------+ +-------+---+---+ | iohexol (OMNIPAQUE) 300 mg | Given | 03/30/20 | 30 mL | | | | iodine/mL INTRAPROCEDURE PRN, | | 17 4:30 | | | | | Starting Thu03/30/17 at 0430, | | AM PDT | | | | | Until Thu03/30/17 at 0430 | | | | | | + +-------+ +-------+---+---+ +---+---+ | | | +---+---+ + +-------+ +------+---+---+ | ipratropium-albuterol (DUO-NEB) | Given | 03/24/20 | 3 mL | | | | nebulizer solution 3 mL 3 mL, | | 17 9:20 | | | | | inhalation, EVERY 6 HOURS, First | | PM PDT | | | | | dose on Thu03/17/17 at 1045, | | | | | | | Until Discontinued | | | | | | + +-------+ +------+---+---+ +-------+ +------+---+---+ | Given | 03/24/20 | 3 mL | | | | | 17 4:40 | | | | | | PM PDT | | | | +-------+ +------+---+---+ | Given | 03/23/20 | 3 mL | | | | | 17 9:43 | | | | | | PM PDT | | | | +-------+ +------+---+---+ +---+---+ | | | +---+---+ + +-------+ +-------+---+---+ | isosorbide mononitrate CR | Given | 04/02/20 | 30 mg | | | | (IMDUR) tablet 30 mg 30 mg, | | 17 9:37 | | | | | oral, DAILY, First dose on Thu | | AM PDT | | | | | 03/31/17 at 1345, Until | | | | | | | Discontinued | | | | | | + +-------+ +-------+---+---+ +-------+ +-------+---+---+ | Given | 04/01/20 | 30 mg | | | | | 17 7:46 | | | | | | AM PDT | | | | +-------+ +-------+---+---+ | Given | 03/31/20 | 30 mg | | | | | 17 1:26 | | | | | | PM PDT | | | | +-------+ +-------+---+---+ +---+---+ | | | +---+---+ + +---------+ + +---+---+ | lactated Ringers IV 1,000 mL, | New Bag | 03/15/20 | 1,000 mL | | | | intravenous, ONCE, 1 dose, Sun | | 17 3:30 | | | | | 03/15/17 at 1815 | | PM PDT | | | | + +---------+ + +---+---+ +---+---+ | | | +---+---+ + + + +--------+-------+---+ | lactated Ringers IV 500 mL, | Rate/Dos | 03/15/20 | 500 mL | 500 | | | intravenous, ONCE, 1 dose, Sun | e Change | 17 6:00 | | mL/hr | | | 03/15/17 at 1815 | | PM PDT | | | | + + + +--------+-------+---+ +---------+ +--------+---+---+ | New Bag | 03/15/20 | 500 mL | | | | | 17 5:40 | | | | | | PM PDT | | | | +---------+ +--------+---+---+ +---+---+ | | | +---+---+ + +---------+ +--------+---+---+ | lactated Ringers IV 500 mL, | New Bag | 03/16/20 | 500 mL | | | | intravenous, ONCE, 1 dose, Mon | | 17 12:15 | | | | | 03/16/17 at 0115 | | AM PDT | | | | + +---------+ +--------+---+---+ +---+---+ | | | +---+---+ + +---------+ +--------+---+---+ | lactated Ringers IV 250 mL, | New Bag | 03/16/20 | 250 mL | | | | intravenous, ONCE, 1 dose, Mon | | 17 6:21 | | | | | 03/16/17 at 1845 | | PM PDT | | | | + +---------+ +--------+---+---+ +---+---+ | | | +---+---+ + + + +--------+---+---+ | lactated Ringers IV 500 mL, | Restarte | 03/16/20 | 250 mL | | | | intravenous, ONCE, 1 dose, Joselitoe | d | 17 11:50 | | | | | 03/17/17 at 0000 | | PM PDT | | | | + + + +--------+---+---+ +---------+ +--------+---+---+ | New Bag | 03/16/20 | 250 mL | | | | | 17 11:38 | | | | | | PM PDT | | | | +---------+ +--------+---+---+ +---+---+ | | | +---+---+ + +---------+ +--------+---+---+ | lactated Ringers IV 250 mL, | New Bag | 03/17/20 | 250 mL | | | | intravenous, ONCE, 1 dose, Thu | | 17 9:21 | | | | | 03/17/17 at 0930 | | AM PDT | | | | + +---------+ +--------+---+---+ +---+---+ | | | +---+---+ + + + +---------+---+ + | lidocaine (LIDODERM) 5 % patch | Applied | 03/25/20 | 2 | | Lower | | 2 patch 2 patch, transdermal, | Patch | 17 8:58 | patches | | Extremit | | EVERY 24 HOURS, First dose on Thu | | AM PDT | | | y | | 03/24/17 at 0730, Until | | | | | | | Discontinued | | | | | | + + + +---------+---+ + + + +---------+---+ + | Applied Patch | 03/24/20 | 2 | | Left Mid | | | 17 9:08 | patches | | Back | | | AM PDT | | | | + + +---------+---+ + +---+---+ | | | +---+---+ + +-------+ +-------+---+---+ | lidocaine (XYLOCAINE) 10 mg/mL | Given | 03/30/20 | 10 mL | | | | (1 %) injection infiltration, | | 17 4:13 | | | | | INTRAPROCEDURE PRN, Starting Mon | | AM PDT | | | | | 03/30/17 at 412, Until Mon | | | | | | | 03/30/17 at 412 | | | | | | + +-------+ +-------+---+---+ +---+---+ | | | +---+---+ + +-------+ +---+---+---+ | lidocaine (XYLOCAINE) 5 % | Given | 03/30/20 | | | | | ointment topical, NEEDED, | | 17 9:31 | | | | | Starting 03/28/17 at 0928, | | AM PDT | | | | | Until [facility] 04/02/17 at 2030, | | | | | | | moderate pain, left groin | | | | | | + +-------+ +---+---+---+ +-------+ +---+---+---+ | Given | 03/29/20 | | | | | | 17 11:39 | | | | | | PM PDT | | | | +-------+ +---+---+---+ | Given | 03/29/20 | | | | | | 17 1:51 | | | | | | PM PDT | | | | +-------+ +---+---+---+ +---+---+ | | | +---+---+ + +-------+ +------+---+---+ | lisinopril (PRINIVIL) tablet 5 | Given | 03/30/20 | 5 mg | | | | mg 5 mg, oral, TWICE DAILY, | | 17 9:32 | | | | | First dose on Thu03/27/17 at | | AM PDT | | | | | 0900, Until Discontinued | | | | | | + +-------+ +------+---+---+ +-------+ +------+---+---+ | Given | 03/29/20 | 5 mg | | | | | 17 9:49 | | | | | | PM PDT | | | | +-------+ +------+---+---+ | Given | 03/29/20 | 5 mg | | | | | 17 8:47 | | | | | | AM PDT | | | | +-------+ +------+---+---+ +---+---+ | | | +---+---+ + +-------+ +------+---+---+ | lisinopril (PRINIVIL) tablet 5 | Given | 04/02/20 | 5 mg | | | | mg 5 mg, oral, DAILY, First dose | | 17 9:37 | | | | | on Thu03/31/17 at 1345, Until | | AM PDT | | | | | Discontinued | | | | | | + +-------+ +------+---+---+ +-------+ +------+---+---+ | Given | 04/01/20 | 5 mg | | | | | 17 7:46 | | | | | | AM PDT | | | | +-------+ +------+---+---+ | Given | 03/31/20 | 5 mg | | | | | 17 1:26 | | | | | | PM PDT | | | | +-------+ +------+---+---+ +---+---+ | | | +---+---+ + +---------+ +-----+---+---+ | magnesium sulfate in water IV | New Bag | 03/15/20 | 2 g | | | | (RTU) 2 g 2 g, intravenous, | | 17 7:00 | | | | | ONCE, 1 dose, [place] 03/15/17 at 1815 | | PM PDT | | | | + +---------+ +-----+---+---+ +---+---+ | | | +---+---+ + +---------+ +-----+---+---+ | magnesium sulfate in water IV | New Bag | 03/18/20 | 2 g | | | | (RTU) 2 g 2 g, intravenous, | | 17 6:39 | | | | | NEEDED, Starting Thu03/17/17 at | | AM PDT | | | | | 0906, Until Thu03/18/17 at 0858, | | | | | | | magnesium level 1.6 - 2 mg/dL or | | | | | | | shivering | | | | | | + +---------+ +-----+---+---+ +---------+ +-----+---+---+ | New Bag | 03/17/20 | 2 g | | | | | 17 9:20 | | | | | | AM PDT | | | | +---------+ +-----+---+---+ +---+---+ | | | +---+---+ + +-------+ +------+---+---+ | melatonin tablet 3 mg 3 mg, | Given | 03/22/20 | 3 mg | | | | feeding tube, EVERY EVENING, | | 17 9:40 | | | | | First dose on Thu03/20/17 at | | PM PDT | | | | | 2100, Until Discontinued | | | | | | + +-------+ +------+---+---+ +-------+ +------+---+---+ | Given | 03/21/20 | 3 mg | | | | | 17 9:56 | | | | | | PM PDT | | | | +-------+ +------+---+---+ | Given | 03/20/20 | 3 mg | | | | | 17 8:47 | | | | | | PM PDT | | | | +-------+ +------+---+---+ +---+---+ | | | +---+---+ + +-------+ +------+---+---+ | melatonin tablet 3 mg 3 mg, | Given | 04/01/20 | 3 mg | | | | oral, EVERY EVENING, First dose | | 17 9:03 | | | | | on Thu03/23/17 at 2100, Until | | PM PDT | | | | | Discontinued | | | | | | + +-------+ +------+---+---+ +-------+ +------+---+---+ | Given | 03/31/20 | 3 mg | | | | | 17 9:16 | | | | | | PM PDT | | | | +-------+ +------+---+---+ | Given | 03/30/20 | 3 mg | | | | | 17 9:12 | | | | | | PM PDT | | | | +-------+ +------+---+---+ +---+---+ | | | +---+---+ + +-------+ +-------+---+---+ | metoprolol succinate | Given | 03/30/20 | 25 mg | | | | (TOPROL-XL) tablet 25 mg 25 mg, | | 17 12:00 | | | | | oral, DAILY, First dose on [place] | | PM PDT | | | | | 03/26/17 at 0900, Until | | | | | | | Discontinued | | | | | | + +-------+ +-------+---+---+ +-------+ +-------+---+---+ | Given | 03/29/20 | 25 mg | | | | | 17 8:46 | | | | | | AM PDT | | | | +-------+ +-------+---+---+ | Given | 03/28/20 | 25 mg | | | | | 17 10:36 | | | | | | AM PDT | | | | +-------+ +-------+---+---+ +---+---+ | | | +---+---+ + +-------+ +-------+---+---+ | metoprolol succinate | Given | 04/02/20 | 25 mg | | | | (TOPROL-XL) tablet 25 mg 25 mg, | | 17 9:37 | | | | | oral, DAILY, First dose on Thu | | AM PDT | | | | | 03/31/17 at 0900, Until | | | | | | | Discontinued | | | | | | + +-------+ +-------+---+---+ +-------+ +-------+---+---+ | Given | 04/01/20 | 25 mg | | | | | 17 7:48 | | | | | | AM PDT | | | | +-------+ +-------+---+---+ | Given | 03/31/20 | 25 mg | | | | | 17 9:50 | | | | | | AM PDT | | | | +-------+ +-------+---+---+ +---+---+ | | | +---+---+ + +-------+ +---------+---+---+ | metoprolol tartrate (LOPRESSOR) | Given | 03/25/20 | 6.25 mg | | | | tablet 6.25 mg 6.25 mg, oral, | | 17 8:58 | | | | | TWICE DAILY, 6 doses, First dose | | PM PDT | | | | | on Thu03/23/17 at 1145, Last dose | | | | | | | on Thu03/25/17 at 2100 | | | | | | + +-------+ +---------+---+---+ +-------+ +---------+---+---+ | Given | 03/25/20 | 6.25 mg | | | | | 17 8:54 | | | | | | AM PDT | | | | +-------+ +---------+---+---+ | Given | 03/24/20 | 6.25 mg | | | | | 17 8:51 | | | | | | PM PDT | | | | +-------+ +---------+---+---+ +---+---+ | | | +---+---+ + +-------+ +------+---+---+ | midazolam (PF) (VERSED) | Given | 03/16/20 | 2 mg | | | | injection 2 mg 2 mg, | | 17 5:46 | | | | | intravenous, ONCE, 1 dose, Mon | | AM PDT | | | | | 03/16/17 at 0615 | | | | | | + +-------+ +------+---+---+ +---+---+ | | | +---+---+ + +-------+ +------+---+---+ | midazolam (PF) (VERSED) | Given | 03/15/20 | 2 mg | | | | injection 1 dose, Starting Sun | | 17 1:50 | | | | | 03/15/17 at 1346, Until 03/15/17 | | PM PDT | | | | | at 1350 | | | | | | + +-------+ +------+---+---+ +---+---+ | | | +---+---+ + +-------+ +------+---+---+ | midazolam (PF) (VERSED) | Given | 03/30/20 | 1 mg | | | | injection INTRAPROCEDURE PRN, | | 17 4:15 | | | | | Starting 03/30/17 at 0415, | | AM PDT | | | | | Until Thu03/30/17 at 0415 | | | | | | + +-------+ +------+---+---+ +---+---+ | | | +---+---+ + + + + +-------+---+ | milrinone (PRIMACOR) 20 mg/100 | Rate/Dos | 03/17/20 | 0.125 | 4.24 | | | mL (0.2 mg/mL) IV infusion (RTU) | e Verify | 17 5:00 | mcg/kg/m | mL/hr | | | 0.125 mcg/kg/min | | PM PDT | in | | | | 113 kg Dosing weight (4.2375 | | | | | | | mL/hr, rounded to 4.24 mL/hr), | | | | | | | intravenous, CONTINUOUS, Starting | | | | | | | 03/17/17 at 1515, Until Thu | | | | | | | 03/17/17 at 1746 | | | | | | + + + + +-------+---+ + + + +-------+---+ | Rate/Dose Verify | 03/17/20 | 0.125 | 4.24 | | | | 17 4:00 | mcg/kg/m | mL/hr | | | | PM PDT | in | | | + + + +-------+---+ | New Bag | 03/17/20 | 0.125 | 4.24 | | | | 17 3:03 | mcg/kg/m | mL/hr | | | | PM PDT | in | | | + + + +-------+---+ +---+---+ | | | +---+---+ + + + + +-------+---+ | norepinephrine (LEVOPHED) | Rate/Dos | 03/15/20 | 0.02 | 4.24 | | | 8mg/250 mL (0.032 mg/mL) IV | e Change | 17 6:00 | mcg/kg/m | mL/hr | | | infusion (RTU) 0.02-0.2 | | PM PDT | in | | | | mcg/kg/min | | | | | | | 113 kg Order-specific weight | | | | | | | (4.2375-42.375 mL/hr, rounded to | | | | | | | 4.24-42.38 mL/hr), intravenous, | | | | | | | CONTINUOUS, Starting Thu03/15/17 | | | | | | | at 1330, Until Thu03/20/17 at | | | | | | | 1249 | | | | | | + + + + +-------+---+ + + + +-------+---+ | Rate/Dose Verify | 03/15/20 | 0.04 | 8.48 | | | | 17 5:10 | mcg/kg/m | mL/hr | | | | PM PDT | in | | | + + + +-------+---+ | Rate/Dose Change | 03/15/20 | 0.02 | 4.24 | | | | 17 2:00 | mcg/kg/m | mL/hr | | | | PM PDT | in | | | + + + +-------+---+ +---+---+ | | | +---+---+ + +-------+ +---+---+---+ | nystatin (MYCOSTATIN) powder | Given | 04/01/20 | | | | | topical, TWICE DAILY, First dose | | 17 9:03 | | | | | on 03/28/17 at 1530, Until | | PM PDT | | | | | Discontinued | | | | | | + +-------+ +---+---+---+ +-------+ +---+---+---+ | Given | 03/31/20 | | | | | | 17 9:20 | | | | | | PM PDT | | | | +-------+ +---+---+---+ | Given | 03/30/20 | | | | | | 17 9:14 | | | | | | PM PDT | | | | +-------+ +---+---+---+ +---+---+ | | | +---+---+ + +-------+ +-------+---+---+ | oxyCODONE (immediate release) | Given | 03/22/20 | 10 mg | | | | (ROXICODONE) liquid 10 mg 10 mg, | | 17 6:15 | | | | | feeding tube, EVERY 8 HOURS, | | AM PDT | | | | | First dose on 03/21/17 at | | | | | | | 1400, Until Discontinued | | | | | | + +-------+ +-------+---+---+ +-------+ +-------+---+---+ | Given | 03/21/20 | 10 mg | | | | | 17 9:54 | | | | | | PM PDT | | | | +-------+ +-------+---+---+ | Given | 03/21/20 | 10 mg | | | | | 17 3:01 | | | | | | PM PDT | | | | +-------+ +-------+---+---+ +---+---+ | | | +---+---+ + +-------+ +-------+---+---+ | oxyCODONE (immediate release) | Given | 03/26/20 | 15 mg | | | | (ROXICODONE) liquid 10-15 mg | | 17 10:02 | | | | | 10-15 mg, oral, EVERY 3 HOURS | | AM PDT | | | | | NEEDED, Starting Radha 03/26/17 at | | | | | | | 0849, Until Radha 03/26/17 at 1017, | | | | | | | moderate pain, when unable to | | | | | | | take oral | | | | | | + +-------+ +-------+---+---+ +---+---+ | | | +---+---+ + +-------+ +-------+---+---+ | oxyCODONE (immediate release) | Given | 03/27/20 | 15 mg | | | | (ROXICODONE) liquid 10-15 mg | | 17 1:02 | | | | | 10-15 mg, oral, EVERY 3 HOURS | | PM PDT | | | | | NEEDED, Starting Radha 03/26/17 at | | | | | | | 1016, Until Thu03/27/17 at 1513, | | | | | | | moderate pain | | | | | | + +-------+ +-------+---+---+ +-------+ +-------+---+---+ | Given | 03/27/20 | 15 mg | | | | | 17 8:06 | | | | | | AM PDT | | | | +-------+ +-------+---+---+ | Given | 03/27/20 | 15 mg | | | | | 17 3:40 | | | | | | AM PDT | | | | +-------+ +-------+---+---+ +---+---+ | | | +---+---+ + +-------+ +-------+---+---+ | oxyCODONE (immediate release) | Given | 07/23/20 | 15 mg | | | | (ROXICODONE) liquid 10-15 mg | | 17 5:37 | | | | | 10-15 mg, oral, EVERY 6 HOURS | | AM PDT | | | | | NEEDED, Starting Thu03/27/17 at | | | | | | | 1515, Until 03/29/17 at 0956, | | | | | | | moderate pain | | | | | | + +-------+ +-------+---+---+ +-------+ +-------+---+---+ | Given | 03/28/20 | 15 mg | | | | | 17 11:52 | | | | | | PM PDT | | | | +-------+ +-------+---+---+ | Given | 03/28/20 | 15 mg | | | | | 17 6:07 | | | | | | PM PDT | | | | +-------+ +-------+---+---+ +---+---+ | | | +---+---+ + +-------+ +-------+---+---+ | oxyCODONE (immediate release) | Given | 03/21/20 | 10 mg | | | | (ROXICODONE) liquid 5-10 mg 5-10 | | 17 5:21 | | | | | mg, feeding tube, EVERY 3 HOURS | | AM PDT | | | | | NEEDED, Starting Radha 03/19/17 | | | | | | | at 1302, Until 03/21/17 at | | | | | | | 0929, moderate pain, when unable | | | | | | | to take oral | | | | | | + +-------+ +-------+---+---+ +-------+ +-------+---+---+ | Given | 03/20/20 | 10 mg | | | | | 17 10:32 | | | | | | PM PDT | | | | +-------+ +-------+---+---+ | Given | 03/20/20 | 10 mg | | | | | 17 6:43 | | | | | | PM PDT | | | | +-------+ +-------+---+---+ +---+---+ | | | +---+---+ + +-------+ +-------+---+---+ | oxyCODONE (immediate release) | Given | 03/26/20 | 10 mg | | | | (ROXICODONE) liquid 5-10 mg 5-10 | | 17 6:43 | | | | | mg, oral, EVERY 3 HOURS | | AM PDT | | | | | NEEDED, Starting 03/25/17 at | | | | | | | 1440, Until Thu03/26/17 at 0850, | | | | | | | moderate pain, when unable to | | | | | | | take oral | | | | | | + +-------+ +-------+---+---+ +-------+ +-------+---+---+ | Given | 03/26/20 | 10 mg | | | | | 17 3:42 | | | | | | AM PDT | | | | +-------+ +-------+---+---+ | Given | 03/26/20 | 10 mg | | | | | 17 12:54 | | | | | | AM PDT | | | | +-------+ +-------+---+---+ +---+---+ | | | +---+---+ + +-------+ +-------+---+---+ | oxyCODONE (immediate release) | Given | 03/25/20 | 10 mg | | | | (ROXICODONE) liquid 5-15 mg 5- | | 17 12:05 | | | | | mg, feeding tube, EVERY 3 HOURS | | PM PDT | | | | | NEEDED, Starting 03/21/17 | | | | | | | at 0917, Until 03/25/17 at | | | | | | | 1443, moderate pain, when unable | | | | | | | to take oral | | | | | | + +-------+ +-------+---+---+ +-------+ +-------+---+---+ | Given | 03/25/20 | 5 mg | | | | | 17 9:00 | | | | | | AM PDT | | | | +-------+ +-------+---+---+ | Given | 03/25/20 | 10 mg | | | | | 17 6:01 | | | | | | AM PDT | | | | +-------+ +-------+---+---+ +---+---+ | | | +---+---+ + +-------+ +-------+---+---+ | oxyCODONE (immediate release) | Given | 03/28/20 | 10 mg | | | | (ROXICODONE) tablet 10 mg 10 mg, | | 17 3:19 | | | | | oral, ONCE, 1 dose, 03/28/17 | | AM PDT | | | | | at 0345 | | | | | | + +-------+ +-------+---+---+ +---+---+ | | | +---+---+ + +-------+ +-------+---+---+ | oxyCODONE (immediate release) | Given | 04/02/20 | 10 mg | | | | (ROXICODONE) tablet 10 mg 10 mg, | | 17 1:38 | | | | | oral, EVERY 4 HOURS NEEDED, | | PM PDT | | | | | Starting 03/29/17 at 0954, | | | | | | | Until [facility] 04/02/17 at 2030, severe | | | | | | | pain | | | | | | + +-------+ +-------+---+---+ +-------+ +-------+---+---+ | Given | 04/02/20 | 10 mg | | | | | 17 9:37 | | | | | | AM PDT | | | | +-------+ +-------+---+---+ | Given | 04/02/20 | 10 mg | | | | | 17 5:10 | | | | | | AM PDT | | | | +-------+ +-------+---+---+ +---+---+ | | | +---+---+ + +-------+ +-------+---+---+ | oxyCODONE (immediate release) | Given | 03/19/20 | 15 mg | | | | (ROXICODONE) tablet 15 mg 15 mg, | | 17 8:00 | | | | | feeding tube, EVERY 4 HOURS, | | AM PDT | | | | | First dose on Thu03/18/17 at | | | | | | | 0000, Until Discontinued | | | | | | + +-------+ +-------+---+---+ +-------+ +-------+---+---+ | Given | 03/19/20 | 15 mg | | | | | 17 3:59 | | | | | | AM PDT | | | | +-------+ +-------+---+---+ | Given | 03/19/20 | 15 mg | | | | | 17 12:03 | | | | | | AM PDT | | | | +-------+ +-------+---+---+ +---+---+ | | | +---+---+ + +-------+ +------+---+---+ | oxyCODONE (immediate release) | Given | 03/20/20 | 5 mg | | | | (ROXICODONE) tablet 5-10 mg 5-10 | | 17 10:41 | | | | | mg, oral, EVERY 3 HOURS | | AM PDT | | | | | NEEDED, Starting Radha 03/19/17 at | | | | | | | 1302, Until 03/21/17 at 0929, | | | | | | | moderate pain | | | | | | + +-------+ +------+---+---+ +-------+ +------+---+---+ | Given | 03/20/20 | 5 mg | | | | | 17 8:53 | | | | | | AM PDT | | | | +-------+ +------+---+---+ +---+---+ | | | +---+---+ + +-------+ +-------+---+---+ | oxyCODONE (immediate release) | Given | 03/24/20 | 10 mg | | | | (ROXICODONE) tablet 5-10 mg 5-10 | | 17 10:00 | | | | | mg, oral, EVERY 3 HOURS | | PM PDT | | | | | NEEDED, Starting 03/21/17 at | | | | | | | 0917, Until 03/21/17 at 0932, | | | | | | | moderate pain | | | | | | + +-------+ +-------+---+---+ +---+---+ | | | +---+---+ + +-------+ +-------+---+---+ | oxyCODONE (immediate release) | Given | 03/17/20 | 15 mg | | | | (ROXICODONE) tablet 5-15 mg 5-15 | | 17 8:13 | | | | | mg, feeding tube, EVERY 3 HOURS | | PM PDT | | | | | NEEDED, Starting 03/17/17 | | | | | | | at 1352, Until 03/17/17 at | | | | | | | 2036, moderate pain | | | | | | + +-------+ +-------+---+---+ +-------+ +------+---+---+ | Given | 03/17/20 | 5 mg | | | | | 17 2:57 | | | | | | PM PDT | | | | +-------+ +------+---+---+ | Given | 03/17/20 | 5 mg | | | | | 17 2:16 | | | | | | PM PDT | | | | +-------+ +------+---+---+ +---+---+ | | | +---+---+ + +---------+ +-------+-------+---+ | pantoprazole (PROTONIX) IV 40 | | 03/17/20 | 40 mg | 200 | | | mg 40 mg, intravenous, TWICE | | 17 4:15 | | mL/hr | | | DAILY, First dose on Thu03/17/17 | | PM PDT | | | | | at 1530, Until Discontinued | | | | | | + +---------+ +-------+-------+---+ +---+---+ | | | +---+---+ + +---------+ +-------+---+---+ | piperacillin-tazobactam (ZOSYN) | | 03/15/20 | 4.5 g | | | | IV (minibag+) 4.5 g 4.5 g, | | 17 5:40 | | | | | intravenous, ONCE, 1 dose, Sun | | PM PDT | | | | | 03/15/17 at 1545 | | | | | | + +---------+ +-------+---+---+ +---+---+ | | | +---+---+ + +---------+ +---------+---+---+ | piperacillin-tazobactam (ZOSYN) | New Bag | 03/17/20 | 3.375 g | | | | IV 3.375 g 3.375 g, | | 17 5:54 | | | | | intravenous, EVERY 8 HOURS, First | | AM PDT | | | | | dose on 03/15/17 at 2200, | | | | | | | Until Discontinued | | | | | | + +---------+ +---------+---+---+ +---------+ +---------+---+---+ | New Bag | 03/16/20 | 3.375 g | | | | | 17 9:53 | | | | | | PM PDT | | | | +---------+ +---------+---+---+ | New Bag | 03/16/20 | 3.375 g | | | | | 17 2:32 | | | | | | PM PDT | | | | +---------+ +---------+---+---+ +---+---+ | | | +---+---+ + +---------+ +---------+---+---+ | piperacillin-tazobactam (ZOSYN) | New Bag | 03/22/20 | 3.375 g | | | | IV 3.375 g 3.375 g, | | 17 6:16 | | | | | intravenous, EVERY 8 HOURS, 13 | | AM PDT | | | | | doses, First dose on Thu03/18/17 | | | | | | | at 0700, Last dose on Thu03/22/17 | | | | | | | at 0700 | | | | | | + +---------+ +---------+---+---+ +---------+ +---------+---+---+ | New Bag | 03/21/20 | 3.375 g | | | | | 17 10:26 | | | | | | PM PDT | | | | +---------+ +---------+---+---+ | New Bag | 03/21/20 | 3.375 g | | | | | 17 3:02 | | | | | | PM PDT | | | | +---------+ +---------+---+---+ +---+---+ | | | +---+---+ + +---------+ +---+---+---+ | piperacillin-tazobactam (ZOSYN) | New Bag | 03/18/20 | | | | | IV 3.375 g 3.375 g, | | 17 12:58 | | | | | intravenous, ONCE, 1 dose, Wed | | AM PDT | | | | | 03/18/17 at 0100 | | | | | | + +---------+ +---+---+---+ +---+---+ | | | +---+---+ + +-------+ +------+---+---+ | polyethylene glycol (MIRALAX) | Given | 03/17/20 | 17 g | | | | packet 17 g 17 g, feeding tube, | | 17 8:20 | | | | | DAILY, First dose on Thu03/16/17 | | AM PDT | | | | | at 0900, Until Discontinued | | | | | | + +-------+ +------+---+---+ +-------+ +------+---+---+ | Given | 03/16/20 | 17 g | | | | | 17 8:14 | | | | | | AM PDT | | | | +-------+ +------+---+---+ +---+---+ | | | +---+---+ + +-------+ +------+---+---+ | polyethylene glycol (MIRALAX) | Given | 03/25/20 | 17 g | | | | packet 17 g 17 g, feeding tube, | | 17 8:54 | | | | | TWICE DAILY, First dose on Thu | | AM PDT | | | | | 03/18/17 at 0900, Until | | | | | | | Discontinued | | | | | | + +-------+ +------+---+---+ +-------+ +------+---+---+ | Given | 03/24/20 | 17 g | | | | | 17 8:43 | | | | | | PM PDT | | | | +-------+ +------+---+---+ | Given | 03/23/20 | 17 g | | | | | 17 10:02 | | | | | | PM PDT | | | | +-------+ +------+---+---+ +---+---+ | | | +---+---+ + +-------+ +------+---+---+ | polyethylene glycol (MIRALAX) | Given | 03/29/20 | 17 g | | | | packet 17 g 17 g, oral, TWICE | | 17 8:49 | | | | | DAILY, First dose on Thu03/25/17 | | AM PDT | | | | | at 2100, Until Discontinued | | | | | | + +-------+ +------+---+---+ +-------+ +------+---+---+ | Given | 03/28/20 | 17 g | | | | | 17 9:39 | | | | | | PM PDT | | | | +-------+ +------+---+---+ +---+---+ | | | +---+---+ + +-------+ +------+---+---+ | polyethylene glycol (MIRALAX) | Given | 03/29/20 | 34 g | | | | packet 34 g 34 g, oral, THREE | | 17 10:22 | | | | | TIMES DAILY NEEDED, Starting | | AM PDT | | | | | Thu03/25/17 at 1444, Until Radha | | | | | | | 04/02/17 at 2030, 1st line - for | | | | | | | no BM for 2 days | | | | | | + +-------+ +------+---+---+ +---+---+ | | | +---+---+ + +-------+ +--------+---+---+ | potassium chloride (KAOCHLOR) | Given | 03/24/20 | 20 mEq | | | | liquid 10% 20 mEq 20 mEq, oral, | | 17 9:08 | | | | | DAILY, First dose on Thu03/23/17 | | AM PDT | | | | | at 0900, Until Discontinued | | | | | | + +-------+ +--------+---+---+ +-------+ +--------+---+---+ | Given | 03/23/20 | 20 mEq | | | | | 17 8:30 | | | | | | AM PDT | | | | +-------+ +--------+---+---+ +---+---+ | | | +---+---+ + +-------+ +--------+---+---+ | potassium chloride (KAOCHLOR) | Given | 03/25/20 | 20 mEq | | | | liquid 10% 20 mEq 20 mEq, oral, | | 17 8:57 | | | | | TWICE DAILY, First dose on Thu | | PM PDT | | | | | 03/24/17 at 2100, Until | | | | | | | Discontinued | | | | | | + +-------+ +--------+---+---+ +-------+ +--------+---+---+ | Given | 03/25/20 | 20 mEq | | | | | 17 8:55 | | | | | | AM PDT | | | | +-------+ +--------+---+---+ | Given | 03/24/20 | 20 mEq | | | | | 17 8:42 | | | | | | PM PDT | | | | +-------+ +--------+---+---+ +---+---+ | | | +---+---+ + +-------+ +--------+---+---+ | potassium chloride (KAOCHLOR) | Given | 03/22/20 | 40 mEq | | | | liquid 10% 20-40 mEq 20-40 mEq, | | 17 4:10 | | | | | feeding tube, NEEDED, Starting | | AM PDT | | | | | 03/17/17 at 1712, Until Sun | | | | | | | 03/22/17 at 0927, hypokalemia per | | | | | | | protocol. If unable to take PO | | | | | | | potassium. See administration | | | | | | | instructions. | | | | | | + +-------+ +--------+---+---+ +-------+ +--------+---+---+ | Given | 03/21/20 | 40 mEq | | | | | 17 6:34 | | | | | | PM PDT | | | | +-------+ +--------+---+---+ | Given | 03/21/20 | 20 mEq | | | | | 17 7:46 | | | | | | AM PDT | | | | +-------+ +--------+---+---+ +---+---+ | | | +---+---+ + +-------+ +--------+---+---+ | potassium chloride (KAOCHLOR) | Given | 03/24/20 | 20 mEq | | | | liquid 10% 20-40 mEq 20-40 mEq, | | 17 6:00 | | | | | feeding tube, NEEDED, Starting | | PM PDT | | | | | 03/22/17 at 1346, Until Wed | | | | | | | 03/25/17 at 1443, hypokalemia per | | | | | | | protocol. If unable to take PO | | | | | | | potassium. See administration | | | | | | | instructions. | | | | | | + +-------+ +--------+---+---+ +-------+ +--------+---+---+ | Given | 03/24/20 | 40 mEq | | | | | 17 3:42 | | | | | | AM PDT | | | | +-------+ +--------+---+---+ | Given | 03/23/20 | 40 mEq | | | | | 17 3:38 | | | | | | PM PDT | | | | +-------+ +--------+---+---+ +---+---+ | | | +---+---+ + +-------+ +--------+---+---+ | potassium chloride (KAOCHLOR) | Given | 03/20/20 | 40 mEq | | | | liquid 10% 40 mEq 40 mEq, oral, | | 17 3:58 | | | | | ONCE, 1 dose, 03/20/17 at 0400 | | AM PDT | | | | + +-------+ +--------+---+---+ +---+---+ | | | +---+---+ + +-------+ +--------+---+---+ | potassium chloride (KAOCHLOR) | Given | 03/22/20 | 40 mEq | | | | liquid 10% 40 mEq 40 mEq, oral, | | 17 7:02 | | | | | ONCE, 1 dose, 03/22/17 at 1930 | | PM PDT | | | | + +-------+ +--------+---+---+ +---+---+ | | | +---+---+ + +-------+ +--------+---+---+ | potassium chloride (KLOR-CON) | Given | 03/21/20 | 40 mEq | | | | packet 40 mEq 40 mEq, feeding | | 17 10:30 | | | | | tube, ONCE, 1 dose, 03/21/17 | | AM PDT | | | | | at 1000 | | | | | | + +-------+ +--------+---+---+ +---+---+ | | | +---+---+ + +---------+ +--------+---+---+ | potassium chloride IV (CENTRAL | New Bag | 03/16/20 | 20 mEq | | | | LINE) 20 mEq 20 mEq, | | 17 1:37 | | | | | intravenous, ONCE, 1 dose, Mon | | AM PDT | | | | | 03/16/17 at 0145 | | | | | | + +---------+ +--------+---+---+ +---+---+ | | | +---+---+ + +---------+ +--------+---+---+ | potassium chloride IV (CENTRAL | New Bag | 03/21/20 | 20 mEq | | | | LINE) 20 mEq 20 mEq, | | 17 3:15 | | | | | intravenous, NEEDED, Starting | | AM PDT | | | | | 03/16/17 at 1416, Until Sun | | | | | | | 03/22/17 at 0927, hypokalemia. | | | | | | | Give if unable to tolerate PO/PFT | | | | | | | potassium or otherwise specified | | | | | | | in PO/PFT potassium order. See | | | | | | | administration instructions. | | | | | | + +---------+ +--------+---+---+ +---------+ +--------+---+---+ | New Bag | 03/20/20 | 20 mEq | | | | | 17 6:36 | | | | | | PM PDT | | | | +---------+ +--------+---+---+ | New Bag | 03/20/20 | 20 mEq | | | | | 17 1:50 | | | | | | PM PDT | | | | +---------+ +--------+---+---+ +---+---+ | | | +---+---+ + +---------+ +--------+---+---+ | potassium chloride IV (CENTRAL | New | 03/15/20 | 40 mEq | | | | LINE) 40 mEq 40 mEq, | | 17 1:00 | | | | | intravenous, ONCE, 1 dose, Sun | | PM PDT | | | | | 03/15/17 at 1230 | | | | | | + +---------+ +--------+---+---+ +---+---+ | | | +---+---+ + +---------+ +--------+---+---+ | potassium chloride IV (CENTRAL | New Bag | 03/15/20 | 40 mEq | | | | LINE) 40 mEq 40 mEq, | | 17 8:23 | | | | | intravenous, ONCE, 1 dose, Sun | | PM PDT | | | | | 03/15/17 at 1815 | | | | | | + +---------+ +--------+---+---+ +---+---+ | | | +---+---+ + +-------+ +--------+---+---+ | potassium chloride SR (K-DUR) | Given | 03/23/20 | 20 mEq | | | | tablet 20 mEq 20 mEq, oral, | | 17 3:53 | | | | | ONCE, 1 dose, 03/23/17 at 0415 | | AM PDT | | | | + +-------+ +--------+---+---+ +---+---+ | | | +---+---+ + +-------+ +--------+---+---+ | potassium chloride SR (K-DUR) | Given | 03/27/20 | 20 mEq | | | | tablet 20 mEq 20 mEq, oral, | | 17 9:42 | | | | | TWICE DAILY, First dose on Thu | | AM PDT | | | | | 03/26/17 at 1100, Until | | | | | | | Discontinued | | | | | | + +-------+ +--------+---+---+ +-------+ +--------+---+---+ | Given | 03/26/20 | 20 mEq | | | | | 17 9:45 | | | | | | PM PDT | | | | +-------+ +--------+---+---+ | Given | 03/26/20 | 20 mEq | | | | | 17 12:23 | | | | | | PM PDT | | | | +-------+ +--------+---+---+ +---+---+ | | | +---+---+ + +-------+ +--------+---+---+ | potassium chloride SR (K-DUR) | Given | 03/28/20 | 20 mEq | | | | tablet 20 mEq 20 mEq, oral, | | 17 10:37 | | | | | ONCE, 1 dose, 03/28/17 at 1000 | | AM PDT | | | | + +-------+ +--------+---+---+ +---+---+ | | | +---+---+ + +-------+ +--------+---+---+ | potassium chloride SR (K-DUR) | Given | 03/18/20 | 40 mEq | | | | tablet 40 mEq 40 mEq, oral, | | 17 10:05 | | | | | ONCE, 1 dose, Thu03/18/17 at 2300 | | PM PDT | | | | + +-------+ +--------+---+---+ +---+---+ | | | +---+---+ + + + +---+---+---+ | probiotic kefir (MARTIN'S KEFIR) | Given - | 03/23/20 | | | | | feeding tube, TWICE DAILY, | Food | 17 10:02 | | | | | First dose on Thu03/20/17 at | | PM PDT | | | | | 1345, Until Discontinued | | | | | | + + + +---+---+---+ + + +---+---+---+ | Given - Food | 03/23/20 | | | | | | 17 7:58 | | | | | | AM PDT | | | | + + +---+---+---+ | Given - Food | 03/22/20 | | | | | | 17 9:40 | | | | | | PM PDT | | | | + + +---+---+---+ +---+---+ | | | +---+---+ + + + +---+---+---+ | probiotic yogurt ([facility] | Given - | 03/28/20 | | | | | YOGURT) oral, TWICE DAILY, First | Food | 17 10:38 | | | | | dose on Thu03/24/17 at 0900, | | AM PDT | | | | | Until Discontinued | | | | | | + + + +---+---+---+ + + +--------+---+---+ | Given - Food | 03/26/20 | 1 each | | | | | 17 10:02 | | | | | | AM PDT | | | | + + +--------+---+---+ | Given - Food | 03/25/20 | | | | | | 17 8:58 | | | | | | AM PDT | | | | + + +--------+---+---+ +---+---+ | | | +---+---+ + + + +-------+---+---+ | propofol (DIPRIVAN) bolus from | Bolus | 03/18/20 | 20 mg | | | | continuous infusion 10-20 mg | from | 17 8:28 | | | | | intravenous, EVERY 15 MINUTES | Same Bag | AM PDT | | | | | NEEDED, Starting 03/15/17 at | | | | | | | 1551, Until Thu03/18/17 at 0907, | | | | | | | RASS greater than or equal to +2 | | | | | | | OR BSAS greater than +3 OR breath | | | | | | | stacking greater than 5 per | | | | | | | minute | | | | | | + + + +-------+---+---+ + + +-------+---+---+ | Bolus from Same Bag | 03/18/20 | 20 mg | | | | | 17 8:00 | | | | | | AM PDT | | | | + + +-------+---+---+ | Bolus from Same Bag | 03/17/20 | 10 mg | | | | | 17 6:15 | | | | | | PM PDT | | | | + + +-------+---+---+ +---+---+ | | | +---+---+ + + + +-------+---+---+ | propofol (DIPRIVAN) bolus from | Bolus | 03/21/20 | 10 mg | | | | continuous infusion 10-20 mg | from | 17 11:40 | | | | | intravenous, EVERY 15 MINUTES | Same Bag | PM PDT | | | | | NEEDED, Starting Thu03/18/17 at | | | | | | | 0906, Until Thu03/22/17 at 0927, | | | | | | | RASS greater than or equal to +2 | | | | | | | OR BSAS greater than or equal to | | | | | | | 2 OR breath stacking greater than | | | | | | | 5 per minute | | | | | | + + + +-------+---+---+ + + +-------+---+---+ | Bolus from Same Bag | 03/20/20 | 10 mg | | | | | 17 11:30 | | | | | | AM PDT | | | | + + +-------+---+---+ | Bolus from Same Bag | 03/20/20 | 10 mg | | | | | 17 11:00 | | | | | | AM PDT | | | | + + +-------+---+---+ +---+---+ | | | +---+---+ + + + + +--------+---+ | propofol (DIPRIVAN) injection | Rate/Dos | 03/15/20 | 15 | 10.17 | | | 0.5-50 mcg/kg/min | e Verify | 17 2:00 | mcg/kg/m | mL/hr | | | 113 kg Order-specific weight | | PM PDT | in | | | | (0.339-33.9 mL/hr, rounded to | | | | | | | 0.34-33.9 mL/hr), intravenous, | | | | | | | CONTINUOUS, Starting 03/15/17 | | | | | | | at 1245, Until 03/15/17 at 1547 | | | | | | + + + + +--------+---+ +---------+ + +--------+---+ | New Bag | 03/15/20 | 15 | 10.17 | | | | 17 1:00 | mcg/kg/m | mL/hr | | | | PM PDT | in | | | +---------+ + +--------+---+ +---+---+ | | | +---+---+ + + + + +-------+---+ | propofol (DIPRIVAN) injection | Rate/Dos | 03/17/20 | 10 | 6.78 | | | 0.5-60 mcg/kg/min | e Verify | 17 12:00 | mcg/kg/m | mL/hr | | | 113 kg Dosing weight | | PM PDT | in | | | | (0.339-40.68 mL/hr, rounded to | | | | | | | 0.34-40.68 mL/hr), intravenous, | | | | | | | CONTINUOUS, Starting 03/15/17 | | | | | | | at 1630, Until Thu03/17/17 at | | | | | | | 1712 | | | | | | + + + + +-------+---+ + + + +--------+---+ | Rate/Dose Change | 03/17/20 | 10 | 6.78 | | | | 17 11:45 | mcg/kg/m | mL/hr | | | | AM PDT | in | | | + + + +--------+---+ | Rate/Dose Verify | 03/17/20 | 20 | 13.56 | | | | 17 11:00 | mcg/kg/m | mL/hr | | | | AM PDT | in | | | + + + +--------+---+ +---+---+ | | | +---+---+ + + + + +--------+---+ | propofol (DIPRIVAN) injection | Rate/Dos | 03/21/20 | 15 | 10.17 | | | 0.5-60 mcg/kg/min | e Change | 17 11:00 | mcg/kg/m | mL/hr | | | 113 kg Dosing weight | | AM PDT | in | | | | (0.339-40.68 mL/hr, rounded to | | | | | | | 0.34-40.68 mL/hr), intravenous, | | | | | | | CONTINUOUS, Starting 03/17/17 | | | | | | | at 1715, Until 03/21/17 at | | | | | | | 1149 | | | | | | + + + + +--------+---+ + + + +--------+---+ | Rate/Dose Verify | 03/21/20 | 25 | 16.95 | | | | 17 10:00 | mcg/kg/m | mL/hr | | | | AM PDT | in | | | + + + +--------+---+ | New Bag | 03/21/20 | 25 | 16.95 | | | | 17 9:40 | mcg/kg/m | mL/hr | | | | AM PDT | in | | | + + + +--------+---+ +---+---+ | | | +---+---+ + + + + +-------+---+ | propofol (DIPRIVAN) injection | Rate/Dos | 03/22/20 | 5 | 3.39 | | | 0.5-60 mcg/kg/min | e Change | 17 8:15 | mcg/kg/m | mL/hr | | | 113 kg Dosing weight | | AM PDT | in | | | | (0.339-40.68 mL/hr, rounded to | | | | | | | 0.34-40.68 mL/hr), intravenous, | | | | | | | CONTINUOUS, Starting 03/21/17 | | | | | | | at 1200, Until 03/22/17 at | | | | | | | 0927 | | | | | | + + + + +-------+---+ + + + +--------+---+ | Rate/Dose Change | 03/22/20 | 10 | 6.78 | | | | 17 8:10 | mcg/kg/m | mL/hr | | | | AM PDT | in | | | + + + +--------+---+ | Rate/Dose Change | 03/22/20 | 15 | 10.17 | | | | 17 8:05 | mcg/kg/m | mL/hr | | | | AM PDT | in | | | + + + +--------+---+ +---+---+ | | | +---+---+ + +-------+ +---------+---+---+ | QUEtiapine (SEROQUEL) tablet | Given | 03/22/20 | 12.5 mg | | | | 12.5 mg 12.5 mg, feeding tube, | | 17 9:37 | | | | | AT BEDTIME, First dose on Fri | | PM PDT | | | | | 03/20/17 at 2200, Until | | | | | | | Discontinued | | | | | | + +-------+ +---------+---+---+ +-------+ +---------+---+---+ | Given | 03/21/20 | 12.5 mg | | | | | 17 9:53 | | | | | | PM PDT | | | | +-------+ +---------+---+---+ | Given | 03/20/20 | 12.5 mg | | | | | 17 10:32 | | | | | | PM PDT | | | | +-------+ +---------+---+---+ +---+---+ | | | +---+---+ + +-------+ +---------+---+---+ | QUEtiapine (SEROQUEL) tablet | Given | 04/01/20 | 12.5 mg | | | | 12.5 mg 12.5 mg, oral, AT | | 17 9:04 | | | | | BEDTIME, First dose on Mon | | PM PDT | | | | | 03/23/17 at 2200, Until | | | | | | | Discontinued | | | | | | + +-------+ +---------+---+---+ +-------+ +---------+---+---+ | Given | 03/31/20 | 12.5 mg | | | | | 17 9:16 | | | | | | PM PDT | | | | +-------+ +---------+---+---+ | Given | 03/30/20 | 12.5 mg | | | | | 17 9:12 | | | | | | PM PDT | | | | +-------+ +---------+---+---+ +---+---+ | | | +---+---+ + +-------+ +-------+---+---+ | QUEtiapine (SEROQUEL) tablet 25 | Given | 03/20/20 | 25 mg | | | | mg 25 mg, feeding tube, ONCE, 1 | | 17 12:23 | | | | | dose, 03/20/17 at 1245 | | PM PDT | | | | + +-------+ +-------+---+---+ +---+---+ | | | +---+---+ + +-------+ +---------+---+---+ | senna-docusate (SENOKOT S) | Given | 03/20/20 | 2 | | | | 8.6-50 mg 2 tablet 2 tablet, | | 17 8:47 | tablets | | | | feeding tube, TWICE DAILY, First | | PM PDT | | | | | dose on 03/15/17 at 2100, Until | | | | | | | Discontinued | | | | | | + +-------+ +---------+---+---+ +-------+ +---------+---+---+ | Given | 03/19/20 | 2 | | | | | 17 8:04 | tablets | | | | | AM PDT | | | | +-------+ +---------+---+---+ | Given | 03/18/20 | 2 | | | | | 17 8:06 | tablets | | | | | PM PDT | | | | +-------+ +---------+---+---+ +---+---+ | | | +---+---+ + +-------+ +---------+---+---+ | senna-docusate (SENOKOT S) | Given | 04/02/20 | 2 | | | | 8.6-50 mg 2 tablet 2 tablet, | | 17 9:37 | tablets | | | | oral, TWICE DAILY, First dose on | | AM PDT | | | | | 03/23/17 at 2100, Until | | | | | | | Discontinued | | | | | | + +-------+ +---------+---+---+ +-------+ +---------+---+---+ | Given | 04/01/20 | 2 | | | | | 17 9:03 | tablets | | | | | PM PDT | | | | +-------+ +---------+---+---+ | Given | 03/30/20 | 2 | | | | | 17 9:32 | tablets | | | | | AM PDT | | | | +-------+ +---------+---+---+ +---+---+ | | | +---+---+ + + + +--------+---+---+ | sodium chloride 0.9% IV | Bolus | 03/30/20 | 250 mL | | | | infusion INTRAPROCEDURE | from | 17 4:40 | | | | | CONTINUOUS PRN, Starting Mon | Same Bag | AM PDT | | | | | 03/30/17 at 0435, Until Mon | | | | | | | 03/30/17 at 0443 | | | | | | + + + +--------+---+---+ +---------+ +--------+-------+---+ | New Bag | 03/30/20 | 250 mL | 999 | | | | 17 4:35 | | mL/hr | | | | AM PDT | | | | +---------+ +--------+-------+---+ +---+---+ | | | +---+---+ + +---------+ +---------+---+---+ | sodium phosphate IV 30 mmol 30 | New Bag | 03/17/20 | 30 mmol | | | | mmol, intravenous, NEEDED, | | 17 6:54 | | | | | Starting 03/17/17 at 1711, | | PM PDT | | | | | Until 03/22/17 at 0927, | | | | | | | phosphate level 1.8 - 2.3 mg/dL | | | | | | + +---------+ +---------+---+---+ +---+---+ | | | +---+---+ + +-------+ +------+---+---+ | sodium polystyrene (KAYEXALATE) | Given | 03/30/20 | 30 g | | | | suspension 30 g 30 g, oral, | | 17 5:09 | | | | | ONCE, 1 dose, 03/30/17 at 1715 | | PM PDT | | | | + +-------+ +------+---+---+ +---+---+ | | | +---+---+ + +-------+ +------+---+---+ | sulfur hexafluoride | Given | 03/30/20 | 5 mL | | | | microspheres (LUMASON) IV 1-2 mL | | 17 11:59 | | | | | 1-2 mL, intravenous, ONCE, 1 | | AM PDT | | | | | dose, 03/30/17 at 1230 | | | | | | + +-------+ +------+---+---+ +---+---+ | | | +---+---+ + +-------+ +-------+---+---+ | torsemide (DEMADEX) tablet 40 | Given | 03/28/20 | 40 mg | | | | mg 40 mg, oral, ONCE, 1 dose, | | 17 10:37 | | | | | 03/28/17 at 1000 | | AM PDT | | | | + +-------+ +-------+---+---+ +---+---+ | | | +---+---+ + +---------+ + +---+---+ | vancomycin (VANCOCIN) IV 1,250 | New Bag | 03/21/20 | 1,250 mg | | | | mg 1,250 mg, intravenous, EVERY | | 17 5:22 | | | | | 12 HOURS, 5 doses, First dose on | | AM PDT | | | | | 03/20/17 at 0400, Last dose on | | | | | | | 03/22/17 at 0400 | | | | | | + +---------+ + +---+---+ +---------+ + +---+---+ | New Bag | 03/20/20 | 1,250 mg | | | | | 17 4:11 | | | | | | PM PDT | | | | +---------+ + +---+---+ | New Bag | 03/20/20 | 1,250 mg | | | | | 17 3:58 | | | | | | AM PDT | | | | +---------+ + +---+---+ +---+---+ | | | +---+---+ + +---------+ + +---+---+ | vancomycin (VANCOCIN) IV 1,250 | New Bag | 03/22/20 | 1,250 mg | | | | mg 1,250 mg, intravenous, EVERY | | 17 4:31 | | | | | 12 HOURS, 2 doses, First dose on | | AM PDT | | | | | 03/21/17 at 1600, Last dose on | | | | | | | 03/22/17 at 0400 | | | | | | + +---------+ + +---+---+ +---------+ + +---+---+ | New Bag | 03/21/20 | 1,250 mg | | | | | 17 4:09 | | | | | | PM PDT | | | | +---------+ + +---+---+ +---+---+ | | | +---+---+ + +---------+ + +---+---+ | vancomycin (VANCOCIN) IV 1,500 | New Bag | 03/16/20 | 1,500 mg | | | | mg 1,500 mg, intravenous, EVERY | | 17 5:49 | | | | | 24 HOURS, First dose on Mon | | PM PDT | | | | | 03/16/17 at 1800, Until | | | | | | | Discontinued | | | | | | + +---------+ + +---+---+ +---+---+ | | | +---+---+ + +---------+ + +---+---+ | vancomycin (VANCOCIN) IV 1,500 | New Bag | 03/19/20 | 1,500 mg | | | | mg 1,500 mg, intravenous, EVERY | | 17 2:45 | | | | | 12 HOURS, First dose on Thu | | PM PDT | | | | | 03/18/17 at 1400, Until | | | | | | | Discontinued | | | | | | + +---------+ + +---+---+ +---------+ + +---+---+ | New | 03/19/20 | 1,500 mg | | | | | 17 3:13 | | | | | | AM PDT | | | | +---------+ + +---+---+ | New | 03/18/20 | 1,500 mg | | | | | 17 1:30 | | | | | | PM PDT | | | | +---------+ + +---+---+ +---+---+ | | | +---+---+ + +---------+ + +-------+---+ | vancomycin (VANCOCIN) IV 2,000 | New Bag | 03/15/20 | 2,000 mg | 250 | | | mg 2,000 mg, intravenous, ONCE, | | 17 5:55 | | mL/hr | | | 1 dose, 03/15/17 at 1700 | | PM PDT | | | | + +---------+ + +-------+---+ +---+---+ | | | +---+---+ + +---------+ + +---+---+ | vancomycin (VANCOCIN) IV 2,000 | New Bag | 03/18/20 | 2,000 mg | | | | mg 2,000 mg, intravenous, ONCE, | | 17 2:04 | | | | | 1 dose, [facility] 03/18/17 at 0130 | | AM PDT | | | | + +---------+ + +---+---+ +---+---+ | | | +---+---+ + +-------+ +-------+---+---+ | warfarin (COUMADIN) tablet 10 | Given | 03/27/20 | 10 mg | | | | mg 10 mg, oral, EVERY EVENING, | | 17 10:08 | | | | | First dose on Thu03/24/17 at | | PM PDT | | | | | 2100, Until Discontinued | | | | | | + +-------+ +-------+---+---+ +-------+ +-------+---+---+ | Given | 03/26/20 | 10 mg | | | | | 17 9:45 | | | | | | PM PDT | | | | +-------+ +-------+---+---+ | Given | 03/25/20 | 10 mg | | | | | 17 8:58 | | | | | | PM PDT | | | | +-------+ +-------+---+---+ + +---+ | | | + +---+ | warfarin (COUMADIN) tablet 10 | | | mg 10 mg, oral, EVERY EVENING, | | | First dose on Thu04/02/17 at | | | 2100, Until Discontinued | | + +---+ | | | + +---+ + +-------+ +--------+---+---+ | warfarin (COUMADIN) tablet 2.5 | Given | 03/29/20 | 2.5 mg | | | | mg 2.5 mg, oral, EVERY EVENING, | | 17 9:49 | | | | | First dose on 03/29/17 at | | PM PDT | | | | | 2100, Until Discontinued | | | | | | + +-------+ +--------+---+---+ +---+---+ | | | +---+---+ + +-------+ +------+---+---+ | warfarin (COUMADIN) tablet 5 mg | Given | 03/21/20 | 5 mg | | | | 5 mg, feeding tube, EVERY | | 17 9:54 | | | | | EVENING, First dose on Radha | | PM PDT | | | | | 03/19/17 at 2100, Until | | | | | | | Discontinued | | | | | | + +-------+ +------+---+---+ +-------+ +------+---+---+ | Given | 03/20/20 | 5 mg | | | | | 17 8:47 | | | | | | PM PDT | | | | +-------+ +------+---+---+ +---+---+ | | | +---+---+ + +-------+ +------+---+---+ | warfarin (COUMADIN) tablet 5 mg | Given | 03/20/20 | 5 mg | | | | 5 mg, feeding tube, ONCE, 1 | | 17 9:40 | | | | | dose, 03/20/17 at 1000 | | AM PDT | | | | + +-------+ +------+---+---+ +---+---+ | | | +---+---+ + +-------+ +------+---+---+ | warfarin (COUMADIN) tablet 5 mg | Given | 03/28/20 | 5 mg | | | | 5 mg, oral, EVERY EVENING, | | 17 9:42 | | | | | First dose on 03/28/17 at | | PM PDT | | | | | 2100, Until Discontinued | | | | | | + +-------+ +------+---+---+ +---+---+ | | | +---+---+ + +-------+ +------+---+---+ | warfarin (COUMADIN) tablet 5 mg | Given | 03/31/20 | 5 mg | | | | 5 mg, oral, EVERY EVENING, | | 17 9:16 | | | | | First dose on 03/31/17 at | | PM PDT | | | | | 2100, Until Discontinued | | | | | | + +-------+ +------+---+---+ +---+---+ | | | +---+---+ + +-------+ +--------+---+---+ | warfarin (COUMADIN) tablet 7.5 | Given | 03/22/20 | 7.5 mg | | | | mg 7.5 mg, feeding tube, EVERY | | 17 9:37 | | | | | EVENING, First dose on Sun | | PM PDT | | | | | 03/22/17 at 2100, Until | | | | | | | Discontinued | | | | | | + +-------+ +--------+---+---+ +---+---+ | | | +---+---+ + +-------+ +--------+---+---+ | warfarin (COUMADIN) tablet 7.5 | Given | 03/23/20 | 7.5 mg | | | | mg 7.5 mg, oral, EVERY EVENING, | | 17 10:01 | | | | | First dose on Thu03/23/17 at | | PM PDT | | | | | 2100, Until Discontinued | | | | | | + +-------+ +--------+---+---+ +---+---+ | | | +---+---+ + +-------+ +--------+---+---+ | warfarin (COUMADIN) tablet 7.5 | Given | 03/30/20 | 7.5 mg | | | | mg 7.5 mg, oral, EVERY EVENING, | | 17 9:13 | | | | | First dose on Thu03/30/17 at | | PM PDT | | | | | 2100, Until Discontinued | | | | | | + +-------+ +--------+---+---+ +---+---+ | | | +---+---+ + +-------+ +--------+---+---+ | warfarin (COUMADIN) tablet 7.5 | Given | 04/01/20 | 7.5 mg | | | | mg 7.5 mg, oral, EVERY EVENING, | | 17 9:04 | | | | | First dose on Thu04/01/17 at | | PM PDT | | | | | 2100, Until Discontinued | | | | | | + +-------+ +--------+---+---+ +---+---+ | | | +---+---+ + +-------+ +---+---+---+ | white petrolatum-mineral | Given | 03/17/20 | | | | | oil-lanolin (LACRILUBE) 83-15 % | | 17 2:58 | | | | | ophthalmic ointment Both Eyes, | | PM PDT | | | | | EVERY 2 HOURS NEEDED, Starting | | | | | | | 03/15/17 at 1343, Until Sun | | | | | | | 03/22/17 at 0927, dry eyes | | | | | | + +-------+ +---+---+---+ +-------+ +---+---+---+ | Given | 03/17/20 | | | | | | 17 11:58 | | | | | | AM PDT | | | | +-------+ +---+---+---+ +---+---+ | | | +---+---+ documented in this encounter
--- OUTSIDE RECORDS SUMMARY | ~2019-02-08 | XMS | Encounter Summary ---
Demographics + + + | Address | [address] | | | [place] [address] | + + + | Home Phone | | + + + | Preferred Language | Unknown | + + + | Marital Status | | + + + | Quaker Affiliation | Unknown | + + + | Race | Unknown | + + + | Ethnic Group | Unknown | + + + Author + + + | Author | [facility] | | | and [place] | + + + | Organization | [facility] | | | and [place] | + + + | Address | Unknown | + + + | Phone | Unavailable | + + + Support + + + + + | Name | Relationship | Address | Phone | + + + + + | [place] | [place] | [place] | | | | | [address] | | + + + + + Care Team Providers + +------+ + | Care Docking Pilot Name | Role | Phone | + +------+ + | Young Haque DO | PCP | | + +------+ + Encounter Details +--------+ + + + + | Date | Type | Department | Care Team | Description | +--------+ + + + + | 03/19/ | Abstract | [facility] [place] | Jenny, | | | 2018 | | CARDIOLOGY [address] | Hansa SENIOR PROGRAM MANAGER [address] | | | | | [place], | [place], | | | | | [place] [address] | [place] [address] | | | | | [phone] | [phone] | | | | | | | [...] | 03/08/ | Office | Nephrology | Litzy, | | | 2019 | Visit | | ADARSH [address] | | | | | | [address] , [facility] | | | | | | [address] | | | | | | [address] | | | | | | | | +--------+ + + + + | 03/24/ | Procedure | Cardiology | | | | 2018 | visit | | | | +--------+ + + + + | 03/24/ | Office | Cardiology | Jenny, | | | 2018 | Visit | | ADARSH [address]anto [address] | | | | | | [place], | | | | | | [place] [address] | | | | | | [phone] | | | | | | | | +--------+ + + + + documented as of this encounter Procedures + +--------+ + + + | Procedure Name | Priori | Date/Time | Associated Diagnosis | Comments | | | ty | | | | + +--------+ + + + | EXTERNAL LAB: [facility] | Routin | 11/12/2018 | | Results [...] | | METABOLIC PANEL | e | | | procedure are in the | | | | | | results section. | + +--------+ + + + documented in this encounter Results Comprehensive Metabolic Panel (11/12/2018) + +-------+ + + + | Component | Value | Ref Range | Performed | Pathologist | | | | | At | Signature | + +-------+ + + + | Anion Gap | 18 | 7 - 21 | | | + +-------+ + + + | Bun/Creatin | 20.4 | 6.0 - 28.6 | | | | ine | | | | | + +-------+ + + + + + | Specimen | + + | Blood | + + External Lab: BUN (11/12/2018) + +--------+ + + + | Component | Value | Ref Range | Performed | Pathologist | | | | | At | Signature | + +--------+ + + + | BUN, | 47 (A) | 6 - 23 | EXTERNAL | | | External | | | LAB | | + +--------+ + + + + +---------+ + + | Performing | Address | City/State/Zipcode | Phone Number | | Organization | | | | + +---------+ + + | EXTERNAL LAB | | | | + +---------+ + + External Lab: Glucose (11/12/2018) + +-------+ + + + | Component | Value | Ref Range | Performed | Pathologist | | | | | At | Signature | + +-------+ + + + | Glucose, | 93 | 70 - 100 | EXTERNAL | | | External | | | LAB | | + +-------+ + + + + +---------+ + + | Performing | Address | City/State/Zipcode | Phone Number | | Organization | | | | + +---------+ + + | EXTERNAL LAB | | | | + +---------+ + + External Lab: Calcium (11/12/2018) + +-------+ + + + | Component | Value | Ref Range | Performed | Pathologist | | | | | At | Signature | + +-------+ + + + | Calcium, | 9.0 | 8.5 - 10.3 | EXTERNAL | | | External | | | LAB | | + +-------+ + + + + +---------+ + + | Performing | Address | City/State/Zipcode | Phone Number | | Organization | | | | + +---------+ + + | EXTERNAL LAB | | | | + +---------+ + + External Lab: Chloride (11/12/2018) + +-------+ + + + | Component | Value | Ref Range | Performed | Pathologist | | | | | At | Signature | + +-------+ + + + | Chloride, | 105 | 95 - 112 | EXTERNAL | | | External | | | LAB | | + +-------+ + + + + +---------+ + + | Performing | Address | City/State/Zipcode | Phone Number | | Organization | | | | + +---------+ + + | EXTERNAL LAB | | | | + +---------+ + + External Lab: Potassium (11/12/2018) + +-------+ + + + | Component | Value | Ref Range | Performed | Pathologist | | | | | At | Signature | + +-------+ + + + | Potassium, | 4.4 | 3.6 - 5.1 | EXTERNAL | | | External | | | LAB | | + +-------+ + + + + +---------+ + + | Performing | Address | City/State/Zipcode | Phone Number | | Organization | | | | + +---------+ + + | EXTERNAL LAB | | | | + +---------+ + + External Lab: Sodium (11/12/2018) + +---------+ + + + | Component | Value | Ref Range | Performed | Pathologist | | | | | At | Signature | + +---------+ + + + | Sodium, | 144 (A) | 132 - 143 | EXTERNAL | | | External | | | LAB | | + +---------+ + + + + +---------+ + + | Performing | Address | City/State/Zipcode | Phone Number | | Organization | | | | + +---------+ + + | EXTERNAL LAB | | | | + +---------+ + + External Lab: eGFR (11/12/2018) + +-------+ + + + | Component | Value | Ref Range | Performed | Pathologist | | | | | At | Signature | + +-------+ + + + | eGFR, | 29 | 29 | EXTERNAL | | | External | | | LAB | | + +-------+ + + + + + | Specimen | + + | Blood | + + + +---------+ + + | Performing | Address | City/State/Zipcode | Phone Number | | Organization | | | | + +---------+ + + | EXTERNAL LAB | | | | + +---------+ + + External Lab: Creatinine (11/12/2018) + + + + + + | Component | Value | Ref Range | Performed | Pathologist | | | | | At | Signature | + + + + + + | Creatinine, | 2.30 (A) | 0.7 - 1.25 | EXTERNAL | | | External | | | LAB | | + + + + + [...]
--- OUTSIDE RECORDS SUMMARY | ~2019-02-08 | XMS | Encounter Summary ---
Demographics + + + | Address | [address] | | | [place] [address] | + + + | Home Phone | | + + + | Preferred Language | Unknown | + + + | Marital Status | | + + + | Orthodoxy Affiliation | Unknown | + + + | Race | Unknown | + + + | Ethnic Group | Unknown | + + + Author + + + | Author | [facility] | | | and [place] | + + + | Organization | [facility] | | | and [place] | + + + | Address | Unknown | + + + | Phone | Unavailable | + + + Support + + + + + | Name | Relationship | Address | Phone | + + + + + | [place] | [place] | [place] | | | | | [address] | | + + + + + Care Team Providers + +------+ + | Care Drivability Technician Name | Role | Phone | [...] Description | +--------+--------+ + + + | 12/06/ | Refill | [facility] [place] | Jenny, | Medication Refill | | 2018 | | CARDIOLOGY [address] | ADARSH [address] | | | | | [place], | [place], | | | | | [place] [address] | [place] [address] | | | | | [phone] | [phone] | | | | | | | [...] | | | | | [address], [place] | | | | | | [address] [place], [place] | | | | | | [address] | | | | | | | | +--------+ + + + + | 03/24/ | Procedure | Cardiology | | | | 2018 | visit | | | | +--------+ + + + + | 03/24/ | Office | Cardiology | Jenny | | | 2018 | Visit | | ADAR[facility] [address] | | | | | | [place], | | | | | | [place] [address] | | | | | | [phone] | | | | | | | | +--------+ + + + + documented as of this encounter Visit Diagnoses Not on filedocumented in this encounter"
--- OUTSIDE RECORDS SUMMARY | ~2019-02-08 | XMS | Encounter Summary ---
Demographics + + + | Address | [address] | | | [place] [address] | + + + | Home Phone | | + + + | Preferred Language | Unknown | + + + | Marital Status | | + + + | Rastafarian Affiliation | NRP | + + + | Race | White | + + + | Ethnic Group | Not or | + + + Author + + + | Author | [facility] | + + + | Organization | [facility] | + + + | Address | Unknown | + + + | Phone | Unavailable | + + + Support + + + + + | Name | Relationship | Address | Phone | + + + + + | Venice Mckeon | ECON | [address] | | | | | [place] [address] | | + + + + + Care Team Providers + +------+ + | Care Commercial Loan Assistant Name | Role | Phone | + [...] | | | | for Health | [place] | | | | | | and Healing, | Research | | | | | | 8th Floor | [place] | | | | | | [facility] [place] | [place], [place] | | | | | | [address] | [address] | | | | | | Phone: | Phone: | | | | | | [phone] | [phone] | | | | | | Fax: | Fax: | | | | | | [phone] | [phone] | +--------+--------+ + + + + Reason [...] | | | Management | Chronic | Ysei Pierce, | MD Sapna | | | | | pain | MD GUERRERO | [address] | | | | | syndrome | FAMILY | Ave | | | | | Degeneration | MEDICINE | [place], [place] | | | | | of cervical | [address] | [address] | | | | | | [address] | Phone: | | | | | intervertebr | [place], | [phone] | | | | | al disc | [place] [address] | Fax: | | | | | chronic | Phone: | [phone] | | | | | spine pain | [phone] | | | | | | cervical | Fax: | | | | | | stenosis | [phone] | | +--------+--------+ + + + + Encounter Details +--------+---------+ + + + | Date | Type | Department | Care Team | Description | +--------+---------+ + + + | 02/18/ | Office | Spine Center at | Sapna Dutta MD | Neck pain; 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 You will greatly increase your [facility] es of success if you take medicine [...] a smoking cessation program, such as the [place] [employer] on's [place] from Smoking program. Set a quit date. [...] in several forms, many of them available uamo-lbr-smormtf: Nicotine patches Nicotine gum and lozenges Nicotine [...] Smoking: After Your Visit", log into your Skadoosh account at [email or web address]. You can enter [id number] in the iJento" search box. Not on Skadoosh? Review the Skadoosh section of your After Visit Summary for directions on ho w to sign up. 0065-1460 Afrimarket. Care instructions adapted under license by [facility] [place]. This care instruction is for use with your licensed healthcar e professional. If you have questions about a medical condition or this instruction, always ask your healthcare professional. Afrimarket disclaims any warranty or liabili ty for your use of this information. Content Version: 9.3.56581; Last Revised: March 26, 2011 Information about [...] your doctor have elected to try a custodial solution, the nerve to the facet j [...] frequently to treat pain of longstanding duration. [facility] Hvsvxgkbjcxabs signed by Sapna Dutta MD at 02/19/2012 11:42 AM PDT documented in this encounter Progress Notes Sapna Dutta MD - 02/19/2012 10:50 AM PDT [facility] Office Visit Date: 02/19/2012 Mr. Mckeon was referred for Spine Center evaluation by Yesi Guerrero MD [facility] [address] [place] [address]. Reason for consult: Chief Complaint: Chief Complaint [...] offered surgery. 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 He lives with h is of 7 years, and they get along well. 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 He does not feel that he has had effective therapy for this problem. . He is here to "just get rid of the pain." Mr. 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 He was in combat. He does [...] by mouth two times daily. MULTIVITAMIN WITH IUZ-TD-CQVCFPVO-GINKGO 400 MCG-300 MCG-120 MG TAB Take by [...] : 1955 Age: 56 Sex: M Acct: [id number] Loc: MRI Exam Date: 11/05/2011 Status: REG REF Radiology No: Unit No: [id number] EXAM# TYPE/EXAM RESULT CPT CODE [id number] MRI/CERVICAL SPINE W/O CONTRAST [id number] EXAM: MRI CERVICAL SPINE, Nov 05, 2011 01:04:00 PM. CLINICAL HISTORY: Chronic neck and left arm pain. COMPARISON: Cervical spine MRI from [facility] on 02/14/2010. TECHNIQUE: T1 and T2 [...] consider this. Mr. Mckeon cannot come to [facility] for treatment on any kind of [...] branch denerva tion option SAPNA DUTTA MD Counts Include [address] [place] [facility] documented in this encounter Plan [...] | 1955 Age: 56 Sex: M Acct: [id number] Loc: MRI Exam Date: | | | 11/05/2011 Status: REG REF Radiology No: Unit No: [id number] | | | EXAM# TYPE/EXAM RESULT CPT CODE [id number] MRI/CERVICAL SPINE W/O | | | CONTRAST [id number] EXAM: MRI CERVICAL SPINE, Nov 05, 2011 01:04:00 | | | PM. CLINICAL HISTORY: Chronic neck and left arm pain. | | | COMPARISON: Cervical spine MRI from [facility] on | | | 02/14/2010. TECHNIQUE: [...]
--- OUTSIDE RECORDS SUMMARY | ~2019-02-08 | XMS | Encounter Summary ---
Demographics + + + | Address | [address] | | | [place] [address] | + + + | Home Phone [...] [place] | | | | | [address] | | + + + + + Care Team Providers + +------+ + | Care Pre Owned Sales Consultant Name | Role | Phone | [...] Description | +--------+--------+ + + + | 02/01/ | Refill | [facility] [place] | Jenny, | Medication Refill | | 2018 | | CARDIOLOGY [address] | Hansa, CIGARETTE MACHINE OPERATOR [address] | | | | | [place], | [place], | | | | | [place] [address] | [place] [address] | | | | | [phone] | [phone] | | | | | | | [...] | | | | | | [address], [place] | | | | | | [address] | | | | | | [address] | | | | | | | [...] | | | | | | [place] [address] | | | | | | [phone] | | | | | | | | +--------+ + + + + documented as of this encounter Visit Diagnoses Not on filedocumented in this encounter"
--- OUTSIDE RECORDS SUMMARY | ~2019-02-08 | XMS | Encounter Summary ---
Demographics + + + | Address | [address] | | | [place] [address] | + + + | Home Phone | | + + + | Preferred Language | Unknown | + + + | Marital Status | | + + + | Druze Affiliation | NRP | + + + | Race | White | + + + | Ethnic Group | Not or | + + + Author + + + | Author | [facility] | + + + | Organization | [facility] | + + + | Address | Unknown | + + + | Phone | Unavailable | + + + Support + + + + + | Name | Relationship | Address | Phone | + + + + + | Venice Will | ECON | [address] | | | | | [place] [address] | | + + + + + Care Team Providers + +------+ + | Care Supervisor Carding Name | Role | Phone | + [...] [place] | | | | | | [facility] | | | | | | [place], [place] | | | | | | [address] | | | +--------+ + + + [...]
--- OUTSIDE RECORDS SUMMARY | ~2019-02-08 | XMS | Encounter Summary ---
Demographics + + + | Address | [address] | | | [place] [address] | + + + | Home Phone | | + + + | Preferred Language | Unknown | + + + | Marital Status | | + + + | Alevism Affiliation | NRP | + + + | Race | White | + + + | Ethnic Group | Not or | + + + Author + + + | Author | [facility] | + + + | Organization | [facility] | + + + | Address | Unknown | + + + | Phone | Unavailable | + + + Support + + + + + | Name | Relationship | Address | Phone | + + + + + | Venice Will | ECON | [address] | | | | | [place] [address] | | + + + + + Care Team Providers + +------+ + | Care Channel Lip Stiffener Insoles Name | Role | Phone | + +------+ + | Jamal Guerrero MD | PCP | | + +------+ + Encounter Details +--------+ + + + + | Date | Type | Department | Care Team | Description | +--------+ + + + + | 03/30/ | Hospital | Cardiac | Sjh, Car Ecg Tech | | | 2017 | Encounter | Non-Invasive Testing | [address] | | | | | at [facility] | [facility] | | | | | [address] | [place] [address] | | | | | [facility] | | | | | | Mailcode: [id number] [address] | | | | | | [facility] | | | | | | Building [place], | | | | | | [place] [address] | | | | | | [phone] | | | +--------+ + + + [...]
--- OUTSIDE RECORDS SUMMARY | ~2019-02-08 | XMS | Encounter Summary ---
Demographics + + + | Address | [address] | | | [place] [address] | + + + | Home Phone [...] [place] | | | | | [address] | | + + + + + Care Team Providers + +------+ + | Care Clearing Supervisor Name | Role | Phone | + [...] | | | | | | [place] [address] | | | | | | [phone] | | | +--------+ + + + [...] 03/08/ | Office | Nephrology | [facility] | | | 2018 | Visit | | ADARSH [address] | | | | | | [address] [facility] | | | | | | [address] | | | | | | [address] | | | | | | | [...] [place], | | | | | | [place] [address] | | | | | | [phone] | | | | | | | | +--------+ + + + + documented as of this encounter Visit Diagnoses Not on filedocumented in this encounter"
--- OUTSIDE RECORDS SUMMARY | ~2019-02-08 | XMS | Encounter Summary ---
Demographics + + + | Address | [address] | | | [place] [address] | + + + | Home Phone | | + + + | Preferred Language | Unknown | + + + | Marital Status | | + + + | Latter Day Affiliation | Unknown | + + + | Race | Unknown | + + + | Ethnic Group | Unknown | + + + Author + + + | Author | [facility] | | | and [place] | + + + | Organization | [facility] | | | and [place] | + + + | Address | Unknown | + + + | Phone | Unavailable | + + + Support + + + + + | Name | Relationship | Address | Phone | + + + + + | Venice Will | ECON | [place] | | | | | [address] | | + + + + + Care Team Providers + +------+ + | Care Wellness Educator Name | Role | Phone | + +------+ + | Young Haque DO | PCP | | + +------+ + Encounter Details +--------+ + + + + | Date | Type | Department | Care Team | Description | +--------+ + + + + | 03/28/ | Abstract | [facility] [place] | Jenny, | | | 2019 | | CARDIOLOGY [address] | Hansa BELT MOLDER [address] | | | | | [place], | [place], | | | | | [place] [address] | [place] [address] | | | | | [phone] | [phone] | | | | | | | [...] | | | | [address] , [facility] | | | | | | [address] | | | | | | [address] | | | | | | | | +--------+ + + + + | 03/24/ | Procedure | Cardiology | | | | 2018 | visit | | | | +--------+ + + + + | 03/24/ | Office | Cardiology | Jenny, | | | 2018 | Visit | | ADARSH Santo [address] | | | | | | [place], | | | | | | [place] [address] | | | | | | [phone] | | | | | | | [...]
--- OUTSIDE RECORDS SUMMARY | ~2019-02-08 | XMS | Encounter Summary ---
Demographics + + + | Address | [address] | | | [place] [address] | + + + | Home Phone | | + + + | Preferred Language | Unknown | + + + | Marital Status | | + + + | Gnosticist Affiliation | NRP | + + + | Race | White | + + + | Ethnic Group | Not or | + + + Author + + + | Author | [facility] | + + + | Organization | [facility] | + + + | Address | Unknown | + + + | Phone | Unavailable | + + + Support + + + + + | Name | Relationship | Address | Phone | + + + + + | Venice Will | ECON | [address] | | | | | [place] [address] | | + + + + + Care Team Providers + +------+ + | Care Manager Of Finance Name | Role | Phone | + [...] + | 10/16/ | Anesthesia | Cardiac Cmm Operator | Terry Garvin, | | | 2018 | Event | at [facility] [address] [facility] | [facility] [address] | | | | | [facility] | [facility] | | | | | [facility] | [place], [place] | | | | | [place], [place] | [address] | | | | | [address] | [phone] | | | | | [phone] | | | +--------+ + + + [...] | | | | (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
--- OUTSIDE RECORDS SUMMARY | ~2019-02-08 | XMS | Encounter Summary ---
Demographics + + + | Address | [address] | | | [place] [address] | + + + | Home Phone | | + + + | Preferred Language | Unknown | + + + | Marital Status | | + + + | Jew Affiliation | NRP | + + + [...] | | | | | [place] [address] | | + + + + + Care Team Providers + +------+ + | Care Corporate Risk Analyst Name | Role | Phone | [...] David | | | | | at [facility] | [facility] | | | | | [address] | [place] [address] | | | | | [facility] | | | | | | Mailcode: [id number] [address] | | | | | | [facility] | | | | | | Building [place], | | | | | | [place] [address] | | | | | | [phone] | | | +--------+ + + + [...]
--- OUTSIDE RECORDS SUMMARY | ~2019-02-08 | XMS | Encounter Summary ---
Demographics + + + | Address | [address] | | | [place] [address] | + + + | Home Phone | | + + + | Preferred Language | Unknown | + + + | Marital Status | | + + + | Taoism Affiliation | NRP | + + + [...] | | | | | [place] [address] | | + + + + + Care Team Providers + +------+ + | Care Closet Builder Name | Role | Phone | + +------+ + | Jamal Guerrero MD | PCP | | + +------+ + Encounter Details +--------+ + + + + | Date | Type | Department | Care Team | Description | +--------+ + + + + | 01/28/ | Document-Sc | UNKNOWN DEPARTMENT | Unknown . | | | 2011 | anned | [address] [facility] | | | | | | [facility] | | | | | | [place], [place] | | | | | | [address] | | | +--------+ + + + [...]
--- OUTSIDE RECORDS SUMMARY | ~2019-02-08 | XMS | Encounter Summary ---
Demographics + + + | Address | [address] | | | [place] [address] | + + + | Home Phone [...] + + + | Author | [facility] | + + + | Organization | [facility] | + + + | Address | Unknown | + + + | Phone | Unavailable | + + + Support + + + + + | Name | Relationship | Address | Phone | + + + + + | Venice Mckeon | ECON | [address] | | | | | [place] [address] | | + + + + + Care Team Providers + +------+ + | Care Restaurant Hourly Team Member Name | Role | Phone | + [...] | | | | for Health | [place] | | | | | | and Healing, | Research | | | | | | 8th Floor | [place] | | | | | | [facility] [place] | [place], [place] | | | | | | [address] | [address] | | | | | | Phone: | Phone: | | | | | | [phone] | [phone] | | | | | | Fax: | Fax: | | | | | | [phone] | [phone] | +--------+--------+ + + + + Reason [...] | | | Degeneration | MEDICINE | [place], [place] | | | | | of cervical | [address] | [address] | | | | | | [address] | Phone: | | | | | intervertebr | [place], | [phone] | | | | | al disc | [place] [address] | Fax: | | | | | chronic | Phone: | [phone] | | | | | spine pain | [phone] | | | | | | cervical | Fax: | | | | | | stenosis | [phone] | | +--------+--------+ + + + + Encounter Details +--------+---------+ + + + | Date | Type | Department | Care Team | Description | +--------+---------+ + + + | 02/18/ | Office | Spine Center at | Sapna Dutta MD | Neck pain; 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 | [facility] 8th Floor [address] | [address] | arthropathy, | | | | [address] | [place], [place] | cervical; Cervical | | | | Code: [facility] | [address] | spondylosis without | | | | for Health and | [phone] | myelopathy; | | | | Healing, 8th Floor | | Impingement syndrome | | | | [place], [place] | | of left shoulder; | | | | [address] | | Physical | | | | [phone] | | deconditioning; Post | | | [...] for ideas. You will greatly increase your [facility] es of success if you take medicine [...] a smoking cessation program, such as the [employer] on's [place] from Smoking program. Set a quit date. [...] in several forms, many of them available wyue-uvb-hxweird: Nicotine patches Nicotine gum and lozenges Nicotine [...] Smoking: After Your Visit", log into your TipRanks account at [email or web address]. You can enter [id number] in the [employer] Cookies" search box. Not on TipRanks? Review the TipRanks section of your After Visit Summary for directions on ho w to sign up. 7901-2410 Pretio Interactive. Care instructions adapted under license by Pending sale to [facility] [place]. This care instruction is for use with your licensed healthcar e professional. If you have questions about a medical condition or this instruction, always ask your healthcare professional. Pretio Interactive disclaims any warranty or liabili ty for your use of this information. Content Version: 9.3.39297; Last Revised: March 26, 2011 Information about [...] your doctor have elected to try a alf solution, the nerve to the facet j [...] frequently to treat pain of longstanding duration. [facility] Maqnybicuoyiza signed by Sapna Dutta MD at 02/19/2012 11:42 AM PDT documented in this encounter Progress Notes Sapna Dutta MD - 02/19/2012 10:50 AM PDT [facility] Office Visit Date: 02/19/2012 Mr. Mckeon was referred for Spine Center evaluation by Yesi Guerrero MD [facility] [address] [place] [address]. Reason for consult: Chief Complaint: Chief Complaint [...] offered surgery. 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 He lives with h is of 7 years, and they get along well. 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 He does not feel that he has had effective therapy for this problem. . He is here to "just get rid of the pain." Mr. Mckeon served in the [employer] from 4138[address]8042, including the first [place] war, d [employer] trucks. He was in combat. He does [...] by mouth two times daily. MULTIVITAMIN WITH AXY-JF-THWSAMJX-GINKGO 400 MCG-300 MCG-120 MG TAB Take by [...] : 1955 Age: 56 Sex: M Acct: [id number] Loc: MRI Exam Date: 11/05/2011 Status: REG REF Radiology No: Unit No: [id number] EXAM# TYPE/EXAM RESULT CPT CODE [id number] MRI/CERVICAL SPINE W/O CONTRAST [id number] EXAM: MRI CERVICAL SPINE, Nov 05, 2011 01:04:00 PM. CLINICAL HISTORY: Chronic neck and left arm pain. COMPARISON: Cervical spine MRI from [facility] on 02/14/2010. TECHNIQUE: T1 and T2 [...] consider this. Mr. Mckeon cannot come to [facility] for treatment on any kind [...] branch denerva tion option SAPNA DUTTA MD [facility] documented in this encounter Plan [...] | 1955 Age: 56 Sex: M Acct: [id number] Loc: MRI Exam Date: | | | 11/05/2011 Status: REG REF Radiology No: Unit No: [id number] | | | EXAM# TYPE/EXAM RESULT CPT CODE [id number] MRI/CERVICAL SPINE W/O | | | CONTRAST [id number] EXAM: MRI CERVICAL SPINE, Nov 05, 2011 01:04:00 | | | PM. CLINICAL HISTORY: Chronic neck and left arm pain. | | | COMPARISON: Cervical spine MRI from [facility] on | | | 02/14/2010. TECHNIQUE: [...]
--- OUTSIDE RECORDS SUMMARY | ~2019-02-08 | XMS | Encounter Summary ---
Demographics + + + | Address | [address] | | | [place] [address] | + + + | Home Phone [...] [place] | | | | | [address] | | + + + + + Care Team Providers + +------+ + | Care Edge Bander Operator Name | Role | Phone | + +------+ + | Venus Lainez MD | PCP | | + +------+ + Encounter Details +--------+ + + + + | Date | Type | Department | Care Team | Description | +--------+ + + + + | 04/25/ | Abstract | [facility] [place] | Sarah BethLeighaTamia W, | | | 2018 | | NEPHROLOGY [address] | MD [address] | | | | | [address] | [address] [place] | | | | | [place], [place] | [place] [address] | | | | | [address] | [phone] | | | | | [phone] | | | +--------+ + + + [...] | 03/08/ | Office | Nephrology | [facility], | | | 2019 | Visit | | ADARSH [address] | | | | | | [address], [place] | | | | | | [address] | | | | | | [address] | | | | | | | | +--------+ + + + + | 03/24/ | Procedure | Cardiology | | | | 2019 | visit | | | | +--------+ + + + + | 03/24/ | Office | Cardiology | Jenny, | | | 2018 | Visit | | ADARSH [address] | | | | | | [place], | | | | | | [place] [address] | | | | | | [phone] | | | | | | | [...] in this encounter Results External Lab: [facility] (12/20/2018) + +-------+ + + + | [...]
--- OUTSIDE RECORDS SUMMARY | ~2019-02-08 | XMS | Encounter Summary ---
Demographics + + + | Address | [address] | | | [place] [address] | + + + | Home Phone [...] [place] | | | | | [address] | | + + + + + Care Team Providers + +------+ + | Care Mat Cleaning Machine Operator Name | Role | Phone [...] Monitor | CARDIOLOGY [address] | [address] | Interrogation | | | | [place], | [place], | (Primary Dx); TRANSPORT TECH[place]IC[place] | | | | [place] [address] | [place] [address] | (AICD) [employer]tr[employer] | | | | [phone] | [phone] | 10/16/17 [facility]; | | | | | | [...] | | | | | [address], [place] | | | | | | [address] | | | | | | [address] | | | | | | | [...] | | | | | | [place] [address] | | | | | | [phone] | | | | | | | [...] | e | 23:59 PDT | Interrogation TRANSPORT TECHNICIAN-D | procedure are in the | | REMOTE | | | ([facility]) [employer] | results section. | | [...] PDF scanned into | | | [facility] for remote interrogation results. Data collected by [...] + + | Performing | Address | City/State/[facility] | Phone Number | | Organization | | | | + +---------+ + + | [facility] | | | | + +---------+ + + documented in this encounter Visit Diagnoses + + | Diagnosis | + + | Remote Device Interrogation - Primary Fitting and adjustment of automatic implantable | | cardiac defibrillator | + + | TRANSPORT TECHNICIAN-D (ZANED) [employer]onic 10/16/17 EULOGIO Darby | + + | Ischemic cardiomyopathy Other specified forms of chronic ischemic heart disease | + + documented in this encounter"
--- OUTSIDE RECORDS SUMMARY | ~2019-02-08 | XMS | Encounter Summary ---
Demographics + + + | Address | [address] | | | [place] [address] | + + + | Home Phone | | + + + | Preferred Language | Unknown | + + + | Marital Status | | + + + | Jainism Affiliation | NRP | + + + | Race | White | + + + | Ethnic Group | Not or | + + + Author + + + | Author | [facility] | + + + | Organization | [facility] | + + + | Address | Unknown | + + + | Phone | Unavailable | + + + Support + + + + + | Name | Relationship | Address | Phone | + + + + + | Venice Will | ECON | [address] | | | | | [place] [address] | | + + + + + Care Team Providers + +------+ + | Care Mill Hand Plate Mill Name | Role | Phone | + [...] [place] | | | | | | [facility] | | | | | | [place], [place] | | | | | | [address] | | | +--------+ + + + [...]
--- OUTSIDE RECORDS SUMMARY | ~2019-02-08 | XMS | Encounter Summary ---
Demographics + + + | Address | [address] | | | [place] [address] | + + + | Home Phone | | + + + | Preferred Language | Unknown | + + + | Marital Status | | + + + | Confucianism Affiliation | NRP | + + + | Race | White | + + + | Ethnic Group | Not or | + + + Author + + + | Author | [facility] | + + + | Organization | [facility] | + + + | Address | Unknown | + + + | Phone | Unavailable | + + + Support + + + + + | Name | Relationship | Address | Phone | + + + + + | Venice Will | ECON | [address] | | | | | [place] [address] | | + + + + + Care Team Providers + +------+ + | Care Appraiser Land Name | Role | Phone | + +------+ + | Chato Matson MD | PCP | | + +------+ + Encounter Details +--------+ + + + + | Date | Type | Department | Care Team | Description | +--------+ + + + + | 03/19/ | Procedure | 6A Intra Op [facility] | | | | 2016 | Pass | [facility] | | | | | | Admitting Desk | | | | | | Located on the 9th | | | | | | floor [address] [facility] | | | | | | [facility] | | | | | | [place], [place] | | | | | | [address] | | | +--------+ + + + [...]
--- OUTSIDE RECORDS SUMMARY | ~2019-02-08 | XMS | Encounter Summary ---
Demographics + + + | Address | [address] | | | [place] [address] | + + + | Home Phone | | + + + | Preferred Language | Unknown | + + + | Marital Status | | + + + | Gnosticism Affiliation | Unknown | + + + [...] [place] | | | | | [address] | | + + + + + Care Team Providers + +------+ + | Care Master Plumber Name | Role | Phone | + [...] | Telephone | [facility] [place] | [place], | Medication Related | | 2018 | | CARDIOLOGY [address] | ADARSH Santo [address] | | | | | [place], | [place], | | | | | [place] [address] | [place] [address] | | | | | [phone] | [phone] | | | | | | | [...] | | | | | | [address] [place] [address], [place] | | | | | | [address] | | | | | | [address] | | | | | | | [...] | | | | | | [place] [address] | | | | | | [phone] | | | | | | | [...] | starting 11/30/2018 | | | | knik coronary | until 12/01/2019 | | | | artery of knik | | | | | heart without [...]
--- OUTSIDE RECORDS SUMMARY | ~2019-02-08 | XMS | Encounter Summary ---
Demographics + + + | Address | [address] | | | [place] [address] | + + + | Home Phone | | + + + | Preferred Language | Unknown | + + + | Marital Status | | + + + | Zoroastrianism Affiliation | NRP | + + + | Race | White | + + + | Ethnic Group | Not or | + + + Author + + + | Author | [facility] | + + + | Organization | [facility] | + + + | Address | Unknown | + + + | Phone | Unavailable | + + + Support + + + + + | Name | Relationship | Address | Phone | + + + + + | Venice Will | ECON | [address] | | | | | [place] [address] | | + + + + + Care Team Providers + +------+ + | Care Bank Appraiser Name | Role | Phone | + +------+ + | Jamal Guerrero MD | PCP | | + +------+ + Encounter Details +--------+ + + + + | Date | Type | Department | Care Team | Description | +--------+ + + + + | 01/28/ | Document-Sc | UNKNOWN DEPARTMENT | Unknown . | | | 2011 | anned | [address] [facility] | | | | | | [facility] | | | | | | [place], [place] | | | | | | [address] | | | +--------+ + + + [...]
--- OUTSIDE RECORDS SUMMARY | ~2019-02-08 | XMS | Encounter Summary ---
Demographics + + + | Address | [address] | | | [place] [address] | + + + | Home Phone | | + + + | Preferred Language | Unknown | + + + | Marital Status | | + + + | Jewish Affiliation | NRP | + + + [...] | | | | | [place] [address] | | + + + + + Care Team Providers + +------+ + | Care Director Mortgage Name | Role | Phone | + [...] | | | | | | [place] [address] | | | +--------+--------+ + + + [...]
--- OUTSIDE RECORDS SUMMARY | ~2019-02-08 | XMS | Encounter Summary ---
Demographics + + + | Address | [address] | | | [place] [address] | + + + | Home Phone [...] | [place] | | | | | [address] | | + + + + + Care Team Providers + +------+ + | Care Counseling Services Director Name | Role | Phone | [...] | | | involving | [address] | [place] | | | | | [place] | [address] | [place] | | | | | coronary | [address] | [address] | | | | | artery of | Phone: | Phone: | | | | | [place] heart | [phone] | [phone] | | | | | without | Fax: | Fax: | | | | | angina | [phone] | [phone] | | | | | pectoris | | | + + + + + + + Encounter Details +--------+---------+ + + + | Date | Type | Department | Care Team | Description | +--------+---------+ + + + | 12/02/ | Office | [facility] | Randy Figueroa, | Coronary artery | | 2019 | Visit | [facility] CARD[facility] | MD [address] | disease involving | | | | REHABILITATION [address] | [place], | [place] coronary | | | | [address] | [place] [address] | artery of y[place] | | | | [place] [address] | [phone] | heart without angina | | | | [phone] | | pectoris (Primary | | | [...] of this encounter Progress Gael Ortega - 12/02/2018 1000 PDTFormatting of this note might be different from the orig [facility] CARDIAC REHABILITATION [address] [facility] [address] Cardiac Rehab Date: 12/02/2018 Patient Information Patient Name: Bob Will Date of : 1955 Age: 63 y.o. Encounter Diagnoses Code Name Primary? I25.10 Coronary artery disease involving yurok coronary artery of [place] heart without angina pectoris Yes Z98.61 Post [...] 12/02/2018 14:45 Patient Name: Bob Will/: 1955/ ly signed by Gael Woo at 12/02/2018 14:48 PDTdocumented in this encounter Plan of Treatment +--------+ + + + + | Date | Type | Specialty | Care Team | Description | +--------+ + + + + | 03/08/ | Office | Nephrology | [facility], | | | 2018 | Visit | | ADARSH [address] | | | | | | [address] , [facility] | | | | | | [address] | | | | | | [address] | | | | | | | | +--------+ + + + + | 03/24/ | Procedure | Cardiology | | | | 2018 | visit | | | | +--------+ + + + + | 03/24/ | Office | Cardiology | Jenyn, | | | 2018 | Visit | | ADARSH Santo [address] | | | | | | [place], | | | | | | [place] [address] | | | | | | [phone] | | | | | | | | +--------+ + + + + documented as of this encounter Visit Diagnoses + + | Diagnosis | + + | Coronary artery disease involving yurok coronary artery of yurok heart without | | angina pectoris - Primary | + + | Post PTCA Postsurgical percutaneous transluminal coronary angioplasty status | + + documented in this encounter"
--- OUTSIDE RECORDS SUMMARY | ~2019-02-08 | XMS | Encounter Summary ---
Demographics + + + | Address | [address] | | | [place] [address] | + + + | Home Phone [...] | [place] | | | | | [address] | | + + + + + Care Team Providers + +------+ + | Care Hospitalist Nocturnist Physician Name | Role | Phone | + [...] | | | involving | [address] | [place] | | | | | [place] | [address] [address] | [place] | | | | | coronary | [address] | [address] | | | | | artery of | Phone: | Phone: | | | | | [place] heart | [phone] | [phone] | | | | | without | Fax: | Fax: | | | | | angina | [phone] | [phone] | | | | | pectoris | | | + + + + + + + Encounter Details +--------+---------+ + + + | Date | Type | Department | Care Team | Description | +--------+---------+ + + + | 11/23/ | Office | [facility] | Rahullindacathy Lindaangusleo, | Acute on chronic | | 2019 | Visit | MED CTR CARDIAC | MD [address] | systolic congestive | | | | REHABILITATION [address] | [place], | heart failure (HCC) | | | | [address] [place] | [place] [address] | (Primary Dx) | | | | [place] [address] | [phone] | | | | | [phone] | | | +--------+---------+ + + + [...] of this encounter Progress Jonah Coker-Cheri Kendrick, WOOD CABINETMAKER - 11/23/2018 1000 PDTFormatting of this note might be diff erent from the original. [facility] CARDIAC REHABILITATION [address] [facility] [address] Cardiac Rehab Date: 11/23/2018 Patient Information Patient [...] | 03/08/ | Office | Nephrology | [facility], | | | 2018 | Visit | | ADARSH [address] | | | | | | [address] , [facility] | | | | | | [address] [place] | | | | | | [id number] | | | | | | | | +--------+ + + + + | 03/24/ | Procedure | Cardiology | | | | 2018 | visit | | | | +--------+ + + + + | 03/24/ | Office | Cardiology | Jenny, | | | 2018 | Visit | | ADARSH Santo [address] | | | | | | [place], | | | | | | [place] [address] | | | | | | [phone] | | | | | | | | +--------+ + + + + documented as of this encounter Visit Diagnoses + + | Diagnosis | + + | Acute on chronic systolic congestive heart failure (HCC) - Primary Acute on chronic | | systolic heart failure | + + documented in this encounter"
--- OUTSIDE RECORDS SUMMARY | ~2019-02-08 | XMS | Encounter Summary ---
Demographics + + + | Address | [address] | | | [place] [address] | + + + | Home Phone [...] | Author | [facility] | | | and [place] | + + + | Organization | [facility] | | | and [place] | + + + | Address | Unknown | + + + | Phone | Unavailable | + + + Support + + + + + | Name | Relationship | Address | Phone | + + + + + | Venice Will | ECON | [place] | | | | | [address] | | + + + + + Care Team Providers + +------+ + | Care Plumbing Inspector Name | Role | Phone | [...] | 12/06/ | Refill | [facility] [place] | Jenny, | Medication Refill | | 2018 | | CARDIOLOGY [address] | ADARSH Santo [address] | | | | | [place], | [place], | | | | | [place] [address] | [place] [address] | | | | | [phone] | [phone] | | | | | | | [...] [place] | | | | | | [address] | | | | | | | [...] | | | | | | [place] [address] | | | | | | [phone] | | | | | | | | +--------+ + + + + documented as of this encounter Visit Diagnoses Not on filedocumented in this encounter"
--- OUTSIDE RECORDS SUMMARY | ~2019-02-08 | XMS | Encounter Summary ---
Demographics + + + | Address | [address] | | | [place] [address] | + + + | Home Phone [...] | [place] | | | | | [address] | | + + + + + Care Team Providers + +------+ + | Care Charge Coordinator Name | Role | Phone | [...] | | | involving | [address] | [place] | | | | | [place] | [address] | [place] | | | | | coronary | [address] | [address] | | | | | artery of | Phone: | Phone: | | | | | [place] heart | [phone] | [phone] | | | | | without | Fax: | Fax: | | | | | angina | [phone] | [phone] | | | | | pectoris | | | + + + + + + + Encounter Details +--------+---------+ + + + | Date | Type | Department | Care Team | Description | +--------+---------+ + + + | 11/30/ | Office | [facility] | Carolina Randy, | Coronary artery | | 2019 | Visit | MED CTR CARDIAC | MD [address] | disease involving | | | | REHABILITATION [address] | [place], | [place] coronary | | | | [address] [place] | [place] [address] | artery of [place] | | | | [place] [address] | [phone] | heart without angina | | | | [phone] | | pectoris (Primary | | | [...] note might be different from the orig [place] [facility] CARDIAC REHABILITATION [address] [facility] [address] Cardiac Rehab Date: 11/30/2018 Patient Information Patient Name: Bob Will Date of : 1955 Age: 63 y.o. Encounter Diagnoses Code Name Primary? I25.10 Coronary artery disease involving [place] coronary artery of [place] heart without angina pectoris Yes Z98.61 Post [...] | 03/08/ | Office | Nephrology | [facility], | | | 2018 | Visit | | ADARSH [address] | | | | | | [address] [facility] | | | | | | [address] | | | | | | [id number] | | | | | | | | +--------+ + + + + | 03/24/ | Procedure | Cardiology | | | | 2019 | visit | | | | +--------+ + + + + | 03/24/ | Office | Cardiology | Jenny, | | | 2018 | Visit | | ADARSH Santo [address] | | | | | | [place], | | | | | | [place] [address] | | | | | | [phone] | | | | | | | | +--------+ + + + + documented as of this encounter Visit Diagnoses + + | Diagnosis | + + | Coronary artery disease involving de[place] coronary artery of [place] heart without | | angina pectoris - Primary | + + | Post PTCA Postsurgical percutaneous transluminal coronary angioplasty status | + + documented in this encounter"
--- OUTSIDE RECORDS SUMMARY | ~2019-02-08 | XMS | Encounter Summary ---
Demographics + + + | Address | [address] | | | [place] [address] | + + + | Home Phone | | + + + | Preferred Language | Unknown | + + + | Marital Status | | + + + | Yarsanism Affiliation | NRP | + + + | Race | White | + + + | Ethnic Group | Not or | + + + Author + + + | Author | [facility] | + + + | Organization | [facility] | + + + | Address | Unknown | + + + | Phone | Unavailable | + + + Support + + + + + | Name | Relationship | Address | Phone | + + + + + | Venice Mckeon | ECON | [address] | | | | | [place] [address] | | + + + + + Care Team Providers + +------+ + | Care Broomcorn Grader Name | Role | Phone | + [...] | 2018 | Encounter | Services at [facility] | | | | | | [address] | | | | | | [facility] | | | | | | Mailcode: [address] | | | | | | [facility] | | | | | | [place], [place] | | | | | | [address] | | | | | | [phone] | | | +--------+ + + + [...] | + + + | Report ====== Global Supply Chain Vice President: Rodríguez Fortune ([id number]), shubham | [facility] | | richy Director Of Psychiatry: shubham lockhart Fellow: shubham lockhart | RADIOLOGY | | Wallcovering Texturer: shubham lockhart Viewer: shubham lockhart Report Date: | CARDIAC IMAGING | | Oct 2017, 09:22:25 PST Patient ------- Patient: RON MCKEON | | | Acc #: [id number] | | | Ethnicity: N Status: Final [...] | | | Image Quality: Good Scanner Wood Tank Builder: Hometica Scanner | | | Model: ABODO Scanner Serial Number: [id number] Scanner Software | | | Platform: [id number] Staff: Rodríguez Fortune Modality: MR | | | Indication Name: routine Protocol Name: CMR W Flows WO Contrast | | | Findings -------- Non-cardiac findings were reviewed by Dr. Curtis. | | | This exam was terminated prematurely and is lmiited to filler sifter machine images. | | | There are bilateral [...] - 10/16/2017 9:22 AM PST | | Report======Global Supply Chain Vice President: Rodríguez Fortune ([id number]), shubham Rodriguezalyst: shubham | | Zackeryow: shubham Beckician: shubham Beckwithwer: shubham | | Judiort Date: 16 Oct 2017, 09:22:25 PSTPatient-------Patient: RON MCKEON | | JMedical Record Number: [id number] ID: [id number] #: [id number]: [id number]: | | Final ReportReport Number: [id number]: MaleBirthdate: 1955 (61 yrs)Study Date: 05 | | Oct 2017Study Description: CMR with Flows with ContrastReferring Physician: RAJIV | | HEITNERBlood Pressure: /Heart rate:Height (cm): 0Weight (kg): 89BMI (kg/m ): 0BSA | | (m ): 0 (Mosteller Formula)Image Quality: [employer] Wood Tank Builder: Comply365 | | [employer] Model: STEMpowerkids Serial Number: [id number] Software Platform: | | 5.3.15.3.1.0Staff: Rodríguez FortuneModality: MRIndication Name: routineProtocol Name: | | CMR W Flows WO ContrastFindings--------Non-cardiac findings were reviewed by | | Ever.This exam was terminated prematurely and is lmiited to filler sifter machine images.There are | | bilateral pleural effusions. [...] Formula) | |Image Quality: Good | |Scanner Wood Tank Builder: Hometica | |Scanner Model: ABODO | |Scanner Serial Number: [id number] | |Scanner Software Platform: 5.3.15.3.1.0 | |Staff: Rodríguez Fortune | |Modality: MR | |Indication Name: routine | |Protocol Name: CMR W Flows WO Contrast | |Findings | |-------- | |Non-cardiac findings were reviewed by Dr. Curtis. | |This exam was terminated prematurely and is lmiited to filler sifter machine images. | |There are bilateral pleural effusions. [...]
--- OUTSIDE RECORDS SUMMARY | ~2019-02-08 | XMS | Encounter Summary ---
Demographics + + + | Address | [address] | | | [place] [address] | + + + | Home Phone [...] [place] | | | | | [address] | | + + + + + Care Team Providers + +------+ + | Care Pre School Manager Name | Role | Phone | [...] NEPHROLOGY [address] | MD [address] | | | | | [address] | [address] [place] | | | | | [place], [place] | [place] [address] | | | | | [address] | [phone] | | | | | [phone] | | | +--------+ + + + [...] Nephrology | [facility], | | | 2019 | Visit | | ADARSH [address] | | | | | | [address] [place], [place] | | | | | | [address] | | | | | | [address] | | | | | | | | +--------+ + + + + | 03/24/ | Procedure | Cardiology | | | | 2019 | visit | | | | +--------+ + + + + | 03/24/ | Office | Cardiology | Jenny, | | | 2018 | Visit | | ADARSH Santo [address] | | | | | | [address], | | | | | | [place] [address] | | | | | | [phone] | | | | | | | [...]
--- OUTSIDE RECORDS SUMMARY | ~2019-02-08 | XMS | Encounter Summary ---
Demographics + + + | Address | [address] | | | [place] [address] | + + + | Home Phone | | + + + | Preferred Language | Unknown | + + + | Marital Status | | + + + | Cheondoism Affiliation | NRP | + + + [...] | | | | | [place] [address] | | + + + + + Care Team Providers + +------+ + | Care Dredge Engineer Name | Role | Phone | [...] | | | | | | [place] [address] | | | +--------+--------+ + + + [...]
--- OUTSIDE RECORDS SUMMARY | ~2019-02-08 | XMS | Encounter Summary ---
Demographics + + + | Address | [address] | | | [place] [address] | + + + | Home Phone [...] | | | | | [place] [address] | | + + + + + Care Team Providers + +------+ + | Care Networking Administrator Name | Role | Phone | [...] 03/19/ | Surgery | 6A Intra Op [facility] | Siria Preston | DECANNULATION | | 2017 | | [facility] | [address] | | | | | Admitting Desk | Tabitha Alice[employer], | | | | | Located on the | [place] [phone] | | | | | floor [address] [facility] | [phone] | | | | | [facility] [address] | | | | | | [place], [place] | | | | | | [address] | | | +--------+---------+ + + + [...] 2:26 PM PDT CLINICAL HOSPITALIST DISCHARGE SUMMARY [facility] Discharging Provider: Aria Rojas MD Discharging [...] follow up ludmila miller with a local medical insurance clerk in [place]. #Acute cardiogenic shock in the setting ofSTEMI [...] 44 to 32 during first day at [facility] , with addition decline to [...] (noted on o utside records). Patient on [place] 10/325 q8 as outpatient. Was receiving scheduled [...] then take 7.5 mg (one and one-h assisted tablets) daily starting 04/03/2017 Indications: JAVON thrombus, [...] Number [facility] Yes [phone] [place] [phone] Medina Roger RN 04/02/2017 11:31 Medina Roger RN, 04/02/2017 11:28 AM: Spoke with Latricia, 7 day auth # [id number] has been provided. Contacted Tanisha at facility , arranging anticipated medicaid transport by stretcher at 2 pm today. Spoke with patient and souse concerning dc; they are both in agreement. Medina Roger RN, 04/02/2017 9:20 AM: Contacted Latricia Landry [phone] referencing auth# for SNF placement. Medina Roger RN, 04/01/2017 11:42 AM: Spoke with Malathi [phone], at facility admissions. Patient is accepted to facility. Prov ided information for information anesthesiologist and critical care with [facility] Fed Latricia Landry [phone], Tanisha moncada pursue auth and get back to me. F&MS working with patient and family to add Medicaid ser vices to benefits. When added patient will have travel benefit. CM contacted Shahab Holman re [employer] training. Tamia Van, RN, 03/30/2017 1:21 PM: Received VM from Emily Terrell CM with [facility] to send referral to this location . Referral made, awaiting response. Follow Up: Schedule the following appointment(s) when you get home Follow up with [facility] . Specialties: [facility], [facility] Facility Contact information [address] [place] [phone] Follow up with LAUREN CHESTER MD. Go on 04/07/2017. Specialty: Cardiology Why: at 8:30 AM to establish Cardiology follow up Contact information [facility] [address] [address] Aria Rojas MD Division of Hospital Medicine Counts Include 234 Beds At [facility] I spent 60 minutes on discharge activities on the day of discharge, including counseling of the patient and his regarding his discharge plan and in coordination of care on the ok rd with nursing, pharmacy, and Heart Failure.Electronically [...] and chronic pain who was transferred to [facility] on 03/15 s/p STEMI with [...] will need [employer] V[employer] follow up with medical insurance clerk in [place] on discharge - appr [facility] cardiology assistance with coordinating. -Will f/u further [...] hematoma, but possibly some candidal infection/intertrigo. On Dresden 10 Q8H as an outp atient. -Continue nystatin [...] 44 to 32 during first day at [facility], with addition decline to 24 [...] Aria Rojas MD Division of Hospital Medicine Counts Include 234 Beds At The [facility] Pager [phone] I spent 36 minutes on the patient [...] Labs 03/29/17 0736 03/30/17 0030 03/30/17 1249 03/30/176 03/31/17 0345 NA 131* -- < > [...] and chronic pain who was transferred to [facility] on 03/15 s/p STEMI with [...] will need Life Vest follow up with medical insurance clerk in [place] on discharge - appr [facility] cardiology assistance with coordinating. Hyperkalemia Resolved with [...] hematoma, but possibly some candidal infection/interrigo. On Dresden Q8H as an outpa tient. -Continue nystatin [...] discharge. -CM looking for skilled placement in [place] near patient's home; appreciate assistance At risk for malnutrition Very little PO intake but reportedly improving. Previously had dobhoff feeding tube in the CVICU.Nutrition assistance appreciated. -Calorie count ongoing -Encouraging PO intake Normocytic anemia Hct dropped abruptly from 44 to 32 during first day at [facility], with addition decline to 24 [...] Aria Rojas MD Division of Hospital Medicine Counts Include 234 Beds At [facility] Pager [phone] I spent 36 minutes on the patient encounter today, >50% in counseling of the patient's on the above plan of care and in coordination of care on the arizmendi with nursing and Heart Fa ilure. Ariana Ivy DO - 03/30/2017 5:49 PM PDT CLINICAL HOSPITALIST SERVICE PROGRESS NOTE PATIENT'S NAME/MRN: Ron Mckeon/[id number] HOSPITAL DAY: #15 24-HOUR EVENTS & SUBJECTIVE: -patient complained of typical anginal chest pain and had STEMI code last night, anterior S T elevation on serial EKGs, given 325mg ASA, started on heparin drip (had been turned off fo r JAVON thrombus yesterday afternoon with warfarin therapeutic), patient went to the assistant laboratory director -on angiography, interventionalists noted "patent stent traversing [...] daily - Patient will follow up with medical insurance clerk in [place] on discharge; appreciate cardiolo gy assistance with [...] stenosis (noted on o utside records, on D[place]den q8 as outpatient) Improved today -continue oxycodone [...] discharge. -CM looking for skilled placement in [place] near patient's home; appreciate assistance #Risk for malnutrition Very little PO intake, improving today. Previously had dobhoff feeding tube in the CVICU.Nu trition assistance appreciated. -Calorie count ongoing -Encouraging PO intake #Anemia, normocytic Pt noted to have anemia on H&P. Hct dropped abruptly from 44 to 32 during first day at [facility] , with addition decline to [...] assistance Barriers for DC: delivery/approval of lifevest, [facility] bed Ariana Bose DO Pressure Vessel Inspectorsample checker Clinical Hospitalist and Medicine Teaching Service Division of Hospital Medicine Counts Include 234 Beds At [facility] Pager [phone] [facility] DEPARTMENT: Hosp- [phone] Place of Service: - Date of Service: 03/26/2017 CSN: [id number] Modifiers:GC Resident Involved: Yes Suggested CPT: 88115 Subsequent Visit Detailed/High complexity 35 min Cristi [...] given continued elevated Tn, patient's significant recent VT, we activated the assistant laboratory director. Patient received 325 mg ASA at bedside and was briefly on heparin which has since been disc ontinued. Per cardiology will continue daily 81 mg ASA, plavix and warfarin. Continue to t rend troponins as well. I spent 30 minutes with this patient with >50% of the time evaluating patient at the [facility] e on numerous occasions, evaluating studies and coordinating care w/ cardiology.Electronical ly signed by Ivette Chaudhry MD at 03/30/2017 6:24 AM Gerson Oseguera MD - 03/30/2017 4:31 AM PDTCardiology Preliminary Procedure Note (Full report to follow) Primary Care Provider: Jamal Guerrero MD Referring Provider: No Referring Provider Per Patient Anthropology Faculty Member Staff: Katarina Ngo M.D. Procedure(s): Coronary Angiography [...] None Complications: None Hemostasis: Manual compression in assistant laboratory director. Site: [facility] Recommendations: Patient Status: Inpatient Usual post cath care. Ariana Ivy D O - 03/29/2017 9:30 AM PDT CLINICAL HOSPITALIST SERVICE PROGRESS NOTE PATIENT'S NAME/MRN: Ron Mckeon/[id number] HOSPITAL DAY: #14 24-HOUR EVENTS & SUBJECTIVE: [...] 2 Units, 2 Units, subcutaneous, Q12H (Scheduled), Ginaoh geno Alvarado MD, 2 Units at 03/28/172206 ipratropium-albuterol (DUO-NEB) nebulizer solution 3 mL, 3 mL, inhalation, Q6H PRN, Terry Ochoa MD lidocaine (XYLOCAINE) 5 % ointment, , topical, PRN, Ariana Bose DO lisinopril (PRINIVIL) tablet 5 mg, 5 mg, oral, BID, Ariana Bose DO, 5 mg at 7 0847 melatonin tablet 3 mg, 3 mg, oral, QPM, Jeet Ramírez MD, 3 mg at 03/28/17 2142 menthol-zinc oxide (CALAZIME) topical paste 0.2%-16.5%, , [...] stenosis (noted on o utside records, on Dresden 10/ q8 as outpatient) -continue oxycodone 10mg q4 hours as above -consider other pain control such as Duloxetine 30mg daily for chronic pain #AJVON thrombus Noted on MARKY in the [place] [...] 44 to 32 during first day at [facility] , with addition decline to [...] arm, midline left arm Ariana Bose DO Pressure Vessel Inspectorsample checker Clinical Hospitalist and Medicine Teaching Service Division of Hospital Medicine Counts Include 234 Beds At [facility] Pager [phone] [facility] DEPARTMENT: Hosp- [phone] Place of Service: - Date of Service: 03/26/2017 CSN: [id number] Modifiers:GC Resident Involved: Yes Suggested CPT: 84016 Subsequent Visit Detailed/High complexity 35 min Ariana Ivy DO - 03/28/2017 8: 06 AM PDT CLINICAL HOSPITALIST SERVICE PROGRESS NOTE PATIENT'S NAME/MRN: Ron Mckeon/[id number] HOSPITAL DAY: #13 24-HOUR EVENTS & SUBJECTIVE: [...] 5 mg, 5 mg, oral, BID, Ariana Bose, , 5 mg at 2207 melatonin tablet 3 [...] 17 g, 17 g, oral, BID, Gaurav M Hobbs, PA-C polyethylene glycol (MIRALAX) packet 34 g, [...] stenosis (noted on o utside records, on [place] 10 q8 as outpatient) Improving L groin [...] 44 to 32 during first day at [facility] , with addition decline to [...] arm, midline left arm Ariana Bose DO Pressure Vessel Inspectorsample checker Clinical Hospitalist and Medicine Teaching Service Division of Hospital Medicine Counts Include 234 Beds At [facility] Pager [phone] [facility] DEPARTMENT: Hosp- [phone] Place of Service: - Date of Service: 03/26/2017 CSN: [id number] Modifiers:GC Resident Involved: Yes Suggested CPT: 91253 Subsequent Visit Detailed/High complexity 35 min Ariana [...] 2 Units, 2 Units, subcutaneous, Q12H (Scheduled), Alexand geno Alvarado MD, 2 Units at 03/26/17 2209 ipratropium-albuterol (DUO-NEB) nebulizer solution 3 mL, 3 [...] 10-15 mg, 10-15 mg, oral, Q3H PRN, Teryr Ochoa MD, 15 mg at 03/27/17 0340 [...] also followed by Advanced Heart Failure se rvjenna. #Acute cardiogenic shock in the setting of [...] 44 to 32 during first day at [facility] , with addition decline to [...] arm, midline left arm Ariana Bose DO Pressure Vessel Inspectorsample checker Clinical Hospitalist and Medicine Teaching Service Division of Hospital Medicine [facility] Pager [phone] [facility] DEPARTMENT: Hosp- [phone] Place of Service: - Date of Service: 03/26/2017 CSN: [id number] Modifiers:GC Resident Involved: Yes Suggested CPT: 36838 Subsequent Visit Detailed/High complexity 35 min Chapis [...] 40 mg, 40 mg, oral, DAILY, Jeet D Darrell, MD, 40 mg at 0854 bisacodyl (DULCOLAX) suppository 10 mg, 10 mg, rectal, DAILY PRN, Gaurav Hobbs PA-C calcium gluconate IV 1 gram in NS (PREMADE), 1 g, intravenous, PRN, Gaurav Hobbs PA-C captopril (CAPOTEN) tablet 25 mg, 25 mg, oral, Q8H, Venice Butcher, ACNP, 25 mg at 2144 cholecalciferol (Vitamin D3) (VITAMIN D-3) tablet 1,000 Units, 1,000 Units, oral, DAILY, Amol Alvarado MD, 1,000 Units at 03/25/172143 clopidogrel (PLAVIX) tablet 75 mg, 75 mg, [...] oral, Q3 H PRN, 10 mg at 03/24/170 OR oxyCODONE (immediate release) (ROXICODONE) liquid 5-10 [...] 44 to 32 during first day at [facility] , with addition decline to [...] arm, midline left arm Ariana Bose DO Pressure Vessel Inspectorsample checker Clinical Hospitalist and Medicine Teaching Service Division of Hospital Medicine [facility] Pager [phone] [facility] DEPARTMENT: Hosp- [phone] Place of Service: - Date of Service: 03/26/2017 CSN: [id number] Modifiers:GC Resident Involved: Yes Suggested CPT: 06318 Subsequent Visit Detailed/High complexity 35 min Wan Cano MD - 03/25/2017 3:07 PM PDT . Cardiovascular Intensive Care Unit Attending Progress Note CVICU D2 Assigned #[id number] ICU Admission Reason Most Recent Value ICU [...] artery. ANY X2 placed in outs surinder assistant laboratory director along with IABP. Arrived in cardiogenic shock, [...] Pager Mellisa Haji MD Admitting Provider Cardiology 82010 Zelalem Del Toro MD ICU PM Attending Anesthesiology 45772 Code Status Code Status Full Code The Advanced Care Note for this patient can be found under the notes tab in chart review. Quality section Reardon necessity reviewed: Hourly/Accurate measurement of urinary output for clinical manage ment of critically ill patients Wan Deleon MD, JOHN, ERVIN Cardiovascular Intensive Care Unit [address] [address] I have spent a total of 38 [...] xceptions/additions as noted. Date of Service: 03/25/2017 [facility] DEPARTMENT: ANE ICU CARDIAC Place of Service:- Inpatient CSN: [id number] Suggested Modifier: GC - Resident Involved Suggested CPT: TO WELD INSPECTOR Jose Ramon Khan MD - 03/24/2017 10:54 AM PDT . Cardiovascular Intensive Care Unit Team Progress Note CVICU D2 Assigned #[id number] ICU Admission Reason Most Recent Value ICU [...] artery. ANY X2 placed in outs surinder assistant laboratory director along with IABP. Arrived in cardiogenic shock, [...] & Plan Patient went into VFib during assistant laboratory director procedure at [facility]. Was shocked 17 times Targeted temperature management [...] edema. Patient was difficult intubation at outside assistant laboratory director. -secretions improving, cough strong -s/p 7 days [...] Pager Mellisa Haji MD Admitting Provider Cardiology 65774 Zelalem Del Toro MD ICU PM Attending Anesthesiology 01063 The Advanced Care Note for this patient [...] Ramon Alvarado MD Author:Jose Ramon Alvarado MD [address] [id number] signed by Jose Ramon Alvarado MD at 03/24/2017 11:00 AM Wan Cano MD - 03/24/2017 9:47 AM PDTFormatting of this note might be diff erent from the original. Cardiovascular Intensive Care Unit Attending Progress Note CVICU D2 Assigned #[id number] ICU Admission Reason Most Recent Value ICU [...] artery. ANY X2 placed in outs surinder assistant laboratory director along with IABP. Arrived in cardiogenic shock, [...] Pager Mellisa Haji MD Admitting Provider Cardiology 55227 Zelalem Del Toro MD ICU PM Attending Anesthesiology 25679 Code Status Code Status Full Code The Advanced Care Note for this patient can be found under the notes tab in chart review. Quality section Reardon necessity reviewed: Hourly/Accurate measurement of urinary output for clinical manage ment of critically ill patients Wan Deleon MD, JOHN, ERVIN Cardiovascular Intensive Care Unit [address] [address] I have spent a total of 42 [...] xceptions/additions as noted. Date of Service: 03/24/2017 [facility] DEPARTMENT: ANE ICU CARDIAC Place of Service:- Inpatient CSN: [id number] Suggested Modifier: GC - Resident Involved Suggested CPT: TO WELD INSPECTOR Author:Wan Deleon Md, MD [address] [id number] signed by Wan Deleon MD at 03/24/2017 9:49 AM PDTToTamia lieberman PA-C - 03/23/2017 11:54 PM PDTFormatting of this note might be diff erent from the original. Cardiovascular Intensive Care Unit Clinical Update Note Team: D2 Team Pager: [phone] Attending: Katey Pt Name: Ron Mckeon ID: Abbreviated HPI Abbreviated HPI / Daily Assessment Ron Mckeon is a 61 year old man with acute cardiogenic shock in the setting of acu te STEMI from thrombosed left main coronary artery. Initially had lesion in proximal LAD and distal LM, but then acutely thrombosed his left main coronary artery. ANY X2 placed in outs surinder assistant laboratory director along with IABP. Arrived in cardiogenic shock, [...] Unit Team Progress Note CVICU D2 Assigned #[id number] ICU Admission Reason Most Recent Value ICU [...] acutely thrombosed his left main coronary artery. AYN X2 placed in outs surinder assistant laboratory director along with IABP. Arrived in cardiogenic shock, [...] & Plan Patient went into VFib during assistant laboratory director procedure at [facility]. Was shocked 17 times Targeted temperature management [...] edema. Patient was difficult intubation at outside assistant laboratory director. -fevering nightly, cultures negative, WBC stable -secretions [...] Pager Mellisa Haji MD Admitting Provider Cardiology 22482 The Advanced Care Note for this patient [...] Ramon Alvarado MD Author:Jose Ramon Alvarado MD [address] [address] [place] [id number] signed by Jose Ramon Alvarado MD at 03/23/2017 11:41 AM Wan Cano MD - 03/23/2017 9:51 AM PDTFormatting of this note might be diff erent from the original. Cardiovascular Intensive Care Unit Attending Progress Note CVICU D2 Assigned #[id number] ICU Admission Reason Most Recent Value ICU [...] artery. ANY X2 placed in outs surinder assistant laboratory director along with IABP. Arrived in cardiogenic shock, [...] Pager Mellisa Haji MD Admitting Provider Cardiology 33227 Code Status Code Status Full Code The Advanced Care Note for this patient can be found under the notes tab in chart review. Quality section A-Line necessity reviewed: Plan to DC today Reardon necessity reviewed: Hourly/Accurate measurement of urinary output for clinical manage ment of critically ill patients Currently at risk for: delirium, stroke, VT, arrythmia, tamponade, PE, respiratory failure, ARDS, aspiration, AYLIN / ARF, coagulopathy, DVT, stress ulcers, sepsis, BONIFACIO, electrolyte per turbations, malnutrition, deconditioning and decubiti. Wan Deelon MD, JOHN, ERVIN Cardiovascular Intensive Care Unit [address] [address] I have spent a total of 44 [...] xceptions/additions as noted. Date of Service: 03/23/2017 [facility] DEPARTMENT: [facility] ICU CARDIAC Place of Service:- Inpatient CSN: [id number] Suggested Modifier: GC - Resident Involved Suggested CPT: TO WELD INSPECTOR Tamia De La Paz PA-C - 03/22/2017 7:58 PM PDT . Cardiovascular Intensive Care Unit Clinical Update Note Team: D2 Team Pager: [phone] Attending: Abdulaziz Merrill Name: Ron Mckeon ID: [...] Unit Attending Progress Note CVICU D2 Assigned #[id number] ICU Admission Reason Most Recent Value ICU [...] long tobacco abuse history, presenting with acute VT and STEMI, resu ltant cardiogenic shock refractory [...] Pager Mellisa Haji MD Admitting Provider Cardiology 78533 Code Status Code Status Full Code Quality section A-Line necessity reviewed: Cyjw-kc-zebh blood pressure monitoring Reardon necessity reviewed: Hourly/Accurate [...] Date of Service: 03/22/2017 Author:Anurag Ashby MD [address] [id number] signed by Anurag Ashby MD at 03/22/2017 11:07 AM P Macho Sellers MD - 03/22/2017 11:00 AM PDT Cardiovascular Intensive Care Unit Team Progress Note CVICU D2 Assigned #[id number] ICU Admission Reason Most Recent Value ICU [...] & Plan Patient went into VFib during assistant laboratory director procedure at [facility]. Was shocked 17 times Targeted temperature management [...] FIO2 to maintain sats Vent on PS /10/45%, RR in high 20s PRN ABGs Sedation [...] edema. Patient was difficult intubation at outside assistant laboratory director. -vanc zosyn stopped 03/17 -fever 38.3 last [...] Pager Mellisa Haji MD Admitting Provider Cardiology 09199 This patient does not have an Advanced Care Note for this Admission. Please use the Goal of care section of your ICU navigator to document the advanced care discussion. Quality section A-Line necessity reviewed: Edyi-pv-ysgq blood pressure monitoring Reardon necessity reviewed: Hourly/Accurate measurement of urinary output for clinical manage ment of critically ill patients FAST HUG Feeding: Tube Feeds: Replete @ 55 mL/hr Analgesia: APAP, hydromorphone PRN Sedation: N/A Thromboprophylaxis: Heparin infusion Head of Bed: Head of Bed >30 degrees Ulcer Prophylaxis: Famotidine Glycemic Control: insulin infusion Created by Macho Gaytan MD Author:Macho Gaytan MD [address] [id number] signed by Macho Gaytan MD at 03/23/2017 12:35 PM PDTT Tamia leon PA-C - 03/21/2017 7:02 PM PDTFormatting of this note might be different f rom the original. Cardiovascular Intensive Care Unit Clinical Update Note Team: D2 Team Pager: [phone] Attending: Abdulaziz Merrill Name: Ron Mckeon ID: [...] Opens eyes, nods head. Follows commands for court commissioner and Plan: Hospital Problems Priority POA Head/Neck [...] Unit Team Progress Note CVICU D2 Assigned #[id number] ICU Admission Reason Most Recent Value ICU [...] & Plan Patient went into VFib during assistant laboratory director procedure at [facility]. Was shocked 17 times Targeted temperature management [...] edema. Patient was difficult intubation at outside assistant laboratory director. -vanc zosyn stopped 03/17 -fever 38.3 last [...] Pager Mellisa Haji MD Admitting Provider Cardiology 62089 This patient does not have an Advanced Care Note for this Admission. Please use the Goal of care section of your ICU navigator to document the advanced care discussion. Quality section A-Line necessity reviewed: Yung-fe-meln blood pressure monitoring CVC necessity reviewed: Hemodynamic [...] by Macho Gaytan MD Author:Macho Gaytan MD [address] [id number] signed by Macho Gaytan MD at 03/21/2017 1:43 PM PDTM Anurag coates MD - 03/21/2017 12:22 PM PDT Cardiovascular Intensive Care Unit Attending Progress Note CVICU D2 Assigned #[id number] ICU Admission Reason Most Recent Value ICU [...] long tobacco abuse history, presenting with acute VT and STEMI, resu ltant cardiogenic shock refractory [...] Pager Mellisa Haji MD Admitting Provider Cardiology 09766 Code Status Code Status Full Code Quality section A-Line necessity reviewed: Nktn-sf-vytk blood pressure monitoring CVC necessity reviewed: Plan [...] Date of Service: 03/21/2017 Author:Anurag Ashby MD [address] [address] [place] [id number] signed by Anurag Ashby MD at 03/21/2017 12:22 PM P Jose Ramon Coburn MD - 03/20/2017 12:36 PM PDTFormatting of this note might be differen t from the original. Cardiovascular Intensive Care Unit Team Progress Note CVICU D2 Assigned #[id number] ICU Admission Reason Most Recent Value ICU [...] & Plan Patient went into VFib during assistant laboratory director procedure at [facility]. Was shocked 17 times Targeted temperature management [...] 92% Does not tolerate V/AC On PS, 5/ at 50% Fi At risk for electrolyte imbalance Unknown Current Assessment & Plan Renal function set and magnesium daily ICU lytes protocol begun 03/16 PM as EGFR came below 60 K > 4.5, Mag > 2.5 Opacity of lung on imaging study Unknown Current Assessment & Plan Greatest in RUL. Asp pna vs pulmonary edema. Patient was difficult intubation at outside assistant laboratory director. -vanc zosyn stopped 03/17 -fever 38.3 last [...] Pager Mellisa Haji MD Admitting Provider Cardiology 13367 Quality section A-Line necessity reviewed: Nmim-yd-pupp blood pressure monitoring CVC necessity reviewed: Hemodynamic [...] Ramon Alvarado MD Author:Jose Ramon Alvarado MD [address] [id number] signed by Jose Ramon Alvarado MD at 03/20/2017 12:49 PM PDTMoulton, Anurag Soni MD - 03/20/2017 12:18 PM PDTFormatting of this note might be differen t from the original. Cardiovascular Intensive Care Unit Attending Progress Note CVICU D2 Assigned #[id number] ICU Admission Reason Most Recent Value ICU [...] long tobacco abuse history, presenting with acute VT and STEMI, resu ltant cardiogenic shock refractory [...] Pager Mellisa Haji MD Admitting Provider Cardiology 37039 Code Status Code Status Full Code Quality section A-Line necessity reviewed: Grup-pt-fdph blood pressure monitoring CVC necessity reviewed: Medication [...] Date of Service: 03/20/2017 Author:Anurag Ashby MD [address] [address]Ajyyfvbozosvko signed by Anurag Ashby MD at 03/20/2017 12:18 PM P Raul Conte MD - 03/19/2017 11:01 PM PDTFormatting of this note might be different fro m the original. Cardiovascular Intensive Care Unit Attending Progress Note CVICU D2 Assigned #[id number] ICU Admission Reason Most Recent Value ICU [...] long tobacco abuse history, presenting with acute VT and STEMI, resu ltant cardiogenic shock refractory [...] Pager Mellisa Haji MD Admitting Provider Cardiology 50957 Code Status Code Status Full Code Quality section A-Line necessity reviewed: Tghf-ec-tolc blood pressure monitoring CVC necessity reviewed: Hemodynamic [...] Date of Service: 03/19/2017 Author:Raul Wei MD [address] [address] [place] [address]Xecbwupbpedovs signed by Raul Wei MD at 03/19/2017 11:01 PM PD TMillerJose Ramon MD - 03/19/2017 4:49 PM PDT Cardiovascular Intensive Care Unit Team Progress Note CVICU D2 Assigned #[id number] ICU Admission Reason Most Recent Value ICU [...] & Plan Patient went into VFib during assistant laboratory director procedure at [facility]. Was shocked 17 times Targeted temperature management [...] edema. Patient was difficult intubation at outside assistant laboratory director. -vanc zosyn stopped 03/17 -fever 38.3 03/17 [...] Pager Mellisa Haji MD Admitting Provider Cardiology 52389 Quality section A-Line necessity reviewed: Fmlr-sa-cqlq blood pressure monitoring CVC necessity reviewed: Hemodynamic monitoring Reardon necessity reviewed: Hourly/Accurate measurement of urinary output for clinical manage ment of critically ill patients FAST HUG Feeding: TFs Analgesia: multimodal Sedation: propofol Thromboprophylaxis: Heparin infusion Head of Bed: Head of Bed >30 degrees Ulcer Prophylaxis: protonix Glycemic Control: insulin infusion Created by Jose Ramon Alvarado MD Author:Jose Ramon Alvarado MD [address] [address]Hvvmthaltuqnas signed by Jose Ramon Alvarado MD at 03/19/2017 4:54 PM Lee Fernandez MD - 03/19/2017 2:22 PM PDTFormatting of this note might be different fr om the original. . Extracorporeal Life Support Service Daily Progress Note Pager #[phone] Type: Veno-Arterial (CPT 61872 or 14862) Date of insertion: 03/15/2017 Diagnosis:Cardiogenic shock Dressing [...] 36/ HCO3: 27.5/ BE: 4.2 Anticoagulation (see NOV) Heparin Assessment: 1 61 y/o M STEMI [...] Unit Attending Progress Note CVICU D2 Assigned #[id number] ICU Admission Reason Most Recent Value ICU [...] long tobacco abuse history, presenting with acute VT and STEMI, resu ltant cardiogenic shock refractory [...] Pager Mellisa Haji MD Admitting Provider Cardiology 40850 Code Status Code Status Full Code Quality section A-Line necessity reviewed: Cxxc-su-ibhy blood pressure monitoring CVC necessity reviewed: Medication [...] Date of Service: 03/19/2017 Author:Anurag Ashby MD [address] P DTJose Ramon Alvarado MD - 03/18/2017 12:56 PM PDTFormatting of this note might be differen t from the original. Cardiovascular Intensive Care Unit Team Progress Note CVICU D2 Assigned #[id number] ICU Admission Reason Most Recent Value ICU [...] & Plan Patient went into VFib during assistant laboratory director procedure at [facility]. Was shocked 17 times Targeted temperature management [...] edema. Patient was difficult intubation at outside assistant laboratory director. -vanc zosyn stopped today Abnormal CK Unknown [...] Pager Mellisa Haji MD Admitting Provider Cardiology 75040 Quality section A-Line necessity reviewed: Hdmy-bl-vdvq blood pressure monitoring CVC necessity reviewed: Hemodynamic monitoring Reardon necessity reviewed: Hourly/Accurate measurement of urinary output for clinical manage ment of critically ill patients FAST HUG Feeding: trickle feeds Analgesia: multimodal Sedation: propofol Thromboprophylaxis: Heparin infusion Head of Bed: Head of Bed >30 degrees Ulcer Prophylaxis: nexium Glycemic Control: insulin infusion Created by Jose Ramon Alvarado MD Author:Jose Ramon Alvarado MD [address] [address]Ozzjmqjthufytg signed by Jose Ramon Alvarado MD at 03/18/2017 1:27 PM PDTMoulton, Anurag Soni MD - 03/18/2017 11:56 AM PDTFormatting of this note might be differen t from the original. Cardiovascular Intensive Care Unit Attending Progress Note CVICU D2 Assigned #[id number] ICU Admission Reason Most Recent Value ICU [...] long tobacco abuse history, presenting with acute VT and STEMI, resu ltant cardiogenic shock refractory [...] Pager Mellisa Haji MD Admitting Provider Cardiology 57986 Code Status Code Status Full Code Quality section A-Line necessity reviewed: Owtc-ok-quxu blood pressure monitoring CVC necessity reviewed: Medication [...] Date of Service: 03/18/2017 Author:Anurag Ashby MD [address] [address]Msbmkhybgfgsmn signed by Anurag Ashby MD at 03/18/2017 11:59 AM Lee Prince MD - 03/18/2017 11:37 AM PDTFormatting of this note might be different from nissa suh original. . Extracorporeal Life Support Service Daily Progress Note Pager #[phone] Type: Veno-Arterial (CPT 17299 or 02278) Diagnosis:Cardiogenic shock Dressing changed: no Dressing Changed [...] Life Support Service Daily Progress Note Pager #[phone] Type: Veno-Arterial (CPT 89884 or 71725) Date of insertion: 03/15/2017 Diagnosis:Cardiogenic shock Dressing [...] might be different from the satish dowd. Cardiovascular Intensive Care Unit Attending Progress Note CVICU D2 Assigned #[id number] ICU Admission Reason Most Recent Value ICU [...] long tobacco abuse history, presenting with acute VT and STEMI, resu ltant cardiogenic shock refractory [...] Pager Mellisa Haji MD Admitting Provider Cardiology 40303 Quality section A-Line necessity reviewed: Evvx-se-eogn blood pressure monitoring CVC necessity reviewed: Rapid [...] Date of Service: 03/17/2017 Author:Raul Wei MD [address] [place] [address]Ubpjslthnbzdth signed by Raul Wei MD at 03/17/2017 9:20 PM PD Anurag Kaba MD - 03/17/2017 1:58 PM PDTFormatting of this note might be different fro m the original. Cardiovascular Intensive Care Unit Attending Progress Note CVICU D2 Assigned #[id number] ICU Admission Reason Most Recent Value ICU [...] long tobacco abuse history, presenting with acute VT and STEMI, resu ltant cardiogenic shock refractory [...] Pager Mellisa Haji MD Admitting Provider Cardiology 45578 Quality section A-Line necessity reviewed: Kalt-ow-hvgv blood pressure monitoring CVC necessity reviewed: Medication [...] Date of Service: 03/17/2017 Author:Anurag Ashby MD [address] [address]Afqcfebnxmkyla signed by Anurag Ashby MD at 03/17/2017 2:00 PM P Mauri Calderon - 03/17/2017 1:01 PM PDTTransthoracic echocardiogram completed. Final r eport to follow. Teddy Ibrahim DO, MS - 03/17/2017 10:00 AM PDT Cardiovascular Intensive Care Unit Team Progress Note CVICU D2 Assigned #[id number] ICU Admission Reason Most Recent Value ICU [...] & Plan Patient went into VFib during assistant laboratory director procedure at [facility]. Was shocked 17 times Targeted temperature management [...] edema. Patient was difficult intubation at outside assistant laboratory director. -vanc zosyn stopped today Abnormal CK Unknown [...] Pager Mellisa Haji MD Admitting Provider Cardiology 63807 This patient does not have an Advanced Care Note for this Admission. Please use the Goal of care section of your ICU navigator to document the advanced care discussion. Quality section A-Line necessity reviewed: Pssi-rg-xdwb blood pressure monitoring CVC necessity reviewed: Hemodynamic monitoring Reardon necessity reviewed: Hourly/Accurate measurement of urinary output for clinical manage ment of critically ill patients FAST HUG Feeding: Tube Feeds Analgesia: apap, oxy, hm Sedation: propofol Thromboprophylaxis: Heparin infusion Head of Bed: Head of Bed Flat Ulcer Prophylaxis: Pantoprazole Glycemic Control: insulin infusion Created by Teddy Kee Do, MS [facility] DEPARTMENT: [facility] ICU CARDIAC Place of Service:- Inpatient CSN: [id number] Suggested Modifier: GC - Resident Involved Suggested CPT: TO WELD INSPECTOR Author:Teddy Kee Do, MS [address] [address]Ervdhkebyzdlob signed by Teddy Kee DO, MS at 03/17/2017 6:35 PM PDTRaul Wei MD - 03/16/2017 7:38 PM PDT Cardiovascular Intensive Care Unit Attending Progress Note CVICU D2 Assigned #[id number] ICU Admission Reason Most Recent Value ICU [...] long tobacco abuse history, presenting with acute VT and STEMI, resu ltant cardiogenic shock refractory [...] Pager Mellisa Haji MD Admitting Provider Cardiology 73097 Quality section A-Line necessity reviewed: Wcdy-pj-rmvj blood pressure monitoring CVC necessity reviewed: Rapid [...] Date of Service: 03/16/2017 Author:Raul Wei MD [facility] [address] [place] [address]Dhhkudmpvbmhkh signed by Raul Wei MD at 03/17/2017 11:03 AM PD Jose Ramon Rodriguez MD - 03/16/2017 5:15 PM PDT Cardiovascular Intensive Care Unit Team Progress Note CVICU D2 Assigned #[id number] ICU Admission Reason Most Recent Value ICU [...] & Plan Patient went into VFib during assistant laboratory director procedure at [facility]. Was shocked 17 times Now on targeted [...] edema. Patient was difficult intubation at outside assistant laboratory director. -bridget retana for now Physical Exam vitals [...] Pager Mellisa Haji MD Admitting Provider Cardiology 68748 Quality section A-Line necessity reviewed: Uaeg-ps-urrv blood pressure monitoring CVC necessity reviewed: Hemodynamic [...] Ramon Alvarado MD Author:Jose Ramon Alvarado MD [address] [address]Eanxqbqmnyrodn signed by Jose Ramon Alvarado MD at [...] checks. Performed by: Teddy Kee Do, MS oultAnurag elkins MD - 03/16/2017 1:22 PM PDT Cardiovascular Intensive Care Unit Attending Progress Note CVICU D2 Assigned #[id number] ICU Admission Reason Most Recent Value ICU [...] ICU Day #2 after being transferred from [facility] in [place] in acute cardiogenic archie ck following an anterior STEMI. Upon arrival to [facility], decision was made to go [...] Pager Mellisa Haji MD Admitting Provider Cardiology 06460 Quality section A-Line necessity reviewed: Igkl-vm-hwwa blood pressure monitoring CVC necessity reviewed: Hemodynamic [...] Date of Service: 03/16/2017 Author:Anurag Ashby MD [address] [address]Ehpwhybnnwrqvl signed by Anurag Ashby MD at 03/16/2017 1:23 PM Lee Prince MD - 03/16/2017 9:41 AM PDTFormatting of this note might be different from t ivkash original. . Extracorporeal Life Support Service Daily Progress Note Pager #[phone] Type: Veno-Arterial (CPT 39168 or 11612) Diagnosis:Cardiogenic shock Dressing changed: no Dressing Changed [...] Clinical Update Note Team: D2 Team Pager: [phone] Attending: Abdulaziz Pt Name: Ron Mckeon ID: Abbreviated HPI [...] Date of Service: 03/16/2017 Mirna Berumen PA-C [facility] DEPARTMENT: [facility] ICU CARDIAC Place of Service:- Inpatient CSN: [id number] Suggested Modifier: None Suggested CPT: TO WELD INSPECTOR Mirna Berumen PA-C Everardo Valladares MD - 03/15/2017 9:04 PM PDT Cardiovascular Intensive Care Unit Attending Progress Note CVICU D2 Assigned #[id number] ICU Admission Reason Most Recent Value ICU Admission reason Cardiogenic Shock filed at 03/15/2017 1531 Hospital admission dx: left anterior descending artery occlusion, needs cabg Days in ICU Days in Hospital Medical Decision Making ICU Day #1 after being transferred from [place] in [place] in acute cardiogenic archie ck following an anterior STEMI. Upon arrival to [facility], decision was made to go [...] Pager Mellisa Haji MD Admitting Provider Cardiology 31033 Quality section A-Line necessity reviewed: Vcmb-kf-ytnq blood pressure monitoring CVC necessity reviewed: Hemodynamic [...] and the recent imaging available. Seen with PA/MEMORIAL DESIGNER Winston Cole. Please see their note for details. I reviewed the documented findings, all data and the recent imaging available. Date of Service: 03/15/2017 Author:Everardo Cintron MD [address] [address]Ffdhdzkefvrnps signed by Everardo Cintron MD at 03/15/2017 9:[address] - 03/15/2017 2:11 PM PDTTransthoracic echocardiogram completed. Final r eport to follow. atrick Ruiz MD,MPH - 03/15/2017 2:00 PM PDT . Extracorporeal Life Support Service Consult Service Note Pager #[phone] Date: 03/15/17 Author: Patrick Ruiz MD,MPH Consulting Attending: Mellisa Haji MD Reason for Consult: VA ECMO Consideration HPI: 61 year old male who presents this afternoon to [facility] in acute cardiogenic shock second maciej to STEMI / thrombosed L main coronary artery. He was transferred from [place]. His symptoms started this morning around 3am and was seen in [place], [place]. He was diagnosed w ith an anterior STEMI and transferred to the assistant laboratory director in [place], [place]. He was found to h ave [...] pressors (epinephrine and dopamine). On arrival to [facility], he was in profound cardiogenic shock and hypoxic. His MAP was in the 40s. He was tach ycardic into the 150s. IABP was increased to 1:2. Past Medical History: Past Medical History: Diagnosis Date Cardiogenic shock ([facility]) 03/15/2017 Coronary artery disease 03/15/2017 Hypercholesterolemia Hypertension [...] from cardiogenic shock. Patrick Ruiz MD, MPH oracle erp developer Trauma, Critical Care & Acute Care Surgery Counts Include [facility] At [facility] onies, Patrick Sexton MD,MPH - 03/15/2017 1:48 PM PDT . . Extracorporeal Life Support Service Initiation Note Pager #[phone] Date of service: 03/15/2017 Author: Patrick Ruiz Md,Mph ECMO Type: Veno-Arterial (CPT 80361 or 71848) Oxygenation index FiO2: 100 MAP: 22 Diagnosis:Cardiogenic [...] old male who presents this afternoon to [facility] in acute cardiogenic shock secondary [...] | + +--------+ + + + | FY-FH-MZJ-HB,POC RT | Routin | 03/19/2017 | ST [...] | + +--------+ + + + | SC ECMO REV | Routin | 03/19/2017 | [...] +---+--------+ + +--------+ + + + | ZQ-HR-IPI-HB,POC RT | Routin | 03/19/2017 | ST [...] | + +--------+ + + + | JQ-RE-ORL-HB,POC RT | Routin | 03/19/2017 | ST elevation | Results for this | | | e | 10:06 AM | myocardial | procedure are in the | | | | PDT | infarction involving | results section. | | | | | left main coronary | | | | | | artery (HCC) | | + +--------+ + + + | DK-SL-GYH-HB,POC RT | Routin | 03/19/2017 | ST [...] | + +--------+ + + + | VZ-DN-NNB-HB,POC RT | Routin | 03/17/2017 | ST [...] | + +--------+ + + + | QY-MN-EFW-HB,POC RT | Routin | 03/16/2017 | ST [...] | + +--------+ + + + | AE-CL-KTP-HB,POC RT | Routin | 03/16/2017 | ST [...] | + +--------+ + + + | DB-OE-NVP-HB,POC RT | Routin | 03/15/2017 | ST [...] | + +--------+ + + + | BS-XB-WOZ-HB,POC RT | Routin | 03/15/2017 | ST [...] | + +--------+ + + + | ZD-XM-COR-HB,POC RT | Routin | 03/15/2017 | ST [...] Height: 175 cm Weight: 89 kgBSA: 2.05 [id number] PHYSICIAN:Katarina Ngo, | | .FELLOW:Gerson Mejias M.D. .INDICATION AND [...] right coronary angiography.COMPLICATIONS:None.TECHNIQUE:Right femoral artery | | 6-Icelandic 10 cm [place] sheath, 6-Icelandic XB 3.5 guide catheter, 5-Icelandic JR4 | | catheter.DESCRIPTION OF PROCEDURE:Informed consent [...] modified Seldinger technique and a | | 5-Icelandic micropuncture system, a 6-Icelandic 10 cm [place] sheath was placed in the right | | femoral artery. A 6-Icelandic XB 3.5 guide catheter was inserted into the ascending aorta | | over a guidewire. The guidewire was removed. The catheter was aspirated and flushed. | | The left coronary system was selectively engaged and imaged in multiple projections. A | | 5-Icelandic Kymberly right 4 catheter was advanced to [...] DOSE AREA | | PRODUCT: 3749 cGy [id number]:Aortic pressure 87/15, mean aortic pressure 63, heart [...] the | | generation of this report.MANDI Ibarra/GLENNA: 03/30/2017 04:50:01DT: | | 03/30/2017 08:34:34Job #: [id number] | |extending from it into the LAD. [...] |YDT/MODL | | | | | | /[id number] | + + CAPILLARY BLOOD GLUCOSE (NO [...] + + + | [facility] | [address] | [place] [employer], [place] | | | JULIANN SILVA OF ALEXIS | [address] | [address] | | | TESTS | | | [...] [facility] | [address] | [place] [address] | | | SERVICES, CORE | PARK [...] [facility] | [address] | [place] [address] | | | SERVICES, CORE | PARK [...] [facility] | [address] | [place] [address] | | | SERVICES, CORE | PARK [...] | | | LABORATORY | | | JAPANESE | | | SERVICES, | | | [...] | + + + + + | [facility] | [address] | [place] [address] | | | SERVICES, CORE | TABITHA [...] | + + + + + | [facility] | [address] | [place] [address] | | | SERVICES, CORE | PARK [...] [facility] | [address] | [place] [address] | | | ИРИНА ANTOINE | TABITHA [...] + + + | [facility] | [address] | [place], [place] | | | RICARDO POINT OF CARE | [address] | [address] | | | TESTS | | | [...] [facility] | [address] | [place] [employer], [place] | | | RICARDO POINT OF CARE | [address] | [address] | | | TESTS | | | [...] [facility] | [address] | [place], [place] | | | RICARDO POINT OF CARE | [address] | [address] | | | TESTS | | | [...] | + + + + + | [facility] | [address] [facility] | [place] [address] | | | SERVICES, CORE | PARK [...] | | | LABORATORY | | | JAPANESE | | | SERVICES, | | | [...] [facility] | [address] | [place] [address] | | | SERVICES, CORE | TABITHA [...] (H) | 0.90 - 1.20 INR | [facility] | | | | | | LABORATORY [...] | + + + + + | [facility] | [address] | [place] [address] | | | ARASH, ИРИНА | [address] | | | + + + + + MAGNESIUM, PLASMA (04/01/2017 3:43 AM PDT) + +-------+ + + + | Component | Value | Ref Range | Performed | Pathologist | | | | | At | Signature | + +-------+ + + + | MAGNESIUM,P | 2.2 | 1.8 - 2.5 mg/dL | N[facility]Y | | | FEI | | | [...] | + + + + + | [facility] | [address] | [place] [address] | | | SERVICES, CORE | PARK [...] (H) | 70 - 99 mg/dL | [facility] - | | | GLUCOSE, [...] [facility] | [address] | [place] [employer], [place] | | | JULIANN SILVA OF CARE | [address] | [address] | | | TESTS | | | [...] [facility] | [address] | [place], [place] | | | JULIANN SILVA OF CARE | [facility] | [address] | | | TESTS | | | [...] (H) | 70 - 99 mg/dL | [facility] - | | | GLUCOSE, [...] [facility] | [address] | [place], [place] | | | JULIANN SILVA OF CARE | [address] | [address] | | | TESTS | | | [...] [facility] | [address] | [place] [employer], [place] | | | GURINDER SILVA | [facility] | [address] | | | TESTS | | | [...] [facility] | [address] | [place] [address] | | | ИРИНА ANTOINE | TABITHA [...] | | | LABORATORY | | | JAPANESE | | | SERVICES, | | | [...] | + + + + + | [facility] | [address] | [place] [address] | | | SERVICES, CORE | PARK [...] | + + + + + | [facility] | [address] | [place] [address] | | | SERVICES, CORE | [address] | | | + + + + + MAGNESIUM, PLASMA (03/31/2017 3:45 AM PDT) + +-------+ + + + | Component | Value | Ref Range | Performed | Pathologist | | | | | At | Signature | + +-------+ + + + | MAGNESIUM,P | 2.4 | 1.8 - 2.5 mg/dL | N[facility]ENDY | | | DENISEMA | | | [...] | + + + + + | [facility] | [address] | [place] [address] | | | ARASH, CORE | PARK [...] [facility] | [address] | [place] [address] | | | SERVICES, CORE | TABITHA [...] | [facility] | [address] | [place], [place] | | | RICARDO POINT OF CARE | [address] | [address] | | | TESTS | | | [...] | | | LABORATORY | | | JAPANESE | | | SERVICES, | | | [...] | + + + + + | [facility] | [address] | [place] [address] | | | ИРИНА ANTOINE | TABITHA [...] DEPT OF | [address] | [place] [employer], [place] | | | CARDIOLOGY | [address] | [address] | | + + + + + [...] + + + + + | [facility] | [address] | [place], [place] | | | RICARDO POINT OF CARE | [address] | [address] | | | TESTS | | | [...] | | | LABORATORY | | | JAPANESE | | | SERVICES, | | | [...] | [facility] | [address] [facility] | [place] [address] | | | SERVICES, CORE | PARK [...] | 0.95 (H) | <0.80 ng/mL | [facility] | | | | | | LABORATORY [...] + | [facility] | [address] | [place] [address] | | | SERVICES, CORE | TABITHA [...] rmed At | + +------ + | Counts Include [address] [facility] At [facility] | [facility] | | [facility] Adult Echocardiography | CARDI OLOGY | | Laboratory [address] [place] [address], | | | [place] [address] Pt Name: | | | RON MCKEON Study Date/Time 03/30/2017 / 10:44:00 | | | AMMRN: [id number] Most recent | | | prior: 03/19/17cc #: [id number] No. previous | | | echos: 3DOB: 1955 61 years Heart | | | Rate: 70 bpmHeight: 68.0 in | | | Blood Pressure: 100/55 mm/HgWeight: 197.0 | | | lb Gender: | | | MBSA: 2.03 m2 Order | | | ID: [id number] Sales Systems Engineer: Shahab Sutton | | | RDCSSonographer 2: Karly Gayle Referring Provider: Ariana | | | [facility] Location: 11KModalities Performed: 2D, Color flow, | [...] Tn, | | | patient's significant recent VT, we activated the assistant laboratory director. Patient | | | history has been [...] Report electronically signed by: | | | [id number] Jordon Neville MD (03/30/2017, 2:04:56 PM) Final | | | | | |Wall Scoring: | | | | | | | | |Report electronically signed by: [id number] Jordon Neville MD (03/30/2017, 2:04:56 PM) | | | | | | | | | | | | Final | | + +------ + + + | Procedure Note | + + | Interface, Cardiology Results - 03/30/2017 2:04 PM [facility] [place] | | [facility] [address] [place] [address] | | [place], [place] [address] Pt Name: RON Chaudhary | | MIKE Study Date/Time 03/30/2017 / 10:44:00 AMMRN: [id number] Most | | recent prior: 03/19/17 #: [id number] No. previous echos: 3DOB: | | 1955 61 years Heart Rate: 70 bpmHeight: 68.0 in Blood | | Pressure: 100/55 mm/HgWeight: 197.0 lb Gender: MBSA: | | 2.03 m2 Order ID: [id number] Sales Systems Engineer: Shahab Sutton | | RDCSSonographer 2: Karly Major Provider: Ariana Sharpe Location: | | 11KModalities Performed: 2D, Color [...] elevated Tn, | | patient's significant recent VT, we activated the assistant laboratory director. Patient history has been | | obtained [...] Scoring: Report | | electronically signed by: [id number] Jordon Neville MD (03/30/2017, 2:04:56 PM) Final [...] | | | |Report electronically signed by: [id number] Jordon Neville MD (03/30/2017, 2:04:56 PM) | | | | | | | | Final | + + + + + + + | Performing | Address | City/State/Zipcode | Phone Number | | Organization | | | | + + + + + | [facility] OF | [address] [facility] | [place], [place] | | | CARDIOLOGY | [address] | [address] | | + + + + + [...] [facility] | [address] | [place], [place] | | | RICARDO POINT OF CARE | [address] | [address] | | | TESTS | | | | + + + + + TROPONIN I, PLASMA (03/30/2017 5:35 AM PDT) + + + + + + | Component | Value | Ref Range | Performed | Pathologist | | | | | At | Signature | + + + + + + | TROPONIN I | 1.30 (H) | <0.80 ng/mL | [facility] | | | | | [...] | + + + + + | [facility] | [address] [facility] | [place] [address] | | | SERVICES, CORE | TABITHA [...] | | | CCL | | | NINOSKAQUAM | | | INTRAPROC | | | [...] MARIA | [address] | [place], [place] | | | JULIANN SILVA OF [place] | [address] | [address] | | | TESTS | | | [...] ECG | Electronically signed | | [facility] | | | IMPRESSION | by: JANN [...] [facility] | [address] [facility] | [place], [place] | | | CARDIOLOGY | [address] | [address] | | + + + + + [...] | | | LABORATORY | | | JAPANESE | | | SERVICES, | | | [...] [facility] | [address] | [place] [address] | | | SERVICES, CORE | PARK [...] [facility] | [address] | [place] [address] | | | SERVICES, CORE | TABITHA [...] | 1.08 (H) | <0.80 ng/mL | EULOGIO | | | | | [...] | + + + + + | [facility] | [address] | [place] [address] | | | SERVICES, CORE | [address] | | | + + + + + 12 LEAD ECG (03/30/2017 2:47 AM PDT) + + + + + + | Component | Value | Ref Range | Performed | Pathologist | | | | | At | Signature | + + + + + + | VENTRICULAR | 93 | bpm | [facility] | | | RATE | | [...] DEPT OF | [address] | [place], [place] | | | CARDIOLOGY | [address] | [address] | | + + + + + [...] DEPT OF | [address] | [place], [place] | | | CARDIOLOGY | [address] | [address] | | + + + + + [...] | + + + + + | [facility] | [address] | [place] [address] | | | SERVICES, CORE | PARK [...] | + + + + + | [facility] | [address] [facility] | [place] [address] | | | SERVICES, CORE | TABITHA [...] | + + + + + | [facility] | [address] | [place] [address] | | | ARASH, ИРИНА | PARK [...] [facility] | [address] | [place] [address] | | | SERVICES, CORE | PARK [...] MARIA | [address] | [place], [place] | | | JULIANN SILVA OF [facility] | [address] | [address] | | | TESTS | | | [...] | + + + + + | [facility] | [address] | [place] [address] | | | SERVICES, CORE | TABITHA [...] MIKET OF | [address] | [place] [employer], [place] | | | CARDIOLOGY | [address] | [address] | | + + + + + [...] - MARQU[facility] | [address] | [place] | | | RICARDO POINT OF CARE | [address] | [address] | | | TESTS | | | [...] RODGERS | [address] | [place] [employer] | | | RICARDO POINT OF [facility] | [address] | [address] | | | TESTS | | | [...] | + + + + + | [facility] | [address] | [place] [address] | | | SERVICES, CORE | TABITHA [...] MARQUAM | [address] | [place] [employer], [place] | | | RICARDO POINT OF CARE | [address] | [address] | | | TESTS | | | [...] [facility] | [address] | [place] [address] | | | SERVICES, CORE | PARK [...] | | | LABORATORY | | | JAPANESE | | | SERVICES, | | | [...] | + + + + + | [facility] | [address] | [place] [address] | | | SERVICES, CORE | TABITHA [...] ranges for full anticoagulation: INR for | [facility] | | Venous Thromboembolism (2.0 - 3.0) INR INR | LABORATORY | | for most patients with mech. valves (2.5 - 3.5) INR | ARASH, CORE | + + + + + + + + | Performing | Address | City/State/Zipcode | Phone Number | | Organization | | | | + + + + + | [facility] | [address] [facility] | [place] [address] | | | ARASH, ИРИНА | TABITHA [...] | + + + + + | [facility] | [address] | [place] [address] | | | SERVICES, CORE | TABITHA [...] | + + + + + | [facility] | [address] | [place] [address] | | | ARASH, ИРИНА | TABITHA [...] | + + + + + | [facility] | [address] | [place] [address] | | | SERVICES, CORE | TABITHA [...] RODGERS | [address] | [place], [place] | | | JULIANN SILVA OF [place] | [address] | [address] | | | TESTS | | | [...] ANA MARIA | [address] | [place] [employer] | | | JULIANN SILVA OF [facility] | [facility] | [address] | | | TESTS | | | [...] | | | LABORATORY | | | JAPANESE | | | SERVICES, | | | [...] | + + + + + | [facility] | [address] | [place] [address] | | | ARASH, ИРИНА | PARK [...] [facility] | [address] | [place] [address] | | | SERVICES, CORE | PARK [...] | | | LABORATORY | | | JAPANESE | | | SERVICES, | | | [...] | + + + + + | [facility] | [address] [facility] | [place] [address] | | | SERVICES, CORE | TABITHA [...] MARQUAM | [address] | [place], [place] | | | JULIANN SILVA OF CARE | [address] | [address] | | | TESTS | | | [...] RODGERS | [address] | [place] [employer], [place] | | | JULIANN SILVA OF CARE | [address] | [address] | | | TESTS | | | [...] | [facility] | [address] [facility] | [place] [address] | | | SERVICES, ИРИНА | TABITHA [...] | | | LABORATORY | | | JAPANESE | | | SERVICES, | | | [...] | [facility] | [address] [facility] | [place] [address] | | | SERVICES, CORE | PARK [...] | + + + + + | [facility] | [address] | [place] [address] | | | SERVICES, CORE | PARK [...] | + + + + + | [facility] | [address] | [place] [address] | | | SERVICES, CORE | [address] | | | + + + + + MAGNESIUM, PLASMA (03/28/2017 4:13 AM PDT) + +---------+ + + + | Component | Value | Ref Range | Performed | Pathologist | | | | | At | Signature | + +---------+ + + + | MAGNESIUM,P | 2.7 (H) | 1.8 - 2.5 mg/dL | [facility] | | | DENISEMA | | | [...] | + + + + + | [facility] | [address] | [place] [address] | | | SERVICES, CORE | PARK [...] RODGERS | [address] | [place] | | | JULIANN SILVA OF [facility] | [address] | [address] | | | TESTS | | | [...] RODGERS | [address] | [place] | | | RICARDO POINT OF CARE | [address] | [address] | | | TESTS | | | [...] MARIA | [address] | [place], [place] | | | JULIANN SILVA OF [place] | [address] | [address] | | | TESTS | | | [...] ANA MARIA | [address] | [place] | | | JULIANN SILVA OF [facility] | [address] | [address] | | | TESTS | | | [...] [facility] | [address] | [place] [address] | | | SERVICES, CORE | PARK [...] | + + + + + | [facility] | [address] | [place] [address] | | | SERVICES, CORE | TABITHA [...] | | | LABORATORY | | | JAPANESE | | | SERVICES, | | | [...] [facility] | [address] | [place] [address] | | | SERVICES, CORE | PARK [...] | + + + + + | [facility] | [address] | [place] [address] | | | SERVICES, CORE | PARK [...] | + + + + + | [facility] | [address] | [place] [address] | | | SERVICES, CORE | TABITHA [...] - MARQU[facility] | [address] | [place] | | | RICARDO POINT OF CARE | [address] | [address] | | | TESTS | | | [...] + + + | [facility] | [address] | [place] | | | RICARDO POINT OF CARE | [address] | [address] | | | TESTS | | | [...] | | | LABORATORY | | | JAPANESE | | | SERVICES, | | | [...] | + + + + + | [facility] | [address] | [place] [address] | | | SERVICES, CORE | TABITHA [...] MARRANDIAM | [address] | [place] | | | JULIANN SLIVA OF [place] | [address] | [address] | | | TESTS | | | | + + + + + RAINBOW HOLD TUBE - GREEN TOP (03/26/2017 3:50 AM PDT) + + | Specimen | + + | Blood | + + + + + + + | Performing | Address | City/State/Zipcode | Phone Number | | Organization | | | | + + + + + | [facility] | [address] | [place] [address] | | | SERVICES, CORE | TABITHA [...] | + + + + + | [facility] | [address] [facility] | [place] [address] | | | SERVICES, CORE | PARK [...] | + + + + + | [facility] | [address] | [place] [address] | | | ИРИНА ANTOINE | TABITHA [...] | | | LABORATORY | | | JAPANESE | | | SERVICES, | | | [...] EULOGIO CALABRESE | [address] | [place] [address] | | | SERVICES, CORE | TABITHA [...] | + + + + + | [facility] | [address] | [place] [address] | | | SERVICES, CORE | TABITHA [...] [facility] | [address] | [place] [address] | | | SERVICES, CORE | PARK [...] | [facility] | | considered for monitoring director adult glycemic control in patients with: | LABORATORY [...] [facility] | [address] | [place] [address] | | | SERVICES, SPECIAL | PARK [...] + + + + + | [facility] | [address] | [place] [address] | | | SERVICES, CORE | TABITHA [...] MARQU[facility] | [address] | [place] | | | RICARDO POINT OF CARE | [address] | [address] | | | TESTS | | | [...] EULOGIO [facility] | [address] | [place], [place] | | | RICARDO POINT OF CARE | [address] | [address] | | | TESTS | | | [...] | + + + + + | [facility] | [address] | [place] [address] | | | SERVICES, CORE | TABITHA [...] | [facility] | | | GRAVITY | [place] performed by | | LABORATORY | | [...] | + + + + + | [facility] | [address] | [place] [address] | | | SERVICES, CORE | TABITHA [...] + | [facility] | [address] | [place] [address] | | | [place] | | | [...] MARQUAM | [address] | [place] | | | RICARDO POINT OF CARE | [address] | [address] | | | TESTS | | | [...] RODGERS | [address] | [place] [employer] | | | RICARDO POINT OF CARE | [address] | [address] | | | TESTS | | | [...] | + + + + + | [facility] | [address] | [place] [address] | | | ИРИНА ANTOINE | TABITHA [...] | + + + + + | [facility] | [address] | [place] [address] | | | ИРИНА ANTOINE | TABITHA [...] ranges for full anticoagulation: INR for | [facility] | | Venous Thromboembolism (2.0 - 3.0) INR INR | LABORATORY | | for most patients with mech. valves (2.5 - 3.5) INR | ИРИНА ANTOINE | + + + + + + + + | Performing | Address | City/State/Zipcode | Phone Number | | Organization | | | | + + + + + | [facility] | [address] [facility] | [place] [address] | | | ИРИНА ANTOINE | TABITHA [...] [facility] | [address] | [place] [address] | | | SERVICES, CORE | PARK [...] | | | LABORATORY | | | JAPANESE | | | SERVICES, | | | [...] | + + + + + | [facility] | [address] [facility] | [place] [address] | | | SERVICES, CORE | PARK [...] | + + + + + | [facility] | [address] [facility] | [place] [address] | | | SERVICES, CORE | PARK [...] MARQU[facility] | [address] | [place] | | | JULIANN SILVA OF CARE | [address] | [address] | | | TESTS | | | [...] - MARQU[facility] | [address] | [place], [place] | | | JULIANN SILVA OF CARE | [address] | [address] | | | TESTS | | | [...] RODGERS | [address] | [place] [employer] | | | RICARDO POINT OF CARE | [address] | [address] | | | TESTS | | | [...] MARQUAM | [address] | [place] [employer] | | | JULIANN SILVA OF CARE | [address] | [address] | | | TESTS | | | [...] [facility] | [address] | [place] [address] | | | SERVICES, CORE | PARK [...] | + + + + + | [facility] | [address] | [place] [address] | | | SERVICES, CORE | TABITHA [...] BLUAM | [address] | [place] [employer] | | | JULIANN SILVA OF CARE | [address] | [address] | | | TESTS | | | [...] | | | attempt. Midline lot number [id number]; there was + blood | | | [...] RODGERS | [address] | [place] [employer], [place] | | | JULIANN SILVA OF [place] | [address] | [address] | | | TESTS | | | [...] MARQUAM | [address] | [place] [employer] | | | RICARDO POINT OF CARE | [address] | [address] | | | TESTS | | | [...] | + + + + + | [facility] | [address] | [place] [address] | | | SERVICES, CORE | TABITHA [...] (H) | 70 - 99 mg/dL | [facility] - | | | GLUCOSE, [...] RODGERS | [address] | [place] | | | JULIANN SILVA OF [facility] | [facility] | [address] | | | TESTS | | | [...] MARIA | [address] | [place] | | | JULIANN SILVA OF [place] | [address] | [address] | | | TESTS | | | [...] MARIA | [address] | [place] | | | RICARDO POINT OF CARE | [facility] | [address] | | | TESTS | | | [...] (H) | 70 - 99 mg/dL | [facility] - | | | GLUCOSE, [...] RODGERS | [address] | [place] | | | JULIANN SILVA OF [place] | [facility] | [address] | | | TESTS | | | [...] | + + + + + | [facility] | [address] | [place] [address] | | | SERVICES, CORE | TABITHA [...] | + + + + + | [facility] | [address] | [place] [address] | | | SERVICES, CORE | TABITHA [...] [facility] | [address] | [place] [address] | | | SERVICES, CORE | TABITHA [...] | | | LABORATORY | | | JAPANESE | | | SERVICES, | | | [...] | + + + + + | [facility] | [address] | [place] [address] | | | SERVICES, CORE | TABITHA [...] | + + + + + | [facility] | [address] | [place] [address] | | | ИРИНА ANTOINE | TABITHA [...] ANA MARIA | [address] | [place] | | | JULIANN SILVA OF CARE | [address] | [address] | | | TESTS | | | [...] (H) | 70 - 99 mg/dL | [facility] - | | | GLUCOSE, [...] RODGERS | [address] | [place] | | | JULIANN SILVA OF CARE | [address] | [address] | | | TESTS | | | [...] MARQUAM | [address] | [place] | | | JULIANN SILVA OF CARE | [address] | [address] | | | TESTS | | | [...] ANA MARIA | [address] | [place] | | | RICARDO [place] OF [facility] | [address] | [address] | | | TESTS | | | [...] | + + + + + | [facility] | [address] | [place] [address] | | | SERVICES, CORE | TABITHA [...] MARQU[facility] | [address] | [place] | | | RICARDO POINT OF CARE | [address] | [address] | | | TESTS | | | [...] ANA MARIA | [address] | [place] | | | RICARDO POINT OF CARE | [address] | [address] | | | TESTS | | | [...] | + + + + + | [facility] | [address] [facility] | [place] [address] | | | SERVICES, CORE | TABITHA [...] RODGERS | [address] | [place] | | | JULIANN SILVA OF ALEX[place] | [facility] | [address] | | | TESTS | | | | + + + + + CAPILLARY BLOOD GLUCOSE (NO CHG) POC (03/23/2017 9:18 AM PDT) + +---------+ [...] MARQU[facility] | [address] | [place] | | | JULIANN SILVA OF CARE | [address] | [address] | | | TESTS | | | [...] (H) | 70 - 99 mg/dL | [facility] - | | | GLUCOSE, [...] MARQUAM | [address] | [place] | | | RICARDO POINT OF [facility] | [address] | [address] | | | TESTS | | | [...] RODGERS | [address] | [place] | | | JULIANN SILVA OF [place]LEX[place] | [facility] | [address] | | | TESTS | | | [...] MARIA | [address] | [place] | | | RICARDO POINT OF [facility] | [address] | [address] | | | TESTS | | | [...] [facility] | [address] | [place] [address] | | | SERVICES, CORE | PARK [...] | + + + + + | [facility] | [address] | [place] [address] | | | SERVICES, CORE | PARK [...] | + + + + + | [facility] | [address] | [place] [address] | | | SERVICES, CORE | TABITHA [...] | | | LABORATORY | | | JAPANESE | | | SERVICES, | | | [...] [facility] | [address] | [place] [address] | | | SERVICES, CORE | PARK [...] | + + + + + | [facility] | [address] | [place] [address] | | | SERVICES, CORE | TABITHA [...] (H) | 70 - 99 mg/dL | [facility] - | | | GLUCOSE, | | [...] MARIA | [address] | [place], [place] | | | JULIANN SILVA OF [place] | [facility] | [address] | | | TESTS | | | [...] MARIA | [address] | [place] | | | JULIANN SILVA OF [place] | [facility] | [address] | | | TESTS | | | [...] (H) | 70 - 99 mg/dL | [facility] - | | | GLUCOSE, [...] MARIA | [address] | [place] | | | RICARDO POINT OF CARE | [address] | [address] | | | TESTS | | | [...] | | | GLUCOSE, | | | BLU[facility] | | | POC | | | JULIANN SILVA | | | | | | OF CARE | | | | | | TESTS | | + +---------+ + + + + + | Specimen | + + | | + + + + + + + | Performing | Address | City/State/[facility] | Phone Number | | Organization | | | | + + + + + | [facility] ANA MAR[facility] | [address] | [place], [place] | | | JULIANN SILVA OF [place] | [facility] | [address] | | | TESTS | | | [...] BLUAM | [address] | [place] | | | JULIANN SILVA OF [place] | [facility] | [address] | | | TESTS | | | [...] (H) | 70 - 99 mg/dL | [facility] - | | | GLUCOSE, [...] MARIA | [address] | [place] | | | RICARDO POINT OF CARE | [address] | [address] | | | TESTS | | | [...] [facility] | [address] | [place] [address] | | | SERVICES, CORE | PARK [...] - MARQU[facility] | [address] | [place] | | | JULIANN SILVA OF CARE | [facility] | [address] | | | TESTS | | | [...] RODGERS | [address] | [place] | | | RICARDO POINT OF CARE | [address] | [address] | | | TESTS | | | [...] MARQUAM | [address] | [place] | | | JULIANN SILVA OF CARE | [address] | [address] | | | TESTS | | | [...] - MARQU[facility] | [address] | [place] | | | JULIANN SILVA OF CARE | [address] | [address] | | | TESTS | | | [...] + + + | [facility] | [address] | [place], [place] | | | RICARDO POINT OF CARE | [address] | [address] | | | TESTS | | | [...] [facility] | [address] | [place] [address] | | | ARASH, ИРИНА | TABITHA [...] MARQUAM | [address] | [place] | | | JULIANN SILVA OF [place] | [address] | [address] | | | TESTS | | | [...] RODGERS | [address] | [place] | | | RICARDO POINT OF CARE | [address] | [address] | | | TESTS | | | [...] MARQUAM | [address] | [place] | | | JULIANN SILVA OF CARE | [address] | [address] | | | TESTS | | | [...] MARQUAM | [address] | [place] | | | JULIANN SILVA OF [place] | [address] | [address] | | | TESTS | | | [...] RODGERS | [address] | [place] | | | RICARDO POINT OF CARE | [address] | [address] | | | TESTS | | | [...] MARQUAM | [address] | [place] | | | [place], POINT OF CARE | [address] | [address] | | | TESTS | | | [...] [facility] | [address] | [place] [address] | | | SERVICES, | [address] [...] | + + + + + | [facility] | [address] | [place] [address] | | | SERVICES, | [address] [...] + + + + | PRODUCT | [id number] | | [facility] | | | UNIT [...] + + + + | EXPIRATION | [id number] | | [facility] | | | DATE [...] + + + + | BLOOD | [id number] | | [facility] | | | PRODUCT [...] [facility] | [address] | [place] [address] | | | SERVICES, | [address] [...] + + + | [facility] | [address] | [place] [address] | | | SERVICESИРИНА | [address] [...] | + + + + + | [facility] | [address] [facility] | [place] [address] | | | SERVICES, CORE | PARK [...] | + + + + + | [facility] | [address] | [place] [address] | | | ИРИНА ANTOINE | TABITHA [...] | + + + + + | [facility] | [address] [facility] | [place] [address] | | | SERVICES, CORE | TABITHA [...] [facility] | [address] | [place] [address] | | | SERVICES, CORE | PARK [...] | | | LABORATORY | | | JAPANESE | | | SERVICES, | | | [...] | + + + + + | [facility] | [address] | [place] [address] | | | SERVICES, CORE | PARK [...] MARIA | [address] | [place], [place] | | | JULIANN SILVA OF CARE | [facility] | [address] | | | TESTS | | | [...] (H) | 70 - 99 mg/dL | [facility] - | | | GLUCOSE, [...] R[facility] | [address] | [place] [employer], [place] | | | JULIANN SILVA OF CARE | [facility] | [address] | | | TESTS | | | [...] MARIA | [address] | [place], [place] | | | JULIANN SILVA OF [place]LEX[place] | [address] | [address] | | | TESTS | | | [...] ANA MARIA | [address] | [place], [place] | | | JULIANN SILVA OF CARE | [facility] | [address] | | | TESTS | | | [...] (H) | 70 - 99 mg/dL | [facility] - | | | GLUCOSE, [...] RODGERS | [address] | [place] [employer], [place] | | | JULIANN SILVA OF CARE | [facility] | [address] | | | TESTS | | | [...] MARIA | [address] | [place], [place] | | | JULIANN SILVA OF [place] | [address] | [address] | | | TESTS | | | [...] MARIA | [address] | [place], [place] | | | JULIANN SILVA OF CARE | [facility] | [address] | | | TESTS | | | [...] (H) | 70 - 99 mg/dL | [facility] - | | | GLUCOSE, [...] RODGERS | [address] | [place] [employer], [place] | | | JULIANN SILVA OF CARE | [address] | [address] | | | TESTS | | | [...] MARIA | [address] | [place], [place] | | | JULIANN SILVA OF [place] | [address] | [address] | | | TESTS | | | [...] | | | LABORATORY | | | JAPANESE | | | SERVICES, | | | [...] | + + + + + | [facility] | [address] | [place] [address] | | | SERVICES, CORE | PARK [...] MARQUAM | [address] | [place] [employer] | | | JULIANN SILVA OF CARE | [address] | [address] | | | TESTS | | | [...] MARQUAM | [address] | [place], [place] | | | JULIANN SILVA OF [place] | [address] | [address] | | | TESTS | | | [...] (H) | 70 - 99 mg/dL | [facility] - | | | GLUCOSE, [...] RODGERS | [address] | [place] [employer], [place] | | | JULIANN SILVA OF [place] | [address] | [address] | | | TESTS | | | [...] on the 1 attempt. Midline lot number [id number]; there was + | | | blood [...] MARQUAM | [address] | [place], [place] | | | JULIANN SILVA OF CARE | [facility] | [address] | | | TESTS | | | [...] RODGERS | [address] | [place] [employer], [place] | | | JULIANN SILVA OF CARE | [address] | [address] | | | TESTS | | | [...] | + + + + + | [facility] | [address] | [place] [address] | | | SERVICES, CORE | PARK [...] + + + | [facility] | [address] | [place], [place] | | | RICARDO POINT OF CARE | [address] | [address] | | | TESTS | | | [...] | + + + + + | [facility] | [address] | [place] [address] | | | SERVICES, CORE | PARK [...] MARIA | [address] | [place], [place] | | | JULIANN SILVA OF CARE | [address] | [address] | | | TESTS | | | [...] MARIA | [address] | [place], [place] | | | JULIANN SILVA OF [place]LEX[place] | [facility] | [address] | | | TESTS | | | [...] (H) | 70 - 99 mg/dL | [facility] - | | | GLUCOSE, [...] RODGERS | [address] | [place] [employer], [place] | | | RICARDO POINT OF CARE | [address] | [address] | | | TESTS | | | [...] MARIA | [address] | [place], [place] | | | JULIANN SILVA OF [place] | [address] | [address] | | | TESTS | | | [...] [facility] | [address] | [place] [address] | | | ИРИНА ANTOINE | TABITHA [...] | + + + + + | [facility] | [address] | [place] [address] | | | SERVICES, CORE | [address] | | | + + + + + MAGNESIUM, PLASMA (03/21/2017 5:34 AM PDT) + +---------+ + + + | Component | Value | Ref Range | Performed | Pathologist | | | | | At | Signature | + +---------+ + + + | MAGNESIUM,P | 2.6 (H) | 1.8 - 2.5 mg/dL | [facility] | | | LASMA | | | [...] | + + + + + | [facility] | [address] [facility] [facility] | [place] [address] | | | SERVICES, CORE | TABITHA [...] | | | LABORATORY | | | JAPANESE | | | SERVICES, | | | [...] | + + + + + | [facility] | [address] | [place] [address] | | | ИРИНА ANTOINE | TABITHA [...] (H) | 70 - 99 mg/dL | [facility] - | | | GLUCOSE, [...] + + + + + | EULOGIO RODEGRS | [address] | [place] [employer], [place] | | | RICARDO POINT OF CARE | [address] | [address] | | | TESTS | | | [...] MARIA | [address] | [place], [place] | | | JULIANN SILVA OF [place]LEX[place] | [address] | [address] | | | TESTS | | | [...] [facility] | [address] | [place] [employer], [place] | | | JULIANN SILVA OF CARE | [address] | [address] | | | TESTS | | | [...] RODGERS | [address] | [place] [employer], [place] | | | JULIANN SILVA OF CARE | [address] | [address] | | | TESTS | | | [...] BLUAM | [address] | [place] [employer], [place] | | | JULIANN SILVA OF CARE | [address] | [address] | | | TESTS | | | [...] | + + + + + | [facility] | [address] | [place] [address] | | | SERVICES, CORE | TABITHA [...] (H) | 70 - 99 mg/dL | [facility] - | | | GLUCOSE, [...] RODGERS | [address] | [place] [employer], [place] | | | RICARDO POINT OF CARE | [address] | [address] | | | TESTS | | | [...] MARQUAM | [address] | [place] [employer], [place] | | | RICARDO POINT OF CARE | [address] | [address] | | | TESTS | | | [...] MARQU[facility] | [address] | [place] [employer], [place] | | | JULIANN SILVA OF [place] | [facility] | [address] | | | TESTS | | | [...] RODGERS | [address] | [place] [employer], [place] | | | JULIANN SILVA OF CARE | [address] | [address] | | | TESTS | | | [...] MARQUAM | [address] | [place] [employer], [place] | | | HILL, POINT OF CARE | [address] | [address] | | | TESTS | | | [...] MARQUAM | [address] | [place] [employer], [place] | | | JULIANN SILVA OF [place] | [facility] | [address] | | | TESTS | | | [...] RODGERS | [address] | [place] [employer], [place] | | | JULIANN SILVA OF CARE | [address] | [address] | | | TESTS | | | [...] | + + + + + | [facility] | [address] | [place] [address] | | | SERVICES, CORE | TABITHA [...] (H) | 70 - 99 mg/dL | [facility] - | | | GLUCOSE, [...] RODGERS | [address] | [place] [employer], [place] | | | JULIANN SILVA OF [place] | [facility] | [address] | | | TESTS | | | [...] MARIA | [address] | [place], [place] | | | JULIANN SILVA OF CARE | [address] | [address] | | | TESTS | | | [...] | + + + + + | [facility] | [address] | [place] [address] | | | ИРИНА ANTOINE | TABITHA [...] RODGERS | [address] | [place] [employer], [place] | | | JULIANN SILVA OF [facility] | [address] | [address] | | | TESTS | | | [...] the tip in the proximal gastric body. Hosston Олег | | | catheter in place. [...] Note | + + | Service Account, Via [employer] In Interface - 03/20/2017 2:38 PM PDT EXAM: Supine | | frontal view of the abdomen. HISTORY: Study to evaluate feeding tube | | positionCOMPARISON: Chest Xray dated 03/19/2017.FINDINGS AND IMPRESSION:Feeding tube is | | seen in the stomach with the tip in the proximal gastric body.[place] Олег catheter in | | place.Limited evaluation of the lungs as technique was tailored for feeding tube.I have | | personally reviewed the images and, if necessary, edited the report. I agree with the | | report as now presented. | | | |Feeding tube is seen in the stomach with the tip in the proximal gastric body. | |Hos[place] Олег catheter in place. | |Limited evaluation [...] | | + +---------+ + + | [facility] RADIOLOGY | | | | [...] MARQUAM | [address] | [place], [place] | | | JULIANN SILVA OF CARE | [address] | [address] | | | TESTS | | | [...] RODGERS | [address] | [place] [employer], [place] | | | JULIANN SILVA OF CARE | [address] | [address] | | | TESTS | | | [...] + + | [facility] | [address] | [place] [employer], [place] | | | JULIANN SILVA OF CARE | [address] | [address] | | | TESTS | | | [...] MARQUAM | [address] | [place], [place] | | | JULIANN SILVA OF [place] | [address] | [address] | | | TESTS | | | [...] RODGERS | [address] | [place] [employer], [place] | | | RICARDO POINT OF CARE | [address] | [address] | | | TESTS | | | [...] | + + + + + | [facility] | [address] [facility] | [place] [address] | | | ARASH, ИРИНА | TABITHA [...] | [facility] | [address] [facility] [facility] [facility] | [place] [address] | | | SERVICES, CORE | PARK [...] | + + + + + | [facility] | [address] | [place] [address] | | | SERVICES, CORE | TABITHA [...] | | | POC | | | JULAINN SILVA | | | | | | [...] MARQU[place] | [address] | [place] [employer], [place] | | | JULIANN SILVA OF CARE | [address] | [address] | | | TESTS | | | | + + + + + X-RAY PORTABLE CHEST 1 VIEW (03/20/2017 6:33 AM PDT) + + | Specimen | + + | | + + + + + | Narrative | Performed At | + + + | EXAM: SC CHEST 1 VIEW 03/20/17 04:29:28 HISTORY: ECMO [...] Note | + + | Service Account, [employer] In Interface - 03/20/2017 10:12 AM PDT EXAM: SC CHEST 1 | | VIEW 03/20/17 04:29:28 [...] MARQU[facility] | [address] | [place] [employer], [place] | | | CHRISTIE SILVA [facility] | [facility] | [address] | | | TESTS | | | [...] MARQUAM | [address] | [place], [place] | | | JULIANN SILVA OF [place] | [facility] | [address] | | | TESTS | | | [...] RODGERS | [address] | [place] [employer], [place] | | | RICARDO POINT OF CARE | [address] | [address] | | | TESTS | | | [...] MARQUAM | [address] | [place] [employer], [place] | | | JULIANN SILVA OF [facility] | [facility] | [address] | | | TESTS | | | [...] [facility] | [address] | [place] [address] | | | SERVICES, CORE | TABITHA [...] | + + + + + | [facility] | [address] | [place] [address] | | | SERVICES, CORE | [address] | | | + + + + + MAGNESIUM, PLASMA (03/20/2017 1:00 AM PDT) + +---------+ + + + | Component | Value | Ref Range | Performed | Pathologist | | | | | At | Signature | + +---------+ + + + | MAGNESIUM,P | 2.7 (H) | 1.8 - 2.5 mg/dL | [facility] | | | LASMA | | | [...] | + + + + + | [facility] | [address] | [place] [address] | | | SERVICES, CORE | PARK [...] | + + + + + | [facility] | [address] | [place] [address] | | | SERVICES, CORE | TABITHA [...] | | | LABORATORY | | | JAPANESE | | | SERVICES, | | | [...] | + + + + + | [facility] | [address] [facility] [facility] | [place] [address] | | | ARASH, ИРИНА | TABITHA [...] MARQU[facility] | [address] | [place] [employer] | | | HILL, POINT OF CARE | [address] | [address] | | | TESTS | | | [...] MAR[place] | [address] | [place] [employer], [place] | | | JULIANN SILVA OF [facility] | [address] | [address] | | | TESTS | | | [...] | + + + + + | [facility] | [address] | [place] [address] | | | SERVICES, CORE | TABITHA [...] MAR[place] | [address] | [place] [employer] | | | JULIANN SILVA OF CARE | [address] | [address] | | | TESTS | | | [...] EULOGIO RODGERS | [address] | [place] [employer] | | | RICARDO [place] OF [facility] | [address] | [address] | | | TESTS | | | [...] | + + + + + | [facility] | [address] | [place] [address] | | | SERVICES, CORE | TABITHA [...] (H) | 70 - 99 mg/dL | [facility] - | | | GLUCOSE, [...] RODGERS | [address] | [place] [employer], [place] | | | JULIANN SILVA OF [place] | [facility] | [address] | | | TESTS | | | [...] | + + + + + | [facility] | [address] | [place] [address] | | | SERVICES, CORE | TABITHA [...] (H) | 70 - 99 mg/dL | [facility] - | | | GLUCOSE, | | | [facility] | | | POC | | | JULIANN SILVA | | | | | | OF CARE | | | | | | TESTS | | + +---------+ + + + + + | Specimen | + + | | + + + + + + + | Performing | Address | City/State/[facility] | Phone Number | | Organization | | | | + + + + + | [facility] | [address] | [place] [employer], [place] | | | JULIANN SILVA OF [place] | [facility] | [address] | | | TESTS | | | [...] | + + + + + | [facility] | [address] | [place] [address] | | | SERVICES, CORE | PARK [...] | + + + + + | [facility] | [address] | [place] [address] | | | ИРИНА ANTOINE | TABITHA [...] (H) | 70 - 99 mg/dL | [facility] - | | | GLUCOSE, [...] MARIA | [address] | [place] [employer], [place] | | | RICARDO POINT OF CARE | [address] | [address] | | | TESTS | | | [...] | 118 (L) | >300 mmHg | [facility] | | | RATIO | | | [...] | + + + + + | [facility] | [address] | [place] [address] | | | ARASH, ИРИНА | TABITHA [...] [facility] | [address] | [place] [address] | | | SERVICES, CORE | PARK [...] [facility] | [address] | [place] [address] | | | ARASH, ИРИНА | [address] [...] | + + + + + | [facility] | [address] | [place] [address] | | | SERVICES, CORE | TABITHA [...] (H) | 70 - 99 mg/dL | [facility] - | | | GLUCOSE, [...] RODGERS | [address] | [place] [employer] | | | JULIANN SILVA OF [place] | [address] | [address] | | | TESTS | | | [...] MARQUAM | [address] | [place] [employer], [place] | | | RICARDO POINT OF CARE | [address] | [address] | | | TESTS | | | [...] ANA MARIA | [address] | [place], [place] | | | R[place]O [place] [facility] | [address] | [address] | | | TESTS | | | [...] [facility] | [address] | [place] [address] | | | SERVICES, CORE | TABITHA [...] | | | IMPRESSION | by: JANN JORGNESEN | | OF | | | | [...] + + + + + | [facility] | [address] | [place] [employer], [place] | | | CARDIOLOGY | [address] | [address] | | + + + + + [...] [facility] | [address] | [place] [employer] | | | JULIANN SILVA OF CARE | [address] | [address] | | | TESTS | | | | + + + + + PH-XK-QQF-HB,POC RT (03/19/2017 1:04 PM PDT) + + [...] [facility] | [address] | [place] [employer] | | | JULIANN SILVA OF CARE | [address] | [address] | | | TESTS | | | [...] + + + + | PRODUCT | [id number] | | [facility] | | | UNIT [...] + + + + | EXPIRATION | [id number] | | [facility] | | | DATE [...] + + + + | BLOOD | [id number] | | [facility] | | | PRODUCT [...] [facility] | [address] | [place] [address] | | | SERVICES, | [address] [...] + + + + | PRODUCT | [id number] | | [facility] | | | UNIT [...] + + + + | EXPIRATION | [id number] | | [facility] | | | DATE [...] + + + + | BLOOD | [id number] | | [facility] | | | PRODUCT [...] [facility] | [address] | [place] [address] | | | SERVICES, | [address] [...] + + + + | PRODUCT | [id number] | | [facility] | | | UNIT [...] + + + + | EXPIRATION | [id number] | | [facility] | | | DATE [...] + + + + | BLOOD | [id number] | | [facility] | | | PRODUCT [...] | [facility] | [address] | [place] [address] | | | SERVICES, | [address] [...] + + + + | PRODUCT | [id number] | | [facility] | | | UNIT [...] + + + + | EXPIRATION | [id number] | | [facility] | | | DATE [...] + + + + | BLOOD | [id number] | | [facility] | | | PRODUCT [...] [facility] | [address] | [place] [address] | | | SERVICES, | [address] [...] | + + + + + | [facility] | [address] [facility] | [place] [address] | | | SERVICES, CORE | TABITHA [...] | | | LABORATORY | | | JAPANESE | | | SERVICES, | | | [...] [facility] | [address] | [place] [address] | | | ARASH, ИРИНА | [address]ARK [...] [facility] | [address] | [place] [address] | | | SERVICES, CORE | PARK [...] | + + + + + | [facility] | [address] | [place] [address] | | | SERVICES, CORE | [address] | | | + + + + + SC ECMO REV (EXT)AND/OR DECANNULATION (03/19/2017 12:36 PM [...] Siria | | | GISELL Preston PhD [place] [address] [id number] [place], | | | [place] [address] | | + + + ABG-FULL ABL, POC (03/19/2017 12:14 PM PDT) + + + + + + | Component | Value | Ref Range | Performed | Pathologist | | | | | At | Signature | + + + + + + | PH | 7.42 | 7.37 - 7.44 | [facility] - | | | ARTERIAL, | | [...] - [facility] | [address] | [place], [place] | | | JULIANN SILVA OF CARE | [address] | [address] | | | TESTS | | | | + + + + + ABG-FULL ABL POC (03/19/2017 11:27 AM PDT) + + [...] [facility] | [address] | [place], [place] | | | JULIANN SILVA OF CARE | [facility] | [address] | | | TESTS | | | | + + + + + HR-OL-HOX-HB,POC RT (03/19/2017 10:24 AM PDT) + + [...] | [facility] | [address] | [place], [place] | | | JULIANN SILVA OF CARE | [address] | [address] | | | TESTS | | | [...] R[facility] | [address] | [place] [employer], [place] | | | RICARDO POINT OF CARE | [address] | [address] | | | TESTS | | | | + + + + + NT-BY-HWU-HB,POC RT (03/19/2017 10:06 AM PDT) + + [...] | | | | | | JULIANN SIVLA | | | | | | OF [...] + + + | E[facility]OGIO RODGERS | [address] | [place] [employer], [place] | | | RICARDO POINT OF CARE | [address] | [address] | | | TESTS | | | | + + + + + MN-ND-TWU-KARY ISIDRO RT (03/19/2017 9:51 AM PDT) + + [...] MARIA | [address] | [place] [employer], [place] | | | JULIANN SILAV OF [place] | [address] | [address] | | | TESTS | | | [...] + + + + | PRODUCT | [id number] | | [facility] | | | UNIT [...] + + + + | EXPIRATION | [id number] | | [facility] | | | DATE [...] + + + + | BLOOD | [id number] | | [facility] | | | PRODUCT [...] | + + + + + | [facility] | [address] | [place] [address] | | | SERVICES, | [address] [...] + + + + | PRODUCT | [id number] | | [facility] | | | UNIT [...] + + + + | EXPIRATION | [id number] | | [facility] | | | DATE [...] + + + + | BLOOD | [id number] | | [facility] | | | PRODUCT [...] | + + + + + | [facility] | [address] | [place] [address] | | | SERVICES, | [address] [...] + + + + | PRODUCT | [id number] | | [facility] | | | UNIT [...] + + + + | EXPIRATION | [id number] | | [facility] | | | DATE [...] + + + + | BLOOD | [id number] | | [facility] | | | PRODUCT [...] | + + + + + | [facility] | [address] | [place] [address] | | | SERVICES, | [address] [...] + + + + | PRODUCT | [id number] | | [facility] | | | UNIT [...] + + + + | EXPIRATION | [id number] | | [facility] | | | DATE [...] + + + + | BLOOD | [id number] | | [facility] | | | PRODUCT [...] [facility] | [address] | [place] [address] | | | SERVICES, | [address] | | | | TRANSFUSION MEDICINE | | | | + + + + + X-RAY PORTABLE CHEST 1 VIEW (03/19/2017 9:13 AM PDT) + + | Specimen | + + | | + + + + + | Narrative | Performed At | + + + | EXAM: SC CHEST 1 VIEW HISTORY: ECMO. Evaluate cannula | [facility] | | placement. COMPARISON: Yesterday FINDINGS: Endotracheal | RADIOLOGY VOICE | | tube, Hos[place]-Олег catheter and enteric tube remain in place. [...] Note | + + | Service Account, [employer] In Interface - 03/19/2017 9:17 AM PDT EXAM: SC CHEST 1 | | VIEW HISTORY: ECMO. Evaluate cannula placement.COMPARISON: YesterdayFINDINGS: | | Endotracheal tube, Hos[place]-Олег catheter and enteric tube remain in place. [...] - [facility] | [address] | [place], [place] | | | JULIANN SILVA OF CARE | [address] | [address] | | | TESTS | | | [...] R[facility]GERS | [address] | [place] [employer], [place] | | | JULIANN SILVA OF CARE | [address] | [address] | | | TESTS | | | [...] [facility] | [address] | [place] [address] | | | SERVICES, CORE | PARK [...] + | [facility] | [address] | [place], [place] | | | RICARDO POINT OF CARE | [address] | [address] | | | TESTS | | | [...] (H) | 70 - 99 mg/dL | [facility] - | | | GLUCOSE, [...] + + + | E[facility]OGIO RODGERS | [address] | [place] [employer] | | | JULIANN SILVA OF [facility] | [address] | [address] | | | TESTS | | | [...] [facility] | [address] | [place] [employer], [place] | | | JULIANN SILVA OF [place] | [facility] | [address] | | | TESTS | | | [...] ANA MARIA | [address] | [place] [employer] | | | RICARDO POINT OF CARE | [address] | [address] | | | TESTS | | | [...] | + + + + + | [facility] | [address] | [place] [address] | | | SERVICES, CORE | TABITHA [...] (H) | 70 - 99 mg/dL | [facility] - | | | GLUCOSE, [...] RODGERS | [address] | [place] [employer], [place] | | | JULIANN SILVA OF [place] | [facility] | [address] | | | TESTS | | | [...] [facility] | [address] | [place] | | | JULIANN SILVA OF CARE | [address] | [address] | | | TESTS | | | [...] (H) | 70 - 99 mg/dL | [facility] - | | | GLUCOSE, [...] MARIA | [address] | [place] [employer] | | | RICARDO POINT OF CARE | [address] | [address] | | | TESTS | | | [...] | + + + + + | [facility] | [address] [facility] | [place] [address] | | | ARASH, ИРИНА | TABITH[address] [...] | | | CITRATED | | | RICARDO POINT | | [...] EULOGIO RODGERS | [address] | [place] | | | JULIANN SILVA OF [facility] | [facility] | [address] | | | TESTS | | | [...] [facility] | [address] | [place] [address] | | | SERVICES, CORE | PARK [...] | + + + + + | [facility] | [address] | [place] [address] | | | SERVICES, CORE | [address] | | | + + + + + MAGNESIUM, PLASMA (03/19/2017 1:11 AM PDT) + +---------+ + + + | Component | Value | Ref Range | Performed | Pathologist | | | | | At | Signature | + +---------+ + + + | MAGNESIUM,P | 2.6 (H) | 1.8 - 2.5 mg/dL | [facility] | | | LASMA | | | [...] | + + + + + | [facility] | [address] | [place] [address] | | | SERVICES, CORE | TABITHA [...] | + + + + + | [facility] | [address] | [place] [address] | | | SERVICES, CORE | TABITHA [...] [facility] | [address] | [place] [address] | | | SERVICES, CORE | PARK [...] [facility] | [address] | [place] [address] | | | ARASH, ИРИНА | TABITHA [...] | | | LABORATORY | | | JAPANESE | | | SERVICES, | | | [...] | + + + + + | [facility] | [address] [facility] | [place] [address] | | | SERVICES, CORE | TABITHA [...] [facility] | [address] | [place] [address] | | | SERVICES, CORE | PARK [...] | + + + + + | [facility] | [address] [facility] | [place] [address] | | | SERVICES, CORE | PARK [...] (H) | 70 - 99 mg/dL | [facility] - | | | GLUCOSE, [...] RODGERS | [address] | [place] [employer] | | | JULIANN SILVA OF [place]LEX[place] | [facility] | [address] | | | TESTS | | | [...] | + + + + + | [facility] | [address] | [place] [address] | | | SERVICES, CORE | TABITHA [...] (H) | 70 - 99 mg/dL | [facility] - | | | GLUCOSE, | | [...] R[facility]GERS | [address] | [place] [employer] | | | RICARDO POINT OF CARE | [address] | [address] | | | TESTS | | | [...] [facility] | [address] | [place] [employer] | | | RICARDO POINT OF CARE | [address] | [address] | | | TESTS | | | [...] | + + + + + | [facility] | [address] | [place] [address] | | | SERVICES, CORE | TABITHA [...] (H) | 70 - 99 mg/dL | [facility] - | | | GLUCOSE, [...] RODG[facility] | [address] | [place], [place] | | | JULIANN SILVA OF [facility] | [address] | [address] | | | TESTS | | | [...] MARQU[place] | [address] | [place], [place] | | | JULIANN SILVA OF CARE | [address] | [address] | | | TESTS | | | [...] ANA MARIA | [address] | [place], [place] | | | [place] [facility] | [address] | [address] | | | TESTS | | | [...] [facility] | [address] | [place] [address] | | | SERVICES, CORE | PARK [...] | + + + + + | [facility] | [address] | [place] [address] | | | SERVICES, CORE | TABITHA [...] (H) | 70 - 99 mg/dL | [facility] - | | | GLUCOSE, [...] R[facility] | [address] | [place], [place] | | | JULIANN SILVA OF [facility] | [address] | [address] | | | TESTS | | | [...] | + + + + + | [facility] | [address] | [place] [address] | | | SERVICES, ИРИНА | TABITHA [...] MARIA | [address] | [place], [place] | | | JULIANN SILVA OF CARE | [facility] | [address] | | | TESTS | | | [...] (H) | 70 - 99 mg/dL | [facility] - | | | GLUCOSE, [...] RODGERS | [address] | [place], [place] | | | JULIANN SILVA OF CARE | [facility] | [address] | | | TESTS | | | [...] | + + + + + | [facility] | [address] | [place] [address] | | | SERVICES, CORE | PARK [...] | | High: 200-499 mg/dL Very | SERVICES, CORE | | High: >=500 mg/dL | | + + + + + + + + | Performing | Address | City/State/Zipcode | Phone Number | | Organization | | | | + + + + + | [facility] | [address] | [place] [address] | | | ARASH, ИРИНА | TABITHA [...] MARQUAM | [address] | [place], [place] | | | [facility] [facility] | [address] | [address] | | | TESTS | | | [...] ANA MARIA | [address] | [place], [place] | | | [place] [facility] | [address] | [address] | | | TESTS | | | [...] [facility] | [address] | [place] [address] | | | SERVICES, CORE | PARK [...] | + + + + + | [facility] | [address] | [place] [address] | | | SERVICES, CORE | PARK [...] [facility] | [address] | [place] [address] | | | SERVICES, CORE | PARK [...] | + + + + + | [facility] | [address] | [place] [address] | | | SERVICES, CORE | TABITHA [...] | | | LABORATORY | | | JAPANESE | | | SERVICES, | | | [...] [facility] | [address] | [place] [address] | | | SERVICES, CORE | TABITHA [...] | + + + + + | [facility] | [address] | [place] [address] | | | SERVICES, CORE | TABITHA [...] | + + + + + | [facility] | [address] | [place] [address] | | | ARASH, ИРИНА | TABITHA [...] [facility] | [address] | [place] [address] | | | SERVICES, CORE | PARK [...] MARQUAM | [address] | [place], [place] | | | [facility] [facility] | [address] | [address] | | | TESTS | | | [...] RODGERS | [address] | [employer], [place] | | | [facility] [facility] | [address] | [address] | | | TESTS | | | [...] [facility] | [address] | [place] [address] | | | SERVICES, CORE | PARK [...] MARIA | [address] | [place], [place] | | | [place] [facility] | [address] | [address] | | | TESTS | | | [...] | + + + + + | [facility] | [address] | [place] [address] | | | SERVICES, CORE | PARK [...] | 58 (L) | >300 mmHg | EULOGIO | | | RATIO | | | [...] | + + + + + | [facility] | [address] | [place] [address] | | | SERVICES, CORE | PARK [...] + + + | [facility] - | [id number] | [place] [address] | | | PORTFORMERLY NAMED [facility] | | | | + + + [...] [facility] | [address] | [place] [employer], [place] | | | RICARDO POINT OF CARE | [address] | [address] | | | TESTS | | | [...] [facility] | [address] | [place], [place] | | | JULIANN SILVA OF ALEXIS | [address] | [address] | | | TESTS | | | [...] [facility] | [address] | [place] [address] | | | SERVICES, ИРИНА | TABITHA [...] + + | [facility] | [address] | [place] [address] | | | ARASH, ИРИНА | TABITHA [...] (H) | 70 - 99 mg/dL | [facility] - | | | GLUCOSE, [...] [facility] | [address] | [place] [employer], [place] | | | JULIANN SILVA OF ALEXIS | [facility] | [address] | | | TESTS | | | [...] R[facility] | [address] | [place] [employer], [place] | | | JULIANN SILVA OF [place]LEX[place] | [address] | [address] | | | TESTS | | | | + + + + + X-RAY PORTABLE CHEST 1 VIEW (03/18/2017 6:05 AM PDT) + + | Specimen | + + | | + + + + + | Narrative | Performed At | + + + | EXAM: SC CHEST 1 VIEW HISTORY: ECMO. Evaluate cannula placement. | [facility] | | COMPARISON: Yesterday FINDINGS: Endotracheal tube tip is | RADIOLOGY VOICE | | 2.5 cm above the jefferson. Enteric tube tip in the stomach. [facility] | RECOGNITION | | catheter tip projects [...] Note | + + | Service Account, [employer] In Interface - 03/18/2017 8:39 AM PDT EXAM: SC CHEST 1 | | VIEW HISTORY: ECMO. Evaluate cannula placement.COMPARISON: YesterdayFINDINGS: | | Endotracheal tube tip is 2.5 cm above the jefferson. Enteric tube tip in the stomach. | | [place] catheter tip projects in the main pulmonary [...] [facility] | [address] | [place] [employer], [place] | | | RICARDO POINT OF CARE | [address] | [address] | | | TESTS | | | [...] MARIA | [address] | [place], [place] | | | RICARDO [place] [facility] | [facility] | [address] | | | TESTS | | | [...] | + + + + + | [facility] | [address] | [place] [address] | | | SERVICES, CORE | TABITHA [...] [facility] | [address] | [place], [place] | | | JULIANN SILVA OF ALEXIS | [address] | [address] | | | TESTS | | | [...] ANA MARIA | [address] | [place] [employer], [place] | | | JULIANN SILVA OF [facility] | [address] | [address] | | | TESTS | | | [...] [facility] | [address] | [place] [address] | | | SERVICES, | [address] [...] [facility] | [address] | [place] [address] | | | SERVICES, | [address] [...] + + + + | PRODUCT | [id number] | | [facility] | | | UNIT [...] + + + + | EXPIRATION | [id number] | | [facility] | | | DATE [...] + + + + | BLOOD | [id number] | | [facility] | | | PRODUCT [...] [facility] | [address] | [place] [address] | | | SERVICES, | [address] [...] | | AMPLITUDE - | | | MARLAISHA | | | CITRATED | | | [...] MARIA | [address] | [place] [employer], [place] | | | JULIANN SILVA OF CARE | [address] | [address] | | | TESTS | | | [...] [facility] | [address] | [place] [address] | | | SERVICES, CORE | TABITHA [...] | [facility] | [address] [facility] | [place] [address] | | | SERVICES, ИРИНА | TABITHA [...] | + + + + + | [facility] | [address] | [place] [address] | | | SERVICES, CORE | PARK [...] [facility] | [address] | [place] [address] | | | SERVICES, CORE | PARK [...] | | | LABORATORY | | | JAPANESE | | | SERVICES, | | | [...] | + + + + + | [facility] | [address] | [place] [address] | | | SERVICES, ИРИНА | TABITHA [...] | + + + + + | [facility] | [address] | [place] [address] | | | SERVICES, CORE | PARK [...] | + + + + + | [facility] | [address] | [place] [address] | | | SERVICES, CORE | TABITHA [...] [facility] | [address] | [place] [address] | | | SERVICES, CORE | TABITHA [...] + + + + + | [facility] | [address] | [place] | | | JULIANN SILVA OF [facility] | [facility] | [address] | | | TESTS | | | [...] [facility] | [address] | [place] [address] | | | SERVICES, CORE | TABITHA [...] [facility] | [address] | [place] [address] | | | ИРИНА ANTOINE | TABITHA [...] ANA MARIA | [address] | [place], [place] | | | JULIANN SILVA OF CARE | [facility] | [address] | | | TESTS | | | [...] (H) | 60 - 99 mg/dL | [facility] - | | | GLUCOSE, [...] [facility] | [address] | [place] [employer] | | | JULIANN SILVA OF CARE | [facility] | [address] | | | TESTS | | | [...] MARIA | [address] | [place], [place] | | | JULIANN SILVA OF ALEXIS | [address] | [address] | | | TESTS | | | [...] [facility] | [address] | [place], [place] | | | JULIANN SILVA OF CARE | [address] | [address] | | | TESTS | | | [...] | + + + + + | [facility] | [address] | [place] [address] | | | SERVICES, CORE | TABITHA [...] (H) | 60 - 99 mg/dL | [facility] - | | | GLUCOSE, [...] [facility] | [address] | [place] [employer], [place] | | | RICARDO POINT OF CARE | [address] | [address] | | | TESTS | | | [...] [facility] | [address] | [place] [address] | | | SERVICES, ИРИНА | [address] [...] [facility] | [address] | [place] [address] | | | ИРИНА ANTOINE | PARK [...] [facility] | [address] | [place] [address] | | | SERVICES, CORE | PARK [...] | + + + + + | [facility] | [address] | [place] [address] | | | SERVICES, CORE | TABITHA [...] | + + + + + | [facility] | [address] | [place] [address] | | | SERVICES, CORE | PARK [...] [facility] | [address] | [place] | | | JULIANN SILVA OF CARE | [facility] | [address] | | | TESTS | | | [...] (H) | 60 - 99 mg/dL | [facility] - | | | GLUCOSE, [...] MARIA | [address] | [place] [employer] | | | JULIANN SILVA OF [facility] | [address] | [address] | | | TESTS | | | [...] | 58 (L) | >300 mmHg | [facility] | | | RATIO | | | [...] | + + + + + | [facility] | [address] | [place] [address] | | | SERVICES, CORE | PARK [...] [facility] | [address] | [place] [employer] | | | JULIANN SILVA OF CARE | [facility] | [address] | | | TESTS | | | [...] MARIA | [address] | [place] [employer] | | | JULIANN SILVA OF [facility] | [address] | [address] | | | TESTS | | | [...] + + + + | PRODUCT | [id number] | | [facility] | | | UNIT [...] + + + + | EXPIRATION | [id number] | | [facility] | | | DATE [...] + + + + | BLOOD | [id number] | | [facility] | | | PRODUCT [...] | + + + + + | [facility] | [address] | [place] [address] | | | SERVICES, | [address] [...] + + + + | PRODUCT | [id number] | | [facility] | | | UNIT [...] + + + + | EXPIRATION | [id number] | | [facility] | | | DATE [...] + + + + | BLOOD | [id number] | | [facility] | | | PRODUCT [...] | + + + + + | [employer] | [address] [facility] | [place] [address] | | | SERVICES, | [address] [...] [facility] | [address] | [place] [employer], [place] | | | JULIANN SILVA OF CARE | [address] | [address] | | | TESTS | | | [...] [facility] | [address] | [place] [address] | | | SERVICES, CORE | [address] | | | + + + + + HEPARIN, EITHER STANDARD / LMW, BLOOD (03/17/2017 2:23 PM PDT) + +-------+ + + + | Component | Value | Ref Range | Performed | Pathologist | | | | | At | Signature | + +-------+ + + + | HEPARIN, | 0.31 | U/mL | [facility] | | | STD LMW | | [...] [facility] | [address] | [place] [address] | | | SERVICES, CORE | PARK [...] [facility] | [address] | [place] [address] | | | SERVICES, CORE | PARK [...] [facility] | [address] | [place] [address] | | | SERVICES, CORE | TABITHA [...] | | | LABORATORY | | | JAPANESE | | | SERVICES, | | | [...] | + + + + + | [facility] | [address] | [place] [address] | | | SERVICES, CORE | PARK [...] [facility] | [address] | [place] [address] | | | SERVICES, CORE | TABITHA [...] [facility] | [address] | [place] [address] | | | SERVICES, CORE | TABITHA [...] | 115 (L) | >300 mmHg | [facility] | | | RATIO | | | [...] | + + + + + | [facility] | [address] | [place] [address] | | | ARASH, ИРИНА | PARK [...] [facility] | [address] | [place] [employer] | | | RICARDO POINT OF CARE | [address] | [address] | | | TESTS | | | [...] | + + + + + | [facility] | [address] | [place] [address] | | | SERVICES, CORE | TABITHA [...] (H) | 60 - 99 mg/dL | [facility] - | | | GLUCOSE, | | [...] [facility] | [address] | [place] [employer], [place] | | | RICARDO POINT OF CARE | [address] | [address] | | | TESTS | | | [...] Note | + + | Service Account, [employer] In Interface - 03/17/2017 6:18 PM PDT [...] Note | + + | Service Account, [employer] - 03/17/2017 6:17 PM PDT [...] [facility] | [address] | [place], [place] | | | RICARDO POINT OF CARE | [address] | [address] | | | TESTS | | | [...] | + + + + + | [facility] | [address] | [place] [address] | | | SERVICES, CORE | TABITHA [...] | EJECTION | 22.5 | % | [facility] DEPT | | | FRACTION | | | OF | | | RANGE MEAN | | | CARDIOLOGY | | | VALUE | | | | | + + + + + + + + | Specimen | + + | | + + + + -------+ | Narrative | Performed At | + + -------+ | Counts Include [facility] | [facility] DE PT OF | | [facility] | CARDIOLOG Y | | [place] [address] [facility] | | | [place] [address] Pt Name: | | | RON MCKEON Study Date/Time 03/17/2017 / 10:30:26 | | | AMMRN: [id number] Most recent | | | prior: 03/15/2017Acc #: [id number] No. | | | previous echos: 1DOB: 1955 61 years Heart | | | Rate: 139 bpmHeight: 69.0 | | | in Blood Pressure: 133/83 | | | mm/HgWeight: 258.0 | | | lb Gender: | | | MBSA: 2.30 m2 Order | | | ID: [id number] Sales Systems Engineer: Mauri Domingo [facility] | | | Referring Provider: Mellisa Rubalcava [facility] | | | Performed: Limited 2D, Color Doppler and Spectral Doppler | | | Limited.Study Quality: Fair.Exam Indication: Heart failure; ECMO; s/p | | | STEMIHistory: 61 year old male with a past medical history significant | | | for hypertension, hyperlipidemia, ongoing tobacco use and | | | pre-diabetes who is transferred to [facility] with cardiogenic shock in the [...] | | | Report electronically signed by: [id number] Jen Ovalle MD, PhD | | | (03/17/2017, 1:53:40 PM) Final | | | | | |Report electronically signed by: [id number] Jen Ovalle MD, PhD (03/17/2017, | | |1:53:40 PM) | | | | | | | | | | | | Final | | + + -------+ + + | Procedure Note | + + | Interface, Cardiology Results - 03/17/2017 1:53 PM [facility] | | [facility] [address] [place] [address] | | [place], [place] [address] Pt Name: RON MCKEON Study Date/Time 03/17/2017 / 10:30:26 AMMRN: [id number] Most | | recent prior: 03/15/2017Acc #: [id number] No. previous echos: 1DOB: | | 1955 61 years Heart Rate: 139 bpmHeight: 69.0 in Blood | | Pressure: 133/83 mm/HgWeight: 258.0 lb Gender: MBSA: | | 2.30 m2 Order ID: [id number] Sales Systems Engineer: Mauri Domingo | | RDCSReferring Provider: Mellisa Rubalcava Location: [facility] Performed: | | Limited 2D, Color Doppler and Spectral Doppler Limited.Study Quality: Fair.Exam | | Indication: Heart failure; ECMO; s/p STEMIHistory: 61 year old male with a past medical | | history significant for hypertension, hyperlipidemia, ongoing tobacco use and | | pre-diabetes who is transferred to [facility] with cardiogenic shock in the [...] | | Scoring: Report electronically signed by: [id number] Jen Ovalle MD, PhD (03/17/2017, | | [...] | | | |Report electronically signed by: [id number] Jen Ovalle MD, PhD (03/17/2017, | |1:53:40 PM) | | | | | | | | Final | + + + + + + + | Performing | Address | City/State/Zipcode | Phone Number | | Organization | | | | + + + + + | [facility] | [address] | [place], [place] | | | CARDIOLOGY | [address] | [address] | | + + + + + [...] [facility] | [address] | [place] | | | RICARDO POINT OF CARE | [address] | [address] | | | TESTS | | | [...] [facility] | [address] | [place], [place] | | | RICARDO POINT OF CARE | [address] | [address] | | | TESTS | | | [...] [facility] | [address] | [place] [address] | | | SERVICES, CORE | PARK [...] [facility] | [address] | [place] [address] | | | SERVICES, CORE | PARK [...] | + + + + + | [facility] | [address] | [place] [address] | | | SERVICES, ИРИНА | TABITHA [...] [facility] | [address] | [place] | | | RICARDO POINT OF CARE | [facility] | [address] | | | TESTS | | | [...] | [facility] | [address] | [place] | | | RICARDO POINT OF CARE | [address] | [address] | | | TESTS | | | [...] + + + | [facility] | [address] | [place] | | | RICARDO POINT OF [facility] | [address] | [address] | | | TESTS | | | [...] [facility] | [address] | [place] [address] | | | SERVICES, CORE | TABITHA [...] | + + + + + | [facility] | [address] | [place] [address] | | | SERVICES, CORE | [address] | | | + + + + + X-RAY PORTABLE CHEST 1 VIEW (03/17/2017 5:37 AM PDT) + + | Specimen | + + | | + + + + + | Narrative | Performed At | + + + | EXAM: SC CHEST 1 VIEW 03/17/17 04:53:29 HISTORY: On ECMO | [facility] | | COMPARISON: Yesterday FINDINGS: Intra-aortic balloon [...] | + + | Service Account, [employer] In Interface - 03/17/2017 9:44 AM PDT EXAM: SC CHEST 1 | | VIEW 03/17/17 04:53:29 [...] [facility] | [address] | [place], [place] | | | JULIANN SILVA OF CARE | [address] | [address] | | | TESTS | | | [...] [facility] | [address] | [place] [address] | | | SERVICESИРИНА | [address] [...] | | | LABORATORY | | | JAPANESE | | | SERVICES, | | | [...] | + + + + + | [facility] | [address] | [place] [address] | | | SERVICES, ИРИНА | [address] | | | + + + + + MAGNESIUM, PLASMA (03/17/2017 3:10 AM PDT) + +-------+ + + + | Component | Value | Ref Range | Performed | Pathologist | | | | | At | Signature | + +-------+ + + + | MAGNESIUM,P | 2.0 | 1.8 - 2.5 mg/dL | [facility] [...] | + + + + + | [facility] | [address] | [place] [id number] | | | ИРИНА ANTOINE | TABITHA [...] [facility] | [address] | [place] | | | JULIANN SILVA OF CARE | [address] | [address] | | | TESTS | | | [...] | + + + + + | [facility] | [address] | [place] [address] | | | SERVICES, CORE | PARK [...] | + + + + + | [facility] | [address] [facility] | [place] [address] | | | SERVICES, CORE | TABITHA [...] | + + + + + | [facility] | [address] | [place] [address] | | | SERVICES, CORE | TABITHA [...] | + + + + + | [facility] | [address] | [place] [address] | | | ARASH, ИРИНА | [address] [...] [facility] | [address] | [place] [address] | | | SERVICES, CORE | PARK [...] [facility] | [address] | [place] [address] | | | SERVICES, CORE | PARK [...] [facility] | [address] | [place] [address] | | | SERVICES, CORE | PARK [...] | + + + + + | [facility] | [address] | [place] [address] | | | SERVICES, CORE | TABITHA [...] | + + + + + | [facility] | [address] | [place] [address] | | | SERVICES, CORE | PARK [...] [facility] | [address] | [place] [address] | | | SERVICES, CORE | TABITHA [...] DEPT OF | [address] | [place] [employer], [place] | | | CARDIOLOGY | [address] | [address] | | + + + + + WX-KR-HUH-HB,POC RT (03/17/2017 12:44 AM PDT) + + [...] | | | POC | | | MARRANDIAM | | | [...] [facility] | [address] | [place], [place] | | | RICARDO POINT OF CARE | [address] | [address] | | | TESTS | | | [...] MARRANDIAM | [address] | [place] | | | JULIANN SILVA OF CARE | [facility] | [address] | | | TESTS | | | [...] [facility] | [address] | [place] | | | JULIANN SILVA OF CARE | [address] | [address] | | | TESTS | | | [...] | + + + + + | [facility] | [address] | [place] [address] | | | SERVICES, ИРИНА | TABITHA [...] [facility] | [address] | [place] | | | RICARDO POINT OF CARE | [address] | [address] | | | TESTS | | | [...] ANA MARIA | [address] | [place], [place] | | | RICARDO POINT OF CARE | [address] | [address] | | | TESTS | | | [...] | + + + + + | [facility] | [address] | [place] [address] | | | SERVICES, CORE | TABITHA [...] MARIA | [address] | [place] | | | JULIANN SILVA OF ALEXIS | [address] | [address] | | | TESTS | | | [...] | + + + + + | [facility] | [address] | [place] [address] | | | ИРИНА ANTOINE | TABITHA [...] (H) | 60 - 99 mg/dL | [facility] - | | | GLUCOSE, [...] MARIA | [address] | [place] | | | RICARDO POINT OF CARE | [address] | [address] | | | TESTS | | | [...] MARIA | [address] | [place] | | | JULIANN SILVA OF ALEXIS | [facility] | [address] | | | TESTS | | | [...] | pause verifies correct patient, procedure, equipment, naval surface fire support planner | | | and site/side marked as [...] | [facility] | [address] [facility] | [place] [address] | | | SERVICES, CORE | PARK [...] [facility] | [address] | [place] [address] | | | SERVICES, CORE | PARK [...] [facility] | [address] | [place] [address] | | | SERVICES, CORE | PARK [...] [facility] | [address] | [place] [address] | | | SERVICES, CORE | PARK [...] | | | LABORATORY | | | JAPANESE | | | SERVICES, | | | [...] | + + + + + | [facility] | [address] | [place] [address] | | | SERVICES, CORE | TABITHA [...] [facility] | [address] | [place] [address] | | | SERVICES, CORE | PARK [...] | + + + + + | [facility] | [address] | [place] [address] | | | SERVICES, CORE | TABITHA [...] [facility] | [address] | [place] | | | JULIANN SILVA OF ALEXIS | [address] | [address] | | | TESTS | | | [...] MARIA | [address] | [place], [place] | | | JULIANN SILVA OF ALEXIS | [facility] | [address] | | | TESTS | | | | + + + + + CAPILLARY BLOOD GLUCOSE (NO CHG), POC (03/16/2017 1:16 PM PDT) + +-------+ + + + | Component | Value | Ref Range | Performed | Pathologist | | | | | At | Signature | + +-------+ + + + | BLOOD | 90 | 60 - 99 mg/dL | [facility] - | | | GLUCOSE, [...] [facility] | [address] | [place], [place] | | | RICARDO POINT OF CARE | [address] | [address] | | | TESTS | | | [...] [facility] | [address] | [place] | | | GURINDER SILVA | [facility] | [address] | | | TESTS | | | [...] levels of 0.35 - 0.7 U/mL | SERVICESИРИНА | + + + + + + + + | Performing | Address | City/State/Zipcode | Phone Number | | Organization | | | | + + + + + | [facility] | [address] [facility] | [place] [address] | | | SERVICES, ИРИНА | [address]ITH[address] [...] | | | LABORATORY | | | JAPANESE | | | SERVICES, | | | [...] | + + + + + | [facility] | [address] | [place] [address] | | | SERVICES, CORE | TABITHA [...] (H) | 60 - 99 mg/dL | [facility] - | | | GLUCOSE, [...] | [facility] | [address] | [place], [place] | | | GURINDER SILVA | [facility] | [address] | | | TESTS | | | [...] | + + + + + | [facility] | [address] | [place] [address] | | | ИРИНА ANTOINE | TABITHA [...] [facility] | [address] | [place] | | | JULIANN SILVA OF CARE | [facility] | [address] | | | TESTS | | | | + + + + + OPERATION RECORD (03/16/2017 9:30 AM PDT) + + | Procedure Note | + + | Dale Mak MD - 03/15/2017 3:42 PM PDT Date of Service: 03/15/2017 Attending | | Surgeon:Ron Powell MD. Cook Short Order(s):Dale Mak MD. | | Preoperative Diagnoses: 1.Cardiogenic [...] The | | patient was transferred to [facility] for further management. At [facility], the patient continued | | [...] cannulation with micropuncture | | wire. A 7-Icelandic sheath was placed in an antegrade direction down the SFA for distal | | perfusion. A 19-Icelandic arterial cannula was placed in a retrograde [...] 03/15/2017 15:23:00DT: 03/15/2017 15:42:27Job #: | | [id number] | | | |A 19-Icelandic arterial cannula was placed in a retrograde [...] |HS/MODL | | | | | | /[id number] | + + CBC (HEMOGRAM) ONLY (03/16/2017 [...] [facility] | [address] | [place] [address] | | | SERVICES, CORE | [address] | | | + + + + + HEPARIN, EITHER STANDARD / LMW, BLOOD (03/16/2017 9:15 AM PDT) + +-------+ + + + | Component | Value | Ref Range | Performed | Pathologist | | | | | At | Signature | + +-------+ + + + | HEPARIN, | 0.49 | U/mL | EULOGIO | | | STD LMW | | [...] [facility] | [address] | [place] [address] | | | SERVICES, CORE | [address] [...] | + + + + + | [facility] | [address] | [place] [address] | | | SERVICES, CORE | TABITHA [...] [facility] | [address] | [place] [employer], [place] | | | JULIANN SILVA OF ALEX[place] | [address] | [address] | | | TESTS | | | [...] [facility] | [address] | [place], [place] | | | JULIANN SILVA OF CARE | [facility] | [phone] | | | TESTS | | | [...] [facility] | [address] | [place] [employer], [place] | | | [facility] | [address] | [phone] | | | TESTS | | | | + + + + + X-RAY PORTABLE CHEST 1 VIEW (03/16/2017 5:44 AM PDT) + + | Specimen | + + | | + + + + + | Narrative | Performed At | + + + | EXAM: SC CHEST 1 VIEW HISTORY: Evaluate cannula placement. heart | [facility] | | failure. COMPARISON: Yesterday FINDINGS: Endotracheal | RADIOLOGY VOICE | | tube, Hosston-Олег catheter and enteric tube remain in place. [...] Note | + + | Service Account, [employer] - 03/16/2017 8:27 AM PDT EXAM: SC CHEST 1 | | VIEW HISTORY: Evaluate cannula placement. heart failure.COMPARISON: YesterdayFINDINGS: | | Endotracheal tube, Hosston-Олег catheter and enteric tube remain in place. [...] [facility] | [address] | [place], [place] | | | [facility] | [address] | [phone] | | | TESTS | | | [...] (H) | 60 - 99 mg/dL | [facility] - | | | GLUCOSE, [...] [facility] | [address] | [place] [employer], [place] | | | JULIANN SILVA OF [facility] | [facility] | [address] | | | TESTS | | | | + + + + + HW-HR-AHH-KARY ISIDRO RT (03/16/2017 3:42 AM PDT) + + [...] [facility] | [address] | [place], [place] | | | JULIANN SILVA OF [place] | [address] | [phone] | | | TESTS | | | [...] [facility] | [address] | [place] [employer], [place] | | | [facility] | [address] | [address] | | | TESTS | | | [...] | + + + + + | [facility] | [address] | [place] [address] | | | SERVICES, CORE | TABITHA [...] | | AMPLITUDE - | | | MARLAISHA | | | CITRATED | | | [...] [facility] | [address] | [place] [employer], [place] | | | JULIANN SILVA OF [place] | [address] | [address] | | | TESTS | | | [...] | + + + + + | [facility] [facility] | [address] | [place] [address] | | | SERVICES, ИРИНА | TABITHA [...] [facility] | [address] | [place] [address] | | | SERVICES, CORE | PARK [...] | | | LABORATORY | | | JAPANESE | | | SERVICES, | | | [...] | + + + + + | [facility] | [address] | [place] [address] | | | SERVICES, CORE | TABITHA [...] [facility] | [address] | [place] [address] | | | SERVICES, CORE | PARK [...] | + + + + + | [facility] | [address] | [place] [address] | | | SERVICES, CORE | PARK [...] | + + + + + | [facility] | [address] | [place] [address] | | | ARASH, ИРИНА | TABITHA [...] | + + + + + | [facility] | [address] | [place] [address] | | | SERVICES, CORE | TABITHA [...] (H) | 60 - 99 mg/dL | [facility] - | | | GLUCOSE, [...] [facility] | [address] | [place], [place] | | | JULIANN SILVA OF CARE | [address] | [address] | | | TESTS | | | [...] [facility] | [address] | [place] [address] | | | SERVICES, CORE | PARK [...] [facility] | [address] | [place], [place] | | | JULIANN SILVA OF [facility] | [address] | [address] | | | TESTS | | | [...] | + + + + + | [facility] | [address] [facility] | [place] [address] | | | SERVICES, CORE | TABITHA [...] | | | LABORATORY | | | JAPANESE | | | SERVICES, | | | [...] AST CMNT | No Hemo | | [facility] | | | | | [...] | + + + + + | [facility] | [address] | [place] [address] | | | SERVICES, CORE | [address] | | | + + + + + YX-RA-RER-HB,POC RT (03/16/2017 12:22 AM PDT) + + [...] [facility] | [address] | [place] [employer], [place] | | | R[facility] POINT OF CARE | [address] | [address] | | | TESTS | | | [...] + + + | E[facility] | [address] | [place] [employer], [place] | | | [facility] POINT OF CARE | [address] | [address] | | | TESTS | | | [...] [facility] | [address] | [place] [employer], [place] | | | [facility] POINT OF CARE | [address] | [address] | | | TESTS | | | [...] E[facility]OGIO [facility] | [address] | [place] [employer], [place] | | | [place] POINT OF [facility] | [address] | [address] | | | TESTS | | | | + + + + + X-RAY PORTABLE CHEST 1 VIEW (03/15/2017 9:44 PM PDT) + + | Specimen | + + | | + + + + + | Narrative | Performed At | + + + | EXAM: SC CHEST 1 VIEW HISTORY: Evaluate new endotracheal [...] | + + | Service Account, [employer] In Interface - 03/16/2017 8:27 AM PDT EXAM: SC CHEST 1 | | VIEW HISTORY: Evaluate [...] [facility] | [address] | [place] [employer], [place] | | | JULIANN SILVA OF [place] | [address] | [address] | | | TESTS | | | [...] [facility] | [address] | [place] [employer], [place] | | | [facility] POINT OF CARE | [address] | [address] | | | TESTS | | | [...] [facility] | [address] | [place] [address] | | | SERVICES, CORE | PARK [...] [facility] | [address] | [place] [address] | | | SERVICES, CORE | PARK [...] [facility] | [address] | [place] [address] | | | SERVICES, [facility] | TABITHA ALICEA | | | + [...] | Ambubag and suction available at bedside. [facility] Mac 4 used to | | | visualize airway, Grade III view with old blood and new blood | | | present in laryngopharynx plus edema. A Cook Airway Exchange | | | catheter was [...] [facility] | [address] | [place] [employer], [place] | | | JULIANN SILVA OF [place] | [address] | [address] | | | TESTS | | | | + + + + + VG-GB-SID-HB,POC RT (03/15/2017 7:39 PM PDT) + + [...] [facility] | [address] | [place] [employer], [place] | | | JULIANN SILVA OF [place] | [address] | [address] | | | TESTS | | | [...] [facility] | [address] | [place] [employer], [place] | | | [facility] POINT OF CARE | [address] | [address] | | | TESTS | | | [...] [facility] | [address] | [place] [employer], [place] | | | [place], POINT OF CARE | [address] | [address] | | | TESTS | | | | + + + + + X-RAY PORTABLE CHEST 1 VIEW (03/15/2017 5:51 PM PDT) + + | Specimen | + + | | + + + + + | Narrative | Performed At | + + + | STUDY: SC CHEST 1 VIEW 03/15/17 17:40:08 COMPARISON: 03/15/17 at | [facility] | | 3:52 PM. HISTORY: Line placement. [...] Interface - 03/15/2017 6:20 PM PDT STUDY: SC CHEST 1 | | VIEW 03/15/17 17:40:08COMPARISON: [...] | | + +---------+ + + | [facility] | | | | [...] given by: Power of | | | irrigation service technician Patient identity confirmed per policy: Yes Team Pause: | | | Immediatly prior to the procedure a pause per protocol was called. A | | | pause verifies correct patient, procedure, equipment, naval surface fire support planner | | | and site/side marked as [...] modified Seldinger technique (a | | | eaubawjw-hqve-gsq-gcmfnv-bdxz-fwlv-gytzudc-xbz-rifovufy) was used for | | | vessel [...] Name: Ron Mckeon MRN: | | | [id number] 03/15/2017 Time: 5:26 PM Diagnosis: shock At [...] Jose Ramon Alvarado | | | R2, [facility] Emergency Medicine Personal Pager: [phone] | | | | | + + + LACTATE (03/15/2017 4:49 PM PDT) + + + + + + | Component | Value | Ref Range | Performed | Pathologist | | | | | At | Signature | + + + + + + | LACTATE | 7.5 () | mmol/L | [facility] | | | | | [...] | + + + + + | [facility] | [address] | [place] [address] | | | ИРИНА ANTOINE | [address] | | | + + + + + CAPILLARY BLOOD GLUCOSE (NO CHG), POC (03/15/2017 4:46 PM PDT) + +---------+ + + + | Component | Value | Ref Range | Performed | Pathologist | | | | | At | Signature | + +---------+ + + + | BLOOD | 266 (H) | 60 - 99 mg/dL | [facility] - | | | GLUCOSE, [...] [facility] | [address] | [place] [employer], [place] | | | [place] POINT OF CARE | [address] | [address] | | | TESTS | | | [...] | | [facility] - | | | ART POC | | | [facility] | | [...] [facility] | [address] | [place], [place] | | | JULIANN SILVA OF CARE | [facility] | [address] | | | TESTS | | | | + + + + + X-RAY PORTABLE CHEST 1 VIEW (03/15/2017 4:03 PM PDT) + + | Specimen | + + | | + + + + + | Narrative | Performed At | + + + | EXAM: SC CHEST 1 VIEW 03/15/17 15:42:37 HISTORY: ECMO [...] Service Lluvia, Radiant Res In Interface - 03/15/2017 6:18 PM PDT EXAM: SC CHEST 1 | | VIEW 03/15/17 15:42:37 [...] [facility] | [address] | [place], [place] | | | [facility] POINT OF [facility] | [address] | [address] | | | TESTS | | | [...] [facility] | [address] | [place] [employer], [place] | | | JULIANN SILVA OF CARE | [facility] | [address] | | | TESTS | | | [...] [facility] | [address] | [place], [place] | | | [facility] POINT OF CARE | [facility] | [address] | | | TESTS | | | [...] [facility] | [address] | [place] [address] | | | SERVICES, CORE | TABITHA [...] | + + + + + | [facility] | [address] | [place] [address] | | | SERVICES, CORE | TABITHA [...] [facility] | [address] | [place] [address] | | | SERVICES, CORE | PARK [...] [facility] | [address] | [place] [address] | | | SERVICES, CORE | PARK [...] | | | LABORATORY | | | JAPANESE | | | SERVICES, | | | [...] | + + + + + | [facility] | [address] | [place] [address] | | | SERVICES, CORE | TABITHA [...] Division of Cardiothoracic Surgery | | | [facility] - Mail Code [id number] | | | [place] [phone] | | + + + X-RAY PORTABLE CHEST 1 VIEW (03/15/2017 2:32 PM PDT) + + | Specimen | + + | | + + + + + | Narrative | Performed At | + + + | STUDY: SC CHEST 1 VIEW 03/15/17 14:21:08 COMPARISON: 03/15/17. | [facility] | | HISTORY: Introducer placement-June when back [...] Note | + + | Service Account, [employer] In Interface - 03/15/2017 2:46 PM PDT STUDY: SC CHEST 1 | | VIEW 03/15/17 14:21:08COMPARISON: [...] + + + + | PRODUCT | [id number] | | [facility] | | | UNIT [...] + + + + | EXPIRATION | [id number] | | [facility] | | | DATE [...] + + + + | BLOOD | [id number] | | [facility] | | | PRODUCT [...] | + + + + + | [facility] | [address] | [place] [address] | | | SERVICES, | [address] [...] + + + + | PRODUCT | [id number] | | [facility] | | | UNIT [...] + + + + | EXPIRATION | [id number] | | [facility] | | | DATE [...] + + + + | BLOOD | [id number] | | [facility] | | | PRODUCT [...] | + + + + + | [facility] | [address] | [place] [address] | | | SERVICES, | [address] [...] + + + + | PRODUCT | [id number] | | [facility] | | | UNIT [...] + + + + | EXPIRATION | [id number] | | [facility] | | | DATE [...] + + + + | BLOOD | [id number] | | [facility] | | | PRODUCT [...] | [facility] | [address] [facility] | [place] [address] | | | SERVICES, | [address] [...] + + + + | PRODUCT | [id number] | | [facility] | | | UNIT [...] + + + + | EXPIRATION | [id number] | | [facility] | | | DATE [...] + + + + | BLOOD | [id number] | | [facility] | | | PRODUCT [...] [facility] | [address] | [place] [address] | | | SERVICES, | [address] | | | | TRANSFUSION MEDICINE | | | | + + + + + QW-BM-STN-HB,POC RT (03/15/2017 1:23 PM PDT) + + [...] [facility] | [address] | [place], [place] | | | JULIANN SILVA OF [place] | [address] | [address] | | | TESTS | | | [...] [facility] | [address] | [place], [place] | | | RICARDO POINT OF CARE | [address] | [address] | | | TESTS | | | [...] Performed At | + + + | Counts Include [facility] | [facility]PT [facility] | | [facility]chocardiography | CARDIOLOGY | | Laboratory [address] [place] [address], | | | [place] [address] Pt Name: | | | RON Neena MCKEON Study Date/Time 03/15/2017 / 12:54:21 | | | [id number] Most recent | | | prior: -Acc #: [id number] No. previous | | | echos: 0DOB: 1955 61 years Heart Rate: | | | 145 bpmHeight: Blood | | | Pressure: 90/67 mm/HgWeight: 249.0 | | | lb Gender: | | | MBSA: 2.34 m2 Order | | | ID: [id number] Sales Systems Engineer: Vahid NOBLES | | | Referring Provider: Gaurav HobbsPatient Location: [facility] | | | Performed: 2D, [...] Report electronically signed by: | | | [id number] Yajaira Johnson MD (03/15/2017, 3:38:52 PM) Final | | | | | | | | | | | | Final | | + + + + + | Procedure Note | + + | Interface, Cardiology Results - 03/15/2017 3:38 PM [facility] | | [facility] [address] [place] [address] | | [place], [place] [address] Pt Name: RON Chaudhary | | MIKE Study Date/Time 03/15/2017 / 12:54:21 PMMRN: [id number] Most | | recent prior: -Acc #: [id number] No. previous echos: 0DOB: 1955 61 | | years Heart Rate: 145 bpmHeight: Blood Pressure: 90/67 | | mm/HgWeight: 249.0 lb Gender: MBSA: 2.34 m2 | | Order ID: [id number] Sales Systems Engineer: Vahid Parmar RCSReferring Provider: | | Gaurav [...] values Report electronically signed by: | | [id number] Yajaira Johnson MD (03/15/2017, 3:38:52 PM) Final [...] | | | |Report electronically signed by: [id number] Yajaira Johnson MD (03/15/2017, 3:38:52 PM) | | | | | | | | Final | + + + + + + + | Performing | Address | City/State/Zipcode | Phone Number | | Organization | | | | + + + + + | [facility] | [address] | [place], [place] | | | CARDIOLOGY | [address] | [address] | | + + + + + X-RAY PORTABLE CHEST 1 VIEW (03/15/2017 12:46 PM PDT) + + | Specimen | + + | | + + + + + | Narrative | Performed At | + + + | STUDY: SC CHEST 1 VIEW 03/15/17 12:12:08 COMPARISON: None. [...] Interface - 03/15/2017 1:10 PM PDT STUDY: SC CHEST 1 | | VIEW 03/15/17 12:12:08COMPARISON: [...] DEPT OF | [address] | [place], [place] | | | CARDIOLOGY | [address] | [address] | | + + + + + [...] [facility] | [address] | [place] [address] | | | SERVICES, | [address] [...] [facility] | [address] | [place] [address] | | | SERVICES, | [address] [...] + + + + + | [facility] | [address] | [place] [address] | | | SERVICES, CORE | TABITHA [...] | + + + + + | [facility] | [address] | [place] [address] | | | ИРИНА ANTOINE | TABITH[address] [...] | + + + + + | [facility] | [address] | [place] [address] | | | SERVICES, | [address] [...] [facility] | [address] | [place] [address] | | | SERVICES, ИРИНА | TABITHA [...] [facility] | [address] | [place] [address] | | | SERVICES, CORE | TABITHA [...] [facility] | [address] | [place] [address] | | | SERVICES, CORE | PARK [...] | | | LABORATORY | | | JAPANESE | | | SERVICES, | | | [...] | + + + + + | [facility] | [address] | [place] [address] | | | SERVICES, CORE | [address] | | | + + + + + PB-YI-YKY-HB,POC RT (03/15/2017 12:16 PM PDT) + + [...] + | [facility] | [address] | [place], [place] | | | [facility] [facility] | [facility] | [address] | | | TESTS | | | [...] DAILY, First dose on Thu | | 9:38 | | | | | 03/31/17 [...] | | | 03/15/17 at 1202, Until [facility] 04/02/17 | | | at 2030, [...] mL, intravenous, NEEDED, | | | Starting Thu03/24/17 at 1120, | | | Until Radha [...] mg, intramuscular, | | | NEEDED, Starting e 03/24/17 at | | | 1120, Until [...] PDT | | | | | Until [facility] 04/02/17 at 203, | | | [...] 9:37 | | | | | on Tu03/31/17 at 1345, Until | | AM PDT [...] 9:03 | | | | | on 03/23/17 at 2100, Until | | PM PDT [...] | | | | | | Until [facility] 04/02/17 at 2030, severe | | [...] | | | | | 04/02/17 at 2031, 1st line - for | | | [...] EVENING, | | | First dose on [facility] 04/02/17 at | | | 2100, Until Discontinued | | + +---+ | | | + +---+ documented in this encounter
--- OUTSIDE RECORDS SUMMARY | ~2019-02-08 | XMS | Encounter Summary ---
Demographics + + + | Address | [address] | | | [place] [address] | + + + | Home Phone | | + + + | Preferred Language | Unknown | + + + | Marital Status | | + + + | Mu-Ism Affiliation | NRP | + + + | Race | White | + + + | Ethnic Group | Not or | + + + Author + + + | Author | [facility] | + + + | Organization | [facility] | + + + | Address | Unknown | + + + | Phone | Unavailable | + + + Support + + + + + | Name | Relationship | Address | Phone | + + + + + | Venice Mckeon | ECON | [address] | | | | | [place] [address] | | + + + + + Care Team Providers + +------+ + | Care Bear Keeper Name | Role | Phone | + [...] | | | | | (HCC) | [place], [place] | for Health | | | | | Stenosis of | [phone] | and Healing | | | | | coronary | Phone: | [place], [place] | | | | | artery | [phone] | [address] | | | | | stent, | Fax: | Phone: | | | | | initial | [phone] | [phone] | | | | | encounter | | Fax: | | | | | Procedures | | [phone] | | | | | CONSULT TO [...] + + | 10/10/ | Hospital | [address] | Khurram Bedoya | | | 2018 - | Encounter | [address] | MD K[address] | | | | | [address] [place] [address] | [address] | | | 10/17/ | | [place], [place] | [place] | | | 2018 | | [address] | [address] | | | | | [phone] | [phone] | | | | | | | [...] Referring Physician & Institution: Other Dictation Primary/Outpatient Treating Plant Operator: Dr Jamal Guerrero MD Inpatient Attending Physician: Khurram Bedoya MD Author/Discharging Provider: LALA SCHOFIELD PA-C Admission Date: 10/10/2017 Discharge Date: 10/17/2017 Active Hospital Problems 1) *NSTEMI (non-ST elevated myocardial infarction) (HCC) 2) Coronary artery disease 3) Stenosis of coronary artery stent 4) Ischemic cardiomyopathy 5) Chronic systolic congestive heart failure (HCC) 7) Encounter for insertion of cardiac resynchronization therapy defibrillator (HIDE INSPECTOR AND SORTER-D) 8) Paroxysmal atrial flutter (HCC) 9) Influenza, pneumonia 10) Prediabetes 11) Tobacco use Procedures 10/15/17: Successful percutaneous coronary intervention to the ostial left circumflex. One 3.0 x 18 mm Resolute [place] drug-eluting stent. Successful percutaneous coronary transluminal angiopla sty of the distal left main extending into the left anterior descending coronary artery with final kissing balloon inflation with a 3.5 mm noncompliant and a 2.5 mm compliant balloon. 10/16/17: 1) EP study with VT induction 2) HIDE INSPECTOR AND SORTER-D implantation Reason For Admission: Consideration of complex PCI vs CABG for in-stent restenosis of LCx and LM/LAD stents Hospital Course: Please see H&P for hospital course at [place] prior to transfer to [facility]. Ron Mckeon is a 61 year old [...] treatment who was admitted in transfer from [place] on 10/11 for consideration of PCI vs [...] support--had one 3.0 x [address] [place] [address] ug-eluting stent placed in ostial L [...] 10/16. VT was induced, therefor e a HIDE INSPECTOR AND SORTER-D was implanted. He is discharging home in good condition with follow up in 1 week w ith his Treating Plant Operator. The following problems were addressed this [...] uenza and underwent a coronary angiogram at [place] which revealed in stent re-stenosis of both LM into LAD and LCx stents, mild disease of RCA. Transferred to [facility] for further onel luation. CTS was consulted for consideration of CABG vs complex PCI. Due to nonviable myocardium archie wn on cardiac PET and resting NM perfusion study, PCI was chosen over CABG. On 10/15 he underw ent angiography/PCI with impella support--had one 3.0 x 18 mm Resolute [place] drug-eluting chery nt placed in ostial L [...] II, Stage C. Etiology ischemic. TTE at [facility] showed EF 30-35%, mildly reduced RV function, [...] the past --ICD: placed by EP 10/16, HIDE INSPECTOR AND SORTER-D -- will need 1 week f/u for wound check, then 1 month device check with EP -- f/u with outpatient bicycle fitter 2-4 weeks # Paroxysmal Aflutter Noted Aflutter with RVR at admission in [place]; treated with amiodarone infusion. He w as transitioned to oral amiodarone and maintained normal rhythm. Given that the aflutter occ urred in setting of severe sepsis, will not continue amiodarone or warfarin. If he has recur rent arrhythmia, this will be noted on HIDE INSPECTOR AND SORTER-D and could consider anticoagulation at that time . However, he requires DAPT and has a possible history of recent GIB, so triple therapy shou ld be avoided if not necessary --rate control: metoprolol as above --anticoagulation: holding warfarin for now given DAPT and h/o GI B. Discuss further with outpatient bicycle fitter. May consider holding anticoagulation unless he demonstrates recurrent arrhythmia # Influenza type A - resolved # Community acquired pneumonia # Severe sepsis with shock, resolved Pt presented to [place] 10/03 found to be Flu Apositive with [...] sepsis management , fluid resuscitation. EGD at [place] on 10/05 showed gastritis, duodenitis, linear ulcerations [...] first post-hospitalization visit: 1. Wound check from HIDE INSPECTOR AND SORTER-D placement 2. Consider restarting lisinopril if BPs improve and Cr is stable 3. Instructed pt to restart metformin on 08/18 but reevaluate based on Cr Schedule the following appointment(s) when you get home KULWINDER Stevens. Go on 10/19/2017. Why: at 1:15pm for heart failure follow up, to re-check labwork, and to have your wound ch ecked Contact information HEART [address] [address] KULWINDER Stevens. Go on 11/11/2017. Why: at 9:30am for cardiology follow up and to have your device checked Contact information HEART [address] [address] Medication List START taking these medications Childrens [...] Resume on 10/19. Indications: type 2 diabetes [facility] metoprolol succinate 25 mg Tb24 Commonly known [...] circumflex. One 3.0 x 18 mm Resolute [place] drug-eluting stent. Successful percutaneous coronary transluminal angiop [...] ths. You should be cleared by your bicycle fitter prior to returning to driving. If you [...] How to Contact us: Cardiology Division Office [phone] Cardiology Patient Phone Line EDUIN [address] Dr[address] Dr., Dr., PA-C Connie Barber, NP Karen Paladino, RN Margaret Kleist, RN Evenings or weekends: Ask for on-call bicycle fitter Drug Eluting Stent 1. Please take Plavix (clopidogrel) everyday which helps to keep the stent open. You need t o take it every day for one year and do not stop unless you are told to by your bicycle fitter . 2. Take an aspirin 81 mg once daily indefinitely. 3. You were referred for cardiac rehab and should start now that you have had a stent place d. 4. Follow up with your bicycle fitter within 2-4 weeks. 5. No elective surgeries [...] Lala Schofield PA-C Instructor of Cardiovascular Medicine [facility] [place] [facility] I spent 36 minutes in coordination of care and wrnv-hs-swga with the patient and/or their s urrogate in which the problems above were discussed Associated attestation - Khurram Bedoya MD - 10/17/2017 3:22 PM PSTCardiology Anthony souza I have seen and examined Mr. Mckeon and discussed the patient's management [facility]. I reviewed the practitioner's note above and agree with the documented f indings and plan of care. KHURRAM BEDOYA MD Director of the [facility] Hypertrophic Cardiomyopathy Sustainability Officer of Echocardiography Cardio Techlimnologist Division of Cardiovascular Medicine documented in this encounter Discharge Instructions AttachmentsThe following attachments cannot be sent through Care Everywhere.WOUND CHECK (EN GLISH)ICD (IMPLANTABLE CARDIOVERTER-DEFIBRILLATOR): POST-OP (LEBANESE)PAIN POST-SURGERY: ACUT E (LEBANESE)OPIOIDS: SAFE USE (LEBANESE)OPIOIDS: STORAGE AND DISPOSAL: GENERAL INFO (LEBANESE)d ocumented in this encounter Medications at Time [...] Information: Implant date: 10/16/17 BiV-ICD pulse generator: Supervisor Cartography: [employer] Model number: [id number] Serial number: [id number] RA lead: Supervisor Cartography: [employer] Model number: [id number] Serial number: [id number] RV lead: Supervisor Cartography: [employer] Model number: [id number] Serial number: [id number] CS lead: Supervisor Cartography: [employer] Model number: [id number] Serial number: [id number] ICD PROGRAMMING: Bradycardia Parameters: Mode: DDD Lower rate limit: 50 Upper rate limit: 130 Output (A): 3.5 V at 0.4 ms Sensitivity (A): 0.3 mV Output (RV): 3.5 V at 0.4 ms Sensitivity (RV): 0.3 mV Output (CS): 2.0 V at 0.4ms Tachycardia Parameters: VT zone: 177-200 Therapies: Monitor VF zone: >200 bpm Therapies: 35 J x 6 PACING PERCENTAGE: AP: <0.1% VETERINARY LIVESTOCK INSPECTOR: 98.3% EPISODES SINCE IMPLANT: none. TODAY'S TESTING [...] and Device check in one month at [facility] device clinic. I have reque sted our [...] MD Electrophysiology Fellow Division of Cardiovascular Medicine [facility] Pager [phone] signed by Lauro Jorgensen MD at 10/18/2017 [...] follow up. Lauro Jorgensen M.D. Director, Electrophysiology Veterinary Dentistredrawer [facility] [place] [address] Amarilis Castle MD - 10/17/2017 10:53 AM [...] hs. You should be cleared by your bicycle fitter prior to returning to driving. ? If [...] through the full body scanner at [facility], but only after 6 weeks post defibrillator [...] How to Contact us: Cardiology Division Office [phone] Cardiology Patient Phone Line EDUIN [address] [...] 1) EP study with VT induction 2) HIDE INSPECTOR AND SORTER-D Indication for the procedure: Ischemic cardiomyopathy with [...] MD Electrophysiology Fellow Division of Cardiovascular Medicine [facility] Pager [phone] ala Schofield PA-C - 10/16/2017 2:07 PM PST IP Cardiology Progress Note Date: 10/16/2017 Hospital Day: 6 Attending Treating Plant Operator: Khurram Bedoya MD Provider: LALA SCHOFIELD PA-C Primary Care Provider: Chato Matson MD Outpatient Treating Plant Operator: Dr Jamal Guerrero MD ID:Ron Mckeon is a 61 year old male with past medical history of CAD s/p anterior [place] 03/2017 with cardiogenic shock s/p PCI with ANY to LM/LAD and LCx with ECMO support, systo lic heart failure (EF 20-25%), ischemic cardiomyopathy, hypertension, Atrial flutter, prior tobacco use, recent JAVON thrombus on anticoagulation, Influenza A with septic shock (10/03) re quiring intubation and mechanical ventilation, HAP on treatment who was admitted in transfer from [place] on 10/11 for consideration of PCI vs [...] cannot appreciate murmur and sounds regular. J VETERINARY LIVESTOCK INSPECTOR not above clavicle at 90 degrees Gastrointestinal: [...] found for: FREET4, TSH, TPOAB, THYROGLOB, THYROGLOBAB, [id number] Lab Results Component Value Date A1C 5.9 [...] circumflex. One 3.0 x 18 mm Resolute [place] drug-eluting stent. Successful percutaneous coronary transluminal angiopla [...] uenza and underwent a coronary angiogram at [place] which revealed in stent re-stenosis of both LM into LAD and LCx stents, mild disease of RCA. Transferred to [facility] for further onel luation. CTS was consulted [...] II-III, Stage C. Etiology ischemic. TTE at [facility] showed EF 30-35%, mildly reduced RV function, [...] check with EP -- f/u with outpatient bicycle fitter 2-4 weeks # Paroxysmal Aflutter Noted Aflutter with RVR at admission in [place]; treated with amiodarone infusion. Now maintaining SR on oral amio. CHADS-VASC 3, HAS-BLED 3. Was previously on heparin infusion fo r NSTEMI but this has been stopped and AC was not started in anticipation of PCI. --rate control: carvedilol as above --rhythm control: continue amiodarone 200 mg daily for now, to be reassessed b y outpatient bicycle fitter --anticoagulation: holding warfarin for now given DAPT and h/o GIB. Discuss fu rther with outpatient bicycle fitter. May consider holding anticoagulation unless he demonstra janeth recurrent arrhythmia # Influenza type A - resolved # Community acquired pneumonia # Severe sepsis with shock, resolved Pt presented to [place] 10/03 found to be Flu A positive [...] sepsis management , fluid resuscitation. EGD at [place] on 10/05 showed gastritis, duodenitis, linear ulcerations [...] patient was interviewed and examined by attending bicycle fitter, Dr. Khurram Bedoya MD , who is in agreement with above described findings, assessment and plan. LALA SCHOFIELD PA-C Cardiovascular Medicine [facility] Pager [phone] I spent 36 minutes in coordination of care and exce-dj-xcxy with the patient and/or their surrogate in [...] current post-cath car e. JOHN AMAYA MD [address] [place] [address] Ruth Ann Aguilar PA-C - [...] circ and LAD. EPS v-stim with possible HIDE INSPECTOR AND SORTER-D tomorrow (QRS today is 152 atypical LB BB). See yesterdays attestation Sophie Darby MD Cardiovascular Medicine - Electrophysiology [facility] [place] at [facility] Arya Low MD - 10/15/2017 1:05 PM PSTCARDIOLOGY PRELIMINARY PROCEDURE NOTE Primary Care Provider: Chato Matson MD Referring Provider: Other Dictation Title Agent Staff: Tejal Modi M.D. Procedure(s): 1. Coronary angiography 2. Percutaneous coronary intervention 3. Left heart catheterization 4. Impella placement and removal 5. Moderate conscious sedation Indications: Unstable angina, planned LM intervention Access: 14-Ivorian RFA 6-Ivorian RFV 7-Ivorian LFA Post Procedure Access:No evidence of significant [...] Note Date: 10/15/2017 Hospital Day: 5 Attending Treating Plant Operator: Khurram Bedoya MD Provider: LALA SCHOFIELD PA-C Primary Care Provider: Chato Matson MD Outpatient Treating Plant Operator: Dr Jamal Guerrero MD ID:Ron Mckeon is a 61 year old male with past medical history of CAD s/p anterior [place] 03/2017 with cardiogenic shock s/p PCI with ANY to LM/LAD and LCx with ECMO support, systo lic heart failure (EF 20-25%), ischemic cardiomyopathy, hypertension, Atrial flutter, prior tobacco use, recent JAVON thrombus on anticoagulation, Influenza A with septic shock (10/03) re quiring intubation and mechanical ventilation, HAP on treatment who was admitted in transfer from [place] on 10/11 for consideration of PCI vs [...] cannot appreciate murmur and sounds regular. J VETERINARY LIVESTOCK INSPECTOR not above clavicle at 90 degrees Gastrointestinal: [...] found for: FREET4, TSH, TPOAB, THYROGLOB, THYROGLOBAB, [id number] Lab Results Component Value Date A1C 5.9 [...] uenza and underwent a coronary angiogram at [place] which revealed in stent re-stenosis of both LM into LAD and LCx stents, mild disease of RCA. Transferred to [facility] for further onel luation. CTS was consulted for consideration of CABG vs complex PCI. Due to nonviable myocardium archie wn on cardiac PET and resting NM perfusion study, he will proceed with PCI tomorrow with Imp tania support. -- to slab polisher today for PCI with impella support --ASA [...] II-III, Stage C. Etiology ischemic. TTE at [facility] showed EF 30-35%, mildly reduced RV function, [...] Noted Aflutter with RVR at admission in [place]; treated with amiodarone infusion. Now maintaining SR [...] sepsis with shock, resolved Pt presented to [place] 10/03 found to be Flu A positive [...] sepsis management , fluid resuscitation. EGD at [place] on 10/05 showed gastritis, duodenitis, linear ulcerations [...] patient was interviewed and examined by attending bicycle fitter, Dr. Khurram Bedoya MD , who is in agreement with above described findings, assessment and plan. LALA SCHOFIELD PA-C Cardiovascular Medicine [facility] Pager [phone] I spent 38 minutes in coordination of care and nrht-jm-jidg with the patient and/or their surrogate in which the following was discussed: plan for PCI with impella support today, hea rt failure, anticoagulation for aflutter, discharge planning Associated attestation - Khurram Bedoya MD - 10/15/2017 1:15 PM PSTCardiology Attendi ng I have seen and examined Mr. Mckeon and discussed the [facility]. I reviewed the practitioner's note above and agree with the documented f indings and plan of care. KHURRAM BEDOYA MD Director of the [facility] Hypertrophic Cardiomyopathy Sustainability Officer of Echocardiography Cardio Techlimnologist Division of Cardiovascular Medicine Ruth Ann Carvajal [...] thickening is segmentally abnormal. 10/03/17: TTE @ [facility] Summary The number of aortic [...] remain. CARDIAC CATHETERIZATION: DATE OF PROCEDURE:10/03/17 @ [facility] CORONARY ANGIOGRAPHY DOMINANCE: Right LEFT [...] about Vf/VT risk in both short and fdc. Given NSVT and EF 30-35%, we will therefore proceed to an EP study with implantation o f an ICD if she has inducible VT. Given atypical LBBB QRS 147 and current functional status 3 (prior 1-2 by report) and concern for lack of EF recovery, we would plan for HIDE INSPECTOR AND SORTER with His- bundle lead if needed. Sophie Darby MD Cardiovascular Medicine - Electrophysiology [facility] [place] at [facility] Lala Schofield PA-C - 10/14/2017 11:58 AM PSTFormatting of this note might be different f rom the original. IP Cardiology Progress Note Date: 10/14/2017 Hospital Day: 4 Attending Treating Plant Operator: Khurram Bedoya MD Provider: LALA SCHOFIELD PA-C Primary Care Provider: Chato Matson MD Outpatient Treating Plant Operator: Dr Jamal Guerrero MD ID:Ron Mckeon is a 61 year old male with past medical history of CAD s/p anterior [place] 03/2017 with cardiogenic shock s/p PCI with ANY to LM/LAD and LCx with ECMO support, systo lic heart failure (EF 20-25%), ischemic cardiomyopathy, hypertension, Atrial flutter, prior tobacco use, recent JAVON thrombus on anticoagulation, Influenza A with septic shock (10/03) re quiring intubation and mechanical ventilation, HAP on treatment who was admitted in transfer from [place] on 10/11 for consideration of PCI vs [...] Very t hankful of care provided at [facility] Current Inpatient Medications: acetaminophen (TYLENOL) tablet 650 [...] found for: FREET4, TSH, TPOAB, THYROGLOB, THYROGLOBAB, [id number] Lab Results Component Value Date A1C 5.9 [...] uenza and underwent a coronary angiogram at [place] which revealed in stent re-stenosis of both LM into LAD and LCx stents, mild disease of RCA. Transferred to [facility] for further onel luation. CTS was consulted [...] II-III, Stage C. Etiology ischemic. TTE at [facility] showed EF 30-35%, mildly reduced RV function, [...] Noted Aflutter with RVR at admission in [place]; treated with amiodarone infusion. Now maintaining SR [...] sepsis with shock, resolved Pt presented to [place] 10/03 found to be Flu A positive [...] sepsis management , fluid resuscitation. EGD at [place] on 10/05 showed gastritis, duodenitis, linear ulcerations [...] patient was interviewed and examined by attending bicycle fitter, Dr. Khurram Bedoya MD , who is in agreement with above described findings, assessment and plan. LALA SCHOFIELD PA-C Cardiovascular Medicine [facility] Pager [phone] I spent 42 minutes in coordination of care and cqgu-ln-ffps with the patient and/or their s urrogate in which the following was discussed: results of nuc med and PET scan studies indic ating no viable myocardium and thus will plan for complex PCI tomorrow Associated attestation - Khurram Bedoya MD - 10/14/2017 9:29 PM PSTCardiology Attendi libby I have seen and examined Mr. Mckeon and discussed the patient's management [facility]. I reviewed the practitioner's note above and agree with the documented f indings and plan of care. KHURRAM BEDOYA MD Director of the [facility] Hypertrophic Cardiomyopathy Sustainability Officer of Echocardiography Cardio Techlimnologist Division of Cardiovascular Medicine Ashleigh Alvarez ACNP - 10/13/2017 8:33 AM PSTFormatting of this note might be diff erent from the original. Cardiology Inpatient Progress Note Date: 10/13/2017 Hospital Day: 3 Primary Care Physician: Chato Matson MD Outpatient Treating Plant Operator: Dr Jamal Guerrero MD Attending Treating Plant Operator: Khurram Bedoya MD Provider: KULWINDER Grace [...] who was admitted in transfe r from [place] on 10/11 for consideration of PCI vs [...] found for: FREET4, TSH, TPOAB, THYROGLOB, THYROGLOBAB, [id number] Lab Results Component Value Date A1C 5.9 [...] exam dated, 03/30/2017, the LVEF is similar. [facility] CXR 10/11/17: FINDINGS: The increased lung volumes. [...] flow to distal LAD 10/03/17 Echo at [place]: The number of aortic valve leaflets cannot [...] stents # NSTEMI Pt was admitted to [place] 10/03 with hypoxemic respiratory failure, severe sepsis and s hock thought to be due to influenza type A as below. Noted to have new LBBB, NSTEMI with pea k trop 26. Underwent coronary angiogram at [place] 10/04 which revealed in stent re-steno sis of both LM into LAD and LCx stents, mild disease of RCA. Transferred to [facility] for further evaluation. TTE showed LV function [...] for PCI (likely with Dr Modi with [facility] a support) which would require repeat bolus [...] II-III, Stage C. Etiology ischemic. TTE at [facility] showed EF 30-35%, mildly reduced RV function, mild dilation of ascending aorta. LVEDP 14 mm hg during catheterization 10/04 ( in setting of hypotension). Pt was diuresed at [place], appears euvolemic on exam. Pt wa s [...] Noted Aflutter with RVR at admission in [place], treated with amiodarone infusion, bertha alonzo SR [...] admitted with acute dyspnea, respiratory failure to [place] 10/03 found to be Flu A p [...] sepsis management , fluid resuscitation. EGD at [place] on 10/05 showed gastritis, duodenitis, linear ulcerations [...] patient was interviewed and examined by attending bicycle fitter, Dr. Khurram Bedoya MD , who is in agreement with above described findings, assessment and plan. KULWINDER Grace Instructor of Medicine [facility] [place] Pager [phone] I spent 33 minutes in coordination of care and fdlv-ec-dmsz with the patient and/or their s urrogate in which management of CAD, imaging plan and consultation with radiology, revascula rization treatment was discussed Associated attestation - Khurram Bedoya MD - 10/13/2017 2:48 PM PSTCardiology Attendi I have seen and examined Mr. Mckeon and discussed the patient's management with the [facility] practitioner. I reviewed the practitioner's note above and agree with the documented f indings and plan of care. KHURRAM BEDOYA MD Director of the [facility] Hypertrophic Cardiomyopathy Sustainability Officer of Echocardiography Cardio Techlimnologist Division of Cardiovascular Medicine Ashleigh Alvarez ACNP - 10/12/2017 8:02 AM PSTFormatting of this note might be diff erent from the original. Cardiology Inpatient Progress Note Date: 10/12/2017 Hospital Day: 2 Primary Care Physician: Chato Matson MD Outpatient Treating Plant Operator: Dr Jamal Guerrero MD Attending Treating Plant Operator: Khurram Bedoya MD Provider: KULWINDER Grace [...] who was admitted in transfe r from [place] on 10/11 for consideration of PCI vs [...] found for: FREET4, TSH, TPOAB, THYROGLOB, THYROGLOBAB, [id number] Lab Results Component Value Date A1C 5.6 [...] exam dated, 03/30/2017, the LVEF is similar. [facility] CXR 10/11/17: FINDINGS: The increased lung volumes. [...] flow to distal LAD 10/03/17 Echo at [place]: The number of aortic valve leaflets cannot [...] stents # NSTEMI Pt was admitted to [place] 10/03 with hypoxemic respiratory failure, severe sepsis and s hock thought to be due to influenza type A as below. Noted to have new LBBB, NSTEMI with pea k trop 26. Underwent coronary angiogram at [place] 10/04 which revealed in stent re-steno sis of both LM into LAD and LCx stents, mild disease of RCA. Transferred to [facility] for further evaluation. TTE shows LV function [...] II-III, Stage C. Etiology ischemic. TTE at [facility] showed EF 30-35%, mildly reduced RV function, mild dilation of ascending aorta. LVEDP 14 mm hg during catheterization 10/04 ( in setting of hypotension). He was diuresed at [place], appears euvolemic on exam today. Pt was [...] Aflutter with RVR prior to admission in [place], treated with amioda rima infusion, maintaining SR [...] admitted with acute dyspnea, respiratory failure to [place] 10/03 found to be Flu pos itive. [...] sepsis management , fluid resuscitation. EGD at [place] on 10/05 showed gastritis, duodenitis, linear ulcerations [...] patient was interviewed and examined by attending bicycle fitter, Dr. Khurram Bedoya MD , who is in agreement with above described findings, assessment and plan. Ashleigh Alvarez, [facility] Instructor of Medicine [facility] [place] Pager [phone] I spent 51 minutes in coordination of care and ybei-co-ysxu with the patient and/or their s urrogate in which management of CAD, imaging plan and consultation with radiology, pneumonia treatment was discussed Associated attestation - Khurram Bedoya MD - 10/12/2017 3:00 PM PSTCardiology Attendi I have seen and examined Mr. Mckeon and discussed the patient's management with the [facility] practitioner. I reviewed the practitioner's note above and agree with the documented f indings and plan of care. KHURRAM BEDOYA MD Director of the [facility] Hypertrophic Cardiomyopathy Sustainability Officer of Echocardiography Cardio Techlimnologist Division of Cardiovascular Medicine Cristi Sutton - 10/11/2017 12:15 PM PSTTransthoracic echocardiogram completed. Final report to follow. documented in this enc ounter Plan of Treatment + +---------+--------+ + + | Name | Type | Priori | Associated Diagnoses | Order Schedule | | | | ty | | | + +---------+--------+ + + | VETERINARY TECHNICIAN ASSISTANT INT | Imaging | Routin | | Tomorrow for 1 | | CORONARY ANGIOGRAM | | e | | Occurrences starting | | | | | | 10/15/2017 until | | | | | | 10/15/2017 | + +---------+--------+ + + | VETERINARY TECHNICIAN ASSISTANT EP ICD | Imaging | Routin | [...] | POC | | PST | infarction) ([facility]) | results section. | + +--------+ + + + | CAPILLARY BLOOD | Routin | 10/17/2017 | Non-ST elevation | Results for this | | GLUCOSE (NO CHG), | e | 7:38 AM | (NSTEMI) myocardial | procedure are in the | | POC | | PST | infarction ([facility]) | results section. | + +--------+ + [...] | | | | PST | infarction) ([facility]) | results section. | + +--------+ + [...] | POC | | PST | infarction ([facility]) | results section. | + +--------+ + [...] | + +--------+ + + + | VETERINARY TECHNICIAN ASSISTANT | Routin | 10/15/2017 | | Results [...] | POC | | PST | infarction ([facility]) | results section. | + +--------+ + [...] R[facility]GERS | [address] | [place], [place] | | | RICARDO POINT OF CARE | [address] | [address] | | | TESTS | | | [...] MARQUAM | [address] | [place], [place] | | | CHRISTIE SILVA [facility] | [address] | [address] | | | TESTS | | | [...] Note | + + | Service Account, Relux In Interface - 10/17/2017 7:51 AM PST [...] [facility] | [address] | [place] [address] | | | SERVICES, CORE | PARK [...] | | | LABORATORY | | | RUSSIAN | | | SERVICES, | | | [...] + + + + + | [facility] | [address] | [place] [address] | | | SERVICES, ИРИНА | JT [...] + | STUDY: SC CHEST 1 VIEW HISTORY: Evaluated lead placement. | [facility] | | COMPARISON: STUDY: SC CHEST 1 VIEW FINDINGS: A new | [...] Interface - 10/17/2017 7:51 AM PST STUDY: SC CHEST 1 | | VIEWHISTORY: Evaluated lead placement.COMPARISON: STUDY: SC CHEST 1 VIEWFINDINGS: A | | new [...] He | | | is candidate for HIDE INSPECTOR AND SORTER-D since he as class 2 baseline heart failure | | | and currently class 3 heart failure with LBBB 152 msec. | | | PROCEDURE ATTENDING: Sophie Darby MD | | | FELLOW: Amarilis Castle MD | | | PROCEDURAL DATA: Procedure: New implant Implanted | | | generator burlap worker: Medtronic Implanted leads burlap worker: | | | Medtronic Radha-procedure Anticoag: None Presenting rhythm: | | | NSR Existing device under advisory? No Pacemaker | | | dependent: No Method of sedation: Conscious sedation - Anesth | | | provider Response to sedation: Normal Fluoroscopy time (see | | | log): 45-47 minutes MEDICATIONS: See anesthesia log | | | and slab polisher log INTAKE AND OUTPUT: 1000 ml / [...] INFORMATION: BiV-ICD pulse generator: | | | Supervisor Cartography: Medtronic Model number: [id number] Serial | | | number: [id number] RA lead: Supervisor Cartography: Medtronic | | | Model number: [id number] Serial number: [id number] RV lead: | | | Supervisor Cartography: Medtronic Model number: [id number] Serial | | | number: [id number] CS lead: Supervisor Cartography: Medtronic | | | Model number: [id number] Serial number: [id number] MEASURED | | | PARAMETERS: RA lead: [...] Division of Cardiovascular Medicine | | | [facility] Pager [phone] Pursuant to | | | Federal Medicare requirements, I certify that I, Sophie Darby MD, | | | was present for the entire procedure, performed all critical | | | elements, and participated directly in the generation of this | | | report. Sophie Darby MD Cardiovascular Medicine - | | | Electrophysiology [facility] [place] at [facility] | | + + + PROCEDURE NOTE [...] See | | | anesthesia log and slab polisher log FLUIDS: In: 300 ml/ Out: 0 [...] HV interval (ms): 75 | | | SC interval (ms): 180 QRS duration (ms): 130 [...] Division | | | of Cardiovascular Medicine [facility] | | | Pager [phone] Pursuant to Federal Medicare requirements, I certify | | | that I, Sophie Darby MD, was present for the entire procedure, | | | performed all critical elements, and participated directly in the | | | generation of this report. Sophie Darby MD Cardiovascular | | | Medicine - Electrophysiology [facility] [place] at [facility] | | + + + VBG-FULL ABL, POC (10/16/2017 3:55 PM PST) + + + + + + | Component | Value | Ref Range | Performed | Pathologist | | | | | At | Signature | + + + + + + | PH VENOUS, | 7.32 (L) | 7.35 - 7.45 | [facility] - | | | POC | [...] + + + | EULOGIO [facility] | [address] | [place], [place] | | | JULIANN SILVA OF [facility] | [address] | [address] | | | TESTS | | | [...] R[facility] | [address] | [place], [place] | | | RICARDO POINT OF CARE | [address] | [address] | | | TESTS | | | [...] [facility] | [address] | [place] [address] | | | SERVICES, CORE | PARK [...] | | | LABORATORY | | | RUSSIAN | | | SERVICES, | | | [...] | + + + + + | [facility] | [address] | [place] [address] | | | ИРИНА ANTOINE | JT [...] [facility] | [address] | [place], [place] | | | JULIANN SILVA OF CARE | [address] | [address] | | | TESTS | | | [...] DEPT OF | [address] | [place], [place] | | | CARDIOLOGY | [address] | [address] | | + + + + + CARDIAC CATH (10/15/2017 2:11 PM PST) + + | Procedure Note | + + | Tejal Modi MD - 10/15/2017 2:11 PM PST DATE OF PROCEDURE:October 15, | | 2018PERFORMING PHYSICIAN:Tejal Modi [facility] ATTENDING:Mike Bray MDTheramy was no | | [...] 110 mL.FLUOROSCOPY TIME:17.8 minutes.FLUOROSCOPY | | DAP:7406.0 [id number]:1. Left ventricular pressure 91/23 mmHg.2. Aortic | | pressure 93/72 mmHg, mean of 80 mmHg. 3. Heart rate 71 beats per minute.ACCESS:1. | | 14-Ivorian Impella sheath in the right femoral artery.2. 7-Ivorian sheath in the left | | femoral artery.3. 6-Ivorian sheath in the right femoral vein.ESTIMATED BLOOD [...] | micropuncture technique and ultrasound guidance, a 5-Ivorian sheath was inserted in the | | right femoral artery and a 6-Ivorian sheath was inserted in the right femoral vein. Two | | Perclose devices were deployed in the preclosure method and then the 5-Ivorian sheath was | | exchanged over an Amplatz stiff wire for the 14-Ivorian Impella sheath. A 5-Ivorian | | angled pigtail catheter was then [...] technique and ultrasound guidance and placed a 7-Ivorian sheath. A 7-Ivorian XB 3.5 guide | | catheter was [...] and a 3.0 x 18 mm Resolute [place] drug-eluting stent was advanced over the | [...] and pulled out of the body. The 14-Ivorian sheath was | | then removed and [...] with one 3.0 x 18 mm Resolute [place] drug-eluting stent. Successful | | percutaneous coronary [...] | | 10/15/2017 13:25:02DT: 10/15/2017 14:11:10Job #: [id number] | |2. Lesion type: C. | |3. [...] |BCN/MODL | | | | | | /[id number] | + + ACT, POC-CCL ONLY (10/15/2017 [...] [facility] | [address] | [place], [place] | | | JULIANN SILVA OF CARE | [address] | [address] | | | TESTS | | | [...] ANA MARIA | [address] | [place], [place] | | | JULIANN SILVA OF [facility] | [facility] | [address] | | | TESTS | | | [...] [facility] | [address] | [place], [place] | | | RICARDO POINT OF CARE | [address] | [address] | | | TESTS | | | | + + + + + VETERINARY TECHNICIAN ASSISTANT EMERGENT/IMMEDIATE PROCEDURE (10/15/2017 11:00 AM PST) + + | Specimen | + + | | + + + + + | Narrative | Performed At | + + + | Procedure | | | performed in the Cardiac Title Agent. See procedure notes for details. | | [...] R[facility] | [address] | [place], [place] | | | RICARDO POINT OF CARE | [facility] | [address] | | | TESTS | | | [...] [facility] | [address] | [place] [address] | | | SERVICES, CORE | PARK [...] | | | LABORATORY | | | RUSSIAN | | | SERVICES, | | | [...] + + + + + | [facility] | [address] | [place] [address] | | | SERVICES, CORE | PARK [...] + + + + + | [facility] | [address] | [place] [address] | | | ИРИНА ANTOINE | JT [...] + + + | EULOGIO [facility] | [address] | [place], [place] | | | RICARDO POINT OF CARE | [address] | [address] | | | TESTS | | | [...] | | | LABORATORY | | | RUSSIAN | | | SERVICES, | | | [...] + + + + + | [facility] | [address] [facility] | [place] [address] | | | SERVICES, CORE | PARK [...] [facility] | [address] | [place] [address] | | | ИРИНА ANTOINE | JT [...] [facility] | [address] | [place], [place] | | | JULIANN SILVA OF [facility] | [address] | [address] | | | TESTS | | | [...] IMPRESSION: No significant tracer uptake within the nca-uf-kxtqbp | | | anterior wall/interventricular septum and [...] significant tracer | | uptake within the dhz-jq-hjextm anterior wall/interventricular septum and apex | | corresponding to same non-perfused areas seen on myocardial rest perfusion scan, | | compatible with nonviable myocardium in these regions. I have personally reviewed the | | images and, if necessary, edited the report. I agree with the report as now presented. | |No significant tracer uptake within the tlk-tf-jmzrik anterior wall/interventricular septum and apex corresponding to [...] [facility] | [address] | [place], [place] | | | JULIANN SILVA OF CARE | [address] | [address] | | | TESTS | | | [...] R[facility]GERS | [address] | [place], [place] | | | JULIANN SILVA OF CARE | [address] | [address] | | | TESTS | | | [...] MAR[facility] | [address] | [place], [place] | | | JULIANN SILVA OF CARE | [address] | [address] | | | TESTS | | | [...] MAR[facility] | [address] | [place], [place] | | | JULIANN SILVA OF CARE | [facility] | [address] | | | TESTS | | | [...] R[facility]GERS | [address] | [place], [place] | | | JULIANN SILVA OF CARE | [address] | [address] | | | TESTS | | | [...] BLUAM | [address] | [place], [place] | | | RICARDO POINT OF CARE | [address] | [address] | | | TESTS | | | [...] [facility] | [address] | [place], [place] | | | JULIANN SILVA OF CARE | [address] | [address] | | | TESTS | | | [...] R[facility]GERS | [address] | [place], [place] | | | JULIANN SILVA OF CARE | [address] | [address] | | | TESTS | | | [...] BLUAM | [address] | [place], [place] | | | JULIANN SILVA OF CARE | [address] | [address] | | | TESTS | | | [...] - [facility] | [address] | [place], [place] | | | JULIANN SILVA OF CARE | [address] | [address] | | | TESTS | | | [...] R[facility]GERS | [address] | [place], [place] | | | JULIANN SILVA OF [facility] | [address] | [address] | | | TESTS | | | | + + + + + NM MYOCARDIAL PERFUSION (SPECT) SINGLE AT REST OR STRESS (10/13/2017 11:18 AM PST) + + | Specimen | + + | | + + + + + | Narrative | Performed At | + + + | EXAM: Regadenoson Sestamibi SPECT Myocardial Perfusion Study | [facility] | | 10/13/17 09:54:20 HISTORY: Myocardial infarction [...] high risk. Study interpreted with Dr. Will nAn | | | of cardiology. I have [...] R[facility] | [address] | [place], [place] | | | RICARDO POINT OF CARE | [address] | [address] | | | TESTS | | | [...] [facility] | [address] | [place] [address] | | | SERVICES, CORE | PARK [...] | | | LABORATORY | | | RUSSIAN | | | SERVICES, | | | [...] | + + + + + | [facility] | [address] | [place] [address] | | | ИРИНА ANTOINE | JT [...] (H) | 70 - 99 mg/dL | [facility] - | | | GLUCOSE, [...] R[facility]GERS | [address] | [place], [place] | | | JULIANN SILVA OF CARE | [address] | [address] | | | TESTS | | | [...] + + + + + | [facility] | [address] [facility] | [place] [address] | | | SERVICES, CORE | JT [...] R[facility]GERS | [address] | [place], [place] | | | JULIANN SILVA OF ALEXIS | [facility] | [address] | | | TESTS | | | | + + + + + MR CARDIAC COMPREHENSIVE W/O CONTRAST (10/12/2017 12:38 PM PST) + + | Specimen | + + | | + + + + + | Narrative | Performed At | + + + | Report ====== New Car Salesperson: Rodríguez Fortune ([id number])shubham | EULOGIO | | richy Pure Culture Operator: shubham lockhart Fellow: shubham lockhart | RADIOLOGY | | Meat Butcher: shubham lockhart Viewer: shubham lockhart Report Date: | CARDIAC IMAGING | | Oct 2017, 09:22:25 PST Patient ------- Patient: RON MCKEON | | | Acc #: [id number] | | | Ethnicity: N Status: Final [...] | | | Image Quality: Good Scanner Supervisor Cartography: Key Travel Scanner | | | Model: Study2gether Scanner Serial Number: [id number] Scanner Software | | | Platform: 5.3.15.3.1.0 Staff: Rodríguez Fortune Modality: MR | | | Indication Name: routine Protocol Name: CMR W Flows WO Contrast | | | Findings -------- Non-cardiac findings were reviewed by Dr. Curtis. | | | This exam was terminated prematurely and is lmiited to telegraph service clerk images. | | | There are bilateral [...] - 10/16/2017 9:22 AM PST | | Report======New Car Salesperson: Rodríguez Fortune ([phone]), shubham Rodrigeuzalyst: shubham | | Lorena: shubham Garciaechnician: shubham Beckwithwer: shubham | | Rosey Date: 16 Oct 2017, 09:22:25 PSTPatient-------Patient: RON MCKEON | | JMedical Record Number: [id number] ID: [id number] #: [id number]: NStatus: | | Final ReportReport Number: [id number]: MaleBirthdate: 1955 (61 yrs)Study Date: 05 | | Oct 2017Study Description: CMR with Flows with ContrastReferring Physician: KHURRAM | | ANASTACIAITSAULOBlood Pressure: /Heart rate:Height (cm): 0Weight (kg): 89BMI (kg/m ): 0BSA | | (m ): 0 (Mosteller Formula)Image Quality: Jazmincansaulo Supervisor Cartography: ideaForge | | Lazarus EffectScanner Model: TOOVIAcanTasqe Serial Number: [id number] Software Platform: | | 5.3.15.3.1.0Staff: Rodríguez FortuneModality: MRIndication Name: routineProtocol Name: | | CMR W Flows WO ContrastFindings--------Non-cardiac findings were reviewed by | | Ever.This exam was terminated prematurely and is lmiited to telegraph service clerk images.There are | | bilateral pleural effusions. [...] Formula) | |Image Quality: Good | |Scanner Supervisor Cartography: Key Travel | |Scanner Model: Study2gether | |Scanner Serial Number: [id number] | |Scanner Software Platform: 5.3.15.3.1.0 | |Staff: Rodríguez Fortune | |Modality: MR | |Indication Name: routine | |Protocol Name: CMR W Flows WO Contrast | |Findings | |-------- | |Non-cardiac findings were reviewed by Dr. Curtis. | |This exam was terminated prematurely and is lmiited to telegraph service clerk images. | |There are bilateral pleural effusions. [...] MARIA | [address] | [place], [place] | | | JULIANN SILVA OF CARE | [address] | [address] | | | TESTS | | | [...] LABORATORY | [address] | [place] [address] | | | SERVICES, CORE | JT [...] [facility] | [address] | [place] [address] | | | ИРИНА ANTOINE | JT [...] | | | LABORATORY | | | RUSSIAN | | | SERVICES, | | | [...] | + + + + + | [facility] | [address] [facility] | [place] [address] | | | ARASH, ИРИНА | JT [...] EULOGIO CALABRESE | [address] | [place] [address] | | | SERVICES, ИРИНА | JT [...] [facility] | [address] | [place], [place] | | | RICARDO POINT OF CARE | [address] | [address] | | | TESTS | | | [...] EULOGIO [facility] | [address] | [place], [place] | | | RICARDO ELFIN COVE OF [facility] | [address] | [address] | | | TESTS | | | [...] EULOGIO on: 10/12/2017 8:10:02 AM PST by: [id number] | | + + + + + + + + | Performing | Address | City/State/Zipcode | Phone Number | | Organization | | | | + + + + + | [facility] | [address] | [place] [address] | | | [place] | | | | + + + [...] + + + + + | [facility] | [address] | [place] [address] | | | ИРИНА ANTOINE | JT [...] [facility] | [address] | [place] [address] | | | SERVICES, CORE | PARK [...] [facility] | [address] | [place] [address] | | | SERVICES, ИРИНА | JT [...] | [facility] | | considered for monitoring 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 teacher glycemic control in patients with: | LABORATORY [...] | fructosamine should be considered for monitoring fdc glycemic | | | control in patients [...] | + + + + + | [facility] | [address] [facility] | [place] [address] | | | SERVICES, SPECIAL | JT [...] Performed At | + + + | [facility] | [facility] DEPT OF | | [facility] | CARDIOLOGY | | Laboratory [address] [place] [address], | | | [place] [address] Pt Name: | | | RON MCKEON Study Date/Time 10/11/2017 / 11:47:35 | | | AMMRN: [id number] Most recent | | | prior: 03/30/2017Acc #: [id number] No. | | | previous echos: 4DOB: 1955 61 years Heart | | | Rate: 84 bpmHeight: 69.0 in | | | Blood Pressure: 115/68 mm/HgWeight: 196.0 | | | lb Gender: | | | MBSA: 2.05 m2 Order | | | ID: [id number] Copy Center Operator: Shahab Sutton [facility] | | | Referring Provider: Kimmy LowPatient [...] | | | presents on transfer from [place] for consideration of complex PCI | | [...] | | Ao (prox) 3.70 cm 18.1 mm/v7Vozhueenqt of | | | chamber size and geometry is accomplished through the incorporation of | | | linear, volumetric, and indexed values Wall Scoring: Report | | | electronically signed by: [id number] Khurram Bedoya MD (10/11/2017, | | | 12:59:49 PM) Final (Updated) | | | Final (Updated) | | + + + + + | Procedure Note | + + | Interface, Cardiology Results - 10/11/2017 1:00 PM [facility] | | [facility] [address] [place] [address] | | [place], [place] [address] Pt Name: RON Chaudhary | | MIKE Study Date/Time 10/11/2017 / 11:47:35 AMMRN: [id number] Most | | recent prior: 03/30/2017Acc #: [id number] No. previous echos: 4DOB: | | 1955 61 years Heart Rate: 84 bpmHeight: 69.0 in Blood | | Pressure: 115/68 mm/HgWeight: 196.0 lb Gender: MBSA: | | 2.05 m2 Order ID: [id number] Copy Center Operator: Shahab Sutton RDReferring | | Provider: Kimmy [...] use disorder who presents on transfer from [place] | | for consideration of complex PCI [...] Ao (prox) | | 3.70 cm 18.1 mm/r9Bzxkttvdfp of chamber size and geometry is accomplished | | through the incorporation of linear, volumetric, and indexed values Wall Scoring: Report | | electronically signed by: [id number] Khurram Bedoya MD (10/11/2017, 12:59:49 PM) | [...] | | | |Report electronically signed by: [id number] Khurram Bedoya MD (10/11/2017, 12:59:49 | |PM) | | | | | | | | Final (Updated) | + + + + + + + | Performing | Address | City/State/Zipcode | Phone Number | | Organization | | | | + + + + + | [facility] | [address] | [place], [place] | | | CARDIOLOGY | [address] | [address] | | + + + + + X-RAY PORTABLE CHEST 1 VIEW (10/11/2017 11:24 AM PST) + + | Specimen | + + | | + + + + + | Narrative | Performed At | + + + | STUDY: SC CHEST 1 VIEW COMPARISON: 03/21/17. HISTORY: Cough. [...] Note | + + | Service Account, [employer] Res In Interface - 10/11/2017 1:51 PM PST STUDY: SC CHEST 1 | | VIEW COMPARISON: 03/21/17.HISTORY: [...] E[facility] LABORATORY | [address] | [place] [address] | | | SERVICES, CORE | PARK [...] + + + + + | [facility] | [address] | [place] [address] | | | ИРИНА ANTOINE | JT [...] | | | LABORATORY | | | RUSSIAN | | | SERVICES, | | | [...] + + + + + | [facility] | [address] | [place] [address] | | | SERVICES, ИРИНА | JT [...] [facility] | [address] | [place] [address] | | | SERVICES, CORE | PARK [...] [facility] | [address] | [place] [address] | | | ИРИНА ANTOINE | JT [...] | + + + + + | [facility] | [address] [facility] | [place] [address] | | | SERVICES, CORE | PARK [...] [facility] | [address] | [place] [address] | | | SERVICES, CORE | JT [...] DEPT OF | [address] | [place], [place] | | | CARDIOLOGY | [address] | [address] | | + + + + + [...] disease involving enterprise coronary artery of enterprise heart, angina | | presence unspecified | [...] of unspecified type of vessel, | | enterprise or graft | + + | Paroxysmal atrial flutter (HCC) Atrial flutter | + + | Chronic systolic congestive heart failure (HCC) Chronic systolic heart failure | + + | Encounter for insertion of cardiac resynchronization therapy defibrillator (HIDE INSPECTOR AND SORTER-D) | + + | Influenza, pneumonia Influenza [...] PST | | | | | Until [facility] 10/15/17 at 1220 | | | [...]
--- OUTSIDE RECORDS SUMMARY | ~2019-02-08 | XMS | Encounter Summary ---
Demographics + + + | Address | [address] | | | [place] [address] | + + + | Home Phone | | + + + | Preferred Language | Unknown | + + + | Marital Status | | + + + | Denominational Affiliation | NRP | + + + | Race | White | + + + | Ethnic Group | Not or | + + + Author + + + | Author | [facility] | + + + | Organization | [facility] | + + + | Address | Unknown | + + + | Phone | Unavailable | + + + Support + + + + + | Name | Relationship | Address | Phone | + + + + + | Venice Will | ECON | [address] | | | | | [place] [address] | | + + + + + Care Team Providers + +------+ + | Care Ranch Helper Name | Role | Phone | [...] | | 2018 | | Services at [facility] [place] | [place], [place] | Exam | | | | [address] [facility] | [address] | | | | | [facility] | | | | | | Mailcode: L340 | | | | | | [facility] | | | | | | [place], [place] | | | | | | [address] | | | | | | [phone] | | | +--------+ + + + [...] of this encounter Plan of Treatment + +---------+--------+ + + | Name | Type | Priori | Associated Diagnoses | Order Schedule | | | | ty | | | + +---------+--------+ + + | RADIOLOGY CALL BACK | Imaging | Routin | Encounter for | Expected: 10/14/2017 | | | | e | imaging to assess | (Approximate), | | | | | myocardial viability | Expires: 11/10/2018 | + +---------+--------+ + + documented as of this encounter Visit Diagnoses + + | Diagnosis | + + | Encounter for imaging to assess myocardial viability - Primary Radiological | | examination, not elsewhere classified | + + documented in this encounter"
--- OUTSIDE RECORDS SUMMARY | ~2019-02-08 | XMS | Encounter Summary ---
Demographics + + + | Address | [address] | | | [place] [address] | + + + | Home Phone [...] [place] | | | | | [address] | | + + + + + Care Team Providers + +------+ + | Care Plans Examiner Name | Role | Phone | + +------+ + | Young Haque DO | PCP | | + +------+ + Encounter Details +--------+ + + + + | Date | Type | Department | Care Team | Description | +--------+ + + + + | 03/28/ | Abstract | [facility] [place] | Jenny, | | | 2019 | | CARDIOLOGY [address] | Hansa ASSEMBLY LINE LEADER [address] | | | | | [place], | [place], | | | | | [place] [address] | [place] [address] | | | | | [phone] | | | | | | | [...] | | | | [address] , [facility] | | | | | | [address] | | | | | | [address] | | | | | | | | +--------+ + + + + | 03/24/ | Procedure | Cardiology | | | | 2018 | visit | | | | +--------+ + + + + | 03/24/ | Office | Cardiology | Jenny, | | | 2018 | Visit | | ADARSH Santo [address] | | | | | | [place], | | | | | | [place] [address] | | | | | | [phone] | | | | | | | [...]
--- OUTSIDE RECORDS SUMMARY | ~2019-02-08 | XMS | Encounter Summary ---
Demographics + + + | Address | [address] | | | [place] [address] | + + + | Home Phone [...] [place] | | | | | [address] | | + + + + + Care Team Providers + +------+ + | Care Instructor Creeler Name | Role | Phone | + [...] | [address] | [address], [place] | | | | | [place], [place] | [address] [place], [place] | | | | | [address] | [address] | | | | | [phone] | | | +--------+ + + + [...] | | | | | [address] [facility] | | | | | | [address] | | | | | | [address] | | | | | | | | +--------+ + + + + | 03/24/ | Procedure | Cardiology | | | | 2018 | visit | | | | +--------+ + + + + | 03/24/ | Office | Cardiology | Jenny, | | | 2018 | Visit | | ADARSH Santo [address] | | | | | | [place], | | | | | | [place] [address] | | | | | | [phone] | | | | | | | [...]
--- OUTSIDE RECORDS SUMMARY | ~2019-02-08 | XMS | Encounter Summary ---
Demographics + + + | Address | [address] | | | [place] [address] | + + + | Home Phone | | + + + | Preferred Language | Unknown | + + + | Marital Status | | + + + | Christianity Affiliation | NRP | + + + | Race | White | + + + | Ethnic Group | Not or | + + + Author + + + | Author | [facility] | + + + | Organization | [facility] | + + + | Address | Unknown | + + + | Phone | Unavailable | + + + Support + + + + + | Name | Relationship | Address | Phone | + + + + + | Venice Will | ECON | [address] | | | | | [place] [address] | | + + + + + Care Team Providers + +------+ + | Care Bioinformatics Scientist Name | Role | Phone | [...] Rocha | | | | | | [facility] | | | | | | [place], [place] | | | | | | [address] | | | +--------+ + + + [...]
--- OUTSIDE RECORDS SUMMARY | ~2019-02-08 | XMS | Encounter Summary ---
Demographics + + + | Address | [address] | | | [place] [address] | + + + | Home Phone [...] [place] | | | | | [address] | | + + + + + Care Team Providers + +------+ + | Care Physician Industrial Name | Role | Phone | + [...] | [address] | [address], [place] | | | | | [place], [place] | [address] [place], [place] | | | | | [address] | [address] | | | | | [phone] | | | +--------+ + + + [...] | | | | | [address] [facility] | | | | | | [address] | | | | | | [address] | | | | | | | | +--------+ + + + + | 03/24/ | Procedure | Cardiology | | | | 2018 | visit | | | | +--------+ + + + + | 03/24/ | Office | Cardiology | Jenny, | | | 2018 | Visit | | ADARSH Santo [address] | | | | | | [place], | | | | | | [place] [address] | | | | | | [phone] | | | | | | | [...]
--- OUTSIDE RECORDS SUMMARY | ~2019-02-08 | XMS | Encounter Summary ---
Demographics + + + | Address | [address] | | | [place] [address] | + + + | Home Phone | | + + + | Preferred Language | Unknown | + + + | Marital Status | | + + + | Confucianism Affiliation | NRP | + + + | Race | White | + + + | Ethnic Group | Not or | + + + Author + + + | Author | [facility] | + + + | Organization | [facility] | + + + | Address | Unknown | + + + | Phone | Unavailable | + + + Support + + + + + | Name | Relationship | Address | Phone | + + + + + | [place] Will | ECON | [address] | | | | | [place] [address] | | + + + + + Care Team Providers + +------+ + | Care Operator Name | Role | Phone | [...] Rocha | | | | | | [facility] | | | | | | [place], [place] | | | | | | [address] | | | +--------+ + + + [...]
--- OUTSIDE RECORDS SUMMARY | ~2019-02-08 | XMS | Encounter Summary ---
Demographics + + + | Address | [address] | | | [place] [address] | + + + | Home Phone | | + + + | Preferred Language | Unknown | + + + | Marital Status | | + + + | Scientology Affiliation | NRP | + + + [...] | | | | | [place] [address] | | + + + + + Care Team Providers + +------+ + | Care Factory Clerk Name | Role | Phone | [...] | | 2011 | | Center at [facility] [address] | [address] | | | | | [address] | [place], [place] | | | | | Mailcode: CH8N | [address] | | | | | [facility] | [phone] | | | | | and Healing, 8th | | | | | | Floor [place], [place] | | | | | | [address] | | | | | | [phone] | | | +--------+ + + + [...]
--- OUTSIDE RECORDS SUMMARY | ~2019-02-08 | XMS | Encounter Summary ---
Demographics + + + | Address | [address] | | | [place] [address] | + + + | Home Phone | | + + + | Preferred Language | Unknown | + + + | Marital Status | | + + + | Jew Affiliation | NRP | + + + | Race | White | + + + | Ethnic Group | Not or | + + + Author + + + | Author | [facility] | + + + | Organization | [facility] | + + + | Address | Unknown | + + + | Phone | Unavailable | + + + Support + + + + + | Name | Relationship | Address | Phone | + + + + + | [place] Will | ECON | [address] | | | | | [place] [address] | | + + + + + Care Team Providers + +------+ + | Care Finance Specialist Name | Role | Phone | + +------+ + | Chato Matson MD | PCP | | + +------+ + Encounter Details +--------+ + + + + | Date | Type | Department | Care Team | Description | +--------+ + + + + | 10/11/ | Procedure | Diagnostic Imaging | | | | 2018 | Pass | Services at [facility] | | | | | | [address] | | | | | [facility] | | | | | | Mailcode: L340 | | | | | | [place] | | | | | | [place], [place] | | | | | | [address] | | | | | | [phone] | | | +--------+ + + + [...]
--- OUTSIDE RECORDS SUMMARY | ~2019-02-08 | XMS | Encounter Summary ---
Demographics + + + | Address | [address] | | | [place] [address] | + + + | Home Phone | | + + + | Preferred Language | Unknown | + + + | Marital Status | | + + + | Confucianist Affiliation | NRP | + + + | Race | White | + + + | Ethnic Group | Not or | + + + Author + + + | Author | [facility] | + + + | Organization | [facility] | + + + | Address | Unknown | + + + | Phone | Unavailable | + + + Support + + + + + | Name | Relationship | Address | Phone | + + + + + | [place] Will | ECON | [address] | | | | | [place] [address] | | + + + + + Care Team Providers + +------+ + | Care O And M Supervisor Name | Role | Phone | [...] Rocha | | | | | | [facility] | | | | | | [place], [place] | | | | | | [address] | | | +--------+ + + + [...]
--- OUTSIDE RECORDS SUMMARY | ~2019-02-08 | XMS | Encounter Summary ---
Demographics + + + | Address | [address] | | | [place] [address] | + + + | Home Phone [...] | Author | [facility] | | | and [place] | + + + | Organization | [facility] | | | and [place] | + + + | Address | Unknown | + + + | Phone | Unavailable | + + + Support + + + + + | Name | Relationship | Address | Phone | + + + + + | [place] Will | ECON | [place] | | | | | [address] | | + + + + + Care Team Providers + +------+ + | Care Learning Disabilities Resource Teacher Name | Role | Phone | [...] | | | involving | [address] [place] | | | | | [place] | [place], [place] | [place], [place] | | | | | coronary | [address] | [address] | | | | | artery of | Phone: | Phone: | | | | | [place] heart | [phone] | [phone] | | | | | without | Fax: | Fax: | | | | | angina | [phone] | [phone] | | | | | pectoris | | | + + + + + + + Encounter Details +--------+---------+ + + + | Date | Type | Department | Care Team | Description | +--------+---------+ + + + | 11/18/ | Office | [facility] | Randy Figueroa, | Coronary artery | | 2019 | Visit | MED CTR CARD[facility]AC | [address] | disease involving | | | | REHABILITATION [address] | [address], | [place] coronary | | | | [address] [place] | [place] [address] | artery of mi[place]ma[place] | | | | [place] [address] | [phone] | heart without angina | | | | [phone] | | pectoris (Primary | | | [...] might be different from the orig inayocasta. [facility] CARDIAC REHABILITATION [address] [facility] [address] Cardiac Rehab Date: 11/18/2018 Patient Information Patient [...] 03/08/ | Office | Nephrology | [facility] | | [facility] | Visit | | ADARSH [address] | | | | | | [address] [facility] | | | | | | [address] | | | | | | [address] | | | | | | | [...] [place], | | | | | | [place] [address] | | | | | | [phone] | | | | | | | [...]
--- OUTSIDE RECORDS SUMMARY | ~2019-02-08 | XMS | Encounter Summary ---
Demographics + + + | Address | [address] | | | [place] [address] | + + + | Home Phone [...] [place] | | | | | [address] | | + + + + + Care Team Providers + +------+ + | Care Glue Wheel Operator Name | Role | Phone | [...] | [address] | [address], [place] | | | | | [place], [place] | [address] [place], [place] | | | | | [address] | [address] | | | | | [phone] | | | +--------+ + + + [...] | | | | | [address] [facility] | | | | | | [address] | | | | | | [address] | | | | | | | | +--------+ + + + + | 03/24/ | Procedure | Cardiology | | | | 2018 | visit | | | | +--------+ + + + + | 03/24/ | Office | Cardiology | Jenny, | | | 2018 | Visit | | ADARSH Santo [address] | | | | | | [place], | | | | | | [place] [address] | | | | | | [phone] | | | | | | | [...]
--- OUTSIDE RECORDS SUMMARY | ~2019-02-08 | XMS | Encounter Summary ---
Demographics + + + | Address | [address] | | | [place] [address] | + + + | Home Phone [...] [place] | | | | | [address] | | + + + + + Care Team Providers + +------+ + | Care Demand Generator Manager Name | Role | Phone | [...] + + | 11/18/ | Telephone | [facility] | Jenny, | Blood Pressure | | 2019 | | CARDIOLOGY [address] | [place], PHOTOGRAMMETRIST [address] | | | | | [place], | [place], | | | | | [place] [address] | [place] [address] | | | | | [phone] | [phone] | | | | | | | [...] [place] | | | | | | [address] | | | | | | | [...] | | | | | | [place] [address] | | | | | | [phone] | | | | | | | | +--------+ + + + + documented as of this encounter Visit Diagnoses Not on filedocumented in this encounter"
--- OUTSIDE RECORDS SUMMARY | ~2019-02-08 | XMS | Encounter Summary ---
Demographics + + + | Address | [address] | | | [place] [address] | + + + | Home Phone [...] | [place] | | | | | [address] | | + + + + + Care Team Providers + +------+ + | Care Leasing Director Name | Role | Phone | [...] | | | involving | [address] | [place] | | | | | [place] | [address] | [place] | | | | | coronary | [address] | [address] | | | | | artery of | Phone: | Phone: | | | | | [place] heart | [phone] | [phone] | | | | | without | Fax: | Fax: | | | | | angina | [phone] | [phone] | | | | | pectoris | | | + + + + + + + Encounter Details +--------+---------+ + + + | Date | Type | Department | Care Team | Description | +--------+---------+ + + + | 11/09/ | Office | [facility] | Randy Figueroa, | Coronary artery | | 2019 | Visit | MED CTR CARDIAC | MD [address] | disease involving | | | | REHABILITATION [address] | [address] [place], | [place] coronary | | | | [address] [place] | [place] [address] | artery of [place] | | | | [place] [address] | [phone] | heart without angina | | | | [phone] | | pectoris (Primary | | | [...] of this encounter Progress Jonah Coker-Cheri Kendrick, BRAKE MECHANIC - 11/09/2018 1000 PSTFormatting of this note might be diff erent from the original. [facility] CARDIAC REHABILITATION [address] [facility] [address] Cardiac Rehab Date: 11/09/2018 Patient Information Patient Name: Bob Will Date of : 1955 Age: 63 y.o. Encounter Diagnoses Code Name Primary? I25.10 Coronary artery disease involving [place] coronary artery of [place] heart without angina pectoris Yes Number of [...] | Office | Nephrology | [facility], | | | 2018 | Visit | | ADARSH [address] | | | | | | [address] [facility] | | | | | | [address] | | | | | | [address] | | | | | | | | +--------+ + + + + | 03/24/ | Procedure | Cardiology | | | 2018 | visit | | | | +--------+ + + + + | 03/24/ | Office | Cardiology | Jenny, | | | 2018 | Visit | | HansaADARSH weldon [address] | | | | | | [place], | | | | | | [place] [address] | | | | | | [phone] | | | | | | | | +--------+ + + + + documented as of this encounter Visit Diagnoses + + | Diagnosis | + + | Coronary artery disease involving [place] coronary artery of [place] heart without | | angina pectoris - Primary | + + documented in this encounter"
--- OUTSIDE RECORDS SUMMARY | ~2019-02-08 | XMS | Encounter Summary ---
Demographics + + + | Address | [address] | | | [place] [address] | + + + | Home Phone [...] [place] | | | | | [address] | | + + + + + Care Team Providers + +------+ + | Care Type Caster Name | Role | Phone | + [...] | | | | | | [place] [address] | | | | | | [phone] | | | +--------+ + + + [...] 03/08/ | Office | [facility]phrology | [facility] | | | [facility] | Visit | | ADARSH [address] | | | | | | [address] | | | | | | [address] | | | | | | [address] | | | | | | | [...] | | | | | | [place] [address] | | | | | | [phone] | | | | | | | | +--------+ + + + + documented as of this encounter Visit Diagnoses Not on filedocumented in this encounter"
--- OUTSIDE RECORDS SUMMARY | ~2019-02-08 | XMS | Clinical Summary ---
Demographics + + + | Address | [address] | | | [place] [address] | + + + | Home Phone [...] [place] | | | | | [address] | | + + + + + Care Team Providers + +------+ + | Care Supervisor Word Processing Name | Role | Phone | + [...] | | Activ | | (VITAMIN D-3) [address] | a week. | | | | [...] | | nasal spray | nasal spray Ventress 2 | | | | | | [...] e | | spray | aerosol spray Ventress | | | | | | | [...] | 11/12/2017 | + + + | UPTWISTER TENDER-D (AICD) Medtronic 10/16/17 [facility] [place]ner | 10/19/2017 | + + + + + | Overview: Formatting of this note might be different from the | | original. MODEL NAME MODEL# SERIAL# DATE IMPLANTED GENERATOR | | Medtronic [id number] 10/16/17 RV LEAD Medtronic [id number] 62 | | [id number] 10/16/17 A LEAD Medtronic [id number] 10/16/17 | | Coronary Sinus LEAD Medtronic [id number] 10/16/17 | | Indication: ischemic cardiomyopathy with reduced EF 30-35% Last | | Assessment & Plan: Medtronic AICD Placed in 10/2017 at [facility]. | | A:-Patient ventricular paced 100% this morning. No arrhythmias on | | telemetry.P:-No acute therapy. Continue current therapy. | | | | Last Assessment & Plan: Medtronic AICD Placed in 10/2017 at [facility]. | | | |A: | [...] + + + | Overview: S/P Medtronic UPTWISTER TENDER-D 10-16-17 Dr Darby, [facility] Scan | | 10/13/17 shows No Significant [...] + + | Coronary artery disease involving [place] coronary artery of | 04/06/2017 | | [place] heart without angina pectoris | | + [...] + + + | Acute anterior wall [place] | 04/03/2017 | + + + + [...] involving | | | | | | [place] coronary | | | | | | artery of [place] | | | | | | heart without angina | | | | | | pectoris (Primary | | | | | | Dx); Post PTCA | +--------+ + + + + | 12/07/ | Office | | Randy Figueroa, | Coronary artery | | 2018 | Visit | | MD | disease involving | | | | | | [place] coronary | | | | | | artery of [place] | | | | | | heart [...] | | | | | (Primary Dx); UPTWISTER TENDER-D | | | | | | (AICD) Medtronic | | | | | | 10/16/17 [facility] Wilner; | | | | | | Ischemic | | | | | | cardiomyopathy | +--------+ + + + + | 12/02/ | Office | | Randy Figueroa, | Coronary artery | | 2018 | Visit | | MD | disease involving | | | | | | [place] coronary | | | | | | artery of [place] | | | | | | heart [...] involving | | | | | | [place] coronary | | | | | | artery of [place] | | | | | | heart [...] involving | | | | | | [place] coronary | | | | | | artery of [place] | | | | | | heart [...] involving | | | | | | [place] coronary | | | | | | artery of [place] | | | | | | heart [...] involving | | | | | | [place] coronary | | | | | | artery of [place] | | | | | | heart [...] [place] | | | | | | [address] | | | | | | | [...] | | | | | | [place] [address] | | | | | | [phone] | | | | | | | [...] Generi | Left: | TERUMO LORIN | [id number] | 12/05/ | [id number] | | [id number]: Qty: 1 | c | Alex | - TERU | [id number] | 2018 | / | | on 05/19/2018 by The, | | | | 20 | | /[id number] | | Khurram Isabel MD | | | | | | 371 | + +--------+--------+ +--------+--------+--------+ | Lifts And Cranes Inspector-D MedtronicImplanted: | Implan | | MEDTRONIC - [...] N/A: | ISAACS | | 12/29/ | [id number] | | Eluting Coronary Stent System | | [place] | DIAGNOSTICS | | 2019 | 0- / | | Implanted: Qty: 1 on | | ry | - DAINA | | | | | 03/15/2017 by Monse Ross, | | | | | | /[id number] | | MD | | | | | | 61 | + +--------+--------+ +--------+--------+--------+ | Xience Alpine Everolimus | Stent | N/A: | ISAACS | | 11/03/ | [id number] | | Eluting Coronary Stent System | | [place] | DIAGNOSTICS | | 2019 | 0- / | | Implanted: Qty: 1 on | | ry | - DAINA | | | | | 03/15/2017 by Monse Ross, | | | | | | /[id number] | | MD | | | | | | 41 | + +--------+--------+ +--------+--------+--------+ | Kit Perclose Proglide 6fr - | | Right: | ISAACS | [id number] | | [id number]- | | [id number]: Qty: 1 | | Groin | VASCULAR - | [id number] | | 03 / / | | on 05/19/2018 by Missael, | | | ABVA | 89 | | | | Khurram Isabel MD | | | | | | | + +--------+--------+ +--------+--------+--------+ | Kit Perclose Proglide 6fr - | | Right: | ISAACS | [id number] | | 11980- | | [id number]: Qty: 1 | | Groin | VASCULAR - | [id number] | | 03 / / | | [...] | EXTERNAL LAB: BUN | Routin | 01/13/2019 | | Results [...] | EXTERNAL LAB: WILFRED | Routin | 01/13/2019 | | Results [...] | e | 23:59 PDT | Interrogation UPTWISTER TENDER-D | procedure are in the | | REMOTE | | | ([facility]) Medtronic | results section. | | [...] Lab: BUN (01/13/2019)Only the most recent of 4 results within the time period is i [...] Lab: Glucose (01/13/2019)Only the most recent of 4 results within the time period is included. [...] Lab: Calcium (01/13/2019)Only the most recent of 4 results within the time period is included. [...] Lab: Chloride (01/13/2019)Only the most recent of 4 results within the time period is included. [...] Lab: Potassium (01/13/2019)Only the most recent of 4 results within the time perio d is [...] Lab: Sodium (01/13/2019)Only the most recent of 4 results within the time period i s [...] Lab: eGFR (01/13/2019)Only the most recent of 4 results within the time period is included. [...] Lab: Creatinine (01/13/2019)Only the most recent of 4 results within the time maggy od is [...] remote PDF scanned into | | | [facility] for remote interrogation results. Data collected [...] | [employer] | MODA | [id number] | | [phone] | | Medica | | MEDICAID HMO | HEALTH | | 018-Pr | 1 | | id | | | MDCD | | esent | | | | | | [place]MO [place] | | | | | | + +--------+ +--------+ +---------+--------+ | VETERANS ADMIN | VETERA | [id number] | 07/24/ | | | Indemn | | | NS | | 2016-P | | | ity | | | ADMIN | | resent | | | | | | [place] | | | | | | | | [place] | | | | | | + +--------+ +--------+ +---------+--------+ | VETERANS ADMIN | VETERA | [id number] | 07/24/ | | | Leanna | | | NS | | 2017-P | | | hanane | | | ADMIN | | resent | | | | | | [place] | | | | | | | [...] | Self | [birth year] | | [address] | | | al/Fam | | 5 | [phone] | [place] | | | taiwo | | | 8 (Home) | [address] | + +--------+ +--------+ + + Advance Directives Patient has advance care planning documents, and code status on file. For more information, please contact:[facility] [address] + + + + + | Code [...]
--- OUTSIDE RECORDS SUMMARY | ~2019-02-08 | XMS | Encounter Summary ---
Demographics + + + | Address | [address] | | | [place] [address] | + + + | Home Phone [...] [place] | | | | | [address] | | + + + + + Care Team Providers + +------+ + | Care Certified Novell Administrator Name | Role | Phone | [...] | | | | | | [place] [address] | | | | | | [phone] | | | +--------+ + + + [...] | Office | [facility]phrology | [facility] | | | [facility] | Visit | | ADARSH [address] | | | | | | [address] [facility] | | | | | | [address] | | | | | | [address] | | | | | | | [...] | | | | | | [place] [address] | | | | | | [phone] | | | | | | | | +--------+ + + + + documented as of this encounter Visit Diagnoses Not on filedocumented in this encounter"
--- OUTSIDE RECORDS SUMMARY | ~2019-02-08 | XMS | Encounter Summary ---
Demographics + + + | Address | [address] | | | [place] [address] | + + + | Home Phone [...] [place] | | | | | [address] | | + + + + + Care Team Providers + +------+ + | Care Grit Removal Operator Name | Role | Phone | [...] | [address] | [address], [place] | (severe) (HCC) | | | | [place], [place] | [address] [place] | (Primary Dx); Anemia | | | | [address] | [address] | in chronic kidney | | | | [phone] | | disease, unspecified | | | [...] PDTLabs for upcoming nephrology appointment sent to: [facility] Everywhere 05/04/18 Binronically signed by Sharon Saldana [...] | | | | | | [address], [place] | | | | | | [address] [place] | | | | | | [address] | | | | | | | | +--------+ + + + + | 03/24/ | Procedure | Cardiology | | | | 2018 | visit | | | | +--------+ + + + + | 03/24/ | Office | Cardiology | Jenny, | | | 2018 | Visit | | ADARSH Santo [address] | | | | | | [address] [place], | | | | | | [place] [address] | | | | | | [phone] | | | | | | | [...] 03/01/2019, Expires: | | | | (severe) ([facility]) | 01/27/2020 | + +--------+ + + | Parathyroid Hormone, Intact | Routin | Chronic kidney | Expected: | | | e | disease, stage IV | 03/01/2019, Expires: | | | | (severe) ([facility]) | 01/27/2020 | + +--------+ + + | Protein/Creatinine Ratio, Urine | Routin | Chronic kidney | Expected: | | | e | disease, stage IV | 03/01/2019, Expires: | | | | (severe) ([facility]) | 01/27/2020 | + +--------+ + + | Iron Profile | Routin | Chronic kidney | Expected: | | | e | disease, stage IV | 03/01/2019, Expires: | | | | (severe) ([facility]) | 01/27/2020 | | | | Anemia in chronic | | | | | kidney disease, | | | | | unspecified CKD | | | | | stage | | + +--------+ + + documented as of this encounter Visit Diagnoses + + | Diagnosis | + + | Chronic kidney disease, stage IV (severe) ([facility]) - Primary Chronic kidney disease, | | Stage IV (severe) | + + | Anemia in chronic kidney disease, unspecified CKD stage | + + documented in this encounter"
--- OUTSIDE RECORDS SUMMARY | ~2019-02-08 | XMS | Clinical Summary ---
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 | | -secretions improving, cough strong [...] stayExtubated 03/22, started on | | [place] R2Nvamt infusion begun 03/22 for daily goal -1 [...] cath | | lab procedure at [facility]. Was shocked 17 times | [...] Pneumococcal | | | | | vaccination ( | 1 | | | | - PPSV23) | | | | + [...] | | | INC | | | [id number] | | Tejal Pettit MD | | | | | | X / | | | | | | | | /[address] | | | | | | | | [address] | + +------+--------+ +--------+--------+--------+ + + | [...] CROSS | | 16-Pre | 8 | [address] | | | | [place] | | sent | | [place], | | | | L | | | | [place] [address] | | + +--------+ +--------+ + +--------+ | MEDICAID [place] | OHP | [id number] | 03/07/20 | [phone] | [address] | Medica | | | PLUS | | 17-Pre | 6 | [id number] | id | | | OPEN | | sent | | [place], [place] | | | | CARD | | | | [address] | | + +--------+ +--------+ + +--------+ + +--------+ +--------+ + + | Guarantor Name | Accoun | Relation to | Date | Phone | Billing Address | | | t Type | Patient | of | | | | | | | | | | + +--------+ +--------+ + + | Suman,Bob J | Person | Self | [birth year] | [address] | | | al/Negro | | 1956 | [phone] | [address] [place] | | | [place] | | | 8 (Home) | [address] | + +--------+ +--------+ + + Advance [...]
--- OUTSIDE RECORDS SUMMARY | ~2019-02-08 | XMS | Encounter Summary ---
Demographics + + + | Address | [address] | | | [place] [address] | + + + | Home Phone [...] | | | | | [place] [address] | | + + + + + Care Team Providers + +------+ + | Care Solar Lab Technician Name | Role | Phone [...] [place] | | | | | | [facility] | | | | | | [place], [place] | | | | | | [address] | | | +--------+ + + + [...]
--- OUTSIDE RECORDS SUMMARY | ~2019-02-08 | XMS | Encounter Summary ---
Demographics + + + | Address | [address] | | | [place] [address] | + + + | Home Phone [...] [place] | | | | | [address] | | + + + + + Care Team Providers + +------+ + | Care Dust Sampler Name | Role | Phone | [...] + + | 11/18/ | Telephone | [facility] | Jenny, | Blood Pressure | | 2019 | | CARDIOLOGY [address] | [place], DIRECTOR [employer] [address] | | | | | [place], | [place], | | | | | [place] [address] | [place] [address] | | | | | [phone] | [phone] | | | | | | | [...] [place] | | | | | | [address] | | | | | | | [...] | | | | | | [place] [address] | | | | | | [phone] | | | | | | | | +--------+ + + + + documented as of this encounter Visit Diagnoses Not on filedocumented in this encounter"
--- OUTSIDE RECORDS SUMMARY | ~2019-02-08 | XMS | Clinical Summary ---
Demographics + + + | Address | [address] [place] [address] [address] | | | [place] [address] | + + + | Home Phone | | + + + | Preferred Language | Unknown | + + + | Marital Status | | + + + | Orthodox Affiliation | Unknown | + + + | Race | Unknown | + + + | Ethnic Group | Unknown | + + + Author + + + | Author | [employer] | + + + | Organization | [email or web address] [employer] | + + + | Address | Unknown | + + + | Phone | Unavailable | + + + Support + + +---------+ + | Name | Relationship | Address | Phone | + + +---------+ + | Venice Mckeon | ECON | Unknown | | + + +---------+ + Care Team Providers + +------+ + | Care Oncology Social Worker Name | Role | Phone | [...] + + | Father | | | [place] | | | | (Age | | [...] +------+-------+ + | MEDICAID | SAIMA | [id number] | | | [address] | | | N | | | | [place], [place] | | | [place] | | | | [address] | | | [employer]ATE | | | | | + +--------+ [...] | Self | [birth year] | Home: | [address] | | | al/Fam | | [phone] [address] [place], | | | [place] | | | [phone] | [place] [address] | + +--------+ +--------+ + +
--- OUTSIDE RECORDS SUMMARY | ~2019-02-08 | XMS | Encounter Summary ---
Demographics + + + | Address | [address] | | | [place] [address] | + + + | Home Phone [...] | | | | | [place] [address] | | + + + + + Care Team Providers + +------+ + | Care Zipper Ironer Name | Role | Phone | + +------+ + | Chato Matson MD | PCP | | + +------+ + Encounter Details +--------+ + + + + | Date | Type | Department | Care Team | Description | +--------+ + + + + | 10/11/ | Procedure | Diagnostic Imaging | | | | 2018 | Pass | Services at [facility] | | | | | | [address] | | | | | | [facility] | | | | | | Mailcode: [id number] | | | | | | [place] | | | | | | [place], [place] | | | | | | [address] | | | | | | [phone] | | | +--------+ + + + [...]
--- OUTSIDE RECORDS SUMMARY | ~2019-02-08 | XMS | Encounter Summary ---
Demographics + + + | Address | [address] | | | [place] [address] | + + + | Home Phone | | + + + | Preferred Language | Unknown | + + + | Marital Status | | + + + | Sabianism Affiliation | NRP | + + + [...] | | | | | [place] [address] | | + + + + + Care Team Providers + +------+ + | Care Mattress Inspector Name | Role | Phone | [...] | | | | | floor [address] [facility] | | | | | | [facility] | | | | | | [place], [place] | | | | | | [address] | | | +--------+ + + + [...]
--- OUTSIDE RECORDS SUMMARY | ~2019-02-08 | XMS | Encounter Summary ---
Demographics + + + | Address | [address] | | | [place] [address] | + + + | Home Phone | | + + + | Preferred Language | Unknown | + + + | Marital Status | | + + + | Voodoo Affiliation | Unknown | + + + | Race | Unknown | + + + | Ethnic Group | Unknown | + + + Author + + + | Author | [facility] | | | and [place] | + + + | Organization | [facility] | | | and [place] | + + + | Address | Unknown | + + + | Phone | Unavailable | + + + Support + + + + + | Name | Relationship | Address | Phone | + + + + + | Venice Will | ECON | [place] | | | | | [address] | | + + + + + Care Team Providers + +------+ + | Care Wood Cut Engraver Name | Role | Phone | + [...] | Cardiac | Diagnoses | Kacie, | [facility] | | | Services | Rehabilitatio | Coronary | Janel | | | | Required | n | artery | ADARSH Jacobs | Rehabilitatio | | | | | disease | [address] | [address] | | | | | involving | [address] | [place] | | | | | [place] | [place] | [place] | | | | | coronary | [address] | [address] | | | | | artery of | Phone: | Phone: | | | | | [place] [facility] | [phone] | [phone] | | | | | without | Fax: | Fax: | | | | | angina | [phone] | [phone] | | | | | pectoris | | | + + + + + + + Encounter Details +--------+---------+ + + + | Date | Type | Department | Care Team | Description | +--------+---------+ + + + | 11/23/ | Office | [facility] | Rahullindacathy Lindaangusleo, | Acute on chronic | | 2019 | Visit | [facility] CARDIAC | MD [address] | systolic congestive | | | | REHABILITATION [address] | [place], | heart failure (HCC) | | | | [place] | [place] [address] | (Primary Dx) | | | | [place] [address] | [phone] | | | | | [phone] | | | +--------+---------+ + + + [...] of this encounter Progress Jonah Coker-Cheri Kendrick, DEPUTY SHERIFF/INVESTIGATOR - 11/23/2018 1000 PDTFormatting of this note might be diff erent from the original. [facility] CARDIAC REHABILITATION [address] [facility] [address] Cardiac Rehab Date: 11/23/2018 Patient Information Patient [...] | 03/08/ | Office | Nephrology | [facility], | | | 2018 | Visit | | ADARSH Wesley [address] | | | | | | [address] , [facility] | | | | | | [address] [place] | | | | | | [id number] | | | | | | | | +--------+ + + + + | 03/24/ | Procedure | Cardiology | | | | 2018 | visit | | | | +--------+ + + + + | 03/24/ | Office | Cardiology | Jenny, | | | 2018 | Visit | | ADARSH Santo [address] | | | | | | [place], | | | | | | [place] [address] | | | | | | [phone] | | | | | | | | +--------+ + + + + documented as of this encounter Visit Diagnoses + + | Diagnosis | + + | Acute on chronic systolic congestive heart failure (HCC) - Primary Acute on chronic | | systolic heart failure | + + documented in this encounter"
--- OUTSIDE RECORDS SUMMARY | ~2019-02-08 | XMS | Encounter Summary ---
Demographics + + + | Address | [address] | | | [place] [address] | + + + | Home Phone [...] [place] | | | | | [address] | | + + + + + Care Team Providers + +------+ + | Care Services Executive Name | Role | Phone | + [...] | [address] | [address], [place] | (severe) (HCC) | | | | [place], [place] | 100 [place], [place] | (Primary Dx); Anemia | | | | [address] | [address] | in chronic kidney | | | | [phone] | | disease, unspecified | | | [...] PDTLabs for upcoming nephrology appointment sent to: [facility] Everywhere 05/04/18 Binronically signed by Sharon Saldana [...] | | | | | | [address], [place] | | | | | | [address] [place] | | | | | | [address] | | | | | | | | +--------+ + + + + | 03/24/ | Procedure | Cardiology | | | | 2018 | visit | | | | +--------+ + + + + | 03/24/ | Office | Cardiology | Jenny, | | | 2018 | Visit | | ADARSH Santo [address] | | | | | | [place], | | | | | | [place] [address] | | | | | | [phone] | | | | | | | [...] 03/01/2019, Expires: | | | | (severe) ([facility]) | 01/27/2020 | + +--------+ + + | Parathyroid Hormone, Intact | Routin | Chronic kidney | Expected: | | | e | disease, stage IV | 03/01/2019, Expires: | | | | (severe) ([facility]) | 01/27/2020 | + +--------+ + + | Protein/Creatinine Ratio, Urine | Routin | Chronic kidney | Expected: | | | e | disease, stage IV | 03/01/2019, Expires: | | | | (severe) ([facility]) | 01/27/2020 | + +--------+ + + | Iron Profile | Routin | Chronic kidney | Expected: | | | e | disease, stage IV | 03/01/2019, Expires: | | | | (severe) ([facility]) | 01/27/2020 | | | | Anemia in chronic | | | | | kidney disease, | | | | | unspecified CKD | | | | | stage | | + +--------+ + + documented as of this encounter Visit Diagnoses + + | Diagnosis | + + | Chronic kidney disease, stage IV (severe) ([facility]) - Primary Chronic kidney disease, | | Stage IV (severe) | + + | Anemia in chronic kidney disease, unspecified CKD stage | + + documented in this encounter"
--- OUTSIDE RECORDS SUMMARY | ~2019-02-08 | XMS | Encounter Summary ---
Demographics + + + | Address | [address] | | | [place] [address] | + + + | Home Phone [...] [place] | | | | | [address] | | + + + + + Care Team Providers + +------+ + | Care Tile Molder Hand Name | Role | Phone | + +------+ + | Young Haque DO | PCP | | + +------+ + Encounter Details +--------+ + + + + | Date | Type | Department | Care Team | Description | +--------+ + + + + | 03/19/ | Abstract | [facility] [place] | Jenny, | | | 2018 | | CARDIOLOGY [address] | [place] PSYCHOLOGIST RESEARCH ASSISTANT [address] | | | | | [place], | [place], | | | | | [place] [address] | [place] [address] | | | | | [phone] | [phone] | | | | | | | [...] | | | | [address] , [facility] | | | | | | [address] [place] | | | | | | [address] | | | | | | | | +--------+ + + + + | 03/24/ | Procedure | Cardiology | | | | 2018 | visit | | | | +--------+ + + + + | 03/24/ | Office | Cardiology | Jenny, | | | 2018 | Visit | | ADARSH Santo [address] | | | | | | [place], | | | | | | [place] [address] | | | | | | [phone] | | | | | | | [...]
--- OUTSIDE RECORDS SUMMARY | ~2019-02-08 | XMS | Encounter Summary ---
Demographics + + + | Address | [address] | | | [place] [address] | + + + | Home Phone [...] | | | | | [place] [address] | | + + + + + Care Team Providers + +------+ + | Care Brake Rider Name | Role | Phone | + +------+ + | Chato Matson MD | PCP | | + +------+ + Encounter Details +--------+ + + + + | Date | Type | Department | Care Team | Description | +--------+ + + + + | 03/31/ | Document-Sc | Health Information | Other, Faculty | | | 2017 | anned | Services [address] | [phone] | | | | | [address] | | | | | | Road Mailcode: | | | | | | [address] [place] [address] | | | | | | [facility] | | | | | | [place], [place] | | | | | | [address] | | | | | | [phone] | | | +--------+ + + + [...]
--- OUTSIDE RECORDS SUMMARY | ~2019-02-08 | XMS | Encounter Summary ---
Demographics + + + | Address | [address] | | | [place] [address] | + + + | Home Phone [...] [place] | | | | | [address] | | + + + + + Care Team Providers + +------+ + | Care Calibration Engineer Name | Role | Phone | [...] | | CARDIOLOGY [address] | [place], AERIAL HURRICANE HUNTER [address] | | | | | [place], | [place], | | | | | [place] [address] | [place] [address] | | | | | [phone] | [phone] | | | | | | | [...] | | | | | | [address], [place] | | | | | | [address] [place] | | | | | | [address] | | | | | | | [...] | | | | | | [place] [address] | | | | | | [phone] | | | | | | | | +--------+ + + + + documented as of this encounter Visit Diagnoses Not on filedocumented in this encounter"
--- OUTSIDE RECORDS SUMMARY | ~2019-02-08 | XMS | Encounter Summary ---
Demographics + + + | Address | [address] | | | [place] [address] | + + + | Home Phone [...] [place] | | | | | [address] | | + + + + + Care Team Providers + +------+ + | Care Manager Play Name | Role | Phone | + [...] Monitor | CARDIOLOGY [address] | [address] [place] [address] | Interrogation | | | | [place], | [place], | (Primary Dx); FENCE LAB[place] | | | | [place] [address] | [place] [address] | (AICD) [employer] | | | | [phone] | [phone] | 10/16/17 [facility]; | | | | | [...] [place] | | | | | | [address] | | | | | | | [...] | | | | | | [place] [address] | | | | | | [phone] | | | | | | | [...] | e | 23:59 PDT | Interrogation FENCE LABORER-D | procedure are in the | | REMOTE | | | ([facility]) [employer] | results section. | [...] remote PDF scanned into | | | [facility] for remote interrogation results. Data collected [...] + + | Performing | Address | City/State/[facility] | Phone Number | | Organization | | | | + +---------+ + + | [facility] | | | | + +---------+ + + documented in this encounter Visit Diagnoses + + | Diagnosis | + + | Remote Device Interrogation - Primary Fitting and adjustment of automatic implantable | | cardiac defibrillator | + + | FENCE LABORER-D (ZANED) [employer] 10/16/17 EULOGIO Darby | + + | Ischemic cardiomyopathy Other specified forms of chronic ischemic heart disease | + + documented in this encounter"
--- OUTSIDE RECORDS SUMMARY | ~2019-02-08 | XMS | Encounter Summary ---
Demographics + + + | Address | [address] | | | [place] [address] | + + + | Home Phone [...] | | | | | [place] [address] | | + + + + + Care Team Providers + +------+ + | Care Test Specialist Name | Role | Phone | [...] | | 2011 | | Center at [facility] [address] | [address] | | | | | [place] [address] | [place], [place] | | | | | Mailcode: [id number] | [address] | | | | | [facility] | [phone] | | | | | and Healing, [address] | | | | | | Floor [place], [place] | | | | | | [address] | | | | | | [phone] | | | +--------+ + + + [...]
--- OUTSIDE RECORDS SUMMARY | ~2019-02-08 | XMS | Encounter Summary ---
Demographics + + + | Address | [address] | | | [place] [address] | + + + | Home Phone [...] | Author | [facility] | + + + | Organization | [facility] | + + + | Address | Unknown | + + + | Phone | Unavailable | + + + Support + + + + + | Name | Relationship | Address | Phone | + + + + + | Venice Mckeon | ECON | [address] | | | | | [place] [address] | | + + + + + Care Team Providers + +------+ + | Care Psychiatric Specialist Name | Role | Phone | [...] | | | | | involving | [place], [place] | | | | | | left main | [address] | | | | | | coronary | Phone: | | | | | | artery (HCC) | [phone] | | | | | | Procedures | Fax: | | | | | | | [phone] | | | | | | OCCUPATIONAL [...] | | | | elevation | [address] [facility] | | | | | | myocardial | [address] | | | | | | infarction | Rd | | | | | | involving | [place], [place] | | | | | | left main | [address] | | | | | | coronary | Phone: | | | | | | artery (HCC) | [phone] | | | | | | Procedures | Fax: | | | | | | PHYSICAL | [phone] | | | | | | THERAPY [...] REHAB - [facility] | ANTHONY [address] | [address] | | | | | | [address] | [place], | | | | | | [place], [place] | [place] [address] | | | | | | [address] | Phone: | | | | | | Phone: | [phone] | | | | | | [phone] | Fax: | | | | | | Fax: | [phone] | | | | | | [phone] | | +--------+--------+ + + + + [...] | | | | | Ave | [place], | | | | | | CAMPUS, [place] | [place] [address] | | | | | | [address] | Phone: | | | | | | Phone: | [phone] | | | | | | [phone] | Fax: | | | | | | Fax: | [phone] | | | | | | [phone] | | +--------+--------+ + + + + [...] | | | 04/02/ | | HOSPITAL [place], | [place], [place] | | | 2016 | | [place] [address] | [address] | | | | | [phone] | [phone] | | | | | | | | | | | | Rolly Reeves, | | | | | | [address] | | | | | | [address] [place], [place] | | | | | | [address] | | | | | | [phone] | | | | | | | | | | | | Terry Ochoa MD | | | | | | [address] | | | | | | [place], [place] | | | | | | [address] | | | | | | [phone] | | | | | | | | | | | | Monika Cooper, | | | | | | Rehana Downey MD,MPH [address] | | | | | [address] | | | | | | Rd [place], [place] | | | | | | [address] | | | | | | [phone] | | | | | | | | | | | | Ariana Bose, | | | | | | DO [address] | | | | | | [address] | | | | | | [place], [place] | | | | | | [address] | | | | | | [phone] | | | | | | | | | | | | Aria Rojas MD | | | | | | [address] | | | | | | [place], | | | | | | [place] [address] | | | | | | [phone] | | | | | | | [...] 2:26 PM PDT CLINICAL HOSPITALIST DISCHARGE SUMMARY [facility] Discharging Provider: Aria Rojas MD Discharging [...] follow up ludmila miller with a local stage hand in [place]. #Acute cardiogenic shock in the setting ofSTEMI [...] 44 to 32 during first day at [facility] , with addition decline to 24 the [...] (noted on o utside records). Patient on Seaside 10/325 q8 as outpatient. Was receiving scheduled [...] then take 7.5 mg (one and one-h skilled nursing tablets) daily starting 04/03/2017 Indications: JAVON thrombus, [...] Fax Number [facility] Yes [address] [place] [address] Medina Roger RN 04/02/2017 11:31 Medina Roger RN, 04/02/2017 11:28 AM: Spoke with Latricia, 7 day auth # [id number] has been provided. Contacted Tanisha at facility [phone], arranging anticipated medicaid transport by stretcher at 2 pm today. Spoke with patient and souse concerning dc; they are both in agreement. Medina Roger, RN, 04/02/2017 9:20 AM: Contacted Latriciabettina Landry [phone] referencing auth# for SNF placement. Medina Roger RN, 04/01/2017 11:42 AM: Spoke with Malathi [phone], at facility admissions. Patient is accepted to facility. 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 F&MS working with patient and family to add Medicaid ser vices to benefits. When added patient will have travel benefit. CM contacted Shahab Holman re [employer] training. Tamia Van, RN, 03/30/2017 1:21 PM: Received VM from Emily Terrell CM with [facility] to send referral to this location . Referral made, awaiting response. Follow Up: Schedule the following appointment(s) when you get home Follow up with [facility] . Specialties: Snf Facility, Intermediate Care Facility Contact information [address] [place] [address] Follow up with LAUREN CHESTER MD. Go on 04/07/2017. Specialty: Cardiology Why: at 8:30 AM to establish Cardiology follow up Contact information [facility] [address] [address] Aria Rojas MD Division of Hospital Medicine [facility] I spent 60 minutes on discharge activities on the day of discharge, including counseling of the patient and his regarding his discharge plan and in coordination of care on the nv rd with nursing, pharmacy, and Heart Failure.Electronically [...] and chronic pain who was transferred to [facility] on 03/15 s/p STEMI with cardiogeni c [...] will need Life Vest follow up with stage hand in [place] on discharge - appr eciate cardiology assistance [...] hematoma, but possibly some candidal infection/intertrigo. On Seaside 10/325 Q8H as an outp atient. -Continue [...] 44 to 32 during first day at [facility], with addition decline to 24 th e [...] Division of Hospital Medicine [facility] Pager [phone] I spent 36 minutes on the patient [...] and chronic pain who was transferred to [facility] on 03/15 s/p STEMI with cardiogeni c [...] will need Life Vest follow up with stage hand in [place] on discharge - appr iate cardiology assistance [...] hematoma, but possibly some candidal infection/interrigo. On Seaside 10/ Q8H as an outpa tient. -Continue [...] discharge. -CM looking for skilled placement in [place] near patient's home; appreciate assistance At risk for malnutrition Very little PO intake but reportedly improving. Previously had dobhoff feeding tube in the CVICU.Nutrition assistance appreciated. -Calorie count ongoing -Encouraging PO intake Normocytic anemia Hct dropped abruptly from 44 to 32 during first day at [facility], with addition decline to 24 th e [...] hemoconcentration may also be playing a role. AYILN Cr elevated on admit to peak of [...] of Hospital Medicine [facility] Pager [phone] I spent 36 minutes on the patient encounter today, >50% in counseling of the patient's on the above plan of care and in coordination of care on the arizmendi with nursing and Heart Fa ilure. Ariana Ivy DO - 03/30/2017 5:49 PM PDT CLINICAL HOSPITALIST SERVICE PROGRESS NOTE PATIENT'S NAME/MRN: Ron Mckeon/[id number] HOSPITAL DAY: #15 24-HOUR EVENTS & SUBJECTIVE: -patient complained of typical anginal chest pain and had STEMI code last night, anterior S T elevation on serial EKGs, given 325mg ASA, started on heparin drip (had been turned off fo r JAVON thrombus yesterday afternoon with warfarin therapeutic), patient went to the stores laborer -on angiography, interventionalists noted "patent stent [...] 7.5 mg, 7.5 mg, oral, QPM, Ariana [place], OBJECTIVE: Last Vitals: BP 101/56 | Pulse [...] daily - Patient will follow up with stage hand in [place] on discharge; appreciate cardiolo adriana assistance with [...] stenosis (noted on o utside records, on Seaside q8 as outpatient) Improved today -continue oxycodone [...] 44 to 32 during first day at [facility] , with addition decline to 24 the [...] assistance Barriers for DC: delivery/approval of lifevest, [facility] bed Ariana Bose DO Embossing Calender Operatorbookkeeping assistant Clinical Hospitalist and Medicine Teaching Service Division of Hospital Medicine [facility] Pager [phone] [facility] DEPARTMENT: Hosp- [id number] Place of Service: Date of Service: 03/26/2017 CSN: [id number] Modifiers:GC Resident Involved: Yes Suggested CPT: 96355 Subsequent Visit Detailed/High complexity 35 min Cristi [...] patient's significant recent [place], we activated the stores laborer. Patient received 325 mg ASA at bedside and was briefly on heparin which has since been disc ontinued. Per cardiology will continue daily 81 mg ASA, plavix and warfarin. Continue to t rend troponins as well. I spent 30 minutes with this patient with >50% of the time evaluating patient at the [facility] on numerous occasions, evaluating studies and coordinating care w/ cardiology.Electronical ly signed by Ivette Chaudhry MD at 03/30/2017 6:24 AM Gerson Oseguera MD - 03/30/2017 4:31 AM PDTCardiology Preliminary Procedure Note (Full report to follow) Primary Care Provider: Jamal Guerrero MD Referring Provider: No Referring Provider Per Patient Job Recruiter Staff: Katarina Ngo M.D. Procedure(s): Coronary Angiography [...] None Complications: None Hemostasis: Manual compression in stores laborer. Site: [facility] Recommendations: Patient Status: Inpatient Usual post cath care. Ariana Ivy D O - 03/29/2017 9:30 AM PDT CLINICAL HOSPITALIST SERVICE PROGRESS NOTE PATIENT'S NAME/MRN: Ron Mckeon/[id number] HOSPITAL DAY: #14 24-HOUR EVENTS & SUBJECTIVE: [...] stenosis (noted on o utside records, on Seaside 10 q8 as outpatient) -continue oxycodone 10mg [...] 44 to 32 during first day at [facility] , with addition decline to 24 the [...] arm, midline left arm Ariana Bose DO Embossing Calender Operatorbookkeeping assistant Clinical Hospitalist and Medicine Teaching Service Division of Hospital Medicine [facility] Pager [phone] [facility] DEPARTMENT: Hosp- [id number] Place of Service: - Date of Service: 03/26/2017 CSN: [id number] Modifiers:GC Resident Involved: Yes Suggested CPT: 42795 Subsequent Visit Detailed/High complexity 35 min Ariana Iyv DO - 03/28/2017 8: 06 AM PDT CLINICAL HOSPITALIST SERVICE PROGRESS NOTE PATIENT'S NAME/MRN: Ron Mckeon/[id number] HOSPITAL DAY: #13 24-HOUR EVENTS & SUBJECTIVE: [...] stenosis (noted on o utside records, on [place] q8 as outpatient) Improving L groin pain [...] 44 to 32 during first day at [facility] , with addition decline to 24 the [...] arm, midline left arm Ariana Bose DO Embossing Calender Operatorbookkeeping assistant Clinical Hospitalist and Medicine Teaching Service Division of Hospital Medicine [facility] Pager [phone] [facility] DEPARTMENT: Hosp- [id number] Place of Service: - Date of Service: 03/26/2017 CSN: [id number] Modifiers:GC Resident Involved: Yes Suggested CPT: 16885 Subsequent Visit Detailed/High complexity 35 min Ariana [...] IV infusion, 5 mL/hr, intravenous, CONTINUOUS, CLAUDIO Alsa, Last Rate: 5 mL/hr at 03/27/17 0503, [...] 44 to 32 during first day at [facility] , with addition decline to 24 the [...] arm, midline left arm Ariana Bose DO Embossing Calender Operatorbookkeeping assistant Clinical Hospitalist and Medicine Teaching Service Division of Hospital Medicine [facility] Pager [phone] [facility] DEPARTMENT: Hosp- [id number] Place of Service: - Date of Service: 03/26/2017 CSN: [id number] Modifiers:GC Resident Involved: Yes Suggested CPT: 77579 Subsequent Visit Detailed/High complexity 35 min Chapis [...] 44 to 32 during first day at [facility] , with addition decline to 24 the [...] arm, midline left arm Ariana Bose DO Embossing Calender Operatorbookkeeping assistant Clinical Hospitalist and Medicine Teaching Service Division of [facility] Medicine [facility] Pager [phone] [facility] DEPARTMENT: Hosp- [id number] Place of Service: - Date of Service: 03/26/2017 CSN: [id number] Modifiers:GC Resident Involved: Yes Suggested CPT: 30679 Subsequent Visit Detailed/High complexity 35 min Wan Cano MD - 03/25/2017 3:07 PM PDT . Cardiovascular Intensive Care Unit Attending Progress Note CVICU D2 Assigned #[id number] ICU Admission Reason Most Recent Value ICU [...] artery. ANY X2 placed in outs surinder stores laborer along with IABP. Arrived in cardiogenic [...] Pager Mellisa Haji MD Admitting Provider Cardiology 66159 Zelalem Del Toro MD ICU PM Attending Anesthesiology 78447 Code Status Code Status Full Code The Advanced Care Note for this patient can be found under the notes tab in chart review. Quality section Reardon necessity reviewed: Hourly/Accurate measurement of urinary output for clinical manage ment of critically ill patients Wan Deleon MD, JOHN, ERVIN Cardiovascular Intensive Care Unit [address], [place] [address] I have spent a total of 38 [...] xceptions/additions as noted. Date of Service: 03/25/2017 [facility] DEPARTMENT: ANE ICU CARDIAC Place of Service:- Inpatient CSN: [id number] Suggested Modifier: GC - Resident Involved Suggested CPT: TO SPECIAL LIBRARIAN Jose Ramon Khan MD - 03/24/2017 10:54 AM PDT . Cardiovascular Intensive Care Unit Team Progress Note CVICU D2 Assigned #[id number] ICU Admission Reason Most Recent Value ICU [...] artery. ANY X2 placed in outs surinder stores laborer along with IABP. Arrived in cardiogenic [...] & Plan Patient went into VFib during stores laborer procedure at [facility]. Was shocked 17 times Targeted temperature [...] edema. Patient was difficult intubation at outside stores laborer. -secretions improving, cough strong -s/p 7 [...] Pager Mellisa Haji MD Admitting Provider Cardiology 86066 Zelalem Del Toro MD ICU PM Attending Anesthesiology 47451 The Advanced Care Note for this patient [...] Ramon Alvarado MD Author:Jose Ramon Alvarado MD [address] [address] [place] [address]Ovfulnbliqidpi signed by Jose Ramon Alvarado MD at 03/24/2017 11:00 AM Wan Cano MD - 03/24/2017 9:47 AM PDTFormatting of this note might be diff erent from the original. Cardiovascular Intensive Care Unit Attending Progress Note CVICU D2 Assigned #[id number] ICU Admission Reason Most Recent Value ICU [...] artery. ANY X2 placed in outs surinder stores laborer along with IABP. Arrived in cardiogenic [...] Pager Mellisa Haji MD Admitting Provider Cardiology 70675 Zelalem Del Toro MD ICU PM Attending Anesthesiology 66842 Code Status Code Status Full Code The Advanced Care Note for this patient can be found under the notes tab in chart review. Quality section Reardon necessity reviewed: Hourly/Accurate measurement of urinary output for clinical manage ment of critically ill patients Wan Deleon MD, JOHN, ERVIN Cardiovascular Intensive Care Unit [address] [place] [address] I have spent a total of 42 [...] xceptions/additions as noted. Date of Service: 03/24/2017 [facility] DEPARTMENT: [facility] ICU CARDIAC Place of Service:- Inpatient CSN: [id number] Suggested Modifier: GC - Resident Involved Suggested CPT: TO SPECIAL LIBRARIAN Author:Wan Deleon Md, [address] [address]Kumvlrzywsvzxk signed by Wan Deleon MD at 03/24/2017 9:49 AM Tamia De La Paz PA-C - 03/23/2017 11:54 PM PDTFormatting of this note might be diff erent from the original. Cardiovascular Intensive Care Unit Clinical Update Note Team: D2 Team Pager: [phone] Attending: Katey Pt Name: Ron Mckeon ID: Abbreviated HPI Abbreviated HPI / Daily Assessment Ron Mckeon is a 61 year old man with acute cardiogenic shock in the setting of acu te STEMI from thrombosed left main coronary artery. Initially had lesion in proximal LAD and distal LM, but then acutely thrombosed his left main coronary artery. ANY X2 placed in outs surinder stores laborer along with IABP. Arrived in cardiogenic [...] Unit Team Progress Note CVICU D2 Assigned #[id number] ICU Admission Reason Most Recent Value ICU [...] artery. ANY X2 placed in outs surinder stores laborer along with IABP. Arrived in cardiogenic [...] dc'd 03/23 STEMI (ST elevation myocardial infarction) ([facility]) Yes Overview Xience Alpine 3.0 [...] & Plan Patient went into VFib during stores laborer procedure at [facility]. Was shocked 17 times Targeted temperature [...] edema. Patient was difficult intubation at outside stores laborer. -fevering nightly, cultures negative, WBC stable [...] Pager Mellisa Haji MD Admitting Provider Cardiology 55519 The Advanced Care Note for this patient [...] Ramon Alvarado MD Author:Jose Ramon Alvarado MD [address] [address]Sgbaohnzlhtwiy signed by Jose Ramon Alvarado MD at 03/23/2017 11:41 AM PDTWan Deleon MD - 03/23/2017 9:51 AM PDTFormatting of this note might be diff erent from the original. Cardiovascular Intensive Care Unit Attending Progress Note CVICU D2 Assigned #[id number] ICU Admission Reason Most Recent Value ICU [...] artery. ANY X2 placed in outs surinder stores laborer along with IABP. Arrived in cardiogenic [...] Pager Mellisa Haji MD Admitting Provider Cardiology 50749 Code Status Code Status Full Code The [...] MD, JOHN, ERVIN Cardiovascular Intensive Care Unit [employer] [place] [address] I have spent a total of 44 [...] xceptions/additions as noted. Date of Service: 03/23/2017 [facility] DEPARTMENT: [facility] ICU CARDIAC Place of Service:- Inpatient CSN: [id number] Suggested Modifier: GC - Resident Involved Suggested CPT: TO SPECIAL LIBRARIAN Tamia De La Paz PA-C - 03/22/2017 7:58 PM PDT . Cardiovascular Intensive Care Unit Clinical Update Note Team: D2 Team Pager: [phone] Attending: Abdulaziz Merrill Name: Ron Mckeon ID: [...] Unit Attending Progress Note CVICU D2 Assigned #[id number] ICU Admission Reason Most Recent Value ICU [...] Pager Mellisa Haji MD Admitting Provider Cardiology 82634 Code Status Code Status Full Code Quality section A-Line necessity reviewed: Djfe-ed-aovg blood pressure monitoring Reardon necessity reviewed: Hourly/Accurate [...] Date of Service: 03/22/2017 Author:Anurag Ashby MD [address] [address]Ydsmyrhckqhbwz signed by Anurag Ashby MD at 03/22/2017 11:07 AM P Macho Sellers MD - 03/22/2017 11:00 AM PDT Cardiovascular Intensive Care Unit Team Progress Note CVICU D2 Assigned #[id number] ICU Admission Reason Most Recent Value ICU [...] & Plan Patient went into VFib during stores laborer procedure at [facility]. Was shocked 17 times Targeted temperature [...] edema. Patient was difficult intubation at outside stores laborer. -vanc zosyn stopped 03/17 -fever 38.3 [...] Pager Mellisa Haji MD Admitting Provider Cardiology 37378 This patient does not have an Advanced Care Note for this Admission. Please use the Goal of care section of your ICU navigator to document the advanced care discussion. Quality section A-Line necessity reviewed: Ppho-ot-xocs blood pressure monitoring Reardon necessity reviewed: Hourly/Accurate measurement of urinary output for clinical manage ment of critically ill patients FAST HUG Feeding: Tube Feeds: Replete @ 55 mL/hr Analgesia: APAP, hydromorphone PRN Sedation: N/A Thromboprophylaxis: Heparin infusion Head of Bed: Head of Bed >30 degrees Ulcer Prophylaxis: Famotidine Glycemic Control: insulin infusion Created by Macho Gaytan MD Author:Macho Gaytan MD [address] [address]Kyjjxzkemytewq signed by Macho Gaytan MD at 03/23/2017 12:35 PM PDTT Tamia leon PA-C - 03/21/2017 7:02 PM PDTFormatting of this note might be different f rom the original. Cardiovascular Intensive Care Unit Clinical Update Note Team: D2 Team Pager: [phone] Attending: Abdulaziz Merrill Name: Ron Mckeon ID: [...] Opens eyes, nods head. Follows commands for clinical technician and Plan: Hospital Problems Priority POA Head/Neck [...] Unit Team Progress Note CVICU D2 Assigned #[id number] ICU Admission Reason Most Recent Value ICU [...] & Plan Patient went into VFib during stores laborer procedure at [facility]. Was shocked 17 times Targeted temperature [...] edema. Patient was difficult intubation at outside stores laborer. -vanc zosyn stopped 03/17 -fever 38.3 [...] Pager Mellisa Haji MD Admitting Provider Cardiology 61711 This patient does not have an Advanced Care Note for this Admission. Please use the Goal of care section of your ICU navigator to document the advanced care discussion. Quality section A-Line necessity reviewed: Okfa-nb-pvwu blood pressure monitoring CVC necessity reviewed: Hemodynamic [...] by Macho Gaytan MD Author:Macho Gaytan MD [address] [address]Dhouuljerndcup signed by Macho Gaytan MD at 03/21/2017 1:43 PM Anurag Paredes MD - 03/21/2017 12:22 PM PDT Cardiovascular Intensive Care Unit Attending Progress Note CVICU D2 Assigned #[id number] ICU Admission Reason Most Recent Value ICU [...] Pager Mellisa Haji MD Admitting Provider Cardiology 17109 Code Status Code Status Full Code Quality section A-Line necessity reviewed: Zrdj-zx-wehx blood pressure monitoring CVC necessity reviewed: Plan [...] Date of Service: 03/21/2017 Author:Anurag Ashby MD [address] [address] [place] [address]Laxqlxrjbdeucx signed by Anurag Ashby MD at 03/21/2017 12:22 PM P Jose Ramon Coburn MD - 03/20/2017 12:36 PM PDTFormatting of this note might be differen t from the original. Cardiovascular Intensive Care Unit Team Progress Note CVICU D2 Assigned #[id number] ICU Admission Reason Most Recent Value ICU [...] & Plan Patient went into VFib during stores laborer procedure at [facility]. Was shocked 17 times Targeted temperature [...] edema. Patient was difficult intubation at outside stores laborer. -vanc zosyn stopped 03/17 -fever 38.3 [...] Pager Mellisa Haji MD Admitting Provider Cardiology 18172 Quality section A-Line necessity reviewed: Ykla-hr-cign blood pressure monitoring CVC necessity reviewed: Hemodynamic [...] Ramon Alvarado MD Author:Jose Ramon Alvarado MD [address] [address]Kznqycjvqkpkjn signed by Jose Ramon Alvarado MD at 03/20/2017 12:49 PM PDTMoulton, Anurag Soni MD - 03/20/2017 12:18 PM PDTFormatting of this note might be differen t from the original. Cardiovascular Intensive Care Unit Attending Progress Note CVICU D2 Assigned #[id number] ICU Admission Reason Most Recent Value ICU [...] Pager Mellisa Haji MD Admitting Provider Cardiology 36472 Code Status Code Status Full Code Quality section A-Line necessity reviewed: Ixbz-vx-icvx blood pressure monitoring CVC necessity reviewed: Medication [...] Date of Service: 03/20/2017 Author:Anurag Ashby MD [address] [address] [place] [address]Vbfzlwjilnqyte signed by Anurag Ashby MD at 03/20/2017 12:18 PM P Raul Conte MD - 03/19/2017 11:01 PM PDTFormatting of this note might be different fro m the original. Cardiovascular Intensive Care Unit Attending Progress Note CVICU D2 Assigned #[id number] ICU Admission Reason Most Recent Value ICU [...] Pager Mellisa Haji MD Admitting Provider Cardiology 85905 Code Status Code Status Full Code Quality section A-Line necessity reviewed: Jgmw-tr-dxbw blood pressure monitoring CVC necessity reviewed: Hemodynamic [...] Date of Service: 03/19/2017 Author:Raul Wei MD [address] [place] [address] Jose Ramon Rodriguez MD - 03/19/2017 4:49 PM PDT Cardiovascular Intensive Care Unit Team Progress Note CVICU D2 Assigned #[id number] ICU Admission Reason Most Recent Value ICU [...] & Plan Patient went into VFib during stores laborer procedure at [facility]. Was shocked 17 times Targeted temperature [...] edema. Patient was difficult intubation at outside stores laborer. -vanc zosyn stopped 03/17 -fever 38.3 [...] Pager Mellisa Haji MD Admitting Provider Cardiology 79570 Quality section A-Line necessity reviewed: Msav-pa-yhko blood pressure monitoring CVC necessity reviewed: Hemodynamic monitoring Reardon necessity reviewed: Hourly/Accurate measurement of urinary output for clinical manage ment of critically ill patients FAST HUG Feeding: TFs Analgesia: multimodal Sedation: propofol Thromboprophylaxis: Heparin infusion Head of Bed: Head of Bed >30 degrees Ulcer Prophylaxis: protonix Glycemic Control: insulin infusion Created by Jose Ramon Alvarado MD Author:Jose Ramon Alvarado MD [address] [address]Ewbujstbmvmlrj signed by Jose Ramon Alvarado MD at 03/19/2017 4:54 PM Lee Fernandez MD - 03/19/2017 2:22 PM PDTFormatting of this note might be different fr om the original. . Extracorporeal Life Support Service Daily Progress Note Pager #[phone] Type: Veno-Arterial (CPT 68462 [place] 25[address]) Date of insertion: 03/15/2017 Diagnosis:Cardiogenic shock Dressing [...] Unit Attending Progress Note CVICU D2 Assigned #[id number] ICU Admission Reason Most Recent Value ICU [...] Pager Mellisa Haji MD Admitting Provider Cardiology 73516 Code Status Code Status Full Code Quality section A-Line necessity reviewed: Nrmq-fx-asww blood pressure monitoring CVC necessity reviewed: Medication [...] Date of Service: 03/19/2017 Author:Anurag Ashby MD [address] [address]Piouhdcoqjznoe signed by Anurag Ashby MD at 03/19/2017 2:17 PM P Jose Ramon Coburn MD - 03/18/2017 12:56 PM PDTFormatting of this note might be differen t from the original. Cardiovascular Intensive Care Unit Team Progress Note CVICU D2 Assigned #[id number] ICU Admission Reason Most Recent Value ICU [...] (obdulio) pm STEMI (ST elevation myocardial infarction) ([facility]) Yes Overview Xience Alpine 3.0 [...] & Plan Patient went into VFib during stores laborer procedure at [facility]. Was shocked 17 times Targeted temperature [...] edema. Patient was difficult intubation at outside stores laborer. -vanc zosyn stopped today Abnormal CK [...] Pager Mellisa Haji MD Admitting Provider Cardiology 46739 Quality section A-Line necessity reviewed: Xrxi-hj-wfci blood pressure monitoring CVC necessity reviewed: Hemodynamic monitoring Reardon necessity reviewed: Hourly/Accurate measurement of urinary output for clinical manage ment of critically ill patients FAST HUG Feeding: trickle feeds Analgesia: multimodal Sedation: propofol Thromboprophylaxis: Heparin infusion Head of Bed: Head of Bed >30 degrees Ulcer Prophylaxis: nexium Glycemic Control: insulin infusion Created by Jose Ramon Alvarado MD Author:Jose Ramon Alvarado MD [address] [address]Ieozdhfbwgwoad signed by Jose Ramon Alvarado MD at 03/18/2017 1:27 PM PDTMoulton, Anurag Soni MD - 03/18/2017 11:56 AM PDTFormatting of this note might be differen t from the original. Cardiovascular Intensive Care Unit Attending Progress Note CVICU D2 Assigned #[id number] ICU Admission Reason Most Recent Value ICU [...] Pager Mellisa Haji MD Admitting Provider Cardiology 64022 Code Status Code Status Full Code Quality section A-Line necessity reviewed: Ydaw-rr-qjzu blood pressure monitoring CVC necessity reviewed: Medication [...] Date of Service: 03/18/2017 Author:Anurag Ashby MD [address] [address]Jtuqjfwvsyhksv signed by Anurag Ashby MD at 03/18/2017 11:59 AM Lee Prince MD - 03/18/2017 11:37 AM PDTFormatting of this note might be different from nissa suh original. . Extracorporeal Life Support Service Daily Progress Note Pager #[phone] Type: Veno-Arterial (CPT 71988 or 25140) Diagnosis:Cardiogenic shock Dressing changed: no Dressing Changed [...] Life Support Service Daily Progress Note Pager #[phone] Type: Veno-Arterial (CPT 07211 or 34[address]) Date of insertion: 03/15/2017 Diagnosis:Cardiogenic shock Dressing [...] Unit Attending Progress Note CVICU D2 Assigned #[id number] ICU Admission Reason Most Recent Value ICU [...] Pager Mellisa Haji MD Admitting Provider Cardiology 57128 Quality section A-Line necessity reviewed: Nxlj-py-xwql blood pressure monitoring CVC necessity reviewed: Rapid [...] Date of Service: 03/17/2017 Author:Raul Wei MD [address] [address] [place] [address]Vvbarfebziqofs signed by Raul Wei MD at 03/17/2017 9:20 PM PD Anurag Kaba MD - 03/17/2017 1:58 PM PDTFormatting of this note might be different fro m the original. Cardiovascular Intensive Care Unit Attending Progress Note CVICU D2 Assigned #[id number] ICU Admission Reason Most Recent Value ICU [...] Mellisa Haji MD Admitting Provider Cardiology 49842 Quality section A-Line necessity reviewed: Onjb-hg-mmsd blood pressure monitoring CVC necessity reviewed: Medication [...] Date of Service: 03/17/2017 Author:Anurag Ashby MD [address] [address]Nnakgeuodhhmrb signed by Anurag Ashby MD at 03/17/2017 2:00 PM P Mauri Calderon - 03/17/2017 1:01 PM PDTTransthoracic echocardiogram completed. Final r eport to follow. Teddy Ibrahim DO, MS - 03/17/2017 10:00 AM PDT Cardiovascular Intensive Care Unit Team Progress Note CVICU D2 Assigned #[id number] ICU Admission Reason Most Recent Value ICU [...] & Plan Patient went into VFib during stores laborer procedure at [facility]. Was shocked 17 times Targeted temperature [...] edema. Patient was difficult intubation at outside stores laborer. -vanc zosyn stopped today Abnormal CK [...] Pager Mellisa Haji MD Admitting Provider Cardiology 35770 This patient does not have an Advanced Care Note for this Admission. Please use the Goal of care section of your ICU navigator to document the advanced care discussion. Quality section A-Line necessity reviewed: Jbhb-br-uihi blood pressure monitoring CVC necessity reviewed: Hemodynamic monitoring Reardon necessity reviewed: Hourly/Accurate measurement of urinary output for clinical manage ment of critically ill patients FAST HUG Feeding: Tube Feeds Analgesia: apap, oxy, hm Sedation: propofol Thromboprophylaxis: Heparin infusion Head of Bed: Head of Bed Flat Ulcer Prophylaxis: Pantoprazole Glycemic Control: insulin infusion Created by Teddy Kee Do, MS [facility] DEPARTMENT: [facility] ICU CARDIAC Place of Service:- Inpatient CSN: [id number] Suggested Modifier: GC - Resident Involved Suggested CPT: TO SPECIAL LIBRARIAN Author:Teddy Kee Do, MS [address] [address]Asynfziicbzmqp signed by Teddy Kee DO, MS at 03/17/2017 6:35 PM Raul Hanson MD - 03/16/2017 7:38 PM PDT Cardiovascular Intensive Care Unit Attending Progress Note CVICU D2 Assigned #[id number] ICU Admission Reason Most Recent Value ICU [...] Pager Mellisa Haji MD Admitting Provider Cardiology 05698 Quality section A-Line necessity reviewed: Rwdf-bn-rlds blood pressure monitoring CVC necessity reviewed: Rapid [...] Date of Service: 03/16/2017 Author:Raul Wei MD [address] [address]Cpanhenglswqgv signed by Raul Wei MD at 03/17/2017 11:03 AM PD Jose Ramon Rodriguez MD - 03/16/2017 5:15 PM PDT Cardiovascular Intensive Care Unit Team Progress Note CVICU D2 Assigned #[id number] ICU Admission Reason Most Recent Value ICU [...] & Plan Patient went into VFib during stores laborer procedure at [facility]. Was shocked 17 times Now on [...] edema. Patient was difficult intubation at outside stores laborer. -bridget retana for now Physical Exam [...] Pager Mellisa Haji MD Admitting Provider Cardiology 73090 Quality section A-Line necessity reviewed: Masc-gc-plou blood pressure monitoring CVC necessity reviewed: Hemodynamic [...] Ramon Alvarado MD Author:Jose Ramon Alvarado MD [address] [address] [place] [address]Yjvkxwvyhulkzr signed by Jose Ramon Alvarado MD at [...] Unit Attending Progress Note CVICU D2 Assigned #[id number] ICU Admission Reason Most Recent Value ICU [...] ICU Day #2 after being transferred from [place] in [place] in acute cardiogenic archie ck following an anterior STEMI. Upon arrival to [facility], decision was made to go emergently on [...] Pager Mellisa Haji MD Admitting Provider Cardiology 26507 Quality section A-Line necessity reviewed: Myqb-fb-nhqt blood pressure monitoring CVC necessity reviewed: Hemodynamic [...] Date of Service: 03/16/2017 Author:Anurag Ashby MD [address] [address]Whcznzsmphxzzf signed by Anurag Ashby MD at 03/16/2017 1:23 PM Lee Prince MD - 03/16/2017 9:41 AM PDTFormatting of this note might be different from t vikash original. . Extracorporeal Life Support Service Daily Progress Note Pager #[phone] Type: Veno-Arterial (CPT 34756 or 39240) Diagnosis:Cardiogenic shock Dressing changed: no Dressing Changed [...] Clinical Update Note Team: D2 Team Pager: [phone] Attending: Abdulaziz Merrill Name: Ron Mckeon ID: [...] Date of Service: 03/16/2017 Mirna Berumen PA-C [facility] DEPARTMENT: [facility] ICU CARDIAC Place of Service:- Inpatient CSN: [id number] Suggested Modifier: None Suggested CPT: TO SPECIAL LIBRARIAN Mirna Berumen PA-C Everardo Valladares MD - 03/15/2017 9:04 PM PDT Cardiovascular Intensive Care Unit Attending Progress Note CVICU D2 Assigned #[id number] ICU Admission Reason Most Recent Value ICU Admission reason Cardiogenic Shock filed at 03/15/2017 1531 Hospital admission dx: left anterior descending artery occlusion, needs cabg Days in ICU Days in Hospital Medical Decision Making ICU Day #1 after being transferred from [place] in [place] in acute cardiogenic archie ck following an anterior STEMI. Upon arrival to [facility], decision was made to go emergently on [...] Pager Mellisa Haji MD Admitting Provider Cardiology 85522 Quality section A-Line necessity reviewed: Qzmc-dy-vwtg blood pressure monitoring CVC necessity reviewed: Hemodynamic [...] and the recent imaging available. Seen with PA/SOCIAL SCIENCE TEACHER Winston Cole. Please see their note for details. I reviewed the documented findings, all data and the recent imaging available. Date of Service: 03/15/2017 Author:Everardo Cintron MD [address] [address]Yzdunjnjgjzzhg signed by Everardo Cintron MD at 03/15/2017 9:[address] - 03/15/2017 2:11 PM PDTTransthoracic echocardiogram completed. Final r eport to follow. oniPatrick genao MD,MPH - 03/15/2017 2:00 PM PDT . Extracorporeal Life Support Service Consult Service Note Pager #[phone] Date: 03/15/17 Author: Patrick Ruiz MD,MPH Consulting Attending: Mellisa Haji MD Reason for Consult: VA ECMO Consideration HPI: 61 year old male who presents this afternoon to [facility] in acute cardiogenic shock second maciej to STEMI / thrombosed L main coronary artery. He was transferred from [place]. His symptoms started this morning around 3am and was seen in [place], [place]. He was diagnosed w ith an anterior STEMI and transferred to the stores laborer in [place], [place]. He was found to h ave [...] pressors (epinephrine and dopamine). On arrival to [facility], he was in profound cardiogenic shock and hypoxic. His MAP was in the 40s. He was tach ycardic into the 150s. IABP was increased to 1:2. Past Medical History: Past Medical History: Diagnosis Date Cardiogenic shock ([facility]) 03/15/2017 Coronary artery disease 03/15/2017 Hypercholesterolemia Hypertension STEMI (ST elevation myocardial infarction) ([facility]) 03/15/2017 Tobacco use Past Surgical [...] from cardiogenic shock. Patrick Ruiz MD, MPH laundry operator wash room Trauma, Critical Care & Acute Care Surgery [facility] onies, Patrick Sexton MD,MPH - 03/15/2017 1:48 PM PDT . . Extracorporeal Life Support Service Initiation Note Pager #[phone] Date of service: 03/15/2017 Author: Patrick Ruiz Md,Mph ECMO Type: Veno-Arterial (CPT 67799 [place] 09387) Oxygenation index FiO2: 100 MAP: 22 Diagnosis:Cardiogenic [...] old male who presents this afternoon to [facility] in acute cardiogenic shock secondary to STEMI [...] | + +--------+ + + + | LZ-KN-PJS-HB,POC RT | Routin | 03/19/2017 | ST [...] | + +--------+ + + + | AK ECMO REV | Routin | 03/19/2017 | [...] +---+--------+ + +--------+ + + + | LS-YF-QBB-HB,POC RT | Routin | 03/19/2017 | ST [...] | + +--------+ + + + | US-GF-AKQ-HB,POC RT | Routin | 03/19/2017 | ST elevation | Results for this | | | e | 10:06 AM | myocardial | procedure are in the | | | | PDT | infarction involving | results section. | | | | | left main coronary | | | | | | artery (HCC) | | + +--------+ + + + | FV-ZY-CGL-HB,POC RT | Routin | 03/19/2017 | ST [...] | + +--------+ + + + | RE-BM-BMD-HB,POC RT | Routin | 03/17/2017 | ST [...] | + +--------+ + + + | TQ-IG-BHR-HB,POC RT | Routin | 03/16/2017 | ST [...] | + +--------+ + + + | VK-WS-DVR-HB,POC RT | Routin | 03/16/2017 | ST [...] | + +--------+ + + + | YU-RI-IFC-HB,POC RT | Routin | 03/15/2017 | ST [...] | + +--------+ + + + | YP-DY-OZS-HB,POC RT | Routin | 03/15/2017 | ST [...] | + +--------+ + + + | ZD-ZE-ENA-HB,POC RT | Routin | 03/15/2017 | ST [...] Height: 175 cm Weight: 89 kgBSA: 2.05 [id number] PHYSICIAN:Katarina Ngo | | .FELLOW:Gerson Mejias M.D. [...] right coronary angiography.COMPLICATIONS:None.TECHNIQUE:Right femoral artery | | 6-Austrian 10 cm [place] sheath, 6-Austrian XB 3.5 guide catheter, 5-Austrian JR4 | | catheter.DESCRIPTION OF PROCEDURE:Informed consent [...] modified Seldinger technique and a | | 5-Austrian micropuncture system, a 6-Austrian 10 cm [place] sheath was placed in the right | | femoral artery. A 6-Austrian XB 3.5 guide catheter was inserted into the ascending aorta | | over a guidewire. The guidewire was removed. The catheter was aspirated and flushed. | | The left coronary system was selectively engaged and imaged in multiple projections. A | | 5-Austrian Kymberly right 4 catheter was advanced to [...] DOSE AREA | | PRODUCT: 3749 cGy ze1HOMYNWHXJDOX:Aortic pressure 87/15, mean aortic pressure 63, heart [...] 03/30/2017 04:50:01DT: | | 03/30/2017 08:34:34Job #: [id number] | |extending from it into the LAD. [...] |YDT/MODL | | | | | | /[id number] | + + CAPILLARY BLOOD GLUCOSE (NO [...] [facility] | [address] | [place], [place] | | | JULIANN SILVA OF CARE | [address] | [address] | | | TESTS | | | [...] | + + + + + | [facility] | [address] | [place] [address] | | | SERVICES, CORE | PARK [...] | + + + + + | [facility] | [address] | [place] [address] | | | SERVICES, CORE | PARK [...] [facility] | [address] | [place] [address] | | | SERVICES, CORE | PARK [...] | | | LABORATORY | | | ZAMBIAN | | | SERVICES, | | | [...] | + + + + + | [facility] | [address] | [place] [address] | | | ARASH, ИРИНА | PARK [...] ranges for full anticoagulation: INR for | INSU | | Venous Thromboembolism (2.0 - 3.0) INR INR | LABORATORY | | for most patients with mech. valves (2.5 - 3.5) INR | ИРИНА ANTOINE | + + + + + + + + | Performing | Address | City/State/Zipcode | Phone Number | | Organization | | | | + + + + + | [facility] | [address] | [place] [address] | | | ИРИНА ANTOINE | TABITHA [...] | + + + + + | [facility] | [address] | [place] [address] | | | ARASH, ИРИНА | TABITHA [...] [facility] | [address] | [place], [place] | | | JULIANN SILVA OF ALEX[facility] | [address] | [address] | | | TESTS | | | [...] [facility] | [address] | [place], [place] | | | R[facility]ARDO POINT OF CARE | [address] | [address] | | | TESTS | | | [...] + + + | [facility] | [address] | [place], [place] | | | [facility]O POINT OF [facility] | [address] | [address] | | | TESTS | | | [...] | + + + + + | [facility] | [address] | [place] [address] | | | SERVICES, CORE | TABITHA [...] | | | LABORATORY | | | ZAMBIAN | | | SERVICES, | | | [...] [facility] | [address] | [place] [address] | | | SERVICES, CORE | PARK [...] [facility] | [address] | [place] [address] | | | SERVICES, CORE | PARK [...] | + + + + + | [facility] | [address] | [place] [address] | | | SERVICES, CORE | TABITHA [...] [facility] | [address] | [place], [place] | | | [facility]O POINT OF CARE | [address] | [address] | | | TESTS | | | [...] [facility] | [address] | [place], [place] | | | RICARDO POINT OF CARE | [address] | [address] | | | TESTS | | | [...] (H) | 70 - 99 mg/dL | [facility] - | | | GLUCOSE, | | [...] [facility] | [address] | [place], [place] | | | JULIANN S[facility]VA OF [facility] | [address] | [address] | | | TESTS | | | [...] [facility] | [address] | [place], [place] | | | JULIANN SILVA OF CARE | [address] | [address] | | | TESTS | | | [...] [facility] | [address] | [place] [address] | | | SERVICES, CORE | PARK [...] | | | LABORATORY | | | ZAMBIAN | | | SERVICES, | | | [...] | + + + + + | [facility] | [address] | [place] [address] | | | SERVICES, ИРИНА | TABITHA [...] | + + + + + | [facility] | [address] | [place] [address] | | | ARASH, ИРИНА | TABITHA [...] [facility] | [address] | [place] [address] | | | SERVICES, CORE | TABITHA [...] | + + + + + | [facility] | [address] | [place] [address] | | | ARASH, ИРИНА | TABITHA [...] [facility] | [address] | [place], [place] | | | R[facility]O POINT OF CARE | [address] | [address] | | | TESTS | | | [...] | | | LABORATORY | | | ZAMBIAN | | | SERVICES, | | | [...] | + + + + + | [facility] | [address] | [place] [address] | | | SERVICES, CORE | TABITHA [...] DEPT OF | [address] | [place], [place] | | | CARDIOLOGY | [address] | [address] | | + + + + + CAPILLARY BLOOD GLUCOSE (NO CHG), POC (03/30/2017 5:22 PM PDT) + +---------+ + + + | Component | Value | Ref Range | Performed | Pathologist | | | | | At | Signature | + +---------+ + + + | BLOOD | 116 (H) | 70 - 99 mg/dL | [facility] - | | | GLUCOSE, | | [...] [facility] | [address] | [place], [place] | | | RICARDO CHERRYVALE OF [facility] | [address] | [address] | | | TESTS | | | [...] | | | LABORATORY | | | ZAMBIAN | | | SERVICES, | | | [...] | + + + + + | [facility] | [address] | [place] [address] | | | SERVICES, CORE | PARK [...] | + + + + + | [facility] | [address] | [place] [address] | | | SERVICES, CORE | PARK [...] + +------ + | [facility] | [facility] U DEPT OF | | [facility] Adult Echocardiography | CARDI OLOGY | | Laboratory [address] [place] [address] | | | [place] [address] Pt Name: | | | RON Chaudhary MKIE Study Date/Time 03/30/2017 / 10:44:00 | | | AMMRN: [id number] Most recent | | | prior: 03/19/17 #: [id number] No. previous | | | echos: 3DOB: 1955 61 years Heart | | | Rate: 70 bpmHeight: 68.0 in | | | Blood Pressure: 100/55 mm/HgWeight: 197.0 | | | lb Gender: | | | MBSA: 2.03 m2 Order | | | ID: [id number] Salesperson Driver: Shahab Sutton | | | RDCSSonographer 2: Karly Gayle Referring Provider: Ariana | | | [facility] Location: 11KModalities Performed: 2D, Color flow, [...] patient's significant recent [place], we activated the stores laborer. Patient | | | history has [...] Report electronically signed by: | | | [id number] Jordon Neville MD (03/30/2017, 2:04:56 PM) Final | | | | | |Wall Scoring: | | | | | | | | |Report electronically signed by: [id number] Jordon Neville MD (03/30/2017, 2:04:56 PM) | | | | | | | | | | | | Final | | + +------ + + + | Procedure Note | + + | Interface, Cardiology Results - 03/30/2017 2:04 PM [facility] | | [facility] [address] [place] [address] | | [place], [place] [address] Pt Name: RON Chaudhary | | MIKE Study Date/Time 03/30/2017 / 10:44:00 AMMRN: [id number] Most | | recent prior: 03/19/17 #: [id number] No. previous echos: 3DOB: | | 1955 61 years Heart Rate: 70 bpmHeight: 68.0 in Blood | | Pressure: 100/55 mm/HgWeight: 197.0 lb Gender: MBSA: | | 2.03 m2 Order ID: [id number] Salesperson Driver: Shahab Sutton | | RDCSSonographer 2: Karly Major [facility] Location: | | 11KModalities Performed: 2D, Color [...] patient's significant recent [place], we activated the stores laborer. Patient history has been | | [...] mmHg | | m/sIVS(d) 0.78 (0.6-1.1cm) LVOT Roahn 1.26 E/A Ratio 0.56 cm | | [...] Scoring: Report | | electronically signed by: [id number] Jordon Neville MD (03/30/2017, 2:04:56 PM) Final [...] | | | |Report electronically signed by: [id number] Jordon Neville MD (03/30/2017, 2:04:56 PM) | | | | | | | | Final | + + + + + + + | Performing | Address | City/State/Zipcode | Phone Number | | Organization | | | | + + + + + | [facility] | [address] | [place], [place] | | | CARDIOLOGY | [address] | [address] | | + + + + + CAPILLARY BLOOD GLUCOSE (NO CHG), POC (03/30/2017 9:08 AM PDT) + +---------+ + + + | Component | Value | Ref Range | Performed | Pathologist | | | | | At | Signature | + +---------+ + + + | BLOOD | 110 (H) | 70 - 99 mg/dL | [facility] - | | | GLUCOSE, | | [...] [facility] | [address] | [place], [place] | | | JULIANN SILVA OF CARE | [address] | [address] | | | TESTS | | | [...] | + + + + + | [facility] | [address] | [place] [address] | | | SERVICES, CORE | TABITHA [...] [facility] | [address] | [place], [place] | | | RICARDO [facility] | [address] | [address] | | | TESTS | | | [...] + | [facility] | [address] | [place], [place] | | | CARDIOLOGY | [address] | [address] | | + + + + + [...] | | | LABORATORY | | | ZAMBIAN | | | SERVICES, | | | [...] [facility] | [address] | [place] [address] | | | SERVICES, CORE | PARK [...] | + + + + + | [facility] | [address] | [place] [address] | | | SERVICES, CORE | PARK [...] | + + + + + | [facility] | [address] | [place] [address] | | | SERVICES, CORE | TABITHA [...] OF | [address] | [place], [place] | | | CARDIOLOGY | [address] | [address] | | + + + + + [...] + + | [facility] | [address] | [place], [place] | | | CARDIOLOGY | [address] | [address] | | + + + + + [...] | + + + + + | [facility] | [address] | [place] [address] | | | SERVICES, CORE | TABITHA [...] | + + + + + | [facility] | [address] | [place] [address] | | | SERVICES, ИРИНА | TABITHA [...] [facility] | [address] | [place] [address] | | | SERVICES, CORE | TABITHA [...] | + + + + + | [facility] | [address] | [place] [address] | | | SERVICES, ИРИНА | TABITHA [...] [facility] | [address] | [place], [place] | | | JULIANN S[facility] | [address] | [address] | | | TESTS | | | [...] [facility] | [address] | [place] [address] | | | SERVICES, CORE | PARK [...] DEPT OF | [address] | [place], [place] | | | CARDIOLOGY | [facility] | [address] | | + + + + + CAPILLARY BLOOD GLUCOSE (NO CHG), POC (03/29/2017 8:16 PM PDT) + +---------+ + + + | Component | Value | Ref Range | Performed | Pathologist | | | | | At | Signature | + +---------+ + + + | BLOOD | 105 (H) | 70 - 99 mg/dL | [facility] - | | | GLUCOSE, | | [...] [facility] | [address] | [place], [place] | | | RICARDO POINT OF CARE | [address] | [address] | | | TESTS | | | [...] + | [facility] | [address] | [place], [place] | | | JULIANN SILVA OF [facility] | [facility] | [address] | | | TESTS | | | [...] | + + + + + | [facility] | [address] | [place] [address] | | | ИРИНА ANTOINE | TABITHA [...] [facility] | [address] | [place], [place] | | | [facility]UL[facility]ANN SILVA OF [facility] | [address] | [address] | | | TESTS | | | [...] [facility] | [address] | [place] [address] | | | SERVICES, CORE | PARK [...] | | | LABORATORY | | | ZAMBIAN | | | SERVICES, | | | [...] | + + + + + | [facility] | [address] | [place] [address] | | | SERVICES, CORE | TABITHA [...] (H) | 0.90 - 1.20 INR | INSU | | | | | | LABORATORY [...] [facility] | [address] | [place] [address] | | | ИРИНА ANTOINE | TABITHA [...] [facility] | [address] | [place] [address] | | | SERVICES, CORE | PARK [...] | + + + + + | [facility] | [address] | [place] [address] | | | SERVICES, CORE | TABITHA [...] | + + + + + | [facility] | [address] | [place] [address] | | | SERVICES, CORE | TABITHA [...] [facility] | [address] | [place], [place] | | | JULIANN SILVA OF CARE | [address] | [address] | | | TESTS | | | [...] (H) | 70 - 99 mg/dL | [facility] - | | | GLUCOSE, | | [...] - [facility] | [address] | [place], [place] | | | RICARDO POINT OF CARE | [address] | [address] | | | TESTS | | | [...] | | | LABORATORY | | | ZAMBIAN | | | SERVICES, | | | [...] [facility] | [address] | [place] [address] | | | ARASH, ИРИНА | PARK [...] [facility] | [address] | [place] [address] | | | SERVICES, CORE | PARK [...] | | | LABORATORY | | | ZAMBIAN | | | SERVICES, | | | [...] | + + + + + | [facility] | [address] | [place] [address] | | | ARASH, ИРИНА | TABITHA [...] 93 | 70 - 99 mg/dL | [facility] - | | | GLUCOSE, | | [...] R[facility] | [address] | [place], [place] | | | JULIANN SILVA OF CARE | [facility] | [address] | | | TESTS | | | [...] MARIA | [address] | [place], [place] | | | JULIANN SILVA OF [place]LEX[place] | [address] | [address] | | | TESTS | | | [...] [facility] | [address] | [place] [address] | | | ИРИНА ANTOINE | TABITHA [...] | | | LABORATORY | | | ZAMBIAN | | | SERVICES, | | | [...] | + + + + + | [facility] | [address] | [place] [address] | | | SERVICES, CORE | TABITHA [...] | + + + + + | [facility] | [address] | [place] [address] | | | SERVICES, ИРИНА | TABITHA [...] ranges for full anticoagulation: INR for | INSU | | Venous Thromboembolism (2.0 - 3.0) INR INR | LABORATORY | | for most patients with mech. valves (2.5 - 3.5) INR | ИРИНА ANTOINE | + + + + + + + + | Performing | Address | City/State/Zipcode | Phone Number | | Organization | | | | + + + + + | [facility] | [address] | [place] [address] | | | SERVICES, ИРИНА | TABITHA [...] [facility] | [address] | [place] [address] | | | ARASH, ИРИНА | PARK [...] EULOGIO [facility] | [address] | [place], [place] | | | JULIANN SILVA OF [facility] | [address] | [address] | | | TESTS | | | [...] RODGERS | [address] | [place], [place] | | | RICARDO POINT OF CARE | [address] | [address] | | | TESTS | | | [...] MARQU[facility] | [address] | [place], [place] | | | RICARDO POINT OF CARE | [address] | [address] | | | TESTS | | | [...] (H) | 70 - 99 mg/dL | [facility] - | | | GLUCOSE, | | [...] [facility] | [address] | [place], [place] | | | JULIANN SILVA OF [place] | [address] | [address] | | | TESTS | | | [...] + + | [facility] | [address] | [place] [address] | | | SERVICES, CORE | TABITHA [...] | + + + + + | [facility] | [address] | [place] [address] | | | SERVICES, CORE | TABITHA [...] | | | LABORATORY | | | ZAMBIAN | | | SERVICES, | | | [...] + + | [facility] | [address] | [place] [address] | | | SERVICES, CORE | PARK [...] | + + + + + | [employer] | [address] | [place] [address] | | | SERVICES, CORE | TABITHA [...] | + + + + + | [facility] | [address] | [place] [address] | | | ИРИНА ANTOINE | TABITHA [...] RODGERS | [address] | [place], [place] | | | JULIANN SILVA OF [place] | [address] | [address] | | | TESTS | | | [...] [facility] | [address] | [place], [place] | | | RICARDO POINT OF CARE | [address] | [address] | | | TESTS | | | [...] | | | LABORATORY | | | ZAMBIAN | | | SERVICES, | | | [...] | + + + + + | [facility] | [address] | [place] [address] | | | SERVICES, ИРИНА | TABITHA [...] MARIA | [address] | [place], [place] | | | JULIANN SILVA OF [place] | [address] | [address] | | | TESTS | | | [...] EULOGIO CALABRESE | [address] | [place] [address] | | | ARASH, ИРИНА | TABITHA [...] | + + + + + | [facility] | [address] | [place] [address] | | | ИРИНА ANTOINE | TABITHA [...] [facility] | [address] | [place] [address] | | | SERVICES, CORE | PARK [...] | | | LABORATORY | | | ZAMBIAN | | | SERVICES, | | | [...] | + + + + + | [facility] | [address] | [place] [address] | | | SERVICES, CORE | PARK [...] | + + + + + | [facility] | [address] | [place] [address] | | | ИРИНА ANTOINE | TABITHA [...] | + + + + + | [facility] | [address] | [place] [address] | | | SERVICES, CORE | PARK [...] | [facility] | | considered for monitoring usp glycemic control in patients with: | LABORATORY [...] | + + + + + | [facility] | [address] | [place] [address] | | | SERVICES, SPECIAL | TABITHA [...] [facility] | [address] | [place] [address] | | | SERVICES, CORE | PARK [...] - [facility] | [address] | [place], [place] | | | RICARDO POINT OF CARE | [address] | [address] | | | TESTS | | | [...] (H) | 70 - 99 mg/dL | [facility] - | | | GLUCOSE, | | [...] | EULOGIO [facility] | [address] | [place], [place] | | | JULIANN SILVA OF [facility] | [address] | [address] | | | TESTS | | | [...] [facility] | [address] | [place] [address] | | | ARASH, ИРИНА | TABITHA [...] | [facility] | | | GRAVITY | Canmer performed by | | LABORATORY | | [...] [facility] | [address] | [place] [address] | | | ARASH, CORE | TABITHA [...] | + + + + + | [facility] | [address] | [place] [address] | | | [place] | | | | + + + [...] RODGERS | [address] | [place], [place] | | | RICARDO POINT OF CARE | [address] | [address] | | | TESTS | | | [...] MARIA | [address] | [place], [place] | | | JULIANN SILVA OF [place] | [facility] | [address] | | | TESTS | | | [...] | + + + + + | [facility] | [address] | [place] [address] | | | ARASH, ИРИНА | TABITHA [...] [facility] | [address] | [place] [address] | | | SERVICES, CORE | TABITHA [...] | + + + + + | [facility] | [address] | [place] [address] | | | SERVICES, CORE | TABITHA [...] [facility] | [address] | [place] [address] | | | SERVICES, CORE | PARK [...] | | | LABORATORY | | | ZAMBIAN | | | SERVICES, | | | [...] [facility] | [address] | [place] [address] | | | ARASH, ИРИНА | TABITHA [...] | + + + + + | [facility] | [address] | [place] [address] | | | ИРИНА ANTOINE | TABITHA [...] MARIA | [address] | [place], [place] | | | JULIANN SILVA OF CARE | [facility] | [address] | | | TESTS | | | [...] (H) | 70 - 99 mg/dL | [facility] - | | | GLUCOSE, | | [...] R[facility] | [address] | [place], [place] | | | RICARDO POINT OF CARE | [address] | [address] | | | TESTS | | | [...] R[facility]GERS | [address] | [place], [place] | | | JULIANN SILVA OF [place] | [address] | [address] | | | TESTS | | | [...] MARIA | [address] | [place], [place] | | | JULIANN SILVA OF [facility] | [address] | [address] | | | TESTS | | | [...] + + | [facility] | [address] | [place] [address] | | | SERVICES, CORE | PARK [...] [facility] | [address] | [place] [address] | | | SERVICES, CORE | PARK [...] | MIGUELMENDY Enriquez ANA MARIA | [address] | [place], [place] | | | RICARDO [facility] | [address] | [address] | | | TESTS | | | [...] | | | attempt. Midline lot number [id number]; there was + blood | | | [...] [facility] | [address] | [place], [place] | | | JULIANN SILVA OF CARE | [address] | [address] | | | TESTS | | | [...] MARIA | [address] | [place], [place] | | | RICARDO POINT OF CARE | [address] | [address] | | | TESTS | | | [...] | + + + + + | [facility] | [address] | [place] [address] | | | SERVICES, CORE | TABITHA [...] (H) | 70 - 99 mg/dL | [facility] - | | | GLUCOSE, | | [...] RODGERS | [address] | [place], [place] | | | JULIANN SILVA OF [place] | [address] | [address] | | | TESTS | | | [...] MARIA | [address] | [place], [place] | | | JULIANN SILVA OF [place] | [facility] | [address] | | | TESTS | | | [...] (H) | 70 - 99 mg/dL | [facility] - | | | GLUCOSE, | | [...] [facility] | [address] | [place], [place] | | | JULIANN SILVA OF CARE | [address] | [address] | | | TESTS | | | [...] RODGERS | [address] | [place], [place] | | | GURINDER SILVA | [facility] | [address] | | | TESTS | | | [...] [facility] | [address] | [place] [address] | | | ИРИНА ANTIONE | [address] | | | + [...] + + | [facility] | [address] | [place] [address] | | | ИРИНА ANTOINE | TABITHA [...] [facility] | [address] | [place] [address] | | | SERVICES, CORE | PARK [...] | | | LABORATORY | | | ZAMBIAN | | | SERVICES, | | | [...] | + + + + + | [facility] | [address] | [place] [address] | | | ИРИНА ANTOINE | PARK [...] | + + + + + | [facility] | [address] | [place] [address] | | | ИРИНА ANTOINE | TABITHA [...] (H) | 70 - 99 mg/dL | [facility] - | | | GLUCOSE, | | [...] MARIA | [address] | [place], [place] | | | JULIANN SILVA OF [place] | [address] | [address] | | | TESTS | | | [...] RODGERS | [address] | [place], [place] | | | JULIANN SILVA OF [place] | [facility] | [address] | | | TESTS | | | [...] - [facility] | [address] | [place], [place] | | | JULIANN SILVA OF CARE | [facility] | [address] | | | TESTS | | | [...] (H) | 70 - 99 mg/dL | [facility] - | | | GLUCOSE, | | [...] MARIA | [address] | [place], [place] | | | JULIANN SILVA OF CARE | [address] | [address] | | | TESTS | | | [...] [facility] | [address] | [place] [address] | | | ARASH, CORE | PARK [...] - [facility] | [address] | [place], [place] | | | RICARDO POINT OF CARE | [address] | [address] | | | TESTS | | | [...] (H) | 70 - 99 mg/dL | [facility] - | | | GLUCOSE, | | [...] + + + | E[facility]IO [facility] | [address] | [place], [place] | | | JULIANN SILVA OF [facility] | [address] | [address] | | | TESTS | | | [...] | + + + + + | [facility] | [address] | [place] [address] | | | SERVICES, CORE | TABITHA [...] [facility] | [address] | [place], [place] | | | RICARDO POINT OF CARE | [address] | [address] | | | TESTS | | | [...] [facility]QU[facility] | [address] | [place], [place] | | | RICARDO POINT OF CARE | [address] | [address] | | | TESTS | | | [...] RODGERS | [address] | [place], [place] | | | JULIANN SILVA OF CARE | [address] | [address] | | | TESTS | | | [...] [facility] | [address] | [place], [place] | | | RICARDO POINT OF CARE | [address] | [address] | | | TESTS | | | [...] | [facility] | [address] | [place], [place] | | | RICARDO POINT OF CARE | [address] | [address] | | | TESTS | | | [...] + + | [facility] | [address] | [place] [address] | | | SERVICES, CORE | PARK [...] | + + + + + | [facility] | [address] | [place] [address] | | | SERVICES, CORE | TABITHA [...] | + + + + + | [facility] | [address] | [place] [address] | | | SERVICES, CORE | TABITHA [...] | | | LABORATORY | | | ZAMBIAN | | | SERVICES, | | | [...] [facility] | [address] | [place] [address] | | | SERVICES, CORE | TABITHA [...] | + + + + + | [facility] | [address] | [place] [address] | | | SERVICES, ИРИАН | [address] | | | + [...] MAR[facility] | [address] | [place], [place] | | | RICARDO POINT OF CARE | [facility] | [address] | | | TESTS | | | [...] - MARQU[facility] | [address] | [place], [place] | | | RICARDO POINT OF CARE | [address] | [address] | | | TESTS | | | [...] + + + | [facility] | [address] | [place], [place] | | | RICARDO POINT OF CARE | [address] | [address] | | | TESTS | | | [...] MARQU[facility] | [address] | [place], [place] | | | JULIANN SILVA OF CARE | [address] | [address] | | | TESTS | | | [...] - MARQU[facility] | [address] | [place], [place] | | | RICARDO POINT OF CARE | [address] | [address] | | | TESTS | | | [...] RODGERS | [address] | [place], [place] | | | RICARDO POINT OF CARE | [address] | [address] | | | TESTS | | | [...] | + + + + + | [facility] | [address] | [place] [address] | | | ИРИНА ANTOINE | TABITHA [...] (H) | 70 - 99 mg/dL | [facility] - | | | GLUCOSE, | | [...] RODGERS | [address] | [place], [place] | | | RICARDO POINT OF CARE | [address] | [address] | | | TESTS | | | [...] RODGERS | [address] | [place], [place] | | | JULIANN SILVA OF [place] | [address] | [address] | | | TESTS | | | [...] MARIA | [address] | [place], [place] | | | JULIANN SILVA OF CARE | [facility] | [address] | | | TESTS | | | [...] (H) | 70 - 99 mg/dL | [facility] - | | | GLUCOSE, | | [...] RODGERS | [address] | [place], [place] | | | RICARDO POINT OF CARE | [address] | [address] | | | TESTS | | | [...] MARIA | [address] | [place], [place] | | | JULIANN SILVA OF [place] | [address] | [address] | | | TESTS | | | [...] | + + + + + | [facility] | [address] | [place] [address] | | | SERVICES, CORE | TABITHA [...] (H) | 70 - 99 mg/dL | [facility] - | | | GLUCOSE, | | [...] RODGERS | [address] | [place], [place] | | | JULIANN SILVA OF CARE | [address] | [address] | | | TESTS | | | [...] MARQUAM | [address] | [place], [place] | | | RICARDO POINT OF CARE | [address] | [address] | | | TESTS | | | [...] MARQUAM | [address] | [place], [place] | | | JULIANN SILVA OF [place] | [facility] | [address] | | | TESTS | | | [...] RODGERS | [address] | [place], [place] | | | JULIANN SILVA OF [facility] | [address] | [address] | | | TESTS | | | [...] MARQU[facility] | [address] | [place], [place] | | | RICARDO POINT OF CARE | [address] | [address] | | | TESTS | | | [...] MARIA | [address] | [place], [place] | | | [facility]O [facility] | [facility] | [address] | | | TESTS | | | [...] | + + + + + | [facility] | [address] | [place] [address] | | | SERVICES, | [address] [...] [facility] | [address] | [place] [address] | | | SERVICES, | [address] [...] + + + + | PRODUCT | [id number] | | [facility] | | | UNIT [...] + + + + | EXPIRATION | [id number] | | [facility] | | | DATE [...] + + + + | BLOOD | [id number] | | [facility] | | | PRODUCT [...] [facility] | [address] | [place] [address] | | | SERVICES, | [address] [...] [facility] | [address] | [place] [address] | | | SERVICES, CORE | PARK [...] [facility] | [address] | [place] [address] | | | SERVICES, CORE | TABITHA [...] | + + + + + | [facility] | [address] | [place] [address] | | | SERVICES, CORE | PARK [...] | + + + + + | [facility] | [address] | [place] [address] | | | SERVICES, CORE | PARK [...] + + | [facility] | [address] | [place] [address] | | | SERVICES, CORE | PARK [...] | | | LABORATORY | | | ZAMBIAN | | | SERVICES, | | | [...] LABORATORY | [address] | [place] [address] | | | ARASH, ИРИНА | TABITHA [...] (H) | 70 - 99 mg/dL | [facility] - | | | GLUCOSE, | | [...] MARQUAM | [address] | [place], [place] | | | JULIANN SILVA OF [place] | [facility] | [address] | | | TESTS | | | [...] RODGERS | [address] | [place], [place] | | | RICARDO POINT OF CARE | [address] | [address] | | | TESTS | | | [...] MARQUAM | [address] | [place], [place] | | | JULIANN SILVA OF CARE | [facility] | [address] | | | TESTS | | | [...] MARQUAM | [address] | [place], [place] | | | JULIANN SILVA OF [place] | [facility] | [address] | | | TESTS | | | [...] RODGERS | [address] | [place], [place] | | | RICARDO POINT OF CARE | [address] | [address] | | | TESTS | | | [...] MARQUAM | [address] | [place], [place] | | | JULIANN SILVA OF CARE | [facility] | [address] | | | TESTS | | | [...] MARQUAM | [address] | [place], [place] | | | JULIANN SILVA OF [place] | [address] | [address] | | | TESTS | | | [...] RODGERS | [address] | [place], [place] | | | RICARDO POINT OF CARE | [address] | [address] | | | TESTS | | | [...] MARRANDIAM | [address] | [place], [place] | | | RICARDO [facility] | [address] | [address] | | | TESTS | | | [...] | | | LABORATORY | | | ZAMBIAN | | | SERVICES, | | | [...] | + + + + + | [facility] | [address] | [place] [address] | | | SERVICES, ИРИНА | TABITHA [...] MARIA | [address] | [place], [place] | | | JULIANN SILVA OF [place] | [facility] | [address] | | | TESTS | | | [...] (H) | 70 - 99 mg/dL | [facility] - | | | GLUCOSE, | | [...] RODGERS | [address] | [place], [place] | | | RICARDO POINT OF CARE | [address] | [address] | | | TESTS | | | [...] MARIA | [address] | [place], [place] | | | JULIANN SILVA OF [place] | [address] | [address] | | | TESTS | | | [...] on the 1 attempt. Midline lot number [id number]; there was + | | | blood [...] RODGERS | [address] | [place], [place] | | | JULIANN SILVA OF CARE | [facility] | [address] | | | TESTS | | | [...] MARIA | [address] | [place], [place] | | | JULIANN SILVA OF CARE | [address] | [address] | | | TESTS | | | [...] [facility] | [address] | [place] [address] | | | SERVICES, CORE | PARK [...] MARIA | [address] | [place], [place] | | | JULIANN SILVA OF [place] | [address] | [address] | | | TESTS | | | [...] | + + + + + | [facility] | [address] | [place] [address] | | | ИРИНА ANTOINE | TABITHA [...] MARQUAM | [address] | [place], [place] | | | HILL, POINT OF CARE | [address] | [address] | | | TESTS | | | [...] (H) | 70 - 99 mg/dL | [facility] - | | | GLUCOSE, | | [...] MARQUAM | [address] | [place], [place] | | | JULIANN SILVA OF [facility] | [facility] | [address] | | | TESTS | | | [...] RODGERS | [address] | [place], [place] | | | RICARDO POINT OF CARE | [address] | [address] | | | TESTS | | | [...] MARQUAM | [address] | [place], [place] | | | HILL, POINT OF CARE | [address] | [address] | | | TESTS | | | [...] [facility] | [address] | [place] [address] | | | SERVICES, CORE | PARK [...] [facility] | [address] | [place] [address] | | | ARASH, ИРИНА | PARK [...] | + + + + + | [facility] | [address] | [place] [address] | | | SERVICES, CORE | TABITHA [...] | | | LABORATORY | | | ZAMBIAN | | | SERVICES, | | | [...] | + + + + + | [facility] | [address] | [place] [address] | | | SERVICES, CORE | TABITHA [...] (H) | 70 - 99 mg/dL | [facility] - | | | GLUCOSE, | | [...] RODGERS | [address] | [place], [place] | | | RICARDO POINT OF CARE | [address] | [address] | | | TESTS | | | [...] MARQUAM | [address] | [place], [place] | | | RICARDO POINT OF CARE | [address] | [address] | | | TESTS | | | [...] RODGERS | [address] | [place], [place] | | | RICARDO POINT OF CARE | [address] | [address] | | | TESTS | | | [...] RODGERS | [address] | [place], [place] | | | JULIANN SILVA OF [facility] | [address] | [address] | | | TESTS | | | [...] ANA MARIA | [address] | [place], [place] | | | JULIANN SILVA OF [facility] | [address] | [address] | | | TESTS | | | [...] | + + + + + | [facility] | [address] | [place] [address] | | | SERVICES, CORE | TABITHA [...] MARQUAM | [address] | [place], [place] | | | [facility] | [address] | [address] | | | TESTS | | | [...] MARQUAM | [address] | [place], [place] | | | [facility] | [address] | [address] | | | TESTS | | | [...] RODGERS | [address] | [place], [place] | | | [facility] | [address] | [address] | | | TESTS | | | [...] MARQUAM | [address] | [place], [place] | | | [facility] | [address] | [address] | | | TESTS | | | [...] MARQUAM | [address] | [place], [place] | | | [facility] | [address] | [address] | | | TESTS | | | [...] RODGERS | [address] | [place], [place] | | | [facility] | [address] | [address] | | | TESTS | | | [...] MARQUAM | [address] | [place], [place] | | | [facility] | [address] | [address] | | | TESTS | | | [...] | + + + + + | [facility] | [address] | [place] [address] | | | SERVICES, CORE | TABITHA [...] RODGERS | [address] | [place], [place] | | | [facility] | [address] | [address] | | | TESTS | | | [...] MARIA | [address] | [place], [place] | | | RICARDO CHERRYVALE OF [facility] | [address] | [address] | | | TESTS | | | [...] | + + + + + | [facility] | [address] | [place] [address] | | | SERVICES, CORE | TABITHA [...] (H) | 70 - 99 mg/dL | [facility] - | | | GLUCOSE, | | [...] RODGERS | [address] | [place], [place] | | | [facility] | [address] | [address] | | | TESTS | | | [...] the tip in the proximal gastric body. Gratis Олег | | | catheter in place. [...] Note | + + | Service Account, [employer] Res In Interface - 03/20/2017 2:38 PM PDT EXAM: Supine | | frontal view of the abdomen. HISTORY: Study to evaluate feeding tube | | positionCOMPARISON: Chest Xray dated 03/19/2017.FINDINGS AND IMPRESSION:Feeding tube is | | seen in the stomach with the tip in the proximal gastric body.Gratis Олег catheter in | | place.Limited evaluation of the lungs as technique was tailored for feeding tube.I have | | personally reviewed the images and, if necessary, edited the report. I agree with the | | report as now presented. | | | |Feeding tube is seen in the stomach with the tip in the proximal gastric body. | |Gratis Олег catheter in place. | |Limited evaluation [...] RODGERS | [address] | [place], [place] | | | [facility] | [facility] | [address] | | | TESTS | | | [...] MARIA | [address] | [place], [place] | | | JULI[facility] | [address] | [address] | | | TESTS | | | [...] ANA MARIA | [address] | [place], [place] | | | [facility] | [facility] | [address] | | | TESTS | | | [...] (H) | 70 - 99 mg/dL | [facility] - | | | GLUCOSE, | | [...] RODGERS | [address] | [place], [place] | | | [facility] | [facility] | [address] | | | TESTS | | | [...] MARIA | [address] | [place], [place] | | | JULIANN [facility] | [address] | [address] | | | TESTS | | | [...] | + + + + + | [facility] | [address] [facility] | [place] [address] | | | SERVICES, CORE | PARK [...] | + + + + + | [facility] | [address] | [place] [address] | | | SERVICES, CORE | TABITHA [...] | + + + + + | [facility] | [address] | [place] [address] | | | ИРИНА ANTOINE | PARK [...] MARQUAM | [address] | [place], [place] | | | [facility] | [address] | [address] | | | TESTS | | | | + + + + + X-RAY PORTABLE CHEST 1 VIEW (03/20/2017 6:33 AM PDT) + + | Specimen | + + | | + + + + + | Narrative | Performed At | + + + | EXAM: AK CHEST 1 VIEW 03/20/17 04:29:28 HISTORY: ECMO [...] Interface - 03/20/2017 10:12 AM PDT EXAM: AK CHEST 1 | | VIEW 03/20/17 04:29:28 [...] | | + +---------+ + + | [facility] | | | | | VOICE [...] - MARRANDIAM | [address] | [place], [place] | | | [facility] | [address] | [address] | | | TESTS | | | [...] RODGERS | [address] | [place], [place] | | | JULIANN SILVA OF [facility]LEX[facility] | [address] | [address] | | | TESTS | | | [...] MARQUAM | [address] | [place], [place] | | | [facility] | [address] | [address] | | | TESTS | | | [...] MARIA | [address] | [place], [place] | | | RICARDO POINT OF [facility] | [address] | [address] | | | TESTS | | | [...] [facility] | [address] | [place] [address] | | | SERVICES, CORE | PARK [...] [facility] | [address] | [place] [address] | | | SERVICES, CORE | TABITHA [...] [facility] | [address] | [place] [address] | | | ARASH, ИРИНА | TABITHA [...] [facility] | [address] | [place] [address] | | | SERVICES, CORE | PARK [...] | | | LABORATORY | | | ZAMBIAN | | | SERVICES, | | | [...] | + + + + + | [facility] | [address] | [place] [address] | | | SERVICES, CORE | TABITHA [...] - MARQUAM | [address] | [place], [place] | | | [facility]ANN [facility] | [facility] | [address] | | | TESTS | | | [...] RODGERS | [address] | [place], [place] | | | JULIANN SILVA OF [facility] | [address] | [address] | | | TESTS | | | [...] | + + + + + | [facility] | [address] | [place] [address] | | | ARASH CORE | PARK [...] MARQUAM | [address] | [place], [place] | | | [facility]ANN [facility] OF CARE | [facility] | [address] | | | TESTS | | | [...] (H) | 70 - 99 mg/dL | [facility] - | | | GLUCOSE, | | [...] MARIA | [address] | [place], [place] | | | JULIANN SILVA OF [facility] | [address] | [address] | | | TESTS | | | [...] | + + + + + | [facility] | [address] | [place] [address] | | | SERVICES, CORE | TABITHA [...] MARQUAM | [address] | [place], [place] | | | RICARDO POINT OF CARE | [address] | [address] | | | TESTS | | | [...] | + + + + + | [facility] | [address] | [place] [address] | | | SERVICES, ИРИНА | TABITHA [...] MARQUAM | [address] | [place], [place] | | | [facility] | [facility] | [address] | | | TESTS | | | [...] [facility] | [address] | [place] [address] | | | SERVICES, CORE | PARK [...] | + + + + + | [facility] | [address] | [place] [address] | | | SERVICES, CORE | TABITHA [...] (H) | 70 - 99 mg/dL | [facility] - | | | GLUCOSE, | | [...] + + + | [facility] | [address] | [place], [place] | | | RICARDO POINT OF CARE | [address] | [address] | | | TESTS | | | [...] [facility] | [address] | [place] [address] | | | SERVICES, CORE | TABITHA [...] | + + + + + | [facility] | [address] | [place] [address] | | | SERVICES, CORE | TABITHA [...] | + + + + + | [facility] | [address] | [place] [address] | | | SERVICES, CORE | PARK [...] | + + + + + | [facility] | [address] | [place] [address] | | | SERVICES, CORE | TABITHA [...] MARQUAM | [address] | [place], [place] | | | [facility] | [address] | [address] | | | TESTS | | | [...] MARRANDIAM | [address] | [place], [place] | | | R[facility]O PO[facility]ARE | [address] | [address] | | | TESTS | | | [...] (H) | 70 - 99 mg/dL | [facility] - | | | GLUCOSE, | | [...] RODGERS | [address] | [place], [place] | | | JULIANN SILVA OF [facility] | [address] | [address] | | | TESTS | | | [...] | + + + + + | [facility] | [address] | [place] [address] | | | SERVICES, CORE | PARK [...] DEPT OF | [address] | [place], [place] | | | CARDIOLOGY | [facility] | [address] | | + + + + + CAPILLARY BLOOD GLUCOSE (NO CHG), POC (03/19/2017 1:05 PM PDT) + +---------+ + + + | Component | Value | Ref Range | Performed | Pathologist | | | | | At | Signature | + +---------+ + + + | BLOOD | 137 (H) | 70 - 99 mg/dL | [facility] - | | | GLUCOSE, | | [...] R[facility]GERS | [address] | [place], [place] | | | [facility] PO[facility] | [address] | [address] | | | TESTS | | | | + + + + + DL-WT-JRT-HBPOC RT (03/19/2017 1:04 PM PDT) + + [...] [facility] | [address] | [place], [place] | | | RICARDO CHERRYVALE OF [facility] | [address] | [address] | | | TESTS | | | [...] + + + + | PRODUCT | [id number] | | [facility] | | | UNIT [...] + + + + | EXPIRATION | [id number] | | [facility] | | | DATE [...] + + + + | BLOOD | [id number] | | [facility] | | | PRODUCT [...] LABORATORY | [address] | [place] [address] | | | SERVICES, | [address] [...] + + + + | PRODUCT | [id number] | | [facility] | | | UNIT [...] + + + + | EXPIRATION | [id number] | | [facility] | | | DATE [...] + + + + | BLOOD | [id number] | | [facility] | | | PRODUCT [...] | + + + + + | [facility] | [address] | [place] [address] | | | SERVICES, | [address] [...] + + + + | PRODUCT | [id number] | | [facility] | | | UNIT [...] + + + + | EXPIRATION | [id number] | | [facility] | | | DATE [...] + + + + | BLOOD | [id number] | | [facility] | | | PRODUCT [...] | + + + + + | [facility] | [address] | [place] [address] | | | SERVICES, | [address] [...] + + + + | PRODUCT | [id number] | | [facility] | | | UNIT [...] + + + + | EXPIRATION | [id number] | | [facility] | | | DATE [...] + + + + | BLOOD | [id number] | | [facility] | | | PRODUCT [...] | + + + + + | [facility] | [address] | [place] [address] | | | SERVICES, | [address] [...] [facility] | [address] | [place] [address] | | | SERVICES, ИРИНА | TABITHA [...] | | | LABORATORY | | | ZAMBIAN | | | SERVICES, | | | [...] | + + + + + | [facility] | [address] | [place] [address] | | | SERVICES, CORE | TABITHA [...] | + + + + + | [facility] | [address] | [place] [address] | | | SERVICES, CORE | TABITHA [...] | + + + + + | [facility] | [address] | [place] [address] | | | SERVICES, CORE | [address] | | | + + + + + AK ECMO REV (EXT)AND/OR DECANNULATION (03/19/2017 12:36 PM [...] Siria | | | GISELL Preston PhD [facility] [address] [id number] [place], | | | [place] [address] | | + + + ABG-FULL ABL, [...] MARIA | [address] | [place], [place] | | | [facility] | [address] | [address] | | | TESTS | | | [...] | | | | | | JULIANN ISLVA | | [...] MARQUAM | [address] | [place], [place] | | | JULIANN SILVA OF [facility] | [address] | [address] | | | TESTS | | | | + + + + + QA-BL-WTJ-HB,POC RT (03/19/2017 10:24 AM PDT) + + [...] RODGERS | [address] | [place], [place] | | | RICARDO POINT OF CARE | [address] | [address] | | | TESTS | | | [...] MARIA | [address] | [place], [place] | | | JULIANN SILVA OF ALEXIS | [facility] | [address] | | | TESTS | | | | + + + + + UR-HK-LJQ-HB,POC RT (03/19/2017 10:06 AM PDT) + + [...] MARQUAM | [address] | [place], [place] | | | [facility] | [address] | [address] | | | TESTS | | | | + + + + + AR-CS-NEC-HB,POC RT (03/19/2017 9:51 AM PDT) + + [...] RODGERS | [address] | [place], [place] | | | JULIANN SILVA OF [facility] | [address] | [address] | | | TESTS | | | [...] + + + + | PRODUCT | [id number] | | [facility] | | | UNIT [...] + + + + | EXPIRATION | [id number] | | [facility] | | | DATE [...] + + + + | BLOOD | [id number] | | [facility] | | | PRODUCT [...] | + + + + + | [facility] | [address] | [place] [address] | | | SERVICES, | [address] [...] + + + + | PRODUCT | [id number] | | [facility] | | | UNIT [...] + + + + | EXPIRATION | [id number] | | [facility] | | | DATE [...] + + + + | BLOOD | [id number] | | [facility] | | | PRODUCT [...] [facility] | [address] | [place] [address] | | | SERVICES, | [address] [...] + + + + | PRODUCT | [id number] | | [facility] | | | UNIT [...] + + + + | EXPIRATION | [id number] | | [facility] | | | DATE [...] + + + + | BLOOD | [id number] | | [facility] | | | PRODUCT [...] [facility] | [address] | [place] [address] | | | SERVICES, | [address] [...] + + + + | PRODUCT | [id number] | | [facility] | | | UNIT [...] + + + + | EXPIRATION | [id number] | | [facility] | | | DATE [...] + + + + | BLOOD | [id number] | | [facility] | | | PRODUCT [...] + + | [facility] | [address] | [place] [address] | | | SERVICES, | [address] | | | | TRANSFUSION MEDICINE | | | | + + + + + X-RAY PORTABLE CHEST 1 VIEW (03/19/2017 9:13 AM PDT) + + | Specimen | + + | | + + + + + | Narrative | Performed At | + + + | EXAM: AK CHEST 1 VIEW HISTORY: ECMO. Evaluate cannula | [facility] | | placement. COMPARISON: Yesterday FINDINGS: Endotracheal | RADIOLOGY VOICE | | tube, Gratis-Олег catheter and enteric tube remain in place. [...] Interface - 03/19/2017 9:17 AM PDT EXAM: AK CHEST 1 | | VIEW HISTORY: ECMO. Evaluate cannula placement.COMPARISON: YesterdayFINDINGS: | | Endotracheal tube, Gratis-Олег catheter and enteric tube remain in place. [...] RODGERS | [address] | [place], [place] | | | JULIANN SILVA OF CARE | [facility] | [address] | | | TESTS | | | [...] MARQUAM | [address] | [place], [place] | | | J[facility]ANN [facility] | [address] | [address] | | | TESTS | | | [...] | + + + + + | [facility] | [address] | [place] [address] | | | ИРИНА ANTOINE | TABITHA [...] (H) | 70 - 99 mg/dL | [facility] - | | | GLUCOSE, | | [...] MARQUAM | [address] | [place], [place] | | | RICARDO POINT OF [facility]ARE | [address] | [address] | | | TESTS | | | [...] RODGERS | [address] | [place], [place] | | | JULIANN SILVA OF ALEXIS | [facility] | [address] | | | TESTS | | | [...] BLUAM | [address] | [place], [place] | | | JULIANN SILVA OF CARE | [facility] | [address] | | | TESTS | | | [...] (H) | 70 - 99 mg/dL | [facility] - | | | GLUCOSE, | | [...] MARIA | [address] | [place], [place] | | | JULIANN SILVA OF [facility] | [address] | [address] | | | TESTS | | | [...] | + + + + + | [facility] | [address] | [place] [address] | | | SERVICES, CORE | TABITHA [...] MARQUAM | [address] | [place], [place] | | | R[facility]O PO[facility]ARE | [address] | [address] | | | TESTS | | | [...] MARRANDIAM | [address] | [place], [place] | | | R[facility]ARDO POINT [facility] CARE | [address] | [address] | | | TESTS | | | [...] RODGERS | [address] | [place], [place] | | | JULIANN SILVA OF [facility] | [address] | [address] | | | TESTS | | | [...] [facility] | [address] | [place] [address] | | | SERVICES, CORE | PARK [...] RODGERS | [address] | [place], [place] | | | JULIANN SILVA OF [facility] | [facility] | [address] | | | TESTS | | | [...] | + + + + + | [facility] | [address] | [place] [address] | | | SERVICES, CORE | TABITHA [...] | + + + + + | [facility] | [address] | [place] [address] | | | SERVICES, CORE | TABITHA [...] | + + + + + | [facility] | [address] | [place] [address] | | | SERVICES, CORE | PARK [...] [facility] | [address] | [place] [address] | | | SERVICES, CORE | PARK [...] [facility] | [address] | [place] [address] | | | SERVICES, CORE | PARK [...] [facility] | [address] | [place] [address] | | | SERVICES, CORE | PARK [...] | | | LABORATORY | | | ZAMBIAN | | | SERVICES, | | | [...] | + + + + + | [facility] | [address] | [place] [address] | | | SERVICES, CORE | PARK [...] [facility] | [address] | [place] [address] | | | SERVICES, CORE | PARK [...] | + + + + + | [facility] | [address] | [place] [address] | | | SERVICES, CORE | TABITHA [...] MARQUAM | [address] | [place], [place] | | | [facility]O PO[facility] | [address] | [address] | | | TESTS | | | [...] | + + + + + | [facility] | [address] | [place] [address] | | | SERVICES, CORE | PARK [...] MARQUAM | [address] | [place], [place] | | | JULIANN SILVA OF CARE | [address] | [address] | | | TESTS | | | [...] - BLUAM | [address] | [place], [place] | | | R[facility]ARDO PO[facility] | [address] | [address] | | | TESTS | | | [...] | + + + + + | [facility] | [address] | [place] [address] | | | SERVICES, CORE | TABITHA [...] (H) | 70 - 99 mg/dL | [facility] - | | | GLUCOSE, | | [...] MARIA | [address] | [place], [place] | | | JULIANN SILVA OF ALEXIS | [facility] | [address] | | | TESTS | | | [...] MARIA | [address] | [place], [place] | | | JULIANN SILVA OF ALEXIS | [facility] | [address] | | | TESTS | | | [...] (H) | 70 - 99 mg/dL | [facility] - | | | GLUCOSE, | | [...] RODGERS | [address] | [place], [place] | | | JULIANN SILVA OF CARE | [address] | [address] | | | TESTS | | | [...] [facility] | [address] | [place] [address] | | | SERVICES, CORE | PARK [...] | + + + + + | [facility] | [address] | [place] [address] | | | SERVICES, CORE | PARK [...] MARQUAM | [address] | [place], [place] | | | JUL[facility]ANN SIL[facility]ARE | [address] | [address] | | | TESTS | | | [...] [facility] | [address] | [place] [address] | | | ARASH, ИРИНА | TABITHA [...] (H) | 70 - 99 mg/dL | [facility] - | | | GLUCOSE, | | [...] MARQUAM | [address] | [place], [place] | | | JULIANN SILVA OF ALEXIS | [facility] | [address] | | | TESTS | | | [...] RODGERS | [address] | [place], [place] | | | R[facility]ARDO PO[facility] | [address] | [address] | | | TESTS | | | [...] [facility] | [address] | [place] [address] | | | SERVICES, CORE | TABITHA [...] [facility] | [address] | [place] [address] | | | ИРИНА ANTOINE | PARK [...] - MARQUAM | [address] | [place], [place] | | | RICARDO POINT OF CARE | [address] | [address] | | | TESTS | | | [...] (H) | 70 - 99 mg/dL | [facility] - | | | GLUCOSE, | | [...] + + + | [facility] | [address] | [place], [place] | | | JULIANN SILVA OF [facility] | [address] | [address] | | | TESTS | | | [...] | + + + + + | [facility] | [address] | [place] [address] | | | SERVICES, CORE | PARK [...] [facility] | [address] | [place] [address] | | | SERVICES, CORE | TABITHA [...] [facility] | [address] | [place] [address] | | | SERVICES, CORE | PARK [...] [facility] | [address] | [place] [address] | | | ИРИНА ANTOINE | TABITHA [...] | | | LABORATORY | | | ZAMBIAN | | | SERVICES, | | | [...] | + + + + + | [facility] | [address] | [place] [address] | | | SERVICES, CORE | PARK [...] | + + + + + | [facility] | [address] | [place] [address] | | | SERVICES, CORE | TABITHA [...] [facility] | [address] | [place] [address] | | | ИРИНА ANTOINE | TABITHA [...] | + + + + + | [facility] | [address] | [place] [address] | | | SERVICES, CORE | TABITHA [...] (H) | 70 - 99 mg/dL | [facility] - | | | GLUCOSE, | | [...] RODGERS | [address] | [place], [place] | | | JULIANN SILVA OF [facility] | [address] | [address] | | | TESTS | | | [...] MARQUAM | [address] | [place], [place] | | | JULIANN SILVA OF ALEXIS | [facility] | [address] | | | TESTS | | | [...] | + + + + + | [facility] | [address] | [place] [address] | | | SERVICES, CORE | TABITHA [...] (H) | 70 - 99 mg/dL | [facility] - | | | GLUCOSE, | | [...] RODGERS | [address] | [place], [place] | | | [facility] | [address] | [address] | | | TESTS | | | [...] | + + + + + | [facility] | [address] | [place] [address] | | | SERVICES, ИРИНА | TABITHA [...] [facility] | [address] | [place] [address] | | | SERVICES, CORE | PARK [...] + | [facility] - | [address] | [place] [address] | | | [place] | | | | + + + [...] RODGERS | [address] | [place], [place] | | | JULIANN SILVA OF CARE | [address] | [address] | | | TESTS | | | [...] MARQUAM | [address] | [place], [place] | | | HILL, POINT OF CARE | [address] | [address] | | | TESTS | | | [...] [facility] | [address] | [place] [address] | | | SERVICES, CORE | PARK [...] | + + + + + | [facility] | [address] | [place] [address] | | | SERVICES, CORE | TABITHA [...] (H) | 70 - 99 mg/dL | [facility] - | | | GLUCOSE, | | [...] RODGERS | [address] | [place], [place] | | | JULIANN SILVA OF [facility] | [address] | [address] | | | TESTS | | | [...] MARQUAM | [address] | [place], [place] | | | JULIANN ISLVA OF CARE | [address] | [address] | | | TESTS | | | | + + + + + X-RAY PORTABLE CHEST 1 VIEW (03/18/2017 6:05 AM PDT) + + | Specimen | + + | | + + + + + | Narrative | Performed At | + + + | EXAM: AK CHEST 1 VIEW HISTORY: ECMO. Evaluate cannula placement. | [facility] | | COMPARISON: Yesterday FINDINGS: Endotracheal tube tip is | RADIOLOGY VOICE | | 2.5 cm above the jefferson. Enteric tube tip in the stomach. Gratis-Олег | RECOGNITION | | catheter tip projects [...] Note | + + | Service Account, [employer] - 03/18/2017 8:39 AM PDT EXAM: AK CHEST 1 | | VIEW HISTORY: ECMO. Evaluate cannula placement.COMPARISON: YesterdayFINDINGS: | | Endotracheal tube tip is 2.5 cm above the jefferson. Enteric tube tip in the stomach. | | Gratis-Олег catheter tip projects in the main pulmonary [...] ANA MARIA | [address] | [place], [place] | | | JULIANN SILVA OF CARE | [facility] | [address] | | | TESTS | | | [...] (H) | 60 - 99 mg/dL | [facility] - | | | GLUCOSE, | | [...] RODGERS | [address] | [place], [place] | | | RICARDO POINT [facility] CARE | [facility] | [address] | | | TESTS | | | [...] | + + + + + | [facility] | [address] | [place] [address] | | | SERVICES, CORE | TABITHA [...] MARQUAM | [address] | [place], [place] | | | [facility] | [address] | [address] | | | TESTS | | | [...] BLUAM | [address] | [place], [place] | | | JULIANN SILVA OF CARE | [address] | [address] | | | TESTS | | | [...] | + + + + + | [facility] | [address] | [place] [address] | | | SERVICES, | [address] [...] [facility] | [address] | [place] [address] | | | SERVICES, | [address] [...] + + + + | PRODUCT | [id number] | | [facility] | | | UNIT [...] + + + + | EXPIRATION | [id number] | | [facility] | | | DATE [...] + + + + | BLOOD | [id number] | | [facility] | | | PRODUCT [...] | + + + + + | [facility] | [address] | [place] [address] | | | ARASH | [address] [...] (A) | 5 - 10 Minutes | [facility] - | | | CITRATED | | | [facility] | | | | | | JULIANN SILVA | | | | | | OF CARE | | | | | | TESTS | | + + + + + + | K - | 3.1 (A) | 1 - 3 Minutes | [facility] - | | | CITRATED | | [...] at 3:40 | | | PM Rocio Gallowya MD | | + + + + + + + + | Performing | Address | City/State/Zipcode | Phone Number | | Organization | | | | + + + + + | [facility] | [address] | [place], [place] | | | JULIANN SILVA OF [facility] | [address] | [address] | | | TESTS | | | [...] [facility] | [address] | [place] [address] | | | SERVICES, CORE | PARK [...] [facility] | [address] | [place] [address] | | | SERVICES, CORE | PARK [...] [facility] | [address] | [place] [address] | | | SERVICES, CORE | PARK [...] [facility] | [address] | [place] [address] | | | SERVICES, CORE | PARK [...] | | | LABORATORY | | | ZAMBIAN | | | SERVICES, | | | [...] the MDRD equation recommended by the | [facility] | | National Kidney Disease Education Program. [...] | + + + + + | [facility] | [address] | [place] [address] | | | SERVICES, CORE | TABITHA [...] | + + + + + | [facility] | [address] | [place] [address] | | | SERVICES, CORE | [address] | | | + + + + + MAGNESIUM, PLASMA (03/18/2017 1:19 AM PDT) + +-------+ + + + | Component | Value | Ref Range | Performed | Pathologist | | | | | At | Signature | + +-------+ + + + | MAGNESIUM,P | 2.3 | 1.8 - 2.5 mg/dL | INMENDY | | | DENISEMA | | | [...] | + + + + + | [facility] | [address] | [place] [address] | | | ARASH, ИРИНА | PARK [...] [facility] | [address] | [place] [address] | | | ARASH, ИРИНА | TABITHA [...] (H) | 60 - 99 mg/dL | [facility] - | | | GLUCOSE, | | [...] [facility] | [address] | [place], [place] | | | JULIANN SILVA OF [facility] | [address] | [address] | | | TESTS | | | [...] | + + + + + | [facility] | [address] | [place] [address] | | | SERVICES, ИРИНА | TABITHA [...] [facility] | [address] | [place] [address] | | | SERVICES, ИРИНА | TABITHA [...] (H) | 60 - 99 mg/dL | [facility] - | | | GLUCOSE, | | [...] [facility] | [address] | [place], [place] | | | JULIANN SILVA OF [facility] | [facility] | [address] | | | TESTS | | | [...] [facility] | [address] | [place], [place] | | | [facility] | [address] | [address] | | | TESTS | | | [...] [facility] | [address] | [place], [place] | | | JULIANN SILVA OF [facility] | [address] | [address] | | | TESTS | | | [...] (H) | 60 - 99 mg/dL | [facility] - | | | GLUCOSE, | | [...] [facility] | [address] | [place], [place] | | | JULIANN SILVA OF [facility] | [facility] | [address] | | | TESTS | | | [...] | + + + + + | [facility] | [address] | [place] [address] | | | SERVICES, CORE | TABITHA [...] [facility] | [address] | [place], [place] | | | JULIANN SILVA OF CARE | [address] | [address] | | | TESTS | | | [...] [facility] | [address] | [place] [address] | | | SERVICES, CORE | PARK [...] [facility] | [address] | [place] [address] | | | ИРИНА ANTOINE | TABITHA [...] [facility] | [address] | [place] [address] | | | SERVICES, CORE | TABITHA [...] | + + + + + | [facility] | [address] | [place] [address] | | | ИРИНА ANTOINE | TABITHA [...] [facility] | [address] | [place] [address] | | | SERVICES, CORE | TABITHA [...] | [facility] | [address] [facility] [address] | [place], [place] | | | [facility] | [address] | [address] | | | TESTS | | | [...] + + + | [facility] | [address] | [place], [place] | | | JULIANN SILVA OF CARE | [address] | [address] | | | TESTS | | | [...] [facility] | [address] | [place] [address] | | | SERVICES, CORE | PARK [...] [facility] | [address] | [place], [place] | | | JULIANN SILVA OF CARE | [address] | [address] | | | TESTS | | | [...] (H) | 60 - 99 mg/dL | [facility] - | | | GLUCOSE, | | [...] [facility] | [address] | [place], [place] | | | JULIANN SILVA OF [place] | [address] | [address] | | | TESTS | | | [...] + + + + | PRODUCT | [id number] | | [facility] | | | UNIT [...] + + + + | EXPIRATION | [id number] | | [facility] | | | DATE [...] + + + + | BLOOD | [id number] | | [facility] | | | PRODUCT [...] | + + + + + | [facility] | [address] | [place] [address] | | | SERVICES, | [address] [...] + + + + | PRODUCT | [id number] | | [facility] | | | UNIT [...] + + + + | EXPIRATION | [id number] | | [facility] | | | DATE [...] + + + + | BLOOD | [id number] | | [facility] | | | PRODUCT [...] [facility] | [address] | [place] [address] | | | SERVICES, | [address] [...] [facility] | [address] | [place], [place] | | | [facility] | [facility] | [address] | | | TESTS | | | [...] [facility] | [address] | [place] [address] | | | SERVICES, ИРИНА | TABITHA [...] | + + + + + | [facility] | [address] | [place] [address] | | | SERVICES, CORE | PARK [...] + + | [facility] | [address] | [place] [address] | | | SERVICES, CORE | TABITHA [...] [facility] | [address] | [place] [address] | | | SERVICES, CORE | TABITHA [...] | | | LABORATORY | | | ZAMBIAN | | | SERVICES, | | | [...] 11 | 4 - 11 mmol/L | [facility] | | | GAP(ALB | | | [...] | + + + + + | [facility] | [address] | [place] [address] | | | ИРИНА ANTOINE | TABITHA [...] [facility] | [address] | [place] [address] | | | ИРИНА ANTOINE | PARK [...] | + + + + + | [facility] | [address] | [place] [address] | | | SERVICES, ИРИНА | TABITHA [...] [facility] | [address] | [place] [address] | | | SERVICES, CORE | TABITHA [...] [facility] | [address] | [place], [place] | | | R[facility]ARDO [facility]INT OF [facility] | [address] | [address] | | | TESTS | | | [...] | + + + + + | [facility] | [address] | [place] [address] | | | SERVICES, ИРИНА | TABITHA [...] [facility] | [address] | [place] | | | [facility] | [address] | [address] | | | TESTS | | | | + + + + + [facility] DUPLEX LOWER EXTREMITY RT (03/17/2017 12:31 [...] Note | + + | Service Account, [employer] Interface - 03/17/2017 6:18 PM PDT [...] Note | + + | Service Account, [employer] - 03/17/2017 6:17 PM PDT [...] [facility] | [address] | [place], [place] | | | [facility] | [facility] | [address] | | | TESTS | | | [...] [facility] | [address] | [place] [address] | | | SERVICES, CORE | PARK [...] + + -------+ | [facility] | [facility] DE PT OF | | [facility] Adult Echocardiography | CARDIOLOG Y | | Laboratory [address] [place] [address], | | | [place] [address] Pt Name: | | | RON MCKEON Study Date/Time 03/17/2017 / 10:30:26 | | | AMMRN: [id number] Most recent | | | prior: 03/15/2017Acc #: [id number] No. | | | previous echos: 1DOB: 1955 61 years Heart | | | Rate: 139 bpmHeight: 69.0 | | | in Blood Pressure: 133/83 | | | mm/HgWeight: 258.0 | | | lb Gender: | | | MBSA: 2.30 m2 Order | | | ID: [id number] Salesperson Driver: Mauri Domingo LORENZO | | | Referring [...] | | pre-diabetes who is transferred to [facility] with cardiogenic shock in the | | [...] | | | Report electronically signed by: [id number] Jen Ovalle MD, PhD | | | (03/17/2017, 1:53:40 PM) Final | | | | | |Report electronically signed by: [id number] Jen Ovalle MD, PhD (03/17/2017, | | |1:53:40 PM) | | | | | | | | | | | | Final | | + + -------+ + + | Procedure Note | + + | Interface, Cardiology Results - 03/17/2017 1:[address] [facility] | | [facility] E[facility] Laboratory [address] [place] [address] | | [place], [place] [address] Pt Name: RON Chaudhary | | MIKE Study Date/Time 03/17/2017 / 10:30:26 AMMRN: [id number] Most | | recent prior: 03/15/2017Acc #: [id number] No. previous echos: 1DOB: | | 1955 61 years Heart Rate: 139 bpmHeight: 69.0 in Blood | | Pressure: 133/83 mm/HgWeight: 258.0 lb Gender: MBSA: | | 2.30 m2 Order ID: [id number] Salesperson Driver: Mauri Domingo | | RDCSReferring Provider: Mellisa HajiPatient Location: 12KModalities Performed: | | Limited 2D, Color Doppler and Spectral Doppler Limited.Study Quality: Fair.Exam | | Indication: Heart failure; ECMO; s/p STEMIHistory: 61 year old male with a past medical | | history significant for hypertension, hyperlipidemia, ongoing tobacco use and | | pre-diabetes who is transferred to [facility] with cardiogenic shock in the setting of [...] | | Scoring: Report electronically signed by: [id number] Jen Ovalle MD, PhD (03/17/2017, | | [...] NL Values Aortic Mitral | | LVOT Roahn 0.92 m/s E/A Ratio | |Biplane EF [...] | | | |Report electronically signed by: [id number] Jen Ovalle MD, PhD (03/17/2017, | |1:53:40 PM) | | | | | | | | Final | + + + + + + + | Performing | Address | City/State/Zipcode | Phone Number | | Organization | | | | + + + + + | [facility] | [address] | [place], [place] | | | CARDIOLOGY | [address] | [address] | | + + + + + [...] [facility] | [address] | [place], [place] | | | [facility] | [address] | [address] | | | TESTS | | | [...] - [facility] | [address] | [place], [place] | | | R[facility]O [facility]INT OF CARE | [facility] | [address] | | | TESTS | | | [...] + + | [facility] | [address] | [place] [address] | | | SERVICES, CORE | PARK [...] | + + + + + | [facility] | [address] | [place] [address] | | | SERVICES, CORE | TABITHA [...] [facility] | [address] | [place] [address] | | | SERVICES, CORE | TABITHA [...] [facility] | [address] | [place], [place] | | | [facility] | [address] | [address] | | | TESTS | | | [...] [facility] | [address] | [place], [place] | | | [facility]ARE | [address] | [address] | | | TESTS | | | [...] [facility] | [address] | [place], [place] | | | [facility] | [address] | [address] | | | TESTS | | | [...] [facility] | [address] | [place] [address] | | | SERVICES, CORE | PARK [...] | + + + + + | [facility] | [address] | [place] [address] | | | SERVICES, CORE | [address] | | | + + + + + X-RAY PORTABLE CHEST 1 VIEW (03/17/2017 5:37 AM PDT) + + | Specimen | + + | | + + + + + | Narrative | Performed At | + + + | EXAM: AK CHEST 1 VIEW 03/17/17 04:53:29 HISTORY: On [...] Note | + + | Service Account, [employer] - 03/17/2017 9:44 AM PDT EXAM: AK CHEST 1 | | VIEW 03/17/17 04:53:29 [...] - [facility] | [address] | [place], [place] | | | [facility] | [facility] | [address] | | | TESTS | | | [...] [facility] | [address] | [place] [address] | | | SERVICES, CORE | PARK [...] | | | LABORATORY | | | ZAMBIAN | | | SERVICES, | | | [...] + + | [facility] | [address] | [place] [address] | | | [facility] | [address] | | | + [...] | + + + + + | [facility] | [address] | [place] [address] | | | SERVICES, CORE | TABITHA [...] (H) | 60 - 99 mg/dL | INSU - | | | GLUCOSE, | | [...] [facility] | [address] | [place], [place] | | | [facility] | [address] | [address] | | | TESTS | | | [...] | + + + + + | [facility] | [address] | [place] [address] | | | SERVICES, CORE | PARK [...] | 56 (L) | >300 mmHg | INMENDY | | | RATIO | | | [...] | + + + + + | [facility] | [address] | [place] [address] | | | SERVICES, CORE | TABITHA [...] | + + + + + | [facility] | [address] | [place] [address] | | | ИРИНА ANTOINE | TABITHA [...] | + + + + + | [facility] | [address] | [place] [address] | | | SERVICES, CORE | TABITHA [...] [facility] | [address] | [place] [address] | | | SERVICES, CORE | PARK [...] [facility] | [address] | [place] [address] | | | SERVICES, ИРИНА | PARK [...] | + + + + + | [facility] | [address] | [place] [address] | | | SERVICES, CORE | TABITHA [...] | + + + + + | [facility] | [address] | [place] [address] | | | SERVICES, ИРИНА | TABITHA [...] | + + + + + | [facility] | [address] | [place] [address] | | | ARASH, CORE | PARK [...] | + + + + + | [facility] | [address] | [place] [address] | | | SERVICES, CORE | TABITHA [...] + | [facility] | [address] | [place], [place] | | | CARDIOLOGY | [address] | [address] | | + + + + + IL-OP-XSX-HB,POC RT (03/17/2017 12:44 AM PDT) + + [...] [facility] | [address] | [place], [place] | | | [facility] | [address] | [address] | | | TESTS | | | [...] [facility] | [address] | [place], [place] | | | [facility] | [address] | [address] | | | TESTS | | | [...] [facility] | [address] | [place], [place] | | | [facility]O [facility] OF CARE | [address] | [address] | | | TESTS | | | [...] [facility] | [address] | [place] [address] | | | SERVICES, CORE | PARK [...] [facility] | [address] | [place], [place] | | | [facility] CARE | [address] | [address] | | | TESTS | | | [...] [facility] | [address] | [place], [place] | | | [facility] | [address] | [address] | | | TESTS | | | [...] | + + + + + | [facility] | [address] | [place] [address] | | | ИРИНА ANTOINE | TABITHA [...] [facility] | [address] | [place], [place] | | | [facility] | [facility] | [address] | | | TESTS | | | [...] | + + + + + | [facility] | [address] | [place] [address] | | | SERVICES, CORE | TABITHA [...] (H) | 60 - 99 mg/dL | [facility] - | | | GLUCOSE, | | [...] + + + | [facility] | [address] | [place], [place] | | | [facility]ARE | [address] | [address] | | | TESTS | | | [...] [facility] | [address] | [place], [place] | | | [facility] CARE | [facility] | [address] | | | TESTS | | | [...] present: | | | Yes Fellow name: irna Pre-Procedure Consent: written consent | | | not obtained Verbal consent obtained Consent given by: Next of | | | kin Patient identity confirmed per policy: Yes Team Pause: | | | Immediatly prior to the procedure a pause per protocol was called. A | | | pause verifies correct patient, procedure, equipment, sales support rep | | | and site/side marked [...] | + + + + + | [facility] | [address] | [place] [address] | | | SERVICES, CORE | TABITHA [...] [facility] | [address] | [place] [address] | | | SERVICES, CORE | TABITHA [...] | + + + + + | [facility] | [address] | [place] [address] | | | SERVICES, CORE | PARK [...] [facility] | [address] | [place] [address] | | | SERVICES, CORE | PARK [...] | | | LABORATORY | | | ZAMBIAN | | | SERVICES, | | | [...] | + + + + + | [facility] | [address] | [place] [address] | | | ИРИНА ANTOINE | TABITHA [...] [facility] | [address] | [place] [address] | | | SERVICES, CORE | PARK [...] [facility] | [address] | [place] [address] | | | SERVICES, CORE | TABITHA [...] [facility] | [address] | [place], [place] | | | [facility] | [address] | [address] | | | TESTS | | | [...] - [facility] | [address] | [place], [place] | | | [facility] CARE | [address] | [address] | | | TESTS | | | [...] + + + | [facility] | [address] | [place], [place] | | | [facility] CARE | [address] | [address] | | | TESTS | | | [...] [facility] | [address] | [place], [place] | | | [facility]ARE | [address] | [address] | | | TESTS | | | [...] [facility] | [address] | [place] [address] | | | ИРИНА ANTOINE | TABITHA [...] | | | LABORATORY | | | ZAMBIAN | | | SERVICES, | | | [...] | + + + + + | [facility] | [address] | [place] [address] | | | SERVICES, CORE | TABITHA [...] [facility] | [address] | [place], [place] | | | [facility]ARE | [address] | [address] | | | TESTS | | | [...] [facility] | [address] | [place] [address] | | | ИРИНА ANTOINE | TABITHA [...] [facility] | [address] | [place], [place] | | | [facility] | [address] | [address] | | | TESTS | | | | + + + + + OPERATION RECORD (03/16/2017 9:30 AM PDT) + + | Procedure Note | + + | Dale Mak MD - 03/15/2017 3:42 PM PDT Date of Service: 03/15/2017 Attending | | Surgeon:Ron Powell MD. Ring Sewer(s):Dale Mak MD. | | Preoperative Diagnoses: 1.Cardiogenic [...] The | | patient was transferred to [facility] for further management. At [facility], the patient continued | | to be [...] cannulation with micropuncture | | wire. A 7-Austrian sheath was placed in an antegrade direction down the SFA for distal | | perfusion. A 19-Austrian arterial cannula was placed in a retrograde [...] 03/15/2017 15:23:00DT: 03/15/2017 15:42:27Job #: | | [id number] | | | |A 19-Austrian arterial cannula was placed in a retrograde [...] |HS/MODL | | | | | | /[id number] | + + CBC (HEMOGRAM) ONLY (03/16/2017 [...] + + | [facility] | [address] | [place] [address] | | | ARASH, ИРИНА | TABITHA [...] | + + + + + | [facility] | [address] | [place] [address] | | | SERVICES, CORE | TABITHA [...] | + + + + + | [facility] | [address] | [place] [address] | | | SERVICES, CORE | PARK [...] - [facility] | [address] | [place], [place] | | | [facility] | [facility] | [address] | | | TESTS | | | [...] (H) | 60 - 99 mg/dL | [facility] - | | | GLUCOSE, | | [...] [facility] | [address] | [place], [place] | | | [facility]O [facility] CARE | [address] | [address] | | | TESTS | | | [...] [facility] | [address] | [place], [place] | | | [facility] | [facility] | [address] | | | TESTS | | | | + + + + + X-RAY PORTABLE CHEST 1 VIEW (03/16/2017 5:44 AM PDT) + + | Specimen | + + | | + + + + + | Narrative | Performed At | + + + | EXAM: AK CHEST 1 VIEW HISTORY: Evaluate cannula placement. heart | [facility] | | failure. COMPARISON: Yesterday FINDINGS: Endotracheal | RADIOLOGY VOICE | | tube, Gratis-Олег catheter and enteric tube remain in place. [...] Note | + + | Service Account, [employer] Interface - 03/16/2017 8:27 AM PDT EXAM: AK CHEST 1 | | VIEW HISTORY: Evaluate cannula placement. heart failure.COMPARISON: YesterdayFINDINGS: | | Endotracheal tube, Gratis-Олег catheter and enteric tube remain in place. [...] [facility] | [address] | [place], [place] | | | [facility] | [address] | [address] | | | TESTS | | | [...] [facility] | [address] | [place], [place] | | | [facility] | [facility] | [address] | | | TESTS | | | | + + + + + FG-TS-THJ-HBPOC RT (03/16/2017 3:42 AM PDT) + + [...] [facility] | [address] | [place], [place] | | | [facility]ARE | [address] | [address] | | | TESTS | | | [...] [facility] | [address] | [place], [place] | | | [facility] | [address] | [address] | | | TESTS | | | [...] | + + + + + | [facility] | [address] | [place] [address] | | | SERVICES, CORE | TABITHA [...] [facility] | [address] | [place], [place] | | | [facility] | [address] | [address] | | | TESTS | | | [...] [facility] | [address] | [place] [address] | | | ИРИНА ANTOINE | TABITHA [...] | + + + + + | [facility] | [address] | [place] [address] | | | SERVICES, CORE | PARK [...] | | | LABORATORY | | | ZAMBIAN | | | SERVICES, | | | [...] [facility] | [address] | [place] [address] | | | SERVICES, CORE | PARK [...] [facility] | [address] | [place] [address] | | | SERVICES, CORE | TABITHA [...] | + + + + + | [facility] | [address] | [place] [address] | | | SERVICES, CORE | TABITHA [...] | + + + + + | [facility] | [address] | [place] [address] | | | SERVICES, CORE | [address] | | | + + + + + MAGNESIUM, PLASMA (03/16/2017 3:35 AM PDT) + +-------+ + + + | Component | Value | Ref Range | Performed | Pathologist | | | | | At | Signature | + +-------+ + + + | MAGNESIUM,P | 2.1 | 1.8 - 2.5 mg/dL | INMENDY | | | LASMA | | | [...] | + + + + + | [facility] | [address] | [place] [address] | | | SERVICES, CORE | TABITHA [...] MARIA | [address] | [place], [place] | | | [facility] | [address] | [address] | | | TESTS | | | [...] | + + + + + | [facility] | [address] | [place] [address] | | | ARASH, ИРИНА | TABITHA [...] (H) | 60 - 99 mg/dL | [facility] - | | | GLUCOSE, | | [...] [facility] | [address] | [place], [place] | | | [facility] | [address] | [address] | | | TESTS | | | [...] | + + + + + | [facility] | [address] | [place] [address] | | | SERVICES, CORE | TABITHA [...] | | | LABORATORY | | | ZAMBIAN | | | SERVICES, | | | [...] | + + + + + | [facility] | [address] | [place] [address] | | | ARASH, CORE | [address] | | | + + + + + IT-LJ-CQM-HB,POC RT (03/16/2017 12:22 AM PDT) + + [...] [facility] | [address] | [place], [place] | | | [facility]ARE | [address] | [address] | | | TESTS | | | [...] [facility] | [address] | [place], [place] | | | [facility] | [address] | [address] | | | TESTS | | | [...] [facility] | [address] | [place], [place] | | | [facility] | [address] | [address] | | | TESTS | | | [...] [facility] | [address] | [place], [place] | | | [facility]ARE | [address] | [address] | | | TESTS | | | | + + + + + X-RAY PORTABLE CHEST 1 VIEW (03/15/2017 9:44 PM PDT) + + | Specimen | + + | | + + + + + | Narrative | Performed At | + + + | EXAM: AK CHEST 1 VIEW HISTORY: Evaluate new endotracheal [...] Note | + + | Service Account, [employer] - 03/16/2017 8:27 AM PDT EXAM: AK CHEST 1 | | VIEW HISTORY: Evaluate [...] [facility] | [address] | [place], [place] | | | [facility] | [facility] | [address] | | | TESTS | | | [...] (H) | 60 - 99 mg/dL | [facility] - | | | GLUCOSE, | | [...] MARIA | [address] | [place], [place] | | | JULAINN SILVA OF [facility] | [address] | [address] | | | TESTS | | | [...] [facility] | [address] | [place] [address] | | | SERVICES, CORE | PARK [...] | + + + + + | [facility] | [address] | [place] [address] | | | SERVICES, CORE | TABITHA [...] | + + + + + | [facility] | [address] | [place] [address] | | | SERVICES, ИРИНА | TABITHA [...] | Ambubag and suction available at bedside. [facility] Mac 4 used to | | | visualize airway, Grade III view with old blood and new blood | | | present in laryngopharynx plus edema. A [employer] | | | catheter was [...] [facility] | [address] | [place], [place] | | | [facility] | [address] | [address] | | | TESTS | | | | + + + + + IV-OO-NGB-HB,POC RT (03/15/2017 7:39 PM PDT) + + [...] [facility] | [address] | [place], [place] | | | [facility] | [address] | [address] | | | TESTS | | | [...] [facility] | [address] | [place], [place] | | | [facility]ARE | [address] | [address] | | | TESTS | | | [...] [facility] | [address] | [place], [place] | | | [facility]O [facility] | [facility] | [address] | | | TESTS | | | | + + + + + X-RAY PORTABLE CHEST 1 VIEW (03/15/2017 5:51 PM PDT) + + | Specimen | + + | | + + + + + | Narrative | Performed At | + + + | STUDY: AK CHEST 1 VIEW 03/15/17 17:40:08 COMPARISON: 03/15/17 [...] Interface - 03/15/2017 6:20 PM PDT STUDY: AK CHEST 1 | | VIEW 03/15/17 17:40:08COMPARISON: [...] given by: Power of | | | ip technology transactions attorney Patient identity confirmed per policy: Yes Team Pause: | | | Immediatly prior to the procedure a pause per protocol was called. A | | | pause verifies correct patient, procedure, equipment, sales support rep | | | and site/side marked [...] modified Seldinger technique (a | | | cxsyzisq-ynuk-khg-qnqxin-swdh-sbdc-ewmjnat-gej-zehacoor) was used for | | | vessel [...] Name: Ron Mckeon MRN: | | | [id number] 03/15/2017 Time: 5:26 PM Diagnosis: shock At [...] Ramon Alvarado | | | MD [place], [facility] Emergency Medicine Personal Pager: [phone] | | | | | + + + LACTATE (03/15/2017 4:49 PM PDT) + + + + + + | Component | Value | Ref Range | Performed | Pathologist | | | | | At | Signature | + + + + + + | LACTATE | 7.5 () | mmol/L | [facility] | | | | | | LABORATORY [...] | + + + + + | [facility] | [address] | [place] [address] | | | SERVICES, CORE | TABITHA [...] (H) | 60 - 99 mg/dL | [facility] - | | | GLUCOSE, | | [...] [facility] | [address] | [place], [place] | | | [facility]ARE | [address] | [address] | | | TESTS | | | [...] [facility] | [address] | [place], [place] | | | [facility]VA [facility]ARE | [address] | [address] | | | TESTS | | | | + + + + + X-RAY PORTABLE CHEST 1 VIEW (03/15/2017 4:03 PM PDT) + + | Specimen | + + | | + + + + + | Narrative | Performed At | + + + | EXAM: AK CHEST 1 VIEW 03/15/17 15:42:37 HISTORY: ECMO [...] Note | + + | Service Account, [employer] - 03/15/2017 6:18 PM PDT EXAM: AK CHEST 1 | | VIEW 03/15/17 15:42:37 [...] [facility] | [address] | [place], [place] | | | JULIANN SILVA OF CARE | [address] | [address] | | | TESTS | | | [...] MARQU[facility] | [address] | [place], [place] | | | [facility] | [address] | [address] | | | TESTS | | | [...] BLUAM | [address] | [place], [place] | | | JULIANN ISLVA OF [facility] | [address] | [address] | | | TESTS | | | [...] | + + + + + | [facility] | [address] | [place] [address] | | | SERVICES, CORE | TABITHA [...] | + + + + + | [facility] | [address] | [place] [address] | | | ARASH, ИРИНА | TABITHA [...] | + + + + + | [facility] | [address] | [place] [address] | | | SERVICES, CORE | PARK [...] | + + + + + | [facility] | [address] | [place] [address] | | | SERVICES, CORE | TABITHA [...] | | | LABORATORY | | | ZAMBIAN | | | SERVICES, | | | [...] | + + + + + | [facility] | [address] | [place] [address] | | | SERVICES, CORE | TABITHA [...] Division of Cardiothoracic Surgery | | | [facility] - Mail Code L353 [address] [facility] [address] | | | [place] [address] | | + + + X-RAY PORTABLE CHEST 1 VIEW (03/15/2017 2:32 PM PDT) + + | Specimen | + + | | + + + + + | Narrative | Performed At | + + + | STUDY: AK CHEST 1 VIEW 03/15/17 14:21:08 COMPARISON: 03/15/17. [...] Note | + + | Service Account, [employer] - 03/15/2017 2:46 PM PDT STUDY: AK CHEST 1 | | VIEW 03/15/17 14:21:08COMPARISON: [...] + + + + | PRODUCT | [id number] | | [facility] | | | UNIT [...] + + + + | EXPIRATION | [id number] | | [facility] | | | DATE [...] + + + + | BLOOD | [id number] | | [facility] | | | PRODUCT [...] [facility] | [address] | [place] [address] | | | SERVICES, | [address] [...] + + + + | PRODUCT | [id number] | | [facility] | | | UNIT [...] + + + + | EXPIRATION | [id number] | | [facility] | | | DATE [...] + + + + | BLOOD | [id number] | | [facility] | | | PRODUCT [...] [facility] | [address] | [place] [address] | | | SERVICES, | [address] [...] + + + + | PRODUCT | [id number] | | [facility] | | | UNIT [...] + + + + | EXPIRATION | [id number] | | [facility] | | | DATE [...] + + + + | BLOOD | [id number] | | [facility] | | | PRODUCT [...] [facility] | [address] | [place] [address] | | | SERVICES, | [address] [...] + + + + | PRODUCT | [id number] | | [facility] | | | UNIT [...] + + + + | EXPIRATION | [id number] | | [facility] | | | DATE [...] + + + + | BLOOD | [id number] | | [facility] | | | PRODUCT [...] | + + + + + | [facility] | [address] | [place] [address] | | | ARASH, | TABITHA ALICEA | | | | TRANSFUSION MEDICINE | | | | + + + + + VM-XY-RBL-HB,POC RT (03/15/2017 1:23 PM PDT) + + + + + + | Component | Value | Ref Range | Performed | Pathologist | | | | | At | Signature | + + + + + + | HCO3 | 19.6 (L) | 21 - 28 mmol/L | INSU - | | | ARTERIAL, | | [...] BLUAM | [address] | [place], [place] | | | JUL[facility] OF CARE | [facility] | [address] | | | TESTS | | | [...] MARIA | [address] | [place], [place] | | | [facility] | [address] | [address] | | | TESTS | | | [...] + + + | [facility] | [facility] DEPT OF | | [facility] Adult Echocardiography | CARDIOLOGY | | Laboratory [address] [place] [address] | | | [place] [address] Pt Name: | | | RON Neena MCKEON Study Date/Time 03/15/2017 / 12:54:21 | | | PMMRN: [id number] Most recent | | | prior: -Acc #: [id number] No. previous | | | echos: 0DOB: 1955 61 years Heart Rate: | | | 145 bpmHeight: Blood | | | Pressure: 90/67 mm/HgWeight: 249.0 | | | lb Gender: | | | MBSA: 2.34 m2 Order | | | ID: [id number] Salesperson Driver: Vahid Parmar [facility] | | | Referring Provider: Gaurav Castellanos [...] Report electronically signed by: | | | [id number] Yajaira Johnson MD (03/15/2017, 3:38:52 PM) Final | | | | | | | | | | | | Final | | + + + + + | Procedure Note | + + | Interface, Cardiology Results - 03/15/2017 3:38 PM [facility]ly [facility] | | [facility] [address] [place] [address] | | [place], [place] [address] Pt Name: RON Chaudhary | | MIKE Study Date/Time 03/15/2017 / 12:54:21 PMMRN: [id number] Most | | recent prior: -Acc #: [id number] No. previous echos: 0DOB: 1955 61 | | years Heart Rate: 145 bpmHeight: Blood Pressure: 90/67 | | mm/HgWeight: 249.0 lb Gender: MBSA: 2.34 m2 | | Order ID: [id number] Salesperson Driver[facility]id [facility]: | | Gaurav Castellanos Location: [employer] [...] values Report electronically signed by: | | [id number] Yajaira Johnson MD (03/15/2017, 3:38:52 PM) Final [...] | | | |Report electronically signed by: [id number] Yajaira Johnson MD (03/15/2017, 3:38:52 PM) | | | | | | | | Final | + + + + + + + | Performing | Address | City[facility] | Phone Number | | Organization | | | | + + + + + | [facility] | [address] | [place], [place] | | | CARDIOLOGY | [address] | [address] | | + + + + + X-RAY PORTABLE CHEST 1 VIEW (03/15/2017 12:46 PM PDT) + + | Specimen | + + | | + + + + + | Narrative | Performed At | + + + | STUDY: AK CHEST 1 VIEW 03/15/17 12:12:08 COMPARISON: None. [...] Note | + + | Service Account, [employer] In Interface - 03/15/2017 1:10 PM PDT STUDY: AK CHEST 1 | | VIEW 03/15/17 12:12:08COMPARISON: [...] DEPT OF | [address] | [place], [place] | | | CARDIOLOGY | [address] | [address] | | + + + + + [...] [facility] | [address] | [place] [address] | | | SERVICES, | [address] [...] [facility] | [address] | [place] [address] | | | SERVICES, | [address] [...] | + + + + + | [facility] | [address] | [place] [address] | | | ARASH, ИРИНА | [address] [...] [facility] | [address] | [place] [address] | | | SERVICES, ИРИНА | [address] [...] [facility] | [address] | [place] [address] | | | SERVICES, | [address] [...] [facility] | [address] | [place] [address] | | | SERVICES, CORE | PARK [...] | + + + + + | [facility] | [address] [facility] | [place] [address] | | | SERVICES, CORE | TABITHA [...] | + + + + + | [facility] | [address] | [place] [address] | | | SERVICES, CORE | TABITHA [...] | | | LABORATORY | | | ZAMBIAN | | | SERVICES, | | | [...] | + + + + + | [facility] | [address] | [place] [address] | | | SERVICES, CORE | [address] | | | + + + + + FY-MA-HQO-DWAINEPOC RT (03/15/2017 12:16 PM PDT) + + [...] [facility] | [address] | [place], [place] | | | [facility] | [address] | [address] | | | TESTS | | | [...] of unspecified type of vessel, | | chicken ranch or graft | + + | Tongue [...] 5:37 | | | | | dose, [facility] 03/29/17 at 0530 | | AM PDT [...] | | | | ONCE, 1 dose, [facility] 03/19/17 at 1415 | | PM [...] | | | | ONCE, 1 dose, [facility] 03/20/17 at | | AM PDT | [...] 10:04 | | | | | dose, [facility] 03/22/17 at 1000 | | AM PDT [...] | | | | First dose on [facility] 03/19/17 at | | AM PDT [...] 4:45 | | | | | dose, [facility] 03/19/17 at 1630 | | PM PDT | | | | + +-------+ +-------+---+---+ +---+---+ | | | +---+---+ + +-------+ +-------+---+---+ | furosemide (LASIX) injection 20 | Given | 03/20/20 | 20 mg | | | | mg 20 mg, intravenous, ONCE, 3:07 | | | | | dose, [facility] 03/20/17 at 0400 | | AM PDT [...] 10:20 | | | | | dose, [facility] 03/19/17 at 1100 | | AM PDT [...] | | | | | | Starting [facility] 03/19/17 at 1900, | | | [...] PDT | | | | | Until [facility] 04/02/17 at 2030, | | | [...] | | | | ONCE, 1 dose, [facility] 03/15/17 at 1815 | | PM PDT [...] | | | | | | Until [facility] 04/02/17 at 2030, severe | | [...] | | | | | 1 dose, [facility] 03/18/17 at 0130 | | AM [...]
--- OUTSIDE RECORDS SUMMARY | ~2019-02-08 | XMS | Encounter Summary ---
Demographics + + + | Address | [address] | | | [place] [address] | + + + | Home Phone [...] + + + | Author | [facility] | + + + | Organization | [facility] | + + + | Address | Unknown | + + + | Phone | Unavailable | + + + Support + + + + + | Name | Relationship | Address | Phone | + + + + + | [place] Will | ECON | [address] | | | | | [place] [address] | | + + + + + Care Team Providers + +------+ + | Care Civil Manager Name | Role | Phone | [...] | | 2011 | | Center at [facility] [address] | [address] | | | | | [place] [address] | [place], [place] | | | | | Mailcode: CH8N | [address] | | | | | [facility] | [phone] | | | | | and Healing, [address] | | | | | | Floor [place], [place] | | | | | | [address] | | | | | | [phone] | | | +--------+ + + + [...]
--- OUTSIDE RECORDS SUMMARY | ~2019-02-08 | XMS | Encounter Summary ---
Demographics + + + | Address | [address] | | | [place] [address] | + + + | Home Phone [...] | | | | | [place] [address] | | + + + + + Care Team Providers + +------+ + | Care Generator Repairer Name | Role | Phone | [...] | DECANNULATION | | 2017 | | [facility] | [address] | | | | | Admitting Desk | Tabitha Alicea [place], | | | | | Located on the | [place] [address] | | | | | floor [address] [facility] | [phone] | | | | | [address] | | | | | | [place], [place] | | | | | | [address] | | | +--------+---------+ + + + [...] 2:26 PM PDT CLINICAL HOSPITALIST DISCHARGE SUMMARY [facility] Discharging Provider: Aria Rojas MD [...] follow up ludmila miller with a local transmission calibration engineer in [place]. #Acute cardiogenic shock in the setting ofSTEMI [...] 44 to 32 during first day at [facility] , with addition decline to 24 [...] (noted on o utside records). Patient on Clovis 10/325 q8 as outpatient. Was receiving scheduled [...] Number [facility] Yes [phone] [place] [address] Medina Roger RN 04/02/2017 11:31 Medina Roger RN, 04/02/2017 11:28 AM: Spoke with Latricia, 7 day auth # [id number] has been provided. Contacted Tanisha at facility , arranging anticipated medicaid transport by stretcher at 2 pm today. Spoke with patient and souse concerning dc; they are both in agreement. Medina Roger RN, 04/02/2017 9:20 AM: Contacted Latricia Landry [phone] referencing auth# for SNF placement. Medina Roger RN, 04/01/2017 11:42 AM: Spoke with Malathi [phone], at facility admissions. Patient is accepted to facility. Prov ided information for information plumbing assembler with [facility] Latricia Landry [phone], Tanisha moncada pursue auth and get back to me. F&MS working with patient and family to add Medicaid ser vices to benefits. When added patient will have travel benefit. CM contacted Shahab Holman re IMT ([employer]) training. Tamia Van, RN, 03/30/2017 1:21 PM: Received VM from Emily Terrell CM with [facility] to send referral to this location . Referral made, awaiting response. Follow Up: Schedule the following appointment(s) when you get home Follow up with [facility] . Specialties: [facility] Facility, Intermediate Care Facility Contact information [address] [place] [phone] Follow up with LAUREN CHESTER MD. Go on 04/07/2017. Specialty: Cardiology Why: at 8:30 AM to establish Cardiology follow up Contact information [facility] [address] [address] Aria Rojas MD Division of Hospital Medicine [facility] I spent 60 minutes on discharge activities on the day of discharge, including counseling of the patient and his regarding his discharge plan and in coordination of care on the ia rd with nursing, pharmacy, and Heart Failure.Electronically [...] and chronic pain who was transferred to [facility] on 03/15 s/p STEMI with cardiogeni [...] will need Life Vest follow up with transmission calibration engineer in [place] on discharge - appr [facility] cardiology assistance with coordinating. -Will f/u further [...] hematoma, but possibly some candidal infection/intertrigo. On Clovis 10 Q8H as an outp atient. -Continue [...] 44 to 32 during first day at [facility], with addition decline to 24 th [...] MD Division of Hospital Medicine [facility] Pager [phone] I spent 36 minutes on the patient [...] and chronic pain who was transferred to [facility] on 03/15 s/p STEMI with cardiogeni [...] will need Life Vest follow up with transmission calibration engineer in [place] on discharge - appr [facility] cardiology assistance with coordinating. Hyperkalemia Resolved with [...] hematoma, but possibly some candidal infection/interrigo. On Clovis Q8H as an outpa tient. -Continue nystatin [...] discharge. -CM looking for skilled placement in [place] near patient's home; appreciate assistance At risk for malnutrition Very little PO intake but reportedly improving. Previously had dobhoff feeding tube in the CVICU.Nutrition assistance appreciated. -Calorie count ongoing -Encouraging PO intake Normocytic anemia Hct dropped abruptly from 44 to 32 during first day at [facility], with addition decline to 24 th [...] MD Division of Hospital Medicine [facility] Pager [phone] I spent 36 minutes on the patient encounter today, >50% in counseling of the patient's on the above plan of care and in coordination of care on the arizmendi with nursing and Heart Fa ilure. Ariana Ivy DO - 03/30/2017 5:49 PM PDT CLINICAL HOSPITALIST SERVICE PROGRESS NOTE PATIENT'S NAME/MRN: Ron Mckeon/[id number] HOSPITAL DAY: #15 24-HOUR EVENTS & SUBJECTIVE: -patient complained of typical anginal chest pain and had STEMI code last night, anterior S T elevation on serial EKGs, given 325mg ASA, started on heparin drip (had been turned off fo r JAVON thrombus yesterday afternoon with warfarin therapeutic), patient went to the earthmoving labourer -on angiography, interventionalists noted "patent stent [...] daily - Patient will follow up with transmission calibration engineer in [place] on discharge; appreciate cardiolo gy assistance with [...] stenosis (noted on o utside records, on Clovis q8 as outpatient) Improved today -continue oxycodone [...] discharge. -CM looking for skilled placement in [place] near patient's home; appreciate assistance #Risk for malnutrition Very little PO intake, improving today. Previously had dobhoff feeding tube in the CVICU.Nu trition assistance appreciated. -Calorie count ongoing -Encouraging PO intake #Anemia, normocytic Pt noted to have anemia on H&P. Hct dropped abruptly from 44 to 32 during first day at [facility] , with addition decline to 24 [...] assistance Barriers for DC: delivery/approval of lifevest, [facility] bed Ariana Bose DO Plastic Parts Fabricatorformula maker Clinical Hospitalist and Medicine Teaching Service Division of Hospital Medicine [facility] Pager [phone] [facility] DEPARTMENT: Hosp- [id number] Place of Service: - Date of Service: 03/26/2017 CSN: [id number] Modifiers:GC Resident Involved: Yes Suggested CPT: 85768 Subsequent Visit Detailed/High complexity 35 min Cristi [...] patient's significant recent MA, we activated the earthmoving labourer. Patient received 325 mg ASA at bedside and was briefly on heparin which has since been disc ontinued. Per cardiology will continue daily 81 mg ASA, plavix and warfarin. Continue to t rend troponins as well. I spent 30 minutes with this patient with >50% of the time evaluating patient at the [facility] on numerous occasions, evaluating studies and coordinating care w/ cardiology.Electronical ly signed by Ivette Chaudhry MD at 03/30/2017 6:24 AM Gerson Oseguera MD - 03/30/2017 4:31 AM PDTCardiology Preliminary Procedure Note (Full report to follow) Primary Care Provider: Jamal Guerrero MD Referring Provider: No Referring Provider Per Patient Carbon Plant Grinder Staff: Katarina Ngo M.D. Procedure(s): Coronary Angiography [...] None Complications: None Hemostasis: Manual compression in earthmoving labourer. Site: [facility] Recommendations: Patient Status: Inpatient Usual post cath care. Ariana Ivy D O - 03/29/2017 9:30 AM PDT CLINICAL HOSPITALIST SERVICE PROGRESS NOTE PATIENT'S NAME/MRN: Ron Mckeon/[id number] HOSPITAL DAY: #14 24-HOUR EVENTS & SUBJECTIVE: [...] 2 Units, 2 Units, subcutaneous, Q12H (Scheduled), Ginawi geno Alvarado MD, 2 Units at 03/28/172206 [...] tablet 25 mg, 25 mg, oral, DAILY, Gauarv Hobbs PA-C, 25 mg at 03/29/17 0846 [...] 34 g, 34 g, oral, TID PRN, Garuav Hobbs PA-C probiotic yogurt (M[employer]IN[employer]S YOGURT), , [...] failure involvement and recommendations #CAD, s/p STEMI #NAY x 2 (LM/LAD, LCx) Pt presented to [...] stenosis (noted on o utside records, on Clovis 10/ q8 as outpatient) -continue oxycodone 10mg [...] 44 to 32 during first day at [facility] , with addition decline to 24 [...] arm, midline left arm Ariana Bose DO Plastic Parts Fabricatorformula maker Clinical Hospitalist and Medicine Teaching Service Division of Hospital Medicine [facility] Pager [phone] [facility] DEPARTMENT: Hosp- [id number] Place of Service: - Date of Service: 03/26/2017 CSN: [id number] Modifiers:GC Resident Involved: Yes Suggested CPT: 82687 Subsequent Visit Detailed/High complexity 35 min Ariana Ivy DO - 03/28/2017 8: 06 AM PDT CLINICAL HOSPITALIST SERVICE PROGRESS NOTE PATIENT'S NAME/MRN: Ron Mckeon/[id number] HOSPITAL DAY: #13 24-HOUR EVENTS & SUBJECTIVE: [...] stenosis (noted on o utside records, on Clovis 10 q8 as outpatient) Improving L groin [...] 44 to 32 during first day at [facility] , with addition decline to 24 [...] arm, midline left arm Ariana Bose DO [employer] Fabricatorformula maker Clinical Hospitalist and Medicine Teaching Service Division of Hospital Medicine [facility] Pager [phone] [facility] DEPARTMENT: Hosp- [id number] Place of Service: - Date of Service: 03/26/2017 CSN: [id number] Modifiers:GC Resident Involved: Yes Suggested CPT: 22287 Subsequent Visit Detailed/High complexity 35 min Ariana [...] probiotic yogurt (M[employer] YOGURT), , oral, BID, Jsoe Ramon Alvarado MD, 1 each at 03/26/17 [...] 44 to 32 during first day at [facility] , with addition decline to 24 [...] arm, midline left arm Ariana Bose DO Pl[employer] Fabricatorformula maker Clinical Hospitalist and Medicine Teaching Service Division of Hospital Medicine [facility] Pager [phone] [facility] DEPARTMENT: Hosp- [id number] Place of Service: - Date of Service: 03/26/2017 CSN: [id number] Modifiers:GC Resident Involved: Yes Suggested CPT: 86914 Subsequent Visit Detailed/High complexity 35 min Chapis [...] 44 to 32 during first day at [facility] , with addition decline to 24 [...] arm, midline left arm Ariana Bose DO Pl[employer] Fabricatorformula maker Clinical Hospitalist and Medicine Teaching Service Division of Hospital Medicine [facility] Pager [phone] [facility] DEPARTMENT: Hosp- [id number] Place of Service: - Date of Service: 03/26/2017 CSN: [id number] Modifiers:GC Resident Involved: Yes Suggested CPT: 96262 Subsequent Visit Detailed/High complexity 35 min Wan Cano MD - 03/25/2017 3:07 PM PDT . Cardiovascular Intensive Care Unit Attending Progress Note CVICU D2 Assigned #[id number] ICU Admission Reason Most Recent Value ICU [...] artery. ANY X2 placed in outs surinder earthmoving labourer along with IABP. Arrived in cardiogenic [...] Pager Mellisa Haji MD Admitting Provider Cardiology 73573 Zelalem Del Toro MD ICU PM Attending Anesthesiology 22762 Code Status Code Status Full Code The Advanced Care Note for this patient can be found under the notes tab in chart review. Quality section Reardon necessity reviewed: Hourly/Accurate measurement of urinary output for clinical manage ment of critically ill patients Wan Deleon MD, JOHN, ERVIN Cardiovascular Intensive Care Unit [address] [address] I have spent a total of 38 [...] xceptions/additions as noted. Date of Service: 03/25/2017 [facility] DEPARTMENT: ANE ICU CARDIAC Place of Service:- Inpatient CSN: [id number] Suggested Modifier: GC - Resident Involved Suggested CPT: TO CHAIN SAW OPERATOR Jose Ramon Khan MD - 03/24/2017 10:54 AM PDT . Cardiovascular Intensive Care Unit Team Progress Note CVICU D2 Assigned #[id number] ICU Admission Reason Most Recent Value ICU [...] artery. ANY X2 placed in outs surinder earthmoving labourer along with IABP. Arrived in cardiogenic [...] & Plan Patient went into VFib during earthmoving labourer procedure at [facility]. Was shocked 17 times Targeted temperature [...] edema. Patient was difficult intubation at outside earthmoving labourer. -secretions improving, cough strong -s/p 7 [...] Pager Mellisa Haji MD Admitting Provider Cardiology 84503 Zelalem Del Toro MD ICU PM Attending Anesthesiology 99717 The Advanced Care Note for this patient [...] Ramon Alvarado MD Author:Jose Ramon Alvarado MD [address] [address]Mrrjxfrwgxdljr signed by Jose Ramon Alvarado MD at 03/24/2017 11:00 AM Wan Cano MD - 03/24/2017 9:47 AM PDTFormatting of this note might be diff erent from the original. Cardiovascular Intensive Care Unit Attending Progress Note CVICU D2 Assigned #[id number] ICU Admission Reason Most Recent Value ICU [...] artery. ANY X2 placed in outs surinder earthmoving labourer along with IABP. Arrived in cardiogenic [...] Pager Mellisa Haji MD Admitting Provider Cardiology 13680 Zelalem Del Toro MD ICU PM Attending Anesthesiology 67595 Code Status Code Status Full Code The Advanced Care Note for this patient can be found under the notes tab in chart review. Quality section Reardon necessity reviewed: Hourly/Accurate measurement of urinary output for clinical manage ment of critically ill patients Wan Deleon MD, JOHN, ERVIN Cardiovascular Intensive Care Unit [address] [address] I have spent a total of 42 [...] xceptions/additions as noted. Date of Service: 03/24/2017 [facility] DEPARTMENT: ANE ICU CARDIAC Place of Service:- Inpatient CSN: [id number] Suggested Modifier: GC - Resident Involved Suggested CPT: TO CHAIN SAW OPERATOR Author:Wan Deleon Md, MD [address] [address]Nnloacercongxi signed by Wan Deleon MD at 03/24/2017 9:49 AM PDTToTamia lieberman PA-C - 03/23/2017 11:54 PM PDTFormatting of this note might be diff erent from the original. Cardiovascular Intensive Care Unit Clinical Update Note Team: D2 Team Pager: [phone] Attending: Katey Pt Name: Ron Mckeon ID: Abbreviated HPI Abbreviated HPI / Daily Assessment Ron Mckeon is a 61 year old man with acute cardiogenic shock in the setting of acu te STEMI from thrombosed left main coronary artery. Initially had lesion in proximal LAD and distal LM, but then acutely thrombosed his left main coronary artery. ANY X2 placed in outs surinder earthmoving labourer along with IABP. Arrived in cardiogenic [...] Unit Team Progress Note CVICU D2 Assigned #[id number] ICU Admission Reason Most Recent Value ICU [...] artery. ANY X2 placed in outs surinder earthmoving labourer along with IABP. Arrived in cardiogenic [...] & Plan Patient went into VFib during earthmoving labourer procedure at [facility]. Was shocked 17 times Targeted temperature [...] edema. Patient was difficult intubation at outside earthmoving labourer. -fevering nightly, cultures negative, WBC stable [...] Pager Mellisa Haji MD Admitting Provider Cardiology 25310 The Advanced Care Note for this patient [...] Ramon Alvarado MD Author:Jose Ramon Alvarado MD [address] [address] [place] [address]Ymzkbxqmfdtvor signed by Jose Ramon Alvarado MD at 03/23/2017 11:41 AM Wan Cano MD - 03/23/2017 9:51 AM PDTFormatting of this note might be diff erent from the original. Cardiovascular Intensive Care Unit Attending Progress Note CVICU D2 Assigned #[id number] ICU Admission Reason Most Recent Value ICU [...] artery. ANY X2 placed in outs surinder earthmoving labourer along with IABP. Arrived in cardiogenic [...] Pager Mellisa Haji MD Admitting Provider Cardiology 57021 Code Status Code Status Full Code The [...] JOHN, ERVIN Cardiovascular Intensive Care Unit [address] [address] I have spent a total of 44 [...] xceptions/additions as noted. Date of Service: 03/23/2017 [facility] DEPARTMENT: [facility] ICU CARDIAC Place of Service:- Inpatient CSN: [id number] Suggested Modifier: GC - Resident Involved Suggested CPT: TO CHAIN SAW OPERATOR Tamia De La Paz PA-C - 03/22/2017 7:58 PM PDT . Cardiovascular Intensive Care Unit Clinical Update Note Team: D2 Team Pager: [phone] Attending: Abdulaziz Merrill Name: Ron Mckeon ID: [...] Unit Attending Progress Note CVICU D2 Assigned #[id number] ICU Admission Reason Most Recent Value ICU [...] Pager Mellisa Haji MD Admitting Provider Cardiology 09014 Code Status Code Status Full Code Quality section A-Line necessity reviewed: Crpf-er-fqxb blood pressure monitoring Reardon necessity reviewed: Hourly/Accurate [...] Date of Service: 03/22/2017 Author:Anurag Ashby MD [address] [address]Zzpfcrdzoyskau signed by Anurag Ashby MD at 03/22/2017 11:07 AM P Macho Sellers MD - 03/22/2017 11:00 AM PDT Cardiovascular Intensive Care Unit Team Progress Note CVICU D2 Assigned #[id number] ICU Admission Reason Most Recent Value ICU [...] & Plan Patient went into VFib during earthmoving labourer procedure at [facility]. Was shocked 17 times Targeted temperature [...] edema. Patient was difficult intubation at outside earthmoving labourer. -vanc zosyn stopped 03/17 -fever 38.3 [...] Pager Mellisa Haji MD Admitting Provider Cardiology 23527 This patient does not have an Advanced Care Note for this Admission. Please use the Goal of care section of your ICU navigator to document the advanced care discussion. Quality section A-Line necessity reviewed: Hros-ti-wglz blood pressure monitoring Reardon necessity reviewed: Hourly/Accurate measurement of urinary output for clinical manage ment of critically ill patients FAST HUG Feeding: Tube Feeds: Replete @ 55 mL/hr Analgesia: APAP, hydromorphone PRN Sedation: N/A Thromboprophylaxis: Heparin infusion Head of Bed: Head of Bed >30 degrees Ulcer Prophylaxis: Famotidine Glycemic Control: insulin infusion Created by Macho Gaytan MD Author:Macho Gaytan MD [address] [address]Sdoucxxwxsnbes signed by Macho Gaytan MD at 03/23/2017 12:35 PM PDTT Tamia leon PA-C - 03/21/2017 7:02 PM PDTFormatting of this note might be different f rom the original. Cardiovascular Intensive Care Unit Clinical Update Note Team: D2 Team Pager: [phone] Attending: Abdulaziz Merrill Name: Ron Mckeon ID: [...] Opens eyes, nods head. Follows commands for skinning machine feeder and Plan: Hospital Problems Priority POA Head/Neck [...] Unit Team Progress Note CVICU D2 Assigned #[id number] ICU Admission Reason Most Recent Value ICU [...] & Plan Patient went into VFib during earthmoving labourer procedure at [facility]. Was shocked 17 times Targeted temperature [...] edema. Patient was difficult intubation at outside earthmoving labourer. -vanc zosyn stopped 03/17 -fever 38.3 [...] Pager Mellisa Haji MD Admitting Provider Cardiology 20177 This patient does not have an Advanced Care Note for this Admission. Please use the Goal of care section of your ICU navigator to document the advanced care discussion. Quality section A-Line necessity reviewed: Wxia-dc-xfjn blood pressure monitoring CVC necessity reviewed: Hemodynamic [...] by Macho Gaytan MD Author:Macho Gaytan MD [address] [id number] signed by Macho Gaytan MD at 03/21/2017 1:43 PM PDTM Anurag coates MD - 03/21/2017 12:22 PM PDT Cardiovascular Intensive Care Unit Attending Progress Note CVICU D2 Assigned #[id number] ICU Admission Reason Most Recent Value ICU [...] Pager Mellisa Haji MD Admitting Provider Cardiology 72026 Code Status Code Status Full Code Quality section A-Line necessity reviewed: Tstb-um-dhau blood pressure monitoring CVC necessity reviewed: Plan [...] Date of Service: 03/21/2017 Author:Anurag Ashby MD [address] [address] [place] [address]Fjsvrzzadtxiyb signed by Anurag Ashby MD at 03/21/2017 12:22 PM P Jose Ramon Coburn MD - 03/20/2017 12:36 PM PDTFormatting of this note might be differen t from the original. Cardiovascular Intensive Care Unit Team Progress Note CVICU D2 Assigned #[id number] ICU Admission Reason Most Recent Value ICU [...] & Plan Patient went into VFib during earthmoving labourer procedure at [facility]. Was shocked 17 times Targeted temperature [...] edema. Patient was difficult intubation at outside earthmoving labourer. -vanc zosyn stopped 03/17 -fever 38.3 [...] Pager Mellisa Haji MD Admitting Provider Cardiology 84333 Quality section A-Line necessity reviewed: Zxdh-ek-rjke blood pressure monitoring CVC necessity reviewed: Hemodynamic [...] Ramon Alvarado MD Author:Jose Ramon Alvarado MD [address] [address]Ieijxyqaveazvq signed by Jose Ramon Alvarado MD at 03/20/2017 12:49 PM PDTMoulton, Anurag Soni MD - 03/20/2017 12:18 PM PDTFormatting of this note might be differen t from the original. Cardiovascular Intensive Care Unit Attending Progress Note CVICU D2 Assigned #[id number] ICU Admission Reason Most Recent Value ICU [...] Pager Mellisa Haji MD Admitting Provider Cardiology 98201 Code Status Code Status Full Code Quality section A-Line necessity reviewed: Nclw-im-uxjv blood pressure monitoring CVC necessity reviewed: Medication [...] Date of Service: 03/20/2017 Author:Anurag Ashby MD [address] [address]Ouzdyzmagbjlcu signed by Anurag Ashby MD at 03/20/2017 12:18 PM P Raul Conte MD - 03/19/2017 11:01 PM PDTFormatting of this note might be different fro m the original. Cardiovascular Intensive Care Unit Attending Progress Note CVICU D2 Assigned #[id number] ICU Admission Reason Most Recent Value ICU [...] Pager Mellisa Haji MD Admitting Provider Cardiology 06244 Code Status Code Status Full Code Quality section A-Line necessity reviewed: Otvu-gv-pdhh blood pressure monitoring CVC necessity reviewed: Hemodynamic [...] Date of Service: 03/19/2017 Author:Raul Wei MD [address] [address] [place] [address]Puowuypkgzshdi signed by Raul Wei MD at 03/19/2017 11:01 PM PD TMillerJose Ramon MD - 03/19/2017 4:49 PM PDT Cardiovascular Intensive Care Unit Team Progress Note CVICU D2 Assigned #[id number] ICU Admission Reason Most Recent Value ICU [...] & Plan Patient went into VFib during earthmoving labourer procedure at [facility]. Was shocked 17 times Targeted temperature [...] edema. Patient was difficult intubation at outside earthmoving labourer. -vanc zosyn stopped 03/17 -fever 38.3 [...] Pager Mellisa Haji MD Admitting Provider Cardiology 98887 Quality section A-Line necessity reviewed: Sktz-zb-jzub blood pressure monitoring CVC necessity reviewed: Hemodynamic monitoring Reardon necessity reviewed: Hourly/Accurate measurement of urinary output for clinical manage ment of critically ill patients FAST HUG Feeding: TFs Analgesia: multimodal Sedation: propofol Thromboprophylaxis: Heparin infusion Head of Bed: Head of Bed >30 degrees Ulcer Prophylaxis: protonix Glycemic Control: insulin infusion Created by Jose Ramon Alvarado MD Author:Jose Ramon Alvarado MD [address] [address]Xzjdqfrtsjoyky signed by Jose Ramon Alvarado MD at 03/19/2017 4:54 PM Lee Fernandez MD - 03/19/2017 2:22 PM PDTFormatting of this note might be different fr om the original. . Extracorporeal Life Support Service Daily Progress Note Pager #[phone] Type: Veno-Arterial (CPT 71844 or [phone]) Date of insertion: 03/15/2017 Diagnosis:Cardiogenic shock Dressing [...] Unit Attending Progress Note CVICU D2 Assigned #[id number] ICU Admission Reason Most Recent Value ICU [...] Pager Mellisa Haji MD Admitting Provider Cardiology 96062 Code Status Code Status Full Code Quality section A-Line necessity reviewed: Gqzi-zy-ytyw blood pressure monitoring CVC necessity reviewed: Medication [...] Date of Service: 03/19/2017 Author:Anurag Ashby MD [address] P DTJose Ramon Alvarado MD - 03/18/2017 12:56 PM PDTFormatting of this note might be differen t from the original. Cardiovascular Intensive Care Unit Team Progress Note CVICU D2 Assigned #[id number] ICU Admission Reason Most Recent Value ICU [...] & Plan Patient went into VFib during earthmoving labourer procedure at [facility]. Was shocked 17 times Targeted temperature [...] edema. Patient was difficult intubation at outside earthmoving labourer. -vanc zosyn stopped today Abnormal CK [...] Pager Mellisa Haji MD Admitting Provider Cardiology [id number] Quality section A-Line necessity reviewed: Rird-kw-ivio blood pressure monitoring CVC necessity reviewed: Hemodynamic monitoring Reardon necessity reviewed: Hourly/Accurate measurement of urinary output for clinical manage ment of critically ill patients FAST HUG Feeding: trickle feeds Analgesia: multimodal Sedation: propofol Thromboprophylaxis: Heparin infusion Head of Bed: Head of Bed >30 degrees Ulcer Prophylaxis: nexium Glycemic Control: insulin infusion Created by JoseR amon Alvarado MD Author:Jose Ramon Alvarado MD [address] [phone] signed by Jose Ramon Alvarado MD at 03/18/2017 1:27 PM PDTMoulton, Anurag Soni MD - 03/18/2017 11:56 AM PDTFormatting of this note might be differen t from the original. Cardiovascular Intensive Care Unit Attending Progress Note CVICU D2 Assigned #[id number] ICU Admission Reason Most Recent Value ICU [...] Pager Mellisa Haji MD Admitting Provider Cardiology 77397 Code Status Code Status Full Code Quality section A-Line necessity reviewed: Lrsf-vp-soai blood pressure monitoring CVC necessity reviewed: Medication [...] Date of Service: 03/18/2017 Author:Anurag Ashby MD [address] [address]Ammliiosjvbroi signed by Anurag Ashby MD at 03/18/2017 11:59 AM Lee Prince MD - 03/18/2017 11:37 AM PDTFormatting of this note might be different from nissa suh original. . Extracorporeal Life Support Service Daily Progress Note Pager #[phone] Type: Veno-Arterial (CPT 00055 [place] 27[address]) Diagnosis:Cardiogenic shock Dressing changed: no Dressing Changed [...] Life Support Service Daily Progress Note Pager #[phone] Type: Veno-Arterial (CPT 68017 or [address]) Date of insertion: 03/15/2017 Diagnosis:Cardiogenic shock Dressing [...] Unit Attending Progress Note CVICU D2 Assigned #[id number] ICU Admission Reason Most Recent Value ICU [...] Pager Mellisa Haji MD Admitting Provider Cardiology 92894 Quality section A-Line necessity reviewed: Fxdf-df-xtec blood pressure monitoring CVC necessity reviewed: Rapid [...] Date of Service: 03/17/2017 Author:Raul Wei MD [place] [address] [place] [address]Lgceqdshranvbp signed by Raul Wei MD at 03/17/2017 9:20 PM PD Anurag Kaba MD - 03/17/2017 1:58 PM PDTFormatting of this note might be different fro m the original. Cardiovascular Intensive Care Unit Attending Progress Note CVICU D2 Assigned #[id number] ICU Admission Reason Most Recent Value ICU [...] Pager Mellisa Haji MD Admitting Provider Cardiology 52134 Quality section A-Line necessity reviewed: Wyab-co-gtjy blood pressure monitoring CVC necessity reviewed: Medication [...] Date of Service: 03/17/2017 Author:Anurag Ashby MD [address] [address]Hhybwhqwatwbfk signed by Anurag Ashby MD at 03/17/2017 2:00 PM P Mauri Calderon - 03/17/2017 1:01 PM PDTTransthoracic echocardiogram completed. Final r eport to follow. 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 Was shocked 17 times Targeted temperature [...] edema. Patient was difficult intubation at outside earthmoving labourer. -vanc zosyn stopped today Abnormal CK [...] Pager Mellisa Haji MD Admitting Provider Cardiology 04335 This patient does not have an Advanced Care Note for this Admission. Please use the Goal of care section of your ICU navigator to document the advanced care discussion. Quality section A-Line necessity reviewed: Yrwq-gh-ezzw blood pressure monitoring CVC necessity reviewed: Hemodynamic monitoring Reardon necessity reviewed: Hourly/Accurate measurement of urinary output for clinical manage ment of critically ill patients FAST HUG Feeding: Tube Feeds Analgesia: apap, oxy, hm Sedation: propofol Thromboprophylaxis: Heparin infusion Head of Bed: Head of Bed Flat Ulcer Prophylaxis: Pantoprazole Glycemic Control: insulin infusion Created by Teddy Kee Do, MS [facility] DEPARTMENT: [facility] ICU CARDIAC Place of Service:- Inpatient CSN: [id number] Suggested Modifier: GC - Resident Involved Suggested CPT: TO CHAIN SAW OPERATOR Author:Teddy Kee Do, MS [address] [address]Aaflcunzbdwghc signed by Teddy Kee DO, MS at 03/17/2017 6:35 PM PDTRaul Wei MD - 03/16/2017 7:38 PM PDT Cardiovascular Intensive Care Unit Attending Progress Note CVICU D2 Assigned #[id number] ICU Admission Reason Most Recent Value ICU [...] Pager Mellisa Haji MD Admitting Provider Cardiology 43181 Quality section A-Line necessity reviewed: Gwqn-az-xlyz blood pressure monitoring CVC necessity reviewed: Rapid [...] Date of Service: 03/16/2017 Author:Raul Wei MD [facility] [address] 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 Was shocked 17 times Now on [...] edema. Patient was difficult intubation at outside earthmoving labourer. -bridget retana for now Physical Exam [...] Pager Mellisa Haji MD Admitting Provider Cardiology 77980 Quality section A-Line necessity reviewed: Lpah-dq-vjbp blood pressure monitoring CVC necessity reviewed: Hemodynamic [...] Created by Jose Ramon Alvarado MD Author:Jose aRmon Alvarado MD [address] [address]Hdmxagsocuklco signed by Jose Ramon Alvarado MD at [...] Unit Attending Progress Note CVICU D2 Assigned #[id number] ICU Admission Reason Most Recent Value ICU [...] ICU Day #2 after being transferred from [place] in [place] in acute cardiogenic archie ck following an anterior STEMI. Upon arrival to [facility], decision was made to go emergently [...] Pager Mellisa Haji MD Admitting Provider Cardiology 63919 Quality section A-Line necessity reviewed: Vlgc-zr-rmhj blood pressure monitoring CVC necessity reviewed: Hemodynamic [...] Date of Service: 03/16/2017 Author:Anurag Ashby MD [address] [address]Zhbpsxxzgouour signed by Anurag Ashby MD at 03/16/2017 1:23 PM Lee Prince MD - 03/16/2017 9:41 AM PDTFormatting of this note might be different from t vikash original. . Extracorporeal Life Support Service Daily Progress Note Pager #[phone] Type: Veno-Arterial (CPT 97167 [place] [address]) Diagnosis:Cardiogenic shock Dressing changed: no Dressing Changed [...] Clinical Update Note Team: D2 Team Pager: [phone] Attending: Abdulaziz Pt Name: Ron Mckeon ID: [...] Date of Service: 03/16/2017 Mirna Berumen PA-C [facility] DEPARTMENT: [facility] ICU CARDIAC Place of Service:- Inpatient CSN: [id number] Suggested Modifier: None Suggested CPT: TO CHAIN SAW OPERATOR Mirna Berumen PA-C Everardo Valladares MD - 03/15/2017 9:04 PM PDT Cardiovascular Intensive Care Unit Attending Progress Note CVICU D2 Assigned #[id number] ICU Admission Reason Most Recent Value ICU Admission reason Cardiogenic Shock filed at 03/15/2017 1531 Hospital admission dx: left anterior descending artery occlusion, needs cabg Days in ICU Days in Hospital Medical Decision Making ICU Day #1 after being transferred from [place] in [place] in acute cardiogenic archie ck following an anterior STEMI. Upon arrival to [facility], decision was made to go emergently [...] Pager Mellisa Haji MD Admitting Provider Cardiology 84521 Quality section A-Line necessity reviewed: Vbim-tu-fkqc blood pressure monitoring CVC necessity reviewed: Hemodynamic [...] and the recent imaging available. Seen with PA/APPLIANCE SERVICE TECHNICIAN Winston Cole. Please see their note for details. I reviewed the documented findings, all data and the recent imaging available. Date of Service: 03/15/2017 Author:Everardo Cintron MD [address] [address]Mqssinpcwiwjeg signed by Everardo Cintron MD at 03/15/2017 9:[address] - 03/15/2017 2:11 PM PDTTransthoracic echocardiogram completed. Final r eport to follow. atrick Ruiz MD,MPH - 03/15/2017 2:00 PM PDT . Extracorporeal Life Support Service Consult Service Note Pager #[phone] Date: 03/15/17 Author: Patrick Ruiz MD,MPH Consulting Attending: Mellisa Haji MD Reason for Consult: VA ECMO Consideration HPI: 61 year old male who presents this afternoon to [facility] in acute cardiogenic shock second maciej to STEMI / thrombosed L main coronary artery. He was transferred from [place]. His symptoms started this morning around 3am and was seen in [place], [place]. He was diagnosed w ith an anterior STEMI and transferred to the earthmoving labourer in [place], [place]. He was found to h ave [...] pressors (epinephrine and dopamine). On arrival to [facility], he was in profound cardiogenic shock and hypoxic. His MAP was in the 40s. He was tach ycardic into the 150s. IABP was increased to 1:2. Past Medical History: Past Medical History: Diagnosis Date Cardiogenic shock ([facility]) 03/15/2017 Coronary artery disease 03/15/2017 Hypercholesterolemia [...] from cardiogenic shock. Patrick Ruiz MD, MPH kiln loader Trauma, Critical Care & Acute Care Surgery [facility] onies, Patrick Sexton MD,MPH - 03/15/2017 1:48 PM PDT . . Extracorporeal Life Support Service Initiation Note Pager #[phone] Date of service: 03/15/2017 Author: Patrick Ruiz Md,Mph ECMO Type: Veno-Arterial ([place] 89370 [place] [address]) Oxygenation index FiO2: 100 MAP: 22 Diagnosis:Cardiogenic [...] old male who presents this afternoon to [facility] in acute cardiogenic shock secondary to [...] | + +--------+ + + + | AI-CY-IWD-HB,POC RT | Routin | 03/19/2017 | ST [...] | + +--------+ + + + | CA ECMO REV | Routin | 03/19/2017 | [...] +---+--------+ + +--------+ + + + | GB-MO-EDC-HB,POC RT | Routin | 03/19/2017 | ST [...] | + +--------+ + + + | NJ-HO-PTH-HB,POC RT | Routin | 03/19/2017 | ST elevation | Results for this | | | e | 10:06 AM | myocardial | procedure are in the | | | | PDT | infarction involving | results section. | | | | | left main coronary | | | | | | artery (HCC) | | + +--------+ + + + | TY-UA-SWW-HB,POC RT | Routin | 03/19/2017 | ST [...] | + +--------+ + + + | PZ-OL-TPJ-HB,POC RT | Routin | 03/17/2017 | ST [...] | + +--------+ + + + | YY-YW-SDQ-HB,POC RT | Routin | 03/16/2017 | ST [...] | + +--------+ + + + | GK-TG-SFV-HB,POC RT | Routin | 03/16/2017 | ST [...] | + +--------+ + + + | ZN-IH-NSG-HB,POC RT | Routin | 03/15/2017 | ST [...] | + +--------+ + + + | XI-VO-PBC-HB,POC RT | Routin | 03/15/2017 | ST [...] | + +--------+ + + + | NX-UW-PSI-HB,POC RT | Routin | 03/15/2017 | ST [...] Height: 175 cm Weight: 89 kgBSA: 2.05 [id number] PHYSICIAN:Katarina Ngo, | | .FELLOW:Gerson Mejias M.D. [...] right coronary angiography.COMPLICATIONS:None.TECHNIQUE:Right femoral artery | | 6-[place]er 10 cm [place] sheath, 6-[place] XB 3.5 guide catheter, 5-[place] JR4 | | catheter.DESCRIPTION OF PROCEDURE:Informed consent [...] modified Seldinger technique and a | | 5-[place] Island[place] micropuncture system, a 6-[place] 10 cm [place] sheath was placed in the right | | femoral artery. A 6-[place] XB 3.5 guide catheter was inserted into the ascending aorta | | over a guidewire. The guidewire was removed. The catheter was aspirated and flushed. | | The left coronary system was selectively engaged and imaged in multiple projections. A | | 5-[place] Islander Kymberly right 4 catheter was advanced to [...] DOSE AREA | | PRODUCT: 3749 cGy [id number]:Aortic pressure 87/15, mean aortic pressure 63, heart [...] 03/30/2017 04:50:01DT: | | 03/30/2017 08:34:34Job #: [id number] | |extending from it into the LAD. [...] |YDT/MODL | | | | | | /[id number] | + + CAPILLARY BLOOD GLUCOSE (NO [...] + + + | [facility] | [address] | [place], [place] | | | JULIANN SILVA OF ALEXIS | [address] | [address] | | | TESTS | | | [...] [facility] | [address] | [place] [address] | | | SERVICES, CORE | PARK [...] [facility] | [address] | [place] [address] | | | SERVICES, CORE | PARK [...] [facility] | [address] | [place] [address] | | | SERVICES, CORE | PARK [...] | | | LABORATORY | | | BULGARIAN | | | SERVICES, | | | [...] | + + + + + | [facility] | [address] | [place] [address] | | | SERVICES, CORE | TABITHA [...] | + + + + + | [facility] | [address] | [place] [address] | | | SERVICES, CORE | PARK [...] [facility] | [address] | [place] [address] | | | ИРИНА ANTOINE | TABITHA [...] + + + | [facility] | [address] | [place], [place] | | | [facility]O [facility] | [address] | [address] | | | TESTS | | | [...] [facility] | [address] | [place], [place] | | | [facility]ARE | [address] | [address] | | | TESTS | | | [...] [facility]NA [facility] | [address] | [place], [place] | | | [facility]O POINT OF CARE | [address] | [address] | | | TESTS | | | [...] | + + + + + | [facility] | [address] [facility] | [place] [address] | | | SERVICES, CORE | PARK [...] | | | LABORATORY | | | BULGARIAN | | | SERVICES, | | | [...] [facility] | [address] | [place] [address] | | | SERVICES, CORE | TABITHA [...] | + + + + + | [facility] | [address] | [place] [address] | | | ARASH, ИРИНА | [address] | | | + + + + + MAGNESIUM, PLASMA (04/01/2017 3:43 AM PDT) + +-------+ + + + | Component | Value | Ref Range | Performed | Pathologist | | | | | At | Signature | + +-------+ + + + | MAGNESIUM,P | 2.2 | 1.8 - 2.5 mg/dL | [facility] | | | FEI | | | [...] | + + + + + | [facility] | [address] | [place] [address] | | | SERVICES, CORE | PARK [...] (H) | 70 - 99 mg/dL | [facility] - | | | GLUCOSE, | [...] [facility] | [address] | [place], [place] | | | JULIANN SILVA OF CARE | [address] | [address] | | | TESTS | | | [...] [facility] | [address] | [place], [place] | | | JULIANN SILVA OF CARE | [facility] | [address] | | | TESTS | | | [...] (H) | 70 - 99 mg/dL | [facility] - | | | GLUCOSE, | [...] [facility] | [address] | [place], [place] | | | JULIANN SILVA OF CARE | [address] | [address] | | | TESTS | | | [...] [facility] | [address] | [place], [place] | | | GURINDER SILVA | [facility] | [address] | | | TESTS | | | [...] [facility] | [address] | [place] [address] | | | ИРИНА ANTOINE | TABITHA [...] | | | LABORATORY | | | BULGARIAN | | | SERVICES, | | | [...] | + + + + + | [facility] | [address] | [place] [address] | | | SERVICES, CORE | PARK [...] | + + + + + | [facility] | [address] | [place] [address] | | | SERVICES, CORE | [address] | | | + + + + + MAGNESIUM, PLASMA (03/31/2017 3:45 AM PDT) + +-------+ + + + | Component | Value | Ref Range | Performed | Pathologist | | | | | At | Signature | + +-------+ + + + | MAGNESIUM,P | 2.4 | 1.8 - 2.5 mg/dL | [facility] | | | DENISEMA | | | [...] | + + + + + | [facility] | [address] | [place] [address] | | | ARASH, CORE | PARK [...] [facility] | [address] | [place] [address] | | | SERVICES, CORE | TABITHA [...] - [facility] | [address] | [place], [place] | | | [facility]O POINT OF CARE | [address] | [address] | | | TESTS | | | [...] | | | LABORATORY | | | BULGARIAN | | | SERVICES, | | | [...] | + + + + + | [facility] | [address] | [place] [address] | | | ИРИНА ANTOINE | TABITHA [...] DEPT OF | [address] | [place], [place] | | | CARDIOLOGY | [address] | [address] | | + + + + + [...] [facility] | [address] | [place], [place] | | | [facility]O POINT OF CARE | [address] | [address] | | | TESTS | | | [...] | | | LABORATORY | | | BULGARIAN | | | SERVICES, | | | [...] + + | [facility] | [address] | [place] [address] | | | SERVICES, CORE | PARK [...] LABORATORY | [address] | [place] [address] | | | SERVICES, CORE | TABITHA [...] | + +------ + | [facility] | [facility] | | [facility] Adult Echocardiography | CARDI OLOGY | | Laboratory [address] [place] [address], | | | [place] [address] Pt Name: | | | RON MCKEON Study Date/Time 03/30/2017 / 10:44:00 | | | AMMRN: [id number] Most recent | | | prior: 03/19/17cc #: [id number] No. previous | | | echos: 3DOB: 1955 61 years Heart | | | Rate: 70 bpmHeight: 68.0 in | | | Blood Pressure: 100/55 mm/HgWeight: 197.0 | | | lb Gender: | | | MBSA: 2.03 m2 Order | | | ID: [id number] Buffer Operator: Shahab Sutotn | | | RDCSSonographer 2: Karly Gayle Referring Provider: Ariana | | | [facility] Location: 11KModalities Performed: 2D, Color flow, | [...] patient's significant recent MA, we activated the earthmoving labourer. Patient | | | history has [...] Report electronically signed by: | | | [id number] Jordon Neville MD (03/30/2017, 2:04:56 PM) Final | | | | | |Wall Scoring: | | | | | | | | |Report electronically signed by: [id number] Jordon Neville MD (03/30/2017, 2:04:56 PM) | | | | | | | | | | | | Final | | + +------ + + + | Procedure Note | + + | Interface, Cardiology Results - 03/30/2017 2:04 PM [facility] | | [facility] Echocardiography Laboratory [address] [place] [address] | | [place], [place] [address] Pt Name: RON Chaudhary | | MIKE Study Date/Time 03/30/2017 / 10:44:00 AMMRN: [id number] Most | | recent prior: 03/19/17 #: [id number] No. previous echos: 3DOB: | | 1955 61 years Heart Rate: 70 bpmHeight: 68.0 in Blood | | Pressure: 100/55 mm/HgWeight: 197.0 lb Gender: MBSA: | | 2.03 m2 Order ID: [id number] Buffer Operator: Shahab Sutton | | RDCSSonographer 2: Karly [...] patient's significant recent MA, we activated the earthmoving labourer. Patient history has been | | [...] Scoring: Report | | electronically signed by: [id number] Jordon Neville MD (03/30/2017, 2:04:56 PM) Final [...] | | | |Report electronically signed by: [id number] Jordon Neville MD (03/30/2017, 2:04:56 PM) | | | | | | | | Final | + + + + + + + | Performing | Address | City/State/Zipcode | Phone Number | | Organization | | | | + + + + + | [facility] | [address] [facility] | [place], [place] | | | CARDIOLOGY | [address] | [address] | | + + + + + [...] [facility] | [address] | [place], [place] | | | [facility]O POINT OF CARE | [address] | [address] | | | TESTS | | | [...] | + + + + + | [facility] | [address] [facility] | [place] [address] | | | SERVICES, CORE | TABITHA [...] MAR[facility] | [address] | [place], [place] | | | JULIANN SILVA OF ALEXIS | [address] | [address] | | | TESTS | | | [...] + | [facility] | [address] [facility] | [place], [place] | | | CARDIOLOGY | [address] | [address] | | + + + + + [...] | | | LABORATORY | | | BULGARIAN | | | SERVICES, | | | [...] [facility] | [address] | [place] [address] | | | SERVICES, CORE | PARK [...] [facility] | [address] | [place] [address] | | | SERVICES, CORE | TABITHA [...] | + + + + + | [facility] | [address] | [place] [address] | | | SERVICES, CORE | [address] | | | + + + + + 12 LEAD ECG (03/30/2017 2:47 AM PDT) + + + + + + | Component | Value | Ref Range | Performed | Pathologist | | | | | At | Signature | + + + + + + | VENTRICULAR | 93 | bpm | [facility] | | | RATE | | [...] DEPT OF | [address] | [place], [place] | | | CARDIOLOGY | [address] | [address] | | + + + + + [...] | | | IMPRESSION | by: JANN JOREGNSEN | | OF | | | | [...] DEPT OF | [address] | [place], [place] | | | CARDIOLOGY | [address] | [address] | | + + + + + [...] | + + + + + | [facility] | [address] | [place] [address] | | | SERVICES, CORE | PARK [...] | + + + + + | [facility] | [address] | [place] [address] | | | SERVICES, CORE | TABITHA [...] | + + + + + | [facility] | [address] | [place] [address] | | | ARASH, ИРИНА | PARK [...] [facility] | [address] | [place] [address] | | | SERVICES, CORE | PARK [...] [facility] | [address] | [place], [place] | | | JULIANN SILVA OF [facility] | [address] | [address] | | | TESTS | | | [...] | + + + + + | [facility] | [address] | [place] [address] | | | SERVICES, CORE | TABITHA [...] [facility] OF | [address] | [place], [place] | | | CARDIOLOGY | [address] | [address] | | + + + + + [...] - [facility] | [address] | [place], [place] | | | [facility]O POINT OF CARE | [address] | [address] | | | TESTS | | | [...] [facility] | [address] | [place], [place] | | | [facility] | [address] | [address] | | | TESTS | | | [...] | + + + + + | [facility] | [address] | [place] [address] | | | SERVICES, CORE | TABITHA [...] [facility] | [address] | [place], [place] | | | R[facility]ARDO POINT OF CARE | [address] | [address] | | | TESTS | | | [...] [facility] | [address] | [place] [address] | | | SERVICES, CORE | PARK [...] | | | LABORATORY | | | BULGARIAN | | | SERVICES, | | | [...] | + + + + + | [facility] | [address] | [place] [address] | | | SERVICES, CORE | TABITHA [...] ranges for full anticoagulation: INR for | [facility] | | Venous Thromboembolism (2.0 - 3.0) INR INR | LABORATORY | | for most patients with mech. valves (2.5 - 3.5) INR | ARASH, CORE | + + + + + + + + | Performing | Address | City/State/Zipcode | Phone Number | | Organization | | | | + + + + + | [facility] | [address] [facility] | [place] [address] | | | ARASH, ИРИНА | TABITHA [...] | + + + + + | [facility] | [address] | [place] [address] | | | SERVICES, CORE | TABITHA [...] | + + + + + | [facility] | [address] | [place] [address] | | | ARASH, ИРИНА | TABITHA [...] | + + + + + | [facility] | [address] | [place] [address] | | | SERVICES, CORE | TABITHA [...] [facility] | [address] | [place], [place] | | | JULIANN SILVA OF A[facility] | [address] | [address] | | | TESTS | | | [...] [facility] | [address] | [place], [place] | | | [facility]ANN [facility] OF [facility] | [facility] | [address] | | | TESTS | | | [...] | | | LABORATORY | | | BULGARIAN | | | SERVICES, | | | [...] | + + + + + | [facility] | [address] | [place] [address] | | | ARASH, ИРИНА | PARK [...] [facility] | [address] | [place] [address] | | | SERVICES, CORE | PARK [...] | | | LABORATORY | | | BULGARIAN | | | SERVICES, | | | [...] | + + + + + | [facility] | [address] | [place] [address] | | | SERVICES, CORE | TABITHA [...] [facility] | [address] | [place], [place] | | | JULIANN SILVA OF CARE | [address] | [address] | | | TESTS | | | [...] [facility] | [address] | [place], [place] | | | JULIANN SILVA OF CARE | [address] | [address] | | | TESTS | | | [...] + + | [facility] | [address] [facility] | [place] [address] | | | SERVICES, ИРИНА | TABITHA [...] | | | LABORATORY | | | BULGARIAN | | | SERVICES, | | | [...] + + | [facility] | [address] | [place] [address] | | | SERVICES, CORE | PARK [...] | + + + + + | [facility] | [address] | [place] [address] | | | SERVICES, CORE | PARK [...] | + + + + + | [facility] | [address] | [place] [address] | | | SERVICES, CORE | [address] | | | + + + + + MAGNESIUM, PLASMA (03/28/2017 4:13 AM PDT) + +---------+ + + + | Component | Value | Ref Range | Performed | Pathologist | | | | | At | Signature | + +---------+ + + + | MAGNESIUM,P | 2.7 (H) | 1.8 - 2.5 mg/dL | [facility] | | | DENISEMA | | [...] | + + + + + | [facility] | [address] | [place] [address] | | | SERVICES, CORE | PARK [...] [facility] | [address] | [place], [place] | | | JUL[facility]ANN SILVA OF [facility] H[facility] | [address] | [address] | | | TESTS | | | [...] RODGERS | [address] | [place], [place] | | | [facility] | [address] | [address] | | | TESTS | | | [...] - ANA MARIA | [address] | [place], [place] | | | JULIANN SIL[facility] | [address] | [address] | | | TESTS | | | [...] ANA MARIA | [address] | [place], [place] | | | JULIANN [facility] OF [facility] | [address] | [address] | | | TESTS | | | [...] [facility] | [address] | [place] [address] | | | SERVICES, CORE | PARK [...] | + + + + + | [facility] | [address] | [place] [address] | | | SERVICES, CORE | TABITHA [...] | | | LABORATORY | | | BULGARIAN | | | SERVICES, | | | [...] [facility] | [address] | [place] [address] | | | SERVICES, CORE | PARK [...] | + + + + + | [facility] | [address] | [place] [address] | | | SERVICES, CORE | PARK [...] | + + + + + | [facility] | [address] | [place] [address] | | | SERVICES, CORE | TABITHA [...] - MARQUAM | [address] | [place], [place] | | | [facility] | [address] | [address] | | | TESTS | | | [...] + + + | E[facility] | [address] | [place], [place] | | | [facility] | [address] | [address] | | | TESTS | | | [...] | | | LABORATORY | | | BULGARIAN | | | SERVICES, | | | [...] | + + + + + | [facility] | [address] | [place] [address] | | | SERVICES, CORE | TABITHA [...] MARRANDIAM | [address] | [place], [place] | | | JULIANN [facility] | [address] | [address] | | | TESTS | | | | + + + + + RAINBOW HOLD TUBE - GREEN TOP (03/26/2017 3:50 AM PDT) + + | Specimen | + + | Blood | + + + + + + + | Performing | Address | City/State/Zipcode | Phone Number | | Organization | | | | + + + + + | [employer] | [address] | [place] [address] | | | SERVICES, CORE | TABITHA [...] | + + + + + | [facility] | [address] | [place] [address] | | | SERVICES, CORE | PARK [...] | + + + + + | [facility] | [address] | [place] [address] | | | ИРИНА ANTOINE | TABITHA [...] | | | LABORATORY | | | BULGARIAN | | | SERVICES, | | | [...] EULOGIO CALABRESE | [address] | [place] [address] | | | SERVICES, CORE | TABITHA [...] | + + + + + | [facility] | [address] | [place] [address] | | | SERVICES, CORE | TABITHA [...] [facility] | [address] | [place] [address] | | | SERVICES, CORE | PARK [...] | [facility] | | considered for monitoring termination clerk glycemic control in patients with: | LABORATORY [...] [facility] | [address] | [place] [address] | | | SERVICES, SPECIAL | PARK [...] + + + + + | [facility] | [address] | [place] [address] | | | SERVICES, CORE | TABITHA [...] MARQUAM | [address] | [place], [place] | | | [facility] | [address] | [address] | | | TESTS | | | [...] EULOGIO RODGERS | [address] | [place], [place] | | | [facility] | [address] | [address] | | | TESTS | | | [...] | + + + + + | [facility] | [address] | [place] [address] | | | SERVICES, CORE | TABITHA [...] | [facility] | | | GRAVITY | [place] performed by | | LABORATORY | | [...] | + + + + + | [facility] | [address] | [place] [address] | | | SERVICES, CORE | TABITHA [...] + | [facility] | [address] | [place] [address] | | | [place] | | | [...] MARQUAM | [address] | [place], [place] | | | [facility] | [address] | [address] | | | TESTS | | | [...] RODGERS | [address] | [place] | | | [facility] | [address] | [address] | | | TESTS | | | [...] | + + + + + | [facility] | [address] | [place] [address] | | | ИРИНА ANTOINE | TABITHA [...] | + + + + + | [facility] | [address] | [place] [address] | | | ИРИНА ANTOINE | TABITHA [...] ranges for full anticoagulation: INR for | [facility] | | Venous Thromboembolism (2.0 - 3.0) INR INR | LABORATORY | | for most patients with mech. valves (2.5 - 3.5) INR | ИРИНА ANTOINE | + + + + + + + + | Performing | Address | City/State/Zipcode | Phone Number | | Organization | | | | + + + + + | [facility] | [address] | [place] [address] | | | ИРИНА ANTOINE | TABITHA [...] [facility] | [address] | [place] [address] | | | SERVICES, CORE | PARK [...] | | | LABORATORY | | | BULGARIAN | | | SERVICES, | | | [...] | + + + + + | [employer] | [address] | [place] [address] | | | SERVICES, CORE | PARK [...] | + + + + + | [facility] | [address] | [place] [address] | | | SERVICES, CORE | PARK [...] MARQUAM | [address] | [place], [place] | | | [facility] | [address] | [address] | | | TESTS | | | [...] - MARQUAM | [address] | [place], [place] | | | [facility] | [address] | [address] | | | TESTS | | | [...] RODGERS | [address] | [place], [place] | | | [facility] | [address] | [address] | | | TESTS | | | [...] MARQUAM | [address] | [place] | | | [facility] | [address] | [address] | | | TESTS | | | [...] [facility] | [address] | [place] [address] | | | SERVICES, CORE | PARK [...] | + + + + + | [employer] | [address] | [place] [address] | | | SERVICES, CORE | [...] BLUAM | [address] | [place], [place] | | | JULIANN S[facility] | [address] | [address] | | | TESTS | | | [...] | | | attempt. Midline lot number [id number]; there was + blood | | | [...] RODGERS | [address] | [place], [place] | | | [facility] | [address] | [address] | | | TESTS | | | [...] MARQUAM | [address] | [place] | | | [facility] | [address] | [address] | | | TESTS | | | [...] | + + + + + | [facility] | [address] | [place] [address] | | | SERVICES, CORE | TABITHA [...] (H) | 70 - 99 mg/dL | [facility] - | | | GLUCOSE, | [...] RODGERS | [address] | [place], [place] | | | [facility] | [facility] | [address] | | | TESTS | | | [...] MARIA | [address] | [place] | | | JUL[facility]ANN [facility] | [address] | [address] | | | TESTS | | | [...] MARIA | [address] | [place], [place] | | | [facility] | [facility] | [address] | | | TESTS | | | [...] (H) | 70 - 99 mg/dL | [facility] - | | | GLUCOSE, | [...] RODGERS | [address] | [place] | | | JULIANN SILVA [facility] | [facility] | [address] | | | TESTS | | | [...] | + + + + + | [facility] | [address] | [place] [address] | | | SERVICES, CORE | TABITHA [...] | + + + + + | [facility] | [address] | [place] [address] | | | SERVICES, CORE | TABITHA [...] [facility] | [address] | [place] [address] | | | SERVICES, CORE | TABITHA [...] | | | LABORATORY | | | BULGARIAN | | | SERVICES, | | | [...] | + + + + + | [facility] | [address] | [place] [address] | | | SERVICES, CORE | TABITHA [...] | + + + + + | [facility] | [address] | [place] [address] | | | ИРИНА ANTOINE | TABITHA [...] ANA MARIA | [address] | [place], [place] | | | [facility]ANN [facility] | [address] | [address] | | | TESTS | | | [...] (H) | 70 - 99 mg/dL | [facility] - | | | GLUCOSE, | [...] RODGERS | [address] | [place], [place] | | | [facility] | [address] | [address] | | | TESTS | | | [...] MARQUAM | [address] | [place] | | | [facility] | [address] | [address] | | | TESTS | | | [...] ANA MARIA | [address] | [place], [place] | | | [facility]O [facility] | [address] | [address] | | | TESTS | | | [...] | + + + + + | [facility] | [address] | [place] [address] | | | SERVICES, CORE | TABITHA [...] MARQUAM | [address] | [place], [place] | | | [facility] | [address] | [address] | | | TESTS | | | [...] ANA MARIA | [address] | [place], [place] | | | [facility] | [address] | [address] | | | TESTS | | | [...] | + + + + + | [facility] | [address] | [place] [address] | | | SERVICES, CORE | TABITHA [...] RODGERS | [address] | [place] | | | JULIANN S[facility]VA [facility] | [facility] | [address] | | | TESTS | | | [...] MARQUAM | [address] | [place], [place] | | | [facility] | [address] | [address] | | | TESTS | | | [...] (H) | 70 - 99 mg/dL | [facility] - | | | GLUCOSE, | [...] MARQUAM | [address] | [place] | | | [facility] | [address] | [address] | | | TESTS | | | [...] RODGERS | [address] | [place] | | | JULIANN SILVA OF [facility] | [facility] | [address] | | | TESTS | | | [...] MARIA | [address] | [place] | | | [facility] | [address] | [address] | | | TESTS | | | [...] [facility] | [address] | [place] [address] | | | SERVICES, CORE | PARK [...] | + + + + + | [facility] | [address] | [place] [address] | | | SERVICES, CORE | PARK [...] | + + + + + | [facility] | [address] | [place] [address] | | | SERVICES, CORE | TABITHA [...] | | | LABORATORY | | | BULGARIAN | | | SERVICES, | | | [...] [facility] | [address] | [place] [address] | | | SERVICES, CORE | PARK [...] | + + + + + | [facility] | [address] | [place] [address] | | | SERVICES, CORE | TABITHA [...] (H) | 70 - 99 mg/dL | [facility] - | | | GLUCOSE, | | [...] MARIA | [address] | [place], [place] | | | JULIANN S[facility] | [facility] | [address] | | | TESTS | | | [...] MARIA | [address] | [place], [place] | | | JULIANN S[facility] | [facility] | [address] | | | TESTS | | | [...] (H) | 70 - 99 mg/dL | [facility] - | | | GLUCOSE, | [...] MARIA | [address] | [place], [place] | | | [facility] | [address] | [address] | | | TESTS | | | [...] + + | Performing | Address | City/State/[facility] | Phone Number | | Organization | | | | + + + + + | EULOGIO - ANA MARIA | [address] | [place], [place] | | | JULIANN SILVA OF [facility] | [facility] | [address] | | | TESTS | | | [...] BLUAM | [address] | [place], [place] | | | JULIANN SILVA OF [facility] | [facility] | [address] | | | TESTS | | | [...] (H) | 70 - 99 mg/dL | [facility] - | | | GLUCOSE, | [...] MARIA | [address] | [place], [place] | | | [facility] | [address] | [address] | | | TESTS | | | [...] [facility] | [address] | [place] [address] | | | SERVICES, CORE | PARK [...] - MARQUAM | [address] | [place], [place] | | | JUL[facility]ANN SIL[facility] | [facility] | [address] | | | TESTS | | | [...] RODGERS | [address] | [place], [place] | | | [facility] | [address] | [address] | | | TESTS | | | [...] MARQUAM | [address] | [place] | | | [facility] | [address] | [address] | | | TESTS | | | [...] - MARQUAM | [address] | [place] | | | [facility] | [address] | [address] | | | TESTS | | | [...] RODGERS | [address] | [place], [place] | | | [facility] | [address] | [address] | | | TESTS | | | [...] [facility] | [address] | [place] [address] | | | ARASH, ИРИНА | TABITHA [...] MARQUAM | [address] | [place] | | | [facility] | [address] | [address] | | | TESTS | | | [...] RODGERS | [address] | [place] | | | [facility] | [address] | [address] | | | TESTS | | | [...] MARQUAM | [address] | [place] | | | [facility] | [address] | [address] | | | TESTS | | | [...] MARQUAM | [address] | [place] | | | [facility] | [address] | [address] | | | TESTS | | | [...] RODGERS | [address] | [place], [place] | | | [facility] | [address] | [address] | | | TESTS | | | [...] MARQUAM | [address] | [place] | | | H[facility], POINT [facility] CARE | [address] | [address] | | | TESTS | | | [...] [facility] | [address] | [place] [address] | | | SERVICES, | [address] [...] | + + + + + | [facility] | [address] | [place] [address] | | | SERVICES, | [address] [...] + + + + | PRODUCT | [id number] | | [facility] | | | UNIT [...] + + + + | EXPIRATION | [id number] | | [facility] | | | DATE [...] + + + + | BLOOD | [id number] | | [facility] | | | PRODUCT [...] [facility] | [address] | [place] [address] | | | SERVICES, | [address] [...] + + + | [facility] | [address] | [place] [address] | | | SERVICESИРИНА | [address] [...] | + + + + + | [facility] | [address] | [place] [address] | | | SERVICES, CORE | PARK [...] | + + + + + | [facility] | [address] | [place] [address] | | | ИРИНА ANTOINE | TABITHA [...] | + + + + + | [facility] | [address] | [place] [address] | | | SERVICES, CORE | TABITHA [...] [facility] | [address] | [place] [address] | | | SERVICES, CORE | PARK [...] | | | LABORATORY | | | BULGARIAN | | | SERVICES, | | | [...] | + + + + + | [facility] | [address] | [place] [address] | | | SERVICES, CORE | PARK [...] MARIA | [address] | [place], [place] | | | JULIANN SILVA OF CARE | [facility] | [address] | | | TESTS | | | [...] (H) | 70 - 99 mg/dL | [facility] - | | | GLUCOSE, | [...] | EULOGIO R[facility]GERS | [address] | [place], [place] | | | JULIANN SILVA [facility] | [facility] | [address] | | | TESTS | | | [...] MARIA | [address] | [place], [place] | | | [facility] | [address] | [address] | | | TESTS | | | [...] ANA MARIA | [address] | [place], [place] | | | JUL[facility]ANN SIL[facility] CARE | [facility] | [address] | | | TESTS | | | [...] (H) | 70 - 99 mg/dL | [facility] - | | | GLUCOSE, | [...] RODGERS | [address] | [place], [place] | | | JULIANN SIL[facility] | [facility] | [address] | | | TESTS | | | [...] MARIA | [address] | [place], [place] | | | [facility] | [address] | [address] | | | TESTS | | | [...] MARIA | [address] | [place], [place] | | | JULIANN SILVA OF CARE | [facility] | [address] | | | TESTS | | | [...] (H) | 70 - 99 mg/dL | [facility] - | | | GLUCOSE, | [...] RODGERS | [address] | [place], [place] | | | [facility] | [address] | [address] | | | TESTS | | | [...] MARIA | [address] | [place], [place] | | | [facility] | [address] | [address] | | | TESTS | | | [...] | | | LABORATORY | | | BULGARIAN | | | SERVICES, | | | [...] | + + + + + | [facility] | [address] | [place] [address] | | | SERVICES, CORE | PARK [...] MARQUAM | [address] | [place], [place] | | | J[facility]ANN [facility] | [address] | [address] | | | TESTS | | | [...] MARQUAM | [address] | [place], [place] | | | [facility] | [address] | [address] | | | TESTS | | | [...] (H) | 70 - 99 mg/dL | [facility] - | | | GLUCOSE, | [...] RODGERS | [address] | [place], [place] | | | [facility]ANN [facility] | [address] | [address] | | | TESTS | | | [...] on the 1 attempt. Midline lot number [id number]; there was + | | | blood [...] MARQUAM | [address] | [place], [place] | | | JULIANN SILVA OF CARE | [facility] | [address] | | | TESTS | | | [...] RODGERS | [address] | [place] | | | [facility]ANN [facility] | [address] | [address] | | | TESTS | | | [...] | + + + + + | [facility] | [address] | [place] [address] | | | SERVICES, CORE | PARK [...] + + + | EULOGIO R[facility] | [address] | [place], [place] | | | [facility] | [address] | [address] | | | TESTS | | | [...] | + + + + + | [facility] | [address] | [place] [address] | | | SERVICES, CORE | PARK [...] MARIA | [address] | [place], [place] | | | [facility] | [address] | [address] | | | TESTS | | | [...] MARIA | [address] | [place], [place] | | | JULIANN S[facility]VA [facility] | [facility] | [address] | | | TESTS | | | [...] (H) | 70 - 99 mg/dL | [facility] - | | | GLUCOSE, | [...] RODGERS | [address] | [place], [place] | | | [facility] | [address] | [address] | | | TESTS | | | [...] MARIA | [address] | [place], [place] | | | [facility] | [address] | [address] | | | TESTS | | | [...] [facility] | [address] | [place] [address] | | | ИРИНА ANTOINE | TABITHA [...] | + + + + + | [facility] | [address] | [place] [address] | | | SERVICES, CORE | [address] | | | + + + + + MAGNESIUM, PLASMA (03/21/2017 5:34 AM PDT) + +---------+ + + + | Component | Value | Ref Range | Performed | Pathologist | | | | | At | Signature | + +---------+ + + + | MAGNESIUM,P | 2.6 (H) | 1.8 - 2.5 mg/dL | [facility] | | | [facility] | | | [...] | + + + + + | [facility] | [address] | [place] [address] | | | SERVICES, CORE | TABITHA [...] | | | LABORATORY | | | BULGARIAN | | | SERVICES, | | | [...] | + + + + + | [facility] | [address] | [place] [address] | | | ИРИНА ANTOINE | TABITHA [...] (H) | 70 - 99 mg/dL | [facility] - | | | GLUCOSE, | [...] RODGERS | [address] | [place], [place] | | | [facility] | [address] | [address] | | | TESTS | | | [...] MARIA | [address] | [place], [place] | | | [facility] | [address] | [address] | | | TESTS | | | [...] MARQUAM | [address] | [place] | | | [facility]ANN S[facility] | [address] | [address] | | | TESTS | | | [...] RODGERS | [address] | [place] | | | [facility]ANN S[facility] | [address] | [address] | | | TESTS | | | [...] BLUAM | [address] | [place] | | | [facility]ANN SIL[facility] | [address] | [address] | | | TESTS | | | [...] | + + + + + | [facility] | [address] | [place] [address] | | | SERVICES, CORE | TABITHA [...] (H) | 70 - 99 mg/dL | [facility] - | | | GLUCOSE, | [...] RODGERS | [address] | [place] | | | [facility] PO[facility] | [address] | [address] | | | TESTS | | | [...] MARQUAM | [address] | [place] | | | [facility] | [address] | [address] | | | TESTS | | | [...] MARQUAM | [address] | [place] | | | JULIANN SILVA OF [facility] | [facility] | [address] | | | TESTS | | | [...] RODGERS | [address] | [place] | | | [facility]ANN [facility] | [address] | [address] | | | TESTS | | | [...] MARQUAM | [address] | [place] | | | H[facility], PO[facility]ARE | [address] | [address] | | | TESTS | | | [...] MARQUAM | [address] | [place] | | | JULIANN SILVA OF [facility] | [facility] | [address] | | | TESTS | | | [...] RODGERS | [address] | [place] | | | [facility]ANN [facility] | [address] | [address] | | | TESTS | | | [...] | + + + + + | [facility] | [address] | [place] [address] | | | SERVICES, CORE | TABITHA [...] (H) | 70 - 99 mg/dL | [facility] - | | | GLUCOSE, | [...] RODGERS | [address] | [place] | | | JULIANN SILVA OF [facility] | [facility] | [address] | | | TESTS | | | [...] MARIA | [address] | [place], [place] | | | J[facility]ANN SILVA [facility] CARE | [address] | [address] | | | TESTS | | | [...] | + + + + + | [facility] | [address] | [place] [address] | | | ИРИНА ANTOINE | TABITHA [...] R[facility] | [address] | [place], [place] | | | JULIANN SILVA OF [facility] | [address] | [address] | | | TESTS | | | [...] the tip in the proximal gastric body. Cody Олег | | | catheter in place. [...] Note | + + | Service Account, [employer] Res In Interface - 03/20/2017 2:38 PM PDT EXAM: Supine | | frontal view of the abdomen. HISTORY: Study to evaluate feeding tube | | positionCOMPARISON: Chest Xray dated 03/19/2017.FINDINGS AND IMPRESSION:Feeding tube is | | seen in the stomach with the tip in the proximal gastric body.Cody Олег catheter in | | place.Limited evaluation of the lungs as technique was tailored for feeding tube.I have | | personally reviewed the images and, if necessary, edited the report. I agree with the | | report as now presented. | | | |Feeding tube is seen in the stomach with the tip in the proximal gastric body. | |Cody Олег catheter in place. | |Limited evaluation [...] | | + +---------+ + + | [facility] | | | | | [...] [place] | [address] | [place], [place] | | | JULIANN SILVA OF CARE | [address] | [address] | | | TESTS | | | [...] [facility] | [address] | [place], [place] | | | JULIANN SILVA [facility]ARE | [address] | [address] | | | TESTS | | | [...] + + | [facility] | [address] | [place], [place] | | | JULIANN SILVA [facility] CARE | [address] | [address] | | | TESTS | | | [...] [place] | [address] | [place], [place] | | | JULIANN SILVA OF [facility] | [address] | [address] | | | TESTS | | | [...] [facility] | [address] | [place], [place] | | | [facility] | [address] | [address] | | | TESTS | | | [...] | + + + + + | [facility] | [address] | [place] [address] | | | ARASH, ИРИНА | TABITHA [...] + + | [facility] | [address] | [place] [address] | | | SERVICES, CORE | PARK [...] | + + + + + | [facility] | [address] | [place] [address] | | | SERVICES, CORE | TABITHA [...] [place] | [address] | [place], [place] | | | JULIANN SILVA [facility] CARE | [address] | [address] | | | TESTS | | | | + + + + + X-RAY PORTABLE CHEST 1 VIEW (03/20/2017 6:33 AM PDT) + + | Specimen | + + | | + + + + + | Narrative | Performed At | + + + | EXAM: CA CHEST 1 VIEW 03/20/17 04:29:28 HISTORY: ECMO [...] Note | + + | Service Account, [employer] Interface - 03/20/2017 10:12 AM PDT EXAM: CA CHEST 1 | | VIEW 03/20/17 04:29:28 [...] [place] | [address] | [place], [place] | | | CHRISTIE SILVA [facility] | [facility] | [address] | | | TESTS | | | [...] [place] | [address] | [place], [place] | | | JULIANN SILVA OF [facility] | [facility] | [address] | | | TESTS | | | [...] [facility] | [address] | [place], [place] | | | [facility] | [address] | [address] | | | TESTS | | | [...] [place] | [address] | [place], [place] | | | JULIANN SILVA OF [facility] | [facility] | [address] | | | TESTS | | | [...] [facility] | [address] | [place] [address] | | | SERVICES, CORE | TABITHA [...] | + + + + + | [facility] | [address] | [place] [address] | | | SERVICES, CORE | [address] | | | + + + + + MAGNESIUM, PLASMA (03/20/2017 1:00 AM PDT) + +---------+ + + + | Component | Value | Ref Range | Performed | Pathologist | | | | | At | Signature | + +---------+ + + + | MAGNESIUM,P | 2.7 (H) | 1.8 - 2.5 mg/dL | [facility] | | | LASMA | | [...] | + + + + + | [facility] | [address] | [place] [address] | | | SERVICES, CORE | PARK [...] | + + + + + | [facility] | [address] | [place] [address] | | | SERVICES, CORE | TABITHA [...] | | | LABORATORY | | | BULGARIAN | | | SERVICES, | | | [...] | + + + + + | [facility] | [address] | [place] [address] | | | ARASH, ИРИНА | TABITHA [...] [place] | [address] | [place], [place] | | | [place], [facility] | [address] | [address] | | | TESTS | | | [...] [place] | [address] | [place], [place] | | | [facility]UL[facility]ANN [facility]VA [facility] HOSPITAL | [address] | [address] | | | TESTS | | | [...] | + + + + + | [facility] | [address] | [place] [address] | | | SERVICES, CORE | TABITHA [...] [facility] | [address] | [place], [place] | | | JULIANN SILVA OF CARE | [address] | [address] | | | TESTS | | | [...] EULOGIO RODG[facility] | [address] | [place], [place] | | | [facility] | [address] | [address] | | | TESTS | | | [...] | + + + + + | [facility] | [address] | [place] [address] | | | SERVICES, CORE | TABITHA [...] (H) | 70 - 99 mg/dL | [facility] - | | | GLUCOSE, | [...] | + + + + + | EULGOIO [facility] | [address] | [place], [place] | | | JULIANN SILVA OF [facility] | [facility] | [address] | | | TESTS | | | [...] | + + + + + | [facility] | [address] | [place] [address] | | | SERVICES, CORE | TABITHA [...] (H) | 70 - 99 mg/dL | [facility] - | | | GLUCOSE, | | | [facility] | | | POC | | | JULIANN SILVA | | | | | | OF CARE | | | | | | TESTS | | + +---------+ + + + + + | Specimen | + + | | + + + + + + + | Performing | Address | City/State[facility] | Phone Number | | Organization | | | | + + + + + | [facility] | [address] | [place], [place] | | | JULIANN SILVA OF [place] | [facility] | [address] | | | TESTS | | | [...] | + + + + + | [facility] | [address] | [place] [address] | | | SERVICES, CORE | PARK [...] | + + + + + | [facility] | [address] | [place] [address] | | | ИРИНА ANTOINE | TABITHA [...] (H) | 70 - 99 mg/dL | [facility] - | | | GLUCOSE, | [...] MARIA | [address] | [place], [place] | | | R[facility]ARDO [facility] | [address] | [address] | | | TESTS | | | [...] | 118 (L) | >300 mmHg | [facility] | | | RATIO | | | [...] | + + + + + | [facility] | [address] | [place] [address] | | | ARASH, ИРИНА | TABITHA [...] [facility] | [address] | [place] [address] | | | SERVICES, CORE | PARK [...] [facility] | [address] | [place] [address] | | | ARASH, ИРИНА | PARK [...] | + + + + + | [facility] | [address] | [place] [address] | | | SERVICES, CORE | TABITHA [...] (H) | 70 - 99 mg/dL | [facility] - | | | GLUCOSE, | [...] RODGERS | [address] | [place], [place] | | | JULIANN SILVA OF [facility] | [address] | [address] | | | TESTS | | | [...] [facility] | [address] | [place], [place] | | | [facility] | [address] | [address] | | | TESTS | | | [...] ANA MARIA | [address] | [place], [place] | | | [facility] | [address] | [address] | | | TESTS | | | [...] [facility] | [address] | [place] [address] | | | SERVICES, CORE | TABITHA [...] [facility] | [address] | [place], [place] | | | CARDIOLOGY | [address] | [address] | | + + + + + [...] [facility] | [address] | [place] | | | JULIANN SILVA [facility] CARE | [address] | [address] | | | TESTS | | | | + + + + + PR-RN-JAA-HB,POC RT (03/19/2017 1:04 PM PDT) + + [...] [facility] | [address] | [place], [place] | | | JULIANN SILVA [facility] CARE | [address] | [address] | | | TESTS | | | [...] + + + + | PRODUCT | [id number] | | [facility] | | | UNIT [...] + + + + | EXPIRATION | [id number] | | [facility] | | | DATE [...] + + + + | BLOOD | [id number] | | [facility] | | | PRODUCT [...] [facility] | [address] | [place] [address] | | | SERVICES, | [address] [...] + + + + | PRODUCT | [id number] | | [facility] | | | UNIT [...] + + + + | EXPIRATION | [id number] | | [facility] | | | DATE [...] + + + + | BLOOD | [id number] | | [facility] | | | PRODUCT [...] [facility] | [address] | [place] [address] | | | SERVICES, | [address] [...] + + + + | PRODUCT | [id number] | | [facility] | | | UNIT [...] + + + + | EXPIRATION | [id number] | | [facility] | | | DATE [...] + + + + | BLOOD | [id number] | | [facility] | | | PRODUCT [...] LABORATORY | [address] | [place] [address] | | | SERVICES, | [address] [...] + + + + | PRODUCT | [id number] | | [facility] | | | UNIT [...] + + + + | EXPIRATION | [id number] | | [facility] | | | DATE [...] + + + + | BLOOD | [id number] | | [facility] | | | PRODUCT [...] [facility] | [address] | [place] [address] | | | SERVICES, | [address] [...] | + + + + + | [facility] | [address] | [place] [address] | | | SERVICES, CORE | TABITHA [...] | | | LABORATORY | | | BULGARIAN | | | SERVICES, | | | [...] [facility] | [address] | [place] [address] | | | ARASH, ИРИНА | PARK [...] [facility] | [address] | [place] [address] | | | SERVICES, CORE | PARK [...] | + + + + + | [facility] | [address] | [place] [address] | | | SERVICES, CORE | [address] | | | + + + + + CA ECMO REV (EXT)AND/OR DECANNULATION (03/19/2017 12:36 PM [...] GISELL Preston PhD [place] [address] [id number] [place], | | | [place] [address] | | + + + ABG-FULL ABL, POC (03/19/2017 12:14 PM PDT) + + + + + + | Component | Value | Ref Range | Performed | Pathologist | | | | | At | Signature | + + + + + + | PH | 7.42 | 7.37 - 7.44 | [facility] - | | | ARTERIAL, | [...] - [facility] | [address] | [place], [place] | | | JULIANN SILVA [facility] CARE | [address] | [address] | | | TESTS | | | [...] ANA MARIA | [address] | [place], [place] | | | JULIANN SILVA OF CARE | [facility] | [address] | | | TESTS | | | | + + + + + CG-GR-LZL-HB,POC RT (03/19/2017 10:24 AM PDT) + + [...] - [facility] | [address] | [place], [place] | | | JULIANN SILVA OF CARE | [address] | [address] | | | TESTS | | | [...] [facility] | [address] | [place], [place] | | | [facility] | [address] | [address] | | | TESTS | | | | + + + + + UJ-MD-DIL-HB,POC RT (03/19/2017 10:06 AM PDT) + + [...] + + + | E[facility] | [address] | [place], [place] | | | [facility] | [address] | [address] | | | TESTS | | | | + + + + + YV-LQ-ZTX-KARY ISIDRO RT (03/19/2017 9:51 AM PDT) + [...] MARIA | [address] | [place], [place] | | | JULIANN SILVA OF [facility] | [address] | [address] | | | TESTS | | | [...] + + + + | PRODUCT | [id number] | | [facility] | | | UNIT [...] + + + + | EXPIRATION | [id number] | | [facility] | | | DATE [...] + + + + | BLOOD | [id number] | | [facility] | | | PRODUCT [...] | + + + + + | [facility] | [address] | [place] [address] | | | SERVICES, | [address] [...] + + + + | PRODUCT | [id number] | | [facility] | | | UNIT [...] + + + + | EXPIRATION | [id number] | | [facility] | | | DATE [...] + + + + | BLOOD | [id number] | | [facility] | | | PRODUCT [...] | + + + + + | [facility] | [address] | [place] [address] | | | SERVICES, | [address] [...] + + + + | PRODUCT | [id number] | | [facility] | | | UNIT [...] + + + + | EXPIRATION | [id number] | | [facility] | | | DATE [...] + + + + | BLOOD | [id number] | | [facility] | | | PRODUCT [...] | + + + + + | [facility] | [address] | [place] [address] | | | SERVICES, | [address] [...] + + + + | PRODUCT | [id number] | | [facility] | | | UNIT [...] + + + + | EXPIRATION | [id number] | | [facility] | | | DATE [...] + + + + | BLOOD | [id number] | | [facility] | | | PRODUCT [...] [facility] | [address] | [place] [address] | | | SERVICES, | [address] | | | | TRANSFUSION MEDICINE | | | | + + + + + X-RAY PORTABLE CHEST 1 VIEW (03/19/2017 9:13 AM PDT) + + | Specimen | + + | | + + + + + | Narrative | Performed At | + + + | EXAM: CA CHEST 1 VIEW HISTORY: ECMO. Evaluate cannula | [facility] | | placement. COMPARISON: Yesterday FINDINGS: Endotracheal | RADIOLOGY VOICE | | tube, Cody-Олег catheter and enteric tube remain in place. [...] Note | + + | Service Account, Countercepts In Interface - 03/19/2017 9:17 AM PDT EXAM: CA CHEST 1 | | VIEW HISTORY: ECMO. Evaluate cannula placement.COMPARISON: YesterdayFINDINGS: | | Endotracheal tube, Cody-Олег catheter and enteric tube remain in place. [...] - MARRANDIAM | [address] | [place], [place] | | | JULIANN SILVA [facility] C[facility] | [address] | [address] | | | TESTS | | | [...] RODGERS | [address] | [place], [place] | | | JULIANN SILVA OF CARE | [address] | [address] | | | TESTS | | | [...] [facility] | [address] | [place] [address] | | | SERVICES, CORE | PARK [...] - MARRANDIAM | [address] | [place], [place] | | | [facility] | [address] | [address] | | | TESTS | | | [...] (H) | 70 - 99 mg/dL | [facility] - | | | GLUCOSE, | [...] + + + | E[facility]OGIO R[facility] | [address] | [place], [place] | | | JULIANN S[facility] | [address] | [address] | | | TESTS | | | [...] [facility] | [address] | [place], [place] | | | JULIANN SILVA OF [facility] | [facility] | [address] | | | TESTS | | | [...] ANA MARIA | [address] | [place] | | | [facility] | [address] | [address] | | | TESTS | | | [...] | + + + + + | [facility] | [address] | [place] [address] | | | SERVICES, CORE | TABITHA [...] (H) | 70 - 99 mg/dL | [facility] - | | | GLUCOSE, | [...] RODGERS | [address] | [place], [place] | | | JULIANN SILVA OF [facility] | [facility] | [address] | | | TESTS | | | [...] [facility] | [address] | [place], [place] | | | JUL[facility]ANN SIL[facility] | [address] | [address] | | | TESTS | | | [...] (H) | 70 - 99 mg/dL | [facility] - | | | GLUCOSE, | [...] MARIA | [address] | [place], [place] | | | [facility] | [address] | [address] | | | TESTS | | | [...] | + + + + + | [facility] | [address] [facility] | [place] [address] | | | ARASH, ИРИНА | TABITHA [...] 04/17/2017 at 9:05 AM | | | Mairno Carvajal MD. | | + + + + + + + + | Performing | Address | City/State/Zipcode | Phone Number | | Organization | | | | + + + + + | E[facility] | [address] | [place], [place] | | | JUL[facility]ANN [facility] | [facility] | [address] | | | TESTS | | | [...] [facility] | [address] | [place] [address] | | | SERVICES, CORE | PARK [...] | + + + + + | [facility] | [address] | [place] [address] | | | SERVICES, CORE | [address] | | | + + + + + MAGNESIUM, PLASMA (03/19/2017 1:11 AM PDT) + +---------+ + + + | Component | Value | Ref Range | Performed | Pathologist | | | | | At | Signature | + +---------+ + + + | MAGNESIUM,P | 2.6 (H) | 1.8 - 2.5 mg/dL | [facility] | | | [facility] | | | [...] | + + + + + | [facility] | [address] | [place] [address] | | | SERVICES, CORE | TABITHA [...] | + + + + + | [facility] | [address] | [place] [address] | | | SERVICES, CORE | TABITHA [...] [facility] | [address] | [place] [address] | | | SERVICES, CORE | PARK [...] [facility] | [address] | [place] [address] | | | ARASH, ИРИНА | TABITHA [...] | | | LABORATORY | | | BULGARIAN | | | SERVICES, | | | [...] | + + + + + | [facility] | [address] | [place] [address] | | | SERVICES, CORE | TABITHA [...] [facility] | [address] | [place] [address] | | | SERVICES, CORE | PARK [...] | + + + + + | [facility] | [address] | [place] [address] | | | SERVICES, CORE | PARK [...] (H) | 70 - 99 mg/dL | [facility] - | | | GLUCOSE, | [...] RODGERS | [address] | [place], [place] | | | JULIANN SILVA OF [place] | [facility] | [address] | | | TESTS | | | [...] | + + + + + | [facility] | [address] | [place] [address] | | | SERVICES, CORE | TABITHA [...] (H) | 70 - 99 mg/dL | [facility] - | | | GLUCOSE, | | [...] RODGERS | [address] | [place], [place] | | | [facility] | [address] | [address] | | | TESTS | | | [...] [facility] | [address] | [place], [place] | | | [facility] | [address] | [address] | | | TESTS | | | [...] | + + + + + | [facility] | [address] | [place] [address] | | | SERVICES, CORE | TABITHA [...] (H) | 70 - 99 mg/dL | [facility] - | | | GLUCOSE, | [...] RODGERS | [address] | [place], [place] | | | [facility] | [address] | [address] | | | TESTS | | | [...] [facility] | [address] | [place], [place] | | | JUL[facility]ANN SIL[facility] CARE | [address] | [address] | | | TESTS | | | [...] ANA MARIA | [address] | [place] | | | [facility] | [address] | [address] | | | TESTS | | | [...] [facility] | [address] | [place] [address] | | | SERVICES, CORE | PARK [...] | + + + + + | [facility] | [address] | [place] [address] | | | SERVICES, CORE | TABITHA [...] (H) | 70 - 99 mg/dL | [facility] - | | | GLUCOSE, | [...] RODGERS | [address] | [place], [place] | | | JULIANN SILVA [facility] | [address] | [address] | | | TESTS | | | [...] | + + + + + | [employer] [facility] | [address] | [place] [address] | | | SERVICES, ИРИНА | TABITHA [...] MARIA | [address] | [place], [place] | | | JULIANN SILVA OF CARE | [facility] | [address] | | | TESTS | | | [...] (H) | 70 - 99 mg/dL | [facility] - | | | GLUCOSE, | [...] RODGERS | [address] | [place], [place] | | | JULIANN SILVA OF CARE | [facility] | [address] | | | TESTS | | | [...] | + + + + + | [facility] | [address] | [place] [address] | | | SERVICES, CORE | PARK [...] | + + + + + | [facility] | [address] | [place] [address] | | | ARASH, ИРИНА | TABITHA [...] [facility] | [address] | [place], [place] | | | [facility] | [address] | [address] | | | TESTS | | | [...] ANA MARIA | [address] | [place], [place] | | | [facility] | [address] | [address] | | | TESTS | | | [...] [facility] | [address] | [place] [address] | | | SERVICES, CORE | PARK [...] | + + + + + | [facility] | [address] | [place] [address] | | | SERVICES, CORE | PARK [...] [facility] | [address] | [place] [address] | | | SERVICES, CORE | PARK [...] | + + + + + | [facility] | [address] | [place] [address] | | | SERVICES, CORE | TABITHA [...] | | | LABORATORY | | | BULGARIAN | | | SERVICES, | | | [...] [facility] | [address] | [place] [address] | | | SERVICES, CORE | TABITHA [...] | + + + + + | [facility] | [address] | [place] [address] | | | SERVICES, CORE | TABITHA [...] | + + + + + | [facility] | [address] | [place] [address] | | | ARASH, ИРИНА | TABITHA [...] [facility] | [address] | [place] [address] | | | SERVICES, CORE | PARK [...] [facility] | [address] | [place], [place] | | | [facility] | [address] | [address] | | | TESTS | | | [...] RODGERS | [address] | [place] | | | [facility] | [address] | [address] | | | TESTS | | | [...] [facility] | [address] | [place] [address] | | | SERVICES, CORE | PARK [...] MARIA | [address] | [place], [place] | | | [facility] | [address] | [address] | | | TESTS | | | [...] | + + + + + | [facility] | [address] | [place] [address] | | | SERVICES, CORE | PARK [...] | + + + + + | [facility] | [address] | [place] [address] | | | SERVICES, CORE | PARK [...] | + + + + + | [facility] | [address] | [place] [address] | | | [facility] [place] | | | | + + + [...] RODGERS | [address] | [place], [place] | | | [facility] | [address] | [address] | | | TESTS | | | [...] RODGERS | [address] | [place], [place] | | | J[facility]ANN SILVA [facility] | [address] | [address] | | | TESTS | | | [...] [facility] | [address] | [place] [address] | | | SERVICES, ИРИНА | TABITHA [...] [facility] | [address] | [place] [address] | | | ARASH, ИРИНА | TABITHA [...] (H) | 70 - 99 mg/dL | [facility] - | | | GLUCOSE, | [...] [facility] | [address] | [place], [place] | | | JULIANN SILVA OF [facility] | [facility] | [address] | | | TESTS | | | [...] RODGERS | [address] | [place], [place] | | | [facility] | [address] | [address] | | | TESTS | | | | + + + + + X-RAY PORTABLE CHEST 1 VIEW (03/18/2017 6:05 AM PDT) + + | Specimen | + + | | + + + + + | Narrative | Performed At | + + + | EXAM: CA CHEST 1 VIEW HISTORY: ECMO. Evaluate cannula placement. | [facility] | | COMPARISON: Yesterday FINDINGS: Endotracheal tube tip is | RADIOLOGY VOICE | | 2.5 cm above the jefferson. Enteric tube tip in the stomach. Cody-Олег | RECOGNITION | | catheter tip projects [...] Note | + + | Service Account, Countercepts In Interface - 03/18/2017 8:39 AM PDT EXAM: CA CHEST 1 | | VIEW HISTORY: ECMO. Evaluate cannula placement.COMPARISON: YesterdayFINDINGS: | | Endotracheal tube tip is 2.5 cm above the jefferson. Enteric tube tip in the stomach. | | Cody-Олег catheter tip projects in the main pulmonary [...] [facility] | [address] | [place], [place] | | | [facility] | [address] | [address] | | | TESTS | | | [...] MARIA | [address] | [place], [place] | | | [facility]O [facility]AY [facility] | [facility] | [address] | | | TESTS | | | [...] | + + + + + | [facility] | [address] | [place] [address] | | | SERVICES, CORE | TABITHA [...] R[facility]GERS | [address] | [place], [place] | | | [facility] | [address] | [address] | | | TESTS | | | [...] ANA MARIA | [address] | [place] | | | [facility] | [address] | [address] | | | TESTS | | | [...] [facility] | [address] | [place] [address] | | | SERVICES, | [address] [...] [facility] | [address] | [place] [address] | | | SERVICES, | [address] [...] + + + + | PRODUCT | [id number] | | [facility] | | | UNIT [...] + + + + | EXPIRATION | [id number] | | [facility] | | | DATE [...] + + + + | BLOOD | [id number] | | [facility] | | | PRODUCT [...] [facility] | [address] | [place] [address] | | | SERVICES, | [address] [...] MARIA | [address] | [place] | | | J[facility]ANN SILVA [facility] CARE | [address] | [address] | | | TESTS | | | [...] [facility] | [address] | [place] [address] | | | SERVICES, CORE | TABITHA [...] + + | [facility] | [address] | [place] [address] | | | SERVICES, ИРИНА | TABITHA [...] | + + + + + | [facility] | [address] | [place] [address] | | | SERVICES, CORE | PARK [...] [facility] | [address] | [place] [address] | | | SERVICES, CORE | PARK [...] | | | LABORATORY | | | BULGARIAN | | | SERVICES, | | | [...] | + + + + + | [facility] | [address] | [place] [address] | | | SERVICES, ИРИНА | TABITHA [...] | + + + + + | [facility] | [address] | [place] [address] | | | SERVICES, CORE | PARK [...] | + + + + + | [facility] | [address] | [place] [address] | | | SERVICES, CORE | TABITHA [...] [facility] | [address] | [place] [address] | | | SERVICES, CORE | TABITHA [...] Zoe [facility] | [address] | [place], [place] | | | [facility] | [facility] | [address] | | | TESTS | | | [...] [facility] | [address] | [place] [address] | | | SERVICES, CORE | TABITHA [...] [facility] | [address] | [place] [address] | | | ИРИНА ANTOINE | TABITHA [...] ANA MARIA | [address] | [place], [place] | | | JULIANN SILVA OF CARE | [facility] | [address] | | | TESTS | | | [...] (H) | 60 - 99 mg/dL | [facility] - | | | GLUCOSE, | [...] R[facility] | [address] | [place], [place] | | | [facility]ANN SIL[facility] CARE | [facility] | [address] | | | TESTS | | | [...] MARIA | [address] | [place], [place] | | | JULIANN SILVA OF ALEXIS | [address] | [address] | | | TESTS | | | [...] EULOGIO RODGERS | [address] | [place], [place] | | | JULIANN SILVA OF CARE | [address] | [address] | | | TESTS | | | [...] | + + + + + | [facility] | [address] | [place] [address] | | | SERVICES, CORE | TABITHA [...] (H) | 60 - 99 mg/dL | [facility] - | | | GLUCOSE, | [...] RODGERS | [address] | [place], [place] | | | [facility] | [address] | [address] | | | TESTS | | | [...] [facility] | [address] | [place] [address] | | | SERVICES, ИРИНА | PARK [...] [facility] | [address] | [place] [address] | | | ИРИНА ANTOINE | PARK [...] [facility] | [address] | [place] [address] | | | SERVICES, CORE | PARK [...] | + + + + + | [facility] | [address] | [place] [address] | | | SERVICES, CORE | TABITHA [...] | + + + + + | [facility] | [address] | [place] [address] | | | SERVICES, CORE | PARK [...] MARQUAM | [address] | [place], [place] | | | JULIANN SILVA OF CARE | [facility] | [address] | | | TESTS | | | [...] (H) | 60 - 99 mg/dL | [facility] - | | | GLUCOSE, | [...] MARIA | [address] | [place], [place] | | | JULIANN SILVA OF [facility] | [address] | [address] | | | TESTS | | | [...] | 58 (L) | >300 mmHg | [facility] | | | RATIO | | [...] | + + + + + | [facility] | [address] | [place] [address] | | | SERVICES, CORE | PARK [...] MARQUAM | [address] | [place], [place] | | | JULIANN SILVA OF CARE | [facility] | [address] | | | TESTS | | | [...] MARIA | [address] | [place], [place] | | | JULIANN SILVA OF [facility] | [address] | [address] | | | TESTS | | | [...] + + + + | PRODUCT | [id number] | | [facility] | | | UNIT [...] + + + + | EXPIRATION | [id number] | | [facility] | | | DATE [...] + + + + | BLOOD | [id number] | | [facility] | | | PRODUCT [...] | + + + + + | [facility] | [address] | [place] [address] | | | SERVICES, | [address] [...] + + + + | PRODUCT | [id number] | | [facility] | | | UNIT [...] + + + + | EXPIRATION | [id number] | | [facility] | | | DATE [...] + + + + | BLOOD | [id number] | | [facility] | | | PRODUCT [...] | + + + + + | [employer] | [address] | [place] [address] | | | SERVICES, | [address] [...] MARQUAM | [address] | [place], [place] | | | JULIANN SILVA OF CARE | [address] | [address] | | | TESTS | | | [...] [facility] | [address] | [place] [address] | | | SERVICES, CORE | PARK [...] [facility] | [address] | [place] [address] | | | SERVICES, CORE | PARK [...] [facility] | [address] | [place] [address] | | | SERVICES, CORE | PARK [...] [facility] | [address] | [place] [address] | | | SERVICES, CORE | TABITHA [...] | | | LABORATORY | | | BULGARIAN | | | SERVICES, | | | [...] | + + + + + | [facility] | [address] | [place] [address] | | | SERVICES, CORE | PARK [...] [facility] | [address] | [place] [address] | | | SERVICES, CORE | TABITHA [...] [facility] | [address] | [place] [address] | | | SERVICES, CORE | TABITHA [...] | 115 (L) | >300 mmHg | [facility] | | | RATIO | | | [...] | + + + + + | [facility] | [address] | [place] [address] | | | ARASH, ИРИНА | PARK [...] MARQUAM | [address] | [place], [place] | | | [facility] | [address] | [address] | | | TESTS | | | [...] | + + + + + | [facility] | [address] | [place] [address] | | | SERVICES, CORE | TABITHA [...] (H) | 60 - 99 mg/dL | [facility] - | | | GLUCOSE, | | [...] RODGERS | [address] | [place], [place] | | | [facility] | [address] | [address] | | | TESTS | | | [...] Note | + + | Service Account, Countercepts In Interface - 03/17/2017 6:18 PM PDT [...] Note | + + | Service Account, Countercepts In Interface - 03/17/2017 6:17 PM PDT [...] RODGERS | [address] | [place], [place] | | | [facility] | [address] | [address] | | | TESTS | | | [...] | + + + + + | [facility] | [address] | [place] [address] | | | SERVICES, CORE | TABITHA [...] | EJECTION | 22.5 | % | [facility] HOSPITAL DEPT | | | FRACTION | | | OF | | | [facility] | | | CARDIOLOGY | | | VALUE | | | | | + + + + + + + + | Specimen | + + | | + + + + -------+ | Narrative | Performed At | + + -------+ | [facility] | [facility] DE PT OF | | [facility] Adult Echocardiography | CARDIOLOG Y | | [place] [address] [facility] | | | [place] [address] Pt Name: | | | RON MCKEON Study Date/Time 03/17/2017 / 10:30:26 | | | AMMRN: [id number] Most recent | | | prior: 03/15/2017Acc #: [id number] No. | | | previous echos: 1DOB: 1955 61 years Heart | | | Rate: 139 bpmHeight: 69.0 | | | in Blood Pressure: 133/83 | | | mm/HgWeight: 258.0 | | | lb Gender: | | | MBSA: 2.30 m2 Order | | | ID: [id number] Buffer Operator: Mauri Domingo [facility] | | | Referring Provider: Mellisa Rubalcava [facility] | | | Performed: Limited 2D, Color Doppler and Spectral Doppler | | | Limited.Study Quality: Fair.Exam Indication: Heart failure; ECMO; s/p | | | STEMIHistory: 61 year old male with a past medical history significant | | | for hypertension, hyperlipidemia, ongoing tobacco use and | | | pre-diabetes who is transferred to [facility] with cardiogenic shock in the | [...] | | | Report electronically signed by: [id number] Jen Ovalle MD, PhD | | | (03/17/2017, 1:53:40 PM) Final | | | | | |Report electronically signed by: [id number] Jen Ovalle MD, PhD (03/17/2017, | | |1:53:40 PM) | | | | | | | | | | | | Final | | + + -------+ + + | Procedure Note | + + | Interface, Cardiology Results - 03/17/2017 1:53 PM Located within [facility] Locately | | [facility] Echocardiography Laboratory [address] [place] [address] | | [place], [place] [address] Pt Name: RON MCKEON Study Date/Time 03/17/2017 / 10:30:26 AMMRN: [id number] Most | | recent prior: 03/15/2017Acc #: [id number] No. previous echos: 1DOB: | | 1955 61 years Heart Rate: 139 bpmHeight: 69.0 in Blood | | Pressure: 133/83 mm/HgWeight: 258.0 lb Gender: MBSA: | | 2.30 m2 Order ID: [id number] Buffer Operator: Mauri Domingo | | RDCSReferring Provider: Mellisa Rubalcava Location: 12KModalities Performed: | | Limited 2D, Color Doppler and Spectral Doppler Limited.Study Quality: Fair.Exam | | Indication: Heart failure; ECMO; s/p STEMIHistory: 61 year old male with a past medical | | history significant for hypertension, hyperlipidemia, ongoing tobacco use and | | pre-diabetes who is transferred to [facility] with cardiogenic shock in the setting [...] | | Scoring: Report electronically signed by: [id number] Jen Ovalle MD, PhD (03/17/2017, | | [...] | | | |Report electronically signed by: [id number] Jen Ovalle MD, PhD (03/17/2017, | |1:53:40 PM) | | | | | | | | Final | + + + + + + + | Performing | Address | City/State/Zipcode | Phone Number | | Organization | | | | + + + + + | [facility] | [address] | [place], [place] | | | CARDIOLOGY | [address] | [address] | | + + + + + [...] [facility] | [address] | [place], [place] | | | RICARDO POINT OF CARE | [address] | [address] | | | TESTS | | | [...] [facility] | [address] | [place], [place] | | | [facility] POINT OF CARE | [address] | [address] | | | TESTS | | | [...] [facility] | [address] | [place] [address] | | | SERVICES, CORE | PARK [...] [facility] | [address] | [place] [address] | | | SERVICES, CORE | PARK [...] | + + + + + | [facility] | [address] | [place] [address] | | | SERVICES, ИРИНА | TABITHA [...] [facility] | [address] | [place], [place] | | | [facility] POINT OF CARE | [facility] | [address] | | | TESTS | | | [...] - [facility] | [address] | [place], [place] | | | [facility] POINT OF CARE | [address] | [address] | | | TESTS | | | [...] + + + | [facility] | [address] | [place], [place] | | | [facility] | [address] | [address] | | | TESTS | | | [...] [facility] | [address] | [place] [address] | | | SERVICES, CORE | TABITHA [...] | + + + + + | [facility] | [address] | [place] [address] | | | SERVICES, CORE | [address] | | | + + + + + X-RAY PORTABLE CHEST 1 VIEW (03/17/2017 5:37 AM PDT) + + | Specimen | + + | | + + + + + | Narrative | Performed At | + + + | EXAM: CA CHEST 1 VIEW 03/17/17 04:53:29 HISTORY: On [...] | + + | Service Account, Arely [employer] In Interface - 03/17/2017 9:44 AM PDT EXAM: CA CHEST 1 | | VIEW 03/17/17 04:53:29 [...] BL[facility] | [address] | [place], [place] | | | JULIANN SILVA OF CARE | [address] | [address] | | | TESTS | | | [...] [facility] | [address] | [place] [address] | | | SERVICESИРИНА | [address] [...] | | | LABORATORY | | | BULGARIAN | | | SERVICES, | | | [...] | + + + + + | [facility] | [address] | [place] [address] | | | SERVICES, ИРИНА | TABITHA [...] | + + + + + | [facility] | [address] | [place] [id number] | | | ИРИНА ANTOINE | TABITHA [...] [facility] | [address] | [place], [place] | | | JULIANN SILVA OF CARE | [address] | [address] | | | TESTS | | | [...] | + + + + + | [facility] | [address] | [place] [address] | | | SERVICES, CORE | PARK [...] | + + + + + | [facility] | [address] | [place] [address] | | | SERVICES, CORE | TABITHA [...] | + + + + + | [facility] | [address] | [place] [address] | | | SERVICES, CORE | TABITHA [...] | + + + + + | [facility] | [address] | [place] [address] | | | ARASH, ИРИНА | P[address] [...] [facility] | [address] | [place] [address] | | | SERVICES, CORE | PARK [...] [facility] | [address] | [place] [address] | | | SERVICES, CORE | PARK [...] [facility] | [address] | [place] [address] | | | SERVICES, CORE | PARK [...] | + + + + + | [facility] | [address] | [place] [address] | | | SERVICES, CORE [...] | + + + + + | [facility] | [address] | [place] [address] | | | SERVICES, CORE | PARK [...] [facility] | [address] | [place] [address] | | | SERVICES, CORE | TABITHA [...] DEPT OF | [address] | [place], [place] | | | CARDIOLOGY | [address] | [address] | | + + + + + KT-HS-WIM-HB,POC RT (03/17/2017 12:44 AM PDT) + + [...] [facility] | [address] | [place], [place] | | | R[place]ARDO POINT OF CARE | [address] | [address] | | | TESTS | | | [...] MARRANDIAM | [address] | [place], [place] | | | JULIANN SILVA OF CARE | [facility] | [address] | | | TESTS | | | [...] BLUAM | [address] | [place], [place] | | | JULIANN SILVA OF CARE | [address] | [address] | | | TESTS | | | [...] | + + + + + | [facility] | [address] | [place] [address] | | | SERVICES, ИРИНА | TABITHA [...] MAR[facility] | [address] | [place], [place] | | | R[facility]O POINT OF CARE | [address] | [address] | | | TESTS | | | [...] ANA MARIA | [address] | [place], [place] | | | RICARDO POINT OF CARE | [address] | [address] | | | TESTS | | | [...] | + + + + + | [facility] | [address] | [place] [address] | | | SERVICES, CORE | TABITHA [...] MARIA | [address] | [place], [place] | | | JULIANN SILVA OF [place] | [address] | [address] | | | TESTS | | | [...] | + + + + + | [facility] | [address] | [place] [address] | | | ИРИНА ANTOINE | TABITHA [...] (H) | 60 - 99 mg/dL | [facility] - | | | GLUCOSE, | [...] MARIA | [address] | [place], [place] | | | R[place]O POINT OF CARE | [address] | [address] | | | TESTS | | | [...] MARIA | 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 | [place] [address] | | | SERVICES, CORE | PARK [...] [facility] | [address] | [place] [address] | | | SERVICES, CORE | PARK [...] [facility] | [address] | [place] [address] | | | SERVICES, CORE | PARK [...] [facility] | [address] | [place] [address] | | | SERVICES, CORE | PARK [...] | | | LABORATORY | | | BULGARIAN | | | SERVICES, | | | [...] | + + + + + | [facility] | [address] | [place] [address] | | | SERVICES, CORE | TABITHA [...] [facility] | [address] | [place] [address] | | | SERVICES, CORE | PARK [...] | + + + + + | [facility] | [address] | [place] [address] | | | SERVICES, CORE | TABITHA [...] [facility] | [address] | [place], [place] | | | JULIANN SILVA OF [place] | [address] | [address] | | | TESTS | | | [...] MARIA | [address] | [place], [place] | | | JULIANN SILVA OF [place] | [facility] | [address] | | | TESTS | | | | + + + + + CAPILLARY BLOOD GLUCOSE (NO CHG), POC (03/16/2017 1:16 PM PDT) + +-------+ + + + | Component | Value | Ref Range | Performed | Pathologist | | | | | At | Signature | + +-------+ + + + | BLOOD | 90 | 60 - 99 mg/dL | [facility] - | | | GLUCOSE, | [...] NINOSKAQUAM | [address] | [place], [place] | | | RICARDO POINT OF CARE | [address] | [address] | | | TESTS | | | [...] R[facility] | [address] | [place], [place] | | | GURINDER SILVA | [facility] | [address] | | | TESTS | | | [...] | + + + + + | [facility] | [address] | [place] [address] | | | SERVICES, ИРИНА | TABITHA [...] | | | LABORATORY | | | BULGARIAN | | | SERVICES, | | | [...] | + + + + + | [facility] | [address] | [place] [address] | | | SERVICES, CORE | TABITHA [...] (H) | 60 - 99 mg/dL | [facility] - | | | GLUCOSE, | [...] MARIA | [address] | [place], [place] | | | GURINDER SILVA | [facility] | [address] | | | TESTS | | | [...] | + + + + + | [facility] | [address] | [place] [address] | | | ИРИНА ANTOINE | TABITHA [...] [facility] | [address] | [place], [place] | | | JULIANN SILVA OF CARE | [facility] | [address] | | | TESTS | | | | + + + + + OPERATION RECORD (03/16/2017 9:30 AM PDT) + + | Procedure Note | + + | Dale Mak MD - 03/15/2017 3:42 PM PDT Date of Service: 03/15/2017 Attending | | Surgeon:Ron Powell MD. Facilities Maintenance Manager(s):Dale Mak MD. | | Preoperative Diagnoses: 1.Cardiogenic [...] The | | patient was transferred to [facility] for further management. At [facility], the patient continued | | to [...] cannulation with micropuncture | | wire. A 7-[place] Islander sheath was placed in an antegrade direction down the SFA for distal | | perfusion. A 19-[place] arterial cannula was placed in a retrograde [...] 03/15/2017 15:23:00DT: 03/15/2017 15:42:27Job #: | | [id number] | | | |A 19-[place]er arterial cannula was placed in a retrograde [...] |HS/MODL | | | | | | /[id number] | + + CBC (HEMOGRAM) ONLY (03/16/2017 [...] [facility] | [address] | [place] [address] | | | SERVICES, CORE | PARK [...] [facility] | [address] | [place] [address] | | | SERVICES, CORE | PARK [...] | + + + + + | [employer] | [address] | [place] [address] | | | SERVICES, CORE | TABITHA [...] MAR[facility] | [address] | [place], [place] | | | JULIANN SILVA OF [place] | [address] | [address] | | | TESTS | | | [...] BLUAM | [address] | [place], [place] | | | JULIANN SILVA OF CARE | [facility] | [address] | | | TESTS | | | [...] [facility] | [address] | [place], [place] | | | RICARDO POINT OF CARE | [address] | [address] | | | TESTS | | | | + + + + + X-RAY PORTABLE CHEST 1 VIEW (03/16/2017 5:44 AM PDT) + + | Specimen | + + | | + + + + + | Narrative | Performed At | + + + | EXAM: CA CHEST 1 VIEW HISTORY: Evaluate cannula placement. heart | [facility] | | failure. COMPARISON: Yesterday FINDINGS: Endotracheal | RADIOLOGY VOICE | | tube, Cody-Олег catheter and enteric tube remain in place. [...] Note | + + | Service Account, [employer] In Interface - 03/16/2017 8:27 AM PDT EXAM: CA CHEST 1 | | VIEW HISTORY: Evaluate cannula placement. heart failure.COMPARISON: YesterdayFINDINGS: | | Endotracheal tube, Cody-Олег catheter and enteric tube remain in place. [...] MARIA | [address] | [place], [place] | | | RICARDO POINT OF CARE | [address] | [address] | | | TESTS | | | [...] (H) | 60 - 99 mg/dL | [facility] - | | | GLUCOSE, | [...] [facility] | [address] | [place], [place] | | | [facility] | [facility] | [address] | | | TESTS | | | | + + + + + FD-FQ-MCA-KARY ISIDRO RT (03/16/2017 3:42 AM PDT) + [...] [facility] | [address] | [place], [place] | | | JULIANN SILVA OF [place] | [address] | [address] | | | TESTS | | | [...] [facility] | [address] | [place], [place] | | | RICARDO POINT OF CARE | [address] | [address] | | | TESTS | | | [...] | + + + + + | [facility] | [address] | [place] [address] | | | SERVICES, CORE | TABITHA [...] MARLAISHA | | | | | | JULAINN SILVA | | [...] [facility] | [address] | [place], [place] | | | JULIANN SILVA OF [place] | [address] | [address] | | | TESTS | | | [...] | + + + + + | [facility] | [address] | [place] [address] | | | SERVICES, ИРИНА | TABITHA [...] [facility] | [address] | [place] [address] | | | SERVICES, CORE | PARK [...] | | | LABORATORY | | | BULGARIAN | | | SERVICES, | | | [...] | + + + + + | [facility] | [address] | [place] [address] | | | SERVICES, CORE | TABITHA [...] [facility] | [address] | [place] [address] | | | SERVICES, CORE | PARK [...] | + + + + + | [facility] | [address] | [place] [address] | | | SERVICES, CORE | PARK [...] | + + + + + | [facility] | [address] | [place] [address] | | | ARASH, ИРИНА | TABITHA [...] | + + + + + | [facility] | [address] | [place] [address] | | | SERVICES, CORE | TABITHA [...] (H) | 60 - 99 mg/dL | [facility] - | | | GLUCOSE, | [...] [facility] | [address] | [place], [place] | | | JULIANN SILVA OF CARE | [address] | [address] | | | TESTS | | | [...] + + | [facility] | [address] | [place] [address] | | | SERVICES, CORE | PARK [...] [facility] | [address] | [place], [place] | | | [facility]ANN [facility]VA OF [facility] | [address] | [address] | | | TESTS | | | [...] | + + + + + | [facility] | [address] | [place] [address] | | | SERVICES, CORE | TABITHA [...] | | | LABORATORY | | | BULGARIAN | | | SERVICES, | | | [...] AST CMNT | No Hemo | | [facility] | | | | | | [...] | + + + + + | [facility] [employer] | [address] | [place] [address] | | | SERVICES, CORE | [address] | | | + + + + + CM-NT-FJJ-HB,POC RT (03/16/2017 12:22 AM PDT) + + [...] [facility] | [address] | [place], [place] | | | RICARDO POINT OF CARE | [address] | [address] | | | TESTS | | | [...] + + + | [facility] | [address] | [place], [place] | | | RICARDO POINT OF CARE | [address] | [address] | | | TESTS | | | [...] MARQU[facility] | [address] | [place], [place] | | | RICARDO POINT OF CARE | [address] | [address] | | | TESTS | | | [...] E[facility]OGIO [facility] | [address] | [place], [place] | | | [facility] | [address] | [address] | | | TESTS | | | | + + + + + X-RAY PORTABLE CHEST 1 VIEW (03/15/2017 9:44 PM PDT) + + | Specimen | + + | | + + + + + | Narrative | Performed At | + + + | EXAM: CA CHEST 1 VIEW HISTORY: Evaluate new endotracheal [...] | + + | Service Account, [employer] In Interface - 03/16/2017 8:27 AM PDT EXAM: CA CHEST 1 | | VIEW HISTORY: Evaluate [...] MARIA | [address] | [place], [place] | | | JULIANN SILVA OF [place] | [address] | [address] | | | TESTS | | | [...] MARIA | [address] | [place] | | | RICARDO POINT OF CARE | [address] | [address] | | | TESTS | | | [...] [facility] | [address] | [place] [address] | | | SERVICES, CORE | PARK [...] [facility] | [address] | [place] [address] | | | SERVICES, CORE | PARK [...] [facility] | [address] | [place] [address] | | | SERVICES, [facility] | [address] | | | + [...] | Ambubag and suction available at bedside. [facility] Mac 4 used to [...] [facility] | [address] | [place], [place] | | | JULIANN SILVA OF [place] | [address] | [address] | | | TESTS | | | | + + + + + PM-MX-UKL-HB,POC RT (03/15/2017 7:39 PM PDT) + + [...] [facility] | [address] | [place], [place] | | | JULIANN SILVA OF [place] | [address] | [address] | | | TESTS | | | [...] [facility] | [address] | [place], [place] | | | RICARDO POINT OF CARE | [address] | [address] | | | TESTS | | | [...] [facility] | [address] | [place], [place] | | | HILL, POINT OF CARE | [address] | [address] | | | TESTS | | | | + + + + + X-RAY PORTABLE CHEST 1 VIEW (03/15/2017 5:51 PM PDT) + + | Specimen | + + | | + + + + + | Narrative | Performed At | + + + | STUDY: CA CHEST 1 VIEW 03/15/17 17:40:08 COMPARISON: 03/15/17 at | [facility] | | 3:52 PM. HISTORY: Line [...] Interface - 03/15/2017 6:20 PM PDT STUDY: CA CHEST 1 | | VIEW 03/15/17 17:40:08COMPARISON: [...] | | + +---------+ + + | [facility] | | | | | [...] | pause verifies correct patient, procedure, equipment, production support analyst | | | and site/side marked as [...] modified Seldinger technique (a | | | imuknwra-xmnb-fzq-ikofyw-yrku-bonh-lsjsklk-mnp-rsqdeksk) was used for | | | vessel [...] Name: Ron Mckeon MRN: | | | [id number] 03/15/2017 Time: 5:26 PM Diagnosis: shock At [...] Jose Ramon Alvarado | | | R2, [facility] Emergency Medicine Personal Pager: [phone] | | | | | + + + LACTATE (03/15/2017 4:49 PM PDT) + + + + + + | Component | Value | Ref Range | Performed | Pathologist | | | | | At | Signature | + + + + + + | LACTATE | 7.5 () | mmol/L | [facility] | | | | | | [...] | + + + + + | [facility] | [address] | [place] [address] | | | ИРИНА ANTOINE | TABITHA [...] (H) | 60 - 99 mg/dL | [facility] - | | | GLUCOSE, | [...] [facility] | [address] | [place], [place] | | | RICARDO POINT OF CARE | [address] | [address] | | | TESTS | | | [...] BLUAM | [address] | [place] | | | JULIANN SILVA OF CARE | [facility] | [address] | | | TESTS | | | | + + + + + X-RAY PORTABLE CHEST 1 VIEW (03/15/2017 4:03 PM PDT) + + | Specimen | + + | | + + + + + | Narrative | Performed At | + + + | EXAM: CA CHEST 1 VIEW 03/15/17 15:42:37 HISTORY: ECMO [...] Interface - 03/15/2017 6:18 PM PDT EXAM: CA CHEST 1 | | VIEW 03/15/17 15:42:37 [...] [facility] | [address] | [place], [place] | | | [facility] | [address] | [address] | | | TESTS | | | [...] R[facility] | [address] | [place] | | | JULIANN SILVA OF CARE | [facility] | [address] | | | TESTS | | | [...] MARIA | [address] | [place], [place] | | | RICARDO POINT OF CARE | [facility] | [address] | | | TESTS | | | [...] [facility] | [address] | [place] [address] | | | SERVICES, CORE | TABITHA [...] | + + + + + | [facility] | [address] | [place] [address] | | | SERVICES, CORE | TABITHA [...] [facility] | [address] | [place] [address] | | | SERVICES, CORE | PARK [...] [facility] | [address] | [place] [address] | | | SERVICES, CORE | PARK [...] | | | LABORATORY | | | BULGARIAN | | | SERVICES, | | | [...] | + + + + + | [employer] | [address] | [place] [address] | | | SERVICES, CORE | TABITHA [...] Division of Cardiothoracic Surgery | | | [facility] - Mail Code [id number] | | | [place] [id number] | | + + + X-RAY PORTABLE CHEST 1 VIEW (03/15/2017 2:32 PM PDT) + + | Specimen | + + | | + + + + + | Narrative | Performed At | + + + | STUDY: CA CHEST 1 VIEW 03/15/17 14:21:08 COMPARISON: 03/15/17. | [facility] | | HISTORY: Introducer placement-June when [...] Note | + + | Service Account, [employer] In Interface - 03/15/2017 2:46 PM PDT STUDY: CA CHEST 1 | | VIEW 03/15/17 14:21:08COMPARISON: [...] + + + + | PRODUCT | [id number] | | [facility] | | | UNIT [...] + + + + | EXPIRATION | [id number] | | [facility] | | | DATE [...] + + + + | BLOOD | [id number] | | [facility] | | | PRODUCT [...] | + + + + + | [employer] | [address] | [place] [address] | | | SERVICES, | [address] [...] + + + + | PRODUCT | [id number] | | [facility] | | | UNIT [...] + + + + | EXPIRATION | [id number] | | [facility] | | | DATE [...] + + + + | BLOOD | [id number] | | [facility] | | | PRODUCT [...] | + + + + + | [facility] | [address] | [place] [address] | | | SERVICES, | [address] [...] + + + + | PRODUCT | [id number] | | [facility] | | | UNIT [...] + + + + | EXPIRATION | [id number] | | [facility] | | | DATE [...] + + + + | BLOOD | [id number] | | [facility] | | | PRODUCT [...] + + | [facility] | [address] | [place] [address] | | | SERVICES, | [address] [...] + + + + | PRODUCT | [id number] | | [facility] | | | UNIT [...] + + + + | EXPIRATION | [id number] | | [facility] | | | DATE [...] + + + + | BLOOD | [id number] | | [facility] | | | PRODUCT [...] [facility] | [address] | [place] [address] | | | SERVICES, | [address] | | | | TRANSFUSION MEDICINE | | | | + + + + + [id number] RT (03/15/2017 1:23 PM PDT) + + [...] [facility] | [address] | [place], [place] | | | JULI[facility] | [address] | [address] | | | TESTS | | | [...] [facility] | [address] | [place], [place] | | | [facility] | [address] | [address] | | | TESTS | | | [...] | + + + | [facility] | [facility] | | [facility] Adult Echocardiography | CARDIOLOGY | | Laboratory [address] [place] [address], | | | [place] [address] Pt Name: | | | RON Neena MCKEON Study Date/Time 03/15/2017 / 12:54:21 | | | [id number] Most recent | | | prior: -Acc #: [id number] No. previous | | | echos: 0DOB: 1955 61 years Heart Rate: | | | 145 bpmHeight: Blood | | | Pressure: 90/67 mm/HgWeight: 249.0 | | | lb Gender: | | | MBSA: 2.34 m2 Order | | | ID: [id number] Buffer Operator: Vahid NOBLES | | | Referring Provider: [...] Report electronically signed by: | | | [id number] Yajaira Johnson MD (03/15/2017, 3:38:52 PM) Final | | | | | | | | | | | | Final | | + + + + + | Procedure Note | + + | Interface, Cardiology Results - 03/15/2017 3:38 PM Located within [facility] Locately | | [facility] Echocardiography Laboratory [address] [place] [address] | | [place], [place] [address] Pt Name: RON Chaudhary | | MIKE Study Date/Time 03/15/2017 / 12:54:21 PMMRN: [id number] Most | | recent prior: -Acc #: [id number] No. previous echos: 0DOB: 1955 61 | | years Heart Rate: 145 bpmHeight: Blood Pressure: 90/67 | | mm/HgWeight: 249.0 lb Gender: MBSA: 2.34 m2 | | Order ID: [id number] Buffer Operator: Vahid Parmar RCSReferring Provider: | | Gaurav [...] values Report electronically signed by: | | [id number] Yajaira Johnson MD (03/15/2017, 3:38:52 PM) Final [...] | | | |Report electronically signed by: [id number] Yajaira Johnson MD (03/15/2017, 3:38:52 PM) | | | | | | | | Final | + + + + + + + | Performing | Address | City/State/Zipcode | Phone Number | | Organization | | | | + + + + + | [facility] | [address] | [place], [place] | | | CARDIOLOGY | [address] | [address] | | + + + + + X-RAY PORTABLE CHEST 1 VIEW (03/15/2017 12:46 PM PDT) + + | Specimen | + + | | + + + + + | Narrative | Performed At | + + + | STUDY: CA CHEST 1 VIEW 03/15/17 12:12:08 COMPARISON: None. [...] Interface - 03/15/2017 1:10 PM PDT STUDY: CA CHEST 1 | | VIEW 03/15/17 12:12:08COMPARISON: [...] DEPT OF | [id number] [address] | [place], [place] | | | CARDIOLOGY | [address] | [address] | | + + + + + [...] [facility] | [address] | [place] [address] | | | SERVICES, | [address] [...] [facility] | [address] | [place] [address] | | | SERVICES, | [address] [...] + + + + + | [facility] | [address] | [place] [address] | | | SERVICES, CORE | [address]ITH[address] [...] | + + + + + | [facility] | [address] | [place] [address] | | | ИРИНА ANTOINE | TABITHA [...] | + + + + + | [facility] | [address] | [place] [address] | | | SERVICES, | [address] [...] [facility] | [address] | [place] [address] | | | SERVICES, ИРИНА | TABITHA [...] [facility] | [address] | [place] [address] | | | SERVICES, CORE | TABITHA [...] [facility] | [address] | [place] [address] | | | SERVICES, CORE | P[address] [...] | | | LABORATORY | | | BULGARIAN | | | SERVICES, | | | [...] | + + + + + | [facility] | [address] | [place] [address] | | | SERVICES, CORE | [address] | | | + + + + + NC-ZI-VCT-HB,POC RT (03/15/2017 12:16 PM PDT) + + [...] [facility] | [address] | [place], [place] | | | [facility] | [facility] | [address] | | | TESTS | | | [...] | | | 03/15/17 at 1202, Until [facility] 04/02/17 | | | at 2030, [...] PDT | | | | | Until [facility] 04/02/17 at 203, | | | [...] | | | | | | Until [facility] 04/02/17 at 2030, severe | | [...] EVENING, | | | First dose on [facility] 04/02/17 at | | | 2100, Until Discontinued | | + +---+ | | | + +---+ documented in this encounter
--- OUTSIDE RECORDS SUMMARY | ~2019-02-08 | XMS | Encounter Summary ---
Demographics + + + | Address | [address] | | | [place] [address] | + + + | Home Phone | | + + + | Preferred Language | Unknown | + + + | Marital Status | | + + + | Gnosticism Affiliation | NRP | + + + | Race | White | + + + | Ethnic Group | Not or | + + + Author + + + | Author | [facility] | + + + | Organization | [facility] | + + + | Address | Unknown | + + + | Phone | Unavailable | + + + Support + + + + + | Name | Relationship | Address | Phone | + + + + + | Venice Will | ECON | [address] | | | | | [place] [address] | | + + + + + Care Team Providers + +------+ + | Care Diplomatic Interpreter Name | Role | Phone | + [...] [place] | | | | | | [facility] | | | | | | [place], [place] | | | | | | [address] | | | +--------+ + + + [...]
--- OUTSIDE RECORDS SUMMARY | ~2019-02-08 | XMS | Encounter Summary ---
Demographics + + + | Address | [address] | | | [place] [address] | + + + | Home Phone [...] | [place] | | | | | [address] | | + + + + + Care Team Providers + +------+ + | Care Bottom Pounder Cement Shoes Name | Role | Phone | [...] | | | involving | [address] | [place] | | | | | [place] | [place] [address]UIRE | [place] | | | | | coronary | [address] | [address] | | | | | artery of | Phone: | Phone: | | | | | [place] heart | [phone] | [phone] | | | | | without | Fax: | Fax: | | | | | angina | [phone] | [phone] | | | | | pectoris | | | + + + + + + + Encounter Details +--------+---------+ + + + | Date | Type | Department | Care Team | Description | +--------+---------+ + + + | 11/09/ | Office | [facility] | Randy Figueroa, | Coronary artery | | 2019 | Visit | MED CTR CARDIAC | MD [address] [place] | disease involving | | | | REHABILITATION [address] | [address] [place], | [place] coronary | | | | [address] [place] | [place] [address] | artery of [place] | | | | [place] [address] | [phone] | heart without angina | | | | [phone] | | pectoris (Primary | | | [...] of this encounter Progress Jonah Coker-Cheri Kendrick, STEWARD/STEWARDESS LOUNGE - 11/09/2018 1000 PSTFormatting of this note might be diff erent from the original. [facility] CARDIAC REHABILITATION [address] [facility] [address] Cardiac Rehab Date: 11/09/2018 Patient Information Patient Name: Bob Will Date of : 1955 Age: 63 y.o. Encounter Diagnoses Code Name Primary? I25.10 Coronary artery disease involving [place] coronary artery of [place] heart without angina pectoris Yes Number of [...] | 03/08/ | Office | Nephrology | [facility], | | | 2018 | Visit | | ADARSH [address] | | | | | | [address] [facility] | | | | | | [address] | | | | | | [id number] | | | | | | | | +--------+ + + + + | 03/24/ | Procedure | Cardiology | | | 2018 | visit | | | | +--------+ + + + + | 03/24/ | Office | Cardiology | Jenny, | | | 2018 | Visit | | HansaADARSH weldon [address] | | | | | | [place], | | | | | | [place] [address] | | | | | | [phone] | | | | | | | | +--------+ + + + + documented as of this encounter Visit Diagnoses + + | Diagnosis | + + | Coronary artery disease involving [place] coronary artery of [place] heart without | | angina pectoris - Primary | + + documented in this encounter"
--- OUTSIDE RECORDS SUMMARY | ~2019-02-08 | XMS | Encounter Summary ---
Demographics + + + | Address | [address] | | | [place] [address] | + + + | Home Phone | | + + + | Preferred Language | Unknown | + + + | Marital Status | | + + + | Amish Affiliation | NRP | + + + | Race | White | + + + | Ethnic Group | Not or | + + + Author + + + | Author | [facility] | + + + | Organization | [facility] | + + + | Address | Unknown | + + + | Phone | Unavailable | + + + Support + + + + + | Name | Relationship | Address | Phone | + + + + + | Venice Will | ECON | [address] | | | | | [place] [address] | | + + + + + Care Team Providers + +------+ + | Care Spot Man Name | Role | Phone | [...] at [facility] [place] | [place], [place] | Exam | | | | [address] [facility] | [address] | | | | | [facility] | | | | | | Mailcode: [id number] | | | | | | [facility] | | | | | | [place], [place] | | | | | | [address] | | | | | | [phone] | | | +--------+ + + + [...]
--- OUTSIDE RECORDS SUMMARY | ~2019-02-08 | XMS | Encounter Summary ---
Demographics + + + | Address | [address] | | | [place] [address] | + + + | Home Phone [...] [place] | | | | | [address] | | + + + + + Care Team Providers + +------+ + | Care Dock Guard Name | Role | Phone | [...] | Telephone | [facility] [place] | [facility] [place], | Medication Related | | 2018 | | CARDIOLOGY [address] | ADARSH Santo [address] | | | | | [place], | [place], | | | | | [place] [address] | [place] [address] | | | | | [phone] | [phone] | | | | | | | [...] | | | | | | [address] [place] [address], [place] | | | | | | [address] | | | | | | [address] | | | | | | | [...] | | | | | | [place] [address] | | | | | | [phone] | | | | | | | [...] | starting 11/30/2018 | | | | tel[place] coronary | until 12/01/2019 | | | | artery of [place] | | | | | heart without angina | | | | | pectoris | | + +--------+ + + documented as of this encounter Visit Diagnoses + + | Diagnosis | + + | Coronary artery disease involving [place] coronary artery of [place] heart without | | angina pectoris - Primary | + + documented in this encounter"
--- OUTSIDE RECORDS SUMMARY | ~2019-02-08 | XMS | Encounter Summary ---
Demographics + + + | Address | [address] | | | [place] [address] | + + + | Home Phone [...] | [place] | | | | | [address] | | + + + + + Care Team Providers + +------+ + | Care Tube Filler Name | Role | Phone | [...] | | | involving | [address] | [place] | | | | | [place] | MARK[place] MCGUIRE | [place]ocha | | | | | coronary | [address] | [address] | | | | | artery of | Phone: | Phone: | | | | | [place] heart | [phone] | [phone] | | | | | without | Fax: | Fax: | | | | | angina | [phone] | [phone] | | | | | pectoris | | | + + + + + + + Encounter Details +--------+---------+ + + + | Date | Type | Department | Care Team | Description | +--------+---------+ + + + | 11/30/ | Office | [facility] | Carolina Randy, | Coronary artery | | 2019 | Visit | MED CTR CARDIAC | MD [address] [place] | disease involving | | | | REHABILITATION [address] | [address] [place], | [place] coronary | | | | [address] [place] | [place] [address] | artery of [place] | | | | [place] [address] | [phone] | heart without angina | | | | [phone] | | pectoris (Primary | | | [...] might be different from the orig [facility] CARDIAC REHABILITATION [address] [facility] [address] Cardiac Rehab Date: 11/30/2018 Patient Information Patient Name: Bob Will Date of : 1955 Age: 63 y.o. Encounter Diagnoses Code Name Primary? I25.10 Coronary artery disease involving [place] coronary artery of [place] heart without angina pectoris Yes Z98.61 Post [...] | 03/08/ | Office | Nephrology | [facility], | | | 2018 | Visit | | [address]ARSH [address] | | | | | | [address] [facility] | | | | | | [address] | | | | | | [id number] | | | | | | | | +--------+ + + + + | 03/24/ | Procedure | Cardiology | | | | 2019 | visit | | | | +--------+ + + + + | 03/24/ | Office | Cardiology | Jenny, | | | 2018 | Visit | | ADARSH Santo [address] | | | | | | [place], | | | | | | [place] [address] | | | | | | [phone] | | | | | | | | +--------+ + + + + documented as of this encounter Visit Diagnoses + + | Diagnosis | + + | Coronary artery disease involving [place] coronary artery of [place] heart without | | angina pectoris - Primary | + + | Post PTCA Postsurgical percutaneous transluminal coronary angioplasty status | + + documented in this encounter"
--- OUTSIDE RECORDS SUMMARY | ~2019-02-08 | XMS | Encounter Summary ---
Demographics + + + | Address | [address] | | | [place] [address] | + + + | Home Phone [...] [place] | | | | | [address] | | + + + + + Care Team Providers + +------+ + | Care Farm Agent Name | Role | Phone | + +------+ + | Young Haque DO | PCP | | + +------+ + Encounter Details +--------+ + + + + | Date | Type | Department | Care Team | Description | +--------+ + + + + | 03/28/ | Abstract | [facility] [place] | Jenny, | | | 2019 | | CARDIOLOGY [address] | Hansa GROUNDS CARETAKER [address] | | | | | [place], | [place], | | | | | [place] [address] | [place] [address] | | | | | [phone] | | | | | | | [...] | | | [address] , [facility] | | | | | | [address] | | | | | | [address] | | | | | | | | +--------+ + + + + | 03/24/ | Procedure | Cardiology | | | | 2018 | visit | | | | +--------+ + + + + | 03/24/ | Office | Cardiology | Jenny, | | | 2018 | Visit | | ADARSH Santo [address] | | | | | | [place], | | | | | | [place] [address] | | | | | | [phone] | | | | | | | [...]
--- OUTSIDE RECORDS SUMMARY | ~2019-02-08 | XMS | Encounter Summary ---
Demographics + + + | Address | [address] | | | [place] [address] | + + + | Home Phone [...] [place] | | | | | [address] | | + + + + + Care Team Providers + +------+ + | Care Upholsterer Outside Name | Role | Phone | + [...] Monitor | CARDIOLOGY [address] | [address] | Interrogation | | | | [place], | [place], | (Primary Dx); FRONT END MANAGER-D | | | | [place] [address] | [place] [address] | (AICD) [employer] | | | | [phone] | [phone] | 10/16/17 [facility]; | | | | | [...] [place] | | | | | | [address] | | | | | | | [...] | | | | | | [place] [address] | | | | | | [phone] | | | | | | | [...] | e | 23:59 PDT | Interrogation FRONT END MANAGER-D | procedure are in the | | REMOTE | | | ([facility]) [employer] | results section. | [...] remote PDF scanned into | | | [facility] for remote interrogation results. Data [...] | cardiac defibrillator | + + | FRONT END MANAGER-D (ZANED) [employer] 10/16/17 [facility] | + + | Ischemic cardiomyopathy Other specified forms of chronic ischemic heart disease | + + documented in this encounter"
--- OUTSIDE RECORDS SUMMARY | ~2019-02-08 | XMS | Encounter Summary ---
Demographics + + + | Address | [address] | | | [place] [address] | + + + | Home Phone [...] | [place] | | | | | [address] | | + + + + + Care Team Providers + +------+ + | Care Ignition Mechanic Name | Role | Phone | [...] | | involving | [address] | [place] | | | | | [place] | [place] | [place] | | | | | coronary | [address] | [address] | | | | | artery of | Phone: | Phone: | | | | | [place] heart | [phone] | [phone] | | | | | without | Fax: | Fax: | | | | | angina | [phone] | [phone] | | | | | pectoris | | | + + + + + + + Encounter Details +--------+---------+ + + + | Date | Type | Department | Care Team | Description | +--------+---------+ + + + | 12/07/ | Office | [facility] | Randy Figueroa, | Coronary artery | | 2019 | Visit | MED CTR CARDIAC | MD [address] [place] | disease involving | | | | REHABILITATION [address] | [address] [place], | [place] coronary | | | | [address] [place] | [place] [address] | artery of [place] | | | | [place] [address] | [phone] | heart without angina | | | | [phone] | | pectoris (Primary | | | [...] [facility] CARDIAC REHABILITATION [address] [facility] [address] Cardiac Rehab Date: 12/07/2018 Patient Information Patient Name: Bob Will Date of : 1955 Age: 63 y.o. Encounter Diagnoses Code Name Primary? I25.10 Coronary artery disease involving [place] coronary artery of [place] heart without angina pectoris Yes Z98.61 Post [...] | 03/08/ | Office | Nephrology | [facility], | | | 2018 | Visit | | ADARSH [address] | | | | | | [address] , [facility] | | | | [...] | | | | | | [place], | | | | | | [place] [address] | | | | | | [phone] | | | | | | | [...]
--- OUTSIDE RECORDS SUMMARY | ~2019-02-08 | XMS | Encounter Summary ---
Demographics + + + | Address | [address] | | | [place] [address] | + + + | Home Phone [...] [place] | | | | | [address] | | + + + + + Care Team Providers + +------+ + | Care Senior Cytogenetics Laboratory Director Name | Role | Phone | [...] | Telephone | [facility] [place] | [place], | Medication Related | | 2018 | | CARDIOLOGY [address] | ADARSH Santo [address] | | | | | [place], | [place], | | | | | [place] [address] | [place] [address] | | | | | [phone] | [phone] | | | | | | | [...] | | | | | | [address] [place] [address], [place] | | | | | | [address] | | | | | | [address] | | | | | | | [...] | | | | | | [place] [address] | | | | | | [phone] | | | | | | | [...] | starting 11/30/2018 | | | | [place] coronary | until 12/01/2019 | | | | artery of [place] | | | | | heart without angina | | | | | pectoris | | + +--------+ + + documented as of this encounter Visit Diagnoses + + | Diagnosis | + + | Coronary artery disease involving [place] coronary artery of [place] heart without | | angina pectoris - Primary | + + documented in this encounter"
--- OUTSIDE RECORDS SUMMARY | ~2019-02-08 | XMS | Encounter Summary ---
Demographics + + + | Address | [address] | | | [place] [address] | + + + | Home Phone [...] [place] | | | | | [address] | | + + + + + Care Team Providers + +------+ + | Care Production Supervisor Off Shift Name | Role | Phone | + [...] | | | involving | [address] | [place] | | | | | [place] | [address] | [place] | | | | | coronary | [address] | [address] | | | | | artery of | Phone: | Phone: | | | | | [place] heart | [phone] | [phone] | | | | | without | Fax: | Fax: | | | | | angina | [phone] | [phone] | | | | | pectoris | | | + + + + + + + Encounter Details +--------+---------+ + + + | Date | Type | Department | Care Team | Description | +--------+---------+ + + + | 12/09/ | Office | [facility] | Randy Figueroa, | Coronary artery | | 2019 | Visit | MED CTR CARDIAC | MD [address] [place] | disease involving | | | | REHABILITATION [address] | [place], | [place] coronary | | | | [address] [place] | [place] [address] | artery of [place] | | | | [place] [address] | [phone] | heart without angina | | | | [phone] | | pectoris (Primary | | | [...] orig [facility] CARDIAC REHABILITATION [address] [facility] [address] Cardiac Rehab Discharge Date: 12/09/2018 Patient Information Patient Name: Bob Will Date of : 1955 Age: 63 y.o. Referring Provider: Randy Figueroa MD Encounter Diagnoses Code Name Primary? I25.10 Coronary artery disease involving [place] coronary artery of [place] heart without angina pectoris Yes Z98.61 Post PTCA Cardiac Rehab Phase II Leon atment Plan Bob Will (Bob) is a 62 y.o. 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 He has recently increased his metoprolol dose and is on Entresto. He arrives in electric Apex Guard heelchair and has been inactive. Fall Ri [...] control. Also began walking with his around [employer] 3 days a week along with chasing [...] Healthy Dietary Education Date: 08/03/18 -Referral to Fence Setter: Date: -DVD: Healthy Eating For Life Date: [...] exercise until stable. Date: Range: -Referral to Sweatband Maker Date: Education Points listed below- Date Completed: [...] Unforeseen circumstances makes the constant trip from [place] to not be a viable option a [...] | Nephrology | Lit[place], | | | 2018 | Visit | | ADARSH [address] | | | | | | [address] [place] [place] | | | | | | [address] | | | | | | [address] | | | | | | | [...] | | | | | | [place] [address] | | | | | | [phone] | | | | | | | | +--------+ + + + + documented as of this encounter Visit Diagnoses + + | Diagnosis | + + | Coronary artery disease involving [place] coronary artery of [place] heart without | | angina pectoris - Primary | + + | Post PTCA Postsurgical percutaneous transluminal coronary angioplasty status | + + documented in this encounter
--- OUTSIDE RECORDS SUMMARY | ~2019-02-08 | XMS | Encounter Summary ---
Demographics + + + | Address | [address] | | | [place] [address] | + + + | Home Phone [...] | | | | | [place] [address] | | + + + + + Care Team Providers + +------+ + | Care Quality Assurance Associate Name | Role | Phone | + +------+ + | Chato Matson MD | PCP | | + +------+ + Encounter Details +--------+ + + + + | Date | Type | Department | Care Team | Description | +--------+ + + + + | 03/31/ | Document-Sc | Health Information | Other, Faculty | | | 2017 | anned | Services [address] | [phone] | | | | | [address] | | | | | | Road Mailcode: | | | | | | [address] [place] [address] | | | | | | [facility] | | | | | | [place], [place] | | | | | | [address] | | | | | | [phone] | | | +--------+ + + + [...]
--- OUTSIDE RECORDS SUMMARY | ~2019-02-08 | XMS | Encounter Summary ---
Demographics + + + | Address | [address] | | | [place] [address] | + + + | Home Phone [...] [place] | | | | | [address] | | + + + + + [...] | 12/06/ | Refill | [facility] [place] | Jenny, | Medication Refill | | 2018 | | CARDIOLOGY [address] | ADARSH Santo [address] | | | | | [place], | [place], | | | | | [place] [address] | [place] [address] | | | | | [phone] | [phone] | | | | | | | [...] [place] | | | | | | [address] [...] | | | | | | [place] [address] | | | | | | [phone] | | | | | | | | +--------+ + + + + documented as of this encounter Visit Diagnoses Not on filedocumented in this encounter"
--- OUTSIDE RECORDS SUMMARY | ~2019-02-08 | XMS | Encounter Summary ---
Demographics + + + | Address | [address] | | | [place] [address] | + + + | Home Phone [...] | [place] | | | | | [address] | | + + + + + Care Team Providers + +------+ + | Care Automobile Body Repair Supervisor Name | Role | Phone | [...] | | | involving | [address] | [place] | | | | | [place] | [place]UI[place] | [place] | | | | | coronary | [address] | [address] | | | | | artery of | Phone: | Phone: | | | | | [place] heart | [phone] | [phone] | | | | | without | Fax: | Fax: | | | | | angina | [phone] | [phone] | | | | | pectoris | | | + + + + + + + Encounter Details +--------+---------+ + + + | Date | Type | Department | Care Team | Description | +--------+---------+ + + + | 12/07/ | Office | [facility] | Randy Figueroa, | Coronary artery | | 2019 | Visit | MED CTR CARDIAC | MD [address] | disease involving | | | | REHABILITATION [address] | [place], | [place] coronary | | | | [address] [place] | [place] [address] | artery of [place] | | | | [place] [address] | [phone] | heart without angina | | | | [phone] | | pectoris (Primary | | | [...] note might be different from the orig [facility] CARDIAC REHABILITATION [address] [facility] [address] Cardiac Rehab Date: 12/07/2018 Patient Information Patient Name: Bob Will Date of : 1955 Age: 63 y.o. Encounter Diagnoses Code Name Primary? I25.10 Coronary artery disease involving [place] coronary artery of [place] heart without angina pectoris Yes Z98.61 Post [...] | 03/08/ | Office | Nephrology | [facility], | | | 2018 | Visit | [...] W | | | | | | [place], | | | | | | [place] [address] | | | | | | [phone] | | | | | | | | +--------+ + + + + documented as of this encounter Visit Diagnoses + + | Diagnosis | + + | Coronary artery disease involving [place] coronary artery of [place] heart without | | angina pectoris - Primary | + + | Post PTCA Postsurgical percutaneous transluminal coronary angioplasty status | + + documented in this encounter"
--- OUTSIDE RECORDS SUMMARY | ~2019-02-08 | XMS | Encounter Summary ---
Demographics + + + | Address | [address] | | | [place] [address] | + + + | Home Phone [...] + + + | Author | [facility] | + + + | Organization | [facility] | + + + | Address | Unknown | + + + | Phone | Unavailable | + + + Support + + + + + | Name | Relationship | Address | Phone | + + + + + | Venice Mckeon | ECON | [address] | | | | | [place] [address] | | + + + + + Care Team Providers + +------+ + | Care Screener Perfumer Name | Role | Phone | + [...] | 2018 | Encounter | Services at [facility] | | | | | | [address] [facility] | | | | | | [facility] | | | | | | Mailcode: [address] | | | | | | [facility]ly [facility] | | | | | | [place], [place] | | | | | | [address] | | | | | | [phone] | | | +--------+ + + + [...] | + + + | Report ====== Motor Transport Inspector: Rodríguez Fortune ([id number]), shubham | [facility] | | richy Clinical Application Specialist: shubham lockhart Fellow: shubham lockhart | RADIOLOGY | | Signalling And Communications Engineer: shubham lockhart Viewer: shubham lockhart Report Date: | CARDIAC IMAGING | | Oct 2017, 09:22:25 PST Patient ------- Patient: RON MCKEON | | | Acc #: [id number] | | | Ethnicity: N Status: Final [...] | | | Image Quality: Good Scanner In Flight Refueling System Repairer: [email or web address] Scanner | | | Model: KAL Scanner Serial Number: [id number] Scanner Software | | | Platform: 5.3.15.3.1.0 Staff: Rodríguez Fortune Modality: MR | | | Indication Name: routine Protocol Name: CMR W Flows WO Contrast | | | Findings -------- Non-cardiac findings were reviewed by Dr. Curtis. | | | This exam was terminated prematurely and is lmiited to vice president diversity images. | | | There are bilateral [...] - 10/16/2017 9:22 AM PST | | Report======Motor Transport Inspector: Rodríguez Fortune ([id number]), shubham Rodriguezalyst: shubham | | Zackeryow: shubham Beckician: shubham Beckwithwer: shubham | | Judiort Date: 16 Oct 2017, 09:22:25 PSTPatient-------Patient: RON MCKEON | | JMedical Record Number: [id number] ID: [id number] #: [id number]: NStatus: | | Final ReportReport Number: [id number]: MaleBirthdate: 1955 (61 yrs)Study Date: 05 | | Oct 2017Study Description: CMR with Flows with ContrastReferring Physician: RAJIV | | HEITNERBlood Pressure: /Heart rate:Height (cm): 0Weight (kg): 89BMI (kg/m ): 0BSA | | (m ): 0 (Mosteller Formula)Image Quality: Kiko In Flight Refueling System Repairer: [employer] | | [employer] Model: [employer] Serial Number: [id number] Software Platform: | | 5.3.15.3.1.0Staff: Rodríguez FortuneModality: MRIndication Name: routineProtocol Name: | | CMR W Flows WO ContrastFindings--------Non-cardiac findings were reviewed by | | Ever.This exam was terminated prematurely and is lmiited to vice president diversity images.There are | | bilateral pleural effusions. [...] Formula) | |Image Quality: Good | |Scanner In Flight Refueling System Repairer: [email or web address] | |Scanner Model: KAL | |Scanner Serial Number: [id number] | |Scanner Software Platform: 5.3.15.3.1.0 | |Staff: Rodríguez Fortune | |Modality: MR | |Indication Name: routine | |Protocol Name: CMR W Flows WO Contrast | |Findings | |-------- | |Non-cardiac findings were reviewed by Dr. Curtis. | |This exam was terminated prematurely and is lmiited to vice president diversity images. | |There are bilateral pleural effusions. [...]
--- OUTSIDE RECORDS SUMMARY | ~2019-02-08 | XMS | Clinical Summary ---
Demographics + + + | Address | [address] [place] [address] [address] | | | [place] [address] | + + + | Home Phone | | + + + | Preferred Language | Unknown | + + + | Marital Status | | + + + | Cheondoism Affiliation | Unknown | + + + | Race | Unknown | + + + | Ethnic Group | Unknown | + + + Author + + + | Author | Cassandra Navegg | + + + | Organization | [facility] | + + + | Address | Unknown | + + + | Phone | Unavailable | + + + Support + + +---------+ + | Name | Relationship | Address | Phone | + + +---------+ + | [place] Mckeon | ECON | Unknown | | + + +---------+ + Care Team Providers + +------+ + | Care Catcher Plug Name | Role | Phone | + [...] + + | Father | | | [place] | | | | (Age | | [...] +------+-------+ + | MEDICAID | SAIMA | [id number] | | | [address] | | | N | | | | [place], [place] | | | [place] | | | | [address] | | | ENERGY AUDITOR | | | | | + +--------+ [...] | Self [birth year] Home: | [address] | | | al/Fam | | [phone] [address] [place], | | | [place] | | | [address] | [place] [address] | + +--------+ +--------+ + +
--- OUTSIDE RECORDS SUMMARY | ~2019-02-08 | XMS | Encounter Summary ---
Demographics + + + | Address | [address] | | | [place] [address] | + + + | Home Phone [...] | | | | | [place] [address] | | + + + + + Care Team Providers + +------+ + | Care Supervising Architect Name | Role | Phone | [...] | DECANNULATION | | 2017 | | [facility] | [address] | | | | | Admitting Desk | Tabitha Alicea UPPER TRACT, | | | | | Located on the | [place] [address] | | | | | floor [address] [facility] | [phone] | | | | | [address] | | | | | | [place], [place] | | | | | | [address] | | | +--------+---------+ + + + [...] DISCHARGE SUMMARY [facility] Discharging Provider: Aria Rojas MD Discharging Attending [...] follow up ludmila miller with a local psychologist personnel in [place]. #Acute cardiogenic shock in the setting ofSTEMI [...] 44 to 32 during first day at [facility] , with addition decline to 24 [...] (noted on o utside records). Patient on Camden 10/325 q8 as outpatient. Was receiving scheduled [...] Number [facility] Yes [address] [place] [address] Medina Roger RN 04/02/2017 11:31 Medina Roger RN, 04/02/2017 11:28 AM: Spoke with Latricia, 7 day auth # [id number] has been provided. Contacted Tanisha at facility [phone], arranging anticipated medicaid transport by stretcher at 2 pm today. Spoke with patient and souse concerning dc; they are both in agreement. Medina Roger RN, 04/02/2017 9:20 AM: Contacted Latricia Landry [phone] referencing auth# for SNF placement. Medina Roger RN, 04/01/2017 11:42 AM: Spoke with Malathi [phone], at facility admissions. Patient is accepted to facility. Prov ided information for information registered medical transcriptionist with [facility] Fed Latricia Landry [phone], Tanisha moncada pursue auth and get back to me. F&MS working with patient and family to add Medicaid ser vices to benefits. When added patient will have travel benefit. CM contacted Shahab Holman re [employer] training. Tamia Van, RN, 03/30/2017 1:21 PM: Received VM from Emily Terrell CM with [facility] to send referral to this location . Referral made, awaiting response. Follow Up: Schedule the following appointment(s) when you get home Follow up with [facility] . Specialties: Nursing Home Facility, Intermediate Care Facility Contact information [address] [place] [address] Follow up with LAUREN CHESTER MD. Go on 04/07/2017. Specialty: Cardiology Why: at 8:30 AM to establish Cardiology follow up Contact information [facility] [address] [address] Aria Rojas MD Division of Hospital Medicine [facility] I spent 60 minutes on discharge activities [...] and chronic pain who was transferred to [facility] on 03/15 s/p STEMI with cardiogeni [...] will need Life Vest follow up with psychologist personnel in [place] on discharge - appr critical access hospital cardiology assistance with coordinating. -Will f/u [...] hematoma, but possibly some candidal infection/intertrigo. On Camden 10 Q8H as an outp atient. -Continue [...] 44 to 32 during first day at [facility], with addition decline to 24 th [...] Aria Rojas MD Division of Hospital Medicine [facility] Pager [phone] I spent 36 minutes on the patient [...] and chronic pain who was transferred to [facility] on 03/15 s/p STEMI with cardiogeni [...] will need Life Vest follow up with psychologist personnel in [place] on discharge - appr critical access hospital cardiology assistance with coordinating. Hyperkalemia Resolved [...] hematoma, but possibly some candidal infection/interrigo. On [place]den Q8H as an outpa tient. -Continue nystatin [...] discharge. -CM looking for skilled placement in [place] near patient's home; appreciate assistance At risk for malnutrition Very little PO intake but reportedly improving. Previously had dobhoff feeding tube in the CVICU.Nutrition assistance appreciated. -Calorie count ongoing -Encouraging PO intake Normocytic anemia Hct dropped abruptly from 44 to 32 during first day at [facility], with addition decline to 24 th [...] Aria Rojas MD Division of Hospital Medicine [facility] Pager [phone] I spent 36 minutes on the patient encounter today, >50% in counseling of the patient's on the above plan of care and in coordination of care on the arizmendi with nursing and [facility]. Ariana Ivy DO - 03/30/2017 5:49 PM PDT CLINICAL HOSPITALIST SERVICE PROGRESS NOTE PATIENT'S NAME/MRN: Ron Mckeon/[id number] HOSPITAL DAY: #15 24-HOUR EVENTS & SUBJECTIVE: -patient complained of typical anginal chest pain and had STEMI code last night, anterior S T elevation on serial EKGs, given 325mg ASA, started on heparin drip (had been turned off fo r JAVON thrombus yesterday afternoon with warfarin therapeutic), patient went to the labor contract analyst -on angiography, interventionalists noted "patent stent traversing [...] daily - Patient will follow up with psychologist personnel in [place] on discharge; appreciate cardiolo gy assistance with [...] stenosis (noted on o utside records, on [place] q8 as outpatient) Improved today -continue oxycodone [...] discharge. -CM looking for skilled placement in [place] near patient's home; appreciate assistance #Risk for malnutrition Very little PO intake, improving today. Previously had dobhoff feeding tube in the CVICU.Nu trition assistance appreciated. -Calorie count ongoing -Encouraging PO intake #Anemia, normocytic Pt noted to have anemia on H&P. Hct dropped abruptly from 44 to 32 during first day at [facility] , with addition decline to 24 [...] assistance Barriers for DC: delivery/approval of lifevest, [facility] bed Ariana Bose DO [employer] and marketing intern Clinical Hospitalist and Medicine Teaching Service Division of Hospital Medicine [facility] Pager [phone] [facility] DEPARTMENT: Hosp- [phone] Place of Service: - Date of Service: 03/26/2017 CSN: [id number] Modifiers:GC Resident Involved: Yes Suggested CPT: 25507 Subsequent Visit Detailed/High complexity 35 min Cristi [...] patient's significant recent UT, we activated the labor contract analyst. Patient received 325 mg ASA at bedside and was briefly on heparin which has since been disc ontinued. Per cardiology will continue daily 81 mg ASA, plavix and warfarin. Continue to t rend troponins as well. I spent 30 minutes with this patient with >50% of the time evaluating patient at the [facility] e on numerous occasions, evaluating studies and coordinating care w/ cardiology.Electronical ly signed by Ivette Chaudhry MD at 03/30/2017 6:24 AM Gerson Oseguera MD - 03/30/2017 4:31 AM PDTCardiology Preliminary Procedure Note (Full report to follow) Primary Care Provider: Jamal Guerrero MD Referring Provider: No Referring Provider Per Patient Automation Qtp Tester Staff: Katarina Ngo M.D. Procedure(s): Coronary Angiography [...] None Complications: None Hemostasis: Manual compression in labor contract analyst. Site: [facility] Recommendations: Patient Status: Inpatient Usual post cath care. Ariana Ivy D O - 03/29/2017 9:30 AM PDT CLINICAL HOSPITALIST SERVICE PROGRESS NOTE PATIENT'S NAME/MRN: Ron Mckeon/[id number] HOSPITAL DAY: #14 24-HOUR EVENTS & SUBJECTIVE: [...] stenosis (noted on o utside records, on Cam[place] 10/ q8 as outpatient) -continue oxycodone 10mg [...] 44 to 32 during first day at [facility] , with addition decline to 24 [...] arm, midline left arm Ariana Bose DO [employer] and marketing intern Clinical Hospitalist and Medicine Teaching Service Division of Hospital Medicine [facility] Pager [phone] [facility] DEPARTMENT: Hosp- [phone] Place of Service: - Date of Service: 03/26/2017 CSN: [id number] Modifiers:GC Resident Involved: Yes Suggested CPT: 08044 Subsequent Visit Detailed/High complexity 35 min Ariana Ivy DO - 03/28/2017 8: 06 AM PDT CLINICAL HOSPITALIST SERVICE PROGRESS NOTE PATIENT'S NAME/MRN: Ron Mckeon/[id number] HOSPITAL DAY: #13 24-HOUR EVENTS & SUBJECTIVE: [...] tablet 1,000 Units, 1,000 Units, oral, DAILY, mAol Alvarado MD, 1,000 Units at 03/27/17 0942 [...] stenosis (noted on o utside records, on [place] 10 q8 as outpatient) Improving L groin [...] 44 to 32 during first day at [facility] , with addition decline to 24 [...] the high side at admission, declined to marliee of 68 03/17 concerning for destructive +/- [...] arm, midline left arm Ariana Bose DO [employer] and marketing intern Clinical Hospitalist and Medicine Teaching Service Division of Hospital Medicine [facility] Pager [phone] [facility] DEPARTMENT: Hosp- [phone] Place of Service: - Date of Service: 03/26/2017 CSN: [id number] Modifiers:GC Resident Involved: Yes Suggested CPT: 04536 Subsequent Visit Detailed/High complexity 35 min Ariana [...] 60 mg, intravenous, BID ( and ), Garuav Hobbs PA-C, 60 mg at 03/26/17 1654 [...] 44 to 32 during first day at [facility] , with addition decline to 24 [...] arm, midline left arm Ariana Bose DO [employer] and marketing intern Clinical Hospitalist and Medicine Teaching Service Division of Hospital Medicine [facility] Pager [phone] [facility] DEPARTMENT: Hosp- [phone] Place of Service: - Date of Service: 03/26/2017 CSN: [id number] Modifiers:GC Resident Involved: Yes Suggested CPT: 93160 Subsequent Visit Detailed/High complexity 35 min Chapis [...] 44 to 32 during first day at [facility] , with addition decline to 24 [...] arm, midline left arm Ariana Bose DO [employer] and marketing intern Clinical Hospitalist and Medicine Teaching Service Division of Hospital Medicine [facility] Pager [phone] [facility] DEPARTMENT: Hosp- [phone] Place of Service: - Date of Service: 03/26/2017 CSN: [id number] Modifiers:GC Resident Involved: Yes Suggested CPT: 64190 Subsequent Visit Detailed/High complexity 35 min Wan Cano MD - 03/25/2017 3:07 PM PDT . Cardiovascular Intensive Care Unit Attending Progress Note CVICU D2 Assigned #[id number] ICU Admission Reason Most Recent Value ICU [...] artery. ANY X2 placed in outs surinder labor contract analyst along with IABP. Arrived in cardiogenic shock, [...] Pager Mellisa Haji MD Admitting Provider Cardiology 00914 Zelalem Del Toro MD ICU PM Attending Anesthesiology 09709 Code Status Code Status Full Code The Advanced Care Note for this patient can be found under the notes tab in chart review. Quality section Reardon necessity reviewed: Hourly/Accurate measurement of urinary output for clinical manage ment of critically ill patients Wan Deleon MD, JOHN, ERVIN Cardiovascular Intensive Care Unit [address] [address] I have spent a total of 38 [...] xceptions/additions as noted. Date of Service: 03/25/2017 [facility] DEPARTMENT: ANE ICU CARDIAC Place of Service:- Inpatient CSN: [id number] Suggested Modifier: GC - Resident Involved Suggested CPT: TO DENTAL DETAIL REPRESENTATIVE Jose Ramon Khan MD - 03/24/2017 10:54 AM PDT . Cardiovascular Intensive Care Unit Team Progress Note CVICU D2 Assigned #[id number] ICU Admission Reason Most Recent Value ICU [...] artery. ANY X2 placed in outs surinder labor contract analyst along with IABP. Arrived in cardiogenic shock, [...] & Plan Patient went into VFib during labor contract analyst procedure at [facility]. Was shocked 17 times Targeted temperature management [...] Patient was difficult intubation at outside labor contract analyst. -secretions improving, cough strong -s/p 7 days [...] Pager Mellisa Haji MD Admitting Provider Cardiology 10172 Zelalem Del Toro MD ICU PM Attending Anesthesiology 61011 The Advanced Care Note for this patient [...] Ramon Alvarado MD Author:Jose Ramon Alvarado MD [address] [address]Pwdoekoktlnwdr signed by Jose Ramon Alvarado MD at 03/24/2017 11:00 AM Wan Cano MD - 03/24/2017 9:47 AM PDTFormatting of this note might be diff erent from the original. Cardiovascular Intensive Care Unit Attending Progress Note CVICU D2 Assigned #[id number] ICU Admission Reason Most Recent Value ICU [...] artery. ANY X2 placed in outs surinder labor contract analyst along with IABP. Arrived in cardiogenic shock, [...] Pager Mellisa Haji MD Admitting Provider Cardiology 19960 Zelalem Del Toro MD ICU PM Attending Anesthesiology 24508 Code Status Code Status Full Code The Advanced Care Note for this patient can be found under the notes tab in chart review. Quality section Reardon necessity reviewed: Hourly/Accurate measurement of urinary output for clinical manage ment of critically ill patients Wan Deleon MD, JOHN, ERVIN Cardiovascular Intensive Care Unit [address] [address] I have spent a total of 42 [...] xceptions/additions as noted. Date of Service: 03/24/2017 [facility] DEPARTMENT: ANE ICU CARDIAC Place of Service:- Inpatient CSN: [id number] Suggested Modifier: GC - Resident Involved Suggested CPT: TO DENTAL DETAIL REPRESENTATIVE Author:Wan Deleon Md, MD [address] [address]Cfimkukwoedhsm signed by Wan Deleon MD at 03/24/2017 9:49 AM PDTToTamia lieberman PA-C - 03/23/2017 11:54 PM PDTFormatting of this note might be diff erent from the original. Cardiovascular Intensive Care Unit Clinical Update Note Team: D2 Team Pager: [phone] Attending: Katey Pt Name: Ron Mckeon ID: Abbreviated HPI Abbreviated HPI / Daily Assessment Ron Mckeon is a 61 year old man with acute cardiogenic shock in the setting of acu te STEMI from thrombosed left main coronary artery. Initially had lesion in proximal LAD and distal LM, but then acutely thrombosed his left main coronary artery. ANY X2 placed in outs surinder labor contract analyst along with IABP. Arrived in cardiogenic shock, [...] Unit Team Progress Note CVICU D2 Assigned #[id number] ICU Admission Reason Most Recent Value ICU [...] artery. ANY X2 placed in outs surinder labor contract analyst along with IABP. Arrived in cardiogenic shock, [...] & Plan Patient went into VFib during labor contract analyst procedure at [facility]. Was shocked 17 times Targeted temperature management [...] Patient was difficult intubation at outside labor contract analyst. -fevering nightly, cultures negative, WBC stable -secretions [...] Pager Mellisa Haji MD Admitting Provider Cardiology 21410 The Advanced Care Note for this patient [...] Ramon Alvarado MD Author:Jose Ramon Alvarado MD [address] [address] [place] [address]Itubkkddqvbqsq signed by Jose Ramon Alvarado MD at 03/23/2017 11:41 AM Wan Cano MD - 03/23/2017 9:51 AM PDTFormatting of this note might be diff erent from the original. Cardiovascular Intensive Care Unit Attending Progress Note CVICU D2 Assigned #[id number] ICU Admission Reason Most Recent Value ICU [...] artery. ANY X2 placed in outs surinder labor contract analyst along with IABP. Arrived in cardiogenic shock, [...] Pager Mellisa Haji MD Admitting Provider Cardiology 53633 Code Status Code Status Full Code The [...] JOHN, ERVIN Cardiovascular Intensive Care Unit [address] [address] I have spent a total of 44 [...] xceptions/additions as noted. Date of Service: 03/23/2017 [facility] DEPARTMENT: [facility] ICU CARDIAC Place of Service:- Inpatient CSN: [id number] Suggested Modifier: GC - Resident Involved Suggested CPT: TO DENTAL DETAIL REPRESENTATIVE Tamia De La Paz PA-C - 03/22/2017 7:58 PM PDT . Cardiovascular Intensive Care Unit Clinical Update Note Team: D2 Team Pager: [phone] Attending: Abdulaziz Merrill Name: Ron Mckeon ID: [...] Unit Attending Progress Note CVICU D2 Assigned #[id number] ICU Admission Reason Most Recent Value ICU [...] Pager Mellisa Haji MD Admitting Provider Cardiology 59031 Code Status Code Status Full Code Quality section A-Line necessity reviewed: Odsa-bn-jczx blood pressure monitoring Reardon necessity reviewed: Hourly/Accurate [...] Date of Service: 03/22/2017 Author:Anurag Ashby MD [address] [address]Jczfemhrdlbhre signed by Anurag Ashby MD at 03/22/2017 11:07 AM P Macho Sellers MD - 03/22/2017 11:00 AM PDT Cardiovascular Intensive Care Unit Team Progress Note CVICU D2 Assigned #[id number] ICU Admission Reason Most Recent Value ICU [...] & Plan Patient went into VFib during labor contract analyst procedure at [facility]. Was shocked 17 times Targeted temperature management [...] Patient was difficult intubation at outside labor contract analyst. -vanc zosyn stopped 03/17 -fever 38.3 last [...] Pager Mellisa Haji MD Admitting Provider Cardiology 54768 This patient does not have an Advanced Care Note for this Admission. Please use the Goal of care section of your ICU navigator to document the advanced care discussion. Quality section A-Line necessity reviewed: Qban-vu-djou blood pressure monitoring Reardon necessity reviewed: Hourly/Accurate measurement of urinary output for clinical manage ment of critically ill patients FAST HUG Feeding: Tube Feeds: Replete @ 55 mL/hr Analgesia: APAP, hydromorphone PRN Sedation: N/A Thromboprophylaxis: Heparin infusion Head of Bed: Head of Bed >30 degrees Ulcer Prophylaxis: Famotidine Glycemic Control: insulin infusion Created by Macho Gaytan MD Author:Macho Gaytan MD [address] [address]Evynjgjkqwfaqn signed by Macho Gaytan MD at 03/23/2017 12:35 PM PDTT Tamia leon PA-C - 03/21/2017 7:02 PM PDTFormatting of this note might be different f rom the original. Cardiovascular Intensive Care Unit Clinical Update Note Team: D2 Team Pager: [phone] Attending: Abdulaziz Merrill Name: Ron Mckeon ID: [...] Opens eyes, nods head. Follows commands for student development specialist and Plan: Hospital Problems Priority POA Head/Neck [...] Unit Team Progress Note CVICU D2 Assigned #[id number] ICU Admission Reason Most Recent Value ICU [...] & Plan Patient went into VFib during labor contract analyst procedure at [facility]. Was shocked 17 times Targeted temperature management [...] Patient was difficult intubation at outside labor contract analyst. -vanc zosyn stopped 03/17 -fever 38.3 last [...] Pager Mellisa Haji MD Admitting Provider Cardiology 53294 This patient does not have an Advanced Care Note for this Admission. Please use the Goal of care section of your ICU navigator to document the advanced care discussion. Quality section A-Line necessity reviewed: Ucda-et-tcdv blood pressure monitoring CVC necessity reviewed: Hemodynamic [...] by Macho Gaytan MD Author:Macho Gaytan MD [address] [address]Igejxvsqnscjvh signed by Macho Gaytan MD at 03/21/2017 1:43 PM PDTM Anurag coates MD - 03/21/2017 12:22 PM PDT Cardiovascular Intensive Care Unit Attending Progress Note CVICU D2 Assigned #[id number] ICU Admission Reason Most Recent Value ICU [...] Pager Mellisa Haji MD Admitting Provider Cardiology 68260 Code Status Code Status Full Code Quality section A-Line necessity reviewed: Acnn-xh-yvdd blood pressure monitoring CVC necessity reviewed: Plan [...] Date of Service: 03/21/2017 Author:Anurag Ashby MD [address] [address] [place] [address]Opudkyhsekwuql signed by Anurag Ashby MD at 03/21/2017 12:22 PM P Jose Ramon Coburn MD - 03/20/2017 12:36 PM PDTFormatting of this note might be differen t from the original. Cardiovascular Intensive Care Unit Team Progress Note CVICU D2 Assigned #[id number] ICU Admission Reason Most Recent Value ICU [...] & Plan Patient went into VFib during labor contract analyst procedure at [facility]. Was shocked 17 times Targeted temperature management [...] Patient was difficult intubation at outside labor contract analyst. -vanc zosyn stopped 03/17 -fever 38.3 last [...] Pager Mellisa Haji MD Admitting Provider Cardiology 19328 Quality section A-Line necessity reviewed: Nohi-qc-fdmo blood pressure monitoring CVC necessity reviewed: Hemodynamic [...] Ramon Alvarado MD Author:Jose Ramon Alvarado MD [address] [address]Sgyjutlqsynuns signed by Jose Ramon Alvarado MD at 03/20/2017 12:49 PM PDTMoulton, Anurag Soni MD - 03/20/2017 12:18 PM PDTFormatting of this note might be differen t from the original. Cardiovascular Intensive Care Unit Attending Progress Note CVICU D2 Assigned #[id number] ICU Admission Reason Most Recent Value ICU [...] Pager Mellisa Haji MD Admitting Provider Cardiology 67649 Code Status Code Status Full Code Quality section A-Line necessity reviewed: Zevo-oo-mwiv blood pressure monitoring CVC necessity reviewed: Medication [...] Date of Service: 03/20/2017 Author:Anurag Ashby MD [address] [address]Tuwcbaarljcyrl signed by Anurag Ashby MD at 03/20/2017 12:18 PM P Raul Conte MD - 03/19/2017 11:01 PM PDTFormatting of this note might be different fro m the original. Cardiovascular Intensive Care Unit Attending Progress Note CVICU D2 Assigned #[id number] ICU Admission Reason Most Recent Value ICU [...] Pager Mellisa Haji MD Admitting Provider Cardiology 18317 Code Status Code Status Full Code Quality section A-Line necessity reviewed: Esle-la-woow blood pressure monitoring CVC necessity reviewed: Hemodynamic [...] Date of Service: 03/19/2017 Author:Raul Wei MD [address] [address] [place] [address]Odpvpdmtaltkyd signed by Raul Wei MD at 03/19/2017 11:01 PM PD TMillerJose Ramon MD - 03/19/2017 4:49 PM PDT Cardiovascular Intensive Care Unit Team Progress Note CVICU D2 Assigned #[id number] ICU Admission Reason Most Recent Value ICU [...] & Plan Patient went into VFib during labor contract analyst procedure at [facility]. Was shocked 17 times Targeted temperature management [...] Patient was difficult intubation at outside labor contract analyst. -vanc zosyn stopped 03/17 -fever 38.3 03/17 [...] Pager Mellisa Haji MD Admitting Provider Cardiology 72290 Quality section A-Line necessity reviewed: Vmwn-nk-nkic blood pressure monitoring CVC necessity reviewed: Hemodynamic monitoring Reardon necessity reviewed: Hourly/Accurate measurement of urinary output for clinical manage ment of critically ill patients FAST HUG Feeding: TFs Analgesia: multimodal Sedation: propofol Thromboprophylaxis: Heparin infusion Head of Bed: Head of Bed >30 degrees Ulcer Prophylaxis: protonix Glycemic Control: insulin infusion Created by Joes Ramon Alvarado MD Author:Jose Ramon Alvarado MD [address] [address]Nltzmmzhymrnwe signed by Jose Ramon Alvarado MD at 03/19/2017 4:54 PM Lee Fernandez MD - 03/19/2017 2:22 PM PDTFormatting of this note might be different fr om the original. . Extracorporeal Life Support Service Daily Progress Note Pager #[phone] Type: Veno-Arterial (CP[place] [address] [place] [phone]) Date of insertion: 03/15/2017 Diagnosis:Cardiogenic shock Dressing [...] Unit Attending Progress Note CVICU D2 Assigned #[id number] ICU Admission Reason Most Recent Value ICU [...] Pager Mellisa Haji MD Admitting Provider Cardiology 28939 Code Status Code Status Full Code Quality section A-Line necessity reviewed: Pnhl-xl-ilzi blood pressure monitoring CVC necessity reviewed: Medication [...] Date of Service: 03/19/2017 Author:Anurag Ashby MD [address] P DTJose Ramon Alvarado MD - 03/18/2017 12:56 PM PDTFormatting of this note might be differen t from the original. Cardiovascular Intensive Care Unit Team Progress Note CVICU D2 Assigned #[id number] ICU Admission Reason Most Recent Value ICU [...] & Plan Patient went into VFib during labor contract analyst procedure at [facility]. Was shocked 17 times Targeted temperature management [...] Patient was difficult intubation at outside labor contract analyst. -vanc zosyn stopped today Abnormal CK Unknown [...] Pager Mellisa Haji MD Admitting Provider Cardiology 24120 Quality section A-Line necessity reviewed: Ybfx-yv-yrox blood pressure monitoring CVC necessity reviewed: Hemodynamic monitoring Reardon necessity reviewed: Hourly/Accurate measurement of urinary output for clinical manage ment of critically ill patients FAST HUG Feeding: trickle feeds Analgesia: multimodal Sedation: propofol Thromboprophylaxis: Heparin infusion Head of Bed: Head of Bed >30 degrees Ulcer Prophylaxis: nexium Glycemic Control: insulin infusion Created by Jose Ramon Alvarado MD Author:Jose Ramon Alvarado MD [address] [phone] signed by Jose Ramon Alvarado MD at 03/18/2017 1:27 PM PDTMoulton, Anurag Soni MD - 03/18/2017 11:56 AM PDTFormatting of this note might be differen t from the original. Cardiovascular Intensive Care Unit Attending Progress Note CVICU D2 Assigned #[id number] ICU Admission Reason Most Recent Value ICU [...] Pager Mellisa Haji MD Admitting Provider Cardiology 20702 Code Status Code Status Full Code Quality section A-Line necessity reviewed: Bdfr-cw-jdah blood pressure monitoring CVC necessity reviewed: Medication [...] Date of Service: 03/18/2017 Author:Anurag Ashby MD [address] [address]Mkwxsvojbffwdd signed by Anurag Ashby MD at 03/18/2017 11:59 AM Lee Prince MD - 03/18/2017 11:37 AM PDTFormatting of this note might be different from nissa suh original. . Extracorporeal Life Support Service Daily Progress Note Pager #[phone] Type: Veno-Arterial (CPT 55888 or 05976) Diagnosis:Cardiogenic shock Dressing changed: no Dressing Changed [...] Life Support Service Daily Progress Note Pager #[phone] Type: Veno-Arterial (CPT 06045 or 69444) Date of insertion: 03/15/2017 Diagnosis:Cardiogenic shock Dressing [...] Unit Attending Progress Note CVICU D2 Assigned #[id number] ICU Admission Reason Most Recent Value ICU [...] Pager Mellisa Haji MD Admitting Provider Cardiology 40161 Quality section A-Line necessity reviewed: Zbev-tg-mvix blood pressure monitoring CVC necessity reviewed: Rapid [...] Date of Service: 03/17/2017 Author:Raul Wei MD [address] [place] [address]Rjkouaicllbqeh signed by Raul Wei MD at 03/17/2017 9:20 PM PD Anurag Kaba MD - 03/17/2017 1:58 PM PDTFormatting of this note might be different fro m the original. Cardiovascular Intensive Care Unit Attending Progress Note CVICU D2 Assigned #[id number] ICU Admission Reason Most Recent Value ICU [...] Pager Mellisa Haji MD Admitting Provider Cardiology 75113 Quality section A-Line necessity reviewed: Dyiv-ya-glyi blood pressure monitoring CVC necessity reviewed: Medication [...] Date of Service: 03/17/2017 Author:Anurag Ashby MD [address] [address]Ulnkkkepnmjmyf signed by Anurag Ashby MD at 03/17/2017 2:00 PM P Mauri Calderon - 03/17/2017 1:01 PM PDTTransthoracic echocardiogram completed. Final r eport to follow. Teddy Ibrahim DO, MS - 03/17/2017 10:00 AM PDT Cardiovascular Intensive Care Unit Team Progress Note CVICU D2 Assigned #[id number] ICU Admission Reason Most Recent Value ICU [...] & Plan Patient went into VFib during labor contract analyst procedure at [facility]. Was shocked 17 times Targeted temperature management [...] Patient was difficult intubation at outside labor contract analyst. -vanc zosyn stopped today Abnormal CK Unknown [...] Pager Mellisa Haji MD Admitting Provider Cardiology 01482 This patient does not have an Advanced Care Note for this Admission. Please use the Goal of care section of your ICU navigator to document the advanced care discussion. Quality section A-Line necessity reviewed: Grqc-vl-qktm blood pressure monitoring CVC necessity reviewed: Hemodynamic monitoring Reardon necessity reviewed: Hourly/Accurate measurement of urinary output for clinical manage ment of critically ill patients FAST HUG Feeding: Tube Feeds Analgesia: apap, oxy, hm Sedation: propofol Thromboprophylaxis: Heparin infusion Head of Bed: Head of Bed Flat Ulcer Prophylaxis: Pantoprazole Glycemic Control: insulin infusion Created by Teddy Kee Do, MS [facility] DEPARTMENT: [facility] ICU CARDIAC Place of Service:- Inpatient CSN: [id number] Suggested Modifier: GC - Resident Involved Suggested CPT: TO DENTAL DETAIL REPRESENTATIVE Author:Teddy Kee Do, MS [address] [address]Snszkgkllzjwdw signed by Teddy Kee DO, MS at 03/17/2017 6:35 PM PDTRaul Wei MD - 03/16/2017 7:38 PM PDT Cardiovascular Intensive Care Unit Attending Progress Note CVICU D2 Assigned #[id number] ICU Admission Reason Most Recent Value ICU [...] Pager Mellisa Haji MD Admitting Provider Cardiology 59712 Quality section A-Line necessity reviewed: Bhmh-hv-vrky blood pressure monitoring CVC necessity reviewed: Rapid [...] Date of Service: 03/16/2017 Author:Raul Wei MD [facility] [address] [place] [address]Xsskffcppsrmkl signed by Raul Wei MD at 03/17/2017 11:03 AM PD Jose Ramon Rodriguez MD - 03/16/2017 5:15 PM PDT Cardiovascular Intensive Care Unit Team Progress Note CVICU D2 Assigned #[id number] ICU Admission Reason Most Recent Value ICU [...] & Plan Patient went into VFib during labor contract analyst procedure at [facility]. Was shocked 17 times Now on targeted [...] Patient was difficult intubation at outside labor contract analyst. -bridget retana for now Physical Exam vitals [...] team members Provider Role Specialty Pager Mellisa Hjai MD Admitting Provider Cardiology 17746 Quality section A-Line necessity reviewed: Tiuo-th-cwrc blood pressure monitoring CVC necessity reviewed: Hemodynamic [...] Ramon Alvarado MD Author:Jose Ramon Alvarado MD [address] [address]Qtgeqjlqtpgcya signed by Jose Ramon Alvarado MD at [...] Unit Attending Progress Note CVICU D2 Assigned #[id number] ICU Admission Reason Most Recent Value ICU [...] ICU Day #2 after being transferred from [employer] in [place] in acute cardiogenic archie ck following an anterior STEMI. Upon arrival to [facility], decision was made to go emergently [...] Pager Mellisa Haji MD Admitting Provider Cardiology 44445 Quality section A-Line necessity reviewed: Faev-lq-idha blood pressure monitoring CVC necessity reviewed: Hemodynamic [...] Date of Service: 03/16/2017 Author:Anurag Ashby MD [address] [address]Snupnvyqaxgbwx signed by Anurag Ashby MD at 03/16/2017 1:23 PM Lee Prince MD - 03/16/2017 9:41 AM PDTFormatting of this note might be different from t vikash original. . Extracorporeal Life Support Service Daily Progress Note Pager #[phone] Type: Veno-Arterial (CPT 88209 or 79[address]) Diagnosis:Cardiogenic shock Dressing changed: no Dressing Changed [...] Clinical Update Note Team: D2 Team Pager: [phone] Attending: Abdulaziz Pt Name: Ron Mckeon ID: [...] Date of Service: 03/16/2017 Mirna Berumen PA-C [facility] DEPARTMENT: [facility] ICU CARDIAC Place of Service:- Inpatient CSN: [id number] Suggested Modifier: None Suggested CPT: TO DENTAL DETAIL REPRESENTATIVE Mirna Berumen PA-C Everardo Valladares MD - 03/15/2017 9:04 PM PDT Cardiovascular Intensive Care Unit Attending Progress Note CVICU D2 Assigned #[id number] ICU Admission Reason Most Recent Value ICU Admission reason Cardiogenic Shock filed at 03/15/2017 1531 Hospital admission dx: left anterior descending artery occlusion, needs cabg Days in ICU Days in Hospital Medical Decision Making ICU Day #1 after being transferred from [employer] in [place] in acute cardiogenic archie ck following an anterior STEMI. Upon arrival to [facility], decision was made to go emergently [...] Pager Mellisa Haji MD Admitting Provider Cardiology 17682 Quality section A-Line necessity reviewed: Grsr-cm-xxdg blood pressure monitoring CVC necessity reviewed: Hemodynamic [...] and the recent imaging available. Seen with PA/[employer]IL[employer] PUNCHER Winston Cole. Please see their note for details. I reviewed the documented findings, all data and the recent imaging available. Date of Service: 03/15/2017 Author:Everardo Cintron MD [address] [address]Egidcrlemjcvsj signed by Everardo Cintron MD at 03/15/2017 9:[address] - 03/15/2017 2:11 PM PDTTransthoracic echocardiogram completed. Final r eport to follow. atrick Ruiz MD,MPH - 03/15/2017 2:00 PM PDT . Extracorporeal Life Support Service Consult Service Note Pager #[phone] Date: 03/15/17 Author: Patrick Ruiz MD,MPH Consulting Attending: Mellisa Haji MD Reason for Consult: [facility] ECMO Consideration HPI: 61 year old male who presents this afternoon to [facility] in acute cardiogenic shock second maciej to STEMI / thrombosed L main coronary artery. He was transferred from [place]. His symptoms started this morning around 3am and was seen in [place], [place]. He was diagnosed w ith an anterior STEMI and transferred to the labor contract analyst in [place], [place]. He was found to h ave [...] pressors (epinephrine and dopamine). On arrival to [facility], he was in profound cardiogenic shock and hypoxic. His MAP was in the 40s. He was tach ycardic into the 150s. IABP was increased to 1:2. Past Medical History: Past Medical History: Diagnosis Date Cardiogenic shock ([facility]) 03/15/2017 Coronary artery disease 03/15/2017 Hypercholesterolemia Hypertension [...] from cardiogenic shock. Patrick Ruiz MD, MPH light bulb tester Trauma, Critical Care & Acute Care Surgery [facility] onies, Patrick Sexton MD,MPH - 03/15/2017 1:48 PM PDT . . Extracorporeal Life Support Service Initiation Note Pager #[phone] Date of service: 03/15/2017 Author: Patrick Ruiz Md,Mph ECMO Type: Veno-Arterial (CPT 62929 [place] 36271) Oxygenation index FiO2: 100 MAP: 22 Diagnosis:Cardiogenic [...] old male who presents this afternoon to [facility] in acute cardiogenic shock secondary to [...] | + +--------+ + + + | RR-JQ-FRG-HB,POC RT | Routin | 03/19/2017 | ST [...] | + +--------+ + + + | CO ECMO REV | Routin | 03/19/2017 | [...] +---+--------+ + +--------+ + + + | OL-PV-IYX-HB,POC RT | Routin | 03/19/2017 | ST [...] | + +--------+ + + + | UL-CO-KPP-HB,POC RT | Routin | 03/19/2017 | ST elevation | Results for this | | | e | 10:06 AM | myocardial | procedure are in the | | | | PDT | infarction involving | results section. | | | | | left main coronary | | | | | | artery (HCC) | | + +--------+ + + + | DF-LB-VOC-HB,POC RT | Routin | 03/19/2017 | ST [...] | + +--------+ + + + | YE-LD-NCA-HB,POC RT | Routin | 03/17/2017 | ST [...] | + +--------+ + + + | LP-KY-XVS-HB,POC RT | Routin | 03/16/2017 | ST [...] | + +--------+ + + + | FA-CU-VIA-HB,POC RT | Routin | 03/16/2017 | ST [...] | + +--------+ + + + | GQ-RN-CNO-HB,POC RT | Routin | 03/15/2017 | ST [...] | + +--------+ + + + | TN-UQ-KTR-HB,POC RT | Routin | 03/15/2017 | ST [...] | + +--------+ + + + | FT-FD-PWL-HB,POC RT | Routin | 03/15/2017 | ST [...] Height: 175 cm Weight: 89 kgBSA: 2.05 [id number] PHYSICIAN:Katarina Ngo, | | .FELLOW:Gerson Mejias M.D. [...] right coronary angiography.COMPLICATIONS:None.TECHNIQUE:Right femoral artery | | 6-Kazakh 10 cm Dallas sheath, 6-Kazakh XB 3.5 guide catheter, 5-Kazakh JR4 | | catheter.DESCRIPTION OF PROCEDURE:Informed consent [...] modified Seldinger technique and a | | 5-Kazakh micropuncture system, a 6-Kazakh 10 cm Dallas sheath was placed in the right | | femoral artery. A 6-Kazakh XB 3.5 guide catheter was inserted into the ascending aorta | | over a guidewire. The guidewire was removed. The catheter was aspirated and flushed. | | The left coronary system was selectively engaged and imaged in multiple projections. A | | 5-Kazakh Kymberly right 4 catheter was advanced to [...] DOSE AREA | | PRODUCT: 3749 cGy ke2LHPUGMZQOQPK:Aortic pressure 87/15, mean aortic pressure 63, heart [...] 03/30/2017 04:50:01DT: | | 03/30/2017 08:34:34Job #: [id number] | |extending from it into the LAD. [...] |YDT/MODL | | | | | | /[id number] | + + CAPILLARY BLOOD GLUCOSE (NO [...] + + + | [facility] | [address] | [place], [place] | | | JULIANN SILVA OF [facility] | [address] | [address] | | | TESTS | | | [...] [facility] | [address] | [place] [address] | | | SERVICES, CORE | PARK [...] [facility] | [address] | [place] [address] | | | SERVICES, CORE [...] [facility] | [address] | [place] [address] | | | SERVICES, CORE | PARK [...] | | | LABORATORY | | | JORDANIAN | | | SERVICES, | | | [...] | + + + + + | [facility] | [address] | [place] [address] | | | SERVICES, CORE | TABITHA [...] | + + + + + | [facility] | [address] | [place] [address] | | | SERVICES, CORE | PARK [...] [facility] | [address] | [place] [address] | | | ИРИНА ANTOINE | TABITHA [...] + + + | [facility] | [address] | [place], [place] | | | RICARDO POINT OF CARE | [address] | [address] | | | TESTS | | | [...] [facility] | [address] | [place] | | | [facility]O POINT OF CARE | [address] | [address] | | | TESTS | | | [...] [facility]NA [facility] | [address] | [place], [place] | | | R[facility]O POINT OF CARE | [address] | [address] | | | TESTS | | | [...] | + + + + + | [facility] | [address] [facility] | [place] [address] | | | SERVICES, CORE | PARK [...] | | | LABORATORY | | | JORDANIAN | | | SERVICES, | | | [...] [facility] | [address] | [place] [address] | | | SERVICES, CORE | TABITHA [...] | + + + + + | [facility] | [address] | [place] [address] | | | ARASH, ИРИНА | [address] | | | + + + + + MAGNESIUM, PLASMA (04/01/2017 3:43 AM PDT) + +-------+ + + + | Component | Value | Ref Range | Performed | Pathologist | | | | | At | Signature | + +-------+ + + + | MAGNESIUM,P | 2.2 | 1.8 - 2.5 mg/dL | [facility] | | | FEI | | | [...] | + + + + + | [facility] | [address] | [place] [address] | | | SERVICES, CORE | PARK [...] (H) | 70 - 99 mg/dL | [facility] - | | | GLUCOSE, | [...] [facility] | [address] | [place], [place] | | | JULIANN SILVA OF CARE | [address] | [address] | | | TESTS | | | [...] [facility] | [address] | [place], [place] | | | JULIANN SILVA OF CARE | [facility] | [address] | | | TESTS | | | [...] (H) | 70 - 99 mg/dL | [facility] - | | | GLUCOSE, | [...] [facility] | [address] | [place], [place] | | | JULIANN SILVA OF CARE | [address] | [address] | | | TESTS | | | [...] [facility] | [address] | [place] | | | GURINDER SILVA | [facility] | [address] | | | TESTS | | | [...] [facility] | [address] | [place] [address] | | | ИРИНА ANTOINE | TABITHA [...] | | | LABORATORY | | | JORDANIAN | | | SERVICES, | | | [...] | + + + + + | [facility] | [address] | [place] [address] | | | SERVICES, CORE | PARK [...] | + + + + + | [facility] | [address] | [place] [address] | | | SERVICES, CORE | [address] | | | + + + + + MAGNESIUM, PLASMA (03/31/2017 3:45 AM PDT) + +-------+ + + + | Component | Value | Ref Range | Performed | Pathologist | | | | | At | Signature | + +-------+ + + + | MAGNESIUM,P | 2.4 | 1.8 - 2.5 mg/dL | [facility] | | | DENISEMA | | | [...] | + + + + + | [facility] | [address] | [place] [address] | | | ARASH, CORE | PARK [...] [facility] | [address] | [place] [address] | | | SERVICES, CORE | TABITHA [...] - [facility] | [address] | [place], [place] | | | [place] POINT OF CARE | [address] | [address] | | | TESTS | | | [...] | | | LABORATORY | | | JORDANIAN | | | SERVICES, | | | [...] | + + + + + | [facility] | [address] | [place] [address] | | | ИРИНА ANTOINE | TABITHA [...] DEPT OF | [address] | [place], [place] | | | CARDIOLOGY | [address] | [address] | | + + + + + [...] [facility] | [address] | [place], [place] | | | R[facility]ARDO POINT OF CARE | [address] | [address] | | | TESTS | | | [...] | | | LABORATORY | | | JORDANIAN | | | SERVICES, | | | [...] + + | [facility] | [address] [facility] | [place] [address] | | | SERVICES, CORE | PARK [...] LABORATORY | [address] | [place] [address] | | | SERVICES, CORE | TABITHA [...] rmed At | + +------ + | [facility] | [facility] | | [facility] Adult Echocardiography | CARDI OLOGY | | Laboratory [address] [place] [address], | | | [place] [address] Pt Name: | | | RON MCKEON Study Date/Time 03/30/2017 / 10:44:00 | | | AMMRN: [id number] Most recent | | | prior: 03/19/17cc #: [id number] No. previous | | | echos: 3DOB: 1955 61 years Heart | | | Rate: 70 bpmHeight: 68.0 in | | | Blood Pressure: 100/55 mm/HgWeight: 197.0 | | | lb Gender: | | | MBSA: 2.03 m2 Order | | | ID: [id number] Signal Worker: Shahab Sutton | | | RDCSSonographer 2: Karly Gayle Referring Provider: Ariana | | | [facility] Location: 11KModalities Performed: 2D, Color flow, [...] patient's significant recent [place], we activated the labor contract analyst. Patient | | | history has been [...] Report electronically signed by: | | | [id number] Jordon Neville MD (03/30/2017, 2:04:56 PM) Final | | | | | |Wall Scoring: | | | | | | | | |Report electronically signed by: [id number] Jordon Neville MD (03/30/2017, 2:04:56 PM) | | | | | | | | | | | | Final | | + +------ + + + | Procedure Note | + + | Interface, Cardiology Results - 03/30/2017 2:04 PM [facility] | | [facility] Echocardiography Laboratory [address] [place] [address] | | [place], [place] [address] Pt Name: RON Chaudhary | | MIKE Study Date/Time 03/30/2017 / 10:44:00 AMMRN: [id number] Most | | recent prior: 03/19/17 #: [id number] No. previous echos: 3DOB: | | 1955 61 years Heart Rate: 70 bpmHeight: 68.0 in Blood | | Pressure: 100/55 mm/HgWeight: 197.0 lb Gender: MBSA: | | 2.03 m2 Order ID: [id number] Signal Worker: Shahab Sutton | | RDCSSonographer 2: Karly [...] patient's significant recent [place], we activated the labor contract analyst. Patient history has been | | obtained [...] Scoring: Report | | electronically signed by: [id number] Jordon Neville MD (03/30/2017, 2:04:56 PM) Final [...] | | | |Report electronically signed by: [id number] Jordon Neville MD (03/30/2017, 2:04:56 PM) | | | | | | | | Final | + + + + + + + | Performing | Address | City/State/Zipcode | Phone Number | | Organization | | | | + + + + + | [facility] | [address] | [place], [place] | | | CARDIOLOGY | [address] | [address] | | + + + + + [...] [facility] | [address] | [place], [place] | | | R[facility]ARDO POINT OF CARE | [address] | [address] | | | TESTS | | | [...] | + + + + + | [facility] | [address] [facility] | [place] [address] | | | SERVICES, CORE | TABITHA [...] MARIA | [address] | [place], [place] | | | JULIANN SILVA OF [facility] | [address] | [address] | | | TESTS | | | [...] + | [facility] | [address] [facility] [address] | [place], [place] | | | CARDIOLOGY | [address] | [address] | | + + + + + [...] | | | LABORATORY | | | JORDANIAN | | | SERVICES, | | | [...] [facility] | [address] | [place] [address] | | | SERVICES, CORE | PARK [...] [facility] | [address] | [place] [address] | | | SERVICES, CORE | TABITHA [...] | + + + + + | [facility] | [address] | [place] [address] | | | SERVICES, CORE | [address] | | | + + + + + 12 LEAD ECG (03/30/2017 2:47 AM PDT) + + + + + + | Component | Value | Ref Range | Performed | Pathologist | | | | | At | Signature | + + + + + + | VENTRICULAR | 93 | bpm | [facility] | | | RATE | | [...] DEPT OF | [address] | [place], [place] | | | CARDIOLOGY | [address] | [address] | | + + + + + [...] DEPT OF | [address] | [place], [place] | | | CARDIOLOGY | [address] | [address] | | + + + + + [...] | + + + + + | [facility] | [address] | [place] [address] | | | SERVICES, CORE | PARK [...] | + + + + + | [facility] | [address] [facility] | [place] [address] | | | SERVICES, CORE | TABITHA [...] | + + + + + | [facility] | [address] | [place] [address] | | | ARASH, ИРИНА | PARK [...] [facility] | [address] | [place] [address] | | | SERVICES, CORE | PARK [...] MARIA | [address] | [place] | | | JULIANN SILVA OF [facility] | [address] | [address] | | | TESTS | | | [...] | + + + + + | [facility] | [address] | [place] [address] | | | SERVICES, CORE | TABITHA [...] [facility] OF | [address] | [place], [place] | | | CARDIOLOGY | [address] | [address] | | + + + + + [...] - [facility] | [address] | [place] | | | R[facility]ARDO POINT OF CARE | [address] | [address] | | | TESTS | | | [...] [facility] | [address] | [place] | | | RICARDO POINT OF [facility] | [address] | [address] | | | TESTS | | | [...] | + + + + + | [facility] | [address] | [place] [address] | | | SERVICES, CORE | TABITHA [...] [facility] | [address] | [place] | | | R[place]ARDO POINT OF CARE | [address] | [address] | | | TESTS | | | [...] [facility] | [address] | [place] [address] | | | SERVICES, CORE | PARK [...] | | | LABORATORY | | | JORDANIAN | | | SERVICES, | | | [...] | + + + + + | [facility] | [address] | [place] [address] | | | SERVICES, CORE | TABITHA [...] ranges for full anticoagulation: INR for | [facility] | | Venous Thromboembolism (2.0 - 3.0) INR INR | LABORATORY | | for most patients with mech. valves (2.5 - 3.5) INR | ARASH, CORE | + + + + + + + + | Performing | Address | City/State/Zipcode | Phone Number | | Organization | | | | + + + + + | [facility] | [address] | [place] [address] | | | ARASH, ИРИНА | TABITHA [...] | + + + + + | [facility] | [address] | [place] [address] | | | SERVICES, CORE | TABITHA [...] | + + + + + | [facility] | [address] | [place] [address] | | | ARASH, ИРИНА | TABITHA [...] | + + + + + | [facility] | [address] | [place] [address] | | | SERVICES, CORE | TABITHA [...] [facility] | [address] | [place], [place] | | | JULIANN SILVA OF [facility] | [address] | [address] | | | TESTS | | | [...] ANA [facility] | [address] | [place] | | | JULIANN SILVA OF [facility] | [facility] | [address] | | | TESTS | | | [...] | | | LABORATORY | | | JORDANIAN | | | SERVICES, | | | [...] | + + + + + | [facility] | [address] | [place] [address] | | | ARASH, ИРИНА | PARK [...] [facility] | [address] | [place] [address] | | | SERVICES, CORE | PARK [...] | | | LABORATORY | | | JORDANIAN | | | SERVICES, | | | [...] | + + + + + | [facility] | [address] [facility] | [place] [address] | | | SERVICES, CORE | TABITHA [...] [facility] | [address] | [place], [place] | | | JULIANN SILVA OF CARE | [address] | [address] | | | TESTS | | | [...] [facility] | [address] | [place] | | | JULIANN SILVA OF CARE | [address] | [address] | | | TESTS | | | [...] + + | [facility] | [address] [facility] [address] | [place] [address] | | | SERVICES, ИРИНА | TABITHA [...] | | | LABORATORY | | | JORDANIAN | | | SERVICES, | | | [...] + + | [facility] | [address] [facility] | [place] [address] | | | SERVICES, CORE | PARK [...] | + + + + + | [facility] | [address] | [place] [address] | | | SERVICES, CORE | PARK [...] | + + + + + | [facility] | [address] | [place] [address] | | | SERVICES, CORE | [address] | | | + + + + + MAGNESIUM, PLASMA (03/28/2017 4:13 AM PDT) + +---------+ + + + | Component | Value | Ref Range | Performed | Pathologist | | | | | At | Signature | + +---------+ + + + | MAGNESIUM,P | 2.7 (H) | 1.8 - 2.5 mg/dL | [facility] | | | DENISEMA | | [...] | + + + + + | [facility] | [address] | [place] [address] | | | SERVICES, CORE | PARK [...] RODGERS | [address] | [place] | | | JULIANN SILVA OF [facility] | [address] | [address] | | | TESTS | | | [...] RODGERS | [address] | [place] | | | [facility] | [address] | [address] | | | TESTS | | | [...] MARIA | [address] | [place], [place] | | | JULIANN SILVA OF [facility] | [address] | [address] | | | TESTS | | | [...] ANA MARIA | [address] | [place], [place] | | | JULIANN SILVA OF [facility] | [address] | [address] | | | TESTS | | | [...] [facility] | [address] | [place] [address] | | | SERVICES, CORE | PARK [...] | + + + + + | [facility] | [address] | [place] [address] | | | SERVICES, CORE | TABITHA [...] | | | LABORATORY | | | JORDANIAN | | | SERVICES, | | | [...] [facility] | [address] | [place] [address] | | | SERVICES, CORE | PARK [...] | + + + + + | [facility] | [address] | [place] [address] | | | SERVICES, CORE | PARK [...] | + + + + + | [facility] | [address] | [place] [address] | | | SERVICES, CORE | TABITHA [...] - MARQUAM | [address] | [place] | | | [facility] | [address] | [address] | | | TESTS | | | [...] + + + | [facility] | [address] | [place] | | | [facility] | [address] | [address] | | | TESTS | | | [...] | | | LABORATORY | | | JORDANIAN | | | SERVICES, | | | [...] | + + + + + | [facility] | [address] | [place] [address] | | | SERVICES, CORE | TABITHA [...] MARRANDIAM | [address] | [place] | | | JULIANN SILVA OF [facility] | [address] | [address] | | | TESTS | | | | + + + + + RAINBOW HOLD TUBE - GREEN TOP (03/26/2017 3:50 AM PDT) + + | Specimen | + + | Blood | + + + + + + + | Performing | Address | City/State/Zipcode | Phone Number | | Organization | | | | + + + + + | [facility] | [address] | [place] [address] | | | SERVICES, CORE | TABITHA [...] | + + + + + | [facility] | [address] [facility] | [place] [address] | | | SERVICES, CORE | PARK [...] | + + + + + | [facility] | [address] | [place] [address] | | | ИРИНА ANTOINE | TABITHA [...] | | | LABORATORY | | | JORDANIAN | | | SERVICES, | | | [...] EULOGIO CALABRESE | [address] | [place] [address] | | | SERVICES, CORE | TABITHA [...] | + + + + + | [facility] | [address] | [place] [address] | | | SERVICES, CORE | TABITHA [...] [facility] | [address] | [place] [address] | | | SERVICES, CORE | PARK [...] [facility] | [address] | [place] [address] | | | SERVICES, SPECIAL | PARK [...] + + + + + | [facility] | [address] | [place] [address] | | | SERVICES, CORE | TABITHA [...] MARQUAM | [address] | [place] | | | [facility] | [address] | [address] | | | TESTS | | | [...] EULOGIO RODGERS | [address] | [place], [place] | | | [facility] | [address] | [address] | | | TESTS | | | [...] | + + + + + | [facility] | [address] | [place] [address] | | | SERVICES, CORE | TABITHA [...] | [facility] | | | GRAVITY | [place] performed by | | LABORATORY | | [...] | + + + + + | [facility] | [address] | [place] [address] | | | SERVICES, CORE | [address] | | | + [...] + | [facility] | [address] | [place] [address] | | | [place] | | | [...] MARQUAM | [address] | [place] | | | [facility] | [address] | [address] | | | TESTS | | | [...] RODGERS | [address] | [place] | | | [facility] | [address] | [address] | | | TESTS | | | [...] | + + + + + | [facility] | [address] | [place] [address] | | | ИРИНА ANTOINE | TABITHA [...] | + + + + + | [facility] | [address] | [place] [address] | | | ИРИНА ANTOINE | TABITHA [...] ranges for full anticoagulation: INR for | [facility] | | Venous Thromboembolism (2.0 - 3.0) INR INR | LABORATORY | | for most patients with mech. valves (2.5 - 3.5) INR | ИРИНА ANTOINE | + + + + + + + + | Performing | Address | City/State/Zipcode | Phone Number | | Organization | | | | + + + + + | [facility] | [address] | [place] [address] | | | ИРИНА ANTOINE | TABITHA [...] [facility] | [address] | [place] [address] | | | SERVICES, CORE [...] | | | LABORATORY | | | JORDANIAN | | | SERVICES, | | | [...] | + + + + + | [facility] | [address] | [place] [address] | | | SERVICES, CORE | [...] | + + + + + | [facility] | [address] | [place] [address] | | | SERVICES, CORE | PARK [...] MARQUAM | [address] | [place] | | | JULIANN SILVA OF CARE | [address] | [address] | | | TESTS | | | [...] - MARQUAM | [address] | [place], [place] | | | JULIANN SILVA OF CARE | [address] | [address] | | | TESTS | | | [...] RODGERS | [address] | [place] | | | [facility] | [address] | [address] | | | TESTS | | | [...] MARQUAM | [address] | [place] | | | JULIANN SILVA OF [facility]ARE | [address] | [address] | | | TESTS | | | [...] [facility] | [address] | [place] [address] | | | SERVICES, CORE | PARK [...] | + + + + + | [facility] | [address] | [place] [address] | | | SERVICES, CORE | TABITHA [...] BLUAM | [address] | [place] | | | JULIANN SILVA OF CARE | [address] | [address] | | | TESTS | | | [...] | | | attempt. Midline lot number [id number]; there was + blood | | | [...] RODGERS | [address] | [place] | | | JULIANN SILVA OF [facility] | [address] | [address] | | | TESTS | | | [...] MARQUAM | [address] | [place] | | | [facility] | [address] | [address] | | | TESTS | | | [...] | + + + + + | [facility] | [address] | [place] [address] | | | SERVICES, CORE | TABITHA [...] (H) | 70 - 99 mg/dL | [facility] - | | | GLUCOSE, | [...] RODGERS | [address] | [place] | | | JULIANN SILVA OF [facility] | [facility] | [address] | | | TESTS | | | [...] MARIA | [address] | [place] | | | JULIANN SILVA OF [facility] | [address] | [address] | | | TESTS | | | [...] MARIA | [address] | [place], [place] | | | [facility] PO[facility] | [facility] | [address] | | | TESTS | | | [...] (H) | 70 - 99 mg/dL | [facility] - | | | GLUCOSE, | [...] RODGERS | [address] | [place] | | | JULIANN SILVA OF [facility] | [facility] | [address] | | | TESTS | | | [...] | + + + + + | [facility] | [address] | [place] [address] | | | SERVICES, CORE | TABITHA [...] | + + + + + | [facility] | [address] | [place] [address] | | | SERVICES, CORE | TABITHA [...] [facility] | [address] | [place] [address] | | | SERVICES, CORE | TABITHA [...] | | | LABORATORY | | | JORDANIAN | | | SERVICES, | | | [...] | + + + + + | [facility] | [address] | [place] [address] | | | SERVICES, CORE | TABITHA [...] | + + + + + | [facility] | [address] | [place] [address] | | | ИРИНА ANTOINE | TABITHA [...] ANA MARIA | [address] | [place], [place] | | | JULIANN SILVA OF [facility]ARE | [address] | [address] | | | TESTS | | | [...] (H) | 70 - 99 mg/dL | [facility] - | | | GLUCOSE, | [...] RODGERS | [address] | [place] | | | JUL[facility]ANN SIL[facility] | [address] | [address] | | | TESTS | | | [...] MARQUAM | [address] | [place] | | | J[facility]ANN S[facility]VA [facility] | [address] | [address] | | | TESTS | | | [...] ANA MARIA | [address] | [place], [place] | | | RICARDO HENRICO OF [facility] | [address] | [address] | | | TESTS | | | [...] | + + + + + | [facility] | [address] | [place] [address] | | | SERVICES, CORE | TABITHA [...] MARQUAM | [address] | [place] | | | [facility] | [address] | [address] | | | TESTS | | | [...] + + + | [facility] | [address] | [place], [place] | | | [facility] | [address] | [address] | | | TESTS | | | [...] | + + + + + | [facility] | [address] | [place] [address] | | | SERVICES, CORE | TABITHA [...] RODGERS | [address] | [place] | | | JULIANN SILVA OF [facility] | [facility] | [address] | | | TESTS | | | [...] MARQUAM | [address] | [place], [place] | | | JULIANN SILVA OF CARE | [address] | [address] | | | TESTS | | | [...] (H) | 70 - 99 mg/dL | [facility] - | | | GLUCOSE, | [...] MARQUAM | [address] | [place] | | | RICARDO POINT OF [facility] | [address] | [address] | | | TESTS | | | [...] RODGERS | [address] | [place] | | | JULIANN SILVA OF [facility] | [facility] | [address] | | | TESTS | | | [...] MARIA | [address] | [place] | | | RICARDO POINT OF [facility] | [address] | [address] | | | TESTS | | | [...] [facility] | [address] | [place] [address] | | | SERVICES, CORE | PARK [...] | + + + + + | [facility] | [address] | [place] [address] | | | SERVICES, CORE | PARK [...] | + + + + + | [facility] | [address] | [place] [address] | | | SERVICES, CORE | TABITHA [...] | | | LABORATORY | | | JORDANIAN | | | SERVICES, | | | [...] [facility] | [address] | [place] [address] | | | SERVICES, CORE | PARK [...] | + + + + + | [facility] | [address] | [place] [address] | | | SERVICES, CORE | TABITHA [...] (H) | 70 - 99 mg/dL | [facility] - | | | GLUCOSE, | | [...] MARIA | [address] | [place], [place] | | | JULIANN SILVA OF [facility] | [facility] | [address] | | | TESTS | | | [...] MARIA | [address] | [place], [place] | | | JULIANN SILVA OF [facility] | [facility] | [address] | | | TESTS | | | [...] (H) | 70 - 99 mg/dL | [facility] - | | | GLUCOSE, | [...] MARIA | [address] | [place] | | | [facility] PO[facility]ARE | [address] | [address] | | | TESTS | | | [...] + | Performing | Address | City/State[facility] | Phone Number | | Organization | | | | + + + + + | [facility] - ANA MARIA | [address] | [place], [place] | | | JULIANN SILVA OF [facility] | [facility] | [address] | | | TESTS | | | [...] BLUAM | [address] | [place], [place] | | | JULIANN SILVA OF [place] | [facility] | [address] | | | TESTS | | | [...] (H) | 70 - 99 mg/dL | [facility] - | | | GLUCOSE, | [...] MARIA | [address] | [place] | | | [facility] PO[facility]ARE | [address] | [address] | | | TESTS | | | [...] [facility] | [address] | [place] [address] | | | SERVICES, CORE | PARK [...] - MARQUAM | [address] | [place] | | | JULIANN SILVA OF CARE | [facility] | [address] | | | TESTS | | | [...] RODGERS | [address] | [place] | | | R[facility]O POINT OF CARE | [address] | [address] | | | TESTS | | | [...] MARQUAM | [address] | [place] | | | JULIANN SILVA [facility] | [address] | [address] | | | TESTS | | | [...] - MARQUAM | [address] | [place] | | | J[facility]ANN SIL[facility] | [address] | [address] | | | TESTS | | | [...] RODGERS | [address] | [place] | | | [facility] PO[facility]ARE | [address] | [address] | | | TESTS | | | [...] [facility] | [address] | [place] [address] | | | ARASH, ИРИНА | TABITHA [...] MARQUAM | [address] | [place] | | | JULIANN SILVA [facility] | [address] | [address] | | | TESTS | | | [...] RODGERS | [address] | [place] | | | [facility]O PO[facility]ARE | [address] | [address] | | | TESTS | | | [...] MARQUAM | [address] | [place] | | | JULIANN SILVA [facility] | [address] | [address] | | | TESTS | | | [...] MARQUAM | [address] | [place] | | | JUL[facility]ANN SILVA [facility] | [address] | [address] | | | TESTS | | | [...] RODGERS | [address] | [place] | | | [facility] PO[facility]ARE | [address] | [address] | | | TESTS | | | [...] MARQUAM | [address] | [place] | | | HILL, POINT OF CARE | [address] | [address] | | | TESTS | | | [...] [facility] | [address] | [place] [address] | | | SERVICES, | [address] [...] | + + + + + | [facility] | [address] | [place] [address] | | | SERVICES, | [address] [...] + + + + | PRODUCT | [id number] | | [facility] | | | UNIT [...] + + + + | EXPIRATION | [id number] | | [facility] | | | DATE [...] + + + + | BLOOD | [id number] | | [facility] | | | PRODUCT [...] [facility] | [address] | [place] [address] | | | SERVICES, | [address] [...] + + + | [facility] | [address] | [place] [address] | | | SERVICESИРИНА | [address] [...] | + + + + + | [facility] | [address] | [place] [address] | | | SERVICES, CORE | PARK [...] | + + + + + | [facility] | [address] | [place] [address] | | | ИРИНА ANTOINE | TABITHA [...] | + + + + + | [facility] | [address] | [place] [address] | | | SERVICES, CORE | TABITHA [...] [facility] | [address] | [place] [address] | | | SERVICES, CORE | PARK [...] | | | LABORATORY | | | JORDANIAN | | | SERVICES, | | | [...] | + + + + + | [facility] | [address] | [place] [address] | | | SERVICES, CORE | PARK [...] MARIA | [address] | [place], [place] | | | JULIANN SILVA OF CARE | [facility] | [address] | | | TESTS | | | [...] (H) | 70 - 99 mg/dL | [facility] - | | | GLUCOSE, | [...] RODGERS | [address] | [place] | | | JULIANN SILVA OF CARE | [facility] | [address] | | | TESTS | | | [...] MARIA | [address] | [place], [place] | | | JUL[facility]ANN SILVA [facility] | [address] | [address] | | | TESTS | | | [...] ANA MARIA | [address] | [place], [place] | | | JULIANN SILVA OF CARE | [facility] | [address] | | | TESTS | | | [...] (H) | 70 - 99 mg/dL | [facility] - | | | GLUCOSE, | [...] RODGERS | [address] | [place] | | | JULIANN SILVA OF CARE | [facility] | [address] | | | TESTS | | | [...] MARIA | [address] | [place], [place] | | | JULIANN SILVA [facility] | [address] | [address] | | | TESTS | | | [...] MARIA | [address] | [place], [place] | | | JULIANN SILVA OF CARE | [facility] | [address] | | | TESTS | | | [...] (H) | 70 - 99 mg/dL | [facility] - | | | GLUCOSE, | [...] RODGERS | [address] | [place] | | | JULIANN SILVA [facility] | [address] | [address] | | | TESTS | | | [...] MARIA | [address] | [place], [place] | | | [facility]ANN [facility] | [address] | [address] | | | TESTS | | | [...] | | | LABORATORY | | | JORDANIAN | | | SERVICES, | | | [...] | + + + + + | [facility] | [address] | [place] [address] | | | SERVICES, CORE | PARK [...] MARQUAM | [address] | [place] | | | J[facility]ANN S[facility] | [address] | [address] | | | TESTS | | | [...] MARQUAM | [address] | [place], [place] | | | [facility] | [address] | [address] | | | TESTS | | | [...] (H) | 70 - 99 mg/dL | [facility] - | | | GLUCOSE, | [...] RODGERS | [address] | [place] | | | J[facility]ANN [facility] | [address] | [address] | | | TESTS | | | [...] on the 1 attempt. Midline lot number [id number]; there was + | | | blood [...] MARQUAM | [address] | [place], [place] | | | JULIANN SILVA OF [facility]ARE | [facility] | [address] | | | TESTS | | | [...] RODGERS | [address] | [place] | | | JULIANN S[facility] | [address] | [address] | | | TESTS | | | [...] | + + + + + | [facility] | [address] | [place] [address] | | | SERVICES, CORE | PARK [...] + + + | [facility] | [address] | [place] | | | RICARDO POINT OF CARE | [address] | [address] | | | TESTS | | | [...] | + + + + + | [facility] | [address] | [place] [address] | | | SERVICES, CORE | PARK [...] MARIA | [address] | [place], [place] | | | J[facility]ANN S[facility] | [address] | [address] | | | TESTS | | | [...] MARIA | [address] | [place], [place] | | | JULIANN SILVA OF [facility] | [facility] | [address] | | | TESTS | | | [...] (H) | 70 - 99 mg/dL | [facility] - | | | GLUCOSE, | [...] RODGERS | [address] | [place] | | | RICARDO POINT OF CARE | [address] | [address] | | | TESTS | | | [...] MARIA | [address] | [place], [place] | | | [facility] | [address] | [address] | | | TESTS | | | [...] [facility] | [address] | [place] [address] | | | ИРИНА ANTOINE | TABITHA [...] | + + + + + | [facility] | [address] | [place] [address] | | | SERVICES, CORE | [address] | | | + + + + + MAGNESIUM, PLASMA (03/21/2017 5:34 AM PDT) + +---------+ + + + | Component | Value | Ref Range | Performed | Pathologist | | | | | At | Signature | + +---------+ + + + | MAGNESIUM,P | 2.6 (H) | 1.8 - 2.5 mg/dL | [facility] | | | LASMA | | | [...] | + + + + + | [facility] | [address] [facility] [facility] | [place] [address] | | | SERVICES, CORE | TABITHA [...] | | | LABORATORY | | | JORDANIAN | | | SERVICES, | | | [...] | + + + + + | [facility] | [address] | [place] [address] | | | ИРИНА ANTOINE | TABITHA [...] (H) | 70 - 99 mg/dL | [facility] - | | | GLUCOSE, | [...] RODEGRS | [address] | [place] | | | R[facility]ARDO POINT OF CARE | [address] | [address] | | | TESTS | | | [...] MARIA | [address] | [place], [place] | | | J[facility]ANN S[facility]VA [facility] | [address] | [address] | | | TESTS | | | [...] MARQUAM | [address] | [place] | | | JULIANN SILVA [facility]ARE | [address] | [address] | | | TESTS | | | [...] RODGERS | [address] | [place] | | | JULIANN SILVA [facility]ARE | [address] | [address] | | | TESTS | | | [...] BLUAM | [address] | [place] | | | JULIANN SILVA [facility]ARE | [address] | [address] | | | TESTS | | | [...] | + + + + + | [facility] | [address] | [place] [address] | | | SERVICES, CORE | TABITHA [...] (H) | 70 - 99 mg/dL | [facility] - | | | GLUCOSE, | [...] [place] | [address] | [place] | | | R[facility]O [facility]ARE | [address] | [address] | | | TESTS | | | [...] [place] | [address] | [place] | | | [facility] | [address] | [address] | | | TESTS | | | [...] [place] | [address] | [place] | | | JULIANN SILVA OF [place] | [facility] | [address] | | | TESTS | | | [...] [place] | [address] | [place] | | | JULIANN SILVA OF CARE | [address] | [address] | | | TESTS | | | [...] [place] | [address] | [place] | | | [place], POINT OF CARE | [address] | [address] | | | TESTS | | | [...] [place] | [address] | [place] | | | JULIANN SILVA OF [place] | [facility] | [address] | | | TESTS | | | [...] [place] | [address] | [place] | | | JULIANN SILVA OF CARE | [address] | [address] | | | TESTS | | | [...] | + + + + + | [facility] | [address] | [place] [address] | | | SERVICES, CORE | TABITHA [...] (H) | 70 - 99 mg/dL | [facility] - | | | GLUCOSE, | [...] [place] | [address] | [place] | | | JULIANN SILVA OF [place] | [facility] | [address] | | | TESTS | | | [...] MARIA | [address] | [place], [place] | | | JULIANN SILVA OF CARE | [address] | [address] | | | TESTS | | | [...] | + + + + + | [facility] | [address] | [place] [address] | | | ИРИНА ANTOINE | TABITHA [...] [place] | [address] | [place] | | | JULIANN SILVA OF [facility] | [address] | [address] | | | TESTS | | | [...] the tip in the proximal gastric body. Kopperl Олег | | | catheter in place. [...] Note | + + | Service Account, PageFreezer Res In Interface - 03/20/2017 2:38 PM PDT EXAM: Supine | | frontal view of the abdomen. HISTORY: Study to evaluate feeding tube | | positionCOMPARISON: Chest Xray dated 03/19/2017.FINDINGS AND IMPRESSION:Feeding tube is | | seen in the stomach with the tip in the proximal gastric body.Kopperl Олег catheter in | | place.Limited evaluation of the lungs as technique was tailored for feeding tube.I have | | personally reviewed the images and, if necessary, edited the report. I agree with the | | report as now presented. | | | |Feeding tube is seen in the stomach with the tip in the proximal gastric body. | |Kopperl Олег catheter in place. | |Limited evaluation [...] | | + +---------+ + + | [facility] | | | | | [...] [place] | [address] | [place], [place] | | | JULIANN SILVA OF CARE | [address] | [address] | | | TESTS | | | [...] [place] | [address] | [place] | | | JULIANN SILVA OF CARE | [address] | [address] | | | TESTS | | | [...] + + | [facility] | [address] | [place] | | | JULIANN SILVA OF CARE | [address] | [address] | | | TESTS | | | [...] [place] | [address] | [place], [place] | | | JULIANN SILVA OF [place] | [address] | [address] | | | TESTS | | | [...] [place] | [address] | [place] | | | [facility]ARE | [address] | [address] | | | TESTS | | | [...] | + + + + + | [facility] | [address] | [place] [address] | | | ARASH, ИРИНА | TABITHA [...] + + | [facility] | [address] | [place] [address] | | | SERVICES, CORE | PARK [...] | + + + + + | [facility] | [address] | [place] [address] | | | SERVICES, CORE | TABITHA [...] [place] | [address] | [place] | | | JULIANN SILVA OF CARE | [address] | [address] | | | TESTS | | | | + + + + + X-RAY PORTABLE CHEST 1 VIEW (03/20/2017 6:33 AM PDT) + + | Specimen | + + | | + + + + + | Narrative | Performed At | + + + | EXAM: CO CHEST 1 VIEW 03/20/17 04:29:28 HISTORY: ECMO [...] Note | + + | Service Account, ScribeStorm In Interface - 03/20/2017 10:12 AM PDT EXAM: CO CHEST 1 | | VIEW 03/20/17 04:29:28 [...] [place] | [address] | [place] | | | CHRISTIE SILVA [facility] | [facility] | [address] | | | TESTS | | | [...] MARQUAM | [address] | [place], [place] | | | JULIANN SILVA OF ALEXIS | [facility] | [address] | | | TESTS | | | [...] RODGERS | [address] | [place] | | | RICARDO POINT OF CARE | [address] | [address] | | | TESTS | | | [...] MARQUAM | [address] | [place] | | | JULIANN SILVA OF [facility] | [facility] | [address] | | | TESTS | | | [...] [facility] | [address] | [place] [address] | | | SERVICES, CORE | TABITHA [...] | + + + + + | [facility] | [address] | [place] [address] | | | SERVICES, CORE | [address] | | | + + + + + MAGNESIUM, PLASMA (03/20/2017 1:00 AM PDT) + +---------+ + + + | Component | Value | Ref Range | Performed | Pathologist | | | | | At | Signature | + +---------+ + + + | MAGNESIUM,P | 2.7 (H) | 1.8 - 2.5 mg/dL | [facility] | | | LASMA | | [...] | + + + + + | [facility] | [address] | [place] [address] | | | SERVICES, CORE | PARK [...] | + + + + + | [facility] | [address] | [place] [address] | | | SERVICES, CORE | TABITHA [...] | | | LABORATORY | | | JORDANIAN | | | SERVICES, | | | [...] | + + + + + | [facility] | [address] | [place] [address] | | | ARASH, ИРИНА | TABITHA [...] MARQUAM | [address] | [place] | | | HILL, POINT OF CARE | [address] | [address] | | | TESTS | | | [...] MARQUAM | [address] | [place] | | | JULIANN SILVA OF [facility] | [address] | [address] | | | TESTS | | | [...] | + + + + + | [facility] | [address] | [place] [address] | | | SERVICES, CORE | TABITHA [...] MARQUAM | [address] | [place] | | | JULIANN SILVA OF CARE | [address] | [address] | | | TESTS | | | [...] EULOGIO RODGERS | [address] | [place] | | | RICARDO HENRICO OF [facility] | [address] | [address] | | | TESTS | | | [...] | + + + + + | [facility] | [address] | [place] [address] | | | SERVICES, CORE | TABITHA [...] (H) | 70 - 99 mg/dL | [facility] - | | | GLUCOSE, | [...] RODGERS | [address] | [place] | | | JULIANN SILVA OF [place] | [facility] | [address] | | | TESTS | | | [...] | + + + + + | [facility] | [address] | [place] [address] | | | SERVICES, CORE | TABITHA [...] (H) | 70 - 99 mg/dL | [facility] - | | | GLUCOSE, | | | [facility] | | | POC | | | JULIANN SILVA | | | | | | OF CARE | | | | | | TESTS | | + +---------+ + + + + + | Specimen | + + | | + + + + + + + | Performing | Address | City/State[facility] | Phone Number | | Organization | | | | + + + + + | [facility] | [address] | [place] | | | JULIANN SILVA OF [place] | [facility] | [address] | | | TESTS | | | [...] | + + + + + | [facility] | [address] | [place] [address] | | | SERVICES, CORE | PARK [...] | + + + + + | [facility] | [address] | [place] [address] | | | ИРИНА ANTOINE | TABITHA [...] (H) | 70 - 99 mg/dL | [facility] - | | | GLUCOSE, | [...] MARIA | [address] | [place] | | | RICARDO POINT OF CARE | [address] | [address] | | | TESTS | | | [...] | 118 (L) | >300 mmHg | [facility] | | | RATIO | | | [...] | + + + + + | [facility] | [address] | [place] [address] | | | ARASH, ИРИНА | TABITHA [...] [facility] | [address] | [place] [address] | | | SERVICES, CORE | PARK [...] [facility] | [address] | [place] [address] | | | ARASH, ИРИНА | PARK [...] | + + + + + | [facility] | [address] | [place] [address] | | | SERVICES, CORE | TABITHA [...] (H) | 70 - 99 mg/dL | [facility] - | | | GLUCOSE, | [...] RODGERS | [address] | [place] | | | JULIANN SILVA OF [place] | [address] | [address] | | | TESTS | | | [...] MARQUAM | [address] | [place] | | | RICARDO POINT OF CARE | [address] | [address] | | | TESTS | | | [...] ANA MARIA | [address] | [place], [place] | | | RICARDO HENRICO OF [facility] | [address] | [address] | | | TESTS | | | [...] [facility] | [address] | [place] [address] | | | SERVICES, CORE | TABITHA [...] [facility] OF | [address] | [place] | | | CARDIOLOGY | [address] | [address] | | + + + + + [...] MARQUAM | [address] | [place] | | | JULIANN SILVA OF CARE | [address] | [address] | | | TESTS | | | | + + + + + CP-GU-WIJ-HB,POC RT (03/19/2017 1:04 PM PDT) + + [...] MARQUAM | [address] | [place] | | | JULIANN SILVA OF CARE | [address] | [address] | | | TESTS | | | [...] + + + + | PRODUCT | [id number] | | [facility] | | | UNIT [...] + + + + | EXPIRATION | [id number] | | [facility] | | | DATE [...] + + + + | BLOOD | [id number] | | [facility] | | | PRODUCT [...] [facility] | [address] | [place] [address] | | | SERVICES, | [address] [...] + + + + | PRODUCT | [id number] | | [facility] | | | UNIT [...] + + + + | EXPIRATION | [id number] | | [facility] | | | DATE [...] + + + + | BLOOD | [id number] | | [facility] | | | PRODUCT [...] [facility] | [address] | [place] [address] | | | SERVICES, | [address] [...] + + + + | PRODUCT | [id number] | | [facility] | | | UNIT [...] + + + + | EXPIRATION | [id number] | | [facility] | | | DATE [...] + + + + | BLOOD | [id number] | | [facility] | | | PRODUCT [...] LABORATORY | [address] | [place] [address] | | | SERVICES, | [address] [...] + + + + | PRODUCT | [id number] | | [facility] | | | UNIT [...] + + + + | EXPIRATION | [id number] | | [facility] | | | DATE [...] + + + + | BLOOD | [id number] | | [facility] | | | PRODUCT [...] [facility] | [address] | [place] [address] | | | SERVICES, | [address] [...] | + + + + + | [facility] | [address] | [place] [address] | | | SERVICES, CORE | TABITHA [...] | | | LABORATORY | | | JORDANIAN | | | SERVICES, | | | [...] [facility] | [address] | [place] [address] | | | ARASH, ИРИНА | PARK [...] [facility] | [address] | [place] [address] | | | SERVICES, CORE | PARK [...] | + + + + + | [facility] | [address] | [place] [address] | | | SERVICES, CORE | [address] | | | + + + + + CO ECMO REV (EXT)AND/OR DECANNULATION (03/19/2017 12:36 PM [...] GISELL Preston PhD [place] [address] [id number] [place], | | | [place] [address] | | + + + ABG-FULL ABL, POC (03/19/2017 12:14 PM PDT) + + + + + + | Component | Value | Ref Range | Performed | Pathologist | | | | | At | Signature | + + + + + + | PH | 7.42 | 7.37 - 7.44 | [facility] - | | | ARTERIAL, | [...] - MARQUAM | [address] | [place], [place] | | | JULIANN SILVA OF CARE | [address] | [address] | | | TESTS | | | [...] ANA MARIA | [address] | [place], [place] | | | JULIANN SILVA OF CARE | [facility] | [address] | | | TESTS | | | | + + + + + KL-SI-OGS-HB,POC RT (03/19/2017 10:24 AM PDT) + + [...] - MARQUAM | [address] | [place], [place] | | | JULIANN SILVA OF CARE | [address] | [address] | | | TESTS | | | [...] RODGERS | [address] | [place] | | | RICARDO POINT OF CARE | [address] | [address] | | | TESTS | | | | + + + + + DM-ES-JAN-HB,POC RT (03/19/2017 10:06 AM PDT) + + [...] + + + | EULOGIO R[facility] | [address] | [place] | | | RICARDO POINT OF CARE | [address] | [address] | | | TESTS | | | | + + + + + UP-NU-VOV-KARY ISIDRO RT (03/19/2017 9:51 AM PDT) + [...] MARIA | [address] | [place] | | | JULIANN SILVA OF A[place] | [address] | [address] | | | TESTS | | | [...] + + + + | PRODUCT | [id number] | | [facility] | | | UNIT [...] + + + + | EXPIRATION | [id number] | | [facility] | | | DATE [...] + + + + | BLOOD | [id number] | | [facility] | | | PRODUCT [...] | + + + + + | [facility] | [address] | [place] [address] | | | SERVICES, | [address] [...] + + + + | PRODUCT | [id number] | | [facility] | | | UNIT [...] + + + + | EXPIRATION | [id number] | | [facility] | | | DATE [...] + + + + | BLOOD | [id number] | | [facility] | | | PRODUCT [...] | + + + + + | [facility] | [address] | [place] [address] | | | SERVICES, | [address] [...] + + + + | PRODUCT | [id number] | | [facility] | | | UNIT [...] + + + + | EXPIRATION | [id number] | | [facility] | | | DATE [...] + + + + | BLOOD | [id number] | | [facility] | | | PRODUCT [...] | + + + + + | [facility] | [address] | [place] [address] | | | SERVICES, | [address] [...] + + + + | PRODUCT | [id number] | | [facility] | | | UNIT [...] + + + + | EXPIRATION | [id number] | | [facility] | | | DATE [...] + + + + | BLOOD | [id number] | | [facility] | | | PRODUCT [...] [facility] | [address] | [place] [address] | | | SERVICES, | [address] | | | | TRANSFUSION MEDICINE | | | | + + + + + X-RAY PORTABLE CHEST 1 VIEW (03/19/2017 9:13 AM PDT) + + | Specimen | + + | | + + + + + | Narrative | Performed At | + + + | EXAM: CO CHEST 1 VIEW HISTORY: ECMO. Evaluate cannula | [facility] | | placement. COMPARISON: Yesterday FINDINGS: Endotracheal | RADIOLOGY VOICE | | tube, Kopperl-Олег catheter and enteric tube remain in place. [...] Note | + + | Service Account, ScribeStorm In Interface - 03/19/2017 9:17 AM PDT EXAM: CO CHEST 1 | | VIEW HISTORY: ECMO. Evaluate cannula placement.COMPARISON: YesterdayFINDINGS: | | Endotracheal tube, Kopperl-Олег catheter and enteric tube remain in place. [...] - MARRANDIAM | [address] | [place], [place] | | | JULIANN SILVA OF CARE | [address] | [address] | | | TESTS | | | [...] RODGERS | [address] | [place] | | | JULIANN SILVA OF CARE | [address] | [address] | | | TESTS | | | [...] [facility] | [address] | [place] [address] | | | SERVICES, CORE | PARK [...] - MARRANDIAM | [address] | [place], [place] | | | RICARDO POINT OF CARE | [address] | [address] | | | TESTS | | | [...] (H) | 70 - 99 mg/dL | [facility] - | | | GLUCOSE, | [...] + + + | EULOGIO R[facility]GERS | [address] | [place] | | | JULIANN SILVA OF [facility] | [address] | [address] | | | TESTS | | | [...] MARQUAM | [address] | [place] | | | JULIANN SILVA OF [place] | [facility] | [address] | | | TESTS | | | [...] ANA MARIA | [address] | [place] | | | RICARDO POINT OF CARE | [address] | [address] | | | TESTS | | | [...] | + + + + + | [facility] | [address] | [place] [address] | | | SERVICES, CORE | TABITHA [...] (H) | 70 - 99 mg/dL | [facility] - | | | GLUCOSE, | [...] RODGERS | [address] | [place] | | | JULIANN SILVA OF ALEXIS | [facility] | [address] | | | TESTS | | | [...] MARQUAM | [address] | [place], [place] | | | JULIANN SILVA OF CARE | [address] | [address] | | | TESTS | | | [...] (H) | 70 - 99 mg/dL | [facility] - | | | GLUCOSE, | [...] MARIA | [address] | [place] | | | RICARDO POINT OF CARE | [address] | [address] | | | TESTS | | | [...] | + + + + + | [facility] | [address] | [place] [address] | | | ARASH, ИРИНА | TABITHA [...] EULOGIO RODGERS | [address] | [place], [place] | | | JULIANN SILVA OF [facility] | [facility] | [address] | | | TESTS | | | [...] [facility] | [address] | [place] [address] | | | SERVICES, CORE | PARK [...] | + + + + + | [facility] | [address] | [place] [address] | | | SERVICES, CORE | [address] | | | + + + + + MAGNESIUM, PLASMA (03/19/2017 1:11 AM PDT) + +---------+ + + + | Component | Value | Ref Range | Performed | Pathologist | | | | | At | Signature | + +---------+ + + + | MAGNESIUM,P | 2.6 (H) | 1.8 - 2.5 mg/dL | [facility] | | | LASMA | | | [...] | + + + + + | [facility] | [address] | [place] [address] | | | SERVICES, CORE | TABITHA [...] | + + + + + | [facility] | [address] | [place] [address] | | | SERVICES, CORE | TABITHA [...] [facility] | [address] | [place] [address] | | | SERVICES, CORE | PARK [...] [facility] | [address] | [place] [address] | | | ARASH, ИРИНА | TABITHA [...] | | | LABORATORY | | | JORDANIAN | | | SERVICES, | | | [...] | + + + + + | [facility] | [address] | [place] [address] | | | SERVICES, CORE | TABITHA [...] [facility] | [address] | [place] [address] | | | SERVICES, CORE | PARK [...] | + + + + + | [facility] | [address] | [place] [address] | | | SERVICES, CORE | PARK [...] (H) | 70 - 99 mg/dL | [facility] - | | | GLUCOSE, | [...] RODGERS | [address] | [place] | | | JULIANN SILVA OF ALEXIS | [facility] | [address] | | | TESTS | | | [...] | + + + + + | [facility] | [address] | [place] [address] | | | SERVICES, CORE | TABITHA [...] (H) | 70 - 99 mg/dL | [facility] - | | | GLUCOSE, | | [...] RODGERS | [address] | [place] | | | RICARDO POINT OF CARE | [address] | [address] | | | TESTS | | | [...] MARQUAM | [address] | [place] | | | RICARDO POINT OF CARE | [address] | [address] | | | TESTS | | | [...] | + + + + + | [facility] | [address] | [place] [address] | | | SERVICES, CORE | TABITHA [...] (H) | 70 - 99 mg/dL | [facility] - | | | GLUCOSE, | [...] RODGERS | [address] | [place] | | | JULIANN SILVA OF [facility] | [address] | [address] | | | TESTS | | | [...] MARQUAM | [address] | [place] | | | JULIANN SILVA OF CARE | [address] | [address] | | | TESTS | | | [...] ANA MARIA | [address] | [place] | | | RICARDO POINT OF CARE | [address] | [address] | | | TESTS | | | [...] [facility] | [address] | [place] [address] | | | SERVICES, CORE | PARK [...] | + + + + + | [facility] | [address] | [place] [address] | | | SERVICES, CORE | TABITHA [...] (H) | 70 - 99 mg/dL | [facility] - | | | GLUCOSE, | [...] RODGERS | [address] | [place] | | | JULIANN SILVA OF [facility] | [address] | [address] | | | TESTS | | | [...] | + + + + + | [facility] | [address] | [place] [address] | | | SERVICES, ИРИНА | TABITHA [...] MARIA | [address] | [place], [place] | | | JULIANN SILVA OF CARE | [facility] | [address] | | | TESTS | | | [...] (H) | 70 - 99 mg/dL | [facility] - | | | GLUCOSE, | [...] RODGERS | [address] | [place] | | | JULIANN SILVA OF CARE | [facility] | [address] | | | TESTS | | | [...] | + + + + + | [facility] | [address] | [place] [address] | | | SERVICES, CORE | PARK [...] | + + + + + | [facility] | [address] | [place] [address] | | | ARASH, ИРИНА | TABITHA [...] [facility] | [address] | [place] | | | RICARDO POINT OF CARE | [address] | [address] | | | TESTS | | | [...] ANA MARIA | [address] | [place], [place] | | | [facility] | [address] | [address] | | | TESTS | | | [...] [facility] | [address] | [place] [address] | | | SERVICES, CORE | PARK [...] | + + + + + | [facility] | [address] | [place] [address] | | | SERVICES, CORE | PARK [...] [facility] | [address] | [place] [address] | | | SERVICES, CORE | PARK [...] | + + + + + | [facility] | [address] | [place] [address] | | | SERVICES, CORE | TABITHA [...] | | | LABORATORY | | | JORDANIAN | | | SERVICES, | | | [...] [facility] | [address] | [place] [address] | | | SERVICES, CORE | TABITHA [...] | + + + + + | [facility] | [address] | [place] [address] | | | SERVICES, CORE | TABITHA [...] | + + + + + | [facility] | [address] | [place] [address] | | | ARASH, ИРИНА | TABITHA [...] [facility] | [address] | [place] [address] | | | SERVICES, CORE | PARK [...] MARQU[facility] | [address] | [place], [place] | | | [facility] POINT OF CARE | [address] | [address] | | | TESTS | | | [...] RODGERS | [address] | [place] | | | R[facility] POINT OF CARE | [address] | [address] | | | TESTS | | | [...] [facility] | [address] | [place] [address] | | | SERVICES, CORE | PARK [...] MARIA | [address] | [place], [place] | | | RICARDO POINT OF [facility] | [address] | [address] | | | TESTS | | | [...] | + + + + + | [facility] | [address] | [place] [address] | | | SERVICES, CORE | PARK [...] | + + + + + | [facility] | [address] | [place] [address] | | | SERVICES, CORE | PARK [...] | + + + + + | [facility] | [address] | [place] [address] | | | [facility] [...] R[facility] | [address] | [place] | | | R[facility]ARDO POINT OF CARE | [address] | [address] | | | TESTS | | | [...] RODGERS | [address] | [place], [place] | | | JUL[facility]ANN SILVA OF [facility] | [address] | [address] | | | TESTS | | | [...] [facility] | [address] | [place] [address] | | | SERVICES, ИРИНА | TABITHA [...] [facility] | [address] | [place] [address] | | | ARASH, ИРИНА | TABITHA [...] (H) | 70 - 99 mg/dL | [facility] - | | | GLUCOSE, | [...] MARQU[facility] | [address] | [place] | | | JULIANN SILVA OF [facility] | [facility] | [address] | | | TESTS | | | [...] RODGERS | [address] | [place] | | | JULIANN SILVA [facility] | [address] | [address] | | | TESTS | | | | + + + + + X-RAY PORTABLE CHEST 1 VIEW (03/18/2017 6:05 AM PDT) + + | Specimen | + + | | + + + + + | Narrative | Performed At | + + + | EXAM: CO CHEST 1 VIEW HISTORY: ECMO. Evaluate cannula placement. | [facility] | | COMPARISON: Yesterday FINDINGS: Endotracheal tube tip is | RADIOLOGY VOICE | | 2.5 cm above the jefferson. Enteric tube tip in the stomach. Kopperl-Олег | RECOGNITION | | catheter tip projects [...] Note | + + | Service Account, ScribeStorm In Interface - 03/18/2017 8:39 AM PDT EXAM: CO CHEST 1 | | VIEW HISTORY: ECMO. Evaluate cannula placement.COMPARISON: YesterdayFINDINGS: | | Endotracheal tube tip is 2.5 cm above the jefferson. Enteric tube tip in the stomach. | | Kopperl-Олег catheter tip projects in the main pulmonary [...] [facility] | [address] | [place] | | | R[facility]O POINT OF CARE | [address] | [address] | | | TESTS | | | [...] MARIA | [address] | [place], [place] | | | RICARDO HENRICO OF [facility] | [facility] | [address] | | | TESTS | | | [...] | + + + + + | [facility] | [address] | [place] [address] | | | SERVICES, CORE | TABITHA [...] RODGERS | [address] | [place], [place] | | | [facility] | [address] | [address] | | | TESTS | | | [...] ANA MARIA | [address] | [place], [place] | | | JULIANN SILVA OF [facility] | [address] | [address] | | | TESTS | | | [...] [facility] | [address] | [place] [address] | | | SERVICES, | [address] [...] [facility] | [address] | [place] [address] | | | SERVICES, | [address] [...] + + + + | PRODUCT | [id number] | | [facility] | | | UNIT [...] + + + + | EXPIRATION | [id number] | | [facility] | | | DATE [...] + + + + | BLOOD | [id number] | | [facility] | | | PRODUCT [...] [facility] | [address] | [place] [address] | | | SERVICES, | [address] [...] MARIA | [address] | [place], [place] | | | JULIANN SIL[facility] | [address] | [address] | | | TESTS | | | [...] [facility] | [address] | [place] [address] | | | SERVICES, CORE | TABITHA [...] + + | [facility] | [address] [facility] | [place] [address] | | | SERVICES, ИРИНА | TABITHA [...] | + + + + + | [facility] | [address] | [place] [address] | | | SERVICES, CORE | PARK [...] [facility] | [address] | [place] [address] | | | SERVICES, CORE | PARK [...] | | | LABORATORY | | | JORDANIAN | | | SERVICES, | | | [...] | + + + + + | [facility] | [address] | [place] [address] | | | SERVICES, ИРИНА | TABITHA [...] | + + + + + | [facility] | [address] | [place] [address] | | | SERVICES, CORE | PARK [...] | + + + + + | [facility] | [address] | [place] [address] | | | SERVICES, CORE | TABITHA [...] [facility] | [address] | [place] [address] | | | SERVICES, CORE | TABITHA [...] Zoe [facility] | [address] | [place], [place] | | | JULIANN SILVA OF [facility] | [facility] | [address] | | | TESTS | | | [...] [facility] | [address] | [place] [address] | | | SERVICES, CORE | TABITHA [...] [facility] | [address] | [place] [address] | | | ИРИНА ANTOINE | TABITHA [...] ANA MARIA | [address] | [place], [place] | | | JUL[facility]ANN [facility] | [facility] | [address] | | | TESTS | | | [...] (H) | 60 - 99 mg/dL | [facility] - | | | GLUCOSE, | [...] R[facility] | [address] | [place], [place] | | | J[facility] | [facility] | [address] | | | TESTS | | | [...] MARIA | [address] | [place], [place] | | | JULIANN [facility] | [address] | [address] | | | TESTS | | | [...] [facility] | [address] | [place], [place] | | | JUL[facility]ANN [facility] | [address] | [address] | | | TESTS | | | [...] | + + + + + | [facility] | [address] | [place] [address] | | | SERVICES, CORE | TABITHA [...] (H) | 60 - 99 mg/dL | [facility] - | | | GLUCOSE, | [...] R[facility] | [address] | [place], [place] | | | [facility] | [address] | [address] | | | TESTS | | | [...] [facility] | [address] | [place] [address] | | | SERVICES, ИРИНА | PARK [...] [facility] | [address] | [place] [address] | | | ИРИНА ANTOINE | PARK [...] [facility] | [address] | [place] [address] | | | SERVICES, CORE | PARK [...] | + + + + + | [facility] | [address] | [place] [address] | | | SERVICES, CORE | TABITHA [...] | + + + + + | [facility] | [address] | [place] [address] | | | SERVICES, CORE | PARK [...] MARQU[facility] | [address] | [place], [place] | | | JULIANN [facility]IL[facility] | [facility] | [address] | | | TESTS | | | [...] (H) | 60 - 99 mg/dL | [facility] - | | | GLUCOSE, | [...] MARIA | [address] | [place], [place] | | | JULIANN SILVA OF [facility] | [address] | [address] | | | TESTS | | | [...] | 58 (L) | >300 mmHg | [facility] | | | RATIO | | [...] | + + + + + | [facility] | [address] | [place] [address] | | | SERVICES, CORE | PARK [...] MARQU[facility] | [address] [address] | [place] | | | JULIANN SILVA OF CARE | [facility] | [address] | | | TESTS | | | [...] MARIA | [address] | [place] | | | JULIANN SILVA OF [facility] | [address] | [address] | | | TESTS | | | [...] + + + + | PRODUCT | [id number] | | [facility] | | | UNIT [...] + + + + | EXPIRATION | [id number] | | [facility] | | | DATE [...] + + + + | BLOOD | [id number] | | [facility] | | | PRODUCT [...] | + + + + + | [facility] | [address] | [place] [address] | | | SERVICES, | [address] [...] + + + + | PRODUCT | [id number] | | [facility] | | | UNIT [...] + + + + | EXPIRATION | [id number] | | [facility] | | | DATE [...] + + + + | BLOOD | [id number] | | [facility] | | | PRODUCT [...] | + + + + + | [facility] | [address] [facility] | [place] [address] | | | SERVICES, | [address] [...] MARQUAM | [address] | [place] | | | JULIANN SILVA OF CARE | [address] | [address] | | | TESTS | | | [...] [facility] | [address] | [place] [address] | | | SERVICES, CORE | PARK [...] [facility] | [address] | [place] [address] | | | SERVICES, CORE | PARK [...] [facility] | [address] | [place] [address] | | | SERVICES, CORE | PARK [...] [facility] | [address] | [place] [address] | | | SERVICES, CORE | TABITHA [...] | | | LABORATORY | | | JORDANIAN | | | SERVICES, | | | [...] | + + + + + | [facility] | [address] | [place] [address] | | | SERVICES, CORE | PARK [...] [facility] | [address] | [place] [address] | | | SERVICES, CORE | TABITHA [...] [facility] | [address] | [place] [address] | | | SERVICES, CORE | TABITHA [...] | 115 (L) | >300 mmHg | [facility] | | | RATIO | | | [...] | + + + + + | [facility] | [address] | [place] [address] | | | ARASH, ИРИНА | PARK [...] MARQUAM | [address] | [place] | | | R[facility]ARDO [facility]INT OF CARE | [address] | [address] | | | TESTS | | | [...] | + + + + + | [facility] | [address] | [place] [address] | | | SERVICES, CORE | TABITHA [...] (H) | 60 - 99 mg/dL | [facility] - | | | GLUCOSE, | | [...] R[facility] | [address] | [place] | | | [facility] CARE | [address] | [address] | | | TESTS | | | [...] Note | + + | Service Account, ScribeStorm In Interface - 03/17/2017 6:18 PM PDT [...] Note | + + | Service Account, ScribeStorm In Interface - 03/17/2017 6:17 PM PDT [...] R[facility] | [address] | [place] | | | [facility]INT OF CARE | [address] | [address] | | | TESTS | | | [...] | + + + + + | [facility] | [address] | [place] [address] | | | SERVICES, CORE | TABITHA [...] | EJECTION | 22.5 | % | [facility] DEPT | | | FRACTION | | | OF | | | RANGE MEAN | | | CARDIOLOGY | | | VALUE | | | | | + + + + + + + + | Specimen | + + | | + + + + -------+ | Narrative | Performed At | + + -------+ | [facility] | [facility] DE PT OF | | [facility] Adult Echocardiography | CARDIOLOG Y | | [place] [address] [facility] | | | [place] [address] Pt Name: | | | RON MCKEON Study Date/Time 03/17/2017 / 10:30:26 | | | AMMRN: [id number] Most recent | | | prior: 03/15/2017Acc #: [id number] No. | | | previous echos: 1DOB: 1955 61 years Heart | | | Rate: 139 bpmHeight: 69.0 | | | in Blood Pressure: 133/83 | | | mm/HgWeight: 258.0 | | | lb Gender: | | | MBSA: 2.30 m2 Order | | | ID: [id number] Signal Worker: Mauri Domingo [facility] | | | Referring Provider: Mellisa Rubalcava [facility] | | | Performed: Limited 2D, Color Doppler and Spectral Doppler | | | Limited.Study Quality: Fair.Exam Indication: Heart failure; ECMO; s/p | | | STEMIHistory: 61 year old male with a past medical history significant | | | for hypertension, hyperlipidemia, ongoing tobacco use and | | | pre-diabetes who is transferred to [facility] with cardiogenic shock in the | [...] | | | Report electronically signed by: [id number] Jen Ovalle MD, PhD | | | (03/17/2017, 1:53:40 PM) Final | | | | | |Report electronically signed by: [id number] Jen Ovalle MD, PhD (03/17/2017, | | |1:53:40 PM) | | | | | | | | | | | | Final | | + + -------+ + + | Procedure Note | + + | Interface, Cardiology Results - 03/17/2017 1:53 PM [facility] [employer] | | [facility] Echocardiography Laboratory [address] [place] [address] | | [place], [place] [address] Pt Name: RON MCKEON Study Date/Time 03/17/2017 / 10:30:26 AMMRN: [id number] Most | | recent prior: 03/15/2017Acc #: [id number] No. previous echos: 1DOB: | | 1955 61 years Heart Rate: 139 bpmHeight: 69.0 in Blood | | Pressure: 133/83 mm/HgWeight: 258.0 lb Gender: MBSA: | | 2.30 m2 Order ID: [id number] Signal Worker: Mauri Domingo | | RDCSReferring Provider: Mellisa Rubalcava Location: [facility] Performed: | | Limited 2D, Color Doppler and Spectral Doppler Limited.Study Quality: Fair.Exam | | Indication: Heart failure; ECMO; s/p STEMIHistory: 61 year old male with a past medical | | history significant for hypertension, hyperlipidemia, ongoing tobacco use and | | pre-diabetes who is transferred to [facility] with cardiogenic shock in the setting [...] | | Scoring: Report electronically signed by: [id number] Jen Ovalle MD, PhD (03/17/2017, | | [...] | | | |Report electronically signed by: [id number] Jen Ovalle MD, PhD (03/17/2017, | |1:53:40 PM) | | | | | | | | Final | + + + + + + + | Performing | Address | City/State/Zipcode | Phone Number | | Organization | | | | + + + + + | [facility] | [address] | [place] | | | CARDIOLOGY | [address] | [address] | | + + + + + [...] R[facility]GERS | [address] | [place] | | | [facility]ARE | [address] | [address] | | | TESTS | | | [...] MARQUAM | [address] | [place] | | | [facility] | [address] | [address] | | | TESTS | | | [...] [facility] | [address] | [place] [address] | | | SERVICES, CORE | PARK [...] [facility] | [address] | [place] [address] | | | SERVICES, CORE | PARK [...] | + + + + + | [facility] | [address] | [place] [address] | | | SERVICES, ИРИНА | TABITHA [...] MARQUAM | [address] | [place] | | | [facility]ARE | [facility] | [address] | | | TESTS | | | [...] - MARQU[facility] | [address] | [place] | | | [facility]ARE | [address] | [address] | | | TESTS | | | [...] + + + | EULOG[facility] | [address] | [place] | | | RICARDO POINT OF [facility] | [address] | [address] | | | TESTS | | | [...] [facility] | [address] | [place] [address] | | | SERVICES, CORE | TABITHA [...] | + + + + + | [facility] | [address] | [place] [address] | | | SERVICES, CORE | [address] | | | + + + + + X-RAY PORTABLE CHEST 1 VIEW (03/17/2017 5:37 AM PDT) + + | Specimen | + + | | + + + + + | Narrative | Performed At | + + + | EXAM: CO CHEST 1 VIEW 03/17/17 04:53:29 HISTORY: On [...] | + + | Service Account, Arely Datacratic In Interface - 03/17/2017 9:44 AM PDT EXAM: CO CHEST 1 | | VIEW 03/17/17 04:53:29 [...] BLUAM | [address] | [place] | | | JULIANN SILVA OF CARE | [address] | [address] | | | TESTS | | | [...] [facility] | [address] | [place] [address] | | | SERVICESИРИНА | [address] [...] | | | LABORATORY | | | JORDANIAN | | | SERVICES, | | | [...] | + + + + + | [facility] | [address] | [place] [address] | | | SERVICES, ИРИНА | TABITH[address] [...] | + + + + + | [facility] | [address] | [place] [id number] | | | ИРИНА ANTOINE | TABITHA [...] MARQUAM | [address] | [place] | | | JULIANN SILVA OF CARE | [address] | [address] | | | TESTS | | | [...] | + + + + + | [facility] | [address] | [place] [address] | | | SERVICES, CORE | PARK [...] | + + + + + | [facility] | [address] [facility] | [place] [address] | | | SERVICES, CORE | TABITHA [...] | + + + + + | [facility] | [address] | [place] [address] | | | SERVICES, CORE | TABITHA [...] | + + + + + | [facility] | [address] | [place] [address] | | | ARASH, ИРИНА | PARK [...] [facility] | [address] | [place] [address] | | | SERVICES, CORE | PARK [...] [facility] | [address] | [place] [address] | | | SERVICES, CORE | PARK [...] [facility] | [address] | [place] [address] | | | SERVICES, CORE | PARK [...] | + + + + + | [facility] | [address] | [place] [address] | | | SERVICES, CORE | TABITHA [...] | + + + + + | [facility] | [address] | [place] [address] | | | SERVICES, CORE | PARK [...] [facility] | [address] | [place] [address] | | | SERVICES, CORE | TABITHA [...] DEPT OF | [address] | [place] | | | CARDIOLOGY | [address] | [address] | | + + + + + JB-GB-RGX-HB,POC RT (03/17/2017 12:44 AM PDT) + + [...] R[facility] | [address] | [place] | | | [facility]ARE | [address] | [address] | | | TESTS | | | [...] MARRANDIAM | [address] | [place], [place] | | | JULIANN SILVA OF CARE | [facility] | [address] | | | TESTS | | | [...] BLUAM | [address] | [place] | | | JULIANN SILVA OF CARE | [address] | [address] | | | TESTS | | | [...] | + + + + + | [facility] | [address] | [place] [address] | | | SERVICES, ИРИНА | TABITHA [...] MARQUAM | [address] | [place] | | | [facility] CARE | [address] | [address] | | | TESTS | | | [...] ANA MARIA | [address] | [place], [place] | | | [facility] CARE | [address] | [address] | | | TESTS | | | [...] | + + + + + | [facility] | [address] | [place] [address] | | | SERVICES, CORE | TABITHA [...] MARIA | [address] | [place], [place] | | | JULIANN SILVA OF [facility] | [address] | [address] | | | TESTS | | | [...] | + + + + + | [facility] | [address] | [place] [address] | | | ИРИНА ANTOINE | TABITHA [...] (H) | 60 - 99 mg/dL | [facility] - | | | GLUCOSE, | [...] MARIA | [address] | [place] | | | [facility] CARE | [address] | [address] | | | TESTS | | | [...] MARIA | 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 | | | and site/side marked as [...] + + | [facility] | [address] [facility] | [place] [address] | | | SERVICES, CORE | PARK [...] [facility] | [address] | [place] [address] | | | SERVICES, CORE | PARK [...] [facility] | [address] | [place] [address] | | | SERVICES, CORE | PARK [...] [facility] | [address] | [place] [address] | | | SERVICES, CORE | PARK [...] | | | LABORATORY | | | JORDANIAN | | | SERVICES, | | | [...] | + + + + + | [facility] | [address] | [place] [address] | | | SERVICES, CORE | TABITHA [...] [facility] | [address] | [place] [address] | | | SERVICES, CORE | PARK [...] | + + + + + | [facility] | [address] | [place] [address] | | | SERVICES, CORE | TABITHA [...] RODGERS | [address] | [place], [place] | | | JULIANN SILVA OF [facility] | [address] | [address] | | | TESTS | | | [...] MARIA | [address] | [place] | | | JULIANN SILVA OF [place] | [facility] | [address] | | | TESTS | | | | + + + + + CAPILLARY BLOOD GLUCOSE (NO CHG), POC (03/16/2017 1:16 PM PDT) + +-------+ + + + | Component | Value | Ref Range | Performed | Pathologist | | | | | At | Signature | + +-------+ + + + | BLOOD | 90 | 60 - 99 mg/dL | [facility] - | | | GLUCOSE, | [...] NINOSKAQUAM | [address] | [place], [place] | | | [facility]INT OF CARE | [address] | [address] | | | TESTS | | | [...] RODGERS | [address] | [place], [place] | | | GURINDER SILVA | [facility] | [address] | | | TESTS | | | [...] | + + + + + | [facility] | [address] [facility] | [place] [address] | | | SERVICES, ИРИНА | TABITHA [...] | | | LABORATORY | | | JORDANIAN | | | SERVICES, | | | [...] | + + + + + | [facility] | [address] | [place] [address] | | | SERVICES, CORE | TABITHA [...] (H) | 60 - 99 mg/dL | [facility] - | | | GLUCOSE, | [...] MARIA | [address] | [place], [place] | | | GURINDER SILVA | [facility] | [address] | | | TESTS | | | [...] | + + + + + | [facility] | [address] | [place] [address] | | | ИРИНА ANTOINE | TABITHA [...] MARQUAM | [address] | [place] | | | JULIANN SILVA OF CARE | [facility] | [address] | | | TESTS | | | | + + + + + OPERATION RECORD (03/16/2017 9:30 AM PDT) + + | Procedure Note | + + | Dale Mak MD - 03/15/2017 3:42 PM PDT Date of Service: 03/15/2017 Attending | | Surgeon:Ron Powell MD. Veneer Sorter(s):Dale Mak MD. | | Preoperative Diagnoses: 1.Cardiogenic [...] The | | patient was transferred to [facility] for further management. At [facility], the patient continued | | to [...] cannulation with micropuncture | | wire. A 7-Kazakh sheath was placed in an antegrade direction down the SFA for distal | | perfusion. A 19-Kazakh arterial cannula was placed in a retrograde [...] 03/15/2017 15:23:00DT: 03/15/2017 15:42:27Job #: | | [id number] | | | |A 19-Kazakh arterial cannula was placed in a retrograde [...] |HS/MODL | | | | | | /[id number] | + + CBC (HEMOGRAM) ONLY (03/16/2017 [...] [facility] | [address] | [place] [address] | | | SERVICES, CORE | PARK [...] [facility] | [address] | [place] [address] | | | SERVICES, CORE | PARK [...] | + + + + + | [facility] | [address] | [place] [address] | | | SERVICES, CORE | TABITHA [...] MARQUAM | [address] | [place] | | | JULIANN SILVA OF [facility] | [address] | [address] | | | TESTS | | | [...] BLUAM | [address] | [place], [place] | | | JULIANN SILVA OF CARE | [facility] | [address] | | | TESTS | | | [...] R[facility] | [address] | [place] | | | [facility]INT [facility] CARE | [address] | [address] | | | TESTS | | | | + + + + + X-RAY PORTABLE CHEST 1 VIEW (03/16/2017 5:44 AM PDT) + + | Specimen | + + | | + + + + + | Narrative | Performed At | + + + | EXAM: CO CHEST 1 VIEW HISTORY: Evaluate cannula placement. heart | [facility] | | failure. COMPARISON: Yesterday FINDINGS: Endotracheal | RADIOLOGY VOICE | | tube, Kopperl-Олег catheter and enteric tube remain in place. [...] Note | + + | Service Account, ScribeStorm In Interface - 03/16/2017 8:27 AM PDT EXAM: CO CHEST 1 | | VIEW HISTORY: Evaluate cannula placement. heart failure.COMPARISON: YesterdayFINDINGS: | | Endotracheal tube, Kopperl-Олег catheter and enteric tube remain in place. [...] MARIA | [address] | [place], [place] | | | [facility]INT [facility] CARE | [address] | [address] | | | TESTS | | | [...] (H) | 60 - 99 mg/dL | [facility] - | | | GLUCOSE, | [...] R[facility] | [address] | [place] | | | JULIANN SILVA OF [facility] | [facility] | [address] | | | TESTS | | | | + + + + + KA-AW-UOT-KARY ISIDRO RT (03/16/2017 3:42 AM PDT) + [...] MARQUAM | [address] | [place], [place] | | | JULIANN SILVA OF [facility] | [address] | [address] | | | TESTS | | | [...] RODGERS | [address] | [place] | | | [facility]O POINT OF CARE | [address] | [address] | | | TESTS | | | [...] | + + + + + | [facility] | [address] | [place] [address] | | | SERVICES, CORE | TABITHA [...] R[facility]GERS | [address] | [place] | | | JULIANN SILVA OF [facility] | [address] | [address] | | | TESTS | | | [...] | + + + + + | [facility] | [address] | [place] [address] | | | SERVICES, ИРИНА | TABITHA [...] [facility] | [address] | [place] [address] | | | SERVICES, CORE | PARK [...] | | | LABORATORY | | | JORDANIAN | | | SERVICES, | | | [...] | + + + + + | [facility] | [address] | [place] [address] | | | SERVICES, CORE | TABITHA [...] [facility] | [address] | [place] [address] | | | SERVICES, CORE | PARK [...] | + + + + + | [facility] | [address] | [place] [address] | | | SERVICES, CORE | PARK [...] | + + + + + | [facility] | [address] | [place] [address] | | | ARASH, ИРИНА | TABITHA [...] | + + + + + | [facility] | [address] | [place] [address] | | | SERVICES, CORE | TABITHA [...] (H) | 60 - 99 mg/dL | [facility] - | | | GLUCOSE, | [...] RODGERS | [address] | [place] | | | JULIANN SILVA OF CARE | [address] | [address] | | | TESTS | | | [...] [facility] | [address] | [place] [address] | | | SERVICES, CORE | PARK [...] E[facility]OGIO [facility] | [address] | [place] | | | JULIANN SILVA OF [facility] | [address] | [address] | | | TESTS | | | [...] | + + + + + | [facility] | [address] [facility] | [place] [address] | | | SERVICES, CORE | TABITHA [...] | | | LABORATORY | | | JORDANIAN | | | SERVICES, | | | [...] AST CMNT | No Hemo | | [facility] | | | | | | [...] | + + + + + | [facility] [employer] | [address] | [place] [address] | | | SERVICES, CORE | [address] | | | + + + + + BY-ED-GYD-HB,POC RT (03/16/2017 12:22 AM PDT) + + [...] MARQUAM | [address] | [place] | | | R[facility]O POINT OF CARE | [address] | [address] | | | TESTS | | | [...] + + + | E[facility]OGIO [facility] | [address] | [place] | | | [facility]O POINT OF CARE | [address] | [address] | | | TESTS | | | [...] MARQUAM | [address] | [place] | | | [facility]O POINT OF CARE | [address] | [address] | | | TESTS | | | [...] EULOGIO RODGERS | [address] | [place] | | | R[facility]ARDO POINT OF [facility] | [address] | [address] | | | TESTS | | | | + + + + + X-RAY PORTABLE CHEST 1 VIEW (03/15/2017 9:44 PM PDT) + + | Specimen | + + | | + + + + + | Narrative | Performed At | + + + | EXAM: CO CHEST 1 VIEW HISTORY: Evaluate new endotracheal [...] | + + | Service Account, Arely Datacratic In Interface - 03/16/2017 8:27 AM PDT EXAM: CO CHEST 1 | | VIEW HISTORY: Evaluate [...] MARIA | [address] | [place] | | | JULIANN SILVA OF [facility] | [address] | [address] | | | TESTS | | | [...] MARIA | [address] | [place] | | | [facility] POINT [facility] CARE | [address] | [address] | | | TESTS | | | [...] [facility] | [address] | [place] [address] | | | SERVICES, CORE | PARK [...] [facility] | [address] | [place] [address] | | | SERVICES, CORE | PARK [...] [facility] | [address] | [place] [address] | | | SERVICES, [facility] | [address]ITH[address] | | | + [...] | Ambubag and suction available at bedside. [facility] Mac 4 used to | | [...] RODGERS | [address] | [place] | | | JULIANN SILVA OF [place] | [address] | [address] | | | TESTS | | | | + + + + + FK-BH-JXI-HB,POC RT (03/15/2017 7:39 PM PDT) + + [...] MARQU[facility] | [address] | [place] | | | JULIANN SILVA OF [facility] | [address] | [address] | | | TESTS | | | [...] R[facility] | [address] | [place] | | | R[facility]ARDO POINT OF CARE | [address] | [address] | | | TESTS | | | [...] MARQUAM | [address] | [place] | | | HILL, POINT OF CARE | [address] | [address] | | | TESTS | | | | + + + + + X-RAY PORTABLE CHEST 1 VIEW (03/15/2017 5:51 PM PDT) + + | Specimen | + + | | + + + + + | Narrative | Performed At | + + + | STUDY: CO CHEST 1 VIEW 03/15/17 17:40:08 COMPARISON: 03/15/17 at | [facility] | | 3:52 PM. HISTORY: Line [...] Interface - 03/15/2017 6:20 PM PDT STUDY: CO CHEST 1 | | VIEW 03/15/17 17:40:08COMPARISON: [...] | | + +---------+ + + | [facility] | | | | | [...] given by: Power of | | | top screw Patient identity confirmed per policy: Yes Team Pause: | | | Immediatly prior to the procedure a pause per protocol was called. A | | | pause verifies correct patient, procedure, equipment, technical support director | | | and site/side marked as [...] modified Seldinger technique (a | | | ecgeyyry-vtdo-qbq-gfniux-twmq-odhe-rfytlap-tzc-slbqxtzl) was used for | | | vessel [...] Name: Ron Mckeon MRN: | | | [id number] 03/15/2017 Time: 5:26 PM Diagnosis: shock At [...] Jose Ramon Alvarado | | | R2, [facility] Emergency Medicine Personal Pager: [phone] | | | | | + + + LACTATE (03/15/2017 4:49 PM PDT) + + + + + + | Component | Value | Ref Range | Performed | Pathologist | | | | | At | Signature | + + + + + + | LACTATE | 7.5 () | mmol/L | [facility] | | | | | | [...] | + + + + + | [facility] | [address] | [place] [address] | | | ИРИНА ANTOINE | TABITHA [...] (H) | 60 - 99 mg/dL | [facility] - | | | GLUCOSE, | [...] [facility] | [address] | [place], [place] | | | [place] POINT OF CARE | [address] | [address] | | | TESTS | | | [...] BLU[facility] | [address] | [place], [place] | | | JULIANN SILVA OF CARE | [facility] | [phone] | | | TESTS | | | | + + + + + X-RAY PORTABLE CHEST 1 VIEW (03/15/2017 4:03 PM PDT) + + | Specimen | + + | | + + + + + | Narrative | Performed At | + + + | EXAM: CO CHEST 1 VIEW 03/15/17 15:42:37 HISTORY: ECMO [...] Interface - 03/15/2017 6:18 PM PDT EXAM: CO CHEST 1 | | VIEW 03/15/17 15:42:37 [...] [facility] | [address] | [place], [place] | | | [facility] [facility]INT OF [facility] | [address] | [address] | | | TESTS | | | [...] [facility] | [address] | [place] | | | JULIANN SILVA OF CARE | [facility] | [address] | | | TESTS | | | [...] MARIA | [address] | [place], [place] | | | [facility] POINT OF CARE | [facility] | [phone] | | | TESTS | | | [...] [facility] | [address] | [place] [address] | | | SERVICES, CORE | TABITHA [...] | + + + + + | [facility] | [address] | [place] [address] | | | SERVICES, CORE | TABITHA [...] [facility] | [address] | [place] [address] | | | SERVICES, CORE | PARK [...] [facility] | [address] | [place] [address] | | | SERVICES, CORE | PARK [...] | | | LABORATORY | | | JORDANIAN | | | SERVICES, | | | [...] | + + + + + | [facility] | [address] | [place] [address] | | | SERVICES, CORE | TABITHA [...] Division of Cardiothoracic Surgery | | | [facility] - Mail Code [id number] | | | [place] [id number] | | + + + X-RAY PORTABLE CHEST 1 VIEW (03/15/2017 2:32 PM PDT) + + | Specimen | + + | | + + + + + | Narrative | Performed At | + + + | STUDY: CO CHEST 1 VIEW 03/15/17 14:21:08 COMPARISON: 03/15/17. | [facility] | | HISTORY: Introducer placement-June when [...] Note | + + | Service Account, [employer] In Interface - 03/15/2017 2:46 PM PDT STUDY: CO CHEST 1 | | VIEW 03/15/17 14:21:08COMPARISON: [...] + + + + | PRODUCT | [id number] | | [facility] | | | UNIT [...] + + + + | EXPIRATION | [id number] | | [facility] | | | DATE [...] + + + + | BLOOD | [id number] | | [facility] | | | PRODUCT [...] | + + + + + | [facility] | [address] | [place] [address] | | | SERVICES, | [address] [...] + + + + | PRODUCT | [id number] | | [facility] | | | UNIT [...] + + + + | EXPIRATION | [id number] | | [facility] | | | DATE [...] + + + + | BLOOD | [id number] | | [facility] | | | PRODUCT [...] | + + + + + | [facility] | [address] | [place] [address] | | | SERVICES, | [address] [...] + + + + | PRODUCT | [id number] | | [facility] | | | UNIT [...] + + + + | EXPIRATION | [id number] | | [facility] | | | DATE [...] + + + + | BLOOD | [id number] | | [facility] | | | PRODUCT [...] + + | [facility] | [address] [facility] [address] | [place] [address] | | | SERVICES, | [address] [...] + + + + | PRODUCT | [id number] | | [facility] | | | UNIT [...] + + + + | EXPIRATION | [id number] | | [facility] | | | DATE [...] + + + + | BLOOD | [id number] | | [facility] | | | PRODUCT [...] [facility] | [address] | [place] [address] | | | SERVICES, | [address] | | | | TRANSFUSION MEDICINE | | | | + + + + + FH-SF-BSQ-HB,POC RT (03/15/2017 1:23 PM PDT) + + [...] [facility] | [address] | [place] | | | JULIANN SILVA OF ALEXIS | [address] | [address] | | | TESTS | | | [...] [facility] | [address] | [place] | | | R[facility]O PO[facility] CARE | [address] | [address] | | | TESTS | | | [...] Performed At | + + + | [facility] | [facility] DEPT OF | | [facility] Adult Echocardiography | CARDIOLOGY | | Laboratory [address] [place] [address], | | | [place] [address] Pt Name: | | | RON Neena MCKEON Study Date/Time 03/15/2017 / 12:54:21 | | | [id number] Most recent | | | prior: -Acc #: [id number] No. previous | | | echos: 0DOB: 1955 61 years Heart Rate: | | | 145 bpmHeight: Blood | | | Pressure: 90/67 mm/HgWeight: 249.0 | | | lb Gender: | | | MBSA: 2.34 m2 Order | | | ID: [id number] Signal Worker: Vahid NOBLES | | | Referring Provider: [...] Report electronically signed by: | | | [id number] Yajaira Johnson MD (03/15/2017, 3:38:52 PM) Final | | | | | | | | | | | | Final | | + + + + + | Procedure Note | + + | Interface, Cardiology Results - 03/15/2017 3:38 PM [facility] [employer] | | [facility] Echocardiography Laboratory [address] [place] [address] | | [place], [place] [address] Pt Name: RON Chaudhary | | MIKE Study Date/Time 03/15/2017 / 12:54:21 PMMRN: [id number] Most | | recent prior: -Acc #: [id number] No. previous echos: 0DOB: 1955 61 | | years Heart Rate: 145 bpmHeight: Blood Pressure: 90/67 | | mm/HgWeight: 249.0 lb Gender: MBSA: 2.34 m2 | | Order ID: [id number] Signal Worker: Vahid Parmar RCSReferring Provider: | | Gaurav [...] values Report electronically signed by: | | [id number] Yajaira Johnson MD (03/15/2017, 3:38:52 PM) Final [...] | | | |Report electronically signed by: [id number] Yajaira Johnson MD (03/15/2017, 3:38:52 PM) | | | | | | | | Final | + + + + + + + | Performing | Address | City/State/Zipcode | Phone Number | | Organization | | | | + + + + + | [facility] DEPT OF | [address] | [place], [place] | | | CARDIOLOGY | [address] | [address] | | + + + + + X-RAY PORTABLE CHEST 1 VIEW (03/15/2017 12:46 PM PDT) + + | Specimen | + + | | + + + + + | Narrative | Performed At | + + + | STUDY: CO CHEST 1 VIEW 03/15/17 12:12:08 COMPARISON: None. [...] Interface - 03/15/2017 1:10 PM PDT STUDY: CO CHEST 1 | | VIEW 03/15/17 12:12:08COMPARISON: [...] DEPT OF | [address] | [place], [place] | | | CARDIOLOGY | [address] | [address] | | + + + + + [...] [facility] | [address] | [place] [address] | | | SERVICES, | [address] [...] [facility] | [address] | [place] [address] | | | SERVICES, | [address] [...] + + + + + | [facility] | [address] | [place] [address] | | | SERVICES, CORE | [address] [...] | + + + + + | [facility] | [address] | [place] [address] | | | ИРИНА ANTOINE | [address] [...] | + + + + + | [facility] | [address] | [place] [address] | | | SERVICES, | [address] [...] [facility] | [address] | [place] [address] | | | SERVICES, ИРИНА | [address] [...] [facility] | [address] | [place] [address] | | | SERVICES, CORE | [address] [...] [facility] | [address] | [place] [address] | | | SERVICES, CORE | [address] [...] | | | LABORATORY | | | JORDANIAN | | | SERVICES, | | | [...] | + + + + + | [facility] | [address] | [place] [address] | | | SERVICES, CORE | [address] | | | + + + + + YX-TC-XVO-HB,POC RT (03/15/2017 12:16 PM PDT) + + [...] | [facility] | [address] | [place] | | | [facility] | [facility] | [address] | | | TESTS | | | [...] | 03/15/17 at 1202, Until [facility] 04/02/17 | | | at 2030, [...] | | | | Until [facility] 04/02/17 at 203, | | | [...] | | | | Until [facility] 04/02/17 at 2030, severe | | [...] First dose on [facility] 04/02/17 at | | | 2100, Until Discontinued | | + +---+ | | | + +---+ documented in this encounter
--- OUTSIDE RECORDS SUMMARY | ~2019-02-08 | XMS | Encounter Summary ---
Demographics + + + | Address | [address] | | | [place] [address] | + + + | Home Phone | | + + + | Preferred Language | Unknown | + + + | Marital Status | | + + + | Caodaism Affiliation | NRP | + + + | Race | White | + + + | Ethnic Group | Not or | + + + Author + + + | Author | [facility] | + + + | Organization | [facility] | + + + | Address | Unknown | + + + | Phone | Unavailable | + + + Support + + + + + | Name | Relationship | Address | Phone | + + + + + | [place] Will | ECON | [address] | | | | | [place] [address] | | + + + + + Care Team Providers + +------+ + | Care Unit Manager Rn Name | Role | Phone | + +------+ + | Jamal Guerrero MD | PCP | | + +------+ + Encounter Details +--------+ + + + + | Date | Type | Department | Care Team | Description | +--------+ + + + + | 01/28/ | Document-Sc | UNKNOWN DEPARTMENT | Unknown . | | | 2011 | anned | [address] [facility] | | | | | | [facility] | | | | | | [place], [place] | | | | | | [address] | | | +--------+ + + + [...]
--- OUTSIDE RECORDS SUMMARY | ~2019-02-08 | XMS | Clinical Summary ---
Demographics + + + | Address | [address] [place] [address] [address] | | | [place] [address] | + + + | Home Phone | | + + + | Preferred Language | Unknown | + + + | Marital Status | | + + + | Samaritan Affiliation | Unknown | + + + | Race | Unknown | + + + | Ethnic Group | Unknown | + + + Author + + + | Author | [facility] | + + + | Organization | [facility] | + + + | Address | Unknown | + + + | Phone | Unavailable | + + + Support + + +---------+ + | Name | Relationship | Address | Phone | + + +---------+ + | [place] Mckeon | ECON | Unknown | | + + +---------+ + Care Team Providers + +------+ + | Care Laminate Floor Installer Name | Role | Phone | [...] + + | Father | | | [place] | | | | (Age | | [...] +------+-------+ + | MEDICAID | SAIMA | [id number] | | | [address] | | | N | | | | [place], [place] | | | [place] | | | | [address] | | | ROOFING TILE SORTER | | | | | + +--------+ [...] | Self | [birth year] | Home: | [address] | | | al/Fam | | [phone] [address] [place], | | | [place] | | | [address] | [place] [address] | + +--------+ +--------+ + +
--- OUTSIDE RECORDS SUMMARY | ~2019-02-08 | XMS | Encounter Summary ---
Demographics + + + | Address | [address] | | | [place] [address] | + + + | Home Phone | | + + + | Preferred Language | Unknown | + + + | Marital Status | | + + + | Scientology Affiliation | NRP | + + + | Race | White | + + + | Ethnic Group | Not or | + + + Author + + + | Author | [facility] | + + + | Organization | [facility] | + + + | Address | Unknown | + + + | Phone | Unavailable | + + + Support + + + + + | Name | Relationship | Address | Phone | + + + + + | [place] Will | ECON | [address] | | | | | [place] [address] | | + + + + + Care Team Providers + +------+ + | Care Farmworker Egg Producing Farm Name | Role | Phone | + [...] | | | | | [facility] | | | | | | [place], [place] | | | | | | [address] | | | +--------+ + + + [...]
--- OUTSIDE RECORDS SUMMARY | ~2019-02-08 | XMS | Encounter Summary ---
Demographics + + + | Address | [address] | | | [place] [address] | + + + | Home Phone [...] | [place] | | | | | [address] | | + + + + + Care Team Providers + +------+ + | Care Child Caregiver Name | Role | Phone | + [...] | | | involving | [address] [place] | | | | | [place] | [address] | [place] | | | | | coronary | [address] | [address] | | | | | artery of | Phone: | Phone: | | | | | [place] heart | [phone] | [phone] | | | | | without | Fax: | Fax: | | | | | angina | [phone] | [phone] | | | | | pectoris | | | + + + + + + + Encounter Details +--------+---------+ + + + | Date | Type | Department | Care Team | Description | +--------+---------+ + + + | 11/23/ | Office | [facility] | Rahullindacathy Lindaangusleo, | Acute on chronic | | 2019 | Visit | [facility] | MD [address] | systolic congestive | | | | REHABILITATION [address] | [address], | heart failure (HCC) | | | | [address] [place] | [place] [address] | (Primary Dx) | | | | [place] [address] | [phone] | | | | | [phone] | | | +--------+---------+ + + + [...] of this encounter Progress Jonah Coker-Cheri Kendrick, CALL CENTER ASSOCIATE - 11/23/2018 1000 PDTFormatting of this note might be diff erent from the original. [facility]ARD[facility]ATION [address] [facility] [address] Cardiac Rehab Date: 11/23/2018 Patient Information Patient [...] 03/08/ | Office | Nephrology | [facility], | | | 2018 | Visit | | ADARSH [address] | | | | | | [address] , [facility] | | | | | | [address] [place] [place] | | | | | | [id number] | | | | | | | | +--------+ + + + + | 03/24/ | Procedure | Cardiology | | | | 2018 | visit | | | | +--------+ + + + + | 03/24/ | Office | Cardiology | Jenny, | | | 2018 | Visit | | ADARSH [address] | | | | | | [place], | | | | | | [place] [address] | | | | | | [phone] | | | | | | | | +--------+ + + + + documented as of this encounter Visit Diagnoses + + | Diagnosis | + + | Acute on chronic systolic congestive heart failure (HCC) - Primary Acute on chronic | | systolic heart failure | + + documented in this encounter"
--- OUTSIDE RECORDS SUMMARY | ~2019-02-08 | XMS | Encounter Summary ---
Demographics + + + | Address | [address] | | | [place] [address] | + + + | Home Phone [...] | | | | | [place] [address] | | + + + + + Care Team Providers + +------+ + | Care Agricultural Service Worker Name | Role | Phone | [...] | | | | for Health | [place] | | | | | | and Healing, | Research | | | | | | 8th Floor | [place] | | | | | | [facility] [place] | [place], [place] | | | | | | [address] | [address] | | | | | | Phone: | Phone: | | | | | | [phone] | [phone] | | | | | | Fax: | Fax: | | | | | | [phone] | [phone] | +--------+--------+ + + + + Reason [...] | | | Degeneration | MEDICINE | [place], [place] | | | | | of cervical | [address] | [address] | | | | | | [address] | Phone: | | | | | intervertebr | [place], | [phone] | | | | | al disc | [place] [address] | Fax: | | | | | chronic | Phone: | [phone] | | | | | spine pain | [phone] | | | | | | cervical | Fax: | | | | | | stenosis | [phone] | | +--------+--------+ + + + + Encounter Details +--------+---------+ + + + | Date | Type | Department | Care Team | Description | +--------+---------+ + + + | 02/18/ | Office | [facility] at | Sapna Dutta MD | Neck pain; 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 | [facility] 8th Floor [address] | [address] | arthropathy, | | | | [address] | [place], [place] | cervical; Cervical | | | | Code: [facility] | [address] | spondylosis without | | | | for Health and | [phone] | myelopathy; | | | | Healing, 8th Floor | | Impingement syndrome | | | | [place], [place] | | of left shoulder; | | | | [address] | | Physical | | | | [phone] | | deconditioning; Post | | | [...] for ideas. You will greatly increase your [facility] es of success if you take medicine [...] a smoking cessation program, such as the [facility] on's [place] from Smoking program. Set a quit date. [...] in several forms, many of them available nugv-oro-njryoke: Nicotine patches Nicotine gum and lozenges Nicotine [...] Smoking: After Your Visit", log into your Insplorion account at [email or web address]/[employer]. You can enter Y522 in the [employer]" search box. Not on Insplorion? Review the Ins[employer]orion section of your After Visit Summary for directions on ho w to sign up. 4510-4918 [employer]. Care instructions adapted under license by [facility]. This care instruction is for use with your licensed healthcar e professional. If you have questions about a medical condition or this instruction, always ask your healthcare professional. [employer] disclaims any warranty or liabili ty for your use of this information. Content Version: 9.3.33093; Last Revised: March 26, 2011 Information about [...] your doctor have elected to try a prison solution, the nerve to the facet j [...] frequently to treat pain of longstanding duration. [facility] Dkjtazuyywdyde signed by Sapna Dutta MD at 02/19/2012 11:42 AM PDT documented in this encounter Progress Notes Sapna Dutta MD - 02/19/2012 10:50 AM PDT [facility] Office Visit Date: 02/19/2012 Mr. Mckeon was referred for Spine Center evaluation by Yesi Guerrero MD [facility] [address] [place] [address]. Reason for consult: Chief Complaint: Chief Complaint [...] offered surgery. 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 He lives with h is of 7 years, and they get along well. 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 He does not feel that he has had effective therapy for this problem. . He is here to "just get rid of the pain." Mr. Mckeon served in the [employer] from 0890-7568, including the first [place] war, d [employer] trucks. He was in combat. He does [...] by mouth two times daily. MULTIVITAMIN WITH MML-OM-IELOYXRW-GINKGO 400 MCG-300 MCG-120 MG TAB Take by [...] : 1955 Age: 56 Sex: M Acct: [id number] Loc: MRI Exam Date: 11/05/2011 Status: REG REF Radiology No: Unit No: [id number] EXAM# TYPE/EXAM RESULT CPT CODE [id number] MRI/CERVICAL SPINE W/O CONTRAST [id number] EXAM: MRI CERVICAL SPINE, Nov 05, 2011 01:04:00 PM. CLINICAL HISTORY: Chronic neck and left arm pain. COMPARISON: Cervical spine MRI from [facility] on 02/14/2010. TECHNIQUE: T1 and [...] consider this. Mr. Mckeon cannot come to [facility] for treatment on any kind of [...] branch denerva tion option SAPNA DUTTA MD [facility] documented in this encounter Plan [...] | 1955 Age: 56 Sex: M Acct: [id number] Loc: MRI Exam Date: | | | 11/05/2011 Status: REG REF Radiology No: Unit No: [id number] | | | EXAM# TYPE/EXAM RESULT CPT CODE [id number] MRI/CERVICAL SPINE W/O | | | CONTRAST [id number] EXAM: MRI CERVICAL SPINE, Nov 05, 2011 01:04:00 | | | PM. CLINICAL HISTORY: Chronic neck and left arm pain. | | | COMPARISON: Cervical spine MRI from [facility] on | | | 02/14/2010. [...]
--- OUTSIDE RECORDS SUMMARY | ~2019-02-08 | XMS | Encounter Summary ---
Demographics + + + | Address | [address] | | | [place] [address] | + + + | Home Phone [...] + + + | Author | [facility] | + + + | Organization | [facility] | + + + | Address | Unknown | + + + | Phone | Unavailable | + + + Support + + + + + | Name | Relationship | Address | Phone | + + + + + | [place] Will | ECON | [address] | | | | | [place] [address] | | + + + + + Care Team Providers + +------+ + | Care Medical Care Administrator Name | Role | Phone | [...] | | | | | | [place] [address] | | | +--------+--------+ + + + [...]
--- OUTSIDE RECORDS SUMMARY | ~2019-02-08 | XMS | Encounter Summary ---
Demographics + + + | Address | [address] | | | [place] [address] | + + + | Home Phone [...] [place] | | | | | [address] | | + + + + + Care Team Providers + +------+ + | Care Crab Fisher Name | Role | Phone | [...] NEPHROLOGY [address] | MD [address] | | | | | [address] | [address] [place] | | | | | [place], [place] | [place] [address] | | | | | [address] | [phone] | | | | | [phone] | | | +--------+ + + + [...] | 03/08/ | Office | Nephrology | [facility], | | | 2019 | Visit | | ADARSH [address] | | | | | | [address], [place] | | | | | | [address] [place] | | | | | | [address] | | | | | | | | +--------+ + + + + | 03/24/ | Procedure | Cardiology | | | | 2019 | visit | | | | +--------+ + + + + | 03/24/ | Office | Cardiology | Jenny, | | | 2018 | Visit | | ADARSH Santo [address] | | | | | | [place], | | | | | | [place] [address] | | | | | | [phone] | | | | | | | [...]
--- OUTSIDE RECORDS SUMMARY | ~2019-02-08 | XMS | Clinical Summary ---
Demographics + + + | Address | [address] | | | [place] [address] | + + + | Home Phone [...] [place] | | | | | [address] | | + + + + + Care Team Providers + +------+ + | Care Academic Manager Name | Role | Phone | [...] | | Activ | | (VITAMIN D-3) 90698 | a week. | | | | [...] | | nasal spray | nasal spray [place] 2 | | | | | | [...] e | | spray | aerosol spray [place] | | | | | | | [...] | 11/12/2017 | + + + | MOBILE MARKETING MANAGER-D (AICD) Medtronic 10/16/17 [facility] Wilner | 10/19/2017 | + + + + + | Overview: Formatting of this note might be different from the | | original. MODEL NAME MODEL# SERIAL# DATE IMPLANTED GENERATOR | | Medtronic [id number] 10/16/17 RV LEAD Medtronic [id number] | | [id number] 10/16/17 A LEAD Medtronic [id number] [id number] 10/16/17 | | Coronary Sinus LEAD Medtronic 4598 88 [id number] 10/16/17 | | Indication: ischemic cardiomyopathy with reduced EF 30-35% Last | | Assessment & Plan: Medtronic AICD Placed in 10/2017 at [facility]. | | A:-Patient ventricular paced 100% this morning. No arrhythmias on | | telemetry.P:-No acute therapy. Continue current therapy. | | | | Last Assessment & Plan: Medtronic AICD Placed in 10/2017 at [facility]. | | | |A: | |-Patient ventricular [...] + + + | Overview: S/P Medtronic MOBILE MARKETING MANAGER-D 10-16-17 Dr Darby, [facility] Scan | | 10/13/17 shows No [...] + + + | Acute anterior wall [place] | 04/03/2017 | + + + + [...] | | | | | (Primary Dx); MOBILE MARKETING MANAGER-D | | | | | | (AICD) Medtronic | | | | | | 10/16/17 [facility] Wilner; | | | | | | [...] [place] | | | | | | [address] | | | | | | | [...] | | | | | | [place] [address] | | | | | | [phone] | | | | | | | [...] Generi | Left: | TERUMO LORIN | [id number] | 12/05/ | [id number] | | [id number]: Qty: 1 | c | Alex | - TERU | [id number] | 2018 | / | | on 05/19/2018 by The, | | | | 20 | | /[id number] | | Khurram Isabel MD | | | | | | 371 | + +--------+--------+ +--------+--------+--------+ | Insurance Sales Professional-D MedtronicImplanted: | Implan | | MEDTRONIC - [...] N/A: | ISAACS | | 12/29/ | [id number] | | Eluting Coronary Stent System | | [place] | DIAGNOSTICS | | 2019 | 0- / | | Implanted: Qty: 1 on | | ry | - DAINA | | | | | 03/15/2017 by Monse Ross, | | | | | | /[id number] | | MD | | | | | | 61 | + +--------+--------+ +--------+--------+--------+ | Xience Alpine Everolimus | Stent | N/A: | ISAACS | | 11/03/ | [id number] | | Eluting Coronary Stent System | | Mackay | DIAGNOSTICS | | 2019 | 0- / | | Implanted: Qty: 1 on | | ry | - DAINA | | | | | 03/15/2017 by Monse Ross, | | | | | | /[id number] | | MD | | | | | | 41 | + +--------+--------+ +--------+--------+--------+ | Kit Perclose Proglide 6fr - | | Right: | ISAACS | [id number] | | 46398- | | [id number]: Qty: 1 | | Groin | VASCULAR - | [id number] | | 03 / / | | on 05/19/2018 by Missael, | | | ABVA | 89 | | | | Khurram Isabel MD | | | | | | | + +--------+--------+ +--------+--------+--------+ | Kit Perclose Proglide 6fr - | | Right: | ISAACS | [id number] | | 69110- | | [id number]: Qty: 1 | | Groin | VASCULAR - | [id number] | | 03 / / | | [...] | e | 23:59 PDT | Interrogation MOBILE MARKETING MANAGER-D | procedure are in the | [...] remote PDF scanned into | | | [facility] for remote interrogation results. Data [...] | [employer] | MODA | [id number] | | [phone] | | Medica | | MEDICAID HMO | HEALTH | | 018-Pr | 1 | | id | | | MDCD | | esent | | | | | | [place] | | | | | | + +--------+ +--------+ +---------+--------+ | [employer]ERANS ADMIN | VETERA | [id number] | 07/24/ | | | Indemn | | | NS | | 2016-P | | | ity | | | ADMIN | | resent | | | | | | [place] | | | | | | | | [place] | | | | | | + +--------+ +--------+ +---------+--------+ | VETERANS ADMIN | VETERA | [id number] | 07/24/ | | | Leanna | [...] [place] | | | 8 (Home) | [address] | + +--------+ +--------+ + + Advance Directives Patient has advance care planning documents, and code status on file. For more information, please contact:[facility] [place] [address] + + + + + | Code [...]
--- OUTSIDE RECORDS SUMMARY | ~2019-02-08 | XMS | Encounter Summary ---
Demographics + + + | Address | [address] | | | [place] [address] | + + + | Home Phone | | + + + | Preferred Language | Unknown | + + + | Marital Status | | + + + | Episcopal Affiliation | NRP | + + + [...] | | | | | [place] [address] | | + + + + + Care Team Providers + +------+ + | Care Director Of Product Marketing Name | Role | Phone | + [...] | | | 2017 | Event | [facility] | MD [address] [facility] | | | | | Admitting Desk | [facility] | | | | | Located on the | [place], [place] | | | | | [address] | [address] | | | | | [facility] | [phone] | | | | | [place], [place] | | | | | | [address] | | | +--------+ + + + [...] | | | | Starting [facility] 03/19/17 at 1201, | | PM PDT | | | | | Until [facility] 03/19/17 at 1244 | | | | | | + +-------+ +---------+---+---+ +---+---+ | | | +---+---+ + +---------+ + +--------+---+ | propofol (DIPRIVAN) injection | New Bag | 03/19/20 | 30 | 20.34 | | | INTRAPROCEDURE CONTINUOUS PRN, | | 17 9:26 | mcg/kg/m | mL/hr | | | Starting [facility] 03/19/17 at 0926, | | AM PDT | in | | | | Until [facility] 03/19/17 at 1244 | | | [...]
--- OUTSIDE RECORDS SUMMARY | ~2019-02-08 | XMS | Encounter Summary ---
Demographics + + + | Address | [address] | | | [place] [address] | + + + | Home Phone [...] [place] | | | | | [address] | | + + + + + Care Team Providers + +------+ + | Care Auger Press Operator Name | Role | Phone | [...] + | 11/18/ | Telephone | [facility] | Jenny, | Blood Pressure | | 2019 | | CARDIOLOGY [address] | [place], PLANT TECHNICIAN/CONTROL ROOM OPERATOR [address] | | | | | [place], | [place], | | | | | [place] [address] | [place] [address] | | | | | [phone] | [phone] | | | | | | | [...] [place] | | | | | | [address] | | | | | | | [...] | | | | | | [place] [address] | | | | | | [phone] | | | | | | | | +--------+ + + + + documented as of this encounter Visit Diagnoses Not on filedocumented in this encounter"
--- OUTSIDE RECORDS SUMMARY | ~2019-02-08 | XMS | Encounter Summary ---
Demographics + + + | Address | [address] | | | [place] [address] | + + + | Home Phone [...] | [place] | | | | | [address] | | + + + + + Care Team Providers + +------+ + | Care Community Outreach Coordinator Name | Role | Phone | [...] | | | involving | [address] | [address] [place] | | | | | [place] | [place] | [place] | | | | | coronary | [address] | [address] | | | | | artery of | Phone: | Phone: | | | | | [place] heart | [phone] | [phone] | | | | | without | Fax: | Fax: | | | | | angina | [phone] | [phone] | | | | | pectoris | | | + + + + + + + Encounter Details +--------+---------+ + + + | Date | Type | Department | Care Team | Description | +--------+---------+ + + + | 11/30/ | Office | [facility] | Carolina Randy, | Coronary artery | | 2019 | Visit | MED CTR CARDIAC | MD [address] | disease involving | | | | REHABILITATION [address] | [place], | [place] coronary | | | | [address] [place] | [place] [address] | artery of [place] | | | | [place] [address] | [phone] | heart without angina | | | | [phone] | | pectoris (Primary | | | [...] might be different from the orig [facility] CARDIAC REHABILITATION [address] [facility] [address] Cardiac Rehab Date: 11/30/2018 Patient Information Patient Name: Bob Will Date of : 1955 Age: 63 y.o. Encounter Diagnoses Code Name Primary? I25.10 Coronary artery disease involving [place] coronary artery of [place] heart without angina pectoris Yes Z98.61 Post [...] 03/08/ | Office | Nephrology | [facility], | | | 2018 | Visit | | ADARSH [address] | | | | | | [address] [facility] | | | | | | [address] [place] | | | | | | [id number] | | | | | | | | +--------+ + + + + | 03/24/ | Procedure | Cardiology | | | | 2019 | visit | | | | +--------+ + + + + | 03/24/ | Office | Cardiology | Jenny, | | | 2018 | Visit | | ADARSH Santo [address] | | | | | | [place], | | | | | | [place] [address] | | | | | | [phone] | | | | | | | [...]
--- OUTSIDE RECORDS SUMMARY | ~2019-02-08 | XMS | Encounter Summary ---
Demographics + + + | Address | [address] | | | [place] [address] | + + + | Home Phone [...] | [place] | | | | | [address] | | + + + + + Care Team Providers + +------+ + | Care Benzene Still Utility Operator Name | Role | Phone | [...] | | | involving | [address] | [address] | | | | | [place] | [place], [place] | [place], [place] | | | | | coronary | [address] | [address] | | | | | artery of | Phone: | Phone: | | | | | [place] heart | [phone] | [phone] | | | | | without | Fax: | Fax: | | | | | angina | [phone] | [phone] | | | | | pectoris | | | + + + + + + + Encounter Details +--------+---------+ + + + | Date | Type | Department | Care Team | Description | +--------+---------+ + + + | 11/18/ | Office | [facility] | Randy Figueroa, | Coronary artery | | 2019 | Visit | MED CTR CARDIAC | [address] | disease involving | | | | REHABILITATION [address] | [place], | [place] coronary | | | | [address] [place] | [place] [address] | artery of [place] | | | | [place] [address] | [phone] | heart without angina | | | | [phone] | | pectoris (Primary | | | [...] might be different from the orig in[place]oc[facility]. [facility] CARDIAC REHABILITATION [address] [facility] [address] Cardiac Rehab Date: 11/18/2018 Patient Information Patient Name: Bob Will Date of : 1955 Age: 63 y.o. Encounter Diagnoses Code Name Primary? I25.10 Coronary artery disease involving [place] coronary artery of [place] heart without angina pectoris Yes Z98.61 Post [...] 03/08/ | Office | Nephrology | [facility] | | | [facility] | Visit | | ADARSH [address] | | | | | | [address] [facility] | | | | | | [address] [place] | | | | | | [address] | | | | | | | [...] | | | | | | [place] [address] | | | | | | [phone] | | | | | | | | +--------+ + + + + documented as of this encounter Visit Diagnoses + + | Diagnosis | + + | Coronary artery disease involving [place] coronary artery of [place] heart without | | angina pectoris - Primary | + + | Post PTCA Postsurgical percutaneous transluminal coronary angioplasty status | + + documented in this encounter"
--- OUTSIDE RECORDS SUMMARY | ~2019-02-08 | XMS | Encounter Summary ---
Demographics + + + | Address | [address] | | | [place] [address] | + + + | Home Phone | | + + + | Preferred Language | Unknown | + + + | Marital Status | | + + + | Mormon Affiliation | NRP | + + + [...] | | | | | [place] [address] | | + + + + + Care Team Providers + +------+ + | Care Foam Gun Operator Name | Role | Phone | [...] | Pass | Services at [facility] | | | | | | [address] | | | | | | [facility] | | | | | | Mailcode: [id number] | | | | | | [email or web address] | | | | | | [place], [place] | | | | | | [address] | | | | | | [phone] | | | +--------+ + + + [...]
--- OUTSIDE RECORDS SUMMARY | ~2019-02-08 | XMS | Clinical Summary ---
Demographics + + + | Address | [address] [place] [address] [address] | | | [place] [address] | + + + | Home Phone [...] | | | | | [place] [address] | | + + + + + Care Team Providers + +------+ + | Care Communications Systems Engineer Name | Role | Phone | + +------+ + | Chato Matson MD | PP | | + +------+ + Source Comments EULOGIO is fully live on both [facility] Ambulatory and [facility] InPatient.[facility] Allergies No Known Allergies Medications [...] resynchronization therapy | 10/17/2017 | | defibrillator (SUIT MAKER-D) | | + + + | [...] stayExtubated 03/22, started on | | [place] [id number] infusion begun 03/22 for daily goal -1 [...] | | | INC | | | [id number] | | Tejal Pettit MD | | | | | | X / | | | | | | | | /[address] | | | | | | | | [address] | + +------+--------+ +--------+--------+--------+ + + | [...] CROSS | | 16-Pre | [address] | [address] | | | | [place] | | sent | | [place], | | | | L | | | | [place] [address] | | + +--------+ +--------+ + +--------+ | MEDICAID [place] | OHP | xxxxxxxx | 03/07/20 | [phone] | [address] | Medica | | | PLUS | | 17-Pre | 6 | [address] | id | | | OPEN | | sent | | [place], [place] | | | | CARD | | | | [address] | | + +--------+ +--------+ + +--------+ + +--------+ +--------+ + + | Guarantor Name | Accoun | Relation to | Date | Phone | Billing Address | | | t Type | Patient | of | | | | | | | | | | + +--------+ +--------+ + + | Suman,Bob J | Person | Self | [birth year] | | [address] | | | al/Negro | | 1956 | [phone] | [address] [place] | | | [place] | | | 8 (Home) | [address] | + +--------+ +--------+ + + Advance [...]
--- OUTSIDE RECORDS SUMMARY | ~2019-02-08 | XMS | Encounter Summary ---
Demographics + + + | Address | [address] | | | [place] [address] | + + + | Home Phone [...] | [place] | | | | | [address] | | + + + + + Care Team Providers + +------+ + | Care Sign Wirer Name | Role | Phone | + [...] | | | involving | [address] | [address] [place] | | | | | [place] | [place] | [place] | | | | | coronary | [address] | [address] | | | | | artery of | Phone: | Phone: | | | | | [place] heart | [phone] | [phone] | | | | | without | Fax: | Fax: | | | | | angina | [phone] | [phone] | | | | | pectoris | | | + + + + + + + Encounter Details +--------+---------+ + + + | Date | Type | Department | Care Team | Description | +--------+---------+ + + + | 11/25/ | Office | [facility] | Carolina Randy, | Coronary artery | | 2019 | Visit | MED CTR CARDIAC | MD [address] | disease involving | | | | REHABILITATION [address] | [place], | [place] coronary | | | | [address] | [place] [address] | artery of [place] | | | | [place] [address] | [phone] | heart without angina | | | | [phone] | | pectoris (Primary | | | [...] of this encounter Progress Jonah Coker-Cheri Kendrick, DEEP SUBMERGENCE VEHICLE OPERATOR - 11/25/2018 1000 PDTFormatting of this note might be diff erent from the original. [facility] CARDIAC REHABILITATION [address] [facility] [address] Cardiac Rehab Date: 11/25/2018 Patient Information Patient [...] | 03/08/ | Office | Nephrology | [facility], | | | 2018 | Visit | | ADARSH [address] | | | | | | [address] , [facility] | | | | | | [address] [place] | | | | | | [id number] | | | | | | | | +--------+ + + + + | 03/24/ | Procedure | Cardiology | | | | 2018 | visit | | | | +--------+ + + + + | 03/24/ | Office | Cardiology | Jenny, | | | 2018 | Visit | | ADARSH Santo [address] | | | | | | [place], | | | | | | [place] [address] | | | | | | [phone] | | | | | | | | +--------+ + + + + documented as of this encounter Visit Diagnoses + + | Diagnosis | + + | Coronary artery disease involving [place] coronary artery of [place] heart without | | angina pectoris - Primary | + + | Post PTCA Postsurgical percutaneous transluminal coronary angioplasty status | + + documented in this encounter"
--- OUTSIDE RECORDS SUMMARY | ~2019-02-08 | XMS | Encounter Summary ---
Demographics + + + | Address | [address] | | | [place] [address] | + + + | Home Phone [...] [place] | | | | | [address] | | + + + + + Care Team Providers + +------+ + | Care Scallop Binder Name | Role | Phone | + [...] | | | involving | [address] | [address] [place] | | | | | [place] | [place] | [place] | | | | | coronary | [address] | [address] | | | | | artery of | Phone: | Phone: | | | | | [place] heart | [phone] | [phone] | | | | | without | Fax: | Fax: | | | | | angina | [phone] | [phone] | | | | | pectoris | | | + + + + + + + Encounter Details +--------+---------+ + + + | Date | Type | Department | Care Team | Description | +--------+---------+ + + + | 12/09/ | Office | [facility] | Randy Figueroa, | Coronary artery | | 2019 | Visit | MED CTR CARDIAC | MD [address] | disease involving | | | | REHABILITATION [address] | [place], | [place] coronary | | | | [address] [place] | [place] [address] | artery of [place] | | | | [place] [address] | [phone] | heart without angina | | | | [phone] | | pectoris (Primary | | | [...] might be different from the orig [facility] CARDIAC REHABILITATION [address] [facility] [address] Cardiac Rehab Discharge Date: 12/09/2018 Patient Information Patient Name: Bob Will Date of : 1955 Age: 63 y.o. Referring Provider: Randy Figueroa MD Encounter Diagnoses Code Name Primary? I25.10 Coronary artery disease involving [place] coronary artery of [place] heart without angina pectoris Yes Z98.61 Post PTCA Cardiac Rehab Phase II Leon atment Plan Bob Will (Bob) is a 62 y.o. 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 He has recently increased his metoprolol dose and is on Entresto. He arrives in electric 4Less heelchair and has been inactive. Fall Ri [...] control. Also began walking with his around [employer] 3 days a week along with chasing [...] Healthy Dietary Education Date: 08/03/18 -Referral to Log Skidder: Date: -DVD: Healthy Eating For Life Date: [...] exercise until stable. Date: Range: -Referral to Soldering Inspector Date: Education Points listed below- Date [...] Unforeseen circumstances makes the constant trip from [place] to not be a viable option a [...] [place] | | | | | | [address] | | | | | | | [...] | | | | | | [place] [address] | | | | | | [phone] | | | | | | | | +--------+ + + + + documented as of this encounter Visit Diagnoses + + | Diagnosis | + + | Coronary artery disease involving [place] coronary artery of [place] heart without | | angina pectoris - Primary | + + | Post PTCA Postsurgical percutaneous transluminal coronary angioplasty status | + + documented in this encounter
--- OUTSIDE RECORDS SUMMARY | ~2019-02-08 | XMS | Encounter Summary ---
Demographics + + + | Address | [address] | | | [place] [address] | + + + | Home Phone [...] + | [place] | ECON | [place] | | | | | [address] | | + + + + + Care Team Providers + +------+ + | Care Water System Operator Name | Role | Phone [...] | | CARDIOLOGY [address] | [place], OPERATIONS LEADER [address] | | | | | [place], | [place], | | | | | [place] [address] | [place] [address] | | | | | [phone] | [phone] | | | | | | | [...] | | | | | | [address] [place] | | | | | | [address] [place] | | | | | | [address] | | | | | | | [...] | | | | | | [place] [address] | | | | | | [phone] | | | | | | | | +--------+ + + + + documented as of this encounter Visit Diagnoses Not on filedocumented in this encounter"
--- OUTSIDE RECORDS SUMMARY | ~2019-02-08 | XMS | Encounter Summary ---
Demographics + + + | Address | [address] | | | [place] [address] | + + + | Home Phone [...] | [place] | | | | | [address] | | + + + + + Care Team Providers + +------+ + | Care Lab Engineer Name | Role | Phone | [...] | | | involving | [address] | [place] | | | | | [place] | [place] | [place] | | | | | coronary | [address] | [address] | | | | | artery of | Phone: | Phone: | | | | | [place] heart | [phone] | [phone] | | | | | without | Fax: | Fax: | | | | | angina | [phone] | [phone] | | | | | pectoris | | | + + + + + + + Encounter Details +--------+---------+ + + + | Date | Type | Department | Care Team | Description | +--------+---------+ + + + | 11/25/ | Office | [facility] | Carolina Randy, | Coronary artery | | 2019 | Visit | MED CTR CARDIAC | MD [address] | disease involving | | | | REHABILITATION [address] | [place], | [place] coronary | | | | [place] | [place] [address] | artery of [place] | | | | [place] [address] | [phone] | heart without angina | | | | [phone] | | pectoris (Primary | | | [...] of this encounter Progress Jonah Coker-Cheri Kendrick, GRINDER SET UP OPERATOR THREAD - 11/25/2018 1000 PDTFormatting of this note might be diff erent from the original. [facility] CARDIAC REHABILITATION [address] [facility] [address] Cardiac Rehab Date: 11/25/2018 Patient Information Patient [...] Name: Bob Will/: 1955/ ly signed by Cehri Harvey RRT at 11/25/2018 12:48 PDTdocumented in this encou nter Plan of Treatment +--------+ + + + + | Date | Type | Specialty | Care Team | Description | +--------+ + + + + | 03/08/ | Office | Nephrology | [facility], | | | 2018 | Visit | | ADARSH [address] | | | | | | [address] , [facility] | | | | | | [address] [place] | | | | | | [id number] | | | | | | | | +--------+ + + + + | 03/24/ | Procedure | Cardiology | | | | 2018 | visit | | | | +--------+ + + + + | 03/24/ | Office | Cardiology | Jenny, | | | 2018 | Visit | | ADARSH Santo [address] | | | | | | [place], | | | | | | [place] [address] | | | | | | [phone] | | | | | | | | +--------+ + + + + documented as of this encounter Visit Diagnoses + + | Diagnosis | + + | Coronary artery disease involving [place] coronary artery of [place] heart without | | angina pectoris - Primary | + + | Post PTCA Postsurgical percutaneous transluminal coronary angioplasty status | + + documented in this encounter"
--- OUTSIDE RECORDS SUMMARY | ~2019-02-08 | XMS | Clinical Summary ---
Demographics + + + | Address | [address] [place] [address] [address] | | | [place] [address] | + + + | Home Phone [...] | | | | | [place] [address] | | + + + + + Care Team Providers + +------+ + | Care Assistant Warehouse Manager Name | Role | Phone | + +------+ + | Chato Matson MD | PP | | + +------+ + Source Comments EULOGIO is fully live on both [facility] Ambulatory and [facility] InPatient.[facility] Allergies No Known Allergies Medications + + [...] resynchronization therapy | 10/17/2017 | | defibrillator (TELEPHONE STATION INSTALLER-D) | | + + + | Influenza, [...] edema. 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 | | -secretions improving, cough strong [...] stayExtubated 03/22, started on | | [place] U3Madte infusion begun 03/22 for daily goal -1 [...] during cath | | lab procedure at [facility]. Was shocked 17 times | | [...] | | 2018 | Q | | Mcihael Soni MD | | | | | [...] | | | INC | | | [id number] | | Tejal Pettit MD | | | | | | X / | | | | | | | | /[id number] | | | | | | | | [address] | + +------+--------+ +--------+--------+--------+ + + | [...] CROSS | | 16-Pre | 8 | [address] | | | | [place] | | sent | | [place], | | | | L | | | | [place] [address] | | + +--------+ +--------+ + +--------+ | MEDICAID [place] | OHP | xxxxxxxx | 03/07/20 | [phone] | [address] | Medica | | | PLUS | | 17-Pre | 6 | [id number] | id | | | OPEN | | sent | | [place], [place] | | | | CARD | | | | [id number] | | + +--------+ +--------+ + +--------+ + +--------+ +--------+ + + | Guarantor Name | Accoun | Relation to | Date | Phone | Billing Address | | | t Type | Patient | of | | | | | | | | | | + +--------+ +--------+ + + | Suman,Bob J | Person | Self | [birth year] | [address] | | | al/Negro | | 1956 | [phone] | [address] [place] | | | [place] | | | 8 (Home) | [address] | + +--------+ +--------+ + + Advance [...]
--- OUTSIDE RECORDS SUMMARY | ~2019-02-08 | XMS | Encounter Summary ---
Demographics + + + | Address | [address] | | | [place] [address] | + + + | Home Phone [...] | | | | | [place] [address] | | + + + + + Care Team Providers + +------+ + | Care Sand Filler Name | Role | Phone | [...] | | | | [facility] | | | | | | [place], [place] | | | | | | [address] | | | +--------+ + + + [...]
--- OUTSIDE RECORDS SUMMARY | ~2019-02-08 | XMS | Clinical Summary ---
Demographics + + + | Address | [address] | | | [place] [address] | + + + | Home Phone [...] [place] | | | | | [address] | | + + + + + Care Team Providers + +------+ + | Care Rfid Analyst Name | Role | Phone | [...] | | Activ | | (VITAMIN D-3) [id number] | a week. | | | | [...] | | nasal spray | nasal spray [place] 2 | | | | | | [...] e | | spray | aerosol spray [place] | | | | | | | [...] | 11/12/2017 | + + + | CREATIVE ART DIRECTOR-D (AICD) Medtronic 10/16/17 [facility] [place] | 10/19/2017 | + + + + + | Overview: Formatting of this note might be different from the | | original. MODEL NAME MODEL# SERIAL# DATE IMPLANTED GENERATOR | | Medtronic [id number] 10/16/17 RV LEAD Medtronic [id number] | | [id number] 10/16/17 A LEAD Medtronic [id number] 10/16/17 | | Coronary Sinus LEAD Medtronic [id number] 10/16/17 | | Indication: ischemic cardiomyopathy with reduced EF 30-35% Last | | Assessment & Plan: Medtronic AICD Placed in 10/2017 at [facility]. | | A:-Patient ventricular paced 100% this morning. No arrhythmias on | | telemetry.P:-No acute therapy. Continue current therapy. | | | | Last Assessment & Plan: Medtronic AICD Placed in 10/2017 at [facility]. | | | |A: | |-Patient ventricular [...] + + + | Overview: S/P Medtronic CREATIVE ART DIRECTOR-D 10-16-17 Dr Darby, [facility] [...] disease involving [place] coronary artery of | 04/06/2017 | | [place] heart without angina pectoris | | + [...] + + + | Acute anterior wall HI | 04/03/2017 | + + + + [...] involving | | | | | | [place] coronary | | | | | | artery of [place] | | | | | | heart without angina | | | | | | pectoris (Primary | | | | | | Dx); Post PTCA | +--------+ + + + + | 12/07/ | Office | | Randy Figueroa, | Coronary artery | | 2018 | Visit | | MD | disease involving | | | | | | [place] coronary | | | | | | artery of [place] | | | | | | heart [...] | | | | | (Primary Dx); CREATIVE ART DIRECTOR-D | | | | | | (AICD) Medtronic | | | | | | 10/16/17 [facility] [place]; | | | | | | Ischemic | | | | | | cardiomyopathy | +--------+ + + + + | 12/02/ | Office | | Randy Figueroa, | Coronary artery | | 2018 | Visit | | MD | disease involving | | | | | | [place] coronary | | | | | | artery of [place] | | | | | | heart [...] involving | | | | | | [place] coronary | | | | | | artery of [place] | | | | | | heart [...] involving | | | | | | [place] coronary | | | | | | artery of [place] | | | | | | heart [...] involving | | | | | | [place] coronary | | | | | | artery of [place] | | | | | | heart [...] involving | | | | | | [place] coronary | | | | | | artery of [place] | | | | | | heart [...] [place] | | | | | | [address] | | | | | | | [...] | | | | | | [place] [address] | | | | | | [phone] | | | | | | | [...] Generi | Left: | TERUMO LORIN | [id number] | 12/05/ | [id number] | | [id number]: Qty: 1 | c | Alex | - TERU | [id number] | 2018 | / | | on 05/19/2018 by The, | | | | 20 | | /[id number] | | Khurram Isabel MD | | | | | | 371 | + +--------+--------+ +--------+--------+--------+ | Secretary Book Keeper-D MedtronicImplanted: | Implan | | MEDTRONIC - [...] N/A: | ISAACS | | 12/29/ | [id number] | | Eluting Coronary Stent System | | [place] | DIAGNOSTICS | | 2019 | 0- / | | Implanted: Qty: 1 on | | ry | - DAINA | | | | | 03/15/2017 by Monse Ross, | | | | | | /[id number] | | MD | | | | | | 61 | + +--------+--------+ +--------+--------+--------+ | Xience Alpine Everolimus | Stent | N/A: | ISAACS | | 11/03/ | [id number] | | Eluting Coronary Stent System | | [place] | DIAGNOSTICS | | 2019 | 0- / | | Implanted: Qty: 1 on | | ry | - DAINA | | | | | 03/15/2017 by Monse Ross, | | | | | | /[id number] | | MD | | | | | | 41 | + +--------+--------+ +--------+--------+--------+ | Kit Perclose Proglide 6fr - | | Right: | ISAACS | [id number] | | 64610- | | [id number]: Qty: 1 | | Groin | VASCULAR - | [id number] | | 03 / / | | on 05/19/2018 by Missael, | | | ABVA | 89 | | | | Khurram Isabel MD | | | | | | | + +--------+--------+ +--------+--------+--------+ | Kit Perclose Proglide 6fr - | | Right: | ISAACS | [id number] | | 76683- | | [id number]: Qty: 1 | | Groin | VASCULAR - | [id number] | | 03 / / | | [...] | e | 23:59 PDT | Interrogation CREATIVE ART DIRECTOR-D | procedure are in the | | REMOTE | | | ([facility]) Medtronic | results section. | | [...] | [employer] | MODA | [id number] | | [phone] | | Medica | | MEDICAID HMO | HEALTH | | 018-Pr | 1 | | id | | | MDCD | | esent | | | | | | [place] | | | | | | + +--------+ +--------+ +---------+--------+ | V[employer]ERANS ADMIN | VETERA | [id number] | 07/24/ | | | Indemn | | | NS | | 2016-P | | | ity | | | ADMIN | | resent | | | | | | [place] | | | | | | | | [place] | | | | | | + +--------+ +--------+ +---------+--------+ | [employer]ER[employer] ADMIN | VETERA | [id number] | 07/24/ | | | Leanna | [...] taiwo | | | 8 (Home) | [address] | + +--------+ +--------+ + + Advance Directives Patient has advance care planning documents, and code status on file. For more information, please contact:[facility] [place] [address] + + + + + | Code [...]
--- OUTSIDE RECORDS SUMMARY | ~2019-02-08 | XMS | Encounter Summary ---
Demographics + + + | Address | [address] | | | [place] [address] | + + + | Home Phone [...] | | | | | [place] [address] | | + + + + + Care Team Providers + +------+ + | Care Loading Dock Helper Name | Role | Phone | + +------+ + | Chato Matson MD | PCP | | + +------+ + Encounter Details +--------+ + + + + | Date | Type | Department | Care Team | Description | +--------+ + + + + | 03/31/ | Document-Sc | Health Information | Other, Faculty | | | 2017 | anned | Services [address] | [phone] | | | | | [address] | | | | | | Road Mailcode: | | | | | | [address] [place] [address] | | | | | | [facility] | | | | | | [place], [place] | | | | | | [address] | | | | | | [phone] | | | +--------+ + + + [...]
--- OUTSIDE RECORDS SUMMARY | ~2019-02-08 | XMS | Encounter Summary ---
Demographics + + + | Address | [address] | | | [place] [address] | + + + | Home Phone [...] [place] | | | | | [address] | | + + + + + Care Team Providers + +------+ + | Care Baby Registry Sales Consultant Name | Role | Phone [...] | | | involving | [address] [place] | | | | | [place] | [place] | [place] | | | | | coronary | [address] | [address] | | | | | artery of | Phone: | Phone: | | | | | [place] heart | [phone] | [phone] | | | | | without | Fax: | Fax: | | | | | angina | [phone] | [phone] | | | | | pectoris | | | + + + + + + + Encounter Details +--------+---------+ + + + | Date | Type | Department | Care Team | Description | +--------+---------+ + + + | 12/09/ | Office | [facility] | Randy Figueroa, | Coronary artery | | 2019 | Visit | [facility] CTR CARD[facility]AC | MD [address] | disease involving | | | | REHABILITATION [address] [place], | [place] coronary | | | | [address] [place] | [place] [address] | artery of [place] | | | | [place] [address] | [phone] | heart without angina | | | | [phone] | | pectoris (Primary | | | [...] might be different from the orig [facility] CARDIAC REHABILITATION [address] [facility] [address] Cardiac Rehab Discharge Date: 12/09/2018 Patient Information Patient Name: Bob Will Date of : 1955 Age: 63 y.o. Referring Provider: Randy Figueroa MD Encounter Diagnoses Code Name Primary? I25.10 Coronary artery disease involving [place] coronary artery of [place] heart without angina pectoris Yes Z98.61 Post PTCA Cardiac Rehab Phase II Leon atment Plan Bob Will (Bob) is a 62 y.o. 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 He has recently increased his metoprolol dose and is on Entresto. He arrives in electric PartSimple heelchair and has been inactive. Fall Ri [...] control. Also began walking with his around [employer] 3 days a week along with chasing [...] Healthy Dietary Education Date: 08/03/18 -Referral to Astrobiologist: Date: -DVD: Healthy Eating For Life Date: [...] exercise until stable. Date: Range: -Referral to Addressograph Operator Date: Education Points listed below- Date [...] Unforeseen circumstances makes the constant trip from [place] to not be a viable option a [...] [place] | | | | | | [address] | | | | | | | | +--------+ + + + + | 03/24/ | Procedure | Cardiology | | | | 2018 | visit | | | | +--------+ + + + + | 03/24/ | Office | Cardiology | Jenny, | | | 2018 | Visit | | [facility] [address] | | | | | | [place], | | | | | | [place] [address] | | | | | | [phone] | | | | | | | | +--------+ + + + + documented as of this encounter Visit Diagnoses + + | Diagnosis | + + | Coronary artery disease involving [place] coronary artery of [place] heart without | | angina pectoris - Primary | + + | Post PTCA Postsurgical percutaneous transluminal coronary angioplasty status | + + documented in this encounter
--- OUTSIDE RECORDS SUMMARY | ~2019-02-08 | XMS | Encounter Summary ---
Demographics + + + | Address | [address] | | | [place] [address] | + + + | Home Phone [...] | [place] | | | | | [address] | | + + + + + Care Team Providers + +------+ + | Care Health Care Law Specialist Name | Role | Phone [...] [place] | | | | | [place] | [place] | [place] | | | | | coronary | [address] | [address] | | | | | artery of | Phone: | Phone: | | | | | [place] heart | [phone] | [phone] | | | | | without | Fax: | Fax: | | | | | angina | [phone] | [phone] | | | | | pectoris | | | + + + + + + + Encounter Details +--------+---------+ + + + | Date | Type | Department | Care Team | Description | +--------+---------+ + + + | 12/07/ | Office | [facility] | Randy Figueroa, | Coronary artery | | 2019 | Visit | MED CTR CARDIAC | MD [address] | disease involving | | | | REHABILITATION [address], | [place] coronary | | | | [address] [place] [place] | [place] [address] | artery of [place] | | | | [place] [address] | [phone] | heart without angina | | | | [phone] | | pectoris (Primary | | | [...] note might be different from the orig [facility] CARDIAC REHABILITATION [address] [facility] [address] Cardiac Rehab Date: 12/07/2018 Patient Information Patient Name: Bob Will Date of : 1955 Age: 63 y.o. Encounter Diagnoses Code Name Primary? I25.10 Coronary artery disease involving [place] coronary artery of [place] heart without angina pectoris Yes Z98.61 Post [...] | Office | Nephrology | [facility], | | | 2018 | Visit | [...] [address] | | | | | | [place], | | | | | | [place] [address] | | | | | | [phone] | | | | | | | | +--------+ + + + + documented as of this encounter Visit Diagnoses + + | Diagnosis | + + | Coronary artery disease involving [place] coronary artery of [place] heart without | | angina pectoris - Primary | + + | Post PTCA Postsurgical percutaneous transluminal coronary angioplasty status | + + documented in this encounter"
--- OUTSIDE RECORDS SUMMARY | ~2019-02-08 | XMS | Encounter Summary ---
Demographics + + + | Address | [address] | | | [place] [address] | + + + | Home Phone [...] | | | | | [place] [address] | | + + + + + Care Team Providers + +------+ + | Care Oracle Agile Plm Consultant Name | Role | Phone | [...] | 2018 | Encounter | Services at [facility] | | | | | | [address] | | | | | | [facility] | | | | | | Mailcode: [address] | | | | | | [facility] | | | | | | [place], [place] | | | | | | [address] | | | | | | [phone] | | | +--------+ + + + [...] | + + + | Report ====== Hot Oiler: Rodríguez Fortune ([id number]), shubham | [facility] | | richy Kitchen Mechanic: shubham lockhart Fellow: shubham lockhart | RADIOLOGY | | Library Technician: shubham lockhart Viewer: shubham lockhart Report Date: | CARDIAC IMAGING | | Oct 2017, 09:22:25 PST Patient ------- Patient: RON MCKEON | | | Acc #: [id number] | | | Ethnicity: N Status: Final [...] | | | Image Quality: Good Scanner Chicle Grinder Feeder: [email or web address] Scanner | | | Model: Lessonwriter Scanner Serial Number: [id number] Scanner Software | | | Platform: [id number] Staff: Rodríguez Fortune Modality: MR | | | Indication Name: routine Protocol Name: CMR W Flows WO Contrast | | | Findings -------- Non-cardiac findings were reviewed by Dr. Curtis. | | | This exam was terminated prematurely and is lmiited to billet assembler images. | | | There are bilateral [...] - 10/16/2017 9:22 AM PST | | Report======Hot Oiler: Rodríguez Fortune ([id number]), shubham Rodriguezalyst: shubham | | Zackeryow: shubham Beckician: shubham Beckwithwer: shubham | | Judiort Date: 16 Oct 2017, 09:22:25 PSTPatient-------Patient: RON MCKEON | | JMedical Record Number: [id number] ID: [id number] #: [id number]: NStatus: | | Final ReportReport Number: [id number]: MaleBirthdate: 1955 (61 yrs)Study Date: 05 | | Oct 2017Study Description: CMR with Flows with ContrastReferring Physician: RAJIV | | HEITNERBlood Pressure: /Heart rate:Height (cm): 0Weight (kg): 89BMI (kg/m ): 0BSA | | (m ): 0 (Mosteller Formula)Image Quality: Kizziang Chicle Grinder Feeder: [employer] | | Kromatid Model: [employer] Serial Number: [id number] Software Platform: | | [id number]: Rodríguez FortuneModality: MRIndication Name: routineProtocol Name: | | CMR W Flows WO ContrastFindings--------Non-cardiac findings were reviewed by | | Ever.This exam was terminated prematurely and is lmiited to billet assembler images.There are | | bilateral pleural [...] Formula) | |Image Quality: Good | |Scanner Chicle Grinder Feeder: [email or web address] | |Scanner Model: Lessonwriter | |Scanner Serial Number: [id number] | |Scanner Software Platform: 5.3.15.3.1.0 | |Staff: Rodríguez Fortune | |Modality: MR | |Indication Name: routine | |Protocol Name: CMR W Flows WO Contrast | |Findings | |-------- | |Non-cardiac findings were reviewed by Dr. Curtis. | |This exam was terminated prematurely and is lmiited to billet assembler images. | |There are bilateral pleural [...]
--- OUTSIDE RECORDS SUMMARY | ~2019-02-08 | XMS | Encounter Summary ---
Demographics + + + | Address | [address] | | | [place] [address] | + + + | Home Phone [...] | | | | | [place] [address] | | + + + + + Care Team Providers + +------+ + | Care Plant Attendant Or Assistant Operator Name | Role | Phone | + +------+ + | Chato Matson MD | PCP | | + +------+ + Encounter Details +--------+ + + + + | Date | Type | Department | Care Team | Description | +--------+ + + + + | 03/19/ | Procedure | 6A Intra Op [facility] | | | | 2016 | Pass | [facility] | | | | | | Admitting Desk | | | | | | Located on the 9th | | | | | | floor [address] [facility] | | | | | | [facility] | | | | | | [place], [place] | | | | | | [address] | | | +--------+ + + + [...]
--- OUTSIDE RECORDS SUMMARY | ~2019-02-08 | XMS | Encounter Summary ---
Demographics + + + | Address | [address] | | | [place] [address] | + + + | Home Phone | | + + + | Preferred Language | Unknown | + + + | Marital Status | | + + + | Mormon Affiliation | NRP | + + + | Race | White | + + + | Ethnic Group | Not or | + + + Author + + + | Author | [facility] | + + + | Organization | [facility] | + + + | Address | Unknown | + + + | Phone | Unavailable | + + + Support + + + + + | Name | Relationship | Address | Phone | + + + + + | Venice Mckeon | ECON | [address] | | | | | [place] [address] | | + + + + + Care Team Providers + +------+ + | Care Warehouse Associate Driver Name | Role | Phone | [...] | | | | (HCC) | [place], [place] | for Health | | | | | Stenosis of | [address] | and Healing | | | | | coronary | Phone: | [place], [place] | | | | | artery | [phone] | [address] | | | | | stent, | Fax: | Phone: | | | | | initial | [phone] | [phone] | | | | | encounter | | Fax: | | | | | Procedures | | [phone] | | | | | CONSULT TO [...] + + | 10/10/ | Hospital | [address] | Khurram Bedoya | | | 2018 - | Encounter | [address] | MD [address] | | | | | [address] [place] [address] | [address] | | | 10/17/ | | [place] | [place] | | | 2018 | | [address] | [address] | | | | | [phone] | [phone] | | | | | | | [...] Referring Physician & Institution: Other Dictation Primary/Outpatient Picking Table Worker: Dr Jamal Guerrero MD Inpatient Attending Physician: Khurram Bedoya MD Author/Discharging Provider: LALA SCHOFIELD PA-C Admission Date: 10/10/2017 Discharge Date: 10/17/2017 Active Hospital Problems 1) *NSTEMI (non-ST elevated myocardial infarction) (HCC) 2) Coronary artery disease 3) Stenosis of coronary artery stent 4) Ischemic cardiomyopathy 5) Chronic systolic congestive heart failure (HCC) 7) Encounter for insertion of cardiac resynchronization therapy defibrillator (TUBE WINDER HAND-D) 8) Paroxysmal atrial flutter (HCC) 9) Influenza, pneumonia 10) Prediabetes 11) Tobacco use Procedures 10/15/17: Successful percutaneous coronary intervention to the ostial left circumflex. One 3.0 x 18 mm Resolute Blaine drug-eluting stent. Successful percutaneous coronary transluminal angiopla sty of the distal left main extending into the left anterior descending coronary artery with final kissing balloon inflation with a 3.5 mm noncompliant and a 2.5 mm compliant balloon. 10/16/17: 1) EP study with VT induction 2) TUBE WINDER HAND-D implantation Reason For Admission: Consideration of complex PCI vs CABG for in-stent restenosis of LCx and LM/LAD stents Hospital Course: Please see H&P for hospital course at [place] prior to transfer to [facility]. Ron Mckeon is a 61 year [...] treatment who was admitted in transfer from [place] on 10/11 for consideration of PCI vs [...] support--had one 3.0 x [address] ug-eluting stent placed in ostial L [...] 10/16. VT was induced, therefor e a TUBE WINDER HAND-D was implanted. He is discharging home in good condition with follow up in 1 week w ith his Picking Table Worker. The following problems were addressed this hospitalization: [...] uenza and underwent a coronary angiogram at [place] which revealed in stent re-stenosis of both LM into LAD and LCx stents, mild disease of RCA. Transferred to [facility] for further onel luation. CTS was consulted for consideration of CABG vs complex PCI. Due to nonviable myocardium archie wn on cardiac PET and resting NM perfusion study, PCI was chosen over CABG. On 10/15 he underw ent angiography/PCI with impella support--had one 3.0 x 18 mm Resolute Blaine drug-eluting chery nt placed in ostial L [...] II, Stage C. Etiology ischemic. TTE at [facility] showed EF 30-35%, mildly reduced RV [...] the past --ICD: placed by EP 10/16, TUBE WINDER HAND-D -- will need 1 week f/u for wound check, then 1 month device check with EP -- f/u with outpatient environmental associate 2-4 weeks # Paroxysmal Aflutter Noted Aflutter with RVR at admission in [place]; treated with amiodarone infusion. He w as transitioned to oral amiodarone and maintained normal rhythm. Given that the aflutter occ urred in setting of severe sepsis, will not continue amiodarone or warfarin. If he has recur rent arrhythmia, this will be noted on TUBE WINDER HAND-D and could consider anticoagulation at that time . However, he requires DAPT and has a possible history of recent GIB, so triple therapy shou ld be avoided if not necessary --rate control: metoprolol as above --anticoagulation: holding warfarin for now given DAPT and h/o GI B. Discuss further with outpatient environmental associate. May consider holding anticoagulation unless he demonstrates recurrent arrhythmia # Influenza type A - resolved # Community acquired pneumonia # Severe sepsis with shock, resolved Pt presented to [place] 10/03 found to be Flu Apositive with [...] sepsis management , fluid resuscitation. EGD at [place] on 10/05 showed gastritis, duodenitis, linear ulcerations [...] first post-hospitalization visit: 1. Wound check from TUBE WINDER HAND-D placement 2. Consider restarting lisinopril if BPs improve and Cr is stable 3. Instructed pt to restart metformin on 08/18 but reevaluate based on Cr Schedule the following appointment(s) when you get home KULWINDER Stevens. Go on 10/19/2017. Why: at 1:15pm for heart failure follow up, to re-check labwork, and to have your wound ch ecked Contact information HEART [address] [address] KULWINDER Stevens. Go on 11/11/2017. Why: at 9:30am for cardiology follow up and to have your device checked Contact information HEART [address] [address] Medication List START taking these medications Childrens [...] on 10/19. Indications: type 2 diabetes [facility] metoprolol succinate 25 mg Tb24 Commonly [...] circumflex. One 3.0 x 18 mm Resolute Blaine drug-eluting stent. Successful percutaneous coronary transluminal angiop [...] ths. You should be cleared by your environmental associate prior to returning to driving. If you [...] How to Contact us: Cardiology Division Office [phone] Cardiology Patient Phone Line EDUIN [address] Dr[address] Dr., Dr., PA-C Connie Barber, NP Karen Paladino, RN Margaret Kleist, RN Evenings or weekends: Ask for on-call environmental associate Drug Eluting Stent 1. Please take Plavix (clopidogrel) everyday which helps to keep the stent open. You need t o take it every day for one year and do not stop unless you are told to by your environmental associate . 2. Take an aspirin 81 mg once daily indefinitely. 3. You were referred for cardiac rehab and should start now that you have had a stent place d. 4. Follow up with your environmental associate within 2-4 weeks. 5. No elective surgeries [...] Lala Schofield PA-C Instructor of Cardiovascular Medicine [place] [facility] [place] [facility] I spent 36 minutes in coordination of care and yjgn-kb-hqyh with the patient and/or their s urrogate in which the problems above were discussed Associated attestation - Khurram Bedoya MD - 10/17/2017 3:22 PM PSTCardiology Anthony souza I have seen and examined Mr. Mckeon and discussed the patient's management with the [facility] practitioner. I reviewed the practitioner's note above and agree with the documented f indings and plan of care. KHURRAM BEDOYA MD Director of the [facility] Hypertrophic Cardiomyopathy It Analyst of Echocardiography Territory Account Managerprincipal software architect Division of Cardiovascular Medicine documented in this encounter Discharge Instructions AttachmentsThe following attachments cannot be sent through Care Everywhere.WOUND CHECK ([place])ICD (IMPLANTABLE CARDIOVERTER-DEFIBRILLATOR): POST-OP ([place])PAIN POST-SURGERY: ACUT E ([place])OPIOIDS: SAFE USE ([place])OPIOIDS: STORAGE AND DISPOSAL: GENERAL INFO ([place])d ocumented in this encounter Medications at Time [...] Information: Implant date: 10/16/17 BiV-ICD pulse generator: Radio Electronics Officer: [employer]or Model number: [id number] Serial number: [id number] RA lead: Radio Electronics Officer: Medtronic Model number: [id number] Serial number: [id number] RV lead: Radio Electronics Officer: Medtronic Model number: [id number] Serial number: [id number] CS lead: Radio Electronics Officer: [employer]onic Model number: [id number] Serial number: [id number] ICD PROGRAMMING: Bradycardia Parameters: Mode: DDD Lower rate limit: 50 Upper rate limit: 130 Output (A): 3.5 V at 0.4 ms Sensitivity (A): 0.3 mV Output (RV): 3.5 V at 0.4 ms Sensitivity (RV): 0.3 mV Output (CS): 2.0 V at 0.4ms Tachycardia Parameters: VT zone: 177-200 Therapies: Monitor VF zone: >200 bpm Therapies: 35 J x 6 PACING PERCENTAGE: AP: <0.1% WILD LIFE MANAGER: 98.3% EPISODES SINCE IMPLANT: none. TODAY'S TESTING [...] and Device check in one month at [facility] device clinic. I have reque sted [...] MD Electrophysiology Fellow Division of Cardiovascular Medicine [facility] Pager [phone] signed by Lauro Jorgensen MD at 10/18/2017 [...] follow up. Lauro Jorgensen M.D. Director, Electrophysiology Detective Investigatorchild and adolescent therapist [place] [address] Amarilis Castle MD - 10/17/2017 10:53 AM [...] hs. You should be cleared by your environmental associate prior to returning to driving. ? If [...] through the full body scanner at the [facility], but only after 6 weeks post [...] How to Contact us: Cardiology Division Office [phone] Cardiology Patient Phone Line EDUIN [address] [...] 1) EP study with VT induction 2) TUBE WINDER HAND-D Indication for the procedure: Ischemic cardiomyopathy with [...] MD Electrophysiology Fellow Division of Cardiovascular Medicine [facility] Pager [phone] ala Schofield PA-C - 10/16/2017 2:07 PM PST IP Cardiology Progress Note Date: 10/16/2017 Hospital Day: 6 Attending Picking Table Worker: Khurram Bedoya MD Provider: LALA SCHOFIELD PA-C Primary Care Provider: Chato Matson MD Outpatient Picking Table Worker: Dr Jamal Guerrero MD ID:Ron Mckeon is [...] treatment who was admitted in transfer from [place] on 10/11 for consideration of PCI vs [...] cannot appreciate murmur and sounds regular. J WILD LIFE MANAGER not above clavicle at 90 degrees Gastrointestinal: [...] found for: FREET4, TSH, TPOAB, THYROGLOB, THYROGLOBAB, [id number] Lab Results Component Value Date A1C 5.9 [...] circumflex. One 3.0 x 18 mm Resolute Blaine drug-eluting stent. Successful percutaneous coronary transluminal angiopla [...] uenza and underwent a coronary angiogram at [place] which revealed in stent re-stenosis of both LM into LAD and LCx stents, mild disease of RCA. Transferred to [facility] for further onel luation. CTS was [...] II-III, Stage C. Etiology ischemic. TTE at [facility] showed EF 30-35%, mildly reduced RV [...] check with EP -- f/u with outpatient environmental associate 2-4 weeks # Paroxysmal Aflutter Noted Aflutter with RVR at admission in [place]; treated with amiodarone infusion. Now maintaining SR on oral amio. CHADS-VASC 3, HAS-BLED 3. Was previously on heparin infusion fo r NSTEMI but this has been stopped and AC was not started in anticipation of PCI. --rate control: carvedilol as above --rhythm control: continue amiodarone 200 mg daily for now, to be reassessed b y outpatient environmental associate --anticoagulation: holding warfarin for now given DAPT and h/o GIB. Discuss fu rther with outpatient environmental associate. May consider holding anticoagulation unless he demonstra janeth recurrent arrhythmia # Influenza type A - resolved # Community acquired pneumonia # Severe sepsis with shock, resolved Pt presented to [place] 10/03 found to be Flu A positive [...] sepsis management , fluid resuscitation. EGD at [place] on 10/05 showed gastritis, duodenitis, linear ulcerations [...] patient was interviewed and examined by attending environmental associate, Dr. Khurram Bedoya MD , who is in agreement with above described findings, assessment and plan. LALA SCHOFIELD PA-C Cardiovascular Medicine [facility] Pager [phone] I spent 36 minutes in coordination of care and hnel-fy-jxqd with the patient and/or their surrogate in [...] current post-cath car e. JOHN AMAYA MD [address] [place] [address] Ruth Ann Aguilar PA-C - [...] circ and LAD. EPS v-stim with possible TUBE WINDER HAND-D tomorrow (QRS today is 152 atypical LB BB). See yesterdays attestation Sophie Darby MD Cardiovascular Medicine - Electrophysiology [place] [facility] [place] at [facility] Arya Low MD - 10/15/2017 1:05 PM PSTCARDIOLOGY PRELIMINARY PROCEDURE NOTE Primary Care Provider: Chato Matson MD Referring Provider: Other Dictation Claim Review Medical Director Staff: Tejal Modi M.D. Procedure(s): 1. Coronary angiography 2. Percutaneous coronary intervention 3. Left heart catheterization 4. Impella placement and removal 5. Moderate conscious sedation Indications: Unstable angina, planned LM intervention Access: 14-Trinidadian RFA 6-Trinidadian RFV 7-Trinidadian LFA Post Procedure Access:No evidence of significant [...] Note Date: 10/15/2017 Hospital Day: 5 Attending Picking Table Worker: Khurram Bedoya MD Provider: LALA SCHOFIELD PA-C Primary Care Provider: Chato Matson MD Outpatient Picking Table Worker: Dr Jamal Guerrero MD ID:Ron Mckeon is [...] treatment who was admitted in transfer from [place] on 10/11 for consideration of PCI vs [...] cannot appreciate murmur and sounds regular. J WILD LIFE MANAGER not above clavicle at 90 degrees Gastrointestinal: [...] found for: FREET4, TSH, TPOAB, THYROGLOB, THYROGLOBAB, [id number] Lab Results Component Value Date A1C 5.9 [...] uenza and underwent a coronary angiogram at [place] which revealed in stent re-stenosis of both LM into LAD and LCx stents, mild disease of RCA. Transferred to [facility] for further onel luation. CTS was consulted for consideration of CABG vs complex PCI. Due to nonviable myocardium archie wn on cardiac PET and resting NM perfusion study, he will proceed with PCI tomorrow with Imp tania support. -- to label sewer today for PCI with impella support --ASA [...] II-III, Stage C. Etiology ischemic. TTE at [facility] showed EF 30-35%, mildly reduced RV [...] Noted Aflutter with RVR at admission in [place]; treated with amiodarone infusion. Now maintaining SR [...] sepsis with shock, resolved Pt presented to [place] 10/03 found to be Flu A positive [...] sepsis management , fluid resuscitation. EGD at [place] on 10/05 showed gastritis, duodenitis, linear ulcerations [...] patient was interviewed and examined by attending environmental associate, Dr. Khurram Bedoya MD , who is in agreement with above described findings, assessment and plan. LALA SCHOFIELD PA-C Cardiovascular Medicine [facility] Pager [phone] I spent 38 minutes in coordination of care and fuzl-mv-lngh with the patient and/or their surrogate in which the following was discussed: plan for PCI with impella support today, hea rt failure, anticoagulation for aflutter, discharge planning Associated attestation - Khurram Bedoya MD - 10/15/2017 1:15 PM PSTCardiology Attendi ng I have seen and examined Mr. Mckeon and [facility] the [facility]. I reviewed the practitioner's note above and agree with the documented f indings and plan of care. KHURRAM BEDOYA MD Director of the [facility] Hypertrophic Cardiomyopathy It Analyst of Echocardiography Territory Account Managerprincipal software architect Division of Cardiovascular Medicine Ruth Ann Carvajal [...] thickening is segmentally abnormal. 10/03/17: TTE @ [facility] Summary The number of aortic [...] remain. CARDIAC CATHETERIZATION: DATE OF PROCEDURE:10/03/[address] [facility] CORONARY ANGIOGRAPHY DOMINANCE: Right LEFT [...] about Vf/VT risk in both short and nursing home. Given NSVT and EF 30-35%, we will therefore proceed to an EP study with implantation o f an ICD if she has inducible VT. Given atypical LBBB QRS 147 and current functional status 3 (prior 1-2 by report) and concern for lack of EF recovery, we would plan for TUBE WINDER HAND with His- bundle lead if needed. Sophie Darby MD Cardiovascular Medicine - Electrophysiology [place] [facility] [place] at [facility] Lala Schofield PA-C - 10/14/2017 11:58 AM PSTFormatting of this note might be different f rom the original. IP Cardiology Progress Note Date: 10/14/2017 Hospital Day: 4 Attending Picking Table Worker: Khurram Bedoya MD Provider: LALA SCHOFIELD PA-C Primary Care Provider: Chato Matson MD Outpatient Picking Table Worker: Dr Jamal Guerrero MD ID:Ron Mckeon is [...] treatment who was admitted in transfer from [place] on 10/11 for consideration of PCI vs [...] Very t hankful of care provided at [facility] Current Inpatient Medications: acetaminophen (TYLENOL) tablet [...] found for: FREET4, TSH, TPOAB, THYROGLOB, THYROGLOBAB, [id number] Lab Results Component Value Date A1C 5.9 [...] uenza and underwent a coronary angiogram at [place] which revealed in stent re-stenosis of both LM into LAD and LCx stents, mild disease of RCA. Transferred to [facility] for further onel luation. CTS was [...] II-III, Stage C. Etiology ischemic. TTE at [facility] showed EF 30-35%, mildly reduced RV [...] Noted Aflutter with RVR at admission in [place]; treated with amiodarone infusion. Now maintaining SR [...] sepsis with shock, resolved Pt presented to [place] 10/03 found to be Flu A positive [...] sepsis management , fluid resuscitation. EGD at [place] on 10/05 showed gastritis, duodenitis, linear ulcerations [...] patient was interviewed and examined by attending environmental associate, Dr. Khurram Bedoya MD , who is in agreement with above described findings, assessment and plan. LALA SCHOFIELD PA-C Cardiovascular Medicine [facility] Pager [phone] I spent 42 minutes in coordination of care and mpuf-ro-xlrn with the patient and/or their s urrogate in which the following was discussed: results of nuc med and PET scan studies indic ating no viable myocardium and thus will plan for complex PCI tomorrow Associated attestation - Khurram Bedoya MD - 10/14/2017 9:29 PM PSTCardiology Attendi libby I have seen and examined Mr. Mckeon and discussed the [facility]. I reviewed the practitioner's note above and agree with the documented f indings and plan of care. KHURRAM BEDOYA MD Director of the [facility] Hypertrophic Cardiomyopathy It Analyst of Echocardiography Territory Account Managerprincipal software architect Division of Cardiovascular Medicine Ashleigh Alvarez ACNP - 10/13/2017 8:33 AM PSTFormatting of this note might be diff erent from the original. Cardiology Inpatient Progress Note Date: 10/13/2017 Hospital Day: 3 Primary Care Physician: Chato Matson MD Outpatient Picking Table Worker: Dr Jamal Guerrero MD Attending Picking Table Worker: Khurram Bedoya MD Provider: KULWINDER Grace ID: [...] who was admitted in transfe r from [place] on 10/11 for consideration of PCI vs [...] found for: FREET4, TSH, TPOAB, THYROGLOB, THYROGLOBAB, [id number] Lab Results Component Value Date A1C 5.9 [...] exam dated, 03/30/2017, the LVEF is similar. [facility] CXR 10/11/17: FINDINGS: The increased lung [...] flow to distal LAD 10/03/17 Echo at [place]: The number of aortic valve leaflets cannot [...] stents # NSTEMI Pt was admitted to [place] 10/03 with hypoxemic respiratory failure, severe sepsis and s hock thought to be due to influenza type A as below. Noted to have new LBBB, NSTEMI with pea k trop 26. Underwent coronary angiogram at [place] 10/04 which revealed in stent re-steno sis of both LM into LAD and LCx stents, mild disease of RCA. Transferred to [facility] for further evaluation. TTE showed LV [...] for PCI (likely with Dr Modi with [facility] a support) which would require repeat [...] II-III, Stage C. Etiology ischemic. TTE at [facility] showed EF 30-35%, mildly reduced RV function, mild dilation of ascending aorta. LVEDP 14 mm hg during catheterization 10/04 ( in setting of hypotension). Pt was diuresed at [place], appears euvolemic on exam. Pt wa s [...] Noted Aflutter with RVR at admission in [place], treated with amiodarone infusion, bertha alonzo SR [...] admitted with acute dyspnea, respiratory failure to [place] 10/03 found to be Flu A p [...] sepsis management , fluid resuscitation. EGD at [place] on 10/05 showed gastritis, duodenitis, linear ulcerations [...] patient was interviewed and examined by attending environmental associate, Dr. Khurram Bedoya MD , who is in agreement with above described findings, assessment and plan. KULWINDER Grace Instructor of Medicine [place] [facility] [place] Pager [phone] I spent 33 minutes in coordination of care and gleh-rp-izix with the patient and/or their s urrogate in which management of CAD, imaging plan and consultation with radiology, revascula rization treatment was discussed Associated attestation - Khurram Bedoya MD - 10/13/2017 2:48 PM PSTCardiology Attendi I have seen and examined Mr. Mckeon and discussed the patient's management with the [place] [facility] practitioner. I reviewed the practitioner's note above and agree with the documented f indings and plan of care. KHURRAM BEDOYA MD Director of the [facility] Hypertrophic Cardiomyopathy It Analyst of Echocardiography [place] Account Managerprincipal software architect Division of Cardiovascular Medicine Ashleigh Alvarez ACNP - 10/12/2017 8:02 AM PSTFormatting of this note might be diff erent from the original. Cardiology Inpatient Progress Note Date: 10/12/2017 Hospital Day: 2 Primary Care Physician: Chato Matson MD Outpatient Picking Table Worker: Dr Jamal Guerrero MD Attending Picking Table Worker: Khurram Bedoya MD Provider: KULWINDER Grace ID: [...] who was admitted in transfe r from [place] on 10/11 for consideration of PCI vs [...] found for: FREET4, TSH, TPOAB, THYROGLOB, THYROGLOBAB, [id number] Lab Results Component Value Date A1C 5.6 [...] exam dated, 03/30/2017, the LVEF is similar. [facility] CXR 10/11/17: FINDINGS: The increased lung [...] flow to distal LAD 10/03/17 Echo at [place]: The number of aortic valve leaflets cannot [...] stents # NSTEMI Pt was admitted to [place] 10/03 with hypoxemic respiratory failure, severe sepsis and s hock thought to be due to influenza type A as below. Noted to have new LBBB, NSTEMI with pea k trop 26. Underwent coronary angiogram at [place] 10/04 which revealed in stent re-steno sis of both LM into LAD and LCx stents, mild disease of RCA. Transferred to [facility] for further evaluation. TTE shows LV [...] II-III, Stage C. Etiology ischemic. TTE at [facility] showed EF 30-35%, mildly reduced RV function, mild dilation of ascending aorta. LVEDP 14 mm hg during catheterization 10/04 ( in setting of hypotension). He was diuresed at [place], appears euvolemic on exam today. Pt was [...] Aflutter with RVR prior to admission in [place], treated with amioda rima infusion, maintaining SR [...] admitted with acute dyspnea, respiratory failure to [place] [facility] 10/03 found to be Flu pos itive. [...] sepsis management , fluid resuscitation. EGD at [place] on 10/05 showed gastritis, duodenitis, linear ulcerations [...] patient was interviewed and examined by attending environmental associate, Dr. Khurram Bedoya MD , who is in agreement with above described findings, assessment and plan. Ashleigh Alvarez, [facility] Instructor of Medicine [place] [facility] [place] Pager [phone] I spent 51 minutes in coordination of care and hkag-qf-pijv with the patient and/or their s urrogate in which management of CAD, imaging plan and consultation with radiology, pneumonia treatment was discussed Associated attestation - Khurram Bedoya MD - 10/12/2017 3:00 PM PSTCardiology Attendi I have seen and examined Mr. Mckeon and discussed the patient's management with the [facility]. I reviewed the practitioner's note above and agree with the documented f indings and plan of care. KHURRAM BEDOYA MD Director of the [facility] Hypertrophic Cardiomyopathy It Analyst of Echocardiography Territory Account Managerprincipal software architect Division of Cardiovascular Medicine Cristi Sutton - 10/11/2017 12:15 PM PSTTransthoracic echocardiogram completed. Final report to follow. documented in this enc ounter Plan of Treatment + +---------+--------+ + + | Name | Type | Priori | Associated Diagnoses | Order Schedule | | | | ty | | | + +---------+--------+ + + | CORRESPONDENT INT | Imaging | Routin | | Tomorrow for 1 | | CORONARY ANGIOGRAM | | e | | Occurrences starting | | | | | | 10/15/2017 until | | | | | | 10/15/2017 | + +---------+--------+ + + | CORRESPONDENT EP ICD | Imaging | Routin | [...] POC | | PST | infarction) ([facility]) | results section. | + +--------+ + + + | CAPILLARY BLOOD | Routin | 10/17/2017 | Non-ST elevation | Results for this | | GLUCOSE (NO CHG), | e | 7:38 AM | (NSTEMI) myocardial | procedure are in the | | POC | | PST | infarction ([facility]) | results section. | + [...] | | | PST | infarction) ([facility]) | results section. | + [...] POC | | PST | infarction ([facility]) | results section. | + [...] | + +--------+ + + + | CORRESPONDENT | Routin | 10/15/2017 | | Results [...] POC | | PST | infarction ([facility]) | results section. | + [...] RODGERS | [address] | [place], [place] | | | RICARDO POINT OF CARE | [address] | [address] | | | TESTS | | | [...] MARQUAM | [address] | [place], [place] | | | CHRISTIE SILVA [facility] | [address] | [address] | | | TESTS | | | [...] Note | + + | Service Account, INgrooves In Interface - 10/17/2017 7:51 AM PST [...] [facility] | [address] | [place] [address] | | | SERVICES, CORE | PARK [...] | | | LABORATORY | | | AFGHAN | | | SERVICES, | | | [...] + + + + | [facility] [employer]) | [address] | [place] [address] | | | SERVICES, ИРИНА | JT [...] + | STUDY: AK CHEST 1 VIEW HISTORY: Evaluated lead placement. | [facility] | | COMPARISON: STUDY: AK CHEST 1 VIEW FINDINGS: A new | [...] Interface - 10/17/2017 7:51 AM PST STUDY: AK CHEST 1 | | VIEWHISTORY: Evaluated lead placement.COMPARISON: STUDY: AK CHEST 1 VIEWFINDINGS: A | | new [...] He | | | is candidate for TUBE WINDER HAND-D since he as class 2 baseline heart failure | | | and currently class 3 heart failure with LBBB 152 msec. | | | PROCEDURE ATTENDING: Sophie Darby MD | | | FELLOW: Amarilis Castle MD | | | PROCEDURAL DATA: Procedure: New implant Implanted | | | generator tax assessor: Medtronic Implanted leads tax assessor: | | | Medtronic Radha-procedure Anticoag: None Presenting rhythm: | | | NSR Existing device under advisory? No Pacemaker | | | dependent: No Method of sedation: Conscious sedation - Anesth | | | provider Response to sedation: Normal Fluoroscopy time (see | | | log): 45-47 minutes MEDICATIONS: See anesthesia log | | | and label sewer log INTAKE AND OUTPUT: 1000 ml / [...] INFORMATION: BiV-ICD pulse generator: | | | Radio Electronics Officer: Medtronic Model number: [id number] Serial | | | number: [id number] RA lead: Radio Electronics Officer: Medtronic | | | Model number: [id number] Serial number: [id number] RV lead: | | | Radio Electronics Officer: Medtronic Model number: [id number] Serial | | | number: [id number] CS lead: Radio Electronics Officer: Medtronic | | | Model number: [id number] Serial number: [id number] MEASURED | | | PARAMETERS: RA lead: [...] Division of Cardiovascular Medicine | | | [facility] Pager [phone] Pursuant to | | | Federal Medicare requirements, I certify that I, Sophie Darby MD, | | | was present for the entire procedure, performed all critical | | | elements, and participated directly in the generation of this | | | report. Sophie Darby MD Cardiovascular Medicine - | | | Electrophysiology [place] [facility] [place] at [facility] | | + + + PROCEDURE [...] See | | | anesthesia log and label sewer log FLUIDS: In: 300 ml/ Out: 0 [...] HV interval (ms): 75 | | | AK interval (ms): 180 QRS duration (ms): 130 [...] Division | | | of Cardiovascular Medicine [facility] | | | Pager [phone] Pursuant to Federal Medicare requirements, I certify | | | that I, Sophie Darby MD, was present for the entire procedure, | | | performed all critical elements, and participated directly in the | | | generation of this report. Sophie Darby MD Cardiovascular | | | Medicine - Electrophysiology [place] [facility] [place] at [facility] | | + + + VBG-FULL ABL, POC (10/16/2017 3:55 PM PST) + + + + + + | Component | Value | Ref Range | Performed | Pathologist | | | | | At | Signature | + + + + + + | PH VENOUS, | 7.32 (L) | 7.35 - 7.45 | [facility] - | | | POC | [...] + + + | EULOGIO RODGERS | [address] | [place], [place] | | | JULIANN SILVA OF [place] | [address] | [address] | | | TESTS | | | [...] | EUOLGIO RODGERS | [address] | [place], [place] | | | RICARDO POINT OF CARE | [address] | [address] | | | TESTS | | | [...] [facility] | [address] | [place] [address] | | | SERVICES, CORE | PARK [...] | | | LABORATORY | | | AFGHAN | | | SERVICES, | | | [...] | + + + + + | [facility] | [address] | [place] [address] | | | ИРИНА ANTOINE | JT [...] [facility] | [address] | [place], [place] | | | JULIANN SILVA OF CARE | [address] | [address] | | | TESTS | | | [...] DEPT OF | [address] | [place], [place] | | | CARDIOLOGY | [address] | [address] | | + + + + + CARDIAC CATH (10/15/2017 2:11 PM PST) + + | Procedure Note | + + | Tejal Modi MD - 10/15/2017 2:11 PM PST DATE OF PROCEDURE:October 15, | | 2018PERFORMING PHYSICIAN:Tejal Modi [facility] ATTENDING:Mike Bray MDTheramy was no | | [...] 110 mL.FLUOROSCOPY TIME:17.8 minutes.FLUOROSCOPY | | DAP:7406.0 [id number]:1. Left ventricular pressure 91/23 mmHg.2. Aortic | | pressure 93/72 mmHg, mean of 80 mmHg. 3. Heart rate 71 beats per minute.ACCESS:1. | | 14-Trinidadian Impella sheath in the right femoral artery.2. 7-Trinidadian sheath in the left | | femoral artery.3. 6-Trinidadian sheath in the right femoral vein.ESTIMATED BLOOD [...] | micropuncture technique and ultrasound guidance, a 5-Trinidadian sheath was inserted in the | | right femoral artery and a 6-Trinidadian sheath was inserted in the right femoral vein. Two | | Perclose devices were deployed in the preclosure method and then the 5-Trinidadian sheath was | | exchanged over an Amplatz stiff wire for the 14-Trinidadian Impella sheath. A 5-Trinidadian | | angled pigtail catheter was then [...] technique and ultrasound guidance and placed a 7-Trinidadian sheath. A 7-Trinidadian XB 3.5 guide | | catheter was [...] and a 3.0 x 18 mm Resolute Blaine drug-eluting stent was advanced over the | [...] and pulled out of the body. The 14-Trinidadian sheath was | | then removed and [...] with one 3.0 x 18 mm Resolute Blaine drug-eluting stent. Successful | | percutaneous coronary [...] | | 10/15/2017 13:25:02DT: 10/15/2017 14:11:10Job #: [id number] | |2. Lesion type: C. | |3. [...] |BCN/MODL | | | | | | /[id number] | + + ACT, POC-CCL ONLY (10/15/2017 [...] [facility] | [address] | [place], [place] | | | JULIANN SILVA OF CARE | [address] | [address] | | | TESTS | | | [...] ANA MARIA | [address] | [place], [place] | | | JULIANN SILVA OF [place] | [facility] | [address] | | | TESTS | | | [...] RODGERS | [address] | [place], [place] | | | RICARDO POINT OF CARE | [address] | [address] | | | TESTS | | | | + + + + + CORRESPONDENT EMERGENT/IMMEDIATE PROCEDURE (10/15/2017 11:00 AM PST) + + | Specimen | + + | | + + + + + | Narrative | Performed At | + + + | Procedure | | | performed in the Cardiac Claim Review Medical Director. See procedure notes for details. | | [...] RODGERS | [address] | [place], [place] | | | RICARDO POINT OF CARE | [facility] | [address] | | | TESTS | | | [...] [facility] | [address] | [place] [address] | | | SERVICES, CORE | PARK [...] | | | LABORATORY | | | AFGHAN | | | SERVICES, | | | [...] + + + + | [facility] | [address] | [place] [address] | | | SERVICES, CORE | PARK [...] + + + + | [facility] | [address] | [place] [address] | | | ИРИНА ANTOINE | JT [...] + + + | EULOGIO R[facility]GERS | [address] | [place], [place] | | | RICARDO POINT OF CARE | [address] | [address] | | | TESTS | | | [...] | | | LABORATORY | | | AFGHAN | | | SERVICES, | | | [...] + + + + | [facility] | [address] [facility] | [place] [address] | | | SERVICES, CORE | PARK [...] [facility] | [address] | [place] [address] | | | ИРИНА ANTOINE | JT ALCIEA | | | + + + + [...] RODGERS | [address] | [place], [place] | | | JULIANN SILVA OF [facility] | [address] | [address] | | | TESTS | | | [...] IMPRESSION: No significant tracer uptake within the lnq-ia-edrhrn | | | anterior wall/interventricular septum and [...] significant tracer | | uptake within the men-bq-lqywbm anterior wall/interventricular septum and apex | | corresponding to same non-perfused areas seen on myocardial rest perfusion scan, | | compatible with nonviable myocardium in these regions. I have personally reviewed the | | images and, if necessary, edited the report. I agree with the report as now presented. | |No significant tracer uptake within the nds-rh-yakofy anterior wall/interventricular septum and apex corresponding to [...] MARQU[facility] | [address] | [place], [place] | | | JULIANN SILVA OF CARE | [address] | [address] | | | TESTS | | | [...] RODGERS | [address] | [place], [place] | | | JULIANN SILVA OF CARE | [address] | [address] | | | TESTS | | | [...] MARQUAM | [address] | [place], [place] | | | JULIANN SILVA OF CARE | [address] | [address] | | | TESTS | | | [...] MARQUAM | [address] | [place], [place] | | | JULIANN SILVA OF CARE | [facility] | [address] | | | TESTS | | | [...] RODGERS | [address] | [place], [place] | | | JULIANN SILVA OF CARE | [address] | [address] | | | TESTS | | | [...] BLUAM | [address] | [place], [place] | | | RICARDO POINT OF CARE | [address] | [address] | | | TESTS | | | [...] MARQUAM | [address] | [place], [place] | | | JULIANN SILVA OF CARE | [address] | [address] | | | TESTS | | | [...] RODGERS | [address] | [place], [place] | | | JULIANN SILVA OF CARE | [address] | [address] | | | TESTS | | | [...] BLUAM | [address] | [place], [place] | | | JULIANN SILVA OF CARE | [address] | [address] | | | TESTS | | | [...] - MAR[facility] | [address] | [place], [place] | | | JULIANN SILVA OF CARE | [address] | [address] | | | TESTS | | | [...] RODGERS | [address] | [place], [place] | | | JULIANN SILVA OF [facility] | [address] | [address] | | | TESTS | | | | + + + + + NM MYOCARDIAL PERFUSION (SPECT) SINGLE AT REST OR STRESS (10/13/2017 11:18 AM PST) + + | Specimen | + + | | + + + + + | Narrative | Performed At | + + + | EXAM: Regadenoson Sestamibi SPECT Myocardial Perfusion Study | [facility] | | 10/13/17 09:54:20 HISTORY: Myocardial [...] RODGERS | [address] | [place], [place] | | | RICARDO POINT OF CARE | [address] | [address] | | | TESTS | | | [...] [facility] | [address] | [place] [address] | | | SERVICES, CORE | PARK [...] | | | LABORATORY | | | AFGHAN | | | SERVICES, | | | [...] | + + + + + | [facility] | [address] | [place] [address] | | | ИРИНА ANTOINE | JT [...] 70 - 99 mg/dL | [facility] - | | | GLUCOSE, | [...] RODGERS | [address] | [place], [place] | | | JULIANN SILVA OF CARE | [address] | [address] | | | TESTS | | | [...] + + + + | [facility] | [address] [facility] | [place] [address] | | | SERVICES, CORE | JT [...] RODGERS | [address] | [place], [place] | | | JULIANN SILVA OF [place] | [facility] | [address] | | | TESTS | | | | + + + + + MR CARDIAC COMPREHENSIVE W/O CONTRAST (10/12/2017 12:38 PM PST) + + | Specimen | + + | | + + + + + | Narrative | Performed At | + + + | Report ====== Deaf/Hard Of Hearing Specialist: Rodríguez Fortune ([id number])shubham | EULOGIO | | richy Hand Stitcher: shubham lockhart Fellow: shubham lockhart | RADIOLOGY | | Community Dietitian: shubham lockhart Viewer: hsubham lockhart Report Date: | CARDIAC IMAGING | | Oct 2017, 09:22:25 PST Patient ------- Patient: RON MCKEON | | | Acc #: [id number] | | | Ethnicity: N Status: Final [...] | | | Image Quality: Good Scanner Radio Electronics Officer: Cancer Genetics Scanner | | | Model: NeurOp Scanner Serial Number: [id number] Scanner Software | | | Platform: 5.3.15.3.1.0 Staff: Rodríguez Fortune Modality: MR | | | Indication Name: routine Protocol Name: CMR W Flows WO Contrast | | | Findings -------- Non-cardiac findings were reviewed by Dr. Curtis. | | | This exam was terminated prematurely and is lmiited to financial planning consultant images. | | | There are [...] - 10/16/2017 9:22 AM PST | | Report======Deaf/Hard Of Hearing Specialist: Rodríguez Fortune ([phone]), shubham Rodriguezalyst: shubham | | Lorena: shubham Garciaechnician: shubham Beckwithwer: shubham | | Rosey Date: 16 Oct 2017, 09:22:25 PSTPatient-------Patient: RON MCKEON | | JMedical Record Number: [id number] ID: [id number] #: [id number]: [id number]: | | Final ReportReport Number: [id number]: MaleBirthdate: 1955 (61 yrs)Study Date: 05 | | Oct 2017Study Description: CMR with Flows with ContrastReferring Physician: KHURRAM | | ANASTACIAITSAULOBlood Pressure: /Heart rate:Height (cm): 0Weight (kg): 89BMI (kg/m ): 0BSA | | (m ): 0 (Mosteller Formula)Image Quality: Jazmincansaulo Radio Electronics Officer: GroundLink | | EtactsScanner Model: VenJuvocanRivet Games Serial Number: [id number] Software Platform: | | 5.3.15.3.1.0Staff: Rodríguez FortuneModality: MRIndication Name: routineProtocol Name: | | CMR W Flows WO ContrastFindings--------Non-cardiac findings were reviewed by | | Ever.This exam was terminated prematurely and is lmiited to financial planning consultant images.There are | | bilateral pleural [...] Formula) | |Image Quality: Good | |Scanner Radio Electronics Officer: Cancer Genetics | |Scanner Model: NeurOp | |Scanner Serial Number: [id number] | |Scanner Software Platform: 5.3.15.3.1.0 | |Staff: Rodríguez Fortune | |Modality: MR | |Indication Name: routine | |Protocol Name: CMR W Flows WO Contrast | |Findings | |-------- | |Non-cardiac findings were reviewed by Dr. Curtis. | |This exam was terminated prematurely and is lmiited to financial planning consultant images. | |There are bilateral pleural [...] MARIA | [address] | [place], [place] | | | JULIANN SILVA OF CARE | [address] | [address] | | | TESTS | | | [...] LABORATORY | [address] | [place] [address] | | | SERVICES, CORE | JT [...] [facility] | [address] | [place] [address] | | | ИРИНА ANTOINE | JT [...] | | | LABORATORY | | | AFGHAN | | | SERVICES, | | | [...] | + + + + + | [facility] | [address] [facility] | [place] [address] | | | ARASH, ИРИНА | JT [...] EULOGIO CALABRESE | [address] | [place] [address] | | | SERVICES, ИРИНА | JT [...] MAR[facility] | [address] | [place], [place] | | | RICARDO POINT OF CARE | [address] | [address] | | | TESTS | | | [...] EULOGIO RODGERS | [address] | [place], [place] | | | RICARDO [place] OF [facility] | [address] | [address] | | | TESTS | | | [...] EULOGIO on: 10/12/2017 8:10:02 AM PST by: [id number] | | + + + + + + + + | Performing | Address | City/State/Zipcode | Phone Number | | Organization | | | | + + + + + | [facility] - | [address] | [place] [address] | | | [place] | | | | + + + [...] + + + + | [facility] | [address] | [place] [address] | | | ИРИНА ANTOINE | JT [...] [facility] | [address] | [place] [address] | | | SERVICES, CORE | PARK [...] [facility] | [address] | [place] [address] | | | SERVICES, ИРИНА | JT [...] [facility] | | considered for monitoring 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 manager glycemic control in patients with: | [...] | fructosamine should be considered for monitoring nursing home glycemic | | | control in patients [...] | + + + + + | [facility] | [address] [facility] | [place] [address] | | | SERVICES, SPECIAL | JT [...] Performed At | + + + | [facility] | [facility] DEPT OF | | [facility] | CARDIOLOGY | | Laboratory [address] [place] [address], | | | [place] [address] Pt Name: | | | RON MCKEON Study Date/Time 10/11/2017 / 11:47:35 | | | AMMRN: [id number] Most recent | | | prior: 03/30/2017Acc #: [id number] No. | | | previous echos: 4DOB: 1955 61 years Heart | | | Rate: 84 bpmHeight: 69.0 in | | | Blood Pressure: 115/68 mm/HgWeight: 196.0 | | | lb Gender: | | | MBSA: 2.05 m2 Order | | | ID: [id number] Lost Charge Card Clerk: Shahab Sutton [facility] | [...] | | | presents on transfer from [place] for consideration of complex PCI | | [...] | | Ao (prox) 3.70 cm 18.1 mm/o3Lxazirgpvg of | | | chamber size and geometry is accomplished through the incorporation of | | | linear, volumetric, and indexed values Wall Scoring: Report | | | electronically signed by: [id number] Khurram Bedoya MD (10/11/2017, | | | 12:59:49 PM) Final (Updated) | | | Final (Updated) | | + + + + + | Procedure Note | + + | Interface, Cardiology Results - 10/11/2017 1:00 PM [facility] | | [facility] Echocardi[facility] Laboratory [address] [place] [address] | | [place], [place] [address] Pt Name: RON Chaudhary | | MIKE Study Date/Time 10/11/2017 / 11:47:35 AMMRN: [id number] Most | | recent prior: 03/30/2017Acc #: [id number] No. previous echos: 4DOB: | | 1955 61 years Heart Rate: 84 bpmHeight: 69.0 in Blood | | Pressure: 115/68 mm/HgWeight: 196.0 lb Gender: MBSA: | | 2.05 m2 Order ID: [id number] Lost Charge Card Clerk: Shahab Sutton RDReferring | | Provider: Kimmy [...] use disorder who presents on transfer from [place] | | for consideration of complex PCI [...] Ao (prox) | | 3.70 cm 18.1 mm/c1Trplrkxysg of chamber size and geometry is accomplished | | through the incorporation of linear, volumetric, and indexed values Wall Scoring: Report | | electronically signed by: [id number] Khurram Bedoya MD (10/11/2017, 12:59:49 PM) | [...] | | | |Report electronically signed by: [id number] Khurram Bedoya MD (10/11/2017, 12:59:49 | |PM) | | | | | | | | Final (Updated) | + + + + + + + | Performing | Address | City/State/Zipcode | Phone Number | | Organization | | | | + + + + + | [facility] | [address] | [place], [place] | | | CARDIOLOGY | [address] | [address] | | + + + + + X-RAY PORTABLE CHEST 1 VIEW (10/11/2017 11:24 AM PST) + + | Specimen | + + | | + + + + + | Narrative | Performed At | + + + | STUDY: AK CHEST 1 VIEW COMPARISON: 03/21/17. HISTORY: Cough. [...] Note | + + | Service Account, [employer] Res In Interface - 10/11/2017 1:51 PM PST STUDY: AK CHEST 1 | | VIEW COMPARISON: 03/21/17.HISTORY: [...] EULOGIO LABORATORY | [address] | [place] [address] | | | SERVICES, CORE | PARK [...] + + + + | [facility] | [address] | [place] [address] | | | ИРИНА ANTOINE | JT [...] | | | LABORATORY | | | AFGHAN | | | SERVICES, | | | [...] + + + + | [facility] [employer]) | [address] | [place] [address] | | | SERVICES, ИРИНА | JT [...] [facility] | [address] | [place] [address] | | | SERVICES, CORE | PARK [...] [facility] | [address] | [place] [address] | | | ИРИНА ANTOINE | JT [...] | + + + + + | [facility] | [address] [facility] | [place] [address] | | | SERVICES, CORE | PARK [...] [facility] | [address] | [place] [address] | | | SERVICES, CORE | JT [...] DEPT OF | [address] | [place], [place] | | | CARDIOLOGY | [address] | [address] | | + + + + + [...] disease involving samish coronary artery of samish heart, angina | | presence unspecified | [...] of unspecified type of vessel, | | samish or graft | + + | Paroxysmal atrial flutter (HCC) Atrial flutter | + + | Chronic systolic congestive heart failure (HCC) Chronic systolic heart failure | + + | Encounter for insertion of cardiac resynchronization therapy defibrillator (TUBE WINDER HAND-D) | + + | Influenza, pneumonia Influenza [...] PST | | | | | Until [facility] 10/15/17 at 1220 | | | [...]
--- OUTSIDE RECORDS SUMMARY | ~2019-02-08 | XMS | Encounter Summary ---
Demographics + + + | Address | [address] | | | [place] [address] | + + + | Home Phone [...] | | | | | [place] [address] | | + + + + + Care Team Providers + +------+ + | Care Supervisor [place] Name | Role | Phone | + [...] | | | | | (HCC) | [place], [place] | for Health | | | | | Stenosis of | [address] | and Healing | | | | | coronary | Phone: | [place], [place] | | | | | artery | [phone] | [address] | | | | | stent, | Fax: | Phone: | | | | | initial | [phone] | [phone] | | | | | encounter | | Fax: | | | | | Procedures | | [phone] | | | | | CONSULT TO [...] + + | 10/10/ | Hospital | [address] | Khurram Bedoya | | | 2018 - | Encounter | [address] | MD Kari [address] | | | | | [address] [place] [address] | [address] | | | 10/17/ | | [place] | [place] | | | 2018 | | [address] | [address] | | | | | [phone] | [phone] | | | | | | | [...] Referring Physician & Institution: Other Dictation Primary/Outpatient Behavioral Geneticist: Dr Jamal Guerrero MD Inpatient Attending Physician: Khurram Bedoya MD Author/Discharging Provider: LALA SCHOFIELD PA-C Admission Date: 10/10/2017 Discharge Date: 10/17/2017 Active Hospital Problems 1) *NSTEMI (non-ST elevated myocardial infarction) (HCC) 2) Coronary artery disease 3) Stenosis of coronary artery stent 4) Ischemic cardiomyopathy 5) Chronic systolic congestive heart failure (HCC) 7) Encounter for insertion of cardiac resynchronization therapy defibrillator (SERVICE SPRINKLER HELPER-D) 8) Paroxysmal atrial flutter (HCC) 9) Influenza, pneumonia 10) Prediabetes 11) Tobacco use Procedures 10/15/17: Successful percutaneous coronary intervention to the ostial left circumflex. One 3.0 x 18 mm Resolute [place] drug-eluting stent. Successful percutaneous coronary transluminal angiopla sty of the distal left main extending into the left anterior descending coronary artery with final kissing balloon inflation with a 3.5 mm noncompliant and a 2.5 mm compliant balloon. 10/16/17: 1) EP study with VT induction 2) SERVICE SPRINKLER HELPER-D implantation Reason For Admission: Consideration of complex PCI vs CABG for in-stent restenosis of LCx and LM/LAD stents Hospital Course: Please see H&P for hospital course at [place] prior to transfer to [facility]. Ron Mckeon is a 61 year [...] treatment who was admitted in transfer from [place] on 10/11 for consideration of PCI vs [...] support--had one 3.0 x 18 [address] Resolute [place] dr ug-eluting stent placed in ostial L [...] 10/16. VT was induced, therefor e a SERVICE SPRINKLER HELPER-D was implanted. He is discharging home in good condition with follow up in 1 week w ith his Behavioral Geneticist. The following problems were addressed this hospitalization: [...] uenza and underwent a coronary angiogram at [place] which revealed in stent re-stenosis of both LM into LAD and LCx stents, mild disease of RCA. Transferred to [facility] for further onel luation. CTS was consulted for consideration of CABG vs complex PCI. Due to nonviable myocardium archie wn on cardiac PET and resting NM perfusion study, PCI was chosen over CABG. On 10/15 he underw ent angiography/PCI with impella support--had one 3.0 x 18 mm Resolute [place] drug-eluting chery nt placed in ostial L [...] II, Stage C. Etiology ischemic. TTE at [facility] showed EF 30-35%, mildly reduced RV [...] the past --ICD: placed by EP 10/16, SERVICE SPRINKLER HELPER-D -- will need 1 week f/u for wound check, then 1 month device check with EP -- f/u with outpatient agricultural education teacher 2-4 weeks # Paroxysmal Aflutter Noted Aflutter with RVR at admission in [place]; treated with amiodarone infusion. He w as transitioned to oral amiodarone and maintained normal rhythm. Given that the aflutter occ urred in setting of severe sepsis, will not continue amiodarone or warfarin. If he has recur rent arrhythmia, this will be noted on SERVICE SPRINKLER HELPER-D and could consider anticoagulation at that time . However, he requires DAPT and has a possible history of recent GIB, so triple therapy shou ld be avoided if not necessary --rate control: metoprolol as above --anticoagulation: holding warfarin for now given DAPT and h/o GI B. Discuss further with outpatient agricultural education teacher. May consider holding anticoagulation unless he demonstrates recurrent arrhythmia # Influenza type A - resolved # Community acquired pneumonia # Severe sepsis with shock, resolved Pt presented to [place] 10/03 found to be Flu Apositive with [...] sepsis management , fluid resuscitation. EGD at [place] on 10/05 showed gastritis, duodenitis, linear ulcerations [...] first post-hospitalization visit: 1. Wound check from SERVICE SPRINKLER HELPER-D placement 2. Consider restarting lisinopril if BPs improve and Cr is stable 3. Instructed pt to restart metformin on 08/18 but reevaluate based on Cr Schedule the following appointment(s) when you get home KULWINDER Stevens. Go on 10/19/2017. Why: at 1:15pm for heart failure follow up, to re-check labwork, and to have your wound ch ecked Contact information HEART [address] [address] KULWINDER Stevens. Go on 11/11/2017. Why: at 9:30am for cardiology follow up and to have your device checked Contact information HEART [address] [address] Medication List START taking these medications Childrens [...] Resume on 10/19. Indications: type 2 diabetes [facility] metoprolol succinate 25 mg Tb24 [...] circumflex. One 3.0 x 18 mm Resolute [place] drug-eluting stent. Successful percutaneous coronary transluminal angiop [...] ths. You should be cleared by your agricultural education teacher prior to returning to driving. If you [...] How to Contact us: Cardiology Division Office [phone] Cardiology Patient Phone Line EDUIN [address] Dr[address] Dr., Dr., PA-C Connie Barber, NP Karen Paladino, RN Margaret Kleist, RN Evenings or weekends: Ask for on-call agricultural education teacher Drug Eluting Stent 1. Please take Plavix (clopidogrel) everyday which helps to keep the stent open. You need t o take it every day for one year and do not stop unless you are told to by your agricultural education teacher . 2. Take an aspirin 81 mg once daily indefinitely. 3. You were referred for cardiac rehab and should start now that you have had a stent place d. 4. Follow up with your agricultural education teacher within 2-4 weeks. 5. No elective surgeries [...] Medicine [facility] Cardiovascular [place] [facility] [place] I spent 36 minutes in coordination of care and wtps-ij-olhd with the patient and/or their s urrogate in which the problems above were discussed Associated attestation - Khurram Bedoya MD - 10/17/2017 3:22 PM PSTCardiology Anthony souza I have seen and examined Mr. Mckeon and discussed the patient's management with the [facility] ny[facility] practitioner. I reviewed the practitioner's note above and agree with the documented f indings and plan of care. KHURRAM BEDOYA MD Director of the [facility] Hypertrophic Cardiomyopathy Extruder Tender of Echocardiography Picture Enlargerscreen repairer crusher Division of Cardiovascular Medicine documented in this encounter Discharge Instructions AttachmentsThe following attachments cannot be sent through Care Everywhere.WOUND CHECK (EN GLISH)ICD (IMPLANTABLE CARDIOVERTER-DEFIBRILLATOR): POST-OP (AFGHAN)PAIN POST-SURGERY: ACUT E (AFGHAN)OPIOIDS: SAFE USE (AFGHAN)OPIOIDS: STORAGE AND DISPOSAL: GENERAL INFO (AFGHAN)d ocumented in this encounter Medications at Time [...] Information: Implant date: 10/16/17 BiV-ICD pulse generator: Dining Car Hop: MedAdAdapted Model number: [id number] Serial number: [id number] RA lead: Dining Car Hop: Medtronic Model number: 5076-52 Serial number: [id number] RV lead: Dining Car Hop: Medtronic Model number: [id number] Serial number: [id number] CS lead: Dining Car Hop: Medtronic Model number: [id number] Serial number: [id number] ICD PROGRAMMING: Bradycardia Parameters: Mode: DDD Lower rate limit: 50 Upper rate limit: 130 Output (A): 3.5 V at 0.4 ms Sensitivity (A): 0.3 mV Output (RV): 3.5 V at 0.4 ms Sensitivity (RV): 0.3 mV Output (CS): 2.0 V at 0.4ms Tachycardia Parameters: VT zone: 177-200 Therapies: Monitor VF zone: >200 bpm Therapies: 35 J x 6 PACING PERCENTAGE: AP: <0.1% METAL CASKET ASSEMBLER: 98.3% EPISODES SINCE IMPLANT: none. TODAY'S TESTING [...] and Device check in one month at [facility] device clinic. I have reque sted [...] MD Electrophysiology Fellow Division of Cardiovascular Medicine [facility] Pager [phone] signed by Lauro Jorgensen MD at 10/18/2017 [...] follow up. Lauro Jorgensen M.D. Director, Electrophysiology Pen Makercrepe laminator operator [facility] [place] [address] Amarilis Castle MD - 10/17/2017 10:53 AM [...] hs. You should be cleared by your agricultural education teacher prior to returning to driving. ? If [...] through the full body scanner at [facility], but only after 6 weeks [...] How to Contact us: Cardiology Division Office [phone] Cardiology Patient Phone Line EDUIN [address] Dr[address] [...] 1) EP study with VT induction 2) SERVICE SPRINKLER HELPER-D Indication for the procedure: Ischemic cardiomyopathy with [...] MD Electrophysiology Fellow Division of Cardiovascular Medicine [facility] Pager [phone] ala Schofield PA-C - 10/16/2017 2:07 PM PST IP Cardiology Progress Note Date: 10/16/2017 Hospital Day: 6 Attending Behavioral Geneticist: Khurram Bedoya MD Provider: LALA SCHOFIELD PA-C Primary Care Provider: Chato Matson MD Outpatient Behavioral Geneticist: Dr Jamal Guerrero MD ID:Ron Mckeon is [...] treatment who was admitted in transfer from [place] on 10/11 for consideration of PCI vs [...] cannot appreciate murmur and sounds regular. J METAL CASKET ASSEMBLER not above clavicle at 90 degrees Gastrointestinal: [...] found for: FREET4, TSH, TPOAB, THYROGLOB, THYROGLOBAB, [id number] Lab Results Component Value Date A1C 5.9 [...] circumflex. One 3.0 x 18 mm Resolute [place] drug-eluting stent. Successful percutaneous coronary transluminal angiopla [...] uenza and underwent a coronary angiogram at [place] which revealed in stent re-stenosis of both LM into LAD and LCx stents, mild disease of RCA. Transferred to [facility] for further onel luation. CTS was [...] II-III, Stage C. Etiology ischemic. TTE at [facility] showed EF 30-35%, mildly reduced RV [...] check with EP -- f/u with outpatient agricultural education teacher 2-4 weeks # Paroxysmal Aflutter Noted Aflutter with RVR at admission in [place]; treated with amiodarone infusion. Now maintaining SR on oral amio. CHADS-VASC 3, HAS-BLED 3. Was previously on heparin infusion fo r NSTEMI but this has been stopped and AC was not started in anticipation of PCI. --rate control: carvedilol as above --rhythm control: continue amiodarone 200 mg daily for now, to be reassessed b y outpatient agricultural education teacher --anticoagulation: holding warfarin for now given DAPT and h/o GIB. Discuss fu rther with outpatient agricultural education teacher. May consider holding anticoagulation unless he demonstra janeth recurrent arrhythmia # Influenza type A - resolved # Community acquired pneumonia # Severe sepsis with shock, resolved Pt presented to [place] 10/03 found to be Flu A positive [...] sepsis management , fluid resuscitation. EGD at [place] on 10/05 showed gastritis, duodenitis, linear ulcerations [...] patient was interviewed and examined by attending agricultural education teacher, Dr. Khurram Bedoya MD , who is in agreement with above described findings, assessment and plan. LALA SCHOFIELD PA-C Cardiovascular Medicine [facility] Pager [phone] I spent 36 minutes in coordination of care and rwpy-dw-ylwv with the patient and/or their surrogate in [...] current post-cath car e. JOHN AMAYA MD [address] [place] [address] Ruth Ann Aguilar PA-C - [...] circ and LAD. EPS v-stim with possible SERVICE SPRINKLER HELPER-D tomorrow (QRS today is 152 atypical LB BB). See yesterdays attestation Sophie Darby MD Cardiovascular Medicine - Electrophysiology [facility] Cardiovascular [place] at [facility] Arya Low MD - 10/15/2017 1:05 PM PSTCARDIOLOGY PRELIMINARY PROCEDURE NOTE Primary Care Provider: Chato Matson MD Referring Provider: Other Dictation Gis Geographer Staff: Tejal Modi M.D. Procedure(s): 1. Coronary angiography 2. Percutaneous coronary intervention 3. Left heart catheterization 4. Impella placement and removal 5. Moderate conscious sedation Indications: Unstable angina, planned LM intervention Access: 14-Malaysian RFA 6-Malaysian RFV 7-Malaysian LFA Post Procedure Access:No evidence of significant [...] Note Date: 10/15/2017 Hospital Day: 5 Attending Behavioral Geneticist: Khurram Bedoya MD Provider: LALA SCHOFIELD PA-C Primary Care Provider: Chato Matson MD Outpatient Behavioral Geneticist: Dr Jamal Guerrero MD ID:Ron Mckeon is [...] treatment who was admitted in transfer from [place] on 10/11 for consideration of PCI vs [...] cannot appreciate murmur and sounds regular. J METAL CASKET ASSEMBLER not above clavicle at 90 degrees Gastrointestinal: [...] found for: FREET4, TSH, TPOAB, THYROGLOB, THYROGLOBAB, [id number] Lab Results Component Value Date A1C 5.9 [...] uenza and underwent a coronary angiogram at [place] which revealed in stent re-stenosis of both LM into LAD and LCx stents, mild disease of RCA. Transferred to [facility] for further onel luation. CTS was consulted for consideration of CABG vs complex PCI. Due to nonviable myocardium archie wn on cardiac PET and resting NM perfusion study, he will proceed with PCI tomorrow with Imp tania support. -- to photonic laboratory technician today for PCI with impella [...] II-III, Stage C. Etiology ischemic. TTE at [facility] showed EF 30-35%, mildly reduced RV [...] Noted Aflutter with RVR at admission in [place]; treated with amiodarone infusion. Now maintaining SR [...] sepsis with shock, resolved Pt presented to [place] 10/03 found to be Flu A positive [...] sepsis management , fluid resuscitation. EGD at [place] on 10/05 showed gastritis, duodenitis, linear ulcerations [...] patient was interviewed and examined by attending agricultural education teacher, Dr. Khurram Bedoya MD , who is in agreement with above described findings, assessment and plan. LALA SCHOFIELD PA-C Cardiovascular Medicine [facility] Pager [phone] I spent 38 minutes in coordination of care and xonl-gw-wkhv with the patient and/or their surrogate in [...] care. KHURRAM BEDOYA MD Director of the [facility] Hypertrophic Cardiomyopathy Extruder Tender of Echocardiography Picture Enlargerscreen repairer crusher Division of Cardiovascular Medicine Ruth Ann Carvajal [...] thickening is segmentally abnormal. 10/03/17: TTE @ [facility] Summary The number of aortic valve leaflets [...] remain. CARDIAC CATHETERIZATION: DATE OF PROCEDURE:10/03/17 @ [facility] CORONARY ANGIOGRAPHY DOMINANCE: Right LEFT MAIN ARTERY: [...] about Vf/VT risk in both short and snf. Given NSVT and EF 30-35%, we will therefore proceed to an EP study with implantation o f an ICD if she has inducible VT. Given atypical LBBB QRS 147 and current functional status 3 (prior 1-2 by report) and concern for lack of EF recovery, we would plan for SERVICE SPRINKLER HELPER with His- bundle lead if needed. Sophie Darby MD Cardiovascular Medicine - Electrophysiology [facility] Cardiovascular [place] at [facility] Lala Schofield PA-C - 10/14/2017 11:58 AM PSTFormatting of this note might be different f rom the original. IP Cardiology Progress Note Date: 10/14/2017 Hospital Day: 4 Attending Behavioral Geneticist: Khurram Bedoya MD Provider: LALA SCHOFIELD PA-C Primary Care Provider: Chato Matson MD Outpatient Behavioral Geneticist: Dr Jamal Guerrero MD ID:Ron Mckeon is [...] treatment who was admitted in transfer from [place] on 10/11 for consideration of PCI vs [...] Very t hankful of care provided at [facility] Current Inpatient Medications: acetaminophen (TYLENOL) tablet [...] found for: FREET4, TSH, TPOAB, THYROGLOB, THYROGLOBAB, [id number] Lab Results Component Value Date A1C 5.9 [...] uenza and underwent a coronary angiogram at [place] which revealed in stent re-stenosis of both LM into LAD and LCx stents, mild disease of RCA. Transferred to [facility] for further onel luation. CTS was [...] II-III, Stage C. Etiology ischemic. TTE at [facility] showed EF 30-35%, mildly reduced RV [...] Noted Aflutter with RVR at admission in [place]; treated with amiodarone infusion. Now maintaining SR [...] sepsis with shock, resolved Pt presented to [place] 10/03 found to be Flu A positive [...] sepsis management , fluid resuscitation. EGD at [place] on 10/05 showed gastritis, duodenitis, linear ulcerations [...] patient was interviewed and examined by attending agricultural education teacher, Dr. Khurram Bedoya MD , who is in agreement with above described findings, assessment and plan. LALA SCHOFIELD PA-C Cardiovascular Medicine [facility] Pager [phone] I spent 42 minutes in coordination of care and frjy-ns-djek with the patient and/or their s urrogate [...] care. KHURRAM BEDOYA MD Director of the [facility] Hypertrophic Cardiomyopathy Extruder Tender of Echocardiography Picture Enlargerscreen repairer crusher Division of Cardiovascular Medicine Ashleigh Alvarez ACNP - 10/13/2017 8:33 AM PSTFormatting of this note might be diff erent from the original. Cardiology Inpatient Progress Note Date: 10/13/2017 Hospital Day: 3 Primary Care Physician: Chato Matson MD Outpatient Behavioral Geneticist: Dr Jamal Guerrero MD Attending Behavioral Geneticist: Khurram Bedoya MD Provider: KULWINDER Grace ID: [...] who was admitted in transfe r from [place] on 10/11 for consideration of PCI vs [...] found for: FREET4, TSH, TPOAB, THYROGLOB, THYROGLOBAB, [id number] Lab Results Component Value Date A1C 5.9 [...] exam dated, 03/30/2017, the LVEF is similar. [facility] CXR 10/11/17: FINDINGS: The increased lung [...] flow to distal LAD 10/03/17 Echo at [place]: The number of aortic valve leaflets cannot [...] stents # NSTEMI Pt was admitted to [place] 10/03 with hypoxemic respiratory failure, severe sepsis and s hock thought to be due to influenza type A as below. Noted to have new LBBB, NSTEMI with pea k trop 26. Underwent coronary angiogram at [place] 10/04 which revealed in stent re-steno sis of both LM into LAD and LCx stents, mild disease of RCA. Transferred to [facility] for further evaluation. TTE showed LV [...] PCI (likely with Dr Modi with [facility] a support) which would require repeat [...] II-III, Stage C. Etiology ischemic. TTE at [facility] showed EF 30-35%, mildly reduced RV function, mild dilation of ascending aorta. LVEDP 14 mm hg during catheterization 10/04 ( in setting of hypotension). Pt was diuresed at [place], appears euvolemic on exam. Pt wa s [...] Noted Aflutter with RVR at admission in [place], treated with amiodarone infusion, bertha alonzo SR [...] admitted with acute dyspnea, respiratory failure to [place] 10/03 found to be Flu A p [...] sepsis management , fluid resuscitation. EGD at [place] on 10/05 showed gastritis, duodenitis, linear ulcerations [...] patient was interviewed and examined by attending agricultural education teacher, Dr. Khurram Bedoya MD , who is in agreement with above described findings, assessment and plan. KULWINDER Grace Instructor of Medicine [facility] Cardiovascular [place] Pager [phone] I spent 33 minutes in coordination of care and tded-cy-iwnw with the patient and/or their s urrogate [...] care. KHURRAM BEDOYA MD Director of the [facility] Hypertrophic Cardiomyopathy Extruder Tender of Echocardiography Picture Enlargerscreen repairer crusher Division of Cardiovascular Medicine Ashleigh Alvarez ACNP - 10/12/2017 8:02 AM PSTFormatting of this note might be diff erent from the original. Cardiology Inpatient Progress Note Date: 10/12/2017 Hospital Day: 2 Primary Care Physician: Chato Matson MD Outpatient Behavioral Geneticist: Dr Jamal Guerrero MD Attending Behavioral Geneticist: Khurram Bedoya MD Provider: KULWINDER Grace ID: [...] who was admitted in transfe r from [place] on 10/11 for consideration of PCI vs [...] found for: FREET4, TSH, TPOAB, THYROGLOB, THYROGLOBAB, [id number] Lab Results Component Value Date A1C 5.6 [...] exam dated, 03/30/2017, the LVEF is similar. [facility] CXR 10/11/17: FINDINGS: The increased lung [...] flow to distal LAD 10/03/17 Echo at [place]: The number of aortic valve leaflets cannot [...] stents # NSTEMI Pt was admitted to [place] 10/03 with hypoxemic respiratory failure, severe sepsis and s hock thought to be due to influenza type A as below. Noted to have new LBBB, NSTEMI with pea k trop 26. Underwent coronary angiogram at [place] 10/04 which revealed in stent re-steno sis of both LM into LAD and LCx stents, mild disease of RCA. Transferred to [facility] for further evaluation. TTE shows LV [...] II-III, Stage C. Etiology ischemic. TTE at [facility] showed EF 30-35%, mildly reduced RV function, mild dilation of ascending aorta. LVEDP 14 mm hg during catheterization 10/04 ( in setting of hypotension). He was diuresed at [place], appears euvolemic on exam today. Pt was [...] Aflutter with RVR prior to admission in [place], treated with amioda rima infusion, maintaining SR [...] admitted with acute dyspnea, respiratory failure to [place] 10/03 found to be Flu pos itive. [...] sepsis management , fluid resuscitation. EGD at [place] on 10/05 showed gastritis, duodenitis, linear ulcerations [...] patient was interviewed and examined by attending agricultural education teacher, Dr. Khurram Bedoya MD , who is in agreement with above described findings, assessment and plan. Ashleigh Alvarez, [facility] Instructor of Medicine [facility] Cardi[facility] [place] Pager [phone] I spent 51 minutes in coordination of care and acgx-jw-ryau with the patient and/or their s urrogate in which management of CAD, imaging plan and consultation with radiology, pneumonia treatment was discussed Associated attestation - Khurram Bedoya MD - 10/12/2017 3:00 PM PSTCardiology Attendi I have seen and examined Mr. Mckeon and discussed the patient's management with the [facility] nyed practitioner. I reviewed the practitioner's note above and agree with the documented f indings and plan of care. KHURRAM BEDOYA MD Director of the [facility] Hypertrophic Cardiomyopathy Extruder Tender of Echocardiography Picture Enlargerscreen repairer crusher Division of Cardiovascular Medicine Cristi Sutton - 10/11/2017 12:15 PM PSTTransthoracic echocardiogram completed. Final report to follow. documented in this enc ounter Plan of Treatment + +---------+--------+ + + | Name | Type | Priori | Associated Diagnoses | Order Schedule | | | | ty | | | + +---------+--------+ + + | PEDICURIST INT | Imaging | Routin | | Tomorrow for 1 | | CORONARY ANGIOGRAM | | e | | Occurrences starting | | | | | | 10/15/2017 until | | | | | | 10/15/2017 | + +---------+--------+ + + | PEDICURIST EP ICD | Imaging | Routin | [...] | POC | | PST | infarction) ([facility]) | results section. | + +--------+ + + + | CAPILLARY BLOOD | Routin | 10/17/2017 | Non-ST elevation | Results for this | | GLUCOSE (NO CHG), | e | 7:38 AM | (NSTEMI) myocardial | procedure are in the | | POC | | PST | infarction ([facility]) | results section. | + +--------+ [...] | | | | PST | infarction) ([facility]) | results section. | + +--------+ [...] | POC | | PST | infarction ([facility]) | results section. | + +--------+ [...] | + +--------+ + + + | PEDICURIST | Routin | 10/15/2017 | | Results [...] | POC | | PST | infarction ([facility]) | results section. | + +--------+ [...] R[facility]GERS | [address] | [place], [place] | | | R[facility]ARDO POINT OF CARE | [address] | [address] | | | TESTS | | | [...] MARQUAM | [address] | [place], [place] | | | CHRISTIE SILVA [facility] | [address] | [address] | | | TESTS | | | [...] Note | + + | Service Account, Innoverne In Interface - 10/17/2017 7:51 AM PST [...] [facility] | [address] | [place] [address] | | | SERVICES, CORE | PARK [...] | + + + + + | [facility] nPicker | [address] | [place] [address] | | | SERVICES, ИРИНА | JT [...] placement. 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 | | | PROCEDURE ATTENDING: Sophie Darby MD | | | FELLOW: Amarilis Castle MD | | | PROCEDURAL DATA: Procedure: New implant Implanted | | | generator nurse practitioner physicians assistant: Medtronic Implanted leads nurse practitioner physicians assistant: | | | Medtronic Radha-procedure Anticoag: None Presenting rhythm: | | | NSR Existing device under advisory? No Pacemaker | | | dependent: No Method of sedation: Conscious sedation - Anesth | | | provider Response to sedation: Normal Fluoroscopy time (see | | | log): 45-47 minutes MEDICATIONS: See anesthesia log | | | and photonic laboratory technician log INTAKE AND OUTPUT: 1000 [...] INFORMATION: BiV-ICD pulse generator: | | | Dining Car Hop: Medtronic Model number: [id number] Serial | | | number: [id number] RA lead: Dining Car Hop: Medtronic | | | Model number: 5076-52 Serial number: [id number] RV lead: | | | Dining Car Hop: Medtronic Model number: [id number] Serial | | | number: [id number] CS lead: Dining Car Hop: Medtronic | | | Model number: [id number] Serial number: [id number] MEASURED | | | PARAMETERS: RA lead: [...] Division of Cardiovascular Medicine | | | [facility] Pager [phone] Pursuant to | | | Federal Medicare requirements, I certify that I, Sophie Darby MD, | | | was present for the entire procedure, performed all critical | | | elements, and participated directly in the generation of this | | | report. Sophie Darby MD Cardiovascular Medicine - | | | Electrophysiology [facility] Cardiovascular [place] at [facility] | | + + + PROCEDURE [...] See | | | anesthesia log and photonic laboratory technician log FLUIDS: In: 300 ml/ [...] HV interval (ms): 75 | | | LA interval (ms): 180 QRS duration (ms): 130 [...] Division | | | of Cardiovascular Medicine [facility] | | | Pager [phone] Pursuant to Federal Medicare requirements, I certify | | | that I, Sophie Darby MD, was present for the entire procedure, | | | performed all critical elements, and participated directly in the | | | generation of this report. Sophie Darby MD Cardiovascular | | | Medicine - Electrophysiology [facility] Cardiovascular [place] at [facility] | | + + + VBG-FULL ABL, POC (10/16/2017 3:55 PM PST) + + + + + + | Component | Value | Ref Range | Performed | Pathologist | | | | | At | Signature | + + + + + + | PH VENOUS, | 7.32 (L) | 7.35 - 7.45 | [facility] - | | | POC | [...] + + + | EULOGIO [facility] | [address] | [place], [place] | | | JULIANN SILVA OF [place] | [address] | [address] | | | TESTS | | | [...] [facility] | [address] | [place], [place] | | | RICARDO POINT OF CARE | [address] | [address] | | | TESTS | | | [...] [facility] | [address] | [place] [address] | | | SERVICES, CORE | PARK [...] | + + + + + | [facility] | [address] | [place] [address] | | | ИРИНА ANTOINE | JT [...] [facility] | [address] | [place], [place] | | | JULIANN SILVA OF CARE | [address] | [address] | | | TESTS | | | [...] DEPT OF | [address] | [place], [place] | | | CARDIOLOGY | [address] | [address] | | + + + + + CARDIAC CATH (10/15/2017 2:11 PM PST) + + | Procedure Note | + + | Tejal Modi MD - 10/15/2017 2:11 PM PST DATE OF PROCEDURE:October 15, | | 2018PERFORMING PHYSICIAN:Tejal Modi [facility] ATTENDING:Mike Bray MDTheramy was no | | [...] 110 mL.FLUOROSCOPY TIME:17.8 minutes.FLUOROSCOPY | | DAP:7406.0 qGzcr1CVIKLQMQRQRY:1. Left ventricular pressure 91/23 mmHg.2. Aortic | | pressure 93/72 mmHg, mean of 80 mmHg. 3. Heart rate 71 beats per minute.ACCESS:1. | | 14-Malaysian Impella sheath in the right femoral artery.2. 7-Malaysian sheath in the left | | femoral artery.3. 6-Malaysian sheath in the right femoral vein.ESTIMATED BLOOD [...] | micropuncture technique and ultrasound guidance, a 5-Malaysian sheath was inserted in the | | right femoral artery and a 6-Malaysian sheath was inserted in the right femoral vein. Two | | Perclose devices were deployed in the preclosure method and then the 5-Malaysian sheath was | | exchanged over an Amplatz stiff wire for the 14-Malaysian Impella sheath. A 5-Malaysian | | angled pigtail catheter was then [...] technique and ultrasound guidance and placed a 7-Malaysian sheath. A 7-Malaysian XB 3.5 guide | | catheter was [...] and a 3.0 x 18 mm Resolute [place] drug-eluting stent was advanced over the | [...] and pulled out of the body. The 14-Malaysian sheath was | | then removed and [...] with one 3.0 x 18 mm Resolute [place] drug-eluting stent. Successful | | percutaneous coronary [...] | | 10/15/2017 13:25:02DT: 10/15/2017 14:11:10Job #: [id number] | |2. Lesion type: C. | |3. [...] |BCN/MODL | | | | | | /[id number] | + + ACT, POC-CCL ONLY (10/15/2017 [...] [facility] | [address] | [place], [place] | | | JULIANN SILVA OF CARE | [address] | [address] | | | TESTS | | | [...] ANA MARIA | [address] | [place], [place] | | | JULIANN [facility] | [place] | [address] | | | TESTS | | | [...] [facility] | [address] | [place], [place] | | | R[facility]ARDO POINT OF CARE | [address] | [address] | | | TESTS | | | | + + + + + PEDICURIST EMERGENT/IMMEDIATE PROCEDURE (10/15/2017 11:00 AM PST) + + | Specimen | + + | | + + + + + | Narrative | Performed At | + + + | Procedure | | | performed in the Cardiac Gis Geographer. See procedure notes for details. | | [...] [facility] | [address] | [place], [place] | | | R[facility] POINT OF CARE | [place] | [address] | | | TESTS | | | [...] [facility] | [address] | [place] [address] | | | SERVICES, CORE | PARK [...] | + + + + + | [facility] | [address] | [place] [address] | | | SERVICES, CORE | PARK [...] mech. valves (2.5 - 3.5) INR | РИИНА ANTOINE | + + + + + + + + | Performing | Address | City/State/Zipcode | Phone Number | | Organization | | | | + + + + + | [facility] | [address] | [place] [address] | | | ИРИНА ANTOINE | JT [...] + + + | EULOGIO [facility] | [address] | [place], [place] | | | R[facility]O POINT OF CARE | [address] | [phone] | | | TESTS | | | [...] | + + + + + | [facility] | [address] [facility] | [place] [address] | | | SERVICES, CORE | PARK [...] [facility] | [address] | [place] [address] | | | ИРИНА ANTOINE | JT [...] [facility] | [address] | [place], [place] | | | JULIANN SILVA OF [facility] | [address] | [address] | | | TESTS | | | [...] IMPRESSION: No significant tracer uptake within the lfh-vl-qkffdt | | | anterior wall/interventricular septum and [...] significant tracer | | uptake within the zst-bu-gzjrxb anterior wall/interventricular septum and apex | | corresponding to same non-perfused areas seen on myocardial rest perfusion scan, | | compatible with nonviable myocardium in these regions. I have personally reviewed the | | images and, if necessary, edited the report. I agree with the report as now presented. | |No significant tracer uptake within the cwy-jy-jwkbbh anterior wall/interventricular septum and apex corresponding to [...] [facility] | [address] | [place], [place] | | | JULIANN SILVA OF CARE | [address] | [address] | | | TESTS | | | [...] R[facility]GERS | [address] | [place], [place] | | | JULIANN SILVA OF CARE | [address] | [address] | | | TESTS | | | [...] MARQU[facility] | [address] | [place], [place] | | | JULIANN SILVA OF CARE | [address] | [address] | | | TESTS | | | [...] [facility] | [address] | [place], [place] | | | JULIANN SILVA OF CARE | [place] | [address] | | | TESTS | | | [...] R[facility] | [address] | [place], [place] | | | JULIANN SILVA OF CARE | [address] | [address] | | | TESTS | | | [...] BLUAM | [address] | [place], [place] | | | RICARDO POINT OF CARE | [address] | [address] | | | TESTS | | | [...] [facility] | [address] | [place], [place] | | | JULIANN SILVA OF CARE | [address] | [address] | | | TESTS | | | [...] R[facility] | [address] | [place], [place] | | | JULIANN SILVA OF CARE | [address] | [address] | | | TESTS | | | [...] BLU[facility] | [address] | [place], [place] | | | JULIANN SILVA OF CARE | [address] | [address] | | | TESTS | | | [...] - [facility] | [address] | [place], [place] | | | JULIANN SILVA OF CARE | [address] | [address] | | | TESTS | | | [...] R[facility]GERS | [address] | [place], [place] | | | JULIANN SILVA OF [facility] | [address] | [address] | | | TESTS | | | | + + + + + NM MYOCARDIAL PERFUSION (SPECT) SINGLE AT REST OR STRESS (10/13/2017 11:18 AM PST) + + | Specimen | + + | | + + + + + | Narrative | Performed At | + + + | EXAM: Regadenoson Sestamibi SPECT Myocardial Perfusion Study | [facility] | | 10/13/17 09:54:20 HISTORY: Myocardial [...] [facility] | [address] | [place], [place] | | | R[facility]ARDO POINT OF CARE | [address] | [address] | | | TESTS | | | [...] [facility] | [address] | [place] [address] | | | SERVICES, CORE | [...] | + + + + + | [facility] | [address] | [place] [address] | | | ИРИНА ANTOINE | JT [...] (H) | 70 - 99 mg/dL | [facility] - | | | GLUCOSE, | [...] R[facility]GERS | [address] | [place], [place] | | | JULIANN SILVA OF CARE | [address] | [address] | | | TESTS | | | [...] | + + + + + | [facility] | [address] [facility] | [place] [address] | | | SERVICES, CORE | JT [...] [facility] | [address] | [place], [place] | | | JULIANN SILVA [facility] | [place] | [address] | | | TESTS | | | | + + + + + MR CARDIAC COMPREHENSIVE W/O CONTRAST (10/12/2017 12:38 PM PST) + + | Specimen | + + | | + + + + + | Narrative | Performed At | + + + | Report ====== Digital Marketing Lead: Rodríguez Fortune ([id number])shubham | EULOGIO | | richy Boilermaker: shubham lockhart Fellow: shubham lockhart | RADIOLOGY | | Biomass Production Manager: shubham lockhart Viewer: shubham lockhart Report Date: | CARDIAC IMAGING | | Oct 2017, 09:22:25 PST Patient ------- Patient: RON MCKEON | | | Acc #: [id number] | | | Ethnicity: N Status: Final [...] | | | Image Quality: Good Scanner Dining Car Hop: Zirtual Scanner | | | Model: StyroPower Scanner Serial Number: [id number] Scanner Software | | | Platform: 5.3.15.3.1.0 Staff: Rodríguez Fortune Modality: MR | | | Indication Name: routine Protocol Name: CMR W Flows WO Contrast | | | Findings -------- Non-cardiac findings were reviewed by Dr. Curtis. | | | This exam was terminated prematurely and is lmiited to umbrella tipper machine images. | | | There are [...] - 10/16/2017 9:22 AM PST | | Report======Digital Marketing Lead: Rodríguez Fortune ([id number]), shubham Rodriguezalyst: shubham | | Lorena: shubham Garciaechnician: shubham Beckwithwer: shubham | | Rosey Date: 16 Oct 2017, 09:22:25 PSTPatient-------Patient: RON MCKEON | | JMedical Record Number: [id number] ID: [id number] [id number]: [id number]: [id number]: | | Final ReportReport Number: [id number]: MaleBirthdate: 1955 (61 yrs)Study Date: 05 | | Oct 2017Study Description: CMR with Flows with ContrastReferring Physician: KHURRAM | | ANASTACIAITSAULOBlood Pressure: /Heart rate:Height (cm): 0Weight (kg): 89BMI (kg/m ): 0BSA | | (m ): 0 (Mosteller Formula)Image Quality: Jazmincansaulo Dining Car Hop: SportsBoard | | imbookin (Pogby)Scanner Model: GeoVantagecanamprice Serial Number: [id number] Software Platform: | | 5.3.15.3.1.0Staff: Rodríguez FortuneModality: MRIndication Name: routineProtocol Name: | | CMR W Flows WO ContrastFindings--------Non-cardiac findings were reviewed by | | Ever.This exam was terminated prematurely and is lmiited to umbrella tipper machine images.There are | | bilateral pleural [...] Formula) | |Image Quality: Good | |Scanner Dining Car Hop: Zirtual | |Scanner Model: StyroPower | |Scanner Serial Number: [id number] | |Scanner Software Platform: 5.3.15.3.1.0 | |Staff: Rodríguez Fortune | |Modality: MR | |Indication Name: routine | |Protocol Name: CMR W Flows WO Contrast | |Findings | |-------- | |Non-cardiac findings were reviewed by Dr. Curtis. | |This exam was terminated prematurely and is lmiited to umbrella tipper machine images. | |There are bilateral pleural [...] MARIA | [address] | [place], [place] | | | JULIANN SILVA OF CARE | [address] | [address] | | | TESTS | | | [...] LABORATORY | [address] | [place] [address] | | | SERVICES, CORE | JT [...] [facility] | [address] | [place] [address] | | | ИРИНА ANTOINE | JT [...] | + + + + + | [facility] | [address] [facility] | [place] [address] | | | ARASH, ИРИНА | JT [...] EULOGIO CAL[facility]RES[facility] | [address] | [place] [address] | | | SERVICES, ИРИНА | JT [...] [facility] | [address] | [place], [place] | | | R[facility]O POINT OF CARE | [address] | [address] | | | TESTS | | | [...] E[facility]OGIO [facility] | [address] | [place], [place] | | | R[facility]ARDO [place] [facility] | [address] | [address] | | | TESTS | | | [...] EULOGIO on: 10/12/2017 8:10:02 AM PST by: [id number] | | + + + + + + + + | Performing | Address | City/State/Zipcode | Phone Number | | Organization | | | | + + + + + | [facility] - | [address] | [place] [address] | | | [place] | | | | + + + [...] | + + + + + | [facility] | [address] | [place] [address] | | | ИРИНА ANTOINE | JT [...] [facility] | [address] | [place] [address] | | | SERVICES, CORE | PARK [...] [facility] | [address] | [place] [address] | | | SERVICES, ИРИНА | JT [...] | [facility] | | considered for monitoring salvage determiner glycemic control in patients with: | LABORATORY [...] | fructosamine should be considered for monitoring snf glycemic | | | control in patients [...] | + + + + + | [facility] | [address] [facility] | [place] [address] | | | SERVICES, SPECIAL | JT [...] Performed At | + + + | [facility] | [facility] DEPT OF | | [facility] Adult Echocardiography | CARDIOLOGY | | Laboratory [address] [place] [address], | | | [place] [address] Pt Name: | | | RON MCKEON Study Date/Time 10/11/2017 / 11:47:35 | | | AMMRN: [id number] Most recent | | | prior: 03/30/2017Acc #: [id number] No. | | | previous echos: 4DOB: 1955 61 years Heart | | | Rate: 84 bpmHeight: 69.0 in | | | Blood Pressure: 115/68 mm/HgWeight: 196.0 | | | lb Gender: | | | MBSA: 2.05 m2 Order | | | ID: [id number] Stockroom Associate: Shahab Sutton [facility] | | | Referring Provider: Kimmy [...] | | | presents on transfer from [place] for consideration of complex PCI | | [...] | | Ao (prox) 3.70 cm 18.1 mm/m3Wfkacfxfjj of | | | chamber size and geometry is accomplished through the incorporation of | | | linear, volumetric, and indexed values Wall Scoring: Report | | | electronically signed by: [id number] Khurram Bedyoa MD (10/11/2017, | | | 12:59:49 PM) Final (Updated) | | | Final (Updated) | | + + + + + | Procedure Note | + + | Interface, Cardiology Results - 10/11/2017 1:00 PM [facility] | | [facility] Echocardiography Laboratory [address] [place] [address] | | [place], [place] [address] Pt Name: RON Chaudhary | | MIKE Study Date/Time 10/11/2017 / 11:47:35 AMMRN: [id number] Most | | recent prior: 03/30/2017Acc #: [id number] No. previous echos: 4DOB: | | 1955 61 years Heart Rate: 84 bpmHeight: 69.0 in Blood | | Pressure: 115/68 mm/HgWeight: 196.0 lb Gender: MBSA: | | 2.05 m2 Order ID: [id number] Stockroom Associate: Shahab Sutton RDReferring | | Provider: Kimmy [...] use disorder who presents on transfer from [place] | | for consideration of complex PCI [...] Ao (prox) | | 3.70 cm 18.1 mm/z7Bvlaquvwvu of chamber size and geometry is accomplished | | through the incorporation of linear, volumetric, and indexed values Wall Scoring: Report | | electronically signed by: [id number] Khurram Bedoya MD (10/11/2017, 12:59:49 PM) | [...] | | | |Report electronically signed by: [id number] Khurram Bedoya MD (10/11/2017, 12:59:49 | |PM) | | | | | | | | Final (Updated) | + + + + + + + | Performing | Address | City/State/Zipcode | Phone Number | | Organization | | | | + + + + + | [facility] | [address] | [place], [place] | | | CARDIOLOGY | [address] | [address] | | + + + + + X-RAY PORTABLE CHEST 1 VIEW (10/11/2017 11:24 AM PST) + + | Specimen | + + | | + + + + + | Narrative | Performed At | + + + | STUDY: LA CHEST 1 VIEW COMPARISON: 03/21/17. HISTORY: Cough. [...] Note | + + | Service Account, [email or web address] Res In Interface - 10/11/2017 1:51 PM PST STUDY: LA CHEST 1 | | VIEW COMPARISON: 03/21/17.HISTORY: [...] [facility] | [address] | [place] [address] | | | SERVICES, CORE | PARK [...] | + + + + + | [facility] | [address] | [place] [address] | | | ИРИНА ANTOINE | JT [...] | + + + + + | [facility] | [address] | [place] [address] | | | SERVICES, ИРИНА | JT [...] [facility] | [address] | [place] [address] | | | SERVICES, CORE | PARK [...] [facility] | [address] | [place] [address] | | | ИРИНА ANTOINE | JT [...] | + + + + + | [facility] | [address] [facility] | [place] [address] | | | SERVICES, CORE | PARK [...] + | [facility] | [address] | [place] [address] | | | SERVICES, CORE | JT [...] DEPT OF | [address] | [place], [place] | | | CARDIOLOGY | [address] | [address] | | + + + + + [...] + + | Coronary artery disease involving [place] coronary artery of [place] heart, angina | | presence unspecified | [...] of unspecified type of vessel, | | [place] si[place] or graft | + + | Paroxysmal atrial flutter (HCC) Atrial flutter | + + | Chronic systolic congestive heart failure (HCC) Chronic systolic heart failure | + + | Encounter for insertion of cardiac resynchronization therapy defibrillator (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
--- OUTSIDE RECORDS SUMMARY | ~2019-02-08 | XMS | Encounter Summary ---
Demographics + + + | Address | [address] | | | [place] [address] | + + + | Home Phone [...] [place] | | | | | [address] | | + + + + + Care Team Providers + +------+ + | Care Claims Service Representative Name | Role | Phone | + +------+ + | Young Haque DO | PCP | | + +------+ + Encounter Details +--------+ + + + + | Date | Type | Department | Care Team | Description | +--------+ + + + + | 03/19/ | Abstract | [facility] [place] [facility] Jenny, | | | 2018 | | CARDIOLOGY [address] | Hansa ASSISTANT DIRECTOR OF PUBLIC WORKS [address] | | | | | Speculator [place], | Speculator [place], | | | | | [place] [address] | [place] [address] | | | | | [phone] | [phone] | | | | | | | [...] [place] | | | | | | [address] | | | | | | | | +--------+ + + + + | 03/24/ | Procedure | Cardiology | | | | 2018 | visit | | | | +--------+ + + + + | 03/24/ | Office | Cardiology | Jenny, | | | 2018 | Visit | | ADARSH Santo [address] | | | | | | [place], | | | | | | [place] [address] | | | | | | [phone] | | | | | | | [...]
--- OUTSIDE RECORDS SUMMARY | ~2019-02-08 | XMS | Encounter Summary ---
Demographics + + + | Address | [address] | | | [place] [address] | + + + | Home Phone [...] | | | | | [place] [address] | | + + + + + Care Team Providers + +------+ + | Care Grinder Operator Tool Name | Role | Phone | + [...] | | 2018 | | Services at [facility] | [place], [place] | Exam | | | | [address] [facility] | [address] | | | | | [facility] | | | | | | Mailcode: [address] | | | | | | [facility] | | | | | | [place], [place] | | | | | | [address] | | | | | | [phone] | | | +--------+ + + + [...]
--- OUTSIDE RECORDS SUMMARY | ~2019-02-08 | XMS | Encounter Summary ---
Demographics + + + | Address | [address] | | | [place] [address] | + + + | Home Phone [...] [place] | | | | | [address] | | + + + + + Care Team Providers + +------+ + | Care Notch Grinder Name | Role | Phone | [...] | [address] | [address], [place] | (severe) (HCC) | | | | [place], [place] | [address] [place], [place] | (Primary Dx); Anemia | | | | [address] | [address] | in chronic kidney | | | | [phone] | | disease, unspecified | | | [...] upcoming nephrology appointment sent to: [facility] Everywhere 05/04/18 Binronically signed by Sharon Saldana [...] | | | | | | [address], [place] | | | | | | [address] [place] | | | | | | [address] | | | | | | | | +--------+ + + + + | 03/24/ | Procedure | Cardiology | | | | 2018 | visit | | | | +--------+ + + + + | 03/24/ | Office | Cardiology | Jenny, | | | 2018 | Visit | | ADARSH Santo [address] | | | | | | [place], | | | | | | [place] [address] | | | | | | [phone] | | | | | | | [...] 03/01/2019, Expires: | | | | (severe) ([facility]) | 01/27/2020 | + +--------+ + + | Parathyroid Hormone, Intact | Routin | Chronic kidney | Expected: | | | e | disease, stage IV | 03/01/2019, Expires: | | | | (severe) ([facility]) | 01/27/2020 | + +--------+ + + | Protein/Creatinine Ratio, Urine | Routin | Chronic kidney | Expected: | | | e | disease, stage IV | 03/01/2019, Expires: | | | | (severe) ([facility]) | 01/27/2020 | + +--------+ + + | Iron Profile | Routin | Chronic kidney | Expected: | | | e | disease, stage IV | 03/01/2019, Expires: | | | | (severe) ([facility]) | 01/27/2020 | | | | Anemia in chronic | | | | | kidney disease, | | | | | unspecified CKD | | | | | stage | | + +--------+ + + documented as of this encounter Visit Diagnoses + + | Diagnosis | + + | Chronic kidney disease, stage IV (severe) ([facility]) - Primary Chronic kidney disease, | | Stage IV (severe) | + + | Anemia in chronic kidney disease, unspecified CKD stage | + + documented in this encounter"
--- OUTSIDE RECORDS SUMMARY | ~2019-02-08 | XMS | Encounter Summary ---
Demographics + + + | Address | [address] | | | [place] [address] | + + + | Home Phone [...] | [place] | | | | | [address] | | + + + + + Care Team Providers + +------+ + | Care Still Worker Helper Name | Role | Phone | [...] | | | involving | [address] | [place] | | | | | [place] | [place] | [place] | | | | | coronary | [address] | [address] | | | | | artery of | Phone: | Phone: | | | | | [place] heart | [phone] | [phone] | | | | | without | Fax: | Fax: | | | | | angina | [phone] | [phone] | | | | | pectoris | | | + + + + + + + Encounter Details +--------+---------+ + + + | Date | Type | Department | Care Team | Description | +--------+---------+ + + + | 11/09/ | Office | [facility] | Randy Figueroa, | Coronary artery | | 2019 | Visit | [facility] | MD [address] | disease involving | | | | REHABILITATION [address] | [place], | [place] coronary | | | | [address] [place] | [place] [address] | artery of [place] | | | | [place] [address] | [phone] | heart without angina | | | | [phone] | | pectoris (Primary | | | [...] of this encounter Progress Jonah Coker-Cheri Kendrick, [employer] DRIVER - 11/09/2018 1000 PSTFormatting of this note might be diff erent from the original. [facility] CARDIAC REHABILITATION [address] [facility] [address] Cardiac Rehab Date: 11/09/2018 Patient Information Patient Name: Bob Will Date of : 1955 Age: 63 y.o. Encounter Diagnoses Code Name Primary? I25.10 Coronary artery disease involving [place] coronary artery of [place] heart without angina pectoris Yes Number of [...] | | | | | [address] [facility] | | | | | | [address] [place] | | | | | | [id number] | | | | | | | | +--------+ + + + + | 03/24/ | Procedure | Cardiology | | | 2018 | visit | | | | +--------+ + + + + | 03/24/ | Office | Cardiology | Jenny, | | | 2018 | Visit | | HansaADARSH weldon [address] | | | | | | [place], | | | | | | [place] [address] | | | | | | [phone] | | | | | | | | +--------+ + + + + documented as of this encounter Visit Diagnoses + + | Diagnosis | + + | Coronary artery disease involving [place] coronary artery of [place] heart without | | angina pectoris - Primary | + + documented in this encounter"
--- OUTSIDE RECORDS SUMMARY | ~2019-02-08 | XMS | Encounter Summary ---
Demographics + + + | Address | [address] | | | [place] [address] | + + + | Home Phone [...] | | | | | [place] [address] | | + + + + + Care Team Providers + +------+ + | Care Hand Glass Cutter Name | Role | Phone | [...] + | 10/16/ | Anesthesia | Cardiac Blind Eyeletter | Terry Garvin, | | | 2018 | Event | at [facility] [address] [facility] | [facility] [address] [facility] | | | | | [facility] | [facility] | | | | | [facility] | [place], [place] | | | | | [place], [place] | [address] | | | | | [address] | [phone] | | | | | [phone] | | | +--------+ + + + [...] | | | | (groin access for cathead worker) | RN | | +--------+ + + [...]
--- OUTSIDE RECORDS SUMMARY | ~2019-02-08 | XMS | Encounter Summary ---
Demographics + + + | Address | [address] | | | [place] [address] | + + + | Home Phone [...] | [place] | | | | | [address] | | + + + + + Care Team Providers + +------+ + | Care Pneumatic Drum Sander Name | Role | Phone | + [...] | | | involving | [address] | [place] | | | | | [place] | [place] | [place] | | | | | coronary | [address] | [address] | | | | | artery of | Phone: | Phone: | | | | | [place] heart | [phone] | [phone] | | | | | without | Fax: | Fax: | | | | | angina | [phone] | [phone] | | | | | pectoris | | | + + + + + + + Encounter Details +--------+---------+ + + + | Date | Type | Department | Care Team | Description | +--------+---------+ + + + | 12/02/ | Office | [facility] | Randy Figueroa, | Coronary artery | | 2019 | Visit | MED CTR [facility] | MD [address] [place] | disease involving | | | | REHABILITATION [address] | [place], | [place] coronary | | | | [address] [place] | [place] [address] | artery of [place] | | | | [place] [address] | [phone] | heart without angina | | | | [phone] | | pectoris (Primary | | | [...] note might be different from the orig [facility] CARDIAC REHABILITATION [address] [facility] [address] Cardiac Rehab Date: 12/02/2018 Patient Information Patient Name: Bob Will Date of : 1955 Age: 63 y.o. Encounter Diagnoses Code Name Primary? I25.10 Coronary artery disease involving [place] coronary artery of [place] heart without angina pectoris Yes Z98.61 Post [...] | 03/08/ | Office | Nephrology | [facility], | | | 2018 | Visit | | ADARSH [address] | | | | | | [address] , [facility] | | | | | | [address] [place] | | | | | | [address] | | | | | | | | +--------+ + + + + | 03/24/ | Procedure | Cardiology | | | | 2018 | visit | | | | +--------+ + + + + | 03/24/ | Office | Cardiology | Jenny, | | | 2018 | Visit | | ADARSH Santo [address] | | | | | | [place], | | | | | | [place] [address] | | | | | | [phone] | | | | | | | | +--------+ + + + + documented as of this encounter Visit Diagnoses + + | Diagnosis | + + | Coronary artery disease involving [place] coronary artery of [place] heart without | | angina pectoris - Primary | + + | Post PTCA Postsurgical percutaneous transluminal coronary angioplasty status | + + documented in this encounter"
--- OUTSIDE RECORDS SUMMARY | ~2019-02-08 | XMS | Encounter Summary ---
Demographics + + + | Address | [address] | | | [place] [address] | + + + | Home Phone [...] | [place] | | | | | [address] | | + + + + + Care Team Providers + +------+ + | Care Aboriginal Community Council Member Name | Role | Phone | [...] | | | involving | [address] | [place] | | | | | [place] | [place] | [place] | | | | | coronary | [address] | [address] | | | | | artery of | Phone: | Phone: | | | | | [place] heart | [phone] | [phone] | | | | | without | Fax: | Fax: | | | | | angina | [phone] | [phone] | | | | | pectoris | | | + + + + + + + Encounter Details +--------+---------+ + + + | Date | Type | Department | Care Team | Description | +--------+---------+ + + + | 12/02/ | Office | [facility] | Randy Figueroa, | Coronary artery | | 2019 | Visit | MED CTR CARDIAC | MD [address] [place] | disease involving | | | | REHABILITATION [address] | [place], | [place] coronary | | | | [address] [place] | [place] [address] | artery of [place] | | | | [place] [address] | [phone] | heart without angina | | | | [phone] | | pectoris (Primary | | | [...] might be different from the orig [facility] CARDIAC REHABILITATION [address] [facility] [address] Cardiac Rehab Date: 12/02/2018 Patient Information Patient Name: Bob Will Date of : 1955 Age: 63 y.o. Encounter Diagnoses Code Name Primary? I25.10 Coronary artery disease involving [place] coronary artery of [place] heart without angina pectoris Yes Z98.61 [...] | 03/08/ | Office | Nephrology | [facility], | | | 2018 | Visit | | ADARSH [address] | | | | | | [address] , [facility] | | | | | | [address] [place] | | | | | | [address] | | | | | | | | +--------+ + + + + | 03/24/ | Procedure | Cardiology | | | | 2018 | visit | | | | +--------+ + + + + | 03/24/ | Office | Cardiology | Jenny, | | | 2018 | Visit | | ADARSH Santo [address] | | | | | | [place], | | | | | | [place] [address] | | | | | | [phone] | | | | | | | | +--------+ + + + + documented as of this encounter Visit Diagnoses + + | Diagnosis | + + | Coronary artery disease involving [place] coronary artery of [place] heart without | | angina pectoris - Primary | + + | Post PTCA Postsurgical percutaneous transluminal coronary angioplasty status | + + documented in this encounter"
--- OUTSIDE RECORDS SUMMARY | ~2019-02-08 | XMS | Encounter Summary ---
Demographics + + + | Address | [address] | | | [place] [address] | + + + | Home Phone [...] | | | | | [place] [address] | | + + + + + Care Team Providers + +------+ + | Care Makeup Instructor Name | Role | Phone | [...] | | | 2017 | Event | [place] | MD [address] [facility] | | | | | Admitting Desk | [facility] | | | | | Located on the | [place], [place] | | | | | [address] | [address] | | | | | [facility] | [phone] | | | | | [place], [place] | | | | | | [address] | | | +--------+ + + + [...] 03/20/17; | Latricia Brewster RN | Maria Estehr Browning RN | | | [address] | [...] | | | S, | | | [place] | | | J | | | [...] 12:01 | | | | | Starting [facility] 03/19/17 at 1201, | | PM PDT | | | | | Until [facility] 03/19/17 at 1244 | | | | | | + +-------+ +---------+---+---+ +---+---+ | | | +---+---+ + +---------+ + +--------+---+ | propofol (DIPRIVAN) injection | New Bag | 03/19/20 | 30 | 20.34 | | | INTRAPROCEDURE CONTINUOUS PRN, | | 17 9:26 | mcg/kg/m | mL/hr | | | Starting [facility] 03/19/17 at 0926, | | AM PDT | in | | | | Until [facility] 03/19/17 at 1244 | | | | [...]
--- OUTSIDE RECORDS SUMMARY | ~2019-02-08 | XMS | Encounter Summary ---
Demographics + + + | Address | [address] | | | [place] [address] | + + + | Home Phone | | + + + | Preferred Language | Unknown | + + + | Marital Status | | + + + | Voodoo Affiliation | NRP | + + + [...] | | | | | [place] [address] | | + + + + + Care Team Providers + +------+ + | Care Appliances Sample Maker Name | Role | Phone | [...] | | | 2017 | Event | [facility] | MD [address] [facility] | | | | | Admitting Desk | [facility] | | | | | Located on the | [place], [place] | | | | | [address] | [address] | | | | | [facility] | [phone] | | | | | [place], [place] | | | | | | [address] | | | +--------+ + + + [...] 12:01 | | | | | Starting [facility] 03/19/17 at 1201, | | PM PDT | | | | | Until [facility] 03/19/17 at 1244 | | | | | | + +-------+ +---------+---+---+ +---+---+ | | | +---+---+ + +---------+ + +--------+---+ | propofol (DIPRIVAN) injection | New Bag | 03/19/20 | 30 | 20.34 | | | INTRAPROCEDURE CONTINUOUS PRN, | | 17 9:26 | mcg/kg/m | mL/hr | | | Starting [facility] 03/19/17 at 0926, | | AM PDT | in | | | | Until [facility] 03/19/17 at 1244 | | | | [...]
--- OUTSIDE RECORDS SUMMARY | ~2019-02-08 | XMS | Encounter Summary ---
Demographics + + + | Address | [address] | | | [place] [address] | + + + | Home Phone [...] | | | | | [place] [address] | | + + + + + Care Team Providers + +------+ + | Care Ambulatory Nurse Name | Role | Phone | [...] David | | | | | at [facility] | [facility] | | | | | [address] | [place] [address] | | | | | [facility] | | | | | | Mailcode: [id number] [address] | | | | | | [facility] | | | | | | Building [place], | | | | | | [place] [address] | | | | | | [phone] | | | +--------+ + + + [...]
--- OUTSIDE RECORDS SUMMARY | ~2019-02-08 | XMS | Encounter Summary ---
Demographics + + + | Address | [address] | | | [place] [address] | + + + | Home Phone [...] | | | | | [place] [address] | | + + + + + Care Team Providers + +------+ + | Care B2B Sales Consultant Name | Role | Phone [...] | | | | | involving | [place], [place] | | | | | | left main | [address] | | | | | | coronary | Phone: | | | | | | artery (HCC) | [phone] | | | | | | Procedures | Fax: | | | | | | | [phone] | | | | | | OCCUPATIONAL [...] | | | elevation | [address] [facility] | | | | | | myocardial | [address] | | | | | | infarction | Rd | | | | | | involving | [place], [place] | | | | | | left main | [address] | | | | | | coronary | Phone: | | | | | | artery (HCC) | [phone] | | | | | | Procedures | Fax: | | | | | | PHYSICAL | [phone] | | | | | | THERAPY [...] | | | | CONSULT TO | [facility] | Cardiac Rehab | | | | | CARDIAC | [address] | [facility] | | | | | [facility] | ANTHONY [address] | [address] | | | | | | [address] | Madonna Richardson, | | | | | | [place], [place] | [place] [address] | | | | | | [address] | Phone: | | | | | | Phone: | [phone] | | | | | | [phone] | Fax: | | | | | | Fax: | [phone] | | | | | | [phone] | | +--------+--------+ + + + + [...] | | | | | Ave | [place], | | | | | | [place], [place] | [place] [address] | | | | | | [address] | Phone: | | | | | | Phone: | [phone] | | | | | | [phone] | Fax: | | | | | | Fax: | [phone] | | | | | | [phone] | | +--------+--------+ + + + + [...] | | | 04/02/ | | HOSPITAL [place], | [place], [place] | | | 2016 | | [place] [address] | [address] | | | | | [phone] | [phone] | | | | | | | | | | | | Rolly Reeves, | | | | | | [address] | | | | | | [address] [place], [place] | | | | | | [address] | | | | | | [phone] | | | | | | | | | | | | Terry Ochoa MD | | | | | | [address] | | | | | | [place], [place] | | | | | | [address] | | | | | | [phone] | | | | | | | | | | | | Monika Cooper, | | | | | | Rehana Downey MD,MPH [address] | | | | | [address] | | | | | | [address] [place], [place] | | | | | | [address] | | | | | | [phone] | | | | | | | | | | | | Ariana Bose, | | | | | | DO [address] | | | | | | [address] | | | | | | [place], [place] | | | | | | [address] | | | | | | [phone] | | | | | | | | | | | | Aria Rojas MD | | | | | | [address] | | | | | | Tabitha [place], | | | | | | [place] [address] | | | | | | [phone] | | | | | | | [...] 2:26 PM PDT CLINICAL HOSPITALIST DISCHARGE SUMMARY [facility] Discharging Provider: Aria Rojas MD Discharging [...] follow up ludmila miller with a local highway construction inspector in [place]. #Acute cardiogenic shock in the setting ofSTEMI [...] 44 to 32 during first day at [facility] , with addition decline to [...] (noted on o utside records). Patient on [place] 10/325 q8 as outpatient. Was receiving scheduled [...] then take 7.5 mg (one and one-h correction tablets) daily starting 04/03/2017 Indications: JAVON thrombus, [...] Fax Number [facility] Yes [address] [place] [address] Medina Roger RN 04/02/2017 11:31 Medina Roger RN, 04/02/2017 11:28 AM: Spoke with Latricia, 7 day auth # [id number] has been provided. Contacted Tanisha at facility , arranging anticipated medicaid transport by stretcher at 2 pm today. Spoke with patient and souse concerning dc; they are both in agreement. Medina Roger, RN, 04/02/2017 9:20 AM: Contacted Latriciabettina Landry [phone] referencing auth# for SNF placement. Medina Roger RN, 04/01/2017 11:42 AM: Spoke with Malathi [phone], at facility admissions. Patient is accepted to facility. Prov ided information for information senior sourcing manager with [employer] Latricia Landry [phone], Tanisha greco ill pursue auth and get back to me. F&MS working with patient and family to add Medicaid ser vices to benefits. When added patient will have travel benefit. CM contacted Shahab Holman re [employer] [facility] training. Tamia Van, RN, 03/30/2017 1:21 PM: Received VM from Emily Terrell CM with [facility] to send referral to this location . Referral made, awaiting response. Follow Up: Schedule the following appointment(s) when you get home Follow up with [facility] . Specialties: Retirement Facility, Intermediate Care Facility Contact information [address] [place] [address] Follow up with LAUREN CHESTER MD. Go on 04/07/2017. Specialty: Cardiology Why: at 8:30 AM to establish Cardiology follow up Contact information [facility] [address] [address] Aria Rojas MD Division of Hospital Medicine [...] and chronic pain who was transferred to [facility] on 03/15 s/p STEMI with [...] will need Life Vest follow up with highway construction inspector in [place] on discharge - appr eciate cardiology assistance [...] hematoma, but possibly some candidal infection/intertrigo. On [place] 10/325 Q8H as an outp atient. -Continue [...] 44 to 32 during first day at [facility], with addition decline to 24 [...] Aria Rojas MD Division of Hospital Medicine [facility] Pager [phone] I spent 36 minutes on the patient [...] and chronic pain who was transferred to [facility] on 03/15 s/p STEMI with [...] will need Life Vest follow up with highway construction inspector in [place] on discharge - appr iate cardiology assistance [...] hematoma, but possibly some candidal infection/interrigo. On [place] 10/ Q8H as an outpa tient. -Continue [...] discharge. -CM looking for skilled placement in [place] near patient's home; appreciate assistance At risk for malnutrition Very little PO intake but reportedly improving. Previously had dobhoff feeding tube in the CVICU.Nutrition assistance appreciated. -Calorie count ongoing -Encouraging PO intake Normocytic anemia Hct dropped abruptly from 44 to 32 during first day at [facility], with addition decline to 24 [...] Aria Rojas MD Division of Hospital Medicine [facility] Pager [phone] I spent 36 minutes on the patient encounter today, >50% in counseling of the patient's on the above plan of care and in coordination of care on the arizmendi with nursing and Heart [facility]. Ariana Ivy DO - 03/30/2017 5:49 PM PDT CLINICAL HOSPITALIST SERVICE PROGRESS NOTE PATIENT'S NAME/MRN: Ron Mckeon/[id number] HOSPITAL DAY: #15 24-HOUR EVENTS & SUBJECTIVE: -patient complained of typical anginal chest pain and had STEMI code last night, anterior S T elevation on serial EKGs, given 325mg ASA, started on heparin drip (had been turned off fo r JAVON thrombus yesterday afternoon with warfarin therapeutic), patient went to the poultry hatchery laborer -on angiography, interventionalists noted "patent stent [...] 5 mg, 5 mg, oral, BID, Ariana oBse DO, 5 mg at 7 0932 melatonin [...] 7.5 mg, 7.5 mg, oral, QPM, Ariana Batchelor, OBJECTIVE: Last Vitals: BP 101/56 | Pulse [...] daily - Patient will follow up with highway construction inspector in [place] on discharge; appreciate cardiolo adriana assistance with [...] stenosis (noted on o utside records, on [place] q8 as outpatient) Improved today -continue oxycodone [...] 44 to 32 during first day at [facility] , with addition decline to [...] [facility] bed Ariana Bose DO [employer] Supervisorfuneral home location manager Clinical Hospitalist and Medicine Teaching Service Division of Hospital Medicine [facility] Pager [phone] [facility] DEPARTMENT: Hosp- [phone] Place of Service: Date of Service: 03/26/2017 CSN: [id number] Modifiers:GC Resident Involved: Yes Suggested CPT: 02321 Subsequent Visit Detailed/High complexity 35 min Cristi [...] given continued elevated Tn, patient's significant recent MT, we activated the poultry hatchery laborer. Patient received 325 mg ASA at bedside and was briefly on heparin which has since been disc ontinued. Per cardiology will continue daily 81 mg ASA, plavix and warfarin. Continue to t rend troponins as well. I spent 30 minutes with this patient with >50% of the time evaluating patient at the [facility] on numerous occasions, evaluating studies and coordinating care w/ cardiology.Electronical ly signed by Ivette Chaudhry MD at 03/30/2017 6:24 AM Gerson Oseguera MD - 03/30/2017 4:31 AM PDTCardiology Preliminary Procedure Note (Full report to follow) Primary Care Provider: Jamal Guerrero MD Referring Provider: No Referring Provider Per Patient Rock Drill Operator Staff: Katarina Ngo M.D. Procedure(s): Coronary [...] None Complications: None Hemostasis: Manual compression in poultry hatchery laborer. Site: [facility] Recommendations: Patient Status: Inpatient Usual post cath care. Ariana Ivy D O - 03/29/2017 9:30 AM PDT CLINICAL HOSPITALIST SERVICE PROGRESS NOTE PATIENT'S NAME/MRN: Ron Mckeon/[id number] HOSPITAL DAY: #14 24-HOUR EVENTS & SUBJECTIVE: [...] stenosis (noted on o utside records, on [place] 10 q8 as outpatient) -continue oxycodone 10mg [...] 44 to 32 during first day at [facility] , with addition decline to [...] arm, midline left arm Ariana Bose DO [employer] Supervisorfuneral home location manager Clinical Hospitalist and Medicine Teaching Service Division of Hospital Medicine [facility] Pager [phone] [facility] DEPARTMENT: Hosp- [phone] Place of Service: - Date of Service: 03/26/2017 CSN: [id number] Modifiers:GC Resident Involved: Yes Suggested CPT: 31732 Subsequent Visit Detailed/High complexity 35 min Ariana Ivy DO - 03/28/2017 8: 06 AM PDT CLINICAL HOSPITALIST SERVICE PROGRESS NOTE PATIENT'S NAME/MRN: Ron Mckeon/[id number] HOSPITAL DAY: #13 24-HOUR EVENTS & SUBJECTIVE: [...] stenosis (noted on o utside records, on [place] q8 as outpatient) Improving L groin pain [...] 44 to 32 during first day at [facility] , with addition decline to [...] arm, midline left arm Ariana Bose DO [employer] Supervisorfuneral home location manager Clinical Hospitalist and Medicine Teaching Service Division of Hospital Medicine [facility] Pager [phone] [facility] DEPARTMENT: Hosp- [id number] Place of Service: - Date of Service: 03/26/2017 CSN: [id number] Modifiers:GC Resident Involved: Yes Suggested CPT: 20116 Subsequent Visit Detailed/High complexity 35 min Ariana [...] 44 to 32 during first day at [facility] , with addition decline to [...] arm, midline left arm Ariana Bose DO [employer] Supervisorfuneral home location manager Clinical Hospitalist and Medicine Teaching Service Division of Hospital Medicine [facility] Pager [phone] [facility] DEPARTMENT: Hosp- [phone] Place of Service: - Date of Service: 03/26/2017 CSN: [id number] Modifiers:GC Resident Involved: Yes Suggested CPT: 90243 Subsequent Visit Detailed/High complexity 35 min Chapis [...] 44 to 32 during first day at [facility] , with addition decline to [...] arm, midline left arm Ariana Bose DO [employer] Supervisorfuneral home location manager Clinical Hospitalist and Medicine Teaching Service Division of [facility] Medicine [facility] Pager [phone] [facility] DEPARTMENT: Hosp- [phone] Place of Service: - Date of Service: 03/26/2017 CSN: [id number] Modifiers:GC Resident Involved: Yes Suggested CPT: 83937 Subsequent Visit Detailed/High complexity 35 min Wan Cano MD - 03/25/2017 3:07 PM PDT . Cardiovascular Intensive Care Unit Attending Progress Note CVICU D2 Assigned #[id number] ICU Admission Reason Most Recent Value ICU [...] artery. ANY X2 placed in outs surinder poultry hatchery laborer along with IABP. Arrived in cardiogenic [...] Pager Mellisa Haji MD Admitting Provider Cardiology 82286 Zelalem Del Toro MD ICU PM Attending Anesthesiology 63753 Code Status Code Status Full Code The Advanced Care Note for this patient can be found under the notes tab in chart review. Quality section Reardon necessity reviewed: Hourly/Accurate measurement of urinary output for clinical manage ment of critically ill patients Wan Deleon MD, JOHN, ERVIN Cardiovascular Intensive Care Unit [address] [place], [place] [address] I have spent a total of 38 [...] xceptions/additions as noted. Date of Service: 03/25/2017 [facility] DEPARTMENT: ANE ICU CARDIAC Place of Service:- Inpatient CSN: [id number] Suggested Modifier: GC - Resident Involved Suggested CPT: TO HATCHERY LABORER Jose Ramon Khan MD - 03/24/2017 10:54 AM PDT . Cardiovascular Intensive Care Unit Team Progress Note CVICU D2 Assigned #[id number] ICU Admission Reason Most Recent Value ICU [...] artery. ANY X2 placed in outs surinder poultry hatchery laborer along with IABP. Arrived in cardiogenic [...] & Plan 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 Was shocked 17 times Targeted temperature [...] Patient was difficult intubation at outside poultry hatchery laborer. -secretions improving, cough strong -s/p 7 [...] Pager Mellisa Haji MD Admitting Provider Cardiology 41338 Zelalem Del Toro MD ICU PM Attending Anesthesiology 65551 The Advanced Care Note for this patient [...] Ramon Alvarado MD Author:Jose Ramon Alvarado MD [place] [address] [place] [address]Xmnfwounnpeoan signed by Jose Ramon Alvarado MD at 03/24/2017 11:00 AM Wan Cano MD - 03/24/2017 9:47 AM PDTFormatting of this note might be diff erent from the original. Cardiovascular Intensive Care Unit Attending Progress Note CVICU D2 Assigned #[id number] ICU Admission Reason Most Recent Value ICU [...] artery. ANY X2 placed in outs surinder poultry hatchery laborer along with IABP. Arrived in cardiogenic [...] Pager Mellisa Haji MD Admitting Provider Cardiology 59642 Zelalem Del Toro MD ICU PM Attending Anesthesiology 59822 Code Status Code Status Full Code The Advanced Care Note for this patient can be found under the notes tab in chart review. Quality section Reardon necessity reviewed: Hourly/Accurate measurement of urinary output for clinical manage ment of critically ill patients Wan Deleon MD, JOHN, ERVIN Cardiovascular Intensive Care Unit [address] [place] [address] I have spent a total of 42 [...] xceptions/additions as noted. Date of Service: 03/24/2017 [facility] DEPARTMENT: [facility] ICU CARDIAC Place of Service:- Inpatient CSN: [id number] Suggested Modifier: GC - Resident Involved Suggested CPT: TO HATCHERY LABORER Author:Wan Deleon Md, [address] [id number] signed by Wan Deleon MD at 03/24/2017 9:49 AM Tamia De La Paz PA-C - 03/23/2017 11:54 PM PDTFormatting of this note might be diff erent from the original. Cardiovascular Intensive Care Unit Clinical Update Note Team: D2 Team Pager: [phone] Attending: Katey Pt Name: Ron Mckeon ID: Abbreviated HPI Abbreviated HPI / Daily Assessment Ron Mckeon is a 61 year old man with acute cardiogenic shock in the setting of acu te STEMI from thrombosed left main coronary artery. Initially had lesion in proximal LAD and distal LM, but then acutely thrombosed his left main coronary artery. ANY X2 placed in outs surinder poultry hatchery laborer along with IABP. Arrived in cardiogenic [...] Unit Team Progress Note CVICU D2 Assigned #[id number] ICU Admission Reason Most Recent Value ICU [...] artery. ANY X2 placed in outs surinder poultry hatchery laborer along with IABP. Arrived in cardiogenic [...] dc'd 03/23 STEMI (ST elevation myocardial infarction) ([facility]) Yes Overview Xience Alpine 3.0 [...] & Plan 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 Was shocked 17 times Targeted temperature [...] Patient was difficult intubation at outside poultry hatchery laborer. -fevering nightly, cultures negative, WBC stable [...] Pager Mellisa Haji MD Admitting Provider Cardiology 75980 The Advanced Care Note for this patient [...] Ramon Alvarado MD Author:Jose Ramon Alvarado MD [address] [address]Ooawwfiihmqapv signed by Jose Ramon Alvarado MD at 03/23/2017 11:41 AM PDTWan Deleon MD - 03/23/2017 9:51 AM PDTFormatting of this note might be diff erent from the original. Cardiovascular Intensive Care Unit Attending Progress Note CVICU D2 Assigned #[id number] ICU Admission Reason Most Recent Value ICU [...] artery. ANY X2 placed in outs surinder poultry hatchery laborer along with IABP. Arrived in cardiogenic [...] Pager Mellisa Haji MD Admitting Provider Cardiology 34956 Code Status Code Status Full Code The Advanced Care Note for this patient can be found under the notes tab in chart review. Quality section A-Line necessity reviewed: Plan to DC today Reardon necessity reviewed: Hourly/Accurate measurement of urinary output for clinical manage ment of critically ill patients Currently at risk for: delirium, stroke, MT, arrythmia, tamponade, PE, respiratory failure, ARDS, aspiration, AYLIN / ARF, coagulopathy, DVT, stress ulcers, sepsis, BONIFACIO, electrolyte per turbations, malnutrition, deconditioning and decubiti. Wan Deleon MD, JOHN, ERVIN Cardiovascular Intensive Care Unit [facility] [place] [address] I have spent a total of 44 [...] xceptions/additions as noted. Date of Service: 03/23/2017 [facility] DEPARTMENT: [facility] ICU CARDIAC Place of Service:- Inpatient CSN: [id number] Suggested Modifier: GC - Resident Involved Suggested CPT: TO HATCHERY LABORER Tamia De La Paz PA-C - 03/22/2017 7:58 PM PDT . Cardiovascular Intensive Care Unit Clinical Update Note Team: D2 Team Pager: [phone] Attending: Abdulaziz Merrill Name: Ron Mckeon ID: [...] Unit Attending Progress Note CVICU D2 Assigned #[id number] ICU Admission Reason Most Recent Value ICU [...] long tobacco abuse history, presenting with acute MT and STEMI, resu ltant cardiogenic shock refractory [...] Pager Mellisa Haji MD Admitting Provider Cardiology 01329 Code Status Code Status Full Code Quality section A-Line necessity reviewed: Frrh-ts-rltv blood pressure monitoring Reardon necessity reviewed: Hourly/Accurate [...] Date of Service: 03/22/2017 Author:Anurag Ashby MD [address] [id number] signed by Anurag Ashby MD at 03/22/2017 11:07 AM P Macho Sellers MD - 03/22/2017 11:00 AM PDT Cardiovascular Intensive Care Unit Team Progress Note CVICU D2 Assigned #[id number] ICU Admission Reason Most Recent Value ICU [...] & Plan 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 Was shocked 17 times Targeted temperature [...] Patient was difficult intubation at outside poultry hatchery laborer. -vanc zosyn stopped 03/17 -fever 38.3 [...] Pager Mellisa Haji MD Admitting Provider Cardiology 26294 This patient does not have an Advanced Care Note for this Admission. Please use the Goal of care section of your ICU navigator to document the advanced care discussion. Quality section A-Line necessity reviewed: Bppo-pn-xrwg blood pressure monitoring Reardon necessity reviewed: Hourly/Accurate measurement of urinary output for clinical manage ment of critically ill patients FAST HUG Feeding: Tube Feeds: Replete @ 55 mL/hr Analgesia: APAP, hydromorphone PRN Sedation: N/A Thromboprophylaxis: Heparin infusion Head of Bed: Head of Bed >30 degrees Ulcer Prophylaxis: Famotidine Glycemic Control: insulin infusion Created by Macho Gaytan MD Author:Macho Gaytan MD [address] [address]Umvcagploonpre signed by Macho Gaytan MD at 03/23/2017 12:35 PM PDTT Tamia leon PA-C - 03/21/2017 7:02 PM PDTFormatting of this note might be different f rom the original. Cardiovascular Intensive Care Unit Clinical Update Note Team: D2 Team Pager: [phone] Attending: Abdulaziz Merrill Name: Ron Mckeon ID: [...] Opens eyes, nods head. Follows commands for certified medical asst and Plan: Hospital Problems Priority POA Head/Neck [...] data and the recent imaging availabl e. EUDIN Alas PA-C Macho Perkins MD - 03/21/2017 1:37 PM PDT Cardiovascular Intensive Care Unit Team Progress Note CVICU D2 Assigned #[id number] ICU Admission Reason Most Recent Value ICU [...] & Plan 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 Was shocked 17 times Targeted temperature [...] Patient was difficult intubation at outside poultry hatchery laborer. -vanc zosyn stopped 03/17 -fever 38.3 [...] Pager Mellisa Haji MD Admitting Provider Cardiology 55725 This patient does not have an Advanced Care Note for this Admission. Please use the Goal of care section of your ICU navigator to document the advanced care discussion. Quality section A-Line necessity reviewed: Pacx-vr-mnib blood pressure monitoring CVC necessity reviewed: Hemodynamic [...] by Macho Gaytan MD Author:Macho Gaytan MD [address] [address]Awptdyurmpdflt signed by Macho Gaytan MD at 03/21/2017 1:43 PM Anurag Paredes MD - 03/21/2017 12:22 PM PDT Cardiovascular Intensive Care Unit Attending Progress Note CVICU D2 Assigned #[id number] ICU Admission Reason Most Recent Value ICU [...] long tobacco abuse history, presenting with acute MT and STEMI, resu ltant cardiogenic shock refractory [...] Pager Mellisa Haji MD Admitting Provider Cardiology 94114 Code Status Code Status Full Code Quality section A-Line necessity reviewed: Gwxl-ra-clms blood pressure monitoring CVC necessity reviewed: Plan [...] Date of Service: 03/21/2017 Author:Anurag Ashby MD [address] [address] [place] [address]Hzelelqrzqogwg signed by Anurag Ashby MD at 03/21/2017 12:22 PM P Jose Ramon Coburn MD - 03/20/2017 12:36 PM PDTFormatting of this note might be differen t from the original. Cardiovascular Intensive Care Unit Team Progress Note CVICU D2 Assigned #[id number] ICU Admission Reason Most Recent Value ICU [...] & Plan 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 Was shocked 17 times Targeted temperature [...] Patient was difficult intubation at outside poultry hatchery laborer. -vanc zosyn stopped 03/17 -fever 38.3 [...] treatment team members Provider Role Specialty Pager Mlelisa Haji MD Admitting Provider Cardiology 97689 Quality section A-Line necessity reviewed: Zyrs-ua-bupv blood pressure monitoring CVC necessity reviewed: Hemodynamic [...] Ramon Alvarado MD Author:Jose Ramon Alvarado MD [address] [id number] signed by Jose Ramon Alvarado MD at 03/20/2017 12:49 PM PDTMoulton, Anurag Soni MD - 03/20/2017 12:18 PM PDTFormatting of this note might be differen t from the original. Cardiovascular Intensive Care Unit Attending Progress Note CVICU D2 Assigned #[id number] ICU Admission Reason Most Recent Value ICU [...] long tobacco abuse history, presenting with acute MT and STEMI, resu ltant cardiogenic shock refractory [...] Pager Mellisa Haji MD Admitting Provider Cardiology 59309 Code Status Code Status Full Code Quality section A-Line necessity reviewed: Djxg-nk-fjpr blood pressure monitoring CVC necessity reviewed: Medication [...] Date of Service: 03/20/2017 Author:Anurag Ashby MD [address] [address] [place] [address]Sqtdqbqslectwj signed by Anurag Ashby MD at 03/20/2017 12:18 PM P Raul Conte MD - 03/19/2017 11:01 PM PDTFormatting of this note might be different fro m the original. Cardiovascular Intensive Care Unit Attending Progress Note CVICU D2 Assigned #[id number] ICU Admission Reason Most Recent Value ICU [...] long tobacco abuse history, presenting with acute MT and STEMI, resu ltant cardiogenic shock refractory [...] Pager Mellisa Haji MD Admitting Provider Cardiology 01388 Code Status Code Status Full Code Quality section A-Line necessity reviewed: Nzpx-gg-wtec blood pressure monitoring CVC necessity reviewed: Hemodynamic [...] Date of Service: 03/19/2017 Author:Raul Wei MD [place] [address] Jose Ramon Rodriguez MD - 03/19/2017 4:49 PM PDT Cardiovascular Intensive Care Unit Team Progress Note CVICU D2 Assigned #[id number] ICU Admission Reason Most Recent Value ICU [...] & Plan 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 Was shocked 17 times Targeted temperature [...] Patient was difficult intubation at outside poultry hatchery laborer. -vanc zosyn stopped 03/17 -fever 38.3 [...] Pager Mellisa Haji MD Admitting Provider Cardiology 60152 Quality section A-Line necessity reviewed: Hrcg-me-xtva blood pressure monitoring CVC necessity reviewed: Hemodynamic monitoring Reardon necessity reviewed: Hourly/Accurate measurement of urinary output for clinical manage ment of critically ill patients FAST HUG Feeding: TFs Analgesia: multimodal Sedation: propofol Thromboprophylaxis: Heparin infusion Head of Bed: Head of Bed >30 degrees Ulcer Prophylaxis: protonix Glycemic Control: insulin infusion Created by Jose Ramon Alvarado MD Author:Jose Ramon Alvarado MD [address] [phone] signed by Jose Ramon Alvarado MD at 03/19/2017 4:54 PM Lee Fernandez MD - 03/19/2017 2:22 PM PDTFormatting of this note might be different fr om the original. . Extracorporeal Life Support Service Daily Progress Note Pager #[phone] Type: Veno-Arterial (CPT 33543 [place] [address]) Date of insertion: 03/15/2017 Diagnosis:Cardiogenic shock Dressing [...] Unit Attending Progress Note CVICU D2 Assigned #[id number] ICU Admission Reason Most Recent Value ICU [...] long tobacco abuse history, presenting with acute MT and STEMI, resu ltant cardiogenic shock refractory [...] Pager Mellisa Haji MD Admitting Provider Cardiology 57539 Code Status Code Status Full Code Quality section A-Line necessity reviewed: Okrf-ig-dkuo blood pressure monitoring CVC necessity reviewed: Medication [...] Date of Service: 03/19/2017 Author:Anurag Ashby MD [address] [address]Lcirvlqlertafe signed by Anurag Ashby MD at 03/19/2017 2:17 PM P Jose Ramon Coburn MD - 03/18/2017 12:56 PM PDTFormatting of this note might be differen t from the original. 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 Was shocked 17 times Targeted temperature [...] Patient was difficult intubation at outside poultry hatchery laborer. -vanc zosyn stopped today Abnormal CK [...] Pager Mellisa Haji MD Admitting Provider Cardiology 57513 Quality section A-Line necessity reviewed: Ogcs-cm-kvvp blood pressure monitoring CVC necessity reviewed: Hemodynamic monitoring Reardon necessity reviewed: Hourly/Accurate measurement of urinary output for clinical manage ment of critically ill patients FAST HUG Feeding: trickle feeds Analgesia: multimodal Sedation: propofol Thromboprophylaxis: Heparin infusion Head of Bed: Head of Bed >30 degrees Ulcer Prophylaxis: nexium Glycemic Control: insulin infusion Created by Jose Ramon Alvarado MD Author:Jose Ramon Alvarado MD [address] [address]Rczqeqenzfspqz signed by Jose Ramon Alvarado MD at 03/18/2017 1:27 PM PDTMoulton, Anurag Soni MD - 03/18/2017 11:56 AM PDTFormatting of this note might be differen t from the original. Cardiovascular Intensive Care Unit Attending Progress Note CVICU D2 Assigned #[id number] ICU Admission Reason Most Recent Value ICU [...] long tobacco abuse history, presenting with acute MT and STEMI, resu ltant cardiogenic shock refractory [...] Pager Mellisa Haji MD Admitting Provider Cardiology 52196 Code Status Code Status Full Code Quality section A-Line necessity reviewed: Dlkz-zj-bjis blood pressure monitoring CVC necessity reviewed: Medication [...] Date of Service: 03/18/2017 Author:Anurag Ashby MD [address] [address]Pycbzqbeiohosj signed by Anurag Ashby MD at 03/18/2017 11:59 AM Lee Prince MD - 03/18/2017 11:37 AM PDTFormatting of this note might be different from nissa suh original. . Extracorporeal Life Support Service Daily Progress Note Pager #[phone] Type: Veno-Arterial (CPT 68139 [place] 260[address]) Diagnosis:Cardiogenic shock Dressing changed: no Dressing Changed [...] Life Support Service Daily Progress Note Pager #[phone] Type: Veno-Arterial (CPT 02391 [place] 38[address]) Date of insertion: 03/15/2017 Diagnosis:Cardiogenic shock Dressing [...] Unit Attending Progress Note CVICU D2 Assigned #[id number] ICU Admission Reason Most Recent Value ICU [...] long tobacco abuse history, presenting with acute MT and STEMI, resu ltant cardiogenic shock refractory [...] Pager Mellisa Haji MD Admitting Provider Cardiology 62384 Quality section A-Line necessity reviewed: Btns-sb-iuqg blood pressure monitoring CVC necessity reviewed: Rapid [...] Date of Service: 03/17/2017 Author:Raul Wei MD [address] [address] [place] [address]Krajhewrltcivn signed by Raul Wei MD at 03/17/2017 9:20 PM PD Anurag Kaba MD - 03/17/2017 1:58 PM PDTFormatting of this note might be different fro m the original. Cardiovascular Intensive Care Unit Attending Progress Note CVICU D2 Assigned #[id number] ICU Admission Reason Most Recent Value ICU [...] long tobacco abuse history, presenting with acute MT and STEMI, resu ltant cardiogenic shock refractory [...] Pager Mellisa Haji MD Admitting Provider Cardiology 15542 Quality section A-Line necessity reviewed: Hdhm-dx-lnpu blood pressure monitoring CVC necessity reviewed: Medication [...] Date of Service: 03/17/2017 Author:Anurag Ashby MD [address] [phone] signed by Anurag Ashby MD at 03/17/2017 2:00 PM P Mauri Calderon - 03/17/2017 1:01 PM PDTTransthoracic echocardiogram completed. Final r eport to follow. 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 Was shocked 17 times Targeted temperature [...] Patient was difficult intubation at outside poultry hatchery laborer. -vanc zosyn stopped today Abnormal CK [...] Pager Mellisa Haji MD Admitting Provider Cardiology 25044 This patient does not have an Advanced Care Note for this Admission. Please use the Goal of care section of your ICU navigator to document the advanced care discussion. Quality section A-Line necessity reviewed: Tgjc-ai-amsy blood pressure monitoring CVC necessity reviewed: Hemodynamic monitoring Reardon necessity reviewed: Hourly/Accurate measurement of urinary output for clinical manage ment of critically ill patients FAST HUG Feeding: Tube Feeds Analgesia: apap, oxy, hm Sedation: propofol Thromboprophylaxis: Heparin infusion Head of Bed: Head of Bed Flat Ulcer Prophylaxis: Pantoprazole Glycemic Control: insulin infusion Created by Teddy Kee Do, MS [facility] DEPARTMENT: [facility] ICU CARDIAC Place of Service:- Inpatient CSN: [id number] Suggested Modifier: GC - Resident Involved Suggested CPT: TO HATCHERY LABORER Author:Teddy Kee Do, MS [address] [phone] signed by Teddy Kee DO, MS at 03/17/2017 6:35 PM Raul Hanson MD - 03/16/2017 7:38 PM PDT Cardiovascular Intensive Care Unit Attending Progress Note CVICU D2 Assigned #[id number] ICU Admission Reason Most Recent Value ICU [...] long tobacco abuse history, presenting with acute MT and STEMI, resu ltant cardiogenic shock refractory [...] Pager Mellisa Haji MD Admitting Provider Cardiology 80532 Quality section A-Line necessity reviewed: Cpbu-ir-ydkp blood pressure monitoring CVC necessity reviewed: Rapid [...] Date of Service: 03/16/2017 Author:Raul Wei MD [address] [address]Ykgnixcdmdaicu signed by Raul Wei MD at 03/17/2017 11:03 AM PD Jose Ramon Rodriguez MD - 03/16/2017 5:15 PM PDT Cardiovascular Intensive Care Unit Team Progress Note CVICU D2 Assigned #[id number] ICU Admission Reason Most Recent Value ICU [...] & Plan 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 Was shocked 17 times Now on [...] Patient was difficult intubation at outside poultry hatchery laborer. -bridget retana for now Physical Exam [...] Pager Mellisa Haji MD Admitting Provider Cardiology 82148 Quality section A-Line necessity reviewed: Jmeo-ge-gsgv blood pressure monitoring CVC necessity reviewed: Hemodynamic [...] Ramon Alvarado MD Author:Jose Ramon Alvarado MD [address] [address] [place] [address]Iitwtmtwnwnseb signed by Jose Ramon Alvarado MD at [...] Unit Attending Progress Note CVICU D2 Assigned #[id number] ICU Admission Reason Most Recent Value ICU [...] ICU Day #2 after being transferred from [place] in [place] in acute cardiogenic archie ck following an anterior STEMI. Upon arrival to [facility], decision was made to go [...] Pager Mellisa Haji MD Admitting Provider Cardiology 22772 Quality section A-Line necessity reviewed: Dmtq-su-alre blood pressure monitoring CVC necessity reviewed: Hemodynamic [...] Date of Service: 03/16/2017 Author:Anurag Ashby MD [address] [address]Nwkuymmfvlmreh signed by Anurag Ashby MD at 03/16/2017 1:23 PM Lee Prince MD - 03/16/2017 9:41 AM PDTFormatting of this note might be different from t vikash original. . Extracorporeal Life Support Service Daily Progress Note Pager #[phone] Type: Veno-Arterial (CPT 64602 [place] [address]) Diagnosis:Cardiogenic shock Dressing changed: no Dressing Changed [...] Clinical Update Note Team: D2 Team Pager: [phone] Attending: Abdulaziz Merrill Name: Ron Mckeon ID: [...] Date of Service: 03/16/2017 Mirna Berumen PA-C [facility] DEPARTMENT: [facility] ICU CARDIAC Place of Service:- Inpatient CSN: [id number] Suggested Modifier: None Suggested CPT: TO HATCHERY LABORER Mirna Berumen PA-C Everardo Valladares MD - 03/15/2017 9:04 PM PDT Cardiovascular Intensive Care Unit Attending Progress Note CVICU D2 Assigned #[id number] ICU Admission Reason Most Recent Value ICU Admission reason Cardiogenic Shock filed at 03/15/2017 1531 Hospital admission dx: left anterior descending artery occlusion, needs cabg Days in ICU Days in Hospital Medical Decision Making ICU Day #1 after being transferred from [place] in [place] in acute cardiogenic arcihe ck following an anterior STEMI. Upon arrival to [facility], decision was made to go [...] Pager Mellisa Haji MD Admitting Provider Cardiology 59878 Quality section A-Line necessity reviewed: Hpgp-fe-wouv blood pressure monitoring CVC necessity reviewed: Hemodynamic [...] and the recent imaging available. Seen with PA/FUR JOINER Winston Cole. Please see their note for details. I reviewed the documented findings, all data and the recent imaging available. Date of Service: 03/15/2017 Author:Everardo Cintron MD [address] [address]Zapiusybzeqycr signed by Everardo Cintron MD at 03/15/2017 9:[address] - 03/15/2017 2:11 PM PDTTransthoracic echocardiogram completed. Final r eport to follow. oniPatrick genao MD,MPH - 03/15/2017 2:00 PM PDT . Extracorporeal Life Support Service Consult Service Note Pager #[phone] Date: 03/15/17 Author: Patrick Ruiz MD,MPH Consulting Attending: Mellisa Haji MD Reason for Consult: VA ECMO Consideration HPI: 61 year old male who presents this afternoon to [facility] in acute cardiogenic shock second maciej to STEMI / thrombosed L main coronary artery. He was transferred from [place]. His symptoms started this morning around 3am and was seen in [place], [place]. 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 He was found to h ave [...] and dopamine). On arrival to [facility], he was in profound cardiogenic shock and hypoxic. His MAP was in the 40s. He was tach ycardic into the 150s. IABP was increased to 1:2. Past Medical History: Past Medical History: Diagnosis Date Cardiogenic shock ([facility]) 03/15/2017 Coronary artery disease 03/15/2017 Hypercholesterolemia Hypertension STEMI (ST elevation myocardial infarction) ([facility]) 03/15/2017 Tobacco use Past Surgical [...] from cardiogenic shock. Patrick Ruiz MD, MPH forest fire fighter Trauma, Critical Care & Acute Care Surgery [facility] onies, Patrick Sexton MD,MPH - 03/15/2017 1:48 PM PDT . . Extracorporeal Life Support Service Initiation Note Pager #[phone] Date of service: 03/15/2017 Author: Patrick Ruiz Md,Mph ECMO Type: Veno-Arterial ([place] 38061 [place] [address]) Oxygenation index FiO2: 100 MAP: 22 Diagnosis:Cardiogenic [...] old male who presents this afternoon to [facility] in acute cardiogenic shock secondary [...] | + +--------+ + + + | OD-GA-BOT-HB,POC RT | Routin | 03/19/2017 | ST [...] + +--------+ + + + | NM ECMO REV | Routin | 03/19/2017 | [...] +---+--------+ + +--------+ + + + | CB-FX-AAE-HB,POC RT | Routin | 03/19/2017 | ST [...] | + +--------+ + + + | FL-PA-ZSM-HB,POC RT | Routin | 03/19/2017 | ST elevation | Results for this | | | e | 10:06 AM | myocardial | procedure are in the | | | | PDT | infarction involving | results section. | | | | | left main coronary | | | | | | artery (HCC) | | + +--------+ + + + | AA-HX-HQZ-HB,POC RT | Routin | 03/19/2017 | ST [...] | + +--------+ + + + | MU-YX-UDD-HB,POC RT | Routin | 03/17/2017 | ST [...] | + +--------+ + + + | SN-PZ-PQJ-HB,POC RT | Routin | 03/16/2017 | ST [...] | + +--------+ + + + | MX-OX-UVF-HB,POC RT | Routin | 03/16/2017 | ST [...] | + +--------+ + + + | IC-FI-YYB-HB,POC RT | Routin | 03/15/2017 | ST [...] | + +--------+ + + + | NY-PM-YCT-HB,POC RT | Routin | 03/15/2017 | ST [...] | + +--------+ + + + | WM-XR-AFS-HB,POC RT | Routin | 03/15/2017 | ST [...] Height: 175 cm Weight: 89 kgBSA: 2.05 [id number] PHYSICIAN:Katarina Ngo | | .FELLOW:Gerson Mejias M.D. [...] right coronary angiography.COMPLICATIONS:None.TECHNIQUE:Right femoral artery | | 6-Dutch 10 cm Newport sheath, 6-Dutch XB 3.5 guide catheter, 5-Dutch JR4 | | catheter.DESCRIPTION OF PROCEDURE:Informed consent [...] modified Seldinger technique and a | | 5-Dutch micropuncture system, a 6-Dutch 10 cm Newport sheath was placed in the right | | femoral artery. A 6-Dutch XB 3.5 guide catheter was inserted into the ascending aorta | | over a guidewire. The guidewire was removed. The catheter was aspirated and flushed. | | The left coronary system was selectively engaged and imaged in multiple projections. A | | 5-Dutch Kymberly right 4 catheter was advanced to [...] DOSE AREA | | PRODUCT: 3749 cGy [id number]:Aortic pressure 87/15, mean aortic pressure 63, heart [...] 03/30/2017 04:50:01DT: | | 03/30/2017 08:34:34Job #: [id number] | |extending from it into the LAD. [...] |YDT/MODL | | | | | | /[id number] | + + CAPILLARY BLOOD GLUCOSE (NO [...] [facility] | [address] | [place], [place] | | | JULIANN SILVA OF CARE | [address] | [address] | | | TESTS | | | [...] | + + + + + | [facility] | [address] | [place] [address] | | | SERVICES, CORE | PARK [...] | + + + + + | [facility] | [address] | [place] [address] | | | SERVICES, CORE | PARK [...] [facility] | [address] | [place] [address] | | | SERVICES, CORE | PARK [...] | | | LABORATORY | | | NIGERIEN | | | SERVICES, | | | [...] | + + + + + | [facility] | [address] | [place] [address] | | | ARASH, ИРИНА | PARK [...] ranges for full anticoagulation: INR for | [facility] | | Venous Thromboembolism (2.0 - 3.0) INR INR | LABORATORY | | for most patients with mech. valves (2.5 - 3.5) INR | ИРИНА ANTOINE | + + + + + + + + | Performing | Address | City/State/Zipcode | Phone Number | | Organization | | | | + + + + + | [facility] | [address] | [place] [address] | | | ИРИНА ANTOINE | TABITHA [...] | + + + + + | [facility] | [address] | [place] [address] | | | ARASH, ИРИНА | TABITHA [...] [facility] | [address] | [place], [place] | | | JULIANN SILVA OF ALEX[facility] | [address] | [address] | | | TESTS | | | [...] [facility] | [address] | [place], [place] | | | R[facility]O POINT OF CARE | [address] | [address] | | | TESTS | | | [...] + + + | [facility] | [address] | [place], [place] | | | [facility] | [address] | [address] | | | TESTS | | | [...] | + + + + + | [facility] | [address] | [place] [address] | | | SERVICES, CORE | TABITHA [...] | | | LABORATORY | | | NIGERIEN | | | SERVICES, | | | [...] [facility] | [address] | [place] [address] | | | SERVICES, CORE | PARK [...] [facility] | [address] | [place] [address] | | | SERVICES, CORE | PARK [...] | + + + + + | [facility] | [address] | [place] [address] | | | SERVICES, CORE | TABITHA [...] [facility] | [address] | [place], [place] | | | [facility] POINT OF CARE | [address] | [address] | | | TESTS | | | [...] [facility] | [address] | [place], [place] | | | R[facility]O POINT OF CARE | [address] | [address] | | | TESTS | | | [...] (H) | 70 - 99 mg/dL | [facility] - | | | GLUCOSE, [...] [facility] | [address] | [place], [place] | | | JULIANN SILVA OF [facility] | [address] | [address] | | | TESTS | | | [...] [facility] | [address] | [place], [place] | | | JULIANN SILVA OF CARE | [address] | [address] | | | TESTS | | | [...] [facility] | [address] | [place] [address] | | | SERVICES, CORE | PARK [...] | | | LABORATORY | | | NIGERIEN | | | SERVICES, | | | [...] | + + + + + | [facility] | [address] | [place] [address] | | | SERVICES, ИРИНА | TABITHA [...] | + + + + + | [facility] | [address] | [place] [address] | | | ARASH, ИРИНА | TABITHA [...] [facility] | [address] | [place] [address] | | | SERVICES, CORE | TABITHA [...] | + + + + + | [facility] | [address] | [place] [address] | | | ARASH, ИРИНА | TABITHA [...] [facility] | [address] | [place], [place] | | | [facility] POINT OF CARE | [address] | [address] | | | TESTS | | | [...] | | | LABORATORY | | | NIGERIEN | | | SERVICES, | | | [...] | + + + + + | [facility] | [address] | [place] [address] | | | SERVICES, CORE | TABITHA [...] DEPT OF | [address] | [place], [place] | | | CARDIOLOGY | [address] | [address] | | + + + + + CAPILLARY BLOOD GLUCOSE (NO CHG), POC (03/30/2017 5:22 PM PDT) + +---------+ + + + | Component | Value | Ref Range | Performed | Pathologist | | | | | At | Signature | + +---------+ + + + | BLOOD | 116 (H) | 70 - 99 mg/dL | [facility] - | | | GLUCOSE, [...] [facility] | [address] | [place], [place] | | | [facility] | [address] | [address] | | | TESTS | | | [...] | | | LABORATORY | | | NIGERIEN | | | SERVICES, | | | [...] | + + + + + | [facility] | [address] | [place] [address] | | | SERVICES, CORE | PARK [...] | + + + + + | [facility] | [address] | [place] [address] | | | SERVICES, CORE [...] rmed At | + +------ + | [facility] | [facility] DEPT [facility] | | [facility] Adult Echocardiography | CARDI OLOGY | | Laboratory [address] [place] [address] | | | [place] [address] Pt Name: | | | RON Chaudhary MIKE Study Date/Time 03/30/2017 / 10:44:00 | | | AMMRN: [id number] Most recent | | | prior: 03/19/17 #: [id number] No. previous | | | echos: 3DOB: 1955 61 years Heart | | | Rate: 70 bpmHeight: 68.0 in | | | Blood Pressure: 100/55 mm/HgWeight: 197.0 | | | lb Gender: | | | MBSA: 2.03 m2 Order | | | ID: [id number] Clipper Machine Operator: Shahab Sutton | | | RDCSSonographer 2: Karly Gayle Referring Provider: Ariana | | | [facility] Location: 11KModalities Performed: 2D, Color flow, [...] Tn, | | | patient's significant recent MT, we activated the poultry hatchery laborer. Patient | | | history has [...] Report electronically signed by: | | | [id number] Jordon Neville MD (03/30/2017, 2:04:56 PM) Final | | | | | |Wall Scoring: | | | | | | | | |Report electronically signed by: [id number] Jordon Neville MD (03/30/2017, 2:04:56 PM) | | | | | | | | | | | | Final | | + +------ + + + | Procedure Note | + + | Interface, Cardiology Results - 03/30/2017 2:04 PM [facility] [employer] | | [facility] Echocardi[facility] Laboratory [address] [place] [address] | | [place], [place] [address] Pt Name: RON Chaudhary | | MIKE Study Date/Time 03/30/2017 / 10:44:00 AMMRN: [id number] Most | | recent prior: 03/19/17 #: [id number] No. 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 Patient history has been | | [...] Scoring: Report | | electronically signed by: [id number] Jordon Neville MD (03/30/2017, 2:04:56 PM) Final [...] | | | |Report electronically signed by: [id number] Jordon Neville MD (03/30/2017, 2:04:56 PM) | | | | | | | | Final | + + + + + + + | Performing | Address | City/State/Zipcode | Phone Number | | Organization | | | | + + + + + | [facility] | [address] | [place], [place] | | | CARDIOLOGY | [address] | [address] | | + + + + + CAPILLARY BLOOD GLUCOSE (NO CHG), POC (03/30/2017 9:08 AM PDT) + +---------+ + + + | Component | Value | Ref Range | Performed | Pathologist | | | | | At | Signature | + +---------+ + + + | BLOOD | 110 (H) | 70 - 99 mg/dL | [facility] - | | | GLUCOSE, [...] [facility] | [address] | [place], [place] | | | JULIANN SILVA OF CARE | [address] | [address] | | | TESTS | | | [...] | + + + + + | [facility] | [address] | [place] [address] | | | SERVICES, CORE | TABITHA [...] [facility] | [address] | [place], [place] | | | RICARDO [facility] | [address] | [address] | | | TESTS | | | [...] + | [facility] | [address] | [place], [place] | | | CARDIOLOGY | [address] | [address] | | + + + + + [...] | | | LABORATORY | | | NIGERIEN | | | SERVICES, | | | [...] [facility] | [address] | [place] [address] | | | SERVICES, CORE | PARK [...] | + + + + + | [facility] | [address] | [place] [address] | | | SERVICES, CORE | PARK [...] | + + + + + | [facility] | [address] | [place] [address] | | | SERVICES, CORE | TABITHA [...] OF | [address] | [place], [place] | | | CARDIOLOGY | [address] | [address] | | + + + + + [...] + + | [facility] | [address] | [place], [place] | | | CARDIOLOGY | [address] | [address] | | + + + + + [...] | + + + + + | [facility] | [address] | [place] [address] | | | SERVICES, CORE | TABITHA [...] | + + + + + | [facility] | [address] | [place] [address] | | | SERVICES, ИРИНА | TABITHA [...] [facility] | [address] | [place] [address] | | | SERVICES, CORE | TABITHA [...] | + + + + + | [facility] | [address] | [place] [address] | | | SERVICES, ИРИНА | TABITHA [...] [facility] | [address] | [place], [place] | | | JULIANN S[facility] | [address] | [address] | | | TESTS | | | [...] [facility] | [address] | [place] [address] | | | SERVICES, CORE | PARK [...] DEPT OF | [address] | [place], [place] | | | CARDIOLOGY | [facility] | [address] | | + + + + + CAPILLARY BLOOD GLUCOSE (NO CHG), POC (03/29/2017 8:16 PM PDT) + +---------+ + + + | Component | Value | Ref Range | Performed | Pathologist | | | | | At | Signature | + +---------+ + + + | BLOOD | 105 (H) | 70 - 99 mg/dL | [facility] - | | | GLUCOSE, [...] [facility] | [address] | [place], [place] | | | RICARDO POINT OF CARE | [address] | [address] | | | TESTS | | | [...] [facility] | [address] | [place], [place] | | | JULIANN SILVA OF ALEXIS | [facility] | [address] | | | TESTS | | | [...] | + + + + + | [facility] | [address] | [place] [address] | | | ИРИНА ANTOINE | TABITHA [...] MARIA | [address] | [place], [place] | | | JULIANN SILVA OF [facility] | [address] | [address] | | | TESTS | | | [...] [facility] | [address] | [place] [address] | | | SERVICES, CORE | PARK [...] | | | LABORATORY | | | NIGERIEN | | | SERVICES, | | | [...] | + + + + + | [facility] | [address] | [place] [address] | | | SERVICES, CORE | TABITHA [...] (H) | 0.90 - 1.20 INR | [facility] | | | | | | LABORATORY [...] [facility] | [address] | [place] [address] | | | ИРИНА ANTOINE | TABITHA [...] [facility] | [address] | [place] [address] | | | SERVICES, CORE | PARK [...] | + + + + + | [facility] | [address] | [place] [address] | | | SERVICES, CORE | TABITHA [...] | + + + + + | [facility] | [address] | [place] [address] | | | SERVICES, CORE | TABITHA [...] [facility] | [address] | [place], [place] | | | JULIANN SILVA OF CARE | [address] | [address] | | | TESTS | | | [...] (H) | 70 - 99 mg/dL | [facility] - | | | GLUCOSE, [...] - [facility] | [address] | [place], [place] | | | [facility] | [address] | [address] | | | TESTS | | | [...] | | | LABORATORY | | | NIGERIEN | | | SERVICES, | | | [...] [facility] | [address] | [place] [address] | | | ARASH, ИРИНА | PARK [...] [facility] | [address] | [place] [address] | | | SERVICES, CORE | PARK [...] | | | LABORATORY | | | NIGERIEN | | | SERVICES, | | | [...] | + + + + + | [facility] | [address] | [place] [address] | | | ARASH, ИРИНА | TABITHA [...] 93 | 70 - 99 mg/dL | [facility] - | | | GLUCOSE, [...] [facility] | [address] | [place] | | | JULIANN SILVA OF CARE | [facility] | [address] | | | TESTS | | | [...] MARIA | [address] | [place], [place] | | | JULIANN SILVA OF ALEXIS | [address] | [address] | | | TESTS | | | [...] [facility] | [address] | [place] [address] | | | ИРИНА ANTOINE | TABITHA [...] | | | LABORATORY | | | NIGERIEN | | | SERVICES, | | | [...] | + + + + + | [facility] | [address] | [place] [address] | | | SERVICES, CORE | TABITHA [...] | + + + + + | [facility] | [address] | [place] [address] | | | SERVICES, ИРИНА | TABITHA [...] ranges for full anticoagulation: INR for | [facility] | | Venous Thromboembolism (2.0 - 3.0) INR INR | LABORATORY | | for most patients with mech. valves (2.5 - 3.5) INR | ИРИНА ANTOINE | + + + + + + + + | Performing | Address | City/State/Zipcode | Phone Number | | Organization | | | | + + + + + | [facility] | [address] | [place] [address] | | | SERVICES, ИРИНА | TABITHA [...] [facility] | [address] | [place] [address] | | | ARASH, ИРИНА | PARK [...] [facility] | [address] | [place], [place] | | | JULIANN SILVA OF [facility] | [address] | [address] | | | TESTS | | | [...] [facility] | [address] | [place], [place] | | | [facility] | [address] | [address] | | | TESTS | | | [...] [facility] | [address] | [place] | | | [facility] | [address] | [address] | | | TESTS | | | [...] (H) | 70 - 99 mg/dL | [facility] - | | | GLUCOSE, | | [...] [facility] | [address] | [place], [place] | | | JULIANN SILVA OF ALEXIS | [address] | [address] | | | TESTS | | | [...] + + | [facility] | [address] | [place] [address] | | | SERVICES, CORE | TABITHA [...] | + + + + + | [facility] | [address] | [place] [address] | | | SERVICES, CORE | TABITHA [...] | | | LABORATORY | | | NIGERIEN | | | SERVICES, | | | [...] + + | [facility] | [address] | [place] [address] | | | SERVICES, CORE | PARK [...] | + + + + + | [facility] | [address] | [place] [address] | | | SERVICES, CORE | TABITHA [...] | + + + + + | [facility] | [address] | [place] [address] | | | ИРИНА ANTOINE | TABITHA [...] [facility] | [address] | [place] | | | JULIANN SILVA OF A[facility] | [address] | [address] | | | TESTS | | | [...] [facility] | [address] | [place] | | | [facility] | [address] | [address] | | | TESTS | | | [...] | | | LABORATORY | | | NIGERIEN | | | SERVICES, | | | [...] | + + + + + | [facility] | [address] | [place] [address] | | | SERVICES, ИРИНА | TABITHA [...] MARIA | [address] | [place], [place] | | | JULIANN SILVA OF ALEXIS | [address] | [address] | | | TESTS | | | [...] + + | [facility] | [address] | [place] [address] | | | ARASH, ИРИНА | TABITHA [...] | + + + + + | [facility] | [address] | [place] [address] | | | ИРИНА ANTOINE | TABITHA [...] [facility] | [address] | [place] [address] | | | SERVICES, CORE | PARK [...] | | | LABORATORY | | | NIGERIEN | | | SERVICES, | | | [...] | + + + + + | [facility] | [address] | [place] [address] | | | SERVICES, CORE | PARK [...] | + + + + + | [facility] | [address] | [place] [address] | | | ИРИНА ANTOINE | TABITHA [...] | + + + + + | [facility] | [address] | [place] [address] | | | SERVICES, CORE | PARK [...] | [facility] | | considered for monitoring jail glycemic control in patients with: | LABORATORY [...] | + + + + + | [facility] | [address] | [place] [address] | | | SERVICES, SPECIAL | TABITHA [...] [facility] | [address] | [place] [address] | | | SERVICES, CORE | PARK [...] - [facility] | [address] | [place], [place] | | | [facility] | [address] | [address] | | | TESTS | | | [...] (H) | 70 - 99 mg/dL | [facility] - | | | GLUCOSE, [...] + + + | [facility] | [address] | [place], [place] | | | JULIANN S[facility]VA OF [facility] | [address] | [address] | | | TESTS | | | [...] [facility] | [address] | [place] [address] | | | ARASH, ИРИНА | TABITHA [...] | [facility] | | | GRAVITY | [place] performed by | | LABORATORY | | [...] [facility] | [address] | [place] [address] | | | ARASH, CORE | TABITHA [...] | + + + + + | [place] | [address] | [place] [address] | | | [place] | | | | + + + [...] [facility] | [address] | [place] | | | [facility] | [address] | [address] | | | TESTS | | | [...] MARIA | [address] | [place], [place] | | | JULIANN SILVA OF ALEXIS | [facility] | [address] | | | TESTS | | | [...] | + + + + + | [facility] | [address] | [place] [address] | | | ARASH, ИРИНА | TABITHA [...] [facility] | [address] | [place] [address] | | | SERVICES, CORE | TABITHA [...] | + + + + + | [facility] | [address] | [place] [address] | | | SERVICES, CORE | TABITHA [...] [facility] | [address] | [place] [address] | | | SERVICES, CORE | PARK [...] | | | LABORATORY | | | NIGERIEN | | | SERVICES, | | | [...] [facility] | [address] | [place] [address] | | | ARASH, ИРИНА | TABITHA [...] | + + + + + | [facility] | [address] | [place] [address] | | | ИРИНА ANTOINE | TABITHA [...] MARIA | [address] | [place], [place] | | | JULIANN SILVA OF CARE | [facility] | [address] | | | TESTS | | | [...] (H) | 70 - 99 mg/dL | [facility] - | | | GLUCOSE, [...] [facility] | [address] | [place] | | | [facility] | [address] | [address] | | | TESTS | | | [...] [facility] | [address] | [place], [place] | | | JULIANN SILVA OF A[facility] | [address] | [address] | | | TESTS | | | [...] MARIA | [address] | [place] | | | J[facility]ANN [facility] | [address] | [address] | | | TESTS | | | [...] + + | [facility] | [address] | [place] [address] | | | SERVICES, CORE | PARK [...] [facility] | [address] | [place] [address] | | | SERVICES, CORE | PARK [...] | MIGUELMENDY Enriquez ANA [facility] | [address] | [place], [place] | | | [facility] | [address] | [address] | | | TESTS | | | [...] | | | attempt. Midline lot number [id number]; there was + blood | | | [...] [facility] | [address] | [place] | | | JULIANN SILVA OF CARE | [address] | [address] | | | TESTS | | | [...] MARIA | [address] | [place], [place] | | | [facility] | [address] | [address] | | | TESTS | | | [...] | + + + + + | [facility] | [address] | [place] [address] | | | SERVICES, CORE | TABITHA [...] (H) | 70 - 99 mg/dL | [facility] - | | | GLUCOSE, | | [...] [facility] | [address] | [place] | | | JULIANN SILVA OF ALEX[place] | [address] | [address] | | | TESTS | | | [...] MARIA | [address] | [place], [place] | | | JULIANN SILVA OF ALEXIS | [facility] | [address] | | | TESTS | | | [...] (H) | 70 - 99 mg/dL | [facility] - | | | GLUCOSE, [...] [facility] | [address] | [place] | | | JULIANN SILVA OF CARE | [address] | [address] | | | TESTS | | | [...] [facility] | [address] | [place] | | | GURINDER SILVA | [facility] | [address] | | | TESTS | | | [...] [facility] | [address] | [place] [address] | | | ИРИНА ANTOINE | TABITHA [...] + + | [facility] | [address] | [place] [address] | | | ИРИНА ANTOINE | TABITHA [...] [facility] | [address] | [place] [address] | | | SERVICES, CORE | PARK [...] | | | LABORATORY | | | NIGERIEN | | | SERVICES, | | | [...] City/State/[facility] | Phone Number | | Organization | | | | + + + + + | [facility] | [address] | [place] [address] | | | ИРИНА ANTOINE | PARK [...] | + + + + + | [facility] | [address] | [place] [address] | | | ИРИНА ANTOINE | TABITHA [...] (H) | 70 - 99 mg/dL | [facility] - | | | GLUCOSE, [...] MARIA | [address] | [place] | | | JULIANN SILVA OF A[place] | [address] | [address] | | | TESTS | | | [...] [facility] | [address] | [place] | | | JULIANN SILVA OF ALEXIS | [facility] | [address] | | | TESTS | | | [...] - [facility] | [address] | [place], [place] | | | JULIANN SILVA OF CARE | [facility] | [address] | | | TESTS | | | [...] (H) | 70 - 99 mg/dL | [facility] - | | | GLUCOSE, [...] MARIA | [address] | [place] | | | JULIANN SILVA OF CARE | [address] | [address] | | | TESTS | | | [...] [facility] | [address] | [place] [address] | | | ARASH, CORE | PARK [...] - [facility] | [address] | [place], [place] | | | [facility] | [address] | [address] | | | TESTS | | | [...] (H) | 70 - 99 mg/dL | [facility] - | | | GLUCOSE, [...] + + + | [facility] | [address] | [place], [place] | | | JULIANN [facility] | [address] | [address] | | | TESTS | | | [...] | + + + + + | [facility] | [address] | [place] [address] | | | SERVICES, CORE | TABITHA [...] [facility] | [address] | [place] | | | [facility] | [address] | [address] | | | TESTS | | | [...] [facility] | [address] | [place], [place] | | | [facility] | [address] | [address] | | | TESTS | | | [...] [facility] | [address] | [place] | | | JULIANN SILVA OF CARE | [address] | [address] | | | TESTS | | | [...] [facility] | [address] | [place] | | | [facility] | [address] | [address] | | | TESTS | | | [...] | [facility] | [address] [address] [address] | [place] | | | [facility] PO[facility]ARE | [address] | [address] | | | TESTS | | | [...] + + | [facility] | [address] | [place] [address] | | | SERVICES, CORE | PARK [...] | + + + + + | [facility] | [address] | [place] [address] | | | SERVICES, CORE | TABITHA [...] | + + + + + | [facility] | [address] | [place] [address] | | | SERVICES, CORE | TABITHA [...] | | | LABORATORY | | | NIGERIEN | | | SERVICES, | | | [...] [facility] | [address] | [place] [address] | | | SERVICES, CORE | TABITHA [...] | + + + + + | [facility] | [address] | [place] [address] | | | SERVICES, ИРИНА | TABITHA [...] [facility] | [address] | [place] | | | [facility]O PO[facility] OF CARE | [facility] | [address] | | | TESTS | | | [...] - [facility] | [address] | [place] | | | [facility] | [address] | [address] | | | TESTS | | | [...] + + + | [facility] | [address] | [place] | | | [facility] | [address] | [address] | | | TESTS | | | [...] [facility] | [address] | [place] | | | JULIANN SILVA OF CARE | [address] | [address] | | | TESTS | | | [...] - [facility] | [address] | [place], [place] | | | [facility] | [address] | [address] | | | TESTS | | | [...] [facility] | [address] | [place] | | | [facility] | [address] | [address] | | | TESTS | | | [...] | + + + + + | [facility] | [address] | [place] [address] | | | ИРИНА ANTOINE | TABITHA [...] (H) | 70 - 99 mg/dL | [facility] - | | | GLUCOSE, [...] [facility] | [address] | [place] | | | [facility] | [address] | [address] | | | TESTS | | | [...] [facility] | [address] | [place], [place] | | | JULIANN SILVA OF A[facility] | [address] | [address] | | | TESTS | | | [...] MARIA | [address] | [place] | | | JULIANN SILVA OF CARE | [facility] | [address] | | | TESTS | | | [...] (H) | 70 - 99 mg/dL | [facility] - | | | GLUCOSE, [...] [facility] | [address] | [place] | | | [facility]ARE | [address] | [address] | | | TESTS | | | [...] MARIA | [address] | [place], [place] | | | JULIANN SILVA OF A[facility] | [address] | [address] | | | TESTS | | | [...] | + + + + + | [facility] | [address] | [place] [address] | | | SERVICES, CORE | TABITHA [...] (H) | 70 - 99 mg/dL | [facility] - | | | GLUCOSE, | | [...] [facility] | [address] | [place] | | | JULIANN SILVA OF CARE | [address] | [address] | | | TESTS | | | [...] [facility] | [address] | [place] | | | [facility] | [address] | [address] | | | TESTS | | | [...] [facility] | [address] | [place] | | | JULIANN SILVA OF ALEXIS | [facility] | [address] | | | TESTS | | | [...] [facility] | [address] | [place] | | | JULIANN SILVA OF [facility] | [address] | [address] | | | TESTS | | | [...] [facility] | [address] | [place] | | | [facility]ARE | [address] | [address] | | | TESTS | | | [...] MARIA | [address] | [place] | | | [facility] | [facility] | [address] | | | TESTS | | | [...] | + + + + + | [facility] | [address] | [place] [address] | | | SERVICES, | [address] [...] [facility] | [address] | [place] [address] | | | SERVICES, | [address] [...] + + + + | PRODUCT | [id number] | | [facility] | | | UNIT [...] + + + + | EXPIRATION | [id number] | | [facility] | | | DATE [...] + + + + | BLOOD | [id number] | | [facility] | | | PRODUCT [...] [facility] | [address] | [place] [address] | | | SERVICES, | [address] [...] [facility] | [address] | [place] [address] | | | SERVICES, CORE | PARK [...] [facility] | [address] | [place] [address] | | | SERVICES, CORE | TABITHA [...] | + + + + + | [facility] | [address] | [place] [address] | | | SERVICES, CORE | PARK [...] | + + + + + | [facility] | [address] | [place] [address] | | | SERVICES, CORE | PARK [...] + + | [facility] | [address] | [place] [address] | | | SERVICES, CORE | PARK [...] | | | LABORATORY | | | NIGERIEN | | | SERVICES, | | | [...] LABORATORY | [address] | [place] [address] | | | ARASH, ИРИНА | TABITHA [...] (H) | 70 - 99 mg/dL | [facility] - | | | GLUCOSE, [...] [facility] | [address] | [place], [place] | | | JULIANN SILVA OF ALEXIS | [facility] | [address] | | | TESTS | | | [...] [facility] | [address] | [place] | | | RIACRDO POINT OF CARE | [address] | [address] | | | TESTS | | | [...] [facility] | [address] | [place] | | | JULIANN SILVA OF CARE | [facility] | [address] | | | TESTS | | | [...] [facility] | [address] | [place] | | | JULIANN SILVA OF ALEXIS | [facility] | [address] | | | TESTS | | | [...] [facility] | [address] | [place] | | | [facility]O PO[facility] CARE | [address] | [address] | | | TESTS | | | [...] [facility] | [address] | [place] | | | JULIANN SILVA OF CARE | [facility] | [address] | | | TESTS | | | [...] [facility] | [address] | [place], [place] | | | JULIANN SILVA OF [facility] | [address] | [address] | | | TESTS | | | [...] [facility] | [address] | [place] | | | [facility] PO[facility]ARE | [address] | [address] | | | TESTS | | | [...] MARRANDIAM | [address] | [place], [place] | | | [facility] | [address] | [address] | | | TESTS | | | [...] | | | LABORATORY | | | NIGERIEN | | | SERVICES, | | | [...] | + + + + + | [facility] | [address] | [place] [address] | | | SERVICES, ИРИНА | TABITHA [...] MARIA | [address] | [place] | | | JULIANN SILVA OF ALEX[facility] | [facility] | [address] | | | TESTS | | | [...] (H) | 70 - 99 mg/dL | [facility] - | | | GLUCOSE, [...] [facility] | [address] | [place] | | | [facility]O PO[facility]ARE | [address] | [address] | | | TESTS | | | [...] MARIA | [address] | [place], [place] | | | JULIANN SILVA OF [facility] | [address] | [address] | | | TESTS | | | [...] on the 1 attempt. Midline lot number [id number]; there was + | | | blood [...] [facility] | [address] | [place] | | | JULIANN SILVA OF CARE | [facility] | [address] | | | TESTS | | | [...] MARIA | [address] | [place] | | | JULIANN SILVA OF CARE | [address] | [address] | | | TESTS | | | [...] [facility] | [address] | [place] [address] | | | SERVICES, CORE | PARK [...] MARIA | [address] | [place] | | | JULIANN SILVA OF [facility] | [address] | [address] | | | TESTS | | | [...] | + + + + + | [facility] | [address] | [place] [address] | | | ИРИНА ANTOINE | TABITHA [...] [facility] | [address] | [place] | | | HILL, POINT OF CARE | [address] | [address] | | | TESTS | | | [...] (H) | 70 - 99 mg/dL | [facility] - | | | GLUCOSE, | | [...] [facility] | [address] | [place] | | | JULIANN SILVA OF ALEXIS | [facility] | [address] | | | TESTS | | | [...] RODGERS | [address] | [place], [place] | | | RICARDO POINT OF CARE | [address] | [address] | | | TESTS | | | [...] MARQUAM | [address] | [place], [place] | | | HILL, POINT OF CARE | [address] | [address] | | | TESTS | | | [...] [facility] | [address] | [place] [address] | | | SERVICES, CORE | PARK [...] [facility] | [address] | [place] [address] | | | ARASH, ИРИНА | PARK [...] | + + + + + | [facility] | [address] | [place] [address] | | | SERVICES, CORE | TABITHA [...] | | | LABORATORY | | | NIGERIEN | | | SERVICES, | | | [...] | + + + + + | [facility] | [address] | [place] [address] | | | SERVICES, CORE | TABITHA [...] (H) | 70 - 99 mg/dL | [facility] - | | | GLUCOSE, | | [...] RODGERS | [address] | [place], [place] | | | RICARDO POINT OF CARE | [address] | [address] | | | TESTS | | | [...] MARQUAM | [address] | [place] | | | RICARDO POINT OF CARE | [address] | [address] | | | TESTS | | | [...] RODGERS | [address] | [place] | | | RICARDO POINT OF CARE | [address] | [address] | | | TESTS | | | [...] RODGERS | [address] | [place], [place] | | | JULIANN SILVA OF [place] | [address] | [address] | | | TESTS | | | [...] ANA MARIA | [address] | [place], [place] | | | JULIANN SILVA OF [facility] | [address] | [address] | | | TESTS | | | [...] | + + + + + | [facility] | [address] | [place] [address] | | | SERVICES, CORE | TABITHA [...] MARQUAM | [address] | [place], [place] | | | JULIANN SILVA OF CARE | [address] | [address] | | | TESTS | | | [...] MARQUAM | [address] | [place], [place] | | | JULIANN SILVA OF CARE | [address] | [address] | | | TESTS | | | [...] RODGERS | [address] | [place] | | | JULIANN SILVA OF CARE | [address] | [address] | | | TESTS | | | [...] MARQUAM | [address] | [place] | | | JULIANN SILVA OF CARE | [address] | [address] | | | TESTS | | | [...] MARQUAM | [address] | [place], [place] | | | JULIANN SILVA OF CARE | [address] | [address] | | | TESTS | | | [...] RODGERS | [address] | [place] | | | JULIANN SILVA OF CARE | [address] | [address] | | | TESTS | | | [...] MARQUAM | [address] | [place] | | | JULIANN SILVA OF CARE | [address] | [address] | | | TESTS | | | [...] | + + + + + | [facility] | [address] | [place] [address] | | | SERVICES, CORE | TABITHA [...] RODGERS | [address] | [place], [place] | | | RICARDO POINT OF CARE | [address] | [address] | | | TESTS | | | [...] MARIA | [address] | [place], [place] | | | RICARDO [place] OF [facility] | [address] | [address] | | | TESTS | | | [...] | + + + + + | [facility] | [address] | [place] [address] | | | SERVICES, CORE | TABITHA [...] (H) | 70 - 99 mg/dL | [facility] - | | | GLUCOSE, [...] RODGERS | [address] | [place] | | | RICARDO POINT OF CARE | [address] | [address] | | | TESTS | | | [...] the tip in the proximal gastric body. [place] [facility] | | | catheter in place. [...] Note | + + | Service Account, [employer] Res In Interface - 03/20/2017 2:38 PM PDT EXAM: Supine | | frontal view of the abdomen. HISTORY: Study to evaluate feeding tube | | positionCOMPARISON: Chest Xray dated 03/19/2017.FINDINGS AND IMPRESSION:Feeding tube is | | seen in the stomach with the tip in the proximal gastric body.[place] [facility] catheter in | | place.Limited evaluation of the lungs as technique was tailored for feeding tube.I have | | personally reviewed the images and, if necessary, edited the report. I agree with the | | report as now presented. | | | |Feeding tube is seen in the stomach with the tip in the proximal gastric body. | |[place] Олег catheter in place. | |Limited evaluation [...] RODGERS | [address] | [place], [place] | | | JULIANN SILVA OF CARE | [facility] | [address] | | | TESTS | | | [...] MARIA | [address] | [place], [place] | | | JULIANN SILVA OF ALEXIS | [address] | [address] | | | TESTS | | | [...] ANA MARIA | [address] | [place], [place] | | | JULIANN SILVA OF CARE | [facility] | [address] | | | TESTS | | | [...] (H) | 70 - 99 mg/dL | [facility] - | | | GLUCOSE, [...] RODGERS | [address] | [place], [place] | | | JULIANN SILVA OF CARE | [facility] | [address] | | | TESTS | | | [...] AMRIA | [address] | [place], [place] | | | JULIANN SILVA OF ALEX[place] | [address] | [address] | | | TESTS | | | [...] | + + + + + | [facility] | [address] | [place] [address] | | | SERVICES, CORE | PARK [...] | + + + + + | [facility] | [address] | [place] [address] | | | SERVICES, CORE | TABITHA [...] | + + + + + | [facility] | [address] | [place] [address] | | | ИРИНА ANTOINE | PARK [...] MARQUAM | [address] | [place], [place] | | | RICARDO POINT OF CARE | [address] | [address] | | | TESTS | | | | + + + + + X-RAY PORTABLE CHEST 1 VIEW (03/20/2017 6:33 AM PDT) + + | Specimen | + + | | + + + + + | Narrative | Performed At | + + + | EXAM: NM CHEST 1 VIEW 03/20/17 04:29:28 HISTORY: ECMO [...] Interface - 03/20/2017 10:12 AM PDT EXAM: NM CHEST 1 | | VIEW 03/20/17 04:29:28 [...] | | + +---------+ + + | [facility] | | | | [...] - MARRANDIAM | [address] | [place], [place] | | | JULIANN SILVA OF CARE | [address] | [address] | | | TESTS | | | [...] RODGERS | [address] | [place], [place] | | | JULIANN SILVA OF [place]LEX[place] | [address] | [address] | | | TESTS | | | [...] MARQUAM | [address] | [place], [place] | | | JULIANN SILVA OF CARE | [address] | [address] | | | TESTS | | | [...] MARIA | [address] | [place], [place] | | | [facility] | [address] | [address] | | | TESTS | | | [...] [facility] | [address] | [place] [address] | | | SERVICES, CORE | PARK [...] [facility] | [address] | [place] [address] | | | SERVICES, CORE | TABITHA [...] [facility] | [address] | [place] [address] | | | ARASH, ИРИНА | TABITHA [...] [facility] | [address] | [place] [address] | | | SERVICES, CORE | PARK [...] | | | LABORATORY | | | NIGERIEN | | | SERVICES, | | | [...] | + + + + + | [facility] | [address] | [place] [address] | | | SERVICES, CORE | TABITHA [...] - MARQUAM | [address] | [place], [place] | | | JULIANN SILVA OF CARE | [facility] | [address] | | | TESTS | | | [...] RODGERS | [address] | [place] | | | JULIANN SILVA OF ALEXIS | [address] | [address] | | | TESTS | | | [...] | + + + + + | [facility] | [address] | [place] [address] | | | ARASH CORE | PARK [...] MARQUAM | [address] | [place], [place] | | | JULIANN SILVA OF CARE | [facility] | [address] | | | TESTS | | | [...] (H) | 70 - 99 mg/dL | [facility] - | | | GLUCOSE, [...] MARIA | [address] | [place], [place] | | | JULIANN SILVA OF [facility] | [address] | [address] | | | TESTS | | | [...] | + + + + + | [facility] | [address] | [place] [address] | | | SERVICES, CORE | TABITHA [...] MARQUAM | [address] | [place], [place] | | | R[facility]ARDO POINT OF CARE | [address] | [address] | | | TESTS | | | [...] | + + + + + | [facility] | [address] | [place] [address] | | | SERVICES, ИРИНА | TABITHA [...] MARQUAM | [address] | [place] | | | JULIANN SILVA OF CARE | [facility] | [address] | | | TESTS | | | [...] [facility] | [address] | [place] [address] | | | SERVICES, CORE | PARK [...] | + + + + + | [facility] | [address] | [place] [address] | | | SERVICES, CORE | TABITHA [...] (H) | 70 - 99 mg/dL | [facility] - | | | GLUCOSE, [...] + + + | [facility] | [address] | [place], [place] | | | RICARDO POINT OF CARE | [address] | [address] | | | TESTS | | | [...] [facility] | [address] | [place] [address] | | | SERVICES, CORE | TABITHA [...] | + + + + + | [facility] | [address] | [place] [address] | | | SERVICES, CORE | TABITHA [...] | + + + + + | [facility] | [address] | [place] [address] | | | SERVICES, CORE | PARK [...] | + + + + + | [facility] | [address] | [place] [address] | | | SERVICES, CORE | TABITHA [...] MARQUAM | [address] | [place], [place] | | | JULIANN SILVA OF CARE | [address] | [address] | | | TESTS | | | [...] MARRANDIAM | [address] | [place], [place] | | | RICARDO POINT OF CARE | [address] | [address] | | | TESTS | | | [...] (H) | 70 - 99 mg/dL | [facility] - | | | GLUCOSE, [...] RODGERS | [address] | [place] | | | JULIANN SILVA OF [facility] | [address] | [address] | | | TESTS | | | [...] | + + + + + | [facility] | [address] | [place] [address] | | | SERVICES, CORE | PARK [...] DEPT OF | [address] | [place], [place] | | | CARDIOLOGY | [facility] | [address] | | + + + + + CAPILLARY BLOOD GLUCOSE (NO CHG), POC (03/19/2017 1:05 PM PDT) + +---------+ + + + | Component | Value | Ref Range | Performed | Pathologist | | | | | At | Signature | + +---------+ + + + | BLOOD | 137 (H) | 70 - 99 mg/dL | [facility] - | | | GLUCOSE, [...] RODGERS | [address] | [place], [place] | | | R[facility]ARDO POINT OF CARE | [address] | [address] | | | TESTS | | | | + + + + + PB-NC-SQK-HBPOC RT (03/19/2017 1:04 PM PDT) + + [...] [facility] | [address] | [place], [place] | | | [facility] | [address] | [address] | | | TESTS | | | [...] + + + + | PRODUCT | [id number] | | [facility] | | | UNIT [...] + + + + | EXPIRATION | [id number] | | [facility] | | | DATE [...] + + + + | BLOOD | [id number] | | [facility] | | | PRODUCT [...] LABORATORY | [address] | [place] [address] | | | SERVICES, | [address] [...] + + + + | PRODUCT | [id number] | | [facility] | | | UNIT [...] + + + + | EXPIRATION | [id number] | | [facility] | | | DATE [...] + + + + | BLOOD | [id number] | | [facility] | | | PRODUCT [...] | + + + + + | [facility] | [address] | [place] [address] | | | SERVICES, | [address] [...] + + + + | PRODUCT | [id number] | | [facility] | | | UNIT [...] + + + + | EXPIRATION | [id number] | | [facility] | | | DATE [...] + + + + | BLOOD | [id number] | | [facility] | | | PRODUCT [...] | + + + + + | [facility] | [address] | [place] [address] | | | SERVICES, | [address] [...] + + + + | PRODUCT | [id number] | | [facility] | | | UNIT [...] + + + + | EXPIRATION | [id number] | | [facility] | | | DATE [...] + + + + | BLOOD | [id number] | | [facility] | | | PRODUCT [...] | + + + + + | [facility] | [address] | [place] [address] | | | SERVICES, | [address] [...] [facility] | [address] | [place] [address] | | | SERVICES, ИРИНА | TABITHA [...] | | | LABORATORY | | | NIGERIEN | | | SERVICES, | | | [...] | + + + + + | [facility] | [address] | [place] [address] | | | SERVICES, CORE | TABITHA [...] | + + + + + | [facility] | [address] | [place] [address] | | | SERVICES, CORE | TABITHA [...] | + + + + + | [facility] | [address] | [place] [address] | | | SERVICES, CORE | [address] | | | + + + + + NM ECMO REV (EXT)AND/OR DECANNULATION (03/19/2017 12:36 PM [...] Siria | | | GISELL Preston PhD [facility] [address] [id number] [place], | | | [place] [address] | | + + + ABG-FULL ABL, [...] MARIA | [address] | [place], [place] | | | JULIANN SILVA OF CARE | [address] | [address] | | | TESTS | | | [...] MARQUAM | [address] | [place] | | | JULIANN S[facility]VA [facility] | [address] | [address] | | | TESTS | | | | + + + + + VV-GJ-NYK-HB,POC RT (03/19/2017 10:24 AM PDT) + + [...] RODGERS | [address] | [place], [place] | | | R[facility]ARDO POINT OF CARE | [address] | [address] | | | TESTS | | | [...] MARIA | [address] | [place], [place] | | | JULIANN SILVA OF ALEX[place] | [facility] | [address] | | | TESTS | | | | + + + + + FF-EF-PHX-HB,POC RT (03/19/2017 10:06 AM PDT) + + [...] MARQUAM | [address] | [place], [place] | | | JULIANN SILVA OF CARE | [address] | [address] | | | TESTS | | | | + + + + + SX-AL-VHG-HB,POC RT (03/19/2017 9:51 AM PDT) + + [...] RODGERS | [address] | [place] | | | JULIANN SILVA OF ALEX[place] | [address] | [address] | | | TESTS | | | [...] + + + + | PRODUCT | [id number] | | [facility] | | | UNIT [...] + + + + | EXPIRATION | [id number] | | [facility] | | | DATE [...] + + + + | BLOOD | [id number] | | [facility] | | | PRODUCT [...] | + + + + + | [facility] | [address] | [place] [address] | | | SERVICES, | [address] [...] + + + + | PRODUCT | [id number] | | [facility] | | | UNIT [...] + + + + | EXPIRATION | [id number] | | [facility] | | | DATE [...] + + + + | BLOOD | [id number] | | [facility] | | | PRODUCT [...] [facility] | [address] | [place] [address] | | | SERVICES, | [address] [...] + + + + | PRODUCT | [id number] | | [facility] | | | UNIT [...] + + + + | EXPIRATION | [id number] | | [facility] | | | DATE [...] + + + + | BLOOD | [id number] | | [facility] | | | PRODUCT [...] [facility] | [address] | [place] [address] | | | SERVICES, | [address] [...] + + + + | PRODUCT | [id number] | | [facility] | | | UNIT [...] + + + + | EXPIRATION | [id number] | | [facility] | | | DATE [...] + + + + | BLOOD | [id number] | | [facility] | | | PRODUCT [...] + + | [facility] | [address] | [place] [address] | | | SERVICES, | [address] | | | | TRANSFUSION MEDICINE | | | | + + + + + X-RAY PORTABLE CHEST 1 VIEW (03/19/2017 9:13 AM PDT) + + | Specimen | + + | | + + + + + | Narrative | Performed At | + + + | EXAM: NM CHEST 1 VIEW HISTORY: ECMO. Evaluate cannula | [facility] | | placement. COMPARISON: Yesterday FINDINGS: Endotracheal | RADIOLOGY VOICE | | tube, [place]-Олег catheter and enteric tube remain in place. [...] Interface - 03/19/2017 9:17 AM PDT EXAM: NM CHEST 1 | | VIEW HISTORY: ECMO. Evaluate cannula placement.COMPARISON: YesterdayFINDINGS: | | Endotracheal tube, [place]-Олег catheter and enteric tube remain in place. [...] RODGERS | [address] | [place], [place] | | | JULIANN SILVA OF CARE | [facility] | [address] | | | TESTS | | | [...] MARQUAM | [address] | [place], [place] | | | JULIANN SILVA OF CARE | [address] | [address] | | | TESTS | | | [...] | + + + + + | [facility] | [address] | [place] [address] | | | ИРИНА ANTOINE | TABITHA [...] (H) | 70 - 99 mg/dL | [facility] - | | | GLUCOSE, [...] MARQUAM | [address] | [place] | | | RICARDO POINT OF CARE | [address] | [address] | | | TESTS | | | [...] RODGERS | [address] | [place] | | | JULIANN SILVA OF ALEXIS | [facility] | [address] | | | TESTS | | | [...] BLUAM | [address] | [place], [place] | | | JULIANN SILVA OF CARE | [facility] | [address] | | | TESTS | | | [...] (H) | 70 - 99 mg/dL | [facility] - | | | GLUCOSE, [...] MARIA | [address] | [place] | | | JULIANN SILVA [facility] | [address] | [address] | | | TESTS | | | [...] | + + + + + | [facility] | [address] | [place] [address] | | | SERVICES, CORE | TABITHA [...] MARQUAM | [address] | [place], [place] | | | RICARDO POINT OF CARE | [address] | [address] | | | TESTS | | | [...] MARRANDIAM | [address] | [place], [place] | | | R[facility]ARDO POINT OF CARE | [address] | [address] | | | TESTS | | | [...] RODGERS | [address] | [place] | | | JULIANN SILVA [facility] | [address] | [address] | | | TESTS | | | [...] [facility] | [address] | [place] [address] | | | SERVICES, CORE | PARK [...] RODGERS | [address] | [place] | | | JULIANN [facility]VA [facility] | [facility] | [address] | | | TESTS | | | [...] | + + + + + | [facility] | [address] | [place] [address] | | | SERVICES, CORE | TABITHA [...] | + + + + + | [facility] | [address] | [place] [address] | | | SERVICES, CORE | TABITHA [...] | + + + + + | [facility] | [address] | [place] [address] | | | SERVICES, CORE | PARK [...] [facility] | [address] | [place] [address] | | | SERVICES, CORE | PARK [...] [facility] | [address] | [place] [address] | | | SERVICES, CORE | PARK [...] [facility] | [address] | [place] [address] | | | SERVICES, CORE | PARK [...] | | | LABORATORY | | | NIGERIEN | | | SERVICES, | | | [...] City/State/[facility] At [facility]code | Phone Number | | Organization | | | | + + + + + | [facility] | [address] | [place] [address] | | | SERVICES, CORE | PARK [...] [facility] | [address] | [place] [address] | | | SERVICES, CORE | PARK [...] | + + + + + | [facility] | [address] | [place] [address] | | | SERVICES, CORE | TABITHA [...] MARQUAM | [address] | [place], [place] | | | R[facility]ARDO POINT OF CARE | [address] | [address] | | | TESTS | | | [...] | + + + + + | [facility] | [address] | [place] [address] | | | SERVICES, CORE | PARK [...] MARQUAM | [address] | [place] | | | JULIANN SILVA OF CARE | [address] | [address] | | | TESTS | | | [...] - BLUAM | [address] | [place] | | | R[facility]O POINT [facility] CARE | [address] | [address] | | | TESTS | | | [...] | + + + + + | [facility] | [address] | [place] [address] | | | SERVICES, CORE | TABITHA [...] (H) | 70 - 99 mg/dL | [facility] - | | | GLUCOSE, | | [...] MARIA | [address] | [place], [place] | | | JULIANN SILVA OF ALEXIS | [facility] | [address] | | | TESTS | | | [...] MARIA | [address] | [place], [place] | | | JULIANN SILVA OF ALEXIS | [facility] | [address] | | | TESTS | | | [...] (H) | 70 - 99 mg/dL | [facility] - | | | GLUCOSE, [...] RODGERS | [address] | [place] | | | JULIANN SILVA OF CARE | [address] | [address] | | | TESTS | | | [...] [facility] | [address] | [place] [address] | | | SERVICES, CORE | PARK [...] | + + + + + | [facility] | [address] | [place] [address] | | | SERVICES, CORE | PARK [...] MARQUAM | [address] | [place] | | | JULIANN SILVA OF CARE | [address] | [address] | | | TESTS | | | [...] [facility] | [address] | [place] [address] | | | ARASH, ИРИНА | TABITHA [...] (H) | 70 - 99 mg/dL | [facility] - | | | GLUCOSE, [...] MARQUAM | [address] | [place] | | | JULIANN SILVA OF ALEX[place] | [facility] | [address] | | | TESTS | | | [...] RODGERS | [address] | [place] | | | R[facility]O POINT [facility] CARE | [address] | [address] | | | TESTS | | | [...] [facility] | [address] | [place] [address] | | | SERVICES, CORE | TABITHA [...] [facility] | [address] | [place] [address] | | | ИРИНА ANTOINE | PARK [...] - MARQUAM | [address] | [place], [place] | | | R[facility]ARDO POINT OF CARE | [address] | [address] | | | TESTS | | | [...] (H) | 70 - 99 mg/dL | [facility] - | | | GLUCOSE, [...] RODGERS | [address] | [place], [place] | | | JULIANN SILVA [facility] | [address] | [address] | | | TESTS | | | [...] | + + + + + | [facility] | [address] | [place] [address] | | | SERVICES, CORE | PARK [...] [facility] | [address] | [place] [address] | | | SERVICES, CORE | TABITHA [...] [facility] | [address] | [place] [address] | | | SERVICES, CORE | PARK [...] [facility] | [address] | [place] [address] | | | ИРИНА ANTOINE | TABITHA [...] | | | LABORATORY | | | NIGERIEN | | | SERVICES, | | | [...] | + + + + + | [facility] | [address] | [place] [address] | | | SERVICES, CORE | PARK [...] | + + + + + | [facility] | [address] | [place] [address] | | | SERVICES, CORE | TABITHA [...] [facility] | [address] | [place] [address] | | | ИРИНА ANTOINE | TABITHA [...] | + + + + + | [facility] | [address] | [place] [address] | | | SERVICES, CORE | TABITHA [...] (H) | 70 - 99 mg/dL | [facility] - | | | GLUCOSE, [...] RODGERS | [address] | [place] | | | JULIANN SILVA [facility] | [address] | [address] | | | TESTS | | | [...] MARQUAM | [address] | [place] | | | JULIANN SILVA OF [place] | [facility] | [address] | | | TESTS | | | [...] | + + + + + | [facility] | [address] | [place] [address] | | | SERVICES, CORE | TABITHA [...] (H) | 70 - 99 mg/dL | [facility] - | | | GLUCOSE, [...] RODGERS | [address] | [place] | | | [facility]O PO[facility] CARE | [address] | [address] | | | TESTS | | | [...] | + + + + + | [facility] | [address] | [place] [address] | | | SERVICES, ИРИНА | TABITHA [...] [facility] | [address] | [place] [address] | | | SERVICES, CORE | PARK [...] + | [facility] | [address] | [place] [address] | | | [place] | | | | + + + [...] R[facility]GERS | [address] | [place] | | | JULIANN SILVA OF CARE | [address] | [address] | | | TESTS | | | [...] MARQUAM | [address] | [place] | | | H[place], POINT OF CARE | [address] | [address] | | | TESTS | | | [...] [facility] | [address] | [place] [address] | | | SERVICES, CORE | PARK [...] | + + + + + | [facility] | [address] | [place] [address] | | | SERVICES, CORE | TABITHA [...] (H) | 70 - 99 mg/dL | [facility] - | | | GLUCOSE, [...] RODGERS | [address] | [place] | | | JULIANN S[facility]VA [facility] | [address] | [address] | | | TESTS | | | [...] MARQUAM | [address] | [place] | | | JULIANN SILVA OF CARE | [address] | [address] | | | TESTS | | | | + + + + + X-RAY PORTABLE CHEST 1 VIEW (03/18/2017 6:05 AM PDT) + + | Specimen | + + | | + + + + + | Narrative | Performed At | + + + | EXAM: NM CHEST 1 VIEW HISTORY: ECMO. Evaluate cannula placement. | [facility] | | COMPARISON: Yesterday FINDINGS: Endotracheal tube tip is | RADIOLOGY VOICE | | 2.5 cm above the jefferson. Enteric tube tip in the stomach. [place]-Олег | RECOGNITION | | catheter tip projects [...] Note | + + | Service Account, Secure-24 In Interface - 03/18/2017 8:39 AM PDT EXAM: NM CHEST 1 | | VIEW HISTORY: ECMO. Evaluate cannula placement.COMPARISON: YesterdayFINDINGS: | | Endotracheal tube tip is 2.5 cm above the jefferson. Enteric tube tip in the stomach. | | [place]-Олег catheter tip projects in the main pulmonary [...] ANA MARIA | [address] | [place], [place] | | | JULIANN SILVA OF CARE | [facility] | [address] | | | TESTS | | | [...] (H) | 60 - 99 mg/dL | [facility] - | | | GLUCOSE, [...] RODGERS | [address] | [place] | | | [facility]O POINT OF CARE | [facility] | [address] | | | TESTS | | | [...] | + + + + + | [facility] | [address] | [place] [address] | | | SERVICES, CORE | TABITHA [...] [facility] | [address] | [place] | | | RICARDO POINT OF CARE | [address] | [address] | | | TESTS | | | [...] BLUAM | [address] | [place], [place] | | | JULIANN SILVA OF CARE | [address] | [address] | | | TESTS | | | [...] | + + + + + | [facility] | [address] | [place] [address] | | | SERVICES, | [address] [...] [facility] | [address] | [place] [address] | | | SERVICES, | [address] [...] + + + + | PRODUCT | [id number] | | [facility] | | | UNIT [...] + + + + | EXPIRATION | [id number] | | [facility] | | | DATE [...] + + + + | BLOOD | [id number] | | [facility] | | | PRODUCT [...] | + + + + + | [facility] | [address] | [place] [address] | | | ARASH | [address] [...] (A) | 5 - 10 Minutes | [facility] - | | | CITRATED | | | [facility] | | | | | | JULIANN SILVA | | | | | | OF CARE | | | | | | TESTS | | + + + + + + | K - | 3.1 (A) | 1 - 3 Minutes | [facility] - | | | CITRATED [...] R[facility] | [address] | [place], [place] | | | JULIANN SILVA OF [place] | [address] | [address] | | | TESTS | | | [...] [facility] | [address] | [place] [address] | | | SERVICES, CORE | PARK [...] [facility] | [address] | [place] [address] | | | SERVICES, CORE | PARK [...] [facility] | [address] | [place] [address] | | | SERVICES, CORE | PARK [...] [facility] | [address] | [place] [address] | | | SERVICES, CORE | PARK [...] | | | LABORATORY | | | NIGERIEN | | | SERVICES, | | | [...] the MDRD equation recommended by the | [facility] | | National Kidney Disease [...] | + + + + + | [facility] | [address] | [place] [address] | | | SERVICES, CORE | TABITHA [...] | + + + + + | [facility] | [address] | [place] [address] | | | SERVICES, CORE | [address] | | | + + + + + MAGNESIUM, PLASMA (03/18/2017 1:19 AM PDT) + +-------+ + + + | Component | Value | Ref Range | Performed | Pathologist | | | | | At | Signature | + +-------+ + + + | MAGNESIUM,P | 2.3 | 1.8 - 2.5 mg/dL | [facility] | | | DENISEMA | | | [...] | + + + + + | [facility] | [address] | [place] [address] | | | ARASH, ИРИНА | PARK [...] [facility] | [address] | [place] [address] | | | ARASH, ИРИНА | TABITHA [...] (H) | 60 - 99 mg/dL | [facility] - | | | GLUCOSE, [...] MARIA | [address] | [place], [place] | | | JULIANN SILVA OF [place] | [address] | [address] | | | TESTS | | | [...] | + + + + + | [facility] | [address] | [place] [address] | | | SERVICES, ИРИНА | TABITHA [...] [facility] | [address] | [place] [address] | | | SERVICES, ИРИНА | TABITHA [...] (H) | 60 - 99 mg/dL | [facility] - | | | GLUCOSE, [...] [facility] | [address] | [place], [place] | | | JULIANN SILVA OF [place] | [facility] | [address] | | | TESTS | | | [...] [facility] | [address] | [place] | | | RICARDO POINT OF CARE | [address] | [address] | | | TESTS | | | [...] MARIA | [address] | [place], [place] | | | JULIANN SILVA OF [facility] | [address] | [address] | | | TESTS | | | [...] (H) | 60 - 99 mg/dL | [facility] - | | | GLUCOSE, [...] MARIA | [address] | [place], [place] | | | JULIANN SILVA OF [facility] | [facility] | [address] | | | TESTS | | | [...] | + + + + + | [facility] | [address] | [place] [address] | | | SERVICES, CORE | TABITHA [...] [facility] | [address] | [place] | | | JULIANN SILVA OF CARE | [address] | [address] | | | TESTS | | | [...] [facility] | [address] | [place] [address] | | | SERVICES, CORE | PARK [...] [facility] | [address] | [place] [address] | | | ИРИНА ANTOINE | TABITHA [...] [facility] | [address] | [place] [address] | | | SERVICES, CORE | TABITHA [...] | + + + + + | [facility] | [address] | [place] [address] | | | ИРИНА ANTOINE | TABITHA [...] [facility] | [address] | [place] [address] | | | SERVICES, CORE | TABITHA [...] [facility] [address] | [place], [place] | | | R[facility]ARDO POINT OF CARE | [address] | [address] | | | TESTS | | | [...] + + + | [facility] | [address] | [place], [place] | | | JULIANN SILVA OF CARE | [address] | [address] | | | TESTS | | | [...] [facility] | [address] | [place] [address] | | | SERVICES, CORE | PARK [...] [facility] | [address] | [place], [place] | | | JULIANN SILVA OF CARE | [address] | [address] | | | TESTS | | | [...] (H) | 60 - 99 mg/dL | [facility] - | | | GLUCOSE, [...] [facility] | [address] | [place], [place] | | | JULIANN SILVA OF [facility] | [address] | [address] | | | TESTS | | | [...] + + + + | PRODUCT | [id number] | | [facility] | | | UNIT [...] + + + + | EXPIRATION | [id number] | | [facility] | | | DATE [...] + + + + | BLOOD | [id number] | | [facility] | | | PRODUCT [...] | + + + + + | [facility] | [address] | [place] [address] | | | SERVICES, | [address] [...] + + + + | PRODUCT | [id number] | | [facility] | | | UNIT [...] + + + + | EXPIRATION | [id number] | | [facility] | | | DATE [...] + + + + | BLOOD | [id number] | | [facility] | | | PRODUCT [...] [facility] | [address] | [place] [address] | | | SERVICES, | [address] [...] [facility] | [address] | [place], [place] | | | RICARDO POINT OF CARE | [facility] | [address] | | | TESTS | | | [...] [facility] | [address] | [place] [address] | | | SERVICES, ИРИНА | TABITHA [...] | + + + + + | [facility] | [address] | [place] [address] | | | SERVICES, CORE | PARK [...] + + | [facility] | [address] [facility] | [place] [address] | | | SERVICES, CORE | TABITHA [...] [facility] | [address] | [place] [address] | | | SERVICES, CORE | TABITHA [...] | | | LABORATORY | | | NIGERIEN | | | SERVICES, | | | [...] 11 | 4 - 11 mmol/L | [facility] | | | GAP(ALB | [...] | + + + + + | [facility] | [address] [facility] | [place] [address] | | | ИРИНА ANTOINE | TABITHA [...] [facility] | [address] | [place] [address] | | | ИРИНА ANTOINE | PARK [...] | + + + + + | [facility] | [address] | [place] [address] | | | SERVICES, ИРИНА | TABITHA [...] [facility] | [address] | [place] [address] | | | SERVICES, CORE | TABITHA [...] [facility] | [address] | [place], [place] | | | [facility] POINT OF [facility] | [address] | [address] | | | TESTS | | | [...] | + + + + + | [facility] | [address] | [place] [address] | | | SERVICES, ИРИНА | TABITHA [...] [facility] | [address] | [place] | | | JULIANN SILVA [facility] [place] | [address] | [address] | | | TESTS | | | | + + + + + [facility] DUPLEX LOWER EXTREMITY RT (03/17/2017 12:31 [...] Note | + + | Service Account, Secure-24 In Interface - 03/17/2017 6:18 PM PDT [...] City/State/[facility] | Phone Number | | Organization | [...] Note | + + | Service Account, Secure-24 In Interface - 03/17/2017 6:17 PM PDT [...] [facility] | [address] | [place], [place] | | | JULIANN SILVA OF [place] | [facility] | [address] | | | TESTS | | | [...] [facility] | [address] | [place] [address] | | | SERVICES, CORE | PARK [...] Performed At | + + -------+ | [facility] | [facility] | | [facility]chocardiography | CARDIOLOG Y | | Laboratory [address] [place] [address], | | | [place] [address] Pt Name: | | | RON MCKEON Study Date/Time 03/17/2017 / 10:30:26 | | | AMMRN: [id number] Most recent | | | prior: 03/15/2017Acc #: [id number] No. | | | previous echos: 1DOB: 1955 61 years Heart | | | Rate: 139 bpmHeight: 69.0 | | | in Blood Pressure: 133/83 | | | mm/HgWeight: 258.0 | | | lb Gender: | | | MBSA: 2.30 m2 Order | | | ID: [id number] Clipper Machine Operator: Mauri Domingo LORENZO | | | [...] | | pre-diabetes who is transferred to [facility] with cardiogenic shock in the [...] | | | Report electronically signed by: [id number] Jen Ovalle MD, PhD | | | (03/17/2017, 1:53:40 PM) Final | | | | | |Report electronically signed by: [id number] Jen Ovalle MD, PhD (03/17/2017, | | |1:53:40 PM) | | | | | | | | | | | | Final | | + + -------+ + + | Procedure Note | + + | Interface, Cardiology Results - 03/17/2017 1:53 PM [facility] | | [facility] Echocardiography Laboratory [address] [place] [address] | | [place], [place] [address] Pt Name: RON Chaudhary | | MIKE Study Date/Time 03/17/2017 / 10:30:26 AMMRN: [id number] Most | | recent prior: 03/15/2017Acc #: [id number] No. previous echos: 1DOB: | | 1955 61 years Heart Rate: 139 bpmHeight: 69.0 in Blood | | Pressure: 133/83 mm/HgWeight: 258.0 lb Gender: MBSA: | | 2.30 m2 Order ID: [id number] Clipper Machine Operator: Mauri Domingo | | RDCSReferring Provider: Mellisa HajiPatient Location: 12KModalities Performed: | | Limited 2D, Color Doppler and Spectral Doppler Limited.Study Quality: Fair.Exam | | Indication: Heart failure; ECMO; s/p STEMIHistory: 61 year old male with a past medical | | history significant for hypertension, hyperlipidemia, ongoing tobacco use and | | pre-diabetes who is transferred to [facility] with cardiogenic shock in the [...] | | Scoring: Report electronically signed by: [id number] Jen Ovalle MD, PhD (03/17/2017, | | [...] | | | |Report electronically signed by: [id number] Jen Ovalle MD, PhD (03/17/2017, | |1:53:40 PM) | | | | | | | | Final | + + + + + + + | Performing | Address | City/State/Zipcode | Phone Number | | Organization | | | | + + + + + | [facility] | [address] | [place], [place] | | | CARDIOLOGY | [address] | [address] | | + + + + + [...] + + + + | [facility] | [address] | [place], [place] | | | JULIANN SILVA OF CARE | [address] | [address] | | | TESTS | | | [...] - [facility] | [address] | [place], [place] | | | R[facility]O POINT OF CARE | [facility] | [address] | | | TESTS | | | [...] + + | [facility] | [address] [facility] | [place] [address] | | | SERVICES, CORE | PARK [...] | + + + + + | [facility] | [address] | [place] [address] | | | SERVICES, CORE | TABITHA [...] [facility] | [address] | [place] [address] | | | SERVICES, CORE | TABITHA [...] [facility] | [address] | [place], [place] | | | JULIANN SILVA OF CARE | [address] | [address] | | | TESTS | | | [...] [facility] | [address] | [place] | | | R[facility]O POINT OF CARE | [address] | [address] | | | TESTS | | | [...] [facility] | [address] | [place] | | | JULIANN SILVA OF CARE | [address] | [address] | | | TESTS | | | [...] [facility] | [address] | [place] [address] | | | SERVICES, CORE | PARK [...] | + + + + + | [facility] | [address] | [place] [address] | | | SERVICES, CORE | [address] | | | + + + + + X-RAY PORTABLE CHEST 1 VIEW (03/17/2017 5:37 AM PDT) + + | Specimen | + + | | + + + + + | Narrative | Performed At | + + + | EXAM: NM CHEST 1 VIEW 03/17/17 04:53:29 HISTORY: On [...] Note | + + | Service Account, Secure-24 In Interface - 03/17/2017 9:44 AM PDT EXAM: NM CHEST 1 | | VIEW 03/17/17 04:53:29 [...] - [facility] | [address] | [place], [place] | | | [facility] | [facility] | [address] | | | TESTS | | | [...] [facility] | [address] | [place] [address] | | | SERVICES, CORE | PARK [...] | | | LABORATORY | | | NIGERIEN | | | SERVICES, | | | [...] + + | [facility] | [address] [facility] | [place] [address] | | | [facility] | [address] | | | + [...] | + + + + + | [facility] | [address] | [place] [address] | | | SERVICES, CORE | TABITHA [...] (H) | 60 - 99 mg/dL | [facility] - | | | GLUCOSE, | | [...] [facility] | [address] | [place] | | | JULIANN SILVA OF CARE | [address] | [address] | | | TESTS | | | [...] | + + + + + | [facility] | [address] | [place] [address] | | | SERVICES, CORE | PARK [...] | 56 (L) | >300 mmHg | [facility] | | | RATIO | | | [...] | + + + + + | [facility] | [address] | [place] [address] | | | SERVICES, CORE | TABITHA [...] | + + + + + | [facility] | [address] [facility] | [place] [address] | | | ИРИНА ANTOINE | TABITHA [...] | + + + + + | [facility] | [address] | [place] [address] | | | SERVICES, CORE | TABITHA [...] [facility] | [address] | [place] [address] | | | SERVICES, CORE | PARK [...] [facility] | [address] | [place] [address] | | | SERVICES, ИРИНА | PARK [...] | + + + + + | [facility] | [address] | [place] [address] | | | SERVICES, CORE | TABITHA [...] | + + + + + | [facility] | [address] [facility] | [place] [address] | | | SERVICES, ИРИНА | TABITHA [...] | + + + + + | [facility] | [address] | [place] [address] | | | ARASH, CORE | PARK [...] | + + + + + | [facility] | [address] | [place] [address] | | | SERVICES, CORE | TABITHA [...] + | [facility] | [address] [address] | [place], [place] | | | CARDIOLOGY | [address] | [address] | | + + + + + UV-EA-HVH-HB,POC RT (03/17/2017 12:44 AM PDT) + + [...] [facility] | [address] | [place], [place] | | | JULIANN SILVA OF CARE | [address] | [address] | | | TESTS | | | [...] [facility] | [address] | [place], [place] | | | JULIANN SILVA [facility] | [address] | [address] | | | TESTS | | | [...] [facility] | [address] | [place], [place] | | | RICARDO POINT OF CARE | [address] | [address] | | | TESTS | | | [...] [facility] | [address] | [place] [address] | | | SERVICES, CORE | PARK [...] [facility] | [address] | [place] | | | RICARDO POINT OF CARE | [address] | [address] | | | TESTS | | | [...] [facility] | [address] | [place] | | | JULIANN SILVA OF CARE | [address] | [address] | | | TESTS | | | [...] | + + + + + | [facility] | [address] | [place] [address] | | | ИРИНА ANTOINE | TABITHA [...] [facility] | [address] | [place] | | | CH[facility]STIE S[facility]VA CARE | [facility] | [address] | | | TESTS | | | [...] | + + + + + | [facility] | [address] | [place] [address] | | | SERVICES, CORE | TABITHA [...] (H) | 60 - 99 mg/dL | [facility] - | | | GLUCOSE, [...] + + + | [facility] | [address] | [place], [place] | | | RICARDO POINT OF CARE | [address] | [address] | | | TESTS | | | [...] [facility] | [address] | [place] | | | RICARDO POINT OF CARE | [facility] | [address] | | | TESTS | | | [...] | pause verifies correct patient, procedure, equipment, call center support representative | | | and site/side [...] | + + + + + | [facility] | [address] | [place] [address] | | | SERVICES, CORE | TABITHA [...] [facility] | [address] | [place] [address] | | | SERVICES, CORE | TABITHA [...] | + + + + + | [facility] | [address] | [place] [address] | | | SERVICES, CORE | PARK [...] [facility] | [address] | [place] [address] | | | SERVICES, CORE | PARK [...] | | | LABORATORY | | | NIGERIEN | | | SERVICES, | | | [...] | + + + + + | [facility] | [address] | [place] [address] | | | ИРИНА ANTOINE [...] [facility] | [address] | [place] [address] | | | SERVICES, CORE | PARK [...] [facility] | [address] | [place] [address] | | | SERVICES, CORE | TABITHA [...] [facility] | [address] | [place] | | | JULIANN SILVA OF CARE | [address] | [address] | | | TESTS | | | [...] - [facility] | [address] | [place], [place] | | | R[facility]ARDO POINT OF CARE | [address] | [address] | | | TESTS | | | [...] + + + | [facility] | [address] | [place] | | | RICARDO POINT OF CARE | [address] | [address] | | | TESTS | | | [...] [facility] | [address] | [place] | | | R[facility]ARDO POINT OF CARE | [address] | [address] | | | TESTS | | | [...] [facility] | [address] | [place] [address] | | | ИРИНА ANTOINE | TABITHA [...] | | | LABORATORY | | | NIGERIEN | | | SERVICES, | | | [...] | + + + + + | [facility] | [address] | [place] [address] | | | SERVICES, CORE | TABITHA [...] [facility] | [address] | [place] | | | R[facility]ARDO POINT OF CARE | [address] | [address] | | | TESTS | | | [...] [facility] | [address] | [place] [address] | | | ИРИНА ANTOINE | TABITHA [...] [facility] | [address] | [place] | | | JULIANN S[facility]VA [facility] | [address] | [address] | | | TESTS | | | | + + + + + OPERATION RECORD (03/16/2017 9:30 AM PDT) + + | Procedure Note | + + | Dale Mak MD - 03/15/2017 3:42 PM PDT Date of Service: 03/15/2017 Attending | | Surgeon:Ron Powell MD. Associate Trainer(s):Dale Mak MD. | | Preoperative Diagnoses: 1.Cardiogenic [...] The | | patient was transferred to [facility] for further management. At [facility], the patient continued | | [...] cannulation with micropuncture | | wire. A 7-Dutch sheath was placed in an antegrade direction down the SFA for distal | | perfusion. A 19-Dutch arterial cannula was placed in a retrograde [...] 03/15/2017 15:23:00DT: 03/15/2017 15:42:27Job #: | | [id number] | | | |A 19-Dutch arterial cannula was placed in a retrograde [...] |HS/MODL | | | | | | /[id number] | + + CBC (HEMOGRAM) ONLY (03/16/2017 [...] + + | [facility] | [address] [facility] | [place] [address] | | | ARASH, ИРИНА | TABITHA [...] | + + + + + | [facility] | [address] | [place] [address] | | | SERVICES, CORE | TABITHA [...] | + + + + + | [facility] | [address] | [place] [address] | | | SERVICES, CORE | PARK [...] - [facility] | [address] | [place], [place] | | | JULIANN SILVA OF CARE | [facility] | [address] | | | TESTS | | | [...] (H) | 60 - 99 mg/dL | [facility] - | | | GLUCOSE, [...] [facility] | [address] | [place] | | | RICARDO POINT OF CARE | [address] | [address] | | | TESTS | | | [...] [facility] | [address] | [place] | | | JULIANN SILVA OF [place] | [facility] | [address] | | | TESTS | | | | + + + + + X-RAY PORTABLE CHEST 1 VIEW (03/16/2017 5:44 AM PDT) + + | Specimen | + + | | + + + + + | Narrative | Performed At | + + + | EXAM: NM CHEST 1 VIEW HISTORY: Evaluate cannula placement. heart | [facility] | | failure. COMPARISON: Yesterday FINDINGS: Endotracheal | RADIOLOGY VOICE | | tube, [place]-Олег catheter and enteric tube remain in place. [...] Note | + + | Service Account, Secure-24 In Interface - 03/16/2017 8:27 AM PDT EXAM: NM CHEST 1 | | VIEW HISTORY: Evaluate cannula placement. heart failure.COMPARISON: YesterdayFINDINGS: | | Endotracheal tube, [place]-Олег catheter and enteric tube remain in place. [...] [facility] | [address] | [place], [place] | | | JULIANN SILVA OF CARE | [address] | [address] | | | TESTS | | | [...] [facility] | [address] | [place], [place] | | | JULIANN SILVA [facility] [place] | [facility] | [address] | | | TESTS | | | | + + + + + IC-KV-AKM-HBPOC RT (03/16/2017 3:42 AM PDT) + + [...] [facility] | [address] | [place] | | | R[facility]O POINT OF CARE | [address] | [address] | | | TESTS | | | [...] [facility] | [address] | [place] | | | JULIANN S[facility] | [address] | [address] | | | TESTS | | | [...] | + + + + + | [facility] | [address] | [place] [address] | | | SERVICES, CORE | TABITHA [...] [facility] | [address] | [place] | | | [facility] | [address] | [address] | | | TESTS | | | [...] [facility] | [address] | [place] [address] | | | ИРИНА ANTOINE | TABITHA [...] | + + + + + | [facility] | [address] | [place] [address] | | | SERVICES, CORE | PARK [...] | | | LABORATORY | | | NIGERIEN | | | SERVICES, | | | [...] [facility] | [address] | [place] [address] | | | SERVICES, CORE | PARK [...] [facility] | [address] | [place] [address] | | | SERVICES, CORE | TABITHA [...] | + + + + + | [facility] | [address] | [place] [address] | | | SERVICES, CORE | TABITHA [...] | + + + + + | [facility] | [address] | [place] [address] | | | SERVICES, CORE | [address] | | | + + + + + MAGNESIUM, PLASMA (03/16/2017 3:35 AM PDT) + +-------+ + + + | Component | Value | Ref Range | Performed | Pathologist | | | | | At | Signature | + +-------+ + + + | MAGNESIUM,P | 2.1 | 1.8 - 2.5 mg/dL | [facility] | | | LASMA | | | [...] | + + + + + | [facility] | [address] | [place] [address] | | | SERVICES, CORE | TABITHA [...] [facility] | [address] | [place], [place] | | | JULIANN S[facility]VA [facility] | [address] | [address] | | | TESTS | | | [...] | + + + + + | [facility] | [address] | [place] [address] | | | ARASH, ИРИНА | [address] [...] (H) | 60 - 99 mg/dL | [facility] - | | | GLUCOSE, [...] [facility] | [address] | [place] | | | JULIANN SILVA OF CARE | [address] | [address] | | | TESTS | | | [...] | + + + + + | [facility] | [address] [facility] [address] | [place] [address] | | | SERVICES, CORE | TABITHA [...] | | | LABORATORY | | | NIGERIEN | | | SERVICES, | | | [...] | + + + + + | [facility] | [address] | [place] [address] | | | ARASH, CORE | [address] | | | + + + + + IO-WO-GYU-HB,POC RT (03/16/2017 12:22 AM PDT) + + [...] [facility] | [address] | [place] | | | [facility]INT [facility] CARE | [address] | [address] | | | TESTS | | | [...] [facility] | [address] | [place] | | | J[facility]ANN S[facility]VA [facility] CARE | [address] | [address] | | | TESTS | | | [...] [facility] | [address] | [place] | | | JUL[facility]ANN SILVA [facility] CARE | [address] | [address] | | | TESTS | | | [...] [facility] | [address] | [place], [place] | | | R[facility]O POINT OF CARE | [address] | [address] | | | TESTS | | | | + + + + + X-RAY PORTABLE CHEST 1 VIEW (03/15/2017 9:44 PM PDT) + + | Specimen | + + | | + + + + + | Narrative | Performed At | + + + | EXAM: NM CHEST 1 VIEW HISTORY: Evaluate new endotracheal [...] Note | + + | Service Account, Secure-24 In Interface - 03/16/2017 8:27 AM PDT EXAM: NM CHEST 1 | | VIEW HISTORY: Evaluate [...] [facility] | [address] | [place] | | | JULIANN SILVA OF CARE | [facility] | [address] | | | TESTS | | | [...] (H) | 60 - 99 mg/dL | [facility] - | | | GLUCOSE, [...] [facility] | [address] | [place] | | | JULIANN SILVA OF [facility] | [address] | [address] | | | TESTS | | | [...] [facility] | [address] | [place] [address] | | | SERVICES, CORE | PARK [...] | + + + + + | [facility] | [address] | [place] [address] | | | SERVICES, CORE | TABITHA [...] | + + + + + | [facility] | [address] | [place] [address] | | | SERVICES, ИРИНА | TABITHA [...] | Ambubag and suction available at bedside. [facility] Mac 4 used to | | | visualize airway, Grade III view with old blood and new blood | | | present in laryngopharynx plus edema. A [employer] Airway Exchange | | | catheter was [...] [facility] | [address] | [place], [place] | | | JULIANN SILVA OF CARE | [address] | [address] | | | TESTS | | | | + + + + + XS-HP-GYQ-HB,POC RT (03/15/2017 7:39 PM PDT) + + [...] [facility] | [address] | [place] | | | JULIANN S[facility]VA [facility] | [address] | [address] | | | TESTS | | | [...] [facility] | [address] | [place] | | | R[facility]O POINT OF CARE | [address] | [address] | | | TESTS | | | [...] [facility] | [address] | [place] | | | [facility]O [facility] | [facility] | [address] | | | TESTS | | | | + + + + + X-RAY PORTABLE CHEST 1 VIEW (03/15/2017 5:51 PM PDT) + + | Specimen | + + | | + + + + + | Narrative | Performed At | + + + | STUDY: NM CHEST 1 VIEW 03/15/17 17:40:08 COMPARISON: 03/15/17 [...] Interface - 03/15/2017 6:20 PM PDT STUDY: NM CHEST 1 | | VIEW 03/15/17 17:40:08COMPARISON: [...] given by: Power of | | | returner Patient identity confirmed per policy: Yes Team Pause: | | | Immediatly prior to the procedure a pause per protocol was called. A | | | pause verifies correct patient, procedure, equipment, call center support representative | | | and site/side [...] modified Seldinger technique (a | | | unilvgtw-rnuh-ait-zqnizs-kfil-yaqa-rxlshtx-jno-wlswovid) was used for | | | vessel [...] Name: Ron Mckeon MRN: | | | [id number] 03/15/2017 Time: 5:26 PM Diagnosis: shock At [...] Ramon Alvarado | | | MD [place], [facility] Emergency Medicine Personal Pager: [phone] | | | | | + + + LACTATE (03/15/2017 4:49 PM PDT) + + + + + + | Component | Value | Ref Range | Performed | Pathologist | | | | | At | Signature | + + + + + + | LACTATE | 7.5 () | mmol/L | [facility] | | | [...] | + + + + + | [facility] | [address] | [place] [address] | | | SERVICES, CORE | TABITHA [...] (H) | 60 - 99 mg/dL | [facility] - | | | GLUCOSE, [...] [facility] | [address] | [place], [place] | | | [facility] | [address] | [address] | | | TESTS | | | | + + + + + PROCEDURE NOTE (03/15/2017 4:19 PM PDT) + + + | Narrative | Performed At | + + + | Rodney Hilliard MD 03/15/2017 4:19 PM PROCEDURE: MAKRY | | | INSERTION Patient arrived in [...] [facility] | [address] | [place], [place] | | | [facility] | [address] | [address] | | | TESTS | | | | + + + + + X-RAY PORTABLE CHEST 1 VIEW (03/15/2017 4:03 PM PDT) + + | Specimen | + + | | + + + + + | Narrative | Performed At | + + + | EXAM: NM CHEST 1 VIEW 03/15/17 15:42:37 HISTORY: ECMO [...] Note | + + | Service Account, Secure-24 In Interface - 03/15/2017 6:18 PM PDT EXAM: NM CHEST 1 | | VIEW 03/15/17 15:42:37 [...] [facility] | [address] | [place], [place] | | | [facility] | [address] | [address] | | | TESTS | | | [...] [facility] | [address] | [place], [place] | | | [facility] | [address] | [address] | | | TESTS | | | [...] [facility] | [address] | [place], [place] | | | [facility] | [address] | [address] | | | TESTS | | | [...] | + + + + + | [facility] | [address] | [place] [address] | | | SERVICES, CORE | TABITHA [...] | + + + + + | [facility] | [address] | [place] [address] | | | ARASH, ИРИНА | TABITHA [...] | + + + + + | [facility] | [address] | [place] [address] | | | SERVICES, CORE | PARK [...] | + + + + + | [facility] | [address] [facility] | [place] [address] | | | SERVICES, CORE | TABITHA [...] | | | LABORATORY | | | NIGERIEN | | | SERVICES, | | | [...] | + + + + + | [facility] | [address] | [place] [address] | | | SERVICES, CORE | TABITHA [...] Division of Cardiothoracic Surgery | | | [place] [facility] Mail Code [id number] [address] [facility] | | | [place] [address] | | + + + X-RAY PORTABLE CHEST 1 VIEW (03/15/2017 2:32 PM PDT) + + | Specimen | + + | | + + + + + | Narrative | Performed At | + + + | STUDY: NM CHEST 1 VIEW 03/15/17 14:21:08 COMPARISON: 03/15/17. [...] Note | + + | Service Account, [employer] In Interface - 03/15/2017 2:46 PM PDT STUDY: NM CHEST 1 | | VIEW 03/15/17 14:21:08COMPARISON: [...] + + + + | PRODUCT | [id number] | | [facility] | | | UNIT [...] + + + + | EXPIRATION | [id number] | | [facility] | | | DATE [...] + + + + | BLOOD | [id number] | | [facility] | | | PRODUCT [...] [facility] | [address] | [place] [address] | | | SERVICES, | [address] [...] + + + + | PRODUCT | [id number] | | [facility] | | | UNIT [...] + + + + | EXPIRATION | [id number] | | [facility] | | | DATE [...] + + + + | BLOOD | [id number] | | [facility] | | | PRODUCT [...] [facility] | [address] | [place] [address] | | | SERVICES, | [address] [...] + + + + | PRODUCT | [id number] | | [facility] | | | UNIT [...] + + + + | EXPIRATION | [id number] | | [facility] | | | DATE [...] + + + + | BLOOD | [id number] | | [facility] | | | PRODUCT [...] [facility] | [address] | [place] [address] | | | SERVICES, | [address] [...] + + + + | PRODUCT | [id number] | | [facility] | | | UNIT [...] + + + + | EXPIRATION | [id number] | | [facility] | | | DATE [...] + + + + | BLOOD | [id number] | | [facility] | | | PRODUCT [...] | + + + + + | [facility] | [address] | [place] [address] | | | ARASH, | TABITHA ALICEA | | | | TRANSFUSION MEDICINE | | | | + + + + + GE-QI-NXN-HB,POC RT (03/15/2017 1:23 PM PDT) + + + + + + | Component | Value | Ref Range | Performed | Pathologist | | | | | At | Signature | + + + + + + | HCO3 | 19.6 (L) | 21 - 28 mmol/L | [facility] - | | | ARTERIAL, | | [...] BLUAM | [address] | [place], [place] | | | JULIANN SILVA OF CARE | [facility] | [address] | | | TESTS | | | [...] MARIA | [address] | [place], [place] | | | RICARDO POINT OF CARE | [address] | [address] | | | TESTS | | | [...] Performed At | + + + | [facility] | [facility] | | [facility] | CARDIOLOGY | | Laboratory [address] [place] [address] | | | [place] [address] Pt Name: | | | RON Neena MCKEON Study Date/Time 03/15/2017 / 12:54:21 | | | PMMRN: [id number] Most recent | | | prior: -Acc #: [id number] No. previous | | | echos: 0DOB: 1955 61 years Heart Rate: | | | 145 bpmHeight: Blood | | | Pressure: 90/67 mm/HgWeight: 249.0 | | | lb Gender: | | | MBSA: 2.34 m2 Order | | | ID: [id number] Clipper Machine Operator: Vahid Parmar [facility] | | | Referring Provider: Gaurav Castellanos [...] Report electronically signed by: | | | [id number] Yajaira Johnson MD (03/15/2017, 3:38:52 PM) Final | | | | | | | | | | | | Final | | + + + + + | Procedure Note | + + | Interface, Cardiology Results - 03/15/2017 3:38 PM [facility] [employer] [facility] | | [facility] Echocardiography Laboratory [address] [place] [address] | | [place], [place] [address] Pt Name: RON Chaudhary | | MIKE Study Date/Time 03/15/2017 / 12:54:21 PMMRN: [id number] Most | | recent prior: -Acc #: [id number] No. previous echos: 0DOB: 1955 61 | | years Heart Rate: 145 bpmHeight: Blood Pressure: 90/67 | | mm/HgWeight: 249.0 lb Gender: MBSA: 2.34 m2 | | Order ID: [id number] Clipper Machine Operator: Vahid Parmar [facility] SERVICESReferring Provider: | | Gaurav Castellanos Location: 12KModalities [...] values Report electronically signed by: | | [id number] Yajaira Johnson MD (03/15/2017, 3:38:52 PM) Final [...] | | | |Report electronically signed by: [id number] Yajaira Johnson MD (03/15/2017, 3:38:52 PM) | | | | | | | | Final | + + + + + + + | Performing | Address | City/State/[facility] | Phone Number | | Organization | | | | + + + + + | [facility] | [address] | [place], [place] | | | CARDIOLOGY | [address] | [address] | | + + + + + X-RAY PORTABLE CHEST 1 VIEW (03/15/2017 12:46 PM PDT) + + | Specimen | + + | | + + + + + | Narrative | Performed At | + + + | STUDY: NM CHEST 1 VIEW 03/15/17 12:12:08 COMPARISON: None. [...] Note | + + | Service Account, [employer] In Interface - 03/15/2017 1:10 PM PDT STUDY: NM CHEST 1 | | VIEW 03/15/17 12:12:08COMPARISON: [...] DEPT OF | [address] | [place], [place] | | | CARDIOLOGY | [address] | [address] | | + + + + + [...] [facility] | [address] | [place] [address] | | | SERVICES, | [address] [...] [facility] | [address] | [place] [address] | | | SERVICES, | [address] [...] [facility] | [address] | [place] [address] | | | ARASH, ИРИНА | [address] [...] [facility] | [address] | [place] [address] | | | SERVICES, ИРИНА | TABITHA [...] [facility] | [address] | [place] [address] | | | SERVICES, | [address] [...] [facility] | [address] | [place] [address] | | | SERVICES, CORE | P[address] [...] | + + + + + | [facility] | [address] [facility] | [place] [address] | | | SERVICES, CORE | TABITHA [...] | + + + + + | [facility] | [address] | [place] [address] | | | SERVICES, CORE | TABITHA [...] | | | LABORATORY | | | NIGERIEN | | | SERVICES, | | | [...] | + + + + + | [facility] | [address] | [place] [address] | | | SERVICES, CORE | [address] | | | + + + + + US-RF-DNL-DWAINEPOC RT (03/15/2017 12:16 PM PDT) + + [...] [facility] | [address] | [place], [place] | | | R[facility]O [facility] | [address] | [address] | | | TESTS | | | [...] of unspecified type of vessel, | | muckleshoot or graft | + + | Tongue [...] 5:37 | | | | | dose, Hortense 03/29/17 at 0530 | | AM PDT [...] | | | | ONCE, 1 dose, [facility] 03/19/17 at 1415 | | PM [...] | | | | ONCE, 1 dose, [facility] 03/20/17 at | | AM [...] 10:04 | | | | | dose, Hortense 03/22/17 at 1000 | | AM PDT [...] | First dose on [facility] 03/19/17 at | | AM PDT [...] 4:45 | | | | | dose, [facility] 03/19/17 at 1630 | | PM PDT | | | | + +-------+ +-------+---+---+ +---+---+ | | | +---+---+ + +-------+ +-------+---+---+ | furosemide (LASIX) injection 20 | Given | 03/20/20 | 20 mg | | | | mg 20 mg, intravenous, ONCE, 3:07 | | | | | dose, [facility] 03/20/17 at 0400 | | [...] | | | | | | Starting [facility] 03/19/17 at 1900, | | | [...] | | | | | Until [facility] 04/02/17 at 2030, | | | [...] | | | | ONCE, 1 dose, [facility]ense 03/15/17 at 1815 | | PM PDT [...] | | | | | NEEDED, Starting [facility] 03/26/17 at | | | | | [...] | | | | | Until [facility] 04/02/17 at 2030, severe | | [...] | | | 1 dose, [facility] 03/18/17 at 0130 | | AM PDT [...]
--- OUTSIDE RECORDS SUMMARY | 2019-02-08 20:36 | XMS ---
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 Security Cafeteria Aide Events No recent Security Events currently on file CRITERIA MET - Group Notification - 6 ED Visits in 6 Months - [facility] - Has Care Guidelines - [facility] - 2 Visits in 30 Days CARE PROVIDERS Guido Lainez Internal Medicine: Pulmonary Disease 10/18/2018-Current PHONE: Unknown KIMMIE GONZALEZ Internal Medicine 01/11/2019-Current JE PHONE: [phone] YOUNG AYALA [facility] [place] [facility]: Sports Medicine 06/22/2018-Current PHONE: Unknown Young Ayala DO Primary Care 10/22/2015-Current PHONE: Unknown Ananda has no Care Guidelines for this patient. Care History Medical/Surgical 01/11/2019 [facility] - PATIENT HAS AN APT WITH DR GONZALEZ ON 01/14/19 FOR FOLLOW UP TO ED VISITS. - PATIENT HAS DECLINED SERVICES FROM [facility]. 10/18/2018 [facility] - Patient is currently established with [facility]. If patient is seen in the ED during business hours. Please contact CHWs at [facility]. Care Recommendation: This patient has had 5 or more Emergency Department visits in the last 12 months.\T\nbsp; Patient requires education on the scope and purpose of the ED as an acute care provider not a Primary Care Provider and should not be utilized for chronic conditions.\T\nbsp; These are guidelines and the provider should exercise clinical judgment when providing care. 12/07/2017 [facility] - Patient is currently utilizing PCP Dr Matson and has been referred to a rehabilitation director. - All chronic conditions please refer to [...] ED please contact Community Health WorkerLamar at [phone]. These are guidelines and the provider should exercise clinical judgment when providing care. [facility] MO[facility] 18 [facility] TOTAL 20 NOTE: Visits indicate total known visits. ED/UCC VISIT TRACKING (12 MO.) 02/08/2019 20:35 [facility] TYPE: Emergency COMPLAINT: - SOB 02/03/2019 20:41 [facility] TYPE: Emergency COMPLAINT: - ABNORMAL LAB RESULT 02/01/2019 08:35 [facility] TYPE: Emergency COMPLAINT: - POSS DEHYDRATION 01/22/2019 19:53 [facility] TYPE: Emergency COMPLAINT: - SOB 01/14/2019 06:06 [facility] TYPE: Emergency COMPLAINT: - POSS RESPIRATORY DISTRESS 01/10/2019 08:02 [facility] TYPE: Emergency COMPLAINT: - SOB DIAGNOSES: - Dyspnea, unspecified - Other oysterman (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 - Pure hypercholesterolemia, unspecified - Acquired absence of other specified parts of digestive tract - Heart failure, unspecified - 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 - Personal history [...] disease, or unspecified chronic kidney disease - [facility] (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 - Personal history of nicotine dependence - Chronic obstructive pulmonary disease, unspecified - Other snf (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 - Pure hypercholesterolemia, unspecified [...] DIAGNOSES: - Old myocardial infarction - Other oysterman (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 - 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 DIAGNOSES: - low bp - Adverse effect of beta-adrenoreceptor antagonists, initial encounter - Weakness - Hypotension 08/18/2018 00:07 [facility] TYPE: Emergency COMPLAINT: - SOB DIAGNOSES: - Hypertensive heart disease with heart failure - Disorder of kidney and ureter, unspecified - Personal history of nicotine dependence - Other snf (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 - Heart failure, unspecified - Shortness of breath - Old myocardial infarction - Chronic obstructive pulmonary disease with (acute) exacerbation - Pure hypercholesterolemia, unspecified 08/09/2018 09:56 [facility] TYPE: Emergency COMPLAINT: - L HIP PAIN/NO INJURY DIAGNOSES: - Pain in left hip - Sciatica, left side - Pure hypercholesterolemia, unspecified - Essential (primary) hypertension - Other oysterman (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 - Old myocardial infarction 06/26/2018 06:43 [facility] TYPE: Emergency COMPLAINT: - SOB DIAGNOSES: - Heart failure, unspecified - Shortness of breath - Hypertensive heart disease with heart failure - Chronic obstructive pulmonary disease with (acute) exacerbation - Other oysterman (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 06/17/2018 02:41 [facility] TYPE: Emergency COMPLAINT: - SOB DIAGNOSES: - Other oysterman (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 - Dyspnea, unspecified - Essential (primary) hypertension - Presence of coronary angioplasty implant and graft - 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 - Personal history of nicotine dependence - Shortness of breath 05/01/2018 07:47 [facility] TYPE: Emergency DIAGNOSES: - Chest pain, unspecified - Non-ST elevation (NSTEMI) myocardial infarction - Acute pulmonary edema - Shortness of Breath 05/01/2018 03:23 [facility] TYPE: Emergency COMPLAINT: - SOB DIAGNOSES: - Shortness of breath - 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 - Non-ST elevation (NSTEMI) myocardial infarction - Heart failure, unspecified - Other snf (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 - Personal history of nicotine dependence 04/17/2018 06:31 [facility] TYPE: Emergency COMPLAINT: - CHEST PAIN DIAGNOSES: - Personal history of nicotine dependence - Chest pain, unspecified - Precordial pain INPATIENT VISIT TRACKING (12 MO.) 02/03/2019 21:13 [facility] TYPE: Observation COMPLAINT: - AYLIN DIAGNOSES: - Chronic ischemic heart disease, unspecified - Acquired absence of other specified parts of digestive tract - Other snf (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 - Presence of automatic (implantable) cardiac defibrillator - Chronic pain syndrome - Presence of coronary angioplasty implant and graft - Hyperlipidemia, unspecified - Hypotension, unspecified - [facility] (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 of antithrombotics/antiplatelets - Chronic obstructive pulmonary disease, unspecified - Unspecified inflammatory spondylopathy, cervical region - Essential (primary) hypertension - Presence of cardiac pacemaker - Acute kidney failure, unspecified - 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 - Chronic kidney disease, stage 4 (severe) - Gastro-esophageal reflux disease without esophagitis - Hypertensive chronic kidney disease with stage 1 through stage 4 chronic kidney disease, or unspecified chronic kidney disease - Atherosclerotic heart disease of ambler coronary artery without angina pectoris - CHCF (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 of opiate analgesic - Chronic systolic (congestive) heart failure - Old myocardial infarction - Unspecified inflammatory spondylopathy, thoracic region - Anemia in chronic kidney disease 01/23/2019 14:11 [facility] TYPE: Medical Surgical COMPLAINT: - SOB DIAGNOSES: - Acute kidney failure, unspecified - Unspecified inflammatory spondylopathy, thoracic region - Elevated white blood cell count, unspecified - Unspecified inflammatory spondylopathy, cervical region - Chronic obstructive pulmonary disease, unspecified - Hyperlipidemia, unspecified - Gastro-esophageal reflux disease without esophagitis - Chronic pain syndrome - Presence of coronary angioplasty implant and graft - Dependence on supplemental oxygen - Other snf (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 - Anemia in chronic kidney disease - Acute and chronic respiratory failure with hypoxia - 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 - CHCF (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 of antithrombotics/antiplatelets - Presence of automatic (implantable) cardiac defibrillator - Chronic kidney disease, stage 4 (severe) - 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 (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 of opiate analgesic - Atherosclerotic heart disease of ambler coronary artery without angina pectoris - Acute on chronic systolic (congestive) heart failure - Old myocardial infarction - Constipation, unspecified 01/14/2019 06:07 [facility] TYPE: Observation COMPLAINT: - CHF DIAGNOSES: - Presence of automatic (implantable) cardiac defibrillator - Acute respiratory failure with hypoxia - Atherosclerotic heart disease of ambler coronary artery without angina pectoris - 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 (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 of antithrombotics/antiplatelets - Shortness of breath - Chronic kidney disease, stage 4 (severe) - CHCF (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 of opiate analgesic - Chronic pain syndrome - 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 - Gastro-esophageal reflux disease without esophagitis - Acute on chronic systolic (congestive) heart failure - Presence of coronary angioplasty implant and graft - Type 2 diabetes mellitus with diabetic chronic kidney disease - Hyperlipidemia, unspecified - Type 2 diabetes mellitus with hyperglycemia - Acute kidney failure, unspecified - Other oysterman (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 - Chronic ischemic heart disease, unspecified - Old myocardial infarction 12/11/2018 09:26 [facility] TYPE: Medical Surgical COMPLAINT: - CHF DIAGNOSES: - Presence of automatic (implantable) cardiac defibrillator - Hyperlipidemia, unspecified - [facility]CF (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 - Personal history of nicotine dependence - Hypotension due to drugs - Chronic obstructive pulmonary disease, unspecified - Cervicalgia - [facility]CF (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 of antithrombotics/antiplatelets - Acute on [...] count, unspecified - Atherosclerotic heart disease of ambler coronary artery without angina pectoris - Acute kidney failure, unspecified - Other snf (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 - Acute and chronic respiratory failure with hypoxia - Type 2 diabetes mellitus with diabetic chronic kidney disease - Gastro-esophageal reflux disease without esophagitis - Dependence on supplemental oxygen - CHCF (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 of oral hypoglycemic drugs - Opioid dependence, uncomplicated 11/02/2018 22:09 [facility] TYPE: Medical Surgical COMPLAINT: - DECOMPENSATED HEART FAILURE DIAGNOSES: - Hyperlipidemia, unspecified - Type 2 diabetes mellitus with diabetic chronic kidney disease - Chronic kidney disease, stage 3 (moderate) - Coronary angioplasty status - Personal history of nicotine dependence - Presence of automatic (implantable) cardiac defibrillator - CHCF (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 of opiate analgesic - Psychophysiologic insomnia - Chronic pain syndrome - Old myocardial infarction - 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 (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 of antithrombotics/antiplatelets - Chronic obstructive pulmonary disease, unspecified - Idiopathic sleep related nonobstructive alveolar hypoventilation - Gastro-esophageal reflux disease without esophagitis - Acute on chronic systolic (congestive) heart failure - Acute respiratory failure with hypoxia - 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 (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 of oral hypoglycemic drugs - 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 - Other oysterman (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 - Atherosclerotic heart disease of ambler coronary artery without angina pectoris 10/16/2018 06:04 [facility] TYPE: Observation COMPLAINT: - DECOMPENSATED HEART FAILURE DIAGNOSES: - Ischemic cardiomyopathy - Type 2 diabetes mellitus with diabetic chronic kidney disease - Chronic pain syndrome - Dependence on supplemental oxygen - Unspecified inflammatory spondylopathy, cervical region - Chronic obstructive pulmonary disease, unspecified - CHCF (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 of oral hypoglycemic drugs - Personal history of nicotine dependence - CHCF (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 - Presence of automatic (implantable) cardiac defibrillator - Other oysterman (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 - Acute on chronic systolic (congestive) heart failure - Presence of coronary angioplasty implant and graft - Atherosclerotic heart disease of ambler coronary artery without angina pectoris - Old myocardial infarction - Chronic respiratory failure with hypoxia - Shortness of breath - Gastro-esophageal reflux disease without esophagitis - CHCF (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 of opiate analgesic - Hypertensive chronic kidney disease with stage 1 through stage 4 chronic kidney disease, or unspecified chronic kidney disease - 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 DIAGNOSES: - Heart failure, unspecified - Atherosclerotic heart disease of ambler coronary artery without angina pectoris - Family history of other specified conditions - Atherosclerotic heart disease of ambler coronary artery with other forms of angina pectoris - Chronic systolic (congestive) heart failure - Coronary Artery Disease - Other forms of angina pectoris - Ischemic cardiomyopathy - Other forms of dyspnea - Essential (primary) hypertension - Presence of automatic (implantable) cardiac defibrillator 05/01/2018 07:47 [facility] TYPE: General Medicine DIAGNOSES: - Acute pulmonary edema - Non-ST elevation (NSTEMI) myocardial infarction - Chest pain, unspecified - Illness, unspecified [email or web address]
--- NOTE | 2019-02-09 00:34 | NUR ---
PT ADMITTED 2335 TO CCU PER OSVALDO FROM ED, ABLE TO STAND AND PIVOT FROM STRETCHER TO BED WITHOUT SOB. STATES FEELING MUCH BETTER. PREFERS TO SIT AT BEDSIDE FEELS BREATHS EASIER SITTING UP. DOES THIS AT HOME ALSO. WHEN ASKED WHAT HAPPENED PT STATED HE OVERDID ON FLUIDS. WHEN INQUIRED FURTHER STATES HE WAS OUT TAKING HIS MOTHER TO APPOINTMENTS AND DRANK SOME OF HER WATER, AND A 7-UP. 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 DID REMIND PT THAT LIFT SLAB OPERATOR SAL[employer] HAD SALTY MEAT. PT DECLINES BIPAP AT THIS TIME, IS WEARING OXYMASK AT 5 L. VOIDED 300ML CL URINE. 40MG LASIX REPEATED. GIVEN 10MG MELATONIN FOR SLEEP AND 1 NORCO FOR NECK PAIN. PT CONT TO SIT AT BEDSIDE, WILL PUT LEGS IN BED ON OWN.
--- NOTE | 2019-02-09 01:16 | NUR ---
VOIDING AFTER LASIX WAS GIVEN.
--- NOTE | 2019-02-09 01:27 | NUR ---
PT ATTEMPTED TO LAY DOWN TO BREATH WITH HOB ABOUT 25 DEGREES. UNABLE TO DO SO AT THIS TIME, "I FEEL THE GUGLING COMIE UP." DOZES WHILE SITTING UP LEANING ON TRAY TABLE.
--- NOTE | 2019-02-09 03:02 | NUR ---
SLEEPING WITH HEAD ON BEDSIDE TABLE.
--- NOTE | 2019-02-09 03:21 | NUR ---
AWAKE, HAD VOIDED 650ML. C/O WHITEHEAD 03/16, REQUESTING TYLENOL.GIVEN 500MG PO. 02 DEC TO 3L OXYMASK SATS HAVE BEEN HIGH 90'S. STILL UNABLE TO LAY DOWN.
--- NOTE | 2019-02-09 03:42 | NUR ---
PT IN BED ASLEEP, SATS DEC TO 84%, 02 INC BACK TO 5L OXYMASKE. SATS 90-91
--- NOTE | 2019-02-09 04:15 | NUR ---
PT SATS CONT TO BE LOW 83% . PT IS IN BED ON SIDE WITH CHIN TUCKED.RT LILIBETH HERE AND 02 INC TO 8L OXYMASK AND PUT A ROLLED TOWEL UNDER CHIN. THIS BROUGHT SATS UP TO 90'S. RR 12-16 WHILE PT ASLEEP.
--- NOTE | 2019-02-09 05:23 | NUR ---
NOW SLEEPING SITTING UP AT EDGE OF BED LEANING ON TRAY TABLE 02 5L OXYMASK.
--- NOTE | 2019-02-09 05:49 | NUR ---
LAB DRAWN, CONT TO SIT AT EDGE OF BED.
--- NOTE | 2019-02-09 07:30 | NUR ---
CALL LIGHT ON. pt REQUESTED MORE WATER, EDUCATION DONE ON FLUID RESTRICTION. PLAN MADE FOR THE DAY. WATER PROVIDED. pt REPORTED 8/10 PAIN. PRN PAIN MED GIVEN WITH SCHEDULED MEDS (SEE MAR). pt EATING BREAKFAST. CALL LIGHT WITHIN REACH.
--- NOTE | 2019-02-09 09:00 | NUR ---
BP READING LOW. pt RESTING ON SIDE WITH EYES CLOSED, RESPIRATIONS REGULAR AND UNLABORED. RIGHT ARM RESTING ON TOP OF BODY. RT INCREASED O2 RATE TO 15 L VIA OXY MASK TO RAISE SAT >90. WILL RETAKE BP WHEN pt AWAKES. CALL LIGHT WITHIN REACH. URINAL EMPTIED.
--- NOTE | 2019-02-09 10:06 | NUR ---
pt RESTING WITH EYES CLOSED, RESPIRATIONS REGULAR AND UNLABORED, O2 SAT 96%. CALL LIGHT WITHIN REACH.
--- NOTE | 2019-02-09 10:40 | NUR ---
pt SITTING UP ON SIDE OF BED. BP TAKEN (SEE VITALS). pt STATES "I'M DOING OKAY". O2 TITRATED TO 5L VIA OXYMASK. URINAL EMPTIED. CALL LIGHT WITHIN REACH.
--- NOTE | 2019-02-09 12:27 | NUR ---
CALL LIGHT ON. pt REQUESTED ICE WATER. LUNCH ORDERED. ASSESSMENT DONE. MEDICATIONS GIVEN (SEE MAR). pt SITTING ON SIDE OF BED. WINDOW CURTAIN UP. AGREED TO DAILY CARES "LATER THIS AFTERNOON". CALL LIGHT WITHIN REACH.
--- NOTE | 2019-02-09 13:48 | NUR ---
pt SITTING ON SIDE OF BED. REQUESTED PAIN MEDS FOR 8/10 PAIN. PRN GIVEN (SEE MAR). PASTORAL CARE AT BEDSIDE. pt UPDATED ON PLAN OF CARE.
--- NOTE | 2019-02-09 14:19 | NUR ---
PT TO FLOOR VIA CHAIR ACCOMPANIED BY ALFONSO GARCÍA. TO ROOM 124 AT 1400. ON RA, OXYGEN SATURATION LEVEL 99%. 1+ EDEMA TO ANKLES. PT EDUCATED REGARDING NEED TO CALL FOR ASSISTANCE PRIOR TO ANY TRANSFERS. PT VERBALIZED UNDERSTANDING. ORIENTED PT TO ROOM. PT SITTING UP IN RECLINER, ON CONTINUOUS PULSE OX.
--- NOTE | 2019-02-09 16:38 | NUR ---
PT SITTING UP IN RECLINER RESTING WITH EYES CLOSED, OXYGEN SATURATION LEVEL 99-100% ON RA. AWOKE PT EASILY WITH VERBAL STIMULI. GAVE SCHEDULED POTASSIUM. PT DENIED PAIN, DENIED NEEDS AT THIS TIME. PERSONAL SUPPLIES AND CALL LIGHT IN REACH.
--- NOTE | 2019-02-09 17:19 | NUR ---
PT TRANSFERED FROM CCU TO ROOM 124 AT 1400 THIS SHIFT. PT HAS BEEN SITTING UP IN RECLINER SINCE ARRIVAL TO FLOOR. PT HAS DENIED PAIN SINCE ARRIVAL TO FLOOR. PT ON RA, OXYGEN SATURATION LEVEL AT 90% OR GREATER PER CONTINUOUS PULSE OX. PT ALERT, ORIENTED X 4. PT URINATING QUANTITY SUFFICIENT, CLEAR DILUTE URINE. PT ON HEART HEALTHY 1600 ML FLUID RESTRICTION DIET. PT HAS HAD A TOTAL OF 1050 ML OF THIS 1600 ML ALLOTMENT THUS FAR.
--- NOTE | 2019-02-09 19:20 | NUR ---
IN ROOM FOR REPORT, PT IS AWAKE IN THE CHAIR. HE DENIES NEEDS AT THIS TIME. CALL LIGHT IS WITHIN REACH.
--- NOTE | 2019-02-09 19:53 | NUR ---
ASSISTED PT BACK TO BED FROM CHAIR SBA. UPDATED HER OF CHANGE TO IV FLUIDS AND WILL RETURN TO HANG THEM SOON WE GET THEM FROM AUTO STRIPER.
--- NOTE | 2019-02-09 20:38 | EKG ---
[facility] [address] [facility] [address] [place] [address] Signed Ventricular-paced rhythm with frequent premature ventricular complexes Biventricular pacemaker detected Abnormal ECG When compared with ECG of 22-JAN-2019 20:00, premature ventricular complexes are now present Vent. rate has increased BY 29 BPM Confirmed by KIMMIE GONZALEZ MD ([id number]) on 02/09/2019 8:38:41 PM Electronically Signed By: KIMMIE GONZALEZ MD 02/09/19 2038 PATIENT NAME: RON MCKEON Electrocardiogram DATE OF : 53 PHYSICIAN: KIMMIE GONZALEZ MD REPORT #: [id number] REPORT IS CONFIDENTIAL AND NOT TO BE RELEASED WITHOUT AUTHORIZATION
--- NOTE | 2019-02-09 21:15 | NUR ---
IN ROOM TO ASSESS PT AND ADMINISTER MEDICATIONS. PT REPORTS CHRONIC PAIN BUT STATES A 6/10 IS TOLERABLE. LEG PAIN AT THIS TIME IS 8/10, TYLENOL ADMINISTERED AND GABAPENTIN. PT'S IS IN THE ROOM AT THIS TIME. HE DENIES NEEDS. CALL LIGHT IS CLOSE.
--- NOTE | 2019-02-09 22:55 | NUR ---
ADMINISTERED MELATONIN, PT DENIES FURTHER NEEDS AT THIS TIME. PT ALSO STATES HIS PAIN HAS IMPROVED. CALL LIGHT IS CLOSE AND PT DENIES FURTHER NEEDS.
--- NOTE | 2019-02-10 00:05 | NUR ---
PT IS RESTING WITH EYES CLOSED, RESPIRATIONS ARE EVEN AND NONLABORED. CALL LIGHT IS WITHIN REACH.
--- NOTE | 2019-02-10 01:55 | NUR ---
PT IS RESTING WITH EYES CLOSED, RESPIRATIONS ARE EVEN AND NONLABORED ON CPOX WNL. CALL LIGHT IS CLOSE.
--- NOTE | 2019-02-10 02:33 | NUR ---
HEARD ALARM SOUNDING, PT OXYGEN WAS READING 84, PT ON ROOM AIR. PLACED ON 2L OXIMASK, WITHIN MIN, SATS INCREASED TO 90%.
--- NOTE | 2019-02-10 04:04 | NUR ---
PT IS RESTING WITH EYES CLOSED, RESPIRATIONS ARE EVEN AND NONLABORED ON 2L OXYMASK. CALL LIGHT IS CLOSE.
--- NOTE | 2019-02-10 04:17 | NUR ---
PT AWOKE WITH 8/10 PAIN. ADMINISTERED NORCO. PT DENIES SOB AND HAS 2L OXYMASK IN PLACE WHILE SLEEPING. HE DENIES FURTHER NEEDS AT THIS TIME. CALL LIGHT IS CLOSE.
--- NOTE | 2019-02-10 06:53 | NUR ---
PT IS AWAKE IN CHAIR. VS & I&O ENTERED. PT DENIES FURTHER NEEDS. CALL LIGHT IS WITHIN REACH.
--- NOTE | 2019-02-10 07:47 | NUR ---
PT SITTING ON SIDE OF BED WHICH IS HIS USUAL POSITION. FAMILIAR STATEMENT FROM PT-"I DID IT AGAIN". HE FELT HE HAD NO ONE TO BLAME BUT HIMSELF. CONSUMING TOO MUCH LIQUID. DID MAKE HIS DAUGHTERS' GRADUATION, NOW HAS A [place] TO GO TO AND PLANS ON BEING THERE. PT ADMITTED HE HAS TO COUNT HIS FLUID INTAKE AND PAY BETTER ATTENTION. HAD PRAYER WITH PT-STAFF READY TO MOVE TO M/S. WILL FOLLOW NEEDED
--- NOTE | 2019-02-10 08:24 | NUR ---
REPORT RECEIVED FROM [facility] SHIFT RN. PT UP IN [facility]. CALL LIGHT IN REACH. DENIES NEEDS.
--- NOTE | 2019-02-10 10:30 | NUR ---
ASSESSMENT COMPLETED. LUNGS CLEAR. HEART SOUNDS REGULAR. +1 EDEMA BILAT LE. PT DENEIS SOB OR CHEST PAIN. PT IS AAO X3. DENIES NEEDS AT THIS TIME. CALL LIGHT IN REACH.
--- NOTE | 2019-02-10 11:34 | NUR ---
PT OUT AMBULATING HALLS WITH STUDENT NURSE RAFAEL. TOLERATING WELL.
--- NOTE | 2019-02-10 12:48 | NUR ---
PT SITTING IN CHAIR, RESTING ON STAND. HE MENTIONED HE SLEPT WELL AND HOPES TO BE DC'D TODAY. EXTENDED A BLESSING, WILL FOLLOW NEEDED
[2019-02-10] MEDS ORDERED: METOLAZONE2.5 MG PO ×2 (14:17→14:18)
--- NOTE | 2019-02-10 14:48 | NUR ---
PATIENT'S L AC IV DC'D. TIP INTACT.
--- NOTE | 2019-02-10 15:16 | NUR ---
DISCHARGE INSTRUCTIONS GIVEN. PT ABLE TO TEACH BACK.
--- NOTE | 2019-02-10 15:21 | NUR ---
DISCHARGE INSTRUCTIONS GIVEN. PT ABLE TO TEACH BACK.
--- NOTE | 2019-02-14 12:21 | NUR ---
Heart failure follow up phone call- Patient discharged on 02/10/19 . He and his state he is doing fine. Is sleeping off and on. Was able to state change of Metolazone and Thursday and he has the medications. He stated his fluid restriction is 1600 ml per day and that he is following this. Reminded patient of previous measures discussed to treat dry mouth. His follow up with PCP Marshall is tomorrow and he will inquire on if he is stable enough to continue Cardiac Rehab program at [place]. His cardiology appointment with Daquan Alvarado is next week. Invited patient to call this service PRN.
== END 2019-02-10 15:15 | disposition home or self-care (01) ==
LOC: ED 20:34 → CCU 20:36 → MS 02-09 14:00
PROVIDERS: ADMIT Internal Medicine
DX: I50.23 Acute on chronic systolic (congestive) heart failure (principal); I25.9 Chronic ischemic heart disease, unspecified; I25.2 Old myocardial infarction; N17.9 Acute kidney failure, unspecified; K21.9 Gastro-esophageal reflux disease without esophagitis; N18.4 Chronic kidney disease, stage 4 (severe); E78.5 Hyperlipidemia, unspecified; G89.4 Chronic pain syndrome; I25.10 Atherosclerotic heart disease of native coronary artery without angina pectoris; D63.1 Anemia in chronic kidney disease; J96.01 Acute respiratory failure with hypoxia; Z95.810 Presence of automatic (implantable) cardiac defibrillator; Z95.5 Presence of coronary angioplasty implant and graft; Z79.02 Long term (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 of antithrombotics/antiplatelets; Z79.82 Long term (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; Z79.899 Other long term (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
CPT/HCPCS: 36415; 71045; 80048; 80053; 82550; 82553; 83735; 83874; 83880; 84484; 85025; 93005; 93010; 94660; 94760; 96372; 96374; 96376; 99285-25; G0378; J1650; J1940

== ENCOUNTER 2019-02-13 10:27 | Emergency (ER) | payer OTHER ==
[~2019-02-13] VITALS: Ht 175.3 cm; Wt 88.8 kg
--- OUTSIDE RECORDS SUMMARY | ~2019-02-13 | XMS | Encounter Summary ---
Demographics + + + | Address | [address] | | | [place] [address] | + + + | Home Phone | | + + + | Preferred Language | Unknown | + + + | Marital Status | | + + + | Roman Catholic Affiliation | NRP | + + + | Race | White | + + + | Ethnic Group | Not or | + + + Author + + + | Author | [facility] | + + + | Organization | [facility] | + + + | Address | Unknown | + + + | Phone | Unavailable | + + + Support + + + + + | Name | Relationship | Address | Phone | + + + + + | Venice Will | ECON | [address] | | | | | [place] [address] | | + + + + + Care Team Providers + +------+ + | Care Cloth Classer Name | Role | Phone | + +------+ + | Chato Matson MD | PCP | | + +------+ + Encounter Details +--------+ + + + + | Date | Type | Department | Care Team | Description | +--------+ + + + + | 03/19/ | Procedure | 6A Intra Op [facility] | | | | 2016 | Pass | [facility] | | | | | | Admitting Desk | | | | | | Located on the 9th | | | | | | floor [address] | | | | | | [facility] | | | | | | [place], [place] | | | | | | [address] | | | +--------+ + + + [...] | + + + +--------+ + + + +---------+ + | Alcohol [...]
--- OUTSIDE RECORDS SUMMARY | ~2019-02-13 | XMS | Encounter Summary ---
Demographics + + + | Address | [address] | | | [place] [address] | + + + | Home Phone | | + + + | Preferred Language | Unknown | + + + | Marital Status | | + + + | Adventist Affiliation | Unknown | + + + | Race | Unknown | + + + | Ethnic Group | Unknown | + + + Author + + + | Author | [facility] | | | and [place] | + + + | Organization | [facility] | | | and [place] | + + + | Address | Unknown | + + + | Phone | Unavailable | + + + Support + + + + + | Name | Relationship | Address | Phone | + + + + + | [place] Will | ECON | [place] | | | | | [address] | | + + + + + Care Team Providers + +------+ + | Care Supervisor [employer] Name | Role | Phone | + [...] | | | involving | [address] [place] | | | | | creek | [address] | [place] | | | | | coronary | [address] | [address] | | | | | artery of | Phone: | Phone: | | | | | creek heart | [phone] | [phone] | | | | | without | Fax: | Fax: | | | | | angina | [phone] | [phone] | | | | | pectoris | | | + + + + + + + Encounter Details +--------+---------+ + + + | Date | Type | Department | Care Team | Description | +--------+---------+ + + + | 11/30/ | Office | [facility] | Carolina Randy, | Coronary artery | | 2019 | Visit | [facility] | MD [address] | disease involving | | | | REHABILITATION [address] [facility], | creek coronary | | | | [address] [place] | [place] [address] | artery of creek | | | | [place] [address] | [phone] | heart without angina | | | | [phone] | | pectoris (Primary | | | [...] of this encounter Progress Gael Ortega - 11/30/2018 1000 PDTFormatting of this note might be different from the orig [facility] CARDIAC REHABILITATION [address] [facility] [address] Cardiac Rehab Date: 11/30/2018 Patient Information Patient Name: Bob Will Date of : 1955 Age: 63 y.o. Encounter Diagnoses Code Name Primary? I25.10 Coronary artery disease involving creek coronary artery of creek heart without angina pectoris Yes Z98.61 Post PTCA Number of Visits Approved: 34 kx Taken Medications Today? Yes Any Changes in Medications? No Yes, Terosomide Any Problems to Report? No Got tired real quick, Stopped exercise. Patient is on a fluid restriction, 200cc of H2O and called it a day. Ventricular paced rhythm without ectopy. Pre O2: 97%, SBP prior to exercise 98/60; during e xercise 98/62, 2nd BP during exercise 84/60. Post fluid intake 90/56. Compliant with medications and therapeutic lifestyle changes. Continue monitored exercise. Any abnormal vital signs or rhythm strips will be reported in progress note. Electronically signed by: Gael Woo, 11/30/2018 14:03 Patient Name: Bob Will/: 1955/ ly signed by Gael Woo at 11/30/2018 14:09 PDTdocumented in this encounter Plan of Treatment +--------+ + + + + | Date | Type | Specialty | Care Team | Description | +--------+ + + + + | 03/08/ | Office | Nephrology | [facility], | | | 2018 | Visit | | [facility] [address] | | | | | | [address] [facility] | | | | | | [address] | | | | | | [phone] | | | | | | | | +--------+ + + + + | 03/24/ | Procedure | Cardiology | | | | 2019 | visit | | | | +--------+ + + + + | 03/24/ | Office | Cardiology | Jenny, | | | 2018 | Visit | | ADARSH [address] | | | | | | [address] [place], | | | | | | [place] [address] | | | | | | [phone] | | | | | | | | +--------+ + + + + documented as of this encounter Visit Diagnoses + + | Diagnosis | + + | Coronary artery disease involving creek coronary artery of creek heart without | | angina pectoris - Primary | + + | Post PTCA Postsurgical percutaneous transluminal coronary angioplasty status | + + documented in this encounter"
--- OUTSIDE RECORDS SUMMARY | ~2019-02-13 | XMS | Encounter Summary ---
Demographics + + + | Address | [address] | | | [place] [address] | + + + | Home Phone | | + + + | Preferred Language | Unknown | + + + | Marital Status | | + + + | Mandaen Affiliation | Unknown | + + + [...] [place] | | | | | [address] | | + + + + + Care Team Providers + +------+ + | Care Equity Holder Name | Role | Phone | + [...] | | | | | | [place] [address] | | | | | | [phone] | | | +--------+ + + + [...] 03/08/ | Office | [facility]ph[facility] | [facility] | | | [facility] | Visit | | AD[facility] [address] | | | | | | [address] [facility] | | | | | | [address] | | | | | | [address] | | | | | | | [...] [place], | | | | | | [place] [address] | | | | | | [phone] | | | | | | | | +--------+ + + + + documented as of this encounter Visit Diagnoses Not on filedocumented in this encounter"
--- OUTSIDE RECORDS SUMMARY | ~2019-02-13 | XMS | Encounter Summary ---
Demographics + + + | Address | [address] | | | [place] [address] | + + + | Home Phone | | + + + | Preferred Language | Unknown | + + + | Marital Status | | + + + | Christianity Affiliation | Unknown | + + + | Race | Unknown | + + + | Ethnic Group | Unknown | + + + Author + + + | Author | [facility] | | | and [place] | + + + | Organization | [facility] | | | and [place] | + + + | Address | Unknown | + + + | Phone | Unavailable | + + + Support + + + + + | Name | Relationship | Address | Phone | + + + + + | [place] Will | [place] | [place] | | | | | [address] | | + + + + + Care Team Providers + +------+ + | Care Watershed Manager Name | Role | Phone | [...] | | | involving | [address] [place] | | | | | [place] | [place], [place] | [place], [place] | | | | | coronary | [address] | [address] | | | | | artery of | Phone: | Phone: | | | | | [place] heart | [phone] | [phone] | | | | | without | Fax: | Fax: | | | | | angina | [phone] | [phone] | | | | | pectoris | | | + + + + + + + Encounter Details +--------+---------+ + + + | Date | Type | Department | Care Team | Description | +--------+---------+ + + + | 11/18/ | Office | [facility] | Randy Figueroa, | Coronary artery | | 2019 | Visit | [facility] | [address] | disease involving | | | | REH[address]IL[address]ATION [address] | [place], | [place] coronary | | | | [address] [place] | [place] [address] | artery of [place] | | | | [place] [address] | [phone] | heart without angina | | | | [phone] | | pectoris (Primary | | | [...] might be different from the orig inayocasta. [facility]ATION [address] [facility] [address] Cardiac Rehab Date: 11/18/2018 Patient Information Patient Name: Bob Will Date of : 1955 Age: 63 y.o. Encounter Diagnoses Code Name Primary? I25.10 Coronary artery disease involving [place] coronary artery of [place] heart without angina pectoris Yes Z98.61 Post [...] 03/08/ | Office | [facility] | [facility] | | ADARSH [address] | | | | | | [address] [facility] | | | | | | [address] | | | | | | [id number] | | | | | | | [...] [place], | | | | | | [place] [address] | | | | | | [phone] | | | | | | | | +--------+ + + + + documented as of this encounter Visit Diagnoses + + | Diagnosis | + + | Coronary artery disease involving [place] coronary artery of [place] heart without | | angina pectoris - Primary | + + | Post PTCA Postsurgical percutaneous transluminal coronary angioplasty status | + + documented in this encounter"
--- OUTSIDE RECORDS SUMMARY | ~2019-02-13 | XMS | Encounter Summary ---
Demographics + + + | Address | [address] | | | [place] [address] | + + + | Home Phone | | + + + | Preferred Language | Unknown | + + + | Marital Status | | + + + | Hindu Affiliation | Unknown | + + + | Race | Unknown | + + + | Ethnic Group | Unknown | + + + Author + + + | Author | [facility] | | | and [place] | + + + | Organization | [facility] | | | and [place] | + + + | Address | Unknown | + + + | Phone | Unavailable | + + + Support + + + + + | Name | Relationship | Address | Phone | + + + + + | [place] Will | ECON | [place] | | | | | [address] | | + + + + + Care Team Providers + +------+ + | Care Head Of Art Name | Role | Phone | + [...] | | involving | [address] [place] | | | | | [place] | [address] | [place] | | | | | coronary | [address] | [address] | | | | | artery of | Phone: | Phone: | | | | | [place] heart | [phone] | [phone] | | | | | without | Fax: | Fax: | | | | | angina | [phone] | [phone] | | | | | pectoris | | | + + + + + + + Encounter Details +--------+---------+ + + + | Date | Type | Department | Care Team | Description | +--------+---------+ + + + | 11/23/ | Office | [facility] | Rahullindacathy Lindaangusleo, | Acute on chronic | | 2019 | Visit | MED CTR CARD[facility] | MD [address] | systolic congestive | | | | RE[address] | [facility], | heart failure (HCC) | | | | [address] [place] | [place] [address] | (Primary Dx) | | | | [place] [address] | [phone] | | | | | [phone] | | | +--------+---------+ + + + [...] of this encounter Progress Jonah Coker-Cheri Kendrick, SOFTWARE ENGINEER KERNEL - 11/23/2018 1000 PDTFormatting of this note might be diff erent from the original. [facility] CARDIAC REHABILITATION [address] [facility] [address] Cardiac Rehab Date: 11/23/2018 Patient Information Patient [...] | 03/08/ | Office | Nephrology | [facility], | | | 2018 | Visit | | ADARSH [address] | | | | | | [address] , [facility] | | | | | | [address] [place] | | | | | | [id number] | | | | | | | | +--------+ + + + + | 03/24/ | Procedure | Cardiology | | | | 2018 | visit | | | | +--------+ + + + + | 03/24/ | Office | Cardiology | Jenny, | | | 2018 | Visit | | ADARSH Santo [address] | | | | | | [place], | | | | | | [place] [address] | | | | | | [phone] | | | | | | | | +--------+ + + + + documented as of this encounter Visit Diagnoses + + | Diagnosis | + + | Acute on chronic systolic congestive heart failure (HCC) - Primary Acute on chronic | | systolic heart failure | + + documented in this encounter"
--- OUTSIDE RECORDS SUMMARY | ~2019-02-13 | XMS | Encounter Summary ---
Demographics + + + | Address | [address] | | | [place] [address] | + + + | Home Phone | | + + + | Preferred Language | Unknown | + + + | Marital Status | | + + + | Faith Affiliation | NRP | + + + | Race | White | + + + | Ethnic Group | Not or | + + + Author + + + | Author | [facility] | + + + | Organization | [facility] | + + + | Address | Unknown | + + + | Phone | Unavailable | + + + Support + + + + + | Name | Relationship | Address | Phone | + + + + + | Venice Mckeon | ECON | [address] | | | | | [place] [address] | | + + + + + Care Team Providers + +------+ + | Care Director Of Strategic Programs Name | Role | Phone | + +------+ + | Yesi Guerrero MD | PCP | | + +------+ + Reason for Referral Diagnostic Testing +--------+--------+ + + + + | Status | Reason | Specialty | Diagnoses / | Referred By | Referred To | | | | | Procedures | Contact | Contact | +--------+--------+ + + + + | Closed | | Radiology | Procedures | [facility] | [facility] | | | | | MRI SPINE | Spine [facility] | [address] | | | | | CERVICAL [address] | [address] | [address] | | | | | CONTRAST | [address] | [address] | | | | | | Mail Code: | Mailcode: | | | | | | [facility] | [address] | | | | | | for Health | [place] | | | | | | and Healing, | Research | | | | | | 8th Floor | [place] | | | | | | [facility] [place] | [place], [place] | | | | | | [address] | [address] | | | | | | Phone: | Phone: | | | | | | [phone] | [phone] | | | | | | Fax: | Fax: | | | | | | [phone] | [phone] | +--------+--------+ + + + + Reason for Visit + + + | Reason | Comments | + + + | New patient | | | consultation | | + + + | Neck pain | | + + + | Arm Pain | | + + + Consultation (Routine) +--------+--------+ + + + + | Status | Reason | Specialty | Diagnoses / | Referred By | Referred To | | | | | Procedures | Contact | Contact | +--------+--------+ + + + + | Closed | | Pain | Diagnoses | Cesar, | Tra, | | | | Management | Chronic | Yesi Pierce, | MD Sapna | | | | | pain | MD GUERRERO | [address] | | | | | syndrome | FAMILY | Ave | | | | | Degeneration | MEDICINE | [place], [place] | | | | | of cervical | [address] | [address] | | | | | | [address] | Phone: | | | | | intervertebr | [place], | [phone] | | | | | al disc | [place] [address] | Fax: | | | | | chronic | Phone: | [phone] | | | | | spine pain | [phone] | | | | | | cervical | Fax: | | | | | | stenosis | [phone] | | +--------+--------+ + + + + Encounter Details +--------+---------+ + + + | Date | Type | Department | Care Team | Description | +--------+---------+ + + + | 02/18/ | Office | [facility] at | Sapna Dutta MD | Neck pain; 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 | [facility] 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 [address] | [address] | arthropathy, | | | | [address] | [place], [place] | cervical; Cervical | | | | Code: [facility] | [address] | spondylosis without | | | | for Health and | [phone] | myelopathy; | | | | Healing, 8th Floor | | Impingement syndrome | | | | [place], [place] | | of left shoulder; | | | | [address] | | Physical | | | | [phone] | | deconditioning; 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; Smoking; | | | | | | Cervicogenic | | | | | | headache | +--------+---------+ + + + Social History + + + +--------+------+ | Tobacco Use | Types | Packs/Day | Years | Date | | | | | Used | | + + + +--------+------+ | Current Every Day | Cigarettes | 0.5 | | | | Smoker | | | | | + + + +--------+------+ + + +---------+ + | Alcohol Use [...] + + + | Blood Pressure | 134/87 | 02/19/2012 10:35 AM | | | | | PDT | | + + + + + | Pulse | 84 | 02/19/2012 10:35 AM | | | | | PDT | | + + + + + | Temperature | - | - | | + + + + + | Respiratory Rate | 16 | 02/19/2012 10:35 AM | | | | | PDT | | + + + + + | Oxygen Saturation | 97% | 02/19/2012 10:35 AM | | | | | PDT | | + + + + + | Inhaled Oxygen | - | - | | | Concentration | | | | + + + + + | Weight | 98.9 kg (218 lb) | 02/19/2012 10:35 AM | | | | | PDT | | + + + + + | Height | 175.3 cm (5' 9") | 02/19/2012 10:35 AM | | | | | PDT | | + + + + + | Body Mass Index | 32.19 | 02/19/2012 10:35 AM | | | | | PDT | | + + + + + documented in this encounter Patient Instructions Patient Instructions Sapna Dutta MD - 02/19/2012 11:40 AM PDTFormatting of this note robyn ht be different from the original. 1. Follow up with Dr. Yesi Guerrero MD regarding recommendations from today's appointme nt. 2. Work on local physical therapy that is independent home exercise program-based (do your homework!). 3. Follow up if: a) shoulder work is not going well, for surgical evaluation (call first, if this is the chuck e) b) you wishe to try the medial branch block/radiofrequency medial branch denervation option Stopping Smoking: After Your Visit Your Care Instructions Cigarette smokers crave the nicotine in cigarettes. Giving it up is much harder than simply changing a habit. Your body has to stop craving the nicotine. It is hard to quit, but you c an do it. There are many tools that people use to quit smoking. You may find that combining tools works best for you. There are several steps to quitting. First you get ready to quit. Then you get support to h elp you. After that, you learn new skills and behaviors to become a nonsmoker. For many peop le, a necessary step is getting and using medicine. Your doctor will help you set up the plan that best meets your needs. You may want to atten d a smoking cessation program to help you quit smoking. When you choose a program, look for one that has proven success. Ask your doctor for ideas. You will greatly increase your [facility] es of success if you take medicine as well as get counseling or join a cessation program. Some of the changes you feel when you first quit tobacco are uncomfortable. Your body will miss the nicotine at first, and you may feel short-tempered and grumpy. You may have trouble sleeping or concentrating. Medicine can help you deal with these symptoms. You may struggle with changing your smoking habits and rituals. The last step is the tricky one: Be prepared for the smoking urge to continue for a time. This is a lot to deal with, but keep at it. Yo u will feel better. Follow-up care is a mosquera part of your treatment and safety. Be sure to make and go to all ap pointments, and call your doctor if you are having problems. It s also a good idea to know your test results and keep a list of the medicines you take. How can you care for yourself at home? Ask your family, friends, and coworkers for support. You have a better chance of quittin g if you have help and support. Join a support group, such as Nicotine Anonymous, for people who are trying to quit smok ing. Consider signing up for a smoking cessation program, such as the [employer] [facility]'s [place] from Smoking program. Set a quit date. Pick your date carefully so that it is not right in the middle of a big deadline or stressful time. Once you quit, do not even take a puff. Get rid of all ashtrays and lighters after your last cigarette. Clean your house and your clothes so that they do n ot smell of smoke. Learn how to be a nonsmoker. Think about ways you can avoid those things that make you r each for a cigarette. Avoid situations that put you at greatest risk for smoking. For some people, it is hard to have a drink with friends without smoking. For others, they might skip a coffee break wit h coworkers who smoke. Change your daily routine. Take a different route to work or eat a meal in a different p lace. Cut down on stress. Calm yourself or release tension by doing an activity you enjoy, suc h as reading a book, taking a hot bath, or gardening. Talk to your doctor or pharmacist about nicotine replacement therapy, which replaces the nicotine in your body. You still get nicotine but you do not use tobacco. Nicotine replacem ent products help you slowly reduce the amount of nicotine you need. These products come in several forms, many of them available bcnv-blu-qbmgavn: Nicotine patches Nicotine gum and lozenges Nicotine inhaler Ask your doctor about bupropion (Wellbutrin) or varenicline (Chantix), which are prescri ption medicines. They do not contain nicotine. They help you by reducing withdrawal symptoms , such as stress and anxiety. Some people find hypnosis, acupuncture, and massage helpful for ending the smoking habit . Eat a healthy diet and get regular exercise. Having healthy habits will help your body m ove past its craving for nicotine. Be prepared to keep trying. Most people are not successful the first few times they try to quit. Do not get mad at yourself if you smoke again. Make a list of things you learned an d think about when you want to try again, such as next week, next month, or next year. Where can you learn more? To learn more about "Stopping Smoking: After Your Visit", log into your [employer] account at [email or web address]. You can enter Y522 in the iCIMS" search box. Not on [employer]? Review the [employer] section of your After Visit Summary for directions on ho w to sign up. 7450-1155 [employer]. Care instructions adapted under license by [facility] [employer] [place]. This care instruction is for use with your licensed healthcar e professional. If you have questions about a medical condition or this instruction, always ask your healthcare professional. [employer] disclaims any warranty or liabili ty for your use of this information. Content Version: 9.3.52183; Last Revised: March 26, 2011 Information about Cervical and Lumbar Medial Branch Blocks and/or Denervation You and your doctor have decided that it is appropriate for you to have diagnostic medial b ranch (facet joint nerve) blocks. The purpose of this procedure is to find out if the facet joints in your neck or back are responsible for your pain. If these blocks reveal this to be the case, you may consider medial branch denervation, or a permanent nerve block. The follo wing text will help explain the goals of this therapy, as well as the procedures. Please fee l free to ask your doctors and nurses for more detailed information or explanations if these issues are not clear to you. Therapeutic Rationale: Throughout the entire spine, there are joints called facet joints. T hese joints are located in pairs along the posterior (back) aspect of the spinal column, but are not very close to the actual spinal cord. These joints are small and somewhat fragile, and are prone to injury in certain types of traumatic, inflammatory, or degenerative conditi ons. They also have a nerve supply that is capable of referring pain to the central neck, lo w back, and buttocks. Unfortunately, the joints cannot be repaired or replaced. However, the nerve supply to the joint can be affected. That is what these procedures do. In some cases, spinal fusion surger y is an option. The denervation process has the potential advantage treating pain while avoi ding or delaying surgery. Diagnostic medial branch (facet nerve) blocks: In both the cervical (neck) and the lumbar ( low back) regions, the nerve that supplies the facet joint can be temporarily blocked with l ocal anesthetic (numbing medication, like Novocaine). This procedure allows you and your doc tor to assess the role that these joints play in your pain problem. If your pain is made sig nificantly better for a temporary period after the diagnostic block, this means that the lashawn nt is at least partly responsible for your pain. If this is the case, the block will be repe ated on one other occasion to verify the effect. During the procedure, you will be placed on the examination table in the X-ray suite. The d octor will use the X-ray beam to locate the appropriate position of the block. He/she will u se local anesthetic to numb your skin. After that, he/she will place a sterile needle, with the guidance of the X-ray beam, into the vicinity of the medial branch nerve. When the posit ion is acceptable, he/she will inject a small amount of local anesthetic. You may experience some discomfort during the procedure, but your doctor will be as gentle as possible. Remember that you are in charge, and may request for a pause if you feel that i t is necessary. Typically, you will not receive sedation during this part of the procedure. This is important because the sedation medications will interfere with the interpretation of the results of the procedure. You will be under the care of the doctor providing the proced ure and a pain management nurse, who will be monitoring you and updating you during the proc edure. If your pain is not affected by the diagnostic block, it may be that the facet joint is not responsible for your pain. In this case, you and your doctor will need to find a different plan to treat your pain. Radiofrequency Denervation of the Facet Joint: If you have had a series of diagnostic block s and you and your doctor have elected to try a assisted solution, the nerve to the facet j oints can be destroyed by the use of a special technique called radio frequency denervation. In this technique, a special needle is placed with the assistance of X-ray guidance. When the needle is in the correct position, it is attached to the radio frequency generator machine. This machine gives your doctor the ability to test the location of the needle in r elationship to the nerves in the area. When your doctor is sure that the location is appropr iate and safe, he/she will use the radio frequency generator to heat the tissue at the end o f the needle. This will destroy the nerve that supplies the facet joint. This procedure will be repeated at several levels if necessary, as determined by the result s of your diagnostic blocks. Since this procedure is more uncomfortable than the diagnostic blocks, and since the important decisions have been made by this time, you will have sedatio n and pain relieving medication administered by the intravenous route during the denervation . The sedation is administered by the nurse, under the direct supervision of the doctor. Goals of Facet Denervation: This procedure is not designed to eliminate all of your pain. U nfortunately, that result is not usually a realistic expectation. However, it may substantia lly reduce the pain that you experience directly due to your facet joints. This will allow y ou to perform physical therapy that you were previously unable to do. This post-procedural p hysical therapy is very important to your recovery, and is generally different than physical therapy that you have done up to this point. Common Questions and Concerns: Q: My pain relief was only temporary after the diagnostic block. Is that a failure? A: No. The diagnostic blocks are not intended to produce long-acting pain relief. They are designed to find out if temporary reduction of nerve function results in temporary relief of pain. If this is the case, it may be appropriate to pursue a longer-acting solution. Q: Isn't it bad to destroy nerves? Don't I need them? A: Generally, yes. In this case, however, there is not a great risk to the destructive proc edure. This is a minor nerve that only serves the joint and a small muscle that may also be responsible for your pain. Unless an entire series of these nerves are damaged, you won't no marek the loss. Often, injury to a large nerve, or one that supplies skin, results in increas ed pain. This is not generally the case after these procedures, because of the way in which the radio frequency lesion is generated. Q: Will the nerve grow back? A: Yes. In 8-12 months, the nerve will generally grow back. Since the radio frequency lesio n does not physically disrupt the nerve like a scalpel would, the regenerating nerve will no t create a neuroma (another painful condition). When the nerve grows back, some of the disco mfort may return, but not necessarily. A lot of this depends on your ability to improve your muscular function with physical thera py after the procedure. If you can maximize the benefit of physical therapy, you will reduce the chances of having increasing pain when the nerve grows back. Otherwise, this procedure can be repeated. Q: Will there be pain after the procedure? A: After the diagnostic blocks, it is common to have some back or neck soreness (depending on the location of your injection) that lasts a couple of days. You can use warm and/or cool compresses to treat this, as well as your normal medication. If your doctor approves, you m ay use medications like ibuprofen (Advil) or acetaminophen (Tylenol). Q: Is this the procedure the same as facet joint steroid injections? A: No. Those procedures have less sensitivity for diagnosing this problem, as well as les s specificity in defining the causes of pain. They do not last more than about 2 weeks in m ost cases, and are not used frequently to treat pain of longstanding duration. [facility] Agqibmpkqudjcv signed by Sapna Dutta MD at 02/19/2012 11:42 AM PDT documented in this encounter Progress Notes Sapna Dutta MD - 02/19/2012 10:50 AM PDT [facility] Office Visit Date: 02/19/2012 Mr. Mckeon was referred for Spine Center evaluation by Yesi Guerrero MD [facility] [address] [place] [address]. Reason for consult: Chief Complaint: Chief Complaint Patient presents with New patient consultation Neck pain Arm Pain History of Present Illness: Ron Mckeon is a 56 year old male with a >10 year histo ry of intermittent and sharp pain located in the left side of the neck, towards the occiput, radiating into the rest of the neck, through the dorsal arm and forearm, stopping in the mi d-forearm. Mr. Mckeon is unable to describe any exacerbating factors. His pain is impro marla by medications and relaxation. The patient reports no other associated injuries. Treatment for this pain complaint has included gabapentin 600 mg PO Q8H (not sure what the effect is); tramadol 100 mg PO Q8H (ditto). Mr. Mckeon is not able to answer detailed qu estions with clear answers (he admits), so it is hard for him to know if there are effects t o his medications. He last had physical therapy a couple of years ago, but does no current independent home ex ercise program. He had some sort of injection in his neck (not sure what kind, of there wer e x-rays involved or not), but this increased his pain. He says "never again" to injections . He had a surgical evaluation about 4 years ago, and was not offered surgery. 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 He lives with h is of 7 years, and they get along well. 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 He does not feel that he has had effective therapy for this problem. . He is here to "just get rid of the pain." Mr. Mckeon served in the [employer] from 1785-1295, including the first [place] [employer] war, d [employer] trucks. He was in combat. He does have nightmares and some flashbacks, and sometime s feels like he is back there. He is not startled by loud noises. When he returned from se rvice, he had some ineffective counseling. He denies suicidal ideation. Current Medication List Name Sig ASPIRIN 81 MG TAB Take 81 mg by mouth once daily. CHOLECALCIFEROL (VITAMIN D3) 1,000 UNIT TAB Take 1,000 Units by mouth once daily. GABAPENTIN 600 MG TAB Take 600 mg by mouth three times daily. HYDROCHLOROTHIAZIDE 25 MG TAB Take 25 mg by mouth once daily. METOPROLOL TARTRATE 50 MG TAB Take 50 mg by mouth two times daily. MULTIVITAMIN WITH TPP-BY-UFSVIYDB-GINKGO 400 MCG-300 MCG-120 MG TAB Take by mouth. OMEPRAZOLE 20 MG TAB, DELAYED RELEASE Take 20 mg by mouth once daily. SIMVASTATIN 40 MG TAB Take 40 mg by mouth once daily in the evening. TRAMADOL 50 MG TAB Take 100 mg by mouth every eight hours as needed. Past Medical History Diagnosis Date Hypertension Hypercholesterolemia Past Surgical History Procedure Date Nasal septum surgery Tonsil and adenoidectomy Family History Problem Relation Hypertension Lipids Arthritis Cancer History Alcohol Use No History Drug Use No History Sexual Activity Sexually Active: Not on file Radiology: Name: RON MCKEON Phys: YESI GUERRERO MD : 1955 Age: 56 Sex: M Acct: [id number] Loc: MRI Exam Date: 11/05/2011 Status: REG REF Radiology No: Unit No: [id number] EXAM# TYPE/EXAM RESULT CPT CODE [id number] MRI/CERVICAL SPINE W/O CONTRAST [id number] EXAM: MRI CERVICAL SPINE, Nov 05, 2011 01:04:00 PM. CLINICAL HISTORY: Chronic neck and left arm pain. COMPARISON: Cervical spine MRI from [facility] on 02/14/2010. TECHNIQUE: T1 and T2 sagittal and axial, coronal STIR. FINDINGS: The lordosis is mildly straightened. The C2-C3 level is within normal limits. At C3-C4, there is a broad-based disc bulge which causes effacement of the anterior cord. This is not significantly changed from the prior study. This disc bulge also causes significant narrowing of the left neural foramen. The right foramen appears patent. At C4-C5, there is a broad-based disc bulge causing mild effacement of the cord, but no deformity. The neural foramina appear patent. At C5-C6, there is significant loss of disc height. A broad-based disc bulge combines with uncovertebral hypertrophy and endplate osteophytes to cause significant bilateral neural foraminal narrowing, left greater than right. At C6-C7, there is a broad-based disc bulge, which combines with uncovertebral and endplate osteophytes, to cause bilateral neural foraminal narrowing, right much worst than left. There does not appear to be central canal stenosis at this level. At C7-T1, there is a slight right lateral disc bulge slightly narrowing the neural foramen. The central canal is widely patent. The levels below show no significant pathology. Overall, there does not seem to be much change compared to the prior MRI from February 2010. No abnormal signal is seen in the cord. IMPRESSION: DIFFUSE DEGENERATIVE DISC DISEASE AND SPONDYLOSIS CAUSING VARYING DEGREES OF NEURAL FORAMINAL AND CENTRAL CANAL STENOSIS Review of Systems Constitutional: Positive for malaise/fatigue. HENT: Positive for headaches (daily headache; may be worse in the morning) and neck pain. Eyes: Negative. Respiratory: Positive for cough and shortness of breath. Some contemplation of smoking cessation. Cardiovascular: Negative for chest pain and palpitations. Gastrointestinal: Positive for heartburn. Genitourinary: Positive for frequency. Urinary hesitancy. Musculoskeletal: Positive for myalgias. Skin: Negative. Neurological: Positive for weakness. Negative for tingling, sensory change and focal weakne ss. Endo/Heme/Allergies: Does not bruise/bleed easily. Psychiatric/Behavioral: Irritable when in pain. Sometimes acosta, but pays no attention to his own mood. Physical Exam Constitutional: He is well-developed, well-nourished, and in no distress. HENT: Head: Normocephalic and atraumatic. Eyes: Right eye exhibits no discharge. Left eye exhibits no discharge. No scleral icterus. Neck: No tracheal deviation present. Cardiovascular: Regular rhythm. Exam reveals no gallop and no friction rub. No murmur heard. Pulmonary/Chest: Effort normal. No respiratory distress. He has decreased breath sounds in the right upper field and the left upper field. He has no wheezes. He has no rales. Abdominal: Soft. Bowel sounds are normal. He exhibits no distension. There is no tenderness . There is no rebound. Musculoskeletal: GAIT & STATION: Symmetrical, broad-based, walks on lateral side of feet; toe gait le ft antalgic (left leg tightness) and heel gait normal SPINE: physiologic curvature Cervical spine Curvature: flexion bias Cervical active range of motion in degrees: Flexion: 30; pulling on left side of neck Extension: 20; left suboccipital-middle neck pain (worst) Right rotation + extension: left neck stretching Left rotation + extension: left suboccipital-middle neck pain Spurling's: Left: Negative Right: Negative Thoracic Spine Curvature: physiologic kyphosis Lumbar curvature: decreased lordosis Myofascial tenderness: no splenius capitis, trapezius, deltoid, supraspinatus, infraspinatu s, rhomboid Manual tender point survey: not indicated Shoulder: Active range of motion: limited bilaterally in abduction Neer sign: Right positive and Left positive Hawkin's sign: Left positive Scarf sign: Left positive Empty can test: left Positive Subscapularis lift-off: left Positive Neurological: He is alert. Reflex Scores: Tricep reflexes are 1+ on the right side and 1+ on the left side. Bicep reflexes are 1+ on the right side and 1+ on the left side. Brachioradialis reflexes are 1+ on the right side and 1+ on the left side. Patellar reflexes are 1+ on the right side and 1+ on the left side. Neurological: Sensory examination: intact light touch bilaterally in upper extremities Motor power: Motor strength:Abduction & Adduction is bilaterally 5+ in: shoulder, Flexion & Extension is bilaterally 5+ in: shoulder, elbow and wrist, Internal & External Rotation is bilaterally 5 + in: shoulder, Inversion & Eversion is bilaterally 5+ in: wrist and intrinsic hand muscles Skin: Skin is warm and dry. No rash noted. No erythema. No pallor. Psychiatric: Affect normal. Ortho Exam Neurologic Exam Gait, Coordination, and Reflexes Reflexes Right brachioradialis: 1+ Left brachioradialis: 1+ Right biceps: 1+ Left biceps: 1+ Right triceps: 1+ Left triceps: 1+ Right patellar: 1+ Left patellar: 1+ VITALS: BP 134/87 | Pulse 84 | RR 16 | Ht 175.3 cm (5' 9") | Wt 98.884 kg (218 lb) | SpO2 97% | BMI 32.19 kg/(m^2) Impression For today's evaluation, I have included my personal review of Mr. Mckeon's history and p hysical examination. I also used the following components in my medical decision making: Radiology Reports reviewed. Personal review of radiological images. Patient Active Problem List Diagnoses Neck pain Facet arthropathy, cervical Cervical spondylosis without myelopathy Impingement syndrome of left shoulder Physical deconditioning Post traumatic stress disorder Smoking Cervicogenic headache 723.1B Neck pain 721.0Y Facet arthropathy, cervical 721.0 Cervical spondylosis without myelopathy 726.2AX Impingement syndrome of left shoulder 728.2AY Physical deconditioning 309.81X Post traumatic stress disorder 305.1AD Smoking 784.0ES Cervicogenic headache Mr. Mckeon's pain appears to be due to two separate, related problems. He has cervical degenerative changes, which primarily manifest themselves in upper cervical facet arthropath y symptoms. This likely also contributes to cervicogenic headache. However, it was difficu lt to get medical details from Mr. Mckeon, who refers to his as "the medical one," a nd does not take ownership of the details of his own medical experience. He also has some r isk of obstructive sleep apnea, which could contribute to frequent headaches. In addition, Mr. Mckeon has bilateral, left > right shoulder impingement syndrome. He i s very muscular, but exceedingly stiff, and is sedentary. He has no independent home exerci se program. For the shoulder symptoms, the treatment most likely to lead to improved pain a nd function is activating physical therapy. He should develop an independent home exercise program that improves on flexibility, active range of motion, and posterior shoulder girdle strength. His posture should also be improved, with less of a flexion bias. If he can do t hese things, he will likely have improved upper extremity function and pain; if not, he may require surgical evaluation for rotator cuff syndrome. His neck pain could benefit from physical therapy, as well, but is more likely to change if medial branch block/radiofrequency medial branch denervation is included. He had a bad exp erience with what sounds like a cervical epidural steroid injection, and is hesitant to cons ider additional pain procedures. I recognize this, and did not push the issue. However, he does not appear to be a surgical candidate, and this treatment has a high probability of bailon ccess in treating pain due to cervical facet arthropathy. He may consider this in the futur e. Mr. Mckeon has diminished breath sounds in the apices of his lungs, consistent with emph ysema. He has dyspnea on exertion, as well. I advised him to discontinue smoking, to reduc e the ongoing damage to his lungs. He is contemplating doing something about this, but has not made a plan. I also asked Mr. Mckeon about post-traumatic stress disorder symptoms. He continues to have reenactment nightmares, and desires social isolation. I advised him that treatment for post-traumatic stress disorder had come a long way since he was discharged from the [employer], a nd that it might be reasonable for him to seek treatment again. He will consider this. Mr. Mckeon cannot come to [facility] for treatment on any kind of regular basis, so I am not w riting orders for him. I suggested that he follow up with Yesi Guerrero MD, and review my recommendation for local physical therapy with him. I suggest that Dr. Guerrero consider writing detailed physical therapy orders, as outlined below. I spent 60 minutes in total with Mr. Mckeon today, >50% of which was spent in counselin g on the topics mentioned in the Impression and Plans sections. Recommendations: 1. I recommend that Mr. Mckeon have physical therapy locally, focusing on improving bila teral shoulder active range of motion, scaption and posterior shoulder muscular development, improving cervical range of motion, and developing an independent home exercise program. T here should be minimal use of passive modalities. 2. We could consider left C2, 3, 4 medial branch block/radiofrequency medial branch denerva tion, if Mr. Mckeon wished. 3. Continue current medications. 4. I recommend that Mr. Mckeon look into counseling locally (possibly through [facility]) for po st-traumatic stress disorder. 5. I encouraged smoking cessation. 6. Follow up if: a) shoulder work is not going well, for surgical evaluation. b) Mr. Mckeon wishes to try the medial branch block/radiofrequency medial branch denerva tion option SAPNA DUTTA MD [facility] documented in this encounter Plan of Treatment Not on filedocumented as of this encounter Procedures + +--------+ + + + | Procedure Name | Priori | Date/Time | Associated Diagnosis | Comments | | | ty | | | | + +--------+ + + + | RADIOLOGY | | 02/19/2012 | | Results for this | | | | 12:00 AM | | procedure are in the | | | | PDT | | results section. | + +--------+ + + + | MRI SPINE CERVICAL | Routin | 11/05/2011 | | Results for this | | WO CONTRAST | e | | | procedure are in the | | | | | | results section. | + +--------+ + + + documented in this encounter Results RADIOLOGY (02/19/2012 12:00 AM PDT) + + + | Narrative | Performed At | + + + | | | + + + + + | Transcriptions | + + | Grisel Cummings - 05/04/2012 12:46 PM PDT | + + MRI SPINE CERVICAL WO CONTRAST (11/05/2011) + + + | Impressions | Performed At | + + + | Name: RON MCKEON Phys: YESI GUERRERO MD : | | | 1955 Age: 56 Sex: M Acct: [id number] Loc: MRI Exam Date: | | | 11/05/2011 Status: REG REF Radiology No: Unit No: [id number] | | | EXAM# TYPE/EXAM RESULT CPT CODE [id number] MRI/CERVICAL SPINE W/O | | | CONTRAST [id number] EXAM: MRI CERVICAL SPINE, Nov 05, 2011 01:04:00 | | | PM. CLINICAL HISTORY: Chronic neck and left arm pain. | | | COMPARISON: Cervical spine MRI from [facility] on | | | 02/14/2010. TECHNIQUE: T1 and T2 sagittal and axial, coronal STIR. | | | FINDINGS: The lordosis is mildly straightened. The C2-C3 level is | | | within normal limits. At C3-C4, there is a broad-based disc bulge | | | which causes effacement of the anterior cord. This is not | | | significantly changed from the prior study. This disc bulge also | | | causes significant narrowing of the left neural foramen. The right | | | foramen appears patent. At C4-C5, there is a broad-based disc | | | bulge causing mild effacement of the cord, but no deformity. The | | | neural foramina appear patent. At C5-C6, there is significant loss | | | of disc height. A broad-based disc bulge combines with | | | uncovertebral hypertrophy and endplate osteophytes to cause | | | significant bilateral neural foraminal narrowing, left greater than | | | right. At C6-C7, there is a broad-based disc bulge, which combines | | | with uncovertebral and endplate osteophytes, to cause bilateral | | | neural foraminal narrowing, right much worst than left. There does | | | not appear to be central canal stenosis at this level. At C7-T1, | | | there is a slight right lateral disc bulge slightly narrowing the | | | neural foramen. The central canal is widely patent. The levels below | | | show no significant pathology. Overall, there does not seem to be | | | much change compared to the prior MRI from February 2010. No abnormal | | | signal is seen in the cord. IMPRESSION: DIFFUSE DEGENERATIVE | | | DISC DISEASE AND SPONDYLOSIS CAUSING VARYING DEGREES OF NEURAL | | | FORAMINAL AND CENTRAL CANAL STENOSIS | | + + + documented in this encounter Visit Diagnoses + + | Diagnosis | + + | Neck pain Cervicalgia | + + | Facet arthropathy, cervical Cervical spondylosis without myelopathy | + + | Cervical spondylosis without myelopathy | + + | Impingement syndrome of left shoulder Other affections of shoulder region, not | | elsewhere classified | + + | Physical deconditioning Muscular wasting and disuse atrophy, not elsewhere classified | + + | Post traumatic stress disorder Posttraumatic stress disorder | + + | Smoking Tobacco use disorder | + + | Cervicogenic headache Headache | + + documented in this encounter
--- OUTSIDE RECORDS SUMMARY | ~2019-02-13 | XMS | Encounter Summary ---
Demographics + + + | Address | [address] | | | [place] [address] | + + + | Home Phone | | + + + | Preferred Language | Unknown | + + + | Marital Status | | + + + | Tenriism Affiliation | NRP | + + + | Race | White | + + + | Ethnic Group | Not or | + + + Author + + + | Author | [facility] | + + + | Organization | [facility] | + + + | Address | Unknown | + + + | Phone | Unavailable | + + + Support + + + + + | Name | Relationship | Address | Phone | + + + + + | [place] Will | ECON | [address] | | | | | [place] [address] | | + + + + + Care Team Providers + +------+ + | Care Fleet Dispatch Manager Name | Role | Phone | [...] | | | | | | [place] [address] | | | +--------+--------+ + + + [...]
--- OUTSIDE RECORDS SUMMARY | ~2019-02-13 | XMS | Clinical Summary ---
Demographics + + + | Address | [address] [place] [address] [address] | | | [place] [address] | + + + | Home Phone | | + + + | Preferred Language | Unknown | + + + | Marital Status | | + + + | Orthodox Affiliation | Unknown | + + + | Race | Unknown | + + + | Ethnic Group | Unknown | + + + Author + + + | Author | [facility] | + + + | Organization | [facility] | + + + | Address | Unknown | + + + | Phone | Unavailable | + + + Support + + +---------+ + | Name | Relationship | Address | Phone | + + +---------+ + | [place] Mckeon | ECON | Unknown | | + + +---------+ + Care Team Providers + +------+ + | Care Parquet Floor Layer'S Helper Name | Role | Phone | [...] disease (HCC) | | + + + Family History + + +------+ [...] + + | Father | | | [place] | | | | (Age | | [...] + Plan of Treatment Not on file Results Not on filefrom Last 3 Months Insurance + +--------+ +------+-------+ + | Payer | Benefi | Subscriber | Type | Phone | Address | | | t Plan | ID | | | | | | / | | | | | | | Group | | | | | + +--------+ +------+-------+ + | MEDICAID | [place] | [id number] | | | [address] | | | N | | | | [place], [place] | | | [place] | | | | [address] | | | [employer] | | | | | + +--------+ [...] | Self [birth year] | Home: | [address] | | | al/Fam | | [phone] [address] [place], | | | [place] | | | [phone] | [place] [address] | + +--------+ +--------+ + +
--- OUTSIDE RECORDS SUMMARY | ~2019-02-13 | XMS | Clinical Summary ---
Demographics + + + | Address | [address] | | | [place] [address] | + + + | Home Phone | | + + + | Preferred Language | Unknown | + + + | Marital Status | | + + + | Alevism Affiliation | Unknown | + + + | Race | Unknown | + + + | Ethnic Group | Unknown | + + + Author + + + | Author | [facility] | | | and [place] | + + + | Organization | [facility] | | | and [place] | + + + | Address | Unknown | + + + | Phone | Unavailable | + + + Support + + + + + | Name | Relationship | Address | Phone | + + + + + | [place] Will | ECON | [place] | | | | | [address] | | + + + + + Care Team Providers + +------+ + | Care City Dispatch Supervisor Name | Role | Phone | + +------+ + | Venus Lainez MD | PP | | + +------+ + Allergies No Known Allergies Medications + + + +---------+------+------+-------+ | Medication | Sig | Dispensed | Refills | Star | End | Statu | | | | | | t | Date | s | | | | | | Date | | | + + + +---------+------+------+-------+ | aspirin 81 MG | Take 81 mg by mouth | | 0 | | | Activ | | tablet | Daily. | | | | | e | + + + +---------+------+------+-------+ | gabapentin | Take 300 mg by mouth | | 0 | | | Activ | | (NEURONTIN) 300 mg | 3 times daily. | | | | | e | | capsule | | | | | | | + + + +---------+------+------+-------+ | Cholecalciferol | Take by mouth Once | | 0 | | | Activ | | (VITAMIN D-3) 50688 | a week. | | | | | e | | units CAPS | | | | | | | + + + +---------+------+------+-------+ | traMADol (ULTRAM) | Take 50 mg by mouth | | 0 | | | Activ | | 50 mg tablet | every 6 hours as | | | | | e | | | needed. | | | | | | + + + +---------+------+------+-------+ | metFORMIN | Take 500 mg by mouth | | 0 | | | Activ | | (GLUCOPHAGE) 500 mg | 2 times daily (with | | | | | e | | tablet | breakfast & | | | | | | | | dinner). | | | | | | + + + +---------+------+------+-------+ | nitroglycerin | Place 1 tablet under | 25 | 3 | 09/ | | Activ | | (NITROSTAT) 0.4 mg | the tongue every 5 | tablet | | 4/20 | | e | | SL tablet | minutes as needed | | | 18 | | | | | for Chest pain. | | | | | | + + + +---------+------+------+-------+ | raNITIdine | Take 1 tablet by | | 0 | 08/2 | | Activ | | (ZANTAC) 300 MG | mouth nightly. | | | 2/20 | | e | | tablet | | | | 18 | | | + + + +---------+------+------+-------+ | melatonin 3 mg | Take 5 mg by mouth | | 0 | | | Activ | | TABS | nightly. | | | | | e | + + + +---------+------+------+-------+ | acetaminophen | Take 1,000 mg by | | 0 | | | Activ | | (TYLENOL) 500 mg | mouth as needed. | | | | | e | | tablet | | | | | | | + + + +---------+------+------+-------+ | furosemide (LASIX) | TAKE ONE TABLET BY | 30 | 4 | 10/1 | | Activ | | 20 mg tablet | MOUTH DAILY | tablet | | 2/20 | | e | | | | | | 18 | | | + + + +---------+------+------+-------+ | | Take 1 tablet by | | 0 | | | Activ | | HYDROcodone-acetamin | mouth as needed. | | | | | e | | ophen (NORCO) 10-325 | | | | | | | | mg per tablet | | | | | | | + + + +---------+------+------+-------+ | ipratropium | ipratropium bromide | | 0 | | | Activ | | (ATROVENT) 0.06% | 42 mcg (0.06 %) | | | | | e | | nasal spray | nasal spray Wall 2 | | | | | | | | sprays 3 times a day | | | | | | | | by intranasal | | | | | | | | route. | | | | | | + + + +---------+------+------+-------+ | clopidogrel | Take 1 tablet by | 30 | 11 | 11/3 | 11/3 | Activ | | (PLAVIX) 75 mg | mouth Daily. | tablet | | 0/20 | 0/20 | e | | tablet | | | | 18 | 19 | | + + + +---------+------+------+-------+ | pantoprazole | Take 1 tablet by | 30 | 5 | 11/3 | | Activ | | (PROTONIX) 40 mg | mouth every morning | tablet | | 0/20 | | e | | tablet | (before breakfast). | | | 18 | | | + + + +---------+------+------+-------+ | ergocalciferol | | | 0 | 01/0 | | Activ | | (VITAMIN D-2) 50,000 | | | | 4/20 | | e | | units capsule | | | | 19 | | | + + + +---------+------+------+-------+ | beclomethasone | QNASL 80 | | 0 | | | Activ | | (QNASL) 80 mcg/nasal | mcg/actuation nasal | | | | | e | | spray | aerosol spray Wall | | | | | | | | 2 sprays every day | | | | | | | | by intranasal route | | | | | | | | at bedtime. | | | | | | + + + +---------+------+------+-------+ | predniSONE | | | 0 | 12/1 | | Activ | | (DELTASONE) 20 mg | | | | 2/20 | | e | | tablet | | | | 18 | | | + + + +---------+------+------+-------+ | | Take 1 tablet by | 60 | 5 | 02/2 | | Activ | | sacubitril-valsartan | mouth 2 times daily. | tablet | | 0/20 | | e | | (ENTRESTO) 49-51 mg | | | | 19 | | | | per tablet | | | | | | | + + + +---------+------+------+-------+ | metoprolol | Take 1 tablet by | | 0 | 03/2 | | Activ | | succinate | mouth 2 times daily. | | | 1/20 | | e | | (TOPROL-XL) 50 mg 24 | | | | 19 | | | | hr tablet | | | | | | | + + + +---------+------+------+-------+ | torsemide | Take 2 tablets by | 90 | 3 | 03/2 | | Activ | | (DEMADEX) 10 mg | mouth in am, and 1 | tablet | | 8/20 | | e | | tablet | tablet by mouth in | | | 19 | | | | | the afternoon | | | | | | + + + +---------+------+------+-------+ | spironolactone | Take 1 tablet by | 30 | 3 | 03/2 | | Activ | | (ALDACTONE) 25 mg | mouth Daily. | tablet | | 8/20 | | e | | tablet | | | | 19 | | | + + + +---------+------+------+-------+ | atorvaSTATin | TAKE ONE TABLET BY | 90 | 3 | 04/0 | | Activ | | (LIPITOR) 80 MG | MOUTH EVERY DAY IN | tablet | | 1/20 | | e | | tablet | THE EVENING | | | 19 | | | + + + +---------+------+------+-------+ | amiodarone | TAKE TWO TABLETS BY | 180 | 3 | 05/2 | | Activ | | (PACERONE) 200 mg | MOUTH EVERY DAY | tablet | | 8/20 | | e | | tablet | | | | 19 | | | + + + +---------+------+------+-------+ | amiodarone | Take 2 tablets by | 60 | 5 | 10/2 | 05/2 | Disco | | (PACERONE) 200 mg | mouth Daily. | tablet | | 3/20 | 8/20 | ntinu | | tablet | | | | 18 | 19 | ed | + + + +---------+------+------+-------+ Active Problems +---------+ + | Problem | [...] + | COPD (chronic obstructive pulmonary disease) | 05/14/2018 | + + + + [...] | 11/12/2017 | + + + | TORCH SOLDERER-D (AICD) Medtronic 10/16/17 [facility] | 10/19/2017 | + + + + + | Overview: Formatting of this note might be different from the | | original. MODEL NAME MODEL# SERIAL# DATE IMPLANTED GENERATOR | | Medtronic [id number] 10/16/17 RV LEAD Medtronic [id number] 62 | | [id number] 10/16/17 A LEAD Medtronic [id number] 10/16/17 | | Coronary Sinus LEAD Medtronic [id number] 10/16/17 | | Indication: ischemic cardiomyopathy with reduced EF 30-35% Last | | Assessment & Plan: Medtronic AICD Placed in 10/2017 at [facility]. | | A:-Patient ventricular paced 100% this morning. No arrhythmias on | | telemetry.P:-No acute therapy. Continue current therapy. | | | | Last Assessment & Plan: Medtronic AICD Placed in 10/2017 at [facility]. | | | |A: | |-Patient ventricular paced 100% this morning. No arrhythmias on telemetry. | | | |P: | |-No acute therapy. Continue current therapy. | + + + + + | Implantable defibrillator reprogramming/check | 10/19/2017 | + + + | H/O atrial flutter | 10/19/2017 | + + + | Acute on chronic systolic congestive heart failure | 10/17/2017 | + + + + [...] + + + | Overview: S/P Medtronic TORCH SOLDERER-D 10-16-17 Dr Darby, [facility] Scan | | 10/13/17 shows No [...] + + | Coronary artery disease involving elim ira coronary artery of | 04/06/2017 | | elim ira heart without angina pectoris | | + [...] + + + | Acute anterior wall OR | 04/03/2017 | + + + + [...] q6 for about 7 | | days) - for breakthrough, has not required in some time -lido | | patches added 03/24 | | -lido patches added 03/24 | + + + + + | Abdominal aortic aneurysm (AAA) without rupture | 03/18/2017 | + + + + [...] + + | PAD (peripheral artery disease) | | + + + + + [...] + + + | Paroxysmal atrial flutter | 10/12/19 | | | | 18 | 8 | + + + + | Pulmonary edema | 10/03/19 | | | | 18 | 8 | + + + + Encounters +--------+ + + + + | Date | Type | Specialty | Care Team | Description | +--------+ + + + + | 02/01/ | Refill | | Jenny, | Medication Refill | | 2018 | | | ADARSH Santo | | +--------+ + + + + | 01/26/ | Orders Only | | Litzy, | Chronic kidney | | 2018 | | | ADARSH Wesley | disease, stage IV | | | | | | (severe) (HCC) | | | | | | (Primary Dx); Anemia | | | | | | in chronic kidney | | | | | | disease, unspecified | | | | | | CKD stage | +--------+ + + + + | 01/24/ | Abstract | | Litzy, | | | 2018 | | | ADARSH Wesley | | +--------+ + + + + | 12/30/ | Abstract | | Tamia Burleson, | | | 2018 | | | MD | | +--------+ + + + + | 12/09/ | Office | | Randy Figueroa, | Coronary artery | | 2018 | Visit | | MD | disease involving | | | | | | elim ira coronary | | | | | | artery of elim ira | | | | | | heart without angina | | | | | | pectoris (Primary | | | | | | Dx); Post PTCA | +--------+ + + + + | 12/07/ | Office | | Randy Figueroa, | Coronary artery | | 2018 | Visit | | MD | disease involving | | | | | | elim ira coronary | | | | | | artery of elim ira | | | | | | heart [...] | | | | | (Primary Dx); TORCH SOLDERER-D | | | | | | (AICD) Medtronic | | | | | | 10/16/17 [facility]; | | | | | | Ischemic | | | | | | cardiomyopathy | +--------+ + + + + | 12/02/ | Office | | Randy Figueroa, | Coronary artery | | 2018 | Visit | | MD | disease involving | | | | | | elim ira coronary | | | | | | artery of elim ira | | | | | | heart without angina | | | | | | pectoris (Primary | | | | | | Dx); Post PTCA | +--------+ + + + + | 12/02/ | Abstract | | Jenny, | | | 2019 | | | ADARSH Santo | | +--------+ + + + + | 11/30/ | Office | | Randy Figueroa, | Coronary artery | | 2018 | Visit | | MD | disease involving | | | | | | elim ira coronary | | | | | | artery of elim ira | | | | | | heart without angina | | | | | | pectoris (Primary | | | | | | Dx); Post PTCA | +--------+ + + + + | 11/29/ | Telephone | | Jenny, | Medication Related | | 2018 | | | ADARSH Santo | | +--------+ + + + + | 11/25/ | Office | | Randy Figueroa, | Coronary artery | | 2018 | Visit | | MD | disease involving | | | | | | elim ira coronary | | | | | | artery of elim ira | | | | | | heart [...] involving | | | | | | elim ira coronary | | | | | | artery of elim ira | | | | | | heart [...] recent travel history available. | + + Last Filed Vital Signs + [...] 0954 PST | + + + + Plan of Treatment +--------+ + + + + | Date | Type | Specialty | Care Team | Description | +--------+ + + + + | 03/08/ | Office | | Litzy, | | | 2018 | Visit | | ADARSH Wesley [address] | | | | | | [address] [facility] | | | | | | [address] | | | | | | [address] | | | | | | | | +--------+ + + + + | 03/24/ | Procedure | | | | 2018 | visit | | | | +--------+ + + + + | 03/24/ | Office | | Jenny, | | | 2018 | Visit | | ADARSH Santo [address] | | | | | | [address] [place], | | | | | | [place] [address] | | | | | | [phone] | | | | | | | [...] | Area | Manufacture | Device | Shelf | Model | | | | | r | | Expira | / | | | | | | Identi | tion | Serial | | | | | | fier | Date | / Lot | + +--------+--------+ +--------+--------+--------+ | Angioseal Vip 6f - | Generi | Left: | TERUMO LORIN | [id number] | 12/05/ | [id number] | | [id number]: Qty: 1 | c | Groin | - TERU | [id number] | 2019 | / | | on 05/19/2018 by Thew, | | | | 20 | | /[id number] | | Khurram Isabel MD | | | | | | 371 | + +--------+--------+ +--------+--------+--------+ | Switch House Operator-D MedtronicImplanted: | Implan | | MEDTRONIC - [...] N/A: | ISAACS | | 12/29/ | [id number] | | Eluting Coronary Stent System | | [place] | DIAGNOSTICS | | 2019 | 0-18 / | | Implanted: Qty: 1 on | | ry | - DAINA | | | | | 03/15/2017 by Monse Ross, | | | | | | /[id number] | | MD | | | | | | 60 | + +--------+--------+ +--------+--------+--------+ | Xience Alpine Everolimus | Stent | N/A: | ISAACS | | 11/03/ | [id number] | | Eluting Coronary Stent System | | [place] | DIAGNOSTICS | | 2019 | 0-23 / | | Implanted: Qty: 1 on | | ry | - DAINA | | | | | 03/15/2017 by Monse Ross, | | | | | | /[id number] | | MD | | | | | | 41 | + +--------+--------+ +--------+--------+--------+ | Kit Perclose Proglide 6fr - | | Right: | SHITAL | [id number] | | 81583- | | [id number]: Qty: 1 | | Groin | VASCULAR - | [id number] | | 03 / / | | on 05/19/2018 by Missael, | | | ABVA | 89 | | | | Khurram Isabel MD | | | | | | | + +--------+--------+ +--------+--------+--------+ | Kit Perclose Proglide 6fr - | | Right: | ISAACS | [id number] | | [id number]- | | [id number]: Qty: 1 | | Groin | VASCULAR - | [id number] | | 03 / / | | [...] +--------+ + + + | EXTERNAL LAB: Kari TYPE | Routin | 01/13/2019 | | [...] | EXTERNAL LAB: BUN | Routin | 12/20/2018 | | Results [...] | EXTERNAL LAB: ALT | Routin | 12/20/2018 | | Results [...] this | | INTERROGATION- | e | 23:59 PDT | Interrogation TORCH SOLDERER-D | procedure are in the | | REMOTE | | | (AICD) Medtronic | results section. | | | | | 10/16/17 EULOGIO Darby | | | | | | Ischemic | | | | | | cardiomyopathy | | + +--------+ + + + | LABS - EXTERNAL SCAN | | 12/01/2018 | | Results for this | | | | 0:00 PDT | | procedure are in the [...] from Last 3 Months Results External Lab: BUN (01/13/2019)Only the most recent of 3 results within the time period is i ncluded. + +-------+ + + + | Component | Value | Ref Range | Performed | Pathologist | | | | | At | Signature | + +-------+ + + + | BUN, | 34 | | | | | External | | | | | + +-------+ + + + External Lab: Glucose (01/13/2019)Only the most recent of 3 results within the time period is included. + +-------+ + + + | Component | Value | Ref Range | Performed | Pathologist | | | | | At | Signature | + +-------+ + + + | Glucose, | 132 | | | | | External | | | | | + +-------+ + + + External Lab: Calcium (01/13/2019)Only the most recent of 3 results within the time period is included. + +-------+ + + + | Component | Value | Ref Range | Performed | Pathologist | | | | | At | Signature | + +-------+ + + + | Calcium, | 9.1 | | | | | External | | | | | + +-------+ + + + External Lab: Carbon Dioxide (01/13/2019)Only the most recent of 3 results within the time period is included. + +-------+ + + + | Component | Value | Ref Range | Performed | Pathologist | | | | | At | Signature | + +-------+ + + + | Carbon | 30 | | | | | Dioxide, | | | | | | External | | | | | + +-------+ + + + External Lab: Chloride (01/13/2019)Only the most recent of 3 results within the time period is included. + +-------+ + + + | Component | Value | Ref Range | Performed | Pathologist | | | | | At | Signature | + +-------+ + + + | Chloride, | 99 | | | | | External | | | | | + +-------+ + + + External Lab: Potassium (01/13/2019)Only the most recent of 3 results within the time perio d is included. + +-------+ + + + | Component | Value | Ref Range | Performed | Pathologist | | | | | At | Signature | + +-------+ + + + | Potassium, | 3.8 | | | | | External | | | | | + +-------+ + + + External Lab: Sodium (01/13/2019)Only the most recent of 3 results within the time period i s included. + +-------+ + + + | Component [...] Blood | + + External Lab: eGFR (01/13/2019)Only the most recent of 3 results within the time period is included. + +-------+ + + + | Component [...] Blood | + + External Lab: Creatinine (01/13/2019)Only the most recent of 3 results within the time maggy od is included. + +-------+ + + + | Component [...] | Blood | + + External Lab: ALT (12/20/2018) + [...] | | + +-------+ + + + Device Interrogation - Remote (12/05/2018 23:59 PDT) + + + | Narrative | Performed At | + + + | Randy | DONNA | | MD [place] 11/05/2018 10:33Date of Remote Interrogation: | | | 10/19/18 Refer to Paceart documentation and remote PDF scanned into | | | [facility] for remote interrogation results. Data [...] +---------+ + + LABS - EXTERNAL SCAN (12/01/2018 0:00 PDT) + + + | Narrative | Performed At | + + + | Ordered by an | | | unspecified provider. | | + + + Basic Metabolic Panel (12/01/2018) + [...] Last 3 Months Insurance + +--------+ +--------+ +---------+--------+ | Payer | Benefi | Subscriber | Effect | Phone | Address | Type | | | t Plan | ID | marilu | | | | | | / | | Dates | | | | | | Group | | | | | | + +--------+ +--------+ +---------+--------+ | [employer] | MODA | [id number] | | [phone] | | Medica | | MEDICAID HMO | HEALTH | | 018-Pr | 1 | | id | | | MDCD | | esent | | | | | | [place] | | | | | | + +--------+ +--------+ +---------+--------+ | [employer]MIN | VETERA | [id number] | 07/24/ | | | Indemn | | | NS | | 2016-P | | | ity | | | ADMIN | | resent | | | | | | [place] | | | | | | | | [place] | | | | | | + +--------+ +--------+ +---------+--------+ | [employer] ADMIN | VETERA | [id number] | 07/24/ | | | Indemn | | | NS | | 2016-P | | | ity | | | ADMIN | | resent | | | | | | [place] | | | | | | | | E | | | | | | + +--------+ +--------+ +---------+--------+ + +--------+ +--------+ + + | Guarantor Name | Accoun | Relation to | Date | Phone | Billing Address | | | t Type | Patient | of | | | | | | | | | | + +--------+ +--------+ + + | Bob Will | Person | Self [birth year] | [address] | | | al/Fam | | 1956 | [phone] | [place] | | | [place] | | | [address] (Home) | [address] | + +--------+ +--------+ + + Advance Directives Patient has advance care planning documents, and code status on file. For more information, please contact:[facility] and [place] [address] + + + + + | Code Status | Date | Date | Comments | | | Activated | Inactivated | | + + + + + | Full Code | 05/19/2018 | 05/21/2018 | | | | 14:42 | 13:25 | | + + + + + + + + +---+ | | | | | + + + +---+ | Full Code | 10/03/2017 | 10/10/2017 | | | | 9:56 | 17:58 | | + + + +---+
--- OUTSIDE RECORDS SUMMARY | ~2019-02-13 | XMS | Encounter Summary ---
Demographics + + + | Address | [address] | | | [place] [address] | + + + | Home Phone | | + + + | Preferred Language | Unknown | + + + | Marital Status | | + + + | Sikh Affiliation | NRP | + + + | Race | White | + + + | Ethnic Group | Not or | + + + Author + + + | Author | [facility] | + + + | Organization | [facility] | + + + | Address | Unknown | + + + | Phone | Unavailable | + + + Support + + + + + | Name | Relationship | Address | Phone | + + + + + | [place] Will | ECON | [address] | | | | | [place] [address] | | + + + + + Care Team Providers + +------+ + | Care Accordion Repairer Name | Role | Phone | [...] [place] | | | | | | [facility] | | | | | | [place], [place] | | | | | | [address] | | | +--------+ + + + [...]
--- OUTSIDE RECORDS SUMMARY | ~2019-02-13 | XMS | Encounter Summary ---
Demographics + + + | Address | [address] | | | [place] [address] | + + + | Home Phone | | + + + | Preferred Language | Unknown | + + + | Marital Status | | + + + | Pentecostal Affiliation | Unknown | + + + [...] | [place] | | | | | [address] | | + + + + + Care Team Providers + +------+ + | Care Soft Sugar Cutter Name | Role | Phone | [...] | | involving | [address] [place] | | | | | samish | [address] | [place] | | | | | coronary | [address] | [address] | | | | | artery of | Phone: | Phone: | | | | | samish heart | [phone] | [phone] | | | | | without | Fax: | Fax: | | | | | angina | [phone] | [phone] | | | | | pectoris | | | + + + + + + + Encounter Details +--------+---------+ + + + | Date | Type | Department | Care Team | Description | +--------+---------+ + + + | 12/07/ | Office | [facility] | Randy Figueroa, | Coronary artery | | 2019 | Visit | [facility] | MD [address] | disease involving | | | | REH[address]IL[address]ATION [address] [place], | samish coronary | | | | [address] [place] | [place] [address] | artery of samish | | | | [place] [address] | [phone] | heart without angina | | | | [phone] | | pectoris (Primary | | | [...] this encounter Progress Gael Ortega - 12/07/2018 1000 PDTFormatting of this note might be different from the orig [facility] CARDIAC REHABILITATION [address] [facility] [address] Cardiac Rehab Date: 12/07/2018 Patient Information Patient Name: Bob Will Date of : 1955 Age: 63 y.o. Encounter Diagnoses Code Name Primary? I25.10 Coronary artery disease involving samish coronary artery of samish heart without angina pectoris Yes Z98.61 Post [...] ly signed by Gael Woo at 12/07/2018 14:24 PDTdocumented in this encounter Plan of Treatment +--------+ + + + + | Date | Type | Specialty | Care Team | Description | +--------+ + + + + | 03/08/ | Office | Nephrology | [facility], | | | 2018 | Visit | | ADARSH Wesley [address] | | | | | | [address] , [facility] | | | | | [...] | | | | | | [place], | | | | | | [place] [address] | | | | | | [phone] | | | | | | | | +--------+ + + + + documented as of this encounter Visit Diagnoses + + | Diagnosis | + + | Coronary artery disease involving samish coronary artery of samish heart without | | angina pectoris - Primary | + + | Post PTCA Postsurgical percutaneous transluminal coronary angioplasty status | + + documented in this encounter"
--- OUTSIDE RECORDS SUMMARY | ~2019-02-13 | XMS | Encounter Summary ---
Demographics + + + | Address | [address] | | | [place] [address] | + + + | Home Phone [...] | [place] | | | | | [address] | | + + + + + Care Team Providers + +------+ + | Care Instrument Man Name | Role | Phone | + [...] | | | involving | [address] [place] | | | | | [address] | [address] | [place] | | | | | coronary | [address] | [address] | | | | | artery of | Phone: | Phone: | | | | | [place] heart | [phone] | [phone] | | | | | without | Fax: | Fax: | | | | | angina | [phone] | [phone] | | | | | pectoris | | | + + + + + + + Encounter Details +--------+---------+ + + + | Date | Type | Department | Care Team | Description | +--------+---------+ + + + | 11/23/ | Office | [facility] | Rahullindacathy Lindaangusleo, | Acute on chronic | | 2019 | Visit | [facility] | MD [address] | systolic congestive | | | | [facility] | [address], | heart failure (HCC) | | | | [address] [place] | [place] [address] | (Primary Dx) | | | | [place] [address] | [phone] | | | | | [phone] | | | +--------+---------+ + + + [...] of this encounter Progress Jonah Coker-Cheri Kendrick, SALES STRATEGY MANAGER - 11/23/2018 1000 PDTFormatting of this note might be diff erent from the original. [facility] CARDIAC REHABILITATION [address] [facility] [address] Cardiac Rehab Date: 11/23/2018 Patient Information Patient [...] | Office | Nephrology | [facility], | | | 2018 | Visit | | ADARSH Wesley [address] | | | | | | [address] , [facility] | | | | | | [address] [place] | | | | | | [id number] | | | | | | | | +--------+ + + + + | 03/24/ | Procedure | Cardiology | | | | 2018 | visit | | | | +--------+ + + + + | 03/24/ | Office | Cardiology | Jenny, | | | 2018 | Visit | | ADARSH Santo [address] | | | | | | [address] [place], | | | | | | [place] [address] | | | | | | [phone] | | | | | | | | +--------+ + + + + documented as of this encounter Visit Diagnoses + + | Diagnosis | + + | Acute on chronic systolic congestive heart failure (HCC) - Primary Acute on chronic | | systolic heart failure | + + documented in this encounter"
--- OUTSIDE RECORDS SUMMARY | ~2019-02-13 | XMS | Encounter Summary ---
Demographics + + + | Address | [address] | | | [place] [address] | + + + | Home Phone | | + + + | Preferred Language | Unknown | + + + | Marital Status | | + + + | Jehovah'S Witness Affiliation | NRP | + + + | Race | White | + + + | Ethnic Group | Not or | + + + Author + + + | Author | [facility] | + + + | Organization | [facility] | + + + | Address | Unknown | + + + | Phone | Unavailable | + + + Support + + + + + | Name | Relationship | Address | Phone | + + + + + | Venice Mckeon | ECON | [address] | | | | | [place] [address] | | + + + + + Care Team Providers + +------+ + | Care High School Librarian Name | Role | Phone | + [...] | 2018 | Encounter | Services at [facility] | | | | | | [address] [facility] | | | | | | [facility] | | | | | | Mailcode: [id number] | | | | | | [facility] | | | | | | [place], [place] | | | | | | [address] | | | | | | [phone] | | | +--------+ + + + [...] | + + + | Report ====== Dry Mill Worker: Rodríguez Fortune ([id number]), shubham | [facility] | | richy Batting Machine Operator Insulation: shubham lockhart Fellow: shubham lockhart | RADIOLOGY | | Petroleum Supply Specialist: shubham lockhart Viewer: shubham lockhart Report Date: | CARDIAC IMAGING | | Oct 2017, 09:22:25 PST Patient ------- Patient: RON MCKEON | | | Acc #: [id number] | | | Ethnicity: N Status: Final [...] | | | Image Quality: Good Scanner Hand Winder: Agorique Scanner | | | Model: BroadClip Scanner Serial Number: [id number] Scanner Software | | | Platform: 5.3.15.3.1.0 Staff: Rodríguez Fortune Modality: MR | | | Indication Name: routine Protocol Name: CMR W Flows WO Contrast | | | Findings -------- Non-cardiac findings were reviewed by Dr. Curtis. | | | This exam was terminated prematurely and is lmiited to instrument checker images. | | | There are bilateral [...] - 10/16/2017 9:22 AM PST | | Report======Dry Mill Worker: Rodríguez Fortune ([id number]), shubham Rodriguezalyst: shubham | | Zackeryow: shubham Beckician: shubham Bcekwithwer: shubham | | Judiort Date: 16 Oct 2017, 09:22:25 PSTPatient-------Patient: RON MCKEON | | JMedical Record Number: [id number] ID: [id number] #: [id number]: NStatus: | | Final ReportReport Number: [id number]: MaleBirthdate: 1955 (61 yrs)Study Date: 05 | | Oct 2017Study Description: CMR with Flows with ContrastReferring Physician: RAJIV | | HEITNERBlood Pressure: /Heart rate:Height (cm): 0Weight (kg): 89BMI (kg/m ): 0BSA | | (m ): 0 (Mosteller Formula)Image Quality: [employer] Hand Winder: Second street | | Xention Model: Weekend-a-gogo Serial Number: [id number] Software Platform: | | 5.3.15.3.1.0Staff: Rodríguez FortuneModality: MRIndication Name: routineProtocol Name: | | CMR W Flows WO ContrastFindings--------Non-cardiac findings were reviewed by | | Ever.This exam was terminated prematurely and is lmiited to instrument checker images.There are | | bilateral pleural effusions. [...] Formula) | |Image Quality: Good | |Scanner Hand Winder: Agorique | |Scanner Model: BroadClip | |Scanner Serial Number: [id number] | |Scanner Software Platform: 5.3.15.3.1.0 | |Staff: Rodríguez Fortune | |Modality: MR | |Indication Name: routine | |Protocol Name: CMR W Flows WO Contrast | |Findings | |-------- | |Non-cardiac findings were reviewed by Dr. Curtis. | |This exam was terminated prematurely and is lmiited to instrument checker images. | |There are bilateral pleural effusions. [...]
--- OUTSIDE RECORDS SUMMARY | ~2019-02-13 | XMS | Encounter Summary ---
Demographics + + + | Address | [address] | | | [place] [address] | + + + | Home Phone | | + + + | Preferred Language | Unknown | + + + | Marital Status | | + + + | Mu-Ism Affiliation | Unknown | + + + [...] [place] | | | | | [address] | | + + + + + Care Team Providers + +------+ + | Care Cube Machine Tender Name | Role | Phone | [...] Monitor | CARDIOLOGY [address] [place] | Interrogation | | | | [place], | [place], | (Primary Dx); SENIOR CONTROLLER-D | | | | [place] [address] | [place] [address] | (AICD) [employer] | | | | [phone] | [phone] | 10/16/17 [facility] [place]; | | | | [...] [place] | | | | | | [address] | | | | | | | [...] | | | | | | [place] [address] | | | | | | [phone] | | | | | | | [...] e | 23:59 PDT | Interrogation SENIOR CONTROLLER-D | procedure are in the | | REMOTE | | | ([facility]) [employer] | results section. | | [...] scanned into | | | [facility] for remote interrogation results. Data collected by [...] + + | Performing | Address | City/State/[place] | Phone Number | | Organization | | | | + +---------+ + + | [facility] | | | | + +---------+ + + documented in this encounter Visit Diagnoses + + | Diagnosis | + + | Remote Device Interrogation - Primary Fitting and adjustment of automatic implantable | | cardiac defibrillator | + + | SENIOR CONTROLLER-D (ZANED) [employer] 10/16/17 EULOGIO Darby | + + | Ischemic cardiomyopathy Other specified forms of chronic ischemic heart disease | + + documented in this encounter"
--- OUTSIDE RECORDS SUMMARY | ~2019-02-13 | XMS | Encounter Summary ---
Demographics + + + | Address | [address] | | | [place] [address] | + + + | Home Phone [...] [place] | | | | | [address] | | + + + + + Care Team Providers + +------+ + | Care Olericulturist Name | Role | Phone | + +------+ + | Venus Lainez MD | PCP | | + +------+ + Encounter Details +--------+ + + + + | Date | Type | Department | Care Team | Description | +--------+ + + + + | 05/20/ | Abstract | [facility] | [place], | | | 2019 | | NEPHROLOGY [address] | [address] | | | | | [address] | [address], [place] | | | | | [place], [place] | [address] [place], [place] | | | | | [address] | [address] | | | | | [phone] | | | +--------+ + + + [...] | | | | | [address] [facility] | | | | | | [address] [place] | | | | | | [address] | | | | | | | | +--------+ + + + + | 03/24/ | Procedure | Cardiology | | | | 2018 | visit | | | | +--------+ + + + + | 03/24/ | Office | Cardiology | Jenny, | | | 2018 | Visit | | [address] | | | | | | [place], | | | | | | [place] [address] | | | | | | [phone] | | | | | | | [...] in this encounter Results External Lab: [facility] (01/13/2019) + +-------+ + + + | Component | Value | Ref Range | Performed | Pathologist | | | | | At | Signature | + +-------+ + + + | [facility], | 34 | | | | | [...]
--- OUTSIDE RECORDS SUMMARY | ~2019-02-13 | XMS | Encounter Summary ---
Demographics + + + | Address | [address] | | | [place] [address] | + + + | Home Phone [...] + + + | Author | [facility] | + + + | Organization | [facility] | + + + | Address | Unknown | + + + | Phone | Unavailable | + + + Support + + + + + | Name | Relationship | Address | Phone | + + + + + | Venice Will | ECON | [address] | | | | | [place] [address] | | + + + + + Care Team Providers + +------+ + | Care Weatherization Specialist Name | Role | Phone | + +------+ + | Jamal Guerrero MD | PCP | | + +------+ + Encounter Details +--------+ + + + + | Date | Type | Department | Care Team | Description | +--------+ + + + + | 07/14/ | Telephone | Orthopaedic Spine | Patrick Dutta MD | | | 2011 | | Center at [facility] [address] | [address] | | | | | [address] | [place], [place] | | | | | Mailcode: CH8N | [address] | | | | | [facility] | [phone] | | | | | and Healing, [address]th | | | | | | Floor [place], [place] | | | | | | [address] | | | | | | [phone] | | | +--------+ + + + [...]
--- OUTSIDE RECORDS SUMMARY | ~2019-02-13 | XMS | Encounter Summary ---
Demographics + + + | Address | [address] | | | [place] [address] | + + + | Home Phone | | + + + | Preferred Language | Unknown | + + + | Marital Status | | + + + | Jain Affiliation | Unknown | + + + | Race | Unknown | + + + | Ethnic Group | Unknown | + + + Author + + + | Author | [facility] | | | and [place] | + + + | Organization | [facility] | [...] [place] | | | | | [address] | | + + + + + Care Team Providers + +------+ + | Care Underground Repairer Name | Role | Phone | [...] | | | | | | [place] [address] | | | | | | [phone] | | | +--------+ + + + [...] 03/08/ | Office | [facility] | [facility] | [facility] | Visit | | [address] | | | | | | [address] [facility] | | | | | | [address] [place] | | | | | | [address] | | | | | | | [...] [place], | | | | | | [place] [address] | | | | | | [phone] | | | | | | | | +--------+ + + + + documented as of this encounter Visit Diagnoses Not on filedocumented in this encounter"
--- OUTSIDE RECORDS SUMMARY | ~2019-02-13 | XMS | Encounter Summary ---
Demographics + + + | Address | [address] | | | [place] [address] | + + + | Home Phone | | + + + | Preferred Language | Unknown | + + + | Marital Status | | + + + | Restorationism Affiliation | NRP | + + + | Race | White | + + + | Ethnic Group | Not or | + + + Author + + + | Author | [facility] | + + + | Organization | [facility] | + + + | Address | Unknown | + + + | Phone | Unavailable | + + + Support + + + + + | Name | Relationship | Address | Phone | + + + + + | [place] Will | ECON | [address] | | | | | [place] [address] | | + + + + + Care Team Providers + +------+ + | Care Contaminated Land Consultant Name | Role | Phone | + +------+ + | Chato Matson MD | PCP | | + +------+ + Encounter Details +--------+ + + + + | Date | Type | Department | Care Team | Description | +--------+ + + + + | 04/02/ | Pharmacy | Outpatient Retail | | | | 2016 | Visit | [facility] | | | | | | [address] | | | | | | [facility] | | | | | | [place], [place] | | | | | | [address] | | | +--------+ + + + [...]
--- OUTSIDE RECORDS SUMMARY | ~2019-02-13 | XMS | Encounter Summary ---
Demographics + + + | Address | [address] | | | [place] [address] | + + + | Home Phone [...] | Author | [facility] | | | and [place] | + [...] [place] | | | | | [address] | | + + + + + Care Team Providers + +------+ + | Care Tower Climber Name | Role | Phone | + +------+ + | Young Haque DO | PCP | | + +------+ + Encounter Details +--------+ + + + + | Date | Type | Department | Care Team | Description | +--------+ + + + + | 03/28/ | Abstract | [facility] [place] | Jenny, | | | 2019 | | CARDIOLOGY [address] | [address]ME MISTRESS [address] | | | | | [place], | [place], | | | | | [place] [address] | [place] [address] | | | | | [phone] | [phone] | | | | | | | [...] | | | | [address] , [facility] | | | | | | [address] [place] | | | | | | [address] | | | | | | | | +--------+ + + + + | 03/24/ | Procedure | Cardiology | | | | 2018 | visit | | | | +--------+ + + + + | 03/24/ | Office | Cardiology | Jenny, | | | 2018 | Visit | | ADARSH [address] | | | | | | [place], | | | | | | [place] [address] | | | | | | [phone] | | | | | | | [...]
--- OUTSIDE RECORDS SUMMARY | ~2019-02-13 | XMS | Encounter Summary ---
Demographics + + + | Address | [address] | | | [place] [address] | + + + | Home Phone [...] | | | | | [place] [address] | | + + + + + Care Team Providers + +------+ + | Care Technical Administrative Assistant Name | Role | Phone | [...] | | 2017 | Event | [facility] | MD [address] [facility] | | | | | Admitting Desk | [facility] | | | | | Located on the | [place], [place] | | | | | [address] | [address] | | | | | [facility] | [phone] | | | | | [place], [place] | | | | | | [address] | | | +--------+ + + + [...] 12:01 | | | | | Starting [facility] 03/19/17 at 1201, | | PM PDT | | | | | Until [facility] 03/19/17 at 1244 | | | | | | + +-------+ +---------+---+---+ +---+---+ | | | +---+---+ + +---------+ + +--------+---+ | propofol (DIPRIVAN) injection | New Bag | 03/19/20 | 30 | 20.34 | | | INTRAPROCEDURE CONTINUOUS PRN, | | 17 9:26 | mcg/kg/m | mL/hr | | | Starting [facility] 03/19/17 at 0926, | | AM PDT | in | | | | Until [facility] 03/19/17 at 1244 | | | | [...]
--- OUTSIDE RECORDS SUMMARY | ~2019-02-13 | XMS | Encounter Summary ---
Demographics + + + | Address | [address] | | | [place] [address] | + + + | Home Phone [...] | | | | | [place] [address] | | + + + + + Care Team Providers + +------+ + | Care Motor Transport Inspector Name | Role | Phone | [...] | | | | | involving | [place], [place] | | | | | | left main | [address] | | | | | | coronary | Phone: | | | | | | artery (HCC) | [phone] | | | | | | Procedures | Fax: | | | | | | | [phone] | | | | | | OCCUPATIONAL [...] | | | | elevation | [address] [facility] | | | | | | myocardial | [address] | | | | | | infarction | Rd | | | | | | involving | [place], [place] | | | | | | left main | [address] | | | | | | coronary | Phone: | | | | | | artery (HCC) | [phone] | | | | | | Procedures | Fax: | | | | | | PHYSICAL | [phone] | | | | | | THERAPY [...] REHAB - [facility] | [address]THONY [address] | [address] | | | | | | [address] | [place], | | | | | | [place], [place] | [place] [address] | | | | | | [address] | Phone: | | | | | | Phone: | [phone] | | | | | | [phone] | Fax: | | | | | | Fax: | [phone] | | | | | | [phone] | | +--------+--------+ + + + + [...] | | | | | Ave | [place], | | | | | | [place], [place] | [place] [address] | | | | | | [address] | Phone: | | | | | | Phone: | [phone] | | | | | | [phone] | Fax: | | | | | | Fax: | [phone] | | | | | | [phone] | | +--------+--------+ + + + + [...] | | | 04/02/ | | HOSPITAL [place], | [place], [place] | | | 2016 | | [place] [address] | [address] | | | | | [phone] | [phone] | | | | | | | | | | | | Rolly Reeves, | | | | | | [address] | | | | | | Ave [place], [place] | | | | | | [address] | | | | | | [phone] | | | | | | | | | | | | Terry Ochoa MD | | | | | | [address] | | | | | | [place], [place] | | | | | | [address] | | | | | | [phone] | | | | | | | | | | | | Monika Cooper, | | | | | | Rehana Downey MD,MPH [address] | | | | | [address] | | | | | | [address] [place], [place] | | | | | | [address] | | | | | | [phone] | | | | | | | | | | | | Ariana Bose, | | | | | | DO [address] | | | | | | [address] | | | | | | [place], [place] | | | | | | [address] | | | | | | [phone] | | | | | | | | | | | | Aria Rojas MD | | | | | | [address] | | | | | | [place]itha [place], | | | | | | [place] [address] | | | | | | [phone] | | | | | | | [...] 2:26 PM PDT CLINICAL HOSPITALIST DISCHARGE SUMMARY [facility] Discharging Provider: Aria Rojas MD [...] follow up ludmila miller with a local retail director in [place]. #Acute cardiogenic shock in the setting ofSTEMI [...] 44 to 32 during first day at [facility] , with addition decline to 24 [...] (noted on o utside records). Patient on [place] 10/325 q8 as outpatient. Was receiving scheduled [...] then take 7.5 mg (one and one-h prison tablets) daily starting 04/03/2017 Indications: JAVON thrombus, [...] Fax Number [facility] Yes [address] [place] [address] [phone] Medina Roger RN 04/02/2017 11:31 Medina Roger RN, 04/02/2017 11:28 AM: Spoke with Latricia, 7 day auth # [id number] has been provided. Contacted Tanisha at facility , arranging anticipated medicaid transport by stretcher at 2 pm today. Spoke with patient and souse concerning dc; they are both in agreement. Medina Roger, RN, 04/02/2017 9:20 AM: Contacted Latriciabettina Landry [phone] referencing auth# for SNF placement. Medina Roger RN, 04/01/2017 11:42 AM: Spoke with Malathi [phone], at facility admissions. Patient is accepted to facility. 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 F&MS working with patient and family to add Medicaid ser vices to benefits. When added patient will have travel benefit. CM contacted Shahab Holman re [employer] training. Tamia Van, RN, 03/30/2017 1:21 PM: Received VM from Emily Terrell CM with [facility] to send referral to this location . Referral made, awaiting response. Follow Up: Schedule the following appointment(s) when you get home Follow up with [facility] . Specialties: Half-Way Facility, Intermediate Care Facility Contact information [address] [place] [address] Follow up with LAUREN CHESTER MD. Go on 04/07/2017. Specialty: Cardiology Why: at 8:30 AM to establish Cardiology follow up Contact information [facility] [address] [address] Aria Rojas MD Division of Hospital Medicine [facility] I spent 60 minutes on discharge activities on the day of discharge, including counseling of the patient and his regarding his discharge plan and in coordination of care on the mn rd with nursing, pharmacy, and Heart Failure.Electronically [...] and chronic pain who was transferred to [facility] on 03/15 s/p STEMI with cardiogeni c [...] will need Life Vest follow up with retail director in [place] on discharge - appr eciate cardiology assistance [...] hematoma, but possibly some candidal infection/intertrigo. On [place] 10/325 Q8H as an outp atient. -Continue [...] 44 to 32 during first day at [facility], with addition decline to 24 th [...] Aria Rojas MD Division of Hospital Medicine [facility] Pager [phone] I spent 36 minutes on the patient [...] and chronic pain who was transferred to [facility] on 03/15 s/p STEMI with cardiogeni c [...] will need Life Vest follow up with retail director in [place] on discharge - appr iate cardiology assistance [...] hematoma, but possibly some candidal infection/interrigo. On [place] 10/ Q8H as an outpa tient. -Continue [...] discharge. -CM looking for skilled placement in [place] near patient's home; appreciate assistance At risk for malnutrition Very little PO intake but reportedly improving. Previously had dobhoff feeding tube in the CVICU.Nutrition assistance appreciated. -Calorie count ongoing -Encouraging PO intake Normocytic anemia Hct dropped abruptly from 44 to 32 during first day at [facility], with addition decline to 24 th [...] Aria Rojas MD Division of Hospital Medicine [facility] Pager [phone] I spent 36 minutes on the patient encounter today, >50% in counseling of the patient's on the above plan of care and in coordination of care on the arizmendi with nursing and Heart Fa ilure. Ariana Ivy DO - 03/30/2017 5:49 PM PDT CLINICAL HOSPITALIST SERVICE PROGRESS NOTE PATIENT'S NAME/MRN: Ron Mckeon/[id number] HOSPITAL DAY: #15 24-HOUR EVENTS & SUBJECTIVE: -patient complained of typical anginal chest pain and had STEMI code last night, anterior S T elevation on serial EKGs, given 325mg ASA, started on heparin drip (had been turned off fo r JAVON thrombus yesterday afternoon with warfarin therapeutic), patient went to the cath lab nurse -on angiography, interventionalists noted "patent stent traversing [...] 7.5 mg, 7.5 mg, oral, QPM, Ariana [place], OBJECTIVE: Last Vitals: BP 101/56 | Pulse [...] daily - Patient will follow up with retail director in [place] on discharge; appreciate cardiolo adriana assistance with [...] stenosis (noted on o utside records, on [place] q8 as outpatient) Improved today -continue oxycodone [...] 44 to 32 during first day at [facility] , with addition decline to 24 [...] assistance Barriers for DC: delivery/approval of lifevest, [facility] bed Ariana Bose DO Candy Butcherstorage engineer Clinical Hospitalist and Medicine Teaching Service Division of Hospital Medicine [facility] Pager [phone] [facility] DEPARTMENT: Hosp- [id number] Place of Service: Date of Service: 03/26/2017 CSN: [id number] Modifiers:GC Resident Involved: Yes Suggested CPT: 12913 Subsequent Visit Detailed/High complexity 35 min Cristi [...] given continued elevated Tn, patient's significant recent NV, we activated the cath lab nurse. Patient received 325 mg ASA at bedside and was briefly on heparin which has since been disc ontinued. Per cardiology will continue daily 81 mg ASA, plavix and warfarin. Continue to t rend troponins as well. I spent 30 minutes with this patient with >50% of the time evaluating patient at the [facility] on numerous occasions, evaluating studies and coordinating care w/ cardiology.Electronical ly signed by Ivette Chaudhry MD at 03/30/2017 6:24 AM Gerson Oseguera MD - 03/30/2017 4:31 AM PDTCardiology Preliminary Procedure Note (Full report to follow) Primary Care Provider: Jamal Guerrero MD Referring Provider: No Referring Provider Per Patient External Auditor Staff: Katarina Ngo M.D. Procedure(s): Coronary Angiography [...] None Complications: None Hemostasis: Manual compression in cath lab nurse. Site: [facility] Recommendations: Patient Status: Inpatient Usual post cath care. Ariana Ivy D O - 03/29/2017 9:30 AM PDT CLINICAL HOSPITALIST SERVICE PROGRESS NOTE PATIENT'S NAME/MRN: Ron Mckeon/[id number] HOSPITAL DAY: #14 24-HOUR EVENTS & SUBJECTIVE: [...] stenosis (noted on o utside records, on [place] 10 q8 as outpatient) -continue oxycodone 10mg [...] 44 to 32 during first day at [facility] , with addition decline to 24 [...] arm, midline left arm Ariana Bose DO Candy Butcherstorage engineer Clinical Hospitalist and Medicine Teaching Service Division of Hospital Medicine [facility] Pager [phone] [facility] DEPARTMENT: Hosp- [id number] Place of Service: - Date of Service: 03/26/2017 CSN: [id number] Modifiers:GC Resident Involved: Yes Suggested CPT: 33386 Subsequent Visit Detailed/High complexity 35 min Ariana Ivy DO - 03/28/2017 8: 06 AM PDT CLINICAL HOSPITALIST SERVICE PROGRESS NOTE PATIENT'S NAME/MRN: Ron Mckeon/[id number] HOSPITAL DAY: #13 24-HOUR EVENTS & SUBJECTIVE: [...] stenosis (noted on o utside records, on [place] q8 as outpatient) Improving L groin pain [...] 44 to 32 during first day at [facility] , with addition decline to 24 [...] arm, midline left arm Ariana Bose DO Candy Butcherstorage engineer Clinical Hospitalist and Medicine Teaching Service Division of Hospital Medicine [facility] Pager [phone] [facility] DEPARTMENT: Hosp- [id number] Place of Service: - Date of Service: 03/26/2017 CSN: [id number] Modifiers:GC Resident Involved: Yes Suggested CPT: 36439 Subsequent Visit Detailed/High complexity 35 min Ariana [...] 44 to 32 during first day at [facility] , with addition decline to 24 [...] arm, midline left arm Ariana Bose DO Candy Butcherstorage engineer Clinical Hospitalist and Medicine Teaching Service Division of Hospital Medicine [facility] Pager [phone] [facility] DEPARTMENT: Hosp- [id number] Place of Service: - Date of Service: 03/26/2017 CSN: [id number] Modifiers:GC Resident Involved: Yes Suggested CPT: 46146 Subsequent Visit Detailed/High complexity 35 min Chapis [...] 44 to 32 during first day at [facility] , with addition decline to 24 [...] arm, midline left arm Ariana Bose DO Candy Butcherstorage engineer Clinical Hospitalist and Medicine Teaching Service Division of [facility] Medicine [facility] Pager [phone] [facility] DEPARTMENT: Hosp- [id number] Place of Service: - Date of Service: 03/26/2017 CSN: [id number] Modifiers:GC Resident Involved: Yes Suggested CPT: 14883 Subsequent Visit Detailed/High complexity 35 min Wan Cano MD - 03/25/2017 3:07 PM PDT . Cardiovascular Intensive Care Unit Attending Progress Note CVICU D2 Assigned #[id number] ICU Admission Reason Most Recent Value ICU [...] artery. ANY X2 placed in outs surinder cath lab nurse along with IABP. Arrived in cardiogenic shock, [...] Pager Mellisa Haji MD Admitting Provider Cardiology 49985 Zelalem Del Toro MD ICU PM Attending Anesthesiology 00082 Code Status Code Status Full Code The Advanced Care Note for this patient can be found under the notes tab in chart review. Quality section Reardon necessity reviewed: Hourly/Accurate measurement of urinary output for clinical manage ment of critically ill patients Wan Deleon MD, JOHN, ERVIN Cardiovascular Intensive Care Unit [address] [place], [place] [address] I have spent a total of 38 [...] xceptions/additions as noted. Date of Service: 03/25/2017 [facility] DEPARTMENT: ANE ICU CARDIAC Place of Service:- Inpatient CSN: [id number] Suggested Modifier: GC - Resident Involved Suggested CPT: TO MAT TESTER Jose Ramon Khan MD - 03/24/2017 10:54 AM PDT . Cardiovascular Intensive Care Unit Team Progress Note CVICU D2 Assigned #[id number] ICU Admission Reason Most Recent Value ICU [...] artery. ANY X2 placed in outs surinder cath lab nurse along with IABP. Arrived in cardiogenic shock, [...] & Plan Patient went into VFib during cath lab nurse procedure at [facility]. Was shocked 17 times Targeted temperature [...] edema. Patient was difficult intubation at outside cath lab nurse. -secretions improving, cough strong -s/p 7 days [...] Pager Mellisa Haji MD Admitting Provider Cardiology 91772 Zelalem Del Toro MD ICU PM Attending Anesthesiology 93385 The Advanced Care Note for this patient [...] Ramon Alvarado MD Author:Jose Ramon Alvarado MD [address] [address] [place] [address]Evamzjauvwfbtr signed by Jose Ramon Alvarado MD at 03/24/2017 11:00 AM Wan Cano MD - 03/24/2017 9:47 AM PDTFormatting of this note might be diff erent from the original. Cardiovascular Intensive Care Unit Attending Progress Note CVICU D2 Assigned #[id number] ICU Admission Reason Most Recent Value ICU [...] artery. ANY X2 placed in outs surinder cath lab nurse along with IABP. Arrived in cardiogenic shock, [...] Pager Mellisa Haji MD Admitting Provider Cardiology 68959 Zelalem Del Toro MD ICU PM Attending Anesthesiology 60333 Code Status Code Status Full Code The Advanced Care Note for this patient can be found under the notes tab in chart review. Quality section Reardon necessity reviewed: Hourly/Accurate measurement of urinary output for clinical manage ment of critically ill patients Wan Deleon MD, JOHN, ERVIN Cardiovascular Intensive Care Unit [address] [place] [address] I have spent a total of 42 [...] xceptions/additions as noted. Date of Service: 03/24/2017 [facility] DEPARTMENT: [facility] ICU CARDIAC Place of Service:- Inpatient CSN: [id number] Suggested Modifier: GC - Resident Involved Suggested CPT: TO MAT TESTER Author:Wan Deleon Md, [address] [email or web address] signed by Wan Deleon MD at 03/24/2017 9:49 AM Tamia De La Paz PA-C - 03/23/2017 11:54 PM PDTFormatting of this note might be diff erent from the original. Cardiovascular Intensive Care Unit Clinical Update Note Team: D2 Team Pager: [phone] Attending: Katey Pt Name: Ron Mckeon ID: Abbreviated HPI Abbreviated HPI / Daily Assessment Ron Mckeon is a 61 year old man with acute cardiogenic shock in the setting of acu te STEMI from thrombosed left main coronary artery. Initially had lesion in proximal LAD and distal LM, but then acutely thrombosed his left main coronary artery. ANY X2 placed in outs surinder cath lab nurse along with IABP. Arrived in cardiogenic shock, [...] Unit Team Progress Note CVICU D2 Assigned #[id number] ICU Admission Reason Most Recent Value ICU [...] artery. ANY X2 placed in outs surinder cath lab nurse along with IABP. Arrived in cardiogenic shock, [...] STEMI (ST elevation myocardial infarction) ([facility]) Yes Overview Xience Alpine 3.0 mm X [...] & Plan Patient went into VFib during cath lab nurse procedure at [facility]. Was shocked 17 times Targeted temperature [...] edema. Patient was difficult intubation at outside cath lab nurse. -fevering nightly, cultures negative, WBC stable -secretions [...] Pager Mellisa Haji MD Admitting Provider Cardiology 74038 The Advanced Care Note for this patient [...] possible) Created by Jose Ramon Alvarado MD Author:JoseR amon Alvarado MD [address] [address]Hakkvtkcyszhrh signed by Jose Ramon Alvarado MD at 03/23/2017 11:41 AM PDTWan Deleon MD - 03/23/2017 9:51 AM PDTFormatting of this note might be diff erent from the original. Cardiovascular Intensive Care Unit Attending Progress Note CVICU D2 Assigned #[id number] ICU Admission Reason Most Recent Value ICU [...] artery. ANY X2 placed in outs surinder cath lab nurse along with IABP. Arrived in cardiogenic shock, [...] Pager Mellisa Haji MD Admitting Provider Cardiology 70640 Code Status Code Status Full Code The Advanced Care Note for this patient can be found under the notes tab in chart review. Quality section A-Line necessity reviewed: Plan to DC today Reardon necessity reviewed: Hourly/Accurate measurement of urinary output for clinical manage ment of critically ill patients Currently at risk for: delirium, stroke, NV, arrythmia, tamponade, PE, respiratory failure, ARDS, aspiration, AYLIN / ARF, coagulopathy, DVT, stress ulcers, sepsis, BONIFACIO, electrolyte per turbations, malnutrition, deconditioning and decubiti. Wan Deleon MD, JOHN, ERVIN Cardiovascular Intensive Care Unit [facility] [place] [address] I have spent a total of 44 [...] xceptions/additions as noted. Date of Service: 03/23/2017 [facility] DEPARTMENT: [facility] ICU CARDIAC Place of Service:- Inpatient CSN: [id number] Suggested Modifier: GC - Resident Involved Suggested CPT: TO MAT TESTER Tamia De La Paz PA-C - 03/22/2017 7:58 PM PDT . Cardiovascular Intensive Care Unit Clinical Update Note Team: D2 Team Pager: [phone] Attending: Abdulaziz Merrill Name: Rno Mckeon ID: [...] Unit Attending Progress Note CVICU D2 Assigned #[id number] ICU Admission Reason Most Recent Value ICU [...] long tobacco abuse history, presenting with acute NV and STEMI, resu ltant cardiogenic shock refractory [...] Pager Mellisa Haji MD Admitting Provider Cardiology 07837 Code Status Code Status Full Code Quality section A-Line necessity reviewed: Ykpl-fs-yhbv blood pressure monitoring Reardon necessity reviewed: Hourly/Accurate [...] Date of Service: 03/22/2017 Author:Anurag Ashby MD [address] [address]Aokojkcwtmvklw signed by Anurag Ashby MD at 03/22/2017 11:07 AM P Macho Sellers MD - 03/22/2017 11:00 AM PDT Cardiovascular Intensive Care Unit Team Progress Note CVICU D2 Assigned #[id number] ICU Admission Reason Most Recent Value ICU [...] & Plan Patient went into VFib during cath lab nurse procedure at [facility]. Was shocked 17 times Targeted temperature [...] edema. Patient was difficult intubation at outside cath lab nurse. -vanc zosyn stopped 03/17 -fever 38.3 last [...] Pager Mellisa Haji MD Admitting Provider Cardiology 43661 This patient does not have an Advanced Care Note for this Admission. Please use the Goal of care section of your ICU navigator to document the advanced care discussion. Quality section A-Line necessity reviewed: Kjsc-em-ento blood pressure monitoring Reardon necessity reviewed: Hourly/Accurate measurement of urinary output for clinical manage ment of critically ill patients FAST HUG Feeding: Tube Feeds: Replete @ 55 mL/hr Analgesia: APAP, hydromorphone PRN Sedation: N/A Thromboprophylaxis: Heparin infusion Head of Bed: Head of Bed >30 degrees Ulcer Prophylaxis: Famotidine Glycemic Control: insulin infusion Created by Macho Gaytan MD Author:Macho Gaytan MD [address] [address]Hpulizstzyiubh signed by Macho Gaytan MD at 03/23/2017 12:35 PM PDTT Tamia leon PA-C - 03/21/2017 7:02 PM PDTFormatting of this note might be different f rom the original. Cardiovascular Intensive Care Unit Clinical Update Note Team: D2 Team Pager: [phone] Attending: Abdulaziz Merrill Name: Ron Mckeon ID: [...] Opens eyes, nods head. 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 Was shocked 17 times Targeted temperature [...] edema. Patient was difficult intubation at outside cath lab nurse. -vanc zosyn stopped 03/17 -fever 38.3 last [...] Pager Mellisa Haji MD Admitting Provider Cardiology 91582 This patient does not have an Advanced Care Note for this Admission. Please use the Goal of care section of your ICU navigator to document the advanced care discussion. Quality section A-Line necessity reviewed: Pyrb-kc-klsp blood pressure monitoring CVC necessity reviewed: Hemodynamic [...] by Macho Gaytan MD Author:Macho Gaytan MD [address] [address]Prrwpvocdltxoc signed by Macho Gaytan MD at 03/21/2017 1:43 PM Anurag Paredes MD - 03/21/2017 12:22 PM PDT Cardiovascular Intensive Care Unit Attending Progress Note CVICU D2 Assigned #[id number] ICU Admission Reason Most Recent Value ICU [...] long tobacco abuse history, presenting with acute NV and STEMI, resu ltant cardiogenic shock refractory [...] Pager Mellisa Haji MD Admitting Provider Cardiology 73793 Code Status Code Status Full Code Quality section A-Line necessity reviewed: Bkyc-ph-fuyt blood pressure monitoring CVC necessity reviewed: Plan [...] Date of Service: 03/21/2017 Author:Anurag Ashby MD [address] [address] [place] [address]Lomlwwubjzoaec signed by Anurag Ashby MD at 03/21/2017 12:22 PM P Jose Ramon Coburn MD - 03/20/2017 12:36 PM PDTFormatting of this note might be differen t from the original. Cardiovascular Intensive Care Unit Team Progress Note CVICU D2 Assigned #[id number] ICU Admission Reason Most Recent Value ICU [...] & Plan Patient went into VFib during cath lab nurse procedure at [facility]. Was shocked 17 times Targeted temperature [...] edema. Patient was difficult intubation at outside cath lab nurse. -vanc zosyn stopped 03/17 -fever 38.3 last [...] Pager Mellisa Haji MD Admitting Provider Cardiology 48823 Quality section A-Line necessity reviewed: Ybrc-cf-wlhr blood pressure monitoring CVC necessity reviewed: Hemodynamic [...] Ramon Alvarado MD Author:Jose Ramon Alvarado MD [address] [address]Bebmoivivwrvzx signed by Jose Ramon Alvarado MD at 03/20/2017 12:49 PM PDTMoulton, Anurag Soni MD - 03/20/2017 12:18 PM PDTFormatting of this note might be differen t from the original. Cardiovascular Intensive Care Unit Attending Progress Note CVICU D2 Assigned #[id number] ICU Admission Reason Most Recent Value ICU [...] long tobacco abuse history, presenting with acute NV and STEMI, resu ltant cardiogenic shock refractory [...] Pager Mellisa Haji MD Admitting Provider Cardiology 13918 Code Status Code Status Full Code Quality section A-Line necessity reviewed: Ivke-af-kguv blood pressure monitoring CVC necessity reviewed: Medication [...] Date of Service: 03/20/2017 Author:Anurag Ashby MD [address] [address] [place] [address]Gxnrmusrqybbdj signed by Anurag Ashby MD at 03/20/2017 12:18 PM P Raul Conte MD - 03/19/2017 11:01 PM PDTFormatting of this note might be different fro m the original. Cardiovascular Intensive Care Unit Attending Progress Note CVICU D2 Assigned #[id number] ICU Admission Reason Most Recent Value ICU [...] long tobacco abuse history, presenting with acute NV and STEMI, resu ltant cardiogenic shock refractory [...] Pager Mellisa Haji MD Admitting Provider Cardiology 44031 Code Status Code Status Full Code Quality section A-Line necessity reviewed: Femq-gk-yuqp blood pressure monitoring CVC necessity reviewed: Hemodynamic [...] Date of Service: 03/19/2017 Author:Raul Wei MD [place] [id number] Jose Ramon Rodriguez MD - 03/19/2017 4:49 PM PDT Cardiovascular Intensive Care Unit Team Progress Note CVICU D2 Assigned #[id number] ICU Admission Reason Most Recent Value ICU [...] & Plan Patient went into VFib during cath lab nurse procedure at [facility]. Was shocked 17 times Targeted temperature [...] edema. Patient was difficult intubation at outside cath lab nurse. -vanc zosyn stopped 03/17 -fever 38.3 03/17 [...] Pager Mellisa Haji MD Admitting Provider Cardiology 14609 Quality section A-Line necessity reviewed: Ydia-yq-ttpa blood pressure monitoring CVC necessity reviewed: Hemodynamic monitoring Reardon necessity reviewed: Hourly/Accurate measurement of urinary output for clinical manage ment of critically ill patients FAST HUG Feeding: TFs Analgesia: multimodal Sedation: propofol Thromboprophylaxis: Heparin infusion Head of Bed: Head of Bed >30 degrees Ulcer Prophylaxis: protonix Glycemic Control: insulin infusion Created by Jose Ramon Alvarado MD Author:Jose Ramon Alvarado MD [address] [address]Jdmlkhjwjebvxh signed by Jose Ramon Alvarado MD at 03/19/2017 4:54 PM Lee Fernandez MD - 03/19/2017 2:22 PM PDTFormatting of this note might be different fr om the original. . Extracorporeal Life Support Service Daily Progress Note Pager #[phone] Type: Veno-Arterial (CPT 65834 or 86[address]) Date of insertion: 03/15/2017 Diagnosis:Cardiogenic shock Dressing [...] Unit Attending Progress Note CVICU D2 Assigned #[id number] ICU Admission Reason Most Recent Value ICU [...] long tobacco abuse history, presenting with acute NV and STEMI, resu ltant cardiogenic shock refractory [...] Pager Mellisa Haji MD Admitting Provider Cardiology 41038 Code Status Code Status Full Code Quality section A-Line necessity reviewed: Nghw-zk-wptp blood pressure monitoring CVC necessity reviewed: Medication [...] Date of Service: 03/19/2017 Author:Anurag Ashby MD [address] [id number] signed by Anurag Ashby MD at 03/19/2017 2:17 PM P Jose Ramon Coburn MD - 03/18/2017 12:56 PM PDTFormatting of this note might be differen t from the original. Cardiovascular Intensive Care Unit Team Progress Note CVICU D2 Assigned #[id number] ICU Admission Reason Most Recent Value ICU [...] afterload Discussed possible removal tomorrow (hal) or (bodulio) pm STEMI (ST elevation myocardial infarction) ([facility]) Yes Overview Xience Alpine 3.0 mm X [...] & Plan Patient went into VFib during cath lab nurse procedure at [facility]. Was shocked 17 times Targeted temperature [...] edema. Patient was difficult intubation at outside cath lab nurse. -vanc zosyn stopped today Abnormal CK Unknown [...] Pager Mellisa Haji MD Admitting Provider Cardiology 50105 Quality section A-Line necessity reviewed: Xtkx-mq-hqlt blood pressure monitoring CVC necessity reviewed: Hemodynamic monitoring Reardon necessity reviewed: Hourly/Accurate measurement of urinary output for clinical manage ment of critically ill patients FAST HUG Feeding: trickle feeds Analgesia: multimodal Sedation: propofol Thromboprophylaxis: Heparin infusion Head of Bed: Head of Bed >30 degrees Ulcer Prophylaxis: nexium Glycemic Control: insulin infusion Created by Jose Ramon Alvarado MD Author:Jose Ramon Alvarado MD [address] [address]Nriytnunhnnajk signed by Jose Ramon Alvarado MD at 03/18/2017 1:27 PM PDTMoulton, Anurag Soni MD - 03/18/2017 11:56 AM PDTFormatting of this note might be differen t from the original. Cardiovascular Intensive Care Unit Attending Progress Note CVICU D2 Assigned #[id number] ICU Admission Reason Most Recent Value ICU [...] long tobacco abuse history, presenting with acute NV and STEMI, resu ltant cardiogenic shock refractory [...] Pager Mellisa Haji MD Admitting Provider Cardiology 63588 Code Status Code Status Full Code Quality section A-Line necessity reviewed: Psad-ts-vguu blood pressure monitoring CVC necessity reviewed: Medication [...] Date of Service: 03/18/2017 Author:Anurag Ashby MD [address] [id number] signed by Anurag Ashby MD at 03/18/2017 11:59 AM Lee Prince MD - 03/18/2017 11:37 AM PDTFormatting of this note might be different from nissa suh original. . Extracorporeal Life Support Service Daily Progress Note Pager #[phone] Type: Veno-Arterial (CPT 95050 or 82118) Diagnosis:Cardiogenic shock Dressing changed: no Dressing Changed [...] Life Support Service Daily Progress Note Pager #[phone] Type: Veno-Arterial (CPT 95508 or 53536) Date of insertion: 03/15/2017 Diagnosis:Cardiogenic shock Dressing [...] Unit Attending Progress Note CVICU D2 Assigned #[id number] ICU Admission Reason Most Recent Value ICU [...] long tobacco abuse history, presenting with acute NV and STEMI, resu ltant cardiogenic shock refractory [...] Pager Mellisa Haji MD Admitting Provider Cardiology 82841 Quality section A-Line necessity reviewed: Bjml-xt-ende blood pressure monitoring CVC necessity reviewed: Rapid [...] Date of Service: 03/17/2017 Author:Raul Wei MD [address] [place] [address]Qaokzebfheiofv signed by Raul Wei MD at 03/17/2017 9:20 PM PD Anurag Kaba MD - 03/17/2017 1:58 PM PDTFormatting of this note might be different fro m the original. Cardiovascular Intensive Care Unit Attending Progress Note CVICU D2 Assigned #[id number] ICU Admission Reason Most Recent Value ICU [...] long tobacco abuse history, presenting with acute NV and STEMI, resu ltant cardiogenic shock refractory [...] Pager Mellisa Haji MD Admitting Provider Cardiology 44780 Quality section A-Line necessity reviewed: Msso-yf-jevv blood pressure monitoring CVC necessity reviewed: Medication [...] Date of Service: 03/17/2017 Author:Anurag Ashby MD [address] [address]Qcuqxkzcpewuvc signed by Anurag Ashby MD at 03/17/2017 2:00 PM P Mauri Calderon - 03/17/2017 1:01 PM PDTTransthoracic echocardiogram completed. Final r eport to follow. Teddy Ibrahim DO, MS - 03/17/2017 10:00 AM PDT Cardiovascular Intensive Care Unit Team Progress Note CVICU D2 Assigned #[id number] ICU Admission Reason Most Recent Value ICU [...] & Plan Patient went into VFib during cath lab nurse procedure at [facility]. Was shocked 17 times Targeted temperature [...] edema. Patient was difficult intubation at outside cath lab nurse. -vanc zosyn stopped today Abnormal CK Unknown [...] Pager Mellisa Haji MD Admitting Provider Cardiology 43330 This patient does not have an Advanced Care Note for this Admission. Please use the Goal of care section of your ICU navigator to document the advanced care discussion. Quality section A-Line necessity reviewed: Sjoi-he-ynjv blood pressure monitoring CVC necessity reviewed: Hemodynamic monitoring Reardon necessity reviewed: Hourly/Accurate measurement of urinary output for clinical manage ment of critically ill patients FAST HUG Feeding: Tube Feeds Analgesia: apap, oxy, hm Sedation: propofol Thromboprophylaxis: Heparin infusion Head of Bed: Head of Bed Flat Ulcer Prophylaxis: Pantoprazole Glycemic Control: insulin infusion Created by Teddy Kee Do, MS [facility] DEPARTMENT: [facility] ICU CARDIAC Place of Service:- Inpatient CSN: [id number] Suggested Modifier: GC - Resident Involved Suggested CPT: TO MAT TESTER Author:Teddy Kee Do, MS [address] [address]Tcnfjnhgacdqdi signed by Teddy Kee DO, MS at 03/17/2017 6:35 PM Raul Hanson MD - 03/16/2017 7:38 PM PDT Cardiovascular Intensive Care Unit Attending Progress Note CVICU D2 Assigned #[id number] ICU Admission Reason Most Recent Value ICU [...] long tobacco abuse history, presenting with acute NV and STEMI, resu ltant cardiogenic shock refractory [...] Pager Mellisa Haji MD Admitting Provider Cardiology 59016 Quality section A-Line necessity reviewed: Qrlh-jc-zinr blood pressure monitoring CVC necessity reviewed: Rapid [...] Date of Service: 03/16/2017 Author:Raul Wei MD [address] [address]Qkidjvwficcxbu signed by Raul Wei MD at 03/17/2017 11:03 AM PD Jose Ramon Rodriguez MD - 03/16/2017 5:15 PM PDT Cardiovascular Intensive Care Unit Team Progress Note CVICU D2 Assigned #[id number] ICU Admission Reason Most Recent Value ICU [...] & Plan Patient went into VFib during cath lab nurse procedure at [facility]. Was shocked 17 times Now on [...] edema. Patient was difficult intubation at outside cath lab nurse. -bridget retana for now Physical Exam vitals [...] Pager Mellisa Haji MD Admitting Provider Cardiology 57080 Quality section A-Line necessity reviewed: Kvms-rq-temk blood pressure monitoring CVC necessity reviewed: Hemodynamic [...] Ramon Alvarado MD Author:Jose Ramon Alvarado MD [address] [place] [address]Pmkqrclmphhhjq signed by Jose Ramon Alvarado MD at [...] Unit Attending Progress Note CVICU D2 Assigned #[id number] ICU Admission Reason Most Recent Value ICU [...] ICU Day #2 after being transferred from [place] in [place] in acute cardiogenic archie ck following an anterior STEMI. Upon arrival to [facility], decision was made to go emergently [...] Pager Mellisa Haji MD Admitting Provider Cardiology 03198 Quality section A-Line necessity reviewed: Iygp-uj-eoim blood pressure monitoring CVC necessity reviewed: Hemodynamic [...] Date of Service: 03/16/2017 Author:Anurag Ashby MD [address] [address]Rorcomkqattgga signed by Anurag Ashby MD at 03/16/2017 1:23 PM Lee Prince MD - 03/16/2017 9:41 AM PDTFormatting of this note might be different from t vikash original. . Extracorporeal Life Support Service Daily Progress Note Pager #[phone] Type: Veno-Arterial (CPT 35759 or 14272) Diagnosis:Cardiogenic shock Dressing changed: no Dressing Changed [...] Clinical Update Note Team: D2 Team Pager: [phone] Attending: Abdulaziz Merrill Name: Ron Mckeon ID: [...] Date of Service: 03/16/2017 Mirna Berumen PA-C [facility] DEPARTMENT: [facility] ICU CARDIAC Place of Service:- Inpatient CSN: [id number] Suggested Modifier: None Suggested CPT: TO MAT TESTER Mirna Berumen PA-C Everardo Valladares MD - 03/15/2017 9:04 PM PDT Cardiovascular Intensive Care Unit Attending Progress Note CVICU D2 Assigned #[id number] ICU Admission Reason Most Recent Value ICU Admission reason Cardiogenic Shock filed at 03/15/2017 1531 Hospital admission dx: left anterior descending artery occlusion, needs cabg Days in ICU Days in Hospital Medical Decision Making ICU Day #1 after being transferred from [place] in [place] in acute cardiogenic archie ck following an anterior STEMI. Upon arrival to [facility], decision was made to go emergently [...] Pager Mellisa Haji MD Admitting Provider Cardiology 48086 Quality section A-Line necessity reviewed: Xcem-ea-lcei blood pressure monitoring CVC necessity reviewed: Hemodynamic [...] and the recent imaging available. Seen with PA/SUPERVISOR [employer] Winston Cole. Please see their note for details. I reviewed the documented findings, all data and the recent imaging available. Date of Service: 03/15/2017 Author:Everardo Cintron MD [address] [address]Ogncodpfgnojmy signed by Everardo Cintron MD at 03/15/2017 9:[address] - 03/15/2017 2:11 PM PDTTransthoracic echocardiogram completed. Final r eport to follow. oniPatrick genao MD,MPH - 03/15/2017 2:00 PM PDT . Extracorporeal Life Support Service Consult Service Note Pager #[phone] Date: 03/15/17 Author: Patrick Ruiz MD,MPH Consulting Attending: Mellisa Haji MD Reason for Consult: VA ECMO Consideration HPI: 61 year old male who presents this afternoon to [facility] in acute cardiogenic shock second maciej to STEMI / thrombosed L main coronary artery. He was transferred from [place]. His symptoms started this morning around 3am and was seen in [place], [place]. He was diagnosed w ith an anterior STEMI and transferred to the cath lab nurse in [place], [place]. He was found to h ave [...] pressors (epinephrine and dopamine). On arrival to [facility], he was in profound cardiogenic shock and hypoxic. His MAP was in the 40s. He was tach ycardic into the 150s. IABP was increased to 1:2. Past Medical History: Past Medical History: Diagnosis Date Cardiogenic shock ([facility]) 03/15/2017 Coronary artery disease 03/15/2017 Hypercholesterolemia Hypertension STEMI (ST elevation myocardial infarction) ([facility]) 03/15/2017 Tobacco use Past Surgical History: Past [...] from cardiogenic shock. Patrick Ruiz MD, MPH lye bath operator Trauma, Critical Care & Acute Care Surgery [facility] onies, Patrick Sexton MD,MPH - 03/15/2017 1:48 PM PDT . . Extracorporeal Life Support Service Initiation Note Pager #[phone] Date of service: 03/15/2017 Author: Patrick Ruiz Md,Mph ECMO Type: Veno-Arterial (CPT 00243 [place] [address]) Oxygenation index FiO2: 100 MAP: 22 Diagnosis:Cardiogenic [...] old male who presents this afternoon to [facility] in acute cardiogenic shock secondary to [...] | + +--------+ + + + | PS-HB-BBR-HB,POC RT | Routin | 03/19/2017 | ST [...] | + +--------+ + + + | LA ECMO REV | Routin | 03/19/2017 | [...] +---+--------+ + +--------+ + + + | QE-WZ-WUO-HB,POC RT | Routin | 03/19/2017 | ST [...] | + +--------+ + + + | TA-TC-TMT-HB,POC RT | Routin | 03/19/2017 | ST elevation | Results for this | | | e | 10:06 AM | myocardial | procedure are in the | | | | PDT | infarction involving | results section. | | | | | left main coronary | | | | | | artery (HCC) | | + +--------+ + + + | BL-XG-UCG-HB,POC RT | Routin | 03/19/2017 | ST [...] | + +--------+ + + + | DX-XH-TCR-HB,POC RT | Routin | 03/17/2017 | ST [...] | + +--------+ + + + | ZT-YN-AVU-HB,POC RT | Routin | 03/16/2017 | ST [...] | + +--------+ + + + | MU-AJ-GYH-HB,POC RT | Routin | 03/16/2017 | ST [...] | + +--------+ + + + | NB-SK-XKL-HB,POC RT | Routin | 03/15/2017 | ST [...] | + +--------+ + + + | CV-UD-XQY-HB,POC RT | Routin | 03/15/2017 | ST [...] | + +--------+ + + + | XS-OS-QYS-HB,POC RT | Routin | 03/15/2017 | ST [...] Height: 175 cm Weight: 89 kgBSA: 2.05 [id number] PHYSICIAN:Katarina Ngo | | .FELLOW:Gerson Mejias M.D. [...] right coronary angiography.COMPLICATIONS:None.TECHNIQUE:Right femoral artery | | 6-Canadian 10 cm [place] sheath, 6-Canadian XB 3.5 guide catheter, 5-Canadian JR4 | | catheter.DESCRIPTION OF PROCEDURE:Informed consent [...] modified Seldinger technique and a | | 5-Canadian micropuncture system, a 6-Canadian 10 cm [place] sheath was placed in the right | | femoral artery. A 6-Canadian XB 3.5 guide catheter was inserted into the ascending aorta | | over a guidewire. The guidewire was removed. The catheter was aspirated and flushed. | | The left coronary system was selectively engaged and imaged in multiple projections. A | | 5-Canadian Kymberly right 4 catheter was advanced to [...] DOSE AREA | | PRODUCT: 3749 cGy [id number]:Aortic pressure 87/15, mean aortic pressure 63, heart [...] 03/30/2017 04:50:01DT: | | 03/30/2017 08:34:34Job #: [id number] | |extending from it into the LAD. [...] |YDT/MODL | | | | | | /[id number] | + + CAPILLARY BLOOD GLUCOSE (NO [...] [facility] | [address] | [place], [place] | | | JULIANN SILVA OF CARE | [address] | [address] | | | TESTS | | | [...] | + + + + + | [facility] | [address] | [place] [address] | | | SERVICES, CORE | PARK [...] | + + + + + | [facility] | [address] | [place] [address] | | | SERVICES, CORE | PARK [...] [facility] | [address] | [place] [address] | | | SERVICES, CORE | PARK [...] | | | LABORATORY | | | [place] | | | SERVICES, | | | [...] | + + + + + | [facility] | [address] | [place] [address] | | | ARASH, ИРИНА | PARK [...] ranges for full anticoagulation: INR for | [facility] | | Venous Thromboembolism (2.0 - 3.0) INR INR | LABORATORY | | for most patients with mech. valves (2.5 - 3.5) INR | ИРИНА ANTOINE | + + + + + + + + | Performing | Address | City/State/Zipcode | Phone Number | | Organization | | | | + + + + + | [facility] | [address] | [place] [address] | | | ИРИНА ANTOINE | TABITHA [...] | + + + + + | [facility] | [address] | [place] [address] | | | ARASH, ИРИНА | TABITHA [...] [facility] | [address] | [place], [place] | | | JULIANN SILVA OF ALEXIS | [address] | [address] | | | TESTS | | | [...] [facility] | [address] | [place], [place] | | | [facility]O POINT OF CARE | [address] | [address] | | | TESTS | | | [...] + + + | [facility] | [address] | [place], [place] | | | R[facility]ARDO POINT OF [facility] | [address] | [address] | | | TESTS | | | [...] | + + + + + | [facility] | [address] | [place] [address] | | | SERVICES, CORE | TABITHA [...] | | | LABORATORY | | | [place]ORE[place] | | | SERVICES, | | | [...] [facility] | [address] | [place] [address] | | | SERVICES, CORE | PARK [...] [facility] | [address] | [place] [address] | | | SERVICES, CORE | PARK [...] | + + + + + | [facility] | [address] | [place] [address] | | | SERVICES, CORE | TABITHA [...] [facility] | [address] | [place], [place] | | | [facility] POINT OF CARE | [address] | [address] | | | TESTS | | | [...] [facility] | [address] | [place], [place] | | | [facility] POINT OF CARE | [address] | [address] | | | TESTS | | | [...] (H) | 70 - 99 mg/dL | [facility] - | | | GLUCOSE, | [...] [facility] | [address] | [place], [place] | | | JULIANN SILVA [facility] | [address] | [address] | | | TESTS | | | [...] [facility] | [address] | [place], [place] | | | JULIANN SILVA OF CARE | [address] | [address] | | | TESTS | | | [...] [facility] | [address] | [place] [address] | | | SERVICES, CORE | PARK [...] | | | LABORATORY | | | [place] | | | SERVICES, | | | [...] | + + + + + | [facility] | [address] | [place] [address] | | | SERVICES, ИРИНА | TABITHA [...] | + + + + + | [facility] | [address] | [place] [address] | | | ARASH, ИРИНА | TABITHA [...] [facility] | [address] | [place] [address] | | | SERVICES, CORE | TABITHA [...] | + + + + + | [facility] | [address] | [place] [address] | | | ARASH, ИРИНА | TABITHA [...] [facility] | [address] | [place], [place] | | | [facility] POINT OF CARE | [address] | [address] | | | TESTS | | | [...] | | | LABORATORY | | | [place] | | | SERVICES, | | | [...] | + + + + + | [facility] | [address] | [place] [address] | | | SERVICES, CORE | TABITHA [...] | | | IMPRESSION | by: JANN JROGENSEN | | OF | | | | [...] DEPT OF | [address] | [place], [place] | | | CARDIOLOGY | [address] | [address] | | + + + + + CAPILLARY BLOOD GLUCOSE (NO CHG), POC (03/30/2017 5:22 PM PDT) + +---------+ + + + | Component | Value | Ref Range | Performed | Pathologist | | | | | At | Signature | + +---------+ + + + | BLOOD | 116 (H) | 70 - 99 mg/dL | [facility] - | | | GLUCOSE, | [...] [facility] | [address] | [place], [place] | | | RICARDO CHIL[facility]IE OF [facility] | [address] | [address] | | | TESTS | | | [...] | | | LABORATORY | | | [place] | | | SERVICES, | | | [...] | + + + + + | [facility] | [address] | [place] [address] | | | SERVICES, CORE | PARK [...] | + + + + + | [facility] | [address] | [place] [address] | | | SERVICES, CORE | PARK [...] rmed At | + +------ + | [facility] | [facility] U DEPT OF | | [facility] Adult Echocardiography | CARDI OLOGY | | Laboratory [address] [place] [address] | | | [place] [address] Pt Name: | | | RON Chaudhary MIKE Study Date/Time 03/30/2017 / 10:44:00 | | | AMMRN: [id number] Most recent | | | prior: 03/19/17 #: [id number] No. previous | | | echos: 3DOB: 1955 61 years Heart | | | Rate: 70 bpmHeight: 68.0 in | | | Blood Pressure: 100/55 mm/HgWeight: 197.0 | | | lb Gender: | | | MBSA: 2.03 m2 Order | | | ID: [id number] Process Safety Manager: Shahab Sutton | | | RDCSSonographer 2: Karly Gayle Referring Provider: Ariana | | | [facility] Location: 11KModalities Performed: 2D, Color flow, | [...] Tn, | | | patient's significant recent NV, we activated the cath lab nurse. Patient | | | history has been [...] Report electronically signed by: | | | [id number] Jordon Neville MD (03/30/2017, 2:04:56 PM) Final | | | | | |Wall Scoring: | | | | | | | | |Report electronically signed by: [id number] Jordon Neville MD (03/30/2017, 2:04:56 PM) | | | | | | | | | | | | Final | | + +------ + + + | Procedure Note | + + | Interface, Cardiology Results - 03/30/2017 2:[address] [facility] | | [facility] Echocardiography Laboratory [address] [place] [address] | | [place], [place] [address] Pt Name: RON Chaudhary | | MIKE Study Date/Time 03/30/2017 / 10:44:00 AMMRN: [id number] Most | | recent prior: 03/19/17 #: [id number] No. previous echos: 3DOB: | | 1955 61 years Heart Rate: 70 bpmHeight: 68.0 in Blood | | Pressure: 100/55 mm/HgWeight: 197.0 lb Gender: MBSA: | | 2.03 m2 Order ID: [id number] Process Safety Manager: Shahab Sutton | | RDCSSonographer 2: Karly Major Provider: [facility] Location: | | 11KModalities Performed: 2D, Color [...] elevated Tn, | | patient's significant recent NV, we activated the cath lab nurse. Patient history has been | | obtained [...] Scoring: Report | | electronically signed by: [id number] Jordon Neville MD (03/30/2017, 2:04:56 PM) Final [...] | | | |Report electronically signed by: [id number] Jordon Neville MD (03/30/2017, 2:04:56 PM) | | | | | | | | Final | + + + + + + + | Performing | Address | City/State/Zipcode | Phone Number | | Organization | | | | + + + + + | [facility] | [address] | [place], [place] | | | CARDIOLOGY | [address] | [address] | | + + + + + CAPILLARY BLOOD GLUCOSE (NO CHG), POC (03/30/2017 9:08 AM PDT) + +---------+ + + + | Component | Value | Ref Range | Performed | Pathologist | | | | | At | Signature | + +---------+ + + + | BLOOD | 110 (H) | 70 - 99 mg/dL | [facility] - | | | GLUCOSE, | [...] [facility] | [address] | [place], [place] | | | JULIANN SILVA OF CARE | [address] | [address] | | | TESTS | | | [...] | + + + + + | [facility] | [address] | [place] [address] | | | SERVICES, CORE | TABITHA [...] [facility] | [address] | [place], [place] | | | [facility] | [address] | [address] | | | TESTS | | | [...] + | [facility] | [address] | [place], [place] | | | CARDIOLOGY | [address] | [address] | | + + + + + [...] | | | LABORATORY | | | [place] | | | SERVICES, | | | [...] [facility] | [address] | [place] [address] | | | SERVICES, CORE | PARK [...] | + + + + + | [facility] | [address] | [place] [address] | | | SERVICES, CORE | PARK [...] | + + + + + | [facility] | [address] | [place] [address] | | | SERVICES, CORE | TABITHA [...] OF | [address] | [place], [place] | | | CARDIOLOGY | [address] | [address] | | + + + + + [...] + + | [facility] | [address] | [place], [place] | | | CARDIOLOGY | [address] | [address] | | + + + + + [...] | + + + + + | [facility] | [address] | [place] [address] | | | SERVICES, CORE | TABITHA [...] | + + + + + | [facility] | [address] | [place] [address] | | | SERVICES, ИРИНА | TABITHA [...] [facility] | [address] | [place] [address] | | | SERVICES, CORE | TABITHA [...] | + + + + + | [facility] | [address] | [place] [address] | | | SERVICES, ИРИНА | TABITHA [...] [facility] | [address] | [place], [place] | | | J[facility]ANN S[facility] | [address] | [address] | | | TESTS | | | [...] [facility] | [address] | [place] [address] | | | SERVICES, CORE | PARK [...] DEPT OF | [address] | [place], [place] | | | CARDIOLOGY | [facility] | [address] | | + + + + + CAPILLARY BLOOD GLUCOSE (NO CHG), POC (03/29/2017 8:16 PM PDT) + +---------+ + + + | Component | Value | Ref Range | Performed | Pathologist | | | | | At | Signature | + +---------+ + + + | BLOOD | 105 (H) | 70 - 99 mg/dL | [facility] - | | | GLUCOSE, | [...] MARIA | [address] | [place], [place] | | | RICARDO POINT OF CARE | [address] | [address] | | | TESTS | | | [...] RODGERS | [address] | [place], [place] | | | JULIANN SILVA OF ALEXIS | [facility] | [address] | | | TESTS | | | [...] | + + + + + | [facility] | [address] | [place] [address] | | | ИРИНА ANTOINE | TABITHA [...] MARIA | [address] | [place], [place] | | | JULIANN SILVA OF [facility] | [address] | [address] | | | TESTS | | | [...] [facility] | [address] | [place] [address] | | | SERVICES, CORE | PARK [...] | | | LABORATORY | | | [place] | | | SERVICES, | | | [...] | + + + + + | [facility] | [address] | [place] [address] | | | SERVICES, CORE | TABITHA [...] (H) | 0.90 - 1.20 INR | [facility] | | | | | | LABORATORY [...] [facility] | [address] | [place] [address] | | | ИРИНА ANTOINE | TABITHA [...] [facility] | [address] | [place] [address] | | | SERVICES, CORE | PARK [...] | + + + + + | [facility] | [address] | [place] [address] | | | SERVICES, CORE | TABITHA [...] | + + + + + | [facility] | [address] [facility] | [place] [address] | | | SERVICES, CORE | TABITHA [...] [facility] | [address] | [place], [place] | | | JULIANN SILVA OF CARE | [address] | [address] | | | TESTS | | | [...] (H) | 70 - 99 mg/dL | [facility] - | | | GLUCOSE, | [...] - [facility] | [address] | [place], [place] | | | RICARDO POINT OF CARE | [address] | [address] | | | TESTS | | | [...] | | | LABORATORY | | | [place] | | | SERVICES, | | | [...] [facility] | [address] | [place] [address] | | | ARASH, ИРИНА | PARK [...] [facility] | [address] | [place] [address] | | | SERVICES, CORE | PARK [...] | | | LABORATORY | | | [place] | | | SERVICES, | | | [...] | + + + + + | [facility] | [address] | [place] [address] | | | ARASH, ИРИНА | TABITHA [...] 93 | 70 - 99 mg/dL | [facility] - | | | GLUCOSE, | [...] RODGERS | [address] | [place], [place] | | | JULIANN SILVA OF CARE | [facility] | [address] | | | TESTS | | | [...] MARIA | [address] | [place], [place] | | | JULIANN SILVA OF [place] | [address] | [address] | | | TESTS | | | [...] [facility] | [address] | [place] [address] | | | ИРИНА ANTOINE | TABITHA [...] | | | LABORATORY | | | [place] | | | SERVICES, | | | [...] | + + + + + | [facility] | [address] [facility] | [place] [address] | | | SERVICES, CORE | TABITHA [...] | + + + + + | [facility] | [address] | [place] [address] | | | SERVICES, ИРИНА | TABITHA [...] ranges for full anticoagulation: INR for | [facility] | | Venous Thromboembolism (2.0 - 3.0) INR INR | LABORATORY | | for most patients with mech. valves (2.5 - 3.5) INR | ИРИНА ANTOINE | + + + + + + + + | Performing | Address | City/State/Zipcode | Phone Number | | Organization | | | | + + + + + | [facility] | [address] [facility] | [place] [address] | | | SERVICES, ИРИНА | TABITHA [...] [facility] | [address] | [place] [address] | | | ARASH, ИРИНА | PARK [...] E[facility]OGIO [facility] | [address] | [place], [place] | | | JULIANN SILVA OF [facility] | [address] | [address] | | | TESTS | | | [...] RODGERS | [address] | [place], [place] | | | RICARDO POINT OF CARE | [address] | [address] | | | TESTS | | | [...] [facility]QU[facility] | [address] | [place], [place] | | | R[facility]ARDO POINT OF CARE | [address] | [address] | | | TESTS | | | [...] (H) | 70 - 99 mg/dL | [facility] - | | | GLUCOSE, | | [...] [facility] | [address] | [place], [place] | | | JULIANN SILVA OF [place] | [address] | [address] | | | TESTS | | | [...] + + | [facility] | [address] [facility] | [place] [address] | | | SERVICES, CORE | TABITHA [...] | + + + + + | [facility] | [address] [facility] | [place] [address] | | | SERVICES, CORE | TABITHA [...] | | | LABORATORY | | | [place] | | | SERVICES, | | | [...] + + | [facility] | [address] [facility] | [place] [address] | | | SERVICES, CORE | PARK [...] | + + + + + | [facility] | [address] [facility] | [place] [address] | | | SERVICES, CORE | TABITHA [...] | + + + + + | [facility] | [address] | [place] [address] | | | ИРИНА ANTOINE | TABITHA [...] RODGERS | [address] | [place], [place] | | | JULIANN SILVA OF [place] | [address] | [address] | | | TESTS | | | [...] MARQU[facility] | [address] | [place], [place] | | | RICARDO POINT OF CARE | [address] | [address] | | | TESTS | | | [...] | | | LABORATORY | | | [place] | | | SERVICES, | | | [...] | + + + + + | [facility] | [address] | [place] [address] | | | SERVICES, ИРИНА | TABITHA [...] MARIA | [address] | [place], [place] | | | JULIANN SILVA OF [place] | [address] | [address] | | | TESTS | | | [...] EULOGIO CALABRESE | [address] | [place] [address] | | | ARASH, ИРИНА | TABITHA [...] | + + + + + | [facility] | [address] | [place] [address] | | | ИРИНА ANTOINE | TABITHA [...] [facility] | [address] | [place] [address] | | | SERVICES, CORE | PARK [...] | | | LABORATORY | | | [place] | | | SERVICES, | | | [...] | + + + + + | [facility] | [address] [facility] | [place] [address] | | | SERVICES, CORE | PARK [...] | + + + + + | [facility] | [address] | [place] [address] | | | ИРИНА ANTOINE | TABITHA [...] | + + + + + | [facility] | [address] | [place] [address] | | | SERVICES, CORE | PARK [...] | [facility] | | considered for monitoring chcf glycemic control in patients with: | LABORATORY [...] | + + + + + | [facility] | [address] | [place] [address] | | | SERVICES, SPECIAL | TABITHA [...] [facility] | [address] | [place] [address] | | | SERVICES, CORE | PARK [...] - [facility] | [address] | [place], [place] | | | RICARDO POINT OF CARE | [address] | [address] | | | TESTS | | | [...] (H) | 70 - 99 mg/dL | [facility] - | | | GLUCOSE, | [...] + + + | E[facility] | [address] | [place], [place] | | | JULIANN SILVA OF [facility] | [address] | [address] | | | TESTS | | | [...] [facility] | [address] | [place] [address] | | | ARASH, ИРИНА | TABITHA [...] | [facility] | | | GRAVITY | [place] performed by | | LABORATORY | | [...] [facility] | [address] | [place] [address] | | | ARASH, CORE | TABITHA [...] | + + + + + | [facility] | [address] | [place] [address] | | | [place] | | | | + + + [...] RODGERS | [address] | [place], [place] | | | RICARDO POINT OF CARE | [address] | [address] | | | TESTS | | | [...] MARIA | [address] | [place], [place] | | | JULIANN SILVA OF ALEX[place] | [facility] | [address] | | | TESTS | | | [...] | + + + + + | [facility] | [address] | [place] [address] | | | ARASH, ИРИНА | TABITHA [...] [facility] | [address] | [place] [address] | | | SERVICES, CORE | TABITHA [...] | + + + + + | [facility] | [address] | [place] [address] | | | SERVICES, CORE | TABITHA [...] [facility] | [address] | [place] [address] | | | SERVICES, CORE | PARK [...] | | | LABORATORY | | | [place] | | | SERVICES, | | | [...] [facility] | [address] | [place] [address] | | | ARASH, ИРИНА | TABITHA [...] | + + + + + | [facility] | [address] | [place] [address] | | | ИРИНА ANTOINE | TABITHA [...] MARIA | [address] | [place], [place] | | | JULIANN SILVA OF CARE | [facility] | [address] | | | TESTS | | | [...] (H) | 70 - 99 mg/dL | [facility] - | | | GLUCOSE, | [...] RODGERS | [address] | [place], [place] | | | RICARDO POINT OF CARE | [address] | [address] | | | TESTS | | | [...] RODGERS | [address] | [place], [place] | | | JULIANN SILVA OF [place] | [address] | [address] | | | TESTS | | | [...] MARIA | [address] | [place], [place] | | | JULIANN SILVA OF [facility] | [address] | [address] | | | TESTS | | | [...] + + | [facility] | [address] [facility] | [place] [address] | | | SERVICES, CORE | PARK [...] [facility] | [address] | [place] [address] | | | SERVICES, CORE | PARK [...] | MIGUELMENDY Enriquez ANA MARIA | [address] [facility] [address] | [place], [place] | | | RIC[facility]O [facility] | [address] | [address] | | | TESTS | | | [...] | | | attempt. Midline lot number [id number]; there was + blood | | | [...] [facility] | [address] | [place], [place] | | | JULIANN SILVA OF CARE | [address] | [address] | | | TESTS | | | [...] MARIA | [address] | [place], [place] | | | RICARDO POINT OF CARE | [address] | [address] | | | TESTS | | | [...] | + + + + + | [facility] | [address] | [place] [address] | | | SERVICES, CORE | TABITHA [...] (H) | 70 - 99 mg/dL | [facility] - | | | GLUCOSE, | | [...] + | E[facility] | [address] | [place], [place] | | | JULIANN SILVA OF [place] | [address] | [address] | | | TESTS | | | [...] MARIA | [address] | [place], [place] | | | JULIANN SILVA OF [place] | [facility] | [address] | | | TESTS | | | [...] (H) | 70 - 99 mg/dL | [facility] - | | | GLUCOSE, | [...] [facility]QU[facility] | [address] | [place], [place] | | | JULIANN SILVA OF CARE | [address] | [address] | | | TESTS | | | [...] RODGERS | [address] | [place], [place] | | | GURINDER SILVA | [facility] | [address] | | | TESTS | | | [...] [facility] | [address] | [place] [address] | | | ИРИНА ANTOINE | TABITHA [...] + + | [facility] | [address] [facility] | [place] [address] | | | ИРИНА ANTOINE | TABITHA [...] [facility] | [address] | [place] [address] | | | SERVICES, CORE | PARK [...] | | | LABORATORY | | | [place] | | | SERVICES, | | | [...] + + | Performing | Address | City/State/[facility] | Phone Number | | Organization | | | | + + + + + | [facility] | [address] | [place] [address] | | | ИРИНА ANTOINE | PARK [...] | + + + + + | [facility] | [address] | [place] [address] | | | ИРИАН ANTOINE | TABITHA [...] (H) | 70 - 99 mg/dL | [facility] - | | | GLUCOSE, | [...] MARIA | [address] | [place], [place] | | | JULIANN SILVA OF [place] | [address] | [address] | | | TESTS | | | [...] RODGERS | [address] | [place], [place] | | | JULIANN SILVA OF [place] | [facility] | [address] | | | TESTS | | | [...] - [facility] | [address] | [place], [place] | | | JULIANN SILVA OF CARE | [facility] | [address] | | | TESTS | | | [...] (H) | 70 - 99 mg/dL | [facility] - | | | GLUCOSE, | [...] MARIA | [address] | [place], [place] | | | JULIANN SILVA OF CARE | [address] | [address] | | | TESTS | | | [...] [facility] | [address] | [place] [address] | | | ARASH, CORE | PARK [...] - [facility] | [address] | [place], [place] | | | RICARDO POINT OF CARE | [address] | [address] | | | TESTS | | | [...] (H) | 70 - 99 mg/dL | [facility] - | | | GLUCOSE, | [...] + + + | [facility] | [address] | [place], [place] | | | JULIANN SILVA OF [facility] | [address] | [address] | | | TESTS | | | [...] | + + + + + | [facility] | [address] [facility] | [place] [address] | | | SERVICES, CORE | TABITHA [...] [facility] | [address] | [place], [place] | | | RICARDO POINT OF CARE | [address] | [address] | | | TESTS | | | [...] [facility] | [address] | [place], [place] | | | RICARDO POINT OF CARE | [address] | [address] | | | TESTS | | | [...] RODGERS | [address] | [place], [place] | | | JULIANN SILVA OF CARE | [address] | [address] | | | TESTS | | | [...] [facility] | [address] | [place], [place] | | | RICARDO POINT OF CARE | [address] | [address] | | | TESTS | | | [...] | [facility] | [address] [facility] [address] | [place], [place] | | | RICARDO POINT OF CARE | [address] | [address] | | | TESTS | | | [...] + + | [facility] | [address] [facility] | [place] [address] | | | SERVICES, CORE | PARK [...] | + + + + + | [facility] | [address] | [place] [address] | | | SERVICES, CORE | TABITHA [...] | + + + + + | [facility] | [address] | [place] [address] | | | SERVICES, CORE | TABITHA [...] | | | LABORATORY | | | [place] | | | SERVICES, | | | [...] [facility] | [address] | [place] [address] | | | SERVICES, CORE | TABITHA [...] | + + + + + | [facility] | [address] | [place] [address] | | | SERVICES, ИРИНА | TABITHA [...] [facility] | [address] | [place], [place] | | | RICARDO POINT OF CARE | [facility] | [address] | | | TESTS | | | [...] - [facility] | [address] | [place], [place] | | | RICARDO POINT OF CARE | [address] | [address] | | | TESTS | | | [...] + + + | [facility] | [address] | [place], [place] | | | RICARDO POINT OF CARE | [address] | [address] | | | TESTS | | | [...] [facility] | [address] | [place], [place] | | | JULIANN SILVA OF CARE | [address] | [address] | | | TESTS | | | [...] - [facility] | [address] | [place], [place] | | | R[facility]ARDO POINT OF CARE | [address] | [address] | | | TESTS | | | [...] RODGERS | [address] | [place], [place] | | | RICARDO POINT OF CARE | [address] | [address] | | | TESTS | | | [...] | + + + + + | [facility] | [address] | [place] [address] | | | ИРИНА ANTOINE | TABITHA [...] (H) | 70 - 99 mg/dL | [facility] - | | | GLUCOSE, | [...] RODGERS | [address] | [place], [place] | | | R[facility]ARDO POINT OF CARE | [address] | [address] | | | TESTS | | | [...] RODGERS | [address] | [place], [place] | | | JULIANN SILVA OF [place] | [address] | [address] | | | TESTS | | | [...] MARIA | [address] | [place], [place] | | | JULIANN SILVA OF CARE | [facility] | [address] | | | TESTS | | | [...] (H) | 70 - 99 mg/dL | [facility] - | | | GLUCOSE, | [...] RODGERS | [address] | [place], [place] | | | RICARDO POINT OF CARE | [address] | [address] | | | TESTS | | | [...] MARIA | [address] | [place], [place] | | | JULIANN SILVA OF [place] | [address] | [address] | | | TESTS | | | [...] | + + + + + | [facility] | [address] | [place] [address] | | | SERVICES, CORE | TABITHA [...] (H) | 70 - 99 mg/dL | [facility] - | | | GLUCOSE, | | [...] RODGERS | [address] | [place], [place] | | | JULIANN SILVA OF CARE | [address] | [address] | | | TESTS | | | [...] [facility] | [address] | [place], [place] | | | RICARDO POINT OF CARE | [address] | [address] | | | TESTS | | | [...] [facility] | [address] | [place], [place] | | | JULIANN SILVA OF [place] | [facility] | [address] | | | TESTS | | | [...] RODGERS | [address] | [place], [place] | | | JULIANN SILVA OF [place] | [address] | [address] | | | TESTS | | | [...] [facility] | [address] | [place], [place] | | | RICARDO POINT OF CARE | [address] | [address] | | | TESTS | | | [...] MARIA | [address] | [place], [place] | | | RICARDO POINT OF [facility] | [facility] | [address] | | | TESTS | | | [...] | + + + + + | [facility] | [address] | [place] [address] | | | SERVICES, | [address] [...] [facility] | [address] | [place] [address] | | | SERVICES, | [address] [...] + + + + | PRODUCT | [id number] | | [facility] | | | UNIT [...] + + + + | EXPIRATION | [id number] | | [facility] | | | DATE [...] + + + + | BLOOD | [id number] | | [facility] | | | PRODUCT [...] [facility] | [address] | [place] [address] | | | SERVICES, | [address] [...] [facility] | [address] | [place] [address] | | | SERVICES, CORE | PARK [...] [facility] | [address] | [place] [address] | | | SERVICES, CORE | TABITHA [...] | + + + + + | [facility] | [address] | [place] [address] | | | SERVICES, CORE | PARK [...] | + + + + + | [facility] | [address] | [place] [address] | | | SERVICES, CORE | PARK [...] + + | [facility] | [address] [facility] | [place] [address] | | | SERVICES, CORE | PARK [...] | | | LABORATORY | | | [place] | | | SERVICES, | | | [...] LABORATORY | [address] | [place] [address] | | | ARASH, ИРИНА | TABITHA [...] (H) | 70 - 99 mg/dL | [facility] - | | | GLUCOSE, | [...] [facility] | [address] | [place], [place] | | | JULIANN SILVA OF [place] | [facility] | [address] | | | TESTS | | | [...] RODGERS | [address] | [place], [place] | | | RICARDO POINT OF CARE | [address] | [address] | | | TESTS | | | [...] [facility] | [address] | [place], [place] | | | JULIANN SILVA OF CARE | [facility] | [address] | | | TESTS | | | [...] [facility] | [address] | [place], [place] | | | JULIANN SILVA OF [place] | [facility] | [address] | | | TESTS | | | [...] RODGERS | [address] | [place], [place] | | | RICARDO POINT OF CARE | [address] | [address] | | | TESTS | | | [...] [facility] | [address] | [place], [place] | | | JULIANN SILVA OF CARE | [facility] | [address] | | | TESTS | | | [...] [facility] | [address] | [place], [place] | | | JULIANN SILVA OF [place] | [address] | [address] | | | TESTS | | | [...] RODGERS | [address] | [place], [place] | | | RICARDO POINT OF CARE | [address] | [address] | | | TESTS | | | [...] MARRANDIAM | [address] | [place], [place] | | | [facility] | [address] | [address] | | | TESTS | | | [...] | | | LABORATORY | | | [place] | | | SERVICES, | | | [...] | + + + + + | [facility] | [address] | [place] [address] | | | SERVICES, ИРИНА | TABITHA [...] MARIA | [address] | [place], [place] | | | JULIANN SILVA OF [place] | [facility] | [address] | | | TESTS | | | [...] (H) | 70 - 99 mg/dL | [facility] - | | | GLUCOSE, | [...] [facility] | [address] | [place], [place] | | | RICARDO POINT OF CARE | [address] | [address] | | | TESTS | | | [...] MARIA | [address] | [place], [place] | | | JULIANN SILVA OF [place] | [address] | [address] | | | TESTS | | | [...] on the 1 attempt. Midline lot number [id number]; there was + | | | blood [...] R[facility] | [address] | [place], [place] | | | JULIANN SILVA OF CARE | [facility] | [address] | | | TESTS | | | [...] MARIA | [address] | [place], [place] | | | JULIANN SILVA OF CARE | [address] | [address] | | | TESTS | | | [...] [facility] | [address] | [place] [address] | | | SERVICES, CORE | PARK [...] MARIA | [address] | [place], [place] | | | JULIANN SILVA OF [place] | [address] | [address] | | | TESTS | | | [...] | + + + + + | [facility] | [address] [facility] | [place] [address] | | | ИРИНА ANTOINE | TABITHA [...] MARQUAM | [address] | [place], [place] | | | HILL, POINT OF CARE | [address] | [address] | | | TESTS | | | [...] (H) | 70 - 99 mg/dL | [facility] - | | | GLUCOSE, | | [...] MARQUAM | [address] | [place], [place] | | | JULIANN SILVA OF ALEXIS | [facility] | [address] | | | TESTS | | | [...] [facility] | [address] | [place], [place] | | | RICARDO POINT OF CARE | [address] | [address] | | | TESTS | | | [...] MARQUAM | [address] | [place], [place] | | | HILL, POINT OF CARE | [address] | [address] | | | TESTS | | | [...] [facility] | [address] | [place] [address] | | | SERVICES, CORE | PARK [...] [facility] | [address] | [place] [address] | | | ARASH, ИРИНА | PARK [...] | + + + + + | [facility] | [address] | [place] [address] | | | SERVICES, CORE | TABITHA [...] | | | LABORATORY | | | [place] | | | SERVICES, | | | [...] | + + + + + | [facility] | [address] | [place] [address] | | | SERVICES, CORE | TABITHA [...] (H) | 70 - 99 mg/dL | [facility] - | | | GLUCOSE, | | [...] [facility] | [address] | [place], [place] | | | RICARDO POINT OF CARE | [address] | [address] | | | TESTS | | | [...] MARQUAM | [address] | [place], [place] | | | RICARDO POINT OF CARE | [address] | [address] | | | TESTS | | | [...] [facility] | [address] | [place], [place] | | | RICARDO POINT OF CARE | [address] | [address] | | | TESTS | | | [...] + | [facility] | [address] | [place], [place] | | | JULIANN SILVA OF ALEXIS | [address] | [address] | | | TESTS | | | [...] ANA MARIA | [address] | [place], [place] | | | JULIANN SILVA OF [facility] | [address] | [address] | | | TESTS | | | [...] | + + + + + | [facility] | [address] | [place] [address] | | | SERVICES, CORE | TABITHA [...] MARQUAM | [address] | [place], [place] | | | JULIANN SILVA OF CARE | [address] | [address] | | | TESTS | | | [...] MARQUAM | [address] | [place], [place] | | | JULIANN SILVA OF CARE | [address] | [address] | | | TESTS | | | [...] [facility] | [address] | [place], [place] | | | JULIANN SILVA OF CARE | [address] | [address] | | | TESTS | | | [...] MARQUAM | [address] | [place], [place] | | | JULIANN SILVA OF CARE | [address] | [address] | | | TESTS | | | [...] MARQUAM | [address] | [place], [place] | | | JULIANN SILVA OF CARE | [address] | [address] | | | TESTS | | | [...] [facility] | [address] | [place], [place] | | | JULIANN SILVA OF CARE | [address] | [address] | | | TESTS | | | [...] MARQUAM | [address] | [place], [place] | | | JULIANN SILVA OF CARE | [address] | [address] | | | TESTS | | | [...] | + + + + + | [facility] | [address] | [place] [address] | | | SERVICES, CORE | TABITHA [...] [facility] | [address] | [place], [place] | | | RICARDO POINT OF CARE | [address] | [address] | | | TESTS | | | [...] MARIA | [address] | [place], [place] | | | RICARDO CHILHOWIE OF [facility] [facility] | [address] | [address] | | | TESTS | | | [...] | + + + + + | [facility] | [address] | [place] [address] | | | SERVICES, CORE | TABITHA [...] (H) | 70 - 99 mg/dL | [facility] - | | | GLUCOSE, | [...] RODGERS | [address] | [place], [place] | | | RICARDO POINT OF CARE | [address] | [address] | | | TESTS | | | [...] the tip in the proximal gastric body. [place] Олег | | | catheter in place. [...] Note | + + | Service Account, [employer] In Interface - 03/20/2017 2:38 PM PDT EXAM: Supine | | frontal view of the abdomen. HISTORY: Study to evaluate feeding tube | | positionCOMPARISON: Chest Xray dated 03/19/2017.FINDINGS AND IMPRESSION:Feeding tube is | | seen in the stomach with the tip in the proximal gastric body.[place] Олег catheter in | | place.Limited evaluation of the lungs as technique was tailored for feeding tube.I have | | personally reviewed the images and, if necessary, edited the report. I agree with the | | report as now presented. | | | |Feeding tube is seen in the stomach with the tip in the proximal gastric body. | |[place] Олег catheter in place. | |Limited evaluation [...] RODGERS | [address] | [place], [place] | | | JULIANN SILVA OF CARE | [facility] | [address] | | | TESTS | | | [...] MARIA | [address] | [place], [place] | | | JULIANN SILVA OF [place]LEX[place] | [address] | [address] | | | TESTS | | | [...] ANA MARIA | [address] | [place], [place] | | | JULIANN SILVA OF CARE | [facility] | [address] | | | TESTS | | | [...] (H) | 70 - 99 mg/dL | [facility] - | | | GLUCOSE, | [...] RODGERS | [address] | [place], [place] | | | JULIANN SILVA OF CARE | [facility] | [address] | | | TESTS | | | [...] MARIA | [address] | [place], [place] | | | JULIANN SILVA OF [place] | [address] | [address] | | | TESTS | | | [...] | + + + + + | [facility] | [address] [facility] | [place] [address] | | | SERVICES, CORE | PARK [...] | + + + + + | [facility] | [address] | [place] [address] | | | SERVICES, CORE | TABITHA [...] | + + + + + | [facility] | [address] | [place] [address] | | | ИРИНА ANTOINE | PARK [...] MARQUAM | [address] | [place], [place] | | | RICARDO POINT OF CARE | [address] | [address] | | | TESTS | | | | + + + + + X-RAY PORTABLE CHEST 1 VIEW (03/20/2017 6:33 AM PDT) + + | Specimen | + + | | + + + + + | Narrative | Performed At | + + + | EXAM: LA CHEST 1 VIEW 03/20/17 04:29:28 HISTORY: ECMO [...] Interface - 03/20/2017 10:12 AM PDT EXAM: LA CHEST 1 | | VIEW 03/20/17 04:29:28 [...] | | + +---------+ + + | [facility] | | | | | [...] - MARRANDIAM | [address] | [place], [place] | | | JULIANN SILVA OF CARE | [address] | [address] | | | TESTS | | | [...] RODGERS | [address] | [place], [place] | | | JULIANN SILVA OF [place] | [address] | [address] | | | TESTS | | | [...] MARQUAM | [address] | [place], [place] | | | JULIANN SILVA OF CARE | [address] | [address] | | | TESTS | | | [...] MARIA | [address] | [place], [place] | | | RICARDO POINT OF [facility] | [address] | [address] | | | TESTS | | | [...] [facility] | [address] | [place] [address] | | | SERVICES, CORE | PARK [...] [facility] | [address] | [place] [address] | | | SERVICES, CORE | TABITHA [...] [facility] | [address] | [place] [address] | | | ARASH, ИРИНА | TABITHA [...] [facility] | [address] | [place] [address] | | | SERVICES, CORE | PARK [...] | | | LABORATORY | | | [place] | | | SERVICES, | | | [...] | + + + + + | [facility] | [address] [facility] | [place] [address] | | | SERVICES, CORE | TABITHA [...] - MARQUAM | [address] | [place], [place] | | | JULIANN SILVA OF CARE | [facility] | [address] | | | TESTS | | | [...] RODGERS | [address] | [place], [place] | | | JULIANN SILVA OF [place]LEX[place] | [address] | [address] | | | TESTS | | | [...] | + + + + + | [facility] | [address] | [place] [address] | | | ARASH CORE | PARK [...] MARQUAM | [address] | [place], [place] | | | JULIANN SILVA OF CARE | [facility] | [address] | | | TESTS | | | [...] (H) | 70 - 99 mg/dL | [facility] - | | | GLUCOSE, | [...] MARIA | [address] | [place], [place] | | | JULIANN SILVA OF [facility] | [address] | [address] | | | TESTS | | | [...] | + + + + + | [facility] | [address] | [place] [address] | | | SERVICES, CORE | TABITHA [...] MARQUAM | [address] | [place], [place] | | | RICARDO POINT OF CARE | [address] | [address] | | | TESTS | | | [...] | + + + + + | [facility] | [address] | [place] [address] | | | SERVICES, ИРИНА | TABITHA [...] MARQUAM | [address] | [place] | | | JULIANN SILVA OF CARE | [facility] | [address] | | | TESTS | | | [...] [facility] | [address] | [place] [address] | | | SERVICES, CORE | PARK [...] | + + + + + | [facility] | [address] [facility] | [place] [address] | | | SERVICES, CORE | TABITHA [...] (H) | 70 - 99 mg/dL | [facility] - | | | GLUCOSE, | [...] + + + | [facility] | [address] | [place], [place] | | | RICARDO POINT OF CARE | [address] | [address] | | | TESTS | | | [...] [facility] | [address] | [place] [address] | | | SERVICES, CORE | TABITHA [...] | + + + + + | [facility] | [address] | [place] [address] | | | SERVICES, CORE | TABITHA [...] | + + + + + | [facility] | [address] | [place] [address] | | | SERVICES, CORE | PARK [...] | + + + + + | [facility] | [address] | [place] [address] | | | SERVICES, CORE | TABITHA [...] MARQUAM | [address] | [place], [place] | | | JULIANN SILVA OF CARE | [address] | [address] | | | TESTS | | | [...] MARRANDIAM | [address] | [place], [place] | | | RICARDO POINT OF CARE | [address] | [address] | | | TESTS | | | [...] (H) | 70 - 99 mg/dL | [facility] - | | | GLUCOSE, | [...] RODGERS | [address] | [place], [place] | | | JULIANN SILVA OF [facility] | [address] | [address] | | | TESTS | | | [...] | + + + + + | [facility] | [address] [facility] | [place] [address] | | | SERVICES, CORE | PARK [...] DEPT OF | [address] | [place], [place] | | | CARDIOLOGY | [facility] | [address] | | + + + + + CAPILLARY BLOOD GLUCOSE (NO CHG), POC (03/19/2017 1:05 PM PDT) + +---------+ + + + | Component | Value | Ref Range | Performed | Pathologist | | | | | At | Signature | + +---------+ + + + | BLOOD | 137 (H) | 70 - 99 mg/dL | [facility] - | | | GLUCOSE, | [...] R[facility]GERS | [address] | [place], [place] | | | RICARDO POINT OF CARE | [address] | [address] | | | TESTS | | | | + + + + + SB-WY-MGU-HBPOC RT (03/19/2017 1:04 PM PDT) + + [...] OHMENDY [facility] | [address] | [place], [place] | | | RICARDO CHILHOWIE OF [facility] | [address] | [address] | | | TESTS | | | [...] + + + + | PRODUCT | [id number] | | [facility] | | | UNIT [...] + + + + | EXPIRATION | [id number] | | [facility] | | | DATE [...] + + + + | BLOOD | [id number] | | [facility] | | | PRODUCT [...] LABORATORY | [address] | [place] [address] | | | SERVICES, | [address] [...] + + + + | PRODUCT | [id number] | | [facility] | | | UNIT [...] + + + + | EXPIRATION | [id number] | | [facility] | | | DATE [...] + + + + | BLOOD | [id number] | | [facility] | | | PRODUCT [...] | + + + + + | [facility] | [address] | [place] [address] | | | SERVICES, | [address] [...] + + + + | PRODUCT | [id number] | | [facility] | | | UNIT [...] + + + + | EXPIRATION | [id number] | | [facility] | | | DATE [...] + + + + | BLOOD | [id number] | | [facility] | | | PRODUCT [...] | + + + + + | [facility] | [address] | [place] [address] | | | SERVICES, | [address] [...] + + + + | PRODUCT | [id number] | | [facility] | | | UNIT [...] + + + + | EXPIRATION | [id number] | | [facility] | | | DATE [...] + + + + | BLOOD | [id number] | | [facility] | | | PRODUCT [...] | + + + + + | [facility] | [address] | [place] [address] | | | SERVICES, | [address] [...] [facility] | [address] | [place] [address] | | | SERVICES, ИРИНА | TABITHA [...] | | | LABORATORY | | | [place] | | | SERVICES, | | | [...] | + + + + + | [facility] | [address] | [place] [address] | | | SERVICES, CORE | TABITHA [...] | + + + + + | [facility] | [address] | [place] [address] | | | SERVICES, CORE | TABITHA [...] | + + + + + | [facility] | [address] | [place] [address] | | | SERVICES, CORE | [address] | | | + + + + + LA ECMO REV (EXT)AND/OR DECANNULATION (03/19/2017 12:36 PM [...] Siria | | | GISELL Preston PhD [facility] [address] [id number] [place], | | | [place] [address] | | + + + ABG-FULL ABL, [...] MARIA | [address] | [place], [place] | | | JULIANN SILVA OF CARE | [address] | [address] | | | TESTS | | | [...] MARQUAM | [address] | [place], [place] | | | JULIANN SILVA OF [facility] | [address] | [address] | | | TESTS | | | | + + + + + CZ-HQ-AGA-HB,POC RT (03/19/2017 10:24 AM PDT) + + [...] RODGERS | [address] | [place], [place] | | | RICARDO POINT OF CARE | [address] | [address] | | | TESTS | | | [...] MARIA | [address] | [place], [place] | | | JULIANN SILVA OF ALEXIS | [facility] | [address] | | | TESTS | | | | + + + + + UX-YH-BQZ-HB,POC RT (03/19/2017 10:06 AM PDT) + + [...] MARQUAM | [address] | [place], [place] | | | JULIANN SILVA OF CARE | [address] | [address] | | | TESTS | | | | + + + + + PI-TZ-ESW-HB,POC RT (03/19/2017 9:51 AM PDT) + + [...] RODGERS | [address] | [place], [place] | | | JULIANN SILVA OF ALEXIS | [address] | [address] | | | TESTS | | | [...] + + + + | PRODUCT | [id number] | | [facility] | | | UNIT [...] + + + + | EXPIRATION | [id number] | | [facility] | | | DATE [...] + + + + | BLOOD | [id number] | | [facility] | | | PRODUCT [...] | + + + + + | [facility] | [address] | [place] [address] | | | SERVICES, | [address] [...] + + + + | PRODUCT | [id number] | | [facility] | | | UNIT [...] + + + + | EXPIRATION | [id number] | | [facility] | | | DATE [...] + + + + | BLOOD | [id number] | | [facility] | | | PRODUCT [...] [facility] | [address] | [place] [address] | | | SERVICES, | [address] [...] + + + + | PRODUCT | [id number] | | [facility] | | | UNIT [...] + + + + | EXPIRATION | [id number] | | [facility] | | | DATE [...] + + + + | BLOOD | [id number] | | [facility] | | | PRODUCT [...] [facility] | [address] | [place] [address] | | | SERVICES, | [address] [...] + + + + | PRODUCT | [id number] | | [facility] | | | UNIT [...] + + + + | EXPIRATION | [id number] | | [facility] | | | DATE [...] + + + + | BLOOD | [id number] | | [facility] | | | PRODUCT [...] + + | [facility] | [address] [facility] | [place] [address] | | | SERVICES, | [address] | | | | TRANSFUSION MEDICINE | | | | + + + + + X-RAY PORTABLE CHEST 1 VIEW (03/19/2017 9:13 AM PDT) + + | Specimen | + + | | + + + + + | Narrative | Performed At | + + + | EXAM: LA CHEST 1 VIEW HISTORY: ECMO. Evaluate cannula | [facility] | | placement. COMPARISON: Yesterday FINDINGS: Endotracheal | RADIOLOGY VOICE | | tube, [place]-Олег catheter and enteric tube remain in place. [...] Interface - 03/19/2017 9:17 AM PDT EXAM: LA CHEST 1 | | VIEW HISTORY: ECMO. Evaluate cannula placement.COMPARISON: YesterdayFINDINGS: | | Endotracheal tube, [place]-Олег catheter and enteric tube remain in place. [...] RODGERS | [address] | [place], [place] | | | JULIANN SILVA OF CARE | [facility] | [address] | | | TESTS | | | [...] MARQUAM | [address] | [place], [place] | | | JULIANN SILVA OF CARE | [address] | [address] | | | TESTS | | | [...] | + + + + + | [facility] | [address] | [place] [address] | | | ИРИНА ANTOINE | TABITHA [...] (H) | 70 - 99 mg/dL | [facility] - | | | GLUCOSE, | [...] MARQUAM | [address] | [place], [place] | | | RICARDO POINT OF CARE | [address] | [address] | | | TESTS | | | [...] RODGERS | [address] | [place], [place] | | | JULIANN SILVA OF ALEX[place] | [facility] | [address] | | | TESTS | | | [...] BLUAM | [address] | [place], [place] | | | JULIANN SILVA OF CARE | [facility] | [address] | | | TESTS | | | [...] (H) | 70 - 99 mg/dL | [facility] - | | | GLUCOSE, | [...] MARIA | [address] | [place], [place] | | | JULIANN SILVA OF [facility] | [address] | [address] | | | TESTS | | | [...] | + + + + + | [facility] | [address] | [place] [address] | | | SERVICES, CORE | TABITHA [...] MARQUAM | [address] | [place], [place] | | | RICARDO POINT OF CARE | [address] | [address] | | | TESTS | | | [...] MARRANDIAM | [address] | [place], [place] | | | RICARDO POINT OF CARE | [address] | [address] | | | TESTS | | | [...] RODGERS | [address] | [place], [place] | | | JULIANN SILVA OF ALEX[place] | [address] | [address] | | | TESTS | | | [...] [facility] | [address] | [place] [address] | | | SERVICES, CORE | PARK [...] RODGERS | [address] | [place], [place] | | | JULIANN SILVA OF [facility] | [facility] | [address] | | | TESTS | | | [...] | + + + + + | [facility] | [address] | [place] [address] | | | SERVICES, CORE | TABITHA [...] | + + + + + | [facility] | [address] | [place] [address] | | | SERVICES, CORE | TABITHA [...] | + + + + + | [facility] | [address] | [place] [address] | | | SERVICES, CORE | PARK [...] [facility] | [address] | [place] [address] | | | SERVICES, CORE | PARK [...] [facility] | [address] | [place] [address] | | | SERVICES, CORE | PARK [...] [facility] | [address] | [place] [address] | | | SERVICES, CORE | PARK [...] | | | LABORATORY | | | [place] | | | SERVICES, | | | [...] + + | Performing | Address | City/State/[facility] | Phone Number | | Organization | | | | + + + + + | [facility] | [address] [facility] | [place] [address] | | | SERVICES, CORE | PARK [...] [facility] | [address] | [place] [address] | | | SERVICES, CORE | PARK [...] | + + + + + | [facility] | [address] | [place] [address] | | | SERVICES, CORE | TABITHA [...] MARQUAM | [address] | [place], [place] | | | RICARDO POINT OF CARE | [address] | [address] | | | TESTS | | | [...] | + + + + + | [facility] | [address] [facility] | [place] [address] | | | SERVICES, CORE | PARK [...] MARQUAM | [address] | [place], [place] | | | JULIANN SILVA OF CARE | [address] | [address] | | | TESTS | | | [...] - BLUAM | [address] | [place], [place] | | | RICARDO POINT OF CARE | [address] | [address] | | | TESTS | | | [...] | + + + + + | [facility] | [address] | [place] [address] | | | SERVICES, CORE | TABITHA [...] (H) | 70 - 99 mg/dL | [facility] - | | | GLUCOSE, | | [...] MARIA | [address] | [place], [place] | | | JULIANN SILVA OF ALEX[place] | [facility] | [address] | | | TESTS | | | [...] MARIA | [address] | [place], [place] | | | JULIANN SILVA OF ALEX[place] | [facility] | [address] | | | TESTS | | | [...] (H) | 70 - 99 mg/dL | [facility] - | | | GLUCOSE, | [...] RODGERS | [address] | [place], [place] | | | JULIANN SILVA OF CARE | [address] | [address] | | | TESTS | | | [...] [facility] | [address] | [place] [address] | | | SERVICES, CORE | PARK [...] | + + + + + | [facility] | [address] | [place] [address] | | | SERVICES, CORE | PARK [...] MARQUAM | [address] | [place], [place] | | | JULIANN SILVA OF CARE | [address] | [address] | | | TESTS | | | [...] [facility] | [address] | [place] [address] | | | ARASH, ИРИНА | TABITHA [...] (H) | 70 - 99 mg/dL | [facility] - | | | GLUCOSE, | [...] MARQUAM | [address] | [place], [place] | | | JULIANN SILVA OF ALEXIS | [facility] | [address] | | | TESTS | | | [...] RODGERS | [address] | [place], [place] | | | RICARDO POINT OF CARE | [address] | [address] | | | TESTS | | | [...] [facility] | [address] | [place] [address] | | | SERVICES, CORE | TABITHA [...] + | [facility] | [address] | [place] [address] | | | ИРИНА ANTOINE | PARK [...] - MARQUAM | [address] | [place], [place] | | | RICARDO POINT OF CARE | [address] | [address] | | | TESTS | | | [...] (H) | 70 - 99 mg/dL | [facility] - | | | GLUCOSE, | [...] + + + + + | [facility] | [address] | [place], [place] | | | JLUIANN SILVA OF [facility] | [address] | [address] | | | TESTS | | | [...] | + + + + + | [facility] | [address] [facility] | [place] [address] | | | SERVICES, CORE | PARK [...] [facility] | [address] | [place] [address] | | | SERVICES, CORE | TABITHA [...] [facility] | [address] | [place] [address] | | | SERVICES, CORE | PARK [...] [facility] | [address] | [place] [address] | | | ИРИНА ANTOINE | TABITHA [...] | | | LABORATORY | | | [place] | | | SERVICES, | | | [...] | + + + + + | [facility] | [address] | [place] [address] | | | SERVICES, CORE | PARK [...] | + + + + + | [facility] | [address] | [place] [address] | | | SERVICES, CORE | TABITHA [...] [facility] | [address] | [place] [address] | | | ИРИНА ANTOINE | TABITHA [...] | + + + + + | [facility] | [address] | [place] [address] | | | SERVICES, CORE | TABITHA [...] (H) | 70 - 99 mg/dL | [facility] - | | | GLUCOSE, | [...] + + + | [facility] | [address] | [place], [place] | | | JULIANN SILVA OF [facility] | [address] | [address] | | | TESTS | | | [...] MARQUAM | [address] | [place], [place] | | | JULIANN SILVA OF [place] | [facility] | [address] | | | TESTS | | | [...] | + + + + + | [facility] | [address] | [place] [address] | | | SERVICES, CORE | TABITHA [...] (H) | 70 - 99 mg/dL | [facility] - | | | GLUCOSE, | [...] RODGERS | [address] | [place], [place] | | | RICARDO POINT OF CARE | [address] | [address] | | | TESTS | | | [...] | + + + + + | [facility] | [address] | [place] [address] | | | SERVICES, ИРИНА | TABITHA [...] [facility] | [address] | [place] [address] | | | SERVICES, CORE | PARK [...] + | [facility] | [address] | [place] [address] | | | [place] | | | | + + + [...] RODGERS | [address] | [place] | | | JULIANN SILVA OF CARE | [address] | [address] | | | TESTS | | | [...] [facility] | [address] | [place], [place] | | | [place], POINT OF CARE | [address] | [address] | | | TESTS | | | [...] [facility] | [address] | [place] [address] | | | SERVICES, CORE | PARK [...] | + + + + + | [facility] | [address] | [place] [address] | | | SERVICES, CORE | TABITHA [...] (H) | 70 - 99 mg/dL | [facility] - | | | GLUCOSE, | [...] [facility] | [address] | [place], [place] | | | JULIANN SILVA OF [place]LEX[place] | [address] | [address] | | | TESTS | | | [...] [facility] | [address] | [place], [place] | | | JULIANN SILVA OF CARE | [address] | [address] | | | TESTS | | | | + + + + + X-RAY PORTABLE CHEST 1 VIEW (03/18/2017 6:05 AM PDT) + + | Specimen | + + | | + + + + + | Narrative | Performed At | + + + | EXAM: LA CHEST 1 VIEW HISTORY: ECMO. Evaluate cannula placement. | [facility] | | COMPARISON: Yesterday FINDINGS: Endotracheal tube tip is | RADIOLOGY VOICE | | 2.5 cm above the jefferson. Enteric tube tip in the stomach. [facility] [place] [facility] | RECOGNITION | | catheter tip projects [...] Note | + + | Service Account, HiperScan In Interface - 03/18/2017 8:39 AM PDT EXAM: LA CHEST 1 | | VIEW HISTORY: ECMO. Evaluate cannula placement.COMPARISON: YesterdayFINDINGS: | | Endotracheal tube tip is 2.5 cm above the jefferson. Enteric tube tip in the stomach. | | [employer] [place] [employer] catheter tip projects in the main pulmonary [...] [facility] | [address] | [place], [place] | | | JULIANN SILVA OF CARE | [facility] | [address] | | | TESTS | | | [...] (H) | 60 - 99 mg/dL | [facility] - | | | GLUCOSE, | [...] [facility] | [address] | [place], [place] | | | RICARDO POINT OF CARE | [facility] | [address] | | | TESTS | | | [...] | + + + + + | [facility] | [address] [facility] | [place] [address] | | | SERVICES, CORE | TABITHA [...] [facility] | [address] | [place], [place] | | | [place] POINT OF CARE | [address] | [address] | | | TESTS | | | [...] [facility] | [address] | [place], [place] | | | JULIANN SILVA OF CARE | [address] | [address] | | | TESTS | | | [...] | + + + + + | [facility] | [address] | [place] [address] | | | SERVICES, | [address] [...] [facility] | [address] | [place] [address] | | | SERVICES, | [address] [...] + + + + | PRODUCT | [id number] | | [facility] | | | UNIT [...] + + + + | EXPIRATION | [id number] | | [facility] | | | DATE [...] + + + + | BLOOD | [id number] | | [facility] | | | PRODUCT [...] | + + + + + | [facility] | [address] | [place] [address] | | | ARASH | [address] [...] (A) | 5 - 10 Minutes | [facility] - | | | CITRATED | | | [facility] | | | | | | JULIANN SILVA | | | | | | OF CARE | | | | | | TESTS | | + + + + + + | K - | 3.1 (A) | 1 - 3 Minutes | [facility] - | | | CITRATED | [...] [facility] | [address] | [place], [place] | | | JULIANN SILVA OF [place] | [address] | [address] | | | TESTS | | | [...] [facility] | [address] | [place] [address] | | | SERVICES, CORE | PARK [...] [facility] | [address] | [place] [address] | | | SERVICES, CORE | PARK [...] [facility] | [address] | [place] [address] | | | SERVICES, CORE | PARK [...] [facility] | [address] | [place] [address] | | | SERVICES, CORE | PARK [...] | | | LABORATORY | | | [place] | | | SERVICES, | | | [...] the MDRD equation recommended by the | [facility] | | National Kidney Disease Education [...] | + + + + + | [facility] | [address] | [place] [address] | | | SERVICES, CORE | TABITHA [...] | + + + + + | [facility] | [address] | [place] [address] | | | SERVICES, CORE | [address] | | | + + + + + MAGNESIUM, PLASMA (03/18/2017 1:19 AM PDT) + +-------+ + + + | Component | Value | Ref Range | Performed | Pathologist | | | | | At | Signature | + +-------+ + + + | MAGNESIUM,P | 2.3 | 1.8 - 2.5 mg/dL | [facility] | | | DENISEMA | | | [...] | + + + + + | [facility] | [address] | [place] [address] | | | ARASH, ИРИНА | PARK [...] [facility] | [address] | [place] [address] | | | ARASH, ИРИНА | TABITHA [...] (H) | 60 - 99 mg/dL | [facility] - | | | GLUCOSE, | [...] [facility] | [address] | [place], [place] | | | JULIANN SILVA OF [place] | [address] | [address] | | | TESTS | | | [...] | + + + + + | [facility] | [address] | [place] [address] | | | SERVICES, ИРИНА | TABITHA [...] [facility] | [address] | [place] [address] | | | SERVICES, ИРИНА | TABITHA [...] (H) | 60 - 99 mg/dL | [facility] - | | | GLUCOSE, | [...] [facility] | [address] | [place], [place] | | | JULIANN SILVA OF [place] | [facility] | [address] | | | TESTS | | | [...] [facility] | [address] | [place], [place] | | | RICARDO POINT OF CARE | [address] | [address] | | | TESTS | | | [...] MARIA | [address] | [place], [place] | | | JULIANN SILVA OF [facility] | [address] | [address] | | | TESTS | | | [...] (H) | 60 - 99 mg/dL | [facility] - | | | GLUCOSE, | [...] MARIA | [address] | [place], [place] | | | JULIANN SILVA OF [facility] | [facility] | [address] | | | TESTS | | | [...] | + + + + + | [facility] | [address] | [place] [address] | | | SERVICES, CORE | TABITHA [...] [facility] | [address] | [place], [place] | | | JULIANN SILVA OF CARE | [address] | [address] | | | TESTS | | | [...] [facility] | [address] | [place] [address] | | | SERVICES, CORE | PARK [...] [facility] | [address] | [place] [address] | | | ИРИНА ANTOINE | [address] | | | + [...] [facility] | [address] | [place] [address] | | | SERVICES, CORE | TABITHA [...] | + + + + + | [facility] | [address] | [place] [address] | | | ИРИНА ANTOINE | TABITHA [...] [facility] | [address] | [place] [address] | | | SERVICES, CORE | TABITHA [...] + | [facility] | [address] [facility] [address] | [place], [place] | | | RICARDO POINT OF CARE | [address] | [address] | | | TESTS | | | [...] + + + | [facility] | [address] | [place], [place] | | | JULIANN SILVA OF CARE | [address] | [address] | | | TESTS | | | [...] [facility] | [address] | [place] [address] | | | SERVICES, CORE | [address] [...] MARIA | [address] | [place], [place] | | | JULIANN SILVA OF CARE | [address] | [address] | | | TESTS | | | [...] (H) | 60 - 99 mg/dL | [facility] - | | | GLUCOSE, | [...] [facility] | [address] | [place], [place] | | | JULIANN SILVA OF [place] | [address] | [address] | | | TESTS | | | [...] + + + + | PRODUCT | [id number] | | [facility] | | | UNIT [...] + + + + | EXPIRATION | [id number] | | [facility] | | | DATE [...] + + + + | BLOOD | [id number] | | [facility] | | | PRODUCT [...] | + + + + + | [facility] | [address] | [place] [address] | | | SERVICES, | [address] [...] + + + + | PRODUCT | [id number] | | [facility] | | | UNIT [...] + + + + | EXPIRATION | [id number] | | [facility] | | | DATE [...] + + + + | BLOOD | [id number] | | [facility] | | | PRODUCT [...] [facility] | [address] | [place] [address] | | | SERVICES, | [address] [...] MARIA | [address] | [place], [place] | | | RICARDO POINT OF CARE | [facility] | [address] | | | TESTS | | | [...] [facility] | [address] | [place] [address] | | | SERVICES, ИРИНА | TABITHA [...] | + + + + + | [facility] | [address] | [place] [address] | | | SERVICES, CORE | PARK [...] + + | [facility] | [address] [facility] | [place] [address] | | | SERVICES, CORE | TABITHA [...] [facility] | [address] | [place] [address] | | | SERVICES, CORE | TABITHA [...] | | | LABORATORY | | | [place]ORE[place] | | | SERVICES, | | | [...] 11 | 4 - 11 mmol/L | [facility] | | | GAP(ALB | | | [...] | + + + + + | [facility] | [address] [facility] | [place] [address] | | | ИРИНА ANTOINE | TABITHA [...] [facility] | [address] | [place] [address] | | | ИРИНА ANTOINE | [address] [...] | + + + + + | [facility] | [address] | [place] [address] | | | SERVICES, ИРИНА | TABITHA [...] [facility] | [address] | [place] [address] | | | SERVICES, CORE | TABITHA [...] [facility] | [address] | [place], [place] | | | IRCARDO POINT OF [facility] | [address] | [address] | | | TESTS | | | [...] | + + + + + | [facility] | [address] | [place] [address] | | | SERVICES, ИРИНА | TABITHA [...] [facility] | [address] | [place] | | | JULIANN SILVA OF [place] | [address] | [address] | | | TESTS | | | | + + + + + [facility] DUPLEX LOWER EXTREMITY RT (03/17/2017 12:31 [...] Note | + + | Service Account, HiperScan In Interface - 03/17/2017 6:18 PM PDT [...] + + | Performing | Address | City/State/[facility] | Phone Number | | Organization [...] Note | + + | Service Account, HiperScan In Interface - 03/17/2017 6:17 PM PDT [...] [facility] | [address] | [place], [place] | | | JULIANN SILVA OF [place] | [facility] | [address] | | | TESTS | | | [...] [facility] | [address] | [place] [address] | | | SERVICES, CORE | PARK [...] Performed At | + + -------+ | [facility] | [facility] DE PT OF | | [facility] Adult Echocardiography | CARDIOLOG Y | | Laboratory [address] [place] [address], | | | [place] [address] Pt Name: | | | RON MCKEON Study Date/Time 03/17/2017 / 10:30:26 | | | AMMRN: [id number] Most recent | | | prior: 03/15/2017Acc #: [id number] No. | | | previous echos: 1DOB: 1955 61 years Heart | | | Rate: 139 bpmHeight: 69.0 | | | in Blood Pressure: 133/83 | | | mm/HgWeight: 258.0 | | | lb Gender: | | | MBSA: 2.30 m2 Order | | | ID: [id number] Process Safety Manager: Mauri Domingo LORENZO | | | [...] | | pre-diabetes who is transferred to [facility] with cardiogenic shock in the | [...] | | | Report electronically signed by: [id number] Jen Ovalle MD, PhD | | | (03/17/2017, 1:53:40 PM) Final | | | | | |Report electronically signed by: [id number] Jen Ovalle MD, PhD (03/17/2017, | | |1:53:40 PM) | | | | | | | | | | | | Final | | + + -------+ + + | Procedure Note | + + | Interface, Cardiology Results - 03/17/2017 1:53 PM [facility] [place] | | [facility] Echocardiography Laboratory [address] [place] [address] | | [place], [place] [address] Pt Name: RON Chaudhary | | MIKE Study Date/Time 03/17/2017 / 10:30:26 AMMRN: [id number] Most | | recent prior: 03/15/2017Acc #: [id number] No. previous echos: 1DOB: | | 1955 61 years Heart Rate: 139 bpmHeight: 69.0 in Blood | | Pressure: 133/83 mm/HgWeight: 258.0 lb Gender: MBSA: | | 2.30 m2 Order ID: [id number] Process Safety Manager: Mauri Domingo | | RDCSReferring Provider: Mellisa HajiPatient Location: 12KModalities Performed: | | Limited 2D, Color Doppler and Spectral Doppler Limited.Study Quality: Fair.Exam | | Indication: Heart failure; ECMO; s/p STEMIHistory: 61 year old male with a past medical | | history significant for hypertension, hyperlipidemia, ongoing tobacco use and | | pre-diabetes who is transferred to [facility] with cardiogenic shock in the setting [...] | | Scoring: Report electronically signed by: [id number] Jen Ovalle MD, PhD (03/17/2017, | | [...] | | | |Report electronically signed by: [id number] Jen Ovalle MD, PhD (03/17/2017, | |1:53:40 PM) | | | | | | | | Final | + + + + + + + | Performing | Address | City/State/Zipcode | Phone Number | | Organization | | | | + + + + + | [facility] | [address] | [place], [place] | | | CARDIOLOGY | [address] | [address] | | + + + + + [...] [facility] | [address] | [place], [place] | | | JULIANN SILVA OF CARE | [address] | [address] | | | TESTS | | | [...] - [facility] | [address] | [place], [place] | | | RICARDO POINT OF CARE | [facility] | [address] | | | TESTS | | | [...] + + | [facility] | [address] [facility] | [place] [address] | | | SERVICES, CORE | PARK [...] | + + + + + | [facility] | [address] | [place] [address] | | | SERVICES, CORE | TABITHA [...] [facility] | [address] | [place] [address] | | | SERVICES, CORE | TABITHA [...] [facility] | [address] | [place], [place] | | | JULIANN SILVA OF CARE | [address] | [address] | | | TESTS | | | [...] [facility] | [address] | [place], [place] | | | RICARDO POINT OF CARE | [address] | [address] | | | TESTS | | | [...] [facility] | [address] | [place], [place] | | | JULIANN SILVA OF CARE | [address] | [address] | | | TESTS | | | [...] [facility] | [address] | [place] [address] | | | SERVICES, CORE | PARK [...] | + + + + + | [facility] | [address] | [place] [address] | | | SERVICES, CORE | [address] | | | + + + + + X-RAY PORTABLE CHEST 1 VIEW (03/17/2017 5:37 AM PDT) + + | Specimen | + + | | + + + + + | Narrative | Performed At | + + + | EXAM: LA CHEST 1 VIEW 03/17/17 04:53:29 HISTORY: On [...] Note | + + | Service Account, HiperScan In Interface - 03/17/2017 9:44 AM PDT EXAM: LA CHEST 1 | | VIEW 03/17/17 04:53:29 [...] - [facility] | [address] | [place], [place] | | | RICARDO POINT OF [facility] | [facility] | [address] | | | TESTS | | | [...] [facility] | [address] | [place] [address] | | | SERVICES, CORE | PARK [...] | | | LABORATORY | | | [place]ORE[place] | | | SERVICES, | | | [...] + + | [facility] | [address] [facility] | [place] [address] | | | [facility] | [address] | | | + [...] | + + + + + | [facility] | [address] | [place] [address] | | | SERVICES, CORE | TABITHA [...] (H) | 60 - 99 mg/dL | [facility] - | | | GLUCOSE, | | [...] [facility] | [address] | [place], [place] | | | JULIANN SILVA OF CARE | [address] | [address] | | | TESTS | | | [...] | + + + + + | [facility] | [address] | [place] [address] | | | SERVICES, CORE | PARK [...] | 56 (L) | >300 mmHg | [facility] | | | RATIO | | | [...] | + + + + + | [facility] | [address] | [place] [address] | | | SERVICES, CORE | TABITHA [...] | + + + + + | [facility] | [address] [facility] | [place] [address] | | | ИРИНА ANTOINE | TABITHA [...] | + + + + + | [facility] | [address] | [place] [address] | | | SERVICES, CORE | TABITHA [...] [facility] | [address] | [place] [address] | | | SERVICES, CORE | PARK [...] [facility] | [address] | [place] [address] | | | SERVICES, ИРИНА | PARK [...] | + + + + + | [facility] | [address] | [place] [address] | | | SERVICES, CORE | TABITHA [...] | + + + + + | [facility] | [address] [facility] | [place] [address] | | | SERVICES, ИРИНА | TABITHA [...] | + + + + + | [facility] | [address] | [place] [address] | | | ARASH, CORE | PARK [...] | + + + + + | [facility] | [address] | [place] [address] | | | SERVICES, CORE | TABITHA [...] + | [facility] | [address] [facility] | [place], [place] | | | CARDIOLOGY | [address] | [address] | | + + + + + LD-PN-NDU-HB,POC RT (03/17/2017 12:44 AM PDT) + + [...] [facility] | [address] | [place], [place] | | | JULIANN SILVA OF CARE | [address] | [address] | | | TESTS | | | [...] [facility] | [address] | [place], [place] | | | JULIANN SILVA OF [place] | [address] | [address] | | | TESTS | | | [...] [facility] | [address] | [place], [place] | | | RICARDO POINT OF CARE | [address] | [address] | | | TESTS | | | [...] [facility] | [address] | [place] [address] | | | SERVICES, CORE | PARK [...] [facility] | [address] | [place], [place] | | | RICARDO POINT OF CARE | [address] | [address] | | | TESTS | | | [...] [facility] | [address] | [place], [place] | | | JULIANN SILVA OF CARE | [address] | [address] | | | TESTS | | | [...] | + + + + + | [facility] | [address] | [place] [address] | | | ИРИНА ANTOINE | TABITHA [...] [facility] | [address] | [place], [place] | | | CHRISTIE SILVA CARE | [facility] | [address] | | | TESTS | | | [...] | + + + + + | [facility] | [address] | [place] [address] | | | SERVICES, CORE | TABITHA [...] (H) | 60 - 99 mg/dL | [facility] - | | | GLUCOSE, | [...] + + + | [facility] | [address] | [place], [place] | | | RICARDO POINT OF CARE | [address] | [address] | | | TESTS | | | [...] [facility] | [address] | [place] | | | RICARDO POINT OF CARE | [facility] | [address] | | | TESTS | | | [...] | pause verifies correct patient, procedure, equipment, business support liaison | | | and site/side marked as [...] | + + + + + | [facility] | [address] | [place] [address] | | | SERVICES, CORE | TABITHA [...] [facility] | [address] | [place] [address] | | | SERVICES, CORE | TABITHA [...] | + + + + + | [facility] | [address] [facility] | [place] [address] | | | SERVICES, CORE | [address]ARK [...] [facility] | [address] | [place] [address] | | | SERVICES, CORE | PARK [...] | | | LABORATORY | | | [place]ORE[place] | | | SERVICES, | | | [...] | + + + + + | [facility] | [address] | [place] [address] | | | ИРИНА ANTOINE | TABITHA [...] [facility] | [address] | [place] [address] | | | SERVICES, CORE | PARK [...] [facility] | [address] | [place] [address] | | | SERVICES, CORE | TABITHA [...] [facility] | [address] | [place], [place] | | | JULIANN SILVA OF CARE | [address] | [address] | | | TESTS | | | [...] - [facility] | [address] | [place], [place] | | | RICARDO POINT OF CARE | [address] | [address] | | | TESTS | | | [...] + + + | [facility] | [address] | [place], [place] | | | RICARDO POINT OF CARE | [address] | [address] | | | TESTS | | | [...] [facility] | [address] | [place], [place] | | | RICARDO POINT OF CARE | [address] | [address] | | | TESTS | | | [...] [facility] | [address] | [place] [address] | | | ИРИНА ANTOINE | TABITHA [...] | | | LABORATORY | | | [place]ORE[place] | | | SERVICES, | | | [...] | + + + + + | [facility] | [address] | [place] [address] | | | SERVICES, CORE | TABITHA [...] [facility] | [address] | [place], [place] | | | RICARDO POINT OF CARE | [address] | [address] | | | TESTS | | | [...] [facility] | [address] | [place] [address] | | | ИРИНА ANTOINE | TABITHA [...] [facility] | [address] | [place], [place] | | | JULIANN SILVA OF ALEXIS | [address] | [address] | | | TESTS | | | | + + + + + OPERATION RECORD (03/16/2017 9:30 AM PDT) + + | Procedure Note | + + | Dale Mak MD - 03/15/2017 3:42 PM PDT Date of Service: 03/15/2017 Attending | | Surgeon:Ron Powell MD. Biological Chemist(s):Dale Mak MD. | | Preoperative Diagnoses: 1.Cardiogenic [...] The | | patient was transferred to [facility] for further management. At [facility], the patient continued | | to [...] cannulation with micropuncture | | wire. A 7-Canadian sheath was placed in an antegrade direction down the SFA for distal | | perfusion. A 19-Canadian arterial cannula was placed in a retrograde [...] 03/15/2017 15:23:00DT: 03/15/2017 15:42:27Job #: | | [id number] | | | |A 19-Canadian arterial cannula was placed in a retrograde [...] |HS/MODL | | | | | | /[id number] | + + CBC (HEMOGRAM) ONLY (03/16/2017 [...] + + | [facility] | [address] [facility] | [place] [address] | | | ARASH, ИРИНА | TABITHA [...] | + + + + + | [facility] | [address] | [place] [address] | | | SERVICES, CORE | TABITHA [...] | + + + + + | [facility] | [address] | [place] [address] | | | SERVICES, CORE | PARK [...] - [facility] | [address] | [place], [place] | | | JULIANN SILVA OF CARE | [facility] | [address] | | | TESTS | | | [...] (H) | 60 - 99 mg/dL | [facility] - | | | GLUCOSE, | [...] [facility] | [address] | [place], [place] | | | RICARDO POINT OF CARE | [address] | [address] | | | TESTS | | | [...] [facility] | [address] | [place], [place] | | | JULIANN SILVA OF ALEXIS | [facility] | [address] | | | TESTS | | | | + + + + + X-RAY PORTABLE CHEST 1 VIEW (03/16/2017 5:44 AM PDT) + + | Specimen | + + | | + + + + + | Narrative | Performed At | + + + | EXAM: LA CHEST 1 VIEW HISTORY: Evaluate cannula placement. heart | [facility] | | failure. COMPARISON: Yesterday FINDINGS: Endotracheal | RADIOLOGY VOICE | | tube, [place]-Олег catheter and enteric tube remain in place. [...] Note | + + | Service Account, HiperScan In Interface - 03/16/2017 8:27 AM PDT EXAM: LA CHEST 1 | | VIEW HISTORY: Evaluate cannula placement. heart failure.COMPARISON: YesterdayFINDINGS: | | Endotracheal tube, [place]-Олег catheter and enteric tube remain in place. [...] [facility] | [address] | [place], [place] | | | JULIANN SILVA OF CARE | [address] | [address] | | | TESTS | | | [...] [facility] | [address] | [place], [place] | | | JULIANN SILVA OF [place]LEXIS | [facility] | [address] | | | TESTS | | | | + + + + + JX-DF-ASH-HBPOC RT (03/16/2017 3:42 AM PDT) + + [...] [facility] | [address] | [place], [place] | | | RICARDO POINT OF CARE | [address] | [address] | | | TESTS | | | [...] MARIA | [address] | [place], [place] | | | JULIANN SILVA OF [place] | [address] | [address] | | | TESTS | | | [...] | + + + + + | [facility] | [address] | [place] [address] | | | SERVICES, CORE | TABITHA [...] [facility] | [address] | [place], [place] | | | RICARDO POINT OF ALEX[place] | [address] | [address] | | | TESTS | | | [...] [facility] | [address] | [place] [address] | | | ИРИНА ANTOINE | TABITHA [...] | + + + + + | [facility] | [address] [facility] | [place] [address] | | | SERVICES, CORE [...] | | | LABORATORY | | | [place]ORE[place] | | | SERVICES, | | | [...] [facility] | [address] | [place] [address] | | | SERVICES, CORE | PARK [...] [facility] | [address] | [place] [address] | | | SERVICES, CORE | TABITHA [...] | + + + + + | [facility] | [address] | [place] [address] | | | SERVICES, CORE | TABITHA [...] | + + + + + | [facility] | [address] | [place] [address] | | | SERVICES, CORE | [address] | | | + + + + + MAGNESIUM, PLASMA (03/16/2017 3:35 AM PDT) + +-------+ + + + | Component | Value | Ref Range | Performed | Pathologist | | | | | At | Signature | + +-------+ + + + | MAGNESIUM,P | 2.1 | 1.8 - 2.5 mg/dL | [facility] | | | LASMA | | | [...] | + + + + + | [facility] | [address] | [place] [address] | | | SERVICES, CORE | TABITHA [...] MARIA | [address] | [place], [place] | | | JULIANN SILVA OF [facility]LEX[facility] | [address] | [address] | | | TESTS | | | [...] | + + + + + | [facility] | [address] | [place] [address] | | | ARASH, ИРИНА | TABITHA [...] (H) | 60 - 99 mg/dL | [facility] - | | | GLUCOSE, | [...] [facility] | [address] | [place], [place] | | | JULIANN SILVA OF CARE | [address] | [address] | | | TESTS | | | [...] | + + + + + | [facility] | [address] [facility] | [place] [address] | | | SERVICES, CORE | TABITHA [...] | | | LABORATORY | | | [place] | | | SERVICES, | | | [...] | + + + + + | [facility] | [address] | [place] [address] | | | ARASH, CORE | [address] | | | + + + + + FJ-QK-GHX-HB,POC RT (03/16/2017 12:22 AM PDT) + + [...] [facility] | [address] | [place], [place] | | | [facility] CARE | [address] | [address] | | | TESTS | | | [...] [facility] | [address] | [place], [place] | | | JULIANN SILVA OF CARE | [address] | [address] | | | TESTS | | | [...] [facility] | [address] | [place], [place] | | | JULIANN SILVA OF CARE | [address] | [address] | | | TESTS | | | [...] [facility] | [address] | [place], [place] | | | [facility] | [address] | [address] | | | TESTS | | | | + + + + + X-RAY PORTABLE CHEST 1 VIEW (03/15/2017 9:44 PM PDT) + + | Specimen | + + | | + + + + + | Narrative | Performed At | + + + | EXAM: LA CHEST 1 VIEW HISTORY: Evaluate new endotracheal [...] Note | + + | Service Account, HiperScan In Interface - 03/16/2017 8:27 AM PDT EXAM: LA CHEST 1 | | VIEW HISTORY: Evaluate [...] [facility] | [address] | [place], [place] | | | JULIANN SILVA OF CARE | [facility] | [address] | | | TESTS | | | [...] (H) | 60 - 99 mg/dL | [facility] - | | | GLUCOSE, | [...] MARIA | [address] | [place], [place] | | | JULIANN SILVA OF [facility] | [address] | [address] | | | TESTS | | | [...] [facility] | [address] | [place] [address] | | | SERVICES, CORE | PARK [...] | + + + + + | [facility] | [address] | [place] [address] | | | SERVICES, CORE | TABITHA [...] | + + + + + | [facility] | [address] | [place] [address] | | | SERVICES, ИРИНА | TABITHA [...] | Ambubag and suction available at bedside. [facility] Mac 4 used to | | | visualize airway, Grade III view with old blood and new blood | | | present in laryngopharynx plus edema. A [employer] | | | catheter was [...] | [facility] | [address] | [place], [place] | | | JULIANN SILVA OF CARE | [address] | [address] | | | TESTS | | | | + + + + + NL-QC-ZXX-HB,POC RT (03/15/2017 7:39 PM PDT) + + [...] [facility] | [address] | [place], [place] | | | JULIANN SILVA OF [facility] | [address] | [address] | | | TESTS | | | [...] [facility] | [address] | [place], [place] | | | [facility]ARE | [address] | [address] | | | TESTS | | | [...] [facility] | [address] | [place], [place] | | | [facility] | [facility] | [address] | | | TESTS | | | | + + + + + X-RAY PORTABLE CHEST 1 VIEW (03/15/2017 5:51 PM PDT) + + | Specimen | + + | | + + + + + | Narrative | Performed At | + + + | STUDY: LA CHEST 1 VIEW 03/15/17 17:40:08 COMPARISON: 03/15/17 [...] Interface - 03/15/2017 6:20 PM PDT STUDY: LA CHEST 1 | | VIEW 03/15/17 17:40:08COMPARISON: [...] given by: Power of | | | admitted attorneys Patient identity confirmed per policy: Yes Team Pause: | | | Immediatly prior to the procedure a pause per protocol was called. A | | | pause verifies correct patient, procedure, equipment, business support liaison | | | and site/side marked as [...] modified Seldinger technique (a | | | kalhrnnu-rvuh-oqm-wwslwp-zbhp-bjio-hwybzox-pbk-rwmsmllw) was used for | | | vessel [...] Name: Ron Mckeon MRN: | | | [id number] 03/15/2017 Time: 5:26 PM Diagnosis: shock At [...] Ramon Alvarado | | | MD [place], [facility] Emergency Medicine Personal Pager: [phone] | | | | | + + + LACTATE (03/15/2017 4:49 PM PDT) + + + + + + | Component | Value | Ref Range | Performed | Pathologist | | | | | At | Signature | + + + + + + | LACTATE | 7.5 () | mmol/L | [facility] | | | | | [...] | + + + + + | [facility] | [address] | [place] [address] | | | SERVICES, CORE | TABITHA [...] (H) | 60 - 99 mg/dL | [facility] - | | | GLUCOSE, | [...] RODGERS | [address] | [place], [place] | | | RICARDO POINT OF CARE | [address] | [address] | | | TESTS | | | [...] RODGERS | [address] | [place], [place] | | | JULIANN SILVA OF CARE | [address] | [address] | | | TESTS | | | | + + + + + X-RAY PORTABLE CHEST 1 VIEW (03/15/2017 4:03 PM PDT) + + | Specimen | + + | | + + + + + | Narrative | Performed At | + + + | EXAM: LA CHEST 1 VIEW 03/15/17 15:42:37 HISTORY: ECMO [...] Note | + + | Service Account, HiperScan In Interface - 03/15/2017 6:18 PM PDT EXAM: LA CHEST 1 | | VIEW 03/15/17 15:42:37 [...] RODGERS | [address] | [place], [place] | | | JULIANN SILVA OF CARE | [address] | [address] | | | TESTS | | | [...] MARQUAM | [address] | [place], [place] | | | RICARDO POINT OF CARE | [address] | [address] | | | TESTS | | | [...] BLUAM | [address] | [place], [place] | | | JULIANN SILVA OF [facility] | [address] | [address] | | | TESTS | | | [...] | + + + + + | [facility] | [address] | [place] [address] | | | SERVICES, CORE | TABITHA [...] | + + + + + | [facility] | [address] | [place] [address] | | | ARASH, ИРИНА | TABITHA [...] | + + + + + | [facility] | [address] | [place] [address] | | | SERVICES, CORE | PARK [...] | + + + + + | [facility] | [address] [facility] | [place] [address] | | | SERVICES, CORE | TABITHA [...] | | | LABORATORY | | | [place] | | | SERVICES, | | | [...] | + + + + + | [facility] | [address] | [place] [address] | | | SERVICES, CORE | TABITHA [...] [facility] - Mail Code L353 [address] [facility] | | | [place] [address] | | + + + X-RAY PORTABLE CHEST 1 VIEW (03/15/2017 2:32 PM PDT) + + | Specimen | + + | | + + + + + | Narrative | Performed At | + + + | STUDY: LA CHEST 1 VIEW 03/15/17 14:21:08 COMPARISON: 03/15/17. [...] Note | + + | Service Account, HiperScan In Interface - 03/15/2017 2:46 PM PDT STUDY: LA CHEST 1 | | VIEW 03/15/17 14:21:08COMPARISON: [...] + + + + | PRODUCT | [id number] | | [facility] | | | UNIT [...] + + + + | EXPIRATION | [id number] | | [facility] | | | DATE [...] + + + + | BLOOD | [id number] | | [facility] | | | PRODUCT [...] [facility] | [address] | [place] [address] | | | SERVICES, | [address] [...] + + + + | PRODUCT | [id number] | | [facility] | | | UNIT [...] + + + + | EXPIRATION | [id number] | | [facility] | | | DATE [...] + + + + | BLOOD | [id number] | | [facility] | | | PRODUCT [...] [facility] | [address] | [place] [address] | | | SERVICES, | [address] [...] + + + + | PRODUCT | [id number] | | [facility] | | | UNIT [...] + + + + | EXPIRATION | [id number] | | [facility] | | | DATE [...] + + + + | BLOOD | [id number] | | [facility] | | | PRODUCT [...] [facility] | [address] | [place] [address] | | | SERVICES, | [address] [...] + + + + | PRODUCT | [id number] | | [facility] | | | UNIT [...] + + + + | EXPIRATION | [id number] | | [facility] | | | DATE [...] + + + + | BLOOD | [id number] | | [facility] | | | PRODUCT [...] | + + + + + | [facility] | [address] | [place] [address] | | | ARASH, | TABITHA ALICEA | | | | TRANSFUSION MEDICINE | | | | + + + + + CN-MF-HIJ-HB,POC RT (03/15/2017 1:23 PM PDT) + + + + + + | Component | Value | Ref Range | Performed | Pathologist | | | | | At | Signature | + + + + + + | HCO3 | 19.6 (L) | 21 - 28 mmol/L | [facility] - | | | ARTERIAL, | | [...] BLUAM | [address] | [place], [place] | | | JULIANN SILVA OF CARE | [facility] | [address] | | | TESTS | | | [...] - ANA MARIA | [address] | [place], [place] | | | RICARDO POINT OF CARE | [address] | [address] | | | TESTS | | | [...] Performed At | + + + | [facility] | [facility] DEPT OF | | [facility] Adult Echocardiography | CARDIOLOGY | | Laboratory [address] [place] [address] | | | [place] [address] Pt Name: | | | RON Neena MCKEON Study Date/Time 03/15/2017 / 12:54:21 | | | PMMRN: [id number] Most recent | | | prior: -Acc #: [id number] No. previous | | | echos: 0DOB: 1955 61 years Heart Rate: | | | 145 bpmHeight: Blood | | | Pressure: 90/67 mm/HgWeight: 249.0 | | | lb Gender: | | | MBSA: 2.34 m2 Order | | | ID: [id number] Process Safety Manager: Vahid Parmar [facility] | | | Referring Provider: Gaurav [...] Report electronically signed by: | | | [id number] Yajaira Johnson MD (03/15/2017, 3:38:52 PM) Final | | | | | | | | | | | | Final | | + + + + + | Procedure Note | + + | Interface, Cardiology Results - 03/15/2017 3:[address] [facility] | | [facility] Echocardiography Laboratory [address] [place] [address] | | [place], [place] [address] Pt Name: RON Chaudhary | | MIKE Study Date/Time 03/15/2017 / 12:54:21 PMMRN: [id number] Most | | recent prior: -Acc #: [id number] No. previous echos: 0DOB: 1955 61 | | years Heart Rate: 145 bpmHeight: Blood Pressure: 90/67 | | mm/HgWeight: 249.0 lb Gender: MBSA: 2.34 m2 | | Order ID: [id number] Process Safety Manager: [facility]ahid Parm[facility]: | | Gaurav Castellanos Location: [...] values Report electronically signed by: | | [id number] Yajaira Johnson MD (03/15/2017, 3:38:52 PM) Final [...] | | | |Report electronically signed by: [id number] Yajaira Johnson MD (03/15/2017, 3:38:52 PM) | | | | | | | | Final | + + + + + + + | Performing | Address | City/State/[facility] | Phone Number | | Organization | | | | + + + + + | [facility] DEPT OF | [address] | [place], [place] | | | CARDIOLOGY | [address] | [address] | | + + + + + X-RAY PORTABLE CHEST 1 VIEW (03/15/2017 12:46 PM PDT) + + | Specimen | + + | | + + + + + | Narrative | Performed At | + + + | STUDY: LA CHEST 1 VIEW 03/15/17 12:12:08 COMPARISON: None. [...] Note | + + | Service Account, [employer] Res In Interface - 03/15/2017 1:10 PM PDT STUDY: LA CHEST 1 | | VIEW 03/15/17 12:12:08COMPARISON: [...] DEPT OF | [address] | [place], [place] | | | CARDIOLOGY | [address] | [address] | | + + + + + [...] [facility] | [address] | [place] [address] | | | SERVICES, | [address] [...] [facility] | [address] | [place] [address] | | | SERVICES, | [address] [...] [facility] | [address] | [place] [address] | | | ARASH, ИРИНА | [address] [...] included in the neutrophil count. | ИРИНА ANTOIEN | + + + + + + + + | Performing | Address | City/State/Zipcode | Phone Number | | Organization | | | | + + + + + | [facility] | [address] | [place] [address] | | | SERVICES, ИРИНА | TABITHA [...] [facility] | [address] | [place] [address] | | | SERVICES, | [address] [...] [facility] | [address] | [place] [address] | | | SERVICES, CORE | PARK [...] | + + + + + | [facility] | [address] [facility] | [place] [address] | | | SERVICES, CORE | TABITHA [...] | + + + + + | [facility] | [address] | [place] [address] | | | SERVICES, CORE | TABITHA [...] | | | LABORATORY | | | [place] | | | SERVICES, | | | [...] | + + + + + | [facility] | [address] | [place] [address] | | | SERVICES, CORE | [address] | | | + + + + + XK-PT-JAX-DWAINEPOC RT (03/15/2017 12:16 PM PDT) + + [...] EULOGIO RODGERS | [address] | [place], [place] | | | R[facility]O [facility] | [address] | [address] | | | TESTS | | | [...] of unspecified type of vessel, | | [place] or graft | + + | Tongue [...] 5:37 | | | | | dose, Dane 03/29/17 at 0530 | | AM PDT [...] | | | | ONCE, 1 dose, [facility] 03/19/17 at 1415 | | PM [...] | EVERY 8 HOURS, First dose on Ardha | | AM PDT | | | [...] | | | | ONCE, 1 dose, [facility] 03/20/17 at | | AM PDT | [...] 10:04 | | | | | dose, Dane 03/22/17 at 1000 | | AM PDT [...] | | First dose on [facility] 03/19/17 at | | AM PDT [...] 4:45 | | | | | dose, [facility] 03/19/17 at 1630 | | PM PDT | | | | + +-------+ +-------+---+---+ +---+---+ | | | +---+---+ + +-------+ +-------+---+---+ | furosemide (LASIX) injection 20 | Given | 03/20/20 | 20 mg | | | | mg 20 mg, intravenous, ONCE, 3:07 | | | | | dose, [facility] 03/20/17 at 0400 | | AM PDT [...] | | | | | | Starting [facility] 03/19/17 at 1900, | | | [...] | | | | Until [facility] 04/02/17 at 2030, | | | [...] | | | | ONCE, 1 dose, Dane 03/15/17 at 1815 | | PM PDT [...] | | | | Until [facility] 04/02/17 at 2030, severe | | [...] | | | | | 1 dose, [facility] 03/18/17 at 0130 | | AM [...]
--- OUTSIDE RECORDS SUMMARY | ~2019-02-13 | XMS | Encounter Summary ---
Demographics + + + | Address | [address] | | | [place] [address] | + + + | Home Phone [...] | [place] | | | | | [address] | | + + + + + Care Team Providers + +------+ + | Care Wind Turbine Installer Name | Role | Phone | [...] | | | involving | [address] [place] | | | | | [place] | [place] | [place] | | | | | coronary | [address] | [address] | | | | | artery of | Phone: | Phone: | | | | | [place] heart | [phone] | [phone] | | | | | without | Fax: | Fax: | | | | | angina | [phone] | [phone] | | | | | pectoris | | | + + + + + + + Encounter Details +--------+---------+ + + + | Date | Type | Department | Care Team | Description | +--------+---------+ + + + | 12/07/ | Office | [facility] | Randy Figueroa, | Coronary artery | | 2019 | Visit | MED CTR CARDIAC | MD [address] | disease involving | | | | REHABILITATION [address] | [place], | [place] coronary | | | | [address] [place] | [place] [address] | artery of [place] | | | | [place] [address] | [phone] | heart without angina | | | | [phone] | | pectoris (Primary | | | [...] note might be different from the orig [facility] CARDIAC REHABILITATION [address] [facility] [address] Cardiac Rehab Date: 12/07/2018 Patient Information Patient Name: Bob Will Date of : 1955 Age: 63 y.o. Encounter Diagnoses Code Name Primary? I25.10 Coronary artery disease involving [place] coronary artery of [place] heart without angina pectoris Yes Z98.61 Post [...] | 03/08/ | Office | Nephrology | [facility], | | | 2018 | Visit | | ADARSH [address] | | | | | | [address] , [facility] | | | | | [...] W | | | | | | [place], | | | | | | [place] [address] | | | | | | [phone] | | | | | | | | +--------+ + + + + documented as of this encounter Visit Diagnoses + + | Diagnosis | + + | Coronary artery disease involving [place] coronary artery of [place] heart without | | angina pectoris - Primary | + + | Post PTCA Postsurgical percutaneous transluminal coronary angioplasty status | + + documented in this encounter"
--- OUTSIDE RECORDS SUMMARY | ~2019-02-13 | XMS | Encounter Summary ---
Demographics + + + | Address | [address] | | | [place] [address] | + + + | Home Phone [...] [place] | | | | | [address] | | + + + + + Care Team Providers + +------+ + | Care Pastoral Worker Name | Role | Phone | [...] NEPHROLOGY [address] | MD [address] | | | | | [address] | [address] [place] | | | | | [place], [place] | [place] [address] | | | | | [address] | [phone] | | | | | [phone] | | | +--------+ + + + [...] | Office | Nephrology | [facility], | | | 2019 | Visit | | ADARSH [address] | | | | | | [address], [place] | | | | | | [address] [place] | | | | | | [address] | | | | | | | | +--------+ + + + + | 03/24/ | Procedure | Cardiology | | | | 2019 | visit | | | | +--------+ + + + + | 03/24/ | Office | Cardiology | Jenny, | | | 2018 | Visit | | ADARSH Santo [address] | | | | | | [place], | | | | | | [place] [address] | | | | | | [phone] | | | | | | | [...]
--- OUTSIDE RECORDS SUMMARY | ~2019-02-13 | XMS | Encounter Summary ---
Demographics + + + | Address | [address] | | | [place] [address] | + + + | Home Phone [...] | [place] | | | | | [address] | | + + + + + Care Team Providers + +------+ + | Care Math And Physics Instructor Name | Role | Phone | [...] | | | involving | [address] [place] | | | | | [place] | [employer] [place], [place] | [place], [place] | | | | | coronary | [address] | [address] | | | | | artery of | Phone: | Phone: | | | | | [place] heart | [phone] | [phone] | | | | | without | Fax: | Fax: | | | | | angina | [phone] | [phone] | | | | | pectoris | | | + + + + + + + Encounter Details +--------+---------+ + + + | Date | Type | Department | Care Team | Description | +--------+---------+ + + + | 11/18/ | Office | [facility] | Randy Figueroa, | Coronary artery | | 2019 | Visit | MED CTR CARDIAC | [address] | disease involving | | | | REHABILITATION [address] | [place], | [place] coronary | | | | [address] [place] | [place] [address] | artery of [place] | | | | [place] [address] | [phone] | heart without angina | | | | [phone] | | pectoris (Primary | | | [...] might be different from the orig [place]. [facility] CARDIAC REHABILITATION [address] [facility] [address] Cardiac Rehab Date: 11/18/2018 Patient Information Patient Name: Bob Will Date of : 1955 Age: 63 y.o. Encounter Diagnoses Code Name Primary? I25.10 Coronary artery disease involving [place] coronary artery of [place] heart without angina pectoris Yes Z98.61 Post [...] 03/08/ | Office | [facility]ph[facility] | [facility] | [facility] | Visit | | ADARSH [address] | | | | | | [address] [facility] | | | | | | [address] [place] | | | | | | [id number] | | | | | | | [...] | | | | | | [place] [address] | | | | | | [phone] | | | | | | | | +--------+ + + + + documented as of this encounter Visit Diagnoses + + | Diagnosis | + + | Coronary artery disease involving [place] coronary artery of [place] heart without | | angina pectoris - Primary | + + | Post PTCA Postsurgical percutaneous transluminal coronary angioplasty status | + + documented in this encounter"
--- OUTSIDE RECORDS SUMMARY | ~2019-02-13 | XMS | Encounter Summary ---
Demographics + + + | Address | [address] | | | [place] [address] | + + + | Home Phone [...] | [place] | | | | | [address] | | + + + + + Care Team Providers + +------+ + | Care Manager Video Name | Role | Phone | + [...] | | | involving | [address] | [address] [place] | | | | | [place] | [place] | [place] | | | | | coronary | [address] | [address] | | | | | artery of | Phone: | Phone: | | | | | [place] heart | [phone] | [phone] | | | | | without | Fax: | Fax: | | | | | angina | [phone] | [phone] | | | | | pectoris | | | + + + + + + + Encounter Details +--------+---------+ + + + | Date | Type | Department | Care Team | Description | +--------+---------+ + + + | 12/02/ | Office | [facility] | Randy Figueroa, | Coronary artery | | 2019 | Visit | MED CTR CARDIAC | MD [address] | disease involving | | | | REHABILITATION [address] | [place], | [place] coronary | | | | [address] [place] | [place] [address] | artery of [place] | | | | [place] [address] | [phone] | heart without angina | | | | [phone] | | pectoris (Primary | | | [...] [facility] CARDIAC REHABILITATION [address] [facility] [address] Cardiac Rehab Date: 12/02/2018 Patient Information Patient Name: Bob Will Date of : 1955 Age: 63 y.o. Encounter Diagnoses Code Name Primary? I25.10 Coronary artery disease involving [place] coronary artery of [place] heart without angina pectoris Yes Z98.61 Post [...] | Office | Nephrology | [facility], | | | 2018 | Visit | | ADARSH [address] | | | | | | [address] , [facility] | | | | | | [address] [address] | | | | | | [address] | | | | | | | | +--------+ + + + + | 03/24/ | Procedure | Cardiology | | | | 2018 | visit | | | | +--------+ + + + + | 03/24/ | Office | Cardiology | Jenny, | | | 2018 | Visit | | ADARSH [address] | | | | | | [place], | | | | | | [place] [address] | | | | | | [phone] | | | | | | | | +--------+ + + + + documented as of this encounter Visit Diagnoses + + | Diagnosis | + + | Coronary artery disease involving [place] coronary artery of [place] heart without | | angina pectoris - Primary | + + | Post PTCA Postsurgical percutaneous transluminal coronary angioplasty status | + + documented in this encounter"
--- OUTSIDE RECORDS SUMMARY | ~2019-02-13 | XMS | Encounter Summary ---
Demographics + + + | Address | [address] | | | [place] [address] | + + + | Home Phone [...] [place] | | | | | [address] | | + + + + + Care Team Providers + +------+ + | Care Underwriting Operations Manager Name | Role | Phone | + +------+ + | Venus aLinez MD | PCP | | + +------+ + Encounter Details +--------+ + + + + | Date | Type | Department | Care Team | Description | +--------+ + + + + | 01/26/ | Orders Only | [facility] | Fackenthall, | Chronic kidney | | 2019 | | NEPHROLOGY [address] | [address] Yovana[address]ARSH [address] | disease, stage IV | | | | [address] | [address], [place] | (severe) (HCC) | | | | [place], [place] | [address] [place] | (Primary Dx); Anemia | | | | [address] | [address] | in chronic kidney | | | | [phone] | | disease, unspecified | | | [...] encounter Progress Notes Sharon Saldana RN - 01/26/2019 1358 PDTLabs for upcoming nephrology appointment sent to: [facility] Everywhere 05/04/18 Binronically signed by Sharon Saldana RN at 01/27/20 14:08 PDTdocumented in this encounter Plan of Treatment +--------+ + + + + | Date | Type | Specialty | Care Team | Description | +--------+ + + + + | 03/08/ | Office | Nephrology | Litzy, | | | 2019 | Visit | | ADARSH [address] | | | | | | [address], [place] | | | | | | [address] [place] | | | | | | [address] | | | | | | | | +--------+ + + + + | 03/24/ | Procedure | Cardiology | | | | 2018 | visit | | | | +--------+ + + + + | 03/24/ | Office | Cardiology | Jenny, | | | 2018 | Visit | | ADARSH [address] | | | | | | [address] [place], | | | | | | [place] [address] | | | | | | [phone] | | | | | | | | +--------+ + + + + + +--------+ + + | Name | Priori | Associated Diagnoses | Order Schedule | | | ty | | | + +--------+ + + | CBC with Differential | Routin | Chronic kidney | Expected: | | | e | disease, stage IV | 03/01/2019, Expires: | | | | (severe) (HCC) | 01/27/2020 | | | | Anemia in chronic | | | | | kidney disease, | | | | | unspecified CKD | | | | | stage | | + +--------+ + + | Renal Function Panel | Routin | Chronic kidney | Expected: | | | e | disease, stage IV | 03/01/2019, Expires: | | | | (severe) (HCC) | 01/27/2020 | + +--------+ + + | Vitamin D, Deficiency Screen | Routin | Chronic kidney | Expected: | | (25-Hydroxy) | e | disease, stage IV | 03/01/2019, Expires: | | | | (severe) (HCC) | 01/27/2020 | + +--------+ + + | Urinalysis With Microscopic | Routin | Chronic kidney | Expected: | | | e | disease, stage IV | 03/01/2019, Expires: | | | | (severe) ([facility]) | 01/27/2020 | + +--------+ + + | Parathyroid Hormone, Intact | Routin | Chronic kidney | Expected: | | | e | disease, stage IV | 03/01/2019, Expires: | | | | (severe) ([facility]) | 01/27/2020 | + +--------+ + + | Protein/Creatinine Ratio, Urine | Routin | Chronic kidney | Expected: | | | e | disease, stage IV | 03/01/2019, Expires: | | | | (severe) ([facility]) | 01/27/2020 | + +--------+ + + | Iron Profile | Routin | Chronic kidney | Expected: | | | e | disease, stage IV | 03/01/2019, Expires: | | | | (severe) ([facility]) | 01/27/2020 | | | | Anemia in chronic | | | | | kidney disease, | | | | | unspecified CKD | | | | | stage | | + +--------+ + + documented as of this encounter Visit Diagnoses + + | Diagnosis | + + | Chronic kidney disease, stage IV (severe) ([facility]) - Primary Chronic kidney disease, | | Stage IV (severe) | + + | Anemia in chronic kidney disease, unspecified CKD stage | + + documented in this encounter"
--- OUTSIDE RECORDS SUMMARY | ~2019-02-13 | XMS | Encounter Summary ---
Demographics + + + | Address | [address] | | | [place] [address] | + + + | Home Phone [...] [place] | | | | | [address] | | + + + + + Care Team Providers + +------+ + | Care Postal Worker Name | Role | Phone | [...] | | CARDIOLOGY [address] | [place], EMPLOYEE RELATION MANAGER [address] | | | | | [place], | [place], | | | | | [place] [address] | [place] [address] | | | | | [phone] | [phone] | | | | | | | [...] | | | | | | [address], [place] | | | | | | [address] [place] [address] | | | | | | [address] | | | | | | | [...] | | | | | | [place] [address] | | | | | | [phone] | | | | | | | | +--------+ + + + + documented as of this encounter Visit Diagnoses Not on filedocumented in this encounter"
--- OUTSIDE RECORDS SUMMARY | ~2019-02-13 | XMS | Clinical Summary ---
Demographics + + + | Address | [address] [place] [address] [address] | | | [place] [address] | + + + | Home Phone [...] | | | | | [place] [address] | | + + + + + Care Team Providers + +------+ + | Care Certified Professional Midwife Name | Role | Phone | + +------+ + | Chato Matson MD | PP | | + +------+ + Source Comments EULOGIO is fully live on both [facility] and [facility] InPatient.[facility] Allergies No Known Allergies Medications + + [...] resynchronization therapy | 10/17/2017 | | 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 | | -secretions improving, cough strong -s/p [...] stayExtubated 03/22, started on | | [place] Q5Mtmoz infusion begun 03/22 for daily goal -1 [...] during cath | | lab procedure at [facility]. Was shocked 17 times | | [...] | | | INC | | | [id number] | | Tejal Pettit MD | | | | | | X / | | | | | | | | /[address] | | | | | | | | [address] | + +------+--------+ +--------+--------+--------+ + + | [...] CROSS | | 16-Pre | 8 | [address] | | | | [place] | | sent | | [place], | | | | [place] | | | | [place] [address] | | + +--------+ +--------+ + +--------+ | MEDICAID [place] | O[facility] | xxxxxxxx | 03/07/20 | [phone] | [address] | | | PLUS | | 17-Pre | 6 | [id number] | id | | | OPEN | | sent | | [place], [place] | | | | CARD | | | | [id number] | | + +--------+ +--------+ + +--------+ + +--------+ +--------+ + + | Guarantor Name | Accoun | Relation to | Date | Phone | Billing Address | | | t Type | Patient | of | | | | | | | | | | + +--------+ +--------+ + + | Suman,Bob J | Person | Self | [birth year] | [address] | | | al/Negro | | 1956 | [phone] | [address] | | | [place] | | | [address] (Home) | [phone] | + +--------+ +--------+ + + Advance [...]
--- OUTSIDE RECORDS SUMMARY | ~2019-02-13 | XMS | Encounter Summary ---
Demographics + + + | Address | [address] | | | [place] [address] | + + + | Home Phone | | + + + | Preferred Language | Unknown | + + + | Marital Status | | + + + | Pentecostal Affiliation | NRP | + + + [...] | | | | | [place] [address] | | + + + + + Care Team Providers + +------+ + | Care Pathology Laboratory Aide Name | Role | Phone | [...] Rocha | | | | | | [facility] | | | | | | [place], [place] | | | | | | [address] | | | +--------+ + + + [...]
--- OUTSIDE RECORDS SUMMARY | ~2019-02-13 | XMS | Encounter Summary ---
Demographics + + + | Address | [address] | | | [place] [address] | + + + | Home Phone [...] | | | | | [place] [address] | | + + + + + Care Team Providers + +------+ + | Care Shearer Helper Name | Role | Phone | [...] | | | | | | [place] [address] | | | +--------+--------+ + + + [...]
--- OUTSIDE RECORDS SUMMARY | ~2019-02-13 | XMS | Encounter Summary ---
Demographics + + + | Address | [address] | | | [place] [address] | + + + | Home Phone [...] [place] | | | | | [address] | | + + + + + Care Team Providers + +------+ + | Care Sample Tester Grinder Name | Role | Phone | [...] | | CARDIOLOGY [address] | [place], FEATHER RENOVATOR [address] | | | | | [place], | [place], | | | | | [place] [address] | [place] [address] | | | | | [phone] | [phone] | | | | | | | [...] | | | | | | [address], [place] | | | | | | [address] | | | | | | [address] | | | | | | | [...] | | | | | | [place] [phone] | | | | | | [phone] | | | | | | | | +--------+ + + + + documented as of this encounter Visit Diagnoses Not on filedocumented in this encounter"
--- OUTSIDE RECORDS SUMMARY | ~2019-02-13 | XMS | Encounter Summary ---
Demographics + + + | Address | [address] | | | [place] [address] | + + + | Home Phone | | + + + | Preferred Language | Unknown | + + + | Marital Status | | + + + | Mandaen Affiliation | NRP | + + + | Race | White | + + + | Ethnic Group | Not or | + + + Author + + + | Author | [facility] | + + + | Organization | [facility] | + + + | Address | Unknown | + + + | Phone | Unavailable | + + + Support + + + + + | Name | Relationship | Address | Phone | + + + + + | [place] | ECON | [address] | | | | | [place] [address] | | + + + + + Care Team Providers + +------+ + | Care Peer Specialist Name | Role | Phone | [...] Rocha | | | | | | [facility] | | | | | | [place], [place] | | | | | | [address] | | | +--------+ + + + [...]
--- OUTSIDE RECORDS SUMMARY | ~2019-02-13 | XMS | Encounter Summary ---
Demographics + + + | Address | [address] | | | [place] [address] | + + + | Home Phone [...] + + | Author | [facility] | + + + | Organization | [facility] | + + + | Address | Unknown | + + + | Phone | Unavailable | + + + Support + + + + + | Name | Relationship | Address | Phone | + + + + + | Venice Mckeon | ECON | [address] | | | | | [place] [address] | | + + + + + Care Team Providers + +------+ + | Care Manager Corporate Responsibility Name | Role | Phone | + [...] | | | | | (HCC) | [place], [place] | for Health | | | | | Stenosis of | [address] | and Healing | | | | | coronary | Phone: | [place], [place] | | | | | artery | [phone] | [address] | | | | | stent, | Fax: | Phone: | | | | | initial | [phone] | [phone] | | | | | encounter | | Fax: | | | | | Procedures | | [phone] | | | | | CONSULT TO [...] + + | 10/10/ | Hospital | [address] | Khurram Bedoya | | | 2018 - | Encounter | [address] | MD [address] | | | | | [address] [place] [address] | [address] | | | 10/17/ | | [place], [place] | [place] | | | 2018 | | [address] | [address] | | | | | [phone] | [phone] | | | | | | | [...] Referring Physician & Institution: Other Dictation Primary/Outpatient Assistant Project Engineer: Dr Jamal Guerrero MD Inpatient Attending Physician: Khurram Bedoya MD Author/Discharging Provider: LALA SCHOFIELD PA-C Admission Date: 10/10/2017 Discharge Date: 10/17/2017 Active Hospital Problems 1) *NSTEMI (non-ST elevated myocardial infarction) (HCC) 2) Coronary artery disease 3) Stenosis of coronary artery stent 4) Ischemic cardiomyopathy 5) Chronic systolic congestive heart failure (HCC) 7) Encounter for insertion of cardiac resynchronization therapy defibrillator (QUALITY ASSURANCE AUDITOR-D) 8) Paroxysmal atrial flutter (HCC) 9) Influenza, pneumonia 10) Prediabetes 11) Tobacco use Procedures 10/15/17: Successful percutaneous coronary intervention to the ostial left circumflex. One 3.0 x 18 mm Resolute Mercedita drug-eluting stent. Successful percutaneous coronary transluminal angiopla sty of the distal left main extending into the left anterior descending coronary artery with final kissing balloon inflation with a 3.5 mm noncompliant and a 2.5 mm compliant balloon. 10/16/17: 1) EP study with VT induction 2) QUALITY ASSURANCE AUDITOR-D implantation Reason For Admission: Consideration of complex PCI vs CABG for in-stent restenosis of LCx and LM/LAD stents Hospital Course: Please see H&P for hospital course at [facility] prior to transfer to [facility]. Ron Mckeon is a 61 year old [...] treatment who was admitted in transfer from [facility] on 10/11 for consideration of PCI vs [...] support--had one 3.0 x [address] ug-eluting stent placed in ostial L [...] 10/16. VT was induced, therefor e a QUALITY ASSURANCE AUDITOR-D was implanted. He is discharging home in good condition with follow up in 1 week w ith his Assistant Project Engineer. The following problems were addressed this [...] uenza and underwent a coronary angiogram at [facility] which revealed in stent re-stenosis of both LM into LAD and LCx stents, mild disease of RCA. Transferred to [facility] for further onel luation. CTS was consulted for consideration of CABG vs complex PCI. Due to nonviable myocardium archie wn on cardiac PET and resting NM perfusion study, PCI was chosen over CABG. On 10/15 he underw ent angiography/PCI with impella support--had one 3.0 x 18 mm Resolute Mercedita drug-eluting chery nt placed in ostial L [...] II, Stage C. Etiology ischemic. TTE at [facility] showed EF 30-35%, mildly reduced RV function, [...] the past --ICD: placed by EP 10/16, QUALITY ASSURANCE AUDITOR-D -- will need 1 week f/u for wound check, then 1 month device check with EP -- f/u with outpatient oilfield plant and field operator 2-4 weeks # Paroxysmal Aflutter Noted Aflutter with RVR at admission in [facility]; treated with amiodarone infusion. He w as transitioned to oral amiodarone and maintained normal rhythm. Given that the aflutter occ urred in setting of severe sepsis, will not continue amiodarone or warfarin. If he has recur rent arrhythmia, this will be noted on QUALITY ASSURANCE AUDITOR-D and could consider anticoagulation at that time . However, he requires DAPT and has a possible history of recent GIB, so triple therapy shou ld be avoided if not necessary --rate control: metoprolol as above --anticoagulation: holding warfarin for now given DAPT and h/o GI B. Discuss further with outpatient oilfield plant and field operator. May consider holding anticoagulation unless he demonstrates recurrent arrhythmia # Influenza type A - resolved # Community acquired pneumonia # Severe sepsis with shock, resolved Pt presented to [facility] 10/03 found to be Flu Apositive with [...] sepsis management , fluid resuscitation. EGD at [facility] on 10/05 showed gastritis, duodenitis, linear ulcerations [...] first post-hospitalization visit: 1. Wound check from QUALITY ASSURANCE AUDITOR-D placement 2. Consider restarting lisinopril if BPs improve and Cr is stable 3. Instructed pt to restart metformin on 08/18 but reevaluate based on Cr Schedule the following appointment(s) when you get home KULWINDER Stevens. Go on 10/19/2017. Why: at 1:15pm for heart failure follow up, to re-check labwork, and to have your wound ch ecked Contact information HEART [address] [address] KULWINDER Stevens. Go on 11/11/2017. Why: at 9:30am for cardiology follow up and to have your device checked Contact information HEART [address] [address] Medication List START taking these medications Childrens [...] Resume on 10/19. Indications: type 2 diabetes [facility] metoprolol succinate 25 mg Tb24 [...] circumflex. One 3.0 x 18 mm Resolute Mercedita drug-eluting stent. Successful percutaneous coronary transluminal angiop [...] ths. You should be cleared by your oilfield plant and field operator prior to returning to driving. If you [...] How to Contact us: Cardiology Division Office [phone] Cardiology Patient Phone Line EDUIN [address] Dr[address] Dr., Dr., PA-C Connie Barber, NP Karen Paladino, RN Margaret Kleist, RN Evenings or weekends: Ask for on-call oilfield plant and field operator Drug Eluting Stent 1. Please take Plavix (clopidogrel) everyday which helps to keep the stent open. You need t o take it every day for one year and do not stop unless you are told to by your oilfield plant and field operator . 2. Take an aspirin 81 mg once daily indefinitely. 3. You were referred for cardiac rehab and should start now that you have had a stent place d. 4. Follow up with your oilfield plant and field operator within 2-4 weeks. 5. No elective surgeries [...] Lala Schofield PA-C Instructor of Cardiovascular Medicine [facility] [place] [facility] I spent 36 minutes in coordination of care and zatt-qz-wbud with the patient and/or their s urrogate in which the problems above were discussed Associated attestation - Khurram Bedoya MD - 10/17/2017 3:22 PM PSTCardiology Anthony souza I have seen and examined Mr. Mckeon and discussed the [facility]. I reviewed the practitioner's note above and agree with the documented f indings and plan of care. KHURRAM BEDOYA MD Director of the [facility] Hypertrophic Cardiomyopathy Explosive Ordnance Technician of Echocardiography Hand Salterpump press operator Division of Cardiovascular Medicine documented in this encounter Discharge Instructions AttachmentsThe following attachments cannot be sent through Care Everywhere.WOUND CHECK (EN GLISH)ICD (IMPLANTABLE CARDIOVERTER-DEFIBRILLATOR): POST-OP (SAUDI ARABIAN)PAIN POST-SURGERY: ACUT E (SAUDI ARABIAN)OPIOIDS: SAFE USE (SAUDI ARABIAN)OPIOIDS: STORAGE AND DISPOSAL: GENERAL INFO (SAUDI ARABIAN)d ocumented in this encounter Medications at Time [...] Information: Implant date: 10/16/17 BiV-ICD pulse generator: Manager Inspection: MedDoutor Recomenda Model number: [id number] Serial number: [id number] RA lead: Manager Inspection: Medtronic Model number: [id number] Serial number: [id number] RV lead: Manager Inspection: Medtronic Model number: [id number] Serial number: [id number] CS lead: Manager Inspection: Medtronic Model number: [id number] Serial number: [id number] ICD PROGRAMMING: Bradycardia Parameters: Mode: DDD Lower rate limit: 50 Upper rate limit: 130 Output (A): 3.5 V at 0.4 ms Sensitivity (A): 0.3 mV Output (RV): 3.5 V at 0.4 ms Sensitivity (RV): 0.3 mV Output (CS): 2.0 V at 0.4ms Tachycardia Parameters: VT zone: 177-200 Therapies: Monitor VF zone: >200 bpm Therapies: 35 J x 6 PACING PERCENTAGE: AP: <0.1% HOSE HANDLER: 98.3% EPISODES SINCE IMPLANT: none. TODAY'S TESTING [...] and Device check in one month at [facility] device clinic. I have reque sted our [...] Cardiovascular Medicine [facility] Pager [phone] signed by Lauro Jorgensen MD at 10/18/2017 [...] follow up. Lauro Jorgensen M.D. Director, Electrophysiology Senior Publications Specialistchaser tar [facility] [place] [address] Amarilis Castle MD - 10/17/2017 10:53 AM [...] hs. You should be cleared by your oilfield plant and field operator prior to returning to driving. ? If [...] through the full body scanner at the [facility], but only after 6 weeks post [...] How to Contact us: Cardiology Division Office [phone] Cardiology Patient Phone Line EDUIN [address] Dr[address] [...] 1) EP study with VT induction 2) QUALITY ASSURANCE AUDITOR-D Indication for the procedure: Ischemic cardiomyopathy with [...] Fellow Division of Cardiovascular Medicine [facility] Pager [phone] ala Schofield PA-C - 10/16/2017 2:07 PM PST IP Cardiology Progress Note Date: 10/16/2017 Hospital Day: 6 Attending Assistant Project Engineer: Khurram Bedoya MD Provider: LALA SCHOFIELD PA-C Primary Care Provider: Chato Matson MD Outpatient Assistant Project Engineer: Dr Jamal Guerrero MD ID:oRn Mckeon is a 61 year old male with past medical history of CAD s/p anterior CHERY NE 03/2017 with cardiogenic shock s/p PCI with ANY to LM/LAD and LCx with ECMO support, systo lic heart failure (EF 20-25%), ischemic cardiomyopathy, hypertension, Atrial flutter, prior tobacco use, recent JVAON thrombus on anticoagulation, Influenza A with septic shock (10/03) re quiring intubation and mechanical ventilation, HAP on treatment who was admitted in transfer from [facility] on 10/11 for consideration of PCI vs [...] cannot appreciate murmur and sounds regular. J HOSE HANDLER not above clavicle at 90 degrees Gastrointestinal: [...] found for: FREET4, TSH, TPOAB, THYROGLOB, THYROGLOBAB, [id number] Lab Results Component Value Date A1C 5.9 [...] circumflex. One 3.0 x 18 mm Resolute Mercedita drug-eluting stent. Successful percutaneous coronary transluminal angiopla [...] uenza and underwent a coronary angiogram at [facility] which revealed in stent re-stenosis of both LM into LAD and LCx stents, mild disease of RCA. Transferred to [facility] for further onel luation. CTS was consulted [...] II-III, Stage C. Etiology ischemic. TTE at [facility] showed EF 30-35%, mildly reduced RV function, [...] check with EP -- f/u with outpatient oilfield plant and field operator 2-4 weeks # Paroxysmal Aflutter Noted Aflutter with RVR at admission in [facility]; treated with amiodarone infusion. Now maintaining SR on oral amio. CHADS-VASC 3, HAS-BLED 3. Was previously on heparin infusion fo r NSTEMI but this has been stopped and AC was not started in anticipation of PCI. --rate control: carvedilol as above --rhythm control: continue amiodarone 200 mg daily for now, to be reassessed b y outpatient oilfield plant and field operator --anticoagulation: holding warfarin for now given DAPT and h/o GIB. Discuss fu rther with outpatient oilfield plant and field operator. May consider holding anticoagulation unless he demonstra janeth recurrent arrhythmia # Influenza type A - resolved # Community acquired pneumonia # Severe sepsis with shock, resolved Pt presented to [facility] 10/03 found to be Flu A positive [...] sepsis management , fluid resuscitation. EGD at [facility] on 10/05 showed gastritis, duodenitis, linear ulcerations [...] patient was interviewed and examined by attending oilfield plant and field operator, Dr. Khurram Bedoya MD , who is in agreement with above described findings, assessment and plan. LALA SCHOFIELD PA-C Cardiovascular Medicine [facility] Pager [phone] I spent 36 minutes in coordination of care and rtjf-xb-cqxy with the patient and/or their surrogate in [...] current post-cath car e. JOHN AMAYA MD [address] [place] [address] Ruth Ann Aguilar PA-C - [...] circ and LAD. EPS v-stim with possible QUALITY ASSURANCE AUDITOR-D tomorrow (QRS today is 152 atypical LB BB). See yesterdays attestation Sophie Darby MD Cardiovascular Medicine - Electrophysiology [facility] Cardiovascular [place] at [facility] Arya Low MD - 10/15/2017 1:05 PM PSTCARDIOLOGY PRELIMINARY PROCEDURE NOTE Primary Care Provider: Chato Matson MD Referring Provider: Other Dictation Applications Instructor Staff: Tejal Modi M.D. Procedure(s): 1. Coronary angiography 2. Percutaneous coronary intervention 3. Left heart catheterization 4. Impella placement and removal 5. Moderate conscious sedation Indications: Unstable angina, planned LM intervention Access: 14-Chadian RFA 6-Chadian RFV 7-Chadian LFA Post Procedure Access:No evidence of significant [...] Note Date: 10/15/2017 Hospital Day: 5 Attending Assistant Project Engineer: Khurram Bedoya MD Provider: LALA SCHOFIELD PA-C Primary Care Provider: Chato Matson MD Outpatient Assistant Project Engineer: Dr Jamal Guerrero MD ID:Ron Mckeon is a 61 year old male with past medical history of CAD s/p anterior CHERY NE 03/2017 with cardiogenic shock s/p PCI with ANY to LM/LAD and LCx with ECMO support, systo lic heart failure (EF 20-25%), ischemic cardiomyopathy, hypertension, Atrial flutter, prior tobacco use, recent JAVON thrombus on anticoagulation, Influenza A with septic shock (10/03) re quiring intubation and mechanical ventilation, HAP on treatment who was admitted in transfer from [facility] on 10/11 for consideration of PCI vs [...] cannot appreciate murmur and sounds regular. J HOSE HANDLER not above clavicle at 90 degrees Gastrointestinal: [...] found for: FREET4, TSH, TPOAB, THYROGLOB, THYROGLOBAB, [id number] Lab Results Component Value Date A1C 5.9 [...] uenza and underwent a coronary angiogram at [facility] which revealed in stent re-stenosis of both LM into LAD and LCx stents, mild disease of RCA. Transferred to [facility] for further onel luation. CTS was consulted for consideration of CABG vs complex PCI. Due to nonviable myocardium archie wn on cardiac PET and resting NM perfusion study, he will proceed with PCI tomorrow with Imp tania support. -- to geochemical laboratory technician today for PCI with impella [...] II-III, Stage C. Etiology ischemic. TTE at [facility] showed EF 30-35%, mildly reduced RV function, [...] Noted Aflutter with RVR at admission in [facility]; treated with amiodarone infusion. Now maintaining SR [...] sepsis with shock, resolved Pt presented to [facility] 10/03 found to be Flu A positive [...] sepsis management , fluid resuscitation. EGD at [facility] on 10/05 showed gastritis, duodenitis, linear ulcerations [...] patient was interviewed and examined by attending oilfield plant and field operator, Dr. Khurram Bedoya MD , who is in agreement with above described findings, assessment and plan. LALA SCHOFIELD PA-C Cardiovascular Medicine [facility] Pager [phone] I spent 38 minutes in coordination of care and pjae-cg-mrhj with the patient and/or their surrogate in which the following was discussed: plan for PCI with impella support today, hea rt failure, anticoagulation for aflutter, discharge planning Associated attestation - Khurram Bedoya MD - 10/15/2017 1:15 PM PSTCardiology Attendi ng I have seen and examined Mr. Mckeon and discussed the patient's management with the [facility] practitioner. I reviewed the practitioner's note above and agree with the documented f indings and plan of care. KHURRAM BEDOYA MD Director of the [facility] Hypertrophic Cardiomyopathy Explosive Ordnance Technician of Echocardiography Hand Salterpump press operator Division of Cardiovascular Medicine Ruth Ann [...] thickening is segmentally abnormal. 10/03/17: TTE @ [facility] Summary The number of aortic valve leaflets [...] remain. CARDIAC CATHETERIZATION: DATE OF PROCEDURE:10/03/17 @ [facility] CORONARY ANGIOGRAPHY DOMINANCE: Right LEFT MAIN ARTERY: [...] about Vf/VT risk in both short and correction. Given NSVT and EF 30-35%, we will therefore proceed to an EP study with implantation o f an ICD if she has inducible VT. Given atypical LBBB QRS 147 and current functional status 3 (prior 1-2 by report) and concern for lack of EF recovery, we would plan for QUALITY ASSURANCE AUDITOR with His- bundle lead if needed. Sophie Darby MD Cardiovascular Medicine - Electrophysiology [facility] Cardiovascular [place] at [facility] Lala Schofield PA-C - 10/14/2017 11:58 AM PSTFormatting of this note might be different f rom the original. IP Cardiology Progress Note Date: 10/14/2017 Hospital Day: 4 Attending Assistant Project Engineer: Khurram Bedoya MD Provider: LALA SCHOFIELD PA-C Primary Care Provider: Chato Matson MD Outpatient Assistant Project Engineer: Dr Jamal Guerrero MD ID:Ron Mckeon is a 61 year old male with past medical history of CAD s/p anterior CHERY NE 03/2017 with cardiogenic shock s/p PCI with ANY to LM/LAD and LCx with ECMO support, systo lic heart failure (EF 20-25%), ischemic cardiomyopathy, hypertension, Atrial flutter, prior tobacco use, recent JAVON thrombus on anticoagulation, Influenza A with septic shock (10/03) re quiring intubation and mechanical ventilation, HAP on treatment who was admitted in transfer from [facility] on 10/11 for consideration of PCI vs [...] Very t hankful of care provided at [facility] Current Inpatient Medications: acetaminophen (TYLENOL) tablet 650 [...] found for: FREET4, TSH, TPOAB, THYROGLOB, THYROGLOBAB, [id number] Lab Results Component Value Date A1C 5.9 [...] uenza and underwent a coronary angiogram at [facility] which revealed in stent re-stenosis of both LM into LAD and LCx stents, mild disease of RCA. Transferred to [facility] for further onel luation. CTS was consulted [...] II-III, Stage C. Etiology ischemic. TTE at [facility] showed EF 30-35%, mildly reduced RV function, [...] Noted Aflutter with RVR at admission in [facility]; treated with amiodarone infusion. Now maintaining SR [...] sepsis with shock, resolved Pt presented to [facility] 10/03 found to be Flu A positive [...] sepsis management , fluid resuscitation. EGD at [facility] on 10/05 showed gastritis, duodenitis, linear ulcerations [...] patient was interviewed and examined by attending oilfield plant and field operator, Dr. Khurram Bedoya MD , who is in agreement with above described findings, assessment and plan. LALA SCHOFIELD PA-C Cardiovascular Medicine [facility] Pager [phone] I spent 42 minutes in coordination of care and nxam-vu-ayiq with the patient and/or their s urrogate in which the following was discussed: results of nuc med and PET scan studies indic ating no viable myocardium and thus will plan for complex PCI tomorrow Associated attestation - Khurram Bedoya MD - 10/14/2017 9:29 PM PSTCardiology Attendi libby I have seen and examined Mr. Mckeon and discussed the patient's management with the [facility] practitioner. I reviewed the practitioner's note above and agree with the documented f indings and plan of care. KHURRAM BEDOYA MD Director of the [facility] Hypertrophic Cardiomyopathy Explosive Ordnance Technician of Echocardiography Hand Salterpump press operator Division of Cardiovascular Medicine Ashleigh Alvarez ACNP - 10/13/2017 8:33 AM PSTFormatting of this note might be diff erent from the original. Cardiology Inpatient Progress Note Date: 10/13/2017 Hospital Day: 3 Primary Care Physician: Chato Matson MD Outpatient Assistant Project Engineer: Dr Jamal Guerrero MD Attending Assistant Project Engineer: Khurram Bedoya MD Provider: KULWINDER Grace [...] who was admitted in transfe r from [facility] on 10/11 for consideration of PCI vs [...] found for: FREET4, TSH, TPOAB, THYROGLOB, THYROGLOBAB, [id number] Lab Results Component Value Date A1C 5.9 [...] exam dated, 03/30/2017, the LVEF is similar. [facility] CXR 10/11/17: FINDINGS: The increased lung volumes. [...] flow to distal LAD 10/03/17 Echo at [facility]: The number of aortic valve leaflets cannot [...] stents # NSTEMI Pt was admitted to [facility] 10/03 with hypoxemic respiratory failure, severe sepsis and s hock thought to be due to influenza type A as below. Noted to have new LBBB, NSTEMI with pea k trop 26. Underwent coronary angiogram at [facility] 10/04 which revealed in stent re-steno sis of both LM into LAD and LCx stents, mild disease of RCA. Transferred to [facility] for further evaluation. TTE showed LV function [...] PCI (likely with Dr Modi with [facility] a support) which would require repeat bolus [...] II-III, Stage C. Etiology ischemic. TTE at [facility] showed EF 30-35%, mildly reduced RV function, mild dilation of ascending aorta. LVEDP 14 mm hg during catheterization 10/04 ( in setting of hypotension). Pt was diuresed at [facility], appears euvolemic on exam. Pt wa s [...] Noted Aflutter with RVR at admission in [facility], treated with amiodarone infusion, bertha alonzo SR [...] admitted with acute dyspnea, respiratory failure to [facility] 10/03 found to be Flu A p [...] sepsis management , fluid resuscitation. EGD at [facility] on 10/05 showed gastritis, duodenitis, linear ulcerations [...] patient was interviewed and examined by attending oilfield plant and field operator, Dr. Khurram Bedoya MD , who is in agreement with above described findings, assessment and plan. KULWINDER Grace Instructor of Medicine [facility] [place] Pager [phone] I spent 33 minutes in coordination of care and sdyu-dx-zgeg with the patient and/or their s urrogate in which management of CAD, imaging plan and consultation with radiology, revascula rization treatment was discussed Associated attestation - Khurram Bedoya MD - 10/13/2017 2:48 PM PSTCardiology Attendi I have seen and examined Mr. Mckeon and discussed the patient's management [facility] practitioner. I reviewed the practitioner's note above and agree with the documented f indings and plan of care. KHURRAM BEDOYA MD Director of the [facility] Hypertrophic Cardiomyopathy Explosive Ordnance Technician of Echocardiography Hand Salterpump press operator Division of Cardiovascular Medicine Ashleigh Alvarez ACNP - 10/12/2017 8:02 AM PSTFormatting of this note might be diff erent from the original. Cardiology Inpatient Progress Note Date: 10/12/2017 Hospital Day: 2 Primary Care Physician: Chato Matson MD Outpatient Assistant Project Engineer: Dr Jamal Guerrero MD Attending Assistant Project Engineer: Khurram Bedoya MD Provider: KULWINDER Grace [...] who was admitted in transfe r from [facility] on 10/11 for consideration of PCI vs [...] found for: FREET4, TSH, TPOAB, THYROGLOB, THYROGLOBAB, [id number] Lab Results Component Value Date A1C 5.6 [...] exam dated, 03/30/2017, the LVEF is similar. [facility] CXR 10/11/17: FINDINGS: The increased lung volumes. [...] flow to distal LAD 10/03/17 Echo at [facility]: The number of aortic valve leaflets cannot [...] stents # NSTEMI Pt was admitted to [facility] 10/03 with hypoxemic respiratory failure, severe sepsis and s hock thought to be due to influenza type A as below. Noted to have new LBBB, NSTEMI with pea k trop 26. Underwent coronary angiogram at [facility] 10/04 which revealed in stent re-steno sis of both LM into LAD and LCx stents, mild disease of RCA. Transferred to [facility] for further evaluation. TTE shows LV function [...] II-III, Stage C. Etiology ischemic. TTE at [facility] showed EF 30-35%, mildly reduced RV function, mild dilation of ascending aorta. LVEDP 14 mm hg during catheterization 10/04 ( in setting of hypotension). He was diuresed at [facility], appears euvolemic on exam today. Pt was [...] Aflutter with RVR prior to admission in [facility], treated with amioda rima infusion, maintaining SR [...] admitted with acute dyspnea, respiratory failure to [facility] 10/03 found to be Flu pos itive. [...] sepsis management , fluid resuscitation. EGD at [facility] on 10/05 showed gastritis, duodenitis, linear ulcerations [...] patient was interviewed and examined by attending oilfield plant and field operator, Dr. Khurram Bedoya MD , who is in agreement with above described findings, assessment and plan. Ashleigh Alvarez, [facility] Instructor of Medicine [facility] [place] Pager [phone] I spent 51 minutes in coordination of care and meck-fg-gibd with the patient and/or their s urrogate in which management of CAD, imaging plan and consultation with radiology, pneumonia treatment was discussed Associated attestation - Khurram Bedoya MD - 10/12/2017 3:00 PM PSTCardiology Attendi I have seen and examined Mr. Mckeon and discussed the patient's management [facility] the [facility]. I reviewed the practitioner's note above and agree with the documented f indings and plan of care. KHURRAM BEDOYA MD Director of the [facility] Hypertrophic Cardiomyopathy Explosive Ordnance Technician of Echocardiography Hand Salterpump press operator Division of Cardiovascular Medicine Cristi Sutton - 10/11/2017 12:15 PM PSTTransthoracic echocardiogram completed. Final report to follow. documented in this enc ounter Plan of Treatment + +---------+--------+ + + | Name | Type | Priori | Associated Diagnoses | Order Schedule | | | | ty | | | + +---------+--------+ + + | LINEN GRADER INT | Imaging | Routin | | Tomorrow for 1 | | CORONARY ANGIOGRAM | | e | | Occurrences starting | | | | | | 10/15/2017 until | | | | | | 10/15/2017 | + +---------+--------+ + + | LINEN GRADER EP ICD | Imaging | Routin | [...] | | PST | infarction) ([facility]) | results section. | + +--------+ + + + | CAPILLARY BLOOD | Routin | 10/17/2017 | Non-ST elevation | Results for this | | GLUCOSE (NO CHG), | e | 7:38 AM | (NSTEMI) myocardial | procedure are in the | | POC | | PST | infarction ([facility]) | results section. | + +--------+ + [...] | | PST | infarction) ([facility]) | results section. | + +--------+ + [...] | | PST | infarction ([facility]) | results section. | + +--------+ + [...] | + +--------+ + + + | LINEN GRADER | Routin | 10/15/2017 | | Results [...] | | PST | infarction ([facility]) | results section. | + +--------+ + [...] R[facility] | [address] | [place], [place] | | | RICARDO POINT OF CARE | [address] | [address] | | | TESTS | | | [...] MARQUAM | [address] | [place], [place] | | | CHRISTIE SILVA [facility] | [address] | [address] | | | TESTS | | | [...] Note | + + | Service Account, Knotch In Interface - 10/17/2017 7:51 AM PST [...] [facility] | [address] | [place] [address] | | | SERVICES, CORE | PARK [...] | | | LABORATORY | | | ANGUILLAN | | | SERVICES, | | | [...] + + + + + | [facility] | [address] | [place] [address] | | | SERVICES, ИРИНА | JT [...] At | + + + | STUDY: [place] CHEST 1 VIEW HISTORY: Evaluated lead placement. 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 | | | PROCEDURE ATTENDING: Sophie Darby MD | | | FELLOW: Amarilis Castle MD | | | PROCEDURAL DATA: Procedure: New implant Implanted | | | generator treatment supervisor: Medtronic Implanted leads treatment supervisor: | | | Medtronic Radha-procedure Anticoag: None Presenting rhythm: | | | NSR Existing device under advisory? No Pacemaker | | | dependent: No Method of sedation: Conscious sedation - Anesth | | | provider Response to sedation: Normal Fluoroscopy time (see | | | log): 45-47 minutes MEDICATIONS: See anesthesia log | | | and geochemical laboratory technician log INTAKE AND OUTPUT: 1000 ml / [...] INFORMATION: BiV-ICD pulse generator: | | | Manager Inspection: Medtronic Model number: [id number] Serial | | | number: [id number] RA lead: Manager Inspection: Medtronic | | | Model number: [id number] Serial number: [id number] RV lead: | | | Manager Inspection: Medtronic Model number: [id number] Serial | | | number: [id number] CS lead: Manager Inspection: Medtronic | | | Model number: [id number] Serial number: [id number] MEASURED | | | PARAMETERS: RA lead: [...] Division of Cardiovascular Medicine | | | [facility] Pager [phone] Pursuant to | | | Federal Medicare requirements, I certify that I, Sophie Darby MD, | | | was present for the entire procedure, performed all critical | | | elements, and participated directly in the generation of this | | | report. Sophie Darby MD Cardiovascular Medicine - | | | Electrophysiology [facility] [place] at [facility] | | + + + PROCEDURE NOTE [...] See | | | anesthesia log and geochemical laboratory technician log FLUIDS: In: 300 ml/ Out: 0 [...] HV interval (ms): 75 | | | [place] interval (ms): 180 QRS duration (ms): 130 [...] Division | | | of Cardiovascular Medicine [facility] | | | Pager [phone] Pursuant to Federal Medicare requirements, I certify | | | that I, Sophie Darby MD, was present for the entire procedure, | | | performed all critical elements, and participated directly in the | | | generation of this report. Sophie Darby MD Cardiovascular | | | Medicine - Electrophysiology [facility] [place] at [facility] | | + + + VBG-FULL ABL, POC (10/16/2017 3:55 PM PST) + + + + + + | Component | Value | Ref Range | Performed | Pathologist | | | | | At | Signature | + + + + + + | PH VENOUS, | 7.32 (L) | 7.35 - 7.45 | [facility] - | | | POC | | [...] + + + | EULOGIO R[facility] | [address] | [place], [place] | | | JULIANN SILVA OF [place] | [address] | [address] | | | TESTS | | | [...] R[facility] | [address] | [place], [place] | | | R[facility]ARDO POINT OF CARE | [address] | [address] | | | TESTS | | | [...] [facility] | [address] | [place] [address] | | | SERVICES, CORE | PARK [...] | | | LABORATORY | | | ANGUILLAN | | | SERVICES, | | | [...] | + + + + + | [facility] | [address] | [place] [address] | | | ИРИНА ANTOINE | JT [...] [facility] | [address] | [place], [place] | | | JULIANN SILVA OF CARE | [address] | [address] | | | TESTS | | | [...] DEPT OF | [address] | [place], [place] | | | CARDIOLOGY | [address] | [address] | | + + + + + CARDIAC CATH (10/15/2017 2:11 PM PST) + + | Procedure Note | + + | Tejal Modi MD - 10/15/2017 2:11 PM PST DATE OF PROCEDURE:October 15, | | 2018PERFORMING PHYSICIAN:Tejal Modi [facility] ATTENDING:Mike Bray MDTheramy was no | | [...] 110 mL.FLUOROSCOPY TIME:17.8 minutes.FLUOROSCOPY | | DAP:7406.0 [id number]:1. Left ventricular pressure 91/23 mmHg.2. Aortic | | pressure 93/72 mmHg, mean of 80 mmHg. 3. Heart rate 71 beats per minute.ACCESS:1. | | 14-Chadian Impella sheath in the right femoral artery.2. 7-Chadian sheath in the left | | femoral artery.3. 6-Chadian sheath in the right femoral vein.ESTIMATED BLOOD [...] | micropuncture technique and ultrasound guidance, a 5-Chadian sheath was inserted in the | | right femoral artery and a 6-Chadian sheath was inserted in the right femoral vein. Two | | Perclose devices were deployed in the preclosure method and then the 5-Chadian sheath was | | exchanged over an Amplatz stiff wire for the 14-Chadian Impella sheath. A 5-Chadian | | angled pigtail catheter was then [...] technique and ultrasound guidance and placed a 7-Chadian sheath. A 7-Chadian XB 3.5 guide | | catheter was [...] and a 3.0 x 18 mm Resolute Mercedita drug-eluting stent was advanced over the | [...] and pulled out of the body. The 14-Chadian sheath was | | then removed and [...] with one 3.0 x 18 mm Resolute Mercedita drug-eluting stent. Successful | | percutaneous coronary [...] | | 10/15/2017 13:25:02DT: 10/15/2017 14:11:10Job #: [id number] | |2. Lesion type: C. | |3. [...] |BCN/MODL | | | | | | /[id number] | + + ACT, POC-CCL ONLY (10/15/2017 [...] [facility] | [address] | [place], [place] | | | JULIANN SILVA OF CARE | [address] | [address] | | | TESTS | | | [...] ANA MARIA | [address] | [place], [place] | | | JULIANN SILVA OF [place] | [facility] | [address] | | | TESTS | | | [...] R[facility] | [address] | [place], [place] | | | R[facility]ARDO POINT OF CARE | [address] | [address] | | | TESTS | | | | + + + + + LINEN GRADER EMERGENT/IMMEDIATE PROCEDURE (10/15/2017 11:00 AM PST) + + | Specimen | + + | | + + + + + | Narrative | Performed At | + + + | Procedure | | | performed in the Cardiac Applications Instructor. See procedure notes for details. | | [...] [facility] | [address] | [place], [place] | | | [facility] POINT OF CARE | [facility] | [address] | | | TESTS | | | [...] [facility] | [address] | [place] [address] | | | SERVICES, CORE | PARK [...] | | | LABORATORY | | | ANGUILLAN | | | SERVICES, | | | [...] + + + + + | [facility] | [address] | [place] [address] | | | SERVICES, CORE | PARK [...] + + + + + | [facility] | [address] | [place] [address] | | | ИРИНА ANTOINE | JT [...] | EULOGIO [facility] | [address] | [place], [place] | | | R[facility]ARDO POINT OF CARE | [address] | [address] | | | TESTS | | | [...] | | | LABORATORY | | | ANGUILLAN | | | SERVICES, | | | [...] + + + + + | [facility] | [address] [facility] | [place] [address] | | | SERVICES, CORE | PARK [...] [facility] | [address] | [place] [address] | | | ИРИНА ANTOINE | JT [...] [facility] | [address] | [place], [place] | | | JULIANN SILVA OF [facility] | [address] | [address] | | | TESTS | | | [...] IMPRESSION: No significant tracer uptake within the hhb-mr-owwoqg | | | anterior wall/interventricular septum and [...] significant tracer | | uptake within the unn-yo-rkgitf anterior wall/interventricular septum and apex | | corresponding to same non-perfused areas seen on myocardial rest perfusion scan, | | compatible with nonviable myocardium in these regions. I have personally reviewed the | | images and, if necessary, edited the report. I agree with the report as now presented. | |No significant tracer uptake within the sva-cr-afujve anterior wall/interventricular septum and apex corresponding to [...] [facility] | [address] | [place], [place] | | | JULIANN SILVA OF CARE | [address] | [address] | | | TESTS | | | [...] RODGERS | [address] | [place], [place] | | | JULIANN SILVA OF CARE | [address] | [address] | | | TESTS | | | [...] [facility] | [address] | [place], [place] | | | JULIANN SILVA OF CARE | [address] | [address] | | | TESTS | | | [...] [facility] | [address] | [place], [place] | | | JULIANN SILVA OF CARE | [facility] | [address] | | | TESTS | | | [...] R[facility] | [address] | [place], [place] | | | JULIANN SILVA OF CARE | [address] | [address] | | | TESTS | | | [...] BLU[facility] | [address] | [place], [place] | | | R[facility]ARDO POINT OF CARE | [address] | [address] | | | TESTS | | | [...] [facility] | [address] | [place], [place] | | | JULIANN SILVA OF CARE | [address] | [address] | | | TESTS | | | [...] R[facility] | [address] | [place] | | | JULIANN SILVA OF CARE | [address] | [address] | | | TESTS | | | [...] BLU[facility] | [address] | [place] | | | JULIANN SILVA OF CARE | [address] | [address] | | | TESTS | | | [...] - [facility] | [address] | [place], [place] | | | JULIANN SILVA OF CARE | [address] | [address] | | | TESTS | | | [...] R[facility]GERS | [address] | [place], [place] | | | JULIANN SILVA OF [facility] | [address] | [address] | | | TESTS | | | | + + + + + NM MYOCARDIAL PERFUSION (SPECT) SINGLE AT REST OR STRESS (10/13/2017 11:18 AM PST) + + | Specimen | + + | | + + + + + | Narrative | Performed At | + + + | EXAM: Regadenoson Sestamibi SPECT Myocardial Perfusion Study | [facility] | | 10/13/17 09:54:20 HISTORY: Myocardial infarction [...] R[facility] | [address] | [place], [place] | | | R[facility]ARDO POINT OF CARE | [address] | [address] | | | TESTS | | | [...] [facility] | [address] | [place] [address] | | | SERVICES, CORE | PARK [...] | | | LABORATORY | | | ANGUILLAN | | | SERVICES, | | | [...] | + + + + + | [facility] | [address] | [place] [address] | | | ИРИНА ANTOINE | JT [...] | 70 - 99 mg/dL | [facility] - | | | GLUCOSE, | | [...] R[facility] | [address] | [place], [place] | | | JULIANN SILVA OF CARE | [address] | [address] | | | TESTS | | | [...] + + + + + | [facility] | [address] | [place] [address] | | | SERVICES, CORE | JT [...] R[facility] | [address] | [place] | | | JULIANN SILVA OF [place] | [facility] | [address] | | | TESTS | | | | + + + + + MR CARDIAC COMPREHENSIVE W/O CONTRAST (10/12/2017 12:38 PM PST) + + | Specimen | + + | | + + + + + | Narrative | Performed At | + + + | Report ====== Senior Marketing Engineer: Rodríguez Fortune ([id number])shubham | EULOGIO | | richy [employer] Platemaker: shubham lockhart Fellow: shubham lockhart | RADIOLOGY | | Quilting Machine Operator: shubham lockhart Viewer: shubham lockhart Report Date: | CARDIAC IMAGING | | Oct 2017, 09:22:25 PST Patient ------- Patient: RON MCKEON | | | Acc #: [id number] | | | Ethnicity: N Status: Final [...] | | | Image Quality: Good Scanner Manager Inspection: PageLever Scanner | | | Model: Digg Scanner Serial Number: [id number] Scanner Software | | | Platform: 5.3.15.3.1.0 Staff: Rodríguez Fortune Modality: MR | | | Indication Name: routine Protocol Name: CMR W Flows WO Contrast | | | Findings -------- Non-cardiac findings were reviewed by Dr. Curtis. | | | This exam was terminated prematurely and is lmiited to rectifying operator images. | | | There are [...] - 10/16/2017 9:22 AM PST | | Report======Senior Marketing Engineer: Rodríguez Fortune ([id number]), shubham Rodriguezalyst: shubham | | Lorena: shubham Garciaechnician: shubham Beckwithwer: shubham | | Rosey Date: 16 Oct 2017, 09:22:25 PSTPatient-------Patient: RON MCKEON | | JMedical Record Number: [id number] ID: [id number] #: [id number]: NStatus: | | Final ReportReport Number: [id number]: MaleBirthdate: 1955 (61 yrs)Study Date: 05 | | Oct 2017Study Description: CMR with Flows with ContrastReferring Physician: KHURRAM | | ANASTACIAITSAULOBlood Pressure: /Heart rate:Height (cm): 0Weight (kg): 89BMI (kg/m ): 0BSA | | (m ): 0 (Mosteller Formula)Image Quality: Jazmincansaulo Manager Inspection: SharedReviews | | DestineerScanner Model: Miaozhen SystemscanFanzila Serial Number: [id number] Software Platform: | | 5.3.15.3.1.0Staff: Rodríguez FortuneModality: MRIndication Name: routineProtocol Name: | | CMR W Flows WO ContrastFindings--------Non-cardiac findings were reviewed by | | Ever.This exam was terminated prematurely and is lmiited to rectifying operator images.There are | | bilateral pleural [...] Formula) | |Image Quality: Good | |Scanner Manager Inspection: PageLever | |Scanner Model: Digg | |Scanner Serial Number: [id number] | |Scanner Software Platform: 5.3.15.3.1.0 | |Staff: Rodríguez Fortune | |Modality: MR | |Indication Name: routine | |Protocol Name: CMR W Flows WO Contrast | |Findings | |-------- | |Non-cardiac findings were reviewed by Dr. Curtis. | |This exam was terminated prematurely and is lmiited to rectifying operator images. | |There are bilateral pleural [...] MARIA | [address] | [place], [place] | | | JULIANN SILVA OF CARE | [address] | [address] | | | TESTS | | | [...] LABORATORY | [address] | [place] [address] | | | SERVICES, CORE | JT [...] [facility] | [address] | [place] [address] | | | ИРИНА ANTOINE | JT [...] | | | LABORATORY | | | ANGUILLAN | | | SERVICES, | | | [...] | + + + + + | [facility] | [address] [facility] [facility] | [place] [address] | | | ARASH, ИРИНА | JT [...] EULOGIO CAL[facility]RES[facility] | [address] | [place] [address] | | | SERVICES, ИРИНА | JT [...] [facility] | [address] | [place], [place] | | | RICARDO POINT OF CARE | [address] | [address] | | | TESTS | | | [...] EULOGIO [facility] | [address] | [place] | | | RICARDO [place] OF [facility] | [address] | [address] | | | TESTS | | | [...] EULOGIO on: 10/12/2017 8:10:02 AM PST by: [id number] | | + + + + + + + + | Performing | Address | City/State/Zipcode | Phone Number | | Organization | | | | + + + + + | [facility] - | [address] | [place] [address] | | | [place] | | | | + + + [...] + + + + + | [facility] | [address] | [place] [address] | | | ИРИНА ANTOINE | JT [...] [facility] | [address] | [place] [address] | | | SERVICES, CORE | PARK [...] [facility] | [address] | [place] [address] | | | SERVICES, ИРИНА | JT [...] | [facility] | | considered for monitoring medical terminologist glycemic control in patients with: | LABORATORY [...] | fructosamine should be considered for monitoring correction glycemic | | | control in patients [...] | + + + + + | [facility] | [address] | [place] [address] | | | SERVICES, SPECIAL | JT [...] | + + + | [facility] | [facility] | | [facility] Adult Echocardiography | CARDIOLOGY | | Laboratory [address] [place] [address], | | | [place] [address] Pt Name: | | | RON MCKEON Study Date/Time 10/11/2017 / 11:47:35 | | | AMMRN: [id number] Most recent | | | prior: 03/30/2017Acc #: [id number] No. | | | previous echos: 4DOB: 1955 61 years Heart | | | Rate: 84 bpmHeight: 69.0 in | | | Blood Pressure: 115/68 mm/HgWeight: 196.0 | | | lb Gender: | | | MBSA: 2.05 m2 Order | | | ID: [id number] Buffing Machine Operator: Shahab Sutton [facility] | | | Referring Provider: Kimmy [...] | | | presents on transfer from [facility] for consideration of complex PCI | | [...] | | Ao (prox) 3.70 cm 18.1 mm/s3Ypnfzcmhxi of | | | chamber size and geometry is accomplished through the incorporation of | | | linear, volumetric, and indexed values Wall Scoring: Report | | | electronically signed by: [id number] Khurram Bedoya MD (10/11/2017, | | | 12:59:49 PM) Final (Updated) | | | Final (Updated) | | + + + + + | Procedure Note | + + | Interface, Cardiology Results - 10/11/2017 1:00 PM [facility] | | [facility] Echocardiography Laboratory [address] [place] [address] | | [place], [place] [address] Pt Name: RON Chaudhary | | MIKE Study Date/Time 10/11/2017 / 11:47:35 AMMRN: [id number] Most | | recent prior: 03/30/2017Acc #: [id number] No. previous echos: 4DOB: | | 1955 61 years Heart Rate: 84 bpmHeight: 69.0 in Blood | | Pressure: 115/68 mm/HgWeight: 196.0 lb Gender: MBSA: | | 2.05 m2 Order ID: [id number] Buffing Machine Operator: Shahab Sutton RDReferring | | Provider: [...] use disorder who presents on transfer from [facility] | | for consideration of complex PCI [...] Ao (prox) | | 3.70 cm 18.1 mm/o7Jwejajxzmb of chamber size and geometry is accomplished | | through the incorporation of linear, volumetric, and indexed values Wall Scoring: Report | | electronically signed by: [id number] Khurram Bedoya MD (10/11/2017, 12:59:49 PM) | [...] | | | |Report electronically signed by: [id number] Khurram Bedoya MD (10/11/2017, 12:59:49 | |PM) | | | | | | | | Final (Updated) | + + + + + + + | Performing | Address | City/State/Zipcode | Phone Number | | Organization | | | | + + + + + | [facility] | [address] | [place], [place] | | | CARDIOLOGY | [address] | [address] | | + + + + + X-RAY PORTABLE CHEST 1 VIEW (10/11/2017 11:24 AM PST) + + | Specimen | + + | | + + + + + | Narrative | Performed At | + + + | STUDY: KY CHEST 1 VIEW COMPARISON: 03/21/17. HISTORY: Cough. [...] Note | + + | Service Account, QuyenSchoolwires Res In Interface - 10/11/2017 1:51 PM PST STUDY: [place] CHEST 1 | | VIEW COMPARISON: 03/21/17.HISTORY: [...] E[facility] LAB[facility]ATORY | [address] | [place] [address] | | | SERVICES, CORE | PARK [...] + + + + + | [facility] | [address] | [place] [address] | | | ИРИНА ANTOINE | JT [...] | | | LABORATORY | | | ANGUILLAN | | | SERVICES, | | | [...] + + + + + | [facility] | [address] | [place] [address] | | | SERVICES, ИРИНА | JT [...] [facility] | [address] | [place] [address] | | | SERVICES, CORE | PARK [...] [facility] | [address] | [place] [address] | | | ИРИНА ANTOINE | JT [...] | + + + + + | [facility] | [address] [facility] | [place] [address] | | | SERVICES, CORE | PARK [...] [facility] | [address] | [place] [address] | | | SERVICES, CORE | JT [...] DEPT OF | [address] | [place], [place] | | | CARDIOLOGY | [address] | [address] | | + + + + + [...] artery disease involving inupiat coronary artery of inupiat heart, angina | | presence unspecified | [...] of unspecified type of vessel, | | inupiat or graft | + + | Paroxysmal atrial flutter (HCC) Atrial flutter | + + | Chronic systolic congestive heart failure (HCC) Chronic systolic heart failure | + + | Encounter for insertion of cardiac resynchronization therapy defibrillator (QUALITY ASSURANCE AUDITOR-D) | + + | Influenza, pneumonia Influenza [...] PST | | | | | Until [facility] 10/15/17 at 1220 | | | [...]
--- OUTSIDE RECORDS SUMMARY | ~2019-02-13 | XMS | Encounter Summary ---
Demographics + + + | Address | [address] | | | [place] [address] | + + + | Home Phone | | + + + | Preferred Language | Unknown | + + + | Marital Status | | + + + | Evangelical Affiliation | NRP | + + + [...] | + + + + + | Veince Will | ECON | [address] | | | | | [place] [address] | | + + + + + Care Team Providers + +------+ + | Care Economic History Teacher Name | Role | Phone | [...] Rocha | | | | | | [facility] | | | | | | [place], [place] | | | | | | [address] | | | +--------+ + + + [...]
--- OUTSIDE RECORDS SUMMARY | ~2019-02-13 | XMS | Encounter Summary ---
Demographics + + + | Address | [address] | | | [place] [address] | + + + | Home Phone | | + + + | Preferred Language | Unknown | + + + | Marital Status | | + + + | Quaker Affiliation | NRP | + + + | Race | White | + + + | Ethnic Group | Not or | + + + Author + + + | Author | [facility] | + + + | Organization | [facility] | + + + | Address | Unknown | + + + | Phone | Unavailable | + + + Support + + + + + | Name | Relationship | Address | Phone | + + + + + | [place] | ECON | [address] | | | | | [place] [address] | | + + + + + Care Team Providers + +------+ + | [employer] Operations Supervisor Name | Role | Phone | + +------+ + | Chato Matson MD | PCP | | + +------+ + Encounter Details +--------+ + + + + | Date | Type | Department | Care Team | Description | +--------+ + + + + | 10/11/ | Procedure | Diagnostic Imaging | | | | 2018 | Pass | Services at [facility] | | | | | | [address] | | | | | | [facility] | | | | | | Mailcode: [id number] | | | | | | [place] | | | | | | [place], [place] | | | | | | [id number] | | | | | | [phone] | | | +--------+ + + + [...]
--- OUTSIDE RECORDS SUMMARY | ~2019-02-13 | XMS | Encounter Summary ---
Demographics + + + | Address | [address] | | | [place] [address] | + + + | Home Phone [...] | | | | | [place] [address] | | + + + + + Care Team Providers + +------+ + | Care Anatomy Teacher Name | Role | Phone | [...] | DECANNULATION | | 2017 | | [facility] | [address] | | | | | Admitting Desk | Tabitha Alicea DERBY, | | | | | Located on the | [place] [address] | | | | | floor [address] [facility] | [phone] | | | | | [address] | | | | | | [place], [place] | | | | | | [address] | | | +--------+---------+ + + + [...] PM PDT CLINICAL HOSPITALIST DISCHARGE SUMMARY [facility] Discharging Provider: Aria Rojas MD [...] follow up ludmila miller with a local char conveyor tender in [place]. #Acute cardiogenic shock in the setting ofSTEMI [...] 44 to 32 during first day at [facility] , with addition decline to [...] (noted on o [facility] records). Patient on [place] 10/325 q8 as outpatient. Was receiving scheduled [...] Number [facility] Yes [phone] [place] [address] [phone] Medina Roger RN 04/02/2017 11:31 Medina Roger RN, 04/02/2017 11:28 AM: Spoke with Latricia, 7 day auth # [id number] has been provided. Contacted Tanisha at facility [phone], arranging anticipated medicaid transport by stretcher at 2 pm today. Spoke with patient and souse concerning dc; they are both in agreement. Medina Roger RN, 04/02/2017 9:20 AM: Contacted Latricia Landry [phone] referencing auth# for SNF placement. Medina Roger RN, 04/01/2017 11:42 AM: Spoke with Malathi [phone], at facility admissions. Patient is accepted to facility. Prov ided information for information operator bearer systems with [facility] Fed Latricia Landry [phone], Tanisha moncada pursue auth and get back to me. F&MS working with patient and family to add Medicaid ser vices to benefits. When added patient will have travel benefit. CM contacted Shahab Holman re [employer] training. Tamia Van, RN, 03/30/2017 1:21 PM: Received VM from Emily Terrell CM with [facility] to send referral to this location . Referral made, awaiting response. Follow Up: Schedule the following appointment(s) when you get home Follow up with [facility] . Specialties: Custodial Facility, Intermediate Care Facility Contact information [address] [place] [address] Follow up with LAUREN CHESTER MD. Go on 04/07/2017. Specialty: Cardiology Why: at 8:30 AM to establish Cardiology follow up Contact information [facility] [address] [address] Aria Rojas MD Division of Hospital Medicine [facility] [place] I spent 60 minutes on discharge activities on the day of discharge, including counseling of the patient and his regarding his discharge plan and in coordination of care on the ma rd with nursing, pharmacy, and Heart Failure.Electronically [...] and chronic pain who was transferred to [facility] on 03/15 s/p STEMI with [...] will need [facility] Vest follow up with char conveyor tender in [place] on discharge - appr [facility] cardiology assistance with coordinating. -Will f/u further [...] hematoma, but possibly some candidal infection/intertrigo. On [place] 10 Q8H as an outp atient. -Continue [...] 44 to 32 during first day at [facility], with addition decline to 24 [...] Aria Rojas MD Division of Hospital Medicine [facility] Pager [phone] I spent 36 minutes on the patient [...] and chronic pain who was transferred to [facility] on 03/15 s/p STEMI with [...] will need Life Vest follow up with char conveyor tender in [place] on discharge - appr [facility] cardiology assistance with coordinating. Hyperkalemia Resolved with [...] hematoma, but possibly some candidal infection/interrigo. On [place] Q8H as an outpa tient. -Continue nystatin [...] discharge. -CM looking for skilled placement in [place] near patient's home; appreciate assistance At risk for malnutrition Very little PO intake but reportedly improving. Previously had dobhoff feeding tube in the CVICU.Nutrition assistance appreciated. -Calorie count ongoing -Encouraging PO intake Normocytic anemia Hct dropped abruptly from 44 to 32 during first day at [facility], with addition decline to 24 [...] Aria Rojas MD Division of Hospital Medicine [facility] [place] Pager [phone] I spent 36 minutes on the patient encounter today, >50% in counseling of the patient's on the above plan of care and in coordination of care on the arizmendi with nursing and Heart Fa ilure. Ariana Ivy DO - 03/30/2017 5:49 PM PDT CLINICAL HOSPITALIST SERVICE PROGRESS NOTE PATIENT'S NAME/MRN: Ron Mckeon/[id number] HOSPITAL DAY: #15 24-HOUR EVENTS & SUBJECTIVE: -patient complained of typical anginal chest pain and had STEMI code last night, anterior S T elevation on serial EKGs, given 325mg ASA, started on heparin drip (had been turned off fo r JAVON thrombus yesterday afternoon with warfarin therapeutic), patient went to the slab stripper -on angiography, interventionalists noted "patent stent traversing [...] daily - Patient will follow up with char conveyor tender in [place] on discharge; appreciate cardiolo gy assistance with [...] stenosis (noted on o [facility]side records, on [place] q8 as outpatient) Improved today -continue oxycodone [...] discharge. -CM looking for skilled placement in [place] near patient's home; appreciate assistance #Risk for malnutrition Very little PO intake, improving today. Previously had dobhoff feeding tube in the CVICU.Nu trition assistance appreciated. -Calorie count ongoing -Encouraging PO intake #Anemia, normocytic Pt noted to have anemia on H&P. Hct dropped abruptly from 44 to 32 during first day at [facility] , with addition decline to [...] [facility] bed Ariana Bose DO Unit Secretaryslots manager Clinical Hospitalist and Medicine Teaching Service Division of Hospital Medicine [facility] Pager [phone] [facility] DEPARTMENT: Hosp- [id number] Place of Service: - Date of Service: 03/26/2017 CSN: [id number] Modifiers:GC Resident Involved: Yes Suggested CPT: 73103 Subsequent Visit Detailed/High complexity 35 min Cristi [...] significant recent OH, we activated the slab stripper. Patient received 325 mg ASA at bedside and was briefly on heparin which has since been disc ontinued. Per cardiology will continue daily 81 mg ASA, plavix and warfarin. Continue to t rend troponins as well. I spent 30 minutes with this patient with >50% of the time evaluating patient at the [facility] e on numerous occasions, evaluating studies and coordinating care w/ cardiology.Electronical ly signed by Ivette Chaudhry MD at 03/30/2017 6:24 AM Gerson Oseguera MD - 03/30/2017 4:31 AM PDTCardiology Preliminary Procedure Note (Full report to follow) Primary Care Provider: Jamal Guerrero MD Referring Provider: No Referring Provider Per Patient Spray Technician Staff: Katarina Ngo M.D. Procedure(s): Coronary Angiography [...] Complications: None Hemostasis: Manual compression in slab stripper. Site: [facility] Recommendations: Patient Status: Inpatient Usual post cath care. Ariana Ivy D O - 03/29/2017 9:30 AM PDT CLINICAL HOSPITALIST SERVICE PROGRESS NOTE PATIENT'S NAME/MRN: Ron Mckeon/[id number] HOSPITAL DAY: #14 24-HOUR EVENTS & SUBJECTIVE: [...] 2 Units, 2 Units, subcutaneous, Q12H (Scheduled), Ginams geno Alvarado MD, 2 Units at 03/28/172206 [...] stenosis (noted on o utside records, on [place] 10/ q8 as outpatient) -continue oxycodone 10mg [...] 44 to 32 during first day at [facility] , with addition decline to [...] arm, midline left arm Ariana Bose DO Unit Secretaryslots manager Clinical Hospitalist and Medicine Teaching Service Division of Hospital Medicine [facility] Pager [phone] [facility] DEPARTMENT: Hosp- [id number] Place of Service: - Date of Service: 03/26/2017 CSN: [id number] Modifiers:GC Resident Involved: Yes Suggested CPT: 81481 Subsequent Visit Detailed/High complexity 35 min Ariana Ivy DO - 03/28/2017 8: 06 AM PDT CLINICAL HOSPITALIST SERVICE PROGRESS NOTE PATIENT'S NAME/MRN: Ron Mckeon/[id number] HOSPITAL DAY: #13 24-HOUR EVENTS & SUBJECTIVE: [...] stenosis (noted on o [facility]side records, on [place] 10 q8 as outpatient) Improving L groin [...] 44 to 32 during first day at [facility] , with addition decline to [...] arm, midline left arm Ariana Bose DO Unit Secretaryslots manager Clinical Hospitalist and Medicine Teaching Service Division of Hospital Medicine [facility] Pager [phone] [facility] DEPARTMENT: Hosp- [id number] Place of Service: - Date of Service: 03/26/2017 CSN: [id number] Modifiers:GC Resident Involved: Yes Suggested CPT: 90398 Subsequent Visit Detailed/High complexity 35 min Ariana [...] 44 to 32 during first day at [facility] , with addition decline to [...] arm, midline left arm Ariana Bose DO Unit Secretaryslots manager Clinical Hospitalist and Medicine Teaching Service Division of Hospital Medicine [facility] Pager [phone] [facility] DEPARTMENT: Hosp- [id number] Place of Service: - Date of Service: 03/26/2017 CSN: [id number] Modifiers:GC Resident Involved: Yes Suggested CPT: 92465 Subsequent Visit Detailed/High complexity 35 min Chapis [...] 44 to 32 during first day at [facility] , with addition decline to [...] arm, midline left arm Ariana Bose DO Unit Secretaryslots manager Clinical Hospitalist and Medicine Teaching Service Division of Hospital Medicine [facility] Pager [phone] [facility] DEPARTMENT: Hosp- [id number] Place of Service: - Date of Service: 03/26/2017 CSN: [id number] Modifiers:GC Resident Involved: Yes Suggested CPT: 71992 Subsequent Visit Detailed/High complexity 35 min Wan Cano MD - 03/25/2017 3:07 PM PDT . Cardiovascular Intensive Care Unit Attending Progress Note CVICU D2 Assigned #[id number] ICU Admission Reason Most Recent Value ICU [...] ANY X2 placed in outs surinder slab stripper along with IABP. Arrived in cardiogenic shock, [...] Pager Mellisa Haji MD Admitting Provider Cardiology 59109 Zelalem Del Toro MD ICU PM Attending Anesthesiology 67926 Code Status Code Status Full Code The Advanced Care Note for this patient can be found under the notes tab in chart review. Quality section Reardon necessity reviewed: Hourly/Accurate measurement of urinary output for clinical manage ment of critically ill patients Wan Deleon MD, JOHN, ERVIN Cardiovascular Intensive Care Unit [address] [address] I have spent a total of 38 [...] xceptions/additions as noted. Date of Service: 03/25/2017 [facility] DEPARTMENT: ANE ICU CARDIAC Place of Service:- Inpatient CSN: [id number] Suggested Modifier: GC - Resident Involved Suggested CPT: TO ACCOUNTS ADMINISTRATOR Jose Ramon Khan MD - 03/24/2017 10:54 AM PDT . Cardiovascular Intensive Care Unit Team Progress Note CVICU D2 Assigned #[id number] ICU Admission Reason Most Recent Value ICU [...] ANY X2 placed in outs surinder slab stripper along with IABP. Arrived in cardiogenic shock, [...] Plan Patient went into VFib during slab stripper procedure at [facility]. Was shocked 17 times Targeted temperature [...] Patient was difficult intubation at outside slab stripper. -secretions improving, cough strong -s/p 7 days [...] Pager Mellisa Haji MD Admitting Provider Cardiology 78385 Zelalem Del Toro MD ICU PM Attending Anesthesiology 62936 The Advanced Care Note for this patient [...] Ramon Alvarado MD Author:Jose Ramon Alvarado MD [address] [address]Scrwhhvpnlvrkj signed by Jose Ramon Alvarado MD at 03/24/2017 11:00 AM Wan Cano MD - 03/24/2017 9:47 AM PDTFormatting of this note might be diff erent from the original. Cardiovascular Intensive Care Unit Attending Progress Note CVICU D2 Assigned #[id number] ICU Admission Reason Most Recent Value ICU [...] ANY X2 placed in outs surinder slab stripper along with IABP. Arrived in cardiogenic shock, [...] Pager Mellisa Haji MD Admitting Provider Cardiology 36339 Zelalem Del Toro MD ICU PM Attending Anesthesiology 62135 Code Status Code Status Full Code The Advanced Care Note for this patient can be found under the notes tab in chart review. Quality section Reardon necessity reviewed: Hourly/Accurate measurement of urinary output for clinical manage ment of critically ill patients Wan Deleon MD, JOHN, ERVIN Cardiovascular Intensive Care Unit [address] [address] I have spent a total of 42 [...] xceptions/additions as noted. Date of Service: 03/24/2017 [facility] DEPARTMENT: ANE ICU CARDIAC Place of Service:- Inpatient CSN: [id number] Suggested Modifier: GC - Resident Involved Suggested CPT: TO ACCOUNTS ADMINISTRATOR Author:Wan Deleon Md, MD [address] [address]Kpxgkdqsfyslqk signed by Wan Deleon MD at 03/24/2017 9:49 AM PDTToTamia lieberman PA-C - 03/23/2017 11:54 PM PDTFormatting of this note might be diff erent from the original. Cardiovascular Intensive Care Unit Clinical Update Note Team: D2 Team Pager: [phone] Attending: Katey Pt Name: Ron Mckeon ID: [...] ANY X2 placed in outs surinder slab stripper along with IABP. Arrived in cardiogenic shock, [...] Unit Team Progress Note CVICU D2 Assigned #[id number] ICU Admission Reason Most Recent Value ICU [...] ANY X2 placed in outs surinder slab stripper along with IABP. Arrived in cardiogenic shock, [...] Plan Patient went into VFib during slab stripper procedure at [facility]. Was shocked 17 times Targeted temperature [...] Patient was difficult intubation at outside slab stripper. -fevering nightly, cultures negative, WBC stable -secretions [...] Pager Mellisa Haji MD Admitting Provider Cardiology 38096 The Advanced Care Note for this patient [...] Ramon Alvarado MD Author:Jose Ramon Alvarado MD [address] [address] [place] [address]Lqxyzsujfnsnic signed by Jose Ramon Alvarado MD at 03/23/2017 11:41 AM Wan Cano MD - 03/23/2017 9:51 AM PDTFormatting of this note might be diff erent from the original. Cardiovascular Intensive Care Unit Attending Progress Note CVICU D2 Assigned #[id number] ICU Admission Reason Most Recent Value ICU [...] ANY X2 placed in outs surinder slab stripper along with IABP. Arrived in cardiogenic shock, [...] Pager Mellisa Haji MD Admitting Provider Cardiology 18337 Code Status Code Status Full Code The [...] JOHN, ERVIN Cardiovascular Intensive Care Unit [address] [address] I have spent a total of 44 [...] xceptions/additions as noted. Date of Service: 03/23/2017 [facility] DEPARTMENT: [facility] ICU CARDIAC Place of Service:- Inpatient CSN: [id number] Suggested Modifier: GC - Resident Involved Suggested CPT: TO ACCOUNTS ADMINISTRATOR Tamia De La Paz PA-C - 03/22/2017 7:58 PM PDT . Cardiovascular Intensive Care Unit Clinical Update Note Team: D2 Team Pager: [phone] Attending: Abdulaziz Merrill Name: Ron Mckeon ID: [...] Unit Attending Progress Note CVICU D2 Assigned #[id number] ICU Admission Reason Most Recent Value ICU [...] Pager Mellisa Haji MD Admitting Provider Cardiology 84787 Code Status Code Status Full Code Quality section A-Line necessity reviewed: Mqnm-dt-hhma blood pressure monitoring Reardon necessity reviewed: Hourly/Accurate [...] Date of Service: 03/22/2017 Author:Anurag Ashby MD [address] [address]Jcxawzwzozfzju signed by Anurag Ashby MD at 03/22/2017 11:07 AM P Macho Sellers MD - 03/22/2017 11:00 AM PDT Cardiovascular Intensive Care Unit Team Progress Note CVICU D2 Assigned #[id number] ICU Admission Reason Most Recent Value ICU [...] Plan Patient went into VFib during slab stripper procedure at [facility]. Was shocked 17 times Targeted temperature [...] Patient was difficult intubation at outside slab stripper. -vanc zosyn stopped 03/17 -fever 38.3 last [...] team members Provider Role Specialty Pager Mellisa Haij MD Admitting Provider Cardiology 53085 This patient does not have an Advanced Care Note for this Admission. Please use the Goal of care section of your ICU navigator to document the advanced care discussion. Quality section A-Line necessity reviewed: Kqpg-ht-qeuv blood pressure monitoring Reardon necessity reviewed: Hourly/Accurate measurement of urinary output for clinical manage ment of critically ill patients FAST HUG Feeding: Tube Feeds: Replete @ 55 mL/hr Analgesia: APAP, hydromorphone PRN Sedation: N/A Thromboprophylaxis: Heparin infusion Head of Bed: Head of Bed >30 degrees Ulcer Prophylaxis: Famotidine Glycemic Control: insulin infusion Created by Macho Gaytan MD Author:Macho Gaytan MD [address] [address]Awtmtvyuwiloyt signed by Macho Gaytan MD at 03/23/2017 12:35 PM PDTT Tamia leon PA-C - 03/21/2017 7:02 PM PDTFormatting of this note might be different f rom the original. Cardiovascular Intensive Care Unit Clinical Update Note Team: D2 Team Pager: [phone] Attending: Abdulaziz Merrill Name: Ron Mckeon ID: [...] Opens eyes, nods head. Follows commands for rn wound and Plan: Hospital Problems Priority POA Head/Neck [...] Unit Team Progress Note CVICU D2 Assigned #[id number] ICU Admission Reason Most Recent Value ICU [...] Plan Patient went into VFib during slab stripper procedure at [facility]. Was shocked 17 times Targeted temperature [...] Patient was difficult intubation at outside slab stripper. -vanc zosyn stopped 03/17 -fever 38.3 last [...] Pager Mellisa Haji MD Admitting Provider Cardiology 88837 This patient does not have an Advanced Care Note for this Admission. Please use the Goal of care section of your ICU navigator to document the advanced care discussion. Quality section A-Line necessity reviewed: Koou-pc-mnvp blood pressure monitoring CVC necessity reviewed: Hemodynamic [...] by Macho Gaytan MD Author:Macho Gaytan MD [address] [address]Hlnkzulvwpsfjk signed by Macho Gaytan MD at 03/21/2017 1:43 PM PDTM Anurag coates MD - 03/21/2017 12:22 PM PDT Cardiovascular Intensive Care Unit Attending Progress Note CVICU D2 Assigned #[id number] ICU Admission Reason Most Recent Value ICU [...] Pager Mellisa Haji MD Admitting Provider Cardiology 89296 Code Status Code Status Full Code Quality section A-Line necessity reviewed: Akwa-ox-gzvi blood pressure monitoring CVC necessity reviewed: Plan [...] Date of Service: 03/21/2017 Author:Anurag Ashby MD [address] [address] [place] [address]Wcenquyrpgxcnh signed by Anurag Ashby MD at 03/21/2017 12:22 PM P Jose Ramon Coburn MD - 03/20/2017 12:36 PM PDTFormatting of this note might be differen t from the original. Cardiovascular Intensive Care Unit Team Progress Note CVICU D2 Assigned #[id number] ICU Admission Reason Most Recent Value ICU [...] Plan Patient went into VFib during slab stripper procedure at [facility]. Was shocked 17 times Targeted temperature [...] Patient was difficult intubation at outside slab stripper. -vanc zosyn stopped 03/17 -fever 38.3 last [...] Pager Mellisa Haji MD Admitting Provider Cardiology 15382 Quality section A-Line necessity reviewed: Wtzf-gx-rxrr blood pressure monitoring CVC necessity reviewed: Hemodynamic [...] Ramon Alvarado MD Author:Jose Ramon Alvarado MD [address] [address]Zipjyekvnfhzpj signed by Jose Ramon Alvarado MD at 03/20/2017 12:49 PM PDTMoulton, Anurag Soni MD - 03/20/2017 12:18 PM PDTFormatting of this note might be differen t from the original. Cardiovascular Intensive Care Unit Attending Progress Note CVICU D2 Assigned #[id number] ICU Admission Reason Most Recent Value ICU [...] Pager Mellisa Haji MD Admitting Provider Cardiology 24968 Code Status Code Status Full Code Quality section A-Line necessity reviewed: Tzwy-zw-cpme blood pressure monitoring CVC necessity reviewed: Medication [...] as noted. Date of Service: 03/20/2017 Author:Anurag Ahsby MD [address] [address]Gaciqijursalbj signed by Anurag Ashby MD at 03/20/2017 12:18 PM P Raul Conte MD - 03/19/2017 11:01 PM PDTFormatting of this note might be different fro m the original. Cardiovascular Intensive Care Unit Attending Progress Note CVICU D2 Assigned #[id number] ICU Admission Reason Most Recent Value ICU [...] Pager Mellisa Haji MD Admitting Provider Cardiology 11617 Code Status Code Status Full Code Quality section A-Line necessity reviewed: Cwen-ls-kkhi blood pressure monitoring CVC necessity reviewed: Hemodynamic [...] Date of Service: 03/19/2017 Author:Raul Wei MD [address] [address] [place] [address]Amhgwxyillnxzm signed by Raul Wei MD at 03/19/2017 11:01 PM PD TMillerJose Ramon MD - 03/19/2017 4:49 PM PDT Cardiovascular Intensive Care Unit Team Progress Note CVICU D2 Assigned #[id number] ICU Admission Reason Most Recent Value ICU [...] Plan Patient went into VFib during slab stripper procedure at [facility]. Was shocked 17 times Targeted temperature [...] Patient was difficult intubation at outside slab stripper. -vanc zosyn stopped 03/17 -fever 38.3 03/17 [...] Pager Mellisa Haji MD Admitting Provider Cardiology 05257 Quality section A-Line necessity reviewed: Eazg-yp-ikfy blood pressure monitoring CVC necessity reviewed: Hemodynamic monitoring Reardon necessity reviewed: Hourly/Accurate measurement of urinary output for clinical manage ment of critically ill patients FAST HUG Feeding: TFs Analgesia: multimodal Sedation: propofol Thromboprophylaxis: Heparin infusion Head of Bed: Head of Bed >30 degrees Ulcer Prophylaxis: protonix Glycemic Control: insulin infusion Created by Jose Ramon Alvarado MD Author:Jose Ramon Alvarado MD [address] [address]Mryzuhqixmqhbc signed by Jose Ramon Alvarado MD at 03/19/2017 4:54 PM Lee Fernandez MD - 03/19/2017 2:22 PM PDTFormatting of this note might be different fr om the original. . Extracorporeal Life Support Service Daily Progress Note Pager #[phone] Type: Veno-Arterial (CPT 43322 or [phone]) Date of insertion: 03/15/2017 Diagnosis:Cardiogenic shock Dressing [...] Unit Attending Progress Note CVICU D2 Assigned #[id number] ICU Admission Reason Most Recent Value ICU [...] Pager Mellisa Haji MD Admitting Provider Cardiology 07258 Code Status Code Status Full Code Quality section A-Line necessity reviewed: Auiy-tz-rceg blood pressure monitoring CVC necessity reviewed: Medication [...] Date of Service: 03/19/2017 Author:Anurag Ashby MD [address] P DTJose Ramon Alvaraod MD - 03/18/2017 12:56 PM PDTFormatting of this note might be differen t from the original. Cardiovascular Intensive Care Unit Team Progress Note CVICU D2 Assigned #[id number] ICU Admission Reason Most Recent Value ICU [...] Plan Patient went into VFib during slab stripper procedure at [facility]. Was shocked 17 times Targeted temperature [...] Patient was difficult intubation at outside slab stripper. -vanc zosyn stopped today Abnormal CK Unknown [...] Pager Mellisa Haji MD Admitting Provider Cardiology 55034 Quality section A-Line necessity reviewed: Mnuq-hd-xlow blood pressure monitoring CVC necessity reviewed: Hemodynamic monitoring Reardon necessity reviewed: Hourly/Accurate measurement of urinary output for clinical manage ment of critically ill patients FAST HUG Feeding: trickle feeds Analgesia: multimodal Sedation: propofol Thromboprophylaxis: Heparin infusion Head of Bed: Head of Bed >30 degrees Ulcer Prophylaxis: nexium Glycemic Control: insulin infusion Created by Jose Ramon Alvarado MD Author:Jose Ramon Alvarado MD [address] [address]Ikycxefluigxuh signed by Jose Ramon Alvarado MD at 03/18/2017 1:27 PM PDTMoulton, Anurag Soni MD - 03/18/2017 11:56 AM PDTFormatting of this note might be differen t from the original. Cardiovascular Intensive Care Unit Attending Progress Note CVICU D2 Assigned #[id number] ICU Admission Reason Most Recent Value ICU [...] Pager Mellisa Haji MD Admitting Provider Cardiology 86376 Code Status Code Status Full Code Quality section A-Line necessity reviewed: Bixm-ug-zevn blood pressure monitoring CVC necessity reviewed: Medication [...] Date of Service: 03/18/2017 Author:Anurag Ashby MD [address] [id number] signed by Anurag Ashby MD at 03/18/2017 11:59 AM Lee Prince MD - 03/18/2017 11:37 AM PDTFormatting of this note might be different from nissa suh original. . Extracorporeal Life Support Service Daily Progress Note Pager #[phone] Type: Veno-Arterial (CPT 39460 [place] 463[address]) Diagnosis:Cardiogenic shock Dressing changed: no Dressing Changed [...] Life Support Service Daily Progress Note Pager #[phone] Type: Veno-Arterial (CPT [address]7617 or 299[address]) Date of insertion: 03/15/2017 Diagnosis:Cardiogenic shock Dressing [...] Unit Attending Progress Note CVICU D2 Assigned #[id number] ICU Admission Reason Most Recent Value ICU [...] Pager Mellisa Haji MD Admitting Provider Cardiology 05052 Quality section A-Line necessity reviewed: Yxol-xs-awkb blood pressure monitoring CVC necessity reviewed: Rapid [...] Date of Service: 03/17/2017 Author:Raul Wei MD [place] [address] [place] [address]Ektpifwhtemffn signed by Raul Wei MD at 03/17/2017 9:20 PM PD Anurag Kaba MD - 03/17/2017 1:58 PM PDTFormatting of this note might be different fro m the original. Cardiovascular Intensive Care Unit Attending Progress Note CVICU D2 Assigned #[id number] ICU Admission Reason Most Recent Value ICU [...] Pager Mellisa Haji MD Admitting Provider Cardiology 28815 Quality section A-Line necessity reviewed: Hvyk-jm-ywok blood pressure monitoring CVC necessity reviewed: Medication [...] Date of Service: 03/17/2017 Author:Anurag Ashby MD [address] [address]Yfqmmralsatpvo signed by Anurag Ashby MD at 03/17/2017 2:00 PM P Mauri Calderon - 03/17/2017 1:01 PM PDTTransthoracic echocardiogram completed. Final r eport to follow. Teddy Ibrahim DO, MS - 03/17/2017 10:00 AM PDT Cardiovascular Intensive Care Unit Team Progress Note CVICU D2 Assigned #[id number] ICU Admission Reason Most Recent Value ICU [...] Plan Patient went into VFib during slab stripper procedure at [facility]. Was shocked 17 times Targeted temperature [...] Patient was difficult intubation at outside slab stripper. -vanc zosyn stopped today Abnormal CK Unknown [...] Pager Mellisa Haji MD Admitting Provider Cardiology 01231 This patient does not have an Advanced Care Note for this Admission. Please use the Goal of care section of your ICU navigator to document the advanced care discussion. Quality section A-Line necessity reviewed: Vcny-oo-pnwu blood pressure monitoring CVC necessity reviewed: Hemodynamic monitoring Reardon necessity reviewed: Hourly/Accurate measurement of urinary output for clinical manage ment of critically ill patients FAST HUG Feeding: Tube Feeds Analgesia: apap, oxy, hm Sedation: propofol Thromboprophylaxis: Heparin infusion Head of Bed: Head of Bed Flat Ulcer Prophylaxis: Pantoprazole Glycemic Control: insulin infusion Created by Teddy Kee Do, MS [facility] DEPARTMENT: [facility] ICU CARDIAC Place of Service:- Inpatient CSN: [id number] Suggested Modifier: GC - Resident Involved Suggested CPT: TO ACCOUNTS ADMINISTRATOR Author:Teddy Kee Do, MS [address] [address]Cadaldnoffxfyc signed by Teddy Kee DO, MS at 03/17/2017 6:35 PM PDTRaul Wei MD - 03/16/2017 7:38 PM PDT Cardiovascular Intensive Care Unit Attending Progress Note CVICU D2 Assigned #[id number] ICU Admission Reason Most Recent Value ICU [...] Pager Mellisa Haji MD Admitting Provider Cardiology 75579 Quality section A-Line necessity reviewed: Xmzf-kb-hyeh blood pressure monitoring CVC necessity reviewed: Rapid [...] Date of Service: 03/16/2017 Author:Raul Wei MD [facility] [address] [place] [address]Ohnyizojdwavtg signed by Raul Wei MD at 03/17/2017 11:03 AM PD Jose Ramon Rodriguez MD - 03/16/2017 5:15 PM PDT Cardiovascular Intensive Care Unit Team Progress Note CVICU D2 Assigned #[id number] ICU Admission Reason Most Recent Value ICU [...] Plan Patient went into VFib during slab stripper procedure at [facility]. Was shocked 17 times Now on [...] Patient was difficult intubation at outside slab stripper. -bridget retana for now Physical Exam vitals [...] Pager Mellisa Haji MD Admitting Provider Cardiology 74839 Quality section A-Line necessity reviewed: Hsuv-wj-qmdv blood pressure monitoring CVC necessity reviewed: Hemodynamic [...] Ramon Alvarado MD Author:Jose Ramon Alvarado MD [address] [address]Spydbmbkntfcod signed by Jose Ramon Alvarado MD at [...] Unit Attending Progress Note CVICU D2 Assigned #[id number] ICU Admission Reason Most Recent Value ICU [...] ICU Day #2 after being transferred from [place] in [place] in acute cardiogenic archie ck following an anterior STEMI. Upon arrival to [facility], decision was made to go [...] Pager Mellisa Haji MD Admitting Provider Cardiology 85012 Quality section A-Line necessity reviewed: Nibq-nb-slqd blood pressure monitoring CVC necessity reviewed: Hemodynamic [...] Date of Service: 03/16/2017 Author:Anurag Ashby MD [address] [address]Mvaspjjmeweawm signed by Anurag Ashby MD at 03/16/2017 1:23 PM Lee Prince MD - 03/16/2017 9:41 AM PDTFormatting of this note might be different from t vikash original. . Extracorporeal Life Support Service Daily Progress Note Pager #[phone] Type: Veno-Arterial (CPT 92566 [place] [address]) Diagnosis:Cardiogenic shock Dressing changed: no Dressing Changed [...] Clinical Update Note Team: D2 Team Pager: [phone] Attending: Abdulaziz Pt Name: Ron Mckeon ID: [...] Date of Service: 03/16/2017 Mirna Berumen PA-C [facility] DEPARTMENT: [facility] ICU CARDIAC Place of Service:- Inpatient CSN: [id number] Suggested Modifier: None Suggested CPT: TO ACCOUNTS ADMINISTRATOR Mirna Berumen PA-C Everardo Valladares MD - 03/15/2017 9:04 PM PDT Cardiovascular Intensive Care Unit Attending Progress Note CVICU D2 Assigned #[id number] ICU Admission Reason Most Recent Value ICU Admission reason Cardiogenic Shock filed at 03/15/2017 1531 Hospital admission dx: left anterior descending artery occlusion, needs cabg Days in ICU Days in Hospital Medical Decision Making ICU Day #1 after being transferred from [place] in [place] in acute cardiogenic archie ck following an anterior STEMI. Upon arrival to [facility], decision was made to go [...] Pager Mellisa Haji MD Admitting Provider Cardiology 77793 Quality section A-Line necessity reviewed: Vmxm-oa-ojbr blood pressure monitoring CVC necessity reviewed: Hemodynamic [...] and the recent imaging available. Seen with PA/[employer] AND [employer]IL[employer] APPRENTICE Winston Cole. Please see their note for details. I reviewed the documented findings, all data and the recent imaging available. Date of Service: 03/15/2017 Author:Everardo Cintron MD [address] [address]Jbfdqrzaskldzk signed by Everardo Cintron MD at 03/15/2017 9:[address] - 03/15/2017 2:11 PM PDTTransthoracic echocardiogram completed. Final r eport to follow. atrick Ruiz MD,MPH - 03/15/2017 2:00 PM PDT . Extracorporeal Life Support Service Consult Service Note Pager #[phone] Date: 03/15/17 Author: Patrick Ruiz MD,MPH Consulting Attending: Mellisa Haji MD Reason for Consult: [facility] ECMO Consideration HPI: 61 year old male who presents this afternoon to [facility] in acute cardiogenic shock second maciej to STEMI / thrombosed L main coronary artery. He was transferred from [place]. His symptoms started this morning around 3am and was seen in [place], [place]. He was diagnosed w ith an anterior STEMI and transferred to the slab stripper in [place], [place]. He was found to h ave [...] pressors (epinephrine and dopamine). On arrival to [facility], he was in profound cardiogenic shock and hypoxic. His MAP was in the 40s. He was tach ycardic into the 150s. IABP was increased to 1:2. Past Medical History: Past Medical History: Diagnosis Date Cardiogenic shock ([facility]) 03/15/2017 Coronary artery disease 03/15/2017 Hypercholesterolemia [...] from cardiogenic shock. Patrick Ruiz MD, MPH photogrammetric compilation specialist Trauma, Critical Care & Acute Care Surgery [facility] onies, Patrick Sexton MD,MPH - 03/15/2017 1:48 PM PDT . . Extracorporeal Life Support Service Initiation Note Pager #[phone] Date of service: 03/15/2017 Author: Patrick Ruiz Md,Mph ECMO Type: Veno-Arterial (CPT 83508 [place] [address]) Oxygenation index FiO2: 100 MAP: 22 Diagnosis:Cardiogenic [...] old male who presents this afternoon to [facility] in acute cardiogenic shock secondary [...] | + +--------+ + + + | WT-RE-VWV-HB,POC RT | Routin | 03/19/2017 | ST [...] +---+--------+ + +--------+ + + + | RM-AI-IDY-HB,POC RT | Routin | 03/19/2017 | ST [...] | + +--------+ + + + | AH-QP-FOI-HB,POC RT | Routin | 03/19/2017 | ST elevation | Results for this | | | e | 10:06 AM | myocardial | procedure are in the | | | | PDT | infarction involving | results section. | | | | | left main coronary | | | | | | artery (HCC) | | + +--------+ + + + | UD-NO-SMF-HB,POC RT | Routin | 03/19/2017 | ST [...] | + +--------+ + + + | FY-DH-CUB-HB,POC RT | Routin | 03/17/2017 | ST [...] | + +--------+ + + + | QC-PV-VPV-HB,POC RT | Routin | 03/16/2017 | ST [...] | + +--------+ + + + | OB-ZH-KSA-HB,POC RT | Routin | 03/16/2017 | ST [...] | + +--------+ + + + | JT-EA-ONT-HB,POC RT | Routin | 03/15/2017 | ST [...] AT,GLUC,CA,AST,ALT,B | | | | | | BLACNA TOTAL,ALK | | | | | | [...] | + +--------+ + + + | NQ-MS-SAR-HB,POC RT | Routin | 03/15/2017 | ST [...] | + +--------+ + + + | JJ-TC-FOU-HB,POC RT | Routin | 03/15/2017 | ST [...] Height: 175 cm Weight: 89 kgBSA: 2.05 [id number] PHYSICIAN:Katarina Ngo, | | .FELLOW:Gerson Mejias M.D. [...] right coronary angiography.COMPLICATIONS:None.TECHNIQUE:Right femoral artery | | 6-Kosovan 10 cm [place] sheath, 6-Kosovan XB 3.5 guide catheter, 5-Kosovan JR4 | | catheter.DESCRIPTION OF PROCEDURE:Informed consent [...] modified Seldinger technique and a | | 5-Kosovan micropuncture system, a 6-Kosovan 10 cm [place] sheath was placed in the right | | femoral artery. A 6-Kosovan XB 3.5 guide catheter was inserted into the ascending aorta | | over a guidewire. The guidewire was removed. The catheter was aspirated and flushed. | | The left coronary system was selectively engaged and imaged in multiple projections. A | | 5-Kosovan Kymberly right 4 catheter was advanced to [...] DOSE AREA | | PRODUCT: 3749 cGy [id number]:Aortic pressure 87/15, mean aortic pressure 63, heart [...] 03/30/2017 04:50:01DT: | | 03/30/2017 08:34:34Job #: [id number] | |extending from it into the LAD. [...] |YDT/MODL | | | | | | /[id number] | + + CAPILLARY BLOOD GLUCOSE (NO [...] + + + | [facility] | [address] | [place], [place] | | | JULIANN SILVA OF ALEXIS | [address] | [address] | | | TESTS | | | [...] [facility] | [address] | [place] [address] | | | SERVICES, CORE | PARK [...] [facility] | [address] | [place] [address] | | | SERVICES, CORE | PARK [...] [facility] | [address] | [place] [address] | | | SERVICES, CORE | PARK [...] | | | LABORATORY | | | [place] | | | SERVICES, | | | [...] + + | [facility] | [address] | [place] [address] | | | SERVICES, CORE | TABITHA [...] | + + + + + | [facility] | [address] | [place] [address] | | | SERVICES, CORE | PARK [...] [facility] | [address] | [place] [address] | | | ИРИНА ANTOINE | TABITHA [...] + + + | [facility] | [address] | [place], [place] | | | RICARDO POINT OF CARE | [address] | [address] | | | TESTS | | | [...] [facility] | [address] | [place], [place] | | | [facility]O POINT OF CARE | [address] | [address] | | | TESTS | | | [...] ANA [facility] | [address] | [place], [place] | | | [facility] POINT OF CARE | [address] | [address] | | | TESTS | | | [...] | + + + + + | [facility] | [address] [facility] | [place] [address] | | | SERVICES, CORE | PARK [...] | | | LABORATORY | | | [place] | | | SERVICES, | | | [...] [facility] | [address] | [place] [address] | | | SERVICES, CORE | TABITHA [...] | + + + + + | [facility] | [address] | [place] [address] | | | ARAHS, ИРИНА | [address] | | | [...] | + + + + + | [facility] | [address] | [place] [address] | | | SERVICES, CORE | PARK [...] (H) | 70 - 99 mg/dL | [facility] - | | | GLUCOSE, [...] [facility] | [address] | [place], [place] | | | JULIANN SILVA OF CARE | [address] | [address] | | | TESTS | | | [...] [facility] | [address] | [place], [place] | | | JULIANN SILVA OF CARE | [place] | [address] | | | TESTS | | | [...] (H) | 70 - 99 mg/dL | [facility] - | | | GLUCOSE, [...] [facility] | [address] | [place], [place] | | | JULIANN SILVA OF CARE | [address] | [address] | | | TESTS | | | [...] [facility] | [address] | [place], [place] | | | GURINDER SILVA | [place] | [address] | | | TESTS | | | [...] [facility] | [address] | [place] [address] | | | ИРИНА ANTOINE | TABITHA [...] | | | LABORATORY | | | [place] | | | SERVICES, | | | [...] | + + + + + | [facility] | [address] | [place] [address] | | | SERVICES, CORE | PARK [...] HEALTHCARE CENTER | [address] | [place] [address] | | | SERVICES, CORE | TABITHA [...] | + + + + + | [facility] | [address] | [place] [address] | | | ARASH, CORE | PARK [...] [facility] | [address] | [place] [address] | | | SERVICES, CORE | TABITHA [...] - [facility] | [address] | [place], [place] | | | [facility]ARDO POINT OF CARE | [address] | [address] | | | TESTS | | | [...] | | | LABORATORY | | | [employer] | | | SERVICES, | | | [...] | + + + + + | [facility] | [address] | [place] [address] | | | ИРИНА ANTOINE | TABITHA [...] DEPT OF | [address] | [place], [place] | | | CARDIOLOGY | [address] | [address] | | + + + + + [...] [facility] | [address] | [place], [place] | | | R[facility]O POINT OF CARE | [address] | [address] | | | TESTS | | | [...] | | | LABORATORY | | | [employer] [employer] [employer] | | | SERVICES, | | | [...] | [address] [facility] | [place] [address] | | | SERVICES, CORE | PARK [...] LABORATORY | [address] | [place] [address] | | | SERVICES, CORE | TABITHA [...] rmed At | + +------ + | [facility] | [facility] | | [facility] Adult Echocardiography | CARDI OLOGY | | Laboratory [address] [place] [address], | | | [place] [address] Pt Name: | | | RON MCKEON Study Date/Time 03/30/2017 / 10:44:00 | | | AMMRN: [id number] Most recent | | | prior: 03/19/17cc #: [id number] No. previous | | | echos: 3DOB: 1955 61 years Heart | | | Rate: 70 bpmHeight: 68.0 in | | | Blood Pressure: 100/55 mm/HgWeight: 197.0 | | | lb Gender: | | | MBSA: 2.03 m2 Order | | | ID: [id number] Promotional Model: Shahab Sutton | | | RDCSSonographer 2: Karly Gayle Referring Provider: Ariana | | | [facility] Location: 11KModalities Performed: 2D, Color flow, [...] significant recent [place], we activated the slab stripper. Patient | | | history has been [...] Report electronically signed by: | | | [id number] Jordon Neville MD (03/30/2017, 2:04:56 PM) Final | | | | | |Wall Scoring: | | | | | | | | |Report electronically signed by: [id number] Jordon Neville MD (03/30/2017, 2:04:56 PM) | | | | | | | | | | | | Final | | + +------ + + + | Procedure Note | + + | Interface, Cardiology Results - 03/30/2017 2:[address] [facility] | | [facility] Echocardi[facility] Laboratory [address] [place] [address] | | [place], [place] [address] Pt Name: RON Chaudhary | | MIKE Study Date/Time 03/30/2017 / 10:44:00 AMMRN: [id number] Most | | recent prior: 03/19/17 #: [id number] No. previous echos: 3DOB: | | 1955 61 years Heart Rate: 70 bpmHeight: 68.0 in Blood | | Pressure: 100/55 mm/HgWeight: 197.0 lb Gender: MBSA: | | 2.03 m2 Order ID: [id number] Promotional Model: Sahhab Sutton | | RDCSSonographer 2: Karly Major [...] significant recent [place], we activated the slab stripper. Patient history has been | | obtained [...] Scoring: Report | | electronically signed by: [id number] Jordon Neville MD (03/30/2017, 2:04:56 PM) Final [...] | | | |Report electronically signed by: [id number] Jordon Neville MD (03/30/2017, 2:04:56 PM) | | | | | | | | Final | + + + + + + + | Performing | Address | City/State/Zipcode | Phone Number | | Organization | | | | + + + + + | [facility] | [address] [facility] | [place], [place] | | | CARDIOLOGY | [address] | [address] | | + + + + + [...] [facility] | [address] | [place], [place] | | | [facility]O POINT OF CARE | [address] | [address] | | | TESTS | | | [...] + | [facility] | [address] [facility] | [place] [address] | | | SERVICES, CORE | TABITHA [...] MARIA | [address] | [place], [place] | | | JULIANN SILVA OF ALEXIS | [address] | [address] | | | TESTS | | | [...] | [address] [facility] | [place], [place] | | | CARDIOLOGY | [address] | [address] | | + + + + + [...] | | | LABORATORY | | | [place] | | | SERVICES, | | | [...] [facility] | [address] | [place] [address] | | | SERVICES, CORE | PARK [...] [facility] | [address] | [place] [address] | | | SERVICES, CORE | TABITHA [...] | + + + + + | [facility] | [address] | [place] [address] | | | SERVICES, CORE | PARK [...] DEPT OF | [address] | [place], [place] | | | CARDIOLOGY | [address] | [address] | | + + + + + [...] DEPT OF | [address] | [place], [place] | | | CARDIOLOGY | [address] | [address] | | + + + + + [...] [facility]ALTH[facility]ARE [facility]ENTER | [address] | [place] [address] | | | SERVICES, CORE | PARK [...] + | [facility] | [address] [facility] | [place] [address] | | | SERVICES, CORE | TABITHA [...] | + + + + + | [facility] | [address] | [place] [address] | | | ARASH, ИРИНА | PARK [...] [facility] | [address] | [place] [address] | | | SERVICES, CORE | PARK [...] MARIA | [address] | [place], [place] | | | JULIANN SILVA OF [facility] | [address] | [address] | | | TESTS | | | [...] | + + + + + | [facility] | [address] | [place] [address] | | | SERVICES, CORE | TABITHA [...] + + + + + | [facility] | [address] | [place], [place] | | | CARDIOLOGY | [address] | [address] | | + + + + + [...] - [facility] | [address] | [place], [place] | | | RICARDO POINT OF CARE | [address] | [address] | | | TESTS | | | [...] [facility] | [address] | [place], [place] | | | RICARDO POINT OF [facility] | [address] | [address] | | | TESTS | | | [...] HEALTHCARE CENTER | [address] | [place] [address] | | | SERVICES, CORE | TABITHA [...] [facility] | [address] | [place], [place] | | | [facility]O POINT OF CARE | [address] | [address] | | | TESTS | | | [...] [facility] | [address] | [place] [address] | | | SERVICES, CORE | PARK [...] | | | LABORATORY | | | [place] | | | SERVICES, | | | [...] | + + + + + | [facility] | [address] | [place] [address] | | | SERVICES, CORE | TABITHA [...] | + + + + + | [facility] | [address] [facility] | [place] [address] | | | ARASH, ИРИНА | TABITHA [...] | + + + + + | [facility] | [address] | [place] [address] | | | SERVICES, CORE | TABITHA [...] HEALTHCARE CENTER | [address] | [place] [address] | | | ARASH, ИРИНА | TABITHA [...] | + + + + + | [facility] | [address] | [place] [address] | | | SERVICES, CORE | TABITHA [...] R[facility] | [address] | [place], [place] | | | JULIANN SILVA OF ALEXIS | [address] | [address] | | | TESTS | | | [...] ANA MAR[facility] | [address] | [place], [place] | | | JULIANN SILVA OF [facility] | [place] | [address] | | | TESTS | | | [...] | | | LABORATORY | | | [employer] [employer] | | | SERVICES, | | | [...] | + + + + + | [facility] | [address] | [place] [address] | | | ARASH, ИРИНА | PARK [...] [facility] | [address] | [place] [address] | | | SERVICES, CORE | PARK [...] | | | LABORATORY | | | [place] | | | SERVICES, | | | [...] + | [facility] | [address] [facility] | [place] [address] | | | SERVICES, CORE | TABITHA [...] [facility] | [address] | [place], [place] | | | JULIANN SILVA OF CARE | [address] | [address] | | | TESTS | | | [...] [facility] | [address] | [place], [place] | | | JULIANN SILVA OF CARE | [address] | [address] | | | TESTS | | | [...] | [address] [facility] | [place] [address] | | | SERVICES, ИРИНА | TABITHA [...] | | | LABORATORY | | | [place] | | | SERVICES, | | | [...] | [address] [facility] | [place] [address] | | | SERVICES, CORE | PARK [...] | + + + + + | [facility] | [address] | [place] [address] | | | SERVICES, CORE | PARK [...] HEALTHCARE CENTER | [address] | [place] [address] | | | SERVICES, CORE | [address] | | | + + + + + MAGNESIUM, PLASMA (03/28/2017 4:13 AM PDT) + +---------+ + + + | Component | Value | Ref Range | Performed | Pathologist | | | | | At | Signature | + +---------+ + + + | MAGNESIUM,P | 2.7 (H) | 1.8 - 2.5 mg/dL | [facility] | | | DENISEMA | [...] | + + + + + | [facility] | [address] | [place] [address] | | | SERVICES, CORE | PARK [...] [facility] | [address] | [place], [place] | | | JULIANN SILVA OF [facility] | [address] | [address] | | | TESTS | | | [...] [facility] | [address] | [place], [place] | | | RICARDO POINT OF CARE | [address] | [address] | | | TESTS | | | [...] MARIA | [address] | [place], [place] | | | JULIANN SILVA OF ALEXIS | [address] | [address] | | | TESTS | | | [...] ANA MAR[facility] | [address] | [place], [place] | | | JULIANN SILVA OF [facility] | [address] | [address] | | | TESTS | | | [...] [facility] | [address] | [place] [address] | | | SERVICES, CORE | PARK [...] HEALTHCARE CENTER | [address] | [place] [address] | | | SERVICES, CORE | TABITHA [...] | | | LABORATORY | | | [place] | | | SERVICES, | | | [...] [facility] | [address] | [place] [address] | | | SERVICES, CORE | PARK [...] | + + + + + | [facility] | [address] | [place] [address] | | | SERVICES, CORE | PARK [...] HEALTHCARE CENTER | [address] | [place] [address] | | | SERVICES, CORE | TABITHA [...] - [facility] | [address] | [place], [place] | | | RICARDO POINT OF CARE | [address] | [address] | | | TESTS | | | [...] + + + | [facility] | [address] | [place], [place] | | | RICARDO POINT OF CARE | [address] | [address] | | | TESTS | | | [...] | | | LABORATORY | | | [facility] [facility] | | | SERVICES, | | | [...] HEALTHCARE CENTER | [address] | [place] [address] | | | SERVICES, CORE | TABITHA [...] MARRANDIAM | [address] | [place], [place] | | | JULIANN SILVA OF ALEXIS | [address] | [address] | | | TESTS | | | | + + + + + RAINBOW HOLD TUBE - GREEN TOP (03/26/2017 3:50 AM PDT) + + | Specimen | + + | Blood | + + + + + + + | Performing | Address | City/State/Zipcode | Phone Number | | Organization | | | | + + + + + | [facility] | [address] | [place] [address] | | | SERVICES, CORE | TABITHA [...] + | [facility] | [address] [facility] | [place] [address] | | | SERVICES, CORE | PARK [...] | + + + + + | [facility] | [address] | [place] [address] | | | ИРИНА ANTOINE | TABITHA [...] | | | LABORATORY | | | [employer] [employer] | | | SERVICES, | | | [...] [facility] | [address] | [place] [address] | | | SERVICES, CORE | TABITHA [...] [facility] | [address] | [place] [address] | | | SERVICES, CORE | TABITHA [...] [facility] | [address] | [place] [address] | | | SERVICES, CORE | PARK [...] | [facility] | | considered for monitoring termite control service representative glycemic control in patients with: | LABORATORY [...] [facility] | [address] | [place] [address] | | | SERVICES, SPECIAL | PARK [...] + + + + | [facility] | [address] | [place] [address] | | | SERVICES, CORE | TABITHA [...] [facility] | [address] | [place], [place] | | | RICARDO POINT OF CARE | [address] | [address] | | | TESTS | | | [...] EULOGIO [facility] | [address] | [place], [place] | | | RICARDO POINT OF CARE | [address] | [address] | | | TESTS | | | [...] | + + + + + | [facility] | [address] | [place] [address] | | | SERVICES, CORE | TABITHA [...] | [facility] | | | GRAVITY | [place] performed by | | LABORATORY | | [...] [facility] | [address] | [place] [address] | | | SERVICES, CORE | TABITHA [...] + | [facility] | [address] | [place] [address] | | | [place] | | | [...] [facility] | [address] | [place], [place] | | | RICARDO POINT OF CARE | [address] | [address] | | | TESTS | | | [...] [facility] | [address] | [place], [place] | | | RICARDO POINT OF CARE | [address] | [address] | | | TESTS | | | [...] [facility] | [address] | [place] [address] | | | ИРИНА ANTOINE | TABITHA [...] | + + + + + | [facility] | [address] | [place] [address] | | | ИРИНА ANTOINE | TABITHA [...] | + + + + + | [facility] | [address] [facility] | [place] [address] | | | ИРИНА ANTOINE | TABITHA [...] [facility] | [address] | [place] [address] | | | SERVICES, CORE | PARK [...] | | | LABORATORY | | | [employer] | | | SERVICES, | | | [...] | + + + + + | [facility] | [address] [facility] | [place] [address] | | | SERVICES, CORE | PARK [...] | + + + + + | [facility] | [address] [facility] | [place] [address] | | | SERVICES, CORE | PARK [...] [facility] | [address] | [place], [place] | | | JULIANN SILVA OF CARE | [address] | [address] | | | TESTS | | | [...] - [facility] | [address] | [place], [place] | | | JULIANN SILVA OF CARE | [address] | [address] | | | TESTS | | | [...] [facility] | [address] | [place], [place] | | | RICARDO POINT OF CARE | [address] | [address] | | | TESTS | | | [...] [facility] | [address] | [place], [place] | | | JULIANN SILVA OF CARE | [address] | [address] | | | TESTS | | | [...] [facility] | [address] | [place] [address] | | | SERVICES, CORE | PARK [...] | + + + + + | [facility] | [address] | [place] [address] | | | SERVICES, CORE | TABITHA [...] [facility] | [address] | [place], [place] | | | JULIANN SILVA OF CARE | [address] | [address] | | | TESTS | | | [...] | | | attempt. Midline lot number [id number]; there was + blood | | | [...] [facility] | [address] | [place], [place] | | | JULIANN SILVA OF [place] | [address] | [address] | | | TESTS | | | [...] [facility] | [address] | [place], [place] | | | RICARDO POINT OF CARE | [address] | [address] | | | TESTS | | | [...] [facility] | [address] | [place] [address] | | | SERVICES, CORE | TABITHA [...] (H) | 70 - 99 mg/dL | [facility] - | | | GLUCOSE, [...] [facility] | [address] | [place], [place] | | | JULIANN SILVA OF [facility] | [place] | [address] | | | TESTS | | | [...] MARIA | [address] | [place], [place] | | | JULIANN SILVA OF [place] | [address] | [address] | | | TESTS | | | [...] MARIA | [address] | [place], [place] | | | RICARDO POINT OF CARE | [place] | [address] | | | TESTS | | | [...] (H) | 70 - 99 mg/dL | [facility] - | | | GLUCOSE, [...] [facility] | [address] | [place], [place] | | | JULIANN SILVA OF [place] | [place] | [address] | | | TESTS | | | [...] [facility] | [address] | [place] [address] | | | SERVICES, CORE | TABITHA [...] [facility] | [address] | [place] [address] | | | SERVICES, CORE | TABITHA [...] [facility] | [address] | [place] [address] | | | SERVICES, CORE | TABITHA [...] | | | LABORATORY | | | [employer] [employer] | | | SERVICES, | | | [...] [facility] | [address] | [place] [address] | | | SERVICES, CORE | TABITHA [...] | + + + + + | [facility] | [address] | [place] [address] | | | ИРИНА ANTOINE | TABITHA [...] ANA MARIA | [address] | [place], [place] | | | JULIANN SILVA OF CARE | [address] | [address] | | | TESTS | | | [...] (H) | 70 - 99 mg/dL | [facility] - | | | GLUCOSE, [...] R[facility] | [address] | [place], [place] | | | JULIANN SILVA OF CARE | [address] | [address] | | | TESTS | | | [...] [facility] | [address] | [place], [place] | | | JULIANN SILVA OF CARE | [address] | [address] | | | TESTS | | | [...] ANA MARIA | [address] | [place], [place] | | | [place] OF [facility] | [address] | [address] | | | TESTS | | | [...] [facility] | [address] | [place] [address] | | | SERVICES, CORE | TABITHA [...] [facility] | [address] | [place], [place] | | | RICARDO POINT OF CARE | [address] | [address] | | | TESTS | | | [...] ANA MARIA | [address] | [place], [place] | | | R[facility]ARDO POINT OF CARE | [address] | [address] | | | TESTS | | | [...] | + + + + + | [facility] | [address] [facility] | [place] [address] | | | SERVICES, CORE | TABITHA [...] [facility] | [address] | [place], [place] | | | JULIANN SILVA OF [place] | [place] | [address] | | | TESTS | | | [...] [facility] | [address] | [place], [place] | | | JULIANN SILVA OF CARE | [address] | [address] | | | TESTS | | | [...] (H) | 70 - 99 mg/dL | [facility] - | | | GLUCOSE, [...] [facility] | [address] | [place], [place] | | | RICARDO POINT OF [facility] | [address] | [address] | | | TESTS | | | [...] [facility] | [address] | [place], [place] | | | JULIANN SILVA OF [place] | [place] | [address] | | | TESTS | | | [...] MARIA | [address] | [place], [place] | | | RICARDO POINT OF [facility] | [address] | [address] | | | TESTS | | | [...] [facility] | [address] | [place] [address] | | | SERVICES, CORE | PARK [...] | + + + + + | [facility] | [address] | [place] [address] | | | SERVICES, CORE | PARK [...] [facility] | [address] | [place] [address] | | | SERVICES, CORE | TABITHA [...] | | | LABORATORY | | | [employer] | | | SERVICES, | | | [...] [facility] | [address] | [place] [address] | | | SERVICES, CORE | PARK [...] | + + + + + | [facility] | [address] | [place] [address] | | | SERVICES, CORE | TABITHA [...] MARIA | [address] | [place], [place] | | | JULIANN SILVA OF [place] | [place] | [address] | | | TESTS | | | [...] MARIA | [address] | [place], [place] | | | JULIANN SILVA OF [place] | [place] | [address] | | | TESTS | | | [...] (H) | 70 - 99 mg/dL | [facility] - | | | GLUCOSE, [...] MARIA | [address] | [place], [place] | | | RICARDO POINT OF CARE | [address] | [address] | | | TESTS | | | [...] MARIA | [address] | [place], [place] | | | JULIANN SILVA OF [place] | [place] | [address] | | | TESTS | | | [...] [facility] | [address] | [place], [place] | | | JULIANN SILVA OF [place] | [place] | [address] | | | TESTS | | | [...] (H) | 70 - 99 mg/dL | [facility] - | | | GLUCOSE, [...] MARIA | [address] | [place], [place] | | | RICARDO POINT OF CARE | [address] | [address] | | | TESTS | | | [...] [facility] | [address] | [place] [address] | | | SERVICES, CORE | PARK [...] - [facility] | [address] | [place], [place] | | | JULIANN SILVA OF CARE | [place] | [address] | | | TESTS | | | [...] [facility] | [address] | [place], [place] | | | RICARDO POINT OF CARE | [address] | [address] | | | TESTS | | | [...] [facility] | [address] | [place], [place] | | | JULIANN SILVA OF CARE | [address] | [address] | | | TESTS | | | [...] - [facility] | [address] | [place], [place] | | | JULIANN SILVA OF CARE | [address] | [address] | | | TESTS | | | [...] + + + | [facility] | [address] | [place], [place] | | | RICARDO POINT OF CARE | [address] | [address] | | | TESTS | | | [...] [facility] | [address] | [place] [address] | | | ARASH, ИРИНА | TABITHA [...] [facility] | [address] | [place], [place] | | | JULIANN SILVA OF [place] | [address] | [address] | | | TESTS | | | [...] [facility] | [address] | [place], [place] | | | RICARDO POINT OF CARE | [address] | [address] | | | TESTS | | | [...] [facility] | [address] | [place], [place] | | | JULIANN SILVA OF CARE | [address] | [address] | | | TESTS | | | [...] [facility] | [address] | [place], [place] | | | JULIANN SILVA OF [place] | [address] | [address] | | | TESTS | | | [...] [facility] | [address] | [place], [place] | | | RICARDO POINT OF CARE | [address] | [address] | | | TESTS | | | [...] [facility] | [address] | [place], [place] | | | HILL, POINT OF CARE | [address] | [address] | | | TESTS | | | [...] [facility] | [address] | [place] [address] | | | SERVICES, | [address] [...] | + + + + + | [facility] | [address] | [place] [address] | | | SERVICES, | [address] [...] + + + + | PRODUCT | [id number] | | [facility] | | | UNIT [...] + + + + | EXPIRATION | [id number] | | [facility] | | | DATE [...] + + + + | BLOOD | [id number] | | [facility] | | | PRODUCT [...] [facility] | [address] | [place] [address] | | | SERVICES, | [address] [...] + + + | [facility] | [address] | [place] [address] | | | SERVICESИРИНА | [address] [...] | + + + + + | [facility] | [address] [facility] | [place] [address] | | | SERVICES, CORE | PARK [...] [facility] | [address] | [place] [address] | | | ИРИНА ANTOINE | TABITHA [...] | + + + + + | [facility] | [address] [facility] | [place] [address] | | | SERVICES, CORE | TABITHA [...] [facility] | [address] | [place] [address] | | | SERVICES, CORE | PARK [...] | | | LABORATORY | | | [employer] | | | SERVICES, | | | [...] | + + + + + | [facility] | [address] | [place] [address] | | | SERVICES, CORE | PARK [...] MARIA | [address] | [place], [place] | | | JULIANN SILVA OF CARE | [place] | [address] | | | TESTS | | | [...] (H) | 70 - 99 mg/dL | [facility] - | | | GLUCOSE, [...] [facility] | [address] | [place], [place] | | | JULIANN SILVA OF CARE | [place] | [address] | | | TESTS | | | [...] MARIA | [address] | [place], [place] | | | JULIANN SILVA OF [place] | [address] | [address] | | | TESTS | | | [...] ANA MARIA | [address] | [place], [place] | | | JULIANN SILVA OF CARE | [place] | [address] | | | TESTS | | | [...] (H) | 70 - 99 mg/dL | [facility] - | | | GLUCOSE, [...] R[facility] | [address] | [place], [place] | | | JULIANN SILVA OF CARE | [place] | [address] | | | TESTS | | | [...] MARIA | [address] | [place], [place] | | | JULIANN SILVA OF [place] | [address] | [address] | | | TESTS | | | [...] MARIA | [address] | [place], [place] | | | JULIANN SILVA OF CARE | [place] | [address] | | | TESTS | | | [...] (H) | 70 - 99 mg/dL | [facility] - | | | GLUCOSE, [...] R[facility] | [address] | [place], [place] | | | JULIANN SILVA OF CARE | [address] | [address] | | | TESTS | | | [...] MARIA | [address] | [place], [place] | | | JULIANN SILVA OF [place] | [address] | [address] | | | TESTS | | | [...] | | | LABORATORY | | | [employer] | | | SERVICES, | | | [...] | + + + + + | [facility] | [address] | [place] [address] | | | SERVICES, CORE | PARK [...] [facility] | [address] | [place], [place] | | | JULIANN SILVA OF CARE | [address] | [address] | | | TESTS | | | [...] [facility] | [address] | [place], [place] | | | JULIANN SILVA OF [place] | [address] | [address] | | | TESTS | | | [...] (H) | 70 - 99 mg/dL | [facility] - | | | GLUCOSE, [...] R[facility] | [address] | [place], [place] | | | JULIANN SILVA OF [place] | [address] | [address] | | | TESTS | | | [...] on the 1 attempt. Midline lot number [id number]; there was + | | | blood [...] [facility] | [address] | [place], [place] | | | JULIANN SILVA OF CARE | [place] | [address] | | | TESTS | | | [...] R[facility] | [address] | [place], [place] | | | JULIANN SILVA OF CARE | [address] | [address] | | | TESTS | | | [...] [facility] | [address] | [place] [address] | | | SERVICES, CORE | PARK [...] + + + | [facility] | [address] | [place], [place] | | | RICARDO POINT OF CARE | [address] | [address] | | | TESTS | | | [...] [facility] | [address] | [place] [address] | | | SERVICES, CORE | PARK [...] MARIA | [address] | [place], [place] | | | JULIANN SILVA OF CARE | [address] | [address] | | | TESTS | | | [...] MARIA | [address] | [place], [place] | | | JULIANN SILVA OF [place] | [place] | [address] | | | TESTS | | | [...] (H) | 70 - 99 mg/dL | [facility] - | | | GLUCOSE, [...] [facility] | [address] | [place], [place] | | | RICARDO POINT OF CARE | [address] | [address] | | | TESTS | | | [...] MARIA | [address] | [place], [place] | | | JULIANN SILVA OF [place] | [address] | [address] | | | TESTS | | | [...] [facility] | [address] | [place] [address] | | | ИРИНА ANTOINE | TABITHA [...] | + + + + + | [facility] | [address] | [place] [address] | | | SERVICES, CORE | PARK [...] + | [facility] | [address] [facility] | [place] [address] | | | SERVICES, CORE | TABITHA [...] | | | LABORATORY | | | [employer] | | | SERVICES, | | | [...] [facility] | [address] | [place] [address] | | | ИРИНА ANTOINE | TABITHA [...] (H) | 70 - 99 mg/dL | [facility] - | | | GLUCOSE, [...] [facility] | [address] | [place], [place] | | | RICARDO POINT OF CARE | [address] | [address] | | | TESTS | | | [...] MARIA | [address] | [place], [place] | | | JULIANN S[facility]VA OF [facility] | [address] | [address] | | | TESTS | | | [...] [facility] | [address] | [place], [place] | | | JULIANN SILVA OF CARE | [address] | [address] | | | TESTS | | | [...] [facility] | [address] | [place], [place] | | | JULIANN SILVA OF CARE | [address] | [address] | | | TESTS | | | [...] [facility] | [address] | [place], [place] | | | JULIANN SILVA OF CARE | [address] | [address] | | | TESTS | | | [...] | + + + + + | [facility] | [address] | [place] [address] | | | SERVICES, CORE | TABITHA [...] (H) | 70 - 99 mg/dL | [facility] - | | | GLUCOSE, [...] [facility] | [address] | [place], [place] | | | RICARDO POINT OF CARE | [address] | [address] | | | TESTS | | | [...] [facility] | [address] | [place], [place] | | | RICARDO POINT OF CARE | [address] | [address] | | | TESTS | | | [...] [facility] | [address] | [place], [place] | | | JULIANN S[facility]VA [facility] [place] | [place] | [address] | | | TESTS | | | [...] [facility] | [address] | [place], [place] | | | JULIANN SILVA OF CARE | [address] | [address] | | | TESTS | | | [...] [facility] | [address] | [place], [place] | | | HILL, POINT OF CARE | [address] | [address] | | | TESTS | | | [...] [facility] | [address] | [place], [place] | | | JULIANN S[facility]VA [facility] [place] | [place] | [address] | | | TESTS | | | [...] [facility] | [address] | [place], [place] | | | JULIANN SILVA OF CARE | [address] | [address] | | | TESTS | | | [...] [facility] | [address] | [place] [address] | | | SERVICES, CORE | TABITHA [...] (H) | 70 - 99 mg/dL | [facility] - | | | GLUCOSE, [...] R[facility] | [address] | [place], [place] | | | JULIANN SILVA OF [facility] | [place] | [address] | | | TESTS | | | [...] MARIA | [address] | [place], [place] | | | JULIANN SILVA OF CARE | [address] | [address] | | | TESTS | | | [...] | + + + + + | [facility] | [address] | [place] [address] | | | ИРИНА ANTOINE | TABITHA [...] [facility] | [address] | [place], [place] | | | JULIANN SILVA OF [facility] | [address] | [address] | | | TESTS | | | [...] the tip in the proximal gastric body. [place] О[employer]ег | | | catheter in place. [...] Note | + + | Service Account, [employer] In Interface - 03/20/2017 2:38 PM PDT EXAM: Supine | | frontal view of the abdomen. HISTORY: Study to evaluate feeding tube | | positionCOMPARISON: Chest Xray dated 03/19/2017.FINDINGS AND IMPRESSION:Feeding tube is | | seen in the stomach with the tip in the proximal gastric body.[place] О[place]ег catheter in | | place.Limited evaluation of the lungs as technique was tailored for feeding tube.I have | | personally reviewed the images and, if necessary, edited the report. I agree with the | | report as now presented. | | | |Feeding tube is seen in the stomach with the tip in the proximal gastric body. | |[place] О[place]ег catheter in place. | |Limited evaluation [...] | | + +---------+ + + | [facility] | | | | [...] [facility] | [address] | [place], [place] | | | JULIANN SILVA OF CARE | [address] | [address] | | | TESTS | | | [...] R[facility] | [address] | [place], [place] | | | JULIANN SILVA OF CARE | [address] | [address] | | | TESTS | | | [...] + + | [facility] | [address] | [place], [place] | | | JULIANN SILVA OF CARE | [address] | [address] | | | TESTS | | | [...] [facility] | [address] | [place], [place] | | | JULIANN SILVA OF [place] | [address] | [address] | | | TESTS | | | [...] [facility] | [address] | [place], [place] | | | RICARDO POINT OF CARE | [address] | [address] | | | TESTS | | | [...] + | [facility] | [address] [facility] | [place] [address] | | | ARASH, ИРИНА | TABITHA [...] | [address] [facility] | [place] [address] | | | SERVICES, CORE | PARK [...] | + + + + + | [facility] | [address] | [place] [address] | | | SERVICES, CORE | TABITHA [...] [facility] | [address] | [place], [place] | | | JULIANN SILVA OF CARE | [address] | [address] | | | TESTS | | | [...] Note | + + | Service Account, [employer] In Interface - 03/20/2017 10:12 AM PDT [...] [facility] | [address] | [place], [place] | | | CHRISTIE SILVA [facility] | [place] | [address] | | | TESTS | | | [...] [facility] | [address] | [place], [place] | | | JULIANN SILVA OF [place] | [place] | [address] | | | TESTS | | | [...] R[facility] | [address] | [place], [place] | | | RICARDO POINT OF CARE | [address] | [address] | | | TESTS | | | [...] MARQUAM | [address] | [place], [place] | | | JULIANN SILVA OF [facility] | [place] | [address] | | | TESTS | | | [...] [facility] | [address] | [place] [address] | | | SERVICES, CORE | TABITHA [...] | + + + + + | [facility] | [address] | [place] [address] | | | SERVICES, CORE | [address] | | | + + + + + MAGNESIUM, PLASMA (03/20/2017 1:00 AM PDT) + +---------+ + + + | Component | Value | Ref Range | Performed | Pathologist | | | | | At | Signature | + +---------+ + + + | MAGNESIUM,P | 2.7 (H) | 1.8 - 2.5 mg/dL | [facility] | | | LASMA | [...] | + + + + + | [facility] | [address] | [place] [address] | | | SERVICES, CORE | PARK [...] [facility] | [address] | [place] [address] | | | SERVICES, CORE | TABITHA [...] | | | LABORATORY | | | [facility] [place] [facility] | | | SERVICES, | | | [...] + | [facility] | [address] [facility] [facility] | [place] [address] | | | ARASH, ИРИНА | TABITHA [...] MARQUAM | [address] | [place], [place] | | | [place], POINT OF CARE | [address] | [address] | | | TESTS | | | [...] MARQUAM | [address] | [place], [place] | | | JULIANN SILVA OF [facility] | [address] | [address] | | | TESTS | | | [...] [facility] | [address] | [place] [address] | | | SERVICES, CORE | TABITHA [...] MARQUAM | [address] | [place], [place] | | | JULIANN SILVA OF CARE | [address] | [address] | | | TESTS | | | [...] EULOGIO RODGERS | [address] | [place], [place] | | | [place] [facility] | [address] | [address] | | | TESTS | | | [...] | + + + + + | [facility] | [address] | [place] [address] | | | SERVICES, CORE | TABITHA [...] (H) | 70 - 99 mg/dL | [facility] - | | | GLUCOSE, [...] RODGERS | [address] | [place], [place] | | | JULIANN [facility] | [place] | [address] | | | TESTS | | | [...] | + + + + + | [facility] | [address] | [place] [address] | | | SERVICES, CORE | TABITHA [...] MARIA | [address] | [place], [place] | | | JULIANN SILVA OF [facility] | [place] | [address] | | | TESTS | | | [...] | + + + + + | [facility] | [address] | [place] [address] | | | SERVICES, CORE | PARK [...] | + + + + + | [facility] | [address] | [place] [address] | | | ИРИНА ANTOINE | TABITHA [...] (H) | 70 - 99 mg/dL | [facility] - | | | GLUCOSE, [...] MARIA | [address] | [place], [place] | | | RICARDO POINT OF CARE | [address] | [address] | | | TESTS | | | [...] | + + + + + | [facility] | [address] | [place] [address] | | | ARASH, ИРИНА | TABITHA [...] [facility] | [address] | [place] [address] | | | SERVICES, CORE | PARK [...] [facility] | [address] | [place] [address] | | | ARASH, ИРИНА | PARK [...] | + + + + + | [facility] | [address] | [place] [address] | | | SERVICES, CORE | TABITHA [...] (H) | 70 - 99 mg/dL | [facility] - | | | GLUCOSE, [...] RODGERS | [address] | [place], [place] | | | JULIANN SILVA OF [place] | [address] | [address] | | | TESTS | | | [...] MARQUAM | [address] | [place], [place] | | | RICARDO POINT OF CARE | [address] | [address] | | | TESTS | | | [...] ANA MARIA | [address] | [place], [place] | | | R[place]ARDO [place] [facility] | [address] | [address] | | | TESTS | | | [...] [facility] | [address] [address] | [place] [address] | | | SERVICES, CORE | TABITHA [...] [facility] | [address] | [place], [place] | | | CARDIOLOGY | [address] | [address] | | + + + + + [...] [facility] | [address] | [place], [place] | | | JULIANN SILVA OF CARE | [address] | [address] | | | TESTS | | | | + + + + + QV-JW-JTN-HB,POC RT (03/19/2017 1:04 PM PDT) + + [...] [facility] | [address] | [place], [place] | | | JULIANN SILVA OF CARE | [address] | [address] | | | TESTS | | | [...] + + + + | PRODUCT | [id number] | | [facility] | | | UNIT [...] + + + + | EXPIRATION | [id number] | | [facility] | | | DATE [...] + + + + | BLOOD | [id number] | | [facility] | | | PRODUCT [...] [facility] | [address] | [place] [address] | | | SERVICES, | [address] [...] + + + + | PRODUCT | [id number] | | [facility] | | | UNIT [...] + + + + | EXPIRATION | [id number] | | [facility] | | | DATE [...] + + + + | BLOOD | [id number] | | [facility] | | | PRODUCT [...] [facility] | [address] | [place] [address] | | | SERVICES, | [address] [...] + + + + | PRODUCT | [id number] | | [facility] | | | UNIT [...] + + + + | EXPIRATION | [id number] | | [facility] | | | DATE [...] + + + + | BLOOD | [id number] | | [facility] | | | PRODUCT [...] LABORATORY | [address] | [place] [address] | | | SERVICES, | [address] [...] + + + + | PRODUCT | [id number] | | [facility] | | | UNIT [...] + + + + | EXPIRATION | [id number] | | [facility] | | | DATE [...] + + + + | BLOOD | [id number] | | [facility] | | | PRODUCT [...] [facility] | [address] | [place] [address] | | | SERVICES, | [address] [...] + | [facility] | [address] [facility] | [place] [address] | | | SERVICES, CORE | TABITHA [...] | | | LABORATORY | | | [employer] [employer] [employer] | | | SERVICES, | | | [...] [facility] | [address] | [place] [address] | | | ARASH, ИРИНА | PARK [...] [facility] | [address] | [place] [address] | | | SERVICES, CORE | PARK [...] [facility] | [address] | [place] [address] | | | SERVICES, CORE | TABITHA [...] GISELL Preston PhD [place] [address] [id number] [place], | | | [place] [address] | | + + + ABG-FULL ABL, POC (03/19/2017 12:14 PM PDT) + + + + + + | Component | Value | Ref Range | Performed | Pathologist | | | | | At | Signature | + + + + + + | PH | 7.42 | 7.37 - 7.44 | [facility] - | | | ARTERIAL, [...] - [facility] | [address] | [place], [place] | | | JULIANN SILVA OF CARE | [address] | [address] | | | TESTS | | | [...] ANA MARIA | [address] | [place], [place] | | | JULIANN SILVA OF CARE | [place] | [address] | | | TESTS | | | | + + + + + YN-UL-THE-HB,POC RT (03/19/2017 10:24 AM PDT) + + [...] - [facility] | [address] | [place], [place] | | | JULIANN SILVA OF CARE | [address] | [address] | | | TESTS | | | [...] [facility] | [address] | [place], [place] | | | RICARDO POINT OF CARE | [address] | [address] | | | TESTS | | | | + + + + + TN-BV-HSN-HB,POC RT (03/19/2017 10:06 AM PDT) + + [...] + + + | [facility] | [address] | [place], [place] | | | R[facility]ARDO POINT OF CARE | [address] | [address] | | | TESTS | | | | + + + + + GF-LR-MFJ-KARY ISIDRO RT (03/19/2017 9:51 AM PDT) + [...] MARIA | [address] | [place], [place] | | | JULIANN SILVA OF [facility] | [address] | [address] | | | TESTS | | | [...] + + + + | PRODUCT | [id number] | | [facility] | | | UNIT [...] + + + + | EXPIRATION | [id number] | | [facility] | | | DATE [...] + + + + | BLOOD | [id number] | | [facility] | | | PRODUCT [...] [facility] | [address] | [place] [address] | | | SERVICES, | [address] [...] + + + + | PRODUCT | [id number] | | [facility] | | | UNIT [...] + + + + | EXPIRATION | [id number] | | [facility] | | | DATE [...] + + + + | BLOOD | [id number] | | [facility] | | | PRODUCT [...] [facility] | [address] | [place] [address] | | | SERVICES, | [address] [...] + + + + | PRODUCT | [id number] | | [facility] | | | UNIT [...] + + + + | EXPIRATION | [id number] | | [facility] | | | DATE [...] + + + + | BLOOD | [id number] | | [facility] | | | PRODUCT [...] [facility] | [address] | [place] [address] | | | SERVICES, | [address] [...] + + + + | PRODUCT | [id number] | | [facility] | | | UNIT [...] + + + + | EXPIRATION | [id number] | | [facility] | | | DATE [...] + + + + | BLOOD | [id number] | | [facility] | | | PRODUCT [...] [facility] | [address] | [place] [address] | | | SERVICES, | [address] [...] Endotracheal | RADIOLOGY VOICE | | tube, [place]-Олег catheter and enteric tube remain in place. [...] Note | + + | Service Account, [employer] - 03/19/2017 9:17 AM PDT EXAM: SC CHEST 1 | | VIEW HISTORY: ECMO. Evaluate cannula placement.COMPARISON: YesterdayFINDINGS: | | Endotracheal tube, [place]-Олег catheter and enteric tube remain in place. [...] - MARRAND[facility] | [address] | [place], [place] | | | JULIANN SILVA OF CARE | [address] | [address] | | | TESTS | | | [...] [facility] | [address] | [place], [place] | | | JULIANN SILVA OF CARE | [address] | [address] | | | TESTS | | | [...] [facility] | [address] | [place] [address] | | | SERVICES, CORE | PARK [...] - MARRANDIAM | [address] | [place], [place] | | | [facility] POINT OF CARE | [address] | [address] | | | TESTS | | | [...] (H) | 70 - 99 mg/dL | [facility] - | | | GLUCOSE, [...] + + + | [facility] | [address] | [place], [place] | | | JULIANN SILVA OF [facility] | [address] | [address] | | | TESTS | | | [...] [facility] | [address] | [place], [place] | | | JULIANN SILVA OF [place] | [place] | [address] | | | TESTS | | | [...] ANA MARIA | [address] | [place], [place] | | | [facility] POINT OF CARE | [address] | [address] | | | TESTS | | | [...] | + + + + + | [facility] | [address] | [place] [address] | | | SERVICES, CORE | TABITHA [...] (H) | 70 - 99 mg/dL | [facility] - | | | GLUCOSE, [...] [facility] | [address] | [place], [place] | | | JULIANN SILVA OF [place] | [place] | [address] | | | TESTS | | | [...] [facility] | [address] | [place], [place] | | | JULIANN SILVA OF CARE | [address] | [address] | | | TESTS | | | [...] (H) | 70 - 99 mg/dL | [facility] - | | | GLUCOSE, [...] MARIA | [address] | [place], [place] | | | [facility] POINT OF CARE | [address] | [address] | | | TESTS | | | [...] | + + + + + | [facility] | [address] [facility] | [place] [address] | | | ARASH, ИРИНА | TABITHA [...] 04/17/2017 at 9:05 AM | | | aMrino Carvajal MD. | | + + + + + + + + | Performing | Address | City/State/Zipcode | Phone Number | | Organization | | | | + + + + + | [facility] | [address] | [place], [place] | | | JULIANN SILVA OF [facility] | [place] | [address] | | | TESTS | | | [...] [facility] | [address] | [place] [address] | | | SERVICES, CORE | PARK [...] | + + + + + | [facility] | [address] | [place] [address] | | | SERVICES, CORE | PARK [...] | + + + + + | [facility] | [address] | [place] [address] | | | SERVICES, CORE | TABITHA [...] [facility] | [address] | [place] [address] | | | SERVICES, CORE | TABITHA [...] [facility] | [address] | [place] [address] | | | SERVICES, CORE | PARK [...] [facility] | [address] | [place] [address] | | | ARASH, ИРИНА | TABITHA [...] | | | LABORATORY | | | [employer] [employer] | | | SERVICES, | | | [...] + | [facility] | [address] [facility] | [place] [address] | | | SERVICES, CORE | TABITHA [...] [facility] | [address] | [place] [address] | | | SERVICES, CORE | PARK [...] | + + + + + | [facility] | [address] [facility] | [place] [address] | | | SERVICES, CORE | PARK [...] (H) | 70 - 99 mg/dL | [facility] - | | | GLUCOSE, [...] [facility] | [address] | [place], [place] | | | JULIANN SILVA OF [place] | [place] | [address] | | | TESTS | | | [...] | + + + + + | [facility] | [address] | [place] [address] | | | SERVICES, CORE | TABITHA [...] [facility] | [address] | [place], [place] | | | [facility] POINT OF CARE | [address] | [address] | | | TESTS | | | [...] [facility] | [address] | [place], [place] | | | [facility] POINT OF CARE | [address] | [address] | | | TESTS | | | [...] | + + + + + | [facility] | [address] | [place] [address] | | | SERVICES, CORE | TABITHA [...] (H) | 70 - 99 mg/dL | [facility] - | | | GLUCOSE, [...] [facility] | [address] | [place], [place] | | | JULIANN SILVA OF [facility] | [address] | [address] | | | TESTS | | | [...] [facility] | [address] | [place], [place] | | | JULIANN SILVA OF CARE | [address] | [address] | | | TESTS | | | [...] ANA MARIA | [address] | [place], [place] | | | [facility] POINT OF CARE | [address] | [address] | | | TESTS | | | [...] [facility] | [address] | [place] [address] | | | SERVICES, CORE | PARK [...] | + + + + + | [facility] | [address] | [place] [address] | | | SERVICES, CORE | TABITHA [...] (H) | 70 - 99 mg/dL | [facility] - | | | GLUCOSE, [...] [facility] | [address] | [place], [place] | | | JULIANN SILVA OF [place] | [address] | [address] | | | TESTS | | | [...] | + + + + + | [facility] | [address] | [place] [address] | | | SERVICES, ИРИНА | TABITHA [...] MARIA | [address] | [place], [place] | | | JULIANN SILVA OF CARE | [place] | [address] | | | TESTS | | | [...] (H) | 70 - 99 mg/dL | [facility] - | | | GLUCOSE, [...] [facility] | [address] | [place], [place] | | | JULIANN SILVA OF CARE | [place] | [address] | | | TESTS | | | [...] | + + + + + | [facility] | [address] | [place] [address] | | | SERVICES, CORE | PARK [...] [facility] | [address] | [place] [address] | | | ARASH, ИРИНА | TABITHA [...] [facility] | [address] | [place], [place] | | | R[facility] POINT OF CARE | [address] | [address] | | | TESTS | | | [...] ANA MARIA | [address] | [place], [place] | | | [place] [facility]INT [facility] CARE | [address] | [address] | | | TESTS | | | [...] [facility] | [address] | [place] [address] | | | SERVICES, CORE | PARK [...] | + + + + + | [facility] | [address] | [place] [address] | | | SERVICES, CORE | PARK [...] [facility] | [address] | [place] [address] | | | SERVICES, CORE | PARK [...] [facility] | [address] | [place] [address] | | | SERVICES, CORE | TABITHA [...] | | | LABORATORY | | | [employer] [place] [employer] | | | SERVICES, | | | [...] [facility] | [address] | [place] [address] | | | SERVICES, CORE | TABITHA [...] | + + + + + | [facility] | [address] | [place] [address] | | | SERVICES, CORE | TABITHA [...] | + + + + + | [facility] | [address] | [place] [address] | | | ARASH, ИРИНА | TABITHA [...] [facility] | [address] | [place] [address] | | | SERVICES, CORE | PARK [...] [facility] | [address] | [place], [place] | | | [facility] POINT OF CARE | [address] | [address] | | | TESTS | | | [...] R[facility] | [address] | [place], [place] | | | [facility] POINT OF CARE | [address] | [address] | | | TESTS | | | [...] [facility] | [address] | [place] [address] | | | SERVICES, CORE | PARK [...] MARIA | [address] | [place] | | | R[place]ARDO POINT OF [facility] | [address] | [address] | | | TESTS | | | [...] [facility] | [address] | [place] [address] | | | SERVICES, CORE | PARK [...] [facility] | [address] | [place] [address] | | | SERVICES, CORE | PARK [...] | + + + + + | [facility] | [address] | [place] [address] | | | [facility] | | | | + + + [...] [facility] | [address] | [place], [place] | | | [facility] POINT OF CARE | [address] | [address] | | | TESTS | | | [...] [facility] | [address] | [place], [place] | | | JULIANN SILVA OF [place] | [address] | [address] | | | TESTS | | | [...] [facility] | [address] | [place] [address] | | | SERVICES, ИРИНА | TABITHA [...] [facility] | [address] | [place] [address] | | | ARASH, ИРИНА | TABITHA [...] (H) | 70 - 99 mg/dL | [facility] - | | | GLUCOSE, [...] [facility] | [address] | [place], [place] | | | JULIANN SILVA OF [place] | [place] | [address] | | | TESTS | | | [...] [facility] | [address] | [place], [place] | | | JULIANN SILVA OF [place] | [address] | [address] | | | TESTS | | | [...] jefferson. Enteric tube tip in the stomach. [place]ег | RECOGNITION | | catheter tip projects [...] Note | + + | Service Account, [employer] - 03/18/2017 8:39 AM PDT EXAM: SC CHEST 1 | | VIEW HISTORY: ECMO. Evaluate cannula placement.COMPARISON: YesterdayFINDINGS: | | Endotracheal tube tip is 2.5 cm above the jefferson. Enteric tube tip in the stomach. | | [place]-Олег catheter tip projects in the main pulmonary [...] [facility] | [address] | [place], [place] | | | R[facility] POINT OF CARE | [address] | [address] | | | TESTS | | | [...] MARIA | [address] | [place], [place] | | | [place] OF [facility] | [place] | [address] | | | TESTS | | | [...] [facility] | [address] | [place] [address] | | | SERVICES, CORE | TABITHA [...] [facility] | [address] | [place], [place] | | | JULIANN SILVA OF [place] | [address] | [address] | | | TESTS | | | [...] ANA MARIA | [address] | [place], [place] | | | JULIANN SILVA OF [facility] | [address] | [address] | | | TESTS | | | [...] [facility] | [address] | [place] [address] | | | SERVICES, | [address] [...] [facility] | [address] | [place] [address] | | | SERVICES, | [address] [...] + + + + | PRODUCT | [id number] | | [facility] | | | UNIT [...] + + + + | EXPIRATION | [id number] | | [facility] | | | DATE [...] + + + + | BLOOD | [id number] | | [facility] | | | PRODUCT [...] [facility] | [address] | [place] [address] | | | SERVICES, | [address] [...] MARIA | [address] | [place], [place] | | | JULIANN SILVA OF CARE | [address] | [address] | | | TESTS | | | [...] [facility] | [address] | [place] [address] | | | SERVICES, CORE | TABITHA [...] | [address] [facility] | [place] [address] | | | SERVICES, ИРИНА | TABITHA [...] [facility] | [address] | [place] [address] | | | SERVICES, CORE | PARK [...] [facility] | [address] | [place] [address] | | | SERVICES, CORE | PARK [...] | | | LABORATORY | | | [employer] [employer] | | | SERVICES, | | | [...] [facility] | [address] | [place] [address] | | | SERVICES, ИРИНА | TABITHA [...] | + + + + + | [facility] | [address] | [place] [address] | | | SERVICES, CORE | PARK [...] [facility] | [address] | [place] [address] | | | SERVICES, CORE | TABITHA [...] [facility] | [address] | [place] [address] | | | SERVICES, CORE | TABITHA [...] Zoe [facility] | [address] | [place], [place] | | | JULIANN SILVA OF [facility] | [place] | [address] | | | TESTS | | | [...] [facility] | [address] | [place] [address] | | | SERVICES, CORE | TABITHA [...] [facility] | [address] | [place] [address] | | | ИРИНА ANTOINE | TABITHA [...] ANA MARIA | [address] | [place], [place] | | | JULIANN SILVA OF CARE | [place] | [address] | | | TESTS | | | [...] (H) | 60 - 99 mg/dL | [facility] - | | | GLUCOSE, [...] R[facility] | [address] | [place], [place] | | | JULIANN SILVA OF CARE | [place] | [address] | | | TESTS | | | [...] MARIA | [address] | [place], [place] | | | JULIANN SILVA OF [place] | [address] | [address] | | | TESTS | | | [...] [facility] | [address] | [place], [place] | | | JULIANN SILVA OF CARE | [address] | [address] | | | TESTS | | | [...] | + + + + + | [facility] | [address] | [place] [address] | | | SERVICES, CORE | TABITHA [...] (H) | 60 - 99 mg/dL | [facility] - | | | GLUCOSE, [...] [facility] | [address] | [place], [place] | | | [facility] POINT OF CARE | [address] | [address] | | | TESTS | | | [...] [facility] | [address] | [place] [address] | | | SERVICES, ИРИНА | PARK [...] [facility] | [address] | [place] [address] | | | ИРИНА ANTOINE | PARK [...] [facility] | [address] | [place] [address] | | | SERVICES, CORE | PARK [...] [facility] | [address] | [place] [address] | | | SERVICES, CORE | TABITHA [...] | + + + + + | [facility] | [address] | [place] [address] | | | SERVICES, CORE | PARK [...] [facility] | [address] | [place], [place] | | | JULIANN SILVA OF CARE | [place] | [address] | | | TESTS | | | [...] (H) | 60 - 99 mg/dL | [facility] - | | | GLUCOSE, [...] MARIA | [address] | [place], [place] | | | JULIANN SILVA OF [facility] | [address] | [address] | | | TESTS | | | [...] | 58 (L) | >300 mmHg | [facility] | | | RATIO | [...] | + + + + + | [facility] | [address] | [place] [address] | | | SERVICES, CORE | PARK [...] [facility] | [address] | [place], [place] | | | JULIANN SILVA OF CARE | [place] | [address] | | | TESTS | | | [...] MARIA | [address] | [place], [place] | | | JULIANN SILVA OF [facility] | [address] | [address] | | | TESTS | | | [...] + + + + | PRODUCT | [id number] | | [facility] | | | UNIT [...] + + + + | EXPIRATION | [id number] | | [facility] | | | DATE [...] + + + + | BLOOD | [id number] | | [facility] | | | PRODUCT [...] | + + + + + | [facility] | [address] | [place] [address] | | | SERVICES, | [address] [...] + + + + | PRODUCT | [id number] | | [facility] | | | UNIT [...] + + + + | EXPIRATION | [id number] | | [facility] | | | DATE [...] + + + + | BLOOD | [id number] | | [facility] | | | PRODUCT [...] | + + + + + | [facility] | [address] [facility] | [place] [address] | | | SERVICES, | [address] [...] [facility] | [address] | [place], [place] | | | JULIANN SILVA OF CARE | [address] | [address] | | | TESTS | | | [...] [facility] | [address] | [place] [address] | | | SERVICES, CORE | PARK [...] [facility] | [address] | [place] [address] | | | SERVICES, CORE | PARK [...] [facility] | [address] | [place] [address] | | | SERVICES, CORE | PARK [...] [facility] | [address] | [place] [address] | | | SERVICES, CORE | TABITHA [...] | | | LABORATORY | | | [employer] | | | SERVICES, | | | [...] [facility] | [address] | [place] [address] | | | SERVICES, CORE | PARK [...] [facility] | [address] | [place] [address] | | | SERVICES, CORE | TABITHA [...] [facility] | [address] | [place] [address] | | | SERVICES, CORE | TABITHA [...] | + + + + + | [facility] | [address] | [place] [address] | | | ARASH, ИРИНА | PARK [...] [facility] | [address] | [place], [place] | | | [facility] POINT OF CARE | [address] | [address] | | | TESTS | | | [...] | + + + + + | [facility] | [address] | [place] [address] | | | SERVICES, CORE | TABITHA [...] [facility] | [address] | [place], [place] | | | R[facility] POINT OF CARE | [address] | [address] | | | TESTS | | | [...] Note | + + | Service Account, [employer] - 03/17/2017 6:18 PM PDT [...] Note | + + | Service Account, [employer] - 03/17/2017 6:17 PM PDT [...] [facility] | [address] | [place], [place] | | | [facility] POINT OF CARE | [address] | [address] | | | TESTS | | | [...] | + + + + + | [facility] | [address] | [place] [address] | | | SERVICES, CORE | TABITHA [...] | EJECTION | 22.5 | % | [facility] DEPT | | | FRACTION | | | OF | | | [facility] | | | CARDIOLOGY | | | VALUE | | | | | + + + + + + + + | Specimen | + + | | + + + + -------+ | Narrative | Performed At | + + -------+ | [facility] | [facility] DE PT OF | | [facility] | CARDIOLOG Y | | [place] [address] [address] [address] | | | [place] [address] Pt Name: | | | RON MCKEON Study Date/Time 03/17/2017 / 10:30:26 | | | AMMRN: [id number] Most recent | | | prior: 03/15/2017Acc #: [id number] No. | | | previous echos: 1DOB: 1955 61 years Heart | | | Rate: 139 bpmHeight: 69.0 | | | in Blood Pressure: 133/83 | | | mm/HgWeight: 258.0 | | | lb Gender: | | | MBSA: 2.30 m2 Order | | | ID: [id number] Promotional Model: Mauri Domingo [facility] | | | Referring Provider: Mellisa uRbalcava [facility] | | | Performed: Limited 2D, Color Doppler and Spectral Doppler | | | Limited.Study Quality: Fair.Exam Indication: Heart failure; ECMO; s/p | | | STEMIHistory: 61 year old male with a past medical history significant | | | for hypertension, hyperlipidemia, ongoing tobacco use and | | | pre-diabetes who is transferred to [facility] with cardiogenic shock in the [...] | | | Report electronically signed by: [id number] Jen Ovalle MD, PhD | | | (03/17/2017, 1:53:40 PM) Final | | | | | |Report electronically signed by: [id number] Jen Ovalle MD, PhD (03/17/2017, | | |1:53:40 PM) | | | | | | | | | | | | Final | | + + -------+ + + | Procedure Note | + + | Interface, Cardiology Results - 03/17/2017 1:53 PM [facility] [employer] | | [facility] [address] [place] [address] | | [place], [place] [address] Pt Name: RON MCKEON Study Date/Time 03/17/2017 / 10:30:26 AMMRN: [id number] Most | | recent prior: 03/15/2017Acc #: [id number] No. previous echos: 1DOB: | | 1955 61 years Heart Rate: 139 bpmHeight: 69.0 in Blood | | Pressure: 133/83 mm/HgWeight: 258.0 lb Gender: MBSA: | | 2.30 m2 Order ID: [id number] Promotional Model: Mauri Domingo | | RDCSReferring Provider: Mellisa Rubalcava Location: [facility] Performed: | | Limited 2D, Color Doppler and Spectral Doppler Limited.Study Quality: Fair.Exam | | Indication: Heart failure; ECMO; s/p STEMIHistory: 61 year old male with a past medical | | history significant for hypertension, hyperlipidemia, ongoing tobacco use and | | pre-diabetes who is transferred to [facility] with cardiogenic shock in the [...] | | Scoring: Report electronically signed by: [id number] Jen Ovalle MD, PhD (03/17/2017, | | [...] | | | |Report electronically signed by: [id number] Jen Ovalle MD, PhD (03/17/2017, | |1:53:40 PM) | | | | | | | | Final | + + + + + + + | Performing | Address | City/State/Zipcode | Phone Number | | Organization | | | | + + + + + | [facility] | [address] | [place], [place] | | | CARDIOLOGY | [address] | [address] | | + + + + + [...] [facility] | [address] | [place], [place] | | | [facility] | [address] | [address] | | | TESTS | | | [...] [facility] | [address] | [place], [place] | | | [facility] | [address] | [address] | | | TESTS | | | [...] [facility] | [address] | [place] [address] | | | SERVICES, CORE | [address] [...] [facility] | [address] | [place] [address] | | | SERVICES, CORE | [address] [...] [facility] | [address] | [place], [place] [address] | | | SERVICES, ИРИНА | TABITHA [...] MARQU[facility] | [address] | [place], [place] | | | RICARDO POINT OF CARE | [place] | [address] | | | TESTS | | | [...] - MARQUAM | [address] | [place], [place] | | | RICARDO POINT OF CARE | [address] | [address] | | | TESTS | | | [...] + + + | EULOGIO [facility] | [address] | [place], [place] | | | RICARDO POINT OF [facility] | [address] | [address] | | | TESTS | | | [...] [facility] | [address] | [place] [address] | | | SERVICES, CORE | TABITHA [...] | + + + + + | [facility] | [address] | [place] [address] | | | SERVICES, CORE | TABITHA [...] | + + | Service Account, Arely Vizolution In Interface - 03/17/2017 9:44 AM PDT [...] BLUAM | [address] | [place], [place] | | | JULIANN SILVA OF CARE | [address] | [address] | | | TESTS | | | [...] [facility] | [address] | [place] [address] | | | SERVICESИРИНА | [address] [...] | | | LABORATORY | | | [facility] [facility] | | | SERVICES, | | | [...] [facility] | [address] | [place] [address] | | | SERVICES, ИРИНА | TABITHA [...] | + + + + + | [facility] | [address] | [place] [id number] | | | ИРИНА ANTOINE | TABITHA [...] MARQUAM | [address] | [place], [place] | | | JULIANN SILVA OF CARE | [address] | [address] | | | TESTS | | | [...] | + + + + + | [facility] | [address] | [place] [address] | | | SERVICES, CORE | PARK [...] + | [facility] | [address] [facility] | [place] [address] | | | SERVICES, CORE | TABITHA [...] [facility]ALTH[facility]ARE [facility]ENTER | [address] | [place] [address] | | | SERVICES, CORE | TABITHA [...] | + + + + + | [facility] | [address] | [place] [address] | | | ARASH, ИРИНА | PARK [...] [facility] | [address] | [place] [address] | | | SERVICES, CORE | PARK [...] [facility] | [address] | [place] [address] | | | SERVICES, CORE | PARK [...] [facility] | [address] | [place] [address] | | | SERVICES, CORE | PARK [...] [facility] | [address] | [place] [address] | | | SERVICES, CORE | TABITHA [...] | + + + + + | [facility] | [address] | [place] [address] | | | SERVICES, CORE | PARK [...] [facility] | [address] | [place] [address] | | | SERVICES, CORE | TABITHA [...] DEPT OF | [address] | [place], [place] | | | CARDIOLOGY | [address] | [address] | | + + + + + UL-KO-MTJ-HB,POC RT (03/17/2017 12:44 AM PDT) + + [...] RODGERS | [address] | [place], [place] | | | RICARDO POINT OF CARE | [address] | [address] | | | TESTS | | | [...] MARRANDIAM | [address] | [place], [place] | | | JULIANN SILVA OF CARE | [place] | [address] | | | TESTS | | | [...] BLUAM | [address] | [place], [place] | | | JULIANN SILVA OF CARE | [address] | [address] | | | TESTS | | | [...] [facility] | [address] | [place] [address] | | | SERVICES, ИРИНА | TABITHA [...] MARQUAM | [address] | [place], [place] | | | RICARDO POINT OF CARE | [address] | [address] | | | TESTS | | | [...] ANA MARIA | [address] | [place], [place] | | | RICARDO POINT OF CARE | [address] | [address] | | | TESTS | | | [...] [facility] | [address] | [place] [address] | | | SERVICES, CORE | TABITHA [...] MARIA | [address] | [place], [place] | | | JUILANN SILVA OF ALEXIS | [address] | [address] | | | TESTS | | | [...] | + + + + + | [facility] | [address] | [place] [address] | | | ИРИНА ANTOINE | TABITHA [...] (H) | 60 - 99 mg/dL | [facility] - | | | GLUCOSE, [...] MARIA | [address] | [place], [place] | | | RICARDO POINT OF CARE | [address] | [address] | | | TESTS | | | [...] MARIA | [address] | [place], [place] | | | JULIANN SILVA OF [place] | [place] | [address] | | | TESTS | | | [...] | pause verifies correct patient, procedure, equipment, ict support technicians | | | and site/side marked as [...] | [address] [facility] | [place] [address] | | | SERVICES, CORE | PARK [...] [facility] | [address] | [place] [address] | | | SERVICES, CORE | PARK [...] [facility] | [address] | [place] [address] | | | SERVICES, CORE | PARK [...] [facility] | [address] | [place] [address] | | | SERVICES, CORE | PARK [...] | | | LABORATORY | | | [place] | | | SERVICES, | | | [...] [facility] | [address] | [place] [address] | | | SERVICES, CORE | TABITHA [...] [facility] | [address] | [place] [address] | | | SERVICES, CORE | PARK [...] | + + + + + | [facility] | [address] | [place] [address] | | | SERVICES, CORE | TABITHA [...] RODGERS | [address] | [place], [place] | | | JULIANN SILVA OF [place] | [address] | [address] | | | TESTS | | | [...] MARIA | [address] | [place], [place] | | | JULIANN SILVA OF [place] | [place] | [address] | | | TESTS | | | | + + + + + CAPILLARY BLOOD GLUCOSE (NO CHG), POC (03/16/2017 1:16 PM PDT) + +-------+ + + + | Component | Value | Ref Range | Performed | Pathologist | | | | | At | Signature | + +-------+ + + + | BLOOD | 90 | 60 - 99 mg/dL | [facility] - | | | GLUCOSE, [...] [facility] | [address] | [place], [place] | | | RICARDO POINT OF CARE | [address] | [address] | | | TESTS | | | [...] RODGERS | [address] | [place], [place] | | | GURINDER SILVA | [place] | [address] | | | TESTS | | | [...] + | [facility] | [address] [facility] | [place] [address] | | | SERVICES, ИРИНА | TABITHA [...] | | | LABORATORY | | | [employer] | | | SERVICES, | | | [...] | + + + + + | [facility] | [address] | [place] [address] | | | SERVICES, CORE | TABITHA [...] (H) | 60 - 99 mg/dL | [facility] - | | | GLUCOSE, [...] MARIA | [address] | [place], [place] | | | GURINDER SILVA | [place] | [address] | | | TESTS | | | [...] | + + + + + | [facility] | [address] | [place] [address] | | | ИРИНА ANTOINE | TABITHA [...] [facility] | [address] | [place], [place] | | | JULIANN SILVA OF CARE | [place] | [address] | | | TESTS | | | | + + + + + OPERATION RECORD (03/16/2017 9:30 AM PDT) + + | Procedure Note | + + | Dale Mak MD - 03/15/2017 3:42 PM PDT Date of Service: 03/15/2017 Attending | | Surgeon:Ron Powell MD. Carpenter Assistant Installer(s):Dale Mak MD. | | Preoperative Diagnoses: 1.Cardiogenic [...] The | | patient was transferred to [facility] for further management. At [facility], the patient continued | | [...] cannulation with micropuncture | | wire. A 7-Kosovan sheath was placed in an antegrade direction down the SFA for distal | | perfusion. A 19-Kosovan arterial cannula was placed in a retrograde [...] 03/15/2017 15:23:00DT: 03/15/2017 15:42:27Job #: | | [id number] | | | |A 19-Kosovan arterial cannula was placed in a retrograde [...] |HS/MODL | | | | | | /[id number] | + + CBC (HEMOGRAM) ONLY (03/16/2017 [...] [facility] | [address] | [place] [address] | | | SERVICES, CORE | PARK [...] [facility] | [address] | [place] [address] | | | SERVICES, CORE | PARK [...] | + + + + + | [facility] | [address] | [place] [address] | | | SERVICES, CORE | TABITHA [...] MARQU[facility] | [address] | [place], [place] | | | JULIANN SILVA OF [place] | [address] | [address] | | | TESTS | | | [...] BLUAM | [address] | [place], [place] | | | JULIANN SILVA OF CARE | [place] | [address] | | | TESTS | | | [...] R[facility] | [address] | [place], [place] | | | RICARDO POINT OF CARE | [address] | [address] | | | TESTS | | | [...] Endotracheal | RADIOLOGY VOICE | | tube, [place]-Олег catheter and enteric tube remain in place. [...] Note | + + | Service Account, [employer] In Interface - 03/16/2017 8:27 AM PDT EXAM: SC CHEST 1 | | VIEW HISTORY: Evaluate cannula placement. heart failure.COMPARISON: YesterdayFINDINGS: | | Endotracheal tube, [place]-Олег catheter and enteric tube remain in place. [...] MARIA | [address] | [place], [place] | | | RICARDO POINT OF CARE | [address] | [address] | | | TESTS | | | [...] (H) | 60 - 99 mg/dL | [facility] - | | | GLUCOSE, [...] R[facility] | [address] | [place], [place] | | | JULIANN SILVA OF [facility] | [place] | [address] | | | TESTS | | | | + + + + + GE-RW-XLB-KARY ISIDRO RT (03/16/2017 3:42 AM PDT) + [...] MARQU[facility] | [address] | [place], [place] | | | JULIANN SILVA OF [place] | [address] | [address] | | | TESTS | | | [...] R[facility] | [address] | [place], [place] | | | RICARDO POINT OF CARE | [address] | [address] | | | TESTS | | | [...] [facility] | [address] | [place] [address] | | | SERVICES, CORE | TABITHA [...] R[facility] | [address] | [place], [place] | | | JULIANN SILVA OF [place] | [address] | [address] | | | TESTS | | | [...] | + + + + + | [facility] | [address] | [place] [address] | | | SERVICES, ИРИНА | TABITHA [...] [facility] | [address] | [place] [address] | | | SERVICES, CORE | PARK [...] | | | LABORATORY | | | [place] | | | SERVICES, | | | [...] | + + + + + | [facility] | [address] | [place] [address] | | | SERVICES, CORE | TABITHA [...] [facility] | [address] | [place] [address] | | | SERVICES, CORE | PARK [...] | + + + + + | [facility] | [address] | [place] [address] | | | SERVICES, CORE | PARK [...] | + + + + + | [facility] | [address] | [place] [address] | | | ARSAH, ИРИНА | [address] | | | [...] | + + + + + | [facility] | [address] | [place] [address] | | | SERVICES, CORE | TABITHA [...] (H) | 60 - 99 mg/dL | [facility] - | | | GLUCOSE, [...] R[facility] | [address] | [place], [place] | | | JULIANN SILVA OF CARE | [address] | [address] | | | TESTS | | | [...] [facility] | [address] | [place] [address] | | | SERVICES, CORE | PARK [...] E[facility]OGIO [facility] | [address] | [place], [place] | | | JULIANN SILVA OF [facility] | [address] | [address] | | | TESTS | | | [...] + | [facility] | [address] [facility] | [place] [address] | | | SERVICES, CORE | TABITHA [...] | | | LABORATORY | | | [place] | | | SERVICES, | | | [...] AST CMNT | No Hemo | | [facility] | | | | | [...] | + + + + + | [facility] | [address] | [place] [address] | | | SERVICES, CORE | [address] | | | + + + + + PE-VO-HHZ-HB,POC RT (03/16/2017 12:22 AM PDT) + + [...] MARQUAM | | | | | | JUILANN SILVA | | [...] [facility] | [address] | [place], [place] | | | RICARDO POINT OF CARE | [address] | [address] | | | TESTS | | | [...] + + + | [facility] | [address] | [place], [place] | | | RICARDO POINT OF CARE | [address] | [address] | | | TESTS | | | [...] MAR[facility] | [address] | [place], [place] | | | RICARDO POINT OF CARE | [address] | [address] | | | TESTS | | | [...] EULOGIO R[facility] | [address] | [place], [place] | | | RICARDO POINT OF [facility] | [address] | [address] | | | TESTS | | | [...] | + + | Service Account, Arely Vizolution In Interface - 03/16/2017 8:27 AM PDT [...] MARIA | [address] | [place], [place] | | | JULIANN SILVA OF ALEX[place] | [address] | [address] | | | TESTS | | | [...] MARIA | [address] | [place], [place] | | | RICARDO POINT OF CARE | [address] | [address] | | | TESTS | | | [...] [facility] | [address] | [place] [address] | | | SERVICES, CORE | PARK [...] [facility] | [address] | [place] [address] | | | SERVICES, CORE | PARK [...] [facility] | [address] | [place] [address] | | | SERVICES, [facility] | [address] | | | + [...] | Ambubag and suction available at bedside. [facility] Mac 4 used to | | [...] R[facility] | [address] | [place], [place] | | | JULIANN SILVA OF ALEX[place] | [address] | [address] | | | TESTS | | | | + + + + + VZ-ZK-UCI-HB,POC RT (03/15/2017 7:39 PM PDT) + + [...] [facility] | [address] | [place], [place] | | | JULIANN SILVA OF [place] | [address] | [address] | | | TESTS | | | [...] R[facility] | [address] | [place], [place] | | | RICARDO POINT OF CARE | [address] | [address] | | | TESTS | | | [...] [facility] | [address] | [place], [place] | | | HILL, POINT OF CARE | [address] | [address] | | | TESTS | | | | + + + + + X-RAY PORTABLE CHEST 1 VIEW (03/15/2017 5:51 PM PDT) + + | Specimen | + + | | + + + + + | Narrative | Performed At | + + + | STUDY: SC CHEST 1 VIEW 03/15/17 17:40:08 COMPARISON: 03/15/17 at | [facility] | | 3:52 PM. HISTORY: [...] | | + +---------+ + + | [facility] RADIOLOGY | | | | [...] given by: Power of | | | talent associate Patient identity confirmed per policy: Yes Team Pause: | | | Immediatly prior to the procedure a pause per protocol was called. A | | | pause verifies correct patient, procedure, equipment, ict support technicians | | | and site/side marked as [...] modified Seldinger technique (a | | | vlpzljwa-eueq-kck-mpphog-jrrj-sibd-ennnshv-ipj-mkdxlskw) was used for | | | vessel [...] Name: Ron Mckeon MRN: | | | [id number] 03/15/2017 Time: 5:26 PM Diagnosis: shock At [...] Jose Ramon Alvarado | | | R2, [facility] Emergency Medicine Personal Pager: [phone] | | | | | + + + LACTATE (03/15/2017 4:49 PM PDT) + + + + + + | Component | Value | Ref Range | Performed | Pathologist | | | | | At | Signature | + + + + + + | LACTATE | 7.5 () | mmol/L | [facility] | | | | | [...] | + + + + + | [facility] | [address] | [place] [address] | | | ИРИНА ANTOINE | TABITHA [...] (H) | 60 - 99 mg/dL | [facility] - | | | GLUCOSE, [...] RODGERS | [address] | [place], [place] | | | RICARDO POINT OF CARE | [address] | [address] | | | TESTS | | | [...] BLUAM | [address] | [place], [place] | | | JULIANN SILVA OF CARE | [place] | [address] | | | TESTS | | | [...] MARQU[facility] | [address] | [place], [place] | | | RICARDO POINT OF [facility] | [address] | [address] | | | TESTS | | | [...] RODGERS | [address] | [place], [place] | | | JULIANN SILVA OF CARE | [place] | [address] | | | TESTS | | | [...] MARIA | [address] | [place], [place] | | | RICARDO POINT OF CARE | [place] | [address] | | | TESTS | | | [...] [facility] | [address] | [place] [address] | | | SERVICES, CORE | TABITHA [...] | [facility] | [address] | [place] [address] | | | SERVICES, CORE | TABITHA [...] [facility] | [address] | [place] [address] | | | SERVICES, CORE | PARK [...] [facility] | [address] | [place] [address] | | | SERVICES, CORE | PARK [...] | | | LABORATORY | | | [employer] [employer] | | | SERVICES, | | | [...] | + + + + + | [facility] | [address] | [place] [address] | | | SERVICES, CORE | TABITHA [...] Division of Cardiothoracic Surgery | | | [facility] - Mail Code [id number] [id number] | | | [place] [id number] | | + + + X-RAY PORTABLE CHEST 1 VIEW (03/15/2017 2:32 PM PDT) + + | Specimen | + + | | + + + + + | Narrative | Performed At | + + + | STUDY: SC CHEST 1 VIEW 03/15/17 14:21:08 COMPARISON: 03/15/17. | [facility] | | HISTORY: Introducer placement-June [...] Note | + + | Service Account, [employer] In Interface - 03/15/2017 2:46 PM [...] + + + + | PRODUCT | [id number] | | [facility] | | | UNIT [...] + + + + | EXPIRATION | [id number] | | [facility] | | | DATE [...] + + + + | BLOOD | [id number] | | [facility] | | | PRODUCT [...] | + + + + + | [facility] | [address] | [place] [address] | | | SERVICES, | [address] [...] + + + + | PRODUCT | [id number] | | [facility] | | | UNIT [...] + + + + | EXPIRATION | [id number] | | [facility] | | | DATE [...] + + + + | BLOOD | [id number] | | [facility] | | | PRODUCT [...] [facility] | [address] | [place] [address] | | | SERVICES, | [address] [...] + + + + | PRODUCT | [id number] | | [facility] | | | UNIT [...] + + + + | EXPIRATION | [id number] | | [facility] | | | DATE [...] + + + + | BLOOD | [id number] | | [facility] | | | PRODUCT [...] | [address] [facility] | [place] [address] | | | SERVICES, | [address] [...] + + + + | PRODUCT | [id number] | | [facility] | | | UNIT [...] + + + + | EXPIRATION | [id number] | | [facility] | | | DATE [...] + + + + | BLOOD | [id number] | | [facility] | | | PRODUCT [...] [facility] | [address] | [place] [address] | | | SERVICES, | [address] | | | | TRANSFUSION MEDICINE | | | | + + + + + SE-OV-XPF-HB,POC RT (03/15/2017 1:23 PM PDT) + + [...] R[facility] | [address] | [place], [place] | | | JULIANN SILVA OF ALEXIS | [address] | [address] | | | TESTS | | | [...] [facility] | [address] | [place], [place] | | | RICARDO POINT OF CARE | [address] | [address] | | | TESTS | | | [...] Performed At | + + + | [facility] | [facility] DEPT OF | | [facility] Adult Echocardiography | CARDIOLOGY | | Laboratory [address] [place] [address], | | | [place] [address] Pt Name: | | | RON Neena MCKEON Study Date/Time 03/15/2017 / 12:54:21 | | [id number] Most recent | | | prior: -Acc #: [id number] No. previous | | | echos: 0DOB: 1955 61 years Heart Rate: | | | 145 bpmHeight: Blood | | | Pressure: 90/67 mm/HgWeight: 249.0 | | | lb Gender: | | | MBSA: 2.34 m2 Order | | | ID: [id number] Promotional Model: Vahid NOBLES | | | Referring Provider: [...] Report electronically signed by: | | | [id number] Yajaira Johnson MD (03/15/2017, 3:38:52 PM) Final | | | | | | | | | | | | Final | | + + + + + | Procedure Note | + + | Interface, Cardiology Results - 03/15/2017 3:38 PM [facility] [employer] | | [facility]ch[facility] Laboratory [address] [place] [address] | | [place], [place] [address] Pt Name: RON Chaudhary | | MIKE Study Date/Time 03/15/2017 / 12:54:21 PMMRN: [id number] Most | | recent prior: -Acc #: [id number] No. previous echos: 0DOB: 1955 61 | | years Heart Rate: 145 bpmHeight: Blood Pressure: 90/67 | | mm/HgWeight: 249.0 lb Gender: MBSA: 2.34 m2 | | Order ID: [id number] Promotional Model: Vahid Parmar RCSReferring Provider: | | Gaurav [...] values Report electronically signed by: | | [id number] Yajaira Johnson MD (03/15/2017, 3:38:52 PM) Final [...] | | | |Report electronically signed by: [id number] Yajaira Johnson MD (03/15/2017, 3:38:52 PM) | | | | | | | | Final | + + + + + + + | Performing | Address | City/State/Zipcode | Phone Number | | Organization | | | | + + + + + | [facility] DEPT OF | [address] | [place], [place] | | | CARDIOLOGY | [address] | [address] | | + + + + + [...] DEPT OF | [address] | [place], [place] | | | CARDIOLOGY | [address] | [address] | | + + + + + [...] [facility] | [address] | [place] [address] | | | SERVICES, | [address] [...] [facility] | [address] | [place] [address] | | | SERVICES, | [address] [...] + + + + | EULOGIO [facility] | [address] | [place] [address] | | | SERVICES, CORE | TABITHA [...] | + + + + + | [facility] | [address] | [place] [address] | | | ИРИНА ANTOINE | TABITHA [...] [facility] | [address] | [place] [address] | | | SERVICES, | [address] [...] [facility] | [address] | [place] [address] | | | SERVICES, ИРИНА | TABITHA [...] [facility] | [address] | [place] [address] | | | SERVICES, CORE | TABITHA [...] [facility] | [address] | [place] [address] | | | SERVICES, CORE | PARK [...] | | | LABORATORY | | | [employer] | | | SERVICES, | | | [...] | + + + + + | [facility] | [address] | [place] [address] | | | SERVICES, CORE | [address] | | | + + + + + XN-AI-RXI-HB,POC RT (03/15/2017 12:16 PM PDT) + + [...] [facility] | [address] | [place], [place] | | | R[place]ARDO [place] OF [facility] | [place] | [address] | | | TESTS | | | [...] | | | 03/15/17 at 1202, Until [facility] 04/02/17 | | | at 2030, 2nd [...] PDT | | | | | Until [facility] 04/02/17 at 203, | | | | [...] | | | | | | Until [facility] 04/02/17 at 2030, severe | | | [...] EVENING, | | | First dose on [facility] 04/02/17 at | | | 2100, Until Discontinued | | + +---+ | | | + +---+ documented in this encounter
--- OUTSIDE RECORDS SUMMARY | ~2019-02-13 | XMS | Encounter Summary ---
Demographics + + + | Address | [address] | | | [place] [address] | + + + | Home Phone [...] [place] | | | | | [address] | | + + + + + Care Team Providers + +------+ + | Care Site Safety Representative Name | Role | Phone | + +------+ + | Young Haque DO | PCP | | + +------+ + Encounter Details +--------+ + + + + | Date | Type | Department | Care Team | Description | +--------+ + + + + | 03/28/ | Abstract | [facility] | Jenny, | | | 2019 | | CARDIOLOGY [address] [facility] [address] | | | | | [place], | [place], | | | | | [place] [address] | [place] [address] | | | | | [phone] | | | | | | | [...] | | | | [address] , [facility] | | | | | | [address] | | | | | | [address] | | | | | | | | +--------+ + + + + | 03/24/ | Procedure | Cardiology | | | | 2018 | visit | | | | +--------+ + + + + | 03/24/ | Office | Cardiology | Jenny, | | | 2018 | Visit | | [facility] [address] | | | | | | [place], | | | | | | [place] [address] | | | | | | [phone] | | | | | | | [...]
--- OUTSIDE RECORDS SUMMARY | ~2019-02-13 | XMS | Encounter Summary ---
Demographics + + + | Address | [address] | | | [place] [address] | + + + | Home Phone [...] Author + + + | Author | [facility] | + + + | Organization | [facility] | + + + | Address | Unknown | + + + | Phone | Unavailable | + + + Support + + + + + | Name | Relationship | Address | Phone | + + + + + | [place] Will | ECON | [address] | | | | | [place] [address] | | + + + + + Care Team Providers + +------+ + | Care Manager Apple Name | Role | Phone | + +------+ + | Chato Matson MD | PCP | | + +------+ + Encounter Details +--------+ + + + + | Date | Type | Department | Care Team | Description | +--------+ + + + + | 03/31/ | Document-Sc | Health Information | Other, Faculty | | | 2017 | anned | Services [address] | [phone] | | | | | [address] | | | | | | Road Mailcode: | | | | | | [address] [place] [address] | | | | | | [facility] [place] | | [place], [place] | | | | | | [address] | | | | | | [phone] | | | +--------+ + + + [...]
--- OUTSIDE RECORDS SUMMARY | ~2019-02-13 | XMS | Encounter Summary ---
Demographics + + + | Address | [address] | | | [place] [address] | + + + | Home Phone [...] + + + | Author | [facility] | + + + | Organization | [facility] | + + + | Address | Unknown | + + + | Phone | Unavailable | + + + Support + + + + + | Name | Relationship | Address | Phone | + + + + + | [place] Will | ECON | [address] | | | | | [place] [address] | | + + + + + Care Team Providers + +------+ + | Care Psychiatric Assistant Name | Role | Phone | [...] | | | 2017 | Event | [facility] | MD [address] [facility] | | | | | Admitting Desk | [facility] | | | | | Located on the | [place], [place] | | | | | [address] | [address] | | | | | [facility] | [phone] | | | | | [place], [place] | | | | | | [address] | | | +--------+ + + + [...] 12:01 | | | | | Starting [facility] 03/19/17 at 1201, | | PM PDT | | | | | Until [facility] 03/19/17 at 1244 | | | | | | + +-------+ +---------+---+---+ +---+---+ | | | +---+---+ + +---------+ + +--------+---+ | propofol (DIPRIVAN) injection | New Bag | 03/19/20 | 30 | 20.34 | | | INTRAPROCEDURE CONTINUOUS PRN, | | 17 9:26 | mcg/kg/m | mL/hr | | | Starting [facility] 03/19/17 at 0926, | | AM PDT | in | | | | Until [facility] 03/19/17 at 1244 | | | [...]
--- OUTSIDE RECORDS SUMMARY | ~2019-02-13 | XMS | Encounter Summary ---
Demographics + + + | Address | [address] | | | [place] [address] | + + + | Home Phone [...] [place] | | | | | [address] | | + + + + + Care Team Providers + +------+ + | Care Cardiac Rehab Nurse Name | Role | Phone | [...] + | 11/18/ | Telephone | [facility] | Jenny, | Blood Pressure | | 2019 | | CARDIOLOGY [address] | [place], SSDS [address] ADVANCED OPERATOR [address] | | | | | [place], | [place], | | | | | [place] [address] | [place] [address] | | | | | [phone] | [phone] | | | | | | | [...] [place] | | | | | | [address] | | | | | | | [...] | | | | | | [place] [address] | | | | | | [phone] | | | | | | | | +--------+ + + + + documented as of this encounter Visit Diagnoses Not on filedocumented in this encounter"
--- OUTSIDE RECORDS SUMMARY | ~2019-02-13 | XMS | Encounter Summary ---
Demographics + + + | Address | [address] | | | [place] [address] | + + + | Home Phone [...] [place] | | | | | [address] | | + + + + + Care Team Providers + +------+ + | Care Application Designer Name | Role | Phone | [...] Monitor | CARDIOLOGY [address] | [address] [place] | Interrogation | | | | [place], | [place], | (Primary Dx); BITUMINOUS PAVING MACHINE OPERATOR-D | | | | [place] [id number] | [place] [id number] | (AICD) [employer] | | | | [phone] | [phone] | 10/16/17 [facility] [place]; | | | | | | [...] [place] | | | | | | [address] | | | | | | | [...] | | | | | | [place] [address] | | | | | | [phone] | | | | | | | [...] | e | 23:59 PDT | Interrogation BITUMINOUS PAVING MACHINE OPERATOR-D | procedure are in the | | REMOTE | | | ([facility]) [employer] | results section. | | [...] + + | Performing | Address | City[facility] | Phone Number | | Organization | | | | + +---------+ + + | [facility] | | | | + +---------+ + + documented in this encounter Visit Diagnoses + + | Diagnosis | + + | Remote Device Interrogation - Primary Fitting and adjustment of automatic implantable | | cardiac defibrillator | + + | BITUMINOUS PAVING MACHINE OPERATOR-D (ZANED) [employer] 10/16/17 EULOGIO Darby | + + | Ischemic cardiomyopathy Other specified forms of chronic ischemic heart disease | + + documented in this encounter"
--- OUTSIDE RECORDS SUMMARY | ~2019-02-13 | XMS | Encounter Summary ---
Demographics + + + | Address | [address] | | | [place] [address] | + + + | Home Phone [...] | | | | | [place] [address] | | + + + + + Care Team Providers + +------+ + | Care Forward Air Controller/Air Officer Name | Role | Phone | + +------+ + | Chato Matson MD | PCP | | + +------+ + Encounter Details +--------+ + + + + | Date | Type | Department | Care Team | Description | +--------+ + + + + | 10/11/ | Procedure | Diagnostic Imaging | | | | 2018 | Pass | Services at [facility] | | | | | | [address] | | | | | | [facility] | | | | | | Mailcode: [id number] | | | | | | [employer] | | | | | | [place], [place] | | | | | | [address] | | | | | | [phone] | | | +--------+ + + + [...]
--- OUTSIDE RECORDS SUMMARY | ~2019-02-13 | XMS | Encounter Summary ---
Demographics + + + | Address | [address] | | | [place] [address] | + + + | Home Phone [...] | | | | | [place] [address] | | + + + + + Care Team Providers + +------+ + | Care Inspector Fabric Name | Role | Phone | + +------+ + | Jamal Guerrero MD | PCP | | + +------+ + Encounter Details +--------+ + + + + | Date | Type | Department | Care Team | Description | +--------+ + + + + | 01/28/ | Document-Sc | UNKNOWN DEPARTMENT | Unknown . | | | 2011 | anned | [address] [facility] | | | | | | [facility] | | | | | | [place], [place] | | | | | | [address] | | | +--------+ + + + [...]
--- OUTSIDE RECORDS SUMMARY | ~2019-02-13 | XMS | Encounter Summary ---
Demographics + + + | Address | [address] | | | [place] [address] | + + + | Home Phone | | + + + | Preferred Language | Unknown | + + + | Marital Status | | + + + | Congregation Affiliation | Unknown | + + + | Race | Unknown | + + + | Ethnic Group | Unknown | + + + Author + + + | Author | [facility] | | | and [place] | + + + | Organization | [facility] | | | and [place] | + + + | Address | Unknown | + + + | Phone | Unavailable | + + + Support + + + + + | Name | Relationship | Address | Phone | + + + + + | [place] Will | ECON | [place] | | | | | [address] | | + + + + + Care Team Providers + +------+ + | Care Superintendent Custodian Janitor Name | Role | Phone | + +------+ + | Young Haque DO | PCP | | + +------+ + Encounter Details +--------+ + + + + | Date | Type | Department | Care Team | Description | +--------+ + + + + | 03/19/ | Abstract | [facility] | Jenny, | | | 2018 | | CARDIOLOGY [address] | [place] INVENTORY ASSISTANT [address] | | | | | [place], | [place], | | | | | [place] [address] | [place] [address] | | | | | [phone] | | | | | | | [...] | | | [address] , [facility] | | | | | | [address] [place] | | | | | | [address] | | | | | | | | +--------+ + + + + | 03/24/ | Procedure | Cardiology | | | | 2018 | visit | | | | +--------+ + + + + | 03/24/ | Office | Cardiology | Jenny, | | | 2018 | Visit | | ADARSH Santo [address] | | | | | | [place], | | | | | | [place] [address] | | | | | | [phone] | | | | | | | [...]
--- OUTSIDE RECORDS SUMMARY | ~2019-02-13 | XMS | Encounter Summary ---
Demographics + + + | Address | [address] | | | [place] [address] | + + + | Home Phone [...] | | | | | [place] [address] | | + + + + + Care Team Providers + +------+ + | Care Office Clerk Name | Role | Phone | [...] | | | | | involving | [place], [place] | | | | | | left main | [address] | | | | | | coronary | Phone: | | | | | | artery (HCC) | [phone] | | | | | | Procedures | Fax: | | | | | | | [phone] | | | | | | OCCUPATIONAL [...] | | | | elevation | [address] [facility] | | | | | | myocardial | [address] | | | | | | infarction | Rd | | | | | | involving | [place], [place] | | | | | | left main | [address] | | | | | | coronary | Phone: | | | | | | artery (HCC) | [phone] | | | | | | Procedures | Fax: | | | | | | PHYSICAL | [phone] | | | | | | THERAPY [...] RE[facility]AB - [facility] | [address]THONY [address] | [address] | | | | | | [address] | [place], | | | | | | [place], [place] | [place] [address] | | | | | | [address] | Phone: | | | | | | Phone: | [phone] | | | | | | [phone] | Fax: | | | | | | Fax: | [phone] | | | | | | [phone] | | +--------+--------+ + + + + [...] | | | | | Ave | [place], | | | | | | [place], [place] | [place] [address] | | | | | | [address] | Phone: | | | | | | Phone: | [phone] | | | | | | [phone] | Fax: | | | | | | Fax: | [phone] | | | | | | [phone] | | +--------+--------+ + + + + [...] | | | 04/02/ | | HOSPITAL [place], | [place], [place] | | | 2016 | | [place] [address] | [address] | | | | | [phone] | [phone] | | | | | | | | | | | | Rolly Reeves, | | | | | | [address] | | | | | | [address] [place], [place] | | | | | | [address] | | | | | | [phone] | | | | | | | | | | | | Terry Ochoa MD | | | | | | [address] | | | | | | [place], [place] | | | | | | [address] | | | | | | [phone] | | | | | | | | | | | | Monika Cooper, | | | | | | Rehana Downey MD,MPH [address] | | | | | [address] | | | | | | [address] [place], [place] | | | | | | [address] | | | | | | [phone] | | | | | | | | | | | | Ariana Bose, | | | | | | DO [address] | | | | | | [address] | | | | | | [place], [place] | | | | | | [address] | | | | | | [phone] | | | | | | | | | | | | Aria Rojas MD | | | | | | [address] | | | | | | Tabitha [place]a [place], | | | | | | [place] [address] | | | | | | [phone] | | | | | | | [...] 2:26 PM PDT CLINICAL HOSPITALIST DISCHARGE SUMMARY [facility] Discharging Provider: Aria Rojas MD [...] follow up ludmila miller with a local hog trader in [place]. #Acute cardiogenic shock in the setting ofSTEMI [...] (noted on o utside records). Patient on [place] 10/325 q8 as outpatient. Was receiving scheduled [...] then take 7.5 mg (one and one-h fpc tablets) daily starting 04/03/2017 Indications: JAVON thrombus, [...] Fax Number [facility] Yes [address] [place] [address] Medina Roger RN 04/02/2017 11:31 Medina Roger RN, 04/02/2017 11:28 AM: Spoke with Latricia, 7 day auth # [id number] has been provided. Contacted Tanisha at facility [phone], arranging anticipated medicaid transport by stretcher at 2 pm today. Spoke with patient and souse concerning dc; they are both in agreement. Medina Roger, RN, 04/02/2017 9:20 AM: Contacted Latriciabettina Landry [phone] referencing auth# for SNF placement. Medina Roger RN, 04/01/2017 11:42 AM: Spoke with Malathi [phone], at facility admissions. Patient is accepted to facility. 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 F&MS working with patient and family to add Medicaid ser vices to benefits. When added patient will have travel benefit. CM contacted Shahab Holman re [place] [employer] training. Tamia Van, RN, 03/30/2017 1:21 PM: Received VM from Emily Terrell CM with [facility] to send referral to this location . Referral made, awaiting response. Follow Up: Schedule the following appointment(s) when you get home Follow up with [facility] . Specialties: Nursing Home Facility, Intermediate Care Facility Contact information [address] [place] [phone] Follow up with LAUREN CHESTER MD. Go on 04/07/2017. Specialty: Cardiology Why: at 8:30 AM to establish Cardiology follow up Contact information [facility] [address] [address] Aria Rojas MD Division of Hospital Medicine [facility] I spent 60 [...] will need Life Vest follow up with hog trader in [place] on discharge - appr eciate cardiology assistance [...] hematoma, but possibly some candidal infection/intertrigo. On [place] 10/325 Q8H as an outp atient. -Continue [...] Aria Rojas MD Division of Hospital Medicine [facility] Pager [phone] I spent 36 minutes on the patient [...] will need Life Vest follow up with hog trader in [place] on discharge - appr iate cardiology assistance [...] hematoma, but possibly some candidal infection/interrigo. On [place] 10/ Q8H as an outpa tient. -Continue [...] discharge. -CM looking for skilled placement in [place] near patient's home; appreciate assistance At risk [...] Aria Rojas MD Division of Hospital Medicine [facility] Pager [phone] I spent 36 minutes on the patient encounter today, >50% in counseling of the patient's on the above plan of care and in coordination of care on the arizmendi with nursing and Heart [facility] il[facility]. Ariana Ivy DO - 03/30/2017 5:49 PM PDT CLINICAL HOSPITALIST SERVICE PROGRESS NOTE PATIENT'S NAME/MRN: Ron Mckeon/[id number] HOSPITAL DAY: #15 24-HOUR EVENTS & SUBJECTIVE: -patient complained of typical anginal chest pain and had STEMI code last night, anterior S T elevation on serial EKGs, given 325mg ASA, started on heparin drip (had been turned off fo r JAVON thrombus yesterday afternoon with warfarin therapeutic), patient went to the clinical laboratory medical director -on angiography, interventionalists noted "patent stent [...] 7.5 mg, 7.5 mg, oral, QPM, Ariana My[place], OBJECTIVE: Last Vitals: BP 101/56 | Pulse [...] daily - Patient will follow up with hog trader in [place] on discharge; appreciate cardiolo adriana assistance with [...] stenosis (noted on o utside records, on [place] q8 as outpatient) Improved today -continue oxycodone [...] assistance Barriers for DC: delivery/approval of lifevest, [facility] bed Ariana Bose DO Cylinder Machine Operator Pulp Drierhead scorer Clinical Hospitalist and Medicine Teaching Service Division of Hospital Medicine [facility] Pager [phone] [facility] DEPARTMENT: Hosp- [id number] Place of Service: Date of Service: 03/26/2017 CSN: [id number] Modifiers:GC Resident Involved: Yes Suggested CPT: 01008 Subsequent Visit Detailed/High complexity 35 min Cristi [...] given continued elevated Tn, patient's significant recent UT, we activated the clinical laboratory medical director. Patient received 325 mg ASA at bedside and was briefly on heparin which has since been disc ontinued. Per cardiology will continue daily 81 mg ASA, plavix and warfarin. Continue to t rend troponins as well. I spent 30 minutes with this patient with >50% of the time evaluating patient at the [facility] on numerous occasions, evaluating studies and coordinating care w/ cardiology.Electronical ly signed by Ivette Chaudhry MD at 03/30/2017 6:24 AM Gerson Oseguera MD - 03/30/2017 4:31 AM PDTCardiology Preliminary Procedure Note (Full report to follow) Primary Care Provider: Jamal Guerrero MD Referring Provider: No Referring Provider Per Patient Electromatic Typist Staff: Katarina Ngo M.D. Procedure(s): Coronary Angiography [...] None Complications: None Hemostasis: Manual compression in clinical laboratory medical director. Site: [facility] Recommendations: Patient Status: Inpatient Usual post cath care. Ariana Ivy D O - 03/29/2017 9:30 AM PDT CLINICAL HOSPITALIST SERVICE PROGRESS NOTE PATIENT'S NAME/MRN: Ron Mckeon/[id number] HOSPITAL DAY: #14 24-HOUR EVENTS & SUBJECTIVE: [...] stenosis (noted on o utside records, on [place] 10 q8 as outpatient) -continue oxycodone 10mg [...] arm, midline left arm Ariana Bose DO Cylinder Machine Operator Pulp Drierhead scorer Clinical Hospitalist and Medicine Teaching Service Division of Hospital Medicine [facility] Pager [phone] [facility] DE[facility]: Hosp- [id number] Place of Service: - Date of Service: 03/26/2017 CSN: [id number] Modifiers:GC Resident Involved: Yes Suggested CPT: 46551 Subsequent Visit Detailed/High complexity 35 min Ariana Ivy DO - 03/28/2017 8: 06 AM PDT CLINICAL HOSPITALIST SERVICE PROGRESS NOTE PATIENT'S NAME/MRN: Ron Mckeon/[id number] HOSPITAL DAY: #13 24-HOUR EVENTS & SUBJECTIVE: [...] stenosis (noted on o utside records, on [place] q8 as outpatient) Improving L groin pain [...] arm, midline left arm Ariana Bose DO Cylinder Machine Operator Pulp Drierhead scorer Clinical Hospitalist and Medicine Teaching Service Division of Hospital Medicine [facility] Pager [phone] [facility] DEPARTMENT: Hosp- [id number] Place of Service: - Date of Service: 03/26/2017 CSN: [id number] Modifiers:GC Resident Involved: Yes Suggested CPT: 21063 Subsequent Visit Detailed/High complexity 35 min Ariana [...] 1,000 Units, 1,000 Units, oral, DAILY, Amol Alavrado MD, 1,000 Units at 03/26/17 0930 clopidogrel [...] arm, midline left arm Ariana Bose DO Cylinder Machine Operator Pulp Drierhead scorer Clinical Hospitalist and Medicine Teaching Service Division of Hospital Medicine [facility] Pager [phone] [facility] DE[facility]MENT: Hosp- [id number] Place of Service: - Date of Service: 03/26/2017 CSN: [id number] Modifiers:GC Resident Involved: Yes Suggested CPT: 37633 Subsequent Visit Detailed/High complexity 35 min Chapis [...] arm, midline left arm Ariana Bose DO Cylinder Machine Operator Pulp Drierhead scorer Clinical Hospitalist and Medicine Teaching Service Division of [facility] Medicine [facility] Pager [phone] [facility] DEPARTMENT: Hosp- [id number] Place of Service: - Date of Service: 03/26/2017 CSN: [id number] Modifiers:GC Resident Involved: Yes Suggested CPT: 91649 Subsequent Visit Detailed/High complexity 35 min Wan Cano MD - 03/25/2017 3:07 PM PDT . Cardiovascular Intensive Care Unit Attending Progress Note CVICU D2 Assigned #[id number] ICU Admission Reason Most Recent Value ICU [...] artery. ANY X2 placed in outs surinder clinical laboratory medical director along with IABP. Arrived in cardiogenic [...] Pager Mellisa Haji MD Admitting Provider Cardiology 03578 Zelalem Del Toro MD ICU PM Attending Anesthesiology 92313 Code Status Code Status Full Code The Advanced Care Note for this patient can be found under the notes tab in chart review. Quality section Reardon necessity reviewed: Hourly/Accurate measurement of urinary output for clinical manage ment of critically ill patients Wan Deleon MD, JOHN, ERVIN Cardiovascular Intensive Care Unit [address] [place], [place] [address] I have spent a total of 38 [...] ICU CARDIAC Place of Service:- Inpatient CSN: [id number] Suggested Modifier: GC - Resident Involved Suggested CPT: TO TUBE AND MANIFOLD BUILDER Jose Ramon Khan MD - 03/24/2017 10:54 AM PDT . Cardiovascular Intensive Care Unit Team Progress Note CVICU D2 Assigned #[id number] ICU Admission Reason Most Recent Value ICU [...] artery. ANY X2 placed in outs surinder clinical laboratory medical director along with IABP. Arrived in cardiogenic [...] & Plan Patient went into VFib [facility] Was shocked 17 times Targeted temperature [...] edema. Patient was difficult intubation at outside clinical laboratory medical director. -secretions improving, cough strong -s/p 7 [...] Pager Mellisa Haji MD Admitting Provider Cardiology 42728 Zelalem Del Toro MD ICU PM Attending Anesthesiology 22328 The Advanced Care Note for this patient [...] Ramon Alvarado MD Author:Jose Ramon Alvarado MD [address] [place] [address] [place] [id number] signed by Jose Ramon Alvarado MD at 03/24/2017 11:00 AM Wan Cano MD - 03/24/2017 9:47 AM PDTFormatting of this note might be diff erent from the original. Cardiovascular Intensive Care Unit Attending Progress Note CVICU D2 Assigned #[id number] ICU Admission Reason Most Recent Value ICU [...] artery. ANY X2 placed in outs surinder clinical laboratory medical director along with IABP. Arrived in cardiogenic [...] Pager Mellisa Haji MD Admitting Provider Cardiology 42599 Zelalem Del Toro MD ICU PM Attending Anesthesiology 43488 Code Status Code Status Full Code The Advanced Care Note for this patient can be found under the notes tab in chart review. Quality section Reardon necessity reviewed: Hourly/Accurate measurement of urinary output for clinical manage ment of critically ill patients Wan Deleon MD, JOHN, ERVIN Cardiovascular Intensive Care Unit [address] [place] [place] [address] I have spent a total of 42 [...] of Service: 03/24/2017 [facility]MENT: [facility] ICU CARDIAC Place of Service:- Inpatient CSN: [id number] Suggested Modifier: GC - Resident Involved Suggested CPT: TO TUBE AND MANIFOLD BUILDER Author:Wan Deleon Md, [address] [id number] signed by Wan Deleon MD at 03/24/2017 9:49 AM Tamia De La Paz PA-C - 03/23/2017 11:54 PM PDTFormatting of this note might be diff erent from the original. Cardiovascular Intensive Care Unit Clinical Update Note Team: D2 Team Pager: [phone] Attending: Katey Pt Name: Ron Mckeon ID: Abbreviated HPI Abbreviated HPI / Daily Assessment Ron Mckeon is a 61 year old man with acute cardiogenic shock in the setting of acu te STEMI from thrombosed left main coronary artery. Initially had lesion in proximal LAD and distal LM, but then acutely thrombosed his left main coronary artery. ANY X2 placed in outs surinder clinical laboratory medical director along with IABP. Arrived in cardiogenic [...] Unit Team Progress Note CVICU D2 Assigned #[id number] ICU Admission Reason Most Recent Value ICU [...] artery. ANY X2 placed in outs surinder clinical laboratory medical director along with IABP. Arrived in cardiogenic [...] dc'd 03/23 STEMI (ST elevation myocardial infarction) ([facility]) Yes Overview Xience Alpine 3.0 mm X 23 mm, Xience Alpine 2.5 mm X 18 mm Current Assessment & Plan Initially had lesion in proximal LAD and distal LM, but then acutely thrombosed/dissected his left main coronary artery. S/p NAY X2. Plavix loaded at the outside hospital and transp orted on ticagrelor and bivalirudin. Troponin peaked at 576 on 03/15. - DAPT: ASA 81 mg daily + Plavix 75 mg daily -will dc ASA today (WOEST trial, Lancet 2013) to reduce bleeding risk -continue plavix, warfarin Coronary artery disease Yes Ventricular fibrillation (HCC) No Current Assessment & Plan Patient went into VFib during [facility] Was shocked 17 times Targeted temperature [...] edema. Patient was difficult intubation at outside clinical laboratory medical director. -fevering nightly, cultures negative, WBC stable [...] Pager Mellisa Haji MD Admitting Provider Cardiology 51576 The Advanced Care Note for this patient [...] Alvarado MD Author:Jose Ramon Alvarado MD [address] [id number] signed by Jose Ramon Alvarado MD at 03/23/2017 11:41 AM PDTWan Deleon MD - 03/23/2017 9:51 AM PDTFormatting of this note might be diff erent from the original. Cardiovascular Intensive Care Unit Attending Progress Note CVICU D2 Assigned #[id number] ICU Admission Reason Most Recent Value ICU [...] artery. ANY X2 placed in outs surinder clinical laboratory medical director along with IABP. Arrived in cardiogenic [...] Pager Mellisa Haij MD Admitting Provider Cardiology 63445 Code Status Code Status Full Code The Advanced Care Note for this patient can be found under the notes tab in chart review. Quality section A-Line necessity reviewed: Plan to DC today Reardon necessity reviewed: Hourly/Accurate measurement of urinary output for clinical manage ment of critically ill patients Currently at risk for: delirium, stroke, UT, arrythmia, tamponade, PE, respiratory failure, ARDS, aspiration, AYLIN / ARF, coagulopathy, DVT, stress ulcers, sepsis, BONIFACIO, electrolyte per turbations, malnutrition, deconditioning and decubiti. Wan Deleon MD, JOHN, ERVIN Cardiovascular Intensive Care Unit [facility] [place] [address] I have spent a total of 44 [...] of Service: 03/23/2017 [facility] DEPARTMENT: [facility] ICU CARDIAC Place of Service:- Inpatient CSN: [id number] Suggested Modifier: GC - Resident Involved Suggested CPT: TO TUBE AND MANIFOLD BUILDER Tamia De La Paz PA-C - 03/22/2017 7:58 PM PDT . Cardiovascular Intensive Care Unit Clinical Update Note Team: D2 Team Pager: [phone] Attending: Abdulaziz Merrill Name: Ron Mckeon ID: [...] Unit Attending Progress Note CVICU D2 Assigned #[id number] ICU Admission Reason Most Recent Value ICU [...] long tobacco abuse history, presenting with acute UT and STEMI, resu ltant cardiogenic shock refractory [...] Pager Mellisa Haji MD Admitting Provider Cardiology 07217 Code Status Code Status Full Code Quality section A-Line necessity reviewed: Rhzh-wo-vktg blood pressure monitoring Reardon necessity reviewed: Hourly/Accurate [...] of Service: 03/22/2017 Author:Anurag Ashby MD [address] [id number] signed by Anurag Ashby MD at 03/22/2017 11:07 AM P Macho Sellers MD - 03/22/2017 11:00 AM PDT Cardiovascular Intensive Care Unit Team Progress Note CVICU D2 Assigned #[id number] ICU Admission Reason Most Recent Value ICU [...] & Plan Patient went into VFib during clinical [facility] Was shocked 17 times Targeted temperature [...] edema. Patient was difficult intubation at outside clinical laboratory medical director. -vanc zosyn stopped 03/17 -fever 38.3 [...] Pager Mellisa Haji MD Admitting Provider Cardiology 25999 This patient does not have an Advanced Care Note for this Admission. Please use the Goal of care section of your ICU navigator to document the advanced care discussion. Quality section A-Line necessity reviewed: Cuvj-ar-gyzr blood pressure monitoring Reardon necessity reviewed: Hourly/Accurate measurement of urinary output for clinical manage ment of critically ill patients FAST HUG Feeding: Tube Feeds: Replete @ 55 mL/hr Analgesia: APAP, hydromorphone PRN Sedation: N/A Thromboprophylaxis: Heparin infusion Head of Bed: Head of Bed >30 degrees Ulcer Prophylaxis: Famotidine Glycemic Control: insulin infusion Created by Macho Gaytan MD Author:Macho Gaytan MD [address] [id number] signed by Macho Gaytan MD at 03/23/2017 12:35 PM PDTT Tamia leon PA-C - 03/21/2017 7:02 PM PDTFormatting of this note might be different f rom the original. Cardiovascular Intensive Care Unit Clinical Update Note Team: D2 Team Pager: [phone] Attending: Abdulaziz Merrill Name: Ron Mckeon ID: [...] Opens eyes, nods head. Follows commands for county health officer and Plan: Hospital Problems Priority POA Head/Neck [...] Unit Team Progress Note CVICU D2 Assigned #[id number] ICU Admission Reason Most Recent Value ICU [...] & Plan Patient went into VFib during clinical [facility] Was shocked 17 times Targeted temperature [...] edema. Patient was difficult intubation at outside clinical laboratory medical director. -vanc zosyn stopped 03/17 -fever 38.3 [...] Pager Mellisa Haji MD Admitting Provider Cardiology 42469 This patient does not have an Advanced Care Note for this Admission. Please use the Goal of care section of your ICU navigator to document the advanced care discussion. Quality section A-Line necessity reviewed: Iyew-wf-edew blood pressure monitoring CVC necessity reviewed: Hemodynamic [...] Macho Gaytan MD Author:Macho Gaytan MD [address] [id number] signed by Macho Gaytan MD at 03/21/2017 1:43 PM Anurag Paredes MD - 03/21/2017 12:22 PM PDT Cardiovascular Intensive Care Unit Attending Progress Note CVICU D2 Assigned #[id number] ICU Admission Reason Most Recent Value ICU [...] long tobacco abuse history, presenting with acute UT and STEMI, resu ltant cardiogenic shock refractory [...] Pager Mellisa Haji MD Admitting Provider Cardiology 65227 Code Status Code Status Full Code Quality section A-Line necessity reviewed: Mrqf-ux-cjst blood pressure monitoring CVC necessity reviewed: Plan [...] Date of Service: 03/21/2017 Author:Anurag Ashby MD [address] [address] [place] [address]Xsuthdfzbblrof signed by Anurag Ashby MD at 03/21/2017 12:22 PM P Jose Ramon Coburn MD - 03/20/2017 12:36 PM PDTFormatting of this note might be differen t from the original. Cardiovascular Intensive Care Unit Team Progress Note CVICU D2 Assigned #[id number] ICU Admission Reason Most Recent Value ICU [...] & Plan Patient went into VFib during clinical [facility] Was shocked 17 times Targeted temperature [...] edema. Patient was difficult intubation at outside clinical laboratory medical director. -vanc zosyn stopped 03/17 -fever 38.3 [...] Pager Mellisa Haji MD Admitting Provider Cardiology 89071 Quality section A-Line necessity reviewed: Bmvd-mw-etvz blood pressure monitoring CVC necessity reviewed: Hemodynamic [...] Alvarado MD Author:Jose Ramon Alvarado MD [address] [id number] signed by Jose Ramon Alvarado MD at 03/20/2017 12:49 PM PDTMoulton, Anurag Soni MD - 03/20/2017 12:18 PM PDTFormatting of this note might be differen t from the original. Cardiovascular Intensive Care Unit Attending Progress Note CVICU D2 Assigned #[id number] ICU Admission Reason Most Recent Value ICU [...] long tobacco abuse history, presenting with acute UT and STEMI, resu ltant cardiogenic shock refractory [...] Pager Mellisa Haji MD Admitting Provider Cardiology 35280 Code Status Code Status Full Code Quality section A-Line necessity reviewed: Jhlj-bi-lysy blood pressure monitoring CVC necessity reviewed: Medication [...] Date of Service: 03/20/2017 Author:Anurag Ashby MD [address] [address] [place] [id number] signed by Anurag Ashby MD at 03/20/2017 12:18 PM P Raul Conte MD - 03/19/2017 11:01 PM PDTFormatting of this note might be different fro m the original. Cardiovascular Intensive Care Unit Attending Progress Note CVICU D2 Assigned #[id number] ICU Admission Reason Most Recent Value ICU [...] long tobacco abuse history, presenting with acute UT and STEMI, resu ltant cardiogenic shock refractory [...] Pager Mellisa Haji MD Admitting Provider Cardiology 10458 Code Status Code Status Full Code Quality section A-Line necessity reviewed: Olgx-qe-ojvv blood pressure monitoring CVC necessity reviewed: Hemodynamic [...] Date of Service: 03/19/2017 Author:Raul Wei MD [place] [address] Jose Ramon Rodriguez MD - 03/19/2017 4:49 PM PDT Cardiovascular Intensive Care Unit Team Progress Note CVICU D2 Assigned #[id number] ICU Admission Reason Most Recent Value ICU [...] & Plan Patient went into VFib during clinical [facility] Was shocked 17 times Targeted temperature [...] edema. Patient was difficult intubation at outside clinical laboratory medical director. -vanc zosyn stopped 03/17 -fever 38.3 [...] Pager Mellisa Haji MD Admitting Provider Cardiology 52729 Quality section A-Line necessity reviewed: Jalu-sc-wqbw blood pressure monitoring CVC necessity reviewed: Hemodynamic monitoring Reardon necessity reviewed: Hourly/Accurate measurement of urinary output for clinical manage ment of critically ill patients FAST HUG Feeding: TFs Analgesia: multimodal Sedation: propofol Thromboprophylaxis: Heparin infusion Head of Bed: Head of Bed >30 degrees Ulcer Prophylaxis: protonix Glycemic Control: insulin infusion Created by Jose Ramon Alvarado MD Author:Jose Ramon Alvarado MD [address] [address]Ufitowjpqrnumn signed by Jose Ramon Alvarado MD at 03/19/2017 4:54 PM Lee Fernandez MD - 03/19/2017 2:22 PM PDTFormatting of this note might be different fr om the original. . Extracorporeal Life Support Service Daily Progress Note Pager #[phone] Type: Veno-Arterial (CPT 59964 or 178[address]) Date of insertion: 03/15/2017 Diagnosis:Cardiogenic shock Dressing [...] Unit Attending Progress Note CVICU D2 Assigned #[id number] ICU Admission Reason Most Recent Value ICU [...] long tobacco abuse history, presenting with acute UT and STEMI, resu ltant cardiogenic shock refractory [...] Pager Mellisa Haji MD Admitting Provider Cardiology 41256 Code Status Code Status Full Code Quality section A-Line necessity reviewed: Cvha-vp-ivqq blood pressure monitoring CVC necessity reviewed: Medication [...] of Service: 03/19/2017 Author:Anurag Ashby MD [address] [address]Vsyahogukkoqup signed by Anurag Ashby MD at 03/19/2017 2:17 PM P Jose Ramon Coburn MD - 03/18/2017 12:56 PM PDTFormatting of this note might be differen t from the original. Cardiovascular Intensive Care Unit Team Progress Note CVICU D2 Assigned #[id number] ICU Admission Reason Most Recent Value ICU [...] (obdulio) pm STEMI (ST elevation myocardial infarction) ([facility]) Yes Overview Xience Alpine 3.0 mm X [...] & Plan Patient went into VFib during [facility] Was shocked 17 times Targeted temperature [...] edema. Patient was difficult intubation at outside clinical laboratory medical director. -vanc zosyn stopped today Abnormal CK [...] Pager Mellisa Haji MD Admitting Provider Cardiology 98262 Quality section A-Line necessity reviewed: Thac-vo-fbhw blood pressure monitoring CVC necessity reviewed: Hemodynamic monitoring Reardon necessity reviewed: Hourly/Accurate measurement of urinary output for clinical manage ment of critically ill patients FAST HUG Feeding: trickle feeds Analgesia: multimodal Sedation: propofol Thromboprophylaxis: Heparin infusion Head of Bed: Head of Bed >30 degrees Ulcer Prophylaxis: nexium Glycemic Control: insulin infusion Created by Jose Ramon Alvarado MD Author:Jose Ramon Alvarado MD [address] [address]Fhqqhcrmlmmvfj signed by Jose Ramon Alvarado MD at 03/18/2017 1:27 PM PDTMoulton, Anurag Soni MD - 03/18/2017 11:56 AM PDTFormatting of this note might be differen t from the original. Cardiovascular Intensive Care Unit Attending Progress Note CVICU D2 Assigned #[id number] ICU Admission Reason Most Recent Value ICU [...] long tobacco abuse history, presenting with acute UT and STEMI, resu ltant cardiogenic shock refractory [...] Pager Mellisa Haji MD Admitting Provider Cardiology 70266 Code Status Code Status Full Code Quality section A-Line necessity reviewed: Qcpd-wi-pnwj blood pressure monitoring CVC necessity reviewed: Medication [...] of Service: 03/18/2017 Author:Anurag Ashby MD [address] [address]Lngavnnvkothym signed by Anurag Ashby MD at 03/18/2017 11:59 AM Lee Prince MD - 03/18/2017 11:37 AM PDTFormatting of this note might be different from nissa suh original. . Extracorporeal Life Support Service Daily Progress Note Pager #[phone] Type: Veno-Arterial (CPT 24875 or 12347) Diagnosis:Cardiogenic shock Dressing changed: no Dressing Changed [...] Life Support Service Daily Progress Note Pager #[phone] Type: Veno-Arterial (CPT 78449 or [address]3754) Date of insertion: 03/15/2017 Diagnosis:Cardiogenic shock Dressing [...] Unit Attending Progress Note CVICU D2 Assigned #[id number] ICU Admission Reason Most Recent Value ICU [...] long tobacco abuse history, presenting with acute UT and STEMI, resu ltant cardiogenic shock refractory [...] Pager Mellisa Haji MD Admitting Provider Cardiology 48910 Quality section A-Line necessity reviewed: Tiid-yj-wawc blood pressure monitoring CVC necessity reviewed: Rapid [...] Date of Service: 03/17/2017 Author:Raul Wei MD [address] [address] [place] [address]Xcppypdsgzxbma signed by Raul Wei MD at 03/17/2017 9:20 PM PD Anurag Kaba MD - 03/17/2017 1:58 PM PDTFormatting of this note might be different fro m the original. Cardiovascular Intensive Care Unit Attending Progress Note CVICU D2 Assigned #[id number] ICU Admission Reason Most Recent Value ICU [...] long tobacco abuse history, presenting with acute UT and STEMI, resu ltant cardiogenic shock refractory [...] Pager Mellisa Haji MD Admitting Provider Cardiology 01025 Quality section A-Line necessity reviewed: Yjxf-fu-dpvo blood pressure monitoring CVC necessity reviewed: Medication [...] of Service: 03/17/2017 Author:Anurag Ashby MD [address] [address]Kgvgivkjhwbscm signed by Anurag Ashby MD at 03/17/2017 2:00 PM P Mauri Calderon - 03/17/2017 1:01 PM PDTTransthoracic echocardiogram completed. Final r eport to follow. Teddy Ibrahim DO, MS - 03/17/2017 10:00 AM PDT Cardiovascular Intensive Care Unit Team Progress Note CVICU D2 Assigned #[id number] ICU Admission Reason Most Recent Value ICU Admission reason Cardiogenic Shock filed at 03/15/2017 1531 Admission dx: left anterior descending artery occlusion, needs cabg 2 Days in ICU 2 Days in Hospital Abbreviated HPI / Daily Assessment Rno Mckeon is a 61 year old man [...] & Plan Patient went into VFib during [facility] Was shocked 17 times Targeted temperature [...] edema. Patient was difficult intubation at outside clinical laboratory medical director. -vanc zosyn stopped today Abnormal CK [...] Pager Mellisa Haji MD Admitting Provider Cardiology 38165 This patient does not have an Advanced Care Note for this Admission. Please use the Goal of care section of your ICU navigator to document the advanced care discussion. Quality section A-Line necessity reviewed: Kzmw-uw-mfox blood pressure monitoring CVC necessity reviewed: Hemodynamic monitoring Reardon necessity reviewed: Hourly/Accurate measurement of urinary output for clinical manage ment of critically ill patients FAST HUG Feeding: Tube Feeds Analgesia: apap, oxy, hm Sedation: propofol Thromboprophylaxis: Heparin infusion Head of Bed: Head of Bed Flat Ulcer Prophylaxis: Pantoprazole Glycemic Control: insulin infusion Created by Teddy Kee Do, MS [facility]: [facility] ICU CARDIAC Place of Service:- Inpatient CSN: [id number] Suggested Modifier: GC - Resident Involved Suggested CPT: TO TUBE AND MANIFOLD BUILDER Author:Teddy Kee Do, MS [address] [address]Dmhjfqhyuaxett signed by Teddy Kee DO, MS at 03/17/2017 6:35 PM Raul Hanson MD - 03/16/2017 7:38 PM PDT Cardiovascular Intensive Care Unit Attending Progress Note CVICU D2 Assigned #[id number] ICU Admission Reason Most Recent Value ICU [...] long tobacco abuse history, presenting with acute UT and STEMI, resu ltant cardiogenic shock refractory [...] Pager Mellisa Haji MD Admitting Provider Cardiology 18219 Quality section A-Line necessity reviewed: Unku-ss-xelp blood pressure monitoring CVC necessity reviewed: Rapid [...] of Service: 03/16/2017 Author:Raul Wei MD [address] [address]Znuppxxeigkujl signed by Raul Wei MD at 03/17/2017 11:03 AM PD Jose Ramon Rodriguez MD - 03/16/2017 5:15 PM PDT Cardiovascular Intensive Care Unit Team Progress Note CVICU D2 Assigned #[id number] ICU Admission Reason Most Recent Value ICU [...] & Plan Patient went into VFib during [facility] Was shocked 17 times Now on [...] edema. Patient was difficult intubation at outside clinical laboratory medical director. -bridget retana for now Physical Exam [...] Pager Mellisa Haji MD Admitting Provider Cardiology 71026 Quality section A-Line necessity reviewed: Zsky-av-wsfj blood pressure monitoring CVC necessity reviewed: Hemodynamic [...] Ramon Alvarado MD Author:Jose Ramon Alvarado MD [address] [address] [place] [address]Xfpfxhuwzmpxmq signed by Jose Ramon Alvarado MD at [...] Unit Attending Progress Note CVICU D2 Assigned #[id number] ICU Admission Reason Most Recent Value ICU [...] ICU Day #2 after being transferred from [place] in [place] in acute cardiogenic archie ck following an [...] Pager Mellisa Haji MD Admitting Provider Cardiology 87585 Quality section A-Line necessity reviewed: Mjdd-qs-dgbv blood pressure monitoring CVC necessity reviewed: Hemodynamic [...] of Service: 03/16/2017 Author:Anurag Ashby MD [address] [address]Mwbfoamhcsgaoi signed by Anurag Ashby MD at 03/16/2017 1:23 PM Lee Prince MD - 03/16/2017 9:41 AM PDTFormatting of this note might be different from t vikash original. . Extracorporeal Life Support Service Daily Progress Note Pager #[phone] Type: Veno-Arterial (CPT 37285 [place] [address]) Diagnosis:Cardiogenic shock Dressing changed: no Dressing Changed [...] Clinical Update Note Team: D2 Team Pager: [phone] Attending: Abdulaziz Merrill Name: Ron Mckeon ID: [...] ICU CARDIAC Place of Service:- Inpatient CSN: [id number] Suggested Modifier: None Suggested CPT: TO TUBE AND MANIFOLD BUILDER Mirna Berumen PA-C Everardo Valladares MD - 03/15/2017 9:04 PM PDT Cardiovascular Intensive Care Unit Attending Progress Note CVICU D2 Assigned #[id number] ICU Admission Reason Most Recent Value ICU Admission reason Cardiogenic Shock filed at 03/15/2017 1531 Hospital admission dx: left anterior descending artery occlusion, needs cabg Days in ICU Days in Hospital Medical Decision Making ICU Day #1 after being transferred from [place] in [place] in acute cardiogenic archie ck following an [...] Pager Mellisa Haji MD Admitting Provider Cardiology 38978 Quality section A-Line necessity reviewed: Sxcv-ck-dqvv blood pressure monitoring CVC necessity reviewed: Hemodynamic [...] and the recent imaging available. Seen with PA/CREDIT COLLECTIONS ANALYST Winston Cole. Please see their note for details. I reviewed the documented findings, all data and the recent imaging available. Date of Service: 03/15/2017 Author:Everardo Citnron MD [address] [address]Lgvmoctsqezywp signed by Everardo Cintron MD at 03/15/2017 9:[address] - 03/15/2017 2:11 PM PDTTransthoracic echocardiogram completed. Final r eport to follow. oniPatrick genao MD,MPH - 03/15/2017 2:00 PM PDT . Extracorporeal Life Support Service Consult Service Note Pager #[phone] Date: 03/15/17 Author: Patrick Ruiz MD,MPH Consulting Attending: Mellisa Haji MD Reason for Consult: [place] ECMO Consideration HPI: 61 year old male who presents this afternoon to [facility] in acute cardiogenic shock second maciej to STEMI / thrombosed L main coronary artery. He was transferred from [place]. His symptoms started this morning around 3am and was seen in [place], [place]. He was diagnosed w ith an anterior STEMI and transferred to the clinical laboratory medical director in [place], [place]. He was found to h ave [...] (epinephrine and dopamine). On arrival to [facility], he was in profound cardiogenic shock and hypoxic. His MAP was in the 40s. He was tach ycardic into the 150s. IABP was increased to 1:2. Past Medical History: Past Medical History: Diagnosis Date Cardiogenic shock ([facility]) 03/15/2017 Coronary artery disease 03/15/2017 Hypercholesterolemia Hypertension STEMI (ST elevation myocardial infarction) ([facility]) 03/15/2017 Tobacco use Past Surgical History: Past [...] from cardiogenic shock. Patrick Ruiz MD, MPH stamp collector Trauma, Critical Care & Acute Care Surgery [facility] onies, Patrick Sexton MD,MPH - 03/15/2017 1:48 PM PDT . . Extracorporeal Life Support Service Initiation Note Pager #[phone] Date of service: 03/15/2017 Author: Patrick Ruiz Md,Mph ECMO Type: Veno-Arterial ([place] 29489 [place] [address]) Oxygenation index FiO2: 100 MAP: 22 Diagnosis:Cardiogenic [...] | + +--------+ + + + | ER-XX-UCB-HB,POC RT | Routin | 03/19/2017 | ST [...] | + +--------+ + + + | WI ECMO REV | Routin | 03/19/2017 | [...] +---+--------+ + +--------+ + + + | AV-XI-SBR-HB,POC RT | Routin | 03/19/2017 | ST [...] | + +--------+ + + + | YU-GD-TSL-HB,POC RT | Routin | 03/19/2017 | ST elevation | Results for this | | | e | 10:06 AM | myocardial | procedure are in the | | | | PDT | infarction involving | results section. | | | | | left main coronary | | | | | | artery (HCC) | | + +--------+ + + + | DI-VX-VRE-HB,POC RT | Routin | 03/19/2017 | ST [...] | + +--------+ + + + | PV-QY-XWH-HB,POC RT | Routin | 03/17/2017 | ST [...] | + +--------+ + + + | BL-QQ-LET-HB,POC RT | Routin | 03/16/2017 | ST [...] | + +--------+ + + + | EY-OZ-WRJ-HB,POC RT | Routin | 03/16/2017 | ST [...] | + +--------+ + + + | UN-RQ-YWT-HB,POC RT | Routin | 03/15/2017 | ST [...] | + +--------+ + + + | PG-PL-YYL-HB,POC RT | Routin | 03/15/2017 | ST [...] | + +--------+ + + + | BH-DL-YKS-HB,POC RT | Routin | 03/15/2017 | ST [...] Height: 175 cm Weight: 89 kgBSA: 2.05 [id number] PHYSICIAN:Katarina Ngo | | .FELLOW:Gerson Mejias M.D. [...] right coronary angiography.COMPLICATIONS:None.TECHNIQUE:Right femoral artery | | 6-Cuban 10 cm Hollywood sheath, 6-Cuban XB 3.5 guide catheter, 5-Cuban JR4 | | catheter.DESCRIPTION OF PROCEDURE:Informed consent [...] modified Seldinger technique and a | | 5-Cuban micropuncture system, a 6-Cuban 10 cm Hollywood sheath was placed in the right | | femoral artery. A 6-Cuban XB 3.5 guide catheter was inserted into the ascending aorta | | over a guidewire. The guidewire was removed. The catheter was aspirated and flushed. | | The left coronary system was selectively engaged and imaged in multiple projections. A | | 5-Cuban Kymberly right 4 catheter was advanced to [...] DOSE AREA | | PRODUCT: 3749 cGy [id number]:Aortic pressure 87/15, mean aortic pressure 63, heart [...] 03/30/2017 04:50:01DT: | | 03/30/2017 08:34:34Job #: [id number] | |extending from it into the LAD. [...] |YDT/MODL | | | | | | /[id number] | + + CAPILLARY BLOOD GLUCOSE (NO [...] [facility] | [address] | [place], [place] | | | JULIANN SILVA OF CARE | [address] | [address] | | | TESTS | | | [...] + + + + + | [facility] | [address] | [place] [address] | | | SERVICES, CORE | PARK [...] + + + + + | [facility] | [address] | [place] [address] | | | SERVICES, CORE | PARK [...] [facility] | [address] | [place] [address] | | | SERVICES, CORE | PARK [...] | | | LABORATORY | | | GUAMANIAN | | | SERVICES, | | | [...] + + + + + | [facility] | [address] | [place] [address] | | | ARASH, ИРИНА | PARK [...] ranges for full anticoagulation: INR for | ARSU | | Venous Thromboembolism (2.0 - 3.0) [...] [facility] | [address] [facility] | [place] [address] | | | ИРИНА ANTOINE | TABITHA [...] + + + + + | [facility] | [address] | [place] [address] | | | ARASH, ИРИНА | TABITHA [...] [facility] | [address] | [place], [place] | | | JULIANN SILVA OF ALEX[facility] | [address] | [address] | | | TESTS | | | [...] [facility] | [address] | [place], [place] | | | RICARDO POINT OF CARE | [address] | [address] | | | TESTS | | | [...] + + + | [facility] | [address] | [place], [place] | | | RICARDO POINT OF [facility] | [address] | [address] | | | TESTS | | | [...] + + + + + | [facility] | [address] [facility] | [place] [address] | | | SERVICES, CORE | TABITHA [...] | | | LABORATORY | | | GUAMANIAN | | | SERVICES, | | | [...] [facility] | [address] | [place] [address] | | | SERVICES, CORE | PARK [...] [facility] | [address] | [place] [address] | | | SERVICES, CORE | PARK [...] + + + + + | [facility] | [address] | [place] [address] | | | SERVICES, CORE | TABITHA [...] [facility] | [address] | [place], [place] | | | [facility]O POINT OF CARE | [address] | [address] | | | TESTS | | | [...] [facility] | [address] | [place], [place] | | | RICARDO POINT OF CARE | [address] | [address] | | | TESTS | | | [...] [facility] | [address] | [place], [place] | | | JULIANN SILVA [facility] [place] | [address] | [address] | | | TESTS | | | [...] [facility] | [address] | [place], [place] | | | JULIANN SILVA OF CARE | [address] | [address] | | | TESTS | | | [...] [facility] | [address] | [place] [address] | | | SERVICES, CORE | PARK [...] | | | LABORATORY | | | GUAMANIAN | | | SERVICES, | | | [...] + + | [facility] | [address] | [place] [address] | | | SERVICES, ИРИНА | TABITHA [...] [facility] | [address] [facility] | [place] [address] | | | ARASH, ИРИНА | TABITHA [...] [facility] | [address] | [place] [address] | | | SERVICES, CORE | TABITHA [...] + + + + + | [facility] | [address] [facility] [facility] | [place] [address] | | | ARASH, ИРИНА | TABITHA [...] [facility] | [address] | [place], [place] | | | RICARDO POINT OF CARE | [address] | [address] | | | TESTS | | | [...] | | | LABORATORY | | | GUAMANIAN | | | SERVICES, | | | [...] | + + + + + | [facility] | [address] | [place] [address] | | | SERVICES, CORE | TABITHA [...] DEPT OF | [address] | [place], [place] | | | CARDIOLOGY | [address] | [address] | | + + + + + [...] [facility] | [address] | [place], [place] | | | RICARDO SURPRISE OF [facility] | [address] | [address] | | | TESTS | | | [...] | | | LABORATORY | | | GUAMANIAN | | | SERVICES, | | | [...] HOSPITAL LAB[facility]ATORY | [address] | [place] [address] | | | SERVICES, CORE | PARK [...] + + + + + | [facility] | [address] | [place] [address] | | | SERVICES, CORE | PARK [...] rmed At | + +------ + | [facility] | [facility] DE[facility] | | [facility] Adult Echocardiography | CARDI OLOGY | | Laboratory [address] [place] [address] | | | [place] [address] Pt Name: | | | RON Chaudhary MIKE Study Date/Time 03/30/2017 / 10:44:00 | | | AMMRN: [id number] Most recent | | | prior: 03/19/17 #: [id number] No. previous | | | echos: 3DOB: 1955 61 years Heart | | | Rate: 70 bpmHeight: 68.0 in | | | Blood Pressure: 100/55 mm/HgWeight: 197.0 | | | lb Gender: | | | MBSA: 2.03 m2 Order | | | ID: [id number] Dairy Specialist: Shahab Sutton | | | RDCSSonographer 2: Karly Gayle Referring Provider: Ariana | | | [facility] Location: 11KModalities Performed: 2D, Color [...] Tn, | | | patient's significant recent UT, we activated the clinical laboratory medical director. Patient | | | history has [...] Report electronically signed by: | | | [id number] Jordon Neville MD (03/30/2017, 2:04:56 PM) Final | | | | | |Wall Scoring: | | | | | | | | |Report electronically signed by: [id number] Jordon Neville MD (03/30/2017, 2:04:56 PM) | | | | | | | | | | | | Final | | + +------ + + + | Procedure Note | + + | Interface, Cardiology Results - 03/30/2017 2:04 PM [facility] | | [facility] Echocardiography Laboratory [address] [place] [address] | | Center [place], [place] [address] Pt Name: RON Chaudhary | | MIKE Study Date/Time 03/30/2017 / 10:44:00 AMMRN: [id number] Most | | recent prior: 03/19/17 #: [id number] No. previous echos: 3DOB: | | 1955 61 years Heart Rate: 70 bpmHeight: 68.0 in Blood | | Pressure: 100/55 mm/HgWeight: 197.0 lb Gender: MBSA: | | 2.03 m2 Order ID: [id number] Dairy Specialist: Shahab Sutton | | RDCSSonographer 2: Karly Major Provider: [facility] Location: | | 11KModalities Performed: 2D, Color [...] elevated Tn, | | patient's significant recent UT, we activated the clinical laboratory medical director. Patient history has been | | [...] Scoring: Report | | electronically signed by: [id number] Jordon Neville MD (03/30/2017, 2:04:56 PM) Final [...] | | | |Report electronically signed by: [id number] Jordon Neville MD (03/30/2017, 2:04:56 PM) | | | | | | | | Final | + + + + + + + | Performing | Address | City/State/Zipcode | Phone Number | | Organization | | | | + + + + + | [facility] | [address] | [place], [place] | | | CARDIOLOGY | [address] | [address] | | + + + + + [...] [facility] | [address] | [place], [place] | | | JULIANN SILVA OF CARE | [address] | [address] | | | TESTS | | | [...] HOSPITAL LAB[facility]ORY | [address] | [place] [address] | | | SERVICES, CORE | TABITHA [...] [facility] | [address] | [place], [place] | | | RIC[facility]O [facility] | [address] | [address] | | | TESTS | | | [...] | [facility] | [address] [facility] | [place], [place] | | | CARDIOLOGY | [address] | [address] | | + + + + + [...] | | | LABORATORY | | | GUAMANIAN | | | SERVICES, | | | [...] [facility] | [address] | [place] [address] | | | SERVICES, CORE | PARK [...] HOSPITAL LABORATORY | [address] | [place] [address] | | | SERVICES, CORE | PARK [...] + + + + + | [facility] | [address] | [place] [address] | | | SERVICES, CORE | TABITHA [...] OF | [address] | [place], [place] | | | CARDIOLOGY | [address] | [address] | | + + + + + [...] + + | [facility] | [address] | [place], [place] | | | CARDIOLOGY | [address] | [address] | | + + + + + [...] HOSPITAL LABORATORY | [address] | [place] [address] | | | SERVICES, CORE | TABITHA [...] [facility] | [address] [facility] [facility] | [place] [address] | | | SERVICES, ИРИНА | TABITHA [...] [facility] | [address] | [place] [address] | | | SERVICES, CORE | TABITHA [...] + + + + + | [facility] | [address] | [place] [address] | | | SERVICES, ИРИНА | TABITHA [...] [facility] | [address] | [place], [place] | | | JULIANN SILVA [facility] | [address] | [address] | | | TESTS | | | [...] [facility] | [address] | [place] [address] | | | SERVICES, CORE | PARK [...] DEPT OF | [address] | [place], [place] | | | CARDIOLOGY | [facility] | [address] | | + + + + + [...] [facility] | [address] | [place], [place] | | | RICARDO POINT OF CARE | [address] | [address] | | | TESTS | | | [...] [facility] | [address] | [place], [place] | | | JULIANN SILVA OF A[place] | [facility] | [address] | | | TESTS | | | [...] + + + + + | [facility] | [address] | [place] [address] | | | ИРИНА ANTOINE | TABITHA [...] [facility] | [address] | [place], [place] | | | JULIANN SILVA OF [facility] | [address] | [address] | | | TESTS | | | [...] [facility] | [address] | [place] [address] | | | SERVICES, CORE | PARK [...] | | | LABORATORY | | | GUAMANIAN | | | SERVICES, | | | [...] HOSPITAL LABORATORY | [address] | [place] [address] | | | SERVICES, CORE [...] (H) | 0.90 - 1.20 INR | ARSU [...] [facility] | [address] | [place] [address] | | | ИРИНА ANTOINE | TABITHA [...] [facility] | [address] | [place] [address] | | | SERVICES, CORE | PARK [...] + + + + + | [facility] | [address] | [place] [address] | | | SERVICES, CORE | TABITHA [...] + + + + + | [facility] | [address] [facility] | [place] [address] | | | SERVICES, CORE | TABITHA [...] [facility] | [address] | [place], [place] | | | JULIANN SILVA OF CARE | [address] | [address] | | | TESTS | | | [...] - [facility] | [address] | [place], [place] | | | RICARDO POINT OF CARE | [address] | [address] | | | TESTS | | | [...] | | | LABORATORY | | | GUAMANIAN | | | SERVICES, | | | [...] [facility] | [address] | [place] [address] | | | ARASH, ИРИНА | PARK [...] [facility] | [address] | [place] [address] | | | SERVICES, CORE | PARK [...] | | | LABORATORY | | | GUAMANIAN | | | SERVICES, | | | [...] HOSPITAL LAB[facility]ORY | [address] | [place] [address] | | | ARASH, ИРИНА | TABITHA [...] 93 | 70 - 99 mg/dL | [facility] [...] [facility] | [address] | [place], [place] | | | JULIANN SILVA OF CARE | [facility] | [address] | | | TESTS | | | [...] MARIA | [address] | [place], [place] | | | JULIANN SILVA OF ALEXIS | [address] | [address] | | | TESTS | | | [...] [facility] | [address] | [place] [address] | | | ИРИНА ANTOINE | TABITHA [...] | | | LABORATORY | | | GUAMANIAN | | | SERVICES, | | | [...] + + | [facility] | [address] | [place] [address] | | | SERVICES, CORE | TABITHA [...] + + | [facility] | [address] | [place] [address] | | | SERVICES, ИРИНА | TABITHA [...] ranges for full anticoagulation: INR for | ARSU | | Venous Thromboembolism (2.0 - 3.0) [...] [facility] | [address] | [place] [address] | | | SERVICES, ИРИНА | TABITHA [...] [facility] | [address] | [place] [address] | | | ARASH, ИРИНА | PARK [...] EULOGIO R[facility] | [address] | [place], [place] | | | JULIANN SILVA OF [facility] | [address] | [address] | | | TESTS | | | [...] RODGERS | [address] | [place], [place] | | | RICARDO POINT OF CARE | [address] | [address] | | | TESTS | | | [...] MARQUAM | [address] | [place], [place] | | | RICARDO POINT OF CARE | [address] | [address] | | | TESTS | | | [...] (H) | 70 - 99 mg/dL | ARMENDY - | | | GLUCOSE, | | [...] MARQUAM | [address] | [place], [place] | | | JULIANN SILVA OF ALEXIS | [address] | [address] | | | TESTS | | | [...] + | [facility] | [address] | [place] [address] | | | SERVICES, CORE | TABITHA [...] + + + + + | [facility] | [address] [facility] | [place] [address] | | | SERVICES, CORE | TABITHA [...] | | | LABORATORY | | | GUAMANIAN | | | SERVICES, | | | [...] + | [facility] | [address] [facility] | [place] [address] | | | SERVICES, CORE | PARK [...] | + + + + + | [facility] | [address] [facility] | [place] [address] | | | SERVICES, CORE | TABITHA [...] HOSPITAL LABORATORY | [address] | [place] [address] | | | ИРИНА ANTOINE | TABITHA [...] RODGERS | [address] | [place], [place] | | | JULIANN SILVA OF [place]LEX[place] | [address] | [address] | | | TESTS | | | [...] MARQUAM | [address] | [place], [place] | | | R[facility]ARDO POINT OF CARE | [address] | [address] | | | TESTS | | | [...] | | | LABORATORY | | | GUAMANIAN | | | SERVICES, | | | [...] + + + + + | [facility] | [address] | [place] [address] | | | SERVICES, ИРИНА | TABITHA [...] MARIA | [address] | [place], [place] | | | JULIANN SILVA OF ALEXIS | [address] | [address] | | | TESTS | | | [...] EULOGIO CALABRESE | [address] | [place] [address] | | | ARASH, ИРИНА | TABITHA [...] HOSPITAL LAB[facility] | [address] | [place] [address] | | | ИРИНА ANTOINE | TABITHA [...] [facility] | [address] | [place] [address] | | | SERVICES, CORE | PARK [...] | | | LABORATORY | | | GUAMANIAN | | | SERVICES, | | | [...] + + | [facility] | [address] [facility] | [place] [address] | | | SERVICES, CORE | PARK [...] HOSPITAL LABORATORY | [address] | [place] [address] | | | ИРИНА ANTOINE | TABITHA [...] HOSPITAL LAB[facility] | [address] | [place] [address] | | | SERVICES, CORE | PARK [...] | [facility] | | considered for monitoring mcfp glycemic control in patients with: | LABORATORY [...] + + | [facility] | [address] | [place] [address] | | | SERVICES, SPECIAL | TABITHA [...] [facility] | [address] | [place] [address] | | | SERVICES, CORE | PARK [...] - MARQU[facility] | [address] | [place], [place] | | | R[facility]O POINT OF CARE | [address] | [address] | | | TESTS | | | [...] + + + | [facility] | [address] | [place], [place] | | | JULIANN SILVA OF [facility] | [address] | [address] | | | TESTS | | | [...] [facility] | [address] | [place] [address] | | | ARASH, ИРИНА | TABITHA [...] | [facility] | | | GRAVITY | Mason performed by | | LABORATORY | | [...] [facility] | [address] | [place] [address] | | | ARASH, CORE | TABITHA [...] | + + + + + | [place] [facility] - | [address] | [place] [address] | | | [place] | | | | + + + [...] RODGERS | [address] | [place], [place] | | | R[facility]ARDO POINT OF CARE | [address] | [address] | | | TESTS | | | [...] MARIA | [address] | [place], [place] | | | JULIANN SILVA OF ALEXIS | [facility] | [address] | | | TESTS | | | [...] + + + + + | [facility] | [address] | [place] [address] | | | ARASH, ИРИНА | TABITHA [...] [facility] | [address] | [place] [address] | | | SERVICES, CORE | TABITHA [...] HOSPITAL LAB[facility] | [address] | [place] [address] | | | SERVICES, CORE | TABITHA [...] LABORATORY | | | | | | ARSAH, | | | | | | CORE | | + +---------+ + + + + + | Specimen | + + | Blood | + + + + + + + | Performing | Address | City/State/Zipcode | Phone Number | | Organization | | | | + + + + + | [facility] | [address] | [place] [address] | | | SERVICES, CORE | PARK [...] | | | LABORATORY | | | GUAMANIAN | | | SERVICES, | | | [...] [facility] | [address] | [place] [address] | | | ARASH, ИРИНА | TABITHA [...] + + | [facility] | [address] | [place] [address] | | | ИРИНА ANTOINE | TABITHA [...] MARIA | [address] | [place], [place] | | | JULIANN SILVA OF CARE | [facility] | [address] | | | TESTS | | | [...] RODGERS | [address] | [place], [place] | | | R[facility]ARDO POINT OF CARE | [address] | [address] | | | TESTS | | | [...] RODGERS | [address] | [place], [place] | | | JULIANN SILVA OF [place] | [address] | [address] | | | TESTS | | | [...] MARIA | [address] | [place], [place] | | | JULIANN SILVA OF [facility] | [address] | [address] | | | TESTS | | | [...] + | [facility] | [address] [facility] | [place] [address] | | | SERVICES, CORE | PARK [...] [facility] | [address] | [place] [address] | | | SERVICES, CORE | PARK [...] | MIGUELMENDY Enriquez [facility] MARIA | [address] [facility] | [place], [place] | | | RICARDO [facility] | [address] | [address] | | | TESTS | | | [...] | | | attempt. Midline lot number [id number]; there was + blood | | | [...] MARQUAM | [address] | [place], [place] | | | JULIANN SILVA OF CARE | [address] | [address] | | | TESTS | | | [...] MARIA | [address] | [place], [place] | | | [facility] POINT OF CARE | [address] | [address] | | | TESTS | | | [...] HOSPITAL LAB[facility]ORY | [address] | [place] [address] | | | SERVICES, CORE | TABITHA [...] RODGERS | [address] | [place], [place] | | | JULIANN SILVA OF ALEXIS | [address] | [address] | | | TESTS | | | [...] MARIA | [address] | [place], [place] | | | JULIANN SILVA OF ALEXIS | [facility] | [address] | | | TESTS | | | [...] MARQUAM | [address] | [place], [place] | | | JULIANN SILVA OF CARE | [address] | [address] | | | TESTS | | | [...] RODGERS | [address] | [place], [place] | | | GURINDER SIVLA | [facility] | [address] | | | TESTS | | | [...] [facility] | [address] | [place] [address] | | | ИРИНА ANTOINE | TABITHA [...] + | [facility] | [address] [facility] | [place] [address] | | | ИРИНА ANTOINE | TABITHA [...] [facility] | [address] | [place] [address] | | | SERVICES, CORE | PARK [...] | | | LABORATORY | | | GUAMANIAN | | | SERVICES, | | | [...] + + | Performing | Address | City/State[facility] | Phone Number | | Organization | | | | + + + + + | [facility] | [address] | [place] [address] | | | ИРИНА ANTOINE | PARK [...] HOSPITAL LAB[facility]ORY | [address] | [place] [address] | | | ИРИНА ANTOINE | TABITHA [...] MARIA | [address] | [place], [place] | | | JULIANN SILVA OF [place] | [address] | [address] | | | TESTS | | | [...] RODGERS | [address] | [place], [place] | | | JULIANN SILVA OF ALEXIS | [facility] | [address] | | | TESTS | | | [...] - MARQUAM | [address] | [place], [place] | | | JULIANN SILVA OF CARE | [facility] | [address] | | | TESTS | | | [...] MARIA | [address] | [place], [place] | | | JULIANN SILVA OF CARE | [address] | [address] | | | TESTS | | | [...] [facility] | [address] | [place] [address] | | | ARASH, CORE | PARK [...] - MARQU[facility] | [address] | [place], [place] | | | R[facility]ARDO POINT OF CARE | [address] | [address] | | | TESTS | | | [...] + + + | E[facility] | [address] | [place], [place] | | | JULIANN SILVA OF [facility] | [address] | [address] | | | TESTS | | | [...] + + + + + | [facility] | [address] [facility] | [place] [address] | | | SERVICES, CORE | TABITHA [...] MARQUAM | [address] | [place], [place] | | | R[facility]O POINT OF CARE | [address] | [address] | | | TESTS | | | [...] MARQUAM | [address] | [place], [place] | | | R[facility]ARDO POINT OF CARE | [address] | [address] | | | TESTS | | | [...] RODGERS | [address] | [place], [place] | | | JULIANN SILVA OF CARE | [address] | [address] | | | TESTS | | | [...] MARQUAM | [address] | [place], [place] | | | RICARDO POINT OF CARE | [address] | [address] | | | TESTS | | | [...] | [facility] | [address] [facility] [address] | [place], [place] | | | R[facility]ARDO POINT OF CARE | [address] | [address] | | | TESTS | | | [...] + | [facility] | [address] [facility] | [place] [address] | | | SERVICES, CORE | PARK [...] HOSPITAL LABORATORY | [address] | [place] [address] | | | SERVICES, CORE | TABITHA [...] HOSPITAL [facility] | [address] | [place] [address] | | | SERVICES, CORE | TABITHA [...] | | | LABORATORY | | | GUAMANIAN | | | SERVICES, | | | [...] [facility] | [address] | [place] [address] | | | SERVICES, CORE | TABITHA [...] + + + + + | [facility] | [address] | [place] [address] | | | SERVICES, ИРИНА | TABITHA [...] MARQU[facility] | [address] | [place], [place] | | | RICARDO POINT OF CARE | [facility] | [address] | | | TESTS | | | [...] - MARQU[facility] | [address] | [place], [place] | | | R[facility]ARDO POINT OF CARE | [address] | [address] | | | TESTS | | | [...] + + + | [facility] | [address] | [place], [place] | | | R[facility]ARDO POINT OF CARE | [address] | [address] | | | TESTS | | | [...] MARQUAM | [address] | [place], [place] | | | JULIANN SILVA OF CARE | [address] | [address] | | | TESTS | | | [...] - MARQU[facility] | [address] | [place], [place] | | | RICARDO POINT OF CARE | [address] | [address] | | | TESTS | | | [...] RODGERS | [address] | [place], [place] | | | RICARDO POINT OF CARE | [address] | [address] | | | TESTS | | | [...] + + + + + | [facility] | [address] | [place] [address] | | | ИРИНА ANTOINE | TABITHA [...] RODGERS | [address] | [place], [place] | | | R[facility]ARDO POINT OF CARE | [address] | [address] | | | TESTS | | | [...] RODGERS | [address] | [place], [place] | | | JULIANN SILVA OF ALEIXS | [address] | [address] | | | TESTS | | | [...] MARIA | [address] | [place], [place] | | | JULIANN SILVA OF CARE | [facility] | [address] | | | TESTS | | | [...] RODGERS | [address] | [place], [place] | | | R[facility]ARDO POINT OF CARE | [address] | [address] | | | TESTS | | | [...] MARIA | [address] | [place], [place] | | | JULIANN SILVA OF [place] | [address] | [address] | | | TESTS | | | [...] HOSPITAL LAB[facility] | [address] | [place] [address] | | | SERVICES, CORE | TABITHA [...] RODGERS | [address] | [place], [place] | | | JULIANN SILVA OF CARE | [address] | [address] | | | TESTS | | | [...] MARQUAM | [address] | [place] | | | RICARDO POINT OF CARE | [address] | [address] | | | TESTS | | | [...] MARQUAM | [address] | [place], [place] | | | JULIANN SILVA OF ALEXIS | [facility] | [address] | | | TESTS | | | [...] | E[facility]OGIO [facility] | [address] | [place], [place] | | | JULIANN SILVA OF ALEX[place] | [address] | [address] | | | TESTS | | | [...] MARQUAM | [address] | [place], [place] | | | RICARDO POINT OF CARE | [address] | [address] | | | TESTS | | | [...] MARIA | [address] | [place], [place] | | | RICARDO POINT OF [facility] | [facility] | [address] | | | TESTS | | | [...] + + + + + | [facility] | [address] | [place] [address] | | | SERVICES, | [address] [...] [facility] | [address] | [place] [address] | | | SERVICES, | [address] [...] + + + + | PRODUCT | [id number] | | [facility] | | | UNIT [...] + + + + | EXPIRATION | [id number] | | [facility] | | | DATE [...] + + + + | BLOOD | [id number] | | [facility] | | | PRODUCT [...] [facility] | [address] | [place] [address] | | | SERVICES, | [address] [...] [facility] | [address] | [place] [address] | | | SERVICES, CORE | PARK [...] [facility] | [address] | [place] [address] | | | SERVICES, CORE | TABITHA [...] HOSPITAL [facility] | [address] | [place] [address] | | | SERVICES, CORE | PARK [...] HOSPITAL LAB[facility]ORY | [address] | [place] [address] | | | SERVICES, CORE | PARK [...] + | [facility] | [address] [facility] | [place] [address] | | | SERVICES, CORE | PARK [...] | | | LABORATORY | | | GUAMANIAN | | | SERVICES, | | | [...] LABORATORY | [address] | [place] [address] | | | ARASH, ИРИНА | TABITHA [...] MARQU[facility] | [address] | [place], [place] | | | JULIANN SILVA OF ALEXIS | [facility] | [address] | | | TESTS | | | [...] RODGERS | [address] | [place], [place] | | | RICARDO POINT OF CARE | [address] | [address] | | | TESTS | | | [...] MARQUAM | [address] | [place], [place] | | | JULIANN SILVA OF CARE | [facility] | [address] | | | TESTS | | | [...] MARQUAM | [address] | [place], [place] | | | JULAINN SILVA OF ALEXIS | [facility] | [address] | | | TESTS | | | [...] RODGERS | [address] | [place], [place] | | | RICARDO POINT OF CARE | [address] | [address] | | | TESTS | | | [...] MARQUAM | [address] | [place], [place] | | | JULIANN SILVA OF CARE | [facility] | [address] | | | TESTS | | | [...] MARQUAM | [address] | [place], [place] | | | JULIANN SILVA OF [place] | [address] | [address] | | | TESTS | | | [...] RODGERS | [address] | [place], [place] | | | RICARDO POINT OF CARE | [address] | [address] | | | TESTS | | | [...] MARRANDIAM | [address] | [place], [place] | | | RICARDO [facility] | [address] | [address] | | | TESTS | | | [...] | | | LABORATORY | | | GUAMANIAN | | | SERVICES, | | | [...] + + | [facility] | [address] | [place] [address] | | | SERVICES, ИРИНА | TABITHA [...] MARIA | [address] | [place], [place] | | | JULIANN SILVA OF ALEXIS | [facility] | [address] | | | TESTS | | | [...] RODGERS | [address] | [place], [place] | | | RICARDO POINT OF CARE | [address] | [address] | | | TESTS | | | [...] MARIA | [address] | [place], [place] | | | JULIANN SILVA OF A[place] | [address] | [address] | | | TESTS | | | [...] on the 1 attempt. Midline lot number [id number]; there was + | | | blood [...] RODGERS | [address] | [place], [place] | | | JULIANN SILVA OF CARE | [facility] | [address] | | | TESTS | | | [...] MARIA | [address] | [place], [place] | | | JULIANN SILVA OF CARE | [address] | [address] | | | TESTS | | | [...] [facility] | [address] | [place] [address] | | | SERVICES, CORE | PARK [...] MARIA | [address] | [place], [place] | | | JULIANN SILVA OF ALEX[place] | [address] | [address] | | | TESTS | | | [...] [facility] | [address] [facility] [facility] | [place] [address] | | | ИРИНА ANTOINE | TABITHA [...] MAR[facility] | [address] | [place], [place] | | | HILL, POINT OF CARE | [address] | [address] | | | TESTS | | | [...] MARQUAM | [address] | [place], [place] | | | JULIANN SILVA OF ALEXIS | [facility] | [address] | | | TESTS | | | [...] RODGERS | [address] | [place], [place] | | | RICARDO POINT OF CARE | [address] | [address] | | | TESTS | | | [...] MARQUAM | [address] | [place], [place] | | | HILL, POINT OF CARE | [address] | [address] | | | TESTS | | | [...] [facility] | [address] | [place] [address] | | | SERVICES, CORE | PARK [...] [facility] | [address] | [place] [address] | | | ARASH, ИРИНА | PARK [...] + + + + + | [facility] | [address] | [place] [address] | | | SERVICES, CORE | TABITHA [...] | | | LABORATORY | | | GUAMANIAN | | | SERVICES, | | | [...] HOSPITAL [facility] | [address] | [place] [address] | | | SERVICES, CORE | TABITHA [...] RODGERS | [address] | [place], [place] | | | RICARDO POINT OF CARE | [address] | [address] | | | TESTS | | | [...] MARQU[facility] | [address] | [place], [place] | | | RICARDO POINT OF CARE | [address] | [address] | | | TESTS | | | [...] RODGERS | [address] | [place], [place] | | | RICARDO POINT OF CARE | [address] | [address] | | | TESTS | | | [...] RODGERS | [address] | [place], [place] | | | JULIANN SILVA OF ALEXIS | [address] | [address] | | | TESTS | | | [...] [facility] | [address] | [place], [place] | | | JULIANN SILVA OF [facility] | [address] | [address] | | | TESTS | | | [...] + + + + + | [facility] | [address] | [place] [address] | | | SERVICES, CORE | TABITHA [...] MARQU[facility] | [address] | [place], [place] | | | JULIANN SILVA OF CARE | [address] | [address] | | | TESTS | | | [...] [facility] | [address] | [place], [place] | | | JULIANN SILVA OF CARE | [address] | [address] | | | TESTS | | | [...] RODGERS | [address] | [place], [place] | | | JULIANN SILVA OF CARE | [address] | [address] | | | TESTS | | | [...] MARQU[facility] | [address] | [place], [place] | | | JULIANN SILVA OF CARE | [address] | [address] | | | TESTS | | | [...] [facility] | [address] | [place], [place] | | | JULIANN SILVA OF CARE | [address] | [address] | | | TESTS | | | [...] RODGERS | [address] | [place], [place] | | | JULIANN SILVA OF CARE | [address] | [address] | | | TESTS | | | [...] [facility] | [address] | [place], [place] | | | JULIANN SILVA OF CARE | [address] | [address] | | | TESTS | | | [...] HOS[facility]ITAL [facility] | [address] | [place] [address] | | | SERVICES, CORE | TABITHA [...] RODGERS | [address] | [place], [place] | | | RICARDO POINT OF CARE | [address] | [address] | | | TESTS | | | [...] MARIA | [address] | [place], [place] | | | RICARDO [facility] | [address] | [address] | | | TESTS | | | [...] HOSPITAL [facility] | [address] | [place] [address] | | | SERVICES, CORE | TABITHA [...] RODGERS | [address] | [place], [place] | | | RICARDO POINT OF CARE | [address] | [address] | | | TESTS | | | [...] the tip in the proximal gastric body. [place] [facility] | | | catheter in place. [...] Note | + + | Service Account, Apptentive Res In Interface - 03/20/2017 2:38 PM PDT EXAM: Supine | | frontal view of the abdomen. HISTORY: Study to evaluate feeding tube | | positionCOMPARISON: Chest Xray dated 03/19/2017.FINDINGS AND IMPRESSION:Feeding tube is | | seen in the stomach with the tip in the proximal gastric body.[place] [facility] catheter in | | place.Limited evaluation of the lungs as technique was tailored for feeding tube.I have | | personally reviewed the images and, if necessary, edited the report. I agree with the | | report as now presented. | | | |Feeding tube is seen in the stomach with the tip in the proximal gastric body. | |[place] [facility] catheter in place. | |Limited evaluation [...] [facility] | [address] | [place], [place] | | | JULIANN SILVA OF CARE | [facility] | [address] | | | TESTS | | | [...] MARIA | [address] | [place], [place] | | | JULIANN SILVA OF [place] | [address] | [address] | | | TESTS | | | [...] ANA MARIA | [address] | [place], [place] | | | JULIANN SILVA OF CARE | [facility] | [address] | | | TESTS | | | [...] R[facility] | [address] | [place], [place] | | | JULIANN SILVA OF CARE | [facility] | [address] | | | TESTS | | | [...] MARIA | [address] | [place], [place] | | | JULIANN SILVA OF [place] | [address] | [address] | | | TESTS | | | [...] [facility] | [address] [facility] | [place] [address] | | | SERVICES, CORE | PARK [...] + + + + + | [facility] | [address] | [place] [address] | | | SERVICES, CORE | TABITHA [...] [facility] | [address] | [place] [address] | | | ИРИНА ANTOINE | PARK [...] [facility] | [address] | [place], [place] | | | R[facility]ARDO POINT OF CARE | [address] | [address] | | | TESTS | | | | + + + + + X-RAY PORTABLE CHEST 1 VIEW (03/20/2017 6:33 AM PDT) + + | Specimen | + + | | + + + + + | Narrative | Performed At | + + + | EXAM: WI CHEST 1 VIEW 03/20/17 04:29:28 HISTORY: ECMO [...] Interface - 03/20/2017 10:12 AM PDT EXAM: WI CHEST 1 | | VIEW 03/20/17 04:29:28 [...] - [facility] | [address] | [place], [place] | | | JULIANN SILVA OF CARE | [address] | [address] | | | TESTS | | | [...] [facility] | [address] | [place], [place] | | | JULIANN SILVA OF [place] | [address] | [address] | | | TESTS | | | [...] MARQU[facility] | [address] | [place], [place] | | | JULIANN SILVA OF CARE | [address] | [address] | | | TESTS | | | [...] MARIA | [address] | [place], [place] | | | RICARDO POINT OF [facility] | [address] | [address] | | | TESTS | | | [...] [facility] | [address] | [place] [address] | | | SERVICES, CORE | PARK [...] [facility] | [address] | [place] [address] | | | SERVICES, CORE | TABITHA [...] [facility] | [address] | [place] [address] | | | ARASH, ИРИНА | TABITHA [...] [facility] | [address] | [place] [address] | | | SERVICES, CORE | PARK [...] | | | LABORATORY | | | GUAMANIAN | | | SERVICES, | | | [...] [facility] | [address] [facility] | [place] [address] | | | SERVICES, CORE | TABITHA [...] - [facility] | [address] | [place], [place] | | | JULIANN SILVA OF CARE | [facility] | [address] | | | TESTS | | | [...] [facility] | [address] | [place], [place] | | | JULIANN SILVA OF [place] | [address] | [address] | | | TESTS | | | [...] + + + + + | [facility] | [address] | [place] [address] | | | ARASH CORE | PARK [...] MARQUAM | [address] | [place], [place] | | | JULIANN SILVA OF CARE | [facility] | [address] | | | TESTS | | | [...] MARIA | [address] | [place], [place] | | | JULIANN SILVA OF [facility] | [address] | [address] | | | TESTS | | | [...] + + + + + | [facility] | [address] | [place] [address] | | | SERVICES, CORE | TABITHA [...] [facility] | [address] | [place], [place] | | | RICARDO POINT OF CARE | [address] | [address] | | | TESTS | | | [...] + + + + + | [facility] | [address] | [place] [address] | | | SERVICES, ИРИНА | TABITHA [...] [facility] | [address] | [place], [place] | | | JULIANN SILVA OF CARE | [facility] | [address] | | | TESTS | | | [...] [facility] | [address] | [place] [address] | | | SERVICES, CORE | PARK [...] [facility] | [address] [facility] | [place] [address] | | | SERVICES, CORE | TABITHA [...] + + + | [facility] | [address] | [place], [place] | | | RICARDO POINT OF CARE | [address] | [address] | | | TESTS | | | [...] [facility] | [address] | [place] [address] | | | SERVICES, CORE | TABITHA [...] | + + + + + | [facility] | [address] | [place] [address] | | | SERVICES, CORE | TABITHA [...] + + + + + | [facility] | [address] | [place] [address] | | | SERVICES, CORE | PARK [...] + + + + + | [facility] | [address] | [place] [address] | | | SERVICES, CORE | TABITHA [...] [facility] | [address] | [place], [place] | | | JULIANN SILVA OF CARE | [address] | [address] | | | TESTS | | | [...] MARRANDIAM | [address] | [place], [place] | | | RICARDO POINT OF CARE | [address] | [address] | | | TESTS | | | [...] RODG[facility] | [address] | [place], [place] | | | JULIANN SILVA OF [facility] | [address] | [address] | | | TESTS | | | [...] [facility] | [address] [facility] | [place] [address] | | | SERVICES, CORE | PARK [...] DEPT OF | [address] | [place], [place] | | | CARDIOLOGY | [facility] | [address] | | + + + + + [...] [facility] | [address] | [place], [place] | | | RICARDO POINT OF CARE | [address] | [address] | | | TESTS | | | | + + + + + DY-SH-EYI-HBPOC RT (03/19/2017 1:04 PM PDT) + + [...] [facility] | [address] | [place], [place] | | | RICARDO SURPRISE OF [facility] | [address] | [address] | | | TESTS | | | [...] + + + + | PRODUCT | [id number] | | [facility] | | | UNIT [...] + + + + | EXPIRATION | [id number] | | [facility] | | | DATE [...] + + + + | BLOOD | [id number] | | [facility] | | | PRODUCT [...] LABORATORY | [address] | [place] [address] | | | SERVICES, | [address] [...] + + + + | PRODUCT | [id number] | | [facility] | | | UNIT [...] + + + + | EXPIRATION | [id number] | | [facility] | | | DATE [...] + + + + | BLOOD | [id number] | | [facility] | | | PRODUCT [...] [facility] | [address] | [place] [address] | | | SERVICES, | [address] [...] + + + + | PRODUCT | [id number] | | [facility] | | | UNIT [...] + + + + | EXPIRATION | [id number] | | [facility] | | | DATE [...] + + + + | BLOOD | [id number] | | [facility] | | | PRODUCT [...] + + + + + | [facility] | [address] | [place] [address] | | | SERVICES, | [address] [...] + + + + | PRODUCT | [id number] | | [facility] | | | UNIT [...] + + + + | EXPIRATION | [id number] | | [facility] | | | DATE [...] + + + + | BLOOD | [id number] | | [facility] | | | PRODUCT [...] + + + + + | [facility] | [address] | [place] [address] | | | SERVICES, | [address] [...] [facility] | [address] | [place] [address] | | | SERVICES, ИРИНА | TABITHA [...] | | | LABORATORY | | | GUAMANIAN | | | SERVICES, | | | [...] + + + + + | [facility] | [address] | [place] [address] | | | SERVICES, CORE | TABITHA [...] + + + + + | [facility] | [address] | [place] [address] | | | SERVICES, CORE | TABITHA [...] HOSPITAL LAB[facility]ORY | [address] | [place] [address] | | | SERVICES, CORE | [address] | | | + + + + + WI ECMO REV (EXT)AND/OR DECANNULATION (03/19/2017 12:36 PM [...] Siria | | | GISELL Preston PhD [facility] [address] [id number] [place], | | | [place] [address] | | + + + ABG-FULL ABL, [...] | | | POC | | | RICRADO, POINT | | | | | | [...] MARIA | [address] | [place], [place] | | | JULIANN SILVA OF CARE | [address] | [address] | | | TESTS | | | [...] | | | POC | | | IRCARDO, POINT | | | | | | [...] [facility] | [address] | [place], [place] | | | JULIANN SILVA OF [facility] | [address] | [address] | | | TESTS | | | | + + + + + UE-OR-JGQ-HB,POC RT (03/19/2017 10:24 AM PDT) + + [...] RODGERS | [address] | [place], [place] | | | RICARDO POINT OF CARE | [address] | [address] | | | TESTS | | | [...] MARIA | [address] | [place], [place] | | | JULIANN SILVA OF [place] | [facility] | [address] | | | TESTS | | | | + + + + + SN-IS-ZZF-HB,POC RT (03/19/2017 10:06 AM PDT) + + [...] [facility] | [address] | [place], [place] | | | JULIANN SILVA OF CARE | [address] | [address] | | | TESTS | | | | + + + + + HT-RX-THM-HB,POC RT (03/19/2017 9:51 AM PDT) + + [...] R[facility] | [address] | [place], [place] | | | JULIANN SILVA OF [place] | [address] | [address] | | | TESTS | | | [...] + + + + | PRODUCT | [id number] | | [facility] | | | UNIT [...] + + + + | EXPIRATION | [id number] | | [facility] | | | DATE [...] + + + + | BLOOD | [id number] | | [facility] | | | PRODUCT [...] + + + + + | [facility] | [address] | [place] [address] | | | SERVICES, | [address] [...] + + + + | PRODUCT | [id number] | | [facility] | | | UNIT [...] + + + + | EXPIRATION | [id number] | | [facility] | | | DATE [...] + + + + | BLOOD | [id number] | | [facility] | | | PRODUCT [...] [facility] | [address] | [place] [address] | | | SERVICES, | [address] [...] + + + + | PRODUCT | [id number] | | [facility] | | | UNIT [...] + + + + | EXPIRATION | [id number] | | [facility] | | | DATE [...] + + + + | BLOOD | [id number] | | [facility] | | | PRODUCT [...] [facility] | [address] | [place] [address] | | | SERVICES, | [address] [...] + + + + | PRODUCT | [id number] | | [facility] | | | UNIT [...] + + + + | EXPIRATION | [id number] | | [facility] | | | DATE [...] + + + + | BLOOD | [id number] | | [facility] | | | PRODUCT [...] + | [facility] | [address] [facility] [facility] | [place] [address] | | | SERVICES, | [address] | | | | TRANSFUSION MEDICINE | | | | + + + + + X-RAY PORTABLE CHEST 1 VIEW (03/19/2017 9:13 AM PDT) + + | Specimen | + + | | + + + + + | Narrative | Performed At | + + + | EXAM: WI CHEST 1 VIEW HISTORY: ECMO. Evaluate cannula | [facility] | | placement. COMPARISON: Yesterday FINDINGS: Endotracheal | RADIOLOGY VOICE | | tube, [place] catheter and enteric tube remain in place. [...] Interface - 03/19/2017 9:17 AM PDT EXAM: WI CHEST 1 | | VIEW HISTORY: ECMO. Evaluate cannula placement.COMPARISON: YesterdayFINDINGS: | | Endotracheal tube, [place] catheter and enteric tube remain in place. [...] R[facility] | [address] | [place], [place] | | | JULIANN SILVA OF CARE | [facility] | [address] | | | TESTS | | | [...] [facility] | [address] | [place], [place] | | | JULIANN SILVA OF CARE | [address] | [address] | | | TESTS | | | [...] HOSPITAL [facility] | [address] | [place] [address] | | | ИРИНА ANTOINE | TABITHA [...] [facility] | [address] | [place], [place] | | | RICARDO POINT OF CARE | [address] | [address] | | | TESTS | | | [...] RODGERS | [address] | [place], [place] | | | JULIANN SILVA OF [place] | [facility] | [address] | | | TESTS | | | [...] BLU[facility] | [address] | [place], [place] | | | JULIANN SILVA OF CARE | [facility] | [address] | | | TESTS | | | [...] MARIA | [address] | [place], [place] | | | JULIANN SILVA OF [facility] | [address] | [address] | | | TESTS | | | [...] + + + + + | [facility] | [address] | [place] [address] | | | SERVICES, CORE | TABITHA [...] [facility] | [address] | [place], [place] | | | RICARDO POINT OF CARE | [address] | [address] | | | TESTS | | | [...] MARRANDIAM | [address] | [place], [place] | | | RICARDO POINT OF CARE | [address] | [address] | | | TESTS | | | [...] RODGERS | [address] | [place], [place] | | | JULIANN SILVA OF [place] | [address] | [address] | | | TESTS | | | [...] [facility] | [address] | [place] [address] | | | SERVICES, CORE | PARK [...] R[facility] | [address] | [place], [place] | | | JULIANN SILVA OF [facility] | [facility] | [address] | | | TESTS | | | [...] + + + + + | [facility] | [address] | [place] [address] | | | SERVICES, CORE | TABITHA [...] HOSPITAL LABORATORY | [address] | [place] [address] | | | SERVICES, CORE | TABITHA [...] [facility] | [address] | [place] [address] | | | SERVICES, CORE | PARK [...] [facility] | [address] | [place] [address] | | | SERVICES, CORE | PARK [...] [facility] | [address] | [place] [address] | | | SERVICES, CORE | PARK [...] [facility] | [address] | [place] [address] | | | SERVICES, CORE | PARK [...] | | | LABORATORY | | | GUAMANIAN | | | SERVICES, | | | [...] + + | Performing | Address | City/State[facility] | Phone Number | | Organization | | | | + + + + + | [facility] | [address] [address] | [place] [address] | | | SERVICES, CORE | PARK [...] [facility] | [address] | [place] [address] | | | SERVICES, CORE | PARK [...] + + + + + | [facility] | [address] | [place] [address] | | | SERVICES, CORE | TABITHA [...] [facility] | [address] | [place], [place] | | | RICARDO POINT OF CARE | [address] | [address] | | | TESTS | | | [...] + + | [facility] | [address] [facility] | [place] [address] | | | SERVICES, CORE | PARK [...] [facility] | [address] | [place], [place] | | | JULIANN SILVA OF CARE | [address] | [address] | | | TESTS | | | [...] - BLU[facility] | [address] | [place], [place] | | | RICARDO POINT OF CARE | [address] | [address] | | | TESTS | | | [...] HOSPITAL [facility] | [address] | [place] [address] | | | SERVICES, CORE | TABITHA [...] MARIA | [address] | [place], [place] | | | JULIANN SILVA OF [place] | [facility] | [address] | | | TESTS | | | [...] MARIA | [address] | [place], [place] | | | JULIANN SILVA OF [place] | [facility] | [address] | | | TESTS | | | [...] RODGERS | [address] | [place], [place] | | | JULIANN SILVA OF CARE | [address] | [address] | | | TESTS | | | [...] [facility] | [address] | [place] [address] | | | SERVICES, CORE | PARK [...] + + + + + | [facility] | [address] | [place] [address] | | | SERVICES, CORE | PARK [...] [facility] | [address] | [place] | | | JULIANN SILVA OF CARE | [address] | [address] | | | TESTS | | | [...] [facility] | [address] | [place] [address] | | | ARASH, ИРИНА | TABITHA [...] [facility] | [address] | [place], [place] | | | JULIANN SILVA OF [place] | [facility] | [address] | | | TESTS | | | [...] RODGERS | [address] | [place], [place] | | | RICARDO POINT OF CARE | [address] | [address] | | | TESTS | | | [...] [facility] | [address] | [place] [address] | | | SERVICES, CORE | TABITHA [...] [facility] | [address] | [place] [address] | | | ИРИНА ANTOINE | PARK [...] - [facility] | [address] | [place], [place] | | | RICARDO POINT OF CARE | [address] | [address] | | | TESTS | | | [...] RODGERS | [address] | [place], [place] | | | JULIANN SILVA OF [facility] | [address] | [address] | | | TESTS | | | [...] [facility] | [address] [facility] | [place] [address] | | | SERVICES, CORE | PARK [...] [facility] | [address] | [place] [address] | | | SERVICES, CORE | TABITHA [...] [facility] | [address] | [place] [address] | | | SERVICES, CORE | PARK [...] [facility] | [address] | [place] [address] | | | ИРИНА ANTOINE | TABITHA [...] | | | LABORATORY | | | GUAMANIAN | | | SERVICES, | | | [...] + + + + + | [facility] | [address] | [place] [address] | | | SERVICES, CORE | PARK [...] | [facility] | [address] | [place] [address] | | | SERVICES, CORE | TABITHA [...] [facility] | [address] | [place] [address] | | | ИРИНА ANTOINE | TABITHA [...] HOSPITAL LABORATORY | [address] | [place] [address] | | | SERVICES, CORE | TABITHA [...] + + + | [facility] | [address] | [place], [place] | | | JULIANN SILVA OF [facility] | [address] | [address] | | | TESTS | | | [...] [facility] | [address] | [place], [place] | | | JULIANN SILVA OF [place] | [facility] | [address] | | | TESTS | | | [...] HOSPITAL [facility] | [address] | [place] [address] | | | SERVICES, CORE | TABITHA [...] RODGERS | [address] | [place], [place] | | | RICARDO POINT OF CARE | [address] | [address] | | | TESTS | | | [...] + + + + + | [facility] | [address] | [place] [address] | | | SERVICES, ИРИНА | TABITHA [...] [facility] | [address] | [place] [address] | | | SERVICES, CORE | PARK [...] + | [facility] | [address] | [place] [address] | | | [place] | | | | + + + [...] RODGERS | [address] | [place], [place] | | | JULIANN SILVA OF CARE | [address] | [address] | | | TESTS | | | [...] [facility] | [address] | [place], [place] | | | HILL, POINT OF CARE | [address] | [address] | | | TESTS | | | [...] [facility] | [address] | [place] [address] | | | SERVICES, CORE | PARK [...] HOSPITAL LAB[facility]ORY | [address] | [place] [address] | | | SERVICES, CORE | TABITHA [...] R[facility]GERS | [address] | [place], [place] | | | JULIANN SILVA OF [place] | [address] | [address] | | | TESTS | | | [...] [facility] | [address] | [place], [place] | | | JULIANN SILVA OF CARE | [address] | [address] | | | TESTS | | | | + + + + + X-RAY PORTABLE CHEST 1 VIEW (03/18/2017 6:05 AM PDT) + + | Specimen | + + | | + + + + + | Narrative | Performed At | + + + | EXAM: WI CHEST 1 VIEW HISTORY: ECMO. Evaluate cannula placement. | [facility] | | COMPARISON: Yesterday FINDINGS: Endotracheal tube tip is | RADIOLOGY VOICE | | 2.5 cm above the jefferson. Enteric tube tip in the stomach. 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 Evaluate cannula placement.COMPARISON: YesterdayFINDINGS: | | Endotracheal tube tip is 2.5 cm above the jefferson. Enteric tube tip in the stomach. | | [place] catheter tip projects in the main pulmonary [...] [facility]NA [facility] | [address] | [place], [place] | | | JULIANN SILVA OF CARE | [facility] | [address] | | | TESTS | | | [...] RODGERS | [address] | [place], [place] | | | RICARDO POINT OF CARE | [facility] | [address] | | | TESTS | | | [...] + + + + + | [facility] | [address] | [place] [address] | | | SERVICES, CORE [...] [facility] | [address] | [place], [place] | | | RICARDO POINT OF CARE | [address] | [address] | | | TESTS | | | [...] BLUAM | [address] | [place], [place] | | | JULIANN SILVA OF CARE | [address] | [address] | | | TESTS | | | [...] + + + + + | [facility] | [address] | [place] [address] | | | SERVICES, | [address] [...] [facility] | [address] | [place] [address] | | | SERVICES, | [address] [...] + + + + | PRODUCT | [id number] | | [facility] | | | UNIT [...] + + + + | EXPIRATION | [id number] | | [facility] | | | DATE [...] + + + + | BLOOD | [id number] | | [facility] | | | PRODUCT [...] HOSPITAL LAB[facility] | [address] | [place] [address] | | | ARASH | [address] [...] (A) | 5 - 10 Minutes | [facility] - | | | CITRATED | | | [facility] | | | | | | JULIANN SILVA | | | | | | OF CARE | | | | | | TESTS | | + + + + + + | K - | 3.1 (A) | 1 - 3 Minutes | [facility] - | | | CITRATED | [...] R[facility] | [address] | [place], [place] | | | JULIANN SILVA OF [place] | [address] | [address] | | | TESTS | | | [...] [facility] | [address] | [place] [address] | | | SERVICES, CORE | PARK [...] [facility] | [address] | [place] [address] | | | SERVICES, CORE | PARK [...] [facility] | [address] | [place] [address] | | | SERVICES, CORE | PARK [...] [facility] | [address] | [place] [address] | | | SERVICES, CORE | PARK [...] | | | LABORATORY | | | GUAMANIAN | | | SERVICES, | | | [...] the MDRD equation recommended by the | [facility] | | National Kidney Disease Education [...] HOSPITAL LABORATORY | [address] | [place] [address] | | | SERVICES, CORE | TABITH[address] [...] + + + + + | [facility] | [address] | [place] [address] | | | SERVICES, CORE | PARK [...] 2.5 mg/dL | [facility] | | | DENISEMA | | | [...] HOSPITAL LAB[facility] | [address] | [place] [address] | | | ARASH, ИРИНА | PARK [...] [facility] | [address] | [place] [address] | | | ARASH, ИРИНА | TABITH[address] [...] MARIA | [address] | [place], [place] | | | JULIANN SILVA OF [place] | [address] | [address] | | | TESTS | | | [...] HOSPITAL [facility] | [address] | [place] [address] | | | SERVICES, ИРИНА | TABITHA [...] [facility] | [address] | [place] [address] | | | SERVICES, ИРИНА | TABITHA [...] [facility] | [address] | [place], [place] | | | JULIANN SILVA OF [place] | [facility] | [address] | | | TESTS | | | [...] RODGERS | [address] | [place], [place] | | | RICARDO POINT OF CARE | [address] | [address] | | | TESTS | | | [...] MARIA | [address] | [place], [place] | | | JULIANN SILVA OF [facility] | [address] | [address] | | | TESTS | | | [...] MARIA | [address] | [place] | | | JULIANN SILVA OF [facility] | [facility] | [address] | | | TESTS | | | [...] + + + + + | [facility] | [address] | [place] [address] | | | SERVICES, CORE | TABITHA [...] [facility] | [address] | [place], [place] | | | JULIANN SILVA OF CARE | [address] | [address] | | | TESTS | | | [...] [facility] | [address] | [place] [address] | | | SERVICES, CORE | PARK [...] [facility] | [address] | [place] [address] | | | ИРИНА ANTOINE | TABITHA [...] [facility] | [address] | [place] [address] | | | SERVICES, CORE | TABITHA [...] HOSPITAL LAB[facility] | [address] | [place] [address] | | | ИРИНА ANTOINE | TABITHA [...] [facility] | [address] | [place] [address] | | | SERVICES, CORE | TABITHA [...] + | [facility] | [address] [facility] [address] [address] | [place], [place] | | | RICARDO POINT OF CARE | [address] | [address] | | | TESTS | | | [...] + + + | [facility] | [address] | [place], [place] | | | JULIANN SILVA OF CARE | [address] | [address] | | | TESTS | | | [...] [facility] | [address] | [place] [address] | | | SERVICES, CORE | PARK [...] MARIA | [address] | [place], [place] | | | JULIANN SILVA OF CARE | [address] | [address] | | | TESTS | | | [...] [facility] | [address] | [place], [place] | | | JULIANN SILVA OF [place] | [address] | [address] | | | TESTS | | | [...] + + + + | PRODUCT | [id number] | | [facility] | | | UNIT [...] + + + + | EXPIRATION | [id number] | | [facility] | | | DATE [...] + + + + | BLOOD | [id number] | | [facility] | | | PRODUCT [...] + + + + + | [facility] | [address] | [place] [address] | | | SERVICES, | [address] [...] + + + + | PRODUCT | [id number] | | [facility] | | | UNIT [...] + + + + | EXPIRATION | [id number] | | [facility] | | | DATE [...] + + + + | BLOOD | [id number] | | [facility] | | | PRODUCT [...] [facility] | [address] | [place] [address] | | | SERVICES, | [address] [...] [facility] | [address] | [place], [place] | | | RICARDO POINT OF CARE | [facility] | [address] | | | TESTS | | | [...] [facility] | [address] | [place] [address] | | | SERVICES, ИРИНА | [address] [...] + + + + + | [facility] | [address] | [place] [address] | | | SERVICES, CORE | PARK [...] + | [facility] | [address] [facility] | [place] [address] | | | SERVICES, CORE | TABITHA [...] [facility] | [address] | [place] [address] | | | SERVICES, CORE | TABITHA [...] | | | LABORATORY | | | GUAMANIAN | | | SERVICES, | | | [...] 11 | 4 - 11 mmol/L | [facility] | | | GAP(ALB | | [...] + + + + + | [facility] | [address] [facility] | [place] [address] | | | ИРИНА ANTOINE | TABITHA [...] [facility] | [address] | [place] [address] | | | ИРИНА ANTOINE | PARK [...] + + + + + | [facility] | [address] | [place] [address] | | | SERVICES, ИРИНА | TABITHA [...] [facility] | [address] | [place] [address] | | | SERVICES, CORE | TABITHA [...] [facility] | [address] | [place], [place] | | | RICARDO POINT OF [facility] | [address] | [address] | | | TESTS | | | [...] + + + + + | [facility] | [address] | [place] [address] | | | SERVICES, ИРИНА | TABITHA [...] [facility] | [address] | [place] | | | JULIANN SILVA [facility] [place] | [address] | [address] | | | TESTS | | | | + + + + + [facility] DUPLEX LOWER EXTREMITY RT (03/17/2017 12:31 [...] Note | + + | Service Account, [employer] - 03/17/2017 6:18 PM PDT [...] + + | Performing | Address | City[facility] | Phone Number | | [...] Note | + + | Service Account, [employer] - 03/17/2017 6:17 PM PDT [...] [facility] | [address] | [place], [place] | | | JULIANN SIL[place] | [facility] | [address] | | | TESTS | | | [...] [facility] | [address] | [place] [address] | | | SERVICES, CORE | PARK [...] Performed At | + + -------+ | [facility] | [facility] DE [facility] OF | | [facility] Adult Echocardiography | CARDIOLOG Y | | Laboratory [address] [place] [address], | | | [place] [address] Pt Name: | | | RON MCKEON Study Date/Time 03/17/2017 / 10:30:26 | | | AMMRN: [id number] Most recent | | | prior: 03/15/2017Acc #: [id number] No. | | | previous echos: 1DOB: 1955 61 years Heart | | | Rate: 139 bpmHeight: 69.0 | | | in Blood Pressure: 133/83 | | | mm/HgWeight: 258.0 | | | lb Gender: | | | MBSA: 2.30 m2 Order | | | ID: [id number] Dairy Specialist: Mauri Domingo LORENZO | | | Referring [...] | | | Report electronically signed by: [id number] Jen Ovalle MD, PhD | | | (03/17/2017, 1:53:40 PM) Final | | | | | |Report electronically signed by: [id number] Jen Ovalle MD, PhD (03/17/2017, | | |1:53:40 PM) | | | | | | | | | | | | Final | | + + -------+ + + | Procedure Note | + + | Interface, Cardiology Results - 03/17/2017 1:53 PM [facility] | | [facility] Echocardi[facility] Laboratory [address] [place] [address] | | Center [place], [place] [address] Pt Name: RON Chaudhary | | MIKE Study Date/Time 03/17/2017 / 10:30:26 AMMRN: [id number] Most | | recent prior: 03/15/2017Acc #: [id number] No. previous echos: 1DOB: | | 1955 61 years Heart Rate: 139 bpmHeight: 69.0 in Blood | | Pressure: 133/83 mm/HgWeight: 258.0 lb Gender: MBSA: | | 2.30 m2 Order ID: [id number] Dairy Specialist: Mauri Domingo | | RDCSReferring Provider: Mellisa [...] | | Scoring: Report electronically signed by: [id number] Jen Ovlale MD, PhD (03/17/2017, | | 1:53:40 PM) [...] | | | |Report electronically signed by: [id number] Jen Ovalle MD, PhD (03/17/2017, | |1:53:40 PM) | | | | | | | | Final | + + + + + + + | Performing | Address | City/State/Zipcode | Phone Number | | Organization | | | | + + + + + | [facility] | [address] | [place], [place] | | | CARDIOLOGY | [address] | [address] | | + + + + + [...] MARRANDIAM | [address] | [place], [place] | | | JULIANN SILVA OF CARE | [address] | [address] | | | TESTS | | | [...] - BLUAM | [address] | [place], [place] | | | RICARDO POINT OF CARE | [facility] | [address] | | | TESTS | | | [...] + | [facility] | [address] [facility] [address] | [place] [address] | | | SERVICES, CORE | PARK [...] + + + + + | [facility] | [address] | [place] [address] | | | SERVICES, CORE | TABITHA [...] [facility] | [address] | [place] [address] | | | SERVICES, CORE | TABITHA [...] [facility] | [address] | [place], [place] | | | JULIANN SILVA OF CARE | [address] | [address] | | | TESTS | | | [...] [facility] | [address] | [place], [place] | | | RICARDO POINT OF CARE | [address] | [address] | | | TESTS | | | [...] MAR[facility] | 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 | [place] [address] | | | [facility] | [address] | | | [...] HOSPITAL LAB[facility]ORY | [address] | [place] [address] | | | SERVICES, CORE | TABITHA [...] (H) | 60 - 99 mg/dL | [facility] - | [...] R[facility] | [address] | [place], [place] | | | JULIANN SILVA OF CARE | [address] | [address] | | | TESTS | | | [...] + + + + + | [facility] | [address] | [place] [address] | | | SERVICES, CORE | PARK [...] | 56 (L) | >300 mmHg | ARMENDY | | | RATIO | | | [...] HOSPITAL LAB[facility] | [address] | [place] [address] | | | SERVICES, CORE | TABITHA [...] [facility] | [address] [facility] | [place] [address] | | | ИРИНА ANTOINE | TABITHA [...] + + + + + | [facility] | [address] | [place] [address] | | | SERVICES, CORE | TABITHA [...] [facility] | [address] | [place] [address] | | | SERVICES, CORE | PARK [...] [facility] | [address] | [place] [address] | | | SERVICES, ИРИНА | PARK [...] + + | [facility] | [address] | [place] [address] | | | SERVICES, CORE | TABITHA [...] [facility] | [address] [facility] [address] | [place] [address] | | | SERVICES, ИРИНА | TABITHA [...] HOSPITAL LABORATORY | [address] | [place] [address] | | | ARASH, CORE | PARK [...] + + + + + | [facility] | [address] | [place] [address] | | | SERVICES, CORE | TABITHA [...] | [facility] | [address] [facility] | [place], [place] | | | CARDIOLOGY | [address] | [address] | | + + + + + WZ-QH-ULZ-HB,POC RT (03/17/2017 12:44 AM PDT) + + [...] MARRANDIAM | [address] | [place], [place] | | | JULIANN SILVA OF CARE | [address] | [address] | | | TESTS | | | [...] MARIA | [address] | [place], [place] | | | JULIANN SILVA OF [facility]LEX[facility] | [address] | [address] | | | TESTS | | | [...] Electronically signed on 07/27/2017 at 3:40 PM Rcoio Galloway MD | | + + + + + + + + | Performing | Address | City/State/Zipcode | Phone Number | | Organization | | | | + + + + + | [facility] | [address] | [place], [place] | | | RICARDO POINT OF CARE | [address] | [address] | | | TESTS | | | [...] [facility] | [address] | [place] [address] | | | SERVICES, CORE | PARK [...] MARQU[facility] | [address] | [place], [place] | | | RICARDO POINT OF CARE | [address] | [address] | | | TESTS | | | [...] RODGERS | [address] | [place], [place] | | | JULIANN SILVA OF CARE | [address] | [address] | | | TESTS | | | [...] + + + + + | [facility] | [address] | [place] [address] | | | ИРИНА ANTOINE | TABITHA [...] MARQU[facility] | [address] | [place], [place] | | | CHRISTIE SILVA CARE | [facility] | [address] | | | TESTS | | | [...] HOSPITAL LAB[facility] | [address] | [place] [address] | | | SERVICES, CORE | TABITHA [...] + + + | [facility] | [address] | [place], [place] | | | RICARDO POINT OF CARE | [address] | [address] | | | TESTS | | | [...] MARQUAM | [address] | [place], [place] | | | RICARDO POINT OF CARE | [facility] | [address] | | | TESTS | | | [...] | pause verifies correct patient, procedure, equipment, patient support partner | | | and site/side marked as [...] + + + + + | [facility] | [address] | [place] [address] | | | SERVICES, CORE | TABITHA [...] [facility] | [address] | [place] [address] | | | SERVICES, CORE | TABITHA [...] + + + + + | [facility] | [address] [facility] | [place] [address] | | | SERVICES, CORE | PARK [...] [facility] | [address] | [place] [address] | | | SERVICES, CORE | PARK [...] | | | LABORATORY | | | GUAMANIAN | | | SERVICES, | | | [...] HOSPITAL [facility] | [address] | [place] [address] | | | ИРИНА ANTOINE | TABITHA [...] [facility] | [address] | [place] [address] | | | SERVICES, CORE [...] [facility] | [address] | [place] [address] | | | SERVICES, CORE | TABITHA [...] MAR[facility] | [address] | [place], [place] | | | JULIANN SILVA OF CARE | [address] | [address] | | | TESTS | | | [...] - MARQU[facility] | [address] | [place], [place] | | | RICARDO POINT OF CARE | [address] | [address] | | | TESTS | | | [...] R[facility] | [address] | [place], [place] | | | RICARDO POINT OF CARE | [address] | [address] | | | TESTS | | | [...] MARQU[facility] | [address] | [place], [place] | | | RICARDO POINT OF CARE | [address] | [address] | | | TESTS | | | [...] [facility] | [address] | [place] [address] | | | ИРИНА ANTOINE | TABITHA [...] | | | LABORATORY | | | GUAMANIAN | | | SERVICES, | | | [...] + + | [facility] | [address] | [place] [address] | | | SERVICES, CORE | TABITHA [...] MARQUAM | [address] | [place], [place] | | | RICARDO POINT OF CARE | [address] | [address] | | | TESTS | | | [...] [facility] | [address] | [place] [address] | | | ИРИНА ANTOINE | TABITHA [...] R[facility] | [address] | [place], [place] | | | JULIANN SILVA OF [place] | [address] | [address] | | | TESTS | | | | + + + + + OPERATION RECORD (03/16/2017 9:30 AM PDT) + + | Procedure Note | + + | Dale Mak MD - 03/15/2017 3:42 PM PDT Date of Service: 03/15/2017 Attending | | Surgeon:Ron Powell MD. Telephone Services Sales Representative(s):Dale Mak MD. | | Preoperative Diagnoses: 1.Cardiogenic [...] cannulation with micropuncture | | wire. A 7-Cuban sheath was placed in an antegrade direction down the SFA for distal | | perfusion. A 19-Cuban arterial cannula was placed in a retrograde [...] 03/15/2017 15:23:00DT: 03/15/2017 15:42:27Job #: | | [id number] | | | |A 19-Cuban arterial cannula was placed in a retrograde [...] |HS/MODL | | | | | | /[id number] | + + CBC (HEMOGRAM) ONLY (03/16/2017 [...] + | [facility] | [address] [facility] | [place] [address] | | | ARASH, ИРИНА | TABITHA [...] + + + + + | [facility] | [address] | [place] [address] | | | SERVICES, CORE | TABITHA [...] HOSPITAL LABORATORY | [address] | [place] [address] | | | SERVICES, CORE | PARK [...] - MARQU[facility] | [address] | [place], [place] | | | JULIANN SILVA OF CARE | [facility] | [address] | | | TESTS | | | [...] NINOSKAQU[facility] | [address] | [place], [place] | | | RICARDO POINT OF CARE | [address] | [address] | | | TESTS | | | [...] R[facility] | [address] | [place], [place] | | | JULIANN SILVA OF [place] | [facility] | [address] | | | TESTS | | | | + + + + + X-RAY PORTABLE CHEST 1 VIEW (03/16/2017 5:44 AM PDT) + + | Specimen | + + | | + + + + + | Narrative | Performed At | + + + | EXAM: WI CHEST 1 VIEW HISTORY: Evaluate cannula placement. heart | [facility] | | failure. COMPARISON: Yesterday FINDINGS: Endotracheal | RADIOLOGY VOICE | | tube, [place]лег catheter and enteric tube remain in place. [...] Note | + + | Service Account, [employer] Data In Interface - 03/16/2017 8:27 AM PDT EXAM: WI CHEST 1 | | VIEW HISTORY: Evaluate cannula placement. heart failure.COMPARISON: YesterdayFINDINGS: | | Endotracheal tube, [place]лег catheter and enteric tube remain in place. [...] MARQU[facility] | [address] | [place], [place] | | | JULIANN SILVA OF CARE | [address] | [address] | | | TESTS | | | [...] RODGERS | [address] | [place], [place] | | | JULIANN SILVA OF [place] | [facility] | [address] | | | TESTS | | | | + + + + + QS-DM-SOP-HBPOC RT (03/16/2017 3:42 AM PDT) + + [...] [facility] | [address] | [place], [place] | | | RICARDO POINT OF CARE | [address] | [address] | | | TESTS | | | [...] MARIA | [address] | [place], [place] | | | JULIANN SILVA OF [place] | [address] | [address] | | | TESTS | | | [...] HOSPITAL LAB[facility] | [address] | [place] [address] | | | SERVICES, CORE | TABITHA [...] R[facility] | [address] | [place], [place] | | | RICARDO POINT OF [place] | [address] | [address] | | | TESTS | | | [...] [facility] | [address] | [place] [address] | | | ИРИНА ANTOINE | TABITHA [...] + + + + + | [facility] | [address] [facility] | [place] [address] | | | SERVICES, CORE | PARK [...] | | | LABORATORY | | | GUAMANIAN | | | SERVICES, | | | [...] [facility] | [address] | [place] [address] | | | SERVICES, CORE [...] [facility] | [address] | [place] [address] | | | SERVICES, CORE | TABITHA [...] + + + + + | [facility] | [address] | [place] [address] | | | SERVICES, CORE | TABITHA [...] HOSPITAL LABORATORY | [address] | [place] [address] | | | SERVICES, CORE | [address] | | | + + + + + MAGNESIUM, PLASMA (03/16/2017 3:35 AM PDT) + +-------+ + + + | Component | Value | Ref Range | Performed | Pathologist | | | | | At | Signature | + +-------+ + + + | MAGNESIUM,P | 2.1 | 1.8 - 2.5 mg/dL | ARMENDY [...] HOSPITAL LAB[facility] | [address] | [place] [address] | | | SERVICES, CORE | TABITHA [...] MARIA | [address] | [place], [place] | | | JULIANN SILVA OF [place] | [address] | [address] | | | TESTS | | | [...] HOSPITAL [facility] | [address] | [place] [address] | | | ARASH, ИРИНА | TABITHA [...] MARIA | [address] | [place], [place] | | | JULIANN SILVA OF CARE | [address] | [address] | | | TESTS | | | [...] + + + + + | [facility] | [address] [facility] | [place] [address] | | | SERVICES, CORE | TABITHA [...] | | | LABORATORY | | | GUAMANIAN | | | SERVICES, | | | [...] | + + + + + | [facility] | [address] | [place] [address] | | | ARASH, CORE | [address] | | | + + + + + EG-IX-QPZ-HB,POC RT (03/16/2017 12:22 AM PDT) + + [...] [facility] | [address] | [place], [place] | | | RICARDO POINT OF CARE | [address] | [address] | | | TESTS | | | [...] MAR[facility] | [address] | [place], [place] | | | JULIANN SILVA OF CARE | [address] | [address] | | | TESTS | | | [...] [facility] | [address] | [place], [place] | | | JULIANN SILVA OF CARE | [address] | [address] | | | TESTS | | | [...] [facility] | [address] | [place], [place] | | | RICARDO POINT OF CARE | [address] | [address] | | | TESTS | | | | + + + + + X-RAY PORTABLE CHEST 1 VIEW (03/15/2017 9:44 PM PDT) + + | Specimen | + + | | + + + + + | Narrative | Performed At | + + + | EXAM: WI CHEST 1 VIEW HISTORY: Evaluate new endotracheal [...] Note | + + | Service Account, [employer] In Interface - 03/16/2017 8:27 AM PDT EXAM: WI CHEST 1 | | VIEW HISTORY: Evaluate [...] [facility] | [address] | [place], [place] | | | JULIANN SILVA OF CARE | [facility] | [address] | | | TESTS | | | [...] MARIA | [address] | [place], [place] | | | JULIANN SILVA OF [facility] | [address] | [address] | | | TESTS | | | [...] [facility] | [address] | [place] [address] | | | SERVICES, CORE | PARK [...] + + | [facility] | [address] | [place] [address] | | | SERVICES, CORE | TABITHA [...] | + + + + + | [facility] | [address] | [place] [address] | | | SERVICES, ИРИНА | TABITHA [...] | Ambubag and suction available at bedside. [facility] Mac 4 used to | | | visualize airway, Grade III view with old blood and new blood | | | present in laryngopharynx plus edema. A [employer] | | | catheter was [...] [facility] | [address] | [place], [place] | | | JULIANN SILVA OF CARE | [address] | [address] | | | TESTS | | | | + + + + + PR-UK-YTN-HB,POC RT (03/15/2017 7:39 PM PDT) + + [...] [facility] | [address] | [place], [place] | | | JULIANN SILVA OF [place] | [address] | [address] | | | TESTS | | | [...] [facility] | [address] | [place], [place] | | | RICARDO POINT OF CARE | [address] | [address] | | | TESTS | | | [...] [facility] | [address] | [place], [place] | | | RICARDO [facility] | [facility] | [address] | | | TESTS | | | | + + + + + X-RAY PORTABLE CHEST 1 VIEW (03/15/2017 5:51 PM PDT) + + | Specimen | + + | | + + + + + | Narrative | Performed At | + + + | STUDY: WI CHEST 1 VIEW 03/15/17 17:40:08 COMPARISON: 03/15/17 [...] Interface - 03/15/2017 6:20 PM PDT STUDY: WI CHEST 1 | | VIEW 03/15/17 17:40:08COMPARISON: [...] given by: Power of | | | prosecuting attorney Patient identity confirmed per policy: Yes Team Pause: | | | Immediatly prior to the procedure a pause per protocol was called. A | | | pause verifies correct patient, procedure, equipment, patient support partner | | | and site/side marked as [...] modified Seldinger technique (a | | | knbyfqgr-ibhu-ofq-ibtndq-yfdy-qokh-zvoirgk-jnn-whyshylf) was used for | | | vessel [...] Name: Ron Mckeon MRN: | | | [id number] 03/15/2017 Time: 5:26 PM Diagnosis: shock At [...] Ramon Alvarado | | | MD [place], [facility] Emergency Medicine Personal Pager: [phone] | | | | | + + [...] HOSPITAL LAB[facility]ORY | [address] | [place] [address] | | | SERVICES, CORE | TABITHA [...] [facility] | [address] | [place], [place] | | | RICARDO POINT OF CARE | [address] | [address] | | | TESTS | | | [...] [facility] | [address] | [place], [place] | | | JULIANN SILVA OF CARE | [address] | [address] | | | TESTS | | | | + + + + + X-RAY PORTABLE CHEST 1 VIEW (03/15/2017 4:03 PM PDT) + + | Specimen | + + | | + + + + + | Narrative | Performed At | + + + | EXAM: WI CHEST 1 VIEW 03/15/17 15:42:37 HISTORY: ECMO [...] Note | + + | Service Account, [employer] In Interface - 03/15/2017 6:18 PM PDT EXAM: WI CHEST 1 | | VIEW 03/15/17 15:42:37 [...] [facility] | [address] | [place], [place] | | | JULIANN SILVA OF CARE | [address] | [address] | | | TESTS | | | [...] [facility] | [address] | [place], [place] | | | RICARDO POINT OF CARE | [address] | [address] | | | TESTS | | | [...] BL[facility] | [address] | [place], [place] | | | JULIANN SILVA OF [facility] | [address] | [address] | | | TESTS | | | [...] HOSPITAL [facility] | [address] | [place] [address] | | | SERVICES, CORE | TABITHA [...] HOSPITAL LABORATORY | [address] | [place] [address] | | | ARASH, ИРИНА | TABITHA [...] HOSPITAL LABORATORY | [address] | [place] [address] | | | SERVICES, CORE | PARK [...] + + + + + | [facility] | [address] [facility] | [place] [address] | | | SERVICES, CORE | TABITHA [...] | | | LABORATORY | | | GUAMANIAN | | | SERVICES, | | | [...] + + + + + | [facility] | [address] | [place] [address] | | | SERVICES, CORE | TABITHA [...] - Mail Code [id number] [address] [facility] | | | [place] [address] | | + + + X-RAY PORTABLE CHEST 1 VIEW (03/15/2017 2:32 PM PDT) + + | Specimen | + + | | + + + + + | Narrative | Performed At | + + + | STUDY: WI CHEST 1 VIEW 03/15/17 14:21:08 COMPARISON: 03/15/17. [...] Note | + + | Service Account, [employer] In Interface - 03/15/2017 2:46 PM PDT STUDY: WI CHEST 1 | | VIEW 03/15/17 14:21:08COMPARISON: [...] + + + + | PRODUCT | [id number] | | [facility] | | | UNIT [...] + + + + | EXPIRATION | [id number] | | [facility] | | | DATE [...] + + + + | BLOOD | [id number] | | [facility] | | | PRODUCT [...] [facility] | [address] | [place] [address] | | | SERVICES, | [address] [...] + + + + | PRODUCT | [id number] | | [facility] | | | UNIT [...] + + + + | EXPIRATION | [id number] | | [facility] | | | DATE [...] + + + + | BLOOD | [id number] | | [facility] | | | PRODUCT [...] [facility] | [address] | [place] [address] | | | SERVICES, | [address] [...] + + + + | PRODUCT | [id number] | | [facility] | | | UNIT [...] + + + + | EXPIRATION | [id number] | | [facility] | | | DATE [...] + + + + | BLOOD | [id number] | | [facility] | | | PRODUCT [...] [facility] | [address] | [place] [address] | | | SERVICES, | [address] [...] + + + + | PRODUCT | [id number] | | [facility] | | | UNIT [...] + + + + | EXPIRATION | [id number] | | [facility] | | | DATE [...] + + + + | BLOOD | [id number] | | [facility] | | | PRODUCT [...] HOSPITAL LAB[facility] | [address] | [place] [address] | | | ARASH, | [address]ITH[address] | | | | TRANSFUSION MEDICINE | | | | + + + + + YO-ND-UXW-HB,POC RT (03/15/2017 1:23 PM PDT) + + + + + + | Component | Value | Ref Range | Performed | Pathologist | | | | | At | Signature | + + + + + + | HCO3 | 19.6 (L) | 21 - 28 mmol/L | [facility] - | | | ARTERIAL, | | [...] [facility] | [address] | [place], [place] | | | JULIANN SILVA OF CARE | [facility] | [address] | | | TESTS | | | [...] MARIA | [address] | [place], [place] | | | RICARDO POINT OF CARE | [address] | [address] | | | TESTS | | | [...] Performed At | + + + | [facility] | [facility] DEPT OF | | [facility] Adult Echocardiography | CARDIOLOGY | | Laboratory [address] [place] [address] | | | [place] [address] Pt Name: | | | RON Neena MCKEON Study Date/Time 03/15/2017 / 12:54:21 | | | PMMRN: [id number] Most recent | | | prior: -Acc #: [id number] No. previous | | | echos: 0DOB: 1955 61 years Heart Rate: | | | 145 bpmHeight: Blood | | | Pressure: 90/67 mm/HgWeight: 249.0 | | | lb Gender: | | | MBSA: 2.34 m2 Order | | | ID: [id number] Dairy Specialist: Vahid Parmar [facility] | | | Referring Provider: Gaurav [...] Report electronically signed by: | | | [id number] Yajaira Johnson MD (03/15/2017, 3:38:52 PM) Final | | | | | | | | | | | | Final | | + + + + + | Procedure Note | + + | Interface, Cardiology Results - 03/15/2017 3:38 PM [facility] [employer] [facility] | | [facility] Echocardiography Laboratory [address] [place] [address] | | Center [place], [place] [address] Pt Name: RON Chaudhary | | MIKE Study Date/Time 03/15/2017 / 12:54:21 PMMRN: [id number] Most | | recent prior: -Acc #: [id number] No. previous echos: 0DOB: 1955 61 | | years Heart Rate: 145 bpmHeight: Blood Pressure: 90/67 | | mm/HgWeight: 249.0 lb Gender: MBSA: 2.34 m2 | | Order ID: [id number] Dairy Specialist[facility] | | Gaurav Castellanos Location: [...] values Report electronically signed by: | | [id number] Yajaira Johnson MD (03/15/2017, 3:38:52 PM) Final [...] | | | |Report electronically signed by: [id number] Yajaira Johnson MD (03/15/2017, 3:38:52 PM) | | | | | | | | Final | + + + + + + + | Performing | Address | City/State[facility] | Phone Number | | Organization | | | | + + + + + | [facility] | [address] | [place], [place] | | | CARDIOLOGY | [address] | [address] | | + + + + + X-RAY PORTABLE CHEST 1 VIEW (03/15/2017 12:46 PM PDT) + + | Specimen | + + | | + + + + + | Narrative | Performed At | + + + | STUDY: WI CHEST 1 VIEW 03/15/17 12:12:08 COMPARISON: None. [...] Note | + + | Service Account, [employer] Res In Interface - 03/15/2017 1:10 PM PDT STUDY: WI CHEST 1 | | VIEW 03/15/17 12:12:08COMPARISON: [...] DEPT OF | [address] | [place], [place] | | | CARDIOLOGY | [address] | [address] | | + + + + + [...] [facility] | [address] | [place] [address] | | | SERVICES, | [address] [...] [facility] | [address] | [place] [address] | | | SERVICES, | [address] [...] [facility] | [address] | [place] [address] | | | ARASH, ИРИНА | [address] [...] [facility] | [address] | [place] [address] | | | SERVICES, ИРИНА | [address] [...] [facility] | [address] | [place] [address] | | | SERVICES, | [address] [...] [facility] | [address] | [place] [address] | | | SERVICES, CORE | PARK [...] + + + + + | [facility] | [address] [facility] | [place] [address] | | | SERVICES, CORE | TABITHA [...] + + + + + | [facility] | [address] | [place] [address] | | | SERVICES, CORE | TABITH[address] [...] | | | LABORATORY | | | GUAMANIAN | | | SERVICES, | | | [...] | + + + + + | [facility] | [address] | [place] [address] | | | SERVICES, CORE | [address] | | | + + + + + AP-KS-TDG-DWAINEPOC RT (03/15/2017 12:16 PM PDT) + + [...] [facility] | [address] | [place], [place] | | | [facility] | [address] | [address] | | | TESTS | | | [...] of unspecified type of vessel, | | chevak or graft | + + | Tongue [...] 5:37 | | | | | dose, [place] 03/29/17 at 0530 | | AM PDT [...] | | | | ONCE, 1 dose, [facility] 03/19/17 at 1415 | | PM PDT [...] | | | | ONCE, 1 dose, [facility] 03/20/17 at | | AM PDT [...] 10:04 | | | | | dose, [place] 03/22/17 at 1000 | | AM PDT [...] | First dose on [facility] 03/19/17 at | | AM PDT | [...] 4:45 | | | | | dose, [facility] 03/19/17 at 1630 | | PM PDT | | | | + +-------+ +-------+---+---+ +---+---+ | | | +---+---+ + +-------+ +-------+---+---+ | furosemide (LASIX) injection 20 | Given | 03/20/20 | 20 mg | | | | mg 20 mg, intravenous, ONCE, 3:07 | | | | | dose, [facility] 03/20/17 at 0400 | | AM [...] | | | | | | Starting [facility] 03/19/17 at 1900, | | | | [...] | | | | Until [facility] 04/02/17 at 2030, | | | | [...] | | | | ONCE, 1 dose, [place] 03/15/17 at 1815 | | PM PDT [...] | | | | | | Until [facility] 04/02/17 at 2030, severe | | | [...] | | | | | 1 dose, [facility] 03/18/17 at 0130 | | AM PDT [...]
--- OUTSIDE RECORDS SUMMARY | ~2019-02-13 | XMS | Encounter Summary ---
Demographics + + + | Address | [address] | | | [place] [address] | + + + | Home Phone [...] | [place] | | | | | [address] | | + + + + + Care Team Providers + +------+ + | Care Spring Fitter Helper Name | Role | Phone | [...] | | | involving | [address] | [place] | | | | | catawba | MARKO MCGUIRE | MARKO Rocha | | | | | coronary | [address] | [address] | | | | | artery of | Phone: | Phone: | | | | | catawba heart | [phone] | [phone] | | | | | without | Fax: | Fax: | | | | | angina | [phone] | [phone] | | | | | pectoris | | | + + + + + + + Encounter Details +--------+---------+ + + + | Date | Type | Department | Care Team | Description | +--------+---------+ + + + | 11/25/ | Office | [facility] | Carolina Randy, | Coronary artery | | 2019 | Visit | MED [facility] CARDIAC | MD [address] | disease involving | | | | REHABILITATION [address] [place], | catawba coronary | | | | [address] [place] | [place] [address] | artery of catawba | | | | [place] [address] | [phone] | heart without angina | | | | [phone] | | pectoris (Primary | | | [...] of this encounter Progress Jonah Coker-Cheri Kendrick, LINK TRAINER MAINTENANCE MAN - 11/25/2018 1000 PDTFormatting of this note might be diff erent from the original. [facility] [address] [facility] [address] Cardiac Rehab Date: 11/25/2018 Patient Information Patient [...] Bob Will/: 1955/ ly signed by Cheri Havrey RRT at 11/25/2018 12:48 PDTdocumented in this encou nter Plan of Treatment +--------+ + + + + | Date | Type | Specialty | Care Team | Description | +--------+ + + + + | 03/08/ | Office | Nephrology | [facility], | | | 2018 | Visit | | ADARSH [address] | | | | | | [address] , [facility] | | | | | | [address] | | | | | | [phone] | | | | | | | | +--------+ + + + + | 03/24/ | Procedure | Cardiology | | | | 2018 | visit | | | | +--------+ + + + + | 03/24/ | Office | Cardiology | Jenny, | | | 2018 | Visit | | ADARSH Santo [address] | | | | | | [place], | | | | | | [place] [address] | | | | | | [phone] | | | | | | | | +--------+ + + + + documented as of this encounter Visit Diagnoses + + | Diagnosis | + + | Coronary artery disease involving catawba coronary artery 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
--- OUTSIDE RECORDS SUMMARY | ~2019-02-13 | XMS | Clinical Summary ---
Demographics + + + | Address | [address] [place] [address] [address] | | | [place] [address] | + + + | Home Phone [...] | | | | | [place] [address] | | + + + + + Care Team Providers + +------+ + | Care Emr Trainer Name | Role | Phone | + +------+ + | Chato Matson MD | PP | | + +------+ + Source Comments EULOGIO is fully live on both [facility] Ambulatory and [facility] InPatient.[facility] Allergies No Known Allergies Medications [...] resynchronization therapy | 10/17/2017 | | 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 Patient was difficult intubation at outside asset availability leader. | | -secretions improving, cough strong -s/p [...] stayExtubated 03/22, started on | | [place] [id number] infusion begun 03/22 for daily goal -1 [...] during cath | | lab procedure at [facility]. Was shocked 17 times | | [...] | | | INC | | | [id number] | | Tejal Pettit MD | | | | | | X / | | | | | | | | /[address] | | | | | | | | [address] | + +------+--------+ +--------+--------+--------+ + + | [...] CROSS | | 16-Pre | 8 | [address] | | | | [place] | | sent | | [place], | | | | L | | | | [place] [address] | | + +--------+ +--------+ + +--------+ | MEDICAID [place] | OHP | [id number] | 03/07/20 | [phone] | [address] | Medica | | | PLUS | | 17-Pre | 6 | [address] | id | | | OPEN | | sent | | [place], [place] | | | | CARD | | | | [address] | | + +--------+ +--------+ + +--------+ + +--------+ +--------+ + + | Guarantor Name | Accoun | Relation to | Date | Phone | Billing Address | | | t Type | Patient | of | | | | | | | | | | + +--------+ +--------+ + + | Suman,Bob J | Person | Self | [birth year] | [address] | | | al/Negro | | 1956 | [phone] | [address] [place] | | | [place]wo | | | 8 (Home) | [address] | + +--------+ +--------+ + + Advance [...]
--- OUTSIDE RECORDS SUMMARY | ~2019-02-13 | XMS | Encounter Summary ---
Demographics + + + | Address | [address] | | | [place] [address] | + + + | Home Phone [...] [place] | | | | | [address] | | + + + + + Care Team Providers + +------+ + | Care Chief Telephone Operator Name | Role | Phone | [...] | Telephone | [facility] [place] | [place], | Medication Related | | 2018 | | CARDIOLOGY [address] | ADARSH Santo [address] | | | | | [place], | [place], | | | | | [place] [address] | [place] [address] | | | | | [phone] | [phone] | | | | | | | [...] | | | | | | [address] [place] [address], [place] | | | | | | [address] | | | | | | [address] | | | | | | | [...] | | | | | | [place] [address] | | | | | | [phone] | | | | | | | [...] starting 11/30/2018 | | | | little traverse coronary | until 12/01/2019 | | | | artery of little traverse | | | | | heart without angina | | | | | pectoris | | + +--------+ + + documented as of this encounter Visit Diagnoses + + | Diagnosis | + + | Coronary artery disease involving little traverse coronary artery of little traverse heart without | | angina pectoris - Primary | + + documented in this encounter"
--- OUTSIDE RECORDS SUMMARY | ~2019-02-13 | XMS | Encounter Summary ---
Demographics + + + | Address | [address] | | | [place] [address] | + + + | Home Phone [...] [place] | | | | | [address] | | + + + + + Care Team Providers + +------+ + | Care Mold Maintenance Technician Name | Role | Phone [...] | [address] | [address], [place] | | | | | [place], [place] | [address] [place], [place] | | | | | [address] | [address] | | | | | [phone] | | | +--------+ + + + [...] | | | | | [address] [facility] | | | | | | [address] | | | | | | [address] | | | | | | | | +--------+ + + + + | 03/24/ | Procedure | Cardiology | | | | 2018 | visit | | | | +--------+ + + + + | 03/24/ | Office | Cardiology | Jenny, | | | 2018 | Visit | | ADARSH Santo [address] | | | | | | [place], | | | | | | [place] [address] | | | | | | [phone] | | | | | | | [...]
--- OUTSIDE RECORDS SUMMARY | ~2019-02-13 | XMS | Encounter Summary ---
Demographics + + + | Address | [address] | | | [place] [address] | + + + | Home Phone [...] + + + | Author | [facility] | + + + | Organization | [facility] | + + + | Address | Unknown | + + + | Phone | Unavailable | + + + Support + + + + + | Name | Relationship | Address | Phone | + + + + + | Venice Will | ECON | [address] | | | | | [place] [address] | | + + + + + Care Team Providers + +------+ + | Care Rayon Tester Name | Role | Phone | [...] + | 10/16/ | Anesthesia | Cardiac Information Technology Project Manager | Terry Garvin, | | | 2018 | Event | at [facility] [address] | [facility] [address] [facility] | | | | | [facility] | [facility] | | | | | [facility] | [place], [place] | | | | | [place], [place] | [address] | | | | | [address] | [phone] | | | | | [phone] | | | +--------+ + + + [...] | | | | (groin access for labor relations supervisor) | RN | | +--------+ + + [...]
--- OUTSIDE RECORDS SUMMARY | ~2019-02-13 | XMS | Encounter Summary ---
Demographics + + + | Address | [address] | | | [place] [address] | + + + | Home Phone [...] | | | | | [place] [address] | | + + + + + Care Team Providers + +------+ + | Care Station Tender Name | Role | Phone | [...] | | | | for Health | [place] | | | | | | and Healing, | Research | | | | | | 8th Floor | [place] | | | | | | [facility] [place] | [place], [place] | | | | | | [address] | [address] | | | | | | Phone: | Phone: | | | | | | [phone] | [phone] | | | | | | Fax: | Fax: | | | | | | [phone] | [phone] | +--------+--------+ + + + + Reason [...] | | | Degeneration | MEDICINE | [place], [place] | | | | | of cervical | [address] | [address] | | | | | | [address] | Phone: | | | | | intervertebr | [place], | [phone] | | | | | al disc | [place] [address] | Fax: | | | | | chronic | Phone: | [phone] | | | | | spine pain | [phone] | | | | | | cervical | Fax: | | | | | | stenosis | [phone] | | +--------+--------+ + + + + Encounter Details +--------+---------+ + + + | Date | Type | Department | Care Team | Description | +--------+---------+ + + + | 02/18/ | Office | Spine Center at | Sapna Dutta MD | Neck pain; 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 | [facility] 8th Floor [address] | [address] | arthropathy, | | | | [address] | [place], [place] | cervical; Cervical | | | | Code: [facility] | [address] | spondylosis without | | | | for Health and | [phone] | myelopathy; | | | | Healing, 8th Floor | | Impingement syndrome | | | | [place], [place] | | of left shoulder; | | | | [address] | | Physical | | | | [phone] | | deconditioning; Post | | | [...] ideas. You will greatly increase your nemours foundation es of success if you take medicine [...] a smoking cessation program, such as the [employer] on's [place] from Smoking program. Set a quit date. [...] in several forms, many of them available ohnm-amq-kfhdcdn: Nicotine patches Nicotine gum and lozenges Nicotine [...] Smoking: After Your Visit", log into your [employer] account at [email or web address]. You can enter Y522 in the [employer]" search box. Not on [employer]? Review the [employer] section of your After Visit Summary for directions on ho w to sign up. [id number] [employer]. Care instructions adapted under license by [facility]. This care instruction is for use with your licensed healthcar e professional. If you have questions about a medical condition or this instruction, always ask your healthcare professional. [employer] disclaims any warranty or liabili ty for your use of this information. Content Version: 9.3.37144; Last Revised: March 26, 2011 Information about [...] your doctor have elected to try a detention solution, the nerve to the facet j [...] duration. [facility] [id number] signed by Sapna Dutta MD at 02/19/2012 11:42 AM PDT documented in this encounter Progress Notes Sapna Dutta MD - 02/19/2012 10:50 AM PDT [facility] Office Visit Date: 02/19/2012 Mr. Mckeon was referred for Spine Center evaluation by Yesi Guerrero MD [facility] [address] [place] [address]. Reason for consult: Chief Complaint: Chief Complaint [...] offered surgery. 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 He lives with h is of 7 years, and they get along well. 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 He does not feel that he has had effective therapy for this problem. . He is here to "just get rid of the pain." Mr. Mckeon served in the [employer] from 8436[address]5493, including the first [employer] war, d [employer] trucks. He was in combat. He does [...] by mouth two times daily. MULTIVITAMIN WITH OLT-OW-DZNRJRMQ-GINKGO 400 MCG-300 MCG-120 MG TAB Take by [...] : 1955 Age: 56 Sex: M Acct: [id number] Loc: MRI Exam Date: 11/05/2011 Status: REG REF Radiology No: Unit No: [id number] EXAM# TYPE/EXAM RESULT CPT CODE [id number] MRI/CERVICAL SPINE W/O CONTRAST [id number] EXAM: MRI CERVICAL SPINE, Nov 05, 2011 01:04:00 PM. CLINICAL HISTORY: Chronic neck and left arm pain. COMPARISON: Cervical spine MRI from [facility] on 02/14/2010. TECHNIQUE: T1 and T2 sagittal [...] branch denerva tion option SAPNA DUTTA MD [facility] documented in this encounter Plan [...] | 1955 Age: 56 Sex: M Acct: [id number] Loc: MRI Exam Date: | | | 11/05/2011 Status: REG REF Radiology No: Unit No: [id number] | | | EXAM# TYPE/EXAM RESULT CPT CODE [id number] MRI/CERVICAL SPINE W/O | | | CONTRAST [id number] EXAM: MRI CERVICAL SPINE, Nov 05, 2011 01:04:00 | | | PM. CLINICAL HISTORY: Chronic neck and left arm pain. | | | COMPARISON: Cervical spine MRI from [facility] on | | | 02/14/2010. TECHNIQUE: T1 [...]
--- OUTSIDE RECORDS SUMMARY | ~2019-02-13 | XMS | Encounter Summary ---
Demographics + + + | Address | [address] | | | [place] [address] | + + + | Home Phone [...] Author + + + | Author | [facility] | + + + | Organization | [facility] | + + + | Address | Unknown | + + + | Phone | Unavailable | + + + Support + + + + + | Name | Relationship | Address | Phone | + + + + + | Venice Will | ECON | [address] | | | | | [place] [address] | | + + + + + Care Team Providers + +------+ + | Care Calendering Supervisor Name | Role | Phone | [...] + | 10/16/ | Anesthesia | Cardiac Viscera Washer | Terry Garvin, | | | 2018 | Event | at [facility] [address] [facility] | [facility] [address] [facility] | | | | | [facility] | [facility] | | | | | [facility] | [place], [place] | | | | | [place], [place] | [address] | | | | | [address] | [phone] | | | | | [phone] | | | +--------+ + + + [...] | | (groin access for medical laboratory technician) | RN | | +--------+ [...]
--- OUTSIDE RECORDS SUMMARY | ~2019-02-13 | XMS | Encounter Summary ---
Demographics + + + | Address | [address] | | | [place] [address] | + + + | Home Phone | | + + + | Preferred Language | Unknown | + + + | Marital Status | | + + + | Taoism Affiliation | NRP | + + + | Race | White | + + + | Ethnic Group | Not or | + + + Author + + + | Author | [facility] | + + + | Organization | [facility] | + + + | Address | Unknown | + + + | Phone | Unavailable | + + + Support + + + + + | Name | Relationship | Address | Phone | + + + + + | Venice Mckeon | ECON | [address] | | | | | [place] [address] | | + + + + + Care Team Providers + +------+ + | Care Registration Clerk Name | Role | Phone | [...] | 2018 | Encounter | Services at [facility] | | | | | | [address] [facility] | | | | | | [facility] | | | | | | Mailcode: L340 | | | | | | [facility] | | | | | | [place], [place] | | | | | | [address] | | | | | | [phone] | | | +--------+ + + + [...] | + + + | Report ====== User Experience Developer: Rodríguez Fortune ([id number]), shubham | [facility] | | richy [employer] Order Clerk: shubham lockhart Fellow: shubham lockhart | RADIOLOGY | | Household Coordinator: shubham lockhart Viewer: shubham lockhart Report Date: | CARDIAC IMAGING | | Oct 2017, 09:22:25 PST Patient ------- Patient: RON MCKEON | | | Acc #: [id number] | | | Ethnicity: N Status: Final [...] | | | Image Quality: Good Scanner Engineering Secretary: IntheGlo Scanner | | | Model: Formarum Scanner Serial Number: [id number] Scanner Software | | | Platform: 5.3.15.3.1.0 Staff: Rodríguez Fortune Modality: MR | | | Indication Name: routine Protocol Name: CMR W Flows WO Contrast | | | Findings -------- Non-cardiac findings were reviewed by Dr. Curtis. | | | This exam was terminated prematurely and is lmiited to correspondence renew clerk images. | | | There are [...] - 10/16/2017 9:22 AM PST | | Report======User Experience Developer: Rodríguez Fortune ([id number]), shubham Rodriguezalyst: shubham | | Zackeryow: shubham Beckician: shubham Beckwithwer: shubham | | Judiort Date: 16 Oct 2017, 09:22:25 PSTPatient-------Patient: RON MCKEON | | JMedical Record Number: [id number] ID: [id number] #: [id number]: NStatus: | | Final ReportReport Number: [id number]: MaleBirthdate: 1955 (61 yrs)Study Date: 05 | | Oct 2017Study Description: CMR with Flows with ContrastReferring Physician: RAJIV | | HEITNERBlood Pressure: /Heart rate:Height (cm): 0Weight (kg): 89BMI (kg/m ): 0BSA | | (m ): 0 (Mosteller Formula)Image Quality: Phonitive - Touchalize Engineering Secretary: Blendin | | C[employer] Dx Model: Advantagene Serial Number: [id number] Software Platform: | | 5.3.15.3.1.0Staff: Rodríguez FortuneModality: MRIndication Name: routineProtocol Name: | | CMR W Flows WO ContrastFindings--------Non-cardiac findings were reviewed by | | Ever.This exam was terminated prematurely and is lmiited to correspondence renew clerk images.There are | | bilateral pleural [...] Formula) | |Image Quality: Good | |Scanner Engineering Secretary: IntheGlo | |Scanner Model: Formarum | |Scanner Serial Number: [id number] | |Scanner Software Platform: 5.3.15.3.1.0 | |Staff: Rodríguez Fortune | |Modality: MR | |Indication Name: routine | |Protocol Name: CMR W Flows WO Contrast | |Findings | |-------- | |Non-cardiac findings were reviewed by Dr. Curtis. | |This exam was terminated prematurely and is lmiited to correspondence renew clerk images. | |There are bilateral pleural [...]
--- OUTSIDE RECORDS SUMMARY | ~2019-02-13 | XMS | Clinical Summary ---
Demographics + + + | Address | [address] | | | [place] [address] | + + + | Home Phone [...] [place] | | | | | [address] | | + + + + + Care Team Providers + +------+ + | Care Ip Counsel Name | Role | Phone | + [...] | | Activ | | (VITAMIN D-3) [address] | a week. | | | | [...] | | nasal spray | nasal spray Dema 2 | | | | | | [...] e | | spray | aerosol spray Dema | | | | | | | [...] | 11/12/2017 | + + + | PHOTOGRAMMETRIC STEREO COMPILER-D (AICD) Medtronic 10/16/17 [facility]ner | 10/19/2017 | + + + + + | Overview: Formatting of this note might be different from the | | original. MODEL NAME MODEL# SERIAL# DATE IMPLANTED GENERATOR | | Medtronic [id number] 10/16/17 RV LEAD Medtronic [id number] | | [id number] 10/16/17 A LEAD Medtronic [id number] 10/16/17 | | Coronary Sinus LEAD Medtronic [id number] 10/16/17 | | Indication: ischemic cardiomyopathy with reduced EF 30-35% Last | | Assessment & Plan: Medtronic AICD Placed in 10/2017 at [facility]. | | A:-Patient ventricular paced 100% this morning. No arrhythmias on | | telemetry.P:-No acute therapy. Continue current therapy. | | | | Last Assessment & Plan: Medtronic AICD Placed in 10/2017 at [facility]. | | | |A: | |-Patient ventricular [...] + + + | Overview: S/P Medtronic PHOTOGRAMMETRIC STEREO COMPILER-D 10-16-17 Dr Darby, [facility] Scan [...] + + | Coronary artery disease involving eklutna coronary artery of | 04/06/2017 | | eklutna heart without angina pectoris | | + [...] + + + | Acute anterior wall DC | 04/03/2017 | + + + + [...] involving | | | | | | eklutna coronary | | | | | | artery of eklutna | | | | | | heart without angina | | | | | | pectoris (Primary | | | | | | Dx); Post PTCA | +--------+ + + + + | 12/07/ | Office | | Randy Figueroa, | Coronary artery | | 2018 | Visit | | MD | disease involving | | | | | | eklutna coronary | | | | | | artery of eklutna | | | | | | heart [...] | | | | | (Primary Dx); PHOTOGRAMMETRIC STEREO COMPILER-D | | | | | | (AICD) Medtronic | | | | | | 10/16/17 [facility] Wilner; | | | | | | Ischemic | | | | | | cardiomyopathy | +--------+ + + + + | 12/02/ | Office | | Randy Figueroa, | Coronary artery | | 2018 | Visit | | MD | disease involving | | | | | | eklutna coronary | | | | | | artery of eklutna | | | | | | heart [...] involving | | | | | | eklutna coronary | | | | | | artery of eklutna | | | | | | heart [...] involving | | | | | | eklutna coronary | | | | | | artery of eklutna | | | | | | heart [...] involving | | | | | | eklutna coronary | | | | | | artery of eklutna | | | | | | heart [...] | | | | | [address] [facility] | | | | | | [address] | | | | | | [address] | | | | | | | [...] | | | | | | [place] [address] | | | | | | [phone] | | | | | | | [...] Generi | Left: | TERUMO LORIN | [id number] | 12/05/ | [id number] | | [id number]: Qty: 1 | c | Groin | - TERU | [id number] | 2019 | / | | on 05/19/2018 by Thew, | | | | 20 | | /[id number] | | Khurram Isabel MD | | | | | | 371 | + +--------+--------+ +--------+--------+--------+ | Landscape Maintenance Internship-D MedtronicImplanted: | Implan | | MEDTRONIC - [...] N/A: | ISAACS | | 12/29/ | [id number] | | Eluting Coronary Stent System | | Mack[place] | DIAGNOSTICS | | 2019 | 0-18 / | | Implanted: Qty: 1 on | | ry | - DAINA | | | | | 03/15/2017 by Monse Ross, | | | | | | /[id number] | | MD | | | | | | 61 | + +--------+--------+ +--------+--------+--------+ | Xience Alpine Everolimus | Stent | N/A: | ISAACS | | 11/03/ | [id number] | | Eluting Coronary Stent System | | Mackay | DIAGNOSTICS | | 2019 | 0-23 / | | Implanted: Qty: 1 on | | ry | - DAINA | | | | | 03/15/2017 by Monse Ross, | | | | | | /[id number] | | MD | | | | | | 41 | + +--------+--------+ +--------+--------+--------+ | Kit Perclose Proglide 6fr - | | Right: | SHITAL | [id number] | | 84154- | | [id number]: Qty: 1 | | Groin | VASCULAR - | [id number] | | 03 / / | | on 05/19/2018 by Missael, | | | ABVA | 89 | | | | Khurram Isabel MD | | | | | | | + +--------+--------+ +--------+--------+--------+ | Kit Perclose Proglide 6fr - | | Right: | ISAACS | [id number] | | 22627- | | [id number]: Qty: 1 | | Groin | VASCULAR - | [id number] | | 03 / / | | [...] | e | 23:59 PDT | Interrogation PHOTOGRAMMETRIC STEREO COMPILER-D | procedure are in the | | [...] remote PDF scanned into | | | [facility] for remote interrogation results. Data [...] | [employer] | MODA | [id number] | | [phone] | | Medica | | MEDICAID HMO | HEALTH | | 018-Pr | 1 | | id | | | MDCD | | esent | | | | | | [place] | | | | | | + +--------+ +--------+ +---------+--------+ | [employer] ADMIN | VETERA | [id number] | 07/24/ | | | Indemn | | | NS | | 2016-P | | | ity | | | ADMIN | | resent | | | | | | [place] | | | | | | | | [place] | | | | | | + +--------+ +--------+ +---------+--------+ | [employer] ADMIN | VETERA | [id number] | 07/24/ | | | Indemn | [...] taiwo | | | 8 (Home) | [address] | + +--------+ +--------+ + + Advance Directives Patient has advance care planning documents, and code status on file. For more information, please contact:[facility] and [place] [address] + + + + + | Code [...]
--- OUTSIDE RECORDS SUMMARY | ~2019-02-13 | XMS | Encounter Summary ---
Demographics + + + | Address | [address] | | | [place] [address] | + + + | Home Phone [...] | | | | | [place] [address] | | + + + + + Care Team Providers + +------+ + | Care Crepe Maker Name | Role | Phone | [...] David | | | | | at [facility] | [facility] | | | | | [address] | [place] [address] | | | | | [facility] | | | | | | Mailcode: [id number] [address] | | | | | | [facility] | | | | | | Building [place], | | | | | | [place] [address] | | | | | | [phone] | | | +--------+ + + + [...]
--- OUTSIDE RECORDS SUMMARY | ~2019-02-13 | XMS | Encounter Summary ---
Demographics + + + | Address | [address] | | | [place] [address] | + + + | Home Phone [...] [place] | | | | | [address] | | + + + + + Care Team Providers + +------+ + | Care Slitting Machine Operator Name | Role | Phone [...] | | | involving | [address] | [place] | | | | | mcgrath | [place] | [place] | | | | | coronary | [address] | [address] | | | | | artery of | Phone: | Phone: | | | | | mcgrath heart | [phone] | [phone] | | | | | without | Fax: | Fax: | | | | | angina | [phone] | [phone] | | | | | pectoris | | | + + + + + + + Encounter Details +--------+---------+ + + + | Date | Type | Department | Care Team | Description | +--------+---------+ + + + | 12/09/ | Office | [facility] | Randy Figueroa, | Coronary artery | | 2019 | Visit | MED CTR CARDIAC | MD [address] | disease involving | | | | REHABILITATION [address] | [place], | m[place]grath coronary | | | | [address] [place] | [place] [address] | artery of mc[place] | | | | [place] [address] | [phone] | heart without angina | | | | [phone] | | pectoris (Primary | | | [...] might be different from the orig [facility] CARDIAC REHABILITATION [address] [facility] [address] Cardiac Rehab Discharge Date: 12/09/2018 Patient Information Patient Name: Bob Will Date of : 1955 Age: 63 y.o. Referring Provider: Randy Figueroa MD Encounter Diagnoses Code Name Primary? I25.10 Coronary artery disease involving mcgrath coronary artery of mcgr[place] heart without angina pectoris Yes Z98.61 Post [...] septic shock, and severe in-stent [place] nosis, [place] in Sep 2017, episodes of [place] and subsequent PTCA in Oct 2017, CHF, LVEF 35-40%, 3RD PRESSMAN -D placement in [facility] on 10/17/2017. He has recently increased his metoprolol dose and is on Entresto. He arrives in electric [employer] heelchair and has been inactive. Fall Ri [...] control. Also began walking with his around [employer] 3 days a week along with chasing [...] Healthy Dietary Education Date: 08/03/18 -Referral to Debubblizer: Date: -DVD: Healthy Eating For Life Date: [...] exercise until stable. Date: Range: -Referral to Autocad Draftsman Date: Education Points listed below- Date Completed: [...] Unforeseen circumstances makes the constant trip from [place] to not be a viable option a [...] [place] | | | | | | [address] | | | | | | | [...] | | | | | | [place] [address] | | | | | | [phone] | | | | | | | | +--------+ + + + + documented as of this encounter Visit Diagnoses + + | Diagnosis | + + | Coronary artery disease involving mcgrath coronary artery of mcgrath heart without | | angina pectoris - Primary | + + | Post PTCA Postsurgical percutaneous transluminal coronary angioplasty status | + + documented in this encounter
--- OUTSIDE RECORDS SUMMARY | ~2019-02-13 | XMS | Encounter Summary ---
Demographics + + + | Address | [address] | | | [place] [address] | + + + | Home Phone [...] [place] | | | | | [address] | | + + + + + Care Team Providers + +------+ + | Care Erection Shop Supervisor Name | Role | Phone | [...] | [address] | [address], [place] | (severe) (HCC) | | | | [place], [place] | 100 [place] | (Primary Dx); Anemia | | | | [address] | [address] | in chronic kidney | | | | [phone] | | disease, unspecified | | | [...] sent to: [facility] Everywhere 05/04/18 Binronically signed by [...] | | | | | | [address], [place] | | | | | | [address] [place] | | | | | | [address] | | | | | | | | +--------+ + + + + | 03/24/ | Procedure | Cardiology | | | | 2018 | visit | | | | +--------+ + + + + | 03/24/ | Office | Cardiology | Jenny, | | | 2018 | Visit | | ADARSH Santo [address] | | | | | | [place], | | | | | | [place] [address] | | | | | | [phone] | | | | | | | [...] | | | | (severe) ([facility]) | 01/27/2020 | + +--------+ + + | Parathyroid Hormone, Intact | Routin | Chronic kidney | Expected: | | | e | disease, stage IV | 03/01/2019, Expires: | | | | (severe) ([facility]) | 01/27/2020 | + +--------+ + + | Protein/Creatinine Ratio, Urine | Routin | Chronic kidney | Expected: | | | e | disease, stage IV | 03/01/2019, Expires: | | | | (severe) ([facility]) | 01/27/2020 | + +--------+ + + | Iron Profile | Routin | Chronic kidney | Expected: | | | e | disease, stage IV | 03/01/2019, Expires: | | | | (severe) ([facility]) | 01/27/2020 | | | | Anemia in chronic | | | | | kidney disease, | | | | | unspecified CKD | | | | | stage | | + +--------+ + + documented as of this encounter Visit Diagnoses + + | Diagnosis | + + | Chronic kidney disease, stage IV (severe) ([facility]) - Primary Chronic kidney disease, | | Stage IV (severe) | + + | Anemia in chronic kidney disease, unspecified CKD stage | + + documented in this encounter"
--- OUTSIDE RECORDS SUMMARY | ~2019-02-13 | XMS | Encounter Summary ---
Demographics + + + | Address | [address] | | | [place] [address] | + + + | Home Phone [...] | [place] | | | | | [address] | | + + + + + Care Team Providers + +------+ + | Care Chandelier Maker Name | Role | Phone | [...] | | | involving | [address] | [address] [place] | | | | | [place] | [place] | [place] | | | | | coronary | [address] | [address] | | | | | artery of | Phone: | Phone: | | | | | [place] heart | [phone] | [phone] | | | | | without | Fax: | Fax: | | | | | angina | [phone] | [phone] | | | | | pectoris | | | + + + + + + + Encounter Details +--------+---------+ + + + | Date | Type | Department | Care Team | Description | +--------+---------+ + + + | 11/30/ | Office | [facility] | Carolina Randy, | Coronary artery | | 2019 | Visit | MED CTR CARDIAC | MD [address] | disease involving | | | | REHABILITATION [address] | [place], | [place] coronary | | | | [address] [place] | [place] [address] | artery of [place] | | | | [place] [address] | [phone] | heart without angina | | | | [phone] | | pectoris (Primary | | | [...] note might be different from the orig [facility] CARDIAC REHABILITATION [address] [facility] [address] Cardiac Rehab Date: 11/30/2018 Patient Information Patient Name: Bob Will Date of : 1955 Age: 63 y.o. Encounter Diagnoses Code Name Primary? I25.10 Coronary artery disease involving [place] coronary artery of [place] heart without angina pectoris Yes Z98.61 Post [...] | 03/08/ | Office | Nephrology | [facility], | | | 2018 | Visit | | ADARSH [address] | | | | | | [address] [facility] | | | | | | 100 [place] | | | | | | [id number] | | | | | | | | +--------+ + + + + | 03/24/ | Procedure | Cardiology | | | | 2019 | visit | | | | +--------+ + + + + | 03/24/ | Office | Cardiology | Jenny, | | | 2018 | Visit | | ADARSH Santo [address] | | | | | | [place], | | | | | | [place] [address] | | | | | | [phone] | | | | | | | [...]
--- OUTSIDE RECORDS SUMMARY | ~2019-02-13 | XMS | Encounter Summary ---
Demographics + + + | Address | [address] | | | [place] [address] | + + + | Home Phone [...] [place] | | | | | [address] | | + + + + + Care Team Providers + +------+ + | Care Uc Architect Name | Role | Phone | [...] | Telephone | [facility] [place] | [place], | Medication Related | | 2018 | | CARDIOLOGY [address] | ADARSH Santo [address] | | | | | [place], | [place], | | | | | [place] [address] | [place] [address] | | | | | [phone] | [phone] | | | | | | | [...] | | | | | | [address], [place] | | | | | | [address] [place] | | | | | | [address] | | | | | | | [...] | | | | | | [place] [address] | | | | | | [phone] | | | | | | | [...] | starting 11/30/2018 | | | | quileute coronary | until 12/01/2019 | | | | artery of [place] | | | | | heart without angina | | | | | pectoris | | + +--------+ + + documented as of this encounter Visit Diagnoses + + | Diagnosis | + + | Coronary artery disease involving [place] coronary artery of [place] heart without | | angina pectoris - Primary | + + documented in this encounter"
--- OUTSIDE RECORDS SUMMARY | ~2019-02-13 | XMS | Encounter Summary ---
Demographics + + + | Address | [address] | | | [place] [address] | + + + | Home Phone [...] [place] | | | | | [address] | | + + + + + Care Team Providers + +------+ + | Care Mounted Police Name | Role | Phone | + [...] NEPHROLOGY [address] | MD [address] | | | | | [address] | [place] [address] [place] | | | | | [place], [place] | [place] [address] | | | | | [address] | [phone] | | | | | [phone] | | | +--------+ + + + [...] Nephrology | [facility], | | | 2019 | Visit | | ADARSH [address] | | | | | | [address] [place], [place] | | | | | | [address] [place] | | | | | | [address] | | | | | | | | +--------+ + + + + | 03/24/ | Procedure | Cardiology | | | | 2019 | visit | | | | +--------+ + + + + | 03/24/ | Office | Cardiology | Jenny, | | | 2018 | Visit | | ADARSH Santo [address] | | | | | | [place], | | | | | | [place] [address] | | | | | | [phone] | | | | | | | [...]
--- OUTSIDE RECORDS SUMMARY | ~2019-02-13 | XMS | Encounter Summary ---
Demographics + + + | Address | [address] | | | [place] [address] | + + + | Home Phone [...] | [place] | | | | | [address] | | + + + + + Care Team Providers + +------+ + | Care Bulk Sealer Operator Name | Role | Phone | [...] | | | involving | [address] | [place] | | | | | [place] | [place] | [place] | | | | | coronary | [address] | [address] | | | | | artery of | Phone: | Phone: | | | | | [place] heart | [phone] | [phone] | | | | | without | Fax: | Fax: | | | | | angina | [phone] | [phone] | | | | | pectoris | | | + + + + + + + Encounter Details +--------+---------+ + + + | Date | Type | Department | Care Team | Description | +--------+---------+ + + + | 12/02/ | Office | [facility] | Randy Figueroa, | Coronary artery | | 2019 | Visit | MED CTR CARDIAC | MD [address] | disease involving | | | | REHABILITATION [address] | [place], | [place] coronary | | | | [place] | [place] [address] | artery of [place] | | | | [place] [address] | [phone] | heart without angina | | | | [phone] | | pectoris (Primary | | | [...] note might be different from the orig [facility] CARDIAC REHABILITATION [address] [facility] [address] Cardiac Rehab Date: 12/02/2018 Patient Information Patient Name: Bob Will Date of : 1955 Age: 63 y.o. Encounter Diagnoses Code Name Primary? I25.10 Coronary artery disease involving [place] coronary artery of [place] heart without angina pectoris Yes Z98.61 [...] 03/08/ | Office | Nephrology | [facility], | | | 2018 | Visit | | ADARSH Wesley [address] | | | | | | [address] , [facility] | | | | | | 100 [place] | | | | | | [address] | | | | | | | | +--------+ + + + + | 03/24/ | Procedure | Cardiology | | | | 2018 | visit | | | | +--------+ + + + + | 03/24/ | Office | Cardiology | Jenny, | | | 2018 | Visit | | ADARSH Santo [address] | | | | | | [place], | | | | | | [place] [address] | | | | | | [phone] | | | | | | | | +--------+ + + + + documented as of this encounter Visit Diagnoses + + | Diagnosis | + + | Coronary artery disease involving [place] coronary artery of [place] heart without | | angina pectoris - Primary | + + | Post PTCA Postsurgical percutaneous transluminal coronary angioplasty status | + + documented in this encounter"
--- OUTSIDE RECORDS SUMMARY | ~2019-02-13 | XMS | Encounter Summary ---
Demographics + + + | Address | [address] | | | [place] [address] | + + + | Home Phone [...] [place] | | | | | [address] | | + + + + + Care Team Providers + +------+ + | Care Airframe And Power Plant Mechanic Name | Role | Phone | + +------+ + | Young Haque DO | PCP | | + +------+ + Encounter Details +--------+ + + + + | Date | Type | Department | Care Team | Description | +--------+ + + + + | 03/19/ | Abstract | [facility] [place] | Jenny, | | | 2018 | | CARDIOLOGY [address] | Hansa GEOLOGY PROFESSOR [address] | | | | | [place], | [place], | | | | | [place] [address] | [place] [address] | | | | | [phone] | | | | | | | [...] | | | | [address] , [facility] | | | | | | 100 [place] | | | | | | [address] | | | | | | | | +--------+ + + + + | 03/24/ | Procedure | Cardiology | | | | 2018 | visit | | | | +--------+ + + + + | 03/24/ | Office | Cardiology | Jenny, | | | 2018 | Visit | | ADARSH Santo [address] | | | | | | [place], | | | | | | [place] [address] | | | | | | [phone] | | | | | | | [...]
--- OUTSIDE RECORDS SUMMARY | ~2019-02-13 | XMS | Encounter Summary ---
Demographics + + + | Address | [address] | | | [place] [address] | + + + | Home Phone [...] | | | | | [place] [address] | | + + + + + Care Team Providers + +------+ + | Care Professor Of Radiology Name | Role | Phone | + +------+ + | Jamal Guerrero MD | PCP | | + +------+ + Encounter Details +--------+ + + + + | Date | Type | Department | Care Team | Description | +--------+ + + + + | 01/28/ | Document-Sc | UNKNOWN DEPARTMENT | Unknown . | | | 2011 | anned | [address] [facility] | | | | | | [facility] | | | | | | [place], [place] | | | | | | [address] | | | +--------+ + + + [...]
--- OUTSIDE RECORDS SUMMARY | ~2019-02-13 | XMS | Encounter Summary ---
Demographics + + + | Address | [address] | | | [place] [address] | + + + | Home Phone [...] + + + | Author | [facility] | + + + | Organization | [facility] | + + + | Address | Unknown | + + + | Phone | Unavailable | + + + Support + + + + + | Name | Relationship | Address | Phone | + + + + + | Venice Will | ECON | [address] | | | | | [place] [address] | | + + + + + Care Team Providers + +------+ + | Care Manager Risk Management Name | Role | Phone | [...] [place] | | | | | | [facility] | | | | | | [place], [place] | | | | | | [address] | | | +--------+ + + + [...]
--- OUTSIDE RECORDS SUMMARY | ~2019-02-13 | XMS | Encounter Summary ---
Demographics + + + | Address | [address] | | | [place] [address] | + + + | Home Phone [...] | [place] | | | | | [address] | | + + + + + Care Team Providers + +------+ + | Care Rental Car Ferry Driver Name | Role | Phone | [...] | | | involving | [address] | [place] | | | | | [place] | [place] | [place] | | | | | coronary | [address] | [address] | | | | | artery of | Phone: | Phone: | | | | | [place] heart | [phone] | [phone] | | | | | without | Fax: | Fax: | | | | | angina | [phone] | [phone] | | | | | pectoris | | | + + + + + + + Encounter Details +--------+---------+ + + + | Date | Type | Department | Care Team | Description | +--------+---------+ + + + | 11/25/ | Office | [facility] | Carolina Randy, | Coronary artery | | 2019 | Visit | MED CTR CARDIAC | MD [address] [place] | disease involving | | | | REHABILITATION [address] | [place], | [place] coronary | | | | [address] [place] | [place] [address] | artery of [place] | | | | [place] [address] | [phone] | heart without angina | | | | [phone] | | pectoris (Primary | | | [...] this encounter Progress Jonah Coker-Cheri Kendrick, SENIOR ANALYST - 11/25/2018 1000 PDTFormatting of this note might be diff erent from the original. [facility] CARDIAC REHABILITATION [address] [facility] [address] Cardiac Rehab Date: 11/25/2018 Patient Information Patient [...] | Office | Nephrology | [facility], | | | 2018 | Visit | | ADARSH Wesley [address] | | | | | | [address] , [facility] | | | | | | 100 [place] | | | | | | [id number] | | | | | | | | +--------+ + + + + | 03/24/ | Procedure | Cardiology | | | | 2018 | visit | | | | +--------+ + + + + | 03/24/ | Office | Cardiology | Jenny, | | | 2018 | Visit | | ADARSH Santo [address] | | | | | | [place], | | | | | | [place] [address] | | | | | | [phone] | | | | | | | [...]
--- OUTSIDE RECORDS SUMMARY | ~2019-02-13 | XMS | Encounter Summary ---
Demographics + + + | Address | [address] | | | [place] [address] | + + + | Home Phone [...] | Author | [facility] | | | and [place] | + + + | Organization | [facility] | | | and [place] | + + + | Address | Unknown | + + + | Phone | Unavailable | + + + Support + + + + + | Name | Relationship | Address | Phone | + + + + + | Venice Will | ECON | [place] | | | | | [address] | | + + + + + Care Team Providers + +------+ + | Care Sleeve Sewer Name | Role | Phone | [...] | | | involving | [address] | [place] | | | | | tribe | [place] | [place] | | | | | coronary | [address] | [address] | | | | | artery of | Phone: | Phone: | | | | | tribe heart | [phone] | [phone] | | | | | without | Fax: | Fax: | | | | | angina | [phone] | [phone] | | | | | pectoris | | | + + + + + + + Encounter Details +--------+---------+ + + + | Date | Type | Department | Care Team | Description | +--------+---------+ + + + | 12/09/ | Office | [facility] | Randy Figueroa, | Coronary artery | | 2019 | Visit | MED CTR CARDIAC | MD [address] | disease involving | | | | REHABILITATION [address] | 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 He has recently increased his metoprolol dose and is on Entresto. He arrives in electric [employer] [facility] heelchair and has been inactive. Fall Ri [...] control. Also began walking with his around [employer] 3 days a week along with chasing [...] Healthy Dietary Education Date: 08/03/18 -Referral to School Examiner: Date: -DVD: Healthy Eating For Life Date: [...] exercise until stable. Date: Range: -Referral to Knife Setter Assembler Date: Education Points listed below- Date [...] Unforeseen circumstances makes the constant trip from [place] to not be a viable option a [...] [place] | | | | | | [address] | | | | | | | [...] | | | | | | [place] [address] | | | | | | [phone] | | | | | | | [...]
--- OUTSIDE RECORDS SUMMARY | ~2019-02-13 | XMS | Encounter Summary ---
Demographics + + + | Address | [address] | | | [place] [address] | + + + | Home Phone [...] | | | | | [place] [address] | | + + + + + Care Team Providers + +------+ + | Care Structured Cabling Technician Name | Role | Phone | [...] David | | | | | at [facility] | [facility] | | | | | [address] | [place] [address] | | | | | [facility] | | | | | | Mailcode: [id number] David | | | | | | [facility] | | | | | | Building [place], | | | | | | [place] [address] | | | | | | [phone] | | | +--------+ + + + [...]
--- OUTSIDE RECORDS SUMMARY | ~2019-02-13 | XMS | Encounter Summary ---
Demographics + + + | Address | [address] | | | [place] [address] | + + + | Home Phone [...] | | | | | [place] [address] | | + + + + + [...] Services at [facility] | [address] [place], [place] | Exam | | | | [address] [facility] | [address] | | | | | [facility] | | | | | | Mailcode: [id number] | | | | | | [facility] | | | | | | [place], [place] | | | | | | [address] | | | | | | [phone] | | | +--------+ + + + [...]
--- OUTSIDE RECORDS SUMMARY | ~2019-02-13 | XMS | Encounter Summary ---
Demographics + + + | Address | [address] | | | [place] [address] | + + + | Home Phone [...] [place] | | | | | [address] | | + + + + + Care Team Providers + +------+ + | Care Senior Oracle Adf Developer Name | Role | Phone | [...] + + | 11/18/ | Telephone | [facility] | Jenny, | Blood Pressure | | 2019 | | CARDIOLOGY [address] | [place], SEC[employer]ITY [employer]UTIONS ARCHITECT [address] | | | | | [place], | [place], | | | | | [place] [address] | [place] [address] | | | | | [phone] | [phone] | | | | | | | [...] [place] | | | | | | [address] | | | | | | | [...] | | | | | | [place] [address] | | | | | | [phone] | | | | | | | | +--------+ + + + + documented as of this encounter Visit Diagnoses Not on filedocumented in this encounter"
--- OUTSIDE RECORDS SUMMARY | ~2019-02-13 | XMS | Encounter Summary ---
Demographics + + + | Address | [address] | | | [place] [address] | + + + | Home Phone [...] | | | | | [place] [address] | | + + + + + Care Team Providers + +------+ + | Care Messenger Copy Name | Role | Phone | + [...] | 2018 | | Services at [facility] | [place], [place] | Exam | | | | [address] [facility] | [address] | | | | | [facility] | | | | | | Mailcode: [id number] | | | | | | [facility] | | | | | | [place], [place] | | | | | | [address] | | | | | | [phone] | | | +--------+ + + + [...]
--- OUTSIDE RECORDS SUMMARY | ~2019-02-13 | XMS | Encounter Summary ---
Demographics + + + | Address | [address] | | | [place] [address] | + + + | Home Phone [...] | | | | | [place] [address] | | + + + + + Care Team Providers + +------+ + | Care Printing Engineer Name | Role | Phone | + +------+ + | Chato Matson MD | PCP | | + +------+ + Encounter Details +--------+ + + + + | Date | Type | Department | Care Team | Description | +--------+ + + + + | 03/31/ | Document-Sc | Health Information | Other, Faculty | | | 2017 | anned | Services [address] | [phone] | | | | | [address] | | | | | | Road Mailcode: | | | | | | [address] [place] [address] | | | | | | [facility] | | | | | | [place], [place] | | | | | | [address] | | | | | | [phone] | | | +--------+ + + + [...]
--- OUTSIDE RECORDS SUMMARY | ~2019-02-13 | XMS | Encounter Summary ---
Demographics + + + | Address | [address] | | | [place] [address] | + + + | Home Phone [...] | | | | | [place] [address] | | + + + + + Care Team Providers + +------+ + | Care Seismograph Chief Name | Role | Phone | [...] | | 2011 | | Center at [facility] [address] | [address] | | | | | [address] | [place], [place] | | | | | Mailcode: [id number] | [address] | | | | | [facility] | [phone] | | | | | and Healing, [address]th | | | | | | Floor [place], [place] | | | | | | [address] | | | | | | [phone] | | | +--------+ + + + [...]
--- OUTSIDE RECORDS SUMMARY | ~2019-02-13 | XMS | Encounter Summary ---
Demographics + + + | Address | [address] | | | [place] [address] | + + + | Home Phone [...] [place] | | | | | [address] | | + + + + + Care Team Providers + +------+ + | Care Load Mixer Name | Role | Phone | [...] [address] | | | | [place], | [place], | | | | | [place] [address] | [place] [address] | | | | | [phone] | [phone] | | | | | | | [...] [place] | | | | | | [address] | | | | | | | [...] | | | | | | [place] [address] | | | | | | [phone] | | | | | | | | +--------+ + + + + documented as of this encounter Visit Diagnoses Not on filedocumented in this encounter"
--- OUTSIDE RECORDS SUMMARY | ~2019-02-13 | XMS | Encounter Summary ---
Demographics + + + | Address | [address] | | | [place] [address] | + + + | Home Phone [...] [place] | | | | | [address] | | + + + + + Care Team Providers + +------+ + | Care Chief Design Engineer Name | Role | Phone [...] | 12/06/ | Refill | [facility] | Jenny, | Medication Refill | | 2018 | | [facility]ARDIOLOG[facility] [address] | [address] [address] | | | | | [place], | [place], | | | | | [place] [address] | [place] [address] | | | | | [phone] | [phone] | | | | | | | [...] [place] | | | | | | [address] | | | | | | | [...] | | | | | | [place] [address] | | | | | | [phone] | | | | | | | | +--------+ + + + + documented as of this encounter Visit Diagnoses Not on filedocumented in this encounter"
--- OUTSIDE RECORDS SUMMARY | ~2019-02-13 | XMS | Clinical Summary ---
Demographics + + + | Address | [address] [place] [address] [address] | | | [place] [address] | + + + | Home Phone | | + + + | Preferred Language | Unknown | + + + | Marital Status | | + + + | Mu-Ism Affiliation | Unknown | + + + | Race | Unknown | + + + | Ethnic Group | Unknown | + + + Author + + + | Author | [employer] | + + + | Organization | [facility] [place] [employer] | + + + | Address | Unknown | + + + | Phone | Unavailable | + + + Support + + +---------+ + | Name | Relationship | Address | Phone | + + +---------+ + | Venice Mckeon | ECON | Unknown | | + + +---------+ + Care Team Providers + +------+ + | Care Desktop Architect Name | Role | Phone | [...] + + | Father | | | [place] | | | | (Age | | [...] +------+-------+ + | MEDICAID | SAIMA | [id number] | | | [address] | | | N | | | | [place], [place] | | | [place] | | | | [address] | | | REQUISITION APPROVER | | | | | + +--------+ [...] | Self [birth year] | Home: | [address] | | | al/Fam | | [phone] [address] [place], | | | [place] | | | [phone] | [place] [address] | + +--------+ +--------+ + +
--- OUTSIDE RECORDS SUMMARY | ~2019-02-13 | XMS | Encounter Summary ---
Demographics + + + | Address | [address] | | | [place] [address] | + + + | Home Phone [...] | | | | | [place] [address] | | + + + + + Care Team Providers + +------+ + | Care Paint Roller Covermaker Name | Role | Phone | + [...] | DECANNULATION | | 2017 | | [facility] | [address] | | | | | Admitting Desk | Tabitha Alicea FELT, | | | | | Located on the | [place] [address] | | | | | floor [address] [facility] | [phone] | | | | | [address] | | | | | | [place], [place] | | | | | | [address] | | | +--------+---------+ + + + [...] PM PDT CLINICAL HOSPITALIST DISCHARGE SUMMARY [facility] Discharging Provider: Aria Rojas MD [...] follow up ludmila miller with a local campus director in [place]. #Acute cardiogenic shock in the setting ofSTEMI [...] 44 to 32 during first day at [facility] , with addition decline to 24 [...] (noted on o [facility] records). Patient on Yaphank 10/325 q8 as outpatient. Was receiving scheduled [...] then take 7.5 mg (one and one-h fci tablets) daily starting 04/03/2017 Indications: JAVON thrombus, [...] Number [facility] Yes [address] [place] [address] [phone] Medina Roger RN 04/02/2017 11:31 Medina Roger RN, 04/02/2017 11:28 AM: Spoke with Latricia, 7 day auth # [id number] has been provided. Contacted Tanisha at facility , arranging anticipated medicaid transport by stretcher at 2 pm today. Spoke with patient and souse concerning dc; they are both in agreement. Medina Roger RN, 04/02/2017 9:20 AM: Contacted Latricia Landry [phone] referencing auth# for SNF placement. Medina Roger RN, 04/01/2017 11:42 AM: Spoke with Malathi [phone], at facility admissions. Patient is accepted to facility. Prov ided information for information croze cutter helper with [facility] Fed Latricia Landry [phone], Tanisha moncada pursue auth and get back to me. F&MS working with patient and family to add Medicaid ser vices to benefits. When added patient will have travel benefit. CM contacted Shahab Holman re [employer] training. Tamia Van, RN, 03/30/2017 1:21 PM: Received VM from Emily Terrell CM with [facility] to send referral to this location . Referral made, awaiting response. Follow Up: Schedule the following appointment(s) when you get home Follow up with [facility] . Specialties: Longterm Facility, Intermediate Care Facility Contact information [address] [place] [id number] Follow up with LAUREN CHESTER MD. Go on 04/07/2017. Specialty: Cardiology Why: at 8:30 AM to establish Cardiology follow up Contact information [facility] [address] [address] Aria Rojas MD Division of Hospital Medicine [facility] and Science Lena I spent 60 minutes on discharge activities [...] and chronic pain who was transferred to [facility] on 03/15 s/p STEMI with cardiogeni [...] will need [facility] Vest follow up with campus director in [place] on discharge - appr [facility] assistance with coordinating. -Will f/u further [...] hematoma, but possibly some candidal infection/intertrigo. On Yaphank 10 Q8H as an outp atient. -Continue [...] 44 to 32 during first day at [facility], with addition decline to 24 th [...] Aria Rojas MD Division of Hospital Medicine [facility] Pager [phone] I spent 36 minutes on the patient [...] and chronic pain who was transferred to [facility] on 03/15 s/p STEMI with cardiogeni [...] will need Life Vest follow up with campus director in [place] on discharge - appr [facility] assistance with coordinating. Hyperkalemia Resolved with [...] hematoma, but possibly some candidal infection/interrigo. On Yaphank Q8H as an outpa tient. -Continue nystatin [...] discharge. -CM looking for skilled placement in [place] near patient's home; appreciate assistance At risk for malnutrition Very little PO intake but reportedly improving. Previously had dobhoff feeding tube in the CVICU.Nutrition assistance appreciated. -Calorie count ongoing -Encouraging PO intake Normocytic anemia Hct dropped abruptly from 44 to 32 during first day at [facility], with addition decline to 24 th [...] Aria Rojas MD Division of Hospital Medicine [facility] Lena Pager [phone] I spent 36 minutes on the patient encounter today, >50% in counseling of the patient's on the above plan of care and in coordination of care on the arizmendi with nursing and [facility]. Ariana Ivy DO - 03/30/2017 5:49 PM PDT CLINICAL HOSPITALIST SERVICE PROGRESS NOTE PATIENT'S NAME/MRN: Ron Mckeon/[id number] HOSPITAL DAY: #15 24-HOUR EVENTS & SUBJECTIVE: -patient complained of typical anginal chest pain and had STEMI code last night, anterior S T elevation on serial EKGs, given 325mg ASA, started on heparin drip (had been turned off fo r JAVON thrombus yesterday afternoon with warfarin therapeutic), patient went to the laboratory geneticist -on angiography, interventionalists noted "patent stent traversing [...] daily - Patient will follow up with campus director in [place] on discharge; appreciate cardiolo gy assistance with [...] stenosis (noted on o [facility] records, on Yaphank q8 as outpatient) Improved today -continue oxycodone [...] discharge. -CM looking for skilled placement in [place] near patient's home; appreciate assistance #Risk for malnutrition Very little PO intake, improving today. Previously had dobhoff feeding tube in the CVICU.Nu trition assistance appreciated. -Calorie count ongoing -Encouraging PO intake #Anemia, normocytic Pt noted to have anemia on H&P. Hct dropped abruptly from 44 to 32 during first day at [facility] , with addition decline to 24 [...] of a little overdiuresis 2 days ago. #AYILN Improving. Cr elevated on admit to peak [...] Barriers for DC: delivery/approval of lifevest, [facility] bed Ariana Bose DO Labor Service Representative3rd grade teacher Clinical Hospitalist and Medicine Teaching Service Division of Hospital Medicine [facility] Pager [phone] [facility] DEPARTMENT: Hosp- [phone] Place of Service: - Date of Service: 03/26/2017 CSN: [id number] Modifiers:GC Resident Involved: Yes Suggested CPT: 25707 Subsequent Visit Detailed/High complexity 35 min Cristi [...] given continued elevated Tn, patient's significant recent MS, we activated the laboratory geneticist. Patient received 325 mg ASA at bedside and was briefly on heparin which has since been disc ontinued. Per cardiology will continue daily 81 mg ASA, plavix and warfarin. Continue to t rend troponins as well. I spent 30 minutes with this patient with >50% of the time evaluating patient at the [facility] e on numerous occasions, evaluating studies and coordinating care w/ cardiology.Electronical ly signed by Ivette Chaudhry MD at 03/30/2017 6:24 AM Gerson Oseguera MD - 03/30/2017 4:31 AM PDTCardiology Preliminary Procedure Note (Full report to follow) Primary Care Provider: Jamal Guerrero MD Referring Provider: No Referring Provider Per Patient Hims Manager Staff: Katarina Ngo M.D. Procedure(s): Coronary Angiography [...] Complications: None Hemostasis: Manual compression in laboratory geneticist. Site: [facility] Recommendations: Patient Status: Inpatient Usual post cath care. Ariana Ivy D O - 03/29/2017 9:30 AM PDT CLINICAL HOSPITALIST SERVICE PROGRESS NOTE PATIENT'S NAME/MRN: Ron Mckeon/[id number] HOSPITAL DAY: #14 24-HOUR EVENTS & SUBJECTIVE: [...] stenosis (noted on o [facility] records, on Yaphank 10/ q8 as outpatient) -continue oxycodone 10mg [...] 44 to 32 during first day at [facility] , with addition decline to 24 [...] arm, midline left arm Ariana Bose DO Labor Service Representative3rd grade teacher Clinical Hospitalist and Medicine Teaching Service Division of Hospital Medicine [facility] Pager [phone] [facility] DEPARTMENT: Hosp- [phone] Place of Service: - Date of Service: 03/26/2017 CSN: [id number] Modifiers:GC Resident Involved: Yes Suggested CPT: 42430 Subsequent Visit Detailed/High complexity 35 min Ariana Ivy DO - 03/28/2017 8: 06 AM PDT CLINICAL HOSPITALIST SERVICE PROGRESS NOTE PATIENT'S NAME/MRN: Ron Mckeon/[id number] HOSPITAL DAY: #13 24-HOUR EVENTS & SUBJECTIVE: [...] stenosis (noted on o [facility] records, on Yaphank 10 q8 as outpatient) Improving L groin [...] 44 to 32 during first day at [facility] , with addition decline to 24 [...] arm, midline left arm Ariana Bose DO Labor Service Representative3rd grade teacher Clinical Hospitalist and Medicine Teaching Service Division of Hospital Medicine [facility] Pager [phone] [facility] DEPARTMENT: Hosp- [phone] Place of Service: - Date of Service: 03/26/2017 CSN: [id number] Modifiers:GC Resident Involved: Yes Suggested CPT: 75961 Subsequent Visit Detailed/High complexity 35 min Ariana [...] tablet 1,000 Units, 1,000 Units, oral, DAILY, Amlo Alvarado MD, 1,000 Units at 03/26/17 0930 [...] tablet 10 mg, 10 mg, oral, QPM, Trery Ochoa MD, 10 mg at 03/26/17 214 [...] 44 to 32 during first day at [facility] , with addition decline to 24 [...] arm, midline left arm Ariana Bose DO Labor Service Representative3rd grade teacher Clinical Hospitalist and Medicine Teaching Service Division of Hospital Medicine [facility] Pager [phone] [facility] DEPARTMENT: Hosp- [phone] Place of Service: - Date of Service: 03/26/2017 CSN: [id number] Modifiers:GC Resident Involved: Yes Suggested CPT: 03668 Subsequent Visit Detailed/High complexity 35 min Chapis [...] 44 to 32 during first day at [facility] , with addition decline to 24 [...] arm, midline left arm Ariana Bose DO Labor Service Representative3rd grade teacher Clinical Hospitalist and Medicine Teaching Service Division of Hospital Medicine [facility] Pager [phone] [facility] DEPARTMENT: Hosp- [phone] Place of Service: - Date of Service: 03/26/2017 CSN: [id number] Modifiers:GC Resident Involved: Yes Suggested CPT: 79529 Subsequent Visit Detailed/High complexity 35 min Wan Cano MD - 03/25/2017 3:07 PM PDT . Cardiovascular Intensive Care Unit Attending Progress Note CVICU D2 Assigned #[id number] ICU Admission Reason Most Recent Value ICU [...] ANY X2 placed in outs surinder laboratory geneticist along with IABP. Arrived in cardiogenic shock, [...] Pager Mellisa Haji MD Admitting Provider Cardiology 83128 Zelalem Del Toro MD ICU PM Attending Anesthesiology 05317 Code Status Code Status Full Code The Advanced Care Note for this patient can be found under the notes tab in chart review. Quality section Reardon necessity reviewed: Hourly/Accurate measurement of urinary output for clinical manage ment of critically ill patients Wan Deleon MD, JOHN, ERVIN Cardiovascular Intensive Care Unit [address] [address] I have spent a total of 38 [...] xceptions/additions as noted. Date of Service: 03/25/2017 [facility] DEPARTMENT: ANE ICU CARDIAC Place of Service:- Inpatient CSN: [id number] Suggested Modifier: GC - Resident Involved Suggested CPT: TO ATOMIC FUEL ASSEMBLER Jose Ramon Khan MD - 03/24/2017 10:54 AM PDT . Cardiovascular Intensive Care Unit Team Progress Note CVICU D2 Assigned #[id number] ICU Admission Reason Most Recent Value ICU [...] ANY X2 placed in outs surinder laboratory geneticist along with IABP. Arrived in cardiogenic shock, [...] Plan Patient went into VFib during laboratory geneticist procedure at [facility]. Was shocked 17 times Targeted temperature [...] Patient was difficult intubation at outside laboratory geneticist. -secretions improving, cough strong -s/p 7 days [...] Pager Mellisa Haji MD Admitting Provider Cardiology 85827 Zelalem Del Toro MD ICU PM Attending Anesthesiology 49357 The Advanced Care Note for this patient [...] Ramon Alvarado MD Author:Jose Ramon Alvarado MD [address] [id number] signed by Jose Ramon Alvarado MD at 03/24/2017 11:00 AM Wan Cano MD - 03/24/2017 9:47 AM PDTFormatting of this note might be diff erent from the original. Cardiovascular Intensive Care Unit Attending Progress Note CVICU D2 Assigned #[id number] ICU Admission Reason Most Recent Value ICU [...] ANY X2 placed in outs surinder laboratory geneticist along with IABP. Arrived in cardiogenic shock, [...] Pager Mellisa Haji MD Admitting Provider Cardiology 11837 Zelalem Del Toro MD ICU PM Attending Anesthesiology 62467 Code Status Code Status Full Code The Advanced Care Note for this patient can be found under the notes tab in chart review. Quality section Reardon necessity reviewed: Hourly/Accurate measurement of urinary output for clinical manage ment of critically ill patients Wan Deleon MD, JOHN, ERVIN Cardiovascular Intensive Care Unit [address] [address] I have spent a total of 42 [...] xceptions/additions as noted. Date of Service: 03/24/2017 [facility] DEPARTMENT: ANE ICU CARDIAC Place of Service:- Inpatient CSN: [id number] Suggested Modifier: GC - Resident Involved Suggested CPT: TO ATOMIC FUEL ASSEMBLER Author:Wan Deleon Md, MD [address] [id number] signed by Wan Deleon MD at 03/24/2017 9:49 AM PDTToTamia lieberman PA-C - 03/23/2017 11:54 PM PDTFormatting of this note might be diff erent from the original. Cardiovascular Intensive Care Unit Clinical Update Note Team: D2 Team Pager: [phone] Attending: Katey Pt Name: Ron Mckeon ID: [...] ANY X2 placed in outs surinder laboratory geneticist along with IABP. Arrived in cardiogenic shock, [...] Unit Team Progress Note CVICU D2 Assigned #[id number] ICU Admission Reason Most Recent Value ICU [...] ANY X2 placed in outs surinder laboratory geneticist along with IABP. Arrived in cardiogenic shock, [...] Plan Patient went into VFib during laboratory geneticist procedure at [facility]. Was shocked 17 times Targeted temperature [...] Patient was difficult intubation at outside laboratory geneticist. -fevering nightly, cultures negative, WBC stable -secretions [...] Pager Mellisa Haji MD Admitting Provider Cardiology 11507 The Advanced Care Note for this patient [...] Ramon Alvarado MD Author:Jose Ramon Alvarado MD [address] [address] [place] [address]Ogxbchelybttri signed by Jose Ramon Alvarado MD at 03/23/2017 11:41 AM Wan Cano MD - 03/23/2017 9:51 AM PDTFormatting of this note might be diff erent from the original. Cardiovascular Intensive Care Unit Attending Progress Note CVICU D2 Assigned #[id number] ICU Admission Reason Most Recent Value ICU [...] ANY X2 placed in outs surinder laboratory geneticist along with IABP. Arrived in cardiogenic shock, [...] Pager Mellisa Haji MD Admitting Provider Cardiology 93913 Code Status Code Status Full Code The Advanced Care Note for this patient can be found under the notes tab in chart review. Quality section A-Line necessity reviewed: Plan to DC today Reardon necessity reviewed: Hourly/Accurate measurement of urinary output for clinical manage ment of critically ill patients Currently at risk for: delirium, stroke, MS, arrythmia, tamponade, PE, respiratory failure, ARDS, aspiration, AYLIN / ARF, coagulopathy, DVT, stress ulcers, sepsis, BONIFACIO, electrolyte per turbations, malnutrition, deconditioning and decubiti. Wan Deleon MD, JOHN, ERVIN Cardiovascular Intensive Care Unit [address] [address] I have spent a total of 44 [...] xceptions/additions as noted. Date of Service: 03/23/2017 [facility] DEPARTMENT: [facility] ICU CARDIAC Place of Service:- Inpatient CSN: [id number] Suggested Modifier: GC - Resident Involved Suggested CPT: TO ATOMIC FUEL ASSEMBLER Tamia De La Paz PA-C - 03/22/2017 7:58 PM PDT . Cardiovascular Intensive Care Unit Clinical Update Note Team: D2 Team Pager: [phone] Attending: Abdulaziz Merrill Name: Ron Mckeon ID: [...] Unit Attending Progress Note CVICU D2 Assigned #[id number] ICU Admission Reason Most Recent Value ICU [...] long tobacco abuse history, presenting with acute MS and STEMI, resu ltant cardiogenic shock refractory [...] Pager Mellisa Haji MD Admitting Provider Cardiology 56878 Code Status Code Status Full Code Quality section A-Line necessity reviewed: Xsid-pi-wtkw blood pressure monitoring Reardon necessity reviewed: Hourly/Accurate [...] Date of Service: 03/22/2017 Author:Anurag Ashby MD [address] [address]Nqljiidetxbwfw signed by Anurag Ashby MD at 03/22/2017 11:07 AM P Macho Sellers MD - 03/22/2017 11:00 AM PDT Cardiovascular Intensive Care Unit Team Progress Note CVICU D2 Assigned #[id number] ICU Admission Reason Most Recent Value ICU [...] Plan Patient went into VFib during laboratory geneticist procedure at [facility]. Was shocked 17 times Targeted temperature [...] Patient was difficult intubation at outside laboratory geneticist. -vanc zosyn stopped 03/17 -fever 38.3 last [...] Pager Mellisa Haji MD Admitting Provider Cardiology 32560 This patient does not have an Advanced Care Note for this Admission. Please use the Goal of care section of your ICU navigator to document the advanced care discussion. Quality section A-Line necessity reviewed: Tlcs-th-pkvx blood pressure monitoring Reardon necessity reviewed: Hourly/Accurate measurement of urinary output for clinical manage ment of critically ill patients FAST HUG Feeding: Tube Feeds: Replete @ 55 mL/hr Analgesia: APAP, hydromorphone PRN Sedation: N/A Thromboprophylaxis: Heparin infusion Head of Bed: Head of Bed >30 degrees Ulcer Prophylaxis: Famotidine Glycemic Control: insulin infusion Created by Macho Gaytan MD Author:Macho Gaytan MD [address] [address]Bfumsbueawkdzf signed by Macho Gaytan MD at 03/23/2017 12:35 PM PDTT Tamia leon PA-C - 03/21/2017 7:02 PM PDTFormatting of this note might be different f rom the original. Cardiovascular Intensive Care Unit Clinical Update Note Team: D2 Team Pager: [phone] Attending: Abdulaziz Merrill Name: Ron Mckeon ID: [...] Opens eyes, nods head. Follows commands for commercial account manager and Plan: Hospital Problems Priority POA Head/Neck [...] Unit Team Progress Note CVICU D2 Assigned #[id number] ICU Admission Reason Most Recent Value ICU [...] Plan Patient went into VFib during laboratory geneticist procedure at [facility]. Was shocked 17 times Targeted temperature [...] Patient was difficult intubation at outside laboratory geneticist. -vanc zosyn stopped 03/17 -fever 38.3 last [...] Pager Mellisa Haji MD Admitting Provider Cardiology 60154 This patient does not have an Advanced Care Note for this Admission. Please use the Goal of care section of your ICU navigator to document the advanced care discussion. Quality section A-Line necessity reviewed: Quzr-ly-nsmt blood pressure monitoring CVC necessity reviewed: Hemodynamic [...] by Macho Gaytan MD Author:Macho Gaytan MD [address] [address]Nrxzrerildxqgw signed by Macho Gaytan MD at 03/21/2017 1:43 PM PDTM Anurag coates MD - 03/21/2017 12:22 PM PDT Cardiovascular Intensive Care Unit Attending Progress Note CVICU D2 Assigned #[id number] ICU Admission Reason Most Recent Value ICU [...] long tobacco abuse history, presenting with acute MS and STEMI, resu ltant cardiogenic shock refractory [...] Pager Mellisa Haji MD Admitting Provider Cardiology 86873 Code Status Code Status Full Code Quality section A-Line necessity reviewed: Hayf-mi-uaty blood pressure monitoring CVC necessity reviewed: Plan [...] Date of Service: 03/21/2017 Author:Anurag Ashby MD [address] [address] [place] [address]Odjqutjtouzkqw signed by Anurag Ashby MD at 03/21/2017 12:22 PM P Jose Ramon Coburn MD - 03/20/2017 12:36 PM PDTFormatting of this note might be differen t from the original. Cardiovascular Intensive Care Unit Team Progress Note CVICU D2 Assigned #[id number] ICU Admission Reason Most Recent Value ICU [...] left main coronary artery. Now s/p S/p AYN X2. IABP place. Arrived in cardiogenic shock [...] Plan Patient went into VFib during laboratory geneticist procedure at [facility]. Was shocked 17 times Targeted temperature [...] Patient was difficult intubation at outside laboratory geneticist. -vanc zosyn stopped 03/17 -fever 38.3 last [...] Pager Mellisa Haji MD Admitting Provider Cardiology 69290 Quality section A-Line necessity reviewed: Gbtr-xd-ryma blood pressure monitoring CVC necessity reviewed: Hemodynamic [...] Ramon Alvarado MD Author:Jose Ramon Alvarado MD [address] [address]Qxvxuivqxufwgy signed by Jose Ramon Alvarado MD at 03/20/2017 12:49 PM PDTMoulton, Anurag Soni MD - 03/20/2017 12:18 PM PDTFormatting of this note might be differen t from the original. Cardiovascular Intensive Care Unit Attending Progress Note CVICU D2 Assigned #[id number] ICU Admission Reason Most Recent Value ICU [...] long tobacco abuse history, presenting with acute MS and STEMI, resu ltant cardiogenic shock refractory [...] Pager Mellisa Haji MD Admitting Provider Cardiology 00525 Code Status Code Status Full Code Quality section A-Line necessity reviewed: Djkx-az-sdli blood pressure monitoring CVC necessity reviewed: Medication [...] Date of Service: 03/20/2017 Author:Anurag Ashby MD [address] [address]Fjdxehkyqtmicc signed by Anurag Ashby MD at 03/20/2017 12:18 PM P Raul Conte MD - 03/19/2017 11:01 PM PDTFormatting of this note might be different fro m the original. Cardiovascular Intensive Care Unit Attending Progress Note CVICU D2 Assigned #[id number] ICU Admission Reason Most Recent Value ICU [...] long tobacco abuse history, presenting with acute MS and STEMI, resu ltant cardiogenic shock refractory [...] Pager Mellisa Haji MD Admitting Provider Cardiology 51122 Code Status Code Status Full Code Quality section A-Line necessity reviewed: Tytv-up-rjre blood pressure monitoring CVC necessity reviewed: Hemodynamic [...] Date of Service: 03/19/2017 Author:Raul Wei MD [address] [address] [place] [address]Nppzqbclcistlv signed by Raul Wei MD at 03/19/2017 11:01 PM PD TMillerJose Ramon MD - 03/19/2017 4:49 PM PDT Cardiovascular Intensive Care Unit Team Progress Note CVICU D2 Assigned #[id number] ICU Admission Reason Most Recent Value ICU [...] Plan Patient went into VFib during laboratory geneticist procedure at [facility]. Was shocked 17 times Targeted temperature [...] Patient was difficult intubation at outside laboratory geneticist. -vanc zosyn stopped 03/17 -fever 38.3 03/17 [...] Pager Mellisa Haji MD Admitting Provider Cardiology 64382 Quality section A-Line necessity reviewed: Zoyd-ru-kfsp blood pressure monitoring CVC necessity reviewed: Hemodynamic monitoring Reardon necessity reviewed: Hourly/Accurate measurement of urinary output for clinical manage ment of critically ill patients FAST HUG Feeding: TFs Analgesia: multimodal Sedation: propofol Thromboprophylaxis: Heparin infusion Head of Bed: Head of Bed >30 degrees Ulcer Prophylaxis: protonix Glycemic Control: insulin infusion Created by Jose Ramon Alvarado MD Author:Jose Ramon Alvarado MD [address] [address]Gtaijehkfdwxxi signed by Jose Ramon Alvarado MD at 03/19/2017 4:54 PM Lee Fernandez MD - 03/19/2017 2:22 PM PDTFormatting of this note might be different fr om the original. . Extracorporeal Life Support Service Daily Progress Note Pager #[phone] Type: Veno-Arterial (CP[place] [address] [place] [id number]) Date of insertion: 03/15/2017 Diagnosis:Cardiogenic shock Dressing [...] Unit Attending Progress Note CVICU D2 Assigned #[id number] ICU Admission Reason Most Recent Value ICU [...] long tobacco abuse history, presenting with acute MS and STEMI, resu ltant cardiogenic shock refractory [...] Pager Mellisa Haji MD Admitting Provider Cardiology 01849 Code Status Code Status Full Code Quality section A-Line necessity reviewed: Truj-xp-lmkr blood pressure monitoring CVC necessity reviewed: Medication [...] Date of Service: 03/19/2017 Author:Anurag Ashby MD [address] P DTJose Ramon Alvarado MD - 03/18/2017 12:56 PM PDTFormatting of this note might be differen t from the original. Cardiovascular Intensive Care Unit Team Progress Note CVICU D2 Assigned #[id number] ICU Admission Reason Most Recent Value ICU [...] Plan Patient went into VFib during laboratory geneticist procedure at [facility]. Was shocked 17 times Targeted temperature [...] Patient was difficult intubation at outside laboratory geneticist. -vanc zosyn stopped today Abnormal CK Unknown [...] Pager Mellisa Haji MD Admitting Provider Cardiology 33778 Quality section A-Line necessity reviewed: Isvl-lj-bnhg blood pressure monitoring CVC necessity reviewed: Hemodynamic monitoring Reardon necessity reviewed: Hourly/Accurate measurement of urinary output for clinical manage ment of critically ill patients FAST HUG Feeding: trickle feeds Analgesia: multimodal Sedation: propofol Thromboprophylaxis: Heparin infusion Head of Bed: Head of Bed >30 degrees Ulcer Prophylaxis: nexium Glycemic Control: insulin infusion Created by Jose Ramon Alvarado MD Author:Jose Ramon Alvarado MD [address] [phone] signed by Jose Ramon Alvarado MD at 03/18/2017 1:27 PM PDTMoulton, Anurag Soni MD - 03/18/2017 11:56 AM PDTFormatting of this note might be differen t from the original. Cardiovascular Intensive Care Unit Attending Progress Note CVICU D2 Assigned #[id number] ICU Admission Reason Most Recent Value ICU [...] long tobacco abuse history, presenting with acute MS and STEMI, resu ltant cardiogenic shock refractory [...] Pager Mellisa Haji MD Admitting Provider Cardiology 46344 Code Status Code Status Full Code Quality section A-Line necessity reviewed: Azno-gq-olpp blood pressure monitoring CVC necessity reviewed: Medication [...] Date of Service: 03/18/2017 Author:Anurag Ashby MD [address] [id number] signed by Anurag Ashby MD at 03/18/2017 11:59 AM Lee Prince MD - 03/18/2017 11:37 AM PDTFormatting of this note might be different from nissa suh original. . Extracorporeal Life Support Service Daily Progress Note Pager #[phone] Type: Veno-Arterial (CPT 41389 or 67652) Diagnosis:Cardiogenic shock Dressing changed: no Dressing Changed [...] Life Support Service Daily Progress Note Pager #[phone] Type: Veno-Arterial (CPT 91980 or 90[address]) Date of insertion: 03/15/2017 Diagnosis:Cardiogenic shock Dressing [...] Unit Attending Progress Note CVICU D2 Assigned #[id number] ICU Admission Reason Most Recent Value ICU [...] long tobacco abuse history, presenting with acute MS and STEMI, resu ltant cardiogenic shock refractory [...] Pager Mellisa Haji MD Admitting Provider Cardiology 67842 Quality section A-Line necessity reviewed: Lzlh-fj-qxec blood pressure monitoring CVC necessity reviewed: Rapid [...] Date of Service: 03/17/2017 Author:Raul Wei MD [address] [place] [place] [id number] signed by Raul Wei MD at 03/17/2017 9:20 PM PD Anurag Kaba MD - 03/17/2017 1:58 PM PDTFormatting of this note might be different fro m the original. Cardiovascular Intensive Care Unit Attending Progress Note CVICU D2 Assigned #[id number] ICU Admission Reason Most Recent Value ICU [...] long tobacco abuse history, presenting with acute MS and STEMI, resu ltant cardiogenic shock refractory [...] Pager Mellisa Haji MD Admitting Provider Cardiology 32018 Quality section A-Line necessity reviewed: Qamo-hr-kkce blood pressure monitoring CVC necessity reviewed: Medication [...] Date of Service: 03/17/2017 Author:Anurag Ashby MD [address] [address]Ynnyrlgynclixu signed by Anurag Ashby MD at 03/17/2017 2:00 PM P Mauri Calderon - 03/17/2017 1:01 PM PDTTransthoracic echocardiogram completed. Final r eport to follow. Teddy Ibrahim DO, MS - 03/17/2017 10:00 AM PDT Cardiovascular Intensive Care Unit Team Progress Note CVICU D2 Assigned #[id number] ICU Admission Reason Most Recent Value ICU [...] Plan Patient went into VFib during laboratory geneticist procedure at [facility]. Was shocked 17 times Targeted temperature [...] Patient was difficult intubation at outside laboratory geneticist. -vanc zosyn stopped today Abnormal CK Unknown [...] Pager Mellisa Haji MD Admitting Provider Cardiology 23080 This patient does not have an Advanced Care Note for this Admission. Please use the Goal of care section of your ICU navigator to document the advanced care discussion. Quality section A-Line necessity reviewed: Wzan-sz-dcqa blood pressure monitoring CVC necessity reviewed: Hemodynamic monitoring Reardon necessity reviewed: Hourly/Accurate measurement of urinary output for clinical manage ment of critically ill patients FAST HUG Feeding: Tube Feeds Analgesia: apap, oxy, hm Sedation: propofol Thromboprophylaxis: Heparin infusion Head of Bed: Head of Bed Flat Ulcer Prophylaxis: Pantoprazole Glycemic Control: insulin infusion Created by Teddy Kee Do, MS [facility] DEPARTMENT: [facility] ICU CARDIAC Place of Service:- Inpatient CSN: [id number] Suggested Modifier: GC - Resident Involved Suggested CPT: TO ATOMIC FUEL ASSEMBLER Author:Teddy Kee Do, MS [address] [id number] signed by Teddy Kee DO, MS at 03/17/2017 6:35 PM PDTRaul Wei MD - 03/16/2017 7:38 PM PDT Cardiovascular Intensive Care Unit Attending Progress Note CVICU D2 Assigned #[id number] ICU Admission Reason Most Recent Value ICU [...] long tobacco abuse history, presenting with acute MS and STEMI, resu ltant cardiogenic shock refractory [...] Pager Mellisa Haji MD Admitting Provider Cardiology 07993 Quality section A-Line necessity reviewed: Tzis-mj-zfgk blood pressure monitoring CVC necessity reviewed: Rapid [...] Date of Service: 03/16/2017 Author:Raul Wei MD [facility] [address] [place] [address]Vohifvadoizpxp signed by Raul Wei MD at 03/17/2017 11:03 AM PD Jose Ramon Rodriguez MD - 03/16/2017 5:15 PM PDT Cardiovascular Intensive Care Unit Team Progress Note CVICU D2 Assigned #[id number] ICU Admission Reason Most Recent Value ICU [...] Plan Patient went into VFib during laboratory geneticist procedure at [facility]. Was shocked 17 times Now on [...] Patient was difficult intubation at outside laboratory geneticist. -bridget retana for now Physical Exam vitals [...] Pager Mellisa Haji MD Admitting Provider Cardiology 52709 Quality section A-Line necessity reviewed: Fryu-tk-tmbu blood pressure monitoring CVC necessity reviewed: Hemodynamic [...] Ramon Alvarado MD Author:Jose Ramon Alvarado MD [address] [address]Jbwqoothflsoqo signed by Jose Ramon Alvarado MD at [...] Unit Attending Progress Note CVICU D2 Assigned #[id number] ICU Admission Reason Most Recent Value ICU [...] ICU Day #2 after being transferred from [place] in [place] in acute cardiogenic archie ck following an anterior STEMI. Upon arrival to [facility], decision was made to go emergently [...] Pager Mellisa Haji MD Admitting Provider Cardiology 84826 Quality section A-Line necessity reviewed: Aejz-tl-bnym blood pressure monitoring CVC necessity reviewed: Hemodynamic [...] Date of Service: 03/16/2017 Author:Anurag Ashby MD [address] [id number] signed by Anurag Ashby MD at 03/16/2017 1:23 PM Lee Prince MD - 03/16/2017 9:41 AM PDTFormatting of this note might be different from t vikash original. . Extracorporeal Life Support Service Daily Progress Note Pager #[phone] Type: Veno-Arterial (CPT 40308 or [address]) Diagnosis:Cardiogenic shock Dressing changed: no Dressing Changed [...] Clinical Update Note Team: D2 Team Pager: [phone] Attending: Abdulaziz Pt Name: Ron Mckeon ID: [...] Date of Service: 03/16/2017 Mirna Berumen PA-C [facility] DEPARTMENT: [facility] ICU CARDIAC Place of Service:- Inpatient CSN: [id number] Suggested Modifier: None Suggested CPT: TO ATOMIC FUEL ASSEMBLER Mirna Berumen PA-C Everardo Valladares MD - 03/15/2017 9:04 PM PDT Cardiovascular Intensive Care Unit Attending Progress Note CVICU D2 Assigned #[id number] ICU Admission Reason Most Recent Value ICU Admission reason Cardiogenic Shock filed at 03/15/2017 1531 Hospital admission dx: left anterior descending artery occlusion, needs cabg Days in ICU Days in Hospital Medical Decision Making ICU Day #1 after being transferred from [place] in [place] in acute cardiogenic archie ck following an anterior STEMI. Upon arrival to [facility], decision was made to go emergently [...] Mellisa Haji MD Admitting Provider Cardiology 21258 Quality section A-Line necessity reviewed: Htiu-wc-gvyi blood pressure monitoring CVC necessity reviewed: Hemodynamic [...] and the recent imaging available. Seen with PA/PAPER REWINDER OPERATOR Winston Cole. Please see their note for details. I reviewed the documented findings, all data and the recent imaging available. Date of Service: 03/15/2017 Author:Everardo Cintron MD [address] [id number] signed by Everardo Cintron MD at 03/15/2017 9:[address] - 03/15/2017 2:11 PM PDTTransthoracic echocardiogram completed. Final r eport to follow. atrick Ruiz MD,MPH - 03/15/2017 2:00 PM PDT . Extracorporeal Life Support Service Consult Service Note Pager #[phone] Date: 03/15/17 Author: Patrick Ruiz MD,MPH Consulting Attending: Mellisa Haji MD Reason for Consult: [facility] ECMO Consideration HPI: 61 year old male who presents this afternoon to [facility] in acute cardiogenic shock second maciej to STEMI / thrombosed L main coronary artery. He was transferred from [place]. His symptoms started this morning around 3am and was seen in [place], [place]. He was diagnosed w ith an anterior STEMI and transferred to the laboratory geneticist in [place], [place]. He was found to h ave [...] and dopamine). On arrival to [facility], he was in profound cardiogenic shock and hypoxic. His MAP was in the 40s. He was tach ycardic into the 150s. IABP was increased to 1:2. Past Medical History: Past Medical History: Diagnosis Date Cardiogenic shock ([facility]) 03/15/2017 Coronary artery disease 03/15/2017 Hypercholesterolemia [...] from cardiogenic shock. Patrick Ruiz MD, MPH bowling alley mechanic Trauma, Critical Care & Acute Care Surgery [facility] onies, Patrick Sexton MD,MPH - 03/15/2017 1:48 PM PDT . . Extracorporeal Life Support Service Initiation Note Pager #[phone] Date of service: 03/15/2017 Author: Patrick Ruiz Md,Mph ECMO Type: Veno-Arterial (CPT 37003 [place] [address]) Oxygenation index FiO2: 100 MAP: 22 Diagnosis:Cardiogenic [...] old male who presents this afternoon to [facility] in acute cardiogenic shock secondary to [...] | + +--------+ + + + | ZM-XW-JOL-HB,POC RT | Routin | 03/19/2017 | ST [...] +---+--------+ + +--------+ + + + | BK-XU-DVD-HB,POC RT | Routin | 03/19/2017 | ST [...] | + +--------+ + + + | TP-SZ-CLC-HB,POC RT | Routin | 03/19/2017 | ST elevation | Results for this | | | e | 10:06 AM | myocardial | procedure are in the | | | | PDT | infarction involving | results section. | | | | | left main coronary | | | | | | artery (HCC) | | + +--------+ + + + | IX-VI-PEA-HB,POC RT | Routin | 03/19/2017 | ST [...] | + +--------+ + + + | PP-QH-HQJ-HB,POC RT | Routin | 03/17/2017 | ST [...] | + +--------+ + + + | OT-GX-XCG-HB,POC RT | Routin | 03/16/2017 | ST [...] | + +--------+ + + + | QM-NK-PDE-HB,POC RT | Routin | 03/16/2017 | ST [...] | + +--------+ + + + | WV-FH-OTS-HB,POC RT | Routin | 03/15/2017 | ST [...] | + +--------+ + + + | XW-FM-PIV-HB,POC RT | Routin | 03/15/2017 | ST [...] | + +--------+ + + + | WL-CW-ROC-HB,POC RT | Routin | 03/15/2017 | ST [...] Height: 175 cm Weight: 89 kgBSA: 2.05 [id number] PHYSICIAN:Katarina Ngo, | | .FELLOW:Gerson Mejias M.D. [...] right coronary angiography.COMPLICATIONS:None.TECHNIQUE:Right femoral artery | | 6-Portuguese 10 cm [place] sheath, 6-Portuguese XB 3.5 guide catheter, 5-Portuguese JR4 | | catheter.DESCRIPTION OF PROCEDURE:Informed consent [...] modified Seldinger technique and a | | 5-Portuguese micropuncture system, a 6-Portuguese 10 cm [place] sheath was placed in the right | | femoral artery. A 6-Portuguese XB 3.5 guide catheter was inserted into the ascending aorta | | over a guidewire. The guidewire was removed. The catheter was aspirated and flushed. | | The left coronary system was selectively engaged and imaged in multiple projections. A | | 5-Portuguese Kymberly right 4 catheter was advanced to [...] DOSE AREA | | PRODUCT: 3749 cGy [id number]:Aortic pressure 87/15, mean aortic pressure 63, heart [...] 03/30/2017 04:50:01DT: | | 03/30/2017 08:34:34Job #: [id number] | |extending from it into the LAD. [...] |YDT/MODL | | | | | | /[id number] | + + CAPILLARY BLOOD GLUCOSE (NO [...] + + + | [facility] | [address] | [place], [place] | | | JULIANN SILVA OF [facility] | [address] | [address] | | | TESTS | | | [...] [facility] | [address] | [place] [address] | | | SERVICES, CORE | PARK [...] [facility] | [address] | [place] [address] | | | SERVICES, CORE | PARK [...] [facility] | [address] | [place] [address] | | | SERVICES, CORE | PARK [...] | | | LABORATORY | | | [place] | | | SERVICES, | | | [...] + + | [facility] | [address] | [place] [address] | | | SERVICES, CORE | TABITHA [...] | + + + + + | [facility] | [address] | [place] [address] | | | SERVICES, CORE | PARK [...] [facility] | [address] | [place] [address] | | | ИРИНА ANTOINE | TABITHA [...] + + + | [facility] | [address] | [place], [place] | | | RICARDO POINT OF CARE | [address] | [address] | | | TESTS | | | [...] [facility] | [address] | [place], [place] | | | R[facility]O POINT OF CARE | [address] | [address] | | | TESTS | | | [...] [facility] | [address] | [place], [place] | | | R[facility]ARDO POINT OF CARE | [address] | [address] | | | TESTS | | | [...] + + + + + | [facility] | [address] [facility] | [place] [address] | | | SERVICES, CORE | PARK [...] | | | LABORATORY | | | [place] | | | SERVICES, | | | [...] [facility] | [address] | [place] [address] | | | SERVICES, CORE | TABITHA [...] + + + + + | [facility] | [address] | [place] [address] | | | ARASH, ИРИНА | [address] | | | + + + + + MAGNESIUM, PLASMA (04/01/2017 3:43 AM PDT) + +-------+ + + + | Component | Value | Ref Range | Performed | Pathologist | | | | | At | Signature | + +-------+ + + + | MAGNESIUM,P | 2.2 | 1.8 - 2.5 mg/dL | [facility] | | | FEI | | | [...] + + + + + | [facility] | [address] | [place] [address] | | | SERVICES, CORE | PARK [...] (H) | 70 - 99 mg/dL | [facility] - | | | GLUCOSE, | [...] [facility] | [address] | [place], [place] | | | JULIANN SILVA OF CARE | [address] | [address] | | | TESTS | | | [...] [facility] | [address] | [place], [place] | | | JULIANN SILVA OF CARE | [facility] | [address] | | | TESTS | | | [...] (H) | 70 - 99 mg/dL | [facility] - | | | GLUCOSE, | [...] [facility] | [address] | [place], [place] | | | JULIANN SILVA OF CARE | [address] | [address] | | | TESTS | | | [...] [facility] | [address] | [place], [place] | | | GURINDER SILVA | [facility] | [address] | | | TESTS | | | [...] [facility] | [address] | [place] [address] | | | ИРИНА ANTOINE | TABITHA [...] | | | LABORATORY | | | [place] | | | SERVICES, | | | [...] | + + + + + | [employer] | [address] | [place] [address] | | | SERVICES, CORE | PARK [...] [facility] | [address] | [place] [address] | | | SERVICES, CORE | [address] | | | + + + + + MAGNESIUM, PLASMA (03/31/2017 3:45 AM PDT) + +-------+ + + + | Component | Value | Ref Range | Performed | Pathologist | | | | | At | Signature | + +-------+ + + + | MAGNESIUM,P | 2.4 | 1.8 - 2.5 mg/dL | [facility] [...] + + + + + | [facility] | [address] | [place] [address] | | | ARASH, CORE | PARK [...] [facility] | [address] | [place] [address] | | | SERVICES, CORE | TABITHA [...] - [facility] | [address] | [place], [place] | | | R[facility]ARDO POINT OF CARE | [address] | [address] | | | TESTS | | | [...] | | | LABORATORY | | | [place] | | | SERVICES, | | | [...] + + + + + | [facility] | [address] | [place] [address] | | | ИРИНА ANTOINE | TABITHA [...] DEPT OF | [address] | [place], [place] | | | CARDIOLOGY | [address] | [address] | | + + + + + [...] [facility] | [address] | [place], [place] | | | RICARDO POINT OF CARE | [address] | [address] | | | TESTS | | | [...] | | | LABORATORY | | | [place] | | | SERVICES, | | | [...] + + | [facility] | [address] | [place] [address] | | | SERVICES, CORE [...] LABORATORY | [address] | [place] [address] | | | SERVICES, CORE | TABITHA [...] rmed At | + +------ + | [facility] | [facility] | | [facility] Adult Echocardiography | CARDI OLOGY | | Laboratory [address] [place] [address], | | | [place] [address] Pt Name: | | | RON MCKEON Study Date/Time 03/30/2017 / 10:44:00 | | | AMMRN: [id number] Most recent | | | prior: 03/19/17cc #: [id number] No. previous | | | echos: 3DOB: 1955 61 years Heart | | | Rate: 70 bpmHeight: 68.0 in | | | Blood Pressure: 100/55 mm/HgWeight: 197.0 | | | lb Gender: | | | MBSA: 2.03 m2 Order | | | ID: [id number] Gis Specialist: Shahab Sutton | | | RDCSSonographer 2: Karly Gayle Referring Provider: Ariana | | | [facility] Location: 11KModalities Performed: 2D, Color flow, [...] Tn, | | | patient's significant recent MS, we activated the laboratory geneticist. Patient | | | history has been [...] Report electronically signed by: | | | [id number] Jordon Neville MD (03/30/2017, 2:04:56 PM) Final | | | | | |Wall Scoring: | | | | | | | | |Report electronically signed by: [id number] Jordon Neville MD (03/30/2017, 2:04:56 PM) | | | | | | | | | | | | Final | | + +------ + + + | Procedure Note | + + | Interface, Cardiology Results - 03/30/2017 2:04 PM [facility] | | [facility] Echocardiography Laboratory [address] [place] [address] | | [place], [place] [address] Pt Name: RON Chaudhary | | MIKE Study Date/Time 03/30/2017 / 10:44:00 AMMRN: [id number] Most | | recent prior: 03/19/17 #: [id number] No. previous echos: 3DOB: | | 1955 61 years Heart Rate: 70 bpmHeight: 68.0 in Blood | | Pressure: 100/55 mm/HgWeight: 197.0 lb Gender: MBSA: | | 2.03 m2 Order ID: [id number] Gis Specialist: Shahab Sutton | | RDCSSonographer 2: [...] elevated Tn, | | patient's significant recent MS, we activated the laboratory geneticist. Patient history has been | | obtained [...] Scoring: Report | | electronically signed by: [id number] Jordon Neville MD (03/30/2017, 2:04:56 PM) Final [...] | | | |Report electronically signed by: [id number] Jordon Neville MD (03/30/2017, 2:04:56 PM) | | | | | | | | Final | + + + + + + + | Performing | Address | City/State/Zipcode | Phone Number | | Organization | | | | + + + + + | [facility] | [address] | [place], [place] | | | CARDIOLOGY | [address] | [address] | | + + + + + [...] [facility] | [address] | [place], [place] | | | R[facility]ARDO POINT OF CARE | [address] | [address] | | | TESTS | | | [...] + | [facility] | [address] | [place] [address] | | | SERVICES, CORE | TABITHA [...] [facility] | [address] | [place], [place] | | | JULIANN SILVA OF [facility] | [address] | [address] | | | TESTS | | | [...] + | [facility] | [address] [facility] | [place], [place] | | | CARDIOLOGY | [address] | [address] | | + + + + + [...] | | | LABORATORY | | | [place] | | | SERVICES, | | | [...] [facility] | [address] | [place] [address] | | | SERVICES, CORE | PARK [...] [facility] | [address] | [place] [address] | | | SERVICES, CORE | TABITHA [...] + + + + + | [facility] | [address] | [place] [address] | | | SERVICES, CORE | [address] | | | + + + + + 12 LEAD ECG (03/30/2017 2:47 AM PDT) + + + + + + | Component | Value | Ref Range | Performed | Pathologist | | | | | At | Signature | + + + + + + | VENTRICULAR | 93 | bpm | [facility] | | | RATE | | [...] DEPT OF | [address] | [place], [place] | | | CARDIOLOGY | [address] | [address] | | + + + + + [...] DEPT OF | [address] | [place], [place] | | | CARDIOLOGY | [address] | [address] | | + + + + + [...] [facility] | [address] | [place] [address] | | | SERVICES, CORE | PARK [...] + | [facility] | [address] [facility] [address] | [place] [address] | | | SERVICES, CORE | TABITHA [...] + + + + + | [facility] | [address] | [place] [address] | | | ARASH, ИРИНА | P[address] [...] [facility] | [address] | [place] [address] | | | SERVICES, CORE | PARK [...] [facility] | [address] | [place], [place] | | | JULIANN SILVA OF [facility] | [address] | [address] | | | TESTS | | | [...] + + + + + | [facility] | [address] | [place] [address] | | | SERVICES, CORE | TABITHA [...] [facility] | [address] | [place], [place] | | | CARDIOLOGY | [address] | [address] | | + + + + + [...] - [facility] | [address] | [place], [place] | | | R[facility]ARDO POINT OF CARE | [address] | [address] | | | TESTS | | | [...] [facility] | [address] | [place], [place] | | | R[facility]O POINT OF [facility] | [address] | [address] | | | TESTS | | | [...] [facility] | [address] | [place] [address] | | | SERVICES, CORE | TABITHA [...] [facility] | [address] | [place], [place] | | | RICARDO POINT OF CARE | [address] | [address] | | | TESTS | | | [...] [facility] | [address] | [place] [address] | | | SERVICES, CORE | PARK [...] | | | LABORATORY | | | [place] | | | SERVICES, | | | [...] | + + + + + | [employer] | [address] | [place] [address] | | | SERVICES, CORE | TABITHA [...] + + + + + | [facility] | [address] [facility] [address] | [place] [address] | | | ARASH, ИРИНА | TABITHA [...] + + + + + | [facility] | [address] | [place] [address] | | | SERVICES, CORE | TABITHA [...] [facility] | [address] | [place] [address] | | | ARASH, ИРИНА | TABITHA [...] + + + + + | [facility] | [address] | [place] [address] | | | SERVICES, CORE | TABITHA [...] [facility] | [address] | [place], [place] | | | JULIANN SILVA OF [facility] | [address] | [address] | | | TESTS | | | [...] [facility] | [address] | [place], [place] | | | JUL[facility]ANN S[facility] | [facility] | [address] | | | TESTS | | | [...] | | | LABORATORY | | | [place] | | | SERVICES, | | | [...] + + + + + | [facility] | [address] | [place] [address] | | | ARASH, ИРИНА | PARK [...] [facility] | [address] | [place] [address] | | | SERVICES, CORE | PARK [...] | | | LABORATORY | | | [place] | | | SERVICES, | | | [...] + | [facility] | [address] [facility] [address] | [place] [address] | | | SERVICES, CORE | TABITHA [...] [facility] | [address] | [place], [place] | | | JULIANN SILVA OF CARE | [address] | [address] | | | TESTS | | | [...] [facility] | [address] | [place], [place] | | | JULIANN SILVA OF CARE | [address] | [address] | | | TESTS | | | [...] + + | [facility] | [address] [facility] | [place] [address] | | | SERVICES, ИРИНА | TABITHA [...] | | | LABORATORY | | | [place] | | | SERVICES, | | | [...] + + | [facility] | [address] [facility] | [place] [address] | | | SERVICES, CORE | PARK [...] | + + + + + | [employer] | [address] | [place] [address] | | | SERVICES, CORE | PARK [...] [facility] | [address] | [place] [address] | | | SERVICES, CORE | [address] | | | + + + + + MAGNESIUM, PLASMA (03/28/2017 4:13 AM PDT) + +---------+ + + + | Component | Value | Ref Range | Performed | Pathologist | | | | | At | Signature | + +---------+ + + + | MAGNESIUM,P | 2.7 (H) | 1.8 - 2.5 mg/dL | [facility] | | | DENISEMA | | [...] + + + + + | [facility] | [address] | [place] [address] | | | SERVICES, CORE | PARK [...] [facility] | [address] | [place], [place] | | | [facility] | [address] | [address] | | | TESTS | | | [...] R[facility] | [address] | [place], [place] | | | [facility] | [address] | [address] | | | TESTS | | | [...] MARIA | [address] | [place], [place] | | | [facility] | [address] | [address] | | | TESTS | | | [...] ANA MARIA | [address] | [place], [place] | | | [facility] | [address] | [address] | | | TESTS | | | [...] [facility] | [address] | [place] [address] | | | SERVICES, CORE | PARK [...] [facility] | [address] | [place] [address] | | | SERVICES, CORE | TABITHA [...] | | | LABORATORY | | | [place] | | | SERVICES, | | | [...] [facility] | [address] | [place] [address] | | | SERVICES, CORE | PARK [...] + + + + + | [facility] | [address] | [place] [address] | | | SERVICES, CORE | PARK [...] [facility] | [address] | [place] [address] | | | SERVICES, CORE | TABITHA [...] - [facility] | [address] | [place], [place] | | | [facility] | [address] | [address] | | | TESTS | | | [...] + + + | [facility] | [address] | [place], [place] | | | [facility] | [address] | [address] | | | TESTS | | | [...] | | | LABORATORY | | | [place] | | | SERVICES, | | | [...] [facility] | [address] | [place] [address] | | | SERVICES, CORE | TABITHA [...] + + + + | [facility] | [address] | [place], [place] | | | [facility] | [address] | [address] | | | TESTS | | | | + + + + + RAINBOW HOLD TUBE - GREEN TOP (03/26/2017 3:50 AM PDT) + + | Specimen | + + | Blood | + + + + + + + | Performing | Address | City/State/Zipcode | Phone Number | | Organization | | | | + + + + + | [employer] | [address] | [place] [address] | | | SERVICES, CORE | TABITHA [...] + | [facility] | [address] | [place] [address] | | | SERVICES, CORE | PARK [...] + + + + + | [facility] | [address] | [place] [address] | | | ИРИНА ANTOINE | TABITHA [...] | | | LABORATORY | | | [place] | | | SERVICES, | | | [...] EULOGIO CAL[facility]RES[facility] | [address] | [place] [address] | | | SERVICES, CORE | TABITHA [...] [facility] | [address] | [place] [address] | | | SERVICES, CORE | TABITHA [...] [facility] | [address] | [place] [address] | | | SERVICES, CORE | PARK [...] [facility] | | considered for monitoring terminal clerk glycemic control in patients with: | [...] [facility] | [address] | [place] [address] | | | SERVICES, SPECIAL | PARK [...] + + + + + | [facility] | [address] | [place] [address] | | | SERVICES, CORE | TABITHA [...] [facility] | [address] | [place], [place] | | | [facility] | [address] | [address] | | | TESTS | | | [...] [facility] | [address] | [place], [place] | | | [facility] | [address] | [address] | | | TESTS | | | [...] | + + + + + | [facility] | [address] | [place] [address] | | | SERVICES, CORE | TABITHA [...] | [facility] | | | GRAVITY | [place] performed by | | LABORATORY | | [...] [facility] | [address] | [place] [address] | | | SERVICES, CORE | TABITHA [...] + | [facility] | [address] | [place] [address] | | | [place] | | | [...] [facility] | [address] | [place], [place] | | | [facility] | [address] | [address] | | | TESTS | | | [...] [facility] | [address] | [place], [place] | | | [facility] | [address] | [address] | | | TESTS | | | [...] [facility] | [address] | [place] [address] | | | ИРИНА ANTOINE | TABITHA [...] + + + + + | [facility] | [address] | [place] [address] | | | ИРИНА ANTOINE | TABITHA [...] + + + + + | [facility] | [address] | [place] [address] | | | ИРИНА ANTOINE | TABITHA [...] [facility] | [address] | [place] [address] | | | SERVICES, CORE | PARK [...] | | | LABORATORY | | | [place] | | | SERVICES, | | | [...] | + + + + + | [employer] | [address] [facility] | [place] [address] | | | SERVICES, CORE | PARK [...] + + + + + | [facility] | [address] [facility] | [place] [address] | | | SERVICES, CORE | PARK [...] [facility] | [address] | [place], [place] | | | [facility] | [address] | [address] | | | TESTS | | | [...] - [facility] | [address] | [place], [place] | | | [facility] | [address] | [address] | | | TESTS | | | [...] [facility] | [address] | [place], [place] | | | [facility] | [address] | [address] | | | TESTS | | | [...] [facility] | [address] | [place], [place] | | | [facility] | [address] | [address] | | | TESTS | | | [...] [facility] | [address] | [place] [address] | | | SERVICES, CORE | PARK [...] | + + + + + | [employer] | [address] | [place] [address] | | | SERVICES, CORE | TABITHA [...] [facility] | [address] | [place], [place] | | | [facility] | [address] | [address] | | | TESTS | | | [...] | | | attempt. Midline lot number [id number]; there was + blood | | | [...] [facility] | [address] | [place], [place] | | | [facility] | [address] | [address] | | | TESTS | | | [...] [facility] | [address] | [place], [place] | | | [facility] | [address] | [address] | | | TESTS | | | [...] [facility] | [address] | [place] [address] | | | SERVICES, CORE | TABITHA [...] (H) | 70 - 99 mg/dL | [facility] | | | GLUCOSE, | [...] [facility] | [address] | [place], [place] | | | [facility] | [facility] | [address] | | | TESTS | | | [...] MARIA | [address] | [place], [place] | | | [facility] | [address] | [address] | | | TESTS | | | [...] MARIA | [address] | [place], [place] | | | [facility] | [facility] | [address] | | | TESTS | | | [...] (H) | 70 - 99 mg/dL | [facility] | | | GLUCOSE, | [...] [facility] | [address] | [place], [place] | | | [facility] | [facility] | [address] | | | TESTS | | | [...] [facility] | [address] | [place] [address] | | | SERVICES, CORE | TABITHA [...] [facility] | [address] | [place] [address] | | | SERVICES, CORE | TABITHA [...] [facility] | [address] | [place] [address] | | | SERVICES, CORE | TABITHA [...] | | | LABORATORY | | | [place] | | | SERVICES, | | | [...] [facility] | [address] | [place] [address] | | | SERVICES, CORE | TABITHA [...] + + + + + | [facility] | [address] | [place] [address] | | | ИРИНА ANTOINE | TABITHA [...] ANA MARIA | [address] | [place], [place] | | | [facility] | [address] | [address] | | | TESTS | | | [...] (H) | 70 - 99 mg/dL | [facility] | | | GLUCOSE, | [...] [facility] | [address] | [place], [place] | | | [facility] | [address] | [address] | | | TESTS | | | [...] [facility] | [address] | [place], [place] | | | [facility] | [address] | [address] | | | TESTS | | | [...] ANA MARIA | [address] | [place], [place] | | | [facility] | [address] | [address] | | | TESTS | | | [...] [facility] | [address] | [place] [address] | | | SERVICES, CORE | TABITHA [...] [facility] | [address] | [place] | | | [facility] | [address] | [address] | | | TESTS | | | [...] ANA MARIA | [address] | [place], [place] | | | [facility] | [address] | [address] | | | TESTS | | | [...] + + + + + | [facility] | [address] | [place] [address] | | | SERVICES, CORE | TABITHA [...] [facility] | [address] | [place], [place] | | | [facility] | [facility] | [address] | | | TESTS | | | [...] [facility] | [address] | [place], [place] | | | [facility] | [address] | [address] | | | TESTS | | | [...] (H) | 70 - 99 mg/dL | [facility] | | | GLUCOSE, | [...] [facility] | [address] | [place], [place] | | | [facility] | [address] | [address] | | | TESTS | | | [...] [facility] | [address] | [place], [place] | | | [facility] | [facility] | [address] | | | TESTS | | | [...] MARIA | [address] | [place], [place] | | | [facility] | [address] | [address] | | | TESTS | | | [...] [facility] | [address] | [place] [address] | | | SERVICES, CORE | PARK [...] + + + + + | [facility] | [address] | [place] [address] | | | SERVICES, CORE | PARK [...] [facility] | [address] | [place] [address] | | | SERVICES, CORE | TABITHA [...] | | | LABORATORY | | | [place] | | | SERVICES, | | | [...] + + | [facility] | [address] | [place] [address] | | | SERVICES, CORE | PARK [...] + + + + + | [facility] | [address] | [place] [address] | | | SERVICES, CORE | TABITHA [...] MARIA | [address] | [place], [place] | | | [facility] | [facility] | [address] | | | TESTS | | | [...] MARIA | [address] | [place], [place] | | | [facility] | [facility] | [address] | | | TESTS | | | [...] (H) | 70 - 99 mg/dL | [facility] | | | GLUCOSE, | [...] MARIA | [address] | [place], [place] | | | [facility] | [address] | [address] | | | TESTS | | | [...] MARIA | [address] | [place], [place] | | | [facility] | [facility] | [address] | | | TESTS | | | [...] [facility] | [address] | [place], [place] | | | [facility] | [facility] | [address] | | | TESTS | | | [...] (H) | 70 - 99 mg/dL | [facility] | | | GLUCOSE, | [...] MARIA | [address] | [place], [place] | | | [facility] | [address] | [address] | | | TESTS | | | [...] [facility] | [address] | [place] [address] | | | SERVICES, CORE | PARK [...] - [facility] | [address] | [place], [place] | | | [facility] | [facility] | [address] | | | TESTS | | | [...] [facility] | [address] | [place], [place] | | | [facility] | [address] | [address] | | | TESTS | | | [...] [facility] | [address] | [place], [place] | | | [facility] | [address] | [address] | | | TESTS | | | [...] - [facility] | [address] | [place], [place] | | | [facility] | [address] | [address] | | | TESTS | | | [...] + + + | [facility] | [address] | [place], [place] | | | [facility] | [address] | [address] | | | TESTS | | | [...] [facility] | [address] | [place] [address] | | | ARASH, ИРИНА | TABITHA [...] [facility] | [address] | [place], [place] | | | [facility] | [address] | [address] | | | TESTS | | | [...] [facility] | [address] | [place], [place] | | | [facility] | [address] | [address] | | | TESTS | | | [...] [facility] | [address] | [place], [place] | | | [facility] | [address] | [address] | | | TESTS | | | [...] [facility] | [address] | [place], [place] | | | [facility] | [address] | [address] | | | TESTS | | | [...] [facility] | [address] | [place], [place] | | | [facility] | [address] | [address] | | | TESTS | | | [...] [facility] | [address] | [place], [place] | | | H[facility], POINT [facility] | [address] | [address] | | | TESTS | | | [...] [facility] | [address] | [place] [address] | | | SERVICES, | [address] [...] + + + + + | [facility] | [address] | [place] [address] | | | SERVICES, | [address] [...] + + + + | PRODUCT | [id number] | | [facility] | | | UNIT [...] + + + + | EXPIRATION | [id number] | | [facility] | | | DATE [...] + + + + | BLOOD | [id number] | | [facility] | | | PRODUCT [...] [facility] | [address] | [place] [address] | | | SERVICES, | [address] [...] [facility] | [address] | [place] [address] | | | SERVICESИРИНА | [address] [...] | + + + + + | [facility] | [address] [facility] | [place] [address] | | | SERVICES, CORE | PARK [...] [facility] | [address] | [place] [address] | | | ИРИНА ANTOINE | TABITHA [...] + + + + + | [facility] | [address] [facility] | [place] [address] | | | SERVICES, CORE | TABIHTA [...] [facility] | [address] | [place] [address] | | | SERVICES, CORE | PARK [...] | | | LABORATORY | | | [place] | | | SERVICES, | | | [...] + + + + + | [facility] | [address] | [place] [address] | | | SERVICES, CORE | PARK [...] MARIA | [address] | [place], [place] | | | [facility] | [facility] | [address] | | | TESTS | | | [...] (H) | 70 - 99 mg/dL | [facility] | | | GLUCOSE, | [...] [facility] | [address] | [place], [place] | | | [facility] | [facility] | [address] | | | TESTS | | | [...] MARIA | [address] | [place], [place] | | | [facility] | [address] | [address] | | | TESTS | | | [...] ANA MARIA | [address] | [place], [place] | | | [facility] | [facility] | [address] | | | TESTS | | | [...] (H) | 70 - 99 mg/dL | [facility] | | | GLUCOSE, | [...] [facility] | [address] | [place], [place] | | | [facility] | [facility] | [address] | | | TESTS | | | [...] MARIA | [address] | [place], [place] | | | [facility] | [address] | [address] | | | TESTS | | | [...] MARIA | [address] | [place], [place] | | | [facility] | [facility] | [address] | | | TESTS | | | [...] (H) | 70 - 99 mg/dL | [facility] | | | GLUCOSE, | [...] [facility] | [address] | [place], [place] | | | [facility] | [address] | [address] | | | TESTS | | | [...] MARIA | [address] | [place], [place] | | | [facility] | [address] | [address] | | | TESTS | | | [...] | | | LABORATORY | | | [place] | | | SERVICES, | | | [...] + + + + + | [facility] | [address] | [place] [address] | | | SERVICES, CORE | PARK [...] [facility] | [address] | [place], [place] | | | [facility] | [address] | [address] | | | TESTS | | | [...] [facility] | [address] | [place], [place] | | | [facility] | [address] | [address] | | | TESTS | | | [...] (H) | 70 - 99 mg/dL | [facility] | | | GLUCOSE, | [...] [facility] | [address] | [place], [place] | | | [facility] | [address] | [address] | | | TESTS | | | [...] on the 1 attempt. Midline lot number [id number]; there was + | | | blood [...] [facility] | [address] | [place], [place] | | | [facility] | [facility] | [address] | | | TESTS | | | [...] [facility] | [address] | [place], [place] | | | [facility] | [address] | [address] | | | TESTS | | | [...] [facility] | [address] | [place] [address] | | | SERVICES, CORE | PARK [...] [facility] | [address] | [place], [place] | | | [facility] | [address] | [address] | | | TESTS | | | [...] [facility] | [address] | [place] [address] | | | SERVICES, CORE | PARK [...] MARIA | [address] | [place], [place] | | | [facility] | [address] | [address] | | | TESTS | | | [...] MARIA | [address] | [place], [place] | | | [facility] | [facility] | [address] | | | TESTS | | | [...] (H) | 70 - 99 mg/dL | [facility] | | | GLUCOSE, | [...] [facility] | [address] | [place], [place] | | | [facility] | [address] | [address] | | | TESTS | | | [...] MARIA | [address] | [place], [place] | | | [facility] | [address] | [address] | | | TESTS | | | [...] [facility] | [address] | [place] [address] | | | ИРИНА ANTOINE | TABITHA [...] + + + + + | [facility] | [address] | [place] [address] | | | SERVICES, CORE | [address] | | | + + + + + MAGNESIUM, PLASMA (03/21/2017 5:34 AM PDT) + +---------+ + + + | Component | Value | Ref Range | Performed | Pathologist | | | | | At | Signature | + +---------+ + + + | MAGNESIUM,P | 2.6 (H) | 1.8 - 2.5 mg/dL | PAMENDY [...] + | [facility] | [address] [facility] | [place] [address] | | | SERVICES, CORE | TABITHA [...] | | | LABORATORY | | | [place] | | | SERVICES, | | | [...] [facility] | [address] | [place] [address] | | | ИРИНА ANTOINE | TABITHA [...] (H) | 70 - 99 mg/dL | [facility] | | | GLUCOSE, | [...] [facility] | [address] | [place], [place] | | | [facility] | [address] | [address] | | | TESTS | | | [...] MARIA | [address] | [place], [place] | | | [facility] | [address] | [address] | | | TESTS | | | [...] [facility] | [address] | [place], [place] | | | [facility] | [address] | [address] | | | TESTS | | | [...] [facility] | [address] | [place], [place] | | | [facility] | [address] | [address] | | | TESTS | | | [...] [facility] | [address] | [place], [place] | | | [facility] | [address] | [address] | | | TESTS | | | [...] + + + + + | [facility] | [address] | [place] [address] | | | SERVICES, CORE | TABITHA [...] (H) | 70 - 99 mg/dL | [facility] | | | GLUCOSE, | [...] [facility] | [address] | [place], [place] | | | [facility] | [address] | [address] | | | TESTS | | | [...] [facility] | [address] | [place], [place] | | | [facility] | [address] | [address] | | | TESTS | | | [...] [facility] | [address] | [place], [place] | | | [facility] | [facility] | [address] | | | TESTS | | | [...] [facility] | [address] | [place], [place] | | | [facility] | [address] | [address] | | | TESTS | | | [...] [facility] | [address] | [place], [place] | | | H[facility], POINT [facility] CARE | [address] | [address] | | | TESTS | | | [...] [facility] | [address] | [place], [place] | | | [facility] | [facility] | [address] | | | TESTS | | | [...] [facility] | [address] | [place], [place] | | | [facility] | [address] | [address] | | | TESTS | | | [...] [facility] | [address] | [place] [address] | | | SERVICES, CORE | TABITHA [...] (H) | 70 - 99 mg/dL | [facility] | | | GLUCOSE, | [...] [facility] | [address] | [place], [place] | | | [facility] | [facility] | [address] | | | TESTS | | | [...] MARIA | [address] | [place], [place] | | | [facility] | [address] | [address] | | | TESTS | | | [...] + + + + + | [facility] | [address] | [place] [address] | | | ИРИНА ANTOINE | TABITHA [...] [facility] | [address] | [place], [place] | | | [facility] | [address] | [address] | | | TESTS | | | [...] the tip in the proximal gastric body. Peterson Олег | | | catheter in place. [...] Note | + + | Service Account, [employer] In Interface - 03/20/2017 2:38 PM PDT EXAM: Supine | | frontal view of the abdomen. HISTORY: Study to evaluate feeding tube | | positionCOMPARISON: Chest Xray dated 03/19/2017.FINDINGS AND IMPRESSION:Feeding tube is | | seen in the stomach with the tip in the proximal gastric body.Peterson Олег catheter in | | place.Limited evaluation of the lungs as technique was tailored for feeding tube.I have | | personally reviewed the images and, if necessary, edited the report. I agree with the | | report as now presented. | | | |Feeding tube is seen in the stomach with the tip in the proximal gastric body. | |Peterson Олег catheter in place. | |Limited evaluation [...] | | + +---------+ + + | [facility] | | | | | [...] [facility] | [address] | [place], [place] | | | JULIANN S[facility]VA [facility] | [address] | [address] | | | TESTS | | | [...] [facility] | [address] | [place], [place] | | | [facility] | [address] | [address] | | | TESTS | | | [...] + + | [facility] | [address] | [place], [place] | | | JUL[facility]ANN S[facility] | [address] | [address] | | | TESTS | | | [...] [place] | [address] | [place], [place] | | | JULIANN SILVA [facility] | [address] | [address] | | | TESTS | | | [...] [facility] | [address] | [place], [place] | | | [facility] | [address] | [address] | | | TESTS | | | [...] + | [facility] | [address] | [place] [address] | | | ARASH, ИРИНА | TABITHA [...] + + | [facility] | [address] | [place] [address] | | | SERVICES, CORE | PARK [...] + + + + + | [facility] | [address] | [place] [address] | | | SERVICES, CORE | TABITHA [...] [place] | [address] | [place], [place] | | | JULIANN SILVA [facility]ARE | [address] | [address] | | | TESTS | | | [...] Note | + + | Service Account, Circular In Interface - 03/20/2017 10:12 AM PDT [...] [place] | [address] | [place], [place] | | | CHRISTIE SILVA [facility] | [facility] | [address] | | | TESTS | | | [...] [facility] | [address] | [place], [place] | | | JULIANN [facility] | [facility] | [address] | | | TESTS | | | [...] [facility] | [address] | [place], [place] | | | [facility] | [address] | [address] | | | TESTS | | | [...] [place] | [address] | [place], [place] | | | [facility]UL[facility] | [facility] | [address] | | | TESTS | | | [...] [facility] | [address] | [place] [address] | | | SERVICES, CORE | TABITHA [...] | + + + + + | [facility] | [address] | [place] [address] | | | SERVICES, CORE | [address] | | | + + + + + MAGNESIUM, PLASMA (03/20/2017 1:00 AM PDT) + +---------+ + + + | Component | Value | Ref Range | Performed | Pathologist | | | | | At | Signature | + +---------+ + + + | MAGNESIUM,P | 2.7 (H) | 1.8 - 2.5 mg/dL | [facility] | | | L[facility] | | [...] + + + + + | [facility] | [address] | [place] [address] | | | SERVICES, CORE | PARK [...] [facility] | [address] | [place] [address] | | | SERVICES, CORE | TABITHA [...] | | | LABORATORY | | | [place] | | | SERVICES, | | | [...] + | [facility] | [address] | [place] [address] | | | ARASH, ИРИНА | TABITHA [...] [facility] | [address] | [place], [place] | | | [place], POINT OF CARE | [address] | [address] | | | TESTS | | | [...] [place] | [address] | [place], [place] | | | JULIANN [facility] | [address] | [address] | | | TESTS | | | [...] [facility] | [address] | [place] [address] | | | SERVICES, CORE | TABITHA [...] [facility] | [address] | [place], [place] | | | JULIANN SILVA [facility]ARE | [address] | [address] | | | TESTS | | | [...] [facility] | [address] | [place], [place] | | | [facility] | [address] | [address] | | | TESTS | | | [...] + + + + + | [facility] | [address] | [place] [address] | | | SERVICES, CORE | TABITHA [...] (H) | 70 - 99 mg/dL | [facility] - | | | GLUCOSE, | [...] [facility] | [address] | [place], [place] | | | J[facility] | [facility] | [address] | | | TESTS | | | [...] + + + + + | [facility] | [address] | [place] [address] | | | SERVICES, CORE | TABITHA [...] [facility] | [address] | [place], [place] | | | [facility] | [facility] | [address] | | | TESTS | | | [...] + + + + + | [facility] | [address] | [place] [address] | | | SERVICES, CORE | PARK [...] + + + + + | [facility] | [address] | [place] [address] | | | ИРИНА ANTOINE | TABITHA [...] (H) | 70 - 99 mg/dL | [facility] - | | | GLUCOSE, | [...] [facility] | [address] | [place], [place] | | | [facility] | [address] | [address] | | | TESTS | | | [...] | 118 (L) | >300 mmHg | [facility] | | | RATIO | | | [...] + + + + + | [facility] | [address] | [place] [address] | | | ARASH, ИРИНА | TABITHA [...] [facility] | [address] | [place] [address] | | | SERVICES, CORE [...] [facility] | [address] | [place] [address] | | | ARASH, ИРИНА | PARK [...] + + + + + | [facility] | [address] | [place] [address] | | | SERVICES, CORE | TABITHA [...] (H) | 70 - 99 mg/dL | [facility] | | | GLUCOSE, | [...] [facility] | [address] | [place], [place] | | | JULIANN SILVA OF [facility] | [address] | [address] | | | TESTS | | | [...] [facility] | [address] | [place], [place] | | | [facility] | [address] | [address] | | | TESTS | | | [...] [facility]NA [facility] | [address] | [place], [place] | | | [facility] | [address] | [address] | | | TESTS | | | [...] [facility] | [address] | [place] [address] | | | SERVICES, CORE | TABITHA [...] [facility] | [address] | [place], [place] | | | CARDIOLOGY | [address] | [address] | | + + + + + [...] [facility] | [address] | [place], [place] | | | JULIANN SILVA OF CARE | [address] | [address] | | | TESTS | | | | + + + + + NV-RU-ASX-HB,POC RT (03/19/2017 1:04 PM PDT) + + [...] [facility] | [address] | [place], [place] | | | JULIANN SILVA [facility] CARE | [address] | [address] | | | TESTS | | | [...] + + + + | PRODUCT | [id number] | | [facility] | | | UNIT [...] + + + + | EXPIRATION | [id number] | | [facility] | | | DATE [...] + + + + | BLOOD | [id number] | | [facility] | | | PRODUCT [...] [facility] | [address] | [place] [address] | | | SERVICES, | [address] [...] + + + + | PRODUCT | [id number] | | [facility] | | | UNIT [...] + + + + | EXPIRATION | [id number] | | [facility] | | | DATE [...] + + + + | BLOOD | [id number] | | [facility] | | | PRODUCT [...] [facility] | [address] | [place] [address] | | | SERVICES, | [address] [...] + + + + | PRODUCT | [id number] | | [facility] | | | UNIT [...] + + + + | EXPIRATION | [id number] | | [facility] | | | DATE [...] + + + + | BLOOD | [id number] | | [facility] | | | PRODUCT [...] [facility]ORAT[facility] | [address] | [place] [address] | | | SERVICES, | [address] [...] + + + + | PRODUCT | [id number] | | [facility] | | | UNIT [...] + + + + | EXPIRATION | [id number] | | [facility] | | | DATE [...] + + + + | BLOOD | [id number] | | [facility] | | | PRODUCT [...] [facility] | [address] | [place] [address] | | | SERVICES, | [address] [...] + | [facility] | [address] [facility] | [place] [address] | | | SERVICES, CORE | TABITHA [...] | | | LABORATORY | | | [place] | | | SERVICES, | | | [...] [facility] | [address] | [place] [address] | | | ARASH, ИРИНА | PARK [...] + | [facility] | [address] | [place] [address] | | | SERVICES, CORE | PARK [...] [facility] | [address] | [place] [address] | | | SERVICES, CORE | TABITHA [...] GISELL Preston PhD [place] [address] [id number] [place], | | | [place] [address] | | + + + ABG-FULL ABL, POC (03/19/2017 12:14 PM PDT) + + + + + + | Component | Value | Ref Range | Performed | Pathologist | | | | | At | Signature | + + + + + + | PH | 7.42 | 7.37 - 7.44 | [facility] - | | | ARTERIAL, | [...] - [facility] | [address] | [place], [place] | | | J[facility] S[facility] | [address] | [address] | | | TESTS | | | [...] ANA [facility] | [address] | [place], [place] | | | JUL[facility]ANN SILVA [facility] | [facility] | [address] | | | TESTS | | | | + + + + + RL-IT-RNN-HB,POC RT (03/19/2017 10:24 AM PDT) + + [...] - [facility] | [address] | [place], [place] | | | JULIANN SIL[facility] | [address] | [address] | | | TESTS | | | [...] [facility] | [address] | [place], [place] | | | [facility] | [address] | [address] | | | TESTS | | | | + + + + + XT-RK-ULI-HB,POC RT (03/19/2017 10:06 AM PDT) + + [...] + + + | [facility] | [address] | [place], [place] | | | [facility] | [address] | [address] | | | TESTS | | | | + + + + + ZH-BO-WUW-KARY ISIDRO RT (03/19/2017 9:51 AM PDT) + [...] [facility] | [address] | [place], [place] | | | JUL[facility]ANN [facility] | [address] | [address] | | | TESTS | | | [...] + + + + | PRODUCT | [id number] | | [facility] | | | UNIT [...] + + + + | EXPIRATION | [id number] | | [facility] | | | DATE [...] + + + + | BLOOD | [id number] | | [facility] | | | PRODUCT [...] [facility] | [address] | [place] [address] | | | SERVICES, | [address] [...] + + + + | PRODUCT | [id number] | | [facility] | | | UNIT [...] + + + + | EXPIRATION | [id number] | | [facility] | | | DATE [...] + + + + | BLOOD | [id number] | | [facility] | | | PRODUCT [...] [facility] | [address] | [place] [address] | | | SERVICES, | [address] [...] + + + + | PRODUCT | [id number] | | [facility] | | | UNIT [...] + + + + | EXPIRATION | [id number] | | [facility] | | | DATE [...] + + + + | BLOOD | [id number] | | [facility] | | | PRODUCT [...] [facility] | [address] | [place] [address] | | | SERVICES, | [address] [...] + + + + | PRODUCT | [id number] | | [facility] | | | UNIT [...] + + + + | EXPIRATION | [id number] | | [facility] | | | DATE [...] + + + + | BLOOD | [id number] | | [facility] | | | PRODUCT [...] [facility] | [address] | [place] [address] | | | SERVICES, | [address] [...] Endotracheal | RADIOLOGY VOICE | | tube, Peterson-Олег catheter and enteric tube remain in place. [...] Note | + + | Service Account, Circular In Interface - 03/19/2017 9:17 AM PDT EXAM: [facility] CHEST 1 | | VIEW HISTORY: ECMO. Evaluate cannula placement.COMPARISON: YesterdayFINDINGS: | | Endotracheal tube, Peterson-Олег catheter and enteric tube remain in place. [...] - [facility] | [address] | [place], [place] | | | JULIANN SILVA [facility] CARE | [address] | [address] | | | TESTS | | | [...] [facility] | [address] | [place], [place] | | | JULIANN SIL[facility] CARE | [address] | [address] | | | TESTS | | | [...] [facility] | [address] | [place] [address] | | | SERVICES, CORE | PARK [...] - [facility] | [address] | [place], [place] | | | [facility] | [address] | [address] | | | TESTS | | | [...] (H) | 70 - 99 mg/dL | [facility] | | | GLUCOSE, | [...] + + + | [facility] | [address] | [place], [place] | | | [facility] | [address] | [address] | | | TESTS | | | [...] [facility] | [address] | [place], [place] | | | JULIANN SILVA [facility] | [facility] | [address] | | | TESTS | | | [...] [facility] | [address] | [place], [place] | | | [facility] | [address] | [address] | | | TESTS | | | [...] + + + + + | [facility] | [address] | [place] [address] | | | SERVICES, CORE | TABITHA [...] (H) | 70 - 99 mg/dL | [facility] | | | GLUCOSE, | [...] [facility] | [address] | [place], [place] | | | JULIANN S[facility]VA [facility] | [facility] | [address] | | | TESTS | | | [...] [facility] | [address] | [place], [place] | | | J[facility]ANN S[facility] | [address] | [address] | | | TESTS | | | [...] (H) | 70 - 99 mg/dL | [facility] - | | | GLUCOSE, | [...] [facility] | [address] | [place], [place] | | | [facility] | [address] | [address] | | | TESTS | | | [...] + + + + + | [facility] | [address] [facility] | [place] [address] | | | ARASH, ИРИНА | TABITHA [...] [facility] | [address] | [place], [place] | | | [facility] | [facility] | [address] | | | TESTS | | | [...] [facility] | [address] | [place] [address] | | | SERVICES, CORE | PARK [...] + + + + + | [facility] | [address] | [place] [address] | | | SERVICES, CORE | [address] | | | + + + + + MAGNESIUM, PLASMA (03/19/2017 1:11 AM PDT) + +---------+ + + + | Component | Value | Ref Range | Performed | Pathologist | | | | | At | Signature | + +---------+ + + + | MAGNESIUM,P | 2.6 (H) | 1.8 - 2.5 mg/dL | PAM[facility] [...] + + + + + | [facility] | [address] | [place] [address] | | | SERVICES, CORE | TABITHA [...] [facility] | [address] | [place] [address] | | | SERVICES, CORE | TABITHA [...] [facility] | [address] | [place] [address] | | | SERVICES, CORE | PARK [...] [facility] | [address] | [place] [address] | | | ARASH, ИРИНА | TABITHA [...] | | | LABORATORY | | | [place] | | | SERVICES, | | | [...] + | [facility] | [address] [facility] | [place] [address] | | | SERVICES, CORE | TABITHA [...] [facility] | [address] | [place] [address] | | | SERVICES, CORE | PARK [...] + + + + + | [facility] | [address] [facility] | [place] [address] | | | SERVICES, CORE | PARK [...] (H) | 70 - 99 mg/dL | [facility] | | | GLUCOSE, | [...] [facility] | [address] | [place], [place] | | | JULIANN SILVA [facility] | [facility] | [address] | | | TESTS | | | [...] + + + + + | [facility] | [address] | [place] [address] | | | SERVICES, CORE | TABITHA [...] [facility] | [address] | [place], [place] | | | [facility] | [address] | [address] | | | TESTS | | | [...] [facility] | [address] | [place], [place] | | | [facility] | [address] | [address] | | | TESTS | | | [...] + + + + + | [facility] | [address] | [place] [address] | | | SERVICES, CORE | TABITHA [...] (H) | 70 - 99 mg/dL | [facility] | | | GLUCOSE, | [...] [facility] | [address] | [place], [place] | | | [facility] | [address] | [address] | | | TESTS | | | [...] [facility] | [address] | [place], [place] | | | JULIANN SIL[facility]ARE | [address] | [address] | | | TESTS | | | [...] ANA [facility] | [address] | [place], [place] | | | [facility] | [address] | [address] | | | TESTS | | | [...] [facility] | [address] | [place] [address] | | | SERVICES, CORE | PARK [...] + + + + + | [facility] | [address] | [place] [address] | | | SERVICES, CORE | TABITHA [...] (H) | 70 - 99 mg/dL | [facility] - | | | GLUCOSE, | [...] [facility] | [address] | [place], [place] | | | JULIANN S[facility]VA [facility] | [address] | [address] | | | TESTS | | | [...] | + + + + + | [facility] [facility] | [address] | [place] [address] | | | SERVICES, ИРИНА | TABITHA [...] MAR[facility] | [address] | [place], [place] | | | JULIANN SILVA [facility] CARE | [facility] | [address] | | | TESTS | | | [...] (H) | 70 - 99 mg/dL | [facility] | | | GLUCOSE, | [...] [facility] | [address] | [place], [place] | | | JULIANN SILVA [facility] CARE | [facility] | [address] | | | TESTS | | | [...] + + + + + | [facility] | [address] | [place] [address] | | | SERVICES, CORE | PARK [...] [facility] | [address] | [place] [address] | | | ARASH, ИРИНА | TABITHA [...] [facility] | [address] | [place], [place] | | | [facility] | [address] | [address] | | | TESTS | | | [...] ANA [facility] | [address] | [place], [place] | | | [place] [facility] | [address] | [address] | | | TESTS | | | [...] [facility] | [address] | [place] [address] | | | SERVICES, CORE | PARK [...] + + + + + | [facility] | [address] | [place] [address] | | | SERVICES, CORE | PARK [...] [facility] | [address] | [place] [address] | | | SERVICES, CORE | PARK [...] [facility] | [address] | [place] [address] | | | SERVICES, CORE | TABITHA [...] | | | LABORATORY | | | [place] | | | SERVICES, | | | [...] [facility] | [address] | [place] [address] | | | SERVICES, CORE | TABITHA [...] + + + + + | [facility] | [address] | [place] [address] | | | SERVICES, CORE | TABITHA [...] + + + + + | [facility] | [address] | [place] [address] | | | ARASH, ИРИНА | TABITHA [...] [facility] | [address] | [place] [address] | | | SERVICES, CORE | PARK [...] [facility] | [address] | [place], [place] | | | [facility] PO[facility]ARE | [address] | [address] | | | TESTS | | | [...] [facility] | [address] | [place], [place] | | | [facility] PO[facility] | [address] | [address] | | | TESTS | | | [...] [facility] | [address] | [place] [address] | | | SERVICES, CORE | PARK [...] [facility] | [address] | [place], [place] | | | [facility] | [address] | [address] | | | TESTS | | | [...] [facility] | [address] | [place] [address] | | | SERVICES, CORE [...] | + + + + + | [facility] | [address] | [place] [address] | | | SERVICES, CORE | PARK [...] | + + + + + | [facility] | [address] | [place] [address] | | | [facility] | | | | + + + [...] [facility] | [address] | [place], [place] | | | [facility] PO[facility] | [address] | [address] | | | TESTS | | | [...] [facility] | [address] | [place], [place] | | | JULIANN S[facility] | [address] | [address] | | | TESTS | | | [...] [facility] | [address] | [place] [address] | | | SERVICES, ИРИНА | TABITHA [...] [facility] | [address] | [place] [address] | | | ARASH, ИРИНА | TABITHA [...] (H) | 70 - 99 mg/dL | [facility] | | | GLUCOSE, | [...] [facility] | [address] | [place], [place] | | | JULIANN SILVA [facility] | [facility] | [address] | | | TESTS | | | [...] [facility] | [address] | [place], [place] | | | JUL[facility]ANN S[facility] | [address] | [address] | | | TESTS | | | [...] jefferson. Enteric tube tip in the stomach. Peterson-Олег | RECOGNITION | | catheter tip projects [...] Note | + + | Service Account, Circular In Interface - 03/18/2017 8:39 AM PDT EXAM: [facility] CHEST 1 | | VIEW HISTORY: ECMO. Evaluate cannula placement.COMPARISON: YesterdayFINDINGS: | | Endotracheal tube tip is 2.5 cm above the jefferson. Enteric tube tip in the stomach. | | Peterson-Олег catheter tip projects in the main pulmonary [...] [facility] | [address] | [place], [place] | | | [facility] | [address] | [address] | | | TESTS | | | [...] [facility] | [address] | [place], [place] | | | [facility] | [facility] | [address] | | | TESTS | | | [...] [facility] | [address] | [place] [address] | | | SERVICES, CORE | TABITHA [...] [facility] | [address] | [place], [place] | | | JULIANN S[facility]VA [facility] | [address] | [address] | | | TESTS | | | [...] ANA [facility] | [address] | [place], [place] | | | [facility] | [address] | [address] | | | TESTS | | | [...] [facility] | [address] | [place] [address] | | | SERVICES, | [address] [...] [facility] | [address] | [place] [address] | | | SERVICES, | [address] [...] + + + + | PRODUCT | [id number] | | [facility] | | | UNIT [...] + + + + | EXPIRATION | [id number] | | [facility] | | | DATE [...] + + + + | BLOOD | [id number] | | [facility] | | | PRODUCT [...] [facility] | [address] | [place] [address] | | | SERVICES, | [address] [...] [facility] | [address] | [place], [place] | | | JULIANN SILVA OF CARE | [address] | [address] | | | TESTS | | | [...] [facility] | [address] | [place] [address] | | | SERVICES, CORE | TABITHA [...] + + | [facility] | [address] [facility] | [place] [address] | | | SERVICES, ИРИНА | TABITHA [...] | + + + + + | [facility] | [address] | [place] [address] | | | SERVICES, CORE | PARK [...] [facility] | [address] | [place] [address] | | | SERVICES, CORE | PARK [...] | | | LABORATORY | | | [place] | | | SERVICES, | | | [...] [facility] | [address] | [place] [address] | | | SERVICES, ИРИНА | TABITH[address] [...] + + + + + | [facility] | [address] | [place] [address] | | | SERVICES, CORE | PARK [...] [facility] | [address] | [place] [address] | | | SERVICES, CORE | TABITHA [...] [facility] | [address] | [place] [address] | | | SERVICES, CORE | TABITHA [...] [facility] | [address] | [place], [place] | | | [facility] | [facility] | [address] | | | TESTS | | | [...] [facility] | [address] | [place] [address] | | | SERVICES, CORE | TABITHA [...] [facility] | [address] | [place] [address] | | | ИРИНА ANTOINE | TABITHA [...] ANA [facility] | [address] | [place], [place] | | | J[facility] S[facility] C[facility] | [facility] | [address] | | | TESTS | | | [...] (H) | 60 - 99 mg/dL | [facility] | | | GLUCOSE, | [...] [facility] | [address] | [place], [place] | | | [facility] | [facility] | [address] | | | TESTS | | | [...] [facility] | [address] | [place], [place] | | | J[facility] | [address] | [address] | | | TESTS | | | [...] [facility] | [address] | [place], [place] | | | J[facility] S[facility] | [address] | [address] | | | TESTS | | | [...] + + + + + | [facility] | [address] | [place] [address] | | | SERVICES, CORE | TABITHA [...] (H) | 60 - 99 mg/dL | [facility] | | | GLUCOSE, | [...] [facility] | [address] | [place], [place] | | | [facility] | [address] | [address] | | | TESTS | | | [...] | | | LABORATORY | | | РИИНА ANTOINE | + + + + + + + + | Performing | Address | City/State/Zipcode | Phone Number | | Organization | | | | + + + + + | [facility] | [address] | [place] [address] | | | SERVICES, ИРИНА | PARK [...] [facility] | [address] | [place] [address] | | | ИРИНА ANTOINE | PARK [...] [facility] | [address] | [place] [address] | | | SERVICES, CORE | PARK [...] [facility] | [address] | [place] [address] | | | SERVICES, CORE | TABITHA [...] + + + + + | [facility] | [address] | [place] [address] | | | SERVICES, CORE | PARK [...] [facility] | [address] | [place], [place] | | | [facility] | [facility] | [address] | | | TESTS | | | [...] (H) | 60 - 99 mg/dL | [facility] | | | GLUCOSE, | [...] [facility] | [address] | [place], [place] | | | [facility] | [address] | [address] | | | TESTS | | | [...] | 58 (L) | >300 mmHg | [facility] | | | RATIO | | [...] + + + + + | [facility] | [address] | [place] [address] | | | SERVICES, CORE | PARK [...] [facility] | [address] | [place], [place] | | | [facility] | [facility] | [address] | | | TESTS | | | [...] [facility] | [address] | [place], [place] | | | [facility] | [address] | [address] | | | TESTS | | | [...] + + + + | PRODUCT | [id number] | | [facility] | | | UNIT [...] + + + + | EXPIRATION | [id number] | | [facility] | | | DATE [...] + + + + | BLOOD | [id number] | | [facility] | | | PRODUCT [...] + + + + + | [facility] | [address] | [place] [address] | | | SERVICES, | [address] [...] + + + + | PRODUCT | [id number] | | [facility] | | | UNIT [...] + + + + | EXPIRATION | [id number] | | [facility] | | | DATE [...] + + + + | BLOOD | [id number] | | [facility] | | | PRODUCT [...] | + + + + + | [facility] | [address] | [place] [address] | | | SERVICES, | [address] [...] [facility] | [address] | [place], [place] | | | JULIANN SILVA OF CARE | [address] | [address] | | | TESTS | | | [...] [facility] | [address] | [place] [address] | | | SERVICES, CORE | PARK [...] [facility] | [address] | [place] [address] | | | SERVICES, CORE | PARK [...] [facility] | [address] | [place] [address] | | | SERVICES, CORE | PARK [...] [facility] | [address] | [place] [address] | | | SERVICES, CORE | TABITHA [...] | | | LABORATORY | | | [place] | | | SERVICES, | | | [...] [facility] | [address] | [place] [address] | | | SERVICES, CORE | PARK [...] [facility] | [address] | [place] [address] | | | SERVICES, CORE | TABITHA [...] [facility] | [address] | [place] [address] | | | SERVICES, CORE | TABITHA [...] | 115 (L) | >300 mmHg | [facility] | | | RATIO | | | [...] + + + + + | [facility] | [address] | [place] [address] | | | ARASH, ИРИНА | PARK [...] [facility] | [address] | [place], [place] | | | [facility]ARE | [address] | [address] | | | TESTS | | | [...] + + + + + | [facility] | [address] | [place] [address] | | | SERVICES, CORE | TABITHA [...] [facility] | [address] | [place], [place] | | | [facility] OF CARE | [address] | [address] | | | TESTS | | | [...] Note | + + | Service Account, Circular In Interface - 03/17/2017 6:18 PM PDT [...] Note | + + | Service Account, Circular In Interface - 03/17/2017 6:17 PM PDT [...] [facility] | [address] | [place], [place] | | | [facility] CARE | [address] | [address] | | | TESTS | | | [...] + + + + + | [facility] | [address] | [place] [address] | | | SERVICES, CORE | TABITHA [...] | EJECTION | 22.5 | % | [facility] | | | FRACTION | | | OF | | | [facility] | | | CARDIOLOGY | | | VALUE | | | | | + + + + + + + + | Specimen | + + | | + + + + -------+ | Narrative | Performed At | + + -------+ | [facility] | [facility] | | [facility] | CARDIOLOG Y | | [place] [address] [address] | | | [place] [address] Pt Name: | | | RON MCKEON Study Date/Time 03/17/2017 / 10:30:26 | | | AMMRN: [id number] Most recent | | | prior: 03/15/2017Acc #: [id number] No. | | | previous echos: 1DOB: 1955 61 years Heart | | | Rate: 139 bpmHeight: 69.0 | | | in Blood Pressure: 133/83 | | | mm/HgWeight: 258.0 | | | lb Gender: | | | MBSA: 2.30 m2 Order | | | ID: [id number] Gis Specialist: Mauri Domingo [facility] | | | Referring Provider: Mellisa Rubalcava [facility] | | | Performed: Limited 2D, Color Doppler and Spectral Doppler | | | Limited.Study Quality: Fair.Exam Indication: Heart failure; ECMO; s/p | | | STEMIHistory: 61 year old male with a past medical history significant | | | for hypertension, hyperlipidemia, ongoing tobacco use and | | | pre-diabetes who is transferred to [facility] with cardiogenic shock in the | [...] | | | Report electronically signed by: [id number] Jen Ovalle MD, PhD | | | (03/17/2017, 1:53:40 PM) Final | | | | | |Report electronically signed by: [id number] Jen Ovalle MD, PhD (03/17/2017, | | |1:53:40 PM) | | | | | | | | | | | | Final | | + + -------+ + + | Procedure Note | + + | Interface, Cardiology Results - 03/17/2017 1:53 PM [facility] [employer] | | [facility] [address] [place] [address] | | [place], [place] [address] Pt Name: RON MCKEON Study Date/Time 03/17/2017 / 10:30:26 AMMRN: [id number] Most | | recent prior: 03/15/2017Acc #: [id number] No. previous echos: 1DOB: | | 1955 61 years Heart Rate: 139 bpmHeight: 69.0 in Blood | | Pressure: 133/83 mm/HgWeight: 258.0 lb Gender: MBSA: | | 2.30 m2 Order ID: [id number] Gis Specialist: Mauri Domingo | | RDCSReferring Provider: Mellisa Rubalcava Location: [facility] Performed: | | Limited 2D, Color Doppler and Spectral Doppler Limited.Study Quality: Fair.Exam | | Indication: Heart failure; ECMO; s/p STEMIHistory: 61 year old male with a past medical | | history significant for hypertension, hyperlipidemia, ongoing tobacco use and | | pre-diabetes who is transferred to [facility] with cardiogenic shock in the setting [...] | | Scoring: Report electronically signed by: [id number] Jen Ovalle MD, PhD (03/17/2017, | | [...] | | | |Report electronically signed by: [id number] Jen Ovalle MD, PhD (03/17/2017, | |1:53:40 PM) | | | | | | | | Final | + + + + + + + | Performing | Address | City/State/Zipcode | Phone Number | | Organization | | | | + + + + + | [facility] | [address] | [place], [place] | | | CARDIOLOGY | [address] | [address] | | + + + + + [...] [facility] | [address] | [place], [place] | | | [facility] CARE | [address] | [address] | | | TESTS | | | [...] [facility] | [address] | [place], [place] | | | RICARDO POINT OF CARE | [address] | [address] | | | TESTS | | | [...] [facility] | [address] | [place] [address] | | | SERVICES, CORE | PARK [...] [facility] | [address] | [place] [address] | | | SERVICES, CORE | PARK [...] [facility] | [address] | [place] [address] | | | SERVICES, ИРИНА | TABITHA [...] [facility] | [address] | [place], [place] | | | RICARDO POINT OF CARE | [facility] | [address] | | | TESTS | | | [...] - [facility] | [address] | [place], [place] | | | RICARDO POINT OF CARE | [address] | [address] | | | TESTS | | | [...] + + + | [facility] | [address] | [place], [place] | | | RICARDO POINT OF [facility] | [address] | [address] | | | TESTS | | | [...] [facility] | [address] | [place] [address] | | | SERVICES, CORE | TABITHA [...] + + + + + | [facility] | [address] | [place] [address] | | | SERVICES, CORE | TABITHA [...] | + + | Service Account, Arely [facility] In Interface - 03/17/2017 9:44 AM PDT [...] [facility] | [address] | [place], [place] | | | JULIANN ISLVA OF CARE | [address] | [address] | | | TESTS | | | [...] [facility] | [address] | [place] [address] | | | SERVICESИРИНА | [address] [...] | | | LABORATORY | | | [place] | | | SERVICES, | | | [...] [facility] | [address] | [place] [address] | | | SERVICES, ИРИНА | TABITHA [...] + + + + + | [facility] | [address] | [place] [id number] | | | ИРИНА ANTOINE | TABITHA [...] [facility] | [address] | [place], [place] | | | JULIANN SILVA OF CARE | [address] | [address] | | | TESTS | | | [...] + + + + + | [facility] | [address] | [place] [address] | | | SERVICES, CORE | PARK [...] + | [facility] | [address] [facility] | [place] [address] | | | SERVICES, CORE | TABITHA [...] [facility] | [address] | [place] [address] | | | SERVICES, CORE | TABITHA [...] + + + + + | [facility] | [address] | [place] [address] | | | ARASH, ИРИНА | PARK [...] [facility] | [address] | [place] [address] | | | SERVICES, CORE | PARK [...] [facility] | [address] | [place] [address] | | | SERVICES, CORE | PARK [...] [facility] | [address] | [place] [address] | | | SERVICES, CORE | PARK [...] [facility] | [address] | [place] [address] | | | SERVICES, CORE | TABITHA [...] + + + + + | [facility] | [address] | [place] [address] | | | SERVICES, CORE | PARK [...] [facility] | [address] | [place] [address] | | | SERVICES, CORE | TABITHA [...] DEPT OF | [address] | [place], [place] | | | CARDIOLOGY | [address] | [address] | | + + + + + TA-KJ-BNG-HB,POC RT (03/17/2017 12:44 AM PDT) + + [...] [facility] | [address] | [place], [place] | | | RICARDO POINT OF CARE | [address] | [address] | | | TESTS | | | [...] MARRANDIAM | [address] | [place], [place] | | | JULIANN SILVA OF CARE | [facility] | [address] | | | TESTS | | | [...] [facility] | [address] | [place], [place] | | | JULIANN SILVA OF CARE | [address] | [address] | | | TESTS | | | [...] [facility] | [address] | [place] [address] | | | SERVICES, ИРИНА | TABITHA [...] [facility] | [address] | [place], [place] | | | RICARDO POINT OF CARE | [address] | [address] | | | TESTS | | | [...] ANA MARIA | [address] | [place], [place] | | | RICARDO POINT OF CARE | [address] | [address] | | | TESTS | | | [...] [facility] | [address] | [place] [address] | | | SERVICES, CORE | TABITHA [...] MARIA | [address] | [place], [place] | | | JULIANN SILVA OF [place] | [address] | [address] | | | TESTS | | | [...] + + + + + | [facility] | [address] | [place] [address] | | | ИРИНА ANTOINE | TABITHA [...] (H) | 60 - 99 mg/dL | [facility] - | | | GLUCOSE, | [...] MARIA | [address] | [place], [place] | | | RICARDO POINT OF CARE | [address] | [address] | | | TESTS | | | [...] MARIA | [address] | [place], [place] | | | JULIANN SILVA OF [place] | [facility] | [address] | | | TESTS | | | [...] | pause verifies correct patient, procedure, equipment, operations support analyst | | | and site/side [...] + + | [facility] | [address] | [place] [address] | | | SERVICES, CORE | PARK [...] [facility] | [address] | [place] [address] | | | SERVICES, CORE | PARK [...] [facility] | [address] | [place] [address] | | | SERVICES, CORE | PARK [...] [facility] | [address] | [place] [address] | | | SERVICES, CORE | PARK [...] | | | LABORATORY | | | [place] | | | SERVICES, | | | [...] [facility] | [address] | [place] [address] | | | SERVICES, CORE | TABITHA [...] [facility] | [address] | [place] [address] | | | SERVICES, CORE | PARK [...] + + + + + | [facility] | [address] | [place] [address] | | | SERVICES, CORE | TABITHA [...] [facility] | [address] | [place], [place] | | | JULIANN SILVA OF [place] | [address] | [address] | | | TESTS | | | [...] MARIA | [address] | [place], [place] | | | JULIANN SILVA OF [place] | [facility] | [address] | | | TESTS | | | | + + + + + CAPILLARY BLOOD GLUCOSE (NO CHG), POC (03/16/2017 1:16 PM PDT) + +-------+ + + + | Component | Value | Ref Range | Performed | Pathologist | | | | | At | Signature | + +-------+ + + + | BLOOD | 90 | 60 - 99 mg/dL | [facility] - | | | GLUCOSE, | [...] N[facility]OSKA[facility] | [address] | [place], [place] | | | RICARDO POINT OF CARE | [address] | [address] | | | TESTS | | | [...] [facility] | [address] | [place], [place] | | | GURINDER SILVA | [facility] | [address] | | | TESTS | | | [...] + | [facility] | [address] [facility] | [place] [address] | | | SERVICES, ИРИНА | TABITHA [...] | | | LABORATORY | | | [place] | | | SERVICES, | | | [...] + + + + + | [facility] | [address] | [place] [address] | | | SERVICES, CORE | TABITHA [...] (H) | 60 - 99 mg/dL | [facility] - | | | GLUCOSE, | [...] MARIA | [address] | [place], [place] | | | GURINDER SILVA | [facility] | [address] | | | TESTS | | | [...] + + + + + | [facility] | [address] | [place] [address] | | | ИРИНА ANTOINE | TABITHA [...] [facility] | [address] | [place], [place] | | | JULIANN SILVA OF CARE | [facility] | [address] | | | TESTS | | | | + + + + + OPERATION RECORD (03/16/2017 9:30 AM PDT) + + | Procedure Note | + + | Dale Mak MD - 03/15/2017 3:42 PM PDT Date of Service: 03/15/2017 Attending | | Surgeon:Ron Powell MD. 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 | | Preoperative Diagnoses: 1.Cardiogenic [...] The | | patient was transferred to [facility] for further management. At [facility], the patient continued | | to [...] cannulation with micropuncture | | wire. A 7-Portuguese sheath was placed in an antegrade direction down the SFA for distal | | perfusion. A 19-Portuguese arterial cannula was placed in a retrograde [...] 03/15/2017 15:23:00DT: 03/15/2017 15:42:27Job #: | | [id number] | | | |A 19-Portuguese arterial cannula was placed in a retrograde [...] |HS/MODL | | | | | | /[id number] | + + CBC (HEMOGRAM) ONLY (03/16/2017 [...] [facility] | [address] | [place] [address] | | | SERVICES, CORE | PARK [...] [facility] | [address] | [place] [address] | | | SERVICES, CORE | PARK [...] | + + + + + | [employer] | [address] | [place] [address] | | | SERVICES, CORE | TABITHA [...] [facility] | [address] | [place], [place] | | | JULIANN SILVA OF [place] | [address] | [address] | | | TESTS | | | [...] [facility] | [address] | [place], [place] | | | JULIANN SILVA OF CARE | [facility] | [address] | | | TESTS | | | [...] [facility] | [address] | [place], [place] | | | RICARDO POINT OF CARE | [address] | [address] | | | TESTS | | | [...] Endotracheal | RADIOLOGY VOICE | | tube, Peterson-Олег catheter and enteric tube remain in place. [...] Note | + + | Service Account, Circular In Interface - 03/16/2017 8:27 AM PDT EXAM: [facility] CHEST 1 | | VIEW HISTORY: Evaluate cannula placement. heart failure.COMPARISON: YesterdayFINDINGS: | | Endotracheal tube, Peterson-Олег catheter and enteric tube remain in place. [...] MAR[facility] | [address] | [place], [place] | | | RICARDO POINT OF CARE | [address] | [address] | | | TESTS | | | [...] (H) | 60 - 99 mg/dL | [facility] - | | | GLUCOSE, | [...] [facility] | [address] | [place], [place] | | | JULIANN SILVA OF [facility] | [facility] | [address] | | | TESTS | | | | + + + + + YZ-YG-GYM-KARY ISIDRO RT (03/16/2017 3:42 AM PDT) + [...] [facility] | [address] | [place], [place] | | | JULIANN SILVA OF [place] | [address] | [address] | | | TESTS | | | [...] [facility] | [address] | [place], [place] | | | RICARDO POINT OF CARE | [address] | [address] | | | TESTS | | | [...] [facility] | [address] | [place] [address] | | | SERVICES, CORE | TABITHA [...] [facility] | [address] | [place], [place] | | | JULIANN SILVA OF [place] | [address] | [address] | | | TESTS | | | [...] + + + + + | [facility] | [address] | [place] [address] | | | SERVICES, ИРИНА | TABITHA [...] [facility] | [address] | [place] [address] | | | SERVICES, CORE | PARK [...] | | | LABORATORY | | | [place] | | | SERVICES, | | | [...] + + + + + | [facility] | [address] | [place] [address] | | | SERVICES, CORE | TABITHA [...] [facility] | [address] | [place] [address] | | | SERVICES, CORE | PARK [...] + + + + + | [facility] | [address] | [place] [address] | | | SERVICES, CORE | PARK [...] + + + + + | [facility] | [address] | [place] [address] | | | ARASH, ИРИНА | TABITHA [...] + + + + + | [facility] | [address] | [place] [address] | | | SERVICES, CORE | TABITHA [...] (H) | 60 - 99 mg/dL | [facility] - | | | GLUCOSE, | [...] [facility] | [address] | [place], [place] | | | JULIANN SILVA OF CARE | [address] | [address] | | | TESTS | | | [...] [facility] | [address] | [place] [address] | | | SERVICES, CORE | PARK [...] [facility] | [address] | [place], [place] | | | JULIANN SILVA OF [facility] | [address] | [address] | | | TESTS | | | [...] + | [facility] | [address] [facility] | [place] [address] | | | SERVICES, CORE | TABITHA [...] | | | LABORATORY | | | [place] | | | SERVICES, | | | [...] AST CMNT | No Hemo | | [facility] | | | | | | [...] + + + + + | [facility] [employer] | [address] | [place] [address] | | | SERVICES, CORE | [address] | | | + + + + + XV-CE-OJQ-HB,POC RT (03/16/2017 12:22 AM PDT) + + [...] [facility] | [address] | [place], [place] | | | RICARDO POINT OF CARE | [address] | [address] | | | TESTS | | | [...] + + + | [facility] | [address] | [place], [place] | | | RICARDO POINT OF CARE | [address] | [address] | | | TESTS | | | [...] [facility] | [address] | [place], [place] | | | RICARDO POINT OF CARE | [address] | [address] | | | TESTS | | | [...] [facility] | [address] | [place], [place] | | | RICARDO POINT OF [facility] | [address] | [address] | | | TESTS | | | [...] | + + | Service Account, Arely [facility] In Interface - 03/16/2017 8:27 AM PDT [...] MARIA | [address] | [place], [place] | | | JULIANN SILVA OF [place] | [address] | [address] | | | TESTS | | | [...] MARIA | [address] | [place], [place] | | | RICARDO POINT OF CARE | [address] | [address] | | | TESTS | | | [...] [facility] | [address] | [place] [address] | | | SERVICES, CORE | PARK [...] [facility] | [address] | [place] [address] | | | SERVICES, CORE | PARK [...] [facility] | [address] | [place] [address] | | | SERVICES, [facility] | TABITHA ALICEA | | | + [...] | Ambubag and suction available at bedside. [facility] Mac 4 used to | | [...] [facility] | [address] | [place], [place] | | | JULIANN SILVA OF [place] | [address] | [address] | | | TESTS | | | | + + + + + CL-HI-IUE-HB,POC RT (03/15/2017 7:39 PM PDT) + + [...] [facility] | [address] | [place], [place] | | | JULIANN SILVA OF [place] | [address] | [address] | | | TESTS | | | [...] [facility] | [address] | [place], [place] | | | RICARDO POINT OF CARE | [address] | [address] | | | TESTS | | | [...] [facility] | [address] | [place], [place] | | | HILL, POINT OF CARE | [address] | [address] | | | TESTS | | | | + + + + + X-RAY PORTABLE CHEST 1 VIEW (03/15/2017 5:51 PM PDT) + + | Specimen | + + | | + + + + + | Narrative | Performed At | + + + | STUDY: VA CHEST 1 VIEW 03/15/17 17:40:08 COMPARISON: 03/15/17 at | [facility] | | 3:52 PM. HISTORY: Line [...] | | + +---------+ + + | [facility] RADIOLOGY | | | | | [...] given by: Power of | | | patent prosecution attorney Patient identity confirmed per policy: Yes Team Pause: | | | Immediatly prior to the procedure a pause per protocol was called. A | | | pause verifies correct patient, procedure, equipment, operations support analyst | | | and site/side [...] modified Seldinger technique (a | | | wyavdrbe-xchp-jth-tjrfgl-lfjy-svqf-cpbxpvw-qrr-radhrenc) was used for | | | vessel [...] Name: Ron Mckeon MRN: | | | [id number] 03/15/2017 Time: 5:26 PM Diagnosis: shock At [...] Jose Ramon Alvarado | | | R2, [facility] Emergency Medicine Personal Pager: [phone] | | | | | + + + LACTATE (03/15/2017 4:49 PM PDT) + + + + + + | Component | Value | Ref Range | Performed | Pathologist | | | | | At | Signature | + + + + + + | LACTATE | 7.5 () | mmol/L | [facility] | | | | | | [...] + + + + + | [facility] | [address] | [place] [address] | | | ИРИНА ANTOINE | TABITHA [...] (H) | 60 - 99 mg/dL | [facility] - | | | GLUCOSE, | [...] [facility] | [address] | [place], [place] | | | RICARDO POINT OF CARE | [address] | [address] | | | TESTS | | | [...] [facility] | [address] | [place], [place] | | | JULIANN SILVA OF CARE | [facility] | [address] | | | TESTS | | | [...] [facility] | | | | | | RICADRO POINT | | | | | | [...] [facility] | [address] | [place], [place] | | | RICARDO POINT OF [facility] | [address] | [address] | | | TESTS | | | [...] [facility] | [address] | [place], [place] | | | JULIANN SILVA OF CARE | [facility] | [address] | | | TESTS | | | [...] MARIA | [address] | [place], [place] | | | RICARDO POINT OF CARE | [facility] | [address] | | | TESTS | | | [...] [facility] | [address] | [place] [address] | | | SERVICES, CORE | TABITHA [...] | [facility] | [address] | [place] [address] | | | SERVICES, CORE | TABITHA [...] [facility] | [address] | [place] [address] | | | SERVICES, CORE | PARK [...] [facility] | [address] | [place] [address] | | | SERVICES, CORE | PARK [...] | | | LABORATORY | | | [place] | | | SERVICES, | | | [...] | + + + + + | [employer] | [address] | [place] [address] | | | SERVICES, CORE | TABITHA [...] Division of Cardiothoracic Surgery | | | [facility] - Mail Code [id number] [id number] | | | [place] [phone] | | + + + X-RAY PORTABLE CHEST 1 VIEW (03/15/2017 2:32 PM PDT) + + | Specimen | + + | | + + + + + | Narrative | Performed At | + + + | STUDY: VA CHEST 1 VIEW 03/15/17 14:21:08 COMPARISON: 03/15/17. | [facility] | | HISTORY: Introducer placement-June when [...] Note | + + | Service Account, RadiSolasta Res In Interface - 03/15/2017 2:46 PM [...] + + + + | PRODUCT | [id number] | | [facility] | | | UNIT [...] + + + + | EXPIRATION | [id number] | | [facility] | | | DATE [...] + + + + | BLOOD | [id number] | | [facility] | | | PRODUCT [...] | + + + + + | [employer] | [address] | [place] [address] | | | SERVICES, | [address] [...] + + + + | PRODUCT | [id number] | | [facility] | | | UNIT [...] + + + + | EXPIRATION | [id number] | | [facility] | | | DATE [...] + + + + | BLOOD | [id number] | | [facility] | | | PRODUCT [...] [facility] | [address] | [place] [address] | | | SERVICES, | [address] [...] + + + + | PRODUCT | [id number] | | [facility] | | | UNIT [...] + + + + | EXPIRATION | [id number] | | [facility] | | | DATE [...] + + + + | BLOOD | [id number] | | [facility] | | | PRODUCT [...] + + | [facility] | [address] [facility] | [place] [address] | | | SERVICES, | [address] [...] + + + + | PRODUCT | [id number] | | [facility] | | | UNIT [...] + + + + | EXPIRATION | [id number] | | [facility] | | | DATE [...] + + + + | BLOOD | [id number] | | [facility] | | | PRODUCT [...] [facility] | [address] | [place] [address] | | | SERVICES, | [address] | | | | TRANSFUSION MEDICINE | | | | + + + + + QH-GR-IWL-HB,POC RT (03/15/2017 1:23 PM PDT) + + [...] [facility] | [address] | [place], [place] | | | JULIANN SILVA OF [place] | [address] | [address] | | | TESTS | | | [...] [facility] | [address] | [place], [place] | | | RICARDO POINT OF CARE | [address] | [address] | | | TESTS | | | [...] Performed At | + + + | [facility] | [facility] | | [facility] Adult Echocardiography | CARDIOLOGY | | Laboratory [address] [place] [address], | | | [place] [address] Pt Name: | | | RON Neena MCKEON Study Date/Time 03/15/2017 / 12:54:21 | | | [id number] Most recent | | | prior: -Acc #: [id number] No. previous | | | echos: 0DOB: 1955 61 years Heart Rate: | | | 145 bpmHeight: Blood | | | Pressure: 90/67 mm/HgWeight: 249.0 | | | lb Gender: | | | MBSA: 2.34 m2 Order | | | ID: [id number] Gis Specialist: Vahid NOBLES | | | Referring Provider: [...] Report electronically signed by: | | | [id number] Yajaira Johnson MD (03/15/2017, 3:38:52 PM) Final | | | | | | | | | | | | Final | | + + + + + | Procedure Note | + + | Interface, Cardiology Results - 03/15/2017 3:38 PM [facility] [employer] | | [facility] Echocardiography Laboratory [address] [place] [address] | | [place], [place] [address] Pt Name: RON Chaudhary | | MIKE Study Date/Time 03/15/2017 / 12:54:21 PMMRN: [id number] Most | | recent prior: -Acc #: [id number] No. previous echos: 0DOB: 1955 61 | | years Heart Rate: 145 bpmHeight: Blood Pressure: 90/67 | | mm/HgWeight: 249.0 lb Gender: MBSA: 2.34 m2 | | Order ID: [id number] Gis Specialist: Vahid Parmar RCSReferring Provider: | | Gaurav [...] values Report electronically signed by: | | [id number] Yajaira Johnson MD (03/15/2017, 3:38:52 PM) Final [...] | | | |Report electronically signed by: [id number] Yajaira Johnson MD (03/15/2017, 3:38:52 PM) | | | | | | | | Final | + + + + + + + | Performing | Address | City/State/Zipcode | Phone Number | | Organization | | | | + + + + + | [facility] | [address] | [place], [place] | | | CARDIOLOGY | [address] | [address] | | + + + + + [...] DEPT OF | [address] | [place], [place] | | | CARDIOLOGY | [address] | [address] | | + + + + + [...] [facility] | [address] | [place] [address] | | | SERVICES, | [address] [...] [facility] | [address] | [place] [address] | | | SERVICES, | [address] [...] + + + + + | [facility] | [address] | [place] [address] | | | SERVICES, CORE | TABITHA [...] + + + + + | [facility] | [address] | [place] [address] | | | ИРИНА ANTOINE [...] | + + + + + | [facility] | [address] | [place] [address] | | | SERVICES, | [address] [...] [facility] | [address] | [place] [address] | | | SERVICES, ИРИНА | TABITHA [...] [facility] | [address] | [place] [address] | | | SERVICES, CORE | TABITHA [...] [facility] | [address] | [place] [address] | | | SERVICES, CORE | PARK [...] | | | LABORATORY | | | [place] | | | SERVICES, | | | [...] + + + + + | [facility] | [address] | [place] [address] | | | SERVICES, CORE | [address] | | | + + + + + TJ-GT-HPR-HB,POC RT (03/15/2017 12:16 PM PDT) + + [...] [facility] | [address] | [place], [place] | | | [facility]O [facility] | [facility] | [address] | | | TESTS | | | [...] | | | 03/15/17 at 1202, Until [facility] 04/02/17 | | | at 2030, 2nd [...] PDT | | | | | Until [facility] 04/02/17 at 203, | | | | [...] | | | | | Until [facility] 04/02/17 at 2030, severe | | [...] EVENING, | | | First dose on [facility] 04/02/17 at | | | 2100, Until Discontinued | | + +---+ | | | + +---+ documented in this encounter
--- OUTSIDE RECORDS SUMMARY | ~2019-02-13 | XMS | Encounter Summary ---
Demographics + + + | Address | [address] | | | [place] [address] | + + + | Home Phone [...] | | | | | [place] [address] | | + + + + + Care Team Providers + +------+ + | Care Mattress Weaver Name | Role | Phone | + [...] | | | | | (HCC) | [place], [place] | for Health | | | | | Stenosis of | [address] | and Healing | | | | | coronary | Phone: | [place], [place] | | | | | artery | [phone] | [address] | | | | | stent, | Fax: | Phone: | | | | | initial | [phone] | [phone] | | | | | encounter | | Fax: | | | | | Procedures | | [phone] | | | | | CONSULT TO [...] + + | 10/10/ | Hospital | [address] | Khurram Bedoya | | | 2018 - | Encounter | [address] | MD Kari [address] | | | | | [address] [place] [address] | [address] | | | 10/17/ | | [place], [place] | [place] | | | 2018 | | [address] | [address] | | | | | [phone] | [phone] | | | | | | | [...] Referring Physician & Institution: Other Dictation Primary/Outpatient Oil Well Engineer: Dr Jamal Guerrero MD Inpatient Attending Physician: Khurram Bedoya MD Author/Discharging Provider: LALA SCHOFIELD PA-C Admission Date: 10/10/2017 Discharge Date: 10/17/2017 Active Hospital Problems 1) *NSTEMI (non-ST elevated myocardial infarction) (HCC) 2) Coronary artery disease 3) Stenosis of coronary artery stent 4) Ischemic cardiomyopathy 5) Chronic systolic congestive heart failure (HCC) 7) Encounter for insertion of cardiac resynchronization therapy defibrillator (STATISTICAL ANALYST-D) 8) Paroxysmal atrial flutter (HCC) 9) Influenza, pneumonia 10) Prediabetes 11) Tobacco use Procedures 10/15/17: Successful percutaneous coronary intervention to the ostial left circumflex. One 3.0 x 18 mm Resolute Killen drug-eluting stent. Successful percutaneous coronary transluminal angiopla sty of the distal left main extending into the left anterior descending coronary artery with final kissing balloon inflation with a 3.5 mm noncompliant and a 2.5 mm compliant balloon. 10/16/17: 1) EP study with VT induction 2) STATISTICAL ANALYST-D implantation Reason For Admission: Consideration of complex PCI vs CABG for in-stent restenosis of LCx and LM/LAD stents Hospital Course: Please see H&P for hospital course at [place] prior to transfer to [facility]. Ron Mckeon is a [...] treatment who was admitted in transfer from [place] on 10/11 for consideration of PCI vs [...] support--had one 3.0 x [address] ug-eluting stent placed in ostial L [...] 10/16. VT was induced, therefor e a STATISTICAL ANALYST-D was implanted. He is discharging home in good condition with follow up in 1 week w ith his Oil Well Engineer. The following problems were addressed this [...] uenza and underwent a coronary angiogram at [place] which revealed in stent re-stenosis of both LM into LAD and LCx stents, mild disease of RCA. Transferred to [facility] for further onel luation. CTS was consulted for consideration of CABG vs complex PCI. Due to nonviable myocardium archie wn on cardiac PET and resting NM perfusion study, PCI was chosen over CABG. On 10/15 he underw ent angiography/PCI with impella support--had one 3.0 x 18 mm Resolute Killen drug-eluting chery nt placed in ostial L [...] II, Stage C. Etiology ischemic. TTE at [facility] showed EF 30-35%, mildly [...] the past --ICD: placed by EP 10/16, STATISTICAL ANALYST-D -- will need 1 week f/u for wound check, then 1 month device check with EP -- f/u with outpatient bar host 2-4 weeks # Paroxysmal Aflutter Noted Aflutter with RVR at admission in [place]; treated with amiodarone infusion. He w as transitioned to oral amiodarone and maintained normal rhythm. Given that the aflutter occ urred in setting of severe sepsis, will not continue amiodarone or warfarin. If he has recur rent arrhythmia, this will be noted on STATISTICAL ANALYST-D and could consider anticoagulation at that time . However, he requires DAPT and has a possible history of recent GIB, so triple therapy shou ld be avoided if not necessary --rate control: metoprolol as above --anticoagulation: holding warfarin for now given DAPT and h/o GI B. Discuss further with outpatient bar host. May consider holding anticoagulation unless he demonstrates recurrent arrhythmia # Influenza type A - resolved # Community acquired pneumonia # Severe sepsis with shock, resolved Pt presented to [place] 10/03 found to be Flu Apositive with [...] sepsis management , fluid resuscitation. EGD at [place] on 10/05 showed gastritis, duodenitis, linear ulcerations [...] first post-hospitalization visit: 1. Wound check from STATISTICAL ANALYST-D placement 2. Consider restarting lisinopril if BPs improve and Cr is stable 3. Instructed pt to restart metformin on 08/18 but reevaluate based on Cr Schedule the following appointment(s) when you get home KULWINDER Stevens. Go on 10/19/2017. Why: at 1:15pm for heart failure follow up, to re-check labwork, and to have your wound ch ecked Contact information HEART [address] [address] KULWINDER Stevens. Go on 11/11/2017. Why: at 9:30am for cardiology follow up and to have your device checked Contact information HEART [address] [address] Medication List START taking these medications Childrens [...] Resume on 10/19. Indications: type 2 diabetes [facility] metoprolol succinate 25 mg Tb24 [...] circumflex. One 3.0 x 18 mm Resolute Killen drug-eluting stent. Successful percutaneous coronary transluminal angiop [...] ths. You should be cleared by your bar host prior to returning to driving. If you [...] How to Contact us: Cardiology Division Office [phone] Cardiology Patient Phone Line EDUIN [address] Dr[address] Dr., Dr., PA-C Connie Barber, NP Karen Paladino, RN Margaret Kleist, RN Evenings or weekends: Ask for on-call bar host Drug Eluting Stent 1. Please take Plavix (clopidogrel) everyday which helps to keep the stent open. You need t o take it every day for one year and do not stop unless you are told to by your bar host . 2. Take an aspirin 81 mg once daily indefinitely. 3. You were referred for cardiac rehab and should start now that you have had a stent place d. 4. Follow up with your bar host within 2-4 weeks. 5. No elective surgeries [...] Lala Schofield PA-C Instructor of Cardiovascular Medicine [facility] Cardi[facility] [place] [facility] [place] I spent 36 minutes in coordination of care and valn-lg-gnjx with the patient and/or their s urrogate in which the problems above were discussed Associated attestation - Khurram Bedoya MD - 10/17/2017 3:22 PM PSTCardiology Anthony souza I have seen and examined Mr. Mckeon and discussed the [facility]. I reviewed the practitioner's note above and agree with the documented f indings and plan of care. KHURRAM BEDOYA MD Director of the [facility] Hypertrophic Cardiomyopathy Inspector Boiler of Echocardiography [employer]p [employer] tender Division of Cardiovascular Medicine documented in this encounter Discharge Instructions AttachmentsThe following attachments cannot be sent through Care Everywhere.WOUND CHECK (EN GLISH)ICD (IMPLANTABLE CARDIOVERTER-DEFIBRILLATOR): POST-OP (SCOTTISH)PAIN POST-SURGERY: ACUT E (SCOTTISH)OPIOIDS: SAFE USE (SCOTTISH)OPIOIDS: STORAGE AND DISPOSAL: GENERAL INFO (SCOTTISH)d ocumented in this encounter Medications at Time [...] Information: Implant date: 10/16/17 BiV-ICD pulse generator: Solar Sales Assessor: MedReflectance Medical Model number: [id number] Serial number: [id number] RA lead: Solar Sales Assessor: Medtronic Model number: 5076-52 Serial number: [id number] RV lead: Solar Sales Assessor: Medtronic Model number: [id number] Serial number: [id number] CS lead: Solar Sales Assessor: Medtronic Model number: [id number] Serial number: [id number] ICD PROGRAMMING: Bradycardia Parameters: Mode: DDD Lower rate limit: 50 Upper rate limit: 130 Output (A): 3.5 V at 0.4 ms Sensitivity (A): 0.3 mV Output (RV): 3.5 V at 0.4 ms Sensitivity (RV): 0.3 mV Output (CS): 2.0 V at 0.4ms Tachycardia Parameters: VT zone: 177-200 Therapies: Monitor VF zone: >200 bpm Therapies: 35 J x 6 PACING PERCENTAGE: AP: <0.1% LOUVER DOOR ASSEMBLER: 98.3% EPISODES SINCE IMPLANT: none. TODAY'S [...] and Device check in one month at [facility] device clinic. I have [...] of Cardiovascular Medicine [facility] Pager [phone] signed by Lauro Jorgensen MD at 10/18/2017 [...] follow up. Lauro Jorgensen M.D. Director, Electrophysiology Mental Telepathistanimal sticker [facility] [place] [address] Amarilis Castle MD - 10/17/2017 10:53 AM [...] hs. You should be cleared by your bar host prior to returning to driving. ? If [...] through the full body scanner at the [facility], but only after 6 weeks post [...] How to Contact us: Cardiology Division Office [phone] Cardiology Patient Phone Line EDUIN [address] [...] 1) EP study with VT induction 2) STATISTICAL ANALYST-D Indication for the procedure: Ischemic cardiomyopathy with [...] Electrophysiology Fellow Division of Cardiovascular Medicine [facility] Pager [phone] ala Schofield PA-C - 10/16/2017 2:07 PM PST IP Cardiology Progress Note Date: 10/16/2017 Hospital Day: 6 Attending Oil Well Engineer: Khurram Bedoya MD Provider: LALA SCHOFIELD PA-C Primary Care Provider: Chato Matson MD Outpatient Oil Well Engineer: Dr Jamal Guerrero MD ID:Ron Mckeon is a 61 year old male with past medical history of CAD s/p anterior CHERY MA 03/2017 with cardiogenic shock s/p PCI with ANY to LM/LAD and LCx with ECMO support, systo lic heart failure (EF 20-25%), ischemic cardiomyopathy, hypertension, Atrial flutter, prior tobacco use, recent JAVON thrombus on anticoagulation, Influenza A with septic shock (10/03) re quiring intubation and mechanical ventilation, HAP on treatment who was admitted in transfer from [place] on 10/11 for consideration of PCI vs [...] cannot appreciate murmur and sounds regular. J LOUVER DOOR ASSEMBLER not above clavicle at 90 degrees [...] found for: FREET4, TSH, TPOAB, THYROGLOB, THYROGLOBAB, [id number] Lab Results Component Value Date A1C 5.9 [...] circumflex. One 3.0 x 18 mm Resolute Killen drug-eluting stent. Successful percutaneous coronary transluminal angiopla [...] uenza and underwent a coronary angiogram at [place] which revealed in stent re-stenosis of both LM into LAD and LCx stents, mild disease of RCA. Transferred to [facility] for further onel luation. [...] II-III, Stage C. Etiology ischemic. TTE at [facility] showed EF 30-35%, mildly [...] check with EP -- f/u with outpatient bar host 2-4 weeks # Paroxysmal Aflutter Noted Aflutter with RVR at admission in [place]; treated with amiodarone infusion. Now maintaining SR on oral amio. CHADS-VASC 3, HAS-BLED 3. Was previously on heparin infusion fo r NSTEMI but this has been stopped and AC was not started in anticipation of PCI. --rate control: carvedilol as above --rhythm control: continue amiodarone 200 mg daily for now, to be reassessed b y outpatient bar host --anticoagulation: holding warfarin for now given DAPT and h/o GIB. Discuss fu rther with outpatient bar host. May consider holding anticoagulation unless he demonstra janeth recurrent arrhythmia # Influenza type A - resolved # Community acquired pneumonia # Severe sepsis with shock, resolved Pt presented to [place] 10/03 found to be Flu A positive [...] sepsis management , fluid resuscitation. EGD at [place] on 10/05 showed gastritis, duodenitis, linear ulcerations [...] patient was interviewed and examined by attending bar host, Dr. Khurram Bedoya MD , who is in agreement with above described findings, assessment and plan. LALA SCHOFIELD PA-C Cardiovascular Medicine [facility] Pager [phone] I spent 36 minutes in coordination of care and thzh-we-avhu with the patient and/or their surrogate in [...] current post-cath car e. JOHN AMAYA MD [address] [place] [address] Ruth Ann Aguilar PA-C - [...] circ and LAD. EPS v-stim with possible STATISTICAL ANALYST-D tomorrow (QRS today is 152 atypical LB BB). See yesterdays attestation Sophie Darby MD Cardiovascular Medicine - Electrophysiology [facility] Cardi[facility] [place] at [facility] Arya Low MD - 10/15/2017 1:05 PM PSTCARDIOLOGY PRELIMINARY PROCEDURE NOTE Primary Care Provider: Chato Matson MD Referring Provider: Other Dictation Blending Kettle Tender Staff: Tejal Modi M.D. Procedure(s): 1. Coronary angiography 2. Percutaneous coronary intervention 3. Left heart catheterization 4. Impella placement and removal 5. Moderate conscious sedation Indications: Unstable angina, planned LM intervention Access: 14-Prydeinig RFA 6-Prydeinig RFV 7-Prydeinig LFA Post Procedure Access:No evidence of significant [...] Note Date: 10/15/2017 Hospital Day: 5 Attending Oil Well Engineer: Khurram Bedoya MD Provider: LALA SCHOFIELD PA-C Primary Care Provider: Chato Matson MD Outpatient Oil Well Engineer: Dr Jamal Guerrero MD ID:Ron Mckeon is a 61 year old male with past medical history of CAD s/p anterior CHERY MA 03/2017 with cardiogenic shock s/p PCI with ANY to LM/LAD and LCx with ECMO support, systo lic heart failure (EF 20-25%), ischemic cardiomyopathy, hypertension, Atrial flutter, prior tobacco use, recent JAVON thrombus on anticoagulation, Influenza A with septic shock (10/03) re quiring intubation and mechanical ventilation, HAP on treatment who was admitted in transfer from [place] on 10/11 for consideration of PCI vs [...] cannot appreciate murmur and sounds regular. J LOUVER DOOR ASSEMBLER not above clavicle at 90 degrees [...] found for: FREET4, TSH, TPOAB, THYROGLOB, THYROGLOBAB, [id number] Lab Results Component Value Date A1C 5.9 [...] uenza and underwent a coronary angiogram at [place] which revealed in stent re-stenosis of both LM into LAD and LCx stents, mild disease of RCA. Transferred to [facility] for further onel luation. CTS was consulted for consideration of CABG vs complex PCI. Due to nonviable myocardium archie wn on cardiac PET and resting NM perfusion study, he will proceed with PCI tomorrow with Imp tania support. -- to seed laboratory assistant today for PCI with impella support --ASA [...] II-III, Stage C. Etiology ischemic. TTE at [facility] showed EF 30-35%, mildly [...] Noted Aflutter with RVR at admission in [place]; treated with amiodarone infusion. Now maintaining SR [...] sepsis with shock, resolved Pt presented to [place] 10/03 found to be Flu A positive [...] sepsis management , fluid resuscitation. EGD at [place] on 10/05 showed gastritis, duodenitis, linear ulcerations [...] patient was interviewed and examined by attending bar host, Dr. Khurram Bedoya MD , who is in agreement with above described findings, assessment and plan. LALA SCHOFIELD PA-C Cardiovascular Medicine [facility] Pager [phone] I spent 38 minutes in coordination of care and bpnu-pn-zqha with the patient and/or their surrogate in which the following was discussed: plan for PCI with impella support today, hea rt failure, anticoagulation for aflutter, discharge planning Associated attestation - Khurram Bedoya MD - 10/15/2017 1:15 PM PSTCardiology Attendi ng I have seen and examined Mr. Mckeon and discussed the [facility]. I reviewed the practitioner's note above and agree with the documented f indings and plan of care. KHURRAM BEDOYA MD Director of the [facility] Hypertrophic Cardiomyopathy Inspector Boiler of Echocardiography [employer] tender Division of Cardiovascular Medicine Ruth Ann Carvajal [...] gorized as high risk. Assessment and Plan: oRn Mckeon is a 61 y.o. male with [...] Vf/VT risk in both short and senior living. Given NSVT and EF 30-35%, we will therefore proceed to an EP study with implantation o f an ICD if she has inducible VT. Given atypical LBBB QRS 147 and current functional status 3 (prior 1-2 by report) and concern for lack of EF recovery, we would plan for STATISTICAL ANALYST with His- bundle lead if needed. Sophie Darby MD Cardiovascular Medicine - Electrophysiology [facility] Cardiovascular [place] at [facility] Lala Schofield PA-C - 10/14/2017 11:58 AM PSTFormatting of this note might be different f rom the original. IP Cardiology Progress Note Date: 10/14/2017 Hospital Day: 4 Attending Oil Well Engineer: Khurram Bedoya MD Provider: LALA SCHOFIELD PA-C Primary Care Provider: Chato Matson MD Outpatient Oil Well Engineer: Dr Jamal Guerrero MD ID:Ron Mckeon is a 61 year old male with past medical history of CAD s/p anterior CHERY MA 03/2017 with cardiogenic shock s/p PCI with ANY to LM/LAD and LCx with ECMO support, systo lic heart failure (EF 20-25%), ischemic cardiomyopathy, hypertension, Atrial flutter, prior tobacco use, recent JAVON thrombus on anticoagulation, Influenza A with septic shock (10/03) re quiring intubation and mechanical ventilation, HAP on treatment who was admitted in transfer from [place] on 10/11 for consideration of PCI vs [...] Very t hankful of care provided at [facility] Current Inpatient Medications: acetaminophen [...] found for: FREET4, TSH, TPOAB, THYROGLOB, THYROGLOBAB, [id number] Lab Results Component Value Date A1C 5.9 [...] uenza and underwent a coronary angiogram at [place] which revealed in stent re-stenosis of both LM into LAD and LCx stents, mild disease of RCA. Transferred to [facility] for further onel luation. [...] II-III, Stage C. Etiology ischemic. TTE at [facility] showed EF 30-35%, mildly [...] Noted Aflutter with RVR at admission in [place]; treated with amiodarone infusion. Now maintaining SR [...] sepsis with shock, resolved Pt presented to [place] 10/03 found to be Flu A positive [...] sepsis management , fluid resuscitation. EGD at [place] on 10/05 showed gastritis, duodenitis, linear ulcerations [...] patient was interviewed and examined by attending bar host, Dr. Khurram Bedoya MD , who is in agreement with above described findings, assessment and plan. LALA SCHOFIELD PA-C Cardiovascular Medicine [facility] Pager [phone] I spent 42 minutes in coordination of care and chze-um-dhmo with the patient and/or their s urrogate in which the following was discussed: results of nuc med and PET scan studies indic ating no viable myocardium and thus will plan for complex PCI tomorrow Associated attestation - Khurram Bedoya MD - 10/14/2017 9:29 PM PSTCardiology Attendi libby I have seen and examined Mr. Mckeon and discussed the patient's management [facility]. I reviewed the practitioner's note above and agree with the documented f indings and plan of care. KHURRAM BEDOYA MD Director of the [facility] Hypertrophic Cardiomyopathy Inspector Boiler of Echocardiography [employer] tender Division of Cardiovascular Medicine Ashleigh Alvarez ACNP - 10/13/2017 8:33 AM PSTFormatting of this note might be diff erent from the original. Cardiology Inpatient Progress Note Date: 10/13/2017 Hospital Day: 3 Primary Care Physician: Chato Matson MD Outpatient Oil Well Engineer: Dr Jamal Guerrero MD Attending Oil Well Engineer: Khurram Bedoya MD Provider: KULWINDER Grace [...] who was admitted in transfe r from [place] on 10/11 for consideration of PCI vs [...] found for: FREET4, TSH, TPOAB, THYROGLOB, THYROGLOBAB, [id number] Lab Results Component Value Date A1C 5.9 [...] exam dated, 03/30/2017, the LVEF is similar. [facility] CXR 10/11/17: FINDINGS: The [...] flow to distal LAD 10/03/17 Echo at [place]: The number of aortic valve leaflets cannot [...] stents # NSTEMI Pt was admitted to [place] 10/03 with hypoxemic respiratory failure, severe sepsis and s hock thought to be due to influenza type A as below. Noted to have new LBBB, NSTEMI with pea k trop 26. Underwent coronary angiogram at [place] 10/04 which revealed in stent re-steno sis of both LM into LAD and LCx stents, mild disease of RCA. Transferred to [facility] for further evaluation. TTE [...] (likely with Dr Modi with [facility] a support) which would require repeat bolus [...] II-III, Stage C. Etiology ischemic. TTE at [facility] showed EF 30-35%, mildly reduced RV function, mild dilation of ascending aorta. LVEDP 14 mm hg during catheterization 10/04 ( in setting of hypotension). Pt was diuresed at [place], appears euvolemic on exam. Pt wa s [...] Noted Aflutter with RVR at admission in [place], treated with amiodarone infusion, bertha alonzo SR [...] admitted with acute dyspnea, respiratory failure to [place] 10/03 found to be Flu A p [...] sepsis management , fluid resuscitation. EGD at [place] on 10/05 showed gastritis, duodenitis, linear ulcerations [...] patient was interviewed and examined by attending bar host, Dr. Khurram Bedoya MD , who is in agreement with above described findings, assessment and plan. KULWINDER Grace Instructor of Medicine [facility] Cardiovascular [place] Pager [phone] I spent 33 minutes in coordination of care and gtvt-og-wlxc with the patient and/or their s urrogate in which management of CAD, imaging plan and consultation with radiology, revascula rization treatment was discussed Associated attestation - Khurram Bedoya MD - 10/13/2017 2:48 PM PSTCardiology Attendi I have seen and examined Mr. Mckeon and discussed the patient's management with the [facility] practitioner. I reviewed the practitioner's note above and agree with the documented f indings and plan of care. KHURRAM BEDOYA MD Director of the [facility] Hypertrophic Cardiomyopathy Inspector Boiler of Echocardiography [employer] tender Division of Cardiovascular Medicine Ashleigh Alvarez ACNP - 10/12/2017 8:02 AM PSTFormatting of this note might be diff erent from the original. Cardiology Inpatient Progress Note Date: 10/12/2017 Hospital Day: 2 Primary Care Physician: Chato Matson MD Outpatient Oil Well Engineer: Dr Jamal Guerrero MD Attending Oil Well Engineer: Khurram Bedoya MD Provider: KULWINDER Grace [...] who was admitted in transfe r from [place] on 10/11 for consideration of PCI vs [...] found for: FREET4, TSH, TPOAB, THYROGLOB, THYROGLOBAB, [id number] Lab Results Component Value Date A1C 5.6 [...] exam dated, 03/30/2017, the LVEF is similar. [facility] CXR 10/11/17: FINDINGS: The [...] flow to distal LAD 10/03/17 Echo at [place]: The number of aortic valve leaflets cannot [...] stents # NSTEMI Pt was admitted to [place] 10/03 with hypoxemic respiratory failure, severe sepsis and s hock thought to be due to influenza type A as below. Noted to have new LBBB, NSTEMI with pea k trop 26. Underwent coronary angiogram at [place] 10/04 which revealed in stent re-steno sis of both LM into LAD and LCx stents, mild disease of RCA. Transferred to [facility] for further evaluation. TTE [...] II-III, Stage C. Etiology ischemic. TTE at [facility] showed EF 30-35%, mildly reduced RV function, mild dilation of ascending aorta. LVEDP 14 mm hg during catheterization 10/04 ( in setting of hypotension). He was diuresed at [place], appears euvolemic on exam today. Pt was [...] Aflutter with RVR prior to admission in [place], treated with amioda rima infusion, maintaining SR [...] admitted with acute dyspnea, respiratory failure to [place] 10/03 found to be Flu pos itive. [...] sepsis management , fluid resuscitation. EGD at [place] on 10/05 showed gastritis, duodenitis, linear ulcerations [...] patient was interviewed and examined by attending bar host, Dr. Khurram Bedoya MD , who is in agreement with above described findings, assessment and plan. Ashleigh Alvarez, [facility] Instructor of Medicine [facility] [place] Pager [phone] I spent 51 minutes in coordination of care and ffwa-df-dwlu with the patient and/or their s urrogate in which management of CAD, imaging plan and consultation with radiology, pneumonia treatment was discussed Associated attestation - Khurram Bedoya MD - 10/12/2017 3:00 PM PSTCardiology Attendi I have seen and examined Mr. Mckeon and discussed the patient's management with the [facility] practitioner. I reviewed the practitioner's note above and agree with the documented f indings and plan of care. KHURRAM BEDOYA MD Director of the [facility] Hypertrophic Cardiomyopathy Inspector Boiler of Echocardiography Vp Customer Developmentspool tender Division of Cardiovascular Medicine Cristi Sutton - 10/11/2017 12:15 PM PSTTransthoracic echocardiogram completed. Final report to follow. documented in this enc ounter Plan of Treatment + +---------+--------+ + + | Name | Type | Priori | Associated Diagnoses | Order Schedule | | | | ty | | | + +---------+--------+ + + | CLERICAL ASSISTANT INT | Imaging | Routin | | Tomorrow for 1 | | CORONARY ANGIOGRAM | | e | | Occurrences starting | | | | | | 10/15/2017 until | | | | | | 10/15/2017 | + +---------+--------+ + + | CLERICAL ASSISTANT EP ICD | Imaging | Routin [...] | POC | | PST | infarction) ([facility]) | results section. | + +--------+ + + + | CAPILLARY BLOOD | Routin | 10/17/2017 | Non-ST elevation | Results for this | | GLUCOSE (NO CHG), | e | 7:38 AM | (NSTEMI) myocardial | procedure are in the | | POC | | PST | infarction ([facility]) | results section. | + +--------+ + [...] | | | | PST | infarction) ([facility]) | results section. | + +--------+ + [...] | POC | | PST | infarction ([facility]) | results section. | + +--------+ + [...] | + +--------+ + + + | CLERICAL ASSISTANT | Routin | 10/15/2017 | | [...] | POC | | PST | infarction ([facility]) | results section. | + +--------+ + [...] RODGERS | [address] | [place], [place] | | | R[facility]ARDO POINT OF CARE | [address] | [address] | | | TESTS | | | [...] MARQUAM | [address] | [place], [place] | | | CHRISTIE SILVA [facility] | [address] | [address] | | | TESTS | | | [...] Note | + + | Service Account, Carnival In Interface - 10/17/2017 7:51 AM PST [...] [facility] | [address] | [place] [address] | | | SERVICES, CORE | PARK [...] | | | LABORATORY | | | MALAGASY | | | SERVICES, | | | [...] + + | [facility] bCODE | [address] | [place] [address] | | | SERVICES, ИРИНА | JT [...] + | STUDY: AL CHEST 1 VIEW HISTORY: Evaluated lead placement. | [facility] | | COMPARISON: STUDY: AL CHEST 1 VIEW FINDINGS: A new | [...] Interface - 10/17/2017 7:51 AM PST STUDY: AL CHEST 1 | | VIEWHISTORY: Evaluated lead placement.COMPARISON: STUDY: AL CHEST 1 VIEWFINDINGS: A | | new [...] He | | | is candidate for STATISTICAL ANALYST-D since he as class 2 baseline heart failure | | | and currently class 3 heart failure with LBBB 152 msec. | | | PROCEDURE ATTENDING: Sophie Darby MD | | | FELLOW: Amarilis Castle MD | | | PROCEDURAL DATA: Procedure: New implant Implanted | | | generator arts and sciences dean: Medtronic Implanted leads arts and sciences dean: | | | Medtronic Radha-procedure Anticoag: None Presenting rhythm: | | | NSR Existing device under advisory? No Pacemaker | | | dependent: No Method of sedation: Conscious sedation - Anesth | | | provider Response to sedation: Normal Fluoroscopy time (see | | | log): 45-47 minutes MEDICATIONS: See anesthesia log | | | and seed laboratory assistant log INTAKE AND OUTPUT: 1000 ml / [...] INFORMATION: BiV-ICD pulse generator: | | | Solar Sales Assessor: Medtronic Model number: [id number] Serial | | | number: [id number] RA lead: Solar Sales Assessor: Medtronic | | | Model number: 5076-52 Serial number: [id number] RV lead: | | | Solar Sales Assessor: Medtronic Model number: [id number] Serial | | | number: [id number] CS lead: Solar Sales Assessor: Medtronic | | | Model number: [id number] Serial number: [id number] MEASURED | | | PARAMETERS: RA lead: [...] of Cardiovascular Medicine | | | Formerly [facility] Pager [phone] Pursuant to | | | Federal Medicare requirements, I certify that I, Sophie Darby MD, | | | was present for the entire procedure, performed all critical | | | elements, and participated directly in the generation of this | | | report. Sophie Darby MD Cardiovascular Medicine - | | | Electrophysiology [facility] [place] at [facility] | | + + + PROCEDURE [...] See | | | anesthesia log and seed laboratory assistant log FLUIDS: In: 300 ml/ Out: 0 [...] HV interval (ms): 75 | | | AL interval (ms): 180 QRS duration (ms): 130 [...] [facility] | | | Pager [phone] Pursuant to Federal Medicare requirements, I certify | | | that I, Sophie Darby MD, was present for the entire procedure, | | | performed all critical elements, and participated directly in the | | | generation of this report. Sophie Darby MD Cardiovascular | | | Medicine - Electrophysiology [facility] [place] at [facility] | | + + + VBG-FULL ABL, POC (10/16/2017 3:55 PM PST) + + + + + + | Component | Value | Ref Range | Performed | Pathologist | | | | | At | Signature | + + + + + + | PH VENOUS, | 7.32 (L) | 7.35 - 7.45 | [facility] - | | | POC | [...] + + + | EULOGIO R[facility] | [address] | [place], [place] | | | JULIANN SILVA OF [facility] | [address] | [address] | | | TESTS | | | [...] RODGERS | [address] | [place], [place] | | | [facility]O POINT OF CARE | [address] | [address] | | | TESTS | | | [...] [facility] | [address] | [place] [address] | | | SERVICES, CORE | PARK [...] | | | LABORATORY | | | MALAGASY | | | SERVICES, | | | [...] + | [facility] | [address] | [place] [address] | | | ИРИНА ANTOINE | JT [...] MAR[facility] | [address] | [place], [place] | | | JULIANN SILVA OF CARE | [address] | [address] | | | TESTS | | | [...] DEPT OF | [address] | [place], [place] | | | CARDIOLOGY | [address] | [address] | | + + + + + CARDIAC CATH (10/15/2017 2:11 PM PST) + + | Procedure Note | + + | Tejal Modi MD - 10/15/2017 2:11 PM PST DATE OF PROCEDURE:October 15, | | 2018PERFORMING PHYSICIAN:Tejal Modi [facility] ATTENDING:Mike Bray MDTheramy was no [...] 110 mL.FLUOROSCOPY TIME:17.8 minutes.FLUOROSCOPY | | DAP:7406.0 [id number]:1. Left ventricular pressure 91/23 mmHg.2. Aortic | | pressure 93/72 mmHg, mean of 80 mmHg. 3. Heart rate 71 beats per minute.ACCESS:1. | | 14-Prydeinig Impella sheath in the right femoral artery.2. 7-Prydeinig sheath in the left | | femoral artery.3. 6-Prydeinig sheath in the right femoral vein.ESTIMATED BLOOD [...] | micropuncture technique and ultrasound guidance, a 5-Prydeinig sheath was inserted in the | | right femoral artery and a 6-Prydeinig sheath was inserted in the right femoral vein. Two | | Perclose devices were deployed in the preclosure method and then the 5-Prydeinig sheath was | | exchanged over an Amplatz stiff wire for the 14-Prydeinig Impella sheath. A 5-Prydeinig | | angled pigtail catheter was then [...] technique and ultrasound guidance and placed a 7-Prydeinig sheath. A 7-Prydeinig XB 3.5 guide | | catheter was [...] and a 3.0 x 18 mm Resolute Killen drug-eluting stent was advanced over the | [...] and pulled out of the body. The 14-Prydeinig sheath was | | then removed and [...] with one 3.0 x 18 mm Resolute Killen drug-eluting stent. Successful | | percutaneous coronary [...] | | 10/15/2017 13:25:02DT: 10/15/2017 14:11:10Job #: [id number] | |2. Lesion type: C. | |3. [...] | | | | | | | |rAya Low MD | | | | | |I confirm that Tejal Modi MD supervised and was present throughout the entire procedure. | | | |BCN/MODL | | | | | | /[id number] | + + ACT, POC-CCL ONLY (10/15/2017 [...] [facility] | [address] | [place], [place] | | | JULIANN SILVA OF CARE | [address] | [address] | | | TESTS | | | [...] ANA MARIA | [address] | [place], [place] | | | JULIANN SILVA OF [facility] | [facility] | [address] | | | TESTS | | | [...] R[facility]GERS | [address] | [place], [place] | | | [facility] POINT OF CARE | [address] | [address] | | | TESTS | | | | + + + + + CLERICAL ASSISTANT EMERGENT/IMMEDIATE PROCEDURE (10/15/2017 11:00 AM PST) + + | Specimen | + + | | + + + + + | Narrative | Performed At | + + + | Procedure | | | performed in the Cardiac Blending Kettle Tender. See procedure notes for details. | | [...] RODGERS | [address] | [place], [place] | | | [facility]O POINT OF CARE | [facility] | [address] | | | TESTS | | | [...] [facility] | [address] | [place] [address] | | | SERVICES, CORE | PARK [...] | | | LABORATORY | | | MALAGASY | | | SERVICES, | | | [...] [facility] | [address] | [place] [address] | | | SERVICES, CORE | PARK [...] [facility] | [address] | [place] [address] | | | ИРИНА ANTOINE | JT [...] + + + | EULOGIO R[facility] | [address] | [place], [place] | | | R[facility]O POINT OF CARE | [address] | [address] | | | TESTS | | | [...] | | | LABORATORY | | | MALAGASY | | | SERVICES, | | | [...] [facility] | [address] | [place] [address] | | | SERVICES, CORE | PARK [...] [facility] | [address] | [place] [address] | | | ИРИНА ANTOINE | JT [...] R[facility] | [address] | [place], [place] | | | JULIANN SILVA OF [facility] | [address] | [address] | | | TESTS | | | [...] IMPRESSION: No significant tracer uptake within the xkx-lq-lwaqpy | | | anterior wall/interventricular septum and [...] significant tracer | | uptake within the pmz-ay-sitezu anterior wall/interventricular septum and apex | | corresponding to same non-perfused areas seen on myocardial rest perfusion scan, | | compatible with nonviable myocardium in these regions. I have personally reviewed the | | images and, if necessary, edited the report. I agree with the report as now presented. | |No significant tracer uptake within the fqo-bu-fkntek anterior wall/interventricular septum and apex corresponding to [...] MARQU[facility] | [address] | [place], [place] | | | JULIANN SILVA OF CARE | [address] | [address] | | | TESTS | | | [...] RODGERS | [address] | [place], [place] | | | JULIANN SILVA OF CARE | [address] | [address] | | | TESTS | | | [...] MARQUAM | [address] | [place], [place] | | | JULIANN SILVA OF CARE | [address] | [address] | | | TESTS | | | [...] MARQUAM | [address] | [place], [place] | | | JULIANN SILVA OF CARE | [facility] | [address] | | | TESTS | | | [...] RODGERS | [address] | [place], [place] | | | JULIANN SILVA OF CARE | [address] | [address] | | | TESTS | | | [...] BLUAM | [address] | [place], [place] | | | R[facility]ARDO POINT OF CARE | [address] | [address] | | | TESTS | | | [...] MARQUAM | [address] | [place], [place] | | | JULIANN SILVA OF CARE | [address] | [address] | | | TESTS | | | [...] RODGERS | [address] | [place], [place] | | | JULIANN SILVA OF CARE | [address] | [address] | | | TESTS | | | [...] BLUAM | [address] | [place], [place] | | | JULIANN SILVA OF CARE | [address] | [address] | | | TESTS | | | [...] - MARQU[facility] | [address] | [place], [place] | | | JULIANN SILVA OF CARE | [address] | [address] | | | TESTS | | | [...] RODGERS | [address] | [place], [place] | | | JULIANN SILVA OF [facility] | [address] | [address] | | | TESTS | | | | + + + + + NM MYOCARDIAL PERFUSION (SPECT) SINGLE AT REST OR STRESS (10/13/2017 11:18 AM PST) + + | Specimen | + + | | + + + + + | Narrative | Performed At | + + + | EXAM: Regadenoson Sestamibi SPECT Myocardial Perfusion Study | [facility] | | 10/13/17 09:54:20 HISTORY: Myocardial [...] RODGERS | [address] | [place], [place] | | | R[facility]ARDO POINT OF CARE | [address] | [address] | | | TESTS | | | [...] [facility] | [address] | [place] [address] | | | SERVICES, CORE | PARK [...] | | | LABORATORY | | | MALAGASY | | | SERVICES, | | | [...] + | [facility] | [address] | [place] [address] | | | ИРИНА ANTOINE | JT [...] RODGERS | [address] | [place], [place] | | | JULIANN SILVA OF CARE | [address] | [address] | | | TESTS | | | [...] [facility] | [address] | [place] [address] | | | SERVICES, CORE | JT [...] RODGERS | [address] | [place], [place] | | | JULIANN SILVA OF [facility] | [facility] | [address] | | | TESTS | | | | + + + + + MR CARDIAC COMPREHENSIVE W/O CONTRAST (10/12/2017 12:38 PM PST) + + | Specimen | + + | | + + + + + | Narrative | Performed At | + + + | Report ====== Supervisor Cigarette Making Department: Rodríguez Fortune ([phone])shubham | EULOGIO | | richy Transportation Planning Engineer: shubham lockhart Fellow: shubham lockhart | RADIOLOGY | | Correctional Guard: shubham lockhart Viewer: shubham lockhart Report Date: | CARDIAC IMAGING | | Oct 2017, 09:22:25 PST Patient ------- Patient: RON MCKEON | | | Acc #: [id number] | | | Ethnicity: N Status: Final [...] | | | Image Quality: Good Scanner Solar Sales Assessor: VIDA Software Scanner | | | Model: [employer] Education Scanner Serial Number: [id number] Scanner Software | | | Platform: 5.3.15.3.1.0 Staff: Rodríguez Fortune Modality: MR | | | Indication Name: routine Protocol Name: CMR W Flows WO Contrast | | | Findings -------- Non-cardiac findings were reviewed by Dr. Curtis. | | | This exam was terminated prematurely and is lmiited to marine drafter images. | | | There are bilateral [...] - 10/16/2017 9:22 AM PST | | Report======Supervisor Cigarette Making Department: Rodríguez Fortune ([phone]), shubham Rodriguezalyst: shubham | | Lorena: shubham Garciaechnician: shubham Beckwithwer: shubham | | Rosey Date: 16 Oct 2017, 09:22:25 PSTPatient-------Patient: RON MCKEON | | JMedical Record Number: [id number] ID: [id number] #: [id number]: NStatus: | | Final ReportReport Number: [id number]: MaleBirthdate: 1955 (61 yrs)Study Date: 05 | | Oct 2017Study Description: CMR with Flows with ContrastReferring Physician: KHURRAM | | ANASTACIAITSAULOBlood Pressure: /Heart rate:Height (cm): 0Weight (kg): 89BMI (kg/m ): 0BSA | | (m ): 0 (Mosteller Formula)Image Quality: Jazmincansaulo Solar Sales Assessor: [employer] | | DeskLodgeScanner Model: OpenWherecanFX Bridge Serial Number: [id number] Software Platform: | | 5.3.15.3.1.0Staff: Rodríguez FortuneModality: MRIndication Name: routineProtocol Name: | | CMR W Flows WO ContrastFindings--------Non-cardiac findings were reviewed by | | Ever.This exam was terminated prematurely and is lmiited to marine drafter images.There are | | bilateral pleural [...] Formula) | |Image Quality: Good | |Scanner Solar Sales Assessor: VIDA Software | |Scanner Model: [employer] Education | |Scanner Serial Number: [id number] | |Scanner Software Platform: 5.3.15.3.1.0 | |Staff: Rodríguez Fortune | |Modality: MR | |Indication Name: routine | |Protocol Name: CMR W Flows WO Contrast | |Findings | |-------- | |Non-cardiac findings were reviewed by Dr. Curtis. | |This exam was terminated prematurely and is lmiited to marine drafter images. | |There are bilateral pleural [...] MARIA | [address] | [place], [place] | | | JULIANN SILVA OF CARE | [address] | [address] | | | TESTS | | | [...] LABORATORY | [address] | [place] [address] | | | SERVICES, CORE | JT [...] [facility] | [address] | [place] [address] | | | ИРИНА ANTOINE | JT [...] | | | LABORATORY | | | MALAGASY | | | SERVICES, | | | [...] + + | [facility] | [address] | [place] [address] | | | ARASH, ИРИНА | JT [...] EULOGIO CALABRESE | [address] | [place] [address] | | | SERVICES, ИРИНА | JT [...] [facility] | [address] | [place], [place] | | | RICARDO POINT OF CARE | [address] | [address] | | | TESTS | | | [...] EULOGIO RODGERS | [address] | [place], [place] | | | [facility] | [address] | [address] | | | TESTS | | | [...] Results called to and verified by: Vicki Reeys at phone # | | | EULOGIO on: 10/12/2017 8:10:02 AM PST by: [id number] | | + + + + + + + + | Performing | Address | City/State/Zipcode | Phone Number | | Organization | | | | + + + + + | [facility] - | [address] | [place] [address] | | | [place] | | | | + + + [...] [facility] | [address] | [place] [address] | | | ИРИНА ANTOINE | JT [...] [facility] | [address] | [place] [address] | | | SERVICES, CORE | PARK [...] [facility] | [address] | [place] [address] | | | SERVICES, ИРИНА | JT [...] [facility] | | considered for monitoring termite exterminator glycemic control in patients with: | [...] fructosamine should be considered for monitoring senior living glycemic | | | control in patients [...] + + | [facility] | [address] | [place] [address] | | | SERVICES, SPECIAL | JT [...] At | + + + | [facility] | [facility] DEPT OF | | [facility] Adult Echocardiography | CARDIOLOGY | | Laboratory [address] [place] [address], | | | [place] [address] Pt Name: | | | RON MCKEON Study Date/Time 10/11/2017 / 11:47:35 | | | AMMRN: [id number] Most recent | | | prior: 03/30/2017Acc #: [id number] No. | | | previous echos: 4DOB: 1955 61 years Heart | | | Rate: 84 bpmHeight: 69.0 in | | | Blood Pressure: 115/68 mm/HgWeight: 196.0 | | | lb Gender: | | | MBSA: 2.05 m2 Order | | | ID: [id number] Guide Setter: Shahab Sutton [facility] | | | [...] | | | presents on transfer from [place] for consideration of complex PCI | | [...] | | Ao (prox) 3.70 cm 18.1 mm/d6Adcsvwpbku of | | | chamber size and geometry is accomplished through the incorporation of | | | linear, volumetric, and indexed values Wall Scoring: Report | | | electronically signed by: [id number] Khurram Bedoya MD (10/11/2017, | | | 12:59:49 PM) Final (Updated) | | | Final (Updated) | | + + + + + | Procedure Note | + + | Interface, Cardiology Results - 10/11/2017 1:00 PM [facility] | | [facility] Echocardiography Laboratory [address] [place] [address] | | [place], [place] [address] Pt Name: RON Chaudhary | | MIKE Study Date/Time 10/11/2017 / 11:47:35 AMMRN: [id number] Most | | recent prior: 03/30/2017Acc #: [id number] No. previous echos: 4DOB: | | 1955 61 years Heart Rate: 84 bpmHeight: 69.0 in Blood | | Pressure: 115/68 mm/HgWeight: 196.0 lb Gender: MBSA: | | 2.05 m2 Order ID: [id number] Guide Setter: Shahab Sutton RDReferring | | Provider: Kimmy [...] use disorder who presents on transfer from [place] | | for consideration of complex PCI [...] Ao (prox) | | 3.70 cm 18.1 mm/x5Eorkjmtjam of chamber size and geometry is accomplished | | through the incorporation of linear, volumetric, and indexed values Wall Scoring: Report | | electronically signed by: [id number] Khurram Bedoya MD (10/11/2017, 12:59:49 PM) | [...] | | | |Report electronically signed by: [id number] Khurram Bedoya MD (10/11/2017, 12:59:49 | |PM) | | | | | | | | Final (Updated) | + + + + + + + | Performing | Address | City/State/Zipcode | Phone Number | | Organization | | | | + + + + + | [facility] | [address] | [place], [place] | | | CARDIOLOGY | [address] | [address] | | + + + + + X-RAY PORTABLE CHEST 1 VIEW (10/11/2017 11:24 AM PST) + + | Specimen | + + | | + + + + + | Narrative | Performed At | + + + | STUDY: AL CHEST 1 VIEW COMPARISON: 03/21/17. HISTORY: Cough. [...] Note | + + | Service Account, QuyenWhat's in My Handbag Res In Interface - 10/11/2017 1:51 PM PST STUDY: AL CHEST 1 | | VIEW COMPARISON: 03/21/17.HISTORY: [...] EULOGIO LABORATORY | [address] | [place] [address] | | | SERVICES, CORE | PARK [...] [facility] | [address] | [place] [address] | | | ИРИНА ANTOINE | JT [...] | | | LABORATORY | | | MALAGASY | | | SERVICES, | | | [...] + + | [facility] bCODE | [address] | [place] [address] | | | SERVICES, ИРИНА | JT [...] [facility] | [address] | [place] [address] | | | SERVICES, CORE | PARK [...] [facility] | [address] | [place] [address] | | | ИРИНА ANTOINE | JT [...] + + + | [facility] | [address] | [place] [address] | | | SERVICES, CORE | PARK [...] [facility] | [address] | [place] [address] | | | SERVICES, CORE | JT [...] DEPT OF | [address] | [place], [place] | | | CARDIOLOGY | [address] | [address] | | + + + + + [...] + + | Coronary artery disease involving tazlina coronary artery of tazlina heart, angina | | presence unspecified | [...] of unspecified type of vessel, | | tazlina or graft | + + | Paroxysmal atrial flutter (HCC) Atrial flutter | + + | Chronic systolic congestive heart failure (HCC) Chronic systolic heart failure | + + | Encounter for insertion of cardiac resynchronization therapy defibrillator (STATISTICAL ANALYST-D) | + + | Influenza, pneumonia Influenza [...] PST | | | | | Until [facility] 10/15/17 at 1220 | | | | [...]
--- OUTSIDE RECORDS SUMMARY | ~2019-02-13 | XMS | Encounter Summary ---
Demographics + + + | Address | [address] | | | [place] [address] | + + + | Home Phone [...] + + + | Author | [facility] | + + + | Organization | [facility] | + + + | Address | Unknown | + + + | Phone | Unavailable | + + + Support + + + + + | Name | Relationship | Address | Phone | + + + + + | [place] Will | ECON | [address] | | | | | [place] [address] | | + + + + + Care Team Providers + +------+ + | Care Hospice Fellow Name | Role | Phone | + +------+ + | Chato Matson MD | PCP | | + +------+ + Encounter Details +--------+ + + + + | Date | Type | Department | Care Team | Description | +--------+ + + + + | 03/19/ | Procedure | 6A Intra Op [facility] | | | | 2016 | Pass | [facility] | | | | | | Admitting Desk | | | | | | Located on the 9th | | | | | | floor [address] [facility] [address] | | | | | | [facility] | | | | | | [place], [place] | | | | | | [address] | | | +--------+ + + + [...]
--- OUTSIDE RECORDS SUMMARY | 2019-02-13 10:30 | XMS ---
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 Care History Medical/Surgical 01/11/2019 [facility] - PATIENT HAS AN APT WITH DR GONZALEZ ON 01/14/19 FOR FOLLOW UP TO ED VISITS. - PATIENT HAS DECLINED SERVICES FROM [facility]- C[facility]IAC RE[facility]. 10/18/2018 [facility] - Patient is currently established with [facility]. If patient is seen in the ED during business hours. Please contact CHWs at [facility]. Care Recommendation: This patient has had 5 or more Emergency Department visits in the last 12 months.\T\nbsp; Patient requires education on the scope and purpose of the ED as an acute care provider not a Primary Care Provider and should not be utilized for chronic conditions.\T\nbsp; These are guidelines and the provider should exercise clinical judgment when providing care. 12/07/2017 [facility] - Patient is currently utilizing PCP Dr Matson and has been referred to a lacing operator. - All chronic conditions please refer to [...] ED please contact Community Health WorkerLamar at [phone]. These are guidelines and the provider should exercise clinical judgment when providing care. [facility] ([facility] MO.) [facility] TOTAL 21 NOTE: Visits indicate total known visits. ED/UCC VISIT TRACKING (12 MO.) 02/13/2019 10:27 [facility] [place] TYPE: Emergency COMPLAINT: - DIZZY/CHILLS/NAUSEA 02/08/2019 20:35 [facility] [place] TYPE: Emergency COMPLAINT: - SOB 02/03/2019 20:41 [facility] [place] TYPE: Emergency COMPLAINT: - ABNORMAL LAB RESULT 02/01/2019 08:35 [facility] [place] TYPE: Emergency COMPLAINT: - AYLIN DIAGNOSES: - Presence of automatic (implantable) cardiac defibrillator - Atherosclerotic heart disease of [place] coronary artery without angina pectoris - Chronic ischemic heart disease, unspecified - Anemia in chronic kidney disease - Old myocardial infarction - Presence of coronary angioplasty implant and graft - meterman (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 - 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 - Chronic pain syndrome - Chronic kidney disease, stage 4 (severe) - Hypertensive chronic kidney disease with stage 1 through stage 4 chronic kidney disease, or unspecified chronic kidney disease - Chronic systolic (congestive) heart failure - Unspecified inflammatory spondylopathy, cervical region - senior living (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 of opiate analgesic - Chronic obstructive pulmonary disease, unspecified - Unspecified inflammatory spondylopathy, thoracic region - senior living (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 of antithrombotics/antiplatelets - Gastro-esophageal reflux disease without esophagitis - Hyperlipidemia, unspecified - Hypotension, unspecified - Acute kidney failure, unspecified 01/22/2019 19:53 [facility] [place] TYPE: Emergency COMPLAINT: - SOB 01/14/2019 06:06 [facility] [place] TYPE: Emergency COMPLAINT: - POSS RESPIRATORY DISTRESS 01/10/2019 08:02 [facility] [place] TYPE: Emergency COMPLAINT: - SOB DIAGNOSES: - Dyspnea, unspecified - Other senior care (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 - Pure hypercholesterolemia, unspecified - Acquired absence of other specified parts of digestive tract - Heart failure, unspecified - senior living (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 - Personal history [...] disease, or unspecified chronic kidney disease - meterman (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 - Personal history of nicotine dependence - Chronic obstructive pulmonary disease, unspecified - 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 DIAGNOSES: - low bp - Adverse effect of beta-adrenoreceptor antagonists, initial encounter - Weakness - Hypotension 08/18/2018 00:07 [facility] TYPE: Emergency COMPLAINT: - SOB DIAGNOSES: - Hypertensive heart disease with heart failure - Disorder of kidney and ureter, unspecified - Personal history of nicotine dependence - Other senior care (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 - Heart failure, unspecified - Shortness of breath - Old myocardial infarction - Chronic obstructive pulmonary disease with (acute) exacerbation - Pure hypercholesterolemia, unspecified 08/09/2018 09:56 [facility] [place] TYPE: Emergency COMPLAINT: - L HIP PAIN/NO INJURY DIAGNOSES: - Pain in left hip - Sciatica, left side - Pure hypercholesterolemia, unspecified - Essential (primary) hypertension - 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 - Old myocardial infarction 06/26/2018 06:43 [facility] [place] TYPE: Emergency COMPLAINT: - SOB DIAGNOSES: - Heart failure, unspecified - Shortness of breath - Hypertensive heart disease with heart failure - Chronic obstructive pulmonary disease with (acute) exacerbation - Other senior care (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 06/17/2018 02:41 [facility] [place] TYPE: Emergency COMPLAINT: - SOB DIAGNOSES: - Other senior care (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 - Dyspnea, unspecified - Essential (primary) hypertension - Presence of coronary angioplasty implant and graft - meterman (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 - Personal history of nicotine dependence - Shortness of breath 05/01/2018 07:47 [facility] [place] TYPE: Emergency DIAGNOSES: - Chest pain, unspecified - Non-ST elevation (NSTEMI) myocardial infarction - Acute pulmonary edema - Shortness of Breath 05/01/2018 03:23 [facility] TYPE: Emergency COMPLAINT: - SOB DIAGNOSES: - Shortness of breath - meterman (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 - Non-ST elevation (NSTEMI) myocardial infarction - Heart failure, unspecified - 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 - Personal history of nicotine dependence Plus 1 More Visit INPATIENT VISIT TRACKING (12 MO.) 02/08/2019 20:36 [facility] [place] TYPE: Observation COMPLAINT: - CHF DIAGNOSES: - senior living (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 of antithrombotics/antiplatelets - Acute respiratory failure with hypoxia - Hyperlipidemia, unspecified - Atherosclerotic heart disease of [place] coronary artery without angina pectoris - Chronic ischemic heart disease, unspecified - senior living (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 - Acute on chronic systolic (congestive) heart failure - Shortness of breath - Chronic pain syndrome - Presence of coronary angioplasty implant and graft - Old myocardial infarction - Gastro-esophageal reflux disease without esophagitis - Acute kidney failure, unspecified - 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 - Anemia in chronic kidney disease - Chronic kidney disease, stage 4 (severe) - Presence of automatic (implantable) cardiac defibrillator 02/03/2019 21:13 [facility] [place] TYPE: Observation COMPLAINT: - ALYIN DIAGNOSES: - Chronic ischemic heart disease, unspecified - Acquired absence of other specified parts of digestive tract - 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 - Presence of automatic (implantable) cardiac defibrillator - Chronic pain syndrome - Presence of coronary angioplasty implant and graft - Hyperlipidemia, unspecified - Hypotension, unspecified - meterman (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 of antithrombotics/antiplatelets - Chronic obstructive pulmonary disease, unspecified - Chronic kidney disease, unspecified - Unspecified inflammatory spondylopathy, cervical region - Essential (primary) hypertension - Presence of cardiac pacemaker - Acute kidney failure, unspecified - meterman (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 - Chronic kidney disease, stage 4 (severe) - Gastro-esophageal reflux disease without esophagitis - Hypertensive chronic kidney disease with stage 1 through stage 4 chronic kidney disease, or unspecified chronic kidney disease - Acute kidney failure, unspecified - Atherosclerotic heart disease of [place] coronary artery without angina pectoris - senior living (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 of opiate analgesic - Chronic systolic (congestive) heart failure - Old myocardial infarction - Unspecified inflammatory spondylopathy, thoracic region - Anemia in chronic kidney disease 02/01/2019 08:35 [facility] [place] TYPE: Observation COMPLAINT: - AYLIN DIAGNOSES: - meterman (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 of antithrombotics/antiplatelets - Chronic ischemic heart disease, unspecified - Hypertensive chronic kidney disease with stage 1 through stage 4 chronic kidney disease, or unspecified chronic kidney disease - meterman (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 of opiate analgesic - Presence of automatic (implantable) cardiac defibrillator - Presence of coronary angioplasty implant and graft - Acute kidney failure, unspecified - Hypotension, unspecified - Unspecified inflammatory spondylopathy, cervical region - Unspecified inflammatory spondylopathy, thoracic region - Old myocardial infarction - meterman (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 - Other senior care (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 - Chronic systolic (congestive) heart failure - Gastro-esophageal reflux disease without esophagitis - Hyperlipidemia, unspecified - Chronic obstructive pulmonary disease, unspecified - Anemia in chronic kidney disease - Chronic kidney disease, stage 4 (severe) - Chronic pain syndrome - Atherosclerotic heart disease of [place] coronary artery without angina pectoris 01/23/2019 14:11 [facility] [place] TYPE: Medical Surgical COMPLAINT: - SOB DIAGNOSES: - Acute kidney failure, unspecified - Unspecified inflammatory spondylopathy, thoracic region - Elevated white blood cell count, unspecified - Unspecified inflammatory spondylopathy, cervical region - Chronic obstructive pulmonary disease, unspecified - Hyperlipidemia, unspecified - Gastro-esophageal reflux disease without esophagitis - Hypokalemia - Chronic pain syndrome - Presence of coronary angioplasty implant and graft - Dependence on supplemental oxygen - 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 - Anemia in chronic kidney disease - Acute and chronic respiratory failure with hypoxia - senior living (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 - senior living (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 of antithrombotics/antiplatelets - Presence of automatic (implantable) cardiac defibrillator - Chronic kidney disease, stage 4 (severe) - senior living (current) use of opiate analgesic - Atherosclerotic heart disease of [place] coronary artery without angina pectoris - Acute on chronic systolic (congestive) heart failure - Old myocardial infarction - Constipation, unspecified 01/14/2019 06:07 [facility] [place] TYPE: Observation COMPLAINT: - CHF DIAGNOSES: - Presence of automatic (implantable) cardiac defibrillator - Acute respiratory failure with hypoxia - Atherosclerotic heart disease of [place] coronary artery without angina pectoris - senior living (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 of antithrombotics/antiplatelets - Shortness of breath - Chronic kidney disease, stage 4 (severe) - meterman (current) use of opiate analgesic - Chronic pain syndrome - senior living (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 - Gastro-esophageal reflux disease without esophagitis - Acute on chronic systolic (congestive) heart failure - Presence of coronary angioplasty implant and graft - Type 2 diabetes mellitus with diabetic chronic kidney disease - Hyperlipidemia, unspecified - Type 2 diabetes mellitus with hyperglycemia - Acute kidney failure, unspecified - 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 - Chronic ischemic heart disease, unspecified - Old myocardial infarction 12/11/2018 09:26 [facility] [place] TYPE: Medical Surgical COMPLAINT: - CHF DIAGNOSES: - Presence of automatic (implantable) cardiac defibrillator - Hyperlipidemia, unspecified - senior living (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 - Personal history of nicotine dependence - Hypotension due to drugs - Chronic obstructive pulmonary disease, unspecified - Cervicalgia - meterman (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 of antithrombotics/antiplatelets - Acute on [...] count, unspecified - Atherosclerotic heart disease of [place] coronary artery without angina pectoris - Acute kidney failure, unspecified - Other senior care (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 - Acute and chronic respiratory failure with hypoxia - Type 2 diabetes mellitus with diabetic chronic kidney disease - Gastro-esophageal reflux disease without esophagitis - Dependence on supplemental oxygen - senior living (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 of oral hypoglycemic drugs - Opioid dependence, uncomplicated 11/02/2018 22:09 [facility] [place] TYPE: Medical Surgical COMPLAINT: - DECOMPENSATED HEART FAILURE DIAGNOSES: - Hyperlipidemia, unspecified - Type 2 diabetes mellitus with diabetic chronic kidney disease - Chronic kidney disease, stage 3 (moderate) - Coronary angioplasty status - Personal history of nicotine dependence - Presence of automatic (implantable) cardiac defibrillator - senior living (current) use of opiate analgesic - Psychophysiologic insomnia - Chronic pain syndrome - Old myocardial infarction - meterman (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 of antithrombotics/antiplatelets - Chronic obstructive pulmonary disease, unspecified - Idiopathic sleep related nonobstructive alveolar hypoventilation - Gastro-esophageal reflux disease without esophagitis - Acute on chronic systolic (congestive) heart failure - Acute respiratory failure with hypoxia - senior living (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 of oral hypoglycemic drugs - senior living (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 - 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 - Atherosclerotic heart disease of [place] coronary artery without angina pectoris 10/16/2018 06:04 [facility] [place] TYPE: Observation COMPLAINT: - DECOMPENSATED HEART FAILURE DIAGNOSES: - Ischemic cardiomyopathy - Type 2 diabetes mellitus with diabetic chronic kidney disease - Chronic pain syndrome - Dependence on supplemental oxygen - Unspecified inflammatory spondylopathy, cervical region - Chronic obstructive pulmonary disease, unspecified - senior living (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 of oral hypoglycemic drugs - Personal history of nicotine dependence - senior living (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 - Presence of automatic (implantable) cardiac defibrillator - Other senior care (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 - Acute on chronic systolic (congestive) heart failure - Presence of coronary angioplasty implant and graft - Atherosclerotic heart disease of [place] coronary artery without angina pectoris - Old myocardial infarction - Chronic respiratory failure with hypoxia - Shortness of breath - Gastro-esophageal reflux disease without esophagitis - meterman (current) use of opiate analgesic - Hypertensive chronic kidney disease with stage 1 through stage 4 chronic kidney disease, or unspecified chronic kidney disease - meterman (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 of antithrombotics/antiplatelets - Chronic kidney disease, stage 3 (moderate) - Hyperlipidemia, unspecified 05/13/2018 16:21 [facility] TYPE: Cardiology DIAGNOSES: - Heart failure, unspecified - Atherosclerotic heart disease of [place] coronary artery without angina pectoris - Family history of other specified conditions - Atherosclerotic heart disease of [place] coronary artery with other forms of angina pectoris - Chronic systolic (congestive) heart failure - Coronary Artery Disease - Other forms of angina pectoris - Ischemic cardiomyopathy - Other forms of dyspnea - Essential (primary) hypertension - Presence of automatic (implantable) cardiac defibrillator 05/01/2018 07:47 [facility] [place] TYPE: General Medicine DIAGNOSES: - Acute pulmonary edema - Non-ST elevation (NSTEMI) myocardial infarction - Chest pain, unspecified - Illness, unspecified [email or web address]
[2019-02-13] MEDS ORDERED: DOXYCYCLINE HY100 MG PO (11:19)
--- NOTE | 2019-02-13 14:25 | EKG ---
[facility] [address] [place] [address] Signed Atrial-sensed ventricular-paced rhythm Abnormal ECG When compared with ECG of 08-FEB-2019 20:50, premature ventricular complexes are no longer present Vent. rate has decreased BY 77 BPM Confirmed by KIMMIE GONZALEZ MD ([id number]) on 02/13/2019 2:25:18 PM Electronically Signed By: KIMMIE GONZALEZ MD 02/13/19 1425 PATIENT NAME: RON MCKEON Electrocardiogram DATE OF : 53 PHYSICIAN: KIMMIE GONZALEZ MD REPORT #: [id number] REPORT IS CONFIDENTIAL AND NOT TO BE RELEASED WITHOUT AUTHORIZATION
== END 2019-02-13 11:29 | disposition home or self-care (01) ==
LOC: ED 10:27
DX: J06.9 Acute upper respiratory infection, unspecified (principal); I25.2 Old myocardial infarction; E78.00 Pure hypercholesterolemia, unspecified; I10 Essential (primary) hypertension; J44.9 Chronic obstructive pulmonary disease, unspecified; Z95.0 Presence of cardiac pacemaker; Z90.49 Acquired absence of other specified parts of digestive tract; Z79.899 Other long term (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
CPT/HCPCS: 71045; 93005; 93010; 99284-25

== ENCOUNTER 2019-11-10 01:25 | Observation (INO) | payer MEDICARE ==
[~2019-11-10] VITALS: Ht 175.3 cm; Wt 93.9 kg
[~2019-11-10 01:25] MED LIST changes: +DOXYCYCLINE HY100 MG PO; +METOLAZONE2.5 MG; +SPIRONOLACTONE25 MG; +TORSEMIDE10 MG; +TORSEMIDE20 MG PO
[2019-11-10] MEDS ORDERED: PEPCID20 MG PO (01:41)
--- NOTE | 2019-11-10 04:35 | NUR ---
0350 PATIENT ARRIVED VIA STRETCHER, TRANSFERED OUT OF BED INDEPENDENTLY TO STAND ON SCALE THEN TO SIT ON EDGE OF THE BED. PATIENT IS ALERT AND APPEARS ONLY MILDLY SOB WITH ACTIVITY. REPORTS FEELING IMPROVED EASE OF BREATHING. 5L OXYMASK, SWITCHED FOR 3L NC. PATIENT TOLERATING WELL. AT BEDSIDE. LUNG SOUNDS ARE CLEAR IN JESSICA UPPER LOBES WITH FINE CRACKLES IN THE BASES JESSICA. PATIENT REPORTS MAINTAINING 2G SODIUM RESTRICTION AND "ABOUT 1800 TO 2000" MLS FOR ORAL INTAKE. NO EDEMA NOTED IN LOWER EXTREMITIES. PATIENT REQUESTING COFFEE, 200 ML BLACK COFFEE PROVIDED. PATIENT VOIDED 300ML. GONE HOME. PATIENT SITTING AT EDGE OF BED WITH CALL LIGHT IN REACH.
--- NOTE | 2019-11-10 05:35 | NUR ---
PATIENT SITTING AT EDGE OF BED USING BEDSIDE TABLE TO PROP HIMSELF INTO A TRIPOD POSITION. PATIENT REPORTS THIS HIS NORMAL SLEEPING POSITION AT HOME. REPORTS FEELING SLIGHTLY BETTER AFTER NAPPING. REQUEST MORE COFFEE. DISCUSSED FLUID RESTRICTION AND PATIENT AGREEABLE TO WAIT UNTIL BREAKFAST TIME FOR HIS NEXT CUP. DENIES ANY FURTHER NEEDS. CALL LIGHT IN REACH.
--- NOTE | 2019-11-10 06:05 | NUR ---
PATIENT STOOD AT BEDSIDE TO USE URNAL. SCHEDULED LASIX PROVDIED. PATIENT INTERESTED IN BREAKFAST, MENU PROVIDED. TOLERATING 3L NC. CONTINUES TO SIT AT EDGE OF BED. CALL LIGHT IN REACH.
--- NOTE | 2019-11-10 06:40 | NUR ---
VS STABLE. PATIENT DENIES FEELING SOB. PARTIALLY RECLINED ON BED. TITRATED O2 TO 2L PER NC.
--- NOTE | 2019-11-10 10:15 | NUR ---
PT SITTING UP AT THE SIDE OF THE BED, ABLE TO TAKE PILLS EASILY. PT DENIES SITTING IN CHAIR OR BED TO ELEVATE FEET, NO NOTABLE EDEMA TO LEGS AT THIS TIME. PT STATES HE IS MOST COMFORTABLE SITTING UP, HE STATES "I CAN BREATH BETTER". PT IS ALERT AND ORIENTED X4
[2019-11-10] MEDS ORDERED: CARVEDILOL6.25 MG PO (11:00)
[2019-11-10] MEDS ORDERED: KLOR-CON 1010 MEQ PO (11:30)
[2019-11-10] MEDS ORDERED: GABAPENTIN100 MG PO (11:31)
--- NOTE | 2019-11-10 12:36 | NUR ---
Med rec completed via refill history provided by [facility] and patient.
--- NOTE | 2019-11-10 13:48 | NUR ---
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 Reviewed heart failure home care with patient. States he rarely eats out. cooks home meals. Has scales but has not been monitoring QD weights lately; patient agrees to resume QD symptom monitoring. Denies problems remembering or obtaining medications. Does not take NSAIDS. Has purchased a home exercise bike. Did attend cardiac rehab in [place] but it is unclear how many sessions. When I mentioned he may also qualify for pulmonary rehab he was unsure about a diagnosis of COPD and states he would attend NM at [place]. Patient encouraged to have a follow up appointment within 7-10 days post discharge. He will recieve a post discharge follow up call from this service.
--- NOTE | 2019-11-10 14:02 | NUR ---
FULL REPORT GIVEN FACE TO FACE WITH NOE HAMILTON. ALL QUESTIONS ANSWERED.
--- NOTE | 2019-11-10 14:21 | NUR ---
Spoke with Ashok. He lives in [place] in a 1 story house with 1 step. Has 02 in the home, denies other DME. Does not have a nebulizer in the home. He is disabled for the last 2 years following an MO. 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 He states he is service related with the [facility]. Plans on dc to home with his when meets criteria for dc.
--- NOTE | 2019-11-10 14:25 | NUR ---
PT MOVED TO ROOM 116 ON MED/SURG. ALL PERSONAL BELONGINGS WENT WITH PT.
--- NOTE | 2019-11-10 14:30 | NUR ---
PT ARRIVED FROM CCU. REPORT RECEIVED FROM ALFONSO SANTO. PT AMBULATES WITH SBA UP TO CHAIR. PT REPORTS 6/10 PAIN AND STATES "ITS BETTER BECAUSE I TOOK THAT NORCO." PT STATES THIS PAIN IS BASELINE. DENIES NEED FOR ADDITIONAL PAIN MEDICATION. PT REPORTS FEELING IN THE "GREEN" ZONE OF HEART FAILURE. REMAINS ON CHRONIC 2L O2 BY NC WITH O2 SATURATION OF 96%. LUNG SOUNDS SHOW CRACKELS IN BASES BUT OTHERWISE CLEAR. WATER AND COFFEE PROVIDED PER FLUID RESTRICITON. PT VERBALIZES UNDERSTANDING OF FLUID RESTRICTION. NO ADDITIONAL REQUESTS OR COMLAINTS. CALL LIGHT WITHIN REACH. FALL PRECAUTIONS REVIEWED WITH PT. PT VERBALIZES UNDERSTANDING.
--- NOTE | 2019-11-10 14:30 | NUR ---
PT SITTING ON SIDE OF BED, RESTING ON TABLE. PT USING O2 NC, AND SAID HE IS SO MUCH BETTER TODAY. PT IS HARD ON HIMSELF, KNOWS THE WARNING SIGNS, AND IS LEARNING TO RESPOND MUCH QUICKER. PT REQUESTED PRAYER AND SAID HE IS LEAVING TOMORROW! WILL FOLLOW NEEDED
--- NOTE | 2019-11-10 16:10 | NUR ---
PT CALL LIGHT ON. PT REQUESTS PAIN MEDICATION FOR 8/10 PAIN IN NECK AND BACK. PT WATCHING TV. NO ADDITIONAL REQUESTS OR COMPLAINTS. CALL LIGHT WITHIN REACH.
--- NOTE | 2019-11-10 16:15 | NUR ---
PT ARRIVED FROM CCU THIS SHIFT, HERE FOR CHF EXACERBATION. TOLERATING 1500 ML FLUID RESTRICTION AND 2 GRAM SODIUM DIET WELL. 2L O2 IN PLACE PER BASELINE. TELE IN PLACE WITH PACED RHYTHEM. DAILY WEIGHT. PT DECLINED SHOWER THIS SHIFT. PRN PAIN MEDICATION GIVEN FOR 6-8/10 CHRONIC NECK AND BACK PAIN. IV LASIX GIVEN WITH GOOD RESULTS. PT USES CALL LIGHT APPROPRIATLY.
--- NOTE | 2019-11-10 17:14 | NUR ---
MEDICATION DUE. PT RESTING WITH EYES CLOSED. AWAKENS TO MOVEMENT IN THE ROOM. MEDICATION GIVEN (SEE MAR). PT VERBALIZES UNDERSTANDING OF MEDICATION AND SIDE EFFECTS. PT DENIES NEED FOR A SNACK WITH POTASSIUM STATING IT DOES NOT USUALLY MAKE HIM FEEL NAUSEATED. PT WATCHING TV. NO ADDITIONAL REQUESTS OR COMPLAINTS AT THIS TIME. CALL LIGHT WITHIN REACH.
--- NOTE | 2019-11-10 19:59 | NUR ---
c/o 8/10 legs pain, O2 inplace, medicated with norco 1 tab. on fluid restriction
--- NOTE | 2019-11-10 20:50 | EKG ---
[facility] [address] [facility] [place] [address] Signed Atrial-sensed ventricular-paced rhythm Biventricular pacemaker detected Abnormal ECG When compared with ECG of 13-FEB-2019 10:46, Vent. rate has increased BY 4 BPM Confirmed by HUEY GORDON DO ([id number]) on 11/10/2019 8:49:43 PM Electronically Signed By: HUEY GORODN DO 11/10/192049 PATIENT NAME: RON MCKEON RACHEL Electrocardiogram DATE OF : 53 PHYSICIAN: HUEY GORDON DO REPORT #: [id number] REPORT IS CONFIDENTIAL AND NOT TO BE RELEASED WITHOUT AUTHORIZATION
--- NOTE | 2019-11-10 21:09 | NUR ---
O2 2LNC, chronic, no resp distress.Tele#[address], paced rhythm. Lungs clear bilat. legs 1+ edema le. Independent in room. Coop with assessment
--- NOTE | 2019-11-11 00:02 | NUR ---
Resting, no c/o pain, O2 @L NC inplace, pt turns self in bed, independent in room. call light at bedside
--- NOTE | 2019-11-11 04:39 | NUR ---
MEDICATED WITH 1 nORCO C/O NECK/LEGS/BACK PAIN. pT AWAKE, UP IN CHAIR, WALKING IN ROOM EARLIER, VOIDING QS.
--- NOTE | 2019-11-11 04:42 | NUR ---
PT TELE#7, PACED RHYTHM, NO C/O CP. STAND WEIGHT 94.1kG. hAS BEEN MEDICATED WITH tYLENOL X1 AND WITH NORCO X2 PER BACK/NECK/LEGS PAIN, EFFECTIVE. O2 2LNC CHRONIC. TRANSFERS SELF FROM BED TO CHAIR TO BR INDEPENDENT, VOIDING QS YELLOW URINE. TOLERATING 1500CC FLUID RESTRICTION WELL. PLEASANT, COOPERATIVE
--- NOTE | 2019-11-11 05:45 | NUR ---
Pt walked hallways up to room 119 and back to 118 and to room, O2 2L NC, no sob noted, tolerated well. no c/o pain or CP, tele inplace. On fluids restrictions. tolerating well. call light at hands reach. PT Up in chair tv.
--- NOTE | 2019-11-11 07:15 | NUR ---
PT SITTING UP IN CHAIR, DNEIES SOB ON 2LPNC. BEDSIDE REPORT RECEIVED FROM ALFONSO BURRIS. PT DENIES NEEDS OR CONCERNS A THIS TIME. CALL LIGHT AND H2O IN REACH.
--- NOTE | 2019-11-11 08:43 | NUR ---
patient is setting up in his cahir finished breakfast no other needs at this time.
--- NOTE | 2019-11-11 09:00 | NUR ---
PT SITTING UP IN CHAIR ALERT AND ORIENTED. PT VOICED READINESS FOR DISCHARGE. AM MEDS ADMINISTERED AND ASSESSMENT COMPLETED. CALL LIGHT AND H2O IN REACH. PT DENIES FURTHER NEEDS OR CONCERNS. PT DNIES SOB ON 2LPNC, PAIN OR NAUSEA. PT STATES "NO I'M FEELING GREAT AND FEEL LIKE IM READY TO GO HOME".
--- NOTE | 2019-11-14 09:07 | NUR ---
Post discharge heart failure follow up call completed. Patient denies symptoms or questions. f/u visit is with PCP tomorrow.I encouraged him to attend. Weight is down another 4 lb, to 203 lb today. today. Reviewed his medications and he states helps him keep track. Pt would like to continue to f/u with cardiac rehab services in [place].
== END 2019-11-11 10:08 | disposition home or self-care (01) ==
LOC: ED 01:25 → CCU 01:26 → MS 01:26 → CCU 01:26 → MS 14:21
PROVIDERS: ADMIT Student in an Organized Health Care Education/Training Program
DX: I50.23 Acute on chronic systolic (congestive) heart failure (principal); J96.01 Acute respiratory failure with hypoxia; N17.9 Acute kidney failure, unspecified; N18.4 Chronic kidney disease, stage 4 (severe); D63.1 Anemia in chronic kidney disease; I25.10 Atherosclerotic heart disease of native coronary artery without angina pectoris; K21.9 Gastro-esophageal reflux disease without esophagitis; G89.4 Chronic pain syndrome; E78.5 Hyperlipidemia, unspecified; Z95.5 Presence of coronary angioplasty implant and graft; Z79.899 Other long term (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; Z79.82 Long term (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; Z79.02 Long term (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 of antithrombotics/antiplatelets
CPT/HCPCS: 36415; 71045; 80048; 80053; 83735; 83880; 84484; 85025; 93005; 93010; 94640; 94760; 96374; 96376; 99285-25; G0378; J1940

== ENCOUNTER 2020-03-04 23:00 | Observation (INO) | payer MEDICARE ==
[~2020-03-04] VITALS: Ht 175.3 cm; Wt 96.8 kg
--- OUTSIDE RECORDS SUMMARY | ~2020-03-04 | XMS | Encounter Summary ---
Demographics + + + | Address | [address] | | | [place] [address] | + + + | Home Phone | | + + + | Preferred Language | Unknown | + + + | Marital Status | | + + + | Anabaptist Affiliation | Unknown | + + + | Race | Unknown | + + + | Ethnic Group | Unknown | + + + Author + + + | Author | [facility] | | | and [place] | + + + | Organization | [facility] | | | and [place] | + + + | Address | Unknown | + + + | Phone | Unavailable | + + + Support + + + + + | Name | Relationship | Address | Phone | + + + + + | [place] Will | E[place] | [place] | | | | | [phone] | | + + + + + Care Team Providers + +------+ + | Care Behavioral Health Director Name | Role | Phone | + +------+ + | Amy Olivares MD | PCP | | + +------+ + Reason for Visit + + + | Reason | Comments | + + + | Follow-up | | + + + | Coronary Artery | | | Disease | | + + + | Hyperlipidemia | | + + + | Hypertension | | + + + | Atrial Flutter | | + + + Follow Up (Routine) +--------+--------+ + + + + | Status | Reason | Specialty | Diagnoses / | Referred By | Referred To | | | | | Procedures | Contact | Contact | +--------+--------+ + + + + | Closed | | Cardiology | Diagnoses | Olivares, | Rahulsuwan, | | | | | Abdominal | Amy Dai MD | MD Lauren | | | | | aortic | [address] | [address] | | | | | aneurysm, | [address] | [address] | | | | | without | [place], | [place], | | | | | rupture | [place] [address] | [place] [address] | | | | | (HCC) ST | Phone: | Phone: | | | | | elevation | [phone] | [phone] | | | | | (STEMI) | Fax: | Fax: | | | | | myocardial | [phone] | [phone] | | | | | infarction | | | | | | | involving | | | | | | | other | | | | | | | coronary | | | | | | | artery of | | | | | | | anterior | | | | | | | wall (HCC) | | | | | | | Atherosclero | | | | | | | tic heart | | | | | | | disease of | | | | | | | ak chin | | | | | | | coronary | | | | | | | artery | | | | | | | without | | | | | | | angina | | | | | | | pectoris | | | | | | | Peripheral | | | | | | | vascular | | | | | | | disease, | | | | | | | unspecified | | | | | | | (HCC) | | | | | | | Presence of | | | | | | | automatic | | | | | | | (implantable | | | | | | | ) cardiac | | | | | | | defibrillato | | | | | | | r | | | | | | | Procedures | | | | | | | FUP | | | +--------+--------+ + + + + Encounter Details +--------+---------+ + + + | Date | Type | Department | Care Team | Description | +--------+---------+ + + + | 03/24/ | Office | [facility] [place] | Jenny, | Paroxysmal atrial | | 2019 | Visit | CARDIOLOGY [address] | Hansa, SPECIAL EDUCATION ASSOCIATE [address] | flutter (HCC) | | | | [place], | [place], | (Primary Dx); PAD | | | | [place] [address] | [place] [address] | (peripheral artery | | | | [phone] | [phone] | disease) ([facility]); | | | | | | Acute anterior wall | | | | | | AK ([facility]); Coronary | | | | | | artery disease | | | | | | involving ak chin | | | | | | coronary artery of | | | | | | ak chin heart without | | | | | | angina pectoris; | | | | | | Ischemic | | | | | | cardiomyopathy; | | | | | | Abdominal aortic | | | | | | aneurysm (AAA) | | | | | | without rupture | | | | | | ([facility]); Benign | | | | | | essential | | | | | | hypertension; Acute | | | | | | on chronic systolic | | | | | | congestive heart | | | | | | failure ([facility]); | | | | | | Atherosclerosis of | | | | | | ak chin coronary | | | | | | artery of ak chin | | | | | | heart with stable | | | | | | angina pectoris | | | | | | ([facility]); Thrombsis of | | | | | | left atrial | | | | | | appendage following | | | | | | myocardial | | | | | | infarction ([facility]); | | | | | | Mixed | | | | | | hyperlipidemia; | | | | | | Biventricular ICD | | | | | | (implantable | | | | | | cardioverter-defibri | | | | | | llator) in place; | | | | | | Implantable | | | | | | defibrillator | | | | | | reprogramming/check | +--------+---------+ + + + Social History + + + +--------+ + | Tobacco Use | Types | Packs/Day | Years | Date | | | | | Used | | + + + +--------+ + | Former Smoker | Cigarettes | 2 | 45 | Quit: 03/08/2017 | + + + +--------+ + + +---+---+---+ | Smokeless Tobacco: | | | | | Former User | | | | + +---+---+---+ + + +---------+ + | Alcohol Use | Drinks/Week | oz/Week | Comments | + + +---------+ + | No | | | | + + +---------+ + + + + | Sex Assigned at | Date Recorded | | | | + + + | Not on file | | + + + documented as of this encounter Last Filed Vital Signs + + + + + | Vital Sign | Reading | Time Taken | Comments | + + + + + | Blood Pressure | 98/62 | 03/24/2019 1:26 PM | | | | | PDT | | + + + + + | Pulse | 72 | 03/24/2019 1:26 PM | | | | | PDT | | + + + + + | Temperature | - | - | | + + + + + | Respiratory Rate | 16 | 03/24/2019 1:26 PM | | | | | PDT | | + + + + + | Oxygen Saturation | - | - | | + + + + + | Inhaled Oxygen | - | - | | | Concentration | | | | + + + + + | Weight | 89.4 kg (197 lb 1.5 | 03/24/2019 1:26 PM | | | | oz) | PDT | | + + + + + | Height | 175.3 cm (5' 9") | 03/24/2019 1:26 PM | | | | | PDT | | + + + + + | Body Mass Index | 29.11 | 03/24/2019 1:26 PM | | | | | PDT | | + + + + + documented in this encounter Patient Instructions Patient Instructions Jeanie August Director Of Early Childhood - 03/24/2019 1:30 PM PDT1. Continu e Lisinopril at 2.5 mg once daily 2. Increase Metoprolol Succinate to 25 mg once daily 3. Check blood pressure and pulse twice daily for two weeks and return the log to our offic e. 4. He will follow up in 2 months for office visit with device check, or sooner with concern s. documented in this encounter Progress Notes Hasna Alvarado ARNP - 03/24/2019 1:30 PM PDT PATIENT NAME: Bob Will : 1955: AGE: 63 y.o. ICD Evaluation Report March 24, 2019 Reason for evaluation: routine Indication for ICD: Ischemic cardiomyopathy (I25.5, 414.8); Implantable defibrillator reprogramming/check (Z45 .02, V53.32); Acute on chronic systolic congestive heart failure (HCC) (I50.23, 428.23, 428. 0); Biventricular ICD (implantable cardioverter-defibrillator) in place (Z95.810, V45.02) Patient was seated and reclined and device was interrogated. Defibrillator parameters, bat maurice status, percentages pacing and significant arrhythmias were reviewed. Heart rate histog reji were assessed for adequate heart rate response and any alerts reviewed. Appropriate sharmaine d impedance testing was performed. Pacing impedances were reviewed for any significant moore es. Sensing tests were performed by decreasing LRL. Adequacy of pacing thresholds were teste d by increasing LRL for each lead and recorded for loss of capture. Final outputs were asses sed for adequate safety margins. Please see the scanned Paceart report and device PDF for further details. Data collected by Kelly Rodriguez RN The technical aspect of downloading device data was supervised by Lauren Figueroa MD Underlying rhythm: sinus rhythm 75 beats. 3 mode switch episodes accounting for <0.1% of the time. The longest occurred 03/04/19 at 1 2:33 AM for 10 minutes 11 seconds. EGM is consistent with atrial flutter with variable condu ction with rate 70-87 beats. 0 ventricular high rate episodes. No tachycardia therapies recommended or delivered. PVC singles <0.2/hour PVC runs <0.1/hour Biventricular pacing 98.3% Histogram good. Battery longevity 8.4 years. Normal and stable device function. Quarterly remote monitoring. Hansa Morse ARNP - 03/24/2019 1:30 PM PDT PATIENT NAME: Bob Will : 1955: AGE: 63 y.o. PRIMARY CARE: Amy Olivares MD OUTPATIENT FOLLOW UP VISIT Date of Service: 03/24/2019 HISTORY OF PRESENT ILLNESS: Bob Will is a 63 y.o. male with a history of coronary artery disease post recen t anterior wall AK, post PTCA and stents of the left main, LAD and LCx on 03/15/17, cardiac sh ock, left atrial appendage thrombus, recent status post stents to, RN DISEASE MANAGEMENT-D placement in [facility] o n 10/17/2017.Heis being seen today for follow up cardiomyopathy and coronary artery dise ase. He is being seen today for follow up with device interrogation. He was last seen 12/22/2018 at which time he will decrease Entresto to the adequate dose of 97/103 mg twice a day. Check BMP in 1 month. check blood pressure and pulse twice daily for two weeks and return the log to our office starting in 2 weeks and then start titrating meto prolol increases as recommended by Advanced heart failure team and continue close monitoring of blood pressure. He will follow up in 3 months for office visit and device interrogation , or sooner with concerns. He will have fasting labs prior to visit for lipid profile, CMP and CBC, if not done prior by another provider. Since that time, he saw his PCP at the [facility] on 10/21/18 for a follow up on his chroni c medical illness and back pain, there was no medication changes. On 02/08/19-02/10/19 he was ho spitalized at [facility] due to decompensated chronic systolic heart failure, he w as treated with metolazone 2.5 mg for 5 days and doxycycline for possible bronchitis. He sen t in his blood pressure log and his metoprolol was increase to 75 mg in the evening and 50 m g in the mornings. He had a echocardiogram done on 11/03/2018. Patient's states that his PCP has changed several of his medications. He states that they decreased the lisinopril and decrease the metoprolol and stop the Entresto. He is at this p oint in a very small amount of metoprolol and lisinopril. His ejection fraction on his late st echocardiogram has decreased to his prior. He has had a fair energy level. He tries to stay active. He has not had any chest pain or discomfort at rest or with exertion. his shortness of breath has been getting worse He h as not had any lightheadedness or dizziness. He has not noticed palpitations. He has not h ad leg swelling. He is able to sleep laying down at night without any symptoms of shortness of breath. He had used his CPAP machine once since he just got it yesterday, He just had a sleep study done last week MEDICAL, SURGICAL, AND PERSONAL HISTORY Past Medical, Surgical, Family, and Social History are reviewed in EPIC. CURRENT PROBLEMS Patient Active Problem List Diagnosis Acute anterior wall AK Coronary artery disease involving ak chin coronary artery of ak chin heart without angina pectoris Ischemic cardiomyopathy RN DISEASE MANAGEMENT-D (AICD) [employer] 10/16/17 [facility] Stecker Implantable defibrillator reprogramming/check H/O atrial flutter GERD (gastroesophageal reflux disease) PAD (peripheral artery disease) Abdominal aortic aneurysm (AAA) without rupture Actinic keratosis Basal cell carcinoma of lower extremity Benign essential hypertension Benign neoplasm of skin Benign prostatic hyperplasia without urinary obstruction Acute on chronic systolic congestive heart failure Coronary atherosclerosis Family history of malignant neoplasm of gastrointestinal tract Family history of stroke Family history of sudden Generalized pain Hypercholesterolemia Impotence of organic origin Metabolic syndrome X Mixed hyperlipidemia Neck pain Neoplasm of uncertain behavior of skin of trunk Nocturia Polyp of colon COPD (chronic obstructive pulmonary disease) Rhinorrhea Fatigue Acute delirium Cervical spondylosis without myelopathy Cervicogenic headache Dyspnea Influenza, pneumonia Post traumatic stress disorder Prediabetes Primary insomnia Stenosis of coronary artery stent 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 Chronic kidney disease, stage III (moderate) Hypertension, renal disease, stage 1-4 or unspecified chronic kidney disease Secondary hyperparathyroidism Anemia in stage 3 chronic kidney disease CURRENT MEDICATIONS Current Outpatient Medications Medication Sig Dispense Refill acetaminophen (TYLENOL) 500 mg tablet Take 1,000 mg by mouth Daily as needed. amiodarone (PACERONE) 200 mg tablet TAKE TWO TABLETS BY MOUTH EVERY DAY 180 tablet 3 aspirin 81 MG tablet Take 81 mg by mouth Daily. atorvaSTATin (LIPITOR) 80 MG tablet TAKE ONE TABLET BY MOUTH EVERY DAY IN THE EVENING 9 0 tablet 3 Cholecalciferol (VITAMIN D-3) 83466 units CAPS Take by mouth Once a week. clopidogrel (PLAVIX) 75 mg tablet Take 1 tablet by mouth Daily. 30 tablet 11 ferrous sulfate 325 mg tablet Take 325 mg by mouth daily (with breakfast). gabapentin (NEURONTIN) 100 mg capsule Take 100 mg by mouth 2 times daily. HYDROcodone-acetaminophen (NORCO) 10-325 mg per tablet Take 1 tablet by mouth as needed . lisinopril (PRINIVIL,ZESTRIL) 2.5 MG tablet Take 2.5 mg by mouth Daily. Melatonin 10 MG CAPS Take 10 mg by mouth nightly. metOLazone 2.5 mg tablet Take 2.5 mg by mouth Three times a week. metoprolol succinate (TOPROL-XL) 25 mg 24 hr tablet Take 12.5 mg by mouth Daily. nitroglycerin (NITROSTAT) 0.[address] 1 tablet under the tongue every 5 shai janeth as needed for Chest pain. 25 tablet 3 potassium chloride (KLOR-CON) 10 mEq CR tablet Take 20 mEq by mouth 2 times daily. raNITIdine (ZANTAC) 150 MG capsule Take 150 mg by mouth nightly. torsemide (DEMADEX) 20 mg tablet Take 40 mg by mouth 2 times daily. traMADol (ULTRAM) 50 mg tablet Take 150 mg by mouth Twice daily as needed. No current facility-administered medications for this visit. ALLERGIES Allergies Allergen Reactions Ondansetron Other (See Comments) Twitching and numbness of arm Promethazine Other (See Comments) Twitching and numbness of arm ROS Review of Systems Constitutional: Positive for malaise/fatigue. Respiratory: Positive for shortness of breath (has gotten worse ). Cardiovascular: Negative. Negative for chest pain, palpitations and leg swelling. Neurological: Negative. Negative for dizziness and weakness. Lightheadedness - No Endo/Heme/Allergies: Negative. Does not bruise/bleed easily. OBJECTIVE: PHYSICAL EXAM BP 98/62 | Pulse 72 | Resp 16 | Ht 1.753 m (5' 9") | Wt 89.4 kg (197 lb 1.5 oz) | BMI 29.11 kg/m Physical Exam Constitutional: He is oriented to person, place, and time. He appears well-developed and we ll-nourished. Male individual arrives with his , without acute distress. He is utilizing a walker Neck: Normal carotid pulses and no JVD (no JVD) present. Carotid bruit is not present. Cardiovascular: Normal rate, regular rhythm, S1 normal, S2 normal, normal heart sounds and intact distal pulses. PMI is not displaced. Exam reveals no gallop and no friction rub. No murmur heard. Pulses: Carotid pulses are 2+ on the right side, and 2+ on the left side. Radial pulses are 2+ on the right side, and 2+ on the left side. Posterior tibial pulses are 2+ on the right side, and 2+ on the left side. Pulmonary/Chest: Effort normal. No accessory muscle usage. No respiratory distress. He has no decreased breath sounds. He has no wheezes. He has rhonchi (A little crackels at the base s) in the right lower field and the left lower field. He has no rales. Abdominal: Soft. Normal appearance and normal aorta. He exhibits no abdominal bruit. There is no hepatosplenomegaly. There is no tenderness. Musculoskeletal: Normal range of motion. He exhibits no edema. Neurological: He is alert and oriented to person, place, and time. Gait normal. Skin: Skin is warm and dry. No cyanosis. Nails show no clubbing. Psychiatric: He has a normal mood and affect. His mood appears not anxious. He does not exh ibit a depressed mood. Vitals reviewed. ECG: I personally independently reviewed ECG tracing during this visit (interpreted and redd led by another provider): Results for orders placed or performed during the hospital encounter of 03/24/2019 ECG 12 lead Result Value Ref Range INTERPRETATION TEXT Atrial-sensed ventricular-paced rhythm heart rate 72 bpm LAB RESULTS reviewed during visit today primarily from [facility]: LIPID Lab Results Component Value Date CHOL 94 (L) 06/10/2018 TRIG 211 (H) 06/10/2018 HDL 26 (L) 06/10/2018 LDL 26 06/10/2018 CHOLHDL 3.2 (A) 10/20/2018 LDLEX 31 10/20/2018 HDLEX 21 10/10/2017 TRIGEX 131 10/10/2017 CHOLEX 89 10/10/2017 CHEMISTRY Lab Results Component Value Date GLU 127 (H) 08/26/2018 GLUEX 129 03/08/2019 NA 136 08/26/2018 NAEX 135 03/08/2019 K 5.1 08/26/2018 KEX 3.4 03/08/2019 CL 105 08/26/2018 CLEX 85 03/08/2019 CO2 24 08/26/2018 CO2EX 38 03/08/2019 CALCIUM 8.6 08/26/2018 ALKPHOS 76 08/26/2018 AST 23 08/26/2018 ASTEX 20 12/20/2018 ALT 31 08/26/2018 ALTEX 41 12/20/2018 BILITOT 0.6 08/26/2018 CREA 2.01 (H) 08/26/2018 BUN 37 (H) 08/26/2018 EGFR 42 (L) 05/21/2018 EGFREX 32 03/08/2019 CREEX 2.07 03/08/2019 HEMATOLOGY Lab Results Component Value Date WBC 8.9 08/26/2018 WBCEX 7.6 03/08/2019 HGB 12.8 (L) 08/26/2018 HGBEX 10.8 03/08/2019 HCT 40.7 08/26/2018 HCTEX 34.4 03/08/2019 PLT 180 08/26/2018 PLTEX 275 03/08/2019 Lab Results Component Value Date BNP 366 (H) 06/10/2018 BNPEX 881 03/07/2019 I reviewed records from PCP for office visit on 10/21/2018 which is summarized in the HPI. RESULTS- I reviewed reports from [facility]: Echocardiogram on 11/03/18 shows this was a technically difficult study with suboptimal view s, the left ventricle is mildly dilated severely impaired systolic function EF 25-30%. Akine tic anterior, anteroseptal, inferosepal, inferior and apical segments, mild tricuspid regurg itation with moderate left atrial enlargement, there is no pericardial effusion, compared wi th the findings of the prior study, there has been no significant change, by Rocio vera Above data and testing is reviewed this visit; testing below is historical data unless othe rwise specified. ASSESSMENT: 1. Coronary artery disease presented with acute anterior wall STEMI and cardiogenic shock a nd ischemic cardiomyopathy A. Angiography and stent 03/15/2017 shows successful PCI with placeme nt of 3.0X23 stent in the distal LM and ostial LAD reducing a 100% stenotic lesion to 0% res idual stenosis, successful PCI with placement of 2.5X18 stent in the ostial LCx reducing a 9 0% stenotic lesion to 0% residual stenosis. Monse Ross MD. Patient wascomplicated wit h dissection/thrombosis of left main, causing cardiogenic shock requiring IABP, pressor (dop amine, norepinephrine). [facility] on divert. Patient wasn' t transferred to [facility]. B. Echocardiogram 03/17/2017 shows LV ejection fraction is severely de creased, visually estimated left ventricular ejection fraction is 20 - 25%, left ventricular systolic thickening is segment allyabnormal,mildly reduced RV systolic function. Normal RV size, no significant valvular abnormalities seen, compared to the most recent exam dated , 03/15/2017, there is no significant changes C. At [facility], patient had another STEMI code 03/29, with anterior in volvement on EKG with inferior reciprocal depressions--and patient started on heparin drip w ith full dose aspirin, then s/p repeat angiography without acute finding: "patent stent sara ersing the LM to LAD and patent stent in the proximal LCX,discrete thrombi seen in any ves marry...overall improved flow compared to 03/15 acute angiogram." TTE 03/30 with previously seen wall motion abnormalities and improved systolic function. Patient was started on ASA 81mg da taiwo, clopidogrel 75mg po daily, atorvastatin 40mg po daily, and metoprolol succinate 25mg da taiwo--which he will continue on discharge. Low-dose lisinopril and ISMN were added as well. 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 He wias dischargeed with a LifeVest for VT/VF protection in the short term as he recovers (too soon for ICD consideration). D. Echocardiogram 03/30/2017 shows left ventricular cavity size is n ormal, visually estimated left ventricular ejection fraction is 30 - 35%, left ventricular s ystolic thickening is segmentally abnormal, right ventricular size, thickness and function a re normal, compared to the most recent exam dated, 03/19/17, the LVEF has improved slightly , segmental wall motion abnormalities remain.Left atrial appendage was noted and patient w as started on heparin, followed with warfarin. E. Echocardiogram 05/07/17 shows, Mild left atrial dilatation, Nor mal left ventricular size. There is a segmental wall motion abnormality with thinning and se frannie hypokinesis of the entire anterior and anteroseptal region. Overall, left ventricular s ystolic function is moderately decreased. LVEF is 35-40%, Grade 1 left ventricular diastolic dysfunction,Mild mitral valve agitation, Normal right-sided pressure, Normal IVC with luis l respiratory collapse. F. Angiography and stent 03/15/2017 successful PCI with placement of 3.0X23 stent in the distal LM and ostial LAD reducing a 100% stenotic lesion to 0% residual stenosis, successful PCI with placement of 2.5X18 stent in the ostial LCx reducing a 90% chery notic lesion to 0% residualstenosis. G. Echocardiogram 06/04/17 shows Mild left atrial dilatation, Normal left ventricular size. There is a mild hypokinesis of the anterior wall. Overall, left vent ricular systolic function is low-normal. LVEF is 50-55%, Normal valvular structure, Mild pul monary hypertension with a peak systolic pressure 40-45 mmHg,Normal IVC with normal respirat ory collapse,When compared to echocardiography on 05/07/17, left ventricular systolic functio n is significantly improved and now normalized. H. Echocardiogram 10/03/17 shows the number of aortic valve leaflets cannot be identified, the left atrium is mildly dilated, normal left ventricular cavity siz e, mild concentric left ventricular hypertrophy, ejection fraction is visually estimated at 40%, thinning and severe hypokinesis distal anterior, anterior septal, and apical segments, aortic root dimension within normal limits, mild mitral regurgitation present, no evidence o f any pericardial effusion, the pulmonic valve was not well visualized, normal right atrial size, normal right ventricular size and function, structurally normal tricuspid valve withou t significant stenosis or regurgitation, Insufficient amount of tricuspid regurgitation for estimation of pulmonary artery pressures, when compared with images of previous echo 06/04/17 , no significant changes. I. On 10/03/2017 the patient is presenting with fever, leukocytosis , possible pneumonitis on chest x-ray, and high grade ostial LAD and circumflex in-stent chery noses with new left bundle branch block and elevated troponin. The patient's primary illne ss may be pneumonitis with septic shock with resulting hypotension causing myocardial ischem ia. The patient will require coronary revascularization at some point. I recommend that we continue treating the patient with broad-spectrum antibiotics, fluid support, ventilatory support and pressors as needed. The patient's left ventricular filling pressures and unch anged left ventricular function and echocardiogram do not suggest acute cardiac decompensati on as his primary reason for hypotension. If the patient shows signs of cardiac instabilit y we will transfer the patient to [facility] for consideration of urgent coronary revascularizatio n. J. Angiogram done by Dr. Gomez/Vandana on 10/03/2017 shows Systemic hypotension, upper normal left ventricular end-diastolic pressure. Severe in-stent stenosis of left main to ostial LAD stent. Severe in-stent stenosis ostial proximal left circumflex stent. Mild to moderate RCA disease.ANNA grade 1 flow to distal LAD K. Transthoracic Echocardiogram 10/11/17 shows the left ventricular c avity size is normal, the LV function is severely abnormal, left ventricular systolic thicke saul is segment ally abnormal, visually estimated left ventricular ejection fraction is 30-3 5%, RV cavity size is normal, RV global systolic function is mildly reduced, there is mild dial ation of the as sending aorta, compared to the most recent exam dated 03/30/17, the LVF F is similar. L. Cardiac Cath ordered by Arya Christian 10/15/17 shows successful percutaneous coronary continue aggressive cardiac risk factor management , intervention to the ostial left circumflex with one 3.0 x 18 mm resolute oseas drug - eluting stent , success ful percutaneous coronary transluminal angioplasty of the distal left main extending into the left anterior descending coronary artery with a final kissing balloon inflation with a 3 .5 mm noncompliant and 2.5 mm complaint balloon, recommendations ; continue clopidogrel 75 m g daily for at least 12 months , therapy given bifurcation and left main stenting with mul tiple stent layers if tolerating , continue with Asprin 81 mg daily indefinitely , continue aggressive cardiac risk management , optimal medical care for ischemic cardiomyopathy M.Echocardiogram 04/02/2018 shows mild biatrial dilatation, mild l eft ventricular dilatation with mild eccentric left ventricular hypertrophy, there is a segm ental wall motion abnormality with severe hypokinesis of the entire anterior and anterosepta l region. Overall, left ventricular systolic function is moderately decreased. LVEF is 30-35 %, grade 1 left ventricular diastolic dysfunction, mild mitral valve regurgitation, normal r ight-sided pressure, normal IVC with normal respiratory collapse, when compared to echocardi ogram on 11/25/17, left ventricular systolic function continued to deteriorate. N. Today, 03/24/2019, he is symptomatic.he has no angina with exerti on or at rest, his dyspnea has been increasing, he states that his shortness of breath has i mproves the past 3 weeks and with Torsemide 60 mg twice daily. He is on a medical regimen with dual antiplatelet therapy, aspirin, JULIAN-I, beta-clotilde and statin. There are no signs or symptoms of overt congestive heart failure, and his physical exam shows no significant fl uid retention. He is in class III- Symptoms with minimal exertion of the [place] [employer] ociation functional class. Heart failure stage C-diagnosed heart failure with symptoms. He w ill need to get taken off Plavix and start on a anticoagulant and given his history of in st ent stenosis and increase in dyspnea, he is a candidate for stress test. He has a history of cardiac issues multiple stents, heart failure. 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 He does h ave a suspected diagnosis of coronary artery disease. He has had an abnormal ECG in the past 30 days. He has symptoms of atypical angina. He has risk factors including:cigarette smokin g, abnormal lipid profile, diabetes and hypertension. He does not have a family history of p remature coronary artery disease. He is considered to be high risk. 2. Ischemic Cardiomyopathy: Heart failure with reduced ejection fraction A. Transthoracic Echocardiogram 10/11/17 shows the left ventricular c avity size is normal , the LV function is severely abnormal, left ventricular systolic thick ening is segment ally abnormal, visually estimated left ventricular ejection fraction is 30- 35%, RV cavity size is normal, RV global systolic function is mildly reduced, there is mil d dial ation of the as sending aorta, compared to the most recent exam dated 03/30/17, the LV FF is similar. B. Pet Scan 10/13/17 shows No Significant tracer uptake within mid- t o - distal anterior wall/interventricular septum and apex corresponding to same non- perfuse d areas seen on myocardial rest perfusion scan , compatible with nonviable myocardium in the se regions. C. S/P [employer] RN DISEASE MANAGEMENT-D 10-16-17 Dr Darby, [facility]. Ice interrogation today shows one episode of 29 beats of SVT with no therapy required. D. Echocardiogram 11/24/2017 shows Mild left atrial dilatation, mild left ventricular dilatation with him mild to moderate eccentric left ventricular hypertroph y, there is a segmental wall motion abnormality with severe hypokinesis of the entire anteri or and anteroseptal region, overall,left ventricular systolic function is moderately decre ased, LVEF is 35-40%, mild mitral valve regurgitation, mild tricuspid valve regurgitation, b orderline pulmonary hypertension with a peak systolic pressure of 35-40 mmHg, pacemaker lead in the right ventricle, normal IVC with normal respiratory collapse. E. patient has been seen by [facility] failure group. Dr. Mamta dalton and Dr. Barbosa resulted in the case. The recommendations were to keep patient on amiodarone for at least 6 months. He was to up titrate Entresto to maximum dose and the n to start up titrating metoprolol succinate. Once the patient gets to complete general me dical therapy to maximum doses then he would have a right heart catheterization to take some baseline measurements. He probably will be needing to go back to [place] in the summer. F. Echocardiogram on 11/03/18 shows this was a technically difficult study with suboptimal views, the left ventricle is mildly dilated severely impaired systoli c function EF 25-30%. Akinetic anterior, anteroseptal, inferosepal, inferior and apical segm ents, mild tricuspid regurgitation with moderate left atrial enlargement, there is no perica rdial effusion, compared with the findings of the prior study, there has been no significant change, by Rocio Pearl. G. Today, 03/24/2019, his device interrogation shows normal and stable device function as d escribed in procedure report. He does have remote monitoring with [employer]. H. Today, 03/24/2019, he is symptomatic. He is on a heart failure medical regimen including JULIAN-I and beta-clotilde. He uses loop diuretic daily.He is on torsemide 60 mg twice daily. H e was taken off entresto when he was in the emergency department. He would benefit from up-t itration of heart failure medication at this time. He will benefit from increase his metopro lol Succinate to 25 mg once daily. There are no signs or symptoms of overt congestive heart failure, and his physical exam shows no significant fluid retention. He is in class II- Sy mptoms with moderate exertion of the [place] [employer] functional class. Heart fail ure stage C-diagnosed heart failure with symptoms. 3. Ventricular tachycardia: A. Electrophysiology Study 10/16/17 shows positive EP study for induc ible ventricular tachycardia. B.In remote interrogation he had 65 episodes of treated VT. He is n ot on any antiarrhythmic. He is going to be seen in [place] so we will let EP know about it so they can assist with recommendations about treatment . He may be a candidate for amiodar one. C. 48-HOUR HOLTER MONITOR REPORT 08/26/2018 - The predominant rhythm is sinus r hythm with ventricular paced via ICD with the heart rate ranging between 52 and 80 beats per minute. The average heart rate was 63 beats per minute during the 48:32 hour recording. 1 0 ventricular singles. 320 runs of sinus bradycardia with the longest run 4535 beats at a mi nimum rate of 52 beats per minute (10:04-2). The patient did not return a diary or report an y symptoms. D. Today, 03/24/2019, he feels palpitations are well controlled on current linda men. He has not had any episodes of palpitations. No recurrent episodes of VT 4. Left atrial appendage thrombus. Not otherwise addressed today 03/24/2019. A. Noted on MARKY in the OR during ECMO decannulation. Completedhep jennie gtt bridge 03/29 to therapeutic warfarin. Not on warfarin any more, no evidence of throm bus in last echocardiogram 5. Paroxysmal atrial flutter. A. Episode was seen while was hospitalized a week ago. This was a fter his AK and at the same time patient was having ventricular tachycardia. He was initia macho on amiodarone and then discontinued before discharge. The plan is to monitor through his device and see if this is a problem that needs to be addressed. Patient is not on anticoa gulation he was left that way from [facility]. Patient has had several GI bleeds and he felt at that point that he is bleeding risk are higher therefore they will be possibility of reiniti ating anticoagulation if patient has more episodes of paroxysmal atrial flutter. B. Today, 03/24/2019, he is on rhythm and rate control with amiodarone and metoprolol. His atrial flutter has come back for 3 episodes for a few seconds. <0.1% of the time with patie nt being asymptomatic. He alicia any chest pain or palpitation. His device check today showe d artrial flutter episodes, he will increase his metoprolol succinate to 25 mg once daily. I f his artrial flutter continues with the increase of metoprolol succinate we will discuss a possible ablation. We will initiated anti coagulation if persists. 6. Positive screening for PAD. Not otherwise addressed today 03/24/2019. A. Vas segmental pressures legs 11/24/2017 abnormal left ankle brach ial index of 0.91 consistent with single segment disease. 7. Normocytic anemia Not otherwise addressed today 03/24/2019. 8. Stage III chronic kidney disease A. eGFR is 34 on 08/2018, patient accidentally has been taking doub le the dose of Entresto that he was recommended PLAN: 1. Increase Metoprolol Succinate to 25 mg once daily to help with his atrial flutter. If th e increase of Metoprolol Succinate does not help decrease his episodes of artrial flutter we will discuss a possible ablation. If persist need anticoagulation and d/c Plavix. 2. He will follow up in 2 months for office visit and device interrogation, or sooner with concerns. He will have stress test and echocardiogram to evaluate his ejection fraction si nce his symptoms have worsened and his heart failure medications have changed so much. Jeanie Candelario, Director Of Early Childhood am acting as a scribe on behalf of, and in the presenc e of ADARSH Stevens. - Jeanie August Director Of Early Childhood 03/24/2019 12:50 Hansa Candelario ARNP, personally performed the services described in this documentati on, as scribed in my presence and it is both accurate and complete. -ADARSH Stevens 03/24/2019 Portions of this chart may have been created with [employer] voice recognition software. Occasi onal wrong-word or sound-alike substitutions may have occurred due to the inherent canseco itations of voice recognition software. Please read the chart carefully and recognize, using context, where these substitutions have occurred. documented in this encounter Plan of Treatment +--------+ + + + + | Date | Type | Specialty | Care Team | Description | +--------+ + + + + | 03/12/ | Office | Nephrology | Lit[place], | | | 2019 | Visit | | ADARSH [address] | | | | | | [address] | | | | | | [address] | | | | | | [id number] | | | | | | | | +--------+ + + + + | 04/16/ | Office | Cardiology | Alin Anderson | | | 2019 | Visit | | MD Cheryl Arreguin | | | | | | [address] | | | | | | [place] [address] | | | | | | [phone] | | | | | | | | +--------+ + + + + | 04/16/ | Procedure | Cardiology | | | | 2019 | visit | | | | +--------+ + + + + | 04/25/ | Office | Cardiology | Rocio Pearl, | | | 2019 | Visit | | MD Cheryl URENA | | | | | | [address] [place] | | | | | | [phone] | | | | | | | | +--------+ + + + + documented as of this encounter Procedures + +--------+ + + + | Procedure Name | Priori | Date/Time | Associated Diagnosis | Comments | | | ty | | | | + +--------+ + + + | ECG 12 LEAD | Routin | 03/24/2019 | Benign essential | Results for this | | | e | 1:48 PM | hypertension | procedure are in the | | | | PDT | | results section. | + +--------+ + + + | ECG 12 LEAD | Routin | 03/24/2019 | Coronary artery | Results for this | | | e | 1:35 PM | disease involving | procedure are in the | | | | PDT | ak chin coronary | results section. | | | | | artery of ak chin | | | | | | heart without angina | | | | | | pectoris Ischemic | | | | | | cardiomyopathy | | | | | | Benign essential | | | | | | hypertension | | + +--------+ + + + documented in this encounter Results ECG 12 lead (03/24/2019 1:48 PM PDT) + + + + + + | Component | Value | Ref Range | Performed | Pathologist | | | | | At | Signature | + + + + + + | VENTRICULAR | 72 | BPM | [facility] | | | RATE EKG | | | | | + + + + + + | ATRIAL RATE | 72 | BPM | [facility] | | + + + + + + | P-R | 176 | ms | [facility] | | | INTERVAL | | | | | + + + + + + | QRS | 188 | ms | [facility] | | | DURATION | | | | | + + + + + + | Q-T | 494 | ms | [facility] | | | INTERVAL | | | | | + + + + + + | Q-T | 540 | ms | [facility] | | | INTERVAL | | | | | | (CORRECTED) | | | | | + + + + + + | P WAVE AXIS | 63 | degrees | [facility] | | + + + + + + | QRS AXIS | -156 | degrees | [facility] | | + + + + + + | T AXIS | 53 | degrees | [facility] | | + + + + + + | INTERPRETAT | Atrial-sensed | | [facility] | | | ION TEXT | ventricular-paced | | | | | | rhythmAbnormal ECGWhen | | | | | | compared with ECG of | | | | | | 24-MAR-2019 13:35, | | | | | | (Unconfirmed)Electronic | | | | | | ventricular pacemaker | | | | | | has replaced Sinus | | | | | | rhythmConfirmed by | | | | | | LAUREN FIGUEROA MD | | | | | | ([id number]) on 03/24/2019 | | | | | | 2:16:45 PM | | | | + + + + + + + + | Specimen | + + | | + + + + + | Narrative | Performed At | + + + | | | + + + + +---------+ + + | Performing | Address | City/State/Zipcode | Phone Number | | Organization | | | | + +---------+ + + | [facility] | | | | + +---------+ + + ECG 12 lead (03/24/2019 1:35 PM PDT) + + + + + + | Component | Value | Ref Range | Performed | Pathologist | | | | | At | Signature | + + + + + + | VENTRICULAR | 63 | BPM | [facility] | | | RATE EKG | | | | | + + + + + + | ATRIAL RATE | 63 | BPM | [facility] | | + + + + + + | P-R | 148 | ms | [facility] | | | INTERVAL | | | | | + + + + + + | QRS | 94 | ms | [facility] | | | DURATION | | | | | + + + + + + | Q-T | 486 | ms | [facility] | | | INTERVAL | | | | | + + + + + + | Q-T | 497 | ms | [facility] | | | INTERVAL | | | | | | (CORRECTED) | | | | | + + + + + + | P WAVE AXIS | -17 | degrees | [facility] | | + + + + + + | QRS AXIS | 59 | degrees | [facility] | | + + + + + + | T AXIS | 71 | degrees | [facility] | | + + + + + + | INTERPRETAT | Normal sinus | | [facility] | | | ION TEXT | rhythmSeptal infarct , | | | | | | age undeterminedAbnormal | | | | | | ECGWhen compared with | | | | | | ECG of 26-AUG-2018 | | | | | | 11:35,Sinus rhythm has | | | | | | replaced Electronic | | | | | | ventricular | | | | | | pacemakerConfirmed by | | | | | | LAUREN FIGUEROA MD | | | | | | ([id number]) on 03/24/2019 | | | | | | 2:16:42 PM | | | | + + + + + + + + | Specimen | + + | | + + + + + | Narrative | Performed At | + + + | | | + + + + +---------+ + + | Performing | Address | City/State/Zipcode | Phone Number | | Organization | | | | + +---------+ + + | [facility] | | | | + +---------+ + + documented in this encounter Visit Diagnoses + + | Diagnosis | + + | Paroxysmal atrial flutter (HCC) - Primary Atrial flutter | + + | PAD (peripheral artery disease) (HCC) Unspecified disorders of arteries and | | arterioles | + + | Acute anterior wall AK (HCC) Acute myocardial infarction of other anterior wall, | | episode of care unspecified | + + | Coronary artery disease involving ak chin coronary artery of ak chin heart without | | angina pectoris | + + | Ischemic cardiomyopathy Other specified forms of chronic ischemic heart disease | + + | Abdominal aortic aneurysm (AAA) without rupture (HCC) | + + | Benign essential hypertension Essential hypertension, benign | + + | Acute on chronic systolic congestive heart failure (HCC) Acute on chronic systolic | | heart failure | + + | Atherosclerosis of ak chin coronary artery of ak chin heart with stable angina pectoris | | (HCC) | + + | 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
--- OUTSIDE RECORDS SUMMARY | ~2020-03-04 | XMS | Encounter Summary ---
Demographics + + + | Address | [address] | | | [place] [address] | + + + | Home Phone | | + + + | Preferred Language | Unknown | + + + | Marital Status | | + + + | Bahai Affiliation | Unknown | + + + | Race | Unknown | + + + | Ethnic Group | Unknown | + + + Author + + + | Author | [facility] | | | and [place] | + + + | Organization | [facility] | | | and [place] | + + + | Address | Unknown | + + + | Phone | Unavailable | + + + Support + + + + + | Name | Relationship | Address | Phone | + + + + + | [place] Will | ECON | [place] | | | | | [address] | | + + + + + Care Team Providers + +------+ + | Care Blue Prints Trimmer Name | Role | Phone | + +------+ + PCP | Unavailable | + +------+ + Reason for Referral Evaluate & Treat (Routine) +--------+ + + + + + | Status | Reason | Specialty | Diagnoses / | Referred By | Referred To | | | | | Procedures | Contact | Contact | +--------+ + + + + + | Closed | Specialty | Sleep | Diagnoses | Ned[place], | [facility] | | | Services | Medicine | [place] | MD Sofie | Center [address] | | | Required | | (obstructive | [address] | [place] | | | | | sleep | [address] [place] | Javier Herrera, | | | | | apnea) | [place] | [place] [address] | | | | | Procedures | [address] | Phone: | | | | | [place] POLYSOM | Phone: | [phone] | | | | | 6/>YRS SLEEP | [phone] | Fax: | | | | | W/CPAP 4/> | Fax: | [phone] | | | | | ADDL KATERINA | [phone] | | | | | | ATT[place] | | | | | | | POLYSOM | | | | | | | 6/>YRS SLEEP | | | | | | | 4/> ADDL | | | | | | | KATERINA ATTND | | | | | | | PAP | | | | | | | (06/29/18@8p | | | | | | | m) CX LIST | | | +--------+ + + + + + Reason for Visit + + + | Reason | Comments | + + + | CPAP Follow Up | | + + + Encounter Details +--------+---------+ + + + | Date | Type | Department | Care Team | Description | +--------+---------+ + + + | 04/14/ | Office | [facility] | Sofie Sneed MD | [place]OUISA (obstructive | | 2018 | Visit | SLEEP DISORDER [address] | [address] | sleep apnea) | | | | [address] [place] | [place] | (Primary Dx) | | | | [place] [address] | [address] | | | | | [phone] | | | +--------+---------+ + + + Social History + + + +--------+------+ | Tobacco Use | Types | Packs/Day | Years | Date | | | | | Used | | + + + +--------+------+ | Former Smoker | Cigarettes | | 45 | | + + + +--------+------+ + +---+---+ + | Smokeless Tobacco: | | | Quit: | | Former User | | | 03/15/20 | | | | | 17 | + +---+---+ + + + +---------+ + | Alcohol [...] + + + | Blood Pressure | 110/70 | 04/14/2018 8:10 AM | | | | | PDT | | + + + + + | Pulse | 81 | 04/14/2018 8:10 AM | | | | | PDT | | + + + + + | Temperature | - | - | | + + + + + | Respiratory Rate | 16 | 04/14/2018 8:10 AM | | | | | PDT | | + + + + + | Oxygen Saturation | 97% | 04/14/2018 8:10 AM | | | | | PDT | | + + + + + | Inhaled Oxygen | - | - | | | Concentration | | | | + + + + + | Weight | 100.6 kg (221 lb | 04/14/2018 8:10 AM | | | | 12.5 oz) | PDT | | + + + + + | Height | - | - | | + + + + + | Body Mass Index | 31.82 | 04/09/2018 8:06 AM | | | | | PDT | | + + + + + documented in this encounter Progress Notes Sofie Sneed MD - 04/14/2018 8:15 AM PDT The patient comes in to discuss sleep study results. My interpretation of the patient's s leep study, which I have reviewed with the patient, is as follows: Polysomnogram Report on Bob Will performed on March 03 2800 PATIENT IDENTIFICATION: Bob Will IS a 62 y.o..-year-old male. with a history of coronary artery disease post recent anterior wall CO, post PTCA and stents on 03/15/17, cardiac shock, recent status post stents, cardiomyopathy, atrial flutter, GERD, chronic knee pain, And neuropathy?, presenting for evaluation of sleep apnea. BMI: 31.5 Technical Information: Please see technical data which is attached. Definitions (The AASM Manual for the Scoring of Sleep and Associated Events, Version 2.4; 2 017): Apnea: There is a drop in the peak signal excursion by 90% or greater of pre-pantera nt baseline using an oronasal thermal sensor (diagnostic study), PAP device flow (titration study), or an alternative apnea sensor (diagnostic study); the duration of the 90% or greate r drop in sensor signal is 10 seconds or longer. Obstructive Apnea: Event associated with continued or increased inspi ratory effort throughout the entire period of absent airflow. Central Apnea: Event associated with absent inspiratory effort throug hout the entire period of absent airflow. Mixed Apnea: Event associated with absent inspiratory effort in the i nitial portion of the event followed by resumption of inspiratory effort during the second p ortion of the event. Hypopnea: Nasal pressure excursion drop by 30% or more from baseline, lasting at lease 10 seconds and 90% of the event's duration meets this amplitude criteria. This is ass ociated with a 4% or greater desaturation from pre-baseline Respiratory Event Related Arousal: A sequence of breaths lasting 10 seconds or l onger characterized by increasing respiratory effort or by flattening of the inspiratory por tion of the nasal pressure (diagnostic study) or PAP device flow (titration study) waveform leading to arousal from sleep when the sequence of breaths does not meet criteria for an palliative care physician ea or hypopnea. REVELANT MEDICATIONS: Tramadol, hydrocodonehypopnea acetaminophen, gabapentin. SUBJECTIVE: The patient rated sleep quality during sleep study as better. Debeader note: patient tried medium dreamwear nasal mask and medium airfit p10 nasal pill ows and preferred nasal pillows. SLEEP ARCHITECTURE AND EEG: Total sleep time was 499 minutes. Sleep efficiency was 80.7% and was decreased. Sleep onset latency was 0.5 minutes and was decreased. REM latency was 187.5 minutes and was increased. Percent of time in stage N3 was 0%. Percent of time in stage REM was 0.9 % and was decreased. Arousal Index for this diagnostic study was 10.7/hour and waswithin normal limits, with 2.3 respiratory arousals/hour and 8.4 spontaneous arousals/hour. RESPIRATORY: Respiratory disturbance index (RDI) was 7.5, consisting of total 52 hypopneas, 4 obstruc tive apneas, 0 mixed apneas, and 6 central apneas and 0 RERAs. AHI was 7.5 and mildly elevat ed. Sleep disordered breathing was worsened in supine position with supine AHI of 13.4. Pa tient spent 41.3% of total sleep time in supine position. Nonsupine AHI was 3.3. Sleep disordered breathing was worsened in REM sleep with REM AHI of 40. Non-REM AHI wa s 7.2. Mean SpO2 was 89 %, marilee SpO2 was 77%, and amount of total sleep time spent below SpO2 of 89% was 187.7 minutes. 4% Oxygen Desaturation Index (HOMERO) was 13.5 and was mildly elevate d. Snoring was moderate. ETCO2 was not elevated. Fritz-Ulrich breathing was not observed. LIMB MOVEMENTS: Total sleep periodic limb movement index was 0 and was not increased. EKG: Normal sinus rhythm was noted with mean heart rate of 66, 62, 67 beats per minute in wake, non-REM, and REM sleep respectively.. INTERPRETATION: - This polysomnography showed sleep apnea which was obstructive in nature, and it was mild in frequency of events, and mild in frequency of desaturations. Sleep apnea was worsened in supine position and in stage R sleep. There was 41.3% Supine sleep, but only 0.9% stage R s leep was captured. Mean SpO2 was 89 %, marilee SpO2 was 77%, and amount of total sleep time sp ent below SpO2 of 89% was 187.7 minutes. There were several numbers of obstructive hypopnea is associated with a 3% oxygen saturation, and amount the required 4% oxygen desaturation. However, there were also periods of low SPO2 at 88-89% and absence of obvious obstructive e vents. - Sleep efficiency was mildly decreased, and sleep was minimally fragmented. - Excessive leg movements was not observed. RECOMMENDATIONS: 1. A separate PAP titration study. Otherwise, auto- CPAP at 5-15 cm H2O can be started fol lowed by an overnight oximetry on CPAP and room air, and to proceed with a separate titratio n study in case of residual hypoxemia. 2. Weight management. Today, I discussed the above results in detail with patient and his . . he is intereste d in titration study. His says he was previously diagnosed with COPD. I don't have hi s PFT to review. They think it was done long time ago.. Vitals: 04/14/18 0810 BP: 110/70 Pulse: 81 Resp: 16 PainSc: 0 - No pain Plan: Proceed with CPAP (and oxygen if needed) titration study. I spent 15 minutes face to face with the patient, with over 50% spent in counseling and/or coordination of care regarding sleep apnea. documented in this enco unter Plan of Treatment +--------+ + + + + | Date | Type | Specialty | Care Team | Description | +--------+ + + + + | 03/12/ | Office | Nephrology | Litzy, | | | 2019 | Visit | | [address] | | | | | | [facility] | | | | | | [address] | | | | | | [address] | | | | | | | | +--------+ + + + + | 04/16/ | Office | Cardiology | Alin Anderson | | | 2019 | Visit | | MD Cheryl Arreguin | | | | | | [address] | | | | | | [place] [address] | | | | | | [phone] | | | | | | | | +--------+ + + + + | 04/16/ | Procedure | Cardiology | | | | 2019 | visit | | | | +--------+ + + + + | 04/25/ | Office | Cardiology | Rocio Pearl | | | 2019 | Visit | | MD Cheryl URENA | | | | | | [place] | | | | | | [address] | | | | | | | | +--------+ + + + + + + +--------+ + + | Name | Type | Priori | Associated Diagnoses | Order Schedule | | | | ty | | | + + +--------+ + + | * [facility] - | Outpatient | Routin | LOUISA (obstructive | Ordered: 04/14/2018 | | AMB Referral | Referral | e | sleep apnea) | | + + +--------+ + + documented as of this encounter Visit Diagnoses + + | Diagnosis | + + | LOUISA (obstructive sleep apnea) - Primary Obstructive sleep apnea (adult) (pediatric) | + + documented in this encounter"
--- OUTSIDE RECORDS SUMMARY | ~2020-03-04 | XMS | Encounter Summary ---
Demographics + + + | Address | [address] | | | [place] [address] | + + + | Home Phone | | + + + | Preferred Language | Unknown | + + + | Marital Status | | + + + | Scientologist Affiliation | Unknown | + + + | Race | Unknown | + + + | Ethnic Group | Unknown | + + + Author + + + | Author | [facility] | | | and [place] | + + + | Organization | [facility] | | | and [place] | + + + | Address | Unknown | + + + | Phone | Unavailable | + + + Support + + + + + | Name | Relationship | Address | Phone | + + + + + | [place] Will | ECON | [place], [place] | | | | | [address] | | + + + + + Care Team Providers + +------+ + | Care Sales Route Driver Helper Name | Role | Phone | + +------+ + PCP | Unavailable | + +------+ + Encounter Details +--------+ + + + + | Date | Type | Department | Care Team | Description | +--------+ + + + + | 12/30/ | Abstract | [facility] | Tamia Burleson, | | | 2018 | | NEPHROLOGY [address] | MD [address] | | | | | [address] | [address] [place] | | | | | [place], [place] | [place] [address] | | | | | [address] | [phone] | | | | | [phone] | | | +--------+ + + + [...] | 03/12/ | Office | Nephrology | Fackenthall, | | | 2020 | Visit | | ADARSH [address] | | | | | | [address] [place] | | | | | | [address] [place] | | | | | | [address] | | | | | | | | +--------+ + + + + | 04/16/ | Office | Cardiology | Alin Anderson | | | 2019 | Visit | | MD Cheryl Arreguin | | | | | | [address] | | | | | | [place] [address] | | | | | | [phone] | | | | | | | | +--------+ + + + + | 04/16/ | Procedure | Cardiology | | | | 2019 | visit | | | | +--------+ + + + + | 04/25/ | Office | Cardiology | Rocio Pearl | | | 2019 | Visit | | [address] | | | | | | [place] | | | | | | [address] | | | | | | | | +--------+ + + + + documented as of this encounter Procedures + +--------+ + + + | Procedure Name | Priori | Date/Time | Associated Diagnosis | Comments | | | ty | | | | + +--------+ + + + | EXTERNAL LAB: DONTE | Routin | 12/20/2018 | | Results for this | | | e | | | procedure are in the | | | | | | results section. | + +--------+ + + + | EXTERNAL LAB: | Routin | 12/20/2018 | | Results for this | | GLUCOSE | e | | | procedure are in the | | | | | | results section. | + +--------+ + + + | EXTERNAL LAB: YESSI | Routin | 12/20/2018 | | Results for this | | | e | | | procedure are in the | | | | | | results section. | + +--------+ + + + | EXTERNAL LAB: AST | Routin | 12/20/2018 | | Results for this | | | e | | | procedure are in the | | | | | | results section. | + +--------+ + + + | EXTERNAL LAB: | Routin | 12/20/2018 | | Results for this | | ALKALINE PHOSPHATASE | e | | | procedure are in the | | | | | | results section. | + +--------+ + + + | EXTERNAL LAB: | Routin | 12/20/2018 | | Results for this | | BILIRUBIN, TOTAL | e | | | procedure are in the | | | | | | results section. | + +--------+ + + + | EXTERNAL LAB: | Routin | 12/20/2018 | | Results for this | | ALBUMIN | e | | | procedure are in the | | | | | | results section. | + +--------+ + + + | EXTERNAL LAB: | Routin | 12/20/2018 | | Results for this | | PROTEIN, TOTAL | e | | | procedure are in the | | | | | | results section. | + +--------+ + + + | EXTERNAL LAB: | Routin | 12/20/2018 | | Results for this | | CALCIUM | e | | | procedure are in the | | | | | | results section. | + +--------+ + + + | EXTERNAL LAB: CARBON | Routin | 12/20/2018 | | Results for this | | DIOXIDE | e | | | procedure are in the | | | | | | results section. | + +--------+ + + + | EXTERNAL LAB: | Routin | 12/20/2018 | | Results for this | | CHLORIDE | e | | | procedure are in the | | | | | | results section. | + +--------+ + + + | EXTERNAL LAB: | Routin | 12/20/2018 | | Results for this | | POTASSIUM | e | | | procedure are in the | | | | | | results section. | + +--------+ + + + | EXTERNAL LAB: SODIUM | Routin | 12/20/2018 | | Results for this | | | e | | | procedure are in the | | | | | | results section. | + +--------+ + + + | EXTERNAL LAB: IRON | Routin | 12/20/2018 | | Results for this | | TOTAL | e | | | procedure are in the | | | | | | results section. | + +--------+ + + + | EXTERNAL LAB: IRON | Routin | 12/20/2018 | | Results for this | | SATURATION | e | | | procedure are in the | | | | | | results section. | + +--------+ + + + | EXTERNAL LAB: IRON | Routin | 12/20/2018 | | Results for this | | BINDING CAPACITY | e | | | procedure are in the | | | | | | results section. | + +--------+ + + + | EXTERNAL LAB: | Routin | 12/20/2018 | | Results for this | | FERRITIN | e | | | procedure are in the | | | | | | results section. | + +--------+ + + + | EXTERNAL LAB: CBC | Routin | 12/20/2018 | | Results for this | | | e | | | procedure are in the | | | | | | results section. | + +--------+ + + + | EXTERNAL LAB: EGFR | Routin | 12/20/2018 | | Results for this | | | e | | | procedure are in the | | | | | | results section. | + +--------+ + + + | EXTERNAL LAB: | Routin | 12/20/2018 | | Results for this | | CREATININE | e | | | procedure are in the | | | | | | results section. | + +--------+ + + + documented in this encounter Results External Lab: DONTE (12/20/2018) + +-------+ + + + | Component | Value | Ref Range | Performed | Pathologist | | | | | At | Signature | + +-------+ + + + | BUN, | 33 | | | | | External | | | | | + +-------+ + + + External Lab: Glucose (12/20/2018) + +-------+ + + + | Component | Value | Ref Range | Performed | Pathologist | | | | | At | Signature | + +-------+ + + + | Glucose, | 146 | | | | | External | | | | | + +-------+ + + + External Lab: ALT (12/20/2018) + +-------+ + + + | Component | Value | Ref Range | Performed | Pathologist | | | | | At | Signature | + +-------+ + + + | ALT, | 41 | | | | | External | | | | | + +-------+ + + + External Lab: AST (12/20/2018) + +-------+ + + + | Component | Value | Ref Range | Performed | Pathologist | | | | | At | Signature | + +-------+ + + + | AST, | 20 | | | | | External | | | | | + +-------+ + + + External Lab: Alkaline Phosphatase (12/20/2018) + +-------+ + + + | Component | Value | Ref Range | Performed | Pathologist | | | | | At | Signature | + +-------+ + + + | ALP, | 70 | | | | | External | | | | | + +-------+ + + + External Lab: Bilirubin, Total (12/20/2018) + +-------+ + + + | Component | Value | Ref Range | Performed | Pathologist | | | | | At | Signature | + +-------+ + + + | Bilirubin, | 0.5 | | | | | Total, | | | | | | External | | | | | + +-------+ + + + External Lab: Albumin (12/20/2018) + +-------+ + + + | Component | Value | Ref Range | Performed | Pathologist | | | | | At | Signature | + +-------+ + + + | Albumin, | 3.8 | | | | | External | | | | | + +-------+ + + + External Lab: Protein, Total (12/20/2018) + +-------+ + + + | Component | Value | Ref Range | Performed | Pathologist | | | | | At | Signature | + +-------+ + + + | Protein, | 6.5 | | | | | Total, | | | | | | External | | | | | + +-------+ + + + External Lab: Calcium (12/20/2018) + +-------+ + + + | Component | Value | Ref Range | Performed | Pathologist | | | | | At | Signature | + +-------+ + + + | Calcium, | 8.4 | | | | | External | | | | | + +-------+ + + + External Lab: Carbon Dioxide (12/20/2018) + +-------+ + + + | Component | Value | Ref Range | Performed | Pathologist | | | | | At | Signature | + +-------+ + + + | Carbon | 28 | | | | | Dioxide, | | | | | | External | | | | | + +-------+ + + + External Lab: Chloride (12/20/2018) + +-------+ + + + | Component | Value | Ref Range | Performed | Pathologist | | | | | At | Signature | + +-------+ + + + | Chloride, | 106 | | | | | External | | | | | + +-------+ + + + External Lab: Potassium (12/20/2018) + +-------+ + + + | Component | Value | Ref Range | Performed | Pathologist | | | | | At | Signature | + +-------+ + + + | Potassium, | 4.1 | | | | | External | | | | | + +-------+ + + + External Lab: Sodium (12/20/2018) + +-------+ + + + | Component | Value | Ref Range | Performed | Pathologist | | | | | At | Signature | + +-------+ + + + | Sodium, | 144 | | | | | External | | | | | + +-------+ + + + External Lab: Iron Total (12/20/2018) + +-------+ + + + | Component | Value | Ref Range | Performed | Pathologist | | | | | At | Signature | + +-------+ + + + | Iron, | 47.73 | | | | | External | | | | | + +-------+ + + + External Lab: Iron Saturation (12/20/2018) + +-------+ + + + | Component | Value | Ref Range | Performed | Pathologist | | | | | At | Signature | + +-------+ + + + | Iron | 10 | | | | | Saturation, | | | | | | External | | | | | + +-------+ + + + External Lab: Iron Binding Capacity (12/20/2018) + +-------+ + + + | Component | Value | Ref Range | Performed | Pathologist | | | | | At | Signature | + +-------+ + + + | Iron | 478 | | | | | Binding | | | | | | Capacity, | | | | | | External | | | | | + +-------+ + + + External Lab: Ferritin (12/20/2018) + +-------+ + + + | Component | Value | Ref Range | Performed | Pathologist | | | | | At | Signature | + +-------+ + + + | Ferritin, | 61.29 | | | | | External | | | | | + +-------+ + + + External Lab: CBC (12/20/2018) + +-------+ + + + | Component | Value | Ref Range | Performed | Pathologist | | | | | At | Signature | + +-------+ + + + | WBC, | 7.7 | | | | | External | | | | | + +-------+ + + + | HGB, | 11.8 | | | | | External | | | | | + +-------+ + + + | HCT, | 37.3 | | | | | External | | | | | + +-------+ + + + | PLT, | 182 | | | | | External | | | | | + +-------+ + + + | RBC, | 4.02 | | | | | External | | | | | + +-------+ + + + | MCV, | 93 | | | | | External | | | | | + +-------+ + + + | RDW, | 15.5 | | | | | External | | | | | + +-------+ + + + External Lab: eGFR (12/20/2018) + +-------+ + + + | Component | Value | Ref Range | Performed | Pathologist | | | | | At | Signature | + +-------+ + + + | eGFR, | 33 | | | | | External | | | | | + +-------+ + + + + + | Specimen | + + | Blood | + + External Lab: Creatinine (12/20/2018) + +-------+ + + + | Component | Value | Ref Range | Performed | Pathologist | | | | | At | Signature | + +-------+ + + + | Creatinine, | 2.06 | | | | | External | | | | | + +-------+ + + + + + | Specimen | + + | Blood | + + documented in this encounter Visit Diagnoses Not on filedocumented in this encounter"
--- OUTSIDE RECORDS SUMMARY | ~2020-03-04 | XMS | Encounter Summary ---
Demographics + + + | Address | [address] | | | [place] [address] | + + + | Home Phone | | + + + | Preferred Language | Unknown | + + + | Marital Status | | + + + | Mormonism Affiliation | Unknown | + + + | Race | Unknown | + + + | Ethnic Group | Unknown | + + + Author + + + | Author | [facility] | | | and [place] | + + + | Organization | [facility] | | | and [place] | + + + | Address | Unknown | + + + | Phone | Unavailable | + + + Support + + + + + | Name | Relationship | Address | Phone | + + + + + | Venice Will | ECON | [place], [place] | | | | | [address] | | + + + + + Care Team Providers + +------+ + | Care Addiction Counselor Name | Role | Phone | + +------+ + PCP | Unavailable | + +------+ + Reason for Visit + +--------+ + | Reason | Onset | Comments | | | Date | | + +--------+ + | Blood Pressure | 10/07/ | | | | 2019 | | + +--------+ + Encounter Details +--------+ + + + + | Date | Type | Department | Care Team | Description | +--------+ + + + + | 10/07/ | Telephone | [facility] | Jenny, | Blood Pressure | | 2018 | | CARDIOLOGY [address] | Hansa PLANT ASSOCIATE [address] | | | | | [place], | [place], | | | | | [place] [address] | [place] [address] | | | | | [phone] | [phone] | | | | | | | [...] + + documented as of this encounter Miscellaneous Notes Telephone Encounter - Hansa Alvarado ARNP - 10/15/2018 5:22 PM PSTWe will await for l og Electronically signed by: ADARSH Stevens 10/15/2018 17:22 elephone Encoun Lilian Bennett RN - 10/14/2018 3:27 PM PSTBob reports that he is on Metoprolol 50m g twice daily. He states that [facility] increased him to 100mg twice daily previously and eliza t lowered his blood pressure too low. His reports that at that same time he had messed up on his entresto. She reports (per Melba BREWER) on Thursday evening he will start an incre ase to 75mg in evening and 50mg in am. Then one week later he will go to 75mg twice daily. She states that they will do a two week blood pressure log with the increase starting on and then send that in. They will keep it at the 75mg twice daily until they hear back f rom us on that next bp log. ...........................................Lilian Machado RN o n 10/14/18 at 15:31 elephone Encounter - Suzanne Cheng RN - 10/13/2018 3:03 PM PSTLeft message on voicemail to return call ..........................................Suzanne Cheng RN on 10/13/18 at 15:03 elephone Encount er - Hansa Alvarado ARNP - 10/13/2018 1:02 PM PSTBlood pressure looks good. Advanced h eart failure from [place] wanted him to continue increasing Metoprolol dose. How much metop rolol is he at? Electronically signed by: ADARSH Stevens 10/13/2018 13:07 eleevie Preciado, Franny Cheema CMA - 10/07/2018 2:27 PM PSTFormatting of this note might be d ifferent from the original. Next Visit:12/22/18 Blood pressure log received from patient as follows:09/22/18---10/05/18 Medication Change: Date BP AM Pulse AM BP PM Pulse PM 09/22/18 108/66 75 102/61 57 09/23/18 108/68 72 101/59 53 09/24/18 110/70 75 101/59 58 09/25/18 108/75 75 114/63 58 09/26/18 109/63 58 110/63 75 09/27/18 109/64 60 112/63 77 09/28/18 112/63 67 112/63 75 09/29/18 108/68 67 110/65 75 09/30/18 115/68 70 61194 78 10/01/18 112/67 75 112/65 76 10/02/18 110/68 78 115/68 75 10/03/18 108/65 75 112/68 76 10/04/18 115/65 75 110/68 75 10/05/18 115/65 78 112/68 78 Additional Comments: documented in this encounter Plan of Treatment +--------+ + + + + | Date | Type | Specialty | Care Team | Description | +--------+ + + + + | 03/12/ | Office | Nephrology | Delmyl, | | | 2019 | Visit | | ADARSH [address] | | | | | | [address] | | | | | | [address] [place] | | | | | | [address] | | | | | | | | +--------+ + + + + | 04/16/ | Office | Cardiology | Alin Anderson | | | 2019 | Visit | | MD Cheryl Arreguin | | | | | | [address] | | | | | | [place] [address] | | | | | | [phone] | | | | | | | [...] [place] | | | | | | [address] | | | | | | | | +--------+ + + + + documented as of this encounter Visit Diagnoses Not on filedocumented in this encounter"
--- OUTSIDE RECORDS SUMMARY | ~2020-03-04 | XMS | Encounter Summary ---
Demographics + + + | Address | [address] | | | [place] [address] | + + + | Home Phone | | + + + | Preferred Language | Unknown | + + + | Marital Status | | + + + | Cheondoism Affiliation | Unknown | + + + | Race | Unknown | + + + | Ethnic Group | Unknown | + + + Author + + + | Author | [facility] | | | and [place] | + + + | Organization | [facility] | | | and [place] | + + + | Address | Unknown | + + + | Phone | Unavailable | + + + Support + + + + + | Name | Relationship | Address | Phone | + + + + + | Venice Will | ECON | [place], [place] | | | | | [address] | | + + + + + Care Team Providers + +------+ + | Care Construction Consultant Name | Role | Phone | + +------+ + PCP | Unavailable | + +------+ + Reason for Visit +--------+--------+ + | Reason | Onset | Comments | | | Date | | +--------+--------+ + | Other | 05/27/ | issues with breathing | | | 2017 | | +--------+--------+ + Encounter Details +--------+ + + + + | Date | Type | Department | Care Team | Description | +--------+ + + + + | 05/27/ | Telephone | [facility] | Jenny, | Other (issues with | | 2017 | | CARDIOLOGY [address] | ADARSH [address] | breathing) | | | | [place], | [place], | | | | | [place] [address] | [place] [address] | | | | | [phone] | [phone] | | | | | | | [...] this encounter Miscellaneous Notes Telephone Encounter - Lilian Machado RN - 05/27/2018 2:42 PM Joaquim is notified . ..........................................Lilian Machado RN on 05/27/18 at 14:43 elephone Encounter - Hansa Alvarado ARNP - 05/27/2018 2:40 PM PDTHave him take 20 mg furosemide today an d tomorrow if needed. Maximum of 2 days Electronically signed by: ADARSH Stevens 05/27/2018 14:41 elephone Encoun Lilian Bennett RN - 05/27/2018 10:14 AM Joaquim called, she states that Ashok wa s in to see Hansa yesterday. She states that he was ok yesterday as far as his breathing b ut today he is feeling very short of breath. She states that in the past when he has these issues he has too much water. His weight is not up that he knows of. He does not have any swelling. She states that they do have furosemide 20mg on hand. I will consult Hansa and then let them know. ...........................................Lilian Machado RN on 05/09 at 10:20 documented in this encounter Plan of Treatment [...] | | | | | | [address] [place] | | | | | | [address] | | | | | | | | +--------+ + + + + | 04/16/ | Office | Cardiology | Alin Anderson | | | 2019 | Visit | | MD [address] | | | | | | [address] | | | | | | [place] [address] | | | | | | [phone] | | | | | | | | +--------+ + + + + | 04/16/ | Procedure | Cardiology | | | | 2019 | visit | | | | +--------+ + + + + | 04/25/ | Office | Cardiology | Rocio Pearl, | | | 2020 | Visit | | MD Cheryl [address] | | | | | | [place] | | | | | | [address] | | | | | | | | +--------+ + + + + documented as of this encounter Visit Diagnoses Not on filedocumented in this encounter"
--- OUTSIDE RECORDS SUMMARY | ~2020-03-04 | XMS | Encounter Summary ---
Demographics + + + | Address | [address] | | | [place] [address] | + + + | Home Phone | | + + + | Preferred Language | Unknown | + + + | Marital Status | | + + + | Muslim Affiliation | Unknown | + + + | Race | Unknown | + + + | Ethnic Group | Unknown | + + + Author + + + | Author | [facility] | | | and [place] | + + + | Organization | [facility] | | | and [place] | + + + | Address | Unknown | + + + | Phone | Unavailable | + + + Support + + + + + | Name | Relationship | Address | Phone | + + + + + | Venice Will | ECON | [place], [place] | | | | | [address] | | + + + + + Care Team Providers + +------+ + | Care City Dispatcher Name | Role | Phone | + +------+ + PCP | Unavailable | + +------+ + Encounter Details +--------+ + + + + | Date | Type | Department | Care Team | Description | +--------+ + + + + | 03/24/ | Hospital | [facility] | Gera Biggs, | | | 2010 | Encounter | MED CTR EMERGENCY | MD [address] | | | | | [place] [address] | [place] | | | | | [place] | [address] | | | | | [address] | | | | | | [phone] | | | +--------+ + + + + Social History + +-------+ +--------+------+ | Tobacco Use | Types | Packs/Day | Years | Date | | | | | Used | | + +-------+ +--------+------+ | Never Assessed | | | | | + +-------+ +--------+------+ + + + | Sex Assigned at | Date Recorded | | | | + + + | Not on file | | + + + documented as of this encounter ED Notes Gera Biggs MD - 03/24/2011 5:01 PM PDTDATE: 03/24/2011 HISTORY OF PRESENT ILLNESS: This is a 55-year-old male, chief complaint of chronic cervica l spine pa in radiating into his right arm. He says he has had it for many years. He actual ly saw Dr. 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 He says he has been wo rse over the last 2 to 3 days because he h as not had a refill of his tramadol prescription for the last 1 to 2 weeks. He is waiting for the [facility] ill [facility], and he says his pain is now intolerable. No new type of pain, same pain he has had in the past, 10 now today. No numbness or weakness in his extremities. No bowel or bladd er incontinence. He does have some radicular pain, right side greater than left, in the upp er extremities. He is otherwise healthy. ALLERGIES: NO KNOWN ALLERGIES. SOCIAL HISTORY: Nonsmoker. HOME MEDICATIONS 1. Neurontin. 2. Vitamin D. 3. Tramadol. 4. Hydrochlorothiazide. 5. Aspirin. 6. Simvastatin. 7. Omeprazole. 8. Lopressor. REVIEW OF SYSTEMS: A complete review of systems is negative, except as detailed in the HPI above. PHYSICAL EXAMINATION VITAL SIGNS: Blood pressure 159/89, heart rate 84, respirations 12, afebrile, 95% on room air. GENERAL: No acute distress. HEENT: Pupils equal and reactive to light and accommodation. Extraocular movements intact. Oral muco sa moist. NECK: Supple. He does have tenderness, negative Lhermitte sign. His tenderness is posterio rly diffus e. NEUROLOGIC: Cranial nerves 2-12 are intact. He has normal sensation, motor, and strength i n all 4 ex tremities. No saddle anesthesia. No tenderness over his back. CARDIAC: Normal S1, S2. LUNGS: Clear to auscultation bilaterally. ABDOMEN: Soft, nontender, nondistended. Normal bowel sounds. Alert and oriented x3. SKIN: No rashes or lesions. ASSESSMENT AND PLAN: This is a 55-year-old male, DIAGNOSIS CHRONIC CERVICAL PAIN. He was given 2 hydrocodone in the emergency department and will be discharged home with a p rescriptio n for tramadol. He should follow up with his primary care and return if any new concerning symptoms. DICTATED BY: Gera Biggs M.D. Emergency Medicine JOB #: [id number] EXT JOB #:[id number] <Electronicall y Signed by Gera Biggs MD> 03/25/11 1548 documented in this encounter Plan of Treatment [...] [place] | | | | | | [address] | | | | | | | | +--------+ + + + + | 04/16/ | Office | Cardiology | Alin Anderson | | | 2019 | Visit | | MD [address] | | | | | | [address] | | | | | | [place] [address] | | | | | | [phone] | | | | | | | [...] [place] | | | | | | [address] | | | | | | | | +--------+ + + + + documented as of this encounter Visit Diagnoses Not on filedocumented in this encounter"
--- OUTSIDE RECORDS SUMMARY | ~2020-03-04 | XMS | Encounter Summary ---
Demographics + + + | Address | [address] | | | [place] [address] | + + + | Home Phone | | + + + | Preferred Language | Unknown | + + + | Marital Status | | + + + | Gnosticist Affiliation | Unknown | + + + | Race | Unknown | + + + | Ethnic Group | Unknown | + + + Author + + + | Author | [facility] | | | and [place] | + + + | Organization | [facility] | | | and [place] | + + + | Address | Unknown | + + + | Phone | Unavailable | + + + Support + + + + + | Name | Relationship | Address | Phone | + + + + + | Venice Will | ECON | [place], [place] | | | | | [address] | | + + + + + Care Team Providers + +------+ + | Care Senior Contracts Administrator Name | Role | Phone | + +------+ + PCP | Unavailable | + +------+ + Reason for Visit + + + | Reason | Comments | + + + | Device Check | | | (Remote) | | + + + Encounter Details +--------+ + + + + | Date | Type | Department | Care Team | Description | +--------+ + + + + | 01/19/ | Implant | [facility] [place] | Randy Figueroa, | Implantable | | 2018 | Monitor | CARDIOLOGY [address] | [address] | defibrillator | | | | [place], | [place], | reprogramming/check | | | | [place] [address] | [place] [address] | (Primary Dx); BANDER OPERATOR-D | | | | [phone] | [phone] | (AICD) Medtronic | | | | | | 10/16/17 EULOGIO Darby; | | | | | | Ischemic | | | | | | cardiomyopathy | +--------+ + + + + Social History + +-------+ +--------+------+ | Tobacco Use | Types | Packs/Day | Years | Date | | | | | Used | | + +-------+ +--------+------+ | Never Smoker | | | | | + +-------+ +--------+------+ + +---+---+---+ | Smokeless Tobacco: | | | | | Never Used | | | | + +---+---+---+ + [...] + + documented as of this encounter Procedure Notes Randy Figueroa MD - 01/19/2018 11:59 PM PDTAssociated Order(s): DEVICE INTERROGATION- R EMOTEProcedure(s): DEVICE INTERROGATION- REMOTEPre-Procedure Diagnose(s): Implantable defibr illator reprogramming/check; Biventricular ICD (implantable cardioverter-defibrillator) in p lace; Ischemic cardiomyopathyRefer to [facility] documentation and remote PDF scanned into EPIC for remote interrogation results. Data collected by RONNY CHAPMAN RN Presenting rhythm: atrial sensed ventricular paced with rate at 68-69 beats. 0 mode switch episodes accounting for 0% of the time. 0 atrial high rate episodes. 0 ventricular high rate episodes. 0.9 PVC singles/hour 3.8 PVC runs/hour Histogram good Battery longevity 9.5 years. Apparent normal and stable device function. Device interrogation due in office in 03/18/18 documented in this encounter Plan of Treatment +--------+ + + + + | Date | Type | Specialty | Care Team | Description | +--------+ + + + + | 03/12/ | Office | Nephrology | Litzy, | | | 2019 | Visit | | ADARSH [address] | | | | | | [address] | | | | | | [address] [place] | | | | | | [phone] | | | | | | | | +--------+ + + + + | 04/16/ | Office | Cardiology | Alin Anderson | | 2019 | Visit | | MD [address] | | | | | | [address] | | | | | | [place] [address] | | | | | | [phone] | | | | | | | | +--------+ + + + + | 04/16/ | Procedure | Cardiology | | | | 2019 | visit | | | | +--------+ + + + + | 04/25/ | Office | Cardiology | Rocio Pearl, | | | 2019 | Visit | | MD Cheryl [address] | | | | | | [place] | | | | | | [address] | | | | | | | | +--------+ + + + + documented as of this encounter Procedures + +--------+ + + + | Procedure Name | Priori | Date/Time | Associated Diagnosis | Comments | | | ty | | | | + +--------+ + + + | DEVICE | Routin | 01/19/2018 | Implantable | Results for this | | INTERROGATION- | e | 11:59 PM | defibrillator | procedure are in the | | REMOTE | | PDT | reprogramming/check | results section. | | | | | BANDER OPERATOR-D (AICD) | | | | | | Medtronic 10/16/17 | | | | | | EULOIGO Darby | | | | | | Ischemic | | | | | | cardiomyopathy | | + +--------+ + + + documented in this encounter Results Device Interrogation - Remote (01/19/2018 11:59 PM PDT) + + + | Narrative | Performed At | + + + | Randy | [facility] | | MD [place] 05/06/2018 11:27Refer to [facility] documentation and | | | remote PDF scanned into Freebe[employer] for remote interrogation results. Data | | | collected by RONNY CHAPMAN RN Presenting rhythm: atrial sensed | | | ventricular paced with rate at 68-69 beats. 0 mode switch episodes | | | accounting for 0% of the time.0 atrial high rate episodes. 0 | | | ventricular high rate episodes. 0.9 PVC singles/hour | | | 3.8 PVC runs/hour Histogram good Battery | | | longevity 9.5 years.Apparent normal and stable device | | | function.Device interrogation due in office in 03/18/18 | | |0.9 PVC singles/hour | | |3.8 PVC runs/hour | | |Histogram good Battery longevity 9.5 years. | | |Apparent normal and stable device function. | | |Device interrogation due in office in 03/18/18 | | | | | | | | + + + + +---------+ + + | Performing | Address | City/State/Zipcode | Phone Number | | Organization | | | | + +---------+ + + | [facility] | | | | + +---------+ + + documented in this encounter Visit Diagnoses + + | Diagnosis | + + | Implantable defibrillator reprogramming/check - Primary Fitting and adjustment of | | automatic implantable cardiac defibrillator | + + | BANDER OPERATOR-D (AICD) Medtronic 10/16/17 EULOGIO Darby | + + | Ischemic cardiomyopathy Other specified forms of chronic ischemic heart disease | + + documented in this encounter"
--- OUTSIDE RECORDS SUMMARY | ~2020-03-04 | XMS | Encounter Summary ---
Demographics + + + | Address | [address] | | | [place] [address] | + + + | Home Phone | | + + + | Preferred Language | Unknown | + + + | Marital Status | | + + + | Scientologist Affiliation | Unknown | + + + | Race | Unknown | + + + | Ethnic Group | Unknown | + + + Author + + + | Author | [facility] | | | and [place] | + + + | Organization | [facility] | | | and [place] | + + + | Address | Unknown | + + + | Phone | Unavailable | + + + Support + + + + + | Name | Relationship | Address | Phone | + + + + + | [place] Will | ECON | [place] | | | | | [address] | | + + + + + Care Team Providers + +------+ + | Care Hand Sewer Shoes Name | Role | Phone | + +------+ + | Amy Olivares MD | PCP | | + +------+ + Reason for Visit + + + | Reason | Comments | + + + | Medication Refill | | + + + Encounter Details +--------+--------+ + + + | Date | Type | Department | Care Team | Description | +--------+--------+ + + + | 12/08/ | Refill | [facility] [place] | Jenny, | Medication Refill | | 2020 | | CARDIOLOGY [address] | ADARSH [address] | | | | | [place], | [place], | | | | | [place] [address] | [place] [address] | | | | | [phone] | [phone] | | | | | | | | +--------+--------+ + + + Social History + + [...] [place] | | | | | | [address] | | | | | | | | +--------+ + + + + | 04/16/ | Office | Cardiology | Alin Anderson | | | 2019 | Visit | | MD [address] | | | | | | [address] | | | | | | [place] [address] | | | | | | [phone] | | | | | | | [...] [place] | | | | | | [address] | | | | | | | | +--------+ + + + + documented as of this encounter Visit Diagnoses Not on filedocumented in this encounter"
--- OUTSIDE RECORDS SUMMARY | ~2020-03-04 | XMS | Encounter Summary ---
Demographics + + + | Address | [address] | | | [place] [address] | + + + | Home Phone | | + + + | Preferred Language | Unknown | + + + | Marital Status | | + + + | Sabianism Affiliation | Unknown | + + + | Race | Unknown | + + + | Ethnic Group | Unknown | + + + Author + + + | Author | [facility] | | | and [place] | + + + | Organization | [facility] | | | and [place] | + + + | Address | Unknown | + + + | Phone | Unavailable | + + + Support + + + + + | Name | Relationship | Address | Phone | + + + + + | Venice Will | ECON | [place], [place] | | | | | [address] | | + + + + + Care Team Providers + +------+ + | Care Chemical Engineering Professor Name | Role | Phone | + +------+ + PCP | Unavailable | + +------+ + Reason for Visit + + + | Reason | Comments | + + + | Cardiac Rehab | | + + + Encounter Details +--------+---------+ + + + | Date | Type | Department | Care Team | Description | +--------+---------+ + + + | 11/26/ | Office | [facility] | RahulyazshirazRandy, | Coronary artery | | 2018 | Visit | MED CTR CARDIAC | MD [address] | disease involving | | | | REH[address]ILITATION [address] | [place], | [place] coronary | | | | [address] [place] | [place] [address] | artery of [place] | | | | [place] [address] | [phone] | heart without angina | | | | [phone] | | pectoris (Primary | | | | | | Dx) | +--------+---------+ + + + Social History + +-------+ [...] + documented as of this encounter Progress Cheri Mchugh, BARRON - 11/26/2017 9:00 AM PDT [facility] C[facility]AC [facility]ATION [address] [place] [address] Cardiac Rehab Date: 11/26/2017 Patient Information Patient Name: oBb Will Date of : 1955 Age: 62 y.o. Encounter Diagnoses Code Name Primary? I25.10 Coronary artery disease involving [place] coronary artery of [place] heart without angina pectoris Yes Number of Visits Approved: 36 Taken Medications Today? Yes Any Changes in Medications? No Any Problems to Report? No Pain Level? 0/10 Denies any adverse symptoms during exercise. Sinus rhythm without ectopy. SBP with appropriate rise during exertion. Compliant with medications and therapeutic lifestyle changes. Continue monitored exercise. Patient claimed that after the evaluation on 11/11, that didn't include a workout, that he en ded up in the hospital in [place], [place]. Spent multiple days there. Any abnormal vital signs or rhythm strips will be reported in progress note. Electronically signed by: Cheri Harvey RRT, 11/26/2017 12:22 Patient Name: Bob Will/: 1955/ document ed in this encounter Plan of Treatment +--------+ + + + + | Date | Type | Specialty | Care Team | Description | +--------+ + + + + | 03/12/ | Office | Nephrology | Litzy, | | | 2019 | Visit | | ADARSH [address] | | | | | | [address] [facility] | | | | | | [address] | | | | | | [phone] | | | | | | | | +--------+ + + + + | 04/16/ | Office | Cardiology | Alin Anderson | | | 2019 | Visit | | MD Cheryl Arreguin | | | | | | [address] | | | | | | [place] [address] | | | | | | [phone] | | | | | | | | +--------+ + + + + | 04/16/ | Procedure | Cardiology | | | | 2019 | visit | | | | +--------+ + + + + | 04/25/ | Office | Cardiology | DaeRocio, | | | 2019 | Visit | | MD Cheryl URENA | | | | | | [place] | | | | | | [address] | | | | | | | | +--------+ + + + + documented as of this encounter Visit Diagnoses + + | Diagnosis | + + | Coronary artery disease involving [place] coronary artery of [place] heart without | | angina pectoris - Primary | + + documented in this encounter"
--- OUTSIDE RECORDS SUMMARY | ~2020-03-04 | XMS | Encounter Summary ---
Demographics + + + | Address | [address] | | | [place] [address] | + + + | Home Phone | | + + + | Preferred Language | Unknown | + + + | Marital Status | | + + + | Rastafari Affiliation | Unknown | + + + | Race | Unknown | + + + | Ethnic Group | Unknown | + + + Author + + + | Author | [facility] | | | and [place] | + + + | Organization | [facility] | | | and [place] | + + + | Address | Unknown | + + + | Phone | Unavailable | + + + Support + + + + + | Name | Relationship | Address | Phone | + + + + + | [place] Will | ECON | [place], [place] | | | | | [address] | | + + + + + Care Team Providers + +------+ + | Care Hourly Sales Staff Name | Role | Phone | + [...] [address] [place] | | | | | [place], [place] | [place] [address] | | | | | [address] | [phone] | | | | | [phone] | | | +--------+ + + + [...] [place] | | | | | | [address] | | | | | | | | +--------+ + + + + | 04/16/ | Office | Cardiology | Alin Anderson | | | 2019 | Visit | | MD Cheryl Arreguin | | | | | | [address] | | | | | | [place] [address] | | | | | | [phone] | | | | | | | [...] [place] | | | | | | [address] | | | | | | | [...]
--- OUTSIDE RECORDS SUMMARY | ~2020-03-04 | XMS | Encounter Summary ---
Demographics + + + | Address | [address] | | | [place] [address] | + + + | Home Phone | | + + + | Preferred Language | Unknown | + + + | Marital Status | | + + + | Yazdanism Affiliation | Unknown | + + + | Race | Unknown | + + + | Ethnic Group | Unknown | + + + Author + + + | Author | [facility] | | | and [place] | + + + | Organization | [facility] | | | and [place] | + + + | Address | Unknown | + + + | Phone | Unavailable | + + + Support + + + + + | Name | Relationship | Address | Phone | + + + + + | [place] Will | ECON | [place], [place] | | | | | [address] | | + + + + + Care Team Providers + +------+ + | Care Director Case Name | Role | Phone | + +------+ + PCP | Unavailable | + +------+ + Encounter Details +--------+ + + + + | Date | Type | Department | Care Team | Description | +--------+ + + + + | 01/24/ | Abstract | [facility] [place] | Litzy, | | | 2018 | | NEPHROLOGY [address] | [address] | | | | | [address] | [address] | | | | | [place], [place] | [address] [place], [place] | | | | | [address] | [address] | | | | | [phone] | | | +--------+ + + + [...] [place] | | | | | | [address] | | | | | | | | +--------+ + + + + | 04/16/ | Office | Cardiology | Alin Anderson | | | 2019 | Visit | | MD Cheryl Arreguin | | | | | | [address] | | | | | | [place] [address] | | | | | | [phone] | | | | | | | [...] [place] | | | | | | [address] | | | | | | | | +--------+ + + + + documented as of this encounter Procedures + +--------+ + + + | Procedure Name | Priori | Date/Time | Associated Diagnosis | Comments | | | ty | | | | + +--------+ + + + | EXTERNAL LAB: DONTE | Routin | 01/13/2019 | | Results for this | | | e | | | procedure are in the | | | | | | results section. | + +--------+ + + + | EXTERNAL LAB: | Routin | 01/13/2019 | | Results for this | | GLUCOSE | e | | | procedure are in the | | | | | | results section. | + +--------+ + + + | EXTERNAL LAB: | Routin | 01/13/2019 | | Results for this | | CALCIUM | e | | | procedure are in the | | | | | | results section. | + +--------+ + + + | EXTERNAL LAB: CARBON | Routin | 01/13/2019 | | Results for this | | DIOXIDE | e | | | procedure are in the | | | | | | results section. | + +--------+ + + + | EXTERNAL LAB: | Routin | 01/13/2019 | | Results for this | | CHLORIDE | e | | | procedure are in the | | | | | | results section. | + +--------+ + + + | EXTERNAL LAB: | Routin | 01/13/2019 | | Results for this | | POTASSIUM | e | | | procedure are in the | | | | | | results section. | + +--------+ + + + | EXTERNAL LAB: SODIUM | Routin | 01/13/2019 | | Results for this | | | e | | | procedure are in the | | | | | | results section. | + +--------+ + + + | EXTERNAL LAB: B TYPE | Routin | 01/13/2019 | | Results for this | | NATURETIC PEPTIDE | e | | | procedure are in the | | | | | | results section. | + +--------+ + + + | EXTERNAL LAB: EGFR | Routin | 01/13/2019 | | Results for this | | | e | | | procedure are in the | | | | | | results section. | + +--------+ + + + | EXTERNAL LAB: | Routin | 01/13/2019 | | Results for this | | CREATININE | e | | | procedure are in the | | | | | | results section. | + +--------+ + + + documented in this encounter Results External Lab: BUN (01/13/2019) + +-------+ + + + | Component | Value | Ref Range | Performed | Pathologist | | | | | At | Signature | + +-------+ + + + | BUN, | 34 | | | | | External | | | | | + +-------+ + + + External Lab: Glucose (01/13/2019) + +-------+ + + + | Component | Value | Ref Range | Performed | Pathologist | | | | | At | Signature | + +-------+ + + + | Glucose, | 132 | | | | | External | | | | | + +-------+ + + + External Lab: Calcium (01/13/2019) + +-------+ + + + | Component | Value | Ref Range | Performed | Pathologist | | | | | At | Signature | + +-------+ + + + | Calcium, | 9.1 | | | | | External | | | | | + +-------+ + + + External Lab: Carbon Dioxide (01/13/2019) + +-------+ + + + | Component | Value | Ref Range | Performed | Pathologist | | | | | At | Signature | + +-------+ + + + | Carbon | 30 | | | | | Dioxide, | | | | | | External | | | | | + +-------+ + + + External Lab: Chloride (01/13/2019) + +-------+ + + + | Component | Value | Ref Range | Performed | Pathologist | | | | | At | Signature | + +-------+ + + + | Chloride, | 99 | | | | | External | | | | | + +-------+ + + + External Lab: Potassium (01/13/2019) + +-------+ + + + | Component | Value | Ref Range | Performed | Pathologist | | | | | At | Signature | + +-------+ + + + | Potassium, | 3.8 | | | | | External | | | | | + +-------+ + + + External Lab: Sodium (01/13/2019) + +-------+ + + + | Component | Value | Ref Range | Performed | Pathologist | | | | | At | Signature | + +-------+ + + + | Sodium, | 143 | | | | | External | | | | | + +-------+ + + + External Lab: B Type Naturetic Peptide (01/13/2019) + +-------+ + + + | Component | Value | Ref Range | Performed | Pathologist | | | | | At | Signature | + +-------+ + + + | B-Type | 597 | | | | | Naturetic | | | | | | Peptide, | | | | | | External | | | | | + +-------+ + + + + + | Specimen | + + | Blood | + + External Lab: eGFR (01/13/2019) + +-------+ + + + | Component | Value | Ref Range | Performed | Pathologist | | | | | At | Signature | + +-------+ + + + | eGFR, | 24 | | | | | External | | | | | + +-------+ + + + + + | Specimen | + + | Blood | + + External Lab: Creatinine (01/13/2019) + +-------+ + + + | Component | Value | Ref Range | Performed | Pathologist | | | | | At | Signature | + +-------+ + + + | Creatinine, | 2.7 | | | | | External | | | | | + +-------+ + + + + + | Specimen | + + | Blood | + + documented in this encounter Visit Diagnoses Not on filedocumented in this encounter"
--- OUTSIDE RECORDS SUMMARY | ~2020-03-04 | XMS | Encounter Summary ---
Demographics + + + | Address | [address] | | | [place] [address] | + + + | Home Phone | | + + + | Preferred Language | Unknown | + + + | Marital Status | | + + + | Spiritism Affiliation | Unknown | + + + [...] [place], [place] | | | | | [address] | | + + + + + Care Team Providers + +------+ + | Care Can Capper Name | Role | Phone | + +------+ + PCP | Unavailable | + +------+ + Reason for Visit + + + | Reason | Comments | + + + | Cardiac Rehab | | + + + Evaluate & Treat (Routine) +--------+ + + + + + | Status | Reason | Specialty | Diagnoses / | Referred By | Referred To | | | | | Procedures | Contact | Contact | +--------+ + + + + + | Closed | Specialty | Cardiac | Diagnoses | [place], | [facility] | | | Services | Rehabilitatio | Heart | MD Randy | | | | Required | n | failure, | [address] | Rehabilitatio | | | | | unspecified | [address] | [address] | | | | | HF | [place], | [address] [place] | | | | | chronicity, | [place] [address] | [place], [place] | | | | | unspecified | Phone: | [phone] | | | | | heart | [phone] | Phone: | | | | | failure type | Fax: | [phone] | | | | | (HCC) | [phone] | Fax: | | | | | Procedures | | [phone] | | | | | [place] | | | | | | | OUTPATIENT | | | | | | | CARDIAC | | | | | | | REHAB W/O | | | | | | | CONT ECG | | | | | | | MONITOR | | | +--------+ + + + + + Encounter Details +--------+---------+ + + + | Date | Type | Department | Care Team | Description | +--------+---------+ + + + | 04/22/ | Office | [facility] | Randy Figueroa, | Chronic systolic | | 2018 | Visit | MED CTR CARDIAC | [address] | congestive heart | | | | REHABILITATION [address] [place], | failure (HCC) | | | | [address] [place] | [place] [address] | (Primary Dx); | | | | [place] [address] | [phone] | Chronic systolic | | | | [phone] | | heart failure (HCC) | | | | | Maria Esther Fields RN | | +--------+---------+ + + + Social [...] documented as of this encounter Progress Notes Maria Esther Fields RN - 04/22/2018 1:00 PM PDT [facility]ATION [address] [place] [address] Cardiac Rehab Evaluation Date: 04/22/2018 Patient Information Patient Name: Bob Will Date of : 1955 Age: 62 y.o. Referring Provider: Randy Figueroa MD Encounter Diagnoses Code Name Primary? I50.22 Chronic systolic congestive heart failure (HCC) Yes I50.22 Chronic systolic heart failure (HCC) Cardiac Rehab Phase II Leon atment Plan Bob Will (Bob) is a 62 y.o. 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 He has recently switched from Lisinopril to Entresto. He has started to exercise at home wi th his , walking and riding his bike. Fall Ri sk Assessment Fall Risk: 2 [...] No Action taken: No concerns Exercise LVEF: 30-35% Risk stratification category: High Initial exercise/activity assessment: Date: 04/22/18 Mode: Biostep Duration: 10 min X 2.48 M ETs RPE: 3-4/10 30 Day exercise assessment: Date: Mode: Duration: RPE: /10 60 Day exercise assessment: Date: Mode: Duration: RPE: /10 Discharge exercise assessment: Date: Mode: Duration: RPE: /10 Sessio n Prescription Modes: Recumbent elliptical, Ergometer [...] cardiac rehab as listed below, Completed Date: 04/07 02/22 - Equipment orientation -Warm up and cool [...] conversation they appear to have good comprehension. Norma: Living Well with Congestive Heart Failure book Date received: 04/22/18 Ta rget Goal(s) Aerobic- moderate intensity activity 30 to 60 minutes per day for at least 5 days per week Supplementing aerobic activity with an increase in daily lifestyle activities Resistance training at least two days per week COOP score: 25/40 Progression/Pro ne toward Goals Date: 04/22/18 Notes: He is riding his bike and walking without any adverse symp toms. Nutr ition and Weight Assessment: Height: 5'10 " Admission Weight: 222# 30 Day W eight: BMI: 31.8 60 Day Weight: Discharge Weight: Weight Goal: Lose 1-2 # per week Waist Circumference: D/C Circum ference: Diet Assessment Initial Rate Your Plate Score: 63 Discharge Rate Your Plate Sco re: Special diet? No Alcohol? Inte rvention and Education Points listed below- Date Completed: 04/22/18 -Goals of BMI, Waist circumference - Encourage weight reduction and/or maintenance through physical activity/ structured exe rcise, caloric intake, and/ or behavioral management, goal setting -Heart Healthy Dietary Education Date: 04/22/18 -Referral to Preforms Laminator: Date: -DVD: Healthy Eating For Life Date: Target Goal(s) -Patient weight has maintained or improved toward BMI <25 -Waist circumference <35 inches for women < 40 inches for men -Diet low in saturated fats, simple carbs, high in fruits, vegetables and whole grains Progression/ Progress toward Goals Date: 04/22/18 Notes: His is very supportive in preparing low sodium, hear t healthy meals. Hypertension History of hypertension: yes Treatment: On medication Initial Resting BP: 92/50 Peak Exercise BP: 112/60 30 Day Resting BP: 30 Day Exercise BP: 60 Day Resting BP: 60 Day Exercise BP: Discharge BP: Discharge Exercise BP: Inte rventions and Education Points listed below- Date Completed: 04/22/18 -Understanding blood pressure and goal blood pressure -BP medictions - Lifestyle modifications: weight control, increased physical activity, alcohol moderation, sodium reduction, emphasis on increased fruit, vegetable and low fat dairy consumption Individual cardiac risk factors reviewed Progress toward Goals: Date: Target Goal Blood pressure Goal: <130/80 Progression /Progress toward Goals Date: 04/22/18 Notes: He eats a low sodium diet, is exercising daily and is haider ling to lose weight by limiting portions. Dyslipidemia History of Dyslipidemia: Yes Treatment: On medication Most recent lipid panel: CHOL 89 TRIG 131 HDL 21 LDL 42 Interven tions and Education Points listed below- Date Completed: 04/22/18 -Advocate for cholesterol medication if appropriate -Encourage [...] >40 Triglycerides <130 Progression/P rogress toward Goals Date: 04/22/18 Notes: Low HDLs is willing to exercise daily, eats low saturated fat diet. Niharika betes Mellitus History of diabetes: No Treatment: Last hemoglobin A1C: Value: Date: Interventions -Evaluate blood sugar pre- and post- exercise until stable. Date: Range: -Referral to Accounts Specialist Date: Education Points listed below- Date Completed: -Signs and symptoms of hypoglycemia -Impact of diabetes on cardiovascular risk, including understanding the importance of lifes tyle modifications, including physical activity, weight management, blood pressure control a nd lipid management Date completed: Diabetic diet instruction Date completed: Target Goals -Stable pre and post exercise glucoscans -HgbA1C: <7% Progression/ Progress toward Goals Date: Notes: Tobacco Use Active tobacco user: No Type [...] Date: Notes: Psychosocial Depression: occasionally Initial PHQ-9: 15 30 Day PHQ-9: 90 Day PHQ-9 Discharge PHQ-9: Support systems: and family Notes: Tired, trouble concentrating, eating too much, difficulty sleeping- Denies SI or HI Inter vention and Education Points listed below- Date Completed:04/22/18 -Assess presence or absence of depression using [...] Retest PHQ, watch for signs of depression. Patients stated Goals for Cardiac Rehab: To get into better shape and gain confidence after all that I've been through. Electronically signed by: Maria Esther Fields RN, 04/22/2018 14:00 Patient Name: Bob Will/: 1955/ signed by Randy Figueroa MD at 04/22/2018 2:15 PM PDTdocumented in this encounter Plan of Treatment +--------+ + + + + | Date | Type | Specialty | Care Team | Description | +--------+ + + + + | 03/12/ | Office | Nephrology | Litzy, | | | 2019 | Visit | | [address] [address] | | | | | | [address] | | | | | | [address] [place] | | | | | | [address] | | | | | | | | +--------+ + + + + | 04/16/ | Office | Cardiology | Alin Anderson | | | 2019 | Visit | | [address] | | | | | | [address] | | | | | | [place] [address] | | | | | | [phone] | | | | | | | | +--------+ + + + + | 04/16/ | Procedure | Cardiology | | | | 2019 | visit | | | | +--------+ + + + + | 04/25/ | Office | Cardiology | Rocio Pearl, | | | 2019 | Visit | | MD [address] | | | | | | [place] | | | | | | [address] | | | | | | | | +--------+ + + + + documented as of this encounter Visit Diagnoses + + | Diagnosis | + + | Chronic systolic congestive heart failure (HCC) - Primary Chronic systolic heart | | failure | + + | Chronic systolic heart failure (HCC) Chronic systolic heart failure | + + documented in this encounter
--- OUTSIDE RECORDS SUMMARY | ~2020-03-04 | XMS | Encounter Summary ---
Demographics + + + | Address | [address] | | | [place] [address] | + + + | Home Phone | | + + + | Preferred Language | Unknown | + + + | Marital Status | | + + + | Oriental Orthodox Affiliation | Unknown | + + [...] [place] | | | | | [address] | | + + + + + Care Team Providers + +------+ + | Care Heavy Equipment Service Technician Name | Role | Phone | + +------+ + | Amy Olivares MD | PCP | | + +------+ + Reason for Visit + + + | Reason | Comments | + + + | Follow-up | | + + + Evaluate & Treat (Routine) +--------+--------+ + + + + | Status | Reason | Specialty | Diagnoses / | Referred By | Referred To | | | | | Procedures | Contact | Contact | +--------+--------+ + + + + | Closed | | Cardiology | Diagnoses | Marshall, | Dae, | | | | | Ischemic | Amy Dai MD | MD Rocio | | | | | cardiomyopat | [address] | [address] | | | | | hy Chronic | [address] | [place] | | | | | systolic | [place], | [place] | | | | | (congestive) | [place] [address] | [address] Phone: | | | | | heart | Phone: | [phone] | | | | | failure | [phone] | Fax: | | | | | (HCC) | Fax: | [phone] | | | | | Chronic | [phone] | | | | | | systolic | | | | | | | (congestive) | | | | | | | heart | | | | | | | failure | | | | | | | (HCC), | | | | | | | Severe | | | | | | | Ischemic | | | | | | | Cardiomyopat | | | | | | | hy with EF | | | | | | | of 25% with | | | | | | | recurrent, | | | | | | | hospitalisat | | | | | | | ions for CHF | | | | | | | | | | | | | | exacerbation | | | | | | | s, | | | | | | | complicated | | | | | | | with CKD | | | | | | | stage 4 | | | | | | | Procedures | | | | | | | consult | | | +--------+--------+ + + + + Encounter Details +--------+---------+ + + + | Date | Type | Department | Care Team | Description | +--------+---------+ + + + | 10/05/ | Office | [facility] | Rocio Em, | Ischemic | | 2020 | Visit | CARDIOLOGY [place] | [address] | cardiomyopathy | | | | [address] | [place] | (Primary Dx); | | | | [address] | [address] | Chronic systolic | | | | [place] | | congestive heart | | | | [address] | | failure (HCC); | | | | [phone] | | Coronary artery | | | | | | disease involving | | | | | | ambler coronary | | | | | | artery of ambler | | | | | | heart without angina | | | | | | pectoris; Chronic | | | | | | kidney disease, | | | | | | stage IV (severe) | | | | | | (HCC) | +--------+---------+ + + + Social History [...] + + + | Blood Pressure | 96/56 | 10/05/2019 12:51 PM | | | | | PST | | + + + + + | Pulse | 64 | 10/05/2019 12:51 PM | | | | | PST | | + + + + + | Temperature | - | - | | + + + + + | Respiratory Rate | - | - | | + + + + + | Oxygen Saturation | 95% | 10/05/2019 12:51 PM | | | | | PST | | + + + + + | Inhaled Oxygen | - | - | | | Concentration | | | | + + + + + | Weight | 95.3 kg (210 lb) | 10/05/2019 12:51 PM | | | | | PST | | + + + + + | Height | 175.3 cm (5' 9") | 10/05/2019 12:51 PM | | | | | PST | | + + + + + | Body Mass Index | 31.01 | 10/05/2019 12:51 PM | | | | | PST | | + + + + + documented in this encounter Progress Notes Rocio Em MD - 10/05/2019 1:00 PM PSTFormatting of this note might be different f rom the original. Date of visit: 10/05/2019 Primary Care Physician: Amy Olivarse MD CHIEF COMPLAINT: Chief Complaint Patient presents with Follow-up HISTORY OF PRESENT ILLNESS: Bob is 63 y.o. here for follow-up visit. Complex past medical history and presentation. Ischemic cardiomyopathy, S/P PCI to LM, LAD and LCX S/P Defibrillator for primary preventio n. Since prior evaluation was started on beta-blockers currently on carvedilol 3.125 mg twice daily. Continues to be asymptomatic denies any chest pain or shortness of breath. Limited activit y level. Last hospitalization was in February 2019 for acute on chronic systolic congestive heart failur e. Used to follow-up with [facility] last time evaluated in March 2019. Patient has a history of anterior myocardial infarction, hospitalized in [facility] [place], March 15, 2017 at that time was found to have thrombosed left main artery that was treated with PCI to the left main and into LAD and left circumflex. At that time h ad ECMO. He was found to have left atrial clot which was treated with warfarin. On October 09, 2017, another angiogram was done and patient was found to have severe ostial in-stent stenosis of the left circumflex artery and severe in-stent stenosis of the distal left main extending to the LAD. He had PCI with 3.0 x 18 mm resolute ANY, for distal LM was angioplastied with non complian t kissing balloon 3.5 mm. May of 2018, another angiogram was done, patient had again instent restonosis of both distal LM into LAD and ostial LCX. Was evaluated by CT surgery, was declined. Angioplasty of the LCX was done by 3.75 x 16 nc balloon. Status post PCI to left main with bifurcation stent to LAD and left circumflex on March 2017 , had at that time cardiogenic shock, left atrial appendage thrombus by report. His systoli c function was severely impaired hence he has MAGAZINE FILLER therapy biventricular ICD implanted in Oct. Has been having recurrent in-stent stenosis. States post circumflex system whi ch was done in May 2018 in [facility]. Previously was treated with Sacubitril/Valsartan and metoprolol. Which both were stopped a pparently for asymptomatic hypertension. Currently on low-dose lisinopril 2.5 mg. On amiod arone 200 mg daily. On torsemide and metolazone 2.5 mg twice a week. Past medical history, SH, FH, and medications were reviewed in the chart. Medications: Outpatient Encounter Medications as of 10/05/2019 Medication Sig Dispense Refill acetaminophen (TYLENOL) 500 mg tablet Take 1,000 mg by mouth Daily as needed. amiodarone (PACERONE) 200 mg tablet Take 1 tablet by mouth Daily. 90 tablet 3 aspirin 81 MG tablet Take 81 mg by mouth Daily. atorvaSTATin (LIPITOR) 80 MG tablet TAKE ONE TABLET BY MOUTH EVERY DAY IN THE EVENING 9 0 tablet 3 BISACODYL 5 mg EC tablet Take 5 mg by mouth Daily. carvedilol (COREG) 3.125 mg tablet Take 3.125 mg by mouth 2 times daily (with breakfast & dinner). Cholecalciferol (VITAMIN D-3) 76265 units CAPS Take 50,000 Units by mouth Once a week. clopidogrel (PLAVIX) 75 mg tablet Take 75 mg by mouth Daily. famotidine (PEPCID) 20 mg tablet Take 10 mg by mouth nightly. ferrous sulfate 325 mg tablet Take 325 mg by mouth Three times a week. gabapentin (NEURONTIN) 100 mg capsule Take 100 mg by mouth 2 times daily. HYDROcodone-acetaminophen (NORCO) 10-325 mg per tablet Take 1 tablet by mouth as needed . lactulose 10 g/15 mL liquid Take 15 mLs by mouth 2 times daily. lisinopril (PRINIVIL,ZESTRIL) 2.5 MG tablet Take 2.5 mg by mouth Daily. metOLazone 2.5 mg tablet Take 2.5 mg by mouth Twice a week. nitroglycerin (NITROSTAT) 0.[address] 1 tablet under the tongue every 5 shai janeth as needed for Chest pain. 25 tablet 3 potassium chloride (KLOR-CON) 10 mEq CR tablet Take 3 tablets by mouth 3 times daily. torsemide (DEMADEX) 20 mg tablet Take 60 mg by mouth 2 times daily. traMADol (ULTRAM) 50 mg tablet Take 150 mg by mouth Twice daily as needed. No facility-administered encounter medications on file as of 10/05/2019. Allergies Allergies Allergen Reactions Ondansetron Other (See Comments) Twitching and numbness of arm Promethazine Other (See Comments) Twitching and numbness of arm REVIEW OF SYSTEMS: Constitutional: Mild fatigue weight has been stable. HEENT: Negative for nosebleeds, ear discharge, nasal congestion or soar throat. Eyes: Negative for visual disturbance, redness, or secretion. Respiratory: Negative for cough, sputum production, hemoptysis, wheezing. Cardiovascular: As HPI. Gastrointestinal: Negative for nausea, vomiting, diarrhea, abdominal pain and blood in stoo l. Genitourinary: Negative for dysuria or hematuria. Musculoskeletal: Chronic arthritic pain. Uses a walker and a cane to ambulate. Skin: Negative for rash. Neurological: Negative for dizziness. No numbness. No recent falls. No slurred speech. Hematological: No significant bruising. Psychiatric/Behavioral: No depression or anxiety. PHYSICAL EXAM Vital Signs: BP 96/56 | Pulse 64 | Ht 1.753 m (5' 9") | Wt 95.3 kg (210 lb) | SpO2 95% | BMI 31.01 kg/m GENERAL APPEARANCE: Alert, oriented, cooperative, no distress, appears stated age. HEENT: Extraocular movements were intact. No jaundice. Pupiles round and reactive. NECK: No JVD, lymphadenopathy. Carotid upstrokes normal. No carotid bruit heard. CARDIAC: Regular rhythm and rate. There is normal S1 and S2. No galop. No murmur. CHEST: Normal bilateral symmetrical chest excursion.mild bilateral wheezing. ABDOMEN: Soft.No tenderness or guarding. No palpable organs. Active bowel sounds. EXTREMITIES: No lower extremities edema, cyanosis or clubbing. NEURO: Alert and oriented times three with no focal deficit. Cranial nerves are grossly no rmal. SKIN: Warm and dry. No rash. Psych: Normal affect and mood. DATA 03/03/2019 WBC 17.8, hemoglobin 11.7, platelets 415. Sodium 134, potassium 4.4, chloride 95, bicarb 2 1, BUN 50, creatinine 2.75, GFR 23. AST 266, ALT 146, alk phos 86, BNP 2010 Lab Results Component Value Date/Time NA 136 08/26/2018 11:33 AM NA 136 06/10/2018 11:28 AM NA 141 05/21/2018 03:03 AM K 5.1 08/26/2018 11:33 AM K 4.6 06/10/2018 11:28 AM K 4.5 05/21/2018 03:03 AM CO2 24 08/26/2018 11:33 AM CO2 24 06/10/2018 11:28 AM CO2 25 05/21/2018 03:03 AM BUN 37 (H) 08/26/2018 11:33 AM BUN 24 (H) 06/10/2018 11:28 AM BUN 24 05/21/2018 03:03 AM CREA 2.01 (H) 08/26/2018 11:33 AM CREA 1.63 (H) 06/10/2018 11:28 AM CREA 1.69 (H) 05/21/2018 03:03 AM CALCIUM 8.6 08/26/2018 11:33 AM CALCIUM 9.1 06/10/2018 11:28 AM CALCIUM 8.7 05/21/2018 03:03 AM MG 2.5 (H) 05/13/2018 03:24 AM MG 2.4 05/12/2018 04:35 AM MG 2.4 05/04/2018 03:59 AM Lab Results Component Value Date/Time WBC 8.9 08/26/2018 11:33 AM WBC 6.1 05/21/2018 03:03 AM WBC 8.0 05/20/2018 05:38 AM HGB 12.8 (L) 08/26/2018 11:33 AM HGB 13.0 (L) 05/21/2018 03:03 AM HGB 13.5 05/20/2018 05:38 AM HCT 40.7 08/26/2018 11:33 AM HCT 38.0 (L) 05/21/2018 03:03 AM HCT 39.5 05/20/2018 05:38 AM HCT 40.5 05/15/2018 08:26 AM HCT 43.3 10/07/2017 03:51 AM HCT 41.4 10/06/2017 03:48 AM MCV 92.9 08/26/2018 11:33 AM MCV 91.6 05/21/2018 03:03 AM MCV 91.9 05/20/2018 05:38 AM LABPLAT 150 05/13/2018 03:24 AM LABPLAT 176 05/12/2018 04:35 AM LABPLAT 175 05/11/2018 05:14 AM Lab Results Component Value Date ALT 31 08/26/2018 ALT 57 05/14/2018 CHOL 94 (L) 06/10/2018 TRIG 211 (H) 06/10/2018 HDL 26 (L) 06/10/2018 LDLEX 31 10/20/2018 LDLEX 42 10/10/2017 GLUF 134 (H) 05/13/2018 GLUF 132 (H) 05/12/2018 TSH 1.130 05/02/2018 EC07/25/2019 Reviewed showed normal sinus rhythm with ventricular paced appropriate sensing and capture. From [facility] showed atrial sensed and ventricular paced rhythm. 02/08/2019 From [facility] showing atrial flutter with ventricular paced rhythm, rapid ventr icular response. Last Echo: 10/24/2018 TDS, mildly dilated LV, akinetic anterior and inferior segments 25-30%. Last Stress test: Last Cath: May of 2018, another angiogram was done, patient had again instent restono sis of both distal LM into LAD and ostial LCX. Was evaluated by CT surgery, was declined. Angioplasty of the LCX was done by 3.75 x 16 nc balloon. October 09, 2017, another angiogram was done and patient was found to have severe ostial in -stent stenosis of the left circumflex artery and severe in-stent stenosis of the distal lef t main extending to the LAD. He had PCI with 3.0 x 18 mm resolute ANY, for distal LM was angioplastied with non complian t kissing balloon 3.5 mm. 03/15/2019 Xience 3.0 x 23 LAD, Xience 2.5 x 18 mm Proc LCX Last US carotid: [employer] BiV ICD 10/16/2017, [id number] ASSESSMENT: Patient is 63 y.o. with 1. Severe coronary artery disease with recurrent instent restenosis, 2 angioplasties after the initial PCI on March 2017. 2. Severe ischemic cardiomyopathy, NYH class III, class C. 3. Chronic impaired systolic function, due to above. S/P MAGAZINE FILLER therapy. 4. Chronic kidney disease stage IV. Severe. Follows up with nephrology. 5. History of GI bleed. 6. History of left atrial thrombus. 7. Paroxysmal atrial flutter, CHADSVASc score 5, Not on anticoagulation. 8. History of cerebral vascular accident. Plan: Complex past medical history and presentation. Tolerating low-dose carvedilol 3.125 mg twice daily and lisinopril 2.5 mg once a day. Could not tolerate Sacubitril was stopped due to symptomatic hypotension. Will need to be on termite control service representative clopidogrel and aspirin due to recurrent instent restonisis, w as deemed due to bifurcating stents. Deemed to be high risk for anticoagulation by EP team secondary to previous GI bleed. History is positive for previous left atrial thrombus and paroxysmal atrial flutter, curren tly on rhythm control strategy amiodarone 200 mg daily. We will continue to follow-up with EP team in regard to synchronization therapy. Continue with Torsemide and metolazone according to nephrology recommendations. Further recommendations will follow. Will call with any change in symptoms. *This report has been prepared using a voice recognition system. The report was reviewed fo r accuracy, however, sound-alike word errors, addition and/or deletions may occur. If there is any question about this report please contact me. Rocio Em MD, MPH documented in this encounter Plan of Treatment +--------+ + + + + | Date | Type | Specialty | Care Team | Description | +--------+ + + + + | 03/12/ | Office | Nephrology | Litzy, | | | 2019 | Visit | | [address] | | | | | | [address] [facility] | | | | | | [address] [place] [place] | | | | | | [id number] | | | | | | | | +--------+ + + + + | 04/16/ | Office | Cardiology | Alin Anderson | | | 2019 | Visit | | MD [address] | | | | | | [address] | | | | | | [place] [address] | | | | | | [phone] | | | | | | | | +--------+ + + + + | 04/16/ | Procedure | Cardiology | | | | 2019 | visit | | | | +--------+ + + + + | 04/25/ | Office | Cardiology | Rocio Em, | | | 2019 | Visit | | MD [address]yl [address] | | | | | | [place], [place] | | | | | | [address] | | | | | | | | +--------+ + + + + documented as of this encounter Visit Diagnoses + + | Diagnosis | + + | Ischemic cardiomyopathy - Primary Other specified forms of chronic ischemic heart | | disease | + + | Chronic systolic congestive heart failure (HCC) Chronic systolic heart failure | + + | Coronary artery disease involving ambler coronary artery of ambler heart without | | angina pectoris | + + | Chronic kidney disease, stage IV (severe) (HCC) Chronic kidney disease, Stage IV | | (severe) | + + documented in this encounter
--- OUTSIDE RECORDS SUMMARY | ~2020-03-04 | XMS | Encounter Summary ---
Demographics + + + | Address | [address] | | | [place] [address] | + + + | Home Phone | | + + + | Preferred Language | Unknown | + + + | Marital Status | | + + + | Sabianist Affiliation | Unknown | + + + | Race | Unknown | + + + | Ethnic Group | Unknown | + + + Author + + + | Author | [facility] | | | and [place] | + + + | Organization | [facility] | | | and [place] | + + + | Address | Unknown | + + + | Phone | Unavailable | + + + Support + + + + + | Name | Relationship | Address | Phone | + + + + + | [place] Will | [address] | [place] | | | | | [address] | | + + + + + Care Team Providers + +------+ + | Care Senior Economist Name | Role | Phone | + [...] + + + | Closed | | Cardiac | Diagnoses | Olivares, | [facility] | | | | Rehabilitatio | Chronic | Amy Dai MD | | | | | n | systolic | [address] | Rehabilitatio | | | | | (congestive) | [place] | [address] | | | | | heart | [place], | [place] | | | | | failure | [place] [address] | [place] | | | | | (HCC) | Phone: | [phone] | | | | | I50.22 | [phone] | Phone: | | | | | Procedures | Fax: | [phone] | | | | | Cardiac | [phone] | Fax: | | | | | Rehab | | [phone] | +--------+--------+ + + + + Encounter Details +--------+---------+ + + + | Date | Type | Department | Care Team | Description | +--------+---------+ + + + | 06/07/ | Office | [facility] | Amy Olivares V, | Chronic systolic CHF | | 2019 | Visit | [facility] | MD [address] | (congestive heart | | | | REHABILITATION [address] [place], [place] | failure) ([facility]) | | | | [address] | [id number] | | | | | [place] [address] | | | | | | [phone] | | | +--------+---------+ + + + [...] documented as of this encounter Progress Notes Kathy Garcia, CLINICAL DOCUMENTATION IMPROVEMENT SPECIALIST - 06/07/2019 12:00 PM PDTFormatting of this note might be different f rom the original. [facility] [address] [place] [address] Cardiac Rehab Date: 06/07/2019 Patient Information Patient Name: Bob Will Date of : 1955 Age: 63 y.o. Encounter Diagnoses Code Name Primary? I50.22 Chronic systolic CHF (congestive heart failure) ([facility]) Number of Visits Approved: 27 Taken Medications Today? Yes Any Changes in Medications? No Yes, off metropolol Any Problems to Report? No Pain level and location: Home exercise: Denies any adverse symptoms during exercise. Paced rhythm without ectopy. SBP with an appropriate rise during exertion. Compliant with medications and therapeutic lifestyle changes. Continue monitored exercise. Please see Trendsetter for graphics. Any abnormal vital signs or symptoms will be recorded in progress note. Vital signs record and rhythm strips scanned into Media section each week. Appointment Duration: Electronically signed by: Kathy Garcia RRT, 06/07/2019 14:37 Patient Name: Bob Will/: 1955/ documented in this encounter Plan of Treatment +--------+ + + + + | Date | Type | Specialty | Care Team | Description | +--------+ + + + + | 03/12/ | Office | Nephrology | Juan Pablothalyocasta, | | | 2019 | Visit | | ADARSH [address] | | | | | | [address] [place] | | | | | | [address] | | | | | | [id number] | | | | | | | | +--------+ + + + + | 04/16/ | Office | Cardiology | Alin Anderson | | | 2019 | Visit | | MD [address]yl [address] | | | | | | [address] | | | | | | [place] [address] | | | | | | [phone] | | | | | | | [...] [place] | | | | | | [address] | | | | | | | | +--------+ + + + + documented as of this encounter Visit Diagnoses + + | Diagnosis | + + | Chronic systolic CHF (congestive heart failure) (HCC) | + + documented in this encounter"
--- OUTSIDE RECORDS SUMMARY | ~2020-03-04 | XMS | Encounter Summary ---
Demographics + + + | Address | [address] | | | [place] [address] | + + + | Home Phone | | + + + | Preferred Language | Unknown | + + + | Marital Status | | + + + | Mandaeism Affiliation | Unknown | + + + | Race | Unknown | + + + | Ethnic Group | Unknown | + + + Author + + + | Author | [facility] | | | and [place] | + + + | Organization | [facility] | | | and [place] | + + + | Address | Unknown | + + + | Phone | Unavailable | + + + Support + + + + + | Name | Relationship | Address | Phone | + + + + + | [place] | [place] | [place] | | | | | [address] | | + + + + + Care Team Providers + +------+ + | Care District Ranger Name | Role | Phone | + +------+ + | Amy Olivares MD | PCP | | + +------+ + Encounter Details +--------+ + + + + | Date | Type | Department | Care Team | Description | +--------+ + + + + | 09/27/ | Abstract | [facility] | [place], | | | 2019 | | NEPHROLOGY [address] | [address] | | | | | [address] | [address] | | | | | [place], [place] | [address] [place], [place] | | | | | [address] | [address] | | | | | [phone] | | | +--------+ + + + [...] | | | | | [address] [facility] | | | | | | [address] | | | | | | [address] | | | | | | | | +--------+ + + + + | 04/16/ | Office | Cardiology | Alin Anderson | | | 2019 | Visit | | MD Cheryl Arreguin | | | | | | [address] | | | | | | [place] [address] | | | | | | [phone] | | | | | | | | +--------+ + + + + | 04/16/ | Procedure | Cardiology | | | | 2019 | visit | | | | +--------+ + + + + | 04/25/ | Office | Cardiology | Rocio Pearl, | | | 2019 | Visit | | [address] | | | | | | [place] | | | | | | [address] | | | | | | | | +--------+ + + + + documented as of this encounter Procedures + +--------+ + + + | Procedure Name | Priori | Date/Time | Associated Diagnosis | Comments | | | ty | | | | + +--------+ + + + | EXTERNAL LAB: DONTE | Routin | 05/31/2019 | | Results for this | | | e | | | procedure are in the | | | | | | results section. | + +--------+ + + + | EXTERNAL LAB: | Routin | 05/31/2019 | | Results for this | | GLUCOSE | e | | | procedure are in the | | | | | | results section. | + +--------+ + + + | EXTERNAL LAB: | Routin | 05/31/2019 | | Results for this | | ALBUMIN | e | | | procedure are in the | | | | | | results section. | + +--------+ + + + | EXTERNAL LAB: | Routin | 05/31/2019 | | Results for this | | PHOSPHORUS | e | | | procedure are in the | | | | | | results section. | + +--------+ + + + | EXTERNAL LAB: | Routin | 05/31/2019 | | Results for this | | CALCIUM | e | | | procedure are in the | | | | | | results section. | + +--------+ + + + | EXTERNAL LAB: CARBON | Routin | 05/31/2019 | | Results for this | | DIOXIDE | e | | | procedure are in the | | | | | | results section. | + +--------+ + + + | EXTERNAL LAB: | Routin | 05/31/2019 | | Results for this | | CHLORIDE | e | | | procedure are in the | | | | | | results section. | + +--------+ + + + | EXTERNAL LAB: | Routin | 05/31/2019 | | Results for this | | POTASSIUM | e | | | procedure are in the | | | | | | results section. | + +--------+ + + + | EXTERNAL LAB: SODIUM | Routin | 05/31/2019 | | Results for this | | | e | | | procedure are in the | | | | | | results section. | + +--------+ + + + | EXTERNAL LAB: CBC | Routin | 05/31/2019 | | Results for this | | | e | | | procedure are in the | | | | | | results section. | + +--------+ + + + | EXTERNAL LAB: EGFR | Routin | 05/31/2019 | | Results for this | | | e | | | procedure are in the | | | | | | results section. | + +--------+ + + + | EXTERNAL LAB: | Routin | 05/31/2019 | | Results for this | | CREATININE | e | | | procedure are in the | | | | | | results section. | + +--------+ + + + documented in this encounter Results External Lab: DONTE (05/31/2019) + +--------+ + + + | Component | Value | Ref Range | Performed | Pathologist | | | | | At | Signature | + +--------+ + + + | BUN, | 96 (A) | 6 - 23 | EXTERNAL | | | External | | | LAB | | + +--------+ + + + + +---------+ + + | Performing | Address | City/State/Zipcode | Phone Number | | Organization | | | | + +---------+ + + | EXTERNAL LAB | | | | + +---------+ + + External Lab: Glucose (05/31/2019) + +---------+ + + + | Component | Value | Ref Range | Performed | Pathologist | | | | | At | Signature | + +---------+ + + + | Glucose, | 127 (A) | 70 - 100 | EXTERNAL | | | External | | | LAB | | + +---------+ + + + + +---------+ + + | Performing | Address | City/State/Zipcode | Phone Number | | Organization | | | | + +---------+ + + | EXTERNAL LAB | | | | + +---------+ + + External Lab: Albumin (05/31/2019) + +-------+ + + + | Component | Value | Ref Range | Performed | Pathologist | | | | | At | Signature | + +-------+ + + + | Albumin, | 4.2 | 3.5 - 5 | EXTERNAL | | | External | | | LAB | | + +-------+ + + + + +---------+ + + | Performing | Address | City/State/Zipcode | Phone Number | | Organization | | | | + +---------+ + + | EXTERNAL LAB | | | | + +---------+ + + External Lab: Phosphorus (05/31/2019) + +-------+ + + + | Component | Value | Ref Range | Performed | Pathologist | | | | | At | Signature | + +-------+ + + + | Phosphorus, | 4.9 | 2.5 - 5 | EXTERNAL | | | External | | | LAB | | + +-------+ + + + + +---------+ + + | Performing | Address | City/State/Zipcode | Phone Number | | Organization | | | | + +---------+ + + | EXTERNAL LAB | | | | + +---------+ + + External Lab: Calcium (05/31/2019) + +-------+ + + + | Component | Value | Ref Range | Performed | Pathologist | | | | | At | Signature | + +-------+ + + + | Calcium, | 9.3 | 8.5 - 10.3 | EXTERNAL | | | External | | | LAB | | + +-------+ + + + + +---------+ + + | Performing | Address | City/State/Zipcode | Phone Number | | Organization | | | | + +---------+ + + | EXTERNAL LAB | | | | + +---------+ + + External Lab: Carbon Dioxide (05/31/2019) + +--------+ + + + | Component | Value | Ref Range | Performed | Pathologist | | | | | At | Signature | + +--------+ + + + | Carbon | 33 (A) | 19 - 31 | EXTERNAL | | | Dioxide, | | | LAB | | | External | | | | | + +--------+ + + + + +---------+ + + | Performing | Address | City/State/Zipcode | Phone Number | | Organization | | | | + +---------+ + + | EXTERNAL LAB | | | | + +---------+ + + External Lab: Chloride (05/31/2019) + +--------+ + + + | Component | Value | Ref Range | Performed | Pathologist | | | | | At | Signature | + +--------+ + + + | Chloride, | 90 (A) | 95 - 112 | EXTERNAL | | | External | | | LAB | | + +--------+ + + + + +---------+ + + | Performing | Address | City/State/Zipcode | Phone Number | | Organization | | | | + +---------+ + + | EXTERNAL LAB | | | | + +---------+ + + External Lab: Potassium (05/31/2019) + +---------+ + + + | Component | Value | Ref Range | Performed | Pathologist | | | | | At | Signature | + +---------+ + + + | Potassium, | 3.3 (A) | 3.6 - 5.1 | EXTERNAL | | | External | | | LAB | | + +---------+ + + + + +---------+ + + | Performing | Address | City/State/Zipcode | Phone Number | | Organization | | | | + +---------+ + + | EXTERNAL LAB | | | | + +---------+ + + External Lab: Sodium (05/31/2019) + +-------+ + + + | Component | Value | Ref Range | Performed | Pathologist | | | | | At | Signature | + +-------+ + + + | Sodium, | 136 | 132 - 143 | EXTERNAL | | | External | | | LAB | | + +-------+ + + + + +---------+ + + | Performing | Address | City/State/Zipcode | Phone Number | | Organization | | | | + +---------+ + + | EXTERNAL LAB | | | | + +---------+ + + External Lab: CBC (05/31/2019) + + + + + + | Component | Value | Ref Range | Performed | Pathologist | | | | | At | Signature | + + + + + + | WBC, | 6.6 | 4.5 - 11 | EXTERNAL | | | External | | | LAB | | + + + + + + | HGB, | 12.6 (A) | 13.5 - 18 | EXTERNAL | | | External | | | LAB | | + + + + + + | HCT, | 37.9 (A) | 41 - 50 | EXTERNAL | | | External | | | LAB | | + + + + + + | PLT, | 158 | 140 - 440 | EXTERNAL | | | External | | | LAB | | + + + + + + | RBC, | 4.11 (A) | 4.3 - 5.7 | EXTERNAL | | | External | | | LAB | | + + + + + + | MCV, | 92 | 81 - 99 | EXTERNAL | | | External | | | LAB | | + + + + + + | RDW, | 19 (A) | 10.5 - 15 | EXTERNAL | | | External | | | LAB | | + + + + + + + +---------+ + + | Performing | Address | City/State/Zipcode | Phone Number | | Organization | | | | + +---------+ + + | EXTERNAL LAB | | | | + +---------+ + + External Lab: eGFR (05/31/2019) + +-------+ + + + | Component | Value | Ref Range | Performed | Pathologist | | | | | At | Signature | + +-------+ + + + | eGFR, | 21 | | EXTERNAL | | | External | [...] + +---------+ + + External Lab: Creatinine (05/31/2019) + +-------+ + + + | Component | Value | Ref Range | Performed | Pathologist | | | | | At | Signature | + +-------+ + + + | Creatinine, | 3 (A) | 0.7 - 1.25 | EXTERNAL [...]
--- OUTSIDE RECORDS SUMMARY | ~2020-03-04 | XMS | Encounter Summary ---
Demographics + + + | Address | [address] | | | [place] [address] | + + + | Home Phone [...] [place] | | | | | [address] | | + + + + + Care Team Providers + +------+ + | Care Crossword Puzzle Maker Name | Role | Phone | + [...] Description | +--------+--------+ + + + | 06/18/ | Refill | [facility] [place] | Jenny, | Medication Refill | | 2017 | | CARDIOLOGY [address] | [address] | | | | | [place], | [place], | | | | | [place] [address] | [place] [address] | | | | | [phone] | [phone] | | | | | | | [...] | | 2019 | Visit | | [address] | | | | | | [address] | | | | | | [address] | | | | | | [address] | | | | | | | | +--------+ + + + + | 04/16/ | Office | Cardiology | Alin Anderson | | | 2019 | Visit | | MD [address] | | | | | | [address] | | | | | | [place] [address] | | | | | | [phone] | | | | | | | [...] [place] | | | | | | [address] | | | | | | | | +--------+ + + + + documented as of this encounter Visit Diagnoses Not on filedocumented in this encounter"
--- OUTSIDE RECORDS SUMMARY | ~2020-03-04 | XMS | Encounter Summary ---
Demographics + + + | Address | [address] | | | [place] [address] | + + + | Home Phone | | + + + | Preferred Language | Unknown | + + + | Marital Status | | + + + | Lutheran Affiliation | Unknown | + + + | Race | Unknown | + + + | Ethnic Group | Unknown | + + + Author + + + | Author | [facility] | | | and [place] | + + + | Organization | [facility] | | | and [place] | + + + | Address | Unknown | + + + | Phone | Unavailable | + + + Support + + + + + | Name | Relationship | Address | Phone | + + + + + | [place] [address] | ECON | [place], [place] | | | | | [address] | | + + + + + Care Team Providers + +------+ + | Care Setter Ju[employer]aging Machines Name | Role | Phone | + [...] | | | | | involving | [address] | [place] | | | | | [place] | [address] | [place] | | | | | coronary | [address] | [address] | | | | | artery of | Phone: | Phone: | | | | | [place] heart | [phone] | [phone] | | | | | without | Fax: | Fax: | | | | | angina | [phone] | [phone] | | | | | pectoris | | | +--------+ + + + + + Encounter Details +--------+---------+ + + + | Date | Type | Department | Care Team | Description | +--------+---------+ + + + | 08/26/ | Office | [facility] | RahulyazshirazLindaangusleo, | Acute anterior wall | | 2018 | Visit | [facility] | MD [address] | ID ([facility]) (Primary | | | | REHABILITATION [address] | [address], | Dx) | | | | [address] [place] | [place] [address] | | | | | [place] [address] | [phone] | | | | | [phone] | | | +--------+---------+ + + + [...] as of this encounter Progress Cheri Mchugh, ASSOCIATE DIRECTOR FINANCIAL AID - 08/26/2018 10:00 AM HungFletcher Alex came into rehab stat ing he was not feeling well and that he was feeling some dizzy. He was hooked up to the card Catav[employer] monitor and B/P was 60/44. Patient was given an 5.5 ml of V8 juice. After 15 min B/P 74/ 50, patient was given two 8 oz glasses of H2o. After 20 min B/P was taken again and B/P 68/4 4. Patient was taken to ER for more evaluation. documented in this encounter Plan of Treatment +--------+ + + + + | Date | Type | Specialty | Care Team | Description | +--------+ + + + + | 03/12/ | Office | Nephrology | Litzy, | | | 2019 | Visit | | [address] [address] | | | | | | [address] | | | | | | [address] [facility] [place] | | | | | | [id number] | | | | | | | | +--------+ + + + + | 04/16/ | Office | Cardiology | Alin Anderson | | 2019 | Visit | | MD [address] | | | | | | [address] | | | | | | [place] [address] | | | | | | [phone] | | | | | | | | +--------+ + + + + | 04/16/ | Procedure | Cardiology | | | | 2019 | visit | | | | +--------+ + + + + | 04/25/ | Office | Cardiology | Rocio Pearl, | | | 2019 | Visit | | MD [address] | | | | | | [address] [place], [place] | | | | | | [address] | | | | | | | | +--------+ + + + + documented as of this encounter Visit Diagnoses + + | Diagnosis | + + | Acute anterior wall ID (HCC) - Primary Acute myocardial infarction of other anterior | | wall, episode of care unspecified | + + documented in this encounter"
--- OUTSIDE RECORDS SUMMARY | ~2020-03-04 | XMS | Encounter Summary ---
Demographics + + + | Address | [address] | | | [place] [address] | + + + | Home Phone | | + + + | Preferred Language | Unknown | + + + | Marital Status | | + + + | Denominational Affiliation | Unknown | + + + | Race | Unknown | + + + | Ethnic Group | Unknown | + + + Author + + + | Author | [facility] | | | and [place] | + + + | Organization | [facility] | | | and [place] | + + + | Address | Unknown | + + + | Phone | Unavailable | + + + Support + + + + + | Name | Relationship | Address | Phone | + + + + + | [place] | [place] | [place] | | | | | [address] | | + + + + + Care Team Providers + +------+ + | Care Puppy Sitter Name | Role | Phone | + [...] | | | Services | Medicine | Sleep | MD Sofie | Center [address] | | | Required | | apnea, | [address] | [place] | | | | | unspecified | [address] [place] | [place], | | | | | type | [place], [place] | [place] [address] | | | | | Procedures | [id number] | Phone: | | | | | [place] [facility] | Phone: | [phone] | | | | | 6/>YRS SLEEP | [phone] | Fax: | | | | | W/CPAP 4/> | Fax: | [phone] | | | | | ADDL KATERINA | [phone] | | | | | | ATTND [place] | | | | | | | POLYSOM | | | | | | | 6/>YRS SLEEP | | | | | | | 4/> ADDL | | | | | | | KATERINA ATTND | | | | | | | S/N (DOS | | | | | | | 03/22/18) | | | +--------+ + + + + + Reason for Visit +---------+ + | Reason | Comments | +---------+ + | Consult | | +---------+ + | Snoring | | +---------+ + Evaluate & Treat (Routine) +--------+ + + + + + | Status | Reason | Specialty | Diagnoses / | Referred By | Referred To | | | | | Procedures | Contact | Contact | +--------+ + + + + + | Closed | Specialty | Sleep | Diagnoses | | [facility] | | | Services | Medicine | [place] | [place], | [facility] | | | Required | | (obstructive | Hansa, SUPER[employer] | Disorder [address] | | | | | sleep | [address] | [address] [place] | | | | | apnea) | [place] | [place], | | | | | | [place], | [place] [address] | | | | | | [place] | Phone: | | | | | | [address] | [phone] | | | | | | Phone: | Fax: | | | | | | [phone] | [phone] | | | | | | Fax: | | | | | | | [phone] | | +--------+ + + + + + Encounter Details +--------+---------+ + + + | Date | Type | Department | Care Team | Description | +--------+---------+ + + + | 02/08/ | Office | [facility] | Sofie Sneed MD | Sleep apnea, | | 2018 | Visit | SLEEP DISORDER [address] | [address] | unspecified type | | | | [place] | [place] | (Primary Dx) | | | | [place] [address] | [address] | | | | | [phone] | | | +--------+---------+ + + + [...] + + + | Blood Pressure | 130/70 | 02/08/2018 7:57 AM | | | | | PDT | | + + + + + | Pulse | 65 | 02/08/2018 7:57 AM | | | | | PDT | | + + + + + | Temperature | - | - | | + + + + + | Respiratory Rate | 16 | 02/08/2018 7:57 AM | | | | | PDT | | + + + + + | Oxygen Saturation | 95% | 02/08/2018 7:57 AM | | | | | PDT | | + + + + + | Inhaled Oxygen | - | - | | | Concentration | | | | + + + + + | Weight | 96.3 kg (212 lb 4.9 | 02/08/2018 7:57 AM | | | | oz) | PDT | | + + + + + | Height | 175.3 cm (5' 9") | 02/08/2018 7:57 AM | | | | | PDT | | + + + + + | Body Mass Index | 31.35 | 02/08/2018 7:57 AM | | | | | PDT | | + + + + + documented in this encounter Patient Instructions Patient Instructions Sofie Sneed MD - 02/08/2018 8:57 AM PDTFormatting of this note robyn ht be different from the original. Please: 1- Schedule your sleep study. An appointment will be made a few days after the sleep study so that we can discuss the results of the sleep study with you to determine how to best help you with your sleep issues. If you can't come to the sleep center on the night of your scheduled sleep study, please no tify us ( ). 2- Review the following sleep hygiene tips: - Awaken at nearly the same time ever day (less than 2 hours difference between work/school days and off/weekend days). Don't sleep in. - Obtain as much bright light as possible during your desired waking hours. - Minimize caffeine (coffee, tea, energy drinks, soft drinks, etc.) and limit to the hours immediately after awakening. - Eliminate or minimize smoking and alcohol consumption, especially near bedtime. - Minimize or eliminate napping (unless you are a good sleeper at night and you are really sleepy during the day). - Darken your environment an hour or two before bedtime. - Consider "unwinding" and "closing" your day about an hour before your anticipated bedtime . - Go to bed only when you are sleepy and no earlier than 9 hours before your anticipated wa ke time. - Good sleepers enjoy sleeping and know that not everyone sleeps well every night. The occa sional night of poor sleep happens to everyone and isn't something to worry about. It was very nice meeting you today and thank you for letting me take care of you. What Are Snoring and Obstructive Sleep Apnea? If you ve ever had a stuffed-up nose, you know the feeling of trying to breathe through a very narrow passageway. This is what happens in your throat when you snore. While you sleep , structures in your throat partly block your air passage. This makes the passage narrow and hard to breathe through. In some cases the entire passage may become blocked so you can t breathe at all. Then you haveobstructivesleep apnea. Snoring Obstructive sleep apnea Snoring If your throat structures are too large or the muscles relax too much during sleep, the air passage may be partly blocked for a while (temporarily). But over time the air gets past. A s air from the nose or mouth passes around this blockage, the throat structures vibrate. Thi s causes the familiar sound of snoring. This sound can be loud. Snorers may wake up others, or even themselves, during the night. Snoring gets worse as more and more of the air passage is blocked. Obstructive sleep apnea If the structurespartly orcompletely block the throat, air can t flow to the lungs at all. This is calledhypopnea (decreased breathing) orapnea (meaning no breathing ). The lungs aren t getting fresh air. So the brain tells the body to wake up just enough to tighten the muscles and unblock the air passage. With a loud gasp, breathing begins again. This process may be repeated over and over again during the night. This can make your sleep fragmentedwithlighter stagesof sleep. You won t remember waking up many times during the night. But due tolighter sleepyou will feel tired the next day. The lack of sleep a nd fresh air can also strain your lungs, heart, and other organs. This leads to problems suc h as high blood pressure, heart attack, or stroke. Problems in the nose and jaw Problems in the structure of the nose may block breathing. A crooked (deviated) septum or s wollen turbinates can make snoring worse or lead to apnea. Also, a receding jaw may make the tongue sit too far back. Then it s more likely to block the airway when you re asleep. Date Last Reviewed: 04/07/201719993116-0796 [employer]. [address] [place] [address], [place] [address]. All righ ts reserved. This information is not intended as a substitute for professional medical care. Always follow your healthcare professional's instructions. Continuous Positive Air Pressure (CPAP) A mask over the nose gently directs air into the throat to keep the airway open. Continuous positive air pressure (CPAP)uses gentle air pressure to hold the airway open. CPAP is often the most effective treatment for sleep apnea and severe snoring. It works very well for many people. But keep in mind that it can take several adjustments before the setu p is right for you. How CPAP works The CPAP machine is asmall portable pump that sits beside the bed. The pumpsends air through a hose, which is held over your nose alone, or nose and mouthby a mask.Mild air pressureis gently pushed through your airway. The air pressure nudges sagging tissues asid e. This widens the airway so you can breathe better. CPAP may be combined with other kinds o f therapy for sleep apnea. Types of air pressure treatments There are different types of CPAP. Your doctor or CPAP domestic technician will help you decide whic h type is best for you: Basic CPAPkeeps the pressure constant all night long. A bilevel device(BiPAP)providesmore pressure when you breathe in and less when you breathe out.A BiPAP machine also may be set to provide automatic breaths to maintain milton thing if you stop breathing while sleeping. An autoCPAP deviceautomatically adjusts pressure throughout the night and in response to changes such as body position, sleep stage, and snoring. Date Last Reviewed: 04/07/201719996822-0945 [employer] [address] [place] [address]. All righ ts reserved. This information is not intended as a substitute for professional medical care. Always follow your healthcare professional's instructions. documented in this encounter Progress Notes Sofie Sneed MD - 02/08/2018 8:00 AM PDT ID/CC: We are asked to Nuzhat Will referred for consultation from [facility] evaluation of sleep apnea. Bob Will is a 62 y.o. year male old with history of coronary artery disease pos t recent anterior wall AL, post PTCA and stents on 03/15/17, cardiac shock, recent status pos t stents, cardiomyopathy, atrial flutter, GERD, chronic knee pain, And neuropathy?, shameka luong for evaluation of sleep apnea. He is accompanied with his . Mr. Will had a massive heart attack followed by cardiogenic shock and atrial flutter i n March 2017. He has had stent and defibrillator placements. They say they have been told h amy also has had pacemaker placement. He comes in today as he was noticed to have symptoms and risk factors for sleep apnea. He has been getting 5-6 hours of sleep per night for several years. He usually does not gonzales ve difficulty falling asleep, but wakes up several times at night. He wakes up 3-4 times fo r urination. This has been going on for years and before his heart attack in March 2017. He has been recommended to cut back on his liquid intake because of his heart failure. mark was recently started on Lasix. He goes to bed at 9:30 PM, falls asleep relatively quickly. Wakes up several times at nigh t and sometimes has difficulty falling back asleep. He eventually wakes up between 6:30 and 7 AM and usually feels tired. He occasionally naps. He sleeps flat bed and 2 pillows. He says it's more comfortable but cannot say why exactly . He has snored for at least the past 13 years that his and him have known each other. They are not sure about apneic episodes. He denies awakening with gasping or choking. He used to have awakening with shortness of breath but not recently. He feels that sometimes he does not get enough air and it usually happens when he is awake and could be during the d ay. He even talked to his primary care doctor about getting supplemental oxygen. Occasiona lly he wakes up with headaches and he has frequent morning dry mouth, though some of it is b ecause of his medications. He denies heartburn interfering with sleep but he takes both marsh toprazole and ranitidine. He has some nasal congestion. He says when he was at [facility] for his heart, and he was told that he probably has had some mi ld stroke. Denies restless legs. Since his heart attack he has had some "fuzzy" feeling in his legs. Denies burning sensation or pins and needles sensation. He was prescribed gabapentin. Has had chronic neck arthritis for years and he takes tramadol regularly. He takes hydroco done as needed and tries not to take it regularly ? [place] Sleepiness Scale: 19 out of 24 ( score >11 clinnically significant for sleepiness ). ? Patient denies: drowsy driving. ? - Insomnia Severity Index Score: 14 out of 28, suggesting subthreshold insomnia. 0-7 no clinically significant. 8-14 subthreshold insomnia 15-21 moderate insomnia 22-28 severe insomnia ADDITIONAL DATA: ? Poole Depression Inventory: 7, consistent with minimal depression ? Poole Anxiety Inventory: 18, consistent with moderate anxiety ? SF-36v2: Significant decline in most subscales but SF. PAST MEDICAL HISTORY Past Medical History: Diagnosis Date Acute anterior wall AL (HCC) 04/03/2017 Angiography and stent 03/15/2017 successful PCI with placement of 3.0X23 stent in the distal LM and ostial LAD reducing a 100% stenotic lesion to 0% residual stenosis, successful PCI w ith placement of 2.5X18 stent in the ostial LCx reducing a 90% stenotic lesion to 0% resdual stenosis. CAD (coronary artery disease) 04/06/2017 Successful PCI with placement of 3.0X23 stent in the distal LM and ostial LAD reducing a 1 00% stenotic lesion to 0% residual stenosis, successful PCI with placement of 2.5X18 stent i n the ostial LCx reducing a 90% stenotic lesion to 0% residual stenosis on 03/15/2017 by Monse Ross MD. PAST SURGICAL HISTORY Past Surgical History: Procedure Laterality Date CARDIAC CATHERIZATION N/A 03/15/2017 Procedure: CV Cor Angio; Surgeon: Monse Ross MD; Location: [facility] CV LAB CARDIAC CATHERIZATION N/A 10/03/2017 Procedure: CV Cor Angio; Surgeon: Delmer Dai MD; Location: [facility] CV LAB ELBOW SURGERY Left GALLBLADDER SURGERY NASAL SEPTUM SURGERY UPPER GASTROINTESTINAL ENDOSCOPY N/A 10/05/2017 Procedure: EGD; Surgeon: Terry Weir MD; Location: [facility] MEDICAL PROCEDURE UNIT ALLERGIES No Known Allergies CURRENT MEDICATIONS Prior to Admission medications Medication Sig Start Date End Date Taking? Authorizing Provider aspirin 81 MG tablet Take 81 mg by mouth Daily. Yes Historical Provider, atorvaSTATin (LIPITOR) 80 MG tablet Take 1 tablet by mouth nightly. 11/10/17 Yes ADARSH Kendrick Cholecalciferol (VITAMIN D-3) 24371 units CAPS Take by mouth Once a week. Yes Historical Provider, clopidogrel (PLAVIX) 75 mg tablet Take 1 tablet by mouth Daily. 06/23/17 Yes ADARSH العراقي furosemide (LASIX) 20 mg tablet Take 1 tablet by mouth Daily. 01/13/18 Yes ADARSH Stevens gabapentin (NEURONTIN) 300 mg capsule Take 300 mg by mouth 3 times daily. Yes Historical Provider, HYDROcodone-acetaminophen (NORCO) 5-325 mg per tablet Take 1-2 tablets by mouth every 4 rene rs as needed for Pain (Pain). 10/09/17 Yes Destinee Trejo MD lisinopril (PRINIVIL, ZESTRIL) 5 mg tablet 2 times daily. 01/07/18 Yes Historical MD Deep metFORMIN (GLUCOPHAGE) 500 mg tablet Take 500 mg by mouth 2 times daily (with breakfast & d inner). Yes Historical ProviderMD metoprolol succinate (TOPROL-XL) 25 mg 24 hr tablet Take 1 tablet by mouth Daily. 10/19/17 Yes ADARSH Stevens nitroglycerin (NITROSTAT) 0.[address] 1 tablet under the tongue every 5 minutes as needed for Chest pain. 10/09/17 Yes Destinee Trejo MD pantoprazole (PROTONIX) 40 mg tablet Take 40 mg by mouth 2 times daily. Yes Historical Pr MD tanya raNITIdine (ZANTAC) 300 MG capsule Take 300 mg by mouth every evening. Yes Historical Pro MD kyaw traMADol (ULTRAM) 50 mg tablet Take 50 mg by mouth every 6 hours as needed. Yes Historfrancisco j Adame MD SOCIAL HISTORY - Lives with his . 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 . Shift work: no - ETOH: no - Smoking: He smoked for about 44 years and quit smoking on March 15, 2017. - Other substances: none - Exercise: Does some chores, and sometimes walks his dog or goes for short walks with his mom. He likes to have more physical activity but he feels he doesn't have enough energy. - Eating habits: He used to eat a lot of junk foods before his heart attack. Since then he 's been eating mostly homemade foods and tries to eat vegetables and salads regularly. Does not drink soda since then. FAMILY HISTORY No family history of sleep apnea. REVIEW OF SYSTEMS Constitutional: + fatigue ENT: + nasal congestion. Card: No exertional substernal chest heaviness, + SOB on exertion Resp: no cough GI: No nausea, vomiting, abdominal pain, diarrhea, or constipation, : + nocturia MS:+ neck pain Neuro: + headaches Psych: No depression, No overt anxiety Heme: + easy bruising PHYSICAL EXAMINATION BP 130/70 | Pulse 65 | Resp 16 | Ht 1.753 m (5' 9") | Wt 96.3 kg (212 lb 4.9 oz) | SpO 2 95% | BMI 31.35 kg/m , Neck Measurement: 17 in GEN: Well developed well nourished, pleasant, NAD HEENT: Sclerae anicteric. No ptosis. Oropharyngeal exam reveals Modified Mallampati grade3 airway with No tonsils. Tongue does not have scalloping. + few missing and filled teeth. Pa lara does not have a high arched palate. CV: RRR, no m/r/g RESP: CTAB, no w/r/r EXT: No clubbing/cyanosis. NEURO: A&Ox3, speech fluent. face symmetric, uvula/tongue midline. . Normal casual gait. PSYCH: Appropriate affect. LABS/IMAGING: cardiology note 01/13/18: "Transthoracic Echocardiogram 10/11/17 shows the left ventricular cavity size is normal , th e LV function is severely abnormal, left ventricular systolic thickening is segment ally abn ormal, visually estimated left ventricular ejection fraction is 30-35%, RV cavity size is normal, RV global systolic function is mildly reduced, there is mild dial ation of the as se nding aorta, compared to the most recent exam dated 03/30/17, the LVFF is similar." "Echocardiogram 11/24/2017 shows Mild left atrial dilatation, mild left ventricular dilatat ion with him mild to moderate eccentric left ventricular hypertrophy, there is a segmental w all motion abnormality with severe hypokinesis of the entire anterior and anteroseptal regio n, overall, left ventricular systolic function is moderately decreased, LVEF is 35-40%, mild mitral valve regurgitation, mild tricuspid valve regurgitation, borderline pulmonary hypert ension with a peak systolic pressure of 35-40 mmHg, pacemaker lead in the right ventricle, n ormal IVC with normal respiratory collapse". ASSESSMENT AND PLAN Sleep apnea unspecified: This patient has several symptoms and risk factors for obstructive sleep apnea. I discussed them, and the pathophysiology of Obstructive sleep apnea today, associated risks including heart attack and stroke with untreated severe sleep apnea, and as sociation between obstructive sleep apnea and hypertension, insulin resistance and diabetes, GERD, cardiac arrhythmias,headaches, and mood and memory problems. I also discussed cent ral sleep apnea which he is at higher risk for a because of his cardiomyopathy. discussed di agnosis via polysomnography / [id number] sleep testing. Today, I ordered a split-night p olysomnography. I also discussed treatment options for sleep apnea, including CPAP (tena goddard), weight loss, mandibular advancement device, and surgery, however, I informed him t hat he will likely need CPAP. Discussed that if he had complex sleep apnea, we would need t o perform a separate titration study.. . An appointment will be made a few days after the s leep study so that we can discuss the results of the sleep study with patient. Encouraged maintaining healthy eating habits. Discussed the importance of eating habits a nd diet, and that food is not just about calorie intake, and food is information and sonya reyes. Discussed that changing his diet since his heart attack, probably is one of the best thi ngs that he could done for his health overall. Hopefully he will be able to have more physi annie activity once his sleep improved. Thank you for the opportunity to participate in this patient's care. Portions of this chart may have been created with [employer] voice recognition software. Occasi onal wrong-word or sound-alike substitutions may have occurred due to the inherent canseco itations of voice recognition software. Please read the chart carefully and recognize, using context, where these substitutions have occurred. Dl Aguero [facility] l Chief Guard - 02/08/2018 8:00 AM PDTFormatting of this note might be different from the satish dowd. 02/08/18 0700 Poole Depression Inventory-II Depression Score 7 - Minimal depression Insomnia Severity Index Insomnia Severity Index 14 [place] Sleepiness Scale Sitting and reading 3 Watching TV 3 Sitting, inactive in a public place (e.g. a theatre or a meeting) 2 As a passenger in a car for an hour without a break 3 Lying down to rest in the afternoon when circumstances permit 3 Sitting and talking to someone 1 Sitting quietly after a lunch without alcohol 3 In a car, while stopped for a few minutes in traffic 1 Total score 19 SF-36v2 Score PF 28.83 RP 21.23 BP 42.24 GH 35.59 VT 34.77 SF 57.34 RE 31.8 MH 43.02 PCS 29.41 MCS 46.49 documented in this enco unter Plan of Treatment +--------+ + + + + | Date | Type | Specialty | Care Team | Description | +--------+ + + + + | 03/12/ | Office | Nephrology | Litzy, | | | 2019 | Visit | | ADARSH [address] | | | | | | [address] | | | | | | [address] [place] | | | | | | [address] | | | | | | | | +--------+ + + + + | 04/16/ | Office | Cardiology | Alin Anderson | | | 2019 | Visit | | MD [address] | | | | | | [address] | | | | | | [place] [address] | | | | | | [phone] | | | | | | | | +--------+ + + + + | 04/16/ | Procedure | Cardiology | | | | 2019 | visit | | | | +--------+ + + + + | 04/25/ | Office | Cardiology | Rocio Pearl, | | | 2019 | Visit | | [address] | | | | | | [facility] [facility] [place] | | | | | | [address] | | | | | | | | +--------+ + + + + + + +--------+ + + | Name | Type | Priori | Associated Diagnoses | Order Schedule | | | | ty | | | + + +--------+ + + | * [facility] - | Outpatient | Routin | Sleep apnea, | Ordered: 02/08/2018 | | AMB Referral | Referral | e | unspecified type | | + + +--------+ + + documented as of this encounter Visit Diagnoses + + | Diagnosis | + + | Sleep apnea, unspecified type - Primary | + + documented in this encounter
--- OUTSIDE RECORDS SUMMARY | ~2020-03-04 | XMS | Encounter Summary ---
Demographics + + + | Address | [address] | | | [place] [address] | + + + | Home Phone | | + + + | Preferred Language | Unknown | + + + | Marital Status | | + + + | Zoroastrianism Affiliation | Unknown | + + + [...] [place] | | | | | [address] | | + + + + + Care Team Providers + +------+ + | Care Software Engineering Analyst Name | Role | Phone | + [...] | | involving | [address] | [place] | | | | | sioux | [address] | [place], [place] | | | | | coronary | [address] | [address] | | | | | artery of | Phone: | Phone: | | | | | sioux heart | [phone] | [phone] | | | | | without | Fax: | Fax: | | | | | angina | [phone] | [phone] | | | | | pectoris | | | +--------+ + + + + + Encounter Details +--------+---------+ + + + | Date | Type | Department | Care Team | Description | +--------+---------+ + + + | 08/10/ | Office | [facility] | Randy Figueroa, | Coronary artery | | 2018 | Visit | MED CTR CARDIAC | [address] | disease, angina | | | | REHABILITATION [address] | [address] [place], | presence | | | | [address] [place] | [place] [address] | unspecified, | | | | [place] [address] | [phone] | unspecified vessel | | | | [phone] | | or lesion type, | | | | | | unspecified whether | | | | | | sioux or | | | | | | transplanted heart | | | | | | (Primary Dx); Post | | | | | | PTCA; PAD | | | | | | (peripheral artery | | | | | | disease) ([facility]) | +--------+---------+ + + + Social History [...] this encounter Progress Notes Gael Woo - 08/10/2018 10:00 AM PST [facility] CARDIAC REHABILITATION [address] [place] [address] Cardiac Rehab Date: 08/10/2018 Patient Information Patient Name: Bob Will Date of : 1955 Age: 62 y.o. Encounter Diagnoses Code Name Primary? I25.10 Coronary artery disease, angina presence unspecified, unspecified vessel or lesi on type, unspecified whether sioux or transplanted heart Yes Z98.61 Post PTCA I73.9 PAD (peripheral artery disease) ([facility]) Number of Visits Approved: 34 Taken Medications Today? Yes Any Changes in Medications? No Any Problems to Report? No Denies any adverse symptoms during exercise. Ventricular paced rhythm without ectopy. Pre O2: 95%, Ex O2: 95%. SBP with no change during exertion. Compliant with medications and therapeutic lifestyle changes. Continue monitored exercise. Any abnormal vital signs or rhythm strips will be reported in progress note. Electronically signed by: Gael Woo, 08/10/2018 14:15 Patient Name: Bob Will/: 1955/ ly signed by Gael Woo at 08/10/2018 2:16 PM PSTdocumented in this encounter Plan of Treatment +--------+ + + + + | Date | Type | Specialty | Care Team | Description | +--------+ + + + + | 03/12/ | Office | Nephrology | Litzy, | | | 2019 | Visit | | [address] | | | | | | [address] | | | | | | [address] | | | | | | [address] | | | | | | | | +--------+ + + + + | 04/16/ | Office | Cardiology | Alin Anderson | | | 2019 | Visit | | MD Cheryl [address] | | | | | | [address] | | | | | | [place] [address] | | | | | | [phone] | | | | | | | [...] [place] | | | | | | [address] | | | | | | | | +--------+ + + + + documented as of this encounter Visit Diagnoses + + | Diagnosis | + + | Coronary artery disease, angina presence unspecified, unspecified vessel or lesion | | type, unspecified whether sioux or transplanted heart - Primary | + + | Post PTCA Postsurgical percutaneous transluminal coronary angioplasty status | + + | PAD (peripheral artery disease) (HCC) Unspecified disorders of arteries and | | arterioles | + + documented in this encounter"
--- OUTSIDE RECORDS SUMMARY | ~2020-03-04 | XMS | Encounter Summary ---
Demographics + + + | Address | [address] | | | [place] [address] | + + + | Home Phone | | + + + | Preferred Language | Unknown | + + + | Marital Status | | + + + | Rastafarian Affiliation | Unknown | + + + | Race | Unknown | + + + | Ethnic Group | Unknown | + + + Author + + + | Author | [facility] | | | and [place] | + + + | Organization | [facility] | | | [facility] [place] | + + + | Address | Unknown | + + + | Phone | Unavailable | + + + Support + + + + + | Name | Relationship | Address | Phone | + + + + + | [place] Will | E[place] | [place], [place] | | | | | [address] | | + + + + + Care Team Providers + +------+ + | Care Professor Of Early Childhood Education Name | Role | Phone | [...] | | involving | [address] | [place] | | | | | [place] | [place] | [place] | | | | | coronary | [address] | [address] | | | | | artery of | Phone: | Phone: | | | | | tolowa dee-ni' heart | [phone] | [phone] | | | | | without | Fax: | Fax: | | | | | angina | [phone] | [phone] | | | | | pectoris | | | +--------+ + + + + + Encounter Details +--------+---------+ + + + | Date | Type | Department | Care Team | Description | +--------+---------+ + + + | 08/17/ | Office | [facility] | RahulyazshirazRandy, | Acute on chronic | | 2018 | Visit | MED CTR CARDIAC | MD [address] | systolic congestive | | | | REHABILITATION [address] | [address], | heart failure (HCC) | | | | [address] [place] | [place] [address] | (Primary Dx) | | | | [place] [address] | [phone] | | | | | [phone] | | | +--------+---------+ + + + [...] documented as of this encounter Progress Cheri Mchugh RRT - 08/17/2018 10:00 AM PST [facility] C[facility]ATION [address] [place] [address] Cardiac Rehab Date: 08/17/2018 Patient Information Patient Name: Bob Will Date of : 1955 Age: 62 y.o. Encounter Diagnoses Code Name Primary? I50.23 Acute on chronic systolic congestive heart failure (HCC) Yes Number of Visits Approved: 34 Taken Medications Today? Yes Any Changes in Medications? No Any Problems to Report? No Denies any adverse symptoms during exercise. Ventricular paced rhythm without ectopy. Pre O2: 93%, Ex O2: 95%. SBP with no change during exertion. Compliant with medications and therapeutic lifestyle changes. Continue monitored exercise. Any abnormal vital signs or rhythm strips will be reported in progress note. Electronically signed by: Cheri Harvey RRT, 08/17/2018 12:00 Patient Name: Bob Will/: 1955/ ly signed by Cheri Harvey RRT at 08/17/2018 12:00 PM PSTdocumented in this en counter Plan of Treatment +--------+ + + + + | Date | Type | Specialty | Care Team | Description | +--------+ + + + + | 03/12/ | Office | Nephrology | Litzy, | | | 2019 | Visit | | [address] | | | | | | [address] [facility] | | | | | | [address] | | | | | | [address] | | | | | | | | +--------+ + + + + | 04/16/ | Office | Cardiology | Monica Alin | | | 2019 | Visit | | MD Cheryl [address] | | | | | | [address] | | | | | | [place] [address] | | | | | | [phone] | | | | | | | | +--------+ + + + + | 04/16/ | Procedure | Cardiology | | | | 2019 | visit | | | | +--------+ + + + + | 04/25/ | Office | Cardiology | Dae Rocio, | | | 2019 | Visit | | MD [address] | | | | | | [place] | | | | | | [address] | | | | | | | | +--------+ + + + + documented as of this encounter Visit Diagnoses + + | Diagnosis | + + | Acute on chronic systolic congestive heart failure (HCC) - Primary Acute on chronic | | systolic heart failure | + + documented in this encounter"
--- OUTSIDE RECORDS SUMMARY | ~2020-03-04 | XMS | Encounter Summary ---
Demographics + + + | Address | [address] | | | [place] [address] | + + + | Home Phone | | + + + | Preferred Language | Unknown | + + + | Marital Status | | + + + | Church Affiliation | NRP | + + + | Race | White | + + + | Ethnic Group | Not or | + + + Author + + + | Author | [facility] | + + + | Organization | [facility] | + + + | Address | Unknown | + + + | Phone | Unavailable | + + + Support + + + + + | Name | Relationship | Address | Phone | + + + + + | Venice Mckeon | ECON | [address] | | | | | [place] [address] | | + + + + + Care Team Providers + +------+ + | Care Weigher And Charger Name | Role | Phone | + [...] | | | | | involving | [place], [place] | | | | | | left main | [address] | | | | | | coronary | Phone: | | | | | | artery (HCC) | [phone] | | | | | | Procedures | Fax: | | | | | | | [phone] | | | | | | OCCUPATIONAL [...] | | | | elevation | [address] [facility] | | | | | | myocardial | [address] | | | | | | infarction | Rd | | | | | | involving | [place], [place] | | | | | | left main | [address] | | | | | | coronary | Phone: | | | | | | artery (HCC) | [phone] | | | | | | Procedures | Fax: | | | | | | PHYSICAL | [phone] | | | | | | THERAPY [...] REHAB - [facility] | [address] | [address] | | | | | | [address] | [place], | | | | | | [place], [place] | [place] [address] | | | | | | [address] | Phone: | | | | | | Phone: | [phone] | | | | | | [phone] | Fax: | | | | | | Fax: | [phone] | | | | | | [phone] | | +--------+--------+ + + + + [...] + + | 03/15/ | Hospital | [facility] [address] | Mellisa Haji, | | | 2017 - | Encounter | [place] [id number] | [address] | | | | | [facility] | [facility] | | | 04/02/ | | [place], [place] | [place], [place] | | | 2016 | | [address] | [address] | | | | | [phone] | [phone] | | | | | | | | | | | | Rolly Reeves, | | | | | | [address] | | | | | | [place], [place] | | | | | | [address] | | | | | | [phone] | | | | | | | | | | | | Terry Ochoa MD | | | | | | Monika Cooper, | | | | | | Rehana Downey MD,MPH [address] | | | | | | [address] [facility] | | | | | | Rd [place], [place] | | | | | | [address] | | | | | | [phone] | | | | | | | | | | | | Ariana Bose, | | | | | | DO [address] | | | | | | [facility] | | | | | | [place], [place] | | | | | | [address] | | | | | | [phone] | | | | | | | | | | | | Aria Rojas MD | | | | | | [address] | | | | | | Tabitha [place], | | | | | | [place] [address] | | | | | | [phone] | | | | | | | [...] 2:26 PM PDT CLINICAL HOSPITALIST DISCHARGE SUMMARY [facility] Discharging Provider: Aria Rojas MD Discharging Attending [...] follow up ludmila miller with a local residential service technician in [place]. #Acute cardiogenic shock in the setting ofSTEMI [...] 44 to 32 during first day at [facility] , with addition decline to 24 the [...] (noted on o utside records). Patient on Miracle 10/325 q8 as outpatient. Was receiving scheduled [...] then take 7.5 mg (one and one-h nursing home tablets) daily starting 04/03/2017 Indications: JAVON thrombus, [...] Selected? Address Phone Number Fax Number [facility] Yes [address] [place] [address] Medina Roger RN 04/02/2017 11:31 Medina Roger RN, 04/02/2017 11:28 AM: Spoke with Latricia, 7 day auth # [id number] has been provided. Contacted Tanisha at facility , arranging anticipated medicaid transport by stretcher at 2 pm today. Spoke with patient and souse concerning dc; they are both in agreement. Medina Roger, RN, 04/02/2017 9:20 AM: Contacted Latriciabettina Landry [phone] referencing auth# for SNF placement. Medina Roger RN, 04/01/2017 11:42 AM: Spoke with Malathi [phone], at facility admissions. Patient is accepted to facility. 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 F&MS working with patient and family to add Medicaid ser vices to benefits. When added patient will have travel benefit. CM contacted Shahab Holman re [employer] training. Tamia Van, RN, 03/30/2017 1:21 PM: Received VM from Emily Terrell CM with [facility] to send referral to this location . Referral made, awaiting response. Follow Up: Schedule the following appointment(s) when you get home Follow up with [facility] . Specialties: Shelter Facility, Intermediate Care Facility Contact information [address] [place] [address] Follow up with LAUREN CHESTER MD. Go on 04/07/2017. Specialty: Cardiology Why: at 8:30 AM to establish Cardiology follow up Contact information [facility] [address] [address] Aria Rojas MD Division of Hospital Medicine [facility] [place] I spent 60 minutes on discharge activities on the day of discharge, including counseling of the patient and his regarding his discharge plan and in coordination of care on the il rd with nursing, pharmacy, and Heart Failure.Electronically [...] pain. | | | | | | pain | Indications: Pain | | | | [...] (or 3 results): Recent Labs 03/30/17 0030 03/30/17 2036 03/31/17 0345 04/01/17 0343 NA -- < [...] old male with a history of tobacco use, prediabetes, and ch ronic pain who was transferred to [facility] on 03/15 s/p STEMI with cardiogenic shock requiring IAB P and ECMO. He was transferred out to the [facility] on 03/25 for ongoing medical stabilization and optimization, with course complicated by repeat STEMI code overnight on 03/29 that did not r equire further intervention. Cardiogenic shock following anterior STEMI [...] will need Life Vest follow up with residential service technician in [place] on discharge - appr eciate cardiology assistance [...] hematoma, but possibly some candidal infection/intertrigo. On Miracle 10/325 Q8H as an outp atient. -Continue nystatin powder and lidocaine cream PRN -Oxycodone as above -Cont APAP 1000 mg TID -Nursing will request wound care reassess left groin wound to determine if more frequent dr essing changes may be beneficial Left atrial thrombus [...] 44 to 32 during first day at [facility], with addition decline to 24 th e [...] Aria Rojas MD Division of Hospital Medicine [facility] Pager [phone] I spent 36 minutes on the patient [...] motion abnormalities remain. Assessment and plan: Ron Mckoen is a 61 year old male with a history of tobacco use, prediabetes, and ch ronic pain who was transferred to [facility] on 03/15 s/p STEMI with cardiogenic shock requiring IAB P and ECMO. He was transferred out to the [facility] on 03/25 for ongoing medical stabilization and optimization, with course complicated by repeat STEMI code overnight on 03/29 that did not r equire further intervention. Cardiogenic shock following anterior STEMI [...] will need Life Vest follow up with residential service technician in [place] on discharge - appr iate cardiology assistance [...] hematoma, but possibly some candidal infection/interrigo. On Miracle Q8H as an outpa tient. -Continue nystatin [...] discharge. -CM looking for skilled placement in [place] near patient's home; appreciate assistance At risk for malnutrition Very little PO intake but reportedly improving. Previously had dobhoff feeding tube in the CVICU.Nutrition assistance appreciated. -Calorie count ongoing -Encouraging PO intake Normocytic anemia Hct dropped abruptly from 44 to 32 during first day at [facility], with addition decline to 24 th e [...] Aria Rojas MD Division of Hospital Medicine [facility] [place] Pager [phone] I spent 36 minutes on the patient encounter today, >50% in counseling of the patient's on the above plan of care and in coordination of care on the a[facility]endi with nursing and Heart Fa ilure. Ariana Ivy DO - 03/30/2017 5:49 PM PDT CLINICAL HOSPITALIST SERVICE PROGRESS NOTE PATIENT'S NAME/MRN: Ron Mckeon/[id number] HOSPITAL DAY: #15 24-HOUR EVENTS & SUBJECTIVE: -patient complained of typical anginal chest pain and had STEMI code last night, anterior S T elevation on serial EKGs, given 325mg ASA, started on heparin drip (had been turned off fo r JAVON thrombus yesterday afternoon with warfarin therapeutic), patient went to the laborer yard -on angiography, interventionalists noted "patent stent traversing [...] DAILY, Jeet Ramírez MD, 40 mg at 931 bisacodyl (DULCOLAX) suppository 10 mg, 10 mg, rectal, DAILY PRN, Gaurav Hobbs PA-C cholecalciferol (Vitamin D3) (VITAMIN D-3) tablet 1,000 Units, 1,000 Units, oral, DAILY, Amol Alvarado MD, 1,000 Units at 03/30/17931 clopidogrel (PLAVIX) tablet 75 mg, 75 mg, oral, DAILY, Jeet Ramírez MD, 75 mg at 03/30 dextrose 50 % in water IV 25 mL, 25 mL, intravenous, PRN, Jose Ramon Alvarado MD famotidine (PEPCID) tablet 20 mg, 20 mg, oral, BID, Jeet Ramírez MD, 20 mg at 03/30/17931 glucagon (GLUCAGEN) injection 1 mg, 1 mg, [...] Jeet Ramírez MD, 12.5 mg at 0 03/29/17 2149 senna-docusate (SENOKOT S) 8.6-50 mg 2 tablet, 2 tablet, oral, BID, Jeet Ramírez MD, 2 tablet at 03/30/17 0932 warfarin (COUMADIN) tablet 7.5 mg, 7.5 mg, oral, QPM, Ariana Bose, OBJECTIVE: Last Vitals: BP 101/56 | Pulse [...] daily - Patient will follow up with residential service technician in [place] on discharge; appreciate cardiolo adriana assistance with [...] stenosis (noted on o utside records, on Miracle q8 as outpatient) Improved today -continue oxycodone [...] 44 to 32 during first day at [facility] , with addition decline to 24 the [...] in the setting of cardiogenic shock, with mckoen bsequent improvement and stabilization ~1.3-1.4 with hemodynamic [...] assistance Barriers for DC: delivery/approval of lifevest, [facility] bed Ariana Bose DO Binder Rollerground crew chief Clinical Hospitalist and Medicine Teaching Service Division of Hospital Medicine [facility] Pager [phone] [facility] DEPARTMENT: Hosp- [id number] Place of Service: - Date of Service: 03/26/2017 CSN: [id number] Modifiers:GC Resident Involved: Yes Suggested CPT: 11700 Subsequent Visit Detailed/High complexity 35 min Cristi [...] given continued elevated Tn, patient's significant recent MA, we activated the laborer yard. Patient received 325 mg ASA at bedside and was briefly on heparin which has since been disc ontinued. Per cardiology will continue daily 81 mg ASA, plavix and warfarin. Continue to t rend troponins as well. I spent 30 minutes with this patient with >50% of the time [facility], evaluating studies and coordinating care w/ cardiology.Electronical ly signed by Ivette Chaudhry MD at 03/30/2017 6:24 AM Gerson Oseguera MD - 03/30/2017 4:31 AM PDTCardiology Preliminary Procedure Note (Full report to follow) Primary Care Provider: Jamal Guerrero MD Referring Provider: No Referring Provider Per Patient Junior Accountant Bookkeeper Staff: Katarina Ngo M.D. Procedure(s): Coronary Angiography [...] None Complications: None Hemostasis: Manual compression in laborer yard. Site: [facility] Recommendations: Patient Status: Inpatient Usual post cath care. Ariana Ivy D O - 03/29/2017 9:30 AM PDT CLINICAL HOSPITALIST SERVICE PROGRESS NOTE PATIENT'S NAME/MRN: Ron Mckeon/[id number] HOSPITAL DAY: #14 24-HOUR EVENTS & SUBJECTIVE: [...] dr op, 1 drop, Both Eyes, PRN, Venice Butcher, [...] MD, Last Rate: 19.5 mL/hr at 03/29/17 08, 1,950 U nits/hr at 03/29/17 0817 insulin lispro (HUMALOG) injection, , subcutaneous, QID, Jose Ramon Alvarado MD, 2 Units at 03/27/171955 insulin NPH (HUMULIN N) injection 2 Units, 2 Units, subcutaneous, Q12H (Scheduled), Salvador Alvarado MD, 2 Units at 03/28/172206 ipratropium-albuterol (DUO-NEB) nebulizer solution 3 mL, 3 mL, inhalation, Q6H PRN, Terry Ochoa MD lidocaine (XYLOCAINE) 5 % ointment, , topical, PRN, Arinaa Bose DO lisinopril (PRINIVIL) tablet 5 mg, [...] nystatin (MYCOSTATIN) powder, , topical, BID, Ariana Bose, [DISCONTINUED] oxyCODONE (immediate release) (ROXICODONE) tablet 5-10 [...] Jeet Ramírez MD, 12.5 mg at 0 03/28/17 2142 senna-docusate (SENOKOT S) 8.6-50 mg 2 tablet, 2 tablet, oral, BID, Jeet Ramírez MD, 2 tablet at 03/29/17 0848 warfarin (COUMADIN) tablet 5 mg, 5 mg, oral, QPM, Ariana Bose DO, 5 mg at 03/28/17 2142 OBJECTIVE: Last Vitals: BP 109/67 | Pulse [...] stenosis (noted on o utside records, on Miracle 10 q8 as outpatient) -continue oxycodone 10mg [...] 44 to 32 during first day at [facility] , with addition decline to 24 the [...] arm, midline left arm Ariana Bose DO Binder Rollerground crew chief Clinical Hospitalist and Medicine Teaching Service Division of Hospital Medicine [facility] Pager [phone] [facility] DEPARTMENT: Hosp- [id number] Place of Service: IP - [id number] Date of Service: 03/26/2017 CSN: [id number] Modifiers:GC Resident Involved: Yes Suggested CPT: 77911 Subsequent Visit Detailed/High complexity 35 min Ariana Ivy DO - 03/28/2017 8: 06 AM PDT CLINICAL HOSPITALIST SERVICE PROGRESS NOTE PATIENT'S NAME/MRN: Ron Mckeon/[id number] HOSPITAL DAY: #13 24-HOUR EVENTS & SUBJECTIVE: [...] dr wong, 1 drop, Both Eyes, PRN, KULWINDER Bella [...] stenosis (noted on o utside records, on Miracle q8 as outpatient) Improving L groin pain [...] 44 to 32 during first day at [facility] , with addition decline to 24 the [...] arm, midline left arm Ariana Bose DO Binder Rollerground crew chief Clinical Hospitalist and Medicine Teaching Service Division of Hospital Medicine [facility] Pager [phone] [facility] DEPARTMENT: Hosp- [id number] Place of Service: - Date of Service: 03/26/2017 CSN: [id number] Modifiers:GC Resident Involved: Yes Suggested CPT: 47148 Subsequent Visit Detailed/High complexity 35 min Ariana [...] dr op, 1 drop, Both Eyes, PRN, Venice Butcher, [...] BID, Ariana Bose DO, 20 mEq at 03/26/17 214 probiotic yogurt (MARTIN[employer]S YOGURT), , oral, BID, [...] 44 to 32 during first day at [facility] , with addition decline to 24 the [...] arm, midline left arm Ariana Bose DO Binder Rollerground crew chief Clinical Hospitalist and Medicine Teaching Service Division of Hospital Medicine [facility] Pager [phone] [facility] DEPARTMENT: Hosp- [id number] Place of Service: - Date of Service: 03/26/2017 CSN: [id number] Modifiers:GC Resident Involved: Yes Suggested CPT: 26886 Subsequent Visit Detailed/High complexity 35 min Chapis [...] Jose Ramon Alvarado MD, 1 Units at 03/25/17855 insulin lispro (HUMALOG) injection, , subcutaneous, QID, Jose Ramon Alvarado MD, 2 Units at 03/25/1756 insulin NPH (HUMULIN N) injection 2 Units, [...] Labs 03/23/17 0200 03/24/17 0012 03/25/17 0052 03/25/17200703/25/17 23303/26/17 0337 GLU 127* < > 164* < [...] (or 3 results) Recent Labs 03/24/17 0012 03/25/175103/26/17336 WBC 14.56* 17.00* 15.15* HB 8.1* 7.8* [...] 44 to 32 during first day at [facility] , with addition decline to 24 the [...] arm, midline left arm Ariana Bose DO Binder Rollerground crew chief Clinical Hospitalist and Medicine Teaching Service Division of Hospital Medicine [facility] Pager [phone] [facility] DEPARTMENT: Hosp- [id number] Place of Service: - Date of Service: 03/26/2017 CSN: [id number] Modifiers:GC Resident Involved: Yes Suggested CPT: 13683 Subsequent Visit Detailed/High complexity 35 min Wan Cano MD - 03/25/2017 3:07 PM PDT . Cardiovascular Intensive Care Unit Attending Progress Note CVICU D2 Assigned #[id number] ICU Admission Reason Most Recent Value ICU [...] artery. ANY X2 placed in outs surinder laborer yard along with IABP. Arrived in cardiogenic shock, [...] Pager Mellisa Haji MD Admitting Provider Cardiology 11280 Zelalem Del Toro MD ICU PM Attending Anesthesiology 03454 Code Status Code Status Full Code The Advanced Care Note for this patient can be found under the notes tab in chart review. Quality section Reardon necessity reviewed: Hourly/Accurate measurement of urinary output for clinical manage ment of critically ill patients Wan Deleon MD, JOHN, ERVIN Cardiovascular Intensive Care Unit [address] [place], [place] [address] I have spent a total of 38 [...] xceptions/additions as noted. Date of Service: 03/25/2017 [facility] DEPARTMENT: ANE ICU CARDIAC Place of Service:- Inpatient CSN: [id number] Suggested Modifier: GC - Resident Involved Suggested CPT: TO INFECTION CONTROL PRACTITIONER Bill Roche, Pal neely - 03/24/2017 10:54 AM PDT Cardiovascular Intensive Care Unit Team Progress Note CVICU D2 Assigned #[id number] ICU Admission Reason Most Recent Value ICU [...] artery. ANY X2 placed in outs surinder laborer yard along with IABP. Arrived in cardiogenic shock, urgently placed on ECMO. IABP an d ECMO since removed, pt weaned from inotropes, extubated, being diuresed, continuing on VTE -protocol heparin gtt as warfarin is begun, awaiting therapeutic INR 24 Hour events 03/23-18: -None acute -met diuresis goal -TFs turned [...] & Plan Patient went into VFib during laborer yard procedure at [facility]. Was shocked 17 times Targeted temperature management [...] edema. Patient was difficult intubation at outside laborer yard. -secretions improving, cough strong -s/p 7 days [...] Pager Mellisa Haji MD Admitting Provider Cardiology 53830 Zelalem Del Toro MD ICU PM Attending Anesthesiology 10290 The Advanced Care Note for this patient [...] Ramon Alvarado MD Author:Jose Ramon Alvarado MD [address] [id number] signed by Jose Ramon Alvarado Md at 03/24/2017 11:00 AM Wan Cano MD - 03/24/2017 9:47 AM PDTFormatting of this note might be differe nt from the original. Cardiovascular Intensive Care Unit Attending Progress Note CVICU D2 Assigned #[id number] ICU Admission Reason Most Recent Value ICU [...] artery. ANY X2 placed in outs surinder laborer yard along with IABP. Arrived in cardiogenic shock, [...] treatment team members Provider Role Specialty Pager Mellias Haji MD Admitting Provider Cardiology 01669 Zelalem Del Toro MD ICU PM Attending Anesthesiology 72227 Code Status Code Status Full Code The Advanced Care Note for this patient can be found under the notes tab in chart review. Quality section Reardon necessity reviewed: Hourly/Accurate measurement of urinary output for clinical manage ment of critically ill patients Wan Deleon MD, JOHN, ERVIN Cardiovascular Intensive Care Unit [facility] [place] [address] I have spent a total of 42 [...] xceptions/additions as noted. Date of Service: 03/24/2017 [facility] DEPARTMENT: [facility] ICU CARDIAC Place of Service:- Inpatient CSN: [id number] Suggested Modifier: GC - Resident Involved Suggested CPT: TO INFECTION CONTROL PRACTITIONER Author:Wan Deleon Md, [address] [id number] signed by Wan Deleon MD at 03/24/2017 9:49 AM Tamia De La Paz PA-C - 03/23/2017 11:54 PM PDTFormatting of this note might be diff erent from the original. Cardiovascular Intensive Care Unit Clinical Update Note Team: D2 Team Pager: [phone] Attending: Katey Pt Name: Ron Mckeon ID: Abbreviated HPI Abbreviated HPI / Daily Assessment Ron Mckeon is a 61 year old man with acute cardiogenic shock in the setting of acu te STEMI from thrombosed left main coronary artery. Initially had lesion in proximal LAD and distal LM, but then acutely thrombosed his left main coronary artery. ANY X2 placed in outs surinder laborer yard along with IABP. Arrived in cardiogenic shock, [...] recent imaging availabl e. EDUIN Alas PA-C Pal Khan Md - 03/23/2017 11:27 AM PDT Cardiovascular Intensive Care Unit Team Progress Note CVICU D2 Assigned #[id number] ICU Admission Reason Most Recent Value ICU [...] artery. ANY X2 placed in outs surinder laborer yard along with IABP. Arrived in cardiogenic shock, [...] & Plan Patient went into VFib during laborer yard procedure at [facility]. Was shocked 17 times Targeted temperature management [...] edema. Patient was difficult intubation at outside laborer yard. -fevering nightly, cultures negative, WBC stable -secretions [...] Pager Mellisa Haji MD Admitting Provider Cardiology [id number] The Advanced Care Note for this patient [...] Ramon Alvarado MD Author:Jose Ramon Alvarado MD [address] [id number] signed by Jose Ramon Alvarado Md at 03/23/2017 11:41 AM PDTWan Deleon MD - 03/23/2017 9:51 AM PDTFormatting of this note might be differe nt from the original. Cardiovascular Intensive Care Unit Attending Progress Note CVICU D2 Assigned #[id number] ICU Admission Reason Most Recent Value ICU [...] artery. ANY X2 placed in outs surinder laborer yard along with IABP. Arrived in cardiogenic shock, [...] Pager Mellisa Haji MD Admitting Provider Cardiology 04427 Code Status Code Status Full Code The Advanced Care Note for this patient can be found under the notes tab in chart review. Quality section A-Line necessity reviewed: Plan to DC today Reardon necessity reviewed: Hourly/Accurate measurement of urinary output for clinical manage ment of critically ill patients Currently at risk for: delirium, stroke, MA, arrythmia, tamponade, PE, respiratory failure, ARDS, aspiration, AYLIN / ARF, coagulopathy, DVT, stress ulcers, sepsis, BONIFACIO, electrolyte per turbations, malnutrition, deconditioning and decubiti. Wan Deleon MD, JOHN, ERVIN Cardiovascular Intensive Care Unit [facility] [place] [address] I have spent a total of 44 [...] xceptions/additions as noted. Date of Service: 03/23/2017 [facility] DEPARTMENT: [facility] ICU CARDIAC Place of Service:- Inpatient CSN: [id number] Suggested Modifier: GC - Resident Involved Suggested CPT: TO INFECTION CONTROL PRACTITIONER Tamia De La Paz PA-C - 03/22/2017 7:58 PM PDT . Cardiovascular Intensive Care Unit Clinical Update Note Team: D2 Team Pager: [phone] Attending: Abdulaziz Merrill Name: Ron Mckeon ID: Abbreviated HPI Abbreviated HPI / Daily Assessment Ron Mckoen is a 61 year old man with [...] Unit Attending Progress Note CVICU D2 Assigned #[id number] ICU Admission Reason Most Recent Value ICU [...] long tobacco abuse history, presenting with acute MA and STEMI, resu ltant cardiogenic shock refractory [...] Pager Mellisa Haji MD Admitting Provider Cardiology 57345 Code Status Code Status Full Code Quality section A-Line necessity reviewed: Aimk-lf-bzib blood pressure monitoring Reardon necessity reviewed: Hourly/Accurate [...] Date of Service: 03/22/2017 Author:Anurag Ashby MD [address] [email or web address] signed by Anurag Ashby MD at 03/22/2017 11:07 AM P Macho Sellers MD - 03/22/2017 11:00 AM PDT Cardiovascular Intensive Care Unit Team Progress Note CVICU D2 Assigned #[id number] ICU Admission Reason Most Recent Value ICU [...] & Plan Patient went into VFib during laborer yard procedure at [facility]. Was shocked 17 times Targeted temperature management [...] edema. Patient was difficult intubation at outside laborer yard. -vanc zosyn stopped 03/17 -fever 38.3 last [...] Pager Mellisa Haji MD Admitting Provider Cardiology 74203 This patient does not have an Advanced Care Note for this Admission. Please use the Goal of care section of your ICU navigator to document the advanced care discussion. Quality section A-Line necessity reviewed: Usng-bx-uult blood pressure monitoring Reardon necessity reviewed: Hourly/Accurate measurement of urinary output for clinical manage ment of critically ill patients FAST HUG Feeding: Tube Feeds: Replete @ 55 mL/hr Analgesia: APAP, hydromorphone PRN Sedation: N/A Thromboprophylaxis: Heparin infusion Head of Bed: Head of Bed >30 degrees Ulcer Prophylaxis: Famotidine Glycemic Control: insulin infusion Created by Macho Gaytan MD Author:Macho Gaytan MD [address] [address]Vuvmpymdgabfie signed by Macho Gaytan MD at 03/23/2017 12:35 PM PDTT Tamia leon PA-C - 03/21/2017 7:02 PM PDTFormatting of this note might be different f rom the original. Cardiovascular Intensive Care Unit Clinical Update Note Team: D2 Team Pager: [phone] Attending: Abdulaziz Merrill Name: Ron Mckeon ID: [...] Opens eyes, nods head. Follows commands for machine worker and Plan: Hospital Problems Priority POA Head/Neck [...] Unit Team Progress Note CVICU D2 Assigned #[id number] ICU Admission Reason Most Recent Value ICU [...] & Plan Patient went into VFib during laborer yard procedure at [facility]. Was shocked 17 times Targeted temperature management [...] edema. Patient was difficult intubation at outside laborer yard. -vanc zosyn stopped 03/17 -fever 38.3 last [...] Pager Mellisa Haji MD Admitting Provider Cardiology 76267 This patient does not have an Advanced Care Note for this Admission. Please use the Goal of care section of your ICU navigator to document the advanced care discussion. Quality section A-Line necessity reviewed: Ueqj-ia-fsfd blood pressure monitoring CVC necessity reviewed: Hemodynamic [...] by Macho Gaytan MD Author:Macho Gaytan MD [address] [address]Vrtkfsleqvwbvn signed by Macho Gaytan MD at 03/21/2017 1:43 PM Anurag Paredes MD - 03/21/2017 12:22 PM PDT Cardiovascular Intensive Care Unit Attending Progress Note CVICU D2 Assigned #[id number] ICU Admission Reason Most Recent Value ICU [...] long tobacco abuse history, presenting with acute MA and STEMI, resu ltant cardiogenic shock refractory [...] Pager Mellisa Haji MD Admitting Provider Cardiology 07763 Code Status Code Status Full Code Quality section A-Line necessity reviewed: Qfbi-xm-ajdj blood pressure monitoring CVC necessity reviewed: Plan [...] Date of Service: 03/21/2017 Author:Anurag Ashby MD [address] [place] [address]Keabcuewfrwpjx signed by Anurag Ashby MD at 03/21/2017 12:22 PM P Almas Roche, Jose Ramon - 03/20/2017 12:36 PM PDTFormatting of this note might be different f rom the original. Cardiovascular Intensive Care Unit Team Progress Note CVICU D2 Assigned #[id number] ICU Admission Reason Most Recent Value ICU [...] & Plan Patient went into VFib during laborer yard procedure at [facility]. Was shocked 17 times Targeted temperature management [...] S/p VA ECMO 03/15-03/19 Vent on PS 5/10/50%, RR in high 20s PRN ABGs Sedation [...] edema. Patient was difficult intubation at outside laborer yard. -vanc zosyn stopped 03/17 -fever 38.3 last [...] Pager Mellisa Haji MD Admitting Provider Cardiology 14109 Quality section A-Line necessity reviewed: Tfjo-hc-onku blood pressure monitoring CVC necessity reviewed: Hemodynamic [...] Ramon Alvarado MD Author:Jose Ramon Alvarado MD [address] [address]Jezptnxgwlccmw signed by Jose Ramon Alvarado Md at 03/20/2017 12:49 PM PDTMoulton, Anurag Soni MD - 03/20/2017 12:18 PM PDTFormatting of this note might be different f rom the original. Cardiovascular Intensive Care Unit Attending Progress Note CVICU D2 Assigned #[id number] ICU Admission Reason Most Recent Value ICU [...] long tobacco abuse history, presenting with acute MA and STEMI, resu ltant cardiogenic shock refractory [...] Pager Mellisa Haji MD Admitting Provider Cardiology 88711 Code Status Code Status Full Code Quality section A-Line necessity reviewed: Osgh-nb-prma blood pressure monitoring CVC necessity reviewed: Medication [...] Date of Service: 03/20/2017 Author:Anurag Ashby MD [facility] [address] [place] [address]Obqtsznydyplaw signed by Anurag Ashby MD at 03/20/2017 12:18 PM P Raul Conte MD - 03/19/2017 11:01 PM PDT Cardiovascular Intensive Care Unit Attending Progress Note CVICU D2 Assigned #[id number] ICU Admission Reason Most Recent Value ICU [...] long tobacco abuse history, presenting with acute MA and STEMI, resu ltant cardiogenic shock refractory [...] Pager Mellisa Haji MD Admitting Provider Cardiology 13770 Code Status Code Status Full Code Quality section A-Line necessity reviewed: Znng-rb-eeoz blood pressure monitoring CVC necessity reviewed: Hemodynamic [...] Date of Service: 03/19/2017 Author:Raul Wei MD [address] [address]Fvgsbaggsuzyyj signed by Raul Wei MD at 03/19/2017 11:01 PM PDT Jose Ramon Alvarado Md - 03/19/2017 4:49 PM PDTFormatting of this note might be different fro m the original. 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 Was shocked 17 times Targeted temperature management [...] edema. Patient was difficult intubation at outside laborer yard. -vanc zosyn stopped 03/17 -fever 38.3 03/17 [...] Pager Mellisa Haji MD Admitting Provider Cardiology 92444 Quality section A-Line necessity reviewed: Omdb-ue-nfdx blood pressure monitoring CVC necessity reviewed: Hemodynamic monitoring Reardon necessity reviewed: Hourly/Accurate measurement of urinary output for clinical manage ment of critically ill patients FAST HUG Feeding: TFs Analgesia: multimodal Sedation: propofol Thromboprophylaxis: Heparin infusion Head of Bed: Head of Bed >30 degrees Ulcer Prophylaxis: protonix Glycemic Control: insulin infusion Created by Jose Ramon Alvarado MD Author:Jose Ramon Alvarado MD [address] [phone] signed by Jose Ramon Alvarado Md at 03/19/2017 4:54 PM Lee Fernandez MD - 03/19/2017 2:22 PM PDT . Extracorporeal Life Support Service Daily Progress Note Pager #[phone] Type: Veno-Arterial (CPT 64208 [place] [address]) Date of insertion: 03/15/2017 Diagnosis:Cardiogenic shock Dressing [...] Heparin Assessment: 1 61 y/o M STEMI 7 with LM dissection and stent a/w cardiogenic [...] Unit Attending Progress Note CVICU D2 Assigned #[id number] ICU Admission Reason Most Recent Value ICU [...] long tobacco abuse history, presenting with acute MA and STEMI, resu ltant cardiogenic shock refractory [...] Pager Mellisa Haji MD Admitting Provider Cardiology 53392 Code Status Code Status Full Code Quality section A-Line necessity reviewed: Llfi-az-onrl blood pressure monitoring CVC necessity reviewed: Medication [...] Date of Service: 03/19/2017 Author:Anurag Ashby MD [address] [address]Olwtlcmdfytjeg signed by Anurag Ashby MD at 03/19/2017 2:17 PM Jose Ramon Worthington Md - 03/18/2017 12:56 PM PDTFormatting of this note might be different f rom the original. Cardiovascular Intensive Care Unit Team Progress Note CVICU D2 Assigned #[id number] ICU Admission Reason Most Recent Value ICU [...] (obdulio) pm STEMI (ST elevation myocardial infarction) (FORMERLY [facility]) Yes Overview Xience Alpine 3.0 mm X [...] & Plan Patient went into VFib during laborer yard procedure at [facility]. Was shocked 17 times Targeted temperature management [...] edema. Patient was difficult intubation at outside laborer yard. -vanc zosyn stopped today Abnormal CK Unknown [...] Pager Mellisa Haji MD Admitting Provider Cardiology 82899 Quality section A-Line necessity reviewed: Emjr-jc-vvyn blood pressure monitoring CVC necessity reviewed: Hemodynamic monitoring Reardon necessity reviewed: Hourly/Accurate measurement of urinary output for clinical manage ment of critically ill patients FAST HUG Feeding: trickle feeds Analgesia: multimodal Sedation: propofol Thromboprophylaxis: Heparin infusion Head of Bed: Head of Bed >30 degrees Ulcer Prophylaxis: nexium Glycemic Control: insulin infusion Created by Jose Ramon Alvarado MD Author:Jose Ramon Alvarado MD [address] [phone] signed by Jose Ramon Alvarado Md at 03/18/2017 1:27 PM PDTMoulton, Anurag Soni MD - 03/18/2017 11:56 AM PDTFormatting of this note might be different f rom the original. Cardiovascular Intensive Care Unit Attending Progress Note CVICU D2 Assigned #[id number] ICU Admission Reason Most Recent Value ICU [...] long tobacco abuse history, presenting with acute MA and STEMI, resu ltant cardiogenic shock refractory [...] Pager Mellisa Haji MD Admitting Provider Cardiology 56984 Code Status Code Status Full Code Quality section A-Line necessity reviewed: Ugls-ut-kgza blood pressure monitoring CVC necessity reviewed: Medication [...] Date of Service: 03/18/2017 Author:Anurag Ashby MD [address] [phone] signed by Anurag Ashby MD at 03/18/2017 11:59 AM Lee Prince MD - 03/18/2017 11:37 AM PDTFormatting of this note might be different from t vikash original. . Extracorporeal Life Support Service Daily Progress Note Pager #[phone] Type: Veno-Arterial (CPT 72189 [place] [address]) Diagnosis:Cardiogenic shock Dressing changed: no Dressing Changed [...] 39/ HCO3: 25/ BE: 1.4 Anticoagulation (see MAR) Heparin Assessment: 1. Day 4 VA ECMO [...] safe from cardiac standpoint. Lee Amos MD Jim, Susan Laughlin MD - 03/17/2017 10:48 PM PDTFormatting of this note might be different from the origin al. . Extracorporeal Life Support Service Daily Progress Note Pager #[phone] Type: Veno-Arterial (CPT 78086 or 38432) Date of insertion: 03/15/2017 Diagnosis:Cardiogenic shock Dressing [...] 33/ HCO3: 26/ BE: 2.8 Anticoagulation (see NOV) Heparin Assessment: 1. Day 3 Stable VA [...] note might be different from the orig inal. Cardiovascular Intensive Care Unit Attending Progress Note CVICU D2 Assigned #[id number] ICU Admission Reason Most Recent Value ICU [...] long tobacco abuse history, presenting with acute MA and STEMI, resu ltant cardiogenic shock refractory [...] Pager Mellisa Haji MD Admitting Provider Cardiology 26356 Quality section A-Line necessity reviewed: Gqix-yj-clwl blood pressure monitoring CVC necessity reviewed: Rapid [...] Date of Service: 03/17/2017 Author:Raul Wei MD [address] [address] [place] [address]Daigfyyaiiitjg signed by Raul Wei MD at 03/17/2017 9:20 PM PDT Anurag Ashby MD - 03/17/2017 1:58 PM PDT Cardiovascular Intensive Care Unit Attending Progress Note CVICU D2 Assigned #[id number] ICU Admission Reason Most Recent Value ICU [...] long tobacco abuse history, presenting with acute MA and STEMI, resu ltant cardiogenic shock refractory [...] Pager Mellisa Haji MD Admitting Provider Cardiology 01184 Quality section A-Line necessity reviewed: Vgcv-xl-uoug blood pressure monitoring CVC necessity reviewed: Medication requires central access [place]er[place] necessity reviewed: Acute urinary retention or obstruction [...] Date of Service: 03/17/2017 Author:Anurag Ashby MD [address] [phone] signed by Anurag Ashby MD at 03/17/2017 2:00 PM P Mauri Calderon - 03/17/2017 1:01 PM PDTTransthoracic echocardiogram completed. Final r eport to follow. Teddy Ibrahim DO, MS - 03/17/2017 10:00 AM PDT Cardiovascular Intensive Care Unit Team Progress Note CVICU D2 Assigned #[id number] ICU Admission Reason Most Recent Value ICU [...] & Plan Patient went into VFib during laborer yard procedure at [facility]. Was shocked 17 times Targeted temperature management [...] edema. Patient was difficult intubation at outside laborer yard. -vanc zosyn stopped today Abnormal CK Unknown [...] Pager Mellisa Haji MD Admitting Provider Cardiology 57926 This patient does not have an Advanced Care Note for this Admission. Please use the Goal of care section of your ICU navigator to document the advanced care discussion. Quality section A-Line necessity reviewed: Hjur-kl-cpnf blood pressure monitoring CVC necessity reviewed: Hemodynamic monitoring Reardon necessity reviewed: Hourly/Accurate measurement of urinary output for clinical manage ment of critically ill patients FAST HUG Feeding: Tube Feeds Analgesia: apap, oxy, hm Sedation: propofol Thromboprophylaxis: Heparin infusion Head of Bed: Head of Bed Flat Ulcer Prophylaxis: Pantoprazole Glycemic Control: insulin infusion Created by Teddy Kee Do, MS [facility] DEPARTMENT: [facility] ICU CARDIAC Place of Service:- Inpatient CSN: [id number] Suggested Modifier: GC - Resident Involved Suggested CPT: TO INFECTION CONTROL PRACTITIONER Author:Teddy Kee Do, MS [address] [address]Wuzdgtdgmnsyln signed by Teddy Kee DO, MS at 03/17/2017 6:35 PM Raul Hanson MD - 03/16/2017 7:38 PM PDT Cardiovascular Intensive Care Unit Attending Progress Note CVICU D2 Assigned #[id number] ICU Admission Reason Most Recent Value ICU [...] long tobacco abuse history, presenting with acute MA and STEMI, resu ltant cardiogenic shock refractory [...] Pager Mellisa Haji MD Admitting Provider Cardiology 64090 Quality section A-Line necessity reviewed: Rnhk-xk-svia blood pressure monitoring CVC necessity reviewed: Rapid [...] Date of Service: 03/16/2017 Author:Raul Wei MD [address] [phone] signed by Raul Wei MD at 03/17/2017 11:03 AM Jose Ramon Boogie Md - 03/16/2017 5:15 PM PDTFormatting of this note might be different fro m the original. Cardiovascular Intensive Care Unit Team Progress Note CVICU D2 Assigned #[id number] ICU Admission Reason Most Recent Value ICU [...] & Plan Patient went into VFib during laborer yard procedure at [facility]. Was shocked 17 times Now on targeted temperature management as he was intubated on arrival and we have not been able to check his mental status due to ongoing critical illness -arrest was 03/15 AM -TTM begun 03/15 PM, now through [...] edema. Patient was difficult intubation at outside laborer yard. -bridget retana for now Physical Exam vitals [...] Pager Mellisa Haji MD Admitting Provider Cardiology 06437 Quality section A-Line necessity reviewed: Nmtx-vv-exij blood pressure monitoring CVC necessity reviewed: Hemodynamic [...] Ramon Alvarado MD Author:Jose Ramon Alvarado MD [address] [address] [place] [address]Udiqfkcxftzxcm signed by Jose Ramon Alvarado Md at 03/16/2017 5:21 PM PDTTeddy Kee DO, MS - 03/16/2017 2:46 PM PDTDate:03/16/2017 Author: Teddy Kee Do, MS Procedure: Removal of Intra Aortic Balloon [...] Unit Attending Progress Note CVICU D2 Assigned #[id number] ICU Admission Reason Most Recent Value ICU [...] ICU Day #2 after being transferred from [place] in [place] in acute cardiogenic archie ck following an anterior STEMI. Upon arrival to [facility], decision was made to go emergently on [...] Pager Mellisa Haji MD Admitting Provider Cardiology 89780 Quality section A-Line necessity reviewed: Vpin-zj-qfup blood pressure monitoring CVC necessity reviewed: Hemodynamic [...] Date of Service: 03/16/2017 Author:Anurag Ashby MD [address] [address]Yngyclraapeqnm signed by Anurag Ashby MD at 03/16/2017 1:23 PM Lee Prince MD - 03/16/2017 9:41 AM PDTFormatting of this note might be different from t he original. . Extracorporeal Life Support Service Daily Progress Note Pager #[phone] Type: Veno-Arterial (CPT [address]2671 [place] [address]) Diagnosis:Cardiogenic shock Dressing changed: no Dressing Changed [...] 40/ HCO3: 18/ BE: -9 Anticoagulation (see NOV) Heparin Assessment: Day 2 stable VA ECMO [...] in ECMO Remove IABP Wean Sedation Lee Amso MD irna Berumen PA-C - 03/16/2017 3:42 AM PDT Cardiovascular Intensive Care Unit Clinical Update Note Team: D2 Team Pager: [phone] Attending: Abdulaziz Merrill Name: Ron Mckeon ID: [...] Date of Service: 03/16/2017 Mirna Berumen PA-C [facility] DEPARTMENT: [facility] ICU CARDIAC Place of Service:- Inpatient CSN: [id number] Suggested Modifier: None Suggested CPT: TO INFECTION CONTROL PRACTITIONER Mirna Berumen PA-C Everardo Valladares MD - 03/15/2017 9:04 PM PDT Cardiovascular Intensive Care Unit Attending Progress Note CVICU D2 Assigned #[id number] ICU Admission Reason Most Recent Value ICU Admission reason Cardiogenic Shock filed at 03/15/2017 1531 Hospital admission dx: left anterior descending artery occlusion, needs cabg Days in ICU Days in Hospital Medical Decision Making ICU Day #1 after being transferred from [place] in [place] in acute cardiogenic archie ck following an anterior STEMI. Upon arrival to [facility], decision was made to go emergently on [...] Pager Mellisa Haji MD Admitting Provider Cardiology 30221 Quality section A-Line necessity reviewed: Zczs-te-wptr blood pressure monitoring CVC necessity reviewed: Hemodynamic [...] and the recent imaging available. Seen with PA/[employer] C[employer] Winston Cole. Please see their note for details. I reviewed the documented findings, all data and the recent imaging available. Date of Service: 03/15/2017 Author:Everardo Cintron MD [address] [address]Hcmnmxrvwlytdl signed by Everardo Cintron MD at 03/15/2017 9:[address] - 03/15/2017 2:11 PM PDTTransthoracic echocardiogram completed. Final r eport to follow. Patrick Byrd MD,MPH - 03/15/2017 2:00 PM PDT . Extracorporeal Life Support Service Consult Service Note Pager #[phone] Date: 03/15/17 Author: Patrick Ruiz MD,MPH Consulting Attending: Mellisa Haji MD Reason for Consult: VA ECMO Consideration HPI: 61 year old male who presents this afternoon to [facility] in acute cardiogenic shock second maciej to STEMI / thrombosed L main coronary artery. He was transferred from [place]. His symptoms started this morning around 3am and was seen in [place], [place]. He was diagnosed w ith an anterior STEMI and transferred to the laborer yard in [place], [place]. He was found to h ave [...] pressors (epinephrine and dopamine). On arrival to [facility], he was in profound cardiogenic shock and hypoxic. His MAP was in the 40s. He was tach ycardic into the 150s. IABP was increased to 1:2. Past Medical History: Past Medical History: Diagnosis Date Cardiogenic shock (FORMERLY [facility]) 03/15/2017 Coronary artery disease 03/15/2017 Hypercholesterolemia Hypertension STEMI (ST elevation myocardial infarction) (FORMERLY [facility]) 03/15/2017 Tobacco use Past Surgical History: Past [...] IV, NEEDED (BOLUS) B olus from Same Ba03/15 1808 polyethylene glycol (MIRALAX) packet 34 g 34 g, ftub, TID PRN Ordered propofol (DIPRIVAN) bolus from continuous infusion 10-20 mg 20 mg, IV, Q15MIN PRN Bolus fr om Same Ba/09 175 white petrolatum-mineral oil-lanolin (LACRILUBE) 83-15 % ophthalmic [...] from cardiogenic shock. Patrick Ruiz MD, MPH dictaphone mechanic Trauma, Critical Care & Acute Care Surgery [facility] onies, Patrick Sexton MD,MPH - 03/15/2017 1:48 PM PDT . . Extracorporeal Life Support Service Initiation Note Pager #[phone] Date of service: 03/15/2017 Author: Patrick Ruiz Md,Mph ECMO Type: Veno-Arterial ([place] [address] [place] [address]) Oxygenation index FiO2: 100 MAP: 22 Diagnosis:Cardiogenic [...] old male who presents this afternoon to [facility] in acute cardiogenic shock secondary to STEMI [...] | + +--------+ + + + | OG-II-XTY-HB,POC RT | Routin | 03/19/2017 | ST [...] | + +--------+ + + + | NV ECMO REV | Routin | 03/19/2017 | [...] +---+--------+ + +--------+ + + + | CW-BR-QVP-HB,POC RT | Routin | 03/19/2017 | ST [...] | + +--------+ + + + | GS-DM-RYM-HB,POC RT | Routin | 03/19/2017 | ST elevation | Results for this | | | e | 10:06 AM | myocardial | procedure are in the | | | | PDT | infarction involving | results section. | | | | | left main coronary | | | | | | artery (HCC) | | + +--------+ + + + | PC-FM-BHM-HB,POC RT | Routin | 03/19/2017 | ST [...] | + +--------+ + + + | VD-YH-LXS-HB,POC RT | Routin | 03/17/2017 | ST [...] | + +--------+ + + + | VG-OT-LDU-HB,POC RT | Routin | 03/16/2017 | ST [...] | + +--------+ + + + | ZT-JX-PHP-HB,POC RT | Routin | 03/16/2017 | ST [...] | + +--------+ + + + | EU-JB-JXR-HB,POC RT | Routin | 03/15/2017 | ST [...] this | | PLACEMENT | e | 5:25 PM | | procedure are in the [...] | + +--------+ + + + | IF-SS-HKG-HB,POC RT | Routin | 03/15/2017 | ST [...] | + +--------+ + + + | HZ-VA-FRN-HB,POC RT | Routin | 03/15/2017 | ST [...] Height: 175 cm Weight: 89 kgBSA: 2.05 [id number] PHYSICIAN:Katarina Ngo | | .FELLOW:Gerson Mejias M.D. [...] right coronary angiography.COMPLICATIONS:None.TECHNIQUE:Right femoral artery | | 6-Marshallese 10 cm [place] sheath, 6-Marshallese XB 3.5 guide catheter, 5-Marshallese JR4 | | catheter.DESCRIPTION OF PROCEDURE:Informed consent [...] modified Seldinger technique and a | | 5-Marshallese micropuncture system, a 6-Marshallese 10 cm [place] sheath was placed in the right | | femoral artery. A 6-Marshallese XB 3.5 guide catheter was inserted into the ascending aorta | | over a guidewire. The guidewire was removed. The catheter was aspirated and flushed. | | The left coronary system was selectively engaged and imaged in multiple projections. A | | 5-Marshallese Kymberly right 4 catheter was advanced to [...] DOSE AREA | | PRODUCT: 3749 cGy [id number]:Aortic pressure 87/15, mean aortic pressure 63, heart [...] the | | generation of this report.MANDI Ibarra/MODLDD: 03/30/2017 04:50:01DT: | | 03/30/2017 08:34:34Job #: [id number] | |extending from it into the LAD. [...] |YDT/MODL | | | | | | /[id number] | + + CAPILLARY BLOOD GLUCOSE (NO [...] [facility] | [address] | [place], [place] | | | JULIANN [facility] | [address] | [address] | | | TESTS | | | [...] | Specimen | + + | Blood - Blood | | (substance) | + + + + + + + | Performing | Address | City/State/Zipcode | Phone Number | | Organization | | | | + + + + + | [facility] [employer] | [address] | [place] [address] | | | SERVICES, CORE | PARK [...] | Specimen | + + | Blood - Blood | | (substance) | + + + + + | Narrative | Performed At | + + + | Immature Granulocytes (IG) include metamyelocytes, myelocytes | [facility] | | and promyelocytes. Bands are not included in the IG count. Bands are | LABORATORY | | included in the neutrophil count. | SERVICES, CORE | + + + + + + + + | Performing | Address | City/State/Zipcode | Phone Number | | Organization | | | | + + + + + | [employer] [facility] [facility] | [address] | [place] [address] | | | SERVICES, CORE | PARK [...] | Specimen | + + | Blood - Blood | | (substance) | + + + + + + + | Performing | Address | City/State/Zipcode | Phone Number | | Organization | | | | + + + + + | [facility] | [address] | [place] [address] | | | SERVICES, CORE | PARK [...] | | | LABORATORY | | | [place] | | | SERVICES, | | | [...] | Specimen | + + | Blood - Blood | | (substance) | + + + + + | Narrative | Performed At | + + + | Adult glucose reference range change effective 7-12-17. GFR is | [facility] | | estimated using the MDRD equation recommended by the National Kidney | LABORATORY | | Disease Education Program. Estimated GFR Interpretive Information: | SERVICES, CORE | | <60 mL/min/1.73 sq m Chronic Kidney Disease | | | <15 mL/min/1.73 sq m Kidney Failure Estimated | | | GFR greater that 60 mL/min/1.73 sq m is of limited clinical value. | | | The MDRD equation is not valid in the following situations: - | | | Patients under 18 years of age - Severe malnutrition or obesity - | | | Vegetarian diet - Rapidly changing kidney function | | + + + + + + + + | Performing | Address | City/State/Zipcode | Phone Number | | Organization | | | | + + + + + | [facility] | [address] | [place] [address] | | | SERVICES, CORE | TABITHA [...] (H) | 0.90 - 1.20 INR | [facility] | | | | | | LABORATORY | | | | | | SERVICES, | | | | | | CORE | | + + + + + + + + | Specimen | + + | Blood - Blood | | (substance) | + + + + + | Narrative | Performed At | + + + | INR Therapeutic ranges for full anticoagulation: INR for | [facility] | | Venous Thromboembolism (2.0 - 3.0) INR INR for | LABORATORY | | most patients with mech. valves (2.5 - 3.5) INR | SERVICES, CORE | + + + + + + + + | Performing | Address | City/State/Zipcode | Phone Number | | Organization | | | | + + + + + | [facility] | [address] | [place] [address] | | | SERVICES, CORE | PARK [...] | Specimen | + + | Blood - Blood | | (substance) | + + + + + + + | Performing | Address | City/State/Zipcode | Phone Number | | Organization | | | | + + + + + | [facility] | [address] | [place] [address] | | | SERVICES, CORE | TABITHA [...] - MARQUAM | [address] | [place], [place] | | | [facility] | [address] | [address] | | | TESTS | | | [...] (H) | 70 - 99 mg/dL | [facility] - | | | GLUCOSE, | | [...] + + + | [facility] | [address] | [place], [place] | | | [facility] OF [facility] | [address] | [address] | | | TESTS | | | [...] MARQUAM | [address] | [place], [place] | | | JULIANN SILVA OF CARE | [address] | [address] | | | TESTS | | | [...] | Specimen | + + | Blood - Blood | | (substance) | + + + + + | Narrative | Performed At | + + + | Immature Granulocytes (IG) include metamyelocytes, myelocytes | [facility] | | and promyelocytes. Bands are not included in the IG count. Bands are | LABORATORY | | included in the neutrophil count. | [facility] ANTOINE | + + + + + + + + | Performing | Address | City/State/Zipcode | Phone Number | | Organization | | | | + + + + + | [facility] | [address] | [place] [address] | | | SERVICES, CORE | PARK [...] | | | LABORATORY | | | SALVADOREAN | | | SERVICES, | | | [...] | Specimen | + + | Blood - Blood | | (substance) | + + + + + | Narrative | Performed At | + + + | Adult glucose reference range change effective 712-17. GFR is | [facility] | | estimated using the MDRD equation recommended by the National Kidney | LABORATORY | | Disease Education Program. Estimated GFR Interpretive Information: | SERVICES, CORE | | <60 mL/min/1.73 sq m Chronic Kidney Disease | | | <15 mL/min/1.73 sq m Kidney Failure Estimated | | | GFR greater that 60 mL/min/1.73 sq m is of limited clinical value. | | | The MDRD equation is not valid in the following situations: - | | | Patients under 18 years of age - Severe malnutrition or obesity - | | | Vegetarian diet - Rapidly changing kidney function | | + + + + + + + + | Performing | Address | City/State/Zipcode | Phone Number | | Organization | | | | + + + + + | [facility] [employer] | [address] [facility] | [place] [address] | | | SERVICES, CORE | TABITHA [...] | Specimen | + + | Blood - Blood | | (substance) | + + + + + | Narrative | Performed At | + + + | INR Therapeutic ranges for full anticoagulation: INR for | [facility] | | Venous Thromboembolism (2.0 - 3.0) INR INR for | LABORATORY | | most patients with mech. valves (2.5 - 3.5) INR | [facility]TOINE | + + + + + + + + | Performing | Address | City/State/Zipcode | Phone Number | | Organization | | | | + + + + + | [facility] | [address] | [place] [address] | | | ИРИНА ANTOINE | TABITHA [...] | Specimen | + + | Blood - Blood | | (substance) | + + + + + + + | Performing | Address | City/State/Zipcode | Phone Number | | Organization | | | | + + + + + | [facility] | [address] | [place] [address] | | | SERVICES, [facility] | [address] | | | + + + + + CAPILLARY BLOOD GLUCOSE (NO CHG), POC (04/01/2017 12:03 AM PDT) + +---------+ + + + | Component | Value | Ref Range | Performed | Pathologist | | | | | At | Signature | + +---------+ + + + | BLOOD | 127 (H) | 70 - 99 mg/dL | [facility] - | | | GLUCOSE, | | [...] RODGERS | [address] | [place], [place] | | | JULIANN SILVA OF CARE | [facility] | [address] | | | TESTS | | | [...] MARQUAM | [address] | [place], [place] | | | JULIANN SILVA OF [facility] | [address] | [address] | | | TESTS | | | [...] BLUAM | [address] | [place], [place] | | | JULIANN SILVA OF CARE | [address] | [address] | | | TESTS | | | [...] RODGERS | [address] | [place], [place] | | | JULIANN SILVA OF CARE | [address] | [address] | | | TESTS | | | [...] | Specimen | + + | Blood - Blood | | (substance) | + + + + + | Narrative | Performed At | + + + | Immature Granulocytes (IG) include metamyelocytes, myelocytes | [facility] | | and promyelocytes. Bands are not included in the IG count. Bands are | LABORATORY | | included in the neutrophil count. | SERVICES, CORE | + + + + + + + + | Performing | Address | City/State/Zipcode | Phone Number | | Organization | | | | + + + + + | [facility] | [address] [facility] [facility] [address] | [place] [address] | | | SERVICES, CORE | TABITHA [...] | | | LABORATORY | | | SALVADOREAN | | | SERVICES, | | | [...] | Specimen | + + | Blood - Blood | | (substance) | + + + + + | Narrative | Performed At | + + + | Adult glucose reference range change effective 7-12-17. GFR is | [facility] | | estimated using the MDRD equation recommended by the National Kidney | LABORATORY | | Disease Education Program. Estimated GFR Interpretive Information: | SERVICES, CORE | | <60 mL/min/1.73 sq m Chronic Kidney Disease | | | <15 mL/min/1.73 sq m Kidney Failure Estimated | | | GFR greater that 60 mL/min/1.73 sq m is of limited clinical value. | | | The MDRD equation is not valid in the following situations: - | | | Patients under 18 years of age - Severe malnutrition or obesity - | | | Vegetarian diet - Rapidly changing kidney function | | + + + + + + + + | Performing | Address | City/State/Zipcode | Phone Number | | Organization | | | | + + + + + | [facility] [employer] | [address] | [place] [address] | | | SERVICES, CORE | TABITHA [...] | Specimen | + + | Blood - Blood | | (substance) | + + + + + | Narrative | Performed At | + + + | INR Therapeutic ranges for full anticoagulation: INR for | [facility] | | Venous Thromboembolism (2.0 - 3.0) INR INR for | LABORATORY | | most patients with mech. valves (2.5 - 3.5) INR | SERVICES, CORE | + + + + + + + + | Performing | Address | City/State/Zipcode | Phone Number | | Organization | | | | + + + + + | [facility] | [address] | [place] [address] | | | SERVICES, CORE | TABITHA [...] | Specimen | + + | Blood - Blood | | (substance) | + + + + + + + | Performing | Address | City/State/Zipcode | Phone Number | | Organization | | | | + + + + + | [facility] | [address] | [place] [address] | | | SERVICES, CORE | PARK [...] | Specimen | + + | Blood - Blood | | (substance) | + + + + + + + | Performing | Address | City/State/Zipcode | Phone Number | | Organization | | | | + + + + + | [facility] | [address] | [place] [address] | | | ИРИНА ANTOINE | TABITHA [...] RODGERS | [address] | [place], [place] | | | [facility] | [address] | [address] | | | TESTS | | | [...] | | | LABORATORY | | | SALVADOREAN | | | SERVICES, | | | [...] | Specimen | + + | Blood - Blood | | (substance) | + + + + + | Narrative | Performed At | + + + | Adult glucose reference range change effective 7-17. GFR is | [facility] | | estimated using the MDRD equation recommended by the National Kidney | LABORATORY | | Disease Education Program. Estimated GFR Interpretive Information: | SERVICES, CORE | | <60 mL/min/1.73 sq m Chronic Kidney Disease | | | <15 mL/min/1.73 sq m Kidney Failure Estimated | | | GFR greater that 60 mL/min/1.73 sq m is of limited clinical value. | | | The MDRD equation is not valid in the following situations: - | | | Patients under 18 years of age - Severe malnutrition or obesity - | | | Vegetarian diet - Rapidly changing kidney function | | + + + + + + + + | Performing | Address | City/State/Zipcode | Phone Number | | Organization | | | | + + + + + | [facility] | [address] | [place] [address] | | | SERVICES, CORE | [address] | | | + + + + + 12 LEAD ECG (03/30/2017 5:46 PM PDT) + + + + + + | Component | Value | Ref Range | Performed | Pathologist | | | | | At | Signature | + + + + + + | VENTRICULAR | 99 | bpm | [facility] | | | RATE | | [...] + + + + + + | QTC-BAZETT | 437 | ms | [facility] DEPT [...] DEPT OF | [address] | [place], [place] | | | CARDIOLOGY | [address] | [address] | | + + + + + [...] | [facility] | [address] [facility] [address] | [place], [place] | | | [facility] | [address] | [address] | | | TESTS | | | [...] | | | LABORATORY | | | SALVADOREAN | | | SERVICES, | | | [...] | Specimen | + + | Blood - Blood | | (substance) | + + + + + | Narrative | Performed At | + + + | Adult glucose reference range change effective 7-17. Sample | [facility] | | hemolyzed. Results [...] | <60 mL/min/1.73 sq m Chronic Kidney Disease | | | <15 mL/min/1.73 sq m Kidney Failure Estimated | | | GFR greater that 60 mL/min/1.73 sq m is of limited clinical value. | | | The MDRD equation is not valid in the following situations: - | | | Patients under 18 years of age - Severe malnutrition or obesity - | | | Vegetarian diet - Rapidly changing kidney function | | + + + + + + + + | Performing | Address | City/State/Zipcode | Phone Number | | Organization | | | | + + + + + | [facility] | [address] | [place] [address] | | | SERVICES, CORE | PARK [...] | Specimen | + + | Blood - Blood | | (substance) | + + + + + + + | Performing | Address | City/State/Zipcode | Phone Number | | Organization | | | | + + + + + | [employer] | [address] | [place] [address] | | | SERVICES, CORE | TABITHA [...] + + | | + + + +---- + | Narrative | Per formed At | + +---- + | [facility] DEPT [facility] | | [facility] Adult Echocardiography Laboratory [address] | | [place], [place] [address] Ph: | | | Pt Name: RON MCKEON | | | Study Date/Time 03/30/2017 / 10:44:00 AMMRN: [id number] | | | Most recent prior: 03/19/17 #: [id number] | | | No. previous echos: 3DOB: 1955 61 years Heart | | | Rate: 70 bpmHeight: 68.0 in Blood | | | Pressure: 100/55 mm/HgWeight: 197.0 lb | | | Gender: MBSA: 2.03 m2 | | | Order ID: [id number] Postal Service Clerk: Shahab Sutton | | | RDCSSonographer 2: Karly Gayle Referring Provider: Ariana | | | [facility] Location: 11KModalities Performed: 2D, Color flow, | [...] Tn, | | | patient's significant recent MA, we activated the laborer yard. Patient | | | history has been obtained from the EHR Transthoracic Echocardiographic | | | Report | | | + | | | ---------+Final Impressions: | | | | | | | | | | | | | | | 1. The left ventricular cavity size is normal. | | | 2. Visually estimated left ventricular | | | ejection fraction is 30 - 35%. 3. Left ventricular | | | systolic thickening is segmentally abnormal (see | | | comments below). | | | 4. Right ventricular size, | | | thickness and function are normal. 5. Compared | | | to the most recent exam dated, 03/19/17, the LVEF has improved | | | slightly. Segmental wall motion abnormalities remain. | | | | | | | | | + | | | + Description of Findings: Cardiac Rhythm: Normal sinus | | | rhythm.Left Ventricle: The left ventricular cavity size is normal. | | | Visually estimated left ventricular ejection fraction is 30 - 35%. The | | | LV ejection fraction is severely decreased.Due to poor endocardial | | | definition, ultrasound contrast was used (Lumason).Left Ventricular | | | Wall Motion: The entire apex and entire anterior septum are akinetic. | | | The basal and mid inferior septum and mid anterior segment are | | | hypokinetic. All remaining scored segments are normal. Left | | | ventricular systolic thickening is segmentally abnormal.Atria: Left | | | atrial size [...] | | | 2D NL Values Aortic MitralLVID(d) 5.35 | | | (3.5-5.7cm) Max Rohan 1.47 Peak E 0.56 cm | | | m/s m/sLVID(s) | | | 3.56 Mean grad 5.0 Peak A 0.99 | | | cm mmHg | | | m/sIVS(d) 0.78 (0.6-1.1cm) LVOT Rohan 1.26 E/A Ratio | | | 0.56 cm | | | m/sLVPW(d) 0.93 (0.6-1.1cm) LVOT Diam 2.10 TDI (E/e') 5.1 | | | cm cmLA A/Ps 2D | | | 4.10 (2.7-3.9cm) Tricuspid Pulmonic cm | | | TR Vmax 2.69 PV Vmax 1.3LA vol A/L 51.7 | | | (40-73ml) m/s m/sBP | | | mlLA vol A/L 25.5 (16-34) Aorta: | | | Index:index ml/m2 Ao Sinus 3.40 | | | (2.1-3.5cm) 16.7LA vol MOD 49.1 (40-73ml) cm | | | mm/m2BP mlLA vol MOD 24.2 | | | (16-34)index ml/m2 Evaluation of chamber size and geometry is | | | accomplished through the incorporation of linear, volumetric, and | | | indexed values Wall Scoring: Report electronically signed by: | | | [id number] Jordon Neville MD (03/30/2017, 2:04:56 PM) Final | | |LVPW(d) 0.93 (0.6-1.1cm) LVOT Diam 2.10 TDI (E/e') 5.1 | | | cm cm | | |LA A/Ps 2D 4.10 (2.7-3.9cm) Tricuspid Pulmonic | | | cm TR Vmax 2.69 PV Vmax 1.3 | | |LA vol A/L 51.7 (40-73ml) m/s m/s | | |BP ml | | |LA vol A/L 25.5 (16-34) Aorta: Index: | | |index ml/m2 Ao Sinus 3.40 (2.1-3.5cm) 16.7 | | |LA vol MOD 49.1 (40-73ml) cm mm/m2 | | |BP ml | | |LA vol MOD 24.2 (16-34) | | |index ml/m2 | | | | | |Evaluation of chamber size and geometry is accomplished through the incorporation of | | |linear, volumetric, and indexed values | | | | | |Wall Scoring: | | | | | | | | |Report electronically signed by: [id number] Jordon [place] MD (03/30/2017, 2:04:56 PM) | | | | | | | | | | | | Final | | + +---- + + + | Procedure Note | + + | Interface, Cardiology Results - 03/30/2017 2:[address] [facility] | | [facility] Echocardiography Laboratory [address] [place] [address] | | [place], [place] [address] Pt Name: RON Chaudhary | | MIKE Study Date/Time 03/30/2017 / 10:44:00 AMMRN: [id number] Most | | recent prior: 03/19/17cc #: [id number] No. previous echos: 3DOB: | | 1955 61 years Heart Rate: 70 bpmHeight: 68.0 in Blood | | Pressure: 100/55 mm/HgWeight: 197.0 lb Gender: MBSA: | | 2.03 m2 Order ID: [id number] Postal Service Clerk: Shahab Sutton | | RDCSSonographer 2: Karly Major Provider: Ariana BosePatient Location: | | 11KModalities Performed: 2D, Color [...] elevated Tn, | | patient's significant recent MA, we activated the laborer yard. Patient history has been | | obtained [...] Scoring: Report | | electronically signed by: [id number] Jordon [place] MD (03/30/2017, 2:04:56 PM) Final [...] | | | |Report electronically signed by: [id number] Jordon [place] MD (03/30/2017, 2:04:56 PM) | | | | | | | | Final | + + + + + + + | Performing | Address | City/State/Zipcode | Phone Number | | Organization | | | | + + + + + | [facility] | [address] | [place], [place] | | | CARDIOLOGY | [address] | [address] | | + + + + + [...] [facility] | [address] | [place], [place] | | | [facility]ARE | [address] | [address] | | | TESTS | | | [...] | Specimen | + + | Blood - Blood | | (substance) | + + + + + + + | Performing | Address | City/State/Zipcode | Phone Number | | Organization | | | | + + + + + | [facility] | [address] | [place] [address] | | | SERVICES, CORE | TABITHA [...] | Specimen | + + | Blood - Blood | | (substance) | + + + + + + + | Performing | Address | City/State/Zipcode | Phone Number | | Organization | | | | + + + + + | [facility] | [address] | [place], [place] | | | J[facility]ANN S[facility] OF [facility] | [address] | [address] | | | TESTS | | | [...] + + + + + + | QTC-BAZETT | 430 | ms | [facility] DEPT [...] + | [facility] | [address] [facility] [facility] | [place], [place] | | | CARDIOLOGY | [address] | [address] | | + + + + + [...] | | | LABORATORY | | | SALVADOREAN | | | SERVICES, | | | [...] | Specimen | + + | Blood - Blood | | (substance) | + + + + + | [...] | <60 mL/min/1.73 sq m Chronic Kidney Disease | | | <15 mL/min/1.73 sq m Kidney Failure Estimated | | | GFR greater that 60 mL/min/1.73 sq m is of limited clinical value. | | | The MDRD equation is not valid in the following situations: - | | | Patients under 18 years of age - Severe malnutrition or obesity - | | | Vegetarian diet - Rapidly changing kidney function | | + + + + + + + + | Performing | Address | City/State/Zipcode | Phone Number | | Organization | | | | + + + + + | [facility] | [address] [facility] [facility] | [place] [address] | | | SERVICES, CORE | TABITHA [...] | Specimen | + + | Blood - Blood | | (substance) | + + + + + | Narrative | Performed At | + + + | APTT Therapeutic Range: (75 - | [facility] | | 120) sec Heparin levels of 0.35 - 0.7 U/mL | LABORATORY | | | ИРИНА ANTOINE | + + + + + + + + | Performing | Address | City/State/Zipcode | Phone Number | | Organization | | | | + + + + + | [facility] | [address] | [place] [address] | | | SERVICES, ИРИНА | TABITHA [...] | Specimen | + + | Blood - Blood | | (substance) | + + + + + + + | Performing | Address | City/State/Zipcode | Phone Number | | Organization | | | | + + + + + | [facility] | [address] | [place] [address] | | | SERVICES, CORE | [address] | | | + + + + + 12 LEAD ECG (03/30/2017 2:47 AM PDT) + + + + + + | Component | Value | Ref Range | Performed | Pathologist | | | | | At | Signature | + + + + + + | VENTRICULAR | 93 | bpm | [facility] | | | RATE | | [...] + + + + + + | QTC-BAZETT | 428 | ms | [facility] DEPT [...] + + | [facility] | [address] | [place], [place] | | | CARDIOLOGY | [address] | [address] | | + + + + + [...] + + + + + + | QTC-KIRBY | 448 | ms | [facility] DEPT [...] DEPT OF | [address] | [place], [place] | | | CARDIOLOGY | [address] | [address] | | + + + + + [...] | Specimen | + + | Blood - Blood | | (substance) | + + + + + | Narrative | Performed At | + + + | Immature Granulocytes (IG) include metamyelocytes, myelocytes | [facility] | | and promyelocytes. Bands are not included in the IG count. Bands are | LABORATORY | | included in the neutrophil count. | SERVICES, CORE | + + + + + + + + | Performing | Address | City/State/Zipcode | Phone Number | | Organization | | | | + + + + + | [facility] | [address] | [place] [address] | | | SERVICES, CORE | PARK [...] | Specimen | + + | Blood - Blood | | (substance) | + + + + + | Narrative | Performed At | + + + | INR Therapeutic ranges for full anticoagulation: INR for | [facility] | | Venous Thromboembolism (2.0 - 3.0) INR INR for | LABORATORY | | most patients with mech. valves (2.5 - 3.5) INR | SERVICES, CORE | + + + + + + + + | Performing | Address | City/State/Zipcode | Phone Number | | Organization | | | | + + + + + | [facility] | [address] | [place] [address] | | | SERVICES, CORE | TABITH[address] [...] | Specimen | + + | Blood - Blood | | (substance) | + + + + + + + | Performing | Address | City/State/Zipcode | Phone Number | | Organization | | | | + + + + + | [facility] | [address] | [place] [address] | | | SERVICES, CORE | TABITHA [...] | Specimen | + + | Blood - Blood | | (substance) | + + + + + + + | Performing | Address | City/State/Zipcode | Phone Number | | Organization | | | | + + + + + | [facility] | [address] [facility] | [place] [address] | | | ARASH, ИРИНА | TABITHA [...] RODGERS | [address] | [place], [place] | | | JUL[facility]ANN S[facility]VA OF [facility] | [address] | [address] | | | TESTS | | | [...] | Specimen | + + | Blood - Blood | | (substance) | + + + + + + + | Performing | Address | City/State/Zipcode | Phone Number | | Organization | | | | + + + + + | [facility] | [address] | [place] [address] | | | SERVICES, CORE | PARK [...] + + + + + + | QTC-KIRBY | 429 | ms | [facility] DEPT [...] + + + + + | [facility] | [address] | [place], [place] | | | CARDIOLOGY | [address] | [address] | | + + + + + CAPILLARY BLOOD GLUCOSE (NO CHG), POC (03/29/2017 8:16 PM PDT) + +---------+ + + + | Component | Value | Ref Range | Performed | Pathologist | | | | | At | Signature | + +---------+ + + + | BLOOD | 105 (H) | 70 - 99 mg/dL | [facility] - | | | GLUCOSE, | | [...] R[facility] | [address] | [place], [place] | | | JULIANN SILVA OF CARE | [facility] | [address] | | | TESTS | | | [...] MARIA | [address] | [place], [place] | | | JULIANN SILVA OF CARE | [address] | [address] | | | TESTS | | | [...] | Specimen | + + | Blood - Blood | | (substance) | + + + + + | Narrative | Performed At | + + + | Heparin, Either STD/LMW - Therapeutic Ranges: Heparin, | [facility] | | Unfractionated: 0.35 - 0.70 U/mL Enoxaparin, LMWH: 0.70 | LABORATORY | | - 1.20 U/mL Dalteparin, LMWH: 0.70 - 1.20 U/mL | SERVICES, CORE | | Tinzaparin, LMWH: Therapeutic range not established. | | | Preliminary studies suggest range | | | similar to dalteparin. Clinical | | | correlation required. | | | Heparin levels may be unreliable for: | | | Total bilirubin >28.8 mg/dL | | | Triglycerides >690 mg/dL | | | or Moderate to Gross Hemolysis | | + + + + + + + + | Performing | Address | City/State/Zipcode | Phone Number | | Organization | | | | + + + + + | [facility] | [address] | [place] [address] | | | SERVICES, CORE | PARK [...] MARIA | [address] | [place], [place] | | | [facility] | [address] | [address] | | | TESTS | | | [...] | Specimen | + + | Blood - Blood | | (substance) | + + + + + | Narrative | Performed At | + + + | Immature Granulocytes (IG) include metamyelocytes, myelocytes | [facility] | | and promyelocytes. Bands are not included in the IG count. Bands are | LABORATORY | | included in the neutrophil count. | SERVICES, CORE | + + + + + + + + | Performing | Address | City/State/Zipcode | Phone Number | | Organization | | | | + + + + + | [facility] | [address] [facility] | [place] [address] | | | SERVICES, CORE | TABITH[address] [...] | | | LABORATORY | | | SALVADOREAN | | | SERVICES, | | | [...] | Specimen | + + | Blood - Blood | | (substance) | + + + + + | Narrative | Performed At | + + + | Adult glucose reference range change effective 03-18-. GFR is | [facility] | | estimated using the MDRD equation recommended by the National Kidney | LABORATORY | | Disease Education Program. Estimated GFR Interpretive Information: | SERVICES, CORE | | <60 mL/min/1.73 sq m Chronic Kidney Disease | | | <15 mL/min/1.73 sq m Kidney Failure Estimated | | | GFR greater that 60 mL/min/1.73 sq m is of limited clinical value. | | | The MDRD equation is not valid in the following situations: - | | | Patients under 18 years of age - Severe malnutrition or obesity - | | | Vegetarian diet - Rapidly changing kidney function | | + + + + + + + + | Performing | Address | City/State/Zipcode | Phone Number | | Organization | | | | + + + + + | [facility] | [address] | [place] [address] | | | SERVICES, CORE | PARK [...] (H) | 0.90 - 1.20 INR | [facility] | | | | | | LABORATORY | | | | | | SERVICES, | | | | | | CORE | | + + + + + + + + | Specimen | + + | Blood - Blood | | (substance) | + + + + + | Narrative | Performed At | + + + | INR Therapeutic ranges for full anticoagulation: INR for | [facility] | | Venous Thromboembolism (2.0 - 3.0) INR INR for | LABORATORY | | most patients with mech. valves (2.5 - 3.5) INR | SERVICES, CORE | + + + + + + + + | Performing | Address | City/State/Zipcode | Phone Number | | Organization | | | | + + + + + | [facility] | [address] | [place] [address] | | | SERVICES, CORE | PARK [...] | Specimen | + + | Blood - Blood | | (substance) | + + + + + + + | Performing | Address | City/State/Zipcode | Phone Number | | Organization | | | | + + + + + | [facility] | [address] | [place] [address] | | | SERVICES, CORE | TABITHA [...] | Specimen | + + | Blood - Blood | | (substance) | + + + + + | [...] - Therapeutic Ranges: Heparin, Unfractionated: 0.35 - 0.70 | | | U/mL Enoxaparin, LMWH: 0.70 - 1.20 U/mL Dalteparin, | | | LMWH: 0.70 - 1.20 U/mL Tinzaparin, LMWH: | | | Therapeutic range not established. | | | Preliminary studies suggest range | | | similar to dalteparin. Clinical | | | correlation required. Heparin levels may be unreliable | | | for: Total bilirubin >28.8 | | | mg/dL Triglycerides >690 | | | mg/dL or Moderate to Gross | | | Hemolysis | | + + + + + + + + | Performing | Address | City/State/Zipcode | Phone Number | | Organization | | | | + + + + + | [facility] [employer] | [address] | [place] [address] | | | ИРИНА ANTOINE | TABITHA [...] | Specimen | + + | Blood - Blood | | (substance) | + + + + + | [...] - Therapeutic Ranges: Heparin, Unfractionated: 0.35 - 0.70 | | | U/mL Enoxaparin, LMWH: 0.70 - 1.20 U/mL Dalteparin, | | | LMWH: 0.70 - 1.20 U/mL Tinzaparin, LMWH: | | | Therapeutic range not established. | | | Preliminary studies suggest range | | | similar to dalteparin. Clinical | | | correlation required. Heparin levels may be unreliable | | | for: Total bilirubin >28.8 | | | mg/dL Triglycerides >690 | | | mg/dL or Moderate to Gross | | | Hemolysis | | + + + + + + + + | Performing | Address | City/State/Zipcode | Phone Number | | Organization | | | | + + + + + | [facility] | [address] | [place] [address] | | | ИРИНА ANTOINE | TABITHA [...] (H) | 70 - 99 mg/dL | [facility] - | | | GLUCOSE, | | [...] [facility] | [address] | [place], [place] | | | [facility] | [address] | [address] | | | TESTS | | | [...] [facility] | [address] | [place], [place] | | | JULIANN SILVA OF [place] | [facility] | [address] | | | TESTS | | | [...] | | | LABORATORY | | | SALVADOREAN | | | SERVICES, | | | [...] | Specimen | + + | Blood - Blood | | (substance) | + + + + + | Narrative | Performed At | + + + | Adult glucose reference range change effective 7-12-17. GFR is | [facility] | | estimated using the MDRD equation recommended by the National Kidney | LABORATORY | | Disease Education Program. Estimated GFR Interpretive Information: | SERVICES, CORE | | <60 mL/min/1.73 sq m Chronic Kidney Disease | | | <15 mL/min/1.73 sq m Kidney Failure Estimated | | | GFR greater that 60 mL/min/1.73 sq m is of limited clinical value. | | | The MDRD equation is not valid in the following situations: - | | | Patients under 18 years of age - Severe malnutrition or obesity - | | | Vegetarian diet - Rapidly changing kidney function | | + + + + + + + + | Performing | Address | City/State/Zipcode | Phone Number | | Organization | | | | + + + + + | [facility] | [address] | [place] [address] | | | SERVICES, CORE | TABITHA [...] | Specimen | + + | Blood - Blood | | (substance) | + + + + + | [...] - Therapeutic Ranges: Heparin, Unfractionated: 0.35 - 0.70 | | | U/mL Enoxaparin, LMWH: 0.70 - 1.20 U/mL Dalteparin, | | | LMWH: 0.70 - 1.20 U/mL Tinzaparin, LMWH: | | | Therapeutic range not established. | | | Preliminary studies suggest range | | | similar to dalteparin. Clinical | | | correlation required. Heparin levels may be unreliable | | | for: Total bilirubin >28.8 | | | mg/dL Triglycerides >690 | | | mg/dL or Moderate to Gross | | | Hemolysis | | + + + + + + + + | Performing | Address | City/State/Zipcode | Phone Number | | Organization | | | | + + + + + | [facility] [employer] | [address] | [place] [address] | | | ИРИНА ANTOINE | TABITHA [...] | | | LABORATORY | | | SALVADOREAN | | | SERVICES, | | | [...] | Specimen | + + | Blood - Blood | | (substance) | + + + + + | [...] | <60 mL/min/1.73 sq m Chronic Kidney Disease | | | <15 mL/min/1.73 sq m Kidney Failure Estimated | | | GFR greater that 60 mL/min/1.73 sq m is of limited clinical value. | | | The MDRD equation is not valid in the following situations: - | | | Patients under 18 years of age - Severe malnutrition or obesity - | | | Vegetarian diet - Rapidly changing kidney function | | + + + + + + + + | Performing | Address | City/State/Zipcode | Phone Number | | Organization | | | | + + + + + | [facility] | [address] [facility] | [place] [address] | | | SERVICES, ИРИНА | TABITHA [...] 93 | 70 - 99 mg/dL | [facility] [...] - [facility] | [address] | [place], [place] | | | JULIANN SIL[facility] CARE | [facility] | [address] | | | TESTS | | | [...] (H) | 70 - 99 mg/dL | [facility] - | | | GLUCOSE, | | [...] [facility] | [address] | [place], [place] | | | JULIANN SILVA OF [place] | [address] | [address] | | | TESTS | | | [...] | Specimen | + + | Blood - Blood | | (substance) | + + + + + | Narrative | Performed At | + + + | Immature Granulocytes (IG) include metamyelocytes, myelocytes | [facility] | | and promyelocytes. Bands are not included in the IG count. Bands are | LABORATORY | | included in the neutrophil count. | SERVICES, CORE | + + + + + + + + | Performing | Address | City/State/Zipcode | Phone Number | | Organization | | | | + + + + + | [facility] | [address] | [place] [address] | | | SERVICES, CORE | TABITHA [...] | | | LABORATORY | | | SALVADOREAN | | | SERVICES, | | | [...] | Specimen | + + | Blood - Blood | | (substance) | + + + + + | Narrative | Performed At | + + + | Adult glucose reference range change effective 7-12-17. GFR is | [facility] | | estimated using the MDRD equation recommended by the National Kidney | LABORATORY | | Disease Education Program. Estimated GFR Interpretive Information: | SERVICES, CORE | | <60 mL/min/1.73 sq m Chronic Kidney Disease | | | <15 mL/min/1.73 sq m Kidney Failure Estimated | | | GFR greater that 60 mL/min/1.73 sq m is of limited clinical value. | | | The MDRD equation is not valid in the following situations: - | | | Patients under 18 years of age - Severe malnutrition or obesity - | | | Vegetarian diet - Rapidly changing kidney function | | + + + + + + + + | Performing | Address | City/State/Zipcode | Phone Number | | Organization | | | | + + + + + | [facility] | [address] | [place] [address] | | | SERVICES, CORE | PARK [...] | Specimen | + + | Blood - Blood | | (substance) | + + + + + | Narrative | Performed At | + + + | Heparin, Either STD/LMW - Therapeutic Ranges: Heparin, | [facility] | | Unfractionated: 0.35 - 0.70 U/mL Enoxaparin, LMWH: 0.70 | LABORATORY | | - 1.20 U/mL Dalteparin, LMWH: 0.70 - 1.20 U/mL | SERVICES, CORE | | Tinzaparin, LMWH: Therapeutic range not established. | | | Preliminary studies suggest range | | | similar to dalteparin. Clinical | | | correlation required. | | | Heparin levels may be unreliable for: | | | Total bilirubin >28.8 mg/dL | | | Triglycerides >690 mg/dL | | | or Moderate to Gross Hemolysis | | + + + + + + + + | Performing | Address | City/State/Zipcode | Phone Number | | Organization | | | | + + + + + | [facility] | [address] | [place] [address] | | | SERVICES, CORE | PARK [...] | Specimen | + + | Blood - Blood | | (substance) | + + + + + | Narrative | Performed At | + + + | INR Therapeutic ranges for full anticoagulation: INR for | [facility] | | Venous Thromboembolism (2.0 - 3.0) INR INR for | LABORATORY | | most patients with mech. valves (2.5 - 3.5) INR | SERVICES, CORE | + + + + + + + + | Performing | Address | City/State/Zipcode | Phone Number | | Organization | | | | + + + + + | [facility] | [address] | [place] [address] | | | SERVICES, CORE | TABITHA [...] 2.5 mg/dL | [facility] | | | FEI | | | LABORATORY | | | | | | ARASH, | | | | | | CORE | | + +---------+ + + + + + | Specimen | + + | Blood - Blood | | (substance) | + + + + + + + | Performing | Address | City/State/Zipcode | Phone Number | | Organization | | | | + + + + + | [facility] | [address] | [place] [address] | | | ARASH, ИРИНА | TABITHA [...] + + | [facility] | [address] | [place], [place] | | | JULIANN SILVA OF [facility] | [address] | [address] | | | TESTS | | | [...] [facility] | [address] | [place], [place] | | | JUL[facility] S[facility] CARE | [address] | [address] | | | TESTS | | | [...] [facility] | [address] | [place], [place] | | | JUL[facility]ANN S[facility] CARE | [address] | [address] | | | TESTS | | | [...] - [facility] | [address] | [place], [place] | | | [facility] | [facility] | [address] | | | TESTS | | | [...] | Specimen | + + | Blood - Blood | | (substance) | + + + + + | Narrative | Performed At | + + + | Immature Granulocytes (IG) include metamyelocytes, myelocytes | [facility] | | and promyelocytes. Bands are not included in the IG count. Bands are | LABORATORY | | included in the neutrophil count. | SERVICES, CORE | + + + + + + + + | Performing | Address | City/State/Zipcode | Phone Number | | Organization | | | | + + + + + | [facility] | [address] | [place] [address] | | | SERVICES, CORE | PARK [...] | Specimen | + + | Blood - Blood | | (substance) | + + + + + | [...] - Therapeutic Ranges: Heparin, Unfractionated: 0.35 - 0.70 | | | U/mL Enoxaparin, LMWH: 0.70 - 1.20 U/mL Dalteparin, | | | LMWH: 0.70 - 1.20 U/mL Tinzaparin, LMWH: | | | Therapeutic range not established. | | | Preliminary studies suggest range | | | similar to dalteparin. Clinical | | | correlation required. Heparin levels may be unreliable | | | for: Total bilirubin >28.8 | | | mg/dL Triglycerides >690 | | | mg/dL or Moderate to Gross | | | Hemolysis | | + + + + + + + + | Performing | Address | City/State/Zipcode | Phone Number | | Organization | | | | + + + + + | [facility] | [address] | [place] [address] | | | SERVICES, CORE | TABITHA [...] | | | LABORATORY | | | SALVADOREAN | | | SERVICES, | | | [...] | Specimen | + + | Blood - Blood | | (substance) | + + + + + | Narrative | Performed At | + + + | Adult glucose reference range change effective 7-12-17. GFR is | [facility] | | estimated using the MDRD equation recommended by the National Kidney | LABORATORY | | Disease Education Program. Estimated GFR Interpretive Information: | SERVICES, CORE | | <60 mL/min/1.73 sq m Chronic Kidney Disease | | | <15 mL/min/1.73 sq m Kidney Failure Estimated | | | GFR greater that 60 mL/min/1.73 sq m is of limited clinical value. | | | The MDRD equation is not valid in the following situations: - | | | Patients under 18 years of age - Severe malnutrition or obesity - | | | Vegetarian diet - Rapidly changing kidney function | | + + + + + + + + | Performing | Address | City/State/Zipcode | Phone Number | | Organization | | | | + + + + + | [facility] | [address] [facility] | [place] [address] | | | SERVICES, CORE | PARK [...] | Specimen | + + | Blood - Blood | | (substance) | + + + + + | [...] ranges for full anticoagulation: INR for Venous Thromboembolism | | | (2.0 - 3.0) INR INR for most patients with mech. | | | valves (2.5 - 3.5) INR | | + + + + + + + + | Performing | Address | City/State/Zipcode | Phone Number | | Organization | | | | + + + + + | [facility] | [address] | [place] [address] | | | SERVICES, CORE | TABITHA [...] | Specimen | + + | Blood - Blood | | (substance) | + + + + + + + | Performing | Address | City/State/Zipcode | Phone Number | | Organization | | | | + + + + + | [facility] | [address] | [place] [address] | | | SERVICES, CORE | TABITHA [...] [facility] | [address] | [place], [place] | | | JULIANN SILVA OF ALEX[facility] | [facility] | [address] | | | TESTS | | | [...] [facility] | [address] | [place], [place] | | | [facility]ARE | [facility] | [address] | | | TESTS | | | [...] | | | LABORATORY | | | SALVADOREAN | | | SERVICES, | | | [...] | Specimen | + + | Blood - Blood | | (substance) | + + + + + | Narrative | Performed At | + + + | Adult glucose reference range change effective 03-18-17. Sample | [facility] | | hemolyzed. Results [...] | <60 mL/min/1.73 sq m Chronic Kidney Disease | | | <15 mL/min/1.73 sq m Kidney Failure Estimated | | | GFR greater that 60 mL/min/1.73 sq m is of limited clinical value. | | | The MDRD equation is not valid in the following situations: - | | | Patients under 18 years of age - Severe malnutrition or obesity - | | | Vegetarian diet - Rapidly changing kidney function | | + + + + + + + + | Performing | Address | City/State/Zipcode | Phone Number | | Organization | | | | + + + + + | [facility] | [address] | [place] [address] | | | SERVICES, CORE | TABITHA [...] [facility] | [address] | [place], [place] | | | JULIANN SILVA OF [facility] | [address] | [address] | | | TESTS | | | | + + + + + RAINBOW HOLD TUBE - GREEN TOP (03/26/2017 3:50 AM PDT) + + | Specimen | + + | Blood - Blood | | (substance) | + + + + + + + | Performing | Address | City/State/Zipcode | Phone Number | | Organization | | | | + + + + + | [facility] | [address] | [place] [address] | | | SERVICES, CORE | PARK [...] | Specimen | + + | Blood - Blood | | (substance) | + + + + + | Narrative | Performed At | + + + | Immature Granulocytes (IG) include metamyelocytes, myelocytes | [facility] | | and promyelocytes. Bands are not included in the IG count. Bands are | LABORATORY | | included in the neutrophil count. | SERVICES, CORE | + + + + + + + + | Performing | Address | City/State/Zipcode | Phone Number | | Organization | | | | + + + + + | [facility] | [address] | [place] [address] | | | SERVICES, CORE | PARK [...] | Specimen | + + | Blood - Blood | | (substance) | + + + + + | [...] - Therapeutic Ranges: Heparin, Unfractionated: 0.35 - 0.70 | | | U/mL Enoxaparin, LMWH: 0.70 - 1.20 U/mL Dalteparin, | | | LMWH: 0.70 - 1.20 U/mL Tinzaparin, LMWH: | | | Therapeutic range not established. | | | Preliminary studies suggest range | | | similar to dalteparin. Clinical | | | correlation required. Heparin levels may be unreliable | | | for: Total bilirubin >28.8 | | | mg/dL Triglycerides >690 | | | mg/dL or Moderate to Gross | | | Hemolysis | | + + + + + + + + | Performing | Address | City/State/Zipcode | Phone Number | | Organization | | | | + + + + + | [facility] | [address] | [place] [address] | | | SERVICES, CORE | PARK [...] | | | LABORATORY | | | SALVADOREAN | | | SERVICES, | | | [...] | Specimen | + + | Blood - Blood | | (substance) | + + + + + | Narrative | Performed At | + + + | Adult glucose reference range change effective 712-17. GFR is | [facility] | | estimated using the MDRD equation recommended by the National Kidney | LABORATORY | | Disease Education Program. Estimated GFR Interpretive Information: | SERVICES, CORE | | <60 mL/min/1.73 sq m Chronic Kidney Disease | | | <15 mL/min/1.73 sq m Kidney Failure Estimated | | | GFR greater that 60 mL/min/1.73 sq m is of limited clinical value. | | | The MDRD equation is not valid in the following situations: - | | | Patients under 18 years of age - Severe malnutrition or obesity - | | | Vegetarian diet - Rapidly changing kidney function | | + + + + + + + + | Performing | Address | City/State/Zipcode | Phone Number | | Organization | | | | + + + + + | [facility] | [address] | [place] [address] | | | SERVICES, CORE | PARK [...] | Specimen | + + | Blood - Blood | | (substance) | + + + + + | [...] ranges for full anticoagulation: INR for Venous Thromboembolism | | | (2.0 - 3.0) INR INR for most patients with mech. | | | valves (2.5 - 3.5) INR | | + + + + + + + + | Performing | Address | City/State/Zipcode | Phone Number | | Organization | | | | + + + + + | [facility] | [address] | [place] [address] | | | SERVICES, CORE | PARK [...] | Specimen | + + | Blood - Blood | | (substance) | + + + + + + + | Performing | Address | City/State/Zipcode | Phone Number | | Organization | | | | + + + + + | [facility] | [address] | [place] [address] | | | SERVICES, CORE | PARK [...] SERVICES, | | | | <5.7% - Normal | | SPECIAL IMM | | | | 5.7-6.4% - Consistent | | + COAG | | | | with pre-diabetes | | | | | | >6.4% - Consistent | | | | | | with diabetes | | | | | | | | | | + + + + + + + + | Specimen | + + | Blood - Blood | | (substance) | + + + + + | Narrative | Performed At | + + + | Alternate forms of testing such as fructosamine should be | [facility] | | considered for monitoring halfway glycemic control in patients with: | LABORATORY [...] [facility] | [address] | [place] [address] | | | SERVICES, SPECIAL | TABITHA [...] | + +---------+ + + + | JESSICAI D CMNT | No Hemo | | [facility] | | | | | | LABORATORY | | | | | | SERVICES, | | | | | | CORE | | + +---------+ + + + + + | Specimen | + + | Blood - Blood | | (substance) | + + + + + + + | Performing | Address | City/State/Zipcode | Phone Number | | Organization | | | | + + + + + | [facility] | [address] | [place] [address] | | | SERVICES, CORE | TABITHA [...] [facility] | [address] | [place] | | | JULIANN SILVA OF CARE | [address] | [address] | | | TESTS | | | [...] [facility] | [address] | [place], [place] | | | JULIANN SILVA OF [facility] | [facility] | [address] | | | TESTS | | | [...] | Specimen | + + | Urine - Urine | | (substance) | + + + + + + + | Performing | Address | City/State/Zipcode | Phone Number | | Organization | | | | + + + + + | [facility] | [address] | [place] [address] | | | SERVICES, CORE | [address] | | | + + + + + UA, DIPSTICK ONLY (03/25/2017 6:23 PM PDT) + + + [...] | [facility] | | | GRAVITY | [place] performed by | | LABORATORY | | | | refractometry | | SERVICES, | | | | | | CORE | | + + + + + + + + | Specimen | + + | Urine - Urine | | (substance) | + + + + + + + | Performing | Address | City/State/Zipcode | Phone Number | | Organization | | | | + + + + + | [facility] | [address] | [place] [address] | | | SERVICES, ИРИНА | TABITHA [...] | Specimen | + + | Blood - Blood | | (substance) | + + + + + + + | Performing | Address | City/State/Zipcode | Phone Number | | Organization | | | | + + + + + | [facility] | [address] | [place] [address] | | | [place] | | | | + + + [...] [facility] | [address] | [place], [place] | | | [facility] | [address] | [address] | | | TESTS | | | [...] [facility] | [address] | [place], [place] | | | [facility] | [address] | [address] | | | TESTS | | | [...] | Specimen | + + | Blood - Blood | | (substance) | + + + + + | [...] - Therapeutic Ranges: Heparin, Unfractionated: 0.35 - 0.70 | | | U/mL Enoxaparin, LMWH: 0.70 - 1.20 U/mL Dalteparin, | | | LMWH: 0.70 - 1.20 U/mL Tinzaparin, LMWH: | | | Therapeutic range not established. | | | Preliminary studies suggest range | | | similar to dalteparin. Clinical | | | correlation required. Heparin levels may be unreliable | | | for: Total bilirubin >28.8 | | | mg/dL Triglycerides >690 | | | mg/dL or Moderate to Gross | | | Hemolysis | | + + + + + + + + | Performing | Address | City/State/Zipcode | Phone Number | | Organization | | | | + + + + + | [facility] | [address] | [place] [address] | | | ARASH, CORE | PARK [...] | Specimen | + + | Blood - Blood | | (substance) | + + + + + | Narrative | Performed At | + + + | Immature Granulocytes (IG) include metamyelocytes, myelocytes | [facility] | | and promyelocytes. Bands are not included in the IG count. Bands are | LABORATORY | | included in the neutrophil count. | SERVICES, CORE | + + + + + + + + | Performing | Address | City/State/Zipcode | Phone Number | | Organization | | | | + + + + + | [facility] | [address] | [place] [address] | | | SERVICES, CORE | TABITHA [...] (H) | 0.90 - 1.20 INR | [facility] | | | | | | LABORATORY | | | | | | SERVICES, | | | | | | CORE | | + + + + + + + + | Specimen | + + | Blood - Blood | | (substance) | + + + + + | Narrative | Performed At | + + + | INR Therapeutic ranges for full anticoagulation: INR for | [facility] | | Venous Thromboembolism (2.0 - 3.0) INR INR for | LABORATORY | | most patients with mech. valves (2.5 - 3.5) INR | SERVICES, CORE | + + + + + + + + | Performing | Address | City/State/Zipcode | Phone Number | | Organization | | | | + + + + + | [facility] | [address] | [place] [address] | | | SERVICES, CORE | [address] | | | + + + + + MAGNESIUM, PLASMA (03/25/2017 12:52 AM PDT) + +---------+ + + + | Component | Value | Ref Range | Performed | Pathologist | | | | | At | Signature | + +---------+ + + + | MAGNESIUM,P | 3.3 (H) | 1.8 - 2.5 mg/dL | [facility] | | | [facility] | | | LABORATORY | | | | | | SERVICES, | | | | | | CORE | | + +---------+ + + + + + | Specimen | + + | Blood - Blood | | (substance) | + + + + + + + | Performing | Address | City/State/Zipcode | Phone Number | | Organization | | | | + + + + + | [facility] | [address] | [place] [address] | | | SERVICES, CORE | TABITHA [...] | | | LABORATORY | | | SALVADOREAN | | | SERVICES, | | | [...] | Specimen | + + | Blood - Blood | | (substance) | + + + + + | Narrative | Performed At | + + + | Adult glucose reference range change effective 03-18-17. GFR is | [facility] | | estimated using the MDRD equation recommended by the National Kidney | LABORATORY | | Disease Education Program. Estimated GFR Interpretive Information: | SERVICES, CORE | | <60 mL/min/1.73 sq m Chronic Kidney Disease | | | <15 mL/min/1.73 sq m Kidney Failure Estimated | | | GFR greater that 60 mL/min/1.73 sq m is of limited clinical value. | | | The MDRD equation is not valid in the following situations: - | | | Patients under 18 years of age - Severe malnutrition or obesity - | | | Vegetarian diet - Rapidly changing kidney function | | + + + + + + + + | Performing | Address | City/State/Zipcode | Phone Number | | Organization | | | | + + + + + | [facility] | [address] | [place] [address] | | | SERVICES, CORE | TABITHA [...] | Specimen | + + | Blood - Blood | | (substance) | + + + + + | [...] - Therapeutic Ranges: Heparin, Unfractionated: 0.35 - 0.70 | | | U/mL Enoxaparin, LMWH: 0.70 - 1.20 U/mL Dalteparin, | | | LMWH: 0.70 - 1.20 U/mL Tinzaparin, LMWH: | | | Therapeutic range not established. | | | Preliminary studies suggest range | | | similar to dalteparin. Clinical | | | correlation required. Heparin levels may be unreliable | | | for: Total bilirubin >28.8 | | | mg/dL Triglycerides >690 | | | mg/dL or Moderate to Gross | | | Hemolysis | | + + + + + + + + | Performing | Address | City/State/Zipcode | Phone Number | | Organization | | | | + + + + + | [facility] | [address] | [place] [address] | | | SERVICES, CORE | TABITHA [...] + | [facility] | [address] | [place], [place] | | | JULIANN SILVA OF [facility] | [facility] | [address] | | | TESTS | | | [...] [facility] | [address] | [place], [place] | | | [facility] | [address] | [address] | | | TESTS | | | [...] [facility] | [address] | [place], [place] | | | [facility] | [address] | [address] | | | TESTS | | | [...] [facility] | [address] | [place], [place] | | | JULIANN SILVA OF CARE | [address] | [address] | | | TESTS | | | [...] | Specimen | + + | Blood - Blood | | (substance) | + + + + + | [...] - Therapeutic Ranges: Heparin, Unfractionated: 0.35 - 0.70 | | | U/mL Enoxaparin, LMWH: 0.70 - 1.20 U/mL Dalteparin, | | | LMWH: 0.70 - 1.20 U/mL Tinzaparin, LMWH: | | | Therapeutic range not established. | | | Preliminary studies suggest range | | | similar to dalteparin. Clinical | | | correlation required. Heparin levels may be unreliable | | | for: Total bilirubin >28.8 | | | mg/dL Triglycerides >690 | | | mg/dL or Moderate to Gross | | | Hemolysis | | + + + + + + + + | Performing | Address | City/State/Zipcode | Phone Number | | Organization | | | | + + + + + | [facility] | [address] | [place] [address] | | | SERVICES, CORE | PARK [...] | Specimen | + + | Blood - Blood | | (substance) | + + + + + + + | Performing | Address | City/State/Zipcode | Phone Number | | Organization | | | | + + + + + | [facility] | [address] | [place] [address] | | | ИРИНА ANTOINE | TABITHA [...] (H) | 70 - 99 mg/dL | [facility] - | | | GLUCOSE, | | [...] [facility] | [address] | [place], [place] | | | [facility] | [address] | [id number] | | | TESTS | | | | + + + + + PROCEDURE NOTE (03/24/2017 11:25 AM PDT) + + + | Narrative | Performed At | + + + | Venice Matta RN 03/24/2017 11:25 AM Midline Insertion | | | Documentation Note Today's date: 03/24/17 Start Time: At 1030, | | | prior to the beginning of the procedure, the team paused to verify | | | the patient's identity, the procedure to be performed and the | | | correct side/site. The patient was positioned appropriately. Any | | | safety precautions were addressed. Patient Location (Unit/Room#): | | | 12K Indication for Midline: access Procedure Details: | | | Masks were worn by all members in the room where the procedure was | | | performed. Upper arm circumference measured 10cm above AC was | | | cm. Prior to initiating the procedure, the practitioner thoroughly | | | washed their hands and donned sterile gloves. The procedure was | | | performed using maximum sterile barrier precautions. An ultrasound | | | was used for pre-procedure identification of the patient's vascular | | | anatomy. The insertion site was prepped with Guero cloth and | | | Chloraprep. The arm was prepped and draped in the procedural sterile | | | fashion and the sterile field was maintained at all times. | | | Anesthesia was obtained with 1 mL of 1% Lidocaine. Venipuncture | | | was performed under direct ultrasound guidance. Midline | | | Catheter Insertion: The L cephelic vein circumference was cm and | | | cannulated with dark red, non-pulsatile blood return. A 4fr 8cm | | | midline catheter was placed on the 1 attempt. Midline lot number | | | [id number]; there was + blood return. The catheter was flushed with | | | 20 mL of Normal Saline, an antimicrobial disc was placed at the | | | insertion site and a catheter securement device was utilized. | | | Complications: none Placed by: Venice Matta RN | | + [...] ANA MARIA | [address] | [place], [place] | | | [facility] | [address] | [address] | | | TESTS | | | [...] (H) | 70 - 99 mg/dL | [facility] - | | | GLUCOSE, | | [...] RODGERS | [address] | [place], [place] | | | [facility] | [address] | [address] | | | TESTS | | | [...] | Specimen | + + | Blood - Blood | | (substance) | + + + + + | [...] - Therapeutic Ranges: Heparin, Unfractionated: 0.35 - 0.70 | | | U/mL Enoxaparin, LMWH: 0.70 - 1.20 U/mL Dalteparin, | | | LMWH: 0.70 - 1.20 U/mL Tinzaparin, LMWH: | | | Therapeutic range not established. | | | Preliminary studies suggest range | | | similar to dalteparin. Clinical | | | correlation required. Heparin levels may be unreliable | | | for: Total bilirubin >28.8 | | | mg/dL Triglycerides >690 | | | mg/dL or Moderate to Gross | | | Hemolysis | | + + + + + + + + | Performing | Address | City/State/Zipcode | Phone Number | | Organization | | | | + + + + + | [facility] | [address] | [place] [address] | | | ИРИНА ANTOINE | TABITHA [...] MARQUAM | [address] | [place], [place] | | | [facility] | [facility] | [address] | | | TESTS | | | [...] (H) | 70 - 99 mg/dL | [facility] - | | | GLUCOSE, | | [...] MARQUAM | [address] | [place], [place] | | | [facility] | [address] | [address] | | | TESTS | | | [...] RODGERS | [address] | [place], [place] | | | [facility] | [facility] | [address] | | | TESTS | | | | + + + + + CAPILLARY BLOOD GLUCOSE (NO CHG) POC (03/24/2017 2:02 AM PDT) + +---------+ [...] - MARQUAM | [address] | [place], [place] | | | [facility] | [address] | [address] | | | TESTS | | | [...] | Specimen | + + | Blood - Blood | | (substance) | + + + + + | Narrative | Performed At | + + + | Immature Granulocytes (IG) include metamyelocytes, myelocytes | [facility] | | and promyelocytes. Bands are not included in the IG count. Bands are | LABORATORY | | included in the neutrophil count. | SERVICES, CORE | + + + + + + + + | Performing | Address | City/State/Zipcode | Phone Number | | Organization | | | | + + + + + | [facility] | [address] | [place] [address] | | | SERVICES, CORE | PARK [...] | Specimen | + + | Blood - Blood | | (substance) | + + + + + | [...] ranges for full anticoagulation: INR for Venous Thromboembolism | | | (2.0 - 3.0) INR INR for most patients with mech. | | | valves (2.5 - 3.5) INR | | + + + + + + + + | Performing | Address | City/State/Zipcode | Phone Number | | Organization | | | | + + + + + | [facility] | [address] | [place] [address] | | | SERVICES, CORE | PARK [...] | Specimen | + + | Blood - Blood | | (substance) | + + + + + + + | Performing | Address | City/State/Zipcode | Phone Number | | Organization | | | | + + + + + | [facility] | [address] | [place] [address] | | | SERVICES, CORE | TABITHA ALICEA | | | + [...] | | | LABORATORY | | | SALVADOREAN | | | SERVICES, | | | [...] | Specimen | + + | Blood - Blood | | (substance) | + + + + + | Narrative | Performed At | + + + | Adult glucose reference range change effective 7-12-17. GFR is | [facility] | | estimated using the MDRD equation recommended by the National Kidney | LABORATORY | | Disease Education Program. Estimated GFR Interpretive Information: | SERVICES, CORE | | <60 mL/min/1.73 sq m Chronic Kidney Disease | | | <15 mL/min/1.73 sq m Kidney Failure Estimated | | | GFR greater that 60 mL/min/1.73 sq m is of limited clinical value. | | | The MDRD equation is not valid in the following situations: - | | | Patients under 18 years of age - Severe malnutrition or obesity - | | | Vegetarian diet - Rapidly changing kidney function | | + + + + + + + + | Performing | Address | City/State/Zipcode | Phone Number | | Organization | | | | + + + + + | [facility] | [address] | [place] [address] | | | SERVICES, CORE | PARK [...] | Specimen | + + | Blood - Blood | | (substance) | + + + + + | [...] - Therapeutic Ranges: Heparin, Unfractionated: 0.35 - 0.70 | | | U/mL Enoxaparin, LMWH: 0.70 - 1.20 U/mL Dalteparin, | | | LMWH: 0.70 - 1.20 U/mL Tinzaparin, LMWH: | | | Therapeutic range not established. | | | Preliminary studies suggest range | | | similar to dalteparin. Clinical | | | correlation required. Heparin levels may be unreliable | | | for: Total bilirubin >28.8 | | | mg/dL Triglycerides >690 | | | mg/dL or Moderate to Gross | | | Hemolysis | | + + + + + + + + | Performing | Address | City/State/Zipcode | Phone Number | | Organization | | | | + + + + + | [facility] | [address] | [place] [address] | | | ARASH, ИРИНА | TABITHA [...] + | [facility] | [address] | [place], [place] | | | [facility] | [facility] | [address] | | | TESTS | | | [...] (H) | 70 - 99 mg/dL | [facility] - | | | GLUCOSE, | | [...] MARQUAM | [address] | [place], [place] | | | [facility] | [address] | [address] | | | TESTS | | | [...] RODGERS | [address] | [place], [place] | | | [facility] | [facility] | [address] | | | TESTS | | | [...] MARQUAM | [address] | [place], [place] | | | [facility] | [facility] | [address] | | | TESTS | | | [...] | Specimen | + + | Blood - Blood | | (substance) | + + + + + + + | Performing | Address | City/State/Zipcode | Phone Number | | Organization | | | | + + + + + | [facility] | [address] | [place] [address] | | | SERVICES, CORE | TABITHA [...] MARQUAM | [address] | [place] | | | [facility] | [address] | [address] | | | TESTS | | | [...] MARIA | [address] | [place], [place] | | | HONOBIA BALLICO OF [facility] | [facility] | [address] | | | TESTS | | | [...] | Specimen | + + | Blood - Blood | | (substance) | + + + + + | [...] | + + + + + | [facility] | [address] | [place] [address] | | | SERVICES, CORE | PARK [...] (H) | 70 - 99 mg/dL | [facility] - | | | GLUCOSE, | | [...] RODGERS | [address] | [place], [place] | | | J[facility] OF [facility] | [facility] | [address] | | | TESTS | | | [...] BLUAM | [address] | [place], [place] | | | [facility] | [facility] | [address] | | | TESTS | | | [...] (H) | 70 - 99 mg/dL | [facility] - | | | GLUCOSE, | | [...] MARIA | [address] | [place], [place] | | | [facility] | [address] | [address] | | | TESTS | | | [...] RODGERS | [address] | [place], [place] | | | [facility] | [facility] | [address] | | | TESTS | | | [...] - MARQUAM | [address] | [place], [place] | | | [facility] | [facility] | [address] | | | TESTS | | | [...] | Specimen | + + | Blood - Blood | | (substance) | + + + + + | Narrative | Performed At | + + + | Immature Granulocytes (IG) include metamyelocytes, myelocytes | [facility] | | and promyelocytes. Bands are not included in the IG count. Bands are | LABORATORY | | included in the neutrophil count. | SERVICES, CORE | + + + + + + + + | Performing | Address | City/State/Zipcode | Phone Number | | Organization | | | | + + + + + | [facility] | [address] | [place] [address] | | | SERVICES, CORE | PARK [...] | Specimen | + + | Blood - Blood | | (substance) | + + + + + | [...] ranges for full anticoagulation: INR for Venous Thromboembolism | | | (2.0 - 3.0) INR INR for most patients with mech. | | | valves (2.5 - 3.5) INR | | + + + + + + + + | Performing | Address | City/State/Zipcode | Phone Number | | Organization | | | | + + + + + | [facility] | [address] [facility] | [place] [address] | | | SERVICES, CORE | PARK [...] | Specimen | + + | Blood - Blood | | (substance) | + + + + + + + | Performing | Address | City/State/Zipcode | Phone Number | | Organization | | | | + + + + + | [facility] | [address] | [place] [address] | | | SERVICES, CORE | TABITHA ALICEA | | | + [...] | | | LABORATORY | | | SALVADOREAN | | | SERVICES, | | | [...] | Specimen | + + | Blood - Blood | | (substance) | + + + + + | Narrative | Performed At | + + + | Adult glucose reference range change effective 7-12-17. GFR is | [facility] | | estimated using the MDRD equation recommended by the National Kidney | LABORATORY | | Disease Education Program. Estimated GFR Interpretive Information: | SERVICES, CORE | | <60 mL/min/1.73 sq m Chronic Kidney Disease | | | <15 mL/min/1.73 sq m Kidney Failure Estimated | | | GFR greater that 60 mL/min/1.73 sq m is of limited clinical value. | | | The MDRD equation is not valid in the following situations: - | | | Patients under 18 years of age - Severe malnutrition or obesity - | | | Vegetarian diet - Rapidly changing kidney function | | + + + + + + + + | Performing | Address | City/State/Zipcode | Phone Number | | Organization | | | | + + + + + | [facility] | [address] | [place] [address] | | | SERVICES, CORE | TABITHA [...] | Specimen | + + | Blood - Blood | | (substance) | + + + + + | [...] - Therapeutic Ranges: Heparin, Unfractionated: 0.35 - 0.70 | | | U/mL Enoxaparin, LMWH: 0.70 - 1.20 U/mL Dalteparin, | | | LMWH: 0.70 - 1.20 U/mL Tinzaparin, LMWH: | | | Therapeutic range not established. | | | Preliminary studies suggest range | | | similar to dalteparin. Clinical | | | correlation required. Heparin levels may be unreliable | | | for: Total bilirubin >28.8 | | | mg/dL Triglycerides >690 | | | mg/dL or Moderate to Gross | | | Hemolysis | | + + + + + + + + | Performing | Address | City/State/Zipcode | Phone Number | | Organization | | | | + + + + + | [facility] | [address] [facility] | [place] [address] | | | ARASH, ИРИНА | TABITHA [...] - MARQUAM | [address] | [place], [place] | | | [facility] | [facility] | [address] | | | TESTS | | | [...] (H) | 70 - 99 mg/dL | [facility] - | | | GLUCOSE, | | [...] NINOSKAQUAM | [address] | [place], [place] | | | [facility] | [address] | [address] | | | TESTS | | | [...] RODGERS | [address] | [place], [place] | | | [facility] | [facility] | [address] | | | TESTS | | | [...] - MARQUAM | [address] | [place], [place] | | | [facility] | [facility] | [address] | | | TESTS | | | [...] (H) | 70 - 99 mg/dL | [facility] - | | | GLUCOSE, | | [...] MARQUAM | [address] | [place], [place] | | | [facility] | [address] | [address] | | | TESTS | | | [...] RODGERS | [address] | [place], [place] | | | [facility] | [facility] | [address] | | | TESTS | | | [...] | Specimen | + + | Blood - Blood | | (substance) | + + + + + + + | Performing | Address | City/State/Zipcode | Phone Number | | Organization | | | | + + + + + | [facility] | [address] | [place] [address] | | | SERVICES, CORE | TABITHA [...] (H) | 70 - 99 mg/dL | [facility] - | | | GLUCOSE, | | [...] RODGERS | [address] | [place], [place] | | | [facility] | [address] | [address] | | | TESTS | | | [...] MARQUAM | [address] | [place], [place] | | | [facility] | [address] | [address] | | | TESTS | | | [...] - MARQUAM | [address] | [place], [place] | | | [facility] | [address] | [address] | | | TESTS | | | [...] + + + + + | [facility] | [address] | [place], [place] | | | [facility] | [address] | [address] | | | TESTS | | | [...] MARQUAM | [address] | [place], [place] | | | [facility] | [address] | [address] | | | TESTS | | | [...] | Specimen | + + | Blood - Blood | | (substance) | + + + + + + + | Performing | Address | City/State/Zipcode | Phone Number | | Organization | | | | + + + + + | [facility] | [address] [facility] | [place] [address] | | | SERVICES, CORE | PARK [...] MARIA | [address] | [place], [place] | | | [facility] | [address] | [address] | | | TESTS | | | [...] BLUAM | [address] | [place], [place] | | | [facility] | [facility] | [address] | | | TESTS | | | [...] (H) | 70 - 99 mg/dL | [facility] - | | | GLUCOSE, | | [...] RODGERS | [address] | [place], [place] | | | [facility] | [address] | [address] | | | TESTS | | | [...] RODGERS | [address] | [place], [place] | | | [facility] | [address] | [address] | | | TESTS | | | [...] MARIA | [address] | [place], [place] | | | [facility] | [facility] | [address] | | | TESTS | | | [...] (H) | 70 - 99 mg/dL | [facility] - | | | GLUCOSE, | | [...] BLUAM | [address] | [place], [place] | | | [facility] | [address] | [address] | | | TESTS | | | [...] | Specimen | + + | Blood - Blood | | (substance) | + + + + + + + | Performing | Address | City/State/Zipcode | Phone Number | | Organization | | | | + + + + + | [facility] | [address] | [place] [address] | | | SERVICES, | [address] [...] | Specimen | + + | Blood - Blood | | (substance) | + + + + + + + | Performing | Address | City/State/Zipcode | Phone Number | | Organization | | | | + + + + + | [facility] | [address] | [place] [address] | | | SERVICES, | [address] [...] + + + + | PRODUCT | [id number] | | [facility] | | | UNIT [...] + + + + | EXPIRATION | [id number] | | [facility] | | | DATE [...] + + + + | BLOOD | [id number] | | [facility] | | | PRODUCT [...] | + + + + + | [facility] | [address] | [place] [address] | | | SERVICES, | [address] [...] | Specimen | + + | Blood - Blood | | (substance) | + + + + + | Narrative | Performed At | + + + | Immature Granulocytes (IG) include metamyelocytes, myelocytes | [facility] | | and promyelocytes. Bands are not included in the IG count. Bands are | LABORATORY | | included in the neutrophil count. | SERVICES, CORE | + + + + + + + + | Performing | Address | City/State/Zipcode | Phone Number | | Organization | | | | + + + + + | [facility] | [address] | [place] [address] | | | SERVICES, CORE | PARK [...] | Specimen | + + | Blood - Blood | | (substance) | + + + + + + + | Performing | Address | City/State/Zipcode | Phone Number | | Organization | | | | + + + + + | [facility] | [address] | [place] [address] | | | SERVICES, CORE | PARK [...] | Specimen | + + | Blood - Blood | | (substance) | + + + + + | [...] - Therapeutic Ranges: Heparin, Unfractionated: 0.35 - 0.70 | | | U/mL Enoxaparin, LMWH: 0.70 - 1.20 U/mL Dalteparin, | | | LMWH: 0.70 - 1.20 U/mL Tinzaparin, LMWH: | | | Therapeutic range not established. | | | Preliminary studies suggest range | | | similar to dalteparin. Clinical | | | correlation required. Heparin levels may be unreliable | | | for: Total bilirubin >28.8 | | | mg/dL Triglycerides >690 | | | mg/dL or Moderate to Gross | | | Hemolysis | | + + + + + + + + | Performing | Address | City/State/Zipcode | Phone Number | | Organization | | | | + + + + + | [facility] | [address] | [place] [address] | | | SERVICES, CORE | PARK [...] | Specimen | + + | Blood - Blood | | (substance) | + + + + + | [...] ranges for full anticoagulation: INR for Venous Thromboembolism | | | (2.0 - 3.0) INR INR for most patients with mech. | | | valves (2.5 - 3.5) INR | | + + + + + + + + | Performing | Address | City/State/Zipcode | Phone Number | | Organization | | | | + + + + + | [facility] | [address] [facility] | [place] [address] | | | SERVICES, CORE | PARK [...] | Specimen | + + | Blood - Blood | | (substance) | + + + + + + + | Performing | Address | City/State/Zipcode | Phone Number | | Organization | | | | + + + + + | [facility] | [address] | [place] [address] | | | SERVICES, CORE | PARK [...] | | | LABORATORY | | | SAL[place]ADOREAN | | | SERVICES, | | | [...] | Specimen | + + | Blood - Blood | | (substance) | + + + + + | Narrative | Performed At | + + + | Adult glucose reference range change effective 7-. GFR is | [facility] | | estimated using the MDRD equation recommended by the National Kidney | LABORATORY | | Disease Education Program. Estimated GFR Interpretive Information: | SERVICES, CORE | | <60 mL/min/1.73 sq m Chronic Kidney Disease | | | <15 mL/min/1.73 sq m Kidney Failure Estimated | | | GFR greater that 60 mL/min/1.73 sq m is of limited clinical value. | | | The MDRD equation is not valid in the following situations: - | | | Patients under 18 years of age - Severe malnutrition or obesity - | | | Vegetarian diet - Rapidly changing kidney function | | + + + + + + + + | Performing | Address | City/State/Zipcode | Phone Number | | Organization | | | | + + + + + | [facility] | [address] [facility] | [place] [address] | | | SERVICES, ИРИНА | TABITHA [...] - MARQU[facility] | [address] | [place], [place] | | | [facility] | [facility] | [address] | | | TESTS | | | [...] (H) | 70 - 99 mg/dL | [facility] - | | | GLUCOSE, | | [...] N[facility]OS[facility] | [address] | [place], [place] | | | [facility] | [address] | [address] | | | TESTS | | | [...] RODGERS | [address] | [place], [place] | | | J[facility] | [facility] | [address] | | | TESTS | | | | + + + + + CAPILLARY BLOOD GLUCOSE (NO CHG) POC (03/21/2017 11:29 PM PDT) + +---------+ [...] - MARQUAM | [address] | [place], [place] | | | [facility] | [facility] | [address] | | | TESTS | | | [...] (H) | 70 - 99 mg/dL | [facility] - | | | GLUCOSE, | | [...] MARQUAM | [address] | [place], [place] | | | [facility] | [address] | [address] | | | TESTS | | | [...] RODGERS | [address] | [place], [place] | | | [facility] | [facility] | [address] | | | TESTS | | | [...] MARQUAM | [address] | [place], [place] | | | [facility] | [facility] | [address] | | | TESTS | | | [...] (H) | 70 - 99 mg/dL | [facility] - | | | GLUCOSE, | | [...] MARQU[facility] | [address] | [place], [place] | | | [facility] | [address] | [address] | | | TESTS | | | [...] RODGERS | [address] | [place], [place] | | | J[facility] [place] | [facility] | [address] | | | TESTS | | | [...] | | | LABORATORY | | | SAL[place]OREAN | | | SERVICES, | | | [...] | Specimen | + + | Blood - Blood | | (substance) | + + + + + | Narrative | Performed At | + + + | Adult glucose reference range change effective 7-12-17. GFR is | [facility] | | estimated using the MDRD equation recommended by the National Kidney | LABORATORY | | Disease Education Program. Estimated GFR Interpretive Information: | SERVICES, CORE | | <60 mL/min/1.73 sq m Chronic Kidney Disease | | | <15 mL/min/1.73 sq m Kidney Failure Estimated | | | GFR greater that 60 mL/min/1.73 sq m is of limited clinical value. | | | The MDRD equation is not valid in the following situations: - | | | Patients under 18 years of age - Severe malnutrition or obesity - | | | Vegetarian diet - Rapidly changing kidney function | | + + + + + + + + | Performing | Address | City/State/Zipcode | Phone Number | | Organization | | | | + + + + + | [facility] | [address] | [place] [address] | | | SERVICES, CORE | PARK [...] MARQU[facility] | [address] | [place], [place] | | | [facility] | [address] | [address] | | | TESTS | | | [...] MARQU[facility] | [address] | [place], [place] | | | [facility] | [facility] | [address] | | | TESTS | | | [...] RODGERS | [address] | [place], [place] | | | [facility] | [address] | [address] | | | TESTS | | | | + + + + + PROCEDURE NOTE (03/21/2017 1:00 PM PDT) + + + | Narrative | Performed At | + + + | Venice Matta RN 03/21/2017 1:00 PM Midline Insertion | | | Documentation Note Today's date: 03/21/17 Start Time: At 1230, | | | prior to the beginning of the procedure, the team paused to verify | | | the patient's identity, the procedure to be performed and the | | | correct side/site. The patient was positioned appropriately. Any | | | safety precautions were addressed. Patient Location (Unit/Room#): | | | 12k Indication for Midline: access Procedure Details: | | | Masks were worn by all members in the room where the procedure was | | | performed. Prior to initiating the procedure, the practitioner | | | thoroughly washed their hands and donned sterile gloves. The | | | procedure was performed using sterile barrier precautions. An | | | ultrasound was used for pre-procedure identification of the | | | patient's vascular anatomy. Venipuncture was performed under | | | direct ultrasound guidance. The arm was prepped and draped in the | | | procedural sterile fashion and the sterile field was maintained at | | | all times. The insertion site was prepped with Guero cloth and | | | Chloraprep. Anesthesia was obtained with 1 mL of buffered 1% | | | Lidocaine. Midline Catheter Insertion: The R brachial vein was | | | cannulated with dark red, non-pulsatile blood return. A 18g 10cm | | | PowerGlide catheter was placed on the 1 attempt. Midline lot | | | number [id number]; there was + blood return. The catheter was | | | flushed with 20 mL of Normal Saline, an antimicrobial disc was | | | placed at the insertion site and a catheter securement device was | | | utilized. Complications:none Placed by:Daquan Matta RN | | + [...] [facility] | [id number] | [place], [place] | | | [facility] S[facility] | [facility] | [id number] | | | TESTS | | | [...] (H) | 70 - 99 mg/dL | [place] - | | | GLUCOSE, | | [...] [facility] | [address] | [place], [place] | | | [facility] | [address] | [id number] | | | TESTS | | | [...] | Specimen | + + | Blood - Blood | | (substance) | + + + + + | Narrative | Performed At | + + + | Carboxyhemoglobin ranges Nonsmoker: | [facility] | | <1.5% Smokers (1-2 packs/day): 4-5% Smokers (>2 packs/day): | [facility] | | 8-9% Methemoglobin Reference Range: 0-18 years: Not | SERVICES, CORE | | Available >18 years: <2% of total hemoglobin | | + + + + + + + + | Performing | Address | City/State/Zipcode | Phone Number | | Organization | | | | + + + + + | [facility] | [address] | [place] [address] | | | SERVICES CORE | [address] | | | [...] [facility] | [address] | [place], [place] | | | JULIANN SILVA OF [facility] | [address] | [address] | | | TESTS | | | [...] | Specimen | + + | Blood - Blood | | (substance) | + + + + + | Narrative | Performed At | + + + | INR Therapeutic ranges for full anticoagulation: INR for | [facility] | | Venous Thromboembolism (2.0 - 3.0) INR INR for | LABORATORY | | most patients with mech. valves (2.5 - 3.5) INR | SERVICES, CORE | + + + + + + + + | Performing | Address | City/State/Zipcode | Phone Number | | Organization | | | | + + + + + | [facility] | [address] | [place] [address] | | | SERVICES, CORE | TABITHA [...] | [facility] | [address] | [place], [place] | | | JULIANN SILVA OF CARE | [address] | [address] | | | TESTS | | | [...] - [facility] | [address] | [place], [place] | | | JULIANN SILVA [facility] CARE | [address] | [address] | | | TESTS | | | [...] [facility] | [address] | [place], [place] | | | JULIANN SILVA [facility] CARE | [address] | [address] | | | TESTS | | | [...] [facility] | [address] | [place], [place] | | | JULIANN SILVA [facility] CARE | [address] | [address] | | | TESTS | | | [...] | Specimen | + + | Blood - Blood | | (substance) | + + + + + | Narrative | Performed At | + + + | Immature Granulocytes (IG) include metamyelocytes, myelocytes | [facility] | | and promyelocytes. Bands are not included in the IG count. Bands are | LABORATORY | | included in the neutrophil count. | SERVICES, CORE | + + + + + + + + | Performing | Address | City/State/Zipcode | Phone Number | | Organization | | | | + + + + + | [facility] | [address] | [place] [address] | | | SERVICES, CORE | PARK [...] | Specimen | + + | Blood - Blood | | (substance) | + + + + + | [...] - Therapeutic Ranges: Heparin, Unfractionated: 0.35 - 0.70 | | | U/mL Enoxaparin, LMWH: 0.70 - 1.20 U/mL Dalteparin, | | | LMWH: 0.70 - 1.20 U/mL Tinzaparin, LMWH: | | | Therapeutic range not established. | | | Preliminary studies suggest range | | | similar to dalteparin. Clinical | | | correlation required. Heparin levels may be unreliable | | | for: Total bilirubin >28.8 | | | mg/dL Triglycerides >690 | | | mg/dL or Moderate to Gross | | | Hemolysis | | + + + + + + + + | Performing | Address | City/State/Zipcode | Phone Number | | Organization | | | | + + + + + | [facility] | [address] | [place] [address] | | | SERVICES, CORE | PARK [...] | Specimen | + + | Blood - Blood | | (substance) | + + + + + + + | Performing | Address | City/State/Zipcode | Phone Number | | Organization | | | | + + + + + | [facility] | [address] | [place] [address] | | | ИРИНА ANTOINE | TABITHA [...] | | | LABORATORY | | | SALVADOREAN | | | SERVICES, | | | [...] | Specimen | + + | Blood - Blood | | (substance) | + + + + + | Narrative | Performed At | + + + | Adult glucose reference range change effective 712-17. GFR is | [facility] | | estimated using the MDRD equation recommended by the National Kidney | LABORATORY | | Disease Education Program. Estimated GFR Interpretive Information: | SERVICES, CORE | | <60 mL/min/1.73 sq m Chronic Kidney Disease | | | <15 mL/min/1.73 sq m Kidney Failure Estimated | | | GFR greater that 60 mL/min/1.73 sq m is of limited clinical value. | | | The MDRD equation is not valid in the following situations: - | | | Patients under 18 years of age - Severe malnutrition or obesity - | | | Vegetarian diet - Rapidly changing kidney function | | + + + + + + + + | Performing | Address | City/State/Zipcode | Phone Number | | Organization | | | | + + + + + | [facility] | [address] | [place] [address] | | | SERVICES, CORE | PARK [...] MAR[facility] | [address] | [place], [place] | | | JULIANN SILVA [facility] | [address] | [address] | | | TESTS | | | [...] ANA MARIA | [address] | [place], [place] | | | JULIANN SILVA OF CARE | [address] | [address] | | | TESTS | | | [...] | | | CITRATED | | | [facility] | | | [...] | Specimen | + + | Blood - Blood | | (substance) | + + + + + | [...] [facility] | [address] | [place], [place] | | | JUL[facility]ANN S[facility]VA [facility] CARE | [address] | [address] | | | TESTS | | | [...] [facility] | [address] | [place], [place] | | | [facility] | [address] | [address] | | | TESTS | | | [...] | [facility] | [address] | [place], [place] | | | [facility] | [address] | [address] | | | TESTS | | | [...] | Specimen | + + | Blood - Blood | | (substance) | + + + + + + + | Performing | Address | City/State/Zipcode | Phone Number | | Organization | | | | + + + + + | [facility] | [address] | [place] [address] | | | SERVICES, CORE | PARK [...] MARIA | [address] | [place], [place] | | | JULIANN SILVA [facility] CARE | [address] | [address] | | | TESTS | | | [...] (H) | 70 - 99 mg/dL | [facility] - | | | GLUCOSE, | | [...] [facility] | [address] | [place], [place] | | | [facility] | [address] | [address] | | | TESTS | | | [...] [facility] | [address] | [place], [place] | | | JUL[facility]ANN S[facility] CARE | [address] | [address] | | | TESTS | | | [...] MARIA | [address] | [place], [place] | | | JULIANN SILVA [facility] CARE | [address] | [address] | | | TESTS | | | [...] (H) | 70 - 99 mg/dL | [facility] - | | | GLUCOSE, | | [...] [facility] | [address] | [place], [place] | | | [facility] | [address] | [address] | | | TESTS | | | [...] [facility] | [address] | [place], [place] | | | JUL[facility]ANN SILVA [facility] CARE | [address] | [address] | | | TESTS | | | [...] ANA MARIA | [address] | [place], [place] | | | RICARDO BALLICO OF [facility] | [address] | [address] | | | TESTS | | | [...] | Specimen | + + | Blood - Blood | | (substance) | + + + + + + + | Performing | Address | City/State/Zipcode | Phone Number | | Organization | | | | + + + + + | [facility] | [address] | [place] [address] | | | SERVICES, ИРИНА | TABITHA [...] [facility] | [address] | [place], [place] | | | HILL, POINT OF CARE | [address] | [address] | | | TESTS | | | [...] [facility] | [address] | [place], [place] | | | JULIANN SILVA OF [facility] | [address] | [address] | | | TESTS | | | [...] | Specimen | + + | Blood - Blood | | (substance) | + + + + + | [...] - Therapeutic Ranges: Heparin, Unfractionated: 0.35 - 0.70 | | | U/mL Enoxaparin, LMWH: 0.70 - 1.20 U/mL Dalteparin, | | | LMWH: 0.70 - 1.20 U/mL Tinzaparin, LMWH: | | | Therapeutic range not established. | | | Preliminary studies suggest range | | | similar to dalteparin. Clinical | | | correlation required. Heparin levels may be unreliable | | | for: Total bilirubin >28.8 | | | mg/dL Triglycerides >690 | | | mg/dL or Moderate to Gross | | | Hemolysis | | + + + + + + + + | Performing | Address | City/State/Zipcode | Phone Number | | Organization | | | | + + + + + | [facility] | [address] | [place] [address] | | | SERVICES, CORE | TABITHA [...] [facility] | [address] | [place], [place] | | | JULIANN SILVA OF CARE | [address] | [address] | | | TESTS | | | | + + + + + X-RAY ABD LTD FEEDING TUBE EVAL (03/20/2017 1:18 PM PDT) + + | Specimen | + + | | + + + + + | Narrative | Performed At | + + + | EXAM: Supine frontal view of the abdomen. HISTORY: Study to | [facility] | | evaluate feeding tube position COMPARISON: Chest Xray dated | RADIOLOGY VOICE | | 03/19/2017. FINDINGS AND IMPRESSION: Feeding tube is seen in | RECOGNITION | | the stomach with the tip in the proximal gastric body. [place] Олег | | | catheter in place. Limited evaluation of the lungs as technique was | | | tailored for feeding tube. I have personally reviewed the | | | images and, if necessary, edited the report. I agree with the report | | | as now presented. | | + + + + + | Procedure Note | + + | Service Account, Radiant Res In Interface - 03/20/2017 2:38 PM PDT EXAM: Supine | | frontal view of the abdomen. HISTORY: Study to evaluate feeding tube | | positionCOMPARISON: Chest Xray dated 03/19/2017.FINDINGS AND IMPRESSION:Feeding tube is | | seen in the stomach with the tip in the proximal gastric body.[place] Олег catheter in | | place.Limited evaluation of the lungs as technique was tailored for feeding tube.I have | | personally reviewed the images and, if necessary, edited the report. I agree with the | | report as now presented. | | | |Feeding tube is seen in the stomach with the tip in the proximal gastric body. | |[place] Олег catheter in place. | |Limited evaluation [...] [facility] | [address] | [place], [place] | | | JUL[facility]ANN SILVA [facility] CARE | [address] | [address] | | | TESTS | | | [...] MARIA | [address] | [place], [place] | | | JULIANN SILVA OF CARE | [facility] | [address] | | | TESTS | | | [...] (H) | 70 - 99 mg/dL | [facility] - | | | GLUCOSE, | | [...] [facility] | [address] | [place], [place] | | | JULIANN SILVA OF CARE | [facility] | [address] | | | TESTS | | | [...] [facility] | [address] | [place], [place] | | | JUL[facility]ANN SILVA [facility] CARE | [address] | [address] | | | TESTS | | | [...] MARIA | [address] | [place], [place] | | | JULIANN SILVA OF [facility] | [address] | [address] | | | TESTS | | | [...] | Specimen | + + | Blood - Blood | | (substance) | + + + + + | [...] - Therapeutic Ranges: Heparin, Unfractionated: 0.35 - 0.70 | | | U/mL Enoxaparin, LMWH: 0.70 - 1.20 U/mL Dalteparin, | | | LMWH: 0.70 - 1.20 U/mL Tinzaparin, LMWH: | | | Therapeutic range not established. | | | Preliminary studies suggest range | | | similar to dalteparin. Clinical | | | correlation required. Heparin levels may be unreliable | | | for: Total bilirubin >28.8 | | | mg/dL Triglycerides >690 | | | mg/dL or Moderate to Gross | | | Hemolysis | | + + + + + + + + | Performing | Address | City/State/Zipcode | Phone Number | | Organization | | | | + + + + + | [facility] | [address] | [place] [address] | | | SERVICES, CORE | PARK [...] | Specimen | + + | Blood - Blood | | (substance) | + + + + + + + | Performing | Address | City/State/Zipcode | Phone Number | | Organization | | | | + + + + + | [facility] | [address] | [place] [address] | | | SERVICES, CORE | PARK [...] | Specimen | + + | Blood - Blood | | (substance) | + + + + + + + | Performing | Address | City/State/Zipcode | Phone Number | | Organization | | | | + + + + + | [facility] | [address] | [place] [address] | | | SERVICES, CORE | TABITHA [...] (H) | 70 - 99 mg/dL | [facility] - | | | GLUCOSE, | | | [facility] | | | POC | | | JULIANN SILAV | | [...] [facility] | [address] | [place], [place] | | | JULIANN SILVA OF CARE | [address] | [address] | | | TESTS | | | | + + + + + X-RAY PORTABLE CHEST 1 VIEW (03/20/2017 6:33 AM PDT) + + | Specimen | + + | | + + + + + | Narrative | Performed At | + + + | EXAM: NV CHEST 1 VIEW 03/20/17 04:29:28 HISTORY: ECMO [...] if necessary, edited the report. | | | I agree with the report as now presented. | | + + + + + | Procedure Note | + + | Service Account, Sqeeqee In Interface - 03/20/2017 10:12 AM PDT EXAM: NV CHEST 1 | | VIEW 03/20/17 04:29:28 [...] [facility] | [address] | [place], [place] | | | JULIANN SILVA OF [facility] | [facility] | [address] | | | TESTS | | | [...] BLU[facility] | [address] | [place], [place] | | | JULIANN SILVA OF [facility] | [facility] | [address] | | | TESTS | | | [...] (H) | 70 - 99 mg/dL | [facility] - | | | GLUCOSE, | | [...] [facility] | [address] | [place], [place] | | | [facility] CARE | [address] | [address] | | | TESTS | | | [...] | | POC | | | JULIANN ISLVA | | | | | | OF [...] MARIA | [address] | [place], [place] | | | JULIANN SILVA OF [facility] | [address] | [address] | | | TESTS | | | [...] | Specimen | + + | Blood - Blood | | (substance) | + + + + + | Narrative | Performed At | + + + | Immature Granulocytes (IG) include metamyelocytes, myelocytes | [facility] | | and promyelocytes. Bands are not included in the IG count. Bands are | LABORATORY | | included in the neutrophil count. | [facility]TO[facility] | + + + + + + + + | Performing | Address | City/State/Zipcode | Phone Number | | Organization | | | | + + + + + | [facility] | [address] | [place] [address] | | | ИРИНА ANTOINE | TABITHA [...] | Specimen | + + | Blood - Blood | | (substance) | + + + + + + + | Performing | Address | City/State/Zipcode | Phone Number | | Organization | | | | + + + + + | [facility] | [address] [facility] | [place] [address] | | | SERVICES, CORE | PARK [...] | Specimen | + + | Blood - Blood | | (substance) | + + + + + + + | Performing | Address | City/State/Zipcode | Phone Number | | Organization | | | | + + + + + | [facility] | [address] | [place] [address] | | | SERVICES, CORE | TABITHA [...] | Specimen | + + | Blood - Blood | | (substance) | + + + + + | [...] - Therapeutic Ranges: Heparin, Unfractionated: 0.35 - 0.70 | | | U/mL Enoxaparin, LMWH: 0.70 - 1.20 U/mL Dalteparin, | | | LMWH: 0.70 - 1.20 U/mL Tinzaparin, LMWH: | | | Therapeutic range not established. | | | Preliminary studies suggest range | | | similar to dalteparin. Clinical | | | correlation required. Heparin levels may be unreliable | | | for: Total bilirubin >28.8 | | | mg/dL Triglycerides >690 | | | mg/dL or Moderate to Gross | | | Hemolysis | | + + + + + + + + | Performing | Address | City/State/Zipcode | Phone Number | | Organization | | | | + + + + + | [facility] | [address] [facility] | [place] [address] | | | ARASH, CORE | PARK [...] | | | LABORATORY | | | SALVADOREAN | | | SERVICES, | | | [...] | Specimen | + + | Blood - Blood | | (substance) | + + + + + | Narrative | Performed At | + + + | Adult glucose reference range change effective 03-18-. GFR is | [facility] | | estimated using the MDRD equation recommended by the National Kidney | LABORATORY | | Disease Education Program. Estimated GFR Interpretive Information: | SERVICES, CORE | | <60 mL/min/1.73 sq m Chronic Kidney Disease | | | <15 mL/min/1.73 sq m Kidney Failure Estimated | | | GFR greater that 60 mL/min/1.73 sq m is of limited clinical value. | | | The MDRD equation is not valid in the following situations: - | | | Patients under 18 years of age - Severe malnutrition or obesity - | | | Vegetarian diet - Rapidly changing kidney function | | + + + + + + + + | Performing | Address | City/State/Zipcode | Phone Number | | Organization | | | | + + + + + | [facility] | [address] [facility] | [place] [address] | | | SERVICES, CORE | TABITHA [...] [facility] | [address] | [place], [place] | | | JULIANN SILVA OF CARE | [facility] | [address] | | | TESTS | | | [...] (H) | 70 - 99 mg/dL | [facility] - | | | GLUCOSE, | | [...] MARIA | [address] | [place], [place] | | | JULIANN SILVA OF CARE | [address] | [address] | | | TESTS | | | [...] | Specimen | + + | Blood - Blood | | (substance) | + + + + + | Narrative | Performed At | + + + | Carboxyhemoglobin ranges Nonsmoker: | [facility] | | <1.5% Smokers (1-2 packs/day): 4-5% Smokers (>2 packs/day): | LABORATORY | | 8-9% Methemoglobin Reference Range: 0-18 years: Not | SERVICES, CORE | | Available >18 years: <2% of total hemoglobin | | + + + + + + + + | Performing | Address | City/State/Zipcode | Phone Number | | Organization | | | | + + + + + | [facility] | [address] | [place] [address] | | | SERVICES, CORE | TABITHA [...] [facility] | [address] | [place], [place] | | | [facility]ARE | [address] | [address] | | | TESTS | | | [...] | [facility] | [address] | [place], [place] | | | HONOBIA [facility] OF [facility] | [address] | [address] | | | TESTS | | | [...] | Specimen | + + | Stool - Rectum | | structure (body | | structure) | + + + + + + + | Performing | Address | City/State/Zipcode | Phone Number | | Organization | | | | + + + + + | [facility] | [address] | [place] [address] | | | SERVICES, CORE | TABITHA [...] [facility] | [address] | [place], [place] | | | JULIANN SILVA OF CARE | [address] | [address] | | | TESTS | | | [...] | Specimen | + + | Blood - Blood | | (substance) | + + + + + + + | Performing | Address | City/State/Zipcode | Phone Number | | Organization | | | | + + + + + | [facility] | [address] | [place] [address] | | | ARASH, ИРИНА | TABITHA [...] MARIA | [address] | [place], [place] | | | RICARDO [facility] | [facility] | [address] | | | TESTS | | | [...] | Specimen | + + | Blood - Blood | | (substance) | + + + + + | Narrative | Performed At | + + + | Carboxyhemoglobin ranges Nonsmoker: | [facility] | | <1.5% Smokers (1-2 packs/day): 4-5% Smokers (>2 packs/day): | LABORATORY | | 8-9% Methemoglobin Reference Range: 0-18 years: Not | SERVICES, CORE | | Available >18 years: <2% of total hemoglobin | | + + + + + + + + | Performing | Address | City/State/Zipcode | Phone Number | | Organization | | | | + + + + + | [facility] | [address] | [place] [address] | | | SERVICES, CORE | PARK [...] | Specimen | + + | Blood - Blood | | (substance) | + + + + + | [...] - Therapeutic Ranges: Heparin, Unfractionated: 0.35 - 0.70 | | | U/mL Enoxaparin, LMWH: 0.70 - 1.20 U/mL Dalteparin, | | | LMWH: 0.70 - 1.20 U/mL Tinzaparin, LMWH: | | | Therapeutic range not established. | | | Preliminary studies suggest range | | | similar to dalteparin. Clinical | | | correlation required. Heparin levels may be unreliable | | | for: Total bilirubin >28.8 | | | mg/dL Triglycerides >690 | | | mg/dL or Moderate to Gross | | | Hemolysis | | + + + + + + + + | Performing | Address | City/State/Zipcode | Phone Number | | Organization | | | | + + + + + | [facility] | [address] | [place] [address] | | | SERVICES, CORE | PARK [...] [facility] | [address] | [place], [place] | | | JULIANN SILVA OF CARE | [address] | [address] | | | TESTS | | | [...] | Specimen | + + | Blood - Blood | | (substance) | + + + + + + + | Performing | Address | City/State/Zipcode | Phone Number | | Organization | | | | + + + + + | [facility] | [address] | [place] [address] | | | SERVICES, CORE | PARK [...] | Specimen | + + | Blood - Blood | | (substance) | + + + + + | Narrative | Performed At | + + + | Must order with concurrent CBC INR Therapeutic ranges for full | [facility] | | anticoagulation: INR for Venous Thromboembolism | LABORATORY | | (2.0 - 3.0) INR INR for most patients with mech. valves (2.5 | ARASH, CORE | | - 3.5) INR APTT Therapeutic Range: | | | (75 - 120) sec Heparin levels of 0.35 - 0.7 U/mL | | + + + + + + + + | Performing | Address | City/State/Zipcode | Phone Number | | Organization | | | | + + + + + | [facility] | [address] | [place] [address] | | | ARASH, CORE | TABITHA [...] | Specimen | + + | Blood - Blood | | (substance) | + + + + + | Narrative | Performed At | + + + | PRN dysrhythmia. Starting Amiodarone for runs of VT or multifocal | [facility] | | PVCs PRN dysrhythmia. Starting Amiodarone for runs of VT or | LABORATORY | | multifocal PVCs | И[facility]НА ANTOINE | + + + + + + + + | Performing | Address | City/State/Zipcode | Phone Number | | Organization | | | | + + + + + | [facility] | [address] | [place] [address] | | | ИРИНА ANTOINE | TABITHA [...] | Specimen | + + | Blood - Blood | | (substance) | + + + + + | Narrative | Performed At | + + + | PRN dysrhythmia. Starting Amiodarone for runs of VT or multifocal | [facility] | | PVCs PRN dysrhythmia. Starting Amiodarone for runs of VT or | LABORATORY | | multifocal PVCs | ИРИНА ANTOINE | + + + + + + + + | Performing | Address | City/State/Zipcode | Phone Number | | Organization | | | | + + + + + | [facility] | [address] | [place] [address] | | | ИРИНА ANTOINE | TABITHA [...] [facility] | [address] | [place], [place] | | | [facility] | [address] | [address] | | | TESTS | | | [...] [facility] | [address] | [place], [place] | | | JULIANN SILVA OF [facility] | [address] | [address] | | | TESTS | | | [...] [facility] | [address] | [place], [place] | | | [facility] | [address] | [address] | | | TESTS | | | [...] | Specimen | + + | Blood - Blood | | (substance) | + + + + + | Narrative | Performed At | + + + | IV Trough to be drawn immediately prior to next dose. Prior to 4th | [facility] | | dose for initial therapy. | LABORATORY | | | ИРИНА ANTOINE | + + + + + + + + | Performing | Address | City/State/Zipcode | Phone Number | | Organization | | | | + + + + + | [facility] | [address] | [place] [address] | | | SERVICES, ИРИНА | TABITHA [...] + + + + + + | PIETRO-KIRBY | [address] | ms | [facility] [...] DEPT OF | [address] | [place], [place] | | | CARDIOLOGY | [address] | [address] | | + + + + + [...] [facility] | [address] | [place], [place] | | | JULIANN SILVA OF CARE | [address] | [address] | | | TESTS | | | | + + + + + [id number] RT (03/19/2017 1:04 PM PDT) + + [...] | | | CA,WHOLE | | | HILL, POINT | | | BLD,POC | | [...] | Specimen | + + | Blood - Blood | | (substance) | + + + + + + + | Performing | Address | City/State/Zipcode | Phone Number | | Organization | | | | + + + + + | [facility] | [address] | [place], [place] | | | JULIANN SILVA OF [facility] | [address] | [address] | | | TESTS | | | [...] + + + + | PRODUCT | [id number] | | [facility] | | | UNIT [...] + + + + | EXPIRATION | [id number] | | [facility] | | | DATE [...] + + + + | BLOOD | [id number] | | [facility] | | | PRODUCT [...] [facility] | [address] | [place] [address] | | | SERVICES, | [address] [...] + + + + | PRODUCT | [id number] | | [facility] | | | UNIT [...] + + + + | EXPIRATION | [id number] | | [facility] | | | DATE [...] + + + + | BLOOD | [id number] | | [facility] | | | PRODUCT [...] [facility] | [address] | [place] [address] | | | SERVICES, | [address] [...] + + + + | PRODUCT | [id number] | | [facility] | | | UNIT [...] + + + + | EXPIRATION | [id number] | | [facility] | | | DATE [...] + + + + | BLOOD | [id number] | | [facility] | | | PRODUCT [...] [facility] | [address] | [place] [address] | | | SERVICES, | [address] [...] + + + + | PRODUCT | [id number] | | [facility] | | | UNIT [...] + + + + | EXPIRATION | [id number] | | [facility] | | | DATE [...] + + + + | BLOOD | [id number] | | [facility] | | | PRODUCT [...] [facility] | [address] | [place] [address] | | | SERVICES, | [address] [...] | Specimen | + + | Blood - Blood | | (substance) | + + + + + | [...] | + + + + + | [facility] | [address] | [place] [address] | | | SERVICES, CORE | TABITH[facility] [...] | | | LABORATORY | | | [place] | | | SERVICES, | | | [...] | Specimen | + + | Blood - Blood | | (substance) | + + + + + | [...] | <60 mL/min/1.73 sq m Chronic Kidney Disease | | | <15 mL/min/1.73 sq m Kidney Failure Estimated | | | GFR greater that 60 mL/min/1.73 sq m is of limited clinical value. | | | The MDRD equation is not valid in the following situations: - | | | Patients under 18 years of age - Severe malnutrition or obesity - | | | Vegetarian diet - Rapidly changing kidney function | | + + + + + + + + | Performing | Address | City/State/Zipcode | Phone Number | | Organization | | | | + + + + + | [facility] | [address] | [place] [address] | | | SERVICES, CORE | TAB[facility]A [...] | Specimen | + + | Blood - Blood | | (substance) | + + + + + | [...] | + + + + + | [facility] | [address] | [place] [address] | | | SERVICES, CORE | PARK [...] 1.12 | 0.90 - 1.20 INR | [facility] | | | | | | LABORATORY | | | | | | ARASH, | | | | | | ИРИНА | | + + + + + [...] | Specimen | + + | Blood - Blood | | (substance) | + + + + + | Narrative | Performed At | + + + | Must order with concurrent CBC INR Therapeutic ranges for full | [facility] | | anticoagulation: INR for Venous Thromboembolism | LABORATORY | | (2.0 - 3.0) INR INR for most patients with mech. valves (2.5 | SERVICES, CORE | | - 3.5) INR APTT Therapeutic Range: | | | (75 - 120) sec Heparin levels of 0.35 - 0.7 U/mL | | + + + + + + + + | Performing | Address | City/State/Zipcode | Phone Number | | Organization | | | | + + + + + | [facility] | [address] [facility] [facility] | [place] [address] | | | SERVICES, CORE | [address] | | | + + + + + NV ECMO REV (EXT)AND/OR DECANNULATION (03/19/2017 12:36 PM [...] Siria | | | GISELL Preston PhD [facility] [address] [id number] [place], | | | [place] [address] | | + + + ABG-FULL ABL, POC (03/19/2017 12:14 PM PDT) + + + + + + | Component | Value | Ref Range | Performed | Pathologist | | | | | At | Signature | + + + + + + | PH | 7.42 | 7.37 - 7.44 | [facility] - | | | ARTERIAL, | | [...] | | | POC | | | ANA MARIA | | | | | | JULIANN SILVA | | | | | | OF CARE | | | | | | TESTS | | + + + + + + | POTASSIUM, | 4.1 | 3.4 - 5.0 | [facility] - | | | POC | | mmol/L | MARRANDIAM | | | | | [...] MARIA | [address] | [place], [place] | | | JULIANN SILVA OF [place] | [facility] | [address] | | | TESTS | | | | + + + + + ABG-KARY DE LA CRUZ (03/19/2017 11:27 AM PDT) + + + + + + | Component | Value | Ref Range | Performed | Pathologist | | | | | At | Signature | + + + + + + | PH | 7.48 (H) | 7.37 - 7.44 | [facility] - | | | MARI, | | | ANA MARIA | | | POC | | | [...] [facility] | [address] | [place], [place] | | | JULIANN SILVA OF CARE | [facility] | [address] | | | TESTS | | | | + + + + + SI-FL-ZFF-HB,POC RT (03/19/2017 10:24 AM PDT) + + [...] | | | | | mmol/L | MARLAISHA | | | | | [...] | Specimen | + + | Blood - Blood | | (substance) | + + + + + + + | Performing | Address | City/State/Zipcode | Phone Number | | Organization | | | | + + + + + | [facility] | [address] | [place], [place] | | | JULIANN SILVA OF [place] | [address] | [address] | | | TESTS | | | [...] [facility] | [address] | [place], [place] | | | RICARDO POINT OF CARE | [address] | [address] | | | TESTS | | | | + + + + + TB-FE-OVH-DWAINEPOC RT (03/19/2017 10:06 AM PDT) + + [...] | Specimen | + + | Blood - Blood | | (substance) | + + + + + + + | Performing | Address | City/State/Zipcode | Phone Number | | Organization | | | | + + + + + | [facility] | [address] | [place], [place] | | | JULIANN SILVA OF CARE | [address] | [address] | | | TESTS | | | | + + + + + SH-BI-HRC-HB,POC RT (03/19/2017 9:51 AM PDT) + + [...] | | | | | mmol/L | [facility] | | | | | [...] | Specimen | + + | Blood - Blood | | (substance) | + + + + + + + | Performing | Address | City/State/Zipcode | Phone Number | | Organization | | | | + + + + + | [facility] | [address] | [place], [place] | | | JULIANN SILVA OF [place] | [address] | [address] | | | TESTS | | | [...] + + + + | PRODUCT | [id number] | | [facility] | | | UNIT [...] + + + + | EXPIRATION | [id number] | | [facility] | | | DATE [...] + + + + | BLOOD | [id number] | | [facility] | | | PRODUCT [...] | + + + + + | [facility] | [address] | [place] [address] | | | SERVICES, | [address] [...] + + + + | PRODUCT | [id number] | | [facility] | | | UNIT [...] + + + + | EXPIRATION | [id number] | | [facility] | | | DATE [...] + + + + | BLOOD | [id number] | | [facility] | | | PRODUCT [...] [facility] | [address] | [place] [address] | | | SERVICES, | [address] [...] + + + + | PRODUCT | [id number] | | [facility] | | | UNIT [...] + + + + | EXPIRATION | [id number] | | [facility] | | | DATE [...] + + + + | BLOOD | [id number] | | [facility] | | | PRODUCT [...] [facility] | [address] | [place] [address] | | | SERVICES, | [address] [...] + + + + | PRODUCT | [id number] | | [facility] | | | UNIT [...] + + + + | EXPIRATION | [id number] | | [facility] | | | DATE [...] + + + + | BLOOD | [id number] | | [facility] | | | PRODUCT [...] | + + + + + | [facility] | [address] [facility] | [place] [address] | | | ARASH, | [address] | | | | TRANSFUSION MEDICINE | | | | + + + + + X-RAY PORTABLE CHEST 1 VIEW (03/19/2017 9:13 AM PDT) + + | Specimen | + + | | + + + + + | Narrative | Performed At | + + + | EXAM: NV CHEST 1 VIEW HISTORY: ECMO. Evaluate cannula | [facility] | | placement. COMPARISON: Yesterday FINDINGS: Endotracheal | RADIOLOGY VOICE | | tube, [place]-Олег catheter and enteric tube remain in place. [...] Note | + + | Service Account, Arely Mckenna In Interface - 03/19/2017 9:17 AM PDT EXAM: NV CHEST 1 | | VIEW HISTORY: ECMO. Evaluate cannula placement.COMPARISON: YesterdayFINDINGS: | | Endotracheal tube, [place]-Олег catheter and enteric tube remain in place. [...] [facility] | [address] | [place], [place] | | | JULIANN SILVA OF CARE | [address] | [address] | | | TESTS | | | [...] [facility] | [address] | [place], [place] | | | JULIANN SILVA OF CARE | [address] | [address] | | | TESTS | | | [...] | Specimen | + + | Blood - Blood | | (substance) | + + + + + + + | Performing | Address | City/State/Zipcode | Phone Number | | Organization | | | | + + + + + | [facility] | [address] | [place] [address] | | | SERVICES, CORE | [address] [...] (H) | 70 - 99 mg/dL | [facility] - | | | GLUCOSE, | | [...] + + + | [facility] | [address] | [place], [place] | | | RICARDO BALLICO OF [facility] | [address] | [address] | | | TESTS | | | [...] [facility] | [address] | [place], [place] | | | JULIANN SILVA OF [place] | [address] | [address] | | | TESTS | | | [...] - [facility] | [address] | [place], [place] | | | RICARDO POINT OF CARE | [address] | [address] | | | TESTS | | | [...] (H) | 70 - 99 mg/dL | [facility] | | | GLUCOSE, | | [...] [facility] | [address] | [place], [place] | | | RICARDO POINT OF [facility] | [address] | [address] | | | TESTS | | | [...] | Specimen | + + | Blood - Blood | | (substance) | + + + + + | [...] - Therapeutic Ranges: Heparin, Unfractionated: 0.35 - 0.70 | | | U/mL Enoxaparin, LMWH: 0.70 - 1.20 U/mL Dalteparin, | | | LMWH: 0.70 - 1.20 U/mL Tinzaparin, LMWH: | | | Therapeutic range not established. | | | Preliminary studies suggest range | | | similar to dalteparin. Clinical | | | correlation required. Heparin levels may be unreliable | | | for: Total bilirubin >28.8 | | | mg/dL Triglycerides >690 | | | mg/dL or Moderate to Gross | | | Hemolysis | | + + + + + + + + | Performing | Address | City/State/Zipcode | Phone Number | | Organization | | | | + + + + + | [facility] | [address] | [place] [address] | | | SERVICES, ИРИНА | TABITH[address] [...] [facility] | [address] | [place], [place] | | | JULIANN SILVA OF [place] | [facility] | [address] | | | TESTS | | | [...] (H) | 70 - 99 mg/dL | [facility] - | | | GLUCOSE, | | [...] [facility] | [address] | [place], [place] | | | RICARDO POINT OF CARE | [address] | [address] | | | TESTS | | | [...] + + | Performing | Address | City/State/[facility] | Phone Number | | Organization | | | | + + + + + | [facility] | [address] | [place], [place] | | | GURINDER SILVA | [facility] | [address] | | | TESTS | | | [...] | Specimen | + + | Blood - Blood | | (substance) | + + + + + + + | Performing | Address | City/State/Zipcode | Phone Number | | Organization | | | | + + + + + | [facility] | [address] | [place] [address] | | | ARASH, ИРИНА | [address] [...] (A) | 5 - 10 Minutes | [facility] - | | | CITRATED | | | [facility] | | | | | | JULIANN SILVA | | | | | | OF CARE | | | | | | TESTS | | + + + + + + | K - | 1.8 | 1 - 3 Minutes | [facility] - | | | CITRATED | | | [facility] | | | | | | JULINAN SILVA | | [...] | Specimen | + + | Blood - Blood | | (substance) | + + + + + | [...] [facility] | [address] | [place], [place] | | | JULIANN SILVA OF [place] | [address] | [address] | | | TESTS | | | [...] | Specimen | + + | Blood - Blood | | (substance) | + + + + + | Narrative | Performed At | + + + | Immature Granulocytes (IG) include metamyelocytes, myelocytes | [facility] | | and promyelocytes. Bands are not included in the IG count. Bands are | LABORATORY | | included in the neutrophil count. | ИРИНА ANTOINE | + + + + + + + + | Performing | Address | City/State/Zipcode | Phone Number | | Organization | | | | + + + + + | [facility] | [address] | [place] [address] | | | ИРИНА ANTOINE | TABITH[address] [...] | Specimen | + + | Blood - Blood | | (substance) | + + + + + | [...] [facility] | [address] | [place] [address] | | | SERVICES, CORE | PARK [...] | Specimen | + + | Blood - Blood | | (substance) | + + + + + | [...] | + + + + + | [facility] | [address] | [place] [address] | | | ИРИНА ANTOINE | TABITH[address] [...] | Specimen | + + | Blood - Blood | | (substance) | + + + + + + + | Performing | Address | City/State/Zipcode | Phone Number | | Organization | | | | + + + + + | [facility] | [address] | [place] [address] | | | SERVICES, CORE | PARK [...] | Specimen | + + | Blood - Blood | | (substance) | + + + + + + + | Performing | Address | City/State/Zipcode | Phone Number | | Organization | | | | + + + + + | [facility] | [address] | [place] [address] | | | SERVICES, CORE | [address] | | | + [...] | Specimen | + + | Blood - Blood | | (substance) | + + + + + | Narrative | Performed At | + + + | 2 hrs after intravenous magnesium repletion if magnesium < 1.6. | [facility] | | | LABORATORY | | | ИРИНА ANTOINE | + + + + + + + + | Performing | Address | City/State/Zipcode | Phone Number | | Organization | | | | + + + + + | [facility] | [address] | [place] [address] | | | SERVICES, ИРИАН | [address] | | | + [...] | | | LABORATORY | | | SALVADOREAN | | | SERVICES, | | | [...] | Specimen | + + | Blood - Blood | | (substance) | + + + + + | [...] | <60 mL/min/1.73 sq m Chronic Kidney Disease | | | <15 mL/min/1.73 sq m Kidney Failure Estimated | | | GFR greater that 60 mL/min/1.73 sq m is of limited clinical value. | | | The MDRD equation is not valid in the following situations: - | | | Patients under 18 years of age - Severe malnutrition or obesity - | | | Vegetarian diet - Rapidly changing kidney function | | + + + + + + + + | Performing | Address | City/State/Zipcode | Phone Number | | Organization | | | | + + + + + | [facility] | [address] | [place] [address] | | | SERVICES, CORE | [address] [...] | Specimen | + + | Blood - Blood | | (substance) | + + + + + | Narrative | Performed At | + + + | Must order with concurrent CBC INR Therapeutic ranges for full | [facility] | | anticoagulation: INR for Venous Thromboembolism | LABORATORY | | (2.0 - 3.0) INR INR for most patients with mech. valves (2.5 | SERVICES, CORE | | - 3.5) INR APTT Therapeutic Range: | | | (75 - 120) sec Heparin levels of 0.35 - 0.7 U/mL | | + + + + + + + + | Performing | Address | City/State/Zipcode | Phone Number | | Organization | | | | + + + + + | [facility] | [address] | [place] [address] | | | SERVICES, CORE | PARK [...] | Specimen | + + | Blood - Blood | | (substance) | + + + + + + + | Performing | Address | City/State/Zipcode | Phone Number | | Organization | | | | + + + + + | [facility] | [address] | [place] [address] | | | SERVICES, CORE | TABITH[address] [...] MARIA | [address] | [place], [place] | | | JULIANN SILVA OF [place] | [address] | [address] | | | TESTS | | | [...] | Specimen | + + | Blood - Blood | | (substance) | + + + + + | [...] | + + + + + | [facility] | [address] | [place] [address] | | | SERVICES, CORE | TABITHA [...] MARIA | [address] | [place], [place] | | | JULIANN SILVA OF [place] | [address] | [address] | | | TESTS | | | [...] [facility] | [address] | [place], [place] | | | JULIANN SILVA OF [facility] | [address] | [address] | | | TESTS | | | [...] | Specimen | + + | Blood - Blood | | (substance) | + + + + + | [...] - Therapeutic Ranges: Heparin, Unfractionated: 0.35 - 0.70 | | | U/mL Enoxaparin, LMWH: 0.70 - 1.20 U/mL Dalteparin, | | | LMWH: 0.70 - 1.20 U/mL Tinzaparin, LMWH: | | | Therapeutic range not established. | | | Preliminary studies suggest range | | | similar to dalteparin. Clinical | | | correlation required. Heparin levels may be unreliable | | | for: Total bilirubin >28.8 | | | mg/dL Triglycerides >690 | | | mg/dL or Moderate to Gross | | | Hemolysis | | + + + + + + + + | Performing | Address | City/State/Zipcode | Phone Number | | Organization | | | | + + + + + | [facility] | [address] | [place] [address] | | | SERVICES, CORE | [address]ITH[address] [...] (H) | 70 - 99 mg/dL | [facility] - | | | GLUCOSE, | | [...] [facility] | [address] | [place], [place] | | | JULIANN SILVA OF CARE | [address] | [address] | | | TESTS | | | [...] [facility] | [address] | [place], [place] | | | HILL, POINT OF CARE | [address] | [address] | | | TESTS | | | [...] [facility] | [address] | [place], [place] | | | JULIANN SILVA OF CARE | [address] | [address] | | | TESTS | | | [...] | Specimen | + + | Blood - Blood | | (substance) | + + + + + | [...] [facility] | [address] | [place] [address] | | | SERVICES, CORE | PARK [...] | Specimen | + + | Blood - Blood | | (substance) | + + + + + | [...] | + + + + + | [facility] | [address] | [place] [address] | | | SERVICES, CORE | TABITH[address] [...] [facility] | [address] | [place], [place] | | | JULIANN SILVA OF [place] | [address] | [address] | | | TESTS | | | [...] | Specimen | + + | Blood - Blood | | (substance) | + + + + + | [...] - Therapeutic Ranges: Heparin, Unfractionated: 0.35 - 0.70 | | | U/mL Enoxaparin, LMWH: 0.70 - 1.20 U/mL Dalteparin, | | | LMWH: 0.70 - 1.20 U/mL Tinzaparin, LMWH: | | | Therapeutic range not established. | | | Preliminary studies suggest range | | | similar to dalteparin. Clinical | | | correlation required. Heparin levels may be unreliable | | | for: Total bilirubin >28.8 | | | mg/dL Triglycerides >690 | | | mg/dL or Moderate to Gross | | | Hemolysis | | + + + + + + + + | Performing | Address | City/State/Zipcode | Phone Number | | Organization | | | | + + + + + | [facility] | [address] | [place] [address] | | | ИРИНА ANTOINE | TABITH[address] [...] (H) | 70 - 99 mg/dL | [facility] - | | | GLUCOSE, | | [...] [facility] | [address] | [place], [place] | | | RICARDO POINT OF CARE | [address] | [address] | | | TESTS | | | [...] MARIA | [address] | [place], [place] | | | JULIANN SILVA OF [place] | [address] | [address] | | | TESTS | | | [...] | Specimen | + + | Blood - Blood | | (substance) | + + + + + + + | Performing | Address | City/State/Zipcode | Phone Number | | Organization | | | | + + + + + | [facility] | [address] | [place] [address] | | | SERVICES, CORE | PARK [...] | Specimen | + + | Blood - Blood | | (substance) | + + + + + | Narrative | Performed At | + + + | Triglyceride Reference Range: Normal: <150 | [facility] | | mg/dL Borderline High: 150-199 mg/dL High: | LABORATORY | | 200-499 mg/dL Very High: >=500 mg/dL | SERVICES, CORE | + + + + + + + + | Performing | Address | City/State/Zipcode | Phone Number | | Organization | | | | + + + + + | [facility] | [address] | [place] [address] | | | ИРИНА ANTOINE | TABITHA [...] (H) | 70 - 99 mg/dL | [facility] - | | | GLUCOSE, | | [...] [facility] | [address] | [place], [place] | | | RICARDO POINT OF CARE | [address] | [address] | | | TESTS | | | [...] [facility] | [address] | [place], [place] | | | JULIANN SILVA OF [place] | [facility] | [address] | | | TESTS | | | [...] | Specimen | + + | Blood - Blood | | (substance) | + + + + + | [...] | + + + + + | [facility] | [address] [facility] | [place] [address] | | | SERVICES, CORE | TABITHA [...] | Specimen | + + | Blood - Blood | | (substance) | + + + + + + + | Performing | Address | City/State/Zipcode | Phone Number | | Organization | | | | + + + + + | [facility] | [address] | [place] [address] | | | SERVICES, CORE | PARK [...] | Specimen | + + | Blood - Blood | | (substance) | + + + + + + + | Performing | Address | City/State/Zipcode | Phone Number | | Organization | | | | + + + + + | [facility] | [address] | [place] [address] | | | SERVICES, ИРИНА | TABITHA [...] | Specimen | + + | Blood - Blood | | (substance) | + + + + + | [...] + + | [facility] | [address] [facility] [facility] [address] | [place] [address] | | | SERVICES, CORE | PARK [...] | | | LABORATORY | | | SALVADOREAN | | | SERVICES, | | | [...] | Specimen | + + | Blood - Blood | | (substance) | + + + + + | [...] | <60 mL/min/1.73 sq m Chronic Kidney Disease | | | <15 mL/min/1.73 sq m Kidney Failure Estimated | | | GFR greater that 60 mL/min/1.73 sq m is of limited clinical value. | | | The MDRD equation is not valid in the following situations: - | | | Patients under 18 years of age - Severe malnutrition or obesity - | | | Vegetarian diet - Rapidly changing kidney function | | + + + + + + + + | Performing | Address | City/State/Zipcode | Phone Number | | Organization | | | | + + + + + | [facility] | [address] | [place] [address] | | | SERVICES, CORE | PARK [...] | Specimen | + + | Blood - Blood | | (substance) | + + + + + | Narrative | Performed At | + + + | Must order with concurrent CBC INR Therapeutic ranges for full | [facility] | | anticoagulation: INR for Venous Thromboembolism | LABORATORY | | (2.0 - 3.0) INR INR for most patients with mech. valves (2.5 | SERVICES, CORE | | - 3.5) INR APTT Therapeutic Range: | | | (75 - 120) sec Heparin levels of 0.35 - 0.7 U/mL | | + + + + + + + + | Performing | Address | City/State/Zipcode | Phone Number | | Organization | | | | + + + + + | [facility] | [address] | [place] [address] | | | SERVICES, CORE | TABITHA [...] | Specimen | + + | Blood - Blood | | (substance) | + + + + + | [...] | + + + + + | [facility] | [address] | [place] [address] | | | SERVICES, CORE | TABITHA [...] | Specimen | + + | Blood - Blood | | (substance) | + + + + + + + | Performing | Address | City/State/Zipcode | Phone Number | | Organization | | | | + + + + + | [facility] | [address] | [place] [address] | | | SERVICES, CORE | TABITHA [...] - [facility] | [address] | [place], [place] | | | JULIANN SILVA OF CARE | [address] | [address] | | | TESTS | | | [...] + + + | [facility] | [address] | [place], [place] | | | RICARDO POINT OF CARE | [address] | [address] | | | TESTS | | | [...] | Specimen | + + | Blood - Blood | | (substance) | + + + + + + + | Performing | Address | City/State/Zipcode | Phone Number | | Organization | | | | + + + + + | [facility] | [address] | [place] [address] | | | SERVICES, CORE | PARK [...] MARIA | [address] | [place], [place] | | | RICARDO POINT OF [facility] | [address] | [address] | | | TESTS | | | [...] | Specimen | + + | Blood - Blood | | (substance) | + + + + + | [...] - Therapeutic Ranges: Heparin, Unfractionated: 0.35 - 0.70 | | | U/mL Enoxaparin, LMWH: 0.70 - 1.20 U/mL Dalteparin, | | | LMWH: 0.70 - 1.20 U/mL Tinzaparin, LMWH: | | | Therapeutic range not established. | | | Preliminary studies suggest range | | | similar to dalteparin. Clinical | | | correlation required. Heparin levels may be unreliable | | | for: Total bilirubin >28.8 | | | mg/dL Triglycerides >690 | | | mg/dL or Moderate to Gross | | | Hemolysis | | + + + + + + + + | Performing | Address | City/State/Zipcode | Phone Number | | Organization | | | | + + + + + | [facility] | [address] | [place] [address] | | | SERVICES, CORE | PARK [...] | Specimen | + + | Blood - Blood | | (substance) | + + + + + + + | Performing | Address | City/State/Zipcode | Phone Number | | Organization | | | | + + + + + | [facility] | [address] | [place] [address] | | | ARASH, CORE | [address] | | | + + + + + CULTURE, SPUTUM (03/18/2017 9:28 AM PDT) + + | Specimen | + + | Endotracheal fluid - | | Specimen from | | endotracheal tube | | (specimen) | + + + + + | [...] | + + + + + | [facility] - | [address] | [place] [address] | | | [place] | | | | + + + [...] [facility] | [address] | [place], [place] | | | JULIANN SILVA OF [place] | [address] | [address] | | | TESTS | | | [...] [facility] | [address] | [place], [place] | | | JULIANN SILVA OF CARE | [address] | [address] | | | TESTS | | | [...] | Specimen | + + | Blood - Blood | | (substance) | + + + + + | [...] [facility] | [address] | [place] [address] | | | SERVICES, CORE | PARK [...] | Specimen | + + | Blood - Blood | | (substance) | + + + + + | [...] | + + + + + | [facility] | [address] | [place] [address] | | | SERVICES, CORE | TABITHA [...] (H) | 70 - 99 mg/dL | [facility] - | | | GLUCOSE, | | [...] + + + | [facility] | [address] | [place], [place] | | | [facility] | [address] | [address] | | | TESTS | | | [...] [facility] | [address] | [place], [place] | | | [facility] | [address] | [address] | | | TESTS | | | | + + + + + X-RAY PORTABLE CHEST 1 VIEW (03/18/2017 6:05 AM PDT) + + | Specimen | + + | | + + + + + | Narrative | Performed At | + + + | EXAM: NV CHEST 1 VIEW HISTORY: ECMO. Evaluate cannula placement. | [facility] | | COMPARISON: Yesterday FINDINGS: Endotracheal tube tip is | RADIOLOGY VOICE | | 2.5 cm above the jefferson. Enteric tube tip in the stomach. [place] | RECOGNITION | | catheter tip projects [...] Note | + + | Service Account, [employer] In Interface - 03/18/2017 8:39 AM PDT EXAM: NV CHEST 1 | | VIEW HISTORY: ECMO. Evaluate cannula placement.COMPARISON: YesterdayFINDINGS: | | Endotracheal tube tip is 2.5 cm above the jefferson. Enteric tube tip in the stomach. | | [place] catheter tip projects in the main pulmonary [...] - [facility] | [address] | [place], [place] | | | [facility] | [address] | [address] | | | TESTS | | | [...] (H) | 60 - 99 mg/dL | [facility] | | | GLUCOSE, | | [...] [facility] | [address] | [place], [place] | | | [facility] | [address] | [address] | | | TESTS | | | [...] | Specimen | + + | Blood - Blood | | (substance) | + + + + + | [...] - Therapeutic Ranges: Heparin, Unfractionated: 0.35 - 0.70 | | | U/mL Enoxaparin, LMWH: 0.70 - 1.20 U/mL Dalteparin, | | | LMWH: 0.70 - 1.20 U/mL Tinzaparin, LMWH: | | | Therapeutic range not established. | | | Preliminary studies suggest range | | | similar to dalteparin. Clinical | | | correlation required. Heparin levels may be unreliable | | | for: Total bilirubin >28.8 | | | mg/dL Triglycerides >690 | | | mg/dL or Moderate to Gross | | | Hemolysis | | + + + + + + + + | Performing | Address | City/State/Zipcode | Phone Number | | Organization | | | | + + + + + | [facility] | [address] | [place] [address] | | | SERVICES, ИРИНА | TABITHA [...] [facility] | [address] | [place], [place] | | | [facility] | [facility] | [address] | | | TESTS | | | [...] (H) | 60 - 99 mg/dL | [facility] - | | | GLUCOSE, | | [...] MARIA | [address] | [place], [place] | | | R[facility]O POINT OF CARE | [address] | [address] | | | TESTS | | | [...] | Specimen | + + | Blood - Blood | | (substance) | + + + + + + + | Performing | Address | City/State/Zipcode | Phone Number | | Organization | | | | + + + + + | [facility] | [address] | [place] [address] | | | ARASH, | [address] | | | | [...] | Specimen | + + | Blood - Blood | | (substance) | + + + + + + + | Performing | Address | City/State/Zipcode | Phone Number | | Organization | | | | + + + + + | [facility] | [address] | [place] [address] | | | SERVICES, | [address] [...] + + + + | PRODUCT | [id number] | | [facility] | | | UNIT [...] + + + + | EXPIRATION | [id number] | | [facility] | | | DATE [...] + + + + | BLOOD | [id number] | | [facility] | | | PRODUCT [...] | + + + + + | [facility] | [address] | [place] [address] | | | SERVICES, | [address] [...] (A) | 5 - 10 Minutes | E[facility] - | | | CITRATED | | | [facility] | | | | | | JULIANN SILVA | | | | | | OF CARE | | | | | | TESTS | | + + + + + + | K - | 3.1 (A) | 1 - 3 Minutes | [facility] [...] | | | CITRATED | | | [facility] | | | | | | JULIANN [...] | Specimen | + + | Blood - Blood | | (substance) | + + + + + | Impressions | Performed At | + + + | A standard citrated kaolin TEG was performed Prolonged R time | [facility] - | | corresponds to decreased soluble coagulation factors suggesting | [facility] | | HYPOcoagulability. Elevated ALPHA angle corresponds [...] R[facility] | [address] | [place], [place] | | | JULIANN SILVA OF [place] | [address] | [address] | | | TESTS | | | [...] | Specimen | + + | Blood - Blood | | (substance) | + + + + + + + | Performing | Address | City/State/Zipcode | Phone Number | | Organization | | | | + + + + + | [facility] | [address] | [place] [address] | | | SERVICES, CORE | PARK [...] 10.87 (H) | 3.50 - 10.80 | [facility] | | | COUNT | | K/cu [...] | Specimen | + + | Blood - Blood | | (substance) | + + + + + | Narrative | Performed At | + + + | Immature Granulocytes (IG) include metamyelocytes, myelocytes | [facility] | | and promyelocytes. Bands are not included in the IG count. Bands are | LABORATORY | | included in the neutrophil count. | SERVICES, CORE | + + + + + + + + | Performing | Address | City/State/Zipcode | Phone Number | | Organization | | | | + + + + + | [facility] | [address] | [place] [address] | | | SERVICES, CORE | PARK [...] | Specimen | + + | Blood - Blood | | (substance) | + + + + + + + | Performing | Address | City/State/Zipcode | Phone Number | | Organization | | | | + + + + + | [facility] | [address] | [place] [address] | | | SERVICES, CORE | TABITHA [...] | Specimen | + + | Blood - Blood | | (substance) | + + + + + + + | Performing | Address | City/State/Zipcode | Phone Number | | Organization | | | | + + + + + | [facility] | [address] | [place] [address] | | | SERVICES, CORE | PARK [...] | | | LABORATORY | | | SALVADOREAN | | | SERVICES, | | | [...] | Specimen | + + | Blood - Blood | | (substance) | + + + + + | Narrative | Performed At | + + + | GFR is estimated using the MDRD equation recommended by the | [facility] | | National Kidney Disease Education Program. Estimated GFR | LABORATORY | | Interpretive Information: <60 mL/min/1.73 sq m | SERVICES, CORE | | Chronic Kidney Disease <15 mL/min/1.73 sq m | [...] | + + + + + | [facility] | [address] [facility] | [place] [address] | | | SERVICES, CORE | PARK [...] | Specimen | + + | Blood - Blood | | (substance) | + + + + + | Narrative | Performed At | + + + | Must order with concurrent CBC INR Therapeutic ranges for full | [facility] | | anticoagulation: INR for Venous Thromboembolism | LABORATORY | | (2.0 - 3.0) INR INR for most patients with mech. valves (2.5 | SERVICES, CORE | | - 3.5) INR APTT Therapeutic Range: | | | (75 - 120) sec Heparin levels of 0.35 - 0.7 U/mL | | + + + + + + + + | Performing | Address | City/State/Zipcode | Phone Number | | Organization | | | | + + + + + | [facility] | [address] | [place] [address] | | | SERVICES, CORE | [address] | | | + + + + + MAGNESIUM, PLASMA (03/18/2017 1:19 AM PDT) + +-------+ + + + | Component | Value | Ref Range | Performed | Pathologist | | | | | At | Signature | + +-------+ + + + | MAGNESIUM,P | 2.3 | 1.8 - 2.5 mg/dL | [facility] | | | [facility] | | | LABORATORY | | | | | | ARASH, | | | | | | CORE | | + +-------+ + + + + + | Specimen | + + | Blood - Blood | | (substance) | + + + + + + + | Performing | Address | City/State/Zipcode | Phone Number | | Organization | | | | + + + + + | [facility] | [address] | [place] [address] | | | SERVICES, CORE | TABITHA [...] | Specimen | + + | Blood - Blood | | (substance) | + + + + + + + | Performing | Address | City/State/Zipcode | Phone Number | | Organization | | | | + + + + + | [facility] | [address] | [place] [address] | | | SERVICES, CORE | PARK [...] ANA MARIA | [address] | [place], [place] | | | JULIANN SILVA OF [facility] | [facility] | [address] | | | TESTS | | | | + + + + + CULTURE, BLOOD BACTI & YEAST OH (03/18/2017 12:48 AM PDT) + + + [...] | Specimen | + + | Blood - Structure of | | left foot (body | | structure) | + + + + + + + | Performing | Address | City/State/Zipcode | Phone Number | | Organization | | | | + + + + + | [facility] | [address] | [place] [address] | | | SERVICES, ИРИНА | TABITHA [...] | Specimen | + + | Blood - Structure of | | right foot (body | | structure) | + + + + + + + | Performing | Address | City/State/Zipcode | Phone Number | | Organization | | | | + + + + + | [facility] | [address] | [place] [address] | | | ARASH, ИРИНА | [address] [...] (H) | 60 - 99 mg/dL | [facility] - | | | GLUCOSE, | | [...] [facility] | [address] | [place], [place] | | | JULIANN SILVA OF [place] | [facility] | [address] | | | TESTS | | | [...] [facility] | [address] | [place], [place] | | | RICARDO POINT OF CARE | [address] | [address] | | | TESTS | | | [...] [facility] | [address] | [place], [place] | | | JULIANN SILVA OF CARE | [facility] | [address] | | | TESTS | | | [...] MARIA | [address] | [place], [place] | | | JULIANN SILVA OF [facility] | [address] | [address] | | | TESTS | | | [...] | Specimen | + + | Blood - Blood | | (substance) | + + + + + | [...] - Therapeutic Ranges: Heparin, Unfractionated: 0.35 - 0.70 | | | U/mL Enoxaparin, LMWH: 0.70 - 1.20 U/mL Dalteparin, | | | LMWH: 0.70 - 1.20 U/mL Tinzaparin, LMWH: | | | Therapeutic range not established. | | | Preliminary studies suggest range | | | similar to dalteparin. Clinical | | | correlation required. Heparin levels may be unreliable | | | for: Total bilirubin >28.8 | | | mg/dL Triglycerides >690 | | | mg/dL or Moderate to Gross | | | Hemolysis | | + + + + + + + + | Performing | Address | City/State/Zipcode | Phone Number | | Organization | | | | + + + + + | [facility] | [address] | [place] [address] | | | SERVICES, CORE | TABITHA [...] [facility] | [address] | [place], [place] | | | JULIANN SILVA OF CARE | [address] | [address] | | | TESTS | | | [...] | Specimen | + + | Blood - Blood | | (substance) | + + + + + | [...] [facility] | [address] | [place] [address] | | | SERVICES, CORE | PARK [...] | Specimen | + + | Blood - Blood | | (substance) | + + + + + | [...] [facility] | [address] | [place] [address] | | | SERVICES, CORE | PARK [...] | Specimen | + + | Blood - Blood | | (substance) | + + + + + + + | Performing | Address | City/State/Zipcode | Phone Number | | Organization | | | | + + + + + | [facility] | [address] | [place] [address] | | | SERVICES, CORE | TABITHA [...] | Specimen | + + | Blood - Blood | | (substance) | + + + + + + + | Performing | Address | City/State/Zipcode | Phone Number | | Organization | | | | + + + + + | [facility] | [address] | [place] [address] | | | SERVICES, CORE | PARK [...] | Specimen | + + | Blood - Blood | | (substance) | + + + + + + + | Performing | Address | City/State/Zipcode | Phone Number | | Organization | | | | + + + + + | [facility] | [address] | [place] [address] | | | SERVICES, CORE | TABITHA [...] (H) | 60 - 99 mg/dL | [facility] - | | | GLUCOSE, | | [...] + + + | [facility] | [address] | [place], [place] | | | RICARDO POINT OF CARE | [address] | [address] | | | TESTS | | | [...] [facility] | [address] | [place], [place] | | | R[facility]O POINT OF CARE | [address] | [address] | | | TESTS | | | [...] | Specimen | + + | Blood - Blood | | (substance) | + + + + + + + | Performing | Address | City/State/Zipcode | Phone Number | | Organization | | | | + + + + + | [facility] | [address] | [place] [address] | | | SERVICES, CORE | TABITHA [...] RODGERS | [address] | [place], [place] | | | RICARDO POINT OF CARE | [address] | [address] | | | TESTS | | | [...] [facility] | [address] | [place], [place] | | | RICARDO POINT OF CARE | [address] | [address] | | | TESTS | | | [...] + + + + | PRODUCT | [id number] | | [facility] | | | UNIT [...] + + + + | EXPIRATION | [id number] | | [facility] | | | DATE [...] + + + + | BLOOD | [id number] | | [facility] | | | PRODUCT [...] [facility] | [address] | [place] [address] | | | SERVICES, | [address] [...] + + + + | PRODUCT | [id number] | | [facility] | | | UNIT [...] + + + + | EXPIRATION | [id number] | | [facility] | | | DATE [...] + + + + | BLOOD | [id number] | | [facility] | | | PRODUCT [...] | + + + + + | [facility] | [address] | [place] [address] | | | ARASH, | [address] | | | | [...] (H) | 60 - 99 mg/dL | [facility] - | | | GLUCOSE, | | [...] [facility] | [address] | [place], [place] | | | RICARDO POINT OF CARE | [address] | [address] | | | TESTS | | | [...] | Specimen | + + | Blood - Blood | | (substance) | + + + + + | [...] [facility] | [address] | [place] [address] | | | SERVICESИРИНА | [address] | | | + [...] | Specimen | + + | Blood - Blood | | (substance) | + + + + + | [...] | LMWH: 0.70 - 1.20 U/mL Dalteparin, LMWH: 0.70 | | | - 1.20 U/mL Tinzaparin, LMWH: Therapeutic range not | | | established. Preliminary | | | studies suggest range similar | | | to dalteparin. Clinical | | | correlation required. Heparin levels may be unreliable for: | | | Total bilirubin >28.8 mg/dL | | | Triglycerides >690 mg/dL | | | or Moderate to Gross Hemolysis | | + + + + + + + + | Performing | Address | City/State/Zipcode | Phone Number | | Organization | | | | + + + + + | [facility] | [address] | [place] [address] | | | SERVICES, CORE | PARK [...] | Specimen | + + | Blood - Blood | | (substance) | + + + + + | [...] [facility] | [address] | [place] [address] | | | ИРИНА ANTOINE | PARK [...] | Specimen | + + | Blood - Blood | | (substance) | + + + + + + + | Performing | Address | City/State/Zipcode | Phone Number | | Organization | | | | + + + + + | [facility] | [address] | [place] [address] | | | SERVICES, CORE | [address] | | | + [...] | | | LABORATORY | | | SALVADOREAN | | | SERVICES, | | | [...] | Specimen | + + | Blood - Blood | | (substance) | + + + + + | Narrative | Performed At | + + + | GFR is estimated using the MDRD equation recommended by the | [facility] | | National Kidney Disease Education Program. Estimated GFR | LABORATORY | | Interpretive Information: <60 mL/min/1.73 sq m | SERVICES, CORE | | Chronic Kidney Disease <15 mL/min/1.73 sq m | [...] | + + + + + | [facility] | [address] | [place] [address] | | | SERVICES, CORE | [address] [...] | Specimen | + + | Blood - Blood | | (substance) | + + + + + | [...] | | | anticoagulation: INR for Venous Thromboembolism | | | (2.0 - 3.0) INR INR for most patients with mech. valves (2.5 | | | - 3.5) INR APTT Therapeutic Range: | | | (75 - 120) sec Heparin levels of 0.35 - 0.7 U/mL | | + + + + + + + + | Performing | Address | City/State/Zipcode | Phone Number | | Organization | | | | + + + + + | [facility] | [address] | [place] [address] | | | SERVICES, CORE | PARK [...] | Specimen | + + | Blood - Blood | | (substance) | + + + + + + + | Performing | Address | City/State/Zipcode | Phone Number | | Organization | | | | + + + + + | [facility] | [address] | [place] [address] | | | SERVICES, CORE | TABITH[address] [...] | Specimen | + + | Blood - Blood | | (substance) | + + + + + + + | Performing | Address | City/State/Zipcode | Phone Number | | Organization | | | | + + + + + | [facility] | [address] | [place] [address] | | | SERVICES, CORE | PARK [...] | [facility] | [address] | [place], [place] | | | RICARDO BALLICO OF [facility] | [address] | [address] | | | TESTS | | | [...] | Specimen | + + | Blood - Blood | | (substance) | + + + + + + + | Performing | Address | City/State/Zipcode | Phone Number | | Organization | | | | + + + + + | [facility] | [address] | [place] [address] | | | SERVICES, CORE | [address] [...] [facility] | [address] | [place], [place] | | | JULIANN SIVLA OF CARE | [address] | [address] | | | TESTS | | | | + + + + + [facility] DUPLEX LOWER EXTREMITY RT (03/17/2017 12:31 [...] Note | + + | Service Account, Sqeeqee In Interface - 03/17/2017 6:18 PM PDT [...] aorta is 3.9 cm. The proximal aorta, supra | US | | renal aorta and bilateral common iliac arteries could not be | | | visualized secondary to overlying bowel gas. Conclusions: An | | | abnormal examination demonstrating a 3.9 cm infrarenal abdominal | | | aortic aneurysm. The proximal aorta, supra renal aorta and bilateral | | | common iliac arteries could not be visualized secondary to overlying | | | bowel gas. I have personally reviewed the images and, if | | | necessary, edited the report. I agree with the report as now | | | presented. | | + + + + + | Procedure Note | + + | Service Account, Sqeeqee In Interface - 03/17/2017 6:17 PM PDT [...] [facility] | [address] | [place], [place] | | | RICARDO POINT OF CARE | [address] | [address] | | | TESTS | | | [...] | Specimen | + + | Blood - Blood | | (substance) | + + + + + + + | Performing | Address | City/State/Zipcode | Phone Number | | Organization | | | | + + + + + | [facility] | [address] | [place] [address] | | | SERVICES, CORE | [address]ITH[address] [...] + + | | + + + +---- + | Narrative | Per formed At | + +---- + | [facility] | [facility] DEPT OF | | [facility] Adult Echocardiography Laboratory [address]OLOGY | | [place], [place] [address] Ph: | | | Pt Name: RON MCKEON | | | Study Date/Time 03/17/2017 / 10:30:26 AMMRN: [id number] | | | Most recent prior: 03/15/2017Acc #: [id number] | | | No. previous echos: 1DOB: 1955 61 years Heart | | | Rate: 139 bpmHeight: 69.0 in Blood | | | Pressure: 133/83 mm/HgWeight: 258.0 lb | | | Gender: MBSA: 2.30 m2 | | | Order ID: [id number] Postal Service Clerk: Mauri Domingo LORENZO | | | Referring Provider: Mellisa HajiPatient Location: [facility] | | | Performed: Limited 2D, Color Doppler and Spectral Doppler | | | Limited.Study Quality: Fair.Exam Indication: Heart failure; ECMO; s/p | | | STEMIHistory: 61 year old male with a past medical history significant | | | for hypertension, hyperlipidemia, ongoing tobacco use and | | | pre-diabetes who is transferred to [facility] with cardiogenic shock in the | | | setting of an 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 | | | Patient history has been obtained from the EHR Transthoracic | | | Echocardiographic Report | | | + | | | ---------+Final Impressions: | | | | | | | | | | | | | | | 1. The LV ejection fraction is severely decreased. | | | | | | | | | 2. Visually estimated left ventricular ejection fraction is 20 - | | | 25%. 3. Left ventricular systolic thickening is | | | segmentally abnormal (see comments below). | | | | | | 4. Mildly reduced RV systolic function. Normal RV size. | | | 5. No significant valvular abnormalities | | | seen. 6. Compared to | | | the most recent exam dated, 03/15/2017, there are no | | | significant changes. | | | | | | | | | | | | + | | | + Description of Findings: Cardiac Rhythm: | | | Tachycardia.Left Ventricle: Visually estimated left ventricular | | | ejection fraction is 20 - 25%. The LV ejection fraction is severely | | | decreased.The ejection fraction is 24.2 % as measured by Landry's | | | biplane method. There is a false tendon in the LV apex.Left | | | Ventricular Wall Motion: The LAD distribution and apical lateral | | | segment are akinetic. The RCA distribution and mid anterolateral | | | segment are hypokinetic. All remaining scored segments are normal. | | | Left ventricular systolic thickening is segmentally abnormal.Atria: | | | Left atrial size is normal. Normal right atrium.Right Ventricle: The | | | right ventricular size is normal. Global RV systolic function is | | | mildly reduced. TAPSE measures 1.4cm. The RV TDI s' velocity is | | | 12cm/sec.Aortic Valve: The aortic valve is normal in structure and | | | function. No indication of aortic valve regurgitation.Mitral Valve: | | | The mitral valve is structurally normal. No evidence of mitral valve | | | regurgitation.Tricuspid Valve: The tricuspid valve is structurally | | | normal. Trace tricuspid regurgitation.Pulmonic Valve: The pulmonic | | | valve is not well visualized.Aorta: Visualized portions of the | | | ascending aorta and aortic root appear normal.Venous: Inferior vena | | | cava is normal with normal inspiratory collapse.Pericardium: There is | | | significant precordial fat pad present. A trivial pericardial effusion | | | is seen.2D Measurements Doppler Measurements | | | 2D NL Values Aortic Mitral | | | LVOT Rohan 0.92 m/s E/A RatioBiplane | | | EF 24.2 % LVOT Diam 1.86 cm TDI (E/e') | | | Tricuspid Pulmonic | | | RA Press 5 mmHg RVOT VTI | | | Aorta:Evaluation of chamber size | | | and geometry is accomplished through the incorporation of linear, | | | volumetric, and indexed values Wall Scoring: Report electronically | | | signed by: [id number] Jen Ovalle MD, PhD (03/17/2017, 1:53:40 PM) | | | Final | | | 2D NL Values Aortic Mitral | | | LVOT Rohan 0.92 m/s E/A Ratio | | |Biplane EF 24.2 % LVOT Diam 1.86 cm TDI (E/e') | | | Tricuspid Pulmonic | | | RA Press 5 mmHg RVOT VTI | | | | | | Aorta: | | |Evaluation of chamber size and geometry is accomplished through the incorporation of | | |linear, volumetric, and indexed values | | | | | |Wall Scoring: | | | | | | | | |Report electronically signed by: [id number] Jen Ovalle MD, PhD (03/17/2017, | | |1:53:40 PM) | | | | | | | | | | | | Final | | + +---- + + + | Procedure Note | + + | Interface, Cardiology Results - 03/17/2017 1:[address] [facility] | | [facility] Echocardiography Laboratory [address] [place] [address] | | [place], [place] [address] Pt Name: RON Chaudhary | | MIKE Study Date/Time 03/17/2017 / 10:30:26 AMMRN: [id number] Most | | recent prior: 03/15/2017Acc #: [id number] No. previous echos: 1DOB: | | 1955 61 years Heart Rate: 139 bpmHeight: 69.0 in Blood | | Pressure: 133/83 mm/HgWeight: 258.0 lb Gender: MBSA: | | 2.30 m2 Order ID: [id number] Postal Service Clerk: Mauri Domingo | | RDCSReferring Provider: Mellisa Rubalcava Location: 12KModalities Performed: | | Limited 2D, Color Doppler and Spectral Doppler Limited.Study Quality: Fair.Exam | | Indication: Heart failure; ECMO; s/p STEMIHistory: 61 year old male with a past medical | | history significant for hypertension, hyperlipidemia, ongoing tobacco use and | | pre-diabetes who is transferred to [facility] with cardiogenic shock in the setting of [...] | | Scoring: Report electronically signed by: [id number] Jen Ovalle MD, PhD (03/17/2017, | | [...] | | | |Report electronically signed by: [id number] Jen Ovalle MD, PhD (03/17/2017, | |1:53:40 PM) | | | | | | | | Final | + + + + + + + | Performing | Address | City/State/Zipcode | Phone Number | | Organization | | | | + + + + + | [facility] DEPT OF | [address] | [place], [place] | | | CARDIOLOGY | [address] | [address] | | + + + + + [...] M[facility] | [address] | [place], [place] | | | JULIANN SILVA OF CARE | [facility] | [address] | | | TESTS | | | [...] (H) | 60 - 99 mg/dL | [facility] - | | | GLUCOSE, | | [...] + + + | [facility] | [address] | [place], [place] | | | JULIANN SILVA OF [facility] | [address] | [address] | | | TESTS | | | [...] | Specimen | + + | Blood - Blood | | (substance) | + + + + + | [...] + + | [facility] | [address] [facility] | [place] [address] | | | ИРИНА ANTOINE | TABITHA [...] | Specimen | + + | Blood - Blood | | (substance) | + + + + + | [...] - Therapeutic Ranges: Heparin, Unfractionated: 0.35 - 0.70 | | | U/mL Enoxaparin, LMWH: 0.70 - 1.20 U/mL Dalteparin, | | | LMWH: 0.70 - 1.20 U/mL Tinzaparin, LMWH: | | | Therapeutic range not established. | | | Preliminary studies suggest range | | | similar to dalteparin. Clinical | | | correlation required. Heparin levels may be unreliable | | | for: Total bilirubin >28.8 | | | mg/dL Triglycerides >690 | | | mg/dL or Moderate to Gross | | | Hemolysis | | + + + + + + + + | Performing | Address | City/State/Zipcode | Phone Number | | Organization | | | | + + + + + | [facility] | [address] | [place] [address] | | | SERVICES, ИРИНА | TABITHA [...] | Specimen | + + | Blood - Blood | | (substance) | + + + + + + + | Performing | Address | City/State/Zipcode | Phone Number | | Organization | | | | + + + + + | [facility] | [address] | [place] [address] | | | SERVICES, CORE | TABITHA [...] (H) | 60 - 99 mg/dL | [facility] - | | | GLUCOSE, | | [...] [facility] | [address] | [place], [place] | | | JULIANN SILVA OF CARE | [address] | [address] | | | TESTS | | | [...] MARRANDIAM | [address] | [place] | | | JULIANN SILVA OF CARE | [address] | [address] | | | TESTS | | | [...] MARIA | [address] | [place], [place] | | | JULIANN SILVA OF [facility] | [address] | [address] | | | TESTS | | | [...] | Specimen | + + | Blood - Blood | | (substance) | + + + + + + + | Performing | Address | City/State/Zipcode | Phone Number | | Organization | | | | + + + + + | [facility] | [address] | [place] [address] | | | SERVICES, CORE | TABITHA [...] | Specimen | + + | Blood - Blood | | (substance) | + + + + + + + | Performing | Address | City/State/Zipcode | Phone Number | | Organization | | | | + + + + + | [facility] | [address] | [place] [address] | | | SERVICES, CORE | [address] | | | + + + + + X-RAY PORTABLE CHEST 1 VIEW (03/17/2017 5:37 AM PDT) + + | Specimen | + + | | + + + + + | Narrative | Performed At | + + + | EXAM: NV CHEST 1 VIEW 03/17/17 04:53:29 HISTORY: On [...] Note | + + | Service Lluvia, Radiant Res In Interface - 03/17/2017 9:44 AM PDT EXAM: NV CHEST 1 | | VIEW 03/17/17 04:53:29 [...] [facility] | [address] | [place], [place] | | | [facility] | [address] | [id number] | | | TESTS | | | [...] | Specimen | + + | Blood - Blood | | (substance) | + + + + + | Narrative | Performed At | + + + | Immature Granulocytes (IG) include metamyelocytes, myelocytes | [facility] | | and promyelocytes. Bands are not included in the IG count. Bands are | LABORATORY | | included in the neutrophil count. | ИРИНА ANTOINE | + + + + + + + + | Performing | Address | City/State/Zipcode | Phone Number | | Organization | | | | + + + + + | [facility] | [address] | [place] [address] | | | SERVICESИРИНА | [address] | | | + [...] | | | LABORATORY | | | SALVADOREAN | | | SERVICES, | | | [...] | Specimen | + + | Blood - Blood | | (substance) | + + + + + | [...] | Information: <60 mL/min/1.73 sq m Chronic Kidney | | | Disease <15 mL/min/1.73 sq m Kidney Failure | [...] | + + + + + | [facility] | [address] | [place] [address] | | | SERVICES, CORE | PARK [...] | Specimen | + + | Blood - Blood | | (substance) | + + + + + + + | Performing | Address | City/State/Zipcode | Phone Number | | Organization | | | | + + + + + | [facility] | [address] | [place] [address] | | | SERVICES, CORE | PARK [...] MARIA | [address] | [place], [place] | | | RICARDO BALLICO OF [facility] | [facility] | [address] | | | TESTS | | | [...] | Specimen | + + | Blood - Blood | | (substance) | + + + + + | [...] [facility] | [address] | [place] [address] | | | SERVICES, CORE | PARK [...] | Specimen | + + | Blood - Blood | | (substance) | + + + + + + + | Performing | Address | City/State/Zipcode | Phone Number | | Organization | | | | + + + + + | [facility] | [address] | [place] [address] | | | SERVICES, CORE | TABITHA [...] | Specimen | + + | Blood - Blood | | (substance) | + + + + + | [...] | + + + + + | [facility] | [address] | [place] [address] | | | SERVICES, CORE | TABITHA [...] | Specimen | + + | Blood - Blood | | (substance) | + + + + + | [...] | + + + + + | [facility] | [address] | [place] [address] | | | SERVICES, CORE | PARK [...] | Specimen | + + | Blood - Blood | | (substance) | + + + + + + + | Performing | Address | City/State/Zipcode | Phone Number | | Organization | | | | + + + + + | [facility] | [address] | [place] [address] | | | SERVICES, CORE | TABITHA [...] | Specimen | + + | Blood - Blood | | (substance) | + + + + + | [...] Unfractionated: 0.35 - 0.70 U/mL Enoxaparin, LMWH: 0.70 | | | - 1.20 U/mL Dalteparin, LMWH: 0.70 - 1.20 U/mL | | | Tinzaparin, LMWH: Therapeutic range not established. | | | Preliminary studies suggest range | | | similar to dalteparin. Clinical | | | correlation required. | | | Heparin levels may be unreliable for: | | | Total bilirubin >28.8 mg/dL | | | Triglycerides >690 mg/dL | | | or Moderate to Gross Hemolysis | | + + + + + + + + | Performing | Address | City/State/Zipcode | Phone Number | | Organization | | | | + + + + + | [facility] | [address] | [place] [address] | | | SERVICES, CORE | PARK [...] | Specimen | + + | Blood - Blood | | (substance) | + + + + + + + | Performing | Address | City/State/Zipcode | Phone Number | | Organization | | | | + + + + + | [facility] | [address] | [place] [address] | | | SERVICES, CORE | TABITHA [...] | Specimen | + + | Blood - Blood | | (substance) | + + + + + | [...] [facility] | [address] | [place] [address] | | | ИРИНА ANTOINE | TABITHA [...] | Specimen | + + | Blood - Blood | | (substance) | + + + + + | [...] Venous Thromboembolism (2.0 - 3.0) INR INR for | | | most patients with mech. valves (2.5 - 3.5) INR APTT | | | Therapeutic Range: (75 - 120) sec | | | Heparin levels of 0.35 - 0.7 U/mL | | + + + + + + + + | Performing | Address | City/State/Zipcode | Phone Number | | Organization | | | | + + + + + | [facility] | [address] | [place] [address] | | | SERVICES, CORE | TABITHA [...] | Specimen | + + | Blood - Blood | | (substance) | + + + + + + + | Performing | Address | City/State/Zipcode | Phone Number | | Organization | | | | + + + + + | [facility] | [address] | [place] [address] | | | SERVICES, CORE | PARK [...] + + + + + + | QTC-KIRBY | 412 | ms | [facility] [...] | | | IMPRESSION | by: CARLOS ABLERTO ARMANDO | | OF | | | [...] + + | [facility] | [address] | [place], [place] | | | CARDIOLOGY | [address] | [address] | | + + + + + SU-TG-[id number] ISIDRO RT (03/17/2017 12:44 AM PDT) + + [...] | Specimen | + + | Blood - Blood | | (substance) | + + + + + + + | Performing | Address | City/State/Zipcode | Phone Number | | Organization | | | | + + + + + | [facility] | [address] | [place], [place] | | | JULIANN SILVA OF CARE | [address] | [address] | | | TESTS | | | [...] [facility] | [address] | [place], [place] | | | JULIANN SILVA OF CARE | [address] | [address] | | | TESTS | | | | + + + + + THROMBELASTOGRAPH, POC (03/17/2017 12:19 AM PDT) + +-------+ + + + | Component | Value | Ref Range | Performed | Pathologist | | | | | At | Signature | + +-------+ + + + | R - | 7.2 | 5 - 10 Minutes | [facility] [...] [facility] | | | | | | UJLIANN SILVA | | | | | | [...] | Specimen | + + | Blood - Blood | | (substance) | + + + + + | Impressions | Performed At | + + + | A standard citrated kaolin TEG was performed R time is normal. | [facility] - | | ALPHA angle is normal. MA is normal. Normal LY30 | [facility] | | corresponds to normal fibrinolysis Overall, [...] [facility] | [address] | [place], [place] | | | RICARDO POINT OF CARE | [address] | [address] | | | TESTS | | | [...] | Specimen | + + | Blood - Blood | | (substance) | + + + + + + + | Performing | Address | City/State/Zipcode | Phone Number | | Organization | | | | + + + + + | [facility] | [address] | [place] [address] | | | SERVICES, CORE | TABITHA [...] (H) | 60 - 99 mg/dL | [facility] - | | | GLUCOSE, | | [...] [facility] | [address] | [place], [place] | | | JULIANN SILVA OF CARE | [address] | [address] | | | TESTS | | | [...] [facility] | [address] | [place], [place] | | | R[facility]ARDO POINT OF CARE | [address] | [address] | | | TESTS | | | [...] | Specimen | + + | Blood - Blood | | (substance) | + + + + + | [...] Enoxaparin, LMWH: 0.70 - 1.20 U/mL Dalteparin, LMWH: | | | 0.70 - 1.20 U/mL Tinzaparin, LMWH: Therapeutic | | | range not established. | | | Preliminary studies suggest range | | | similar to dalteparin. Clinical | | | correlation required. Heparin levels may be unreliable for: | | | Total bilirubin >28.8 mg/dL | | | Triglycerides >690 mg/dL | | | or Moderate to Gross Hemolysis | | + + + + + + + + | Performing | Address | City/State/Zipcode | Phone Number | | Organization | | | | + + + + + | [facility] | [address] | [place] [address] | | | SERVICES, CORE | TABITHA [...] (H) | 60 - 99 mg/dL | [facility] - | | | GLUCOSE, | | [...] [facility] | [address] | [place], [place] | | | R[facility]O POINT OF CARE | [address] | [address] | | | TESTS | | | [...] | Specimen | + + | Blood - Blood | | (substance) | + + + + + + + | Performing | Address | City/State/Zipcode | Phone Number | | Organization | | | | + + + + + | [facility] | [address] | [place] [address] | | | ARASH, ИРИНА | PARK [...] [facility] | [address] | [place], [place] | | | JULIANN SILVA OF CARE | [address] | [address] | | | TESTS | | | [...] (H) | 60 - 99 mg/dL | [facility] - | | | GLUCOSE, | | [...] [facility] | [address] | [place], [place] | | | JULIANN SILVA OF [facility] | [address] | [address] | | | TESTS | | | | + + + + + GLYNN JOHNSTON (03/16/2017 3:32 PM PDT) + + + | Narrative | Performed At | + + + | Teddy Kee , 03/16/2017 2:43 PM ARTERIAL LINE | | [...] consent obtained Consent given by: Next of kin | | | Patient identity confirmed per policy: Yes Team Pause: Immediatly | | | prior to the procedure a pause per protocol was called. A pause | | | verifies correct patient, procedure, equipment, child support case officer and | | | site/side marked as required. CLABSI Prevention Bundle: Insertion | | | site: Left Radial Skin preparation: Chloraprep Protective barrier: | | | Cap, Mask, Hand scrub, Gloves and Partially draped. Sterile | | | Ultrasound Used, Line secured: Suture Anesthesia | [...] Attempts 2 attempt(s) were made. Complications Type: None | | | | | + + + BLOOD GASES, [...] | Specimen | + + | Blood - Blood | | (substance) | + + + + + + + | Performing | Address | City/State/Zipcode | Phone Number | | Organization | | | | + + + + + | [facility] | [address] | [place] [address] | | | SERVICES, CORE | PARK [...] | Specimen | + + | Blood - Blood | | (substance) | + + + + + | [...] [facility] | [address] | [place] [address] | | | SERVICES, CORE | PARK [...] | Specimen | + + | Blood - Blood | | (substance) | + + + + + | [...] | + + + + + | [facility] | [address] | [place] [address] | | | SERVICES, CORE | PARK [...] | | | ИРИНА | | + + + + + [...] | Specimen | + + | Blood - Blood | | (substance) | + + + + + + + | Performing | Address | City/State/Zipcode | Phone Number | | Organization | | | | + + + + + | [facility] | [address] | [place] [address] | | | SERVICES, CORE | PARK [...] | | | LABORATORY | | | SALVADOREAN | | | SERVICES, | | | [...] | Specimen | + + | Blood - Blood | | (substance) | + + + + + | Narrative | Performed At | + + + | GFR is estimated using the MDRD equation recommended by the | [facility] | | National Kidney Disease Education Program. Estimated GFR | LABORATORY | | Interpretive Information: <60 mL/min/1.73 sq m | SERVICES, CORE | | Chronic Kidney Disease <15 mL/min/1.73 sq m | [...] | + + + + + | [facility] | [address] | [place] [address] | | | SERVICES, ИРИНА | TABITHA [...] | Specimen | + + | Blood - Blood | | (substance) | + + + + + | Narrative | Performed At | + + + | Must order with concurrent CBC INR Therapeutic ranges for full | [facility] | | anticoagulation: INR for Venous Thromboembolism | LABORATORY | | (2.0 - 3.0) INR INR for most patients with mech. valves (2.5 | SERVICES, CORE | | - 3.5) INR APTT Therapeutic Range: | | | (75 - 120) sec Heparin levels of 0.35 - 0.7 U/mL | | + + + + + + + + | Performing | Address | City/State/Zipcode | Phone Number | | Organization | | | | + + + + + | [facility] | [address] | [place] [address] | | | SERVICES, CORE | PARK [...] | Specimen | + + | Blood - Blood | | (substance) | + + + + + + + | Performing | Address | City/State/Zipcode | Phone Number | | Organization | | | | + + + + + | [facility] | [address] | [place] [address] | | | SERVICES, CORE | TABITHA [...] | | POC | | | JULIANN SILAV | | [...] [facility] | [address] | [place], [place] | | | R[facility]O POINT OF CARE | [address] | [address] | | | TESTS | | | [...] [facility] | [address] | [place], [place] | | | [facility] POINT [facility] CARE | [address] | [address] | | | TESTS | | | [...] [facility] | [address] | [place], [place] | | | JULIANN SILVA OF [facility] | [address] | [address] | | | TESTS | | | [...] [facility] | [address] | [place], [place] | | | R[facility] POINT OF CARE | [address] | [address] | | | TESTS | | | [...] | Specimen | + + | Blood - Blood | | (substance) | + + + + + | Narrative | Performed At | + + + | APTT Therapeutic Range: (75 - | [facility] | | 120) sec Heparin levels of 0.35 - 0.7 U/mL | LABORATORY | | | SERVICESИРИНА | + + + + + + + + | Performing | Address | City/State/Zipcode | Phone Number | | Organization | | | | + + + + + | [facility] | [address] | [place] [address] | | | ИРИНА ANTOINE | PARK [...] | | | LABORATORY | | | SALVADOREAN | | | SERVICES, | | | [...] | Specimen | + + | Blood - Blood | | (substance) | + + + + + | [...] | Information: <60 mL/min/1.73 sq m Chronic Kidney | | | Disease <15 mL/min/1.73 sq m Kidney Failure | [...] | + + + + + | [facility] | [address] | [place] [address] | | | SERVICES, ИРИНА | TABITHA [...] - [facility] | [address] | [place], [place] | | | R[facility]ARDO POINT OF [facility] | [facility] | [address] | | | TESTS | | | [...] | Specimen | + + | Blood - Blood | | (substance) | + + + + + | Narrative | Performed At | + + + | APTT Therapeutic Range: (75 - | [facility] | | 120) sec Heparin levels of 0.35 - 0.7 U/mL | LABORATORY | | | SERVICES, CORE | + + + + + + + + | Performing | Address | City/State/Zipcode | Phone Number | | Organization | | | | + + + + + | [facility] | [address] | [place] [address] | | | ARASH, ИРИНА | TABITHA [...] MARIA | [address] | [place], [place] | | | JULIANN SILVA OF [facility] | [address] | [address] | | | TESTS | | | | + + + + + OPERATION RECORD (03/16/2017 9:30 AM PDT) + + | Procedure Note | + + | Dale Mak MD - 03/15/2017 3:42 PM PDT Date of Service: 03/15/2017 Attending | | Surgeon:Ron Powell MD. Graphic User Interface Designer(s):Dale Mak MD. | | Preoperative Diagnoses: 1.Cardiogenic [...] The | | patient was transferred to [facility] for further management. At [facility], the patient continued | | to be [...] cannulation with micropuncture | | wire. A 7-Marshallese sheath was placed in an antegrade direction down the SFA for distal | | perfusion. A 19-Marshallese arterial cannula was placed in a retrograde [...] 03/15/2017 15:23:00DT: 03/15/2017 15:42:27Job #: | | [id number] | | | |A 19-Marshallese arterial cannula was placed in a retrograde [...] |HS/MODL | | | | | | /[id number] | + + CBC (HEMOGRAM) ONLY (03/16/2017 [...] | Specimen | + + | Blood - Blood | | (substance) | + + + + + | [...] | + + + + + | [facility] | [address] | [place] [address] | | | SERVICES, CORE | PARK [...] | Specimen | + + | Blood - Blood | | (substance) | + + + + + | [...] Enoxaparin, LMWH: 0.70 - 1.20 U/mL Dalteparin, LMWH: | | | 0.70 - 1.20 U/mL Tinzaparin, LMWH: Therapeutic | | | range not established. | | | Preliminary studies suggest range | | | similar to dalteparin. Clinical | | | correlation required. Heparin levels may be unreliable for: | | | Total bilirubin >28.8 mg/dL | | | Triglycerides >690 mg/dL | | | or Moderate to Gross Hemolysis | | + + + + + + + + | Performing | Address | City/State/Zipcode | Phone Number | | Organization | | | | + + + + + | [facility] | [address] | [place] [address] | | | ИРИНА ANTOINE | TABITHA [...] | Specimen | + + | Blood - Blood | | (substance) | + + + + + + + | Performing | Address | City/State/Zipcode | Phone Number | | Organization | | | | + + + + + | [facility] | [address] | [place] [address] | | | ИРИНА ANTOINE | TABITHA [...] [facility] | [address] | [place], [place] | | | JULIANN SILVA OF [facility] | [facility] | [address] | | | TESTS | | | [...] [facility] | [address] | [place], [place] | | | [facility] POINT [facility] CARE | [address] | [address] | | | TESTS | | | [...] [facility] | [address] | [place], [place] | | | R[facility] POINT OF CARE | [address] | [address] | | | TESTS | | | | + + + + + X-RAY PORTABLE CHEST 1 VIEW (03/16/2017 5:44 AM PDT) + + | Specimen | + + | | + + + + + | Narrative | Performed At | + + + | EXAM: NV CHEST 1 VIEW HISTORY: Evaluate cannula placement. heart | [facility] | | failure. COMPARISON: Yesterday FINDINGS: Endotracheal | RADIOLOGY VOICE | | tube, [place]-Олег catheter and enteric tube remain in place. [...] Note | + + | Service Account, Arely Elementum In Interface - 03/16/2017 8:27 AM PDT EXAM: NV CHEST 1 | | VIEW HISTORY: Evaluate cannula placement. heart failure.COMPARISON: YesterdayFINDINGS: | | Endotracheal tube, [place]-Олег catheter and enteric tube remain in place. [...] [facility] | [address] | [place], [place] | | | [facility] POINT [facility] CARE | [address] | [address] | | | TESTS | | | [...] [facility] | [address] | [place], [place] | | | [facility]INT [facility] CARE | [address] | [address] | | | TESTS | | | | + + + + + [id number]-PL-BHY-HB,POC RT (03/16/2017 3:42 AM PDT) + + [...] | Specimen | + + | Blood - Blood | | (substance) | + + + + + + + | Performing | Address | City/State/Zipcode | Phone Number | | Organization | | | | + + + + + | [facility] | [address] | [place], [place] | | | JULIANN SILVA OF [facility] | [address] | [address] | | | TESTS | | | [...] [facility] | [address] | [place], [place] | | | R[facility]ARDO [facility] | [facility] | [address] | | | TESTS | | | [...] | Specimen | + + | Blood - Blood | | (substance) | + + + + + + + | Performing | Address | City/State/Zipcode | Phone Number | | Organization | | | | + + + + + | [facility] | [address] | [place] [address] | | | SERVICES, CORE | PARK [...] | | | CITRATED | | | [facility] | | | [...] | | | CITRATED | | | [facility] | | | [...] | Specimen | + + | Blood - Blood | | (substance) | + + + + + | Impressions | Performed At | + + + | A standard citrated kaolin TEG was performed R time is normal. | [facility] - | | Elevated ALPHA angle corresponds to increased rate of fibrin | [facility], | | crosslinking suggesting HYPERcoagulability MA is normal. | POINT OF CARE | | Normal LY30 corresponds to normal fibrinolysis Overall, TEG | TESTS | | suggests hypercoagulability. See Media Tab in Chart Review for TEG | | | tracing Electronically signed on 07/27/2017 at 3:40 PM Rocio | | | Haseeb Galloway MD | | + + + + + + + + | Performing | Address | City/State/Zipcode | Phone Number | | Organization | | | | + + + + + | [facility] | [address] | [place], [place] | | | [facility]INT [facility] | [address] | [address] | | | TESTS | | | [...] | Specimen | + + | Blood - Blood | | (substance) | + + + + + | Narrative | Performed At | + + + | Q 6 hrs x 24 hrs Immature Granulocytes (IG) include | [facility] | | metamyelocytes, myelocytes and promyelocytes. Bands are not included | LABORATORY | | in the IG count. Bands are included in the neutrophil count. | SERVICES, CORE | + + + + + + + + | Performing | Address | City/State/Zipcode | Phone Number | | Organization | | | | + + + + + | [facility] | [address] | [place] [address] | | | SERVICES, CORE | TABITHA [...] | Specimen | + + | Blood - Blood | | (substance) | + + + + + + + | Performing | Address | City/State/Zipcode | Phone Number | | Organization | | | | + + + + + | [facility] | [address] | [place] [address] | | | SERVICES, CORE | PARK [...] | | | LABORATORY | | | SALVADOREAN | | | SERVICES, | | | [...] | Specimen | + + | Blood - Blood | | (substance) | + + + + + | Narrative | Performed At | + + + | GFR is estimated using the MDRD equation recommended by the | [facility] | | National Kidney Disease Education Program. Estimated GFR | LABORATORY | | Interpretive Information: <60 mL/min/1.73 sq m | SERVICES, CORE | | Chronic Kidney Disease <15 mL/min/1.73 sq m | [...] | + + + + + | [facility] [employer] | [address] | [place] [address] | | | SERVICES, CORE | TABITHA [...] | Specimen | + + | Blood - Blood | | (substance) | + + + + + + + | Performing | Address | City/State/Zipcode | Phone Number | | Organization | | | | + + + + + | [facility] | [address] | [place] [address] | | | SERVICES, CORE | PARK [...] | Specimen | + + | Blood - Blood | | (substance) | + + + + + | [...] Unfractionated: 0.35 - 0.70 U/mL Enoxaparin, LMWH: 0.70 | | | - 1.20 U/mL Dalteparin, LMWH: 0.70 - 1.20 U/mL | | | Tinzaparin, LMWH: Therapeutic range not established. | | | Preliminary studies suggest range | | | similar to dalteparin. Clinical | | | correlation required. | | | Heparin levels may be unreliable for: | | | Total bilirubin >28.8 mg/dL | | | Triglycerides >690 mg/dL | | | or Moderate to Gross Hemolysis | | + + + + + + + + | Performing | Address | City/State/Zipcode | Phone Number | | Organization | | | | + + + + + | [facility] | [address] | [place] [address] | | | SERVICES, CORE | PARK [...] | Specimen | + + | Blood - Blood | | (substance) | + + + + + | Narrative | Performed At | + + + | Must order with concurrent CBC Venous Disease Heparin Protocol | [facility] | | (for [facility] ECMO) Heparin level 6 hrs after every heparin rate change. | LABORATORY | | INR Therapeutic ranges for full anticoagulation: INR for | [facility], CORE | | Venous Thromboembolism (2.0 - 3.0) INR INR for | | | most patients with mech. valves (2.5 - 3.5) INR APTT | | | Therapeutic Range: (75 - 120) sec | | | Heparin levels of 0.35 - 0.7 U/mL | | + + + + + + + + | Performing | Address | City/State/Zipcode | Phone Number | | Organization | | | | + + + + + | [facility] | [address] | [place] [address] | | | ИРИНА ANTOINE | TABITHA [...] | Specimen | + + | Blood - Blood | | (substance) | + + + + + + + | Performing | Address | City/State/Zipcode | Phone Number | | Organization | | | | + + + + + | [facility] | [address] | [place] [address] | | | SERVICES, CORE | TABITHA [...] (H) | 60 - 99 mg/dL | [facility] - | | | GLUCOSE, | | [...] + + + | [facility] | [address] | [place], [place] | | | [facility] POINT OF CARE | [address] | [address] | | | TESTS | | | [...] | Specimen | + + | Blood - Blood | | (substance) | + + + + + + + | Performing | Address | City/State/Zipcode | Phone Number | | Organization | | | | + + + + + | [facility] | [address] | [place] [address] | | | SERVICES, CORE | TABITHA [...] | [facility] | [address] | [place], [place] | | | [facility]ARE | [address] | [address] | | | TESTS | | | [...] | Specimen | + + | Blood - Blood | | (substance) | + + + + + + + | Performing | Address | City/State/Zipcode | Phone Number | | Organization | | | | + + + + + | [facility] | [address] | [place] [address] | | | SERVICES, CORE | TABITHA [...] | | | LABORATORY | | | SALVADOREAN | | | SERVICES, | | | [...] | Specimen | + + | Blood - Blood | | (substance) | + + + + + | Narrative | Performed At | + + + | GFR is estimated using the MDRD equation recommended by the | [facility] | | National Kidney Disease Education Program. Estimated GFR | LABORATORY | | Interpretive Information: <60 mL/min/1.73 sq m | [facility], ИРИНА | | Chronic Kidney Disease <15 mL/min/1.73 sq m | [...] | + + + + + | [facility] | [address] | [place] [address] | | | ИРИНА ANTOINE | [address] | | | + + + + + [id number],POC RT (03/16/2017 12:22 AM PDT) + + [...] | | | | | mmol/L | [facility] | | | | | [...] | Specimen | + + | Blood - Blood | | (substance) | + + + + + + + | Performing | Address | City/State/Zipcode | Phone Number | | Organization | | | | + + + + + | [facility] | [address] | [place], [place] | | | [facility] | [address] | [address] | | | TESTS | | | [...] [facility] | [address] | [place], [place] | | | [facility] | [address] | [address] | | | TESTS | | | [...] + | [facility] | [address] | [place], [place] | | | [facility] | [address] | [address] | | | TESTS | | | [...] [facility] | [address] | [place], [place] | | | [facility] | [address] | [address] | | | TESTS | | | | + + + + + X-RAY PORTABLE CHEST 1 VIEW (03/15/2017 9:44 PM PDT) + + | Specimen | + + | | + + + + + | Narrative | Performed At | + + + | EXAM: NV CHEST 1 VIEW HISTORY: Evaluate new endotracheal [...] Note | + + | Service Account, [employer] In Interface - 03/16/2017 8:27 AM PDT EXAM: NV CHEST 1 | | VIEW HISTORY: Evaluate [...] | | | + +---------+ + + BG-KARY LIGHT RT (03/15/2017 9:26 PM PDT) + + [...] | Specimen | + + | Blood - Blood | | (substance) | + + + + + + + | Performing | Address | City/State/Zipcode | Phone Number | | Organization | | | | + + + + + | [facility] | [address] | [place], [place] | | | [facility] | [facility] | [address] | | | TESTS | | | [...] [facility] | [address] | [place], [place] | | | [facility] | [address] | [address] | | | TESTS | | | [...] | Specimen | + + | Blood - Blood | | (substance) | + + + + + | [...] [facility] | [address] | [place] [address] | | | ИРИНА ANTOINE | TABITHA [...] | Specimen | + + | Blood - Blood | | (substance) | + + + + + | [...] Enoxaparin, LMWH: 0.70 - 1.20 U/mL Dalteparin, LMWH: | | | 0.70 - 1.20 U/mL Tinzaparin, LMWH: Therapeutic | | | range not established. | | | Preliminary studies suggest range | | | similar to dalteparin. Clinical | | | correlation required. Heparin levels may be unreliable for: | | | Total bilirubin >28.8 mg/dL | | | Triglycerides >690 mg/dL | | | or Moderate to Gross Hemolysis | | + + + + + + + + | Performing | Address | City/State/Zipcode | Phone Number | | Organization | | | | + + + + + | [facility] | [address] | [place] [address] | | | ARASH, ИРИНА | TABITHA [...] | Specimen | + + | Blood - Blood | | (substance) | + + + + + | [...] | + + + + + | [facility] | [address] | [place] [address] | | | SERVICES, ИРИНА | [address] | | | + + + + + ENDOTRACHEAL INTUBATION (03/15/2017 9:03 PM PDT) + + + | Narrative | Performed At | + + + | Everardo Cintron MD 03/15/2017 9:03 PM ENDOTRACHEAL INTUBATION | | | Date/Time: 03/15/2017 8:58 PM Performed by: EVERARDO [...] No Patient sedated: Yes Sedation: Propofol and see | | | MAR for details Vital signs: Vital signs monitored during sedation | | | Post-procedure: Patient tolerance: Patient tolerated the | | | procedure well with no immediate complications Ambubag and | | | suction available at bedside. CMAC Mac 4 used to visualize airway, | | | Grade III view with old blood and new blood present in | | | laryngopharynx plus edema. A Image Searcher Airway Exchange catheter was | | | inserted and then the endotracheal tube was deflated and removed | | | over the exchange catheter. A new 8.0 ETT was inserted over the | | | catheter and the exchange catheter was then removed. The cuff was | | | inflated and ETCO2 was confirmed prior to placing the patient on the | | | ventilator. Bilateral breath sounds were confirmed. One attempt | | | was utilized for intubation. | | + [...] [facility] | [address] | [place], [place] | | | [facility] | [facility] | [address] | | | TESTS | | | | + + + + + IS-TG-CYW-HB,POC RT (03/15/2017 7:39 PM PDT) + + [...] | | | CA,WHOLE | | | HILL, POINT | | | BLD,POC | | [...] | Specimen | + + | Blood - Blood | | (substance) | + + + + + + + | Performing | Address | City/State/Zipcode | Phone Number | | Organization | | | | + + + + + | [facility] | [address] | [place], [place] | | | [facility] | [address] | [address] | | | TESTS | | | [...] [facility] | [address] | [place], [place] | | | [facility] | [address] | [address] | | | TESTS | | | [...] (H) | 60 - 99 mg/dL | [facility] - | | | GLUCOSE, | | [...] [facility] | [address] | [place], [place] | | | [facility] | [address] | [address] | | | TESTS | | | | + + + + + X-RAY PORTABLE CHEST 1 VIEW (03/15/2017 5:51 PM PDT) + + | Specimen | + + | | + + + + + | Narrative | Performed At | + + + | STUDY: NV CHEST 1 VIEW 03/15/17 17:40:08 COMPARISON: 03/15/17 [...] Note | + + | Service Account, WatchFrog Res In Interface - 03/15/2017 6:20 PM PDT STUDY: NV CHEST 1 | | VIEW 03/15/17 17:40:08COMPARISON: [...] given by: Power of | | | consumer attorney Patient identity confirmed per policy: Yes Team Pause: | | | Immediatly prior to the procedure a pause per protocol was called. A | | | pause verifies correct patient, procedure, equipment, child support case officer | | | and site/side marked as [...] (sterile gel, and sterile probe cover) used Dressing: | | | Covered with sterile gauze applied prior to | | | removal of drape followed by sterile dressing applied | | | Guidewire confirmed to be removed.without difficulties and intact | | | Procedure Details Patient was placed in appropriate position The | | | vascular anatomy was identified by. The modified Seldinger technique | | | (a hjdnaqeg-ccxm-plq-pjukkm-vqyz-zlgc-cfrwkzi-shl-pirobyny) was used | | | for vessel cannulation. Fluid manometry was used to confirm venous | | | cannulation and The wire was visualized with ultrasound in the | | | correct target vessel. Ultrasound images printed and will be scanned | | | into EMR A non-tunneled Double-Lumen Introducer Sheath ([employer] [place]) | | | (size of 8.5 Fr) [...] Direct ultrasound guidance used. The cordis was then | | | inserted easily and atraumatically via 1 attempt. Again ensuring | | | strict sterile technique, the PAC was then floated without | | | difficulty on first attempt out to wedge position. The balloon was | | | then deflated, the catheter was withdrawn 2 cm, and then locked in | | | position. There were no apparent complications. A CXR has been | | | ordered. Sedation/Anesthesia/Analgesia Analgesia: Yes | | | Anesthesia: sedation with ml Indications: Invasive hemodynamic | | | monitoring and Administration of vasoactive medication Procedure | | | location: 12 Providers: Attending name: Attending physically | | [...] + + + CENTRAL LINE PLACEMENT (03/15/2017 5:25 PM PDT) + + + | Narrative | Performed At | + + + | Jose Ramon Alvarado MD 03/15/2017 5:34 PM Procedure Note: | | | Central Line Placement Name: Ron Mckeon | | | 03/15/2017 Time: 5:26 PM Diagnosis: shock At 15:30 | | | (time), prior to the beginning of the procedure, the team paused to | | | verify the patient | | | | [...] | were addressed. Indication: infusion of vasoactive medications | | | and PA cath Consent: A discussion of the risks, benefits, and | | | alternatives was not possible due to urgency of the procedure and | | | patient's condition prior to the procedure. Procedure Details: | | | The resident physician did thoroughly complete the handwashing | | | procedure. The procedure was performed using full barrier | | | precautions. Sonography was utilized for pre-procedure | | | identification of the vascular anatomy, and was used during the | | | procedure. The landmarks for an internal jugular right sided line | | | placement were identified. Anesthesia was obtained with 4 ml of 1% | | | Lidocaine . The area was prepped and draped in the usual sterile | | | fashion. The procedure was performed under direct ultrasound | | | guidance. The vessel was cannulated with return of dark red, | | | non-pulsatile blood. A wire was placed, and ultrasound confirmed its | | | presence within the lumen of the vein. A non-tunneled 8.5 Fr | | | Introducer with side port was placed using the Seldinger technique. | | | However, the wire appeared to kink within the subcutaneous tissues | | | and the introducer did not advance easily. It was withdrawn, along | | | with the wire. Pressure was held on the site for 30 minutes, without | | | apparent hematoma formation. The area was hemostatic. Ultrasound | | | showed the presence of lung sliding bilaterally on the anterior | | | chest and at the apices. A portable chest xray showed no evidence of | | | pneumothorax. An hour later, the R IJ was examined using | | | ultrasound and found to be patent, without clot or subcutaneous | | | fluid collection. The attending physician did thoroughly complete | | | the handwashing procedure. The procedure was performed using full | | | barrier precautions. Sonography was utilized for pre-procedure | | | identification of the vascular anatomy, and was used during the | | | procedure. The landmarks for an internal jugular right sided line | | | placement were identified. Anesthesia was obtained with 4 ml of 1% | | | Lidocaine . The area was prepped and [...] flushed. The line was sutured in place in | | | the usual fashion. An appropriate dressing was placed over the | | | site. Findings: There were no changes to the patient's vital | | | signs. The catheter was flushed with 10ccof normal saline. The | | | patient did tolerate the procedure well. Recommendations: A | | | CXR was ordered to verify placement. Jose Ramon Alvarado | | | R2, [facility] Emergency Medicine Personal Pager: [phone] | | | | | + + + LACTATE (03/15/2017 4:49 PM PDT) + + + + + + | Component | Value | Ref Range | Performed | Pathologist | | | | | At | Signature | + + + + + + | LACTATE | 7.5 (HH) | mmol/L | [facility] | | | | | | [facility]ORAT[facility] | | | | | | SERVICES, | | | | | | CORE | | + + + + + + + + | Specimen | + + | Blood - Blood | | (substance) | + + + + + | [...] | + + + + + | [facility] | [address] | [place] [address] | | | ИРИНА ANTOINE | PARK [...] + + + + | [facility] | [address] | [place], [place] | | | [facility] | [address] | [address] | | | TESTS | | | [...] mouth was suctioned. The stomach was suctioned and | | | OG tube removed. The MARKY was then [...] of the SCV and RA. This information was | | | communicated to the cardiac surgeons who were [...] | | RATIO, POC | | | [facility] | | [...] | Specimen | + + | Blood - Blood | | (substance) | + + + + + + + | Performing | Address | City/State/Zipcode | Phone Number | | Organization | | | | + + + + + | [facility] | [address] | [place], [place] | | | [facility] | [address] | [address] | | | TESTS | | | | + + + + + X-RAY PORTABLE CHEST 1 VIEW (03/15/2017 4:03 PM PDT) + + | Specimen | + + | | + + + + + | Narrative | Performed At | + + + | EXAM: NV CHEST 1 VIEW 03/15/17 15:42:37 HISTORY: ECMO cannula | [facility] | | placement, recent ST segment elevation [...] Service Account, Radiant Res In Interface - 03/15/2017 6:18 PM PDT EXAM: NV CHEST 1 | | VIEW 03/15/17 15:42:37 [...] | Specimen | + + | Blood - Blood | | (substance) | + + + + + + + | Performing | Address | City/State/Zipcode | Phone Number | | Organization | | | | + + + + + | [facility] | [address] | [place], [place] | | | [facility] | [facility] | [address] | | | TESTS | | | [...] (H) | 60 - 99 mg/dL | [facility] - | | | GLUCOSE, | | [...] [facility] | [address] | [place], [place] | | | [facility] | [facility] | [address] | | | TESTS | | | [...] | Specimen | + + | Blood - Blood | | (substance) | + + + + + + + | Performing | Address | City/State/Zipcode | Phone Number | | Organization | | | | + + + + + | [facility] | [address] | [place], [place] | | | [facility] | [address] | [address] | | | TESTS | | | [...] | Specimen | + + | Blood - Blood | | (substance) | + + + + + | [...] [facility] | [address] | [place] [address] | | | ИРИНА ANTOINE | PARK [...] | Specimen | + + | Blood - Blood | | (substance) | + + + + + | Narrative | Performed At | + + + | Must order with concurrent CBC INR Therapeutic ranges for full | [facility] | | anticoagulation: INR for Venous Thromboembolism | LABORATORY | | (2.0 - 3.0) INR INR for most patients with mech. valves (2.5 | SERVICES, CORE | | - 3.5) INR APTT Therapeutic Range: | | | (75 - 120) sec Heparin levels of 0.35 - 0.7 U/mL | | + + + + + + + + | Performing | Address | City/State/Zipcode | Phone Number | | Organization | | | | + + + + + | [facility] | [address] | [place] [address] | | | SERVICES, CORE | TABITHA [...] | Specimen | + + | Blood - Blood | | (substance) | + + + + + + + | Performing | Address | City/State/Zipcode | Phone Number | | Organization | | | | + + + + + | [facility] | [address] | [place] [address] | | | [facility] | [address] | | | + + + + + MAGNESIUM, PLASMA (03/15/2017 3:39 PM PDT) + +-------+ + + + | Component | Value | Ref Range | Performed | Pathologist | | | | | At | Signature | + +-------+ + + + | MAGNESIUM,P | 1.9 | 1.8 - 2.5 mg/dL | [facility] | | | [facility] | | | LABORATORY | | | | | | SERVICES, | | | | | | CORE | | + +-------+ + + + + + | Specimen | + + | Blood - Blood | | (substance) | + + + + + + + | Performing | Address | City/State/Zipcode | Phone Number | | Organization | | | | + + + + + | [facility] | [address] | [place] [address] | | | SERVICES, CORE | PARK [...] | | | LABORATORY | | | [place]OREAN | | | SERVICES, | | | [...] | Specimen | + + | Blood - Blood | | (substance) | + + + + + | Narrative | Performed At | + + + | GFR is estimated using the MDRD equation recommended by the | [facility] | | National Kidney Disease Education Program. Estimated GFR | LABORATORY | | Interpretive Information: <60 mL/min/1.73 sq m | SERVICES, CORE | | Chronic Kidney Disease <15 mL/min/1.73 sq m | [...] | + + + + + | [facility] | [address] | [place] [address] | | | SERVICES, ИРИНА | [address]ITH[address] [...] | cannulation Surgeon: Obdulio Powell Specimens: none Stable | | | to ICU Electronically signed by: Dale Mak M.D., | | | Ph.D. Professor and Chief Division of Cardiothoracic Surgery [facility] | | | [facility] - Mail Code [id number] [address] [facility] [address] | | | [place] [id number] | | + + + X-RAY PORTABLE CHEST 1 VIEW (03/15/2017 2:32 PM PDT) + + | Specimen | + + | | + + + + + | Narrative | Performed At | + + + | STUDY: NV CHEST 1 VIEW 03/15/17 14:21:08 COMPARISON: 03/15/17. [...] the report. I agree with the report | | | as now presented. | | + + + + + | Procedure Note | + + | Service Account, Radiant Res In Interface - 03/15/2017 2:46 PM PDT STUDY: NV CHEST 1 | | VIEW 03/15/17 14:21:08COMPARISON: [...] + + + + | PRODUCT | [id number] | | [facility] | | | UNIT [...] + + + + | EXPIRATION | [id number] | | [facility] | | | DATE [...] + + + + | BLOOD | [id number] | | [facility] | | | PRODUCT [...] | + + + + + | [facility] | [address] | [place] [address] | | | SERVICES, | [address] [...] + + + + | PRODUCT | [id number] | | [facility] | | | UNIT [...] + + + + | EXPIRATION | [id number] | | [facility] | | | DATE [...] + + + + | BLOOD | [id number] | | [facility] | | | PRODUCT [...] | + + + + + | [facility] | [address] | [place] [address] | | | SERVICES, | [address] [...] + + + + | PRODUCT | [id number] | | [facility] | | | UNIT [...] + + + + | EXPIRATION | [id number] | | [facility] | | | DATE [...] + + + + | BLOOD | [id number] | | [facility] | | | PRODUCT [...] [facility] | [address] | [place] [address] | | | SERVICES, | [address] [...] + + + + | PRODUCT | [id number] | | [facility] | | | UNIT [...] + + + + | EXPIRATION | [id number] | | [facility] | | | DATE [...] + + + + | BLOOD | [id number] | | [facility] | | | PRODUCT [...] [facility] | [address] | [place] [address] | | | ARASH | [address] | | | | TRANSF[facility]ION MEDICINE | | | | + + + + + CV-NB-AOP-HB,POC RT (03/15/2017 1:23 PM PDT) + + [...] | | | CA,WHOLE | | | HILL, POINT | | | BLD,POC | | [...] | Specimen | + + | Blood - Blood | | (substance) | + + + + + + + | Performing | Address | City/State/Zipcode | Phone Number | | Organization | | | | + + + + + | [facility] | [address] | [place], [place] | | | [facility] | [address] | [address] | | | TESTS | | | [...] [facility] | [address] | [place], [place] | | | [facility] | [address] | [address] | | | TESTS | | | [...] Performed At | + + + | [facility] | [facility] DEPT OF | | [facility] Adult Echocardiography [facility] [address] CARDIOLOGY | | [place], [place] [address] Ph: | | | Pt Name: RON MCKEON | | | Study Date/Time 03/15/2017 / 12:54:21 PMMRN: [id number] | | | Most recent prior: -Acc #: [id number] | | | No. 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 The LV ejection fraction is severely decreased. | | | | | | | | | 2. Visually estimated left ventricular ejection fraction is < | | | 20%. 3. Left ventricular systolic thickening is | | | globally abnormal. 4. Mildly reduced RV | | | systolic function. | | | 5. No ventricular septal defect is seen, although views are | | | technically limited. | | | 6. | | | There is a small amount of pericardial fluid which is located anterior | | | to the distal right ventricle. Prominent pericardial fat. There is | | | no right atrial or right ventricular collapse suggestive of | | | tamponade physiology. 7. Valves are not well seen. | | | 8. | | | There are no prior exams available for comparison. | | | | | | | | | + | | | + Description of Findings: Cardiac Rhythm: Normal sinus | | | rhythm.Left Ventricle: Visually estimated left ventricular ejection | | | fraction is < 20%. The LV ejection fraction is severely decreased.No | | | ventricular septal defect is seen, although views are technically | | | limited.Left Ventricular Wall Motion: Left ventricular systolic | | | thickening is globally abnormal.Atria: Left atrial size is normal. | | | Normal right atrium.Right Ventricle: The right ventricular size is | | | normal. Global RV systolic function is mildly reduced. TAPSE measures | | | 1.29cm. The RV TDI s' velocity is 12.2cm/sec.Aortic Valve: The aortic | | | valve is not well visualized.Mitral Valve: The mitral valve is not | | | well visualized. No evidence of mitral valve regurgitation.Tricuspid | | | Valve: The tricuspid valve is not well visualized. No tricuspid | | | regurgitation.Pulmonic Valve: The pulmonic valve is not well | | | visualized.Venous: The inferior vena cava was normal sized, with | | | respiratory size variation less than 50%.Pericardium: There is a small | | | amount of pericardial fluid which is located anterior to the distal | | | right ventricle. Prominent pericardial fat. There is no right atrial | | | or right ventricular collapse suggestive of tamponade physiology. | | | Additional Findings: There are no prior exams.2D Measurements | | | Doppler Measurements | | | 2D NL Values Aortic MitralLA vol A/L BP 20.8 ml | | | (40-73ml) Max Rohan Peak E 0.74 m/sLA vol A/L index 8.9 | | | ml/m2 (16-34) Mean grad Peak A 0.52 m/sLA vol MOD BP | | | 20.0 ml (40-73ml) LVOT Rohan E/A Ratio 1.43LA vol MOD index 8.5 | | | ml/m2 (16-34) LVOT Diam TDI (E/e') 6.2 | | | Tricuspid Pulmonic | | | Aorta: | | | Index:Evaluation of chamber size and geometry is accomplished through | | | the incorporation of linear, volumetric, and indexed values Report | | | electronically signed by: [id number] Yajaira Johnson MD (03/15/2017, | | | 3:38:52 PM) Final | | |2D Measurements Doppler Measurements | | | | | | 2D NL Values Aortic Mitral | | |LA vol A/L BP 20.8 ml (40-73ml) Max Rohan Peak E 0.74 m/s | | |LA vol A/L index 8.9 ml/m2 (16-34) Mean grad Peak A 0.52 m/s | | |LA vol MOD BP 20.0 ml (40-73ml) LVOT Rohan E/A Ratio 1.43 | | |LA vol MOD index 8.5 ml/m2 (16-34) LVOT Diam TDI (E/e') 6.2 | | | Tricuspid Pulmonic | | | | | | Aorta: Index: | | |Evaluation of chamber size and geometry is accomplished through the incorporation of | | |linear, volumetric, and indexed values | | | | | |Report electronically signed by: [id number] Yajaira Johnson MD (03/15/2017, 3:38:52 PM) | | | | | | | | | | | | Final | | + + + + + | Procedure Note | + + | Interface, Cardiology Results - 03/15/2017 3:38 PM [facility] | | [facility] Echocardiography Laboratory [address] [place] [address] | | [place], [place] [address] Pt Name: RON MCKEON Study Date/Time 03/15/2017 / 12:54:21 PMMRN: [id number] Most | | recent prior: -Acc #: [id number] No. previous echos: 0DOB: 1955 61 | | years Heart Rate: 145 bpmHeight: Blood Pressure: 90/67 | | mm/HgWeight: 249.0 lb Gender: MBSA: 2.34 m2 | | Order ID: [id number] Postal Service Clerk: Vahid Parmar RCSReferring Provider: | | Gaurav HobbsPatient Location: 12KModalities Performed: 2D, Color flow, Spectral [...] values Report electronically signed by: | | [id number] Yajaira Johnson MD (03/15/2017, 3:38:52 PM) Final [...] | | | |Report electronically signed by: [id number] Yajaira Johnson MD (03/15/2017, 3:38:52 PM) | | | | | | | | Final | + + + + + + + | Performing | Address | City/State/Zipcode | Phone Number | | Organization | | | | + + + + + | [facility] | [address] | [place], [place] | | | CARDIOLOGY | [address] | [address] | | + + + + + X-RAY PORTABLE CHEST 1 VIEW (03/15/2017 12:46 PM PDT) + + | Specimen | + + | | + + + + + | Narrative | Performed At | + + + | STUDY: NV CHEST 1 VIEW 03/15/17 12:12:08 COMPARISON: None. [...] Service Account, Radiant Res In Interface - 03/15/2017 1:10 PM PDT STUDY: NV CHEST 1 | | VIEW 03/15/17 12:12:08COMPARISON: [...] + + + + + + | CRISTOBAL | 463 | ms | [facility] [...] + + + + + | [facility] | [address] | [place], [place] | | | CARDIOLOGY | [address] | [address] | | + + + + + [...] | Specimen | + + | Blood - Blood | | (substance) | + + + + + + + | Performing | Address | City/State/Zipcode | Phone Number | | Organization | | | | + + + + + | [facility] | [address] | [place] [address] | | | SERVICES, | [address] [...] | Specimen | + + | Blood - Blood | | (substance) | + + + + + + + | Performing | Address | City/State/Zipcode | Phone Number | | Organization | | | | + + + + + | [facility] | [address] | [place] [address] | | | SERVICES, | [address] [...] | Specimen | + + | Blood - Blood | | (substance) | + + + + + + + | Performing | Address | City/State/Zipcode | Phone Number | | Organization | | | | + + + + + | [facility] | [address] | [place] [address] | | | SERVICES, CORE | PARK [...] | Specimen | + + | Blood - Blood | | (substance) | + + + + + | Narrative | Performed At | + + + | Immature Granulocytes (IG) include metamyelocytes, myelocytes | [facility] | | and promyelocytes. Bands are not included in the IG count. Bands are | LABORATORY | | included in the neutrophil count. | SERVICES, CORE | + + + + + + + + | Performing | Address | City/State/Zipcode | Phone Number | | Organization | | | | + + + + + | [facility] | [address] | [place] [address] | | | SERVICES, CORE | [address] [...] | Specimen | + + | Blood - Blood | | (substance) | + + + + + + + | Performing | Address | City/State/Zipcode | Phone Number | | Organization | | | | + + + + + | [facility] | [address] | [place] [address] | | | SERVICES, | [address] [...] | Specimen | + + | Blood - Blood | | (substance) | + + + + + | [...] [facility] | [address] | [place] [address] | | | ИРИНА ANTOINE | [address] [...] | Specimen | + + | Blood - Blood | | (substance) | + + + + + | Narrative | Performed At | + + + | INR Therapeutic ranges for full anticoagulation: INR for | [facility] | | Venous Thromboembolism (2.0 - 3.0) INR INR for | LABORATORY | | most patients with mech. valves (2.5 - 3.5) INR APTT | SERVICES, CORE | | Therapeutic Range: (75 - 120) sec | | | Heparin levels of 0.35 - 0.7 U/mL | | + + + + + + + + | Performing | Address | City/State/Zipcode | Phone Number | | Organization | | | | + + + + + | [facility] | [address] | [place] [address] | | | SERVICES, CORE | PARK [...] | Specimen | + + | Blood - Blood | | (substance) | + + + + + | [...] [facility] | [address] | [place] [address] | | | SERVICES, CORE | PARK [...] | | | LABORATORY | | | [place] | | | SERVICES, | | | [...] | Specimen | + + | Blood - Blood | | (substance) | + + + + + | [...] | mL/min/1.73 sq m Chronic Kidney Disease <15 | | | mL/min/1.73 sq m Kidney Failure Estimated GFR | | | greater that 60 mL/min/1.73 sq m is of limited clinical value. The | | | MDRD equation is not valid in the following situations: - Patients | | | under 18 years of age - Severe malnutrition or obesity - Vegetarian | | | diet - Rapidly changing kidney function | | + + + + + + + + | Performing | Address | City/State/Zipcode | Phone Number | | Organization | | | | + + + + + | [facility] | [address] | [place] [address] | | | SERVICES, CORE | [address] | | | + + + + + [id number] ISIDRO RT (03/15/2017 12:16 PM PDT) + + [...] | Specimen | + + | Blood - Blood | | (substance) | + + + + + + + | Performing | Address | City/State/Zipcode | Phone Number | | Organization | | | | + + + + + | [facility] | [address] | [place], [place] | | | [facility] | [address] | [phone] | | | TESTS | | | [...] of unspecified type of vessel, | | [place] or graft | + + | Tongue [...] | | EVERY 6 HOURS, First dose (after | | AM PDT | | | | | last modification) on Thu | | | | | | | 03/20/17 at [...] | | | TIMES DAILY, First dose (after | | AM PDT | | | | | last modification) on Thu03/28/17 | | | | | | | [...] | | EVERY 6 HOURS, First dose (after | | AM PDT | | | | | last modification) on e 03/17/17 | | | | | | | at 1045, Until Discontinued | | | | | [...] | | | | HOURS, First dose (after last | | AM PDT | | | | | modification) on 03/23/17 at | | | | | | | 1000, Until Discontinued | | | | [...] | | | | HOURS, First dose (after last | | AM PDT | | | | | modification) on Thu03/25/17 at | | | | | | | 1600, Until Discontinued | | | | [...] 5:37 | | | | | dose, Briscoe 03/29/17 at 0530 | | AM PDT | | | | + +-------+ +--------+---+---+ + +---+ | | | + +---+ | acetaminophen (TYLENOL) tablet | | | 1 dose, Starting Thu03/25/17 at | | | 1515, Until Thu03/25/17 at 1521 | | + +---+ | | | + +---+ | artificial tears (dextran | | | 70-hypromellose) (NATURE'S TEARS) | | | 0.1-0.3 % ophthalmic drops 1 | | | drop 1 drop, Both Eyes, | | | NEEDED, Starting e 03/24/17 at | | | 1825, Until Radha 04/02/17 at 1, | | | Dry Eyes | | [...] | | | HOURS, First dose on 03/15/17 | | | | | | [...] 9:37 | | | | | dose (after last modification) on | | AM PDT | | | | | 03/24/17 at 0900, Until | | | | [...] Until Radha 04/02/17 | | | at 2030, 2nd line for no BM in | [...] | calcium gluconate 2 g in | | 03/15/20 | 2 g | | [...] | | | | ONCE, 1 dose, [facility] 03/19/17 at 1415 | | PM PDT | | | | + +---------+ +-----+---+---+ +---+---+ | | | +---+---+ + +-------+ + +---+---+ | captopril (CAPOTEN) dose 18.75 | Given | 03/24/20 | 18.75 mg | | | | mg 18.75 mg, oral, EVERY 8 | | 17 2:18 | | | | | HOURS, First dose (after last | | PM PDT | | | | | modification) on Thu03/24/17 at | | | | [...] | | | 8 HOURS, First dose (after last | | PM PDT | | | | | modification) on Thu03/20/17 at | | | | [...] | | | 8 HOURS, First dose (after last | | PM PDT | | | | | modification) on 03/21/17 at | | | | | | | 2200, Until Discontinued | | | | | | + +-------+ +---------+---+---+ +---+---+ | | | +---+---+ + +-------+ +---------+---+---+ | captopril (CAPOTEN) dose 6.25 | Given | 03/23/20 | 6.25 mg | | | | mg 6.25 mg, feeding tube, EVERY | | 17 6:14 | | | | | 8 HOURS, First dose (after last | | AM PDT | | | | | modification) on 03/22/17 at | | | | | [...] | | | | | First dose (after last | | PM PDT | | | | | modification) on 03/23/17 at | | | | | | [...] | | ONCE, 1 dose, 03/20/17 at | | AM PDT | [...] | | EVERY 8 HOURS, First dose (after | | AM PDT | | | | | last modification) on Sun | | | | | [...] 10:04 | | | | | dose, Jeannette 03/22/17 at 1000 | | AM PDT | | | | + +-------+ + +---+---+ +---+---+ | | | +---+---+ + +-------+ +---------+---+---+ | captopril (CAPOTEN) tablet 12.5 | Given | 03/21/20 | 12.5 mg | | | | mg 12.5 mg, feeding tube, EVERY | | 17 5:28 | | | | | 8 HOURS, First dose (after last | | AM PDT | | | | | modification) on Thu03/21/17 at | | | | | | | 0600, Until Discontinued | | | | | | + +-------+ +---------+---+---+ +---+---+ | | | +---+---+ + +-------+ +---------+---+---+ | captopril (CAPOTEN) tablet 12.5 | Given | 03/24/20 | 12.5 mg | | | | mg 12.5 mg, oral, EVERY 8 | | 17 6:32 | | | | | HOURS, First dose (after last | | AM PDT | | | | | modification) on Thu03/23/17 at | | | | | | | 2200, Until [...] | | | | | First dose (after last | | PM PDT | | | | | modification) on Thu03/24/17 at | | | | | | | 2200, Until [...] PM PDT | | | | | (after last modification) on Mon | | | | | | | 03/23/17 at 2100, Last dose on Tue | | | | | | | 03/24/17 at 2100 | | | | | [...] PDT | | | | | dose, Briscoe 03/15/17 at 2100 | | | | | | + +-------+ +---------+---+---+ +---+---+ | | | +---+---+ + +-------+ +--------+---+---+ | cisatracurium (NIMBEX) | Given | 03/15/20 | 2,000 | | | | injection 1 dose, Starting Thu 1:52 | mcg | | | | 03/15/17 at 1345, Until Briscoe 03/15/17 | | PM PDT | | [...] 9:37 | | | | | dose (after last modification) on | | AM PDT | | | | | 03/24/17 at 0900, Until | | | | [...] | | | | First dose on Radha 03/19/17 at | | AM PDT | [...] | | | | | First dose (after last | | AM PDT | | | | | modification) on 03/22/17 at | | | | | [...] 9:32 | | | | | dose (after last modification) on | | AM PDT | | | | | 03/24/17 at 0900, Until | | | | [...] | | | | | dose on 03/18/17 at 1000, | | AM PDT | [...] | | | DAILY, First dose on Thu03/15/17 | | AM PDT | | | [...] | | | DAILY, First dose on [facility] 03/19/17 | | AM PDT | | | [...] | | | | | First dose (after last | | AM PDT | | | | | modification) on Thu03/23/17 at | | | | | [...] | | | | at 1430, Until 03/17/17 at | | | | [...] | | | | | 1354, Until Tu03/17/17 at 1530, | | | | | [...] | | | | Starting Thu03/30/17 at 0429, | | AM PDT | | | | | Until Thu03/30/17 at 0429 | | | | | | + [...] 4:26 | | | | | Starting 03/30/17 at 0426, | | AM PDT | | | | | Until 03/30/17 at 0426 | | | | | | + [...] | | mg 20 mg, intravenous, ONCE, 4:00 | | | | | dose, [facility] 03/18/17 at 1615 | | PM PDT | | | | + +-------+ +-------+---+---+ +---+---+ | | | +---+---+ + +-------+ +-------+---+---+ | furosemide (LASIX) injection 20 | Given | 03/19/20 | 20 mg | | | | mg 20 mg, intravenous, ONCE, 4:45 | | | | | dose, [facility] 03/19/17 at 1630 | | PM PDT | | | | + +-------+ +-------+---+---+ +---+---+ | | | +---+---+ + +-------+ +-------+---+---+ | furosemide (LASIX) injection 20 | Given | 03/20/20 | 20 mg | | | | mg 20 mg, intravenous, ONCE, | | 17 3:07 | | | | | dose, Thu03/20/17 at 0400 | | AM PDT | | | | + +-------+ +-------+---+---+ +---+---+ | | | +---+---+ + +-------+ +-------+---+---+ | furosemide (LASIX) injection 20 | Given | 03/20/20 | 20 mg | | | | mg 20 mg, intravenous, ONCE, | | 17 5:39 | | | | | dose, Thu03/20/17 at 1745 | | PM PDT | [...] 8:53 | | | | | dose, [facility] 03/18/17 at 0830 | | AM PDT | | | | + +-------+ +-------+---+---+ +---+---+ | | | +---+---+ + +-------+ +-------+---+---+ | furosemide (LASIX) injection 40 | Given | 03/19/20 | 40 mg | | | | mg 40 mg, intravenous, ONCE, | 10:20 | | | | | dose, [facility] 03/19/17 at 1100 | | AM PDT | | | | + +-------+ +-------+---+---+ +---+---+ | | | +---+---+ + +-------+ +-------+---+---+ | furosemide (LASIX) injection 40 | Given | 03/21/20 | 40 mg | | | | mg 40 mg, intravenous, ONCE, 1 | | 17 12:56 | | | | | dose, 03/21/17 at 1230 | | PM PDT | | | | + +-------+ +-------+---+---+ +---+---+ | | | +---+---+ + +-------+ +-------+---+---+ | furosemide (LASIX) injection 40 | Given | 03/22/20 | 40 mg | | | | mg 40 mg, intravenous, ONCE, | | 17 4:12 | | | | | dose, 03/22/17 at 0400 | | AM PDT | | | | + +-------+ +-------+---+---+ +---+---+ | | | +---+---+ + +-------+ +-------+---+---+ | furosemide (LASIX) injection 60 | Given | 03/18/20 | 60 mg | | | | mg 60 mg, intravenous, ONCE, 10:06 | | | | | dose, 03/18/17 at 2200 | | PM PDT | | | | + +-------+ +-------+---+---+ +---+---+ | | | +---+---+ + +-------+ +-------+---+---+ | furosemide (LASIX) injection 60 | Given | 03/21/20 | 60 mg | | | | mg 60 mg, intravenous, ONCE, 6:46 | | | | | dose, [...] mg, intramuscular, | | | NEEDED, [facility] 03/24/17 at | | | 1120, Until Radha 04/02/17 at 2030, | | | CBG less than 70 mg/dL per Adult | | | Hypoglycemia Protocol | | + +---+ | | | + +---+ | glucose chewable tablet 16 g | | | 16 g, oral, NEEDED, Starting | | | [facility] 03/24/17 at 1120, Until Radha | | [...] | | | | | | Starting [facility] 03/19/17 at 1900, | | | | [...] | NEEDED, Starting Thu03/17/17 at | | | | | [...] | | | | | 2100, Until Thu03/25/17 at 1443, | | | | | [...] | | | | | | Until Thu03/24/17 at 1123, Per | | | | [...] | | | intravenous, ONCE, 1 dose, Jeannette | e Change | 17 6:00 | [...] intravenous, ONCE, 1 dose, Mon | | 12:15 | | | | | 03/16/17 at 0115 | | AM PDT | | | | + +---------+ +--------+---+---+ +---+---+ | | | +---+---+ + +---------+ +--------+---+---+ | lactated Ringers IV 250 mL, | New Bag | 03/16/20 | 250 mL | | | | intravenous, ONCE, 1 dose, Thu | | 6:21 | | | | | 03/16/17 at 1845 | | PM PDT | | | | + +---------+ +--------+---+---+ +---+---+ | | | +---+---+ + + + +--------+---+---+ | lactated Ringers IV 500 mL, | Restarte | 03/16/20 | 250 mL | | | | intravenous, ONCE, 1 dose, Tue | d | 17 11:50 | | [...] | | | intravenous, ONCE, 1 dose, Tue | | 17 9:21 | | | [...] | EVERY 24 HOURS, First dose on e | | AM PDT | | | [...] | | | | | 03/30/17 at 0413, Until Mon | | | | | | | 03/30/17 at 0413 | | | | | | + +-------+ +-------+---+---+ +---+---+ | | | +---+---+ + +-------+ +---+---+---+ | lidocaine (XYLOCAINE) 5 % | Given | 03/30/20 | | | | | ointment topical, NEEDED, | | 17 9:31 | | | | | Starting 03/28/17 at 0928, | | AM PDT | | | | | Until Radha 04/02/17 at 2031, | | | | | | | [...] | | | | ONCE, 1 dose, 03/15/17 at 1815 | | PM PDT [...] 17 9:03 | | | | | (after last modification) on Mon | | PM PDT | [...] | | | oral, DAILY, First dose (after | | AM PDT | | | | | last modification) on Thu03/31/17 | | | | | | | [...] 17 1:50 | | | | | 7/9/17 at 1346, Until 03/15/17 | | PM [...] | | | 03/17/17 at 1515, Until Tue | | | | | [...] | | | | | NEEDED, Starting [facility] 03/26/17 at | | | | | | | 0849, Until Thu03/26/17 at 1017, | | | | | [...] | oxyCODONE (immediate release) | Given | 03/29/20 | 15 mg | | | | [...] | | | | | NEEDED, Starting Thu03/25/17 at | | | | | | [...] | | | (ROXICODONE) liquid 5-15 mg 5-15 | | 17 12:05 | | | [...] | | | | | | Until [facility] 04/02/17 at 2030, severe | | | [...] | | | | | First dose (after last | | | | | | | modification) on Thu03/18/17 at | | | | [...] +-------+-------+---+ | pantoprazole (PROTONIX) IV 40 | New Bag | 03/17/20 | 40 mg | 200 [...] + +---------+ +-------+---+---+ | piperacillin-tazobactam (ZOSYN) | New Bag | 03/15/20 | 4.5 g | | [...] | | at 0700, Last dose on 03/22/17 | | | | | | | [...] | | | TWICE DAILY, First dose (after | | AM PDT | | | | | last modification) on Thu03/18/17 | | | | | [...] | | | | DAILY, First dose (after last | | AM PDT | | | | | modification) on Thu03/25/17 at | | | | | | [...] AM PDT | | | | | 03/25/17 at 1444, Until Radha | | | [...] | | | DAILY, First dose on 03/23/17 | | AM PDT | | | [...] | | | TWICE DAILY, First dose (after | | PM PDT | | | | | last modification) on Thu03/24/17 | | | | | | | at 2100, [...] | | | | ONCE, 1 dose, [facility] 03/20/17 at 0400 | | AM PDT [...] | | | | ONCE, 1 dose, 03/18/17 at 2300 | | PM PDT | [...] | | | | | 1551, Until 03/18/17 at 0907, | | | | | [...] | | | | | NEEDED, Starting 03/18/17 at | | | | | | | 0906, Until 03/22/17 at 0927, | | | [...] | | | | | CONTINUOUS, Starting Briscoe 03/15/17 | | | | | | | at 1245, Until Briscoe 03/15/17 at 1547 | | | | [...] | | | | at 1630, Until 03/17/17 at | | | | [...] | | | | BEDTIME, First dose (after last | | PM PDT | | | | | modification) on Thu03/23/17 at | | | | | | | 2200, Until [...] 12:23 | | | | | dose, Sharla 03/20/17 at 1245 | | PM PDT [...] | | oral, TWICE DAILY, First dose | | AM PDT | | | | | (after last modification) on Mon | | | | | | | 03/23/17 at [...] | | | | ONCE, 1 dose, Thu03/30/17 at 1715 | | PM PDT | [...] PDT | | | | | dose, Thu03/30/17 at 1230 | | | | | [...] | | | | | | | Briscoe 03/22/17 at 0400 | | | | [...] +---+---+ | vancomycin (VANCOCIN) IV 1,500 | | 03/16/20 | 1,500 mg | | | | mg 1,500 mg, intravenous, EVERY | 17 5:49 | | | | | 24 HOURS, First dose (after last | | PM PDT | | | | | modification) on Thu03/16/17 at | | | | | | | 1800, Until Discontinued | | | | | | + +---------+ + +---+---+ +---+---+ | | | +---+---+ + +---------+ + +---+---+ | vancomycin (VANCOCIN) IV 1,500 | | 03/19/20 | 1,500 mg | | | | mg 1,500 mg, intravenous, | 2:45 | | | | | 12 HOURS, First dose (after last | | PM PDT | | | | | modification) on Thu03/18/17 at | | | | | | | 1400, Until Discontinued | | | | | | + +---------+ + +---+---+ +---------+ + +---+---+ | New Bag | 03/19/20 | 1,500 mg | | | | | 17 3:13 | | | | | | AM PDT | | | | +---------+ + +---+---+ | New Bag | 03/18/20 | 1,500 mg | | | | | 17 1:30 | | | | | | PM PDT | | | | +---------+ + +---+---+ +---+---+ | | | +---+---+ + +---------+ + +-------+---+ | vancomycin (VANCOCIN) IV 2,000 | New | 03/15/20 | 2,000 mg | 250 | | | mg 2,000 mg, intravenous, ONCE, | | 17 5:55 | | mL/hr | | | 1 dose, Jeannette 03/15/17 at 1700 | | PM PDT | | | | + +---------+ + +-------+---+ +---+---+ | | | +---+---+ + +---------+ + +---+---+ | vancomycin (VANCOCIN) IV 2,000 | New Bag | 03/18/20 | 2,000 mg | | | | mg 2,000 mg, intravenous, ONCE, | | 17 2:04 | | | | | 1 dose, 03/18/17 at 0130 | | AM PDT | | | | + +---------+ + +---+---+ +---+---+ | | | +---+---+ + +-------+ +-------+---+---+ | warfarin (COUMADIN) tablet 10 | Given | 03/27/20 | 10 mg | | | | mg 10 mg, oral, EVERY EVENING, | | 17 10:08 | | | | | First dose (after last | | PM PDT | | | | | modification) on Thu03/24/17 at | | | | [...] EVERY EVENING, | | | First dose (after last | | | modification) on [facility] 04/02/17 at | | | 2100, Until Discontinued | | + +---+ | | | + +---+ + +-------+ +--------+---+---+ | warfarin (COUMADIN) tablet 2.5 | Given | 03/29/20 | 2.5 mg | | | | mg 2.5 mg, oral, EVERY EVENING, | | 17 9:49 | | | | | First dose (after last | | PM PDT | | | | | modification) on Briscoe 03/29/17 at | | | | | | [...] | | | | | First dose (after last | | PM PDT | | | | | modification) on 03/28/17 at | | | | | | | 2100, Until Discontinued | | | | | | + +-------+ +------+---+---+ +---+---+ | | | +---+---+ + +-------+ +------+---+---+ | warfarin (COUMADIN) tablet 5 mg | Given | 03/31/20 | 5 mg | | | | 5 mg, oral, EVERY EVENING, | | 17 9:16 | | | | | First dose (after last | | PM PDT | | | | | modification) on Thu03/31/17 at | | | | | | | 2100, Until Discontinued | | | | | | + +-------+ +------+---+---+ +---+---+ | | | +---+---+ + +-------+ +--------+---+---+ | warfarin (COUMADIN) tablet 7.5 | Given | 03/22/20 | 7.5 mg | | | | mg 7.5 mg, feeding tube, EVERY | | 17 9:37 | | | | | EVENING, First dose (after last | | PM PDT | | | | | modification) on Thu03/22/17 at | | | | | | | 2100, Until Discontinued | | | | | | + +-------+ +--------+---+---+ +---+---+ | | | +---+---+ + +-------+ +--------+---+---+ | warfarin (COUMADIN) tablet 7.5 | Given | 03/23/20 | 7.5 mg | | | | mg 7.5 mg, oral, EVERY EVENING, | | 17 10:01 | | | | | First dose (after last | | PM PDT | | | | | modification) on Thu03/23/17 at | | | | | [...] | | | | | First dose (after last | | PM PDT | | | | | modification) on Thu04/01/17 at | | | | | | [...]
--- OUTSIDE RECORDS SUMMARY | ~2020-03-04 | XMS | Encounter Summary ---
Demographics + + + | Address | [address] | | | [place] [address] | + + + | Home Phone [...] [place] | | | | | [address] | | + + + + + Care Team Providers + +------+ + | Care Powder Nipper Name | Role | Phone | + +------+ + | Amy Olivares MD | PCP | | + +------+ + Reason for Visit + +--------+ + | Reason | Onset | Comments | | | Date | | + +--------+ + | Medication | 06/21/ | | | Management | 2019 | | + +--------+ + Encounter Details +--------+ + + + + | Date | Type | Department | Care Team | Description | +--------+ + + + + | 06/21/ | Telephone | [facility] | [place], | Medication | | 2019 | | NEPHROLOGY [address] | [address] [address] | Management | | | | [address] | [address] [facility] | | | | | [place], [place] | [address] [place], [place] | | | | | [address] | [address] | | | | | [phone] | | | +--------+ + + + [...] this encounter Miscellaneous Notes Telephone Encounter - Sharon Saldana RN - 06/21/2019 2:07 PM PDTPatient returned call a nd Dr. Olivares agrees with potassium chloride dose increase. elephone Encounter - Sharon Saldana RN - 06/21/2019 9:41 AM PDTPatient called and notified of lab results. Patient will discuss potassium dose change with Dr. Olivares and then will notify our office.E lectronically signed by Sharon Saldana RN at 06/21/2019 9:45 AM PDTTelephone Encounter - Sharon Saldana RN - 06/21/2019 9:41 AM PDT----- Message from ADARSH Sethi sent at 06/20/2019 17:18 PDT ----- Renal function has improved but potassium is still low. Increase potassium supplement to 20 meq TID. Thanks ----- Message ----- From: Sharon Saldana RN Sent: 06/20/2019 16:38 To: ADARSH Sethi External labs entered. documented in this e ncounter Plan of Treatment +--------+ + + + + | Date | Type | Specialty | Care Team | Description | +--------+ + + + + | 03/12/ | Office | Nephrology | [place], | | | 2019 | Visit | | [address]AR[facility] [address] | | | | | | [address] [facility] | | | | | | [address] | | | | | | [address] | | | | | | | | +--------+ + + + + | 04/16/ | Office | Cardiology | Alin Anderson | | | 2019 | Visit | | MD Cheryl Arreguin | | | | | | [address] | | | | | | [place] [address] | | | | | | [phone] | | | | | | | [...] [place] | | | | | | [address] | | | | | | | | +--------+ + + + + documented as of this encounter Visit Diagnoses Not on filedocumented in this encounter"
--- OUTSIDE RECORDS SUMMARY | ~2020-03-04 | XMS | Encounter Summary ---
Demographics + + + | Address | [address] | | | [place] [address] | + + + | Home Phone | | + + + | Preferred Language | Unknown | + + + | Marital Status | | + + + | Restorationist Affiliation | NRP | + + + | Race | White | + + + | Ethnic Group | Not or | + + + Author + + + | Author | [facility] | + + + | Organization | [facility] | + + + | Address | Unknown | + + + | Phone | Unavailable | + + + Support + + + + + | Name | Relationship | Address | Phone | + + + + + | Venice Mckeon | ECON | [address] | | | | | [place] [address] | | + + + + + Care Team Providers + +------+ + | Care Sanitary Aide Name | Role | Phone | + [...] + + | 10/12/ | Hospital | Diagnostic Imaging | | | | 2017 | Encounter | Services at [facility] | | | | | | [address] | | | | | | [address] [place] | | | | | | [facility] | | | | | | [place], [place] | | | | | | [address] | | | | | | [phone] | | | +--------+ + + + [...] + + documented as of this encounter Medications at Time of Discharge + + + +---------+ + + | Medication | Sig | Dispensed | Refills | Start | End Date | | | | | | Date | | + + + +---------+ + + | acetaminophen 500 | Take 2 tablets by | 100 | 0 | 10/17/19 | | | mg oral | mouth every six | tablet | | 18 | | | tabletIndications: | hours as needed. | | | | | | pain [...] + + +---------+ + + | aspirin chewable | Chew and swallow 1 | 30 | 11 | 10/18/19 | | | 81 mg oral | tablet once daily. | tablet | | 18 | | | tablet,chewableIndic | Indications: | | | | | | ations: myocardial | myocardial | | | | | | infarction | infarction | | | | | | prevention | prevention | | | | | + + + +---------+ + + | atorvastatin 80 mg | Take 1 tablet by | 30 | 11 | 10/18/19 | | | oral | mouth once daily. | tablet | | 18 | | | tabletIndications: | Indications: | | | | | | myocardial | myocardial | | | | | | infarction | infarction | | | | | | prevention | prevention | | | | | + + + +---------+ + + | cholecalciferol | Take 1 tablet by | 30 | 0 | 07/27/20 | | | (Vitamin D3) | mouth [...] + + +---------+ + + | clopidogrel 75 mg | Take 1 tablet by | 30 | 11 | 10/18/19 | | | oral | mouth once daily. | tablet | | 18 | | | tabletIndications: | Indications: | | | | | | myocardial | myocardial | | | | | | infarction | infarction | | | | | | prevention | prevention | | | | | + + + +---------+ + + | gabapentin 300 mg | Take 1 capsule by | 90 | 0 | 10/17/19 | | | oral | mouth three times | capsule | | 18 | | | capsuleIndications: | daily. Indications: | | | | | | postoperative acute | Postoperative Acute | | | | | | pain | Pain | | | | | + [...] + + + +---------+ + + | metFORMIN 500 mg | Take 1 tablet by | 60 | 0 | 10/17/19 | | | oral | mouth two times | tablet | | 18 | | | tabletIndications: | daily. Resume on | | | | | | type 2 diabetes | 10/19. Indications: | | | | | | mellitus | type 2 diabetes | | | | | | | mellitus | | | | | + + + +---------+ + + | metoprolol | Take 1 tablet by | 30 | 0 | 10/17/19 | | | succinate 25 mg oral | mouth once daily. | tablet | | 18 | | | tablet extended | Indications: | | | | | | release 24 | Myocardial | | | | | | hrIndications: | Reinfarction | | | | | | myocardial | Prevention | | | | | | reinfarction | | | | | | | prevention | | | | | | + + + +---------+ + + | nitroglycerin 0.4 | Place 1 tablet under | 25 | 2 | 10/17/19 | | | mg sublingual | tongue and allow to | tablet | | 18 | | | tablet, sublingual | dissolve every 5 | | | | | | | minutes as needed | | | | | | | for chest pain. | | | | | | | Max of 3 doses in 15 | | | | | | | minutes. | | | | | + + [...] + + +---------+ + + | pantoprazole 40 mg | Take 1 tablet by | 60 | 11 | 10/17/19 | | | oral tablet,delayed | mouth two times | tablet | | 18 | | | release (DR/EC) | daily. | | | | | + + [...] | + +--------+ + + + | MR CARDIAC | Routin | 10/12/2017 | | Results for this | | COMPREHENSIVE W/O | e | 12:38 PM | | procedure are in the | | CONTRAST | | PST | | results section. | + +--------+ + + + documented in this encounter Results MR CARDIAC COMPREHENSIVE W/O CONTRAST (10/12/2017 12:38 PM PST) + + | Specimen | + + | | + + + + + | Narrative | Performed At | + + + | Report ====== African History Professor: Rodríguez Fortune ([id number])shubham | [facility] | | [facility] Life Director: shubham lockhart Fellow: shubham lockhart | RADIOLOGY | | Appeals Nurse: shubham lockhart Viewer: shubham lockhart Report Date: | CARDIAC IMAGING | | Oct 2017, 09:22:25 [facility] Patient ------- Patient: RON MCKEON | | | Acc #: [id number] | | | Ethnicity: N Status: Final Report Report Number: [id number] Gender: Male | | | Birthdate: 1955 (61 yrs) Study Date: 12 Oct 2017 Study | | | Description: CMR with Flows with Contrast Referring Physician: | | | RAJIV HECK Blood Pressure: / Heart rate: Height (cm): 0 | | | Weight (kg): 89 BMI (kg/m ): 0 BSA (m ): 0 (Mosteller Formula) | | | Image Quality: Good Scanner Continuing Education Specialist: REPP Scanner | | | Model: Cignis Scanner Serial Number: [id number] Scanner Software | | | Platform: 5.3.15.3.1.0 Staff: Rodríguez Fortune Modality: MR | | | Indication Name: routine Protocol Name: CMR W Flows WO Contrast | | | Findings -------- Non-cardiac findings were reviewed by Dr. Curtis. | | | This exam was terminated prematurely and is lmiited to rn gastroenterology images. | | | There are bilateral pleural effusions. There is metal artifact | | | obscuring the heart. The metal structures were not readily | | | identifiable on limited chest xray. Primary team was notified of the | | | findings and termination of further sequences. Summary ------- 1. | | | There is metal artifact obscuring the heart. The metal structures were | | | not readily identifiable on limited chest xray. Primary team was | | | notified of the findings and termination of further sequences. 2. | | | There are bilateral pleural effusions. 3. Probable left atrial | | | enlargement. I have personally reviewed the images and, if | | | necessary, edited the report. I agree with the report as now | | | presented. | | + + + + + | Procedure Note | + + | Service Account, [employer] Res In Interface - 10/16/2017 9:22 AM PST | | Report======African History Professor: Rodríguez Fortune ([id number]), shubham Rodriguezalyst: shubham | | Ronaldllow: shubham Garciaechnician: shubham Johniewer: shubham | | [place] Date: 16 Oct 2017, 09:22:25 PSTPatient-------Patient: RON MCKEON | | JMedical Record Number: [id number] ID: [id number] #: [id number]: NStatus: | | Final ReportReport Number: [id number]: MaleBirthdate: 1955 (61 yrs)Study Date: 05 | | Oct 2017Study Description: CMR with Flows with ContrastReferring Physician: RAJIV | | HEITNERBlood Pressure: /Heart rate:Height (cm): 0Weight (kg): 89BMI (kg/m ): 0BSA | | (m ): 0 (Mosteller Formula)Image Quality: NovaSom Continuing Education Specialist: Cuipo | | Verified Identity Pass Model: Bandwagon Serial Number: [id number] Software Platform: | | [id number]: Rodríguez FortuneModality: MRIndication Name: routineProtocol Name: | | CMR W Flows WO ContrastFindings--------Non-cardiac findings were reviewed by | | Fuss.This exam was terminated prematurely and is lmiited to rn gastroenterology images.There are | | bilateral pleural effusions. [...] report as now presented. | |Referring Physician: RAJIV HECK | |Blood Pressure: / | |Heart rate: | |Height (cm): 0 | |Weight (kg): 89 | |BMI (kg/m ): 0 | |BSA (m ): 0 (Mosteller Formula) | |Image Quality: Good | |Scanner Continuing Education Specialist: REPP | |Scanner Model: Cignis | |Scanner Serial Number: [id number] | |Scanner Software Platform: 5.3.15.3.1.0 | |Staff: Rodríguez Fortune | |Modality: MR | |Indication Name: routine | |Protocol Name: CMR W Flows WO Contrast | |Findings | |-------- | |Non-cardiac findings were reviewed by Dr. Curtis. | |This exam was terminated prematurely and is lmiited to rn gastroenterology images. | |There are bilateral pleural effusions. [...] [facility] | | | | | CARDIAC IMAGING | | | | + +---------+ + + documented in this encounter Visit Diagnoses Not on filedocumented in this encounter"
--- OUTSIDE RECORDS SUMMARY | ~2020-03-04 | XMS | Encounter Summary ---
Demographics + + + | Address | [address] | | | [place] [address] | + + + | Home Phone | | + + + | Preferred Language | Unknown | + + + | Marital Status | | + + + | Scientology Affiliation | Unknown | + + + | Race | Unknown | + + + | Ethnic Group | Unknown | + + + Author + + + | Author | [facility] | | | and [place] | + + + | Organization | [facility] | | | and [place] | + + + | Address | Unknown | + + + | Phone | Unavailable | + + + Support + + + + + | Name | Relationship | Address | Phone | + + + + + | Venice Will | ECON | [place], [place] | | | | | [address] | | + + + + + Care Team Providers + +------+ + | Care Sawmill Manager Name | Role | Phone | + +------+ + PCP | Unavailable | + +------+ + Encounter Details +--------+---------+ + + + | Date | Type | Department | Care Team | Description | +--------+---------+ + + + | 12/03/ | Office | [facility] | Randy Figueroa, | Coronary artery | | 2018 | Visit | MED CTR CARDIAC | MD [address] | disease involving | | | | REHABILITATION [address] | [place], | [place] coronary | | | | [address] [place] | [place] [address] | artery of [place] | | | | [place] [address] | [phone] | heart without angina | | | | [phone] | | pectoris (Primary | | | | | | Dx); Ischemic | | | | | | cardiomyopathy | +--------+---------+ + + + Social History [...] of this encounter Progress Gael Ortega - 12/03/2017 9:00 AM PDT [facility] [address] [facility] [address] Cardiac Rehab Date: 12/03/2017 Patient Information Patient Name: Bob Will Date of : 1955 Age: 62 y.o. Encounter Diagnoses Code Name Primary? I25.10 Coronary artery disease involving [place] coronary artery of [place] heart without angina pectoris Yes I25.5 Ischemic cardiomyopathy Number of Visits Approved: 36 Taken Medications Today? Yes Any Changes in Medications? No Any Problems to Report? No Pain Level? 0/10 Denies any adverse symptoms during exercise. Sinus rhythm without ectopy. SBP with drop from 115 to 105. Compliant with medications and therapeutic lifestyle changes. Continue monitored exercise. Any abnormal vital signs or rhythm strips will be reported in progress note. Electronically signed by: Gael Woo, 12/03/2017 15:01 Patient Name: Bob Will/: 1955/ documented in this encounte r Plan of Treatment +--------+ + + + + | Date | Type | Specialty | Care Team | Description | +--------+ + + + + | 03/12/ | Office | Nephrology | Litzy, | | | 2019 | Visit | | [address] | | | | | | [address] | | | | | | [address] [place] | | | | | | [address] | | | | | | | | +--------+ + + + + | 04/16/ | Office | Cardiology | Alin Anderson | | 2019 | Visit | | MD [address] | | | | | | [address] | | | | | | [place] [address] | | | | | | [phone] | | | | | | | [...] [place] | | | | | | [address] | | | | | | | | +--------+ + + + + documented as of this encounter Visit Diagnoses + + | Diagnosis | + + | Coronary artery disease involving [place] coronary artery of [place] heart without | | angina pectoris - Primary | + + | Ischemic cardiomyopathy Other specified forms of chronic ischemic heart disease | + + documented in this encounter"
--- OUTSIDE RECORDS SUMMARY | ~2020-03-04 | XMS | Encounter Summary ---
Demographics + + + | Address | [address] | | | [place] [address] | + + + | Home Phone | | + + + | Preferred Language | Unknown | + + + | Marital Status | | + + + | Caodaism Affiliation | Unknown | + + + | Race | Unknown | + + + | Ethnic Group | Unknown | + + + Author + + + | Author | [facility] | | | and [place] | + + + | Organization | [facility] | | | and [place] | + + + | Address | Unknown | + + + | Phone | Unavailable | + + + Support + + + + + | Name | Relationship | Address | Phone | + + + + + | Venice Will | ECON | [place] | | | | | [address] | | + + + + + Care Team Providers + +------+ + | Care Board Certified Arts Therapist Name | Role | Phone | + [...] Description | +--------+--------+ + + + | 09/05/ | Refill | [facility] | Randy Figueroa, | Medication Refill | | 2018 | | CARDIOLOGY [address] | | | | | [place], | [place], | | | | | [place] [address] | [place] [address] | | | | | [phone] | [phone] | | | | | | | [...] [place] | | | | | | [address] | | | | | | | | +--------+ + + + + | 04/16/ | Office | Cardiology | Alin Anderson | | | 2019 | Visit | | MD [address] | | | | | | [address] | | | | | | [place] [address] | | | | | | [phone] | | | | | | | [...] [place] | | | | | | [address] | | | | | | | | +--------+ + + + + documented as of this encounter Visit Diagnoses Not on filedocumented in this encounter"
--- OUTSIDE RECORDS SUMMARY | ~2020-03-04 | XMS | Encounter Summary ---
Demographics + + + | Address | [address] | | | [place] [address] | + + + | Home Phone | | + + + | Preferred Language | Unknown | + + + | Marital Status | | + + + | Synagogue Affiliation | Unknown | + + + | Race | Unknown | + + + | Ethnic Group | Unknown | + + + Author + + + | Author | [facility] | | | and [place] | + + + | Organization | [facility] | | | and [place] | + + + | Address | Unknown | + + + | Phone | Unavailable | + + + Support + + + + + | Name | Relationship | Address | Phone | + + + + + | Venice Will | ECON | [place], [place] | | | | | [address] | | + + + + + Care Team Providers + +------+ + | Care Airport Control Operator Name | Role | Phone | [...] | | involving | [address] | [place] | | | | | [place] | [place] | [place] | | | | | coronary | [address] | [address] | | | | | artery of | Phone: | Phone: | | | | | [place] heart | [phone] | [phone] | | | | | without | Fax: | Fax: | | | | | angina | [phone] | [phone] | | | | | pectoris | | | +--------+ + + + + + Encounter Details +--------+---------+ + + + | Date | Type | Department | Care Team | Description | +--------+---------+ + + + | 11/09/ | Office | [facility] | Randy Figueroa, | Coronary artery | | 2019 | Visit | MED CTR CARDIAC | MD [address] | disease involving | | | | REHABILITATION [address] | [place], | [place] coronary | | | | [address] [place] | [place] [address] | artery of [place] | | | | [place] [address] | [phone] | heart without angina | | | | [phone] | | pectoris (Primary | | | [...] this encounter Progress Cheri Mchugh RRT - 11/09/2018 10:00 AM PST [facility] [address] [place] [address] Cardiac Rehab Date: 11/09/2018 Patient Information Patient Name: Bob Will Date of : 1955 Age: 63 y.o. Encounter Diagnoses Code Name Primary? I25.10 Coronary artery disease involving [place] coronary artery of [place] heart without angina pectoris Yes Number of Visits Approved: 34 kx Taken Medications Today? Yes Any Changes in Medications? No Any Problems to Report? No Denies any adverse symptoms during exercise. Ventricular paced rhythm without ectopy. Pre O2: 98%, SBP prior to exercise 108/64; during exercise 112/64. Compliant with medications and therapeutic lifestyle changes. Continue monitored exercise. Any abnormal vital signs or rhythm strips will be reported in progress note. Electronically signed by: Cheri Harvey RRT, 11/09/2018 11:49 Patient Name: Bob Will/: 1955/ ly signed by Cheri Harvey RRT at 11/09/2018 11:49 AM PSTdocumented in this en counter Plan of [...] | | | | | [place] [address] | | | | | | [phone] | | | | | | | [...] [place] | | | | | | [address] | | | | | | | | +--------+ + + + + documented as of this encounter Visit Diagnoses + + | Diagnosis | + + | Coronary artery disease involving [place] coronary artery of [place] heart without | | angina pectoris - Primary | + + documented in this encounter"
--- OUTSIDE RECORDS SUMMARY | ~2020-03-04 | XMS | Encounter Summary ---
Demographics + + + | Address | [address] | | | [place] [address] | + + + | Home Phone | | + + + | Preferred Language | Unknown | + + + | Marital Status | | + + + | Muslim Affiliation | Unknown | + + + | Race | Unknown | + + + | Ethnic Group | Unknown | + + + Author + + + | Author | [facility] | | | and [place] | + + + | Organization | [facility] | | | and [place] | + + + | Address | Unknown | + + + | Phone | Unavailable | + + + Support + + + + + | Name | Relationship | Address | Phone | + + + + + | Venice Will | ECON | [place], [place] | | | | | [address] | | + + + + + Care Team Providers + +------+ + | Care Heating Mechanic Name | Role | Phone | + +------+ + PCP | Unavailable | + +------+ + Reason for Visit +--------+--------+ + | Reason | Onset | Comments | | | Date | | +--------+--------+ + | Other | 10/04/ | | | | 2019 | | +--------+--------+ + Encounter Details +--------+ + + + + | Date | Type | Department | Care Team | Description | +--------+ + + + + | 10/04/ | Telephone | [facility] | Carolina Lindarisa, | Other | | 2018 | | CARDIOLOGY [address] | MD [address] [place] | | | | | [place], | [place], | | | | | [place] [address] | [place] [address] | | | | | [phone] | [phone] | | | | | | | [...] this encounter Miscellaneous Notes Telephone Encounter - Suzanne Cheng RN - 10/05/2018 2:16 PM PSTSpoke with patient, they needed to clarify dose for amiodarone ..........................................Suzanne Cheng RN on 10/05/18 at 14:18 elephone Encount er - Lilian Machado RN - 10/05/2018 7:28 AM PSTSpoke with patient's earlier in the day, she just wanted to clarify amiodarone dosage. This was done. Not sure if she had othe r questions. ...........................................Lilian Machado RN on 10/05/18 at 7 :28 elephone Encounter - Suzanne Cheng RN - 10/04/2018 5:08 PM PSTReceived voicemail message from patient' s , concerning amiodarone. Left message on voicemail to return call .................... ......................Suzanne Cheng RN on 10/04/18 at 17:08 documented in thi s encounter Plan of Treatment +--------+ + + + + | Date | Type | Specialty | Care Team | Description | +--------+ + + + + | 03/12/ | Office | Nephrology | Litzy, | | | 2019 | Visit | | [address] | | | | | | [address] | | | | | | [address] [place] | | | | | | [address] | | | | | | | | +--------+ + + + + | 04/16/ | Office | Cardiology | Alin Anderson | | | 2019 | Visit | | MD [address] | | | | | | [address] | | | | | | [place] [address] | | | | | | [phone] | | | | | | | [...] [place] | | | | | | [address] | | | | | | | | +--------+ + + + + documented as of this encounter Visit Diagnoses Not on filedocumented in this encounter"
--- OUTSIDE RECORDS SUMMARY | ~2020-03-04 | XMS | Encounter Summary ---
Demographics + + + | Address | [address] | | | [place] [address] | + + + | Home Phone | | + + + | Preferred Language | Unknown | + + + | Marital Status | | + + + | Mosque Affiliation | Unknown | + + + [...] [place], [place] | | | | | [address] | | + + + + + Care Team Providers + +------+ + | Care Metallurgy Teacher Name | Role | Phone | + [...] | | involving | [address] | [place] | | | | | [place] | [address] | [place] | | | | | coronary | [address] | [address] | | | | | artery of | Phone: | Phone: | | | | | [place] heart | [phone] | [phone] | | | | | without | Fax: | Fax: | | | | | angina | [phone] | [phone] | | | | | pectoris | | | +--------+ + + + + + Encounter Details +--------+---------+ + + + | Date | Type | Department | Care Team | Description | +--------+---------+ + + + | 11/09/ | Office | [facility] | Randy Figueora, | Coronary artery | | 2019 | Visit | MED CTR CARDIAC | MD [address] [place] | disease involving | | | | REHABILITATION [address] | [place], | [place] coronary | | | | [address] [place] | [place] [address] | artery of [place] | | | | [place] [address] | [phone] | heart without angina | | | | [phone] | | pectoris (Primary | | | [...] Mchugh RRT - 11/09/2018 10:00 AM PST [facility] [address] [place] [address] Cardiac Rehab Date: 11/09/2018 Patient Information Patient Name: Bob Will Date of : 1955 Age: 63 y.o. Encounter Diagnoses Code Name Primary? I25.10 Coronary artery disease involving [place] coronary artery of [place] heart without angina pectoris Yes Number of [...] | | | | | [place] [address] | | | | | | [phone] | | | | | | | [...] [place] | | | | | | [address] | | | | | | | | +--------+ + + + + documented as of this encounter Visit Diagnoses + + | Diagnosis | + + | Coronary artery disease involving [place] coronary artery of [place] heart without | | angina pectoris - Primary | + + documented in this encounter"
--- OUTSIDE RECORDS SUMMARY | ~2020-03-04 | XMS | Encounter Summary ---
Demographics + + + | Address | [address] | | | [place] [address] | + + + | Home Phone | | + + + | Preferred Language | Unknown | + + + | Marital Status | | + + + | Mormonism Affiliation | Unknown | + + + | Race | Unknown | + + + | Ethnic Group | Unknown | + + + Author + + + | Author | [facility] | | | and [place] | + + + | Organization | [facility] | | | and [place] | + + + | Address | Unknown | + + + | Phone | Unavailable | + + + Support + + + + + | Name | Relationship | Address | Phone | + + + + + | Venice Will | ECON | [place], [place] | | | | | [address] | | + + + + + Care Team Providers + +------+ + | Care Strategic Procurement Manager Name | Role | Phone | [...] + + | 12/05/ | Implant | [facility] [place] | Randy Figueroa, | Remote Device | | 2019 | Monitor | CARDIOLOGY [address] [place] | Interrogation | | | | [place], | [place], | (Primary Dx); GENERAL REPAIR MECHAN[place]-D | | | | [place] [address] | [place] [address] | (AICD) Medtr[employer] | | | | [phone] | [phone] | 10/16/17 [facility] [place]; | | | | | | Ischemic [...] + documented as of this encounter Procedure Randy Spangler MD - 12/05/2018 11:59 PM PDTAssociated Order(s): DEVICE INTERROGATION- R EMOTEProcedure(s): DEVICE INTERROGATION- REMOTEPre-Procedure Diagnose(s): Implantable defibr illator reprogramming/check; Biventricular ICD (implantable cardioverter-defibrillator) in hannah aldridge; Ischemic cardiomyopathyDate of Remote Interrogation: 10/19/18 Refer to [facility] documentation and remote PDF scanned into [facility] for remote interrogation re suljuan. Data collected by RONNY CHAPMAN RN Presenting rhythm: atrial sensed ventricular paced with rate at 53-57 beats. 0 mode switch episodes accounting for 0% of the time 0 atrial high rate episodes. 0 ventricular high rate episodes. <0.1 PVC singles/hour <0.1 PVC runs/hour Histogram good Battery longevity 9.1 years. Apparent normal and stable device function. Device interrogation due in office on 12/22/18 Patient notified. documented in this encounter Plan of Treatment +--------+ + + + + | Date | Type | Specialty | Care Team | Description | +--------+ + + + + | 03/12/ | [facility] | [facility] | | ADARSH [address] | | | | | | [address] [facility] | | | | | [...] | | | | | [place] [address] | | | | | | [phone] | | | | | | | [...] [place] | | | | | | [address] | | | | | | | [...] INTERROGATION- | e | 11:59 PM | Interrogation GENERAL REPAIR MECHANIC-D | procedure are in the | | REMOTE | | PDT | ([facility]) [employer]onic | results section. | | | | | 10/16/17 EULOGIO Darby | | | | | | Ischemic | | | | | | cardiomyopathy | | + +--------+ + + + documented in this encounter Results Device Interrogation - Remote (12/05/2018 11:59 PM PDT) + + + | Narrative | Performed At | + + + | Randy | DONNA | | MD [place] 11/05/2018 10:33Date of Remote Interrogation: | | | 10/19/18 Refer to [facility] documentation and remote PDF scanned into | | | [facility] for remote interrogation results. Data collected by RONNY Butt | | | ALFONSO CHAPMAN Presenting rhythm: atrial sensed ventricular paced with | | | rate at 53-57 beats. 0 mode switch episodes accounting for 0% of the | | | time0 atrial high rate episodes. 0 ventricular high rate episodes. | | | <0.1 PVC singles/hour <0.1 PVC runs/hour | | | Histogram good Battery longevity 9.1 years.Apparent | | | normal and stable device function.Device interrogation due in office | | | on 12/22/18Patient notified. | | |0 ventricular high rate episodes. | | |<0.1 PVC singles/hour | | |<0.1 PVC runs/hour | | |Histogram good Battery longevity 9.1 years. | | |Apparent normal and stable device function. | | |Device interrogation due in office on 12/22/18 | | |Patient notified. | | | | | | | | + + + + +---------+ + + | Performing | Address | City[facility] | Phone Number | | Organization | | | | + +---------+ + + | [facility] | | | | + +---------+ + + documented in this encounter Visit Diagnoses + + | Diagnosis | + + | Remote Device Interrogation - Primary Fitting and adjustment of automatic implantable | | cardiac defibrillator | + + | GENERAL REPAIR MECHANIC-D (AICD) [employer]onic 10/16/17 EULOGIO Darby | + + | Ischemic cardiomyopathy Other specified forms of chronic ischemic heart disease | + + documented in this encounter"
--- OUTSIDE RECORDS SUMMARY | ~2020-03-04 | XMS | Encounter Summary ---
Demographics + + + | Address | [address] | | | [place] [address] | + + + | Home Phone | | + + + | Preferred Language | Unknown | + + + | Marital Status | | + + + | Buddhist Affiliation | Unknown | + + + [...] [place], [place] | | | | | [address] | | + + + + + Care Team Providers + +------+ + | Care Registered Midwife Name | Role | Phone | + [...] | | involving | [address] | [place] | | | | | [place] | [place] | [place] | | | | | coronary | [address] | [phone] | | | | | artery of | Phone: | Phone: | | | | | [place] heart | [phone] | [phone] | | | | | without | Fax: | Fax: | | | | | angina | [phone] | [phone] | | | | | pectoris | | | +--------+ + + + + + Encounter Details +--------+---------+ + + + | Date | Type | Department | Care Team | Description | +--------+---------+ + + + | 11/30/ | Office | [facility] | Randy Figueroa, | Coronary artery | | 2019 | Visit | MED [facility] CARDIAC | MD [address] | disease involving | | | | [facility] | [place], | [place] coronary | | | | [address] [place] [place] | [place] [address] | artery of [place] | | | | [place] [address] | [phone] | heart without angina | | | | [phone] | | pectoris (Primary | | | [...] this encounter Progress Gael Ortega - 11/30/2018 10:00 AM PDT [facility] [address] [place] [address] Cardiac Rehab Date: 11/30/2018 Patient Information Patient Name: Bob Will Date of : 1955 Age: 63 y.o. Encounter Diagnoses Code Name Primary? I25.10 Coronary artery disease involving [place] coronary artery of [place] heart without angina pectoris Yes Z98.61 Post [...] ly signed by Gael Woo at 11/30/2018 2:09 PM PDTdocumented in this encounter Plan of Treatment +--------+ + + + + | Date | Type | Specialty | Care Team | Description | +--------+ + + + + | 03/12/ | Office | Nephrology | [place], | | | 2019 | Visit | | [address] | | | | | | [address] [place] | | | | | | [address] [place] | | | | | | [address] | | | | | | | | +--------+ + + + + | 04/16/ | Office | Cardiology | Alin Anderson | | | 2019 | Visit | | MD Cheryl Arreguin | | | | | | [address] | | | | | | [place] [address] | | | | | | [phone] | | | | | | | [...] [place] | | | | | | [address] | | | | | | | | +--------+ + + + + documented as of this encounter Visit Diagnoses + + | Diagnosis | + + | Coronary artery disease involving [place] coronary artery of [place] heart without | | angina pectoris - Primary | + + | Post PTCA Postsurgical percutaneous transluminal coronary angioplasty status | + + documented in this encounter"
--- OUTSIDE RECORDS SUMMARY | ~2020-03-04 | XMS | Encounter Summary ---
Demographics + + + | Address | [address] | | | [place] [address] | + + + | Home Phone | | + + + | Preferred Language | Unknown | + + + | Marital Status | | + + + | Church Affiliation | Unknown | + + + | Race | Unknown | + + + | Ethnic Group | Unknown | + + + Author + + + | Author | [facility] | | | and [place] | + [...] [place] | | | | | [address] | | + + + + + Care Team Providers + +------+ + | Care Profiling Machine Set Up Operator Name | Role | Phone | + +------+ + PCP | Unavailable | + +------+ + Reason for Visit + + + | Reason | Comments | + + + | Follow-up | | + + + | Coronary Artery | | | Disease | | + + + Encounter Details +--------+---------+ + + + | Date | Type | Department | Care Team | Description | +--------+---------+ + + + | 06/23/ | Office | [facility] | Jenny, | Coronary artery | | 2017 | Visit | CARDIOLOGY [address] | [address] | disease involving | | | | [place], | [place], | false [place] coronary | | | | [place] [address] | [place] [address] | artery of false pass | | | | [phone] | [phone] | heart without angina | | | | | | pectoris (Primary | | | | | | Dx); Ischemic | | | | | | cardiomyopathy; | | | | | | Acute anterior wall | | | | | | IA ([facility]) | +--------+---------+ + + + Social History [...] + + + | Blood Pressure | 110/62 | 06/23/2017 7:37 AM | | | | | PDT | | + + + + + | Pulse | 60 | 06/23/2017 7:37 AM | | | | | PDT | | + + + + + | Temperature | - | - | | + + + + + | Respiratory Rate | 16 | 06/23/2017 7:37 AM | | | | | PDT | | + + + + + | Oxygen Saturation | - | - | | + + + + + | Inhaled Oxygen | - | - | | | Concentration | | | | + + + + + | Weight | 91.4 kg (201 lb 8 | 06/23/2017 7:37 AM | | | | oz) | PDT | | + + + + + | Height | 177.8 cm (5' 10") | 06/23/2017 7:37 AM | | | | | PDT | | + + + + + | Body Mass Index | 28.91 | 06/23/2017 7:37 AM | | | | | PDT | | + + + + + documented in this encounter Patient Instructions Patient Instructions Hansa Alvarado ARNP - 06/23/2017 7:45 AM PDT1. Make sure you are taking your Plavix (clopidogrel) every day 2. check blood pressure and pulse twice daily for two weeks and return the log to our offic e. If blood pressure is good, then we may increase medicine to make heart stronger 3. Continue exercise 3. Follow up in 2-3 months documented in this encounter Progress Notes Hansa Alvarado ARNP - 06/23/2017 7:45 AM PDTFormatting of this note might be differen t from the original. PATIENT NAME: Bob Will : 1955: AGE: 61 y.o. PRIMARY CARE: Young Haque DO OUTPATIENT FOLLOW UP VISIT Date of Service: 06/23/2017 HISTORY OF PRESENT ILLNESS: Bob Will is a 61 y.o. male with a history of coronary artery disease post recent anterior wall IA, post PTCA and stents of the left main, LAD and LCx on 03/15/17, cardiac shoc k, left atrial appendage thrombus. He is being seen today for CAD and cardiomyopathy. He was last seen 05/26/2017 at which time he has been without the LifeVest and repeat echoca rdiogram. Since that time, his he has gone back to work. He is feeling "great". He has cont inue exercising. He has had a good energy level. He tries to stay active. He enjoys workFlaconi in his spare time. He has not had any chest pain or discomfort at rest or with exertion. He has not noticed shortness of breath. He has not had any lightheadedness or dizziness. He has not noticed palpitations. He has not had leg swelling. He sleeps on 1 pillow at [facility] without any shortness of breath. His blood pressure has been between 100-120's/60-69.. MEDICAL, SURGICAL, AND PERSONAL HISTORY Past Medical, Surgical, Family, and Social History are reviewed in EPIC. CURRENT PROBLEMS Patient Active Problem List Diagnosis Acute anterior wall IA CAD (coronary artery disease) Ischemic cardiomyopathy CURRENT MEDICATIONS Current Outpatient Prescriptions Medication Sig Dispense Refill aspirin 81 MG tablet Take by mouth Daily. atorvaSTATin (LIPITOR) 40 mg tablet Take by mouth Daily. carvedilol (COREG) 3.125 mg tablet Take 1 tablet by mouth 2 times daily (with breakfast & dinner). 60 tablet 3 Cholecalciferol (VITAMIN D PO) Take 500 mg by mouth Once a week. clopidogrel (PLAVIX) 75 mg tablet Take 1 tablet by mouth Daily. (Patient not taking: Re ported on 06/23/2017) 90 tablet 3 GABAPENTIN PO Take 2 capsules by mouth 3 times daily. lisinopril (PRINIVIL, ZESTRIL) 5 mg tablet Take 2 tablets by mouth Daily. 180 tablet 3 metFORMIN (GLUCOPHAGE) 500 mg tablet Take by mouth 2 times daily. raNITIdine (ZANTAC) 300 MG tablet Take by mouth nightly. traMADol (ULTRAM) 50 mg tablet as needed. No current facility-administered medications for this visit. ALLERGIES No Known Allergies ROS Review of Systems Constitutional: Negative for malaise/fatigue. Respiratory: Negative for shortness of breath. Cardiovascular: Positive for leg swelling (left leg). Negative for chest pain and palpitati ons. Neurological: Negative for dizziness and weakness. Lightheaded = No OBJECTIVE: PHYSICAL EXAM BP 110/62 | Pulse 60 | Resp 16 | Ht 1.778 m (5' 10") | Wt 91.4 kg (201 lb 8 oz) | BMI 28.91 kg/m Physical Exam Constitutional: He is oriented to person, place, and time. He appears well-developed and we ll-nourished. No distress. Male individual arrives alone, without acute distress. HENT: Head: Normocephalic. Mouth/Throat: Mucous membranes are not cyanotic. Eyes: Lids are normal. Neck: Normal carotid pulses, no hepatojugular reflux and no JVD present. Carotid bruit is n ot present. No tracheal deviation present. Cardiovascular: Normal rate, regular rhythm, S1 normal, S2 normal, normal heart sounds, int act distal pulses and normal pulses. PMI is not displaced. Exam reveals no gallop, no S3, no S4 and no friction rub. No murmur heard. Pulses: Carotid pulses are 2+ on the right side, and 2+ on the left side. Femoral pulses are 2+ on the right side, and 2+ on the left side. Dorsalis pedis pulses are 2+ on the right side, and 2+ on the left side. Posterior tibial pulses are 2+ on the right side, and 2+ on the left side. Pulmonary/Chest: Effort normal and breath sounds normal. No accessory muscle usage. No resp iratory distress. He has no wheezes. He has no rhonchi. He has no rales. Abdominal: Soft. Normal appearance, normal aorta and bowel sounds are normal. He exhibits n o abdominal bruit. There is no hepatosplenomegaly. There is no tenderness. Musculoskeletal: He exhibits no edema. Neurological: He is alert and oriented to person, place, and time. Gait normal. Skin: Skin is warm and dry. He is not diaphoretic. No cyanosis. No pallor. Nails show no cl ubbing. Psychiatric: He has a normal mood and affect. His mood appears not anxious. He does not exh ibit a depressed mood. ECG: I personally independently reviewed ECG tracing during this visit (interpreted and redd led by another provider): Results for orders placed or performed in visit on 05/04/17 ECG 12 lead Result Value Ref Range INTERPRETATION TEXT Sinus rhythm with occasional premature ventricular complexes Left axis deviation Anteroseptal infarct (cited on or before 04-MAY-2017) T wave abnormality, consider lateral ischemia Abnormal ECG When compared with ECG of 04-MAY-2017 15:19, (Unconfirmed) premature ventricular complexes are now present Confirmed by LAUREN CHESTER MD ([id number]) on 05/05/2017 6:03:03 AM LAB RESULTS reviewed during visit today primarily from [facility]: LIPID No results found for: CHOL, TRIG, HDL, LDL, CHOLHDL, LDLEX, HDLEX, TRIGEX, CHOLEX CHEMISTRY Lab Results Component Value Date GLUEX 145 (A) 03/15/2017 NAEX 136 03/15/2017 KEX 3.7 03/15/2017 CLEX 104 03/15/2017 CO2EX 25 03/15/2017 ASTEX 13 03/15/2017 ALTEX 24 03/15/2017 EGFREX 49 03/15/2017 CREEX 1.46 (A) 03/15/2017 HEMATOLOGY Lab Results Component Value Date WBCEX 9.1 03/15/2017 HGBEX 16.5 03/15/2017 HCTEX 46.8 03/15/2017 PLTEX 194 03/15/2017 I reviewed records from [facility] for office visit on 05/26/2017 w hich is summarized in the HPI. Above data and testing is reviewed this visit; testing below is historical data unless othe rwise specified. ASSESSMENT: 1. Coronary artery disease presented with acute anterior wall STEMI and cardiogenic shock a nd ischemic cardiomyopathy A. Angiography and stent 03/15/2017 shows successful PCI with placement of 3.0X23 stent in the distal LM and ostial LAD reducing a 100% stenotic lesion to 0% residual stenos is, successful PCI with placement of 2.5X18 stent in the ostial LCx reducing a 90% stenotic lesion to 0% resdual stenosis. Monse Ross MD. Patient was was complicated with dissectio n/thrombosis of left main, causing cardiogenic shock requiring IABP, pressor (dopamine, nore pinephrine). [facility] on divert. Patient wasn't transferred to [facility]. B. Echocardiogram 03/17/2017 shows LV ejection fraction is severely decreased, vi sually estimated left ventricular ejection fraction is 20 - 25%, left ventricular systolic t hickening is segmentally abnormal, mildly reduced RV systolic function. Normal RV size, no s ignificant valvular abnormalities seen, compared to the most recent exam dated, 03/15/2017, there is no significant changes C. At [facility], patient had another STEMI code 03/29, with anterior involvement on EKG with inferior reciprocal depressions--and patient started on heparin drip with full dose aspirin, then s/p repeat angiography without acute finding: "patent stent traversing the LM to LAD and patent stent in the proximal LCX,discrete thrombi seen in any vessel...overall improved flow compared to 03/15 acute angiogram." TTE 03/30 with previously seen wall motion a bnormalities and improved systolic function. Patient was started on ASA 81mg daily, clopidog rel 75mg po daily, atorvastatin 40mg po daily, and metoprolol succinate 25mg daily--which he will continue on discharge. Low-dose lisinopril and ISMN were added as well. Cardiology has arranged for him to follow up closely with a local microelectronics engineer in [place]. He wias dis chargeed with a LifeVest for VT/VF protection in the short term as he recovers (too soon for ICD consideration). D. Echocardiogram 03/30/2017 shows left ventricular cavity size is normal, vadim last estimated left ventricular ejection fraction is 30 - 35%, left ventricular systolic thic kening is segmentally abnormal, right ventricular size, thickness and function are normal, c ompared to the most recent exam dated, 03/19/17, the LVEF has improved slightly, segmental wall motion abnormalities remain.Left atrial appendage was noted and patient was started o n heparin, followed with warfarin. E. Echocardiogram 05/07/17 shows, Mild left atrial dilatation, Normal left vent ricular size. There is a segmental wall motion abnormality with thinning and severe hypokine sis of the entire anterior and anteroseptal region. Overall, left ventricular systolic funct ion is moderately decreased. LVEF is 35-40%, Grade 1 left ventricular diastolic dysfunction, Mild mitral valve agitation, Normal right-sided pressure, Normal IVC with normal respiratory collapse. F. Angiography and stent 03/15/2017 successful PCI with placement of 3.0X23 sten t in the distal LM and ostial LAD reducing a 100% stenotic lesion to 0% residual stenosis, s uccessful PCI with placement of 2.5X18 stent in the ostial LCx reducing a 90% stenotic lesio n to 0% resdual stenosis. G. Echocardiogram 06/04/17 shows Mild left atrial dilatation, Normal left ventri cular size. There is a mild hypokinesis of the anterior wall. Overall, left ventricular syst olic function is low-normal. LVEF is 50-55%, Normal valvular structure,Mild pulmonary hypert ension with a peak systolic pressure 40-45 mmHg,Normal IVC with normal respiratory collapse, When compared to echocardiography on 05/07/17, left ventricular systolic function is signific antly improved and now normalized. H. Today, patient is completely asymptomatic and has increase stamina. He denies any cardi ac symptoms. Patient is physically active doing exercises at home and walking. He is back t o walking with no angina or dyspnea. There is no palpitation dizziness or lightheadedness. There is no signs and symptoms of overt congestive heart failure. He is in a class I of [place] w [employer] Heart Association functional class. There is no fluid retention on physical examinat ion. 2. Toxic metabolic encephalopathy A. Problem completely resolved. 3. Left atrial appendage thrombus A. Noted on MARKY in the [place] during ECMO decannulation. Completedheparin gtt justus dge 03/29 to therapeutic warfarin. Not on warfarin any more, no evidence of thrombus in last echocardiogram 4. Normocytic anemia 5. Thrombocytosis A. Problem was resolved at [facility]. PLAN: 1. Make sure you are taking your Plavix (clopidogrel) every day 2. check blood pressure and pulse twice daily for two weeks and return the log to our offic e. If blood pressure is good, then we may increase medicine to make heart stronger 3. Continue exercise regularly 3. Follow up in 2-3 months Portions of this chart may have been created with [employer] voice recognition software. Occasi onal wrong-word or sound-alike substitutions may have occurred due to the inherent canseco itations of voice recognition software. Please read the chart carefully and recognize, using context, where these substitutions have occurred. documented in th is encounter Plan of Treatment +--------+ + + + + | Date | Type | Specialty | Care Team | Description | +--------+ + + + + | 03/12/ | Office | Nephrology | [place], | | | 2019 | Visit | | AD[address]SH [address] | | | | | | [facility] | | | | | | [address] | | | | | | [id number] | | | | | | | | +--------+ + + + + | 04/16/ | Office | Cardiology | Alin Anderson | | | 2019 | Visit | | MD Cheryl Arreguin | | | | | | [address] | | | | | | [place] [address] | | | | | | [phone] | | | | | | | | +--------+ + + + + | 04/16/ | Procedure | Cardiology | | | | 2019 | visit | | | | +--------+ + + + + | 04/25/ | Office | Cardiology | Rocio Pealr, | | | 2019 | Visit | | MD Cheryl URENA | | | | | | [place] | | | | | | [address] | | | | | | | | +--------+ + + + + documented as of this encounter Visit Diagnoses + + | Diagnosis | + + | Coronary artery disease involving false pass coronary artery of false pass heart without | | angina pectoris - Primary | + + | Ischemic cardiomyopathy Other specified forms of chronic ischemic heart disease | + + | Acute anterior wall IA (HCC) Acute myocardial infarction of other anterior wall, | | episode of care unspecified | + + documented in this encounter
--- OUTSIDE RECORDS SUMMARY | ~2020-03-04 | XMS | Encounter Summary ---
Demographics + + + | Address | [address] | | | [place] [address] | + + + | Home Phone | | + + + | Preferred Language | Unknown | + + + | Marital Status | | + + + | Samaritan Affiliation | Unknown | + + + | Race | Unknown | + + + | Ethnic Group | Unknown | + + + Author + + + | Author | [facility] | | | and [place] | + + + | Organization | [facility] | | | and [place] | + + + | Address | Unknown | + + + | Phone | Unavailable | + + + Support + + + + + | Name | Relationship | Address | Phone | + + + + + | Venice Will | ECON | [place], [place] | | | | | [address] | | + + + + + Care Team Providers + +------+ + | Care Safety And Security Manager Name | Role | Phone | [...] Closed | | Radiology | Diagnoses | | [facility] | | | | | | [place], | [address] | | | | | Cardiomyopat | Hansa, GUSSET STITCHER | [place], | | | | | hy, | [address] | [place] | | | | | unspecified | [place] | [address] | | | | | type (HCC) | [place], | Phone: | | | | | Coronary | [place] | [phone] | | | | | artery | [address] | Fax: | | | | | disease, | Phone: | [phone] | | | | | angina | [phone] | | | | | | presence | Fax: | | | | | | unspecified, | [phone] | | | | | | unspecified | | | | | | | vessel or | | | | | | | lesion type, | | | | | | | unspecified | | | | | | | whether | | | | | | | stock[place] or | | | | | | | transplanted | | | | | | | heart | | | | | | | Procedures | | | | | | | ECHO | | | | | | | Complete [place] | | | | | | | ECHO HEART | | | | | | | XTHORACIC,[place] | | | | | | | MPLETE W | | | | | | | DOPPLER [place] | | | | | | | ECHO HEART | | | | | | | XTHORACIC,[place] | | | | | | | MPLETE, W/O | | | | | | | DOPPLER | | | +--------+--------+ + + + + Reason for Visit +--------+--------+ + | Reason | Onset | Comments | | | Date | | +--------+--------+ + | Other | 05/26/ | 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 | | | 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 Form and letter signed by Dr Raul souza, faxed to Marina at [phone] ...........................................Lilian fajardo RN on 06/05/17 at 10:57 elephone Encounter - Lilian Machado RN - 05/26/2017 10:44 AM PDTSpoke with Adriana at [facility], DOT rules are federal so the details we have for clearance are the guideline that we angus astudillo use. Hansa was advised. 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 This is arranged for 06/04 @ 8am. Wi ll deal with the work paperwork after the echo is complete. Ron and his are aware .. .........................................Lilian Machado RN on 05/26/17 at 10:47 documented in this encounter Plan of Treatment +--------+ + + + + | Date | Type | Specialty | Care Team | Description | +--------+ + + + + | 03/12/ | Office | Nephrology | Litzy, | | | 2019 | Visit | | ADARSH [address] | | | | | | [address] | | | | | | [address] | | | | | | [address] | | | | | | | | +--------+ + + + + | 04/16/ | Office | Cardiology | Alin Anderson | | | 2019 | Visit | | MD [address] | | | | | | [address] | | | | | | [facility] [place] [address] | | | | | | [phone] | | | | | | | | +--------+ + + + + | 04/16/ | Procedure | Cardiology | | | | 2019 | visit | | | | +--------+ + + + + | 04/25/ | Office | Cardiology | Rocio Pearl, | | | 2019 | Visit | | [address] | | | | | | [place] | | | | | | [address] | | | | | | | | +--------+ + + + + documented as of this encounter Results ECHO Complete (06/04/2017 8:32 AM PDT) + +-------+ + + + | Component | Value | Ref Range | Performed | Pathologist | | | | | At | Signature | + +-------+ + + + | LVEF-TTE | 53 | | [facility] | | | TRANSTHORAC | | | | | | IC ECHO | | | | | + +-------+ + + + + + | Specimen | + + | | + + + + --+ | Narrative | Performed At | + + --+ | Transthoracic | [facility] | | Echocardiography Report (TTE) Demographics Patient Name MIKE | | | RON Room Number J Patient Number | | | [id number] Date of Study 06/04/2017 Visit Number | | | [id number] Referring | | | Physician THERESE SY Number Date of 1955 | | | 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 Procedure dateDate: | | | 06/04/2017Start: 07:51 AM Technical Quality: Good visualizationStudy | | | Location: Echo LabIndications: CARDIOMYOPATHY 425.4/ I42.9 and cAD | | | [place] CORONARY OJOCOR852.01/ I25.10.Patient Status: RoutineHeight: 70 | | | inchesWeight: 192 poundsBSA: 2.05 m^2BMI: 27.55 kg/m^2Rhythm: Normal | | | Sinus RhythmHR: 80 bpm ConclusionsSummary1. Mild left atrial | | | dilatation.2. Normal left ventricular size. There is a mild | | | hypokinesis of the anteriorwall. Overall, left ventricular systolic | | | function is low-normal. LVEF is50-55%.3. Normal valvular structure.4. | | | Mild pulmonary hypertension with a peak systolic pressure 40-45 | | | mmHg.5. Normal IVC with normal respiratory collapse.6. When compared | | | to echocardiography on 05/07/17, left ventricular systolicfunction is | | | significantly improved and now normalized. | | | Signature | | | | | | AM | | | -------- FindingsMitral ValveMitral valve appears structurally and | | | functionally normal.Mild mitral regurgitation.Aortic ValveAortic valve | | | is trileaflet without significant stenosis or regurgitation.Tricuspid | | | ValveMild tricuspid regurgitation suggestive of a mildly elevated | | | right systolicpressure of 40-45 mmHg.Pulmonic ValveStructurally normal | | | pulmonic valve without significant stenosis orregurgitation.Left | | | AtriumDilated left atrium.Left VentricleLeft ventricle is normal in | | | size and function. Ejection fraction isestimated at 50-55 %.Mild | | | hypokinesis of the anterior wall.Right AtriumNormal right atrium.Right | | | VentricleNormal right ventricular size.Right ventricle global | | | systolic function is normal.TAPSE = 2.1 cm.Pericardial EffusionNo | | | evidence of any pericardial effusion.Pleural EffusionNo evident | | | pleural effusion identified.MiscellaneousNormal aortic root.The IVC | | | appears normal.IVC respiratory change in dimension > 50%. Structures | | | Left Atrium EF Vazxdymvm26% Left Ventricle Diastolic | | | Dimension: 5.6 cm Septum Diastolic: 0.8 cm PW Diastolic: 0.9 cm EF | | | Calculated: 53% | | |3. Normal valvular structure. | | |4. Mild pulmonary hypertension with a peak systolic pressure 40-45 mmHg. | | |5. Normal IVC with normal respiratory collapse. | | |6. When compared to echocardiography on 05/07/17, left ventricular systolic | | |function is significantly improved and now normalized. | | | | | |Signature | | | | | | Electronically signed by LAUREN CHESTER MD(Interpreting physician) on | | | 06/04/2017 09:17 AM | | | | | | | | |Findings | | |Mitral Valve | | |Mitral valve appears structurally and functionally normal. | | |Mild mitral regurgitation. | | |Aortic Valve | | |Aortic valve is trileaflet without significant stenosis or regurgitation. | | |Tricuspid Valve | | |Mild tricuspid regurgitation suggestive of a mildly elevated right systolic | | |pressure of 40-45 mmHg. | | |Pulmonic Valve | | |Structurally normal pulmonic valve without significant stenosis or | | |regurgitation. | | |Left Atrium | | |Dilated left atrium. | | |Left Ventricle | | |Left ventricle is normal in size and function. Ejection fraction is | | |estimated at 50-55 %. | | |Mild hypokinesis of the anterior wall. | | |Right Atrium | | |Normal right atrium. | | |Right Ventricle | | |Normal right ventricular size. | | |Right ventricle global systolic function is normal. | | |TAPSE = 2.1 cm. | | |Pericardial Effusion | | |No evidence of any pericardial effusion. | | |Pleural Effusion | | |No evident pleural effusion identified. | | |Miscellaneous | | |Normal aortic root. | | |The IVC appears normal. | | |IVC respiratory change in dimension > 50%. 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 Mild left atrial dilatation.2. Normal left ventricular size. | | There is a mild hypokinesis of the anteriorwall. Overall, left ventricular systolic | | function is low-normal. LVEF is50-55%.3. Normal valvular structure.4. Mild pulmonary | | hypertension with a peak systolic pressure 40-45 mmHg.5. Normal IVC with normal | | respiratory collapse.6. When compared to echocardiography on 05/07/17, left ventricular | | systolicfunction is significantly improved and now | | normalized.Signature | | -------- Electronically signed by LAUREN CHESTER MD(Interpreting physician) on | | 06/04/2017 09:17 | | AM FindingsMi | | tral ValveMitral valve appears structurally and functionally normal.Mild mitral | | regurgitation.Aortic ValveAortic valve is trileaflet without significant stenosis or | | regurgitation.Tricuspid ValveMild tricuspid regurgitation suggestive of a mildly | | elevated right systolicpressure of 40-45 mmHg.Pulmonic ValveStructurally normal pulmonic | | valve without significant stenosis orregurgitation.Left AtriumDilated left atrium.Left | | VentricleLeft ventricle is normal in size and function. Ejection fraction isestimated at | | 50-55 %.Mild hypokinesis of the anterior wall.Right AtriumNormal right atrium.Right | | VentricleNormal right ventricular size.Right ventricle global systolic function is | | normal.TAPSE = 2.1 cm.Pericardial EffusionNo evidence of any pericardial | | effusion.Pleural EffusionNo evident pleural effusion identified.MiscellaneousNormal | | aortic root.The IVC appears normal.IVC respiratory change in dimension > 50%.Structures | | Left Atrium EF Hsvhmmhdh00% Left Ventricle Diastolic Dimension: 5.6 cm Septum | | Diastolic: 0.8 cm PW Diastolic: 0.9 cm EF Calculated: 53% | |414.01/ I25.10. | |Patient Status: Routine | |Height: 70 inchesWeight: 192 poundsBSA: 2.05 m^2BMI: 27.55 kg/m^2 | |Rhythm: Normal Sinus RhythmHR: 80 bpm | | | |Conclusions | |Summary | |1. Mild left atrial dilatation. | |2. Normal left ventricular size. There is a mild hypokinesis of the anterior | |wall. Overall, left ventricular systolic function is low-normal. LVEF is | |50-55%. | |3. Normal valvular structure. | |4. Mild pulmonary hypertension with a peak systolic pressure 40-45 mmHg. | |5. Normal IVC with normal respiratory collapse. | |6. When compared to echocardiography on 05/07/17, left ventricular systolic | |function is significantly improved and now normalized. | | | |Signature | | | | Electronically signed by LAUREN CHESTER MD(Interpreting physician) on | | 06/04/2017 09:17 AM | | | | | |Findings | |Mitral Valve | |Mitral valve appears structurally and functionally normal. | |Mild mitral regurgitation. | |Aortic Valve | |Aortic valve is trileaflet without significant stenosis or regurgitation. | |Tricuspid Valve | |Mild tricuspid regurgitation suggestive of a mildly elevated right systolic | |pressure of 40-45 mmHg. | |Pulmonic Valve | |Structurally normal pulmonic valve without significant stenosis or | |regurgitation. | |Left Atrium | |Dilated left atrium. | |Left Ventricle | |Left ventricle is normal in size and function. Ejection fraction is | |estimated at 50-55 %. | |Mild hypokinesis of the anterior wall. | |Right Atrium | |Normal right atrium. | |Right Ventricle | |Normal right ventricular size. | |Right ventricle global systolic function is normal. | |TAPSE = 2.1 cm. | |Pericardial Effusion | |No evidence of any pericardial effusion. | |Pleural Effusion | |No evident pleural effusion identified. | |Miscellaneous | |Normal aortic root. | |The IVC appears normal. | |IVC respiratory change in dimension > 50%. | | | |Structures | | | | Left Atrium | | | | EF Popcyjllt29% | | | | Left Ventricle | | | | Diastolic Dimension: 5.6 cm | | Septum Diastolic: 0.8 cm | | PW Diastolic: 0.9 cm | | EF Calculated: 53% | + + + +---------+ + + | Performing | Address | City/State/Zipcode | Phone Number | | Organization | | | | + +---------+ + + | [facility] | | | | + +---------+ + + documented in this encounter Visit Diagnoses + + | Diagnosis | + + | Cardiomyopathy, unspecified type (HCC) - Primary | + + | Coronary artery disease, angina presence unspecified, unspecified vessel or lesion | | type, unspecified whether [place] or transplanted heart | + + documented in this encounter"
--- OUTSIDE RECORDS SUMMARY | ~2020-03-04 | XMS | Encounter Summary ---
Demographics + + + | Address | [address] | | | [place] [address] | + + + | Home Phone | | + + + | Preferred Language | Unknown | + + + | Marital Status | | + + + | Oriental Orthodox Affiliation | Unknown | + + + | Race | Unknown | + + + | Ethnic Group | Unknown | + + + Author + + + | Author | [facility] | | | and [place] | + + + | Organization | [facility] | | | and [place] | + + + | Address | Unknown | + + + | Phone | Unavailable | + + + Support + + + + + | Name | Relationship | Address | Phone | + + + + + | Venice Will | ECON | [place], [place] | | | | | [address] | | + + + + + Care Team Providers + +------+ + | Care Reading Teacher Name | Role | Phone | + +------+ + PCP | Unavailable | + +------+ + Reason for Visit +--------+--------+ + | Reason | Onset | Comments | | | Date | | +--------+--------+ + | Other | 11/10/ | | | | 2018 | | +--------+--------+ + Encounter Details +--------+ + + + + | Date | Type | Department | Care Team | Description | +--------+ + + + + | 11/10/ | Telephone | [facility] | Jenny, | Other | | 2018 | | CARDIOLOGY [address] | Hansa 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 ...........................................RONNY LOW RN on 11/10/17 at 10:17 elephone Encounter - Hansa Alvarado ARNP - 11/10/2017 10:05 AM PSTContinue with the same medication regime n Electronically signed by: ADARSH Stevens 11/10/2017 10:06 eleLyndsay Lara CMA - 11/10/2017 8:14 AM PST Next Visit: 12/01/17 Blood pressure log received from patient as follows: Medication Change: no med changes Date BP AM Pulse AM BP PM Pulse PM 10/19/17 120/78 77 10/20/17 122/78 78 108/66 80 10/21/17 110/63 84 105/65 77 10/22/17 105/70 81 10/23/17 110/70 80 105/65 82 10/24/17 105/75 75 110/75 80 10/25/17 110/75 77 105/70 80 10/26/17 10/27/17 102/64 75 118/74 80 10/28/17 116/75 75 114/72 73 10/29/17 116/75 76 110/75 75 10/30/17 110/75 77 110/75 76 10/30/17 103/66 76 110/76 77 11/01/17 118/72 73 118/72 75 Additional Comments: no comments were made documented in this enc ounter Plan of Treatment +--------+ + + + + | Date | Type | Specialty | Care Team | Description | +--------+ + + + + | 03/12/ | Office | Nephrology | Litzy, | | | 2019 | Visit | | ADARSH [address] | | | | | | [address] [facility] | | | | | | [address] [place] | | | | | | [address] | | | | | | | | +--------+ + + + + | 04/16/ | Office | Cardiology | Alin Anderson | | | 2019 | Visit | | MD [address] | | | | | | [address] | | | | | | [place] [address] | | | | | | [phone] | | | | | | | [...] [place] | | | | | | [address] | | | | | | | | +--------+ + + + + documented as of this encounter Visit Diagnoses Not on filedocumented in this encounter"
--- OUTSIDE RECORDS SUMMARY | ~2020-03-04 | XMS | Encounter Summary ---
Demographics + + + | Address | [address] | | | [place] [address] | + + + | Home Phone | | + + + | Preferred Language | Unknown | + + + | Marital Status | | + + + | Buddhist Affiliation | Unknown | + + + | Race | Unknown | + + + | Ethnic Group | Unknown | + + + Author + + + | Author | [facility] | | | and [place] | + + + | Organization | [facility] | | | and [place] | + + + | Address | Unknown | + + + | Phone | Unavailable | + + + Support + + + + + | Name | Relationship | Address | Phone | + + + + + | Venice Will | ECON | [place] | | | | | [address] | | + + + + + Care Team Providers + +------+ + | Care Carton Catcher Name | Role | Phone | + [...] | 12/08/ | Refill | [facility] | Jenny, | Medication Refill | | 2020 | | CARDIOLOGY [address] | ADARSH [address] | | | | | [place], | [place], | | | | | [place] [address] | [place] [address] | | | | | [phone] | [phone] | | | | | | | [...] [place] | | | | | | [address] | | | | | | | | +--------+ + + + + | 04/16/ | Office | Cardiology | Alin Anderson | | | 2019 | Visit | | MD [address] | | | | | | [address] | | | | | | [place] [address] | | | | | | [phone] | | | | | | | [...] [place] | | | | | | [address] | | | | | | | | +--------+ + + + + documented as of this encounter Visit Diagnoses Not on filedocumented in this encounter"
--- OUTSIDE RECORDS SUMMARY | ~2020-03-04 | XMS | Encounter Summary ---
Demographics + + + | Address | [address] | | | [place] [address] | + + + | Home Phone | | + + + | Preferred Language | Unknown | + + + | Marital Status | | + + + | Episcopalian Affiliation | NRP | + + + | Race | White | + + + | Ethnic Group | Not or | + + + Author + + + | Author | [facility] | + + + | Organization | [facility] | + + + | Address | Unknown | + + + | Phone | Unavailable | + + + Support + + + + + | Name | Relationship | Address | Phone | + + + + + | Venice Will | ECON | [address] | | | | | [place] [address] | | + + + + + Care Team Providers + +------+ + | Care Fancy Wire Drawer Name | Role | Phone | + [...] 03/19/ | Anesthesia | 6A Intra Op [address] | Pierre Beal MD | | | 2017 | Event | [address] [place] | Marcela Wiggins, | | | | | [facility] | [address] | | | | | Hospital Admitting | [address] | | | | | Desk Located on the | [place], [place] | | | | | 9 floor | [address] | | | | | [place], [place] | [phone] | | | | | [address] | | | +--------+ + + + + Anesthesia Record + + + + + | Procedure Name | Responsible | Anesthesia Start | Anesthesia Stop Time | | | Anesthesiologist | Time | | + + + + + | DECANNULATION (N/A | Pierre Beal MD | 03/19/17 0949 | 03/19/17 1306 | | Chest) | | | | + + [...] +----+---+ + + | | 1 | Timeout | | | | 1 | | [...] | [place] to | Patient transported to [facility] ICU with Art Line, 5 Lead EKG, [...] eral | Antecubital; 20 g; 03/24/17; | Monalisa Mendoza | Kayla Garcia, | | IV | [...] Temp-probe Alexys; 16 Fr.; 10 mL; | Estebanai Irishon | Monique Graham RN | | Cathet | 03/26/17; 0530; Per order | ALFONSO [...] PHENYLEPHrine 100 mcg/mL IV | Given | 07/13/20 | 100 mcg | | | | syringe INTRAPROCEDURE PRN, | | 17 12:01 | | | | | Starting [facility] 03/19/17 at 1201, | | PM PDT | | | | | Until [facility] 03/19/17 at 1244 | | | | | | + +-------+ +---------+---+---+ +---+---+ | | | +---+---+ + +---------+ + +--------+---+ | propofol (DIPRIVAN) injection | New Bag | 03/19/20 | 30 | 20.34 | | | INTRAPROCEDURE CONTINUOUS PRN, | | 17 9:26 | mcg/kg/m | mL/hr | | | Starting [facility] 03/19/17 at 0926, | | AM PDT | in | | | | Until [facility] 03/19/17 at 1244 | | | | [...]
--- OUTSIDE RECORDS SUMMARY | ~2020-03-04 | XMS | Encounter Summary ---
Demographics + + + | Address | [address] | | | [place] [address] | + + + | Home Phone | | + + + | Preferred Language | Unknown | + + + | Marital Status | | + + + | Taoist Affiliation | Unknown | + + + | Race | Unknown | + + + | Ethnic Group | Unknown | + + + Author + + + | Author | [facility] | | | and [place] | + + + | Organization | [facility] | | | and [place] | + + + | Address | Unknown | + + + | Phone | Unavailable | + + + Support + + + + + | Name | Relationship | Address | Phone | + + + + + | [place] | [place] | [place] | | | | | [address] | | + + + + + Care Team Providers + +------+ + | Care Certified Pharmacist Assistant Name | Role | Phone | + +------+ + | Amy Olivares MD | PCP | | + +------+ + Reason for Visit + + + | Reason | Comments | + + + | Device Check | billed | | (Remote) | | + + + Encounter Details +--------+ + + + + | Date | Type | Department | Care Team | Description | +--------+ + + + + | 06/06/ | Implant | [facility] | [place], | Implantable | | 2019 | Monitor | CARDIOLOGY [address] | defibrillator | | | | [place], | [place], | reprogramming/check | | | | [place] [address] | [place] [address] | (Primary Dx); | | | | [phone] | [phone] | Biventricular ICD | | | | | | (implantable | | | | | | cardioverter-defibri | | | | | | llator) in place; | | | | | | Ischemic [...] encounter Procedure Notes Randy Figueroa MD - 06/06/2019 11:59 PM PDTAssociated Order(s): DEVICE INTERROGATION- R EMOTEProcedure(s): DEVICE INTERROGATION- REMOTEPre-Procedure Diagnose(s): Implantable defibr illator reprogramming/check; Biventricular ICD (implantable cardioverter-defibrillator) in p lace; Ischemic cardiomyopathyDate of Remote Interrogation: 04/19/19 Refer to [facility] documentation and remote PDF scanned into [employer] for remote interrogation re sults. Data collected by RONNY CHAPMAN RN Presenting rhythm: atrial sensed ventricular paced with rate at 66-67 beats. 0 mode switch episodes accounting for 0% of the time. No episodes. <0.1PVC singles/hour <0.1 PVC runs/hour Histogram good Battery longevity 8.6 years. Apparent normal and stable device function. Device interrogation due in office in 05/31/19 Patient notified. documented in this encounter Plan of Treatment +--------+ + + + + | Date | Type | Specialty | Care Team | Description | +--------+ + + + + | 03/12/ | Office | Nephrology | [place], | | | 2019 | Visit | | ADARSH [address] | | | | | | [facility] | | | | | | [address] | | | | | | [phone] | | | | | | | | +--------+ + + + + | 04/16/ | Office | Cardiology | Alin Anderson | | | 2019 | Visit | | MD Cheryl Arreguin | | | | | | [address] | | | | | | [place] [address] | | | | | | [phone] | | | | | | | [...] [place] | | | | | | [address] | | | | | | | | +--------+ + + + + documented as of this encounter Procedures + +--------+ + + + | Procedure Name | Priori | Date/Time | Associated Diagnosis | Comments | | | ty | | | | + +--------+ + + + | DEVICE | Routin | 06/06/2019 | Implantable | Results for this | | INTERROGATION- | e | 11:59 PM | defibrillator | procedure are in the | | REMOTE | | PDT | reprogramming/check | results section. | | | | | Biventricular ICD | | | | | | (implantable | | | | | | cardioverter-defibri | | | | | | llator) in place | | | | | | Ischemic | | | | | | cardiomyopathy | | + +--------+ + + + documented in this encounter Results Device Interrogation - Remote (06/06/2019 11:59 PM PDT) + + + | Narrative | Performed At | + + + | Randy | [facility] | | MD [place] 04/20/2019 14:36Date of Remote Interrogation: | | | 04/19/19 Refer to [facility] documentation and remote PDF scanned into | | | [facility] for remote interrogation results. Data collected by RONNY Butt | | | ALFONSO CHAPMAN Presenting rhythm: atrial sensed ventricular paced with | | | rate at 66-67 beats. 0 mode switch episodes accounting for 0% of the | | | time.No episodes. <0.1PVC singles/hour<0.1 PVC runs/hour | | | Histogram good Battery longevity 8.6 years.Apparent | | | normal and stable device function.Device interrogation due in office | | | in 05/31/19Patient notified. | | |No episodes. | | |<0.1PVC singles/hour | | |<0.1 PVC runs/hour | | |Histogram good Battery longevity 8.6 years. | | |Apparent normal and stable device function. | | |Device interrogation due in office in 05/31/19 | | |Patient notified. | | | [...] implantable cardiac defibrillator | + + | Biventricular ICD (implantable cardioverter-defibrillator) in place | + + | Ischemic cardiomyopathy Other specified forms of chronic ischemic heart disease | + + documented in this encounter"
--- OUTSIDE RECORDS SUMMARY | ~2020-03-04 | XMS | Encounter Summary ---
Demographics + + + | Address | [address] | | | [place] [address] | + + + | Home Phone | | + + + | Preferred Language | Unknown | + + + | Marital Status | | + + + | Holiness Affiliation | Unknown | + + + | Race | Unknown | + + + | Ethnic Group | Unknown | + + + Author + + + | Author | [facility] | | | and [place] | + + + | Organization | [facility] | | | and [place] | + + + | Address | Unknown | + + + | Phone | Unavailable | + + + Support + + + + + | Name | Relationship | Address | Phone | + + + + + | [place] Will | ECON | [place], [place] | | | | | [address] | | + + + + + Care Team Providers + +------+ + | Care Fermenter Champagne Name | Role | Phone | + [...] | | | | | Ischemic | Jenny, | [address] | | | | | cardiomyopat | Hansa, TECHNICAL SUPPORT AGENT | [place], | | | | | hy | [address] | [place] | | | | | Procedures | [address] | [address] | | | | | ECHO | [place], | Phone: | | | | | Complete [place] | [place] | [phone] | | | | | ECHO HEART | [address] | Fax: | | | | | [place] | Phone: | [phone] | | | | | [address] | [phone] | | | | | | DOPPLER [place] | Fax: | | | | | | ECHO HEART | [phone] | | | | | | [place] | | | | | | | MPLETE, W/O | | | | | | | DOPPLER | | | +--------+--------+ + + + + Reason for Visit + + + | Reason | Comments | + + + | Follow-up | | + + + | Carotid Artery | | | Disease | | + + + | Cardiomyopathy | | + + + Encounter Details +--------+---------+ + + + | Date | Type | Department | Care Team | Description | +--------+---------+ + + + | 09/02/ | Office | [facility] | Jenny, | Ischemic | | 2017 | Visit | CARDIOLOGY [address] | [address] | cardiomyopathy | | | | [address] [place], | [place], | (Primary Dx); | | | | [place] [address] | [place] [address] | Coronary artery | | | | [phone] | [phone] | disease involving | | | | | | [place] coronary | | | | | | artery of [place] | | | | | | heart without angina | | | | | | pectoris; Acute | | | | | | anterior wall HI | | | | | | (HCC) [...] + + + | Blood Pressure | 116/62 | 09/02/2017 7:56 AM | | | | | PST | | + + + + + | Pulse | 72 | 09/02/2017 7:56 AM | | | | | PST | | + + + + + | Temperature | - | - | | + + + + + | Respiratory Rate | 16 | 09/02/2017 7:56 AM | | | | | PST | | + + + + + | Oxygen Saturation | - | - | | + + + + + | Inhaled Oxygen | - | - | | | Concentration | | | | + + + + + | Weight | 93.9 kg (207 lb) | 09/02/2017 7:56 AM | | | | | PST | | + + + + + | Height | 177.8 cm (5' 10") | 09/02/2017 7:56 AM | | | | | PST | | + + + + + | Body Mass Index | 29.7 | 09/02/2017 7:56 AM | | | | | PST | | + + + + + documented in this encounter Patient Instructions Patient Instructions Hansa Alvarado ARNP - 09/02/2017 7:45 AM PST1. Increase Lisinopr il 5 mg in the morning and 10 mg in the evening 2. CMP and lipid in 2 weeks 3. check blood pressure and pulse twice daily for two weeks and return the log to our offic e. 4. Follow up in 3 months 8:4 0 AM PST documented in this encounter Progress Notes Hansa Alvarado ARNP - 09/02/2017 7:45 AM PSTFormatting of this note might be differen t from the original. PATIENT NAME: Bob Will : 1955: AGE: 61 y.o. PRIMARY CARE: Chato Matson MD OUTPATIENT FOLLOW UP VISIT Date of Service: 09/02/2017 HISTORY OF PRESENT ILLNESS: Bob Will is a 61 y.o. male with a history of coronary artery disease post recent anterior wall HI, post PTCA and stents of the left main, LAD and LCx on 03/15/17, cardiac shoc k, left atrial appendage thrombus. He was last seen 06/23/17 at which time he was told to make sure to take his Plavix (clopid ogrel) every day, check blood pressure and pulse twice daily for two weeks and return the lo g to our office. If blood pressure is good, then we may increase medicine to make heart stro nger, continue exercise regularly Since that time, he has been "feeling well". He has had a fair energy level. He has not b een very active. He enjoys visiting family in his spare time. He has not had any chest cristino n or discomfort at rest or with exertion. He has not noticed shortness of breath. He has not had any lightheadedness or dizziness. He has not noticed palpitations. He has not had leg swelling. He is able to sleep laying down at night without any symptoms of shortness of breath. He has had no cardiac complaints. MEDICAL, SURGICAL, AND PERSONAL HISTORY Past Medical, Surgical, Family, and Social History are reviewed in EPIC. CURRENT PROBLEMS Patient Active Problem List Diagnosis Acute anterior wall HI CAD (coronary artery disease) Ischemic cardiomyopathy CURRENT [...] tablet by mouth Daily. 90 tablet 3 GABAPENTIN PO Take 2 [...] of Systems Constitutional: Positive for malaise/fatigue. HENT: Negative for nosebleeds. Respiratory: Negative for cough and shortness of breath. Cardiovascular: Positive for chest pain, claudication and leg swelling. Negative for palpit ations. Musculoskeletal: Positive for myalgias (in the arms ). Neurological: Positive for tingling (in the legs) and weakness. Negative for dizziness, saúl mors and headaches. OBJECTIVE: PHYSICAL EXAM BP 116/62 | Pulse 72 | Resp 16 | Ht 1.778 m (5' 10") | Wt 93.9 kg (207 lb) | BMI 29.70 kg/m Physical Exam Constitutional: He is oriented [...] now present Confirmed by LAUREN CHESTER MD ([id number]) on 05/05/2017 6:03:03 AM LAB RESULTS reviewed during visit today primarily from [facility]: LIPID No results found for: CHOL, TRIG, [...] PLTEX 194 03/15/2017 I reviewed records from [facility] for office visit on 06/07/2017 w hich is summarized in the HPI. [...] a 90% stenotic lesion to 0% residual stenosis. Monse Ross MD. Patient was complicated with dissection/t hrombosis of left main, causing cardiogenic shock requiring IABP, pressor (dopamine, norepin ephrine). [facility] and [facility] were on divert. Patient wasn't transferred to [facility]. B. Echocardiogram 03/17/2017 shows LV ejection fraction is severely decreased, vi sually estimated left ventricular ejection fraction is 20 - 25%, left ventricular systolic t hickening is segmentally abnormal, mildly reduced RV systolic function. Normal RV size, no s ignificant valvular abnormalities seen, compared to the most recent exam dated, 03/15/2017, there is no significant changes C. At [facility], patient had another STEMI code 03/29, [...] to follow up closely with a local consular officer in [place]. He wias dis chargeed with a LifeVest for VT/VF protection in the short term as he recovers (too soon for ICD consideration). D. Echocardiogram 03/30/2017 shows left ventricular cavity size is normal, visua lly estimated left ventricular ejection fraction is 30 [...] physically active doing exercises at home and walking some limitati ons because of his knees. He is back to walking with no angina or dyspnea. There is no palp itation dizziness or lightheadedness. There is no signs and symptoms of overt congestive he art failure. He is in a class I of [place] [employer] functional class. Heart fail ure stage C. There is no fluid retention on physical examination. 2. Toxic metabolic encephalopathy A. Problem completely resolved. 3. Left atrial appendage thrombus A. Noted on MARKY in the [place] during ECMO decannulation. Completedheparin gtt justus dge 03/29 to therapeutic warfarin. Not on warfarin any more, no evidence of thrombus in last echocardiogram 4. Normocytic anemia 5. Thrombocytosis A. Problem was resolved at [facility]. 6. Positive screening for PAD PLAN: 1. Increase Lisinopril 5 mg in the morning and 10 mg in the evening 2. CMP and lipid in 2 weeks 3. check blood pressure and pulse twice daily for two weeks and return the log to our offic e. 4. Positive screening for PAD will do AN 5. Recheck echocardiogram in 3 months 6. Follow up in 3 months Portions of this chart may have been created with [employer] voice recognition software. Occasi onal wrong-word or [...] | | | | | [address] | | | | | | [address] | | | | | | [address] | | | | | | | | +--------+ + + + + | 04/16/ | Office | Cardiology | Alin Anderson | | | 2019 | Visit | | MD Cheryl Arreguin | | | | | | [address] | | | | | | [place] [address] | | | | | | [phone] | | | | | | | [...] [place] | | | | | | [address] | | | | | | | | +--------+ + + + + documented as of this encounter Results Lipid Panel (06/10/2018 11:28 AM PDT) + + + + + + | Component | Value | Ref Range | Performed | Pathologist | | | | | At | Signature | + + + + + + | Triglycerid | 211 (H) | 35 - 160 mg/dL | [facility] | | | es | | | [facility] | | | | | | [facility] | | | | | | [facility] - | | | | | | LABORATORY | | + + + + + + | Cholesterol | 94 (L) | 150 - 200 mg/dL | [facility] | | | | | | [facility] | | | | | | [facility] | | | | | | [facility] - | | | | | | LABORATORY | | + + + + + + | HDL | 26 (L)Comment: New | 28 - 83 mg/dL | [facility] | | | | HDL Reference Range as | | [facility] | | | | of May 17, 2015 | | MEDICAL | | | | Values may be 10-20% | | CENTER - | | | | lower with new, | | LABORATORY | | | | standardized method. | | | | + + + + + + | Chol/HDL | 3.6 | | [facility] | | | Ratio | | | [facility] | | | | | | [facility] - | | | | | | LABORATORY | | + + + + + + | LDL, | 26 | <=130 mg/dL | [facility] | | | Calculated | | | [facility] | | | | | | [facility]ICAL | | | | | | CENTER - | | | | | | LABORATORY | | + + + + + + + + | Specimen | + + | Blood | + + + + + + + | Performing | Address | City/State/Zipcode | Phone Number | | Organization | | | | + + + + + | [facility] | [address] | [place], [place] | [phone] | | [facility] | | [address] | | | - LABORATORY | | | | + + + + + VAS Segmental Pressures Legs (11/24/2017 3:55 PM PDT) + + | Specimen | + + | | + + + + + | Narrative | Performed At | + + + | VAS SEGMENTAL PRESSURES LEGS 11/24/2017 2:32 PM HISTORY: PAD. | [facility] | | COMPARISON: None. PROTOCOL: Blood pressure measurements of the | | | upper extremities and lower extremities were obtained with Doppler | | | probe and sphygmomanometer. FINDINGS: Right: (mmHg) Brachial: | | | 96 Dorsalis pedis: 110 Posterior tibial: 106 A/B ratio: 1.05 | | | Left: (mmHg, index) Brachial: 105 Dorsalis pedis: 86 Posterior | | | tibial: 98 A/B ratio: 0.91 IMPRESSION - Abnormal left ankle | | | brachial index of 0.91 consistent with single segment disease. | | | Reference: Greater than or equal to 0.95: Normal 0.5 through 0.95: | | | Single segment disease Less than 0.5: Multi segment disease | | | Dictated and Signed by: Alin Ramírez MD Electronically signed: | | | 11/24/2017 9:48 PM | | + + + + + | Procedure Note | + + | Sebastian, Rad Results In - 11/24/2017 9:51 PM PDT VAS SEGMENTAL PRESSURES LEGS 11/24/2017 | | 2:32 PM HISTORY: PAD.COMPARISON: None.PROTOCOL: Blood pressure measurements of the upper | | extremities and lowerextremities were obtained with Doppler probe and | | sphygmomanometer.FINDINGS:Right: (mmHg)Brachial: 96Dorsalis pedis: 110Posterior tibial: | | 106A/B ratio: 1.05Left: (mmHg, index)Brachial: 105Dorsalis pedis: 86Posterior tibial: | | 98A/B ratio: 0.91IMPRESSION -Abnormal left ankle brachial index of 0.91 consistent with | | single segmentdisease.Reference:Greater than or equal to 0.95: Normal0.5 through 0.95: | | Single segment diseaseLess than 0.5: Multi segment disease Dictated and Signed by: | | Alin Ramírez MD Electronically signed: 11/24/2017 9:48 PM | |FINDINGS: | | | |Right: (mmHg) | |Brachial: 96 | |Dorsalis pedis: 110 | |Posterior tibial: 106 | |A/B ratio: 1.05 | | | |Left: (mmHg, index) | |Brachial: 105 | |Dorsalis pedis: 86 | |Posterior tibial: 98 | |A/B ratio: 0.91 | | | |IMPRESSION - | |Abnormal left ankle brachial index of 0.91 consistent with single segment | |disease. | | | |Reference: | |Greater than or equal to 0.95: Normal | |0.5 through 0.95: Single segment disease | |Less than 0.5: Multi segment disease | | | |Dictated and Signed by: Alin Ramírez MD | | Electronically signed: 11/24/2017 9:48 PM | + + + +---------+ + + | Performing | Address | City/State/Zipcode | Phone Number | | Organization | | | | + +---------+ + + | [facility] | | | | + +---------+ + + ECHO Complete (11/24/2017 2:04 PM PDT) + +-------+ + + + | Component | Value | Ref Range | Performed | Pathologist | | | | | At | Signature | + +-------+ + + + | LVEF-TTE | 35 | | [facility] | | | TRANSTHORAC | | | | | | IC ECHO | | | | | + +-------+ + + + + + | Specimen | + + | | + + + +------ ---------+ | Narrative | Perfo rmed At | + +------ ---------+ | Transthoracic | [facility] | | Echocardiography Report (TTE) Demographics Patient Name MIKE | | | [place] Room Number J Patient Number | | | [id number] Date of Study 11/24/2017 Visit Number | | | [id number] Referring | | | Physician THERESE SY Number Date of 1955 | | | 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 Procedure dateDate: 11/24/2017Start: 12:56 | | | PM Technical Quality: Adequate visualizationStudy Location: Echo | | | LabIndications: Cardiomyopathy, Ischemic 414.8/I25.5.Patient Status: | | | RoutineHeight: 70 inchesWeight: 213 poundsBSA: 2.14 m^2BMI: 30.56 | | | kg/m^2Rhythm: Normal Sinus RhythmHR: 67 bpm ConclusionsSummary1. Mild | | | left atrial dilatation.2. Mild left ventricular dilatation with him | | | mild to moderate eccentric leftventricular hypertrophy. There is a | | | segmental wall motion abnormality withsevere hypokinesis of the entire | | | anterior and anteroseptal region. Overall,left ventricular systolic | | | function is moderately decreased. LVEF is 35-40%.3. Mild mitral valve | | | regurgitation.4. Mild tricuspid valve regurgitation.5. Borderline | | | pulmonary hypertension with a peak systolic pressure of 35-40mmHg.6. | | | Pacemaker lead in the right ventricle.7. Normal IVC with normal | | | respiratory collapse. | | | Signature | | | | | | AM | | | -------- FindingsMitral ValveMitral valve appears structurally and | | | functionally normal.Mild mitral regurgitation.Aortic ValveAortic valve | | | appears trileaflet.Tricuspid ValveMild tricuspid regurgitation | | | suggestive of a mildly elevated right systolicpressure of 35-40 | | | mmHg.Pulmonic ValveStructurally normal pulmonic valve without | | | significant stenosis orregurgitation.Left AtriumThe left atrium is | | | mildly dilated.Left VentricleMildly dilated left ventricle.Moderate | | | concentric left ventricular hypertrophy.Ejection fraction is visually | | | estimated at 35-40%.Right AtriumNormal right atrial size.Right | | | VentricleNormal right ventricular size.Right ventricle global systolic | | | function is normal.TAPSE = 1.9 cm.Pericardial EffusionNo evidence of | | | pericardial effusion.Pleural EffusionNo evidence of pleural | | | effusion.MiscellaneousThe aortic root, ascending aorta and aortic arch | | | are normal in size andappearance.The inferior vena cava is normal in | | | size with the normal respiratoryresponse. Valves Mitral Valve Peak | | | E-Wave: 1.04 m/s Tissue Doppler Septal e' Velocity: 0.10 m/s Aortic | | | Valve Peak Velocity: 1.13 m/s Peak Gradient: 5.11 mmHg Tricuspid | | | Valve TR Velocity: 2.8 m/s LVOT Peak Velocity: 1.15 m/s LVOT | | | Diameter: 2.24 cm Structures Left Atrium LA A/P Dimension: 4.6 cm | | | LA Volume: 93 ml LA Vol/BSA | | | Index: 43 mL/m^2 EF Mynlbdjyx03% | | | Left Ventricle Diastolic Dimension: 4.9 cm Septum Diastolic: 1.6 cm | | | PW Diastolic: 1.4 cm Miscellaneous Aorta Aortic Root: 3.7 cm | | | Ascending Aorta: 3.6 cm | | | | | | Electronically signed by LAUREN CHESTER MD(Interpreting physician) on | | | 11/25/2017 07:20 AM | | | | | | | | |Findings | | |Mitral Valve | | |Mitral valve appears structurally and functionally normal. | | |Mild mitral regurgitation. | | |Aortic Valve | | |Aortic valve appears trileaflet. | | |Tricuspid Valve | | |Mild tricuspid regurgitation suggestive of a mildly elevated right systolic | | |pressure of 35-40 mmHg. | | |Pulmonic Valve | | |Structurally normal pulmonic valve without significant stenosis or | | |regurgitation. | | |Left Atrium | | |The left atrium is mildly dilated. | | |Left Ventricle | | |Mildly dilated left ventricle. | | |Moderate concentric left ventricular hypertrophy. | | |Ejection fraction is visually estimated at 35-40%. | | |Right Atrium | | |Normal right atrial size. | | |Right Ventricle | | |Normal right ventricular size. | | |Right ventricle global systolic function is normal. | | |TAPSE = 1.9 cm. | | |Pericardial Effusion | | |No evidence of pericardial effusion. | | |Pleural Effusion | | |No evidence of pleural effusion. | | |Miscellaneous | | |The aortic root, ascending aorta and aortic arch are normal in size and | | |appearance. | | |The inferior vena cava is normal in size with the normal respiratory | | |response. | | | | | |Valves | | | | | | Mitral Valve | | | | | | Peak E-Wave: 1.04 m/s | | | | | | Tissue Doppler | | | | | | Septal e' Velocity: 0.10 m/s | | | | | | Aortic Valve | | | | | | Peak Velocity: 1.13 m/s | | | Peak Gradient: 5.11 mmHg | | | | | | Tricuspid Valve | | | | | | TR Velocity: 2.8 m/s | | | | | | LVOT | | | | | | Peak Velocity: 1.15 m/s | | | LVOT Diameter: 2.24 cm | | | | | |Structures | | | | | | Left Atrium | | | | | | LA A/P Dimension: 4.6 cm LA Volume: 93 ml | | | LA Vol/BSA Index: 43 mL/m^2 EF Jbjgaqput60% | | | | | | Left Ventricle | | | | | | Diastolic Dimension: 4.9 cm | | | Septum Diastolic: 1.6 cm | | | PW Diastolic: 1.4 cm | | | | | | Miscellaneous | | | | | | Aorta | | | | | | Aortic Root: 3.7 cm | | | Ascending Aorta: 3.6 cm | | | | | + +------ ---------+ + + | Procedure Note | + + | Sebastian, Rad Results In - 11/25/2017 7:21 AM PDT Transthoracic Echocardiography Report | | (TTE) Demographics Patient Name MIKE VELASQUEZ Room Number J Patient | | Number [id number] Date of Study 11/24/2017 Visit Number [id number] | | Referring Physician THERESE SY Number Date of | | 1955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 Mild left atrial dilatation.2. Mild left ventricular dilatation | | with him mild to moderate eccentric leftventricular hypertrophy. There is a segmental | | wall motion abnormality withsevere hypokinesis of the entire anterior and anteroseptal | | region. Overall,left ventricular systolic function is moderately decreased. LVEF is | | 35-40%.3. Mild mitral valve regurgitation.4. Mild tricuspid valve regurgitation.5. | | Borderline pulmonary hypertension with a peak systolic pressure of 35-40mmHg.6. | | Pacemaker lead in the right ventricle.7. Normal IVC with normal respiratory | | collapse.Signature | | ------ Electronically signed by LAUREN CHESTER MD(Interpreting physician) on | | 11/25/2017 07:20 | | AM FindingsMi | | tral ValveMitral valve appears structurally and functionally normal.Mild mitral | | regurgitation.Aortic ValveAortic valve appears trileaflet.Tricuspid ValveMild tricuspid | | regurgitation suggestive of a mildly elevated right systolicpressure of 35-40 | | mmHg.Pulmonic ValveStructurally normal pulmonic valve without significant stenosis | | orregurgitation.Left AtriumThe left atrium is mildly dilated.Left VentricleMildly | | dilated left ventricle.Moderate concentric left ventricular hypertrophy.Ejection | | fraction is visually estimated at 35-40%.Right AtriumNormal right atrial size.Right | | VentricleNormal right ventricular size.Right ventricle global systolic function is | | normal.TAPSE = 1.9 cm.Pericardial EffusionNo evidence of pericardial effusion.Pleural | | EffusionNo evidence of pleural effusion.MiscellaneousThe aortic root, ascending aorta | | and aortic arch are normal in size andappearance.The inferior vena cava is normal in | | size with the normal respiratoryresponse.Valves Mitral Valve Peak E-Wave: 1.04 m/s | | Tissue Doppler Septal e' Velocity: 0.10 m/s Aortic Valve Peak Velocity: 1.13 m/s Peak | | Gradient: 5.11 mmHg Tricuspid Valve TR Velocity: 2.8 m/s LVOT Peak Velocity: 1.15 m/s | | LVOT Diameter: 2.24 cmStructures Left Atrium LA A/P Dimension: 4.6 cm | | LA Volume: 93 ml LA Vol/BSA Index: 43 mL/m^2 EF | | Ujyuzjfbz94% Left Ventricle Diastolic Dimension: 4.9 cm Septum Diastolic: 1.6 cm PW | | Diastolic: 1.4 cm Miscellaneous Aorta Aortic Root: 3.7 cm Ascending Aorta: 3.6 cm | |1. Mild left atrial dilatation. | |2. Mild left ventricular dilatation with him mild to moderate eccentric left | |ventricular hypertrophy. There is a segmental wall motion abnormality with | |severe hypokinesis of the entire anterior and anteroseptal region. Overall, | |left ventricular systolic function is moderately decreased. LVEF is 35-40%. | |3. Mild mitral valve regurgitation. | |4. Mild tricuspid valve regurgitation. | |5. Borderline pulmonary hypertension with a peak systolic pressure of 35-40 | |mmHg. | |6. Pacemaker lead in the right ventricle. | |7. Normal IVC with normal respiratory collapse. | | | |Signature | | | | Electronically signed by LAUREN CHESTER MD(Interpreting physician) on | | 11/25/2017 07:20 AM | | | | | |Findings | |Mitral Valve | |Mitral valve appears structurally and functionally normal. | |Mild mitral regurgitation. | |Aortic Valve | |Aortic valve appears trileaflet. | |Tricuspid Valve | |Mild tricuspid regurgitation suggestive of a mildly elevated right systolic | |pressure of 35-40 mmHg. | |Pulmonic Valve | |Structurally normal pulmonic valve without significant stenosis or | |regurgitation. | |Left Atrium | |The left atrium is mildly dilated. | |Left Ventricle | |Mildly dilated left ventricle. | |Moderate concentric left ventricular hypertrophy. | |Ejection fraction is visually estimated at 35-40%. | |Right Atrium | |Normal right atrial size. | |Right Ventricle | |Normal right ventricular size. | |Right ventricle global systolic function is normal. | |TAPSE = 1.9 cm. | |Pericardial Effusion | |No evidence of pericardial effusion. | |Pleural Effusion | |No evidence of pleural effusion. | |Miscellaneous | |The aortic root, ascending aorta and aortic arch are normal in size and | |appearance. | |The inferior vena cava is normal in size with the normal respiratory | |response. | | | |Valves | | | | Mitral Valve | | | | Peak E-Wave: 1.04 m/s | | | | Tissue Doppler | | | | Septal e' Velocity: 0.10 m/s | | | | Aortic Valve | | | | Peak Velocity: 1.13 m/s | | Peak Gradient: 5.11 mmHg | | | | Tricuspid Valve | | | | TR Velocity: 2.8 m/s | | | | LVOT | | | | Peak Velocity: 1.15 m/s | | LVOT Diameter: 2.24 cm | | | |Structures | | | | Left Atrium | | | | LA A/P Dimension: 4.6 cm LA Volume: 93 ml | | LA Vol/BSA Index: 43 mL/m^2 EF Frzgpuxeg11% | | | | Left Ventricle | | | | Diastolic Dimension: 4.9 cm | | Septum Diastolic: 1.6 cm | | PW Diastolic: 1.4 cm | | | | Miscellaneous | | | | Aorta | | | | Aortic Root: 3.7 cm | | Ascending Aorta: 3.6 cm | + + + +---------+ + [...] | | disease | + + | Coronary artery disease involving [place] coronary artery of [place] heart without | | angina pectoris | + + | Acute anterior wall HI (HCC) Acute myocardial infarction of other anterior wall, | | episode of care unspecified | + + documented in this encounter
--- OUTSIDE RECORDS SUMMARY | ~2020-03-04 | XMS | Encounter Summary ---
Demographics + + + | Address | [address] | | | [place] [address] | + + + | Home Phone | | + + + | Preferred Language | Unknown | + + + | Marital Status | | + + + | Baptism Affiliation | Unknown | + + + | Race | Unknown | + + + | Ethnic Group | Unknown | + + + Author + + + | Author | [facility] | | | and [place] | + + + | Organization | [facility] | | | and [place] | + + + | Address | Unknown | + + + | Phone | Unavailable | + + + Support + + + + + | Name | Relationship | Address | Phone | + + + + + | [address] | [address] | [place], [place] | | | | | [address] | | + + + + + Care Team Providers + +------+ + | Care Transition Of Care Specialist Name | Role | Phone | + +------+ + PCP | Unavailable | + +------+ + Encounter Details +--------+ + + + + | Date | Type | Department | Care Team | Description | +--------+ + + + + | 10/04/ | Hospital | [facility] | Conversion | Pain | | 2018 | Encounter | CONVERSION [address] | Transaction, | | | | | [address] | Provider Unknown | | | | | [place], [place] | [phone] | | | | | [phone] | (Fax) | | | | | [phone] | | | +--------+ + + + [...] Take 81 mg by mouth | | 0 | | | | tablet | Daily. | | | | | + + + +---------+ + + | | Take 3 mLs by | 360 mL | 0 | 10/09/19 | | | albuterol-ipratropiu | nebulization Every 4 | | | 18 | 8 | | m (DUONEB) 2.5-0.5 | hours. | | | | | | mg/3 mL SOLN | | | | | | + + + +---------+ + + | amiodarone | Take 1 tablet by | 60 | 0 | 10/10/19 | | | (PACERONE) 200 mg | mouth Daily. | tablet | | 18 | 8 | | tablet | | | | | | + + + +---------+ + + | | Take 1 tablet by | | 0 | | | | aspirin-acetaminophe | mouth every 6 hours | | | | 8 | | n-caffeine (EXCEDRIN | as needed for Pain. | | | | | | EXTRA STRENGTH) | | | | | | | 250-250-65 MG per | | | | | | | tablet | | | | | | + + + +---------+ + + | atorvaSTATin | Take 40 mg by mouth | | 0 | 04/02/20 | | | (LIPITOR) 40 mg | nightly. | | | 17 | 8 | | tablet | | | | | | + + + +---------+ + + | carvedilol (COREG) | Take 1 tablet by | 60 | 0 | 10/09/19 | | | 3.125 mg tablet | mouth 2 times daily | tablet | | 18 | 8 | | | (with breakfast & | | | | | | | dinner). | | | | | + + + +---------+ + + | carvedilol (COREG) | Take 3.125 mg by | | 0 | | | | 3.125 mg tablet | mouth 2 times daily | | | | 8 | | | (with breakfast & | | | | | | | dinner). | | | | | + + + +---------+ + + | cefTRIAXone | Inject 2 g into the | | 0 | 10/10/19 | | | (ROCEPHIN) 2 [...] Daily. | tablet | | 17 | 8 | | tablet | | | | | | + + + +---------+ + + | dextran | 1 drop. | | 0 | 04/02/20 | | | 70-hypromellose | | | | 17 | 9 | | (NATURAL BALANCE | | | | | | | TEARS) 0.1-0.3% | | | | | | | ophthalmic solution | | | | | | + + + +---------+ + + | ergocalciferol | Take 50,000 Units by | | 0 | | | | (VITAMIN D-2) 50,000 | mouth Once a week. | | | | 8 | | units capsule | | | | | | + + + +---------+ + + | gabapentin | Take 2 capsules by | | 0 | | | | (NEURONTIN) 300 mg | mouth 3 times daily. | | | | 8 | | capsule | | | | | | + + + +---------+ + + | | Take 1 tablet by | | 0 | | | | HYDROcodone-acetamin | mouth 3 times daily | | | | 8 | | ophen (NORCO) 10-325 | as needed for Pain. | | | | | | mg per tablet | | | | | | + + + +---------+ + + | | Take 1-2 tablets by | | 0 | 10/09/19 | | | HYDROcodone-acetamin | mouth every 4 hours | | | 18 | 8 | | ophen (NORCO) 5-325 | as [...] + + + +---------+ + + | ketorolac (ACULAR) | Place 1 drop into | | 0 | | | | 0.5% ophthalmic | the right eye 4 | | | | 8 | | solution | times daily. Start | | | | | | | using 3 days prior | | | | | | | to surgery. Continue | | | | | | | after surgery. | | | | | + + + +---------+ + + | lisinopril | Take 3 tablets by | 210 | 3 | 09/02/20 | | | (PRINIVIL, ZESTRIL) | mouth Daily. | tablet | | 17 | 8 | | 5 mg tablet | | | | | | + + + +---------+ + + | metFORMIN | Take 500 mg by mouth | | 0 | | | | (GLUCOPHAGE) 500 mg | 2 times daily. | | | | 8 | | tablet | | | | | | + + + +---------+ + + | naloxone (NARCAN) | 4 mg by Nasal route | | 0 | | | | 4 mg/nasal spray | as needed (for | | | | 8 | | | suspected pain | | | | | | | medication | | | | | | | overdose). | | | | | + + + +---------+ + + | nitroglycerin | Place 1 tablet under | | 0 | 10/09/19 | | | (NITROSTAT) 0.4 mg | the tongue every 5 | | | 18 | 8 | | SL tablet | minutes as needed | | | | | | | for Chest pain. | | | | | + + + +---------+ + + | nystatin | Genital region | | 0 | 10/09/19 | | | (MYCOSTATIN) powder | | | | 18 | 8 | + + + +---------+ + + | pantoprazole | Take 1 tablet by | 30 | 0 | 10/09/19 | | | (PROTONIX) 40 mg | mouth 2 times daily | tablet | | 18 | 8 | | tablet | (before meals). | | | | | + + + +---------+ + + | prednisoLONE (PRED | Place 1 drop into | | 0 | | | | FORTE) 1% | the left eye 4 times | | | | 8 | | ophthalmic | daily. Start after | | | | | | suspension | surgery | | | | | + + + +---------+ + + | raNITIdine | Take 300 mg by mouth | | 0 | | | | (ZANTAC) 300 MG | nightly. | | | | 8 | | tablet | | | | | | + + + +---------+ + + | traMADol (ULTRAM) | Take 100 mg by mouth | | 0 | 05/27/20 | | | 50 mg tablet | 3 times daily as | | | 17 | 8 | | | needed for Pain. | | | | | + + + +---------+ + + documented as of this encounter Plan of Treatment +--------+ + + + + | Date | Type | Specialty | Care Team | Description | +--------+ + + + + | 03/12/ | Office | Nephrology | Juan Pablothalyocasta, | | | 2020 | Visit | | [facility] [address] | | | | | | [address] | | | | | | [address] [place] | | | | | | [address] | | | | | | | | +--------+ + + + + | 04/16/ | Office | Cardiology | Alin Anderson | | | 2019 | Visit | | MD Cheryl Arreguin | | | | | | [address] | | | | | | [place] [address] | | | | | | [phone] | | | | | | | [...] [place] | | | | | | [address] | | | | | | | | +--------+ + + + + documented as of this encounter Procedures + +--------+ + + + | Procedure Name | Priori | Date/Time | Associated Diagnosis | Comments | | | ty | | | | + +--------+ + + + | CV CARDIAC PROCEDURE | Routin | 10/03/2017 | | Results for this | | | e | 3:59 AM | | procedure are in the | | | | PST | | results section. | + +--------+ + + + documented in this encounter Results CV CARDIAC PROCEDURE (10/03/2017 3:59 AM PST) + + | Specimen | + + | | + + + + + | Narrative | Performed At | + + + | This is a non-reportable procedure without a radiologist report and | | | is used for image storage only | | + + + + + | Procedure Note | + + | Clayton Cortes - 04/27/2019 3:50 PM PDT This is a non-reportable procedure | | without a radiologist report and isused for image storage only | + + documented in this encounter Visit Diagnoses + + | Diagnosis | + + | Pain Generalized pain | + + documented in this encounter"
--- OUTSIDE RECORDS SUMMARY | ~2020-03-04 | XMS | Encounter Summary ---
Demographics + + + | Address | [address] | | | [place] [address] | + + + | Home Phone | | + + + | Preferred Language | Unknown | + + + | Marital Status | | + + + | Spiritism Affiliation | Unknown | + + + | Race | Unknown | + + + | Ethnic Group | Unknown | + + + Author + + + | Author | [facility] | | | and [place] | + + + | Organization | [facility] | | | and [place] | + + + | Address | Unknown | + + + | Phone | Unavailable | + + + Support + + + + + | Name | Relationship | Address | Phone | + + + + + | [place] Will | ECON | [place], [place] | | | | | [address] | | + + + + + Care Team Providers + +------+ + | Care Kiln Fireman Name | Role | Phone | + [...] Closed | | Radiology | Diagnoses | [place], | [facility] | | | | | Ischemic | MD Lauren | [address] | | | | | cardiomyopat | [address] | [place], | | | | | hy | [address] | [place] | | | | | Procedures | [place], | [address] | | | | | ECHO | [place] [address] | Phone: | | | | | Complete [place] | Phone: | [phone] | | | | | ECHO HEART | [phone] | Fax: | | | | | [place] | Fax: | [phone] | | | | | [address] | [phone] | | | | | | [place] | | | | | | | [...] | Cardiomyopathy | | + + + Follow Up (Routine) +--------+--------+ + + + + | Status | Reason | Specialty | Diagnoses / | Referred By | Referred To | | | | | Procedures | Contact | Contact | +--------+--------+ + + + + | Closed | | Cardiology | Diagnoses | [place], | [place], | | | | | | Young Barajas DO | MD Lauren | | | | | Atherosclero | [address] | [address] | | | | | tic heart | [address] | [address] | | | | | disease of | [address] | [place], | | | | | [place] | [address] | [place] [address] | | | | | coronary | [place] | Phone: | | | | | artery | [address] | [phone] | | | | | without | Phone: | Fax: | | | | | angina | [phone] | [phone] | | | | | pectoris ST | | | | | | | elevation | | | | | | | (STEMI) [...] | | | | | | | F/U | | | +--------+--------+ + + + + Encounter Details +--------+---------+ + + + | Date | Type | Department | Care Team | Description | +--------+---------+ + + + | 03/18/ | Office | [facility] | Lauren Figueroa, | Implantable | | 2018 | Visit | CARDIOLOGY [address] | [address] [facility] | defibrillator | | | | [place], | [place], | reprogramming/check | | | | [place] [address] | [place] [address] | (Primary Dx); SAFETY INVESTIGATOR-D | | | | [phone] | [phone] | (AICD) Medtronic | | | | | | 10/16/17 EULOGIO Darby; | | | | | | Ischemic | | | | | | cardiomyopathy; | | | | | | Tachycardia | +--------+---------+ + + + Social History [...] + + + | Blood Pressure | 136/64 | 03/18/2018 7:57 AM | | | | | PDT | | + + + + + | Pulse | 70 | 03/18/2018 7:57 AM | | | | | PDT | | + + + + + | Temperature | - | - | | + + + + + | Respiratory Rate | 18 | 03/18/2018 7:57 AM | | | | | PDT | | + + + + + | Oxygen Saturation | - | - | | + + + + + | Inhaled Oxygen | - | - | | | Concentration | | | | + + + + + | Weight | 98.9 kg (218 lb) | 03/18/2018 7:57 AM | | | | | PDT | | + + + + + | Height | 177.8 cm (5' 10") | 03/18/2018 7:57 AM | | | | | PDT | | + + + + + | Body Mass Index | 31.28 | 03/18/2018 7:57 AM | | | | | PDT | | + + + + + documented in this encounter Patient Instructions Patient Instructions Suzanne Cheng RN - 03/18/2018 8:00 AM PDT Increase lisinopril to 20 mg twice a day Check blood pressure and pulse twice a day for 2 weeks, mail in envelope provided Blood test: Non-fasting Date Due: 1 week after increase of lisinopril Where to go for labs: [facility]- [address] [facility] Echo: Date: Check-In Time: Where to Check In: Follow up appointment: 3-4 weeks Provider: Date: Check-In Time: documented in this encounter Progress Notes Lauren Figueroa MD - 03/18/2018 8:00 AM PDTFormatting of this note might be different f rom the original. PATIENT NAME: Ron Will : 1955: AGE: 62 y.o. PRIMARY CARE: Chato Matson MD OUTPATIENT FOLLOW UP VISIT Date of Service: 03/18/2018 HISTORY OF PRESENT ILLNESS: Ron Will is a 62 y.o. male with a history of coronary artery disease post recent anterior wall GA, post PTCA and stents of the left main, LAD and LCx on 03/15/17, cardiac shoc k, left atrial appendage thrombus, recent status post stents to , SAFETY INVESTIGATOR-D placement in [facility] on 10/17/2017. He is being seen today for follow up for coronary artery disease, cardiomyopat hy. He was last seen 01/13/18 at which time patient was to start furosemide 20 mg daily, also shae ck blood pressure and pulse for 2 weeks. Since that time, patient reports he has been ridin g his bike, and walking around the park daily. Today, Patient reports having breathlessness but relates it to taking really hot showers. Patient has been having problems sleeping at [facility], but relates it to the hot weather. Patient has no complaints of chest pain or chest dis comfort both at rest and on exertion. There is no palpitation, dizziness or lightheadedness. Patient has no complaints of ankle or leg swelling. [facility]. MEDICAL, SURGICAL, AND PERSONAL HISTORY Past Medical, Surgical, Family, and Social History are reviewed in EPIC. CURRENT PROBLEMS Patient Active Problem List Diagnosis Acute anterior wall GA Coronary artery disease involving [place] coronary artery of [place] heart without angina pectoris Ischemic cardiomyopathy Pulmonary edema SAFETY INVESTIGATOR-D (AICD) Medtronic 10/16/17 [facility] Stecker Implantable defibrillator reprogramming/check H/O atrial flutter Tachycardia GERD (gastroesophageal reflux disease) PAD (peripheral artery disease) CURRENT MEDICATIONS Current Outpatient Prescriptions Medication Sig Dispense Refill aspirin 81 MG tablet Take 81 mg by mouth Daily. atorvaSTATin (LIPITOR) 80 MG tablet Take 1 tablet by mouth nightly. 30 tablet 5 Cholecalciferol (VITAMIN D-3) 58553 units CAPS Take by mouth Once a week. clopidogrel (PLAVIX) 75 mg tablet Take 1 tablet by mouth Daily. 90 tablet 3 furosemide (LASIX) 20 mg tablet Take 1 tablet by mouth Daily. 30 tablet 4 gabapentin (NEURONTIN) 300 mg capsule Take 300 mg by mouth 3 times daily. HYDROcodone-acetaminophen (NORCO) 5-325 mg per tablet Take 1-2 tablets by mouth every 4 hours as needed for Pain (Pain). (Patient taking differently: Take 2 tablets by mouth every 4 hours as needed for Pain (Pain).) 0 lisinopril (PRINIVIL, ZESTRIL) 5 mg tablet 2 times daily. metFORMIN (GLUCOPHAGE) 500 mg tablet Take 500 mg by mouth 2 times daily (with breakfast & dinner). metoprolol succinate (TOPROL-XL) 25 mg 24 hr tablet TAKE ONE TABLET BY MOUTH EVERY DAY 90 tablet 3 nitroglycerin (NITROSTAT) 0.[address] 1 tablet under the tongue every 5 shai janeth as needed for Chest pain. 0 pantoprazole (PROTONIX) 40 mg tablet Take 40 mg by mouth 2 times daily. raNITIdine (ZANTAC) 300 MG capsule Take 300 mg by mouth every evening. traMADol (ULTRAM) 50 mg tablet Take 50 mg by mouth every 6 hours as needed. No current facility-administered medications for this visit. ALLERGIES No Known Allergies ROS Review of Systems Constitutional: Positive for diaphoresis and malaise/fatigue. Negative for chills, fever an d weight loss. HENT: Negative for congestion, hearing loss, nosebleeds and tinnitus. Dental Problems = No Eyes: Negative for blurred vision and double vision. Respiratory: Positive for shortness of breath. Cardiovascular: Negative for chest pain, palpitations and leg swelling. Gastrointestinal: Negative for blood in stool, constipation, diarrhea, nausea and vomiting. Genitourinary: Negative for dysuria, frequency, hematuria and urgency. Musculoskeletal: Positive for myalgias and neck pain (chronic arthritis). Negative for back pain, falls and joint pain. Gait Problems = No Skin: Negative for itching and rash. Neurological: Positive for weakness. Negative for dizziness, tingling, tremors, speech de la cruz ge, seizures and loss of consciousness. Lightheaded = No Endo/Heme/Allergies: Bruises/bleeds easily (relates to blood thinners.). Psychiatric/Behavioral: Positive for memory loss. The patient has insomnia. The patient is not nervous/anxious. OBJECTIVE: PHYSICAL EXAM BP 136/64 | Pulse 70 | Resp 18 | Ht 1.778 m (5' 10") | Wt 98.9 kg (218 lb) | BMI 31.28 kg/m Physical Exam Constitutional: He is oriented to person, place, and time. He appears well-developed and we ll-nourished. No distress. Male individual arrives with his , without acute distress. HENT: Head: Normocephalic. Mouth/Throat: [...] normal. Skin: Skin is warm and dry. Bruising noted. He is not diaphoretic. No cyanosis. No pallor. Nails show no clubbing. Left upper chest incision healing appropiately Psychiatric: He has a normal mood and affect. His mood appears not anxious. He does not exh ibit a depressed mood. LAB RESULTS reviewed during visit today primarily from [facility]: LIPID Lab Results Component Value Date LDLEX 42 10/10/2017 HDLEX 21 10/10/2017 TRIGEX 131 10/10/2017 CHOLEX 89 10/10/2017 CHEMISTRY Lab Results Component Value Date GLU 107 10/09/2017 GLUEX 113 10/17/2017 NA 136 10/09/2017 NAEX 137 10/17/2017 K 3.5 10/09/2017 KEX 4.5 10/17/2017 CL 105 10/09/2017 CLEX 104 10/17/2017 CO2 24 10/09/2017 CO2EX 26 10/17/2017 CALCIUM 8.2 (L) 10/09/2017 ALKPHOS 89 10/03/2017 AST 77 (H) 10/03/2017 ASTEX 13 03/15/2017 ALT 29 10/03/2017 ALTEX 24 03/15/2017 BILITOT 0.6 10/03/2017 CREA 1.23 10/09/2017 BUN 26 (H) 10/09/2017 EGFREX 49 03/15/2017 CREEX 1.40 10/17/2017 HEMATOLOGY Lab Results Component Value Date WBC 10.9 10/07/2017 WBCEX 8.59 10/17/2017 HGB 14.3 10/07/2017 HGBEX 11.6 10/17/2017 HCT 43.3 10/07/2017 HCTEX 35.2 10/17/2017 PLT 178 10/07/2017 PLTEX 226 10/17/2017 Above data and testing is reviewed this [...] Monse Ross MD. Patient was complicated with dissection/thrombosis of left main, causing cardiogenic shock requiring IABP, pressor (dopa mine, norepinephrine). [facility] and [facility] on divert. Patient wasn't transferred to [facility], [facility]. B. Echocardiogram 03/17/2017 shows LV ejection fraction is severely de creased, visually estimated left ventricular ejection fraction is 20 - 25%, left ventricular systolic thickening is segmentally abnormal,mildly reduced RV systolic function. Normal R V size, no significant valvular abnormalities seen, compared to the most recent exam dated, 03/15/2017, there is no significant changes C. At [facility], patient had another STEMI code 03/29, with [...] to follow up closely with a local unleavened dough mixer in [place] . He wias dischargeed with a LifeVest [...] in the ostial LCx reducing a 90% raulito notic lesion to 0% resdual stenosis. G. Echocardiogram 06/04/17 [...] number of aortic valve leaflets cannot be i dentified, the left atrium is mildly dilated, normal left ventricular cavity size, mild conc entric left ventricular hypertrophy, ejection fraction is visually estimated at 40%, thinnin g and severe hypokinesis distal anterior, anterior septal, and apical segments, aortic root dimension within normal limits, mild mitral regurgitation present, no evidence of any perica rdial effusion, the pulmonic valve was not well visualized, normal right atrial size, normal right ventricular size and function, structurally normal tricuspid valve without significan t stenosis or regurgitation, Insufficient amount of tricuspid regurgitation for estimation o f pulmonary artery pressures, when compared with images of previous echo 06/04/17, no signifi cant changes. I. On 10/03/2017 the patient is presenting with fever, leukocytosis, possible p neumonitis on chest x-ray, and high grade ostial LAD and circumflex in-stent stenoses with n ew left bundle branch block and elevated troponin. The patient's primary illness may be pn eumonitis with septic shock with resulting hypotension causing myocardial ischemia. The pa tient will require coronary revascularization at some point. I recommend that we continue treating the patient with broad-spectrum antibiotics, fluid support, ventilatory support and pressors as needed. The patient's left ventricular filling pressures and unchanged left v entricular function and echocardiogram do not suggest acute cardiac decompensation as his pr imary reason for hypotension. If the patient shows signs of cardiac instability we will tr ansfer the patient to [facility] for consideration of urgent coronary revascularization. J. Angiogram done by Dr. Gomez/Vandana on 10/03/2017 shows Systemic hypotension , upper normal left ventricular end-diastolic pressure. Severe in-stent stenosis of left romero n to ostial LAD stent. Severe in-stent stenosis ostial proximal left circumflex stent. Mil d to moderate RCA disease.ANNA grade 1 flow to distal LAD K. Transthoracic Echocardiogram 10/11/17 shows the left ventricular cavity size i s normal , the LV function is severely abnormal, left ventricular systolic thickening is seg ment ally abnormal, visually estimated left ventricular ejection fraction is 30-35%, RV cav ity size is normal, RV global systolic function is mildly reduced, there is mild dial ation of the as sending aorta, compared to the most recent exam dated 03/30/17, the LVFF is similar . L. Cardiac Cath ordered by Arya Christian 10/15/17 shows successful percutaneou s coronary continue aggressive cardiac risk factor management , intervention to the ostial l eft circumflex with one 3.0 x 18 mm resolute oseas drug - eluting stent , successful percutan eous coronary transluminal angioplasty of the distal left main extending into the left ante rior descending coronary artery with a final kissing balloon inflation with a 3.5 mm noncomp liant and 2.5 mm complaint balloon, recommendations ; continue clopidogrel 75 mg daily for a t least 12 months , therapy given bifurcation and left main stenting with multiple stent la yers if tolerating , continue with Asprin 81 mg daily indefinitely , continue aggressive car diac risk management , optimal medical care for ischemic cardiomyopathy M. Today, Patient reports having breathlessness but relates it to taking really hot show ers. Patient has been having problems sleeping at night, but relates it to the hot weather. Patient is doing well from cardiac standpoint. He is asymptomatic and physically active. Th ere is no signs and symptoms of overt congestive heart failure. He is in a class II of [employer] functional class. There is no fluid retention on physical examinatio n.Pace maker interrogation reveals a normal stable functioning device. 2. Ischemic Cardiomyopathy: Heart failure with reduced ejection fraction A. Transthoracic Echocardiogram 10/11/17 shows the left ventricular cavity size i s normal , the LV function is severely abnormal, left ventricular systolic thickening is seg ment ally abnormal, visually estimated left ventricular ejection fraction is 30-35%, RV cav ity size is normal, RV global systolic function is mildly reduced, there is mild dial ation of the as sending aorta, compared to the most recent exam dated 03/30/17, the LVFF is similar . B. Pet Scan 10/13/17 shows No Significant tracer uptake within mid- to - distal a nterior wall/interventricular septum and apex corresponding to same non- perfused areas seen on myocardial rest perfusion scan , compatible with nonviable myocardium in these regions. C. S/P [employer] SAFETY INVESTIGATOR-D 10-16-17 Dr Darby, [facility]. Ice interrogation today shows one episode of 29 beats of SVT with no therapy required. D. Echocardiogram 11/24/2017 shows Mild left atrial dilatation, mild left ventricular dila tation with him mild to moderate eccentric left ventricular hypertrophy, there is a segmenta l wall motion abnormality with severe hypokinesis of the entire anterior and anteroseptal re gion, overall, left ventricular systolic function is moderately decreased, LVEF is 35-40%, m ild mitral valve regurgitation, mild tricuspid valve regurgitation, borderline pulmonary hyp ertension with a peak systolic pressure of 35-40 mmHg, pacemaker lead in the right ventricle , normal IVC with normal respiratory collapse. E. Heart failure is well compensated. 3. Ventricular tachycardia: A. Electrophysiology Study 10/16/17 shows positive EP study for inducible ventric ular tachycardia. 4. Left atrial appendage thrombus A. Noted on MARKY in the [place] during ECMO decannulation. Completedhep jennie gtt bridge 03/29 to therapeutic warfarin. Not on warfarin any more, no evidence of throm bus in last echocardiogram 5. Paroxysmal atrial flutter: A. Episode was seen while vision was hospitalized a week ago. This was after h is GA and at the same time patient was having ventricular tachycardia. He was initiated on amiodarone and then discontinued before discharge. The plan is to monitor through his device and see if this is a problem that needs to be addressed. Patient is not on anticoagulation he was left that way from [facility]. Patient has had several GI bleeds and he felt at that poin t that he is bleeding risk are higher therefore they will be possibility of reinitiating ant icoagulation if patient has more episodes of paroxysmal atrial flutter 6. Positive screening for PAD : A. Vas segmental pressures legs 11/24/2017 abnormal left ankle brachial index of 0.91 consi stent with single segment disease. 7. Normocytic anemia PLAN: 1. Pace maker interrogation reveals a normal stable functioning device. 2. Increase Lisinopril to 20 mg twice a day to treat heart failure with reduced ejection fr action. 3. Check blood pressure x 2 weeks. Check [place] in 1 week. 4. Echocardiogram is warranted to assess cardiac structure. 5. I recommend a therapeutic lifestyle change including walking 30 minutes a day, choosing healthy choices of diet , including DASH diet and weight reduction. 6. Follow-up in 3-4 weeks for OC/Thresh. I Krysten Lehman am acting as a scribe on behalf of, and in the presence of Sania Garibay. I have reviewed and edited this note. Krysten Lehman CMA 03/18/2018 ILauren MD, personally performed the services described in this documentation, as scribed in my presence and it is both accurate and complete. Krysten Lehman CMA 03/18/2018 8:01 Electronically signed by: Lauren Figueroa MD [facility] 03/18/2018 Portions of this chart may have been created with [employer] voice recognition software. Occasi onal wrong-word or sound-alike substitutions may have occurred due to the inherent canseco itations of voice recognition software. Please read the chart carefully and recognize, using context, where these substitutions have occurred documented in this encounter Procedure Notes Lauren Figueroa MD - 03/18/2018 8:00 AM PDTAssociated Order(s): DEVICE INTERROGATIONPro cedure(s): DEVICE INTERROGATIONPre-Procedure Diagnose(s): Implantable defibrillator reprogra mming/check; Biventricular ICD (implantable cardioverter-defibrillator) in place; Ischemic c ardiomyopathy; Tachycardia PATIENT NAME: Ron Will : 1955: AGE: 62 y.o. ICD Evaluation Report March 18, 2018 Reason for evaluation: routine Indication for ICD: ICD-10-CM ICD-9-CM 1. Implantable defibrillator reprogramming/check Z45.02 V53.32 Device Interrogation 2. SAFETY INVESTIGATOR-D (AICD) Medtronic 10/16/17 [facility] Stecker Z95.810 V45.02 Device Interrogation 3. Ischemic cardiomyopathy I25.5 414.8 Device Interrogation 4. Tachycardia R00.0 785.0 Device Interrogation Patient was seated and reclined and device [...] details. Data collected by Kelly Rodriguez RN Underlying rhythm: sinus rhythm 70 beats. 0 mode switch episodes accounting for 0% of the time. No episodes. No tachycardia therapies recommended or delivered. PVC singles 1.1/hour PVC runs 2.7/hour Biventricular pacing 98.3% Histogram good. Battery longevity 9.6 years. Normal and stable device function. Quarterly remote monitoring. Device interrogation due in office in 12 months. documented in this encounter Plan of Treatment +--------+ + + + + | Date | Type | Specialty | Care Team | Description | +--------+ + + + + | 03/12/ | Office | Nephrology | Litzy, | | | 2019 | Visit | | ADARSH [address] | | | | | | [address] | | | | | | [address] [place] | | | | | | [address] | | | | | | | | +--------+ + + + + | 04/16/ | Office | Cardiology | Alin Anderson | | | 2019 | Visit | | MD Cheryl Arreguin | | | | | | [address] | | | | | | [place] [address] | | | | | | [phone] | | | | | | | | +--------+ + + + + | 04/16/ | Procedure | Cardiology | | | | 2019 | visit | | | | +--------+ + + + + | 04/25/ | Office | Cardiology | Rocio Pearl, | | | 2019 | Visit | | [address] | | | | | | [place] | | | | | | [address] | | | | | | | | +--------+ + + + + + +------+--------+ + + | Name | Type | Priori | Associated Diagnoses | Order Schedule | | | | ty | | | + +------+--------+ + + | Basic Metabolic | Lab | Routin | Ischemic | Expected: | | Panel | | e | cardiomyopathy | 03/18/2018, Expires: | | | | | | 03/18/2019 | + +------+--------+ + + documented as of this encounter Procedures + +--------+ + + + | Procedure Name | Priori | Date/Time | Associated Diagnosis | Comments | | | ty | | | | + +--------+ + + + | DEVICE INTERROGATION | Routin | 03/18/2018 | Implantable | Results for this | | | e | 8:00 AM | defibrillator | procedure are in the | | | | PDT | reprogramming/check | results section. | | | | | SAFETY INVESTIGATOR-D (AICD) | | | | | | Medtronic 10/16/17 | | | | | | EULOGIO Darby | | | | | | Ischemic | | | | | | cardiomyopathy | | | | | | Tachycardia | | + +--------+ + + + documented in this encounter Results ECHO Complete (04/02/2018 9:00 AM PDT) + +-------+ + + + | Component | Value | Ref Range | Performed | Pathologist | | | | | At | Signature | + +-------+ + + + | LVEF-TTE | 32 | | [facility] | | | [...] Demographics Patient Name MIKE | | | CALVIN Room Number J Patient Number | | | [id number] Date of Study 04/02/2018 Visit | | | Number [id number] Referring | | | Physician CAROLINA AGUILAR Number Date of 1955 | | | Instructional Support Technician FRANNIE ISAACS RDCS Age | | | 62 year(s) Interpreting CAROLINA AGUILAR | | | Linux Unix Engineer | | | LAUREN FIGUEROA, | | | Gender Male | | | Nurse | | | Stress Certified Master 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 Procedure Type of Study TTE procedure: ECHO [...] | | | Dimension: 5.1 cm LA Volume: 49 ml LA | | | Vol/BSA Index: 23 mL/m^2 Left Ventricle Diastolic Dimension: 6.4 cm | | | Septum Diastolic: 1 cm PW Diastolic: 0.9 cm EF Eggmeinvu45% EF | | | Calculated: 32% Miscellaneous Aorta Aortic Root: 3.4 cm | | | | | | | [...] Diastolic: 0.9 cm | | | EF Iujfrfuqw37% | | | EF Calculated: 32% | | | | | | Miscellaneous | | | | | | Aorta | | | | | | Aortic Root: 3.4 cm | | | | | + + --+ + + | Procedure Note | + + | Sebastian, Rad Results In - 04/05/2018 10:13 AM [facility] Transthoracic Echocardiography Report | | (TTE) Demographics Patient Name MIKE RON Room Number J Patient | | Number [id number] Date of Study 04/02/2018 Visit Number [id number] | | Referring Physician CAROLINA AGUILAR Number Date of | | 1955 Instructional Support Technician FRANNIE ISAACS RDCS Age 62 | | year(s) Interpreting CAROLINA AGUILAR | | Linux Unix Engineer LAUREN FIGUEROA, | | Gender Male Nurse Stress | | TechnicianProcedureType of Study TTE procedure: ECHO Complete.Procedure dateDate: | | 04/02/2018Start: 08:05 AMTechnical Quality: Limited visualizationStudy Location: Echo | | LabIndications: CARDIOMYOPATHY 425.4/ I42.9.Patient Status: RoutineHeight: 70 | | inchesWeight: 218 poundsBSA: 2.17 m^2BMI: 31.28 kg/m^2Rhythm: Normal Sinus | | RhythmConclusionsSummary1. Mild biatrial dilatation.2. Mild left ventricular dilatation | | with mild eccentric left ventricularhypertrophy. There is a segmental wall motion | | abnormality with severehypokinesis of the entire anterior and anteroseptal region. | | Overall, leftventricular systolic function is moderately decreased. LVEF is 30-35%.3. | | Grade 1 left ventricular diastolic dysfunction.4. Mild mitral valve regurgitation.5. | | Normal right-sided pressure.6. Normal IVC with normal respiratory collapse.7. When | | compared to echocardiogram on 11/25/17, left ventricular systolicfunction continued to | | deteriorate.Signature | | --------- Electronically signed by LAUREN FIGUEROA MD(Interpreting physician) on | | 04/05/2018 10:13 | | AM FindingsMi | | tral ValveMitral valve appears structurally and functionally normal.Mild mitral | | regurgitation.Aortic ValveAortic valve and LVOT are structurally normal. Normal aortic | | valve flow bycolor and Doppler imaging. No aortic valve regurgitation.Tricuspid | | ValveStructurally normal tricuspid valve without significant stenosis orregurgitation. | | Unable to accurately assess RV systolic pressures in theabsence of significant tricuspid | | regurgitation.Pulmonic ValveNormal pulmonic valve structure and function. Normal | | pulmonary valve andRVOT flow by color and Doppler flow imaging.Left AtriumThe left | | atrium is mildly dilated.Left VentricleMildly dilated left ventricle.Normal left | | ventricular cavity size.Ejection fraction is visually estimated at 30-35%.Impaired | | relaxation compatible with diastolic dysfunction (reversed E/Aratio).Mild concentric | | left ventricular hypertrophy.There is a segmental wall motion abnormalities with severe | | hypokinesis ofthe entire anterior and anteroseptal region.Right AtriumMildly enlarged | | right atrial size.Right VentricleNormal right ventricular size.Right ventricle global | | systolic function is normal.TAPSE = 1.5 cm.Pericardial EffusionNo evidence of | | pericardial effusion.Pleural EffusionNo evidence of pleural effusion.MiscellaneousThe | | IVC is normal in size and collapses with inspiration.Aortic root dimension within normal | | limits.Valves Mitral Valve Tissue Doppler Septal e' Velocity: 0.80 m/s Aortic | | ValveStructures Left Atrium LA A/P Dimension: 5.1 cm LA Volume: 49 | | ml LA Vol/BSA Index: 23 mL/m^2 Left Ventricle Diastolic Dimension: 6.4 cm Septum | | Diastolic: 1 cm PW Diastolic: 0.9 cm EF [id number]% EF Calculated: 32% Miscellaneous | | Aorta Aortic Root: 3.4 cm | |hypokinesis of the entire anterior and anteroseptal region. Overall, left | |ventricular systolic function is moderately decreased. LVEF is 30-35%. | |3. Grade 1 left ventricular diastolic dysfunction. | |4. Mild mitral valve regurgitation. | |5. Normal right-sided pressure. | |6. Normal IVC with normal respiratory collapse. | |7. When compared to echocardiogram on 11/25/17, left ventricular systolic | |function continued to deteriorate. | | | |Signature | | | | Electronically signed by LAUREN FIGUEROA MD(Interpreting physician) on | | 04/05/2018 10:13 AM | | | | | |Findings | |Mitral Valve | |Mitral valve appears structurally and functionally normal. | |Mild mitral regurgitation. | |Aortic Valve | |Aortic valve and LVOT are structurally normal. Normal aortic valve flow by | |color and Doppler imaging. No aortic valve regurgitation. | |Tricuspid Valve | |Structurally normal tricuspid valve without significant stenosis or | |regurgitation. Unable to accurately assess RV systolic pressures in the | |absence of significant tricuspid regurgitation. | |Pulmonic Valve | |Normal pulmonic valve structure and function. Normal pulmonary valve and | |RVOT flow by color and Doppler flow imaging. | |Left Atrium | |The left atrium is mildly dilated. | |Left Ventricle | |Mildly dilated left ventricle. | |Normal left ventricular cavity size. | |Ejection fraction is visually estimated at 30-35%. | |Impaired relaxation compatible with diastolic dysfunction (reversed E/A | |ratio). | |Mild concentric left ventricular hypertrophy. | |There is a segmental wall motion abnormalities with severe hypokinesis of | |the entire anterior and anteroseptal region. | |Right Atrium | |Mildly enlarged right atrial size. | |Right Ventricle | |Normal right ventricular size. | |Right ventricle global systolic function is normal. | |TAPSE = 1.5 cm. | |Pericardial Effusion | |No evidence of pericardial effusion. | |Pleural Effusion | |No evidence of pleural effusion. | |Miscellaneous | |The IVC is normal in size and collapses with inspiration. | |Aortic root dimension within normal limits. | | | |Valves | | | | Mitral Valve | | | | Tissue Doppler | | | | Septal e' Velocity: 0.80 m/s | | | | Aortic Valve | | | |Structures | | | | Left Atrium | | | | LA A/P Dimension: 5.1 cm LA Volume: 49 ml | | LA Vol/BSA Index: 23 mL/m^2 | | | | Left Ventricle | | | | Diastolic Dimension: 6.4 cm | | Septum Diastolic: 1 cm | | PW Diastolic: 0.9 cm | | EF Qtwglsrmz00% | | EF Calculated: 32% | | | | Miscellaneous | | | | Aorta | | | | Aortic Root: 3.4 cm | + + + +---------+ + + | Performing | Address | City/State/Zipcode | Phone Number | | Organization | | | | + +---------+ + + | [facility] | | | | + +---------+ + + Device Interrogation (03/18/2018 8:00 AM PDT) + + + | Narrative | Performed At | + + + | Lauren THOMPSON | | MD [place] 03/18/2018 9:26 PATIENT NAME: Ron Chaudhary | | | Mike : 1955: AGE: 62 y.o. ICD Evaluation | | | Report March 18, 2018 Reason for evaluation: routineIndication for ICD: | | | ICD-10-CM ICD-9-CM 1. Implantable defibrillator | | | reprogramming/check Z45.02 V53.32 Device Interrogation 2. SAFETY INVESTIGATOR-D (AICD) | | | Medtronic 10/16/17 [facility] Stecker Z95.810 V45.02 Device Interrogation | | | 3. Ischemic cardiomyopathy I25.5 414.8 Device Interrogation 4. | | | Tachycardia R00.0 785.0 Device Interrogation Patient was seated and | | | reclined and device was interrogated. Defibrillator parameters, | | | battery status, percentages pacing and significant arrhythmias were | | | reviewed. Heart rate histograms were assessed for adequate heart rate | | | response and any alerts reviewed. Appropriate lead impedance testing | | | was performed. Pacing impedances were reviewed for any significant | | | changes. Sensing tests were performed by decreasing LRL. Adequacy of | | | pacing thresholds were tested by increasing LRL for each lead and | | | recorded for loss of capture. Final outputs were assessed for adequate | | | safety margins. Please see the scanned [facility] report and device PDF | | | for further details. Data collected by Kelly Rodriguez RN Underlying | | | rhythm: sinus rhythm 70 beats.0 mode switch episodes accounting for | | | 0% of the time. No episodes. No tachycardia therapies recommended or | | | delivered.PVC singles 1.1/hour PVC runs | | | 2.7/hourBiventricular pacing 98.3%Histogram good. Battery longevity | | | 9.6 years.Normal and stable device function.Quarterly remote | | | monitoring. Device interrogation due in office in 12 months. | | |assessed for adequate heart rate response and any alerts | | |reviewed. Appropriate lead impedance testing [...] + + | Performing | Address | City[facility]State/[facility] | Phone Number | | Organization | | | | + +---------+ + + | [facility] | | | | + +---------+ + + documented in this encounter Visit Diagnoses + + | Diagnosis | + + | Implantable defibrillator reprogramming/check - Primary Fitting and adjustment of | | automatic implantable cardiac defibrillator | + + | SAFETY INVESTIGATOR-D (AICD) [employer]tronic 10/16/17 [facility] | + + | Ischemic cardiomyopathy Other specified forms of chronic ischemic heart disease | + + | Tachycardia Tachycardia, unspecified | + + documented in this encounter
--- OUTSIDE RECORDS SUMMARY | ~2020-03-04 | XMS | Encounter Summary ---
Demographics + + + | Address | [address] | | | [place] [address] | + + + | Home Phone | | + + + | Preferred Language | Unknown | + + + | Marital Status | | + + + | Amish Affiliation | Unknown | + + + [...] [place], [place] | | | | | [address] | | + + + + + Care Team Providers + +------+ + | Care Industrial Controller Name | Role | Phone | [...] | | involving | [address] | [place] | | | | | [place] | [address] | [place] | | | | | coronary | [address] | [address] | | | | | artery of | Phone: | Phone: | | | | | [place] heart | [phone] | [phone] | | | | | without | Fax: | Fax: | | | | | angina | [phone] | [phone] | | | | | pectoris | | | +--------+ + + + + + Encounter Details +--------+---------+ + + + | Date | Type | Department | Care Team | Description | +--------+---------+ + + + | 12/07/ | Office | [facility] | Randy Figueroa, | Coronary artery | | 2019 | Visit | [facility] | MD [address] | disease involving | | | | RE[address] | [place], | [place] coronary | | | | [address] [place] | [place] [address] | artery of [place] | | | | [place] [address] | [phone] | heart without angina | | | | [phone] | | pectoris (Primary | | | [...] of this encounter Progress Gael Ortega - 12/07/2018 10:00 AM PDT [facility] [address] [place] [address] Cardiac Rehab Date: 12/07/2018 Patient Information Patient Name: Bob Will Date of : 1955 Age: 63 y.o. Encounter Diagnoses Code Name Primary? I25.10 Coronary artery disease involving [place] coronary artery of [place] heart without angina pectoris Yes Z98.61 Post PTCA Number of Visits Approved: 34 kx Taken Medications Today? Yes Any Changes in Medications? No Any Problems to Report? No Adjusted his medication schedule in an attempt to keep his BP within normal range. No complaints with exertion. Patient drives from a distance so informs us that next week wi ll be his last week. Ventricular paced rhythm without ectopy. Pre O2: 97%, SBP prior to exercise 108/62; during exercise 120/70. Post fluid intake before discharge 88/52. Compliant with medications and therapeutic lifestyle changes. Continue monitored exercise. Any abnormal vital signs or rhythm strips will be reported in progress note. Electronically signed by: Gael Woo, 12/07/2018 14:23 Patient Name: Bob Will/: 1955/ ly signed by Gael Woo at 12/07/2018 2:24 PM PDTdocumented in this encounter Plan of [...] [place] | | | | | | [address] | | | | | | | | +--------+ + + + + | 04/16/ | Office | Cardiology | Alin Anderson | | | 2019 | Visit | | MD [address] | | | | | | [address] | | | | | | [place] [address] | | | | | | [phone] | | | | | | | [...] [place] | | | | | | [address] | | | | | | | | +--------+ + + + + documented as of this encounter Visit Diagnoses + + | Diagnosis | + + | Coronary artery disease involving [place] coronary artery of [place] heart without | | angina pectoris - Primary | + + | Post PTCA Postsurgical percutaneous transluminal coronary angioplasty status | + + documented in this encounter"
--- OUTSIDE RECORDS SUMMARY | ~2020-03-04 | XMS | Encounter Summary ---
Demographics + + + | Address | [address] | | | [place] [address] | + + + | Home Phone | | + + + | Preferred Language | Unknown | + + + | Marital Status | | + + + | Pentecostalism Affiliation | Unknown | + + + [...] [place] | | | | | [address] | | + + + + + Care Team Providers + +------+ + | Care Rock Wool Insulator Name | Role | Phone | + [...] | | | heart | [place], | [place] | | | | | failure | [place] [address] | [place] | | | | | (HCC) | Phone: | [address] | | | | | I50.22 | [phone] | Phone: | | | | | Procedures | Fax: | [phone] | | | | | Cardiac | [phone] | Fax: | | | | | Rehab | | [phone] | +--------+--------+ + + + + Encounter Details +--------+---------+ + + + | Date | Type | Department | Care Team | Description | +--------+---------+ + + + | 07/12/ | Office | [facility] | Amy Olivares V, | Chronic systolic CHF | | 2019 | Visit | [facility] | MD [address] | (congestive heart | | | | REHABILITATION [address] | [address] [place], [place] | failure) ([facility]) | | | | [address] [place] | [id number] | | | | | [place] [address] | | | | | | [phone] | | | +--------+---------+ + + + [...] documented as of this encounter Progress Notes Lorelei Cruz RRT - 07/12/2019 12:00 PM PSTFormatting of this note might be different fr om the original. [facility] [address] [place] [address] Cardiac Rehab Date: 07/12/2019 Patient Information Patient Name: Bob Will Date of : 1955 Age: 63 y.o. Encounter Diagnoses Code Name Primary? I50.22 Chronic systolic CHF (congestive heart failure) ([facility]) Number of Visits Approved: 34 kx Taken Medications Today? Yes Any Changes in Medications? No Any Problems to Report? No No complaints with exertion. Ventricular paced rhythm without ectopy. Pre O2: 100%, Durin%, SBP prior to exercise 9 8/58; during exercise 84/58, post exercise: 90/56. Compliant with medications and therapeutic lifestyle changes. Continue monitored exercise. Patient complained today of lightheadedness and is visiting wi th his provider to adjust Metoprolol. Any abnormal vital signs or rhythm strips will be reported in progress note. Electronically signed by: Lorelei Cruz RRT, 07/12/2019 10:58 Patient Name: Bob Will/: 1955/ ly signed by Lorelei Cruz RRT at 07/12/2019 10:59 AM PSTdocumented in this encounter Plan of Treatment +--------+ + + + + | Date | Type | Specialty | Care Team | Description | +--------+ + + + + | 03/12/ | Office | Nephrology | Litzy, | | | 2019 | Visit | | ADARSH [address] | | | | | | [address] [facility] | | | | | | [address] [place] | | | | | | [address] | | | | | | | | +--------+ + + + + | 04/16/ | Office | Cardiology | Alin Anderson | | | 2019 | Visit | | MD [address] | | | | | | [address] | | | | | | [place] [address] | | | | | | [phone] | | | | | | | [...] [place] | | | | | | [id number] | | | | | | | | +--------+ + + + + documented as of this encounter Visit Diagnoses + + | Diagnosis | + + | Chronic systolic CHF (congestive heart failure) (HCC) | + + documented in this encounter"
--- OUTSIDE RECORDS SUMMARY | ~2020-03-04 | XMS | Encounter Summary ---
Demographics + + + | Address | [address] | | | [place] [address] | + + + | Home Phone | | + + + | Preferred Language | Unknown | + + + | Marital Status | | + + + | Advent Affiliation | Unknown | + + + | Race | Unknown | + + + | Ethnic Group | Unknown | + + + Author + + + | Author | [facility] | | | and [place] | + + + | Organization | [facility] | | | and [place] | + + + | Address | Unknown | + + + | Phone | Unavailable | + + + Support + + + + + | Name | Relationship | Address | Phone | + + + + + | [place] Will | ECON | [place] | | | | | [address] | | + + + + + Care Team Providers + +------+ + | Care News Technical Director Name | Role | Phone | [...] | | | | | unspecified | [address] | [address] | | | | | HF | [place], | [place] | | | | | chronicity, | [place] [address] | [place], [place] | | | | | unspecified | Phone: | [phone] | | | | | heart | [phone] | Phone: | | | | | failure type | Fax: | [phone] | | | | | (HCC) | [phone] | Fax: | | | | | Procedures | | [phone] | | | | | [place] | | | | | | | [...] | + + + | Follow-up | 3-4 week | + + + | Cardiomyopathy | | + + + | Coronary Artery | | | Disease | | + + + Follow Up [...] | | Young Barajas DO | MD Randy | | | | | Atherosclero | [address] | [address] | | | | | tic heart | [address] | [address] | | | | | disease of | [address] | [place], | | | | | [place] | [address] | [place] [address] | | | | | coronary | [place] | Phone: | | | | | artery | [phone] | [phone] | | | | | without | Phone: | Fax: | | | | | angina | [phone] | [phone] | | | | | pectoris ST [...] Description | +--------+---------+ + + + | 04/09/ | Office | [facility] | Randy Figueroa, | Coronary artery | | 2018 | Visit | CARDIOLOGY [address] | [address] | disease involving | | | | [place], | [place], | [place] coronary | | | | [place] [address] | [place] [address] | artery of [place] | | | | [phone] | [phone] | heart without angina | | | [...] | | | failure type (HCC) | +--------+---------+ + + + Social [...] + + + | Blood Pressure | 110/60 | 04/09/2018 8:06 AM | | | | | PDT | | + + + + + | Pulse | 60 | 04/09/2018 8:06 AM | | | | | PDT | | + + + + + | Temperature | - | - | | + + + + + | Respiratory Rate | 16 | 04/09/2018 8:06 AM | | | | | PDT | | + + + + + | Oxygen Saturation | - | - | | + + + + + | Inhaled Oxygen | - | - | | | Concentration | | | | + + + + + | Weight | 98 kg (216 lb) | 04/09/2018 8:06 AM | | | | | PDT | | + + + + + | Height | 177.8 cm (5' 10") | 04/09/2018 8:06 AM | | | | | PDT | | + + + + + | Body Mass Index | 30.99 | 04/09/2018 8:06 AM | | | | | PDT | | + + + + + documented in this encounter Patient Instructions Patient Instructions Suzanne Cheng RN - 04/09/2018 8:30 AM PDT Stop Lisinopril for 3 days then start Entresto 49/51 mg twice a day Check blood pressure and pulse twice a day for 2 weeks, mail in envelope provided Blood test: Non-fasting Date Due: 1 week Where to go for labs: Lab of your choice, please see lab orders, take them with you to the lab. Referral To cardiac rehab, some one from that department will call and schedule with you Follow up appointment: 3-4 weeks Provider: ADARSH Stevens Date: Check-In Time: documented in this encounter Progress Notes Randy Figueroa MD - 04/09/2018 8:30 AM PDTFormatting of this note might be different f rom the original. PATIENT NAME: Bob Will : 1955: AGE: 62 y.o. PRIMARY CARE: Chato Matson MD OUTPATIENT FOLLOW UP VISIT Date of Service: 04/09/2018 HISTORY OF PRESENT ILLNESS: Bob Will is a 62 y.o. male with a history of coronary artery disease post recent anterior wall MS, post PTCA and stents of the left main, LAD and LCx on 03/15/17, cardiac shoc k, left atrial appendage thrombus, recent status post stents to , HOME CARE PHYSICAL THERAPIST-D placement in [facility] on 10/17/2017. He is being seen today for follow up for coronary artery disease, cardiomyopat hy. He was last seen 03/18/2018 at which time patients lisinopril was increased to 20 mg twice a day and schedule for an echocardiogram. Since that time, he has been feeling well but is ph ysically inactive. He spends most of the time sitting watching TV. There is no chest pain or chest discomfort both at rest and on exertion. Patient denies breathlessness. There is no palpitations, dizziness or lightheadedness. There is no ankle or leg swelling. Patient can sleep on one pillow at night without difficulty breathing. MEDICAL, SURGICAL, AND PERSONAL HISTORY Past Medical, Surgical, Family, and Social History are reviewed in EPIC. CURRENT PROBLEMS Patient Active Problem List Diagnosis Acute anterior wall MS Coronary artery disease involving [place] coronary artery of [place] heart without angina pectoris Ischemic cardiomyopathy Pulmonary edema HOME CARE PHYSICAL THERAPIST-D (AICD) [employer] 10/16/[address] [facility] Stecker Implantable defibrillator reprogramming/check H/O atrial flutter Tachycardia GERD (gastroesophageal reflux disease) PAD (peripheral artery disease) CURRENT MEDICATIONS Current Outpatient Prescriptions Medication Sig Dispense Refill aspirin 81 MG tablet Take 81 mg by mouth Daily. atorvaSTATin (LIPITOR) 80 MG tablet Take 1 tablet by mouth nightly. 30 tablet 5 Cholecalciferol (VITAMIN D-3) 85090 units CAPS Take by mouth Once a [...] for Pain (Pain).) 0 lisinopril (PRINIVIL, ZESTRIL) 20 mg tablet Take 1 tablet by mouth 2 times daily. 60 ta blet 5 metFORMIN (GLUCOPHAGE) 500 mg tablet Take 500 [...] Respiratory: Negative for shortness of breath. Cardiovascular: Negative for chest pain, palpitations and leg swelling. Neurological: Negative for dizziness and weakness. Lightheaded = No OBJECTIVE: PHYSICAL EXAM BP 110/60 | Pulse 60 | Resp 16 | Ht 1.778 m (5' 10") | Wt 98 kg (216 lb) | BMI 30.99 k g/m Physical Exam Constitutional: He is oriented to person, place, and time. He appears well-developed and we ll-nourished. Male individual arrives with his , without acute distress. Neck: Normal carotid pulses and no JVD present. Carotid bruit is not present. Cardiovascular: [...] RESULTS reviewed during visit today primarily from [facility]: LIPID Lab Results Component Value Date LDLEX 42 10/10/2017 HDLEX 21 10/10/2017 TRIGEX 131 10/10/2017 CHOLEX 89 10/10/2017 CHEMISTRY Lab Results Component Value Date GLU 107 10/09/2017 GLUEX 135 (A) 03/26/2018 NA 136 10/09/2017 NAEX 140 03/26/2018 K 3.5 10/09/2017 KEX 4.3 03/26/2018 CL 105 10/09/2017 CLEX 104 03/26/2018 CO2 24 10/09/2017 CO2EX 20 03/26/2018 CALCIUM 8.2 (L) 10/09/2017 ALKPHOS 89 10/03/2017 AST 77 (H) 10/03/2017 ASTEX 13 03/15/2017 ALT 29 10/03/2017 ALTEX 24 03/15/2017 BILITOT 0.6 10/03/2017 CREA 1.23 10/09/2017 BUN 26 (H) 10/09/2017 EGFREX 39 (A) 03/26/2018 CREEX 1.76 (A) 03/26/2018 HEMATOLOGY Lab Results Component Value Date WBC [...] shock requiring IABP, pressor (dopa mine, norepinephrine). [facility] on divert. Patient wasn't transferred to [facility]. B. Echocardiogram 03/17/2017 shows LV ejection fraction is severely de creased, visually estimated left ventricular ejection fraction is 20 - 25%, left ventricular systolic thickening is segmentally abnormal,mildly reduced RV systolic function. Normal R V size, no significant valvular abnormalities seen, compared to the most recent exam dated, 03/15/2017, there is no significant changes C. At [facility], patient had another STEMI code 03/29, with [...] to follow up closely with a local coater associate in [place] . He wias dischargeed with a LifeVest [...] we will tr ansfer the patient to [facility] for consideration of urgent coronary revascularization. J. [...] optimal medical care for ischemic cardiomyopathy M. Echocardiogram 04/02/2018 shows mild biatrial dilatation, mild left ventricular dilatat ion with mild eccentric left ventricular hypertrophy, there is a segmental wall motion abnor mality with severe hypokinesis of the entire anterior and anteroseptal region. Overall, left ventricular systolic function is moderately decreased. LVEF is 30-35%, grade 1 left ventric ular diastolic dysfunction, mild mitral valve regurgitation, normal right-sided pressure, no rmal IVC with normal respiratory collapse, when compared to echocardiogram on 11/25/17, left ventricular systolic function continued to deteriorate. N. Today, patient is feeling well from cardiac standpoint. He is asymptomatic but physica lly inactive. There is no signs and symptoms of overt congestive heart failure. He is in a class I of [place] [employer] functional class. There is no fluid retention on phy sical examination. It appears that lisinopril is not working well enough to improve his left ventricular syst olic function. 2. Ischemic Cardiomyopathy: Heart failure with reduced [...] myocardium in these regions. C. S/P [employer] HOME CARE PHYSICAL THERAPIST-D 10-16-17 Dr Darby, [facility]. Ice interrogation today shows one episode of [...] respiratory collapse. E. Heart failure is well compensated but LVEF remains low. 3. Ventricular tachycardia: A. Electrophysiology Study 10/16/17 shows positive EP study for inducible ventric ular tachycardia. B. He denies any symptoms. 4. Left atrial appendage thrombus. Not addressed today. A. Noted on MARKY in the OR during ECMO decannulation. Completedhep jennie gtt bridge 03/29 to therapeutic warfarin. Not on warfarin any more, no evidence of throm bus in last echocardiogram 5. Paroxysmal atrial flutter. Not addressed today. A. Episode was seen while vision was hospitalized a week ago. This was after h is MS and at the same time patient was having ventricular tachycardia. He was initiated on amiodarone and then discontinued before discharge. The plan is to monitor through his device and see if this is a problem that needs to be addressed. Patient is not on anticoagulation he was left that way from [facility]. Patient has had several GI bleeds and he felt at that poin t that he is bleeding risk are higher therefore they will be possibility of reinitiating ant icoagulation if patient has more episodes of paroxysmal atrial flutter. 6. Positive screening for PAD. Not addressed today. A. Vas segmental pressures legs 11/24/2017 abnormal left ankle brachial index of 0.91 consi stent with single segment disease. 7. Normocytic anemia 8. Stage III chronic kidney disease A. eGFR is 39 from 03/26/2018. PLAN: 1. Stop lisinopril. 2. Start Entresto mg 49/51 twice a day to increase the chance to improve left ventricular s ystolic function. 3. Check blood pressure x 2 weeks. Check [place] in 1 week. 4. Enroll patient into phase II cardiac rehab program. 5. I recommend a therapeutic lifestyle change including walking 30 minutes a day, choosing healthy choices of diet , including DASH diet and weight reduction. 6. Follow-up in three to four weeks with ADARSH Stevens to adjust medication. I, Heather Cui, am acting as a scribe on behalf of, and in the presence of Randy morgan MD. I have reviewed and edited this note. Heather Cui, Medical Photographer 04/09/2018 I, Randy Figueroa MD, personally performed the services described in this documentation, as scribed in my presence and it is both accurate and complete. Heather Cui, Med Ass t 04/09/2018 8:28 Electronically signed by: Randy Figueroa MD [facility] 04/09/2018 Portions of this chart may have been created with [employer] voice recognition software. Occasi onal wrong-word or sound-alike substitutions may have occurred due to the inherent canseco itations of voice recognition software. Please read the chart carefully and recognize, using context, where these substitutions have occurred documented in this encounter Plan of Treatment +--------+ + + + + | Date | Type | Specialty | Care Team | Description | +--------+ + + + + | 03/12/ | Office | Nephrology | [facility], | | | 2019 | Visit | | ADARSH [address] | | | | | | [address] [facility] [facility] | | | | | | [address] [place] | | | | | | [id number] | | | | | | | | +--------+ + + + + | 04/16/ | Office | Cardiology | Alin Anderson | | | 2019 | Visit | | MD Cheryl Arreguin | | | | | | [address] | | | | | | [place] [address] | | | | | | [phone] | | | | | | | [...] [place] | | | | | | [address] | | | | | | | | +--------+ + + + + + +------+--------+ + + | Name | Type | Priori | Associated Diagnoses | Order Schedule | | | | ty | | | + +------+--------+ + + | Basic Metabolic | Lab | Routin | Ischemic | Expected: | | Panel | | e | cardiomyopathy | 04/09/2018, Expires: | | | | | | 04/09/2019 | + +------+--------+ + + + + +--------+ + + | Name | Type | Priori | Associated Diagnoses | Order Schedule | | | | ty | | | + + +--------+ + + | Referral to Cardiac | Outpatient | Routin | Heart failure, | 1 Occurrences | | Rehab | Referral | e | unspecified HF | starting 04/09/2018 | | | | | chronicity, | until 04/09/2019 | | | | | unspecified heart | | | | | | failure type (HCC) | | + + +--------+ + + documented as of this encounter Visit Diagnoses + + | Diagnosis | + + | Coronary artery disease involving [place] coronary artery of [place] heart without | | angina pectoris - Primary | + + | Ischemic cardiomyopathy Other specified forms of chronic ischemic heart disease | + + | Heart failure, unspecified HF chronicity, unspecified heart failure type (HCC) | + + documented in this encounter
--- OUTSIDE RECORDS SUMMARY | ~2020-03-04 | XMS | Encounter Summary ---
Demographics + + + | Address | [address] | | | [place] [address] | + + + | Home Phone | | + + + | Preferred Language | Unknown | + + + | Marital Status | | + + + | [employer] Affiliation | Unknown | + + + [...] [place], [place] | | | | | [address] | | + + + + + Care Team Providers + +------+ + | Care Pan Shaker Name | Role | Phone | + +------+ + | Chato Matson MD | PCP | | + +------+ + Reason for Visit + +--------+ + | Reason | Onset | Comments | | | Date | | + +--------+ + | Medication Refill | 08/06/ | | | | 2017 | | + +--------+ + Encounter Details +--------+--------+ + + + | Date | Type | Department | Care Team | Description | +--------+--------+ + + + | 08/06/ | Refill | [facility] | Randy Figueroa, | Medication Refill | | 2017 | | CARDIOLOGY [address] | MD [address] [place] | | | | | [place], | [place], | | | | | [place] [address] | [place] [address] | | | | | [phone] | [phone] | | | | | | | [...] | | | | [address] [place] | | | | | | [id number] | | | | | | | | +--------+ + + + + | 04/16/ | Office | Cardiology | Alin Anderson | | | 2019 | Visit | | MD [address] | | | | | | [address] | | | | | | [place] [address] | | | | | | [phone] | | | | | | | [...] [place] | | | | | | [address] | | | | | | | | +--------+ + + + + documented as of this encounter Visit Diagnoses Not on filedocumented in this encounter"
--- OUTSIDE RECORDS SUMMARY | ~2020-03-04 | XMS | Encounter Summary ---
Demographics + + + | Address | [address] | | | [place] [address] | + + + | Home Phone [...] [place], [place] | | | | | [address] | | + + + + + Care Team Providers + +------+ + | Care Electric Tool Repairer Name | Role | Phone | + +------+ + PCP | Unavailable | + +------+ + Encounter Details +--------+ + + + + | Date | Type | Department | Care Team | Description | +--------+ + + + + | 12/02/ | Abstract | [facility] [place] | Jenny, | | | 2018 | | CARDIOLOGY [address] | ADARSH Santo [address] | | | | | [place], | [place], | | | | | [place] [address] | [place] [address] | | | | | [phone] | [phone] | | | | | | | [...] [place] | | | | | | [address] | | | | | | | | +--------+ + + + + | 04/16/ | Office | Cardiology | Alin Anderson | | | 2019 | Visit | | MD Cheryl Arreguin | | | | | | [address] | | | | | | [place] [address] | | | | | | [phone] | | | | | | | [...] [place] | | | | | | [address] | | | | | | | [...]
--- OUTSIDE RECORDS SUMMARY | ~2020-03-04 | XMS | Encounter Summary ---
Demographics + + + | Address | [address] | | | [place] [address] | + + + | Home Phone [...] [place], [place] | | | | | [address] | | + + + + + Care Team Providers + +------+ + | Care Choreography Director Name | Role | Phone | + +------+ + PCP | Unavailable | + +------+ + Reason for Visit + + + | Reason | Comments | + + + | Follow-up | | + + + Encounter Details +--------+---------+ + + + | Date | Type | Department | Care Team | Description | +--------+---------+ + + + | 10/19/ | Office | [facility] | Jenny, | Ischemic | | 2018 | Visit | CARDIOLOGY [address] | ADARSH Santo [address] | cardiomyopathy | | | | [place], | [place], | (Primary Dx); | | | | [place] [address] | [place] [address] | Coronary artery | | | | [phone] | [phone] | disease involving | | | | | | yocha dehe coronary | | | | | | artery of yocha dehe | | | | | | heart without angina | | | | | | pectoris; Acute | | | | | | anterior wall NE | | | | | | (HCC); RESIDENTIAL DRIVER-D (AICD) | | | | | | [employer] 10/16/17 | | | | | | EULOGIO Darby; | | | | | | Tachycardia [...] + + + | Blood Pressure | 120/72 | 10/19/2017 1:40 PM | | | | | PST | | + + + + + | Pulse | 72 | 10/19/2017 1:40 PM | | | | | PST | | + + + + + | Temperature | - | - | | + + + + + | Respiratory Rate | 16 | 10/19/2017 1:40 PM | | | | | PST | | + + + + + | Oxygen Saturation | - | - | | + + + + + | Inhaled Oxygen | - | - | | | Concentration | | | | + + + + + | Weight | 89.5 kg (197 lb 5 | 10/19/2017 1:40 PM | | | | oz) | PST | | + + + + + | Height | 177.8 cm (5' 10") | 10/19/2017 1:40 PM | | | | | PST | | + + + + + | Body Mass Index | 28.31 | 10/19/2017 1:40 PM | | | | | PST | | + + + + + documented in this encounter Patient Instructions Patient Instructions Lilian Machado RN - 10/19/2017 1:30 PM PST Follow up appointment: wound check Provider: ALFONSO Date: Check-In Time: Follow up appointment: 2-3 weeks Provider: ADARSH Stevens Date: Check-In Time: Cardiac Rehab - someone from Rehab will call you to arrange an appointmentElectronically si gned by Lilian Machado RN at 10/19/2017 2:39 PM PST documented in this encounter Progress Notes Hansa Alvarado ARNP - 10/19/2017 1:30 PM PSTFormatting of this note might be differen t from the original. PATIENT NAME: Bob Will : 1955: AGE: 61 y.o. PRIMARY CARE: Chato Matson MD OUTPATIENT FOLLOW UP VISIT Date of Service: 10/19/2017 HISTORY OF PRESENT ILLNESS: Bob Will is a 61 y.o. male with a history of coronary artery disease post recent anterior wall NE, post PTCA and stents of the left main, LAD and LCx on 03/15/17, cardiac shoc k, left atrial appendage thrombus, recent status post stents to , RESIDENTIAL DRIVER-D placement in [facility] on 10/17/2017. He was last seen 09/02/17 at which time he was told to increase Lisinopril 5 mg in the mor saul and 10 mg in the evening, CMP and lipid in 2 weeks, check blood pressure and pulse twi ce daily for two weeks and return the log to our office, Positive screening for PAD will do AN, recheck echocardiogram in 3 months, follow up in 3 months Since that time, he had another myocardial infarction that required another intervention an d stents to the . 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 He was then transferred to [facility] where he received a RESIDENTIAL DRIVER-D for EF 30-35% and EP study with induc ible VT. He was at one point on amiodarone drip but this was discontinued while still hospit alized. The plan was to restart it if device interrogation showed any more activity of vent ricular tachycardia. At that time He was discharged 2 days ago. Today, patient states he is doing "better". He still feels tired and fatigued but he has had no chest pain or shortness of breath. He has had no lightheadedness or dizziness or palpitations. He has not had any le g swelling and overall he feels well. MEDICAL, SURGICAL, AND PERSONAL HISTORY Past Medical, Surgical, Family, and Social History are reviewed in EPIC. CURRENT PROBLEMS Patient Active Problem List Diagnosis Acute anterior wall NE CAD (coronary artery disease) Ischemic cardiomyopathy Pulmonary edema CURRENT MEDICATIONS Current Outpatient Prescriptions Medication Sig Dispense Refill aspirin 81 MG tablet Take 81 mg by mouth Daily. atorvaSTATin (LIPITOR) 40 mg tablet Take 40 mg by mouth nightly. carvedilol (COREG) 3.125 mg tablet Take 1 tablet by mouth 2 times daily (with breakfast & dinner). 60 tablet Cholecalciferol (VITAMIN D-3) 06358 units CAPS Take by mouth Once a week. clopidogrel (PLAVIX) 75 mg tablet Take 1 tablet by mouth Daily. 90 tablet 3 gabapentin (NEURONTIN) 300 mg capsule Take 300 mg by mouth 3 times daily. HYDROcodone-acetaminophen (NORCO) 5-325 mg per tablet Take 1-2 tablets by mouth every 4 hours as needed for Pain (Pain). 0 lisinopril (PRINIVIL, ZESTRIL) 10 mg tablet Take 10 mg by mouth Daily. lisinopril (PRINIVIL, ZESTRIL) 5 mg tablet Take 5 mg by mouth Daily. metoprolol tartrate (LOPRESSOR) 25 mg tablet Take 25 mg by mouth Daily. nitroglycerin (NITROSTAT) 0.[address] 1 tablet under the tongue every 5 shai janeth as needed for Chest pain. 0 nystatin (MYCOSTATIN) powder Genital region pantoprazole (PROTONIX) 40 mg tablet Take 1 tablet by mouth 2 times daily (before meals ). 30 tablet raNITIdine (ZANTAC) 300 MG capsule Take 300 mg by mouth every evening. traMADol (ULTRAM) 50 mg tablet Take 50 mg by mouth every 6 hours as needed. No current facility-administered medications for this visit. ALLERGIES No Known Allergies ROS Review of Systems Constitutional: Negative for malaise/fatigue. HENT: Negative for nosebleeds. Respiratory: Negative for cough and shortness of breath. Cardiovascular: Negative for chest pain and palpitations. Musculoskeletal: Negative for myalgias. Neurological: Negative for dizziness, weakness and headaches. OBJECTIVE: PHYSICAL EXAM BP 120/72 | Pulse 72 | Resp 16 | Ht 1.778 m (5' 10") | Wt 89.5 kg (197 lb 5 oz) | BMI 28.31 kg/m Physical Exam Constitutional: He is oriented [...] or performed during the hospital encounter of 10/19/17 ECG 12 lead Result Value Ref Range INTERPRETATION TEXT normal sinus rhythm with an intraventricular block heart rate of 87 bpm LAB RESULTS reviewed during visit today primarily from [facility]: LIPID No results found for: CHOL, TRIG, HDL, LDL, CHOLHDL, LDLEX, HDLEX, TRIGEX, CHOLEX CHEMISTRY Lab Results Component Value Date GLU 107 10/09/2017 GLUEX 145 (A) 03/15/2017 NA 136 10/09/2017 NAEX 136 03/15/2017 K 3.5 10/09/2017 KEX 3.7 03/15/2017 CL 105 10/09/2017 CLEX 104 03/15/2017 CO2 24 10/09/2017 CO2EX 25 03/15/2017 CALCIUM 8.2 (L) 10/09/2017 ALKPHOS 89 10/03/2017 AST 77 (H) 10/03/2017 ASTEX 13 03/15/2017 ALT 29 10/03/2017 ALTEX 24 03/15/2017 BILITOT 0.6 10/03/2017 CREA 1.23 10/09/2017 BUN 26 (H) 10/09/2017 EGFREX 49 03/15/2017 CREEX 1.46 (A) 03/15/2017 HEMATOLOGY Lab Results Component Value Date WBC 10.9 10/07/2017 WBCEX 9.1 03/15/2017 HGB 14.3 10/07/2017 HGBEX 16.5 03/15/2017 HCT 43.3 10/07/2017 HCTEX 46.8 03/15/2017 PLT 178 10/07/2017 PLTEX 194 03/15/2017 I reviewed records from [facility] for hospitalization,including H&P, Discharge Summary and lab r eports on 10/2017 and records from [facility] from hospitalization on 09/2017 w hich is summarized in the HPI. Transthoracic Echocardiogram 10/11/17 shows the left ventricular cavity size is normal , the LV function is severely abnormal, left ventricular systolic thickening is segment ally abno rmal, visually estimated left ventricular ejection fraction is 30-35%, RV cavity size is no rmal, RV global systolic function is mildly reduced, there is mild dial ation of the as send ing aorta, compared to the most recent exam dated 03/30/17, the LVFF is similar. Angiogram done by Dr. Gomez/Vandana on 10/03/2017 shows Systemic hypotension, upper normal left ventricular end-diastolic pressure. Severe in-stent stenosis of left main to ostial LAD stent. Severe in-stent stenosis ostial proximal left circumflex stent. Mild to moderate RC A disease.ANNA grade 1 flow to distal LAD Transthoracic Echocardiogram 10/11/17 shows the left ventricular cavity size is normal , the LV function is severely abnormal, left ventricular systolic thickening is segment ally abno rmal, visually estimated left ventricular ejection fraction is 30-35%, RV cavity size is no rmal, RV global systolic function is mildly reduced, there is mild dial ation of the as send ing aorta, compared to the most recent exam dated 03/30/17, the LVFF is similar. Cardiac Cath ordered by Arya Christian 10/15/17 shows successful percutaneous coronary co ntinue aggressive cardiac risk factor management , intervention to the ostial left circumfle x with one 3.0 x 18 mm resolute oseas drug - eluting stent , successful percutaneous coronary transluminal angioplasty of the distal left main extending into the left anterior descendi ng coronary artery with a final kissing balloon inflation with a 3.5 mm noncompliant and 2.5 mm complaint balloon, recommendations ; continue clopidogrel 75 mg daily for at least 12 mo nths , therapy given bifurcation and left main stenting with multiple stent layers if kunal ating , continue with Asprin 81 mg daily indefinitely , continue aggressive cardiac risk man agement , optimal medical care for ischemic cardiomyopathy S/P [employer] RESIDENTIAL DRIVER-D 10-16-17 Dr Darby, [facility] Above data and testing is reviewed this [...] shock requiring IABP, pressor (dopamine, norepin ephrine). [facility] were on divert. Patient wasn't transferred to [facility]. B. Echocardiogram 03/17/2017 shows LV ejection fraction is severely decreased, vi sually estimated left ventricular ejection fraction is 20 - 25%, left ventricular systolic t hickening is segmentally abnormal, mildly reduced RV systolic function. Normal RV size, no s ignificant valvular abnormalities seen, compared to the most recent exam dated, 03/15/2017, there is no significant changes C. At [facility], patient had another STEMI [...] to follow up closely with a local professor of criminal justice in [place]. He wias dis chargeed with a LifeVest [...] LVEF is 50-55%, Normal valvular structure, Mild pulmonary hyper tension with a peak systolic pressure 40-45 mmHg,Normal IVC with normal respiratory collapse ,When compared to echocardiography on 05/07/17, left ventricular systolic function is signifi cantly improved and now normalized. H. Echocardiogram 10/03/17 shows the number of aortic valve leaflets cannot be identified, the left atrium is mildly dilated, normal left ventricular cavity size, mild concentric left ventricular hypertrophy, ejection fraction is visually estimated at 40%, thinning and sever e hypokinesis distal anterior, anterior septal, and apical segments, aortic root dimension w ithin normal limits, mild mitral regurgitation present, no evidence of any pericardial effus ion, the pulmonic valve was not well visualized, normal right atrial size, normal right vent ricular size and function, structurally normal tricuspid valve without significant stenosis or regurgitation, Insufficient amount of tricuspid regurgitation for estimation of pulmonary artery pressures, when compared with images of previous echo 06/04/17, no significant change s. I. On 10/03/2017 the patient is presenting with fever, leukocytosis, possible pneumonitis on chest x-ray, and high grade ostial LAD and circumflex in-stent stenoses with new left bun dle branch block and elevated troponin. The patient's primary illness may be pneumonitis wi th septic shock with resulting hypotension causing myocardial ischemia. The patient will re quire coronary revascularization at some point. I recommend that we continue treating the p atient with broad-spectrum antibiotics, fluid support, ventilatory support and pressors as n eeded. The patient's left ventricular filling pressures and unchanged left ventricular func tion and echocardiogram do not suggest acute cardiac decompensation as his primary reason fo r hypotension. If the patient shows signs of cardiac instability we will transfer the patie nt to [facility] for consideration of urgent coronary revascularization. J. Angiogram done by Dr. Gomez/Vandana on 10/03/2017 shows Systemic hypotension, upper nor mal left ventricular end-diastolic pressure. Severe in-stent stenosis of left main to ostial LAD stent. Severe in-stent stenosis ostial proximal left circumflex stent. Mild to moderat e RCA disease.ANNA grade 1 flow to distal LAD K. Transthoracic Echocardiogram 10/11/17 shows the left ventricular cavity size is normal , the LV function is severely abnormal, left ventricular systolic thickening is segment ally a bnormal, visually estimated left ventricular ejection fraction is 30-35%, RV cavity size is normal, RV global systolic function is mildly reduced, there is mild dial ation of the as s ending aorta, compared to the most recent exam dated 03/30/17, the LVFF is similar. L. Cardiac Cath ordered by Arya Christian 10/15/17 shows successful percutaneous coronary continue aggressive cardiac risk factor management , intervention to the ostial left circumf lucia with one 3.0 x 18 mm resolute oseas drug - eluting stent , successful percutaneous ordaz ry transluminal angioplasty of the distal left main extending into the left anterior descen ding coronary artery with a final kissing balloon inflation with a 3.5 mm noncompliant and 2 .5 mm complaint balloon, recommendations ; continue clopidogrel 75 mg daily for at least 12 months , therapy given bifurcation and left main stenting with multiple stent layers if amisha erating , continue with Asprin 81 mg daily indefinitely , continue aggressive cardiac risk m anagement , optimal medical care for ischemic cardiomyopathy M. Today, patient is tired and fatigued. He has no angina or dyspnea. He has not been very physical active, he just got discharged 2 days ago. There is no signs and symptoms of over t congestive heart failure. He is in a class II of [employer] functional cl ass. Heart failure stage C. There is no fluid retention on physical examination. 2. Cardiomyopathy: A. Transthoracic Echocardiogram 10/11/17 shows the left ventricular cavity size is normal , the LV function is severely abnormal, left ventricular systolic thickening is segment ally a bnormal, visually estimated left ventricular ejection fraction is 30-35%, RV cavity size is normal, RV global systolic function is mildly reduced, there is mild dial ation of the as s ending aorta, compared to the most recent exam dated 03/30/17, the LVFF is similar. B. Pet Scan 10/13/17 shows No Significant tracer uptake within mid- to - distal anterior wal l/interventricular septum and apex corresponding to same non- perfused areas seen on myocard ial rest perfusion scan , compatible with nonviable myocardium in these regions. C. S/P [employer] RESIDENTIAL DRIVER-D 10-16-17 Dr Darby, [facility] 3. Ventricular tachycardia: A. Electrophysiology Study 10/16/17 shows positive EP study for inducible ventricular tachyc ardia. 4. Left atrial appendage thrombus A. Noted on MARKY in the [place] during ECMO decannulation. Completedheparin gtt justus dge 03/29 to therapeutic warfarin. Not on warfarin any more, no evidence of thrombus in last echocardiogram 5. Paroxysmal atrial flutter: A. Episode was seen while vision was hospitalized a week ago. This was after his NE and a t the same time patient was having ventricular tachycardia. He was initiated on amiodarone and then discontinued before discharge. The plan is to monitor through his device and see i f this is a problem that needs to be addressed. Patient is not on anticoagulation he was le ft that way from [facility]. Patient has had several GI bleeds and he felt at that point that he is bleeding risk are higher therefore they will be possibility of reinitiating anticoagulati on if patient has more episodes of paroxysmal atrial flutter 6. Positive screening for PAD 7. Normocytic anemia PLAN: 1. Wound check in 1 week 2. Follow up appointment for medication up titration in 2 weeks 3. Referral to cardiac rehabilitation s/p stents 4. check blood pressure and pulse twice daily for two weeks and return the log to our offic e. 5. Follow up in 1 month for office visit and device interrogation looking for atrial flutte r and VT I spent 75 minutes face to face with the patient, with over 50% spent in counseling and/or coordination of care regarding new diagnosis, multiple tests, changes in therapy and multipl e procedures.. Portions of this chart may have been created with [employer] voice recognition software. Occasi onal wrong-word or [...] | 03/12/ | Office | [facility] | [facility] | [facility] | Visit | | ADARSH [address] | | | | | | [address] [facility] | | | | | | [address] [place] | | | | | | [id number] | | | | | | | | +--------+ + + + + | 04/16/ | Office | Cardiology | Alin Anderson | | | 2019 | Visit | | MD Cheryl Arreguin | | | | | | [address] [place] | | | | | | [place] [address] | | | | | | [phone] | | | | | | | [...] [place] | | | | | | [address] | | | | | | | | +--------+ + + + + documented as of this encounter Procedures + +--------+ + + + | Procedure Name | Priori | Date/Time | Associated Diagnosis | Comments | | | ty | | | | + +--------+ + + + | ECG 12 LEAD | Routin | 10/19/2017 | Ischemic | Results for this | | | e | 5:14 PM | cardiomyopathy | procedure are in the | | | | PST | Coronary artery | results section. | | | | | disease involving | | | | | | yocha dehe coronary | | | | | | artery of yocha dehe | | | | | | heart without angina | | | | | | pectoris Acute | | | | | | anterior wall NE | | | | | | (HCC) | | + +--------+ + + + documented in this encounter Results ECG 12 lead (10/19/2017 5:14 PM PST) + + + + + + | Component | Value | Ref Range | Performed | Pathologist | | | | | At | Signature | + + + + + + | VENTRICULAR | 87 | BPM | [facility] | | | RATE EKG | | | | | + + + + + + | ATRIAL RATE | 87 | BPM | [facility] | | + + + + + + | P-R | 152 | ms | [facility] | | | INTERVAL | | | | | + + + + + + | QRS | 146 | ms | [facility] | | | DURATION | | | | | + + + + + + | Q-T | 434 | ms | [facility] | | | INTERVAL | | | | | + + + + + + | Q-T | 522 | ms | [facility] | | | INTERVAL | | | | | | (CORRECTED) | | | | | + + + + + + | P WAVE AXIS | 62 | degrees | [facility] | | + + + + + + | QRS AXIS | 179 | degrees | [facility] | | + + + + + + | T AXIS | 36 | degrees | [facility] | | + + + + + + | INTERPRETAT | Normal sinus | | [facility] | | | ION TEXT | rhythmNonspecific | | | | | | intraventricular | | | | | | blockPossible Lateral | | | | | | infarct , age | | | | | | undeterminedInferior | | | | | | infarct , age | | | | | | undeterminedAbnormal | | | | | | ECGNo previous ECGs | | | | | | availableConfirmed by | | | | | | LAUREN CHESTER MD | | | | | | ([id number]) on 10/19/2017 | | | | | | 5:14:23 PM | | | | + + [...] + + | Coronary artery disease involving yocha dehe coronary artery of yocha dehe heart without | | angina pectoris | + + | Acute anterior wall NE (HCC) Acute myocardial infarction of other anterior wall, | | episode of care unspecified | + + | RESIDENTIAL DRIVER-D (GABIB) [employer] 10/16/17 EULOGIO Darby | + + | Tachycardia Tachycardia, unspecified | + + documented in this encounter
--- OUTSIDE RECORDS SUMMARY | ~2020-03-04 | XMS | Encounter Summary ---
Demographics + + + | Address | [address] | | | [place] [address] | + + + | Home Phone | | + + + | Preferred Language | Unknown | + + + | Marital Status | | + + + | Adventist Affiliation | Unknown | + + + | Race | Unknown | + + + | Ethnic Group | Unknown | + + + Author + + + | Author | [facility] | | | and [place] | + + + | Organization | [facility] | | | and [place] | + + + | Address | Unknown | + + + | Phone | Unavailable | + + + Support + + + + + | Name | Relationship | Address | Phone | + + + + + | [place] | [place] | [place] | | | | | [address] | | + + + + + Care Team Providers + +------+ + | Care Ultrasonic Cleaner Name | Role | Phone | + +------+ + | Amy Olivares MD | PCP | | + +------+ + Reason for Visit + + + | Reason | Comments | + + + | Cardiac Rehab | | + + + Auth/Cert +--------+--------+ + + + + | [...] Description | +--------+---------+ + + + | 09/13/ | Office | [facility] | Amy Olivares V, | Chronic systolic CHF | | 2020 | Visit | [facility] | MD [address] | (congestive heart | | | | REHABILITATION [address] [place], [place] | failure) ([facility]) | | | | [address] | [phone] | (Primary Dx) | | | | [place] [address] | | | | | | [phone] | | | +--------+---------+ + + + [...] this encounter Progress Notes Gael Woo - 09/13/2019 9:00 AM PSTPatient tolerated exercise session without any compl aints. Progression based on pt flow sheet. Continue support and progression. Appointment duration: [address] in this encounter Plan of Treatment +--------+ [...] [place] | | | | | | [address] | | | | | | | | +--------+ + + + + | 04/16/ | Office | Cardiology | Alin Anderson | | | 2019 | Visit | | MD Cheryl Arreguin | | | | | | [address] | | | | | | [place] [address] | | | | | | [phone] | | | | | | | [...] [place] | | | | | | [address] | | | | | | | | +--------+ + + + + documented as of this encounter Visit Diagnoses + + | Diagnosis | + + | Chronic systolic CHF (congestive heart failure) (HCC) - Primary | + + documented in this encounter"
--- OUTSIDE RECORDS SUMMARY | ~2020-03-04 | XMS | Encounter Summary ---
Demographics + + + | Address | [address] | | | [place] [address] | + + + | Home Phone | | + + + | Preferred Language | Unknown | + + + | Marital Status | | + + + | Roman Catholic Affiliation | Unknown | + + + | Race | Unknown | + + + | Ethnic Group | Unknown | + + + Author + + + | Author | [facility] | | | and [place] | + + + | Organization | [facility] | | | and [place] | + + + | Address | Unknown | + + + | Phone | Unavailable | + + + Support + + + + + | Name | Relationship | Address | Phone | + + + + + | [place] Will | E[place] | [place] | | | | | [address] | | + + + + + Care Team Providers + +------+ + | Care Commercial Fisher Name | Role | Phone | + [...] | | | heart | [place], | [place] | | | | | failure | [place] [address] | [place] | | | | | (HCC) | Phone: | [phone] | | | | | I50.22 | [phone] | Phone: | | | | | Procedures | Fax: | [phone] | | | | | Cardiac | [phone] | Fax: | | | | | Rehab | | [phone] | +--------+--------+ + + + + Encounter Details +--------+---------+ + + + | Date | Type | Department | Care Team | Description | +--------+---------+ + + + | 06/02/ | Office | [facility] | Amy Olivares V, | Chronic systolic CHF | | 2019 | Visit | [facility] | MD [address] | (congestive heart | | | | REHABILITATION [address] [place], [place] | failure) ([facility]) | | | | [address] | [id number] | | | | | [place] [address] | | | | | | [phone] | Maria Esther Fields RN | | [...] Progress Notes Maria Esther Fields RN - 06/02/2019 11:30 AM PDT [facility] [address] [place] [address] Cardiac Rehab Evaluation Date: 06/02/2019 Patient Information Patient Name: Bob Will Date of : 1955 Age: 63 y.o. Referring Provider: Amy Dai MD Encounter Diagnoses Code Name Primary? I50.22 Chronic systolic CHF (congestive heart failure) (HCC) Cardiac Rehab Phase II Leon atment Plan Bob Will (Bob) is a 63 y.o. male with a history of coronary artery disease post rec ent anterior wall DC, post PTCA and stents of the left main, LAD and LCx on 03/15/17, cardiac shock, left atrial appendage thrombus, recent status post stents to, [facility]-D placement in [facility] on 10/17/2017. Patient's states that his PCP has changed [...] He tries to stay active. 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 He has not had any chest pain or discomfort at rest or with exertion. his shortness of breath has been getting wor se He has not had any lightheadedness or dizziness. He has not noticed palpitations. He has not had leg swelling. He is able to sleep laying down at night without any symptoms of shortness of breath. Fall Ri sk Assessment Fall Risk: 2 or more falls in the past year or concern for a fall?: No If yes, reason for fall risk: Assistive device: Electronic wheelchair as he has leg numbness post stroke. He is careful n ot to fall. I nterventions Designate Fall Risk by placing [...] No Action taken: No concerns Exercise LVEF: 25-30% Risk stratification category: High Initial exercise/activity assessment: Date: 06/02/19 Mode: Biostep Duration: 15 min X 2.26 M ETs RPE: 3-4/10 30 Day exercise assessment: Date: Mode: Duration: RPE: /10 60 Day exercise assessment: Date: Mode: Duration: RPE: /10 Discharge exercise assessment: Date: Mode: Duration: RPE: /10 Sessio n Prescription Modes: Recumbent elliptical, Upright elliptical, Ergometer Frequency: 3 X week Duration: 30 minutes Progression: Increase duration and/or intensity to maintain THR and/or RPE 3-4/10 THR: Rest +30 bpm Resistance training: Yes Precautions: High risk cardiac Home E xercise Modes: Walk/three wheel bike Frequency: 5 X week Duration: 30 minutes Progression: Increase duration and/or intensity of exercise to maintain at least 30 min of cardio exercise, 5 days per week and RPE 3-4/10 with warm up and cool down. Interventio ns and Education Initial orientation to cardiac rehab as listed below, Completed Date: 05/09 02/23 - Equipment orientation -Warm up and cool [...] have good comprehension. Norma: Living Well with Heart Failure book Date received: 06/02/19 Gildardo lino Goal(s) Aerobic- moderate intensity activity 30 to 60 minutes per day for at least 5 days per week Supplementing aerobic activity with an increase in daily lifestyle activities Resistance training at least two days per week COOP score: 16/40 Progression/Pro ne toward Goals Date: 06/02/19 Notes: He enjoys riding his three wheeled bike every day. Nutr ition and Weight Assessment: Height: 5'9 " Admission Weight: 197# 30 Day We ight: BMI: 29 60 Day Weight: Discharge Weight: Weight Goal: Waist Circumference: D/C Circum ference: Diet Assessment Initial Rate Your Plate Score: 41 Discharge Rate Your Plate Sco re: Special diet? Low sodium Alcohol? Inte rvention and Education Points listed below- Date Completed: -Goals of BMI, Waist circumference - Encourage weight reduction and/or maintenance through physical activity/ structured exe rcise, caloric intake, and/ or behavioral management, goal setting -Heart Healthy Dietary Education Date: 06/02/19 -Referral to Client Renewal Specialist: Date: -DVD: Healthy Eating For Life Date: Target Goal(s) -Patient weight has maintained or improved toward BMI <25 -Waist circumference <35 inches for women < 40 inches for men -Diet low in saturated fats, simple carbs, high in fruits, vegetables and whole grains Progression/ Progress toward Goals Date:06/02/19 Notes: He is educated regarding heart healthy eating, he does ea t reduced sodium diet and limits saturated fats, eats fruits and vegetables. Hypertension History of hypertension: yes Treatment: On medication Initial Resting BP: 82/56 Peak Exercise BP: 92/50 30 Day Resting BP: 30 Day Exercise BP: 60 Day Resting BP: 60 Day Exercise BP: Discharge BP: Discharge Exercise BP: Inte rventions and Education Points listed below- Date Completed: -Understanding blood pressure and goal blood pressure -BP medictions - Lifestyle modifications: weight control, increased physical activity, alcohol moderation, sodium reduction, emphasis on increased fruit, vegetable and low fat dairy consumption Individual cardiac risk factors reviewed Progress toward Goals: Date: Target Goal Blood pressure Goal: Progression /Progress toward Goals Date: 06/02/19 Notes: BP running low, he is asymptomatic Dyslipidemia History of Dyslipidemia: Yes Treatment: On medication Most recent lipid panel: CHOL TRIG HDL LDL- none recent Interven tions and Education Points listed below- Date Completed: 06/02/19 -Advocate for cholesterol medication if appropriate -Encourage [...] Triglycerides <130 Progression/P rogress toward Goals Date: 06/02/19 Notes: He exercises daily and eats a diet reduced saturated fats . Niharika betes Mellitus History of diabetes: No Treatment: Last hemoglobin A1C: Value: Date: Interventions -Evaluate blood sugar pre- and post- exercise until stable. Date: Range: -Referral to Installation Drafter Date: Education Points listed below- Date Completed: [...] Date: Notes: Psychosocial Depression: No Initial PHQ-9: 4 30 Day PHQ-9: 90 Day PHQ-9 Discharge PHQ-9: Support systems: and family Notes: He is tired and often has little interest in doing things. Inter vention and Education Points listed below- [...] Notes: Patients stated Goals for Cardiac Rehab: To gain strength and conditioning. Electronically signed by: Maria Esther Fields RN, 06/02/2019 12:48 Patient Name: Bob Will/: 1955/ ly signed by Randy Figueroa MD at 06/02/2019 1:20 PM PDTdocumented in this encounter Plan of Treatment +--------+ + + + + | Date | Type | Specialty | Care Team | Description | +--------+ + + + + | 03/12/ | Office | Nephrology | Litzy, | | | 2019 | Visit | | [facility] [address] | | | | | | [address] | | | | | | [address] [place] | | | | | | [id number] | | | | | | | | +--------+ + + + + | 04/16/ | Office | Cardiology | Alin Anderson | | | 2019 | Visit | | MD [address] | | | | | | [address] | | | | | | [place] [address] | | | | | | [phone] | | | | | | | [...] [place] | | | | | | [address] | | | | | | | | +--------+ + + + + documented as of this encounter Visit Diagnoses + + | Diagnosis | + + | Chronic systolic CHF (congestive heart failure) (HCC) | + + documented in this encounter
--- OUTSIDE RECORDS SUMMARY | ~2020-03-04 | XMS | Encounter Summary ---
Demographics + + + | Address | [address] | | | [place] [address] | + + + | Home Phone [...] + + | Author | [facility] | + + + | Organization | [facility] | + + + | Address | Unknown | + + + | Phone | Unavailable | + + + Support + + + + + | Name | Relationship | Address | Phone | + + + + + | Venice cMkeon | ECON | [address] | | | | | [place] [address] | | + + + + + Care Team Providers + +------+ + | Care Ticket Agent Name | Role | Phone | + [...] Description | +--------+---------+ + + + | 03/19/ | Surgery | 6A [address] | Siria Preston | DECANNULATION | | 2017 | | [address] | [address] | | | | | [facility] | [facility] | | | | | Hospital Admitting | [place] [address] | | | | | Desk Located on the | [phone] | | | | | 9th floor | | | | | | [place], [place] | | | | | | [address] | | | +--------+---------+ + + + [...] 2:26 PM PDT CLINICAL HOSPITALIST DISCHARGE SUMMARY [facility] Discharging Provider: Aria Rojas MD Discharging Attending [...] follow up ludmila miller with a local field service rep in [place]. #Acute cardiogenic shock in the setting ofSTEMI [...] at prior sheath site with stitch removed 7/21. No sign of infection or hematoma, but p ossibly some candidal infection/interrigo for which he was treated with Nystatin powder. Wou nd care consult 03/26. #Anemia, normocytic Pt noted to have anemia on H&P. Hct dropped abruptly from 44 to 32 during first day at [facility] , with addition decline to 24 [...] (noted on o [facility]side records). Patient on [facility] 10/325 q8 as outpatient. Was receiving scheduled [...] then take 7.5 mg (one and one-h halfway tablets) daily starting 04/03/2017 Indications: JAVON thrombus, [...] Fax Number [facility] Yes [address] [place] [address] Medina Roger RN 04/02/2017 11:31 Medina Roger RN, 04/02/2017 11:28 AM: Spoke with Latricia, 7 day auth # [id number] has been provided. Contacted Tanisha at facility [phone], arranging anticipated medicaid transport by stretcher at 2 pm today. Spoke with patient and souse concerning dc; they are both in agreement. Medina Roger RN, 04/02/2017 9:20 AM: Contacted Latricia Landry [phone] referencing auth# for SNF placement. Medina Roger RN, 04/01/2017 11:42 AM: Spoke with Malathi [phone], at facility admissions. Patient is accepted to facility. Prov ided information for information loader with [facility] Fed Latricia Landry [phone], Tanisha moncada pursue auth and get back to me. F&MS working with patient and family to add Medicaid ser vices to benefits. When added patient will have travel benefit. CM contacted Shahab Holman re [employer] training. Tamia Van, RN, 03/30/2017 1:21 PM: Received VM from Emily Terrell CM with [facility] to send referral to this location . Referral made, awaiting response. Follow Up: Schedule the following appointment(s) when you get home Follow up with [facility] . Specialties: [facility], [facility] Contact information [address] [place] [phone] Follow up with LAUREN CHESTER MD. Go on 04/07/2017. Specialty: Cardiology Why: at 8:30 AM to establish Cardiology follow up Contact information [facility] [address] [address] Aria Rojas MD Division of Hospital Medicine [facility] [place] I spent 60 minutes on discharge activities on the day of discharge, including counseling of the patient and his regarding his discharge plan and in coordination of care on the or rd with nursing, pharmacy, and Heart Failure.Electronically [...] Rojas MD PCP: Jamal Guerrero MD Hospital Day: CC: cardiogenic shock 24h Events: No acute [...] Intake/Output Summary (Last 24 hours) at 04/01/17 09 Last data filed at 04/01/17 0825 Gross [...] (or 3 results) Recent Labs 03/30/17 0030 03/31/1734404/01/17342 WBC 10.17 8.85 9.82 HB 9.1* 9.5* 9.3* HCT 27.5* 28.8* 27.7* PLT 450* 408* 435* NEUTROPERC 73.3* 73.6* 72.3* LYMPHPERC 16.7* 16.2* 17.1* MONOPERC 7.5 8.1 8.6 BASOPERC 0.2 0.2 0.1 EOSPERC 0.7* 0.5* 0.8* Chemistries last 72 Hours (or 3 results): Recent Labs 03/30/17 0030 03/30/17203503/31/1734404/01/17342 NA -- < > 133* 131* 130* [...] ch ronic pain who was transferred to [facility] on 03/15 s/p STEMI with cardiogenic [...] will need [employer] [facility] follow up with field service rep in [place] on discharge - appr [facility] cardiology assistance with coordinating. -Will f/u further [...] hematoma, but possibly some candidal infection/intertrigo. On [facility] 10/325 Q8H as an outp atient. -Continue nystatin powder and lidocaine cream PRN -Oxycodone as above -Cont APAP 1000 mg TID -Nursing will request wound care reassess left groin wound to determine if more frequent dr petty changes may be beneficial Left atrial thrombus [...] 44 to 32 during first day at [facility], with addition decline to 24 th [...] Aria Rojas MD Division of Hospital Medicine [facility] Pager [phone] I spent 36 minutes on the patient [...] Labs 03/29/17 0736 03/30/17 0030 03/30/17 1249 03/30/17203503/31/17 0345 NA 131* -- < > 132* [...] ch ronic pain who was transferred to [facility] on 03/15 s/p STEMI with cardiogenic [...] will need Life Vest follow up with field service rep in [place] on discharge - appr [facility] cardiology assistance with coordinating. Hyperkalemia Resolved with [...] hematoma, but possibly some candidal infection/interrigo. On [facility] 10/325 Q8H as an outpa tient. -Continue nystatin [...] in [place] near patient's home; appreciate assistance At risk for malnutrition Very little PO intake but reportedly improving. Previously had dobhoff feeding tube in the CVICU.Nutrition assistance appreciated. -Calorie count ongoing -Encouraging PO intake Normocytic anemia Hct dropped abruptly from 44 to 32 during first day at [facility], with addition decline to 24 th [...] Aria Rojas MD Division of Hospital Medicine [facility] Pager [phone] I spent 36 minutes on the patient encounter today, >50% in counseling of the patient's on the above plan of care and in coordination of care on the arizmendi with nursing and Heart Fa ilure. Ariana Ivy DO - 03/30/2017 5:49 PM PDT CLINICAL HOSPITALIST SERVICE PROGRESS NOTE PATIENT'S NAME/MRN: Ron Mckeon/[id number] HOSPITAL DAY: #15 24-HOUR EVENTS & SUBJECTIVE: -patient complained of typical anginal chest pain and had STEMI code last night, anterior S T elevation on serial EKGs, given 325mg ASA, started on heparin drip (had been turned off fo r JAVON thrombus yesterday afternoon with warfarin therapeutic), patient went to the lab pack chemist -on angiography, interventionalists noted "patent stent traversing [...] TID, Ivette Chaudhry MD, 1,000 mg at 03/30/17 0932 artificial tears (dextran 70-hypromellose) (NATURE'S TEARS) 0.1-0.3 % ophthalmic drops 1 dr marvin, 1 drop, Both Eyes, PRN, KULWINDER Bella [START ON 03/31/2017] aspirin EC tablet 81 mg, 81 mg, oral, DAILY, Ivette Chaudhry MD atorvastatin (LIPITOR) tablet 40 mg, 40 mg, oral, DAILY, Jeet Ramírez MD, 40 mg at 0932 bisacodyl (DULCOLAX) suppository 10 mg, 10 mg, [...] mg, 10 mg, oral, Q4H PRN, Ariana De La Torre efDO jai, 10 mg at 03/30/17 0737 polyethylene glycol [...] Jeet Ramírez MD, 12.5 mg at 0 03/29/172148 senna-docusate (SENOKOT S) 8.6-50 mg 2 tablet, 2 tablet, oral, BID, Jeet Ramírez MD, 2 tablet at 03/30/17 0932 warfarin (COUMADIN) tablet 7.5 mg, 7.5 mg, oral, QPM, Ariana Bose DO OBJECTIVE: Last Vitals: BP 101/56 | Pulse [...] daily - Patient will follow up with field service rep in [place] on discharge; appreciate cardiolo gy assistance with coordinating #Hyperkalemia Likely due some [...] stenosis (noted on o utside records, on [facility] 10 q8 as outpatient) Improved today -continue oxycodone [...] discharge. -CM looking for skilled placement in [place] near patient's home; appreciate assistance #Risk for malnutrition Very little PO intake, improving today. Previously had dobhoff feeding tube in the CVICU.Nu trition assistance appreciated. -Calorie count ongoing -Encouraging PO intake #Anemia, normocytic Pt noted to have anemia on H&P. Hct dropped abruptly from 44 to 32 during first day at [facility] , with addition decline to 24 [...] assistance Barriers for DC: delivery/approval of lifevest, [facility] bed Ariana Bose DO Textile Finisheranalytic manager Clinical Hospitalist and Medicine Teaching Service Division of Hospital Medicine [facility] Pager [phone] [facility] DEPARTMENT: Hosp- [id number] Place of Service: - Date of Service: 03/26/2017 CSN: [id number] Modifiers:GC Resident Involved: Yes Suggested CPT: 26377 Subsequent Visit Detailed/High complexity 35 min Cristi [...] given continued elevated Tn, patient's significant recent ME, we activated the lab pack chemist. Patient received 325 mg ASA at bedside and was briefly on heparin which has since been disc ontinued. Per cardiology will continue daily 81 mg ASA, plavix and warfarin. Continue to t rend troponins as well. I spent 30 minutes with this patient with >50% of the time evaluating patient at the [facility] e on numerous occasions, evaluating studies and coordinating care w/ cardiology.Electronical ly signed by Ivette Chaudhry MD at 03/30/2017 6:24 AM Gerson Oseguera MD - 03/30/2017 4:31 AM PDTCardiology Preliminary Procedure Note (Full report to follow) Primary Care Provider: Jamal Guerrero MD Referring Provider: No Referring Provider Per Patient Jammer Operator Staff: Katarina Ngo M.D. Procedure(s): Coronary Angiography [...] None Complications: None Hemostasis: Manual compression in lab pack chemist. Site: [facility] Recommendations: Patient Status: Inpatient Usual post cath care. Ariana Ivy D O - 03/29/2017 9:30 AM PDT CLINICAL HOSPITALIST SERVICE PROGRESS NOTE PATIENT'S NAME/MRN: Ron Mcekon/[id number] HOSPITAL DAY: #14 24-HOUR EVENTS & SUBJECTIVE: [...] TID, Ivette Chaudhry MD, 1,000 mg at 03/28/172140 artificial tears (dextran 70-hypromellose) (NATURE'S TEARS) 0.1-0.3 [...] 03/29/17 0817, 1,950 U nits/hr at 03/29/17 08 insulin lispro (HUMALOG) injection, , subcutaneous, QID, Jose Ramon Alvarado MD, 2 Units at 03/27/171955 insulin NPH (HUMULIN N) injection 2 Units, 2 Units, subcutaneous, Q12H (Scheduled), [facility], 2 Units at 03/28/172206 ipratropium-albuterol (DUO-NEB) nebulizer solution 3 mL, 3 mL, inhalation, Q6H PRN, Terry Ochoa MD lidocaine (XYLOCAINE) 5 % ointment, , topical, PRN, Ariana Bose DO lisinopril (PRINIVIL) tablet 5 mg, 5 mg, oral, BID, Ariana Bose DO, 5 mg at 7 0847 melatonin tablet 3 mg, 3 mg, oral, QPM, Jeet Ramírez MD, 3 mg at 03/28/172 menthol-zinc oxide (CALAZIME) topical paste 0.2%-16.5%, , [...] mg, 10-15 mg, oral, Q6H PRN, Ariana Bose, DO, 15 mg at 03/29/17 0537 polyethylene [...] Jeet Ramírez MD, 12.5 mg at 0 03/28/172141 senna-docusate (SENOKOT S) 8.6-50 mg 2 tablet, 2 tablet, oral, BID, Jeet Ramírez MD, 2 tablet at 03/29/17 0848 warfarin (COUMADIN) tablet 5 mg, 5 mg, oral, QPM, Ariana Bose, DO, 5 mg at 03/28/172141 OBJECTIVE: Last Vitals: BP 109/67 | Pulse [...] running IVs: heparin to end likely M , needs telemetry, no physical restraints, discontinued SCDs [...] stenosis (noted on o utside records, on [facility] 10/325 q8 as outpatient) -continue oxycodone 10mg q4 [...] 44 to 32 during first day at [facility] , with addition decline to 24 the following day. Has received 3U PRBC so far this admission. Currently stable Hct/Hgb. Suspect acute initial drop during first 2-3 days of admission was related to acute blood loss anemia in setting of IABP, ECMO, multiple lines, very frequent lab monitoring. No overt clinical e/o bleeding since admission. Given current stability, haider rust hold on further evaluation. -Trend CBC #AYLIN [...] arm, midline left arm Ariana Bose DO Textile Finisheranalytic manager Clinical Hospitalist and Medicine Teaching Service Division of Hospital Medicine [facility] Pager [phone] [facility] DEPARTMENT: Hosp- [id number] Place of Service: - Date of Service: 03/26/2017 CSN: [id number] Modifiers:GC Resident Involved: Yes Suggested CPT: 88358 Subsequent Visit Detailed/High complexity 35 min Ariana Ivy DO - 03/28/2017 8: 06 AM PDT CLINICAL HOSPITALIST SERVICE PROGRESS NOTE PATIENT'S NAME/MRN: Ron Mckeon/[id number] HOSPITAL DAY: #13 24-HOUR EVENTS & SUBJECTIVE: [...] Jeet Ramírez MD, 75 mg at 03/27 0942 dextrose 50 % in water IV 25 mL, 25 mL, intravenous, PRN, Jose Ramon Alvarado MD eplerenone (INSPRA) tablet 50 mg, 50 mg, oral, DAILY, Jeet Ramírez MD, 50 mg at 0951 famotidine (PEPCID) tablet 20 mg, 20 mg, [...] 2 Units, 2 Units, subcutaneous, Q12H (Scheduled), Ginand geno Alvarado MD, 2 Units at 03/27/171956 ipratropium-albuterol [...] DAILY, Gaurav Hobbs PA-C, 25 mg at 03/27/17 0942 [DISCONTINUED] oxyCODONE (immediate release) (ROXICODONE) tablet 5-10 mg, 5-10 mg, oral, Q3 H PRN, 10 mg at 03/24/172199 OR oxyCODONE (immediate release) (ROXICODONE) liquid 10-15 [...] (or 3 results) - Refreshable Recent Labs 03/26/1733603/27/1735003/28/17412 WBC 15.15* 14.20* 11.82* HB 8.3* 8.3* [...] heparin to end likely M onday, needs telemetry but will discuss further with cards, no physical restraints) #Left groin pain #Chronic pain in the setting of degenerative disc disease and cervical stenosis (noted on o [facility]side records, on [facility] 10 q8 as outpatient) Improving L groin pain [...] 44 to 32 during first day at [facility] , with addition decline to 24 [...] arm, midline left arm Ariana Bose DO Textile Finisheranalytic manager Clinical Hospitalist and Medicine Teaching Service Division of Hospital Medicine [facility] Pager [phone] [facility] DEPARTMENT: Hosp- [id number] Place of Service: - Date of Service: 03/26/2017 CSN: [id number] Modifiers:GC Resident Involved: Yes Suggested CPT: 51035 Subsequent Visit Detailed/High complexity 35 min Ariana [...] Jeet Ramírez MD, 20 mg at 03/26/17 2145 furosemide (LASIX) injection 60 mg, 60 mg, intravenous, BID (08 and ), Gaurav Hobbs PA-C, 60 mg at 03/26/17 1654 glucagon (GLUCAGEN) injection 1 mg, 1 mg, [...] QPM, Jeet Ramírez MD, 3 mg at 03/26/17 2145 menthol-zinc oxide (CALAZIME) topical paste 0.2%-16.5%, , [...] and SpCx 03/18 negative. UA done from rearodn 03/25 with some LE, but no bacteria, [...] 44 to 32 during first day at [facility] , with addition decline to 24 [...] arm, midline left arm Ariana Bose DO Textile Finisheranalytic manager Clinical Hospitalist and Medicine Teaching Service Division of Hospital Medicine [facility] Pager [phone] [facility] DEPARTMENT: Hosp- [id number] Place of Service: - Date of Service: 03/26/2017 CSN: [id number] Modifiers:GC Resident Involved: Yes Suggested CPT: 68235 Subsequent Visit Detailed/High complexity 35 min Chapis [...] tablet 25 mg, 25 mg, oral, Q8H, [place] Butcher, ACNP, 25 mg at 214 cholecalciferol (Vitamin D3) (VITAMIN D-3) tablet 1,000 Units, 1,000 Units, oral, DAILY, Amol Alvarado MD, 1,000 Units at 03/25/17 214 clopidogrel (PLAVIX) tablet 75 mg, 75 mg, [...] Jose Ramon Alvarado MD, 2 Units at 03/25/17855 insulin NPH (HUMULIN N) injection 2 Units, [...] % Intake/Output Summary (Last 24 hours) at 03/26/17716 Last data filed at 03/26/17 0600 Gross [...] 03/23/17 0200 03/24/17 0012 03/25/17 0052 03/25/17200703/25/17 2339 03/26/17 0337 GLU 127* < > [...] 44 to 32 during first day at [facility] , with addition decline to 24 [...] arm, midline left arm Ariana Bose DO Textile Finisheranalytic manager Clinical Hospitalist and Medicine Teaching Service Division of Hospital Medicine [facility] Pager [phone] [facility] DEPARTMENT: Hosp- [id number] Place of Service: - Date of Service: 03/26/2017 CSN: [id number] Modifiers:GC Resident Involved: Yes Suggested CPT: 28085 Subsequent Visit Detailed/High complexity 35 min Wan Cano MD - 03/25/2017 3:07 PM PDT . Cardiovascular Intensive Care Unit Attending Progress Note CVICU D2 Assigned #[id number] ICU Admission Reason Most Recent Value ICU [...] artery. ANY X2 placed in outs surinder lab pack chemist along with IABP. Arrived in cardiogenic shock, [...] Pager Mellisa Haji MD Admitting Provider Cardiology 47337 Zelalem Del Toro MD ICU PM Attending Anesthesiology 59341 Code Status Code Status Full Code The Advanced Care Note for this patient can be found under the notes tab in chart review. Quality section Reardon necessity reviewed: Hourly/Accurate measurement of urinary output for clinical manage ment of critically ill patients Wan Deleon MD, JOHN, ERVIN Cardiovascular Intensive Care Unit [address] [address] I have spent a total of 38 [...] xceptions/additions as noted. Date of Service: 03/25/2017 [facility] DEPARTMENT: ANE ICU CARDIAC Place of Service:- Inpatient CSN: [id number] Suggested Modifier: GC - Resident Involved Suggested CPT: TO CAMPUS SAFETY OFFICER Pal Khan Md - 03/24/2017 10:54 AM PDT Cardiovascular Intensive Care Unit Team Progress Note CVICU D2 Assigned #[id number] ICU Admission Reason Most Recent Value ICU [...] artery. ANY X2 placed in outs surinder lab pack chemist along with IABP. Arrived in cardiogenic shock, [...] & Plan Patient went into VFib during lab pack chemist procedure at [facility]. Was shocked 17 times Targeted temperature management [...] edema. Patient was difficult intubation at outside lab pack chemist. -secretions improving, cough strong -s/p 7 days [...] Pager Mellisa Haji MD Admitting Provider Cardiology 07052 Zelalem Del Toro MD ICU PM Attending Anesthesiology 09413 The Advanced Care Note for this patient [...] Ramon Alvarado MD Author:Jose Ramon Alvarado MD [address] [id number] signed by Jose Ramon Alvarado Md at 03/24/2017 11:00 AM PDTWan Deleon MD - 03/24/2017 9:47 AM PDTFormatting of this note might be differe nt from the original. Cardiovascular Intensive Care Unit Attending Progress Note CVICU D2 Assigned #[id number] ICU Admission Reason Most Recent Value ICU [...] artery. ANY X2 placed in outs surinder lab pack chemist along with IABP. Arrived in cardiogenic shock, [...] Pager Mellisa Haji MD Admitting Provider Cardiology 70522 Zelalem Del Toro MD ICU PM Attending Anesthesiology 59605 Code Status Code Status Full Code The Advanced Care Note for this patient can be found under the notes tab in chart review. Quality section Reardon necessity reviewed: Hourly/Accurate measurement of urinary output for clinical manage ment of critically ill patients Wan Deleon MD, JOHN, ERVIN Cardiovascular Intensive Care Unit [address] [address] I have spent a total of 42 [...] xceptions/additions as noted. Date of Service: 03/24/2017 [facility] DEPARTMENT: ANE ICU CARDIAC Place of Service:- Inpatient CSN: [id number] Suggested Modifier: GC - Resident Involved Suggested CPT: TO CAMPUS SAFETY OFFICER Author:Wan Deleon Md, MD [address] [id number] signed by Wan Deleon MD at 03/24/2017 9:49 AM PDTToTamia lieberman PA-C - 03/23/2017 11:54 PM PDTFormatting of this note might be diff erent from the original. Cardiovascular Intensive Care Unit Clinical Update Note Team: D2 Team Pager: [phone] Attending: Katey Pt Name: Ron Mckeon ID: Abbreviated HPI Abbreviated HPI / Daily Assessment Ron Mckeon is a 61 year old man with acute cardiogenic shock in the setting of acu te STEMI from thrombosed left main coronary artery. Initially had lesion in proximal LAD and distal LM, but then acutely thrombosed his left main coronary artery. ANY X2 placed in outs surinder lab pack chemist along with IABP. Arrived in cardiogenic shock, [...] Unit Team Progress Note CVICU D2 Assigned #[id number] ICU Admission Reason Most Recent Value ICU [...] artery. ANY X2 placed in outs surinder lab pack chemist along with IABP. Arrived in cardiogenic shock, [...] & Plan Patient went into VFib during lab pack chemist procedure at [facility]. Was shocked 17 times Targeted temperature management [...] edema. Patient was difficult intubation at outside lab pack chemist. -fevering nightly, cultures negative, WBC stable -secretions [...] Pager Mellisa Haji MD Admitting Provider Cardiology [id number] The Advanced Care Note for this patient [...] Ramon Alvarado MD Author:Jose Ramon Alvarado MD [address] [address] [place] [id number] signed by Jose Ramon Alvarado Md at 03/23/2017 11:41 AM Wan Cano MD - 03/23/2017 9:51 AM PDTFormatting of this note might be differe nt from the original. Cardiovascular Intensive Care Unit Attending Progress Note CVICU D2 Assigned #[id number] ICU Admission Reason Most Recent Value ICU [...] artery. ANY X2 placed in outs surinder lab pack chemist along with IABP. Arrived in cardiogenic shock, [...] Pager Mellisa Haji MD Admitting Provider Cardiology 38490 Code Status Code Status Full Code The Advanced Care Note for this patient can be found under the notes tab in chart review. Quality section A-Line necessity reviewed: Plan to DC today Reardon necessity reviewed: Hourly/Accurate measurement of urinary output for clinical manage ment of critically ill patients Currently at risk for: delirium, stroke, ME, arrythmia, tamponade, PE, respiratory failure, ARDS, aspiration, AYLIN / ARF, coagulopathy, DVT, stress ulcers, sepsis, BONIFACIO, electrolyte per turbations, malnutrition, deconditioning and decubiti. Wan Deleon MD, JOHN, ERVIN Cardiovascular Intensive Care Unit [address] [address] I have spent a total of 44 [...] xceptions/additions as noted. Date of Service: 03/23/2017 [facility] DEPARTMENT: [facility] ICU CARDIAC Place of Service:- Inpatient CSN: [id number] Suggested Modifier: GC - Resident Involved Suggested CPT: TO CAMPUS SAFETY OFFICER Tamia De La Paz PA-C - 03/22/2017 7:58 PM PDT . Cardiovascular Intensive Care Unit Clinical Update Note Team: D2 Team Pager: [phone] Attending: Abdulaziz Merrill Name: Ron Mckeon ID: [...] Unit Attending Progress Note CVICU D2 Assigned #[id number] ICU Admission Reason Most Recent Value ICU [...] long tobacco abuse history, presenting with acute ME and STEMI, resu ltant cardiogenic shock refractory [...] Pager Mellisa Haji MD Admitting Provider Cardiology 27392 Code Status Code Status Full Code Quality section A-Line necessity reviewed: Plvo-ew-fyxj blood pressure monitoring Reardon necessity reviewed: Hourly/Accurate [...] Date of Service: 03/22/2017 Author:Anurag Ashby MD [address] [id number] signed by Anurag Ashby MD at 03/22/2017 11:07 AM P Macho Sellers MD - 03/22/2017 11:00 AM PDT Cardiovascular Intensive Care Unit Team Progress Note CVICU D2 Assigned #[id number] ICU Admission Reason Most Recent Value ICU [...] & Plan Patient went into VFib during lab pack chemist procedure at [facility]. Was shocked 17 times Targeted temperature management [...] edema. Patient was difficult intubation at outside lab pack chemist. -vanc zosyn stopped 03/17 -fever 38.3 last [...] Pager Mellisa Haji MD Admitting Provider Cardiology 00152 This patient does not have an Advanced Care Note for this Admission. Please use the Goal of care section of your ICU navigator to document the advanced care discussion. Quality section A-Line necessity reviewed: Hcxh-si-djtz blood pressure monitoring Reardon necessity reviewed: Hourly/Accurate measurement of urinary output for clinical manage ment of critically ill patients FAST HUG Feeding: Tube Feeds: Replete @ 55 mL/hr Analgesia: APAP, hydromorphone PRN Sedation: N/A Thromboprophylaxis: Heparin infusion Head of Bed: Head of Bed >30 degrees Ulcer Prophylaxis: Famotidine Glycemic Control: insulin infusion Created by Macho Gaytan MD Author:Macho Gaytan MD [address] [address]Qbfcucdmlshivg signed by Macho Gaytan MD at 03/23/2017 12:35 PM PDTT Tamia leon PA-C - 03/21/2017 7:02 PM PDTFormatting of this note might be different f rom the original. Cardiovascular Intensive Care Unit Clinical Update Note Team: D2 Team Pager: [phone] Attending: Abdulaziz Merrill Name: Rno Mckeon ID: Abbreviated HPI Abbreviated HPI / [...] Opens eyes, nods head. Follows commands for microbiology teacher and Plan: Hospital Problems Priority POA Head/Neck [...] Unit Team Progress Note CVICU D2 Assigned #[id number] ICU Admission Reason Most Recent Value ICU [...] & Plan Patient went into VFib during lab pack chemist procedure at [facility]. Was shocked 17 times Targeted temperature management [...] edema. Patient was difficult intubation at outside lab pack chemist. -vanc zosyn stopped 03/17 -fever 38.3 last [...] Pager Mellisa Haji MD Admitting Provider Cardiology 10113 This patient does not have an Advanced Care Note for this Admission. Please use the Goal of care section of your ICU navigator to document the advanced care discussion. Quality section A-Line necessity reviewed: Hqjg-sk-ymyg blood pressure monitoring CVC necessity reviewed: Hemodynamic [...] by Macho Gaytan MD Author:Macho Gaytan MD [address] [address]Zxslpfvufdqtwt signed by Macho Gaytan MD at 03/21/2017 1:43 PM PDTM Anurag coates MD - 03/21/2017 12:22 PM PDT Cardiovascular Intensive Care Unit Attending Progress Note CVICU D2 Assigned #[id number] ICU Admission Reason Most Recent Value ICU [...] long tobacco abuse history, presenting with acute ME and STEMI, resu ltant cardiogenic shock refractory [...] Pager Mellisa Haji MD Admitting Provider Cardiology 84588 Code Status Code Status Full Code Quality section A-Line necessity reviewed: Rqsc-ge-oivx blood pressure monitoring CVC necessity reviewed: Plan [...] Date of Service: 03/21/2017 Author:Anurag Ashby MD [address] [address]Kncbxlyfqxxckp signed by Anurag Ashby MD at 03/21/2017 12:22 PM P Jose Ramon Coburn Md - 03/20/2017 12:36 PM PDTFormatting of this note might be different f rom the original. Cardiovascular Intensive Care Unit Team Progress Note CVICU D2 Assigned #[id number] ICU Admission Reason Most Recent Value ICU [...] & Plan Patient went into VFib during lab pack chemist procedure at [facility]. Was shocked 17 times Targeted temperature management [...] S/p VA ECMO 03/15-03/19 Vent on PS 01/14/50%, RR in high 20s PRN ABGs Sedation [...] 92% Does not tolerate V/AC On PS, / at 50% Fi At risk for electrolyte imbalance Unknown Current Assessment & Plan Renal function set and magnesium daily ICU lytes protocol begun 03/16 PM as EGFR came below 60 K > 4.5, Mag > 2.5 Opacity of lung on imaging study Unknown Current Assessment & Plan Greatest in RUL. Asp pna vs pulmonary edema. Patient was difficult intubation at outside lab pack chemist. -vanc zosyn stopped 03/17 -fever 38.3 last [...] Pager Mellisa Haji MD Admitting Provider Cardiology 14775 Quality section A-Line necessity reviewed: Inxr-pn-ljeb blood pressure monitoring CVC necessity reviewed: Hemodynamic [...] Ramon Alvarado MD Author:Jose Ramon Alvarado MD [address] [address]Winkwwupjojlok signed by Jose Ramon Alvarado Md at 03/20/2017 12:49 PM PDTMoulton, Anurag Soni MD - 03/20/2017 12:18 PM PDTFormatting of this note might be different f rom the original. Cardiovascular Intensive Care Unit Attending Progress Note CVICU D2 Assigned #[id number] ICU Admission Reason Most Recent Value ICU [...] long tobacco abuse history, presenting with acute ME and STEMI, resu ltant cardiogenic shock refractory [...] Pager Mellisa Haji MD Admitting Provider Cardiology 99582 Code Status Code Status Full Code Quality section A-Line necessity reviewed: Dkpi-jh-qppp blood pressure monitoring CVC necessity reviewed: Medication [...] Date of Service: 03/20/2017 Author:Anurag Ashby MD [address] [address]Wkzefqduufursh signed by Anurag Ashby MD at 03/20/2017 12:18 PM Raul Sanders MD - 03/19/2017 11:01 PM PDT Cardiovascular Intensive Care Unit Attending Progress Note CVICU D2 Assigned #[id number] ICU Admission Reason Most Recent Value ICU [...] long tobacco abuse history, presenting with acute ME and STEMI, resu ltant cardiogenic shock refractory [...] Pager Mellisa Haji MD Admitting Provider Cardiology 46158 Code Status Code Status Full Code Quality section A-Line necessity reviewed: Swul-qb-qpqu blood pressure monitoring CVC necessity reviewed: Hemodynamic [...] Date of Service: 03/19/2017 Author:Raul Wei MD [address] [address] [place] [address]Izehxuqkrfcdjx signed by Raul Wei MD at 03/19/2017 11:01 PM PDT Christiano Roche, Jose Ramon - 03/19/2017 4:49 PM PDTFormatting of this note might be different fro m the original. Cardiovascular Intensive Care Unit Team Progress Note CVICU D2 Assigned #[id number] ICU Admission Reason Most Recent Value ICU [...] & Plan Patient went into VFib during lab pack chemist procedure at [facility]. Was shocked 17 times Targeted temperature management [...] edema. Patient was difficult intubation at outside lab pack chemist. -vanc zosyn stopped 03/17 -fever 38.3 03/17 [...] Pager Mellisa Haji MD Admitting Provider Cardiology 67276 Quality section A-Line necessity reviewed: Qznw-bf-bqsg blood pressure monitoring CVC necessity reviewed: Hemodynamic monitoring Reardon necessity reviewed: Hourly/Accurate measurement of urinary output for clinical manage ment of critically ill patients FAST HUG Feeding: TFs Analgesia: multimodal Sedation: propofol Thromboprophylaxis: Heparin infusion Head of Bed: Head of Bed >30 degrees Ulcer Prophylaxis: protonix Glycemic Control: insulin infusion Created by Jose Ramon Alvarado MD Author:Jose Ramon Alvarado MD [address] [address] [place] [address]Zboazniegfkzqh signed by Jose Ramon Alvarado Md at 03/19/2017 4:54 PM Lee Fernandez MD - 03/19/2017 2:22 PM PDT . Extracorporeal Life Support Service Daily Progress Note Pager #[phone] Type: Veno-Arterial (CPT [address] [place] [address]) Date of insertion: 03/15/2017 Diagnosis:Cardiogenic shock Dressing [...] Unit Attending Progress Note CVICU D2 Assigned #[id number] ICU Admission Reason Most Recent Value ICU [...] long tobacco abuse history, presenting with acute ME and STEMI, resu ltant cardiogenic shock refractory [...] Pager Mellisa Haji MD Admitting Provider Cardiology 44692 Code Status Code Status Full Code Quality section A-Line necessity reviewed: Ytzn-md-ivse blood pressure monitoring CVC necessity reviewed: Medication [...] Date of Service: 03/19/2017 Author:Anurag Ashby MD [address] [address] P Jose Ramon Coburn Md - 03/18/2017 12:56 PM PDTFormatting of this note might be different f rom the original. Cardiovascular Intensive Care Unit Team Progress Note CVICU D2 Assigned #[id number] ICU Admission Reason Most Recent Value ICU [...] & Plan Patient went into VFib during lab pack chemist procedure at [facility]. Was shocked 17 times Targeted temperature management [...] edema. Patient was difficult intubation at outside lab pack chemist. -vanc zosyn stopped today Abnormal CK Unknown [...] Pager Mellisa Haji MD Admitting Provider Cardiology 61977 Quality section A-Line necessity reviewed: Nnwy-dw-yryn blood pressure monitoring CVC necessity reviewed: Hemodynamic monitoring Reardon necessity reviewed: Hourly/Accurate measurement of urinary output for clinical manage ment of critically ill patients FAST HUG Feeding: trickle feeds Analgesia: multimodal Sedation: propofol Thromboprophylaxis: Heparin infusion Head of Bed: Head of Bed >30 degrees Ulcer Prophylaxis: nexium Glycemic Control: insulin infusion Created by Jose Ramon Alvarado MD Author:Jose Ramon Alvarado MD [address] [address] [place] [address]Lnhmybpvsjmfqn signed by Joes Ramon Alvarado Md at 03/18/2017 1:27 PM PDTMoulton, Anurag Soni MD - 03/18/2017 11:56 AM PDTFormatting of this note might be different f rom the original. Cardiovascular Intensive Care Unit Attending Progress Note CVICU D2 Assigned #[id number] ICU Admission Reason Most Recent Value ICU [...] long tobacco abuse history, presenting with acute ME and STEMI, resu ltant cardiogenic shock refractory [...] Pager Mellisa Haji MD Admitting Provider Cardiology 48294 Code Status Code Status Full Code Quality section A-Line necessity reviewed: Wtqw-qr-eiav blood pressure monitoring CVC necessity reviewed: Medication [...] recent imaging available. I saw and evaluated nissa suh patient at the bedside together with Dr. Alvarado.Please see their note for details. I agre e with the assessment and plan as described in the resident's note with the following except ions/additions as noted. Date of Service: 03/18/2017 Author:Anurag Ashby MD [address] [address]Asxsamvadsbxbz signed by Anurag Ashby MD at 03/18/2017 11:59 AM Lee Prince MD - 03/18/2017 11:37 AM PDTFormatting of this note might be different from nissa suh original. . Extracorporeal Life Support Service Daily Progress Note Pager #[phone] Type: Veno-Arterial (CPT [address] [place] [address]) Diagnosis:Cardiogenic shock Dressing changed: no Dressing Changed [...] safe from cardiac standpoint. Lee Amos [facility] - 03/17/2017 10:48 PM PDTFormatting of this note might be different from the origin al. . Extracorporeal Life Support Service Daily Progress Note Pager #[phone] Type: Veno-Arterial (CPT 86417 [place] 15047) Date of insertion: 03/15/2017 Diagnosis:Cardiogenic shock Dressing [...] Unit Attending Progress Note CVICU D2 Assigned #[id number] ICU Admission Reason Most Recent Value ICU [...] long tobacco abuse history, presenting with acute ME and STEMI, resu ltant cardiogenic shock refractory [...] Pager Mellisa Haji MD Admitting Provider Cardiology 17087 Quality section A-Line necessity reviewed: Vmww-st-enry blood pressure monitoring CVC necessity reviewed: Rapid [...] Date of Service: 03/17/2017 Author:Raul Wei MD [address] [address] [place] [address]Yunjazfzapnqcp signed by Raul Wei MD at 03/17/2017 9:20 PM PDT Anurag Ashby MD - 03/17/2017 1:58 PM PDT Cardiovascular Intensive Care Unit Attending Progress Note CVICU D2 Assigned #[id number] ICU Admission Reason Most Recent Value ICU [...] long tobacco abuse history, presenting with acute ME and STEMI, resu ltant cardiogenic shock refractory [...] Pager Mellisa Haji MD Admitting Provider Cardiology 00828 Quality section A-Line necessity reviewed: Uexi-eb-fxto blood pressure monitoring CVC necessity reviewed: Medication [...] Date of Service: 03/17/2017 Author:Anurag Ashby MD [address] [address]Zavctbsgytfavz signed by Anurag Ashby MD at 03/17/2017 2:00 PM P Mauri Calderon - 03/17/2017 1:01 PM PDTTransthoracic echocardiogram completed. Final r eport to follow. eddy Kee DO, MS - 03/17/2017 10:00 AM PDT Cardiovascular Intensive Care Unit Team Progress Note CVICU D2 Assigned #[id number] ICU Admission Reason Most Recent Value ICU [...] & Plan Patient went into VFib during lab pack chemist procedure at [facility]. Was shocked 17 times Targeted temperature management [...] edema. Patient was difficult intubation at outside lab pack chemist. -vanc zosyn stopped today Abnormal CK Unknown [...] Pager Mellisa Haji MD Admitting Provider Cardiology 06092 This patient does not have an Advanced Care Note for this Admission. Please use the Goal of care section of your ICU navigator to document the advanced care discussion. Quality section A-Line necessity reviewed: Wbor-uu-ucuz blood pressure monitoring CVC necessity reviewed: Hemodynamic monitoring Reardon necessity reviewed: Hourly/Accurate measurement of urinary output for clinical manage ment of critically ill patients FAST HUG Feeding: Tube Feeds Analgesia: apap, oxy, hm Sedation: propofol Thromboprophylaxis: Heparin infusion Head of Bed: Head of Bed Flat Ulcer Prophylaxis: Pantoprazole Glycemic Control: insulin infusion Created by Teddy Kee Do, MS [facility] DEPARTMENT: ANE ICU CARDIAC Place of Service:- Inpatient CSN: [id number] Suggested Modifier: GC - Resident Involved Suggested CPT: TO CAMPUS SAFETY OFFICER Author:Teddy Kee Do, MS [address] [address]Jajuzliqmafpyx signed by Teddy Kee DO, MS at 03/17/2017 6:35 PM Raul Hanson MD - 03/16/2017 7:38 PM PDT Cardiovascular Intensive Care Unit Attending Progress Note CVICU D2 Assigned #[id number] ICU Admission Reason Most Recent Value ICU [...] long tobacco abuse history, presenting with acute ME and STEMI, resu ltant cardiogenic shock refractory [...] Pager Mellisa Haji MD Admitting Provider Cardiology 17820 Quality section A-Line necessity reviewed: Uusw-tz-ahvw blood pressure monitoring CVC necessity reviewed: Rapid [...] Date of Service: 03/16/2017 Author:Raul Wei MD [address] [address] [place] [address]Ykwhdvjlmgixof signed by Raul Wei MD at 03/17/2017 11:03 AM PDT Christiano Roche, Jose Ramon - 03/16/2017 5:15 PM PDTFormatting of this note might be different fro m the original. Cardiovascular Intensive Care Unit Team Progress Note CVICU D2 Assigned #[id number] ICU Admission Reason Most Recent Value ICU [...] & Plan Patient went into VFib during lab pack chemist procedure at [facility]. Was shocked 17 times Now on targeted [...] edema. Patient was difficult intubation at outside lab pack chemist. -bridget retana for now Physical Exam vitals [...] Pager Mellisa Haji MD Admitting Provider Cardiology 93537 Quality section A-Line necessity reviewed: Dovb-at-hykz blood pressure monitoring CVC necessity reviewed: Hemodynamic [...] Ramon Alvarado MD Author:Jose Ramon Alvarado MD [address] [address]Efkxnrzjyjujqo signed by Jose Ramon Alvarado Md at 03/16/2017 5:21 PM Teddy Ibrahim DO, [...] Unit Attending Progress Note CVICU D2 Assigned #[id number] ICU Admission Reason Most Recent Value ICU [...] ICU Day #2 after being transferred from [place] in [place] in acute cardiogenic archie ck following an anterior STEMI. Upon arrival to [facility], decision was made to go emergently [...] Pager Mellisa Haji MD Admitting Provider Cardiology 57298 Quality section A-Line necessity reviewed: Fvhb-id-qczr blood pressure monitoring CVC necessity reviewed: Hemodynamic [...] Date of Service: 03/16/2017 Author:Anurag Ashby MD [address] [address]Ldwlmzntzabgwk signed by Anurag Ashby MD at 03/16/2017 1:23 PM Lee Prince MD - 03/16/2017 9:41 AM PDTFormatting of this note might be different from t vikash original. . Extracorporeal Life Support Service Daily Progress Note Pager #[phone] Type: Veno-Arterial (CPT 33556 [place] 475[address]) Diagnosis:Cardiogenic shock Dressing changed: no Dressing Changed [...] Remove IABP Wean Sedation Lee Amos MD reeMirna maria PA-Nae - 03/16/2017 3:42 AM PDT Cardiovascular Intensive Care Unit Clinical Update Note Team: D2 Team Pager: [phone] Attending: Abdulaziz Merrill Name: Ron Mckeon ID: [...] Date of Service: 03/16/2017 Mirna Berumen PA-C [facility] DEPARTMENT: ANE ICU CARDIAC Place of Service:- Inpatient CSN: [id number] Suggested Modifier: None Suggested CPT: TO CAMPUS SAFETY OFFICER Mirna Berumen PA-C Everardo Valladares MD - 03/15/2017 9:04 PM PDT Cardiovascular Intensive Care Unit Attending Progress Note CVICU D2 Assigned #[id number] ICU Admission Reason Most Recent Value ICU Admission reason Cardiogenic Shock filed at 03/15/2017 1531 Hospital admission dx: left anterior descending artery occlusion, needs cabg Days in ICU Days in Hospital Medical Decision Making ICU Day #1 after being transferred from [place] in [place] in acute cardiogenic archie ck following an anterior STEMI. Upon arrival to [facility], decision was made to go emergently [...] Pager Mellisa Haji MD Admitting Provider Cardiology 38749 Quality section A-Line necessity reviewed: Wmps-dp-uffz blood pressure monitoring CVC necessity reviewed: Hemodynamic [...] and the recent imaging available. Seen with PA/TREATER Winston Cole. Please see their note for details. I reviewed the documented findings, all data and the recent imaging available. Date of Service: 03/15/2017 Author:Everardo Cintron MD [address] [address]Xnbflsrodsgbyo signed by Everardo Cintron MD at 03/15/2017 9:[address] - 03/15/2017 2:11 PM PDTTransthoracic echocardiogram completed. Final r eport to follow. Patrick Byrd MD,MPH - 03/15/2017 2:00 PM PDT . Extracorporeal Life Support Service Consult Service Note Pager #[phone] Date: 03/15/17 Author: Patrick Ruiz MD,MPH Consulting Attending: Mellisa Haji MD Reason for Consult: VA ECMO Consideration HPI: 61 year old male who presents this afternoon to [facility] in acute cardiogenic shock second maciej to STEMI / thrombosed L main coronary artery. He was transferred from [place]. His symptoms started this morning around 3am and was seen in [place], [place]. He was diagnosed w ith an anterior STEMI and transferred to the lab pack chemist in [place], [place]. He was found to h ave [...] pressors (epinephrine and dopamine). On arrival to [facility], he was in profound cardiogenic shock and hypoxic. His MAP was in the 40s. He was tach ycardic into the 150s. IABP was increased to 1:2. Past Medical History: Past Medical History: Diagnosis Date Cardiogenic shock (HCC) 03/15/2017 Coronary artery disease 03/15/2017 Hypercholesterolemia Hypertension STEMI (ST elevation myocardial infarction) (HCC) 03/15/2017 Tobacco use Past Surgical History: Past [...] IV, Q30MIN PRN Bolu s from Same Ba/09 1800 glucose chewable tablet 4-40 g 4-40 [...] from cardiogenic shock. Patrick Ruiz MD, MPH catalogue illustrator Trauma, Critical Care & Acute Care Surgery [facility] Patrick Byrd MD,MPH - 03/15/2017 1:48 PM PDT . . Extracorporeal Life Support Service Initiation Note Pager #[phone] Date of service: 03/15/2017 Author: Patrick Ruiz Md,Mph ECMO Type: Veno-Arterial ([place] 72843 [place] [address]) Oxygenation index FiO2: 100 MAP: 22 Diagnosis:Cardiogenic [...] old male who presents this afternoon to [facility] in acute cardiogenic shock secondary to [...] | + +--------+ + + + | ET-CY-DLE-HB,POC RT | Routin | 03/19/2017 | ST [...] | + +--------+ + + + | MO ECMO REV | Routin | 03/19/2017 | [...] +---+--------+ + +--------+ + + + | GT-CN-IGE-HB,POC RT | Routin | 03/19/2017 | ST [...] | + +--------+ + + + | FP-MA-HZQ-HB,POC RT | Routin | 03/19/2017 | ST elevation | Results for this | | | e | 10:06 AM | myocardial | procedure are in the | | | | PDT | infarction involving | results section. | | | | | left main coronary | | | | | | artery (HCC) | | + +--------+ + + + | VN-ZZ-MDL-HB,POC RT | Routin | 03/19/2017 | ST [...] | + +--------+ + + + | JB-FY-HSJ-HB,POC RT | Routin | 03/17/2017 | ST [...] | + +--------+ + + + | UG-MP-KGV-HB,POC RT | Routin | 03/16/2017 | ST [...] | + +--------+ + + + | GJ-XD-PKJ-HB,POC RT | Routin | 03/16/2017 | ST [...] | + +--------+ + + + | US-EU-NJY-HB,POC RT | Routin | 03/15/2017 | ST [...] | + +--------+ + + + | IS-NC-IDS-HB,POC RT | Routin | 03/15/2017 | ST [...] | + +--------+ + + + | ZV-QW-FKO-HB,POC RT | Routin | 03/15/2017 | ST [...] Height: 175 cm Weight: 89 kgBSA: 2.05 [id number] PHYSICIAN:Katarina Ngo | | .FELLOW:Gerson Mejias M.D. [...] right coronary angiography.COMPLICATIONS:None.TECHNIQUE:Right femoral artery | | 6-Fijian 10 cm Adams sheath, 6-Fijian XB 3.5 guide catheter, 5-Fijian JR4 | | catheter.DESCRIPTION OF PROCEDURE:Informed consent [...] modified Seldinger technique and a | | 5-Fijian micropuncture system, a 6-Fijian 10 cm Adams sheath was placed in the right | | femoral artery. A 6-Fijian XB 3.5 guide catheter was inserted into the ascending aorta | | over a guidewire. The guidewire was removed. The catheter was aspirated and flushed. | | The left coronary system was selectively engaged and imaged in multiple projections. A | | 5-Fijian Kymberly right 4 catheter was advanced to [...] DOSE AREA | | PRODUCT: 3749 cGy kg1VDJTCERQGPST:Aortic pressure 87/15, mean aortic pressure 63, heart [...] 03/30/2017 04:50:01DT: | | 03/30/2017 08:34:34Job #: [id number] | |extending from it into the LAD. [...] |YDT/MODL | | | | | | /[id number] | + + CAPILLARY BLOOD GLUCOSE (NO [...] [facility] | [address] | [place], [place] | | | JULIANN SILVA OF CARE | [address] | [address] | | | TESTS | | | [...] [facility] | [address] | [place] [address] | | | SERVICES, CORE | PARK [...] LABORATORY | [address] | [place] [address] | | | SERVICES, CORE | PARK [...] [facility] | [address] | [place] [address] | | | SERVICES, CORE | PARK [...] | | | LABORATORY | | | HONDURAN | | | SERVICES, | | | [...] | + + + + + | [facility] | [address] | [place] [address] | | | ARASH, ИРИНА | JT [...] | + + + + + | [facility] | [address] | [place] [address] | | | ИРИНА ANTOINE | JT [...] | + + + + + | [facility] | [address] | [place] [address] | | | ARASH, ИРИНА | JT [...] [facility] | [address] | [place], [place] | | | R[place]O POINT OF CARE | [address] | [address] | | | TESTS | | | [...] | [facility] | [address] | [place], [place] | | | R[place]ARDO POINT OF CARE | [address] | [address] | | | TESTS | | | [...] [facility] | [address] | [place], [place] | | | JULIANN SILVA OF ALEX[place] | [address] | [address] | | | TESTS | | | [...] | + + + + + | [facility] | [address] [facility] | [place] [address] | | | SERVICES, CORE | JT [...] | | | LABORATORY | | | HONDURAN | | | SERVICES, | | | [...] | + + + + + | [facility] | [address] | [place] [address] | | | SERVICES, CORE | PARK [...] | + + + + + | [facility] | [address] | [place] [address] | | | SERVICES, CORE | JT [...] [facility] | [address] | [place] [address] | | | SERVICES, CORE | PARK [...] + + + | [facility] | [address] | [place], [place] | | | R[facility]ARDO K[facility] OF [facility] | [facility] | [address] | | | TESTS | | | [...] [facility] | [address] | [place], [place] | | | JULIANN SILVA OF [place] | [address] | [address] | | | TESTS | | | [...] [facility] | [address] | [place], [place] | | | JULIANN SILVA OF CARE | [address] | [address] | | | TESTS | | | [...] [facility] | [address] | [place], [place] | | | [place] POINT OF [facility] | [address] | [address] | | | TESTS | | | [...] | + + + + + | [facility] | [address] | [place] [address] | | | SERVICES, CORE | PARK [...] | | | LABORATORY | | | HONDURAN | | | SERVICES, | | | [...] [facility] | [address] | [place] [address] | | | SERVICES, CORE | PARK [...] | + + + + + | [facility] | [address] | [place] [address] | | | SERVICES, CORE | PARK [...] | + + + + + | [facility] | [address] | [place] [address] | | | SERVICES, CORE | PARK [...] [facility] | [address] | [place] [address] | | | SERVICES, CORE | PARK [...] [facility] | [address] | [place], [place] | | | [place] OF [facility] | [address] | [address] | | | TESTS | | | [...] | | | LABORATORY | | | HONDURAN | | | SERVICES, | | | [...] + + + | [facility] | [address] | [place] [address] | | | ARASH, ИРИНА | JT [...] + + + + + + | QTC-BAROD | 437 | ms | [facility] [...] IMPRESSION | by: JANN JORGENSEN | | SANDER | | | | 03-30-2017 22:16:55 | [...] [facility] | [address] | [place], [place] | | | CARDIOLOGY | [address] | [address] | | + + + + + [...] [facility] | [address] | [place], [place] | | | [place] POINT OF CARE | [address] | [address] | | | TESTS | | | [...] | | | LABORATORY | | | HONDURAN | | | SERVICES, | | | [...] | + + + + + | [facility] | [address] | [place] [address] | | | SERVICES, CORE | PARK [...] | + + + + + | [facility] | [address] | [place] [address] | | | SERVICES, CORE | JT [...] formed At | + +---- + | [facility] | [facility] DEPT OF | | And [facility] Adult Echocardiography [facility] [address] | CAR DIOLOGY | | [facility] [place], [place] [address] Ph: | | | Pt Name: RON MCKEON | | | Study Date/Time 03/30/2017 / 10:44:00 AMMRN: [id number] | | | Most recent prior: 03/19/17 #: [id number] | | | No. previous echos: 3DOB: 1955 61 years Heart | | | Rate: 70 bpmHeight: 68.0 in Blood | | | Pressure: 100/55 mm/HgWeight: 197.0 lb | | | Gender: MBSA: 2.03 m2 | | | Order ID: [id number] Clinical Lab Clerk: Shahab Sutton | | | RDCSSonographer 2: Karly Gayle Referring Provider: Ariana | | | [facility] Location: 11KModalities Performed: 2D, Color flow, | [...] Tn, | | | patient's significant recent ME, we activated the lab pack chemist. Patient | | | history has been [...] Report electronically signed by: | | | [id number] Jordon Neville MD (03/30/2017, 2:04:56 PM) Final [...] | | | |Report electronically signed by: [id number] Jordon Neville MD (03/30/2017, 2:04:56 PM) | | | | | | | | | | | | Final | | + +---- + + + | Procedure Note | + + | Interface, Cardiology Results - 03/30/2017 2:04 PM [facility] | | [facility] Echocardiography Laboratory [address] [place] [address] | | [place], [place] [address] Pt Name: RON Chaudhary | | MIKE Study Date/Time 03/30/2017 / 10:44:00 AMMRN: [id number] Most | | recent prior: 03/19/17cc #: [id number] No. previous echos: 3DOB: | | 1955 61 years Heart Rate: 70 bpmHeight: 68.0 in Blood | | Pressure: 100/55 mm/HgWeight: 197.0 lb Gender: MBSA: | | 2.03 m2 Order ID: [id number] Clinical Lab Clerk: Shahab Sutton | | RDCSSonographer 2: [...] elevated Tn, | | patient's significant recent ME, we activated the lab pack chemist. Patient history has been | | obtained [...] Scoring: Report | | electronically signed by: [id number] Jordon Neville MD (03/30/2017, 2:04:56 PM) Final [...] | | | |Report electronically signed by: [id number] Jordon Neville MD (03/30/2017, 2:04:56 PM) | | | | | | | | Final | + + + + + + + | Performing | Address | City/State/Zipcode | Phone Number | | Organization | | | | + + + + + | [facility] | [address] | [place], [place] | | | CARDIOLOGY | [address] | [address] | | + + + + + [...] [facility] | [address] | [place], [place] | | | RICARDO POINT OF CARE | [address] | [address] | | | TESTS | | | [...] [facility] | [address] | [place] [address] | | | ИРИНА ANTOINE | JT [...] [facility] | [address] | [place], [place] | | | JULIANN SILVA OF CARE | [address] | [address] | | | TESTS | | | [...] + + | [facility] | [address] | [place], [place] | | | CARDIOLOGY | [address] | [address] | | + + + + + [...] | | | LABORATORY | | | HONDURAN | | | SERVICES, | | | [...] | + + + + + | [facility] | [address] | [place] [address] | | | ИРИНА ANTOINE | JT [...] | + + + + + | [facility] | [address] | [place] [address] | | | SERVICESИРИНА | JT ALICEA | | | + [...] [facility] | [address] | [place] [address] | | | SERVICES, CORE | PARK [...] + + + + | QTC-KIRBY | 428 | ms | [facility] [...] DEPT OF | [address] | [place], [place] | | | CARDIOLOGY | [address] | [address] | | + + + + + [...] + + + + + + | QTC-JOSSELINTT | 448 | ms | [facility] DE[facility] [...] | | OF | | | | 07-24-2017 09:32:20 | | CARDIOLOGY | | + [...] DEPT OF | [address] | [place], [place] | | | CARDIOLOGY | [address] | [address] | | + + + + + [...] [facility] | [address] | [place] [address] | | | SERVICES, CORE | PARK [...] [facility] | [address] | [place] [address] | | | SERVICES, CORE | PARK [...] | + + + + + | [facility] | [address] | [place] [address] | | | SERVICES, CORE | JT ALICEA | | | + [...] [facility] | [address] | [place] [address] | | | SERVICES, ИРИНА | JT [...] MARIA | [address] | [place], [place] | | | JULIANN SILVA OF [facility] | [address] | [address] | | | TESTS | | | [...] | + + + + + | [facility] | [address] | [place] [address] | | | SERVICES, CORE | JT [...] DEPT OF | [address] | [place], [place] | | | CARDIOLOGY | [address] | [address] | | + + + + + [...] [facility] | [address] | [place], [place] | | | JULIANN SILVA OF [place] | [address] | [address] | | | TESTS | | | [...] [facility] | [address] | [place], [place] | | | RICARDO POINT OF CARE | [address] | [address] | | | TESTS | | | [...] | + + + + + | [facility] | [address] | [place] [address] | | | SERVICES, ИРИНА | JT [...] MARIA | [address] | [place], [place] | | | RICARDO [facility] | [address] | [address] | | | TESTS | | | [...] + | [facility] | [address] | [place] [address] | | | SERVICES, CORE | PARK [...] | | | LABORATORY | | | HONDURAN | | | SERVICES, | | | [...] | + + + + + | [facility] | [address] | [place] [address] | | | SERVICES, CORE | JT [...] (H) | 0.90 - 1.20 INR | [facility] | | | | | | LABORATORY [...] | + + + + + | [facility] | [address] | [place] [address] | | | SERVICES, CORE | PARK [...] [facility] | [address] | [place] [address] | | | SERVICES, CORE | PARK [...] + + + + + | [facility] | [address] | [place] [address] | | | SERVICES, CORE | JT [...] | + + + + + | [facility] | [address] | [place] [address] | | | ИРИНА ANTOINE | JT [...] [facility] | [address] | [place], [place] | | | RICARDO POINT OF CARE | [address] | [address] | | | TESTS | | | [...] [facility] | [address] | [place], [place] | | | JULIANN SILVA OF CARE | [address] | [address] | | | TESTS | | | [...] | | | LABORATORY | | | HONDURAN | | | SERVICES, | | | [...] [facility] | [address] | [place] [address] | | | SERVICES, CORE | PARK [...] | + + + + + | [facility] | [address] | [place] [address] | | | SERVICES, CORE | JT [...] | | | LABORATORY | | | HONDURAN | | | SERVICES, | | | [...] | + + + + + | [facility] | [address] | [place] [address] | | | SERVICES, CORE | PARK [...] [facility] | [address] | [place], [place] | | | JULIANN SILVA OF CARE | [address] | [address] | | | TESTS | | | [...] + | [facility] | [address] | [place], [place] | | | RICARDO KINTA OF [facility] | [address] | [address] | | | TESTS | | | [...] [facility] | [address] | [place] [address] | | | SERVICES, CORE | PARK [...] | | | LABORATORY | | | HONDURAN | | | SERVICES, | | | [...] reference range change effective 717. GFR is | [facility] | | estimated [...] [facility] | [address] | [place] [address] | | | SERVICES, CORE | PARK [...] [facility] | [address] | [place] [address] | | | SERVICES, CORE | PARK [...] [facility] | [address] | [place] [address] | | | SERVICES, CORE | PARK [...] | + + + + + | [facility] | [address] | [place] [address] | | | SERVICES, CORE | JT [...] [facility] | [address] | [place], [place] | | | RICARDO POINT OF CARE | [address] | [address] | | | TESTS | | | [...] | [facility] | [address] | [place], [place] | | | RICARDO POINT OF CARE | [address] | [address] | | | TESTS | | | [...] + + + | [facility] | [address] | [place], [place] | | | RICARDO POINT OF CARE | [address] | [address] | | | TESTS | | | [...] [facility] | [address] | [place], [place] | | | RICARDO POINT OF CARE | [facility] | [address] | | | TESTS | | | [...] [facility] | [address] | [place] [address] | | | SERVICES, CORE | PARK [...] | + + + + + | [facility] | [address] | [place] [address] | | | SERVICES, CORE | PARK [...] | | | LABORATORY | | | HONDURAN | | | SERVICES, | | | [...] | + + + + + | [facility] | [address] | [place] [address] | | | SERVICES, CORE | PARK [...] [facility] | [address] | [place] [address] | | | SERVICES, CORE | PARK [...] | + + + + + | [facility] | [address] | [place] [address] | | | SERVICES, CORE | JT ALICEA | | | + [...] [facility] | [address] | [place], [place] | | | RICARDO POINT OF CARE | [address] | [address] | | | TESTS | | | [...] [facility] | [address] | [place], [place] | | | JULIANN SILVA OF [place] | [address] | [address] | | | TESTS | | | [...] | | | LABORATORY | | | HONDURAN | | | SERVICES, | | | [...] | + + + + + | [facility] | [address] | [place] [address] | | | SERVICES, ИРИНА | JT [...] MARIA | [address] | [place], [place] | | | JULIANN SILVA OF [place] | [address] | [address] | | | TESTS | | | [...] + | [facility] | [address] | [place] [address] | | | ИРИНА ANTOINE | JT [...] | + + + + + | [facility] | [address] | [place] [address] | | | SERVICES, CORE | JT [...] + | [facility] | [address] | [place] [address] | | | SERVICES, CORE | PARK [...] | | | LABORATORY | | | HONDURAN | | | SERVICES, | | | [...] [facility] | [address] | [place] [address] | | | SERVICES, CORE | JT [...] | + + + + + | [facility] | [address] | [place] [address] | | | SERVICES, CORE | PARK [...] | + + + + + | [facility] | [address] | [place] [address] | | | SERVICES, CORE | JT [...] | [facility] | | considered for monitoring exterminator helper glycemic control in patients with: | LABORATORY [...] [facility] | [address] | [place] [address] | | | SERVICES, SPECIAL | [address] | | | | IMM + [...] + +---------+ + + + | BILI D CMNT | No Hemo | | [...] | + + + + + | [facility] | [address] | [place] [address] | | | SERVICES, CORE | JT [...] | | POC | | | JULIANN SLIVA | | | | | | OF [...] [facility] | [address] | [place], [place] | | | RICARDO POINT OF CARE | [address] | [address] | | | TESTS | | | [...] [facility] | [address] | [place] | | | JULIANN SILVA OF CARE | [facility] | [address] | | | TESTS | | | [...] + | [facility] | [address] | [place] [address] | | | SERVICES, CORE | [address] | | | + + + + + TRISTAN SMALLS ONLY (03/25/2017 6:23 PM PDT) + + [...] | [facility] | | | GRAVITY | [place] performed by | | LABORATORY | | [...] | + + + + + | [facility] | [address] | [place] [address] | | | SERVICES, CORE | JT [...] - | | | | | | [place] | | + +-------+ + + + + + | Specimen | + + | Blood - Blood | | (substance) | + + + + + + + | Performing | Address | City/State/Zipcode | Phone Number | | Organization | | | | + + + + + | [facility] | [address] | [place] [address] | | | [place] | | | | + + + [...] [facility] | [address] | [place], [place] | | | JULIANN SILVA OF [place] | [facility] | [address] | | | TESTS | | | [...] (H) | 70 - 99 mg/dL | [facility] - | | | GLUCOSE, | [...] [facility] | [address] | [place], [place] | | | JULIANN SILVA OF CARE | [address] | [address] | | | TESTS | | | [...] | + + + + + | [facility] | [address] | [place] [address] | | | SERVICES, CORE | JT [...] [facility] | [address] | [place] [address] | | | ИРИНА ANTOINE | JT [...] | + + + + + | [facility] | [address] | [place] [address] | | | ИРИНА ANTOINE | JT [...] [facility] | [address] | [place] [address] | | | SERVICES, CORE | PARK [...] | | | LABORATORY | | | HONDURAN | | | SERVICES, | | | [...] | + + + + + | [facility] | [address] | [place] [address] | | | SERVICES, CORE | PARK [...] | + + + + + | [facility] | [address] | [place] [address] | | | ARASH, ИРИНА | JT [...] [facility] | [address] | [place], [place] | | | JULIANN SILVA OF [place] | [facility] | [address] | | | TESTS | | | [...] (H) | 70 - 99 mg/dL | [facility] - | | | GLUCOSE, | [...] [facility] | [address] | [place], [place] | | | RICARDO POINT OF CARE | [address] | [address] | | | TESTS | | | [...] [facility] | [address] | [place], [place] | | | JULIANN SILVA OF [place] | [address] | [address] | | | TESTS | | | [...] ANA MARIA | [address] | [place], [place] | | | JULIANN SILVA OF [facility] | [address] | [address] | | | TESTS | | | [...] [facility] | [address] | [place] [address] | | | SERVICES, CORE | PARK [...] [facility] | [address] | [place] [address] | | | SERVICES, CORE | PARK [...] + + | [facility] | [address] [facility] [address] | [place], [place] | | | [facility] | [facility] | [address] | | | TESTS | | | [...] attempt. Midline lot number | | | [id number]; there was + blood return. The catheter [...] [facility] | [address] | [place], [place] | | | RICARDO POINT OF CARE | [address] | [address] | | | TESTS | | | [...] MARIA | [address] | [place], [place] | | | JULIANN SILVA OF [facility] | [address] | [address] | | | TESTS | | | [...] | + + + + + | [facility] | [address] | [place] [address] | | | SERVICES, CORE | JT [...] [facility] | [address] | [place], [place] | | | JULIANN SILVA OF [place] | [address] | [address] | | | TESTS | | | [...] [facility] | [address] | [place], [place] | | | JULIANN SILVA OF CARE | [facility] | [address] | | | TESTS | | | [...] [facility] | [address] | [place], [place] | | | RICRADO POINT OF CARE | [address] | [address] | | | TESTS | | | [...] [facility] | [address] | [place], [place] | | | JULIANN SILVA OF CARE | [address] | [address] | | | TESTS | | | [...] | + + + + + | [facility] | [address] | [place] [address] | | | SERVICES, CORE | PARK [...] | + + + + + | [facility] | [address] | [place] [address] | | | SERVICES, CORE | [address] | | | + + + + + MAGNESIUM, PLASMA (03/24/2017 12:12 AM PDT) + +---------+ + + + | Component | Value | Ref Range | Performed | Pathologist | | | | | At | Signature | + +---------+ + + + | MAGNESIUM,P | 2.8 (H) | 1.8 - 2.5 mg/dL | [facility] | | | LASMA | | | [...] | + + + + + | [facility] | [address] | [place] [address] | | | SERVICES, CORE | JT [...] | | | LABORATORY | | | HONDURAN | | | SERVICES, | | | [...] + | [facility] | [address] | [place] [address] | | | SERVICES, CORE | PARK [...] | + + + + + | [facility] | [address] | [place] [address] | | | SERVICES, CORE | PARK [...] MARIA | [address] | [place], [place] | | | JULIANN SILVA OF [place] | [address] | [address] | | | TESTS | | | [...] MARIA | [address] | [place], [place] | | | JULIANN SILVA OF CARE | [facility] | [address] | | | TESTS | | | [...] (H) | 70 - 99 mg/dL | [facility] - | | | GLUCOSE, | [...] [facility] | [address] | [place], [place] | | | JULIANN SILVA OF [facility] | [facility] | [address] | | | TESTS | | | [...] MARRANDIAM | [address] | [place], [place] | | | JULIANN SILVA OF [place] | [address] | [address] | | | TESTS | | | [...] | + + + + + | [facility] | [address] | [place] [address] | | | SERVICES, CORE | JT [...] [facility] | [address] | [place], [place] | | | RICARDO POINT OF CARE | [address] | [address] | | | TESTS | | | [...] [facility] | [address] | [place], [place] | | | JULIANN SILVA OF CARE | [address] | [address] | | | TESTS | | | [...] | + + + + + | [facility] | [address] | [place] [address] | | | SERVICES, CORE | JT [...] (H) | 70 - 99 mg/dL | [facility] - | | | GLUCOSE, | [...] [facility] | [address] | [place], [place] | | | JULIANN SILVA OF CARE | [address] | [address] | | | TESTS | | | [...] [facility] | [address] | [place], [place] | | | JULIANN SILVA OF CARE | [address] | [address] | | | TESTS | | | [...] [facility] | [address] | [place], [place] | | | RICARDO POINT OF CARE | [address] | [address] | | | TESTS | | | [...] (H) | 70 - 99 mg/dL | [facility] - | | | GLUCOSE, | [...] + + + | [facility] | [address] | [place], [place] | | | JULIANN SILVA OF [facility] | [address] | [address] | | | TESTS | | | [...] [facility] | [address] | [place], [place] | | | JULIANN SILVA OF CARE | [address] | [address] | | | TESTS | | | [...] | + + + + + | [facility] | [address] | [place] [address] | | | SERVICES, CORE | PARK [...] | + + + + + | [facility] | [address] | [place] [address] | | | SERVICES, CORE | [address] | | | + + + + + MAGNESIUM, PLASMA (03/23/2017 2:00 AM PDT) + +---------+ + + + | Component | Value | Ref Range | Performed | Pathologist | | | | | At | Signature | + +---------+ + + + | MAGNESIUM,P | 2.7 (H) | 1.8 - 2.5 mg/dL | [facility] | | | DENISEMA | | | [...] | + + + + + | [facility] | [address] | [place] [address] | | | SERVICES, CORE | JT [...] | | | LABORATORY | | | HONDURAN | | | SERVICES, | | | [...] [facility] | [address] | [place] [address] | | | SERVICES, CORE | PARK [...] | + + + + + | [facility] | [address] | [place] [address] | | | SERVICES, CORE | [address] | | | + + + + + CAPILLARY BLOOD GLUCOSE (NO CHG), KARY (03/23/2017 12:10 AM PDT) + +---------+ + [...] MARRANDIAM | [address] | [place], [place] | | | JULIANN SILVA OF CARE | [address] | [address] | | | TESTS | | | [...] MARIA | [address] | [place], [place] | | | RICARDO POINT OF CARE | [address] | [address] | | | TESTS | | | [...] (H) | 70 - 99 mg/dL | [facility] - | | | GLUCOSE, | [...] [facility] | [address] | [place], [place] | | | JULIANN SILVA OF CARE | [address] | [address] | | | TESTS | | | [...] [facility] | [address] | [place], [place] | | | JULIANN SILVA OF [place] | [address] | [address] | | | TESTS | | | [...] [facility] | [address] | [place], [place] | | | JULIANN SILVA OF CARE | [address] | [address] | | | TESTS | | | [...] [facility] | [address] | [place] | | | JULIANN SILVA OF CARE | [address] | [address] | | | TESTS | | | [...] [facility] | [address] | [place] [address] | | | ARASH, ИРИНА | JT [...] [facility] | [address] | [place], [place] | | | JULIANN SILVA OF [place] | [facility] | [address] | | | TESTS | | | [...] [facility] | [address] | [place], [place] | | | RICARDO POINT OF CARE | [address] | [address] | | | TESTS | | | [...] [facility] | [address] | [place], [place] | | | HILL, POINT OF CARE | [address] | [address] | | | TESTS | | | [...] [facility] | [address] | [place], [place] | | | JULIANN SILVA OF [place] | [facility] | [address] | | | TESTS | | | [...] [facility] | [address] | [place], [place] | | | RICARDO POINT OF CARE | [address] | [address] | | | TESTS | | | [...] | + + + + + | [facility] | [address] | [place] [address] | | | SERVICES, CORE | JT [...] (H) | 70 - 99 mg/dL | [facility] - | | | GLUCOSE, | [...] [facility] | [address] | [place], [place] | | | JULIANN SILVA OF CARE | [address] | [address] | | | TESTS | | | [...] [facility] | [address] | [place], [place] | | | RICARDO POINT OF CARE | [address] | [address] | | | TESTS | | | [...] [facility] | [address] | [place], [place] | | | JULIANN SILVA OF CARE | [address] | [address] | | | TESTS | | | [...] [facility] | [address] | [place], [place] | | | JULIANN SILVA OF CARE | [address] | [address] | | | TESTS | | | [...] [facility] | [address] | [place], [place] | | | JULIANN SILVA OF CARE | [address] | [address] | | | TESTS | | | [...] [facility] | [address] | [place], [place] | | | RICARDO POINT OF CARE | [address] | [address] | | | TESTS | | | [...] | + + + + + | [facility] | [address] | [place] [address] | | | SERVICES, | [address] [...] | [facility] | [address] | [place] [address] | | | SERVICES, | [address] [...] + + + + | PRODUCT | [id number] | | [facility] | | | UNIT [...] + + + + | EXPIRATION | [id number] | | [facility] | | | DATE [...] + + + + | BLOOD | [id number] | | [facility] | | | PRODUCT [...] | + + + + + | [facility] | [address] | [place] [address] | | | SERVICES, | [address] [...] [facility] | [address] | [place] [address] | | | SERVICES, CORE | PARK [...] [facility] | [address] | [place] [address] | | | SERVICES, CORE | PARK [...] [facility] | [address] | [place] [address] | | | SERVICES, CORE | PARK [...] [facility] | [address] | [place] [address] | | | SERVICES, CORE | PARK [...] | + + + + + | [facility] | [address] | [place] [address] | | | SERVICES, CORE | JT [...] | | | LABORATORY | | | HONDURAN | | | SERVICES, | | | [...] | + + + + + | [facility] | [address] | [place] [address] | | | SERVICES, CORE | [address] | | | + + + + + CAPILLARY BLOOD GLUCOSE (NO CHG), KARY (03/22/2017 3:14 AM PDT) + +---------+ + [...] MARIA | [address] | [place], [place] | | | JULIANN SILVA OF CARE | [address] | [address] | | | TESTS | | | [...] MARIA | [address] | [place], [place] | | | RICARDO POINT OF CARE | [address] | [address] | | | TESTS | | | [...] (H) | 70 - 99 mg/dL | [facility] - | | | GLUCOSE, | [...] R[facility] | [address] | [place], [place] | | | JULIANN SILVA OF CARE | [address] | [address] | | | TESTS | | | [...] MARQUAM | [address] | [place], [place] | | | JULIANN SILVA OF [place] | [address] | [address] | | | TESTS | | | [...] MARIA | [address] | [place], [place] | | | [facility] POINT OF CARE | [address] | [address] | | | TESTS | | | [...] RODGERS | [address] | [place], [place] | | | JULIANN SILVA OF CARE | [address] | [address] | | | TESTS | | | [...] MARQUAM | [address] | [place], [place] | | | JULIANN SILVA OF [place] | [address] | [address] | | | TESTS | | | [...] BLUAM | [address] | [place], [place] | | | JULIANN SILVA OF CARE | [facility] | [address] | | | TESTS | | | [...] R[facility]GERS | [address] | [place], [place] | | | [facility] POINT OF CARE | [address] | [address] | | | TESTS | | | [...] | | | LABORATORY | | | HONDURAN | | | SERVICES, | | | [...] | + + + + + | [facility] | [address] | [place] [address] | | | SERVICES, CORE | JT [...] (H) | 70 - 99 mg/dL | [facility] - | | | GLUCOSE, | [...] + + + | [facility] | [address] | [place], [place] | | | [facility] POINT OF CARE | [address] | [address] | | | TESTS | | | [...] MARQUAM | [address] | [place], [place] | | | R[facility] POINT OF CARE | [facility] | [address] | | | TESTS | | | [...] + | E[facility] | [address] | [place], [place] | | | JULIANN SILVA OF [facility] | [address] | [address] | | | TESTS | | | [...] attempt. Midline lot | | | number [id number]; there was + blood return. The catheter [...] MARQUAM | [address] | [place], [place] | | | JULIANN SILVA OF CARE | [address] | [address] | | | TESTS | | | [...] - MARQU[facility] | [address] | [place], [place] | | | [facility] POINT OF CARE | [address] | [address] | | | TESTS | | | [...] | + + + + + | [facility] | [address] | [place] [address] | | | SERVICES, CORE | JT [...] MARIA | [address] | [place], [place] | | | [place] POINT OF [facility] | [address] | [address] | | | TESTS | | | [...] | + + + + + | [facility] | [address] | [place] [address] | | | SERVICES, CORE | [address]ARK [...] (H) | 70 - 99 mg/dL | [facility] - | | | GLUCOSE, | [...] RODGERS | [address] | [place], [place] | | | [facility] POINT OF CARE | [address] | [address] | | | TESTS | | | [...] MARQUAM | [address] | [place], [place] | | | [place], POINT OF CARE | [address] | [address] | | | TESTS | | | [...] MARQUAM | [address] | [place], [place] | | | JULIANN SILVA OF [place] | [facility] | [address] | | | TESTS | | | [...] RODGERS | [address] | [place], [place] | | | [facility] | [address] | [address] | | | TESTS | | | [...] | + + + + + | [facility] | [address] | [place] [address] | | | SERVICES, ИРИАН | [address] | | | + [...] | + + + + + | [facility] | [address] | [place] [address] | | | SERVICES, CORE | PARK [...] | + + + + + | [facility] | [address] | [place] [address] | | | SERVICES, CORE | PARK [...] | | | LABORATORY | | | HONDURAN | | | SERVICES, | | | [...] | + + + + + | [facility] | [address] | [place] [address] | | | SERVICES, CORE | JT [...] (H) | 70 - 99 mg/dL | [facility] - | | | GLUCOSE, | [...] [facility] | [address] | [place], [place] | | | JULIANN SILVA OF [place] | [address] | [address] | | | TESTS | | | [...] [facility] | [address] | [place], [place] | | | [facility] | [address] | [address] | | | TESTS | | | [...] [facility] | [address] | [place], [place] | | | [facility] | [address] | [address] | | | TESTS | | | [...] R[facility] | [address] | [place], [place] | | | JULIANN SILVA OF [place] | [facility] | [address] | | | TESTS | | | | + + + + + CAPILLARY BLOOD GLUCOSE (NO CHG)KARY (03/20/2017 11:57 PM PDT) + +---------+ + [...] [facility] | [address] | [place], [place] | | | [facility] | [address] | [address] | | | TESTS | | | [...] | + + + + + | [facility] | [address] | [place] [address] | | | SERVICES, ИРИНА | JT [...] [facility] | [address] | [place], [place] | | | JULIANN SILVA OF CARE | [address] | [address] | | | TESTS | | | [...] | [facility] | [address] | [place], [place] | | | JULIANN SILVA OF CARE | [address] | [address] | | | TESTS | | | [...] R[facility] | [address] | [place], [place] | | | JULIANN SILVA OF [place] | [address] | [address] | | | TESTS | | | [...] [facility] | [address] | [place], [place] | | | JULIANN SILVA OF CARE | [address] | [address] | | | TESTS | | | [...] ANA MARIA | [address] | [place], [place] | | | [facility] CARE | [address] | [address] | | | TESTS | | | [...] [facility] | [address] | [place], [place] | | | JULIANN SILVA OF [place] | [address] | [address] | | | TESTS | | | [...] [facility] | [address] | [place], [place] | | | [facility] | [address] | [address] | | | TESTS | | | [...] | + + + + + | [facility] | [address] | [place] [address] | | | SERVICES, CORE | JT [...] [facility] | [address] | [place], [place] | | | JULIANN SILVA OF [place] | [address] | [address] | | | TESTS | | | [...] [facility] | [address] | [place], [place] | | | JULIANN SILVA OF [facility] | [address] | [address] | | | TESTS | | | [...] | + + + + + | [facility] | [address] | [place] [address] | | | SERVICES, CORE | PARK [...] (H) | 70 - 99 mg/dL | [facility] - | | | GLUCOSE, | [...] R[facility] | [address] | [place], [place] | | | [facility] POINT OF [facility] | [address] | [address] | | | TESTS | | | [...] the tip in the proximal gastric body. Bethel Олег | | | catheter in place. [...] with the tip in the proximal gastric body.Bethel Олег catheter in | | place.Limited evaluation of the lungs as technique was tailored for feeding tube.I have | | personally reviewed the images and, if necessary, edited the report. I agree with the | | report as now presented. | | | |Feeding tube is seen in the stomach with the tip in the proximal gastric body. | |Bethel Олег catheter in place. | |Limited evaluation [...] [facility] | [address] | [place], [place] | | | JULIANN SILVA OF [place] | [address] | [address] | | | TESTS | | | [...] [facility] | [address] | [place], [place] | | | JULIANN SILVA OF CARE | [address] | [address] | | | TESTS | | | [...] - [facility] | [address] | [place], [place] | | | JULIANN [facility]ILVA [facility] CARE | [address] | [address] | | | TESTS | | | [...] R[facility] | [address] | [place], [place] | | | JULIANN [facility]VA [facility] CARE | [address] | [address] | | | TESTS | | | [...] [facility] | [address] | [place], [place] | | | JULIANN [facility]IL[facility] CARE | [address] | [address] | | | TESTS | | | [...] [facility] | [address] | [place] [address] | | | SERVICES, CORE | PARK [...] | + + + + + | [facility] | [address] | [place] [address] | | | SERVICES, CORE | JT [...] [facility] | [address] | [place] [address] | | | SERVICES, CORE | JT [...] EULOGIO [facility] | [address] | [place], [place] | | | [facility] CARE | [address] | [address] | | | TESTS | | | | + + + + + X-RAY PORTABLE CHEST 1 VIEW (03/20/2017 6:33 AM PDT) + + | Specimen | + + | | + + + + + | Narrative | Performed At | + + + | EXAM: MO CHEST 1 VIEW 03/20/17 04:29:28 HISTORY: ECMO [...] | + + | Service Account, Arely [email or web address] In Interface - 03/20/2017 10:12 AM PDT EXAM: MO CHEST 1 | | VIEW 03/20/17 04:29:28 [...] [facility] | [address] | [place], [place] | | | [facility] | [address] | [address] | | | TESTS | | | [...] [facility] | [address] | [place], [place] | | | J[facility]ANN [facility] CARE | [address] | [address] | | | TESTS | | | [...] [facility] | [address] | [place], [place] | | | [facility]ARE | [address] | [address] | | | TESTS | | | [...] [facility] | [address] | [place], [place] | | | [facility] | [address] | [address] | | | TESTS | | | [...] | included in the neutrophil count. | SERVICES CORE | + + + + + + + + | Performing | Address | City/State/Zipcode | Phone Number | | Organization | | | | + + + + + | [facility] | [address] | [place] [address] | | | SERVICES, CORE | JT [...] | + + + + + | [facility] | [address] | [place] [address] | | | SERVICES, CORE | [address] | | | + + + + + MAGNESIUM, PLASMA (03/20/2017 1:00 AM PDT) + +---------+ + + + | Component | Value | Ref Range | Performed | Pathologist | | | | | At | Signature | + +---------+ + + + | MAGNESIUM,P | 2.7 (H) | 1.8 - 2.5 mg/dL | [facility] | | | DENISEMA | | | [...] + + | [facility] | [address] | [place] [address] | | | SERVICES, CORE | JT [...] | + + + + + | [facility] | [address] | [place] [address] | | | SERVICES, ИРИНА | JT [...] | | | LABORATORY | | | HONDURAN | | | SERVICES, | | | [...] | + + + + + | [facility] | [address] | [place] [address] | | | SERVICES, CORE | [address] | | | + + + + + CAPILLARY BLOOD GLUCOSE (NO CHG), KARY (03/20/2017 12:59 AM PDT) + +---------+ + [...] [facility] | [address] | [place], [place] | | | JULIANN [facility] CARE | [address] | [address] | | | TESTS | | | [...] ANA MARIA | [address] | [place], [place] | | | RICARDO KINTA OF [facility] | [address] | [address] | | | TESTS | | | [...] | + + + + + | [facility] | [address] | [place] [address] | | | SERVICES, CORE | JT [...] (H) | 70 - 99 mg/dL | [facility] - | | | GLUCOSE, | [...] [facility] | [address] | [place], [place] | | | JULIANN SILVA OF [place] | [facility] | [address] | | | TESTS | | | | + + + + + CAPILLARY BLOOD GLUCOSE (NO CHG) POC (03/19/2017 10:03 PM PDT) + +---------+ [...] [facility] | [address] | [place], [place] | | | [facility]INT OF [facility] | [facility] | [address] | | | TESTS | | | [...] | + + + + + | [facility] | [address] | [place] [address] | | | SERVICES, CORE | PARK [...] [facility] | [address] | [place], [place] | | | [facility] | [address] | [address] | | | TESTS | | | [...] | + + + + + | [facility] | [address] | [place] [address] | | | SERVICES, CORE | JT [...] MARIA | [address] | [place], [place] | | | JULIANN SILVA OF CARE | [address] | [address] | | | TESTS | | | [...] [facility] | [address] | [place] [address] | | | SERVICES, CORE | JT [...] | + + + + + | [facility] | [address] | [place] [address] | | | SERVICES, CORE | JT [...] (H) | 70 - 99 mg/dL | [facility] - | | | GLUCOSE, | [...] [facility] | [address] | [place], [place] | | | JULIANN SILVA OF [place] | [address] | [address] | | | TESTS | | | [...] [facility] | [address] | [place] [address] | | | SERVICES, CORE | PARK [...] | + + + + + | [facility] | [address] | [place] [address] | | | SERVICES, CORE | PARK [...] | + + + + + | [facility] | [address] | [place] [address] | | | ИРИНА ANTOINE | JT [...] | + + + + + | [facility] | [address] | [place] [address] | | | ARASH, ИРИНА | [address] [...] [facility] | [address] | [place], [place] | | | JULIANN SILVA OF CARE | [facility] | [address] | | | TESTS | | | [...] (H) | 70 - 99 mg/dL | [facility] - | | | GLUCOSE, | [...] [facility] | [address] | [place], [place] | | | JULIANN [facility]IL[facility] CARE | [address] | [address] | | | TESTS | | | [...] [facility] | [address] | [place], [place] | | | JULIANN SILVA OF [place] | [facility] | [address] | | | TESTS | | | [...] [facility] | [address] | [place] [address] | | | SERVICES, ИРИНА | JT [...] + | [facility] | [address] | [place], [place] | | | CARDIOLOGY | [address] | [address] | | + + + + + [...] [facility] | [address] | [place], [place] | | | JULIANN SILVA OF [place] | [facility] | [address] | | | TESTS | | | | + + + + + IM-ES-EWR-HB,POC RT (03/19/2017 1:04 PM PDT) + + [...] [facility] | [address] | [place], [place] | | | JULIANN SILVA OF [facility] | [address] | [address] | | | TESTS | | | [...] + + + + | PRODUCT | [id number] | | [facility] | | | UNIT [...] + + + + | EXPIRATION | [id number] | | [facility] | | | DATE [...] + + + + | BLOOD | [id number] | | [facility] | | | PRODUCT [...] | + + + + + | [facility] | [address] | [place] [address] | | | SERVICES, | [address] | | | | TRANSFUSION MEDICINE [...] + + + + | PRODUCT | [id number] | | [facility] | | | UNIT [...] + + + + | EXPIRATION | [id number] | | [facility] | | | DATE [...] + + + + | BLOOD | [id number] | | [facility] | | | PRODUCT [...] | + + + + + | [facility] | [address] | [place] [address] | | | SERVICES, | [address] [...] + + + + | PRODUCT | [id number] | | [facility] | | | UNIT [...] + + + + | EXPIRATION | [id number] | | [facility] | | | DATE [...] + + + + | BLOOD | [id number] | | [facility] | | | PRODUCT [...] [facility] | [address] | [place] [address] | | | SERVICES, | [address] [...] + + + + | PRODUCT | [id number] | | [facility] | | | UNIT [...] + + + + | EXPIRATION | [id number] | | [facility] | | | DATE [...] + + + + | BLOOD | [id number] | | [facility] | | | PRODUCT [...] [facility] | [address] | [place] [address] | | | SERVICES, | [address] [...] [facility] | [address] | [place] [address] | | | SERVICES, CORE | PARK [...] | | | LABORATORY | | | HONDURAN | | | SERVICES, | | | [...] | + + + + + | [facility] | [address] | [place] [address] | | | SERVICES, CORE | [address] | | | + + + + + MAGNESIUM, PLASMA (03/19/2017 1:00 PM PDT) + +-------+ + + + | Component | Value | Ref Range | Performed | Pathologist | | | | | At | Signature | + +-------+ + + + | MAGNESIUM,P | 2.5 | 1.8 - 2.5 mg/dL | E[facility] [...] [facility] | [address] | [place] [address] | | | SERVICES, CORE | PARK [...] | + + + + + | [facility] | [address] | [place] [address] | | | SERVICES, CORE | [address] | | | + + + + + MO ECMO REV (EXT)AND/OR DECANNULATION (03/19/2017 12:36 PM [...] Siria | | | GISELL Preston PhD [facility] [address] [id number] [place], | | | [place] [address] | | + + + ABG-FULL ABL, [...] 93 | 72 - 104 mmHg | [facility] - | | | ARTERIAL, | | [...] [facility] | [address] | [place], [place] | | | [facility]ARE | [facility] | [address] | | | TESTS | | | | + + + + + ABG-FULL ABL, POC (03/19/2017 11:27 AM PDT) + + + [...] | | [facility] - | | | ARTKARY | | | ANA MARIA | | [...] [facility] | [address] | [place], [place] | | | [facility] OF CARE | [facility] | [address] | | | TESTS | | | | + + + + + EY-ZG-PTY-HB,POC RT (03/19/2017 10:24 AM PDT) + + [...] [facility] | | | | | | [facility] POINT | | | | | | [...] MARIA | [address] | [place], [place] | | | JULIANN SILVA OF [place] | [facility] | [address] | | | TESTS | | | [...] (H) | 70 - 99 mg/dL | [facility] - | | | GLUCOSE, | [...] + + + + + | [facility] | [address] | [place], [place] | | | [facility] CARE | [address] | [address] | | | TESTS | | | | + + + + + QR-YZ-NTS-HBPOC RT (03/19/2017 10:06 AM PDT) + + [...] [facility] | [address] | [place], [place] | | | JULIANN SILVA OF [place] | [address] | [address] | | | TESTS | | | | + + + + + PG-AS-EXP-HB,POC RT (03/19/2017 9:51 AM PDT) + + [...] MARIA | [address] | [place], [place] | | | JULIANN SILVA OF [place] | [address] | [address] | | | TESTS | | | [...] + + + + | PRODUCT | [id number] | | [facility] | | | UNIT [...] + + + + | EXPIRATION | [id number] | | [facility] | | | DATE [...] + + + + | BLOOD | [id number] | | [facility] | | | PRODUCT [...] | + + + + + | [facility] | [address] | [place] [address] | | | SERVICES, | [address] [...] + + + + | PRODUCT | [id number] | | [facility] | | | UNIT [...] + + + + | EXPIRATION | [id number] | | [facility] | | | DATE [...] + + + + | BLOOD | [id number] | | [facility] | | | PRODUCT [...] | + + + + + | [facility] | [address] | [place] [address] | | | SERVICES, | [address] | | | | TRANSFUSION MEDICINE [...] + + + + | PRODUCT | [id number] | | [facility] | | | UNIT [...] + + + + | EXPIRATION | [id number] | | [facility] | | | DATE [...] + + + + | BLOOD | [id number] | | [facility] | | | PRODUCT [...] | + + + + + | [facility] | [address] | [place] [address] | | | SERVICES, | [address] [...] + + + + | PRODUCT | [id number] | | [facility] | | | UNIT [...] + + + + | EXPIRATION | [id number] | | [facility] | | | DATE [...] + + + + | BLOOD | [id number] | | [facility] | | | PRODUCT [...] [facility] | [address] | [place] [address] | | | SERVICES, | [address] | | | | TRANSFUSION MEDICINE | | | | + + + + + X-RAY PORTABLE CHEST 1 VIEW (03/19/2017 9:13 AM PDT) + + | Specimen | + + | | + + + + + | Narrative | Performed At | + + + | EXAM: MO CHEST 1 VIEW HISTORY: ECMO. Evaluate cannula | [facility] | | placement. COMPARISON: Yesterday FINDINGS: Endotracheal | RADIOLOGY VOICE | | tube, Bethel-Олег catheter and enteric tube remain in place. [...] Note | + + | Service Account, allGreenup In Interface - 03/19/2017 9:17 AM PDT EXAM: MO CHEST 1 | | VIEW HISTORY: ECMO. Evaluate cannula placement.COMPARISON: YesterdayFINDINGS: | | Endotracheal tube, Bethel-Олег catheter and enteric tube remain in place. [...] | | + +---------+ + + | [facility] | | | | | VOICE [...] [facility] | [address] | [place], [place] | | | [facility] POINT OF CARE | [address] | [address] | | | TESTS | | | [...] + + + | [facility] | [address] | [place], [place] | | | JULIANN SILVA OF CARE | [address] | [address] | | | TESTS | | | [...] [facility] | [address] | [place] [address] | | | SERVICES, CORE | PARK [...] [facility] | [address] | [place], [place] | | | [facility] CARE | [address] | [address] | | | TESTS | | | [...] [facility] | [address] | [place], [place] | | | JULIANN SILVA OF CARE | [address] | [address] | | | TESTS | | | [...] [facility] | [address] | [place], [place] | | | [facility] CARE | [address] | [address] | | | TESTS | | | [...] ANA MARIA | [address] | [place], [place] | | | [facility] POINT OF CARE | [address] | [address] | | | TESTS | | | [...] | + + + + + | [facility] | [address] | [place] [address] | | | SERVICES, CORE | PARK [...] [facility] | [address] | [place], [place] | | | JULIANN SILVA OF CARE | [address] | [address] | | | TESTS | | | [...] [facility] | [address] | [place], [place] | | | R[facility]O POINT OF CARE | [address] | [address] | | | TESTS | | | [...] + + + | [facility] | [address] | [place], [place] | | | JULIANN SILVA OF [facility] | [address] | [address] | | | TESTS | | | [...] [facility] | [address] | [place] [address] | | | SERVICES, CORE | JT [...] [facility] | [address] | [place], [place] | | | JULIANN SILVA OF [place] | [address] | [address] | | | TESTS | | | [...] | + + + + + | [facility] | [address] | [place] [address] | | | SERVICES, CORE | JT [...] | + + + + + | [facility] | [address] | [place] [address] | | | SERVICES, CORE | JT [...] | + + + + + | [facility] | [address] | [place] [address] | | | SERVICES, CORE | PARK [...] [facility] | [address] | [place] [address] | | | SERVICES, CORE | PARK [...] + | [facility] | [address] | [place] [address] | | | SERVICES, CORE | PARK [...] | + + + + + | [facility] | [address] | [place] [address] | | | SERVICES, CORE | JT [...] | | | LABORATORY | | | HONDURAN | | | SERVICES, | | | [...] | + + + + + | [facility] | [address] | [place] [address] | | | SERVICES, CORE | PARK [...] most patients with mech. valves (2.5 | [facility], CORE | | - 3.5) INR APTT Therapeutic Range: | | | (75 - 120) sec Heparin levels of 0.35 - 0.7 U/mL | | + + + + + + + + | Performing | Address | City/State/Zipcode | Phone Number | | Organization | | | | + + + + + | [facility] | [address] | [place] [address] | | | ARASH, CORE | [address] | | | [...] | + + + + + | [facility] | [address] | [place] [address] | | | SERVICES, CORE | JT [...] (H) | 70 - 99 mg/dL | [facility] - | | | GLUCOSE, | [...] [facility] | [address] | [place], [place] | | | JULIANN SILVA OF CARE | [address] | [address] | | | TESTS | | | [...] | + + + + + | [facility] | [address] | [place] [address] | | | SERVICES, CORE | JT [...] (H) | 70 - 99 mg/dL | [facility] - | | | GLUCOSE, | [...] [facility] | [address] | [place], [place] | | | R[facility]O POINT OF CARE | [address] | [address] | | | TESTS | | | [...] [facility] | [address] | [place], [place] | | | JULIANN SILVA OF CARE | [address] | [address] | | | TESTS | | | [...] | + + + + + | [facility] | [address] | [place] [address] | | | ИРИНА ANTOINE | JT [...] (H) | 70 - 99 mg/dL | [facility] - | | | GLUCOSE, | [...] [facility] | [address] | [place], [place] | | | [facility] POINT OF CARE | [address] | [address] | | | TESTS | | | [...] [facility] | [address] | [place], [place] | | | JULIANN SILVA OF [place] | [address] | [address] | | | TESTS | | | [...] | [facility] - ANA MARIA | [address] | [place], [place] | | | JULIANN SILVA OF [facility] | [facility] | [address] | | | TESTS | | | [...] [facility] | [address] | [place] [address] | | | SERVICES, CORE | PARK [...] | + + + + + | [facility] | [address] | [place] [address] | | | SERVICES, CORE | JT [...] (H) | 70 - 99 mg/dL | [facility] - | | | GLUCOSE, | [...] [facility] | [address] | [place], [place] | | | R[facility]O POINT OF CARE | [address] | [address] | | | TESTS | | | [...] | + + + + + | [facility] | [address] | [place] [address] | | | ИРИНА ANTOINE | JT [...] [facility] | [address] | [place], [place] | | | JULIANN SILVA OF CARE | [facility] | [address] | | | TESTS | | | [...] + + + | [facility] | [address] | [place], [place] | | | R[facility] POINT OF CARE | [address] | [address] | | | TESTS | | | [...] [facility] | [address] | [place] [address] | | | SERVICES, CORE | JT [...] 200-499 mg/dL Very High: >=500 mg/dL | ИРИНА ANTOINE | + + + + + + + + | Performing | Address | City/State/Zipcode | Phone Number | | Organization | | | | + + + + + | [facility] | [address] | [place] [address] | | | ИРИНА ANTOINE | PARK [...] [facility] | [address] | [place], [place] | | | JULIANN SILVA OF CARE | [facility] | [address] | | | TESTS | | | [...] [facility] | [address] | [place], [place] | | | [facility] | [address] | [address] | | | TESTS | | | [...] | + + + + + | [facility] | [address] | [place] [address] | | | SERVICES, CORE | JT [...] [facility] | [address] | [place] [address] | | | SERVICES, CORE | PARK [...] | + + + + + | [facility] | [address] | [place] [address] | | | SERVICES, CORE | PARK [...] ordered if Coagulopathy Panel is ordered | E[facility] | | | LABORATORY | | | SERVICES, CORE | + + + + + + + + | Performing | Address | City/State/Zipcode | Phone Number | | Organization | | | | + + + + + | [facility] | [address] | [place] [address] | | | ИРИНА ANTOINE | PARK [...] | | | LABORATORY | | | HONDURAN | | | SERVICES, | | | [...] | + + + + + | [facility] | [address] | [place] [address] | | | ИРИНА ANTOINE | JT [...] [facility] | [address] | [place] [address] | | | SERVICES, CORE | PARK [...] LABORATORY | [address] | [place] [address] | | | SERVICES, CORE | PARK [...] | + + + + + | [facility] | [address] | [place] [address] | | | SERVICES, CORE | JT ALICEA | | | + [...] [facility] | [address] | [place], [place] | | | [facility] | [address] | [address] | | | TESTS | | | [...] ANA MARIA | [address] | [place], [place] | | | [facility] | [address] | [address] | | | TESTS | | | [...] | + + + + + | [facility] | [address] | [place] [address] | | | SERVICES, CORE | JT [...] MARIA | [address] | [place], [place] | | | RICARDO [facility] OF [facility] | [address] | [address] | | | TESTS | | | [...] [facility] | [address] | [place] [address] | | | SERVICES, CORE | PARK [...] | + + + + + | [facility] | [address] | [place] [address] | | | SERVICES, CORE | JT [...] + | [facility] | [address] | [place] [address] | | | [place] | | | [...] [facility] | [address] | [place], [place] | | | JULIANN SILVA OF [place] | [address] | [address] | | | TESTS | | | [...] R[facility] | [address] | [place], [place] | | | JULIANN SILVA OF CARE | [address] | [address] | | | TESTS | | | [...] [facility] | [address] | [place] [address] | | | SERVICES, ИРИНА | JT [...] | + + + + + | [facility] | [address] | [place] [address] | | | ИРИНА ANTOINE | JT [...] (H) | 70 - 99 mg/dL | [facility] - | | | GLUCOSE, | [...] MARIA | [address] | [place], [place] | | | [facility]ARE | [address] | [address] | | | TESTS | | | [...] R[facility] | [address] | [place], [place] | | | JULIANN SILVA OF [place] | [facility] | [address] | | | TESTS | | | | + + + + + X-RAY PORTABLE CHEST 1 VIEW (03/18/2017 6:05 AM PDT) + + | Specimen | + + | | + + + + + | Narrative | Performed At | + + + | EXAM: MO CHEST 1 VIEW HISTORY: ECMO. Evaluate cannula placement. | [facility] | | COMPARISON: Yesterday FINDINGS: Endotracheal tube tip is | RADIOLOGY VOICE | | 2.5 cm above the jefferson. Enteric tube tip in the stomach. [facility] | RECOGNITION | | catheter tip projects [...] Note | + + | Service Account, [employer] Interface - 03/18/2017 8:39 AM PDT EXAM: MO CHEST 1 | | VIEW HISTORY: ECMO. Evaluate cannula placement.COMPARISON: YesterdayFINDINGS: | | Endotracheal tube tip is 2.5 cm above the jefferson. Enteric tube tip in the stomach. | | [facility] catheter tip projects in the main pulmonary [...] [facility] | [address] | [place], [place] | | | JULIANN SILVA OF CARE | [address] | [address] | | | TESTS | | | [...] ANA MARIA | [address] | [place], [place] | | | PELHAM KINTA OF [facility] | [address] | [address] | | | TESTS | | | [...] | + + + + + | [facility] | [address] | [place] [address] | | | SERVICES, CORE | PARK [...] [facility] | [address] | [place], [place] | | | JULIANN SILVA OF CARE | [address] | [address] | | | TESTS | | | [...] | [facility] | [address] | [place], [place] | | | PELHAM POINT OF CARE | [address] | [address] | | | TESTS | | | [...] | + + + + + | [facility] | [address] | [place] [address] | | | SERVICES, | [address] | | | | TRANSFUSION MEDICINE [...] [facility] | [address] | [place] [address] | | | SERVICES, | [address] [...] + + + + | PRODUCT | [id number] | | [facility] | | | UNIT [...] + + + + | EXPIRATION | [id number] | | [facility] | | | DATE [...] + + + + | BLOOD | [id number] | | [facility] | | | PRODUCT [...] | + + + + + | [facility] | [address] | [place] [address] | | | [address] | | | | TRANSFUSION MEDICINE [...] + + + | [facility] | [address] | [place], [place] | | | RICARDO POINT OF CARE | [address] | [address] | | | TESTS | | | [...] [facility] | [address] | [place] [address] | | | SERVICES, CORE | PARK [...] [facility] | [address] | [place] [address] | | | SERVICES, CORE | PARK [...] + | [facility] | [address] | [place] [address] | | | SERVICES, CORE | PARK [...] | + + + + + | [facility] | [address] | [place] [address] | | | SERVICES, CORE | JT [...] | | | LABORATORY | | | HONDURAN | | | SERVICES, | | | [...] [facility] | [address] | [place] [address] | | | SERVICES, CORE | PARK [...] | + + + + + | [facility] | [address] | [place] [address] | | | ИРИНА ANTOINE | [address] | | | + + + + + MAGNESIUM, PLASMA (03/18/2017 1:19 AM PDT) + +-------+ + + + | Component | Value | Ref Range | Performed | Pathologist | | | | | At | Signature | + +-------+ + + + | MAGNESIUM,P | 2.3 | 1.8 - 2.5 mg/dL | [facility] [...] [facility] | [address] | [place] [address] | | | SERVICES, CORE | PARK [...] | + + + + + | [facility] | [address] | [place] [address] | | | SERVICES, ИРИНА | JT [...] [facility] | [address] | [place] | | | JULIANN SILVA OF CARE | [address] | [address] | | | TESTS | | | [...] [facility] | [address] | [place] [address] | | | SERVICES, CORE | [address] | | | + + + + + CULTURE, BLOOD BACTI & YEAST OHMENDY (03/18/2017 12:46 AM PDT) + + + [...] | + + + + + | [facility] | [address] | [place] [address] | | | SERVICES, CORE | JT [...] [facility] | [address] | [place], [place] | | | JULIANN SILVA OF CARE | [facility] | [address] | | | TESTS | | | [...] (H) | 60 - 99 mg/dL | [facility] - | | | GLUCOSE, | [...] [facility] | [address] | [place], [place] | | | RICARDO POINT OF CARE | [address] | [address] | | | TESTS | | | [...] [facility] | [address] | [place], [place] | | | JULIANN SILVA OF [place] | [address] | [address] | | | TESTS | | | [...] [facility] | [address] | [place], [place] | | | JULIANN SILVA OF CARE | [facility] | [address] | | | TESTS | | | [...] | + + + + + | [facility] | [address] | [place] [address] | | | SERVICES, CORE | PARK [...] (H) | 60 - 99 mg/dL | [facility] - | | | GLUCOSE, | | [...] [facility] | [address] | [place], [place] | | | JULIANN SILVA OF CARE | [address] | [address] | | | TESTS | | | [...] [facility] | [address] | [place] [address] | | | SERVICES, ИРИНА | JT [...] | + + + + + | [facility] | [address] | [place] [address] | | | ИРИНА ANTOINE | JT [...] + | [facility] | [address] | [place] [address] | | | SERVICES, CORE | PARK [...] | + + + + + | [facility] | [address] | [place] [address] | | | SERVICES, CORE | JT [...] | + + + + + | [facility] | [address] | [place] [address] | | | ИРИНА ANTOINE | JT [...] (H) | 60 - 99 mg/dL | [facility] - | | | GLUCOSE, | [...] [facility] | [address] | [place], [place] | | | RICARDO POINT OF [facility] | [address] | [address] | | | TESTS | | | [...] [facility] | [address] | [place], [place] | | | JULIANN SILVA OF [place] | [facility] | [address] | | | TESTS | | | [...] | + + + + + | [facility] | [address] | [place] [address] | | | ИРИНА ANTOINE | JT [...] (H) | 60 - 99 mg/dL | [facility] - | | | GLUCOSE, | [...] [facility] | [address] | [place], [place] | | | RICARDO POINT OF CARE | [address] | [address] | | | TESTS | | | [...] MARIA | [address] | [place], [place] | | | GURINDER SILVA | [facility] | [address] | | | TESTS | | | [...] + + + + | PRODUCT | [id number] | | [facility] | | | UNIT [...] + + + + | EXPIRATION | [id number] | | [facility] | | | DATE [...] + + + + | BLOOD | [id number] | | [facility] | | | PRODUCT [...] [facility] | [address] | [place] [address] | | | SERVICES, | [address] [...] + + + + | PRODUCT | [id number] | | [facility] | | | UNIT [...] + + + + | EXPIRATION | [id number] | | [facility] | | | DATE [...] + + + + | BLOOD | [id number] | | [facility] | | | PRODUCT [...] [facility] | [address] | [place] [address] | | | SERVICES, | [address] [...] - [facility] | [address] | [place], [place] | | | RICARDO POINT OF CARE | [address] | [address] | | | TESTS | | | [...] | + + + + + | [facility] | [address] [facility] | [place] [address] | | | SERVICES, CORE | JT [...] | + + + + + | [facility] | [address] | [place] [address] | | | ИРИНА ANTOINE | JT [...] 4.0 | LABORATORY | | mmol/L | ARASH, CORE | + + + + + + + + | Performing | Address | City/State/Zipcode | Phone Number | | Organization | | | | + + + + + | [facility] | [address] | [place] [address] | | | SERVICES, CORE | PARK [...] | + + + + + | [facility] | [address] [facility] | [place] [address] | | | SERVICES, CORE | JT [...] | | | LABORATORY | | | HONDURAN | | | SERVICES, | | | [...] the MDRD equation recommended by the | [facility] | | National Kidney Disease Education Program. [...] [facility] | [address] | [place] [address] | | | SERVICES, CORE | PARK [...] | + + + + + | [facility] | [address] | [place] [address] | | | SERVICES, ИРИНА | JT [...] [facility] | [address] | [place] [address] | | | SERVICES, CORE | PARK [...] | + + + + + | [facility] | [address] | [place] [address] | | | SERVICES, CORE | JT [...] [facility] | [address] | [place], [place] | | | RICARDO POINT OF CARE | [address] | [address] | | | TESTS | | | [...] | + + + + + | [facility] | [address] | [place] [address] | | | SERVICES, CORE | JT [...] (H) | 60 - 99 mg/dL | [facility] - | | | GLUCOSE, | [...] + + + | [facility] | [address] | [place], [place] | | | JULIANN SILVA OF [place] | [address] | [address] | | | TESTS | | | | + + + + + JANNET MARROQUIN DUPLEX LOWER EXTREMITY RT (03/17/2017 12:31 PM [...] Note | + + | Service Account, [employer] In Interface - 03/17/2017 6:18 PM PDT [...] Note | + + | Service Account, [employer] In Interface - 03/17/2017 6:17 PM PDT [...] [facility] | [address] | [place], [place] | | | RICARDO POINT OF CARE | [address] | [address] | | | TESTS | | | | + + + + + CK, PLASMA (03/17/2017 11:03 AM PDT) + + + + + + | Component | Value | Ref Range | Performed | Pathologist | | | | | At | Signature | + + + + + + | CK | 10,998 (H) | 49 - 397 U/L | [facility] | | | | | | LABORATORY [...] | + + + + + | [facility] | [address] | [place] [address] | | | SERVICES, CORE | PARK [...] formed At | + +---- + | [facility] | [facility] OF | | And [facility] Adult Echocardiography Laboratory [address] | | [address] [place], [place] [address] Ph: | | | Pt Name: RON MCKEON | | | Study Date/Time 03/17/2017 / 10:30:26 AMMRN: [id number] | | | Most recent prior: 03/15/2017Acc #: [id number] | | | No. previous echos: 1DOB: 1955 61 years Heart | | | Rate: 139 bpmHeight: 69.0 in Blood | | | Pressure: 133/83 mm/HgWeight: 258.0 lb | | | Gender: MBSA: 2.30 m2 | | | Order ID: [id number] Clinical Lab Clerk: Mauri Domingo [facility] | | | Referring Provider: Mellisa Rubalcava [facility] | | | Performed: Limited 2D, Color Doppler and Spectral Doppler | | | Limited.Study Quality: Fair.Exam Indication: Heart failure; ECMO; s/p | | | STEMIHistory: 61 year old male with a past medical history significant | | | for hypertension, hyperlipidemia, ongoing tobacco use and | | | pre-diabetes who is transferred to [facility] with cardiogenic shock in the | [...] Report electronically | | | signed by: [id number] Jen Ovalle MD, PhD (03/17/2017, 1:53:40 PM) [...] | | | |Report electronically signed by: [id number] Jen Ovalle MD, PhD (03/17/2017, | | |1:53:40 PM) | | | | | | | | | | | | Final | | + +---- + + + | Procedure Note | + + | Interface, Cardiology Results - 03/17/2017 1:53 PM PDT [facility] | | [facility] Echocardiography Laboratory [facility] | | [place], [place] [address] Pt Name: RON Chaudhary | | MIKE Study Date/Time 03/17/2017 / 10:30:26 AMMRN: [id number] Most | | recent prior: 03/15/2017Acc #: [id number] No. previous echos: 1DOB: | | 1955 61 years Heart Rate: 139 bpmHeight: 69.0 in Blood | | Pressure: 133/83 mm/HgWeight: 258.0 lb Gender: MBSA: | | 2.30 m2 Order ID: [id number] Clinical Lab Clerk: Mauri Domingo | | RDCSReferring Provider: Mellisa HajiPatient Location: 12KModalities Performed: | | Limited 2D, Color Doppler and Spectral Doppler Limited.Study Quality: Fair.Exam | | Indication: Heart failure; ECMO; s/p STEMIHistory: 61 year old male with a past medical | | history significant for hypertension, hyperlipidemia, ongoing tobacco use and | | pre-diabetes who is transferred to [facility] with cardiogenic shock in the setting [...] | | Scoring: Report electronically signed by: [id number] Jen Ovalle MD, PhD (03/17/2017, | | [...] | | | |Report electronically signed by: [id number] Jen Ovalle MD, PhD (03/17/2017, | |1:53:40 PM) | | | | | | | | Final | + + + + + + + | Performing | Address | City/State/Zipcode | Phone Number | | Organization | | | | + + + + + | [facility] | [address] | [place], [place] | | | CARDIOLOGY | [address] | [address] | | + + + + + [...] [facility] | [address] | [place] | | | JULIANN SILVA OF CARE | [address] | [address] | | | TESTS | | | [...] [facility] | [address] | [place], [place] | | | RICARDO POINT OF CARE | [address] | [address] | | | TESTS | | | [...] [facility] | [address] | [place] [address] | | | SERVICES, CORE | PARK [...] | + + + + + | [facility] | [address] | [place] [address] | | | SERVICES, CORE | JT [...] | + + + + + | [facility] | [address] | [place] [address] | | | SERVICES, CORE | JT [...] [facility] | [address] | [place] | | | RICARDO POINT OF CARE | [address] | [address] | | | TESTS | | | [...] [facility] | [address] | [place] | | | RICARDO POINT OF CARE | [address] | [address] | | | TESTS | | | [...] [facility] | [address] | [place] | | | JULIANN SILVA OF CARE | [facility] | [address] | | | TESTS | | | [...] [facility] | [address] | [place] [address] | | | SERVICES, CORE | PARK [...] | + + + + + | [facility] | [address] | [place] [address] | | | ARASH, ИРИНА | [address] | | | + + + + + X-RAY PORTABLE CHEST 1 VIEW (03/17/2017 5:37 AM PDT) + + | Specimen | + + | | + + + + + | Narrative | Performed At | + + + | EXAM: MO CHEST 1 VIEW 03/17/17 04:53:29 HISTORY: On [...] Note | + + | Service Account, [employer] Res In Interface - 03/17/2017 9:44 AM PDT EXAM: MO CHEST 1 | | VIEW 03/17/17 04:53:29 [...] [facility]NA [facility] | [address] | [place], [place] | | | RICARDO POINT OF CARE | [address] | [address] | | | TESTS | | | [...] | + + + + + | [facility] | [address] | [place] [address] | | | SERVICES, CORE | JT [...] | | | LABORATORY | | | HONDURAN | | | SERVICES, | | | [...] [facility] | [address] | [place] [address] | | | ARASH, ИРИНА | PARK [...] | + + + + + | [facility] | [address] | [place] [address] | | | SERVICES, ИРИНА | JT [...] [facility] | [address] | [place], [place] | | | HILL, POINT OF CARE | [address] | [address] | | | TESTS | | | [...] [facility] | [address] | [place] [address] | | | ИРИНА ANTOINE | JT [...] [facility] | [address] | [place] [address] | | | SERVICES, CORE | PARK [...] [facility] | [address] | [place] [address] | | | SERVICES, CORE | JT [...] | + + + + + | [facility] | [address] | [place] [address] | | | SERVICES, CORE | PARK [...] [facility] | [address] | [place] [address] | | | SERVICES, CORE | PARK [...] [facility] | [address] | [place] [address] | | | SERVICES, CORE | PARK [...] | | | FREE | | | ARASH, | | | [...] [facility] | [address] | [place] [address] | | | SERVICES, CORE | PARK [...] | + + + + + | [facility] | [address] | [place] [address] | | | SERVICES, CORE | JT [...] [facility] | [address] | [place] [address] | | | SERVICES, CORE | PARK [...] | + + + + + | [facility] | [address] | [place] [address] | | | SERVICES, CORE | JT [...] DEPT OF | [address] | [place], [place] | | | CARDIOLOGY | [address] | [address] | | + + + + + NF-RF-KPO-HB,POC RT (03/17/2017 12:44 AM PDT) + + [...] | | ART, POC | | | [facility] | | | | | | JULIANN [...] [facility] | [address] | [place], [place] | | | HILL, POINT OF CARE | [address] | [address] | | | TESTS | | | [...] [facility] | [address] | [place] | | | JULIANN SILVA OF [place] | [facility] | [address] | | | TESTS | | | [...] MA is normal. Normal LY30 | [facility]NA [facility]VA, | | corresponds to normal fibrinolysis [...] [facility] | [address] | [place], [place] | | | JULIANN SILVA OF [place] | [address] | [address] | | | TESTS | | | [...] | + + + + + | [facility] | [address] | [place] [address] | | | ИРИНА ANTOINE | JT [...] (H) | 60 - 99 mg/dL | [facility] - | | | GLUCOSE, | [...] [facility] | [address] | [place], [place] | | | RICARDO POINT OF [facility] | [address] | [address] | | | TESTS | | | [...] [facility] | [address] | [place], [place] | | | JULIANN SILVA OF [place] | [facility] | [address] | | | TESTS | | | [...] | + + + + + | [facility] | [address] | [place] [address] | | | ARASH, CORE | [address] | | | [...] [facility] | [address] | [place], [place] | | | RICARDO POINT OF CARE | [address] | [address] | | | TESTS | | | [...] | + + + + + | [facility] | [address] | [place] [address] | | | SERVICES, CORE | JT [...] [facility] | [address] | [place], [place] | | | RICARDO POINT OF CARE | [address] | [address] | | | TESTS | | | [...] + + + | [facility] | [address] [facility] [address] | [place], [place] | | | PELHAM KINTA OF [facility] | [address] | [address] | | | TESTS | | | | + + + + + ART LINE (03/16/2017 3:32 PM PDT) + + + | Narrative | Performed At | + + + | Teddy Kee DO, MS 03/16/2017 2:43 PM ARTERIAL LINE | | [...] | | verifies correct patient, procedure, equipment, software support representative and | | | site/side marked as [...] [facility] | [address] | [place] [address] | | | SERVICES, CORE | PARK [...] [facility] | [address] | [place] [address] | | | SERVICES, CORE | PARK [...] | + + + + + | [facility] | [address] | [place] [address] | | | SERVICES, CORE | JT [...] | + + + + + | [facility] | [address] | [place] [address] | | | SERVICES, ИРИНА | JT [...] | | | LABORATORY | | | HONDURAN | | | SERVICES, | | | [...] | + + + + + | [facility] | [address] | [place] [address] | | | SERVICES, CORE | PARK [...] | + + + + + | [facility] | [address] | [place] [address] | | | SERVICES, CORE | JT [...] | + + + + + | [facility] | [address] | [place] [address] | | | SERVICES, CORE | PARK [...] (H) | 60 - 99 mg/dL | [facility] - | | | GLUCOSE, | [...] [facility] | [address] | [place], [place] | | | JULIANN SILVA OF [place] | [facility] | [address] | | | TESTS | | | | + + + + + CAPILLARY BLOOD GLUCOSE (NO CHG) POC (03/16/2017 1:33 PM PDT) + +-------+ [...] [facility] | [address] | [place], [place] | | | JULIANN SILVA OF CARE | [facility] | [address] | | | TESTS | | | [...] [facility] | [address] | [place], [place] | | | JULIANN SILVA OF [place] | [facility] | [address] | | | TESTS | | | [...] [facility] | [address] | [place], [place] | | | RICARDO POINT OF CARE | [address] | [address] | | | TESTS | | | [...] | + + + + + | [facility] | [address] | [place] [address] | | | SERVICES, CORE | JT [...] | | | LABORATORY | | | HONDURAN | | | SERVICES, | | | [...] | + + + + + | [facility] | [address] | [place] [address] | | | SERVICES, CORE | [address] | | | + + + + + CAPILLARY BLOOD GLUCOSE (NO CHG), KARY (03/16/2017 11:12 AM PDT) + +---------+ + [...] [facility] | [address] | [place], [place] | | | JULIANN SILVA OF CARE | [address] | [address] | | | TESTS | | | [...] [facility] | [address] | [place] [address] | | | SERVICESИРИНА | [address] | | | + [...] [facility] | [address] | [place] | | | JULIANN SILVA OF [facility] | [facility] | [address] | | | TESTS | | | | + + + + + OPERATION RECORD (03/16/2017 9:30 AM PDT) + + | Procedure Note | + + | Dale Mak MD - 03/15/2017 3:42 PM PDT Date of Service: 03/15/2017 Attending | | Surgeon:Ron Powell MD. Senior Account Executive(s):Dale Mak MD. | | Preoperative Diagnoses: 1.Cardiogenic [...] The | | patient was transferred to [facility] for further management. At [facility], the patient continued | | to [...] cannulation with micropuncture | | wire. A 7-Fijian sheath was placed in an antegrade direction down the SFA for distal | | perfusion. A 19-Fijian arterial cannula was placed in a retrograde [...] was present for the entire | | procedure.Dale Mak MDHS/MODLDD: 03/15/2017 15:23:00DT: 03/15/2017 15:42:27Job #: | | [id number] | | | |A 19-Fijian arterial cannula was placed in a retrograde [...] |HS/MODL | | | | | | /[id number] | + + CBC (HEMOGRAM) ONLY (03/16/2017 [...] [facility] | [address] | [place] [address] | | | SERVICES, CORE | PARK [...] | + + + + + | [facility] | [address] | [place] [address] | | | SERVICES, CORE | PARK [...] | + + + + + | [facility] | [address] | [place] [address] | | | SERVICES, CORE | PARK [...] [facility] | [address] | [place], [place] | | | JULIANN SILVA OF [place] | [facility] | [address] | | | TESTS | | | [...] (H) | 60 - 99 mg/dL | [facility] - | | | GLUCOSE, | [...] [facility] | [address] | [place], [place] | | | RICARDO POINT OF CARE | [address] | [address] | | | TESTS | | | [...] [facility] | [address] | [place], [place] | | | JULIANN SILVA OF [place] | [address] | [address] | | | TESTS | | | | + + + + + X-RAY PORTABLE CHEST 1 VIEW (03/16/2017 5:44 AM PDT) + + | Specimen | + + | | + + + + + | Narrative | Performed At | + + + | EXAM: MO CHEST 1 VIEW HISTORY: Evaluate cannula placement. heart | [facility] | | failure. COMPARISON: Yesterday FINDINGS: Endotracheal | RADIOLOGY VOICE | | tube, Bethel-Олег catheter and enteric tube remain in place. [...] Service Account, [employer] In Interface - 03/16/2017 8:27 AM PDT EXAM: MO CHEST 1 | | VIEW HISTORY: Evaluate cannula placement. heart failure.COMPARISON: YesterdayFINDINGS: | | Endotracheal tube, Bethel-Олег catheter and enteric tube remain in place. [...] [facility] | [address] | [place], [place] | | | RICARDO POINT OF CARE | [address] | [address] | | | TESTS | | | [...] + + | Performing | Address | City/State/[facility] | Phone Number | | Organization | | | | + + + + + | [facility] | [address] | [place], [place] | | | JULIANN SILVA OF [place] | [facility] | [address] | | | TESTS | | | | + + + + + IO-DI-DDO-HB,POC RT (03/16/2017 3:42 AM PDT) + + [...] [facility] | [address] | [place], [place] | | | RICARDO POINT OF CARE | [address] | [address] | | | TESTS | | | [...] [facility] | [address] | [place], [place] | | | JULIANN SILVA OF CARE | [address] | [address] | | | TESTS | | | [...] | + + + + + | [facility] | [address] | [place] [address] | | | SERVICES, CORE | JT [...] | | | | | | JULIANN SLIVA | | | | | | OF [...] fibrin | ANA MARIA SILVA | | crosslinking suggesting HYPERcoagulability MA is [...] [facility] | [address] | [place], [place] | | | JULIANN SILVA OF [facility] | [facility] | [address] | | | TESTS | | | [...] [facility] | [address] | [place] [address] | | | SERVICES, CORE | PARK [...] | + + + + + | [facility] | [address] | [place] [address] | | | SERVICES, CORE | PARK [...] | | | LABORATORY | | | HONDURAN | | | SERVICES, | | | [...] | + + + + + | [facility] | [address] | [place] [address] | | | SERVICES, CORE | PARK [...] [facility] | [address] | [place] [address] | | | SERVICES, CORE | PARK [...] [facility] | [address] | [place] [address] | | | SERVICES, CORE | JT [...] | + + + + + | [facility] | [address] | [place] [address] | | | ARASH, CORE | [address] | | | [...] | + + + + + | [facility] | [address] | [place] [address] | | | ИРИНА ANTOINE | JT [...] (H) | 60 - 99 mg/dL | [facility] - | | | GLUCOSE, | [...] + + + | [facility] | [address] | [place], [place] | | | JULIANN SILVA OF [facility] | [address] | [address] | | | TESTS | | | [...] | + + + + + | [facility] | [address] | [place] [address] | | | SERVICES, CORE | PARK [...] MARIA | [address] | [place], [place] | | | R[facility] POINT OF CARE | [facility] | [address] | | | TESTS | | | [...] | + + + + + | [facility] | [address] | [place] [address] | | | SERVICES, CORE | JT [...] | | | LABORATORY | | | HONDURAN | | | SERVICES, | | | [...] | + + + + + | [facility] | [address] | [place] [address] | | | SERVICES, CORE | [address] | | | + + + + + MO-AD-JUY-HB,POC RT (03/16/2017 12:22 AM PDT) + + [...] [facility] | [address] | [place], [place] | | | [facility]INT OF CARE | [address] | [address] | | | TESTS | | | [...] [facility] | [address] | [place], [place] | | | JULIANN SILVA OF [place] | [facility] | [address] | | | TESTS | | | | + + + + + CAPILLARY BLOOD GLUCOSE (NO CHG)KARY (03/15/2017 11:33 PM PDT) + +---------+ + [...] [facility] | [address] | [place], [place] | | | JULIANN SILVA OF CARE | [address] | [address] | | | TESTS | | | [...] (H) | 60 - 99 mg/dL | [facility] - | | | GLUCOSE, | [...] [facility] | [address] | [place], [place] | | | JULIANN SILVA OF [facility] | [address] | [address] | | | TESTS | | | | + + + + + X-RAY PORTABLE CHEST 1 VIEW (03/15/2017 9:44 PM PDT) + + | Specimen | + + | | + + + + + | Narrative | Performed At | + + + | EXAM: MO CHEST 1 VIEW HISTORY: Evaluate new endotracheal [...] Note | + + | Service Account, [employer] In Interface - 03/16/2017 8:27 AM PDT EXAM: MO CHEST 1 | | VIEW HISTORY: Evaluate [...] [facility] | [address] | [place], [place] | | | RICARDO POINT OF CARE | [address] | [address] | | | TESTS | | | [...] - [facility] | [address] | [place], [place] | | | RICARDO POINT OF CARE | [address] | [address] | | | TESTS | | | [...] [facility] | [address] | [place] [address] | | | SERVICES, ИРИНА | PARK [...] | + + + + + | [facility] | [address] | [place] [address] | | | SERVICES, CORE | PARK [...] | + + + + + | [facility] | [address] | [place] [address] | | | [address] | | | + + + [...] | | | laryngopharynx plus edema. A [employer] Airway Exchange catheter was | | | [...] [facility] | [address] | [place], [place] | | | JULIANN SILVA OF CARE | [address] | [address] | | | TESTS | | | | + + + + + RK-KA-DIW-HB,POC RT (03/15/2017 7:39 PM PDT) + + [...] [facility] | [address] | [place], [place] | | | RICARDO POINT OF CARE | [address] | [address] | | | TESTS | | | [...] [facility] | [address] | [place], [place] | | | JULIANN SILVA OF CARE | [facility] | [address] | | | TESTS | | | [...] [facility] | [address] | [place], [place] | | | JULIANN SILVA OF [facility] | [address] | [address] | | | TESTS | | | | + + + + + X-RAY PORTABLE CHEST 1 VIEW (03/15/2017 5:51 PM PDT) + + | Specimen | + + | | + + + + + | Narrative | Performed At | + + + | STUDY: MO CHEST 1 VIEW 03/15/17 17:40:08 COMPARISON: 03/15/17 [...] Account, Radiant Res In Interface - 03/15/2017 6:20 PM PDT STUDY: MO CHEST 1 | | VIEW 03/15/17 17:40:08COMPARISON: [...] given by: Power of | | | criminal attorney Patient identity confirmed per policy: Yes Team Pause: | | | Immediatly prior to the procedure a pause per protocol was called. A | | | pause verifies correct patient, procedure, equipment, software support representative | | | and site/side marked as [...] modified Seldinger technique | | | (a dshipheo-kjvh-wuy-cpjgtu-ovzg-iopo-ozacmxl-zyr-afutflyn) was used | | | for vessel [...] Jose Ramon Alvarado | | | R2, [facility] Emergency Medicine Personal Pager: [phone] | | | | | + + [...] | + + + + + | [facility] | [address] | [place] [address] | | | SERVICES, CORE | JT [...] [facility] | [address] | [place], [place] | | | JULIANN SILVA OF CARE | [address] | [address] | | | TESTS | | | [...] [facility] | [address] | [place] | | | JULIANN SILVA OF [facility] | [address] | [address] | | | TESTS | | | | + + + + + X-RAY PORTABLE CHEST 1 VIEW (03/15/2017 4:03 PM PDT) + + | Specimen | + + | | + + + + + | Narrative | Performed At | + + + | EXAM: MO CHEST 1 VIEW 03/15/17 15:42:37 HISTORY: ECMO [...] Note | + + | Service Account, [employer] In Interface - 03/15/2017 6:18 PM PDT EXAM: MO CHEST 1 | | VIEW 03/15/17 15:42:37 [...] | [facility] - | | | KARY LOJA | | | ANA MARIA | | [...] [facility] | [address] | [place] | | | JULIANN SILVA OF [place] | [address] | [address] | | | TESTS | | | [...] [facility] | [address] | [place], [place] | | | JULIANN SILVA OF CARE | [address] | [address] | | | TESTS | | | [...] [facility] | [address] | [place], [place] | | | RICARDO POINT OF CARE | [address] | [address] | | | TESTS | | | [...] Q 6 hrs x 24 hrs | [facility] | | | LABORATORY | | | ИРИНА ANTOINE | + + + + + + + + | Performing | Address | City/State/Zipcode | Phone Number | | Organization | | | | + + + + + | [facility] | [address] | [place] [address] | | | ИРИНА ANTOINE | [address] [...] [facility] | [address] | [place] [address] | | | SERVICES, CORE | PARK [...] | + + + + + | [facility] | [address] | [place] [address] | | | SERVICES, CORE | JT [...] [facility] | [address] | [place] [address] | | | SERVICES, CORE | PARK [...] | | | LABORATORY | | | HONDURAN | | | SERVICES, | | | [...] the MDRD equation recommended by the | [facility] | | National Kidney Disease Education Program. [...] | + + + + + | [facility] | [address] | [place] [address] | | | SERVICES, [facility] | [address] | | | + [...] Professor and Chief Division of Cardiothoracic Surgery [facility] | | | [facility] - Mail Code [phone] | | | [place] [id number] | | + + + X-RAY PORTABLE CHEST 1 VIEW (03/15/2017 2:32 PM PDT) + + | Specimen | + + | | + + + + + | Narrative | Performed At | + + + | STUDY: MO CHEST 1 VIEW 03/15/17 14:21:08 COMPARISON: 03/15/17. [...] Interface - 03/15/2017 2:46 PM PDT STUDY: MO CHEST 1 | | VIEW 03/15/17 14:21:08COMPARISON: [...] + + + + | PRODUCT | [id number] | | [facility] | | | UNIT [...] + + + + | EXPIRATION | [id number] | | [facility] | | | DATE [...] + + + + | BLOOD | [id number] | | [facility] | | | PRODUCT [...] | + + + + + | [facility] | [address] | [place] [address] | | | SERVICES, | [address] [...] + + + + | PRODUCT | [id number] | | [facility] | | | UNIT [...] + + + + | EXPIRATION | [id number] | | [facility] | | | DATE [...] + + + + | BLOOD | [id number] | | [facility] | | | PRODUCT [...] | + + + + + | [facility] | [address] | [place] [address] | | | SERVICES, | [address] | | | | TRANSFUSION MEDICINE [...] + + + + | PRODUCT | [id number] | | [facility] | | | UNIT [...] + + + + | EXPIRATION | [id number] | | [facility] | | | DATE [...] + + + + | BLOOD | [id number] | | [facility] | | | PRODUCT [...] | + + + + + | [facility] | [address] | [place] [address] | | | SERVICES, | [address] | | | | TRANSFUSION MEDICINE [...] + + + + | PRODUCT | [id number] | | [facility] | | | UNIT [...] + + + + | EXPIRATION | [id number] | | [facility] | | | DATE [...] + + + + | BLOOD | [id number] | | [facility] | | | PRODUCT [...] [facility] | [address] | [place] [address] | | | SERVICES, | [address] | | | | TRANSFUSION MEDICINE | | | | + + + + + RU-RW-OES-HB,POC RT (03/15/2017 1:23 PM PDT) + + [...] [facility] | [address] | [place], [place] | | | JULIANN SILVA OF [place] | [address] | [address] | | | TESTS | | | [...] [facility] | [address] | [place] | | | JULIANN SILVA OF CARE | [address] | [address] | | | TESTS | | | [...] Performed At | + + + | [facility] | [facility] DEPT OF | | [facility] Adult Echocardiography Laboratory [address] CARDIOLOGY | | [place], [place] [address] Ph: | | | Pt Name: RON MCKEON | | | Study Date/Time 03/15/2017 / 12:54:21 PMMRN: [id number] | | | Most recent prior: -Acc #: [id number] | | | No. previous echos: 0DOB: 1955 61 years Heart Rate: | | | 145 bpmHeight: Blood Pressure: | | | 90/67 mm/HgWeight: 249.0 lb Gender: | | | MBSA: 2.34 m2 Order ID: | | | [id number] Clinical Lab Clerk: Vahid Parmar [facility] Referring Provider: | | | Gaurav HobbsPatient Location: 12KModalities Performed: 2D, Color | | [...] Report | | | electronically signed by: [id number] Yajaira Johnson MD (03/15/2017, | | | [...] | | | |Report electronically signed by: [id number] Yajaira Johnson MD (03/15/2017, 3:38:52 PM) | | | | | | | | | | | | Final | | + + + + + | Procedure Note | + + | Interface, Cardiology Results - 03/15/2017 3:38 PM [facility] [employer] | | [facility] Echocardiography Laboratory [address] [place] [address] | | [place], [place] [address] Pt Name: RNO Neena | | MIKE Study Date/Time 03/15/2017 / 12:54:21 PMMRN: [id number] Most | | recent prior: -Acc #: [id number] No. previous echos: 0DOB: 1955 61 | | years Heart Rate: 145 bpmHeight: Blood Pressure: 90/67 | | mm/HgWeight: 249.0 lb Gender: MBSA: 2.34 m2 | | Order ID: [id number] Clinical Lab Clerk: Vahid Parmar RCSReferring Provider: | | Gaurav M AnjelPatient Location: 12KModalities Performed: 2D, Color flow, Spectral [...] values Report electronically signed by: | | [id number] Yajaira Johnson MD (03/15/2017, 3:38:52 PM) Final [...] | | | |Report electronically signed by: [id number] Yajaira Johnson MD (03/15/2017, 3:38:52 PM) | | | | | | | | Final | + + + + + + + | Performing | Address | City/State/[facility]code | Phone Number | | Organization | | | | + + + + + | [facility] | [address] | [place], [place] | | | CARDIOLOGY | [address] | [address] | | + + + + + X-RAY PORTABLE CHEST 1 VIEW (03/15/2017 12:46 PM PDT) + + | Specimen | + + | | + + + + + | Narrative | Performed At | + + + | STUDY: MO CHEST 1 VIEW 03/15/17 12:12:08 COMPARISON: None. [...] Interface - 03/15/2017 1:10 PM PDT STUDY: MO CHEST 1 | | VIEW 03/15/17 12:12:08COMPARISON: [...] + + + + | [facility] | [address] | ms | [facility] [...] + + | [facility] | [address] | [place], [place] | | | CARDIOLOGY | [address] | [address] | | + + + + + [...] [facility] | [address] | [place] [address] | | | SERVICES, | [address] [...] | + + + + + | [facility] | [address] | [place] [address] | | | ARASH, | [address] | | | | TRANSFUSION MEDICINE [...] + | [facility] | [address] | [place] [address] | | | SERVICES, CORE | PARK [...] [facility] | [address] | [place] [address] | | | SERVICES, CORE | PARK [...] [facility] | [address] | [place] [address] | | | SERVICES, | [address] [...] | + + + + + | [facility] | [address] | [place] [address] | | | ИРИНА ANTOINE | JT [...] | + + + + + | [facility] | [address] | [place] [address] | | | SERVICES, CORE | PARK [...] [facility] | [address] | [place] [address] | | | SERVICES, CORE | JT [...] | | | LABORATORY | | | HONDURAN | | | SERVICES, | | | [...] | + + + + + | [facility] | [address] | [place] [address] | | | SERVICES, CORE | [address] | | | + + + + + PR-XH-EAG-HB,POC RT (03/15/2017 12:16 PM PDT) + + [...] [facility] | [address] | [place] | | | JULIANN SILVA OF [facility] | [facility] | [address] | | | TESTS | | | [...] | | | | last modification) on 03/28/17 | | | | | | | at 0900, Until Discontinued | | | | | | + +--------+ + +------+------+ +-------+ + +---+---+ | Given | 04/01/20 | 1,000 mg | | | | | 17 9:03 | | | | | | PM PDT | | | | +-------+ + +---+---+ | Given | 04/01/20 | 1,000 mg | | | | | 17 4:23 | | | | | | PM PDT | | | | +-------+ + +---+---+ + +---+ | | | + +---+ | artificial tears (dextran | | | 70-hypromellose) (NATURE'S TEARS) | | | 0.1-0.3 % ophthalmic drops 1 | | | drop 1 drop, Both Eyes, | | | NEEDED, Starting Thu03/24/17 at | | | 1825, Until Thu04/02/17 at 2030, | | | Dry Eyes | | + +---+ | | | + +---+ + +-------+ +-------+---+---+ | aspirin EC tablet [...] | | | 03/15/17 at 1202, Until [facility] 04/02/17 | | | at 2030, 2nd line for no BM in | | | past 2 days OR if no response to | | | MIRALAX or if patient unable to | | | tolerate oral | | + +---+ | | | + +---+ + +-------+ +--------+---+---+ | cholecalciferol (Vitamin D3) [...] mL, intravenous, NEEDED, | | | Starting e 03/24/17 at 1120, | | | Until [facility] 04/02/17 at 2031, CBG | | | less than 70 mg/dL if patient | | | unable to take PO, per Adult | | | Hypoglycemia Protocol | | + +---+ | | | + +---+ + +-------+ +-------+---+---+ | famotidine (PEPCID) tablet [...] | | | + +---+ + +-------+ +---------+---+---------+ | insulin lispro (HUMALOG) [...] PDT | | | | | Until [facility] 04/02/17 at 203, | | | | | | | [...] 9:37 | | | | | on 03/31/17 at 1345, Until | | AM PDT [...] | | | | | | Until [facility] 04/02/17 at 2031, severe | | | | | | [...] | | | | | 04/02/17 at 1, 1st line - for | | | [...] PDT | | | | +-------+ +---------+---+---+ + +---+ | | | + +---+ | warfarin (COUMADIN) tablet 10 | | | mg 10 mg, oral, EVERY EVENING, | | | First dose (after last | | | modification) on Radha 04/02/17 at | | | 2100, Until Discontinued | | + +---+ | | | + +---+ documented in this encounter
--- OUTSIDE RECORDS SUMMARY | ~2020-03-04 | XMS | Encounter Summary ---
Demographics + + + | Address | [address] | | | [place] [address] | + + + | Home Phone | | + + + | Preferred Language | Unknown | + + + | Marital Status | | + + + | Buddhism Affiliation | Unknown | + + + | Race | Unknown | + + + | Ethnic Group | Unknown | + + + Author + + + | Author | [facility] | | | and [place] | + + + | Organization | [facility] | | | and [place] | + + + | Address | Unknown | + + + | Phone | Unavailable | + + + Support + + + + + | Name | Relationship | Address | Phone | + + + + + | Venice Hood | ECON | [place], [place] | | | | | [address] | | + + + + + Care Team Providers + +------+ + | Care Camp Counselor Name | Role | Phone | [...] | | | | | | | [place] | [...] Description | +--------+---------+ + + + | 10/03/ | Surgery | [facility] | Delmer Gomez MD | [facility] | | 2017 | | [facility] | [address] | | | | | [address] | [place] | | | | | [place] | [id number] | | | | | [address] | | | | | | [phone] | | | +--------+---------+ + + + [...] + + + | Blood Pressure | 97/64 | 10/03/2017 1:46 PM | | | | | PST | | + + + + + | Pulse | 114 | 10/03/2017 1:46 PM | | | | | PST | | + + + + + | Temperature | 38.1 C (100.6 F) | 10/03/2017 2:37 PM | | | | | PST | | + + + + + | Respiratory Rate | 23 | 10/03/2017 1:46 PM | | | | | PST | | + + + + + | Oxygen Saturation | 97% | 10/03/2017 1:46 PM | | | | | PST | | + + + + + | Inhaled Oxygen | - | - | | | Concentration | | | | + + + + + | Weight | 97 kg (213 lb 13.5 | 10/03/2017 10:46 AM | | | | oz) | PST | | + + + + + | Height | - | - | | + + + + + | Body Mass Index | 28.56 | 09/02/2017 7:56 AM | | | | | PST | | + + + + + documented in this encounter Discharge Summaries Destinee Trejo MD - 10/09/2017 3:20 PM PSTFormatting of this note might be different fro m the original. DISCHARGE SUMMARY Pt. Name/Age/: Ron Hood 61 y.o. 1955 Date of Admission: 10/03/2017 Date of Discharge: 10/10/2017 Admitting Physician: Herman Masterson MD PCP: Chato Matson Discharging Physician: Destinee Trejo Consultants: Dr. Gomez (cardiology) Primary Discharge Dx: 1. Acute hypoxic respiratory failure thought to be from septic shock 2/2 Pneumonia/influen za requiring Mechanical vent. s/p extubation on 10/05 2. Acute on chronic systolic CHF exacerbation. Improving. 3. NSTEMI in the setting of known severe ischemic CAD/recent ant wall CO in 03/2017 c/b card iogenic shock s/p ECMO in [facility] 4. Paroxysmal atrial flutter Patient Active Problem List Diagnosis Acute anterior wall CO CAD (coronary artery disease) Ischemic cardiomyopathy Pulmonary [...] 127 (H) 70 - 109 mg/dL Procedures: LHC on 10/03- severe in-stent stenosis of [...] history of CAD with recent anterior wall CO, post PTCA and st ents of the left main, LAD and LCx on 03/15/17 + left atrial appendage thrombus c/b cardiac sh ock/respiratory failure requiring Tx to [facility]; was on ECMO, who was a transfer this time from [facility] on 10/03 for acute respiratory failure requiring intubation after prese nting with progressively worsening shortness of breath. Hospital Course, including Complications: He was found to have NSTEMI with new LBBB and elevated tropinin and Septic shock thought t o be from pneumonia/influenza; started on ceftriaxone, azithromycin and tamiflu. He underwen t [facility] on 10/03- severe in-stent stenosis of [...] over 24 hours. Pneum[address] is resolving. Dr. Gomez discussed with Luz Maria haynes at [facility] but patient refused to go to [facility] for re-vascu larization. He preferred to go to [facility]. Dr. Gomez discussed with Dr. Bedoya at [facility] and he was accepted by him. [...] of known severe ischemic CAD/recent ant wall CO in 03/2017 c/b card iogenic shock s/p ECMO in [facility] - troponin peaked to 26 - [facility] on 10/03- severe in-stent stenosis of left main to ostial LAD stent, severe instent s tenosis ostial proximal left circumflex stent, mild to mod RCA disease. - Echo 10/03- EF 40%, thinning and severe hypokinesis distal anterior, anterior septal and a pical segments. - continue aspirin, plavix and statin. C/w coreg. - will resume ACEI if creatinine stable. - Dr. Gomez discussed with Cardiology at [facility] and was accepted at [facility] for re-vascularization but patient refused and wanted to be transferred to [facility]. Dr. Gomez discussed with cardiology at [facility] and was accepted by them. - [...] results on DC: None Disposition: Transfer to [facility] cardiology service Dr. Bedoya accepting physician Discharge Procedure Orders Transfer patient to other facility Order Comments: [facility] when bed is available. Code Status/Advance Directive (Pertinent discussions/declarations): Full Code Time spent on Discharge and Coordination of post-hospital care: >30 minutes Electronically signed by: Destinee Trejo, 10/10/2017 15:01 [facility] documented in this en counter Medications at Time of Discharge + + [...] documented as of this encounter Progress Notes Rhea Oneal RN - 10/10/2017 3:55 PM PSTCalled [facility], RN informed that Lotus sabillon to call back this RN, phone number given. Electronically signed by: Rhea carroll RN 10/10/2017 15:58 Rhea Caal RN - 10/10/2017 1:59 PM PSTPatient called RN to bedside, patient to go to [facility], wants to get better and do the procedure. RN to inform MD Electronically signed by: Josselin Ventura RN 10/10/2017 14:00 Electronically signed by Rhea Ventura RN at 2:00 PM Rhea Caal RN - 10/10/2017 1:06 [address] PSTDr. Jason at beds surinder to explain to the patient about leaving against medical advice, patient verbalizing that we have done many interventions and that it is not a safe choice. RN at bedside, patient un derstands consequences and that he is leaving against medical advice. Electronically signed by: Rhea Ventura RN 10/10/2017 13:08 [place], Miguel garcia MD - 10/09/2017 2:59 PM PST . PATIENT NAME: Ron Hood : 1955: AGE: 61 y.o. ADMISSION [...] The patient will be transferred today to [facility] for coronary revascularization. MEDICATIONS: Current Facility-Administered Medications Medication Dose Route Frequency Provider Last Rate Last Dose albuterol-ipratropium (DUONEB) 2.5-0.5 mg/3 mL nebulizer solution 3 mL 3 mL Nebulizati on RT Q4H Clinton Burnett MD 3 mL at 10/09/17 1225 amiodarone (PACERONE) tablet 400 mg 400 mg Oral BID Dsetinee Trejo MD 400 mg at 10/25 0908 [...] 1-2 tablet 1-2 tablet Oral Q4H P ALFONSO Burnett MD 2 tablet at 10/09/17 1450 [...] 40 mg Oral BID AC Carlos Graham PharmKatie 40 m g at 10/09/17 0634 ALLERGIES [...] on amiodarone PLAN OR RECOMMENDATIONS: Transfer to [facility] audiology service Dr. Segura accepting physician I appreciate the opportunity of participating in the care of this patient. Delmer Gomez MD, 10/09/2017 15:00 Olga, MD Destinee - 10/09/2017 8:16 AM PST [facility]G Hospitalist Progress Note Ron Hood is a 61 y.o. male INTERVAL HPI: He is a 61 y.o. male with a history of CAD with recent anterior wall CO, post PTCA and sten ts of the left main, LAD and LCx on 03/15/17 + left atrial appendage thrombus c/b cardiac shoc k/respiratory failure requiring Tx to [facility]; was on ECMO, who was a transfer this time from [facility] on 10/03 for acute respiratory failure [...] on 4 liters NC - continue ceftriaxone D#03/16. Completed 5 days of azithromycin and tamiflu on 10/08 - continue BiPAP PRN - continue duonebs - Acappella 2. Acute on chronic systolic CHF exacerbation - improving - On lasix PRN - strict I and O, daily weight - BiPAP PRN 3. NSTEMI in the setting of known severe ischemic CAD/recent ant wall CO in 03/2017 c/b card iogenic shock s/p ECMO in [facility] - troponin peaked to 26 - [facility] on 10/03- severe in-stent stenosis of left main to ostial LAD stent, severe instent s tenosis ostial proximal left circumflex stent, mild to mod RCA disease. - Echo 10/03- EF 40%, thinning and severe hypokinesis distal anterior, anterior septal and a pical segments. - continue aspirin, plaxix and statin. C/w coreg. - will resume ACEI if creatinine stable. - Dr. Gomez will consult with cardiology team at [facility] Re: planning for revascularization today 4. [...] as outlined above. Destinee Trejo 10/09/2017 8:16 [facility] Destinee Espinoza MD - 10/08/2017 12:20 PM PST [facility]G Hospitalist Progress Note Ron Hood is a 61 y.o. male INTERVAL HPI: He is a 61 y.o. male with a history of CAD with recent anterior wall CO, post PTCA and sten ts of the left main, LAD and LCx on 03/15/17 + left atrial appendage thrombus c/b cardiac shoc k/respiratory failure requiring Tx to [facility]; was on ECMO, who was a transfer this time from [facility] on 10/03 for acute respiratory failure [...] % on high-flow nasal ca nnula, heated, programmer developer system at flow rate 14L/min Temp Min: [...] weaning oxygen to Sp02>=94% - continue ceftriaxone D#01/14. Stop azithromycin and tamiflu. - continue BiPAP at night and PRN - continue duonebs - Acappella 2. Acute on chronic systolic CHF exacerbation - improving - start lasix 40 mg PO daily - strict I and O, daily weight - BiPAP hs and PRN 3. NSTEMI in the setting of known severe ischemic CAD/recent ant wall CO in 03/2017 c/b card iogenic shock s/p ECMO in [facility] - troponin peaked to 26 - [...] resume ACEI if creatinine stable. - Dr. Gomez will consult with cardiology team at [facility] Re: planning for revascularization today 4. [...] as outlined above. Destinee Trejo 10/08/2017 12:20 [facility] Destinee Espinoza MD - 10/07/2017 2:38 PM PST [facility] PMG Hospitalist Progress Note Ron Hood is a 61 y.o. male INTERVAL HPI: He is a 61 y.o. male with a history of CAD with recent anterior wall CO, post PTCA and sten ts of the left main, LAD and LCx on 03/15/17 + left atrial appendage thrombus c/b cardiac shoc k/respiratory failure requiring Tx to [facility]; was on ECMO, who was a transfer this time from [facility] on 10/03 for acute respiratory failure [...] of known severe ischemic CAD/recent ant wall CO in 03/2017 c/b card iogenic shock s/p ECMO in [facility] - troponin peaked to 26 - [facility] on 10/03- severe in-stent stenosis of left main to ostial LAD stent, severe instent s tenosis ostial proximal left circumflex stent, mild to mod RCA disease. - Echo 10/03- EF 40%, thinning and severe hypokinesis distal anterior, anterior septal and a pical segments. - continue aspirin, plaxix, metoprolol and statin - will resume ACEI if creatinine stable. - Dr. Gomez will consult with cardiology team at [facility] Re: planning for revascularization 4. Paroxysmal [...] as outlined above. Destinee Trejo 10/07/2017 14:38 [facility] Delmer Mcmanus MD - 10/07/2017 12:07 PM PST PATIENT NAME: Ron Hood : 1955: AGE: 61 y.o. ADMISSION [...] Units 0-6 Units Subc utaneous 4x Daily and HS Ganga Lind MD nitroglycerin (NITROSTAT) SL tablet 0.4 mg 0.4 mg Sublingual Q5 Min PRN Delmer Dai MD nystatin (MYCOSTATIN) powder Topical BID Destinee Trejo MD pantoprazole (PROTONIX) DR tablet 40 mg 40 mg Oral BID KELLY Graham, PharmD 40 m g at 10/09/17 0634 [...] acute hypoxic respiratory failure. COMPARISON: 03/15/2017. FIN PAYAL: Portable frontal chest radiograph. Endotracheal tube approximately [...] RECOMMENDATIONS: Continue current medical management We'll contact [facility] regarding transfer and revascularization plann ing I appreciate the opportunity of participating in the care of this patient. Delmer Gomez MD, 10/09/2017 12:08 Carlos Maldonado, PharmD - 10/07/2017 9:59 AM PST IV TO PO PER PHARMACY PROTOCOL Ron Hood is a 61 y.o. year old male admitted on 10/03/2017 9:31 for Pulmonary chanda ma [J81.1] Acute upper GI bleeding [K92.2] Temp: [36.3 C (97.3 F)-37.5 C (99.5 F)] 36.3 C (97.3 F) Pulse: [75-115] 100 Resp: [8-41] 13 BP: (87-150)/(54-114) 111/62 Recent Labs Lab 10/07/17 0351 10/06/17 0348 10/05/17 0427 10/04/17 0345 10/03/17 1129 HGB 14.3 13.7 12.4* 13.2* 16.8 HCT 43.3 41.4 37.6* 40.5 50.3 MCV 89.9 89.6 90.4 90.3 90.5 MCH 29.7 29.7 29.7 29.5 30.1 MCHC 33.0 33.1 32.9 32.6 33.3 RDW 15.3* 15.0* 16.0* 16.0* 16.2* Recent Labs Lab 10/07/17 0351 10/06/17 0348 10/05/17 0427 10/04/17 0345 10/04/17 0343 10/03/17 1851 [...] orally BID Carlos Graham PharmD 10/07/2017 9:59 [facility] IV TO PO Collaborative Practice Protocol Delmer Mcmanus MD - 10/06/2017 5:17 PM PST PATIENT NAME: Ron Hood : 1955: AGE: 61 y.o. ADMISSION [...] troponin Will consult with cardiology team at [facility] regarding planning for coronary revascularization prior to discharge home I appreciate the opportunity of participating in the care of this patient. Delmer Gomez MD, 10/06/2017 17:17 unruthie, MD Destinee - 10/06/2017 12:45 PM PST [facility] PMG Hospitalist Progress Note Ron Hood is a 61 y.o. male INTERVAL HPI: He is a 61 y.o. male with a history of CAD with recent anterior wall CO, post PTCA and sten ts of the left main, LAD and LCx on 03/15/17 + left atrial appendage thrombus c/b cardiac shoc k/respiratory failure requiring Tx to [facility]; was on ECMO, who was a transfer this time from [facility] on 10/03 for acute respiratory failure [...] 95 % on high-flow nasal can nula, programmer developer system, heated at flow rate 14L/min Temp [...] now present Confirmed by FLORY العلي MD ([id number]) on 10/06/2017 7:17:27 AM POC Glucose Result [...] of known severe ischemic CAD/recent ant wall CO in 03/2017 c/b card iogenic shock s/p ECMO in [facility] - troponin peaked to 26 - [...] as outlined above. Destinee Trejo 10/06/2017 12:45 [facility] Clinton Hernandez MD - 10/05/2017 9:17 PM PSTHospitalist follow-up At approximately 4 PM, there'll [...] the patient had conversion back to sinus rhythm. Delmer Mcmanus MD - 10/05/2017 5:27 PM PSTFormatting of this not e might be different from the original. PATIENT NAME: Ron Hood : 1955: AGE: 61 y.o. ADMISSION [...] in the care of this patient. Delmer Gomez MD, 10/05/17 Demetra Rodriguez RN - 10/05/2017 3:53 PM PSTPt had large BM, became SOB, tachycardic, placed on BiPap, Nitro gtt started for HTN.Adenosine given x2 Started on Amiodarone. Tommie off, Amio bolus complete. Aw aiting cont gtt from pharmacy. 4: 27 PM Clinton Hernandez MD - 10/05/2017 2:49 PM PSTHospitalist follow-up Patient extubated this afternoon out difficulty to 4 L nasal cannula. Terry Landa MD - 10/05/2017 10:48 AM PSTA sked to perform urgent upper endoscopy on this very ill patient. We'll proceed with upper e ndoscopy with anesthesia services assisting in monitoring and treating the patient's 1 dynam ics status. Consent form status will be ascertained prior to the procedure but certainly th e patient qualifies for an emergent procedure due to large volume GI bleed in the circumstan ce of required dual anti platelet therapyElectronically signed by Terry Weir MD at 10/05 10:50 AM Clinton Hernandez MD - 10/05/2017 9:39 AM PST [facility] PMG Hospitalist Progress Note Ron Hood is a 61 y.o. male ASSESSMENT [...] stopped just prior to extubation were g damir to proceed with an endoscopy to rule [...] as outlined above. Clinton Burnett 10/05/2017 9:39 [facility] Portions of this chart may have been created with [employer] voice recognition software. Occasi onal wrong-word or sound-alike substitutions may have occurred due to the inherent canseco itations of voice recognition software. Please read the chart carefully and recognize, using context, where these substitutions have occurred Clinton Hernandez MD - 0 10/04/2017 12:41 PM PST [facility] PMG Hospitalist Progress Note Ron Hood is a 61 y.o. male ASSESSMENT [...] as outlined above. Clinton Burnett 10/04/2017 12:42 [facility] Portions of this chart may have been created with [employer] voice recognition software. Occasi onal wrong-word or sound-alike substitutions may have occurred due to the inherent canseco itations of voice recognition software. Please read the chart carefully and recognize, using context, where these substitutions have occurred Sandy Gonzalez RN - 0 10/04/2017 11:38 AM PSTRN pulled right femoral artery sheath using sterile technique, held pr essure for 15 minutes transparent dressing with non-stick telfa placed to site. No noted ble eding or hematoma to site. Sandy Ogden RN Demetra Rodriguez RN - 10/04/2017 11:30 AM PSTFebrile, temp 38.4. Tylenol given per order. Cooling measures initiat ed. Delmer Mcmanus MD - 10/04/2017 10:49 AM PST PATIENT NAME: Ron Hood : 1955: AGE: 61 y.o. ADMISSION [...] Ganga Lind MD 100 mL/hr a t 10/03/172140 lidocaine 1%-EPINEPHrine 1:100,000 injection 5 mL 5 mL Infiltration Once PRN Delmer Dai MD nitroglycerin (NITROSTAT) SL tablet 0.4 mg 0.4 mg Sublingual Q5 Min PRN Delmer Dai MD norepinephrine in NS (LEVOPHED) 16 mcg/mL infusion 1-30 mcg/min Intravenous Titrated A dalia Lind MD Stopped at 10/03/172124 oseltamivir (TAMIFLU) 6 mg/mL suspension 30 mg [...] :consider ischemia/infarction Confirmed by ZOHRA BREWER, FLORY ([id number]) on 10/04/2017 10:35:54 AM Influenza A PCR [...] 10/03/2017 5.0 5.0 - 8.0 Final Specific [place] 10/03/2017 1.006 1.001 - 1.030 Final PROTEIN [...] in the care of this patient. Delmer Gomez MD, 10/04/2017 10:49 1 hour is a hazy she is yesterday 1 1:06 AM PSTRobKelly platt, PharmD - 10/03/2017 9:24 PM PST PHARMACY SERVICES: ADMISSION MEDICATION REVIEW Ron Hood is a 61 y.o. male admitted on 10/03/17. Patient is not a reliable historian. 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 Clarita Morales PharmKatie - 10/03/2017 11:44 AM PSTFormatting of this note might be different from the origi nal. RENAL DOSE ADJUSTMENT PER PHARMACY PROTOCOL: Subjective/Objective: Ron Hood is a 61 y.o. year old [...] PROTOCOL Electronically signed by: Clarita Ford Chi, PharmD 10/03/2017 11:42 documented in this encounter H&P Notes Ganga Lind MD - 10/03/2017 10:02 AM PSTFormatting of this note might be different fr om the original. [facility] [place] [facility]PITAL[facility] HISTORY & PHYSICAL Patient: Ron Hood : 1955: Age: 61 y.o. MedRec: [id number] Admission date: 10/03/2017 Hospital day # : 0 Physician author: Ganga Lind MD Today: 10/03/2017 CHIEF COMPLAINT: Hypoxic respiratory failure HISTORY OF PRESENT ILLNESS: This is a 61 y.o. male with a history of coronary artery disease post recent anterior wall CO, post PTCA and stents of the left main, LAD and LCx on 03/15/17, cardiac shock, left atrial appendage thrombus who presented to [facility] for progressively worsening shortn ess of breath. Unable to obtain history, patient intubated. As per the documents, patient re ported 2 days of worsening shortness of breath. Acute worsening 30 minutes prior to presenta tion. He denied chest pain. (+) cough. No fever, chills, N/V/D. Patient had acute worsening respiratory status and was intubated. CXR at OSH showed diffuse central pulmonary edema. WBC 21.9, hgb 18.2, Cr 1.68, Trop 0.02. Patient was started on lasix 40mg IV. Received at OSH: Ng, lasix 40mg Iv x 2, propofol As per below: Following ischemic event, patient had decrease in EF to 20-25%, on 05/07/17 EF was shown to be 35-40% with G1DD and repeat on 06/04/17 had EF 50-55% with mild hypokinesis of the anterior wall. Hospitalized: [facility] 03/15-04/02/17 transferred 03/15in acute cardiogenic shock requiring IABP (removed 03/16/17) and pressors (dopamine, NE). In setting of STEMI and cardiogenic shock. ET T placed 03/15, extubated uneventfully 03/22. [facility] ECMO started on arrival. He was rapidly weaned from pressors and IABP was removed. He was found to have an anterior STEMI with 99% proxima l LAD lesion and 100% distal LM occlusion, with subsequent acute dissection/thrombosis of L main. S/p revascularization via PCI of LM/LAD and LCX. TTE with EF 20-25% on 03/17, and repe at TTE 03/30 with improved systolic function with EF 30-35%. JAVON thrombus noted on MARKY in the OR during ECMO decannulation. Completedheparin gtt bridge 03/29 to therapeutic warfarin. PAST MEDICAL and SURGICAL HISTORY: Past Medical History: Diagnosis Date Acute anterior wall CO (HCC) 04/03/2017 Angiography and stent 03/15/2017 successful [...] stenosis on 03/15/2017 by Monse Ross MD. Past Surgical History: Procedure Laterality Date CARDIAC CATHERIZATION N/A 03/15/2017 Procedure: CV Cor Angio; Surgeon: Monse Ross MD; Location: [facility] CV LAB ELBOW SURGERY Left GALLBLADDER SURGERY NASAL SEPTUM SURGERY FAMILY HISTORY: Unable to obtain SOCIAL HISTORY: reports that he has never smoked. He has never used smokeless tobacco. He reports that he does not drink alcohol. REVIEW OF SYSTEMS: Unable to obtain HOME MEDICATIONS: PT REPORTED TAKING NOT TAKING Medication Sig Last Dose Dispense Doc. Provider aspirin 81 MG tablet Take by mouth Daily. Historical Provider, atorvaSTATin (LIPITOR) 40 mg tablet Take by mouth Daily. Historical Provider, carvedilol (COREG) 3.125 mg tablet TAKE ONE TABLET BY MOUTH TWICE A DAY (WITH BREAKFAST AN D DINNER) 60 tablet Randy Figueroa MD Cholecalciferol (VITAMIN D PO) Take 500 mg by mouth Once a week. Historical Provider, clopidogrel (PLAVIX) 75 mg tablet Take 1 tablet by mouth Daily. 90 tablet ADARSH French GABAPENTIN PO Take 2 capsules by mouth 3 times daily. Historical Provider, lisinopril (PRINIVIL, ZESTRIL) 5 mg tablet Take 3 tablets by mouth Daily. 210 tablet ADARSH Nichole metFORMIN (GLUCOPHAGE) 500 mg tablet Take by mouth 2 times daily. Historical Provider, raNITIdine (ZANTAC) 300 MG tablet Take by mouth nightly. Historical Provider, traMADol (ULTRAM) 50 mg tablet as needed. Historical Provider, ALLERGIES: No Known Allergies VITAL SIGNS: , , , , SpO2 on at flow rate L/min No Data Recorded PHYSICAL EXAMINATION: Constitutional Unconscious, intubated Eye No conjunctivitis nor scleral icterus ENT Unremarkable oral ear and nose Neck Difficult to assess JVP, appears elevated to 12cm Lymph node exam Negative in the following areas: neck and epitrochlear Cardiac S1,S2, tachycardic Lung Coarse breath sounds Abdomen + BS, Soft, NT, no HSM nor masses Extremities (+) 1 B/l LE edema Psych Unconscious Neuro Normal tone. DIAGNOSTIC STUDIES: Lab results last 24 hours No results found for this or any previous visit (from the past 24 hour(s)). Micro results Microbiology Results (72 hrs) No results found for the last 72 hours. I reviewed imaging Ordered CXR EKG Results (ordered EKG) I reviewed and summarized old records ASSESSMENT: Principal Problem: Acute hypoxic respiratory failure Active Hospital Problems Diagnosis Pulmonary edema Ischemic cardiomyopathy CAD (coronary artery disease) Resolved Hospital Problems Diagnosis No resolved problems to display. Code Status Full Medical Decision Maker [place] Hood [phone] DVT Prophylaxis Warfarin PLAN: Acute hypoxic respiratory failure possibly 2/2 to pulmonary edema in setting of Acute systo lic heart failure +/- CAP with concern for ARDS Unable to obtain history. Patient had complicated admission in [facility] with recent IABP placem ent, anterior STEMI with 99% proximal LAD lesion and 100% distal LM occlusion, with subseque nt acute dissection/thrombosis of L main s/p PCI x 3. Patient's initial TTE With EF to 20-2 5%, on 05/07/17 EF was shown to be 35-40% with G1DD and repeat on 06/04/17 had EF 50-55% with mild hypokinesis of the anterior wall. Currently, as per the records had diffuse pulmonary e didier on CXR. BNP 920s. WBC 21.9. On exam, JVP does appear elevated, (+) 1 LE edema. Received lasix 40mg IV x 2 and ceftriaxone -Ordered CXR -Baseline labs including: CBC, BMP, hepatic function panel, lactic acid, BNP -TTE ordered -Will continue ceftriaxone, azithromycin for now -Ordered blood culture, Ua, sputum cx, flu swab -Will start lasix 40mg IV BID ?CKD Cr previously 1.46, documented at OSH 1.68, does not meet [place] Criteria -Will continue to monitor CAD s/p stents of the left main, LAD and LCx on 03/15/17 -Continue atorvastatin, plavix, ASA -Ordered EKG, serial trops, telemetry JAVON thrombus noted on MARKY in the OR during ECMO decannulation. [facility] Currently does not appear to be on warfarin, possibly discontinued after 3 months, will minooe d med rec History of Chronic ischemic CMP (EF 50-55% in 06/04/17) Holding carvedilol, lisinopril given hypotension FEN: NPO PPX: Lovenox [facility] Documentation I expect this patient will be hospitalized for greater than 2-midnights and expect the post -hospital plan to be discharge to home or to an adult foster home. Electronically signed by: Ganga Lind MD 10/03/2017 10:02 [facility] documented in this e ncounter Procedure Notes Delmer Gomez MD - 10/03/2017 4:06 PM PSTAssociated Order(s): CV CARDIAC PROCEDUREPre-Pr ocedure Diagnose(s): NSTEMI (non-ST elevated myocardial infarction) (HCC)Post-Procedure Diag nose(s): NSTEMI (non-ST elevated myocardial infarction) (HCC)CARDIAC CATHETERIZATION REPORT DATE OF PROCEDURE: 10/03/17 PRECATHETERIZATION INFORMED CONSENT : Yes TIMEOUT Before start of procedure done: Yes CURB MACHINE OPERATOR: Delmer Gomez M.D., F.A.C.C. PRIMARY PHYSICIAN: Chato Matson MD PROCEDURES PERFORMED: Left heart catheterization, selective coronary arteriography INDICATIONS : 61-year-old gentleman presenting with acute hypoxic respiratory failure, new left bundle branch block, increasing troponin levels, history of coronary artery PCI and pr ior anterior myocardial infarction ARTERIAL ACCESS: Right femoral artery 6 Austrian CLOSURE DEVICE:. Sheath left in place as arterial line DESCRIPTION OF PROCEDURE: After obtaining informed consent from the patient's , the pat ient was brought to the cardiac catheterization laboratory intubated and mechanically ventil ated and sedated. He was prepped and draped in usual fashion. Local anesthesia was adminis tered to the right inguinal area with 1% lidocaine. Access to the right femoral artery was achieved using a modified Seldinger technique and a 6 Austrian sheath was inserted. Selective coronary arteriography was performed using 6 Austrian Kymberly right 4 and left 4 catheters. A Kymberly right 4 catheter was passed across the aortic valve over a guidewire without diffi culty. Left ventricular pressures and aortic valve pullback pressures were recorded. There were no complications. The right femoral artery sheath was sutured in place to function hi s arterial line. SEDATION MEDICATIONS: The patient was on intravenous propofol throughout the procedure CONTRAST VOLUME: 50 FLUORO TIME: 2 minutes; FLUORO DOSE: 468.87 mGy/cm2 HEMODYNAMICS: LEFT HEART: Left ventricular end diastolic pressure: 14 mmHg Aortic pressure: 75/40 mmHg Aortic Valve Gradient on pullback: 0 mmHg CORONARY ANGIOGRAPHY DOMINANCE: Right LEFT MAIN ARTERY: Medium caliber vessel, vessel caliber tapers distally, eccentric 50% dist al bifurcation lesion within previous stent LEFT ANTERIOR DESCENDING ARTERY: 70% ostial in-stent stenosis, medium caliber first diagona l branch with mild luminal irregularity, moderate diffuse mid to distal LAD disease with AMY I grade 1 flow to distal LAD CIRCUMFLEX ARTERY: Medium caliber vessel, 95-99% ostial and proximal in-stent stenosis, sma ll caliber first obtuse marginal branch, for additional more distal obtuse marginal branches of medium caliber with mild to moderate diffuse disease RIGHT CORONARY ARTERY: Medium caliber vessel arising from right coronary cusp, and dominant , 30% proximal stenosis, diffuse 40-50% mid vessel disease, mild luminal irregularity in dis sukhdeep branches including PDA and posterior lateral branches CONTRAST LEFT VENTRICULOGRAPHY: Not performed CONCLUSIONS: 1. Systemic hypotension, upper normal left ventricular end-diastolic pressure 2. Severe in-stent stenosis of left main to ostial LAD stent 3. Severe in-stent stenosis ostial proximal left circumflex stent 4. Mild to moderate RCA disease 5. ANNA grade 1 flow to distal LAD PLAN: the patient is presenting with fever, leukocytosis, possible pneumonitis on chest x-ray, and high grade ostial LAD and circumflex in-stent stenoses with new left bundle branc h block and elevated troponin. The patient's primary illness may be pneumonitis with septic shock with resulting hypotension causing myocardial ischemia. The patient will require cor onary revascularization at some point. I recommend that we continue treating the patient wi th broad-spectrum antibiotics, fluid support, ventilatory support and pressors as needed. T he patient's left ventricular filling pressures and unchanged left ventricular function and echocardiogram do not suggest acute cardiac decompensation as his primary reason for hypoten neema. If the patient shows signs of cardiac instability we will transfer the patient to [facility] for consideration of urgent coronary revascularization. Delmer Gomez M.D., F.A.C.C. Vocational Nursing Instructor [place], [place] documented in this enc ounter Consult Notes Delmer Gomez MD - 10/03/2017 3:50 PM PST PATIENT NAME: Ron Hood : 1955: AGE: 61 y.o. ADMISSION DATE: 10/03/2017 HOSPITAL DAY NUMBER: 0 PRIMARY CARE: Chato Matson MD REFERRING PROVIDER: Ganga Lind MD CONSULTING PROVIDER: Delmer Gomez MD CARDIOLOGY CONSULTATION DATE OF CONSULTATION: 10/03/17 REASON FOR CONSULT: Acute respiratory failure, elevated troponin, new left bundle branch block, history of laurel nary disease HISTORY OF PRESENT ILLNESS: Ron Hood is a 61 y.o. male with a history of coronary disease and previous salvag e left main to LAD and ostial circumflex PCI March 2017 in the setting of cardiogenic shock a nd left main artery occlusion. The patient was transferred emergently to [facility] in [facility] his stents were implanted and no further revascularization was done. The patient devel oped new complaints of dyspnea at rest 2 days prior to admission which progressed in severit y leading to his presentation in an outside hospital this morning where he developed respira tory failure and was intubated emergently. The patient's states that he had not compla ined of chest pain along with shortness of breath and has had no recent complaints of exerti onal chest pain. The patient was transferred to [facility] where ECG showed left b undle branch block that was new from a prior ECG in April 2017. Troponin level at outside hospital was 0.02 and increased to 12.5 later this morning. The patient had developed hypot ension with his respiratory failures morning requiring IV pressors with norepinephrine which was able to be weaned off. The patient presented with elevated white blood cell count of 2 2,000 and has developed fevers to 38C since admission. I recommended the patient be broug ht to the cardiac catheterization laboratory for urgent coronary arteriography given his his tory of complex left main, LAD, and circumflex stent placement and his elevated troponin lev els. I discussed the procedure with the patient's who states that she understands the risks and benefits and wishes to proceed. Informed consent was obtained from the patient's . Portable chest x-ray on admission shows bibasilar interstitial and alveolar infiltrat es consistent with either pulmonary edema or atypical pneumonitis. The patient was given in travenous furosemide at the outside hospital and has had a good diuresis. PAST MEDICAL HISTORY Past Medical History: Diagnosis Date Acute anterior wall CO (HCC) 04/03/2017 Angiography and stent 03/15/2017 successful [...] Cor Angio; Surgeon: Monse Ross MD; Location: [facility] CV LAB ELBOW SURGERY Left GALLBLADDER SURGERY NASAL SEPTUM SURGERY FAMILY HISTORY No family history on file. SOCIAL HISTORY Social History Social History Marital status: Spouse name: N/A Number of children: N/A Years of education: N/A Occupational History Not on file. Social History Main Topics Smoking status: Never Smoker Smokeless tobacco: Never Used Alcohol use No Drug use: Unknown Sexual activity: Not on file Other Topics Concern Not on file Social History Narrative No narrative on file MEDICATIONS: Current Facility-Administered Medications Medication Dose Route Frequency Provider Last Rate Last Dose aspirin chewable tablet 81 mg 81 mg Per OG Tube Daily Ganga Lind MD 81 mg at 0 10/03/17 1141 atorvaSTATin (LIPITOR) tablet 40 mg 40 mg Per OG Tube Daily Ganga Lind MD 40 m g at 10/03/17 1140 azithromycin (ZITHROMAX) 500 mg in sodium chloride 0.9% 250 mL IVPB 500 mg Intravenous Daily Ganga Lind MD 255 mL/hr at 10/03/17 1214 500 mg at 10/03/17 1214 [START ON 10/04/2017] cefTRIAXone (ROCEPHIN) 2 g in sodium chloride 0.9% 50 mL IVPB 2 g Intravenous Daily Ganga Lind MD clopidogrel (PLAVIX) tablet 75 mg 75 mg Per OG Tube Daily Ganga Lind MD 75 mg at 10/03/17 1141 dextrose 50% injection 12.5 g 12.5 g Intravenous PRN Ganga Lind MD [START ON 10/04/2017] enoxaparin (LOVENOX) 40 mg/0.4 mL injection 40 mg 40 mg Subcutane ous Daily Ganga Lind MD insulin lispro (humaLOG KWIKPEN) 100 units/mL injection (pen) 0-6 Units 0-6 Units Subc utaneous 4x Daily WC and HS Ganga Lind MD norepinephrine in NS (LEVOPHED) 16 mcg/mL infusion 1-30 mcg/min Intravenous Titrated A dalia Lind MD Stopped at 10/03/17 1130 oseltamivir (TAMIFLU) 6 mg/mL suspension 30 mg 30 mg Per OG Tube BID Ganga Lind MD 30 mg at 10/03/17 1203 pantoprazole (PROTONIX) injection 40 mg 40 mg Intravenous Daily Ganga Lind MD 40 mg at 10/03/17 1205 propofol infusion (DIPRIVAN) 10 mg/mL infusion 10-70 mcg/kg/min (Order-Specific) Intra venous Titrated Ganga Lind MD 20.4 mL/hr at 10/03/17 1428 35 mcg/kg/min at 10/03/17 14 28 sodium chloride 0.9% (NS) infusion Intravenous Continuous Ganga Lind MD [facility] list of outpatient meds: Prescriptions Prior to Admission Medication Sig Dispense Refill aspirin 81 MG tablet Take by mouth Daily. atorvaSTATin (LIPITOR) 40 mg tablet Take by mouth Daily. carvedilol (COREG) 3.125 mg tablet TAKE ONE TABLET BY MOUTH TWICE A DAY (WITH BREAKFAST AND DINNER) 60 tablet 5 Cholecalciferol (VITAMIN D PO) Take 500 mg by mouth Once a week. clopidogrel (PLAVIX) 75 mg tablet Take 1 tablet by mouth Daily. 90 tablet 3 GABAPENTIN PO Take 2 capsules by mouth 3 times daily. lisinopril (PRINIVIL, ZESTRIL) 5 mg tablet Take 3 tablets by mouth Daily. 210 tablet 3 metFORMIN (GLUCOPHAGE) 500 mg tablet Take by mouth 2 times daily. raNITIdine (ZANTAC) 300 MG tablet Take by mouth nightly. traMADol (ULTRAM) 50 mg tablet as needed. ALLERGIES No Known Allergies REVIEW OF SYSTEMS The items listed in the history and physical were reviewed and the following updates or eunice ndments were found: PHYSICAL EXAM Vital signs: Vitals: 10/03/17 1529 BP: 113/68 Pulse: 89 Resp: 20 Temp: Admit Weight: Weight: 97 kg (213 lb 13.5 oz) Current weight: Weight: 97 kg (213 lb 13.5 oz) Body mass index is 30.68 kg/m. General appearance: Intubated, sedated Chest: Scattered rhonchi Cardiovascular: Regular rhythm, no S3 Gastrointestinal Abdomen: soft, non-tender, diminished bowel sounds Extremities No edema Skin: Unremarkable LABS: Admission on 10/03/2017 Component Date Value [...] % Final FiO2 10/03/2017 100.0 % Final BNP 10/03/2017 495* <100 pg/mL Final Troponin I 10/03/2017 12.50* <0.06 ng/mL Final LACTATE 10/03/2017 1.2 0.5 - 2.2 mmol/L Final LVEF-TTE TRANSTHORACIC ECHO 10/03/2017 39 Final Lactoferrin, Qual 10/03/2017 Negative Negative Final Clostridium Difficile GDH Antigen 10/03/2017 Negative Negative Final C. Diff Toxin A/B EIA 10/03/2017 Negative Negative Final SHIGATOXIN I 10/03/2017 Negative Negative Final SHIGATOXIN II 10/03/2017 Negative Negative Final Campylobacter AG, Qual 10/03/2017 Negative Negative Final Influenza A PCR 10/03/2017 Negative Negative Final Influenza B PCR 10/03/2017 Positive* Negative Final COLOR 10/03/2017 Straw Light Yellow, Yellow, Straw Final CLARITY 10/03/2017 Clear Clear Final PH UA 10/03/2017 5.0 5.0 - 8.0 Final Specific [place] 10/03/2017 1.006 1.001 - 1.030 Final PROTEIN [...] 10/03/2017 136* 70 - 109 mg/dL Final IMAGING: Xr [...] Ramírez MD Electronically signed: 10/03/2017 12:41 PM ECG: Sinus tachycardia 106 bpm, left bundle branch block DIAGNOSES AND ASSESSMENTS: 1. 61-year-old gentleman with history of prior anterior myocardial infarction, left main an d ostial left circumflex stent placement 2. 2016 who presents with progressive dyspnea at rest over a period of 2 days and acute hyp oxic respiratory failure requiring emergent intubation, hypotension requiring intravenous pr essor support, ECG with new left bundle branch block from previous, and elevated troponin le vels. The patient also has significant white blood cell count elevation as well as fever, c hest x-ray suggesting either atypical pneumonitis or possible pulmonary edema. The patient will undergo diagnostic coronary geography with possible proteins revascularization. Echoca rdiography will be done as well today. PLAN OR RECOMMENDATIONS: Diagnostic coronary geography with possible PCI Transthoracic echocardiogram I appreciate the opportunity of participating in the care of this patient. Delmer Gomez MD, 10/03/2017 15:50 documented in this enc ounter Miscellaneous Notes Plan of Care - Bob Gonzalez, DIETARY AID - 10/10/2017 3:44 PM PSTProblem: Patient Care Carla greco (Adult) Goal: Care Team Goals & Evaluation PROBLEM-RELATED GOALS: 2. Ron will have breath sounds consistent with baseline function throughout stay and rev erse airway bronchospasm when indicated. Reevaluate goal by 10/12/2017. 3. Ron will maintain a patent airway and effective airway clearance by 10/12/2017. 4. Ron will maintain a pain level of >2 with movement through 10/12/17. 5. Steven will remain free from falls through 10/12/17. 6. Steven will remain free from skin breakdown through 10/12/17. STRATEGY TO ACHIEVE GOALS: - Ron will participate in PT per POC and mobilize with nursing as appropriate. - Administer respiratory medications as ordered. - Perform airway clearance using vibratory PEP therapy. - Provide pain medications PRN and encourage other forms of pain relief. - Utilize fall prevention program. Keep room clutter free and appropriately lit. - Inspect Pt skin frequently, keep Pt clean and dry. Use nystatin powder as ordered. RESTRAINT-RELATED GOALS: STRATEGIES TO ACHIEVE RESTRAINT GOALS: Outcome: Improving Goal Evaluation: SpO2: 95 % on room air and BS clear with slightly diminished BS. Recommended that we back off the nebulizers earlier today and Ron refused his noon treatments. Ron is now subhash ng transferred to [facility] for further treatment of his heart issues. RT goal met. Call RT for any respiratory concerns. lan of Care Clinton Allison Jr., DIETARY AID - 10/10/2017 5:26 AM PSTProblem: Patient Care Overview (Adult) Goal: Care Team Goals & Evaluation PROBLEM-RELATED GOALS: 1. Ron will maintain adequate oxygenation via oximetry with SpO2 >92 on RA by 10/12/2017. 2. Ron will have breath sounds consistent with baseline function throughout stay and rev erse airway bronchospasm when indicated. Reevaluate goal by 10/12/2017. 3. Ron will maintain a patent airway and effective airway clearance by 10/12/2017. 4. Ron will maintain a pain level of >2 with movement through 10/12/17. 5. Steven will remain free from falls through 10/12/17. 6. Steven will remain free from skin breakdown through 10/12/17. STRATEGY TO ACHIEVE GOALS: - Monitor saturations via oximetry and titrate to order as indicated. - Provide heated humidity and necessary FiO2 to maintain sats using high flow nasal cannula to provide break from the Bipap. - Ron will participate in PT per POC and mobilize with nursing as appropriate. - Administer respiratory medications as ordered and adjust with use of respiratory protocol s. - Perform airway clearance using vibratory PEP therapy. - Provide pain medications PRN and encourage other forms of pain relief. - Utilize fall prevention program. Keep room clutter free and appropriately lit. - Inspect Pt skin frequently, keep Pt clean and dry. Use nystatin powder as ordered. RESTRAINT-RELATED GOALS: STRATEGIES TO ACHIEVE RESTRAINT GOALS: Goal Evaluation: Ron is now on RA sats 93/94% Uses Pep device on his own. BS clear. Q4 tx given as ordere d. lan of Care - Tecs on, ALFONSO Cantrell - 10/10/2017 3:23 AM PSTProblem: Patient Care Overview (Adult) Goal: Care Team Goals & Evaluation PROBLEM-RELATED GOALS: 1. Ron will maintain adequate oxygenation via oximetry with SpO2 >92 on RA by 10/12/2017. 2. Ron will have breath sounds consistent with baseline function throughout stay and rev erse airway bronchospasm when indicated. Reevaluate goal by 10/12/2017. 3. Ron will maintain a patent airway and effective airway clearance by 10/12/2017. 4. Ron will maintain a pain level of >2 with movement through 10/12/17. 5. Steven will remain free from falls through 10/12/17. 6. Steven will remain free from skin breakdown through 10/12/17. STRATEGY TO ACHIEVE GOALS: - Monitor saturations via oximetry and titrate to order as indicated. - Provide heated humidity and necessary FiO2 to maintain sats using high flow nasal cannula to provide break from the Bipap. - Ron will participate in PT per POC and mobilize with nursing as appropriate. - Administer respiratory medications as ordered and adjust with use of respiratory protocol s. - Perform airway clearance using vibratory PEP therapy. - Provide pain medications PRN and encourage other forms of pain relief. - Utilize fall prevention program. Keep room clutter free and appropriately lit. - Inspect Pt skin frequently, keep Pt clean and dry. Use nystatin powder as ordered. RESTRAINT-RELATED GOALS: STRATEGIES TO ACHIEVE RESTRAINT GOALS: Goal Evaluation: Patient stable on room air, denied shortness of breath. [place] 2 tabs given for complain of back pain. Alert and oriented. Call light within reach. lan of [facility] - Rhea Padgett RN - 10/09/2017 5:57 PM PSTProblem: Patient Care Overview (Adult) Goal: Care Team Goals & Evaluation PROBLEM-RELATED GOALS: 1. Ron will maintain adequate oxygenation via oximetry with SpO2 >92 on RA by 10/12/2017. 2. Ron will have breath sounds consistent with baseline function throughout stay and rev erse airway bronchospasm when indicated. Reevaluate goal by 10/12/2017. 3. Ron will maintain a patent airway and effective airway clearance by 10/12/2017. 4. Ron will maintain a pain level of >2 with movement through 10/12/17. 5. Steven will remain free from falls through 10/12/17. 6. Steven will remain free from skin breakdown through 10/12/17. STRATEGY TO ACHIEVE GOALS: - Monitor saturations via oximetry and titrate to order as indicated. - Provide heated humidity and necessary FiO2 to maintain sats using high flow nasal cannula to provide break from the Bipap. - Ron will participate in PT per POC and mobilize with nursing as appropriate. - Administer respiratory medications as ordered and adjust with use of respiratory protocol s. - Perform airway clearance using vibratory PEP therapy. - Provide pain medications PRN and encourage other forms of pain relief. - Utilize fall prevention program. Keep room clutter free and appropriately lit. - Inspect Pt skin frequently, keep Pt clean and dry. Use nystatin powder as ordered. RESTRAINT-RELATED GOALS: STRATEGIES TO ACHIEVE RESTRAINT GOALS: Outcome: Improving Goal Evaluation: Steven was transferred from ICU, denies chest pain telemetry, patient needs coronary revascu larization to be transferred out tomorrow, tolerated meals well, voids without difficulty, c alls appropriately and makes needs known. lan of Care - Adele Chamberlain, BARRON - 10/09/2017 5:30 PM PSTProblem: Patient Care Overview (Adult) Goal: Care Team Goals & Evaluation PROBLEM-RELATED GOALS: 1. Ron will maintain adequate oxygenation via oximetry with SpO2 >92 on RA by 10/12/2017. 2. Ron will have breath sounds consistent with baseline function throughout stay and rev erse airway bronchospasm when indicated. Reevaluate goal by 10/12/2017. 3. Ron will maintain a patent airway and effective airway clearance by 10/12/2017. 4. Ron will maintain a pain level of >2 with movement through 10/12/17. 5. Steven will remain free from falls through 10/12/17. 6. Steven will remain free from skin breakdown through 10/12/17. STRATEGY TO ACHIEVE GOALS: - Monitor saturations via oximetry and titrate to order as indicated. - Provide heated humidity and necessary FiO2 to maintain sats using high flow nasal cannula to provide break from the Bipap. - Ron will participate in PT per POC and mobilize with nursing as appropriate. - Administer respiratory medications as ordered and adjust with use of respiratory protocol s. - Perform airway clearance using vibratory PEP therapy. - Provide pain medications PRN and encourage other forms of pain relief. - Utilize fall prevention program. Keep room clutter free and appropriately lit. - Inspect Pt skin frequently, keep Pt clean and dry. Use nystatin powder as ordered. RESTRAINT-RELATED GOALS: STRATEGIES TO ACHIEVE RESTRAINT GOALS: Goal Evaluation: Ron has been weaned off of oxygen throughout the coarse of today, SpO2 93 - 96% on room air, he tolerates his DuoNeb treatments well with improvement noted in peak flow measurement s from 300 to 450 throughout this shift. Ron is using his PEP device frequently on his o wn, breath sounds are now clear throughout. lan of Care - Tamia Alvarado OT - 10/09/2017 3:34 PM PSTFormatting of this note might be different from alie reyes original. Problem: Patient Care Overview (Adult) Goal: Care Team Goals & Evaluation PROBLEM-RELATED GOALS: 1. Ron will maintain adequate oxygenation via oximetry with SpO2 >92 on RA by 10/12/2017. 2. Ron will have breath sounds consistent with baseline function throughout stay and rev erse airway bronchospasm when indicated. Reevaluate goal by 10/12/2017. 3. Ron will maintain a patent airway and effective airway clearance by 10/12/2017. 4. Ron will maintain a pain level of >2 with movement through 10/12/17. 5. Steven will remain free from falls through 10/12/17. 6. Steven will remain free from skin breakdown through 10/12/17. STRATEGY TO ACHIEVE GOALS: - Monitor saturations via oximetry and titrate to order as indicated. - Provide heated humidity and necessary FiO2 to maintain sats using high flow nasal cannula to provide break from the Bipap. - Ron will participate in PT per POC and mobilize with nursing as appropriate. - Administer respiratory medications as ordered and adjust with use of respiratory protocol s. - Perform airway clearance using vibratory PEP therapy. - Provide pain medications PRN and encourage other forms of pain relief. - Utilize fall prevention program. Keep room clutter free and appropriately lit. - Inspect Pt skin frequently, keep Pt clean and dry. Use nystatin powder as ordered. RESTRAINT-RELATED GOALS: STRATEGIES TO ACHIEVE RESTRAINT GOALS: Outcome: Improving Occupational Therapy Plan of Care Treatment, Discharge Note Summary: Ron has been participating in occupational therapy for treatment of Decrease d fxl mobility, ADL performance, activity tolerance following hypoxic respiratory failure, p t on high flow O2 - see and P for details. . Emphasis of session included ADLs, fxl mob ility, safety awareness. Patient demonstrates progress towards functional goals as evidence d by has met acute OT goals; tolerating completion of ADLs; improved mobility w/ 4WW; on edison m air. Remaining barriers to discharge and functional limitations include would benefit fro m supervision in the home setting; would benefit from Home Health vs SNF. At this time march kassi, no further acute OT intervention is indicated. Ron will benefit from continued therapeutic intervention to address ongoing impairments and increase safety and independence with activities necessary for safe discharge. Refer be low for specific details regarding functional levels. Occupational Therapy Discharge Recommendations are: Recommended discharge disposition: home with assist Post discharge occupational therapy recommendation: home health Equipment Recommendations: shower chair, 4 wheeled walker (4WW) Planned Interventions:ADL retraining, bed mobility training, transfer training Recommended Frequency: 4 times/wk Patient Status/Goals: Reflects last filed data and may be from multiple contributors. ADLs Long-sleeved shirt. UB Dressing, Level of [place]: set up required UB Dressing Assess/Train, Position: sitting UB Dressing Assess/Train, Impairments: decreased flexibility Already wearing pants, but can doff/don socks by crossing legs. LB Dressing, Level of [place]: set up required, supervised LB Dressing Assess/Train, Position: sitting, standing LB Dressing Assess/Train, Impairments: strength decreased Toileting, Level of [place]: supervised Toileting Assess/Train, Impairments: postural control impaired, strength decreased Stood @ sink to complete grooming. Mod I. Functional Endurance Good for activities presented. No increase in SOB on room air, w/ ambulation and ADL activ ities, standing, LB dressing. Transfers Pt on room air this PM. Mobilizing w/ 4WW, slightly stooped posture. Raised height of 4WW handles to encourage a more upright posture. Pt using 4WW correctly and safely. Ambulated w/ SBA 50 ft, no SOB, good tolerance. Initial gait pattern w/ shortened stride and narrow base of support. At conclusion- mobilized w/ improved reciprocal gait and improved base. P osture improved w/ height adjustment. Sit-Stand, Level of [place]: SBA Stand-Sit, Level of [place]: stand by assist [id number], Assistive Device: 4 wheeled walker (4WW) Toilet, Level of [place]: stand by assist Toilet, Assistive Device: 4 wheeled walker (4WW) Safety Issues: step length decreased, weight-shifting ability decreased Impairments: strength decreased, impaired balance ROM L UE ROM: WFL R UE ROM: WFL Strength L UE Strength: WFL R UE Strength: WFL OT Goal Review Date Flowsheet Row Most Recent Value STG Review Date 10/10/17 at 10/07/2017 1157 Grooming Goal Flowsheet Row Most Recent Value STG Status met at 10/09/2017 1700 STG [place] Level stand by assist at 10/07/2017 1157 STG Position supported standing, standing at 10/07/2017 1157 STG Adaptive Equipment none at 10/07/2017 1157 Toilet Transfer Goal Flowsheet Row Most Recent Value STG Status met at 10/09/2017 1700 STG [place] Level stand by assist, set up required, verbal cues required at 8 1157 STG Assistive Device 2 wheeled walker (FWW), commode (3 in 1) [BSC over toilet] at 018 1157 Electronically signed by: Tamia Alvarado OT, 10/09/2017 17:01 lan of Care - Merrill Early PTA - 10/09/2017 11:50 AM PST Problem: Patient Care Overview (Adult) Goal: Care Team Goals & Evaluation PROBLEM-RELATED GOALS: 1. Ron will maintain adequate oxygenation via oximetry with SpO2 >92 on RA by 10/12/2017. 2. Ron will have breath sounds consistent with baseline function throughout stay and rev erse airway bronchospasm when indicated. Reevaluate goal by 10/12/2017. 3. Ron will maintain a patent airway and effective airway clearance by 10/12/2017. 4. Ron will maintain a pain level of >2 with movement through 10/12/17. 5. Steven will remain free from falls through 10/12/17. 6. Steven will remain free from skin breakdown through 10/12/17. STRATEGY TO ACHIEVE GOALS: - Monitor saturations via oximetry and titrate to order as indicated. - Provide heated humidity and necessary FiO2 to maintain sats using high flow nasal cannula to provide break from the Bipap. - Ron will participate in PT per POC and mobilize with nursing as appropriate. - Administer respiratory medications as ordered and adjust with use of respiratory protocol s. - Perform airway clearance using vibratory PEP therapy. - Provide pain medications PRN and encourage other forms of pain relief. - Utilize fall prevention program. Keep room clutter free and appropriately lit. - Inspect Pt skin frequently, keep Pt clean and dry. Use nystatin powder as ordered. RESTRAINT-RELATED GOALS: STRATEGIES TO ACHIEVE RESTRAINT GOALS: Outcome: Improving Physical Therapy Plan of Care Treatment Note Summary: Ron has been participating in physical therapy for treatment of impaired activ ity tolerance and gross deconditioning following admit for hypoxic respiratory failure. Pat ient then with cardiac interventions and respiratory distress and intubated 10/03/17 and extu bated 10/04/17. Emphasis of session included gt training. Patient demonstrates progress tow ards functional goals as evidenced by increase in gt with no drop in 02, pt was in on 5L O2. Remaining barriers to discharge and functional limitations include decreased functional t ransfers, decreased functional gait distance, decreased gait velocity, stairs to enter the h ome, not able to navigate stairs, not yet able to mobilize at level safe for home discharge. Ron will benefit from continued therapeutic intervention to address ongoing impairments and increase safety and independence with activities necessary for safe discharge. Refer be low for specific details regarding functional levels. Physical Therapy Discharge Recommendations are: Recommended discharge disposition: inpatient rehabilitation facility, residential faci lity (vs, TBD) Post discharge physical therapy recommendation: pt is motivated participant Equipment Recommendations: (has needed DME) Planned Interventions: balance training, bed mobility training, gait training, home exerci se program, patient/family education, stair training, strengthening, transfer training Recommended Frequency: 5 times/wk Patient Status/Goals: Reflects last filed data and may be from multiple contributors. Gait pt O2 remained 94% or higher on 5L O2 NC; assist with O2 line needed; pt continues to use 4 ww from home Level of [place]: stand by assist Assistive Device: 4 wheeled walker (4WW) Distance (feet): 50 x3 Gait Pattern Analysis: 2-point gait Gait Deviations: double stance time increased, limb motion velocity decreased, step length decreased Safety Issues: step length decreased, weight-shifting ability decreased Impairments: pain, strength decreased, impaired balance Transfers pt movement more fluid today still needing extra time and effort, however less effort and l ess O2 required Sit-Stand, Level of [place]: stand by assist Stand-Sit, Level of [place]: stand by assist [id number], Assistive Device: 4 wheeled walker (4WW) Toilet, Level of [place]: contact guard assist Toilet, Assistive Device: 4 wheeled walker (4WW) Safety Issues: step length decreased, weight-shifting ability decreased Impairments: strength decreased, impaired balance Bed Mobility NT; pt up in chair on arrival ans requested to stay up in chair post tx Functional Endurance fair- pt O2 WNL with 5L, even with increase in gt PT Goal Review Date Flowsheet Row Most Recent Value STG Review Date 10/13/17 at 10/06/2017 1340 All Bed Mobility Goal Flowsheet Row Most Recent Value STG Status progressing at 10/08/2017 1130 STG [place] Level modified independent at 10/06/2017 1340 [id number] Goal Flowsheet Row Most Recent Value STG Status progressing at 10/09/2017 1157 STG [place] Level modified independent at 10/06/2017 1340 STG Assistive Device 4 wheeled walker (4WW) at 10/06/2017 1340 Gait Goal Flowsheet Row Most Recent Value STG Status progressing at 10/09/2017 1157 STG [place] Level modified independent at 10/06/2017 1340 STG Assistive Device 4 wheeled walker (4WW) at 10/06/2017 1340 STG Distance (feet) 50 at 10/06/2017 1340 Stair Goal Flowsheet Row Most Recent Value STG Status new at 10/06/2017 1340 STG [place] Level modified independent at 10/06/2017 1340 STG Assistive Device 2 rails at 10/06/2017 1340 STG Number of Stairs 4 at 10/06/2017 1340 Electronically signed by: Merrill Evans PTA, 10/09/2017 11:58 lan of Care - Roshan ett, Kelly Mai DIETARY AID - 10/09/2017 5:57 AM PSTProblem: Patient Care Overview (Adult) Goal: Care Team Goals & Evaluation PROBLEM-RELATED GOALS: 1. Ron will maintain adequate oxygenation via oximetry with SpO2 >92 on RA by 10/12/2017. 2. Ron will have breath sounds consistent with baseline function throughout stay and rev erse airway bronchospasm when indicated. Reevaluate goal by 10/12/2017. 3. Ron will maintain a patent airway and effective airway clearance by 10/12/2017. 4. Ron will maintain a pain level of >2 with movement through 10/12/17. 5. Steven will remain free from falls through 10/12/17. 6. Steven will remain free from skin breakdown through 10/12/17. STRATEGY TO ACHIEVE GOALS: - Monitor saturations via oximetry and titrate to order as indicated. - Provide heated humidity and necessary FiO2 to maintain sats using high flow nasal cannula to provide break from the Bipap. - Ron will participate in PT per POC and mobilize with nursing as appropriate. - Administer respiratory medications as ordered and adjust with use of respiratory protocol s. - Perform airway clearance using vibratory PEP therapy. - Provide pain medications PRN and encourage other forms of pain relief. - Utilize fall prevention program. Keep room clutter free and appropriately lit. - Inspect Pt skin frequently, keep Pt clean and dry. Use nystatin powder as ordered. RESTRAINT-RELATED GOALS: STRATEGIES TO ACHIEVE RESTRAINT GOALS: Goal Evaluation: Mac was able to be wean from high flow nasal cannula to 5 lpm nc. Neb txs given via mask, tolerates well. bs appear clear, lan of Care - Mina Montero RN - 10/09/2017 5:45 AM PSTProblem: Patient Care Overview (Adult) Goal: Care Team Goals & Evaluation PROBLEM-RELATED GOALS: 1. Ron will maintain adequate oxygenation via oximetry with SpO2 >92 on RA by 10/12/2017. 2. Ron will have breath sounds consistent with baseline function throughout stay and rev erse airway bronchospasm when indicated. Reevaluate goal by 10/12/2017. 3. Ron will maintain a patent airway and effective airway clearance by 10/12/2017. 4. Ron will maintain a pain level of >2 with movement through 10/12/17. 5. Steven will remain free from falls through 10/12/17. 6. Steven will remain free from skin breakdown through 10/12/17. STRATEGY TO ACHIEVE GOALS: - Monitor saturations via oximetry and titrate to order as indicated. - Provide heated humidity and necessary FiO2 to maintain sats using high flow nasal cannula to provide break from the Bipap. - Ron will participate in PT per POC and mobilize with nursing as appropriate. - Administer respiratory medications as ordered and adjust with use of respiratory protocol s. - Perform airway clearance using vibratory PEP therapy. - Provide pain medications PRN and encourage other forms of pain relief. - Utilize fall prevention program. Keep room clutter free and appropriately lit. - Inspect Pt skin frequently, keep Pt clean and dry. Use nystatin powder as ordered. RESTRAINT-RELATED GOALS: STRATEGIES TO ACHIEVE RESTRAINT GOALS: Outcome: Improving Goal Evaluation: Influenza/Sepsis. Extubated 10/05. Patient on NC @ 5L O2, improving. [place] given for chron ic neck pain x2. Droplet precautions maintained. F/C d/c'ed 10/08/17, UOP good. Up in chair x2 . lan of Care - Shoaib Leary DIETARY AID - 10/08/2017 3:10 PM PSTProblem: Patient Care Overview (Adult) Goal: Care Team Goals & Evaluation PROBLEM-RELATED GOALS: 1. Ron will maintain adequate oxygenation via oximetry with SpO2 >92 on RA by 10/12/2017. 2. Ron will have breath sounds consistent with baseline function throughout stay and rev erse airway bronchospasm when indicated. Reevaluate goal by 10/12/2017. 3. Ron will maintain a patent airway and effective airway clearance by 10/12/2017. 4. Ron will maintain a pain level of >2 with movement. STRATEGY TO ACHIEVE GOALS: - Monitor saturations via oximetry and titrate to order as indicated.. -Provide heated humidity and necessary FiO2 to maintain sats using high flow nasal cannula to provide break from the Bipap. - Ron will participate in PT per POC and mobilize with nursing as appropriate. - Administer respiratory medications as ordered and adjust with use of respiratory protocol s. - Perform airway clearance using vibratory PEP therapy. -Provide pain medications PRN and encourage other forms of pain relief RESTRAINT-RELATED GOALS: STRATEGIES TO ACHIEVE RESTRAINT GOALS: Goal Evaluation: Patient improving. Titrating him off his High Flow Nasal Cannula. Now on 10 l/m and 45% FI O2. Good productive cough. Doing PEP therapy well. BS coarse at time. Clear and diminished. Will continue to monitor and treat. lan of Care - Arleth Craig RN - 10/08/2017 2:03 PM PSTProblem: Discharge Planning Goal: Patient will be discharged in a safe manner Outcome: Unchanged I called Mrs. Hood and let her know that I had spoken to Christine Garcia this afternoon reg cathyding a [employer] application. I placed it in the patient's ghost chart and let her know eliza t she needed to ask her 's RN to retrieve it for her. I instructed her to turn it in to the [facility] [employer] when completed and they would answer any questions she may have as Christine Garcia will be gone tomorrow. I let her know what documents she would need to have to c omplete the application as well. I faxed a referral to [place] through [facility] as well as she has no had time to visit the other SNFs yet. Electronically signed by: Arleth Vincent RN 10/08/2017 14:03 lan of Care - Merrill German, TELLO - 10/08/2017 11:00 AM PSTFormatting of this note might be different from alie ceron. Problem: Patient Care Overview (Adult) Goal: Care Team Goals & Evaluation PROBLEM-RELATED GOALS: 1. Ron will maintain adequate oxygenation via oximetry with SpO2 >92 on RA by 10/12/2017. 2. Ron will have breath sounds consistent with baseline function throughout stay and rev erse airway bronchospasm when indicated. Reevaluate goal by 10/12/2017. 3. Ron will maintain a patent airway and effective airway clearance by 10/12/2017. 4. Ron will maintain a pain level of >2 with movement. STRATEGY TO ACHIEVE GOALS: - Monitor saturations via oximetry and titrate to order as indicated.. -Provide heated humidity and necessary FiO2 to maintain sats using high flow nasal cannula to provide break from the Bipap. - Ron will participate in PT per POC and mobilize with nursing as appropriate. - Administer respiratory medications as ordered and adjust with use of respiratory protocol s. - Perform airway clearance using vibratory PEP therapy. -Provide pain medications PRN and encourage other forms of pain relief RESTRAINT-RELATED GOALS: STRATEGIES TO ACHIEVE RESTRAINT GOALS: Outcome: Improving Physical Therapy Plan of Care Treatment Note Summary: Ron has been participating in physical therapy for treatment of impaired activ ity tolerance and gross deconditioning following admit for hypoxic respiratory failure. Pat ient then with cardiac interventions and respiratory distress and intubated 10/03/17 and extu bated 10/04/17. Emphasis of session included upright tolerance, gentle seated therex and archie rt distance gt. Pt brought in pts 4ww from home. Patient demonstrates progress towards functional goals as evidenced by pt tolerated increase in gt however pt is limited d/t bein g on high flow O2. Remaining barriers to discharge and functional limitations include decre ased bed mobility, decreased functional transfers, decreased functional gait distance, decre ased gait velocity, stairs to enter the home, not able to navigate stairs, not yet able to m obilize at level safe for home discharge. Ron will benefit from continued therapeutic intervention to address ongoing impairments and increase safety and independence with activities necessary for safe discharge. Refer be low for specific details regarding functional levels. Physical Therapy Discharge Recommendations are: Recommended discharge disposition: inpatient rehabilitation facility, residential faci lity (vs, TBD) Post discharge physical therapy recommendation: pt is motivated participant Equipment Recommendations: (has needed DME) Planned Interventions: balance training, bed mobility training, gait training, home exerci se program, patient/family education, stair training, strengthening, transfer training Recommended Frequency: 5 times/wk Patient Status/Goals: Reflects last filed data and may be from multiple contributors. Gait limited mobility d/t high flow O2 NC; pt needing assist with lines; pt saran 4ww from home; pt much happier using it Level of [place]: contact guard assist, verbal cues required Assistive Device: 2 wheeled walker (FWW) Distance (feet): 5 feet f/b x3 seated rest; 5 feet f/b 2 Gait Pattern Analysis: 2-point gait Gait Deviations: double stance time increased, limb motion velocity decreased, step length decreased Safety Issues: step length decreased, weight-shifting ability decreased Impairments: pain, strength decreased, impaired balance Transfers pt needing extra time and effort, needing several scoots to get to edge of chair; cues for hand placement and proper use of brakes on 4ww; limited mobility d/t high flow NC Bed-Chair, Level of [place]: contact guard assist, verbal cues required, set up requir ed Chair-Bed, Level of [place]: not tested [id number], Assistive Device: 2 wheeled walker (FWW) Sit-Stand, Level of [place]: verbal cues required, contact guard assist, set up requir ed Stand-Sit, Level of [place]: contact guard assist, verbal cues required, set up requir ed [id number], Assistive Device: 2 wheeled walker (FWW) Safety Issues: step length decreased, weight-shifting ability decreased Impairments: strength decreased, impaired balance Bed Mobility NT; pt up in chair on arrival and requested to stay up in chair post tx Therapeutic Exercise pt instructed in gentle seated therex Seated exercises: bilateral, ankle pumps, marching, long arc quads Repetitions: 2 sets of 10 Functional Endurance pt able to tolerate more activity today; droped to 89% by end of session, recovered with 2 pursed lip breaths PT Goal Review Date Flowsheet Row Most Recent Value STG Review Date 10/13/17 at 10/06/2017 1340 All Bed Mobility Goal Flowsheet Row Most Recent Value STG Status progressing at 10/08/2017 1130 STG [place] Level modified independent at 10/06/2017 1340 [id number] Goal Flowsheet Row Most Recent Value STG Status progressing at 10/08/2017 1130 STG [place] Level modified independent at 10/06/2017 1340 STG Assistive Device 4 wheeled walker (4WW) at 10/06/2017 1340 Gait Goal Flowsheet Row Most Recent Value STG Status progressing at 10/08/2017 1130 STG [place] Level modified independent at 10/06/2017 1340 STG Assistive Device 4 wheeled walker (4WW) at 10/06/2017 1340 STG Distance (feet) 50 at 10/06/2017 1340 Stair Goal Flowsheet Row Most Recent Value STG Status new at 10/06/2017 1340 STG [place] Level modified independent at 10/06/2017 1340 STG Assistive Device 2 rails at 10/06/2017 1340 STG Number of Stairs 4 at 10/06/2017 1340 Electronically signed by: Merrill Evans PTA, 10/08/2017 11:32 lan of Care - Roshan napier, Kelly Mai, BARRON - 10/08/2017 5:56 AM PSTProblem: Patient Care Overview (Adult) Goal: Care Team Goals & Evaluation PROBLEM-RELATED GOALS: 1. Ron will maintain adequate oxygenation via oximetry with SpO2 >92 on RA by 10/12/2017. 2. Ron will have breath sounds consistent with baseline function throughout stay and rev erse airway bronchospasm when indicated. Reevaluate goal by 10/12/2017. 3. Ron will maintain a patent airway and effective airway clearance by 10/12/2017. 4. Ron will maintain a pain level of >2 with movement. STRATEGY TO ACHIEVE GOALS: - Monitor saturations via oximetry and titrate to order as indicated.. -Provide heated humidity and necessary FiO2 to maintain sats using high flow nasal cannula to provide break from the Bipap. - Ron will participate in PT per POC and mobilize with nursing as appropriate. - Administer respiratory medications as ordered and adjust with use of respiratory protocol s. - Perform airway clearance using vibratory PEP therapy. -Provide pain medications PRN and encourage other forms of pain relief RESTRAINT-RELATED GOALS: STRATEGIES TO ACHIEVE RESTRAINT GOALS: Goal Evaluation: Jenaro was able to tolerate NIV for a couple of hours via [place] mask but then replaced high f low nasal cannula FiO2 70%. Neb txs given Q4. He states hes coughing up red secretions but u nable to show respiratory, only clear was present. lan of Care - Terry Thornton RN - 10/08/2017 5:40 AM PSTProblem: Patient Care Overview (Adult) Goal: Care Team Goals & Evaluation PROBLEM-RELATED GOALS: 1. Ron will maintain adequate oxygenation via oximetry with SpO2 >92 on RA by 10/12/2017. 2. Ron will have breath sounds consistent with baseline function throughout stay and rev erse airway bronchospasm when indicated. Reevaluate goal by 10/12/2017. 3. Ron will maintain a patent airway and effective airway clearance by 10/12/2017. 4. Ron will maintain a pain level of >2 with movement. STRATEGY TO ACHIEVE GOALS: - Monitor saturations via oximetry and titrate to order as indicated.. -Provide heated humidity and necessary FiO2 to maintain sats using high flow nasal cannula to provide break from the Bipap. - Ron will participate in PT per POC and mobilize with nursing as appropriate. - Administer respiratory medications as ordered and adjust with use of respiratory protocol s. - Perform airway clearance using vibratory PEP therapy. -Provide pain medications PRN and encourage other forms of pain relief RESTRAINT-RELATED GOALS: STRATEGIES TO ACHIEVE RESTRAINT GOALS: Outcome: Unchanged Goal Evaluation: Patient remains on high flow NC with adequate oxygen saturation; attempted BiPAP but did n ot tolerate well; continues to use PEP. Patient up to chair multiple times; 1 person assist , with FWWLuke for pain with moderate improvement. lan of Care - Judi Roth RN - 10/07/2017 6:55 PM PSTProblem: Patient Care Overview (Adult) Goal: Care Team Goals & Evaluation PROBLEM-RELATED GOALS: 1. Ron will maintain adequate oxygenation via oximetry with SpO2 >92 on RA by 10/12/2017. 2. Ron will have breath sounds consistent with baseline function throughout stay and rev erse airway bronchospasm when indicated. Reevaluate goal by 10/12/2017. 3. Ron will maintain a patent airway and effective airway clearance by 10/12/2017. 4. Ron will maintain a pain level of >2 with movement. STRATEGY TO ACHIEVE GOALS: - Monitor saturations via oximetry and titrate to order as indicated.. -Provide heated humidity and necessary FiO2 to maintain sats using high flow nasal cannula to provide break from the Bipap. - Ron will participate in PT per POC and mobilize with nursing as appropriate. - Administer respiratory medications as ordered and adjust with use of respiratory protocol s. - Perform airway clearance using vibratory PEP therapy. -Provide pain medications PRN and encourage other forms of pain relief RESTRAINT-RELATED GOALS: STRATEGIES TO ACHIEVE RESTRAINT GOALS: Outcome: Unchanged Goal Evaluation: Extubated 10/05. Patient on high flow NC with plans for Bipap at night. Has intermittent pi nk/white thick sputum. VSS day. [place] x3 for generalized pain. continues to refuse to w ear mask for positive flu in room, agreed to wear mask when leaving pt. Room. lan of Care - Arleth Craig RN - 10/07/2017 6:45 PM PSTProblem: Discharge Planning Goal: Patient will be discharged in a safe manner Outcome: Unchanged I visited with and Mrs Hood this afternoon regarding discharge planning. They live in [place], [place] a mobile home with four steps with a handrail leading to the entrance. He is normally independent and drives. They are very concerned regarding this hospital bi ll and I called and left a message for Christine Garcia from [employer] requesting a visit tomorrow to see if they are eligible for any services or lotus. His PCP is Dr. Matson. Darshan reyes is a and is 40% service connected per Lulu at the [place]. He uses the [employer] or the [place] pharmacy. He owns a WC, a 4WW and a cane. He chose [facility] as his D [place] agency of choice. We also discussed [facility] in [place] and the [place] for DME. He is ag reeable to Home Health services as well. For a "Plan B" he chose: 1) [place] and Mrs Sania Noble will take a look at [facility], [facility] and [facility]a parry nd let me know their second and third choices. I placed the preference sheets in the ghost chart. She will transport him home if he discharges home straight from the hospital. CM pl justin continue to follow. Electronically signed by: Arleth Vincent, ALFONSO 10/07/2017 18:45 Discharge Disposition: TBD lan of Care - Lorelei Church RRT - 10/07/2017 5:36 PM PSTProblem: Patient Care Overview (Adult) Goal: Care Team Goals & Evaluation PROBLEM-RELATED GOALS: 1. Ron will maintain adequate oxygenation via oximetry with SpO2 >92 on RA by 10/12/2017. 2. Ron will be mod I with mobility in room and in hallways by 10/13/16. 3. Ron will have breath sounds consistent with baseline function throughout stay and rev erse airway bronchospasm when indicated. Reevaluate goal by 10/12/2017. 4. Ron will maintain a patent airway and effective airway clearance by 10/12/2017. STRATEGY TO ACHIEVE GOALS: - Monitor saturations via oximetry and titrate to order as indicated. - Provide PPV ventilation and monitor every 2 hours. Monitor Carbon dioxide with End tidal carbon dioxide and/or arterial blood gases. -Provide heated humidity and necessary FiO2 to maintain sats using high flow nasal cannula to provide break from the Bipap. - Ron will participate in PT per POC and mobilize with nursing as appropriate. 3. Administer respiratory medications as ordered and adjust with use of respiratory protoco ls. 4. Perform airway clearance using vibratory PEP therapy. RESTRAINT-RELATED GOALS: STRATEGIES TO ACHIEVE RESTRAINT GOALS: Outcome: Improving Goal Evaluation: The patient has been off the bipap since 0730 this morning, using the highflow, and tolera ting it well. He appreciates his breathing treatments and states they afford him much relief . I trialed him on a normal cannula this morning at 6 liters and he desaturated to 83%. He d oes have very slight red blood streaks in his sputum today. He is easily fatigued. I have t old the patient it is in his best interest to sleep tonight using the V60 to rest. He is agr eeable. Electronically signed by: Lorelei Cruz RRT 10/07/2017 17:36 lan of Care - Monalisa son, Mirna, PT - 10/07/2017 1:40 PM PSTFormatting of this note might be different from t vikash original. Problem: Patient Care Overview (Adult) Goal: Care Team Goals & Evaluation PROBLEM-RELATED GOALS: 1. Ron will maintain adequate oxygenation via oximetry with SpO2 >92 on RA by 10/07/2017. 2. Ron will be mod I with mobility in room and in hallways by 10/13/16. 3. Ron will have breath sounds consistent with baseline function throughout stay and rev erse airway bronchospasm when indicated. Reevaluate goal by 10/09/2017. 4. Ron will maintain a patent airway and effective airway clearance by 10/09/2017. STRATEGY TO ACHIEVE GOALS: - Monitor saturations via oximetry and titrate to order as indicated. - Provide PPV ventilation and monitor every 2 hours. Monitor Carbon dioxide with End tidal carbon dioxide and/or arterial blood gases. -Provide heated humidity and necessary FiO2 to maintain sats using high flow nasal cannula to provide break from the Bipap. - Ron will participate in PT per POC and mobilize with nursing as appropriate. 3. Administer respiratory medications as ordered and adjust with use of respiratory protoco ls. 4. Perform airway clearance using vibratory PEP therapy. RESTRAINT-RELATED GOALS: STRATEGIES TO ACHIEVE RESTRAINT GOALS: Outcome: Unchanged Physical Therapy Plan of Care Treatment Note Summary: Ron has been participating in physical therapy for treatment of impaired act ivity tolerance and gross deconditioning following admit for hypoxic respiratory failure. P atient then with cardiac interventions and respiratory distress and intubated 10/03/17 and ex tubated 10/04/17. Emphasis of session included activity tolerance. Patient demonstrates pro ne towards functional goals as evidenced by increased ability to perform standing exercis es. Patient willing to participate, hesitant due to patient was just up. Remaining ba rriers to discharge and functional limitations include decreased bed mobility, decreased fun ctional transfers, decreased functional gait distance, decreased gait velocity, stairs to en ter the home, not able to navigate stairs, not yet able to mobilize at level safe for home d ischarge, [facility] indicating significant impairment with basic functional mobility and medical status. Ron will benefit from continued therapeutic intervention to address ongoing impairments and increase safety and independence with activities necessary for safe discharge. Refer be low for specific details regarding functional levels. Physical Therapy Discharge Recommendations are: Recommended discharge disposition: inpatient rehabilitation facility, residential faci lity (vs, TBD) Post discharge physical therapy recommendation: pt is motivated participant Equipment Recommendations: (has needed DME) Planned Interventions: balance training, bed mobility training, gait training, home exerci se program, patient/family education, stair training, strengthening, transfer training Recommended Frequency: 5 times/wk Patient Status/Goals: Reflects last filed data and may be from multiple contributors. Gait assist for line management, still limited by high flow Level of [place]: minimal assist (75% patient effort) Assistive Device: 2 wheeled walker (FWW) Distance (feet): 3 Transfers impaired activity tolerance, cues for safety and hand placement; limited mobility d/t on hi gh flow NC Bed-Chair, Level of [place]: contact guard assist, verbal cues required, set up requir ed Chair-Bed, Level of [place]: not tested [id number], Assistive Device: 2 wheeled walker (FWW) Sit-Stand, Level of [place]: verbal cues required, tactile cues required, contact guar d assist Stand-Sit, Level of [place]: contact guard assist, verbal cues required [id number], Assistive Device: 2 wheeled walker (FWW) Impairments: strength decreased, impaired balance Bed Mobility increased time, assist for line management Supine to Sit, Level of [place]: moderate assist (50% patient effort), verbal cues req uired, tactile cues required Safety Issues: decreased use of arms for pushing/pulling, decreased use of legs for bridgin g/pushing Impairments: strength decreased, impaired balance (activity tolerance) Therapeutic Exercise Standing exercises: marching Repetitions: x1 minute Functional Endurance gross deconditioning 14 L/min at 75% FiO2 os sats 93-96% PT Goal Review Date Flowsheet Row Most Recent Value STG Review Date 10/13/17 at 10/06/2017 1340 All Bed Mobility Goal Flowsheet Row Most Recent Value STG Status progressing at 10/07/2017 1340 STG [place] Level modified independent at 10/06/2017 1340 Qug-Qlexh-Bym Goal Flowsheet Row Most Recent Value STG Status progressing at 10/07/2017 1340 STG [place] Level modified independent at 10/06/2017 1340 STG Assistive Device 4 wheeled walker (4WW) at 10/06/2017 1340 Gait Goal Flowsheet Row Most Recent Value STG Status progressing at 10/07/2017 1340 STG [place] Level modified independent at 10/06/2017 1340 STG Assistive Device 4 wheeled walker (4WW) at 10/06/2017 1340 STG Distance (feet) 50 at 10/06/2017 1340 Stair Goal Flowsheet Row Most Recent Value STG Status new at 10/06/2017 1340 STG [place] Level modified independent at 10/06/2017 1340 STG Assistive Device 2 rails at 10/06/2017 1340 STG Number of Stairs 4 at 10/06/2017 1340 Electronically signed by: Mirna Galo, PT, 10/07/2017 13:47 lan of Care - Flavio is, Clau Lui, OT - 10/07/2017 12:06 PM PSTFormatting of this note might be different from alie reyes original. Problem: Patient Care Overview (Adult) Goal: Care Team Goals & Evaluation PROBLEM-RELATED GOALS: 1. Ron will maintain adequate oxygenation via oximetry with SpO2 >92 on RA by 10/07/2017. 2. Ron will be mod I with mobility in room and in hallways by 10/13/16. 3. Ron will have breath sounds consistent with baseline function throughout stay and rev erse airway bronchospasm when indicated. Reevaluate goal by 10/09/2017. 4. Ron will maintain a patent airway and effective airway clearance by 10/09/2017. STRATEGY TO ACHIEVE GOALS: - Monitor saturations via oximetry and titrate to order as indicated. - Provide PPV ventilation and monitor every 2 hours. Monitor Carbon dioxide with End tidal carbon dioxide and/or arterial blood gases. -Provide heated humidity and necessary FiO2 to maintain sats using high flow nasal cannula to provide break from the Bipap. - Ron will participate in PT per POC and mobilize with nursing as appropriate. 3. Administer respiratory medications as ordered and adjust with use of respiratory protoco ls. 4. Perform airway clearance using vibratory PEP therapy. RESTRAINT-RELATED GOALS: STRATEGIES TO ACHIEVE RESTRAINT GOALS: Occupational Therapy Plan of Care Initial Evaluation Note Summary: Ron presents to occupational therapy with Decreased fxl mobility, ADL perfor te, activity tolerance following hypoxic respiratory failure, pt on high flow O2 - see MD and P for details. Objective exam reveals impairments with aerobic capacity/endurance, erg onomics and body mechanics, gait, locomotion, and balance, ventilation and respiration/gas e xchange, and overall activity tolerance. Pt tolerated chair transfer today but required ludmila se CGA and extra time as well as second assist for line mgmt. No phys assist was required du ring transfer. Barriers to discharge and functional limitations include Pt has not complete d OOB ADLs yet and has not demonstrated fxl bathroom transfers. Ron will benefit from therapeutic intervention to address impairments and increase safet y and independence with activities necessary for safe discharge. Refer below for specific d etails regarding functional levels. Precautions/Limitations: falls, oxygen therapy device and L/min Precaution Comment: Flu/droplet precautions Previous Level of Function: Transferring: independent Ambulation: independent Toileting: independent Bathing: independent Dressing: independent Eating: independent Communication: understands/communicates without difficulty Swallowin-->difficulty swallowing liquids/foods, 0-->swallows foods/liquids without dif ficulty Equipment Currently Used at Home: none Prior Functional Level Comment: independent; use of SPC or 4WW Potential available assistance at discharge: Significant Relationships: spouse Living Environment/Accessibility: Lives With: spouse Living Arrangements: mobile home Home Accessibility: stairs (2 railings present), stairs to enter home Number of Stairs to Enter Home: 4 Stair Railings at Home: outside, present at both sides Living Environment Comment: walk-in shower Rehabilitation potential: good, to achieve stated therapy goals Occupational Therapy Discharge Recommendations are: Recommended discharge disposition: residential facility Post discharge occupational therapy recommendation: will benefit from structured setting, pt is motivated participant Equipment Recommendations: none Planned Interventions:ADL retraining, bed mobility training, transfer training Recommended Frequency: 4 times/wk Patient Status/Goals: Reflects last filed data and may be from multiple contributors. ADLs Did perform today as focus was on fxl mobility for further transfers for future ADLs. Bed Mobility Increased time, cues for safety, assist for line mgmt. Supine to Sit, Level of [place]: minimal assist (75% patient effort), verbal cues requ ired, tactile cues required, set up required, 1 person + 1 person to manage equipment Sit to Supine, Level of [place]: not tested Safety Issues: decreased use of arms for pushing/pulling, decreased use of legs for bridgin g/pushing Impairments: strength decreased, impaired balance Transfers Impaired activity tolerance, cues for safety, hand plcmt on FWW. Pt still on high flow O2 so limited in mobility. Bed-Chair, Level of [place]: contact guard assist, verbal cues required, set up requir ed, 1 person + 1 person to manage equipment Sit-Stand, Level of [place]: 1 person + 1 person to manage equipment, verbal cues requ ired, tactile cues required, contact guard assist Stand-Sit, Level of [place]: contact guard assist, 1 person + 1 person to manage equip ment, verbal cues required Cwr-Welxf-Vrr, Assistive Device: 2 wheeled walker (FWW) Impairments: strength decreased, impaired balance OT Goal Review Date Flowsheet Row Most Recent Value STG Review Date 10/10/17 at 10/07/2017 1157 Grooming Goal Flowsheet Row Most Recent Value STG Status new at 10/07/2017 1157 STG [place] Level stand by assist at 10/07/2017 1157 STG Position supported standing, standing at 10/07/2017 1157 STG Adaptive Equipment none at 10/07/2017 1157 Toilet Transfer Goal Flowsheet Row Most Recent Value STG Status new at 10/07/2017 1157 STG [place] Level stand by assist, set up required, verbal cues required at 8 1157 STG Assistive Device 2 wheeled walker (FWW), commode (3 in 1) [BSC over toilet] at 018 1157 Electronically signed by: Clau Ramírez, OT, 10/07/2017 12:03 lan of Care - Giulia Jones RN - 10/06/2017 6:47 PM PSTProblem: Patient Care Overview (Adult) Goal: Care Team Goals & Evaluation PROBLEM-RELATED GOALS: 1. Ron will maintain adequate oxygenation via oximetry with SpO2 >92 on RA by 10/07/2017. 2. Ron will be mod I with mobility in room and in hallways by 10/13/16. 3. Ron will have breath sounds consistent with baseline function throughout stay and rev erse airway bronchospasm when indicated. Reevaluate goal by 10/09/2017. 4. Ron will maintain a patent airway and effective airway clearance by 10/09/2017. STRATEGY TO ACHIEVE GOALS: - Monitor saturations via oximetry and titrate to order as indicated. - Provide PPV ventilation and monitor every 2 hours. Monitor Carbon dioxide with End tidal carbon dioxide and/or arterial blood gases. -Provide heated humidity and necessary FiO2 to maintain sats using high flow nasal cannula to provide break from the Bipap. - Ron will participate in PT per POC and mobilize with nursing as appropriate. 3. Administer respiratory medications as ordered and adjust with use of respiratory protoco ls. 4. Perform airway clearance using vibratory PEP therapy. RESTRAINT-RELATED GOALS: STRATEGIES TO ACHIEVE RESTRAINT GOALS: Outcome: Improving Goal Evaluation: Pt. Weaned off high flow NC this afternoon, currently on 4L NC. IV amiodarone off, bridging to PO tomorrow. PO metoprolol held. [place] X 3 for pain. continues to refuse to wear ma sk for positive flu in room, agreed to wear mask when leaving pt. Room. lan of Care - Ron Denton RRT - 10/06/2017 4:20 PM PSTProblem: Patient Care Overview (Adult) Goal: Care Team Goals & Evaluation PROBLEM-RELATED GOALS: 1. Ron will maintain adequate oxygenation via oximetry with SpO2 >92 on RA by 10/07/2017. 2. Ron will be mod I with mobility in room and in hallways by 10/13/16. 3. Ron will have breath sounds consistent with baseline function throughout stay and rev erse airway bronchospasm when indicated. Reevaluate goal by 10/09/2017. 4. Ron will maintain a patent airway and effective airway clearance by 10/09/2017. STRATEGY TO ACHIEVE GOALS: - Monitor saturations via oximetry and titrate to order as indicated. - Provide PPV ventilation and monitor every 2 hours. Monitor Carbon dioxide with End tidal carbon dioxide and/or arterial blood gases. -Provide heated humidity and necessary FiO2 to maintain sats using high flow nasal cannula to provide break from the Bipap. - Ron will participate in PT per POC and mobilize with nursing as appropriate. 3. Administer respiratory medications as ordered and adjust with use of respiratory protoco ls. 4. Perform airway clearance using vibratory PEP therapy. RESTRAINT-RELATED GOALS: STRATEGIES TO ACHIEVE RESTRAINT GOALS: Outcome: Improving Goal Evaluation: BS clear upper but with crackles in bases, SpO2 currently 95% on HFNC 6 lpm FiO2 100 - tit rating as able, Duonebs remain Q4, started PEP for airway clearance, NIV V60 in room on glenys dby - pt has been off most of the day and has been up to chair, no other interventions indic ated at this time lan of Care - Taryn Khoury, Speech Pathologist - 10/06/2017 2:30 PM PST Problem: Patient Care Overview (Adult) Goal: Care Team Goals & Evaluation PROBLEM-RELATED GOALS: 1. Ron will maintain adequate oxygenation via oximetry with SpO2 >92 on RA by 10/07/2017. 2. Ron will be mod I with mobility in room and in hallways by 10/13/16. 3. Ron will have breath sounds consistent with baseline function throughout stay and rev erse airway bronchospasm when indicated. Reevaluate goal by 10/09/2017. 4. Ron will maintain a patent airway and effective airway clearance by 10/09/2017. STRATEGY TO ACHIEVE GOALS: - Monitor saturations via oximetry and titrate to order as indicated. - Provide PPV ventilation and monitor every 2 hours. Monitor Carbon dioxide with End tidal carbon dioxide and/or arterial blood gases. -Provide heated humidity and necessary FiO2 to maintain sats using high flow nasal cannula to provide break from the Bipap. - Ron will participate in PT per POC and mobilize with nursing as appropriate. 3. Administer respiratory medications as ordered and adjust with use of respiratory protoco ls. 4. Perform airway clearance using vibratory PEP therapy. RESTRAINT-RELATED GOALS: STRATEGIES TO ACHIEVE RESTRAINT GOALS: Outcome: Improving Speech Therapy Plan of Care Initial Evaluation, Treatment, Discharge Note Summary: Pt seen for initial swallow upright in chair eval s/p admit for hypoxic respira tory failure requiring intubation from 10/03-10/05/17. Droplet precautions in place d/t influe nza B. CXR suspicious for pulmonary edema vs infiltrate. Pt on HFNC 6 lpm Sp02 96%, Fi02 100 %, RR 16 prior to PO. All vitals remained WNL during conversation and PO trials. Pt reports he is weak. Therapeutic oral care provided prior to PO trials to increase safety of oral int aman, Pt was able to complete this task with set up with no difficulty. See below for oral mo tor exam, PO trials and performance. GLASS CLEANING MACHINE TENDER recommends diet upgrade to regular textures with th in lquids with pt always upright in chair for meals. GLASS CLEANING MACHINE TENDER educated pt on pacing himself when eating. Staff to cut food for him d/t mild UE weakness, reduced dexterity. Pt verbalized und erstanding. No further skilled GLASS CLEANING MACHINE TENDER services needed at this time. Textures attempted during swallow assessment- able to self feed and manipulate all containe rs: Ground/ Chopped Both successful Mixed successful Bread successful Cracker successful Thin Successful by straw with no overt difficulty Thin with meds whole- successful Swallow Assessment: At bedside, signs of aspiration included: none Risk of aspiration: Minimal Swallow Recommendations Recommended Solid Texture: regular Recommended Liquid Texture: thin liquids Recommended Medication Delivery: whole pills with thin liquids Non Instrumental/Clinical Swallow Exam Consistencies Trialed: thin liquids, solid, puree, mixed consistencies, medications Mode of Presentation: self fed Oral Phase Results: intact oral phase without signs of dysfunction Pharyngeal Phase Results: safe swallow, no signs/symptoms of aspiration or penetration Oral Motor Structure and Function Oral Motor Structure and Function General Structure & Function: functional Dentition Assessment: present and adequate Secretion Management: WNL/WFL Mucosal Quality: good Volitional Swallow: no issues initiating volitional swallow Volitional Cough: no issues initiating volitional cough Oral Musculature General Assessment: WFL (within functional limits) Speech Language Pathology Discharge Recommendations are: Recommended discharge disposition: (Per PT/ OT) Post discharge speech language pathology recommendation: no further Speech Therapy Identified Problems Needing Skilled Intervention: Swallow WFL Planned Interventions: compensatory strategies, patient/caregiver education Recommended Frequency: (Eval only) Cognitive Oriented to place, time, situation Verbal Expression Full sentences Voice WFL Solid Texture Goal Flowsheet Row Most Recent Value STG Status new, met at 10/06/2017 1750 STG Pt will tolerate regular textures and htin liquids with no overt s/sx of airway compro mise. at 10/06/2017 1750 Electronically signed by: Taryn White Speech Pathologist, 10/06/2017 17:52 G oal Evaluation: TPlan of Care - Mirna Galo, PT - 10/06/2017 1:40 PM PSTFormatting of this note migh t be different from the original. Problem: Patient Care Overview (Adult) Goal: Care Team Goals & Evaluation PROBLEM-RELATED GOALS: 1. Ron will maintain adequate oxygenation via oximetry with SpO2 >92 on RA by 10/07/2017. 2. Ron will be mod I with mobility in room and in hallways by 10/13/16. STRATEGY TO ACHIEVE GOALS: - Monitor saturations via oximetry and titrate to order as indicated. - Provide PPV ventilation and monitor every 2 hours. Monitor Carbon dioxide with End tidal carbon dioxide and/or arterial blood gases. -Provide heated humidity and necessary FiO2 to maintain sats using high flow nasal cannula to provide break from the Bipap. - Ron will participate in PT per POC and mobilize with nursing as appropriate. RESTRAINT-RELATED GOALS: STRATEGIES TO ACHIEVE RESTRAINT GOALS: Physical Therapy Plan of Care Initial Evaluation Note Summary: Ron presents to physical therapy with impaired activity tolerance and gross deconditioning following admit for hypoxic respiratory failure. Patient then with cardiac i nterventions and respiratory distress and intubated 10/03/17 and extubated 10/04/17. Objectiv e exam reveals impairments with aerobic capacity/endurance, arousal, attention, and cognitio n, gait, locomotion, and balance, muscle performance. Patient reported that he was sore fro m being in bed for 3 days. He correctly recalled being in [facility] and that his had t o remind him that this AM as he thought he was at [facility]. Patient pleasant and agreeable. Re ported fatigue following transfer. Barriers to discharge and functional limitations include decreased functional activity [place], decreased bed mobility, decreased functional trans fers, decreased functional gait distance, stairs to enter the home, not yet able to mobilize at level safe for home discharge and AMPAC indicating significant impairment with basic fun ctional mobility. Ron will benefit from therapeutic intervention to address impairments and increase safet y and independence with activities necessary for safe discharge. Refer below for specific d etails regarding functional levels. Precautions/Limitations: falls, oxygen therapy device and L/min Precaution Comment: flu and droplet precautions Previous Level of Function: Transferring: independent Ambulation: independent Toileting: independent Bathing: independent Dressing: independent Eating: independent Communication: understands/communicates without difficulty Swallowin-->difficulty swallowing liquids/foods, 0-->swallows foods/liquids without dif ficulty Equipment Currently Used at Home: none Prior Functional Level Comment: independent; use of SPC or 4WW Potential available assistance at discharge: Significant Relationships: spouse Living Environment/Accessibility: Lives With: spouse Living Arrangements: mobile home Home Accessibility: stairs (2 railings present), stairs to enter home Number of Stairs to Enter Home: 4 Stair Railings at Home: outside, present at both sides Living Environment Comment: walk-in shower Patient/Family s Goals: Be able to get stronger again and then back home Rehabilitation potential: good, to achieve stated therapy goals Physical Therapy Discharge Recommendations are: Recommended discharge disposition: inpatient rehabilitation facility, home with assist (vs , TBD) Post discharge physical therapy recommendation: pt is motivated participant Equipment Recommendations: (has needed DME) Planned Interventions: balance training, bed mobility training, gait training, home exerci se program, patient/family education, stair training, strengthening, transfer training Recommended Frequency: 5 times/wk Patient Status/Goals: Reflects last filed data and may be from multiple contributors. Gait limited mobiltiy d/t high flow O2 needs Stairs Unable to assess stairs at this time due to limited mobility as on high-flow, but he has stairs at home and needs training on stair management. Transfers impaired activity tolerance and need for cues for safety in hand placement; limited mobilti y d/t high flow O2 needs Chair-Bed, Level of [place]: minimal assist (75% patient effort), 1 person + 1 person to manage equipment, verbal cues required, tactile cues required Ojb-Chuoz-Zre, Assistive Device: 2 wheeled walker (FWW) Sit-Stand, Level of [place]: minimal assist (75% patient effort), 1 person + 1 person to manage equipment, verbal cues required, tactile cues required Stand-Sit, Level of [place]: contact guard assist, 1 person + 1 person to manage equip ment, verbal cues required Fqe-Suegy-Vne, Assistive Device: 2 wheeled walker (FWW) Impairments: strength decreased, impaired balance (activity tolerance) Bed Mobility increased time and cues for safety Supine to Sit, Level of [place]: moderate assist (50% patient effort), 1 person + 1 pe rson to manage equipment, verbal cues required, tactile cues required Impairments: strength decreased, impaired balance (activity tolerance) Balance Sitting Balance: Static: good balance Sitting Balance: Dynamic: good balance Standing Balance: Static: good balance Standing Balance: Dynamic: fair balance Functional Endurance gross deconditioning, limited by being on high-flow oxygen ROM L LE ROM: grossly WFL R LE ROM: grossly WFL Strength L LE Strength: gross deconditioning due to prolonged bedrest R LE Strength: gross deconditioning due to prolonged bedrest [facility] BASIC MOBILITY [facility] BASIC MOBILITY Turning over in bed: a little difficulty without assistance Sitting down /standing up from arm chair: a little difficulty without assistance Moving from supine to sitting on edge of bed: a little difficulty without assistance Moving to and from a bed to a chair : mod or max assist/a lot of help Walking in hospital room: mod or max assist/a lot of help Climbing 3-5 steps with a railing: dependent/unable TOTAL - [facility] BASIC MOBILITY : 14 Completed the [facility] Activity Measure for Post Acute Care (AM-PAC) "6 Clicks" [facility] Mobility Inpatient Short Form. This version of the AM-PAC is an assessment tool used to measure a person's level of disability in performing basic mobility tasks. This patient's score indicates a performance of 61.29% impairment in the functioning of basic mobility. Raw Score - Functional Limitation % (for CMS) - "Severity Modifier" CN 6 - 100.00 CM 7 - 92.36 8 - 86.62 9 - 81.38 CL 10 - 76.75 11 - 72.57 12 - 68.66 13 - 64.91 14 - 61.29 CK 15 - 57.70 16 - 54.16 17 - 50.57 18 - 46.58 19 - 41.77 CJ 20 - 35.83 21 - 28.97 22 - 20.91 CI 23 - 11.2 CH 24 - 0.00 Predicted Discharge During Acute Hospitalization (Raw Score) Home = 20.1 With assist = 17.9 SNF = 14 IRF = 13.6 LTAC = 11.5 PT Goal Review Date Flowsheet Row Most Recent Value STG Review Date 10/13/17 at 10/06/2017 1340 All Bed Mobility Goal Flowsheet Row Most Recent Value STG Status new at 10/06/2017 1340 STG [place] Level modified independent at 10/06/2017 1340 Rex-Nlixy-Dvv Goal Flowsheet Row Most Recent Value STG Status new at 10/06/2017 1340 STG [place] Level modified independent at 10/06/2017 1340 STG Assistive Device 4 wheeled walker (4WW) at 10/06/2017 1340 Gait Goal Flowsheet Row Most Recent Value STG Status new at 10/06/2017 1340 STG [place] Level modified independent at 10/06/2017 1340 STG Assistive Device 4 wheeled walker (4WW) at 10/06/2017 1340 STG Distance (feet) 50 at 10/06/2017 1340 Stair Goal Flowsheet Row Most Recent Value STG Status new at 10/06/2017 1340 STG [place] Level modified independent at 10/06/2017 1340 STG Assistive Device 2 rails at 10/06/2017 1340 STG Number of Stairs 4 at 10/06/2017 1340 Electronically signed by: Mirna Galo, PT, 10/06/2017 14:23 lan of Care - Ashleigh Pritchard RN - 10/06/2017 4:46 AM PSTProblem: Patient Care Overview (Adult) Goal: Care Team Goals & Evaluation PROBLEM-RELATED GOALS: 1. Ron will maintain adequate oxygenation via oximetry with SpO2 >92 on RA by 10/07/2017. STRATEGY TO ACHIEVE GOALS: - Monitor saturations via oximetry and titrate to order as indicated. - Provide PPV ventilation and monitor every 2 hours. Monitor Carbon dioxide with End tidal carbon dioxide and/or arterial blood gases. -Provide heated humidity and necessary FiO2 to maintain sats using high flow nasal cannula to provide break from the Bipap. RESTRAINT-RELATED GOALS: STRATEGIES TO ACHIEVE RESTRAINT GOALS: Outcome: Improving Goal Evaluation: Extubated yesterday afternoon. On bipap overnight. [place] X 3 given for pain. A/O slight co nfusion. VSS lan of Care - Lauren Riley RRT - 10/06/2017 12:13 AM PSTProblem: Patient Care Overview (Adult) Goal: Care Team Goals & Evaluation PROBLEM-RELATED GOALS: 1. Rno will maintain adequate oxygenation via oximetry with SpO2 >92 on RA by 10/07/2017. STRATEGY TO ACHIEVE GOALS: - Monitor saturations via oximetry and titrate to order as indicated. - Provide PPV ventilation and monitor every 2 hours. Monitor Carbon dioxide with End tidal carbon dioxide and/or arterial blood gases. -Provide heated humidity and necessary FiO2 to maintain sats using high flow nasal cannula to provide break from the Bipap. RESTRAINT-RELATED GOALS: STRATEGIES TO ACHIEVE RESTRAINT GOALS: Goal Evaluation: Ron has been on heated high flow or non-invasive ventilation through the night. His SP O2 has ranged 96-99%. Breathing treatments given as scheduled, breath sounds appear diminis hed. Patient is anxious on the non-invasive ventilation unit as it produces larges tidal vo lumes due to high leak. Leak is related to patient's facial hair. lan of Care - Lorelei Church RRT - 10/05/2017 6:11 PM PSTProblem: Patient Care Overview (Adult) Goal: Care Team Goals & Evaluation PROBLEM-RELATED GOALS: 1. Ron will maintain adequate oxygenation via oximetry with SpO2 >92 on RA by 10/07/2017. STRATEGY TO ACHIEVE GOALS: - Monitor saturations via oximetry and titrate to order as indicated. - Provide PPV ventilation and monitor every 2 hours. Monitor Carbon dioxide with End tidal carbon dioxide and/or arterial blood gases. -Provide heated humidity and necessary FiO2 to maintain sats using high flow nasal cannula to provide break from the Bipap. RESTRAINT-RELATED GOALS: STRATEGIES TO ACHIEVE RESTRAINT GOALS: Goal Evaluation: Patient breath sounds are coarse, but he has an effective cough. Post extubation he desatu rated and was placed on the V60 bipap for oxygenation and respiratory support. He is taking occasional breaks from the Bipap on the high flow nasal cannula, requiring high flows and hi gh FiO2 to maintain sats greater than 92%. Continue to assist him in managing secretions, g marilu scheduled treatments and maintain saturations to support cardiac function. Electronicall y signed by: Lorelei Cruz RRT 10/05/2017 18:10 p Note - Jesse Weir MD - 10/05/2017 11:20 AM PSTUpper endoscopy was remarkable for inflammation just dista l to the EG junction. NG tube trauma was noted along the greater curvature. Some antral ga stritis and duodenitis. 2 linear ulcerations were noted along the lesser curvature. The la rger one had 2 areas at the couldn't be visible vessels as such 2 clips were placed across t he base of the vessels in 2 clips were used to close the linear ulceration. There is no sig ns of active bleeding at the time of upper endoscopy. I would recommend that placement of t he NG tube the confirmed due to the fact that the NG tube may migrate proximal with removal of the upper endoscope. Dr. Napier anesthesia services was present and manage the additiona l sedation required -C Instructions Provation - Terry Weir MD - 10/05/2017 10:56 AM PSTDischarge Instructions for Upper Endoscopy Patient: Ron Hood : 1955 Acct: [id number] Exam Date: Thursday, October 05, 2017 Doctor: Terry Weir MD The chances of difficulty following this procedure are minimal. The following instructions will assist you in your recovery. 1. Do Not eat or drink anything for 1 hour. Try sips of water first. If tolerated, resume your regular diet or one recommended by your physician. 2. Do not drive, operate machinery, make critical decisions, or do activities that require coordination or balance for 24 hours. 3. You may experience a sore throat for 24 - 48 hours. You may use throat lozenges or gargle with warm salt water to relieve the discomfort. 4. Because air was put into your stomach druing the procedure, you may experience some belching. 5. Do not use any medication containing aspirin for 10 days, unless otherwise directed by your physician. 6. Sometimes the medications given to you druing the exam can aggravate the veins. The chemical irritation can cause inflammation or pain along the arm with redness, swelling and warmth. This does not mean there is an infection. You can treat the affected area by applying warm, wet compresses (towels) 4 times a day for 20 minutes at a time until inflammation is resolved 7. Report to your doctor: Chills and/or fever over 100 Persistent vomiting or vomiting with blood/nasal regurgitation Severe abdominal pain, other than gas cramps Severe chest pain Black, tarry stools You may reach your physician at Work: . If unable to reach your physician, call [facility] Emergency Department at Ext. [phone] Your doctor recommends these additional instructions: Do not eat or drink anything today. Continue your present medications. Your clinical course will be observed. Your physician has recommended a repeat upper endoscopy as needed for retreatment. These instructions have been explained to the patient and/or escort. A copy has been given to the patient/escort. Nurse Signature Patient Signature Escort Signature Date Terry Weir MD 10/05/2017 11:29:44 AM This report has been signed electronically.Electronically signed by Terry Weri MD at 11:30 AM PSTPlan Care - Blanche Fine RRT - 10/05/2017 5:31 AM PSTProblem: P atient Care Overview (Adult) Goal: Care Team Goals & Evaluation PROBLEM-RELATED GOALS: 1. Ron will maintain adequate oxygenation via oximetry with SpO2 >92 by 10/07/2017. 2. Will maintain airway and adequate ventilation with use of 840 and wean off by 10/07/2017. STRATEGY TO ACHIEVE GOALS: - Monitor saturations via oximetry and titrate to order as indicated. - Provide PPV ventilation and monitor every 2 hours. Monitor Carbon dioxide with End tidal carbon dioxide and/or arterial blood gases. RESTRAINT-RELATED GOALS: STRATEGIES TO ACHIEVE RESTRAINT GOALS: Goal Evaluation: Pt continues on ventilator with no changes made. Chest is essentially clear throughout, no distress noted lan of Care - Ashleigh Bolton RN - 10/05/2017 4:00 AM PSTProblem: Patient Care Overview (Adult) Goal: Care Team Goals & Evaluation PROBLEM-RELATED GOALS: 1. Ron will maintain adequate oxygenation via oximetry with SpO2 >92 by 10/07/2017. 2. Will maintain airway and adequate ventilation with use of 840 and wean off by 10/07/2017. STRATEGY TO ACHIEVE GOALS: - Monitor saturations via oximetry and titrate to order as indicated. - Provide PPV ventilation and monitor every 2 hours. Monitor Carbon dioxide with End tidal carbon dioxide and/or arterial blood gases. RESTRAINT-RELATED GOALS: STRATEGIES TO ACHIEVE RESTRAINT GOALS: Outcome: Improving Goal Evaluation: Continues on 60 mcg propofol. Lightly sedated. Will titrate down this am. VSS. Afebrile ov ernight. lan of Amelia Allan RRT - 10/04/2017 6:07 PM PSTProblem: Patient Care Overview (Adult) Goal: Care Team Goals & Evaluation PROBLEM-RELATED GOALS: 1. Ron will maintain adequate oxygenation via oximetry with SpO2 >92 by 10/07/2017. 2. Will maintain airway and adequate ventilation with use of 840 and wean off by 10/07/2017. STRATEGY TO ACHIEVE GOALS: - Monitor saturations via oximetry and titrate to order as indicated. - Provide PPV ventilation and monitor every 2 hours. Monitor Carbon dioxide with End tidal carbon dioxide and/or arterial blood gases. RESTRAINT-RELATED GOALS: STRATEGIES TO ACHIEVE RESTRAINT GOALS: Outcome: Improving Goal Evaluation: SpO2 100 % on mechanical ventilation at flow rate 60L/min Vent changes made today RR to 12 Fio2 to 40%. Suctioned mod amt thick white /red secretio ns. Patient has a strong cough. PAtient assisting ventilator will probable extubate tomorr ow. Patient remains on PPV, looks comfortable. lan of Richar Demetra Barron RN - 10/04/2017 4:34 PM PSTProblem: Restraint/Seclusion Use for Patient Safety Goal: Individualization/Patient-Specific Restraint Care Individualization: Patient's unique needs, preferences, requests, personal goals, or care interventions/approaches. Outcome: Improving lan of Richar Demetra Vaughn RN - 10/04/2017 4:31 PM PSTProblem: Restraint/Seclusion Use for Patient Safety Goal: Treatment Continues With Absence of Harm to Self or Others Outcome: Absence of harm achieved by using least restrictive restraint method, providing ap propriate level of personal care and activity, and releasing restraint when clinically attai nable. Outcome: Improving lan of Keyonna Magallon - 10/04/2017 11:45 AM PSTDischarge planning: Ron is currently intubated. will need to follow up once he is extubated. Ron lives with his spouse in [place]. Ron is normally independent with his needs. Ron [facility]. PCP: Dano UPTON will need to follow up with Ron closer to discharge. Electronically signed by: Keyonna Goel 10/04/2017 11:51 lan of Care - Junior Villanueva Chaplain - 10/04/2017 10:30 AM PSTProblem: Patient Care Overview (Adult) Goal: Care Team Goals & Evaluation PROBLEM-RELATED GOALS: 1. Ron will maintain adequate oxygenation via oximetry with SpO2 >92 by 10/07/2017. 2. Will maintain airway and adequate ventilation with use of 840 and wean off by 10/07/2017. STRATEGY TO ACHIEVE GOALS: - Monitor saturations via oximetry and titrate to order as indicated. - Provide PPV ventilation and monitor every 2 hours. Monitor Carbon dioxide with End tidal carbon dioxide and/or arterial blood gases. RESTRAINT-RELATED GOALS: STRATEGIES TO ACHIEVE RESTRAINT GOALS: Spiritual Care Ron Hood is a 61 y.o. male who is admitted for Pulmonary edema [J81.1]. Business Solutions Consultant visit was part of routine rounding. Spiritual Evaluation: Patient was sleeping. Debbie was resting at his bedside. She was hopeful about his cond ition and said that he is doing better today than yesterday. 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 She s aid that she was raised [employer], but is open religiously at this point. She desired rest t his morning. Spiritual Interventions: Loss Prevention Detective attended, offered care, listened actively, and explored meaning. Spiritual Outcomes: Debbie appreciated spiritual care and seemed able to cope with the situation. Spiritual Goals/Follow-up: Follow up as needed. lan of Care - Ashleigh Pack RN - 10/04/2017 4:51 AM PSTProblem: Patient Care Overview (Adult) Goal: Care Team Goals & Evaluation PROBLEM-RELATED GOALS: 1. Ron will maintain adequate oxygenation via oximetry with SpO2 >92 by 10/07/2017. 2. Will maintain airway and adequate ventilation with use of 840 and wean off by 10/07/2017. STRATEGY TO ACHIEVE GOALS: - Monitor saturations via oximetry and titrate to order as indicated. - Provide PPV ventilation and monitor every 2 hours. Monitor Carbon dioxide with End tidal carbon dioxide and/or arterial blood gases. RESTRAINT-RELATED GOALS: STRATEGIES TO ACHIEVE RESTRAINT GOALS: Outcome: Improving Goal Evaluation: Levophed stopped. Patient increasingly restless overnight. Max on propofol. Starting to ti trate down. Currently on 60 mcg. Fentanyl 25 X 3 given for complaints of pain. Trop slightly increased from previous. Febrile overnight. Tylenol given. ignificant Event - Ganga Lind MD - 10/03/2017 7:15 PM PSTPatient on EKG had new LBBB. Trop 12.5. Pillai d cardiology, patient went for [facility] with findings of: severe in-stent stenosis of L main to o stial LAD stent, Severe in-stent stenosis ostial proximal L circ stent. Patient was recommen ded if patient had cardiac instability to be transferred to [place], but at this time to [facility] treating with broad spectrum abx, fluid support. Hep gtt was not recommended. Patient will be continued on plavix, ASA, statin. Patient was continued on azithromycin, ceftriaxone . Maintenance IVFs was started given L ventricular filling pressures and unchanged Ef. Patie nt was weaned off levophed during the day. Awaiting for cultures. lan of Care - Shoaib Bueno, DIETARY AID - [phone] 6:51 PM PSTProblem: Patient Care Overview (Adult) Goal: Care Team Goals & Evaluation PROBLEM-RELATED GOALS: 1. Ron will maintain adequate oxygenation via oximetry with SpO2 >92 by 10/07/2017. 2. Will maintain airway and adequate ventilation with use of 840 and wean off by 10/07/2017. STRATEGY TO ACHIEVE GOALS: - Monitor saturations via oximetry and titrate to order as indicated. - Provide PPV ventilation and monitor every 2 hours. Monitor Carbon dioxide with End tidal carbon dioxide and/or arterial blood gases. RESTRAINT-RELATED GOALS: STRATEGIES TO ACHIEVE RESTRAINT GOALS: Goal Evaluation: Patient was a direct admit from [facility]. Respiratory Failure. Tested positive for influe nza B. Taken to cathlab today. Titrating down on FIo2. On 90%, VT550, SIMV 22, Peep 5, PS 10 . BS coarse. Sputum to lab. Will continue to monitor and follow. lan of Care - Demetra Garcia, ALFONSO - 10/03/2017 1:38 PM PSTProblem: Patient Care Overview (Adult) Goal: Care Team Goals & Evaluation PROBLEM-RELATED GOALS: STRATEGY TO ACHIEVE GOALS: RESTRAINT-RELATED GOALS: STRATEGIES TO ACHIEVE RESTRAINT GOALS: Goal Evaluation: documented in this en counter Plan of Treatment +--------+ + + + + | Date | Type | Specialty | Care Team | Description | +--------+ + + + + | 03/12/ | Office | Nephrology | [facility], | | | 2019 | Visit | | [address] | | | | | | [facility] | | | | | | [address] [place] | | | | | | [id number] | | | | | | | | +--------+ + + + + | 04/16/ | Office | Cardiology | [facility] | | | 2019 | Visit | | MD Cheryl Arreguin | | | | | | [address] | | | | | | [place] [address] | | | | | | [phone] | | | | | | | [...] [place] | | | | | | [id number] | | | | | | | | +--------+ + + + + documented as of this encounter Procedures + +--------+ + + + | Procedure Name | Priori | Date/Time | Associated Diagnosis | Comments | | | ty | | | | + +--------+ + + + | POC GLUCOSE | Routin | 10/10/2017 | | Results for this | | | e | 11:42 AM | | procedure are in the | | | | PST | | results section. | + +--------+ + + + | POC GLUCOSE | Routin | 10/10/2017 | | Results for this | | | e | 6:36 AM | | procedure are in the | | | | PST | | results section. | + +--------+ + + + | POC GLUCOSE | Routin | 10/09/2017 | | Results for this | | | e | 8:42 PM | | procedure are in the | | | | PST | | results section. | + +--------+ + + + | POC GLUCOSE | Routin | 10/09/2017 | | Results for this | | | e | 4:59 PM | | procedure are in the | | | | PST | | results section. | + +--------+ + + + | POC GLUCOSE | Routin | 10/09/2017 | | Results for this | | | e | 11:55 AM | | procedure are in the | | | | PST | | results section. | + +--------+ + + + | RESPIRATORY THERAPY | Routin | 10/09/2017 | | | | COMMUNICATION | e | 10:24 AM | | | | | | PST | | | + +--------+ + + + | POC GLUCOSE | Routin | 10/09/2017 | | Results for this | | | e | 6:38 AM | | procedure are in the | | | | PST | | results section. | + +--------+ + + + | EXTRA LAVENDER TOP | Routin | 10/09/2017 | | Results for this | | TUBE | e | 5:05 AM | | procedure are in the | | | | PST | | results section. | + +--------+ + + + | BASIC METABOLIC | Routin | 10/09/2017 | | Results for this | | PANEL | e | 5:05 AM | | procedure are in the | | | | PST | | results section. | + +--------+ + + + | POC GLUCOSE | Routin | 10/08/2017 | | Results for this | | | e | 9:11 PM | | procedure are in the | | | | PST | | results section. | + +--------+ + + + | POC GLUCOSE | Routin | 10/08/2017 | | Results for this | | | e | 4:57 PM | | procedure are in the | | | | PST | | results section. | + +--------+ + + + | POC GLUCOSE | Routin | 10/08/2017 | | Results for this | | | e | 11:15 AM | | procedure are in the | | | | PST | | results section. | + +--------+ + + + | POC GLUCOSE | Routin | 10/08/2017 | | Results for this | | | e | 6:28 AM | | procedure are in the | | | | PST | | results section. | + +--------+ + + + | POC GLUCOSE | Routin | 10/07/2017 | | Results for this | | | e | 8:37 PM | | procedure are in the | | | | PST | | results section. | + +--------+ + + + | POC GLUCOSE | Routin | 10/07/2017 | | Results for this | | | e | 4:27 PM | | procedure are in the | | | | PST | | results section. | + +--------+ + + + | POC GLUCOSE | Routin | 10/07/2017 | | Results for this | | | e | 11:47 AM | | procedure are in the | | | | PST | | results section. | + +--------+ + + + | POC GLUCOSE | Routin | 10/07/2017 | | Results for this | | | e | 7:38 AM | | procedure are in the | | | | PST | | results section. | + +--------+ + + + | CBC WITH | Routin | 10/07/2017 | | Results for this | | DIFFERENTIAL | e | 3:51 AM | | procedure are in the | | | | PST | | results section. | + +--------+ + + + | MAGNESIUM | Routin | 10/07/2017 | | Results for this | | | e | 3:51 AM | | procedure are in the | | | | PST | | results section. | + +--------+ + + + | BASIC METABOLIC | Routin | 10/07/2017 | | Results for this | | PANEL | e | 3:51 AM | | procedure are in the | | | | PST | | results section. | + +--------+ + + + | POC BLOOD GASES | Routin | 10/07/2017 | | Results for this | | | e | 3:38 AM | | procedure are in the | | | | PST | | results section. | + +--------+ + + + | XR CHEST AP PORTABLE | STAT | 10/07/2017 | | Results for this | | | | 3:31 AM | | procedure are in the | | | | PST | | results section. | + +--------+ + + + | POC GLUCOSE | Routin | 10/07/2017 | | Results for this | | | e | 12:50 AM | | procedure are in the | | | | PST | | results section. | + +--------+ + + + | POC GLUCOSE | Routin | 10/06/2017 | | Results for this | | | e | 8:41 PM | | procedure are in the | | | | PST | | results section. | + +--------+ + + + | TROPONIN I | Routin | 10/06/2017 | | Results for this | | | e | 5:52 PM | | procedure are in the | | | | PST | | results section. | + +--------+ + + + | POC GLUCOSE | Routin | 10/06/2017 | | Results for this | | | e | 4:32 PM | | procedure are in the | | | | PST | | results section. | + +--------+ + + + | POC GLUCOSE | Routin | 10/06/2017 | | Results for this | | | e | 11:28 AM | | procedure are in the | | | | PST | | results section. | + +--------+ + + + | POC GLUCOSE | Routin | 10/06/2017 | | Results for this | | | e | 8:32 AM | | procedure are in the | | | | PST | | results section. | + +--------+ + + + | XR CHEST AP PORTABLE | Routin | 10/06/2017 | | Results for this | | | e | 6:09 AM | | procedure are in the | | | | PST | | results section. | + +--------+ + + + | CBC WITH | Routin | 10/06/2017 | | Results for this | | DIFFERENTIAL | e | 3:48 AM | | procedure are in the | | | | PST | | results section. | + +--------+ + + + | MAGNESIUM | Add-On | 10/06/2017 | | Results for this | | | | 3:48 AM | | procedure are in the | | | | PST | | results section. | + +--------+ + + + | BASIC METABOLIC | Routin | 10/06/2017 | | Results for this | | PANEL | e | 3:48 AM | | procedure are in the | | | | PST | | results section. | + +--------+ + + + | POC GLUCOSE | Routin | 10/05/2017 | | Results for this | | | e | 8:38 PM | | procedure are in the | | | | PST | | results section. | + +--------+ + + + | ECG 12 LEAD | STAT | 10/05/2017 | | Results for this | | | | 3:43 PM | | procedure are in the | | | | PST | | results section. | + +--------+ + + + | XR CHEST AP PORTABLE | STAT | 10/05/2017 | | Results for this | | | | 3:23 PM | | procedure are in the | | | | PST | | results section. | + +--------+ + + + | ECG 12 LEAD | Routin | 10/05/2017 | | Results for this | | | e | 3:09 PM | | procedure are in the | | | | PST | | results section. | + +--------+ + + + | POC BLOOD GASES | Routin | 10/05/2017 | | Results for this | | | e | 1:12 PM | | procedure are in the | | | | PST | | results section. | + +--------+ + + + | EGD | Routin | 10/05/2017 | | Results for this | | | e | 10:56 AM | | procedure are in the | | | | PST | | results section. | + +--------+ + + + | XR CHEST AP PORTABLE | Routin | 10/05/2017 | | Results for this | | | e | 5:53 AM | | procedure are in the | | | | PST | | results section. | + +--------+ + + + | OCCULT BLOOD, | Routin | 10/05/2017 | | Results for this | | GASTRIC | e | 5:25 AM | | procedure are in the | | | | PST | | results section. | + +--------+ + + + | PROCALCITONIN, SERUM | Routin | 10/05/2017 | | Results for this | | | e | 4:27 AM | | procedure are in the | | | | PST | | results section. | + +--------+ + + + | CBC WITH | Routin | 10/05/2017 | | Results for this | | DIFFERENTIAL | e | 4:27 AM | | procedure are in the | | | | PST | | results section. | + +--------+ + + + | BASIC METABOLIC | Routin | 10/05/2017 | | Results for this | | PANEL | e | 4:27 AM | | procedure are in the | | | | PST | | results section. | + +--------+ + + + | POC GLUCOSE | Routin | 10/04/2017 | | Results for this | | | e | 9:12 PM | | procedure are in the | | | | PST | | results section. | + +--------+ + + + | XR CHEST AP PORTABLE | Routin | 10/04/2017 | | Results for this | | | e | 7:15 PM | | procedure are in the | | | | PST | | results section. | + +--------+ + + + | POC GLUCOSE | Routin | 10/04/2017 | | Results for this | | | e | 5:16 PM | | procedure are in the | | | | PST | | results section. | + +--------+ + + + | ECG 12 LEAD | Routin | 10/04/2017 | | Results for this | | | e | 5:08 PM | | procedure are in the | | | | PST | | results section. | + +--------+ + + + | EXTRA GREEN TOP TUBE | Routin | 10/04/2017 | | Results for this | | | e | 3:56 PM | | procedure are in the | | | | PST | | results section. | + +--------+ + + + | EXTRA LAVENDER TOP | Routin | 10/04/2017 | | Results for this | | TUBE | e | 2:43 PM | | procedure are in the | | | | PST | | results section. | + +--------+ + + + | TROPONIN I | Routin | 10/04/2017 | | Results for this | | | e | 2:43 PM | | procedure are in the | | | | PST | | results section. | + +--------+ + + + | BLOOD GAS, ARTERIAL | Routin | 10/04/2017 | | Results for this | | | e | 1:33 PM | | procedure are in the | | | | PST | | results section. | + +--------+ + + + | POC GLUCOSE | Routin | 10/04/2017 | | Results for this | | | e | 12:23 PM | | procedure are in the | | | | PST | | results section. | + +--------+ + + + | CBC WITH | Routin | 10/04/2017 | | Results for this | | DIFFERENTIAL | e | 3:45 AM | | procedure are in the | | | | PST | | results section. | + +--------+ + + + | MAGNESIUM | Routin | 10/04/2017 | | Results for this | | | e | 3:43 AM | | procedure are in the | | | | PST | | results section. | + +--------+ + + + | BASIC METABOLIC | Routin | 10/04/2017 | | Results for this | | PANEL | e | 3:43 AM | | procedure are in the | | | | PST | | results section. | + +--------+ + + + | TROPONIN I | Routin | 10/03/2017 | | Results for this | | | e | 11:28 PM | | procedure are in the | | | | PST | | results section. | + +--------+ + + + | POC GLUCOSE | Routin | 10/03/2017 | | Results for this | | | e | 9:46 PM | | procedure are in the | | | | PST | | results section. | + +--------+ + + + | BASIC METABOLIC | Routin | 10/03/2017 | | Results for this | | PANEL | e | 6:51 PM | | procedure are in the | | | | PST | | results section. | + +--------+ + + + | PROCALCITONIN, SERUM | Add-On | 10/03/2017 | | Results for this | | | | 3:45 PM | | procedure are in the | | | | PST | | results section. | + +--------+ + + + | TROPONIN I | Routin | 10/03/2017 | | Results for this | | | e | 3:45 PM | | procedure are in the | | | | PST | | results section. | + +--------+ + + + | CV COR ANGIO | Routin | 10/03/2017 | | Results for this | | | e | 3:18 PM | | procedure are in the | | | | PST | | results section. | + +--------+ + + + | CULTURE, BLOOD | STAT | 10/03/2017 | | Results for this | | | | 1:15 PM | | procedure are in the | | | | PST | | results section. | + +--------+ + + + | ECG 12 LEAD | Routin | 10/03/2017 | | Results for this | | | e | 12:55 PM | | procedure are in the | | | | PST | | results section. | + +--------+ + + + | POC GLUCOSE | Routin | 10/03/2017 | | Results for this | | | e | 12:23 PM | | procedure are in the | | | | PST | | results section. | + +--------+ + + + | XR CHEST AP PORTABLE | Routin | 10/03/2017 | | Results for this | | | e | 12:03 PM | | procedure are in the | | | | PST | | results section. | + +--------+ + + + | CULTURE, BLOOD | STAT | 10/03/2017 | | Results for this | | | | 11:49 AM | | procedure are in the | | | | PST | | results section. | + +--------+ + + + | SLIDE REVIEW, | Routin | 10/03/2017 | | Results for this | | PERIPHERAL SMEAR | e | 11:29 AM | | procedure are in the | | | | PST | | results section. | + +--------+ + + + | TROPONIN I | Routin | 10/03/2017 | | Results for this | | | e | 11:29 AM | | procedure are in the | | | | PST | | results section. | + +--------+ + + + | PROTIME INR | Routin | 10/03/2017 | | Results for this | | | e | 11:29 AM | | procedure are in the | | | | PST | | results section. | + +--------+ + + + | CBC WITH | Routin | 10/03/2017 | | Results for this | | DIFFERENTIAL | e | 11:29 AM | | procedure are in the | | | | PST | | results section. | + +--------+ + + + | B TYPE NATRIURETIC | Routin | 10/03/2017 | | Results for this | | PEPTIDE | e | 11:29 AM | | procedure are in the | | | | PST | | results section. | + +--------+ + + + | LACTIC ACID | Routin | 10/03/2017 | | Results for this | | | e | 11:29 AM | | procedure are in the | | | | PST | | results section. | + +--------+ + + + | HEPATIC FUNCTION | Routin | 10/03/2017 | | Results for this | | PANEL | e | 11:29 AM | | procedure are in the | | | | PST | | results section. | + +--------+ + + + | BASIC METABOLIC | Routin | 10/03/2017 | | Results for this | | PANEL | e | 11:29 AM | | procedure are in the | | | | PST | | results section. | + +--------+ + + + | ECHO COMPLETE | Routin | 10/03/2017 | | Results for this | | | e | 11:18 AM | | procedure are in the | | | | PST | | results section. | + +--------+ + + + | BLOOD GAS, ARTERIAL | Routin | 10/03/2017 | | Results for this | | | e | 10:40 AM | | procedure are in the | | | | PST | | results section. | + +--------+ + + + | CAMPYLOBACTER | Routin | 10/03/2017 | | Results for this | | AG,QUAL | e | 10:39 AM | | procedure are in the | | | | PST | | results section. | + +--------+ + + + | CULTURE, MRSA | Routin | 10/03/2017 | | Results for this | | | e | 10:39 AM | | procedure are in the | | | | PST | | results section. | + +--------+ + + + | CULTURE, STOOL | Routin | 10/03/2017 | | Results for this | | RESULT | e | 10:39 AM | | procedure are in the | | | | PST | | results section. | + +--------+ + + + | INFLUENZA A AND B | Routin | 10/03/2017 | | Results for this | | RNA, NAAT | e | 10:39 AM | | procedure are in the | | | | PST | | results section. | + +--------+ + + + | SHIGATOXIN 1 AND 2 | Routin | 10/03/2017 | | Results for this | | | e | 10:39 AM | | procedure are in the | | | | PST | | results section. | + +--------+ + + + | OVA AND PARASITE | Routin | 10/03/2017 | | Results for this | | EXAMINATION | e | 10:39 AM | | procedure are in the | | | | PST | | results section. | + +--------+ + + + | FECAL LEUKOCYTES | TOM | 10/03/2017 | | Results for this | | | | 10:39 AM | | procedure are in the | | | | PST | | results section. | + +--------+ + + + | CLOSTRIDIUM | Routin | 10/03/2017 | | Results for this | | DIFFICILE A AND B | e | 10:39 AM | | procedure are in the | | EIA | | PST | | results section. | + +--------+ + + + | CULTURE, | STAT | 10/03/2017 | | Results for this | | RESPIRATORY, LOWER, | | 10:39 AM | | procedure are in the | | SMEAR | | PST | | results section. | + +--------+ + + + | CULTURE, STOOL | Routin | 10/03/2017 | | Results for this | | | e | 10:39 AM | | procedure are in the | | | | PST | | results section. | + +--------+ + + + | URINALYSIS WITH | Routin | 10/03/2017 | | Results for this | | MICROSCOPIC WITH | e | 10:38 AM | | procedure are in the | | CULTURE IF INDICATED | | PST | | results section. | + +--------+ + + + | IMAGING REPORT - | | 10/03/2017 | | Results for this | | EXTERNAL SCAN | | 12:00 AM | | procedure are in the | | | | PST | | results section. | + +--------+ + + + | IMAGING REPORT - | | 10/03/2017 | | Results for this | | EXTERNAL SCAN | | 12:00 AM | | procedure are in the | | | | PST | | results section. | + +--------+ + + + | LABS - EXTERNAL SCAN | | 10/03/2017 | | Results for this | | | | 12:00 AM | | procedure are in the | | | | PST | | results section. | + +--------+ + + + | ECG - EXTERNAL SCAN | | 10/03/2017 | | Results for this | | | | 12:00 AM | | procedure are in the | | | | PST | | results section. | + +--------+ + + + documented in this encounter Results POC Glucose (10/10/2017 11:42 AM PST) + +---------+ + + + | Component | Value | Ref Range | Performed | Pathologist | | | | | At | Signature | + +---------+ + + + | Glucose, | 127 (H) | 70 - 109 mg/dL | [facility] | | | [facility] | | | [facility] | | | | | [facility] | | | | | | [facility] - | | | | | | LABORATORY | | + +---------+ + + + + + | Specimen | + + | Blood | + + + + + + + | Performing | Address | City/State/Zipcode | Phone Number | | Organization | | | | + + + + + | [facility] | [address] | [place] | [phone] | | [facility] | | [address] | | | - LABORATORY | | | | + + + + + POC Glucose (10/10/2017 6:36 AM PST) + +-------+ + + + | Component | Value | Ref Range | Performed | Pathologist | | | | | At | Signature | + +-------+ + + + | Glucose, | 108 | 70 - 109 mg/dL | [facility] | | | POC [facility] | | [facility] | | | | | | [facility] | | | | | | [facility] - | | | | | | LABORATORY | | + +-------+ + + + + + | Specimen | + + | Blood | + + + + + + + | Performing | Address | City/State/Zipcode | Phone Number | | Organization | | | | + + + + + | [facility] | [address] | [place] | [phone] | | [facility] | | [address] | | | - LABORATORY | | | | + + + + + POC Glucose (10/09/2017 8:42 PM PST) + +---------+ + + + | Component | Value | Ref Range | Performed | Pathologist | | | | | At | Signature | + +---------+ + + + | Glucose, | 125 (H) | 70 - 109 mg/dL | [facility] | | | POC | | | [facility] | | | | | | [facility] | | | | | | [facility] - | | | | | | LABORATORY | | + +---------+ + + + + + | Specimen | + + | Blood | + + + + + + + | Performing | Address | City/State/Zipcode | Phone Number | | Organization | | | | + + + + + | [facility] | [address] | [place] | [phone] | | [facility] | | [address] | | | - LABORATORY | | | | + + + + + POC Glucose (10/09/2017 4:59 PM PST) + +-------+ + + + | Component | Value | Ref Range | Performed | Pathologist | | | | | At | Signature | + +-------+ + + + | Glucose, | 97 | 70 - 109 mg/dL | [facility] | | | POC | | | [facility] | | | | | | [facility] | | | | | | C[facility] - | | | | | | LABORATORY | | + +-------+ + + + + + | Specimen | + + | Blood | + + + + + + + | Performing | Address | City/State/Zipcode | Phone Number | | Organization | | | | + + + + + | [facility] | [address] | [place] | [phone] | | [facility] | | [address] | | | - LABORATORY | | | | + + + + + POC Glucose (10/09/2017 11:55 AM PST) + +---------+ + + + | Component | Value | Ref Range | Performed | Pathologist | | | | | At | Signature | + +---------+ + + + | Glucose, | 148 (H) | 70 - 109 mg/dL | [facility] | | | POC [facility] | | [facility] | | | | | | [facility] | | | | | | CENTER - | | | | | | LABORATORY | | + +---------+ + + + + + | Specimen | + + | Blood | + + + + + + + | Performing | Address | City/State/Zipcode | Phone Number | | Organization | | | | + + + + + | [facility] | [address] | [place] | [phone] | | [facility] | | [address] | | | - LABORATORY | | | | + + + + + POC Glucose (10/09/2017 6:38 AM PST) + +-------+ + + + | Component | Value | Ref Range | Performed | Pathologist | | | | | At | Signature | + +-------+ + + + | Glucose, | 109 | 70 - 109 mg/dL | [facility] | | | POC | | | [facility] | | | | | | [facility] | | | | | | CENTER - | | | | | | LABORATORY | | + +-------+ + + + + + | Specimen | + + | Blood | + + + + + + + | Performing | Address | City/State/Zipcode | Phone Number | | Organization | | | | + + + + + | [facility] | [address] | [place] | [phone] | | [facility] | | [address] | | | - LABORATORY | | | | + + + + + Extra Lavender Top Tube (10/09/2017 5:05 AM PST) + +-------+ + + + | Component | Value | Ref Range | Performed | Pathologist | | | | | At | Signature | + +-------+ + + + | Extra | Done | | [facility] | | | Lavender | | | [facility] | | | Top Tube | | | MEDICAL | | | | | | CENTER - | | | | | | LABORATORY | | + +-------+ + + + + + | Specimen | + + | Blood | + + + + + + + | Performing | Address | City/State/Zipcode | Phone Number | | Organization | | | | + + + + + | [facility] | [address] | [place] | [phone] | | [facility] | | [address] | | | - LABORATORY | | | | + + + + + Basic Metabolic Panel (10/09/2017 5:05 AM PST) + + + + + + | Component | Value | Ref Range | Performed | Pathologist | | | | | At | Signature | + + + + + + | Na | 136 | 136 - 149 | [facility] | | | | | mmol/L | [facility] | | | | | | MEDICAL | | | | | | CENTER - | | | | | | LABORATORY | | + + + + + + | K | 3.5 | 3.5 - 5.1 | [facility] | | | | | mmol/L | [facility] | | | | | | MED[facility] | | | | | | CENTER - | | | | | | LABORATORY | | + + + + + + | Cl | 105 | 98 - 109 mmol/L | [facility] | | | | | | [facility] | | | | | | [facility] | | | | | | CENTER - | | | | | | LABORATORY | | + + + + + + | CO2 | 24 | 24 - 31 mmol/L | [facility] | | | | | | [facility] | | | | | | [facility] | | | | | | CENTER - | | | | | | LABORATORY | | + + + + + + | Anion Gap | 7 | 3 - 16 mmol/L | [facility] | | | | | | [facility] | | | | | | [facility] | | | | | | CENTER - | | | | | | LABORATORY | | + + + + + + | Glucose | 107 | 70 - 109 mg/dL | [facility] | | | | | | [facility] | | | | | | [facility] | | | | | | CENTER - | | | | | | LABORATORY | | + + + + + + | BUN | 26 (H) | 7 - 18 mg/dL | [facility] | | | | | | [facility] | | | | | | [facility] | | | | | | CENTER - | | | | | | LABORATORY | | + + + + + + | Creatinine | 1.23 | 0.60 - 1.30 | [facility] | | | | | mg/dL | [facility] | | | | | | MEDICAL | | | | | | CENTER - | | | | | | LABORATORY | | + + + + + + | eGFR if not | 60Comment: GLOMERULAR | >=60 | [facility] | | | | FILTRATION | mL/min/1.73m2 | [facility] | | | [place] | RATE,ESTIMATED | | MEDICAL | | | | mL/min/1.73e3Gepr than | | CENTER - | | | | 60 Chronic kidney | | LABORATORY | | | | disease,if found over a | | | | | | 3-month period.Less than | | | | | | 15 Kidney failureFor | | | | | | | | | | | | Americans,multiply the | | | | | | calculated GFR by 1.21. | | | | | | | | | | + + + + + + | Calcium | 8.2 (L) | 8.3 - 10.5 | [facility] | | | | | mg/dL | [facility] | | | | | | MEDICAL | | | | | | CENTER - | | | | | | LABORATORY | | + + + + + + | BUN/Creatin | 21.1 | | [facility] | | | ine Ratio | | | [facility] | | [...] | + + + + + | [facility] | [address] | [place] | [phone] | | [facility] | | [address] | | | - LABORATORY | | | | + + + + + POC Glucose (10/08/2017 9:11 PM PST) + +---------+ + + + | Component | Value | Ref Range | Performed | Pathologist | | | | | At | Signature | + +---------+ + + + | Glucose, | 120 (H) | 70 - 109 mg/dL | [facility] | | | POC | | | [facility] | | | | | | [facility] | | | | | | CENTER - | | | | | | LABORATORY | | + +---------+ + + + + + | Specimen | + + | Blood | + + + + + + + | Performing | Address | City/State/Zipcode | Phone Number | | Organization | | | | + + + + + | [facility] | [address] | [place] | [phone] | | [facility] | | [address] | | | - LABORATORY | | | | + + + + + POC Glucose (10/08/2017 4:57 PM PST) + +-------+ + + + | Component | Value | Ref Range | Performed | Pathologist | | | | | At | Signature | + +-------+ + + + | Glucose, | 96 | 70 - 109 mg/dL | [facility] | | | POC | | | [facility] | | | | | | [facility] | | | | | | CENTER - | | | | | | LABORATORY | | + +-------+ + + + + + | Specimen | + + | Blood | + + + + + + + | Performing | Address | City/State/Zipcode | Phone Number | | Organization | | | | + + + + + | [facility] | [address] | [place] | [phone] | | [facility] | | [address] | | | - LABORATORY | | | | + + + + + POC Glucose (10/08/2017 11:15 AM PST) + +---------+ + + + | Component | Value | Ref Range | Performed | Pathologist | | | | | At | Signature | + +---------+ + + + | Glucose, | 146 (H) | 70 - 109 mg/dL | [facility] | | | POC | | | [facility] | | | | | | [facility] | | | | | | CENTER - | | | | | | LABORATORY | | + +---------+ + + + + + | Specimen | + + | Blood | + + + + + + + | Performing | Address | City/State/Zipcode | Phone Number | | Organization | | | | + + + + + | [facility] | [address] | [place] | [phone] | | [facility] | | [address] | | | - LABORATORY | | | | + + + + + POC Glucose (10/08/2017 6:28 AM PST) + +-------+ + + + | Component | Value | Ref Range | Performed | Pathologist | | | | | At | Signature | + +-------+ + + + | Glucose, | 99 | 70 - 109 mg/dL | [facility] | | | POC | | | [facility] | | | [facility] | | [facility] | | | | | | CENTER - | | | | | | LABORATORY | | + +-------+ + + + + + | Specimen | + + | Blood | + + + + + + + | Performing | Address | City/State/Zipcode | Phone Number | | Organization | | | | + + + + + | [facility] | [address] | [place] | [phone] | | [facility] | | [address] | | | - LABORATORY | | | | + + + + + POC Glucose (10/07/2017 8:37 PM PST) + +---------+ + + + | Component | Value | Ref Range | Performed | Pathologist | | | | | At | Signature | + +---------+ + + + | Glucose, | 115 (H) | 70 - 109 mg/dL | [facility] | | | [facility] | | [facility] | | | | | [facility] | | | | | | [facility] - | | | | | | LABORATORY | | + +---------+ + + + + + | Specimen | + + | Blood | + + + + + + + | Performing | Address | City/State/Zipcode | Phone Number | | Organization | | | | + + + + + | [facility] | [address] | [place] | [phone] | | [facility] | | [address] | | | - LABORATORY | | | | + + + + + POC Glucose (10/07/2017 4:27 PM PST) + +---------+ + + + | Component | Value | Ref Range | Performed | Pathologist | | | | | At | Signature | + +---------+ + + + | Glucose, | 110 (H) | 70 - 109 mg/dL | [facility] | | | POC | | | [facility] | | | | | | [facility] | | | | | | CENTER - | | | | | | LABORATORY | | + +---------+ + + + + + | Specimen | + + | Blood | + + + + + + + | Performing | Address | City/State/Zipcode | Phone Number | | Organization | | | | + + + + + | [facility] | [address] | [place] | [phone] | | [facility] | | [address] | | | - LABORATORY | | | | + + + + + POC Glucose (10/07/2017 11:47 AM PST) + +---------+ + + + | Component | Value | Ref Range | Performed | Pathologist | | | | | At | Signature | + +---------+ + + + | Glucose, | 114 (H) | 70 - 109 mg/dL | [facility] | | | POC | | | [facility] | | | | | | [facility] | | | | | | CENTER - | | | | | | LABORATORY | | + +---------+ + + + + + | Specimen | + + | Blood | + + + + + + + | Performing | Address | City/State/Zipcode | Phone Number | | Organization | | | | + + + + + | [facility] | [address] | [place] | [phone] | | [facility] | | [address] | | | - LABORATORY | | | | + + + + + POC Glucose (10/07/2017 7:38 AM PST) + +-------+ + + + | Component | Value | Ref Range | Performed | Pathologist | | | | | At | Signature | + +-------+ + + + | Glucose, | 104 | 70 - 109 mg/dL | [facility] | | | POC | | | [facility] | | | | | | [facility] | | | | | | CENTER - | | | | | | LABORATORY | | + +-------+ + + + + + | Specimen | + + | Blood | + + + + + + + | Performing | Address | City/State/Zipcode | Phone Number | | Organization | | | | + + + + + | [facility] | [address] | [place] | [phone] | | [facility] | | [address] | | | - LABORATORY | | | | + + + + + Magnesium (10/07/2017 3:51 AM PST) + +-------+ + + + | Component | Value | Ref Range | Performed | Pathologist | | | | | At | Signature | + +-------+ + + + | Magnesium | 1.9 | 1.8 - 2.5 mg/dL | [facility] | | | | | | [facility] | | | | | | [facility] | | | | | | [facility] - | | | | | | LABORATORY | | + +-------+ + + + + + | Specimen | + + | Blood | + + + + + + + | Performing | Address | City/State/Zipcode | Phone Number | | Organization | | | | + + + + + | [facility] | [address] | [place] | [phone] | | [facility] | | [address] | | | - LABORATORY | | | | + + + + + Basic Metabolic Panel (10/07/2017 3:51 AM PST) + + + + + + | Component | Value | Ref Range | Performed | Pathologist | | | | | At | Signature | + + + + + + | Na | 141 | 136 - 149 | [facility] | | | | | mmol/L | [facility] | | | | | | [facility] | | | | | | [facility] - | | | | | | LABORATORY | | + + + + + + | K | 3.7 | 3.5 - 5.1 | [facility] | | | | | mmol/L | [facility] | | | | | | [facility] | | | | | | [facility] - | | | | | | LABORATORY | | + + + + + + | Cl | 109 | 98 - 109 mmol/L | [facility] | | | | | | [facility] | | | | | | [facility] | | | | | | [facility] - | | | | | | LABORATORY | | + + + + + + | CO2 | 20 (L) | 24 - 31 mmol/L | [facility] | | | | | [facility] | | [facility] | [facility] | | | | | | [facility] - | | | | | | LABORATORY | | + + + + + + | Anion Gap | 12 | 3 - 16 mmol/L | [facility] | | [facility] | | [facility] | | | | | | [facility] | | | | | | [facility] - | | | | | | LABORATORY | | + + + + + + | Glucose | 198 (H) | 70 - 109 mg/dL | [facility] | | | | | | [facility] | | | | | | [facility] | | | | | | [facility] - | | | | | | LABORATORY | | + + + + + + | BUN | 23 (H) | 7 - 18 mg/dL | [facility] | | | [facility] | | [facility] | | | | | | [facility] | | | | | | [facility] - | | | | | | LABORATORY | | + + + + + + | Creatinine | 1.29 | 0.60 - 1.30 | [facility] | | | | | mg/dL | [facility] | | | | | | [facility] | | | | | | CENTER - | | | | | | LABORATORY | | + + + + + + | eGFR if not | 56 (L)Comment: | >=60 | [facility] | | | | GLOMERULAR FILTRATION | mL/min/1.73m2 | [facility] | | | [facility] | RATE,ESTIMATED | | MEDICAL | | | | mL/min/[id number] than | | CENTER - | | | | 60 Chronic kidney | | LABORATORY | | | | disease,if found over a | | | | | | 3-month period.Less than | | | | | | 15 Kidney failureFor | | | | | | | | | | | | Americans,multiply the | | | | | | calculated GFR by 1.21. | | | | | | | | | | + + + + + + | Calcium | 8.0 (L) | 8.3 - 10.5 | [facility] | | | | | mg/dL | [facility] | | | | | | MEDICAL | | | | | | CENTER - | | | | | | LABORATORY | | + + + + + + | BUN/Creatin | 17.8 | | [facility] | | | ine Ratio | | | [facility] | | | | | | MEDICAL [...] | + + + + + | [facility] | [address] | [place] | [phone] | | [facility] | | [address] | | | - LABORATORY | | | | + + + + + CBC with Differential (10/07/2017 3:51 AM PST) + + + + + + | Component | Value | Ref Range | Performed | Pathologist | | | | | At | Signature | + + + + + + | WBC | 10.9 | 4.0 - 11.0 K/uL | [facility] | | | | | | [facility] | | | | | | MEDICAL | | | | | | CENTER - | | | | | | LABORATORY | | + + + + + + | RBC | 4.81 | 4.30 - 5.70 | [facility] | | | | | M/uL | [facility] | | | | | | MEDICAL | | | | | | CENTER - | | | | | | LABORATORY | | + + + + + + | Hemoglobin | 14.3 | 13.5 - 18.0 | [facility] | | | | | g/dL | [facility] | | | | | | MEDICAL | | | | | | CENTER - | | | | | | LABORATORY | | + + + + + + | Hematocrit | 43.3 | 40.0 - 51.0 % | [facility] | | | | | | [facility] | | | | | | MEDICAL | | | | | | CENTER - | | | | | | LABORATORY | | + + + + + + | MCV | 89.9 | 83.0 - 101.0 fL | [facility] | | | | | | [facility] | | | | | | [facility] | | | | | | CENTER - | | | | | | LABORATORY | | + + + + + + | MCH | 29.7 | 28.0 - 35.0 pg | [facility] | | | | | | [facility] | | | | | | MEDICAL | | | | | | CENTER - | | | | | | LABORATORY | | + + + + + + | MCHC | 33.0 | 32.0 - 36.0 | [facility] | | | | | g/dL | [facility] | | | | | | MEDICAL | | | | | | CENTER - | | | | | | LABORATORY | | + + + + + + | RDW-CV | 15.3 (H) | <15.0 % | [facility] | | | | | | [facility] | | | | | | MEDICAL | | | | | | CENTER - | | | | | | LABORATORY | | + + + + + + | Platelet | 178 | 140 - 440 K/uL | [facility] | | | Count | | | [facility] | | | | | | MEDICAL | | | | | | CENTER - | | | | | | LABORATORY | | + + + + + + | MPV | 8.5 | fL | [facility] | | | | | | [facility] | | | | | | MEDICAL | | | | | | CENTER - | | | | | | LABORATORY | | + + + + + + | % | 80.5 | 45.0 - 82.0 % | [facility] | | | Neutrophils | | | [facility] | | | | | | MEDICAL | | | | | | CENTER - | | | | | | LABORATORY | | + + + + + + | % | 10.6 (L) | 20.0 - 45.0 % | [facility] | | | Lymphocytes | | | [facility] | | | | | | MEDICAL | | | | | | CENTER - | | | | | | LABORATORY | | + + + + + + | % Monocytes | 7.1 | 4.0 - 12.0 % | [facility] | | | | | | [facility] | | | | | | MEDICAL | | | | | | CENTER - | | | | | | LABORATORY | | + + + + + + | % | 1.5 | 0.0 - 5.0 % | [facility] | | | Eosinophils | | | [facility] | | | | | | MEDICAL | | | | | | CENTER - | | | | | | LABORATORY | | + + + + + + | % Basophils | 0.3 | 0.0 - 1.0 % | [facility] | | | | | | [facility] | | | | | | MEDICAL | | | | | | CENTER - | | | | | | LABORATORY | | + + + + + + | Absolute | 8.80 (H) | 1.80 - 8.50 | [facility] | | | Neutrophils | | K/uL | [facility] | | | | | | MEDICAL | | | | | | CENTER - | | | | | | LABORATORY | | + + + + + + | Absolute | 1.20 | 0.60 - 3.20 | [facility] | | | Lymphocytes | | K/uL | [facility] | | | | | | MEDICAL | | | | | | CENTER - | | | | | | LABORATORY | | + + + + + + | Absolute | 0.80 | 0.00 - 1.00 | [facility] | | | Monocytes | | K/uL | [facility] | | | | | | MEDICAL | | | | | | CENTER - | | | | | | LABORATORY | | + + + + + + | Absolute | 0.20 | 0.00 - 0.40 | [facility] | | | Eosinophils | | K/uL | [facility] | | | | | | MEDICAL | | | | | | CENTER - | | | | | | LABORATORY | | + + + + + + | Absolute | 0.00 | 0.00 - 0.10 | [facility] | | | Basophils | | K/uL | [facility] | | | | | | [facility] [...] [facility] | [address] | [place], [place] | [phone] | | [facility] | | [address] | | | - LABORATORY | | | | + + + + + POC Blood Gases (10/07/2017 3:38 AM PST) + + + + + + | Component | Value | Ref Range | Performed | Pathologist | | | | | At | Signature | + + + + + + | Specimen | Artery | | [facility] | | | Source | | | [facility] | | | | | | MEDICAL | | | | | | CENTER - | | | | | | LABORATORY | | + + + + + + | pH, POC | 7.398 | 7.3 - 7.45 | [facility] | | | | | | [facility] | | | | | | MEDICAL | | | | | | CENTER - | | | | | | LABORATORY | | + + + + + + | HCO3, POC | 19.3 (L) | 21.0 - 28.0 | [facility] | | | | | mmol/L | [facility] | | | | | | MEDICAL | | | | | | CENTER - | | | | | | LABORATORY | | + + + + + + | TCO2, POC | 20.3 (L) | 22.0 - 29.0 | [facility] | | | | | mmol/L | [facility] | | | | | | MEDICAL | | | | | | CENTER - | | | | | | LABORATORY | | + + + + + + | Base | -4.2 (L) | -2.0 - 3.0 | [facility] | | | Excess, POC | | mmol/L | [facility] | | | | | | MEDICAL | | | | | | CENTER - | | | | | | LABORATORY | | + + + + + + | Base | -5.5 (L) | -2.0 - 3.0 | [facility] | | | Excess, | | mmol/L | [facility] | | | Extracellul | | | MEDICAL | | | ar fluid, | | | CENTER - | | | POC | | | LABORATORY | | + + + + + + | O2 Sat, POC | 96 | 90 - 100 % | [facility] | | | | | | [facility] | | | | | | MEDICAL | | | | | | CENTER - | | | | | | LABORATORY | | + + + + + + | PCO2, POC | 31.3 (L) | 35.0 - 50.0 | [facility] | | | | | mmHg | [facility] | | | | | | MEDICAL | | | | | | CENTER - | | | | | | LABORATORY | | + + + + + + | pO2, POC | 78.4 (H) | 25.0 - 50.0 | [facility] | | | | | mmHg | [facility] | | | | | | MEDICAL [...] | + + + + + | [facility] | [address] | [place] | [phone] | | [facility] | | [address] | | | - LABORATORY | | | | + + + + + XR Chest AP Portable (10/07/2017 3:31 AM PST) + + | Specimen | + + | | + + + + + | Narrative | Performed At | + + + | EXAM: XR CHEST AP PORTABLE dated 10/07/2017 3:31 AM HISTORY: | [facility] | | hypoxia Comparison: October 06 and October 05, 2017 TECHNIQUE: | | | A single portable view of the chest. FINDINGS: The lungs are | | | symmetrically aerated. Interval progression of interstitial and | | | airspace opacities. Air bronchograms in the left lower lung. These | | | are symmetric in the left lung but diffusely throughout both lungs. | | | No large pleural effusion. No pneumothorax. The cardiac and | | | mediastinal contours are not enlarged. No visible acute osseous | | | abnormalities. IMPRESSION - Progressive interstitial and | | | airspace opacities. These could be due to cardiogenic or | | | noncardiogenic pulmonary edema. These could be due to atypical | | | pneumonia. The findings could be related to a combined pathology. | | | Dictated and Signed by: Terry Swift MD Electronically | | | signed: 10/07/2017 9:11 AM | | + + + + + | Procedure Note | + + | Sebastian, Rad Results In - 10/07/2017 9:15 AM PST EXAM: XR CHEST AP PORTABLE dated | | 10/07/2017 3:31 AMHISTORY: hypoxiaComparison: October 06 and October 05, 2017TECHNIQUE: A | | single portable view of the chest.FINDINGS:The lungs are symmetrically aerated. | | Interval progression of interstitial andairspace opacities. Air bronchograms in the | | left lower lung. These aresymmetric in the left lung but diffusely throughout both | | lungs. No largepleural effusion. No pneumothorax. The cardiac and mediastinal | | contours arenot enlarged. No visible acute osseous abnormalities.IMPRESSION | | -Progressive interstitial and airspace opacities. These could be due tocardiogenic or | | noncardiogenic pulmonary edema. These could be due to atypicalpneumonia. The findings | | could be related to a combined pathology.Dictated and Signed by: Terry Swift MD | | Electronically signed: 10/07/2017 9:11 AM | |airspace opacities. Air [...] 10/07/2017 9:11 AM | + + + +---------+ + + | Performing | Address | City/State/Zipcode | Phone Number | | Organization | | | | + +---------+ + + | [facility] | | | | + +---------+ + + POC Glucose (10/07/2017 12:50 AM PST) + +-------+ + + + | Component | Value | Ref Range | Performed | Pathologist | | | | | At | Signature | + +-------+ + + + | Glucose, | 105 | 70 - 109 mg/dL | [facility] | | | POC | | | [facility] | | | | | | MEDICAL | | | | | | CENTER - | | | | | | LABORATORY | | + +-------+ + + + + + | Specimen | + + | Blood | + + + + + + + | Performing | Address | City/State/Zipcode | Phone Number | | Organization | | | | + + + + + | [facility] | [address] | [place] | [phone] | | [facility] | | [address] | | | - LABORATORY | | | | + + + + + POC Glucose (10/06/2017 8:41 PM PST) + +-------+ + + + | Component | Value | Ref Range | Performed | Pathologist | | | | | At | Signature | + +-------+ + + + | Glucose, | 101 | 70 - 109 mg/dL | [facility] | | | POC | | | [facility] | | | | | | MEDICAL | | | | | | CENTER - | | | | | | LABORATORY | | + +-------+ + + + + + | Specimen | + + | Blood | + + + + + + + | Performing | Address | City/State/Zipcode | Phone Number | | Organization | | | | + + + + + | [facility] | [address] | [place] | [phone] | | [facility] | | [address] | | | - LABORATORY | | | | + + + + + Troponin I (10/06/2017 5:52 PM PST) + + + + + + | Component | Value | Ref Range | Performed | Pathologist | | | | | At | Signature | + + + + + + | Troponin I | 5.64 ()Comment: | <0.06 ng/mL | [facility] | | | | Reference | | [facility] | | | | Ranges:0.00-0.06 = | | MEDICAL | | | | NORMAL>0.06 = | | CENTER - | | | | SUSPICIOUS FOR | | LABORATORY | | | | MYOCARDIAL DAMAGE NOTE: | | | | | | Values greater than 0.50 | | | | | | ng/mL have been shown | | | | | | to be strongly | | | | | | associated with acute | | | | | | myocardial infarction. | | | | | | Critical Result called | | | | | | to and read back by | | | | | | Giulia Rain RN on | | | | | | 10/06/2017 at 18:35 by | | | | | | Bhargavi Alan. The | | | | | | [employer] | | | | | | Cardiology (ACC) | | | | | | recommends a decision | | | | | | limit of 0.06 ng/mL for | | | | | | this assay. Results | | | | | | greater than 0.06 can | | | | | | reflect a pre-infarct | | | | | | acute coronary syndrome, | | | | | | but can also reflect | | | | | | myocardial necrosis or | | | | | | injury that is not due | | | | | | to coronary artery | | | | | | disease. Some of these | | | | | | causes are sepsis, | | | | | | hypocolemia, atrial | | | | | | fibrillation, heart | | | | | | failure, pulmonary | | | | | | embolism, myocarditis, | | | | | | myocardial contusion, | | | | | | and renal failure. The | | | | | | diagnosis of myocardial | | | | | | infarction should be | | | | | | based on a combination | | | | | | of the patient's | | | | | | clinical presentation | | | | | | and the clinical | | | | | | laboratory test results | | | | | | (especially serial | | | | | | troponin levels). | | | | + + + + + + + + | Specimen | + + | Blood | + + + + + + + | Performing | Address | City/State/Zipcode | Phone Number | | Organization | | | | + + + + + | [facility] | [address] | [place], [place] | [phone] | | [facility] | | [address] | | | - LABORATORY | | | | + + + + + POC Glucose (10/06/2017 4:32 PM PST) + +---------+ + + + | Component | Value | Ref Range | Performed | Pathologist | | | | | At | Signature | + +---------+ + + + | Glucose, | 130 (H) | 70 - 109 mg/dL | [facility] | | | POC | | | [facility] | | | | | | MEDICAL | | | | | | CENTER - | | | | | | LABORATORY | | + +---------+ + + + + + | Specimen | + + | Blood | + + + + + + + | Performing | Address | City/State/Zipcode | Phone Number | | Organization | | | | + + + + + | [facility] | [address] | [place] | [phone] | | [facility] | | [address] | | | - LABORATORY | | | | + + + + + POC Glucose (10/06/2017 11:28 AM PST) + +---------+ + + + | Component | Value | Ref Range | Performed | Pathologist | | | | | At | Signature | + +---------+ + + + | Glucose, | 120 (H) | 70 - 109 mg/dL | [facility] | | | POC | | | [facility] | | | | | | MEDICAL | | | | | | CENTER - | | | | | | LABORATORY | | + +---------+ + + + + + | Specimen | + + | Blood | + + + + + + + | Performing | Address | City/State/Zipcode | Phone Number | | Organization | | | | + + + + + | [facility] | [address] | [place] | [phone] | | [facility] | | [address] | | | - LABORATORY | | | | + + + + + POC Glucose (10/06/2017 8:32 AM PST) + +---------+ + + + | Component | Value | Ref Range | Performed | Pathologist | | | | | At | Signature | + +---------+ + + + | Glucose, | 110 (H) | 70 - 109 mg/dL | [facility] | | | POC | | | [facility] | | | | | | MEDICAL | | | | | | CENTER - | | | | | | LABORATORY | | + +---------+ + + + + + | Specimen | + + | Blood | + + + + + + + | Performing | Address | City/State/Zipcode | Phone Number | | Organization | | | | + + + + + | [facility] | [address] | [place] | [phone] | | [facility] | | [address] | | | - LABORATORY | | | | + + + + + XR Chest AP Portable (10/06/2017 6:09 AM PST) + + | Specimen | + + | | + + + + + | Narrative | Performed At | + + + | EXAM: XR CHEST AP PORTABLE dated 10/06/2017 6:09 AM HISTORY: | [facility] | | pneumonia Comparison: Chest x-rays dating to October 03, 1999 | | | TECHNIQUE: A single portable view of the chest. FINDINGS: | | | Interval decrease in interstitial and airspace opacities bilaterally. | | | These are not resolved. No pneumothorax. No large pleural | | | effusion. Stable mild cardiomegaly. IMPRESSION - Interval | | | decrease in interstitial and airspace opacities bilaterally. | | | Dictated and Signed by: Terry Swift MD Electronically signed: | | | 10/06/2017 8:34 AM | | + + + + + | Procedure Note | + + | Sebastian, Rad Results In - 10/06/2017 8:37 AM PST EXAM: XR CHEST AP PORTABLE dated | | 10/06/2017 6:09 AMHISTORY: pneumoniaComparison: Chest x-rays dating to October 03 | | 1999TECHNIQUE: A single portable view of the chest.FINDINGS:Interval decrease in | | interstitial and airspace opacities bilaterally. These arenot resolved. No | | pneumothorax. No large pleural effusion. Stable mildcardiomegaly. IMPRESSION -Interval | | decrease in interstitial and airspace opacities bilaterally.Dictated and Signed by: | | Terry Swift MD Electronically signed: 10/06/2017 8:34 AM | | [...] 10/06/2017 8:34 AM | + + + +---------+ + + | Performing | Address | City/State/Zipcode | Phone Number | | Organization | | | | + +---------+ + + | [facility] | | | | + +---------+ + + Magnesium (10/06/2017 3:48 AM PST) + +-------+ + + + | Component | Value | Ref Range | Performed | Pathologist | | | | | At | Signature | + +-------+ + + + | Magnesium | 1.9 | 1.8 - 2.5 mg/dL | [facility] | | | | | | [facility] | | | | | | MEDICAL | | | | | | CENTER - | | | | | | LABORATORY | | + +-------+ + + + + + | Specimen | + + | Blood | + + + + + + + | Performing | Address | City/State/Zipcode | Phone Number | | Organization | | | | + + + + + | [facility] | [address] | [place], [place] | [phone] | | [facility] | | [address] | | | - LABORATORY | | | | + + + + + Basic Metabolic Panel (10/06/2017 3:48 AM PST) + + + + + + | Component | Value | Ref Range | Performed | Pathologist | | | | | At | Signature | + + + + + + | Na | 144 | 136 - 149 | [facility] | | | | | mmol/L | [facility] | | | | | | MEDICAL | | | | | | CENTER - | | | | | | LABORATORY | | + + + + + + | K | 3.1 (L) | 3.5 - 5.1 | [facility] | | | | | mmol/L | [facility] | | | | | | MEDICAL | | | | | | CENTER - | | | | | | LABORATORY | | + + + + + + | Cl | 108 | 98 - 109 mmol/L | [facility] | | | | | | [facility] | | [facility] | | | MEDICAL | | | | | | CENTER - | | | | | | LABORATORY | | + + + + + + | CO2 | 26 | 24 - 31 mmol/L | [facility] | | | | | | [facility] | | | | | | MEDICAL | | | | | | CENTER - | | | | | | LABORATORY | | + + + + + + | Anion Gap | 10 | 3 - 16 mmol/L | [facility] | | | | | | [facility] | | | | | | MEDICAL | | | | | | CENTER - | | | | | | LABORATORY | | + + + + + + | Glucose | 136 (H) | 70 - 109 mg/dL | [facility] | | | | | | [facility] | | | | | | MEDICAL | | | | | | CENTER - | | | | | | LABORATORY | | + + + + + + | BUN | 18 | 7 - 18 mg/dL | [facility] | | | | | | [facility] | | | | | | MEDICAL | | | | | | CENTER - | | | | | | LABORATORY | | + + + + + + | Creatinine | 1.30 | 0.60 - 1.30 | [facility] | | | | | mg/dL | [facility] | | | | | | MED[facility] | | | | | | CENTER - | | | | | | LABORATORY | | + + + + + + | eGFR if not | 56 (L)Comment: | >=60 | [facility] | | | | GLOMERULAR FILTRATION | mL/min/1.73m2 | [facility] | | | [place] | RATE,ESTIMATED | | MEDICAL | | | | mL/min/1.52a7Llgd than | | CENTER - | | | | 60 Chronic kidney | | LABORATORY | | | | disease,if found over a | | | | | | 3-month period.Less than | | | | | | 15 Kidney failureFor | | | | | | | | | | | | Americans,multiply the | | | | | | calculated GFR by 1.21. | | | | | | | | | | + + + + + + | Calcium | 8.3 | 8.3 - 10.5 | [facility] | | | | | mg/dL | [facility] | | | | | | MEDICAL | | | | | | CENTER - | | | | | | LABORATORY | | + + + + + + | BUN/Creatin | 13.8 | | [facility] | | | ine Ratio | | | [facility] | | | | | | MEDICAL [...] + + + + + | [facility] | [address] | [place] | [phone] | | [facility] | | [address] | | | - LABORATORY | | | | + + + + + CBC with Differential (10/06/2017 3:48 AM PST) + + + + + + | Component | Value | Ref Range | Performed | Pathologist | | | | | At | Signature | + + + + + + | WBC | 10.4 | 4.0 - 11.0 K/uL | [facility] | | | | | | [facility] | | | | | | MEDICAL | | | | | | CENTER - | | | | | | LABORATORY | | + + + + + + | RBC | 4.62 | 4.30 - 5.70 | [facility] | | | | | M/uL | [facility] | | | | | | MEDICAL | | | | | | CENTER - | | | | | | LABORATORY | | + + + + + + | Hemoglobin | 13.7 | 13.5 - 18.0 | [facility] | | | | | g/dL | [facility] | | | | | | MEDICAL | | | | | | CENTER - | | | | | | LABORATORY | | + + + + + + | Hematocrit | 41.4 | 40.0 - 51.0 % | [facility] | | | | | | [facility] | | | | | | MEDICAL | | | | | | CENTER - | | | | | | LABORATORY | | + + + + + + | MCV | 89.6 | 83.0 - 101.0 fL | [facility] | | | | | | [facility] | | | | | | MEDICAL | | | | | | CENTER - | | | | | | LABORATORY | | + + + + + + | MCH | 29.7 | 28.0 - 35.0 pg | [facility] | | | | | | [facility] | | | | | | MEDICAL | | | | | | CENTER - | | | | | | LABORATORY | | + + + + + + | MCHC | 33.1 | 32.0 - 36.0 | [facility] | | | | | g/dL | [facility] | | | | | | MEDICAL | | | | | | CENTER - | | | | | | LABORATORY | | + + + + + + | RDW-CV | 15.0 (H) | <15.0 % | [facility] | | | | | | [facility] | | | | | | MEDICAL | | | | | | CENTER - | | | | | | LABORATORY | | + + + + + + | Platelet | 137 (L) | 140 - 440 K/uL | [facility] | | | Count | | | [facility] | | | | | | MEDICAL | | | | | | CENTER - | | | | | | LABORATORY | | + + + + + + | MPV | 8.2 | fL | [facility] | | | | | | [facility] | | | | | | MEDICAL | | | | | | CENTER - | | | | | | LABORATORY | | + + + + + + | % | 78.3 | 45.0 - 82.0 % | [facility] | | | Neutrophils | | | [facility] | | | | | | MEDICAL | | | | | | CENTER - | | | | | | LABORATORY | | + + + + + + | % | 11.8 (L) | 20.0 - 45.0 % | [facility] | | | Lymphocytes | | | [facility] | | | | | | MEDICAL | | | | | | CENTER - | | | | | | LABORATORY | | + + + + + + | % Monocytes | 9.2 | 4.0 - 12.0 % | [facility] | | | | | | [facility] | | | | | | MEDICAL | | | | | | CENTER - | | | | | | LABORATORY | | + + + + + + | % | 0.2 | 0.0 - 5.0 % | [facility] | | | Eosinophils | | | [facility] | | | | | | MEDICAL | | | | | | CENTER - | | | | | | LABORATORY | | + + + + + + | % Basophils | 0.5 | 0.0 - 1.0 % | [facility] | | | | | | [facility] | | | | | | MEDICAL | | | | | | CENTER - | | | | | | LABORATORY | | + + + + + + | Absolute | 8.10 | 1.80 - 8.50 | [facility] | | | Neutrophils | | K/uL | [facility] | | | | | | MEDICAL | | | | | | CENTER - | | | | | | LABORATORY | | + + + + + + | Absolute | 1.20 | 0.60 - 3.20 | [facility] | | | Lymphocytes | | K/uL | [facility] | | | | | | MEDICAL | | | | | | CENTER - | | | | | | LABORATORY | | + + + + + + | Absolute | 1.00 | 0.00 - 1.00 | [facility] | | | Monocytes | | K/uL | [facility] | | | | | | MEDICAL | | | | | | CENTER - | | | | | | LABORATORY | | + + + + + + | Absolute | 0.00 | 0.00 - 0.40 | [facility] | | | Eosinophils | | K/uL | [facility] | | | | | | MEDICAL | | | | | | CENTER - | | | | | | LABORATORY | | + + + + + + | Absolute | 0.10 | 0.00 - 0.10 | [facility] | | | Basophils | | K/uL | [facility] | | | | | | MEDICAL [...] [facility] | [address] | [place] | [phone] | | [facility] | | [address] | | | - LABORATORY | | | | + + + + + POC Glucose (10/05/2017 8:38 PM PST) + +---------+ + + + | Component | Value | Ref Range | Performed | Pathologist | | | | | At | Signature | + +---------+ + + + | Glucose, | 126 (H) | 70 - 109 mg/dL | [facility] | | | POC | | | [facility] | | | | | [facility] | | | [facility] - | | | | | | LABORATORY | | + +---------+ + + + + + | Specimen | + + | Blood | + + + + + + + | Performing | Address | City/State/Zipcode | Phone Number | | Organization | | | | + + + + + | [facility] | [address] | [place] | [phone] | | [facility] | | [address] | | | - LABORATORY | | | | + + + + + ECG 12 lead (10/05/2017 3:43 PM PST) + + + + + + | Component | Value | Ref Range | Performed | Pathologist | | | | | At | Signature | + + + + + + | VENTRICULAR | 150 | BPM | [facility] | | | RATE EKG | | | | | + + + + + + | ATRIAL RATE | 150 | BPM | [facility] | | + + + + + + | P-R | 112 | ms | [facility] | | | INTERVAL | | | | | + + + + + + | QRS | 128 | ms | [facility] | | | DURATION | | | | | + + + + + + | Q-T | 314 | ms | [facility] | | | INTERVAL | | | | | + + + + + + | Q-T | 496 | ms | [facility] | | | INTERVAL | | | | | | (CORRECTED) | | | | | + + + + + + | QRS AXIS | -27 | degrees | [facility] | | + + + + + + | T AXIS | 95 | degrees | [facility] | | + + + + + + | INTERPRETAT | Possible Sinus | | [facility] | | | ION TEXT | tachycardia though | | | | | | atrial flutter with 2:1 | | | | | | should be strongly | | | | | | considered with rate of | | | | | | 150 bpmNonspecific | | | | | | intraventricular | | | | | | blockCannot rule out | | | | | | Anterior infarct (cited | | | | | | on or before | | | | | | 05-OCT-2017)ST and T | | | | | | wave abnormalities may | | | | | | be secondary to rate | | | | | | and/or ischemiaAbnormal | | | | | | ECGWhen compared with | | | | | | ECG of 05-OCT-2017 | | | | | | 15:09, | | | | | | (Unconfirmed)Possible | | | | | | Atrial flutter is now | | | | | | present Confirmed by | | | | | | ZOHRA BREWER, FLORY ([id number]) | | | | | | on 10/06/2017 7:17:27 AM | | | | + + + [...] | | | + +---------+ + + XR Chest AP Portable (10/05/2017 3:23 PM PST) + + | Specimen | + + | | + + + + + | Narrative | Performed At | + + + | SINGLE AP CHEST 10/05/2017 3:23 PM CLINICAL HISTORY: increased o2 | [facility] | | demand COMPARISON: Radiography from earlier in the day and more | | | remote exams FINDINGS: The endotracheal and esophagogastric tubes | | | have been removed. Cardiomediastinal silhouette is unremarkable. | | | There is new patchy reticular opacity in the left mid-upper lung | | | and right mid lung, with increased patchy opacity at the right base. | | | Left basilar aeration is somewhat improved although patchy opacity | | | is visible in this region as well. No pneumothorax or pleural | | | effusion is evident. Bones and soft tissues are unremarkable. | | | IMPRESSION - 1. NEW PATCHY RETICULAR OPACITY INVOLVING PORTIONS | | | OF BOTH LUNGS FOLLOWING EXTUBATION. THIS COULD REFLECT PULMONARY | | | EDEMA OR MASSIVE ASPIRATION. Dictated and Signed by: Jai De La Rosa | | | Electronically signed: 10/05/2017 8:46 PM | | + + + + + | Procedure Note | + + | Sebastian, Rad Results In - 10/05/2017 8:49 PM PST SINGLE AP CHEST 10/05/2017 3:23 PM [...] 10/05/2017 8:46 PM | + + + +---------+ + + | Performing | Address | City/State/Zipcode | Phone Number | | Organization | | | | + +---------+ + + | [facility] | | | | + +---------+ + + ECG 12 lead (10/05/2017 3:09 PM PST) + + + + + + | Component | Value | Ref Range | Performed | Pathologist | | | | | At | Signature | + + + + + + | VENTRICULAR | 143 | BPM | [facility] | | | RATE EKG | | | | | + + + + + + | ATRIAL RATE | 143 | BPM | [facility] | | + + + + + + | P-R | 130 | ms | [facility] | | | INTERVAL | | | | | + + + + + + | QRS | 128 | ms | [facility] | | | DURATION | | | | | + + + + + + | Q-T | 278 | ms | [facility] | | | INTERVAL | | | | | + + + + + + | Q-T | 429 | ms | [facility] | | | INTERVAL | | | | | | (CORRECTED) | | | | | + + + + + + | P WAVE AXIS | 65 | degrees | [facility] | | + + + + + + | QRS AXIS | -30 | degrees | [facility] | | + + + + + + | T AXIS | 105 | degrees | [facility] | | + + + + + + | INTERPRETAT | Sinus tachycardia | | [facility] | | | ION TEXT | withLeft axis | | | | | | deviationNonspecific | | | | | | intraventricular | | | | | | blockCannot rule out | | | | | | Anterior infarct (cited | | | | | | on or before | | | | | | 05-OCT-2017)ST & T wave | | | | | | abnormality, consider | | | | | | lateral ischemiaST | | | | | | depression in inferior | | | | | | leads:consider | | | | | | ischemiaAbnormal ECGWhen | | | | | | compared with ECG of | | | | | | 05-OCT-2017 15:09, | | | | | | (Unconfirmed)Significant | | | | | | changes have | | | | | | occurredConfirmed by | | | | | | FLORY العلي MD ([id number]) | | | | | | on 10/07/2017 7:10:25 AM | | | | + + + [...] | | | + +---------+ + + POC Blood Gases (10/05/2017 1:12 PM PST) + + + + + + | Component | Value | Ref Range | Performed | Pathologist | | | | | At | Signature | + + + + + + | Specimen | Artery | | [facility] | | | Source | | | [facility] | | | | | | [facility] | | | | | | CENTER - | | | | | | LABORATORY | | + + + + + + | pH, POC | 7.498 (H) | 7.3 - 7.45 | [facility] | | | | | | [facility] | | | | | | [facility] | | | | | | CENTER - | | | | | | LABORATORY | | + + + + + + | HCO3, POC | 24.4 | 21.0 - 28.0 | [facility] | | | | | mmol/L | [facility] | | | | | | MEDICAL | | | | | | CENTER - | | | | | | LABORATORY | | + + + + + + | TCO2, POC | 25.4 | 22.0 - 29.0 | [facility] | | | | | mmol/L | [facility] | | | | | | MEDICAL | | | | | | CENTER - | | | | | | LABORATORY | | + + + + + + | Base | 1.8 | -2.0 - 3.0 | [facility] | | | Excess, POC | | mmol/L | [facility] | | | | | | MEDICAL | | | | | | CENTER - | | | | | | LABORATORY | | + + + + + + | Base | 1.2 | -2.0 - 3.0 | [facility] | | | Excess, | | mmol/L | [facility] | | | Extracellul | | | MEDICAL | | | ar fluid, | | | CENTER - | | | POC | | | LABORATORY | | + + + + + + | O2 Sat, POC | 98 | 90 - 100 % | [facility] | | | | | | [facility] | | | | | | MEDICAL | | | | | | CENTER - | | | | | | LABORATORY | | + + + + + + | PCO2, POC | 31.5 (L) | 35.0 - 50.0 | [facility] | | | | | mmHg | [facility] | | | | | | MEDICAL | | | | | | CENTER - | | | | | | LABORATORY | | + + + + + + | pO2, POC | 94.0 (H) | 25.0 - 50.0 | [facility] | | | | | mmHg | [facility] | | | | [...] | + + + + + | [facility] | [address] | [place], [place] | [phone] | | [facility] | | [address] | | | - LABORATORY | | | | + + + + + EGD (10/05/2017 10:56 AM PST) + + | Specimen | + + | | + + + + -+ | Narrative | Performed At | + + -+ | | [facility] | | GastroenterologyPatient Name: Ron HoodProcedloree Date: | [facility] | | 10/05/2017 10:56 AMMRN: [id number] #: [id number] of : | | | 5Admit Type: InpatientAge: 61Room: [facility] 01Gender: MaleNote | | | Status: FinalizedAttending MD: Terry Weir , [facility]rocedure: | | | Upper GI endoscopyIndications: Suspected upper | | | gastrointestinal bleedingProviders: Terry Weir MD, | | | Gil Tam RN, Elizabeth Patel | | | ALFONSO Rivers, Siddharth Bradley CMA, [place] Jc, | | | Records Specialist, Yong Napier MD (Anesthesia | | | Staff)Medicines: Propofol per AnesthesiaComplications: | | | No immediate complications. Estimated blood loss: None.Procedure: | | | Pre-Anesthesia Assessment: - Prior to the procedure, a | | | History and Physical was performed, and patient medications, | | | allergies and sensitivities were reviewed. The patient's | | | tolerance of previous anesthesia was reviewed. - Prior to the | | | procedure, a History and Physical was performed, and patient | | | medications and allergies were reviewed. The patient is unable | | | to give consent secondary to the patient being legally incompetent to | | | consent. The risks and benefits of the procedure and the | | | sedation options and risks were discussed with the patient's | | | spouse. All questions were answered and informed consent was | | | obtained. Patient identification and proposed procedure were | | | verified by the physician, the nurse, the anesthesiologist and | | | the civil drafting technician in the procedure room. Mental Status | | | Examination: sedated. Airway Examination: small/crowded | | | oropharyngeal airway and Mallampati Class III (part of the | | | uvula and soft palate visualized). Prophylactic Antibiotics: The | | | patient does not require prophylactic antibiotics. | | | Anticoagulants: The patient has taken antiplatelet medication. | | | It was decided not to withhold this medication prior to the | | | procedure. ASA Grade Assessment: III - A patient with severe | | | systemic disease. After reviewing the risks and benefits, the | | | patient was deemed in satisfactory condition to undergo the | | | procedure. The anesthesia plan was to use monitored anesthesia care | | | (MAC). Immediately prior to administration of medications, the | | | patient was re-assessed for adequacy to receive sedatives. The | | | heart rate, respiratory rate, oxygen saturations, blood | | | pressure, adequacy of pulmonary ventilation, and response to | | | care were monitored throughout the procedure. The physical | | | status of the patient was re-assessed after the procedure. | | | - After reviewing the risks and benefits, the patient was deemed in | | | satisfactory condition to undergo the procedure. - Using | | | IV propofol under the supervision of an anesthesiologist was | | | determined to be medically necessary for this procedure based on | | | severe comorbidity (greater than ASA Grade II), inability to | | | follow simple commands and uncooperative or combative patient. | | | - Immediately prior to administration of medications, the | | | patient was re-assessed for adequacy to receive sedatives. | | | - The heart rate, respiratory rate, oxygen saturations, blood | | | pressure, adequacy of pulmonary ventilation, and response to | | | care were monitored throughout the procedure. - The | | | physical status of the patient was re-assessed after the procedure. | | | After obtaining informed consent, the endoscope was passed under | | | direct vision. Throughout the procedure, the patient's blood | | | pressure, pulse, and oxygen saturations were monitored | | | continuously. The endoscope was introduced through the mouth, | | | and advanced to the third part of duodenum. The upper GI | | | endoscopy was accomplished without difficulty. The patient | | | tolerated the procedure.Findings: The upper third of the | | | esophagus, middle third of the esophagus and lower third of the | | | esophagus were normal. Localized moderate inflammation | | | characterized by erythema and friability was found at the | | | gastroesophageal junction and in the prepyloric region of the | | | stomach. Two non-bleeding linear gastric ulcers with pigmented | | | material were found on the lesser curvature of the stomach. To | | | stop active bleeding, four hemostatic clips were successfully | | | placed. There was no bleeding at the end of the procedure. | | | Localized mildly friable mucosa without active bleeding was found | | | in the duodenal bulb. The first portion of the duodenum, | | | second portion of the duodenum, area of the papilla and third | | | portion of the duodenum were normal.Impression: - Normal upper | | | third of esophagus, middle third of esophagus and lower third | | | of esophagus. - Acute gastritis. - Non-bleeding gastric | | | ulcers with pigmented material. Clips were placed. - Friable | | | duodenal mucosa. - Normal first portion of the duodenum, second | | | portion of the duodenum, area of the papilla and third portion | | | of the duodenum. - No specimens collected.Recommendation: | | | - NPO today. - Continue present medications. - Observe | | | patient's clinical course. - Repeat upper endoscopy PRN for | | | retreatment.Terry Weir MD10/05/2017 11:29:44 AMThis report has | | | been signed electronically.Number of Addenda: 0Note Initiated On: | | | 10/05/2017 10:56 AMTotal Procedure Duration: 0 hours 10 minutes 56 | | | seconds Scope In: 11:00:34 AMScope Out: 11:11:30 AM [place] | | | [facility], [facility] [place] [address] | | | [phone] | | | area of the papilla and third portion of the duodenum. | | | - No specimens collected. | | |Recommendation: | | | - NPO today. | | | - Continue present medications. | | | - Observe patient's clinical course. | | | - Repeat upper endoscopy PRN for retreatment. | | |Terry Weir MD | | |10/05/2017 11:29:44 AM | | |This report has been signed electronically. | | |Number of Addenda: 0 | | |Note Initiated On: 10/05/2017 10:56 AM | | |Total Procedure Duration: 0 hours 10 minutes 56 seconds | | |Scope In: 11:00:34 AM | | |Scope Out: 11:11:30 AM | | | [place] [facility], [address] [place] | | | [address] | | + + -+ + +---------+ + + | Performing | Address | City/State/Zipcode | Phone Number | | Organization | | | | + +---------+ + + | [facility] | | | | + +---------+ + + XR Chest AP Portable (10/05/2017 5:53 AM PST) + + | Specimen | + + | | + + + + + | Narrative | Performed At | + + + | SINGLE AP CHEST 10/05/2017 5:28 AM CLINICAL HISTORY: resp failure | [facility] | | COMPARISON: Radiography from the previous day and more remote | | | exams FINDINGS: The endotracheal tube remains in position, | | | terminating approximately 4.5 cm above the tanya. Esophagogastric | | | tube again passes into the imaged left upper abdomen. The | | | cardiomediastinal silhouette and pulmonary vasculature are otherwise | | | unremarkable. There is persistent dense opacity at the medial left | | | base. Mild hazy reticular opacity elsewhere in the lung bases is | | | similar in extent. The upper lung chadwick are clear. No | | | pneumothorax or pleural effusion is visible. Bones and soft tissues | | | are unremarkable. IMPRESSION - 1. ENDOTRACHEAL TUBE 4.5 CM | | | ABOVE THE TANYA. 2. STABLE BIBASILAR OPACITIES DISCUSSED. | | | Dictated and Signed by: Jai De La Rosa MD Electronically signed: | | | 10/05/2017 8:44 PM | | + + + + + | Procedure Note | + + | Sebastian, Rad Results In - 10/05/2017 8:47 PM PST SINGLE AP CHEST 10/05/2017 5:28 AM [...] 10/05/2017 8:44 PM | + + + +---------+ + + | Performing | Address | City/State/Zipcode | Phone Number | | Organization | | | | + +---------+ + + | [facility] | | | | + +---------+ + + Occult Blood, Gastric (10/05/2017 5:25 AM PST) + + + + + + | Component | Value | Ref Range | Performed | Pathologist | | | | | At | Signature | + + + + + + | PH, GASTRIC | 2.0 | | [facility] | | | | | | [facility] | | | | | | MEDICAL | | | | | | CENTER - | | | | | | LABORATORY | | + + + + + + | Occult | Positive (A) | Negative | [facility] | | | Blood, | | | [facility] | | | Gastric | | | MEDICAL | | | Fluid | | | CENTER - | | | | | | LABORATORY | | + + + + + + + + | Specimen | + + | Body Fluid | + + + + + + + | Performing | Address | City/State/Zipcode | Phone Number | | Organization | | | | + + + + + | [facility] | [address] | [place] | [phone] | | [facility] | | [address] | | | - LABORATORY | | | | + + + + + Procalcitonin (10/05/2017 4:27 AM PST) + + + + + + | Component | Value | Ref Range | Performed | Pathologist | | | | | At | Signature | + + + + + + | Procalciton | 0.89 (H) | <=0.50 ng/mL | [facility] | | | in | | | [facility] | | | | | | MEDICAL | | | | | | CENTER - | | | | | | LABORATORY | | + + + + + + | Comment | Comment: < 0.50 | | [facility] | | | | ng/mL:Procalcitonin | | [facility] | | | | levels below 0.50 ng/mL | | MEDICAL | | | | on the first day of | | CENTER - | | | | admission represents a | | LABORATORY | | | | low risk for progression | | | | | | to severe sepsis and/or | | | | | | septic shock, however | | | | | | these do not exclude an | | | | | | infection, because | | | | | | localized infections | | | | | | (without systemic signs) | | | | | | may also be associated | | | | | | with such low levels. | | | | | | > 2.00 | | | | | | ng/mL:Procalcitonin | | | | | | levels above 2.00 ng/mL | | | | | | on the first day of | | | | | | admission represents a | | | | | | high risk for | | | | | | progression to severe | | | | | | sepsis and/or septic | | | | | | shock. If the | | | | | | procalcitonin | | | | | | measurement is performed | | | | | | shortly after the | | | | | | systemic infection | | | | | | process has started | | | | | | (usually less than 6 | | | | | | hours), these values may | | | | | | still be low. As | | | | | | various non-infectious | | | | | | conditions are known to | | | | | | induce procalcitonin as | | | | | | well, procalcitonin | | | | | | levels between 0.50 | | | | | | ng/mL and 2.00 ng/mL | | | | | | should be reviewed | | | | | | carefully to take into | | | | | | account the specific | | | | | | clinical background and | | | | | | condition(s) of the | | | | | | individual patient. | | | | + + + + + + + + | Specimen | + + | Blood | + + + + + + + | Performing | Address | City/State/Zipcode | Phone Number | | Organization | | | | + + + + + | [facility] | [address] | [place] | [phone] | | [facility] | | [address] | | | - LABORATORY | | | | + + + + + Basic Metabolic Panel (10/05/2017 4:27 AM PST) + + + + + + | Component | Value | Ref Range | Performed | Pathologist | | | | | At | Signature | + + + + + + | Na | 142 | 136 - 149 | [facility] | | | | | mmol/L | [facility] | | | | | | MEDICAL | | | | | | CENTER - | | | | | | LABORATORY | | + + + + + + | K | 3.7 | 3.5 - 5.1 | [facility] | | | | | mmol/L | [facility] | | | | | | MEDICAL | | | | | | CENTER - | | | | | | LABORATORY | | + + + + + + | Cl | 111 (H) | 98 - 109 mmol/L | [facility] | | | | | | [facility] | | | | | | MEDICAL | | | | | | CENTER - | | | | | | LABORATORY | | + + + + + + | CO2 | 25 | 24 - 31 mmol/L | [facility] | | | | | | [facility] | | | | | | MEDICAL | | | | | | CENTER - | | | | | | LABORATORY | | + + + + + + | Anion Gap | 6 | 3 - 16 mmol/L | [facility] | | | | | | [facility] | | | | | | MEDICAL | | | | | | CENTER - | | | | | | LABORATORY | | + + + + + + | Glucose | 118 (H) | 70 - 109 mg/dL | [facility] | | | | | | [facility] | | | | | | MEDICAL | | | | | | CENTER - | | | | | | LABORATORY | | + + + + + + | BUN | 17 | 7 - 18 mg/dL | [facility] | | | | | | [facility] | | | | | | MEDICAL | | | | | | CENTER - | | | | | | LABORATORY | | + + + + + + | Creatinine | 1.19 | 0.60 - 1.30 | [facility] | | | | | mg/dL | [facility] | | | | | | MEDICAL | | | | | | CENTER - | | | | | | LABORATORY | | + + + + + + | eGFR if not | >60Comment: GLOMERULAR | >=60 | [facility] | | | | FILTRATION | mL/min/1.73m2 | [facility] | | | MONGOLIAN | RATE,ESTIMATED | | MEDICAL | | | | mL/min/1.64n9Mywv than | | CENTER - | | | | 60 Chronic kidney | | LABORATORY | | | | disease,if found over a | | | | | | 3-month period.Less than | | | | | | 15 Kidney failureFor | | | | | | | | | | | | Americans,multiply the | | | | | | calculated GFR by 1.21. | | | | | | | | | | + + + + + + | Calcium | 8.3 | 8.3 - 10.5 | [facility] | | | | | mg/dL | [facility] | | | | | | MEDICAL | | | | | | CENTER - | | | | | | LABORATORY | | + + + + + + | BUN/Creatin | 14.3 | | [facility] | | | ine Ratio | | | . [facility] | | | | | | [...] + + + + + | [facility] | [address] | [place] | [phone] | | [facility] | | [address] | | | - LABORATORY | | | | + + + + + CBC with Differential (10/05/2017 4:27 AM PST) + + + + + + | Component | Value | Ref Range | Performed | Pathologist | | | | | At | Signature | + + + + + + | WBC | 8.3 | 4.0 - 11.0 K/uL | [facility] | | | | | | [facility] | | | | | | MEDICAL | | | | | | CENTER - | | | | | | LABORATORY | | + + + + + + | RBC | 4.15 (L) | 4.30 - 5.70 | [facility] | | | | | M/uL | [facility] | | | | | | MEDICAL | | | | | | CENTER - | | | | | | LABORATORY | | + + + + + + | Hemoglobin | 12.4 (L) | 13.5 - 18.0 | [facility] | | | | | g/dL | [facility] | | | | | | MEDICAL | | | | | | CENTER - | | | | | | LABORATORY | | + + + + + + | Hematocrit | 37.6 (L) | 40.0 - 51.0 % | [facility] | | | | | | [facility] | | | | | | MEDICAL | | | | | | CENTER - | | | | | | LABORATORY | | + + + + + + | MCV | 90.4 | 83.0 - 101.0 fL | [facility] | | | | | | [facility] | | | | | | MEDICAL | | | | | | CENTER - | | | | | | LABORATORY | | + + + + + + | MCH | 29.7 | 28.0 - 35.0 pg | [facility] | | | | | | [facility] | | | | | | MEDICAL | | | | | | CENTER - | | | | | | LABORATORY | | + + + + + + | MCHC | 32.9 | 32.0 - 36.0 | [facility] | | | | | g/dL | [facility] | | | | | | MEDICAL | | | | | | CENTER - | | | | | | LABORATORY | | + + + + + + | RDW-CV | 16.0 (H) | <15.0 % | [facility] | | | | | | [facility] | | | | | | MEDICAL | | | | | | CENTER - | | | | | | LABORATORY | | + + + + + + | Platelet | 126 (L) | 140 - 440 K/uL | [facility] | | | Count | | | [facility] | | | | | | MEDICAL | | | | | | CENTER - | | | | | | LABORATORY | | + + + + + + | MPV | 8.1 | fL | [facility] | | | | | | [facility] | | | | | | MEDICAL | | | | | | CENTER - | | | | | | LABORATORY | | + + + + + + | % | 78.8 | 45.0 - 82.0 % | [facility] | | | Neutrophils | | | [facility] | | | | | | MEDICAL | | | | | | CENTER - | | | | | | LABORATORY | | + + + + + + | % | 11.4 (L) | 20.0 - 45.0 % | [facility] | | | Lymphocytes | | | [facility] | | | | | | MEDICAL | | | | | | CENTER - | | | | | | LABORATORY | | + + + + + + | % Monocytes | 8.7 | 4.0 - 12.0 % | [facility] | | | | | | [facility] | | | | | | MEDICAL | | | | | | CENTER - | | | | | | LABORATORY | | + + + + + + | % | 0.8 | 0.0 - 5.0 % | [facility] | | | Eosinophils | | | [facility] | | | | | | MEDICAL | | | | | | CENTER - | | | | | | LABORATORY | | + + + + + + | % Basophils | 0.3 | 0.0 - 1.0 % | [facility] | | | | | | [facility] | | | | | | MEDICAL | | | | | | CENTER - | | | | | | LABORATORY | | + + + + + + | Absolute | 6.60 | 1.80 - 8.50 | [facility] | | | Neutrophils | | K/uL | [facility] | | | | | | MEDICAL | | | | | | CENTER - | | | | | | LABORATORY | | + + + + + + | Absolute | 1.00 | 0.60 - 3.20 | [facility] | | | Lymphocytes | | K/uL | [facility] | | | | | | MEDICAL | | | | | | CENTER - | | | | | | LABORATORY | | + + + + + + | Absolute | 0.70 | 0.00 - 1.00 | [facility] | | | Monocytes | | K/uL | [facility] | | | | | | MEDICAL | | | | | | CENTER - | | | | | | LABORATORY | | + + + + + + | Absolute | 0.10 | 0.00 - 0.40 | [facility] | | | Eosinophils | | K/uL | [facility] | | | | | | MEDICAL | | | | | | CENTER - | | | | | | LABORATORY | | + + + + + + | Absolute | 0.00 | 0.00 - 0.10 | [facility] | | | Basophils | | K/uL | [facility] | | | | [...] [facility] | [address] | [place] | [phone] | | [facility] | | [address] | | | - LABORATORY | | | | + + + + + POC Glucose (10/04/2017 9:12 PM PST) + +-------+ + + + | Component | Value | Ref Range | Performed | Pathologist | | | | | At | Signature | + +-------+ + + + | Glucose, | 108 | 70 - 109 mg/dL | [facility] | | | POC | | | [facility] | | | | | | MEDICAL | | | | | | CENTER - | | | | | | LABORATORY | | + +-------+ + + + + + | Specimen | + + | Blood | + + + + + + + | Performing | Address | City/State/Zipcode | Phone Number | | Organization | | | | + + + + + | [facility] | [address] | [place], [place] | [phone] | | [facility] | | [address] | | | - LABORATORY | | | | + + + + + XR Chest AP Portable (10/04/2017 7:15 PM PST) + + | Specimen | + + | | + + + + + | Narrative | Performed At | + + + | EXAM: XR CHEST AP PORTABLE dated 10/04/2017 7:03 PM HISTORY: | [facility] | | acute respiratory failure Comparison: October 03, 2017 | | | TECHNIQUE: A single portable view of the chest. FINDINGS: | | | Persistent the lower lobe parenchymal opacities. Endotracheal tube | | | is in place. The tip is approximately 5 cm above the tanya. There | | | is an enteric tube coursing below diaphragm with the tip not seen. | | | The cardiac and mediastinal contours are stable. Blunting of the | | | left costophrenic angle could be effusion. No pneumothorax. | | | IMPRESSION - Persistent basilar opacities and possible left | | | pleural effusion. No significant change in support lines or tubes. | | | Dictated and Signed by: Terry Swift MD Electronically | | | signed: 10/05/2017 9:50 AM | | + + + + + | Procedure Note | + + | Sebastian, Rad Results In - 10/05/2017 9:54 AM PST EXAM: XR CHEST AP PORTABLE dated | | 10/04/2017 7:03 PMHISTORY: acute respiratory failureComparison: October 03 | | 2017TECHNIQUE: A single portable view of the chest.FINDINGS:Persistent the lower lobe | | parenchymal opacities. Endotracheal tube is in place. The tip is approximately 5 cm | | above the tanya. There is an enteric tubecoursing below diaphragm with the tip not | | seen. The cardiac and mediastinalcontours are stable. Blunting of the left | | costophrenic angle could be effusion. No pneumothorax. IMPRESSION -Persistent basilar | | opacities and possible left pleural effusion.No significant change in support lines or | | tubes.Dictated and Signed by: Terry Swift MD Electronically signed: 10/05/2017 9:50 | | AM | |Persistent the lower lobe parenchymal opacities. [...] 10/05/2017 9:50 AM | + + + +---------+ + + | Performing | Address | City/State/Zipcode | Phone Number | | Organization | | | | + +---------+ + + | [facility] | | | | + +---------+ + + POC Glucose (10/04/2017 5:16 PM PST) + +-------+ + + + | Component | Value | Ref Range | Performed | Pathologist | | | | | At | Signature | + +-------+ + + + | Glucose, | 91 | 70 - 109 mg/dL | [facility] | | | POC | | | [facility] | | | | | | MEDICAL | | | | | | CENTER - | | | | | | LABORATORY | | + +-------+ + + + + + | Specimen | + + | Blood | + + + + + + + | Performing | Address | City/State/Zipcode | Phone Number | | Organization | | | | + + + + + | [facility] | [address] | [place] | [phone] | | [facility] | | [address] | | | - LABORATORY | | | | + + + + + ECG 12 lead (10/04/2017 5:08 PM PST) + + + + + + | Component | Value | Ref Range | Performed | Pathologist | | | | | At | Signature | + + + + + + | VENTRICULAR | 99 | BPM | [facility] | | | RATE EKG | | | | | + + + + + + | ATRIAL RATE | 99 | BPM | [facility] | | + + + + + + | P-R | 156 | ms | [facility] | | | INTERVAL | | | | | + + + + + + | QRS | 128 | ms | [facility] | | | DURATION | | | | | + + + + + + | Q-T | 400 | ms | [facility] | | | INTERVAL | | | | | + + + + + + | Q-T | 513 | ms | [facility] | | | INTERVAL | | | | | | (CORRECTED) | | | | | + + + + + + | P WAVE AXIS | 67 | degrees | [facility] | | + + + + + + | QRS AXIS | -25 | degrees | [facility] | | + + + + + + | T AXIS | 87 | degrees | [facility] | | + + + + + + | INTERPRETAT | Normal sinus rhythmLeft | | [facility] | | | ION TEXT | bundle branch | | | | | | blockAbnormal ECGWhen | | | | | | compared with ECG of | | | | | | 03-OCT-2017 12:55,T wave | | | | | | inversion is no longer | | | | | | present in Lateral | | | | | | leadsConfirmed by | | | | | | FLORY العلي MD ([id number]) | | | | | | on 10/05/2017 7:23:04 AM | | | | + + + [...] | | | + +---------+ + + Extra Green Top Tube (10/04/2017 3:56 PM PST) + +-------+ + + + | Component | Value | Ref Range | Performed | Pathologist | | | | | At | Signature | + +-------+ + + + | Extra Green | Done | | [facility] | | | Top Tube | | | [facility] | | | | | | [facility] | | | | | | CENTER - | | | | | | LABORATORY | | + +-------+ + + + + + | Specimen | + + | Blood | + + + + + + + | Performing | Address | City/State/Zipcode | Phone Number | | Organization | | | | + + + + + | [facility] | [address] | [place] | [phone] | | [facility] | | [address] | | | - LABORATORY | | | | + + + + + Extra Lavender Top Tube (10/04/2017 2:43 PM PST) + +-------+ + + + | Component | Value | Ref Range | Performed | Pathologist | | | | | At | Signature | + +-------+ + + + | Extra | Done | | [facility] | | | Lavender | | | [facility] | | | Top Tube | | | MEDICAL | | | | | | CENTER - | | | | | | LABORATORY | | + +-------+ + + + + + | Specimen | + + | Blood | + + + + + + + | Performing | Address | City/State/Zipcode | Phone Number | | Organization | | | | + + + + + | [facility] | [address] | [place] | [phone] | | [facility] | | [address] | | | - LABORATORY | | | | + + + + + Troponin I (10/04/2017 2:43 PM PST) + + + + + + | Component | Value | Ref Range | Performed | Pathologist | | | | | At | Signature | + + + + + + | Troponin I | 9.32 ()Comment: | <0.06 ng/mL | [facility] | | | | Reference | | [facility] | | | | Ranges:0.00-0.06 = | | MEDICAL | | | | NORMAL>0.06 = | | CENTER - | | | | SUSPICIOUS FOR | | LABORATORY | | | | MYOCARDIAL DAMAGE NOTE: | | | | | | Values greater than 0.50 | | | | | | ng/mL have been shown | | | | | | to be strongly | | | | | | associated with acute | | | | | | myocardial infarction. | | | | | | Consistent with previous | | | | | | results. The [place] | | | | | | College of Cardiology | | | | | | (ACC) recommends a | | | | | | decision limit of 0.06 | | | | | | ng/mL for this assay. | | | | | | Results greater than | | | | | | 0.06 can reflect a | | | | | | pre-infarct acute | | | | | | coronary syndrome, but | | | | | | can also reflect | | | | | | myocardial necrosis or | | | | | | injury that is not due | | | | | | to coronary artery | | | | | | disease. Some of these | | | | | | causes are sepsis, | | | | | | hypocolemia, atrial | | | | | | fibrillation, heart | | | | | | failure, pulmonary | | | | | | embolism, myocarditis, | | | | | | myocardial contusion, | | | | | | and renal failure. The | | | | | | diagnosis of myocardial | | | | | | infarction should be | | | | | | based on a combination | | | | | | of the patient's | | | | | | clinical presentation | | | | | | and the clinical | | | | | | laboratory test results | | | | | | (especially serial | | | | | | troponin levels). | | | | + + + + + + + + | Specimen | + + | Blood | + + + + + + + | Performing | Address | City/State/Zipcode | Phone Number | | Organization | | | | + + + + + | [facility] | [address] | [place] | [phone] | | [facility] | | [address] | | | - LABORATORY | | | | + + + + + Blood Gas, Arterial (10/04/2017 1:33 PM PST) + + + + + + | Component | Value | Ref Range | Performed | Pathologist | | | | | At | Signature | + + + + + + | pH Temp | 7.46 | | [facility] | | | Corrected, | | | [facility] | | | Arterial | | | MEDICAL | | | | | | CENTER - | | | | | | LABORATORY | | + + + + + + | pCO2 Temp | 35 | mmHg | [facility] | | | Corrected, | | | [facility] | | | Arterial | | | MEDICAL | | | | | | CENTER - | | | | | | LABORATORY | | + + + + + + | pO2 Temp | 74 | mmHg | [facility] | | | Corrected, | | | [facility] | | | Arterial | | | MEDICAL | | | | | | CENTER - | | | | | | LABORATORY | | + + + + + + | pH, | 7.46 (H) | 7.35 - 7.45 | [facility] | | | Arterial | | | [facility] | | | | | | MEDICAL | | | | | | CENTER - | | | | | | LABORATORY | | + + + + + + | pCO2, | 35 | 35 - 45 mm Hg | [facility] | | | Arterial | | | [facility] | | | | | | MEDICAL | | | | | | CENTER - | | | | | | LABORATORY | | + + + + + + | pO2, | 74 | >=60 mm Hg | [facility] | | | Arterial | | | [facility] | | | | | | MEDICAL | | | | | | CENTER - | | | | | | LABORATORY | | + + + + + + | HCO3, | 24.7 (H) | 18.0 - 23.0 | [facility] | | | Arterial | | mmol/L | [facility] | | | | | | MEDICAL | | | | | | CENTER - | | | | | | LABORATORY | | + + + + + + | Base | 1.7 | -2.0 - 2.0 | [facility] | | | Excess, | | mmol/L | [facility] | | | Arterial | | | MEDICAL | | | | | | CENTER - | | | | | | LABORATORY | | + + + + + + | O2 | 95 | 95 - 98 % | [facility] | | | Saturation, | | | [facility] | | | Arterial | | | MEDICAL | | | | | | CENTER - | | | | | | LABORATORY | | + + + + + + | Hemoglobin, | 13.2 | g/dL | [facility] | | | Arterial | | | [facility] | | | | | | MEDICAL | | | | | | CENTER - | | | | | | LABORATORY | | + + + + + + | Oxyhemoglob | 92.9 | 90.0 - 100.0 % | [facility] | | | in, | | | [facility] | | | Arterial | | | MEDICAL | | | | | | CENTER - | | | | | | LABORATORY | | + + + + + + | Methemoglob | 1.2 | 0.0 - 1.5 % | [facility] | | | in, | | | [facility] | | | Arterial | | | MEDICAL | | | | | | CENTER - | | | | | | LABORATORY | | + + + + + + | Carboxyhemo | 1.4 | 0.0 - 1.5 % | [facility] | | | globin, | | | [facility] | | | Arterial | | | MEDICAL | | | | | | CENTER - | | | | | | LABORATORY | | + + + + + + | FiO2 | 40.0 | % | [facility] | | | | | [...] Performed At | + + + | SIMV 16 TV 550, PS+ 10, PEEP +5, 40%, ETCO2 35 OLH070% | [facility] | | | [facility] | | | [facility] CENTER | | | - LABORATORY | + + + + + + + + | Performing | Address | City/State/Zipcode | Phone Number | | Organization | | | | + + + + + | [facility] | [address] | [place] | [phone] | | [facility] | | [address] | | | - LABORATORY | | | | + + + + + POC Glucose (10/04/2017 12:23 PM PST) + +-------+ + + + | Component | Value | Ref Range | Performed | Pathologist | | | | | At | Signature | + +-------+ + + + | Glucose, | 106 | 70 - 109 mg/dL | [facility] | | | POC | | | [facility] | | | | | | MEDICAL | | | | | | CENTER - | | | | | | LABORATORY | | + +-------+ + + + + + | Specimen | + + | Blood | + + + + + + + | Performing | Address | City/State/Zipcode | Phone Number | | Organization | | | | + + + + + | [facility] | [address] | [place] | [phone] | | [facility] | | [address] | | | - LABORATORY | | | | + + + + + CBC with Differential (10/04/2017 3:45 AM PST) + + + + + + | Component | Value | Ref Range | Performed | Pathologist | | | | | At | Signature | + + + + + + | WBC | 10.5 | 4.0 - 11.0 K/uL | [facility] | | | | | | [facility] | | | | | | MEDICAL | | | | | | CENTER - | | | | | | LABORATORY | | + + + + + + | RBC | 4.49 | 4.30 - 5.70 | [facility] | | | | | M/uL | [facility] | | | | | | MEDICAL | | | | | | CENTER - | | | | | | LABORATORY | | + + + + + + | Hemoglobin | 13.2 (L) | 13.5 - 18.0 | [facility] | | | | | g/dL | [facility] | | | | | | MEDICAL | | | | | | CENTER - | | | | | | LABORATORY | | + + + + + + | Hematocrit | 40.5 | 40.0 - 51.0 % | [facility] | | | | | | [facility] | | | | | | MEDICAL | | | | | | CENTER - | | | | | | LABORATORY | | + + + + + + | MCV | 90.3 | 83.0 - 101.0 fL | [facility] | | | | | | [facility] | | | | | | MEDICAL | | | | | | CENTER - | | | | | | LABORATORY | | + + + + + + | MCH | 29.5 | 28.0 - 35.0 pg | [facility] | | | | | | [facility] | | | | | | MEDICAL | | | | | | CENTER - | | | | | | LABORATORY | | + + + + + + | MCHC | 32.6 | 32.0 - 36.0 | [facility] | | | | | g/dL | [facility] | | | | | | MEDICAL | | | | | | CENTER - | | | | | | LABORATORY | | + + + + + + | RDW-CV | 16.0 (H) | <15.0 % | [facility] | | | | | | [facility] | | | | | | MEDICAL | | | | | | CENTER - | | | | | | LABORATORY | | + + + + + + | Platelet | 151 | 140 - 440 K/uL | [facility] | | | Count | | | [facility] | | | | | | MEDICAL | | | | | | CENTER - | | | | | | LABORATORY | | + + + + + + | MPV | 8.1 | fL | [facility] | | | | | | [facility] | | | | | | MEDICAL | | | | | | CENTER - | | | | | | LABORATORY | | + + + + + + | % | 79.9 | 45.0 - 82.0 % | [facility] | | | Neutrophils | | | [facility] | | | | | | MEDICAL | | | | | | CENTER - | | | | | | LABORATORY | | + + + + + + | % | 10.2 (L) | 20.0 - 45.0 % | [facility] | | | Lymphocytes | | | [facility] | | | | | | MEDICAL | | | | | | CENTER - | | | | | | LABORATORY | | + + + + + + | % Monocytes | 9.8 | 4.0 - 12.0 % | [facility] | | | | | | [facility] | | | | | | MEDICAL | | | | | | CENTER - | | | | | | LABORATORY | | + + + + + + | % | 0.0 | 0.0 - 5.0 % | [facility] | | | Eosinophils | | | [facility] | | | | | | MEDICAL | | | | | | CENTER - | | | | | | LABORATORY | | + + + + + + | % Basophils | 0.1 | 0.0 - 1.0 % | [facility] | | | | | | [facility] | | | | | | MEDICAL | | | | | | CENTER - | | | | | | LABORATORY | | + + + + + + | Absolute | 8.40 | 1.80 - 8.50 | [facility] | | | Neutrophils | | K/uL | [facility] | | | | | | MEDICAL | | | | | | CENTER - | | | | | | LABORATORY | | + + + + + + | Absolute | 1.10 | 0.60 - 3.20 | [facility] | | | Lymphocytes | | K/uL | [facility] | | | | | | MEDICAL | | | | | | CENTER - | | | | | | LABORATORY | | + + + + + + | Absolute | 1.00 | 0.00 - 1.00 | [facility] | | | Monocytes | | K/uL | [facility] | | | | | | MEDICAL | | | | | | CENTER - | | | | | | LABORATORY | | + + + + + + | Absolute | 0.00 | 0.00 - 0.40 | [facility] | | | Eosinophils | | K/uL | [facility] | | | | | | MEDICAL | | | | | | CENTER - | | | | | | LABORATORY | | + + + + + + | Absolute | 0.00 | 0.00 - 0.10 | [facility] | | | Basophils | | K/uL | [facility] | | | | | | MEDICAL [...] | + + + + + | [facility] | [address] | [place] | [phone] | | [facility] | | [address] | | | - LABORATORY | | | | + + + + + Magnesium (10/04/2017 3:43 AM PST) + +-------+ + + + | Component | Value | Ref Range | Performed | Pathologist | | | | | At | Signature | + +-------+ + + + | Magnesium | 1.9 | 1.8 - 2.5 mg/dL | [facility] | | | | | | [facility] | | | | | | MEDICAL | | | | | | CENTER - | | | | | | LABORATORY | | + +-------+ + + + + + | Specimen | + + | Blood | + + + + + + + | Performing | Address | City/State/Zipcode | Phone Number | | Organization | | | | + + + + + | [facility] | [address] | [place] | [phone] | | [facility] | | [address] | | | - LABORATORY | | | | + + + + + Basic Metabolic Panel (10/04/2017 3:43 AM PST) + + + + + + | Component | Value | Ref Range | Performed | Pathologist | | | | | At | Signature | + + + + + + | Na | 140 | 136 - 149 | [facility] | | | | | mmol/L | [facility] | | | | | | MEDICAL | | | | | | CENTER - | | | | | | LABORATORY | | + + + + + + | K | 3.5 | 3.5 - 5.1 | [facility] | | | | | mmol/L | [facility] | | | | | | MEDICAL | | | | | | CENTER - | | | | | | LABORATORY | | + + + + + + | Cl | 111 (H) | 98 - 109 mmol/L | [facility] | | | | | | [facility] | | | | | | MEDICAL | | | | | | CENTER - | | | | | | LABORATORY | | + + + + + + | CO2 | 23 (L) | 24 - 31 mmol/L | [facility] | | | | | | [facility] | | | | | | MEDICAL | | | | | | CENTER - | | | | | | LABORATORY | | + + + + + + | Anion Gap | 6 | 3 - 16 mmol/L | [facility] | | | | | | [facility] | | | | | | MEDICAL | | | | | | CENTER - | | | | | | LABORATORY | | + + + + + + | Glucose | 141 (H) | 70 - 109 mg/dL | [facility] | | | | | | [facility] | | | | | | MEDICAL | | | | | | CENTER - | | | | | | LABORATORY | | + + + + + + | BUN | 20 (H) | 7 - 18 mg/dL | [facility] | | | | | | [facility] | | | | | | MEDICAL | | | | | | CENTER - | | | | | | LABORATORY | | + + + + + + | Creatinine | 1.26 | 0.60 - 1.30 | [facility] | | | | | mg/dL | [facility] | | | | | | MEDICAL | | | | | | CENTER - | | | | | | LABORATORY | | + + + + + + | eGFR if not | 58 (L)Comment: | >=60 | [facility] | | | | GLOMERULAR FILTRATION | mL/min/1.73m2 | [facility] | | | [place] | RATE,ESTIMATED | | MEDICAL | | | | mL/min/1.64i2Rjpr than | | CENTER - | | | | 60 Chronic kidney | | LABORATORY | | | | disease,if found over a | | | | | | 3-month period.Less than | | | | | | 15 Kidney failureFor | | | | | | | | | | | | Americans,multiply the | | | | | | calculated GFR by 1.21. | | | | | | | | | | + + + + + + | Calcium | 8.1 (L) | 8.3 - 10.5 | [facility] | | | | | mg/dL | [facility] | | | | | | MEDICAL | | | | | | CENTER - | | | | | | LABORATORY | | + + + + + + | BUN/Creatin | 15.9 | | [facility] | | | ine Ratio | | | [facility] | | | | | | [...] + + | [facility] | [address] | [place] | [phone] | | [facility] | | [address] | | | - LABORATORY | | | | + + + + + Troponin I (10/03/2017 11:28 PM PST) + + + + + + | Component | Value | Ref Range | Performed | Pathologist | | | | | At | Signature | + + + + + + | Troponin I | 26.62 ()Comment: | <0.06 ng/mL | [facility] | | | | Reference | | [facility] | | | | Ranges:0.00-0.06 = | | MEDICAL | | | | NORMAL>0.06 = | | CENTER - | | | | SUSPICIOUS FOR | | LABORATORY | | | | MYOCARDIAL DAMAGE NOTE: | | | | | | Values greater than 0.50 | | | | | | ng/mL have been shown | | | | | | to be strongly | | | | | | associated with acute | | | | | | myocardial infarction. | | | | | | Consistent with previous | | | | | | results. The [place] | | | | | | College of Cardiology | | | | | | (ACC) recommends a | | | | | | decision limit of 0.06 | | | | | | ng/mL for this assay. | | | | | | Results greater than | | | | | | 0.06 can reflect a | | | | | | pre-infarct acute | | | | | | coronary syndrome, but | | | | | | can also reflect | | | | | | myocardial necrosis or | | | | | | injury that is not due | | | | | | to coronary artery | | | | | | disease. Some of these | | | | | | causes are sepsis, | | | | | | hypocolemia, atrial | | | | | | fibrillation, heart | | | | | | failure, pulmonary | | | | | | embolism, myocarditis, | | | | | | myocardial contusion, | | | | | | and renal failure. The | | | | | | diagnosis of myocardial | | | | | | infarction should be | | | | | | based on a combination | | | | | | of the patient's | | | | | | clinical presentation | | | | | | and the clinical | | | | | | laboratory test results | | | | | | (especially serial | | | | | | troponin levels). | | | | + + + + + + + + | Specimen | + + | Blood | + + + + + + + | Performing | Address | City/State/Zipcode | Phone Number | | Organization | | | | + + + + + | [facility] | [address] | [place], [place] | [phone] | | [facility] | | [address] | | | - LABORATORY | | | | + + + + + POC Glucose (10/03/2017 9:46 PM PST) + +---------+ + + + | Component | Value | Ref Range | Performed | Pathologist | | | | | At | Signature | + +---------+ + + + | Glucose, | 115 (H) | 70 - 109 mg/dL | [facility] | | | POC | | | [facility] | | | | | | MEDICAL | | | | | | CENTER - | | | | | | LABORATORY | | + +---------+ + + + + + | Specimen | + + | Blood | + + + + + + + | Performing | Address | City/State/Zipcode | Phone Number | | Organization | | | | + + + + + | [facility] | [address] | [place] | [phone] | | [facility] | | [address] | | | - LABORATORY | | | | + + + + + Basic Metabolic Panel (10/03/2017 6:51 PM PST) + + + + + + | Component | Value | Ref Range | Performed | Pathologist | | | | | At | Signature | + + + + + + | Na | 138 | 136 - 149 | [facility] | | | | | mmol/L | [facility] | | | | | | MEDICAL | | | | | | CENTER - | | | | | | LABORATORY | | + + + + + + | K | 4.3 | 3.5 - 5.1 | [facility] | | | | | mmol/L | [facility] | | | | | | MEDICAL | | | | | | CENTER - | | | | | | LABORATORY | | + + + + + + | Cl | 111 (H) | 98 - 109 mmol/L | [facility] | | | | | | [facility] | | | | | | MEDICAL | | | | | | CENTER - | | | | | | LABORATORY | | + + + + + + | CO2 | 21 (L) | 24 - 31 mmol/L | [facility] | | | | | | [facility] | | | | | | MEDICAL | | | | | | CENTER - | | | | | | LABORATORY | | + + + + + + | Anion Gap | 6 | 3 - 16 mmol/L | [facility] | | | | | | [facility] | | | | | | MEDICAL | | | | | | CENTER - | | | | | | LABORATORY | | + + + + + + | Glucose | 143 (H) | 70 - 109 mg/dL | [facility] | | | | | | [facility] | | | | | | MEDICAL | | | | | | CENTER - | | | | | | LABORATORY | | + + + + + + | BUN | 23 (H) | 7 - 18 mg/dL | [facility] | | | | | | [facility] | | | | | | MEDICAL | | | | | | CENTER - | | | | | | LABORATORY | | + + + + + + | Creatinine | 1.42 (H) | 0.60 - 1.30 | [facility] | | | | | mg/dL | [facility] | | | | | | MEDICAL | | | | | | CENTER - | | | | | | LABORATORY | | + + + + + + | eGFR if not | 51 (L)Comment: | >=60 | [facility] | | | | GLOMERULAR FILTRATION | mL/min/1.73m2 | [facility] | | | [place] | RATE,ESTIMATED | | MEDICAL | | | | mL/min/1.91l5Meip than | | CENTER - | | | | 60 Chronic kidney | | LABORATORY | | | | disease,if found over a | | | | | | 3-month period.Less than | | | | | | 15 Kidney failureFor | | | | | | | | | | | | Americans,multiply the | | | | | | calculated GFR by 1.21. | | | | | | | | | | + + + + + + | Calcium | 7.6 (L) | 8.3 - 10.5 | [facility] | | | | | mg/dL | [facility] | | | | | | MEDICAL | | | | | | CENTER - | | | | | | LABORATORY | | + + + + + + | BUN/Creatin | 16.2 | | [facility] | | | ine Ratio | | | [facility] | | | | | | MEDICAL [...] | + + + + + | [facility] | [address] | [place] | [phone] | | [facility] | | [address] | | | - LABORATORY | | | | + + + + + Procalcitonin (10/03/2017 3:45 PM PST) + + + + + + | Component | Value | Ref Range | Performed | Pathologist | | | | | At | Signature | + + + + + + | Procalciton | 3.53 ()Comment: | <=0.50 ng/mL | [facility] | | | in | Critical Result called | | [facility] | | | | to and read back by | | MEDICAL | | | | Demetra Arreola on | | CENTER - | | | | 10/03/2017 at 17:15 by | | LABORATORY | | | | Juan Srinivasan. | | | | + + + + + + + + | Specimen | + + | Blood | + + + + + + + | Performing | Address | City/State/Zipcode | Phone Number | | Organization | | | | + + + + + | [facility] | [address] | [place] | [phone] | | [facility] | | [address] | | | - LABORATORY | | | | + + + + + Troponin I (10/03/2017 3:45 PM PST) + + + + + + | Component | Value | Ref Range | Performed | Pathologist | | | | | At | Signature | + + + + + + | Troponin I | 25.23 ()Comment: | <0.06 ng/mL | [facility] | | | | Reference | | [facility] | | | | Ranges:0.00-0.06 = | | MEDICAL | | | | NORMAL>0.06 = | | CENTER - | | | | SUSPICIOUS FOR | | LABORATORY | | | | MYOCARDIAL DAMAGE NOTE: | | | | | | Values greater than 0.50 | | | | | | ng/mL have been shown | | | | | | to be strongly | | | | | | associated with acute | | | | | | myocardial infarction. | | | | | | Critical Result called | | | | | | to and read back by | | | | | | Demetra Kirk on | | | | | | 10/03/2017 at 17:09 by | | | | | | Juan Srinivasan. The | | | | | | [place] [employer] of | | | | | | Cardiology (ACC) | | | | | | recommends a decision | | | | | | limit of 0.06 ng/mL for | | | | | | this assay. Results | | | | | | greater than 0.06 can | | | | | | reflect a pre-infarct | | | | | | acute coronary syndrome, | | | | | | but can also reflect | | | | | | myocardial necrosis or | | | | | | injury that is not due | | | | | | to coronary artery | | | | | | disease. Some of these | | | | | | causes are sepsis, | | | | | | hypocolemia, atrial | | | | | | fibrillation, heart | | | | | | failure, pulmonary | | | | | | embolism, myocarditis, | | | | | | myocardial contusion, | | | | | | and renal failure. The | | | | | | diagnosis of myocardial | | | | | | infarction should be | | | | | | based on a combination | | | | | | of the patient's | | | | | | clinical presentation | | | | | | and the clinical | | | | | | laboratory test results | | | | | | (especially serial | | | | | | troponin levels). | | | | + + + + + + + + | Specimen | + + | Blood | + + + + + + + | Performing | Address | City/State/Zipcode | Phone Number | | Organization | | | | + + + + + | [facility] | [address] | [place], [place] | [phone] | | [facility] | | [address] | | | - LABORATORY | | | | + + + + + CV CARDIAC PROCEDURE (10/03/2017 3:18 PM PST) + + | Specimen | + + | | + + + + + | Narrative | Performed At | + + + | Delmer Gomez | [facility] | | MD Malaika 10/03/2017 16:25CARDIAC CATHETERIZATION REPORT DATE OF | | | PROCEDURE: 10/03/17 PRECATHETERIZATION INFORMED CONSENT : | | | Yes TIMEOUT Before start of procedure done: Yes CURB MACHINE OPERATOR: Delmer | | | Mila Gomez M.D., F.A.C.C. PRIMARY PHYSICIAN: Chato Matson MD | | | PROCEDURES PERFORMED: Left heart catheterization, selective coronary | | | arteriography INDICATIONS : 61-year-old gentleman presenting with | | | acute hypoxic respiratory failure, new left bundle branch block, | | | increasing troponin levels, history of coronary artery PCI and prior | | | anterior myocardial infarction ARTERIAL ACCESS: Right femoral artery 6 | | | Austrian CLOSURE DEVICE:. Sheath left in place as arterial line | | | DESCRIPTION OF PROCEDURE: After obtaining informed consent from the | | | patient's , the patient was brought to the cardiac catheterization | | | laboratory intubated and mechanically ventilated and sedated. He | | | was prepped and draped in usual fashion. Local anesthesia was | | | administered to the right inguinal area with 1% lidocaine. Access to | | | the right femoral artery was achieved using a modified Seldinger | | | technique and a 6 Austrian sheath was inserted. Selective coronary | | | arteriography was performed using 6 Austrian Kymberly right 4 and left 4 | | | catheters. A Kymberly right 4 catheter was passed across the aortic | | | valve over a guidewire without difficulty. Left ventricular | | | pressures and aortic valve pullback pressures were recorded. There | | | were no complications. The right femoral artery sheath was sutured | | | in place to function his arterial line. SEDATION MEDICATIONS: The | | | patient was on intravenous propofol throughout the procedureCONTRAST | | | VOLUME: 50 FLUORO TIME: 2 minutes; FLUORO DOSE: 468.87 mGy/cm2 | | | HEMODYNAMICS:LEFT HEART: Left ventricular end diastolic pressure: 14 | | | mmHg Aortic pressure: 75/40 mmHgAortic Valve Gradient on pullback: 0 | | | mmHg CORONARY ANGIOGRAPHYDOMINANCE: Right LEFT MAIN ARTERY: Medium | | | caliber vessel, vessel caliber tapers distally, eccentric 50% distal | | | bifurcation lesion within previous stent LEFT ANTERIOR DESCENDING | | | ARTERY: 70% ostial in-stent stenosis, medium caliber first diagonal | | | branch with mild luminal irregularity, moderate diffuse mid to distal | | | LAD disease with ANNA grade 1 flow to distal LAD CIRCUMFLEX ARTERY: | | | Medium caliber vessel, 95-99% ostial and proximal in-stent stenosis, | | | small caliber first obtuse marginal branch, for additional more distal | | | obtuse marginal branches of medium caliber with mild to moderate | | | diffuse disease RIGHT CORONARY ARTERY: Medium caliber vessel arising | | | from right coronary cusp, and dominant, 30% proximal stenosis, diffuse | | | 40-50% mid vessel disease, mild luminal irregularity in distal | | | branches including PDA and posterior lateral branches CONTRAST LEFT | | | VENTRICULOGRAPHY: Not performed CONCLUSIONS: 1. Systemic | | | hypotension, upper normal left ventricular end-diastolic pressure2. | | | Severe in-stent stenosis of left main to ostial LAD stent3. Severe | | | in-stent stenosis ostial proximal left circumflex stent4. Mild to | | | moderate RCA disease5. ANNA grade 1 flow to distal LAD PLAN: | | | the patient is presenting with fever, leukocytosis, possible | | | pneumonitis on chest x-ray, and high grade ostial LAD and circumflex | | | in-stent stenoses with new left bundle branch block and elevated | | | troponin. The patient's primary illness may be pneumonitis with | | | septic shock with resulting hypotension causing myocardial ischemia. | | | The patient will require coronary revascularization at some point. | | | I recommend that we continue treating the patient with | | | broad-spectrum antibiotics, fluid support, ventilatory support and | | | pressors as needed. The patient's left ventricular filling pressures | | | and unchanged left ventricular function and echocardiogram do not | | | suggest acute cardiac decompensation as his primary reason for | | | hypotension. If the patient shows signs of cardiac instability we | | | will transfer the patient to [place] for consideration of urgent | | | coronary revascularization. Delmer Gomez M.D., | | | Nora.Interventional CardiologistProv[facility]iverview [facility] | | | [place] | | | | | |CIRCUMFLEX ARTERY: Medium caliber vessel, 95-99% ostial and | | |proximal in-stent stenosis, small caliber first obtuse marginal | | |branch, for additional more distal obtuse marginal branches of | | |medium caliber with mild to moderate diffuse disease | | | | | |RIGHT CORONARY ARTERY: Medium caliber vessel arising from right | | |coronary cusp, and dominant, 30% proximal stenosis, diffuse | | |40-50% mid vessel disease, mild luminal irregularity in distal | | |branches including PDA and posterior lateral branches | | | | | |CONTRAST LEFT VENTRICULOGRAPHY: Not performed | | | | | |CONCLUSIONS: | | |1. Systemic hypotension, upper normal left ventricular | | |end-diastolic pressure | | |2. Severe in-stent stenosis of left main to ostial LAD stent | | |3. Severe in-stent stenosis ostial proximal left circumflex | | |stent | | |4. Mild to moderate RCA disease | | |5. ANNA grade 1 flow to distal LAD | | | | | |PLAN: the patient is presenting with fever, leukocytosis, | | |possible pneumonitis on chest x-ray, and high grade ostial LAD | | |and circumflex in-stent stenoses with new left bundle branch | | |block and elevated troponin. The patient's primary illness may | | |be pneumonitis with septic shock with resulting hypotension | | |causing myocardial ischemia. The patient will require coronary | | |revascularization at some point. I recommend that we continue | | |treating the patient with broad-spectrum antibiotics, fluid | | |support, ventilatory support and pressors as needed. The | | |patient's left ventricular filling pressures and unchanged left | | |ventricular function and echocardiogram do not suggest acute | | |cardiac decompensation as his primary reason for hypotension. If | | |the patient shows signs of cardiac instability we will transfer | | |the patient to [place] for consideration of urgent coronary | | |revascularization. | | | | | |Delmer Gomez M.D., Jovana.Anette.C.C. | | |Vocational Nursing Instructor | | |[facility] | | |[place] | | | | | | | | | | | + + + + +---------+ + + | Performing | Address | City/State/Zipcode | Phone Number | | Organization | | | | + +---------+ + + | [facility] | | | | + +---------+ + + Culture, Blood (10/03/2017 1:15 PM PST) + + + + + + | Component | Value | Ref Range | Performed | Pathologist | | | | | At | Signature | + + + + + + | Culture | No growth after 5 days | | [facility] | | | | incubation. | | [facility] | | | | | [facility] | | | | | | C[facility] - | | | | | | LABORATORY | | + + + + + + + + | Specimen | + + | Blood - Peripheral | | blood specimen | | (specimen) | + + + + + + + | Performing | Address | City/State/Zipcode | Phone Number | | Organization | | | | + + + + + | [facility] | [address] | [place] | [phone] | | [facility] | | [address] | | | - LABORATORY | | | | + + + + + ECG 12 lead (10/03/2017 12:55 PM PST) + + + + + + | Component | Value | Ref Range | Performed | Pathologist | | | | | At | Signature | + + + + + + | VENTRICULAR | 124 | BPM | [facility] | | | RATE EKG | | | | | + + + + + + | ATRIAL RATE | 124 | BPM | [facility] | | + + + + + + | P-R | 156 | ms | [facility] | | | INTERVAL | | | | | + + + + + + | QRS | 146 | ms | [facility] | | | DURATION | | | | | + + + + + + | Q-T | 318 | ms | [facility] | | | INTERVAL | | | | | + + + + + + | Q-T | 456 | ms | [facility] | | | INTERVAL | | | | | | (CORRECTED) | | | | | + + + + + + | P WAVE AXIS | 64 | degrees | [facility] | | + + + + + + | QRS AXIS | 4 | degrees | [facility] | | + + + + + + | T AXIS | 117 | degrees | [facility] | | + + + + + + | INTERPRETAT | Sinus tachycardiaLeft | | [facility] | | | ION TEXT | bundle branch | | | | | | blockAbnormal ECGWhen | | | | | | compared with ECG of | | | | | | 04-MAY-2017 | | | | | | 15:20,premature | | | | | | ventricular complexes | | | | | | are no longer | | | | | | presentVent. rate has | | | | | | increased BY 43 | | | | | | BPMLeft bundle branch | | | | | | block is now present | | | | | | :consider | | | | | | ischemia/infarctionConfi | | | | | | rmed by FLORY العلي MD | | | | | | ([id number]) on 10/04/2017 | | | | | | 10:35:54 AM | | | | + + + [...] | | | + +---------+ + + POC Glucose (10/03/2017 12:23 PM PST) + +---------+ + + + | Component | Value | Ref Range | Performed | Pathologist | | | | | At | Signature | + +---------+ + + + | Glucose, | 136 (H) | 70 - 109 mg/dL | [facility] | | | POC | | | [facility] | | | | | | MEDICAL | | | | | | CENTER - | | | | | | LABORATORY | | + +---------+ + + + + + | Specimen | + + | Blood | + + + + + + + | Performing | Address | City/State/Zipcode | Phone Number | | Organization | | | | + + + + + | [facility] | [address] | [place] | [phone] | | [facility] | | [address] | | | - LABORATORY | | | | + + + + + XR Chest AP Portable (10/03/2017 12:03 PM PST) + + | Specimen | + + | | + + + + + | Narrative | Performed At | + + + | CLINICAL INFORMATION: Eval for acute hypoxic respiratory failure. | [facility] | | COMPARISON: 03/15/2017. FINDINGS: Portable frontal chest | | | radiograph. Endotracheal tube approximately 4.8 cm from the | | | tanya. Enteric tube projecting below the left hemidiaphragm, tip not | | | seen. Side port is noted at the level of the gastric fundus. | | | Lungs: Mixed interstitial and alveolar opacities are noted | | | predominantly at the mid to lower lungs. Mild interstitial | | | thickening noted throughout the perihilar regions. No pleural | | | effusion or pneumothorax. Heart/mediastinum: Cardiac silhouette is | | | of normal size. No mediastinal widening. Bones: No acute osseous | | | abnormality appreciated. IMPRESSION - Tubes as above. Mixed | | | interstitial and alveolar opacities predominantly at the mid to lower | | | lungs, may reflect pulmonary edema versus atypical infectious | | | process. Dictated and Signed by: Alin Ramírez MD | | | Electronically signed: 10/03/2017 12:41 PM | | + + + + + | Procedure Note | + + | Sebastian, Rad Results In - 10/03/2017 12:44 PM PST | | CLINICAL INFORMATION: Eval for [...] 10/03/2017 12:41 PM | + + + +---------+ + + | Performing | Address | City/State/Zipcode | Phone Number | | Organization | | | | + +---------+ + + | [facility] | | | | + +---------+ + + Culture, Blood (10/03/2017 11:49 AM PST) + + + + + + | Component | Value | Ref Range | Performed | Pathologist | | | | | At | Signature | + + + + + + | Culture | No growth after 5 days | | [facility] | | | | incubation. | | [facility] | | | | | | MEDICAL | | | | | | CENTER - | | | | | | LABORATORY | | + + + + + + + + | Specimen | + + | Blood - Swab of line | | insertion site | | (specimen) | + + + + + + + | Performing | Address | City/State/Zipcode | Phone Number | | Organization | | | | + + + + + | [facility] | [address] | [place] | [phone] | | [facility] | | [address] | | | - LABORATORY | | | | + + + + + Slide Review, Peripheral Smear (10/03/2017 11:29 AM PST) + +--------+ + + + | Component | Value | Ref Range | Performed | Pathologist | | | | | At | Signature | + +--------+ + + + | RBC | Normal | | [facility] | | | Morphology | | | [facility] | | | | | | MEDICAL | | | | | | CENTER - | | | | | | LABORATORY | | + +--------+ + + + | WBC | Normal | | [facility] | | | Morphology | | | [facility] | | | | | | MEDICAL | | | | | | CENTER - | | | | | | LABORATORY | | + +--------+ + + + | Platelet | Normal | | [facility] | | | Morphology | | | [facility] | | | | | | MEDICAL | | | | | | CENTER - | | | | | | LABORATORY | | + +--------+ + + + + + | Specimen | + + | Blood | + + + + + | Narrative | Performed At | + + + | No platelet clumps seen | [facility] | | | [facility] | | | - LABORATORY | + + + + + + + + | Performing | Address | City/State/Zipcode | Phone Number | | Organization | | | | + + + + + | [facility] | [address] | [place] | [phone] | | [facility] | | [address] | | | - LABORATORY | | | | + + + + + Lactic Acid (10/03/2017 11:29 AM PST) + +-------+ + + + | Component | Value | Ref Range | Performed | Pathologist | | | | | At | Signature | + +-------+ + + + | Lactate | 1.2 | 0.5 - 2.2 | [facility] | | | | | mmol/L | [facility] | | | | | | MEDICAL | | | | | | CENTER - | | | | | | LABORATORY | | + +-------+ + + + + + | Specimen | + + | Blood | + + + + + + + | Performing | Address | City/State/Zipcode | Phone Number | | Organization | | | | + + + + + | [facility] | [address] | [place] | [phone] | | [facility] | | [address] | | | - LABORATORY | | | | + + + + + Troponin I (10/03/2017 11:29 AM PST) + + + + + + | Component | Value | Ref Range | Performed | Pathologist | | | | | At | Signature | + + + + + + | Troponin I | 12.50 ()Comment: | <0.06 ng/mL | [facility] | | | | Reference | | [facility] | | | | Ranges:0.00-0.06 = | | MEDICAL | | | | NORMAL>0.06 = | | CENTER - | | | | SUSPICIOUS FOR | | LABORATORY | | | | MYOCARDIAL DAMAGE NOTE: | | | | | | Values greater than 0.50 | | | | | | ng/mL have been shown | | | | | | to be strongly | | | | | | associated with acute | | | | | | myocardial infarction. | | | | | | The [employer] | | | | | | Cardiology (ACC) | | | | | | recommends a decision | | | | | | limit of 0.06 ng/mL for | | | | | | this assay. Results | | | | | | greater than 0.06 can | | | | | | reflect a pre-infarct | | | | | | acute coronary syndrome, | | | | | | but can also reflect | | | | | | myocardial necrosis or | | | | | | injury that is not due | | | | | | to coronary artery | | | | | | disease. Some of these | | | | | | causes are sepsis, | | | | | | hypocolemia, atrial | | | | | | fibrillation, heart | | | | | | failure, pulmonary | | | | | | embolism, myocarditis, | | | | | | myocardial contusion, | | | | | | and renal failure. The | | | | | | diagnosis of myocardial | | | | | | infarction should be | | | | | | based on a combination | | | | | | of the patient's | | | | | | clinical presentation | | | | | | and the clinical | | | | | | laboratory test results | | | | | | (especially serial | | | | | | troponin levels). | | | | | | Critical Result called | | | | | | to and read back by | | | | | | Kalli Kirk on | | | | | | 10/03/2017 at 12:37 by | | | | | | Miguel Cage. | | | | + + + + + + + + | Specimen | + + | Blood | + + + + + + + | Performing | Address | City/State/Zipcode | Phone Number | | Organization | | | | + + + + + | [facility] | [address] | [place] | [phone] | | [facility] | | [address] | | | - LABORATORY | | | | + + + + + B Type Natriuretic Peptide (10/03/2017 11:29 AM PST) + +---------+ + + + | Component | Value | Ref Range | Performed | Pathologist | | | | | At | Signature | + +---------+ + + + | BNP | 495 (H) | <100 pg/mL | [facility] | | | | | | [facility] | | | | | | MEDICAL | | | | | | CENTER - | | | | | | LABORATORY | | + +---------+ + + + + + | Specimen | + + | Blood | + + + + + + + | Performing | Address | City/State/Zipcode | Phone Number | | Organization | | | | + + + + + | [facility] | [address] | [place], [place] | [phone] | | [facility] | | [address] | | | - LABORATORY | | | | + + + + + Hepatic Function Panel (10/03/2017 11:29 AM PST) + +--------+ + + + | Component | Value | Ref Range | Performed | Pathologist | | | | | At | Signature | + +--------+ + + + | Bilirubin | 0.6 | 0.1 - 1.5 mg/dL | [facility] | | | Total | | | [facility] | | | | | | MEDICAL | | | | | | CENTER - | | | | | | LABORATORY | | + +--------+ + + + | Total | 6.5 | 6.0 - 7.8 g/dL | [facility] | | | Protein | | | [facility] | | | | | | MEDICAL | | | | | | CENTER - | | | | | | LABORATORY | | + +--------+ + + + | Albumin | 3.4 | 3.2 - 5.0 g/dL | [facility] | | | | | | [facility] | | | | | | MEDICAL | | | | | | CENTER - | | | | | | LABORATORY | | + +--------+ + + + | AST | 77 (H) | 10 - 42 U/L | [facility] | | | | | | [facility] | | | | | | MEDICAL | | | | | | CENTER - | | | | | | LABORATORY | | + +--------+ + + + | ALT | 29 | 6 - 45 U/L | [facility] | | | | | | [facility] | | | | | | MEDICAL | | | | | | CENTER - | | | | | | LABORATORY | | + +--------+ + + + | Alkaline | 89 | 40 - 110 U/L | [facility] | | | Phosphatase | | | [facility] | | | | | | MEDICAL | | | | | | CENTER - | | | | | | LABORATORY | | + +--------+ + + + | Globulin | 3.1 | 2.1 - 3.8 g/dL | [facility] | | | | | | [facility] | | | | | | MEDICAL | | | | | | CENTER - | | | | | | LABORATORY | | + +--------+ + + + | Albumin/Jillian | 1.1 | 0.8 - 2.0 | [facility] | | | bulin Ratio | | | [facility] | | | | | | MEDICAL | | | | | | CENTER - | | | | | | LABORATORY | | + +--------+ + + + | Bilirubin, | 0.20 | 0.00 - 0.20 | [facility] | | | Direct | | mg/dl | [facility] | | | | | | MEDICAL | | | | | | CENTER - | | | | | | LABORATORY | | + +--------+ + + + + + | Specimen | + + | Blood | + + + + + + + | Performing | Address | City/State/Zipcode | Phone Number | | Organization | | | | + + + + + | [facility] | [address] | [place] | [phone] | | [facility] | | [address] | | | - LABORATORY | | | | + + + + + Protime INR (10/03/2017 11:29 AM PST) + + + + + + | Component | Value | Ref Range | Performed | Pathologist | | | | | At | Signature | + + + + + + | Prothrombin | 14.1 (H) | 11.3 - 13.9 | [facility] | | | Time | | seconds | [facility] | | | | | | MEDICAL | | | | | | CENTER - | | | | | | LABORATORY | | + + + + + + | INR | 1.10Comment: Usual Oral | 0.90 - 1.10 | [facility] | | | | Anticoagulation Range: | | [facility] | | | | 2.0 - 3.0High | | MEDICAL | | | | Level Oral | | CENTER - | | | | Anticoagulation Range: | | LABORATORY | | | | 2.5 - 3.5 | | | | + + + + + + + + | Specimen | + + | Blood | + + + + + + + | Performing | Address | City/State/Zipcode | Phone Number | | Organization | | | | + + + + + | [facility] | [address] | [place] | [phone] | | [facility] | | [address] | | | - LABORATORY | | | | + + + + + Basic Metabolic Panel (10/03/2017 11:29 AM PST) + + + + + + | Component | Value | Ref Range | Performed | Pathologist | | | | | At | Signature | + + + + + + | Na | 139 | 136 - 149 | [facility] | | | | | mmol/L | [facility] | | | | | | MEDICAL | | | | | | CENTER - | | | | | | LABORATORY | | + + + + + + | K | 5.9 (H) | 3.5 - 5.1 | [facility] | | | | | mmol/L | [facility] | | | | | | MEDICAL | | | | | | CENTER - | | | | | | LABORATORY | | + + + + + + | Cl | 109 | 98 - 109 mmol/L | [facility] | | | | | | [facility] | | | | | | MEDICAL | | | | | | CENTER - | | | | | | LABORATORY | | + + + + + + | CO2 | 18 (L) | 24 - 31 mmol/L | [facility] | | | | | | [facility] | | | | | | MEDICAL | | | | | | CENTER - | | | | | | LABORATORY | | + + + + + + | Anion Gap | 12 | 3 - 16 mmol/L | [facility] | | | | | | [facility] | | | | | | MEDICAL | | | | | | CENTER - | | | | | | LABORATORY | | + + + + + + | Glucose | 165 (H) | 70 - 109 mg/dL | [facility] | | | | | | [facility] | | | | | | MEDICAL | | | | | | CENTER - | | | | | | LABORATORY | | + + + + + + | BUN | 25 (H) | 7 - 18 mg/dL | [facility] | | | | | | [facility] | | | | | | MEDICAL | | | | | | CENTER - | | | | | | LABORATORY | | + + + + + + | Creatinine | 1.55 (H) | 0.60 - 1.30 | [facility] | | | | | mg/dL | [facility] | | | | | | MEDICAL | | | | | | CENTER - | | | | | | LABORATORY | | + + + + + + | eGFR if not | 46 (L)Comment: | >=60 | [facility] | | | | GLOMERULAR FILTRATION | mL/min/1.73m2 | [facility] | | | [place]ONG[place]IAN | RATE,ESTIMATED | | MEDICAL | | | | mL/min/1.51j3Rarp than | | CENTER - | | | | 60 Chronic kidney | | LABORATORY | | | | disease,if found over a | | | | | | 3-month period.Less than | | | | | | 15 Kidney failureFor | | | | | | | | | | | | Americans,multiply the | | | | | | calculated GFR by 1.21. | | | | | | | | | | + + + + + + | Calcium | 8.3 | 8.3 - 10.5 | [facility] | | | | | mg/dL | [facility] | | | | | | MEDICAL | | | | | | CENTER - | | | | | | LABORATORY | | + + + + + + | BUN/Creatin | 16.1 | | [facility] | | | ine Ratio | | | [facility] | | | | | | [...] | + + + + + | [facility] | [address] | [place], [place] | [phone] | | [facility] | | [address] | | | - LABORATORY | | | | + + + + + CBC with Differential (10/03/2017 11:29 AM PST) + + + + + + | Component | Value | Ref Range | Performed | Pathologist | | | | | At | Signature | + + + + + + | WBC | 24.2 (H) | 4.0 - 11.0 K/uL | [facility] | | | | | | [facility] | | | | | | MEDICAL | | | | | | CENTER - | | | | | | LABORATORY | | + + + + + + | RBC | 5.56 | 4.30 - 5.70 | [facility] | | | | | M/uL | [facility] | | | | | | MEDICAL | | | | | | CENTER - | | | | | | LABORATORY | | + + + + + + | Hemoglobin | 16.8 | 13.5 - 18.0 | [facility] | | | | | g/dL | [facility] | | | | | | MEDICAL | | | | | | CENTER - | | | | | | LABORATORY | | + + + + + + | Hematocrit | 50.3 | 40.0 - 51.0 % | [facility] | | | | | | [facility] | | | | | | MEDICAL | | | | | | CENTER - | | | | | | LABORATORY | | + + + + + + | MCV | 90.5 | 83.0 - 101.0 fL | [facility] | | | | | | [facility] | | | | | | MEDICAL | | | | | | CENTER - | | | | | | LABORATORY | | + + + + + + | MCH | 30.1 | 28.0 - 35.0 pg | [facility] | | | | | | [facility] | | | | | | MEDICAL | | | | | | CENTER - | | | | | | LABORATORY | | + + + + + + | MCHC | 33.3 | 32.0 - 36.0 | [facility] | | | | | g/dL | [facility] | | | | | | MEDICAL | | | | | | CENTER - | | | | | | LABORATORY | | + + + + + + | RDW-CV | 16.2 (H) | <15.0 % | [facility] | | | | | | [facility] | | | | | | MEDICAL | | | | | | CENTER - | | | | | | LABORATORY | | + + + + + + | Platelet | 193 | 140 - 440 K/uL | [facility] | | | Count | | | [facility] | | | | | | MEDICAL | | | | | | CENTER - | | | | | | LABORATORY | | + + + + + + | MPV | 8.4 | fL | [facility] | | | | | | [facility] | | | | | | MEDICAL | | | | | | CENTER - | | | | | | LABORATORY | | + + + + + + | % | 91.0 (H) | 45.0 - 82.0 % | [facility] | | | Neutrophils | | | [facility] | | | | | | MEDICAL | | | | | | CENTER - | | | | | | LABORATORY | | + + + + + + | % | 2.6 (L) | 20.0 - 45.0 % | [facility] | | | Lymphocytes | | | [facility] | | | | | | MEDICAL | | | | | | CENTER - | | | | | | LABORATORY | | + + + + + + | % Monocytes | 6.0 | 4.0 - 12.0 % | [facility] | | | | | | [facility] | | | | | | MEDICAL | | | | | | CENTER - | | | | | | LABORATORY | | + + + + + + | % | 0.0 | 0.0 - 5.0 % | [facility] | | | Eosinophils | | | [facility] | | | | | | MEDICAL | | | | | | CENTER - | | | | | | LABORATORY | | + + + + + + | % Basophils | 0.4 | 0.0 - 1.0 % | [facility] | | | | | | [facility] | | | | | | MEDICAL | | | | | | CENTER - | | | | | | LABORATORY | | + + + + + + | Absolute | 22.00 (H) | 1.80 - 8.50 | [facility] | | | Neutrophils | | K/uL | [facility] | | | | | | MEDICAL | | | | | | CENTER - | | | | | | LABORATORY | | + + + + + + | Absolute | 0.60 | 0.60 - 3.20 | [facility] | | | Lymphocytes | | K/uL | [facility] | | | | | | MEDICAL | | | | | | CENTER - | | | | | | LABORATORY | | + + + + + + | Absolute | 1.40 (H) | 0.00 - 1.00 | [facility] | | | Monocytes | | K/uL | [facility] | | | | | | MEDICAL | | | | | | CENTER - | | | | | | LABORATORY | | + + + + + + | Absolute | 0.00 | 0.00 - 0.40 | [facility] | | | Eosinophils | | K/uL | [facility] | | | | | | MEDICAL | | | | | | CENTER - | | | | | | LABORATORY | | + + + + + + | Absolute | 0.10 | 0.00 - 0.10 | [facility] | | | Basophils | | K/uL | [facility] | | | | | | MEDICAL [...] [facility] | [address] | [place] | [phone] | | [facility] | | [address] | | | - LABORATORY | | | | + + + + + ECHO Complete (10/03/2017 11:18 AM PST) + +-------+ + + + | Component | Value | Ref Range | Performed | Pathologist | | | | | At | Signature | + +-------+ + + + | LVEF-TTE | 39 | | [facility] | | | TRANSTHORAC | | | | | | IC ECHO | | | | | + +-------+ + + + + + | Specimen | + + | | + + + +-- + | Narrative | P erformed At | + +-- + | Transthoracic | [facility] | | Echocardiography Report (TTE) Demographics Patient Name MIKE | | | RON Room Number 458 J Patient | | | [id number] Date of Study 10/03/2017 | | | Number Visit Number [id number] | | | Referring Physician BENEDICT RAYGOZA Number Date of | | | 1955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 | | | Procedure dateDate: 10/03/2017Start: 10:38 AM Technical Quality: | | | Limited visualizationStudy Location: ICU Patient Status: | | | RoutineHeight: 70 inchesWeight: 213.85 poundsBSA: 2.15 m^2BMI: 30.68 | | | kg/m^2 ConclusionsSummaryThe number of aortic valve leaflets cannot be | | | identified.The left atrium is mildly dilated.Normal left ventricular | | | cavity size.Mild concentric left ventricular hypertrophy.Ejection | | | fraction is visually estimated at 40%.Thinning and severe hypokinesis | | | distal anterior, anterior septal, and apicalsegmentsAortic root | | | dimension within normal limits.Mild mitral regurgitation present.No | | | evidence of any pericardial effusion.The pulmonic valve was not well | | | visualized.Normal right atrial size.Normal right ventricular size and | | | function.Structurally normal tricuspid valve without significant | | | stenosis orregurgitation.Insufficient amount of tricuspid | | | regurgitation for estimation of pulmonaryartery pressures.When | | | compared with images of previous echo 06/04/17, no significant changes. | | | | | | Signature | | | Electronically signed by DELMER GOMEZ MD, | | | [facility](Interpreting physician) on 10/03/2017 12:59 | | | PM | | | -------- FindingsMitral ValveMild mitral regurgitation present.Aortic | | | ValveThe number of aortic valve leaflets cannot be | | | identified.Tricuspid ValveStructurally normal tricuspid valve without | | | significant stenosis orregurgitation.Insufficient amount of tricuspid | | | regurgitation for estimation of pulmonaryartery pressures.Pulmonic | | | ValveThe pulmonic valve was not well visualized.Left AtriumThe left | | | atrium is mildly dilated.Left VentricleNormal left ventricular cavity | | | size.Mild concentric left ventricular hypertrophy.Ejection fraction is | | | visually estimated at 40%.Thinning and severe hypokinesis distal | | | anterior, anterior septal, and apicalsegmentsRight AtriumNormal right | | | atrial size.Right VentricleNormal right ventricular size and | | | function.Pericardial EffusionNo evidence of any pericardial effusion. | | | MiscellaneousAortic root dimension within normal limits. Valves | | | Mitral Valve Tissue Doppler Septal e' Velocity: 0.07 m/s Aortic | | | Valve Structures Left Atrium LA A/P Dimension: 4.04 cm | | | LA Area: 15.65 cm^2 LA Vol/BSA Index: 20 mL/m^2 | | | LA Volume: 42.65 ml | | | EF [id number]% Left | | | Ventricle Diastolic Dimension: 5.92 cm Septum Diastolic: 1.14 cm PW | | | Diastolic: 1.1 cm EF Calculated: 39% Miscellaneous Aorta Aortic | | | Root: 3.38 cm Ascending Aorta: 3.33 cm | | |Structurally normal tricuspid valve without significant stenosis or | | |regurgitation. | | |Insufficient amount of tricuspid regurgitation for estimation of pulmonary | | |artery pressures. | | |When compared with images of previous echo 06/04/17, no significant changes. | | | | | |Signature | | | | | | Electronically signed by DELMER GOMEZ MD, [facility](Interpreting | | | physician) on 10/03/2017 12:59 PM | | | | | | | | |Findings | | |Mitral Valve | | |Mild mitral regurgitation present. | | |Aortic Valve | | |The number of aortic valve leaflets cannot be identified. | | |Tricuspid Valve | | |Structurally normal tricuspid valve without significant stenosis or | | |regurgitation. | | |Insufficient amount of tricuspid regurgitation for estimation of pulmonary | | |artery pressures. | | |Pulmonic Valve | | |The pulmonic valve was not well visualized. | | |Left Atrium | | |The left atrium is mildly dilated. | | |Left Ventricle | | |Normal left ventricular cavity size. | | |Mild concentric left ventricular hypertrophy. | | |Ejection fraction is visually estimated at 40%. | | |Thinning and severe hypokinesis distal anterior, anterior septal, and apical | | |segments | | |Right Atrium | | |Normal right atrial size. | | |Right Ventricle | | |Normal right ventricular size and function. | | |Pericardial Effusion | | |No evidence of any pericardial effusion. | | | | | |Miscellaneous | | |Aortic root dimension within normal limits. | | | | | |Valves | | | | | | Mitral Valve | | | | | | Tissue Doppler | | | | | | Septal e' Velocity: 0.07 m/s | | | | | | Aortic Valve | | | | | |Structures | | | | | | Left Atrium | | | | | | LA A/P Dimension: 4.04 cm LA Area: 15.65 cm^2 | | | LA Vol/BSA Index: 20 mL/m^2 LA Volume: 42.65 ml | | | EF Iysoxvtov87% | | | | | | Left Ventricle | | | | | | Diastolic Dimension: 5.92 cm | | | Septum Diastolic: 1.14 cm | | | PW Diastolic: 1.1 cm | | | EF Calculated: 39% | | | | | | Miscellaneous | | | | | | Aorta | | | | | | Aortic Root: 3.38 cm | | | Ascending Aorta: 3.33 cm | | | | | + +-- + + + | Procedure Note | + + | Sebastian, Rad Results In - 10/03/2017 1:00 PM [facility] Transthoracic Echocardiography Report | | (TTE) Demographics Patient Name MIKE VELASQUEZ Room Number 458 | | J Patient [id number] Date of Study 10/03/2017 Number Visit Number | | [id number] Referring Physician BENEDICT RAYGOZA Number | | Date of 1955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 DELMER GOMEZ MD, | | Utility [employer] [facility] Gender Male 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 TechnicianProcedureType of Study TTE procedure: ECHO Complete.Procedure | | dateDate: 10/03/2017Start: 10:38 AMTechnical Quality: Limited visualizationStudy | | Location: ICUPatient Status: RoutineHeight: 70 inchesWeight: 213.85 poundsBSA: 2.15 | | m^2BMI: 30.68 kg/m^2ConclusionsSummaryThe number of aortic valve leaflets cannot be | | identified.The left atrium is mildly dilated.Normal left ventricular cavity size.Mild | | concentric left ventricular hypertrophy.Ejection fraction is visually estimated at | | 40%.Thinning and severe hypokinesis distal anterior, anterior septal, and | | apicalsegmentsAortic root dimension within normal limits.Mild mitral regurgitation | | present.No evidence of any pericardial effusion.The pulmonic valve was not well | | visualized.Normal right atrial size.Normal right ventricular size and | | function.Structurally normal tricuspid valve without significant stenosis | | orregurgitation.Insufficient amount of tricuspid regurgitation for estimation of | | pulmonaryartery pressures.When compared with images of previous echo 06/04/17, no | | significant | | changes.Signature | | ----- Electronically signed by DELMER GOMEZ MD, [facility](Interpreting physician) on | | 10/03/2017 12:59 | | PM FindingsMi | | tral ValveMild mitral regurgitation present.Aortic ValveThe number of aortic valve | | leaflets cannot be identified.Tricuspid ValveStructurally normal tricuspid valve without | | significant stenosis orregurgitation.Insufficient amount of tricuspid regurgitation for | | estimation of pulmonaryartery pressures.Pulmonic ValveThe pulmonic valve was not well | | visualized.Left AtriumThe left atrium is mildly dilated.Left VentricleNormal left | | ventricular cavity size.Mild concentric left ventricular hypertrophy.Ejection fraction | | is visually estimated at 40%.Thinning and severe hypokinesis distal anterior, anterior | | septal, and apicalsegmentsRight AtriumNormal right atrial size.Right VentricleNormal | | right ventricular size and function.Pericardial EffusionNo evidence of any pericardial | | effusion.MiscellaneousAortic root dimension within normal limits.Valves Mitral Valve | | Tissue Doppler Septal e' Velocity: 0.07 m/s Aortic ValveStructures Left Atrium LA A/P | | Dimension: 4.04 cm LA Area: 15.65 cm^2 LA Vol/BSA Index: 20 mL/m^2 | | LA Volume: 42.65 ml EF | | Ccaxexmdq49% Left Ventricle Diastolic Dimension: 5.92 cm Septum Diastolic: 1.14 cm PW | | Diastolic: 1.1 cm EF Calculated: 39% Miscellaneous Aorta Aortic Root: 3.38 cm Ascending | | Aorta: 3.33 cm | |The left atrium is mildly dilated. | |Normal left ventricular cavity size. | |Mild concentric left ventricular hypertrophy. | |Ejection fraction is visually estimated at 40%. | |Thinning and severe hypokinesis distal anterior, anterior septal, and apical | |segments | |Aortic root dimension within normal limits. | |Mild mitral regurgitation present. | |No evidence of any pericardial effusion. | |The pulmonic valve was not well visualized. | |Normal right atrial size. | |Normal right ventricular size and function. | |Structurally normal tricuspid valve without significant stenosis or | |regurgitation. | |Insufficient amount of tricuspid regurgitation for estimation of pulmonary | |artery pressures. | |When compared with images of previous echo 06/04/17, no significant changes. | | | |Signature | | | | Electronically signed by DELMER GOMEZ MD, [facility](Interpreting | | physician) on 10/03/2017 12:59 PM | | | | | |Findings | |Mitral Valve | |Mild mitral regurgitation present. | |Aortic Valve | |The number of aortic valve leaflets cannot be identified. | |Tricuspid Valve | |Structurally normal tricuspid valve without significant stenosis or | |regurgitation. | |Insufficient amount of tricuspid regurgitation for estimation of pulmonary | |artery pressures. | |Pulmonic Valve | |The pulmonic valve was not well visualized. | |Left Atrium | |The left atrium is mildly dilated. | |Left Ventricle | |Normal left ventricular cavity size. | |Mild concentric left ventricular hypertrophy. | |Ejection fraction is visually estimated at 40%. | |Thinning and severe hypokinesis distal anterior, anterior septal, and apical | |segments | |Right Atrium | |Normal right atrial size. | |Right Ventricle | |Normal right ventricular size and function. | |Pericardial Effusion | |No evidence of any pericardial effusion. | | | |Miscellaneous | |Aortic root dimension within normal limits. [...] LA Volume: 42.65 ml | | EF Hajxtfyex78% | | | | Left Ventricle | | | | Diastolic Dimension: 5.92 cm | | Septum Diastolic: 1.14 cm | | PW Diastolic: 1.1 cm | | EF Calculated: 39% | | | | Miscellaneous | | | | Aorta | | | | Aortic Root: 3.38 cm | | Ascending Aorta: 3.33 cm | + + + +---------+ + + | Performing | Address | City/State/Zipcode | Phone Number | | Organization | | | | + +---------+ + + | [facility] | | | | + +---------+ + + Blood Gas, Arterial (10/03/2017 10:40 AM PST) + + + + + + | Component | Value | Ref Range | Performed | Pathologist | | | | | At | Signature | + + + + + + | pH Temp | 7.21 | | [facility] | | | Corrected, | | | [facility] | | | Arterial | | | MEDICAL | | | | | | CENTER - | | | | | | LABORATORY | | + + + + + + | pCO2 Temp | 55 | mmHg | [facility] | | | Corrected, | | | [facility] | | | Arterial | | | MEDICAL | | | | | | CENTER - | | | | | | LABORATORY | | + + + + + + | pO2 Temp | 100 | mmHg | [facility] | | | Corrected, | | | [facility] | | | Arterial | | | MEDICAL | | | | | | CENTER - | | | | | | LABORATORY | | + + + + + + | pH, | 7.21 (L) | 7.35 - 7.45 | [facility] | | | Arterial | | | [facility] | | | | | | MEDICAL | | | | | | CENTER - | | | | | | LABORATORY | | + + + + + + | pCO2, | 55 (H) | 35 - 45 mm Hg | [facility] | | | Arterial | | | [facility] | | | | | | MEDICAL | | | | | | CENTER - | | | | | | LABORATORY | | + + + + + + | pO2, | 100 | >=60 mm Hg | [facility] | | | Arterial | | | [facility] | | | | | | MEDICAL | | | | | | CENTER - | | | | | | LABORATORY | | + + + + + + | HCO3, | 21.1 | 18.0 - 23.0 | [facility] | | | Arterial | | mmol/L | [facility] | | | | | | MEDICAL | | | | | | CENTER - | | | | | | LABORATORY | | + + + + + + | Base | <-5.0 (L) | -2.0 - 2.0 | [facility] | | | Excess, | | mmol/L | [facility] | | | Arterial | | | MEDICAL | | | | | | CENTER - | | | | | | LABORATORY | | + + + + + + | O2 | 96 | 95 - 98 % | [facility] | | | Saturation, | | | [facility] | | | Arterial | | | MEDICAL | | | | | | CENTER - | | | | | | LABORATORY | | + + + + + + | Hemoglobin, | 16.7 | g/dL | [facility] | | | Arterial | | | [facility] | | | | | | MEDICAL | | | | | | CENTER - | | | | | | LABORATORY | | + + + + + + | Oxyhemoglob | 94.3 | 90.0 - 100.0 % | [facility] | | | in, | | | [facility] | | | Arterial | | | MEDICAL | | | | | | CENTER - | | | | | | LABORATORY | | + + + + + + | Methemoglob | 1.2 | 0.0 - 1.5 % | [facility] | | | in, | | | [facility] | | | Arterial | | | MEDICAL | | | | | | CENTER - | | | | | | LABORATORY | | + + + + + + | Carboxyhemo | 1.0 | 0.0 - 1.5 % | [facility] | | | globin, | | | [facility] | | | Arterial | | | MEDICAL | | | | | | CENTER - | | | | | | LABORATORY | | + + + + + + | FiO2 | 100.0 | % | [facility] | | | | | | [facility] | | | | | | MEDICAL [...] | + + + + + | [facility] | [address] | [place] | [phone] | | [facility] | | [address] | | | - LABORATORY | | | | + + + + + Culture, MRSA (10/03/2017 10:39 AM PST) + + + + + + | Component | Value | Ref Range | Performed | Pathologist | | | | | At | Signature | + + + + + + | Culture | Negative for MRSA by | | [facility] | | | | chromogenic agar method | | [facility] | | | | | | MEDICAL | | | | | | CENTER - | | | | | | LABORATORY | | + + + + + + + + | Specimen | + + | Stool - Stool | | specimen (specimen) | + + + + + + + | Performing | Address | City/State/Zipcode | Phone Number | | Organization | | | | + + + + + | [facility] | [address] | [place] | [phone] | | [facility] | | [address] | | | - LABORATORY | | | | + + + + + Culture, Respiratory, Lower, Smear (10/03/2017 10:39 AM PST) + + + + + + | Component | Value | Ref Range | Performed | Pathologist | | | | | At | Signature | + + + + + + | Culture | 2+ Usual Respiratory | | [facility] | | | | Thanh | | [facility] | | | | | | MEDICAL | | | | | | CENTER - | | | | | | LABORATORY | | + + + + + + | Culture | 1+ Radha albicans | | [facility] | | | | | | [facility] | | | | | | MEDICAL | | | | | | CENTER - | | | | | | LABORATORY | | + + + + + + | Gram Stain | 1+ White Blood Cells | | [facility] | | | Result | | | [facility] | | | | | | MEDICAL | | | | | | CENTER - | | | | | | LABORATORY | | + + + + + + | Gram Stain | 1+ Epithelial cells | | [facility] | | | Result | | | [facility] | | | | | | MEDICAL | | | | | | CENTER - | | | | | | LABORATORY | | + + + + + + | Gram Stain | 2+ Gram positive cocci | | [facility] | | | Result | in chains | | [facility] | | | | | | MEDICAL | | | | | | CENTER - | | | | | | LABORATORY | | + + + + + + | Gram Stain | 2+ Gram positive cocci | | [facility] | | | Result | in clusters | | [facility] | | | | | | MEDICAL | | | | | | CENTER - | | | | | | LABORATORY | | + + + + + + + + | Specimen | + + | Respiratory - | | Coughed sputum | | specimen (specimen) | + + + + + + + | Performing | Address | City/State/Zipcode | Phone Number | | Organization | | | | + + + + + | [facility] | [address] | [place] | [phone] | | [facility] | | [address] | | | - LABORATORY | | | | + + + + + Influenza A and B RNA, NAAT (10/03/2017 10:39 AM PST) + + + + + + | Component | Value | Ref Range | Performed | Pathologist | | | | | At | Signature | + + + + + + | Influenza A | Negative | Negative | [facility] | | | PCR | | | [facility] | | | | | | MEDICAL | | | | | | CENTER - | | | | | | LABORATORY | | + + + + + + | Influenza B | Positive (A) | Negative | [facility] | | | PCR | | | [facility] | | | | | | MEDICAL | | | | | | CENTER - | | | | | | LABORATORY | | + + + + + + + + | Specimen | + + | Respiratory - Entire | | nasopharynx (body | | structure) | + + + + + + + | Performing | Address | City/State/Zipcode | Phone Number | | Organization | | | | + + + + + | [facility] | [address] | [place] | [phone] | | [facility] | | [address] | | | - LABORATORY | | | | + + + + + Shaji Novak (10/03/2017 10:39 AM PST) + + + + + + | Component | Value | Ref Range | Performed | Pathologist | | | | | At | Signature | + + + + + + | Campylobact | Negative | Negative | [facility] | | | er AG, Qual | | | [facility] | | | | | | MEDICAL | | | | | | CENTER - | | | | | | LABORATORY | | + + + + + + + + | Specimen | + + | Stool - Stool | | specimen (specimen) | + + + + + + + | Performing | Address | City/State/Zipcode | Phone Number | | Organization | | | | + + + + + | [facility] | [address] | [place] | [phone] | | [facility] | | [address] | | | - LABORATORY | | | | + + + + + Culture, Stool Result (10/03/2017 10:39 AM PST) + + + + + + | Component | Value | Ref Range | Performed | Pathologist | | | | | At | Signature | + + + + + + | Culture | No Salmonella, Shigella, | | [facility] | | | | Aeromonas, Plesiomonas, | | [facility] | | | | E. coli O157 or | | MEDICAL | | | | Yersinia isolated. | | CENTER - | | | | | | LABORATORY | | + + + + + + | Culture | 1+ Usual FloraComment: | | [facility] | | | | Consistent with usual | | [facility] | | | | enteric thanh. | | MEDICAL | | | | | | CENTER - | | | | | | LABORATORY | | + + + + + + + + | Specimen | + + | Stool - Stool | | specimen (specimen) | + + + + + + + | Performing | Address | City/State/Zipcode | Phone Number | | Organization | | | | + + + + + | [facility] | [address] | [place] | [phone] | | [facility] | | [address] | | | - LABORATORY | | | | + + + + + Shigatoxin 1 and 2 (10/03/2017 10:39 AM PST) + + + + + + | Component | Value | Ref Range | Performed | Pathologist | | | | | At | Signature | + + + + + + | Shigatoxin | Negative | Negative | [facility] | | | 1 | | | [facility] | | | | | | MEDICAL | | | | | | CENTER - | | | | | | LABORATORY | | + + + + + + | Shigatoxin | Negative | Negative | [facility] | | | 2 | | | [facility] | | | | | | MEDICAL | | | | | | CENTER - | | | | | | LABORATORY | | + + + + + + + + | Specimen | + + | Stool - Stool | | specimen (specimen) | + + + + + + + | Performing | Address | City/State/Zipcode | Phone Number | | Organization | | | | + + + + + | [facility] | [address] | [place] | [phone] | | [facility] | | [address] | | | - LABORATORY | | | | + + + + + Clostridium difficile A and B EIA (10/03/2017 10:39 AM PST) + + + + + + | Component | Value | Ref Range | Performed | Pathologist | | | | | At | Signature | + + + + + + | Clostridium | NegativeComment: | Negative | [facility] | | | Difficile | Negative for toxigenic | | [facility] | | | GDH Antigen | Clostridium difficile | | MEDICAL | | | | | | CENTER - | | | | | | LABORATORY | | + + + + + + | C. Diff | Negative | Negative | [facility] | | | Toxin A/B | | | [facility] | | | EIA | | | MEDICAL | | | | | | CENTER - | | | | | | LABORATORY | | + + + + + + + + | Specimen | + + | Stool - Stool | | specimen (specimen) | + + + + + + + | Performing | Address | City/State/Zipcode | Phone Number | | Organization | | | | + + + + + | [facility] | [address] | [place] | [phone] | | [facility] | | [address] | | | - LABORATORY | | | | + + + + + Ova and Parasite Examination (10/03/2017 10:39 AM PST) + + + + + + | Component | Value | Ref Range | Performed | Pathologist | | | | | At | Signature | + + + + + + | Ova + | CommentComment: No ova, | | [facility] | | | Parasite | cysts, or parasites | | LAB [facility] | | | Exam | seen.One negative | | - [facility] | | | | specimen does not rule | | | | | | out the possibility of | | | | | | aparasitic | | | | | | infection.These results | | | | | | were obtained using wet | | | | | | preparation(s) and | | | | | | trichromestained smear. | | | | | | This test does not | | | | | | include testing for | | | | | | Cryptosporidiumparvum, | | | | | | Cyclospora, or | | | | | | Microsporidia. | | | | + + + + + + + + | Specimen | + + | Stool - Stool | | specimen (specimen) | + + + + + | Narrative | Performed At | + + + | Performed at: [address] - [employer] | REFERENCE LAB | | [id number] Vascular Surgery Physician: Yesenia Gee MD, Phone: [phone] | [facility] | + + + + + + + + | Performing | Address | City/State/Zipcode | Phone Number | | Organization | | | | + + + + + | REFER[facility] LAB | [address] | [place], [place] | [phone] | | [facility] | [facility] | [address] | | + + + + + Fecal leukocytes (10/03/2017 10:39 AM PST) + + + + + + | Component | Value | Ref Range | Performed | Pathologist | | | | | At | Signature | + + + + + + | Lactoferrin | Negative | Negative | [facility] | | | , Qual | | | [facility] | | | | | | MEDICAL | | | | | | CENTER - | | | | | | LABORATORY | | + + + + + + + + | Specimen | + + | Stool - Stool | | specimen (specimen) | + + + + + + + | Performing | Address | City/State/Zipcode | Phone Number | | Organization | | | | + + + + + | [facility] | [address] | [place] | [phone] | | [facility] | | [address] | | | - LABORATORY | | | | + + + + + Urinalysis with Microscopic with Culture if Indicated (10/03/2017 10:38 AM PST) + + + + + + | Component | Value | Ref Range | Performed | Pathologist | | | | | At | Signature | + + + + + + | Color, | Straw | Light Yellow, | [facility] | | | Urine | | Yellow, Straw | [facility] | | | | | | MEDICAL | | | | | | CENTER - | | | | | | LABORATORY | | + + + + + + | Clarity | Clear | Clear | [facility] | | | | | | [facility] | | | | | | MEDICAL | | | | | | CENTER - | | | | | | LABORATORY | | + + + + + + | pH, Urine | 5.0 | 5.0 - 8.0 | [facility] | | | | | | [facility] | | | | | | MEDICAL | | | | | | CENTER - | | | | | | LABORATORY | | + + + + + + | Specific | 1.006 | 1.001 - 1.030 | [facility] | | | [place], | | | [facility] | | | Urine | | | MEDICAL | | | | | | CENTER - | | | | | | LABORATORY | | + + + + + + | Protein, | Negative | Negative | [facility] | | | Urine | | | [facility] | | | | | | MEDICAL | | | | | | CENTER - | | | | | | LABORATORY | | + + + + + + | Blood, | Small (A) | Negative | [facility] | | | Urine | | | [facility] | | | | | | MEDICAL | | | | | | CENTER - | | | | | | LABORATORY | | + + + + + + | Glucose, | Negative | Negative | [facility] | | | Urine | | | [facility] | | | | | | MEDICAL | | | | | | CENTER - | | | | | | LABORATORY | | + + + + + + | Ketones, | Negative | Negative | [facility] | | | Urine | | | [facility] | | | | | | MEDICAL | | | | | | CENTER - | | | | | | LABORATORY | | + + + + + + | Bilirubin, | Negative | Negative | [facility] | | | Urine | | | [facility] | | | | | | MEDICAL | | | | | | CENTER - | | | | | | LABORATORY | | + + + + + + | Nitrite, | Negative | Negative | [facility] | | | Urine | | | [facility] | | | | | | MEDICAL | | | | | | CENTER - | | | | | | LABORATORY | | + + + + + + | Leukocyte | Negative | Negative | [facility] | | | Esterase, | | | [facility] | | | Urine | | | MEDICAL | | | | | | CENTER - | | | | | | LABORATORY | | + + + + + + | Urobilinoge | Negative | 0.2 mg/dL, 1.0 | [facility] | | | n, Urine | | mg/dL, Negative | [facility] | | | | | | MEDICAL | | | | | | CENTER - | | | | | | LABORATORY | | + + + + + + | White Blood | 2-5 (A) | 0 - 2 /HPF | [facility] | | | Cells, | | | [facility] | | | Urine | | | MEDICAL | | | | | | CENTER - | | | | | | LABORATORY | | + + + + + + | Red Blood | 5-10 (A) | 0 - 2 /HPF | [facility] | | | Cells, | | | [facility] | | | Urine | | | MEDICAL | | | | | | CENTER - | | | | | | LABORATORY | | + + + + + + | Squamous | 0-2 | 0 - 2 /LPF | [facility] | | | Epithelial | | | [facility] | | | Cells, | | | MEDICAL | | | Urine | | | CENTER - | | | | | | LABORATORY | | + + + + + + | Bacteria, | Negative | Negative /HPF | [facility] | | | Urine | | | [facility] | | | | | | MEDICAL | | | | | | CENTER - | | | | | | LABORATORY | | + + + + + + | Mucus, | Present (A) | Negative /LPF | [facility] | | | Urine | | | [facility] | | | | | | MEDICAL | | | | | | CENTER - | | | | | | LABORATORY | | + + + + + + | Hyaline | 0-2 | 0 - 2 /LPF | [facility] | | | Casts, | | | [facility] | | | Urine | | | MEDICAL | | | [...] + + | [facility] | [address] | [place] | [phone] | | [facility] | | [address] | | | - LABORATORY | | | | + + + + + LABS - EXTERNAL SCAN (10/03/2017 12:00 AM PST) + + + | Narrative | Performed At | + + + | Ordered by an | | | unspecified provider. | | + + + IMAGING REPORT - EXTERNAL SCAN (10/03/2017 12:00 AM PST) + + + | Narrative | Performed At | + + + | Ordered by an | | | unspecified provider. | | + + + IMAGING REPORT - EXTERNAL SCAN (10/03/2017 12:00 AM PST) + + + | Narrative | Performed At | + + + | Ordered by an | | | unspecified provider. | | + + + ECG - EXTERNAL SCAN (10/03/2017 12:00 AM PST) + + + | Narrative | Performed At | + + + | Ordered by an | | | unspecified provider. | | + + + documented in this encounter Visit Diagnoses Not on filedocumented in this encounter Admitting Diagnoses + + | Diagnosis | + + | Pulmonary edema Pulmonary congestion and hypostasis | + + documented in this encounter Administered Medications + +--------+ +-------+------+------+ | Medication Order | MAR | Action | Dose | Rate | Site | | | Action | Date | | | | + +--------+ +-------+------+------+ | albuterol-ipratropium (DUONEB) | Given | 10/10/19 | 3 mLs | | | | 2.5-0.5 mg/3 mL nebulizer | | 18 9:37 | | | | | solution 3 mL 3 mL, | | AM PST | | | | | Nebulization, RT Q4H, First dose | | | | | | | on Thu10/05/17 at 2000 | | | | | | + +--------+ +-------+------+------+ +-------+ +-------+---+---+ | Given | 10/10/19 | 3 mLs | | | | | 18 4:58 | | | | | | AM PST | | | | +-------+ +-------+---+---+ | Given | 10/10/19 | 3 mLs | | | | | 18 12:48 | | | | | | AM PST | | | | +-------+ +-------+---+---+ +---+---+ | | | +---+---+ + +-------+ +--------+---+---+ | amiodarone (PACERONE) tablet | Given | 10/10/19 | 200 mg | | | | 200 mg 200 mg, Oral, DAILY, | | 18 9:08 | | | | | First dose (after last | | AM PST | | | | | modification) on 10/10/17 at | | | | | | | 0900 | | | | | | + +-------+ +--------+---+---+ +---+---+ | | | +---+---+ + +-------+ +-------+---+---+ | aspirin chewable tablet 81 mg | Given | 10/10/19 | 81 mg | | | | 81 mg, Per OG Tube, DAILY, First | | 18 9:08 | | | | | dose on 10/03/17 at 1015 | | AM PST | | | | + +-------+ +-------+---+---+ +-------+ +-------+---+---+ | Given | 10/09/19 | 81 mg | | | | | 18 9:08 | | | | | | AM PST | | | | +-------+ +-------+---+---+ | Given | 10/08/19 | 81 mg | | | | | 18 8:58 | | | | | | AM PST | | | | +-------+ +-------+---+---+ +---+---+ | | | +---+---+ + +-------+ +-------+---+---+ | atorvaSTATin (LIPITOR) tablet | Given | 10/10/19 | 40 mg | | | | 40 mg 40 mg, Per OG Tube, DAILY, | | 18 9:08 | | | | | First dose on 10/03/17 at | | AM PST | | | | | 1015 | | | | | | + +-------+ +-------+---+---+ +-------+ +-------+---+---+ | Given | 10/09/19 | 40 mg | | | | | 18 9:08 | | | | | | AM PST | | | | +-------+ +-------+---+---+ | Given | 10/08/19 | 40 mg | | | | | 18 8:59 | | | | | | AM PST | | | | +-------+ +-------+---+---+ +---+---+ | | | +---+---+ + +-------+ + +---+---+ | carvedilol (COREG) tablet 3.125 | Given | 10/10/19 | 3.125 mg | | | | mg 3.125 mg, Oral, 2 TIMES | | 18 9:08 | | | | | DAILY WITH BREAKFAST & DINNER, | | AM PST | | | | | First dose on [facility] 10/08/17 at 0915 | | | | | | + +-------+ + +---+---+ +-------+ + +---+---+ | Given | 10/09/19 | 3.125 mg | | | | | 18 5:01 | | | | | | PM PST | | | | +-------+ + +---+---+ | Given | 10/09/19 | 3.125 mg | | | | | 18 7:40 | | | | | | AM PST | | | | +-------+ + +---+---+ +---+---+ | | | +---+---+ + +---------+ +-----+-------+---+ | cefTRIAXone (ROCEPHIN) 2 g in | New Bag | 02/03/20 | 2 g | 100 | | | sodium chloride 0.9% 50 mL IVPB | | 18 9:08 | | mL/hr | | | 2 g, Intravenous, Administer over | | AM PST | | | | | 30 Minutes, EVERY 24 HOURS | | | | | | | (Daily), First dose on Sun | | | | | | | 10/04/17 at 0900, Activate system | | | | | | | and mix before use., Indications: | | | | | | | Community Acquired Pneumonia | | | | | | + +---------+ +-----+-------+---+ +---------+ +-----+-------+ + | New Bag | 10/09/19 | 2 g | 100 | | | | 18 10:21 | | mL/hr | | | | AM PST | | | | +---------+ +-----+-------+ + | New Bag | 10/08/19 | 2 g | 100 | Left Arm | | | 18 9:37 | | mL/hr | | | | AM PST | | | | +---------+ +-----+-------+ + +---+---+ | | | +---+---+ + +-------+ +-------+---+---+ | clopidogrel (PLAVIX) tablet 75 | Given | 10/10/19 | 75 mg | | | | mg 75 mg, Per OG Tube, DAILY, | | 18 9:08 | | | | | First dose on 10/03/17 at 1015 | | AM PST | | | | + +-------+ +-------+---+---+ +-------+ +-------+---+---+ | Given | 10/09/19 | 75 mg | | | | | 18 9:08 | | | | | | AM PST | | | | +-------+ +-------+---+---+ | Given | 10/08/19 | 75 mg | | | | | 18 8:57 | | | | | | AM PST | | | | +-------+ +-------+---+---+ + +---+ | | | + +---+ | dextrose 50% injection 12.5 g | | | 12.5 g, Intravenous, PRN, Low | | | Blood Sugar, Starting 10/03/17 | | | at 0958 | | + +---+ | | | + +---+ + +-------+ +--------+---+ + | heparin 5,000 units/mL | Given | 10/10/19 | 5,000 | | Abdomen- | | injection 5,000 Units 5,000 | | 18 9:08 | Units | | LLQ | | Units, Subcutaneous, EVERY 12 | | AM PST | | | | | HOURS (2 times per day), First | | | | | | | dose on Thu10/07/17 at 2100 | | | | | | + +-------+ +--------+---+ + +-------+ +--------+---+ + | Given | 10/09/19 | 5,000 | | Abdomen- | | | 18 8:44 | Units | | RLQ | | | PM PST | | | | +-------+ +--------+---+ + | Given | 10/09/19 | 5,000 | | Abdomen- | | | 18 9:08 | Units | | RUQ | | | AM PST | | | | +-------+ +--------+---+ + +---+---+ | | | +---+---+ + +-------+ +---------+---+---+ | HYDROcodone-acetaminophen | Given | 10/10/19 | 2 | | | | (NORCO) 5-325 mg per tablet 1-2 | | 18 1:05 | tablets | | | | tablet 1-2 tablet, Oral, EVERY 4 | | PM PST | | | | | HOURS PRN, Pain, Pain, Starting | | | | | | | 10/05/17 at 2133 | | | | | | + +-------+ +---------+---+---+ +-------+ +---------+---+---+ | Given | 10/10/19 | 2 | | | | | 18 9:07 | tablets | | | | | AM PST | | | | +-------+ +---------+---+---+ | Given | 10/10/19 | 2 | | | | | 18 4:51 | tablets | | | | | [...] scheduled: AC, | | | NPO, Daytime 9499-3263 Use NIGHT | | | DOSE for doses scheduled: | | | HS, 3AM, Nighttime 7584-4572, | | + +---+ | | | + +---+ + +-------+ +--------+---+---+ | iohexol (OMNIPAQUE 350) 350 | Given | 10/03/19 | 50 mLs | | | | mg/mL injection ONCE PRN, | | 18 3:07 | | | | | Starting 10/03/17 at 1507, | | PM PST | | | | | Intra-op | | | | | | + +-------+ +--------+---+---+ +---+---+ | | | +---+---+ + +-------+ +-------+---+---+ | lidocaine 1% injection ONCE | Given | 10/03/19 | 2 mLs | | | | PRN, Starting 10/03/17 at | | 18 2:37 | | | | | 1437, Intra-op | | PM PST | | | | + +-------+ +-------+---+---+ + +---+ | | | + +---+ | nitroglycerin (NITROSTAT) SL | | | tablet 0.4 mg 0.4 mg, | | | Sublingual, EVERY 5 MIN PRN, | | | Chest pain, Starting 10/03/17 | | | at 1610, May give up to 3 doses. | | | Notify physician after 2nd dose | | | given. Hold for SBP<100, | | + +---+ | | | + +---+ + +---------+ +---------+-------+---+ | norepinephrine in NS (LEVOPHED) | New Bag | 10/03/19 | 10 | 37.5 | | | 16 mcg/mL infusion CONTINUOUS | | 18 2:41 | mcg/min | mL/hr | | | PRN, Starting 10/03/17 at | | PM PST | | | | | 1441, Intra-op | | | | | | + +---------+ +---------+-------+---+ +---+---+ | | | +---+---+ + +-------+ +---+---+---+ | nystatin (MYCOSTATIN) powder | Given | 10/09/19 | | | | | Topical, 2 TIMES DAILY, First | | 18 8:51 | | | | | dose on Radha 10/08/17 at 0915, | | PM PST | | | | | Sprinkle powder on affected | | | | | | | area., | | | | | | + +-------+ +---+---+---+ +-------+ +---+---+---+ | Given | 10/09/19 | | | | | | 18 9:30 | | | | | | AM PST | | | | +-------+ +---+---+---+ | Given | 10/08/19 | | | | | | 18 9:14 | | | | | | PM PST | | | | +-------+ +---+---+---+ +---+---+ | | | +---+---+ + +-------+ +-------+---+---+ | pantoprazole (PROTONIX) DR | Given | 10/10/19 | 40 mg | | | | tablet 40 mg 40 mg, Oral, 2 | | 18 6:34 | | | | | TIMES DAILY BEFORE MEALS, First | | AM PST | | | | | dose on Thu10/07/17 at 1630, Do | | | | | | | not cut or crush., | | | | | | + +-------+ +-------+---+---+ +-------+ +-------+---+---+ | Given | 10/09/19 | 40 mg | | | | | 18 5:01 | | | | | | PM PST | | | | +-------+ +-------+---+---+ | Given | 10/09/19 | 40 mg | | | | | 18 6:34 | | | | | | AM PST | | | | +-------+ +-------+---+---+ +---+---+ | | | +---+---+ documented in this encounter Additional Health Concerns + + + + + | Infection | Onset Date | Last Indicated | Resolved Time | + + + + + | INFLUENZA (Retired - | 10/05/2017 | 10/05/2017 | 02/22/2020 5:12 PM | | Do Not Use) | | | PDT | + + + + + documented as of this encounter
--- OUTSIDE RECORDS SUMMARY | ~2020-03-04 | XMS | Encounter Summary ---
Demographics + + + | Address | [address] | | | [place] [address] | + + + | Home Phone [...] [place] | | | | | [address] | | + + + + + Care Team Providers + +------+ + | Care Applications Tester Name | Role | Phone | + [...] + + | Authorized | Specialty | Cardiology | Diagnoses | Dae, | Sebastian Cervantes | | | Services | | Ischemic | MD Rocio | [place] | | | Required | | cardiomyopat | [address] | | | | | hy Chronic | [address] | [address] | | | | | systolic CHF | [address] | [employer] [employer], [place] | | | | | (congestive | [place], [place] | [address] Phone: | | | | | heart | [phone] | [phone] | | | | | failure) | Phone: | Fax: | | | | | (HCC) | | | | | | | Biventricula | Fax: | | | | | | r ICD | | | | | | | (implantable | | | | | | | | | | | | | | cardioverter | | | | | | | -defibrillat | | | | | | | or) in place | | | | | | | Abdominal | | | | | | | aortic | | | | | | | aneurysm | | | | | | | (AAA) | | | | | | | without | | | | | | | rupture | | | | | | | (HCC) | | | + + + + + + + Reason for Visit + + + | Reason | Comments | + + + | New Patient | | + + + Evaluate & [...] | | | hy Chronic | Connie De La Cruz | [address] | | | | | systolic | [place], | [facility] [place] | | | | | (congestive) | [place] [address] | [address] Phone: | | | | | heart | Phone: | [phone] | | | | | failure | [phone] | Fax: | | | | | (HCC) | Fax: | [phone] | | | | | Chronic | [phone] | | | | | | systolic [...] Description | +--------+---------+ + + + | 06/22/ | Office | [facility] | [place], [place], | Ischemic | | 2019 | Visit | CARDIOLOGY [place] | [address] | cardiomyopathy | | | | [address] | [address] [employer] [employer], [place] | (Primary Dx); | | | | [address] | [phone] | Chronic systolic CHF | | | | [place] | | (congestive heart | | | | [address] | | failure) (HCC); | | | | [phone] | | Chronic kidney | | | | | | disease, stage IV | | | | | | (severe) (HCC); | | | | | | COMMISSIONED SECURITY OFFICER-D (AICD) | | | | | | Medtronic 10/16/17 | | | | | | EULOGIO Darby; | | | | | | Abdominal aortic | | | | | | aneurysm (AAA) | | | | | | without rupture | | | | | | (HCC) [...] + + + | Blood Pressure | 112/58 | 06/22/2019 9:00 AM | | | | | PDT | | + + + + + | Pulse | 71 | 06/22/2019 9:00 AM | | | | | PDT | | + + + + + | Temperature | - | - | | + + + + + | Respiratory Rate | - | - | | + + + + + | Oxygen Saturation | 96% | 06/22/2019 9:00 AM | | | | | PDT | | + + + + + | Inhaled Oxygen | - | - | | | Concentration | | | | + + + + + | Weight | 87.1 kg (192 lb) | 06/22/2019 9:00 AM | | | | | PDT | | + + + + + | Height | 175.3 cm (5' 9") | 06/22/2019 9:00 AM | | | | | PDT | | + + + + + | Body Mass Index | 28.35 | 06/22/2019 9:00 AM | | | | | PDT | | + + + + + documented in this encounter Progress Notes Rocio Pearl MD - 06/22/2019 9:00 AM PDTFormatting of this note might be different f rom the original. Date of visit: 06/22/2019 Primary Care Physician: Amy Olivares MD CHIEF COMPLAINT: Chief Complaint Patient presents with New Patient HISTORY OF PRESENT ILLNESS: Bob is 63 y.o. here for evaluation of coronary artery disease. Complex past medical hist ory and presentation. Ischemic cardiomyopathy, S/P PCI to LM, LAD and LCX S/P Defibrillator for primary prevention. Currently asymptomatic denies any chest pain or shortness of breath. Limited activity michelle scott Last hospitalization was in February 2019 for acute on chronic systolic congestive heart carlos eduardojeanne gandhi. Used to follow-up with [facility] last time evaluated in March 2019. Patient has a history of anterior myocardial infarction, hospitalized in [facility], March 15, 2017 at that time was [...] function was severely impaired hence he has COMMISSIONED SECURITY OFFICER therapy biventricular ICD implanted in Oct. Has been having recurrent in-stent stenosis. States post circumflex system whi ch was done in May 2018 in [facility]. Previously was treated with Sacubitril/Valsartan and metoprolol. Which both were stopped a pparently for asymptomatic hypertension. Currently on low-dose lisinopril 2.5 mg. On amiod arone 200 mg daily. On torsemide and metolazone 2.5 mg twice a week. Past medical history, SH, FH, and medications were reviewed in the chart. Medications: Outpatient Encounter Medications as of 06/22/2019 Medication Sig Dispense Refill acetaminophen (TYLENOL) 500 [...] tablet Take 5 mg by mouth Daily. Cholecalciferol (VITAMIN D-3) 67909 units CAPS Take by mouth Once a [...] MG CAPS Take 10 mg by mouth as needed. metOLazone 2.5 mg tablet Take 2.5 mg by mouth. Taking 2.5 mg tablet only on . nitroglycerin (NITROSTAT) 0.[address] 1 tablet under the tongue every 5 shai janeth as needed for Chest pain. 25 tablet 3 potassium chloride (KLOR-CON) 10 mEq CR tablet Take 2 tablets by mouth 3 times daily. 1 80 tablet 5 raNITIdine (ZANTAC) 150 MG capsule Take 150 mg by mouth nightly. torsemide (DEMADEX) 20 mg tablet Take 60 mg by mouth 2 times daily. traMADol (ULTRAM) 50 mg tablet Take 150 mg by mouth Twice daily as needed. No facility-administered encounter medications on file as of 06/22/2019. Allergies Allergies Allergen Reactions Ondansetron Other (See [...] dysuria or hematuria. Musculoskeletal: Chronic arthritic pain. Skin: Negative for rash. Neurological: Negative for dizziness. No numbness. No recent falls. No slurred speech. Hematological: No significant bruising. Psychiatric/Behavioral: No depression or anxiety. PHYSICAL EXAM Vital Signs: BP 112/58 | Pulse 71 | Ht 1.753 m (5' 9") | Wt 87.1 kg (192 lb) | SpO2 96% | BMI 28.35 kg/m GENERAL APPEARANCE: Alert, oriented, cooperative, no [...] 266, ALT 146, alk phos 86, BNP 2009 Lab Results Component Value Date/Time NA 136 08/26/2018 11:33 NA 136 06/10/2018 11:28 NA 141 05/21/2018 03:03 K 5.1 08/26/2018 11:33 K 4.6 06/10/2018 11:28 K 4.5 05/21/2018 03:03 CO2 24 08/26/2018 11:33 CO2 24 06/10/2018 11:28 CO2 25 05/21/2018 03:03 BUN 37 (H) 08/26/2018 11:33 BUN 24 (H) 06/10/2018 11:28 BUN 24 05/21/2018 03:03 CREA 2.01 (H) 08/26/2018 11:33 CREA 1.63 (H) 06/10/2018 11:28 CREA 1.69 (H) 05/21/2018 03:03 CALCIUM 8.6 08/26/2018 11:33 CALCIUM 9.1 06/10/2018 11:28 CALCIUM 8.7 05/21/2018 03:03 MG 2.5 (H) 05/13/2018 03:24 MG 2.4 05/12/2018 04:35 MG 2.4 05/04/2018 03:59 Lab Results Component Value Date/Time WBC 8.9 08/26/2018 11:33 WBC 6.1 05/21/2018 03:03 WBC 8.0 05/20/2018 05:38 HGB 12.8 (L) 08/26/2018 11:33 HGB 13.0 (L) 05/21/2018 03:03 HGB 13.5 05/20/2018 05:38 HCT 40.7 08/26/2018 11:33 HCT 38.0 (L) 05/21/2018 03:03 HCT 39.5 05/20/2018 05:38 HCT 40.5 05/15/2018 08:26 HCT 43.3 10/07/2017 03:51 HCT 41.4 10/06/2017 03:48 MCV 92.9 08/26/2018 11:33 MCV 91.6 05/21/2018 03:03 MCV 91.9 05/20/2018 05:38 LABPLAT 150 05/13/2018 03:24 LABPLAT 176 05/12/2018 04:35 LABPLAT 175 05/11/2018 05:14 Lab Results Component Value Date ALT 31 08/26/2018 ALT 57 05/14/2018 CHOL 94 (L) 06/10/2018 TRIG 211 (H) 06/10/2018 HDL 26 (L) 06/10/2018 LDLEX 31 10/20/2018 LDLEX 42 10/10/2017 GLUF 134 (H) 05/13/2018 GLUF 132 (H) 05/12/2018 EC02/13/2019 From [facility] showed atrial sensed and ventricular paced rhythm. 02/08/2019 From [facility] showing atrial flutter with ventricular paced rhythm, [...] Last US carotid: Medtronic BiV ICD 10/16/2017, [id number] ASSESSMENT: Patient is 63 y.o. with 1. Severe coronary artery disease with recurrent instent restenosis, 2 angioplasties after the initial PCI on March 2017. 2. Severe ischemic cardiomyopathy, NYH class III, class C. 3. Chronic impaired systolic function, due to above. S/P COMMISSIONED SECURITY OFFICER therapy. 4. Chronic kidney disease stage IV. Severe. 5. History of left atrial thrombus. 6. Paroxysmal atrial flutter, CHADSVASc score 5, Not on anticoagulation. 7. History of cerebral vascular accident. Plan: Complex past medical history and presentation. Management will be challenging in the view of low blood pressure and advanced kidney diseas e. Will continue with Lisinopril and continue to follow up with nephrology. Previously Sacubitril was stopped due to hypotension. Will restart metoprolol succinate low dose and titrate up. Patient was asymptomatic with me toprolol before. 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 Will need to be on anticoagulation, history is positive for previous left atrial thrombus a nd paroxysmal atrial flutter, currently on rhythm control strategy amiodarone 200 mg daily. Will have the patient be evaluated with EP, anticoagulation will be discussed further. Continue with Torsemide 20 mg and metolazone 2.5 mg daily. Further recommendations will follow. *This report has been prepared using a voice recognition system. The report was reviewed fo r accuracy, however, sound-alike word errors, addition and/or deletions may occur. If there is any question about this report please contact me. Rocio Pearl MD, MPH documented in this encounter Plan of Treatment +--------+ + + + + | Date | Type | Specialty | Care Team | Description | +--------+ + + + + | 03/12/ | Office | Nephrology | Juan Pablothall, | | | 2019 | Visit | | [address] | | | | | | [address] | | | | | | [address] [place] | | | | | | [id number] | | | | | | | | +--------+ + + + + | 04/16/ | Office | Cardiology | Alin Anderson | | | 2019 | Visit | | MD [address] | | | | | | [address] | | | | | | [place] [address] | | | | | | [phone] | | | | | | | | +--------+ + + + + | 04/16/ | Procedure | Cardiology | | | | 2019 | visit | | | | +--------+ + + + + | 04/25/ | Office | Cardiology | Rocio Pearl, | | | 2019 | Visit | | MD Cheryl URENA | | | | | | [place] [facility] [place] | | | | | | [address] | | | | | | | | +--------+ + + + + + + +--------+ + + | Name | Type | Priori | Associated Diagnoses | Order Schedule | | | | ty | | | + + +--------+ + + | Device Interrogation | Cardiac | Routin | Ischemic | Ordered: 06/22/2019 | | | Implant | e | cardiomyopathy | | | | | | Chronic systolic CHF | | | | | | (congestive heart | | | | | | failure) (HCC) | | | | | | COMMISSIONED SECURITY OFFICER-D (AICD) | | | | | | Medtronic 10/16/17 | | | | | | EULOGIO Darby | | | | | | Abdominal aortic | | | | | | aneurysm (AAA) | | | | | | without rupture | | | | | | (HCC) | | + + +--------+ + + + + +--------+ + + | Name | Type | Priori | Associated Diagnoses | Order Schedule | | | | ty | | | + + +--------+ + + | Ambulatory referral | Outpatient | Routin | Ischemic | Ordered: 06/22/2019 | | to [facility] Cardiac | Referral | e | cardiomyopathy | | | Electrophysiology | | | Chronic systolic CHF | | | ANGELA | | | (congestive heart | | | | | | failure) (HCC) | | | | | | COMMISSIONED SECURITY OFFICER-D (AICD) | | | | | | Medtronic 10/16/17 | | | | | | EULOGIO Darby | | | | | | Abdominal aortic | | | | | | aneurysm (AAA) | | | | | | without rupture | | | | | | (HCC) | | + + +--------+ + + documented as of this encounter Visit Diagnoses + + | Diagnosis | + + | Ischemic cardiomyopathy - Primary Other specified forms of chronic ischemic heart | | disease | + + | Chronic systolic CHF (congestive heart failure) (HCC) | + + | Chronic kidney disease, stage IV (severe) (HCC) Chronic kidney disease, Stage IV | | (severe) | + + | COMMISSIONED SECURITY OFFICER-D ASHLEE) Medtronic 10/16/17 EULOGIO Darby | + + | Abdominal aortic aneurysm (AAA) without rupture (HCC) | + + documented in this encounter
--- OUTSIDE RECORDS SUMMARY | ~2020-03-04 | XMS | Encounter Summary ---
Demographics + + + | Address | [address] | | | [place] [address] | + + + | Home Phone | | + + + | Preferred Language | Unknown | + + + | Marital Status | | + + + | Methodist Affiliation | Unknown | + + + | Race | Unknown | + + + | Ethnic Group | Unknown | + + + Author + + + | Author | [facility] | | | and [place] | + + + | Organization | [facility] | | | and [place] | + + + | Address | Unknown | + + + | Phone | Unavailable | + + + Support + + + + + | Name | Relationship | Address | Phone | + + + + + | [address] | [address] | [place], [place] | | | | | [address] | | + + + + + Care Team Providers + +------+ + | Care Lawyer Criminal Name | Role | Phone | + [...] | | involving | [address] | [place] | | | | | algaaciq | [address] | [place] | | | | | coronary | [address] | [address] | | | | | artery of | Phone: | Phone: | | | | | algaaciq heart | [phone] | [phone] | | | | | without | Fax: | Fax: | | | | | angina | [phone] | [phone] | | | | | pectoris | | | +--------+ + + + + + Encounter Details +--------+---------+ + + + | Date | Type | Department | Care Team | Description | +--------+---------+ + + + | 08/17/ | Office | [facility] | RahulyazshirazRandy, | Acute on chronic | | 2018 | Visit | [facility] | MD [address] | systolic congestive | | | | REHAB[facility] [address] | [place], | heart failure (HCC) | | | | [address] [place] | [place] [address] | (Primary Dx) | | | | [place] [address] | [phone] | | | | | [phone] | | | +--------+---------+ + + + [...] Mchugh RRT - 08/17/2018 10:00 AM PST [facility] [address] [place] [address] Cardiac Rehab Date: 08/17/2018 Patient Information Patient [...] | | | | | [address] [facility] | | | | | | [address] | | | | | | [id number] | | | | | | | | +--------+ + + + + | 04/16/ | Office | Cardiology | Monica Alin | | | 2019 | Visit | | MD Cheryl Arreguin | | | | | | [address] | | | | | | [place] [address] | | | | | | [phone] | | | | | | | [...] [place] | | | | | | [address] | | | | | | | | +--------+ + + + + documented as of this encounter Visit Diagnoses + + | Diagnosis | + + | Acute on chronic systolic congestive heart failure (HCC) - Primary Acute on chronic | | systolic heart failure | + + documented in this encounter"
--- OUTSIDE RECORDS SUMMARY | ~2020-03-04 | XMS | Clinical Summary ---
Demographics + + + | Address | [address] [place] [address] [address] | | | [place] [address] | + + + | Home Phone | | + + + | Preferred Language | Unknown | + + + | Marital Status | | + + + | Nondenominational Affiliation | NRP | + + + [...] | [place] | E[place] | [address] | | | | | [place] [address] | | + + + + + Care Team Providers + +------+ + | Care Employee Welfare Manager Name | Role | Phone | + +------+ + | Chato Matson MD | PCP | | + +------+ + Source Comments E[facility] is fully live on both [facility] and [facility] Allergies No Known Allergies Medications + + + +---------+------+------+-------+ | Medication | Sig | Dispensed | Refills | Star | End | Statu | | | | | | t | Date | s | | | | | | Date | | | + + + +---------+------+------+-------+ | artificial tears | Instill 1 drop [...] eye | | | | | | | + + + +---------+------+------+-------+ | cholecalciferol | Take 1 tablet by [...] deficiency | | | | | | | + + + +---------+------+------+-------+ | melatonin 3 mg | Take 1 tablet by | 30 | 0 | 07/2 | | Activ | | oral | mouth once daily in | tablet | | 20 | | e | | tabletIndications: | the evening. | | | 17 | | | | delirium | Indications: | | | | | | | | Delirium | | | | | | + + + +---------+------+------+-------+ | oxyCODONE | Take 1-2 tablets by [...] | | + + + +---------+------+------+-------+ | polyethylene | Mix 1 packet and [...] | | + + + +---------+------+------+-------+ | senna-docusate | Take 1 tablet by [...] | | + + + +---------+------+------+-------+ | gabapentin 300 mg | Take 1 capsule by | 90 | 0 | 02/1 | | Activ | | oral | mouth three times | capsule | | 0/20 | | e | | capsuleIndications: | daily. Indications: | | | 18 | | | | postoperative acute | Postoperative Acute | | | | | | | pain | Pain | | | | | | + + + +---------+------+------+-------+ | metFORMIN 500 mg | Take 1 [...] | + + + +---------+------+------+-------+ | aspirin chewable | Chew and swallow 1 | 30 | 11 | 02/ | | Activ | | 81 mg [...] | + + + +---------+------+------+-------+ | clopidogrel 75 mg | Take 1 [...] tablet by | 30 | 0 | 02/1 | | Activ | | succinate 25 [...] | | | | | | | reinfarction | | | | | | | | prevention | | | | | | | + + + +---------+------+------+-------+ | nitroglycerin 0.4 | Place 1 tablet [...] | | + + + +---------+------+------+-------+ | acetaminophen 500 | Take 2 tablets by | 100 | 0 | 02/1 | | Activ | | mg oral | mouth every six | tablet | | 0/20 | | e | | tabletIndications: | hours as needed. | | | 18 | | | | pain | Indications: Pain | | | | | | + + + +---------+------+------+-------+ | pantoprazole 40 mg | Take 1 tablet by | 60 | 11 | 02/1 | | Activ | | oral tablet,delayed | mouth two times | tablet | | 0/20 | | e | | release (DR/EC) | daily. | | | 18 | | | + + + +---------+------+------+-------+ | atorvastatin 80 mg | Take 1 [...] | | | + + + +---------+------+------+-------+ Active Problems + + + | Problem | Noted Date | + + + | NSTEMI (non-ST elevated myocardial infarction) | 10/17/2017 | + + + | Stenosis of coronary artery stent | 10/17/2017 | + + + | Chronic systolic congestive heart failure | 10/17/2017 | + + + | Encounter for insertion of cardiac resynchronization therapy | 10/17/2017 | | defibrillator (EMBLEM MAKER-D) | | + + + | Influenza, pneumonia | 10/17/2017 | + + + | Prediabetes | 10/17/2017 | + + + | Paroxysmal atrial flutter | 10/12/2017 | + + + | [...] reorientation, maintenance of sleep-wake cycles | | -yarelisoguicho qHS | + + + + + | Primary insomnia | 03/23/2017 | + + + + + | Last Assessment & Plan: More evident since extubation and | | sedation wean. -Melatonin qhs -seroquel qhs | | -seroquel qhs | + + + + + | Thrombsis of left atrial appendage following myocardial | 03/20/2017 | | infarction | | + + + + + [...] edema. 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 | | -secretions improving, cough strong [...] | Last Assessment & Plan: PT, IS, metawes | | -emphasizing long rehab process ahead [...] + + + + | Cardiogenic shock | 03/15/20 | | | | 17 [...] + + + | Acute kidney injury | 03/15/20 | | | | 17 [...] Acute respiratory failure with hypoxia and hypercapnia | 03/15/20 | | | | 17 | 7 | + + + + + + | Last Assessment & Plan: Had waxing and waning vent | | requirements during first week of stayExtubated 03/22, started on | | NC Q7Gmflk infusion begun 03/22 for daily goal -1 to -2LAfterload | | reduction for SBC < 130 to prevent flash pulmonary edema | + + + + + + | STEMI (ST elevation myocardial infarction) | 03/15/20 | | | | 17 [...] + + | On mechanically assisted ventilation | 03/15/20 | | | | 17 [...] + + + + | Ventricular fibrillation | 03/15/20 | | | | 17 | 7 | + + + + + + | Last Assessment & Plan: Patient went into VFib during cath | | lab procedure at [facility]. Was shocked 17 times | | Targeted [...] | | + + + + + Plan of Treatment + + + + + | Health Maintenance | Due Date | Last Done | Comments | + + + + + | Pneumococcal | | | | | vaccination (1 of 2 | 0 | | | | - PCV13) | | | | + + + + + | Influenza (Flu) | | | | | vaccination (Season | 0 | | | | Ended) | | | | + + + + + Implants + +------+--------+ +--------+--------+--------+ | Implanted | Type | Area | Manufacture | Device | Shelf | Model | | | | | r | | Expira | / | | | | | | Identi | tion | Serial | | | | | | fier | Date | / Lot | + +------+--------+ +--------+--------+--------+ | Icd-10/16/2017Implanted: Qty: 1 | ICD | Left: | [employer] | | 03/20/ | [id number] | | on 10/16/2017 by Wilner, | | Chest | INC | | 2018 | Q | | Michael Soni MD | | | | | | /[id number] | | | | | | | | [id number] | | | | | | | | / | + +------+--------+ +--------+--------+--------+ | Rv-Lead-10/16/2017Implanted: | LEAD | Left: | [employer] | | 07/15/ | [id number] | | Qty: 1 on 10/16/2017 by | | Chest | INC | | 2019 | /[id number] | | Michael Darby MD | | | | | | [id number] | | | | | | | | / | + +------+--------+ +--------+--------+--------+ | Ra-Lead-10/16/2017Implanted: | LEAD | Left: | [employer] | | 07/14/ | [id number] | | Qty: 1 on 10/16/2017 by | | Chest | INC | | 2019 | 2CM | | Michael Darby MD | | [...] | | 2018 | /[id number] | | Michael Darby MD | | | | | | [id number] | | | | | | | | / | + +------+--------+ +--------+--------+--------+ | Stent-2/8/2018Implanted: Qty: | | | [employer] | | | [id number] | | 1 on 10/15/2017 by Ly, | | | HANDY | | | [id number] | | Tejal Pettit MD | | | | | | X / | | | | | | | | /[id number] | | | | | | | | [id number] | + +------+--------+ +--------+--------+--------+ + + | Description:Ostial circ | + + Results Not on filefrom Last 3 Months Insurance + +--------+ +--------+ + +--------+ | Payer | Benefi | Subscriber | Effect | Phone | Address | Type | | | t Plan | ID | marilu | | | | | | / | | Dates | | | | | | Group | | | | | | + +--------+ +--------+ + +--------+ | [place] | BLUE | [phone] | 10/08/19 | [phone] | [address] | PPO | | | CROSS | | 16-Pre | 8 | [id number] | | | | [place] | | sent | | [place], | | | | [place] | | | | [place] [address] | | + +--------+ +--------+ + +--------+ | [place] | OHP | [id number] | 03/07/20 | [phone] | [address] Medica | | | PLUS | | 17-Pre | 6 | [phone] | id | | | OPEN | | sent | | [place], [place] | | | | CARD | | | | [phone] | | + +--------+ +--------+ + +--------+ + +--------+ +--------+ + + | Guarantor Name | Accoun | Relation to | Date | Phone | Billing Address | | | t Type | Patient | of | | | | | | | | | | + +--------+ +--------+ + + | Bob Will | Person | Self | [birth year] | [address] | | | al/Negro | | 1956 | [phone] | [address] [place] | | | [place] | | | [address] (Home) | [address] | + +--------+ +--------+ + + Advance Directives + + + + + | Code Status | Date | Date | Comments | | | Activated | Inactivated | | + + + + + | Full Code | 10/10/2017 | 10/18/2017 | | | | 9:17 PM | 1:48 AM | | + + + + + + + + +---+ | | | | | + + + +---+ | Full Code | 03/19/2017 | 04/02/2017 | | | | 1:02 PM | 8:36 PM | | + + + +---+ + + + +---+ | | | | | + + + +---+ | Full Code | 03/18/2017 | 03/19/2017 | | | | 11:02 AM | 1:02 PM | | + + + +---+
--- OUTSIDE RECORDS SUMMARY | ~2020-03-04 | XMS | Encounter Summary ---
Demographics + + + | Address | [address] | | | [place] [address] | + + + | Home Phone | | + + + | Preferred Language | Unknown | + + + | Marital Status | | + + + | Judaism Affiliation | Unknown | + + + | Race | Unknown | + + + | Ethnic Group | Unknown | + + + Author + + + | Author | [facility] | | | and [place] | + + + | Organization | [facility] | | | and [place] | + + + | Address | Unknown | + + + | Phone | Unavailable | + + + Support + + + + + | Name | Relationship | Address | Phone | + + + + + | [place] | E[place] | [place] | | | | | [address] | | + + + + + Care Team Providers + +------+ + | Care Machine Operator Hop Picker Name | Role | Phone | + +------+ + | Amy Olivares MD | PCP | | + +------+ + Reason for Visit + + + | Reason | Comments | + + + | Chronic Kidney | | | Disease, Stage IV | | + + + Evaluate & Treat (Routine) + +--------+ + + + + | Status | Reason | Specialty | Diagnoses / | Referred By | Referred To | | | | | Procedures | Contact | Contact | + +--------+ + + + + | Pending | | Nephrology | Diagnoses | Olivares, | [facility] | | Review | | | Chronic | Amy Dai MD | Nephrology | | | | | kidney | [address] | [address] | | | | | disease, | [address] | [address] | | | | | stage 3 | [place], | [place], | | | | | (moderate) | [place] [address] | [place] [address] | | | | | (HCC) | Phone: | Phone: | | | | | Procedures | [phone] | [phone] | | | | | DE OFFICE | Fax: | Fax: | | | | | OUTPATIENT | [phone] | [phone] | | | | | VISIT 25 | | | | | | | MINUTES | | | | | | | 01/22- PEND | | | | | | | NEW INS? DOS | | | | | | | 03/12/20 | | | | | | | Follow up | | | + +--------+ + + + + Encounter Details +--------+---------+ + + + | Date | Type | Department | Care Team | Description | +--------+---------+ + + + | 09/12/ | Office | [facility] [place] | [place], | Chronic kidney | | 2020 | Visit | NEPHROLOGY [address] | [address] [address] | disease, stage IV | | | | [address] | [address] | (severe) (HCC) | | | | [place], [place] | [address] | (Primary Dx); | | | | [address] | [address] | Hypertension, renal | | | | [phone] | | disease, stage 1-4 | | | | | | or unspecified | | | | | | chronic kidney | | | | | | disease; Ischemic | | | | | | cardiomyopathy; | | | | | | Secondary | | | | | | hyperparathyroidism | | | | | | (HCC) [...] + + + | Blood Pressure | 90/60 | 09/12/2019 8:33 AM | | | | | PST | | + + + + + | Pulse | 60 | 09/12/2019 8:33 AM | | | | | PST | | + + + + + | Temperature | - | - | | + + + + + | Respiratory Rate | - | - | | + + + + + | Oxygen Saturation | 99% | 09/12/2019 8:33 AM | | | | | PST | | + + + + + | Inhaled Oxygen | - | - | | | Concentration | | | | + + + + + | Weight | 92 kg (202 lb 13.2 | 09/12/2019 8:33 AM | | | | oz) | PST | | + + + + + | Height | - | - | | + + + + + | Body Mass Index | 29.95 | 07/25/2019 2:22 PM | | | | | PST | | + + + + + documented in this encounter Patient Instructions Patient Instructions Lacho Mcghee ARNP - 09/12/2019 8:30 AM PSTPlease notify ca rdiology if blood pressure is below 90 on top number. Please avoid taking NSAIDs. These are some commonly used NSAIDs: ibuprofen (Motrin,Advil), naproxen (Aleve, Naprosyn), celecoxib (Celebrex), indomethacin (Indocin), meloxicam (Mobic). Stay well hydrated with water. documented in this encounter Progress Notes Lacho Mcghee ARNP - 09/12/2019 8:30 AM PSTFormatting of this note might be diff erent from the original. Nephrology Follow-up Visit Visit date: 09/12/2019 Primary care provider: Amy Olivares MD Follow-up type: 3 months HPI: Bob Will is a 63 y.o. male with chronic kidney disease likely due to hypertensi ve nephrosclerosis but also at risk for cardiorenal syndrome. -hypertension diagnosed approximately 1998 -coronary artery disease post recent anterior wall MA, post PTCA and stents of the left romero n, LAD and LCx on 03/15/17 -ischemiccardiomyopathy,SITE INSPECTOR-D placement in [facility] on 10/17/2017; LVEF 30-35% -"borderline" type 2 diabetes mellitus -serum creatinine 1.5 mg/dl 2016; 1.5-2 mg/dl 2017; 2.1-2.7 mg/dl 2018; increased to 3 mg/d l 05/31/19; now 2.4 mg/dl 08/30/19 Ashok is here with his and young grandchildren. He reports that since last visit he was taken off of metoprolol and started on low dose carvedilol by his ict quality assurance engineer, Dr. Pearl . He reports blood pressure is not as low, 90-105 mmHg systolic. He has been feeling good ov erall. No edema or worsening shortness of breath. Review of Systems Constitutional: Positive for fatigue (increased over past year). Negative for appetite de la cruz ge and unexpected weight change. Respiratory: Positive for shortness of breath (with exertion, at baseline). Cardiovascular: Negative for chest pain and leg swelling. Gastrointestinal: Negative for nausea and vomiting. Genitourinary: Negative for dysuria, frequency and hematuria. PMH: Patient Active Problem List Diagnosis Date Noted PAD (peripheral artery disease) ([facility]) Priority: High Note Last Updated: 01/06/2018 Segmental pressures 11/24/17 Abnormal left ankle brachial index of 0.91 consistent with s gurvinder segment disease. Chronic kidney disease, stage IV (severe) ([facility]) 06/06/2019 Chronic systolic CHF (congestive heart failure) ([facility]) 06/02/2019 Secondary hyperparathyroidism ([facility]) 03/10/2019 Anemia in stage 3 chronic kidney disease ([facility]) 03/10/2019 Fatigue 09/17/2018 Note Last Updated: 09/17/2018 48-HOUR HOLTER MONITOR REPORT 08/26/2018 - The predominant rhythm is sinus rhythm with ve ntricular paced via ICD with the heart rate ranging between 52 and 80 beats per minute. Th e average heart rate was 63 beats per minute during the 48:32 hour recording. 10 ventricular singles. 320 runs of sinus bradycardia with the longest run 4535 beats at a minimum rate of 52 beats per minute (10:04-2). The patient did not return a diary or report any symptoms. COPD (chronic obstructive pulmonary disease) ([facility]) 05/14/2018 Actinic keratosis 04/14/2018 Basal cell carcinoma of lower extremity 04/14/2018 Benign neoplasm of skin 04/14/2018 Hypercholesterolemia 04/14/2018 Metabolic syndrome X 04/14/2018 Neoplasm of uncertain behavior of skin of trunk 04/14/2018 Polyp of colon 04/14/2018 GERD (gastroesophageal reflux disease) 11/12/2017 SITE INSPECTOR-D (AICD) [employer]onic 10/16/17 [facility] Stecker 10/19/2017 Note Last Updated: 11/11/2017 MODEL NAME MODEL# SERIAL# DATE IMPLANTED GENERATOR Medtronic [id number] 10/16/17 RV LEAD Medtronic [id number] 10/16/17 A LEAD Medtronic [id number] 10/16/17 Coronary Sinus LEAD Medtronic [id number] 10/16/17 Indication: ischemic cardiomyopathy with reduced EF 30-35% H/O atrial flutter 10/19/2017 Acute on chronic systolic congestive heart failure (HCC) 10/17/2017 Note Last Updated: 03/22/2019 Echocardiogram on 11/03/18 shows this was a technically difficult study with suboptimal vi ews, the left ventricle is mildly dilated severely impaired systolic function EF 25-30%. Alen netic anterior, anteroseptal, inferosepal, inferior and apical segments, mild tricuspid regu rgitation with moderate left atrial enlargement, there is no pericardial effusion, compared with the findings of the prior study, there has been no significant change, by Rocio arias. Influenza, pneumonia 10/17/2017 Prediabetes 10/17/2017 Stenosis of coronary artery stent 10/17/2017 Ischemic cardiomyopathy 05/26/2017 Note Last Updated: 04/05/2018 S/P [employer] SITE INSPECTOR-D 10-16-17 Dr Darby, [facility] Pet Scan 10/13/17 shows No Significant tracer uptake within mid- to - distal anterior wall/in terventricular septum and apex corresponding to same non- perfused areas seen on myocardial rest perfusion scan , compatible with nonviable myocardium in these regions. Echocardiogram 11/24/2017 shows Mild left atrial dilatation, mild left ventricular dilatati on with him mild to moderate eccentric left ventricular hypertrophy, there is a segmental wa ll motion abnormality with severe hypokinesis of the entire anterior and anteroseptal region , overall, left ventricular systolic function is moderately decreased, LVEF is 35-40%, mild mitral valve regurgitation, mild tricuspid valve regurgitation, borderline pulmonary hyperte nsion with a peak systolic pressure of 35-40 mmHg, pacemaker lead in the right ventricle, no rmal IVC with normal respiratory collapse. Echocardiogram 04/02/2018 shows mild biatrial dilatation, mild left ventricular dilatation w ith mild eccentric left ventricular hypertrophy, there is a segmental wall motion abnormalit y with severe hypokinesis of the entire anterior and anteroseptal region. Overall, left vent ricular systolic function is moderately decreased. LVEF is 30-35%, grade 1 left ventricular diastolic dysfunction, mild mitral valve regurgitation, normal right-sided pressure, normal IVC with normal respiratory collapse, when compared to echocardiogram on 11/25/17, left ventr icular systolic function continued to deteriorate. Coronary artery disease involving [place] coronary artery of [place] heart without angina pectoris 04/06/2017 Note Last Updated: 05/26/2018 NM on 05/09/2018 shows Decreased uptake on stress and rest of the anterior wall, septum and apex consistent with infarct, dilation of the left ventricular cavity consistent with ische ev cardiomyopathy, (High risk, left ventricular ejection fraction is calculated at 18%, Edw kimberlee, DO Sy. CV on 05/19/2018 shows 95% stenosis of the ostial circumflex treated with angioplasty only w ith a 3.75 x 16 NC balloon with <10% residual stenosis, the balloon was, iFR of the LAD was negative at 0.94%, by Khurram Canas MD. Stress test on 05/02/2018 shows decreased uptake on stress and rest of the anterior wall, se ptum and apex consistent with infarct, dilation of the left ventricular cavity consistent wi th ischemic cardiomyopathy, (High risk) left ventricular ejection fraction is calculated at 18%. Cardiac Cath ordered by Arya Christian 10/15/17 shows successful percutaneous coronary cont inue aggressive cardiac risk factor management , intervention to the ostial left circumflex with one 3.0 x 18 mm resolute oseas drug - eluting stent , successful percutaneous coronary t ransluminal angioplasty of the distal left main extending into the left anterior descending coronary artery with a final kissing balloon inflation with a 3.5 mm noncompliant and 2.5 m m complaint balloon, recommendations ; continue clopidogrel 75 mg daily for at least 12 jamila hs , therapy given bifurcation and left main stenting with multiple stent layers if tolerat ing , continue with Asprin 81 mg daily indefinitely , continue aggressive cardiac risk manag ement , optimal medical care for ischemic cardiomyopathy Cardiac Cath 10/04/17 shows Systemic hypotension, upper normal left ventricular end-diastol ic pressure, severe in-stent stenosis of left main to ostial LAD stent, severe in-stent sten osis ostial proximal left circumflex stent, mild to moderate RCA disease, ANNA grade 1 flow to distal LAD Delmer Gomez M.D., F.A.C.C. Echocardiogram 06/04/17 shows Mild left atrial dilatation, Normal left ventricular size. The re is a mild hypokinesis of the anteriorwall. Overall, left ventricular systolic function is low-normal. LVEF is 50-55%,Normal valvular structure,Mild pulmonary hypertension with a pea k systolic pressure 40-45 mmHg,Normal IVC with normal respiratory collapse,When compared to echocardiography on 05/07/17, left ventricular systolic function is significantly improved an d now normalized. Echocardiogram 05/07/17 shows, Mild left atrial dilatation, Normal left ventricular size. Th ere is a segmental wall motionabnormality with thinning and severe hypokinesis of the entire anterior and anteroseptal region. Overall, left ventricular systolic function ismoderately decreased. LVEF is 35-40%, Grade 1 left ventricular diastolic dysfunction,Mild mitral valve agitation, Normal right-sided pressure, Normal IVC with normal respiratory collapse. Acute anterior wall MA (HCC) 04/03/2017 Note Last Updated: 10/20/2017 Transthoracic Echocardiogram 10/11/17 shows the left ventricular cavity size is normal , th e LV function is severely abnormal, left ventricular systolic thickening is segment ally abn ormal, visually estimated left ventricular ejection fraction is 30-35%, RV cavity size is n ormal, RV global systolic function is mildly reduced, there is mild dial ation of the as sen ding aorta, compared to the most recent exam dated 03/30/17, the LVFF is similar. Echocardiogram 10/03/17 shows the number of aortic valve leaflets cannot be identified, the left atrium is mildly dilated, normal left ventricular cavity size, mild concentric left leonardo tricular hypertrophy, ejection fraction is visually estimated at 40%, thinning and severe hy pokinesis distal anterior, anterior septal, and apical segments, aortic root dimension withi n normal limits, mild mitral regurgitation present, no evidence of any pericardial effusion, the pulmonic valve was not well visualized, normal right atrial size, normal right ventricu lar size and function, structurally normal tricuspid valve without significant stenosis or r egurgitation, Insufficient amount of tricuspid regurgitation for estimation of pulmonary art selena pressures, when compared with images of previous echo 06/04/17, no significant changes. Angiography and stent 03/15/2017 successful PCI with placement of 3.0X23 stent in the distal LM and ostial LAD reducing a 100% stenotic lesion to 0% residual stenosis, successful PCI wi th placement of 2.5X18 stent in the ostial LCx reducing a 90% stenotic lesion to 0% resdual stenosis. Generalized pain 03/24/2017 Note Last Updated: 04/14/2018 Last Assessment & Plan: Variously reports in back, calves, inguinal regions bilaterally. Takes hydrocodone at home, 10-325 q6. -oxy 5-15 q3prn -apap 650 q6 (got 1000 q6 for about 7 days) -hm for breakthrough, has not required in some time -lido patches added 03/24 Acute delirium 03/23/2017 Note Last Updated: 03/08/2019 Overview: Last Assessment & Plan: With sleep-wake disturbance. -Frequent reorientation, maintenance of sleep-wake cycles -seroquel qHS Primary insomnia 03/23/2017 Note Last Updated: 03/08/2019 Overview: Last Assessment & Plan: More evident since extubation and sedation wean. 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 3.9cm at widest. Infrarenal. Coronary atherosclerosis 03/15/2017 Cervical spondylosis without myelopathy 02/19/2012 Cervicogenic headache 02/19/2012 Post traumatic stress disorder 02/19/2012 Family history of sudden 06/18/2009 Mixed hyperlipidemia 04/16/2009 Nocturia 04/16/2009 Benign essential hypertension 03/15/2009 Note Last Updated: 09/20/2018 XR CHEST AP PORTABLE 08/26/2018-Interval resolved bronchovascular/interstitial thickening . Minimal left basilar scarring. Heart is normal in size. Cardiac pacer leads have been plac ed no evidence of pneumothorax or pleural effusion. Aorta is normal. No acute osseous abnorm ality. No acute intrathoracic abnormality identified. Benign prostatic hyperplasia without urinary obstruction 03/15/2009 Family history of malignant neoplasm of gastrointestinal tract 03/15/2009 Family history of stroke 03/15/2009 Impotence of organic origin 03/15/2009 Outpatient Medications Marked as Taking for the 09/12/19 encounter (Office Visit) with ADARSH aMyes Medication Sig Dispense Refill acetaminophen (TYLENOL) 500 [...] (with breakfast & dinner). Cholecalciferol (VITAMIN D-3) 37642 units CAPS Take 50,000 Units by mouth [...] 2 tablets by mouth 3 times daily. ( Patient taking differently: Take 30 mEq by mouth 3 times daily.) 180 tablet 5 torsemide (DEMADEX) 20 mg tablet Take 60 mg by mouth 2 times daily. traMADol (ULTRAM) 50 mg tablet Take 150 mg by mouth Twice daily as needed. Allergies Allergen Reactions Ondansetron Other (See Comments) Twitching and numbness of arm Promethazine Other (See Comments) Twitching and numbness of arm BP 90/60 | Pulse 60 | Wt 92 kg (202 lb 13.2 oz) | SpO2 99% | BMI 29.95 kg/m Physical Exam Vitals signs reviewed. Constitutional: General: He is not in acute distress. Appearance: He is well-developed. Neck: Musculoskeletal: Neck supple. Cardiovascular: Rate and Rhythm: Normal rate and regular rhythm. Heart sounds: No murmur. No friction rub. No gallop. Pulmonary: Effort: Pulmonary effort is normal. No respiratory distress. Breath sounds: Normal breath sounds. No wheezing, rhonchi or rales. Abdominal: General: Bowel sounds are normal. Palpations: Abdomen is soft. Skin: General: Skin is warm. Findings: No rash. Neurological: Mental Status: He is alert and oriented to person, place, and time. Psychiatric: Speech: Speech normal. Reviewed labs with patient. Abstract on 09/01/2019 Component Date Value Ref Range Status Creatinine, External 08/30/2019 2.39 Final eGFR, External 08/30/2019 28 Final Sodium, External 08/30/2019 138 Final Potassium, External 08/30/2019 3.7 Final Chloride, External 08/30/2019 92 Final Carbon Dioxide, External 08/30/2019 33 Final Calcium, External 08/30/2019 9.5 Final Phosphorus, External 08/30/2019 5.0 Final Albumin, External 08/30/2019 4.4 Final Glucose, External 08/30/2019 120 Final BUN, External 08/30/2019 44 Final Protein/Creatinine Ratio, External 08/30/2019 0.101 0.2 Final ASSESSMENT AND PLAN: 1. Chronic kidney disease, stage IV (severe) ([facility]) Renal function has improved, within mos t recent serum creatinine baseline. This is likely due to improved renal perfusion as blood pressure has increased. Hypokalemia has resolved, on potassium supplement. No proteinuria on low dose JULIAN inhibitor. Discussed ways to preserve renal function; hypertensive control while avoiding prolonged hy potension, avoidance of nephrotoxins such as NSAIDS, staying well hydrated within fluid rest riction as requested by cardiology. Began discussion about dialysis options, if he should ever reach ESRD. He seems interested in learning more in the future. 2. Hypertension, renal disease, stage 1-4 or unspecified chronic kidney disease Blood pres sure is low normal but has improved. Patient appears relatively euvolemic. Continue current medications. 3. Ischemic cardiomyopathy This appears stable on current medication regimen. Recommend cl ose follow up with cardiology. 4. Secondary hyperparathyroidism (HCC) Recheck PTH at next visit. Return in about 6 months (around 03/12/2020). Labs: Renal panel, PTH, vitamin d25 OH, CBC, iron panel with ferritin, urine protein/creati nine ratio Patient verbalized agreement and understanding of above plan. CC: MD Dr. Dae Torres docuumm weldon this encounter Plan of Treatment +--------+ + + + + | Date | Type | Specialty | Care Team | Description | +--------+ + + + + | 03/12/ | Office | Nephrology | Litzy | | | 2019 | Visit | | [address] [address] | | | | | | [address] | | | | | | [address] | | | | | | [address] | | | | | | | | +--------+ + + + + | 04/16/ | Office | Cardiology | Alin Anderson | | 2019 | Visit | | MD [address] | | | | | | [address] | | | | | | [place] [address] | | | | | | [phone] | | | | | | | [...] [place] | | | | | | [address] | | | | | | | | +--------+ + + + + documented as of this encounter Visit Diagnoses + + | Diagnosis | + + | Chronic kidney disease, stage IV (severe) (HCC) - Primary Chronic kidney disease, | | Stage IV (severe) | + + | Hypertension, renal disease, stage 1-4 or unspecified chronic kidney disease | + + | Ischemic cardiomyopathy Other specified forms of chronic ischemic heart disease | + + | Secondary hyperparathyroidism (HCC) Secondary hyperparathyroidism (of renal origin) | + + documented in this encounter
--- OUTSIDE RECORDS SUMMARY | ~2020-03-04 | XMS | Encounter Summary ---
Demographics + + + | Address | [address] | | | [place] [address] | + + + | Home Phone [...] [place] | | | | | [address] | | + + + + + Care Team Providers + +------+ + | Care Business Excellence Manager Name | Role | Phone | + +------+ + | Amy Olivares MD | PCP | | + +------+ + Encounter Details +--------+ + + + + | Date | Type | Department | Care Team | Description | +--------+ + + + + | 06/06/ | Abstract | [facility] [place] | [place], | | | 2019 | | NEPHROLOGY [address] | [address] [address] | | | | | [address] | [address] | | | | | [place], [place] | [address] [place], [place] | | | | | [address] | [address] | | | | | [phone] | | | +--------+ + + + [...] | | | | | [address] [facility] [facility] | | | | | | [address] | | | | | | [address] | | | | | | | | +--------+ + + + + | 04/16/ | Office | Cardiology | Alin Anderson | | | 2019 | Visit | | MD Cheryl Arreguin | | | | | | [address] | | | | | | [place] [address] | | | | | | [phone] | | | | | | | [...] [place] | | | | | | [address] | | | | | | | | +--------+ + + + + documented as of this encounter Procedures + +--------+ + + + | Procedure Name | Priori | Date/Time | Associated Diagnosis | Comments | | | ty | | | | + +--------+ + + + | EXTERNAL LAB: IRON | Routin | 05/31/2019 | | Results for this | | TOTAL | e | | | procedure are in the | | | | | | results section. | + +--------+ + + + | EXTERNAL LAB: IRON | Routin | 05/31/2019 | | Results for this | | SATURATION | e | | | procedure are in the | | | | | | results section. | + +--------+ + + + | EXTERNAL LAB: IRON | Routin | 05/31/2019 | | Results [...] documented in this encounter Results External Lab: Iron Total (05/31/2019) + +--------+ + + + | Component | Value | Ref Range | Performed | Pathologist | | | | | At | Signature | + +--------+ + + + | Iron, | 127.03 | | | | | External | | | | | + +--------+ + + + External Lab: Iron Saturation (05/31/2019) + +-------+ + + + | Component | Value | Ref Range | Performed | Pathologist | | | | | At | Signature | + +-------+ + + + | Iron | 26.7 | | | | | Saturation, | | | | | | External | | | | | + +-------+ + + + External Lab: Iron Binding Capacity (05/31/2019) + +-------+ + + + | Component | Value | Ref Range | Performed | Pathologist | | | | | At | Signature | + +-------+ + + + | Iron | 476 | | | | | Binding | | | | | | Capacity, | | | | | | External | | | | | + +-------+ + + + External Lab: Ferritin (05/31/2019) + +-------+ + + + | Component | Value | Ref Range | Performed | Pathologist | | | | | At | Signature | + +-------+ + + + | Ferritin, | 120.5 | | | | | External | | | | | + +-------+ + + + documented in this encounter Visit Diagnoses Not on filedocumented in this encounter"
--- OUTSIDE RECORDS SUMMARY | ~2020-03-04 | XMS | Encounter Summary ---
Demographics + + + | Address | [address] | | | [place] [address] | + + + | Home Phone [...] [place], [place] | | | | | [address] | | + + + + + Care Team Providers + +------+ + | Care Leather Goods I Assembler Name | Role | Phone | [...] Provider Unknown | | | | | [place], [place] | [phone] | | | | | [phone] | (Fax) | | | | | [phone] | | | +--------+ + + + [...] [place] | | | | | | [address] | | | | | | | | +--------+ + + + + | 04/16/ | Office | Cardiology | Alin Anderson | | | 2019 | Visit | | MD Cheryl Arreguin | | | | | | [address] | | | | | | [place] [address] | | | | | | [phone] | | | | | | | [...] [place] | | | | | | [address] | | | | | | | | +--------+ + + + + documented as of this encounter Procedures + +--------+ + + + | Procedure Name | Priori | Date/Time | Associated Diagnosis | Comments | | | ty | | | | + +--------+ + + + | CV CARDIAC PROCEDURE | Routin | 03/15/2017 | | Results for this | | | e | 3:59 AM | | procedure are in the | | | | PDT | | results section. | + +--------+ + + + documented in this encounter Results CV CARDIAC PROCEDURE (03/15/2017 3:59 AM PDT) + + | Specimen | [...]
--- OUTSIDE RECORDS SUMMARY | ~2020-03-04 | XMS | Encounter Summary ---
Demographics + + + | Address | [address] | | | [place] [address] | + + + | Home Phone | | + + + | Preferred Language | Unknown | + + + | Marital Status | | + + + | Jain Affiliation | Unknown | + + + | Race | Unknown | + + + | Ethnic Group | Unknown | + + + Author + + + | Author | [facility] | | | and [place] | + + + | Organization | [facility] | | | and [place] | + + + | Address | Unknown | + + + | Phone | Unavailable | + + + Support + + + + + | Name | Relationship | Address | Phone | + + + + + | Venice Will | ECON | [place], [place] | | | | | [address] | | + + + + + Care Team Providers + +------+ + | Care Rack Puncher Name | Role | Phone | + +------+ + PCP | Unavailable | + +------+ + Reason for Visit +--------+--------+ + | Reason | Onset | Comments | | | Date | | +--------+--------+ + | Other | 08/24/ | plan of care | | | 2018 | | +--------+--------+ + Encounter Details +--------+ + + + + | Date | Type | Department | Care Team | Description | +--------+ + + + + | 08/24/ | Telephone | [facility] | Randy Figueroa, | Other (plan of care) | | 2017 | | CARDIOLOGY [address] | [address] | | | | | [place], | [place], | | | | | [place] [address] | [place] [address] | | | | | [phone] | [phone] | | | | | | | [...] Telephone Encounter - Lilian Machado RN - 08/26/2018 2:52 PM Ashok Monsalve's i s notified, they are in the building currently and will come upstairs to get the monitor and arrange an appointment ...........................................Lilian Machado RN on at 14:54 elephone Encounter - Lilian Machado RN - 08/26/2018 2:35 PM PSTLeft message at home and cell number for pa lara to return my call. ...........................................Lilian Machado RN on 1 10/27/17 at 14:36 elephone Lilian Sagastume RN - 08/24/2018 2:38 PM PSTLeft message at home number for patient to return my call. ...........................................Lilian Machado RN on 08/24/18 at 14:39 elephone Lilian Sagastume RN - 08/24/2018 2:37 PM PST----- Message from Randy Figueroa MD se nt at 08/24/2018 14:13 PST ----- Regarding: FW: Bob Will Please order 48 hour Holter monitor and have patient seen in 2-4 weeks. ----- Message ----- From: Lorelei Cruz, REGISTERED SALES ASSISTANT Sent: 08/24/2018 13:31 To: Randy Figueroa MD Subject: Bob Will Dr., I had Ashok in Cardio rehab today and he mentioned that he has been feeling more exhausted th an usual today. His heart rate dropped to 55 at one point. It is my understanding that his p acer is set for 60. I only observed this once. However, his heart rate during exercise only went up to 64. I told him I would share this with you and you could discuss the possible cau ses of his fatigue with him. Thank you so much. Lorelei Cruz, tester semiconductor packages documented in this e ncounter Plan of [...] | | | | | | [address] [place], [place] | | | | | | [address] | | | | | | | | +--------+ + + + + | 04/16/ | Office | Cardiology | Alin Anderson | | 2019 | Visit | | MD [address] | | | | | | [address] | | | | | | [place] [address] | | | | | | [phone] | | | | | | | | +--------+ + + + + | 04/16/ | Procedure | Cardiology | | | | 2019 | visit | | | | +--------+ + + + + | 04/25/ | Office | Cardiology | Rocio Pearl, | | | 2019 | Visit | | MD Cheryl URENA | | | | | | [place] [facility] | | | | | | [address] | | | | | | | | +--------+ + + + + documented as of this encounter Results Holter monitor - 48 hour (09/02/2018 1:27 PM PST) + + + | Narrative | Performed At | + + + | Randy Figueroa MD 09/02/2018 13:28 PATIENT NAME: Bob IRIZARRY MUSE | | Levi Will : 1955: AGE: 62 y.o. MEDICAL | | | RECORD NUMBER: [id number] PRIMARY CARE: Young Haque DO | | | READING CAT SCAN TECH: Randy Figueroa MD 48-HOUR HOLTER | | | MONITOR REPORT DATE: 08/26/2018 IMPRESSION: | | | 1. The predominant rhythm is sinus rhythm with ventricular paced | | | via ICD with the heart rate ranging between 52 and 80 beats per | | | minute. The average heart rate was 63 beats per minute during the | | | 48:32 hour recording. 2. 10 ventricular singles. 3. 320 runs | | | of sinus bradycardia with the longest run 4535 beats at a minimum | | | rate of 52 beats per minute (10:04-2). 4. The patient did not | | | return a diary or report any symptoms. Signed by: Rnady | | | MD [place] [facility] 09/02/2018, 13:17 | | + + + + +---------+ + + | Performing | Address | City/State/[facility] | Phone Number | | Organization | | | | + +---------+ + + | [facility] | | | | + +---------+ + + documented in this encounter Visit Diagnoses + + | Diagnosis | + + | Fatigue, unspecified type - Primary | + + documented in this encounter"
--- OUTSIDE RECORDS SUMMARY | ~2020-03-04 | XMS | Encounter Summary ---
Demographics + + + | Address | [address] | | | [place] [address] | + + + | Home Phone [...] [place], [place] | | | | | [address] | | + + + + + Care Team Providers + +------+ + | Care Director Of Occupational Therapy Name | Role | Phone | + +------+ + PCP | Unavailable | + +------+ + Encounter Details +--------+ + + + + | Date | Type | Department | Care Team | Description | +--------+ + + + + | 04/22/ | Abstract | [facility] | Randy Figueroa, | | | 2017 | | CARDIOLOGY [address] | MD [address] [place] | | | | | [place], | [place], | | | | | [place] [address] | [place] [address] | | | | | [phone] | [phone] | | | | | | | [...] | 03/12/ | Office | Nephrology | Tylerkenthalyocasta, | | | 2020 | Visit | | [address]ARSH [address] | | | | | | [address] | | | | | | [address] [place] | | | | | | [address] | | | | | | | | +--------+ + + + + | 04/16/ | Office | Cardiology | Alin Anderson | | | 2019 | Visit | | MD Cheryl Arreguin | | | | | | [address] | | | | | | [place] [address] | | | | | | [phone] | | | | | | | [...] [place] | | | | | | [address] | | | | | | | [...] in this encounter Results Basic Metabolic Panel (04/20/2018) + +--------+ + + + | Component | Value | Ref Range | Performed | Pathologist | | | | | At | Signature | + +--------+ + + + | Anion Gap | 23 (A) | 7 - 21 mmol/L | | | + +--------+ + + + | Urea | 24 (A) | 6 - 23 | | | | Nitrogen | | | | | | Clearance | | | | | + +--------+ + + + | Bun/Creatin | 14.0 | 6.0 - 28.6 | | | | ine | | | | | + +--------+ + + + + + | Specimen | + + | Blood | + + External Lab: Glucose (04/20/2018) + +---------+ + + + | Component | Value | Ref Range | Performed | Pathologist | | | | | At | Signature | + +---------+ + + + | Glucose, | 103 (A) | 70 - 100 | | | | External | | | | | + +---------+ + + + External Lab: Calcium (04/20/2018) + +-------+ + + + | Component | Value | Ref Range | Performed | Pathologist | | | | | At | Signature | + +-------+ + + + | Calcium, | 8.9 | 8.5 - 10.3 | | | | External | | | | | + +-------+ + + + External Lab: Carbon Dioxide (04/20/2018) + +-------+ + + + | Component | Value | Ref Range | Performed | Pathologist | | | | | At | Signature | + +-------+ + + + | Carbon | 19 | 19 - 31 | | | | Dioxide, | | | | | | External | | | | | + +-------+ + + + External Lab: Chloride (04/20/2018) + +-------+ + + + | Component | Value | Ref Range | Performed | Pathologist | | | | | At | Signature | + +-------+ + + + | Chloride, | 105 | 95 - 112 | | | | External | | | | | + +-------+ + + + External Lab: Potassium (04/20/2018) + +-------+ + + + | Component | Value | Ref Range | Performed | Pathologist | | | | | At | Signature | + +-------+ + + + | Potassium, | 4.7 | 3.6 - 5.1 | | | | External | | | | | + +-------+ + + + External Lab: Sodium (04/20/2018) + +-------+ + + + | Component | Value | Ref Range | Performed | Pathologist | | | | | At | Signature | + +-------+ + + + | Sodium, | 142 | 132 - 143 | | | | External | | | | | + +-------+ + + + External Lab: eGFR (04/20/2018) + +-------+ + + + | Component | Value | Ref Range | Performed | Pathologist | | | | | At | Signature | + +-------+ + + + | eGFR, | 40 | | | | | External | | | | | + +-------+ + + + + + | Specimen | + + | Blood | + + External Lab: Creatinine (04/20/2018) + + + + + + | Component | Value | Ref Range | Performed | Pathologist | | | | | At | Signature | + + + + + + | Creatinine, | 1.72 (A) | 0.7 - 1.25 | | | | External | | | | | + + + + + + + + | Specimen | + + | Blood | + + documented in this encounter Visit Diagnoses Not on filedocumented in this encounter"
--- OUTSIDE RECORDS SUMMARY | ~2020-03-04 | XMS | Encounter Summary ---
Demographics + + + | Address | [address] | | | [place] [address] | + + + | Home Phone [...] [place] | | | | | [address] | | + + + + + Care Team Providers + +------+ + | Care Shot Coat Tender Name | Role | Phone | + [...] Description | +--------+---------+ + + + | 09/08/ | Office | [facility] | Amy Olivares V, | Chronic systolic CHF | | 2020 | Visit | [facility] | MD [address] | (congestive heart | | | | REHABILITATION [address] | [address] [place], [place] | failure) ([facility]) | | | | [address] | [address] | (Primary Dx) | | | | [place] [address] | | | | | | [phone] | | | +--------+---------+ + + + [...] this encounter Progress Notes Gael Woo - 09/08/2019 9:00 AM PSTPatient tolerated exercise session without [...] [place] | | | | | | [address] | | | | | | | | +--------+ + + + + | 04/16/ | Office | Cardiology | Alin Anderson | | | 2019 | Visit | | MD Cheryl Arreguin | | | | | | [address] | | | | | | [place] [address] | | | | | | [phone] | | | | | | | [...] [place] | | | | | | [address] | | | | | | | | +--------+ + + + + documented as of this encounter Visit Diagnoses + + | Diagnosis | + + | Chronic systolic CHF (congestive heart failure) (HCC) - Primary | + + documented in this encounter"
--- OUTSIDE RECORDS SUMMARY | ~2020-03-04 | XMS | Encounter Summary ---
Demographics + + + | Address | [address] | | | [place] [address] | + + + | Home Phone [...] [place], [place] | | | | | [address] | | + + + + + Care Team Providers + +------+ + | Care Housecalls Nurse Name | Role | Phone | + +------+ + | Chato Matson MD | PCP | | + +------+ + Reason for Visit +--------+--------+ + | Reason | Onset | Comments | | | Date | | +--------+--------+ + | Other | 06/28/ | | | | 2017 | | +--------+--------+ + Encounter Details +--------+ + + + + | Date | Type | Department | Care Team | Description | +--------+ + + + + | 06/28/ | Telephone | [facility] [place] | Jenny, | Other | | 2017 | | CARDIOLOGY [address] | ADARSH [address] | | | | | [place], | [place], | | | | | [place] [address] | [place] [address] | | | | | [phone] | [phone] | | | | | | | [...] Telephone Encounter - Suzanne Cheng RN - 06/29/2018 8:52 AM PDTJim Kay, patient should be taking amiodarone 400 mg daily ..........................................Suzanne Cheng RN on 06/29/18 at 8:52 Patient and his notified, prescription sent to [facility] ............................... ...........Suzanne Cheng RN on 06/29/18 at 8:56 elephone [facility] - Suzanne Cheng RN - 06/28/2018 4:45 PM PDTRefilled prescription for amiodarone. Medication list is listed for once a day. Patient has changed from 400 mg twice a day to 200 mg three times a day. In [place] Alvarado [facility] I informed the patient that I would consult with Dr Kay ..........................................Suzanne Cheng RN on at 16:53 documented in thi s encounter Plan of [...] [place] | | | | | | [address] | | | | | | | | +--------+ + + + + | 04/16/ | Office | Cardiology | Alin Anderson | | | 2019 | Visit | | MD Cheryl Arreguin | | | | | | [address] | | | | | | [place] [address] | | | | | | [phone] | | | | | | | [...] [place] | | | | | | [address] | | | | | | | | +--------+ + + + + documented as of this encounter Visit Diagnoses Not on filedocumented in this encounter"
--- OUTSIDE RECORDS SUMMARY | ~2020-03-04 | XMS | Encounter Summary ---
Demographics + + + | Address | [address] | | | [place] [address] | + + + | Home Phone | | + + + | Preferred Language | Unknown | + + + | Marital Status | | + + + | Orthodoxy Affiliation | Unknown | + + + | Race | Unknown | + + + | Ethnic Group | Unknown | + + + Author + + + | Author | [facility] | | | and [place] | + + + | Organization | [facility] | | | and [place] | + + + | Address | Unknown | + + + | Phone | Unavailable | + + + Support + + + + + | Name | Relationship | Address | Phone | + + + + + | Venice Will | ECON | [place] | | | | | [address] | | + + + + + Care Team Providers + +------+ + | Care Awning Assembler Name | Role | Phone | [...] + + | Closed | Specialty | | Diagnoses | | Edgar Augustin | | | Services | | Sinus | Jenny, | E, MD [address] | | | Required | | problem | Hansa, RAILROAD BRAKE REPAIRER | [address] | | | | | | [address] | [address] | | | | | | [place] | [place], | | | | | | [place], | [place] [address] | | | | | | [place] | Phone: | | | | | | [address] | [phone] | | | | | | Phone: | Fax: | | | | | | [phone] | [phone] | | | | | | Fax: | | | | | | | [phone] | | +--------+ + + + + + Reason for Visit +--------+--------+ + | Reason | Onset | Comments | | | Date | | +--------+--------+ + | Other | 07/27/ | referral | | | 2017 | | +--------+--------+ + Encounter Details +--------+ + + + + | Date | Type | Department | Care Team | Description | +--------+ + + + + | 07/27/ | Telephone | [facility] | Jenny, | Other (referral) | | 2017 | | CARDIOLOGY [address] | Hansa RAILROAD BRAKE REPAIRER [address] | | | | | [place], | [place], | | | | | [place] [address] | [place] [address] | | | | | [phone] | [phone] | | | | | | | [...] Telephone Encounter - Suzanne Cheng RN - 07/27/2018 12:03 PM PSTPatient notified eliza t referrals were submitted for ENT and cardiac rehab ....................................... ...Suzanne Cheng RN on 07/27/18 at 12:03 documented in thi s encounter Plan of [...] | | | | [address] [place] | | | | | | [address] | | | | | | | | +--------+ + + + + | 04/16/ | Office | Cardiology | Alin Anderson | | | 2019 | Visit | | MD [address] | | | | | | [address] | | | | | | [place] [address] | | | | | | [phone] | | | | | | | [...] [place] | | | | | | [address] | | | | | | | | +--------+ + + + + + + +--------+ + + | Name | Type | Priori | Associated Diagnoses | Order Schedule | | | | ty | | | + + +--------+ + + | * [facility] [place] | Outpatient | Routin | Sinus problem | Ordered: 07/27/2018 | | Otolaryngology - AMB | Referral | e | | | | Referral | | | | | + + +--------+ + + documented as of this encounter Visit Diagnoses + + | Diagnosis | + + | Sinus problem - Primary Unspecified sinusitis (chronic) | + + documented in this encounter"
--- OUTSIDE RECORDS SUMMARY | ~2020-03-04 | XMS | Encounter Summary ---
Demographics + + + | Address | [address] | | | [place] [address] | + + + | Home Phone | | + + + | Preferred Language | Unknown | + + + | Marital Status | | + + + | Caodaism Affiliation | Unknown | + + + | Race | Unknown | + + + | Ethnic Group | Unknown | + + + Author + + + | Author | [facility] | | | and [place] | + + + | Organization | [facility] | | | and [place] | + + + | Address | Unknown | + + + | Phone | Unavailable | + + + Support + + + + + | Name | Relationship | Address | Phone | + + + + + | Venice Will | ECON | [place], [place] | | | | | [address] | | + + + + + Care Team Providers + +------+ + | Care Retort Fireman Name | Role | Phone | + +------+ + PCP | Unavailable | + +------+ + Reason for Visit + +--------+ + | Reason | Onset | Comments | | | Date | | + +--------+ + | Blood Pressure | 04/27/ | | | | 2018 | | + +--------+ + Encounter Details +--------+ + + + + | Date | Type | Department | Care Team | Description | +--------+ + + + + | 04/27/ | Telephone | [facility] | Carolina Lindarisa, | Blood Pressure | | 2018 | | CARDIOLOGY [address] | [address] [place] | | | | | [place], | [place], | | | | | [place] [address] | [place] [address] | | | | | [phone] | [phone] | | | | | | | [...] this encounter Miscellaneous Notes Telephone Encounter - Kamari Armenta RN - 04/30/2018 11:10 AM PDTPatient notified and he states he feels great on this medication. elephone Encounter - Kamari Armenta RN - 04/27/2018 2:44 PM PDTMessage left for call back. Electronically signed by Kamari Armenta RN at 2017 2:44 PM PDTTelephone Encounter - Randy Figueroa MD - 04/27/2018 2:36 PM PDTNo med change. Thank you. elephone Encounter - Franny Blood CMA - 04/27/2018 2:23 PM PDTFormatting of this note might be diff erent from the original. Next Visit:04/29/18 Blood pressure log received from patient as follows:04/09/18---04/22/18 Medication Change: stop lisinopril times 3 days Then start entresto 49/51 twice a day Date BP AM Pulse AM BP PM Pulse PM 04/09/18 110/78 78 04/10/18 110/76 78 120/78 80 04/11/18 122/77 78 122/76 78 04/12/18 120/78 78 122/76 78 04/13/18 120/78 78 120/78 78 04/14/18 122/78 78 120/78 78 04/15/18 115/78 77 115/78 80 04/16/18 115/78 78 120/96 78 04/17/18 120/77 78 122/78 78 04/18/18 122/78 78 122/78 77 04/19/18 120/78 76 124/78 78 04/20/18 124/78 78 124/78 78 04/21/18 110/78 76 112/75 76 04/22/18 112/78 77 110/78 78 Additional Comments: documented in this encounter Plan of Treatment +--------+ + + + + | Date | Type | Specialty | Care Team | Description | +--------+ + + + + | 03/12/ | Office | Nephrology | Litzy, | | | 2019 | Visit | | [address]SH [address] | | | | | | [address] [facility] | | | | | | [address] [place] | | | | | | [id number] | | | | | | | | +--------+ + + + + | 04/16/ | Office | Cardiology | Alin Anderson | | | 2019 | Visit | | MD [address] | | | | | | [address] | | | | | | [place] [address] | | | | | | [phone] | | | | | | | [...] [place] | | | | | | [address] | | | | | | | | +--------+ + + + + documented as of this encounter Visit Diagnoses Not on filedocumented in this encounter"
--- OUTSIDE RECORDS SUMMARY | ~2020-03-04 | XMS | Encounter Summary ---
Demographics + + + | Address | [address] | | | [place] [address] | + + + | Home Phone | | + + + | Preferred Language | Unknown | + + + | Marital Status | | + + + | Episcopalian Affiliation | Unknown | + + + | Race | Unknown | + + + | Ethnic Group | Unknown | + + + Author + + + | Author | [facility] | | | and [place] | + + + | Organization | [facility] | | | and [place] | + + + | Address | Unknown | + + + | Phone | Unavailable | + + + Support + + + + + | Name | Relationship | Address | Phone | + + + + + | [place] Will | ECON | [place] | | | | | [address] | | + + + + + Care Team Providers + +------+ + | Care Pole Maker Name | Role | Phone | [...] Description | +--------+---------+ + + + | 11/03/ | Office | [facility] | Amy Olivares V, | Chronic systolic CHF | | 2020 | Visit | [facility] | MD [address] | (congestive heart | | | | REHABILITATION [address] | [address] [place], [place] | failure) ([facility]) | | | | [address] | [address] | (Primary Dx) | | | | [place] [address] | | | | | | [phone] | | | +--------+---------+ + + + [...] this encounter Progress Notes Gael Woo - 11/03/2019 9:00 AM PSTPatient tolerated exercise session without [...] | | | | [address] | | | | | | [address] [place] | | | | | | [address] | | | | | | | | +--------+ + + + + | 04/16/ | Office | Cardiology | Alin Anderson | | | 2019 | Visit | | MD Cheryl Arreguin | | | | | | [address] | | | | | | [place] [address] | | | | | | [phone] | | | | | | | [...] [place] | | | | | | [address] | | | | | | | | +--------+ + + + + documented as of this encounter Visit Diagnoses + + | Diagnosis | + + | Chronic systolic CHF (congestive heart failure) (HCC) - Primary | + + documented in this encounter"
--- OUTSIDE RECORDS SUMMARY | ~2020-03-04 | XMS | Encounter Summary ---
Demographics + + + | Address | [address] | | | [place] [address] | + + + | Home Phone | | + + + | Preferred Language | Unknown | + + + | Marital Status | | + + + | Confucianism Affiliation | Unknown | + + + [...] [place] | | | | | [address] | | + + + + + Care Team Providers + +------+ + | Care Commercial Construction Project Manager Name | Role | Phone | [...] | apnea, | [address] | [place] | | | | | unspecified | [address] [place] | [place], | | | | | type | [place], [place] | [place] [address] | | | | | Procedures | [address] | Phone: | | | | | [place] POLYSOM | Phone: | [phone] | | | | | 6/>YRS SLEEP | [phone] | Fax: | | | | | W/CPAP 4/> | Fax: | [phone] | | | | | ADDL KATERINA | [phone] | | | | | | ATTND [place] | | | | | | | [...] | Services | Medicine | [place] | Terry, | [facility] | | | Required | | (obstructive | Hansa, BOX OFFICE ATTENDANT | Disorder [address] | | | | | sleep | [address] | [address] [place] | | | | | apnea) | [place] | Javier Herrera, | | | | | | [place], | [place] [address] | | | | | | [place] | Phone: | | | | | | [address] | [phone] | | | | | | Phone: | Fax: | | | | | | [phone] | [phone] | | | | | | Fax: | | | | | | | [phone] | | +--------+ + + + + + Encounter Details +--------+---------+ + + + | Date | Type | Department | Care Team | Description | +--------+---------+ + + + | 02/08/ | Office | [facility] | Sofie Sneed MD | Sleep apnea, | | 2018 | Visit | SLEEP DISORDER [address] | [address] | unspecified type | | | | [place] | [place] | (Primary Dx) | | | | [place] [address] | [address] | | | | | [phone] | | | +--------+---------+ + + + [...] when you re asleep. Date Last Reviewed: 04/07/201719996319-8837 [employer]. [address] [place] [address], [place] [address]. All righ ts reserved. This information is [...] types of CPAP. Your doctor or CPAP museum exhibit technician will help you decide whic h [...] sleep stage, and snoring. Date Last Reviewed: 04/07/201719995806-4942 [employer]. [address] [place] [address]. All righ ts reserved. This information is [...] congestion. He says when he was at [facility] for his heart, and he was told [...] tries not to take it regularly ? Florence Sleepiness Scale: 19 out of 24 ( [...] Monse Ross MD; Location: [facility] CARDIAC CATHERIZATION N/A 10/03/2017 Procedure: CV Cor Angio; Surgeon: Delmer Dai MD; Location: [facility] ELBOW SURGERY Left GALLBLADDER SURGERY NASAL SEPTUM SURGERY UPPER GASTROINTESTINAL ENDOSCOPY N/A 10/05/2017 Procedure: EGD; Surgeon: Terry Weir MD; Location: [facility] MEDICAL PROCEDURE UNIT ALLERGIES No Known Allergies CURRENT MEDICATIONS Prior to Admission medications Medication Sig Start Date End Date Taking? Authorizing Provider aspirin 81 MG tablet Take 81 mg by mouth Daily. Yes Historical Provider, atorvaSTATin (LIPITOR) 80 MG tablet Take 1 tablet by mouth nightly. 11/10/17 Yes ADARSH Kendrick Cholecalciferol (VITAMIN D-3) 57643 units CAPS Take by mouth Once a [...] - Lives with his . 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 Pa lraa does not have a high arched palate. [...] cardiomyopathy. discussed di agnosis via polysomnography / vzq-cn-nomaji sleep testing. Today, I ordered a split-night [...] this chart may have been created with [employer] voice recognition software. Occasi onal wrong-word or sound-alike substitutions may have occurred due to the inherent canseco itations of voice recognition software. Please read the chart carefully and recognize, using context, where these substitutions have occurred. Dl Aguero Medica l Anaesthesiologist - 02/08/2018 8:00 AM PDTFormatting of this note might be different from the satish dowd. 02/08/18 0700 Poole Depression Inventory-II Depression Score 7 - Minimal depression Insomnia Severity Index Insomnia Severity Index 14 Florence Sleepiness Scale Sitting and reading 3 Watching [...] | | | | [address] [place] | | | | | | [address] | | | | | | | | +--------+ + + + + | 04/16/ | Office | Cardiology | Alin Anderson | | | 2019 | Visit | | MD [address] | | | | | | [address] | | | | | | [place] [address] | | | | | | [phone] | | | | | | | | +--------+ + + + + | 04/16/ | Procedure | Cardiology | | | | 2019 | visit | | | | +--------+ + + + + | 04/25/ | Office | Cardiology | Rocio Pearl, | | | 2019 | Visit | | [address] | | | | | | [address] [facility] [place] | | | | | | [address] | | | | | | | | +--------+ + + + + + + +--------+ + + | Name | Type | Priori | Associated Diagnoses | Order Schedule | | | | ty | | | + + +--------+ + + | * [facility] - | Outpatient | Routin [...]
--- OUTSIDE RECORDS SUMMARY | ~2020-03-04 | XMS | Encounter Summary ---
Demographics + + + | Address | [address] | | | [place] [address] | + + + | Home Phone [...] [place] | | | | | [address] | | + + + + + Care Team Providers + +------+ + | Care Vegetable Ii Farmworker Name | Role | Phone | + +------+ + | Amy Olivares MD | PCP | | + +------+ + Encounter Details +--------+ + + + + | Date | Type | Department | Care Team | Description | +--------+ + + + + | 02/14/ | Orders Only | [facility] [place] | Tamia Burleson W, | Chronic kidney | | 2020 | | NEPHROLOGY [address] | [address] | disease, stage IV | | | | [address] | [address] [place] | (severe) (HCC) | | | | [place], [place] | [place] [address] | (Primary Dx); Anemia | | | | [address] | [phone] | in chronic kidney | | | | [phone] | | disease, unspecified | | | | | | CKD stage | +--------+ + + + + Social [...] + documented as of this encounter Progress Sharon Aguilar RN - 02/15/2020 11:32 AM PDTLabs for upcoming nephrology appointment sent to: [facility] documented in this encounter Plan of Treatment [...] [place] | | | | | | [address] | | | | | | | | +--------+ + + + + | 04/16/ | Office | Cardiology | Alin Anderson | | | 2019 | Visit | | MD [address] | | | | | | [address] | | | | | | [place] [address] | | | | | | [phone] | | | | | | | | +--------+ + + + + | 04/16/ | Procedure | Cardiology | | | 2019 | visit | | | | +--------+ + + + + | 04/25/ | Office | Cardiology | Rocio Pearl, | | | 2019 | Visit | | [address] | | | | | | [place] | | | | | | [address] | | | | | | | | +--------+ + + + + + +------+--------+ + + | Name | Type | Priori | Associated Diagnoses | Order Schedule | | | | ty | | | + +------+--------+ + + | Parathyroid Hormone, | Lab | Routin | Chronic kidney | 1 Occurrences | | Intact | | e | disease, stage IV | starting 02/15/2020 | | | | | (severe) (HCC) | until 02/14/2021 | + +------+--------+ + + | Vitamin D, | Lab | Routin | Chronic kidney | 1 Occurrences | | Deficiency Screen | | e | disease, stage IV | starting 02/15/2020 | | (25-Hydroxy) | | | (severe) (HCC) | until 02/14/2021 | + +------+--------+ + + | CBC with | Lab | Routin | Chronic kidney | 1 Occurrences | | Differential | | e | disease, stage IV | starting 02/15/2020 | | | | | (severe) ([facility]) | until 02/14/2021 | | | | | Anemia in chronic | | | | | | kidney disease, | | | | | | unspecified CKD | | | | | | stage | | + +------+--------+ + + | Iron Profile | Lab | Routin | Chronic kidney | 1 Occurrences | | | | e | disease, stage IV | starting 02/15/2020 | | | | | (severe) (HCC) | until 02/14/2021 | | | | | Anemia in chronic | | | | | | kidney disease, | | | | | | unspecified CKD | | | | | | stage | | + +------+--------+ + + | Renal Function Panel | Lab | Routin | Chronic kidney | 1 Occurrences | | | | e | disease, stage IV | starting 02/15/2020 | | | | | (severe) ([facility]) | until 02/14/2021 | + +------+--------+ + + | Protein/Creatinine | Lab | Routin | Chronic kidney | 1 Occurrences | | Ratio, Urine | | e | disease, stage IV | starting 02/15/2020 | | | | | (severe) ([facility]) | until 02/14/2021 | + +------+--------+ + + documented as of this encounter Visit Diagnoses + + | Diagnosis | + + | Chronic kidney disease, stage IV (severe) ([facility]) - Primary Chronic kidney disease, | | Stage IV (severe) | + + | Anemia in chronic kidney disease, unspecified CKD stage | + + documented in this encounter"
--- OUTSIDE RECORDS SUMMARY | ~2020-03-04 | XMS | Encounter Summary ---
Demographics + + + | Address | [address] | | | [place] [address] | + + + | Home Phone | | + + + | Preferred Language | Unknown | + + + | Marital Status | | + + + | Christian Affiliation | Unknown | + + + | Race | Unknown | + + + | Ethnic Group | Unknown | + + + Author + + + | Author | [facility] | | | and [place] | + + + | Organization | [facility] | | | and [place] | + + + | Address | Unknown | + + + | Phone | Unavailable | + + + Support + + + + + | Name | Relationship | Address | Phone | + + + + + | [place] | [address] | [place] | | | | | [address] | | + + + + + Care Team Providers + +------+ + | Care High School Combination Teacher Name | Role | Phone | + +------+ + | Amy Olivares MD | PCP | | + +------+ + Encounter Details +--------+ + + + + | Date | Type | Department | Care Team | Description | +--------+ + + + + | 08/02/ | Orders Only | [facility] [place] | [place], | Chronic kidney | | 2019 | | NEPHROLOGY [address] | [address] | disease, stage IV | | | | [address] | [address] | (severe) (HCC) | | | | [place], [place] | [address] [place], [place] | (Primary Dx) | | | | [address] | [address] | | | | | [phone] | | | +--------+ + + + [...] this encounter Progress Sharon Aguilar RN - 08/02/2019 9:07 AM PSTLabs for upcoming nephrology appointment sent to: [facility] [...] [place] | | | | | | [id number] | | | | | | | | +--------+ + + + + | 04/16/ | Office | Cardiology | Alin Anderson | | | 2019 | Visit | | MD [address] | | | | | | [address] | | | | | | [place] [address] | | | | | | [phone] | | | | | | | | +--------+ + + + + | 04/16/ | Procedure | Cardiology | | | | 2019 | visit | | | | +--------+ + + + + | 04/25/ | Office | Cardiology | Rocio Pearl, | | | 2019 | Visit | | MD [address]yl [address] | | | | | | [address] [place], [place] | | | | | | [address] | | | | | | | [...] e | disease, stage IV | starting 08/02/2019 | | | | | (severe) (HCC) | until 08/01/2020 | + +------+--------+ + + | Protein/Creatinine | Lab | Routin | Chronic kidney | 1 Occurrences | | Ratio, Urine | | e | disease, stage IV | starting 08/02/2019 | | | | | (severe) (HCC) | until 08/01/2020 | + +------+--------+ + + documented as of this encounter Visit Diagnoses + + | Diagnosis | + + | Chronic kidney disease, stage IV (severe) (HCC) - Primary Chronic kidney disease, | | Stage IV (severe) | + + documented in this encounter"
--- OUTSIDE RECORDS SUMMARY | ~2020-03-04 | XMS | Encounter Summary ---
Demographics + + + | Address | [address] | | | [place] [address] | + + + | Home Phone [...] [place] | | | | | [address] | | + + + + + Care Team Providers + +------+ + | Care Packing Tractor Machine Operator Name | Role | Phone [...] | | involving | [address] | [place] | | | | | [place] | [place], [place] | [place], [place] | | | | | coronary | [address] | [address] | | | | | artery of | Phone: | Phone: | | | | | [place] heart | [phone] | [phone] | | | | | without | Fax: | Fax: | | | | | angina | [phone] | [phone] | | | | | pectoris | | | +--------+ + + + + + Encounter Details +--------+---------+ + + + | Date | Type | Department | Care Team | Description | +--------+---------+ + + + | 08/12/ | Office | [facility] | Randy Figueroa, | Coronary artery | | 2018 | Visit | MED CTR CARDIAC | MD [address] | disease involving | | | | REHABILITATION [address] | [place], | [place] coronary | | | | [address] [place] | [place] [address] | artery of [place] | | | | [place] [address] | [phone] | heart without angina | | | | [phone] | | pectoris (Primary | | | [...] of this encounter Progress Jonah Coker-Cheri Kendrick, RIPRAP WORKER - 08/12/2018 10:[address] [facility] [address] [facility] [address] Cardiac Rehab Date: 08/12/2018 Patient Information Patient Name: Bob Will Date of : 1955 Age: 62 y.o. Encounter Diagnoses Code Name Primary? I25.10 Coronary artery disease involving [place] coronary artery of [place] heart without angina pectoris Yes Number of Visits Approved: 34 Taken Medications Today? Yes Any Changes in Medications? No Any Problems to Report? No Denies any adverse symptoms during exercise. Ventricular paced rhythm without ectopy. Pre O2: 96%, Ex O2: 95%. SBP with no change during exertion. Compliant with medications and therapeutic lifestyle changes. Continue monitored exercise. Any abnormal vital signs or rhythm strips will be reported in progress note. Electronically signed by: Cheri Harvey RRT, 08/12/2018 11:00 Patient Name: Bob Will/: 1955/ ly signed by Cheri Harvey RRT at 08/12/2018 11:01 AM PSTdocumented in this en counter Plan of Treatment +--------+ + + + + | Date | Type | Specialty | Care Team | Description | +--------+ + + + + | 03/12/ | Office | Nephrology | [facility], | | | 2019 | Visit | | [address] | | | | | | [facility] | | | | | | [address] [place] | | | | | | [address] | | | | | | | | +--------+ + + + + | 04/16/ | Office | Cardiology | Alin Anderson | | 2019 | Visit | | MD Cheryl [address]reg[address] | | | | | | [address] | | | | | | [place] [address] | | | | | | [phone] | | | | | | | [...] [place] | | | | | | [address] | | | | | | | | +--------+ + + + + documented as of this encounter Visit Diagnoses + + | Diagnosis | + + | Coronary artery disease involving [place] coronary artery of [place] heart without | | angina pectoris - Primary | + + documented in this encounter"
--- OUTSIDE RECORDS SUMMARY | ~2020-03-04 | XMS | Encounter Summary ---
Demographics + + + | Address | [address] | | | [place] [address] | + + + | Home Phone [...] [place], [place] | | | | | [address] | | + + + + + Care Team Providers + +------+ + | Care Bondactor Machine Operator Name | Role | Phone [...] Echo | | | | | | [place], | [address] | | | | | Cardiomyopat | [place], HEATER HELPER | [place], | | | | | hy, | [address] | [place] | | | | | unspecified | [place] | [address] | | | | | type (HCC) | [place], | Phone: | | | | | Coronary | [place] | [phone] | | | | | artery | [address] | Fax: | | | | | disease, | Phone: | [phone] | | | | | angina | [phone] | | | | | | presence | Fax: | | | | | | unspecified, | [phone] | | | | | | unspecified | | | | | | | vessel or | | | | | | | lesion type, | | | | | | | unspecified | | | | | | | whether | | | | | | | [place] or | | | | | | | transplanted | | | | | | | heart | | | | | | | Procedures | | | | | | | ECHO | | | | | | | Complete MI | | | | | | [...] + + + + Reason for Visit Auth/Cert +--------+--------+ + [...] | +--------+ + + + + | 06/04/ | Hospital | [facility] | Jenny, | Cardiomyopathy, | | 2017 | Encounter | MED CTR ECHO [address] | [address] | unspecified type | | | | [place] | [place], | ([facility]); Coronary | | | | [place] [address] | [place] [address] | artery disease, | | | | [phone] | [phone] | angina presence | | | | | | unspecified, | | | | | [place], | unspecified vessel | | | | | Technologist | or lesion type, | | | | | | unspecified whether | | | | | | [place] or | | | | | | transplanted heart | +--------+ + + + + Social [...] + + +---------+ + + | acetaminophen | Take 500 mg by mouth | | 0 | 04/02/20 | | | (TYLENOL) 500 mg | as needed. | | | 17 | 7 | | tablet | | | | [...] tablet by | 60 | 3 | 05/04/20 | | | 3.125 mg tablet | mouth 2 times daily | tablet | | 17 | 8 | | | (with breakfast & | | | | | | | dinner). | | | | | + + + +---------+ + + | cholecalciferol | Take by mouth 2 | | 0 | 04/02/20 | | | (CHOLECALCIFEROL) | times daily. | | | 17 | 7 | | 1000 units TABS | | | | | | + + + +---------+ + + | clopidogrel | Take 1 tablet by | 90 | 3 | 05/04/20 | | | (PLAVIX) 75 mg | mouth Daily. | tablet | | 17 | 7 | | tablet | | | | [...] +---------+ + + | lisinopril | Take 2 tablets by | 180 | 3 | 05/04/20 | | | (PRINIVIL, ZESTRIL) | mouth Daily. | tablet | | 17 | 7 | | 5 mg tablet | | | | | | + + + +---------+ + + | melatonin 3 mg | Take by mouth | | 0 | 04/02/20 | | | TABS | nightly as needed. | | | 17 | 7 | + + + +---------+ + + | metFORMIN | Take 500 mg by mouth | | 0 | | | | (GLUCOPHAGE) 500 mg | 2 times daily. | | | | 8 | | tablet | | | | | | + + + +---------+ + + | oxyCODONE | Take by mouth as | | 0 | 04/02/20 | | | (ROXICODONE) 5 mg | needed. | | | 17 | 7 | | tablet | | | | [...] | +--------+ + + + + | 07/06/ | Office | Nephrology | [place], | | | 2019 | Visit | | [address] | | | | | | [address] | | | | | | [address] [place] | | | | | | [address] | | | | | | | | +--------+ + + + + | 04/16/ | Office | Cardiology | Alin Anderson | | | 2019 | Visit | | MD Cheryl Arreg[address] | | | | | | [address] | | | | | | [place] [address] | | | | | | [phone] | | | | | | | [...] [place] | | | | | | [address] | | | | | | | | +--------+ + + + + documented as of this encounter Procedures + +--------+ + + + | Procedure Name | Priori | Date/Time | Associated Diagnosis | Comments | | | ty | | | | + +--------+ + + + | ECHO COMPLETE | Routin | 06/04/2017 | Cardiomyopathy, | Results for this | | | e | 8:32 AM | unspecified type | procedure are in the | | | | PDT | ([facility]) Coronary | results section. | | | | | artery disease, | | | | | | angina presence | | | | | | unspecified, | | | | | | unspecified vessel | | | | | | or lesion type, | | | | | | unspecified whether | | | | | | [place] or | | | | | | transplanted heart | | + +--------+ + + + documented in this encounter Results ECHO Complete (06/04/2017 8:32 [...] Number J Patient Number | | | [id number] Date of Study 06/04/2017 Visit Number | | | [id number] Referring | | | Physician THERESE SY Number Date of 1955 | | | Mail Deliverer CHUCK VALVERDE, | | | RD Age | | | 61 year(s) Interpreting LAUREN | | | MD NEMO | | | Press Puller Gender Male Nurse | | | Stress Manager Content Procedure | | | Type of Study TTE procedure: ECHO Complete. Procedure dateDate: | | | 06/04/2017Start: 07:51 AM Technical Quality: Good visualizationStudy | | | Location: Echo LabIndications: CARDIOMYOPATHY 425.4/ I42.9 and cAD | | | [place] CORONARY AOIBEC786.01/ I25.10.Patient Status: RoutineHeight: 70 | | | [...] Structures | | | Left Atrium EF Rqyyaoorv59% Left Ventricle Diastolic | | | Dimension: [...] | | | | | | EF Guhxzgakd66% | | | | | | Left Ventricle | | | | | | Diastolic Dimension: 5.6 cm | | | Septum Diastolic: 0.8 cm | | | PW Diastolic: 0.9 cm | | | EF Calculated: 53% | | | | | + + --+ + + | Procedure Note | + + | Sebastian, Rad Results In - 06/04/2017 9:18 AM [facility] Transthoracic Echocardiography Report | | (TTE) Demographics Patient Name MIKE VELASQUEZ Room Number J Patient | | Number [id number] Date of Study 06/04/2017 Visit Number [id number] | | Referring Physician THERESE SY Number Date of | | 1955 Mail Deliverer CHUCK VALVERDE, | | [facility] Age 61 year(s) Interpreting | | LAUREN CHESTER MD Press Puller Gender Male | | Nurse Stress TechnicianProcedureType of Study | | TTE procedure: ECHO Complete.Procedure dateDate: 06/04/2017Start: 07:51 AMTechnical | | Quality: Good visualizationStudy Location: Echo LabIndications: CARDIOMYOPATHY 425.4/ | | I42.9 and cAD [place] CORONARY UDMKGJ128.01/ I25.10.Patient Status: RoutineHeight: 70 | | inchesWeight: [...] > 50%.Structures | | Left Atrium EF Mjbzgtoyq67% Left Ventricle Diastolic Dimension: 5.6 cm Septum [...] Left Atrium | | | | EF Oqlcwlaie10% | | | | Left Ventricle | [...] + + | Cardiomyopathy, unspecified type (HCC) | + + | Coronary artery disease, angina presence unspecified, unspecified vessel or lesion | | type, unspecified whether [place] or transplanted heart | + + documented in this encounter"
--- OUTSIDE RECORDS SUMMARY | ~2020-03-04 | XMS | Encounter Summary ---
Demographics + + + | Address | [address] | | | [place] [address] | + + + | Home Phone | | + + + | Preferred Language | Unknown | + + + | Marital Status | | + + + | Anglican Affiliation | Unknown | + + + | Race | Unknown | + + + | Ethnic Group | Unknown | + + + Author + + + | Author | [facility] | | | and [place] | + + + | Organization | [facility] | | | and [place] | + + + | Address | Unknown | + + + | Phone | Unavailable | + + + Support + + + + + | Name | Relationship | Address | Phone | + + + + + | Venice Will | ECON | [place], [place] | | | | | [address] | | + + + + + Care Team Providers + +------+ + | Care Chief Radiology Name | Role | Phone | + +------+ + PCP | Unavailable | + +------+ + Reason for Visit + + + | Reason | Comments | + + + | Device Check | Billed | | (Remote) | | + + + Encounter Details +--------+ + + + + | Date | Type | Department | Care Team | Description | +--------+ + + + + | 06/06/ | Implant | [facility] | Randy Figueroa, | Implantable | | 2018 | Monitor | CARDIOLOGY [address] | [address] | defibrillator | | | | [place], | [place], | reprogramming/check | | | | [place] [address] | [place] [address] | (Primary Dx); INNER TUBE TUBER MACHINE OPERATOR-D | | | | [phone] | [phone] | (AICD) Medtronic | | | | | | 10/16/17 [facility] Wilner; | | | | | | Congestive heart | | | | | | failure, unspecified | | [...] encounter Procedure Notes Randy Figueroa MD - 06/06/2018 11:59 PM PDTAssociated Order(s): DEVICE INTERROGATION- R EMOTEProcedure(s): DEVICE INTERROGATION- REMOTEPre-Procedure Diagnose(s): Implantable defibr illator reprogramming/check; Biventricular ICD (implantable cardioverter-defibrillator) in hannah aldridge; Congestive heart failure, unspecified HF chronicity, unspecified heart failure type (H CC)Date of Remote Interrogation: 04/20/18 Refer to Paceart documentation and remote PDF scanned into [employer] for remote interrogation re sults. Data collected by Kelly Rodriguez RN Presenting rhythm: sinus rhythm atrial sensed ventricular paced 67-77 beats with a PVC. 0 mode switch episodes accounting for 0.0% of the time. No episodes. PVC singles 45.0/hour PVC runs 12.5/hour Histogram good. Battery longevity 9.4 years. Apparent normal and stable device function. Device interrogation due in office in March 2019. documented in this encounter Plan of Treatment +--------+ + + + + | Date | Type | Specialty | Care Team | Description | +--------+ + + + + | 03/12/ | Office | Nephrology | Litzy, | | | 2019 | Visit | | ADARSH [address] | | | | | | [facility] | | | | | | [address] [place] | | | | | | [address] | | | | | | | | +--------+ + + + + | 04/16/ | Office | Cardiology | Alin Anderson | | | 2019 | Visit | | MD Cheryl Arreguin | | | | | | [address] | | | | | | [place] [address] | | | | | | [phone] | | | | | | | [...] [place] | | | | | | [address] | | | | | | | | +--------+ + + + + documented as of this encounter Procedures + +--------+ + + + | Procedure Name | Priori | Date/Time | Associated Diagnosis | Comments | | | ty | | | | + +--------+ + + + | DEVICE | Routin | 06/06/2018 | Implantable | Results for this | | INTERROGATION- | e | 11:59 PM | defibrillator | procedure are in the | | REMOTE | | PDT | reprogramming/check | results section. | | | | | INNER TUBE TUBER MACHINE OPERATOR-D (AICD) | | | | | | Medtronic 10/16/17 | | | | | | EULOGIO Darby | | | | | | Congestive heart | | | | | | failure, unspecified | | | | | | HF chronicity, | | | | | | unspecified heart | | | | | | failure type (HCC) | | + +--------+ + + + documented in this encounter Results Device Interrogation - Remote (06/06/2018 11:59 PM PDT) + + + | Narrative | Performed At | + + + | Randy | [facility] | | MD [place] 05/31/2018 14:13Date of Remote Interrogation: | | | 04/20/18 Refer to Paceart documentation and remote PDF scanned into | | | [facility] for remote interrogation results. Data collected by Kelly Samuel | | | ALFONSO Rodriguez Presenting rhythm: sinus rhythm atrial sensed ventricular | | | paced 67-77 beats with a PVC.0 mode switch episodes accounting for | | | 0.0% of the time.No episodes. PVC singles 45.0/hour PVC | | | runs 12.5/hourHistogram good. Battery longevity 9.4 | | | years.Apparent normal and stable device function.Device interrogation | | | due in office in March 2019. | | |No episodes. | | |PVC singles 45.0/hour | | |PVC runs 12.5/hour | | |Histogram good. Battery longevity 9.4 years. | | |Apparent normal and stable device function. | | |Device interrogation due in office in March 2019. | | | | | | | [...] implantable cardiac defibrillator | + + | INNER TUBE TUBER MACHINE OPERATOR-D (AICD) Medtronic 10/16/17 EULOGIO Darby | + + | Congestive heart failure, unspecified HF chronicity, unspecified heart failure type | | (HCC) | + + documented in this encounter"
--- OUTSIDE RECORDS SUMMARY | ~2020-03-04 | XMS | Encounter Summary ---
Demographics + + + | Address | [address] | | | [place] [address] | + + + | Home Phone | | + + + | Preferred Language | Unknown | + + + | Marital Status | | + + + | Lutheran Affiliation | Unknown | + + + | Race | Unknown | + + + | Ethnic Group | Unknown | + + + Author + + + | Author | [facility] | | | and [place] | + + + | Organization | [facility] | | | and [place] | + + + | Address | Unknown | + + + | Phone | Unavailable | + + + Support + + + + + | Name | Relationship | Address | Phone | + + + + + | Venice Will | ECON | [place], [place] | | | | | [address] | | + + + + + Care Team Providers + +------+ + | Care Ui Ux Developer Name | Role | Phone | + +------+ + PCP | Unavailable | + +------+ + Reason for Visit +--------+--------+ + | Reason | Onset | Comments | | | Date | | +--------+--------+ + | Other | 12/01/ | appointment confusion | | | 2018 | | +--------+--------+ + Encounter Details +--------+ + + + + | Date | Type | Department | Care Team | Description | +--------+ + + + + | 12/01/ | Telephone | [facility] | Jenny, | Other (appointment | | 2017 | | CARDIOLOGY [address] | ADARSH [address] | confusion) | | | | [place], | [place], | | | | | [place] [address] | [place] [address] | | | | | [phone] | [phone] | | | | | | | [...] Telephone Encounter - Lilian Machado RN - 12/01/2017 10:03 AM Jim just wanted us t o know what had happened and to try to figure out how it happened and why he was not notifie d that the appointment had been cancelled. Details of possibly how and why it had happened were discussed and he was thanked for his side of the story. He states that it was ok and t hat he will see us in January as scheduled. ...........................................Lilian Machado RN on 12/01/17 at 10:06 elephone Encounter - Lilian Machado RN - 12/01/2017 8:06 AM PDTRobert came to the office today for an appo intment that was originally scheduled for today at 7:45am. He was seen in the office on 11/11 and at that time was advised to come back for a 2 month OC/THR, this is scheduled for 01-13-18. The appointment for 12/01 was cancelled at that time due to not being needed and he do es not remember being told that this would be cancelled. AVS was given to patient on that d ay. Patient called after he left the office and left a message on [employer]. He would like to speak with nursing staff about the miss communication. Left message at home number for p brenda to return my call. ...........................................Lilian Machado RN on 12/01/17 at 8:12 documented in this encounter Plan of Treatment [...] [place] | | | | | | [address] | | | | | | | | +--------+ + + + + | 04/16/ | Office | Cardiology | Alin Anderson | | | 2019 | Visit | | MD Cheryl Arreguin | | | | | | [address] | | | | | | [place] [address] | | | | | | [phone] | | | | | | | [...] [place] | | | | | | [address] | | | | | | | | +--------+ + + + + documented as of this encounter Visit Diagnoses Not on filedocumented in this encounter"
--- OUTSIDE RECORDS SUMMARY | ~2020-03-04 | XMS | Encounter Summary ---
Demographics + + + | Address | [address] | | | [place] [address] | + + + | Home Phone [...] [place] | | | | | [address] | | + + + + + Care Team Providers + +------+ + | Care Process Equipment Operator Name | Role | Phone | [...] | | involving | [address] | [place] | | | | | ambler | [address] [address] | [place], [place] | | | | | coronary | [address] | [address] | | | | | artery of | Phone: | Phone: | | | | | ambler heart | [phone] | [phone] | | | | | without | Fax: | Fax: | | | | | angina | [phone] | [phone] | | | | | pectoris | | | +--------+ + + + + + Encounter Details +--------+---------+ + + + | Date | Type | Department | Care Team | Description | +--------+---------+ + + + | 08/05/ | Office | [facility] | Randy Figueroa, | Coronary artery | | 2018 | Visit | [facility] CARDIAC | MD [address] | disease, angina | | | | REHABILITATION [address], | presence | | | | [address] [place] | [place] [address] | unspecified, | | | | [place] [address] | [phone] | unspecified vessel | | | | [phone] | | or lesion type, | | | | | | unspecified whether | | | | | | ambler or | | | | | | [...] this encounter Progress Notes Gael Woo - 08/05/2018 10:[address] [facility] CARDIAC REHABILITATION [address] [place] [address] Cardiac Rehab Date: 08/05/2018 Patient Information Patient Name: Bob Will Date of : 1955 Age: 62 y.o. Encounter Diagnoses Code Name Primary? I25.10 Coronary artery disease, angina presence unspecified, unspecified vessel or lesi on type, unspecified whether ambler or transplanted heart Yes Z98.61 Post PTCA Number of Visits Approved: 34 Taken Medications Today? Yes Any Changes in Medications? No Any Problems to Report? No Denies any adverse symptoms during exercise. Ventricular paced rhythm without ectopy. Pre O2: 94%, Ex O2: 97%. SBP with no change during exertion. Compliant with medications and therapeutic lifestyle changes. Continue monitored exercise. Any abnormal vital signs or rhythm strips will be reported in progress note. Electronically signed by: Gael Woo, 08/05/2018 14:16 Patient Name: Bob Will/: 1955/ documented in [...] [place] | | | | | | [address] | | | | | | | | +--------+ + + + + | 04/16/ | Office | Cardiology | Alin Anderson | | | 2019 | Visit | | MD Cheryl Arreguin | | | | | | [address] | | | | | | [place] [address] | | | | | | [phone] | | | | | | | [...] [place] | | | | | | [address] | | | | | | | | +--------+ + + + + + + +--------+ + + | Name | Type | Priori | Associated Diagnoses | Order Schedule | | | | ty | | | + + +--------+ + + | [facility] | Outpatient | Routin | Coronary artery | Ordered: 05/21/2018 | | | Referral | e | disease involving | | | | | | ambler coronary | | | | | | artery of ambler | | | | | | heart without angina | | | | | | pectoris | | + + +--------+ + + documented as of this encounter Visit Diagnoses + + | Diagnosis | + + | Coronary artery disease, angina presence unspecified, unspecified vessel or lesion | | type, unspecified whether ambler or transplanted heart - Primary | + + | Post PTCA Postsurgical percutaneous transluminal coronary angioplasty status | + + documented in this encounter"
--- OUTSIDE RECORDS SUMMARY | ~2020-03-04 | XMS | Encounter Summary ---
Demographics + + + | Address | [address] | | | [place] [address] | + + + | Home Phone [...] [place], [place] | | | | | [address] | | + + + + + Care Team Providers + +------+ + | Care Chief Ultrasound Technologist Name | Role | Phone | + [...] Monitor | CARDIOLOGY [address] | [address] [place] | Interrogation | | | | [place], | [place], | (Primary Dx); SOFTWARE ASSET MANAGEMENT ANALYST-D | | | | [place] [address] | [place] [address] | (AICD) Medtronic | | | | [phone] | [phone] | 10/16/17 [facility] Wilner; | | | | | [...] Paceart documentation and remote PDF scanned into [facility] for remote interrogation re suljuan. Data collected [...] | 03/12/ | Office | [facility] | [facility] | [facility] | Visit | | ADARSH [address] | | | | | | [facility] | | | | | | [address] [...] | | | | | [place] [address] | | | | | | [phone] | | | | | | | [...] [place] | | | | | | [address] | | | | | | | [...] | e | 11:59 PM | Interrogation SOFTWARE ASSET MANAGEMENT ANALYST-D | procedure are in the | | REMOTE | | PDT | ([facility]) Medtronic | results section. | | [...] | Randy | DONNA | | MD Carloina 11/05/2018 10:33Date of Remote Interrogation: | | | 10/19/18 Refer to Paceart documentation and remote PDF scanned into | | | [facility] for remote interrogation results. Data collected [...] + + | Performing | Address | City[facility] | Phone Number | | Organization | | | | + +---------+ + + | [facility] | | | | + +---------+ + + documented in this encounter Visit Diagnoses + + | Diagnosis | + + | Remote Device Interrogation - Primary Fitting and adjustment of automatic implantable | | cardiac defibrillator | + + | SOFTWARE ASSET MANAGEMENT ANALYST-D (AICD) Medtronic 10/16/17 EULOGIO Darby | + + | Ischemic cardiomyopathy Other specified forms of chronic ischemic heart disease | + + documented in this encounter"
--- OUTSIDE RECORDS SUMMARY | ~2020-03-04 | XMS | Encounter Summary ---
Demographics + + + | Address | [address] | | | [place] [address] | + + + | Home Phone [...] [place] | | | | | [address] | | + + + + + Care Team Providers + +------+ + | Care Release Engineer Name | Role | Phone | [...] Description | +--------+--------+ + + + | 12/12/ | Refill | [facility] | Jenny, | Medication Refill | | 2020 | | CARDIOLOGY [address] | ADARSH Santo [address] | | | | | [place], | [place], | | | | | [place] [address] | [place] [address] | | | | | [phone] | [phone] | | | | | | | [...] | | | | | [address] [place] | | | | | | [address] | | | | | | | | +--------+ + + + + | 04/16/ | Office | Cardiology | Alin Anderson | | | 2019 | Visit | | MD [address] | | | | | | [address] | | | | | | [place] [address] | | | | | | [phone] | | | | | | | [...] [place] | | | | | | [address] | | | | | | | | +--------+ + + + + documented as of this encounter Visit Diagnoses Not on filedocumented in this encounter"
--- OUTSIDE RECORDS SUMMARY | ~2020-03-04 | XMS | Encounter Summary ---
Demographics + + + | Address | [address] | | | [place] [address] | + + + | Home Phone | | + + + | Preferred Language | Unknown | + + + | Marital Status | | + + + | Anabaptist Affiliation | Unknown | + + + | Race | Unknown | + + + | Ethnic Group | Unknown | + + + Author + + + | Author | [facility] | | | and [place] | + + + | Organization | [facility] | | | and [place] | + + + | Address | Unknown | + + + | Phone | Unavailable | + + + Support + + + + + | Name | Relationship | Address | Phone | + + + + + | Venice Will | ECON | [place] | | | | | [address] | | + + + + + Care Team Providers + +------+ + | Care Car Whacker Name | Role | Phone | + +------+ + PCP | Unavailable | + +------+ + Reason for Visit + + + | Reason | Comments | + + + | Device Check | [facility] | | (Remote) | | + + + Encounter Details +--------+ + + + + | Date | Type | Department | Care Team | Description | +--------+ + + + + | 06/06/ | Implant | [facility] | Rahullindacathy Lindarahul, | Implantable | | 2017 | Monitor | CARDIOLOGY [address] | [address] | defibrillator | | | | [place], | [place], | reprogramming/check | | | | [place] [address] | [place] [address] | (Primary Dx); SORTER OPERATOR-D | | | | [phone] | [phone] | (AICD) Medtronic | | | | | | 10/16/17 [facility] Wilner; | | | | | | Congestive heart | | | | | | failure, unspecified | | | | | | HF chronicity, | | | | | | unspecified heart | | | | | | failure type (HCC); | | | | | | Ischemic [...] HF chronicity, unspecified heart failure type (H CC); Ischemic cardiomyopathyDate of Remote Interrogation: 05/01/18 Refer to Paceart documentation and remote PDF scanned into [employer] for remote interrogation re sults. Data collected by Kelly Rodriguez RN [employer] transmission. Presenting rhythm: sinus rhythm atrial sensed ventricular paced 80-81 beats. 0 mode switch episodes accounting for 0.0% of the time. 0 atrial high rate episodes. 2 ventricular high rate episodes. The longest occurred 04/27/18 at 1:34 AM for 2 minutes 1 second. EGM is consistent with ventricular tachycardia between 175-210 beats. PVC singles 54.4/hour PVC runs 15.5/hour Histogram good. Battery longevity 9.5 years. Apparent normal and [...] [place] | | | | | | [address] | | | | | | | | +--------+ + + + + | 04/16/ | Office | Cardiology | Alin Anderson | | | 2019 | Visit | | MD Cheryl Arreguin | | | | | | [address] | | | | | | [place] [address] | | | | | | [phone] | | | | | | | [...] [place] | | | | | | [address] | | | | | | | [...] results section. | | | | | SORTER OPERATOR-D (AICD) | | | | | | Medtronic 10/16/17 | | | | | | EULOGIO Darby | | | | | | Congestive heart | | | | | | failure, unspecified | | | | | | HF chronicity, | | | | | | unspecified heart | | | | | | failure type (HCC) | | | | | | Ischemic | | | | | | cardiomyopathy | | + +--------+ + + + documented in this encounter Results Device Interrogation - Remote (06/06/2018 11:59 PM PDT) + + + | Narrative | Performed At | + + + | Randy | DONNA | | MD [place] 05/31/2018 14:19Date of Remote Interrogation: | | | 05/01/18 Refer to [facility] documentation and remote PDF scanned into | | | [employer] for remote interrogation results. Data collected by Kelly Samuel | | | ALFONSO Rodriguez [employer] transmission. Presenting rhythm: sinus | | | rhythm atrial sensed ventricular paced 80-81 beats.0 mode switch | | | episodes accounting for 0.0% of the time.0 atrial high rate episodes. | | | 2 ventricular high rate episodes. The longest occurred 04/27/18 at | | | 1:34 AM for 2 minutes 1 second. EGM is consistent with ventricular | | | tachycardia between 175-210 beats.PVC singles 54.4/hour PVC | | | runs 15.5/hourHistogram good. Battery longevity 9.5 | | | years.Apparent normal and stable device function.Device interrogation | | | due in office in March 2019. | | |1:34 AM for 2 minutes 1 second. EGM is consistent with | | |ventricular tachycardia between 175-210 beats. | | |PVC singles 54.4/hour | | |PVC runs 15.5/hour | | |Histogram good. Battery longevity 9.5 years. | | |Apparent normal and stable device function. | | |Device interrogation due in office in March 2019. | | | | | + + [...] implantable cardiac defibrillator | + + | SORTER OPERATOR-D (AICD) Medtronic 10/16/17 EULOGIO Cabezasgideon | + + | Congestive heart failure, unspecified HF chronicity, unspecified heart failure type | | (HCC) | + + | Ischemic cardiomyopathy Other specified forms of chronic ischemic heart disease | + + documented in this encounter"
--- OUTSIDE RECORDS SUMMARY | ~2020-03-04 | XMS | Encounter Summary ---
Demographics + + + | Address | [address] | | | [place] [address] | + + + | Home Phone [...] [place], [place] | | | | | [address] | | + + + + + Care Team Providers + +------+ + | Care Membership Counselor Name | Role | Phone | + +------+ + PCP | Unavailable | + +------+ + Encounter Details +--------+ + + + + | Date | Type | Department | Care Team | Description | +--------+ + + + + | 04/26/ | Abstract | [facility] [place] | Jenny, | | | 2018 | | CARDIOLOGY [address] | ADARSH [address] | | | | | [place], | [place], | | | | | [place] [address] | [place] [address] | | | | | [phone] | [phone] | | | | | | | [...] [place] | | | | | | [address] | | | | | | | | +--------+ + + + + | 04/16/ | Office | Cardiology | Alin Anderson | | | 2019 | Visit | | MD Cheryl Arreguin | | | | | | [address] | | | | | | [place] [address] | | | | | | [phone] | | | | | | | [...] [place] | | | | | | [address] | | | | | | | [...] | EXTERNAL LAB: [facility]ESSI | Routin | 04/22/2018 | | Results [...] this | | MAGNESIUM | e | | | procedure are [...] | EXTERNAL LAB: CBC | Routin | 04/22/2018 | | Results for this | | | e | | | procedure are in the | | | | | | results section. | + +--------+ + + + | EXTERNAL LAB: CBC | Routin | 04/22/2018 | | Results [...] this | | DIFFERENTIAL | e | | | procedure are [...] + + documented in this encounter Results CBC with Differential (04/22/2018) + +-------+ + + + | Component | Value | Ref Range | Performed | Pathologist | | | | | At | Signature | + +-------+ + + + | MCH | 30.2 | 27.0 - 31.0 pg | | | + +-------+ + + + | MCHC | 32.6 | 32.0 - 36.0 % | | | + +-------+ + + + | % Basophils | 0.4 | 0.0 - 2.0 % | | | + +-------+ + + + + + | Specimen | + + | Blood | + + CMP/ISTAT (04/22/2018) + +-------+ + + + | Component | Value | Ref Range | Performed | Pathologist | | | | | At | Signature | + +-------+ + + + | Globulin | 2.9 | 2.3 - 3.5 | | | + +-------+ + + + + + | Specimen | + + | Blood | + + Hemoglobin A1C (04/22/2018) + +---------+ + + + | Component | Value | Ref Range | Performed | Pathologist | | | | | At | Signature | + +---------+ + + + | Hemoglobin | 6.0 (A) | 0.0 - 5.6 % | EXTERNAL | | | A1c | | | LAB | | + +---------+ + + + + + | Specimen | + + | Blood | + + + +---------+ + + | Performing | Address | City/State/Zipcode | Phone Number | | Organization | | | | + +---------+ + + | EXTERNAL LAB | | | | + +---------+ + + External Lab: CBC (04/22/2018) + +---------+ + + + | Component | Value | Ref Range | Performed | Pathologist | | | | | At | Signature | + +---------+ + + + | PLT, | 171 | 150 - 400 | EXTERNAL | | | External | | | LAB | | + +---------+ + + + | Neutrophils | 72.3 | 44 - 74 | EXTERNAL | | | %, | | | LAB | | | External | | | | | + +---------+ + + + | Lymphocytes | 17.5 | 15 - 42 | EXTERNAL | | | %, | | | LAB | | | External | | | | | + +---------+ + + + | Monocytes | 7.7 | 4 - 13 | EXTERNAL | | | %, External | | | LAB | | + +---------+ + + + | Eosinophils | 1.8 | 0 - 7 | EXTERNAL | | | %, | | | LAB | | | External | | | | | + +---------+ + + + | Neutrophils | 7.3 (A) | 1.2 - 7 | EXTERNAL | | | , Absolute, | | | LAB | | | External | | | | | + +---------+ + + + | Lymphocytes | 1.8 | 0.6 - 3.4 | EXTERNAL | | | , Absolute, | | | LAB | | | External | | | | | + +---------+ + + + | Monocytes, | 0.8 | 0.2 - 1 | EXTERNAL | | | Absolute, | | | LAB | | | External | | | | | + +---------+ + + + | Eosinophils | 0.2 | 0 - 0.5 | EXTERNAL | | | , Absolute | | | LAB | | + +---------+ + + + | Basophils, | 0.0 | 0 - 0.2 | EXTERNAL | | | Absolute | | | LAB | | + +---------+ + + + | RDW, | 13.8 | 11.2 - 16.2 | EXTERNAL | | | External | | | LAB | | + +---------+ + + + + +---------+ + + | Performing | Address | City/State/Zipcode | Phone Number | | Organization | | | | + +---------+ + + | EXTERNAL LAB | | | | + +---------+ + + External Lab: DONTE (04/22/2018) + +-------+ + + + | Component | Value | Ref Range | Performed | Pathologist | | | | | At | Signature | + +-------+ + + + | DONTE, | 19 | 7 - 23 | EXTERNAL | | | External | | | LAB | | + +-------+ + + + + +---------+ + + | Performing | Address | City/State/Zipcode | Phone Number | | Organization | | | | + +---------+ + + | EXTERNAL LAB | | | | + +---------+ + + External Lab: Glucose (04/22/2018) + +---------+ + + + | Component | Value | Ref Range | Performed | Pathologist | | | | | At | Signature | + +---------+ + + + | Glucose, | 119 (A) | 71 - 109 | EXTERNAL | | | External | | | LAB | | + +---------+ + + + + +---------+ + + | Performing | Address | City/State/Zipcode | Phone Number | | Organization | | | | + +---------+ + + | EXTERNAL LAB | | | | + +---------+ + + External Lab: ALT (04/22/2018) + +-------+ + + + | Component | Value | Ref Range | Performed | Pathologist | | | | | At | Signature | + +-------+ + + + | ALT, | 21 | 9 - 57 | EXTERNAL | | | External | | | LAB | | + +-------+ + + + + +---------+ + + | Performing | Address | City/State/Zipcode | Phone Number | | Organization | | | | + +---------+ + + | EXTERNAL LAB | | | | + +---------+ + + External Lab: AST (04/22/2018) + +-------+ + + + | Component | Value | Ref Range | Performed | Pathologist | | | | | At | Signature | + +-------+ + + + | AST, | 15 | 14 - 44 | EXTERNAL | | | External | | | LAB | | + +-------+ + + + + +---------+ + + | Performing | Address | City/State/Zipcode | Phone Number | | Organization | | | | + +---------+ + + | EXTERNAL LAB | | | | + +---------+ + + External Lab: Alkaline Phosphatase (04/22/2018) + +-------+ + + + | Component | Value | Ref Range | Performed | Pathologist | | | | | At | Signature | + +-------+ + + + | ALP, | 106 | 45 - 129 | EXTERNAL | | | External | | | LAB | | + +-------+ + + + + +---------+ + + | Performing | Address | City/State/Zipcode | Phone Number | | Organization | | | | + +---------+ + + | EXTERNAL LAB | | | | + +---------+ + + External Lab: Bilirubin, Total (04/22/2018) + +-------+ + + + | Component | Value | Ref Range | Performed | Pathologist | | | | | At | Signature | + +-------+ + + + | Bilirubin, | 0.4 | 0.2 - 1.3 | EXTERNAL | | | Total, | | | LAB | | | External | | | | | + +-------+ + + + + +---------+ + + | Performing | Address | City/State/Zipcode | Phone Number | | Organization | | | | + +---------+ + + | EXTERNAL LAB | | | | + +---------+ + + External Lab: Albumin (04/22/2018) + +-------+ + + + | Component [...] Protein, Total (04/22/2018) + +-------+ + + + | Component | Value | Ref Range | Performed | Pathologist | | | | | At | Signature | + +-------+ + + + | Protein, | 7.1 | 6.5 - 8.2 | EXTERNAL | | | Total, | | | LAB | | | External | | | | | + +-------+ + + + + +---------+ + + | Performing | Address | City/State/Zipcode | Phone Number | | Organization | | | | + +---------+ + + | EXTERNAL LAB | | | | + +---------+ + + External Lab: Magnesium (04/22/2018) + +-------+ + + + | Component | Value | Ref Range | Performed | Pathologist | | | | | At | Signature | + +-------+ + + + | Magnesium, | 2.2 | 2 - 2.6 | EXTERNAL | | | External | | | LAB | | + +-------+ + + + + +---------+ + + | Performing | Address | City/State/Zipcode | Phone Number | | Organization | | | | + +---------+ + + | EXTERNAL LAB | | | | + +---------+ + + External Lab: Calcium (04/22/2018) + +---------+ + + + | Component | Value | Ref Range | Performed | Pathologist | | | | | At | Signature | + +---------+ + + + | Calcium, | 8.3 (A) | 8.4 - 10.5 | EXTERNAL | | | External | | | LAB | | + +---------+ + + + + +---------+ + + | Performing | Address | City/State/Zipcode | Phone Number | | Organization | | | | + +---------+ + + | EXTERNAL LAB | | | | + +---------+ + + External Lab: Carbon Dioxide (04/22/2018) + +-------+ + + + | Component | Value | Ref Range | Performed | Pathologist | | | | | At | Signature | + +-------+ + + + | Carbon | 23 | 21 - 32 | EXTERNAL | | | Dioxide, | | | LAB | | | External | | | | | + +-------+ + + + + +---------+ + + | Performing | Address | City/State/Zipcode | Phone Number | | Organization | | | | + +---------+ + + | EXTERNAL LAB | | | | + +---------+ + + External Lab: Chloride (04/22/2018) + +-------+ + + + | Component | Value | Ref Range | Performed | Pathologist | | | | | At | Signature | + +-------+ + + + | Chloride, | 105 | 98 - 107 | EXTERNAL | | | External | | | LAB | | + +-------+ + + + + +---------+ + + | Performing | Address | City/State/Zipcode | Phone Number | | Organization | | | | + +---------+ + + | EXTERNAL LAB | | | | + +---------+ + + External Lab: Potassium (04/22/2018) + +-------+ + + + | Component | Value | Ref Range | Performed | Pathologist | | | | | At | Signature | + +-------+ + + + | Potassium, | 5.0 | 3.5 - 5.1 | EXTERNAL | | | External | | | LAB | | + +-------+ + + + + +---------+ + + | Performing | Address | City/State/Zipcode | Phone Number | | Organization | | | | + +---------+ + + | EXTERNAL LAB | | | | + +---------+ + + External Lab: Sodium (04/22/2018) + +-------+ + + + | Component | Value | Ref Range | Performed | Pathologist | | | | | At | Signature | + +-------+ + + + | Sodium, | 138 | 133 - 145 | EXTERNAL | | | External | | | LAB | | + +-------+ + + + + +---------+ + + | Performing | Address | City/State/Zipcode | Phone Number | | Organization | | | | + +---------+ + + | EXTERNAL LAB | | | | + +---------+ + + External Lab: CBC (04/22/2018) + +-------+ + + + | Component | Value | Ref Range | Performed | Pathologist | | | | | At | Signature | + +-------+ + + + | WBC, | 10.2 | 3 - 10.6 | EXTERNAL | | | External | | | LAB | | + +-------+ + + + | HGB, | 14.0 | 11.8 - 17.1 | EXTERNAL | | | External | | | LAB | | + +-------+ + + + | HCT, | 43.0 | 36 - 51 | EXTERNAL | | | External | | | LAB | | + +-------+ + + + | RBC, | 4.63 | 3.86 - 5.7 | EXTERNAL | | | External | | | LAB | | + +-------+ + + + | MCV, | 93 | 81 - 102 | EXTERNAL | | | External | | | LAB | | + +-------+ + + + + +---------+ + + | Performing | Address | City/State/Zipcode | Phone Number | | Organization | | | | + +---------+ + + | EXTERNAL LAB | | | | + +---------+ + + External Lab: eGFR (04/22/2018) + + + + + + | Component | Value | Ref Range | Performed | Pathologist | | | | | At | Signature | + + + + + + | eGFR, | 36.0 (A) | 60 | EXTERNAL | | | External | [...] + +---------+ + + External Lab: Creatinine (04/22/2018) + +---------+ + + + | Component | Value | Ref Range | Performed | Pathologist | | | | | At | Signature | + +---------+ + + + | Creatinine, | 1.9 (A) | 0.8 - 1.5 | EXTERNAL | | | External | [...]
--- OUTSIDE RECORDS SUMMARY | ~2020-03-04 | XMS | Encounter Summary ---
Demographics + + + | Address | [address] | | | [place] [address] | + + + | Home Phone | | + + + | Preferred Language | Unknown | + + + | Marital Status | | + + + | Mandaen Affiliation | Unknown | + + + | Race | Unknown | + + + | Ethnic Group | Unknown | + + + Author + + + | Author | [facility] | | | and [place] | + + + | Organization | [facility] | [...] [place], [place] | | | | | [address] | | + + + + + Care Team Providers + +------+ + | Care Balloon Tester Name | Role | Phone | [...] | +--------+ + + + + | 11/12/ | Implant | [facility] [place] | Randy Figueroa, | Implantable | | 2018 | Monitor | CARDIOLOGY [address] | [address] | defibrillator | | | | [place], | [place], | reprogramming/check | | | | [place] [phone] | [place] [address] | (Primary Dx); SOLAR INSTALLATION MANAGER-D | | | | [phone] | [phone] | (AICD) Medtronic | | | | [...] encounter Procedure Notes Randy Figueroa MD - 11/12/2017 11:59 PM PSTAssociated Order(s): DEVICE INTERROGATION- R EMOTEProcedure(s): DEVICE INTERROGATION- REMOTEPre-Procedure Diagnose(s): Implantable defibr illator reprogramming/check; Biventricular ICD (implantable cardioverter-defibrillator) in p lace; Ischemic cardiomyopathyRefer to [facility] documentation and remote PDF scanned into [employer] for remote interrogation results. Data collected by Kelly Rodriguez RN Presenting rhythm: sinus rhythm, atrial sensed ventricular paced at 89-92 beats. 0 mode switch episodes accounting for 0% of the time. No episodes. No tachycardia therapies recommended or delivered. Biventricular pacing 98.6% PVC singles 0.2/hour PVC runs 0.0/hour Histogram good. Battery longevity 9.9 years. Apparent normal and stable device function. Device interrogation due in office in January 2018. This report occurred within the global period following pacemaker implantation and therefor e is not billable. documented in this encounter Plan of Treatment +--------+ + + + + | Date | Type | Specialty | Care Team | Description | +--------+ + + + + | 03/12/ | Office | Nephrology | Litzy, | | | 2019 | Visit | | ADARSH [address] | | | | | | [address] [facility] | | | | | | [address] [place], [place] | | | | | | [id number] | | | | | | | | +--------+ + + + + | 04/16/ | Office | Cardiology | Alin Anderson | | | 2019 | Visit | | MD Cheryl Arreguin | | | | | | [address] | | | | | | [place] [address] | | | | | | [phone] | | | | | | | [...] [place] | | | | | | [address] | | | | | | | | +--------+ + + + + documented as of this encounter Procedures + +--------+ + + + | Procedure Name | Priori | Date/Time | Associated Diagnosis | Comments | | | ty | | | | + +--------+ + + + | DEVICE | Routin | 11/12/2017 | Implantable | Results for this | | INTERROGATION- | e | 11:59 PM | defibrillator | procedure are in the | | REMOTE | | PST | reprogramming/check | results section. | | | | | SOLAR INSTALLATION MANAGER-D (AICD) | | | | | | Medtronic 10/16/17 | | | | | | EULOGIO Darby | | | | | | Ischemic | | | | | | cardiomyopathy | | + +--------+ + + + documented in this encounter Results Device Interrogation - Remote (11/12/2017 11:59 PM PST) + + + | Narrative | Performed At | + + + | Randy | [facility] | | MD [place] 11/16/2017 17:06Refer to [facility] documentation and | | | remote PDF scanned into [employer] for remote interrogation results. Data | | | collected by Kelly Rodriguez RN Presenting rhythm: sinus rhythm, atrial | | | sensed ventricular paced at 89-92 beats.0 mode switch episodes | | | accounting for 0% of the time.No episodes. No tachycardia therapies | | | recommended or delivered.Biventricular pacing 98.6%PVC singles | | | 0.2/hourPVC runs 0.0/hourHistogram good. Battery longevity | | | 9.9 years.Apparent normal and stable device function.Device | | | interrogation due in office in January 2018.This report occurred within | | | the global period following pacemaker implantation and therefore is | | | not billable. | | |Histogram good. Battery longevity 9.9 years. | | |Apparent normal and stable device function. | | |Device interrogation due in office in January 2018. | | |This report occurred within the global period following pacemaker | | |implantation and therefore is not billable. | | | | | + + [...] implantable cardiac defibrillator | + + | SOLAR INSTALLATION MANAGER-D (GABBI) Medtronic 10/16/17 EULOGIO Darby | + + | Ischemic cardiomyopathy Other specified forms of chronic ischemic heart disease | + + documented in this encounter"
--- OUTSIDE RECORDS SUMMARY | ~2020-03-04 | XMS | Encounter Summary ---
Demographics + + + | Address | [address] | | | [place] [address] | + + + | Home Phone [...] + + | Author | [facility] | | | and [place] | + + + | Organization | [facility] | | | and [place] | + + + | Address | Unknown | + + + | Phone | Unavailable | + + + Support + + + + + | Name | Relationship | Address | Phone | + + + + + | [place] | [address] | [place] | | | | | [address] | | + + + + + Care Team Providers + +------+ + | Care Surfacing Machine Operator Name | Role | Phone | + +------+ + | Amy Olivares MD | PCP | | + +------+ + Encounter Details +--------+ + + + + | Date | Type | Department | Care Team | Description | +--------+ + + + + | 05/05/ | Orders Only | [facility] [place] | Fack[place]all, | Chronic kidney | | 2019 | | NEPHROLOGY [address] | [address]SH [address] | disease, stage III | | | | [address] | [address] | (moderate) (HCC) | | | | [place], [place] | [address] [place], [place] | (Primary Dx); Anemia | | | | [address] | [id number] | in stage 3 chronic | | | | [phone] | | kidney disease (HCC) | +--------+ + + + + [...] documented as of this encounter Progress Notes Eri Carter RN - 05/05/2019 3:37 PM [facility] for nephrology appt on 06/06/19 sent to [facility]. documented in this en counter Plan of [...] [place] | | | | | | [id number] | | | | | | | | +--------+ + + + + | 04/16/ | Office | Cardiology | Alin Anderson | | | 2019 | Visit | | MD [address] | | | | | | [place] | | | | | | [place] [address] | | | | | | [phone] | | | | | | | | +--------+ + + + + | 04/16/ | Procedure | Cardiology | | | | 2019 | visit | | | | +--------+ + + + + | 04/25/ | Office | Cardiology | Rocio Pearl, | | | 2019 | Visit | | MD Cheryl URENA | | | | | | [place], [place] | | | | | | [address] | | | | | | | | +--------+ + + + + documented as of this encounter Visit Diagnoses + + | Diagnosis | + + | Chronic kidney disease, stage III (moderate) (HCC) - Primary Chronic kidney disease, | | Stage III (moderate) | + + | Anemia in stage 3 chronic kidney disease (HCC) | + + documented in this encounter"
--- OUTSIDE RECORDS SUMMARY | ~2020-03-04 | XMS | Encounter Summary ---
Demographics + + + | Address | [address] | | | [place] [address] | + + + | Home Phone | | + + + | Preferred Language | Unknown | + + + | Marital Status | | + + + | Hinduism Affiliation | Unknown | + + + [...] [place], [place] | | | | | [address] | | + + + + + Care Team Providers + +------+ + | Care Nursing Secretary Name | Role | Phone | + +------+ + PCP | Unavailable | + +------+ + Reason for Visit + + + | Reason | Comments | + + + | Hypotension | | + + + Encounter Details +--------+ + + + + | Date | Type | Department | Care Team | Description | +--------+ + + + + | 08/26/ | Emergency | [facility] | Ron Hawkins | Weakness (Primary | | 2018 | | [facility] | Pierre Perry MD | Dx); Adverse | | | | CENTER [address] | [address] | reaction to | | | | [place], [place] | [place] | metoprolol, initial | | | | [address] | [id number] | encounter | | | | [phone] | | | +--------+ + + + [...] + + + | Blood Pressure | 95/53 | 08/26/2018 2:30 PM | | | | | PST | | + + + + + | Pulse | 57 | 08/26/2018 2:30 PM | | | | | PST | | + + + + + | Temperature | 36.4 C (97.5 F) | 08/26/2018 11:17 AM | | | | | PST | | + + + + + | Respiratory Rate | 14 | 08/26/2018 1:15 PM | | | | | PST | | + + + + + | Oxygen Saturation | 95% | 08/26/2018 2:30 PM | | | | | PST | | + + + + + | Inhaled Oxygen | - | - | | | Concentration | | | | + + + + + | Weight | 102.9 kg (226 lb | 08/26/2018 11:17 AM | | | | 13.7 oz) | PST | | + + + + + | Height | 175.3 cm (5' 9") | 08/26/2018 11:17 AM | | | | | PST | | + + + + + | Body Mass Index | 33.5 | 08/26/2018 11:17 AM | | | | | PST | | + + + + + documented in this encounter Discharge Instructions Instructions Ron Hawkins MD - 08/26/2018Please come back on metoprolol to 50 mg twice daily. Return for severe worsening weakness dizziness shortness of breath or ot her worsening symptoms. Please follow-up with your primary care physician. documented in this encounter Medications at Time of Discharge + + + +---------+ + + | Medication | Sig | Dispensed | Refills | Start | End Date | | | | | | Date | | + + + +---------+ + + | acetaminophen | Take 1,000 mg by | | 0 | 10/17/19 | | | (TYLENOL) 500 mg | mouth Daily as | | | 18 | | | tablet | needed. | | | | | + + + +---------+ + + | aspirin 81 MG | Take 81 mg by mouth | | 0 | | | | tablet | Daily. | | | | | + + + +---------+ + + | Cholecalciferol | Take 50,000 Units by | | 0 | | | | (VITAMIN D-3) 46791 | mouth Once a week. | | | | | | units CAPS | | | | | | + + + +---------+ + + | | Take 1 tablet by | | 0 | | | | HYDROcodone-acetamin | mouth as needed. | | | | | | ophen (NORCO) 10-325 | | | | | | | mg per tablet | | | | | | + + + +---------+ + + | nitroglycerin | Place 1 tablet under | 25 | 3 | 05/21/20 | | | (NITROSTAT) 0.4 mg | the tongue every 5 | tablet | | 18 | | | SL tablet | minutes as needed | | | | | | | for Chest pain. | | | | | + + + +---------+ + + | traMADol (ULTRAM) | Take 150 mg by mouth | | 0 | | | | 50 mg tablet | Twice daily as | | | | | | | needed. | | | | | + + + +---------+ + + | acetaminophen | Take 1,000 mg by | | 0 | | | | (TYLENOL) 500 mg | mouth as needed. | | | | 9 | | tablet | | | | | | + + + +---------+ + + | amiodarone | Take 2 tablets by | 60 | 5 | 06/29/20 | | | (PACERONE) 200 mg | mouth Daily. | tablet | | 18 | 9 | | tablet | | | | | | + + + +---------+ + + | aspirin 81 MG | Daily. | | 0 | 01/15/20 | | | tablet | | | | 18 | 9 | + + + +---------+ + + | atorvaSTATin | TAKE ONE TABLET BY | 30 | 5 | 04/28/20 | | | (LIPITOR) 80 MG | MOUTH EVERY DAY IN | tablet | | 18 | 9 | | tablet | THE EVENING | | | | | + + + +---------+ + + | clopidogrel | Take 1 tablet by | 30 | 11 | 08/06/20 | | | (PLAVIX) 75 mg | mouth Daily. | tablet | | 18 | 9 | | tablet | | | | [...] + + + +---------+ + + | ENTRESTO 97-103 MG | Take 2 tablets by | | 0 | 06/15/20 | | | per tablet | mouth 2 times daily. | | | 18 | 9 | + + + +---------+ + + | furosemide (LASIX) | TAKE ONE TABLET BY | 30 | 4 | 06/18/20 | | | 20 mg tablet | MOUTH DAILY | tablet | | 18 | 9 | + + + +---------+ + + | gabapentin | Take 300 mg by mouth | | 0 | | | | (NEURONTIN) 300 mg | 3 times daily. | | | | 9 | | capsule | | | | | | + + + +---------+ + + | ipratropium | ipratropium bromide | | 0 | | | | (ATROVENT) 0.06% | 42 mcg (0.06 %) | | | | 9 | | nasal spray | nasal spray [place] 2 | | | | | | | sprays 3 times a day | | | | | | | by intranasal | | | | | | | route. | | | | | + + + +---------+ + + | Melatonin 10 MG | Take 10 mg by mouth | | 0 | | | | CAPS | as needed. | | | | 9 | + + + +---------+ + + | metFORMIN | Take 500 mg by mouth | | 0 | | | | (GLUCOPHAGE) 500 mg | 2 times daily (with | | | | 9 | | tablet | breakfast & | | | | | | | dinner). | | | | | + + + +---------+ + + | metoprolol | Take 1 tablet by | 180 | 3 | 07/06/20 | | | succinate | mouth Daily. | tablet | | 18 | 9 | | (TOPROL-XL) 50 mg 24 | | | | | | | hr tablet | | | | | | + + + +---------+ + + | pantoprazole | Take 1 tablet by | 30 | 5 | 08/06/20 | | | (PROTONIX) 40 mg | mouth every morning | tablet | | 18 | 9 | | tablet | (before breakfast). | | | | | + + + +---------+ + + | predniSONE | | | 0 | 08/18/20 | | | (DELTASONE) 20 mg | | | | 18 | 9 | | tablet | | | | | | + + + +---------+ + + | raNITIdine | Take 150 mg by mouth | | 0 | 04/28/20 | | | (ZANTAC) 300 MG | nightly. | | | 18 | 0 | | tablet | | | | | | + + + +---------+ + + | spironolactone | Take 1 tablet by | 90 | 3 | 07/15/20 | | | (ALDACTONE) 25 mg | mouth Daily. | tablet | | 18 | 9 | | tablet | | | | | | + + + +---------+ + + documented as of this encounter ED Notes Ron Hawkins MD - 08/26/2018 1:56 PM PSTFormatting of this note might be d ifferent from the original. [facility] Ron Will Emergency Department Encounter Note [address] [place] [id number] PCP:Young Haque DO x2500 eMERGENCY dEPARTMENT eNCOUnter CHIEF COMPLAINT Chief Complaint Patient presents with Hypotension TRIAGE ED Triage Notes, ED Triage Notes Terry Burgess RN 08/26/2018 11:17 Patient sent from cardiac rehab for hypotension, SBP 60-70s. Patient is not hypotensive at this time. Reports feeling a little dizzy and a little more week with blood pressure being low HPI Ron Sims Suman is a 62 y.o. male who presents status post episode of hypotension. Deon bermudez was in cardiac rehab today and noted to have a low blood pressure. Patient has had se veral weeks of being very tired and weak. He's here for further evaluation. Currently wallace ent has a lower blood pressure blood pressures in the 80s systolic. According to family patient [facility] [place] They st arted him on metoprolol up to 100 mg twice daily. Since then he's had significant weakness. Patient had previous extensive PR in the past. According to family he was on ECMO for an. Time after his last PR. He was in a coma for approximately a week and a half and had strok elike symptoms afterwards - with subsequent left-sided leg weakness and arm weakness which i s now resolved. PAST MEDICAL HISTORY Past Medical History: Diagnosis Date Acute anterior wall PR (HCC) 04/03/2017 Angiography and stent 03/15/2017 successful [...] stenosis on 03/15/2017 by Monse Ross MD. Cancer (HCC) CHF (congestive heart failure) (HCC) COPD (chronic obstructive pulmonary disease) (HCC) GERD (gastroesophageal reflux disease) Hyperlipidemia Hypertension LOUISA (obstructive sleep apnea) SURGICAL HISTORY Past Surgical History: Procedure Laterality Date ANGIOGRAM Bilateral 05/19/2018 Procedure: CV Vas LE Angio; Surgeon: Khurram Canas MD; Location: [facility] CV LAB ANGIOPLASTY Left 05/19/2018 Procedure: CV PTCA Only; Surgeon: Khurram Canas MD; Location: [facility] CV LAB CARDIAC CATHERIZATION N/A 10/03/2017 Procedure: CV Cor Angio; Surgeon: Delmer Dai MD; Location: [facility] CV LAB CARDIAC CATHERIZATION N/A 03/15/2017 Procedure: CV Cor Angio; Surgeon: Monse Ross MD; Location: [facility] CV LAB CARDIAC CATHERIZATION Left 05/19/2018 Procedure: CV RHC; Surgeon: Khurram Canas MD; Location: [facility] CV LAB CARDIAC CATHERIZATION Left 05/19/2018 Procedure: CV FFR/iFR; Surgeon: Khurram Canas MD; Location: [facility] CV LAB CARDIAC CATHERIZATION Left 05/19/2018 Procedure: CV IVUS/OCT; Surgeon: Khurram Canas MD; Location: [facility] CV LAB ELBOW SURGERY Left GALLBLADDER SURGERY LEFT VENTRICULAR ASSIST DEVICE Right 05/19/2018 Procedure: CV PERC MECH CIRC SUPPORT; Surgeon: Khurram Canas MD; Location: [facility] CV LAB NASAL SEPTUM SURGERY TONSILLECTOMY UPPER GASTROINTESTINAL ENDOSCOPY N/A 10/05/2017 Procedure: EGD; Surgeon: Terry Weir MD; Location: [facility] MEDICAL PROCEDURE UNIT CURRENT MEDICATIONS Previous Medications ACETAMINOPHEN (TYLENOL) 500 MG TABLET Take 1,000 mg by mouth as needed. AMIODARONE (PACERONE) 200 MG TABLET Take 2 tablets by mouth Daily. ASPIRIN 81 MG TABLET Take 81 mg by mouth Daily. ATORVASTATIN (LIPITOR) 80 MG TABLET TAKE ONE TABLET BY MOUTH EVERY DAY IN THE EVENING CHOLECALCIFEROL (VITAMIN D-3) 90599 UNITS CAPS Take by mouth Once a week. CLOPIDOGREL (PLAVIX) 75 MG TABLET Take 1 tablet by mouth Daily. ENTRESTO 97-103 MG PER TABLET Take 1 tablet by mouth 2 times daily. FUROSEMIDE (LASIX) 20 MG TABLET TAKE ONE TABLET BY MOUTH DAILY GABAPENTIN (NEURONTIN) 300 MG CAPSULE Take 300 mg by mouth 3 times daily. HYDROCODONE-ACETAMINOPHEN (NORCO) 10-325 MG PER TABLET Take 1 tablet by mouth as needed . IPRATROPIUM (ATROVENT) 0.06% NASAL SPRAY ipratropium bromide 42 mcg (0.06 %) nasal spra y [place] 2 sprays 3 times a day by intranasal route. MELATONIN 3 MG TABS Take 5 mg by mouth nightly. METFORMIN (GLUCOPHAGE) 500 MG TABLET Take 500 mg by mouth 2 times daily (with breakfast & dinner). METOPROLOL SUCCINATE (TOPROL-XL) 50 MG 24 HR TABLET Take 1 tablet by mouth Daily. NITROGLYCERIN (NITROSTAT) 0.[address] 1 tablet under the tongue every 5 shai janeth as needed for Chest pain. PANTOPRAZOLE (PROTONIX) 40 MG TABLET Take 1 tablet by mouth every morning (before break fast). RANITIDINE (ZANTAC) 300 MG TABLET Take 1 tablet by mouth nightly. SPIRONOLACTONE (ALDACTONE) 25 MG TABLET Take 1 tablet by mouth Daily. TRAMADOL (ULTRAM) 50 MG TABLET Take 50 mg by mouth every 6 hours as needed. ALLERGIES No Known Allergies FAMILY HISTORY History reviewed. No pertinent family history. SOCIAL HISTORY Social History Social History Marital status: Spouse name: N/A Number of children: N/A Years of education: N/A Social History Main Topics Smoking status: Former Smoker Years: 45.00 Types: Cigarettes Smokeless tobacco: Former User Quit date: 03/15/2017 Alcohol use No Drug use: No Sexual activity: No Other Topics Concern None Social History Narrative Caffeine: 1 1/2 cups of coffee Exercise: walking 20 To 30 min REVIEW OF SYSTEMS Please see HPI, All systems negative except as marked. Twelve point review of system comp leted my me. PHYSICAL EXAM VITAL SIGNS: Temp: 36.4 C (97.5 F) Pulse: 60 Resp: 14 SpO2: 95 % BP: 105/60 Constitutional: Well developed, Well nourished, Non-toxic appearance. Patient appears wea k HENT: Normocephalic, Atraumatic, Bilateral external ears normal, Oropharynx moist, No oral exudates, Nose normal. Neck- Normal range of motion, No tenderness, Supple, No stridor. Eyes: PERRL, EOMI, Conjunctiva normal, No discharge. Respiratory: Normal breath sounds, No respiratory distress, No wheezing, No chest tenderne ss. Cardiovascular: Normal heart rate, Normal rhythm, No murmurs, No rubs, No gallops. GI: Bowel sounds normal, Soft, No tenderness, No masses, No pulsatile masses. Musculoskeletal: Intact distal pulses, No edema, No tenderness, No cyanosis, No clubbing. Good range of motion in all major joints. No tenderness to palpation or major deformities no macho. Neurologic: Alert & oriented x 3, Normal motor function, Normal sensory function, No focal deficits noted, no facial assymetry noted. 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 Rate: 60 [place]: normal Ectopy: none Conduction: P wave normal, normal QRS ST Segments: normal no elevation, depression, or prolongation. T Waves: no acute change RADIOLOGY Ct Head Wo Contrast Result Date: 08/26/2018 [...] Childs MD Electronically signed: 08/26/2018 1:50 PM LAB Labs Reviewed CBC WITH DIFFERENTIAL - Abnormal; Notable for the following: Result Value Hgb 12.8 (*) MCHC 31.4 (*) RDW-CV 15.9 (*) RDW-SD 53.9 (*) % Lymphocytes 15.4 (*) % Immature granulocytes 0.8 (*) Absolute Imm. Granulocytes 0.07 (*) All other components within normal limits COMPREHENSIVE METABOLIC PANEL - Abnormal; Notable for the following: Glucose 127 (*) BUN 37 (*) Creatinine 2.01 (*) eGFR if not 34 (*) All other components within normal limits URINALYSIS WITH MICROSCOPIC - Abnormal; Notable for the following: MUCUS UA Present (*) All other components within normal limits POC BLOOD GASES - Abnormal; Notable for the following: O2 Sat, POC 81 (*) PCO2, POC 47.7 (*) PO2, POC 49.0 (*) All other components within normal limits LIPASE - Normal D-DIMER - Normal LACTIC ACID - Normal PROTIME INR - Normal PROCALCITONIN EXTRA GREEN TOP TUBE EXTRA LAVENDER TOP TUBE EXTRA GOLD TOP TUBE ED COURSE & MEDICAL DECISION MAKING Pertinent Labs & Imaging studies reviewed. (See chart for details) Nursing notes reviewed. Patient has slightly elevated creatinine. Other than that his labs are essentially unremar kable. Patient is currently stable he does have some ongoing borderline hypotension. Where resolving this with IV fluids. I'm directing him to cut back his metoprolol. For the next week. At this point patient is otherwise stable he does not appear to be in acute distress. Discharge Instructions Please come back on metoprolol to 50 mg twice daily. Return for severe worsening weakness dizziness shortness of breath or other worsening symptoms. Please follow-up with your prima care physician. FINAL IMPRESSION 1. Weakness Acute 2. Adverse reaction to metoprolol, initial encounter Acute Portions of this chart may have been created with t3n [employer] voice recognition software. Occasi onal wrong-word or sound-alike substitutions may have occurred due to the inherent canseco itations of voice recognition software. Please read the chart carefully and recognize, using context, where these substitutions have occurred Ron Hawkins MD 08/26/18 1441 Terry Keith RN - 08/26/2018 11:16 AM PSTPatient sent from cardiac rehab for hypotension, SBP 60 -70s. Patient is not hypotensive at this time. Reports feeling a little dizzy and a little more week with blood pressure being lowElectronically signed by Terry Burgess RN at 08/08 11:17 AM PSTdocumented in this encounter Plan of [...] | | | | | [address] | | | | | | [address] | | | | | | | | +--------+ + + + + | 04/16/ | Office | Cardiology | Alin Anderson | | | 2019 | Visit | | MD Cheryl Arreguin | | | | | | [address] | | | | | | [place] [address] | | | | | | [phone] | | | | | | | [...] [place] | | | | | | [address] | | | | | | | | +--------+ + + + + + +------+--------+ + + | Name | Type | Priori | Associated Diagnoses | Date/Time | | | | ty | | | + +------+--------+ + + | ED INFORMATION | BLAIR | Routin | | 08/26/2018 11:03 AM | | EXCHANGE | | e | | PST | + +------+--------+ + + documented as of this encounter Procedures + +--------+ + + + | Procedure Name | Priori | Date/Time | Associated Diagnosis | Comments | | | ty | | | | + +--------+ + + + | CT HEAD WO CONTRAST | STAT | 08/26/2018 | | Results for this | | | | 1:37 PM | | procedure are in the | | | | PST | | results section. | + +--------+ + + + | XR CHEST AP PORTABLE | STAT | 08/26/2018 | | Results for this | | | | 1:27 PM | | procedure are in the | | | | PST | | results section. | + +--------+ + + + | URINALYSIS WITH | STAT | 08/26/2018 | | Results for this | | MICROSCOPIC | | 11:55 AM | | procedure are in the | | | | PST | | results section. | + +--------+ + + + | POC BLOOD GASES | Routin | 08/26/2018 | | Results for this | | | e | 11:53 AM | | procedure are in the | | | | PST | | results section. | + +--------+ + + + | ECG 12 LEAD | STAT | 08/26/2018 | | Results for this | | | | 11:35 AM | | procedure are in the | | | | PST | | results section. | + +--------+ + + + | PROCALCITONIN, SERUM | STAT | 08/26/2018 | | Results for this | | | | 11:33 AM | | procedure are in the | | | | PST | | results section. | + +--------+ + + + | EXTRA LAVENDER TOP | Routin | 08/26/2018 | | Results for this | | TUBE | e | 11:33 AM | | procedure are in the | | | | PST | | results section. | + +--------+ + + + | EXTRA GREEN TOP TUBE | Routin | 08/26/2018 | | Results for this | | | e | 11:33 AM | | procedure are in the | | | | PST | | results section. | + +--------+ + + + | EXTRA GOLD TOP TUBE | Routin | 08/26/2018 | | Results for this | | | e | 11:33 AM | | procedure are in the | | | | PST | | results section. | + +--------+ + + + | PROTIME INR | STAT | 08/26/2018 | | Results for this | | | | 11:33 AM | | procedure are in the | | | | PST | | results section. | + +--------+ + + + | D-DIMER | STAT | 08/26/2018 | | Results for this | | | | 11:33 AM | | procedure are in the | | | | PST | | results section. | + +--------+ + + + | CBC WITH | STAT | 08/26/2018 | | Results for this | | DIFFERENTIAL | | 11:33 AM | | procedure are in the | | | | PST | | results section. | + +--------+ + + + | LIPASE | STAT | 08/26/2018 | | Results for this | | | | 11:33 AM | | procedure are in the | | | | PST | | results section. | + +--------+ + + + | LACTIC ACID | STAT | 08/26/2018 | | Results for this | | | | 11:33 AM | | procedure are in the | | | | PST | | results section. | + +--------+ + + + | COMPREHENSIVE | STAT | 08/26/2018 | | Results for this | | METABOLIC PANEL | | 11:33 AM | | procedure are in the | | | | PST | | results section. | + +--------+ + + + | OXYGEN THERAPY | Routin | 08/26/2018 | | | | | e | 11:23 AM | | | | | | PST | | | + +--------+ + + + | ED INFORMATION | Routin | 08/26/2018 | | | | EXCHANGE | e | 11:03 AM | | | | | | PST | | | + +--------+ + + + +---+--------+ | | | | | Proced | | | ure | | | Note - | | | Adolfo, | | | Lab In | | | | | | Hlseve | | | n - | | | | | | 2017 | | | 11:04 | | | AM PST | | | | | | Format | | | ting | | | of | | | this | | | note | | | might | | | be | | | differ | | | ent | | | from | | | the | | | origin | | | al.ADOLFO | | | E?NOTI | | | FICATI | | | ON?/ | | | | | | 8 | | | 11:00? | | | MCROBE | | | RTS, | | | RON | | | | | | J?MRN: | | | | | | [id number] | | | [id number] | | | his | | | patien | | | t has | | | regist | | | ered | | | at the | | | | | | Provid | | | ence | | | [facility] | | | Center | | | | | | Emerge | | | ncy | | | Depart | | | ment | | | For | | | more | | | inform | | | ation | | | visit: | | | | | | https: | | | //secu | | | [email or web address] | | | ecarep | | | [email or web address] | | | m/wallace | | | ent/4c | | | [id number] | | | -[id number] | | | [id number] | | | [email or web address] | | | [id number] | | | [id number] | | | Securi | | | ty | | | Events | | | No | | | recent | | | | | | Securi | | | ty | | | Events | | | | | | curren | | | tly on | | | | | | fileED | | | Care | | | Guidel | | | inesTh | | | ere | | | are | | | curren | | | tly no | | | ED | | | Care | | | Guidel | | | nahid | | | in | | | BLAIR | | | for | | | this | | | patien | | | t. | | | Please | | | check | | | your | | | facili | | | ty's | | | medica | | | l | | | record | | | s | | | system | | | .Recen | | | t | | | Emerge | | | ncy | | | Depart | | | ment | | | Visit | | | Summar | | | yAdmit | | | Date | | | Facili | | | ty | | | City | | | State | | | Type | | | Major | | | Type | | | Diagno | | | ses or | | | Chief | | | | | | Compla | | | int | | | Dec | | | 20, | | | 2018 | | | Provid | | | ence | | | [facility] [place] | | | [place] | | | Emerge | | | ncy | | | Emerge | | | ncy | | | low | | | bp | | | Dec | | | 12, | | | 2018 | | | [facility] | [place] | | | [facility] | | | [place] | | | [place] | | | Emerge | | | ncy | | | Emerge | | | ncy | | | | | | Disord | | | er of | | | kidney | | | and | | | ureter | | | , | | | unspec | | | ified | | | | | | Heart | | | failur | | | e, | | | unspec | | | ified | | | | | | Shortn | | | ess of | | | | | | breath | | | | | | Chroni | | | c | | | obstru | | | ctive | | | pulmon | | | maciej | | | diseas | | | e with | | | | | | (acute | | | ) | | | exacer | | | bation | | | | | | Hypert | | | ensive | | | heart | | | | | | diseas | | | e with | | | heart | | | | | | failur | | | e | | | Person | | | al | | | histor | | | y of | | | nicoti | | | ne | | | depend | | | ence | | | | | | Other | | | long | | | term | | | (curre | | | nt) | | | drug | | | therap | | | y | | | Old | | | myocar | | | dial | | | infarc | | | tion | | | Pure | | | | | | hyperc | | | holest | | | erolem | | | ia, | | | unspec | | | ified | | | Dec | | | 3, | | | 2018 | | | [facility] | [place] | | | [facility] | | | [place] | | | [place] | | | Emerge | | | ncy | | | Emerge | | | ncy | | | Pain | | | in | | | left | | | hip | | | | | | Sciati | | | ca, | | | left | | | side | | | Pure | | | | | | hyperc | | | holest | | | erolem | | | ia, | | | unspec | | | ified | | | | | | Essent | | | ial | | | (prima | | | ry) | | | hypert | | | ension | | | | | | Other | | | long | | | term | | | (curre | | | nt) | | | drug | | | therap | | | y | | | Old | | | myocar | | | dial | | | infarc | | | tion | | | Oct | | | 20, | | | 2018 | | | [facility] | [place] | | | [facility] | | | [place] | | | [place] | | | Emerge | | | ncy | | | Emerge | | | ncy | | | Heart | | | | | | failur | | | e, | | | unspec | | | ified | | | | | | Shortn | | | ess of | | | | | | breath | | | | | | Hypert | | | ensive | | | heart | | | | | | diseas | | | e with | | | heart | | | | | | failur | | | e | | | Chroni | | | c | | | obstru | | | ctive | | | pulmon | | | maciej | | | diseas | | | e with | | | | | | (acute | | | ) | | | exacer | | | bation | | | | | | Other | | | long | | | term | | | (curre | | | nt) | | | drug | | | therap | | | y Oct | | | 11, | | | 2018 | | | [facility] | [place] | | | [facility] | | | [place] | | | [place] | | | Emerge | | | ncy | | | Emerge | | | ncy | | | Other | | | long | | | term | | | (curre | | | nt) | | | drug | | | therap | | | y | | | Dyspne | | | a, | | | unspec | | | ified | | | | | | Essent | | | ial | | | (prima | | | ry) | | | hypert | | | ension | | | | | | Presen | | | ce of | | | ordaz | | | ry | | | angiop | | | lasty | | | implan | | | t and | | | graft | | | | | | Long | | | term | | | (curre | | | nt) | | | use of | | | | | | aspiri | | | n | | | Person | | | al | | | histor | | | y of | | | nicoti | | | ne | | | depend | | | ence | | | | | | Shortn | | | ess of | | | | | | breath | | | E.D. | | | Visit | | | Count | | | (12 | | | mo.)Fa | | | cility | | | | | | Visits | | | Low | | | [facility] | | | | | | [facility] | | | | | | Region | | | al | | | Medica | | | l | | | Center | | | 1 0 | | | Provid | | | ence | | | St[facility] | | | [facility] | Med[facility] | | | l | | | Center | | | 1 0 | | | [facility] | [place] | | | y | | | Hospit | | | al 12 | | | 0 | | | Total | | | 14 0 | | | Note: | | | Visits | | | | | | indica | | | te | | | total | | | known | | | visits | | | . | | | Medica | | | id Low | | | | | | Acuity | | | Dx | | | are | | | the | | | number | | | of | | | primar | | | y | | | diagno | | | ses on | | | the | | | Medica | | | id's | | | Low | | | Acuity | | | dx | | | list. | | | | | | Recent | | | | | | Inpati | | | ent | | | Visit | | | [facility] | | | yNo | | | record | | | ed | | | inpati | | | ent | | | visits | | | . | | | Prescr | | | iption | | | Drug | | | Report | | | (12 | | | Mo.)Rx | | | | | | Detail | | | sFill | | | Date | | | Drug | | | Descri | | | ption | | | Qty. | | | Prescr | | | iber | | | CS MED | | | | | | 2018 | | | 2-11 | | | HYDROC | | | ODONE- | | | ACETAM | | | IN | | | 10-325 | | | MG 84 | | | | | | [place] | | | H | | | BRADEN | | | 2 30 | | | 2017-09 | | | 1-13 | | | HYDROC | | | ODONE- | | | [facility] | | | [place] | | | 10-325 | | | MG 84 | | | | | | [place] | | | H | | | BRADEN | | | 2 30 | | | 2017-09 | | | 0-16 | | | HYDROC | | | ODONE- | | | [facility] | | | [place] | | | 10-325 | | | MG 84 | | | | | | [place] | | | H | | | BRADEN | | | 2 30 | | | 2017-09 | | | 0-01 | | | TRAMAD | | | OL HCL | | | 50 MG | | | | | | TABLET | | | 168 | | | [place] | | | H | | | BRADEN | | | 4 0 | | | 2018-0 | | | 9-18 | | | HYDROC | | | ODONE- | | | [facility] | | | [place] | | | 10-325 | | | MG 84 | | | | | | [place] | | | H | | | BRADEN | | | 2 30 | | | 2018-0 | | | 9-14 | | | HYDROC | | | ODONE- | | | [facility] | | | IN | | | 5-325 | | | MG 20 | | | KATHRI | | | NE | | | ANI | | | 2 50 | | | 2018-0 | | | 9-04 | | | TRAMAD | | | OL HCL | | | 50 MG | | | | | | TABLET | | | 168 | | | [place] | | | H | | | BRADEN | | | 4 0 | | | 2018-0 | | | 8-21 | | | HYDROC | | | ODONE- | | | [facility] | | | IN | | | 10-325 | | | MG 84 | | | | | | [place] | | | H | | | BRADEN | | | 2 30 | | | 2018-0 | | | 8-06 | | | TRAMAD | | | OL HCL | | | 50 MG | | | | | | TABLET | | | 168 | | | [place] | | | H | | | BRADEN | | | 4 0 | | | 2018-0 | | | 7-24 | | | HYDROC | | | ODONE- | | | [facility] | | | IN | | | 10-325 | | | MG 84 | | | | | | [place] | | | H | | | BRADEN | | | 2 30 | | | 2018-0 | | | 7-18 | | | TRAMAD | | | OL HCL | | | 50 MG | | | | | | TABLET | | | 168 | | | [place] | | | H | | | BRADEN | | | 4 0 | | | 2018-0 | | | 6-26 | | | HYDROC | | | ODONE- | | | [facility] | | | IN | | | 10-325 | | | MG 84 | | | | | | [place] | | | H | | | BRADEN | | | 2 30 | | | 2018-0 | | | 6-05 | | | TRAMAD | | | OL HCL | | | 50 MG | | | | | | TABLET | | | 168 | | | [place] | | | H | | | BRADEN | | | 4 0 | | | 2018-0 | | | 5-29 | | | HYDROC | | | ODONE- | | | [facility] | | | IN | | | 10-325 | | | MG 84 | | | | | | [place] | | | H | | | BRADEN | | | 2 30 | | | 2018-0 | | | 5-01 | | | HYDROC | | | ODONE- | | | [facility] | | | IN | | | 10-325 | | | MG 84 | | | | | | BELLO | | | O | | | FERRAN | | | CO 2 | | | 30 | | | 2018-0 | | | 4-03 | | | HYDROC | | | ODONE- | | | [facility] | | | [place] | | | [address] | | | MG 84 | | | | | | [place] | | | H | | | BRADEN | | | 2 30 | | | 2018-0 | | | 3-06 | | | HYDROC | | | ODONE- | | | [facility] | | | IN | | | 10-325 | | | MG 84 | | | | | | [place] | | | H | | | BRADEN | | | 2 30 | | | 2018- | | | 2-06 | | | HYDROC | | | ODONE- | | | [facility] | | | IN | | | 10-325 | | | MG 84 | | | | | | [place] | | | H | | | BRADEN | | | 2 30 | | | 2018- | | | 1-22 | | | TRAMAD | | | OL HCL | | | 50 MG | | | | | | TABLET | | | 168 | | | [place] | | | H | | | BRADEN | | | 4 0 | | | 2018 | | | 1-09 | | | HYDROC | | | ODONE- | | | [facility] | | | [place] | | | [address] | | | MG 84 | | | | | | [place] | | | H | | | BRADEN | | | 2 30 | | | Rx | | | Summar | | | yMetri | | | c | | | Count | | | CS | | | II-V | | | Rx 20 | | | CS-II | | | Rx 14 | | | Quanti | | | ty | | | Dispen | | | sed | | | 2,120 | | | Unique | | | | | | Prescr | | | ibers | | | 3 | | | Unique | | | | | | Pharma | | | cies 2 | | | | | | Benzos | | | 0 | | | Opioid | | | s 14 | | | Long | | | Acting | | | | | | Opioid | | | s 0 | | | Care | | | Provid | | | ersPro | | | vider | | | PRC | | | Type | | | Phone | | | Fax | | | Servic | | | e | | | Dates | | | WALKER | | | , YOUNG | | | R, | | | D.O. | | | Family | | | | | | Medici | | | ne: | | | Sports | | | | | | Medici | | | ne | | | Oct | | | 16, | | | 2018 - | | | | | | Curren | | | t | | | WALKER | | | , YOUNG | | | R | | | Primar | | | y Care | | | ([phone]) | | | | | | [phone] | | | 84 | | | ([phone]) | | | [phone] | | | 87 Feb | | | 15, | | | 2016 - | | | | | | Curren | | | t | | | Care | | | Histor | | | yMedic | | | al/Jose Angel | | | [email or web address] | | | /2/18 | | | 12:00 | | | AM | | | [facility] [place] [facility] | | [facility] | | | al | | | Patien | | | t is | | | curren | | | tly | | | utiliz | | | ing | | | PCP Dr | | | Braden | | | and | | | has | | | been | | | referr | | | ed to | | | a | | | cardio | | | logist | | | . All | | | | | | chroni | | | c | | | condit | | | ions | | | please | | | refer | | | to | | | PCP.Ca | | | re | | | Recomm | | | endati | | | on:Thi | | | s | | | patien | | | t has | | | had 5 | | | or | | | more | | | Emerge | | | ncy | | | Depart | | | ment | | | visits | | | in | | | the | | | last | | | 12 | | | months | | | .? | | | Patien | | | t | | | requir | | | es | | | educat | | | ion on | | | the | | | scope | | | and | | | purpos | | | e of | | | the ED | | | as an | | | acute | | | care | | | provid | | | er not | | | a | | | Primar | | | y Care | | | | | | Provid | | | er and | | | | | | should | | | not | | | be | | | utiliz | | | ed for | | | | | | chroni | | | c | | | condit | | | ions.? | | | If | | | patien | | | t | | | return | | | s to | | | ED | | | please | | | | | | contac | | | t | | | Commun | | | ity | | | Health | | | | | | Worker | | | , | | | Lamar | | | at | | | [phone] | | .These | | | are | | | guidel | | | nahid | | | and | | | the | | | provid | | | er | | | should | | | | | | exerci | | | se | | | clinic | | | al | | | judgme | | | nt | | | when | | | provid | | | ing | | | care.C | | | riteri | | | a met | | | | | | PDMPKn | | | own | | | Aliase | | | sNo | | | known | | | aliase | | | s. The | | | above | | | | | | inform | | | ation | | | is | | | provid | | | ed for | | | the | | | sole | | | purpos | | | e of | | | patien | | | t | | | treatm | | | ent. | | | Use of | | | this | | | inform | | | ation | | | beyond | | | the | | | terms | | | of | | | Data | | | Sharin | | | g | | | Memora | | | ndum | | | of | | | Unders | | | tandin | | | g and | | | Licens | | | e | | | Agreem | | | ent is | | | | | | prohib | | | ited. | | | In | | | certai | | | n | | | cases | | | not | | | all | | | visits | | | may | | | be | | | repres | | | ented. | | | | | | Consul | | | t the | | | aforem | | | ention | | | ed | | | facili | | | ties | | | for | | | additi | | | onal | | | inform | | | ation. | | | ? | | | 2018 | | | Colle[employer] | | | tive | | | Medica | | | l | | | [employer] | | | logies | | | , [employer] | | | - | | | [place] | | | [place] | | | [place], | | | [place] - | | | [email or web address] | | | ollect | | | ivemed | | | icalte | | | [email or web address] | | | | +---+--------+ documented in this encounter Results CT Head wo Contrast (08/26/2018 1:37 PM PST) + + | Specimen | + + | | + + + + + | Narrative | Performed At | + + + | EXAM: CT HEAD WO CONTRAST dated 08/26/2018 1:33 PM HISTORY: | [facility] | | weakness Comparison: None. TECHNIQUE: Noncontrast CT is | | | performed from the top of calvarium through the skull base. Coronal | | | and sagittal reformats are performed. DOSE: DLP 613.27 mGy-cm | | | FINDINGS: BRAIN: There is mild cerebral atrophy. There is | | | appropriate associated prominence of the ventricles. No areas of | | | increased attenuation to suggest intracranial hemorrhage. There is | | | no mass, mass effect, or midline shift. There are no abnormal | | | extra-axial fluid or air collections. There is preservation of the | | | york-white differentiation at this time. There are mild scattered | | | regions of periventricular and subcortical white matter low density. | | | Encephalomalacia in the posterior right cerebral hemisphere involving | | | the parietal lobe. SCALP/ CALVARIUM: The scalp and skull are | | | intact and are unremarkable. SINUSES / ORBITS/ MASTOIDS: The | | | visible mastoid air cells and paranasal sinuses are clear. The | | | globes and retroconal contents are intact and are unremarkable. | | | IMPRESSION - No CT evidence for an acute intracranial process. 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 The Mild white matter disease which likely | | | represents chronic microvascular ischemic change. Dictated | | | and Signed by: Terry Swift MD Electronically signed: | | | 08/26/2018 2:20 PM | | + + + + + | Procedure Note | + + | Adolfo, Rad Results In - 08/26/2018 2:23 PM PST EXAM: CT HEAD WO CONTRAST dated | | 08/26/2018 1:33 PMHISTORY: weaknessComparison: None.TECHNIQUE: Noncontrast CT is | | performed from the top of calvarium through theskull base. Coronal and sagittal | | reformats are performed.DOSE: DLP 613.27 mGy-cmFINDINGS: BRAIN: There is mild cerebral | | atrophy. There is appropriate associatedprominence of the ventricles. No areas of | | increased attenuation to suggestintracranial hemorrhage. There is no mass, mass effect, | | or midline shift. There are no abnormal extra-axial fluid or air collections. There | | ispreservation of the york-white differentiation at this time. There are mildscattered | | regions of periventricular and subcortical white matter low density. Encephalomalacia in | | the posterior right cerebral hemisphere involving theparietal lobe.SCALP/ CALVARIUM: | | The scalp and skull are intact and are unremarkable.SINUSES / ORBITS/ MASTOIDS: The | | visible mastoid air cells and paranasal sinusesare clear. The globes and retroconal | | contents are intact and are unremarkable.IMPRESSION -No CT evidence for an acute | | intracranial process.Encephalomalacia in the right parietal lobe is likely from a remote | | ischemicevent. TheMild white matter disease which likely represents chronic | | microvascular ischemicchange.Dictated and Signed by: Terry Swift MD Electronically | | signed: 08/26/2018 2:20 PM | |preservation of the york-white differentiation at this time. There are mild | |scattered regions of periventricular and subcortical white matter low density. | |Encephalomalacia in the posterior right cerebral hemisphere involving the | |parietal lobe. | | | |SCALP/ CALVARIUM: The scalp and skull are intact and are unremarkable. | | | |SINUSES / ORBITS/ MASTOIDS: The visible mastoid air cells and paranasal sinuses | |are clear. The globes and retroconal contents are intact and are unremarkable. | | | |IMPRESSION - | | | |No CT evidence for an acute intracranial process. | | | |Encephalomalacia in the right parietal lobe is likely from a remote ischemic | |event. The | | | |Mild white matter disease which likely represents chronic microvascular ischemic | |change. | | | | | | | |Dictated and Signed by: Terry Swift MD | | Electronically signed: 08/26/2018 2:20 PM | + + + +---------+ + + | Performing | Address | City/State/Zipcode | Phone Number | | Organization | | | | + +---------+ + + | [facility] | | | | + +---------+ + + XR Chest AP Portable (08/26/2018 1:27 PM PST) + + | Specimen | + + | | + + + + + | Narrative | Performed At | + + + | XR CHEST AP PORTABLE 08/26/2018 1:27 PM HISTORY: HYPOTENSION. | [facility] | | COMPARISON: 10/07/2017 Findings: Interval resolved | | | bronchovascular/interstitial thickening. Minimal left basilar | | | scarring. Heart is normal in size. Cardiac pacer leads have been | | | placed no evidence of pneumothorax or pleural effusion. Aorta is | | | normal. No acute osseous abnormality. IMPRESSION - No acute | | | intrathoracic abnormality identified. Dictated and Signed by: Kyle | | | MD Naz Electronically signed: 08/26/2018 1:50 PM | | + + + + + | Procedure Note | + + | Adolfo, Rad Results In - 08/26/2018 1:53 PM PST XR CHEST AP PORTABLE 08/26/2018 1:27 PM | | | | HISTORY: HYPOTENSION. | | | | COMPARISON: 10/07/2017 | | | | Findings: Interval resolved bronchovascular/interstitial thickening. Minimal | | left basilar scarring. Heart is normal in size. Cardiac pacer leads have been | | placed no evidence of pneumothorax or pleural effusion. Aorta is normal. No | | acute osseous abnormality. | | | | IMPRESSION - | | No acute intrathoracic abnormality identified. | | | | Dictated and Signed by: Kyle Childs MD | | Electronically signed: 08/26/2018 1:50 PM | + + + +---------+ + + | Performing | Address | City/State/Zipcode | Phone Number | | Organization | | | | + +---------+ + + | [facility] | | | | + +---------+ + + Urinalysis With Microscopic (08/26/2018 11:55 AM PST) + + + + + + | Component | Value | Ref Range | Performed | Pathologist | | | | | At | Signature | + + + + + + | Color, | Yellow | Light Yellow, | [facility] | | | Urine | | Yellow, Straw | [facility] | | | | | [facility] | | | | | | C[facility] - | | | | | | LABORATORY | | + + + + + + | Clarity | Clear | Clear | [facility] | | | | | | [facility] | | | [facility] | [facility] | | | | | | CENTER - | | | | | | LABORATORY | | + + + + + + | pH, Urine | 5.0 | 5.0 - 8.0 | [facility] | | | | | | [facility] | | | | | | [facility] | | | | | | CENTER - | | | | | | LABORATORY | | + + + + + + | Specific | 1.015 | 1.001 - 1.030 | [facility] | | | [place], | | | [facility] | | | Urine | | | MEDICAL | | | | | | CENTER - | | | | | | LABORATORY | | + + + + + + | Protein, | Negative | Negative | [facility] | | | Urine | | | [facility] | | | | | | MEDICAL | | | | | | CENTER - | | | | | | LABORATORY | | + + + + + + | Blood, | Negative | Negative | [facility] | | | Urine | | | [facility] | | | | | | MEDICAL | | | | | | CENTER - | | | | | | LABORATORY | | + + + + + + | Glucose, | Negative | Negative | [facility] | | | Urine | | | [facility] | | | | | | [facility]ICAL | | | | | | CENTER - | | | | | | LABORATORY | | + + + + + + | Ketones, | Negative | Negative | [facility] | | | Urine | | | [facility] | | | | | | [facility]ICAL | | | | | | CENTER - | | | | | | LABORATORY | | + + + + + + | Bilirubin, | Negative | Negative | [facility] | | | Urine | | | [facility] | | | | | | MEDICAL | | | | | | CENTER - | | | | | | LABORATORY | | + + + + + + | Nitrite, | Negative | Negative | [facility] | | | Urine | | | [facility] | | | | | | MEDICAL | | | | | | CENTER - | | | | | | LABORATORY | | + + + + + + | Leukocyte | Negative | Negative | [facility] | | | Esterase, | | | [facility] | | | Urine | | | MEDICAL | | | | | | CENTER - | | | | | | LABORATORY | | + + + + + + | Urobilinoge | Negative | 0.2 mg/dL, 1.0 | [facility] | | | n, Urine | | mg/dL, Negative | [facility] | | | | | | MEDICAL | | | | | | CENTER - | | | | | | LABORATORY | | + + + + + + | White Blood | 0-2 | 0 - 2 /HPF | [facility] | | | Cells, | | | [facility] | | | Urine | | | MEDICAL | | | | | | CENTER - | | | | | | LABORATORY | | + + + + + + | Red Blood | 0-2 | 0 - 2 /HPF | [facility] | | | Cells, | | | [facility] | | | Urine | | | MEDICAL | | | | | | CENTER - | | | | | | LABORATORY | | + + + + + + | Squamous | 0-2 | 0 - 2 /LPF | [facility] | | | Epithelial | | | [facility] | | | Cells, | | | MEDICAL | | | Urine | | | CENTER - | | | | | | LABORATORY | | + + + + + + | Bacteria, | Negative | Negative /HPF | [facility] | | | Urine | | | [facility] | | | | | | MEDICAL | | | | | | CENTER - | | | | | | LABORATORY | | + + + + + + | Mucus, | Present (A) | Negative /LPF | [facility] | | | Urine | | | [facility] | | | | | | MEDICAL [...] [address] | [place] | [phone] | | [facility] | | [address] | | | - LABORATORY | | | | + + + + + POC Blood Gases (08/26/2018 11:53 AM PST) + + + + + + | Component | Value | Ref Range | Performed | Pathologist | | | | | At | Signature | + + + + + + | Specimen | Vein | | [facility] | | | Source | | | [facility] | | | | | | [facility] | | | | | | CENTER - | | | | | | LABORATORY | | + + + + + + | pH, POC | 7.340 | 7.3 - 7.45 | [facility] | | | | | | [facility] | | | | | | [facility] | | | | | | CENTER - | | | | | | LABORATORY | | + + + + + + | HCO3, POC | 25.7 | 21.0 - 28.0 | [facility] | | | | | mmol/L | [facility] | | | | | | MEDICAL | | | | | | CENTER - | | | | | | LABORATORY | | + + + + + + | TCO2, POC | 27.2 | 22.0 - 29.0 | [facility] | | | | | mmol/L | [facility] | | | | | | MEDICAL | | | | | | CENTER - | | | | | | LABORATORY | | + + + + + + | Base | -0.5 | -2.0 - 3.0 | [facility] | | | Excess, POC | | mmol/L | [facility] | | | | | | MEDICAL | | | | | | CENTER - | | | | | | LABORATORY | | + + + + + + | Base | 0.0 | -2.0 - 3.0 | [facility] | | | Excess, | | mmol/L | [facility] | | | Extracellul | | | MEDICAL | | | ar fluid, | | | CENTER - | | | POC | | | LABORATORY | | + + + + + + | O2 Sat, POC | 81 (L) | 90 - 100 % | [facility] | | | | | | [facility] | | | | | | MEDICAL | | | | | | CENTER - | | | | | | LABORATORY | | + + + + + + | PCO2, POC | 47.7 (H) | 35 - 45 mmHg | [facility] | | | | | | [facility] | | | | | | MEDICAL | | | | | | CENTER - | | | | | | LABORATORY | | + + + + + + | pO2, POC | 49.0 (L) | 60 - 750.0 mmHg | [facility] | | | | | | [facility] [...] [address] | [place] | [phone] | | [facility] | | [address] | | | - LABORATORY | | | | + + + + + ECG 12 lead (08/26/2018 11:35 AM PST) + + + + + + | Component | Value | Ref Range | Performed | Pathologist | | | | | At | Signature | + + + + + + | VENTRICULAR | 60 | BPM | [facility] | | | RATE EKG | | | | | + + + + + + | ATRIAL RATE | 60 | BPM | [facility] | | + + + + + + | P-R | 176 | ms | [facility] | | | INTERVAL | | | | | + + + + + + | QRS | 174 | ms | [facility] | | | DURATION | | | | | + + + + + + | Q-T | 502 | ms | [facility] | | | INTERVAL | | | | | + + + + + + | Q-T | 502 | ms | [facility] | | | INTERVAL | | | | | | (CORRECTED) | | | | | + + + + + + | P WAVE AXIS | 58 | degrees | [facility] | | + + + + + + | QRS AXIS | 144 | degrees | [facility] | | + + + + + + | T AXIS | 56 | degrees | [facility] | | + + + + + + | INTERPRETAT | Atrial-sensed | | [facility] | | | ION TEXT | ventricular-paced | | | | | | rhythmAbnormal ECGWhen | | | | | | compared with ECG of | | | | | | 13-JAN-2018 07:54,Vent. | | | | | | rate has decreased BY | | | | | | 6 BPMConfirmed by | | | | | | FLORY العلي MD ([id number]) | | | | | | on 08/27/2018 6:38:04 AM | | | | | | [...] | | + +---------+ + + Extra Gold Top Tube (08/26/2018 11:33 AM PST) + +-------+ + + + | Component | Value | Ref Range | Performed | Pathologist | | | | | At | Signature | + +-------+ + + + | Extra Gold | Done | | [facility] | | | Top Tube | | | [facility] | | | | | | [facility] [...] [address] | [place] | [phone] | | [facility] | | [address] | | | - LABORATORY | | | | + + + + + Extra Lavender Top Tube (08/26/2018 11:33 AM PST) + +-------+ + + + | Component | Value | Ref Range | Performed | Pathologist | | | | | At | Signature | + +-------+ + + + | Extra | Done | | [facility] | | | Lavender | | | [facility] | | | Top Tube | | [...] [address] | [place] | [phone] | | [facility] | | [address] | | | - LABORATORY | | | | + + + + + Extra Green Top Tube (08/26/2018 11:33 AM PST) + +-------+ + + + | Component | Value | Ref Range | Performed | Pathologist | | | | | At | Signature | + +-------+ + + + | Extra Green | Done | | [facility] | | | Top Tube | | | [facility] | | [...] [address] | [place] | [phone] | | [facility] | | [address] | | | - LABORATORY | | | | + + + + + Procalcitonin (08/26/2018 11:33 AM PST) + + + + + + | Component | Value | Ref Range | Performed | Pathologist | | | | | At | Signature | + + + + + + | Procalciton | <0.05 | <=0.50 ng/mL | [facility] | | | in | | | [facility] | | | | | | MEDICAL | | | | | | CENTER - | | | | | | LABORATORY | | + + + + + + | Comment | Comment: < 0.50 | | [facility] | | | | ng/mL:Procalcitonin | | [facility] | | | | levels below 0.50 [...] [address] | [address] | [place] | [phone] | | [facility] | | [address] | | | - LABORATORY | | | | + + + + + Protime INR (08/26/2018 11:33 AM PST) + + + + + + | Component | Value | Ref Range | Performed | Pathologist | | | | | At | Signature | + + + + + + | Prothrombin | 13.2 | 11.3 - 13.9 | [facility] | | | Time | | seconds | [facility] | | | | | | MEDICAL | | | | | | CENTER - | | | | | | LABORATORY | | + + + + + + | INR | 1.0Comment: Usual Oral | 0.9 - 1.1 | [facility] | | | | Anticoagulation Range: | | [facility] | | | | 2.0 - 3.0High [...] ST. | [address] | [place], [place] | [phone] | | [facility] | | [address] | | | - LABORATORY | | | | + + + + + Lactic Acid (08/26/2018 11:33 AM PST) + +-------+ + + + | Component | Value | Ref Range | Performed | Pathologist | | | | | At | Signature | + +-------+ + + + | Lactate | 1.7 | 0.5 - 2.2 | [facility] | [...] [address] | [place] | [phone] | | [facility] | | [address] | | | - LABORATORY | | | | + + + + + D-Dimer (08/26/2018 11:33 AM PST) + + + + + + | Component | Value | Ref Range | Performed | Pathologist | | | | | At | Signature | + + + + + + | D-Dimer | 0.46Comment: This | <=0.50 ug/ml | [facility] | | | Quantitativ | quantitative D-Dimer | | [facility] | | | e | assay has been evaluated | | MEDICAL | | | | for screening for | | CENTER - | | | | venous thrombotic | | LABORATORY | | | | disease, and may be | | | | | | useful in ruling out, | | | | | | but not ruling in | | | | | | disease. Values less | | | | | | than 0.50 ug/mL FEU | | | | | | (Fibrinogen Equivalent | | | | | | Units) have a negative | | | | | | predictive value of | | | | | | approximately 95% for | | | | | | ruling out large | | | | | | pulmonary emboli or | | | | | | proximal deep vein | | | | | | thrombosis. Distal DVT | | | | | | are not excluded. An | | | | | | elevated D-dimer can be | | | | | | present in patients with | | | | | | liver disease, | | | | | | , eclampsia, | | | | | | heart disease and some | | | | | | cancers among other | | | | | | conditions. The presence | | | | | | of rheumatoid factor at | | | | | | a level >50 IU/mL may | | | | | | falsely elevate the | | | | | | determined D-dimer | | | | | | levels. | | | | + + + + + + + + | Specimen | + + | Blood | + + + + + + + | Performing | Address | City/State/Zipcode | Phone Number | | Organization | | | | + + + + + | [facility] | [address] | [place] | [phone] | | [facility] | | [address] | | | - LABORATORY | | | | + + + + + Lipase (08/26/2018 11:33 AM PST) + +-------+ + + + | Component | Value | Ref Range | Performed | Pathologist | | | | | At | Signature | + +-------+ + + + | Lipase | 22 | 0 - 60 U/L | [facility] | | | | | | [facility] | | | | | | MEDICAL [...] + | [facility] | [address] | [place] | [phone] | | [facility] | | [address] | | | - LABORATORY | | | | + + + + + Comprehensive Metabolic Panel (08/26/2018 11:33 AM PST) + + + + + [...] + + + + | K | 5.1 | 3.5 - 5.1 | [facility] | | | | | mmol/L | [facility] | | | | | | [facility] | | | | | | C[facility] - | | | | | | LABORATORY | | + + + + + + | Cl | 105 | 98 - 109 mmol/L | [facility] | | | | | | [facility] | | | | | | [facility] | | | | | | [facility] - | | | | | | LABORATORY | | + + + + + + | CO2 | 24 | 24 - 31 mmol/L | [facility] | | | | [facility] | [facility] | | | | | | [facility] | | | | | | CENTER - | | | | | | LABORATORY | | + + + + + + | Anion Gap | 7 | 3 - 16 mmol/L | [facility] | [facility] | | | | | | [facility] | | | | | | CENTER - | | | | | | LABORATORY | | + + + + + + | Glucose | 127 (H) | 70 - 109 mg/dL | [facility] | | | [facility] - | | | | | | LABORATORY | | + + + + + + | BUN | 37 (H) | 7 - 18 mg/dL | [facility] | | | [facility] | [facility] | | | | | | MEDICAL | | | | | | CENTER - | | | | | | LABORATORY | | + + + + + + | Creatinine | 2.01 (H) | 0.60 - 1.30 | [facility] | | | | | mg/dL | [facility] | | | | | | MEDICAL | | | | | | CENTER - | | | | | | LABORATORY | | + + + + + + | eGFR if not | 34 (L)Comment: | >=60 | [facility] | | | | GLOMERULAR FILTRATION | mL/min/1.73m2 | [facility] | | | EMIRATI | RATE,ESTIMATED | | MEDICAL | | | | mL/min/1.25o9Pxny than | | CENTER - | | [...] + + + + | Calcium | 8.6 | 8.3 - 10.5 | [facility] | | | | | mg/dL | [facility] | | | | | | MEDICAL | | | | | | CENTER - | | | | | | LABORATORY | | + + + + + + | Albumin | 3.5 | 3.2 - 5.0 g/dL | [facility] | | | | | | [facility] | | | | | | MEDICAL | | | | | | CENTER - | | | | | | LABORATORY | | + + + + + + | Bilirubin | 0.6Comment: This is an | 0.1 - 1.5 mg/dL | [facility] | | | Total | appended report. These | | [facility] | | | | results have been | | MEDICAL | | | | appended to a previously | | CENTER - | | | | preliminary verified | | LABORATORY | | | | report. | | | | + + + + + + | Total | 6.5 | 6.0 - 7.8 g/dL | [facility] | | | Protein | | | [facility] [facility] | | | | | [facility] - | | | | | | LABORATORY | | + + + + + + | AST | 23Comment: This is an | 10 - 42 U/L | [facility] | | | | appended report. These | | [facility] | | | | results have been | | MEDICAL | | | | appended to a previously | | CENTER - | | | | preliminary verified | | LABORATORY | | | | report. | | | | + + + + + + | ALT | 31Comment: This is an | 6 - 45 U/L | [facility] | | | | appended report. These | | [facility] | | | | results have been | | MEDICAL | | | | appended to a previously | | CENTER - | | | | preliminary verified | | LABORATORY | | | | report. | | | | + + + + + + | Alkaline | 76Comment: This is an | 40 - 110 U/L | [facility] | | | Phosphatase | appended report. These | | [facility] | | | | results have been | | MEDICAL | | | | appended to a previously | | CENTER - | | | | preliminary verified | | LABORATORY | | | | report. | | | | + + + + + + | Globulin | 3.0 | 2.1 - 3.8 g/dL | [facility] | | | | | | [facility] | | [facility] | [facility] | | | | | | CENTER - | | | | | | LABORATORY | | + + + + + + | Albumin/Jillian | 1.2 | 0.8 - 2.0 | [facility] | | | bulin Ratio | | | [facility] | [facility] | [facility] | | | | | | CENTER - | | | | | | LABORATORY | | + + + + + + | BUN/Creatin | 18.4 | | [facility] | | | ine Ratio | | | [facility] | | [...] [address] | [place] | [phone] | | [facility] | | [address] | | | - LABORATORY | | | | + + + + + CBC with Differential (08/26/2018 11:33 AM PST) + + + + + + | Component | Value | Ref Range | Performed | Pathologist | | | | | At | Signature | + + + + + + | WBC | 8.9 | 4.0 - 11.0 K/uL | [facility] | | | | | [facility] | | | | | | [facility] - | | | | | | LABORATORY | | + + + + + + | RBC | 4.38 | 4.30 - 5.70 | [facility] | | | | | M/uL | [facility] | | [facility] | [facility] | | | | | | CENTER - | | | | | | LABORATORY | | + + + + + + | Hemoglobin | 12.8 (L) | 13.5 - 18.0 | [facility] | | | | | g/dL | [facility] | | | | | | [facility] | | | | | | CENTER - | | | | | | LABORATORY | | + + + + + + | Hematocrit | 40.7 | 40.0 - 51.0 % | [facility] | | | | | | [facility] | | | [facility] | | [facility] | | | | | | CENTER - | | | | | | LABORATORY | | + + + + + + | MCV | 92.9 | 83.0 - 101.0 fL | [facility] | | | | | | [facility] | [facility] | | | | | | CENTER - | | | | | | LABORATORY | | + + + + + + | MCH | 29.2 | 28.0 - 35.0 pg | [facility] | | | | | | [facility] | | | [facility] | | [facility] | | | | | | CENTER - | | | | | | LABORATORY | | + + + + + + | MCHC | 31.4 (L) | 32.0 - 36.0 | [facility] | | | | | g/dL | [facility] | | | | | | [facility]ICAL | | | | | | CENTER - | | | | | | LABORATORY | | + + + + + + | RDW-CV | 15.9 (H) | <15.0 % | [facility] | | | | | | [facility] | | | | | | [facility] | | | | | | CENTER - | | | | | | LABORATORY | | + + + + + + | RDW-SD | 53.9 (H) | 35.1 - 46.3 fL | [facility] | | | | | | [facility] | | [facility] | [facility] | | | | | | CENTER - | | | | | | LABORATORY | | + + + + + + | Platelet | 180 | 140 - 440 K/uL | [facility] | | | Count | | | [facility] | | | | | | [facility] | | | | | | CENTER - | | | | | | LABORATORY | | + + + + + + | MPV | 10.1 | 6.5 - 12.4 fL | [facility] | | | | | | [facility] | | | | | | [facility] | | | | | | CENTER - | | | | | | LABORATORY | | + + + + + + | % | 71.5 | 45.0 - 82.0 % | [facility] | | | Neutrophils | | | [facility] | | | | | | [facility]ICAL | | | | | | CENTER - | | | | | | LABORATORY | | + + + + + + | % | 15.4 (L) | 20.0 - 45.0 % | [facility] | | | Lymphocytes | | | [facility] | | | | | | [facility]ICAL | | | | | | CENTER - | | | | | | LABORATORY | | + + + + + + | % Monocytes | 9.7 | 4.0 - 12.0 % | [facility] | | | | | | [facility] | | | | | | [facility] | | | | | | CENTER - | | | | | | LABORATORY | | + + + + + + | % | 2.4 | 0.0 - 5.0 % | [facility] | | | Eosinophils | | | [facility] | | | | | | MEDICAL | | | | | | CENTER - | | | | | | LABORATORY | | + + + + + + | % Basophils | 0.2 | 0.0 - 1.0 % | [facility] | | | | | | [facility] | | | | | | [facility] | | | | | | CENTER - | | | | | | LABORATORY | | + + + + + + | % Immature | 0.8 (H)Comment: | 0.0 - 0.4 % | [facility] | | | Granulocyte | Preliminary studIes have | | [facility] | | | s | indicated the IG% | | MEDICAL | | | | and/or IG# show promise | | CENTER - | | | | as an early screen for | | LABORATORY | | | | infection. | | | | + + + + + + | Absolute | 6.35 | 1.80 - 8.50 | [facility] | | | Neutrophils | | K/uL | [facility] | | | | | | [facility]ICAL | | | | | | CENTER - | | | | | | LABORATORY | | + + + + + + | Absolute | 1.37 | 0.60 - 3.20 | [facility] | | | Lymphocytes | | K/uL | [facility] | | | | | | MEDICAL | | | | | | CENTER - | | | | | | LABORATORY | | + + + + + + | Absolute | 0.86 | 0.00 - 1.00 | [facility] | | | Monocytes | | K/uL | [facility] | | | | | | MEDICAL | | | | | | CENTER - | | | | | | LABORATORY | | + + + + + + | Absolute | 0.21 | 0.00 - 0.40 | [facility] | | | Eosinophils | | K/uL | [facility] | | | | | | MEDICAL | | | | | | CENTER - | | | | | | LABORATORY | | + + + + + + | Absolute | 0.02 | 0.00 - 0.10 | [facility] | | | Basophils | | K/uL | [facility] | | | | | | MEDICAL | | | | | | CENTER - | | | | | | LABORATORY | | + + + + + + | Absolute | 0.07 (H) | 0.00 - 0.03 | [facility] | | | Immature | | K/uL | [facility] | | | Granulocyte | | | MEDICAL | | | s | | | CENTER - | | | | | | LABORATORY | | + + + + + + | % nRBC | 0 | 0 - 2 per 100 | [facility] | | | | | WBC's | [facility] | | [facility] | | [facility]ICAL | | | | | | CENTER - | | | | | | LABORATORY | | + + + + + + | Absolute | 0.00 | 0.00 - 0.01 | [facility] | | | nRBC | | K/uL | [facility] | [...] [address] | [place] | [phone] | | [facility] | | [address] | | | - LABORATORY | | | | + + + + + documented in this encounter Visit Diagnoses + + | Diagnosis | + + | Weakness - Primary Other malaise and fatigue | + + | Adverse reaction to metoprolol, initial encounter | + + documented in this encounter Administered Medications + +---------+ +---------+-------+------+ | Medication Order | MAR | Action | Dose | Rate | Site | | | Action | Date | | | | + +---------+ +---------+-------+------+ | sodium chloride 0.9% (NS) bolus | New Bag | 08/26/20 | 500 mLs | 500 | | | 500 mL 500 mL, Intravenous, | | 18 11:39 | | mL/hr | | | Administer over 1 Hours, ONCE, | | AM PST | | | | | Radha 08/26/18 at 1130, For 1 dose | | | | | | + +---------+ +---------+-------+------+ +---+---+ | | | +---+---+ + +---------+ +---------+-------+---+ | sodium chloride 0.9% (NS) bolus | New Bag | 08/26/20 | 500 mLs | 500 | | | 500 mL 500 mL, Intravenous, | | 18 2:03 | | mL/hr | | | Administer over 1 Hours, ONCE, | | PM PST | | | | | Radha 08/26/18 at 1400, For 1 dose | | | | | | + +---------+ +---------+-------+---+ +---+---+ | | | +---+---+ documented in this encounter
--- OUTSIDE RECORDS SUMMARY | ~2020-03-04 | XMS | Encounter Summary ---
Demographics + + + | Address | [address] | | | [place] [address] | + + + | Home Phone [...] [place], [place] | | | | | [address] | | + + + + + Care Team Providers + +------+ + | Care Discharge Door Operator Name | Role | Phone | + +------+ + PCP | Unavailable | + +------+ + Reason for Visit + + + | Reason | Comments | + + + | Cardiac Rehab | | + + + Encounter Details +--------+---------+ + + + | Date | Type | Department | Care Team | Description | +--------+---------+ + + + | 11/19/ | Office | [facility] | Randy Figueroa, | Ischemic | | 2018 | Visit | MED CTR CARD[facility]AC | MD [address] | cardiomyopathy | | | | REHABILITATION [address] | [address] [place], | (Primary Dx) | | | | [address] [place] | [place] [address] | | | | | [place] [address] | [phone] | | | | | [phone] | | | +--------+---------+ + + + [...] of this encounter Progress Gael Ortega - 11/19/2017 9:00 AM PDT [facility] [address] [facility] [address] Cardiac Rehab Date: 11/19/2017 Patient Information Patient Name: Bob Will Date of : 1955 Age: 62 y.o. Encounter Diagnoses Code Name Primary? I25.5 Ischemic cardiomyopathy Yes Number of Visits Approved: 36 Taken [...] en ded up in the hospital in [place], [place]. Spent multiple days there. Any abnormal vital signs or rhythm strips will be reported in progress note. Electronically signed by: Gael Woo, 11/19/2017 16:25 Patient Name: Bob Will/: 1955/ documented in this encounte r Plan of Treatment +--------+ + + + + | Date | Type | Specialty | Care Team | Description | +--------+ + + + + | 03/12/ | Office | Nephrology | [facility], | | | 2019 | Visit | | ADARSH [address] | | | | | | [address] [facility] | | | | | | [address] [place] | | | | | | [address] | | | | | | | | +--------+ + + + + | 04/16/ | Office | Cardiology | MonicaAlin beaulieu | | | 2019 | Visit | | MD Cheryl Arreguin | | | | | | [address] | | | | | | [place] [address] | | | | | | [phone] | | | | | | | | +--------+ + + + + | 04/16/ | Procedure | Cardiology | | | | 2019 | visit | | | | +--------+ + + + + | 04/25/ | Office | Cardiology | oRcio Pearl, | | | 2019 | Visit | | MD Cheryl URENA | | | | | | [place] | | | | | | [address] | | | | | | | | +--------+ + + + + documented as of this encounter Visit Diagnoses + + | Diagnosis | + + | Ischemic cardiomyopathy - Primary Other specified forms of chronic ischemic heart | | disease | + + documented in this encounter"
--- OUTSIDE RECORDS SUMMARY | ~2020-03-04 | XMS | Encounter Summary ---
Demographics + + + | Address | [address] | | | [place] [address] | + + + | Home Phone [...] + | Author | [facility] | | | and [place] | + + + | Organization | [facility] | | | and [place] | + + + | Address | Unknown | + + + | Phone | Unavailable | + + + Support + + + + + | Name | Relationship | Address | Phone | + + + + + | [place] Will | ECON | [place], [place] | | | | | [address] | | + + + + + Care Team Providers + +------+ + | Care Nursing Home Manager Name | Role | Phone | [...] | | involving | [address] | [place] | | | | | cabazon | [place] | [place] | | | | | coronary | [address] | [address] | | | | | artery of | Phone: | Phone: | | | | | cabazon heart | [phone] | [phone] | | | | | without | Fax: | Fax: | | | | | angina | [phone] | [phone] | | | | | pectoris | | | +--------+ + + + + + Encounter Details +--------+---------+ + + + | Date | Type | Department | Care Team | Description | +--------+---------+ + + + | 08/19/ | Office | [facility] | Randy Figueroa, | Coronary artery | | 2018 | Visit | MED CTR CARDIAC | MD [address] | disease, angina | | | | REHABILITATION [address], | presence | | | | [address] [place] | [place] [address] | unspecified, | | | | [place] [address] | [phone] | unspecified vessel | | | | [phone] | | or lesion type, | | | | | | unspecified whether | | | | | | cabazon or | | | | | | [...] this encounter Progress Notes Gael Woo - 08/19/2018 10:00 AM PST [facility] CARDIAC REHABILITATION [address] [place] [address] Cardiac Rehab Date: 08/19/2018 Patient Information Patient Name: Bob Will Date of : 1955 Age: 62 y.o. Encounter Diagnoses Code Name Primary? I25.10 Coronary artery disease, angina presence unspecified, unspecified vessel or lesi on type, unspecified whether cabazon or transplanted heart Yes Z98.61 Post PTCA Number of Visits Approved: 34 Taken Medications Today? Yes Any Changes in Medications? No Any Problems to Report? No Denies any adverse symptoms during exercise. Ventricular paced rhythm without ectopy. Pre O2: 93%, Ex O2: 95%. SBP with rise during exer tion. Compliant with medications and therapeutic lifestyle changes. Continue monitored exercise. Any abnormal vital signs or rhythm strips will be reported in progress note. Electronically signed by: Gael Woo, 08/19/2018 14:38 Patient Name: Bob Will/: 1955/ ly signed by Gael Woo at 08/19/2018 2:39 PM PSTdocumented in this encounter Plan of [...] [place] | | | | | | [address] | | | | | | | | +--------+ + + + + | 04/16/ | Office | Cardiology | Alin Anderson | | | 2019 | Visit | | MD Cheryl Arreguin | | | | | | [address] | | | | | | [place] [address] | | | | | | [phone] | | | | | | | [...] [place] | | | | | | [address] | | | | | | | | +--------+ + + + + documented as of this encounter Visit Diagnoses + + | Diagnosis | + + | Coronary artery disease, angina presence unspecified, unspecified vessel or lesion | | type, unspecified whether cabazon or transplanted heart - Primary | + + | Post PTCA Postsurgical percutaneous transluminal coronary angioplasty status | + + documented in this encounter"
--- OUTSIDE RECORDS SUMMARY | ~2020-03-04 | XMS | Encounter Summary ---
Demographics + + + | Address | [address] | | | [place] [address] | + + + | Home Phone | | + + + | Preferred Language | Unknown | + + + | Marital Status | | + + + | Restorationism Affiliation | Unknown | + + + [...] [place], [place] | | | | | [address] | | + + + + + Care Team Providers + +------+ + | Care Service Delivery Director Name | Role | Phone | + +------+ + PCP | Unavailable | + +------+ + Encounter Details +--------+ + + + + | Date | Type | Department | Care Team | Description | +--------+ + + + + | 10/20/ | Abstract | [facility] [place] | Jenny, | | | 2018 | | CARDIOLOGY [address] | ADARSH [address] | | | | | [place], | [place], | | | | | [place] [address] | [place] [address] | | | | | [phone] | [phone] | | | | | | | [...] | Nephrology | Litzy, | | | 2020 | Visit | | ADARSH [address] | | | | | | [address] [place] | | | | | | [address] [place] | | | | | | [address] | | | | | | | | +--------+ + + + + | 04/16/ | Office | Cardiology | Alin Anderson | | | 2019 | Visit | | MD Cheryl Arreguin | | | | | | [address] | | | | | | [place] [address] | | | | | | [phone] | | | | | | | [...] [place] | | | | | | [address] | | | | | | | | +--------+ + + + + documented as of this encounter Procedures + +--------+ + + + | Procedure Name | Priori | Date/Time | Associated Diagnosis | Comments | | | ty | | | | + +--------+ + + + | EXTERNAL LAB: BUN | Routin | 10/17/2017 | | Results for this | | | e | | | procedure are in the | | | | | | results section. | + +--------+ + + + | EXTERNAL LAB: | Routin | 10/17/2017 | | Results for this | | GLUCOSE | e | | | procedure are in the | | | | | | results section. | + +--------+ + + + | EXTERNAL LAB: | Routin | 10/17/2017 | | Results for this | | CALCIUM | e | | | procedure are in the | | | | | | results section. | + +--------+ + + + | EXTERNAL LAB: CARBON | Routin | 10/17/2017 | | Results for this | | DIOXIDE | e | | | procedure are in the | | | | | | results section. | + +--------+ + + + | EXTERNAL LAB: | Routin | 10/17/2017 | | Results for this | | CHLORIDE | e | | | procedure are in the | | | | | | results section. | + +--------+ + + + | EXTERNAL LAB: | Routin | 10/17/2017 | | Results for this | | POTASSIUM | e | | | procedure are in the | | | | | | results section. | + +--------+ + + + | EXTERNAL LAB: SODIUM | Routin | 10/17/2017 | | Results for this | | | e | | | procedure are in the | | | | | | results section. | + +--------+ + + + | EXTERNAL LAB: CBC | Routin | 10/17/2017 | | Results for this | | | e | | | procedure are in the | | | | | | results section. | + +--------+ + + + | EXTERNAL LAB: | Routin | 10/17/2017 | | Results for this | | CREATININE | e | | | procedure are in the | | | | | | results section. | + +--------+ + + + | EXTERNAL LAB: | Routin | 10/10/2017 | | Results for this | | TRIGLYCERIDES | e | | | procedure are in the | | | | | | results section. | + +--------+ + + + | EXTERNAL LAB: | Routin | 10/10/2017 | | Results for this | | CHOLESTEROL, HDL | e | | | procedure are in the | | | | | | results section. | + +--------+ + + + | EXTERNAL LAB: | Routin | 10/10/2017 | | Results for this | | CHOLESTEROL, TOTAL | e | | | procedure are in the | | | | | | results section. | + +--------+ + + + | EXTERNAL LAB: | Routin | 10/10/2017 | | Results for this | | CHOLESTEROL, LDL | e | | | procedure are in the | | | | | | results section. | + +--------+ + + + documented in this encounter Results External Lab: DONTE (10/17/2017) + +-------+ + + + | Component | Value | Ref Range | Performed | Pathologist | | | | | At | Signature | + +-------+ + + + | BUN, | 16 | | | | | External | | | | | + +-------+ + + + External Lab: Glucose (10/17/2017) + +-------+ + + + | Component | Value | Ref Range | Performed | Pathologist | | | | | At | Signature | + +-------+ + + + | Glucose, | 113 | | | | | External | | | | | + +-------+ + + + External Lab: Calcium (10/17/2017) + +-------+ + + + | Component | Value | Ref Range | Performed | Pathologist | | | | | At | Signature | + +-------+ + + + | Calcium, | 7.4 | | | | | External | | | | | + +-------+ + + + External Lab: Carbon Dioxide (10/17/2017) + +-------+ + + + | Component | Value | Ref Range | Performed | Pathologist | | | | | At | Signature | + +-------+ + + + | Carbon | 26 | | | | | Dioxide, | | | | | | External | | | | | + +-------+ + + + External Lab: Chloride (10/17/2017) + +-------+ + + + | Component | Value | Ref Range | Performed | Pathologist | | | | | At | Signature | + +-------+ + + + | Chloride, | 104 | | | | | External | | | | | + +-------+ + + + External Lab: Potassium (10/17/2017) + +-------+ + + + | Component | Value | Ref Range | Performed | Pathologist | | | | | At | Signature | + +-------+ + + + | Potassium, | 4.5 | | | | | External | | | | | + +-------+ + + + External Lab: Sodium (10/17/2017) + +-------+ + + + | Component | Value | Ref Range | Performed | Pathologist | | | | | At | Signature | + +-------+ + + + | Sodium, | 137 | | | | | External | | | | | + +-------+ + + + External Lab: CBC (10/17/2017) + +-------+ + + + | Component | Value | Ref Range | Performed | Pathologist | | | | | At | Signature | + +-------+ + + + | WBC, | 8.59 | | | | | External | | | | | + +-------+ + + + | HGB, | 11.6 | | | | | External | | | | | + +-------+ + + + | HCT, | 35.2 | | | | | External | | | | | + +-------+ + + + | PLT, | 226 | | | | | External | | | | | + +-------+ + + + | MCV, | 92 | | | | | External | | | | | + +-------+ + + + | RDW, | 47 | | | | | External | | | | | + +-------+ + + + External Lab: Creatinine (10/17/2017) + +-------+ + + + | Component | Value | Ref Range | Performed | Pathologist | | | | | At | Signature | + +-------+ + + + | Creatinine, | 1.40 | | | | | External | | | | | + +-------+ + + + + + | Specimen | + + | Blood | + + External Lab: Triglycerides (10/10/2017) + +-------+ + + + | Component | Value | Ref Range | Performed | Pathologist | | | | | At | Signature | + +-------+ + + + | Triglycerid | 131 | | | | | es, | | | | | | External | | | | | + +-------+ + + + + + | Specimen | + + | Blood | + + External Lab: Cholesterol, HDL (10/10/2017) + +-------+ + + + | Component | Value | Ref Range | Performed | Pathologist | | | | | At | Signature | + +-------+ + + + | HDL | 21 | mg/dl | | | | Cholesterol | | | | | | , External | | | | | + +-------+ + + + + + | Specimen | + + | Blood | + + External Lab: Cholesterol, Total (10/10/2017) + +-------+ + + + | Component | Value | Ref Range | Performed | Pathologist | | | | | At | Signature | + +-------+ + + + | Cholesterol | 89 | mg/dl | | | | , Total, | | | | | | External | | | | | + +-------+ + + + + + | Specimen | + + | Blood | + + External Lab: Cholesterol, LDL (10/10/2017) + +-------+ + + + | Component | Value | Ref Range | Performed | Pathologist | | | | | At | Signature | + +-------+ + + + | LDL | 42 | | | | | Cholesterol | | | | | | , Direct, | | | | | | External | | | | | + +-------+ + + + + + | Specimen | + + | Blood | + + documented in this encounter Visit Diagnoses Not on filedocumented in this encounter"
--- OUTSIDE RECORDS SUMMARY | ~2020-03-04 | XMS | Encounter Summary ---
Demographics + + + | Address | [address] | | | [place] [address] | + + + | Home Phone [...] [place] | | | | | [address] | | + + + + + Care Team Providers + +------+ + | Care Fare Collector Name | Role | Phone | + [...] | | | heart | [place], | [place] | | | | | failure | [place] [address] | [place] | | | | | (HCC) | Phone: | [address] | | | | | I50.22 | [phone] | Phone: | | | | | Procedures | Fax: | [phone] | | | | | Cardiac | [phone] | Fax: | | | | | Rehab | | [phone] | +--------+--------+ + + + + Encounter Details +--------+---------+ + + + | Date | Type | Department | Care Team | Description | +--------+---------+ + + + | 06/30/ | Office | [facility] | Amy Olivares V, | Chronic systolic CHF | | 2019 | Visit | MED CTR CARDIAC | MD [address] | (congestive heart | | | | REHABILITATION [address] | [address] [place], [place] | failure) ([facility]) | | | | [address] | [phone] | | | | | [place] [address] | | | | | | [phone] | | | +--------+---------+ + + + [...] of this encounter Progress Gael Ortega - 06/30/2019 12:00 PM PDT [facility] CARD[facility]AC [facility]IL[facility]ATION [address] [place] [address] Cardiac Rehab 30 Day Review Date: 06/30/2019 Patient Information Patient Name: Bob Will Date of : 1955 Age: 63 y.o. Referring Provider: Amy Dai MD Encounter Diagnoses Code Name Primary? I50.22 Chronic systolic CHF (congestive heart failure) (HCC) Cardiac Rehab Phase II Leon atment Plan Bob Will (Bob) is a 63 y.o. 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 Patient's states that his PCP [...] RPE: 3-4/10 30 Day exercise assessment: Date: 06/30/19 Mode: Biostep Duration: 30*2.43 RPE: 3-4/10 60 Day exercise assessment: Date: Mode: Duration: [...] Heart Failure book Date received: 06/02/19 Gildardo guerraet Goal(s) Aerobic- moderate intensity activity 30 to [...] 5'9 " Admission Weight: 197# 30 Day Weigh t: 198# BMI: 29 60 Day Weight: Discharge Weight: [...] Healthy Dietary Education Date: 06/02/19 -Referral to [employer] Tube Bender: Date: -DVD: Healthy Eating For Life Date: [...] Exercise BP: 92/50 30 Day Resting BP: 98/58 30 Day Exercise BP: 90/58 60 Day Resting BP: 60 Day Exercise [...] exercise until stable. Date: Range: -Referral to Manager Sourcing Date: Education Points listed below- Date Completed: [...] gain strength and conditioning. Electronically signed by: Gael Woo, 06/30/2019 14:55 Patient Name: Bob Sims Suman/: 1955/ ly signed by Gael Woo at 06/30/2019 2:56 PM PDTdocumented in this encounter Plan of [...] [place] | | | | | | [id number] | | | | | | | | +--------+ + + + + | 04/16/ | Office | Cardiology | Alin Anderson | | | 2019 | Visit | | MD [address] | | | | | | [address] | | | | | | [place] [address] | | | | | | [phone] | | | | | | | | +--------+ + + + + | 04/16/ | Procedure | Cardiology | | | | 2019 | visit | | | | +--------+ + + + + | 04/25/ | Office | Cardiology | Elina Pearlgwendolyn, | | | 2019 | Visit | | MD Cheryl URENA | | | | | | [place] | | | | | | [address] | | | | | | | | +--------+ + + + + documented as of this encounter Visit Diagnoses + + | Diagnosis | + + | Chronic systolic CHF (congestive heart failure) (HCC) | + + documented in this encounter
--- OUTSIDE RECORDS SUMMARY | ~2020-03-04 | XMS | Encounter Summary ---
Demographics + + + | Address | [address] | | | [place] [address] | + + + | Home Phone [...] [place], [place] | | | | | [address] | | + + + + + Care Team Providers + +------+ + | Care Cake Cutter Machine Name | Role | Phone | + +------+ + PCP | Unavailable | + +------+ + Reason for Visit +--------+--------+ + | Reason | Onset | Comments | | | Date | | +--------+--------+ + | Other | 06/04/ | Work Release | | | 2017 | | +--------+--------+ + Encounter Details +--------+ + + + + | Date | Type | Department | Care Team | Description | +--------+ + + + + | 06/04/ | Telephone | [facility] [place] | Jenny, | Other (Work Release | | 2016 | | [address] | ADARSH [address] | ) | | | | [place], | [place], | | | | | [place] [address] | [place] [address] | | | | | [phone] | [phone] | | | | | | | [...] Encounter - Lilian Machado RN - 06/05/2017 10:58 AM PDTLetter for work release and DOT paperwork for Cardiomyopathy faxed to Marina at [phone] ....................... ....................Lilian Machado RN on 06/05/17 at 10:59 elephone Encounter - Suzanne Cheng RN - 06/04/2017 1:50 PM PDTPatient's notified, will send work release to employer and send a copy to the patient's home address. ......................... ..................SUZANNE CHENG RN on 06/04/17 at 13:51 elephone Encount geno - Hansa Alvarado ARNP - 06/04/2017 12:49 PM PDTYes, his EF is 50% so he can get back to work. Please also let patient know that EF improved. Lilian kept the paperwork for that, so it just needs to be filled and sent. Electronically signed by: ADARSH Stevens 06/04/2017 12:49 elephone Encoun Ronny Strange RN - 06/04/2017 10:25 AM PDTPatient's , [place] [facility] status of [facility]'s work release. 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 Patient had echo done today and would like to know if patient can be released back to work. Informed [place] parry cara wagner will be sent to Hansa Alvarado to further discuss and she will then be called back wi th more information. Okay per patient. ...........................................RONNY GARCIA RN on 06/04/17 at 10:29 documented in this e ncounter Plan of [...] | | | | [address] [place] | | | | | | [id number] | | | | | | | | +--------+ + + + + | 04/16/ | Office | Cardiology | Alin Anderson | | | 2019 | Visit | | MD [address] | | | | | | [address] | | | | | | [place] [address] | | | | | | [phone] | | | | | | | [...] [place] | | | | | | [address] | | | | | | | | +--------+ + + + + documented as of this encounter Visit Diagnoses Not on filedocumented in this encounter
--- OUTSIDE RECORDS SUMMARY | ~2020-03-04 | XMS | Encounter Summary ---
Demographics + + + | Address | [address] | | | [place] [address] | + + + | Home Phone [...] + + | Author | [facility] | | | and [place] | + + + | Organization | [facility] | | | and [place] | + + + | Address | Unknown | + + + | Phone | Unavailable | + + + Support + + + + + | Name | Relationship | Address | Phone | + + + + + | [place] Will | ECON | [place] | | | | | [address] | | + + + + + Care Team Providers + +------+ + | Care Legal Office Administrator Name | Role | Phone | [...] | | | heart | [place], | [place] | | | | | failure | [place] [address] | [address] | | | | | (HCC) | Phone: | [address] | | | | | I50.22 | [phone] | Phone: | | | | | Procedures | Fax: | [phone] | | | | | Cardiac | [phone] | Fax: | | | | | Rehab | | [phone] | +--------+--------+ + + + + Encounter Details +--------+---------+ + + + | Date | Type | Department | Care Team | Description | +--------+---------+ + + + | 06/16/ | Office | [facility] | Amy Olivares V, | Chronic systolic CHF | | 2019 | Visit | [facility] | MD [address] | (congestive heart | | | | REHABILITATION [address] | [address] [place], [place] | failure) ([facility]) | | | | [address] | [id number] | | | | | [place] [address] | | | | | | [phone] | | | +--------+---------+ + + + [...] + + documented as of this encounter Patient Instructions Patient Instructions Kathy Garcia, OPERATIONS ARCHITECT - 06/16/2019 12:00 PM PDT [facility] [address] [place] [address] Cardiac Rehab Date: 06/16/2019 Patient Information Patient Name: Bob Will Date of : 1955 Age: 63 y.o. Encounter Diagnoses Code Name Primary? I50.22 Chronic systolic CHF (congestive heart failure) (HCC) Number of Visits Approved: 34 kx Taken Medications Today? Yes Any Changes in Medications? No Any Problems to Report? No No complaints with exertion. Patient drives from a distance so informs us that next week wi ll be his last week. Ventricular paced rhythm without ectopy. Pre O2: 99%, SBP prior to exercise 94/66; during e xercise 96/67. Post fluid intake before discharge 86/54. Compliant with medications and therapeutic lifestyle changes. Continue monitored exercise. Any abnormal vital signs or rhythm strips will be reported in progress note. Electronically signed by: Kathy Garcia RRT, 06/16/2019 14:36 Patient Name: Bob Will/: 1955/ ly signed by Kathy Garcia RRT at 06/16/2019 2:36 PM PDT documented in this encounter Progress Notes Gael Woo - 06/16/2019 12:00 PM PDT [facility] [address] [facility] [address] Cardiac Rehab Date: 06/16/2019 Patient Information Patient Name: Bob Will Date of : 1955 Age: 63 y.o. Encounter Diagnoses Code Name Primary? I50.22 Chronic systolic CHF (congestive heart failure) (HCC) Number of Visits Approved: 34 kx Taken Medications Today? Yes Any Changes in Medications? No Any Problems to Report? No No complaints with exertion. Patient drives from a distance so informs us that next week wi ll be his last week. Ventricular paced rhythm without ectopy. Pre O2: 97%, SBP prior to exercise 90/50; during e xercise 110/55. Post fluid intake before discharge 92/54. Compliant with medications and therapeutic lifestyle changes. Continue monitored exercise. Any abnormal vital signs or rhythm strips will be reported in progress note. Electronically signed by: Gael Woo, 06/16/2019 14:22 Patient Name: Bob Will/: 1955/ ly signed by Gael Woo at 06/16/2019 2:36 PM PDTdocumented in this encounter Plan of [...] | | | | | [address] [place] [place] | | | | | | [address] | | | | | | | | +--------+ + + + + | 04/16/ | Office | Cardiology | Alin Anderson | | 2019 | Visit | | MD [address] | | | | | | [address] | | | | | | [place] [address] | | | | | | [phone] | | | | | | | | +--------+ + + + + | 04/16/ | Procedure | Cardiology | | | | 2019 | visit | | | | +--------+ + + + + | 04/25/ | Office | Cardiology | Rocio Pearl, | | | 2019 | Visit | | MD [address] | | | | | | [place] | | | | | | [address] | | | | | | | | +--------+ + + + + documented as of this encounter Visit Diagnoses + + | Diagnosis | + + | Chronic systolic CHF (congestive heart failure) (HCC) | + + documented in this encounter"
--- OUTSIDE RECORDS SUMMARY | ~2020-03-04 | XMS | Encounter Summary ---
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 | | (In-office) | | + + + Evaluate & [...] hy Chronic | [facility] | [address] | | | | | systolic CHF | [address] | [place], [place] | | | | | (congestive | [place], [place] | [address] Phone: | | | | | heart | [address] | [phone] | | | | | failure) | Phone: | Fax: | | | | | (HCC) | [phone] | [phone] | | | | | Biventricula | Fax: | | | | | | r ICD | [phone] | | | | | | (implantable [...] + + + + | 10/28/ | Procedure | [facility] | | RETOUCHER PHOTOENGRAVING-D (AICD) | | 2020 | visit | CARDIOLOGY FLUSHING | | [employer] 10/16/17 | | | | [address] | | EUL[address]IO [address] | | | | [place], [place] | | (Primary Dx) | | | | [address] | | | | | | [phone] | | | +--------+ + + + [...] documented as of this encounter Procedure Notes Elsa Romero, Direct Service Provider - 10/28/2019 11:00 AM PSTAssociated Order(s): DEVICE INT ERROGATIONProcedure(s): DEVICE INTERROGATIONPre-Procedure Diagnose(s): Biventricular ICD (im plantable cardioverter-defibrillator) in placeDevice interrogation done by Teresita Anderson Any events or changes listed in office note. See device data attached to scheduled encounter for additional details. tobacco sprayer: Elsa Romero, Device Clinic documented in this encounter Plan of Treatment +--------+ + + + + | Date | Type | Specialty | Care Team | Description | +--------+ + + + + | 03/12/ | Office | Nephrology | [facility], | | | 2019 | Visit | | [address] | | | | | | [address] [facility] | | | | | | [address] | | | | | | [address] | | | | | | | | +--------+ + + + + | 04/16/ | Office | Cardiology | Alin Anderson | | | 2019 | Visit | | MD Cheryl [address] | | | | | | [address] | | | | | | [place] [address] | | | | | | [phone] | | | | | | | | +--------+ + + + + | 04/16/ | Procedure | Cardiology | | | | 2019 | visit | | | | +--------+ + + + + | 04/25/ | Office | Cardiology | JuventinoRocio, | | | 2019 | Visit | | MD [address]yl [address] | | | | | | [place] | | | | | | [address] | | | | | | | | +--------+ + + + + documented as of this encounter Procedures + +--------+ + + + | Procedure Name | Priori | Date/Time | Associated Diagnosis | Comments | | | ty | | | | + +--------+ + + + | DEVICE INTERROGATION | Routin | 10/28/2019 | RETOUCHER PHOTOENGRAVING-D (AICKatie) | Results for this | | | e | 11:00 AM | [employer]tronic 10/16/17 | procedure are in the | | | | PST | EULOGIO [address]by | results section. | + +--------+ + + + documented in this encounter Results Device Interrogation (10/28/2019 11:00 AM PST) + + + | Narrative | Performed At | + + + | Elsa Romero, Direct Service Provider 2019 9:05 AM Device | [facility] | | interrogation done by Teresita Anderson Any events or changes listed in | | | office note. See device data attached to scheduled encounter for | | | additional details. tobacco sprayer: Elsa Romero, Device Clinic | | + + + + +---------+ + + | Performing | Address | City/State/Zipcode | Phone Number | | Organization | | | | + +---------+ + + | [facility] | | | | + +---------+ + + documented in this encounter Visit Diagnoses + + | Diagnosis | + + | RETOUCHER PHOTOENGRAVING-D (GABBI) [employer]tronic 10/16/17 E[facility]OG[facility] - Rigoberto | + + documented in this encounter"
--- OUTSIDE RECORDS SUMMARY | ~2020-03-04 | XMS | Encounter Summary ---
Demographics + + + | Address | [address] | | | [place] [address] | + + + | Home Phone | | + + + | Preferred Language | Unknown | + + + | Marital Status | | + + + | Shinto Affiliation | Unknown | + + + | Race | Unknown | + + + | Ethnic Group | Unknown | + + + Author + + + | Author | [facility] | | | and [place] | + + + | Organization | [facility] | | | and [place] | + + + | Address | Unknown | + + + | Phone | Unavailable | + + + Support + + + + + | Name | Relationship | Address | Phone | + + + + + | [place] Will | ECON | [place], [place] | | | | | [address] | | + + + + + Care Team Providers + +------+ + | Care Arabic Translator Name | Role | Phone | + [...] | | involving | [address] | [place] | | | | | [place] | [address] | [place] | | | | | coronary | [address] | [address] | | | | | artery of | Phone: | Phone: | | | | | [place] heart | [phone] | [phone] | | | | | without | Fax: | Fax: | | | | | angina | [phone] | [phone] | | | | | pectoris | | | +--------+ + + + + + Encounter Details +--------+---------+ + + + | Date | Type | Department | Care Team | Description | +--------+---------+ + + + | 11/23/ | Office | [facility] | RahulyazshirazRandy, | Acute on chronic | | 2019 | Visit | MED CTR CARDIAC | MD [address] [place] | systolic congestive | | | | REHABIL[address] [place], | heart failure (HCC) | | | | [address] [place] | [place] [address] | (Primary Dx) | | | | [place] [address] | [phone] | | | | | [phone] | | | +--------+---------+ + + + [...] encounter Progress Cheri Mchugh RRT - 11/23/2018 10:00 AM PDT [facility] [address] [place] [address] Cardiac Rehab Date: 11/23/2018 Patient Information Patient [...] by Cheri Harvey RRT at 11/23/2018 12:13 PM PDTdocumented in this en counter Plan of Treatment +--------+ + + + + | Date | Type | Specialty | Care Team | Description | +--------+ + + + + | 03/12/ | Office | Nephrology | Litzy, | | | 2019 | Visit | | [address]ARSH [address] | | | | | | [facility] | | | | | | [address] | | | | | | [address] | | | | | | | | +--------+ + + + + | 04/16/ | Office | Cardiology | Alin Anderson | | | 2019 | Visit | | MD Cheryl [address] | | | | | | [address] | | | | | | [place] [address] | | | | | | [phone] | | | | | | | [...] [place] | | | | | | [id number] | | | | | | | | +--------+ + + + + documented as of this encounter Visit Diagnoses + + | Diagnosis | + + | Acute on chronic systolic congestive heart failure (HCC) - Primary Acute on chronic | | systolic heart failure | + + documented in this encounter"
--- OUTSIDE RECORDS SUMMARY | ~2020-03-04 | XMS | Encounter Summary ---
Demographics + + + | Address | [address] | | | [place] [address] | + + + | Home Phone [...] [place], [place] | | | | | [address] | | + + + + + Care Team Providers + +------+ + | Care Supervisor Small Appliance Assembly Name | Role | Phone | + +------+ + PCP | Unavailable | + +------+ + Reason for Referral Evaluate & Treat (Emergency) +--------+ + + + + + | Status | Reason | Specialty | Diagnoses / | Referred By | Referred To | | | | | Procedures | Contact | Contact | +--------+ + + + + + | Closed | Specialty | | Diagnoses | | Familia, | | | Services | | V-tach | Jenny, | Kip Soni MD | | | Required | | (HCC) Acute | ADARSH Santo | [address] | | | | | on chronic | [address] | | | | | systolic | [place] | [address] | | | | | (congestive) | [place], | [place], [place] | | | | | heart | [place] | [address] Phone: | | | | | failure | [address] | [phone] | | | | | (HCC) | Phone: | Fax: | | | | | Ischemic | [phone] | [phone] | | | | | cardiomyopat | Fax: | | | | | | hy | [phone] | | +--------+ + + + + + Reason for Visit + + + | Reason | Comments | + + + | Follow-up | | + + + | Peripheral Artery | | | Disease | | + + + | Coronary Artery | | | Disease | | + + + | Cardiomyopathy | | + + + | Hypertension | | + + + | Congestive Heart | | | Failure | | + + + | Hyperlipidemia | | + + + Follow Up [...] | | | | | Atherosclero | [address] | [address] [place] [address] | | | | | tic heart | [address] | [address] [address] | | | | | disease of | [address] | [place], | | | | | wiyot | [address] | [place] [address] | | | | | coronary | [place] | Phone: | | | | | artery | [address] | [phone] | | | | | without | Phone: | Fax: | | | | | angina | [phone] | [phone] | | | | | pectoris ST [...] Description | +--------+---------+ + + + | 05/26/ | Office | [facility] | Jenny, | Abdominal aortic | | 2018 | Visit | CARDIOLOGY [address] | ADARSH Santo [address] | aneurysm (AAA) | | | | [place], | [place], | without rupture | | | | [place] [address] | [place] [address] | (HCC) (Primary Dx); | | | | [phone] | [phone] | Acute anterior wall | | | | | | HI (HCC); Acute on | | | | | | chronic systolic | | | | | | congestive heart | | | | | | failure (HCC); | | | | | | Benign essential | | | | | | hypertension; | | | | | | Coronary artery | | | | | | disease involving | | | | | | wiyot coronary | | | | | | artery of wiyot | | | | | | heart without angina | | | | | | pectoris; | | | | | | Atherosclerosis of | | | | | | wiyot coronary | | | | | | artery of wiyot | | | | | | heart with stable | | | | | | angina pectoris | | | | | | (HCC); PSYCHOLOGY TECHNICIAN-D (AICD) | | | | | | [employer] 10/16/17 | | | | | | [facility]; | | | | | | Hypercholesterolemia | | | | | | ; Ischemic | | | | | | cardiomyopathy; | | | | | | Mixed | | | | | | hyperlipidemia; PAD | | | | | | (peripheral artery | | | | | | disease) ([facility]) | +--------+---------+ + + + Social History [...] + + + | Blood Pressure | 104/60 | 05/26/2018 2:28 PM | | | | | PDT | | + + + + + | Pulse | 72 | 05/26/2018 2:28 PM | | | | | PDT | | + + + + + | Temperature | - | - | | + + + + + | Respiratory Rate | 20 | 05/26/2018 2:28 PM | | | | | PDT | | + + + + + | Oxygen Saturation | - | - | | + + + + + | Inhaled Oxygen | - | - | | | Concentration | | | | + + + + + | Weight | 98.4 kg (216 lb 14.9 | 05/26/2018 2:28 PM | | | | oz) | PDT | | + + + + + | Height | 175.3 cm (5' 9") | 05/26/2018 2:28 PM | | | | | PDT | | + + + + + | Body Mass Index | 32.04 | 05/26/2018 2:28 PM | | | | | PDT | | + + + + + documented in this encounter Progress Notes Hansa Alvarado ARNP - 05/26/2018 3:00 PM PDTFormatting of this note might be differen t from the original. PATIENT NAME: Bob Will : 1955: AGE: 62 y.o. PRIMARY CARE: Jeet King MD OUTPATIENT FOLLOW UP VISIT Date of Service: 05/26/2018 HISTORY OF PRESENT ILLNESS: Bob Will is a 62 y.o. male with a history of coronary artery disease post recen t anterior wall HI, post PTCA and stents of the left main, LAD and LCx on 03/15/17 and in-sten t restenosis, cardiac shock, left atrial appendage thrombus, recent status post stents to , PSYCHOLOGY TECHNICIAN-D placement in [facility] on 10/17/2017. He is being seen today for follow up coronary scott ry disease, cardiomyopathy and congestive heart failure with reduced ejection fraction. He was last seen 04/09/2018 at which time he was told to stop lisinopril, and start Entresto mg 49/51 twice a day to increase the chance to improve left ventricular systolic function. [place] blood pressure x 2 weeks. Check [place] in 1 week, and patient was enroll into phase II cardiac rehab program, and he was recommend a therapeutic lifestyle change including walk ing 30 minutes a day, choosing healthy choices of diet , including DASH diet and weight redu ction. Follow-up in three to four weeks with ADARSH Stevens to adjust medication. Since that time, he was admitted at [facility] on 05/01/2018 with worsening of c ongestive heart failure despite aggressive medical treatment. He underwent a viability scan showing no evidence of viability in the anterior wall or inferior septum. There was eviden ce of redistribution/viability in the inferior segments. He was then transferred to [place] to see if there is any potential for surgical revascularization to improve ventricular systolic function. At [place] patient underwent heart catheterization and at that poi nt a 95% stenosis of the also circumflex was treated with angioplasty with balloon leaving l ess than 10% residual stenosis. Patient was discharged with instructions to continue with m edical regimen in addition to aspirin indefinitely and dual antiplatelet therapy for at leas t the next 3 months. He has been "feeling okay". He is eager to go back to cardiac rehabilitation. He states th at mainly his symptoms were shortness of breath but he has not felt short of breath since he got out of the hospital. He has had no chest pain at all. He has not had any leg swelling . He hasn't been watching his blood pressure at home or his weight. He has not had any archie cks from his device. He believes things have been "pretty stable" since he was discharged f rom the hospital. Of note, patient was seen by the advanced heart failure team at [place]. However, patient's insurance seemed not to cover certain things in [place]. Patient is haider ling to explore [place] options and insurance options. Also, after reviewing [facility] medicat ions I have discovered the patient has not been taking Plavix. Reading through records, wallace ent was recommended to continue lifetime aspirin and Plavix at least minimal 3 months. MEDICAL, SURGICAL, AND PERSONAL HISTORY Past Medical, Surgical, Family, and Social History are reviewed in EPIC. CURRENT PROBLEMS Patient Active Problem List Diagnosis Acute anterior wall HI Coronary artery disease involving wiyot coronary artery of wiyot heart without angina pectoris Ischemic cardiomyopathy PSYCHOLOGY TECHNICIAN-D (AICD) [employer] 10/16/17 [facility] Implantable defibrillator reprogramming/check H/O atrial [...] of colon COPD (chronic obstructive pulmonary disease) CURRENT MEDICATIONS Current Outpatient Prescriptions Medication Sig Dispense Refill acetaminophen (TYLENOL) 500 mg tablet Take 1,000 mg by mouth as needed. aspirin 81 MG tablet Take 81 mg by mouth Daily. atorvaSTATin (LIPITOR) 80 MG tablet TAKE ONE TABLET BY MOUTH EVERY DAY IN THE EVENING 3 0 tablet 5 Cholecalciferol (VITAMIN D-3) 00264 units CAPS Take by mouth Once a week. gabapentin (NEURONTIN) 300 mg capsule Take 300 mg by mouth 3 times daily. HYDROcodone-acetaminophen (NORCO) 5-325 mg per tablet Take 2 tablets by mouth every 4 h ours as needed for Pain (Pain). (Patient taking differently: Take 2 tablets by mouth as need ed for Pain (Pain).) 20 tablet 0 melatonin 3 mg TABS Take 3 mg by mouth nightly. metFORMIN (GLUCOPHAGE) 500 mg tablet Take 500 mg by mouth 2 times daily (with breakfast & dinner). metoprolol succinate (TOPROL-XL) 25 mg 24 hr tablet 1 tablet in the am, 2 tablets in th e PM. 90 tablet 11 nitroglycerin (NITROSTAT) 0.[address] 1 tablet under the tongue every 5 shai janeth as needed for Chest pain. 25 tablet 3 pantoprazole (PROTONIX) 40 mg tablet Take 1 tablet by mouth every morning (before break fast). 30 tablet 5 raNITIdine (ZANTAC) 300 MG tablet Take 1 tablet by mouth nightly. sacubitril-valsartan (ENTRESTO) 49-51 mg per tablet Take 1 tablet by mouth 2 times bebo y. 60 tablet 5 spironolactone (ALDACTONE) 25 mg tablet Take 0.5 tablets by mouth Daily. 30 tablet 5 traMADol (ULTRAM) 50 mg tablet Take 50 mg by mouth every 6 hours as needed. No current facility-administered medications for this visit. ALLERGIES No Known Allergies ROS Review of Systems Constitutional: Positive for malaise/fatigue. Respiratory: Positive for shortness of breath. Cardiovascular: Negative for chest pain, palpitations and leg swelling. Neurological: Positive for weakness. Negative for dizziness. Lightheaded = No OBJECTIVE: PHYSICAL EXAM BP 104/60 | Pulse 72 | Resp 20 | Ht 1.753 m (5' 9") | Wt 98.4 kg (216 lb 14.9 oz) | BM I 32.04 kg/m Physical Exam Constitutional: He is oriented [...] or performed during the hospital encounter of 05/13/18 ECG 12 lead Narrative HEART RATE:62 bpm RR Interval:968 ms Atrial Rate:64 ms P-R Interval:176 ms P Duration:196 ms P Horizontal [place]:-6 deg P Front [place]:72 deg Q Onset:508 ms QRSD Interval:148 ms QT Interval:500 ms QTcB:508 ms QTcF:505 ms QRS Horizontal [place]:217 deg QRS [place]:167 deg I-40 Horizontal [place]:188 deg I-40 Front [place]:148 deg T-40 Horizontal [place]:231 deg T-40 Front [place]:163 deg T Horizontal [place]: deg T Wave [place]:15 deg S-T Horizontal [place]:67 deg S-T Front [place]:-59 deg Severity:- ABNORMAL ECG - INTERP:ATRIAL-SENSED VENTRICULAR-PACED COMPLEXES Electronically signed by: , 05-20-2018 05:48:28 LAB RESULTS reviewed during visit today primarily from [facility]: LIPID Lab Results Component Value Date LDLEX 42 10/10/2017 HDLEX 21 10/10/2017 TRIGEX 131 10/10/2017 CHOLEX 89 10/10/2017 CHEMISTRY Lab Results Component Value Date GLU 102 (H) 05/21/2018 GLUEX 119 (A) 04/22/2018 NA 141 05/21/2018 NAEX 138 04/22/2018 K 4.5 05/21/2018 KEX 5.0 04/22/2018 CL 108 05/21/2018 CLEX 105 04/22/2018 CO2 25 05/21/2018 CO2EX 23 04/22/2018 CALCIUM 8.7 05/21/2018 ALKPHOS 78 05/14/2018 AST 29 05/14/2018 ASTEX 15 04/22/2018 ALT 57 05/14/2018 ALTEX 21 04/22/2018 BILITOT 0.5 05/14/2018 CREA 1.69 (H) 05/21/2018 BUN 24 05/21/2018 EGFR 42 (L) 05/21/2018 EGFREX 36.0 (A) 04/22/2018 CREEX 1.9 (A) 04/22/2018 HEMATOLOGY Lab Results Component Value Date WBC 6.1 05/21/2018 WBCEX 10.2 04/22/2018 HGB 13.0 (L) 05/21/2018 HGBEX 14.0 04/22/2018 HCT 38.0 (L) 05/21/2018 HCTEX 43.0 04/22/2018 PLT 135 (L) 05/21/2018 PLTEX 171 04/22/[address] records [address] [facility] and [facility] fo r hospitalization,including H&P, Discharge Summary and lab reports on 05/2018 which is summa rized in the HPI. CV on 05/19/2018 shows 95% stenosis of the ostial circumflex treated with angioplasty only w ith a 3.75 x 16 NC balloon with <10% residual stenosis, the balloon was, iFR of the LAD was negative at 0.94%, by Khurram Canas MD. NM on 05/09/2018 shows Decreased uptake on stress and rest of the anterior wall, septum and a pex consistent with infarct, dilation of the left ventricular cavity consistent with ischemi c cardiomyopathy, (High risk, left ventricular ejection fraction is calculated at 18%, Javier nolan, Sy, DO. Stress test on 05/02/2018 shows decreased uptake on stress and rest of the anterior wall, se ptum and apex consistent with infarct, dilation of the left ventricular cavity consistent wi th ischemic cardiomyopathy, (High risk) left ventricular ejection fraction is calculated at 18%. Above data and testing is reviewed this [...] shock requiring IABP, pressor (dop amine, norepinephrine). [facility] were on divert. Patient wasn' t transferred to [facility]. B. Echocardiogram 03/17/2017 shows LV ejection fraction is severely de creased, visually estimated left ventricular ejection fraction is 20 - 25%, left ventricular systolic thickening is segmentally abnormal,mildly reduced RV systolic function. Normal R V size, no significant valvular abnormalities seen, compared to the most recent exam dated, 03/15/2017, there is no significant changes C. At [facility], patient had another STEMI code 03/29, [...] to follow up closely with a local furniture finisher in [place] . He wias dischargeed with a LifeVest [...] high grade ostial LAD and circumflex in-stent raulito noses with new left bundle branch block [...] y we will transfer the patient to [facility] for consideration of urgent coronary revascularizatio [...] dated 03/30/17, the LV FF is similar. L. Cardiac Cath ordered by [...] 04/02/2018 shows mild biatrial dilatation, mild left ventricul ar dilatation with mild eccentric left ventricular hypertrophy, there is a segmental wall mo tion abnormality with severe hypokinesis of the entire anterior and anteroseptal region. Ove rall, left ventricular systolic function is moderately decreased. LVEF is 30-35%, grade 1 le ft ventricular diastolic dysfunction, mild mitral valve regurgitation, normal right-sided pr essure, normal IVC with normal respiratory collapse, when compared to echocardiogram on 11/25, left ventricular systolic function continued to deteriorate. N. Stress test on 05/02/2018 shows decreased uptake on stress and rest of the an terior wall, septum and apex consistent with infarct, dilation of the left ventricular cavit y consistent with ischemic cardiomyopathy, (High risk) left ventricular ejection fraction is calculated at 18%. O. NM on 05/09/2018 MN on 05/09/2018 shows hibernating myocardium suspected in the right coron maciej territory involving the inferior wall and the inferior portion of the septal wall, this region may benefit from reperfusion territory, there is no significant redistribution seen i n the anterior wall or anterior portion of the septum on the 4 hour or 24-hour images sugges ting this is completely infarcted and will not benefit from reperfusion therapy in the LAD t erritory, normal perfusion seen in the left circumflex coronary artery territory involving t he lateral wall of the left ventricle, by Pierre Dan DO. P.. CV on 05/19/2018 shows 95% stenosis of the ostial circumflex treated with angioplasty o nly with a 3.75 x 16 NC balloon with <10% residual stenosis, the balloon was, iFR of the LAD was negative at 0.94%, by Khurram Canas MD. patient was recommended indefinite lifetime a spirin and at least 3-6 months of Plavix Clinically patient has very little symptoms at this time. His breathing feels back to bas perez and he has had no angina at rest or exertion. He has not gone back to cardiac rehabil itation but will be doing that soon. There has not been any leg swelling. He is in class I I of the [place] [employer] functional class. He is in treatment with aspirin, Plav ix, statin, beta clotilde 2. Ischemic Cardiomyopathy: Heart failure with reduced [...] in the se regions. C. S/P [employer] PSYCHOLOGY TECHNICIAN-D 10-16-17 Dr Darby, [facility]. Ice interrogation today shows one episode of 29 beats of SVT with no therapy required. D. Echocardiogram 11/24/2017 shows Mild left atrial dilatation, mild left ventri cular dilatation with him mild to moderate eccentric left ventricular hypertrophy, there is a segmental wall motion abnormality with severe hypokinesis of the entire anterior and anter oseptal region, overall, left ventricular systolic function is moderately decreased, LVEF is 35-40%, mild mitral valve regurgitation, mild tricuspid valve regurgitation, borderline pul monary hypertension with a peak systolic pressure of 35-40 mmHg, pacemaker lead in the right ventricle, normal IVC with normal respiratory collapse. E. patient's ejection fraction had decreased and was found to be lower in the l ast hospitalization. At this time he seems to be euvolemic and asymptomatic. We will up ti trate medications to try to improve ejection fraction. Patient's blood pressure is borderli ne low which does not allow for up titration of medications. We will slowly try to improve dedication regimen. Patient also will be referred back to advanced heart failure team where his insurance may cover him for that disease. Seems like [place] was having some insurance coverage issues but maybe [place] may be another option. 3. Ventricular tachycardia: A. Electrophysiology Study 10/16/17 shows positive EP study for induc ible ventricular tachycardia. B. He denies any symptoms. 4. [...] week ago. Viry mustafa was after his HI and at the same time patient was having ventricular tachycardia. He was initiated on amiodarone and then discontinued before discharge. The plan is to monitor thro ugh his device and see if this is a problem that needs to be addressed. Patient is not on anticoagulation he was left that way from [facility]. Patient has had several GI bleeds and he f elt at that point that he is bleeding risk are higher therefore they will be possibility of reinitiating anticoagulation if patient has more episodes of paroxysmal atrial flutter. 6. Positive screening for PAD. Not addressed today. A. Vas segmental pressures legs 11/24/2017 abnormal left ankle brachial index of 0.91 consistent with single segment disease. 7. Normocytic anemia 8. Stage III chronic kidney disease A. eGFR is 39 from 03/26/2018. PLAN: 1. Continue aspirin and Plavix 2. Patient will take metoprolol succinate 25 mg in the morning and 25 minutes in the eveni ng (patient was taking 12.5 mg twice a day instead) 3. check blood pressure and pulse twice daily for two weeks and return the log to our offic e. 4. Patient will wait himself daily. If there is any fluid accumulation then he will be a candidate to start using furosemide as needed since he is not on a diuretic at this point 5. He will follow-up in 2-4 weeks 6. Patient has been sent back to cardiac rehabilitation for exercise program 7. Referral will be made for patient to be seen by advanced heart failure clinic from [facility]. Portions of this chart may have been created with Sprooki voice recognition software. Occasi onal wrong-word or sound-alike substitutions may have occurred due to the inherent canseco itations of voice recognition software. Please read the chart carefully and recognize, using context, where these substitutions have occurred. documented in th is encounter Miscellaneous Notes Addendum Note - Lilian Sanchez RN - 05/26/2018 3:00 PM PDT Addended by: LILIAN SANCHEZ on: 05/27/2018 11:33 Modules accepted: Orders documented in this encounter Plan of Treatment [...] | | | | | [place] [address] | | | | | | [phone] | | | | | | | | +--------+ + + + + | 04/16/ | Procedure | Cardiology | | | | 2019 | visit | | | | +--------+ + + + + | 04/25/ | Office | Cardiology | Rocio Pearl, | | | 2019 | Visit | | MD Cheryl URENA | | | | | | [place] | | | | | | [address] | | | | | | | | +--------+ + + + + + + +--------+ + + | Name | Type | Priori | Associated Diagnoses | Order Schedule | | | | ty | | | + + +--------+ + + | External Referral to | Outpatient | STAT | Acute on chronic | Ordered: 05/27/2018 | | Cardiology | Referral | | systolic congestive | | | | | | heart failure (HCC) | | | | | | Ischemic | | | | | | cardiomyopathy | | + + +--------+ + + documented as of this encounter Visit Diagnoses + + | Diagnosis | + + | Abdominal aortic aneurysm (AAA) without rupture (HCC) - Primary | + + | Acute anterior wall HI (HCC) Acute myocardial infarction of other anterior wall, | | episode of care unspecified | + + | Acute on chronic systolic congestive heart failure (HCC) Acute on chronic systolic | | heart failure | + + | Benign essential hypertension Essential hypertension, benign | + + | Coronary artery disease involving wiyot coronary artery of wiyot heart without | | angina pectoris | + + | Atherosclerosis of wiyot coronary artery of wiyot heart with stable angina pectoris | | (HCC) | + + | PSYCHOLOGY TECHNICIAN-D (AICD) [employer] 10/16/17 E[facility] Darby | + + | Hypercholesterolemia Pure hypercholesterolemia | + + | Ischemic cardiomyopathy Other specified forms of chronic ischemic heart disease | + + | Mixed hyperlipidemia | + + | PAD (peripheral artery disease) (HCC) Unspecified disorders of arteries and | | arterioles | + + documented in this encounter
--- OUTSIDE RECORDS SUMMARY | ~2020-03-04 | XMS | Encounter Summary ---
Demographics + + + | Address | [address] | | | [place] [address] | + + + | Home Phone [...] [place] | | | | | [address] | | + + + + + Care Team Providers + +------+ + | Care Senior Engineering Tech Name | Role | Phone | + [...] | | | heart | [place], | [place] | | | | | failure | [place] [address] | [place] | | | | | (HCC) | Phone: | [phone] | | | | | [phone] | [phone] | Phone: | | | | | Procedures | Fax: | [phone] | | | | | Cardiac | [phone] | Fax: | | | | | Rehab | | [phone] | +--------+--------+ + + + + Encounter [...] [address] [place], [place] | failure) ([facility]) | | | | [address] | [id number] | | | | | [place] [address] | | | | | | [phone] | | | +--------+---------+ + + + [...] encounter Patient Instructions Patient Instructions Kathy Garcia, BOTTLE ASSEMBLER - 06/16/2019 12:00 PM PDT [facility] [address] [place] [address] Cardiac Rehab Date: 06/16/2019 Patient Information Patient [...] Gael Woo - 06/16/2019 12:00 PM PDT [facility] [address] [facility] [address] Cardiac Rehab Date: 06/16/2019 Patient Information Patient [...] | | | | [address] | | | | | | [address] | | | | | | | | +--------+ + + + + | 04/16/ | Office | Cardiology | Alin Anderson | | 2019 | Visit | | MD [address] | | | | | | [address] | | | | | | [place] [address] | | | | | | [phone] | | | | | | | | +--------+ + + + + | 04/16/ | Procedure | Cardiology | | | | 2019 | visit | | | | +--------+ + + + + | 04/25/ | Office | Cardiology | Rocio Pearl, | | | 2019 | Visit | | MD Cheryl URENA | | | | | | [address] | | | | | | [address] | | | | | | | | +--------+ + + + + documented as of this encounter Visit Diagnoses + + | Diagnosis | + + | Chronic systolic CHF (congestive heart failure) (HCC) | + + documented in this encounter"
--- OUTSIDE RECORDS SUMMARY | ~2020-03-04 | XMS | Encounter Summary ---
Demographics + + + | Address | [address] | | | [place] [address] | + + + | Home Phone [...] [place] | | | | | [address] | | + + + + + Care Team Providers + +------+ + | Care Special Education Paraeducator Name | Role | Phone | + [...] | | | | (moderate) | [place] [address] | [place] [address] | | | | | (HCC) | Phone: | Phone: | | | | | Procedures | [phone] | [phone] | | | | | DC OFFICE | Fax: | Fax: | | | | | OUTPATIENT | [phone] | [phone] | | | | | VISIT 25 [...] | (severe) (HCC) | | | | [place], [place] | [address] | (Primary Dx); | | | | [address] | [address] | Hypertension, renal | | | | [phone] | | disease, stage 1-4 | | [...] -coronary artery disease post recent anterior wall TN, post PTCA and stents of the left romero n, LAD and LCx on 03/15/17 -ischemiccardiomyopathy,RN MENTAL HEALTH-D placement in [facility] on 10/17/2017; LVEF 30-35% -"borderline" type 2 diabetes mellitus -serum creatinine 1.5 mg/dl 2016; 1.5-2 mg/dl 2017; 2.1-2.7 mg/dl 2018; increased to 3 mg/d l 05/31/19; now 2.4 mg/dl 08/30/19 Ashok is here with his and young grandchildren. 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 Pearl . He reports blood pressure [...] Diagnosis Date Noted PAD (peripheral artery disease) ([facility]) Priority: High Note Last Updated: 01/06/2018 Segmental pressures 11/24/17 Abnormal left ankle brachial index of 0.91 consistent with s gurvinder segment disease. Chronic kidney disease, stage IV (severe) ([facility]) 06/06/2019 Chronic systolic CHF (congestive heart failure) ([facility]) 06/02/2019 Secondary hyperparathyroidism ([facility]) 03/10/2019 Anemia in stage 3 chronic kidney disease ([facility]) 03/10/2019 Fatigue 09/17/2018 Note Last Updated: 09/17/2018 [...] any symptoms. COPD (chronic obstructive pulmonary disease) ([facility]) 05/14/2018 Actinic keratosis 04/14/2018 Basal cell carcinoma of lower extremity 04/14/2018 Benign neoplasm of skin 04/14/2018 Hypercholesterolemia 04/14/2018 Metabolic syndrome X 04/14/2018 Neoplasm of uncertain behavior of skin of trunk 04/14/2018 Polyp of colon 04/14/2018 GERD (gastroesophageal reflux disease) 11/12/2017 RN MENTAL HEALTH-D (AICD) Medtronic 10/16/17 [facility] 10/19/2017 Note Last Updated: 11/11/2017 MODEL NAME MODEL# SERIAL# DATE IMPLANTED GENERATOR Medtronic [id number] 10/16/17 RV LEAD Medtronic [id number] 10/16/17 A LEAD Medtronic [id number] 10/16/17 Coronary Sinus LEAD Medtronic [id number] 10/16/17 Indication: ischemic cardiomyopathy with reduced EF [...] 05/26/2017 Note Last Updated: 04/05/2018 S/P Medtronic RN MENTAL HEALTH-D 10-16-17 Dr Darby, [facility] Pet Scan 10/13/17 shows No Significant tracer [...] continued to deteriorate. Coronary artery disease involving shoalwater coronary artery of shoalwater heart without angina pectoris 04/06/2017 Note Last [...] with normal respiratory collapse. Acute anterior wall TN (HCC) 04/03/2017 Note Last Updated: 10/20/2017 Transthoracic [...] the 09/12/19 encounter (Office Visit) with ADARSH Mayes Medication Sig Dispense Refill acetaminophen (TYLENOL) 500 [...] (with breakfast & dinner). Cholecalciferol (VITAMIN D-3) 92908 units CAPS Take 50,000 Units by mouth [...] 1. Chronic kidney disease, stage IV (severe) ([facility]) Renal function has improved, within mos t [...] | | | | | [address] [facility] [place] | | | | | | [address] | | | | | | | | +--------+ + + + + | 04/16/ | Office | Cardiology | Alin Anderson | | 2019 | Visit | | MD [address] | | | | | | [address] | | | | | | [place] [address] | | | | | | [phone] | | | | | | | [...] [place] | | | | | | [address] | | | | | | | [...]
--- OUTSIDE RECORDS SUMMARY | ~2020-03-04 | XMS | Encounter Summary ---
Demographics + + + | Address | [address] | | | [place] [address] | + + + | Home Phone [...] [place], [place] | | | | | [address] | | + + + + + Care Team Providers + +------+ + | Care Visual Supervisor Name | Role | Phone | [...] + + | Closed | Specialty | Cardiology | Diagnoses | Marisolshiraz, | | | | Services | | Congestive | MD Randy | | | | Required | | heart | [address] | | | | | | failure, | [address] [place] [address] | | | | | | unspecified | [place], | | | | | | HF | [place] [address] | | | | | | chronicity, | Phone: | | | | | | unspecified | [phone] | | | | | | heart | Fax: | | | | | | failure type | [phone] | | | | | | ([facility]) | | | +--------+ + + + + + Encounter Details +--------+ + + + + | Date | Type | Department | Care Team | Description | +--------+ + + + + | 05/27/ | Orders Only | [facility] [place] | Randy Figueroa, | Congestive heart | | 2018 | | CARDIOLOGY [address] | [address] [place] | failure, unspecified | | | | [place], | [place], | HF chronicity, | | | | [place] [address] | [place] [address] | unspecified heart | | | | [phone] | [phone] | failure type (HCC) | | | | | | (Primary Dx) | +--------+ + + + + Social [...] [place] | | | | | | [address] | | | | | | | | +--------+ + + + + | 04/16/ | Office | Cardiology | Alin Anderson | | | 2019 | Visit | | MD Cheryl Arreguin | | | | | | [address] | | | | | | [place] [address] | | | | | | [phone] | | | | | | | [...] [place] | | | | | | [address] | | | | | | | | +--------+ + + + + + + +--------+ + + | Name | Type | Priori | Associated Diagnoses | Order Schedule | | | | ty | | | + + +--------+ + + | External Referral to | Outpatient | Routin | Congestive heart | Ordered: 05/27/2018 | | Cardiology | Referral | e | failure, unspecified | | | | [...]
--- OUTSIDE RECORDS SUMMARY | ~2020-03-04 | XMS | Encounter Summary ---
Demographics + + + | Address | [address] | | | [place] [address] | + + + | Home Phone [...] [place] | | | | | [address] | | + + + + + Care Team Providers + +------+ + | Care Chief Technician Name | Role | Phone | [...] [address] | | | | | [place], [place] | [address] [place], [place] | | | | | [address] | [address] | | | | | [phone] | | | +--------+ + + + [...] | | | | | [address] [facility] | | | | | | [address] | | | | | | [address] | | | | | | | | +--------+ + + + + | 04/16/ | Office | Cardiology | Alin Anderson | | | 2019 | Visit | | MD Cheryl Arreguin | | | | | | [address] | | | | | | [place] [address] | | | | | | [phone] | | | | | | | [...] [place] | | | | | | [address] | | | | | | | [...]
--- OUTSIDE RECORDS SUMMARY | ~2020-03-04 | XMS | Encounter Summary ---
Demographics + + + | Address | [address] | | | [place] [address] | + + + | Home Phone [...] [place], [place] | | | | | [address] | | + + + + + Care Team Providers + +------+ + | Care Crew Caller Name | Role | Phone | + +------+ + PCP | Unavailable | + +------+ + Encounter Details +--------+ + + + + | Date | Type | Department | Care Team | Description | +--------+ + + + + | 05/20/ | Abstract | [place] [facility] | [facility] | | | 2011 | | Conversion Location | SR | | | | | [address] | | | | | | [place], [place] | | | | | | [address] | | | | | | [phone] | | | +--------+ + + + [...] this encounter Last Filed Vital Signs + +---------+ + + | Vital Sign | Reading | Time Taken | Comments | + +---------+ + + | Blood Pressure | 160/100 | 02/11/2010 12:00 AM | | | | | PDT | | + +---------+ + + | Pulse | - | - | | + +---------+ + + | Temperature | - | - | | + +---------+ + + | Respiratory Rate | - | - | | + +---------+ + + | Oxygen Saturation | - | - | | + +---------+ + + | Inhaled Oxygen | - | - | | | Concentration | | | | + +---------+ + + | Weight | - | - | | + +---------+ + + | Height | - | - | | + +---------+ + + | Body Mass Index | - | - | | + +---------+ + + documented in this encounter Plan of Treatment +--------+ + + + + | Date | Type | Specialty | Care Team | Description | +--------+ + + + + | 03/12/ | Office | Nephrology | [place], | | | 2020 | Visit | | [address]SH [address] | | | | | | [address] | | | | | | [address] | | | | | | [address] | | | | | | | | +--------+ + + + + | 04/16/ | Office | Cardiology | Alin Anderson | | | 2019 | Visit | | MD Cheryl Arreguin | | | | | | [address] | | | | | | [place] [address] | | | | | | [phone] | | | | | | | [...] [place] | | | | | | [address] | | | | | | | | +--------+ + + + + documented as of this encounter Visit Diagnoses Not on filedocumented in this encounter"
--- OUTSIDE RECORDS SUMMARY | ~2020-03-04 | XMS | Encounter Summary ---
Demographics + + + | Address | [address] | | | [place] [address] | + + + | Home Phone [...] [place], [place] | | | | | [address] | | + + + + + Care Team Providers + +------+ + | Care Mill Roll Operator Name | Role | Phone | [...] | +--------+ + + + + | 10/05/ | Anesthesia | [facility] | Yong Napier MD | | | 2018 | Event | [facility] | [address] | | | | | [address] | [place] | | | | | [place] | [address] | | | | | [address] | | | | | | [phone] | | | +--------+ + + + + Anesthesia Record + + + + + | Procedure Name | Responsible | Anesthesia Start | Anesthesia Stop Time | | | Anesthesiologist | Time | | + + + + + | IZAIAH (N/A Timothy) | Yong Napier MD | 10/05/17 1049 | 10/05/17 1112 | + + + + + +----+---+ + + | Da | T | Event | Comment | | te | i | | | | | m | | | | | e | | | +----+---+ + + | 01 | 1 | | | | /2 | 0 | | | | 9/ | 4 | | | | 20 | 9 | | | | 18 | | | | +----+---+ + + | | 1 | An Start | Reassessment prior to anesthesia induction/procedure. | | | 0 | | | | | 4 | | | | | 9 | | | +----+---+ + + | | 1 | An Start | | | | 0 | Data | | | | 5 | | | | | 0 | | | +----+---+ + + | | 1 | Pre-Procedu | | | | 0 | ral Timeout | | | | 5 | Completed | | | | 5 | | | +----+---+ + + | | 1 | An | | | | 0 | Induction | | | | 5 | | | | | 6 | | | +----+---+ + + | | 1 | an stop | | | | 1 | data | | | | 1 | | | | | 1 | | | +----+---+ + + | | 1 | An Stop | Patient handed off to recovery nurse. | | | 1 | | | | | 2 | | | +----+---+ + + +------+ | Meds | +------+ + + + | Name | Total | + + + | propofol | 100 mg | + + + | propofol | 205.04 mg | + + + | lidocaine 1% | 2 mL | + + + | lactated ringers (LR) infusion | 0 mL | + + + + + | No agents on file. | + + + + | No blood administrations on file. | + + +--------+ + + + | Type | Details | Placement | Removal | +--------+ + + + | Wound | 03/15/17; 0549; Right; anterior; | 03/15/17 0549 by | 11/29/18 1643 by | | | wrist; puncture; sheath remain | Penny Singh, | User Epic | | | inserted--used a tegaderm to hold | Technologist | | | | in place; 11/29/18 | | | | | (Removed/Completed by utility); | | | | | 1643 (Removed/Completed by | | | | | utility) | | | +--------+ + + + | Arteri | 03/15/17; 0554; BUBBA ; 6 Fr.; | 03/15/17 0554 by | 05/19/18 1436 by | | al | Right; Radial; No (used a | Penny Singh, | Franny Reed, | | Sheath | tegaderm to remain in place); | Technologist | Technologist | | | Injectable (1CC OF LIDO 1%); Yes; | | | | | 05/19/18; 1436 | | | +--------+ + + + | Wound | 03/15/17; 0616; Right; groin; | 03/15/17 0616 by | 11/29/18 1643 by | | | puncture; sheath remain inserted; | Penny Singh, | User Epic | | | sutured with 2-0 silk and used a | Technologist | | | | tegaderm to hold in place; | | | | | 11/29/18 (Removed/Completed by | | | | | utility); 1643 (Removed/Completed | | | | | by utility) | | | +--------+ + + + | Arteri | 03/15/17; 0623; BUBBA ; 8 Fr.; | 03/15/17 0623 by | 05/19/18 1436 by | | al | Right; Femoral; Yes (2-0 SILK ); | Penny Singh, | Franny Reed, | | Sheath | Injectable (10cc lido 1% ); Yes; | Technologist | Technologist | | | 05/19/18; 1436 | | | +--------+ + + + | IAB | 03/15/17; 0624; Yes; | 03/15/17 0624 by | 05/19/18 1436 by | | Cathet | Chlorhexidine/Isopropyl Alcohol; | Penny Singh, | Franny Reed, | | er | Yes; No; All; Intervent. | Technologist | Technologist | | | Radiology; Observer; BUBBA ; | | | | | Attending physician; No; New | | | | | indication for central line | | | | | (e.g., hemodynamic monitoring, | | | | | fluid/medication administration, | | | | | etc.); Maquet/Datascope; Right | | | | | femoral | | | +--------+ + + + | Airway | Placement Date: 03/15/17; | 03/15/17 075 by | 11/29/18 1643 by | | | Placement Time: 0759; Attempts: | Blas Grissom, | User Epic | | | >3; Airway Type: endotracheal; | RN | | | | Size: 7; Removal Date: 11/29/18 | | | | | (Removed/Completed by utility); | | | | | Removal Time: 1643 | | | | | (Removed/Completed by utility) | | | +--------+ + + + | Venous | 03/15/17; 45; pavithra ; 6 Fr.; | 03/15/17 0845 by | 05/19/18 1436 by | | | Right; Femoral; Yes (2-0 silk); | Penny Singh, | Franny Reed, | | Sheath | Injectable; Yes; 05/19/18; 1436 | Technologist | Technologist | +--------+ + + + | Urethr | 10/03/17; 0600; yes; indicated | 10/03/17 06 by | 10/08/17944 by | | al | for critically ill with need for | Demetra Kirk RN | Yesenia Ramos RN | | Cathet | accurate I/O; All elements; Bag | | | | er | positioned below the bladder, | | | | | System checked to verify closed | | | | | connections & no dependent loops, | | | | | obstructions/kinks, Catheter | | | | | securement applied; indwelling | | | | | double lumen catheter; 100% | | | | | silicone; None; leg bag to | | | | | dependent drainage; urethral | | | | | catheter removed; new orders to | | | | | d/c.; 10/08/17; 0945 | | | +--------+ + + + | Airway | Placement Date: 10/03/17; | 10/03/17929 by | 10/05/171945 by | | | Placement Time: 929; Airway | Shoaib Bueno, | Ashleigh Pack RN | | | Type: endotracheal; Size: 7.5; | HOME SALES CONSULTANT | | | | Removal: per protocol; Removal | | | | | Date: 10/05/17; Removal Time: | | | | | 1946 | | | +--------+ + + + | Periph | 10/03/17; 0930; Left; Forearm; | 10/03/17 0930 by | 10/07/17 0116 by | | wilber | jaah-vqx-fbomrz catheter system; | Demetra Kirk RN | Dalia Diaz RN | | IV | 20 gauge; site symptomatic; | | | | | 10/07/17; 0116 | | | +--------+ + + + | Wound | 10/03/17; 1436; Right; anterior; | 10/03/17 1436 by | 11/29/18 1643 by | | | groin; puncture; Sheath sutured | Nikki Jarvis, | User Epic | | | into place with 0-silk, Then | Technologist | | | | connected to Arterial line; | | | | | 11/29/18 (Removed/Completed by | | | | | utility); 1643 (Removed/Completed | | | | | by utility) | | | +--------+ + + + | Periph | 10/03/17; 1640; Right; Proximal, | 10/03/17 1640 by | 10/07/17 0117 by | | eral | Medial; Upper Arm; | Demetra Kirk RN | Dalia Diaz RN | | IV | laai-jqc-ccydkm catheter system; | | | | | 18 gauge; 0; site symptomatic; | | | | | 10/07/17; 0117 | | | +--------+ + + + | NG/OG | 10/03/17; 2318; Jeffy sump; | 10/03/17 2318 by | 10/05/17 1315 by | | | center mouth; stomach; medication | Ashleigh Pack RN | Demetra Kirk RN | | | administration, gastric | | | | | decompression; 10/05/17; 1315 | | | +--------+ + + + documented in this encounter Social History + +-------+ +--------+------+ | Tobacco [...] + + documented as of this encounter [place] Notes Anesthesia Postprocedure Evaluation - Yong Napier MD - 10/05/2017 1:06 PM PSTFormattin g of this note might be different from the original. ANESTHESIA POSTANESTHESIA EVALUATION Bob Will 61 y.o. male 1955 [id number] Procedure(s) EGD (N/A Mouth) Cooperates? Yes Mental Status Performs simple tasks. Respiratory Satisfactory - Airway patent (self maintained). Cardiovascular Satisfactory - Blood pressure and heart rate acceptable Temperature Satisfactory Pain Satisfactory N/V Control Satisfactory Hydration Satisfactory - No signs of dehydration Complications None apparent Vitals: 10/05/17 0747 10/05/17 1135 10/05/17 1200 BP: 134/72 141/85 148/79 Arterial Line BP: Pulse: 87 98 100 Temp: 37.4 C (99.3 F) 37.8 C (100 F) 37.9 C (100.2 F) Resp: 17 23 (!) 33 SpO2: 95% 94% 96% Electronically signed by Yong Napier MD 10/05/2017 13:06 [facility] NET[facility]KElectronically signed by Yong Napier MD at 10/05 1:06 PM PSTAnesthesia Preprocedure Evaluation - Yong Napier MD - 10/05/2017 10:44 AM PST ANESTHESIA PREANESTHESIA EVALUATION Bob Will 61 y.o. male 1955 [id number] Procedure(s): EGD (N/A Mouth) Review of Systems / Med History Cardiovascular (+) CAD, past [place] (+) PVD: Pulmonary On ventilator. 40% O2.. (+) pneumonia Physical Exam Airway intubated ETT/trach in place. Anesthesia Plan ASA 4 Type: TIVA. Induction: Intravenous. Potential problems: None anticipated. Monitors: Standard ASA monitors. Consent statement:Anesthetic plan, alternatives, risks and benefits discussed with patient and spouse. Risks discussed included (but were not limited to): sore throat, respiratory events, heart problems, dental injury, . Consenting person understands and agrees to proceed. documented in this enc ounter Plan of [...] [place] | | | | | | [id number] | | | | | | | | +--------+ + + + + | 04/16/ | Office | Cardiology | Alin Anderson | | | 2019 | Visit | | MD [address] | | | | | | [address] | | | | | | [place] [address] | | | | | | [phone] | | | | | | | [...] [place] | | | | | | [address] | | | | | | | | +--------+ + + + + documented as of this encounter Visit Diagnoses Not on filedocumented in this encounter Administered Medications + + + +------+-------+------+ | Medication Order | MAR | Action | Dose | Rate | Site | | | Action | Date | | | | + + + +------+-------+------+ | lactated ringers (LR) infusion | Rate/Dos | 10/05/19 | | 100 | | | at 60 mL/hr, Intravenous, | e Change | 18 10:50 | | mL/hr | | | CONTINUOUS, Starting 10/03/17 | | AM PST | | | | | at 1945 | | | | | | + + + +------+-------+------+ + + +---+ +---+ | Rate/Dose Change | 10/04/19 | | 60 mL/hr | | | | 18 1:01 | | | | | | PM PST | | | | + + +---+ +---+ | New Bag | 10/03/19 | | 100 | | | | 18 9:41 | | mL/hr | | | | PM PST | | | | + + +---+ +---+ +---+---+ | | | +---+---+ + +-------+ +-------+---+---+ | lidocaine (PF) 1% injection | Given | 10/05/19 | 2 mLs | | | | Infiltration, PRN, Starting Mon | | 18 10:56 | | | | | 10/05/17 at 1056, Anesthesia | | AM PST | | | | | Intra-op | | | | | | + +-------+ +-------+---+---+ +---+---+ | | | +---+---+ + + + + + +---+ | propofol (DIPRIVAN) injection | Rate/Dos | 10/05/19 | 50 | 28 mL/hr | | | Intravenous, CONTINUOUS PRN, | e Change | 18 11:11 | mcg/kg/m | | | | Starting 10/05/17 at 1045, | | AM PST | in | | | | Anesthesia Intra-op | | | | | | + + + + + +---+ + + + + +---+ | Rate/Dose Change | 10/05/19 | 100 | 55.9 | | | | 18 10:54 | mcg/kg/m | mL/hr | | | | AM PST | in | | | + + + + +---+ | New Bag | 10/05/19 | 50 | 28 mL/hr | | | | 18 10:45 | mcg/kg/m | | | | | AM PST | in | | | + + + + +---+ +---+---+ | | | +---+---+ + +-------+ +--------+---+---+ | propofol (DIPRIVAN) injection | Given | 10/05/19 | 100 mg | | | | Intravenous, PRN, Starting Mon | | 18 10:55 | | | | | 10/05/17 at 1100, Anesthesia | | AM PST | | | | | Intra-op | | | | | | + +-------+ +--------+---+---+ +---+---+ | | | +---+---+ documented in this encounter"
--- OUTSIDE RECORDS SUMMARY | ~2020-03-04 | XMS | Encounter Summary ---
Demographics + + + | Address | [address] | | | [place] [address] | + + + | Home Phone [...] [place] | | | | | [address] | | + + + + + Care Team Providers + +------+ + | Care Events Intern Name | Role | Phone | + +------+ + | Amy Olivares MD | PCP | | + +------+ + Reason for Visit +--------+--------+ + | Reason | Onset | Comments | | | Date | | +--------+--------+ + | Other | 04/19/ | | | | 2018 | | +--------+--------+ + Encounter Details +--------+ + + + + | Date | Type | Department | Care Team | Description | +--------+ + + + + | 04/19/ | Telephone | [facility] | Jenny, | Other | | 2018 | | CARDIOLOGY [address] | ADARSH [address] | | | | | [place], | [place], | | | | | [place] [address] | [place] [address] | | | | | [phone] | [phone] | | | | | | | [...] this encounter Miscellaneous Notes Telephone Encounter - Cathi Stockton RN - 04/19/2019 12:50 PM PDTPatient was not sched uled for stress test. Persantine ordered. Called Ashok and scheduled Persantine And reviewed instructions. Also mailed copy of instruc titen to his home address. Persantine/Lexiscan Myoview Date: 05/12/19 Check-in Time: 10:30am Where to Check In: [facility] Admitting Desk Instructions 1. Nothing to eat or drink anything 6 hours prior to Persantine/Lexiscan 2. DO NOT drink caffeine 12 hours prior to the test. 3. DO NOT take any Metoprolol or Nitro SL the night before or the morning of the test. 4. You can take all other medications the morning of the test with a small sip of water. 5. Please bring a list of your current medications and these instructions with you. Resting Portion of test: Date: 05/12/19 Check-in Time: 3:15 pm Where to Check In: Imaging ...........................................Cathi Stockton RN on 04/19/19 at 12:57 eleHansa Mcclellan ARNP - 04/19/2019 11:04 AM PDTCan we find out if he is going or when he is having the stress test? Electronically signed by: ADARSH Stevens 04/19/2019 11:05 documented in th is encounter Plan of [...] [place] | | | | | | [address] | | | | | | | | +--------+ + + + + | 04/16/ | Office | Cardiology | Alin Anderson | | | 2019 | Visit | | MD Cheryl Arreguin | | | | | | [address] | | | | | | [place] [address] | | | | | | [phone] | | | | | | | [...] [place] | | | | | | [address] | | | | | | | | +--------+ + + + + documented as of this encounter Visit Diagnoses Not on filedocumented in this encounter"
--- OUTSIDE RECORDS SUMMARY | ~2020-03-04 | XMS | Encounter Summary ---
Demographics + + + | Address | [address] | | | [place] [address] | + + + | Home Phone | | + + + | Preferred Language | Unknown | + + + | Marital Status | | + + + | Protestant Affiliation | Unknown | + + + | Race | Unknown | + + + | Ethnic Group | Unknown | + + + Author + + + | Author | [facility] | | | and [place] | + + + | Organization | [facility] | | | and [place] | + + + | Address | Unknown | + + + | Phone | Unavailable | + + + Support + + + + + | Name | Relationship | Address | Phone | + + + + + | [place] | E[place] | [place] | | | | | [address] | | + + + + + Care Team Providers + +------+ + | Care Food Prep Worker Name | Role | Phone | + +------+ + | Amy Olivares MD | PCP | | + +------+ + Encounter Details +--------+ + + + + | Date | Type | Department | Care Team | Description | +--------+ + + + + | 06/06/ | Orders Only | [facility] [place] | [place], | Chronic kidney | | 2019 | | NEPHROLOGY [address] | [address] | disease, stage IV | | | | [address] | [address] | (severe) (HCC) | | | | [place], [place] | [address] [place], [place] | (Primary Dx) | | | | [address] | [address] | | | | | [phone] | | | +--------+ + + + [...] documented as of this encounter Progress Notes Sharon Saldana RN - 06/06/2019 1:50 PM PDTLabs for upcoming nephrology appointment sent to: Expected in two weeks sent to InterpathElectronically signed by Sharon Saldana RN at 05/10 1:54 PM PDTdocumented in this encounter Plan of [...] [place] | | | | | | [id number] | | | | | | | | +--------+ + + + + | 04/16/ | Office | Cardiology | Alin Anderson | | | 2019 | Visit | | MD [address] | | | | | | [address] | | | | | | [place] [address] | | | | | | [phone] | | | | | | | [...] [place] | | | | | | [address] | | | | | | | | +--------+ + + + + documented as of this encounter Visit Diagnoses + + | Diagnosis | + + | Chronic kidney disease, stage IV (severe) (HCC) - Primary Chronic kidney disease, | | Stage IV (severe) | + + documented in this encounter"
--- OUTSIDE RECORDS SUMMARY | ~2020-03-04 | XMS | Encounter Summary ---
Demographics + + + | Address | [address] | | | [place] [address] | + + + | Home Phone [...] [place], [place] | | | | | [address] | | + + + + + Care Team Providers + +------+ + | Care Machining Supervisor Name | Role | Phone | [...] + + | 11/26/ | Office | [facility] | RahulyazshirazRandy, | Coronary artery | | 2018 | Visit | [facility]ARD[facility] | MD [address] | disease involving | | | | REHABILITATION [address] | [place], | [place] coronary | | | | [address] [place] | [place] [address] | artery of [place] | | | | [place] [address] | [phone] | heart without angina | | | | [phone] | | pectoris (Primary | | | [...] Mchugh, BARRON - 11/26/2017 9:00 AM PDT [facility] [address] [place] [address] Cardiac Rehab Date: 11/26/2017 Patient Information Patient Name: Bob Will Date of : 1955 Age: 62 y.o. Encounter Diagnoses Code Name Primary? I25.10 Coronary artery disease involving [place] coronary artery of [place] heart without angina pectoris Yes Number of [...] en ded up in the hospital in [place], [place]. Spent multiple days there. Any abnormal [...] | | | | | [facility] | | | | | | [address] | | | | | | [id number] | | | | | | | | +--------+ + + + + | 04/16/ | Office | Cardiology | Alin Anderson | | | 2019 | Visit | | MD Cheryl Arreguin | | | | | | [address] | | | | | | [place] [address] | | | | | | [phone] | | | | | | | [...] [place] | | | | | | [address] | | | | | | | | +--------+ + + + + documented as of this encounter Visit Diagnoses + + | Diagnosis | + + | Coronary artery disease involving [place] coronary artery of [place] heart without | | angina pectoris - Primary | + + documented in this encounter"
--- OUTSIDE RECORDS SUMMARY | ~2020-03-04 | XMS | Encounter Summary ---
Demographics + + + | Address | [address] | | | [place] [address] | + + + | Home Phone | | + + + | Preferred Language | Unknown | + + + | Marital Status | | + + + | Latter-Day Affiliation | NRP | + + + | Race | White | + + + | Ethnic Group | Not or | + + + Author + + + | Author | [facility] | + + + | Organization | [facility] | + + + | Address | Unknown | + + + | Phone | Unavailable | + + + Support + + + + + | Name | Relationship | Address | Phone | + + + + + | Venice Mckeon | ECON | [address] | | | | | [place] [address] | | + + + + + Care Team Providers + +------+ + | Care Customer Service Associate Name | Role | Phone | [...] | | | MRI SPINE | [facility] | [address] | | | | | CERVICAL WO | [address] | [address] | | | | | CONTRAST | Ave | [facility] [place] | | | | | | Mailcode: | Research | | | | | | [facility] | Center | | | | | | for Health | [place], [place] | | | | | | and Healing, | [address] | | | | | | Building [address], | Phone: | | | | | | 8th Floor | [phone] | | | | | | [place], [place] | Fax: | | | | | | [address] | [phone] | | | | | | Phone: | | | | | | | [phone] | | | | | | | Fax: | | | | | | | [phone] | | +--------+--------+ + + + + [...] | | | | pain | MD [address] | | | | | syndrome | [address] | [address] | | | | | Degeneration | [address] | [place], [place] | | | | | of cervical | [place], | [address] | | | | | | [place] [address] | Phone: | | | | | intervertebr | Phone: | [phone] | | | | | al disc | [phone] | Fax: | | | | | chronic | Fax: | [phone] | | | | | spine pain | [phone] | | | | | | cervical | | | | | | | stenosis | | | +--------+--------+ + + + + Encounter Details +--------+---------+ + + + | Date | Type | Department | Care Team | Description | +--------+---------+ + + + | 02/18/ | Office | [facility] | Sapna Dutta MD | Neck pain; 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 You may want to enrike nolan a smoking cessation program to help you quit smoking. When you choose a program, look for one that has proven success. Ask your doctor for ideas. You will greatly increase your [facility] es of success if you take medicine [...] a smoking cessation program, such as the [facility]'s [place] from Smoking program. Set a quit date. [...] in several forms, many of them available zkne-qib-aopmsor: Nicotine patches Nicotine gum and lozenges Nicotine [...] Smoking: After Your Visit", log into your [employer] account at [email or web address]. You can enter [id number] in the Submittable" search box. Not on [employer]? Review the [employer]er section of your After Visit Summary for directions on ho w to sign up. [id number] [employer]. Care instructions adapted under license by [facility]. This care instruction is for use with your licensed healthcar e professional. If you have questions about a medical condition or this instruction, always ask your healthcare professional. [employer] disclaims any warranty or liabili ty for your use of this information. Content Version: 9.3.75991; Last Revised: March 26, 2011 Information about [...] frequently to treat pain of longstanding duration. [facility] Npncttrxamtfhu signed by Sapna Dutta MD at 02/19/2012 11:42 AM PDT documented in this encounter Progress Notes Sapna Dutta MD - 02/19/2012 10:50 AM PDT [facility] Office Visit Date: 02/19/2012 Mr. Mckeon was referred for Spine Center evaluation by Yesi Guerrero MD [facility] [address] [place] [address]. Reason for consult: Chief Complaint: Chief Complaint [...] offered surgery. 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 He lives with h is of 7 years, and they get along well. 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 He does not feel that he has had effective therapy for this problem. . He is here to "just get rid of the pain." Mr. 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 He was in combat. He does [...] by mouth two times daily. MULTIVITAMIN WITH [id number] 400 MCG-300 MCG-120 MG TAB Take by [...] : 1955 Age: 56 Sex: M Acct: [id number] Loc: MRI Exam Date: 11/05/2011 Status: REG REF Radiology No: Unit No: [id number] EXAM# TYPE/EXAM RESULT CPT CODE [id number] MRI/CERVICAL SPINE W/O CONTRAST [id number] EXAM: MRI CERVICAL SPINE, Nov 05, 2011 01:04:00 PM. CLINICAL HISTORY: Chronic neck and left arm pain. COMPARISON: Cervical spine MRI from [facility] on 02/14/2010. TECHNIQUE: T1 and T2 [...] consider this. Mr. Mckeon cannot come to [facility] for treatment on any kind of [...] branch denerva tion option SAPNA DUTTA MD [facility] documented in this encounter Plan [...] | 1955 Age: 56 Sex: M Acct: [id number] Loc: MRI Exam Date: | | | 11/05/2011 Status: REG REF Radiology No: Unit No: [id number] | | | EXAM# TYPE/EXAM RESULT CPT CODE [id number] MRI/CERVICAL SPINE W/O | | | CONTRAST [id number] EXAM: MRI CERVICAL SPINE, Nov 05, 2011 01:04:00 | | | PM. CLINICAL HISTORY: Chronic neck and left arm pain. | | | COMPARISON: Cervical spine MRI from [facility] on | | | 02/14/2010. TECHNIQUE: [...]
--- OUTSIDE RECORDS SUMMARY | ~2020-03-04 | XMS | Encounter Summary ---
Demographics + + + | Address | [address] | | | [place] [address] | + + + | Home Phone [...] [place] | | | | | [address] | | + + + + + Care Team Providers + +------+ + | Care Motion Picture Photographer Name | Role | Phone | + [...] | | | | | involving | [address] | [place] | | | | | [place] | [place], [place] | [place] | | | | | coronary | [address] | [address] | | | | | artery of | Phone: | Phone: | | | | | cantwell heart | [phone] | [phone] | | | | | without | Fax: | Fax: | | | | | angina | [phone] | [phone] | | | | | pectoris | [...] | | | | | | | Coronary | | | | | | | Artery | | | | | | | Disease | | | +--------+--------+ + + + + Encounter Details +--------+ + + + + | Date | Type | Department | Care Team | Description | +--------+ + + + + | 05/13/ | Hospital | [facility] | Tay Sky | Chronic systolic | | 2018 - | Encounter | [facility] | MD Yovana [address] | congestive heart | | | | CARDIAC TELEMETRY | [address] [place], | failure (HCC); | | 05/21/ | | [address] | [place] [address] | Ischemic | | 2018 | | MARKO [place] | [phone] | cardiomyopathy; | | | | [address] | | Coronary artery | | | | [phone] | | disease involving | | | | | | cant[place] coronary | | | | | | artery of [place] | | | | | | heart without angina | | | | | | pectoris; Dyspnea | | | | | | on exertion; Angina | | | | | | of effort ([facility]); | | | | | | Biventricular ICD | | | | | | (implantable | | | | | | cardioverter-defibri | | | | | | llator) in place; | | | | | | Family history of | | | | | | sudden ; | | | | | | Atherosclerosis of | | | | | | [place] coronary | | | | | | artery of [place] | | | | | | heart with stable | | | | | | angina pectoris | | | | | | (HCC); Benign | | | | | | essential | | | | | | hypertension; | | | | | | Congestive [...] + + + | Blood Pressure | 122/63 | 05/21/2018 7:00 AM | | | | | PDT | | + + + + + | Pulse | 69 | 05/21/2018 7:00 AM | | | | | PDT | | + + + + + | Temperature | 35.6 C (96 F) | 05/21/2018 7:00 AM | | | | | PDT | | + + + + + | Respiratory Rate | 16 | 05/21/2018 7:00 AM | | | | | PDT | | + + + + + | Oxygen Saturation | 97% | 05/21/2018 7:00 AM | | | | | PDT | | + + + + + | Inhaled Oxygen | - | - | | | Concentration | | | | + + + + + | Weight | 95.6 kg (210 lb 12.8 | 05/20/2018 5:00 PM | | | | oz) | PDT | | + + + + + | Height | 175.3 cm (5' 9") | 05/13/2018 4:54 PM | | | | | PDT | | + + + + + | Body Mass Index | 31.13 | 05/13/2018 4:54 PM | | | | | PDT | | + + + + + documented in this encounter Discharge Summaries Janel Hester ARNP - 05/21/2018 8:59 AM PDTFormatting of this note might be diffe rent from the original. DISCHARGE SUMMARY [facility] PATIENT NAME/: Bob Will, (1955) DATE OF ADMISSION: 05/13/2018 DATE OF DISCHARGE: 05/21/2018 DATE OF SERVICE: 05/21/2018 DISCHARGING MID-LEVEL: ADARSH Yoon DISCHARGING PHYSICIAN: Macho Arredondo MD DISPOSITION: Discharge to home BRIEF HOSPITAL COURSE: Please see the history and physical at the time of admission. Briefly, Mr. Will is a 62 y.o. male who was admitted on 05/13/2018 due to severe coronary artery disease and ischemi c cardiomyopathy. Previously hospitalized at [facility] in March 2017 with thrombosed left main ar maurice treated with PCI of left main into LAD and subsequent PCI of left circumflex. He suffe red acute cardiogenic shock status post ECMO, left atrial clots, previously on Coumadin. Mckeon bsequently hospitalized again in October 2017 for pneumonia and unstable angina and underwe nt a drug-eluting stent to ostial left circumflex and angioplasty of the left main with ball oon inflation extending into the left anterior descending. Patient subsequently admitted to [facility] in 04/2018 with symptoms of congestive heart failure with an LVEF of 25%. During th is hospitalization patient underwent a successful PCI of circumflex, with notable improvemen t in symptoms of orthopnea. Echocardiogram during this hospitalization noted an LVEF of 35% . Patient will not be discharged home on Lasix, only spironolactone due to low filling pressu res, and elevated creatinine. He was given a lab slip to have labs done in 1 week. Patient was also educated on the importance of taking Plavix every day without stopping, as it may cause a re-in-stent stenosis. He was also educated that he should be on aspirin indefinitel y. Unfortunately patient lives in [place], and his insurance is not contracted with [facility] or heart [facility]. He will follow-up with Dr. Kay in [place]. He was scheduled with a nurse practitioner in the office for next Thursday. She was discharged home in stable condition on the morning of May 21. He understands he can call our office with any questions or concerns. [facility] with instructions to transfer to his home pharmacy. MASTER PROBLEM LIST: Patient Active Problem List Diagnosis Date Noted POA PAD (peripheral artery disease) Unknown Priority: High COPD (chronic obstructive pulmonary disease) 05/14/2018 Yes Actinic keratosis 04/14/2018 Unknown Basal cell carcinoma of lower extremity 04/14/2018 Unknown Benign neoplasm of skin 04/14/2018 Unknown Hypercholesterolemia 04/14/2018 Unknown Metabolic syndrome X 04/14/2018 Unknown Neoplasm of uncertain behavior of skin of trunk 04/14/2018 Unknown Polyp of colon 04/14/2018 Unknown GERD (gastroesophageal reflux disease) 11/12/2017 Unknown FIELD SERVICES MANAGER-D (AICD) [employer] 10/16/17 [facility] 10/19/2017 Yes Implantable defibrillator reprogramming/check 10/19/2017 Unknown H/O atrial flutter 10/19/2017 Unknown Acute on chronic systolic congestive heart failure 10/17/2017 Yes Ischemic cardiomyopathy 05/26/2017 Yes Coronary artery disease involving cantwell coronary artery of cantwell heart without angina pectoris 04/06/2017 Yes Acute anterior wall ID 04/03/2017 Unknown Generalized pain 03/24/2017 Unknown Abdominal aortic aneurysm (AAA) without rupture 03/18/2017 Unknown Coronary atherosclerosis 03/15/2017 Unknown Family history of sudden 06/18/2009 Unknown Mixed hyperlipidemia 04/16/2009 Yes Nocturia 04/16/2009 Unknown Benign essential hypertension 03/15/2009 Unknown Benign prostatic hyperplasia without urinary obstruction 03/15/2009 Unknown Family history of malignant neoplasm of gastrointestinal tract 03/15/2009 Unknown Family history of stroke 03/15/2009 Unknown Impotence of organic origin 03/15/2009 Unknown Neck pain 09/07/2008 Unknown VITALS: Temp: 35.6 C (96 F) BP: 122/63 Pulse: 69 Resp: 16 SpO2: 97 % WEIGHT: Today's Weight: 95.6 kg (210 lb 12.8 oz) Admit Weight: 94.6 kg (208 lb 8.9 oz) BRIEF EXAM TODAY: General Appearance - alert, in no distress Heart - regular rate and rhythm, S1 and S2 normal, no murmur, rub, or gallop. Lungs - clear to auscultation bilaterally Musc/Skel - moves all extremities Extremities - no significant edema Neurologic - no focal deficits Incision - OK Ischemic cardiomyopathy [I25.5 (ICD-10-CM)] 04/05/2018 10:14 - Sebastian, [employer] Technician Narrative Transthoracic Echocardiography Report (TTE) Demographics Patient Name MIKE VELASQUEZ Room Number Neena Patient Number [id number] Date of Study 04/02/2018 Visit Number [id number] Referring Physician NEMO AGUILAR Number Date of 1955 Machine Heel Sprayer FRANNIE ISAACS RDCS Age 62 year(s) Interpreting NEMO AGUILAR Caster Operator RANDY VINCENT MD Gender Male Nurse Stress Wind Power Project Manager Procedure Type of Study TTE procedure: ECHO Complete. Procedure date Date: 04/02/2018Start: 08:05 AM Technical Quality: Limited visualizationStudy Location: Echo Lab Indications: CARDIOMYOPATHY 425.4/ I42.9. Patient Status: Routine Height: 70 inchesWeight: 218 poundsBSA: 2.17 m^2BMI: 31.28 kg/m^2 Rhythm: Normal Sinus Rhythm Conclusions Summary 1. Mild biatrial dilatation. 2. Mild left ventricular dilatation with mild eccentric left ventricular hypertrophy. There is a segmental wall motion abnormality with severe hypokinesis of the entire anterior and anteroseptal region. Overall, left ventricular systolic function is moderately decreased. LVEF is 30-35%. 3. Grade 1 left ventricular diastolic dysfunction. 4. Mild mitral valve regurgitation. 5. Normal right-sided pressure. 6. Normal IVC with normal respiratory collapse. 7. When compared to echocardiogram on 11/25/17, left ventricular systolic function continued to deteriorate. CORONARY CATH and INTERVENTION REPORT PATIENT NAME/: Bob Will, (1955) DATE OF SERVICE: 05/19/2018 PRIMARY ASSEMBLY MACHINE OPERATOR: Macho Arredondo MD MANAGED CARE NURSE: Khurram Canas MD PROCEDURES PERFORMED: Single-Vessel Coronary Intervention: - Intra-vascular ultrasound (IVUS) and angioplasty only to the LM into the osti al circumflex - Instantaneous Wave-Free Ratio (iFR) to the left anterior descending Left Heart Cath Right Heart Cath Impella Supported PCI INDICATIONS: Coronary artery disease and cardiomyopathy Brief Description of Procedure Written consent was obtained from the patient. Prior to the start of this procedure a 'amy e out' had been preformed and the patient had been prepped and draped in the usual sterile f ashion. Conscious sedation was used for this procedure. Using SonoSite guidance to visualiz e the vessel, the modified Seldinger technique was used and the sheath was placed in the fem oral artery, it was a 7 Fr. sheath on the left side. A 7 Fr venous sheath was also placed i n the left femoral vein and using a balloon tipped catheter a right heart cath was done with thermal outputs obtained (no Alessandro due to his O2 needs). All equipment was exchanged over a wire and carefully aspirated and flushed. For P2Y12 inhibition the patient was already on Plavix, so no bolus was given and heparin was administered for anticoagulation. A CLS 4.0 g uiding catheter was used for this procedure. A CLS 3.5 guider was also tried, but did not w ork well. First a FlowWire was placed in the left anterior descending and iFR was negative at 0.94. Then a BMW interventional wire was used to cross the lesion in the circumflex A n IVUS-guided intervention was performed in the standard fashion. Initially, a 2.5 regular balloon was used, then a 3.5 NC, then IVUS and finally a 3.75 NC. Each balloon inflation wa s done in the circumflex, hanging back into the left main. He became more hypotensive with each balloon inflation. At the conclusion an angiogram and follow-up IVUS showed a good res ult. The wire and guide were removed and the sheath was removed and hemostasis obtained wi th an Angio Seal. Impella: Indications - LM/circ stenosis with EF 25% and hypotension in a patient with acute on chron ic systolic heart failure Placement - using SonoSite and a micro cath a 14 [place] was eventually placed in the right femoral artery after 2 PerClose devices had been deployed. A pigtail was used to cross the aortic valve and left heart cath was done to assess LVEDP. The device was then placed in th e standard fashion and used for hemodynamic support throughout this intervention, therapeuti c ACT's were archived. The Impella was placed prior to the start of the intervention and pr ior to placing the guiding catheter. Removal - at the completion of the intervention, after the guide was removed, the Impella w as weaned down. It was then removed in standard fashion and the sheath removed and hemostas is archived with the 2 PerClose's. MODERATE SEDATION: I was present in the room when moderate sedation was initially administered to the patient at 1525 and continued until 1657. The trained nursing staff that monitored the patient and administered the medication, have been documented in the case log, please see that separate report for details. Also recorded in the case log are the total amounts and routes of the se dation medications used for this patient. The patient s vital signs, level of consciousne ss, neurological, cardiovascular, and pulmonary status at the conclusion of the procedure we re stable. Pre and post-sedation activities were reviewed by me. COMPLICATIONS: None Contrast: 55cc IVUS/FFR/iFR: iFR of the left anterior descending was 0.94 and IVUS of the circ and LM pos t angioplasty showed a good lumen area. CONCLUSIONS: 1. 95% stenosis of the ostial circumflex treated with angioplasty only with a 3.75 x 16 NC balloon with <10% residual stenosis. The balloon was 2. iFR of the LAD was negative at 0.94% PLAN: 1. In addition to secondary risk factor modification, Mr. Will will be advised to be o n aspirin indefinitely and dual anti-platelet therapy with a P2Y12 inhibitor for at least e next 3 months. 2. Continued diuretics for heart failure and med treat for his ischemic CMP 3. Repeat labs in AM to reassess his chronic renal failure Selected Labs: Recent Labs Lab 05/21/18 0303 05/20/18 0538 05/19/18 0452 05/15/18 0826 WBC 6.1 8.0 -- -- 9.6 HGB 13.0* 13.5 -- -- 13.8 HCT 38.0* 39.5 -- -- 40.5 PLT 135* 170 -- -- 185 NA 141 141 140 < > 138 K 4.5 4.6 4.4 < > 4.6 BUN 24 27* 28* < > 24 CREA 1.69* 1.75* 1.79* < > 1.79* GLU 102* 102* 116* < > 131* CALCIUM 8.7 8.5 8.2* < > 8.9 < > = values in this interval not displayed. Recent Labs Lab 05/21/18 0303 05/17/18 0348 BNP 260* 224* No results found for: CHOL, TRIG, HDL, LDL MEDS: Discharge Medications New Medications Details spironolactone 25 mg tablet Take 0.5 tablets by mouth Daily. aka: ALDACTONE Changed Medications Details HYDROcodone-acetaminophen 5-325 mg per tablet Take 1-2 tablets by mouth every 4 hours as needed for Pain (Pain). What changed: how much to take aka: NORCO HYDROcodone-acetaminophen 5-325 mg per tablet Take 2 tablets by mouth every 4 hours as needed for Pain (Pain). What changed: You were already taking a medication with the same name, and this prescripti on was added. Make sure you understand how and when to take each. aka: NORCO metoprolol succinate 25 mg 24 hr tablet 1 tablet in the am, 2 tablets in the PM. What changed: What Changed: Instructions aka: TOPROL-XL pantoprazole 40 mg tablet Take 1 tablet by mouth every morning (before breakfast). What changed: What Changed: Instructions Another medication with the same name was removed. Continue taking this medication, and follow the directions you see here. aka: PROTONIX Unchanged Medications Details aspirin 81 MG tablet Take 81 mg by mouth Daily. atorvaSTATin 80 MG tablet TAKE ONE TABLET BY MOUTH EVERY DAY IN THE EVENING aka: LIPITOR Cholecalciferol 34618 units Caps Take by mouth Once a week. aka: VITAMIN D-3 clopidogrel 75 mg tablet Take 1 tablet by mouth Daily. aka: PLAVIX gabapentin 300 mg capsule Take 300 mg by mouth 3 times daily. aka: NEURONTIN metFORMIN 500 mg tablet Take 500 mg by mouth 2 times daily (with breakfast & dinner). aka: GLUCOPHAGE nitroglycerin 0.[address] 1 tablet under the tongue every 5 minutes as needed for Chest pain. aka: NITROSTAT sacubitril-valsartan 49-51 mg per tablet Take 1 tablet by mouth 2 times daily. aka: ENTRESTO traMADol 50 mg tablet Take 50 mg by mouth every 6 hours as needed. aka: ULTRAM Discontinued Medications furosemide 20 mg tablet aka: LASIX raNITIdine 300 MG capsule aka: ZANTAC PATIENT INSTRUCTIONS: Discharge Instructions 1. Discharge medications per discharge summary. A. You will be on aspirin indefinitely 81 mg. B. You will be on Plavix 75 mg daily, or at least 1 year. Do not stop without speaking wit h cardiology, as that could cause her stents to close. 2. Cardiac diet: Low fat/low sodium. 3. Increase activity as tolerated. No strenuous activity. 4. Referral for cardiac rehab placed. 5. Daily weight: Please call for an increase of 3 pounds overnight, or 3 or more pounds i n 3 days. 6. 2 g sodium restriction. 7. 2 L fluid restriction. Low-Salt Diet (2 Grams/Day) This diet eliminates foods that are high in salt and restricts the amount of salt that you cook with. It is most often used for patients with high blood pressure, edema (fluid retenti on), kidney, liver, and heart disease. Table salt contains the mineral sodium. The body needs sodium to work normally. But too muc h sodium can make your health problems worse. Your health care provider is recommending a lo w-salt (also called low-sodium) diet for you. Your total daily allowance of salt (sodium) is 2 grams. This equals 2,000 milligrams (mg). It is less than 1 teaspoon of table salt. This means you can have only about 700 mg of sodium at each meal. When you cook, limit the salt you use. And if you can avoid using salt, even better. Do not add salt at the table. So, throw away the saltshaker! When shopping, read the package labels. Salt is often called sodium on the label. Cho ose foods that are salt-free, low salt, or very low salt. Note that foods with reduced salt or reduced sodium may notlower your salt intake enough. Beverages Ok: Tea, coffee, carbonated beverages, juices Avoid: Flavored international coffees, electrolyte replacement drinks, sports beverages Bread and cereals Ok: Low sodium bread and rolls, cereals, cakes; low-salt crackers, matzo crackers Avoid: Salted crackers, pretzels, popcorn; uzbek toast, pancakes, muffins Desserts Ok: Ice cream, frozen yogurt, juice bars, gelatin, cookies and pies, sugar, honey, jelly, h kimberlee candy Avoid: Most pies, cakes and cookies prepared or processed with salt, instant pudding Meats Ok: All fresh meat, fish, poultry, low-salt tuna, eggs, egg substitute Avoid: Smoked, pickled, brine-cured, or salted meats and fish. Thisincludes collier, chippe d beef, corned beef, hot dogs, luncheon meats, ham, kosher meats, salt pork, sausage, canned tuna, salted codfish, smokedsalmon, yun, sardines, or anchovies. Dairy Ok: Milk, chocolate milk, hot chocolate mix, low-salt cheeses, and yogurt Avoid: Processed cheese, cheese spreads, Roquefort, Camembert, and cottage cheese, buttermi lk, instant breakfast drink Beans, potatoes, and pasta Ok: Dry beans, split peas, lentils, potatoes, rice, macaroni, pasta, spaghetti without adde d salt Avoid: Potato chips, tortilla chips, and similar products Soups Ok: Low-salt soups and broths made with allowed foods Avoid: Bouillon cubes, soups with smoked or salted meats, regular soup and broth Vegetables Ok: Most are okay; low-salt tomato and vegetable juices Avoid: Sauerkraut and other brine-soaked vegetables, pickles and other pickled vegetables, tomato juice, olives Seasoning and spices Ok: Most seasonings are okay. Good substitutes for salt include: fresh herb blends, hot anu ce, lemon, garlic, douglas, vinegar, dry mustard, parsley, cilantro, horseradish, tomato paste , regular margarine, mayonnaise, butter, cream cheese, vegetable oil, cream, low-salt salad dressing and gravy Avoid: Regular ketchup, relishes, pickles, soy sauce, teriyaki sauce, Worcestershire sauce, BBQ sauce, tartar sauce, meat tenderizer, chili sauce, regular gravy, regular salad dressin g [id number] [employer]. [address] [place] [address], [place] [address]. All righ ts reserved. This information is not intended as a substitute for professional medical care. Always follow your healthcare professional's instructions. Instructions: Limiting Fluids Your doctor has prescribed fluid restriction for you. This means you need to limit the amou nt of fluids that you drink. If your kidneys are healthy, theybalance the amount of fluid that enters and leaves your body. If your body cannot maintain this fluid balance because of illness or injury, you may need to limit the amount you drink. This sheet can help you take in the right amount of fluid each day. Measuring fluids Drink the amount of fluid recommended by your doctor. Don t drink more or less. Write down the liquid limits your doctor recommended. Amounts are usually given in a cer tain number of ml or cc (these two units are equivalent). Here are some measurements to help you: 1 cup = 8 oz = 240 cc = 240 ml 4 cups = 32 oz = 1,000 ml (or cc) = 1 liter 6 cups = 50 oz = 1,500 ml (or cc) = 1.5 liters 8-1/3 cups = 67 oz = 2,000 ml (or cc) = 2 liters 1 can of soda = 1 cups = 12 oz = 360 ml (or cc) 2 cups = 500 ml (or cc) Measure the amount of water you will drink during the day and put it in a container. Dri nk water from that container only. Limiting fluids Drink only when you are thirsty. Try the following tips to help you feel less thirsty: Rinse your mouth with water; don t swallow. Rinse your mouth with cool mouthwash. Chew sugar-free gum or hard candy. Suck on a few ice chips. Try sucking on a lemon wedge to moisten your mouth. Freeze grapes, berries, or small bits of fruit and let them thaw slowly in your mouth. Drink from a cup or a small glass. Divide your fluids up during the day; divide them between meals and snacks. Take your medicine with your liquids at meal time. Eat only a limited amount of the following liquid foods": soups, frozen juice bars, g ravy, ices, sauces, milk shakes, pudding, sherbet, custard, ice cream, ice cubes, or any oth er food that becomes liquid when it stays at room temperature. Avoid salty foods. Remember, some foods may not taste salty but may still contain a high amount of salt (also called sodium). Read food labels to find the amount of sodium. A food is low sodium if it contains 140 mg or less of sodium per serving. If you have diabetes, control your blood sugar level to help control your thirst. Follow-up Make a follow-up appointment as directed by our staff. When to call your doctor Call your doctor right away if you have any of the following: Dizziness and lightheadedness Fainting Chest pain Shortness of breath Weight gain of more than 2 pounds in 24 hours or more than 5 pounds in 1 week Swelling in the hands, feet, or ankles Confusion [phone] [employer]. [address] [place] [address], [place] [address]. All righ ts reserved. This information is not intended as a substitute for professional medical care. Always follow your healthcare professional's instructions. Discharge References/Attachments Heart Failure, Discharge Instructions for (Bulgarian) ADARSH Stevens [address] [facility] [id number] On 05/26/2018 check in at 230pm. This BATCH TESTER works with Dr. Kay. Time spent on discharge planning: less than 30 minutes Thank you for allowing [facility] to be involved in the care of this patient. Please call with any questions . Patient Care Team: Jeet King MD as PCP - General (Family Medicine) Randy Figueroa MD as Physician (Cardiology) ADARSH Stevens as Nurse Practitioner (Nurse Practitioner) Associated attestation - Macho Arredondo MD - 05/28/2018 11:33 PM PDTFormatting of this no te might be different from the original. PHYSICIAN ADDENDUM I reviewed May 21, 2018 discharge note by ADARSH Lomas. Patient was seen and e xamined by me prior to discharge and I was in direct [id number] conversation with this pat ient on several occasions prior to his discharge that day regarding his follow-up in [facility]. EXAM: Cardiovascular - RRR, no murmur heard Respiratory - CTA bilaterally Lymphatic/Extremities - no significant edema Sheath site - no hematoma IMP/PLAN: Complicated 62-year-old male with ischemic cardiomyopathy transferred from [facility] where he had presented with acute heart failure, angiogram demonstrated high-grade 95% ostialcircumflex stenosis, patent RCA,patent left main and LAD. He was transferred to [facility] for consideration of high-risk revascularization. He was discussed at cardiology c onference where the consensus opinion was that surgery would not be of benefit given lack of viability in anterior wall, lack of significant stenosis in the left main, LAD,and RCA .Rose farnsworth, underwent PCI and balloon dilation of his ostial circumflex which had been previous ly stented. Because of his severe ischemic cardiomyopathy this procedure was performed using Impella device for temporary left ventricle support. The procedure was uneventful and he felt better within 24 hours. He was resumed on his medi cations for cardiomyopathy. At discharge, it was discovered that his insurance would not cov er any follow-up at [place] or with [facility] and is referred back to his robotic weld technician in [place] which is Dr. Kay. He did see 's nurse practitioner five days after discharge. Over 60 minutes spent in coordinating his discharge and arranging his discharge follow-up. documented in this encounter Discharge Instructions Instructions Janel Hester, ADARSH - 05/17/2018Formatting of this note might be diffe rent from the original. 1. Discharge medications per discharge summary. A. You will be on aspirin indefinitely 81 mg. B. You will be on Plavix 75 mg daily, or at least 1 year. Do not stop without speaking wit h cardiology, as that could cause her stents to close. 2. Cardiac diet: Low fat/low sodium. 3. Increase activity as tolerated. No strenuous activity. 4. Referral for cardiac rehab placed. 5. Daily weight: Please call for an increase of 3 pounds overnight, or 3 or more pounds i n 3 days. 6. 2 g sodium restriction. 7. 2 L fluid restriction. Low-Salt Diet (2 Grams/Day) This diet eliminates foods that are high in salt and restricts the amount of salt that you cook with. It is most often used for patients with high blood pressure, edema (fluid retenti on), kidney, liver, and heart disease. Table salt contains the mineral sodium. The body needs sodium to work normally. But too muc h sodium can make your health problems worse. Your health care provider is recommending a lo w-salt (also called low-sodium) diet for you. Your total daily allowance of salt (sodium) is 2 grams. This equals 2,000 milligrams (mg). It is less than 1 teaspoon of table salt. This means you can have only about 700 mg of sodium at each meal. When you cook, limit the salt you use. And if you can avoid using salt, even better. Do not add salt at the table. So, throw away the saltshaker! When shopping, read the package labels. Salt is often called sodium on the label. Cho ose foods that are salt-free, low salt, or very low salt. Note that foods with reduced salt or reduced sodium may notlower your salt intake enough. Beverages Ok: Tea, coffee, carbonated beverages, juices Avoid: Flavored international coffees, electrolyte replacement drinks, sports beverages Bread and cereals Ok: Low sodium bread and rolls, cereals, cakes; low-salt crackers, matzo crackers Avoid: Salted crackers, pretzels, popcorn; uzbek toast, pancakes, muffins Desserts Ok: Ice cream, frozen yogurt, juice bars, gelatin, cookies and pies, sugar, honey, jelly, h kimberlee candy Avoid: Most pies, cakes and cookies prepared or processed with salt, instant pudding Meats Ok: All fresh meat, fish, poultry, low-salt tuna, eggs, egg substitute Avoid: Smoked, pickled, brine-cured, or salted meats and fish. Thisincludes colleir, chippe d beef, corned beef, hot dogs, luncheon meats, ham, kosher meats, salt pork, sausage, canned tuna, salted codfish, smokedsalmon, yun, sardines, or anchovies. Dairy Ok: Milk, chocolate milk, hot chocolate mix, low-salt cheeses, and yogurt Avoid: Processed cheese, cheese spreads, Roquefort, Camembert, and cottage cheese, buttermi lk, instant breakfast drink Beans, potatoes, and pasta Ok: Dry beans, split peas, lentils, potatoes, rice, macaroni, pasta, spaghetti without adde d salt Avoid: Potato chips, tortilla chips, and similar products Soups Ok: Low-salt soups and broths made with allowed foods Avoid: Bouillon cubes, soups with smoked or salted meats, regular soup and broth Vegetables Ok: Most are okay; low-salt tomato and vegetable juices Avoid: Sauerkraut and other brine-soaked vegetables, pickles and other pickled vegetables, tomato juice, olives Seasoning and spices Ok: Most seasonings are okay. Good substitutes for salt include: fresh herb blends, hot anu ce, lemon, garlic, douglas, vinegar, dry mustard, parsley, cilantro, horseradish, tomato paste , regular margarine, mayonnaise, butter, cream cheese, vegetable oil, cream, low-salt salad dressing and gravy Avoid: Regular ketchup, relishes, pickles, soy sauce, teriyaki sauce, Worcestershire sauce, BBQ sauce, tartar sauce, meat tenderizer, chili sauce, regular gravy, regular salad dressin g [id number] [employer]. [address] [place] [address]. All righ ts reserved. This information is not intended as a substitute for professional medical care. Always follow your healthcare professional's instructions. Instructions: Limiting Fluids Your doctor has prescribed fluid restriction for you. This means you need to limit the amou nt of fluids that you drink. If your kidneys are healthy, theybalance the amount of fluid that enters and leaves your body. If your body cannot maintain this fluid balance because of illness or injury, you may need to limit the amount you drink. This sheet can help you take in the right amount of fluid each day. Measuring fluids Drink the amount of fluid recommended by your doctor. Don t drink more or less. Write down the liquid limits your doctor recommended. Amounts are usually given in a cer tain number of ml or cc (these two units are equivalent). Here are some measurements to help you: 1 cup = 8 oz = 240 cc = 240 ml 4 cups = 32 oz = 1,000 ml (or cc) = 1 liter 6 cups = 50 oz = 1,500 ml (or cc) = 1.5 liters 8-1/3 cups = 67 oz = 2,000 ml (or cc) = 2 liters 1 can of soda = 1 cups = 12 oz = 360 ml (or cc) 2 cups = 500 ml (or cc) Measure the amount of water you will drink during the day and put it in a container. Dri nk water from that container only. Limiting fluids Drink only when you are thirsty. Try the following tips to help you feel less thirsty: Rinse your mouth with water; don t swallow. Rinse your mouth with cool mouthwash. Chew sugar-free gum or hard candy. Suck on a few ice chips. Try sucking on a lemon wedge to moisten your mouth. Freeze grapes, berries, or small bits of fruit and let them thaw slowly in your mouth. Drink from a cup or a small glass. Divide your fluids up during the day; divide them between meals and snacks. Take your medicine with your liquids at meal time. Eat only a limited amount of the following liquid foods": soups, frozen juice bars, g ravy, ices, sauces, milk shakes, pudding, sherbet, custard, ice cream, ice cubes, or any oth er food that becomes liquid when it stays at room temperature. Avoid salty foods. Remember, some foods may not taste salty but may still contain a high amount of salt (also called sodium). Read food labels to find the amount of sodium. A food is low sodium if it contains 140 mg or less of sodium per serving. If you have diabetes, control your blood sugar level to help control your thirst. Follow-up Make a follow-up appointment as directed by our staff. When to call your doctor Call your doctor right away if you have any of the following: Dizziness and lightheadedness Fainting Chest pain Shortness of breath Weight gain of more than 2 pounds in 24 hours or more than 5 pounds in 1 week Swelling in the hands, feet, or ankles Confusion [id number] [employer]. [address] [place] [address], [place] [address]. All righ ts reserved. This information is not intended as a substitute for professional medical care. Always follow your healthcare professional's instructions. AttachmentsThe following attachments cannot be sent through Care Everywhere.Heart Failure, Discharge Instructions for (Bulgarian)documented in this encounter Medications at Time of [...] 0 | | | | (VITAMIN D-3) 84466 | mouth Once a week. | | [...] tablet by | 30 | 11 | 05/21/20 | | | (PLAVIX) 75 mg | [...] + +---------+ + + | | Take 2 tablets by | 20 | 0 | 05/21/20 | | | HYDROcodone-acetamin | mouth every 4 hours | tablet | | 18 | 8 [...] + +---------+ + + | metoprolol | 1 tablet in the am, | 90 | 11 | 05/21/20 | | | succinate | 2 tablets in the PM. | tablet | | 18 | 8 | | (TOPROL-XL) 25 mg 24 | | | | | | | hr tablet | | | | | | + + + +---------+ + + | pantoprazole | Take 1 tablet by | 30 | 5 | 05/22/20 | | | (PROTONIX) 40 mg | mouth every morning | tablet | | 18 | 8 | | tablet | (before breakfast). | [...] tablet by | 60 | 5 | 04/09/20 | | | sacubitril-valsartan | mouth 2 times daily. | tablet | | 18 | 8 | | (ENTRESTO) 49-51 mg | | | | | | | per tablet | | | | | | + + + +---------+ + + | spironolactone | Take 0.5 tablets by | 30 | 5 | 05/21/20 | | | (ALDACTONE) 25 mg | mouth Daily. | tablet | | 18 | 8 | | tablet | | | | | | + + + +---------+ + + documented as of this encounter Progress Notes Akua Winchester RN - 05/21/2018 10:49 AM PDTPt adequate for discharge, IV removed, AVS reviewed with pt, medications will be picked up on the way out with transport. Electronical ly signed by Akua Dai RN at 05/21/2018 10:51 AM Macho Delatorre MD - 05/20/20 18 11:10 PM PDT CARDIOLOGY DAILY PROGRESS NOTE Seen by Macho Arredondo MD on 05/20/2018 (Hospital Day: 8) PATIENT NAME: Bob Will DATE OF : 1955 MED RECORD: [id number] SUBJECTIVE Mr. John was seen today regarding his coronary artery disease and ischemic cardiomyo ginny Status post successful PCI of circumflex yesterday, patient notes noticeable improvement wi thin a few hours, was symptoms of orthopnea. Right atrial pressure was only 4 mmHg on right heart catheterization yesterday. OBJECTIVE Vitals: Temp: 35.7 C (96.2 F) BP: 113/65 Pulse: 71 Resp: 16 SpO2: 95 % Weight: Today's Weight: 95.6 kg (210 lb 12.8 oz) Admit Weight: 94.6 kg (208 lb 8.9 oz) 24 hour I/O: REVIEW OF SYSTEMS: Intake/Output Summary (Last 24 hours) at 05/20/18 2310 Last data filed at 05/20/18 2200 Gross per 24 hour Intake 822 ml Output 2000 ml Net -1178 ml Consitutional - fatigue is better HEENT - No blurred or double vision Respiratory - No cough or shortness of breath GI - No nausea or vomiting Musculoskeletal - No back pain or muscle weakness EXAM: Constitutional - Alert and oriented, in no distress HEENT - Cornea, conjunctivae and sclerae normal Cardiovascular - Regular rate and rhythm, no murmur Respiratory - Clear to auscultation bilaterally GI - Soft, non tender Extremities - No significant edema Neurologic - No focal deficits Sheath site - no hematoma MEDICATIONS: SCHEDULED: aspirin 81 mg Oral Daily atorvaSTATin 80 mg Oral Nightly cholecalciferol 1,000 Units Oral Daily clopidogrel 75 mg Oral Daily gabapentin 300 mg Oral TID heparin 5,000 Units Subcutaneous 2 times per day metoprolol succinate 25 mg Oral BID pantoprazole 40 mg Oral QAM AC sacubitril-valsartan 1 tablet Oral BID spironolactone 12.5 mg Oral Daily IV: PRN: aluminum & magnesium hydroxide-simethicone, HYDROcodone-acetaminophen, melatonin, nitroglyc russ, ondansetron, oxyCODONE, traMADol LAB: Recent Labs Lab 05/20/18 0538 05/15/18 0826 WBC 8.0 9.6 HGB 13.5 13.8 HCT 39.5 40.5 MCV 91.9 92.4 PLT 170 185 Recent Labs Lab 05/20/18 0538 05/19/18 0452 05/17/18 0348 NA 141 140 142 K 4.6 4.4 4.6 BUN 27* 28* 27* CREA 1.75* 1.79* 1.89* EGFR 41* 39* 37* CALCIUM 8.5 8.2* 8.7 GLU 102* 116* 103* Recent Labs Lab 05/17/18 0348 BNP 224* No results found for: CHOL, TRIG, HDL, LDL No results for input(s): PHART, PO2ART, RFU1QIM, R9SRVVQH, BEART in the last 168 hours. DIAGNOSTIC STUDIES: Available data and images were reviewed personally. Significant results and findings are a ddressed here or in the Assessment and Plan. residential monitor shows: Sinus rhythm with no significant arrhythmia. ASSESSMENT/PLAN Patient Active Hospital Problem List: Acute on chronic systolic congestive heart failure (10/17/2017) POA: Yes Assessment: symptomatically improved post PCI. Diuretics held today for low filling press ure Plan: advance his medications for cardiomyopathy as tolerated Coronary artery disease involving cantwell coronary artery of cantwell heart without angina pe ctoris (04/06/2017) POA: Yes Assessment: as described, lew post successful PCI Plan: on aspirin and Plavix Ischemic cardiomyopathy (05/26/2017) POA: Yes Assessment: continue current medical management will add spironolactone Plan: as above Please call with any questions [facility] Carli León MD - 05/20/2018 8:49 PM PDT PATIENT NAME: Bob Will : 1955: AGE: 62 y.o. PRIMARY CARE: Jeet King MD REFERRING: Dr Canas, Dr Arredondo, Dr Cassandra Meade MD [facility] Inpatient HF consult Date of Service: 05/20/2018 IMPRESSION & PLAN In brief, this 62y old male with remote tobacco use, pre-DM, HTN, ischemic CMY, HFREF (AHA stage C, NYHA III), and MVCAD w/prior STEMI c/b VF arrest and cardiogenic shock [facility] and despite excellent diuresis, had ongoing PND and WEI consistent with a nginal equivalent symptoms which have improved already with POBA to LM-LCX yesterday. Unfort unately, he still has a high burden on likely nonviable myocardium and remains at high risk for progressing to Stage D HF if he does not improve with GDMT and revascularization. We haider l see him in follow up in the Adv HF clinic as he may need expedited eval for adv therapies such as VAD and/or transplant.. In summary, we suggest: 1. We will arrange follow up in 7-14 days from discharge in our Adv Heart Disease clinic 2. Continue current guideline directed medical therapy with metoprolol succinate, spironola ctone, and entresto, increasing as tolerated 3. Suggest aiming for even fluid balance by increasing Spironolactone 25mg in lieu of addin g daily loop diuretic It was a pleasure to see Mr Will in follow up at the request of Danny Canas, Arnulfo and Cassandra. My impressions and recommendations have been discussed with the patient today. The advanced heart failure service will continue to follow along. Should you have any questions or concerns, please call [phone]. Carli Meade MD [facility] SUBJECTIVE Feeling better today after a night of uninterupted sleep without PND. Not using oxygen at n ight either. Walking the same speed to avoid groin strain given b/l cath access yesterday. N o hematoma or distal limb sensation changes, cool extremities etc. Pertinent positive ROS: sore groin, improved work of breathing, less WEI Pertinent negative ROS: no PND, no orthopnea, no fevers, no chills, no rashes, no orthopnea , no edema, no chest pain, no chest pressure, no palpitations, no bloating Rest of 12 point review of systems negative OBJECTIVE: 24 Hr events: recovering well post balloon intervention to LM-LCX with negative FFR of LAD and RHC w/borderline cardiac output and low normal right sided pressures (elevated LVEDP) No Known Allergies aspirin 81 mg Oral Daily atorvaSTATin 80 mg Oral Nightly cholecalciferol 1,000 Units Oral Daily clopidogrel 75 mg Oral Daily gabapentin 300 mg Oral TID heparin 5,000 Units Subcutaneous 2 times per day metoprolol succinate 25 mg Oral BID pantoprazole 40 mg Oral QAM AC sacubitril-valsartan 1 tablet Oral BID spironolactone 12.5 mg Oral Daily PHYSICAL EXAM Tele: SR, no ectopy [place]: n/a BP 116/68 | Pulse 66 | Temp 35.9 C (96.6 F) (Temporal) | Resp 16 | Ht 1.753 m (5' 9 ") | Wt 95.6 kg (210 lb 12.8 oz) | SpO2 97% | BMI 31.13 kg/m Body mass index is 31.13 kg/m. GEN: Well developed well nourished male appearing his stated age in no distress at rest in bed or walking slowly FLORES: Alert and oriented to person, place, time and event; cranial nerve exam normal, moves all limbs normally HEENT: Atraumatic, normocephalic, sclera and conjunctiva clear, sinuses nontender, nares pa tent, oropharynx clear, mucous membranes moist NECK: soft, supple, normal ROM, no masses or LAD CHEST: normal work of breathing at rest and w/conversation, LSCTA throughout, sternum intac t w/o shift or click CARD: JVP <5cm, neg HJR, heart RRR, normal S1S2, no S3 or S4, no murmurs, no rubs, no sheffield ps, no RVH heave, PMI midclav VASC: radial 2+ b/l, upper extremities wwp, lower extremities wwp, b/l femoral bruits with 1+ pulses but no hematoms ABD: soft nontender nondistended abdomen, normal active bowel sounds, no guarding or rigidi ty, no appreciable hepatic or splenomegaly DERM: warm dry skin MSK: grossly normal muscle bulk, tone, range of motion and strength in all four extremities PSY: normal affect, good eye contact, appropriate questions and responses Pertinent Tests: ECG 01/13/18: NSR, atrial sensed v-paced TTE 04/02/18: 1. Mild biatrial dilatation. 2. Mild left ventricular dilatation with mild eccentric LVH. There is a segmental wall mot ion abnormality with severe hypokinesis of the entire anterior and anteroseptal region. Overall, left ventricular systolic function is moderately decreased. LVEF is 30-35%. 3. Grade 1 LV diastolic dysfunction. 4. Mild mitral valve regurgitation. 5. Normal right-sided pressure. 6. Normal IVC with normal respiratory collapse. 7. When compared to echocardiogram on 11/25/17, left ventricular systolic function continued to deteriorate PFTs 05/18/18 FVC 94% FEV1 83% ratio 87% total lung capacity 107% vital capacity 96% DLCO 85% Recent Results (from the past 24 hour(s)) Basic Metabolic Panel Result Value Ref Range NA 141 135 - 145 mmol/L K 4.6 3.5 - 5.0 mmol/L CL 107 99 - 109 mmol/L CO2 27 21 - 28 mmol/L ANION GAP 7 5 - 16 mmol/L CALCIUM 8.5 8.5 - 10.2 mg/dL BUN 27 (H) 8 - 25 mg/dL Creatinine, Serum/Plasma 1.75 (H) 0.70 - 1.30 mg/dL GLUCOSE 102 (H) 65 - 99 mg/dL Estimated GFR 41 (L) >=90 mL/min/1.73m2 CBC no Differential Result Value Ref Range WBC 8.0 3.8 - 11.0 K/uL RBC 4.30 4.20 - 5.70 M/uL Hgb 13.5 13.2 - 17.0 g/dL Hct 39.5 39.0 - 50.0 % MCV 91.9 80.0 - 100.0 fL MCH 31.5 27.0 - 34.0 pg MCHC 34.3 32.0 - 35.5 g/dL RDW-CV 14.4 11.0 - 15.5 % Platelet Count 170 150 - 400 K/uL MPV 8.7 7.5 - 11.2 fL Lab Results Component Value Date WBC 8.0 05/20/2018 HGB 13.5 05/20/2018 PLT 170 05/20/2018 ALT 57 05/14/2018 AST 29 05/14/2018 NA 141 05/20/2018 K 4.6 05/20/2018 CREA 1.75 (H) 05/20/2018 BUN 27 (H) 05/20/2018 INR 1.10 10/03/2017 As part of my care, I reviewed the past 24hrs notes, vitals, labs and diagnostic studies. I have also reviewed the allergies, medications and orders. All of the patient's concerns and questions were addressed to their apparent satisfaction. This note was dictated using voice recognition software. If you or the patient have any que stions, please do not hesitate to contact me. Signed by: Carli Meade MD [facility] 05/20/2018, 20:49 Devon Ruffin MD - 05/20/2018 7:42 AM PDTAfter discussion at heart team meeting, decision m betty to proceed with PCI of ostial Circ restenosis. This was done yesterday by Dr. Canas with good result. Plan will be to see how much improvement this gives for LV function and CHF. Depending on how he does he may need to proceed toward Transplant +/- VAD. I would recommend that he f/u with Heart Failure Team so he doesn't get "lost" down in [facility]. No plan for surgical intervention (other than potential LVAD) so I will sign off. Electronically signed by: Devon Trujillo M.D. [facility] 05/20/2018, 7:42 Carli León MD - 05/19/2018 8:55 AM PDT PATIENT NAME: Bob Will : 1955: AGE: 62 y.o. PRIMARY CARE: Jeet King MD REFERRING: Dr Canas, Dr Arredondo, Dr Cassandra Meade MD [facility] Inpatient HF consult Date of Service: 05/19/2018 IMPRESSION & PLAN It was a pleasure to see Mr Will in follow up at the request of Dr Canas. He is a pleas ant 62 year old male with remote tobacco use, diabetes mellitus (borderline), HTN and severe multivessel CAD with history of STEMI, VF arrest, cardiogenic shock and ongoing stage C HFR EF due to ischemic CMY. He was initially admitted to [facility] for ADHF and appropriately diure sed. Due to concerns for ongoing ischemia and anginal equivalent dyspnea, he underwent viabi lity testing and anatomy assessment. We discussed his case today at the multidisciplinary co mplex cardiac case conference and agreed that an attempt at revascularization to the LCX, id eally with POBA and not a third stent would be the best thearpy. We will see him in follow u p in the Adv HF clinic as he may need expedited eval for adv therapies such as VAD and/or tr ansplant.. In summary, we suggest: 1. Agree with attempted percutaneous revascularization 2. Titrate diuretics to maintain even fluid balance, would favor higher dose spironolactone over standing loop diuretics 3. Continue current guideline directed medical therapy with metoprolol succinate, spironola ctone, and entresto, increasing as tolerated 4. We will arrange for outpatient heart failure follow up in the Advanced Cardiac Disease & Transplant Clinic It was a pleasure to see Bob Sims Mike at the request of Dr Canas. Thank you for all owing us to participate in this patient's care. My impressions and recommendations have bee n discussed with Dr Canas. The advanced heart failure service will continue to follow along. Should you have any questions or concerns, please call [phone]. Carli Meade MD [facility] [place] SUBJECTIVE Good mood, happy to hear conference recommendation was to attempt PCI Hopes to not have to have transplant or VAD eval in the future but will pursue if HF sympto ms or angina recur or worsen Pertinent positive ROS: occ PND Pertinent negative ROS: no fevers, no chills, no rashes, no orthopnea, no edema, no chest p ain, no chest pressure, no palpitations, no bloating Rest of 12 point review of systems negative OBJECTIVE: 24 Hr events: case reviewed at multi-disciplinary cardiac case conf, walking halls with no SOB if goes slowly No Known Allergies aspirin 81 mg Oral Daily atorvaSTATin 80 mg Oral Nightly cholecalciferol 1,000 Units Oral Daily clopidogrel 75 mg Oral Daily furosemide 40 mg Oral Daily gabapentin 300 mg Oral TID heparin 5,000 Units Subcutaneous 2 times per day HYDROcodone-acetaminophen metoprolol succinate 25 mg Oral BID pantoprazole 40 mg Oral QAM AC sacubitril-valsartan 1 tablet Oral BID spironolactone 12.5 mg Oral Daily sodium chloride 0.45% 1,000 mL (05/18/182156) PHYSICAL EXAM Tele: SR, no ectopy [place]: n/a BP 103/54 | Pulse 76 | Temp 36.3 C (97.4 F) (Temporal) | Resp 18 | Ht 1.753 m (5' 9 ") | Wt 95.2 kg (209 lb 14.1 oz) | SpO2 92% | BMI 30.99 kg/m Body mass index is 30.99 kg/m. GEN: Well developed well nourished appearing stated age. No apparent distress HEENT: Atraumatic normocephalic head. DEMIAN, sclera clear; sinuses nontender to light palp ation; oropharynx and conjunctivae are clear. Mucous membranes moist. NECK: Soft supple neck, no masses or submandibular or cervical lymphadenopathy. BACK: No spinal or paraspinal tenderness, no flank pain PULM: LSCTA. Good inspiratory effort with no crackles or wheezes. CARD: JVP <7, neg HJR. No parasternal lift. PMI is focal and non-displaced. Normal S1 and S2. Regular. No murmurs, rubs or gallops. ABD: Soft, non-tender, nondistended abdomen with normal bowel sounds. Normal abdominal pul sation without bruit. EXT: No edema or cyanosis. VASC :Carotids are 2+ and brisk bilaterally without bruits. Radial pulses 2+ and symmetric. Distal pulses intact. FLORES: Alert and oriented to person, place, time, and event. Grossly nonfocal cranial nerve exam. SKIN: No rashes or skin breakdown. MSK: normal ambulation and range of motion in all extremities PSY: Normal mood and affect, reasonable insight and judgment demonstrated during visit, goo d eye contact Pertinent Tests: ECG 01/13/18: NSR, atrial sensed v-paced TTE 04/02/18: 1. Mild biatrial dilatation. 2. Mild left ventricular dilatation with mild eccentric LVH. There is a segmental wall mot ion abnormality with severe hypokinesis of the entire anterior and anteroseptal region. Overall, left ventricular systolic function is moderately decreased. LVEF is 30-35%. 3. Grade 1 LV diastolic dysfunction. 4. Mild mitral valve regurgitation. 5. Normal right-sided pressure. 6. Normal IVC with normal respiratory collapse. 7. When compared to echocardiogram on 11/25/17, left ventricular systolic function continued to deteriorate PFTs 05/18/18 FVC 94% FEV1 83% ratio 87% total lung capacity 107% vital capacity 96% DLCO 85% Recent Results (from the past 24 hour(s)) Basic Metabolic Panel Result Value Ref Range NA 140 135 - 145 mmol/L K 4.4 3.5 - 5.0 mmol/L CL 105 99 - 109 mmol/L CO2 26 21 - 28 mmol/L ANION GAP 9 5 - 16 mmol/L CALCIUM 8.2 (L) 8.5 - 10.2 mg/dL BUN 28 (H) 8 - 25 mg/dL Creatinine, Serum/Plasma 1.79 (H) 0.70 - 1.30 mg/dL GLUCOSE 116 (H) 65 - 99 mg/dL Estimated GFR 39 (L) >=90 mL/min/1.73m2 POCT activated clotting time Result Value Ref Range Activated Clotting time, POC 305 (A) 105 - 167 sec Result Verified By: POCT activated clotting time Result Value Ref Range Activated Clotting time, POC 382 (A) 105 - 167 sec Result Verified By: POCT activated clotting time Result Value Ref Range Activated Clotting time, POC 400 (A) 105 - 167 sec Result Verified By: CV Cardiac Procedure Result Value Ref Range LVEF-LVGRAM CARDIAC CATH 25 % Lab Results Component Value Date WBC 9.6 05/15/2018 HGB 13.8 05/15/2018 PLT 185 05/15/2018 ALT 57 05/14/2018 AST 29 05/14/2018 NA 140 05/19/2018 K 4.4 05/19/2018 CREA 1.79 (H) 05/19/2018 BUN 28 (H) 05/19/2018 INR 1.10 10/03/2017 As part of my care, I reviewed the past 24hrs notes, vitals, labs and diagnostic studies. I have also reviewed the allergies, medications and orders. All of the patient's concerns and questions were addressed to their apparent satisfaction. This note was dictated using voice recognition software. If you or the patient have any que stions, please do not hesitate to contact me. Signed by: Carli Meade MD MPH FACC 05/19/2018, 20:53 ve Macho szymanski MD - 05/19/2018 8:26 AM PDTFormatting of this note might be different from e original. CARDIOLOGY DAILY PROGRESS NOTE Seen by Macho Arredondo MD on 05/19/2018 (Hospital Day: 7) PATIENT NAME: Bob Will DATE OF : 1955 MED RECORD: [id number] SUBJECTIVE Mr. Will's was seen today regarding his Heart failure, ischemic cardio myopathy. No change in symptoms, no chest pain, no dyspnea on exertion, does have some orthopnea whic h could be sleep apnea. Discussed today at cardiology conference. Agreement was that the b est revascularization discharge he would be PCI to circumflex which probably a temporizing m easure towards looking for transplant or a mechanical heart in the future. OBJECTIVE Vitals: Temp: 36.3 C (97.3 F) BP: 109/49 Pulse: 65 Resp: 18 SpO2: 98 % Weight: Today's Weight: 95.2 kg (209 lb 14.1 oz) Admit Weight: 94.6 kg (208 lb 8.9 oz) 24 hour I/O: REVIEW OF SYSTEMS: Intake/Output Summary (Last 24 hours) at 05/19/18 0825 Last data filed at 05/19/18 0643 Gross per 24 hour Intake 460 ml Output 1393 ml Net -933 ml Consitutional - No fatigue, fevers or chills HEENT - No blurred or double vision Respiratory - No cough or shortness of breath GI - No nausea or vomiting Musculoskeletal - No back pain or muscle weakness EXAM: Constitutional - Alert and oriented, in no distress HEENT - Cornea, conjunctivae and sclerae normal Cardiovascular - Regular rate and rhythm, no murmur Respiratory - Clear to auscultation bilaterally GI - Soft, non tender Extremities - No significant edema Neurologic - No focal deficits MEDICATIONS: SCHEDULED: aspirin 81 mg Oral Daily atorvaSTATin 80 mg Oral Nightly cholecalciferol 1,000 Units Oral Daily clopidogrel 75 mg Oral Daily furosemide 40 mg Oral Daily gabapentin 300 mg Oral TID heparin 5,000 Units Subcutaneous 2 times per day metoprolol succinate 25 mg Oral BID pantoprazole 40 mg Oral QAM AC sacubitril-valsartan 1 tablet Oral BID spironolactone 12.5 mg Oral Daily IV: sodium chloride 0.45% 1,000 mL (05/18/18 3377) PRN: HYDROcodone-acetaminophen, melatonin, nitroglycerin, traMADol LAB: Recent Labs Lab 05/15/18 0826 WBC 9.6 HGB 13.8 HCT 40.5 MCV 92.4 PLT 185 Recent Labs Lab 05/19/18 0452 05/17/18 0348 05/16/18 0608 NA 140 142 140 K 4.4 4.6 4.9 BUN 28* 27* 23 CREA 1.79* 1.89* 1.87* EGFR 39* 37* 37* CALCIUM 8.2* 8.7 8.6 GLU 116* 103* 101* Recent Labs Lab 05/17/18 0348 BNP 224* No results found for: CHOL, TRIG, HDL, LDL No results for input(s): PHART, PO2ART, UIV4WOK, U6NSTAWG, BEART in the last 168 hours. DIAGNOSTIC STUDIES: Available data and images were reviewed personally. Significant results and findings are a ddressed here or in the Assessment and Plan. residential monitor shows: Sinus rhythm with no significant arrhythmia. ASSESSMENT/PLAN Patient Active Hospital Problem List: Coronary artery disease involving cantwell coronary artery of cantwell heart without angina pe ctoris (04/06/2017) POA: Yes Assessment: No chest pain, does have large area of lateral ischemia in the circumflex dis tribution Plan: Tentatively on schedule with Dr. Canas today for PCI to circumflex. As described, ovidio iscussed at heart Team conference and that was agreed upon strategy for dealing with his isc hemic cardio myopathy this point Ischemic cardiomyopathy (05/26/2017) POA: Yes Assessment: On Entresto and metoprolol succinate Plan: No change Chronic systolic congestive heart failure (10/17/2017) POA: Yes Assessment: Stable no volume overload Plan: No change Please call with any questions [facility] aron Ang LI [facility] - 05/19/2018 8:02 AM PDTRT referral received to evaluate for home health for COPD pt fo r high risk for readmission: 62 yo male lives at home with in [place]. Insurance is [employer] Medicaid HMO. Social work to follow as needed following Complex Cardiac Team conference today. Electro nically signed by SURESH MastersSW at 05/19/2018 8:02 AM Carli León MD - 8:50 PM PDT PATIENT NAME: Bob Will : 1955: AGE: 62 y.o. PRIMARY CARE: Jeet King MD REFERRING: Missael Meade MD [facility] Inpatient Consult Progress Note Date of Service: 05/18/2018 IMPRESSION & RECOMMENDATIONS It was a pleasure to see Mr Will again today at the request of Dr Arredondo and Dr Canas. In brief, Mr Will is a 62 y.o. year old male with history of HTN, HL, LOUISA, tobacco use (quit >1yr), and severe MVCAD s/p STEMI c/b in-hospital repeated cardiac arrest with PTCA o f LM -LCX and LM- LAD ([facility] 03/15/17) c/b anterior wall infarction and e jolanta ISRS of LM-LCX stent requiring PTCA again (Resolute [place]) earlier this year and now aga in has ISRS. PFTs from today do not suggest a primary pulmonary reason for dyspnea. At thi s time, I suspect there is a chance for symptom benefit with revascularization of the left c ircumflex although acknowledges that this could be higher than average risk given his baseli ne severe systolic dysfunction and area subtended by this high risk lesion. If clinically i ndicated, Mr. Will would be interested in evaluation for advanced end-stage heart failu re therapies such as heart transplant and LVAD in the future. Await discussion at complex cardiac case team conference Weds regarding risk-benefit rat io to Impella assisted PTCA of LM-LCX and if reasonable, level of support needed (Impella CP vs Impella 5.0) Consider stopping metformin soon as planning for PTCA Carli Meade MD MPH [facility] SUBJECTIVE No overnight events, note chest pain, feels he can walk a little bit better than he did in itially but is not back to test recent baseline no orthopnea, no PND no edema, weight down 2 pounds. Clarified that initial stent Xience [place] and second stent was Medtronic Resolute alvaro. Pertinent positive ROS: persistent mild WEI, anxiety on health issues Pertinent negative ROS: Fevers, chills, chest pressure, chest pain, palpitations, edema Rest of 12 point review of systems negative OBJECTIVE: No Known Allergies SCHEDULED MEDS: aspirin 81 mg Oral Daily atorvaSTATin 80 mg Oral Nightly cholecalciferol 1,000 Units Oral Daily clopidogrel 75 mg Oral Daily furosemide 40 mg Oral Daily gabapentin 300 mg Oral TID heparin 5,000 Units Subcutaneous 2 times per day metoprolol succinate 25 mg Oral BID pantoprazole 40 mg Oral QAM AC sacubitril-valsartan 1 tablet Oral BID spironolactone 12.5 mg Oral Daily IV INFUSIONS: sodium chloride 0.45% PHYSICAL EXAM Tele: Sinus rhythm, P tracking no ectopy BP 101/55 | Pulse 79 | Temp 36.1 C (97 F) (Temporal) | Resp 18 | Ht 1.753 m (5' 9") | Wt 95.2 kg (209 lb 14.1 oz) | SpO2 90% | BMI 30.99 kg/m Body mass index is 30.99 kg/m. GENERAL: Well developed well nourished appearing stated age. No apparent distress HEENT: Atraumatic normocephalic head. DEMIAN, sclera clear; sinuses nontender to light palp ation; oropharynx and conjunctivae are clear. Mucous membranes moist. NECK: Soft supple neck, no masses or submandibular or cervical lymphadenopathy. BACK: No spinal or paraspinal tenderness, no flank pain PULM: Good inspiratory effort with no crackles or wheezes. CARDIAC: JVP less than 7, negative HJR. No parasternal lift. PMI is focal and non-displ aced. Normal S1 and S2. Regular. No murmurs, rubs or gallops. ABDOMEN: Soft, non-tender, nondistended abdomen with normal bowel sounds. EXTREMITIES: No edema or cyanosis. PULSES :Carotids are 2+ and brisk bilaterally without bruits. Radial pulses 2+ and symmetri c. Distal pulses intact. Known left femoral bruit with bilateral 1+ pulses NEUROLOGIC: Alert and oriented to person, place, time, and event. Grossly nonfocal cranial nerve exam. SKIN: No rashes or skin breakdown. MUSCULOSKELETAL: normal ambulation and range of motion in all extremities PSY: Normal mood and affect, reasonable insight and judgment demonstrated during visit, goo d eye contact Pertinent Tests: No 6 minute walk test PFTs 05/18/18 FVC 94% FEV1 83% ratio 87% total lung capacity 107% vital capacity 96% DLCO 85% All Component Based Labs None Lab Results Component Value Date WBC 9.6 05/15/2018 HGB 13.8 05/15/2018 PLT 185 05/15/2018 ALT 57 05/14/2018 AST 29 05/14/2018 NA 142 05/17/2018 K 4.6 05/17/2018 CREA 1.89 (H) 05/17/2018 BUN 27 (H) 05/17/2018 INR 1.10 10/03/2017 As part of my care, I reviewed the past 24hrs notes, vitals, labs and diagnostic studies. I have also reviewed the allergies, medications and orders. All of the patient's concerns and questions were addressed to their apparent satisfaction. This note was dictated using voice recognition software. If you or the patient have any que stions, please do not hesitate to contact me. Signed by: Carli Meade MD MPH [facility]ACC 05/18/2018, 20:50 arolyn De La Cruz R RT - 05/18/2018 1:35 PM PDTFull PFT completed. Pt's blood pressure was 80/40. Due to the lo w BP, the 6 minute walk study was not completed. Blood pressure was taken 4 times, twice by 2 therapists. ajal Chavez ARNP - 05/18/2018 12:55 PM PDT CARDIOLOGY DAILY PROGRESS NOTE Seen by ADARSH Cevallos with Macho Arredondo MD on 05/18/2018 (Hospital Day: 6) PATIENT NAME: Bob Will DATE OF : 1955 MED RECORD: [id number] SUBJECTIVE Mr. Will was seen today regarding his CAD, ICM Pt denies any further orthopnea or PND. No CP. He continues to walk in the halls multiple t imes a day without any issues. No dizziness. Appetite is good. OBJECTIVE Vitals: Temp: 36.4 C (97.5 F) BP: 101/55 Pulse: 67 Resp: 16 SpO2: 93 % Weight: Today's Weight: 95.2 kg (209 lb 14.1 oz) Admit Weight: 94.6 kg (208 lb 8.9 oz) 24 hour I/O: REVIEW OF SYSTEMS: Intake/Output Summary (Last 24 hours) at 05/18/18 1255 Last data filed at 05/18/18 0752 Gross per 24 hour Intake 928 ml Output 1620 ml Net -692 ml Consitutional - No fatigue, fevers or chills HEENT - No blurred or double vision Respiratory - No cough or shortness of breath GI - No nausea or vomiting Musculoskeletal - No back pain or muscle weakness EXAM: Constitutional - Alert and oriented, in no distress HEENT - No cyanosis of the lips Cardiovascular - distant heart sounds. Respiratory - Clear to auscultation bilaterally GI - Soft, non tender Extremities - No significant edema Neurologic - No focal deficits MEDICATIONS: SCHEDULED: aspirin 81 mg Oral Daily atorvaSTATin 80 mg Oral Nightly cholecalciferol 1,000 Units Oral Daily clopidogrel 75 mg Oral Daily furosemide 40 mg Oral Daily gabapentin 300 mg Oral TID heparin 5,000 Units Subcutaneous 2 times per day metoprolol succinate 25 mg Oral BID pantoprazole 40 mg Oral QAM AC sacubitril-valsartan 1 tablet Oral BID spironolactone 12.5 mg Oral Daily IV: PRN: HYDROcodone-acetaminophen, melatonin, nitroglycerin, traMADol RECENT SELECT LAB: Recent Labs Lab 05/15/18 0826 WBC 9.6 HGB 13.8 HCT 40.5 MCV 92.4 PLT 185 Recent Labs Lab 05/17/18 0348 05/16/18 0608 05/15/18 0826 NA 142 140 138 K 4.6 4.9 4.6 BUN 27* 23 24 CREA 1.89* 1.87* 1.79* EGFR 37* 37* 39* CALCIUM 8.7 8.6 8.9 GLU 103* 101* 131* Recent Labs Lab 05/17/18 0348 BNP 224* No results found for: CHOL, TRIG, HDL, LDL No results for input(s): PHART, PO2ART, FGM8RSK, V5DCVFXW, BEART in the last 168 hours. DIAGNOSTIC STUDIES: Available data and images were reviewed personally. Significant results and findings are a ddressed here or in the Assessment and Plan. residential monitor shows: Normally functioning pacemaker. ASSESSMENT/PLAN 1. Chronic systolic HF: better compensated on higher dose of furosemide. 2. ICM: NYHA Class III. EF 25% per echo 05/01/2018 done at [facility] (down from 35% per echo 2017). He is currently on Entresto+metprolol succinate+noris for GDMT. 3. CAD: pt has prior hx of PCI LM and Cx 03/2017, and in 10/2017 had ANY ostial Cx and POBA L M/LAD. Most recent cath done at [facility] shows patent LAD and RCA, but he has a tight stenosis ostial ISR Cx. Pt high risk for CABG. Plan to present case at Heart Team meeting and await for transplants recommendations. Plan to make pt NPO for possible PCI tomorrow 4. CKD: renal function stable 5. DM II: plan to hold metformin in prep for possible PCI tomorrow. 6. HLD: on statin therapy 7. LOUISA: pt reports he has had a sleep study and was told he has LOUISA and is in the process o f getting a repeat sleep study to be started on CPAP. Plan: 1. NPO after midnight for possible PCI tomorrow 2. Hold metformin. 3. Continue all other medications for now. 4. Plan to start gentle hydration with 1/2 NS 50cc/hr starting at 10pm Please call with any questions [facility] Associated attestation - Macho Arredondo MD - 05/18/2018 10:32 PM PDTFormatting of this no te might be different from the original. PHYSICIAN ADDENDUM I reviewed today's note by ADARSH Quan EXAM: Cardiovascular - RRR, no murmur heard Respiratory - CTA bilaterally Lymphatic/Extremities - no significant edema IMP/PLAN: 62-year-old male with severe ischemic cardiomyopathy, complex cardiac history, transferred here for consideration of high risk revascularization. Patient will be discussed at cardiac cath conference tomorrow morning but anticipate proceeding with PCI of ostial circumflex armando orrow. Still has orthopnea which could be sleep apnea? Denies dyspnea on exertion, no evide nce of volume overload on exam Carolyn De La Cruz RRT - 05/18/2018 9:31 AM PDTAssessed pt for Pulmonary Rehab. Pt lives out of town. Referred to Social Work to evaluate for Home Health Services. Electronically si gned by Carolyn De La Cruz RRT at 05/18/2018 9:32 AM Marimar Christopher ARNP - 0 05/17/2018 10:53 AM PDT CARDIOLOGY DAILY PROGRESS NOTE Seen by ADARSH Parnell with Macho Arredondo MD on 05/17/2018 (Hospital Day: 5) PATIENT NAME: Bob Will DATE OF : 1955 MED RECORD: [id number] SUBJECTIVE Mr. Will was seen today regarding his CAD and heart failure Patient is currently feeling well, despite some dyspnea with exertion. He is able to tolera te ambulation without experiencing chest pain or discomfort. He does have some generalized f atigue, however. He understands his plan of care and is awaiting consultation from the heart transplant team, and for possible coronary revascularization. OBJECTIVE Vitals: Temp: 35.9 C (96.7 F) BP: 111/61 Pulse: 67 Resp: 16 SpO2: 96 % Weight: Today's Weight: 96 kg (211 lb 10.3 oz) Admit Weight: 94.6 kg (208 lb 8.9 oz) 24 hour I/O: REVIEW OF SYSTEMS: Intake/Output Summary (Last 24 hours) at 05/17/18 1054 Last data filed at 05/17/18 1000 Gross per 24 hour Intake 240 ml Output 2040 ml Net -1800 ml Consitutional - No fatigue, fevers or chills HEENT - No tinnitus, vertigo or visual changes Respiratory - + for SOB at times and WEI. Negative for cough. GI - No nausea or vomiting Musculoskeletal - Some generalized fatigue. EXAM: Constitutional - Alert and oriented, in no distress HEENT - Cornea, conjunctivae and sclerae normal Cardiovascular - Distant heart sounds, regular rate and rhythm. Respiratory - Clear to auscultation bilaterally GI - Soft, non tender Extremities - Trace edema Neurologic - No focal deficits MEDICATIONS: SCHEDULED: aspirin 81 mg Oral Daily atorvaSTATin 80 mg Oral Nightly cholecalciferol 1,000 Units Oral Daily clopidogrel 75 mg Oral Daily famotidine 40 mg Oral Daily furosemide 40 mg Oral Daily gabapentin 300 mg Oral TID heparin 5,000 Units Subcutaneous 2 times per day metFORMIN 500 mg Oral BID WC metoprolol succinate 25 mg Oral BID pantoprazole 40 mg Oral QAM AC sacubitril-valsartan 1 tablet Oral BID spironolactone 12.5 mg Oral Daily IV: PRN: HYDROcodone-acetaminophen, melatonin, nitroglycerin, traMADol RECENT SELECT LAB: Recent Labs Lab 05/15/18 0826 WBC 9.6 HGB 13.8 HCT 40.5 MCV 92.4 PLT 185 Recent Labs Lab 05/17/18 0348 05/16/18 0608 05/15/18 0826 NA 142 140 138 K 4.6 4.9 4.6 BUN 27* 23 24 CREA 1.89* 1.87* 1.79* EGFR 37* 37* 39* CALCIUM 8.7 8.6 8.9 GLU 103* 101* 131* Recent Labs Lab 05/17/18 0348 BNP 224* No results found for: CHOL, TRIG, HDL, LDL No results for input(s): PHART, PO2ART, RZK0BDH, Q5BPNPGI, BEART in the last 168 hours. DIAGNOSTIC STUDIES: Available data and images were reviewed personally. Significant results and findings are a ddressed here or in the Assessment and Plan. residential monitor shows: V-Pacing 100% with rates 80-90. ASSESSMENT/PLAN Chronic systolic congestive heart failure (HCC) Assessment & Plan A: -Patient appears to be euvolemic this exam. -Does elicit shortness of breath with activity. P: -Awaiting heart transplant team recommendations. -Continue current medical therapy. Ischemic cardiomyopathy Assessment & Plan 03/2018: LVEF of 35%. 04/2018: LVEF of 25%. A: Currently denying chest pain or discomfort with ambulation. Understands potential for co ronary angiogram with likely stent placement. P: -Continue current therapy. -Await for heart catheterization. -Awaiting recommendations from heart transplant team. Coronary artery disease involving cantwell coronary artery of cantwell heart without angina pec toris Assessment & Plan A: -Patient able to ambulate the halls without chest pain or discomfort. -Currently on Aspirin daily, and nitro as needed. P: -Plan for possible coronary revascularization after case is presented at heart team meeting . FIELD SERVICES MANAGER-D (AICD) Med[employer] 10/16/17 [facility] Stecker Assessment & Plan Medtr[employer] AICD Placed in 10/2017 at [facility]. A: -Patient ventricular paced 100% this morning. No arrhythmias on telemetry. P: -No acute therapy. Continue current therapy. COPD (chronic obstructive pulmonary disease) ([facility]) Assessment & Plan A: -Patient on room air, ambulating the halls. C/O shortness of breath at times with exertion, however subjectively slightly improving. -Uses nasal cannula as needed. -Lungs sound clear during this assessment. -Tobacco free for one year. P: -Continue with current therapy. PLAN: -Awaiting recommendations from heart failure team. -Possible PCI in near future. -Continue current medication regimen. Please call with any questions [facility] Associated attestation - Macho Arredondo MD - 05/17/2018 11:03 PM PDTFormatting of this no te might be different from the original. PHYSICIAN ADDENDUM I reviewed today's note by ADARSH Villar EXAM: Cardiovascular - RRR, no murmur heard Respiratory - CTA bilaterally Lymphatic/Extremities - no significant edema IMP/PLAN: 62-year-old male with severe ischemic cardiomyopathy and progressive heart failure symptom s transferred from [facility] for consideration of high risk revascularization. Also, w e are trying to reinstitute medical therapy for his cardiomyopathy and congestive heart fail ure. Does have some intermittent shortness of breath, may have some sleep apnea. On exam,devon ears euvolemic. Currently on metoprolol succinate, Entresto, and low-dose Spironolactone Danna Chakraborty RN - 05/16/2018 1:37 PM PDTFormatting of this note might be different fr om the original. 6N / 6S Shift Summary Note Room # 608/608-01 Name: Bob Will [id number] Code Status: See prior hospital encounter Isolation: None Dx/Tx: Surgery/ Procedure: Surgery Consult Vitals: 05/15/18 2329 05/16/18 0300 05/16/18 0700 05/16/18 1206 BP: 121/77 106/62 100/56 102/57 Pulse: 79 71 62 69 Resp: 16 16 16 16 Temp: 35.8 C (96.5 F) 36.2 C (97.1 F) 35.4 C (95.8 F) 35.6 C (96.1 F) TempSrc: Temporal Temporal Temporal Temporal SpO2: 94% 94% 93% Weight: Height: Shift Summary Information: NSTEMI 15 days ago. planned to discuss case at Thursday [facility] to come up with a plan. Chronic neck pain well controlled with 10mg Donnellson q4. Indepen dent in room. VSS. Self imposed fluid restriction. Enjoyed discussion with music copyist this AM. Additional 20mg lasix ordered and given this AM. Neuro: A&O Resp: WDL LDAs R PIV Cardiac: Pacemaker Active Gtts: Abnormal Labs/ Treatment: GI: WDL Active Orders Diet Diet fat and cholesterol modified; sodium restricted 3-4 gm; Effective Now : WDL Skin: (Incisions/ Wounds/ Edema) Pain: Chronic Neck Pain Activity: Idependent Therapy involved?: Devon Ricks MD - 05/16/2018 10:00 AM PDTAwaiting Transplant/MCS evaluation. Agree with Dr. Canas that repeat Circ stent can be done, but we need to define the assistant terminal manager plan. Doubt that CABG indicated given ability to stent Circ. I told Mr. Will that it will be a few days to sort out. Electronically signed by: Devon Trujillo M.D. CardioThoracic Surgery [facility] 05/16/2018, 10:00 Khurram Hernandez MD - 05/16/2018 8:06 AM PDT CARDIOLOGY DAILY PROGRESS NOTE Seen by ADARSH Cevallos with Khurram Canas MD on 05/16/2018 (Hospital Day: 4) PATIENT NAME: Bob Will DATE OF : 1955 MED RECORD: [id number] SUBJECTIVE Mr. Will was seen today regarding his heart failure, ICM, CAD Pt reports some symptoms of PND last night. He states this is not new and that he was in th e process of have a second sleep study to get fitted for CPAP. Otherwise he continues to wal k in the halls without any dyspnea or CP, but he does report getting tired easily. Appetite is good. No c/o dizziness OBJECTIVE Vitals: Temp: 35.4 C (95.8 F) BP: 100/56 Pulse: 62 Resp: 16 SpO2: 93 % Weight: Today's Weight: 97 kg (213 lb 13.5 oz) Admit Weight: 94.6 kg (208 lb 8.9 oz) 24 hour I/O: REVIEW OF SYSTEMS: Intake/Output Summary (Last 24 hours) at 05/16/18 0806 Last data filed at 05/16/18 0317 Gross per 24 hour Intake 30 ml Output 1672 ml Net -1642 ml Consitutional - mild exertional fatigue HEENT - No blurred or double vision Respiratory - PND GI - No nausea or vomiting Musculoskeletal - No back pain or muscle weakness EXAM: Constitutional - Alert and oriented, in no distress HEENT - No cyanosis of the lips Cardiovascular - heart sounds distant but normal S1S2- no murmur heard Respiratory - Clear to auscultation bilaterally GI - Soft, non tender Extremities - No significant edema Neurologic - No focal deficits MEDICATIONS: SCHEDULED: aspirin 81 mg Oral Daily atorvaSTATin 80 mg Oral Nightly cholecalciferol 1,000 Units Oral Daily clopidogrel 75 mg Oral Daily famotidine 40 mg Oral Daily furosemide 20 mg Oral Daily gabapentin 300 mg Oral TID heparin 5,000 Units Subcutaneous 2 times per day metFORMIN 500 mg Oral BID WC metoprolol succinate 25 mg Oral BID pantoprazole 40 mg Oral QAM AC sacubitril-valsartan 1 tablet Oral BID IV: PRN: HYDROcodone-acetaminophen, melatonin, nitroglycerin, traMADol RECENT SELECT LAB: Recent Labs Lab 05/15/18 0826 WBC 9.6 HGB 13.8 HCT 40.5 MCV 92.4 PLT 185 Recent Labs Lab 05/16/18 0608 05/15/18 0826 05/14/18 0927 NA 140 138 142 K 4.9 4.6 4.6 BUN 23 24 25 CREA 1.87* 1.79* 1.84* EGFR 37* 39* 38* CALCIUM 8.6 8.9 9.1 GLU 101* 131* 119* No results for input(s): TROPONIN, BNP, PLTFUNCPLVX in the last 168 hours. Invalid input(s): CKTOTAL No results found for: CHOL, TRIG, HDL, LDL No results for input(s): PHART, PO2ART, BNU1VYA, F1KMGLGO, BEART in the last 168 hours. DIAGNOSTIC STUDIES: Available data and images were reviewed personally. Significant results and findings are a ddressed here or in the Assessment and Plan. residential monitor shows: Normally functioning pacemaker. ASSESSMENT/PLAN 1. Chronic systolic HF: overall pt appears compensated but he reports some symptoms of "sha llow breathing" last night that => O2 and eventual sleep in the chair. His wt is up 5 lbs si nce admission, net I/O -2.9 liters. Plan to given an additional lasix today. 2. ICM: NYHA Class III. EF 25% per echo 05/01/2018 done at [facility] (down from 35% per echo 2017). He is currently on Entresto+metprolol succinate for GDMT. Consider adding Eplerenone. Wait for advanced HF team recommendations. 3. CAD: pt has prior hx of PCI LM and Cx 03/2017, and in 10/2017 had ANY ostial Cx and POBA L M/LAD. Most recent cath done at [facility] shows patent LAD and RCA, but he has a tight stenosis ostial ISR Cx. Pt high risk for CABG. Plan to present case at Heart Team meeting and await for transplants recommendations to see if PCI to ISR would be best option for revasc. 4. CKD: appears his baseline Cr ~1.7. Renal function remains stable overall with Cr 1.8 tod ay. Continue to closely monitor. 5. DM II: on metformin. Plan to hold this if PCI is recommended. 6. HLD: on statin therapy Plan: 1. Given addition furosemide 20mg this am =40mg this am 2. Continue all other medications 3. Continue to increase ambulation today 4. BMP in am Please call with any questions [facility] PHYSICIAN ADDENDUM I reviewed today's note by ADARSH Quan EXAM: Cardiovascular - RRR, no murmur heard Respiratory - CTA bilaterally Lymphatic/Extremities - trace edema IMP/PLAN: Mild dyspnea - will increase lasix a little CMP - on metoprolol succ. and entresto, will add aldactone CAD continue ASA/Plavix, consider circ PCI depending on assistant terminal manager CMP plan Await Advanced Heart Failure team plan - and anticipate heart team discussion on Wed AM hurram Canas MD - 05/15/2018 12:50 PM PDT CARDIOLOGY DAILY PROGRESS NOTE Seen by ADARSH Cevallos with Khurram Canas MD on 05/15/2018 (Hospital Day: 3) PATIENT NAME: Bob Will DATE OF : 1955 MED RECORD: [id number] SUBJECTIVE Mr. Will was seen today regarding his CAD, ICM Pt denies any current symptoms of dyspnea. He has done some ambulating in the hyde and jacqui es any symptoms of CP. No dizziness. He is very anxious about what the plan of care is. OBJECTIVE Vitals: Temp: 36.2 C (97.1 F) BP: 112/60 Pulse: 74 Resp: 16 SpO2: 94 % Weight: Today's Weight: 94.6 kg (208 lb 8.9 oz) Admit Weight: 94.6 kg (208 lb 8.9 oz) 24 hour I/O: REVIEW OF SYSTEMS: Intake/Output Summary (Last 24 hours) at 05/15/18 1250 Last data filed at 05/15/18 0400 Gross per 24 hour Intake 60 ml Output 900 ml Net -840 ml Consitutional - No fatigue, fevers or chills HEENT - No blurred or double vision Respiratory - No cough or shortness of breath GI - No nausea or vomiting Musculoskeletal - No back pain or muscle weakness EXAM: Constitutional - Alert and oriented, in no distress HEENT - No cyanosis of the lips Cardiovascular - Heart sounds are distant, but S1 S2 noted. No murmur heard Respiratory - Clear to auscultation bilaterally GI - Soft, non tender Extremities - No significant edema Neurologic - No focal deficits MEDICATIONS: SCHEDULED: aspirin 81 mg Oral Daily atorvaSTATin 80 mg Oral Nightly cholecalciferol 1,000 Units Oral Daily clopidogrel 75 mg Oral Daily famotidine 40 mg Oral Daily furosemide 20 mg Oral Daily gabapentin 300 mg Oral TID heparin 5,000 Units Subcutaneous 2 times per day metFORMIN 500 mg Oral BID WC metoprolol succinate 25 mg Oral BID pantoprazole 40 mg Oral QAM AC sacubitril-valsartan 1 tablet Oral BID IV: PRN: HYDROcodone-acetaminophen, melatonin, nitroglycerin, traMADol RECENT SELECT LAB: Recent Labs Lab 05/15/18 0826 WBC 9.6 HGB 13.8 HCT 40.5 MCV 92.4 PLT 185 Recent Labs Lab 05/15/18 0826 05/14/18 0927 NA 138 142 K 4.6 4.6 BUN 24 25 CREA 1.79* 1.84* EGFR 39* 38* CALCIUM 8.9 9.1 GLU 131* 119* No results for input(s): TROPONIN, BNP, PLTFUNCPLVX in the last 168 hours. Invalid input(s): CKTOTAL No results found for: CHOL, TRIG, HDL, LDL No results for input(s): PHART, PO2ART, ZRH6DVC, O2VYAQSU, BEART in the last 168 hours. DIAGNOSTIC STUDIES: Available data and images were reviewed personally. Significant results and findings are a ddressed here or in the Assessment and Plan. residential monitor shows: Normally functioning pacemaker. ASSESSMENT/PLAN 1. Chronic systolic HF: current compensated/euvolemic on low dose furosemide. 2. ICM: NYHA Class II-III. EF 25% per echo 05/01/2018 done at [facility] (down from 35% per echo 03/2018). He is currently on Entresto+metprolol succinate for GDMT. Consider adding Eplereno ne. Advanced heart failure team has been consulted so we will wait to see if they have any s pecific recommendation prior to adjusting GDMT. 3. CAD: pt has prior hx of PCI LM and Cx 03/2017, and in 10/2017 had ANY ostial Cx and POBA L M/LAD. Most recent cath done at [facility] shows patent LAD and RCA, but he has a tight stenosis ostial Cx. CTS consulted re: CABG to Cx, but the pt is considered very high risk. Currently he is not having any angina. Dr Canas will review the cath films from [facility] and determine i f PCI to Cx +/- Impella support is an option. Pt is currently on DAPT+BB+statin. 4. CKD: appears his baseline Cr ~1.7. Renal function currently stable. Plan to continue to monitor. 5. DM II: on metformin. Plan to hold this if PCI is recommended. 6. HLD: on statin therapy Plan: 1. Continue with present medications for now 2. Dr Canas to review cath films 3. BMP in am Please call with any questions [facility] PHYSICIAN ADDENDUM I reviewed today's note by ADARSH Quan EXAM: Cardiovascular - RRR, no murmur heard Respiratory - CTA bilaterally Lymphatic/Extremities - trace edema IMP/PLAN: Cath films from 03/2017 and 04/2018 reviewed, but not the 09/2017 films. Recent echo reviewed , but prior echos not available to me now. Cardiogenic shock 1 year ago with LM occlusion d uring STEMI PCI - eventually improved and EF reportedly normalized (but I have not seen that echo report or the images myself). In Sep returned with in-stent restenosis and anterior M I with EF reported at 35-40% - evidently with non-viable ant wall was felt to be high risk f or CABG so he had repeat PCI. Subsequently he's had viability study that reportedly shows n o anterior viability, recent cath shows high grade circumflex stenosis that is in-stent rest enosis. Currently not having angina and is HD stable, the transplant/LAVD team was consulted. He's now in a similar situation to Sep/Oct of this year (except EF is now worse), ant wall non-viable, risk/benifit does not favor surgery and recurrent restenosis in the circ stent. I reviewed the films - PCI to the circumflex is an option, but with prior in-stent restenos is and a EF now 25% it's a high risk PCI with sub-optimal assistant terminal manager results. It might make sense to revasc the circ now if that will help bridge us to some advanced heart failure proc edure, but I don't know how much assistant terminal manager benefit there will be to just doing a circ PCI wi thout a longer term plan. Will await the heart failure team's input and will want to discus s him at heart team meeting this week. Danna Rich RN - 05/15/2018 12:42 PM PDT 6N / 6S Shift Summary Note Room # 608/608-01 Name: Bob Will [id number] Code Status: See prior hospital encounter Isolation: None Dx/Tx: NSTEMI 14 days ago Surgery/ Procedure: Surgery Consult Vitals: 05/15/18 0402 05/15/18 0604 05/15/18 0715 05/15/18 1125 BP: (!) 80/47 116/70 99/57 112/60 Pulse: 65 74 70 74 Resp: 16 Temp: 36.9 C (98.4 F) 35.8 C (96.4 F) 35.8 C (96.5 F) 36.2 C (97.1 F) TempSrc: Temporal Temporal Temporal Temporal SpO2: 94% 95% 93% 94% Weight: Height: Shift Summary Information: NSTEMI occurred 14 days ago. Consult today, talking about possib le stent, LVAD, and transplant options. High risk case, going to discuss his case at We morning conference to come up with a plan of action. Chronic neck pain well controll ed with 10mg Donnellson q4. Independent in room. VSS. Self imposed fluid restriction. Showered to day. Neuro: A&O x4 Resp: WDL LDAs R PIV Cardiac: Pacemaker Active Gtts: Abnormal Labs/ Treatment: GI: WDL Active Orders Diet Diet fat and cholesterol modified; sodium restricted 3-4 gm; Effective Now : WDL Skin: (Incisions/ Wounds/ Edema) Pain: Chronic neck pain Activity: Up independently Therapy involved?: udson, Danna Stoner RN - 05/14/2018 4:19 PM PDT 6N / 6S Shift Summary Note Room # 608/608-01 Name: Bob Will [id number] Code Status: See prior hospital encounter Isolation: None Dx/Tx: NSTEMI 13 days ago Surgery/ Procedure: Surgery consult Vitals: 05/14/18 0429 05/14/18 0722 05/14/18 1200 05/14/18 1500 BP: 112/64 93/58 103/55 106/62 Pulse: 76 69 76 76 Resp: 18 16 Temp: 36.5 C (97.7 F) 35.3 C (95.6 F) 35.7 C (96.2 F) 35.9 C (96.6 F) TempSrc: Temporal Temporal Temporal Temporal SpO2: 97% 96% 96% 93% Weight: Height: Shift Summary Information: NSTEMI occurred 13 days ago. Surgery consult this shift, patient and frustrated with outcome of the consult. Chronic neck pain well controlled with 10m g Donnellson q4. Independent in room. VSS. Self imposed fluid restriction. Service dog and p resent for most of day. Follow up with heart failure team Neuro: A&O Resp: LDAs PIV Cardiac: Pacemaker Active Gtts: Abnormal Labs/ Treatment: GI: WDL Active Orders Diet Diet fat and cholesterol modified; sodium restricted 3-4 gm; Effective Now : WDL Skin: (Incisions/ Wounds/ Edema) Pain: Chronic neck pain controlled with 10mg Donnellson q4f Activity: Independent in room Therapy involved?: Janel Ventura ARNP - 05/14/2018 9:31 AM PDTFormatting of this note might be different from the [facility] CARDIOLOGY DAILY PROGRESS NOTE Seen by ADARSH Yoon with Macho Arredondo MD on 05/14/2018 (Hospital Day: 2) PATIENT NAME: Bob Will DATE OF : 1955 MED RECORD: [id number] SUBJECTIVE Mr. Will was seen today regarding his ischemic cardiomyopathy, and evaluation for high risk surgical intervention. Feeling well, up ambulating in hallway. OBJECTIVE Vitals: Temp: 35.3 C (95.6 F) BP: 93/58 Pulse: 69 Resp: 18 SpO2: 96 % Weight: Today's Weight: 94.6 kg (208 lb 8.9 oz) Admit Weight: 94.6 kg (208 lb 8.9 oz) 24 hour I/O: REVIEW OF SYSTEMS: Intake/Output Summary (Last 24 hours) at 05/14/18930 Last data filed at 05/14/18 06 Gross per 24 hour Intake 400 ml Output 850 ml Net -450 ml Consitutional - No fatigue, fevers or chills HEENT - No blurred or double vision Respiratory - No cough or shortness of breath GI - No nausea or vomiting Musculoskeletal - No back pain or muscle weakness EXAM: Constitutional - Alert and oriented, in no distress HEENT - Cornea, conjunctivae and sclerae normal Cardiovascular - Regular rate and rhythm, no murmur Respiratory - Clear to auscultation bilaterally GI - Soft, non tender Extremities - No significant edema Neurologic - No focal deficits MEDICATIONS: SCHEDULED: aspirin 81 mg Oral Daily atorvaSTATin 80 mg Oral Nightly cholecalciferol 1,000 Units Oral Daily clopidogrel 75 mg Oral Daily famotidine 40 mg Oral Daily furosemide 20 mg Oral Daily gabapentin 300 mg Oral TID heparin 5,000 Units Subcutaneous 2 times per day metFORMIN 500 mg Oral BID WC metoprolol succinate 25 mg Oral Daily pantoprazole 40 mg Oral QAM AC sacubitril-valsartan 1 tablet Oral BID IV: PRN: HYDROcodone-acetaminophen, melatonin, nitroglycerin, traMADol RECENT SELECT LAB: No results for input(s): WBC, HGB, HCT, MCV, PLT, INR in the last 168 hours. No results for input(s): NA, K, BUN, CREA, EGFR, MG, CALCIUM, GLU, TSH in the last 168 hour s. No results for input(s): TROPONIN, BNP, PLTFUNCPLVX in the last 168 hours. Invalid input(s): CKTOTAL No results found for: CHOL, TRIG, HDL, LDL No results for input(s): PHART, PO2ART, ZXV1TNT, A5FDRZIT, BEART in the last 168 hours. DIAGNOSTIC STUDIES: Available data and images were reviewed personally. Significant results and findings are a ddressed here or in the Assessment and Plan. residential monitor shows: Sinus rhythm with no significant arrhythmia. ASSESSMENT/PLAN COPD (chronic obstructive pulmonary disease) (HCC) Assessment & Plan Chronic condition. Chronic systolic congestive heart failure (HCC) Assessment & Plan No indication of acute volume overload. 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 Placen in 10/2017 at [facility]. No arhythmia noted on telemetry. Ischemic cardiomyopathy Assessment & Plan 03/2018: LVEF of 35%. 04/2018: LVEF of 25%. Done at [facility] while admitted for CHF-pulmonary edema, and shortness o f breath. GDMT:Fuorsomide, metoprolol XL, and Entresto. Creatinine stable 1.23-could consider spironolactone. NYHA II Coronary artery disease involving cantwell coronary artery of cantwell heart without angina pec toris Assessment & Plan 03/2017: transferred from [place] to [facility] with thrombosed left main artery treated with PCI of the left main into the LAD and subsequent PCI of left circumflex. Acute cardiogenic shock status post ECMO. Left atrial clot, previously on coumadin. 10/2017 when he was admitted at [facility] for pneumonia and unstable angina and underwent drug-el uting stent to ostial left circumflex and angioplasty of the distal left main with balloon i nflation extending into the left anterior descending. Plan: 1. Awaiting record from [facility]. 2. Surgical consult. Please call with any questions [facility] Associated attestation - Macho Arredondo MD - 05/14/2018 9:11 PM PDTFormatting of this no te might be different from the original. PHYSICIAN ADDENDUM I reviewed today's note by ADARSH Lomas EXAM: Cardiovascular - RRR, no murmur heard Respiratory - CTA bilaterally Lymphatic/Extremities - no significant edema IMP/PLAN: Patient seen by Dr. Trujillo today, more information available regarding his two weeks stay at [facility] He did have an angiogram late April at [facility], which is now available in [facility]. Per discussion with Dr. Trujillo, who has reviewed the angiogram, the LAD and RCA are patent.Ci rcumflex has a tight stenosis. Given non-viability of the anterior wall would need to think about PCI of the circumflex with probably temporary mechanical support. He is euvolemic on exam, will increase metoprolol succinate to 25 mg twice daily, try to ad grande his medications for cardiomyopathy. He was on Entresto before his admission to [facility], we will probably try to re-challenge him with losartan after increasing metoprolol succinate documented in this encounter H&P Notes Macho Arredondo MD - 05/13/2018 8:21 PM PDTFormatting of this note might be different fro m the original. 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 Will is a 62 y.o. male who is being admitted for ischemic cardio myopathy, for con sideration of high risk surgical revascularization. Mr. Will is a 62-year-old male with a past medical history of COPD, former smoker, qu ite in 03/2017, hypertension, hyperlipidemia, chronic neck pain, suspected sleep apnea , his tory of ischemic cardiomyopathy with his last echocardiogram done on late April 2018 showin g ejection fraction of 25-30%. This patient has history of significant coronary artery dise ase beginning in March 2017 when he was transferred from [place] to [facility] with thrombosed left main artery treated with PCI of the left main into the LAD and subsequent PCI of left c ircumflex. His hospital course at that time was complicated by acute cardiogenic shock statu s post ECMO. Left atrial clot, previously on coumadin. He was again admitted at [facility] in 10/09 018 when he was admitted for pneumonia and unstable angina and underwent drug-eluting stent to ostial left circumflex and angioplasty of the distal left main with balloon inflation ext ending into the left anterior descending. He has had no more acute cardiac event since then but had progressive heart failure symptoms. He has been on aggressive medical therapy for his heart failure including Entresto, metoprolol succinate. Despite this, he was admitted a [facility] several days ago, with recurrent heart failure with recurrent shortness of breath, pulmonary edema. His most recent echocardiogram from May 01, 2018 showed ejecti on fraction had declined to 25%-30% compared to an echocardiogram from March 2018 with ejecti on fraction was 35%. No angiogram was done since there was no evidence of recurrent ischemi a. Because of his heart failure, he was diuresed. Because of his progressive heart failure , evidence of worsening LV systolic function, a viability scan was done showing no evidence of viability in the anterior wall or anterior septum. There was evidence of redistribution/ viability in the inferior segments. He is now transferred here to see if there is any poten tial for surgical revascularization to improve his LV systolic function and heart failure sy mptoms. Information during his most recent hospitalization from [facility] is not readily available. Darshan reyes was there for 2 weeks, did have an angiogram there but currently that angiogram is not annelise ilable. Based on the information that is currently available I expect this patient will be hospital ized for greater than 2-midnights and expect the post-hospital plan to be discharge to home or to an adult foster home. PAST MEDICAL HISTORY Past Medical History: Diagnosis Date Acute anterior wall ID (HCC) 04/03/2017 Angiography and stent 03/15/2017 successful [...] stenosis on 03/15/2017 by Monse Ross MD. LOUISA (obstructive sleep apnea) Past Surgical History: Procedure Laterality Date CARDIAC CATHERIZATION N/A 03/15/2017 Procedure: CV Cor Angio; Surgeon: Monse Ross MD; Location: [facility] CV LAB CARDIAC CATHERIZATION N/A 10/03/2017 Procedure: CV Cor Angio; Surgeon: Delmer Dai MD; Location: [facility] CV LAB ELBOW SURGERY Left GALLBLADDER SURGERY NASAL SEPTUM SURGERY UPPER GASTROINTESTINAL ENDOSCOPY N/A 10/05/2017 Procedure: EGD; Surgeon: Terry Weir MD; Location: [facility] MEDICAL PROCEDURE UNIT Medications: Prescriptions Prior to Admission Medication Sig Dispense Refill aspirin 81 MG tablet Take 81 mg by mouth Daily. atorvaSTATin (LIPITOR) 80 MG tablet TAKE ONE TABLET BY MOUTH EVERY DAY IN THE EVENING 3 0 tablet 5 Cholecalciferol (VITAMIN D-3) 99112 units CAPS Take by mouth Once a [...] hours as needed for Pain (Pain).) 0 metFORMIN (GLUCOPHAGE) 500 mg tablet Take 500 mg by mouth 2 times daily (with breakfast & dinner). metoprolol succinate (TOPROL-XL) 25 mg 24 hr tablet TAKE ONE TABLET BY MOUTH EVERY DAY 90 tablet 3 nitroglycerin (NITROSTAT) 0.[address] 1 tablet under the tongue every 5 shai janeth as needed for Chest pain. 0 pantoprazole (PROTONIX) 40 mg tablet TAKE ONE TABLET BY MOUTH TWICE A DAY BEFORE MEALS. (Patient not taking: Reported on 05/13/2018) 60 tablet 5 pantoprazole (PROTONIX) 40 mg tablet Take 40 mg by mouth 2 times daily. raNITIdine (ZANTAC) 300 MG capsule Take 300 mg by mouth every evening. sacubitril-valsartan (ENTRESTO) 49-51 mg per tablet Take 1 tablet by mouth 2 times bebo y. 60 tablet 5 traMADol (ULTRAM) 50 mg tablet Take 50 mg by mouth every 6 hours as needed. Allergies: No Known Allergies Family History: As noted below No family history on file. Social History: Social History Substance Use Topics Smoking status: Former Smoker Years: 45.00 Types: Cigarettes Smokeless tobacco: Former User Quit date: 03/15/2017 Alcohol use No REVIEW OF SYSTEMS: A 14 system, 2 point review was conducted, and in addition to what is noted above in the HP I, the highlights included: Consitutional - no fevers or chills Psychological - no recent memory changes Ophthalmic - no recent visual change ENT - no epistaxis Allergy and Immunology - no itchy/watery eyes Hematological and Lymphatic - no bleeding problems, blood clots, bruising or jaundice Endocrine - no temperature intolerance Respiratory - no orthopnea or PND Cardiovascular - as detailed above in HPI Gastrointestinal - no black or bloody stools Genito-Urinary - no hematuria or incontinence Musculoskeletal - no difficulty with ambulation Neurological - no TIA or stroke symptoms Dermatological - no rash or skin lesions PHysical Exam: Vitals on Arrival: Most Recent Vitals: Temp: 36.4 C (97.6 F) Temp: 36.4 C (97.6 F) BP: 108/60 BP: 108/60 Pulse: 73 Pulse: 73 Resp: 16 Resp: 16 SpO2: 94 % SpO2: 94 % Admit Weight: 94.6 kg (208 lb 8.9 oz) Constitutional - alert, in no distress Eyes - conjunctiva and corneas are normal ENMT - no cyanosis of the lips Cardiovascular - regular rate and rhythm, S1 and S2 normal, no murmur, rub, or gallop. Respiratory - clear to auscultation bilaterally Abdomen - soft and non-tender Gastrointestinal - bowel sounds normal, no hepatosplenomegaly Musc/Skel - normal strength throughout Ext/Lymphatics - no significant edema Vasculature - distal extremity pulses are palpable Skin - no lesions or rashes Neurologic - no focal deficits DIAGNOSTIC STUDIES: Labs: Hematology/Anti coag: Lab Results Component Value Date WBC 10.9 10/07/2017 HGB 14.3 10/07/2017 HCT 43.3 10/07/2017 MCV 89.9 10/07/2017 PLT 178 10/07/2017 INR 1.10 10/03/2017 Chemistry: Lab Results Component Value Date CREA 1.23 10/09/2017 BUN 26 (H) 10/09/2017 NA 136 10/09/2017 K 3.5 10/09/2017 Lab Results Component Value Date CALCIUM 8.2 (L) 10/09/2017 MG 1.9 10/07/2017 Cardiac: No results for input(s): TROPONIN, BNP, PLTFUNCPLVX in the last 168 hours. Invalid input(s): CKTOTAL No results found for: CHOL, TRIG, HDL, LDL Imaging: Available data and images were reviewed personally. Significant results and findings are a ddressed here or in the Assessment and Plan. EKG: Atrial pacing Echocardiogram: May 01, 2018 from [facility] 1. Overall left ventricular systolic function is severely impaired with, an EF between 25 - 30 %. 2. apex - akinetic; FINDINGS -------- ECG rhythm: Sinus rhythm. Study: A 2-dimensional transthoracic echocardiogram with m-mode, spectral and color flow Do ppler was perfomed. Left Ventricle: Overall left ventricular systolic function is severely impaired with, an EF between 25 - 30 %. Left Ventricle: The left ventricle cavity size is normal. Left Ventricle: Left ventricular wall thickness is normal. Left Ventricle: The diastolic filling pattern indicates impaired relaxation consistent with mild dysfunction (Grade I). Severe hypokinesis of all lipscomb with perserved function to the anterolateral wall and the anterior wall. Left Ventricle: apex - akinetic; Right Ventricle: Pacer/ICD wire seen. Right Atrium: Pacemaker wire seen in the right atrial cavity. Aortic Valve: The aortic valve was not well visualized. Aortic Valve: There is no evidence of aortic regurgitation. Aortic Valve: There is no evidence of aortic stenosis. Mitral Valve: The mitral valve is normal. Mitral Valve: Mild mitral regurgitation is present. Tricuspid Valve: The tricuspid valve appears structurally normal. Tricuspid Valve: Trace tricuspid regurgitation present. Tricuspid Valve: Pulmonary artery systolic pressure could not be assessed due to the absenc e of adequate TR jet. Pulmonic Valve: The pulmonic valve was not well visualized. Pericardium: There is no pericardial effusion. IVC/Hepatic Veins: The IVC is normal size (1.5-2.5cm) and collapses >50% with sniff, consis tent with central venous pressures of 5-10mmHg. Aorta: Atherosclerotic changes noted in abdominal aorta. Mass: No mass visualized Thrombus: No clot visualized Septum: No ASD observed. Septum: No VSD observed. Nuclear Stress Test: Thallium viability scan May 11, 2018 IMPRESSION: 1. Hibernating myocardium suspected in the right coronary territory involving the inferior wall and the inferior portion of the septal wall. This region may benefit from reperfusion territory. 2. There is no significant redistribution seen in the anterior wall or anterior portion of the septum on the 4 hour or 24-hour images suggesting this is completely infarcted and will not benefit from reperfusion therapy in the LAD territory. 3. Normal perfusion seen in the left circumflex coronary artery territory involving the la teral wall of the left ventricle. Coronary angiogram from October 03, 2017 from [facility] in [place] HEMODYNAMICS: LEFT HEART: Left ventricular end diastolic [...] ANNA grade 1 flow to distal LAD Assessment: 1. Ischemic cardiomyopathy 2. Congestive heart failure currently euvolemic 3. Coronary artery disease 4. Status post previous coronary stent 5. On-ST segment elevation myocardial infarction at [facility] PLAN: 1. Currently chest pain free 2. Currently he is euvolemic. 3. Discontinue intravenous heparin 4. Subcutaneous heparin 5. Cardiothoracic surgery consultation regarding suitability for revascularization versus f urther coronary stenting Thank you for allowing [facility] to be involved in the care of this patient. Please call with any questions . [facility] Patient Care Team: Chato Matson MD as PCP - General (Family Medicine) Randy Figueroa MD as Physician (Cardiology) ADARSH Stevens as Nurse Practitioner (Nurse Practitioner) documented in this en counter Procedure Notes Khurram Canas MD - 05/19/2018 4:54 PM PDTAssociated Order(s): CV CARDIAC PROCEDURECORON MACIEJ CATH and INTERVENTION REPORT PATIENT NAME/: Bob Will, (1955) DATE OF SERVICE: 05/19/2018 PRIMARY ASSEMBLY MACHINE OPERATOR: Randy Figueroa MD MANAGED CARE NURSE: Khurram Canas MD PROCEDURES PERFORMED: Single-Vessel Coronary Intervention: - Intra-vascular ultrasound (IVUS) and angioplasty only to the LM into the ostial circumfl ex - Instantaneous Wave-Free Ratio (iFR) to the left anterior descending Left Heart Cath Right Heart Cath Impella Supported PCI Indications: Coronary artery disease and cardiomyopathy Brief Description of Procedure Written consent was obtained from the patient. Prior to the start of this procedure a 'amy e out' had been preformed and the patient had been prepped and draped in the usual sterile f ashion. Conscious sedation was used for this procedure. Using SonoSite guidance to visualiz e the vessel, the modified Seldinger technique was used and the sheath was placed in the fem oral artery, it was a 7 Fr. sheath on the left side. A 7 Fr venous sheath was also placed i n the left femoral vein and using a balloon tipped catheter a right heart cath was done with thermal outputs obtained (no Alessandro due to his O2 needs). All equipment was exchanged over a wire and carefully aspirated and flushed. For P2Y12 inhibition the patient was already on Plavix, so no bolus was given and heparin was administered for anticoagulation. A CLS 4.0 g uiding catheter was used for this procedure. A CLS 3.5 guider was also tried, but did not w ork well. First a FlowWire was placed in the left anterior descending and iFR was negative at 0.94. Then a BMW interventional wire was used to cross the lesion in the circumflex A n IVUS-guided intervention was performed in the standard fashion. Initially, a 2.5 regular balloon was used, then a 3.5 NC, then IVUS and finally a 3.75 NC. Each balloon inflation wa s done in the circumflex, hanging back into the left main. He became more hypotensive with each balloon inflation. At the conclusion an angiogram and follow-up IVUS showed a good res ult. The wire and guide were removed and the sheath was removed and hemostasis obtained wi th an Angio Seal. Impella: Indications - LM/circ stenosis with EF 25% and hypotension in a patient with acute on chron ic systolic heart failure Placement - using SonoSite and a micro cath a 14 [place] was eventually placed in the right femoral artery after 2 PerClose devices had been deployed. A pigtail was used to cross the aortic valve and left heart cath was done to assess LVEDP. The device was then placed in th e standard fashion and used for hemodynamic support throughout this intervention, therapeuti c ACT's were archived. The Impella was placed prior to the start of the intervention and pr ior to placing the guiding catheter. Removal - at the completion of the intervention, after the guide was removed, the Impella w as weaned down. It was then removed in standard fashion and the sheath removed and hemostas is archived with the 2 previously deployed PerClose devices. MODERATE SEDATION: I was present in the room when moderate sedation was initially administered to the patient at 1525 and continued until 1657. The trained nursing staff that monitored the patient and administered the medication, have been documented in the case log, please see that separate report for details. Also recorded in the case log are the total amounts and routes of the se dation medications used for this patient. The patient s vital signs, level of consciousne ss, neurological, cardiovascular, and pulmonary status at the conclusion of the procedure we re stable. Pre and post-sedation activities were reviewed by me. COMPLICATIONS: None Contrast: 55cc IVUS/FFR/iFR: iFR of the left anterior descending was 0.94 and IVUS of the circ and LM pos t angioplasty showed a good lumen area. CONCLUSIONS: 1. 95% stenosis of the ostial circumflex treated with angioplasty only with a 3.75 x 16 NC balloon with <10% residual stenosis. The balloon was 2. iFR of the LAD was negative at 0.94 PLAN: 1. In addition to secondary risk factor modification, Mr. Will will be advised to be o n aspirin indefinitely and dual anti-platelet therapy with a P2Y12 inhibitor for at least th e next 3 months. 2. Continued diuretics for heart failure and med treat for his ischemic CMP 3. Repeat labs in AM to reassess his chronic renal failure Thank you for allowing [facility] to be involved in the care of this patient. Please call with any questions . [facility] PRIMARY CARE PROVIDER: Jeet King MD Performed at [facility] documented in this encounter Consult Notes Ghada Jeffrey RN - 05/20/2018 1:05 PM PDTPatient was evaluated for outpatient cardiac jennie ab but is not eligible due to: - no interest in attending a program. arli Meade MD - 05/17/2018 10:31 PM PDTFo rmatting of this note might be different from the original. PATIENT NAME: Bob Will : 1955: AGE: 62 y.o. PRIMARY CARE: Jeet King MD REFERRING: Dr Devon Trujillo, Dr Khurram Canas, Dr Macho Meade MD [facility] Inpatient Advanced Heart Failure Consult Date of Service: 05/17/2018 IMPRESSION & RECOMMENDATIONS It was a pleasure to see Mr Estrella at the request of Missael Marshall and Arnulfo. In [facility], Mr Will is a 62 y.o. year old male with history of HTN, HL, LOUISA, tobacco use (quit >1yr), and severe MVCAD s/p STEMI c/b in-hospital repeated cardiac arrest with PTCA of LM i nto LCX and LAD c/b anterior wall infarction and early ISRS of LM-LCX stent twice. Mr Familia rodriguez shares my concern that he will likely not have much recoverable myocardial function with revascularization, and even if he did, that it may not last with his history of aggressive ISRS, but we both hope he may have resolution or improvement in exertional dyspnea. He is in terested in life sustaining therapies such as heart transplant and LVAD if he is not going t o benefit from revascularization, or does not do well with attempt revasc. 1. Will participate in discussion at complex cardiac case team conference Weds 2. Suggest PFTs for dyspnea eval 3. Consider additional workup of PAD as pre-procedure testing 4. Will discuss with transplant team as patient may need transplant and/or durable MCS eval in not so distant future pending durability of a positive clinical response to successful r evascularization versus expedited eval if any complications during or after possible revasc. 5. Consider evaluation of cervical neck disease this admit if elective intubation or surger y being consider It was a pleasure to see Bob Will at the request of Missael Marshall and Arnulfo . Thank you for allowing us to participate in this patient's care. My impressions and ronald mmendations have been discussed with Dr Canas, Dr Arredondo and Marimar Torres BATCH TESTER, as well as t he patient. The advanced heart failure service will continue to follow along. Should you h ave any questions or concerns, I can be reached through the office or answering service at [phone]. Carli Meade MD MPH [facility] [place] [facility] Consult Question: Does Mr Will need transplant or LVAD at this time or in near future ? HPI: Mr Will is a 62 y.o. year old male with history of HTN, HL, LOUISA, tobacco use (eric t >1yr), and severe MVCAD s/p STEMI c/b in-hospital repeated cardiac arrest with PTCA of LM into LCX and LAD c/b anterior wall infarction and early ISRS of LM-LCX stent twice. Ashok pres ents for evaluation of refractory progressive dyspnea with minimal exertion. Ashok reports nor mal age appropriate activity until he developed untable angina early March 2017. He presented with acute STEMI and per notes and his report, had repeat VF arrest in the [employer] requiri ng emergent PCI of LM into both LAD and a large co-dominant LCX. He was then supported by [place] [facility] and [facility] peripherally at [facility]. He was seen in follow up with eventual WEI leading to f inding of persistent moderate to severe LV systolic dysfunction, stage C HFREF, LBBB and ear ly ISRS of LM-LCX requiring repeat PTCA to LCX and Medtronic FIELD SERVICES MANAGER-D. Since then, Ahsok has not had durable improvement. Sometimes, he can walk more easily than others. He has not had sign ificant improvement in functional status. He is very worried about recurrent stent failures. He had some issue with fluid retention and based on his 's advice (retired RN), he has been doing better with sodium and fluid restriction. One red flag that we briefly discussed is his chronic neck pain and need for narcotics, how ever he reports this is a long standing issue and he'd welcome non-narcotic therapy if it he lped however reports that surgeons refuse to help him due to the nature of the cervical spin e disease and proximity to spinal cord. Pertinent positive ROS: fatigue, dyspnea on exertion, easy fluid retention, abdominal diste nsion with extra salt and fluid intake, health related anxiety, significant chronic neck cristino n (requires narcotics) Pertinent negative ROS: fevers, chills, chest pain with activity, unstable angina, flash pu lm edema, orthopnea, PND, edema, rash, skin breakdown, tobacco use, drug use Rest of 12 point review of systems negative OBJECTIVE: No Known Allergies SCHEDULED MEDS: aspirin 81 mg Oral Daily atorvaSTATin 80 mg Oral Nightly cholecalciferol 1,000 Units Oral Daily clopidogrel 75 mg Oral Daily famotidine 40 mg Oral Daily furosemide 40 mg Oral Daily gabapentin 300 mg Oral TID heparin 5,000 Units Subcutaneous 2 times per day metFORMIN 500 mg Oral BID WC metoprolol succinate 25 mg Oral BID pantoprazole 40 mg Oral QAM AC sacubitril-valsartan 1 tablet Oral BID spironolactone 12.5 mg Oral Daily IV INFUSIONS: PHYSICAL EXAM Tele: SR Mccallan: n/a BP 99/56 | Pulse 72 | Temp 36.4 C (97.5 F) (Temporal) | Resp 18 | Ht 1.753 m (5' 9" ) | Wt 96 kg (211 lb 10.3 oz) | SpO2 95% | BMI 31.25 kg/m Body mass index is 31.25 kg/m. GENERAL: Well developed well nourished appearing stated age. No apparent distress HEENT: Atraumatic normocephalic head. DEMIAN, sclera clear; sinuses nontender to light palp ation; oropharynx and conjunctivae are clear. Mucous membranes moist. NECK: Soft supple neck, no masses or submandibular or cervical lymphadenopathy. BACK: No spinal or paraspinal tenderness, no flank pain PULM: Good inspiratory effort with no crackles or wheezes. CARDIAC: JVP 8, neg HJR. No parasternal lift. PMI is focal and non-displaced. Normal S1 a nd S2. Regular. No murmurs, rubs or gallops. ABDOMEN: Soft, non-tender, nondistended abdomen with normal bowel sounds EXTREMITIES: No edema or cyanosis however feet not warm despite two layers of pants PULSES :Carotids are 2+ and brisk bilaterally without bruits. Radial pulses 2+ and symmetri c. Distal pulses in feet nonpalpable, RFA 1+, LFA 1+ w/bruit. NEUROLOGIC: Alert and oriented to person, place, time, and event. Grossly nonfocal cranial nerve exam. SKIN: No rashes or skin breakdown. MUSCULOSKELETAL: normal ambulation and range of motion in all extremities PSY: Normal mood and affect, reasonable insight and judgment demonstrated during visit, goo d eye contact Pertinent Tests: I have reviewed all available imaging studies in [employer] and pushed them into [employer] . Of note, I susepct his nuclear viability study supports LCX revasc as his anatomy is codom inant and the LCX provides significant inferior circulation. He does not have evidence of vi ability or perfusion to anterior (LAD) territory. It does appear he may have lost a high antonio g vs ramus at time of PCI in 09/2017. Echo from [facility] very limited, likely due to study being transferred and images being downs ized. No evidence of marked valve pathology. LVEF globally severely depressed. No evidence o f aneurysm or thrombus w/use of definity. All Component Based Labs 05/17/18 0348 ANION GAP 10 B-TYPE NATRIURETIC PEPTIDE 224 Comment: Performed by [facility] [address] [place] [address] (H) BUN 27(H) Calcium 8.7 Chloride 105 Carbon dioxide 27 Creatinine 1.89(H) Estimated GFR 37 Comment: eGFR<60 consistent with impaired kidney function. Performed by [facility] [address] [place] [address] (L) GLUCOSE 103(H) K 4.6 NA 142 Lab Results Component Value Date WBC 9.6 05/15/2018 HGB 13.8 05/15/2018 PLT 185 05/15/2018 ALT 57 05/14/2018 AST 29 05/14/2018 NA 142 05/17/2018 K 4.6 05/17/2018 CREA 1.89 (H) 05/17/2018 BUN 27 (H) 05/17/2018 INR 1.10 10/03/2017 As part of my care, I reviewed the past 24hrs notes, vitals, labs and diagnostic studies. I have also reviewed the allergies, medications and orders. All of the patient's concerns and questions were addressed to their apparent satisfaction. This note was dictated using voice recognition software. If you or the patient have any que stions, please do not hesitate to contact me. Signed by: Carli Meade MD MPH [facility] 05/17/2018, 22:31 Twan Doyle Chaplain - 05/16/2018 12:04 PM PDTAssociated Order(s): IP CONSULT TO SPIRITUAL CARESpiritual Care Encounter (CARE note): C Critical information/concern: Responded to spiritual care consult; per RN, pt has been t earful, has "many stresses in his life," and needed someone to talk to. When I visited, pt w as hopeful and [id number]. He shared that he has been in and out of the hospital for the last 2 years. Pt lives in [place], and said it's been stressful for his , who is here in [place] in their RV, but is staying in an expensive RV park. Pt said he is waiting to he ar what the medical team will advise in his case; his situation will be presented to the car diac team on Thursday, 05/19. Pt said he is committed to doing what he needs to do to get be tter and have more years of life. He has 5 grandchildren, 12yo to 5months, who are very impo rtant to him, and whom he said he wants to seen grown. Pt shared his own father at the age of 61. A Action taken: I provided empathic presence, attentive listening, normalization of feelin gs, and general encouragement. R Resources: Pt said he is committed to doing what the medical team advises to protect and improve his health. His and rest of family are important to him and give his life mean ing and hope. E Evaluation/Plan: Pt responded well to affirmation and visit. He would benefit from follo w-up visits. I will refer pt to alyson hayes for follow-up. guzman Dana ADARSH Mai - 05/15/2018 12:21 PM PDT [facility] PATIENT NAME: Bob Will : 1955: AGE: 62 y.o. ADMISSION DATE: 05/13/2018 PRIMARY CARE: Chato Matson MD REFERRING PROVIDER: Dr. Trujillo DATE OF SERVICE: 05/15/2018 INPATIENT CONSULTATION REASON FOR CONSULT: Possible evaluation for OHT and/or LVAD HISTORY OF PRESENT ILLNESS 62 y.o. year old male with Problem List and Overview as noted below. He has multiple cardi ac risk factors including hypertension, hyperlipidemia, LOUISA, tobacco abuse and strong family history for early coronary disease with his father having myocardial infarction in his hillary y 60s. He denies ETOH abuse. He also denies lower extremity claudication. This 62-year-old white male has an extensive cardiac history which initiated in March 2017 w hen he first presented to [facility] with an acute anterior STEMI. He was found to have severe left main disease and underwent ANY to the distal LM/LAD and LM/LCX. At that t nhi he was in critical condition requiring placement of an IABP and multiple pressors. He w as then transferred to [facility] for further treatment and possible surgical revascularization. His LV function was also declined at 35-40%. His records do reflect that in May 2017 his LV function returned to normal with an EF of 50-55%. The patient states he has been on a very rough road since his initial myocardial infarction . He describes being readmitted in September 2017 with pneumonia. At that time he was also f ound to have a new LBBB and was diagnosed with recurrent anterior ID along with his pneumoni a. His troponin peaked at 26.6. He also experienced hypoxic respiratory failure at that ti me. A 2-D echocardiogram showed his LV function once again declined to 40%. A repeat coron maciej angiogram was also performed showing 50% stenosis distal bifurcation lesion within the s tent, 70% ostial in-stent stenosis of LAD with grade 1 flow to distal LAD, 95-99% ostial and proximal in-stent stenosis of LCX, no significant RCA disease. Plans were made to transfer the patient to [place] but he declined and was transferred to [facility]. It appears that t he patient did require support with the placement of an Impella. Repeat Alvaro ANY to ostial LCX and PTCA to distal LM into LAD along with removal of the Impella was performed at [facility]. Also, during that admission a Medtronic biventricular ICD was implanted. The patient states that he continued to have episodes of decompensated heart failure. He o nce again developed recurrent dyspnea and was admitted to [facility]. After 2 week s of therapy he was then transferred to [facility]. While there a repeat viability study was pe rformed continuing to show no viability to the anterior wall. He also underwent a repeat co ronary angiogram showing tight restenosis of the ostial LCX. He was then transferred to [facility] for possible surgical revascularization with LVAD support. The surgical team has reviewed his angiogram and feel the patient may benefit from additional PCI and wor kup for possible OHT and/or LVAD At this point the patient states he continues to feel fatigued. He states his dyspnea has significantly improved. He continues to need supplemental oxygen at night although he denie s actual orthopnea. He feels as if his lower extremity edema has resolved. He continues to receive GDMT for which he is tolerating. CURRENT ASSESSMENT AND PLAN 1. Coronary artery disease 03/15/17 acute anterior STEMI, complicated by cardiogenic shock, intubation 03/15/17 coronary angio: 90% LM extending into LAD, 100% ostial LAD, 90% ostial LCX with LM dissection, diffuse RCA disease. Subsequent Xience ANY to distal LM/LAD and LM/LCx bifur cations 03/2017 transferred to [facility] in critical condition with IABP and multiple pressors 05/07/17 EF 35-40%. Grade 1 diastolic dysfunction. Mild MR. Thinning and severe hypoki nesis of the entire anterior and anterior septal lipscomb 06/04/17 2-D echo: EF 50-55%. Mild hypokinesis of anterior wall. No significant valvula r abnormalities 2017 recurrent anterior myocardial infarction, peak troponin 26.6, new LBBB 10/03/17 coronary angio: 50% distal bifurcation lesion with in-stent, 70% ostial in-stent stenosis of LAD with grade 1 flow to distal LAD, 95-99% ostial and proximal in-stent stenos is of LCX, no significant RCA disease 10/15/17 Alvaro ANY to ostial LCX, PTCA to distal LM into LAD, removal of Impella ([facility]) 10/2017 viability study showing no viability to the mid to distal anterior/interventricul ar septum and apex 04/2018 nuclear stress test showing normal or small perfusion defect at rest with no de la cruz ge with stress 05/09/18 viability study showing no viability in the anterior wall or septum. Positive vi ability to the inferior wall 05/2018 LHC: Tight restrictive lesion in the ostial LCX (as reviewed by a [facility] surgical team) 2. Ischemic cardiomyopathy Please refer to coronary artery disease 3. Chronic systolic heart failure 03/2017 initially diagnosed with ischemic cardiomyopathy, EF 35-40% 10/2017 implantation of biventricular Medtronic ICD with no history of ICD firings Multiple emergency room visits due to CHF exacerbation 11/2017 2-D echo: EF 35-40%. Severe hypokinesis in entire anterior and anterior septal r egions. Mild MR and mild TR, PA 35-40 mmHg 03/2018 2-D echo: EF 30-35%. Mild LVH. Unchanged hypokinesis of anterior wall. Grade 1 diastolic dysfunction. Mild MR 05/01/18 2-D echo showing EF 25-30% with apical akinesis. 4. Hypertension 5. Hyperlipidemia 6. LOUISA Does not utilize CPAP Continued desaturation hs 7. Tobacco abuse Quit smoking 03/2017 at that time was smoking 2 ppd 8. Diabetes Denies history of diabetes but his records reflect he is receiving Glucophage 9. Gastritis / duodenitis 10/05/17 EGD after NG trauma: Antral gastritis and duodenitis with 2 linear ulcerations a long the lesser curvature. 2 clips placed to larger vessel PLAN: Will have Dr. Walker and/or Dr. Meade review the patient's recent coronary angiogram Continue current GDMT, no need for inotropic support at this time Will continue to review patient's possible candidacy for OHT and/or LVAD PROBLEM LIST: Active Problems: Coronary artery disease involving cantwell coronary artery of cantwell heart without angina p ectoris Ischemic cardiomyopathy FIELD SERVICES MANAGER-D (AICD) Medtronic 10/16/17 [facility] Chronic systolic congestive heart failure COPD (chronic obstructive pulmonary disease) Past Medical History: Diagnosis Date Acute anterior wall ID (HCC) 04/03/2017 Angiography and stent 03/15/2017 successful [...] stenosis on 03/15/2017 by Monse Ross MD. LOUISA (obstructive sleep apnea) Past Surgical History: Procedure Laterality Date CARDIAC CATHERIZATION N/A 03/15/2017 Procedure: CV Cor Angio; Surgeon: Monse Ross MD; Location: [facility] CV LAB CARDIAC CATHERIZATION N/A 10/03/2017 Procedure: CV Cor Angio; Surgeon: Delmer Dai MD; Location: [facility] CV LAB ELBOW SURGERY Left GALLBLADDER SURGERY NASAL SEPTUM SURGERY UPPER GASTROINTESTINAL ENDOSCOPY N/A 10/05/2017 Procedure: EGD; Surgeon: Terry Weir MD; Location: [facility] MEDICAL PROCEDURE UNIT No family history on file. Social History Social History Marital status: Spouse name: N/A Number of children: N/A Years of education: N/A Occupational History Not on file. Social History Main Topics Smoking status: Former Smoker Years: 45.00 Types: Cigarettes Smokeless tobacco: Former User Quit date: 03/15/2017 Alcohol use No Drug use: No Sexual activity: No Other Topics Concern Not on file Social History Narrative No narrative on file ALLERGIES No Known Allergies Review of Systems Constitutional: Positive for malaise/fatigue. HENT: Negative. Eyes: Negative. Respiratory: Positive for shortness of breath. Cardiovascular: Positive for leg swelling and PND. Gastrointestinal: GI bleed 09/2017 Genitourinary: Negative. Musculoskeletal: Positive for myalgias. Skin: Negative. Neurological: Positive for weakness. Neuropathy Endo/Heme/Allergies: Negative. Psychiatric/Behavioral: Negative. WEIGHT & VITALS Admit Weight: Weight: 94.6 kg (208 lb 8.9 oz) Body mass index is 30.8 kg/m./Body surface area is 2.15 meters squared. LATEST VITALS: BP 112/60 | Pulse 74 | Temp 36.2 C (97.1 F) (Temporal) | Resp 16 | Ht 1.753 m (5' 9") | Wt 94.6 kg (208 lb 8.9 oz) | SpO2 94% | BMI 30.80 kg/m TELE: Vpaced PHYSICAL EXAM General: in NAD, well developed, well nourished HEENT: Normocephalic. FRANCISCO, oral mucosa negative for pallor or cyanosis. No scleral icteru s NECK: Supple, 5 cm JVD, no bruits or thromegaly. No HJR Resp: respiratory effort normal and symmetrical with no crackles, rhonchi or wheezes CARDIAC: Regular rate and rhythm with normal S1/S2. No murmurs, rub or gallop ABDOMEN: Soft, nontender, nondistended with normal, active bowel sounds. No hepatosplenomeg inga EXTREMITIES: No pedal edema, clubbing or cyanosis PULSES: R 2+ DP/PT L 2+ DP/PT NEURO: Normal affect. Oriented to person, place and time SKIN: Warm, dry with no rashes or breakdown MUSC/SKELETAL: Back negative for scoliosis/kyphosis. Muscle strength equal bilat. Ambulat es with a cane SCHEDULED MEDS: aspirin 81 mg Oral Daily atorvaSTATin 80 mg Oral Nightly cholecalciferol 1,000 Units Oral Daily clopidogrel 75 mg Oral Daily famotidine 40 mg Oral Daily furosemide 20 mg Oral Daily gabapentin 300 mg Oral TID heparin 5,000 Units Subcutaneous 2 times per day metFORMIN 500 mg Oral BID WC metoprolol succinate 25 mg Oral BID pantoprazole 40 mg Oral QAM AC sacubitril-valsartan 1 tablet Oral BID LABS Component Value Date/Time WBC 9.6 05/15/2018825 HGB 13.8 05/15/2018825 HCT 40.5 05/15/2018825 HCT 43.3 10/07/2017 0351 PLT 185 05/15/2018825 PLT 178 10/07/2017350 MCV 92.4 05/15/2018825 NA 138 05/15/2018825 K 4.6 05/15/2018825 CL 105 05/15/2018825 CO2 24 05/15/2018825 BUN 24 05/15/2018825 CREA 1.79 (H) 05/15/2018825 CALCIUM 8.9 05/15/2018825 MG 1.9 10/07/2017350 AST 29 05/14/2018926 ALT 57 05/14/2018926 ALKPHOS 78 05/14/2018926 BILITOT 0.5 05/14/2018926 EGFR 39 (L) 05/15/2018825 TOTALPROTEIN 7.2 05/14/2018926 ALBUMIN 4.4 05/14/2018926 PROTIME 14.1 (H) 10/03/2017 1129 INR 1.10 10/03/2017 112 BNP 495 (H) 10/03/2017 1129 Signed by: ADARSH Sr 05/15/18, 1300 This note or portions of this note have been dictated using [employer] voice recognition s oftware. It will be reviewed for major content but may contain mistakes due to difficulties with voice recognition software. Devon Ricks MD - 05/14/2018 1:43 PM PDT Attestation signed by Devon Trujillo MD at 05/14/2018 16:52 to a previous version Addendum: I have reviewed the note below, personally reviewed the available laboratory and imaging st udies and examined the patient. I agree with the assessment below, with the following additi on. Mr. Will had a massive ID and underwent left main/LAD/circumflex stenting and was supp orted with ECMO. He ultimately survived that episode quite well. In October he underwent repeat catheterization and stenting of the ostial circumflex along with balloon angioplasty of the left main and proximal LAD. Surgery was considered at that time but primarily shruthi e of non-viability of the LAD territory surgery was felt to be too high risk for the reward. This was all done in [place] at [facility]. A couple of weeks ago he presented with worsening heart failure having weight gain and prog ressive dyspnea over a couple of weeks prior to his admission. His ejection fraction was fo und to be reduced to 20-25%. He underwent repeat coronary angiography at [facility] and was fou nd to have tight restenosis of the ostial circumflex. As before there was no significant di sease in the right coronary artery and at least to my review the LAD appeared to be widely p atent as well. Note these angiograms are now available on [facility]ent[employer]. Nuclear studies were do ne as well which suggested infarction of the anterior wall and apex without any hibernating myocardium but did suggest inferior and I believe posterior viability. Cardiac surgical con sultation was obtained from Dr. Gonzales recommended coronary bypass grafting with LVAD suppo rt. The patient therefore was transferred to [place] and admitted this morning by Dr. Arredondo. With regard to strategy at this point I'm not sure that very high risk coronary bypass eligio ting just to revascularize the circumflex is going to be the best plan. I think we should c onsider once again percutaneous intervention on the ostial circumflex. The concern of cours e is that this may only provide temporary improvement. In addition, I have concerns about w hether revascularization will accomplish enough to truly improve this gentlemen's LV functio n enough to keep him out of heart failure. At this point I think it is imperative that we get a complete advanced heart failure team e valuation to sort out what our options for Mr. Will will be. We need to know if he is ultimately a candidate for cardiac transplantation and whether he is a candidate for an LVAD either as bridge to transplant or destination therapy. Certainly if we ever contemplate mckeon rgical revascularization we would need to have the bailout options clearly defined before at tempting CABG. I've asked Dr. Arredondo to have the interventional cardiologists review the angiograms for p ossible circumflex PCI potentially to "by some time" while we are sorting out his advanced h eart failure options. I've also asked the Transplant & Advanced Heart Failure team to begin a formal evaluation. Electronically signed by: Devon Trujillo M.D. CardioThoracic Surgery [facility] 05/14/2018 16:28 [facility] Cardiothoracic Surgical Consult Date of Consultation: 05/14/2018 NAME/AGE/: Bob Will 62 y.o. male (1955) ADMISSION DATE: 05/13/2018 Primary Caster Operator: Dr. Figueroa Requesting/Referring Physician: Dr. Arredondo Primary Care Provider: Chato Matson MD REASON FOR CONSULTATION 2-vessel CAD History of Present Illness Mr. Will is a 62 y.o. male with a history of CAD that involves an ID with cardiac arre st, IABP, and even ECMO in March of last year. At that time, he received stents to his left m ain, LAD, and circumflex arteries. He subsequently underwent repeat stenting of the ostial circumflex in October 2017. He was transferred to [facility] yesterday for evaluation for CABG after a cath last week showed significant in-stent restenosis at the take-offs of his LAD and circu mflex arteries. He apparently also had a nuclear medicine stress test, echocardiogram, and v iability study at [facility] prior to transfer here and our office is working on getting those r ecords. LVEF has reportedly declined from 40% to 30%. He and his are fairly anxious and were upset to here that I was visiting them for "con sideration" of CABG, but when I explained how our consultation process worked, their moods i mproved and we were able to carry on with the rest of the consult. He has a history of smoki ng, but stopped at the time of his ID last year. Aside from his arrest, he's never had any r espiratory problems that have required intervention, does not use any inhalers, and has good activity tolerance. thinks she may have been told he could have had a stroke at the ti me of his ID, but from what I gather this was probably during the acute setting around the [facility] he was on ECMO and she's never heard mention of this again. No personal history of kiara simental ASSESSMENT 1. Coronary artery disease 05/03/2018: Distal LM / takeoffs of LAD + circumflex. The left main coronary artery is previously stented. At the distal left main, there is rest enosis involving the takeoff of both LAD and left circumflex. The left circumflex branch has a 95-99% restenosis. The left anterior descending is more difficult to evaluate for exactly how tight it is, but there is what is probably pannus formation inside the LAD that is part ially occluding. The right coronary artery has minor, nonobstructive disease and is a large, dominant artery. 03/15/2017: ID, cardiogenic shock -> IABP, ECMO. Stents to left main, LAD, circumflex. 2. Ischemic cardiomyopathy History of cardiac arrest 03/15/2017. AICD in place, no defibs since his initial defibrillati ons at time of arrest. LVEF 40%, decline to 30% 3. Acute renal insufficiency in chronic kidney disease Since the time of his ID. Serum Cr 1.8 today, baseline unknown. STS Score Assuming no valvular or carotid disease; NYHA class II Risk of Mortality: 1.122% Morbidity or Mortality: 16.029% Long Length of Stay: 5.672% Short Length of Stay: 46.949% Permanent Stroke: 0.595% Prolonged Ventilation: 9.374% DSW Infection: 0.51% Renal Failure: 4.59% Reoperation: 5.658% RECOMMENDATIONS 1. Since Plavix was given today, this would effect timing of surgery. Will defer this until we make a decision. 2. Dr. Trujillo's coordinator will obtain most recent imaging including cath and viability miky dy. 3. Decision regarding surgery from Dr. Trujillo, possibly today depending on availability of s irvin. Review of Systems Consitutional - No night sweats, sleeping well HEENT - Denies tinnitus, vertigo, visual changes, headache, or epistaxis Cardiovascular - Denies chest pain, palpitations Respiratory - Mild, stable WEI GI - Denies nausea, abdominal discomfort, constipation/diarrhea, bloody/black stool Musculoskeletal - Denies significant musculoskeletal pain or weakness Endocrine - Denies excessive thirst, urination, hunger. Denies intolerance to heat or cold. Hematologic - Denies abnormal bleeding. Allergy - Medication allergies as listed. Infectious disease - Denies symptoms of active infection, denies recurrent infections. Family History: No family history on file. Social History: Social History Social History Marital status: Spouse name: N/A Number of children: N/A Years of education: N/A Occupational History Not on file. Social History Main Topics Smoking status: Former Smoker Years: 45.00 Types: Cigarettes Smokeless tobacco: Former User Quit date: 03/15/2017 Alcohol use No Drug use: No Sexual activity: No Other Topics Concern Not on file Social History Narrative No narrative on file Tobacco History: History Smoking Status Former Smoker Years: 45.00 Types: Cigarettes Smokeless Tobacco Former User Quit date: 03/15/2017 OBJECTIVE Last Vitals: Pulse: 76 BP: 103/55 Resp: 18 on SpO2: 96 % on room air Temp: 35.7 C (96.2 F) Telemetry: P tracking, 100% V-paced. 24 hour I/O: Weight: Intake/Output Summary (Last 24 hours) at 05/14/18 1343 Last data filed at 05/14/18 0626 Gross per 24 hour Intake 400 ml Output 850 ml Net -450 ml Wt Readings from Last 3 Encounters: 05/13/18 94.6 kg (208 lb 8.9 oz) 04/14/18 100.6 kg (221 lb 12.5 oz) 04/09/18 98 kg (216 lb) Admission Weight: Weight: 94.6 kg (208 lb 8.9 oz) Physical Exam Constitutional - Alert and oriented. In no acute distress. HEENT - Normocephalic/atraumatic. Sclerea are white, conjunctivae are pink and moist. Nares are patent. Trachea is midline. Oral mucosa is pink and moist. Cardiovascular - Regular rate and rhythm with normal S1/S2. No murmur, rub, or gallop. Respiratory - Lung sounds are clear to auscultation bilaterally. Chest excursion is symmetr ical without the use of accessory muscles. GI - Possitive bowel sounds. Soft and non-tender. Extremities - Distal pulses are 2+. Distal extremities are pink and warm. No significant lo wer extremity edema. Neurologic - No focal deficits. Patient Active Problem List Diagnosis Date Noted PAD (peripheral artery disease) ([facility]) Priority: High Note Last Updated: 01/06/2018 Segmental pressures 11/24/17 Abnormal left ankle brachial index of 0.91 consistent with s gurvinder segment disease. COPD (chronic obstructive pulmonary disease) (HCC) 05/14/2018 Actinic keratosis 04/14/2018 Basal cell carcinoma of lower extremity 04/14/2018 Benign neoplasm of skin 04/14/2018 Hypercholesterolemia 04/14/2018 Metabolic syndrome X 04/14/2018 Neoplasm of uncertain behavior of skin of trunk 04/14/2018 Open wound of thigh 04/14/2018 Open wound of trunk 04/14/2018 Polyp of colon 04/14/2018 GERD (gastroesophageal reflux disease) 11/12/2017 Tachycardia 10/20/2017 Note Last Updated: 10/20/2017 Electrophysiology Study 10/16/17 shows positive EP study for inducible ventricular tachycar antonio. FIELD SERVICES MANAGER-D (AICD) [employer] 10/16/17 [facility] Wilner 10/19/2017 Note Last Updated: 11/11/2017 MODEL NAME MODEL# SERIAL# DATE IMPLANTED GENERATOR Medtronic [id number] 10/16/17 RV LEAD Medtronic [id number] 10/16/17 A LEAD Medtronic [id number] 10/16/17 Coronary Sinus LEAD Medtronic [id number] 10/16/17 Indication: ischemic cardiomyopathy with reduced EF 30-35% Implantable defibrillator reprogramming/check 10/19/2017 H/O atrial flutter 10/19/2017 Chronic systolic congestive heart failure (HCC) 10/17/2017 Paroxysmal atrial flutter (HCC) 10/12/2017 Pulmonary edema 10/03/2017 Ischemic cardiomyopathy 05/26/2017 Note Last Updated: 04/05/2018 S/P [employer] FIELD SERVICES MANAGER-D 10-16-17 Dr Darby, [facility] Pet Scan 10/13/17 shows No [...] continued to deteriorate. Coronary artery disease involving cantwell coronary artery of cantwell heart without angina pectoris 04/06/2017 Note Last Updated: 01/06/2018 Cardiac Cath ordered by Arya Christian 10/15/17 shows successful percutaneous coronary co ntinue aggressive cardiac risk factor management , intervention to the ostial left circumfle x with one 3.0 x 18 mm resolute alvaro drug - eluting stent , successful percutaneous [...] with normal respiratory collapse. Acute anterior wall ID (HCC) 04/03/2017 Note Last Updated: 10/20/2017 Transthoracic [...] in some time -lido patches added 03/24 Abdominal aortic aneurysm (AAA) without rupture (HCC) 03/18/2017 Note Last Updated: 04/14/2018 Last Assessment & Plan: Disclosed by ultrasound 03/17. 3.9cm at widest. Infrarenal. Coronary atherosclerosis 03/15/2017 Family history of sudden 06/18/2009 Mixed hyperlipidemia 04/16/2009 Nocturia 04/16/2009 Benign essential hypertension 03/15/2009 Benign prostatic hyperplasia without urinary obstruction 03/15/2009 Family history of malignant neoplasm of gastrointestinal tract 03/15/2009 Family history of stroke 03/15/2009 Impotence of organic origin 03/15/2009 Neck pain 09/07/2008 Past Medical History: Past Medical History: Diagnosis Date Acute anterior wall ID (HCC) 04/03/2017 Angiography and stent 03/15/2017 successful [...] stenosis on 03/15/2017 by Monse Ross MD. LOUISA (obstructive sleep apnea) Past Surgical History: Past Surgical History: Procedure Laterality Date CARDIAC CATHERIZATION N/A 03/15/2017 Procedure: CV Cor Angio; Surgeon: Monse Ross MD; Location: [facility] CV LAB CARDIAC CATHERIZATION N/A 10/03/2017 Procedure: CV Cor Angio; Surgeon: Delmer Dai MD; Location: [facility] CV LAB ELBOW SURGERY Left GALLBLADDER SURGERY NASAL SEPTUM SURGERY UPPER GASTROINTESTINAL ENDOSCOPY N/A 10/05/2017 Procedure: EGD; Surgeon: Terry Weir MD; Location: [facility] MEDICAL PROCEDURE UNIT Allergies: No Known Allergies Current Medications: Current Facility-Administered Medications Medication Dose Route Frequency Provider Last Rate Last Dose aspirin EC tablet 81 mg 81 mg Oral Daily Macho Arredondo MD 81 mg at 05/14/18 1016 atorvaSTATin (LIPITOR) tablet 80 mg 80 mg Oral Nightly Macho Arredondo MD 80 mg at 0 05/13/18 2216 cholecalciferol (VITAMIN D-3) tablet 1,000 Units 1,000 Units Oral Daily Macho Arredondo MD 1,000 Units at 05/14/18 1014 clopidogrel (PLAVIX) tablet 75 mg 75 mg Oral Daily Macho Arredondo MD 75 mg at 05/14 1017 famotidine (PEPCID) tablet 40 mg 40 mg Oral Daily Macho Arredondo MD 40 mg at 1015 furosemide (LASIX) tablet 20 mg 20 mg Oral Daily Macho Arredondo MD 20 mg at 8 1016 gabapentin (NEURONTIN) capsule 300 mg 300 mg Oral TID Macho Arredondo MD 300 mg at 0 05/14/18 1310 heparin 5,000 units/mL injection 5,000 Units 5,000 Units Subcutaneous 2 times per day Macho Arredondo MD 5,000 Units at 05/14/18 1023 HYDROcodone-acetaminophen (NORCO) 5-325 mg per tablet 2 tablet 2 tablet Oral Q4H PRN J ohshiraz Arredondo MD 2 tablet at 05/14/18 1310 melatonin tablet 5 mg 5 mg Oral Nightly PRN Macho Arredondo MD 5 mg at 05/13/18 2217 metFORMIN (GLUCOPHAGE) tablet 500 mg 500 mg Oral BID WC Macho Arredondo MD 500 mg at 05/14/18 1017 metoprolol succinate (TOPROL-XL) ER tablet 25 mg 25 mg Oral Daily Macho Arredondo MD 25 mg at 05/14/18 1015 nitroglycerin (NITROSTAT) SL tablet 0.4 mg 0.4 mg Sublingual Q5 Min PRN Macho Arredondo MD pantoprazole (PROTONIX) DR tablet 40 mg 40 mg Oral QAM AC Macho Arredondo MD 40 mg a t 05/14/18 0623 sacubitril-valsartan (ENTRESTO) 49-51 mg per tablet 1 tablet 1 tablet Oral BID Macho Arredondo MD 1 tablet at 05/14/18 1043 traMADol (ULTRAM) tablet 50 mg 50 mg Oral Q6H PRN Macho Arredondo MD Recent Labs 05/14/18 0927 NA 142 K 4.6 CL 106 CO2 26 BUN 25 CREA 1.84* GLU 119* CALCIUM 9.1 Scheduled Meds: aspirin 81 mg Oral Daily atorvaSTATin 80 mg Oral Nightly cholecalciferol 1,000 Units Oral Daily clopidogrel 75 mg Oral Daily famotidine 40 mg Oral Daily furosemide 20 mg Oral Daily gabapentin 300 mg Oral TID heparin 5,000 Units Subcutaneous 2 times per day metFORMIN 500 mg Oral BID WC metoprolol succinate 25 mg Oral Daily pantoprazole 40 mg Oral QAM AC sacubitril-valsartan 1 tablet Oral BID IV Meds: Imaging: No results found. [facility] [address], [address] [place] [address] Portions of this chart may have been created with [employer] voice recognition software. Occasi onal wrong-word or sound-alike substitutions may have occurred due to the inherent canseco itations of voice recognition software. Please read the chart carefully and recognize, using context, where these substitutions have occurred. documented in this en counter Miscellaneous Notes Treatment Plan - Carli Meade MD - 05/21/2018 9:35 [facility] Patient scheduled with mnCarli MD, for Adv Heart Failure follow up ThuMay 26 @ 11am. lan of Care - Haroldo Blanc RN - 05/21/2018 4:23 AM PDT Problem: Cardiac: Heart Failure (Adult) Prevent and manage potential problems includin. cardiac cachexia2. cardiac pump dysfunct ion3. decreased quality of life4. dysrhythmia/arrhythmia5. fluid/electrolyte imbalance6. fun ctional decline/self-care deficit7. respiratory compromise8. situational response9. sleep-di sordered breathing Goal: Signs and Symptoms of Listed Potential Problems Will be Absent or Manageable (Cardiac : Heart Failure) Signs and symptoms of listed potential problems will be absent or manageable by discharge/t ransition of care (reference Cardiac: Heart Failure (Adult) CPG). Outcome: Improving Functional ability will trend towards baseline through 05/22 Cardiopulmonary symptoms will be absent or manageable by 05/22 Comments: Increase activity level according to patient tolerance Provide energy conservation training Encourage rest periods prior to becoming fatigued Closely monitor fluid balance. Monitor/manage medications effects Monitor heart rate/rhtyhm for any changes 6N / 6S Shift Summary Note Room # 608/608-01 Name: Bob Will [id number] Code Status: Full Code Isolation: None Dx/Tx: CAD Surgery/ Procedure: s/p HC stent to Circumflex Vitals: 05/20/18 1915 05/20/18 2200 05/21/18 0116 05/21/18 0355 BP: 116/68 113/65 101/75 117/57 Pulse: 66 71 62 68 Resp: 16 16 16 16 Temp: 35.9 C (96.6 F) 35.7 C (96.2 F) 35.8 C (96.4 F) 36.7 C (98 F) TempSrc: Temporal Temporal Temporal Temporal SpO2: 97% 95% 97% 96% Weight: Height: Shift Summary Information: Pt. Admitted on 05/17 from [facility] with recurrent HF with recurrent SOA and pulmonary edema. Transferred to assess potential for surgical revasculari zation to imrpove LV systolic dysfunction. History of CKD, Diabetes, LOUISA CAD. On 05/19 an int ra-vascular S and angioplasty was performed only to the circumflex because of a 95% stenosis of the circumflex. Neuro: AOx4 Resp: Lungs clear/dim LDAs R hand PIV Cardiac: Ventricular Rhythm: ([id number]) (05/21/18 020) Active Gtts: Abnormal Labs/ Treatment: See Results GI: WDL Active Orders Diet Diet fat and cholesterol modified; sodium restricted 3-4 gm; Effective Now Last Bowel Movement: 05/19/18 (05/21/18 0200) : WDL Skin: (Incisions/ Wounds/ Edema) Bilateral groin sites with dried drainage. Sites were ma rked on 05/19 at beginning of NOC shift, no new drainage. Pain: C/o chronic neck/back pain. Activity: Independent lan of [facility] vikashvaleria, Haroldo Pierce RN - 05/20/2018 11:55 PM PDTPt. Requested to sleep and be assessed when he wa kes. No BP was taken. Pt. Has unlabored Breathing, AOx4, moves independently in bed. No c/o pain. Pleasant but re quested to sleep and be reassessed at a later time. Given lack of sleep the previous night, request granted. lan of [facility] PraveenaSony contreras RN - 05/20/2018 7:35 PM PDT Problem: Patient Care Overview (Adult) Goal: Care Team Goals & Evaluation PROBLEM-RELATED GOALS: The following goals will be maintained through 05/23/18 1. The patient will be free from skin breakdown. 2. The patient will not fall or injure themselves 3. Pt will have a documented BM by 05/20 STRATEGY TO ACHIEVE GOALS: 1. The patient will be repositioned every 2 hours and PRN if needing assistance with positi oning. 2. The patient will have the call light within reach if able to utilize it. If their mental status does not allow for this, frequent monitoring will be provided to assess for pain, en vironmental threats, elimination issues., and ensure the patient's safety 3. Evaluate for need for bowel regimen. RESTRAINT-RELATED GOALS: STRATEGIES TO ACHIEVE RESTRAINT GOALS: 6N / 6S Shift Summary Note Room # 608/608-01 Name: Bob Will [id number] Code Status: Full Code Isolation: None Dx/Tx: CAD, hx stemi/aicd Surgery/ Procedure: SP HC-> stent to CX Vitals: 05/20/18 0900 05/20/18 1120 05/20/18 1500 05/20/18 1700 BP: 99/41 117/65 111/71 Pulse: 70 76 67 Resp: 17 18 18 Temp: 36.2 C (97.2 F) 35.3 C (95.6 F) 35.7 C (96.2 F) TempSrc: Temporal Temporal Temporal SpO2: 98% Weight: 95.6 kg (210 lb 12.8 oz) Height: Shift Summary Information: VSS during shift. Bilat groin sites CDI. L groin w/ angioseal, d ried drainage noted. R groin w/ scant dried drainage. Pt ambulating independently in hallway s with regularity. Denies SOB. New stent to CX. Plan to D/C in AM. Chronic pain to back and neck. Neuro: A&O x4 Resp: Diminished clear LDAs R PIV flushing well, no erythema Cardiac: Ventricular Rhythm: (p tracking V pacing) (05/20/18 1500) Active Gtts: Abnormal Labs/ Treatment: See am labs GI: wdl Active Orders Diet Diet fat and cholesterol modified; sodium restricted 3-4 gm; Effective Now Last Bowel Movement: 05/19/18 (05/20/18 1500) : Voiding independently Skin: (Incisions/ Wounds/ Edema) bilat groins, L w/ angioseal/dried drainage. R w/ scant dried drainage. Pain: Chronic back/neck pain. Takes hydrocodone 10 MG Q4 Activity: Ambulating independently Therapy involved?: PT Electronically signed by: Sony Acosta RN 05/20/2018 19:35 lan of Care - Akua Flood RN - 05/20/2018 2:04 PM PDTFormatting of this note might be different fr om the original. Problem: Patient Care Overview (Adult) Goal: Care Team Goals & Evaluation PROBLEM-RELATED GOALS: The following goals will be maintained through 05/23/18 1. The patient will be free from skin breakdown. 2. The patient will not fall or injure themselves 3. Pt will have a documented BM by 05/20 STRATEGY TO ACHIEVE GOALS: 1. The patient will be repositioned every 2 hours and PRN if needing assistance with positi oning. 2. The patient will have the call light within reach if able to utilize it. If their mental status does not allow for this, frequent monitoring will be provided to assess for pain, en vironmental threats, elimination issues., and ensure the patient's safety 3. Evaluate for need for bowel regimen. RESTRAINT-RELATED GOALS: STRATEGIES TO ACHIEVE RESTRAINT GOALS: Outcome: Improving Goal Evaluation: 6N / 6S Shift Summary Note Room # 608/608-01 Name: Bob Will [id number] Code Status: Full Code Isolation: None Dx/Tx: Surgery/ Procedure: Vitals: 05/20/18 0000 05/20/18 0400 05/20/18 0900 05/20/18 1120 BP: 111/56 108/58 99/41 117/65 Pulse: 79 82 70 76 Resp: Temp: 35.9 C (96.7 F) 36.1 C (96.9 F) 36.2 C (97.2 F) 35.3 C (95.6 F) TempSrc: Temporal Temporal Temporal Temporal SpO2: 95% 95% Weight: Height: Shift Summary Information: s/p HC stent to Circ, bilat groins stable/soft/no hematoma, dist al pulses palpable. CHF, EF 25%. Hx STEMI. ICD/PPM, currently p-tracking v-pacing on the thu itor. PRN norco 2 tabs given for chronic back and neck pain. Plan for LVAD/transplant in fut ure. Up ad lolita Neuro: A/o Resp: R/a LDAs PIV Cardiac: Ventricular Rhythm: other (see comments) (Ptracking Vpacing) (05/20 0825) Active Gtts: Abnormal Labs/ Treatment: GI: Denies n/v Active Orders Diet Diet fat and cholesterol modified; sodium restricted 3-4 gm; Effective Now Last Bowel Movement: 05/18/18 (05/19/18 1934) : Voiding per toilet Skin: (Incisions/ Wounds/ Edema) bilat groins stable, dressings with dried drainage, soft/ no hematoma Pain: Activity: Therapy involved?: lan of [facility] [place] - Heather cornelius RD - 05/20/2018 11:20 AM PDTStable nutritional status per available paramete rs. PO intake: 100% of low fat, 3-4 g Na meals; Wt fluctuates, but over all stable x 1 year ; Last BM 05/18. Vit D 44.8 on 05/18/18. Rounding as needed with team. Electronically signed by: Heather Garcia RD 05/20/2018 11:22 [phone] dave d by Heather Garcia RD at 05/20/2018 11:22 AM PDTPlan of [place] - Haroldo Chan RN - 4:25 AM PDT Problem: Patient Care Overview (Adult) Goal: Care Team Goals & Evaluation PROBLEM-RELATED GOALS: The following goals will be maintained through 05/23/18 1. The patient will be free from skin breakdown. 2. The patient will not fall or injure themselves 3. Pt will have a documented BM by 05/19 STRATEGY TO ACHIEVE GOALS: 1. The patient will be repositioned every 2 hours and PRN if needing assistance with positi oning. 2. The patient will have the call light within reach if able to utilize it. If their mental status does not allow for this, frequent monitoring will be provided to assess for pain, en vironmental threats, elimination issues., and ensure the patient's safety 3. Evaluate for need for bowel regimen. RESTRAINT-RELATED GOALS: STRATEGIES TO ACHIEVE RESTRAINT GOALS: Goal Evaluation: 6N / 6S Shift Summary Note Room # 608/608-01 Name: Bob Will [id number] Code Status: Full Code Isolation: None Dx/Tx: PCI Surgery/ Procedure: Vitals: 05/19/18 2028 05/19/18 2102 05/20/18 0000 05/20/18 0400 BP: 103/54 111/56 108/58 Pulse: 76 79 82 Resp: Temp: 36.3 C (97.4 F) 35.9 C (96.7 F) 36.1 C (96.9 F) TempSrc: Temporal Temporal Temporal SpO2: 92% 95% 95% Weight: 94.9 kg (209 lb 3.5 oz) Height: Shift Summary Information: Pt. Admitted on 05/17 from [facility] with recurrent HF with recurrent SOA and pulmonary edema. Transferred to assess potential for surgical revasculari zation to imrpove LV systolic dysfunction. History of CKD, Diabetes, LOUISA CAD. On 05/19 an int ra-vascular S and angioplasty was performed only to the circumflex because of a 95% stenosis of the circumflex. Neuro: AOx4 Resp: Lungs clear/dim LDAs R hand piv Cardiac: Ventricular Rhythm: other (see comments) (p - ) (05/20/18 0000) P-tracking v-paced Active Gtts: Abnormal Labs/ Treatment: See Results GI: WDL Active Orders Diet Diet fat and cholesterol modified; sodium restricted 3-4 gm; Effective Now Last Bowel Movement: 05/18/18 (05/19/18 193) : Voids independently Skin: (Incisions/ Wounds/ Edema) Bilateral groin sites with dried drainage. Sites marked with pen at beginning of shift d/t previous clots popping Pain: Chronic neck/back pain Activity: Independent lan of Mica Franklin RN - 05/19/2018 6:10 PM PDTPt medicated w/ 2 hydrocodone 5/325 po for c/o marc k and neck pain lan o f Mica Aldana RN - 05/19/2018 5:51 PM PDTR groin site w/ small amount of blood . CVT called, pressure held, site redressed by cv tech lan of Sharon Roman RN - 05/19/2018 5:28 PM PDT Problem: Patient Care Overview (Adult) Goal: Care Team Goals & Evaluation PROBLEM-RELATED GOALS: The following goals will be maintained through 05/23/18 1. The patient will be free from skin breakdown. 2. The patient will not fall or injure themselves 3. Pt will have a documented BM by 05/19 STRATEGY TO ACHIEVE GOALS: 1. The patient will be repositioned every 2 hours and PRN if needing assistance with positi oning. 2. The patient will have the call light within reach if able to utilize it. If their mental status does not allow for this, frequent monitoring will be provided to assess for pain, en vironmental threats, elimination issues., and ensure the patient's safety 3. Evaluate for need for bowel regimen. RESTRAINT-RELATED GOALS: STRATEGIES TO ACHIEVE RESTRAINT GOALS: Goal Evaluation: 6N / 6S Shift Summary Note Room # [facility] RAMON/[facility] Mirza* Name: Bob Will [id number] Code Status: Full Code Isolation: None Dx/Tx: PCI Surgery/ Procedure: Vitals: 05/19/18 1705 05/19/18 1710 05/19/18 1715 05/19/18 1717 BP: 105/61 105/56 106/58 106/58 Pulse: 64 63 71 65 Resp: 15 16 14 12 Temp: TempSrc: SpO2: 96% 97% 97% 99% Weight: Height: Shift Summary Information: Pt admitted on 05/17 from [facility] with recurrent heart failure with recurrent SOB, p ulmonary edema. Transferred to to see if any potential for surgical revasucularization to improve his LV systolic dysfunction. HX CDK, DM 11, LOUISA CAD. Angioplasty of circumflex whic h was 95% stenosed. Plan is to repeat AM labs, diurese for HF, ASA indefinitely, and dual an tiplatelet therapy for 3 months. Neuro: A&O, c/o chronic numbness and tingling left LE Resp: Diminished lungs, RA LDAs RPIV Cardiac: P-tracking Ventricular Rhythm: other (see comments) (V-pacing) (05/19/18 0800) Active Gtts: sodium chloride 0.45% 1,000 mL (05/18/187) Abnormal Labs/ Treatment: GI: BT x4, states he had a BM this AM Active Orders Diet Diet NPO; strict NPO; Effective Midnight Last Bowel Movement: 05/18/18 (05/19/18 0800) : Voiding Skin: (Incisions/ Wounds/ Edema) Bilateral groin sites with closure devices, wnl Pain: Neck, chronic 2 norco Q4 hours Activity: Independent Therapy involved?: nterim Summary - Physician - Thew, Khurram Isabel MD - 05/19/2018 2:42 PM PDTI d/w pt and his (via phone) about the heart team discussion. There was general agreement that high risk PCI to the LM/c irc is his best option, I will do it with Impella support. I did review prior caths - has 3 .0 Taxus at ostial circ in March 2017 at [facility] in [place]. Then had a 3.0 x 13 [place] ANY in pr ox circ, extending back into LM with post dilatation with 3.5 NC balloon in 2017 at [facility]. Anticipate doing IVUS guided PTCA only (with NC balloon) since there are already 2 layers o f stent in the proximal/ostial circumflex. After explanation of procedure, it's risks and a lternative therapy, written consent was obtained from the patient for cath/coronary angiogra m with possible percutaneous coronary intervention. Risks including bleeding, infection, co ntrast reaction, contrast induced nephropathy/renal failure, stroke, heart attack, ventricul ar tachycardia/fibrillation, artery dissection or perforation and even were discussed. Alternative therapies, including no invasive procedures were discussed as well, the patien t elected to proceed. [place] [employer] Grade: ASA 4 - A patient with severe systemic disease that i s a constant threat to life Mallampati Class: III (base of uvula and soft palate) [facility] [phone] lan of Care - Beckie Chambers RN - 05/19/2018 12:02 PM PDTFormatting of this note might be different from alie ceron. Problem: Patient Care Overview (Adult) Goal: Care Team Goals & Evaluation PROBLEM-RELATED GOALS: The following goals will be maintained through 05/23/18 1. The patient will be free from skin breakdown. 2. The patient will not fall or injure themselves 3. Pt will have a documented BM by 05/19 STRATEGY TO ACHIEVE GOALS: 1. The patient will be repositioned every 2 hours and PRN if needing assistance with positi oning. 2. The patient will have the call light within reach if able to utilize it. If their mental status does not allow for this, frequent monitoring will be provided to assess for pain, en vironmental threats, elimination issues., and ensure the patient's safety 3. Evaluate for need for bowel regimen. RESTRAINT-RELATED GOALS: STRATEGIES TO ACHIEVE RESTRAINT GOALS: Goal Evaluation: 6N / 6S Shift Summary Note Room # 608/608-01 Name: Bob Will [id number] Code Status: See prior hospital encounter Isolation: None Dx/Tx: CHF Surgery/ Procedure: Pending 05/19 Vitals: 05/18/18 1851 05/19/18 0048 05/19/18 0339 05/19/18 0800 BP: 101/55 119/66 103/60 109/49 Pulse: 79 80 73 65 Resp: Temp: 36.1 C (97 F) 36.1 C (96.9 F) 35.8 C (96.5 F) 36.3 C (97.3 F) TempSrc: Temporal Temporal Temporal Temporal SpO2: 90% 91% 98% 98% Weight: Height: Shift Summary Information: Pt laying in bed, up ambulating independently with cane. CHG bat h completed. Neuro: A&Ox4 Resp: No sob on RA, 1-2L 02 via NC at [facility] for comfort LDAs PIV intact, infusing Cardiac: V-pacing hx. AICD Ventricular Rhythm: other (see comments) (V-pacing) (05/19/18 0800) Active Gtts: sodium chloride 0.45% 1,000 mL (05/18/187) Abnormal Labs/ Treatment: GI: Abdomen soft, non-tender, rounded. BM yesterday Active Orders Diet Diet NPO; strict NPO; Effective Midnight Last Bowel Movement: 05/18/18 (05/19/18 0800) : Voiding via urinal Skin: (Incisions/ Wounds/ Edema) Dry intact Pain: Neck pain controlled on norco Activity: Up ad lolita with cane Therapy involved?: lan of Care - [facility] Iliana boateng RN - 05/19/2018 5:33 AM PDTFormatting of this note might be different from alie reyes original. Problem: Patient Care Overview (Adult) Goal: Care Team Goals & Evaluation PROBLEM-RELATED GOALS: The following goals will be maintained through 05/23/18 1. The patient will be free from skin breakdown. 2. The patient will not fall or injure themselves 3. Pt will have a documented BM by 05/19 STRATEGY TO ACHIEVE GOALS: 1. The patient will be repositioned every 2 hours and PRN if needing assistance with positi oning. 2. The patient will have the call light within reach if able to utilize it. If their mental status does not allow for this, frequent monitoring will be provided to assess for pain, en vironmental threats, elimination issues., and ensure the patient's safety 3. Evaluate for need for bowel regimen. RESTRAINT-RELATED GOALS: STRATEGIES TO ACHIEVE RESTRAINT GOALS: Goal Evaluation: 6N / 6S Shift Summary Note Room # 608/608-01 Name: Bob Will [id number] Code Status: See prior hospital encounter Isolation: None Dx/Tx: Surgery/ Procedure: Vitals: 05/18/18 1618 05/18/18 1851 05/19/18 0048 05/19/18 0339 BP: 101/60 101/55 119/66 103/60 Pulse: 68 79 80 73 Resp: Temp: (!) 30.2 C (86.3 F) 36.1 C (97 F) 36.1 C (96.9 F) 35.8 C (96.5 F) TempSrc: Temporal Temporal Temporal Temporal SpO2: 94% 90% 91% 98% Weight: Height: Shift Summary Information: Pt transferred from [facility]. HF- SOB, pulmonary edema. P mikayla: NPO for HC 1530. Future: heart transplant, LVAD? Care conference today. Neuro: A/O Resp: 2L NC for comfort LDAs PIV x1 Cardiac: p tracking Ventricular Rhythm: other (see comments) (v paced 100%) (05/18/18 1 618) Active Gtts: sodium chloride 0.45% 1,000 mL (05/18/18 2157) Abnormal Labs/ Treatment: See labs GI: Bowel tones x4 Active Orders Diet Diet NPO; strict NPO; Effective Midnight Last Bowel Movement: 05/18/18 (05/18/18 1618) : Voiding, up to toilet Skin: (Incisions/ Wounds/ Edema) Pain: norco x2 Activity: Independent Therapy involved?: lan of Care - Sharon Miller RN - 05/18/2018 4:59 PM PDTFormatting of this note might be different from t he original. Problem: Patient Care Overview (Adult) Goal: Care Team Goals & Evaluation PROBLEM-RELATED GOALS: The following goals will be maintained through 05/23/18 1. The patient will be free from skin breakdown. 2. The patient will not fall or injure themselves 3. Pt will have a documented BM by 05/19 STRATEGY TO ACHIEVE GOALS: 1. The patient will be repositioned every 2 hours and PRN if needing assistance with positi oning. 2. The patient will have the call light within reach if able to utilize it. If their mental status does not allow for this, frequent monitoring will be provided to assess for pain, en vironmental threats, elimination issues., and ensure the patient's safety 3. Evaluate for need for bowel regimen. RESTRAINT-RELATED GOALS: STRATEGIES TO ACHIEVE RESTRAINT GOALS: Goal Evaluation: 6N / 6S Shift Summary Note Room # 608/608-01 Name: Bob Will [id number] Code Status: See prior hospital encounter Isolation: None Dx/Tx: CHF Surgery/ Procedure: Vitals: 05/18/18 1048 05/18/18 1130 05/18/18 1355 05/18/18 1618 BP: 101/55 104/53 101/60 Pulse: 69 67 69 68 Resp: 16 18 Temp: 36.4 C (97.5 F) (!) 30.2 C (86.3 F) TempSrc: Temporal Temporal SpO2: 94% 93% 94% Weight: Height: Shift Summary Information: Pt admitted on 05/17 from [facility] with recurrent heart failure with recurrent SOB, p ulmonary edema. Transferred to to see if any potential for surgical revasucularization to improve his LV systolic dysfunction. NPO @ [facility] for possible stent tomorrow. HX CDK, DM 11, O SA CAD. Neuro: A&O Resp: Clear, RA - NC @ noc for comfort LDAs RPIV Cardiac: Ventricular Rhythm: other (see comments) (v paced 100%) (05/18/18 1 618) Active Gtts: sodium chloride 0.45% Abnormal Labs/ Treatment: Cr 1.89 GI: BT x4, states BM today Active Orders Diet Diet fat and cholesterol modified; sodium restricted 3-4 gm; Effective Now Diet NPO; strict NPO; Effective Midnight Last Bowel Movement: 05/18/18 (05/18/18 1618) : Voiding Skin: (Incisions/ Wounds/ Edema) WNL Pain: Chronic neck, 02/14 norco for pain x2 Activity: Independent with cane Therapy involved?: lan of Care - Dc Beckie mishra RN - 05/18/2018 11:40 AM PDTFormatting of this note might be different fro m the original. Problem: Patient Care Overview (Adult) Goal: Care Team Goals & Evaluation PROBLEM-RELATED GOALS: The following goals will be maintained through 05/23/18 1. The patient will be free from skin breakdown. 2. The patient will not fall or injure themselves 3. Pt will have a documented BM by 05/19 STRATEGY TO ACHIEVE GOALS: 1. The patient will be repositioned every 2 hours and PRN if needing assistance with positi oning. 2. The patient will have the call light within reach if able to utilize it. If their mental status does not allow for this, frequent monitoring will be provided to assess for pain, en vironmental threats, elimination issues., and ensure the patient's safety 3. Evaluate for need for bowel regimen. RESTRAINT-RELATED GOALS: STRATEGIES TO ACHIEVE RESTRAINT GOALS: Goal Evaluation: 6N / 6S Shift Summary Note Room # 608/608-01 Name: Bob Will [id number] Code Status: See prior hospital encounter Isolation: None Dx/Tx: CHF, WEI Surgery/ Procedure: pending Impella vs stent placement Vitals: 05/18/18 0300 05/18/18 0749 05/18/18 0931 05/18/18 1048 BP: 108/56 101/59 103/44 101/55 Pulse: 62 66 67 69 Resp: 16 Temp: 36.3 C (97.4 F) 35.4 C (95.8 F) 36.4 C (97.5 F) TempSrc: Temporal Temporal Temporal SpO2: 95% 96% 94% Weight: 95.2 kg (209 lb 14.1 oz) Height: Shift Summary Information: Pt doing well today. and dog at bedside. Pt had PFT's this morning. Up ambulating in hallway ad lolita with cane Neuro: A&Ox4, denies N/T, MAEW Resp: WEI, no sob on rest. 1-2L 02 via NC at [facility] for comfort LDAs PIV intact, flushes well Cardiac: Hx AICD 100% V-pacing Ventricular Rhythm: other (see comments) (V-paced ) (05/18/18748) Active Gtts: Abnormal Labs/ Treatment: GI: Abdomen soft, good appetite Active Orders Diet Diet fat and cholesterol modified; sodium restricted 3-4 gm; Effective Now Last Bowel Movement: 05/18/18 (05/18/18748) : Voiding via urinal. Skin: (Incisions/ Wounds/ Edema) Dry, intact Pain: Chronic neck pain controlled on norco Activity: Up ad lolita with cane Therapy involved?: lan of Care - Jadon Amezquita RN - 05/18/2018 4:45 AM PDTFormatting of this note might be different from t vikash original. Problem: Patient Care Overview (Adult) Goal: Care Team Goals & Evaluation PROBLEM-RELATED GOALS: The following goals will be maintained through 05/23/18 1. The patient will be free from skin breakdown. 2. The patient will not fall or injure themself STRATEGY TO ACHIEVE GOALS: 1. The patient will be repositioned every 2 hours and PRN if needing assistance with positi oning. 2. The patient will have the call light within reach if able to utilize it. If their mental status does not allow for this, frequent monitoring will be provided to assess for pain, en vironmental threats, elimination issues., and ensure the patient's safety. RESTRAINT-RELATED GOALS: STRATEGIES TO ACHIEVE RESTRAINT GOALS: Goal Evaluation: 6N / 6S Shift Summary Note Room # 608/[id number] Name: Bob Will [id number] Code Status: See prior hospital encounter Isolation: None Dx/Tx: Surgery/ Procedure: Vitals: 05/17/18 1540 05/17/18 1850 05/17/18 2355 05/18/18 0300 BP: 116/56 99/56 94/52 108/56 Pulse: 70 72 61 62 Resp: Temp: 36.6 C (97.8 F) 36.4 C (97.5 F) 36.1 C (97 F) 36.3 C (97.4 F) TempSrc: Temporal Temporal Temporal Temporal SpO2: 95% 95% 94% 95% Weight: Height: Shift Summary Information: Slept most of shift. Donnellson PRN for chronic neck pain. Awaiting c are conference Thursday for further treatment plan. VSS. Ambulating in hyde independently. Plan for PFT's today. Neuro: A&O Resp: RA. 1-2L at night for comfort LDAs PIV Cardiac: 100% V-paced Ventricular Rhythm: other (see comments) (100% V-paced ) (05/17/18 1540) Active Gtts: Abnormal Labs/ Treatment: GI: Active Active Orders Diet Diet fat and cholesterol modified; sodium restricted 3-4 gm; Effective Now Last Bowel Movement: 05/16/18 (05/17/18 0744) : Voiding via urinal Skin: (Incisions/ Wounds/ Edema) Pain: Chronic neck pain. Donnellson PRN Activity: Independent Therapy involved?: lan of Care - Kell Pagan I RN - 05/17/2018 4:31 PM PDT Problem: Patient Care Overview (Adult) Goal: Care Team Goals & Evaluation PROBLEM-RELATED GOALS: The following goals will be maintained through 05/23/18 1. The patient will be free from skin breakdown. 2. The patient will not fall or injure themself STRATEGY TO ACHIEVE GOALS: 1. The patient will be repositioned every 2 hours and PRN if needing assistance with positi oning. 2. The patient will have the call light within reach if able to utilize it. If their mental status does not allow for this, frequent monitoring will be provided to assess for pain, en vironmental threats, elimination issues., and ensure the patient's safety. RESTRAINT-RELATED GOALS: STRATEGIES TO ACHIEVE RESTRAINT GOALS: Outcome: Unchanged Goal Evaluation: 6N / 6S Shift Summary Note Room # 608/608-01 Name: Bob Will [id number] Code Status: See prior hospital encounter Isolation: None Dx/Tx: HF, CAD, Hx ID/stents Surgery/ Procedure: care conference Thursday Vitals: 05/17/18 0744 05/17/18 1000 05/17/18 1059 05/17/18 1540 BP: 111/61 107/53 116/56 Pulse: 67 71 70 Resp: Temp: 35.9 C (96.7 F) 36.1 C (97 F) 36.6 C (97.8 F) TempSrc: Temporal Temporal Temporal SpO2: 96% 97% 95% Weight: 96 kg (211 lb 10.3 oz) Height: Shift Summary Information: Awaiting care conference Thursday for further treatment plan, p ossible PCI, possibly LVAD vs transplant w/u. Takes prn Donnellson 10mg for chronic pain. Denies pain. VSS. Spouse at bedside this evening. Ambulating independently in room/hyde c cane. Allegra n for PFT's tomorrow at 11:00. Neuro: A/o Resp: RA. Using 1-2 L NC at night for comfort LDAs PIV X1 Cardiac: 100% V-paced. EF 25%. Abnormal Labs/ Treatment: Creatinine 1.89, see labs GI: wnl : wnl Skin: (Incisions/ Wounds/ Edema) Intact Pain: Prn Donnellson 10 mg for chronic back pain Activity: Independent c cane lan of Care - Beckie Pleitez RN - 05/17/2018 11:44 AM PDTFormatting of this note might be different fro m the original. Problem: Patient Care Overview (Adult) Goal: Care Team Goals & Evaluation PROBLEM-RELATED GOALS: The following goals will be maintained through 05/23/18 1. The patient will be free from skin breakdown. 2. The patient will not fall or injure themself STRATEGY TO ACHIEVE GOALS: 1. The patient will be repositioned every 2 hours and PRN if needing assistance with positi oning. 2. The patient will have the call light within reach if able to utilize it. If their mental status does not allow for this, frequent monitoring will be provided to assess for pain, en vironmental threats, elimination issues., and ensure the patient's safety. RESTRAINT-RELATED GOALS: STRATEGIES TO ACHIEVE RESTRAINT GOALS: Goal Evaluation: 6N / 6S Shift Summary Note Room # 608/608-01 Name: Bob Will [id number] Code Status: See prior hospital encounter Isolation: None Dx/Tx: CHF, Surgery/ Procedure: pending care conference 05/19 LVAD vs transplamt Vitals: 05/17/18 0353 05/17/18 0744 05/17/18 1000 05/17/18 1059 BP: 116/72 111/61 107/53 Pulse: 68 67 71 Resp: 18 16 16 Temp: 36 C (96.8 F) 35.9 C (96.7 F) 36.1 C (97 F) TempSrc: Temporal Temporal Temporal SpO2: 98% 96% 97% Weight: 96 kg (211 lb 10.3 oz) Height: Shift Summary Information: Pt sitting up on EOB. Eating well. Up ambulating in hallways wi th cane Neuro: A&Ox4 Resp: WEI, RA LDAs PIV intact Cardiac: 100% V-paced Active Gtts: Abnormal Labs/ Treatment: GI: Up to BR ad lolita Active Orders Diet Diet fat and cholesterol modified; sodium restricted 3-4 gm; Effective Now Last Bowel Movement: 05/16/18 (05/17/18 0744) : Lasix given- voiding via urinl Skin: (Incisions/ Wounds/ Edema) Trace edema, dry intact Pain: Neck pain controlled on norco Activity: Up ad lolita with cane Therapy involved?: ssessment & Plan Note - Marimar Torres ARNP - 05/17/2018 10:49 AM PDTAssociated Problem(s): Chron ic systolic congestive heart failure (HCC)A: -Patient appears to be euvolemic this exam. -Does elicit shortness of breath with activity. P: -Awaiting heart transplant team recommendations. -Continue current medical therapy.Electronically signed by ADARSH Farias 05/17/2018 10:52 AM PDTAssessment & Plan Note - Marimar Torres ARNP - 05/17/20 18 10:46 AM PDTAssociated Problem(s): COPD (chronic obstructive pulmonary disease) (HCC)A: -Patient on room air, ambulating the halls. C/O shortness of breath at times with exertion, however subjectively slightly improving. -Uses nasal cannula as needed. -Lungs sound clear during this assessment. -Tobacco free for one year. P: -Continue with current therapy.Electronically signed by ADARSH Farias at 0 05/17/2018 10:49 AM PDTAssessment & Plan Note - Marimar Torres ARNP - 05/17/2018 10:41 AM PDTAssociated Problem(s): Coronary artery disease involving cantwell coronary artery of cantwell heart without angina pectorisA: -Patient able to ambulate the halls without chest pain or discomfort. -Currently on Aspirin daily, and nitro as needed. P: -Plan for possible coronary revascularization after case is presented at heart team meeting . nessamen t & Plan Note - Marimar Torres ARNP - 05/17/2018 10:37 AM PDTAssociated Problem( s): FIELD SERVICES MANAGER-D (AICD) [employer] [facility]. A: -Patient ventricular paced 100% this morning. No arrhythmias on telemetry. P: -No acute therapy. Continue current therapy. ssessment & Plan Note - Marimar Torres ARNP - 05/17/2018 10:33 AM PDTAssocisimona Problem(s): Ischemic cardiomyopathy03/2018: LVEF of 35%. 04/2018: LVEF of 25%. A: Currently denying chest pain or discomfort with ambulation. Understands potential for co ronary angiogram with likely stent placement. P: -Continue current therapy. -Await for heart catheterization. -Awaiting recommendations from heart transplant team. lan of Care - Jadon Valle RN - 05/17/2018 5:13 AM PDT Problem: Patient Care Overview (Adult) Goal: Care Team Goals & Evaluation PROBLEM-RELATED GOALS: The following goals will be maintained through 05/23/18 1. The patient will be free from skin breakdown. 2. The patient will not fall or injure themself STRATEGY TO ACHIEVE GOALS: 1. The patient will be repositioned every 2 hours and PRN if needing assistance with positi oning. 2. The patient will have the call light within reach if able to utilize it. If their mental status does not allow for this, frequent monitoring will be provided to assess for pain, en vironmental threats, elimination issues., and ensure the patient's safety. RESTRAINT-RELATED GOALS: STRATEGIES TO ACHIEVE RESTRAINT GOALS: Goal Evaluation: 6N / 6S Shift Summary Note Room # 608/608-01 Name: Bob Will [id number] Code Status: See prior hospital encounter Isolation: None Dx/Tx: Surgery/ Procedure: Vitals: 05/16/18 1500 05/16/18 1900 05/17/18 0000 05/17/18 0353 BP: 114/61 112/57 91/46 116/72 Pulse: 63 70 71 68 Resp: Temp: 35.3 C (95.6 F) 36.1 C (96.9 F) 35.9 C (96.7 F) 36 C (96.8 F) TempSrc: Temporal Temporal Temporal Temporal SpO2: 94% 98% 95% 98% Weight: Height: Shift Summary Information: Surgical consult Thursday for possible w/u for LVAD vs heart tr ansplant. Hx ICD, ID. A&O. RA. VSS. Neuro: A&O Resp: RA. 1-2 L at night for comfort LDAs PIV Cardiac: 100% P-tracking Active Gtts: Abnormal Labs/ Treatment: GI: Active Active Orders Diet Diet fat and cholesterol modified; sodium restricted 3-4 gm; Effective Now : Voiding Skin: (Incisions/ Wounds/ Edema) Pain: Donnellson PRN for neck pain Activity: Independent with cane Therapy involved?: lan of Care - Kell Pagan RN - 05/16/2018 7:52 PM PDT Problem: Patient Care Overview (Adult) Goal: Care Team Goals & Evaluation PROBLEM-RELATED GOALS: The following goals will be maintained through 05/17/18 1. The patient will be free from skin breakdown. 2. The patient will not fall or injure themself STRATEGY TO ACHIEVE GOALS: 1. The patient will be repositioned every 2 hours and PRN if needing assistance with positi oning. 2. The patient will have the call light within reach if able to utilize it. If their mental status does not allow for this, frequent monitoring will be provided to assess for pain, en vironmental threats, elimination issues., and ensure the patient's safety. RESTRAINT-RELATED GOALS: STRATEGIES TO ACHIEVE RESTRAINT GOALS: Outcome: Unchanged Goal Evaluation: 6N / 6S Shift Summary Note Room # 608/608-01 Name: Bob Will [id number] Code Status: See prior hospital encounter Isolation: None Dx/Tx: NSTEMI, HTN, HLD, HF Surgery/ Procedure: surgical consult Vitals: 05/16/18 0700 05/16/18 1206 05/16/18 1500 05/16/18 1900 BP: 100/56 102/57 114/61 112/57 Pulse: 62 69 63 70 Resp: 16 16 16 18 Temp: 35.4 C (95.8 F) 35.6 C (96.1 F) 35.3 C (95.6 F) 36.1 C (96.9 F) TempSrc: Temporal Temporal Temporal Temporal SpO2: 93% 94% 98% Weight: Height: Shift Summary Information: Surgical consult Thursday, possible w/u for LVAD vs heart trans plant. Hx ID (age 40's), stents, HTN, HLD, and strong familial Hx CAD. Prn norco 10 mg q 4 h rs for chronic neck/back pain. Ambulating in hallway independently c cane. Neuro: A/o Resp: RA. Uses 1-2 L at night for comfort LDAs PIV x1 Cardiac: 100% Paced Abnormal Labs/ Treatment: See labs. Creatinine 1.87 GI: wnl : wnl Skin: (Incisions/ Wounds/ Edema) Skin intact Pain: Prn hydrocodone 10 mg for chronic pain Activity: Independent, uses cane lan of Cameron Correa RN - 05/16/2018 4:22 AM PDTFormatting of this note might be different from th e original. Problem: Patient Care Overview (Adult) Goal: Care Team Goals & Evaluation PROBLEM-RELATED GOALS: STRATEGY TO ACHIEVE GOALS: RESTRAINT-RELATED GOALS: STRATEGIES TO ACHIEVE RESTRAINT GOALS: Outcome: Improving 6N / 6S Shift Summary Note Room # 608/608-01 Name: Bob Will [id number] Code Status: See prior hospital encounter Isolation: None Dx/Tx: NSTEMI 14 Days ago Surgery/ Procedure: Surg Consult Vitals: 05/15/18 2055 05/15/18 2300 05/15/18 2329 05/16/18 0300 BP: 110/68 114/68 121/77 106/62 Pulse: 73 74 79 71 Resp: 16 16 16 16 Temp: 36.1 C (96.9 F) 35.9 C (96.6 F) 35.8 C (96.5 F) 36.2 C (97.1 F) TempSrc: Temporal Temporal Temporal Temporal SpO2: 92% 93% 94% 94% Weight: Height: Shift Summary Information: Surgical consult, meeting on Thursday, VAD to TP work up. VSS t his shift, up IND w/ cane. Donnellson 5 x2 Q4hr for pain, well controlled. Pt states he misses ho me, wants to be with his and dog. Hx ICD. Neuro: A & O x4 Resp: 2L O2 NC at night for comfort LDAs PIV Cardiac: P-tracking 70 Active Gtts: Abnormal Labs/ Treatment: See labs GI: WDL Active Orders Diet Diet fat and cholesterol modified; sodium restricted 3-4 gm; Effective Now : Voiding Skin: (Incisions/ Wounds/ Edema) Intact Pain: PRN Donnellson 5mg x2 Q4 hr for chronic back and neck pain Activity: IND w/ cane Therapy involved?: lan of Cameron Li RN - 05/15/2018 6:53 AM PDTFormatting of this note might be different from the [place]. Problem: Patient Care Overview (Adult) Goal: Care Team Goals & Evaluation PROBLEM-RELATED GOALS: STRATEGY TO ACHIEVE GOALS: RESTRAINT-RELATED GOALS: STRATEGIES TO ACHIEVE RESTRAINT GOALS: Outcome: Improving 6N / 6S Shift Summary Note Room # 608/608-01 Name: Bob Will [id number] Code Status: See prior hospital encounter Isolation: None Dx/Tx: NSTEMI 14 Days ago, Heart Failure Surgery/ Procedure: Vitals: 05/14/18 2210 05/14/18 2218 05/15/18 0402 05/15/18 0604 BP: (!) 82/50 (!) 84/56 (!) 80/47 116/70 Pulse: 69 65 74 Resp: 16 16 16 Temp: 36.7 C (98.1 F) 36.9 C (98.4 F) 35.8 C (96.4 F) TempSrc: Temporal Temporal Temporal SpO2: (!) 88% 95% 94% 95% Weight: Height: Shift Summary Information: Pt awaiting LVAD workup or surgery consult. Scheduled metoprolol changed from once daily to BID around 2230. BP soft Systolic in 80's, no order parameters o n metoprololMD notified, order parameters placed and evening dose of metoprolol held. Hx I CD. Neuro: A & Ox4 Resp: RA during day, 2L O2 NC at night SPO2 in 80's LDAs PIV Cardiac: P-Tracking 74 Active Gtts: Abnormal Labs/ Treatment: GI: WDL Active Orders Diet Diet fat and cholesterol modified; sodium restricted 3-4 gm; Effective Now : Voiding Skin: (Incisions/ Wounds/ Edema) Intact Pain: Donnellson 5 x2 Q4hr, chronic back pain Activity: IND w/ 4 point cane Therapy involved?: ssessment & Plan Note - Janel Hester ARNP - 05/14/2018 9:30 AM PDTAssociated Problem(s): Chronic systo lic congestive heart failure (HCC)No indication of acute volume overload. Electronically sig phoebe by ADARSH Matthews at 05/14/2018 9:30 AM PDTAssessment & Plan Traci - Janel Hester ARNP - 05/14/2018 9:29 AM PDTAssociated Problem(s): COPD (chronic obstructi ve pulmonary disease) (HCC)Chronic condition. ssessment & Plan Traci - Janel Hester ARNP - 05/14 9:23 AM PDTAssociated Problem(s): Ischemic cardiomyopathy03/2018: LVEF of 35%. 04/2018: LVEF of 25%. Done at [facility] while admitted for CHF-pulmonary edema, and shortness o f breath. GDMT:Fuorsomide, metoprolol XL, and Entresto. Creatinine stable 1.23-could consider spironolactone. ssessment & Plan Traci - Janel Hester ARN P - 05/14/2018 9:21 AM PDTAssociated Problem(s): Coronary artery disease involving cantwell c oronary artery of cantwell heart without angina pectoris03/2017: transferred from [facility] with thrombosed left main artery treated with PCI of the left main into the LAD and s ubsequent PCI of left circumflex. Acute cardiogenic shock status post ECMO. Left atrial clot, previously on coumadin. 10/2017 when he was admitted at [facility] for pneumonia and unstable angina and underwent drug-el uting stent to ostial left circumflex and angioplasty of the distal left main with balloon i nflation extending into the left anterior descending. 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 Placen in 10/2017 at [facility]. No arhythmia noted on telemetry. Electronically signed by ADARSH Matthews at 03/2018 9:20 AM PDTPlan of Margarita Baron RN - 05/14/2018 2:44 AM PDT Problem: Patient Care Overview (Adult) Goal: Care Team Goals & Evaluation PROBLEM-RELATED GOALS: STRATEGY TO ACHIEVE GOALS: RESTRAINT-RELATED GOALS: STRATEGIES TO ACHIEVE RESTRAINT GOALS: Outcome: Improving Goal Evaluation: 6N / 6S Shift Summary Note Room # 604/604-02 Name: Bob Will [id number] Code Status: See prior hospital encounter Isolation: None Dx/Tx: NSTEMI 13 days ago Surgery/ Procedure: surg consult in am Vitals: 05/13/18 1654 05/13/18 2224 05/14/18 0035 BP: 108/60 121/69 110/52 Pulse: 73 83 71 Resp: 16 16 16 Temp: 36.4 C (97.6 F) 35.8 C (96.4 F) 36.2 C (97.2 F) TempSrc: Temporal Temporal Temporal SpO2: 94% 91% 91% Weight: 94.6 kg (208 lb 8.9 oz) Height: 1.753 m (5' 9") Shift Summary Information: NSTEMI occurred 13 days ago, surg consult in the am to discuss p robable OH. No complaints of CP. Chronic neck pain, norco 10 q4 w good results. Independent in the room. VSS. Neuro: A&O Resp: RA LDAs piv wnl Cardiac: NSR. Hx of ICD and PPM (occasional v-pacing) Active Gtts: Abnormal Labs/ Treatment: See labs GI: wnl Active Orders Diet Diet fat and cholesterol modified; sodium restricted 3-4 gm; Effective Now : wnl, up to the toilet Skin: (Incisions/ Wounds/ Edema) dry and intact Pain: Donnellson 10mgs q4 for chronic neck pain Activity: Independent in room Therapy involved?: lan of Dana Mathew RN - 05/13/2018 10:57 PM PDTFormatting of this note might be different from the o riginal. Problem: Patient Care Overview (Adult) Goal: Care Team Goals & Evaluation PROBLEM-RELATED GOALS: STRATEGY TO ACHIEVE GOALS: RESTRAINT-RELATED GOALS: STRATEGIES TO ACHIEVE RESTRAINT GOALS: Goal Evaluation: 6N / 6S Shift Summary Note Room # 604/604-02 Name: Bob Will [id number] Code Status: See prior hospital encounter Isolation: None Dx/Tx: Surgery/ Procedure: Vitals: 05/13/18 1654 05/13/18 2224 BP: 108/60 121/69 Pulse: 73 83 Resp: 16 16 Temp: 36.4 C (97.6 F) 35.8 C (96.4 F) TempSrc: Temporal Temporal SpO2: 94% 91% Weight: 94.6 kg (208 lb 8.9 oz) Height: 1.753 m (5' 9") Shift Summary Information: Arrived from [facility] via ambulance at 1630. [facility] notified of his arrival. Arrived with Heparin gtt infusing at 16.5 ml/hr. Denied any ch est pain. Only complaint was neck pain which is chronic. Lasix was given prior to his depar ture at [facility] and the EMT staff stated he voided 350ml during transport. Has HX of AICD an d pacer. Ef 18%. 12 days ago he had a NSTEMI, had a heart cath on 05/03 per report. HX DM, COPD and CHF. Here for surgery consult for possible OH. Dr. Macho Arredondo saw the patient, DC'd the Heparin gtt, Sub Q heparin given instead. Neuro: Alert and oriented, pleasant and calm Resp: Room air, denies SOB LDAs R arm peripheral site intact Cardiac: SR and occasionally V Paced Active Gtts: Abnormal Labs/ Treatment: GI: WNL Active Orders Diet Diet fat and cholesterol modified; sodium restricted 3-4 gm; Effective Now : Voiding QS Skin: (Incisions/ Wounds/ Edema) intact Pain: Donnellson 5 X 2 Q4 for chronic neck pain, wishes to take ARC. also takes neurontin Activity: Up independently, uses cane, Therapy involved?: Surgical consult tomorrow. documented in this enc ounter Plan of [...] PATRICK | | | | | | [id number] | | | | | | | | +--------+ + + + + | 04/16/ | Office | Cardiology | Alin Anderson | | | 2019 | Visit | | MD [address] | | | | | | [address] | | | | | | [place] [address] | | | | | | [phone] | | | | | | | | +--------+ + + + + | 04/16/ | Procedure | Cardiology | | | | 2019 | visit | | | | +--------+ + + + + | 04/25/ | Office | Cardiology | Rocio Pearl, | | | 2019 | Visit | | MD [address] | | | | | | [place] | | | | | | [address] | | | | | | | | +--------+ + + + + + +------+--------+ + + | Name | Type | Priori | Associated Diagnoses | Order Schedule | | | | ty | | | + +------+--------+ + + | Basic Metabolic | Lab | Routin | Coronary artery | 1 Occurrences | | Panel | | e | disease involving | starting 05/21/2018 | | | | | cantwell coronary | until 05/21/2019 | | | | | artery of cantwell | | | | | | heart without angina | | | | | | pectoris | | + +------+--------+ + + + + +--------+ + + | Name | Type | Priori | Associated Diagnoses | Order Schedule | | | | ty | | | + + +--------+ + + | [facility] | Outpatient | Routin | Coronary artery | Ordered: 05/21/2018 | | | Referral | e | disease involving | | | | | | cantwell coronary | | | | | | artery of cantwell | | | | | | heart without angina | | | | | | pectoris | | + + +--------+ + + documented as of this encounter Procedures + +--------+ + + + | Procedure Name | Priori | Date/Time | Associated Diagnosis | Comments | | | ty | | | | + +--------+ + + + | CBC NO DIFFERENTIAL | Routin | 05/21/2018 | | Results for this | | | e | 3:03 AM | | procedure are in the | | | | PDT | | results section. | + +--------+ + + + | B TYPE NATRIURETIC | Routin | 05/21/2018 | | Results for this | | PEPTIDE | e | 3:03 AM | | procedure are in the | | | | PDT | | results section. | + +--------+ + + + | BASIC METABOLIC | Routin | 05/21/2018 | | Results for this | | PANEL | e | 3:03 AM | | procedure are in the | | | | PDT | | results section. | + +--------+ + + + | CBC NO DIFFERENTIAL | Routin | 05/20/2018 | | Results for this | | | e | 5:38 AM | | procedure are in the | | | | PDT | | results section. | + +--------+ + + + | BASIC METABOLIC | Routin | 05/20/2018 | | Results for this | | PANEL | e | 5:38 AM | | procedure are in the | | | | PDT | | results section. | + +--------+ + + + | ECG 12 LEAD | Routin | 05/20/2018 | | Results for this | | | e | 4:29 AM | | procedure are in the | | | | PDT | | results section. | + +--------+ + + + | CV PTCA ONLY | Routin | 05/19/2018 | Congestive heart | Results for this | | | e | 5:14 PM | failure, unspecified | procedure are in the | | | | PDT | HF chronicity, | results section. | | | | | unspecified heart | | | | | | failure type (HCC) | | + +--------+ + + + | CV IVUS/OCT | Routin | 05/19/2018 | Congestive heart | Results for this | | | e | 5:14 PM | failure, unspecified | procedure are in the | | | | PDT | HF chronicity, | results section. | | | | | unspecified heart | | | | | | failure type ([facility]) | | + +--------+ + + + | CV FFR/IFR | Routin | 05/19/2018 | Congestive heart | Results for this | | | e | 5:14 PM | failure, unspecified | procedure are in the | | | | PDT | HF chronicity, | results section. | | | | | unspecified heart | | | | | | failure type (HCC) | | + +--------+ + + + | CV PERC MECH CIRC | Routin | 05/19/2018 | Congestive heart | Results for this | | SUPPORT | e | 5:14 PM | failure, unspecified | procedure are in the | | | | PDT | HF chronicity, | results section. | | | | | unspecified heart | | | | | | failure type (HCC) | | + +--------+ + + + | CV VAS LE ANGIO | Routin | 05/19/2018 | Congestive heart | Results for this | | | e | 5:14 PM | failure, unspecified | procedure are in the | | | | PDT | HF chronicity, | results section. | | | | | unspecified heart | | | | | | failure type ([facility]) | | + +--------+ + + + | CV RHC | Routin | 05/19/2018 | Congestive heart | Results for this | | | e | 5:14 PM | failure, unspecified | procedure are in the | | | | PDT | HF chronicity, | results section. | | | | | unspecified heart | | | | | | failure type ([facility]) | | + +--------+ + + + | POCT ACTIVATED | STAT | 05/19/2018 | | Results for this | | CLOTTING TIME | | 4:58 PM | | procedure are in the | | | | PDT | | results section. | + +--------+ + + + | POCT ACTIVATED | STAT | 05/19/2018 | | Results for this | | CLOTTING TIME | | 4:35 PM | | procedure are in the | | | | PDT | | results section. | + +--------+ + + + | POCT ACTIVATED | STAT | 05/19/2018 | | Results for this | | CLOTTING TIME | | 4:03 PM | | procedure are in the | | | | PDT | | results section. | + +--------+ + + + | BASIC METABOLIC | Routin | 05/19/2018 | | Results for this | | PANEL | e | 4:52 AM | | procedure are in the | | | | PDT | | results section. | + +--------+ + + + | VITAMIN D, | Add-On | 05/18/2018 | | Results for this | | DEFICIENCY SCREEN | | 1:54 PM | | procedure are in the | | (25-HYDROXY) | | PDT | | results section. | + +--------+ + + + | PFT PULMONARY | TOM | 05/17/2018 | | | | FUNCTION TESTING | | 5:21 PM | | | | ORDERS | | PDT | | | + +--------+ + + + | B TYPE NATRIURETIC | Routin | 05/17/2018 | | Results for this | | PEPTIDE | e | 3:48 AM | | procedure are in the | | | | PDT | | results section. | + +--------+ + + + | BASIC METABOLIC | Routin | 05/17/2018 | | Results for this | | PANEL | e | 3:48 AM | | procedure are in the | | | | PDT | | results section. | + +--------+ + + + | BASIC METABOLIC | Routin | 05/16/2018 | | Results for this | | PANEL | e | 6:08 AM | | procedure are in the | | | | PDT | | results section. | + +--------+ + + + | CBC NO DIFFERENTIAL | Routin | 05/15/2018 | | Results for this | | | e | 8:26 AM | | procedure are in the | | | | PDT | | results section. | + +--------+ + + + | BASIC METABOLIC | Routin | 05/15/2018 | | Results for this | | PANEL | e | 8:26 AM | | procedure are in the | | | | PDT | | results section. | + +--------+ + + + | POC GLUCOSE | Routin | 05/15/2018 | | Results for this | | | e | 7:25 AM | | procedure are in the | | | | PDT | | results section. | + +--------+ + + + | POC GLUCOSE | Routin | 05/14/2018 | | Results for this | | | e | 4:09 PM | | procedure are in the | | | | PDT | | results section. | + +--------+ + + + | POC GLUCOSE | Routin | 05/14/2018 | | Results for this | | | e | 11:14 AM | | procedure are in the | | | | PDT | | results section. | + +--------+ + + + | COMPREHENSIVE | Routin | 05/14/2018 | | Results for this | | METABOLIC PANEL | e | 9:27 AM | | procedure are in the | | | | PDT | | results section. | + +--------+ + + + | LABS - EXTERNAL SCAN | | 05/13/2018 | | Results for this | | | | 12:00 AM | | procedure are in the | | | | PDT | | results section. | + +--------+ + + + documented in this encounter Results CBC no Differential (05/21/2018 3:03 AM PDT) + + + +-------- -----+ + | Component | Value | Ref Range | Perform ed | Pathologist | | | | | At | Signature | + + + +-------- -----+ + | WBC | 6.1 | 3.8 - 11.0 K/uL | [facility] | | | | | | [facility] | | [facility] | | [facility] | | | | | | [facility] | | | | | | [facility] | | | | | | [facility] | | | | | | [facility] | | + + + +-------- -----+ + | RBC | 4.14 (L) | 4.20 - 5.70 | [facility] | | | | | M/uL | [facility] | | | | | [facility] | | | | | | [facility] | | | | | | [facility] | | | | | | [facility] | | | | | | [facility] | | + + + +-------- -----+ + | Hemoglobin | 13.0 (L) | 13.2 - 17.0 | [facility] | | | | | g/dL | [facility] | | | | | [facility] | | | | | | [facility] | | | | | | [facility] | | | | | | [facility] | | | | | | [facility] | | + + + +-------- -----+ + | Hct | 38.0 (L) | 39.0 - 50.0 % | [facility] | | | | | | [facility] | | | | | [facility] | | | | | | [facility] | | | | | | [facility] | | | | | | [facility] | | | | | | [facility] | | + + + +-------- -----+ + | MCV | 91.6 | 80.0 - 100.0 fL | [facility] | | | | | | [facility] | | | | | | [facility] | | | | | | [facility] | | | | | | [facility] | | | | | | [facility] | | | | | | [facility] | | + + + +-------- -----+ + | MCH | 31.3 | 27.0 - 34.0 pg | [facility] | | | | | | [facility] | | | | | [facility] | | | | | | [facility] | | | | | | [facility] | | | | | | [facility] | | | | | | [facility] | | + + + +-------- -----+ + | MCHC | 34.1 | 32.0 - 35.5 | [facility] | | | | | g/dL | [facility] | | | | | | [facility] | | | | | | [facility] | | | | | | [facility] | | | | | | [facility] | | | | | | [facility] | | + + + +-------- -----+ + | RDW-CV | 14.3 | 11.0 - 15.5 % | [facility] | | | | | | [facility] | | | | | [facility] | | | | | | [facility] | | | | | | [facility] | | | | | | [facility] | | | | | | [facility] | | + + + +-------- -----+ + | Platelet | 135 (L) | 150 - 400 K/uL | [facility] | | | Count | | | [facility] | | | | | | [facility] | | | | | | [facility] | | | | | | [facility] | | | | | | [facility] | | | | | | [facility] | | + + + +-------- -----+ + | MPV | 8.8Comment: Performed | 7.5 - 11.2 fL | [facility] | | | | by [facility] [address], | | [facility] | | | | [place] [address] | | HEART | | | |Performed by [facility] [address], [place] [address] | | MEDICAL | | | | | | CENTER | | | | | | [facility] | | | | | | [facility] | | + + + +-------- -----+ + + + | Specimen | + + | Blood specimen | | (specimen) | + + + + + + + | Performing | Address | City/State/Zipcode | Phone Number | | Organization | | | | + + + + + | [facility] | [address] | [place] [address] | | | [facility] | | | | | [facility] | | | | + + + + + Basic Metabolic Panel (05/21/2018 3:03 AM PDT) + + + + + + | Component | Value | Ref Range | Performed | Pathologist | | | | | At | Signature | + + + + + + | Na | 141 | 135 - 145 | [facility] | | | | | mmol/L | [facility] | | | | | | [facility] | | | | | | MEDICAL | | | | | | CENTER | | | | | | LABORATORY | | | | | | [facility] | | + + + + + + | K | 4.5 | 3.5 - 5.0 | [facility] | | | | | mmol/L | [facility] | | | | | | [facility] | | | | | | MED[facility] | | | | | | CENTER | | | | | | LAB[facility]AT[facility] | | | | | | [facility] | | + + + + + + | Cl | 108 | 99 - 109 mmol/L | [facility] | | | | | | [facility] | | | | | | [facility] | | | | | | [facility] | | | | | | [facility] | | | | | | LAB[facility]AT[facility] | | | | | | [facility] | | + + + + + + | CO2 | 25 | 21 - 28 mmol/L | [facility] | | | | | | [facility] | | | | | | [facility] | | | | | | [facility] | | | | | | CENTER | | | | | | LAB[facility]ATORY | | | | | | [facility] | | + + + + + + | Anion Gap | 8 | 5 - 16 mmol/L | [facility] | | | | | | [facility] | | | | | | [facility] | | | | | | [facility] | | | | | | [facility] | | | | | | LAB[facility]ATORY | | | | | | [facility] | | + + + + + + | Calcium | 8.7 | 8.5 - 10.2 | [facility] | | | | | mg/dL | [facility] | | | | | | [facility] | | | | | | MEDICAL | | | | | | CENTER | | | | | | LABORATORY | | | | | | [facility] | | + + + + + + | BUN | 24 | 8 - 25 mg/dL | [facility] | | | | | | [facility] | | | | | | [facility] | | | | | | [facility] | | | | | | CENTER | | | | | | LABORATORY | | | | | | [facility] | | + + + + + + | Creatinine | 1.69 (H) | 0.70 - 1.30 | [facility] | | | | | mg/dL | [facility] | | | | | | [facility] | | | | | | MED[facility] | | | | | | CENTER | | | | | | LABORATORY | | | | | | [facility] | | + + + + + + | Glucose | 102 (H) | 65 - 99 mg/dL | [facility] | | | | | | [facility] | | | | | [facility] | | | | | | MED[facility] | | | | | | CENTER | | | | | | LABORATORY | | | | | | [facility] | | + + + + + + | Estimated | 42 (L)Comment: eGFR<60 | >=90 | [facility] | | | GFR | consistent with impaired | mL/min/1.73m2 | [facility] | | | | kidney | | HEART | | | | function.Performed by | | MEDICAL | | | | [facility] [address], | | CENTER | | | | [place] [address] | | LABORATORY | | | | | | [facility] | | + + + + + + + + | Specimen | + + | Blood specimen | | (specimen) | + + + + + + + | Performing | Address | City/State/Zipcode | Phone Number | | Organization | | | | + + + + + | [facility] | [address] [place] | [place] [address] | | | [facility] | | | | | [facility] | | | | + + + + + B Type Natriuretic Peptide (05/21/2018 3:03 AM PDT) + + + + + + | Component | Value | Ref Range | Performed | Pathologist | | | | | At | Signature | + + + + + + | BNP | 260 (H)Comment: | <=100 pg/mL | [facility] | | | | Performed by [facility] [address] | | [facility] | | | | [address], [place] | | HEART | | | | | | MEDICAL | | | | | | CENTER | | | | | | LABORATORY | | | | | | [facility] | | + + + + + + + + | Specimen | + + | Blood specimen | | (specimen) | + + + + + + + | Performing | Address | City/State/Zipcode | Phone Number | | Organization | | | | + + + + + | [facility] | [address] | [place] | | | [facility] | | | | | LABORATORY [facility] | | | | + + + + + CBC no Differential (05/20/2018 5:38 AM PDT) + + + +-------- -----+ + | Component | Value | Ref Range | Perform ed | Pathologist | | | | | At | Signature | + + + +-------- -----+ + | WBC | 8.0 | 3.8 - 11.0 K/uL | [facility] | | | | | [facility] | | | | | [facility] | | | | | | [facility] | | | | | | [facility]ENTER | | | | | | LAB[facility]AT [facility] | | | | | | [facility] | | + + + +-------- -----+ + | RBC | 4.30 | 4.20 - 5.70 | [facility] | | | | | M/uL | [facility] | | | | | | [facility] | | | | | | MEDICAL | | | | | | CENTER | | | | | | LABORAT [facility] | | | | | | [facility] | | + + + +-------- -----+ + | Hemoglobin | 13.5 | 13.2 - 17.0 | [facility] | | | | | g/dL | [facility] | | | | | | [facility] | | | | | | MEDICAL | | | | | | CENTER | | | | | | LABORAT [facility] | | | | | | [facility] | | + + + +-------- -----+ + | Hct | 39.5 | 39.0 - 50.0 % | [facility] | | | | | [facility] | | | | | | [facility] | | | | | | MEDICAL | | | | | | CENTER | | | | | | LABORAT [facility] | | | | | | [facility] | | + + + +-------- -----+ + | MCV | 91.9 | 80.0 - 100.0 fL | [facility] | | | | | | [facility] | | | | | | [facility] | | | | | | MEDICAL | | | | | | CENTER | | | | | | LABORAT [facility] | | | | | | [facility] | | + + + +-------- -----+ + | MCH | 31.5 | 27.0 - 34.0 pg | [facility] | | | | | | [facility] | | | | | | [facility] | | | | | | MEDICAL | | | | | | CENTER | | | | | | LABORAT [facility] | | | | | | [facility] | | + + + +-------- -----+ + | MCHC | 34.3 | 32.0 - 35.5 | [facility] | | | | | g/dL | [facility] | | | | | | [facility] | | | | | | MEDICAL | | | | | | CENTER | | | | | | LABORAT [facility] | | | | | | [facility] | | + + + +-------- -----+ + | RDW-CV | 14.4 | 11.0 - 15.5 % | [facility] | | | | | | [facility] | | | | | | [facility] | | | | | | MEDICAL | | | | | | CENTER | | | | | | LABORAT [facility] | | | | | | [facility] | | + + + +-------- -----+ + | Platelet | 170 | 150 - 400 K/uL | [facility] | | | Count | | | [facility] | | | | | | HEART | | | | | | MEDICAL | | | | | | CENTER | | | | | | LABORAT [facility] | | | | | | [facility] | | + + + +-------- -----+ + | MPV | 8.7Comment: Performed | 7.5 - 11.2 fL | [facility] | | | | by [facility] [address], | | [facility]CR[facility] | | | | [place] [address] | | HEART | | | |Performed by [facility] [address], [place] [address] | | MEDICAL | | | | | | CENTER | | | | | | LABORAT OR[facility] | | | | | | [facility] | | + + + +-------- -----+ + + + | Specimen | + + | Blood specimen | | (specimen) | + + + + + + + | Performing | Address | City/State/Zipcode | Phone Number | | Organization | | | | + + + + + | [facility] | [address] | [place] [address] | | | [facility] | | | | | LABORATORY [facility] | | | | + + + + + Basic Metabolic Panel (05/20/2018 5:38 AM PDT) + + + + + + | Component | Value | Ref Range | Performed | Pathologist | | | | | At | Signature | + + + + + + | Na | 141 | 135 - 145 | [facility] | | | | | mmol/L | [facility] | | | | | | HEART | | | | | | MEDICAL | | | | | | CENTER | | | | | | LABORATORY | | | | | | [facility] | | + + + + + + | K | 4.6 | 3.5 - 5.0 | [facility] | | | | | mmol/L | [facility] | | | | | | HEART | | | | | | MEDICAL | | | | | | CENTER | | | | | | LABORATORY | | | | | | [facility] | | + + + + + + | Cl | 107 | 99 - 109 mmol/L | [facility] | | | | | | [facility] | | | | | | [facility] | | | | | | MEDICAL | | | | | | CENTER | | | | | | LABORATORY | | | | | | [facility] | | + + + + + + | CO2 | 27 | 21 - 28 mmol/L | [facility] | | | | | | [facility] | | | | | | HE[facility] | | | | | | MEDICAL | | | | | | CENTER | | | | | | LABORATORY | | | | | | [facility] | | + + + + + + | Anion Gap | 7 | 5 - 16 mmol/L | [facility] | | | | | | [facility] | | | | | | [facility] | | | | | | MEDICAL | | | | | | CENTER | | | | | | LABORATORY | | | | | | [facility] | | + + + + + + | Calcium | 8.5 | 8.5 - 10.2 | [facility] | | | | | mg/dL | [facility] | | | | | | HEART | | | | | | MEDICAL | | | | | | CENTER | | | | | | LABORATORY | | | | | | [facility] | | + + + + + + | BUN | 27 (H) | 8 - 25 mg/dL | [facility] | | | | | | [facility] | | | | | | HEART | | | | | | MEDICAL | | | | | | CENTER | | | | | | LABORATORY | | | | | | [facility] | | + + + + + + | Creatinine | 1.75 (H) | 0.70 - 1.30 | [facility] | | | | | mg/dL | [facility] | | | | | | HEART | | | | | | MEDICAL | | | | | | CENTER | | | | | | LABORATORY | | | | | | [facility] | | + + + + + + | Glucose | 102 (H) | 65 - 99 mg/dL | [facility] | | | | | | [facility] | | | | | | HEART | | | | | | MEDICAL | | | | | | CENTER | | | | | | LABORATORY | | | | | | [facility] | | + + + + + + | Estimated | 41 (L)Comment: eGFR<60 | >=90 | [facility] | | | GFR | consistent with impaired | mL/min/1.73m2 | [facility] | | | | kidney | | HEART | | | | function.Performed by | | MEDICAL | | | | [facility] [address], | | CENTER | | | | [place] [address] | | LABORATORY | | | | | | [facility] | | + + + + + + + + | Specimen | + + | Blood specimen | | (specimen) | + + + + + + + | Performing | Address | City/State/Zipcode | Phone Number | | Organization | | | | + + + + + | [facility] | [address] | [place] [address] | | | [facility] | | | | | [place] | | | | + + + + + ECG 12 lead (05/20/2018 4:29 AM PDT) + + | Specimen | + + | | + + + + + | Narrative | Performed At | + + + | HEART RATE:62 | [facility] | | bpmRR Interval:968 msAtrial Rate:64 msP-R Interval:176 msP | [facility] | | Duration:196 msP Horizontal [place]:-6 degP Front [place]:72 degQ Onset:508 | | | msQRSD Interval:148 msQT Interval:500 msQTcB:508 msQTcF:505 msQRS | | | Horizontal [place]:217 degQRS [place]:167 degI-40 Horizontal [place]:188 | | | degI-40 Front [place]:148 degT-40 Horizontal [place]:231 degT-40 Front | | | [place]:163 degT Horizontal [place]: degT Wave [place]:15 degS-T Horizontal | | | [place]:67 degS-T Front [place]:-59 degSeverity:- ABNORMAL ECG | | | -INTERP:ATRIAL-SENSED VENTRICULAR-PACED COMPLEXESElectronically signed | | | by: , 05-20-2018 05:48:28 | | |QTcB:508 ms | | |QTcF:505 ms | | |QRS Horizontal [place]:217 deg | | |QRS [place]:167 deg | | |I-40 Horizontal [place]:188 deg | | |I-40 Front [place]:148 deg | | |T-40 Horizontal [place]:231 deg | | |T-40 Front [place]:163 deg | | |T Horizontal [place]: deg | | |T Wave [place]:15 deg | | |S-T Horizontal [place]:67 deg | | |S-T Front [place]:-59 deg | | |Severity:- ABNORMAL ECG - | | |INTERP:ATRIAL-SENSED VENTRICULAR-PACED COMPLEXES | | |Electronically signed by: , 05-20-2018 05:48:28 | | + + + + + + + + | Performing | Address | City/State/Zipcode | Phone Number | | Organization | | | | + + + + + | [facility] | [address] | [place] [address] | [phone] | + + + + + CV CARDIAC PROCEDURE (05/19/2018 5:14 PM PDT) + +-------+ + + + | Component | Value | Ref Range | Performed | Pathologist | | | | | At | Signature | + +-------+ + + + | LVEF-LVGRAM | 25 | % | [facility] | | | CARDIAC | | | | | | CATH | | | | | + +-------+ + + + + + | Specimen | + + | | + + + + | Addenda | + + | Addendum by Khurram Canas MD on 05/19/2018 5:25 PM CORONARY CATH and INTERVENTION | | REPORT PATIENT NAME/: Bob Will, (1955) MEDICAL RECORD | | NUMBER: [id number] DATE OF SERVICE: 05/19/2018 PRIMARY ASSEMBLY MACHINE OPERATOR: Macho | | MD Arnulfo MANAGED CARE NURSE: Khurram Canas MD PROCEDURES | | PERFORMED: Single-Vessel Coronary Intervention: - Intra-vascular ultrasound (IVUS) | | and angioplasty only to the LM into the ostial circumflex - Instantaneous Wave-Free | | Ratio (iFR) to the left anterior descending Left Heart Cath Right Heart Cath | | Impella Supported PCI Indications: Coronary artery disease and cardiomyopathy | | Brief Description of Procedure Written consent was obtained from the patient. Prior | | to the start of this procedure a 'time out' had been preformed and the patient had | | been prepped and draped in the usual sterile fashion. Conscious sedation was used for | | this procedure. Using SonoSite guidance to visualize the vessel, the modified | | Seldinger technique was used and the sheath was placed in the femoral artery, it was a | | 7 Fr. sheath on the left side. A 7 Fr venous sheath was also placed in the left | | femoral vein and using a balloon tipped catheter a right heart cath was done with | | thermal outputs obtained (no Alessandro due to his O2 needs). All equipment was exchanged | | over a wire and carefully aspirated and flushed. For P2Y12 inhibition the patient | | was already on Plavix, so no bolus was given and heparin was administered for | | anticoagulation. A CLS 4.0 guiding catheter was used for this procedure. A CLS 3.5 | | guider was also tried, but did not work well. First a FlowWire was placed in the | | left anterior descending and iFR was negative at 0.94. Then a BMW interventional | | wire was used to cross the lesion in the circumflex An IVUS-guided intervention | | was performed in the standard fashion. Initially, a 2.5 regular balloon was used, | | then a 3.5 NC, then IVUS and finally a 3.75 NC. Each balloon inflation was done in | | the circumflex, hanging back into the left main. He became more hypotensive with | | each balloon inflation. At the conclusion an angiogram and follow-up IVUS showed a | | good result. The wire and guide were removed and the sheath was removed and | | hemostasis obtained with an Angio Seal. Impella: Indications - LM/circ stenosis | | with EF 25% and hypotension in a patient with acute on chronic systolic heart failure | | Placement - using SonoSite and a micro cath a 14 [place] was eventually placed in | | the right femoral artery after 2 PerClose devices had been deployed. A pigtail was | | used to cross the aortic valve and left heart cath was done to assess LVEDP. The | | device was then placed in the standard fashion and used for hemodynamic support | | throughout this intervention, therapeutic ACT's were archived. The Impella was | | placed prior to the start of the intervention and prior to placing the guiding | | catheter. Removal - at the completion of the intervention, after the guide was | | removed, the Impella was weaned down. It was then removed in standard fashion and | | the sheath removed and hemostasis archived with the 2 PerClose's. MODERATE | | SEDATION: I was present in the room when moderate sedation was initially | | administered to the patient at 1525 and continued until 1657. The trained nursing | | staff that monitored the patient and administered the medication, have been documented | | in the case log, please see that separate report for details. Also recorded in the | | case log are the total amounts and routes of the sedation medications used for this | | patient. The patient | | | | s vital signs, level of consciousness, neurological, cardiovascular, and pulmonary | | status at the conclusion of the procedure were stable. Pre and post-sedation | | activities were reviewed by me. COMPLICATIONS: None Contrast: 55cc | | IVUS/FFR/iFR: iFR of the left anterior descending was 0.94 and IVUS of the circ and | | LM post angioplasty showed a good lumen area. CONCLUSIONS: 1. 95% stenosis of | | the ostial circumflex treated with angioplasty only with a 3.75 x 16 NC balloon with | | <10% residual stenosis. The balloon was 2. iFR of the LAD was negative at 0.94% | | PLAN: 1. In addition to secondary risk factor modification, Mr. Will will be | | advised to be on aspirin indefinitely and dual anti-platelet therapy with a P2Y12 | | inhibitor for at least the next 3 months. 2. 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 Repeat labs in AM to reassess his chronic renal | | failure Thank you for allowing [facility] to be involved in the care | | of this patient. Please call with any questions . Electronically | | signed by: Khurram Canas MD on 05/19/2018 at 16:54 [facility] | | PRIMARY CARE PROVIDER: Jeet King MD Performed at [facility] | | [facility] | + + | Addendum by Khurram Canas MD on 05/19/2018 5:23 PM CORONARY CATH and INTERVENTION | | REPORT PATIENT NAME/: Bob Will, (1955) MEDICAL RECORD | | NUMBER: [id number] DATE OF SERVICE: 05/19/2018 PRIMARY ASSEMBLY MACHINE OPERATOR: Macho | | MD Arnulfo MANAGED CARE NURSE: Khurram Canas MD PROCEDURES | | PERFORMED: Single-Vessel Coronary Intervention: - Intra-vascular ultrasound (IVUS) | | and angioplasty only to the LM into the ostial circumflex - Instantaneous Wave-Free | | Ratio (iFR) to the left anterior descending Left Heart Cath Right Heart Cath | | Impella Supported PCI Indications: Coronary artery disease and cardiomyopathy | | Brief Description of Procedure Written consent was obtained from the patient. Prior | | to the start of this procedure a 'time out' had been preformed and the patient had | | been prepped and draped in the usual sterile fashion. Conscious sedation was used for | | this procedure. Using SonoSite guidance to visualize the vessel, the modified | | Seldinger technique was used and the sheath was placed in the femoral artery, it was a | | 7 Fr. sheath on the left side. A 7 Fr venous sheath was also placed in the left | | femoral vein and using a balloon tipped catheter a right heart cath was done with | | thermal outputs obtained (no Alessandro due to his O2 needs). All equipment was exchanged | | over a wire and carefully aspirated and flushed. For P2Y12 inhibition the patient | | was already on Plavix, so no bolus was given and heparin was administered for | | anticoagulation. A CLS 4.0 guiding catheter was used for this procedure. A CLS 3.5 | | guider was also tried, but did not work well. First a FlowWire was placed in the | | left anterior descending and iFR was negative at 0.94. Then a BMW interventional | | wire was used to cross the lesion in the circumflex An IVUS-guided intervention | | was performed in the standard fashion. Initially, a 2.5 regular balloon was used, | | then a 3.5 NC, then IVUS and finally a 3.75 NC. Each balloon inflation was done in | | the circumflex, hanging back into the left main. He became more hypotensive with | | each balloon inflation. At the conclusion an angiogram and follow-up IVUS showed a | | good result. The wire and guide were removed and the sheath was removed and | | hemostasis obtained with an Angio Seal. Impella: Indications - LM/circ stenosis | | with EF 25% and hypotension in a patient with acute on chronic systolic heart failure | | Placement - using SonoSite and a micro cath a 14 [place] was eventually placed in | | the right femoral artery after 2 PerClose devices had been deployed. A pigtail was | | used to cross the aortic valve and left heart cath was done to assess LVEDP. The | | device was then placed in the standard fashion and used for hemodynamic support | | throughout this intervention, therapeutic ACT's were archived. The Impella was | | placed prior to the start of the intervention and prior to placing the guiding | | catheter. Removal - at the completion of the intervention, after the guide was | | removed, the Impella was weaned down. It was then removed in standard fashion and | | the sheath removed and hemostasis archived with the 2 PerClose's. MODERATE | | SEDATION: I was present in the room when moderate sedation was initially | | administered to the patient at 1525 and continued until 1657. The trained nursing | | staff that monitored the patient and administered the medication, have been documented | | in the case log, please see that separate report for details. Also recorded in the | | case log are the total amounts and routes of the sedation medications used for this | | patient. The patient | | | | s vital signs, level of consciousness, neurological, cardiovascular, and pulmonary | | status at the conclusion of the procedure were stable. Pre and post-sedation | | activities were reviewed by me. COMPLICATIONS: None Contrast: 55cc | | IVUS/FFR/iFR: iFR of the left anterior descending was 0.94 and IVUS of the circ and | | LM post angioplasty showed a good lumen area. CONCLUSIONS: 1. 95% stenosis of | | the ostial circumflex treated with angioplasty only with a 3.75 x 16 NC balloon with | | <10% residual stenosis. The balloon was 2. iFR of the LAD was negative at 0.94% | | PLAN: 1. In addition to secondary risk factor modification, Mr. Will will be | | advised to be on aspirin indefinitely and dual anti-platelet therapy with a P2Y12 | | inhibitor for at least the next 3 months. 2. 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 Repeat labs in AM to reassess his chronic renal | | failure Thank you for allowing [facility] to be involved in the care | | of this patient. Please call with any questions . Electronically | | signed by: Khurram Canas MD on 05/19/2018 at 16:54 [facility] | | PRIMARY CARE PROVIDER: Jeet King MD Performed at [facility] | | [facility] | + + | Addendum by Khurram Canas MD on 05/19/2018 5:21 PM CORONARY CATH and INTERVENTION | | REPORT PATIENT NAME/: Bob Will, (1955) MEDICAL RECORD | | NUMBER: [id number] DATE OF SERVICE: 05/19/2018 PRIMARY ASSEMBLY MACHINE OPERATOR: Macho | | MD Arnulfo MANAGED CARE NURSE: Khurram Canas MD PROCEDURES | | PERFORMED: Single-Vessel Coronary Intervention: - Intra-vascular ultrasound (IVUS) | | and angioplasty only to the LM into the ostial circumflex - Instantaneous Wave-Free | | Ratio (iFR) to the left anterior descending Left Heart Cath Right Heart Cath | | Impella Supported PCI Indications: Coronary artery disease and cardiomyopathy | | Brief Description of Procedure Written consent was obtained from the patient. Prior | | to the start of this procedure a 'time out' had been preformed and the patient had | | been prepped and draped in the usual sterile fashion. Conscious sedation was used for | | this procedure. Using SonoSite guidance to visualize the vessel, the modified | | Seldinger technique was used and the sheath was placed in the femoral artery, it was a | | 7 Fr. sheath on the left side. A 7 Fr venous sheath was also placed in the left | | femoral vein and using a balloon tipped catheter a right heart cath was done with | | thermal outputs obtained (no Alessandro due to his O2 needs). All equipment was exchanged | | over a wire and carefully aspirated and flushed. For P2Y12 inhibition the patient | | was already on Plavix, so no bolus was given and heparin was administered for | | anticoagulation. A CLS 4.0 guiding catheter was used for this procedure. A CLS 3.5 | | guider was also tried, but did not work well. First a FlowWire was placed in the | | left anterior descending and iFR was negative at 0.94. Then a BMW interventional | | wire was used to cross the lesion in the circumflex An IVUS-guided intervention | | was performed in the standard fashion. Initially, a 2.5 regular balloon was used, | | then a 3.5 NC, then IVUS and finally a 3.75 NC. Each balloon inflation was done in | | the circumflex, hanging back into the left main. He became more hypotensive with | | each balloon inflation. At the conclusion an angiogram and follow-up IVUS showed a | | good result. The wire and guide were removed and the sheath was removed and | | hemostasis obtained with an Angio Seal. Impella: Indications - LM/circ stenosis | | with EF 25% and hypotension in a patient with acute on chronic systolic heart failure | | Placement - using SonoSite and a micro cath a 14 [place] was eventually placed in | | the right femoral artery after 2 PerClose devices had been deployed. A pigtail was | | used to cross the aortic valve and left heart cath was done to assess LVEDP. The | | device was then placed in the standard fashion and used for hemodynamic support | | throughout this intervention, therapeutic ACT's were archived. The Impella was | | placed prior to the start of the intervention and prior to placing the guiding | | catheter. Removal - at the completion of the intervention, after the guide was | | removed, the Impella was weaned down. It was then removed in standard fashion and | | the sheath removed and hemostasis archived with the 2 PerClose's. MODERATE | | SEDATION: I was present in the room when moderate sedation was initially | | administered to the patient at 1525 and continued until 1657. The trained nursing | | staff that monitored the patient and administered the medication, have been documented | | in the case log, please see that separate report for details. Also recorded in the | | case log are the total amounts and routes of the sedation medications used for this | | patient. The patient | | | | s vital signs, level of consciousness, neurological, cardiovascular, and pulmonary | | status at the conclusion of the procedure were stable. Pre and post-sedation | | activities were reviewed by me. COMPLICATIONS: None Contrast: 55cc | | IVUS/FFR/iFR: iFR of the left anterior descending was 0.94 and IVUS of the circ and | | LM post angioplasty showed a good lumen area. CONCLUSIONS: 1. 95% stenosis of | | the ostial circumflex treated with angioplasty only with a 3.75 x 16 NC balloon with | | <10% residual stenosis. The balloon was 2. iFR of the LAD was negative at 0.94% | | PLAN: 1. In addition to secondary risk factor modification, Mr. Will will be | | advised to be on aspirin indefinitely and dual anti-platelet therapy with a P2Y12 | | inhibitor for at least the next 3 months. 2. 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 Repeat labs in AM to reassess his chronic renal | | failure Thank you for allowing [facility] to be involved in the care | | of this patient. Please call with any questions . Electronically | | signed by: Khurram Canas MD on 05/19/2018 at 16:54 [facility] | | PRIMARY CARE PROVIDER: Jeet King MD Performed at [facility] | + + + + + | Narrative | Performed At | + + + | [facility]ram Isabel | [facility] | | MD Missael 05/20/2018 18:40CORONARY CATH and INTERVENTION REPORT | | | PATIENT NAME/: Bob Will, (1955)MEDICAL RECORD | | | NUMBER: [id number] OF SERVICE: 05/19/2018PRIMARY | | | ASSEMBLY MACHINE OPERATOR: Randy Figueroa MD MANAGED CARE NURSE: | | | Khurram Canas MD PROCEDURES PERFORMED:Single-Vessel Coronary | | | Intervention: - Intra-vascular ultrasound (IVUS) and angioplasty only | | | to the LM into the ostial circumflex - Instantaneous Wave-Free Ratio | | | (iFR) to the left anterior descendingLeft Heart CathRight Heart | | | CathImpella Supported PCI Indications: Coronary artery disease and | | | cardiomyopathy Brief Description of ProcedureWritten consent was | | | obtained from the patient. Prior to the start of this procedure a | | | 'time out' had been preformed and the patient had been prepped and | | | draped in the usual sterile fashion. Conscious sedation was used for | | | this procedure. Using SonoSite guidance to visualize the vessel, the | | | modified Seldinger technique was used and the sheath was placed in | | | the femoral artery, it was a 7 Fr. sheath on the left side. A 7 Fr | | | venous sheath was also placed in the left femoral vein and using a | | | balloon tipped catheter a right heart cath was done with thermal | | | outputs obtained (no Alessandro due to his O2 needs). All equipment was | | | exchanged over a wire and carefully aspirated and flushed. For P2Y12 | | | inhibition the patient was already on Plavix, so no bolus was given | | | and heparin was administered for anticoagulation. A CLS 4.0 guiding | | | catheter was used for this procedure. A CLS 3.5 guider was also | | | tried, but did not work well. First a FlowWire was placed in the | | | left anterior descending and iFR was negative at 0.94. Then a BMW | | | interventional wire was used to cross the lesion in the circumflex | | | An IVUS-guided intervention was performed in the standard fashion. | | | Initially, a 2.5 regular balloon was used, then a 3.5 NC, then IVUS | | | and finally a 3.75 NC. Each balloon inflation was done in the | | | circumflex, hanging back into the left main. He became more | | | hypotensive with each balloon inflation. At the conclusion an | | | angiogram and follow-up IVUS showed a good result. The wire and | | | guide were removed and the sheath was removed and hemostasis obtained | | | with an Angio Seal. Impella:Indications - LM/circ stenosis with EF 25% | | | and hypotension in a patient with acute on chronic systolic heart | | | failure Placement - using SonoSite and a micro cath a 14 [place] was | | | eventually placed in the right femoral artery after 2 PerClose devices | | | had been deployed. A pigtail was used to cross the aortic valve and | | | left heart cath was done to assess LVEDP. The device was then | | | placed in the standard fashion and used for hemodynamic support | | | throughout this intervention, therapeutic ACT's were archived. The | | | Impella was placed prior to the start of the intervention and prior to | | | placing the guiding catheter. Removal - at the completion of the | | | intervention, after the guide was removed, the Impella was weaned | | | down. It was then removed in standard fashion and the sheath removed | | | and hemostasis archived with the 2 previously deployed PerClose | | | devices. MODERATE SEDATION: I was present in the room when moderate | | | sedation was initially administered to the patient at 1525 and | | | continued until 1657. The trained nursing staff that monitored the | | | patient and administered the medication, have been documented in the | | | case log, please see that separate report for details. Also recorded | | | in the case log are the total amounts and routes of the sedation | | | medications used for this patient. The patient | | | | | | s vital signs, level of consciousness, neurological, cardiovascular, | | | and pulmonary status at the conclusion of the procedure were stable. | | | Pre and post-sedation activities were reviewed by me. COMPLICATIONS: | | | None Contrast: 55cc IVUS/FFR/iFR: iFR of the left anterior | | | descending was 0.94 and IVUS of the circ and LM post angioplasty | | | showed a good lumen area. CONCLUSIONS:1. 95% stenosis of the ostial | | | circumflex treated with angioplasty only with a 3.75 x 16 NC balloon | | | with <10% residual stenosis. The balloon was2. iFR of the LAD was | | | negative at 0.94 PLAN:1. In addition to secondary risk factor | | | modification, Mr. Will will be advised to be on aspirin | | | indefinitely and dual anti-platelet therapy with a P2Y12 inhibitor for | | | at least the next 3 months.2. Continued diuretics for heart failure | | | and med treat for his ischemic CMP3. Repeat labs in AM to reassess his | | | chronic renal failure Thank you for allowing [facility] | | | to be involved in the care of this patient. Please call with any | | | questions . [facility] | | PROVIDER:Jeet King MD Performed at [facility] | | | [facility] | | |administered to the patient at 1525 and continued until 1657. | | |The trained nursing staff that monitored the patient and | | |administered the medication, have been documented in the case | | |log, please see that separate report for details. Also recorded | | |in the case log are the total amounts and routes of the sedation | | |medications used for this patient. The patient s vital signs, | | |level of consciousness, neurological, cardiovascular, and | | |pulmonary status at the conclusion of the procedure were stable. | | |Pre and post-sedation activities were reviewed by me. | | | | | |COMPLICATIONS: None | | | | | |Contrast: 55cc | | | | | |IVUS/FFR/iFR: iFR of the left anterior descending was 0.94 and | | |IVUS of the circ and LM post angioplasty showed a good lumen | | |area. | | | | | | | | |CONCLUSIONS: | | |1. 95% stenosis of the ostial circumflex treated with angioplasty | | |only with a 3.75 x 16 NC balloon with <10% residual stenosis. | | |The balloon was | | |2. iFR of the LAD was negative at 0.94 | | | | | | | | |PLAN: | | |1. In addition to secondary risk factor modification, | | |Mike will be advised to be on aspirin indefinitely and dual | | |anti-platelet therapy with a P2Y12 inhibitor for at least the | | |next 3 months. | | |2. 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 Repeat labs in AM to reassess his chronic renal failure | | | | | | | | |Thank you for allowing [facility] to be involved in | | |the care of this patient. Please call with any questions [phone] | | |[phone]. | | | | | | | | |[facility] | | | | | | | | | | | | | | |PRIMARY CARE PROVIDER: | | |Jeet King MD | | | | | | | | | | | | | | |Performed at [facility] | | + + + + +---------+ + + | Performing | Address | City/State/Zipcode | Phone Number | | Organization | | | | + +---------+ + + | [facility] | | | | + +---------+ + + POCT activated clotting time (05/19/2018 4:58 PM PDT) + + + + + + | Component | Value | Ref Range | Performed | Pathologist | | | | | At | Signature | + + + + + + | Activated | 400 (A)Comment: greater | 105 - 167 sec | [facility] | | | Clotting | than 400; response 318 | | SACRED | | | time, POC | | | HEART | | | | | | MEDICAL | | | | | | CENTER | | | | | | LABORATORY | | + + + + + + | Result | | | [facility] | | | Verified | | | [facility] | | | By: | | | HEART | | | | | | MEDICAL | | | | | | CENTER | | | | | | LABORATORY | | + + + + + + + + | Specimen | + + | Blood | + + + + + + + | Performing | Address | City/State/Zipcode | Phone Number | | Organization | | | | + + + + + | [facility] | [address] | [place] [address] | | | HEART [facility] | | | | | LABORATORY | | | | + + + + + POCT activated clotting time (05/19/2018 4:35 PM PDT) + + + + + + | Component | Value | Ref Range | Performed | Pathologist | | | | | At | Signature | + + + + + + | Activated | 382 (A)Comment: response | 105 - 167 sec | [facility] | | | Clotting | 294 | | SACRED | | | time, POC | | | HEART | | | | | | MEDICAL | | | | | | CENTER | | | | | | LABORATORY | | + + + + + + | Result | | | [facility] | | | Verified | | | SACR[facility] | | | By: | | | HEART | | | | | | MEDICAL | | | | | | CENTER | | | | | | LABORATORY | | + + + + + + + + | Specimen | + + | Blood | + + + + + + + | Performing | Address | City/State/Zipcode | Phone Number | | Organization | | | | + + + + + | [facility] | [address] | [place] [address] | | | [facility] | | | | | LABORATORY | | | | + + + + + POCT activated clotting time (05/19/2018 4:03 PM PDT) + + + + + + | Component | Value | Ref Range | Performed | Pathologist | | | | | At | Signature | + + + + + + | Activated | 305 (A)Comment: response | 105 - 167 sec | [facility] | | | Clotting | 227 | | SACRED | | | time, POC | | | HEART | | | | | | MEDICAL | | | | | | CENTER | | | | | | LABORATORY | | + + + + + + | Result | | | [facility] | | | Verified | | | SACRED | | | By: | | | HEART | | | | | | MEDICAL | | | | | | CENTER | | | | | | LABORATORY | | + + + + + + + + | Specimen | + + | Blood | + + + + + + + | Performing | Address | City/State/Zipcode | Phone Number | | Organization | | | | + + + + + | [facility] | [address] | [place] [address] | | | [facility] | | | | | LABORATORY | | | | + + + + + Basic Metabolic Panel (05/19/2018 4:52 AM PDT) + + + + + + | Component | Value | Ref Range | Performed | Pathologist | | | | | At | Signature | + + + + + + | Na | 140 | 135 - 145 | [facility] | | | | | mmol/L | SACRED | | | | | | HEART | | | | | | MEDICAL | | | | | | CENTER | | | | | | LABORATORY | | | | | | [place] | | + + + + + + | K | 4.4 | 3.5 - 5.0 | [facility] | | | | | mmol/L | SACRED | | | | | | HEART | | | | | | MEDICAL | | | | | | CENTER | | | | | | LABORATORY | | | | | | [place] | | + + + + + + | Cl | 105 | 99 - 109 mmol/L | [facility] | | | | | | SACRED | | | | | | HEART | | | | | | MEDICAL | | | | | | CENTER | | | | | | LABORATORY | | | | | | [place] | | + + + + + + | CO2 | 26 | 21 - 28 mmol/L | [facility] | | | | | | SACRED | | | | | | HEART | | | | | | MEDICAL | | | | | | CENTER | | | | | | LABORATORY | | | | | | [place] | | + + + + + + | Anion Gap | 9 | 5 - 16 mmol/L | [facility] | | | | | | [facility]CR[facility] | | | | | | HEART | | | | | | MEDICAL | | | | | | CENTER | | | | | | LABORATORY | | | | | | [place] | | + + + + + + | Calcium | 8.2 (L) | 8.5 - 10.2 | [facility] | | | | | mg/dL | SACRED | | | | | | HEART | | | | | | MEDICAL | | | | | | CENTER | | | | | | LABORATORY | | | | | | [place] | | + + + + + + | BUN | 28 (H) | 8 - 25 mg/dL | [facility] | | | | | | [facility]CR[facility] | | | | | | HEART | | | | | | MEDICAL | | | | | | CENTER | | | | | | LABORATORY | | | | | | [place] | | + + + + + + | Creatinine | 1.79 (H) | 0.70 - 1.30 | [facility] | | | | | mg/dL | SACRED | | | | | | HEART | | | | | | MEDICAL | | | | | | CENTER | | | | | | LABORATORY | | | | | | [place] | | + + + + + + | Glucose | 116 (H) | 65 - 99 mg/dL | [facility] | | | | | | SACRED | | | | | | HEART | | | | | | MEDICAL | | | | | | CENTER | | | | | | LABORATORY | | | | | | [place] | | + + + + + + | Estimated | 39 (L)Comment: eGFR<60 | >=90 | [facility] | | | GFR | consistent with impaired | mL/min/1.73m2 | SACRED | | | | kidney | | HEART | | | | function.Performed by | | MEDICAL | | | | [facility] [address], | | CENTER | | | | [place] [address] | | LABORATORY | | | | | | [place] | | + + + + + + + + | Specimen | + + | Blood specimen | | (specimen) | + + + + + + + | Performing | Address | City/State/Zipcode | Phone Number | | Organization | | | | + + + + + | [facility] | [address] | [place] [address] | | | [facility] | | | | | LABORATORY [facility] | | | | + + + + + Vitamin D, Deficiency Screen (25-Hydroxy) (05/18/2018 1:54 PM PDT) + + + + + + | Component | Value | Ref Range | Performed | Pathologist | | | | | At | Signature | + + + + + + | Vitamin D, | 44.8Comment: Vitamin D | 30.0 - 100.0 | [facility] | | | 25 Hydroxy | deficiency has been | ng/mL | [facility] | | | | defined by the Ava | | HEART | | | | ofMedicine and an | | MEDICAL | | | | Endocrine Society | | CENTER | | | | practice guideline as | | LABORATORY | | | | alevel of serum 25-OH | | [place] | | | | vitamin D less than 20 | | | | | | ng/mL (1,2).The | | | | | | Endocrine Society went | | | | | | on to further define | | | | | | vitamin Dinsufficiency | | | | | | as a level between 21 | | | | | | and 29 ng/mL (2).1. IOM | | | | | | ([employer] of Medicine). | | | | | | 2009. Dietary reference | | | | | | intakes for calcium | | | | | | and DFletcher Parra [place]: | | | | | | The National | | | | | | Academies Press.2. | | | | | | Dawit MF, Isaac [place], | | | | | | Paige WHITEHEAD, et | | | | | | al. Evaluation, | | | | | | treatment, and | | | | | | prevention of vitamin D | | | | | | deficiency: an | | | | | | Endocrine Society | | | | | | clinical practice | | | | | | guideline. JCEM. 2010 | | | | | | Jalen; | | | | | | 96(7):1911-30.Performed | | | | | | At: [facility] | | | | | | [address] | | | | | | [facility] [address] [place], [place] | | | | | | [phone] Daniel | | | | | | L Ph:[phone] | | | | + + + + + + + + | Specimen | + + | Blood specimen | | (specimen) | + + + + + + + | Performing | Address | City/State/Zipcode | Phone Number | | Organization | | | | + + + + + | [facility] | [address] [place] [address]. | [place] [address] | | | [facility] | | | | | LABORATORY [facility] | | | | + + + + + Basic Metabolic Panel (05/17/2018 3:48 AM PDT) + + + + + + | Component | Value | Ref Range | Performed | Pathologist | | | | | At | Signature | + + + + + + | Na | 142 | 135 - 145 | [facility] | | | | | mmol/L | SACRED | | | | | | HEART | | | | | | MEDICAL | | | | | | CENTER | | | | | | LABORATORY | | | | | | [place] | | + + + + + + | K | 4.6 | 3.5 - 5.0 | [facility] | | | | | mmol/L | SACRED | | | | | | HEART | | | | | | MEDICAL | | | | | | CENTER | | | | | | LABORATORY | | | | | | [place] | | + + + + + + | Cl | 105 | 99 - 109 mmol/L | [facility] | | | | | | SACRED | | | | | | HEART | | | | | | MEDICAL | | | | | | CENTER | | | | | | LABORATORY | | | | | | [place] | | + + + + + + | CO2 | 27 | 21 - 28 mmol/L | [facility] | | | | | | SACRED | | | | | | HEART | | | | | | MEDICAL | | | | | | CENTER | | | | | | LABORATORY | | | | | | [place] | | + + + + + + | Anion Gap | 10 | 5 - 16 mmol/L | [facility] | | | | | | SACRED | | | | | | HEART | | | | | | MEDICAL | | | | | | CENTER | | | | | | LABORATORY | | | | | | [place] | | + + + + + + | Calcium | 8.7 | 8.5 - 10.2 | [facility] | | | | | mg/dL | SACRED | | | | | | HEART | | | | | | MEDICAL | | | | | | CENTER | | | | | | LABORATORY | | | | | | [place] | | + + + + + + | BUN | 27 (H) | 8 - 25 mg/dL | [facility] | | | | | | SACRED | | | | | | HEART | | | | | | MEDICAL | | | | | | CENTER | | | | | | LABORATORY | | | | | | [place] | | + + + + + + | Creatinine | 1.89 (H) | 0.70 - 1.30 | [facility] | | | | | mg/dL | SACRED | | | | | | HEART | | | | | | MEDICAL | | | | | | CENTER | | | | | | LABORATORY | | | | | | [place] | | + + + + + + | Glucose | 103 (H) | 65 - 99 mg/dL | [facility] | | | | | | SACRED | | | | | | HEART | | | | | | MEDICAL | | | | | | CENTER | | | | | | LABORATORY | | | | | | [place] | | + + + + + + | Estimated | 37 (L)Comment: eGFR<60 | >=90 | [facility] | | | GFR | consistent with impaired | mL/min/1.73m2 | [facility] | | | | kidney | | HEART | | | | function.Performed by | | MEDICAL | | | | [facility] [address], | | CENTER | | | | [place] [address] | | LABORATORY | | | | | | [place] | | + + + + + + + + | Specimen | + + | Blood specimen | | (specimen) | + + + + + + + | Performing | Address | City/State/Zipcode | Phone Number | | Organization | | | | + + + + + | [facility] | [address] | [place] [address] | | | [facility] | | | | | LABORATORY [place] | | | | + + + + + B Type Natriuretic Peptide (05/17/2018 3:48 AM PDT) + + + + + + | Component | Value | Ref Range | Performed | Pathologist | | | | | At | Signature | + + + + + + | BNP | 224 (H)Comment: | <=100 pg/mL | [facility] | | | | Performed by [facility] [address] | | SACRED | | | [address] [place], [place] | | HEART | | | | [address] | | MEDICAL | | | | | | CENTER | | | | | | LABORATORY | | | | | | [place] | | + + + + + + + + | Specimen | + + | Blood specimen | | (specimen) | + + + + + + + | Performing | Address | City/State/Zipcode | Phone Number | | Organization | | | | + + + + + | [facility] | [address] | [place] [address] | | | [facility] | | | | | LABORATORY [place] | | | | + + + + + Basic Metabolic Panel (05/16/2018 6:08 AM PDT) + + + + + + | Component | Value | Ref Range | Performed | Pathologist | | | | | At | Signature | + + + + + + | Na | 140 | 135 - 145 | [facility] | | | | | mmol/L | SACRED | | | | | | HEART | | | | | | MEDICAL | | | | | | CENTER | | | | | | LABORATORY | | | | | | [place] | | + + + + + + | K | 4.9 | 3.5 - 5.0 | [facility] | | | | | mmol/L | SACRED | | | | | | HEART | | | | | | MEDICAL | | | | | | CENTER | | | | | | LABORATORY | | | | | | [place] | | + + + + + + | Cl | 105 | 99 - 109 mmol/L | [facility] | | | | | | SACRED | | | | | | HEART | | | | | | MEDICAL | | | | | | CENTER | | | | | | LABORATORY | | | | | | [place] | | + + + + + + | CO2 | 26 | 21 - 28 mmol/L | [facility] | | | | | | SACRED | | | | | | HEART | | | | | | MEDICAL | | | | | | CENTER | | | | | | LABORATORY | | | | | | [place] | | + + + + + + | Anion Gap | 9 | 5 - 16 mmol/L | [facility] | | | | | | SACRED | | | | | | HEART | | | | | | MEDICAL | | | | | | CENTER | | | | | | LABORATORY | | | | | | [place] | | + + + + + + | Calcium | 8.6 | 8.5 - 10.2 | [facility] | | | | | mg/dL | SACRED | | | | | | HEART | | | | | | MEDICAL | | | | | | CENTER | | | | | | LABORATORY | | | | | | [place] | | + + + + + + | BUN | 23 | 8 - 25 mg/dL | [facility] | | | | | | SACRED | | | | | | HEART | | | | | | MEDICAL | | | | | | CENTER | | | | | | LABORATORY | | | | | | [place] | | + + + + + + | Creatinine | 1.87 (H) | 0.70 - 1.30 | [facility] | | | | | mg/dL | SACRED | | | | | | HEART | | | | | | MEDICAL | | | | | | CENTER | | | | | | LABORATORY | | | | | | [place] | | + + + + + + | Glucose | 101 (H) | 65 - 99 mg/dL | [facility] | | | | | | SACRED | | | | | | HEART | | | | | | MEDICAL | | | | | | CENTER | | | | | | LABORATORY | | | | | | [place] | | + + + + + + | Estimated | 37 (L)Comment: eGFR<60 | >=90 | [facility] | | | GFR | consistent with impaired | mL/min/1.73m2 | SACRED | | | | kidney | | HEART | | | | function.Performed by | | MEDICAL | | | | [facility] [address], | | CENTER | | | | [place] [address] | | LABORATORY | | | | | | [place] | | + + + + + + + + | Specimen | + + | Blood specimen | | (specimen) | + + + + + + + | Performing | Address | City/State/Zipcode | Phone Number | | Organization | | | | + + + + + | [facility] | [address] | [place] [address] | | | [facility] | | | | | LABORATORY [place] | | | | + + + + + CBC no Differential (05/15/2018 8:26 AM PDT) + + + +-------- -----+ + | Component | Value | Ref Range | Perform ed | Pathologist | | | | | At | Signature | + + + +-------- -----+ + | WBC | 9.6 | 3.8 - 11.0 K/uL | [facility] | | | | | | [facility] | | | | | | HEART | | | | | | MEDICAL | | | | | | CENTER | | | | | | LABORAT ORY | | | | | | [place] | | + + + +-------- -----+ + | RBC | 4.38 | 4.20 - 5.70 | [facility] | | | | | M/uL | SACRED | | | | | | HEART | | | | | | MEDICAL | | | | | | CENTER | | | | | | LABORAT ORY | | | | | | [place] | | + + + +-------- -----+ + | Hemoglobin | 13.8 | 13.2 - 17.0 | [facility] | | | | | g/dL | SACRED | | | | | | HEART | | | | | | MEDICAL | | | | | | CENTER | | | | | | LABORAT ORY | | | | | | [place] | | + + + +-------- -----+ + | Hct | 40.5 | 39.0 - 50.0 % | [facility] | | | | | | SACRED | | | | | | HEART | | | | | | MEDICAL | | | | | | CENTER | | | | | | LABORAT ORY | | | | | | [place] | | + + + +-------- -----+ + | MCV | 92.4 | 80.0 - 100.0 fL | [facility] | | | | | | SACRED | | | | | | HEART | | | | | | MEDICAL | | | | | | CENTER | | | | | | LABORAT ORY | | | | | | [place] | | + + + +-------- -----+ + | MCH | 31.4 | 27.0 - 34.0 pg | [facility] | | | | | | SACRED | | | | | | HEART | | | | | | MEDICAL | | | | | | CENTER | | | | | | LABORAT ORY | | | | | | [place] | | + + + +-------- -----+ + | MCHC | 34.0 | 32.0 - 35.5 | [facility] | | | | | g/dL | SACRED | | | | | | HEART | | | | | | MEDICAL | | | | | | CENTER | | | | | | LABORAT ORY | | | | | | [place] | | + + + +-------- -----+ + | RDW-CV | 14.2 | 11.0 - 15.5 % | [facility] | | | | | | SACRED | | | | | | HEART | | | | | | MEDICAL | | | | | | CENTER | | | | | | LABORAT ORY | | | | | | [place] | | + + + +-------- -----+ + | Platelet | 185 | 150 - 400 K/uL | [facility] | | | Count | | | SACRED | | | | | | HEART | | | | | | MEDICAL | | | | | | CENTER | | | | | | LABORAT ORY | | | | | | [place] | | + + + +-------- -----+ + | MPV | 9.1Comment: Performed | 7.5 - 11.2 fL | [facility] | | | | by [facility] [address], | | SACRED | | | | [place] [address] | | HEART | | | |Performed by [facility] [address], [place] [address] | | MEDICAL | | | | | | CENTER | | | | | | LABORAT ORY | | | | | | [place] | | + + + +-------- -----+ + + + | Specimen | + + | Blood specimen | | (specimen) | + + + + + + + | Performing | Address | City/State/Zipcode | Phone Number | | Organization | | | | + + + + + | [facility] | [address] | [place] [address] | | | [facility] | | | | | LABORATORY [place] | | | | + + + + + Basic Metabolic Panel (05/15/2018 8:26 AM PDT) + + + + + + | Component | Value | Ref Range | Performed | Pathologist | | | | | At | Signature | + + + + + + | Na | 138 | 135 - 145 | [facility] | | | | | mmol/L | SACRED | | | | | | HEART | | | | | | MEDICAL | | | | | | CENTER | | | | | | LABORATORY | | | | | | [place] | | + + + + + + | K | 4.6 | 3.5 - 5.0 | [facility] | | | | | mmol/L | SACRED | | | | | | HEART | | | | | | MEDICAL | | | | | | CENTER | | | | | | LABORATORY | | | | | | [place] | | + + + + + + | Cl | 105 | 99 - 109 mmol/L | [facility] | | | | | | SACRED | | | | | | HEART | | | | | | MEDICAL | | | | | | CENTER | | | | | | LABORATORY | | | | | | [place] | | + + + + + + | CO2 | 24 | 21 - 28 mmol/L | [facility] | | | | | | SACRED | | | | | | HEART | | | | | | MEDICAL | | | | | | CENTER | | | | | | LABORATORY | | | | | | [place] | | + + + + + + | Anion Gap | 9 | 5 - 16 mmol/L | [facility] | | | | | | SACRED | | | | | | HEART | | | | | | MEDICAL | | | | | | CENTER | | | | | | LABORATORY | | | | | | [place] | | + + + + + + | Calcium | 8.9 | 8.5 - 10.2 | [facility] | | | | | mg/dL | SACRED | | | | | | HEART | | | | | | MEDICAL | | | | | | CENTER | | | | | | LABORATORY | | | | | | [place] | | + + + + + + | BUN | 24 | 8 - 25 mg/dL | [facility] | | | | | | SACRED | | | | | | HEART | | | | | | MEDICAL | | | | | | CENTER | | | | | | LABORATORY | | | | | | [place] | | + + + + + + | Creatinine | 1.79 (H) | 0.70 - 1.30 | [facility] | | | | | mg/dL | SACRED | | | | | | HEART | | | | | | MEDICAL | | | | | | CENTER | | | | | | LABORATORY | | | | | | [place] | | + + + + + + | Glucose | 131 (H) | 65 - 99 mg/dL | [facility] | | | | | | SACRED | | | | | | HEART | | | | | | MEDICAL | | | | | | CENTER | | | | | | LABORATORY | | | | | | [place] | | + + + + + + | Estimated | 39 (L)Comment: eGFR<60 | >=90 | [facility] | | | GFR | consistent with impaired | mL/min/1.73m2 | SACRED | | | | kidney | | HEART | | | | function.Performed by | | MEDICAL | | | | [facility] [address], | | CENTER | | | | [place] [address] | | LABORATORY | | | | | | [place] | | + + + + + + + + | Specimen | + + | Blood specimen | | (specimen) | + + + + + + + | Performing | Address | City/State/Zipcode | Phone Number | | Organization | | | | + + + + + | [facility] | [address] | [place] [address] | | | [facility] | | | | | LABORATORY [facility] | | | | + + + + + POC Glucose (05/15/2018 7:25 AM PDT) + + + + + + | Component | Value | Ref Range | Performed | Pathologist | | | | | At | Signature | + + + + + + | Glucose, | 119 (H)Comment: | 65 - 99 mg/dL | [facility] | | | POC | Performed by [facility] [address] | [address] | | | | [address] [place] | | HEART | | | | [address] | | MEDICAL | | | | | | CENTER | | | | | | LABORATORY | | | | | | [facility] | | + + + + + + + + | Specimen | + + | Blood specimen | | (specimen) | + + + + + + + | Performing | Address | City/State/Zipcode | Phone Number | | Organization | | | | + + + + + | [facility] | [address] | [place] [address] | | | [facility] | | | | | LABORATORY [facility] | | | | + + + + + POC Glucose (05/14/2018 4:09 PM PDT) + + + + + + | Component | Value | Ref Range | Performed | Pathologist | | | | | At | Signature | + + + + + + | Glucose, | 151 (H)Comment: | 65 - 99 mg/dL | [facility] | | | POC | Performed by [facility] [address] | [address] | | | | [address] [place] | | HEART | | | | [id number] | | MEDICAL | | | | | | CENTER | | | | | | LABORATORY | | | | | | [facility] | | + + + + + + + + | Specimen | + + | Blood specimen | | (specimen) | + + + + + + + | Performing | Address | City/State/Zipcode | Phone Number | | Organization | | | | + + + + + | [facility] | [address] | [place] [address] | | | [facility] | | | | | LABORATORY [facility] | | | | + + + + + POC Glucose (05/14/2018 11:14 AM PDT) + + + + + + | Component | Value | Ref Range | Performed | Pathologist | | | | | At | Signature | + + + + + + | Glucose, | 125 (H)Comment: | 65 - 99 mg/dL | [facility] | | | POC | Performed by [facility] [address] | | [facility] | | | [address] [place] | | HEART | | | | [address] | | MEDICAL | | | | | | CENTER | | | | | | LABORATORY | | | | | | CERNER | | + + + + + + + + | Specimen | + + | Blood specimen | | (specimen) | + + + + + + + | Performing | Address | City/State/Zipcode | Phone Number | | Organization | | | | + + + + + | [facility] | [address] | [place] [address] | | | [facility] | | | | | LABORATORY [facility] | | | | + + + + + Comprehensive Metabolic Panel (05/14/2018 9:27 AM PDT) + + + + + + | Component | Value | Ref Range | Performed | Pathologist | | | | | At | Signature | + + + + + + | Na | 142 | 135 - 145 | [facility] | | | | | mmol/L | [facility] | | | | | [facility] | | | | | | MEDICAL | | | | | | CENTER | | | | | | LABORATORY | | | | | | [facility] | | + + + + + + | K | 4.6 | 3.5 - 5.0 | [facility] | | | | | mmol/L | [facility] | | | | | | [facility] | | | | | | MEDICAL | | | | | | CENTER | | | | | | LABORATORY | | | | | | [facility] | | + + + + + + | Cl | 106 | 99 - 109 mmol/L | [facility] | | | | | | [facility] | | | | | | [facility] | | | | | | MEDICAL | | | | | | CENTER | | | | | | LABORATORY | | | | | | [facility] | | + + + + + + | CO2 | 26 | 21 - 28 mmol/L | [facility] | | | | | | [facility] | | | | | | [facility] | | | | | | MEDICAL | | | | | | CENTER | | | | | | LABORATORY | | | | | | [facility] | | + + + + + + | Calcium | 9.1 | 8.5 - 10.2 | [facility] | | | | | mg/dL | [facility] | | | | | | HE[facility] | | | | | | MEDICAL | | | | | | CENTER | | | | | | LABORATORY | | | | | | [facility] | | + + + + + + | Anion Gap | 10 | 5 - 16 mmol/L | [facility] | | | | | | [facility] | | | | | | [facility] | | | | | | MEDICAL | | | | | | CENTER | | | | | | LABORATORY | | | | | | [facility] | | + + + + + + | Albumin | 4.4 | 3.3 - 4.8 g/dL | [facility] | | | | | | [facility] | | | | | [facility] | | | | | | MEDICAL | | | | | | CENTER | | | | | | LABORATORY | | | | | | [facility] | | + + + + + + | BUN | 25 | 8 - 25 mg/dL | [facility] | | | | | | [facility] | | | | | | [facility] | | | | | | MEDICAL | | | | | | CENTER | | | | | | LABORATORY | | | | | | [facility] | | + + + + + + | Creatinine | 1.84 (H) | 0.70 - 1.30 | [facility] | | | | | mg/dL | [facility] | | | | | | [facility] | | | | | | MEDICAL | | | | | | CENTER | | | | | | LABORATORY | | | | | | [facility] | | + + + + + + | Glucose | 119 (H) | 65 - 99 mg/dL | [facility] | | | | | | [facility] | | | | | | [facility] | | | | | | MEDICAL | | | | | | CENTER | | | | | | LABORATORY | | | | | | [facility] | | + + + + + + | Total | 7.2 | 6.1 - 7.8 g/dL | [facility] | | | Protein | | | [facility] | | | | | | HE[facility] | | | | | | MEDICAL | | | | | | CENTER | | | | | | LABORATORY | | | | | | [facility] | | + + + + + + | Alkaline | 78 | 35 - 115 U/L | [facility] | | | Phosphatase | | | [facility] | | | | | | HEART | | | | | | MEDICAL | | | | | | CENTER | | | | | | LABORATORY | | | | | | [facility] | | + + + + + + | ALT | 57 | 10 - 65 U/L | [facility] | | | | | | [facility] | | | | | | HE[facility] | | | | | | MEDICAL | | | | | | CENTER | | | | | | LABORATORY | | | | | | [facility] | | + + + + + + | AST | 29 | 10 - 45 U/L | [facility] | | | | | | [facility] | | | | | | HE[facility] | | | | | | MEDICAL | | | | | | CENTER | | | | | | LABORATORY | | | | | | [facility] | | + + + + + + | Bilirubin | 0.5 | 0.2 - 1.1 mg/dL | [facility] | | | Total | | | [facility] | | | | | | HEART | | | | | | MEDICAL | | | | | | CENTER | | | | | | LABORATORY | | | | | | [facility] | | + + + + + + | Estimated | 38 (L)Comment: eGFR<60 | >=90 | [facility] | | | GFR | consistent with impaired | mL/min/1.73m2 | [facility] | | | | kidney | | HEART | | | | function.Performed by | | MEDICAL | | | | [facility] [address] | | CENTER | | | | [place] [address] | | LABORATORY | | | | | | CERNER | | + + + + + + + + | Specimen | + + | Blood specimen | | (specimen) | + + + + + + + | Performing | Address | City/State/Zipcode | Phone Number | | Organization | | | | + + + + + | [facility] | [address] | [place] [address] | | | [facility] | | | | | LABORATORY [facility] | | | | + + + + + LABS - EXTERNAL SCAN (05/13/2018 12:00 AM PDT) + + + | Narrative | Performed At | + + + | Ordered by an | | | unspecified provider. 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 EULOGIO Darby | + + | Family history of sudden Family history of other condition | + + | 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 | | (HCC) | + + | Benign essential hypertension Essential hypertension, benign | + + | Congestive heart failure, unspecified HF chronicity, unspecified heart failure type | | (HCC) | + + | COPD (chronic obstructive pulmonary disease) (HCC) Chronic airway obstruction, not | | elsewhere classified | + + | Acute on chronic systolic congestive heart failure (HCC) Acute on chronic systolic | | heart failure | + + | Mixed hyperlipidemia | + + documented in this encounter Administered Medications + +--------+ +-------+------+------+ | Medication Order | MAR | Action | Dose | Rate | Site | | | Action | Date | | | | + +--------+ +-------+------+------+ | aspirin EC tablet 81 mg 81 mg, | Given | 05/21/20 | 81 mg | | | | Oral, DAILY, First dose on Radha | | 18 9:14 | | | | | 05/13/18 at 2030 | | AM PDT | | | | + +--------+ +-------+------+------+ +-------+ +-------+---+---+ | Given | 05/20/20 | 81 mg | | | | | 18 9:33 | | | | | | AM PDT | | | | +-------+ +-------+---+---+ | Given | 05/19/20 | 81 mg | | | | | 18 8:31 | | | | | | AM PDT | | | | +-------+ +-------+---+---+ +---+---+ | | | +---+---+ + +-------+ +-------+---+---+ | atorvaSTATin (LIPITOR) tablet | Given | 05/20/20 | 80 mg | | | | 80 mg 80 mg, Oral, NIGHTLY, | | 18 10:37 | | | | | First dose on Radha 05/13/18 at 2100 | | PM PDT | | | | + +-------+ +-------+---+---+ +-------+ +-------+---+---+ | Given | 05/19/20 | 80 mg | | | | | 18 8:28 | | | | | | PM PDT | | | | +-------+ +-------+---+---+ | Given | 05/18/20 | 80 mg | | | | | 18 8:40 | | | | | | PM PDT | | | | +-------+ +-------+---+---+ +---+---+ | | | +---+---+ + +-------+ +--------+---+---+ | cholecalciferol (VITAMIN D-3) | Given | 05/21/20 | 1,000 | | | | tablet 1,000 Units 1,000 Units, | | 18 9:13 | Units | | | | Oral, DAILY, First dose on Radha | | AM PDT | | | | | 05/13/18 at 2030 | | | | | | + +-------+ +--------+---+---+ +-------+ +--------+---+---+ | Given | 05/20/20 | 1,000 | | | | | 18 9:34 | Units | | | | | AM PDT | | | | +-------+ +--------+---+---+ | Given | 05/18/20 | 1,000 | | | | | 18 9:31 | Units | | | | | AM PDT | | | | +-------+ +--------+---+---+ +---+---+ | | | +---+---+ + +-------+ +-------+---+---+ | clopidogrel (PLAVIX) tablet 75 | Given | 05/21/20 | 75 mg | | | | mg 75 mg, Oral, DAILY, First | | 18 9:13 | | | | | dose on Radha 05/13/18 at 2030 | | AM PDT | | | | + +-------+ +-------+---+---+ +-------+ +-------+---+---+ | Given | 05/20/20 | 75 mg | | | | | 18 9:33 | | | | | | AM PDT | | | | +-------+ +-------+---+---+ | Given | 05/19/20 | 75 mg | | | | | 18 8:31 | | | | | | AM PDT | | | | +-------+ +-------+---+---+ +---+---+ | | | +---+---+ + +-------+ +-------+---+---+ | famotidine (PEPCID) tablet 40 | Given | 05/18/20 | 40 mg | | | | mg 40 mg, Oral, DAILY, First | | 18 9:32 | | | | | dose on [facility] 05/13/18 at 2030 | | AM PDT | | | | + +-------+ +-------+---+---+ +-------+ +-------+---+---+ | Given | 05/17/20 | 40 mg | | | | | 18 8:18 | | | | | | AM PDT | | | | +-------+ +-------+---+---+ | Given | 05/16/20 | 40 mg | | | | | 18 9:35 | | | | | | AM PDT | | | | +-------+ +-------+---+---+ +---+---+ | | | +---+---+ + +-------+ +-------+---+---+ | furosemide (LASIX) tablet 20 mg | Given | 05/16/20 | 20 mg | | | | 20 mg, Oral, DAILY, First dose | | 18 9:33 | | | | | on Radha 05/13/18 at 2030 | | AM PDT | | | | + +-------+ +-------+---+---+ +-------+ +-------+---+---+ | Given | 05/15/20 | 20 mg | | | | | 18 9:11 | | | | | | AM PDT | | | | +-------+ +-------+---+---+ | Given | 05/14/20 | 20 mg | | | | | 18 10:16 | | | | | | AM PDT | | | | +-------+ +-------+---+---+ +---+---+ | | | +---+---+ + +-------+ +-------+---+---+ | furosemide (LASIX) tablet 20 mg | Given | 05/16/20 | 20 mg | | | | 20 mg, Oral, ONCE, 05/16/18 | | 18 9:40 | | | | | at 0930, For 1 dose, Give with | | AM PDT | | | | | scheduled am dose of furosemide, | | | | | | + +-------+ +-------+---+---+ +---+---+ | | | +---+---+ + +-------+ +-------+---+---+ | furosemide (LASIX) tablet 40 mg | Given | 05/18/20 | 40 mg | | | | 40 mg, Oral, DAILY, First dose | | 18 9:31 | | | | | (after last modification) on Mon | | AM PDT | | | | | 05/17/18 at 0900 | | | | | | + +-------+ +-------+---+---+ +-------+ +-------+---+---+ | Given | 05/17/20 | 40 mg | | | | | 18 8:19 | | | | | | AM PDT | | | | +-------+ +-------+---+---+ +---+---+ | | | +---+---+ + +-------+ +--------+---+---+ | gabapentin (NEURONTIN) capsule | Given | 05/21/20 | 300 mg | | | | 300 mg 300 mg, Oral, 3 TIMES | | 18 9:13 | | | | | DAILY, First dose on [facility] 05/13/18 | | AM PDT | | | | | at 2100 | | | | | | + +-------+ +--------+---+---+ +-------+ +--------+---+---+ | Given | 05/20/20 | 300 mg | | | | | 18 10:39 | | | | | | PM PDT | | | | +-------+ +--------+---+---+ | Given | 05/20/20 | 300 mg | | | | | 18 2:38 | | | | | | PM PDT | | | | +-------+ +--------+---+---+ +---+---+ | | | +---+---+ + +-------+ +--------+---+ + | heparin 5,000 units/mL | Given | 05/21/20 | 5,000 | | Abdomen- | | injection 5,000 Units 5,000 | | 18 9:13 | Units | | RLQ | | Units, Subcutaneous, EVERY 12 | | AM PDT | | | | | HOURS (2 times per day), First | | | | | | | dose on [facility] 05/13/18 at 2115 | | | | | | + +-------+ +--------+---+ + +-------+ +--------+---+ + | Given | 05/20/20 | 5,000 | | Abdomen- | | | 18 10:40 | Units | | RLQ | | | PM PDT | | | | +-------+ +--------+---+ + | Given | 05/20/20 | 5,000 | | Abdomen- | | | 18 9:34 | Units | | RUQ | | | AM PDT | | | | +-------+ +--------+---+ + +---+---+ | | | +---+---+ + +-------+ +---------+---+---+ | HYDROcodone-acetaminophen | Given | 05/21/20 | 2 | | | | (NORCO) 5-325 mg per tablet 2 | | 18 10:22 | tablets | | | | tablet 2 tablet, Oral, EVERY 4 | | AM PDT | | | | | HOURS PRN, Pain, Pain, Starting | | | | | | | Radha 05/13/18 at 2005 | | | | | | + +-------+ +---------+---+---+ +-------+ +---------+---+---+ | Given | 05/21/20 | 2 | | | | | 18 6:27 | tablets | | | | | AM PDT | | | | +-------+ +---------+---+---+ | Given | 05/21/20 | 2 | | | | | 18 2:27 | tablets | | | | | AM PDT | | | | +-------+ +---------+---+---+ + +---+ | | | + +---+ | HYDROcodone-acetaminophen | | | (NORCO) 5-325 mg per tablet | | | Starting 05/19/18 at 1806, For | | | 1 dose, Mica Perez : | | | isiah telles, | | + +---+ | | | + +---+ + +-------+ +------+---+---+ | melatonin tablet 5 mg 5 mg, | Given | 05/19/20 | 5 mg | | | | Oral, NIGHTLY PRN, Insomnia, | | 18 9:52 | | | | | Starting Radha 05/13/18 at 2106 | | PM PDT | | | | + +-------+ +------+---+---+ +-------+ +------+---+---+ | Given | 05/17/20 | 5 mg | | | | | 18 8:48 | | | | | | PM PDT | | | | +-------+ +------+---+---+ | Given | 05/15/20 | 5 mg | | | | | 18 8:53 | | | | | | PM PDT | | | | +-------+ +------+---+---+ +---+---+ | | | +---+---+ + +-------+ +--------+---+---+ | metFORMIN (GLUCOPHAGE) tablet | Given | 05/18/20 | 500 mg | | | | 500 mg 500 mg, Oral, 2 TIMES | | 18 9:31 | | | | | DAILY WITH BREAKFAST & DINNER, | | AM PDT | | | | | First dose on Radha 05/13/18 at 2030, | | | | | | | Follow hospital guidelines to | | | | | | | determine if metFORMIN should be | | | | | | | held following procedures using | | | | | | | IV iodinated contrast., | | | | | | + +-------+ +--------+---+---+ +-------+ +--------+---+---+ | Given | 05/17/20 | 500 mg | | | | | 18 5:16 | | | | | | PM PDT | | | | +-------+ +--------+---+---+ | Given | 05/17/20 | 500 mg | | | | | 18 8:18 | | | | | | AM PDT | | | | +-------+ +--------+---+---+ +---+---+ | | | +---+---+ + +-------+ +-------+---+---+ | metoprolol succinate | Given | 05/14/20 | 25 mg | | | | (TOPROL-XL) ER tablet 25 mg 25 | | 18 10:15 | | | | | mg, Oral, DAILY, First dose on | | AM PDT | | | | | Rad[facility] 05/13/18 at 2030, Tablet may be | | | | | | | cut where scored but do not | | | | | | | crush., | | | | | | + +-------+ +-------+---+---+ +---+---+ | | | +---+---+ + +-------+ +-------+---+---+ | metoprolol succinate | Given | 05/20/20 | 25 mg | | | | (TOPROL-XL) ER tablet 25 mg 25 | | 18 10:38 | | | | | mg, Oral, 2 TIMES DAILY, First | | PM PDT | | | | | dose (after last modification) on | | | | | | | 05/14/18 at 2130, Tablet may | | | | | | | be cut where scored but do not | | | | | | | crush. Hold for SBP <90, | | | | | | + +-------+ +-------+---+---+ +-------+ +-------+---+---+ | Given | 05/20/20 | 25 mg | | | | | 18 9:39 | | | | | | AM PDT | | | | +-------+ +-------+---+---+ | Given | 05/19/20 | 25 mg | | | | | 18 8:28 | | | | | | PM PDT | | | | +-------+ +-------+---+---+ +---+---+ | | | +---+---+ + +-------+ +-------+---+---+ | metoprolol succinate | Given | 05/21/20 | 50 mg | | | | (TOPROL-XL) ER tablet 50 mg 50 | | 18 9:14 | | | | | mg, Oral, 2 TIMES DAILY, First | | AM PDT | | | | | dose on Thu05/21/18 at 0900, | | | | | | | Tablet may be cut where scored | | | | | | | but do not crush., | | | | | | + +-------+ +-------+---+---+ +---+---+ | | | +---+---+ + +-------+ +-------+---+---+ | pantoprazole (PROTONIX) DR | Given | 05/21/20 | 40 mg | | | | tablet 40 mg 40 mg, Oral, DAILY | | 18 5:50 | | | | | BEFORE BREAKFAST, First dose on | | AM PDT | | | | | [facility] 05/14/18 at 0730, Do not cut or | | | | | | | crush., Indication: Dual | | | | | | | anti-platelet therapy | | | | | | + +-------+ +-------+---+---+ +-------+ +-------+---+---+ | Given | 05/20/20 | 40 mg | | | | | 18 6:01 | | | | | | AM PDT | | | | +-------+ +-------+---+---+ | Given | 05/19/20 | 40 mg | | | | | 18 6:42 | | | | | | AM PDT | | | | +-------+ +-------+---+---+ +---+---+ | | | +---+---+ + +-------+ + +---+---+ | sacubitril-valsartan (ENTRESTO) | Given | 05/21/20 | 1 tablet | | | | 49-51 mg per tablet 1 tablet 1 | | 18 9:13 | | | | | tablet, Oral, 2 TIMES DAILY, | | AM PDT | | | | | First dose on [facility] 05/13/18 at 2100, | | | | | | | Hold for SBP <90, | | | | | | + +-------+ + +---+---+ +-------+ + +---+---+ | Given | 05/20/20 | 1 tablet | | | | | 18 10:38 | | | | | | PM PDT | | | | +-------+ + +---+---+ | Given | 05/20/20 | 1 tablet | | | | | 18 9:39 | | | | | | AM PDT | | | | +-------+ + +---+---+ +---+---+ | | | +---+---+ + +---------+ +--------+ +---+ | sodium chloride 0.45% (1/2 NS) | New Bag | 05/18/20 | 1,000 | 50 mL/hr | | | infusion at 50 mL/hr, | | 18 9:57 | mLs | | | | Intravenous, CONTINUOUS, Starting | | PM PDT | | | | | 05/18/18 at 2200 | | | | | | + +---------+ +--------+ +---+ +---+---+ | | | +---+---+ + +-------+ +---------+---+---+ | spironolactone (ALDACTONE) | Given | 05/21/20 | 12.5 mg | | | | tablet 12.5 mg 12.5 mg, Oral, | | 18 9:13 | | | | | DAILY, First dose on Thu05/17/18 | | AM PDT | | | | | at 0900, Hazardous: Use | | | | | | | appropriate handling | | | | | | | precautions., | | | | | | + +-------+ +---------+---+---+ +-------+ +---------+---+---+ | Given | 05/20/20 | 12.5 mg | | | | | 18 9:33 | | | | | | AM PDT | | | | +-------+ +---------+---+---+ | Given | 05/18/20 | 12.5 mg | | | | | 18 9:30 | | | | | | AM PDT | | | | +-------+ +---------+---+---+ +---+---+ | | | +---+---+ documented in this encounter
--- OUTSIDE RECORDS SUMMARY | ~2020-03-04 | XMS | Clinical Summary ---
Demographics + + + | Address | [address] [place] [address] [address] | | | [place] [address] | + + + | Home Phone [...] | | | | | [place] [address] | | + + + + + Care Team Providers + +------+ + | Care Professional Sports Scout Name | Role | Phone | + +------+ + | Chato Matson MD | PCP | | + +------+ + Source Comments EULOGIO is fully live on both [facility] Ambulatory and [facility] InPatient.[facility] Allergies No Known Allergies Medications + + [...] resynchronization therapy | 10/17/2017 | | defibrillator (STATE COMPTROLLER-D) | | + + + | Influenza, [...] edema. 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 | | -secretions improving, cough strong [...] stayExtubated 03/22, started on | | NC Q1Sdxpt infusion begun 03/22 for daily goal -1 [...] during cath | | lab procedure at [facility]. Was shocked 17 times | | [...] | | | HANDY | | | [id number] | | Tejal Pettit MD | | | | | | X / | | | | | | | | /[id number] | | | | | | | | [address] | + +------+--------+ +--------+--------+--------+ + + | [...] CROSS | | 16-Pre | 8 | [address] | | | | [place] | | sent | | [place], | | | | [place] | | | | [place] [address] | | + +--------+ +--------+ + +--------+ | MEDICAID [place] | OHP | [id number] | 03/07/20 | [phone] | [address] | Medica | | | PLUS | | 17-Pre | 6 | [address] | id | | | OPEN | | sent | | [place], [place] | | | | CARD | | | | [phone] | | + +--------+ +--------+ + +--------+ + +--------+ +--------+ + + | Guarantor Name | Accoun | Relation to | Date | Phone | Billing Address | | | t Type | Patient | of | | | | | | | | | | + +--------+ +--------+ + + | Bob Will | Person | Self | [birth year] | [address] | | | al/Negro | | 1956 | [phone] | [address] [place] | | | [place] | | | [address] (Home) | [address] | + +--------+ +--------+ + + Advance [...]
--- OUTSIDE RECORDS SUMMARY | ~2020-03-04 | XMS | Encounter Summary ---
Demographics + + + | Address | [address] | | | [place] [address] | + + + | Home Phone [...] [place], [place] | | | | | [address] | | + + + + + Care Team Providers + +------+ + | Care Sales Forecast Analyst Name | Role | Phone | [...] [address] | | | | [place], | [place], | | | | | [place] [address] | [place] [address] | | | | | [phone] | [phone] | | | | | | | [...] [place] | | | | | | [address] | | | | | | | | +--------+ + + + + | 04/16/ | Office | Cardiology | Alin Anderson | | | 2019 | Visit | | MD Cheryl Arreguin | | | | | | [address] | | | | | | [place] [address] | | | | | | [phone] | | | | | | | [...] [place] | | | | | | [address] | | | | | | | [...]
--- OUTSIDE RECORDS SUMMARY | ~2020-03-04 | XMS | Encounter Summary ---
Demographics + + + | Address | [address] | | | [place] [address] | + + + | Home Phone [...] [place] | | | | | [address] | | + + + + + Care Team Providers + +------+ + | Care Coronary Clinical Specialist Name | Role | Phone | [...] | | | heart | [place], | [place] | | | | | failure | [place] [address] | [place] | | | | | (HCC) | Phone: | [address] | | | | | I50.22 | [phone] | Phone: | | | | | Procedures | Fax: | [phone] | | | | | Cardiac | [phone] | Fax: | | | | | Rehab | | [phone] | +--------+--------+ + + + + Encounter Details +--------+---------+ + + + | Date | Type | Department | Care Team | Description | +--------+---------+ + + + | 07/28/ | Office | [facility] | Amy Olivares V, | Chronic systolic CHF | | 2019 | Visit | [facility] | [address] | (congestive heart | | | | REHABILITATION [address] [place], [place] | failure) ([facility]) | | | | [address] | [phone] | (Primary Dx) | | | | [place] [address] | | | | | | [phone] | | | +--------+---------+ + + + [...] of this encounter Progress Notes Kathy Garcia, BETTING CLERKS - 07/28/2019 12:00 PM PSTFormatting of this note might be different f rom the original. [facility] [address] [place] [address] Cardiac Rehab Date: 07/28/2019 Patient Information Patient Name: Bob Will Date of : 1955 Age: 63 y.o. Encounter Diagnoses Code Name Primary? I50.22 Chronic systolic CHF (congestive heart failure) (HCC) Yes Number of Visits Approved: 34 kx Taken Medications Today? Yes Any Changes in Medications? Yes, changed to no longer taking Metoprolol and changed doses o n amiodarone. Any Problems to Report? No complaints with exertion. Ventricular paced rhythm without ectopy. Pre O2: 98%, Durin%, SBP prior to exercise 94 /58; during exercise 100/68. Post: 136/52 Compliant with medications and therapeutic lifestyle changes. Continue monitored exercise.. Any abnormal vital signs or rhythm strips will be reported in progress note. Electronically signed by: Kathy Garcia RRT, 07/28/2019 2:38 PM Patient Name: Bob Will/: 1955/ ly signed by Kathy Garcia RRT at 07/28/2019 2:41 PM PSTdocumented in this encounter Plan of Treatment +--------+ + + + + | Date | Type | Specialty | Care Team | Description | +--------+ + + + + | 03/12/ | Office | Nephrology | Lit[place], | | | 2019 | Visit | | [facility] [address] | | | | | | [facility] | | | | | | [address] [place] | | | | | | [id number] | | | | | | | | +--------+ + + + + | 04/16/ | Office | Cardiology | Alin Anderson | | | 2019 | Visit | | MD Cheryl Arreguin | | | | | | [address] | | | | | | [place] [address] | | | | | | [phone] | | | | | | | [...] [place] | | | | | | [address] | | | | | | | | +--------+ + + + + documented as of this encounter Visit Diagnoses + + | Diagnosis | + + | Chronic systolic CHF (congestive heart failure) (HCC) - Primary | + + documented in this encounter"
--- OUTSIDE RECORDS SUMMARY | ~2020-03-04 | XMS | Encounter Summary ---
Demographics + + + | Address | [address] | | | [place] [address] | + + + | Home Phone [...] [place], [place] | | | | | [address] | | + + + + + Care Team Providers + +------+ + | Care Rn House Supervisor Name | Role | Phone | [...] [facility] | | | | | Coronary | MD Lauren | [address] | | | | | artery | [address] | [place], | | | | | disease, | [address] | [place] | | | | | angina | [place], | [address] | | | | | presence | [place] [address] | Phone: | | | | | unspecified, | Phone: | [phone] | | | | | unspecified | [phone] | Fax: | | | | | vessel or | Fax: | [phone] | | | | | lesion type, | [phone] | | | | | | unspecified | | | | | | | whether | | | | | | | [place] or | | | | | | | transplanted | | | | | | | heart | | | | | | | Procedures | | | | | | | ECHO | | | | | | | Complete [place] | | | | | | | ECHO HEART | | | | | | | XTHORACIC,[place] | | | | | | | MPLETE W | | | | | | | DOPPLER [place] | | | | | | | ECHO HEART | | | | | | | XTHORACIC,CO | | | | | | | MPLETE, W/O | | | | | | | DOPPLER | | | +--------+--------+ + + + + Reason for Visit + + + | Reason | Comments | + + + | Coronary Artery | | | Disease | | + + + | New Patient | | + + + Evaluate & Treat (Routine) +--------+--------+ + + + + | Status | Reason | Specialty | Diagnoses / | Referred By | Referred To | | | | | Procedures | Contact | Contact | +--------+--------+ + + + + | Closed | | Cardiology | Diagnoses | [facility] | [facility] | Marianne Lui MD | Cardiology | | | | | discharge | [address] | [address] | | | | | follow-up | CHARLA ALICEA | Javier Herrera, | | | | | Acute | [place], [place] | [place] | | | | | anterior | [address] | [address] | | | | | wall ID | Phone: | Phone: | | | | | ([facility]) | [phone] | [phone] | | | | | | Fax: | Fax: | | | | | | [phone] | [phone] | +--------+--------+ + + + + Encounter Details +--------+---------+ + + + | Date | Type | Department | Care Team | Description | +--------+---------+ + + + | 05/04/ | Office | [facility] | Lauren Figueroa, | Coronary artery | | 2017 | Visit | CARDIOLOGY [address] | [address] [facility] | disease, angina | | | | [place], | [place], | presence | | | | [place] [address] | [place] [address] | unspecified, | | | | [phone] | [phone] | unspecified vessel | | | | | | or lesion type, | | | | | | unspecified whether | | | | | | [place] or | | | | | | [...] + + + | Blood Pressure | 108/64 | 05/04/2017 3:26 PM | left | | | | PDT | | + + + + + | Pulse | 81 | 05/04/2017 3:25 PM | | | | | PDT | | + + + + + | Temperature | - | - | | + + + + + | Respiratory Rate | 16 | 05/04/2017 3:25 PM | | | | | PDT | | + + + + + | Oxygen Saturation | - | - | | + + + + + | Inhaled Oxygen | - | - | | | Concentration | | | | + + + + + | Weight | 84.8 kg (187 lb) | 05/04/2017 3:25 PM | | | | | PDT | | + + + + + | Height | 177.8 cm (5' 10") | 05/04/2017 3:25 PM | | | | | PDT | | + + + + + | Body Mass Index | 26.83 | 05/04/2017 3:25 PM | | | | | PDT | | + + + + + documented in this encounter Patient Instructions Patient Instructions Lilian Machado RN - 05/04/2017 3:30 PM PDT1. Restart Plavix (Clopi dogrel) 75 mg tablets - take 4 tablets (300mg) today only, then take 75mg (1 tablet) daily t hereafter. 2. Stop Imdur (Isosorbide) 3. Increase Lisinopril to 10mg one time daily 4. Check blood pressure and pulse twice daily, bring log with you to your next appointment 5. Blood test: Non-fasting Date Due: 1 week Where to go for labs: Lab of your choice, please see lab orders, take them with you to the lab. 6. Echo: Date: Check-In Time: Where to Check In: 7. Follow up appointment: 2-3 weeks Provider: ADARSH Stevens Date: Check-In Time: documented in this encounter Progress Notes Lauren Figueroa MD - 05/04/2017 3:30 PM PDTFormatting of this note might be different f rom the original. PATIENT NAME: Ron Will : 1955: AGE: 61 y.o. REFERRED BY: Marianne Foster PRIMARY CARE: DO JEFF Mckinney PATIENT OFFICE VISIT Date of Service: 05/04/17 HISTORY OF PRESENT ILLNESS: Ron Will is a 61 y.o. male with a history of coronary artery disease post recent anterior wall ID, post PTCA and stents of the left main, LAD and LCx on 03/15/17, cardiac shoc k, left atrial appendage thrombus. He is being seen today for CAD. Patient was in his usual state of health until 03/15/17 when he presented to [facility] in [place] with acute anterior wall ID. He underwent emergent stenting of the distal left main, LAD and LCx by which was complicated with dissection/thrombosis of left main, causing cardiogenic shock requiring IABP, pressor (dopamine, norepinephrine). [facility] and [facility] were on divert. Patient wasn't transferred to [facility], [place] [facility] [facility]. At [facility], patient had another STEMI code 03/29, with anterior involvement on EKG with inferio r reciprocal depressions--and patient started on heparin drip with full dose aspirin, then s /p repeat angiography without acute finding: "patent stent traversing the LM to LAD and kuhn nt stent in the proximal LCX,discrete thrombi seen in any vessel...overall improved flow c ompared to 03/15 acute angiogram." TTE 03/30 with previously seen wall motion abnormalities and improved systolic function. Patient was started on ASA 81mg daily, clopidogrel 75mg po bebo y, atorvastatin 40mg po daily, and metoprolol succinate 25mg daily--which he will continue o n discharge. Low-dose lisinopril and ISMN were added as well. Cardiology has arranged for hi m to follow up closely with a local maintenance coordinator in [place]. He wias dischargeed with a LifeVest for VT/VF protection in the short term as he recovers (too soon for ICD considerati on). Today, patient is feeling good. He denies any cardiac symptoms. He was told to stop taking Plavix and warfarin by PCP for unclear reason. Patient is physically active. There is no shae st pain or chest discomfort both at rest and on exertion. Patient denies breathlessness. T here is no palpitation dizziness or lightheadedness. There is no ankle or leg swelling. Pat ient can sleep on one pillow at night without difficulty breathing. CURRENT PROBLEMS Patient Active Problem List Diagnosis Acute anterior wall ID CAD (coronary artery disease) MEDICAL, SURGICAL, AND PERSONAL HISTORY Past Surgical History: Procedure Laterality Date CARDIAC CATHERIZATION N/A 03/15/2017 Procedure: CV Cor Angio; Surgeon: Monse Ross MD; Location: [facility] CV LAB ELBOW SURGERY Left GALLBLADDER SURGERY NASAL SEPTUM SURGERY History reviewed. No pertinent family history. No family status information on file. Social History Social History Marital status: Unknown Spouse name: N/A Number of children: N/A Years of education: N/A Social History Main Topics Smoking status: Never Smoker Smokeless tobacco: Never Used Alcohol use No Drug use: Unknown Sexual activity: Not Asked Other Topics Concern None Social History Narrative None CURRENT MEDICATIONS Current Outpatient Prescriptions Medication Sig Dispense Refill acetaminophen (TYLENOL) 500 mg tablet Take 500 mg by mouth as needed. aspirin 81 MG tablet Take by mouth Daily. atorvaSTATin (LIPITOR) 40 mg tablet Take by mouth Daily. cholecalciferol (CHOLECALCIFEROL) 1000 units TABS Take by mouth 2 times daily. clopidogrel (PLAVIX) 75 mg tablet Take by mouth. isosorbide mononitrate (IMDUR) 30 mg ER tablet Take by mouth Daily. lisinopril (PRINIVIL, ZESTRIL) 5 mg tablet Take by mouth Daily. melatonin 3 mg TABS Take by mouth nightly as needed. metFORMIN (GLUCOPHAGE) 500 mg tablet Take by mouth 2 times daily. metoprolol succinate (TOPROL-XL) 25 mg 24 hr tablet Take by mouth Daily. oxyCODONE (ROXICODONE) 5 mg tablet Take by mouth as needed. raNITIdine (ZANTAC) 300 MG tablet Take by mouth nightly. warfarin (COUMADIN) 5 mg tablet Take 10 mg by mouth on 04/02/2017, then take 7.5 mg (one and one-half tablets) daily starting 04/03/2017 Indications: JAVON thrombus No current facility-administered medications for this visit. ALLERGIES No Known Allergies ROS Review of Systems Constitutional: Negative for chills, diaphoresis, fever, malaise/fatigue and weight loss. HENT: Negative for congestion, hearing loss, nosebleeds and tinnitus. Dental Problems = No Eyes: Negative for blurred vision and double vision. Respiratory: Negative for shortness of breath. Cardiovascular: Positive for leg swelling. Negative for chest pain and palpitations. Gastrointestinal: Negative for blood in stool, constipation, diarrhea, nausea and vomiting. Genitourinary: Negative for dysuria, frequency, hematuria and urgency. Musculoskeletal: Negative for back pain, falls, joint pain, myalgias and neck pain. Gait Problems = No Skin: Negative for itching and rash. Neurological: Negative for dizziness, tingling, tremors, speech change, seizures, loss of c onsciousness and weakness. Lightheaded = No Endo/Heme/Allergies: Bruises/bleeds easily. Psychiatric/Behavioral: Negative for memory loss. The patient is not nervous/anxious and do es not have insomnia. OBJECTIVE: PHYSICAL EXAM BP 108/64 Comment: left | Pulse 81 | Resp 16 | Ht 1.778 m (5' 10") | Wt 84.8 kg (187 lb) | BMI 26.83 kg/m Physical Exam Constitutional: He is oriented [...] Normal rate, regular rhythm, S1 normal, S2 normal and normal pulses. PMI i s not displaced. Exam reveals no gallop, no S3 and no S4. No murmur heard. Pulses: Carotid pulses are [...] no rales. Abdominal: Soft. Normal appearance and bowel sounds are normal. He exhibits no abdominal br uit. There is no hepatosplenomegaly. There is no [...] not exh ibit a depressed mood. ECG: Sinus rhythm, anteroseptal ID, age undetermined. LAB RESULTS: LIPID No results found for: CHOL, TRIG, [...] PLTEX 194 03/15/2017 I reviewed records from Monse Ross MD for hospitalization,including H&P, Discharge Summa ry and lab reports on 03/15/2017. Refer to maintenance coordinator. ASSESSMENT: 1. Coronary artery disease presented with acute anterior wall STEMI and cardiogenic shock and ischemic cardiomyopathy A. Angiography and stent 03/15/2017 shows successful PCI with placement of 3.0X23 stent in t he distal LM and ostial LAD reducing a 100% stenotic lesion to 0% residual stenosis, success ful PCI with placement of 2.5X18 stent in the ostial LCx reducing a 90% stenotic lesion to 0 % resdual stenosis. Monse Ross MD. Patient was was complicated with dissection/thrombosi s of left main, causing cardiogenic shock requiring IABP, pressor (dopamine, norepinephrine) . [facility] and [facility] were on divert. Patient wasn't transferred to [facility], [facility]. B. Echocardiogram 03/17/2017 shows LV ejection fraction is severely decreased, visually est imated left ventricular ejection fraction is 20 - 25%, left ventricular systolic thickening is segmentally abnormal, mildly reduced RV systolic function. Normal RV size, no significant valvular abnormalities seen, compared to the most recent exam dated, 03/15/2017, there is n o significant changes C. At [facility], patient had another STEMI code 03/29, with anterior involvement on EKG with in ferior reciprocal depressions--and patient started on heparin drip with full dose aspirin, t hen s/p repeat angiography without acute finding: "patent stent traversing the LM to LAD and patent stent in the proximal LCX,discrete thrombi seen in any vessel...overall improved f low compared to 03/15 acute angiogram." TTE 03/30 with previously seen wall motion abnormalitie s and improved systolic function. Patient was started on ASA 81mg daily, clopidogrel 75mg po daily, atorvastatin 40mg po daily, and metoprolol succinate 25mg daily--which he will sachi nue on discharge. Low-dose lisinopril and ISMN were added as well. Cardiology has arranged f or him to follow up closely with a local maintenance coordinator in [place]. He wias dischargeed wi th a LifeVest for VT/VF protection in the short term as he recovers (too soon for ICD consid eration). D. Echocardiogram 03/30/2017 shows left ventricular cavity size is normal, visually estimat ed left ventricular ejection fraction is 30 - 35%, left ventricular systolic thickening is s egmentally abnormal, right ventricular size, thickness and function are normal, compared to the most recent exam dated, 03/19/17, the LVEF has improved slightly, segmental wall motion abnormalities remain.Left atrial appendage was noted and patient was started on heparin, followed with warfarin. E. Today, patient is feeling good. He denies any cardiac symptoms. He was told to stop ta dimitris Plavix and warfarin by PCP for unclear reason. Patient is physically active. He has be en walking around his house without any cardiac symptoms. There is no chest pain or chest d iscomfort both at rest and on exertion. Patient denies breathlessness. There is no palpita tion dizziness or lightheadedness. There is no signs and symptoms of overt congestive heart failure. He is in a class I of [employer] functional class. There is no fluid retention on physical examin ation. 2. Toxic metabolic encephalopathy A. Problem completely resolved. 3. Left atrial appendage thrombus A. Noted on MARKY in the [place] during ECMO decannulation. Completedheparin gtt bridge 03/29 to therapeutic warfarin. 4. Normocytic anemia 5. Thrombocytosis A. Problem was resolved at [facility]. PLAN: 1. I spend time at length talking about natural course, treatment and prognosis of CAD with ischemic cardiopathy. 2. Restart Plavix 300 mg today then tomorrow back to 75 mg once a day. Patient needs Plavi x at least for 6 months to minimize stent thrombosis. 3. Increase lisinopril to 10 mg once a day to treat cardiopathy. 4. Stop isosorbide mononitrate because he has no chest pain. 5. Check blood pressure x 2 weeks. Check medical in 1 week. 6. Echocardiogram is warranted to assess cardiac structure. If there is no evidence of thr ombus, patient can stop warfarin. 7. Patient also can stop wearing LifeVest if LVEF is about 35%. 8. Switch metoprolol to Coreg 3.125 mg twice a day. I believe that Coreg will be more effe ctive than metoprolol to treat ischemic cardiopathy. 9. I recommend a therapeutic lifestyle change including walking 30 minutes a day, choosing healthy choices of diet, including DASH diet and weight reduction. 10. Follow up in 2-3 weeks to uptitrate lisinopril and carvedilol. Heather Cui am acting as a scribe on behalf of, and in the presence of Lauren Figueroa MD. I have reviewed and edited this note. Heather Cui Weighmaster Lead 05/04/2017 I, Lauren Figueroa MD, personally performed the services described in this documentation, as scribed in my presence and it is both accurate and complete. Heather Cui, Med Ass t 05/04/2017 15:35 Electronically signed by: Lauren Figueroa MD [facility] 05/04/2017 Portions of this chart may have been created with [email or web address] voice recognition software. Occasi onal wrong-word or sound-alike substitutions may have occurred due to the inherent cansceo itations of voice recognition software. Please read [...] HOWELL | | | | | | [phone] | | | | | | | | +--------+ + + + + | 04/16/ | Office | Cardiology | Alin Anderson | | | 2019 | Visit | | MD [address] | | | | | [address] | | | | | | [place] [address] | | | | | | [phone] | | | | | | | | +--------+ + + + + | 04/16/ | Procedure | Cardiology | | | | 2019 | visit | | | | +--------+ + + + + | 04/25/ | Office | Cardiology | Rocio Pearl, | | | 2019 | Visit | | MD [address] | | | | | | [place] | | | | | | [address] | | | | | | | | +--------+ + + + + + +------+--------+ + + | Name | Type | Priori | Associated Diagnoses | Order Schedule | | | | ty | | | + +------+--------+ + + | Basic Metabolic | Lab | Routin | Coronary artery | Expected: | | Panel | | e | disease, angina | 05/04/2017, Expires: | | | | | presence | 05/04/2018 | | | | | unspecified, | | | | | | unspecified vessel | | | | | | or lesion type, | | | | | | unspecified whether | | | | | | [place] or | | | | | | transplanted heart | | + +------+--------+ + + documented as of this encounter Procedures + +--------+ + + + | Procedure Name | Priori | Date/Time | Associated Diagnosis | Comments | | | ty | | | | + +--------+ + + + | ECG 12 LEAD | Routin | 05/04/2017 | Coronary artery | Results for this | | | e | 3:20 PM | disease, angina | procedure are in the | | | | PDT | presence | results section. | | | | | unspecified, | | | | | | unspecified vessel | | | | | | or lesion type, | | | | | | unspecified whether | | | | | | [place] or | | | | | | transplanted heart | | + +--------+ + + + documented in this encounter Results ECHO Complete (05/07/2017 8:45 AM PDT) + +-------+ + + + | Component | Value | Ref Range | Performed | Pathologist | | | | | At | Signature | + +-------+ + + + | LVEF-TTE | 40 | | [facility] | | | [facility] | | | [facility] | | | [facility] | | | [facility] | | | | | | [facility] - | | | | | | IMAGING | | + +-------+ + + + + + | Specimen | + + | | + + + +-- + | Narrative | P erformed At | + +-- + | Transthoracic | [facility] | | Echocardiography Report (TTE) Demographics Patient Name MIKE SANTILLAN | | RON Room Number J Patient Number | [facility] | | [id number] Date of Study 05/07/2017 Visit Number | - IMAGING | | [id number] Referring | | | Physician CAROLINA AGUILAR Number Date of 1955 | | | Pool Hall Inspector CHRISTEN LILLY, | | | [place] Age | | | 61 year(s) Interpreting | | | CAROLINA AGUILAR | | | Raw Stock Dyeing Machine Tender LAUREN FIGUEROA MD Gender | | | Male Nurse | | | Stress Print Traffic Manager Procedure Type of Study TTE procedure: | | | ECHO Complete. Procedure dateDate: 05/07/2017Start: 08:06 AM Technical | | | Quality: Adequate visualizationStudy Location: Echo Lab Patient | | | Status: RoutineHeight: 70 inchesWeight: 187 poundsBSA: 2.03 m^2BMI: | | | 26.83 kg/m^2Rhythm: Normal Sinus Rhythm ConclusionsSummary1. Mild left | | | atrial dilatation.2. Normal left ventricular size. There is a | | | segmental wall motionabnormality with thinning and severe hypokinesis | | | of the entire anterior andanteroseptal region. Overall, left | | | ventricular systolic function ismoderately decreased. LVEF is | | | 35-40%.3. Grade 1 left ventricular diastolic dysfunction.4. Mild | | | mitral valve agitation.5. Normal right-sided pressure.6. Normal IVC | | | with normal respiratory collapse. | | | Signature | | | | | | AM | | | -------- FindingsMitral ValveMitral valve appears structurally and | | | functionally normal.Mild mitral regurgitation.Aortic ValveAortic valve | | | is trileaflet without significant stenosis or regurgitation.Tricuspid | | | ValveStructurally normal tricuspid valve with trace | | | regurgitation.Pulmonic ValveStructurally normal pulmonic valve without | | | significant stenosis orregurgitation.Left AtriumThe left atrium is | | | mildly dilated.Left VentricleNormal left ventricular cavity | | | size.Ejection fraction is visually estimated at 35-40%.Impaired | | | relaxation compatible with diastolic dysfunction (reversed | | | E/Aratio).There is severe hypokinesis of the anterior and | | | anteroseptalRight AtriumNormal right atrium.Right VentricleNormal | | | right ventricular size.Right ventricle global systolic function is | | | normal.TAPSE = 1.6 cm.Pericardial EffusionNo evidence of pericardial | | | effusion.Pleural EffusionNo evidence of pleural | | | effusion.MiscellaneousNormal aortic root.The IVC appears normal.IVC | | | respiratory change in dimension > 50%. Valves Mitral Valve Peak | | | E-Wave: 0.44 m/s Peak A-Wave: 0.73 m/s Tissue Doppler Septal e' | | | Velocity: 0.06 m/s Aortic Valve Tricuspid Valve TR Velocity: 2.5 | | | m/s Structures Left Atrium LA A/P Dimension: 4.3 cm | | | LA Area: 18.85 cm^2 LA Vol/BSA Index: 25 mL/m^2 | | | LA Volume: 51.69 ml | | | EF [id number]% Left | | | Ventricle Diastolic Dimension: 4.6 cm Systolic Dimension: | | | 3.88 cm Septum Diastolic: 0.9 cm PW Diastolic: 1 cm EF Calculated: | | | 35.82% Miscellaneous Aorta Aortic Root: 3.36 cm Ascending Aorta: | | | 3.37 cm | | | 05/07/2017 09:06 AM | | | | | | | | |Findings | | |Mitral Valve | | |Mitral valve appears structurally and functionally normal. | | |Mild mitral regurgitation. | | |Aortic Valve | | |Aortic valve is trileaflet without significant stenosis or regurgitation. | | |Tricuspid Valve | | |Structurally normal tricuspid valve with trace regurgitation. | | |Pulmonic Valve | | |Structurally normal pulmonic valve without significant stenosis or | | |regurgitation. | | |Left Atrium | | |The left atrium is mildly dilated. | | |Left Ventricle | | |Normal left ventricular cavity size. | | |Ejection fraction is visually estimated at 35-40%. | | |Impaired relaxation compatible with diastolic dysfunction (reversed E/A | | |ratio). | | |There is severe hypokinesis of the anterior and anteroseptal | | |Right Atrium | | |Normal right atrium. | | |Right Ventricle | | |Normal right ventricular size. | | |Right ventricle global systolic function is normal. | | |TAPSE = 1.6 cm. | | |Pericardial Effusion | | |No evidence of pericardial effusion. | | |Pleural Effusion | | |No evidence of pleural effusion. | | |Miscellaneous | | |Normal aortic root. | | |The IVC appears normal. | | |IVC respiratory change in dimension > 50%. | | | | | |Valves | | | | | | Mitral Valve | | | | | | Peak E-Wave: 0.44 m/s | | | Peak A-Wave: 0.73 m/s | | | | | | Tissue Doppler | | | | | | Septal e' Velocity: 0.06 m/s | | | | | | Aortic Valve | | | | | | Tricuspid Valve | | | | | | TR Velocity: 2.5 m/s | | | | | |Structures | | | | | | Left Atrium | | | | | | LA A/P Dimension: 4.3 cm LA Area: 18.85 cm^2 | | | LA Vol/BSA Index: 25 mL/m^2 LA Volume: 51.69 ml | | | EF [id number]% | | | | | | Left Ventricle | | | | | | Diastolic Dimension: 4.6 cm Systolic Dimension: 3.88 cm | | | Septum Diastolic: 0.9 cm | | | PW Diastolic: 1 cm | | | EF Calculated: 35.82% | | | | | | Miscellaneous | | | | | | Aorta | | | | | | Aortic Root: 3.36 cm | | | Ascending Aorta: 3.37 cm | | | | | + +-- + + + | Procedure Note | + + | Clayton Cortes Results In - 05/07/2017 9:06 AM PDT Transthoracic Echocardiography Report | | (TTE) Demographics Patient Name MIKE VELASQUEZ Room Number J Patient | | Number [id number] Date of Study 05/07/2017 Visit Number [id number] | | Referring Physician CAROLINA AGUILAR Number Date of | | 1955 Pool Hall Inspector CHRISTEN LILLY, | | [place] Age 61 year(s) Interpreting | | CAROLINA AGUILAR Raw Stock Dyeing Machine Tender LAUREN | | MD CAROLINA Gender Male 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 TechnicianProcedureType of Study TTE procedure: ECHO Complete.Procedure dateDate: | | 05/07/2017Start: 08:06 AMTechnical Quality: Adequate visualizationStudy Location: Echo | | LabPatient Status: RoutineHeight: 70 inchesWeight: 187 poundsBSA: 2.03 m^2BMI: 26.83 | | kg/m^2Rhythm: Normal Sinus RhythmConclusionsSummary1. Mild left atrial dilatation.2. | | Normal left ventricular size. There is a segmental wall motionabnormality with thinning | | and severe hypokinesis of the entire anterior andanteroseptal region. Overall, left | | ventricular systolic function ismoderately decreased. LVEF is 35-40%.3. Grade 1 left | | ventricular diastolic dysfunction.4. Mild mitral valve agitation.5. Normal right-sided | | pressure.6. Normal IVC with normal respiratory | | collapse.Signature | | ------ Electronically signed by LAUREN FIGUEROA MD(Interpreting physician) on | | 05/07/2017 09:06 | | AM FindingsMi | | tral ValveMitral valve appears structurally and functionally normal.Mild mitral | | regurgitation.Aortic ValveAortic valve is trileaflet without significant stenosis or | | regurgitation.Tricuspid ValveStructurally normal tricuspid valve with trace | | regurgitation.Pulmonic ValveStructurally normal pulmonic valve without significant | | stenosis orregurgitation.Left AtriumThe left atrium is mildly dilated.Left | | VentricleNormal left ventricular cavity size.Ejection fraction is visually estimated at | | 35-40%.Impaired relaxation compatible with diastolic dysfunction (reversed | | E/Aratio).There is severe hypokinesis of the anterior and anteroseptalRight AtriumNormal | | right atrium.Right VentricleNormal right ventricular size.Right ventricle global | | systolic function is normal.TAPSE = 1.6 cm.Pericardial EffusionNo evidence of | | pericardial effusion.Pleural EffusionNo evidence of pleural effusion.MiscellaneousNormal | | aortic root.The IVC appears normal.IVC respiratory change in dimension > 50%.Valves | | Mitral Valve Peak E-Wave: 0.44 m/s Peak A-Wave: 0.73 m/s Tissue Doppler Septal e' | | Velocity: 0.06 m/s Aortic Valve Tricuspid Valve TR Velocity: 2.5 m/sStructures Left | | Atrium LA A/P Dimension: 4.3 cm LA Area: 18.85 cm^2 LA Vol/BSA | | Index: 25 mL/m^2 LA Volume: 51.69 ml | | EF Urlejzpvx84% Left Ventricle Diastolic Dimension: 4.6 cm | | Systolic Dimension: 3.88 cm Septum Diastolic: 0.9 cm PW Diastolic: 1 cm EF Calculated: | | 35.82% Miscellaneous Aorta Aortic Root: 3.36 cm Ascending Aorta: 3.37 cm | |Summary | |1. Mild left atrial dilatation. | |2. Normal left ventricular size. There is a segmental wall motion | |abnormality with thinning and severe hypokinesis of the entire anterior and | |anteroseptal region. Overall, left ventricular systolic function is | |moderately decreased. LVEF is 35-40%. | |3. Grade 1 left ventricular diastolic dysfunction. | |4. Mild mitral valve agitation. | |5. Normal right-sided pressure. | |6. Normal IVC with normal respiratory collapse. | | | |Signature | | | | Electronically signed by LAUREN FIGEUROA MD(Interpreting physician) on | | 05/07/2017 09:06 AM | | | | | |Findings | |Mitral Valve | |Mitral valve appears structurally and functionally normal. | |Mild mitral regurgitation. | |Aortic Valve | |Aortic valve is trileaflet without significant stenosis or regurgitation. | |Tricuspid Valve | |Structurally normal tricuspid valve with trace regurgitation. | |Pulmonic Valve | |Structurally normal pulmonic valve without significant stenosis or | |regurgitation. | |Left Atrium | |The left atrium is mildly dilated. | |Left Ventricle | |Normal left ventricular cavity size. | |Ejection fraction is visually estimated at 35-40%. | |Impaired relaxation compatible with diastolic dysfunction (reversed E/A | |ratio). | |There is severe hypokinesis of the anterior and anteroseptal | |Right Atrium | |Normal right atrium. | |Right Ventricle | |Normal right ventricular size. | |Right ventricle global systolic function is normal. | |TAPSE = 1.6 cm. | |Pericardial Effusion | |No evidence of pericardial effusion. | |Pleural Effusion | |No evidence of pleural effusion. | |Miscellaneous | |Normal aortic root. | |The IVC appears normal. | |IVC respiratory change in dimension > 50%. | | | |Valves | | | | Mitral Valve | | | | Peak E-Wave: 0.44 m/s | | Peak A-Wave: 0.73 m/s | | | | Tissue Doppler | | | | Septal e' Velocity: 0.06 m/s | | | | Aortic Valve | | | | Tricuspid Valve | | | | TR Velocity: 2.5 m/s | | | |Structures | | | | Left Atrium | | | | LA A/P Dimension: 4.3 cm LA Area: 18.85 cm^2 | | LA Vol/BSA Index: 25 mL/m^2 LA Volume: 51.69 ml | | EF Inaralhze08% | | | | Left Ventricle | | | | Diastolic Dimension: 4.6 cm Systolic Dimension: 3.88 cm | | Septum Diastolic: 0.9 cm | | PW Diastolic: 1 cm | | EF Calculated: 35.82% | | | | Miscellaneous | | | | Aorta | | | | Aortic Root: 3.36 cm | | Ascending Aorta: 3.37 cm | + + + + + + + | Performing | Address | City/State/Zipcode | Phone Number | | Organization | | | | + + + + + | [facility] | [address] | [place] | [phone] | | [facility] | | [address] | | | - IMAGING | | | | + + + + + ECG 12 lead (05/04/2017 3:20 PM PDT) + + + + + + | Component | Value | Ref Range | Performed | Pathologist | | | | | At | Signature | + + + + + + | VENTRICULAR | 81 | BPM | [facility] | | | RATE EKG | | | | | + + + + + + | ATRIAL RATE | 81 | BPM | [facility] | | + + + + + + | P-R | 166 | ms | [facility] | | | INTERVAL | | | | | + + + + + + | QRS | 114 | ms | [facility] | | | DURATION | | | | | + + + + + + | Q-T | 408 | ms | [facility] | | | INTERVAL | | | | | + + + + + + | Q-T | 473 | ms | [facility] | | | INTERVAL | | | | | | (CORRECTED) | | | | | + + + + + + | P WAVE AXIS | 71 | degrees | [facility] | | + + + + + + | QRS AXIS | -60 | degrees | [facility] | | + + + + + + | T AXIS | 100 | degrees | [facility] | | + + + + + + | INTERPRETAT | Sinus rhythm with | | [facility] | | | ION TEXT | occasional premature | | | | | | ventricular | | | | | | complexesLeft axis | | | | | | deviationAnteroseptal | | | | | | infarct (cited on or | | | | | | before 04-MAY-2017)T | | | | | | wave abnormality, | | | | | | consider lateral | | | | | | ischemiaAbnormal ECGWhen | | | | | | compared with ECG of | | | | | | 04-MAY-2017 15:19, | | | | | | (Unconfirmed)premature | | | | | | ventricular complexes | | | | | | are now presentConfirmed | | | | | | by LAUREN FIGUEROA MD | | | | | | ([id number]) on 05/05/2017 | | | | | | 6:03:03 AM | | | | + + [...] or lesion | | type, unspecified whether [place] or transplanted heart - Primary | + + documented in this encounter
--- OUTSIDE RECORDS SUMMARY | ~2020-03-04 | XMS | Encounter Summary ---
Demographics + + + | Address | [address] | | | [place] [address] | + + + | Home Phone | | + + + | Preferred Language | Unknown | + + + | Marital Status | | + + + | Congregational Affiliation | Unknown | + + + | Race | Unknown | + + + | Ethnic Group | Unknown | + + + Author + + + | Author | [facility] | | | and [place] | + + + | Organization | [facility] | | | and [place] | + + + | Address | Unknown | + + + | Phone | Unavailable | + + + Support + + + + + | Name | Relationship | Address | Phone | + + + + + | [place] Will | ECON | [place], [place] | | | | | [address] | | + + + + + Care Team Providers + +------+ + | Care Informatics Analyst Name | Role | Phone | [...] | Jenny, | Medication Refill | | 2019 | | CARDIOLOGY [address] | Hansa, PROFESSOR OF EXERCISE SCIENCE [address] | | | | | [place], | [place], | | | | | [place] [address] | [place] [address] | | | | | [phone] | [phone] | | | | | | | [...] | | | | [address] [place] | | | | | | [address] | | | | | | | | +--------+ + + + + | 04/16/ | Office | Cardiology | Alin Anderson | | | 2019 | Visit | | MD [address] | | | | | | [address] | | | | | | [place] [address] | | | | | | [phone] | | | | | | | [...] [place] | | | | | | [address] | | | | | | | | +--------+ + + + + documented as of this encounter Visit Diagnoses Not on filedocumented in this encounter"
--- OUTSIDE RECORDS SUMMARY | ~2020-03-04 | XMS | Encounter Summary ---
Demographics + + + | Address | [address] | | | [place] [address] | + + + | Home Phone [...] [place], [place] | | | | | [address] | | + + + + + Care Team Providers + +------+ + | Care Weaver Apprentice Name | Role | Phone | + [...] Provider Unknown | | | | | [place], [place] | [phone] | | | | | [address] | (Fax) | | | | | [phone] | | | +--------+ + + + [...] [place] | | | | | | [address] | | | | | | | | +--------+ + + + + | 04/16/ | Office | Cardiology | Alin Anderson | | | 2019 | Visit | | MD Cheryl Arreguin | | | | | | [address] | | | | | | [place] [address] | | | | | | [phone] | | | | | | | [...] [place] | | | | | | [address] | | | | | | | [...] documented in this encounter Results ECHO Complete (10/03/2017 3:59 AM PST) + + | [...] | + + | Clayton Cortes - 04/20/2019 8:30 AM PDT This is a non-reportable procedure | | without a radiologist report and isused for image storage only | + + documented in this encounter Visit Diagnoses + + | Diagnosis | + + | Pain Generalized pain | + + documented in this encounter"
--- OUTSIDE RECORDS SUMMARY | ~2020-03-04 | XMS | Encounter Summary ---
Demographics + + + | Address | [address] | | | [place] [address] | + + + | Home Phone [...] [place], [place] | | | | | [address] | | + + + + + Care Team Providers + +------+ + | Care Time Lock Expert Name | Role | Phone | + [...] Echo | | | | | | [place], | [address] | | | | | Biventricula | Hansa, REFINISH TECHNICIAN | [place], | | | | | r ICD | [address] | [place] | | | | | (implantable | [address] | [address] | | | | | | [place], | Phone: | | | | | cardioverter | [place] | [phone] | | | | | -defibrillat | [address] | Fax: | | | | | or) in place | Phone: | [phone] | | | | | Ischemic | [phone] | | | | | | cardiomyopat | Fax: | | | | | | hy | [phone] | | | | | | Procedures | | | | | | | ECHO | | | | | | | Complete [place] | | | | | | | ECHO HEART | | | | | | | [place] | | | | | | | [address] | | | | | | | [place] | | | | | | | [...] + + | 11/11/ | Office | [facility] | Jenny, | LICENSED PROFESSIONAL COUNSELOR-D (AICD) | | 2017 | Visit | CARDIOLOGY [address] | ADARSH [address] | [employer] 10/16/17 | | | | [address] [place], | [address] [place], | [facility] | | | | [place] [phone] | [place] [phone] | (Primary Dx); | | | | [phone] | [phone] | Tachycardia; | | | | | | Ischemic | | | | | | cardiomyopathy; | | | | | | Coronary artery | | | | | | disease involving | | | | | | mohegan coronary | | | | | | artery of mohegan | | | | | | heart without angina | | | | | | pectoris; Acute | | | | | | anterior wall DE | | | | | | ([facility]); H/O atrial | | | | | [...] + | Blood Pressure | 124/70 | 11/11/2017 9:00 AM | | | | | PST | | + + + + + | Pulse | 64 | 11/11/2017 9:00 AM | | | | | PST | | + + + + + | Temperature | - | - | | + + + + + | Respiratory Rate | 12 | 11/11/2017 9:00 AM | | | | | PST | | + + + + + | Oxygen Saturation | - | - | | + + + + + | Inhaled Oxygen | - | - | | | Concentration | | | | + + + + + | Weight | 96.6 kg (212 lb 15.4 | 11/11/2017 9:00 AM | | | | oz) | PST | | + + + + + | Height | 177.8 cm (5' 10") | 11/11/2017 9:00 AM | | | | | PST | | + + + + + | Body Mass Index | 30.56 | 11/11/2017 9:00 AM | | | | | PST | | + + + + + documented in this encounter Progress Kelly Verde RN - 11/11/2017 10:00 AM PST PATIENT NAME: Bob Will : 1955: AGE: 62 y.o. ICD Evaluation Report November 11, 2017 Reason for evaluation: routine Indication for ICD: ICD-10-CM ICD-9-CM 1. Implantable defibrillator reprogramming/check Z45.02 V53.32 Device Interrogation CANCELED: Device Interrogation - Remote 2. LICENSED PROFESSIONAL COUNSELOR-D (AICD) [employer] 10/16/17 [facility] Z95.810 V45.02 Device Interrogation CANCELED: Device Interrogation [...] interrogation due in office in 2 months. Hansa Whitehead ARN P - 11/11/2017 10:00 AM PST PATIENT NAME: Bob Will : 1955: AGE: 62 y.o. PRIMARY CARE: Chato Matson MD OUTPATIENT FOLLOW UP VISIT Date of Service: 11/11/2017 HISTORY OF PRESENT ILLNESS: Bob Will is a 62 y.o. male with a history of coronary artery disease post recent anterior wall DE, post PTCA and stents of the left main, LAD and LCx on 03/15/17, cardiac shoc k, left atrial appendage thrombus, recent status post stents to , LICENSED PROFESSIONAL COUNSELOR-D placement in [facility] on 10/17/2017. He was last [...] Active Problem List Diagnosis Acute anterior wall DE CAD (coronary artery disease) Ischemic cardiomyopathy Pulmonary edema LICENSED PROFESSIONAL COUNSELOR-D (AICD) [employer] 10/16/17 [facility]cker Implantable defibrillator reprogramming/check H/O atrial flutter Tachycardia CURRENT MEDICATIONS Current Outpatient Prescriptions Medication Sig Dispense Refill aspirin 81 MG tablet Take 81 mg by mouth Daily. atorvaSTATin (LIPITOR) 80 MG tablet Take 1 tablet by mouth nightly. 30 tablet 5 Cholecalciferol (VITAMIN D-3) 38052 units CAPS Take by mouth Once a [...] kg (212 lb 15.4 oz) | B DE 30.56 kg/m Physical Exam Constitutional: He is [...] RESULTS reviewed during visit today primarily from [facility]: LIPID Lab Results Component Value Date LDLEX [...] PLTEX 226 10/17/2017 I reviewed records from [facility] for office visit on 10/2017 whic h [...] shock requiring IABP, pressor (dopamine, norepin ephrine). [facility] and [facility] were on divert. Patient wasn't transferred to [facility]. B. Echocardiogram 03/17/2017 shows LV ejection fraction is severely decreased, vi sually estimated left ventricular ejection fraction is 20 - 25%, left ventricular systolic t hickening is segmentally abnormal, mildly reduced RV systolic function. Normal RV size, no s ignificant valvular abnormalities seen, compared to the most recent exam dated, 03/15/2017, there is no significant changes C. At [facility], patient had another STEMI code [...] to follow up closely with a local air liaison and special staff in [place]. He wias dis chargeed with a LifeVest [...] we will transfer the patie nt to [facility] for consideration of urgent coronary [...] is upgraded to a class I-II of [place] [employer] functional class. Heart fa ilure [...] myocardium in these regions. C. S/P [employer] LICENSED PROFESSIONAL COUNSELOR-D 10-16-17 Dr Darby, [facility]. Ice interrogation today shows one [...] a week ago. This was after his DE and a t the same time patient was having ventricular tachycardia. He was initiated on amiodarone and then discontinued before discharge. The plan is to monitor through his device and see i f this is a problem that needs to be addressed. Patient is not on anticoagulation he was le ft that way from [facility]. Patient has had several GI [...] this chart may have been created with [employer] voice recognition software. Occasi onal wrong-word or [...] [address] | | | | | | [address] | | | | | | [place] [address] | | | | | | [phone] | | | | | | | | +--------+ + + + + | 04/16/ | Procedure | Cardiology | | | | 2019 | visit | | | | +--------+ + + + + | 04/25/ | Office | Cardiology | Rocio Pearl, | | | 2019 | Visit | | MD Cheryl URENA | | | | | | [place] | | | | | | [address] | | | | | | | | +--------+ + + + + + + +--------+ + + | Name | Type | Priori | Associated Diagnoses | Order Schedule | | | | ty | | | + + +--------+ + + | ECG 12 lead | ECG | Routin | LICENSED PROFESSIONAL COUNSELOR-D (AICD) | Ordered: 11/11/2017 | | | | e | [employer] 10/16/17 | | | | | | [facility] | | | | | | Tachycardia | | | | | | Ischemic | | | | | | cardiomyopathy | | | | | | Coronary artery | | | | | | disease involving | | | | | | mohegan coronary | | | | | | artery of mohegan | | | | | | heart without angina | | | | | | pectoris Acute | | | | | | anterior wall DE | | | | | | ([facility]) H/O atrial | | | | | | flutter | | + + +--------+ + + | ECHO Complete | Echocardiog | Routin | LICENSED PROFESSIONAL COUNSELOR-D (AICD) | Expected: | | | abby | e | [employer] 10/16/17 | 11/11/2017, Expires: | | | | | [facility] | 11/11/2018 | | | | | Ischemic | | | | | | cardiomyopathy | | + + +--------+ + + documented as of this encounter Visit Diagnoses + + | Diagnosis | + + | LICENSED PROFESSIONAL COUNSELOR-D (AICD) [employer] 10/16/17 [facility] Darby Zoe [place] | + + | Tachycardia Tachycardia, unspecified | + + | Ischemic cardiomyopathy Other specified forms of chronic ischemic heart disease | + + | Coronary artery disease involving mohegan coronary artery of mohegan heart without | | angina pectoris | + + | Acute anterior wall DE (HCC) Acute myocardial infarction of other anterior wall, | | episode of care unspecified | + + | H/O atrial flutter Personal history of other diseases of circulatory system | + + | Implantable defibrillator reprogramming/check Fitting and adjustment of automatic | | implantable cardiac defibrillator | + + documented in this encounter
--- OUTSIDE RECORDS SUMMARY | ~2020-03-04 | XMS | Encounter Summary ---
Demographics + + + | Address | [address] | | | [place] [address] | + + + | Home Phone [...] [place] | | | | | [address] | | + + + + + Care Team Providers + +------+ + | Care Mountain Guide Name | Role | Phone | + [...] Description | +--------+---------+ + + + | 11/01/ | Office | [facility] | Amy Olivares V, | Chronic systolic CHF | | 2020 | Visit | MED CTR CARDIAC | MD [address] | (congestive heart | | | | REHABILITATION [address] [place], [place] | failure) ([facility]) | | | | [address] | [address] | (Primary Dx) | | | | [place] [address] | | | | | | [phone] | | | +--------+---------+ + + + [...] this encounter Progress Notes Gael Woo - 11/01/2019 9:00 AM PSTPatient tolerated exercise session without [...] [place] | | | | | | [address] | | | | | | | | +--------+ + + + + | 04/16/ | Office | Cardiology | Alin Anderson | | | 2019 | Visit | | MD Cheryl Arreguin | | | | | | [address] | | | | | | [place] [address] | | | | | | [phone] | | | | | | | [...] [place] | | | | | | [address] | | | | | | | | +--------+ + + + + documented as of this encounter Visit Diagnoses + + | Diagnosis | + + | Chronic systolic CHF (congestive heart failure) (HCC) - Primary | + + documented in this encounter"
--- OUTSIDE RECORDS SUMMARY | ~2020-03-04 | XMS | Encounter Summary ---
Demographics + + + | Address | [address] | | | [place] [address] | + + + | Home Phone [...] [place], [place] | | | | | [address] | | + + + + + Care Team Providers + +------+ + | Care Finance Accounting Internship Name | Role | Phone | [...] | | | | | Ischemic | [place], | [address] | | | | | cardiomyopat | Hansa SOFA INSPECTOR | [place], | | | | | hy | [address] | [place] | | | | | Procedures | [address] | [address] | | | | | ECHO | [place], | Phone: | | | | | Complete [place] | [place] | [phone] | | | | | ECHO HEART | [address] | Fax: | | | | | [place] | Phone: | [phone] | | | | | [address] | [phone] | | | | | | [place] | Fax: | | | | | | ECHO HEART | [phone] | | | | | | [place] [...] + + | 11/24/ | Hospital | [facility] | [place], | Ischemic | | 2018 | Encounter | MED CTR ECHO [address] | [address]ARSH [address] | cardiomyopathy | | | | [address] [place] | [address] [place], | | | | | [place] [address] | [place] [address] | | | | | [phone] | [phone] | | | | | | | | | | | | Twan Spann, | | | | | | Technologist [...] 0 | | | | (VITAMIN D-3) [address] | mouth Once a week. | | [...] +---------+ + + | atorvaSTATin | Take 1 [...] +---------+ + + | lisinopril | Take 5 mg by mouth 2 | | 0 | | | | (PRINIVIL, ZESTRIL) | times daily. | | | | 8 | | 10 mg tablet | | [...] | every evening. | | | | 8 | | [...] [place] | | | | | | [address] | | | | | | | | +--------+ + + + + | 04/16/ | Office | Cardiology | Alin Anderson | | | 2019 | Visit | | MD [address] | | | | | | [address] | | | | | | [place] [address] | | | | | | [phone] | | | | | | | [...] [place] | | | | | | [address] | | | | | | | | +--------+ + + + + documented as of this encounter Procedures + +--------+ + + + | Procedure Name | Priori | Date/Time | Associated Diagnosis | Comments | | | ty | | | | + +--------+ + + + | ECHO COMPLETE | Routin | 11/24/2017 | Ischemic | Results for this | | | e | 2:04 PM | cardiomyopathy | procedure are in the | | | | PDT | | results section. | + +--------+ + + + documented in this encounter Results ECHO Complete (11/24/2017 2:04 PM PDT) + [...] Number J Patient Number | | | [id number] Date of Study 11/24/2017 Visit Number | | | [id number] Referring | | | Physician THERESE SY Number Date of 1955 | | | Vice President Financial TUCKER DOVE Age | | | 62 year(s) Interpreting LAUREN CHESTER MD | | | Boning Room Worker Gender | | | Male Nurse | | | Stress Signaling Project Engineer Procedure Type of Study TTE | | [...] | | | Index: 43 mL/m^2 EF Bslrevbvt69% | | | Left Ventricle Diastolic Dimension: [...] | LA Vol/BSA Index: 43 mL/m^2 EF Vcxwlksvw87% | | | | | | Left [...] Room Number J Patient | | Number [id number] Date of Study 11/24/2017 Visit Number [id number] | | Referring Physician THERESE SY Number Date of | | 1955 Vice President Financial TUCKER DOVE Age 62 | | year(s) Interpreting LAUREN CHESTER MD | | Boning Room Worker Gender Male 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 TechnicianProcedureType [...] Vol/BSA Index: 43 mL/m^2 EF | | Eebrdhncj39% Left Ventricle Diastolic Dimension: 4.9 cm Septum [...] | LA Vol/BSA Index: 43 mL/m^2 EF Ifhsciwqp90% | | | | Left Ventricle | [...] Diagnosis | + + | Ischemic cardiomyopathy Other specified forms of chronic ischemic heart disease | + + documented in this encounter"
--- OUTSIDE RECORDS SUMMARY | ~2020-03-04 | XMS | Encounter Summary ---
Demographics + + + | Address | [address] | | | [place] [address] | + + + | Home Phone [...] [place], [place] | | | | | [address] | | + + + + + Care Team Providers + +------+ + | Care Director Of Materials Name | Role | Phone | + +------+ + PCP | Unavailable | + +------+ + Encounter Details +--------+ + + + + | Date | Type | Department | Care Team | Description | +--------+ + + + + | 02/14/ | Hospital | [facility] | | | | 2009 | Encounter | MED CTR XRAY [address] | | | | | | [address] | | | | | | [place] [address] | | | | | | [phone] | | | +--------+ + + + [...] | | | | | [address] [place] | | | | | | [address] | | | | | | | | +--------+ + + + + | 04/16/ | Office | Cardiology | Alin Anderson | | | 2019 | Visit | | MD [address] | | | | | | [address] | | | | | | [place] [address] | | | | | | [phone] | | | | | | | | +--------+ + + + + | 04/16/ | Procedure | Cardiology | | | | 2019 | visit | | | | +--------+ + + + + | 08/19/ | Office | Cardiology | Rocio Pearl, | | | 2019 | Visit | | MD Cheryl URENA | | | | | | [place] | | | | | | [address] | | | | | | | | +--------+ + + + + documented as of this encounter Visit Diagnoses Not on filedocumented in this encounter"
--- OUTSIDE RECORDS SUMMARY | ~2020-03-04 | XMS | Encounter Summary ---
Demographics + + + | Address | [address] | | | [place] [address] | + + + | Home Phone [...] [place] | | | | | [address] | | + + + + + Care Team Providers + +------+ + | Care Marine Pilot Name | Role | Phone | [...] | 06/06/ | Implant | [facility] [place] | Carolina Lindarisa, | Implantable | | 2019 | Monitor | CARDIOLOGY [address] | [address] | defibrillator | | | | [place], | [place], | reprogramming/check | | | | [place] [address] | [place] [address] | (Primary Dx); | | | | [phone] | [phone] | Biventricular ICD | | | | [...] as of this encounter Procedure Notes Randy Fgiueroa MD - 06/06/2019 11:59 PM PDTAssociated Order(s): DEVICE INTERROGATION- R EMOTEProcedure(s): DEVICE INTERROGATION- REMOTEPre-Procedure Diagnose(s): Implantable defibr illator reprogramming/check; Biventricular ICD (implantable cardioverter-defibrillator) in p lace; Ischemic cardiomyopathyDate of Remote Interrogation: 04/19/19 Refer to [employer] documentation and remote PDF scanned into [employer]ur for remote interrogation re sults. Data collected [...] | | | | | | [facility] | | | | | | [address] [place] | | | | | | [id number] | | | | | | | | +--------+ + + + + | 04/16/ | Office | Cardiology | Alin Anderson | | | 2019 | Visit | | MD Cheryl Arreguin | | | | | | [address] | | | | | | [place] [address] | | | | | | [phone] | | | | | | | [...] [place] | | | | | | [address] | | | | | | | [...] remote PDF scanned into | | | [facility] for remote interrogation results. Data collected [...]
--- OUTSIDE RECORDS SUMMARY | ~2020-03-04 | XMS | Encounter Summary ---
Demographics + + + | Address | [address] | | | [place] [address] | + + + | Home Phone [...] [place], [place] | | | | | [address] | | + + + + + Care Team Providers + +------+ + | Care Thai Masseur Name | Role | Phone | + [...] W | ) | | | | [place], | [place], | | | | | [place] [address] | [place] [address] | | | | | [phone] | [phone] | | | | | | | [...] paperwork for Cardiomyopathy faxed to Marina at [phone] ....................... ....................Lilian Machado RN on 06/05/17 at [...] 06/04/2017 10:25 AM PDTPatient's , [place] [facility]'s work release. At his [...] | | | | [address] [place] | | | | | | [id number] | | | | | | | | +--------+ + + + + | 04/16/ | Office | Cardiology | Alin Anderson | | | 2019 | Visit | | MD [address] | | | | | | [address] | | | | | | [place] [address] | | | | | | [phone] | | | | | | | [...] [place] | | | | | | [address] | | | | | | | | +--------+ + + + + documented as of this encounter Visit Diagnoses Not on filedocumented in this encounter
--- OUTSIDE RECORDS SUMMARY | ~2020-03-04 | XMS | Encounter Summary ---
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 | Phone | + [...] | Radiology | Diagnoses | | [facility] | | | | | Coronary | Jenny, | Medicine | | | | | artery | ADARSH Santo | [address] | | | | | disease | [address] | [place], | | | | | involving | [place] | [place] | | | | | [place] | [place], | [address] | | | | | coronary | [place] | Phone: | | | | | artery of | [address] | [phone] | | | | | [place] heart | Phone: | Fax: | | | | | without | [phone] | [phone] | | | | | angina | Fax: | | | | | | pectoris | [phone] | | | | | | Acute | | | | | | | systolic | | | | | | | congestive | | | | | | | heart | | | | | | | failure | | | | | | | (HCC) | | | | | | | Procedures | | | | | | | NM Nuclear | | | | | | | Stress Test | | | | | | | (Vasodilator | | | | | | | ) | | | +--------+--------+ + + + + Encounter Details +--------+ + + + + | Date | Type | Department | Care Team | Description | +--------+ + + + + | 04/19/ | Orders Only | [facility] | Jenny, | Coronary artery | | 2018 | | CARDIOLOGY [address] | AD[address]SH [address] | disease involving | | | | [place], | [place], | [place] coronary | | | | [place] [address] | [place] [address] | artery of [place] | | | | [phone] | [phone] | heart without angina | | | | | | pectoris (Primary | | | | | | Dx); Acute systolic | | | | | | congestive heart | | | | | | failure (HCC) | +--------+ + + + [...] [place] | | | | | | [id number] | | | | | | | | +--------+ + + + + | 04/16/ | Office | Cardiology | Alin Anderson | | | 2019 | Visit | | MD [address] | | | | | | [address] | | | | | | [place] [address] | | | | | | [phone] | | | | | | | | +--------+ + + + + | 04/16/ | Procedure | Cardiology | | | | 2019 | visit | | | | +--------+ + + + + | 04/25/ Office | Cardiology | Rocio Pearl, | | | 2019 | Visit | | MD [address] | | | | | | [place] | | | | | | [address] | | | | | | | | +--------+ + + + + + + +--------+ + + | Name | Type | Priori | Associated Diagnoses | Order Schedule | | | | ty | | | + + +--------+ + + | NM Nuclear Stress | Cardiac | Routin | Coronary artery | Expected: | | Test (Vasodilator) | Nuclear | e | disease involving | 04/19/2019, Expires: | | | Medicine | | [place] coronary | 04/19/2020 | | | | | artery of [place] | | | | | | heart without angina | | | | | | pectoris Acute | | | | | | systolic congestive | | | | | | heart failure (HCC) | | + + +--------+ + + documented as of this encounter Visit Diagnoses + + | Diagnosis | + + | Coronary artery disease involving [place] coronary artery of [place] heart without | | angina pectoris - Primary | + + | Acute systolic congestive heart failure (HCC) Acute systolic heart failure | + + documented in this encounter"
--- OUTSIDE RECORDS SUMMARY | ~2020-03-04 | XMS | Encounter Summary ---
Demographics + + + | Address | [address] | | | [place] [address] | + + + | Home Phone | | + + + | Preferred Language | Unknown | + + + | Marital Status | | + + + | Orthodox Affiliation | Unknown | + + + | Race | Unknown | + + + | Ethnic Group | Unknown | + + + Author + + + | Author | [facility] | | | and [place] | + + + | Organization | [facility] | | | and [place] | + + + | Address | Unknown | + + + | Phone | Unavailable | + + + Support + + + + + | Name | Relationship | Address | Phone | + + + + + | [place] Will | ECON | [place], [place] | | | | | [address] | | + + + + + Care Team Providers + +------+ + | Care Furnace Charging Machine Operator Name | Role | Phone | + +------+ + PCP | Unavailable | + +------+ + Encounter Details +--------+---------+ + + + | Date | Type | Department | Care Team | Description | +--------+---------+ + + + | 03/15/ | Surgery | [facility] | Monse Mac MD | CV [facility] | | 2017 | | MED CTR CV INTRA OP | [address] | | | | | [address] | [place] | | | | | [place] | [address] | | | | | [address] | | | | | | [phone] | | | +--------+---------+ + + + [...] + + + | Blood Pressure | - | - | | + + + + + | Pulse | - | [...] + + + + | Weight | 111.1 kg (245 lb) | 03/15/2017 5:00 AM | | | | | PDT | | + + + + + | Height | 177.8 cm (5' 10") | 03/15/2017 5:00 AM | | | | | PDT | | + + + + + | Body Mass Index | 35.15 | 03/15/2017 5:00 AM | | | | | PDT | | + + + + + documented in this encounter Discharge Summaries Monse Mac MD - 03/15/2017 10:29 AM PDT Transfer SUMMARY PATIENT NAME/: Ron Will, (1955) DATE OF ADMISSION: 03/15/2017 DATE OF DISCHARGE: 03/15/2017 DISCHARGING PHYSICIAN: Anton Mac MD ADMITTING DIAGNOSIS: Acute Anterior SD DISPOSITION: Transfer to [facility] for CABG BRIEF HOSPITAL COURSE: Briefly, Mr. Will is a 61 y.o. male who was admitted on 03/15/2017 with acute anterior M I and was taken to the cathlab emergently where he was found to have totally occluded ostial LAD, 90% distal LM and 90% ostial LCx lesion. He developed cardiogenic shock and resp arres t requiring intubation while we were awaiting transfer for CABG. Once it was determined that he was no longer a surgical candidate, extremely high mortality, the LM, LAD and LCx were s tented and he was transported to [facility] via air ambulance., Electronically signed by Monse Mac MD at 7 10:33 AM PDTdocumented in this encounter Progress Notes Van Rodriges RN - 03/15/2017 8:33 AM PDTSee laboratory monitor print out. For vitals etc..Alia ctronically signed by Van Rodriges RN at 03/15/2017 8:33 AM PDTdocumented in this enc ounter H&P Notes Monse Mac MD - 03/15/2017 5:41 AM PDT PATIENT NAME: Ron Will : 1955: AGE: 61 y.o. REFERRED BY: No additional provider found PRIMARY CARE: No primary care provider on file. H & P Date of Service: 03/15/17 HISTORY OF PRESENT ILLNESS: Ron Will is a 61 y.o. male with multiple risks for CAD, woke up this am, had a ci garette, started developing chest pain and went to the ER in [facility] where the EKG showed ant SD and he was transported here via air ambulance. He has not had any angina, syncope, ch f, palpitations, decrease in ex cap or pedal edema. He has not had a CVA or TIA and does not have a contraindication to ANY placement. He has history of HTN, DM, Hi chol and he smokes 1 ppd. He claims to be compliant with his meds. CURRENT PROBLEMS There is no problem list on file for this patient. MEDICAL, SURGICAL, AND PERSONAL HISTORY No past surgical history on file. No family history on file. No family status information on file. Social History Social History Marital status: N/A Spouse name: N/A Number of children: N/A Years of education: N/A Social History Main Topics Smoking status: Not on file Smokeless tobacco: Not on file Alcohol use Not on file Drug use: Unknown Sexual activity: Not on file Other Topics Concern Not on file Social History Narrative No narrative on file CURRENT MEDICATIONS No current facility-administered medications for this encounter. No current outpatient prescriptions on file. ALLERGIES Allergies not on file ROS Negative except for what is listed above. OBJECTIVE: PHYSICAL EXAM HR=55; XP=757/80 HEENT--unremarkable; Obese; ERNIE. CV--RRR with distant HS; No mgr Lungs---clear Abd---obese Ext--no edema. ECG: NSR; Acute Anterior SD. LAB RESULTS: Pending. ASSESSMENT: AMI PLAN: Emergent cor angio; risks and benefits explained. Will get hospitalist consult after the procedure to help with DM etc. Electronically signed by: Monse Mac MD 03/15/2017 documented in this enco unter Procedure Notes Monse Mac MD - 03/15/2017 10:04 AM PDTAssociated Order(s): CV CARDIAC PROCEDURE LEFT CARDIAC CATHETERIZATION AND CORONARY INTERVENTION REPORT PATIENT NAME: Ron Will DATE OF : 1955 DATE OF PROCEDURE: 03/15/2017 PRIMARY CARE PROVIDER: No primary care provider on file. ALARM MECHANISM ADJUSTER: Dr. Monse Mac MD PRE-PROCEDURE DIAGNOSIS: Acute Anterior SD POST-PROCEDURE DIAGNOSIS: Same PROCEDURES PERFORMED: 1. Coronary Angiography 2. PCI of LM/LAD and LM/LCx---bifurcation lesion. 3. IABP placement. 4. Intubation. CAD Presentation: STEMI DESCRIPTION OF PROCEDURE: Informed consent was obtained from the patient, and a time-out was performed to verify the patient's identification and planned procedure. Please refer to the computer log entry form for precise details. The patient's Right groin and Right wrist was then prepped and draped in the usual sterile fashion, and anesthetized with 1% lidocaine. A 6F sheath was inserted in the RRA. Coronary angiography was performed in multiple views using 5 Bulgarian TIG and JR diagnostic catheters. After review of the digital images, I elected to proceed with the coronary intervention. T he patient's anticoagulation regimen consisted of Angiomax and Integrelin. A Ikari-4.0 guide was used to cannulate the LM vessel. The lesion was crossed with the PT Choice wires. It was predilated with 2.5X15 mm balloon for the distal LM to restore blood flow. IABP was carmelita jose in the RFA. A venous sheath was placed in the RFV. The lesion was then treated with a 3. 0X23 mm Xience ANY stent deployed at 14 john in the distal LM and proximal LAD. The LCx-90% l esion was then crossed with a new 2.0X12 mm balloon and pre-dilated; followed by deployment of 2.5X18mm ANY at 14 john. Estimated blood loss was: 50cc. Fluro Time: 16 Total Radiation Area Dose: 2963 GYCM2 Contrast: 200 mls of Omnipaque 350 COMPLICATIONS: the initial plan was to restore flow in the LAD and emergently transfer the patient to another facility for CABG since he had distal LM and surgical disease. Unfortunat beena, we were not able to transfer the patient expediently ([facility] did not have beds; [place] surgeons were busy with their own complications; finally [facility] accepted the patient but then transport became an issue regarding fixed wing travel and lack of availability of IABP RN's) In the meant time, the distal LM totally occluded, requiring double wiring of the LAD and LCx lesions, multiple balloon inflations of the LM to restore flow, use of multiple pre ssors and intubation (which was a prolonged procedure given the patient's thick neck and car diogenic shock). Defibrillation and use of multiple pressors was continued. And once it was determined that he was no longer a candidate for surgical revascularization emergently, the distal LM prox LAD were stented and so was the ostial LCx. He was then transported to [facility] very serious condition on multiple drips and IAPB---discussion with the family was carried to regarding his poor medical condition and the fact that he would probably not going to rvive this hospitalization. FINDINGS: Hemodynamics: Initial pressure was 110/60---but overall see complications listed above Left main coronary artery: 90% distal stenosis with dissection extending into the LAD. Left anterior descending coronary artery: 100% occlusion Circumflex coronary artery: 90% ostial stenosis with the LM dissection extending into the LCx. Right coronary artery: Diffuse luminal irregularities of a dominant RCA with no R to L col laterals. Post intervention: 0% stenosis of the distal LM, ostial LAD and ostial LCx. CONCLUSIONS: 1. Successful PCI with placement of 3.0X23 stent in the distal LM and ostial LAD reducing a 100% stenotic lesion to 0% residual stenosis. 2. Successful PCI with placement of 2.5X18 stent in the ostial LCx reducing a 90% stenotic lesion to 0% residual stenosis. 3. COMPLICATIONS: the initial plan was to restore flow in the LAD and emergently transfer the patient to another facility for CABG since he had distal LM and surgical disease. Unfort unately, we were not able to transfer the patient expediently ([facility] did not have beds; [facility] surgeons were busy with their own complications; finally [facility] accepted the patient but then transport became an issue regarding fixed wing travel and lack of availability of IABP RN's) In the meant time, the distal LM totally occluded, requiring double wiring of the LAD and LCx lesions, multiple balloon inflations of the LM to restore flow, use of multiple pressors and intubation (which was a prolonged procedure given the patient's thick neck and cardiogenic shock). Defibrillation and use of multiple pressors was continued. And once it was determined that he was no longer a candidate for surgical revascularization emergently, the distal LM prox LAD were stented and so was the ostial LCx. He was then transported to [facility] in very serious condition on multiple drips and IAPB---discussion with the family was car ried to regarding his poor medical condition and the fact that he would probably not going t o survive this hospitalization. Monse Mac MD [facility] DATE/TIME: 03/15/2017 10:05 03/15/2017 10:05 Ron Aguillon MD - 03/15/2017 9:14 AM PDTAssociated Order(s): INTUBATIONIntubation Date/Time: 03/15/2017 9:15 Performed by: RON HAWKINS Authorized by: MONSE MAC Consent: The procedure was performed in an emergent situation. Verbal consent not obtained. Indications: respiratory distress and respiratory failure Intubation method: video-assisted Patient status: sedated Preoxygenation: nonrebreather mask, BVM and SINAN/LMA Sedatives: etomidate Paralytic: succinylcholine Laryngoscope size: Alvarado 4 Tube size: 7.0 mm Tube type: cuffed Number of attempts: 3 Ventilation between attempts: IMLA/LMA Cricoid pressure: yes Cords visualized: yes Post-procedure assessment: chest rise, ETCO2 monitor and CO2 detector Breath sounds: equal Cuff inflated: yes ETT to lip: 22 cm Tube secured with: ETT gonzalez Chest x-ray findings: endotracheal tube in appropriate position Patient was in the laboratory monitor when I was called for emergency intubation on the patient. Teresita gonzalez was found to have left main disease and initially had been coded in the laboratory monitor and th had shocked him once. Patient was pending transfer to another facility for significant l eft main coronary artery obstruction. Patient appeared to be hypoxemic at the time Patient was preoxygenated with bag valve mask as well as with all nasal cannula oxygen. He was awake prior to intubation he was attempting to vomit without success.. He was premedic ated with etomidate and succinylcholine. Initial attempt with a 4 Alvarado blade - able to v isualize the cords and was unable to pass an 8.0 ET tube. Patient continued to be bagged. Second attempt patient started to have some retropharyngea l bleeding as patient was anticoagulated. Patient had a LMA placed and we were able to get his oxygen saturations into the high 80s before the third attempt. Patient placed on a propofol drip. Third and- Final attempt we placed a 7.0 ET tube via video laryngoscopy. I was able to see the port cords and pass the tube without difficulty. After intubation patient had oxygen s aturations in the 70s. We bagged the patient for approximately 30 minutes to try to get the patient's oxygen saturation stayed adequate amount. Due to patient's poor cardiac output patient was not able to get oxygen saturations up in a timely manner. Care was turned over back to the quality assurance lab technician that is managing this patient 's case. Critical care time for this patient was approximately 45 minutes excluding intubationElectr onically signed by Ron Hawkisn MD at 03/15/2017 9:23 AM PDTdocumented in th is encounter Miscellaneous Notes Goals of Richar - Van Rodriges RN - 03/15/2017 8:31 AM PDTLifeflight team received re port from animal laboratory technician team. 8:3 2 AM PDTGoals Van Nelson RN - 03/15/2017 8:04 AM PDTUpdated , regard ing pt condition. Advised her to come to [facility] and if pt leaves for [place] prior to her ar rival I will divert her. oals Van Nelson RN - 03/15/2017 7:29 AM PDTSpoke again with life flight. Fixed wing coming from [place] 45min, and 38n min for helicopter crew. They are now bringing balloon pump and team to operate. oals Van Nelson RN - 03/15/2017 7: 21 AM PDTAt 07;15 recalled [facility] to check on status, they are unable to come rotary win g, due to weight. Working on fixed wing. Films pushed, disc made. documented in this encounter Plan of Treatment [...] [place] | | | | | | [id number] | | | | | | | | +--------+ + + + + | 04/16/ | Office | Cardiology | Alin Anderson | | | 2019 | Visit | | MD [address] | | | | | | [address] | | | | | | [place] [address] | | | | | | [phone] | | | | | | | | +--------+ + + + + | 04/16/ | Procedure | Cardiology | | | | 2019 | visit | | | | +--------+ + + + + | 04/25/ | Office | Cardiology | Rocio Pearl, | | | 2019 | Visit | | [address] | | | | | | [place], [place] | | | | | | [address] | | | | | | | | +--------+ + + + + documented as of this encounter Procedures + +--------+ + + + | Procedure Name | Priori | Date/Time | Associated Diagnosis | Comments | | | ty | | | | + +--------+ + + + | CV COR ANGIO | Routin | 03/15/2017 | | | | | e | 9:41 AM | | | | | | PDT | | | + +--------+ + + + +---+--------+ | | | | | Proced | | | ure | | | Note - | | | | | | Vandana | | | , | | | Imran, | | | MD - | | | 07/09/ | | | 2017 | | | 10:04 | | | AM PDT | | | | | | LEFT | | | CARDIA | | | C | | | CATHET | | | ERIZAT | | | ION | | | AND | | | ALVARES | | | RY | | | INTERV | | | ENTION | | | | | | REPORT | | | PATIEN | | | T | | | NAME: | | | | | | Ron | | | J | | | McRobe | | | rtsDAT | | | E OF | | | : | | | | | | [birth year] | | | [id number] | | | ICAL | | | RECORD | | | | | | NUMBER | | | : | | | [id number] | | | [id number] | | | ATE OF | | | | | | PROCED | | | URE: | | | | | | 7/9/20 | | | 17 | | | | | | | | | | | | | | | | | | | | | | | | | | | | | | | | | | | | | | | PRIMAR | | | Y CARE | | | | | | PROVID | | | ER: | | | No | | | primar | | | y care | | | | | | provid | | | er on | | | file.P | | | RIMARY | | | | | | OPERAT | | | OR: | | | Dr. | | | Imran | | | Vandana | | | , | | | MDPRE- | | | PROCED | | | URE | | | DIAGNO | | | SIS: | | | Acute | | | | | | Anteri | | | or | | | MIPOST | | | -PROCE | | | DURE | | | DIAGNO | | | SIS: | | | SamePR | | | OCEDUR | | | ES | | | PERFOR | | | MED: | | | 1. | | | | | | Alvares | | | ry | | | Angiog | | | raphy2 | | | . PCI | | | of | | | LM/LAD | | | and | | | LM/LCx | | | ---bif | | | urcati | | | on | | | lesion | | | .3. | | | IABP | | | placem | | | ent.4. | | | | | | Intuba | | | tion.C | | | AD | | | Presen | | | tation | | | : | | | STEMID | | | ESCRIP | | | TION | | | OF | | | PROCED | | | URE:In | | | formed | | | | | | consen | | | t was | | | obtain | | | ed | | | from | | | the | | | patien | | | t, and | | | a | | | time-o | | | ut was | | | | | | perfor | | | med to | | | | | | verify | | | the | | | patien | | | t's | | | identi | | | ficati | | | on and | | | | | | planne | | | d | | | proced | | | ure. | | | Please | | | refer | | | to | | | the | | | comput | | | er log | | | entry | | | form | | | for | | | precis | | | e | | | detail | | | s. | | | The | | | patien | | | t's | | | Right | | | groin | | | and | | | Right | | | wrist | | | was | | | then | | | preppe | | | d and | | | draped | | | in | | | the | | | usual | | | steril | | | e | | | fashio | | | n, and | | | | | | anesth | | | etized | | | with | | | 1% | | | lidoca | | | ine. A | | | 6F | | | sheath | | | was | | | insert | | | ed in | | | the | | | RRA. | | | Alvares | | | ry | | | angiog | | | abby | | | was | | | perfor | | | med in | | | | | | multip | | | le | | | views | | | using | | | 5 | | | Bulgarian | | | TIG | | | and JR | | | | | | diagno | | | stic | | | cathet | | | ers. | | | After | | | review | | | of | | | the | | | digita | | | l | | | images | | | , I | | | electe | | | d to | | | procee | | | d with | | | the | | | alvares | | | ry | | | interv | | | ention | | | . The | | | | | | patien | | | t's | | | antico | | | agulat | | | ion | | | regime | | | n | | | consis | | | macho of | | | | | | Angiom | | | ax and | | | | | | Integr | | | arnulfo. | | | A | | | Ikari- | | | 4.0 | | | guide | | | was | | | used | | | to | | | cannul | | | ate | | | the LM | | | | | | vessel | | | . The | | | | | | lesion | | | was | | | crosse | | | d with | | | the | | | PT | | | Choice | | | | | | wires. | | | It | | | was | | | predil | | | ated | | | with | | | 2.5X15 | | | mm | | | balloo | | | n for | | | the | | | distal | | | LM to | | | | | | restor | | | e | | | blood | | | flow. | | | IABP | | | was | | | placed | | | in | | | the | | | RFA. A | | | | | | venous | | | | | | sheath | | | was | | | placed | | | in | | | the | | | RFV. | | | The | | | lesion | | | was | | | then | | | treate | | | d with | | | a | | | 3.0X23 | | | mm | | | Xience | | | ANY | | | stent | | | deploy | | | ed at | | | 14 john | | | in | | | the | | | distal | | | LM | | | and | | | proxim | | | al | | | LAD. | | | The | | | LCx-90 | | | % | | | lesion | | | was | | | then | | | crosse | | | d with | | | a new | | | | | | 2.0X12 | | | mm | | | balloo | | | n and | | | pre-di | | | lated; | | | | | | follow | | | ed by | | | deploy | | | ment | | | of | | | 2.5X18 | | | mm ANY | | | at 14 | | | john. | | | | | | Estima | | | macho | | | blood | | | loss | | | was: | | | 50cc. | | | Fluro | | | Time: | | | 16 | | | Total | | | Radiat | | | ion | | | Area | | | Dose: | | | 2963 | | | GYCM2 | | | | | | Contra | | | st: | | | 200 | | | mls of | | | | | | Omnipa | | | que | | | 350COM | | | PLICAT | | | IONS: | | | the | | | initia | | | l plan | | | was | | | to | | | restor | | | e flow | | | in | | | the | | | LAD | | | and | | | emerge | | | ntly | | | transf | | | er the | | | | | | patien | | | t to | | | anothe | | | r | | | facili | | | ty for | | | CABG | | | since | | | he had | | | | | | distal | | | LM | | | and | | | surgic | | | al | | | diseas | | | e. | | | Unfort | | | unatel | | | y, we | | | were | | | not | | | able | | | to | | | transf | | | er the | | | | | | patien | | | t | | | expedi | | | ently | | | ([facility] | | | c did | | | not | | | have | | | beds; | | | [facility] | | | | | | surgeo | | | ns | | | were | | | busy | | | with | | | their | | | own | | | compli | | | cation | | | s; | | | finall | | | y [facility] | | | | | | accept | | | ed the | | | | | | patien | | | t but | | | then | | | transp | | | ort | | | became | | | an | | | issue | | | regard | | | ing | | | fixed | | | wing | | | travel | | | and | | | lack | | | of | | | availa | | | bility | | | of | | | IABP | | | RN's) | | | In the | | | meant | | | time, | | | the | | | distal | | | LM | | | totall | | | y | | | occlud | | | ed, | | | requir | | | ing | | | double | | | | | | wiring | | | of | | | the | | | LAD | | | and | | | LCx | | | lesion | | | s, | | | multip | | | le | | | balloo | | | n | | | inflat | | | ions | | | of the | | | LM to | | | | | | restor | | | e | | | flow, | | | use of | | | | | | multip | | | le | | | presso | | | rs and | | | | | | intuba | | | tion | | | (which | | | was a | | | | | | prolon | | | ged | | | proced | | | ure | | | given | | | the | | | patien | | | t's | | | thick | | | neck | | | and | | | cardio | | | genic | | | shock) | | | . | | | Defibr | | | illati | | | on and | | | use | | | of | | | multip | | | le | | | presso | | | rs was | | | | | | contin | | | ued. | | | And | | | once | | | it was | | | | | | determ | | | ined | | | that | | | he was | | | no | | | longer | | | a | | | candid | | | ate | | | for | | | surgic | | | al | | | revasc | | | ulariz | | | ation | | | emerge | | | ntly, | | | the | | | distal | | | LM | | | prox | | | LAD | | | were | | | stente | | | d and | | | so was | | | the | | | ostial | | | LCx. | | | He was | | | then | | | transp | | | orted | | | to | | | [facility] | | | in | | | very | | | seriou | | | s | | | condit | | | ion on | | | | | | multip | | | le | | | drips | | | and | | | IAPB-- | | | -discu | | | ssion | | | with | | | the | | | family | | | was | | | patricia | | | d to | | | regard | | | ing | | | his | | | poor | | | medica | | | l | | | condit | | | ion | | | and | | | the | | | fact | | | that | | | he | | | would | | | probab | | | ly not | | | going | | | to | | | surviv | | | e this | | | | | | hospit | | | alizat | | | ion.FI | | | NDINGS | | | :Hemod | | | ynamic | | | s:Init | | | ial | | | pressu | | | re was | | | | | | 110/60 | | | ---but | | | | | | overal | | | l see | | | compli | | | cation | | | s | | | listed | | | | | | aboveL | | | eft | | | main | | | alvares | | | ry | | | artery | | | : 90% | | | | | | distal | | | | | | stenos | | | is | | | with | | | dissec | | | tion | | | extend | | | ing | | | into | | | the | | | LAD.Le | | | ft | | | anteri | | | or | | | descen | | | ding | | | alvares | | | ry | | | artery | | | : | | | 100% | | | occlus | | | ionCir | | | cumfle | | | x | | | alvares | | | ry | | | artery | | | : 90% | | | | | | ostial | | | | | | stenos | | | is | | | with | | | the LM | | | | | | dissec | | | tion | | | extend | | | ing | | | into | | | the | | | LCx.Ri | | | ght | | | alvares | | | ry | | | artery | | | : | | | Diffus | | | e | | | lumina | | | l | | | irregu | | | lariti | | | es of | | | a | | | domina | | | nt RCA | | | with | | | no R | | | to L | | | collat | | | erals. | | | Post | | | interv | | | ention | | | : 0% | | | stenos | | | is of | | | the | | | distal | | | LM, | | | ostial | | | LAD | | | and | | | ostial | | | | | | LCx.CO | | | NCLUSI | | | ONS:1. | | | | | | Succes | | | sful | | | PCI | | | with | | | placem | | | ent of | | | | | | 3.0X23 | | | stent | | | in | | | the | | | distal | | | LM | | | and | | | ostial | | | LAD | | | reduci | | | ng a | | | 100% | | | stenot | | | ic | | | lesion | | | to 0% | | | | | | residu | | | al | | | stenos | | | is.2. | | | | | | Succes | | | sful | | | PCI | | | with | | | placem | | | ent of | | | | | | 2.5X18 | | | stent | | | in | | | the | | | ostial | | | LCx | | | reduci | | | ng a | | | 90% | | | stenot | | | ic | | | lesion | | | to 0% | | | | | | residu | | | al | | | stenos | | | is.3. | | | | | | COMPLI | | | CATION | | | S: the | | | | | | initia | | | l plan | | | was | | | to | | | restor | | | e flow | | | in | | | the | | | LAD | | | and | | | emerge | | | ntly | | | transf | | | er the | | | | | | patien | | | t to | | | anothe | | | r | | | facili | | | ty for | | | CABG | | | since | | | he had | | | | | | distal | | | LM | | | and | | | surgic | | | al | | | diseas | | | e. | | | Unfort | | | unatel | | | y, we | | | were | | | not | | | able | | | to | | | transf | | | er the | | | | | | patien | | | t | | | expedi | | | ently | | | ([facility] | | | c did | | | not | | | have | | | beds; | | | [facility] | | | | | | surgeo | | | ns | | | were | | | busy | | | with | | | their | | | own | | | compli | | | cation | | | s; | | | finall | | | y [facility] | | | | | | accept | | | ed the | | | | | | patien | | | t but | | | then | | | transp | | | ort | | | became | | | an | | | issue | | | regard | | | ing | | | fixed | | | wing | | | travel | | | and | | | lack | | | of | | | availa | | | bility | | | of | | | [facility] | | | RN's) | | | In the | | | meant | | | time, | | | the | | | distal | | | LM | | | totall | | | y | | | occlud | | | ed, | | | requir | | | ing | | | double | | | | | | wiring | | | of | | | the | | | LAD | | | and | | | LCx | | | lesion | | | s, | | | multip | | | le | | | balloo | | | n | | | inflat | | | ions | | | of the | | | LM to | | | | | | restor | | | e | | | flow, | | | use of | | | | | | multip | | | le | | | presso | | | rs and | | | | | | intuba | | | tion | | | (which | | | was a | | | | | | prolon | | | ged | | | proced | | | ure | | | given | | | the | | | patien | | | t's | | | thick | | | neck | | | and | | | cardio | | | genic | | | shock) | | | . | | | Defibr | | | illati | | | on and | | | use | | | of | | | multip | | | le | | | presso | | | rs was | | | | | | contin | | | ued. | | | And | | | once | | | it was | | | | | | determ | | | ined | | | that | | | he was | | | no | | | longer | | | a | | | candid | | | ate | | | for | | | surgic | | | al | | | revasc | | | ulariz | | | ation | | | emerge | | | ntly, | | | the | | | distal | | | LM | | | prox | | | LAD | | | were | | | stente | | | d and | | | so was | | | the | | | ostial | | | LCx. | | | He was | | | then | | | transp | | | orted | | | to | | | [facility] | | | in | | | very | | | seriou | | | s | | | condit | | | ion on | | | | | | multip | | | le | | | drips | | | and | | | [facility]-- | | | -discu | | | ssion | | | with | | | the | | | family | | | was | | | patricia | | | d to | | | regard | | | ing | | | his | | | poor | | | medica | | | l | | | condit | | | ion | | | and | | | the | | | fact | | | that | | | he | | | would | | | probab | | | ly not | | | going | | | to | | | surviv | | | e this | | | | | | hospit | | | alizat | | | ion.Im | | | ran | | | [facility] | | | , | | | MDProv | | | idence | | | [facility] | | | [facility] | | | [facility] | | | l | | | Center | | | DATE/T | | | ANDREI: | | | 03/15/20 | | | 17 | | | 10:057 | | | / | | | 7 | | | 10:05 | +---+--------+ + +--------+ +---+ + | INTUBATION | Routin | 03/15/2017 | | Results for this | | | e | 9:23 AM | | procedure are in the | | | | PDT | | results section. | + +--------+ +---+ + | IMAGING REPORT - | | 03/15/2017 | | Results for this | | EXTERNAL SCAN | | 12:00 AM | | procedure are in the | | | | PDT | | results section. | + +--------+ +---+ + | LABS - EXTERNAL SCAN | | 03/15/2017 | | Results for this | | | | 12:00 AM | | procedure are in the | | | | PDT | | results section. | + +--------+ +---+ + | ECG - EXTERNAL SCAN | | 03/15/2017 | | Results for this | | | | 12:00 AM | | procedure are in the | | | | PDT | | results section. | + +--------+ +---+ + documented in this encounter Results INTUBATION (03/15/2017 9:23 AM PDT) + + + | Narrative | Performed At | + + + | Ron Hawkins MD 03/15/2017 9:23 Intubation | | | Date/Time: 03/15/2017 9:15 Performed by: RON HAWKINS | | | Authorized by: MONSE MAC Consent: The procedure was performed in | | | an emergent situation. Verbal consent not obtained. Indications: | | | respiratory distress and respiratory failure Intubation method: | | | video-assisted Patient status: sedated Preoxygenation: nonrebreather | | | mask, BVM and SINAN/LMA Sedatives: etomidate Paralytic: | | | succinylcholine Laryngoscope size: Alvarado 4 Tube size: 7.0 mm Tube | | | type: cuffed Number of attempts: 3 Ventilation between attempts: | | | IMLA/LMA Cricoid pressure: yes Cords visualized: yes Post-procedure | | | assessment: chest rise, ETCO2 monitor and CO2 detector Breath | | | sounds: equal Cuff inflated: yes ETT to lip: 22 cm Tube secured | | | with: ETT gonzalez Chest x-ray findings: endotracheal tube in | | | appropriate position | | + + + LABS - EXTERNAL SCAN (03/15/2017 12:00 AM PDT) + + + | Narrative | Performed At | + + + | Ordered by an | | | unspecified provider. | | + + + IMAGING REPORT - EXTERNAL SCAN (03/15/2017 12:00 AM PDT) + + + | Narrative | Performed At | + + + | Ordered by an | | | unspecified provider. | | + + + ECG - EXTERNAL SCAN (03/15/2017 12:00 AM PDT) + + + | [...] | | | + +--------+ +--------+------+------+ | aspirin chewable tablet ONCE | Given | 03/15/20 | 324 mg | | | | PRN, Starting Warne 03/15/17 at 0940, | | 17 9:40 | | | | | Intra-op | | AM PDT | | | | + +--------+ +--------+------+------+ +---+---+ | | | +---+---+ + +---------+ + +-------+---+ | bivalirudin (ANGIOMAX) 250 mg | New Bag | 03/15/20 | 1.75 | 39.7 | | | in 50 ml NS infusion CONTINUOUS | | 17 6:59 | mg/kg/hr | mL/hr | | | PRN, Starting Warne 03/15/17 at 0607, | | AM PDT | | | | | Intra-op | | | | | | + +---------+ + +-------+---+ +---------+ + +-------+---+ | New Bag | 03/15/20 | 1.75 | 39.7 | | | | 17 6:07 | mg/kg/hr | mL/hr | | | | AM PDT | | | | +---------+ + +-------+---+ +---+---+ | | | +---+---+ + +-------+ + +---+---+ | bivalirudin (ANGIOMAX) 5 mg/ml | Given | 03/15/20 | 85.05 mg | | | | in NS bolus bolus ONCE PRN, | | 17 6:02 | | | | | Starting Warne 03/15/17 at 0602, | | AM PDT | | | | | Intra-op | | | | | | + +-------+ + +---+---+ +---+---+ | | | +---+---+ + +-------+ +--------+---+---+ | clopidogrel (PLAVIX) tablet | Given | 03/15/20 | 600 mg | | | | ONCE PRN, Starting Warne 03/15/17 at | | 17 9:40 | | | | | 0940, Intra-op | | AM PDT | | | | + +-------+ +--------+---+---+ +---+---+ | | | +---+---+ + + + + +-------+---+ | DOPamine in dextrose 1,600 | Rate/Dos | 03/15/20 | 5 | 21.3 | | | mcg/mL infusion CONTINUOUS PRN, | e Change | 17 7:05 | mcg/kg/m | mL/hr | | | Starting 03/15/17 at 0620, | | AM PDT | in | | | | Intra-op | | | | | | + + + + +-------+---+ + + + +-------+---+ | Rate/Dose Change | 03/15/20 | 10 | 42.5 | | | | 17 6:39 | mcg/kg/m | mL/hr | | | | AM PDT | in | | | + + + +-------+---+ | New Bag | 03/15/20 | 5 | 21.3 | | | | 17 6:20 | mcg/kg/m | mL/hr | | | | AM PDT | in | | | + + + +-------+---+ +---+---+ | | | +---+---+ + +-------+ +--------+---+---+ | EPINEPHrine 0.1 mg/mL syringe | Given | 03/15/20 | 0.5 mg | | | | ONCE XANDER, Starting 03/15/17 at | | 17 9:14 | | | | | 0751, Intra-op | | AM PDT | | | | + +-------+ +--------+---+---+ +-------+ +--------+---+---+ | Given | 03/15/20 | 0.5 mg | | | | | 17 8:22 | | | | | | AM PDT | | | | +-------+ +--------+---+---+ | Given | 03/15/20 | 0.5 mg | | | | | 17 7:56 | | | | | | AM PDT | | | | +-------+ +--------+---+---+ +---+---+ | | | +---+---+ + +-------+ +---------+---+---+ | eptifibatide (INTEGRILIN) 2 | Given | 03/15/20 | 20,412 | | | | mg/mL injection ONCE PRN, | | 17 7:35 | mcg | | | | Starting 03/15/17 at 0732, | | AM PDT | | | | | Intra-op | | | | | | + +-------+ +---------+---+---+ +-------+ +---------+---+---+ | Given | 03/15/20 | 20,412 | | | | | 17 7:32 | mcg | | | | | AM PDT | | | | +-------+ +---------+---+---+ +---+---+ | | | +---+---+ + +---------+ + +-------+---+ | eptifibatide (INTEGRILIN) 750 | New Bag | 03/15/20 | 2 | 18.1 | | | mcg/mL infusion CONTINUOUS PRN, | | 17 7:35 | mcg/kg/m | mL/hr | | | Starting Warne 03/15/17 at 0735, | | AM PDT | in | | | | Intra-op | | | | | | + +---------+ + +-------+---+ +---+---+ | | | +---+---+ + +-------+ +-------+---+---+ | etomidate (AMIDATE) injection | Given | 03/15/20 | 20 mg | | | | ONCE PRN, Starting Warne 03/15/17 at | | 17 7:20 | | | | | 0720, Intra-op | | AM PDT | | | | + +-------+ +-------+---+---+ +---+---+ | | | +---+---+ + +-------+ +--------+---+---+ | fentaNYL (PF) injection ONCE | Given | 03/15/20 | 50 mcg | | | | PRN, Starting Warne 03/15/17 at 0547, | | 17 7:05 | | | | | Intra-op | | AM PDT | | | | + +-------+ +--------+---+---+ +-------+ +--------+---+---+ | Given | 03/15/20 | 50 mcg | | | | | 17 6:55 | | | | | | AM PDT | | | | +-------+ +--------+---+---+ | Given | 03/15/20 | 25 mcg | | | | | 17 6:52 | | | | | | AM PDT | | | | +-------+ +--------+---+---+ +---+---+ | | | +---+---+ + +-------+ +--------+---+---+ | fentaNYL (PF) injection ONCE | Given | 03/15/20 | 25 mcg | | | | PRN, Starting 03/15/17 at 0735, | | 17 7:35 | | | | | Intra-op | | AM PDT | | | | + +-------+ +--------+---+---+ +---+---+ | | | +---+---+ + +-------+ +---------+---+---+ | iohexol (OMNIPAQUE 350) 350 | Given | 03/15/20 | 205 mLs | | | | mg/mL injection ONCE PRN, | | 17 5:55 | | | | | Starting 03/15/17 at 0555, | | AM PDT | | | | | Intra-op | | | | | | + +-------+ +---------+---+---+ +---+---+ | | | +---+---+ + +-------+ +---------+---+---+ | lidocaine (PF) 2% injection | Given | 03/15/20 | 2.5 mLs | | | | ONCE PRN, Starting 03/15/17 at | | 17 7:35 | | | | | 0735, Intra-op | | AM PDT | | | | + +-------+ +---------+---+---+ +---+---+ | | | +---+---+ + +-------+ +------+---+ + | lidocaine 1% injection ONCE | Given | 03/15/20 | 1 mL | | Surgical | | PRN, Starting 03/15/17 at 0550, | | 17 5:50 | | | Site | | Intra-op | | AM PDT | | | | + +-------+ +------+---+ + +---+---+ | | | +---+---+ + +-------+ +--------+---+---+ | midazolam (VERSED) 1 mg/mL | Given | 03/15/20 | 0.5 mg | | | | injection ONCE PRN, Starting Sun | | 17 7:10 | | | | | 03/15/17 at 0547, Intra-op | | AM PDT | | | | + +-------+ +--------+---+---+ +-------+ +--------+---+---+ | Given | 03/15/20 | 0.5 mg | | | | | 17 6:09 | | | | | | AM PDT | | | | +-------+ +--------+---+---+ | Given | 03/15/20 | 0.5 mg | | | | | 17 5:58 | | | | | | AM PDT | | | | +-------+ +--------+---+---+ +---+---+ | | | +---+---+ + +-------+ +---+---+---+ | nitroglycerin in dextrose 200 | Given | 03/15/20 | | | | | mcg, verapamil 2.5 mg in heparin | | 17 5:55 | | | | | 2,000 Units CVL mixture ONCE | | AM PDT | | | | | PRN, Starting Warne 03/15/17 at 0555, | | | | | | | Intra-op | | | | | | + +-------+ +---+---+---+ +---+---+ | | | +---+---+ + +-------+ +------+---+---+ | ondansetron (ZOFRAN) injection | Given | 03/15/20 | 4 mg | | | | ONCE PRN, Starting Warne 03/15/17 at | | 17 7:04 | | | | | 0632, Intra-op | | AM PDT | | | | + +-------+ +------+---+---+ +-------+ +------+---+---+ | Given | 03/15/20 | 8 mg | | | | | 17 6:32 | | | | | | AM PDT | | | | +-------+ +------+---+---+ +---+---+ | | | +---+---+ + +-------+ +--------+---+---+ | propofol (DIPRIVAN) injection | Given | 03/15/20 | 100 mg | | | | ONCE PRN, Starting 03/15/17 at | | 17 8:00 | | | | | 0800, Intra-op | | AM PDT | | | | + +-------+ +--------+---+---+ +---+---+ | | | +---+---+ + +---------+ + +-------+---+ | propofol infusion (DIPRIVAN) 10 | New Bag | 03/15/20 | 15 | 10.2 | | | mg/mL infusion CONTINUOUS PRN, | | 17 8:00 | mcg/kg/m | mL/hr | | | Starting 03/15/17 at 0800, | | AM PDT | in | | | | Intra-op | | | | | | + +---------+ + +-------+---+ +---+---+ | | | +---+---+ + +-------+ +--------+---+---+ | sodium bicarbonate 1 mEq/mL | Given | 03/15/20 | 50 mEq | | | | injection Administer over 1 | | 17 7:31 | | | | | Minutes, ONCE PRN, Starting Sun | | AM PDT | | | | | 03/15/17 at 0731, Intra-op | | | | | | + +-------+ +--------+---+---+ +---+---+ | | | +---+---+ + +-------+ +--------+---+---+ | sodium bicarbonate 1 mEq/mL | Given | 03/15/20 | 50 mEq | | | | injection Administer over 1 | | 17 8:45 | | | | | Minutes, ONCE PRN, Starting Sun | | AM PDT | | | | | 03/15/17 at 0758, Intra-op | | | | | | + +-------+ +--------+---+---+ +-------+ +--------+---+---+ | Given | 03/15/20 | 50 mEq | | | | | 17 8:15 | | | | | | AM PDT | | | | +-------+ +--------+---+---+ | Given | 03/15/20 | 50 mEq | | | | | 17 8:00 | | | | | | AM PDT | | | | +-------+ +--------+---+---+ +---+---+ | | | +---+---+ + +-------+ +-------+---+---+ | succinylcholine (ANECTINE) 200 | Given | 03/15/20 | 50 mg | | | | mg/10 mL injection ONCE PRN, | | 17 8:45 | | | | | Starting 03/15/17 at 0720, | | AM PDT | | | | | Intra-op | | | | | | + +-------+ +-------+---+---+ +-------+ +--------+---+---+ | Given | 03/15/20 | 120 mg | | | | | 17 8:15 | | | | | | AM PDT | | | | +-------+ +--------+---+---+ | Given | 03/15/20 | 120 mg | | | | | 17 7:20 | | | | | | AM PDT | | | | +-------+ +--------+---+---+ +---+---+ | | | +---+---+ + +-------+ +---------+---+---+ | vecuronium (NORCURON) injection | Given | 03/15/20 | 11.3 mg | | | | ONCE PRN, Starting 03/15/17 | | 17 9:41 | | | | | at 0941, Intra-op | | AM PDT | | | | + +-------+ +---------+---+---+ +---+---+ | | | +---+---+ + +-------+ +---------+---+---+ | vecuronium (NORCURON) injection | Given | 03/15/20 | 11.3 mg | | | | ONCE PRN, Starting 03/15/17 | | 17 8:49 | | | | | at 0849, Intra-op | | AM PDT | | | | + +-------+ +---------+---+---+ +---+---+ | | | +---+---+ documented in this encounter
--- OUTSIDE RECORDS SUMMARY | ~2020-03-04 | XMS | Encounter Summary ---
Demographics + + + | Address | [address] | | | [place] [address] | + + + | Home Phone | | + + + | Preferred Language | Unknown | + + + | Marital Status | | + + + | Amish Affiliation | Unknown | + + + | Race | Unknown | + + + | Ethnic Group | Unknown | + + + Author + + + | Author | [facility] | | | and [place] | + + + | Organization | [facility] | | | and [place] | + + + | Address | Unknown | + + + | Phone | Unavailable | + + + Support + + + + + | Name | Relationship | Address | Phone | + + + + + | [place] Will | ECON | [place], [place] | | | | | [address] | | + + + + + Care Team Providers + +------+ + | Care Saw Superintendent Name | Role | Phone | + [...] Description | +--------+---------+ + + + | 05/19/ | Surgery | [facility] | Khurram Canas T, | [facility] | | 2018 | | [facility] | MD [address] | | | | | INTRA OP [address] | [place] [address] | | | | | Ave [place], [place] | [phone] | | | | | [address] | | | | | | [phone] | | | +--------+---------+ + + + [...] + + + | Blood Pressure | 112/66 | 05/19/2018 5:27 PM | | | | | PDT | | + + + + + | Pulse | 63 | 05/19/2018 5:27 PM | | | | | PDT | | + + + + + | Temperature | 36.4 C (97.6 F) | 05/19/2018 5:27 PM | | | | | PDT | | + + + + + | Respiratory Rate | 15 | 05/19/2018 5:27 PM | | | | | PDT | | + + + + + | Oxygen Saturation | 98% | 05/19/2018 5:27 PM | | | | | PDT | | + + + + + | Inhaled Oxygen | - | - | | | Concentration | | | | + + + + + | Weight | 95.2 kg (209 lb 14.1 | 05/18/2018 7:49 AM | | | | oz) | [...] diffe rent from the original. DISCHARGE SUMMARY [facility] PATIENT NAME/: Ron Will, (1955) DATE OF ADMISSION: 05/13/2018 DATE [...] and ischemi c cardiomyopathy. Previously hospitalized at [facility] in March 2017 with thrombosed left main [...] left anterior descending. Patient subsequently admitted to [facility] in 04/2018 with symptoms of congestive heart [...] aspirin indefinitel y. Unfortunately patient lives in [place], and his insurance is not contracted with [facility] or heart [facility]. He will follow-up with Dr. Kay in [place]. He was scheduled with a nurse practitioner in the office for next Thursday. She was discharged home in stable condition on the morning of May 21. He understands he can call our office with any questions or concerns. His prescriptions were sent 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 JAVA-D (AICD) [employer] 10/16/17 [facility] 10/19/2017 Yes Implantable defibrillator reprogramming/check 10/19/2017 Unknown H/O atrial flutter 10/19/2017 Unknown Acute on chronic systolic congestive heart failure 10/17/2017 Yes Ischemic cardiomyopathy 05/26/2017 Yes Coronary artery disease involving umatilla tribe coronary artery of umatilla tribe heart without angina pectoris 04/06/2017 Yes Acute anterior wall VT 04/03/2017 Unknown Generalized pain 03/24/2017 Unknown Abdominal [...] cardiomyopathy [I25.5 (ICD-10-CM)] 04/05/2018 10:14 - Sebastian, Color Card Maker Narrative Transthoracic Echocardiography Report (TTE) Demographics Patient Name MIKE RON Room Number J Patient Number [id number] Date of Study 04/02/2018 Visit Number [id number] Referring Physician NEMO AGUILAR Number Date of 1955 Arbitrator FRANNIE ISAACS RDCS Age 62 year(s) Interpreting NEMO AGUILAR Flash Developer RANDY VINCENT MD Gender Male Nurse Stress Airplane Pilot Photogrammetry Procedure Type of Study TTE procedure: ECHO [...] CORONARY CATH and INTERVENTION REPORT PATIENT NAME/: Ron Will, (1955) DATE OF SERVICE: 05/19/2018 PRIMARY FOXING PAINTER: Macho Arredondo MD ENGINE BUILDER: Khurram Canas MD PROCEDURES PERFORMED: Single-Vessel Coronary [...] SonoSite and a micro cath a 14 Maltese was eventually placed in the right femoral artery after 2 PerClose devices had been deployed. A pigtail was used to cross the aortic valve and left heart cath was done to assess LVEDP. The device was then placed in e standard fashion and used for hemodynamic [...] interval not displayed. Recent Labs Lab 05/21/18 03005/17/18 0348 BNP 260* 224* No results found [...] DAY IN THE EVENING aka: LIPITOR Cholecalciferol 84852 units Caps Take by mouth Once a [...] matzo crackers Avoid: Salted crackers, pretzels, popcorn; monegasque toast, pancakes, muffins Desserts Ok: Ice cream, [...] sauce, regular gravy, regular salad dressin g [employer]. [address] [place] [address]. All righ ts reserved. This information is [...] in the hands, feet, or ankles Confusion [id number] [employer]. [address] [place] [address]. All righ ts reserved. This information is not intended as a substitute for professional medical care. Always follow your healthcare professional's instructions. Discharge References/Attachments Heart Failure, Discharge Instructions for (Urdu) ADARSH Stevens [address] [facility] [id number] On 05/26/2018 check in at 230pm. This COMPLIANCE CONSULTANT works with Dr. Kay. Time spent on discharge planning: less than 30 minutes Thank you for allowing [facility] to be involved in the care of [...] to discharge and I was in direct [id number]-aosh conversation with this pat ient on several occasions prior to his discharge that day regarding his follow-up in [facility]. EXAM: Cardiovascular - RRR, no murmur heard Respiratory - CTA bilaterally Lymphatic/Extremities - no significant edema Sheath site - no hematoma IMP/PLAN: Complicated 62-year-old male with ischemic cardiomyopathy transferred from [facility] where he had presented with acute heart failure, angiogram demonstrated high-grade 95% ostialcircumflex stenosis, patent RCA,patent left main and LAD. He was transferred to [facility] for consideration of high-risk revascularization. He was discussed at cardiology onference where the consensus opinion was that [...] would not cov er any follow-up at [place] or with [facility] and is referred back to his core driller helper in [place] which is Dr. Kay. He did see 's nurse practitioner five days after discharge. Over 60 minutes spent in coordinating his discharge and arranging his discharge follow-up. documented in this encounter Discharge Instructions Instructions Janel Hester ARNP - 05/17/2018Formatting of this note might be [...] matzo crackers Avoid: Salted crackers, pretzels, popcorn; monegasque toast, pancakes, muffins Desserts Ok: Ice cream, [...] sauce, regular gravy, regular salad dressin g [phone] [employer]. [address] [place] [address]. All righ ts reserved. This information is [...] in the hands, feet, or ankles Confusion [id number] [employer]. [address] [place] [address]. All righ ts reserved. This information is not intended as a substitute for professional medical care. Always follow your healthcare professional's instructions. AttachmentsThe following attachments cannot be sent through Care Everywhere.Heart Failure, Discharge Instructions for (Urdu)documented in this encounter Medications at Time of [...] 0 | | | | (VITAMIN D-3) 47713 | mouth Once a week. | | [...] on 05/20/2018 (Hospital Day: 8) PATIENT NAME: Ron Will DATE OF : 1955 MED RECORD: [id number] SUBJECTIVE Mr. John was seen today regarding [...] LDL No results for input(s): PHART, PO2ART, IKE6QAC, O5LDGLJS, BEART in the last 168 hours. DIAGNOSTIC STUDIES: Available data and images were reviewed personally. Significant results and findings are a ddressed here or in the Assessment and Plan. nurse monitoring shows: Sinus rhythm with no significant arrhythmia. ASSESSMENT/PLAN Patient Active Hospital Problem List: Acute on chronic systolic congestive heart failure (10/17/2017) POA: Yes Assessment: symptomatically improved post PCI. Diuretics held today for low filling press ure Plan: advance his medications for cardiomyopathy as tolerated Coronary artery disease involving umatilla tribe coronary artery of umatilla tribe heart without angina pe ctoris (04/06/2017) POA: Yes Assessment: as described, lew post successful PCI Plan: on aspirin and Plavix Ischemic cardiomyopathy (05/26/2017) POA: Yes Assessment: continue current medical management will add spironolactone Plan: as above Please call with any questions [facility] Carli León MD - 05/20/2018 8:49 PM PDT PATIENT NAME: Ron Will : 1955: AGE: 62 y.o. PRIMARY CARE: Jeet King MD REFERRING: Dr Canas, Dr Arredondo, Dr Cassandra Meade MD [facility] Inpatient HF consult Date of Service: 05/20/2018 IMPRESSION & PLAN In brief, this 62y old male with remote tobacco use, pre-DM, HTN, ischemic CMY, HFREF (AHA stage C, NYHA III), and MVCAD w/prior STEMI c/b VF arrest and cardiogenic shock wasadmitted to [facility] for ADHF and despite excellent diuresis, had [...] have any questions or concerns, please call [phone]. Carli Meade MD MPH [facility] SUBJECTIVE Feeling better today after a [...] Daily PHYSICAL EXAM Tele: SR, no ectopy [place]: n/a BP 116/68 | Pulse 66 | [...] me. Signed by: Carli Meade MD MPH [facility] 05/20/2018, 20:49 iw ek, Devon Boyle MD - 05/20/2018 7:42 AM PDTAfter discussion [...] so he doesn't get "lost" down in [facility]. No plan for surgical intervention (other than potential LVAD) so I will sign off. Electronically signed by: Devon Trujillo M.D. CardioThoracic [facility] 05/20/2018, 7:42 Carli León MD - 05/19/2018 8:55 AM PDT PATIENT NAME: Ron Will : 1955: AGE: 62 y.o. PRIMARY CARE: Jeet King MD REFERRING: Dr Canas, Dr Arredondo, Dr Cassandra Meade MD [facility] Inpatient HF consult Date of Service: [...] ischemic CMY. He was initially admitted to [facility] for ADHF and appropriately diure sed. Due [...] Clinic It was a pleasure to see Ron Will at the request of Dr Canas. Thank you for all owing us to participate in this patient's care. My impressions and recommendations have bee n discussed with Dr Canas. The advanced heart failure service will continue to follow along. Should you have any questions or concerns, please call [phone]. Carli Meade MD MPH [facility] SUBJECTIVE Good mood, happy to hear [...] Oral Daily sodium chloride 0.45% 1,000 mL (05/18/18 591) PHYSICAL EXAM Tele: SR, no ectopy [place]: n/a BP 103/54 | Pulse 76 | [...] me. Signed by: Carli Meade MD [facility] 05/19/2018, 20:53 ve Macho szymanski MD - 05/19/2018 8:26 AM PDTFormatting of this note might be different from th e original. CARDIOLOGY DAILY PROGRESS NOTE Seen by Macho Arredondo MD on 05/19/2018 (Hospital Day: 7) PATIENT NAME: Ron Will DATE OF : 1955 MED RECORD: [id number] SUBJECTIVE Mr. John was seen today regarding his Heart failure, [...] SYSTEMS: Intake/Output Summary (Last 24 hours) at 05/19/18826 Last data filed at 05/19/18 0643 Gross [...] Daily IV: sodium chloride 0.45% 1,000 mL (05/18/187) PRN: HYDROcodone-acetaminophen, melatonin, nitroglycerin, traMADol LAB: Recent [...] LDL No results for input(s): PHART, PO2ART, ODA1CTC, I1DHFVNZ, BEART in the last 168 hours. DIAGNOSTIC STUDIES: Available data and images were reviewed personally. Significant results and findings are a ddressed here or in the Assessment and Plan. nurse monitoring shows: Sinus rhythm with no significant arrhythmia. ASSESSMENT/PLAN Patient Active Hospital Problem List: Coronary artery disease involving umatilla tribe coronary artery of umatilla tribe heart without angina pe ctoris (04/06/2017) POA: [...] change Please call with any questions [facility] Karon Abbott LI ASPHALT SMOOTHER - 05/19/2018 8:02 AM PDTRT referral received to evaluate for home health for COPD pt fo r high risk for readmission: 62 yo male lives at home with in [facility]. Insurance is [facility] fypio Plan Medicaid HMO. Social work to follow as needed following Complex Cardiac Team conference today. Electro nically signed by KAREN Masters at 05/19/2018 8:02 AM Carli León MD - 8:50 PM PDT PATIENT NAME: Ron Will : 1955: AGE: 62 y.o. PRIMARY CARE: Jeet King MD REFERRING: Missael Meade MD [facility] Inpatient Consult Progress Note Date of [...] f LM -LCX and LM- LAD ([facility] 03/15/17) c/b anterior wall infarction and e jolanta ISRS of LM-LCX stent requiring PTCA again ([facility] Alvaro) earlier this year and now aga in [...] planning for PTCA Carli Meade MD MPH [facility] SUBJECTIVE No overnight events, note chest [...] contact me. Signed by: Carli Meade MD [facility] 05/18/2018, 20:50 arolyn De La Cruz R [...] on 05/18/2018 (Hospital Day: 6) PATIENT NAME: Ron Will DATE OF : 1955 MED RECORD: [id number] SUBJECTIVE Mr. Will was seen today regarding [...] LDL No results for input(s): PHART, PO2ART, GFW1ZCL, R5DTFDDV, BEART in the last 168 hours. DIAGNOSTIC STUDIES: Available data and images were reviewed personally. Significant results and findings are a ddressed here or in the Assessment and Plan. nurse monitoring shows: Normally functioning pacemaker. ASSESSMENT/PLAN 1. Chronic systolic HF: better compensated on higher dose of furosemide. 2. ICM: NYHA Class III. EF 25% per echo 05/01/2018 done at [facility] (down from 35% per echo 2017). He is currently on Entresto+metprolol succinate+noris for GDMT. 3. CAD: pt has prior hx of PCI LM and Cx 03/2017, and in 10/2017 had ANY ostial Cx and POBA L M/LAD. Most recent cath done at [facility] shows patent LAD and RCA, but he [...] 10pm Please call with any questions [facility] Associated attestation - Macho Arredondo MD - [...] volume overload on exam Carolyn De La Cruz, BARRON - 05/18/2018 9:31 AM PDTAssessed pt for [...] on 05/17/2018 (Hospital Day: 5) PATIENT NAME: Ron Will DATE OF : 1955 MED RECORD: [id number] SUBJECTIVE Mr. Will was seen today regarding [...] Labs Lab 05/17/18 0348 05/16/18 0608 05/15/18 08 NA 142 140 138 K 4.6 4.9 4.6 BUN 27* 23 24 CREA 1.89* 1.87* 1.79* EGFR 37* 37* 39* CALCIUM 8.7 8.6 8.9 GLU 103* 101* 131* Recent Labs Lab 05/17/18347 BNP 224* No results found for: CHOL, TRIG, HDL, LDL No results for input(s): PHART, PO2ART, YYC6HIU, M3GIHHDB, BEART in the last 168 hours. DIAGNOSTIC STUDIES: Available data and images were reviewed personally. Significant results and findings are a ddressed here or in the Assessment and Plan. nurse monitoring shows: V-Pacing 100% with rates 80-90. ASSESSMENT/PLAN [...] heart transplant team. Coronary artery disease involving umatilla tribe coronary artery of umatilla tribe heart without angina pec toris Assessment & Plan A: -Patient able to ambulate the halls without chest pain or discomfort. -Currently on Aspirin daily, and nitro as needed. P: -Plan for possible coronary revascularization after case is presented at heart team meeting . 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 A: -Patient ventricular paced 100% this morning. No arrhythmias on telemetry. P: -No acute therapy. Continue current therapy. COPD (chronic obstructive pulmonary disease) ([facility]) Assessment & Plan A: -Patient on room [...] medication regimen. Please call with any questions [facility] Associated attestation - Macho Arredondo MD - 05/17/2018 11:03 PM PDTFormatting of this no te might be different from the original. PHYSICIAN ADDENDUM I reviewed today's note by ADARSH Villar EXAM: Cardiovascular - RRR, no murmur heard Respiratory - CTA bilaterally Lymphatic/Extremities - no significant edema IMP/PLAN: 62-year-old male with severe ischemic cardiomyopathy and progressive heart failure symptom s transferred from [facility] for consideration of [...] Shift Summary Note Room # 608/608-01 Name: Ron Will [id number] Code Status: See prior hospital encounter Isolation: [...] Shift Summary Information: NSTEMI [address] planned to discuss case at [facility] to come up with a plan. Chronic neck pain well controlled with 10mg [place] q4. Indepen dent in room. VSS. Self imposed fluid restriction. Enjoyed discussion with chimney supervisor brick this AM. Additional 20mg lasix ordered and [...] done, but we need to define the assisted plan. Doubt that CABG indicated given ability to stent Circ. I told Mr. Will that it will be a few days to sort out. Electronically signed by: Devon Trujillo M.D. CardioThoracic Surgery [facility] 05/16/2018, 10:00 Khurram Hernandez MD - 05/16/2018 8:06 AM PDT CARDIOLOGY DAILY PROGRESS NOTE Seen by ADARSH Cevallos with Khurram Canas MD on 05/16/2018 (Hospital Day: 4) PATIENT NAME: Ron Will DATE OF : 1955 MED RECORD: [id number] SUBJECTIVE Mr. Will was seen today regarding [...] SYSTEMS: Intake/Output Summary (Last 24 hours) at 05/16/18805 Last data filed at 05/16/18 0317 Gross [...] LDL No results for input(s): PHART, PO2ART, FKV0ISZ, H4QVVHOR, BEART in the last 168 hours. DIAGNOSTIC STUDIES: Available data and images were reviewed personally. Significant results and findings are a ddressed here or in the Assessment and Plan. nurse monitoring shows: Normally functioning pacemaker. ASSESSMENT/PLAN 1. Chronic [...] EF 25% per echo 05/01/2018 done at [facility] (down from 35% per echo 2017). He is currently on Entresto+metprolol succinate for GDMT. Consider adding Eplerenone. Wait for advanced HF team recommendations. 3. CAD: pt has prior hx of PCI LM and Cx 03/2017, and in 10/2017 had NAY ostial Cx and POBA L M/LAD. Most recent cath done at [facility] shows patent LAD and RCA, but he [...] Please call with any questions [facility] PHYSICIAN ADDENDUM I reviewed today's note by ADARSH Quan EXAM: Cardiovascular - RRR, no murmur heard Respiratory - CTA bilaterally Lymphatic/Extremities - trace edema IMP/PLAN: Mild dyspnea - will increase lasix a little CMP - on metoprolol succ. and entresto, will add aldactone CAD continue ASA/Plavix, consider circ PCI depending on assisted CMP plan Await Advanced Heart Failure team plan - and anticipate heart team discussion on Wed AM hewKhurram MD - 05/15/2018 12:50 PM PDT CARDIOLOGY DAILY PROGRESS NOTE Seen by ADARSH Cevallos with Khurram Canas MD on 05/15/2018 (Hospital Day: 3) PATIENT NAME: Ron Will DATE OF : 1955 MED RECORD: [id number] SUBJECTIVE Mr. Will was seen today regarding [...] LDL No results for input(s): PHART, PO2ART, EBG3TZD, J3EUCIOM, BEART in the last 168 hours. DIAGNOSTIC STUDIES: Available data and images were reviewed personally. Significant results and findings are a ddressed here or in the Assessment and Plan. nurse monitoring shows: Normally functioning pacemaker. ASSESSMENT/PLAN 1. Chronic systolic HF: current compensated/euvolemic on low dose furosemide. 2. ICM: NYHA Class II-III. EF 25% per echo 05/01/2018 done at [facility] (down from 35% per echo 03/2018). He [...] L M/LAD. Most recent cath done at [facility] shows patent LAD and RCA, but he has a tight stenosis ostial Cx. CTS consulted re: CABG to Cx, but the pt is considered very high risk. Currently he is not having any angina. Dr Canas will review the cath films from [facility] and determine i f PCI to Cx [...] am Please call with any questions [facility] PHYSICIAN ADDENDUM I reviewed today's note by [...] it's a high risk PCI with sub-optimal assisted results. It might make sense to revasc the circ now if that will help bridge us to some advanced heart failure proc edure, but I don't know how much exterminator helper benefit there will be to just doing a circ PCI wi thout a longer term plan. Will await the heart failure team's input and will want to discus s him at heart team meeting this week. anna Chakraborty RN - 05/15/2018 12:42 PM PDT 6N / 6S Shift Summary Note Room # 608/608-01 Name: Ron Will [id number] Code Status: See prior hospital encounter Isolation: None Dx/Tx: NSTEMI 14 days ago Surgery/ Procedure: Surgery Consult Vitals: 05/15/18 0402 05/15/18 0604 05/15/18 0715 05/15/18 1125 BP: (!) 80/47 116/70 99/57 112/60 Pulse: 65 74 70 74 Resp: 16 16 16 16 Temp: 36.9 C (98.4 F) 35.8 [...] neck pain well controll ed with 10mg [place] q4. Independent in room. VSS. Self imposed fluid restriction. Showered to day. Neuro: A&O x4 Resp: WDL LDAs R PIV Cardiac: Pacemaker Active Gtts: Abnormal Labs/ Treatment: GI: WDL Active Orders Diet Diet fat and cholesterol modified; sodium restricted 3-4 gm; Effective Now : WDL Skin: (Incisions/ Wounds/ Edema) Pain: Chronic neck pain Activity: Up independently Therapy involved?: Danna Rich RN - 05/14/2018 4:19 PM PDT 6N / 6S Shift Summary Note Room # 608/608-01 Name: Ron Will [id number] Code Status: See prior hospital encounter Isolation: None Dx/Tx: NSTEMI 13 days ago Surgery/ Procedure: Surgery consult Vitals: 05/14/18 0429 05/14/18 0722 05/14/18 1200 05/14/18 1500 BP: 112/64 93/58 103/55 106/62 Pulse: 76 69 76 76 Resp: 16 Temp: 36.5 C (97.7 F) 35.3 C (95.6 F) 35.7 C (96.2 F) 35.9 C (96.6 F) TempSrc: Temporal Temporal Temporal Temporal SpO2: 97% 96% 96% 93% Weight: Height: Shift Summary Information: NSTEMI occurred 13 days ago. Surgery consult this shift, patient and frustrated with outcome of the consult. Chronic neck pain well controlled with 10m g [place] q4. Independent in room. VSS. Self imposed [...] Pain: Chronic neck pain controlled with 10mg [place] q4f Activity: Independent in room Therapy involved?: Janel Ventura ARNP - 05/14/2018 9:31 AM PDTFormatting of this note might be different from the devante chavez CARDIOLOGY DAILY PROGRESS NOTE Seen by ADARSH Yoon with Macho Arredondo MD on 05/14/2018 (Hospital Day: 2) PATIENT NAME: Ron Will DATE OF : 1955 MED RECORD: [id number] SUBJECTIVE Mr. Will was seen today regarding [...] LDL No results for input(s): PHART, PO2ART, RWI9UAX, G8LJKEPH, BEART in the last 168 hours. DIAGNOSTIC STUDIES: Available data and images were reviewed personally. Significant results and findings are a ddressed here or in the Assessment and Plan. nurse monitoring shows: Sinus rhythm with no significant arrhythmia. ASSESSMENT/PLAN COPD (chronic obstructive pulmonary disease) (HCC) Assessment & Plan Chronic condition. Chronic systolic congestive heart failure (HCC) Assessment & Plan No indication of acute volume overload. 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 Placen in 10/2017 at [facility]. No arhythmia noted on telemetry. Ischemic cardiomyopathy Assessment & Plan 03/2018: LVEF of 35%. 04/2018: LVEF of 25%. Done at [facility] while admitted for CHF-pulmonary edema, and shortness o f breath. GDMT:Fuorsomide, metoprolol XL, and Entresto. Creatinine stable 1.23-could consider spironolactone. NYHA II Coronary artery disease involving umatilla tribe coronary artery of umatilla tribe heart without angina pec toris Assessment & Plan 03/2017: transferred from [place] to [facility] with thrombosed left main artery treated with PCI of the left main into the LAD and subsequent PCI of left circumflex. Acute cardiogenic shock status post ECMO. Left atrial clot, previously on coumadin. 10/2017 when he was admitted at [facility] for pneumonia and unstable angina and underwent drug-el uting stent to ostial left circumflex and angioplasty of the distal left main with balloon i nflation extending into the left anterior descending. Plan: 1. Awaiting record from [facility]. 2. Surgical consult. Please call with any questions [facility] Associated attestation - Macho Arredondo MD - 05/14/2018 9:11 PM PDTFormatting of this no te might be different from the original. PHYSICIAN ADDENDUM I reviewed today's note by ADARSH Lomas EXAM: Cardiovascular - RRR, no murmur heard Respiratory - CTA bilaterally Lymphatic/Extremities - no significant edema IMP/PLAN: Patient seen by Dr. Trujillo today, more information available regarding his two weeks stay at [facility] He did have an angiogram late April at [facility], which is now available in [facility]. Per [...] was on Entresto before his admission to [facility], we will probably try to re-challenge him with losartan after increasing metoprolol succinate documented in this encounter H&P Notes Macho Arredondo MD - 05/13/2018 8:21 PM PDTFormatting of this note might be different fro m the original. CARDIOLOGY ADMISSION HISTORY AND PHYSICAL [facility] PATIENT NAME/: Ron Will, (1955) DATE OF ADMISSION: 05/13/2018 DATE OF SERVICE: 05/13/2018 ADMITTING PHYSICIAN: Macho Arredondo MD ADMITTING DIAGNOSIS/CHIEF COMPLAINT: Heart failure, ischemic cardio myopathy HCNW PRIMARY FOXING PAINTER: Has not previously been seen in our [...] March 2017 when he was transferred from [place] to [facility] with thrombosed left main artery treated with PCI of the left main into the LAD and subsequent PCI of left c ircumflex. His hospital course at that time was complicated by acute cardiogenic shock statu s post ECMO. Left atrial clot, previously on coumadin. He was again admitted at [facility] in 10/09 018 when he was admitted [...] succinate. Despite this, he was admitted a t [facility] several days ago, with recurrent [...] Information during his most recent hospitalization from [facility] is not readily available. Darshan reyes was [...] Medical History: Diagnosis Date Acute anterior wall VT (HCC) 04/03/2017 Angiography and stent 03/15/2017 successful [...] Cor Angio; Surgeon: Monse Ross MD; Location: [facility] CV LAB CARDIAC CATHERIZATION N/A 10/03/2017 Procedure: CV Cor Angio; Surgeon: Delmer Dai MD; Location: [facility] CV LAB ELBOW SURGERY Left GALLBLADDER SURGERY NASAL SEPTUM SURGERY UPPER GASTROINTESTINAL ENDOSCOPY N/A 10/05/2017 Procedure: EGD; Surgeon: Terry Weir MD; Location: [facility] MEDICAL PROCEDURE UNIT Medications: Prescriptions Prior to Admission Medication Sig Dispense Refill aspirin 81 MG tablet Take 81 mg by mouth Daily. atorvaSTATin (LIPITOR) 80 MG tablet TAKE ONE TABLET BY MOUTH EVERY DAY IN THE EVENING 3 0 tablet 5 Cholecalciferol (VITAMIN D-3) 85550 units CAPS Take by mouth Once a [...] Atrial pacing Echocardiogram: May 01, 2018 from [facility] 1. Overall left ventricular systolic function is [...] Coronary angiogram from October 03, 2017 from [facility] in [place] HEMODYNAMICS: LEFT HEART: Left ventricular end diastolic [...] 5. On-ST segment elevation myocardial infarction at [facility] PLAN: 1. Currently chest pain free 2. Currently he is euvolemic. 3. Discontinue intravenous heparin 4. Subcutaneous heparin 5. Cardiothoracic surgery consultation regarding suitability for revascularization versus f urther coronary stenting Thank you for allowing [facility] to be involved in the care of this patient. Please call with any questions . [facility] Patient Care Team: Chato Matson MD as PCP - General (Family Medicine) Randy Figueroa MD as Physician (Cardiology) ADARSH Stevens as Nurse Practitioner (Nurse Practitioner) documented in this en counter Procedure Notes Khurram Canas MD - 05/19/2018 4:54 PM PDTAssociated Order(s): CV CARDIAC PROCEDURECORON MACIEJ CATH and INTERVENTION REPORT PATIENT NAME/: Ron Will, (1955) DATE OF SERVICE: 05/19/2018 PRIMARY FOXING PAINTER: Randy Figueroa MD ENGINE BUILDER: Khurram Canas MD PROCEDURES PERFORMED: Single-Vessel Coronary [...] was done with thermal outputs obtained (no Alsesandro due to his O2 needs). All equipment [...] SonoSite and a micro cath a 14 Maltese was eventually placed in the right femoral [...] chronic renal failure Thank you for allowing [facility] to be involved in the care of this patient. Please call with any questions . [facility] PRIMARY CARE PROVIDER: Jeet King MD Performed at [facility] documented in this encounter Consult Notes Ghada Jeffrey RN - 05/20/2018 1:05 PM PDTPatient was evaluated for outpatient cardiac jennie ab but is not eligible due to: - no interest in attending a program. arli Meade MD - 05/17/2018 10:31 PM PDTFo rmatting of this note might be different from the original. PATIENT NAME: Ron Will : 1955: AGE: 62 y.o. PRIMARY CARE: Jeet King MD REFERRING: Dr Devon Trujillo, Dr Khurram Canas, Dr Macho Meade MD [facility] Inpatient Advanced Heart Failure Consult Date of Service: 05/17/2018 IMPRESSION & RECOMMENDATIONS It was a pleasure to see Mr Estrella at the request of Missael Marshall and Arnulfo. In summ maciej, Mr Will is a 62 y.o. year [...] consider It was a pleasure to see Ron Will at the request of Missael Marshall and Arnulfo . Thank you for allowing us to participate in this patient's care. My impressions and ronald mmendations have been discussed with Dr Canas, Dr Arredondo and Marimar Torres COMPLIANCE CONSULTANT, as well as t he patient. The advanced heart failure service will continue to follow along. Should you h ave any questions or concerns, I can be reached through the office or answering service at [phone]. Carli Meade MD MPH [facility] [place] [facility] Consult Question: Does Mr Will need [...] report, had repeat VF arrest in the cytogenetics laboratory manager requiri ng emergent PCI of LM into both LAD and a large co-dominant LCX. He was then supported by IA BP and VA ECMO peripherally at [facility]. He was seen in follow up with eventual WEI leading to f inding of persistent moderate to severe LV systolic dysfunction, stage C HFREF, LBBB and ear ly ISRS of LM-LCX requiring repeat PTCA to LCX and Medtronic IT SENIOR SOFTWARE ENGINEER JAVA-D. Since then, Ashok has not had durable improvement. Sometimes, he [...] Oral Daily IV INFUSIONS: PHYSICAL EXAM Tele: [place]: n/a BP 99/56 | Pulse 72 | [...] reasonable insight and judgment demonstrated during visit, garrett nolan eye contact Pertinent Tests: I have reviewed all available imaging studies in [employer] and pushed them into [employer] . Of note, I susepct his nuclear viability study supports LCX revasc as his anatomy is codom inant and the LCX provides significant inferior circulation. He does not have evidence of vi ability or perfusion to anterior (LAD) territory. It does appear he may have lost a high antonio g vs ramus at time of PCI in 09/2017. Echo from [facility] very limited, likely due to study being transferred and images being downs ized. No evidence of marked valve pathology. LVEF globally severely depressed. No evidence o f aneurysm or thrombus w/use of definity. All Component Based Labs 05/17/18 0348 ANION GAP 10 B-TYPE NATRIURETIC PEPTIDE 224 Comment: Performed by [facility] [address] [place] [address] (H) BUN 27(H) Calcium 8.7 Chloride 105 Carbon dioxide 27 Creatinine 1.89(H) Estimated GFR 37 Comment: eGFR<60 consistent with impaired kidney function. Performed by [facility] [address] [place] [place] [address] (L) GLUCOSE 103(H) K 4.6 NA 142 [...] Signed by: Carli Meade MD MPH FACC 05/17/2018, 22:31 Twan Doyle Chaplain - 05/16/2018 12:04 PM PDTAssociated Order(s): IP CONSULT TO SPIRITUAL CARESpiritual Care Encounter (CARE note): C Critical information/concern: Responded to spiritual care consult; per RN, pt has been t earful, has "many stresses in his life," and needed someone to talk to. When I visited, pt w as hopeful and bmmnio-ej-ondt. He shared that he has been in and out of the hospital for the last 2 years. Pt lives in [place], and said it's been stressful for his , who is here in [place] in their RV, but is staying in [...] w-up visits. I will refer pt to unit for follow-up. Dana Flores ARNP - 05/15/2018 12:21 PM PDT [facility] Advanced Cardiac Care PATIENT NAME: Ron Will : 1955: AGE: 62 y.o. ADMISSION [...] 2017 w hen he first presented to [facility] with an acute anterior STEMI. He was found to have severe left main disease and underwent ANY to the distal LM/LAD and LM/LCX. At that t nhi he was in critical condition requiring placement of an IABP and multiple pressors. He w as then transferred to [facility] for further treatment and possible surgical revascularization. [...] LBBB and was diagnosed with recurrent anterior VT along with his pneumoni a. His troponin [...] were made to transfer the patient to [place] but he declined and was transferred to [facility]. It appears that t he patient did require support with the placement of an Impella. Repeat [place] ANY to ostial LCX and PTCA to distal LM into LAD along with removal of the Impella was performed at [facility]. Also, during that admission a Medtronic biventricular ICD was implanted. The patient states that he continued to have episodes of decompensated heart failure. He o nce again developed recurrent dyspnea and was admitted to [facility]. After 2 week s of therapy he was then transferred to [facility]. While there a repeat viability study was pe rformed continuing to show no viability to the anterior wall. He also underwent a repeat co ronary angiogram showing tight restenosis of the ostial LCX. He was then transferred to [facility] for possible surgical revascularization with LVAD support. [...] and LM/LCx bifur cations 03/2017 transferred to [facility] in critical condition with IABP and multiple [...] of LCX, no significant RCA disease 10/15/17 [place] ANY to ostial LCX, PTCA to distal LM into LAD, removal of Impella ([facility]) 10/2017 viability study showing no viability to [...] the ostial LCX (as reviewed by a [facility] surgical team) 2. Ischemic cardiomyopathy Please refer [...] LIST: Active Problems: Coronary artery disease involving umatilla tribe coronary artery of umatilla tribe heart without angina p ectoris Ischemic cardiomyopathy IT SENIOR SOFTWARE ENGINEER JAVA-D (AICD) Medtronic 10/16/17 [facility] Chronic systolic congestive heart failure COPD (chronic obstructive pulmonary disease) Past Medical History: Diagnosis Date Acute anterior wall VT (HCC) 04/03/2017 Angiography and stent 03/15/2017 successful [...] Cor Angio; Surgeon: Monse Ross MD; Location: [facility] CV LAB CARDIAC CATHERIZATION N/A 10/03/2017 Procedure: CV Cor Angio; Surgeon: Delmer Dai MD; Location: [facility] CV LAB ELBOW SURGERY Left GALLBLADDER SURGERY NASAL SEPTUM SURGERY UPPER GASTROINTESTINAL ENDOSCOPY N/A 10/05/2017 Procedure: EGD; Surgeon: Terry Weir MD; Location: [facility] MED[facility] PROCEDURE UN[facility] No family history on [...] Value Date/Time WBC 9.6 05/15/2018825 HGB 13.8 05/15/2018 08 HCT 40.5 05/15/2018825 HCT 43.3 10/07/2017 0351 PLT 185 05/15/2018825 PLT 178 10/07/2017 035 MCV 92.4 05/15/2018 08 NA 138 05/15/2018 08 K 4.6 05/15/2018825 CL 105 05/15/2018 08 CO2 24 05/15/2018 08 BUN 24 05/15/2018 08 CREA 1.79 (H) 05/15/2018825 CALCIUM 8.9 05/15/2018 08 MG 1.9 10/07/2017 035 AST 29 05/14/2018926 ALT 57 05/14/2018926 ALKPHOS 78 05/14/2018926 BILITOT 0.5 05/14/2018926 EGFR 39 (L) 05/15/2018825 TOTALPROTEIN 7.2 05/14/2018926 ALBUMIN 4.4 05/14/2018926 PROTIME 14.1 (H) 10/03/2017 1129 INR 1.10 10/03/2017 1129 BNP 495 (H) 10/03/2017 112 Signed by: ADARSH Sr 05/15/18, 1300 This note or portions of this note have been dictated using [employer] recognition s oftware. It will be reviewed for major content but may contain mistakes due to difficulties with voice recognition software. Rambo, Devon Boyle MD - 05/14/2018 1:43 PM PDT Attestation signed by Devon Trujillo MD at 05/14/2018 16:52 to a previous version Addendum: I have reviewed the note below, personally reviewed the available laboratory and imaging st udies and examined the patient. I agree with the assessment below, with the following additi on. Mr. Will had a massive VT and underwent left main/LAD/circumflex stenting and was supp orted with ECMO. He ultimately survived that episode quite well. In October he underwent repeat catheterization and stenting of the ostial circumflex along with balloon angioplasty of the left main and proximal LAD. Surgery was considered at that time but primarily becaus e of non-viability of the LAD territory surgery was felt to be too high risk for the reward. This was all done in [place] at [facility]. A couple of weeks ago he presented with worsening heart failure having weight gain and prog ressive dyspnea over a couple of weeks prior to his admission. His ejection fraction was fo und to be reduced to 20-25%. He underwent repeat coronary angiography at [facility] and was fou nd to have tight [...] rt. The patient therefore was transferred to [place] and admitted this morning by Dr. Arredondo. [...] signed by: Devon Trujillo M.D. CardioThoracic Surgery [facility] 05/14/2018 16:28 [facility] Cardiothoracic Surgical Consult Date of Consultation: 05/14/2018 NAME/AGE/: Ron Will 62 y.o. male (1955) ADMISSION DATE: 05/13/2018 Primary Flash Developer: Dr. Figueroa Requesting/Referring Physician: Dr. Arredondo Primary Care Provider: Chato Matson MD REASON FOR CONSULTATION 2-vessel CAD History of Present Illness Mr. Will is a 62 y.o. male with a history of CAD that involves an VT with cardiac arre st, IABP, and even ECMO in March of last year. At that time, he received stents to his left m ain, LAD, and circumflex arteries. He subsequently underwent repeat stenting of the ostial circumflex in October 2017. He was transferred to [facility] yesterday for evaluation for CABG after a cath last week showed significant in-stent restenosis at the take-offs of his LAD and circu mflex arteries. He apparently also had a nuclear medicine stress test, echocardiogram, and v iability study at [facility] prior to transfer here and our office [...] but stopped at the time of his VT last year. Aside from his arrest, he's never had any r espiratory problems that have required intervention, does not use any inhalers, and has good activity tolerance. thinks she may have been told he could have had a stroke at the ti me of his VT, but from what I gather this was probably during the acute setting around the [facility] he was on ECMO and she's never heard mention of this again. No personal history of cance r. ASSESSMENT 1. Coronary artery disease 05/03/2018: Distal [...] and is a large, dominant artery. 03/15/2017: VT, cardiogenic shock -> IABP, ECMO. Stents to left main, LAD, circumflex. 2. Ischemic cardiomyopathy History of cardiac arrest 03/15/2017. AICD in place, no defibs since his initial defibrillati ons at time of arrest. LVEF 40%, decline to 30% 3. Acute renal insufficiency in chronic kidney disease Since the time of his VT. Serum Cr 1.8 today, baseline unknown. STS [...] possibly today depending on availability of s tudies. Review of Systems Consitutional - No night [...] Diagnosis Date Noted PAD (peripheral artery disease) ([facility]) Priority: High Note Last Updated: 01/06/2018 Segmental pressures 11/24/17 Abnormal left ankle brachial index of 0.91 consistent with s gurvinder segment disease. COPD (chronic obstructive pulmonary disease) ([facility]) 05/14/2018 Actinic keratosis 04/14/2018 Basal [...] EP study for inducible ventricular tachycar antonio. IT SENIOR SOFTWARE ENGINEER JAVA-D (AICD) Medtronic 10/16/17 [facility] Stecker 10/19/2017 Note Last Updated: 11/11/2017 MODEL NAME MODEL# SERIAL# DATE IMPLANTED GENERATOR Medtronic [id number] 10/16/17 RV LEAD Medtronic [id number] 10/16/17 A LEAD Medtronic [id number] 10/16/17 Coronary Sinus LEAD Medtronic [id number] 10/16/17 Indication: ischemic cardiomyopathy with reduced EF 30-35% Implantable defibrillator reprogramming/check 10/19/2017 H/O atrial flutter 10/19/2017 Chronic systolic congestive heart failure (HCC) 10/17/2017 Paroxysmal atrial flutter (HCC) 10/12/2017 Pulmonary edema 10/03/2017 Ischemic cardiomyopathy 05/26/2017 Note Last Updated: 04/05/2018 S/P Medtronic IT SENIOR SOFTWARE ENGINEER JAVA-D -- Dr Darby, [facility] Pet Scan 10/13/17 shows No Significant tracer [...] continued to deteriorate. Coronary artery disease involving umatilla tribe coronary artery of umatilla tribe heart without angina pectoris 04/06/2017 Note Last [...] with normal respiratory collapse. Acute anterior wall VT (HCC) 04/03/2017 Note Last Updated: 10/20/2017 Transthoracic [...] Medical History: Diagnosis Date Acute anterior wall VT (HCC) 04/03/2017 Angiography and stent 03/15/2017 successful [...] Cor Angio; Surgeon: Monse Ross MD; Location: [facility] CV LAB CARDIAC CATHERIZATION N/A 10/03/2017 Procedure: CV Cor Angio; Surgeon: Delmer Dai MD; Location: [facility] CV LAB ELBOW SURGERY Left GALLBLADDER SURGERY NASAL SEPTUM SURGERY UPPER GASTROINTESTINAL ENDOSCOPY N/A 10/05/2017 Procedure: EGD; Surgeon: Terry Weir MD; Location: [facility] PROC[facility]URE [facility] Allergies: No Known Allergies [...] tablet 500 mg 500 mg Oral BID Macho Arredondo MD 500 mg at 05/14/18 [...] per day metFORMIN 500 mg Oral BID metoprolol succinate 25 mg Oral Daily pantoprazole 40 mg Oral QAM AC sacubitril-valsartan 1 tablet Oral BID IV Meds: Imaging: No results found. [facility] [address], [address] [place] [address] Portions of this chart may have been created with [employer] voice recognition software. Occasi onal wrong-word or sound-alike substitutions may have occurred due to the inherent canseco itations of voice recognition software. Please read the chart carefully and recognize, using context, where these substitutions have occurred. documented in this en counter Miscellaneous Notes Treatment Plan - Crali Meade MD - 05/21/2018 9:35 AM PDTUniversal Health Services & Services [facility] Patient scheduled with mdCarli MD, for Adv Heart Failure follow up [...] Shift Summary Note Room # 608/608-01 Name: Ron Will [id number] Code Status: Full Code Isolation: None Dx/Tx: [...] Summary Information: Pt. Admitted on 05/[address] [facility] with recurrent HF with recurrent SOA and pulmonary edema. Transferred to assess potential for surgical revasculari zation to imrpove LV systolic dysfunction. History of CKD, Diabetes, LOUISA CAD. On 05/19 an int ra-vascular S and angioplasty was performed only to the circumflex because of a 95% stenosis of the circumflex. Neuro: AOx4 Resp: Lungs clear/dim LDAs R hand PIV Cardiac: Ventricular Rhythm: (v-[id number]) (05/21/18 0200) Active Gtts: Abnormal Labs/ Treatment: See Results [...] chronic neck/back pain. Activity: Independent lan of Haroldo Cortez RN - 05/20/2018 11:55 PM PDTPt. Requested to sleep and be assessed when he wa kes. No BP was taken. Pt. Has unlabored Breathing, AOx4, moves independently in bed. No c/o pain. Pleasant but re quested to sleep and be reassessed at a later time. Given lack of sleep the previous night, request granted. lan of Sony Lamar RN - 05/20/2018 7:35 PM PDT Problem: [...] Shift Summary Note Room # 608/608-01 Name: Ron Will [id number] Code Status: Full Code Isolation: None Dx/Tx: CAD, hx stemi/aicd Surgery/ Procedure: SP HC-> stent to CX Vitals: 05/20/18 0900 05/20/18 1120 05/20/18 1500 05/20/18 1700 BP: 99/41 117/65 111/71 Pulse: 70 76 67 Resp: 18 Temp: 36.2 C (97.2 F) 35.3 [...] Shift Summary Note Room # 608/608-01 Name: Ron Will [id number] Code Status: Full Code Isolation: None Dx/Tx: Surgery/ Procedure: Vitals: 05/20/18 0000 05/20/18 0400 05/20/18 0900 05/20/18 1120 BP: 111/56 108/58 99/41 117/65 Pulse: 79 82 70 76 Resp: 18 18 17 18 Temp: 35.9 C (96.7 F) 36.1 C (96.9 F) 36.2 C (97.2 F) 35.3 C (95.6 F) TempSrc: Temporal Temporal Temporal Temporal SpO2: 95% 95% Weight: Height: Shift Summary Information: s/p HC stent to Circ, bilat groins stable/soft/no hematoma, dist al pulses palpable. CHF, EF 25%. Hx STEMI. ICD/PPM, currently p-tracking v-pacing on the mon itor. PRN norco 2 tabs given for [...] hematoma Pain: Activity: Therapy involved?: lan of [facility] - Heather Zhou RD - 05/20/2018 11:20 AM PDTStable nutritional status per available paramete rs. PO intake: 100% of low fat, 3-4 g Na meals; Wt fluctuates, but over all stable x 1 year ; Last BM 05/18. Vit D 44.8 on 05/18/18. Rounding as needed with team. Electronically signed by: Heather Garcia RD 05/20/2018 11:22 [phone] dave d by Heather Garcia RD at 05/20/2018 11:22 AM PDTPlan of [facility] Haroldo Chan RN - 4:25 AM PDT [...] Shift Summary Note Room # 608/608-01 Name: Ron Will [id number] Code Status: Full Code Isolation: None Dx/Tx: PCI Surgery/ Procedure: Vitals: 05/19/188 05/19/18 2102 05/20/18 0000 05/20/18 0400 BP: 103/54 111/56 108/58 Pulse: 76 79 82 Resp: Temp: 36.3 C (97.4 F) 35.9 C (96.7 F) 36.1 C (96.9 F) TempSrc: Temporal Temporal Temporal SpO2: 92% 95% 95% Weight: 94.9 kg (209 lb 3.5 oz) Height: Shift Summary Information: Pt. Admitted on 05/[address] [facility] with recurrent HF with recurrent SOA and [...] Last Bowel Movement: 05/18/18 (05/19/18 1934) : Voids independently Skin: (Incisions/ Wounds/ Edema) [...] site redressed by cv tech lan of Care - Sharon Pierre RN - 05/19/2018 5:28 PM PDT Problem: [...] / 6S Shift Summary Note Room # [facility] POOL/[facility] P* Name: Ron Will [id number] Code Status: Full Code Isolation: None Dx/Tx: PCI Surgery/ Procedure: Vitals: 05/19/18 1705 05/19/18 1710 05/19/18 1715 05/19/18 1717 BP: 105/61 105/56 106/58 106/58 Pulse: 64 63 71 65 Resp: 15 16 14 12 Temp: TempSrc: SpO2: 96% 97% 97% 99% Weight: Height: Shift Summary Information: Pt admitted on 05/17 from [facility] with recurrent heart [...] Active Gtts: sodium chloride 0.45% 1,000 mL (05/18/182156) Abnormal Labs/ Treatment: GI: BT x4, states he had a BM this AM Active Orders Diet Diet NPO; strict NPO; Effective Midnight Last Bowel Movement: 05/18/18 (05/19/18 0800) : Voiding Skin: (Incisions/ Wounds/ Edema) Bilateral groin sites with closure devices, wnl Pain: Neck, chronic 2 norco Q4 hours Activity: Independent Therapy involved?: nterim Summary - Physician - Khurram Canas MD - 05/19/2018 2:42 PM PDTI d/w pt and his (via phone) about the heart team discussion. There was general agreement that high risk PCI to the LM/c irc is his best option, I will do it with Impella support. I did review prior caths - has 3 .0 Taxus at ostial circ in March 2017 at [facility] in . Then had a 3.0 x 13 [place] ANY in pr ox circ, extending back into LM with post dilatation with 3.5 NC balloon in 2017 at [facility]. Anticipate doing IVUS guided PTCA only [...] well, the patien t elected to proceed. [place] [employer] of An[employer] Grade: ASA 4 - A patient with severe systemic disease that i s a constant threat to life Mallampati Class: III (base of uvula and soft palate) [facility] [phone] lan of Care - Beckie Chambers RN [...] Shift Summary Note Room # 608/608-01 Name: Ron Will [id number] Code Status: See prior hospital encounter Isolation: [...] on RA, 1-2L 02 via NC at [facility] for comfort LDAs PIV intact, infusing [...] cane Therapy involved?: lan of Care - Kop kilo, Iliana Ford RN - 05/19/2018 5:33 AM PDTFormatting of [...] Shift Summary Note Room # 608/608-01 Name: Rno Will [id number] Code Status: See prior hospital encounter Isolation: [...] Height: Shift Summary Information: Pt transferred from [facility]. HF- SOB, pulmonary [...] Shift Summary Note Room # 608/608-01 Name: Ron Will [id number] Code Status: See prior hospital encounter Isolation: None Dx/Tx: CHF Surgery/ Procedure: Vitals: 05/18/18 1048 05/18/18 1130 05/18/18 1355 05/18/18 1618 BP: 101/55 104/53 101/60 Pulse: 69 67 69 68 Resp: Temp: 36.4 C (97.5 F) (!) 30.2 C (86.3 F) TempSrc: Temporal Temporal SpO2: 94% 93% 94% Weight: Height: Shift Summary Information: Pt admitted on 05/17 from [facility] with recurrent heart [...] cane Therapy involved?: lan of Care - Beckie Pleitez RN - 05/18/2018 11:40 AM PDTFormatting of [...] Shift Summary Note Room # 608/608-01 Name: Ron Will [id number] Code Status: See prior hospital encounter Isolation: [...] on rest. 1-2L 02 via NC at [facility] for comfort LDAs PIV intact, flushes well Cardiac: Hx AICD 100% V-pacing Ventricular Rhythm: other (see comments) (V-paced ) (05/18/18 07) Active Gtts: Abnormal Labs/ Treatment: GI: Abdomen soft, good appetite Active Orders Diet Diet fat and cholesterol modified; sodium restricted 3-4 gm; Effective Now Last Bowel Movement: 05/18/18 (05/18/18 0749) : Voiding via urinal. Skin: (Incisions/ Wounds/ [...] Shift Summary Note Room # 608/608-01 Name: Ron Will [id number] Code Status: See prior hospital encounter Isolation: [...] Shift Summary Information: Slept most of shift. Blossburg PRN for chronic neck pain. Awaiting c [...] (Incisions/ Wounds/ Edema) Pain: Chronic neck pain. Bl[place] PRN Activity: Independent Therapy involved?: lan of [...] Shift Summary Note Room # 608/608-01 Name: Ron Will [id number] Code Status: See prior hospital encounter Isolation: None Dx/Tx: HF, CAD, Hx VT/stents Surgery/ Procedure: care conference Thursday Vitals: 05/17/18 [...] possibly LVAD vs transplant w/u. Takes prn Blossburg 10mg for chronic pain. Denies pain. VSS. Spouse at bedside this evening. Ambulating independently in room/hyde c cane. Allegra n for PFT's tomorrow at 11:00. Neuro: A/o Resp: RA. Using 1-2 L NC at night for comfort LDAs PIV X1 Cardiac: 100% V-paced. EF 25%. Abnormal Labs/ Treatment: Creatinine 1.89, see labs GI: wnl : wnl Skin: (Incisions/ Wounds/ Edema) Intact Pain: Prn Blossburg 10 mg for chronic back pain Activity: [...] Shift Summary Note Room # 608/608-01 Name: Ron Will [id number] Code Status: See prior hospital encounter Isolation: None Dx/Tx: CHF, Surgery/ Procedure: pending care conference 05/19 LVAD vs transplamt Vitals: 05/17/18 0353 05/17/18 0744 05/17/18 1000 05/17/18 1059 BP: 116/72 111/61 107/53 Pulse: 68 67 71 Resp: 16 Temp: 36 C (96.8 F) 35.9 [...] current medical therapy.Electronically signed by ADARSH Farias a t 05/17/2018 10:52 AM PDTAssessment & Plan Note - Marimar Torres ARNP - 05/17/20 18 10:46 AM PDTAssociated Problem(s): COPD (chronic obstructive pulmonary disease) ([facility])A: -Patient on room air, ambulating the halls. [...] AM PDTAssociated Problem(s): Coronary artery disease involving [place] coronary artery of um[place] tribe heart without angina pectorisA: -Patient able to ambulate the halls without chest pain or discomfort. -Currently on Aspirin daily, and nitro as needed. P: -Plan for possible coronary revascularization after case is presented at heart team meeting . 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 A: -Patient ventricular paced 100% this morning. No arrhythmias on telemetry. P: -No acute therapy. Continue current therapy. ssessment & Plan Note - Marimar Torres ARNP - 05/17/2018 10:33 AM PDTAssociated Problem(s): Ischemic cardiomyopathy03/2018: LVEF of [...] Shift Summary Note Room # 608/608-01 Name: Ron Will [id number] Code Status: See prior hospital encounter Isolation: None Dx/Tx: Surgery/ Procedure: Vitals: 05/16/18 1500 05/16/18 1900 05/17/18 0000 05/17/18 0353 BP: 114/61 112/57 91/46 116/72 Pulse: 63 70 71 68 Resp: 16 18 18 18 Temp: 35.3 C (95.6 F) 36.1 C (96.9 F) 35.9 C (96.7 F) 36 C (96.8 F) TempSrc: Temporal Temporal Temporal Temporal SpO2: 94% 98% 95% 98% Weight: Height: Shift Summary Information: Surgical consult Thursday for possible w/u for LVAD vs heart tr ansplant. Hx ICD, VT. A&O. RA. VSS. Neuro: A&O Resp: RA. 1-2 L at night for comfort LDAs PIV Cardiac: 100% P-tracking Active Gtts: Abnormal Labs/ Treatment: GI: Active Active Orders Diet Diet fat and cholesterol modified; sodium restricted 3-4 gm; Effective Now : Voiding Skin: (Incisions/ Wounds/ Edema) Pain: Blossburg PRN for neck pain Activity: Independent with [...] Shift Summary Note Room # 608/608-01 Name: Ron Will [id number] Code Status: See prior hospital encounter Isolation: [...] for LVAD vs heart trans plant. Hx VT (age 40's), stents, HTN, HLD, and strong [...] pain Activity: Independent, uses cane lan of Care - Re Cameron edwards RN - 05/16/2018 4:22 AM PDTFormatting of this note might be different from alie reyes original. Problem: Patient Care Overview (Adult) Goal: Care Team Goals & Evaluation PROBLEM-RELATED GOALS: STRATEGY TO ACHIEVE GOALS: RESTRAINT-RELATED GOALS: STRATEGIES TO ACHIEVE RESTRAINT GOALS: Outcome: Improving 6N / 6S Shift Summary Note Room # 608/608-01 Name: Ron Will [id number] Code Status: See prior hospital encounter Isolation: [...] t his shift, up IND w/ cane. Blossburg 5 x2 Q4hr for pain, well controlled. [...] Skin: (Incisions/ Wounds/ Edema) Intact Pain: PRN [place] 5mg x2 Q4 hr for chronic back and neck pain Activity: IND w/ cane Therapy involved?: lan of Richar - Cameron Peters RN - 05/15/2018 6:53 AM PDTFormatting of this note might be different from the [place]. Problem: Patient Care Overview (Adult) Goal: Care Team Goals & Evaluation PROBLEM-RELATED GOALS: STRATEGY TO ACHIEVE GOALS: RESTRAINT-RELATED GOALS: STRATEGIES TO ACHIEVE RESTRAINT GOALS: Outcome: Improving 6N / 6S Shift Summary Note Room # 608/608-01 Name: Ron Will [id number] Code Status: See prior hospital encounter Isolation: [...] in 80's, no order parameters o n metoprolol, MD notified, order parameters placed and evening dose of metoprolol held. Hx I CD. Neuro: A & Ox4 Resp: RA during day, 2L O2 NC at night SPO2 in 80's LDAs PIV Cardiac: P-Tracking 74 Active Gtts: Abnormal Labs/ Treatment: GI: WDL Active Orders Diet Diet fat and cholesterol modified; sodium restricted 3-4 gm; Effective Now : Voiding Skin: (Incisions/ Wounds/ Edema) Intact Pain: [place] 5 x2 Q4hr, chronic back pain Activity: IND w/ 4 point cane Therapy involved?: ssessment & Plan Janel Coleman ARNP - 05/14/2018 9:30 AM PDTAssociated Problem(s): Chronic systo lic congestive heart failure (HCC)No indication of acute volume overload. Electronically sig phoebe by ADARSH Matthews at 05/14/2018 9:30 AM PDTAssessment & Plan Janel Coleman ARNP - 05/14/2018 9:29 AM PDTAssociated Problem(s): COPD (chronic obstructi ve pulmonary disease) (HCC)Chronic condition. ssessment & Plan Janel Coleman ARNP - 05/14 9:23 AM PDTAssociated Problem(s): Ischemic cardiomyopathy03/2018: LVEF of 35%. 04/2018: LVEF of 25%. Done at [facility] while admitted for CHF-pulmonary edema, and shortness o f breath. GDMT:Fuorsomide, metoprolol XL, and Entresto. Creatinine stable 1.23-could consider spironolactone. ssessment & Plan Janel Coleman ARN P - 05/14/2018 9:21 AM PDTAssociated Problem(s): Coronary artery disease involving um[place] tribe c oronary artery of um[place] tribe heart without angina pectoris7/2017: transferred from [facility] with thrombosed left main artery treated with PCI of the left main into the LAD and s ubsequent PCI of left circumflex. Acute cardiogenic shock status post ECMO. Left atrial clot, previously on coumadin. 10/2017 when he was admitted at [facility] for pneumonia and unstable angina and underwent drug-el uting stent to ostial left circumflex and angioplasty of the distal left main with balloon i nflation extending into the left anterior descending. ssessment & Plan Note - Janel Hester ARNP - 05/14/2018 9:17 AM PDTAssociated Problem(s): IT SENIOR SOFTWARE ENGINEER JAVA- D (AICD) Medtronic 10/16/17 [facility] SteckerBiV paced this am. Placen in 10/2017 at [facility]. No arhythmia noted on telemetry. Electronically signed by ADARSH Matthews at 03/2018 9:20 AM PDTPlan of Care - Margarita Armstrong RN - 05/14/2018 2:44 AM PDT Problem: Patient Care Overview (Adult) Goal: Care Team Goals & Evaluation PROBLEM-RELATED GOALS: STRATEGY TO ACHIEVE GOALS: RESTRAINT-RELATED GOALS: STRATEGIES TO ACHIEVE RESTRAINT GOALS: Outcome: Improving Goal Evaluation: 6N / 6S Shift Summary Note Room # 604/604-02 Name: Ron Will [id number] Code Status: See prior hospital encounter Isolation: [...] consult in the am to discuss p laurenable [place]. No complaints of CP. Chronic neck [...] (Incisions/ Wounds/ Edema) dry and intact Pain: Blossburg 10mgs q4 for chronic neck pain Activity: Independent in room Therapy involved?: lan of Richar - Dana Jordan RN - 05/13/2018 10:57 PM PDTFormatting of this note might be different from the o riginal. Problem: Patient Care Overview (Adult) Goal: Care Team Goals & Evaluation PROBLEM-RELATED GOALS: STRATEGY TO ACHIEVE GOALS: RESTRAINT-RELATED GOALS: STRATEGIES TO ACHIEVE RESTRAINT GOALS: Goal Evaluation: 6N / 6S Shift Summary Note Room # 604/604-02 Name: Ron Will [id number] Code Status: See prior hospital encounter Isolation: None Dx/Tx: Surgery/ Procedure: Vitals: 05/13/18 1654 05/13/18 2224 BP: 108/60 121/69 Pulse: 73 83 Resp: 16 16 Temp: 36.4 C (97.6 F) 35.8 C (96.4 F) TempSrc: Temporal Temporal SpO2: 94% 91% Weight: 94.6 kg (208 lb 8.9 oz) Height: 1.753 m (5' 9") Shift Summary Information: Arrived from [facility] via ambulance at 1630. [facility] notified of his arrival. Arrived with Heparin gtt infusing at 16.5 ml/hr. Denied any ch est pain. Only complaint was neck pain which is chronic. Lasix was given prior to his depar ture at [facility] and the EMT staff stated he voided [...] QS Skin: (Incisions/ Wounds/ Edema) intact Pain: Blossburg 5 X 2 Q4 for chronic neck pain, wishes to take ARC. also takes neurontin Activity: Up independently, uses cane, Therapy involved?: Surgical consult tomorrow. documented in this enc ounter Plan of Treatment +--------+ + + + + | Date | Type | Specialty | Care Team | Description | +--------+ + + + + | 03/12/ | Office | Nephrology | [facility], | | | 2019 | Visit | | ADARSH [address] | | | | | | [facility] | | | | | | [...] | | | | | [place] [address] | | | | | | [phone] | | | | | | | [...] [place] | | | | | | [address] | | | | | | | [...] starting 05/21/2018 | | | | | umatilla tribe coronary | until 05/21/2019 | | | | | artery of umatilla tribe | | | | | | heart without angina | | | | | | pectoris | | + +------+--------+ + + + + +--------+ + + | Name | Type | Priori | Associated Diagnoses | Order Schedule | | | | ty | | | + + +--------+ + + | [facility] | Outpatient | Routin | Coronary artery | Ordered: 05/21/2018 | | | Referral | e | disease involving | | | | | | umatilla tribe coronary | | | | | | artery of umatilla tribe | | | | | | heart [...] [facility] | | | | by [facility] [address], | | SACRED | | | | [place] [address] | | HEART | | | |Performed by [facility] [address], [place] [address] | | MEDICAL | | | | [...] + | [facility] | [address] | [place] [address] | | | [facility] | | | | | LABORATORY CERNER [...] | | MEDICAL | | | | [facility] [address], | | CENTER | | | | [place] [address] | | LABORATORY | | | | | | [place] | | + + + + + + + + | Specimen | + + | Blood specimen | | (specimen) | + + + + + + + | Performing | Address | City/State/Zipcode | Phone Number | | Organization | | | | + + + + + | [facility] | [address] | [place] [address] | | | [facility] | | | | | LABORATORY [place] [...] | 260 (H)Comment: | <=100 pg/mL | [facility] | | | | Performed by [facility] [address] | | SACRED | | | | [address] [place] | | HEART | | | | [id number] | | MEDICAL | | | | [...] + + | [facility] | [address] | [place] [address] | | | [facility] | | | | | LABORATORY ED[place] [...] [facility] | | | | by [facility] [address], | | SACRED | | | | [place] [address] | | HEART | | | |Performed by [facility] [address], [place] [address] | | MEDICAL | | | | [...] + | [facility] | [address] | [place] [address] | | | [facility] | | | | | LABORATORY [...] | | MEDICAL | | | | [facility] [address], | | CENTER | | | | [place] [address] | | LABORATORY | | | | [...] + + | [facility] | [address] | [place] [address] | | | [facility] | | | | | BHARATI HERNÁNDEZ [...] | TRACEMASTER | | Duration:196 msP Horizontal [place]:-6 degP Front [place]:72 degQ Onset:508 | | | msQRSD Interval:148 msQT Interval:500 msQTcB:508 msQTcF:505 msQRS | | | Horizontal [place]:217 degQRS [place]:167 degI-40 Horizontal [place]:188 | | | degI-40 Front [place]:148 degT-40 Horizontal [place]:231 degT-40 Front | | | [place]:163 degT Horizontal [place]: degT Wave [place]:15 degS-T Horizontal | | | [place]:67 degS-T Front [place]:-59 degSeverity:- ABNORMAL ECG | | | -INTERP:ATRIAL-SENSED VENTRICULAR-PACED COMPLEXESElectronically signed | | | by: , 05-20-2018 05:48:28 | | |QTcB:508 ms | | |QTcF:505 ms | | |QRS Horizontal [place]:217 deg | | |QRS [place]:167 deg | | |I-40 Horizontal [place]:188 deg | | |I-40 Front [place]:148 deg | | |T-40 Horizontal [place]:231 deg | | |T-40 Front [place]:163 deg | | |T Horizontal [place]: deg | | |T Wave [place]:15 deg | | |S-T Horizontal [place]:67 deg | | |S-T Front [place]:-59 deg | | |Severity:- ABNORMAL ECG - | | |INTERP:ATRIAL-SENSED VENTRICULAR-PACED COMPLEXES | | |Electronically signed by: , 05-20-2018 05:48:28 | | + + + + + + + + | Performing | Address | City/State/Zipcode | Phone Number | | Organization | | | | + + + + + | [facility] | [address] [place] | [place] [address] | [phone] | + + + + + CV [...] and INTERVENTION | | REPORT PATIENT NAME/: Ron Will, (1955) MEDICAL RECORD | | NUMBER: [id number] DATE OF SERVICE: 05/19/2018 PRIMARY FOXING PAINTER: Macho | | MD Arnulfo ENGINE BUILDER: Khurram Canas MD PROCEDURES | | PERFORMED: [...] SonoSite and a micro cath a 14 Maltese was eventually placed in | | the [...] | | failure Thank you for allowing [facility] to be involved in the care | | of this patient. Please call with any questions . Electronically | | signed by: Khurram Canas MD on 05/19/2018 at 16:54 [facility] | | PRIMARY CARE PROVIDER: Jeet King MD Performed at [facility] | | [facility] | + + | Addendum by Khurram Canas MD on 05/19/2018 5:23 PM CORONARY CATH and INTERVENTION | | REPORT PATIENT NAME/: Ron Will, (1955) MEDICAL RECORD | | NUMBER: [id number] DATE OF SERVICE: 05/19/2018 PRIMARY FOXING PAINTER: Macho | | MD Arnulfo ENGINE BUILDER: Khurram Canas MD PROCEDURES | | PERFORMED: [...] SonoSite and a micro cath a 14 [place]altese was eventually placed in | | the [...] | | failure Thank you for allowing [facility] to be involved in the care | | of this patient. Please call with any questions . Electronically | | signed by: Khurram Canas MD on 05/19/2018 at 16:54 [facility] | | PRIMARY CARE PROVIDER: Jeet King MD Performed at [facility] | | [facility] | + + | Addendum by Khurram Canas MD on 05/19/2018 5:21 PM CORONARY CATH and INTERVENTION | | REPORT PATIENT NAME/: Ron Will, (1955) MEDICAL RECORD | | NUMBER: [id number] DATE OF SERVICE: 05/19/2018 PRIMARY FOXING PAINTER: Macho | | MD Arnulfo ENGINE BUILDER: Khurram Canas MD PROCEDURES | | PERFORMED: [...] SonoSite and a micro cath a 14 Maltese was eventually placed in | | the [...] | | failure Thank you for allowing [facility] to be involved in the care | | of this patient. Please call with any questions . Electronically | | signed by: Khurram Canas MD on 05/19/2018 at 16:54 [facility] | | PRIMARY CARE PROVIDER: Jeet King MD Performed at [facility] | | [facility] | + + + + + | Narrative | Performed At | + + + | Khurram Isabel | [facility] | | MD Missael 05/20/2018 18:40CORONARY CATH and INTERVENTION REPORT | | | PATIENT NAME/: Ron Will, (1955)MEDICAL RECORD | | | NUMBER: [id number] OF SERVICE: 05/19/2018PRIMARY | | | FOXING PAINTER: Randy Figueroa MD ENGINE BUILDER: | | | Khurram Canas MD PROCEDURES [...] SonoSite and a micro cath a 14 Maltese was | | | eventually placed in [...] renal failure Thank you for allowing [facility] | | | to be involved in the care of this patient. Please call with any | | | questions . [facility] PRIMARY CARE | | | PROVIDER:Jeet King MD Performed at [facility] | [facility] | | |administered to the patient at [...] | | | |Thank you for allowing [facility] to be involved in | | |the care of this patient. Please call with any questions ([phone] | | |[phone]. | | | | | | | | |[facility] | | | | | | | | | | | | | | |PRIMARY CARE PROVIDER: | | |Jeet King MD | | | | | | | | | | | | | | |Performed at [facility] | | + + + + +---------+ [...] + | [facility] | [address] | [place] [address] | | | [facility] | | | | | LABORATORY [...] + + | [facility] | [address] | [place] [address] | | | HEART MEDICAL CENTER | [...] + + | [facility] | [address] [place] | [place] [address] | | | [facility] | | | | | LABORATORY | [...] | | MEDICAL | | | | [facility] [address], | | CENTER | | | | [place] [address] | | LABORATORY | | | | | | CERNER | | + + + + + + + + | Specimen | + + | Blood specimen | | (specimen) | + + + + + + + | Performing | Address | City/State/Zipcode | Phone Number | | Organization | | | | + + + + + | [facility] | [address] | [place] [address] | | | HEART [facility] | | | | [...] | | | | defined by the [place] | | HEART | | | | of[facility], Inccine and an | | MEDICAL | | [...] IOM | | | | | | ([place] of [facility]). | | | | | | 2009. Dietary reference | | | | | | intakes for calcium | | | | | | and D. Parra [place]: | | | | | | The National | | | | | | Academies Press.2. | | | | | | Dawit REDDY, Isaac [place], | | | | | [...] 2010 | | | | | | Mar; | | | | | | 96(7):1911-30.Performed | | | | | | At: [facility] | | | | | | [id number] | | | | | | [address] [place], [place] | | | | | | [id number] Daniel | | | | | | Sergei BREWER Ph:[phone] | | | | + + + + + + + + | Specimen | + + | Blood specimen | | (specimen) | + + + + + + + | Performing | Address | City/State/Zipcode | Phone Number | | Organization | | | | + + + + + | [facility] | [address] | [place] [address] | | | [facility] | | | | | LABORATORY [...] | | MEDICAL | | | | [facility] [address], | | CENTER | | | | [place] [address] | | LABORATORY | | | | [...] + | [facility] | [address] | [place] [address] | | | [facility] | | | | | LABORATORY CERNER [...] [facility] | | | | Performed by [facility] [address] | | SACRED | | | [address], [place] | | HEART | | [...] + | [facility] | [address] | [place] [address] | | | HEART [facility] | | | | [...] | | MEDICAL | | | | [facility] [address], | | CENTER | | | | [place] [address] | | LABORATORY | | | | [...] + + | [facility] | [address] | [place] [address] | | | [facility] | | | | | LABORATORY [place] [...] PROVIDE N[facility] | | | | by [facility] [address], | | SACRED | | | | [place] [address] | | HEART | | | |Performed by [facility] [address], [place] [address] | | MEDICAL | | | | [...] + | [facility] | [address] | [place] [address] | | | [facility] | | | | | LABORATORY [...] | | MEDICAL | | | | [facility] [address], | | CENTER | | | | [place] [address] | | LABORATORY | | | | | | CERNER | | + + + + + + + + | Specimen | + + | Blood specimen | | (specimen) | + + + + + + + | Performing | Address | City/State/Zipcode | Phone Number | | Organization | | | | + + + + + | [facility] | [address] | [place] [address] | | | [facility] | | | | | LABORATORY ED[place] [...] | | | POC | Performed by [facility] [address] | | SACRED | | | [address], [place] | | HEART | | | | [address] | | MEDICAL | | | | [...] + | [facility] | [address] | [place] [address] | | | HEART MEDICAL CENTER | [...] | | | POC | Performed by [facility] [address] | | SACRED | | | | [address] [place], [place] | | HEART | | | | [address] | | MEDICAL | | | | [...] + + | [facility] | [address] | [place] [address] | | | [facility] | | | | | LABORATORY CERNER [...] | | | POC | Performed by [facility] [address] | | SACRED | | | [address], [place] | | HEART | | | | [address] | | MEDICAL | | | | [...] + | [facility] | [address] | [place] [address] | | | HEART MEDICAL CENTER | [...] | | MEDICAL | | | | [facility] [address] | | CENTER | | | | [place] [address] | | LABORATORY | | | | [...] + + | [facility] | [address] | [place] [address] | | | [facility] | | | | | LABORATORY CERNER [...] | | Oral, DAILY, First dose on Thu | | 18 9:14 | | | [...] fentaNYL (PF) injection ONCE | Given | 05/19/20 | 25 mcg | | | | PRN, Starting 05/19/18 at | | 18 4:50 | | | | | 1519, Intra-op | | PM PDT | | | | + +-------+ +--------+---+---+ +-------+ +--------+---+---+ | Given | 05/19/20 | 25 mcg | | | | | 18 4:47 | | | | | | PM PDT | | | | +-------+ +--------+---+---+ | Given | 05/19/20 | 25 mcg | | | | | 18 4:40 | | | | | | PM PDT | | | | +-------+ +--------+---+---+ +---+---+ | | | +---+---+ + +-------+ +--------+---+---+ | gabapentin (NEURONTIN) capsule | Given | 05/21/20 | 300 mg | | | | 300 mg 300 mg, Oral, 3 TIMES | | 18 9:13 | | | | | DAILY, First dose on Radha 05/13/18 | | AM PDT | | [...] +---+---+ + +-------+ +--------+---+---+ | heparin 1,000 units/mL | Given | 05/19/20 | 1,000 | | | | injection ONCE PRN, Starting Wed | | 18 4:40 | Units | | | | 05/19/18 at 1549, Intra-op | | PM PDT | | | | + +-------+ +--------+---+---+ +-------+ +--------+---+---+ | Given | 05/19/20 | 3,000 | | | | | 18 4:05 | Units | | | | | PM PDT | | | | +-------+ +--------+---+---+ | Given | 05/19/20 | 8,000 | | | | | 18 3:49 | Units | | | | | PM PDT [...] | | | | | dose on [facility] 05/13/18 at 2115 | | | | [...] | | | | Radha 05/13/18 at 2004 | | | | | | + [...] | +---+---+ + +-------+ +--------+---+---+ | iohexol (OMNIPAQUE 350) 350 | Given | 05/19/20 | 55 mLs | | | | mg/mL injection ONCE PRN, | | 18 4:57 | | | | | Starting Thu05/19/18 at 1657, | | PM PDT | | | | | Intra-op | | | | | | + +-------+ +--------+---+---+ +---+---+ | | | +---+---+ + +-------+ +--------+---+ + | lidocaine 1% injection ONCE | Given | 05/19/20 | 10 mLs | | Other | | PRN, Starting Thu05/19/18 at | | 18 3:30 | | | (Comment | | 1526, Intra-op | | PM PDT | | | ) | + +-------+ +--------+---+ + +-------+ +--------+---+ + | Given | 05/19/20 | 10 mLs | | Other | | | 18 3:26 | | | (Comment | | | PM PDT | | | ) | +-------+ +--------+---+ + +---+---+ | | | +---+---+ + +-------+ +------+---+---+ | melatonin tablet 5 mg 5 mg, | Given | 05/19/20 | 5 mg | | | | Oral, NIGHTLY PRN, Insomnia, | | 18 9:52 | | | | | Starting [facility] 05/13/18 at 2106 | | PM PDT [...] midazolam (VERSED) 1 mg/mL | Given | 05/19/20 | 0.5 mg | | | | injection ONCE PRN, Starting Wed | | 18 4:47 | | | | | 05/19/18 at 1518, Intra-op | | PM PDT | | | | + +-------+ +--------+---+---+ +-------+ +--------+---+---+ | Given | 05/19/20 | 0.5 mg | | | | | 18 4:40 | | | | | | PM PDT | | | | +-------+ +--------+---+---+ | Given | 05/19/20 | 1 mg | | | | | 18 4:30 | | | | | | PM [...] AM PDT | | | | | 05/14/18 at 0730, Do not cut or [...] | | | | First dose on [facility] 05/13/18 at 2100, | | | | [...] | | | DAILY, First dose on 05/17/18 | | AM PDT | | | [...]
--- OUTSIDE RECORDS SUMMARY | ~2020-03-04 | XMS | Encounter Summary ---
Demographics + + + | Address | [address] | | | [place] [address] | + + + | Home Phone [...] [place], [place] | | | | | [address] | | + + + + + Care Team Providers + +------+ + | Care Relations Manager Name | Role | Phone | + +------+ + | Chato Matson MD | PCP | | + +------+ + Reason for Visit +--------+--------+ + | Reason | Onset | Comments | | | Date | | +--------+--------+ + | Other | 06/23/ | | | | 2017 | | +--------+--------+ + Encounter Details +--------+ + + + + | Date | Type | Department | Care Team | Description | +--------+ + + + + | 06/23/ | Telephone | [facility] | Sofie Sneed MD | Other | | 2017 | | MED CTR SLEEP | [address] | | | | | CENTER [address] | [place] | | | | | [place], [place] | [address] | | | | | [address] | | | | | | [phone] | | | +--------+ + + + [...] this encounter Miscellaneous Notes Telephone Encounter - Yessica Arredondo, Mangle Roller - 06/23/2018 3:38 PM PDTPatient ca llalexandrea stating he wanted to cancel the in lab sleep study. Stating his sleep has some how impr lucía. Patient was notified order would be canceled and would be notified. Emily babin signed by Yessica Arredondo, Mangle Roller at 06/23/2018 3:40 PM PDTdocumented in thi s encounter Plan of Treatment [...] PATRICK | | | | | | [id number] | | | | | | | | +--------+ + + + + | 04/16/ | Office | Cardiology | Alin Anderson | | | 2019 | Visit | | MD [address] | | | | | | [address] | | | | | | [place] [address] | | | | | | [phone] | | | | | | | [...] [place] | | | | | | [address] | | | | | | | | +--------+ + + + + documented as of this encounter Visit Diagnoses Not on filedocumented in this encounter"
--- OUTSIDE RECORDS SUMMARY | ~2020-03-04 | XMS | Encounter Summary ---
Demographics + + + | Address | [address] | | | [place] [address] | + + + | Home Phone [...] [place] | | | | | [address] | | + + + + + Care Team Providers + +------+ + | Care Planishing Hammer Operator Name | Role | Phone | + +------+ + | Amy Olivares MD | PCP | | + +------+ + Reason for Visit +--------+--------+ + | Reason | Onset | Comments | | | Date | | +--------+--------+ + | Other | 06/07/ | | | | 2018 | | +--------+--------+ + Encounter Details +--------+ + + + + | Date | Type | Department | Care Team | Description | +--------+ + + + + | 06/07/ | Telephone | [facility] [place] | [place], | Other | | 2019 | | NEPHROLOGY [address] | [address] | | | | | [address] | [address] | | | | | [place], [place] | [address] [place], [place] | | | | | [address] | [address] | | | | | [phone] | | | +--------+ + + + [...] this encounter Miscellaneous Notes Telephone Encounter - Lacho Mcghee ARNP - 06/07/2019 9:50 AM PDTSpoke with wallace ent to clarify the plan to stop metoprolol and recheck labs in 2 weeks. He will notify our o ffice if blood pressure does not improve. He agrees to plan. documented in this encounter Plan of Treatment [...] PATRICK | | | | | | [phone] | | | | | | | | +--------+ + + + + | 04/16/ | Office | Cardiology | Alin Anderson | | 2019 | Visit | | MD [address] | | | | | | [address] | | | | | | [place] [address] | | | | | | [phone] | | | | | | | [...] [place] | | | | | | [address] | | | | | | | | +--------+ + + + + documented as of this encounter Visit Diagnoses Not on filedocumented in this encounter"
--- OUTSIDE RECORDS SUMMARY | ~2020-03-04 | XMS | Encounter Summary ---
Demographics + + + | Address | [address] | | | [place] [address] | + + + | Home Phone [...] [place] | | | | | [address] | | + + + + + Care Team Providers + +------+ + | Care Regional Tanker Truck Driver Name | Role | Phone | + [...] | Services | Rehabilitatio | Coronary | MD Randy | | | | Required | n | artery | [address] | Rehabilitatio | | | | | disease | [address] | n [address] | | | | | involving | [place], | [place] | | | | | [place] | [place] [address] | [place], [place] | | | | | coronary | Phone: | [phone] | | | | | artery of | [phone] | Phone: | | | | | red [place] heart | Fax: | [phone] | | | | | without | [phone] | Fax: | | | | | angina | | [phone] | | | | | pectoris | | | | | | | Acute on | | | | | | | chronic | | | | | | | systolic | | | | | | | congestive | | | | | | | heart | | | | | | | failure | | | | | | | (HCC) | | | | | | | Procedures | | | | | | | CT | | | | | | | [...] | +--------+ + + + + | 07/23/ | Orders Only | [facility] [place] | Randy Figueroa, | Coronary artery | | 2018 | | CARDIOLOGY [address] | [address] [facility] | disease involving | | | | [place], | [place], | red [place] coronary | | | | [place] [address] | [place] [address] | artery of [place] | | | | [phone] | [phone] | heart without angina | | | | | | pectoris (Primary | | | | | | Dx); Acute on | | | | | [...] [place]RICK | | | | | | 628472 | | | | | | | | +--------+ + + + + | 04/16/ | Office | Cardiology | Alin Anderson | | | 2019 | Visit | | MD [address] | | | | | | [address] | | | | | | [place] [address] | | | | | | [phone] | | | | | | | | +--------+ + + + + | 04/16/ | Procedure | Cardiology | | | | 2019 | visit | | | | +--------+ + + + + | 04/25/ | Office | Cardiology | Rocio Pearl, | | | 2019 | Visit | | [address] | | | | | | [address] [place], [place] | | | | | | [address] | | | | | | | | +--------+ + + + + + + +--------+ + + | Name | Type | Priori | Associated Diagnoses | Order Schedule | | | | ty | | | + + +--------+ + + | Referral to Cardiac | Outpatient | Routin | Coronary artery | 1 Occurrences | | Rehab | Referral | e | disease involving | starting 07/27/2018 | | | | | [place] coronary | until 07/27/2019 | | | | | artery of [place] | | | | | | heart without angina | | | | | | pectoris Acute on | | | | | | chronic systolic | | | | | | congestive heart | | | | | | failure (HCC) | | + + +--------+ + + documented as of this encounter Visit Diagnoses + + | Diagnosis | + + | Coronary artery disease involving [place] coronary artery of [place] heart without | | angina pectoris - Primary | + + | Acute on chronic systolic congestive heart failure ([facility]) Acute on chronic systolic | | heart failure | + + documented in this encounter"
--- OUTSIDE RECORDS SUMMARY | ~2020-03-04 | XMS | Encounter Summary ---
Demographics + + + | Address | [address] | | | [place] [address] | + + + | Home Phone [...] [place] | | | | | [address] | | + + + + + Care Team Providers + +------+ + | Care Disaster Response Director Name | Role | Phone | [...] + | 06/06/ | Implant | [facility] | Randy Figueroa, | Implantable | | 2017 | Monitor | CARDIOLOGY [address] | [facility] | defibrillator | | | | [place], | [place], | reprogramming/check | | | | [place] [address] | [place] [address] | (Primary Dx); VOCAL ARTIST-D | | | | [phone] | [phone] | (AICD) Medtronic | | | | | | 10/16/17 [facility] Wilner; | | | | | | [...] (H CC); Ischemic cardiomyopathyDate of Remote Interrogation: 05/31/18 Refer to Paceart documentation and remote PDF scanned into [facility] for remote interrogation re sults. Data collected by Kelly Rodriguez RN Presenting rhythm: sinus rhythm biventricular paced between 77-78 beats. 0 mode switch episodes accounting for 0.0% of the time. 0 atrial high rate episodes. 65 treated ventricular high rate episodes. The longest occurred 05/01/18 at 8:59 PM for 31 seconds. Available EGM is consistent with ventricular tachycardia with rate 200-210 beats successfully treated with ATP. 82 non-sustained high ventricular rate episodes. Biventricular pacing 97.7% PVC singles 19.8/hour PVC runs 2.7/hour Histogram bimodal. Battery longevity 9.4 years. Apparent normal and [...] | | | | | [facility] | | | | | | [address] [place] | | | | | | [address] | | | | | | | | +--------+ + + + + | 04/16/ | Office | Cardiology | Alin Anderson | | | 2019 | Visit | | MD Cheryl Arreguin | | | | | | [address] | | | | | | [place] [address] | | | | | | [phone] | | | | | | | [...] [place] | | | | | | [address] | | | | | | | [...] results section. | | | | | VOCAL ARTIST-D (AICD) | | | | | | [...] Randy | PACEGLYNN | | MD [place] 06/11/2018 6:15Date of Remote Interrogation: | | | 05/31/18 Refer to Paceart documentation and remote PDF scanned into | | | [facility] for remote interrogation results. Data collected by Kelly Samuel | | | ALFONSO Rodriguez Presenting rhythm: sinus rhythm biventricular paced between | | | 77-78 beats.0 mode switch episodes accounting for 0.0% of the time.0 | | | atrial high rate episodes. 65 treated ventricular high rate | | | episodes. The longest occurred 05/01/18 at 8:59 PM for 31 seconds. | | | Available EGM is consistent with ventricular tachycardia with rate | | | 200-210 beats successfully treated with ATP. 82 non-sustained high | | | ventricular rate episodes.Biventricular pacing 97.7%PVC singles | | | 19.8/hourPVC runs 2.7/hourHistogram bimodal. | | | Battery longevity 9.4 years.Apparent normal and stable device | | | function.Device interrogation due in office in March 2019. | | |treated with ATP. | | |82 non-sustained high ventricular rate episodes. | | |Biventricular pacing 97.7% | | |PVC singles 19.8/hour | | |PVC runs 2.7/hour | | |Histogram bimodal. Battery longevity 9.4 years. | | |Apparent [...] implantable cardiac defibrillator | + + | VOCAL ARTIST-D (AICD) Medtronic 10/16/17 [facility] Darby | + + | Congestive heart failure, unspecified HF chronicity, unspecified heart failure type | | (HCC) | + + | Ischemic cardiomyopathy Other specified forms of chronic ischemic heart disease | + + documented in this encounter"
--- OUTSIDE RECORDS SUMMARY | ~2020-03-04 | XMS | Encounter Summary ---
Demographics + + + | Address | [address] | | | [place] [address] | + + + | Home Phone [...] [place], [place] | | | | | [address] | | + + + + + Care Team Providers + +------+ + | Care Plant Electrician Name | Role | Phone | + [...] + | 10/07/ | Telephone | [facility] | Jenny, | Blood Pressure | | 2018 | | CARDIOLOGY [address] | [place] SLIP FEEDER [address] | | | | | [place], | [place], | | | | | [place] [address] | [place] [address] | | | | | [phone] | [phone] | | | | | | | [...] 50m g twice daily. He states that [place] increased him to 100mg twice daily previously [...] looks good. Advanced h eart failure from [place] wanted him to continue increasing Metoprolol dose. [...] 108/68 67 110/65 75 09/30/18 115/68 70 93325 78 10/01/18 112/67 75 112/65 76 10/02/18 [...] [place] | | | | | | [address] | | | | | | | | +--------+ + + + + | 04/16/ | Office | Cardiology | Alin Anderson | | | 2019 | Visit | | MD Cheryl Arreguin | | | | | | [address] | | | | | | [place] [address] | | | | | | [phone] | | | | | | | [...] [place] | | | | | | [address] | | | | | | | | +--------+ + + + + documented as of this encounter Visit Diagnoses Not on filedocumented in this encounter"
--- OUTSIDE RECORDS SUMMARY | ~2020-03-04 | XMS | Encounter Summary ---
Demographics + + + | Address | [address] | | | [place] [address] | + + + | Home Phone [...] [place], [place] | | | | | [address] | | + + + + + Care Team Providers + +------+ + | Care Talent Acquisition Administrator Name | Role | Phone | [...] | Cardiac | Diagnoses | [place], | [facility] | | | Services | Rehabilitatio | Ischemic | MD Randy | | | | Required | n | cardiomyopat | [address] | Rehabilitatio | | | | | hy | [address] | [address] | | | | | Procedures | [place], | [place] | | | | | [place] | [place] [address] | [place], [place] | | | | | OUTPATIENT | Phone: | [phone] | | | | | CARDIAC | [phone] | Phone: | | | | | REHAB W/O | Fax: | [phone] | | | | | CONT ECG | [phone] | Fax: | | | | | MONITOR | | [phone] | +--------+ + + + + + Encounter Details +--------+---------+ + + + | Date | Type | Department | Care Team | Description | +--------+---------+ + + + | 11/11/ | Office | [facility] | Randy Figueroa, | Ischemic | | 2018 | Visit | MED CTR CARDIAC | MD [address] [place] | cardiomyopathy | | | | REHABILITATION [address] [place], | | | | | [address] [place] | [place] [address] | | | | | [place] [address] | [phone] | | | | | [phone] | | | | | | | [...] Notes Maria Esther Fields RN - 11/11/2017 12:00 PM PST [facility] C[facility] RE[facility]ATION [address] [facility] [address] Cardiac Rehab Evaluation Date: 11/11/2017 Patient Information Patient Name: Bob Will Date of : 1955 Age: 62 y.o. Referring Provider: Randy Figueroa MD Encounter Diagnoses Code Name Primary? I25.5 Ischemic cardiomyopathy Cardiac Rehab Phase II Leon atment Plan Bob Will is a 62 y.o. 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 11/11/17 At his cardiology appointment [...] was 106/70. His was co hardeep from [place] to follow him home. He waited in [...] conversation they appear to have good comprehension. Krames: Living Well with Congestive Heart Failue book [...] Healthy Dietary Education Date: 11/11/17 -Referral to Multimedia Manager: Date: -DVD: Healthy Eating For Life Date: [...] ice cream and cheese. Agrees to exercise da ily. Niharika zuniga Mellitus History of diabetes: No- but was put on glucophage Treatment: Last hemoglobin A1C: Value: 5.9 Date: 10/11/17 Interventions -Evaluate blood sugar pre- and post- exercise until stable. Date: Range: -Referral to Equity Manager Date: Education Points listed below- Date [...] Fields RN, 11/11/2017 12:53 Patient Name: Bob Will/: 1955/ signed by Randy Figueroa MD at 11/15/2017 7:25 PM PDTdocumented in this encounter Plan of [...] | | | | [address] [place] | | | | | | [address] | | | | | | | | +--------+ + + + + | 04/16/ | Office | Cardiology | Alin Anderson | | | 2019 | Visit | | MD [address] | | | | | | [address] | | | | | | [place] [address] | | | | | | [phone] | | | | | | | [...] [place] | | | | | | [address] | | | | | | | | +--------+ + + + + documented as of this encounter Visit Diagnoses + + | Diagnosis | + + | Ischemic cardiomyopathy Other specified forms of chronic ischemic heart disease | + + documented in this encounter
--- OUTSIDE RECORDS SUMMARY | ~2020-03-04 | XMS | Encounter Summary ---
Demographics + + + | Address | [address] | | | [place] [address] | + + + | Home Phone [...] + + | Author | [facility] | | | and [place] | + + + | Organization | [facility] [...] [place], [place] | | | | | [address] | | + + + + + Care Team Providers + +------+ + | Care Driller Multiple Spindle Name | Role | Phone | + +------+ + PCP | Unavailable | + +------+ + Reason for Visit + +--------+ + | Reason | Onset | Comments | | | Date | | + +--------+ + | Blood Pressure | 02/03/ | | | | 2018 | | + +--------+ + Encounter Details +--------+ + + + + | Date | Type | Department | Care Team | Description | +--------+ + + + + | 02/03/ | Telephone | [facility] | Jenny, | Blood Pressure | | 2017 | | CARDIOLOGY [address] | [place] DISEASE CONTROL INSPECTOR [address] | | | | | [place], | [place], | | | | | [place] [address] | [place] [address] | | | | | [phone] | [phone] | | | | | | | [...] Telephone Encounter - Suzanne Cheng RN - 02/05/2018 3:22 PM PDTPatient notified, mariah jarrell is ok, "comes and goes", he had an episode last night, doing well today. [facility] at [facility] for when he needs it. Swelling in legs is about the same, does not look to swollen ...........................................Suzanne mcduffie RN on 02/05/18 at 15:27 elephone EncounHansa El ARNP - 02/04/2018 3:53 PM PDTContinue same meds. Please ask if deidra athing okay? Any changes in leg swelling? Electronically signed by: ADARSH Stevens 02/04/2018 15:53 elephone Franny Benton CMA - 02/03/2018 1:20 PM PDTFormatting of this note might be d ifferent from the original. Next Visit:03/18/18 Blood pressure log received from patient as follows:01/15/18---01/28/18 Medication Change: Start furosemide 20mg one a day Date BP AM Pulse AM BP PM Pulse PM 01/15/18 110/76 77 115/78 77 01/16/18 112/76 78 103/65 66 01/17/18 120/77 78 110/78 78 01/18/18 110/78 75 110/78 77 01/19/18 120/78 78 120/77 77 01/20/18 118/78 77 118/78 78 01/21/18 120/78 77 118/78 78 01/22/17 118/76 77 118/77 78 01/23/18 120/77 78 120/77 76 01/24/18 120/77 78 120/77 76 01/25/18 11/77 77 118/78 76 01/26/18 116/76 77 118/76 76 01/27/18 118/77 78 120/78 78 01/28/18 120/77 78 118/78 78 Additional Comments: documented in this encounter [...] PATRICK | | | | | | [address] | | | | | | | | +--------+ + + + + | 04/16/ | Office | Cardiology | Alin Anderson | | | 2019 | Visit | | MD [address] | | | | | | [address] | | | | | | [place] [address] | | | | | | [phone] | | | | | | | [...] [place] | | | | | | [id number] | | | | | | | | +--------+ + + + + documented as of this encounter Visit Diagnoses Not on filedocumented in this encounter
--- OUTSIDE RECORDS SUMMARY | ~2020-03-04 | XMS | Encounter Summary ---
Demographics + + + | Address | [address] | | | [place] [address] | + + + | Home Phone [...] [place] | | | | | [address] | | + + + + + Care Team Providers + +------+ + | Care Contact Centre Supervisor Name | Role | Phone | [...] Description | +--------+---------+ + + + | 08/30/ | Office | [facility] | Amy Olivares V, | Chronic systolic CHF | | 2019 | Visit | MED CTR CARDIAC | [address] | (congestive heart | | | | REHABILITATION [address] | [address] [place], [place] | failure) ([facility]) | | | | [address] | [address] | | | | | [place] [address] | | | | | | [phone] | | | +--------+---------+ + + + [...] of this encounter Progress Gael Ortega - 08/30/2019 8:45 AM PST [facility] CARDIAC REHABILITATION [address] [facility] [address] Cardiac Rehab Date: 08/30/2019 Patient Information Patient Name: Bob Will Date of : 1955 Age: 63 y.o. Encounter Diagnoses Code Name Primary? I50.22 Chronic systolic CHF (congestive heart failure) ([facility]) Number of Visits Approved: 34 kx Taken Medications Today? Yes Any Changes in Medications? No Any Problems to Report? No Pain level? 7/10, leg Ventricular paced rhythm without ectopy. Pre O2: 96%, Durin%, SBP prior to exercise 88 /56; post B/P 92/50. Compliant with medications and therapeutic lifestyle changes. Continue monitored exercise.. Any abnormal vital signs or rhythm strips will be reported in progress note. Electronically signed by: Gael Woo, 08/30/2019 12:16 PM Patient Name: Bob Will/: 1955/ ly signed by Gael Woo at 08/30/2019 1:33 PM PSTdocumented in this encounter Plan of [...] [place]ICK | | | | | | [id number] | | | | | | | | +--------+ + + + + | 04/16/ | Office | Cardiology | Alin Anderson | | | 2019 | Visit | | MD [address] | | | | | | [address] | | | | | | [place] [address] | | | | | | [phone] | | | | | | | [...] [place] | | | | | | [address] | | | | | | | | +--------+ + + + + documented as of this encounter Visit Diagnoses + + | Diagnosis | + + | Chronic systolic CHF (congestive heart failure) (HCC) | + + documented in this encounter"
--- OUTSIDE RECORDS SUMMARY | ~2020-03-04 | XMS | Encounter Summary ---
Demographics + + + | Address | [address] | | | [place] [address] | + + + | Home Phone | | + + + | Preferred Language | Unknown | + + + | Marital Status | | + + + | Yazdanism Affiliation | NRP | + + + | Race | White | + + + | Ethnic Group | Not or | + + + Author + + + | Author | [facility] | + + + | Organization | [facility] | + + + | Address | Unknown | + + + | Phone | Unavailable | + + + Support + + + + + | Name | Relationship | Address | Phone | + + + + + | Venice Mckeon | ECON | [address] | | | | | [place] [address] | | + + + + + Care Team Providers + +------+ + | Care Lead Cashier Name | Role | Phone | + [...] | NSTEMI | Lala A, | [facility] | | | | | (non-ST | PA-C [address] | [address] | | | | | elevated | [address] | [address] | | | | | myocardial | [address] | Mailcode: | | | | | infarction) | Rd | [facility] | | | | | (HCC) | [place], [place] | for [facility] | | | | | Stenosis of | [address] | and Healing, | | | | | coronary | Phone: | [address] | | | | | artery | [phone] | [place], [place] | | | | | stent, | Fax: | [address] | | | | | initial | [phone] | Phone: | | | | | encounter | | [phone] | | | | | Procedures | | Fax: | | | | | CONSULT TO | | [phone] | | | | | CARDIAC | [...] + + | 10/10/ | Hospital | [address] | Khurram Bedoya | | | 2018 - | Encounter | [address] | MD Kari [address] | | | | | [address] [place] [address] | [address] | | | 10/17/ | | [place], [place] | [place] | | | 2018 | | [address] | [address] | | | | | [phone] | [phone] | | | | | | | [...] Referring Physician & Institution: Other Dictation Primary/Outpatient Automotive Software Engineer: Dr Jamal Guerrero MD Inpatient Attending Physician: Khurram Bedoya MD Author/Discharging Provider: LALA SCHOFIELD PA-C Admission Date: 10/10/2017 Discharge Date: 10/17/2017 Active Hospital Problems 1) *NSTEMI (non-ST elevated myocardial infarction) (HCC) 2) Coronary artery disease 3) Stenosis of coronary artery stent 4) Ischemic cardiomyopathy 5) Chronic systolic congestive heart failure (HCC) 7) Encounter for insertion of cardiac resynchronization therapy defibrillator (GROCERY CASHIER-D) 8) Paroxysmal atrial flutter (HCC) 9) Influenza, pneumonia 10) Prediabetes 11) Tobacco use Procedures 10/15/17: Successful percutaneous coronary intervention to the ostial left circumflex. One 3.0 x 18 mm Resolute Salisbury drug-eluting stent. Successful percutaneous coronary transluminal angiopla sty of the distal left main extending into the left anterior descending coronary artery with final kissing balloon inflation with a 3.5 mm noncompliant and a 2.5 mm compliant balloon. 10/16/17: 1) EP study with VT induction 2) GROCERY CASHIER-D implantation Reason For Admission: Consideration of complex PCI vs CABG for in-stent restenosis of LCx and LM/LAD stents Hospital Course: Please see H&P for hospital course at [facility] prior to transfer to [facility]. Ron Mckeon is a 61 year old [...] treatment who was admitted in transfer from [facility] on 10/11 for consideration of PCI vs [...] one 3.0 x [address] ug-eluting stent placed in ostial L [...] 10/16. VT was induced, therefor e a GROCERY CASHIER-D was implanted. He is discharging home in good condition with follow up in 1 week w ith his Automotive Software Engineer. The following problems were addressed this hospitalization: [...] uenza and underwent a coronary angiogram at [facility] which revealed in stent re-stenosis of both LM into LAD and LCx stents, mild disease of RCA. Transferred to [facility] for further onel luation. CTS was consulted for consideration of CABG vs complex PCI. Due to nonviable myocardium archie wn on cardiac PET and resting NM perfusion study, PCI was chosen over CABG. On 10/15 he underw ent angiography/PCI with impella support--had one 3.0 x 18 mm Resolute Salisbury drug-eluting chery nt placed in ostial L [...] II, Stage C. Etiology ischemic. TTE at [facility] showed EF 30-35%, mildly reduced RV function, [...] the past --ICD: placed by EP 10/16, GROCERY CASHIER-D -- will need 1 week f/u for wound check, then 1 month device check with EP -- f/u with outpatient web marketing coordinator 2-4 weeks # Paroxysmal Aflutter Noted Aflutter with RVR at admission in [facility]; treated with amiodarone infusion. He w as transitioned to oral amiodarone and maintained normal rhythm. Given that the aflutter occ urred in setting of severe sepsis, will not continue amiodarone or warfarin. If he has recur rent arrhythmia, this will be noted on GROCERY CASHIER-D and could consider anticoagulation at that time . However, he requires DAPT and has a possible history of recent GIB, so triple therapy shou ld be avoided if not necessary --rate control: metoprolol as above --anticoagulation: holding warfarin for now given DAPT and h/o GI B. Discuss further with outpatient web marketing coordinator. May consider holding anticoagulation unless he demonstrates recurrent arrhythmia # Influenza type A - resolved # Community acquired pneumonia # Severe sepsis with shock, resolved Pt presented to [facility] 10/03 found to be Flu Apositive with [...] sepsis management , fluid resuscitation. EGD at [facility] on 10/05 showed gastritis, duodenitis, linear ulcerations [...] first post-hospitalization visit: 1. Wound check from GROCERY CASHIER-D placement 2. Consider restarting lisinopril if BPs improve and Cr is stable 3. Instructed pt to restart metformin on 08/18 but reevaluate based on Cr Schedule the following appointment(s) when you get home KULWINDER Stevens. Go on 10/19/2017. Why: at 1:15pm for heart failure follow up, to re-check labwork, and to have your wound ch ecked Contact information HEART [address] [address] KULWINDER Stevens. Go on 11/11/2017. Why: at 9:30am for cardiology follow up and to have your device checked Contact information HEART [address] [address] Medication List START taking these medications Childrens [...] Resume on 10/19. Indications: type 2 diabetes [facility] metoprolol succinate 25 mg Tb24 Commonly [...] 0%. 8.Stent: 3.0 x 18 mm Resolute Salisbury drug-eluting stent. Lesion #2: 1.Lesion location: Distal [...] circumflex. One 3.0 x 18 mm Resolute Salisbury drug-eluting stent. Successful percutaneous coronary transluminal angiop [...] ths. You should be cleared by your web marketing coordinator prior to returning to driving. If you [...] How to Contact us: Cardiology Division Office [phone] Cardiology Patient Phone Line EDU[address] Dr[address] Dr., Dr., PA-C Connie Barber, CHRISTA Salgado, ALFONSO Yung RN Evenings or weekends: Ask for on-call web marketing coordinator Drug Eluting Stent 1. Please take Plavix (clopidogrel) everyday which helps to keep the stent open. You need t o take it every day for one year and do not stop unless you are told to by your web marketing coordinator . 2. Take an aspirin 81 mg once daily indefinitely. 3. You were referred for cardiac rehab and should start now that you have had a stent place d. 4. Follow up with your web marketing coordinator within 2-4 weeks. 5. No elective surgeries [...] smoker.Patient counseled on importance of smoking cessation [facility] Last vitals: BP: 101/65 (10/17/17 1144) Pulse: 80 (10/17/17 1144) Resp: 18 ( 1144) Weight: 88.4 kg (194 lb 14.2 oz) (10/17/17 0221) Discharging Provider: LALA SCHOFIELD PA-C, Cardiovascular Medicine Attending Physician: hKurram Bedoya MD, Cardiovascular Medicine Lala Schofield PA-C Instructor of Cardiovascular Medicine [facility] Cardiovascular [place] [facility] [place] I spent 36 minutes in coordination of care and nhuk-tc-ckwk with the patient and/or their s urrogate in which the problems above were discussed Associated attestation - Khurram Bedoya MD - 10/17/2017 3:22 PM PSTCardiology [facility] I have seen and examined Mr. Mckeon and discussed the patient's management with [facility]. I reviewed the practitioner's note above and agree with the documented f indings and plan of care. KHURRAM BEDOYA MD Director of the [facility] Hypertrophic Cardiomyopathy Diesel Engineer of Echocardiography Slot Service Specialistautomotive design layout drafter Division of Cardiovascular Medicine documented in this encounter Discharge Instructions AttachmentsThe following attachments cannot be sent through Care Everywhere.WOUND CHECK (EN GLISH)ICD (IMPLANTABLE CARDIOVERTER-DEFIBRILLATOR): POST-OP (CROATIAN)PAIN POST-SURGERY: ACUT E (CROATIAN)OPIOIDS: SAFE USE (CROATIAN)OPIOIDS: STORAGE AND DISPOSAL: GENERAL INFO (CROATIAN)d ocumented in this encounter Medications at Time [...] Information: Implant date: 10/16/17 BiV-ICD pulse generator: Cutlet Maker Pork: MedEmpressr Model number: [id number] Serial number: [id number] RA lead: Cutlet Maker Pork: Medtronic Model number: [id number] Serial number: [id number] RV lead: Cutlet Maker Pork: Medtronic Model number: [id number] Serial number: [id number] CS lead: Cutlet Maker Pork: Medtronic Model number: [id number] Serial number: [id number] ICD PROGRAMMING: Bradycardia Parameters: Mode: DDD Lower rate limit: 50 Upper rate limit: 130 Output (A): 3.5 V at 0.4 ms Sensitivity (A): 0.3 mV Output (RV): 3.5 V at 0.4 ms Sensitivity (RV): 0.3 mV Output (CS): 2.0 V at 0.4ms Tachycardia Parameters: VT zone: 177-200 Therapies: Monitor VF zone: >200 bpm Therapies: 35 J x 6 PACING PERCENTAGE: AP: <0.1% INTELLIGENCE SUPPORT OFFICER: 98.3% EPISODES SINCE IMPLANT: none. TODAY'S TESTING [...] and Device check in one month at [facility] device clinic. I have reque sted our [...] MD Electrophysiology Fellow Division of Cardiovascular Medicine [facility] Pager [phone] signed by Lauro Jorgensen MD at 10/18/2017 [...] follow up. Lauro Jorgensen M.D. Director, Electrophysiology Planner Internshipmoney manager [facility] [place] [address] Amarilis Castle MD - 10/17/2017 10:53 AM [...] hs. You should be cleared by your web marketing coordinator prior to returning to driving. ? If [...] through the full body scanner at the [facility], but only after 6 weeks post defibrillator [...] How to Contact us: Cardiology Division Office [phone] Cardiology Patient Phone Line EDU[address] [...] 1) EP study with VT induction 2) GROCERY CASHIER-D Indication for the procedure: Ischemic cardiomyopathy with [...] MD Electrophysiology Fellow Division of Cardiovascular Medicine [facility] Pager [phone] ala Schofield PA-C - 10/16/2017 2:07 PM PST IP Cardiology Progress Note Date: 10/16/2017 Hospital Day: 6 Attending Automotive Software Engineer: Khurram Bedoya MD Provider: LALA SCHOFIELD PA-C Primary Care Provider: Chato Matson MD Outpatient Automotive Software Engineer: Dr Jamal Guerrero MD ID:Ron Mckeon is a 61 year old male with past medical history of CAD s/p anterior CHERY SC 03/2017 with cardiogenic shock s/p PCI with ANY to LM/LAD and LCx with ECMO support, systo lic heart failure (EF 20-25%), ischemic cardiomyopathy, hypertension, Atrial flutter, prior tobacco use, recent JAVON thrombus on anticoagulation, Influenza A with septic shock (10/03) re quiring intubation and mechanical ventilation, HAP on treatment who was admitted in transfer from [facility] on 10/11 for consideration of PCI vs [...] cannot appreciate murmur and sounds regular. J INTELLIGENCE SUPPORT OFFICER not above clavicle at 90 degrees Gastrointestinal: [...] found for: FREET4, TSH, TPOAB, THYROGLOB, THYROGLOBAB, [id number] Lab Results Component Value Date A1C 5.9 [...] 8. Stent: 3.0 x 18 mm Resolute Salisbury drug-eluting stent. Lesion #2: 1. Lesion location: [...] uenza and underwent a coronary angiogram at [facility] which revealed in stent re-stenosis of both LM into LAD and LCx stents, mild disease of RCA. Transferred to [facility] for further onel luation. CTS was consulted [...] II-III, Stage C. Etiology ischemic. TTE at [facility] showed EF 30-35%, mildly reduced RV function, [...] check with EP -- f/u with outpatient web marketing coordinator 2-4 weeks # Paroxysmal Aflutter Noted Aflutter with RVR at admission in [facility]; treated with amiodarone infusion. Now maintaining SR on oral amio. CHADS-VASC 3, HAS-BLED 3. Was previously on heparin infusion fo r NSTEMI but this has been stopped and AC was not started in anticipation of PCI. --rate control: carvedilol as above --rhythm control: continue amiodarone 200 mg daily for now, to be reassessed b y outpatient web marketing coordinator --anticoagulation: holding warfarin for now given DAPT and h/o GIB. Discuss fu rther with outpatient web marketing coordinator. May consider holding anticoagulation unless he demonstra janeth recurrent arrhythmia # Influenza type A - resolved # Community acquired pneumonia # Severe sepsis with shock, resolved Pt presented to [facility] 10/03 found to be Flu A positive [...] sepsis management , fluid resuscitation. EGD at [facility] on 10/05 showed gastritis, duodenitis, linear ulcerations [...] patient was interviewed and examined by attending web marketing coordinator, Dr. Khurram Bedoya MD , who is in agreement with above described findings, assessment and plan. LALA SCHOFIELD PA-C Cardiovascular Medicine [facility] Pager [phone] I spent 36 minutes in coordination of care and dklw-fo-xzpw with the patient and/or their surrogate in [...] Intake/Output Summary (Last 24 hours) at 10/15/17 191 Last data filed at 10/15/17 1807 Gross [...] current post-cath car e. JOHN AMAYA MD [address] [facility] [address] [place] [address] Ruth Ann Aguilar PA-C - [...] circumflex. One 3.0 x 18 mm Resolute Salisbury drug-eluting stent. Successful percutaneous coronary transluminal angiopla [...] 10/13/17 and the study was read showin g that "extensive severe perfusional defect involving approximately 40% of the left ventricu lar myocardium with severe wall motion abnormality and ejection fraction of 24%". Dr. Zandra viy and Dr. Darby reviewed these results yesterday [...] circ and LAD. EPS v-stim with possible GROCERY CASHIER-D tomorrow (QRS today is 152 atypical LB BB). See yesterdays attestation Sophie Darby MD Cardiovascular Medicine - Electrophysiology [facility] Cardiovascular [place] at [facility] Arya Low MD - 10/15/2017 1:05 PM PSTCARDIOLOGY PRELIMINARY PROCEDURE NOTE Primary Care Provider: Chato Matson MD Referring Provider: Other Dictation Tugboat Dispatcher Staff: Tejal Modi M.D. Procedure(s): 1. Coronary angiography 2. Percutaneous coronary intervention 3. Left heart catheterization 4. Impella placement and removal 5. Moderate conscious sedation Indications: Unstable angina, planned LM intervention Access: 14-Tuvaluan RFA 6-Tuvaluan RFV 7-Tuvaluan LFA Post Procedure Access: No evidence of significant hematoma or bleeding Estimated Blood Loss: 50 mL Medications: Fentanyl 100 mcg Route: IV Heparin 8500 units Route: IV Midazolam 3 mg Route: IV Contrast: Omnipaque 110 mL Findings: Severe distal LM into LAD ISR Severe ostial LCx ISR Intervention: PCI with one 3.0 x 18 mm Resolute Salisbury ANY Complications: None Hemostasis: Perclose Recommendations: Return [...] Note Date: 10/15/2017 Hospital Day: 5 Attending Automotive Software Engineer: Khurram Bedoya MD Provider: LALA SCHOFIELD PA-C Primary Care Provider: Chato Matson MD Outpatient Automotive Software Engineer: Dr Jamal Guerrero MD ID:Ron Mckeon is a 61 year old male with past medical history of CAD s/p anterior CHERY SC 03/2017 with cardiogenic shock s/p PCI with ANY to LM/LAD and LCx with ECMO support, systo lic heart failure (EF 20-25%), ischemic cardiomyopathy, hypertension, Atrial flutter, prior tobacco use, recent JAVON thrombus on anticoagulation, Influenza A with septic shock (10/03) re quiring intubation and mechanical ventilation, HAP on treatment who was admitted in transfer from [facility] on 10/11 for consideration of PCI vs [...] cannot appreciate murmur and sounds regular. J INTELLIGENCE SUPPORT OFFICER not above clavicle at 90 degrees Gastrointestinal: [...] found for: FREET4, TSH, TPOAB, THYROGLOB, THYROGLOBAB, [id number] Lab Results Component Value Date A1C 5.9 [...] uenza and underwent a coronary angiogram at [facility] which revealed in stent re-stenosis of both LM into LAD and LCx stents, mild disease of RCA. Transferred to [facility] for further onel luation. CTS was consulted for consideration of CABG vs complex PCI. Due to nonviable myocardium archie wn on cardiac PET and resting NM perfusion study, he will proceed with PCI tomorrow with Imp tania support. -- to lab tech today for PCI with impella support --ASA [...] II-III, Stage C. Etiology ischemic. TTE at [facility] showed EF 30-35%, mildly reduced RV function, [...] Noted Aflutter with RVR at admission in [facility]; treated with amiodarone infusion. Now maintaining SR [...] sepsis with shock, resolved Pt presented to [facility] 10/03 found to be Flu A positive [...] sepsis management , fluid resuscitation. EGD at [facility] on 10/05 showed gastritis, duodenitis, linear ulcerations [...] patient was interviewed and examined by attending web marketing coordinator, Dr. Khurram Bedoya MD , who is in agreement with above described findings, assessment and plan. LALA SCHOFIELD PA-C Cardiovascular Medicine [facility] Pager [phone] I spent 38 minutes in coordination of care and ajaz-cd-rxxc with the patient and/or their surrogate in which the following was discussed: plan for PCI with impella support today, hea rt failure, anticoagulation for aflutter, discharge planning Associated attestation - Khurram Bedoya MD - 10/15/2017 1:15 PM PSTCardiology Attendi libby I have seen and examined Mr. Mckeon and discussed the patient's [facility]. I reviewed the practitioner's note above and agree with the documented f indings and plan of care. KHURRAM BEDOYA MD Director of the [facility] Hypertrophic Cardiomyopathy Diesel Engineer of Echocardiography Slot Service Specialistautomotive design layout drafter Division of Cardiovascular Medicine Ruth Ann Carvajal [...] thickening is segmentally abnormal. 10/03/17: TTE @ [facility] Summary The number of aortic valve [...] remain. 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 Given NSVT and EF 30-35%, we will therefore proceed to an EP study with implantation o f an ICD if she has inducible VT. Given atypical LBBB QRS 147 and current functional status 3 (prior 1-2 by report) and concern for lack of EF recovery, we would plan for GROCERY CASHIER with His- bundle lead if needed. Sophie Darby MD Cardiovascular Medicine - Electrophysiology [facility] Cardiovascular [place] at [facility] Lala Schofield PA-C - 10/14/2017 11:58 AM PSTFormatting of this note might be different f rom the original. IP Cardiology Progress Note Date: 10/14/2017 Hospital Day: 4 Attending Automotive Software Engineer: Khurram Bedoya MD Provider: LALA SCHOFIELD PA-C Primary Care Provider: Chato Matson MD Outpatient Automotive Software Engineer: Dr Jamal Guerrero MD ID:Ron Mckeon is a 61 year old male with past medical history of CAD s/p anterior CHERY SC 03/2017 with cardiogenic shock s/p PCI with ANY to LM/LAD and LCx with ECMO support, systo lic heart failure (EF 20-25%), ischemic cardiomyopathy, hypertension, Atrial flutter, prior tobacco use, recent JAVON thrombus on anticoagulation, Influenza A with septic shock (10/03) re quiring intubation and mechanical ventilation, HAP on treatment who was admitted in transfer from [facility] on 10/11 for consideration of PCI vs [...] Very t hankful of care provided at [facility] Current Inpatient Medications: acetaminophen (TYLENOL) tablet 650 [...] found for: FREET4, TSH, TPOAB, THYROGLOB, THYROGLOBAB, [id number] Lab Results Component Value Date A1C 5.9 [...] uenza and underwent a coronary angiogram at [facility] which revealed in stent re-stenosis of both LM into LAD and LCx stents, mild disease of RCA. Transferred to [facility] for further onel luation. CTS was consulted [...] II-III, Stage C. Etiology ischemic. TTE at [facility] showed EF 30-35%, mildly reduced RV function, [...] Noted Aflutter with RVR at admission in [facility]; treated with amiodarone infusion. Now maintaining SR [...] sepsis with shock, resolved Pt presented to [facility] 10/03 found to be Flu A positive [...] sepsis management , fluid resuscitation. EGD at [facility] on 10/05 showed gastritis, duodenitis, linear ulcerations [...] patient was interviewed and examined by attending web marketing coordinator, Dr. Khurram Bedoya MD , who is in agreement with above described findings, assessment and plan. LALA SCHOFIELD PA-C Cardiovascular Medicine [facility] Pager [phone] I spent 42 minutes in coordination of care and gvev-op-skvf with the patient and/or their s urrogate in which the following was discussed: results of nuc med and PET scan studies indic ating no viable myocardium and thus will plan for complex PCI tomorrow Associated attestation - Khurram Bedoya MD - 10/14/2017 9:29 PM PSTCardiology Attendi libby I have seen and examined Mr. Mckeon and discussed the patient's management with [facility]. I reviewed the practitioner's note above and agree with the documented f indings and plan of care. KHURRAM BEDOYA MD Director of the [facility] Hypertrophic Cardiomyopathy Diesel Engineer of Echocardiography Slot Service Specialistautomotive design layout drafter Division of Cardiovascular Medicine Ashleigh Alvarez ACNP - 10/13/2017 8:33 AM PSTFormatting of this note might be diff erent from the original. Cardiology Inpatient Progress Note Date: 10/13/2017 Hospital Day: 3 Primary Care Physician: Chato Matson MD Outpatient Automotive Software Engineer: Dr Jamal Guerrero MD Attending Automotive Software Engineer: Khurram Bedoya MD Provider: KULWINDER Grace ID: [...] who was admitted in transfe r from [facility] on 10/11 for consideration of PCI vs [...] found for: FREET4, TSH, TPOAB, THYROGLOB, THYROGLOBAB, [id number] Lab Results Component Value Date A1C 5.9 [...] exam dated, 03/30/2017, the LVEF is similar. [facility] CXR 10/11/17: FINDINGS: The increased lung volumes. [...] flow to distal LAD 10/03/17 Echo at [facility]: The number of aortic valve leaflets cannot [...] stents # NSTEMI Pt was admitted to [facility] 10/03 with hypoxemic respiratory failure, severe sepsis and s hock thought to be due to influenza type A as below. Noted to have new LBBB, NSTEMI with pea k trop 26. Underwent coronary angiogram at [facility] 10/04 which revealed in stent re-steno sis of both LM into LAD and LCx stents, mild disease of RCA. Transferred to [facility] for further evaluation. TTE showed LV function [...] for PCI ([facility]) which would require repeat bolus [...] II-III, Stage C. Etiology ischemic. TTE at [facility] showed EF 30-35%, mildly reduced RV function, mild dilation of ascending aorta. LVEDP 14 mm hg during catheterization 10/04 ( in setting of hypotension). Pt was diuresed at [facility], appears euvolemic on exam. Pt wa s [...] Noted Aflutter with RVR at admission in [facility], treated with amiodarone infusion, bertha alonzo SR [...] admitted with acute dyspnea, respiratory failure to [facility] 10/03 found to be Flu A p [...] sepsis management , fluid resuscitation. EGD at [facility] on 10/05 showed gastritis, duodenitis, linear ulcerations [...] patient was interviewed and examined by attending web marketing coordinator, Dr. Khurram Bedoya MD , who is in agreement with above described findings, assessment and plan. Ashleigh Alvarez, [facility] Instructor of Medicine [facility] Cardi[facility] [place] Pager [phone] I spent 33 minutes in coordination of care and [id number] with the patient and/or their s urrogate in which management of CAD, imaging plan and consultation with radiology, revascula rization treatment was discussed Associated attestation - Khurram Bedoya MD - 10/13/2017 2:48 PM PSTCardiology Attendi I have seen and examined Mr. Mckeon and discussed the patient's management with the [facility] practitioner. I reviewed the practitioner's note above and agree with the documented f indings and plan of care. KHURRAM BEDOYA MD Director of the [facility] Hypertrophic Cardiomyopathy Diesel Engineer of Echocardiography Slot Service Specialistautomotive design layout drafter Division of Cardiovascular Medicine Ashleigh Alvarez ACNP - 10/12/2017 8:02 AM PSTFormatting of this note might be diff erent from the original. Cardiology Inpatient Progress Note Date: 10/12/2017 Hospital Day: 2 Primary Care Physician: Chato Matson MD Outpatient Automotive Software Engineer: Dr Jamal Guerrero MD Attending Automotive Software Engineer: Khurram Bedoya MD Provider: KULWINDER Grace ID: [...] who was admitted in transfe r from [place] on 10/11 for consideration of PCI vs [...] found for: FREET4, TSH, TPOAB, THYROGLOB, THYROGLOBAB, [id number] Lab Results Component Value Date A1C 5.6 [...] exam dated, 03/30/2017, the LVEF is similar. [facility] CXR 10/11/17: FINDINGS: The increased lung volumes. [...] flow to distal LAD 10/03/17 Echo at [place]: The number of aortic valve leaflets cannot [...] stents # NSTEMI Pt was admitted to [facility] 10/03 with hypoxemic respiratory failure, severe sepsis and s hock thought to be due to influenza type A as below. Noted to have new LBBB, NSTEMI with pea k trop 26. Underwent coronary angiogram at [facility] 10/04 which revealed in stent re-steno sis of both LM into LAD and LCx stents, mild disease of RCA. Transferred to [facility] for further evaluation. TTE shows LV function [...] II-III, Stage C. Etiology ischemic. TTE at [facility] showed EF 30-35%, mildly reduced RV function, mild dilation of ascending aorta. LVEDP 14 mm hg during catheterization 10/04 ( in setting of hypotension). He was diuresed at [facility], appears euvolemic on exam today. Pt was [...] Aflutter with RVR prior to admission in [facility], treated with amioda rima infusion, maintaining SR [...] admitted with acute dyspnea, respiratory failure to [facility] 10/03 found to be Flu pos itive. [...] sepsis management , fluid resuscitation. EGD at [facility] on 10/05 showed gastritis, duodenitis, linear ulcerations [...] patient was interviewed and examined by attending web marketing coordinator, Dr. Khurram Bedoya MD , who is in agreement with above described findings, assessment and plan. Ashleigh Alvarez, [facility] Instructor of Medicine [facility] [place] Pager [phone] I spent 51 minutes in coordination of care and fzvi-wa-qlwu with the patient and/or their s urrogate in which management of CAD, imaging plan and consultation with radiology, pneumonia treatment was discussed Associated attestation - Khurram Bedoya MD - 10/12/2017 3:00 PM PSTCardiology Attendi I have seen and examined Mr. Mckeon and discussed the [facility]. I reviewed the practitioner's note above and agree with the documented f indings and plan of care. KHURRAM BEDOYA MD Director of the [facility] Hypertrophic Cardiomyopathy Diesel Engineer of Echocardiography Slot Service Specialistautomotive design layout drafter Division of Cardiovascular Medicine Cristi Sutton - 10/11/2017 12:15 PM PSTTransthoracic echocardiogram completed. Final report to follow. documented in this enc ounter Plan of Treatment + +---------+--------+ + + | Name | Type | Priori | Associated Diagnoses | Order Schedule | | | | ty | | | + +---------+--------+ + + | TELEPHONE SALES AGENT INT | Imaging | Routin | | Tomorrow for 1 | | CORONARY ANGIOGRAM | | e | | Occurrences starting | | | | | | 10/15/2017 until | | | | | | 10/15/2017 | + +---------+--------+ + + | TELEPHONE SALES AGENT EP ICD | Imaging | Routin | [...] | POC | | PST | infarction) ([facility]) | results section. | + +--------+ + + + | CAPILLARY BLOOD | Routin | 10/17/2017 | Non-ST elevation | Results for this | | GLUCOSE (NO CHG), | e | 7:38 AM | (NSTEMI) myocardial | procedure are in the | | POC | | PST | infarction ([facility]) | results section. | + +--------+ + [...] | | | | PST | infarction) ([facility]) | results section. | + +--------+ + [...] | POC | | PST | infarction ([facility]) | results section. | + +--------+ + [...] | + +--------+ + + + | TELEPHONE SALES AGENT | Routin | 10/15/2017 | | Results [...] | POC | | PST | infarction ([facility]) | results section. | + +--------+ + [...] | POC | | PST | infarction ([facility]) | results section. | + +--------+ + [...] | | | GLUCOSE, | | | MARRANDIAM | | | POC | | | [...] [facility] | [address] | [place], [place] | | | [facility] | [address] | [address] | | | TESTS | | | [...] MARIA | [address] | [place], [place] | | | [facility] | [address] | [address] | | | TESTS | | | [...] | + + | Service Account, Arely Cryo-Innovation In Interface - 10/17/2017 7:51 AM PST [...] [facility] | [address] | [place] [address] | | | SERVICES, CORE | PARK [...] | | | LABORATORY | | | VINCENTIAN | | | SERVICES, | | | [...] | + + + + + | [facility] | [address] | [place] [address] | | | SERVICES, CORE | PARK [...] At | + + + | STUDY: CA CHEST 1 VIEW HISTORY: Evaluated lead placement. | [facility] | | COMPARISON: STUDY: CA CHEST 1 VIEW FINDINGS: A new | [...] Note | + + | Service Account, RadiAlbumatic Res In Interface - 10/17/2017 7:51 AM PST STUDY: CA CHEST 1 | | VIEWHISTORY: Evaluated lead placement.COMPARISON: STUDY: CA CHEST 1 VIEWFINDINGS: A | | new [...] | Ron Mckeon DATE OF PROCEDURE: 10/16/2017 MRN: | | | [id number] DATE OF : 1955 REFERRING PHYSICIAN: | | | Khurram Bedoya MD PRIMARY CARE PHYSICIAN: Chato Matson, | | | PROCEDURES PERFORMED: Biventricular ICD implantation | | | His bundle pacing lead implantation then removal PRE PROCEDURE | | | DIAGNOSIS: Ischemic cardiomyopathy with reduced ejection fraction | | | 30-35% Sustained VT (positive electrophysiology study for inducible | | | monomorphic ventricular tachycardia) POST PROCEDURE DIAGNOSIS: | | | Same INDICATION: Ron Mckeon is a 61 y.o. Male recent | | | NSTEMI, non-sustained VT (PVC triplet) and reduced EF<35% who | | | underwent sudden cardiac arrest risk stratification using | | | ventricular programmed electrical stimulation protocol. Sustained | | | monomorphic VT was induced leading to this procedure. He is | | | candidate for GROCERY CASHIER-D since he as class 2 baseline heart failure and | | | currently class 3 heart failure with LBBB 152 msec. PROCEDURE | | | ATTENDING: Sophie Darby MD FELLOW: | | | Amarilis Castle MD PROCEDURAL DATA: Procedure: New | | | implant Implanted generator private secretary: Medtronic Implanted leads | | | private secretary: Medtronic Radha-procedure Anticoag: None Presenting | | | rhythm: NSR Existing device under advisory? No Pacemaker | | | dependent: No Method of sedation: Conscious sedation - Anesth | | | provider Response to sedation: Normal Fluoroscopy time (see log): | | | 45-47 minutes MEDICATIONS: See anesthesia log and cath | | | lab log INTAKE AND OUTPUT: 1000 ml / 0 Fluoroscopy Time: 45.2 | | | minutes Fluoroscopy DAP: 2192.0 cGy cm2 PROCEDURE NARRATIVE: | | | Following oral and written informed consent, the patient was brought | | | to the Electrophysiology Laboratory in the postabsorptive, | | | nonsedated state. Cefazolin 2gm IV was administered preoperatively. | | | The patient was prepped and draped in the usual sterile fashion. A | | | finger oximeter and automatic blood pressure cuff were placed for | | | continuous monitoring. Sedation was achieved by the anesthesiology | | | service. Lidocaine 1% was used for local anesthesia. Under | | | ultrasound guidance, the left axillary vein was cannulated | | | percutaneously using a Micropuncture needle. A 0.018" wire was | | | advanced into the vein and positioned below the diaphragm to confirm | | | venous cannulation. This wire was exchanged for an 0.035" J wire. | | | The procedure was repeated and a second and third J wire were | | | advanced inferior to the diaphragm in a similar fashion. An incision | | | was made medial and perpendicular to the deltopectoral groove. This | | | was dissected down to the prepectoral fascia using electrocautery | | | and all three wires were internalized into the pocket. A 9 | | | Fr Safe sheath was inserted over the first wire and the wire and | | | dilator were removed. Using fluoroscopy, a defibrillator lead was | | | introduced into the 9 Fr sheath and advanced into the right | | | ventricular outflow tract using a curved stylet. Using a straight | | | stylet, the lead was withdrawn and its tip positioned in the right | | | ventricular apex. The lead tip was stabilized and actively fixated | | | in this position. Lead testing showed suitable parameters. There | | | was no diaphragmatic stimulation at an output of 10 V. The 9 Fr | | | sheath was pulled out and peeled away. The lead was anchored to | | | the prepectoral fascia using interrupted silk-0 sutures. A 7 Fr | | | Safe sheath was inserted over the second guidewire and the wire and | | | dilator were removed. An atrial lead was then introduced into the | | | 7-Fr sheath and using a J-tip stylet, its tip was positioned in the | | | right atrial appendage. The lead was actively fixated in this | | | position. Lead testing showed suitable parameters, with no right | | | hemidiaphragmatic stimulation occurring at an output of 10 V. The | | | 7 Fr sheath was pulled out and peeled away. The lead was anchored | | | to the prepectoral fascia using interrupted silk-0 sutures. A | | | 9 Fr Safe sheath was inserted over the third guidewire and the wire | | | and dilator were removed. A 6-Fr deflectable EP mapping catheter | | | was inserted into a cut-away, extended-hook coronary sinus sheath | | | and this system was inserted [...] wire and dilator were removed. | | | A 6-Fr deflectable EP mapping catheter was inserted into a | | | cut-away, extended-hook coronary sinus sheath [...] parameters were within acceptable limits. The CS | | | sheath was pulled out of the CS [...] INFORMATION: BiV-ICD pulse generator: | | | Cutlet Maker Pork: MedEmpressr Model number: [id number] Serial number: | | | [id number] RA lead: Cutlet Maker Pork: Medtronic Model number: | | | [id number] Serial number: [id number] RV lead: Cutlet Maker Pork: | | | Medtronic Model number: [id number] Serial number: [id number] | | | CS lead: Cutlet Maker Pork: Medtronic Model number: [id number] Serial | | | number: [id number] MEASURED PARAMETERS: RA lead: P wave: | | | 2.3 mV Threshold: 1.0 V at 0.4 ms Impedance: 456 ohms | | | RV lead: R wave: 18.8 mV Threshold: 0.5 V at 0.4 ms | | | Pacing Impedance: 456 ohms Defibrillation Impedance: 72 ohms | | | CS lead: Pacing configuration: LV1>LV2 Threshold: 0.5 V at | | | 0.4 ms Impedance: 836 ohms Bradycardia Parameters: Mode: | | | DDD Lower rate limit: 50 Upper rate limit: 130 Output | | | (A): 3.5 V at 0.4 ms Sensitivity (A): 0.3 mV Output (RV): | | | 3.5 V at 0.4 ms Sensitivity (RV): 0.3 mV Output (CS): 2.0 V | | | at 0.4ms Tachycardia Parameters: VT zone: 177-200 Therapies: | | | Monitor VF zone: >200 bpm Therapies: 35 J x 6 ESTIMATED | | | BLOOD LOSS: 15 mL COMPLICATIONS: None DISPOSITION: The | | | patient was transferred to the Procedural Care Unit in good | | | condition. IMPRESSION: Successful implantation of a biventricular | | | implantable cardioverter defibrillator via a left axillary approach | | | RECOMMENDATIONS: Portable CXR to evaluate for lead positions. | | | Continue prophylactic IV antibiotics for 24 hours. PA and lateral CXR | | | in AM to confirm lead position. Device interrogation in AM. | | | Outpatient wound check in one week, device check in one month. | | | Amarilis Castle MD Electrophysiology Fellow Division of | | | Cardiovascular Medicine [facility] [place] Pager | | | [phone] Pursuant to Federal Medicare requirements, I certify that I, | | | Sophie Darby MD, was present for the entire procedure, performed | | | all critical elements, and participated directly in the generation | | | of this report. Sophie Darby MD Cardiovascular Medicine - | | | Electrophysiology [facility] [place] at [facility] | | + + + PROCEDURE NOTE (10/16/2017 5:27 PM PST) + + + | Narrative | Performed At | + + + | Sophie Darby MD 10/27/2017 11:06 AM PATIENT NAME: | | | Ron Mckeon DATE OF PROCEDURE: 10/16/2017 MRN: | | | [id number] DATE OF : 1955 REFERRING PHYSICIAN: | | | Khurram Bedoya MD PRIMARY CARE PHYSICIAN: Chato Matson | | | PROCEDURES PERFORMED: 1) Electrophysiology study 2) | | | Ventricular tachycardia induction PRE PROCEDURE DIAGNOSIS: | | | Ischemic cardiomyopathy POST PROCEDURE DIAGNOSIS: Same | | | INDICATION: Ron Mckeon is a 61 y.o. Male recent NSTEMI, | | | non-sustained VT (PVC triplet) and reduced EF<35% who presents to | | | the Electrophysiology Laboratory for an Electrophysiology study for | | | sudden cardiac arrest risk stratification using ventricular | | | programmed electrical stimulation protocol. PROCEDURE ATTENDING: | | | Sophie Darby MD FELLOW: Amarilis Castle MD | | | MEDICATIONS: See anesthesia log and lab tech log FLUIDS: | | | In: 300 ml/ Out: 0 Fluoroscopy Time: 5.2 minutes Fluoroscopy | | | DAP: 67.0 cGy cm2 ESTIMATED BLOOD LOSS: 10 ml PROCEDURE | | | NARRATIVE: Following oral and written informed consent from the | | | patient, the patient was brought to the Electrophysiology Laboratory | | | in the post-absorptive, non-sedated state. A team pause was | | | performed. The patient was prepped and draped in the usual sterile | | | fashion. A finger oximeter and automatic blood pressure cuff were | | | placed for continuous monitoring. Sedation was achieved per | | | anesthesia team. 1% lidocaine was used for local anesthesia. | | | Using the modified Seldinger technique, 2 sheaths, 7 Fr, were | | | inserted into the right femoral vein. Under fluoroscopic guidance, a | | | deflectable quadripolar catheter was positioned in the right | | | ventricular (RV) apex, and a deflectable decapolar catheter was | | | placed in coronary sinus (CS). Using these catheters, RV and CS | | | recordings were obtained, and ventricular pacing was performed. | | | The patient's baseline rhythm was sinus. Ventricular stimulation | | | protocol was performed to try to induce ventricular tachycardia. | | | Ventricular pacing was performed from the right ventricular apex. | | | Two drive cycle lengths, 550 ms and 400 ms, were used. Up to 3 | | | ventricular extrastimuli were delivered. The coupling interval of | | | the extrastimuli was progressively tightened until VT was induced at | | | 400/250/270 msec with VT cycle length of 324 msec. VT was induced | | | at least twice and lasted >30 seconds on second episode, for which | | | he was paced out of it. Patient was hemodynamically stable. The | | | patient tolerated the procedure well. MEASURED VALUES: | | | Pre-Ablation EPS findings/measurements: Rhythm: SINUS Ventricular | | | cycle length (ms): 780 AH interval (ms): 82 HV interval (ms): 75 | | | CA interval (ms): 180 QRS duration (ms): 130 QT interval (ms): 420 | | | Ventricular pre-excitation (y/n) :No Legend: FP=Fast Pathway, | | | SP=Slow Pathway, AVN=AV Node, WCL= Wenckebach cycle length; ERP | | | effective refractory period Ventricular Pacing | | | Site: RV apex VA conduction present: yes VAWCL: <400ms | | | VERP (drive CL / ERP): 400/240ms Rhythm(s) induced: 1) | | | VT, CL 324 ms, induced 400/250/270 DISPOSITION: All catheters | | | and sheaths were pulled. Hemostasis was achieved by Z stitches. | | | The patient was brought back to the Procedural Care Unit in good | | | condition. COMPLICATION: None IMPRESSION: Positive EP | | | study for inducible ventricular tachycardia RECOMMENDATIONS: | | | Proceed with biventricular ICD implantation today Olmos | | | MD Tin Electrophysiology Fellow Division of Cardiovascular | | | Medicine [facility] Pager [phone] | | | Pursuant to Federal Medicare requirements, I certify that I, Sophie | | | Wilner BREWER, was present for the entire procedure, performed all | | | critical elements, and participated directly in the generation of | | | this report. Sophie Darby MD Cardiovascular Medicine - | | | Electrophysiology [facility]ovascular [place] at [facility] | | + + + VBG-FULL ABL, POC (10/16/2017 3:55 PM PST) + + + + + + | Component | Value | Ref Range | Performed | Pathologist | | | | | At | Signature | + + + + + + | PH VENOUS, | 7.32 (L) | 7.35 - 7.45 | [facility] - | | | POC | | | ANAM ARIA | | | | | | JULIANN [...] [facility] | [address] | [place], [place] | | | JULIANN SILVA OF [facility] | [facility] | [address] | | | TESTS | | | [...] R[facility] | [address] | [place], [place] | | | JULIANN [facility] [place] | [address] | [phone] | | | TESTS | | | [...] | + + + + + | [facility] | [address] | [place] [address] | | | SERVICES, CORE | JT [...] | | | LABORATORY | | | VINCENTIAN | | | SERVICES, | | | [...] | + + + + + | [facility] | [address] | [place] [address] | | | SERVICES, CORE | JT [...] + | [facility]oe [facility] | [address] | [place], [place] | | | JULIANN SILVA OF [facility] | [address] | [phone] | | | TESTS | | | [...] + + + + | [facility]T | 483 | ms | [facility] DE[facility] [...] DEPT OF | [address] | [place], [place] | | | CARDIOLOGY | [address] | [address] | | + + + + + CARDIAC CATH (10/15/2017 2:11 PM PST) + + | Procedure Note | + + | Tejal Modi MD - 10/15/2017 2:11 PM PST DATE OF PROCEDURE:October 15, | | 2018PERFORMING PHYSICIAN:Tejal Modi [facility] ATTENDING:Mike Bray MDThere was no | | [...] 110 mL.FLUOROSCOPY TIME:17.8 minutes.FLUOROSCOPY | | DAP:7406.0 [id number]:1. Left ventricular pressure 91/23 mmHg.2. Aortic | | pressure 93/72 mmHg, mean of 80 mmHg. 3. Heart rate 71 beats per minute.ACCESS:1. | | 14-Tuvaluan Impella sheath in the right femoral artery.2. 7-Tuvaluan sheath in the left | | femoral artery.3. 6-Tuvaluan sheath in the right femoral vein.ESTIMATED BLOOD [...] | micropuncture technique and ultrasound guidance, a 5-Tuvaluan sheath was inserted in the | | right femoral artery and a 6-Tuvaluan sheath was inserted in the right femoral vein. Two | | Perclose devices were deployed in the preclosure method and then the 5-Tuvaluan sheath was | | exchanged over an Amplatz stiff wire for the 14-Tuvaluan Impella sheath. A 5-Tuvaluan | | angled pigtail catheter was then [...] technique and ultrasound guidance and placed a 7-Tuvaluan sheath. A 7-Tuvaluan XB 3.5 guide | | catheter was [...] and pulled out of the body. The 14-Tuvaluan sheath was | | then removed and [...] 18 mm Resolute Alvaro drug-eluting stent. Successful | | percutaneous coronary [...] | | 10/15/2017 13:25:02DT: 10/15/2017 14:11:10Job #: [id number] | |2. Lesion type: C. | |3. [...] |BCN/MODL | | | | | | /[id number] | + + ACT, POC-CCL ONLY (10/15/2017 [...] | | | INTRAPROC | | | [place] | | [...] + + + | [facility] | [address] | [place], [place] | | | JULIANN [facility] [place] | [facility] | [address] | | | TESTS | | | | + + + + + ACT, POC-CCL ONLY (10/15/2017 12:17 PM PST) + +-------+ + + + | Component | Value | Ref Range | Performed | Pathologist | | | | | At | Signature | + +-------+ + + + | ACT, POC | 247 | 90 - 150 | [facility] - | | | CCL | | [...] [facility] | [address] | [place], [place] | | | JULIANN SILVA OF [facility] | [facility] | [address] | | | TESTS | | | | + + + + + SARATH POC-CCL ONLY (10/15/2017 12:01 PM PST) + +-------+ + + + | Component | Value | Ref Range | Performed | Pathologist | | | | | At | Signature | + +-------+ + + + | ACT POC | 228 | 90 - 150 | [facility] - [...] [facility] | [address] | [place], [place] | | | JULIANN S[facility] [place] | [address] | [address] | | | TESTS | | | | + + + + + TELEPHONE SALES AGENT EMERGENT/IMMEDIATE PROCEDURE (10/15/2017 11:00 AM PST) + + | Specimen | + + | | + + + + + | Narrative | Performed At | + + + | Procedure | | | performed in the Cardiac Tugboat Dispatcher. See procedure notes for details. | | [...] [facility] | [address] | [place], [place] | | | JULIANN SILVA OF CARE | [address] | [address] | | | TESTS | | | [...] | + + + + + | [facility] | [address] | [place] [address] | | | SERVICES, ИРИНА | JT [...] | | | LABORATORY | | | VINCENTIAN | | | SERVICES, | | | [...] [facility] | [address] | [place] [address] | | | SERVICES, CORE | PARK [...] | + + + + + | [facility] | [address] | [place] [address] | | | SERVICES, CORE | JT [...] MARIA | [address] | [place], [place] | | | [place] [facility] | [address] | [address] | | | TESTS | | | [...] | | | LABORATORY | | | VINCENTIAN | | | SERVICES, | | | [...] | + + + + + | [facility] | [address] | [place] [address] | | | SERVICES, CORE | PARK [...] EULOGIO CALABRESE | [address] | [place] [address] | | | ARASH, ИРИНА | JT [...] + | [facility] | [address] [facility] [address] | [place], [place] | | | RICARDO SALINAS OF [facility] | [address] | [address] | | | TESTS | | | | + + + + + PET CARDIAC METABOLIC (10/13/2017 6:06 PM PST) + + | Specimen | + + | | + + + + + | Narrative | Performed At | + + + | EXAM: PET Scan Cardiac 10/13/17 14:07:41 HISTORY: | [facility] | | 61-year-old male presenting with a stent thrombosis of the LM/LAD | RADIOLOGY VOICE | | and LCx stents. Patient was transferred here for consideration of | RECOGNITION | | complex PCI versus CABG. Study is to evaluate for viable myocardium. | | | COMPARISON: Myocardial perfusion rest scan 10/13/17 PROCEDURE: | | | Myocardial viability prep consisting of 12 hour fast, diabetic or | | | not, glucose load, insulin if administered Following interview by | | | nuclear medicine personnel, the patient uneventfully received 9.3 mCi | | | of 18-F fluorodeoxyglucose via a left medial biceps intravenous | | | injection. The blood glucose level was 105. After 60 minutes | | | in quiet conditions, non contrast CT scan for attenuation correction | | | and anatomic localization was performed. Immediately following, and | | | without moving the patient, standard body PET imaging was performed of | | | the heart. Axial, sagittal, and coronal images are evaluated. | | | FINDINGS: FDG cardiac PET demonstrates severely decreased to | | | absent tracer uptake along the anterior mid to distal wall, mid to | | | distal interventricular septum, and apex. Tracer uptake is seen within | | | the rest of the left ventricle. Review of the separate myocardial | | | rest perfusion Tc-Sestamibi demonstrates extensive severe perfusional | | | defect involving the same areas as described above. The non | | | contrast CT for attenuation and localization was also reviewed. No | | | suspicious pulmonary nodules are identified. Small bilateral pleural | | | effusions are present. No suspicious osseous lesions are identified. | | | IMPRESSION: No significant tracer uptake within the | | | jfw-nw-uyhxmk anterior wall/interventricular septum and apex | | | corresponding to same non-perfused areas seen on myocardial rest | | | perfusion scan, compatible with nonviable myocardium in these regions. | | | I have personally reviewed the images and, if necessary, | | | edited the report. I agree with the report as now presented. | | + + + + + | Procedure Note | + + | Service Account, Radiant Res In Interface - 10/14/2017 5:47 PM PST [...] significant tracer | | uptake within the mya-sp-trazel anterior wall/interventricular septum and apex | | corresponding to same non-perfused areas seen on myocardial rest perfusion scan, | | compatible with nonviable myocardium in these regions. I have personally reviewed the | | images and, if necessary, edited the report. I agree with the report as now presented. | |No significant tracer uptake within the uvq-jk-kcabvu anterior wall/interventricular septum and apex corresponding to [...] [facility] | [address] | [place], [place] | | | [facility] | [address] | [address] | | | TESTS | | | [...] [facility] | [address] | [place], [place] | | | JULIANN SILVA OF CARE | [address] | [address] | | | TESTS | | | [...] [facility] | [address] | [place], [place] | | | [facility] | [address] | [address] | | | TESTS | | | [...] [facility] | [address] | [place], [place] | | | [facility] | [address] | [address] | | | TESTS | | | [...] - [facility] | [address] | [place], [place] | | | [facility] | [address] | [address] | | | TESTS | | | [...] [facility] | [address] | [place], [place] | | | [facility] | [address] | [address] | | | TESTS | | | [...] [facility] | [address] | [place], [place] | | | [facility] | [address] | [address] | | | TESTS | | | [...] | [facility] | [address] | [place], [place] | | | [facility] | [address] | [address] | | | TESTS | | | [...] [facility] | [address] | [place], [place] | | | [facility] | [address] | [address] | | | TESTS | | | [...] [facility] | [address] | [place], [place] | | | [facility] | [address] | [address] | | | TESTS | | | [...] | [facility] | [address] [facility] [address] | [place], [place] | | | [facility]O [facility] OF [facility] | [address] | [address] | | | TESTS | | | | + + + + + NM MYOCARDIAL PERFUSION (SPECT) SINGLE AT REST OR STRESS (10/13/2017 11:18 AM PST) + + | Specimen | + + | | + + + + + | Narrative | Performed At | + + + | EXAM: Regadenoson Sestamibi SPECT Myocardial Perfusion Study | [facility] | | 10/13/17 09:54:20 HISTORY: Myocardial infarction COMPARISON : | RADIOLOGY VOICE | | None TECHNIQUE: This is a one day (rest only) study. The | RECOGNITION | | rest portion was performed on 10/13/17. The patient was injected with | | | 29.1 mCi Tc 99m sestamibi. Gated SPECT images were acquired one hour | | | after injection. FINDINGS: On rest projection images, | | | there is significant patient motion. There is no significant soft | | | tissue attenuation. On rest SPECT images, there is an | | | extensive severe defect involving the anterior mid to distal wall, | | | apex, and anterior septum, involving approximately 40% of the left | | | ventricular myocardium. Left ventricle wall motion of the | | | affected region is akinetic and dyskinetic and brightening is nearly | | | absent. LVEF is calculated to be 24%. IMPRESSION: | | | Extensive severe perfusional defect involving approximately 40% of the | | | left ventricular myocardium with severe wall motion abnormality and | | | ejection fraction of 24%. This study is categorized as high risk. | | | Study interpreted with Dr. Will Ann of cardiology. I have | | | personally reviewed the images and, if necessary, edited the report. | | | I agree with the report as now presented. | | + + + + + | Procedure Note | + + | Service Account, Artillery In Interface - 10/13/2017 5:30 PM PST [...] [facility] | [address] | [place], [place] | | | [facility] | [address] | [address] | | | TESTS | | | [...] [facility] | [address] | [place] [address] | | | SERVICES, CORE | PARK [...] | | | LABORATORY | | | VINCENTIAN | | | SERVICES, | | | [...] | + + + + + | [facility] | [address] | [place] [address] | | | SERVICES, CORE | PARK [...] E[facility]OGIO [facility] | [address] | [place], [place] | | | JULIANN SILVA OF [facility] | [address] | [address] | | | TESTS | | | [...] | results, recheck every AM APTT Therapeutic Range: | SERVICES, CORE | | (75 - 120) sec Heparin levels of 0.35 - 0.7 U/mL | | | | | + + + + + + + + | Performing | Address | City/State/Zipcode | Phone Number | | Organization | | | | + + + + + | [facility] | [address] | [place] [address] | | | SERVICES, CORE | JT [...] (H) | 70 - 99 mg/dL | [facility] - | | | GLUCOSE, | | [...] [facility] | [address] | [place], [place] | | | JULIANN SILVA OF [facility] | [address] | [address] | | | TESTS | | | | + + + + + MR CARDIAC COMPREHENSIVE W/O CONTRAST (10/12/2017 12:38 PM PST) + + | Specimen | + + | | + + + + + | Narrative | Performed At | + + + | Report ====== Precipitator Supervisor: Rodríguez Fortune ([phone]), shubham | E[facility] | | richy Lead Javascript Developer: shubham lockhart Fellow: shubham lockhart | RADIOLOGY | | Purchasing Associate: shubham lockhart Viewer: shubham lockhart Report Date: | CARDIAC IMAGING | | Oct 2017, 09:22:25 PST Patient ------- Patient: RON MCKEON | | | Acc #: [id number] | | | Ethnicity: N Status: Final [...] | | | Image Quality: Good Scanner Cutlet Maker Pork: Liazon Scanner | | | Model: [employer] Scanner Serial Number: [id number] Scanner Software | | | Platform: 5.3.15.3.1.0 Staff: Rodríguez Fortune Modality: MR | | | Indication Name: routine Protocol Name: CMR W Flows WO Contrast | | | Findings -------- Non-cardiac findings were reviewed by Dr. Curtis. | | | This exam was terminated prematurely and is lmiited to media production support manager images. | | | There are bilateral [...] - 10/16/2017 9:22 AM PST | | Report======Precipitator Supervisor: Rodríguez Fortune ([phone]), shubham Rodriguezalyst: shubham | | Lorena: shubham Garciaechnician: shubham Beckwithwer: shubham | | Rosey Date: 16 Oct 2017, 09:22:25 PSTPatient-------Patient: RON MCKEON | | JMedical Record Number: [id number] [id number]: [id number] #: [id number]: NStatus: | | Final ReportReport Number: [id number]: MaleBirthdate: 1955 (61 yrs)Study Date: 05 | | Oct 2017Study Description: CMR with Flows with ContrastReferring Physician: KHURRAM | | HEITNERBlood Pressure: /Heart rate:Height (cm): 0Weight (kg): 89BMI (kg/m ): 0BSA | | (m ): 0 (Mosteller Formula)Image Quality: The Motley FoolcanVideoLens Cutlet Maker Pork: BioSET | | HalotechnicsScanner Model: [employer] Serial Number: [id number] Software Platform: | | 5.3.15.3.1.0Staff: Rodríguez FortuneModality: MRIndication Name: routineProtocol Name: | | CMR W Flows WO ContrastFindings--------Non-cardiac findings were reviewed by | | Ever.This exam was terminated prematurely and is lmiited to media production support manager images.There are | | bilateral pleural effusions. [...] Formula) | |Image Quality: Good | |Scanner Cutlet Maker Pork: Liazon | |Scanner Model: [employer] | |Scanner Serial Number: [id number] | |Scanner Software Platform: 5.3.15.3.1.0 | |Staff: Rodríguez Fortune | |Modality: MR | |Indication Name: routine | |Protocol Name: CMR W Flows WO Contrast | |Findings | |-------- | |Non-cardiac findings were reviewed by Dr. Curtis. | |This exam was terminated prematurely and is lmiited to media production support manager images. | |There are bilateral pleural effusions. [...] [facility] | [address] | [place], [place] | | | JULIANN SILVA OF [facility] | [address] | [address] | | | TESTS | | | [...] [facility] | [address] | [place] [address] | | | SERVICES, CORE | PARK [...] [facility] | [address] | [place] [address] | | | SERVICES, ИРИНА | JT [...] | | | LABORATORY | | | VINCENTIAN | | | SERVICES, | | | [...] | + + + + + | [facility] | [address] | [place] [address] | | | SERVICES, ИРИНА | JT [...] [facility] | [address] | [place] [address] | | | ИРИНА ANTOINE | JT [...] [facility] | [address] | [place], [place] | | | JULIANN SILVA OF CARE | [facility] | [address] | | | TESTS | | | [...] (H) | 70 - 99 mg/dL | [facility] - | | | GLUCOSE, | | [...] + + + | [facility] | [address] | [place], [place] | | | JULIANN SILVA OF [facility] | [address] | [address] | | | TESTS | | | [...] presence of significant oropharyngeal contamination. CRITICAL | [place] | | RESULTS Results called to and verified by: Vicki Reyes at phone # | | | [facility] on: 10/12/2017 8:10:02 AM PST by: [id number] | | + + + + + + + + | Performing | Address | City/State/Zipcode | Phone Number | | Organization | | | | + + + + + | [facility] | [address] | [place] [address] | | | [place] | | | | + + + [...] [facility] | [address] | [place] [address] | | | ИРИНА ANTOINE | JT [...] | + + + + + | [facility] | [address] | [place] [address] | | | SERVICES, CORE | JT [...] | + + + + + | [facility] | [address] | [place] [address] | | | SERVICES, CORE | JT [...] | [facility] | | considered for monitoring buttermilk drier operator glycemic control in patients with: | LABORATORY [...] | fructosamine should be considered for monitoring buttermilk drier operator glycemic | | | control in patients with: Increased red cell turnover, certain | | | hemoglobinopathies (e.g., HbS, HbE, HbC and thalassemia syndromes), | | | anemias, blood loss, chronic liver disease and hemochromatosis | | | (artefactually low HbA1c); iron deficiency anemia (artefactually high | | | HbA1c due to enhanced glycation of hemoglobin). | | + + + + + + + + | Performing | Address | City/State/Zipcode | Phone Number | | Organization | | | | + + + + + | [facility] | [address] | [place] [address] | | | SERVICES, SPECIAL | [address] | | | | IMM + [...] Performed At | + + + | [facility] | [facility] | | [facility] [address] | CARDIOLOGY | | [place], [place] [address] Ph: | | | Pt Name: RON MCKEON | | | Study Date/Time 10/11/2017 / 11:47:35 AMMRN: [id number] | | | Most recent prior: 03/30/2017Acc #: [id number] | | | No. previous echos: 4DOB: 1955 61 years Heart | | | Rate: 84 bpmHeight: 69.0 in Blood | | | Pressure: 115/68 mm/HgWeight: 196.0 lb | | | Gender: MBSA: 2.05 m2 | | | Order ID: [id number] Fixed Capital Clerk: Shahab Sutton [facility] | | | Referring Provider: Kimmy LowPatient Location: [address] [place] [address] | | | Performed: 2D, Color flow, [...] | | | presents on transfer from [place] for consideration of complex PCI | | [...] size is normal. | | | 2. The LV function is severely abnormal. | | | 3. Left | | | ventricular systolic thickening is segmentally abnormal (see | | | comments below). | | | 4. Visually estimated left | | | ventricular ejection fraction is 30 - 35%. 5. RV cavity | | | size is normal. RV global systolic function is mildly reduced. 6. | | | There is mild dilatation of the ascending aorta. (See comments below). | | | | | | 7. Compared to | | | the most recent exam dated, 03/30/2017, the LVEF is similar. | | | | | | | | | + | | | + Description of Findings: Cardiac Rhythm: Normal sinus | | | rhythm.Left Ventricle: The left ventricular cavity size is normal. | | | Visually estimated left ventricular ejection fraction is 30 - 35%. The | | | ejection fraction is 32.2 % as measured by Landry's biplane method. | | | The LV function is severely abnormal. Due to poor endocardial | | | definition, ultrasound contrast was used (Lumason).Left Ventricular | | | Wall Motion: The entire inferior septum, mid and apical anterior | | | septum, apical anterior segment, and apex are akinetic. The basal | | | anteroseptal segment, mid anterior segment, and mid inferior segment | | | are hypokinetic. All remaining scored segments are normal. Left | | | ventricular systolic thickening is segmentally abnormal.Right | [...] NL Values Aortic | | | MitralLVID(d) 5.91 cm (3.5-5.7cm) Max Rohan | | | Peak E 0.71 m/sLVID(s) 5.13 cm Mean | | | grad Peak A 0.72 m/sIVS(d) 1.01 cm | | | (0.6-1.1cm) LVOT Rohan 0.91 m/s E/A Ratio 0.99LVPW(d) | | | 1.05 cm (0.6-1.1cm) TDI (E/e') | | | 8.7LA A/Ps 2D 3.90 cm (2.7-3.9cm) LVOT Diam 2.20 cm MV mn gd | | | Tricuspid | | | PulmonicBiplane EF 32.2 % TR Vmax | | | PV Vmax 1.2 m/s | | | RA Press 3 mmHg RVOT VTI 15.4 cm | | | Aorta: | | | Index: Ao | | | Sinus 3.40 cm (2.1-3.5cm) 16.6 mm/m2 | | | Asc Ao (prox) 3.70 cm 18.1 | | | mm/a6Idyusffzon of chamber size and geometry is accomplished through | | | the incorporation of linear, volumetric, and indexed values Wall | | | Scoring: Report electronically signed by: [id number] Khurram Bedoya | | | (10/11/2017, 12:59:49 PM) Final (Updated) | | | | | | Aorta: Index: | | | Ao Sinus 3.40 cm (2.1-3.5cm) 16.6 m m/m2 | | | Asc Ao (prox) 3.70 cm 18. 1 mm/m2 | | |Evaluation of chamber size and geometry is accomplished through the incorporation of | | |linear, volumetric, and indexed values | | | | | |Wall Scoring: | | | | | | | | |Report electronically signed by: [id number] Khurram Bedoya MD (10/11/2017, 12:59:49 | | |PM) | | | | | | | | | | | | Final (Updated) | | + + + + + | Procedure Note | + + | Interface, Cardiology Results - 10/11/2017 1:00 PM [facility] [employer] | | [facility] | | [place], [place] [address] Pt Name: RON Chaudhary | | MIKE Study Date/Time 10/11/2017 / 11:47:35 AMMRN: [id number] Most | | recent prior: 03/30/2017Acc #: [id number] No. previous echos: 4DOB: | | 1955 61 years Heart Rate: 84 bpmHeight: 69.0 in Blood | | Pressure: 115/68 mm/HgWeight: 196.0 lb Gender: MBSA: | | 2.05 m2 Order ID: [id number] Fixed Capital Clerk: Shahab Sutton RDCSReferring | | Provider: Kimmy [...] use disorder who presents on transfer from [place] | | for consideration of complex PCI [...] Ao (prox) | | 3.70 cm 18.1 mm/v7Vglvfqsulu of chamber size and geometry is accomplished | | through the incorporation of linear, volumetric, and indexed values Wall Scoring: Report | | electronically signed by: [id number] Khurram Bedoya MD (10/11/2017, 12:59:49 PM) | [...] | | | |Report electronically signed by: [id number] Khurram Bedoya MD (10/11/2017, 12:59:49 | |PM) | | | | | | | | Final (Updated) | + + + + + + + | Performing | Address | City/State/Zipcode | Phone Number | | Organization | | | | + + + + + | [facility] | [address] | [place], [place] | | | CARDIOLOGY | [address] | [address] | | + + + + + X-RAY PORTABLE CHEST 1 VIEW (10/11/2017 11:24 AM PST) + + | Specimen | + + | | + + + + + | Narrative | Performed At | + + + | STUDY: CA CHEST 1 VIEW COMPARISON: 03/21/17. HISTORY: Cough. [...] Service Account, Radiant Res In Interface - 10/11/2017 1:51 PM PST STUDY: CA CHEST 1 | | VIEW COMPARISON: 03/21/17.HISTORY: [...] | | + +---------+ + + | [facility] | | | | | VOICE [...] | + + + + + | [facility] | [address] | [place] [address] | | | SERVICES, CORE | JT [...] | + + + + + | [facility] | [address] | [place] [address] | | | SERVICES, CORE | PARK [...] | | | LABORATORY | | | VINCENTIAN | | | SERVICES, | | | [...] | + + + + + | [facility] | [address] | [place] [address] | | | SERVICES, CORE | JT [...] | + + + + + | [facility] | [address] | [place] [address] | | | SERVICESИРИНА | [address] [...] [facility] | [address] | [place] [address] | | | ИРИНА ANTOINE | JT [...] | + + + + + | [facility] | [address] | [place] [address] | | | SERVICES, CORE | JT [...] | LABORATORY | | High: >=240 mg/dL LDL Cholesterol | SERVICES, CORE | | Reference Range: Optimal: <100 mg/dL | | | Near Optimal: 100-129 mg/dL Borderline High: 130-159 | | | mg/dL High: 160-189 mg/dL | | | Very High: >=190 mg/dL non-HDL Cholesterol Reference Range: | | | Optimal: <130 mg/dL Near Optimal: | | | 130-159 mg/dL Borderline High: 160-189 mg/dL | | | High: 190-209 mg/dL Very High: | | | >=210 mg/dL Triglyceride Reference Range: | | | Normal: <150 mg/dL Borderline High: 150-199 mg/dL | | | High: 200-499 mg/dL Very High: >=500 mg/dL | | | HDL Reference Range: High Risk: <40 mg/dL | | | Desirable: >=60 mg/dL | | + + + + + + + + | Performing | Address | City/State/Zipcode | Phone Number | | Organization | | | | + + + + + | [facility] | [address] | [place] [address] | | | SERVICES, CORE | [address] | | | + + + + + 12 LEAD ECG (10/10/2017 11:13 PM PST) + + + + + + | Component | Value | Ref Range | Performed | Pathologist | | | | | At | Signature | + + + + + + | VENTRICULAR | 79 | bpm | [facility] | | | RATE | | [...] + + + + | [facility] | 511 | ms | [facility] [...] | [facility] | [address] | [place], [place] | | | CARDIOLOGY | [address] | [address] | | + + + + + [...] + + | Coronary artery disease involving confederated salish coronary artery of confederated salish heart, angina | | presence unspecified | [...] of unspecified type of vessel, | | confederated salish or graft | + + | Paroxysmal atrial flutter (HCC) Atrial flutter | + + | Chronic systolic congestive heart failure (HCC) Chronic systolic heart failure | + + | Encounter for insertion of cardiac resynchronization therapy defibrillator (GROCERY CASHIER-D) | + + | Influenza, pneumonia Influenza [...] 4:29 | | | | | Starting Thu10/16/17 at 1629, | | PM PST | [...] | | | WITH MEALS, First dose (after | | AM PST | | | | | last modification) on [facility] 10/15/17 | | | | | | | at 0915, Until Discontinued | | | | | | + +-------+ + +---+---+ +---+---+ | | | +---+---+ + +-------+ + +---+---+ | carvedilol (COREG) tablet 3.125 | Given | 10/16/19 | 3.125 mg | | | | mg 3.125 mg, oral, TWICE DAILY | | 18 8:37 | | | | | WITH MEALS, First dose (after | | AM PST | | | | | last modification) on Thu10/16/17 | | | | | | | at 0730, Until Discontinued | | | | | | + +-------+ + +---+---+ +---+---+ | | | +---+---+ + +-------+ +---------+---+---+ | carvedilol (COREG) tablet 6.25 | Given | 10/14/19 | 6.25 mg | | | | mg 6.25 mg, oral, TWICE DAILY | | 18 4:51 | | | | | WITH MEALS, First dose (after | | PM PST | | | | | last modification) on Thu10/13/17 | | | | | | | at 1700, [...] | | | | | Until Radha /04/24 at 1242 | | | | | [...] | | | Until Radha 10/15/17 at 1220 | | | | [...] | | | | Until 10/16/17 at 1428 | | | | | [...] | | | 10/15/17 at 1150, Until Radah 10/15/17 | | | | | | [...] PM PST | | | | | 10/15/17 at 1201, Until Radha 10/15/17 | | | | [...]
--- OUTSIDE RECORDS SUMMARY | ~2020-03-04 | XMS | Encounter Summary ---
Demographics + + + | Address | [address] | | | [place] [address] | + + + | Home Phone [...] [place], [place] | | | | | [address] | | + + + + + Care Team Providers + +------+ + | Care Health Records Technology Teacher Name | Role | Phone | [...] | | involving | [address] [place] | | | | | [place] | MARKO [address]CGUI[address] | [place] | | | | | coronary | [address] | [address] | | | | | artery of | Phone: | Phone: | | | | | [place] heart | [phone] | [phone] | | | | | without | Fax: | Fax: | | | | | angina | [phone] | [phone] | | | | | pectoris | | | +--------+ + + + + + Encounter Details +--------+---------+ + + + | Date | Type | Department | Care Team | Description | +--------+---------+ + + + | 09/14/ | Office | [facility] | Carolina Lindarisa, | Coronary artery | | 2019 | Visit | [facility] | MD [address] | disease, angina | | | | REHABILITATION [address] [place], | presence | | | | [address] [place] | [place] [address] | unspecified, | | | | [place] [address] | [phone] | unspecified vessel | | | | [phone] | | or lesion type, | | | | | | unspecified whether | | | | | | [place] or | | | | | | [...] of this encounter Progress Gael Ortega - 09/14/2018 10:00 AM PST [facility] [address] [place] [address] Cardiac Rehab Date: 09/14/2018 Patient Information Patient Name: Bob Will Date of : 1955 Age: 62 y.o. Encounter Diagnoses Code Name Primary? I25.10 Coronary artery disease, angina presence unspecified, unspecified vessel or lesi on type, unspecified whether [place] or transplanted heart Yes Z98.61 Post PTCA [...] 09/14/2018 15:18 Patient Name: Bob Will/: 1955/ ly signed by Gael Woo at 09/14/2018 3:20 PM PSTdocumented in this encounter Plan of [...] [place] | | | | | | [address] | | | | | | | | +--------+ + + + + | 04/16/ | Office | Cardiology | Alin Anderson | | | 2019 | Visit | | MD Cheryl Arreguin | | | | | | [address] | | | | | | [place] [address] | | | | | | [phone] | | | | | | | [...] [place] | | | | | | [address] | | | | | | | | +--------+ + + + + documented as of this encounter Visit Diagnoses + + | Diagnosis | + + | Coronary artery disease, angina presence unspecified, unspecified vessel or lesion | | type, unspecified whether [place] or transplanted heart - Primary | + + | Post PTCA Postsurgical percutaneous transluminal coronary angioplasty status | + + documented in this encounter"
--- OUTSIDE RECORDS SUMMARY | ~2020-03-04 | XMS | Encounter Summary ---
Demographics + + + | Address | [address] | | | [place] [address] | + + + | Home Phone [...] [place], [place] | | | | | [address] | | + + + + + Care Team Providers + +------+ + | Care Ecdis N Navigation Operator Name | Role | Phone | [...] | | involving | [address] | [place] | | | | | [place] | [place] | [place] | | | | | coronary | [address] | [address] | | | | | artery of | Phone: | Phone: | | | | | prairie band heart | [phone] | [phone] | | | | | without | Fax: | Fax: | | | | | angina | [phone] | [phone] | | | | | pectoris | | | +--------+ + + + + + Encounter Details +--------+---------+ + + + | Date | Type | Department | Care Team | Description | +--------+---------+ + + + | 09/21/ | Office | [facility] | Rahulyazshiraz Lindarahul, | Coronary artery | | 2019 | Visit | [facility] | MD [address] | disease, angina | | | | REHABILITATION [address] | [place], | presence | | | | [address] [place] | [place] [address] | unspecified, | | | | [place] [address] | [phone] | unspecified vessel | | | | [phone] | | or lesion type, | | | | | | unspecified whether | | | | | | prairie [place] or | | | | | | [...] Progress Notes Ana Thomas RRT - 09/21/2018 11:[address] [facility] [address] [place] [address] Cardiac Rehab Date: 09/21/2018 Patient Information Patient Name: Bob Will Date of : 1955 Age: 62 y.o. Encounter Diagnoses Code Name Primary? I25.10 Coronary artery disease, angina presence unspecified, unspecified vessel or lesi on type, unspecified whether prairie band or transplanted heart Yes Number of Visits [...] 09/21/2018 13:59 Patient Name: Bob Will/: 1955/ ly signed by Ana Thomas RRT at 09/21/2018 2:00 PM PSTdocumented in this encounter Plan of [...] [place] | | | | | | [address] | | | | | | | | +--------+ + + + + | 04/16/ | Office | Cardiology | Alin Anderson | | | 2019 | Visit | | MD Cheryl Arreguin | | | | | | [address] | | | | | | [place] [address] | | | | | | [phone] | | | | | | | [...] [place] | | | | | | [address] | | | | | | | | +--------+ + + + + documented as of this encounter Visit Diagnoses + + | Diagnosis | + + | Coronary artery disease, angina presence unspecified, unspecified vessel or lesion | | type, unspecified whether prairie band or transplanted heart - Primary | + + documented in this encounter"
--- OUTSIDE RECORDS SUMMARY | ~2020-03-04 | XMS | Encounter Summary ---
Demographics + + + | Address | [address] | | | [place] [address] | + + + | Home Phone [...] [place] | | | | | [address] | | + + + + + Care Team Providers + +------+ + | Care Extractor Machine Operator Name | Role | Phone | + +------+ + | Amy Olivares MD | PCP | | + +------+ + Reason for Visit Evaluate & Treat (Routine) +--------+--------+ + + + + | Status | Reason | Specialty | Diagnoses / | Referred By | Referred To | | | | | Procedures | Contact | Contact | +--------+--------+ + + + + | Closed | | Cardiac | Diagnoses | [place], | [facility] | | | | Rehabilitatio | Chronic | Amy Dai MD | | | | | n | systolic | [address] | Rehabilitatio | | | | | (congestive) | [address] | [address] | | | | | heart | [place], | [place] | | | | | failure | [place] [address] | [place], [place] | | | | | (HCC) | Phone: | [address] | | | | | I50.22 | [phone] | Phone: | | | | | Procedures | Fax: | [phone] | | | | | Cardiac | [phone] | Fax: | | | | | Rehab | | [phone] | +--------+--------+ + + + + Encounter Details +--------+---------+ + + + | Date | Type | Department | Care Team | Description | +--------+---------+ + + + | 07/26/ | Office | [facility] | Amy Olivares V, | Chronic systolic CHF | | 2019 | Visit | [facility] | [address] | (congestive heart | | | | REHABILITATION [address] | [address] [place], [place] | failure) ([facility]) | | | | [address] | [address] | (Primary Dx) | | | | [place] [address] | | | | | | [phone] | | | +--------+---------+ + + + [...] as of this encounter Progress Notes Lorelei Cruz, HOSPITALITY DIRECTOR - 07/26/2019 12:00 PM PSTFormatting of this note might be different fr om the original. [facility]ATION [address] [facility] [address] Cardiac Rehab Date: 07/26/2019 Patient Information Patient Name: Bob Will Date of : 1955 Age: 63 y.o. Encounter Diagnoses Code Name Primary? I50.22 Chronic systolic CHF (congestive heart failure) (HCC) Yes Number of Visits Approved: 34 kx Taken Medications Today? Yes Any Changes in Medications? Yes, changed to no longer taking Metoprolol and changed doses o n amiodarone. Any Problems to Report? No No complaints with exertion. Ventricular paced rhythm without ectopy. Pre O2: 99%, Durin%, SBP prior to exercise 88 /54; during exercise 100/68. Post: 94/56 Compliant with medications and therapeutic lifestyle changes. Continue monitored exercise.. Any abnormal vital signs or rhythm strips will be reported in progress note. Electronically signed by: Lorelei Cruz RRT, 07/26/2019 10:43 AM Patient Name: Bob Will/: 1955/ ly signed by Lorelei Cruz RRT at 07/26/2019 10:46 AM PSTdocumented in this encounter Plan of Treatment +--------+ + + + + | Date | Type | Specialty | Care Team | Description | +--------+ + + + + | 03/12/ | Office | Nephrology | [facility], | | | 2019 | Visit | | [address] | | | | | | [facility] | | | | | | [address] [place] | | | | | | [address] | | | | | | | | +--------+ + + + + | 08/10/ | Office | Cardiology | Alin Anderson | | | 2019 | Visit | | MD Cheryl Arreguin | | | | | | [address] | | | | | | [place] [address] | | | | | | [phone] | | | | | | | [...] [place] | | | | | | [address] | | | | | | | | +--------+ + + + + documented as of this encounter Visit Diagnoses + + | Diagnosis | + + | Chronic systolic CHF (congestive heart failure) (HCC) - Primary | + + documented in this encounter"
--- OUTSIDE RECORDS SUMMARY | ~2020-03-04 | XMS | Encounter Summary ---
Demographics + + + | Address | [address] | | | [place] [address] | + + + | Home Phone [...] [place], [place] | | | | | [address] | | + + + + + Care Team Providers + +------+ + | Care Paper Sales Representative Name | Role | Phone | + [...] | | | | | unspecified | [address] | [address] | | | | | HF | [place], | [place] | | | | | chronicity, | [place] [address] | [place], [place] | | | | | unspecified | Phone: | [address] | | | | | heart | [phone] | Phone: | | | | | failure type | Fax: | [phone] | | | | | (HCC) | [phone] | Fax: | | | | | Procedures | | [phone] | | | | | [place] | | | | | | [...] | 04/22/ | Office | [facility] | Randy Figueroa, | Chronic systolic | | 2018 | Visit | MED CTR CARDIAC | [address] | congestive heart | | | | REHABILITATION [address] | [address] [place], | failure (HCC) | | | | [address] [place] | [place] [address] | (Primary Dx); | | | | [place] [address] | [phone] | Chronic systolic | | | | [phone] | | heart failure (HCC) | | [...] Fields RN - 04/22/2018 1:[address] 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 He has recently switched [...] Healthy Dietary Education Date: 04/22/18 -Referral to Paper Stripper: Date: -DVD: Healthy Eating For Life Date: [...] exercise until stable. Date: Range: -Referral to Grievance Manager Date: Education Points listed below- Date [...] [place] | | | | | | [address] | | | | | | | | +--------+ + + + + | 04/16/ | Office | Cardiology | Alin Anderson | | | 2019 | Visit | | MD [address] | | | | | | [address] | | | | | | [place] [address] | | | | | | [phone] | | | | | | | [...] [place] | | | | | | [address] | | | | | | | [...]
--- OUTSIDE RECORDS SUMMARY | ~2020-03-04 | XMS | Encounter Summary ---
Demographics + + + | Address | [address] | | | [place] [address] | + + + | Home Phone [...] [place] | | | | | [address] | | + + + + + Care Team Providers + +------+ + | Care Automotive Glass Mechanic Name | Role | Phone | + +------+ + | Amy Olivares MD | PCP | | + +------+ + Reason for Visit +--------+--------+ + | Reason | Onset | Comments | | | Date | | +--------+--------+ + | Other | 06/06/ | | | | 2018 | | +--------+--------+ + Encounter Details +--------+ + + + + | Date | Type | Department | Care Team | Description | +--------+ + + + + | 06/06/ | Telephone | [facility] | Jenny, | Other | | 2018 | | CARDIOLOGY [address] | ADARSH [address] | | | | | [place], | [place], | | | | | [place] [address] | [place] [address] | | | | | [phone] | [phone] | | | | | | | [...] Telephone Encounter - Lilian Machado RN - 06/06/2019 3:16 PM PDTTresb is notified ....... ....................................Lilian Machado, RN, RN on 06/06/19 at 15:16 elephone Encounter - Hansa Alvarado ARNP - 06/06/2019 2:00 PM PDTDianne: Sounds like this patient is transferring her cardiac care to [facility]. Please let him know that: 1. I have received the message and note from Maria Esther. His heart rate was set at 50 bpm as a mi nimal by [facility] team as part of the treatment of his VT along with his amiodarone. 2. I have talked to Sukhdev (nephrology) 3. I am aware he will be going to be seeing at [facility] cardiology in June. 4. I have told Sukhdev to stop the metoprolol for now due to hypotension. (PS: if he has any appointments with us we probably won't be needing them) Electronically signed by: ADARSH Stevens 06/06/2019 14:04 documented in th is encounter Plan of Treatment +--------+ + + + + | Date | Type | Specialty | Care Team | Description | +--------+ + + + + | 03/12/ | Office | Nephrology | Juan Pablothalyocasta, | | | 2019 | Visit | | [address] | | | | | | [address] [facility] [facility] | | | | | | [address] [place] | | | | | | [address] | | | | | | | | +--------+ + + + + | 04/16/ | Office | Cardiology | Alin Anderson | | | 2019 | Visit | | MD Cheryl Arreguin | | | | | | [address] | | | | | | [place] [address] | | | | | | [phone] | | | | | | | [...] [place] | | | | | | [address] | | | | | | | | +--------+ + + + + documented as of this encounter Visit Diagnoses Not on filedocumented in this encounter"
--- OUTSIDE RECORDS SUMMARY | ~2020-03-04 | XMS | Encounter Summary ---
Demographics + + + | Address | [address] | | | [place] [address] | + + + | Home Phone [...] [place] | | | | | [address] | | + + + + + Care Team Providers + +------+ + | Care Technology Professional Name | Role | Phone | [...] | | | | (moderate) | [place] [address] | [place] [address] | | | | | (HCC) | Phone: | Phone: | | | | | Procedures | [phone] | [phone] | | | | | MD OFFICE | Fax: | Fax: | | | | | OUTPATIENT | [phone] | [phone] | | | | | VISIT 25 [...] Description | +--------+---------+ + + + | 06/06/ | Office | [facility] [place] | [place], | Chronic kidney | | 2019 | Visit | NEPHROLOGY [address] | ADARSH [address] | disease, stage IV | | | | [address] | [address] | (severe) (HCC) | | | | [place], [place] | [address] [place] | (Primary Dx); | | | | [address] | [address] | Hypertension, renal | | | | [phone] | | disease, stage 1-4 | | | | | | or unspecified | | | | | | chronic kidney | | | | | | disease; Ischemic | | | | | | cardiomyopathy; | | | | | | Anemia in stage 3 | | | | | | chronic kidney | | | | | | disease (HCC); | | | | | | Secondary [...] + + + | Blood Pressure | 80/48 | 06/06/2019 11:47 AM | | | | | PDT | | + + + + + | Pulse | 57 | 06/06/2019 10:58 AM | | | | | PDT | | + + + + + | Temperature | - | - | | + + + + + | Respiratory Rate | - | - | | + + + + + | Oxygen Saturation | 97% | 06/06/2019 10:58 AM | | | | | PDT | | + + + + + | Inhaled Oxygen | - | - | | | Concentration | | | | + + + + + | Weight | 86.3 kg (190 lb 4.1 | 06/06/2019 10:58 AM | | | | oz) | PDT | | + + + + + | Height | - | - | | + + + + + | Body Mass Index | 28.1 | 03/24/2019 1:26 PM | | | | | PDT | | + + + + + documented in this encounter Patient Instructions Patient Instructions Lacho Mcghee ARNP - 06/06/2019 11:00 AM PDTI will speak wit h cardiology and primary care to figure out a plan due to low blood pressure and worsening r enal function. Recheck labs in 2 weeks. Please avoid taking NSAIDs. These are some commonly used NSAIDs: ibuprofen (Motrin,Advil), naproxen (Aleve, Naprosyn), celecoxib (Celebrex), indomethacin (Indocin), meloxicam (Mobic). Stay well hydrated with water, per cardiology recommended fluid restriction. documented in this encounter Progress Notes Lacho Mcghee ARNP - 06/06/2019 11:00 AM PDTFormatting of this note might be diff erent from the original. Nephrology Follow-up Visit Visit date: 06/06/2019 Primary care provider: Amy Olivares MD Follow-up type: 3 months HPI: Bob Will is a 63 y.o. male with chronic kidney disease likely due to hypertensi ve nephrosclerosis but also at risk for cardiorenal syndrome. 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 No lightheadedness or dizziness. Home blood pres sure has been usually 80s mmHg systolic, but ranges 85-102/65-70. 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 He says that he gets confused about medications sometimes because cardiology ma de a medication change and then his primary provider changed it back. He denies any shortnes s of breath or edema since last visit. Review of Systems Constitutional: Positive for fatigue (comes and goes). Negative for appetite change and une xpected weight change. Respiratory: Negative for shortness of breath. Cardiovascular: Negative for chest pain and leg swelling. Gastrointestinal: Negative for nausea and vomiting. Genitourinary: Negative for dysuria, frequency and hematuria. PMH: Patient Active Problem List Diagnosis Date Noted PAD (peripheral artery disease) ([facility]) Priority: High Note Last Updated: 01/06/2018 Segmental pressures 11/24/17 Abnormal left ankle brachial index of 0.91 consistent with s gurvinder segment disease. Chronic systolic CHF (congestive heart failure) ([facility]) 06/02/2019 Chronic kidney disease, stage III (moderate) ([facility]) 03/10/2019 Hypertension, renal disease, stage 1-4 or unspecified chronic kidney disease 03/10/2019 Secondary hyperparathyroidism ([facility]) 03/10/2019 Anemia in stage 3 chronic kidney disease ([facility]) 03/10/2019 Fatigue 09/17/2018 Note Last Updated: 09/17/2018 [...] return a diary or report any symptoms. Rhinorrhea 08/13/2018 COPD (chronic obstructive pulmonary disease) ([facility]) 05/14/2018 Dyspnea 05/01/2018 Actinic keratosis 04/14/2018 Basal cell carcinoma of lower extremity 04/14/2018 Benign neoplasm of skin 04/14/2018 Hypercholesterolemia 04/14/2018 Metabolic syndrome X 04/14/2018 Neoplasm of uncertain behavior of skin of trunk 04/14/2018 Polyp of colon 04/14/2018 GERD (gastroesophageal reflux disease) 11/12/2017 LINOLEUM FLOOR INSTALLER-D (AICD) Medtronic 10/16/17 [facility] Wilner 10/19/2017 Note Last Updated: 11/11/2017 MODEL NAME MODEL# SERIAL# DATE IMPLANTED GENERATOR Medtronic [id number] 10/16/17 RV LEAD Medtronic [id number] 10/16/17 A LEAD Medtronic [id number] 10/16/17 Coronary Sinus LEAD Medtronic [id number] 10/16/17 Indication: ischemic cardiomyopathy with reduced EF 30-35% Implantable defibrillator reprogramming/check 10/19/2017 H/O atrial flutter 10/19/2017 Acute on chronic [...] 05/26/2017 Note Last Updated: 04/05/2018 S/P Medtronic LINOLEUM FLOOR INSTALLER-D 10-16-17 Dr Darby, [facility] Pet Scan 10/13/17 shows No Significant tracer [...] continued to deteriorate. Coronary artery disease involving lime coronary artery of lime heart without angina pectoris 04/06/2017 Note Last Updated: 05/26/2018 NM on 05/09/2018 shows Decreased uptake on stress and rest of the anterior wall, septum and apex consistent with infarct, dilation of the left ventricular cavity consistent with ische ev cardiomyopathy, (High risk, left ventricular ejection fraction is calculated at 18%, Edw kimberlee, Sy DO. CV on 05/19/2018 shows 95% stenosis of [...] with normal respiratory collapse. Acute anterior wall MT (HCC) 04/03/2017 Note Last Updated: 10/20/2017 Transthoracic [...] of organic origin 03/15/2009 Neck pain 09/07/2008 Outpatient Medications Marked as Taking for the 06/06/19 encounter (Office Visit) with ADARSH Cloud Medication Sig Dispense Refill acetaminophen (TYLENOL) 500 [...] mg by mouth Daily. Cholecalciferol (VITAMIN D-3) 36482 units CAPS Take by mouth Once a [...] Taking 2.5 mg tablet only on . metoprolol succinate (TOPROL-XL) 25 mg 24 hr tablet Take 1 tablet by mouth Daily. (Gela ent taking differently: Take 12.5 mg by mouth Daily.) 30 tablet 11 nitroglycerin (NITROSTAT) 0.4 mg SL [...] Comments) Twitching and numbness of arm BP (!) 80/50 | Pulse 57 | Wt 86.3 kg (190 lb 4.1 oz) | SpO2 97% | BMI 28.10 kg/m Physical Exam Constitutional: He is oriented to person, place, and time. He appears well-developed and we ll-nourished. No distress. Neck: Neck supple. Cardiovascular: Normal rate and regular rhythm. Exam reveals no gallop and no friction rub. No murmur heard. Pulmonary/Chest: Effort normal. No respiratory distress. He has no wheezes. He has no rhonc hi. He has rales (bases). Abdominal: Soft. Bowel sounds are normal. Musculoskeletal: He exhibits no edema (Lower extremities). Neurological: He is alert and oriented to person, place, and time. Skin: Skin is warm. No rash noted. Psychiatric: His speech is normal. Vitals reviewed. Reviewed labs with patient. Abstract on 06/06/2019 Component Date Value Ref Range Status Ferritin, External 05/31/2019 120.5 Final Iron Binding Capacity, External 05/31/2019 476 Final Iron Saturation, External 05/31/2019 26.7 Final Iron, External 05/31/2019 127.03 Final Abstract on 06/03/2019 Component Date Value Ref Range Status Creatinine, External 05/31/2019 3* 0.7 - 1.25 Final eGFR, External 05/31/2019 21 Final WBC, External 05/31/2019 6.6 4.5 - 11 Final HGB, External 05/31/2019 12.6* 13.5 - 18 Final HCT, External 05/31/2019 37.9* 41 - 50 Final PLT, External 05/31/2019 158 140 - 440 Final RBC, External 05/31/2019 4.11* 4.3 - 5.7 Final MCV, External 05/31/2019 92 81 - 99 Final RDW, External 05/31/2019 19* 10.5 - 15 Final Sodium, External 05/31/2019 136 132 - 143 Final Potassium, External 05/31/2019 3.3* 3.6 - 5.1 Final Chloride, External 05/31/2019 90* 95 - 112 Final Carbon Dioxide, External 05/31/2019 33* 19 - 31 Final Calcium, External 05/31/2019 9.3 8.5 - 10.3 Final Phosphorus, External 05/31/2019 4.9 2.5 - 5 Final Albumin, External 05/31/2019 4.2 3.5 - 5 Final Glucose, External 05/31/2019 127* 70 - 100 Final BUN, External 05/31/2019 96* 6 - 23 Final ASSESSMENT AND PLAN: 1. Chronic kidney disease, stage IV (severe) (HCC) CKD likely due to hypertensive nephrosc lerosis though he is also at risk for cardiorenal syndrome. Serum creatinine is trending up. Concern for acute change due to renal hypoperfusion in lig ht of persistent hypotension. Also may be progression of CKD. Mild hypokalemia on potassium supplement. Discussed increasing supplement versus increasing high potassium foods in diet. He will try dietary changes first. He has not been eating man y fresh fruits/vegetables lately. Discussed the challenging balance between cardiology and nephrology problems. Will plan on communicating with cardiology and primary care regarding final plan. Recommend consistent hydration, within fluid restriction as instructed by cardiology. Avoid nephrotoxins. Recheck labs in 2 weeks: BMP. 2. Hypertension, renal disease, stage 1-4 or unspecified chronic kidney disease Blood pres sure is low. Patient is asymptomatic. Edema is controlled. 3. Ischemic cardiomyopathy/CAD Stable for the past few months. Historically has had frequen t hospitalizations for heart failure exacerbations. Currently on torsemide, metolazone, low dose JULIAN inhibitor, statin and aspirin. Followed by cardiology. Discussed with current cardiology provider, ADARSH Stevens regarding possible medi cation changes due to hypotension. She recommends stopping metoprolol for now. If diuretics are dialed back, likely patient will have increased fluid retention again. 4. Anemia in stage 3 chronic kidney disease (HCC) Anemia has improved, Hb now >12. Iron is replete. 5. Secondary hyperparathyroidism (HCC) Serum calcium and phosphorus are fine. Return in about 3 months (around 09/05/2019). Labs in 2 weeks: BMP Labs prior to next visit: Renal panel, urine protein/creatinine ratio Patient verbalized agreement and understanding of above plan. 25 minutes spent face to face with patient with greater than 50% of time in counseling, edu cation and coordination of care as noted above. CC: Amy Olivares MD documented i n this encounter Plan of Treatment +--------+ + + + + | Date | Type | Specialty | Care Team | Description | +--------+ + + + + | 03/12/ | Office | Nephrology | Litzy | | | 2019 | Visit | | [address]ARSH [address] | | | | | | [address] | | | | | | [address] [place], [place] | | | | | | [address] | | | | | | | | +--------+ + + + + | 04/16/ | Office | Cardiology | Alin Anderson | | 2019 | Visit | | [address] | | | | | | [address] | | | | | | [place] [address] | | | | | | [phone] | | | | | | | | +--------+ + + + + | 04/16/ | Procedure | Cardiology | | | | 2019 | visit | | | | +--------+ + + + + | 04/25/ | Office | Cardiology | Rocio Pearl, | | | 2019 | Visit | | MD Cheryl [address]RE[address] | | | | | | [place] | | | | | | [address] | | | | | | | | +--------+ + + + + documented as of this encounter Procedures + +--------+ + + + | Procedure Name | Priori | Date/Time | Associated Diagnosis | Comments | | | ty | | | | + +--------+ + + + | LABS - EXTERNAL SCAN | | 06/20/2019 | | Results for this | | | | 12:00 AM | | procedure are in the | | | | PDT | | results section. | + +--------+ + + + | POCT URINALYSIS, | Routin | 06/06/2019 | Chronic kidney | Results for this | | AUTO WITH CONF | e | 11:07 AM | disease, stage IV | procedure are in the | | | | PDT | (severe) (HCC) | results section. | + +--------+ + + + documented in this encounter Results LABS - EXTERNAL SCAN (06/20/2019 12:00 AM PDT) + + + | Narrative | Performed At | + + + | Ordered by an | | | unspecified provider. | | + + + POCT Urinalysis (06/06/2019 11:07 AM PDT) + + + + + + | Component | Value | Ref Range | Performed | Pathologist | | | | | At | Signature | + + + + + + | Color, UA, | Light Yellow | Yellow, Light | | | | POC | | Yellow | | | + + + + + + | Clarity, | Clear | | | | | UA, POC | | | | | + + + + + + | Glucose, | Negative | Negative | | | | UA, POC | | | | | + + + + + + | Bilirubin, | Negative | Negative | | | | UA, POC | | | | | + + + + + + | Ketones, | Negative | Negative, 100 | | | | UA, POC | | mg/dL | | | + + + + + + | Specific | 1.010 | 1.001 - 1.030 | | | | [place], | | | | | | UA, POC | | | | | + + + + + + | Blood, UA, | Negative | Negative | | | | POC | | | | | + + + + + + | pH, UA, POC | 6.5 | 5.0, 6.0, 7.0, | | | | | | 8.0, 5.5, 6.5, | | | | | | 7.5 | | | + + + + + + | Protein, | Negative | Negative | | | | UA, POC | | | | | + + + + + + | Urobilinoge | 0.2 | 0.2, Negative, | | | | n, UA, POC | | Normal, < 0.2 | | | | | | mg/dL, 1 mg/dL, | | | | | | < 0.2 E.U./dl, | | | | | | 1.0 E.U./dL, | | | | | | 0.2 mg/dL | | | + + + + + + | Nitrite, | Negative | Negative | | | | UA, POC | | | | | + + + + + + | Leukocyte | Negative | Negative | | | | Esterase, | | | | | | UA, POC | | | | | + + + + + + | Reducing | | | | | | Substances, | | | | | | Urine | | | | | + + + + + + | Bilirubin | | | | | | Confirmatio | | | | | | n by | | | | | | Ictotest, | | | | | | Urine | | | | | + + + + + + | Remark | | | | | + + + + + + + + | Specimen | + + | Urine | + + documented in this encounter [...] ischemic heart disease | + + | Anemia in stage 3 chronic kidney disease (HCC) | + + | Secondary hyperparathyroidism (HCC) Secondary hyperparathyroidism (of renal origin) | + + documented in this encounter
--- OUTSIDE RECORDS SUMMARY | ~2020-03-04 | XMS | Encounter Summary ---
Demographics + + + | Address | [address] | | | [place] [address] | + + + | Home Phone [...] [place], [place] | | | | | [address] | | + + + + + Care Team Providers + +------+ + | Care Wreath Machine Operator Name | Role | Phone | + +------+ + PCP | Unavailable | + +------+ + Reason for Visit + +--------+ + | Reason | Onset | Comments | | | Date | | + +--------+ + | Blood Pressure | 11/18/ | | | | 2019 | | + +--------+ + Encounter Details +--------+ + + + + | Date | Type | Department | Care Team | Description | +--------+ + + + + | 11/18/ | Telephone | [facility] | Jenny, | Blood Pressure | | 2018 | | CARDIOLOGY [address] | Hansa REGULATORY ADMINISTRATOR [address] | | | | | [place], | [place], | | | | | [place] [address] | [place] [address] | | | | | [phone] | [phone] | | | | | | | [...] Telephone Encounter - Lilian Machado RN - 11/25/2018 2:12 PM PDTBob is notified, medica tion list is updated. He takes Entresto 49/51mg twice daily and Metoprolol 50mg twice daily. ...........................................Lilian Machado, RN on 11/25/18 at 14:12 elephone Encounter - Suzanne Cheng RN - 11/23/2018 10:51 AM PDTLeft message on voicemail to return call ..........................................Suzanne Cheng RN on 11/23/18 at 10:51 elephone EncounHansa El ARNP - 11/19/2018 5:54 PM PDT1. Please verify metoprolol dose and Entresto dose that patient is taking. 2. Continue medications as planned Electronically signed by: ADARSH Stevens 11/19/2018 17:55 elephone Pamela Gasca, Linux Unix Administrator - 11/18/2018 5:32 PM PDTFormatting of this note robyn ht be different from the original. Next Visit: Blood pressure log received from patient as follows: Medication Change: Date BP AM Pulse AM BP PM Pulse PM 10/25/2018 110/72 75 112/75 77 10/26/2018 108/75 78 112/75 78 10/27/2018 108/72 8 115/65 78 10/28/2018 110/75 76 112/78 78 10/29/2018 115/72 78 112/78 78 10/30/2018 112/68 75 112/75 78 2018 110/75 78 112/75 78 11/01/2018 105/70 75 110/72 75 11/02/2018 110/72 78 105/72 75 11/03/2018 108/72 78 105/78 75 11/04/2018 110/72 78 102/75 78 11/05/201858 63 106/58 63 11/06/2018 108/59 65 108/60 70 Additional Comments: Jose Carlos pritchard in this encounter Plan of Treatment +--------+ [...] F | | | | | | [place] [address] | | | | | | [phone] | | | | | | | [...] [place] | | | | | | [address] | | | | | | | | +--------+ + + + + documented as of this encounter Visit Diagnoses Not on filedocumented in this encounter"
--- OUTSIDE RECORDS SUMMARY | ~2020-03-04 | XMS | Encounter Summary ---
Demographics + + + | Address | [address] | | | [place] [address] | + + + | Home Phone | | + + + | Preferred Language | Unknown | + + + | Marital Status | | + + + | Voodoo Affiliation | Unknown | + + + | Race | Unknown | + + + | Ethnic Group | Unknown | + + + Author + + + | Author | [facility] | | | and [place] | + + + | Organization | [facility] | | | and [place] | + + + | Address | Unknown | + + + | Phone | Unavailable | + + + Support + + + + + | Name | Relationship | Address | Phone | + + + + + | [place] | ECON | [place], [place] | | | | | [address] | | + + + + + Care Team Providers + +------+ + | Care Parking Attendant Name | Role | Phone | [...] Echo | | | | | | [place], | [address] [place] | | | | | Cardiomyopat | [place], PROPERTY CONSULTANT | [place], | | | | | hy, | [address] | [place] | | | | | unspecified | [place] | [address] | | | | | type (HCC) | [place], | Phone: | | | | | Coronary | [place] | [phone] | | | | | artery | [address] | Fax: | | | | | disease, | Phone: | [phone] | | | | | angina | [phone] | | | | | | presence | Fax: | | | | | | unspecified, | [phone] | | | | | | unspecified | | | | | | | vessel or | | | | | | | lesion type, | | | | | | | unspecified | | | | | | | whether | | | | | | | [place] or | | | | | | | transplanted | | | | | | | heart | | | | | | | Procedures | | | | | | | ECHO | | | | | | | Complete [place] | | | | | | | ECHO HEART | | | | | | | XTHORACIC,[place] | | | | | | | MPLETE W | | | | | | | [place]ER [place] | | | | | | | [...] + + | 06/04/ | Hospital | [facility] | Jenny, | Cardiomyopathy, | | 2017 | Encounter | [facility] ECHO [address] | ADARSH Sy [address] | unspecified type | | | | [place] | [place], | ([facility]); Coronary | | | | [place] [address] | [place] [address] | artery disease, | | | | [phone] | [phone] | angina presence | | | | | | unspecified, | | | | | [place], | unspecified vessel | | | | | Technologist | or lesion type, | | | | | | unspecified whether | | | | | | [place] or | | | | | | [...] | 07/06/ | Office | Nephrology | Litzy, | | | 2019 | Visit | | ADARSH [address] | | | | | | [address] | | | | | | [address] | | | | | | [address] | | | | | | | | +--------+ + + + + | 04/16/ | Office | Cardiology | Alin Anderson | | | 2019 | Visit | | MD Cheryl [address] | | | | | | [address] | | | | | | [place] [address] | | | | | | [phone] | | | | | | | [...] [place] | | | | | | [address] | | | | | | | [...] | | | PDT | ([facility]) Coronary | results section. | | | | | artery disease, | | | | | | angina presence | | | | | | unspecified, | | | | | | unspecified vessel | | | | | | or lesion type, | | | | | | unspecified whether | | | | | | [place] or | | | | | | [...] Number J Patient Number | | | [id number] Date of Study 06/04/2017 Visit Number | | | [id number] Referring | | | Physician THERESE SY Number Date of 1955 | | | Learning And Development Director CHUCK [place]VER[place], | | | RD Age | | | 61 year(s) Interpreting LAUREN | | | MD NEMO | | | Scale Manager Gender Male Nurse | | | Stress Lean Manufacturing Leader Procedure | | | Type of Study TTE procedure: ECHO Complete. Procedure dateDate: | | | 06/04/2017Start: 07:51 AM Technical Quality: Good visualizationStudy | | | Location: Echo LabIndications: CARDIOMYOPATHY 425.4/ I42.9 and cAD | | | EMMONAK CORONARY TYTWZV563.01/ I25.10.Patient Status: RoutineHeight: 70 | | | [...] Structures | | | Left Atrium EF Dbelyjqir14% Left Ventricle Diastolic | | | Dimension: [...] | | | | | | EF Gwatinvhm45% | | | | | | Left Ventricle | | | | | | Diastolic Dimension: 5.6 cm | | | Septum Diastolic: 0.8 cm | | | PW Diastolic: 0.9 cm | | | EF Calculated: 53% | | | | | + + --+ + + | Procedure Note | + + | Sebastian, Rad Results In - 06/04/2017 9:18 AM [facility] Transthoracic Echocardiography Report | | (TTE) Demographics Patient Name MIKE VELASQUEZ Room Number J Patient | | Number [id number] Date of Study 06/04/2017 Visit Number [id number] | | Referring Physician THERESE SY Number Date of | | 1955 Learning And Development Director CHUCK VALVERDE, | | [facility] Age 61 year(s) Interpreting | | LAUREN CHESTER MD Scale Manager Gender Male | | Nurse Stress TechnicianProcedureType of Study | | TTE procedure: ECHO Complete.Procedure dateDate: 06/04/2017Start: 07:51 AMTechnical | | Quality: Good visualizationStudy Location: Echo LabIndications: CARDIOMYOPATHY 425.4/ | | I42.9 and cAD EMMONAK CORONARY EGDNET904.01/ I25.10.Patient Status: RoutineHeight: 70 | | inchesWeight: [...] > 50%.Structures | | Left Atrium EF Ejoflpqqb46% Left Ventricle Diastolic Dimension: 5.6 cm Septum [...] Left Atrium | | | | EF Rjwmsficw00% | | | | Left Ventricle | [...] or lesion | | type, unspecified whether [place] or transplanted heart | + + documented in this encounter"
--- OUTSIDE RECORDS SUMMARY | ~2020-03-04 | XMS | Encounter Summary ---
Demographics + + + | Address | [address] | | | [place] [address] | + + + | Home Phone [...] [place], [place] | | | | | [address] | | + + + + + Care Team Providers + +------+ + | Care Consumer Insights Specialist Name | Role | Phone | [...] | | involving | [address] | [address] [place] | | | | | [place] | [address] [address] | [place] | | | | | coronary | [address] | [address] | | | | | artery of | Phone: | Phone: | | | | | [place] heart | [phone] | [phone] | | | | | without | Fax: | Fax: | | | | | angina | [phone] | [phone] | | | | | pectoris | | | +--------+ + + + + + Encounter Details +--------+---------+ + + + | Date | Type | Department | Care Team | Description | +--------+---------+ + + + | 11/23/ | Office | [facility] | RahulyazshirazRandy, | Acute on chronic | | 2019 | Visit | MED CTR [facility] | MD [address] | systolic congestive | | | | REHABILITATION [address] | [place], | heart failure (HCC) | | | | [address] [place] | [place] [address] | (Primary Dx) | | | | [place] [address] | [phone] | | | | | [phone] | | | +--------+---------+ + + + [...] Mchugh RRT - 11/23/2018 10:00 AM PDT [facility] [address] [place] [address] Cardiac Rehab Date: 11/23/2018 Patient Information Patient [...] | | | | | | [facility] | | | | | | [address] | | | | | | [id number] | | | | | | | | +--------+ + + + + | 04/16/ | Office | Cardiology | Alin Anderson | | | 2019 | Visit | | MD Cheryl Arreguin | | | | | | [address] | | | | | | [place] [address] | | | | | | [phone] | | | | | | | [...] [place] | | | | | | [id number] | | | | | | | | +--------+ + + + + documented as of this encounter Visit Diagnoses + + | Diagnosis | + + | Acute on chronic systolic congestive heart failure (HCC) - Primary Acute on chronic | | systolic heart failure | + + documented in this encounter"
--- OUTSIDE RECORDS SUMMARY | ~2020-03-04 | XMS | Encounter Summary ---
Demographics + + + | Address | [address] | | | [place] [address] | + + + | Home Phone [...] [place] | | | | | [address] | | + + + + + Care Team Providers + +------+ + | Care Presto Log Operator Name | Role | Phone | + +------+ + | Amy Olivares MD | PCP | | + +------+ + Encounter Details +--------+ + + + + | Date | Type | Department | Care Team | Description | +--------+ + + + + | 09/01/ | Abstract | [facility] | [place], | | | 2018 | | NEPHROLOGY [address] | [address] | | | | | [address] | [address] | | | | | [place], [place] | [address] [place], [place] | | | | | [address] | [address] | | | | | [phone] | | | +--------+ + + + [...] | | | | | [facility] | | | | | | [address] | | | | | | [address] | | | | | | | | +--------+ + + + + | 04/16/ | Office | Cardiology | Alin Anderson | | | 2019 | Visit | | MD Cheryl Arreguin | | | | | | [address] | | | | | | [place] [address] | | | | | | [phone] | | | | | | | [...] [place] | | | | | | [address] | | | | | | | | +--------+ + + + + documented as of this encounter Procedures + +--------+ + + + | Procedure Name | Priori | Date/Time | Associated Diagnosis | Comments | | | ty | | | | + +--------+ + + + | EXTERNAL LAB: DONTE | Routin | 08/30/2019 | | Results for this | | | e | | | procedure are in the | | | | | | results section. | + +--------+ + + + | EXTERNAL LAB: | Routin | 08/30/2019 | | Results for this | | GLUCOSE | e | | | procedure are in the | | | | | | results section. | + +--------+ + + + | EXTERNAL LAB: | Routin | 08/30/2019 | | Results for this | | ALBUMIN | e | | | procedure are in the | | | | | | results section. | + +--------+ + + + | EXTERNAL LAB: | Routin | 08/30/2019 | | Results for this | | PHOSPHORUS | e | | | procedure are in the | | | | | | results section. | + +--------+ + + + | EXTERNAL LAB: | Routin | 08/30/2019 | | Results for this | | CALCIUM | e | | | procedure are in the | | | | | | results section. | + +--------+ + + + | EXTERNAL LAB: CARBON | Routin | 08/30/2019 | | Results for this | | DIOXIDE | e | | | procedure are in the | | | | | | results section. | + +--------+ + + + | EXTERNAL LAB: | Routin | 08/30/2019 | | Results for this | | CHLORIDE | e | | | procedure are in the | | | | | | results section. | + +--------+ + + + | EXTERNAL LAB: | Routin | 08/30/2019 | | Results for this | | POTASSIUM | e | | | procedure are in the | | | | | | results section. | + +--------+ + + + | EXTERNAL LAB: SODIUM | Routin | 08/30/2019 | | Results for this | | | e | | | procedure are in the | | | | | | results section. | + +--------+ + + + | EXTERNAL LAB: | Routin | 08/30/2019 | | Results for this | | PROTEIN/CREATININE | e | | | procedure are in the | | RATIO | | | | results section. | + +--------+ + + + | EXTERNAL LAB: EGFR | Routin | 08/30/2019 | | Results for this | | | e | | | procedure are in the | | | | | | results section. | + +--------+ + + + | EXTERNAL LAB: | Routin | 08/30/2019 | | Results for this | | CREATININE | e | | | procedure are in the | | | | | | results section. | + +--------+ + + + documented in this encounter Results External Lab: Protein/Creatinine Ratio (08/30/2019) + +-------+ + + + | Component | Value | Ref Range | Performed | Pathologist | | | | | At | Signature | + +-------+ + + + | Protein/Cre | 0.101 | 0.2 | | | | atinine | | | | | | Ratio, | | | | | | External | | | | | + +-------+ + + + + + | Specimen | + + | | + + External Lab: BUN (08/30/2019) + +-------+ + + + | Component | Value | Ref Range | Performed | Pathologist | | | | | At | Signature | + +-------+ + + + | BUN, | 44 | | | | | External | | | | | + +-------+ + + + External Lab: Glucose (08/30/2019) + +-------+ + + + | Component | Value | Ref Range | Performed | Pathologist | | | | | At | Signature | + +-------+ + + + | Glucose, | 120 | | | | | External | | | | | + +-------+ + + + External Lab: Albumin (08/30/2019) + +-------+ + + + | Component | Value | Ref Range | Performed | Pathologist | | | | | At | Signature | + +-------+ + + + | Albumin, | 4.4 | | | | | External | | | | | + +-------+ + + + External Lab: Phosphorus (08/30/2019) + +-------+ + + + | Component | Value | Ref Range | Performed | Pathologist | | | | | At | Signature | + +-------+ + + + | Phosphorus, | 5.0 | | | | | External | | | | | + +-------+ + + + External Lab: Calcium (08/30/2019) + +-------+ + + + | Component | Value | Ref Range | Performed | Pathologist | | | | | At | Signature | + +-------+ + + + | Calcium, | 9.5 | | | | | External | | | | | + +-------+ + + + External Lab: Carbon Dioxide (08/30/2019) + +-------+ + + + | Component | Value | Ref Range | Performed | Pathologist | | | | | At | Signature | + +-------+ + + + | Carbon | 33 | | | | | Dioxide, | | | | | | External | | | | | + +-------+ + + + External Lab: Chloride (08/30/2019) + +-------+ + + + | Component | Value | Ref Range | Performed | Pathologist | | | | | At | Signature | + +-------+ + + + | Chloride, | 92 | | | | | External | | | | | + +-------+ + + + External Lab: Potassium (08/30/2019) + +-------+ + + + | Component | Value | Ref Range | Performed | Pathologist | | | | | At | Signature | + +-------+ + + + | Potassium, | 3.7 | | | | | External | | | | | + +-------+ + + + External Lab: Sodium (08/30/2019) + +-------+ + + + | Component | Value | Ref Range | Performed | Pathologist | | | | | At | Signature | + +-------+ + + + | Sodium, | 138 | | | | | External | | | | | + +-------+ + + + External Lab: eGFR (08/30/2019) + +-------+ + + + | Component | Value | Ref Range | Performed | Pathologist | | | | | At | Signature | + +-------+ + + + | eGFR, | 28 | | | | | External | | | | | + +-------+ + + + + + | Specimen | + + | Blood | + + External Lab: Creatinine (08/30/2019) + +-------+ + + + | Component | Value | Ref Range | Performed | Pathologist | | | | | At | Signature | + +-------+ + + + | Creatinine, | 2.39 | | | | | External | | | | | + +-------+ + + + + + | Specimen | + + | Blood | + + documented in this encounter Visit Diagnoses Not on filedocumented in this encounter"
--- OUTSIDE RECORDS SUMMARY | ~2020-03-04 | XMS | Encounter Summary ---
Demographics + + + | Address | [address] | | | [place] [address] | + + + | Home Phone [...] [place] | | | | | [address] | | + + + + + Care Team Providers + +------+ + | Care Music Leader Name | Role | Phone | + [...] | | involving | [address] | [address] [place] | | | | | [place] | [place], [place] | [place] | | | | | coronary | [address] | [address] | | | | | artery of | Phone: | Phone: | | | | | [place] heart | [phone] | [phone] | | | | | without | Fax: | Fax: | | | | | angina | [phone] | [phone] | | | | | pectoris | | | +--------+ + + + + + Encounter Details +--------+---------+ + + + | Date | Type | Department | Care Team | Description | +--------+---------+ + + + | 08/24/ | Office | [facility] | Randy Figueroa, | Coronary artery | | 2018 | Visit | MED CTR CARDIAC | MD [address] | disease, angina | | | | REHABILITATION [address] | [place], | presence | | | | [address] [place] | [place] [address] | unspecified, | | | | [place] [address] | [phone] | unspecified vessel | | | | [phone] | | or lesion type, | | | | | | unspecified whether | | | | | | [place] or | | | | | | [...] of this encounter Progress Notes Lorelei Cruz, [employer]ROLEUM TRANSPORT DRIVER - 08/24/2018 10:00 AM PSTFormatting of this note might be different fr om the original. [facility]ATION [address] [facility] [address] Cardiac Rehab Date: 08/24/2018 Patient Information Patient Name: Bob Will Date of : 1955 Age: 62 y.o. Encounter Diagnoses Code Name Primary? I25.10 Coronary artery disease, angina presence unspecified, unspecified vessel or lesi on type, unspecified whether [place] or transplanted heart Yes Number of Visits Approved: 34 Taken Medications Today? Yes Any Changes in Medications? No Any Problems to Report? No Denies any adverse symptoms during exercise. Ashok has been feeling extremely fatigued lately and his heart rate was variable only to slightly greater than 60 even with vigorous exercis e. I am sending a message to Dr. Kay regarding this. Ventricular paced rhythm without ectopy. Pre O2: 95%, Ex O2: 91%. SBP with rise during exer tion. Compliant with medications and therapeutic lifestyle changes. Continue monitored exercise. Any abnormal vital signs or rhythm strips will be reported in progress note. Electronically signed by: Lorelei Cruz RRT, 08/24/2018 12:53 Patient Name: Bob Will/: 1955/ ly signed by Lorelei Cruz RRT at 08/24/2018 12:56 PM PSTdocumented in this encounter Plan of Treatment +--------+ + + + + | Date | Type | Specialty | Care Team | Description | +--------+ + + + + | 03/12/ | Office | Nephrology | [facility], | | | 2019 | Visit | | [address] | | | | | | [address] [facility] [facility] | | | | | | [address] | | | | | | [address] | | | | | | | | +--------+ + + + + | 04/16/ | Office | Cardiology | MonicaAlin | | | 2019 | Visit | | MD Cheryl [address]reg[address] | | | | | | [address] | | | | | | [place] [address] | | | | | | [phone] | | | | | | | [...] [place] | | | | | | [address] | | | | | | | | +--------+ + + + + documented as of this encounter Visit Diagnoses + + | Diagnosis | + + | Coronary artery disease, angina presence unspecified, unspecified vessel or lesion | | type, unspecified whether [place] or transplanted heart - Primary | + + documented in this encounter"
--- OUTSIDE RECORDS SUMMARY | ~2020-03-04 | XMS | Encounter Summary ---
Demographics + + + | Address | [address] | | | [place] [address] | + + + | Home Phone [...] [place] | | | | | [address] | | + + + + + Care Team Providers + +------+ + | Care Nuclear Security Officer Name | Role | Phone | + +------+ + PCP | Unavailable | + +------+ + Encounter Details +--------+ + + + + | Date | Type | Department | Care Team | Description | +--------+ + + + + | 05/18/ | Abstract | Carol | Tyra Armstrong | | | 2017 | | [facility] | | | | | Disease and | Coordinator | | | | | Transplant [address] | | | | | | [place] | | | | | | [address] | | | | | | [phone] | | | +--------+ + + + [...] | | | | | [address] [facility] [facility] | | | | | | [address] | | | | | | [address] | | | | | | | | +--------+ + + + + | 04/16/ | Office | Cardiology | Alin Anderson | | 2019 | Visit | | MD Cheryl [address]reg[address] | | | | | | [address] | | | | | | [place] [address] | | | | | | [phone] | | | | | | | [...] [place] | | | | | | [address] | | | | | | | | +--------+ + + + + documented as of this encounter Visit Diagnoses Not on filedocumented in this encounter"
--- OUTSIDE RECORDS SUMMARY | ~2020-03-04 | XMS | Encounter Summary ---
Demographics + + + | Address | [address] | | | [place] [address] | + + + | Home Phone [...] [place], [place] | | | | | [address] | | + + + + + Care Team Providers + +------+ + | Care Senior Risk Manager Name | Role | Phone | [...] | | involving | [address] | [place] | | | | | [place] | [address] | [place] | | | | | coronary | [address] | [address] | | | | | artery of | Phone: | Phone: | | | | | [place] heart | [phone] | [phone] | | | | | without | Fax: | Fax: | | | | | angina | [phone] | [phone] | | | | | pectoris | | | +--------+ + + + + + Encounter Details +--------+---------+ + + + | Date | Type | Department | Care Team | Description | +--------+---------+ + + + | 09/28/ | Office | [facility] | Carolina Lindarisa, | Coronary artery | | 2019 | Visit | MED CTR CARDIAC | MD [address] | disease, angina | | | | REHABILITATION [address] | [place], | presence | | | | [address] [place] [place] | [place] [address] | unspecified, | | | | [place] [address] | [phone] | unspecified vessel | | | | [phone] | | or lesion type, | | | | | | unspecified whether | | | | | | [place] or | | | | | | [...] of this encounter Progress Gael Ortega - 09/28/2018 10:00 AM PST [facility] RE[facility] [address] [place] [address] Cardiac Rehab Date: 09/28/2018 Patient Information Patient Name: Bob Will Date of : 1955 Age: 62 y.o. Encounter Diagnoses Code Name Primary? I25.10 Coronary artery disease, angina presence unspecified, unspecified vessel or lesi on type, unspecified whether [place] or transplanted heart Yes Z98.61 Post PTCA [...] 09/28/2018 11:36 Patient Name: Bob Will/: 1955/ ly signed by Gael Woo at 09/28/2018 11:38 AM PSTdocumented in this encounter Plan of Treatment +--------+ + + + + | Date | Type | Specialty | Care Team | Description | +--------+ + + + + | 03/12/ | Office | Nephrology | Litzy, | | | 2020 | Visit | | [address] | | | | | | [address] [facility] | | | | | | [address] | | | | | | [address] | | | | | | | | +--------+ + + + + | 04/16/ | Office | Cardiology | Alin Anderson | | | 2019 | Visit | | MD Cheryl Arreguin | | | | | | [address] | | | | | | [place] [address] | | | | | | [phone] | | | | | | | [...] [place] | | | | | | [address] | | | | | | | | +--------+ + + + + documented as of this encounter Visit Diagnoses + + | Diagnosis | + + | Coronary artery disease, angina presence unspecified, unspecified vessel or lesion | | type, unspecified whether [place] or transplanted heart - Primary | + + | Post PTCA Postsurgical percutaneous transluminal coronary angioplasty status | + + documented in this encounter"
--- OUTSIDE RECORDS SUMMARY | ~2020-03-04 | XMS | Encounter Summary ---
Demographics + + + | Address | [address] | | | [place] [address] | + + + | Home Phone [...] [place], [place] | | | | | [address] | | + + + + + Care Team Providers + +------+ + | Care Plastics Worker Name | Role | Phone | [...] | +--------+ + + + + | 09/05/ | Implant | [facility] | Randy Figueroa, | Remote Device | | 2018 | Monitor | CARDIOLOGY [address] [place] | Interrogation | | | | [place], | [place], | (Primary Dx); DOCTOR OF OPTOMETRY-[place] | | | | [place] [address] | [place] [address] | (AICD) [employer] | | | | [phone] | [phone] | 10/16/17 [facility] [place]; | | | | [...] encounter Procedure Notes Randy Figueroa MD - 09/05/2018 11:59 PM PSTAssociated Order(s): DEVICE INTERROGATION- R EMOTEProcedure(s): DEVICE INTERROGATION- REMOTEPre-Procedure Diagnose(s): Implantable defibr illator reprogramming/check; Biventricular ICD (implantable cardioverter-defibrillator) in hannah aldridge; Ischemic cardiomyopathyDate of Remote Interrogation: 07/20/18 Refer to Paceart documentation and remote PDF scanned into EPIC for remote interrogation re suljuan. Data collected by Kelly Rodriguez RN Presenting rhythm: sinus bradycardia atrial sensed ventricular paced between 56-58 beats. 0 mode switch episodes accounting for 0.0% of the time. No episodes. PVC singles <0.1/hour PVC runs <0.1/hour Histogram good. Battery longevity 9.2 years. Apparent normal and stable device function. Device interrogation due in office in March 2019 documented in this encounter Plan of Treatment +--------+ + + + + | Date | Type | Specialty | Care Team | Description | +--------+ + + + + | 03/12/ | Office | Nephrology | Juan Pablothalyocasta, | | | 2019 | Visit | | [address] | | | | | | [address] [facility] | | | | | [...] | | | | | [place] [address] | | | | | | [phone] | | | | | | | [...] [place] | | | | | | [address] | | | | | | | | +--------+ + + + + documented as of this encounter Procedures + +--------+ + + + | Procedure Name | Priori | Date/Time | Associated Diagnosis | Comments | | | ty | | | | + +--------+ + + + | DEVICE | Routin | 09/05/2018 | Remote Device | Results for this | | INTERROGATION- | e | 11:59 PM | Interrogation DOCTOR OF OPTOMETRY-D | procedure are in the | | REMOTE | | PST | ([facility]) [employer] | results section. | | | | | 10/16/17 EULOGIO Darby | | | | | | Ischemic | | | | | | cardiomyopathy | | + +--------+ + + + documented in this encounter Results Device Interrogation - Remote (09/05/2018 11:59 PM PST) + + + | Narrative | Performed At | + + + | Randy | [place] | | MD [place] 08/05/2018 14:13Date of Remote Interrogation: | | | 07/20/18 Refer to Paceart documentation and remote PDF scanned into | | | PSYCHIATRIC for remote interrogation results. Data collected by Kelly Samuel | | | ALFONSO Rodriguez Presenting rhythm: sinus bradycardia atrial sensed | | | ventricular paced between 56-58 beats.0 mode switch episodes | | | accounting for 0.0% of the time.No episodes. PVC singles | | | <0.1/hourPVC runs <0.1/hourHistogram good. Battery | | | longevity 9.2 years.Apparent normal and stable device | | | function.Device interrogation due in office in March 2019 | | |No episodes. | | |PVC singles <0.1/hour | | |PVC runs <0.1/hour | | |Histogram good. Battery longevity 9.2 years. | | |Apparent normal and stable device function. | | |Device interrogation due in office in March 2019 | | | | | + + [...] | cardiac defibrillator | + + | DOCTOR OF OPTOMETRY-D ASHLEE) Med[employer]onic 10/16/17 EULOGIO Darby | + + | Ischemic cardiomyopathy Other specified forms of chronic ischemic heart disease | + + documented in this encounter"
--- OUTSIDE RECORDS SUMMARY | ~2020-03-04 | XMS | Encounter Summary ---
Demographics + + + | Address | [address] | | | [place] [address] | + + + | Home Phone [...] [place] | | | | | [address] | | + + + + + Care Team Providers + +------+ + | Care Skate Shop Attendant Name | Role | Phone | [...] Description | +--------+---------+ + + + | 10/11/ | Office | [facility] | Amy Olivares V, | Chronic systolic CHF | | 2020 | Visit | MED CTR CARDIAC | MD [address] | (congestive heart | | | | REHABILITATION [address] | [address] [place], [place] | failure) ([facility]) | | | | [address] | [address] | (Primary Dx) | | | | [place] [address] | | | | | | [phone] | | | +--------+---------+ + + + [...] this encounter Progress Notes Gael Woo - 10/11/2019 9:00 AM PSTPatient tolerated exercise session without [...] [place] | | | | | | [address] | | | | | | | | +--------+ + + + + | 04/16/ | Office | Cardiology | Alin Anderson | | | 2019 | Visit | | MD Cheryl Arreguin | | | | | | [address] | | | | | | [place] [address] | | | | | | [phone] | | | | | | | [...] [place] | | | | | | [address] | | | | | | | | +--------+ + + + + documented as of this encounter Visit Diagnoses + + | Diagnosis | + + | Chronic systolic CHF (congestive heart failure) (HCC) - Primary | + + documented in this encounter"
--- OUTSIDE RECORDS SUMMARY | ~2020-03-04 | XMS | Encounter Summary ---
Demographics + + + | Address | [address] | | | [place] [address] | + + + | Home Phone | | + + + | Preferred Language | Unknown | + + + | Marital Status | | + + + | Hinduism Affiliation | NRP | + + + | Race | White | + + + | Ethnic Group | Not or | + + + Author + + + | Author | [facility] | + + + | Organization | [facility] | + + + | Address | Unknown | + + + | Phone | Unavailable | + + + Support + + + + + | Name | Relationship | Address | Phone | + + + + + | Venice Will | ECON | [address] | | | | | [place] [address] | | + + + + + Care Team Providers + +------+ + | Care Sex Offender Treatment Professional Name | Role | Phone | [...] Pharmacy | | | | | | [address] | | | | | | [place], [place] | | | | | | [address] | | | | | | [phone] | | | +--------+ + + + [...]
--- OUTSIDE RECORDS SUMMARY | ~2020-03-04 | XMS | Encounter Summary ---
Demographics + + + | Address | [address] | | | [place] [address] | + + + | Home Phone [...] [place] | | | | | [address] | | + + + + + Care Team Providers + +------+ + | Care Senior Tax Analyst Name | Role | Phone | + +------+ + | Amy Olivares MD | PCP | | + +------+ + Reason for Visit +--------+--------+ + | Reason | Onset | Comments | | | Date | | +--------+--------+ + | Other | 06/06/ | amiodarone protocol | | | 2019 | | +--------+--------+ + Encounter Details +--------+ + + + + | Date | Type | Department | Care Team | Description | +--------+ + + + + | 06/06/ | Telephone | [facility] | Jenny, | Other (amiodarone | | 2018 | | CARDIOLOGY [address] | [address] | protocol) | | | | [place], | [place], | | | | | [place] [address] | [place] [address] | | | | | [phone] | [phone] | | | | | | | [...] Telephone Encounter - Suzanne Cheng RN - 06/06/2019 1:43 PM PDTCalled patient carine hunt amiodarone protocol. Patient stated he is no longer going to be our patient. He will be seeing a diamond driller in [place]. A diamond driller comes twice a month to [place] from [facility] ..........................................Suzanne Cheng RN on 06/06/19 at 13:46 documented in thi s encounter Plan of Treatment +--------+ + + + + | Date | Type | Specialty | Care Team | Description | +--------+ + + + + | 03/12/ | Office | Nephrology | [facility], | | | 2019 | Visit | | [address] | | | | | | [address] [facility] | | | | | | [...] | | | | | [place] [address] | | | | | | [phone] | | | | | | | [...] [place] | | | | | | [address] | | | | | | | | +--------+ + + + + documented as of this encounter Visit Diagnoses Not on filedocumented in this encounter"
--- OUTSIDE RECORDS SUMMARY | ~2020-03-04 | XMS | Encounter Summary ---
Demographics + + + | Address | [address] | | | [place] [address] | + + + | Home Phone | | + + + | Preferred Language | Unknown | + + + | Marital Status | | + + + | Religion Affiliation | Unknown | + + + | Race | Unknown | + + + | Ethnic Group | Unknown | + + + Author + + + | Author | [facility] | | | and [place] | + + + | Organization | [facility] | | | and [place] | + + + | Address | Unknown | + + + | Phone | Unavailable | + + + Support + + + + + | Name | Relationship | Address | Phone | + + + + + | Venice Will | ECON | [place], [place] | | | | | [address] | | + + + + + Care Team Providers + +------+ + | Care Wound Care Coordinator Name | Role | Phone | [...] 2017 | | CARDIOLOGY [address] | [place], HIGH [employer]CHO[employer] SCIENCE TEACHER [address] | | | | | [place], | [place], | | | | | [place] [address] | [place] [address] | | | | | [phone] | [phone] | | | | | | | [...] | | | | [address] [place] | | | | | | [address] | | | | | | | | +--------+ + + + + | 04/16/ | Office | Cardiology | Alin Anderson | | | 2019 | Visit | | MD [address] | | | | | | [address] | | | | | | [place] [address] | | | | | | [phone] | | | | | | | [...] [place] | | | | | | [address] | | | | | | | | +--------+ + + + + documented as of this encounter Visit Diagnoses Not on filedocumented in this encounter"
--- OUTSIDE RECORDS SUMMARY | ~2020-03-04 | XMS | Encounter Summary ---
Demographics + + + | Address | [address] | | | [place] [address] | + + + | Home Phone | | + + + | Preferred Language | Unknown | + + + | Marital Status | | + + + | Judaism Affiliation | NRP | + + + | Race | White | + + + | Ethnic Group | Not or | + + + Author + + + | Author | [facility] | + + + | Organization | [facility] | + + + | Address | Unknown | + + + | Phone | Unavailable | + + + Support + + + + + | Name | Relationship | Address | Phone | + + + + + | Venice Mckeon | ECON | [address] | | | | | [place] [address] | | + + + + + Care Team Providers + +------+ + | Care Manager Of Medical Name | Role | Phone | + [...] | 2017 | Encounter | Services at [facility] | | | | | | [address] | | | | | | [place] | | | | | | [facility] | | | | | | [place], [place] | | | | | | [address] | | | | | | [phone] | | | +--------+ + + + [...] | + + + | Report ====== Executive Chef: Rodríguez Fortune ([id number])shubham | [facility] | | richy Calculation Clerk: shubham lockhart Fellow: shubham lockhart | RADIOLOGY | | Pick Up Operator: shubham lockhart Viewer: shubham lockhart Report Date: | CARDIAC IMAGING | | Oct 2017, 09:22:25 [facility] Patient ------- Patient: RON MCKEON | | | Acc #: [id number] | | | Ethnicity: N Status: Final [...] | | | Image Quality: Good Scanner Engraver Steel Plate: [employer] Scanner | | | Model: Restlet Scanner Serial Number: [id number] Scanner Software | | | Platform: [id number] Staff: Rodríguez Fortune Modality: MR | | | Indication Name: routine Protocol Name: CMR W Flows WO Contrast | | | Findings -------- Non-cardiac findings were reviewed by Dr. Curtis. | | | This exam was terminated prematurely and is lmiited to district scout executive images. | | | There are bilateral [...] Note | + + | Service Account, [employer] Res In Interface - 10/16/2017 9:22 AM PST | | Report======Executive Chef: Rodríguez Fortune ([id number]), shubham Rodriguezalyst: shubham | | Ronaldllow: shubham Garciaechnician: shubham oJhniewer: shubham | | [place] Date: 16 Oct 2017, 09:22:25 PSTPatient-------Patient: RON MCKEON | | JMedical Record Number: [id number] ID: [id number] #: [id number]: NStatus: | | Final ReportReport Number: [id number]: MaleBirthdate: 1955 (61 yrs)Study Date: 05 | | Oct 2017Study Description: CMR with Flows with ContrastReferring Physician: RAJIV | | HEITNERBlood Pressure: /Heart rate:Height (cm): 0Weight (kg): 89BMI (kg/m ): 0BSA | | (m ): 0 (Mosteller Formula)Image Quality: Crocodile Gold Engraver Steel Plate: [employer] | | Trig Medical Model: VetCompare Serial Number: [id number] Software Platform: | | [id number]: Rodríguez FortuneModality: MRIndication Name: routineProtocol Name: | | CMR W Flows WO ContrastFindings--------Non-cardiac findings were reviewed by | | Fuss.This exam was terminated prematurely and is lmiited to district scout executive images.There are | | bilateral pleural effusions. [...] Formula) | |Image Quality: Good | |Scanner Engraver Steel Plate: [employer] | |Scanner Model: Restlet | |Scanner Serial Number: [id number] | |Scanner Software Platform: 5.3.15.3.1.0 | |Staff: Rodríguez Fortune | |Modality: MR | |Indication Name: routine | |Protocol Name: CMR W Flows WO Contrast | |Findings | |-------- | |Non-cardiac findings were reviewed by Dr. Curtis. | |This exam was terminated prematurely and is lmiited to district scout executive images. | |There are bilateral pleural effusions. [...]
--- OUTSIDE RECORDS SUMMARY | ~2020-03-04 | XMS | Encounter Summary ---
Demographics + + + | Address | [address] | | | [place] [address] | + + + | Home Phone [...] [place], [place] | | | | | [address] | | + + + + + Care Team Providers + +------+ + | Care Recovery Collector Name | Role | Phone | [...] | | involving | [address] | [place] | | | | | chitina | [address] | [place] | | | | | coronary | [address] | [address] | | | | | artery of | Phone: | Phone: | | | | | chitina heart | [phone] | [phone] | | | | | without | Fax: | Fax: | | | | | angina | [phone] | [phone] | | | | | pectoris | | | +--------+ + + + + + Encounter Details +--------+---------+ + + + | Date | Type | Department | Care Team | Description | +--------+---------+ + + + | 12/02/ | Office | [facility] | Randy Figueroa, | Coronary artery | | 2019 | Visit | MED [facility] CARDIAC | MD [address] [place] | disease involving | | | | REHABILITATION [address] | [place], | chitina coronary | | | | [address] [place] | [place] [address] | artery of chitina | | | | [place] [address] | [phone] | heart without angina | | | | [phone] | | pectoris (Primary | | | [...] this encounter Progress Gael Ortega - 12/02/2018 10:00 AM PDT [facility] CARDIAC REHABILITATION [address] [place] [address] Cardiac Rehab Date: 12/02/2018 Patient Information Patient Name: Bob Will Date of : 1955 Age: 63 y.o. Encounter Diagnoses Code Name Primary? I25.10 Coronary artery disease involving chitina coronary artery of chitina heart without angina pectoris Yes Z98.61 Post [...] ly signed by Gael Woo at 12/02/2018 2:48 PM PDTdocumented in this encounter Plan of [...] [place] | | | | | | [address] | | | | | | | | +--------+ + + + + | 04/16/ | Office | Cardiology | Alin Anderson | | | 2019 | Visit | | MD [address] | | | | | | [address] | | | | | | [place] [address] | | | | | | [phone] | | | | | | | [...] [place] | | | | | | [address] | | | | | | | | +--------+ + + + + documented as of this encounter Visit Diagnoses + + | Diagnosis | + + | Coronary artery disease involving chitina coronary artery of chitina heart without | | angina pectoris - Primary | + + | Post PTCA Postsurgical percutaneous transluminal coronary angioplasty status | + + documented in this encounter"
--- OUTSIDE RECORDS SUMMARY | ~2020-03-04 | XMS | Encounter Summary ---
Demographics + + + | Address | [address] | | | [place] [address] | + + + | Home Phone [...] [place] | | | | | [address] | | + + + + + Care Team Providers + +------+ + | Care Youth Development Professional Name | Role | Phone | [...] | systolic CHF | [address] | [place], [place] | | | | | (congestive | [place], [place] | [address] Phone: | | | | | heart | [phone] | | | | | | failure) | [...] Description | +--------+---------+ + + + | 07/25/ | Office | [facility] | Alin Ayoub | Ischemic | | 2019 | Visit | CARDIOLOGY ITMANN | MD [address] | cardiomyopathy | | | | [address] | [address] | (Primary Dx); Status | | | | [place], [place] | [place] [address] | post internal | | | | [address] | [phone] | cardiac | | | | [phone] | | defibrillator | | | | | | procedure; Atrial | | | | | | flutter, unspecified | | | | | | type ([facility]); | | | | | | Thrombus of left | | | | | | atrial appendage; | | | | | | Ventricular | | | | | | tachycardia ([facility]); | | | | | | Sleep apnea, | | | | | | unspecified type | +--------+---------+ + + + Social History [...] + + + | Blood Pressure | 140/86 | 07/25/2019 2:22 PM | | | | | PST | | + + + + + | Pulse | 68 | 07/25/2019 2:22 PM | | | | | PST | | + + + + + | Temperature | - | - | | + + + + + | Respiratory Rate | - | - | | + + + + + | Oxygen Saturation | 96% | 07/25/2019 2:22 PM | | | | | PST | | + + + + + | Inhaled Oxygen | - | - | | | Concentration | | | | + + + + + | Weight | 88.5 kg (195 lb 1.6 | 07/25/2019 2:22 PM | | | | oz) | PST | | + + + + + | Height | 175.3 cm (5' 9") | 07/25/2019 2:22 PM | | | | | PST | | + + + + + | Body Mass Index | 28.81 | 07/25/2019 2:22 PM | | | | | PST | | + + + + + documented in this encounter Progress Notes Alin Ayoub MD - 07/25/2019 2:30 PM PSTFormatting of this note might be dif ferent from the original. Subjective: Referring MD: Rocio Pearl MD Chief Complaint Patient presents with Follow-up HPI: This is a 63 y.o. male who presents today for an initial evaluation given previous biv entricular pacemaker/ICD implantation. Mr. Will has a fairly extensive cardiac history and unfortunately he is not very good with any of the medical details. A lot of his cardia c decision-making was performed in [place] at times of acute illness and he has not followe d up with any of the assistant commissioner in [place] for some time. He has been on amiodarone for many years at 400 mg daily and he is not sure why he was placed on the medication. He denie s any ICD shocks in the past. He was referred to electrophysiology given his biventricular pacemaker/ICD implantation in 2018. He does not believe the device has been checked for gaye e time. He is not currently on any anticoagulation and does not recall being on anticoagula tion in the past. He denies any current chest pain, shortness of breath, dizziness, lighthe adedness, palpitations, or recent syncope. Past Medical History: Diagnosis Date Acute anterior wall NV (HCC) 04/03/2017 Angiography and stent 03/15/2017 successful PCI with placement of 3.0X23 stent in the distal LM and ostial LAD reducing a 100% stenotic lesion to 0% residual stenosis, successful PCI w ith placement of 2.5X18 stent in the ostial LCx reducing a 90% stenotic lesion to 0% resdual stenosis. Anemia in stage 3 chronic kidney disease (HCC) 03/10/2019 Atrial flutter (HCC) seen 09/24 as per chart - atypical - not on AC due to GI bleeds CAD (coronary artery disease) 04/06/2017 S/p LM ANY with PCI to LAD/Cx - recurrent ISR - last PCI 05/25 Cancer (HCC) COPD (chronic obstructive pulmonary disease) (HCC) GERD (gastroesophageal reflux disease) GI bleed noted as per chart records Hyperlipidemia Hypertension Ischemic cardiomyopathy LOUISA (obstructive sleep apnea) Post traumatic stress disorder 02/19/2012 Renal insufficiency cr 2.59 06/25 Status post internal cardiac defibrillator procedure S/p Medtronic Biv/ICD 10/25 Thrombus of left atrial appendage noted in cardiology notes - unclear history - possibly seen 03/23 at time of cardiogenic sh ock on ECMO Ventricular tachycardia (HCC) inducible on EP study 10/25 - amio Past Surgical History: Procedure Laterality Date ANGIOGRAM Bilateral 05/19/2018 Procedure: CV Vas LE Angio; Surgeon: Khurram Canas MD; Location: [facility] CV LAB ANGIOPLASTY Left 05/19/2018 Procedure: CV PTCA Only; Surgeon: Khurram Canas MD; Location: [facility] CV LAB CARDIAC CATHERIZATION N/A 10/03/2017 Procedure: CV Cor Angio; Surgeon: Delmer Dai MD; Location: [facility] CV LAB CARDIAC CATHERIZATION N/A 03/15/2017 Procedure: CV Cor Angio; Surgeon: Monse Ross MD; Location: [facility] CV LAB CARDIAC CATHERIZATION Left 05/19/2018 Procedure: CV RHC; Surgeon: Khurram Canas MD; Location: [facility] CV LAB CARDIAC CATHERIZATION Left 05/19/2018 Procedure: CV FFR/iFR; Surgeon: Khurram Canas MD; Location: [facility] CV LAB CARDIAC CATHERIZATION Left 05/19/2018 LM distal ISR, LAD ? stenosis, Cx 95-99% s/p PTCA, RCA LI ELBOW SURGERY Left GALLBLADDER SURGERY LEFT VENTRICULAR ASSIST DEVICE Right 05/19/2018 Procedure: CV PERC [facility] CIRC SUPPORT; Surgeon: Khurram Canas MD; Location: [facility] CV LAB NASAL SEPTUM SURGERY TONSILLECTOMY TRANSTHORACIC ECHOCARDIOGRAM 10/2018 EF 25-30%, anterior/anteroseptal/inferoseptal/inferior AK, mild TR, tr MR, mod LA dil, mil d RA dil, RVSP 26 UPPER GASTROINTESTINAL ENDOSCOPY N/A 10/05/2017 Procedure: EGD; Surgeon: Terry Weir MD; Location: [facility] MEDICAL PROCEDURE UNIT Family History Problem Relation Age of Onset Cancer Mother rectal Heart attack Father Kidney disease Neg Hx Social History Socioeconomic History Marital status: Spouse name: Not on file Number of children: Not on file Years of education: Not on file Highest education level: Not on file Tobacco Use Smoking status: Former Smoker Packs/day: 2.00 Years: 45.00 Pack years: 90.00 Types: Cigarettes Last attempt to quit: 03/08/2017 Years since quittin.3 Smokeless tobacco: Former User Substance and Sexual Activity Alcohol use: No Drug use: No Social History Narrative Caffeine: 1 1/2 cups of coffee Exercise: walking 20 To 30 min Review of Systems: Ten system review negative unless noted in HPI. Current Outpatient Medications Medication Sig Dispense Refill [...] (with breakfast & dinner). Cholecalciferol (VITAMIN D-3) 33073 units CAPS Take by mouth Once a [...] tablet Take 2.5 mg by mouth Daily. metoprolol succinate (TOPROL-XL) 25 mg 24 hr tablet Take 0.5 tablets by mouth Daily. 90 tablet 3 nitroglycerin (NITROSTAT) 0.[address] 1 tablet under the tongue every 5 shai janeth as needed for Chest pain. 25 tablet 3 potassium chloride (KLOR-CON) 10 mEq CR tablet Take 2 tablets by mouth 3 times daily. 1 80 tablet 5 raNITIdine (ZANTAC) 300 MG tablet Take 150 mg by mouth nightly. torsemide (DEMADEX) 20 mg tablet Take 60 mg by mouth 2 times daily. traMADol (ULTRAM) 50 mg tablet Take 150 mg by mouth Twice daily as needed. No current facility-administered medications for this visit. Allergies Allergen Reactions Ondansetron Other (See Comments) Twitching and numbness of arm Promethazine Other (See Comments) Twitching and numbness of arm Objective: Vitals: 07/25/19 1422 BP: 140/86 Pulse: 68 Weight: 88.5 kg (195 lb 1.6 oz) Height: 1.753 m (5' 9") Body mass index is 28.81 kg/m. Exam: General: Patient is alert, pleasant, cooperative, and in no acute distress. Eyes: Sclerae anicteric. Ears: External ears normal. Nose: External nose normal. Oral exam: No oral lesions noted. Neck: Trachea midline. No thyromegaly. No elevation of jugular venous pressure. No sanchez tid bruits. Lungs: Clear to auscultation bilaterally. No wheezes, rales, or rhonchi. Heart: Regular rate and rhythm. Normal S1/S2. No murmurs, gallops, rubs. Abdomen: Bowel sounds present. Soft, nondistended. No masses or hepatosplenomegaly noted . No significant tenderness noted. Extremities: No clubbing or cyanosis noted. No lower extremity edema noted. Pulses: Intact bilateral radial and pedal pulses. Musculoskeletal: No obvious arthritic change noted of the knees. Skin: Warm and dry. Psychiatric: Patient is alert and oriented to person, place, and day. Mood and affect nor mal. Neurological: Patient is intact to light touch in the upper and lower extremities bilateral ly. Left pocket: Incision is well-healed with no erythema, induration, discharge, or pre-erosio n Review of studies: ECG: Atrial sensed ventricular paced at 64 bpm with evidence of biventricular pacing, no si gnificant change from March 2019 Device Interrogation: His Medtronic biventricular pacemaker/ICD was interrogated and found to have stable sensing, pacing, and impedance values. The coronary sinus configuration was changed to LV 3 to LV 2 due to more lateral segment positioning on chest x-ray and improved capture threshold. No mode switch or ventricular episodes were noted since last interrogati on. Underlying rhythm is complete heart block with a ventricular escape rhythm in the 30s. He paces less than 1% in the atrium with greater than 98% ventricular pacing. Impression/Plan: Bob was seen today for follow-up. Diagnoses and all orders for this visit: Ischemic cardiomyopathy - ECG 12 lead Status post internal cardiac defibrillator procedure Atrial flutter, unspecified type (HCC) Thrombus of left atrial appendage Ventricular tachycardia (HCC) - Comprehensive Metabolic Panel; Future - TSH, Reflex Free T4; Future - amiodarone (PACERONE) 200 mg tablet; Take 1 tablet by mouth Daily. Sleep apnea, unspecified type 1) Ischemic cardiomyopathy - Mr. Will has a history of coronary artery disease with mu ltiple percutaneous interventions in the past more recently due to in-stent restenosis of th e left main stent. His last cardiac catheterization was in 2017 and PTCA to the circumflex was performed at that time. An echocardiogram performed earlier this year demonstrated an e jection fraction of 25 to 30% with anterior and inferior wall motion abnormalities. He cont inues to follow with cardiology. 2) S/p biventricular pacemaker/ICD - He had a biventricular pacemaker/ICD implanted in 2017 in [place] by his account. His device was interrogated today and found to be fun ctioning normally in all respects. Optimizations were made to the coronary sinus configurat ion as noted above. 3) Atrial flutter - An episode of atrial flutter was possibly noted in 2017 as per availabl e records. An atypical atrial flutter was suggested. He was not placed on anticoagulation given history of GI bleeds in the past as per records. There have been no recent mode switc h episodes and we will continue to trend for any atrial dysrhythmias through his device. He has been on a rather high dose of amiodarone more recently as discussed below. 4) JAVON thrombus - A history of left atrial appendage thrombus was noted in 2017 around the time of his cardiogenic shock and while on ECMO as per records. Given no significant atrial dysrhythmias thrombus may have been related to his cardiogenic shock and extracorporeal cir culation at the time. He is not currently on anticoagulation given a history of GI bleeding as per records. No significant mode switch episodes have been noted on recent interrogatio ns as per records. 5) Ventricular tachycardia - He underwent electrophysiology study in October 2017 and an i nducible ventricular tachycardia was noted. A biventricular pacemaker/ICD was then implante d. He has been on amiodarone 400 mg daily for several years by his account and he is not ce rtain as to why the medication was started. He denies any previous ICD shocks. I recommend ed decreasing amiodarone to 200 mg daily. If no significant dysrhythmias are noted on subse quent follow-up we can consider a trial off of the antiarrhythmic medication. We can consid er up titrating his beta-clotilde dose in the future. Blood work was ordered as above. 6) Sleep apnea - He has multiple risk factors for obstructive sleep apnea. It is not clear as to whether he has had a sleep study in the past. This encounter was dictated with voice recognition software and may contain inadvertent rec ognition errors. documented in this encounter Plan of Treatment [...] [place] | | | | | | [address] | | | | | | | | +--------+ + + + + | 04/16/ | Office | Cardiology | Alin Ayoub | | | 2019 | Visit | | MD Cheryl Arreguin | | | | | | [address] | | | | | | [place] [address] | | | | | | [phone] | | | | | | | [...] [place] | | | | | | [address] | | | | | | | | +--------+ + + + + + +------+--------+ + + | Name | Type | Priori | Associated Diagnoses | Order Schedule | | | | ty | | | + +------+--------+ + + | Comprehensive | Lab | Routin | Ventricular | 1 Occurrences | | Metabolic Panel | | e | tachycardia (HCC) | starting 07/25/2019 | | | | | | until 07/25/2020 | + +------+--------+ + + | TSH, Reflex Free T4 | Lab | Routin | Ventricular | 1 Occurrences | | | | e | tachycardia (HCC) | starting 07/25/2019 | | | | | | until 07/25/2020 | + +------+--------+ + + documented as of this encounter Procedures + +--------+ + + + | Procedure Name | Priori | Date/Time | Associated Diagnosis | Comments | | | ty | | | | + +--------+ + + + | ECG 12 LEAD | Routin | 07/25/2019 | Ischemic | Results for this | | | e | 2:34 PM | cardiomyopathy | procedure are in the | | | | PST | | results section. | + +--------+ + + + documented in this encounter Results ECG 12 lead (07/25/2019 2:34 PM PST) + + + + + + | Component | Value | Ref Range | Performed | Pathologist | | | | | At | Signature | + + + + + + | VENTRICULAR | 64 | BPM | [facility] | | | RATE EKG | | | | | + + + + + + | ATRIAL RATE | 64 | BPM | [facility] | | + + + + + + | P-R | 140 | ms | [facility] | | | INTERVAL | | | | | + + + + + + | QRS | 180 | ms | [facility] | | | DURATION | | | | | + + + + + + | Q-T | 582 | ms | [facility] | | | INTERVAL | | | | | + + + + + + | Q-T | 600 | ms | [facility] | | | INTERVAL | | | | | | (CORRECTED) | | | | | + + + + + + | P WAVE AXIS | 39 | degrees | [facility] | | + + + + + + | QRS AXIS | -111 | degrees | [facility] | | + + + + + + | T AXIS | 74 | degrees | [facility] | | + + + + + + | INTERPRETAT | Please refer to | | [facility] | | | ION TEXT | Providers office visit | | | | | | note for Providers | | | | | | Interpretation.Confirmed | | | | | | by [facility] [place] Read Only, | | | | | | [facility] Ayanna ([id number]), | | | | | | news videotape editor Lars Kennedy | | | | | | ([id number]) on 07/25/2019 | | | | | | 2:54:44 PM | | | | + + [...] | | disease | + + | Status post internal cardiac defibrillator procedure Automatic implantable cardiac | | defibrillator in situ | + + | Atrial flutter, unspecified type (HCC) | + + | Thrombus of left atrial appendage Other ill-defined heart disease | + + | Ventricular tachycardia (HCC) Paroxysmal ventricular tachycardia | + + | Sleep apnea, unspecified type | + + documented in this encounter
--- OUTSIDE RECORDS SUMMARY | ~2020-03-04 | XMS | Encounter Summary ---
Demographics + + + | Address | [address] | | | [place] [address] | + + + | Home Phone [...] [place] | | | | | [address] | | + + + + + Care Team Providers + +------+ + | Care Director Of Corporate Sponsorships Name | Role | Phone | + [...] Description | +--------+---------+ + + + | 10/04/ | Office | [facility] | Amy Olivares V, | Chronic systolic CHF | | 2020 | Visit | [facility] | MD [address] | (congestive heart | | | | REHABILITATION [address] | [address] [place], [place] | failure) ([facility]) | | | | [address] | [address] | (Primary Dx) | | | | [place] [address] | | | | | | [phone] | | | +--------+---------+ + + + [...] of this encounter Progress Notes Kathy Garcia, BARRON - 10/04/2019 9:00 AM PSTPatient tolerated exercise session without a ny complaints. Progression based on pt flow sheet. Continue support and progression. Appointment duration: 60 mins 11 :23 AM PSTdocumented in this encounter Plan of Treatment +--------+ + + + + | Date | Type | Specialty | Care Team | Description | +--------+ + + + + | 03/12/ | Office | Nephrology | Litzy, | | | 2019 | Visit | | ADARSH [address] | | | | | | [address] [facility] | | | | | | [address] [place] | | | | | | [id number] | | | | | | | | +--------+ + + + + | 04/16/ | Office | Cardiology | Alin Anderson | | | 2019 | Visit | | MD [address] | | | | | | [address] | | | | | | [place] [address] | | | | | | [phone] | | | | | | | [...] [place] | | | | | | [address] | | | | | | | | +--------+ + + + + documented as of this encounter Visit Diagnoses + + | Diagnosis | + + | Chronic systolic CHF (congestive heart failure) (HCC) - Primary | + + documented in this encounter"
--- OUTSIDE RECORDS SUMMARY | ~2020-03-04 | XMS | Encounter Summary ---
Demographics + + + | Address | [address] | | | [place] [address] | + + + | Home Phone [...] [place] | | | | | [address] | | + + + + + Care Team Providers + +------+ + | Care Rope Cutter Name | Role | Phone | [...] Description | +--------+---------+ + + + | 09/15/ | Office | [facility] | Amy Olivares V, | Chronic systolic CHF | | 2020 | Visit | [facility] | MD [address] | (congestive heart | | | | REHABILITATION [address] | [address] [place], [place] | failure) (HCC) | | | | [address] | [address] | (Primary Dx) | | | | [place] [address] | | | | | | [phone] | | | +--------+---------+ + + + [...] this encounter Progress Notes Gael Woo - 09/15/2019 9:00 AM PSTPatient tolerated exercise session without [...] [place] | | | | | | [address] | | | | | | | | +--------+ + + + + | 04/16/ | Office | Cardiology | Alin Anderson | | | 2019 | Visit | | MD [address] | | | | | | [address] | | | | | | [place] [address] | | | | | | [phone] | | | | | | | [...] [place] | | | | | | [address] | | | | | | | | +--------+ + + + + documented as of this encounter Visit Diagnoses + + | Diagnosis | + + | Chronic systolic CHF (congestive heart failure) (HCC) - Primary | + + documented in this encounter"
--- OUTSIDE RECORDS SUMMARY | ~2020-03-04 | XMS | Encounter Summary ---
Demographics + + + | Address | [address] | | | [place] [address] | + + + | Home Phone [...] [place] | | | | | [address] | | + + + + + Care Team Providers + +------+ + | Care Supervisor Functional Testing Name | Role | Phone | + +------+ + PCP | Unavailable | + +------+ + Reason for Visit + + + | Reason | Comments | + + + | New Patient | sinus-congestion and nasal drip | + + + Evaluate & Treat [...] Services | | Sinus | Jenny, | MD Daquan [address] | | | Required | | problem | ADARSH Santo | [address] | | | | | | [address] | [address] | | | | | | [place] | [place], | | | | | | [place], | [place] [address] | | | | | | [place] | Phone: | | | | | | [address] | [phone] | | | | | | Phone: | Fax: | | | | | | [phone] | [phone] | | | | | | Fax: | | | | | | | [phone] | | +--------+ + + + + + Encounter Details +--------+---------+ + + + | Date | Type | Department | Care Team | Description | +--------+---------+ + + + | 08/12/ | Office | [facility] | Edgar Augustin MD | Rhinorrhea (Primary | | 2018 | Visit | OTOLARYNGOLOGY [address] | [address] | Dx) | | | | [address] | [address] | | | | | [place] | [place] [address] | | | | | [address] | [phone] | | | | | [phone] | | | +--------+---------+ + + + [...] + + + + | Pulse | 66 | 08/12/2018 8:59 AM | | | | | PST | | + + + + + | Temperature | - | - | | + + + + + | Respiratory Rate | 14 | 08/12/2018 8:59 AM | | | | | PST | | + + + + + | Oxygen Saturation | 96% | 08/12/2018 8:59 AM | | | | | PST | | + + + + + | Inhaled Oxygen | - | - | | | Concentration | | | | + + + + + | Weight | 99.8 kg (220 lb) | 08/12/2018 8:59 AM | | | | | PST | | + + + + + | Height | 177.8 cm (5' 10") | 08/12/2018 8:59 AM | | | | | PST | | + + + + + | Body Mass Index | 31.57 | 08/12/2018 8:59 AM | | | | | PST | | + + + + + documented in this encounter Progress Notes Edgar Augustin MD - 08/12/2018 9:00 AM PSTPatient comes in for evaluation because of runny drippy nose. It's been very bad for the last 2 months. He keeps Kleenex all over the hous e because it can run and drip at any time. It runs from both sides the nose and that he fee ls like there is some that drains down the back of his throat. There is no pain or discomfo rt and no purulent drainage. He's had a previous sinus surgery along with a septoplasty marc k when he was in his 20s and since then has had no further problems with sinus infections. He still has some difficulty breathing through his nose and particularly on the left-hand si de. He does snore fairly loudly at night. He had a sleep study that was equivocal. Examination: Patient is an alert 62-year-old male communicates well in his voice quality is good. Skin of the face nose and ears all appeared to be smooth and healthy. Ear canals ar e open and clean and drums are clear. Nasal passages show nasal septal deformity towards th e left-hand side but good space to breathe on the right. No polyps mass or lesions were not ed. No mucopurulent drainage noted. In the oral cavity no mass or lesions are noted. He d oes have a fairly large tongue. No mass seen in the oropharynx and posterior pharyngeal wal l is smooth. Tongue and soft palate are smooth the moves symmetrically. Neck there is no m ass or lymphadenopathy noted. Thyroid area smooth and trachea was midline. Good range of m otion the neck without any pain or discomfort noted. Impression: Vasomotor rhinorrhea. Plan: Patient is given a prescription of Atrovent 0.06%. He'll use 2 sprays to his nose 1- 4 times a day as needed to try to bring the runny nose under control. If in spite of using the medication he persists with the increasing problems then he would need a CT scan through his sinuses. documented in this encounter Plan of Treatment [...] | | | | [address] [place] | | | | | | [address] | | | | | | | | +--------+ + + + + | 04/16/ | Office | Cardiology | Alin Anderson | | | 2019 | Visit | | MD [address] | | | | | | [address] | | | | | | [place] [address] | | | | | | [phone] | | | | | | | [...] [place] | | | | | | [address] | | | | | | | | +--------+ + + + + + + +--------+ + + | Name | Type | Priori | Associated Diagnoses | Order Schedule | | | | ty | | | + + +--------+ + + | * [facility] | Outpatient | Routin | Sinus problem | Ordered: 07/27/2018 | | Otolaryngology - AMB | Referral | e | | | | Referral | | | | | + + +--------+ + + documented as of this encounter Visit Diagnoses + + | Diagnosis | + + | Rhinorrhea - Primary Other diseases of nasal cavity and sinuses | + + documented in this encounter
--- OUTSIDE RECORDS SUMMARY | ~2020-03-04 | XMS | Encounter Summary ---
Demographics + + + | Address | [address] | | | [place] [address] | + + + | Home Phone [...] [place] | | | | | [address] | | + + + + + Care Team Providers + +------+ + | Care Aircraft Designer Name | Role | Phone | [...] | | | heart | [place], | [place] | | | | | failure | [place] [address] | [place] | | | | | (HCC) | Phone: | [address] | | | | | I50.22 | [phone] | Phone: | | | | | Procedures | Fax: | [phone] | | | | | Cardiac | [phone] | Fax: | | | | | Rehab | | [phone] | +--------+--------+ + + + + Encounter Details +--------+---------+ + + + | Date | Type | Department | Care Team | Description | +--------+---------+ + + + | 06/28/ | Office | [facility] | Amy Olivares V, | Chronic systolic CHF | | 2019 | Visit | [facility] | MD [address] | (congestive heart | | | | REHABILITATION [address] | Way [place], [place] | failure) ([facility]) | | | | [address] | [address] | | | | | [place] [address] | | | | | | [phone] | | | +--------+---------+ + + + [...] of this encounter Progress Gael Ortega - 06/28/2019 12:00 PM PDT [facility] [address] [place] [address] Cardiac Rehab Date: 06/28/2019 Patient Information Patient Name: Bob Will Date of : 1955 Age: 63 y.o. Encounter Diagnoses Code Name Primary? I50.22 Chronic systolic CHF (congestive heart failure) ([facility]) Number of Visits Approved: 34 kx Taken Medications Today? Yes Any Changes in Medications? No Any Problems to Report? No No complaints with exertion. Patient drives from a distance so informs us that next week wi ll be his last week. Ventricular paced rhythm without ectopy. Pre O2: 96%, SBP prior to exercise 94/56; during e xercise 96/52. Compliant with medications and therapeutic lifestyle changes. Continue monitored exercise. Any abnormal vital signs or rhythm strips will be reported in progress note. Electronically signed by: Gael Woo, 06/28/2019 14:37 Patient Name: Bob Will/: 1955/ ly signed by Gael Woo at 06/28/2019 2:57 PM PDTdocumented in this encounter Plan of [...] | | | | | [place] [address] | | | | | | [phone] | | | | | | | [...] [place] | | | | | | [address] | | | | | | | | +--------+ + + + + documented as of this encounter Visit Diagnoses + + | Diagnosis | + + | Chronic systolic CHF (congestive heart failure) (HCC) | + + documented in this encounter"
--- OUTSIDE RECORDS SUMMARY | ~2020-03-04 | XMS | Encounter Summary ---
Demographics + + + | Address | [address] | | | [place] [address] | + + + | Home Phone [...] [place], [place] | | | | | [address] | | + + + + + Care Team Providers + +------+ + | Care Control Cabinet Assembler Name | Role | Phone | [...] | | involving | [address] | [place] | | | | | [place] | [place] | [place] | | | | | coronary | [address] | [address] | | | | | artery of | Phone: | Phone: | | | | | [place] heart | [phone] | [phone] | | | | | without | Fax: | Fax: | | | | | angina | [phone] | [phone] | | | | | pectoris | | | +--------+ + + + + + Encounter Details +--------+---------+ + + + | Date | Type | Department | Care Team | Description | +--------+---------+ + + + | 09/09/ | Office | [facility] | Randy Figueroa, | Coronary artery | | 2019 | Visit | MED CTR CARDIAC | MD [address] | disease involving | | | | REHABILITATION [address] | [place], | [place] coronary | | | | [address] [place] | [place] [address] | artery of [place] | | | | [place] [address] | [phone] | heart without angina | | | | [phone] | | pectoris (Primary | | | [...] this encounter Progress Cheri Mchugh RRT - 09/09/2018 10:00 AM PST [facility] [address] [place] [address] Cardiac Rehab Date: 09/09/2018 Patient Information Patient Name: Bob Will Date of : 1955 Age: 62 y.o. Encounter Diagnoses Code Name Primary? I25.10 Coronary artery disease involving [place] coronary artery of [place] heart without angina pectoris Yes Number of [...] note. Electronically signed by: Cheri Harvey RRT, 09/09/2018 11:20 Patient Name: Bob Will/: 1955/ ly signed by Cheri Harvey RRT at 09/09/2018 11:20 AM PSTdocumented in this en counter Plan [...] [place] | | | | | | [address] | | | | | | | | +--------+ + + + + | 04/16/ | Office | Cardiology | Alin Anderson | | | 2019 | Visit | | MD [address] | | | | | | [address] | | | | | | [place] [address] | | | | | | [phone] | | | | | | | [...] [place] | | | | | | [address] | | | | | | | | +--------+ + + + + documented as of this encounter Visit Diagnoses + + | Diagnosis | + + | Coronary artery disease involving [place] coronary artery of [place] heart without | | angina pectoris - Primary | + + documented in this encounter"
--- OUTSIDE RECORDS SUMMARY | ~2020-03-04 | XMS | Encounter Summary ---
Demographics + + + | Address | [address] | | | [place] [address] | + + + | Home Phone [...] [place] | | | | | [address] | | + + + + + Care Team Providers + +------+ + | Care Multisensor Intelligence Officer Name | Role | Phone | + +------+ + | hCato Matson MD | PCP | | + [...] | | | | | disease | [address] | [address] | | | | | involving | [place], | [place] | | | | | [place] | [place] [address] | [place], [place] | | | | | coronary | Phone: | [address] | | | | | artery of | [phone] | Phone: | | | | | [place] heart | Fax: | [phone] | | | | | without | [phone] | Fax: | | | | | angina | | [phone] | | | | | pectoris | [...] | | | | | | [place] | | | | | | [...] | | CARDIOLOGY [address] | [address] [facility] | disease involving | | | | [place], | [place], | [place] coronary | | | | [place] [address] | [place] [address] | artery of [place] | | | | [phone] | heart without angina | | | [...] [place] | | | | | | [address] | | | | | | | | +--------+ + + + + | 04/16/ | Office | Cardiology | Alni Anderson | | | 2019 | Visit | | MD [address] | | | | | | [address] | | | | | | [place] [address] | | | | | | [phone] | | | | | | | | +--------+ + + + + | 04/16/ | Procedure | Cardiology | | | | 2019 | visit | | | | +--------+ + + + + | 04/25/ | Office | Cardiology | Rocio Pearl, | | | 2019 | Visit | | [address] | | | | | | [address] [place], [place] | | | | | | [address] | | | | | | | [...] starting 07/27/2018 | | | | | [place] coronary | until 07/27/2019 | | | | | artery of [place] | | | | | | heart [...] + + | Coronary artery disease involving [place] coronary artery of [place] heart without | | angina pectoris - Primary | + + | Acute on chronic systolic congestive heart failure ([facility]) Acute on chronic systolic | | heart failure | + + documented in this encounter"
--- OUTSIDE RECORDS SUMMARY | ~2020-03-04 | XMS | Encounter Summary ---
Demographics + + + | Address | [address] | | | [place] [address] | + + + | Home Phone [...] [place], [place] | | | | | [address] | | + + + + + Care Team Providers + +------+ + | Care 911 Telecommunicator Name | Role | Phone | + [...] RN | | | | | [address] [place], | | | | | | [place] [address] | | | | | | [phone] | | | +--------+ + + + [...] [place] | | | | | | [address] | | | | | | | | +--------+ + + + + | 04/16/ | Office | Cardiology | Alin Anderson | | | 2019 | Visit | | MD [address] | | | | | | [address] | | | | | | [place] [address] | | | | | | [phone] | | | | | | | [...] [place] | | | | | | [address] | | | | | | | | +--------+ + + + + documented as of this encounter Visit Diagnoses Not on filedocumented in this encounter"
--- OUTSIDE RECORDS SUMMARY | ~2020-03-04 | XMS | Encounter Summary ---
Demographics + + + | Address | [address] | | | [place] [address] | + + + | Home Phone | | + + + | Preferred Language | Unknown | + + + | Marital Status | | + + + | Amish Affiliation | NRP | + + + | Race | White | + + + | Ethnic Group | Not or | + + + Author + + + | Author | [facility] | + + + | Organization | [facility] | + + + | Address | Unknown | + + + | Phone | Unavailable | + + + Support + + + + + | Name | Relationship | Address | Phone | + + + + + | [place] Will | ECON | [address] | | | | | [place] [address] | | + + + + + Care Team Providers + +------+ + | Care Web Press Operator Apprentice Name | Role | Phone | [...] Pharmacy | | | | | | [address] | | | | | | [place], [place] | | | | | | [address] | | | | | | [phone] | | | +--------+ + + + [...]
--- OUTSIDE RECORDS SUMMARY | ~2020-03-04 | XMS | Encounter Summary ---
Demographics + + + | Address | [address] | | | [place] [address] | + + + | Home Phone [...] [place] | | | | | [address] | | + + + + + Care Team Providers + +------+ + | Care Transfer Iron Operator Name | Role | Phone | [...] | Required | | problem | Hansa, SALES TEACHER | [address] | | | | | | [address] | [address] | | | | | | [place] | [place], | | | | | | [place], | [place] [address] | | | | | | [place] | Phone: | | | | | | [address] | [phone] | | | | | | Phone: | Fax: | | | | | | [phone] | [phone] | | | | | | Fax: | | | | | | | [phone] | | +--------+ + + + + [...] + + | 07/27/ | Telephone | [facility] | Jenny, | Other (referral) | | 2017 | | CARDIOLOGY [address] | Hansa SALES TEACHER [address] | | | | | [place], | [place], | | | | | [place] [address] | [place] [address] | | | | | [phone] | [phone] | | | | | | | [...] | | | | [address] [place] | | | | | | [address] | | | | | | | | +--------+ + + + + | 04/16/ | Office | Cardiology | Alin Anderson | | | 2019 | Visit | | MD [address] | | | | | | [address] | | | | | | [place] [address] | | | | | | [phone] | | | | | | | [...] [place] | | | | | | [address] | | | | | | | [...]
--- OUTSIDE RECORDS SUMMARY | ~2020-03-04 | XMS | Encounter Summary ---
Demographics + + + | Address | [address] | | | [place] [address] | + + + | Home Phone | | + + + | Preferred Language | Unknown | + + + | Marital Status | | + + + | Protestant Affiliation | Unknown | + + + | Race | Unknown | + + + | Ethnic Group | Unknown | + + + Author + + + | Author | [facility] | | | and [place] | + + + | Organization | [facility] | | | and [place] | + + + | Address | Unknown | + + + | Phone | Unavailable | + + + Support + + + + + | Name | Relationship | Address | Phone | + + + + + | Venice Will | ECON | [place] | | | | | [address] | | + + + + + Care Team Providers + +------+ + | Care Parts Consultant Name | Role | Phone | [...] | | Atherosclero | MD Lauro | [address] [place] [address] | | | | | tic heart | [address] | [address] | | | | | disease of | [address] | [place], | | | | | [place] | [place] | [place] [address] | | | | | coronary | [place] | Phone: | | | | | artery | [address] | [phone] | | | | | without | Phone: | Fax: | | | | | angina | [phone] | [phone] | | | | | pectoris ST | Fax: | | | | | | elevation | [phone] | | | | | | (STEMI) [...] | Office | [facility] | Jenny, | PAD (peripheral | | 2019 | Visit | CARDIOLOGY [address] | Hansa AIRCRAFT AVIONICS TECHNICIAN [address] | artery disease) | | | | [place], | [place], | ([facility]) (Primary Dx); | | | | [place] [address] | [place] [address] | Benign essential | | | | [phone] | [phone] | hypertension; | | | | | | Fatigue, unspecified | | | | | | type; Acute | | | | | | anterior wall [place] | | | | | | (HCC); Coronary | | | | | | artery disease | | | | | | involving [place] | | | | | | coronary artery of | | | | | | [place] heart without | | | | | [...] | Blood Pressure | 104/72 | 09/21/2018 9:54 AM | | | | | PST | | + + + + + | Pulse | 58 | 09/21/2018 9:54 AM | | | | | PST | | + + + + + | Temperature | - | - | | + + + + + | Respiratory Rate | 18 | 09/21/2018 9:54 AM | | | | | PST | | + + + + + | Oxygen Saturation | - | - | | + + + + + | Inhaled Oxygen | - | - | | | Concentration | | | | + + + + + | Weight | 100.3 kg (221 lb 1.9 | 09/21/2018 9:54 AM | | | | oz) | PST | | + + + + + | Height | 175.3 cm (5' 9") | 09/21/2018 9:54 AM | | | | | PST | | + + + + + | Body Mass Index | 32.65 | 09/21/2018 9:54 AM | | | | | PST | | + + + + + documented in this encounter Progress Hansa Hargrove ARNP - 09/21/2018 10:00 AM PSTFormatting of this note might be differen t from the original. PATIENT NAME: Bob Sims Suman : 1955: AGE: 62 y.o. PRIMARY CARE: Young Haque, DO OUTPATIENT FOLLOW UP VISIT Date of Service: 09/21/2018 HISTORY OF PRESENT ILLNESS: Bob Will is a 62 y.o. male with a history of coronary artery disease post recen t anterior wall [place], post PTCA and stents of the left main, LAD and LCx on 03/15/17, cardiac sh ock, left atrial appendage thrombus, recent status post stents to, CUSTODIAN SUPERVISOR-D placement in [facility] o n 10/17/2017.Heis being seen today [...] retention since the heart failure team in [place] told him to continue taking his furosemide on a daily basis. He will do a blood pressure log and bring it to his next appoin [facility]. Since that time, he was seen in [...] least 30 minutes every day at the [facility] with h is walker. He feels better [...] Active Problem List Diagnosis Acute anterior wall [place] Coronary artery disease involving [place] coronary artery of [place] heart without angina pectoris Ischemic cardiomyopathy CUSTODIAN SUPERVISOR-D (AICD) Medtronic 10/16/17 [facility] Stecker Implantable defibrillator reprogramming/check H/O atrial [...] spray QNASL 80 mcg/actuation nasal aerosol spray Marcus 2 sprays every day by intranasal route at bedtime. Cholecalciferol (VITAMIN D-3) 67719 units CAPS Take by mouth Once a [...] 42 mcg (0.06 %) nasal spra y Marcus 2 sprays 3 times a day by [...] 6 BPM Confirmed by FLORY العلي MD ([id number]) on 08/27/2018 6:38:04 AM LAB RESULTS reviewed during visit today primarily from [facility]: LIPID Lab Results Component Value Date CHOL [...] 366 (H) 06/10/2018 I reviewed records from [facility] for emergency department visit o n 08/26/2018 which is summarized in the HPI. RESULTS- I reviewed reports from [facility]: Ct Head Wo Contrast Result Date: 08/26/2018 [...] shock requiring IABP, pressor (dop amine, norepinephrine). [facility] and [facility] were on divert. Patient wasn' t transferred to [facility]. B. Echocardiogram 03/17/2017 shows LV ejection fraction is severely de creased, visually estimated left ventricular ejection fraction is 20 - 25%, left ventricular systolic thickening is segment allyabnormal,mildly reduced RV systolic function. Normal RV size, no significant valvular abnormalities seen, compared to the most recent exam dated , 03/15/2017, there is no significant changes C. At [facility], patient had another STEMI code 03/29, [...] to follow up closely with a local reserves clerk in [place] . He wias dischargeed with a LifeVest [...] y we will transfer the patient to [facility] for consideration of urgent coronary revascularizatio [...] He is in class II of the [place] [employer] functional class. 2. Ischemic Cardiomyopathy: [...] in the se regions. C. S/P Medtronic CUSTODIAN SUPERVISOR-D 10-16-17 Dr Darby [facility]. Ice interrogation today shows one episode [...] will be needing to go back to [place] in the summer. F.Today, 09/21/2018, he has had no increase in fluid retention. There is no leg swelling. He is in class II of the [place] [employer] functional class. Heart failur e stage C. 3. Ventricular tachycardia: A. Electrophysiology Study 10/16/17 shows positive EP study for induc ible ventricular tachycardia. B.In remote interrogation he had 65 episodes of treated VT. He is n ot on any antiarrhythmic. He is going to be seen in [place] so we will let EP know about [...] vision was hospitalized a week ago. Viry s was after his WI and at the same time patient was having ventricular tachycardia. He was initiated on amiodarone and then discontinued before discharge. The plan is to monitor thro ugh his device and see if this is a problem that needs to be addressed. Patient is not on anticoagulation he was left that way from [facility]. Patient has had several GI bleeds [...] start titrating metoprolol increases as recommended by [facility] heart failure team and continue close monitoring of blood pressure. 4. He will follow up in 3 months for office visit and device interrogation, or sooner with concerns. He will have fasting labs prior to visit for lipid profile, CMP and CBC, if not done prior by another provider. Portions of this chart may have been created with [employer] voice recognition software. Occasi onal wrong-word or [...] | | | | [address] [place] | | | | | | [address] [place] | | | | | | [address] | | | | | | | | +--------+ + + + + | 04/16/ | Office | Cardiology | Alin Anderson | | | 2019 | Visit | | MD Cheryl Arreguin | | | | | | [address] | | | | | | [place] [address] | | | | | | [phone] | | | | | | | [...] [place] | | | | | | [address] | | | | | | | | +--------+ + + + + documented as of this encounter Visit Diagnoses + + | Diagnosis | + + | PAD (peripheral artery disease) (HCC) - Primary Unspecified disorders of arteries and | | arterioles | + + | Benign essential hypertension Essential hypertension, benign | + + | Fatigue, unspecified type | + + | Acute anterior wall WI (HCC) Acute myocardial infarction of other anterior wall, | | episode of care unspecified | + + | Coronary artery disease involving [place] coronary artery of [place] heart without | | angina pectoris | + + | Ischemic cardiomyopathy Other specified forms of chronic ischemic heart disease | + + | Abdominal aortic aneurysm (AAA) without rupture (HCC) | + + | Mixed hyperlipidemia | + + documented in this encounter
--- OUTSIDE RECORDS SUMMARY | ~2020-03-04 | XMS | Encounter Summary ---
Demographics + + + | Address | [address] | | | [place] [address] | + + + | Home Phone [...] [place] | | | | | [address] | | + + + + + Care Team Providers + +------+ + | Care Mixing Machine Operator Name | Role | Phone | + +------+ + | Chato Matson MD | PCP | | + +------+ + Encounter Details +--------+ + + + + | Date | Type | Department | Care Team | Description | +--------+ + + + + | 07/15/ | Orders Only | [facility] | Lilian Machado, | | | 2017 | | CARDIOLOGY [address] | RN | | | | | [place], | | | | | | [place] [address] | | | | | | [phone] | | | +--------+ + + + [...] + documented as of this encounter Progress Lilian Martin RN - 07/15/2018 11:47 AM PSTIncreased by provider in [place] to 1 tablet daily. documented in this encounter Plan of Treatment +--------+ + + + + | Date | Type | Specialty | Care Team | Description | +--------+ + + + + | 03/12/ | Office | Nephrology | Litzy, | | | 2019 | Visit | | ADARSH [address] | | | | | | [address] | | | | | | [address] [place] | | | | | | [address] | | | | | | | | +--------+ + + + + | 04/16/ | Office | Cardiology | Alin Anderson | | | 2019 | Visit | | MD Cheryl Arreguin | | | | | | [address] | | | | | | [place] [address] | | | | | | [phone] | | | | | | | [...] [place] | | | | | | [address] | | | | | | | | +--------+ + + + + documented as of this encounter Visit Diagnoses Not on filedocumented in this encounter"
--- OUTSIDE RECORDS SUMMARY | ~2020-03-04 | XMS | Encounter Summary ---
Demographics + + + | Address | [address] | | | [place] [address] | + + + | Home Phone [...] [place], [place] | | | | | [address] | | + + + + + Care Team Providers + +------+ + | Care School Nurse Name | Role | Phone | [...] | | | | | | [place] [address] | | | | | | [phone] | | | +--------+ + + + [...] [place] | | | | | | [address] | | | | | | | | +--------+ + + + + | 04/16/ | Office | Cardiology | Alin Anderson | | | 2019 | Visit | | MD Cheryl Arreguin | | | | | | [address] | | | | | | [place] [address] | | | | | | [phone] | | | | | | | [...] [place] | | | | | | [address] | | | | | | | | +--------+ + + + + documented as of this encounter Visit Diagnoses Not on filedocumented in this encounter"
--- OUTSIDE RECORDS SUMMARY | ~2020-03-04 | XMS | Encounter Summary ---
Demographics + + + | Address | [address] | | | [place] [address] | + + + | Home Phone [...] [place], [place] | | | | | [address] | | + + + + + Care Team Providers + +------+ + | Care Cloth Hand Name | Role | Phone | [...] | | | | | involving | [address] | [place] | | | | | [place] | [place] [address] | [place] | | | | | coronary | [address] | [address] | | | | | artery of | Phone: | Phone: | | | | | [place] heart | [phone] | [phone] | | | | | without | Fax: | Fax: | | | | | angina | [phone] | [phone] | | | | | pectoris | | | +--------+ + + + + + Encounter Details +--------+---------+ + + + | Date | Type | Department | Care Team | Description | +--------+---------+ + + + | 12/09/ | Office | [facility] | Randy Figueroa, | Coronary artery | | 2019 | Visit | MED [facility] CARDIAC | MD [address] | disease involving | | | | REHABILITATION [address] | [place], | [place] coronary | | | | [address] [place] | [place] [address] | artery of [place] | | | | [place] [address] | [phone] | heart without angina | | | | [phone] | | pectoris (Primary | | | [...] this encounter Progress Gael Ortega - 12/09/2018 10:00 AM PDT [facility] CARDIAC REHABILITATION [address] [place] [address] Cardiac Rehab Discharge Date: 12/09/2018 Patient Information Patient Name: Bob Will Date of : 1955 Age: 63 y.o. Referring Provider: Randy Figueroa MD Encounter Diagnoses Code Name Primary? 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 He has recently increased his metoprolol dose and is on Entresto. He arrives in electric Auto Mute heelchair and has been inactive. Fall Ri [...] control. Also began walking with his around [employer] 3 days a week along with chasing [...] Healthy Dietary Education Date: 08/03/18 -Referral to High School Biology Teacher: Date: -DVD: Healthy Eating For Life Date: [...] exercise until stable. Date: Range: -Referral to Control Manager Date: Education Points listed below- Date [...] Unforeseen circumstances makes the constant trip from [place] to not be a viable option a [...] signed by Randy Figueroa MD at 12/12/2018 7:15 PM PDTdocumented in this encounter Plan of [...] [place] | | | | | | [id number] | | | | | | | | +--------+ + + + + | 04/16/ | Office | Cardiology | Alin Anderson | | | 2019 | Visit | | MD [address] | | | | | | [address] | | | | | | [place] [address] | | | | | | [phone] | | | | | | | | +--------+ + + + + | 04/16/ | Procedure | Cardiology | | | | 2019 | visit | | | | +--------+ + + + + | 04/25/ | Office | Cardiology | Rocio Pearl, | | | 2019 | Visit | | MD Cheryl URENA | | | | | | [place], [place] | | | | | | [address] | | | | | | | | +--------+ + + + + documented as of this encounter Visit Diagnoses + + | Diagnosis | + + | Coronary artery disease involving [place] coronary artery of [place] heart without | | angina pectoris - Primary | + + | Post PTCA Postsurgical percutaneous transluminal coronary angioplasty status | + + documented in this encounter
--- OUTSIDE RECORDS SUMMARY | ~2020-03-04 | XMS | Encounter Summary ---
Demographics + + + | Address | [address] | | | [place] [address] | + + + | Home Phone [...] [place], [place] | | | | | [address] | | + + + + + Care Team Providers + +------+ + | Care Senior Environmental Technician Name | Role | Phone | [...] Ischemic | MD Lauren | [address] | | | | | cardiomyopat | [address] | [place], | | | | | hy | [address] | [place] | | | | | Procedures | [place], | [address] | | | | | ECHO | [place] [address] | Phone: | | | | | Complete [place] | Phone: | [phone] | | | | | ECHO HEART | [phone] | Fax: | | | | | [facility] | Fax: | [phone] | | | | | [address] | [phone] | | | | | | [place] | | | | | | | [...] | | | | | Atherosclero | [address] | [address] | | | | | tic heart | [address] | [address] | | | | | disease of | [address] | [place], | | | | | [place] | [address] | [place] [address] | | | | | coronary | [place] | Phone: | | | | | artery | [address] | [phone] | | | | | without | Phone: | Fax: | | | | | angina | [phone] | [phone] | | | | | pectoris ST [...] + + | 03/18/ | Office | [facility] | Lauren Figueroa, | Implantable | | 2018 | Visit | CARDIOLOGY [address] | [address] [facility] | defibrillator | | | | [address] [place], | [place], | reprogramming/check | | | | [place] [address] | [place] [address] | (Primary Dx); SHOW HOST OR HOSTESS-D | | | | [phone] | [phone] | (AICD) Medtronic | | | | [...] of lisinopril Where to go for labs: [facility] [address] [facility] Echo: Date: Check-In Time: Where to Check In: Follow up appointment: 3-4 weeks Provider: Date: Check-In Time: documented in this encounter Progress Notes Lauren Figuerao MD - 03/18/2018 8:00 AM PDTFormatting of this note might be different f rom the original. PATIENT NAME: Ron Will : 1955: AGE: 62 y.o. PRIMARY CARE: Chato Matson MD OUTPATIENT FOLLOW UP VISIT Date of Service: 03/18/2018 HISTORY OF PRESENT ILLNESS: Ron Will is a 62 y.o. male with a history of coronary artery disease post recent anterior wall [place], post PTCA and stents of the left main, LAD and LCx on 03/15/17, cardiac shoc k, left atrial appendage thrombus, recent status post stents to , SHOW HOST OR HOSTESS-D placement in [facility] on 10/17/2017. He is being seen today [...] Patient has been having problems sleeping at [facility], but relates it to the hot weather. Patient has no complaints of chest pain or chest dis comfort both at rest and on exertion. There is no palpitation, dizziness or lightheadedness. Patient has no complaints of ankle or leg swelling. [facility]. MEDICAL, SURGICAL, AND PERSONAL HISTORY Past Medical, Surgical, Family, and Social History are reviewed in EPIC. CURRENT PROBLEMS Patient Active Problem List Diagnosis Acute anterior wall [place] Coronary artery disease involving [place] coronary artery of [place] heart without angina pectoris Ischemic cardiomyopathy Pulmonary edema SHOW HOST OR HOSTESS-D (AICD) Medtronic 10/16/17 [facility] Stecker Implantable defibrillator reprogramming/check H/O atrial flutter Tachycardia GERD (gastroesophageal reflux disease) PAD (peripheral artery disease) CURRENT MEDICATIONS Current Outpatient Prescriptions Medication Sig Dispense Refill aspirin 81 MG tablet Take 81 mg by mouth Daily. atorvaSTATin (LIPITOR) 80 MG tablet Take 1 tablet by mouth nightly. 30 tablet 5 Cholecalciferol (VITAMIN D-3) 05137 units CAPS Take by mouth Once a [...] RESULTS reviewed during visit today primarily from [facility]: LIPID Lab Results Component Value [...] shock requiring IABP, pressor (dopa mine, norepinephrine). [facility] were on divert. Patient wasn't transferred to [facility], [facility]. B. Echocardiogram 03/17/2017 shows LV ejection fraction is severely de creased, visually estimated left ventricular ejection fraction is 20 - 25%, left ventricular systolic thickening is segmentally abnormal,mildly reduced RV systolic function. Normal R V size, no significant valvular abnormalities seen, compared to the most recent exam dated, 03/15/2017, there is no significant changes C. At [facility], patient had another STEMI code [...] to follow up closely with a local quarter doper in [place] . He wias dischargeed with a LifeVest [...] will tr ansfer the patient to [facility] for consideration of urgent coronary [...] He is in a class II of [place] [employer] functional class. There is no [...] myocardium in these regions. C. S/P Medtronic SHOW HOST OR HOSTESS-D 10-16-17 Dr Darby, [facility]. Ice interrogation today shows one [...] week ago. This was after h is [place] and at the same time patient was having ventricular tachycardia. He was initiated on amiodarone and then discontinued before discharge. The plan is to monitor through his device and see if this is a problem that needs to be addressed. Patient is not on anticoagulation he was left that way from [facility]. Patient has had several GI [...] 8:01 Electronically signed by: Lauren Figueroa MD [facility] 03/18/2018 Portions of this chart may have been created with [employer] voice recognition software. Occasi onal wrong-word or [...] defibrillator reprogramming/check Z45.02 V53.32 Device Interrogation 2. SHOW HOST OR HOSTESS-D (AICD) Medtronic 10/16/17 [facility] Stecker Z95.810 V45.02 Device Interrogation 3. Ischemic [...] | | | | [address] [place] | | | | | | [address] | | | | | | | | +--------+ + + + + | 04/16/ | Office | Cardiology | Alin Anderson | | | 2019 | Visit | | MD Cheryl Arreguin | | | | | | [address] | | | | | | [place] [address] | | | | | | [phone] | | | | | | | [...] [place] | | | | | | [address] | | | | | | | [...] results section. | | | | | SHOW HOST OR HOSTESS-D (AICD) | | | | | | [...] Demographics Patient Name MIKE | | | [facility] Room Number J Patient Number | | | [id number] Date of Study 04/02/2018 Visit | | | Number [id number] Referring | | | Physician CAROLINA AGUILAR Number Date of 1955 | | | Management Trainer FRANNIE ISAACS RDCS Age | | | 62 year(s) Interpreting CAROLINA AGUILAR | | | Managing Consultant Clinical Professor | | | [place], | | | Gender Male | | | Nurse | | | [employer] Procedure Type of Study TTE procedure: ECHO [...] 1 cm PW Diastolic: 0.9 cm EF Zrldegcmg96% EF | | | Calculated: 32% Miscellaneous [...] Diastolic: 0.9 cm | | | EF Xkmjdkuhg80% | | | EF Calculated: 32% | | | | | | Miscellaneous | | | | | | Aorta | | | | | | Aortic Root: 3.4 cm | | | | | + + --+ + + | Procedure Note | + + | Sebastian, Rad Results In - 04/05/2018 10:13 AM [facility] Transthoracic Echocardiography Report | | (TTE) Demographics Patient Name MIKE RON Room Number J Patient | | Number [id number] Date of Study 04/02/2018 Visit Number [id number] | | Referring Physician CRAOLINA AGUILAR Number Date of | | 1955 Management Trainer FRANNIE ISAACS RDCS Age 62 | | year(s) Interpreting CAROLINA AGUILAR | | Managing Consultant Clinical Professor LAUREN FIGUEROA, | | Gender Male Nurse [...] 1 cm PW Diastolic: 0.9 cm EF Yhcixewnk61% EF Calculated: 32% Miscellaneous | | Aorta [...] PW Diastolic: 0.9 cm | | EF Avldfrbmo23% | | EF Calculated: 32% | | [...] | reprogramming/check Z45.02 V53.32 Device Interrogation 2. SHOW HOST OR HOSTESS-D (AICD) | | | Medtronic 10/16/17 [facility] Stecker Z95.810 V45.02 Device Interrogation | | [...] + + | Performing | Address | City/State[facility] | Phone Number | | Organization | | | | + +---------+ + + | [facility] | | | | + +---------+ + + documented in this encounter Visit Diagnoses + + | Diagnosis | + + | Implantable defibrillator reprogramming/check - Primary Fitting and adjustment of | | automatic implantable cardiac defibrillator | + + | SHOW HOST OR HOSTESS-D (AICD) Medtronic 10/16/17 [facility] Darby | + + | Ischemic cardiomyopathy Other specified forms of chronic ischemic heart disease | + + | Tachycardia Tachycardia, unspecified | + + documented in this encounter
--- OUTSIDE RECORDS SUMMARY | ~2020-03-04 | XMS | Encounter Summary ---
Demographics + + + | Address | [address] | | | [place] [address] | + + + | Home Phone [...] [place] | | | | | [address] | | + + + + + Care Team Providers + +------+ + | Care Haulpak Driver Name | Role | Phone | [...] Description | +--------+---------+ + + + | 08/02/ | [facility] | [facility] | Amy Olivares V, | Chronic systolic CHF | | 2019 | Visit | [facility] | MD [address] | (congestive heart | | | | REHABILITATION [address] [place], [place] | failure) (HCC) | | | | [address] | [address] | (Primary Dx) | | | | [place] [address] | | | | | | [phone] | | | +--------+---------+ + + + [...] of this encounter Progress Notes Kathy Garcia, PRODUCT EXAMINER - 08/02/2019 12:00 PM PSTFormatting of this note might be different f rom the original. [facility]HABILITATION [address] [facility] [address] Cardiac Rehab 60 Day Review Date: 08/02/2019 Patient Information Patient Name: Bob Will Date of : 1955 Age: 63 y.o. Referring Provider: Amy Dai MD Encounter Diagnoses Code Name Primary? I50.22 Chronic systolic CHF (congestive heart failure) (HCC) Yes Cardiac Rehab Phase II Leon atment Plan Bob Wlil (Bob) is a 63 y.o. male with a history of coronary artery disease post rec ent anterior wall AK, post PTCA and stents of the left main, LAD and LCx on 03/15/17, cardiac shock, left atrial appendage thrombus, recent status post stents to, [facility]-D placement in [facility] on 10/17/2017. Patient's states that his [...] RPE: 3-4/10 60 Day exercise assessment: Date: 08/02/19 Mode: Biostep Duration: 50*2.57 METs RPE: 3-4/10 Discharge exercise assessment: Date: Mode: Duration: RPE: [...] with Heart Failure book Date received: 06/02/19 Ta rget Goal(s) Aerobic- moderate intensity activity [...] t: 198# BMI: 29 60 Day Weight: 196# Discharge Weight: Weight Goal: Waist Circumference: D/C [...] Healthy Dietary Education Date: 06/02/19 -Referral to Regulatory Specialist: Date: -DVD: Healthy Eating For Life [...] Exercise BP: 90/58 60 Day Resting BP: 112/62 60 Day Exercise BP: 118/58 Discharge BP: Discharge Exercise BP: Inte rventions [...] exercise until stable. Date: Range: -Referral to Databases Software Consultant Date: Education Points listed below- Date Completed: [...] No Initial PHQ-9: 4 30 Day PHQ-9: 4 60 Day PHQ-9: 4 Discharge PHQ-9: Support systems: and family Notes: [...] gain strength and conditioning. Electronically signed by: Kathy Garcia RRT, 08/02/2019 11:46 AM Patient Name: Bob Will/: 1955/ ly signed by Randy Figueroa MD at 08/07/2019 2:34 PM PSTdocumented in this encounter Plan of Treatment +--------+ + + + + | Date | Type | Specialty | Care Team | Description | +--------+ + + + + | 07/06/ | Office | Nephrology | Litzy, | | | 2019 | Visit | | ADARSH [address] | | | | | | [address] [facility] | | | | | | [address] [place] | | | | | | [address] | | | | | | | | +--------+ + + + + | 04/16/ | Office | Cardiology | Alin Anderson | | | 2019 | Visit | | MD Cheryl Arreg[address] | | | | | | [address] | | | | | | [place] [address] | | | | | | [phone] | | | | | | | [...] [place] | | | | | | [address] | | | | | | | | +--------+ + + + + documented as of this encounter Visit Diagnoses + + | Diagnosis | + + | Chronic systolic CHF (congestive heart failure) (HCC) - Primary | + + documented in this encounter
--- OUTSIDE RECORDS SUMMARY | ~2020-03-04 | XMS | Encounter Summary ---
Demographics + + + | Address | [address] | | | [place] [address] | + + + | Home Phone | | + + + | Preferred Language | Unknown | + + + | Marital Status | | + + + | Lutheran Affiliation | Unknown | + + + | Race | Unknown | + + + | Ethnic Group | Unknown | + + + Author + + + | Author | [facility] | | | and [place] | + + + | Organization | [facility] | | | and [place] | + + + | Address | Unknown | + + + | Phone | Unavailable | + + + Support + + + + + | Name | Relationship | Address | Phone | + + + + + | [place] | ECON | [place] | | | | | [address] | | + + + + + Care Team Providers + +------+ + | Care Metal Forger'S Assistant Name | Role | Phone | + +------+ + | Amy Olivares MD | PCP | | + +------+ + Reason for Visit + + + | Reason | Comments | + + + | Device Check | | | (In-office) | | + + + Follow Up (Routine) +--------+--------+ + + + + | Status | Reason | Specialty | Diagnoses / | Referred By | Referred To | | | | | Procedures | Contact | Contact | +--------+--------+ + + + + | Closed | | Cardiology | Diagnoses | Olivares, | [place], | | | | | Abdominal | Amy Dai MD | MD Randy | | | | | aortic | [address] | [address] | | | | | aneurysm, | [address] | [address] | | | | | without | [place], | [place], | | | | | rupture | [place] [address] | [place] [address] | | | | | (HCC) ST | Phone: | Phone: | | | | | elevation | [phone] | [phone] | | | | | (STEMI) | Fax: | Fax: | | | | | myocardial | [phone] | [phone] | | | | | infarction | [...] | | | | | | | [place] | | | | | | | [...] + + | 03/24/ | Procedure | [facility] | Randy Figueroa, | Implantable | | 2019 | visit | CARDIOLOGY [address] | [address] [facility] | defibrillator | | | | [place], | [place], | reprogramming/check | | | | [place] [address] | [place] [address] | (Primary Dx); CASING FLUID TENDER-D | | | | [phone] | [phone] | (AICD) Medtronic | | | | | | 10/16/17 EULOGIO Darby; | | | | | | Ischemic | | | | | | cardiomyopathy; | | | | | | Acute on chronic | | | | | | systolic [...] encounter Procedure Notes Randy Figueroa MD - 03/24/2019 1:00 PM PDTAssociated Order(s): DEVICE INTERROGATIONPro cedure(s): DEVICE INTERROGATIONPre-Procedure Diagnose(s): Implantable defibrillator reprogra mming/check; Biventricular ICD (implantable cardioverter-defibrillator) in place; Ischemic c ardiomyopathy; Acute on chronic systolic congestive heart failure (HCC) PATIENT NAME: Bob Will : 1955: AGE: [...] of downloading device data was supervised by Randy Figueroa MD Underlying rhythm: sinus rhythm 75 [...] and stable device function. Quarterly remote monitoring. documented in this encounter Plan of Treatment +--------+ + + + + | Date | Type | Specialty | Care Team | Description | +--------+ + + + + | 03/12/ | Office | Nephrology | Litzy, | | | 2019 | Visit | | ADARSH [address] | | | | | | [address] | | | | | | [address] [place] | | | | | | [address] | | | | | | | | +--------+ + + + + | 04/16/ | Office | Cardiology | Alin Anderson | | 2019 | Visit | | MD Cheryl Arreguin | | | | | | [address] | | | | | | [place] [address] | | | | | | [phone] | | | | | | | [...] [place] | | | | | | [address] | | | | | | | | +--------+ + + + + documented as of this encounter Procedures + +--------+ + + + | Procedure Name | Priori | Date/Time | Associated Diagnosis | Comments | | | ty | | | | + +--------+ + + + | DEVICE INTERROGATION | Routin | 03/24/2019 | Implantable | Results for this | | | e | 12:00 AM | defibrillator | procedure are in the | | | | PDT | reprogramming/check | results section. | | | | | CASING FLUID TENDER-D (AICD) | | | | | | Medtronic 10/16/17 | | | | | | EULOGIO Darby | | | | | | Ischemic | | | | | | cardiomyopathy | | | | | | Acute on chronic | | | | | | systolic congestive | | | | | | heart failure (HCC) | | + +--------+ + + + documented in this encounter Results Device Interrogation (03/24/2019 12:00 AM PDT) + + + | Narrative | Performed At | + + + | Randy | [facility] | | MD [place] 03/24/2019 14:11 PATIENT NAME: Bob Sims | | | Suman : 1955: AGE: 63 y.o.ICD Evaluation | | | Report March 24, 2019 Reason for evaluation: routineIndication for ICD: | | | Ischemic cardiomyopathy (I25.5, 414.8); Implantable defibrillator | | | reprogramming/check (Z45.02, V53.32); Acute on chronic systolic | | | congestive heart failure (HCC) (I50.23, 428.23, 428.0); Biventricular | | | ICD (implantable cardioverter-defibrillator) in place (Z95.810, | | | V45.02) Patient was seated and reclined and [...] | | collected by Kelly Rodriguez RN The technical aspect of downloading | | | device data was supervised by Randy Figueroa MD Underlying rhythm: | | | sinus rhythm 75 beats.3 mode switch episodes accounting for <0.1% of | | | the time. The longest occurred 03/04/19 at 12:33 AM for 10 minutes 11 | | | seconds. EGM is consistent with atrial flutter with variable | | | conduction with rate 70-87 beats.0 ventricular high rate episodes. No | | | tachycardia therapies recommended or delivered.PVC singles | | | <0.2/hour PVC runs <0.1/hourBiventricular | | | pacing 98.3%Histogram good. Battery longevity 8.4 years.Normal and | | | stable device function.Quarterly remote monitoring. | | |details. Data collected by Kelly Rodriguez RN | | | | | |The technical aspect of downloading device data was supervised by | | |Randy Figueroa MD | | | | | |Underlying rhythm: sinus rhythm 75 beats. | | |3 mode switch episodes accounting for <0.1% of the time. The | | |longest occurred 03/04/19 at 12:33 AM for 10 minutes 11 seconds. | | |EGM is consistent with atrial flutter with variable conduction | | |with rate 70-87 beats. | | |0 ventricular high rate episodes. No tachycardia therapies | | |recommended or delivered. | | |PVC singles <0.2/hour | | |PVC runs <0.1/hour | | |Biventricular pacing 98.3% | | |Histogram good. Battery longevity 8.4 years. | | |Normal and stable device function. | | |Quarterly remote monitoring. | | | | | + + + + + | Procedure Note | + + | Randy Figueroa MD - 03/24/2019 1:00 PM PDT PATIENT NAME: Bob Will | | : 1955: AGE: 63 y.o.ICD Evaluation ReportJuly 2018Reason for | | evaluation: routineIndication for ICD: Ischemic cardiomyopathy (I25.5, 414.8); | | Implantable defibrillator reprogramming/check (Z45.02, V53.32); Acute on chronic | | systolic congestive heart failure (HCC) (I50.23, 428.23, 428.0); Biventricular ICD | | (implantable cardioverter-defibrillator) in place (Z95.810, V45.02)Patient was seated | | and reclined and device was interrogated. Defibrillator parameters, battery status, | | percentages pacing and significant arrhythmias were reviewed. Heart rate histograms were | | assessed for adequate heart rate response and any alerts reviewed. Appropriate lead | | impedance testing was performed. Pacing impedances were reviewed for any significant | | changes. Sensing tests were performed by decreasing LRL. Adequacy of pacing thresholds | | were tested by increasing LRL for each lead and recorded for loss of capture. Final | | outputs were assessed for adequate safety margins.Please see the scanned Paceart report | | and device PDF for further details. Data collected by Kelly Rodriguez RNThe technical | | aspect of downloading device data was supervised by Randy Figueroa MD Underlying | | rhythm: sinus rhythm 75 beats.3 mode switch episodes accounting for <0.1% of the time. | | The longest occurred 03/04/19 at 12:33 AM for 10 minutes 11 seconds. EGM is consistent | | with atrial flutter with variable conduction with rate 70-87 beats.0 ventricular high | | rate episodes. No tachycardia therapies recommended or delivered.PVC singles | | <0.2/hour PVC runs <0.1/hourBiventricular pacing 98.3%Histogram good. | | Battery longevity 8.4 years.Normal and stable device function.Quarterly remote | | monitoring. | |Underlying rhythm: sinus rhythm 75 beats. | |3 mode switch episodes accounting for <0.1% of the time. The longest occurred 03/04/19 at 1 2:33 AM for 10 minutes 11 seconds. EGM is consistent with atrial flutter with variable condu ction with rate 70-87 beats. | |0 ventricular high rate episodes. No tachycardia therapies recommended or delivered. | |PVC singles <0.2/hour | |PVC runs <0.1/hour | |Biventricular pacing 98.3% | |Histogram good. Battery longevity 8.4 years. | |Normal and stable device function. | |Quarterly remote monitoring. | + + + +---------+ + + [...] implantable cardiac defibrillator | + + | CASING FLUID TENDER-D (ZANED) Medtronic 10/16/17 EULOGIO Raulitogideon | + + | Ischemic cardiomyopathy Other specified forms of chronic ischemic heart disease | + + | Acute on chronic systolic congestive heart failure (HCC) Acute on chronic systolic | | heart failure | + + documented in this encounter"
--- OUTSIDE RECORDS SUMMARY | ~2020-03-04 | XMS | Encounter Summary ---
Demographics + + + | Address | [address] | | | [place] [address] | + + + | Home Phone [...] Author | [facility] | | | and [place] | + + + | Organization | [facility] | | | and [place] | + + + | Address | Unknown | + + + | Phone | Unavailable | + + + Support + + + + + | Name | Relationship | Address | Phone | + + + + + | [place] Will | ECON | [place], [place] | | | | | [address] | | + + + + + Care Team Providers + +------+ + | Care Rn Clinical Resource Name | Role | Phone | + +------+ + PCP | Unavailable | + +------+ + Encounter Details +--------+ + + + + | Date | Type | Department | Care Team | Description | +--------+ + + + + | 04/01/ | Imaging | [facility] | Provider, | | | 2017 | Exam | [facility] | MD [address] | | | | | IMAGING [address] | [address] | | | | | [address] [place] | [place] [address] | | | | | [place] [address] | | | | | | [phone] | | | +--------+ + + + [...] [place] | | | | | | [address] | | | | | | | | +--------+ + + + + | 04/16/ | Office | Cardiology | Alin Anderson | | | 2019 | Visit | | MD [address] | | | | | | [address] | | | | | | [place] [address] | | | | | | [phone] | | | | | | | | +--------+ + + + + | 04/16/ | Procedure | Cardiology | | | 2019 | visit | | | | +--------+ + + + + | 04/25/ | Office | Cardiology | Rocio Pearl, | | | 2019 | Visit | | [address] | | | | | | [address] [facility] [place] | | | | | | [address] | | | | | | | | +--------+ + + + + documented as of this encounter Procedures + +--------+ + + + | Procedure Name | Priori | Date/Time | Associated Diagnosis | Comments | | | ty | | | | + +--------+ + + + | XR CHEST PA OR AP | Routin | 03/15/2017 | | Results for this | | | e | 4:30 AM | | procedure are in the | | | | PDT | | results section. | + +--------+ + + + documented in this encounter Results XR Chest PA or AP (03/15/2017 4:30 AM PDT) + + | Specimen | + + | | + + + + + | Narrative | Performed At | + + + | External films for comparison only - no result from [facility]. | [facility] | + + + + +---------+ + + | Performing | Address | City/State/Zipcode | Phone Number | | Organization | | | | + +---------+ + + | [facility] | | | | + +---------+ + + documented in this encounter Visit Diagnoses Not on filedocumented in this encounter"
--- OUTSIDE RECORDS SUMMARY | ~2020-03-04 | XMS | Encounter Summary ---
Demographics + + + | Address | [address] | | | [place] [address] | + + + | Home Phone [...] [place] | | | | | [address] | | + + + + + Care Team Providers + +------+ + | Care Core Oven Tender Name | Role | Phone | [...] | Cardiac | Diagnoses | [place], | [facility] | | | Services | Rehabilitatio | Ischemic | MD Lauren | [facility]OSPITAL | | | Required | n | cardiomyopat | [address] | PHYSICAL | | | | | hy | [address] 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 | Disorder [address] | | | | | sleep | [address] | | | | | apnea) | [address] | [place], | | | | | | [place], | [place] [address] | | | | | | [place] | Phone: | | | | | | [address] | [phone] | | | | | | Phone: | Fax: | | | | | | [phone] | [phone] | | | | | | Fax: | | | | | | | [phone] | | +--------+ + + + + + Diagnostic/Screening (Routine) +--------+--------+ + + + + | Status | Reason | Specialty | Diagnoses / | Referred By | Referred To | | | | | Procedures | Contact | Contact | +--------+--------+ + + + + | Closed | | Radiology | Diagnoses | | [address] | | | | | PAD | Jenny, | [address] | | | | | (peripheral | Hansa, [employer] | [place], | | | | | artery | [address] | [place] [address] | | | | | disease) | [address] | Phone: | | | | | (HCC) | JOSEFINA OLMEDOA, | [phone] | | | | | Procedures | [place] | Fax: | | | | | CT Angiogram | [address] | [phone] | | | | | Lower | Phone: | | | | | | Extremity | [phone] | | | | | | Left w Con | Fax: | | | | | | | [phone] | | +--------+--------+ + + + + [...] Closed | | Cardiology | Diagnoses | Walker, | [place], | | | | | | Young Barajas DO | MD Lauren | | | | | Atherosclero | [address] | [address] | | | | | tic heart | [address] | [address] | | | | | disease of | [address] | [place], | | | | | [place] | [address] | [place] [address] | | | | | coronary | [place] | Phone: | | | | | artery | [address] | [phone] | | | | | without | Phone: | Fax: | | | | | angina | [phone] | [phone] | | | | | pectoris ST [...] Description | +--------+---------+ + + + | 01/13/ | Office | [facility] | Jenny, | INDUSTRIAL ENGINEERING DIRECTOR-D (AICD) | | 2018 | Visit | CARDIOLOGY [address] | ADARSH Santo [address] | [employer] 10/16/17 | | | | [address] [place], | [address] [place], | [facility] | | | | [place] [address] | [place] [address] | (Primary Dx); PAD | | | | [phone] | [phone] | (peripheral artery | | | | | | disease) ([facility]); | | | | | | Acute anterior wall | | | | | | NM ([facility]); Coronary | | | | | | artery disease | | | | | | involving [place] | | | | | | coronary artery of | | | | | | [place] heart without | | | | | | angina pectoris; | | | | | | Ischemic | | | | | | cardiomyopathy; | | | | | | Tachycardia; H/O | | | | | | atrial flutter; | | | | | | Atrial fibrillation, | | | | | | unspecified type | | | | | | ([facility]); Implantable | | | | | | defibrillator | | | | | | reprogramming/check; | | | | | | LOUISA (obstructive | | | | | | sleep apnea) | +--------+---------+ + + + Social History [...] + + + | Blood Pressure | 118/66 | 01/13/2018 7:58 AM | | | | | PDT | | + + + + + | Pulse | 66 | 01/13/2018 7:58 AM | | | | | PDT | | + + + + + | Temperature | - | - | | + + + + + | Respiratory Rate | 16 | 01/13/2018 7:58 AM | | | | | PDT | | + + + + + | Oxygen Saturation | - | - | | + + + + + | Inhaled Oxygen | - | - | | | Concentration | | | | + + + + + | Weight | 94.8 kg (208 lb 15.9 | 01/13/2018 7:58 AM | | | | oz) | PDT | | + + + + + | Height | 177.8 cm (5' 10") | 01/13/2018 7:58 AM | | | | | PDT | | + + + + + | Body Mass Index | 29.99 | 01/13/2018 7:58 AM | | | | | PDT | | + + + + + documented in this encounter Patient Instructions Patient Instructions Hansa Alvarado ARNP - 01/13/2018 8:30 AM PDT1. Start Furosemide 20 mg once every morning 2. check blood pressure and pulse twice daily for two weeks and return the log to our offic e. 3. documented in this encounter Progress Notes Kelly Rodriguez RN - 01/13/2018 8:30 AM PDT PATIENT NAME: Bob Will : 1955: AGE: 62 y.o. Pacemaker Evaluation Report January 13, 2018 Reason for evaluation: routine Indication for pacemaker: ICD-10-CM ICD-9-CM 1. Implantable defibrillator reprogramming/check Z45.02 V53.32 Device Interrogation 2. INDUSTRIAL ENGINEERING DIRECTOR-D (AICD) [employer] 10/16/17 [facility] Z95.810 V45.02 Device Interrogation 3. Ischemic cardiomyopathy I25.5 414.8 Device Interrogation Patient was seated and/or reclined and device was interrogated. Pacemaker parameters, batte ry status, percentages pacing and significant arrhythmias were reviewed. Heart rate histogra ms were assessed for adequate heart rate response and any alerts reviewed. Appropriate lead impedance testing was performed. Pacing impedances were reviewed for any significant changes . Sensing tests were performed by decreasing LRL. Adequacy of pacing thresholds were tested by increasing LRL for each lead and recorded for loss of capture. Final outputs were assesse d for adequate safety margins. Please see the scanned Paceart report and device PDF for further details. Data collected by Kelly Rodriguez RN Underlying rhythm: sinus rhythm 66-70 beats. 0 mode switch episodes accounting for 0.0% of the time. No episodes. No tachycardia therapies recommended or delivered. PVC singles 1./7 /hour PVC runs 1.1/hour Biventricular pacing 97.5% Optivol showing an increase from baseline since December 2017. Histogram good. Battery longevity 9.8 years. Normal and stable device function. Quarterly remote monitoring. Device interrogation due in office in 12 months.Electronically signed by ALFONSO Pandey 01/13/2018 12:39 PM Hansa Morse ARNP - 01/13/2018 8:30 AM PDTFormatting of thi s note might be different from the original. PATIENT NAME: Bob Will : 1955: AGE: 62 y.o. PRIMARY CARE: Chato Matson MD OUTPATIENT FOLLOW UP VISIT Date of Service: 01/13/2018 HISTORY OF PRESENT ILLNESS: Bob Will is a 62 y.o. male with a history of coronary artery disease post recent anterior wall NM, post PTCA and stents of the left main, LAD and LCx on 03/15/17, cardiac shoc k, left atrial appendage thrombus, recent status post stents to , INDUSTRIAL ENGINEERING DIRECTOR-D placement in [facility] on 10/17/2017. He was last seen 11/11/2017 at which time further episodes of atrial fibrillation or atrial flutter in device interrogation today, her now, patient will continue some therapeutic medic al regimen and started cardiac rehabilitation, and follow-up in 2 months for office visit an d device interrogation we will recheck echocardiogram before his next appointment. Since that time, he has been having some episodically shortness of breath. It is only a per iodically. He has been having a slight increase in shortness of breath at times. He has had no chest pain or chest pressure. He has had no lightheadedness or dizziness or palpitations. He has no leg swelling. He has been dealing with left leg numbness and pain. He just recent ly started walking on a regular basis with his mother. They are walking 0.5 miles most days of the week. He is able to do so without experiencing any chest pain. He brings up that when he was in the hospital his oxygen would drop down "and beep". He was wondering if he is nee ding oxygen at night or not. MEDICAL, SURGICAL, AND PERSONAL HISTORY Past Medical, Surgical, Family, and Social History are reviewed in EPIC. CURRENT PROBLEMS Patient Active Problem List Diagnosis Acute anterior wall NM Coronary artery disease involving [place] coronary artery of [place] heart without angina pectoris Ischemic cardiomyopathy Pulmonary edema INDUSTRIAL ENGINEERING DIRECTOR-D (AICD) [employer] 10/16/17 [facility] [place] Implantable defibrillator reprogramming/check H/O atrial flutter Tachycardia GERD (gastroesophageal reflux disease) PAD (peripheral artery disease) CURRENT MEDICATIONS Current Outpatient Prescriptions Medication Sig Dispense Refill aspirin 81 MG tablet Take 81 mg by mouth Daily. atorvaSTATin (LIPITOR) 80 MG tablet Take 1 tablet by mouth nightly. 30 tablet 5 Cholecalciferol (VITAMIN D-3) 14047 units CAPS Take by mouth Once a week. clopidogrel (PLAVIX) 75 mg tablet Take 1 tablet by mouth Daily. 90 tablet 3 gabapentin (NEURONTIN) 300 mg capsule Take 300 mg by mouth 3 times daily. HYDROcodone-acetaminophen (NORCO) 5-325 mg per tablet Take 1-2 tablets by mouth every 4 hours as needed for Pain (Pain). 0 lisinopril (PRINIVIL, ZESTRIL) 5 mg tablet [...] malaise/fatigue. Respiratory: Positive for shortness of breath (A couple of times). Cardiovascular: Negative for chest pain, palpitations and leg swelling. Neurological: Negative for dizziness and weakness. Lightheaded = No OBJECTIVE: PHYSICAL EXAM BP 118/66 | Pulse 66 | Resp 16 | Ht 1.778 m (5' 10") | Wt 94.8 kg (208 lb 15.9 oz) | B NM 29.99 kg/m Physical Exam Constitutional: He is oriented [...] orders placed or performed in visit on 01/13/2018 ECG 12 lead Result Value Ref Range INTERPRETATION TEXT atrial sensed ventricular paced rhythm heart rate of 66 beats per minute LAB RESULTS reviewed during visit today primarily from [facility]: LIPID Lab Results Component Value Date [...] PLTEX 226 10/17/2017 I reviewed records from [facility] for office visit on wh ich is summarized in the HPI. Echocardiogram 11/24/2017 shows Mild left atrial dilatation, [...] no rmal IVC with normal respiratory collapse. Vas segmental pressures legs 11/24/2017 abnormal left ankle brachial index of 0.91 consisten t with single segment disease. Above data and testing is reviewed this [...] shock requiring IABP, pressor (dopa mine, norepinephrine). [facility] were on divert. Patient wasn't transferred to [facility]. B. Echocardiogram 03/17/2017 shows LV ejection fraction is severely de creased, visually estimated left ventricular ejection fraction is 20 - 25%, left ventricular systolic thickening is segmentally abnormal,mildly reduced RV systolic function. Normal R V size, no significant valvular abnormalities seen, compared to the most recent exam dated, 03/15/2017, there is no significant changes C. At [facility], patient had another STEMI code 03/29, with [...] to follow up closely with a local aesthetician in [place] . He wias dischargeed with a LifeVest [...] we will tr ansfer the patient to [facility] for consideration of urgent coronary revascularization. J. [...] medical care for ischemic cardiomyopathy M. Today, 01/13/2018, patient has not been very physically active although he has been starting to exercise more regularly lately. He is walking half a mile on his walker w ith his mother. He has had no chest pain. However, he has noticed some increased dyspnea o ccasionally and periodically. He has had no leg swelling. He is in class II of the [place] [employer] functional class. There are no signs o r symptoms of overt congestive heart failure at this point. He is in heart failure stage C. On device interrogation he is Bi-V paced 97.5% of the time. His optimal has been increasi ng, therefore, we will put patient on a diuretic to try to help with his fluid retention. 2. Cardiomyopathy: A. Transthoracic Echocardiogram 10/11/17 shows [...] myocardium in these regions. C. S/P [employer] INDUSTRIAL ENGINEERING DIRECTOR-D 10-16-17 Dr Darby, [facility]. Ice interrogation today shows one episode of [...] with normal respiratory collapse. E. patient has had no further episodes of angina but some dyspnea occasionally. He has not been going to cardiac rehabilitation but he is starting to exercise again. 3. Ventricular tachycardia: A. Electrophysiology Study 10/16/17 [...] week ago. This was after h is NM and at the same time patient was having ventricular tachycardia. He was initiated on amiodarone and then discontinued before discharge. The plan is to monitor through his devic e and see if this is a problem that needs to be addressed. Patient is not on anticoagulatio n he was left that way from [facility]. Patient has had several GI bleeds and he felt at that poi nt that he is bleeding risk are higher therefore they will be possibility of reinitiating an ticoagulation if patient has more episodes of paroxysmal atrial flutter 6. Positive screening for PAD : A. Vas segmental pressures legs 11/24/2017 abnormal left ankle brachial index of 0.91 consi stent with single segment disease. B. Will refer patient for CT runoff angiogram of the lower extremities and determine whet her or not patient will be a candidate for stent 7. Normocytic anemia PLAN: 1. Start furosemide 20 mg by mouth daily and increase diet supplements of potassium 2. check blood pressure and pulse twice daily for two weeks and return the log to our offic e. 3. Patient will continue exercising on a regular basis and he has been encouraged to go ba ck to cardiac rehabilitation. 4. We will bring patient back in 2 months for office visit and device interrogation to see if his optiVal has improved. 5. Referral to patient for sleep apnea evaluation in the sleep Center. Portions of this chart may have been created with Register[employer] voice recognition software. Occasi onal wrong-word or sound-alike substitutions may have occurred due to the inherent canseco itations of voice recognition software. Please read the chart carefully and recognize, using context, where these substitutions have occurred. documented in th is encounter Miscellaneous Notes Addendum Note - Suzanne Cheng RN - 01/13/2018 8:30 AM PDT Addended by: BANDAR CHENG on: 01/14/2018 10:53 Modules accepted: Orders ddendum Note - Suzanne Cheng RN - 01/13/2018 8:30 AM PDT Addended by: SUZANNE CHENG on: 01/14 10:27 Modules accepted: Orders documented in t his encounter Plan of Treatment +--------+ + + + + | Date | Type | Specialty | Care Team | Description | +--------+ + + + + | 03/12/ | Office | Nephrology | [place], | | | 2019 | Visit | | ADARSH [address] | | | | | | [address] [facility] | | | | | | [address] | | | | | | [address] | | | | | | | | +--------+ + + + + | 04/16/ | Office | Cardiology | Alin Anderson | | | 2019 | Visit | | MD Cheryl Arreguin | | | | | | [address] | | | | | | [place] [address] | | | | | | [phone] | | | | | | | [...] [place] | | | | | | [address] | | | | | | | | +--------+ + + + + + + +--------+ + + | Name | Type | Priori | Associated Diagnoses | Order Schedule | | | | ty | | | + + +--------+ + + | * [facility] | Outpatient | Routin | LOUISA (obstructive | Ordered: 01/14/2018 | | Sleep Disorder - AMB | Referral | e | sleep apnea) | | | Referral | | | | | + + +--------+ + + | Referral to Cardiac | Outpatient | Routin | Ischemic | 1 Occurrences | | Rehab | Referral | e | cardiomyopathy | starting 01/14/2018 | | | | | | until 01/14/2019 | + + +--------+ + + documented as of this encounter Procedures + +--------+ + + + | Procedure Name | Priori | Date/Time | Associated Diagnosis | Comments | | | ty | | | | + +--------+ + + + | ECG 12 LEAD | Routin | 01/13/2018 | INDUSTRIAL ENGINEERING DIRECTOR-D (AICD) | Results for this | | | e | 7:54 AM | [employer] 10/16/17 | procedure are in the | | | | PDT | [facility] | results section. | | | | | (peripheral artery | | | | | | disease) (HCC) | | | | | | Acute anterior wall | | | | | | NM (HCC) Coronary | | | | | | artery disease | | | | | | involving [place] | | | | | | coronary artery of | | | | | | [place] heart without | | | | | | angina pectoris | | | | | | Ischemic | | | | | | cardiomyopathy | | | | | | Tachycardia H/O | | | | | | atrial flutter | | | | | | Atrial fibrillation, | | | | | | unspecified type | | | | | | (HCC) | | + +--------+ + + + documented in this encounter Results CT Angiogram Lower Extremity Left w Con (01/18/2018 9:30 AM PDT) + + | Specimen | + + | | + + + + + | Narrative | Performed At | + + + | TECHNIQUE: After administration of 200 mL Omnipaque 350 | [facility] | | intravenously, axial CT imaging was obtained through the lower | | | extremities during arterial phase. Coronal and sagittal reformats | | | were acquired. CLINICAL INFORMATION: PDA left leg COMPARISON: | | | None available. FINDINGS: BONES: No acute osseous | | | abnormality. No osteoblastic or osteolytic lesion. Mild bilateral | | | hip and the degenerative changes. Incidental right os acetabulum | | | appreciated. PELVIS: No pelvic lymphadenopathy. Scattered | | | colonic diverticula without pericolonic inflammation. No evidence | | | to suggest bowel obstruction. No free pelvic fluid. Bilateral | | | hydroceles, right greater than left. VASCULATURE: Aorta: Mild | | | irregular atherosclerotic vascular plaque involving the visualized | | | portions of the distal aorta with mild fusiform ectasia measuring up | | | to 2.9 cm in greatest diameter. Superior mesenteric artery: The | | | visualized portions are patent. The origin is not visualized. | | | Inferior mesenteric artery: Appears to be patent. Right lower | | | extremity: Mild scattered atherosclerotic plaque without | | | hemodynamically significant stenosis including the common iliac, | | | external iliac, common femoral, superficial femoral, profundus | | | femoris, and popliteal arteries. The anterior tibial artery appears | | | patent to the distal tibia/tibial level. The tibioperoneal trunk is | | | patent as is the peroneal artery and proximal to midportion of the | | | posterior tibial artery. The posterior tibial and dorsalis pedis | | | arteries are not opacified with contrast at the level of the ankle. | | | No aneurysm. Left lower extremity: Mild scattered | | | atherosclerotic plaque throughout the lower extremity. Mild short | | | segment stenosis noted at the proximal mid aspects of the external | | | iliac artery, approximately 40%. The internal iliac artery is | | | occluded at the origin. There is moderate short segment stenosis at | | | the distal external iliac and proximal common femoral artery, | | | approximately 60-70%. The profundus femoris artery appears patent. | | | Mild short segment stenosis at the distal superficial femoral | | | artery, approximately 40-50%. The anterior tibial artery appears | | | patent. The dorsalis pedis artery is patent. The tibioperoneal | | | trunk, peroneal artery, and posterior tibial artery are patent. No | | | aneurysm. IMPRESSION - Diffuse atherosclerotic vascular | | | disease with mild infrarenal aortic ectasia measuring up to 2.9 cm. | | | Multifocal mild to moderate arterial stenosis at the left lower | | | extremity, most notable at the distal external iliac/proximal common | | | femoral artery with 60-70% stenosis. The dorsalis pedis and | | | posterior tibial arteries are not opacified with contrast at the | | | level of the ankle consistent with absent or diminished flow. | | | Bilateral hydroceles. Diverticulosis. Dictated and Signed by: | | | Alin Ramírez MD Electronically signed: 01/18/2018 11:59 AM | | + + + + + | Procedure Note | + + | Sebastian, Rad Results In 01/18/2018 12:03 PM PDT | | TECHNIQUE: After administration of 200 mL Omnipaque 350 intravenously, axial CT | | imaging was obtained through the lower extremities during arterial phase. | | Coronal and sagittal reformats were acquired. | | | | CLINICAL INFORMATION: PDA left leg | | | | COMPARISON: None available. | | | | FINDINGS: | | | | BONES: No acute osseous abnormality. No osteoblastic or osteolytic lesion. Mild | | bilateral hip and the degenerative changes. Incidental right os acetabulum | | appreciated. | | | | PELVIS: | | No pelvic lymphadenopathy. Scattered colonic diverticula without pericolonic | | inflammation. No evidence to suggest bowel obstruction. No free pelvic fluid. | | | | Bilateral hydroceles, right greater than left. | | | | VASCULATURE: | | Aorta: Mild irregular atherosclerotic vascular plaque involving the visualized | | portions of the distal aorta with mild fusiform ectasia measuring up to 2.9 cm | | in greatest diameter. | | Superior mesenteric artery: The visualized portions are patent. The origin is | | not visualized. | | Inferior mesenteric artery: Appears to be patent. | | | | Right lower extremity: | | Mild scattered atherosclerotic plaque without hemodynamically significant | | stenosis including the common iliac, external iliac, common femoral, superficial | | femoral, profundus femoris, and popliteal arteries. The anterior tibial artery | | appears patent to the distal tibia/tibial level. The tibioperoneal trunk is | | patent as is the peroneal artery and proximal to midportion of the posterior | | tibial artery. The posterior tibial and dorsalis pedis arteries are not | | opacified with contrast at the level of the ankle. No aneurysm. | | | | Left lower extremity: | | Mild scattered atherosclerotic plaque throughout the lower extremity. Mild | | short segment stenosis noted at the proximal mid aspects of the external iliac | | artery, approximately 40%. The internal iliac artery is occluded at the origin. | | There is moderate short segment stenosis at the distal external iliac and | | proximal common femoral artery, approximately 60-70%. The profundus femoris | | artery appears patent. Mild short segment stenosis at the distal superficial | | femoral artery, approximately 40-50%. The anterior tibial artery appears | | patent. The dorsalis pedis artery is patent. The tibioperoneal trunk, peroneal | | artery, and posterior tibial artery are patent. No aneurysm. | | | | | | IMPRESSION - | | Diffuse atherosclerotic vascular disease with mild infrarenal aortic ectasia | | measuring up to 2.9 cm. | | | | Multifocal mild to moderate arterial stenosis at the left lower extremity, most | | notable at the distal external iliac/proximal common femoral artery with 60-70% | | stenosis. | | | | The dorsalis pedis and posterior tibial arteries are not opacified with contrast | | at the level of the ankle consistent with absent or diminished flow. | | | | Bilateral hydroceles. | | | | Diverticulosis. | | | | Dictated and Signed by: Alin Ramírez MD | | Electronically signed: 01/18/2018 11:59 AM | + + + +---------+ + + | Performing | Address | City/State/Zipcode | Phone Number | | Organization | | | | + +---------+ + + | [facility] | | | | + +---------+ + + ECG 12 lead (01/13/2018 7:54 AM PDT) + + + + + + | Component | Value | Ref Range | Performed | Pathologist | | | | | At | Signature | + + + + + + | VENTRICULAR | 66 | BPM | [facility] | | | RATE EKG | | | | | + + + + + + | ATRIAL RATE | 66 | BPM | [facility] | | + + + + + + | P-R | 154 | ms | [facility] | | | INTERVAL | | | | | + + + + + + | QRS | 158 | ms | [facility] | | | DURATION | | | | | + + + + + + | Q-T | 462 | ms | [facility] | | | INTERVAL | | | | | + + + + + + | Q-T | 484 | ms | [facility] | | | INTERVAL | | | | | | (CORRECTED) | | | | | + + + + + + | P WAVE AXIS | 59 | degrees | [facility] | | + + + + + + | QRS AXIS | 131 | degrees | [facility] | | + + + + + + | T AXIS | 42 | degrees | [facility] | | + + + + + + | INTERPRETAT | Atrial-sensed | | [facility] | | | ION TEXT | ventricular-paced | | | | | | rhythmAbnormal ECGWhen | | | | | | compared with ECG of | | | | | | 19-OCT-2017 | | | | | | 13:57,Electronic | | | | | | ventricular pacemaker | | | | | | has replaced Sinus | | | | | | rhythmConfirmed by | | | | | | LAUREN CHESTER MD | | | | | | ([id number]) on 01/13/2018 | | | | | | 1:06:44 PM | | | | + + [...] + | Diagnosis | + + | INDUSTRIAL ENGINEERING DIRECTOR-D (AICD) [employer] 10/16/17 EULOGIO Darby - Rigoberto | + + | PAD (peripheral artery disease) (HCC) Unspecified disorders of arteries and | | arterioles | + + | Acute anterior wall NM (HCC) Acute myocardial infarction of other anterior wall, | | episode of care unspecified | + + | Coronary artery disease involving [place] coronary artery of [place] heart without | | angina pectoris | + + | Ischemic cardiomyopathy Other specified forms of chronic ischemic heart disease | + + | Tachycardia Tachycardia, unspecified | + + | H/O atrial flutter Personal history of other diseases of circulatory system | + + | Atrial fibrillation, unspecified type (HCC) | + + | Implantable defibrillator reprogramming/check Fitting and adjustment of automatic | | implantable cardiac defibrillator | + + | LOUISA (obstructive sleep apnea) Obstructive sleep apnea (adult) (pediatric) | + + documented in this encounter
--- OUTSIDE RECORDS SUMMARY | ~2020-03-04 | XMS | Encounter Summary ---
Demographics + + + | Address | [address] | | | [place] [address] | + + + | Home Phone [...] [place] | | | | | [address] | | + + + + + Care Team Providers + +------+ + | Care Student Life Coordinator Name | Role | Phone | [...] | | | | (congestive) | [place] [address] | [address] Phone: | | | | | heart | Phone: | [phone] | | | | | failure | [phone] | Fax: | | | | | (HCC) | Fax: | [phone] | | | | | Chronic | [phone] | | | | | | systolic [...] + + | 10/05/ | Office | [facility] | Rocio Em, | Ischemic | | 2020 | Visit | CARDIOLOGY [place] | [address] | cardiomyopathy | | | | [address] | [place] | (Primary Dx); | | | | [address] | [address] | Chronic systolic | | | | [place] | | congestive heart | | | | [address] | | failure (HCC); | | | | [phone] | | Coronary artery | | | | | | disease involving | | | | | | [place] coronary | | | | | | artery of [place] | | | | | | heart [...] of visit: 10/05/2019 Primary Care Physician: Amy Olivares MD CHIEF [...] heart failur e. Used to follow-up with [facility] last time evaluated in March 2019. Patient has a history of anterior myocardial infarction, hospitalized in [facility] [place], March 15, 2017 at that time was [...] function was severely impaired hence he has CERTIFIED MASTER LOCKSMITH therapy biventricular ICD implanted in Oct. Has been having recurrent in-stent stenosis. States post circumflex system whi ch was done in May 2018 in [facility]. Previously was treated with Sacubitril/Valsartan and metoprolol. [...] (with breakfast & dinner). Cholecalciferol (VITAMIN D-3) 72680 units CAPS Take 50,000 Units by mouth [...] ventricular paced appropriate sensing and capture. From [facility] showed atrial sensed and ventricular paced rhythm. 02/08/2019 From [facility] showing atrial flutter with ventricular paced [...] Last US carotid: Medtronic BiV ICD 10/16/2017, [id number] ASSESSMENT: Patient is 63 y.o. with 1. Severe coronary artery disease with recurrent instent restenosis, 2 angioplasties after the initial PCI on March 2017. 2. Severe ischemic cardiomyopathy, NYH class III, class C. 3. Chronic impaired systolic function, due to above. S/P CERTIFIED MASTER LOCKSMITH therapy. 4. Chronic kidney disease stage IV. [...] symptomatic hypotension. Will need to be on emt 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 clopidogrel and aspirin due to recurrent instent [...] | | | | | [address] [facility] | | | | | | [address] [place] | | | | | | [id number] | | | | | | | | +--------+ + + + + | 04/16/ | Office | Cardiology | Alin Anderson | | | 2019 | Visit | | MD [address] | | | | | | [address] | | | | | | [place] [address] | | | | | | [phone] | | | | | | | | +--------+ + + + + | 04/16/ | Procedure | Cardiology | | | | 2019 | visit | | | | +--------+ + + + + | 04/25/ | Office | Cardiology | Rocio Em, | | | 2019 | Visit | | MD [address] | | | | | | [place], [place] | | | | | | [address] | | | | | | | [...] + + | Coronary artery disease involving [place] coronary artery of [place] heart without | | angina pectoris | + + | Chronic kidney disease, stage IV (severe) (HCC) Chronic kidney disease, Stage IV | | (severe) | + + documented in this encounter
--- OUTSIDE RECORDS SUMMARY | ~2020-03-04 | XMS | Encounter Summary ---
Demographics + + + | Address | [address] | | | [place] [address] | + + + | Home Phone [...] [place], [place] | | | | | [address] | | + + + + + Care Team Providers + +------+ + | Care Sales And Leasing Consultant Name | Role | Phone | [...] | | involving | [address] [place] | | | | | [place] | [address] | [place] | | | | | coronary | [address] | [address] | | | | | artery of | Phone: | Phone: | | | | | [place] heart | [phone] | [phone] | | | | | without | Fax: | Fax: | | | | | angina | [phone] | [phone] | | | | | pectoris | | | +--------+ + + + + + Encounter Details +--------+---------+ + + + | Date | Type | Department | Care Team | Description | +--------+---------+ + + + | 12/09/ | Office | [facility] | Randy Figueroa, | Coronary artery | | 2019 | Visit | MED CTR CARDIAC | MD [address] | disease involving | | | | REHABILITATION [address] | [facility], | [place] coronary | | | | [address] [place] | [place] [address] | artery of [place] | | | | [place] [address] | [phone] | heart without angina | | | | [phone] | | pectoris (Primary | | | [...] Gael Ortega - 12/09/2018 10:00 AM PDT [facility] C[facility]ATION [address] [place] [address] Cardiac Rehab Discharge Date: 12/09/2018 Patient Information Patient Name: Bob Will Date of : 1955 Age: 63 y.o. Referring Provider: Randy Figuerao MD Encounter Diagnoses Code Name Primary? I25.10 Coronary artery disease involving [place] coronary artery of [place] heart without angina pectoris Yes Z98.61 Post PTCA Cardiac Rehab Phase II Leon atment Plan Bob Will (Bob) is a 62 y.o. 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 He has recently increased his metoprolol dose and is on Entresto. He arrives in electric [employer] heelchair and has been inactive. Fall Ri [...] control. Also began walking with his around Fitbit 3 days a week along with chasing [...] Healthy Dietary Education Date: 08/03/18 -Referral to Internet Manager: Date: -DVD: Healthy Eating For Life [...] exercise until stable. Date: Range: -Referral to Tents Assembler Date: Education Points listed below- Date Completed: [...] Unforeseen circumstances makes the constant trip from [place] to not be a viable option a [...] [place] | | | | | | [id number] | | | | | | | | +--------+ + + + + | 04/16/ | Office | Cardiology | Alin Anderson | | | 2019 | Visit | | MD [address] | | | | | | [address] | | | | | | [place] [address] | | | | | | [phone] | | | | | | | | +--------+ + + + + | 04/16/ | Procedure | Cardiology | | | | 2019 | visit | | | | +--------+ + + + + | 04/25/ | Office | Cardiology | Rocio Pearl, | | | 2019 | Visit | | MD [address] | | | | | | [place], [place] | | | | | | [address] | | | | | | | | +--------+ + + + + documented as of this encounter Visit Diagnoses + + | Diagnosis | + + | Coronary artery disease involving [place] coronary artery of [place] heart without | | angina pectoris - Primary | + + | Post PTCA Postsurgical percutaneous transluminal coronary angioplasty status | + + documented in this encounter
--- OUTSIDE RECORDS SUMMARY | ~2020-03-04 | XMS | Encounter Summary ---
Demographics + + + | Address | [address] | | | [place] [address] | + + + | Home Phone | | + + + | Preferred Language | Unknown | + + + | Marital Status | | + + + | Hindu Affiliation | Unknown | + + + | Race | Unknown | + + + | Ethnic Group | Unknown | + + + Author + + + | Author | [facility] | | | and [place] | + + + | Organization | [facility] | | | and [place] | + + + | Address | Unknown | + + + | Phone | Unavailable | + + + Support + + + + + | Name | Relationship | Address | Phone | + + + + + | [place] Will | ECON | [place], [place] | | | | | [address] | | + + + + + Care Team Providers + +------+ + | Care Teacher Adult Education Name | Role | Phone | + +------+ + PCP | Unavailable | + +------+ + Encounter Details +--------+ + + + + | Date | Type | Department | Care Team | Description | +--------+ + + + + | 03/30/ | Abstract | [facility] | Randy Figueroa, | | | 2017 | | CARDIOLOGY [address] | MD [address] [place] | | | | | [place], | [place], | | | | | [place] [address] | [place] [address] | | | | | [phone] | [phone] | | | | | | | [...] [place] | | | | | | [address] | | | | | | | | +--------+ + + + + | 04/16/ | Office | Cardiology | Alin Anderson | | | 2019 | Visit | | MD [address] | | | | | | [address] | | | | | | [place] [address] | | | | | | [phone] | | | | | | | [...] [place] | | | | | | [address] | | | | | | | [...] Metabolic Panel (03/26/2018) + +-------+ + + + | Component | Value | Ref Range | Performed | Pathologist | | | | | At | Signature | + +-------+ + + + | Anion Gap | 21 | 7 - 21 mmol/L | | | + +-------+ + + + | Bun/Creatin | 14.8 | 6 - 28.6 | | | | ine | | | | | + +-------+ + + + + + | Specimen | + + | Blood | + + External Lab: BUN (03/26/2018) + +--------+ + + + | Component | Value | Ref Range | Performed | Pathologist | | | | | At | Signature | + +--------+ + + + | BUN, | 26 (A) | 6 - 23 [...] Lab: Glucose (03/26/2018) + +---------+ + + + | Component | Value | Ref Range | Performed | Pathologist | | | | | At | Signature | + +---------+ + + + | Glucose, | 135 (A) | 70 - 100 [...] Lab: Calcium (03/26/2018) + +-------+ + + + | Component | Value | Ref Range | Performed | Pathologist | | | | | At | Signature | + +-------+ + + + | Calcium, | 9.2 | 8.5 - 10.2 | EXTERNAL | | | External | [...] Carbon Dioxide (03/26/2018) + +-------+ + + + | Component | Value | Ref Range | Performed | Pathologist | | | | | At | Signature | + +-------+ + + + | Carbon | 20 | - 31 | EXTERNAL | | | [...] Lab: Chloride (03/26/2018) + +-------+ + + + | Component | Value | Ref Range | Performed | Pathologist | | | | | At | Signature | + +-------+ + + + | Chloride, | 104 | 95 - 112 | EXTERNAL | [...] Lab: Potassium (03/26/2018) + +-------+ + + + | Component | Value | Ref Range | Performed | Pathologist | | | | | At | Signature | + +-------+ + + + | Potassium, | 4.3 | 3.6 - 5.1 | EXTERNAL | [...] Lab: Sodium (03/26/2018) + +-------+ + + + | Component | Value | Ref Range | Performed | Pathologist | | | | | At | Signature | + +-------+ + + + | Sodium, | 140 | 132 - 143 | EXTERNAL | [...] Lab: eGFR (03/26/2018) + +--------+ + + + | Component | Value | Ref Range | Performed | Pathologist | | | | | At | Signature | + +--------+ + + + | eGFR, | 39 (A) | 60 | EXTERNAL | | [...] Creatinine (03/26/2018) + + + + + + | Component | Value | Ref Range | Performed | Pathologist | | | | | At | Signature | + + + + + + | Creatinine, | 1.76 (A) | 0.7 - 1.25 [...]
--- OUTSIDE RECORDS SUMMARY | ~2020-03-04 | XMS | Encounter Summary ---
Demographics + + + | Address | [address] | | | [place] [address] | + + + | Home Phone | | + + + | Preferred Language | Unknown | + + + | Marital Status | | + + + | Yazidi Affiliation | NRP | + + + | Race | White | + + + | Ethnic Group | Not or | + + + Author + + + | Author | [facility] | + + + | Organization | [facility] | + + + | Address | Unknown | + + + | Phone | Unavailable | + + + Support + + + + + | Name | Relationship | Address | Phone | + + + + + | [place] Will | ECON | [address] | | | | | [place] [address] | | + + + + + Care Team Providers + +------+ + | Care Formation Fracturing Operator Name | Role | Phone | [...] Encounter | Non-Invasive Testing | [address] | | | | | at [facility] | [facility] | | | | | [address] | [place] [address] | | | | | [address] | | | | | | [place], [address] [place] [address] | | | | | | [place], [place] | | | | | | [address] | | | | | | [phone] | | | +--------+ + + + [...]
--- OUTSIDE RECORDS SUMMARY | ~2020-03-04 | XMS | Encounter Summary ---
Demographics + + + | Address | [address] | | | [place] [address] | + + + | Home Phone [...] [place], [place] | | | | | [address] | | + + + + + Care Team Providers + +------+ + | Care Tripe Finisher Name | Role | Phone | + [...] | | PAD | Jenny, | [address] | | | | | (peripheral | Hansa, AWARD MACHINE OPERATOR | [place], | | | | | artery | [address] | [place] [address] | | | | | disease) | [address] | Phone: | | | | | (HCC) | [place], | [phone] | | | | | Procedures | [place] | Fax: | | | | | CT Angiogram | [address] | [phone] | | | | | Lower | Phone: | | | | | | Extremity | [phone] | | | | | | Left w Con | Fax: | | | | | | | [phone] | | +--------+--------+ + + + + [...] | | | | | PAD | [place], | [address] | | | | | (peripheral | Hansa, AWARD MACHINE OPERATOR | [place], | | | | | artery | [address] | [place] [address] | | | | | disease) | [address] | Phone: | | | | | (HCC) | [place], | [phone] | | | | | Procedures | [place] | Fax: | | | | | CT Angiogram | [address] | [phone] | | | | | Lower | Phone: | | | | | | Extremity | [phone] | | | | | | Left w Con | Fax: | | | | | | | [phone] | | +--------+--------+ + + + + Encounter Details +--------+ + + + + | Date | Type | Department | Care Team | Description | +--------+ + + + + | 01/18/ | Hospital | [facility] | [place], | PAD (peripheral | | 2018 | Encounter | MED CTR [facility] [address] | JERICHO SantoP [address] | artery disease) | | | | [address] [place], | [place], | (HCC) | | | | [place] [address] | [place] [address] | | | | | [phone] | [phone] | | | | | | | [...] 0 | | | | (VITAMIN D-3) [address] | mouth Once a week. | | [...] +---------+ + + | furosemide (LASIX) | Take 1 tablet by | 30 | 4 | 01/14/20 | | | 20 mg tablet | mouth Daily. | tablet | | 18 | 8 | + [...] + +---------+ + + | lisinopril | 2 times daily. | | 0 | 01/08/20 | | | (PRINIVIL, ZESTRIL) [...] +---------+ + + | pantoprazole | Take 40 mg by mouth | | 0 | | | | (PROTONIX) 40 mg [...] [place] | | | | | | [address] | | | | | | | | +--------+ + + + + | 04/16/ | Office | Cardiology | Alin Anderson | | | 2019 | Visit | | MD Cheryl Arreguin | | | | | | [address] | | | | | | [place] [address] | | | | | | [phone] | | | | | | | [...] [place] | | | | | | [address] | | | | | | | | +--------+ + + + + documented as of this encounter Procedures + +--------+ + + + | Procedure Name | Priori | Date/Time | Associated Diagnosis | Comments | | | ty | | | | + +--------+ + + + | CT ANGIOGRAM LOWER | Routin | 01/18/2018 | PAD (peripheral | Results for this | | EXTREMITY LEFT W | e | 9:30 AM | artery disease) | procedure are in the | | CONTRAST | | PDT | ([facility]) | results section. | + +--------+ + [...] + | Sebastian, Rad Results In - 01/18/2018 12:03 PM PDT | | TECHNIQUE: [...] | | | + +--------+ +---------+------+------+ | iohexol (OMNIPAQUE 350) 350 | Given | 01/19/20 | 200 mLs | | | | mg/mL injection 200 mL 200 mL, | | 18 9:32 | | | | | Intravenous, ONCE PRN, Other, | | AM PDT | | | | | Starting 01/18/18 at 0931, For | | | | | | | 1 dose, Cat Scanner | | | | | | + +--------+ +---------+------+------+ +---+---+ | | | +---+---+ + +------+ +---------+-------+---+ | sodium chloride 0.9% (NS) bolus | Push | 01/19/20 | 100 mLs | 6000 | | | 100 mL 100 mL, Intravenous, | | 18 9:32 | | mL/hr | | | Administer over 1 Minutes, ONCE | | AM PDT | | | | | PRN, for contrast study, Starting | | | | | | | 01/18/18 at 0931, For 1 dose, | | | | | | | May infuse at a different rate | | | | | | | per protocol., Cat Scanner | | | | | | + +------+ +---------+-------+---+ +---+---+ | | | +---+---+ documented in this encounter"
--- OUTSIDE RECORDS SUMMARY | ~2020-03-04 | XMS | Encounter Summary ---
Demographics + + + | Address | [address] | | | [place] [address] | + + + | Home Phone | | + + + | Preferred Language | Unknown | + + + | Marital Status | | + + + | Taoism Affiliation | Unknown | + + + | Race | Unknown | + + + | Ethnic Group | Unknown | + + + Author + + + | Author | [facility] | | | and [place] | + + + | Organization | [facility] | | | and [place] | + + + | Address | Unknown | + + + | Phone | Unavailable | + + + Support + + + + + | Name | Relationship | Address | Phone | + + + + + | [place] Will | ECON | [place] | | | | | [address] | | + + + + + Care Team Providers + +------+ + | Care Aerospace Medicine Physician Name | Role | Phone | [...] Description | +--------+---------+ + + + | 09/06/ | Office | [facility] | Amy Olivares V, | Chronic systolic CHF | | 2019 | Visit | MED CTR CARDIAC | MD [address] | (congestive heart | | | | REHABILITATION [address] | [address] [place], [place] | failure) ([facility]) | | | | [address] | [address] | | | | | [place] [address] | | | | | | [phone] | | | +--------+---------+ + + + [...] encounter Progress Notes Lorelei Cruz RRT - 09/06/2019 9:15 AM PSTFormatting of this note might be different fr om the original. [facility] C[facility] RE[facility]ILITATION [address] [facility] [address] Cardiac Rehab Date: 09/06/2019 Patient Information Patient Name: Bob Will Date of : 1955 Age: 63 y.o. Encounter Diagnoses Code Name Primary? I50.22 Chronic systolic CHF (congestive heart failure) ([facility]) Number of Visits Approved: 34 kx Taken Medications Today? Yes Any Changes in Medications? No Any Problems to Report? No Pain level? 3/10, leg Ventricular paced rhythm without ectopy. Pre O2: 97%, Durin%, SBP prior to exercise 10 8/80; post B/P 108/50. 201 lbs Compliant with medications and therapeutic lifestyle changes. Patient is being discharged due to insurance running out. Any abnormal vital signs or rhythm strips will be reported in progress note. Electronically signed by: Lorelei Cruz RRT, 09/06/2019 2:21 PM Patient Name: Bob Will/: 1955/ ly signed by Lorelei Cruz RRT at 09/06/2019 5:41 PM PSTdocumented in this encounter Plan of [...] | | | | | [place] [address] | | | | | | [phone] | | | | | | | [...] [place] | | | | | | [address] | | | | | | | | +--------+ + + + + documented as of this encounter Visit Diagnoses + + | Diagnosis | + + | Chronic systolic CHF (congestive heart failure) (HCC) | + + documented in this encounter"
--- OUTSIDE RECORDS SUMMARY | ~2020-03-04 | XMS | Encounter Summary ---
Demographics + + + | Address | [address] | | | [place] [address] | + + + | Home Phone [...] [place], [place] | | | | | [address] | | + + + + + Care Team Providers + +------+ + | Care Test Borer Helper Name | Role | Phone | + +------+ + PCP | Unavailable | + +------+ + Reason for Visit + +--------+ + | Reason | Onset | Comments | | | Date | | + +--------+ + | Medication Refill | 11/10/ | | | | 2018 [...] [address] | | | | | [place], | [place], | | | | | [place] [address] | [place] [address] | | | | | [phone] | [phone] | | | | | | | [...] | | | | [address] [place] | | | | | | [address] | | | | | | | | +--------+ + + + + | 04/16/ | Office | Cardiology | Alin Anderson | | | 2019 | Visit | | MD [address] | | | | | | [address] | | | | | | [place] [address] | | | | | | [phone] | | | | | | | [...] [place] | | | | | | [address] | | | | | | | | +--------+ + + + + documented as of this encounter Visit Diagnoses Not on filedocumented in this encounter"
--- OUTSIDE RECORDS SUMMARY | ~2020-03-04 | XMS | Encounter Summary ---
Demographics + + + | Address | [address] | | | [place] [address] | + + + | Home Phone | | + + + | Preferred Language | Unknown | + + + | Marital Status | | + + + | Episcopal Affiliation | Unknown | + + + | Race | Unknown | + + + | Ethnic Group | Unknown | + + + Author + + + | Author | [facility] | | | and [place] | + + + | Organization | [facility] | | | and [place] | + + + | Address | Unknown | + + + | Phone | Unavailable | + + + Support + + + + + | Name | Relationship | Address | Phone | + + + + + | [place] Will | ECON | [place] | | | | | [address] | | + + + + + Care Team Providers + +------+ + | Care Internet Marketing Intern Name | Role | Phone | [...] | | | heart | [place], | [place] | | | | | failure | [place] [address] | [place], [place] | | | | | (HCC) | Phone: | [address] | | | | | I50.22 | [phone] | Phone: | | | | | Procedures | Fax: | [phone] | | | | | Cardiac | [phone] | Fax: | | | | | Rehab | | [phone] | +--------+--------+ + + + + Encounter [...] Way [place], [place] | failure) ([facility]) | | | | [address] | [address] | (Primary Dx) | | | | [place] [address] | | | | | | [phone] | | | +--------+---------+ + + + [...] of this encounter Progress Notes Lorelei Cruz, SALVAGE REPAIRER - 07/26/2019 12:00 PM PSTFormatting of this note might be different fr om the original. [facility] CARDIAC REHABILITATION [address] [facility] [address] Cardiac Rehab Date: 07/26/2019 Patient Information Patient [...] | 03/12/ | Office | Nephrology | [facility] | | | 2019 | Visit | | [address] | | | | | | [facility] | | | | | | [address] [place] | | | | | | [address] | | | | | | | | +--------+ + + + + | 08/10/ | Office | Cardiology | Alin Anderson | | | 2019 | Visit | | MD Cheryl Arreguin | | | | | | [address] | | | | | | [place] [address] | | | | | | [phone] | | | | | | | [...] [place] | | | | | | [address] | | | | | | | | +--------+ + + + + documented as of this encounter Visit Diagnoses + + | Diagnosis | + + | Chronic systolic CHF (congestive heart failure) (HCC) - Primary | + + documented in this encounter"
--- OUTSIDE RECORDS SUMMARY | ~2020-03-04 | XMS | Encounter Summary ---
Demographics + + + | Address | [address] | | | [place] [address] | + + + | Home Phone [...] [place] | | | | | [address] | | + + + + + Care Team Providers + +------+ + | Care Search Director Name | Role | Phone | [...] | | | heart | [place], | [place] | | | | | failure | [place] [address] | [place] | | | | | (HCC) | Phone: | [address] | | | | | I50.22 | [phone] | Phone: | | | | | Procedures | Fax: | [phone] | | | | | Cardiac | [phone] | Fax: | | | | | Rehab | | [phone] | +--------+--------+ + + + + Encounter Details +--------+---------+ + + + | Date | Type | Department | Care Team | Description | +--------+---------+ + + + | 06/21/ | Office | [facility] | Amy Olivares V, | Chronic systolic CHF | | 2019 | Visit | MED CTR CARDIAC | MD [address] | (congestive heart | | | | REHABILITATION [address] | [address] [place], [place] | failure) ([facility]) | | | | [address] | [id number] | | | | | [place] [address] | | | | | | [phone] | | | +--------+---------+ + + + [...] of this encounter Progress Gael Ortega - 06/21/2019 12:00 PM PDT [facility] [address] [place] [address] Cardiac Rehab Date: 06/21/2019 Patient Information Patient Name: Bob Will Date of : 1955 Age: 63 y.o. Encounter Diagnoses Code Name Primary? I50.22 Chronic systolic CHF (congestive heart failure) ([facility]) Number of Visits Approved: 34 kx Taken Medications Today? Yes Any Changes in Medications? No Any Problems to Report? No No complaints with exertion. Patient drives from a distance so informs us that next week wi ll be his last week. Ventricular paced rhythm without ectopy. Pre O2: 99%, SBP prior to exercise 100/56; during exercise 116/56. Compliant with medications and therapeutic lifestyle changes. Continue monitored exercise. Any abnormal vital signs or rhythm strips will be reported in progress note. Electronically signed by: Gael Woo, 06/21/2019 14:42 Patient Name: Bob Will/: 1955/ ly signed by Gael Woo at 06/21/2019 2:44 PM PDTdocumented in this encounter Plan of [...] [place] | | | | | | [id number] | | | | | | | | +--------+ + + + + | 04/16/ | Office | Cardiology | Alin Anderson | | | 2019 | Visit | | MD Cheryl Arreguin | | | | | | [address] | | | | | | [place] [address] | | | | | | [phone] | | | | | | | [...] [place] | | | | | | [address] | | | | | | | | +--------+ + + + + documented as of this encounter Visit Diagnoses + + | Diagnosis | + + | Chronic systolic CHF (congestive heart failure) (HCC) | + + documented in this encounter"
--- OUTSIDE RECORDS SUMMARY | ~2020-03-04 | XMS | Encounter Summary ---
Demographics + + + | Address | [address] | | | [place] [address] | + + + | Home Phone [...] [place], [place] | | | | | [address] | | + + + + + Care Team Providers + +------+ + | Care Card Checker Name | Role | Phone | + +------+ + PCP | Unavailable | + +------+ + Reason for Visit +--------+--------+ + | Reason | Onset | Comments | | | Date | | +--------+--------+ + | Other | 07/14/ | | | | 2017 | | +--------+--------+ + Encounter Details +--------+ + + + + | Date | Type | Department | Care Team | Description | +--------+ + + + + | 07/14/ | Telephone | [facility] | Jenny, | Other | | 2017 | | CARDIOLOGY [address] | ADARSH Santo [address] | | | | | [place], | [place], | | | | | [place] [address] | [place] [address] | | | | | [phone] | [phone] | | | | | | | [...] this encounter Miscellaneous Notes Telephone Encounter - Maggie Lombardo RN - 07/22/2017 3:09 PM PSTSpoke with patient's wif amy, as Bob was unable to get to the phone, and relayed message for no change in medication s and she said she would tell him............................................Yovana Lynn on 07/22/17 at 15:10 elephone Encounter - Hansa Alvarado ARNP - 07/22/2017 1:58 PM PSTLet's continue with same medication Electronically signed by: ADARSH Stevens 07/22/2017 13:59 elephone Encoun Lyndsay Ewing CMA - 07/14/2017 3:34 PM PST Next Visit:08/25/17 Blood pressure log received from patient as follows: Medication Change: Date BP AM Pulse AM BP PM Pulse PM 06/24/17 101/65 78 105/68 77 06/25/17 108/70 78 110/70 78 06/26/17 110/75 78 110/68 80 06/27/17 110/65 75 108/75 75 06/28/17 120/68 75 112/85 68 06/29/17 122/72 80 110/78 70 06/30/17 122/75 78 112/78 70 07/01/17 120/75 76 120/75 76 07/02/17 07/03/17 07/04/17 07/05/17 110/68 78 120/78 80 07/06/17 110/70 78 120/78 80 07/07/17 120/75 78 122/78 78 Additional Comments: I caught the flu so I did not do blood pressure th through the 28t h documented in this enc ounter Plan of [...] | | | | [address] [place] | | | | | | [address] | | | | | | | | +--------+ + + + + | 04/16/ | Office | Cardiology | Alin Anderson | | | 2019 | Visit | | MD Cheryl Arreguin | | | | | | [address] | | | | | | [place] [address] | | | | | | [phone] | | | | | | | [...] | | | | [address] [place] | | | | | | [address] | | | | | | | | +--------+ + + + + documented as of this encounter Visit Diagnoses Not on filedocumented in this encounter"
--- OUTSIDE RECORDS SUMMARY | ~2020-03-04 | XMS | Encounter Summary ---
Demographics + + + | Address | [address] | | | [place] [address] | + + + | Home Phone [...] [place], [place] | | | | | [address] | | + + + + + Care Team Providers + +------+ + | Care Specialty Food Products Supervisor Name | Role | Phone | [...] | +--------+ + + + + | 11/19/ | Implant | [facility] [place] | Randy Figueroa, | Remote Device | | 2018 | Monitor | CARDIOLOGY [address] | [address] | Interrogation | | | | [place], | [place], | (Primary Dx); COOLER CONVEY[place] LO[place] | | | | [place] [address] | [place] [address] | (AICD) Medtronic | | | | [phone] | [phone] | 10/16/17 [facility] Wilner; | | | | | | [...] encounter Procedure Notes Randy Figueroa MD - 11/19/2017 11:59 PM PDTAssociated Order(s): DEVICE INTERROGATION- R EMOTEProcedure(s): DEVICE INTERROGATION- REMOTEPre-Procedure Diagnose(s): Implantable defibr illator reprogramming/check; Biventricular ICD (implantable cardioverter-defibrillator) in p lace; Ischemic cardiomyopathyRefer to Paceart documentation and remote PDF scanned into Idea Device for remote interrogation results. Data collected by RONNY CHAPMAN RN Presenting rhythm: atrial sensed biventricular paced with rate at 85-88 beats. 0 mode switch episodes accounting for 0% of the time. 0 atrial high rate episodes. 0 ventricular high rate episodes. 0.4 PVC singles/hour <0.1 PVC runs/hour Histogram good Battery longevity 9.4 years. Apparent normal and stable device function. Device interrogation due in office in 01/13/18 Patient initiated report. documented in this encounter Plan of Treatment [...] | | | | | [place] [address] | | | | | | [phone] | | | | | | | [...] [place] | | | | | | [address] | | | | | | | | +--------+ + + + + documented as of this encounter Procedures + +--------+ + + + | Procedure Name | Priori | Date/Time | Associated Diagnosis | Comments | | | ty | | | | + +--------+ + + + | DEVICE | Routin | 11/19/2017 | Remote Device | Results for this | | INTERROGATION- | e | 11:59 PM | Interrogation COOLER CONVEYOR LOADER-D | procedure are in the | | REMOTE | | PDT | ([facility]) Medtronic | results section. | | | | | 10/16/17 EULOGIO Darby | | | | | | Ischemic | | | | | | cardiomyopathy | | + +--------+ + + + documented in this encounter Results Device Interrogation - Remote (11/19/2017 11:59 PM PDT) + + + | Narrative | Performed At | + + + | Randy | DONNA | | MD [place] 03/23/2018 11:19Refer to Donna documentation and | | | remote PDF scanned into Idea Device for remote interrogation results. Data | | | collected by RONNY CHAPMAN RN Presenting rhythm: atrial sensed | | | biventricular paced with rate at 85-88 beats. 0 mode switch episodes | | | accounting for 0% of the time.0 atrial high rate episodes. 0 | | | ventricular high rate episodes. 0.4 PVC singles/hour | | | <0.1 PVC runs/hour Histogram good Battery | | | longevity 9.4 years.Apparent normal and stable device | | | function.Device interrogation due in office in 01/13/18Patient initiated | | | report. | | |<0.1 PVC runs/hour | | |Histogram good Battery longevity 9.4 years. | | |Apparent normal and stable device function. | | |Device interrogation due in office in 01/13/18 | | |Patient initiated report. | | | | | + + [...] | cardiac defibrillator | + + | COOLER CONVEYOR LOADER-D (GABBI) Medtronic 10/16/17 EULOGIO Darby | + + | Ischemic cardiomyopathy Other specified forms of chronic ischemic heart disease | + + documented in this encounter"
--- OUTSIDE RECORDS SUMMARY | ~2020-03-04 | XMS | Encounter Summary ---
Demographics + + + | Address | [address] | | | [place] [address] | + + + | Home Phone | | + + + | Preferred Language | Unknown | + + + | Marital Status | | + + + | Evangelical Affiliation | Unknown | + + + | Race | Unknown | + + + | Ethnic Group | Unknown | + + + Author + + + | Author | [facility] | | | and [place] | + + + | Organization | [facility] | | | and [place] | + + + | Address | Unknown | + + + | Phone | Unavailable | + + + Support + + + + + | Name | Relationship | Address | Phone | + + + + + | [place] Will | ECON | [place] | | | | | [address] | | + + + + + Care Team Providers + +------+ + | Care Fiberglass Autobody Repairer Name | Role | Phone | [...] | | | heart | [place], | [place] | | | | | failure | [place] [address] | MARK[place] Herrera | | | | | (HCC) | Phone: | [address] | | | | | I50.22 | [phone] | Phone: | | | | | Procedures | Fax: | [phone] | | | | | Cardiac | [phone] | Fax: | | | | | Rehab | | [phone] | +--------+--------+ + + + + Encounter [...] | Way [place], [place] | failure) ([facility]) | | | | [address] | [address] | | | | | [place] [address] | | | | | | [phone] | | | +--------+---------+ + + + [...] Gael Ortega - 06/28/2019 12:00 PM PDT [facility] [address] [place] [address] Cardiac Rehab Date: 06/28/2019 Patient Information Patient Name: Bob Will Date of : 1955 Age: 63 y.o. Encounter Diagnoses Code Name Primary? I50.22 Chronic systolic CHF (congestive heart failure) ([facility]) Number of Visits Approved: 34 kx Taken [...] | | | | | [place] [address] | | | | | | [phone] | | | | | | | [...] [place] | | | | | | [address] | | | | | | | | +--------+ + + + + documented as of this encounter Visit Diagnoses + + | Diagnosis | + + | Chronic systolic CHF (congestive heart failure) (HCC) | + + documented in this encounter"
--- OUTSIDE RECORDS SUMMARY | ~2020-03-04 | XMS | Encounter Summary ---
Demographics + + + | Address | [address] | | | [place] [address] | + + + | Home Phone [...] [place], [place] | | | | | [address] | | + + + + + Care Team Providers + +------+ + | Care Link Knitting Machine Operator Name | Role | Phone [...] | | CARDIOLOGY [address] | [place], FACILITIES COORDINATOR [address] | | | | | [place], | [place], | | | | | [place] [address] | [place] [address] | | | | | [phone] | [phone] | | | | | | | [...] | | | | [address] [place] | | | | | | [address] | | | | | | | | +--------+ + + + + | 04/16/ | Office | Cardiology | Alin Anderson | | | 2019 | Visit | | MD [address] | | | | | | [address] | | | | | | [place] [address] | | | | | | [phone] | | | | | | | [...] [place] | | | | | | [address] | | | | | | | | +--------+ + + + + documented as of this encounter Visit Diagnoses Not on filedocumented in this encounter"
--- OUTSIDE RECORDS SUMMARY | ~2020-03-04 | XMS | Encounter Summary ---
Demographics + + + | Address | [address] | | | [place] [address] | + + + | Home Phone [...] [place], [place] | | | | | [address] | | + + + + + Care Team Providers + +------+ + | Care Ripening Room Operator Name | Role | Phone | + +------+ + PCP | Unavailable | + +------+ + Encounter Details +--------+ + + + + | Date | Type | Department | Care Team | Description | +--------+ + + + + | 08/26/ | Hospital | [facility] | Randy Figueroa, | Fatigue, unspecified | | 2018 | Encounter | MED CTR NUCLEAR | [address] | type; Implantable | | | | MEDICINE [address] | [address], | defibrillator | | | | [place], | [place] [address] | reprogramming/check | | | | [place] [address] | [phone] | | | | | [phone] | | | +--------+ + + + [...] 0 | | | | (VITAMIN D-3) [address] | mouth Once a week. | | [...] | | nasal spray | nasal spray [place] 2 | | | | | | [...] encounter Procedure Notes Randy Figueroa MD - 09/02/2018 1:27 PM PSTAssociated Order(s): HOLTER MONITOR - 48 JEF R PATIENT NAME: Bob Will : 1955: AGE: 62 y.o. PRIMARY CARE: DO MARILEE Mckinney PHYSICS TUTOR: Randy Figueroa MD 48-HOUR HOLTER MONITOR REPORT DATE: 08/26/2018 IMPRESSION: 1. The predominant rhythm is sinus rhythm with ventricular paced via ICD with the heart r ate ranging between 52 and 80 beats per minute. The average heart rate was 63 beats per mi nute during the 48:32 hour recording. 2. 10 ventricular singles. 3. 320 runs of sinus bradycardia with the longest run 4535 beats at a minimum rate of 52 beats per minute (10:04-2). 4. The patient did not return a diary or report any symptoms. Signed by: Randy Figueroa MD [facility] 09/02/2018, 13:17 d ocumented in this encounter Plan of Treatment +--------+ [...] [place] | | | | | | [address] | | | | | | | | +--------+ + + + + | 04/16/ | Office | Cardiology | Alin Anderson | | 2019 | Visit | | MD [address] | | | | | | [address] | | | | | | [place] [address] | | | | | | [phone] | | | | | | | [...] [place] | | | | | | [address] | | | | | | | | +--------+ + + + + documented as of this encounter Procedures + +--------+ + + + | Procedure Name | Priori | Date/Time | Associated Diagnosis | Comments | | | ty | | | | + +--------+ + + + | HOLTER MONITOR - 48 | Routin | 09/02/2018 | Fatigue, | Results for this | | HOUR | e | 1:27 PM | unspecified type | procedure are in the | | | | PST | | results section. | + +--------+ + + + documented in this encounter Results Holter monitor - 48 hour (09/02/2018 1:27 PM PST) + + + | Narrative | Performed At | + + + | Randy Figueroa MD 09/02/2018 13:28 PATIENT NAME: Bob IRIZARRY LARA | | Levi Will : 1955: AGE: 62 y.o. MEDICAL | | | RECORD NUMBER: [id number] PRIMARY CARE: Young Haque DO | | | READING PHYSICS TUTOR: Randy Figueroa MD 48-HOUR HOLTER | | [...] diary or report any symptoms. Signed by: Randy | | | MD [place] [facility] 09/02/2018, 13:17 | | + + + + +---------+ + + | Performing | Address | City/[facility] | Phone Number | | Organization | | | | + +---------+ + + | [facility] | | | | + +---------+ + + documented in this encounter Visit Diagnoses + + | Diagnosis | + + | Fatigue, unspecified type | + + | Implantable defibrillator reprogramming/check Fitting and adjustment of automatic | | implantable cardiac defibrillator | + + documented in this encounter"
--- OUTSIDE RECORDS SUMMARY | ~2020-03-04 | XMS | Encounter Summary ---
Demographics + + + | Address | [address] | | | [place] [address] | + + + | Home Phone [...] [place], [place] | | | | | [address] | | + + + + + Care Team Providers + +------+ + | Care Tower Supervisor Name | Role | Phone | [...] | 12/06/ | Refill | [facility] [place] | Jenny, | Medication Refill | | 2019 | | CARDIOLOGY [address] | [place], SHIPPING HAND [address] | | | | | [place], | [place], | | | | | [place] [address] | [place] [address] | | | | | [phone] | [phone] | | | | | | | [...] | | | | [address] [place] | | | | | | [address] | | | | | | | | +--------+ + + + + | 04/16/ | Office | Cardiology | Alin Anderson | | | 2019 | Visit | | MD [address] | | | | | | [address] | | | | | | [place] [address] | | | | | | [phone] | | | | | | | [...] [place] | | | | | | [address] | | | | | | | | +--------+ + + + + documented as of this encounter Visit Diagnoses Not on filedocumented in this encounter"
--- OUTSIDE RECORDS SUMMARY | ~2020-03-04 | XMS | Encounter Summary ---
Demographics + + + | Address | [address] | | | [place] [address] | + + + | Home Phone [...] [place], [place] | | | | | [address] | | + + + + + Care Team Providers + +------+ + | Care Merchandise Appraiser Name | Role | Phone | [...] + | 06/06/ | Implant | [facility] | Randy Figueroa, | Implantable | | 2018 | Monitor | CARDIOLOGY [address] | [address] | defibrillator | | | | [place], | [place], | reprogramming/check | | | | [place] [address] | [place] [address] | (Primary Dx); HEAD CHARGER-D | | | | [phone] | [phone] | (AICD) Medtronic | | | | | | 10/16/17 [facility] Wilner; | | | | [...] Paceart documentation and remote PDF scanned into [employer] for remote interrogation re sults. Data collected [...] | | | | | | W [facility] | | | | | | [address] [place] | | | | | | [address] | | | | | | | | +--------+ + + + + | 04/16/ | Office | Cardiology | Alin Anderson | | | 2019 | Visit | | MD Che[address] Arreguin | | | | | | [address] | | | | | | [place] [address] | | | | | | [phone] | | | | | | | [...] [place] | | | | | | [address] | | | | | | | [...] results section. | | | | | HEAD CHARGER-D (AICD) | | | | | | [...] remote PDF scanned into | | | [facility] for remote interrogation results. Data collected [...] implantable cardiac defibrillator | + + | HEAD CHARGER-D (AICD) Medtronic 10/16/17 EULOGIO Darby | + + | Congestive heart failure, unspecified HF chronicity, unspecified heart failure type | | (HCC) | + + documented in this encounter"
--- OUTSIDE RECORDS SUMMARY | ~2020-03-04 | XMS | Encounter Summary ---
Demographics + + + | Address | [address] | | | [place] [address] | + + + | Home Phone [...] [place] | | | | | [address] | | + + + + + Care Team Providers + +------+ + | Care Air Saw Operator Name | Role | Phone | + +------+ + | Amy Rodriguez MD | PCP | | + +------+ + Reason for Visit + +--------+ + | Reason | Onset | Comments | | | Date | | + +--------+ + | Medication | 03/11/ | | | Management | 2019 | | + +--------+ + Encounter Details +--------+ + + + + | Date | Type | Department | Care Team | Description | +--------+ + + + + | 03/11/ | Telephone | [facility] [place] | [place], | Medication | | 2019 | | NEPHROLOGY [address] | [address] | Management | | | | [address] | [address] [facility] [facility] | | | | | [place], [place] | [address] [place], [place] | | | | | [address] | [address] | | | | | [phone] | | | +--------+ + + + [...] Telephone Encounter - Lacho Mcghee ARNP - 03/14/2019 10:23 AM PDTRecommend that he try docusate stool softener 100 mg once or twice a day to prevent constipation. Miralax 1 7 g daily can also by used as needed for severe constipation. If he continues to have consti pation, please notify office. Also since the torsemide dose that he is taking is different than what his primary provider recommended, he needs to notify his primary provider. elephone Encounter - Sharon Saldana RN - 03/14 10:02 AM PDTPatient is taking torsemide 20 mg tablet, 2 tabs PO BID. Patient had stopped his iron supplement about a month ago d/t constipation. He would like t o avoid iron infusions, will restart ferrous sulfate 325 mg PO once daily. Patient would like both ondansetron and promethazine placed on his allergy list. Electronic ally signed by Sharon Saldana RN at 03/14/2019 10:09 AM PDTTelephone Encounter - Neena Saldana RN - 03/11/2019 9:18 AM PDTPharmacy was called. Patient was started on ondansetron and promethazine on 02/19/19 for nausea, both with a one time fill. LM asking patient to clarify what medication he believed caused the reaction (numbness and twitching.) Also LM asking patient to clarify torsemide dose and how long he has been taking iron suppl ement. elephone Encounter - Sharon Saldana RN - 03/11/2019 9:18 AM PDT----- Message from JESSICA Sethi CONTACT WORKER LITHOGRAPHY sent at 03/10/2019 11:54 PDT ----- Patient was supposed to call back to clarify what dose of torsemide he is actually taking ( he reported 40 mg BID, Dr. rodriguez's note said 60 mg BID). Can you check on that? Also he said he was given a med for nausea recently that made his arms numb and made him twitch. He had no idea what it was called. This med should be on his allergy list. Can you find out from [facility] what med this was? Thanks documented in this encounter Plan of Treatment [...] [place] | | | | | | [id number] | | | | | | | | +--------+ + + + + | 04/16/ | Office | Cardiology | Alin Anderson | | | 2019 | Visit | | MD [address] | | | | | | [address] | | | | | | [place] [address] | | | | | | [phone] | | | | | | | [...] [place] | | | | | | [address] | | | | | | | | +--------+ + + + + documented as of this encounter Visit Diagnoses Not on filedocumented in this encounter"
--- OUTSIDE RECORDS SUMMARY | ~2020-03-04 | XMS | Encounter Summary ---
Demographics + + + | Address | [address] | | | [place] [address] | + + + | Home Phone [...] [place] | | | | | [address] | | + + + + + Care Team Providers + +------+ + | Care Dispatcher Radioactive Waste Disposal Name | Role | Phone | + +------+ + | Chato Matson MD | PCP | | + +------+ + Encounter Details +--------+ + + + + | Date | Type | Department | Care Team | Description | +--------+ + + + + | 06/11/ | Orders Only | [facility] [place] | RahulyazshirazRandy, | Acute on chronic | | 2018 | | CARDIOLOGY [address] | [address] | systolic congestive | | | | [place], | [place], | heart failure (HCC) | | | | [place] [address] | [place] [address] | (Primary Dx); | | | | [phone] | [phone] | Coronary artery | | | | | | disease, angina | | | | | | presence | | | | | | unspecified, | | | | | | unspecified vessel | | | | | | or lesion type, | | | | | | unspecified whether | | | | | | northway or | | | | | | [...] | | | | | [place] [address] | | | | | | [phone] | | | | | | | | +--------+ + + + + | 04/16/ | Procedure | Cardiology | | | | 2019 | visit | | | | +--------+ + + + + | 04/25/ | Office | Cardiology | Rocio Pearl, | | | 2019 | Visit | | MD [address]yl [address] | | | | | | [address] [place] [place], [place] | | | | | | [address] | | | | | | | | +--------+ + + + + documented as of this encounter Visit Diagnoses + + | Diagnosis | + + | Acute on chronic systolic congestive heart failure (HCC) - Primary Acute on chronic | | systolic heart failure | + + | Coronary artery disease, angina presence unspecified, unspecified vessel or lesion | | type, unspecified whether northway or transplanted heart | + + documented in this encounter"
--- OUTSIDE RECORDS SUMMARY | ~2020-03-04 | XMS | Encounter Summary ---
Demographics + + + | Address | [address] | | | [place] [address] | + + + | Home Phone [...] [place] | | | | | [address] | | + + + + + Care Team Providers + +------+ + | Care Violin Repairer Name | Role | Phone | [...] | | | [address] | [address] | (Primary Dx) | | | | [place] [address] | | | | | | [phone] | | | +--------+---------+ + + + [...] [place] | | | | | | [address] | | | | | | | | +--------+ + + + + | 04/16/ | Office | Cardiology | Alin Anderson | | | 2019 | Visit | | MD Cheryl Arreguin | | | | | | [address] | | | | | | [place] [address] | | | | | | [phone] | | | | | | | [...] [place] | | | | | | [address] | | | | | | | | +--------+ + + + + documented as of this encounter Visit Diagnoses + + | Diagnosis | + + | Chronic systolic CHF (congestive heart failure) (HCC) - Primary | + + documented in this encounter"
--- OUTSIDE RECORDS SUMMARY | ~2020-03-04 | XMS | Encounter Summary ---
Demographics + + + | Address | [address] | | | [place] [address] | + + + | Home Phone [...] [place], [place] | | | | | [address] | | + + + + + Care Team Providers + +------+ + | Care Smoke Room Operator Name | Role | Phone [...] + | 12/01/ | Telephone | [facility] | Jenyn, | Other (appointment | | 2017 | | CARDIOLOGY [address] | ADARSH Santo [address] | confusion) | | | | [place], | [place], | | | | | [place] [address] | [place] [address] | | | | | [phone] | [phone] | | | | | | | [...] the office and left a message on InCast. He would like to speak with nursing [...] [place] | | | | | | [address] | | | | | | | | +--------+ + + + + | 04/16/ | Office | Cardiology | Alin Anderson | | | 2019 | Visit | | MD Cheryl Arreguin | | | | | | [address] | | | | | | [place] [address] | | | | | | [phone] | | | | | | | [...] [place] | | | | | | [address] | | | | | | | | +--------+ + + + + documented as of this encounter Visit Diagnoses Not on filedocumented in this encounter"
--- OUTSIDE RECORDS SUMMARY | ~2020-03-04 | XMS | Encounter Summary ---
Demographics + + + | Address | [address] | | | [place] [address] | + + + | Home Phone [...] [place] | | | | | [address] | | + + + + + Care Team Providers + +------+ + | Care Candle Wicker Name | Role | Phone | + [...] | | | heart | [place], | [place] | | | | | failure | [place] [address] | [place] | | | | | (HCC) | Phone: | [address] | | | | | I50.22 | [phone] | Phone: | | | | | Procedures | Fax: | [phone] | | | | | Cardiac | [phone] | Fax: | | | | | Rehab | | [phone] | +--------+--------+ + + + + Encounter Details +--------+---------+ + + + | Date | Type | Department | Care Team | Description | +--------+---------+ + + + | 07/07/ | Office | [facility] | Amy Olivares V, | Chronic systolic CHF | | 2019 | Visit | [facility] | MD [address] | (congestive heart | | | | REHABILITATION [address] [place], [place] | failure) ([facility]) | | | | [address] | [address] | | | | | [place] [address] | | | | | | [phone] | | | +--------+---------+ + + + [...] of this encounter Progress Gael Ortega - 07/07/2019 12:00 PM PDT [facility] CARDIAC RE[facility]ATION [address] [place] [address] Cardiac Rehab Date: 07/07/2019 Patient Information Patient Name: Bob Will Date of : 1955 Age: 63 y.o. Encounter Diagnoses Code Name Primary? I50.22 Chronic systolic CHF (congestive heart failure) ([facility]) Number of Visits Approved: 34 kx Taken Medications Today? Yes Any Changes in Medications? No Any Problems to Report? No No complaints with exertion. Ventricular paced rhythm without ectopy. Pre O2: 100%, Durin%, SBP prior to exercise 9 0/58; during exercise 92/68, post exercise: 110/58. Compliant with medications and therapeutic lifestyle changes. Continue monitored exercise. Any abnormal vital signs or rhythm strips will be reported in progress note. Electronically signed by: Gael Woo, 07/07/2019 10:40 Patient Name: Bob Will/: 1955/ ly signed by Gael Woo at 07/07/2019 2:52 PM PDTdocumented in this encounter Plan of [...] [place] | | | | | | [id number] | | | | | | | | +--------+ + + + + | 04/16/ | Office | Cardiology | Alin Anderson | | | 2019 | Visit | | MD Cheryl Arreguin | | | | | | [address] | | | | | | [place] [address] | | | | | | [phone] | | | | | | | [...] [place] | | | | | | [address] | | | | | | | | +--------+ + + + + documented as of this encounter Visit Diagnoses + + | Diagnosis | + + | Chronic systolic CHF (congestive heart failure) (HCC) | + + documented in this encounter"
--- OUTSIDE RECORDS SUMMARY | ~2020-03-04 | XMS | Encounter Summary ---
Demographics + + + | Address | [address] | | | [place] [address] | + + + | Home Phone [...] + + + | Author | [facility] | + + + | Organization | [facility] | + + + | Address | Unknown | + + + | Phone | Unavailable | + + + Support + + + + + | Name | Relationship | Address | Phone | + + + + + | [place] Will | ECON | [address] | | | | | [place] [address] | | + + + + + [...] at [facility] [address] | [address] | | | | | [address] | [place], [place] | | | | | Mailcode: 8 | [address] | | | | | [facility] | [phone] | | | | | and Healing, | | | | | | [facility] | | | | | | Floor [place], [place] | | | | | | [address] | | | | | | [phone] | | | +--------+ + + + [...]
--- OUTSIDE RECORDS SUMMARY | ~2020-03-04 | XMS | Encounter Summary ---
Demographics + + + | Address | [address] | | | [place] [address] | + + + | Home Phone [...] [place], [place] | | | | | [address] | | + + + + + Care Team Providers + +------+ + | Care Filament Shaper Name | Role | Phone | + [...] + + | 10/04/ | Telephone | [facility] | Carolina Lindarisa, | Other | | 2018 | | CARDIOLOGY [address] | MD [address] | | | | | [place], | [place], | | | | | [place] [address] | [place] [address] | | | | | [phone] | [phone] | | | | | | | [...] [place] | | | | | | [address] | | | | | | | | +--------+ + + + + | 04/16/ | Office | Cardiology | Alin Anderson | | | 2019 | Visit | | MD Cheryl Arreguin | | | | | | [address] | | | | | | [place] [address] | | | | | | [phone] | | | | | | | [...] [place] | | | | | | [address] | | | | | | | | +--------+ + + + + documented as of this encounter Visit Diagnoses Not on filedocumented in this encounter"
--- OUTSIDE RECORDS SUMMARY | ~2020-03-04 | XMS | Clinical Summary ---
Demographics + + + | Address | [address] | | | [place] [address] | + + + | Home Phone [...] [place] | | | | | [address] | | + + + + + Care Team Providers + +------+ + | Care Service Consultant Name | Role | Phone | + +------+ + | Amy Olivares MD | PCP | | + +------+ + Allergies + + + + + + | Active Allergy | Reactions | Severity | Noted | Comments | | | | | Date | | + + + + + + | Ondansetron | Other (See Comments) | | 03/14/20 | Twitching and | | | | | 19 | numbness of arm | + + + + + + | Promethazine | Other (See Comments) | | 03/14/20 | Twitching and | | | | | 19 | numbness of arm | + + + + + + Medications + + + +---------+------+------+-------+ | Medication [...] e | + + + +---------+------+------+-------+ | Cholecalciferol | Take 50,000 Units by | | 0 | | | Activ | | (VITAMIN D-3) 39[address] | mouth Once a week. | | | | | e | | units CAPS | | | | | | | + + + +---------+------+------+-------+ | traMADol (ULTRAM) | Take 150 mg by mouth | | 0 | | | Activ | | 50 mg tablet | Twice daily as | | | | | e | | | needed. | | | | | | + + + +---------+------+------+-------+ | nitroglycerin | Place 1 tablet under | 25 | 3 | 09/1 | | Activ | | (NITROSTAT) 0.4 [...] + + +---------+------+------+-------+ | gabapentin | Take 100 mg by mouth | | 0 | 06/2 | | Activ | | (NEURONTIN) 100 mg | 2 times daily. | | | 03/26 | | e | | capsule | | | | 19 | | | + + + +---------+------+------+-------+ | lisinopril | Take 2.5 mg by mouth | | 0 | 05/2 | | Activ | | (PRINIVIL,ZESTRIL) | Daily. | | | 20 | | e | | 2.5 MG tablet | | | | 19 | | | + + + +---------+------+------+-------+ | acetaminophen | Take 1,000 mg by | | 0 | 02/1 | | Activ | | (TYLENOL) 500 mg | mouth Daily as | | | 0/20 | | e | | tablet | needed. | | | 18 | | | + + + +---------+------+------+-------+ | torsemide | Take 60 mg by mouth | | 0 | 06/1 | | Activ | | (DEMADEX) 20 mg | 2 times daily. | | | 8/20 | | e | | tablet | | | | 19 | | | + + + +---------+------+------+-------+ | BISACODYL 5 mg EC | Take 5 mg by mouth | | 0 | 07/0 | | Activ | | tablet | Daily. | | | 120 | | e | | | | | | 19 | | | + + + +---------+------+------+-------+ | lactulose 10 g/15 | Take 15 mLs by mouth | | 0 | 07/1 | | Activ | | mL liquid | 2 times daily. | | | 8/20 | | e | | | | | | 19 | | | + + + +---------+------+------+-------+ | clopidogrel | Take 75 mg by mouth | | 0 | 01/0 | | Activ | | (PLAVIX) 75 mg | Daily. | | | 2/20 | | e | | tablet | | | | 20 | | | + + + +---------+------+------+-------+ | famotidine | Take 10 mg by mouth | | 0 | 01/0 | | Activ | | (PEPCID) 20 mg | nightly. | | | 2/20 | | e | | tablet | | | | 20 | | | + + + +---------+------+------+-------+ | metOLazone 2.5 mg | Take 2.5 mg by mouth | | 0 | 12/3 | | Activ | | tablet | Twice a week. | | | 0/20 | | e | | | | | | 19 | | | + + + +---------+------+------+-------+ | potassium chloride | Take 3 tablets by | | 0 | 01/0 | | Activ | | (KLOR-CON) 10 mEq | mouth 3 times daily. | | | 6/20 | | e | | CR tablet | | | | 20 | | | + + + +---------+------+------+-------+ | carvedilol (COREG) | Take 1 tablet by | 180 | 3 | 02/2 | | Activ | | 6.25 mg | mouth 2 times daily | tablet | | 1/20 | | e | | tabletIndications: | (with breakfast & | | | 20 | | | | Ischemic | dinner). | | | | | | | cardiomyopathy | | | | | | | + + + +---------+------+------+-------+ | atorvaSTATin | TAKE ONE TABLET BY | 90 | 3 | 04/0 | | Activ | | (LIPITOR) 80 MG | MOUTH EVERY DAY IN | tablet | | 7/20 | | e | | tablet | THE EVENING | | | 20 | | | + + + +---------+------+------+-------+ Active Problems + + + | Problem | Noted Date | + + + | Chronic kidney disease, stage IV (severe) | 06/06/2019 | + + + | Hypertension, renal disease, stage 1-4 or unspecified chronic | 03/10/2019 | | kidney disease | | + + + | Secondary hyperparathyroidism | 03/10/2019 | + + + | Anemia in stage 3 chronic kidney disease | 03/10/2019 | + + + | COPD (chronic [...] | 11/12/2017 | + + + | BORING INSPECTOR-D (ZANED) Medtronic 10/16/17 EULOGIO Darby | 10/19/2017 | + + + + + | Overview: Formatting of this note might be different from the | | original. MODEL NAME MODEL# SERIAL# DATE IMPLANTED GENERATOR | | Medtronic [id number] 10/16/17 RV LEAD Medtronic [id number] | | [id number] 10/16/17 A LEAD Medtronic [id number] 10/16/17 | | Coronary Sinus LEAD Medtronic [id number] 10/16/17 | | Indication: ischemic cardiomyopathy with reduced EF 30-35% Last | | Assessment & Plan: Medtronic AICD Placed [facility] 10/[facility] at [facility]. | | A:-Patient ventricular paced 100% this morning. No arrhythmias on | | telemetry.P:-No acute therapy. Continue current therapy. | | | | Last Assessment & Plan: Medtronic AICD Placed in 10/2017 at [facility]. | | | |A: | |-Patient ventricular paced 100% this morning. No arrhythmias on telemetry. | | | |P: | |-No acute therapy. Continue current therapy. | + + + + + | H/O atrial flutter | 10/19/2017 | + + + | Chronic systolic congestive heart failure | 10/17/2017 | + + + + + | Overview: Echocardiogram on 11/03/18 shows this was a | | technically difficult study with suboptimal views, the left | | ventricle is mildly dilated severely impaired systolic function | | EF 25-30%. Akinetic anterior, anteroseptal, inferosepal, inferior | | and apical segments, mild tricuspid regurgitation with moderate | | left atrial enlargement, there is no pericardial effusion, | | compared with the findings of the prior study, there has been no | | significant change, by Rocio Pearl. Last Assessment & | | Plan: A:-Patient appears to be euvolemic this exam.-Does elicit | | shortness of breath with activity.P:-Awaiting heart transplant | | team recommendations.-Continue current medical therapy. | + + + + + | Influenza, pneumonia | 10/17/2017 | + + + | Stenosis of coronary artery stent | 10/17/2017 | + + + | Ischemic cardiomyopathy | 05/26/2017 | + + + + + | Overview: S/P Medtronic BORING INSPECTOR-D 10-16-17 Dr Darby, [facility] Scan | | 10/13/17 shows [...] + + | Coronary artery disease involving [place] coronary artery of | 04/06/2017 | | [place] heart without angina pectoris | | + [...] + + + | Acute anterior wall NE | 04/03/2017 | + + + + [...] + + + + + | Overview: Overview: | | Last Assessment & Plan: | | With sleep-wake disturbance. | | -Frequent reorientation, maintenance of sleep-wake cycles | | -kellie westHS | + + + + + | Primary insomnia | 03/23/2017 | + + + + + | Overview: Overview: | | Last Assessment & Plan: | | More evident since extubation and sedation wean. 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 | + + Resolved Problems + + + + | Problem | Noted | Resolved | | | Date | Date | + + + + | Chronic systolic CHF (congestive heart failure) | 06/02/20 | | | | 19 | 0 | + + + + | Chronic kidney disease, stage III (moderate) | 03/10/20 | | | | 19 | 9 | + + + + | Fatigue | 09/17/19 | | | | 19 | 0 | + + + + + + | Overview: 48-HOUR HOLTER [...] symptoms. 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 | + + + + + + | Implantable defibrillator reprogramming/check | 10/19/19 | | | | 18 | 9 | + + + + | Prediabetes | 10/17/19 | | | | 18 | 0 | + + + + | Paroxysmal atrial flutter | 10/12/19 | | | | 18 | 8 | + + + + | Pulmonary edema | 10/03/19 | | | | 18 | 8 | + + + + | Generalized pain | 03/24/20 | | | | 17 | 0 | + + + + + + [...] 03/24 | + + + + + + | Coronary atherosclerosis | 03/15/20 | | | | 17 | 0 | + + + + | Family history of sudden | 06/18/20 | | | | 09 | 0 | + + + + | Family history of malignant neoplasm of gastrointestinal tract | 03/15/20 | | | | 09 | 0 | + + + + | Family history of stroke | 03/15/20 | | | | 09 | 0 | + + + + | Neck pain | 09/07/19 | | | | 09 | 9 | + + + + Encounters +--------+ + + + + | Date | Type | Specialty | Care Team | Description | +--------+ + + + + | 02/14/ | Orders Only | Nephrology | Tamia Burleson W, | Chronic kidney | | 2020 | | | MD | disease, stage IV | | | | | | (severe) (HCC) | | | | | | (Primary Dx); Anemia | | | | | | in chronic kidney | | | | | | disease, unspecified | | | | | | CKD stage | +--------+ + + + + | 12/12/ | Refill | Cardiology | Jenny, | Medication Refill | | 2020 | | | ADARSH Santo | | +--------+ + + + + | 12/08/ | Refill | Cardiology | Woodworth, | Medication Refill | | 2020 | | | ADARSH Santo | | +--------+ + + + + from Last 3 Months Immunizations + + + + | Name | Administration Dates | Next Due | + + + + | INFLUENZA PF 17 Y OR | 06/08/2019 | | | >,QUADRIVALENT | | | | RECOMBINANT | | | + + + + | INFLUENZA QUADR | 07/21/2018 | | | W/PRES | | | | (PED/ADOL/ADULT) | | | | MULTIDOSE | | | + + + + Family History + + +------+ + | Medical History | Relation | Name | Comments | + + +------+ + | Heart attack | Father | | | + + +------+ + | Cancer | Mother | | rectal | + + +------+ + | Kidney disease | Neg Hx | | | + + +------+ + + +------+ + + | Relation | Name | Status | Comments | + +------+ + + | Brother | | Alive | | + +------+ + + | Father | | | | | | | (Age | | [...] + + + | Blood Pressure | 109/66 | 10/28/2019 10:50 AM | | | | | PST | | + + + + + | Pulse | 66 | 10/28/2019 10:50 AM | | | | | PST | | + + + + + | Temperature | 36.7 C (98 F) | 03/08/2019 9:52 AM | | | | | PDT | | + + + + + | Respiratory Rate | 16 | 03/24/2019 1:26 PM | | | | | PDT | | + + + + + | Oxygen Saturation | 95% | 10/28/2019 10:50 AM | | | | | PST | | + + + + + | Inhaled Oxygen | - | - | | | Concentration | | | | + + + + + | Weight | 95.1 kg (209 lb 11.2 | 10/28/2019 10:50 AM | | | | oz) | PST | | + + + + + | Height | 175.3 cm (5' 9") | 10/28/2019 10:50 AM | | | | | PST | | + + + + + | Body Mass Index | 30.97 | 10/28/2019 10:50 AM | | | | | PST [...] [place] | | | | | | [address] | | | | | | | | +--------+ + + + + | 04/16/ | Office | Cardiology | Alin Anderson | | | 2019 | Visit | | MD Cheryl Arreguin | | | | | | [address] | | | | | | [place] [address] | | | | | | [phone] | | | | | | | [...] [place] | | | | | | [address] | | | | | | | | +--------+ + + + + + + + + + | Health Maintenance | Due Date | Last | Comments | | | | Done | | + + + + + [...] | + + + + + | Adult Annual | | | | | Wellness Visit | 5 | | | + + + + + | Lung Cancer | | 05/04/20 | | | Screening | 9 | 18 | | + + + + + | Vaccine: | | | | | Pneumococcal 65+ (1 | 0 | | | | of 1 - PPSV23) | | | | + + + + + | Vaccine: Influenza | Completed | 06/08/20 | | | | | 19, | | | | | 07/21/20 | | | | | 18 | | + + + + + [...] Generi | Left: | TERUMO LORIN | [id number] | 12/05/ | [id number] | | [id number]: Qty: 1 | c | Groin | - TERU | [id number] | 2018 | / | | on 05/19/2018 by [facility], | | | | 20 | | /[id number] | | Khurram Isabel MD at [facility] | | | | | | 371 | | [facility] | | | | | | | + +--------+--------+ +--------+--------+--------+ | Meter Supervisor-D MedtronicImplanted: | Implan | | MEDTRONIC - [...] N/A: | ISAACS | | 12/29/ | [id number] | | Eluting Coronary Stent System | | [place] | DIAGNOSTICS | | 2019 | 0-18 / | | Implanted: Qty: 1 on | | ry | - DAINA | | | | | 03/15/2017 by Monse Ross, | | | | | | /[id number] | | at [facility] | | | | | | 61 | | [facility] | | | | | | | + +--------+--------+ +--------+--------+--------+ | Xience Alpine Everolimus | Stent | N/A: | ISAACS | | 11/03/ | [id number] | | Eluting Coronary Stent System | | [place] | DIAGNOSTICS | | 2019 | 0-23 / | | Implanted: Qty: 1 on | | ry | - DAINA | | | | | 03/15/2017 by Monse Ross, | | | | | | /[id number] | | at [facility] | | | | | | 41 | | [facility] | | | | | | | + +--------+--------+ +--------+--------+--------+ | Kit Perclose Proglide 6fr - | | Right: | ISAACS | [id number] | | 13862- | | [id number]: Qty: 1 | | Groin | VASCULAR - | [id number] | | 03 / / | | on 05/19/2018 by The, | | | [facility] | 89 | | | | Khurram Isabel MD at [facility] | | | | | | | | [facility] | | | | | | | + +--------+--------+ +--------+--------+--------+ | Kit Perclose Proglide 6fr - | | Right: | ISAACS | [id number] | | 43998- | | [id number]: Qty: 1 | | Groin | VASCULAR - | [id number] | | 03 / / | | on 05/19/2018 by [facility], | | | [facility] | 89 | | | | Khurram Isabel MD at [facility] | | | | | | | | [facility] | | | | | | | + +--------+--------+ +--------+--------+--------+ Results Not on filefrom Last 3 [...] +--------+ +--------+ +---------+--------+ | [employer]MIN | [place] | [id number] | 09/07/19 | | | Indemn | | | COMMUN | | 19-Pre | | | ity | | | ITY | | sent | | | | | | CARE | | | | | | + +--------+ +--------+ +---------+--------+ | [employer] ADMIN | [place] | [id number] | 07/24/ | | | Indemn | | | NS | | 2016-P | | | ity | | | ADMIN | | resent | | | | | | [place] | | | | | | | | [place] | | | | | | + +--------+ +--------+ +---------+--------+ | [employer] ADMIN | [place] | [id number] | 07/24/ | | | Indemn | | | NS | | 2016-P | | | ity | | | ADMIN | | resent | | | | | | [place] | | | | | | | | E | | | | | | + +--------+ +--------+ +---------+--------+ | MEDICARE | MEDICA | [id number] | 10/08/19 | [phone] | | Medica | | | RE | | 20-Pre | 5 | | re | | | PART A | | sent | | | | | | AND B | | | | | | + [...] [address] | | | al/Fam | | 1956 | [phone] | [place] | | | [place] | | | 8 (Home) | [address] | + +--------+ +--------+ + + | Bob Will | Person | Self | [birth year] | [address] | | | al/Fam | | 1956 | [phone] | [place] | | | [place] | | | 8 ([place]) | [address] | + +--------+ +--------+ + + Advance Directives + + + + + | Type | Date Recorded | Patient | Explanation | | | | Company Laundry Worker | | + + + + + | Power of | | | | | Hog Tender | | | | + + + + + | Advance | 05/14/2018 1:35 | | | | Directive | PM | | | + + + + + + + + + + | Code Status | Date | Date | Comments | | | Activated | Inactivated | | + + + + + | Full Code | 05/19/2018 | 05/21/2018 | | | | 2:42 PM | 1:25 PM | | + + + + + + + + +---+ | | | | | + + + +---+ | Full Code | 10/03/2017 | 10/10/2017 | | | | 9:56 AM | 5:58 PM | | + + + +---+
--- OUTSIDE RECORDS SUMMARY | ~2020-03-04 | XMS | Encounter Summary ---
Demographics + + + | Address | [address] | | | [place] [address] | + + + | Home Phone [...] [place], [place] | | | | | [address] | | + + + + + Care Team Providers + +------+ + | Care Measurement Supervisor Name | Role | Phone | [...] | | | | | Ischemic | [place], | [address] | | | | | cardiomyopat | Hansa COMMUNICATIONS WRITER | [place], | | | | | hy | [address] | [place] | | | | | Procedures | [place] | [address] | | | | | ECHO | [place], | Phone: | | | | | Complete MD | [place] | [phone] | | | | | ECHO HEART | [address] | Fax: | | | | | [place] | Phone: | [phone] | | | | | [address] | [phone] | | | | | | DOPPLER MD | Fax: | | | | | | ECHO HEART | [phone] | | | | | | [place] [...] + + | 11/24/ | Hospital | [facility] | [place], | Ischemic | | 2018 | Encounter | [facility] ECHO [address] | ADARSH [address] | cardiomyopathy | | | | [place] | [place], | | | | | [place] [address] | [place] [address] | | | | | [phone] | [phone] | | | | | | | [...] 0 | | | | (VITAMIN D-3) 17707 | mouth Once a week. | | [...] [place] | | | | | | [address] | | | | | | | | +--------+ + + + + | 04/16/ | Office | Cardiology | Alin Anderson | | | 2019 | Visit | | MD [address] | | | | | | [address] | | | | | | [place] [address] | | | | | | [phone] | | | | | | | [...] [place] | | | | | | [address] | | | | | | | [...] Number J Patient Number | | | [id number] Date of Study 11/24/2017 Visit Number | | | [id number] Referring | | | Physician THERESE SY Number Date of 1955 | | | Curb Builder TUCKER DOVE Age | | | 62 year(s) Interpreting LAUREN CHESTER MD | | | Blueberry Grower Gender | | | Male Nurse | | | Stress Solutions Development Analyst Procedure Type of Study TTE | | [...] | | | Index: 43 mL/m^2 EF Hmchdlecc58% | | | Left Ventricle Diastolic Dimension: [...] | LA Vol/BSA Index: 43 mL/m^2 EF Nfczjanps53% | | | | | | Left [...] Room Number J Patient | | Number [id number] Date of Study 11/24/2017 Visit Number [id number] | | Referring Physician THERESE SY Number Date of | | 1955 [employer] TUCKER DOVE Age 62 | | year(s) Interpreting LAUREN CHESTER MD | | [employer] Gender Male 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 TechnicianProcedureType [...] Vol/BSA Index: 43 mL/m^2 EF | | Teiflihlg93% Left Ventricle Diastolic Dimension: 4.9 cm Septum [...] | LA Vol/BSA Index: 43 mL/m^2 EF Bgrqchluk58% | | | | Left Ventricle | [...]
--- OUTSIDE RECORDS SUMMARY | ~2020-03-04 | XMS | Encounter Summary ---
Demographics + + + | Address | [address] | | | [place] [address] | + + + | Home Phone [...] [place] | | | | | [address] | | + + + + + Care Team Providers + +------+ + | Care Shipping Packer Name | Role | Phone | + [...] | systolic CHF | CHRISTIE F | [place], [place] | | | | | (congestive | [place], [place] | [address] Phone: | | | | | heart | [phone] | | | | | | failure) [...] + + | 10/28/ | Office | [facility] EP | Alin Ayoub | Ischemic | | 2020 | Visit | [facility] [place] | MD [address] | cardiomyopathy | | | | [address] | [address] [place] | (Primary Dx); Status | | | | [place], [place] | [place] [address] | post internal | | | | [address] | [phone] | cardiac | | | | [phone] | | defibrillator | | | | | | procedure; Atrial | | | | | | flutter, unspecified | | | | | | type ([facility]); | | | | | | Thrombus of left | | | | | | atrial appendage; | | | | | | Ventricular | | | | | | tachycardia ([facility]); | | | | | | Sleep [...] encounter Progress Notes Alin Ayoub MD - 10/28/2019 11:00 AM PSTFormatting of this note might be dif ferent from the original. Subjective: Referring MD: Rocio Pearl MD Chief Complaint Patient presents with Follow-up HPI: This is a 63 y.o. male who presents today for follow-up of his biventricular pacemaker /ICD. Mr. Will was able to decrease amiodarone to 200 mg daily since his last visit. He had blood work performed recently. He continues to do his usual activity without any new limitations or symptoms. He denies any current chest pain, shortness of breath, dizziness, lightheadedness, palpitations, or recent syncope. Past Medical History: Diagnosis Date Acute anterior wall MA (HCC) 04/03/2017 Angiography and stent 03/15/2017 successful PCI with placement of 3.0X23 stent in the distal LM and ostial LAD reducing a 100% stenotic lesion to 0% residual stenosis, successful PCI w ith placement of 2.5X18 stent in the ostial LCx reducing a 90% stenotic lesion to 0% resdual stenosis. Anemia in stage 3 chronic kidney disease (HCC) 03/10/2019 Atrial flutter ([facility]) seen 09/24 as per chart - atypical [...] traumatic stress disorder 02/19/2012 Renal insufficiency cr 2.12 10/27 Status post internal cardiac defibrillator procedure S/p Medtronic Biv/ICD 10/25 Thrombus of left atrial appendage noted in cardiology notes - unclear history - possibly seen 03/23 at time of cardiogenic sh ock on ECMO Ventricular tachycardia (HCC) inducible on EP study 10/25 - amio Past Surgical History: Procedure Laterality Date ANGIOGRAM Bilateral 05/19/2018 Procedure: CV Vas LE Angio; Surgeon: Khurram Canas MD; Location: [facility] CV LAB ANGIOPLASTY Left 05/19/2018 Procedure: CV PTCA Only; Surgeon: Khurram Canas MD; Location: [facility] CV LAB CARDIAC CATHERIZATION N/A 10/03/2017 Procedure: CV Cor Angio; Surgeon: Delmer Dai MD; Location: [facility] CV LAB CARDIAC CATHERIZATION N/A 03/15/2017 Procedure: CV Cor Angio; Surgeon: Monse Ross MD; Location: [facility] CV LAB CARDIAC CATHERIZATION Left 05/19/2018 Procedure: CV RHC; Surgeon: Khurram Canas MD; Location: [facility] CV LAB CARDIAC CATHERIZATION Left 05/19/2018 Procedure: CV FFR/iFR; Surgeon: Khurram Canas MD; Location: [facility] CV LAB CARDIAC CATHERIZATION Left 05/19/2018 LM distal ISR, LAD ? stenosis, Cx 95-99% s/p PTCA, RCA LI ELBOW SURGERY Left GALLBLADDER SURGERY LEFT VENTRICULAR ASSIST DEVICE Right 05/19/2018 Procedure: CV PERC [facility] CIRC SUPPORT; Surgeon: Khurram Canas MD; Location: [facility] CV LAB NASAL SEPTUM SURGERY TONSILLECTOMY TRANSTHORACIC ECHOCARDIOGRAM 10/2018 EF 25-30%, anterior/anteroseptal/inferoseptal/inferior AK, mild TR, tr MR, mod LA dil, mil d RA dil, RVSP 26 UPPER GASTROINTESTINAL ENDOSCOPY N/A 10/05/2017 Procedure: EGD; Surgeon: Terry Weir MD; Location: [facility] Family History Problem [...] Last attempt to quit: 03/08/2017 Years since quittin.6 Smokeless tobacco: Former User Substance and Sexual Activity Alcohol use: No Drug use: No Social History Narrative Caffeine: 1 1/2 cups of coffee Exercise: walking 20 To 30 min Review of Systems: Ten system review negative unless noted in HPI. Current Outpatient Medications Medication Sig Dispense Refill acetaminophen (TYLENOL) 500 mg tablet Take 1,000 mg by mouth Daily as needed. aspirin 81 MG tablet Take 81 mg by mouth Daily. atorvaSTATin (LIPITOR) 80 MG tablet TAKE ONE TABLET BY MOUTH EVERY DAY IN THE EVENING 9 0 tablet 3 BISACODYL 5 mg EC tablet Take 5 mg by mouth Daily. carvedilol (COREG) 6.25 mg tablet Take 1 tablet by mouth 2 times daily (with breakfast & dinner). 180 tablet 3 Cholecalciferol (VITAMIN D-3) 30597 units CAPS Take 50,000 Units by mouth Once a week. clopidogrel (PLAVIX) 75 mg tablet Take 75 mg by mouth Daily. famotidine (PEPCID) 20 mg tablet Take 10 mg by mouth nightly. gabapentin (NEURONTIN) 100 mg capsule Take 100 [...] Twitching and numbness of arm Objective: Vitals: 10/28/19 1050 BP: 109/66 Pulse: 66 Weight: 95.1 kg (209 lb 11.2 oz) Height: 1.753 m (5' 9") Body mass index is 30.97 kg/m. Exam: General: Patient is alert, pleasant, [...] studies: ECG: Atrial sensed ventricular paced at 66 bpm with evidence of biventricular pacing, no si gnificant change from July 2019 Device Interrogation: His Medtronic biventricular pacemaker/ICD was interrogated and found to have stable sensing, pacing, and impedance values. No mode switch or ventricular episode s were noted since last interrogation. He paces less than 1% of the time in the atrium with greater than 99% ventricular pacing. Impression/Plan: Bob was seen today for follow-up. Diagnoses and all orders for this visit: Ischemic cardiomyopathy - Cancel: ECG 12 lead - ECG 12 lead - Comprehensive Metabolic Panel; Future - TSH, Reflex Free T4; Future - carvedilol (COREG) 6.25 mg tablet; Take 1 tablet by mouth 2 times daily (with breakfa st & dinner). Status post internal cardiac defibrillator procedure Atrial flutter, unspecified type (HCC) - TSH, Reflex Free T4; Future Thrombus of left atrial appendage Ventricular tachycardia (HCC) Sleep apnea, unspecified type 1) Ischemic cardiomyopathy - Mr. Will has a history of coronary artery disease with mu ltiple percutaneous interventions in the past more recently due to in-stent restenosis of th e left main stent. His last cardiac catheterization was in 2017 and PTCA to the circumflex was performed at that time. An echocardiogram performed in October 2018 demonstrated an ej ection fraction of 25 to 30% with anterior and inferior wall motion abnormalities. He sachi nues to follow with cardiology. 2) S/p biventricular pacemaker/ICD - He had a biventricular pacemaker/ICD implanted in 2017 in [place] by his account. His device was interrogated today and found to be fun ctioning normally in all respects. 3) Atrial flutter - An episode of [...] for any atrial dysrhythmias through his device. 4) JAVON thrombus - A history of left atrial appendage thrombus was noted in 2016 around the time of his cardiogenic shock [...] biventricular pacemaker/ICD was then implante d. He had been on amiodarone 400 mg daily for several years by his account and he is not ce rtain as to why the medication was started. He denies any previous ICD shocks. Amiodarone was then decreased to 200 mg daily and no dysrhythmias have been noted on device interrogati on. Given mildly elevated TSH and liver function tests I have recommended he stop amiodaron e. He will increase carvedilol to 6.25 mg twice a day. Blood work was ordered as above. 6) [...] Office | Nephrology | Litzy, | | 2019 | Visit | | [address] | | | | | | [address] | | | | | | [address] | | | | | | [address] | | | | | | | | +--------+ + + + + | 04/16/ | Office | Cardiology | Alin Ayoub | 2019 | Visit | | MD [address] | | | | | | [address] | | | | | | [place] [address] | | | | | | [phone] | | | | | | | | +--------+ + + + + | 04/16/ | Procedure | Cardiology | | | | 2019 | visit | | | | +--------+ + + + + | 04/25/ | Office | Cardiology | Rocio Pearl, | | | 2019 | Visit | | MD [address] | | | | | | [place] [facility] | | | | | | [address] | | | | | | | | +--------+ + + + + + +------+--------+ + + | Name | Type | Priori | Associated Diagnoses | Order Schedule | | | | ty | | | + +------+--------+ + + | Comprehensive | Lab | Routin | Ischemic | 1 Occurrences | | Metabolic Panel | | e | cardiomyopathy | starting 10/28/2019 | | | | | | until 10/28/2020 | + +------+--------+ + + | TSH, Reflex Free T4 | Lab | Routin | Ischemic | 1 Occurrences | | | | e | cardiomyopathy | starting 10/28/2019 | | | | | Atrial flutter, | until 10/28/2020 | | | | | unspecified type | | | | | | (HCC) | | + +------+--------+ + + documented as of this encounter Procedures + +--------+ + + + | Procedure Name | Priori | Date/Time | Associated Diagnosis | Comments | | | ty | | | | + +--------+ + + + | ECG 12 LEAD | Routin | 10/28/2019 | Ischemic | Results for this | | | e | 10:50 AM | cardiomyopathy | procedure are in the | | | | PST | | results section. | + +--------+ + + + documented in this encounter Results ECG 12 lead (10/28/2019 10:50 AM PST) + + + + + [...] + + + + | P-R | 150 | ms | [facility] | | | INTERVAL | | | | | + + + + + + | QRS | 182 | ms | [facility] | | | DURATION | | | | | + + + + + + | Q-T | 564 | ms | [facility] | | | INTERVAL | | | | | + + + + + + | Q-T | 591 | ms | [facility] | | | INTERVAL | | | | | | (CORRECTED) | | | | | + + + + + + | P WAVE AXIS | 65 | degrees | [facility] | | + + + + + + | QRS AXIS | -102 | degrees | [facility] | | + + + + + + | T AXIS | 85 | degrees | [facility] | | + + + + + + | INTERPRETAT | Please refer to | | [facility] | | | ION TEXT | Providers office visit | | | | | | note for Providers | | | | | | Interpretation.Confirmed | | | | | | by ALIN AYOUB MD | | | | | | ([id number]) on 10/28/2019 | | | | | | 11:56:38 AM | | | | + + [...]
--- OUTSIDE RECORDS SUMMARY | ~2020-03-04 | XMS | Encounter Summary ---
Demographics + + + | Address | [address] | | | [place] [address] | + + + | Home Phone [...] + | [place] Mckeon | ECON | [place], [place] | | | | | [address] | | + + + + + Care Team Providers + +------+ + | Care Motor Runner Name | Role | Phone | + +------+ + PCP | Unavailable | + +------+ + Encounter Details +--------+ + + + + | Date | Type | Department | Care Team | Description | +--------+ + + + + | 05/01/ | Hospital | [facility] | Sheron Sherman MD | Acute pulmonary | | 2018 - | Encounter | [facility] | [address] | edema ([facility]); Chest | | | | CARE [address]LO[address] | [place] [address] | pain, unspecified | | 05/13/ | | [address] | [phone] | type; NSTEMI (non-ST | | 2018 | | [place], [place] | | elevated myocardial | | | | [address] | | infarction) ([facility]); | | | | [phone] | | Diagnosis unknown | +--------+ + + + + Social [...] | Blood Pressure | 105/64 | 05/13/2018 1:34 PM | | | | | PDT | | + + + + + | Pulse | 67 | 05/13/2018 1:34 PM | | | | | PDT | | + + + + + | Temperature | 36.6 C (97.8 F) | 05/13/2018 1:34 PM | | | | | PDT | | + + + + + | Respiratory Rate | 18 | 05/13/2018 1:34 PM | | | | | PDT | | + + + + + | Oxygen Saturation | - | - | | + + + + + | Inhaled Oxygen | - | - | | | Concentration | | | | + + + + + | Weight | 96.9 kg (213 lb 10.1 | 05/13/2018 1:34 PM | | | | oz) | PDT | | + + + + + | Height | 175.3 cm (5' 9") | 05/13/2018 1:34 PM | | | | | PDT | | + + + + + | Body Mass Index | 31.55 | 05/13/2018 1:34 PM | | | | | PDT | | + + + + + documented in this encounter Discharge Summaries Macho Carbajal MD - 05/13/2018 11:57 AM PDT Discharge Summaries by Macho Carbajal DO at 05/13/18 7930 Author: Macho Carbajal DO Service: Hospitalist Author Type: Physician Filed: 05/13/18 1404 Date of Service: 05/13/18 1156 Status: Signed Acid Cutter: Macho Carbajal DO (Physician) [facility] Service: Hospitalist Discharge Summary Date of Admission: 05/01/2018 Date of Discharge: 05/13/2018 Discharge Physician: Macho Carbajal DO Treatment Team: Consulting Physician: Deisy Hansen MD Consulting Physician: Mario Alberto Brito MD Consulting Physician: Isael Thakkar MD Admitting Provider: Sheron Sherman MD Discharge Diagnoses: Principal Problem: CAD (coronary artery disease) Active Problems: COPD (chronic obstructive pulmonary disease) (HCC) Hyperlipidemia Dyspnea Chronic systolic CHF (congestive heart failure) (HCC) Acute renal failure superimposed on stage 3 chronic kidney disease (HCC) Resolved Problems: * No resolved hospital problems. * Procedures: Procedure(s): CABG - MARKY BRIEF HISTORY OF PRESENTATION: Ron Mckeon is a 62 y.o. male with a past medical history of COPD, former smoker, quite in 03/2017, hypertension, hyperlipidemia, chronic neck pain, suspected sleep apnea bu t had his initial workup done about a month ago and with repeat testing due in the near futu re, history of ischemic cardiomyopathy with his last echocardiogram done on 04/02/2018 which showed mild biatrial dilatation, mild left ventricular dilatation with severe hypokinesis o f the anterior anteroseptal region with left ventricular systolic function of 30-35 percent and grade 1 diastolic dysfunction, mild mitral valve regurgitation, status post bi-v CD, chr onic kidney disease stage 3 with a baseline creatinine of 1.3. Patient also has a history o f significant coronary artery disease and was transferred from [place] to [facility] when he w as found to have STEMI in 03/2017 with thrombosed left main artery treated with PCI of the l eft main into the LAD and subsequent PCI of left circumflex. His hospital course at that ti id was complicated by acute cardiogenic shock status post ECMO. Left atrial clot, previousl y on coumadin. He was again admitted at [facility] in 10/2017 when he was admitted for pneumonia and unstable angina and underwent drug-eluting stent to ostial left circumflex and angioplas ty of the distal left main with balloon inflation extending into the left anterior descendin g. Patient had been doing well up until yesterday when he developed shortness of breath. Darshan reyes reports that his shortness of breath got worse when he was sleeping in the middle of the n ight and woke up a couple of times due to the shortness of breath. This was mildly relieved with sitting up but continued to persist even when he was ambulating and hence he decided t o go to the emergency department in [place]. He has chronic neck pain but this flared up with this episode but he denied any chest pain. He denied any dizziness but had some nausea but no diaphoresis. He had been wheezing. He does complain of snoring at night and apneic episodes during the night. He reports he has gained about 8-10 pounds in the last 1 month but denies any lower extremity edema. No abdominal pain, diarrhea, constipation, or any uri nary symptoms. He denies any fevers, chills, runny nose, or nasal congestion. He reports darshan reyes has been drinking about 2 cans of soda every day but usually drinks about 2 liters of flui ds total and with limited salt intake. He has been compliant with his medications. He jacqui ed any palpitations or firing of his defibrillator and this was checked about a month ago an d was normal per patient. The patient follows up with Dr. Figueroa at [place]. The patient was transferred from [place] to the main [facility] emergency department. I do n ot have the records from [facility]; however, while he was at [facility] his vitals were stable. Labs showed a troponin of 0.613 with EKG showing V paced, creatinine was elevated at 1.8. White count was normal. BNP was elevated at 412. Repeat troponin was 0.678. Ches t x-ray showed left mid lung plate-like atelectasis, otherwise lungs are clear. The patient received DuoNeb and Lasix at [place] with relief of his symptoms and he reports that he i s closer to his baseline. HOSPITAL COURSE: Patient was admitted and treated for: Coronary artery disease - Cardiology consulted with cardiac angiography on 05/03, restenosis distal left main, left anterior descending and left circumflex - Appreciate input from cardiology. - Appreciate input from cardiothoracic surgery; previous hospitalist discussed with Dr. Hoang maravilla, because the patient had cardiogenic shock that required ECMO in 2017, it was recommend ed that the patient be transferred over to [facility] since the technology is not available in thi s facility; on-call cardiology at [facility], he did not see the need for inpatient toinpatient transfer at this time. Patient can follow-up as an outpatient and maybe do elective CABG if needed. - Apparently, in 10/2017 and the patient had stenting of the in-stent restenosis of the LAD, there was a viability study with unfavorable result. CABG was not an option during that brenda e. - Repeat viability studydone revealed hibernating myocardium suspected in the right coron maciej territory involving the inferior wall in the inferior portion of the septal wall. Awaiti ng further recommendations from both cardiothoracic surgery and cardiology. - Off Plavix - Onheparin drip - Episodic V. tach now improved with amiodarone thought to be secondary to ischemia Acute on chronic systolic congestive heart failure - Was on Lasix, required multiple doses again (05/11) due to increased pulmonary edema - Continue sodium restriction - Echo 05/01: EF 25% - Resumed on PO lasix COPD (chronic obstructive pulmonary disease) - Stable - Not in acute exacerbation Benign essential hypertension - Stable - On reduced Sacubitril/Valsartan - Continue Toprol 25 mg daily Hyperlipidemia - Continue Lipitor Acute renal failure superimposed on stage 3 chronic kidney disease (HCC) - Improved - Continue reduced dose of entresto . - OffLasix - Nephrology consulted, once any surgical intervention is determined, recommended to stop t he entrestoone day prior to this procedure Type II diabetes - Stable - Continue low range Humalog correctional sliding scale. - Holding homemetformin At time of transfer, patient felt well, with stable vital signs. Past Medical History Diagnosis Date Arthritis Chronic obstructive pulmonary disease (HCC) Congestive heart failure (HCC) Hyperlipidemia Hypertension Old myocardial infarction 2017 Past Surgical History Procedure Laterality Date CARDIAC CATHETERIZATION stent placed CHOLECYSTECTOMY echmo 2017 NASAL SEPTUM SURGERY PACEMAKER INSERTION defibrilater No Known Allergies Prescriptions Prior to Admission Medication Sig Dispense Refill Last Dose acetaminophen (TYLENOL) 500 MG tablet Take 1,000 mg by mouth every 6 (six) hours as nee ded for Pain. Taking at Unknown time aspirin 81 MG tablet Take 81 mg by mouth daily. Taking at Unknown time atorvastatin (LIPITOR) 80 MG tablet Take 80 mg by mouth nightly. Taking at Unknown ti me gabapentin (NEURONTIN) 300 MG capsule Take 300 mg by mouth 3 (three) times daily. Jose ing at Unknown time HYDROcodone-acetaminophen (NORCO) 10-325 MG per tablet Take 1 tablet by mouth every 6 ( six) hours as needed for Pain. Taking Different at furosefur melatonin 3 MG TABS Take 3 mg by mouth nightly. Taking at Unknown time Multiple Vitamins-Minerals (MULTIVITAMIN WITH MINERALS) tablet Take 1 tablet by mouth d aily. Taking at Unknown time nitroGLYCERIN (NITROSTAT) 0.[address] 0.4 mg under the tongue every 5 (five) minutes as needed for Chest pain. Taking at Unknown time pantoprazole (PROTONIX) 40 MG tablet Take 40 mg by mouth 2 (two) times daily. Taking at Unknown time traMADol (ULTRAM) 50 MG tablet Take 50 mg by mouth every 6 (six) hours as needed for Pa in. Taking at Unknown time HYDROcodone-acetaminophen (NORCO) 5-325 MG per tablet DISCHARGE EXAM Vital Signs: BP 102/55 (BP Location: Right upper arm) | Pulse 67 | Temp 97.8 F (36.6 C) (Oral) | Resp 18 | Ht 1.753 m (5' 9") | Wt 96.9 kg (213 lb 10 oz) | SpO2 94% | BMI 31.55 kg/m Temp: [97.5 F (36.4 C)-97.9 F (36.6 C)] 97.8 F (36.6 C) (05/13 1113) BP: (79-137)/(49-70) 102/55 (05/13 1113) Heart Rate: [66-80] 67 (05/13 1113) Resp: [16-18] 18 (05/13 1113) SpO2: [92 %-97 %] 94 % (05/13 1113) Physical Exam Constitutional: He is oriented to person, place, and time. He appears well-developed and we ll-nourished. HENT: Head: Normocephalic and atraumatic. Eyes: Pupils are equal, round, and reactive to light. Conjunctivae are normal. Neck: Normal range of motion. Neck supple. Cardiovascular: Normal rate and regular rhythm. Pulmonary/Chest: Effort normal and breath sounds normal. No respiratory distress. He has no wheezes. He has no rales. Abdominal: Soft. Bowel sounds are normal. He exhibits no distension. There is no tenderness . Musculoskeletal: Normal range of motion. He exhibits no edema, tenderness or deformity. Neurological: He is alert and oriented to person, place, and time. Skin: Skin is warm and dry. Psychiatric: He has a normal mood and affect. His behavior is normal. DATA CBC: Lab Results Component Value Date WBC 6.76 05/13/2018 RBC 4.06 (L) 05/13/2018 HGB 12.5 (L) 05/13/2018 HCT 37.4 (L) 05/13/2018 MCV 91.9 05/13/2018 MCH 30.8 05/13/2018 MCHC 33.5 05/13/2018 RDW 47.3 05/13/2018 PLT 150 05/13/2018 MPV 9.4 05/13/2018 DIFFTYPE AUTOMATED 05/13/2018 CMP: Lab Results Component Value Date NA 138 05/13/2018 K 4.2 05/13/2018 CL 102 05/13/2018 CO2 25 05/13/2018 ANIONGAP 15 05/13/2018 GLUF 134 (H) 05/13/2018 BUN 24 05/13/2018 CREATININE 1.8 (H) 05/13/2018 BCR 13 05/13/2018 CA 8.4 (L) 05/13/2018 PROT 6.5 05/13/2018 ALB 3.3 05/13/2018 GLOB 3.2 05/13/2018 BILITOT 0.3 05/13/2018 ALP 76 05/13/2018 AST 19 05/13/2018 ALT 46 05/13/2018 EGFR 38 (L) 05/13/[address] [facility]. Disposition: Home Condition: Stable Code Status: Full Code No discharge procedures on file. Follow up: Chato Matson MD [address] [place] [id number] Medication List START taking these medications amiodarone 400 MG tablet QTY: 30 tablet Refills: 0 Commonly known as: PACERONE Take 1 tablet by mouth daily. metoprolol 25 MG 24 hr tablet QTY: 30 tablet Refills: 0 Commonly known as: TOPROL-XL Take 1 tablet by mouth daily. Replaces: Metoprolol Succinate 25 MG Cs24 sacubitril-valsartan 24-26 MG per tablet QTY: 60 tablet Refills: 0 Commonly known as: ENTRESTO Take 1 tablet by mouth 2 (two) times daily. Replaces: sacubitril-valsartan 49-51 MG per tablet CHANGE how you take these medications furosemide 40 MG tablet QTY: 30 tablet Refills: 11 Commonly known as: LASIX Take 1 tablet by mouth daily. What changed: medication strength how much to take CONTINUE taking these medications acetaminophen 500 MG tablet Refills: 0 Commonly known as: TYLENOL aspirin 81 MG tablet Refills: 0 atorvastatin 80 MG tablet Refills: 0 Commonly known as: LIPITOR gabapentin 300 MG capsule Refills: 0 Commonly known as: NEURONTIN * HYDROcodone-acetaminophen 5-325 MG per tablet Refills: 0 Commonly known as: NORCO * HYDROcodone-acetaminophen 10-325 MG per tablet Refills: 0 Commonly known as: NORCO melatonin 3 MG Tabs Refills: 0 multivitamin with minerals tablet Refills: 0 nitroGLYCERIN 0.4 MG SL tablet Refills: 0 Commonly known as: NITROSTAT pantoprazole 40 MG tablet Refills: 0 Commonly known as: PROTONIX traMADol 50 MG tablet Refills: 0 Commonly known as: ULTRAM * This list has 2 medication(s) that are the same as other medications prescribed for you. Read the directions carefully, and ask your doctor or other care provider to review them wit h you. You might also be taking other medications not listed above. If you have questions about an y of your other medications, talk to the person who prescribed them or your Primary Care Pro vider. STOP taking these medications clopidogrel 75 MG tablet Commonly known as: PLAVIX lisinopril 10 MG tablet Commonly known as: ZESTRIL metFORMIN 500 MG tablet Commonly known as: GLUCOPHAGE Metoprolol Succinate 25 MG Cs24 Replaced by: metoprolol 25 MG 24 hr tablet ranitidine 300 MG tablet Commonly known as: ZANTAC sacubitril-valsartan 49-51 MG per tablet Commonly known as: ENTRESTO Replaced by: sacubitril-valsartan 24-26 MG per tablet Where to Get Your Medications You can get these medications from any pharmacy Bring a paper prescription for each of these medications amiodarone 400 MG tablet furosemide 40 MG tablet metoprolol 25 MG 24 hr tablet sacubitril-valsartan 24-26 MG per tablet Discharge took 45 minutes, to include final examination, discussion of admission, and prepa ration of prescriptions, instructions for on-going care, follow-up and documentation of disc harge summary. Macho Carbajal DO 05/13/2018 11:57 AM documented in this encoun ter Medications at Time of Discharge + + [...] 0 | | | | (VITAMIN D-3) [address] | mouth Once a week. | | [...] + +---------+ + + | metoprolol | TAKE ONE TABLET BY | 90 | 3 | 02/26/20 | | | succinate | MOUTH EVERY DAY | tablet | | 18 | 8 [...] + +---------+ + + | pantoprazole | TAKE ONE TABLET BY | 60 | 5 | 04/28/20 | | | (PROTONIX) 40 mg | MOUTH TWICE A DAY | tablet | | 18 | 8 | | tablet | BEFORE MEALS. | | | | | + + [...] documented as of this encounter Progress Notes Conversion Transaction, Provider Unknown - 05/13/2018 1:52 PM PDTFormatting of this note m ight be different from the original. Nurse Progress Note by Heidi Berkowitz RN at 05/13/18 1352 Author: Heidi Berkowitz RN Service: (none) Author Type: Registered Nurse Filed: 05/13/18 1358 Date of Service: 05/13/18 1352 Status: Signed Acid Cutter: Heidi Berkowitz RN (Registered Nurse) 1350 Patient transported to [place] via [facility], transport chart with patient, all VSS, pa tient left with 2 PIV and Heparin gtt. All belongings sent with patient. of patient called and notified of transport, provided with address, and telephone numb er of hospital. Heidi Berkowitz RN onver neema Transaction, Provider Unknown - 05/13/2018 12:14 PM PDT Nurse Progress Note by Heidi Berkowitz RN at 05/13/18 1214 Author: Heidi Berkowitz RN Service: (none) Author Type: Registered Nurse Filed: 05/13/18 1214 Date of Service: 05/13/18 1214 Status: Signed Acid Cutter: Heidi Berkowitz RN (Registered Nurse) 1214 Report called to ALFONSO Mckeon at [facility]. Heidi Berkowitz RN yson Valles Chaplain - 05/13/2018 11:23 AM PDT Progress Notes by Tyson Major at 05/13/18 1123 Author: Tyson Major Service: (none) Author Type: Filed: 05/13/18 1127 Date of Service: 05/13/18 1123 Status: Signed Acid Cutter: Tyson Major () I visited with ron tanner to LOS. He shared he will be transferring to [facility] for heart surgery. oRn states he is ready to have his surgery done so he can resume h is daily activities. He report he has family support and is coping well. onversion Bergman saction, Provider Unknown - 05/13/2018 11:06 AM PDTFormatting of this note might be differen t from the original. Case Management by Mabel Bennett RN at 05/13/18 1106 Author: Mabel Bennett RN Service: (none) Author Type: Registered Nurse Filed: 05/13/18 1259 Date of Service: 05/13/18 1106 Status: Addendum Acid Cutter: Mabel Bennett RN (Registered Nurse) Related Notes: Original Note by Mabel Bennett RN (Registered Nurse) filed at 05/13/18 110 6 Pt will be transferred to [facility]. Carlee onver neema Transaction, Provider Unknown - 05/12/2018 8:44 PM PDT Nurse Progress Note by Monique Monreal RN at 05/12/182043 Author: Monique Monreal RN Service: (none) Author Type: Registered Nurse Filed: 05/13/18 0710 Date of Service: 05/12/182043 Status: Addendum Acid Cutter: Monique Monreal RN (Registered Nurse) Related Notes: Original Note by Monique Monreal RN (Registered Nurse) filed at 05/13/18 06 26 2000: Pt's aPTT sub therapeutic at 45, per protocol, heparin gtt increased by 2 units/kg to 18.58 units/kg/hr. Next aPTT draw at 0245 on 05/13. 0400: Pt's aPTT supra therapeutic at 67, per protocol heparin gtt decreased by 2 units/kg t o 16.58 units/kg/hr. Next aPTT draw at 1000. 24 hr chart check complete. Monique Monreal RN onver neema Transaction, Provider Unknown - 05/12/2018 6:34 PM PDT Nurse Progress Note by Heather Gonzales RN at 05/12/18 1834 Author: Heather Gonzales RN Service: (none) Author Type: Registered Nurse Filed: 05/12/181835 Date of Service: 05/12/181833 Status: Signed Acid Cutter: Heather Gonzales RN (Registered Nurse) Patient started on 2 gm sodium/1.5L fluid restriction per Dr. Triplett. Patient states unders tanding of sodium and fluid restrictions. VSS throughout shift. End of shift chart check com plete. HEATHER GONZALES RN Myra Reed MD - 05/12/2018 6:10 PM PDTFormatting of this note might be different from the or iginal. Progress Notes by Myra Triplett MD at 05/12/181809 Author: Myra Triplett MD Service: Nephrology Author Type: Physician Filed: 05/12/181818 Date of Service: 05/12/181809 Status: Signed Acid Cutter: Myra Triplett MD (Physician) PCP : Chato Matson LOS: 11 days Ron Mckeon is a 62 y.o. man followed for acute on chronic renal failure. 05/09/18 05/12/18 ON events noted. He went into pulmonary edema last night (? Flash pulmonary edema) and rece ived IV lasix * 2 (40+60) with relief. EKG wasn't done. CXR (seen by myself) showed pulmon maciej edema. He indicated he was not complaint with fluid restriction last few days. He denied any chest pain. He feels 'OK' today and has no fever, chills sweats, nausea, vomiting or diarrhea, shortne ss of breath, chest pain, cough. [facility] is [facility]. ROS: As in History of Present Illness. 7 area ROS was done and was otherwise negative. Examination: Vitals: As noted General appearance: NAD, conversant Neck: FROM, supple. No JVD. Lungs: Reduced AE at bases. Effort fair. CV: RRR, no MRGs; normal carotid upstroke and amplitude without bruits. Tele with SR. Abdomen: Soft, non-tender; no masses or HSM Extremities: Minimal peripheral edema. Skin: No rash, lesions or ulcers Psych: Pleasant demeanor Neurologic: Alert and oriented to person, place and time. Gait normal.. Speech clear. The following portions of the patient's history were reviewed and updated as appropriate: l aboratory data, radiologic studies, allergies, current medications, and problem list. Past m edical, surgical, social, and family history was also reviewed as appropriate. Past history summarized as above. Vital Signs: BP 137/70 (BP Location: Left forearm) | Pulse 72 | Temp 97.5 F (36.4 C) (Oral) | Res p 16 | Ht 1.753 m (5' 9") | Wt 96.9 kg (213 lb 10 oz) | SpO2 94% | BMI 31.55 kg/m Intake/Output Summary (Last 24 hours) at 05/12/18 1810 Last data filed at 05/12/18 1800 Gross per 24 hour Intake 1241 ml Output 2920 ml Net -1679 ml Data evaluation: Lab Results Component Value Date BUN 21 05/12/2018 CREATININE 1.9 (H) 05/12/2018 EGFR 36 (L) 05/12/2018 NA 139 05/12/2018 K 4.5 05/12/2018 CL 103 05/12/2018 CO2 26 05/12/2018 CA 8.6 05/12/2018 PHOS 4.2 05/11/2018 MG 2.4 05/12/2018 ALB 3.5 05/12/2018 HGB 13.8 05/12/2018 Component Value Date/Time CREATININE 1.9 (H) 05/12/2018 0435 CREATININE 1.7 (H) 05/11/2018 0514 CREATININE 1.9 (H) 05/10/2018 0645 CREATININE 1.8 (H) 05/09/2018 0545 CREATININE 1.7 (H) 05/08/2018 0227 CREATININE 1.6 (H) 05/06/2018 0449 CREATININE 1.5 (H) 05/04/2018 0359 CREATININE 1.4 (H) 05/03/2018 0512 CREATININE 1.6 (H) 05/02/2018 0437 CREATININE 1.8 (H) 05/01/2018 0815 EGFR 36 (L) 05/12/2018 0435 EGFR 41 (L) 05/11/2018 0514 EGFR 36 (L) 05/10/2018 0645 EGFR 38 (L) 05/09/2018 0545 EGFR 41 (L) 05/08/2018 0227 EGFR 44 (L) 05/06/2018 0449 EGFR 47 (L) 05/04/2018 0359 EGFR 51 (L) 05/03/2018 0512 EGFR 44 (L) 05/02/2018 0437 EGFR 38 (L) 05/01/2018 0815 Component Value Date/Time BUN 21 05/12/2018 0435 BUN 18 05/11/2018 0514 BUN 21 05/10/2018 0645 BUN 20 05/09/2018 0545 BUN 23 05/08/2018 0227 BUN 25 05/06/2018 0449 BUN 27 (H) 05/04/2018 0359 BUN 29 (H) 05/03/2018 0512 BUN 29 (H) 05/02/2018 0437 BUN 27 (H) 05/01/2018 0815 Lab Results Component Value Date HGB 13.8 05/12/2018 HGB 13.7 05/11/2018 HGB 14.7 05/06/2018 Lab Results Component Value Date K 4.5 05/12/2018 K 4.5 05/11/2018 K 4.7 05/10/2018 . Lab Results Component Value Date NA 139 05/12/2018 NA 141 05/11/2018 NA 138 05/10/2018 Lab Results Component Value Date ALB 3.5 05/12/2018 ALB 3.5 05/11/2018 ALB 3.8 05/10/2018 Lab Results Component Value Date CA 8.6 05/12/2018 CA 8.7 05/11/2018 CA 8.9 05/10/2018 Lab Results Component Value Date PHOS 4.2 05/11/2018 PHOS 4.2 05/10/2018 PHOS 4.2 05/09/2018 Lab Results Component Value Date MG 2.4 05/12/2018 MG 2.4 05/04/2018 MG 2.5 (H) 05/02/2018 Lab Results Component Value Date CO2 26 05/12/2018 CO2 25 05/11/2018 CO2 25 05/10/2018 Lab Results Component Value Date ANIONGAP 15 05/12/2018 EKG 05/01/18 showed Normal sinus rhythm, Non-specific intra-ventricular conduction block, La teral infarct Ct Chest Without Contrast 05/04/2018 showed 1. No pulmonary edema, infiltrates, or effusions. 2. Centrilobular emphysematous change of the right greater than left upper to midlung zone , with previous granulomatous disease. 3. Minimal focal ectasia of the lateral aortic arch, with mild atheromatous changes of the aorta and coronaries, again with coronary arterial stents [facility] Kidneys And Bladder 05/04/2018 showed no shadowing renal stones or hydronephrosis. 2. Po stvoid bladder residual of 14 mL. Echo 05/03/2018 showed 1. EF between 25 - 30 %. Nm Thallium - Hibernating Myocardium 05/09/2018 1. Hibernating myocardium suspected in the right coronary territory involving the inferior wall and the inferior portion of the septal wall. 2. There was no significant redistribution seen in the anterior wall or anterior portion o f the septum on the 4 hour or 24-hour images suggesting this was completely infarcted and wo uld not benefit from reperfusion therapy in the LAD territory. 3. Normal perfusion seen in the left circumflex coronary artery territory involving the la teral wall of the left ventricle. X-ray Chest 1 View 05/11/2018 showed interval development of bilateral perihilar infiltrate Assessment and Recommendations: 1. Acute on chronic renal failure 2. Chronic systolic CHF 3. Flash pulmonary edema 4. CAD 5. Unstable angina 6. Essential hypertension His baseline creatinine is 1.3-1.5 and he he had recurrent superimposed AYLIN with overdiures is and relative hypotension. Creatinine is now at a higher baseline. He went into flash pulmonary edema after holding loop diuretic and is likely to need a main tenance dose even his GFR is lower than baseline. He is hemodynamically stable with no fever/tachycardia/bradycardia/hypotension or severe hy pertension/hypoxia at rest now I would recommend resuming diuretic for now (he will need in the future as part of his r egime given severe systolic CHF). Continue Sacubitril/Valsartan in reduced dose (to be held prior to anticipated CABG). Diet 2 gm Na diet Dose all meds for an eGFR of less than 30 ml/min/1.73 m2. No use of NSAIDs (including MARIA 2 inhibitors). No use of Magnesium or aluminum containing antacids. No use of Magnesium or phosphorus containing laxatives Strict I/O Daily weights. Daily BMP (including Ca, PO4, Mg) MYRA TRIPLETT MD 05/12/2018 Plan of care was discussed with Dr. Carbajal He was seen earlier in the day and charting was completed later after rounds. Dictation software, AudienceView, was used which may contain error for similar sounding words pantera n after review. Personal communication is requested for any clarification. Prognosis is guarded in view of multiple comorbid illnesses and acute on chronic renal fail ure including but not limited to potential need for CARE TRANSITION COORDINATOR amiodarone 400 mg Oral Daily aspirin 81 mg Oral Daily with breakfast atorvastatin 80 mg Oral Nightly famotidine 20 mg Oral BID gabapentin 300 mg Oral TID insulin lispro (human) 0-3 Units Subcutaneous Nightly insulin lispro (human) 0-6 Units Subcutaneous TID AC levalbuterol 0.63 mg Nebulization 4x daily melatonin 3 mg Oral Nightly metoprolol 25 mg Oral Daily multivitamin with minerals 1 tablet Oral Daily pantoprazole 40 mg Oral BID sacubitril-valsartan 1 tablet Oral BID sodium chloride 10 mL Intravenous Q8H dextrose heparin 50 units/mL 16.58 Units/kg/hr (05/12/18 1601) onversion Transactio n, Provider Unknown - 05/12/2018 4:00 PM PDT Nurse Progress Note by Heather Gonzales RN at 05/12/18 1600 Author: Heather Gonzales RN Service: (none) Author Type: Registered Nurse Filed: 05/12/18 1700 Date of Service: 05/12/18 1600 Status: Signed Acid Cutter: Heather Gonzales RN (Registered Nurse) Report received from Rehana HAMILTON in SBAR format. All questions addressed. HEATHER GONZALES RN onver neema Transaction, Provider Unknown - 05/12/2018 3:30 PM PDT Nurse Progress Note by Heidi Berkowitz RN at 05/12/18 1530 Author: Heidi Berkowitz RN Service: (none) Author Type: Registered Nurse Filed: 05/12/18 1531 Date of Service: 05/12/18 1530 Status: Signed Acid Cutter: Heidi Berkowitz RN (Registered Nurse) 1500 Patient tolerating RA a this time, lungs are CTA and patient is managing his fluid int aman. May occasionally needs 2L Oxymask when asleep. Heidi Berkowitz RN Mahco Horowitz MD - 05/12/2018 12:33 PM PDTFormatting of this note might be different from the origin al. Progress Notes by Macho Carbajal DO at 05/12/18 1233 Author: Macho Carbajal DO Service: Hospitalist Author Type: Physician Filed: 05/12/18 1235 Date of Service: 05/12/18 1233 Status: Signed Acid Cutter: Macho Carbajal DO (Physician) [facility] Service: Hospitalist Progress Note Pt: Ron Mckeon AGE/SEX: 62 y.o. male ROOM: [facility] PCP: Chato Matson : 1955 TODAY'S DATE: 05/12/2018 Hospital Day: LOS: 11 days Post-Op Day: * No surgery date entered * SUBJECTIVE Patient Summary: Per last hospitalist note: 62-year-old male with history of hyperlip idemia, COPD, previous smoker, chronic systolic congestive heart failure, ischemic cardiomyo ginny EF of 30 percent status post defibrillator, coronary artery disease ST elevation NC in 03/2017 status post stent left main to LAD and left circumflex, left atrial clot previously on Coumadin, recent admission in another institution on 10/2007 for pneumonia and transferred to [facility] for unstable angina status post ANY who presented with sudden onset of shortness of breath at [facility]. She was subsequently transferred to [facility] for further evalua tion and management. Initial troponin came back marginally high at 0.613. BNP is also high a t 412. His troponin trended up. He was initially treated with Lasix and DuoNeb at [facility] with improvement of symptoms. Cardiology, Dr. Hansen was consulted. Echocardiogram was done which showed an EF of 25-30 percent. Trona is akinetic. Stress test was done revealing decrea sed uptake on stress and rest of the anterior wall, septum and apex consistent with infarct. The dilatation of the left ventricular cavity consistent with ischemic cardiomyopathy consi dered as high risk. Left ventricular ejection fraction is 80 percent. Sleep apnea also thoug ht to be contributing to the shortness of breath. Patient developed new nonsustained V. tach . Subsequently, he underwent left coronary angiogram revealing in-stent restenosis in the di stal left main and left anterior descending, left circumflex area. Since drug-eluting stents were used a year ago, cardiology did not think that restenting is the best approach. Cardio thoracic surgery was consulted for further input. 05/03/2018 Seen and examined patient. Over all, he is symptom free. No chest pain, no shortn ess of breath. He is off oxygen at room air speaking in full sentences. Her telemetry report , positive runs of V. tach. 05/04/2018 Seen and examined patient. He is currently asymptomatic. 05/05/2018 Seen and examined patient. Very independent and ambulatory. Denies any shortness of breath or chest pain. Less episodes of nonsustained V. tach overnight since starting amio darone. 05/06/2018 Seen and examined patient. Currently asymptomatic. 05/07/2018 Seen and examined patient. Long discussion about treatment plans. Currently asymp tomatic. 05/08/2018 Seen and examined patient. Very independent and ambulatory. Seen in the hallways. No shortness of breath or chest pain. 05/09/2018 Seen and examined patient. I sat down and discussed with him the chain of events i ncluding old and current findings. Explained to plants ahead. Overall, he remains to be asym ptomatic, very independent and ambulatory. 05/10/2018 Seen and examined patient. Patient still very asymptomatic. No chest pains or shor tness of breath. Events Overnight: Patient seen and examined. Reports feeling better this AM. Had even t of respiratory distress that resolved after multiple doses of Lasix. Reports that he had i ncreased his fluid intake yesterday that likely lead to the acute respiratory distress. No c hest pain. Afebrile. Tolerating PO diet. Scheduled Medications amiodarone 400 mg Oral Daily aspirin 81 mg Oral Daily with breakfast atorvastatin 80 mg Oral Nightly famotidine 20 mg Oral BID gabapentin 300 mg Oral TID insulin lispro (human) 0-3 Units Subcutaneous Nightly insulin lispro (human) 0-6 Units Subcutaneous TID AC levalbuterol 0.63 mg Nebulization 4x daily melatonin 3 mg Oral Nightly metoprolol 25 mg Oral Daily multivitamin with minerals 1 tablet Oral Daily pantoprazole 40 mg Oral BID sacubitril-valsartan 1 tablet Oral BID sodium chloride 10 mL Intravenous Q8H Continuous Infusions dextrose heparin 50 units/mL 16.58 Units/kg/hr (05/12/18 0718) PRN Medications acetaminophen OR acetaminophen, dextrose, dextrose, dextrose, glucagon, glucagon, hepar in (porcine) 5000 unit/0.5mL, heparin (porcine) 5000 unit/0.5mL, HYDROcodone-acetaminophen, nitroGLYCERIN, ondansetron OR ondansetron, perflutren lipid microspheres, polyethylene g lycol, regadenoson, sodium chloride 0.9 %, traMADol, zolpidem OBJECTIVE Vital Signs: BP 120/72 | Pulse 84 | Temp 97.9 F (36.6 C) (Oral) | Resp 22 | Ht 1.753 m (5' 9") | Wt 96.9 kg (213 lb 10 oz) | SpO2 92% | BMI 31.55 kg/m Temp: [97.5 F (36.4 C)-97.9 F (36.6 C)] 97.9 F (36.6 C) (05/12 836) BP: (118-155)/(57-111) 120/72 (05/12 836) Heart Rate: [80-114] 84 (05/12 1003) Resp: [18-40] 22 (05/12 1003) SpO2: [87 %-100 %] 92 % (05/12 1003) GENERAL: Alert and oriented x3. No acute distress. HEENT: Moist mucous membranes. Pupils equally round and reactive to light. Extraocular musc les intact. HEART: Regular rhythm. No murmurs. LUNGS: Clear to auscultation bilaterally. ABDOMEN: Bowel sounds present. Nontender, nondistended. No guarding, no rebound. EXTREMITIES: Negative for clubbing, cyanosis, or edema. NEUROLOGIC: Within normal limits. Cranial nerves II to XII grossly intact. SKIN: Wounds, ulcers, or skin lesions negative. DATA CBC: Lab Results Component Value Date WBC 9.43 05/12/2018 RBC 4.43 05/12/2018 HGB 13.8 05/12/2018 HCT 40.0 05/12/2018 MCV 90.3 05/12/2018 MCH 31.0 05/12/2018 MCHC 34.4 05/12/2018 RDW 45.9 05/12/2018 PLT 176 05/12/2018 MPV 9.5 05/12/2018 DIFFTYPE AUTOMATED 05/12/2018 CMP: Lab Results Component Value Date NA 139 05/12/2018 K 4.5 05/12/2018 CL 103 05/12/2018 CO2 26 05/12/2018 ANIONGAP 15 05/12/2018 GLUF 132 (H) 05/12/2018 BUN 21 05/12/2018 CREATININE 1.9 (H) 05/12/2018 BCR 11 05/12/2018 CA 8.6 05/12/2018 PROT 7.4 05/12/2018 ALB 3.5 05/12/2018 GLOB 3.9 05/12/2018 BILITOT 0.4 05/12/2018 ALP 97 05/12/2018 AST 21 05/12/2018 ALT 57 05/12/2018 EGFR 36 (L) 05/12/2018 IMAGING X-ray Chest 1 View Result Date: 05/11/2018 1. Interval development of bilateral perihilar infiltrate in the appropriate clinical sett ing could represent acute pulmonary edema versus a bilateral infiltrate. Correlate clinicall y 2. Transvenous pacemaker unchanged in position. Nm Thallium - Hibernating Myocardium Result Date: 05/09/2018 1. Hibernating myocardium suspected in the right coronary territory involving the inferior wall and the inferior portion of the septal wall. This region may benefit from reperfusion territory. 2. There is no significant redistribution seen in the anterior wall or anterior portion of the septum on the 4 hour or 24-hour images suggesting this is completely infarct ed and will not benefit from reperfusion therapy in the LAD territory. 3. Normal perfusion seen in the left circumflex coronary artery territory involving the lateral wall of the left ventricle. LEM LIST Principal Problem: CAD (coronary artery disease) Active Problems: COPD (chronic obstructive pulmonary disease) ([facility]) Hyperlipidemia Dyspnea Chronic systolic CHF (congestive heart failure) ([facility]) Acute renal failure superimposed on stage 3 chronic kidney disease ([facility]) ASSESSMENT & PLAN Coronary artery disease - Cardiology consulted with cardiac angiography on 05/03, restenosis distal left main, left anterior descending and left circumflex - Appreciate input from cardiology. - Appreciate input from cardiothoracic surgery; previous hospitalist discussed with Dr. Hoang maravilla, because the patient had cardiogenic shock that required ECMO in 2016, it was recommend ed that the patient be transferred over to [facility] since the technology is not available in [facility] facility; on-call cardiology at [facility], he did not see the need for inpatient toinpatient transfer at this time. Patient can follow-up as an outpatient and maybe do elective CABG if needed. - Apparently, in 10/2017 and the patient had stenting of the in-stent restenosis of the LAD, there was a viability study with unfavorable result. CABG was not an option during that brenda e. - Repeat viability studydone revealed hibernating myocardium suspected in the right coron maciej territory involving the inferior wall in the inferior portion of the septal wall. Awaiti ng further recommendations from both cardiothoracic surgery and cardiology. - Off Plavix - On heparin drip - Episodic V. tach now improved with amiodarone thought to be secondary to ischemia - Await transfer to [facility] when bed available per Dr. Hansen Acute on chronic systolic congestive heart failure - Was on Lasix, required multiple doses again last night (05/11) due to increased pulmonary e didier - Continue sodium restriction - Echo 05/01: EF 25% COPD (chronic obstructive pulmonary disease) - Stable - Not in acute exacerbation Benign essential hypertension - Stable - On reduced Sacubitril/Valsartan - Continue Toprol 25 mg daily Hyperlipidemia - Continue Lipitor Acute renal failure superimposed on stage 3 chronic kidney disease (HCC) - Improved - Continue reduced dose of entresto . - Off Lasix - Nephrology consulted, once any surgical intervention is determined, recommended to stop t he entrestoone day prior to this procedure Type II diabetes - Stable - Continue low range Humalog correctional sliding scale. - Holding home metformin Disposition: Continue heparin drip, awaiting bed at [facility] for transfer Code Status: Full Code Macho Carbajal DO 05/12/2018 12:33 PM onversion Transaction, Yuki ashley Unknown - 05/12/2018 7:53 AM PDT Nurse Progress Note by Kathryn Adler RN at 05/12/18752 Author: Kathryn Adler RN Service: (none) Author Type: Registered Nurse Filed: 05/12/18752 Date of Service: 05/12/18752 Status: Signed Acid Cutter: Kathryn Adler RN (Registered Nurse) Chart review complete. KATHRYN ADLER RN onver neema Transaction, Provider Unknown - 05/12/2018 7:00 AM PDT Nurse Progress Note by Kathryn Adler RN at 05/12/18699 Author: Kathryn Adler RN Service: (none) Author Type: Registered Nurse Filed: 05/12/18752 Date of Service: 05/12/18699 Status: Signed Acid Cutter: Kathryn Adler RN (Registered Nurse) 5-RAT called. Pt had call light on and was in respiratory distress. Pt had severe labore d breathing, tachypneic, SOB. Applied oxygen, lung sounds; crackles and coarse throughout. B P 150's. HR 110's, RR 30-40. Per MD; gave lasix, chest xray, ABG. Pt's breathing improved a lot after 2 doses. Lung sounds cleared up. Pt got a neb tx from RT which improved breathing as well. was called, she came and stayed night with pt. Pt understands to remain bedres t. O2 weaned from 8L to 2L. Pt does not appear to be in any distress this am. WCM. KATHRYN ADLER RN onver neema Transaction, Provider Unknown - 05/11/2018 6:13 PM PDT Nurse Progress Note by Lidia Hyde RN at 05/11/181812 Author: Lidia Hyde RN Service: Hospitalist Author Type: Registered Nurse Filed: 05/11/181812 Date of Service: 05/11/181812 Status: Signed Acid Cutter: Lidia Hyde RN (Registered Nurse) Chart check complete for this shift. avage , Deisy Haile MD - 05/11/2018 5:35 PM PDT Progress Notes by Deisy Hansen MD at 05/11/18 1735 Author: Deisy Hansen MD Service: (none) Author Type: Physician Filed: 05/11/18 1737 Date of Service: 05/11/18 173 Status: Signed Acid Cutter: Deisy Hansen MD (Physician) Spoke with Dr Galileo Sky, crystal evaluator at [facility]. They will accept in transfer. They antici kuhn having beds tomorrow. They will call. onversion Transaction, Provider Unknown - 05/11/2018 12:48 PM PDTFormatting of this note might be dif ferent from the original. Case Management by Mabel Bennett RN at 05/11/18 1248 Author: Mabel Bennett RN Service: (none) Author Type: Registered Nurse Filed: 05/11/18 1249 Date of Service: 05/11/18 1248 Status: Signed Acid Cutter: Mabel Bennett RN (Registered Nurse) Still pending for [facility] to make a decision on CABG. Will continue to follow Carlee onver neema Transaction, Provider Unknown - 05/11/2018 11:42 AM PDT Nurse Progress Note by Lidia Hyde RN at 05/11/18 1142 Author: Lidia Hyde RN Service: Hospitalist Author Type: Registered Nurse Filed: 05/11/18 1144 Date of Service: 05/11/18 1142 Status: Signed Acid Cutter: Lidia Hyde RN (Registered Nurse) Second therapeutic aPTT. Next aPTT is tomorrow am per Heparin protocol. acho Carbajal MD - 05/11/2018 11:06 AM PDTFormatting of this note might be different from the origin al. Progress Notes by Macho Carbajal DO at 05/11/18 1106 Author: Macho Carbajal DO Service: Hospitalist Author Type: Physician Filed: 05/11/181117 Date of Service: 05/11/181105 Status: Signed Acid Cutter: Macho Carbajal DO (Physician) [facility] Service: Hospitalist Progress Note Pt: Ron Mckeon AGE/SEX: 62 y.o. male ROOM: [address] [place] [address] PCP: Chato Matson : 1955 TODAY'S DATE: 05/11/2018 Hospital Day: LOS: 10 days Post-Op Day: * No surgery date entered * SUBJECTIVE Patient Summary: Per last hospitalist note: 62-year-old male with history of hyperlip idemia, COPD, previous smoker, chronic systolic congestive heart failure, ischemic cardiomyo ginny EF of 30 percent status post defibrillator, coronary artery disease ST elevation NC in 03/2017 status post stent left main to LAD and left circumflex, left atrial clot previously on Coumadin, recent admission in another institution on 10/2007 for pneumonia and transferred to [facility] for unstable angina status post ANY who presented with sudden onset of shortness of breath at [facility]. She was subsequently transferred to [facility] for further evalua tion and management. Initial troponin came back marginally high at 0.613. BNP is also high a t 412. His troponin trended up. He was initially treated with Lasix and DuoNeb at [facility] with improvement of symptoms. Cardiology, Dr. Hansen was consulted. Echocardiogram was done which showed an EF of 25-30 percent. Trona is akinetic. Stress test was done revealing decrea sed uptake on stress and rest of the anterior wall, septum and apex consistent with infarct. The dilatation of the left ventricular cavity consistent with ischemic cardiomyopathy consi dered as high risk. Left ventricular ejection fraction is 80 percent. Sleep apnea also thoug ht to be contributing to the shortness of breath. Patient developed new nonsustained V. tach . Subsequently, he underwent left coronary angiogram revealing in-stent restenosis in the di stal left main and left anterior descending, left circumflex area. Since drug-eluting stents were used a year ago, cardiology did not think that restenting is the best approach. Cardio thoracic surgery was consulted for further input. 05/03/2018 Seen and examined patient. Over all, he is symptom free. No chest pain, no shortn ess of breath. He is off oxygen at room air speaking in full sentences. Her telemetry report , positive runs of V. tach. 05/04/2018 Seen and examined patient. He is currently asymptomatic. 05/05/2018 Seen and examined patient. Very independent and ambulatory. Denies any shortness of breath or chest pain. Less episodes of nonsustained V. tach overnight since starting amio darone. 05/06/2018 Seen and examined patient. Currently asymptomatic. 05/07/2018 Seen and examined patient. Long discussion about treatment plans. Currently asymp tomatic. 05/08/2018 Seen and examined patient. Very independent and ambulatory. Seen in the hallways. No shortness of breath or chest pain. 05/09/2018 Seen and examined patient. I sat down and discussed with him the chain of events i ncluding old and current findings. Explained to plants ahead. Overall, he remains to be asym ptomatic, very independent and ambulatory. 05/10/2018 Seen and examined patient. Patient still very asymptomatic. No chest pains or shor tness of breath. Events Overnight: Patient seen and examined. Reports no significant problems overnigh t. Afebrile. No chest pain, shortness of breath. No signs of active bleeding. Tolerating PO diet. Scheduled Medications [START ON 05/12/2018] amiodarone 400 mg Oral Daily aspirin 81 mg Oral Daily with breakfast atorvastatin 80 mg Oral Nightly famotidine 20 mg Oral BID gabapentin 300 mg Oral TID insulin lispro (human) 0-3 Units Subcutaneous Nightly insulin lispro (human) 0-6 Units Subcutaneous TID AC melatonin 3 mg Oral Nightly metoprolol 25 mg Oral Daily multivitamin with minerals 1 tablet Oral Daily pantoprazole 40 mg Oral BID sacubitril-valsartan 1 tablet Oral BID sodium chloride 10 mL Intravenous Q8H Continuous Infusions dextrose heparin 50 units/mL 14.58 Units/kg/hr (05/11/18 0049) PRN Medications acetaminophen OR acetaminophen, dextrose, dextrose, dextrose, glucagon, glucagon, hepar in (porcine) 5000 unit/0.5mL, heparin (porcine) 5000 unit/0.5mL, HYDROcodone-acetaminophen, nitroGLYCERIN, ondansetron OR ondansetron, perflutren lipid microspheres, polyethylene g lycol, regadenoson, sodium chloride 0.9 %, traMADol, zolpidem OBJECTIVE Vital Signs: BP 114/83 | Pulse 75 | Temp 97.5 F (36.4 C) (Oral) | Resp 20 | Ht 1.753 m (5' 9") | Wt 96.9 kg (213 lb 10 oz) | SpO2 98% | BMI 31.55 kg/m Temp: [97.4 F (36.3 C)-97.9 F (36.6 C)] 97.5 F (36.4 C) (05/11 718) BP: (101-121)/(51-83) 114/83 (05/11 757) Heart Rate: [71-76] 75 (05/11 757) Resp: [16-20] 20 (05/11 718) SpO2: [93 %-98 %] 98 % (05/11 718) Weight: [96.9 kg (213 lb 10 oz)] 96.9 kg (213 lb 10 oz) (05/11 516) GENERAL: Alert and oriented x3. No acute distress. HEENT: Moist mucous membranes. Pupils equally round and reactive to light. Extraocular musc les intact. HEART: Regular rhythm. No murmurs. LUNGS: Clear to auscultation bilaterally. ABDOMEN: Bowel sounds present. Nontender, nondistended. No guarding, no rebound. EXTREMITIES: Negative for clubbing, cyanosis, or edema. NEUROLOGIC: Within normal limits. Cranial nerves II to XII grossly intact. SKIN: Wounds, ulcers, or skin lesions negative. DATA CBC: Lab Results Component Value Date WBC 7.79 05/11/2018 RBC 4.49 05/11/2018 HGB 13.7 05/11/2018 HCT 41.3 05/11/2018 MCV 92.1 05/11/2018 MCH 30.4 05/11/2018 MCHC 33.1 05/11/2018 RDW 46.4 05/11/2018 PLT 175 05/11/2018 MPV 9.6 05/11/2018 DIFFTYPE AUTOMATED 05/11/2018 CMP: Lab Results Component Value Date NA 141 05/11/2018 K 4.5 05/11/2018 CL 106 05/11/2018 CO2 25 05/11/2018 ANIONGAP 15 05/11/2018 GLUF 124 (H) 05/11/2018 BUN 18 05/11/2018 CREATININE 1.7 (H) 05/11/2018 BCR 21 05/03/2018 CA 8.7 05/11/2018 PROT 7.0 05/03/2018 ALB 3.5 05/11/2018 GLOB 3.6 05/03/2018 BILITOT 0.4 05/03/2018 ALP 90 05/03/2018 AST 22 05/03/2018 ALT 30 05/03/2018 EGFR 41 (L) 05/11/2018 IMAGING Nm Thallium - Hibernating Myocardium Result Date: 05/09/2018 1. Hibernating myocardium suspected in the right coronary territory involving the inferior wall and the inferior portion of the septal wall. This region may benefit from reperfusion territory. 2. There is no significant redistribution seen in the anterior wall or anterior portion of the septum on the 4 hour or 24-hour images suggesting this is completely infarct ed and will not benefit from reperfusion therapy in the LAD territory. 3. Normal perfusion seen in the left circumflex coronary artery territory involving the lateral wall of the left ventricle. LEM LIST Principal Problem: CAD (coronary artery disease) Active Problems: COPD (chronic obstructive pulmonary disease) ([facility]) Hyperlipidemia Dyspnea Chronic systolic CHF (congestive heart failure) ([facility]) Acute renal failure superimposed on stage 3 chronic kidney disease ([facility]) ASSESSMENT & PLAN CAD (coronary artery disease) - Cardiology consulted with cardiac angiography on 05/03, restenosis distal left main, left anterior descending and left circumflex - Appreciate input from cardiology. - Appreciate input from cardiothoracic surgery; previous hospitalist discussed with Dr. Hoang maravilla, because the patient had cardiogenic shock that required ECMO in 2016, it was recommend ed that the patient be transferred over to [facility] since the technology is not available in [facility] facility; on-call cardiology at [facility], he did not see the need for inpatient to inpatient t [facility] at this time. Patient can follow-up as an outpatient and maybe do elective CABG if n eeded. - Apparently, in 10/2017 and the patient had stenting of the in-stent restenosis of the LAD, there was a viability study with unfavorable result. CABG was not an option during that brenda e. - Repeat viability study done revealed hibernating myocardium suspected in the right ordaz ry territory involving the inferior wall in the inferior portion of the septal wall. Gage schumacher further recommendations from both cardiothoracic surgery and cardiology. - Off Plavix - On heparin drip - Episodic V. tach now improved with amiodarone thought to be secondary to ischemia - Await further recommendations from Cardiology and CTS about transfer to [facility] Acute congestive heart failure - Resolved - Was on Lasix - Continue sodium restriction - Echo 05/01: EF 25% COPD (chronic obstructive pulmonary disease) - Stable - Not in acute exacerbation Benign essential hypertension - Stable - On reduced Sacubitril/Valsartan - Continue Toprol 25 mg daily Hyperlipidemia - Continue Lipitor Acute renal failure superimposed on stage 3 chronic kidney disease (HCC) - Improved - Continue reduced dose of entresto . - Off Lasix - Nephrology consulted, once any surgical intervention is determined, recommended to stop t he entresto one day prior to this procedure Type II diabetes - Stable - Continue low range Humalog correctional sliding scale. - Holding home metformin Disposition: Continue Heparin drip, await possible transfer Code Status: Full Code Macho Carbajal DO 05/11/2018 11:06 AM avage, Deisy Haile MD - 05/11/2018 8:49 AM PDT Progress Notes by Deisy Hansen MD at 05/11/18 0849 Author: Deisy Hansen MD Service: (none) Author Type: Physician Filed: 05/11/18 0853 Date of Service: 05/11/1849 Status: Signed Acid Cutter: Deisy Hansen MD (Physician) [facility] Service: Cardiology Progress Note Hospital Day: LOS: 10 days Post-Op Day: * No surgery date entered * SUBJECTIVE Patient Summary: 62 WM with CAD Events Overnight: None OBJECTIVE Vital Signs: BP 114/83 | Pulse 75 | Temp 97.5 F (36.4 C) (Oral) | Resp 20 | Ht 1.753 m (5' 9") | Wt 96.9 kg (213 lb 10 oz) | SpO2 98% | BMI 31.55 kg/m Physical Exam GENERAL: Pleasant, talkative in no apparent distress CHEST: Good inspiratory effort with no crackles, ronchi, or wheezes. CARDIAC: No lifts/heaves. PMI is discrete and non-displaced. Normal S1 and S2. No murmur s, rubs or gallops. ABDOMEN: Soft, non-tender, nondistended with normal, active bowel sounds. Normal abdominal pulsation without bruit. EXTREMITIES: No clubbing, cyanosis, or edema. PULSES: Right: radial 2+, femoral 2+ DP 2+, PT 2+ Left: radial 2+, femoral 2+ DP 2+, PT 2+ DATA 1. Recent Labs Lab 05/11/18 0514 05/10/18 0645 05/09/18 0545 05/06/18 0449 05/04/18 0851 HGB 13.7 -- -- -- 14.7 14.4 WBC 7.79 -- -- -- 8.31 7.79 CREATININE 1.7* 1.9* 1.8* < > 1.6* -- < > = values in this interval not displayed. ASSESSMENT & PLAN [facility] favors transfer. Pt OK with plan. Will decreace amiodarone dose as has had a week of loading. DEISY HANSEN MD 05/11/2018 onversion Transaction, Provider Unknown - 05/11/2018 5:36 AM PDTFormatting of this note might be dif ferent from the original. Nurse Progress Note by Kathryn Adler RN at 05/11/18535 Author: Kathryn Adler RN Service: (none) Author Type: Registered Nurse Filed: 05/11/18535 Date of Service: 05/11/18535 Status: Signed Acid Cutter: Kathryn Adler RN (Registered Nurse) End of shift chart review complete. KATHRYN ADLER RN onver neema Transaction, Provider Unknown - 05/10/2018 6:58 PM PDT Nurse Progress Note by Lamar Schilling RN at 05/10/181857 Author: Lamar Schilling RN Service: (none) Author Type: Registered Nurse Filed: 05/10/181858 Date of Service: 05/10/181857 Status: Signed Acid Cutter: Lamar Schilling RN (Registered Nurse) No remarkable events this shift. Pt ambulating in room. Heparin therapeutic x1 this shift. Next check at 2100. No c/o of CP. 12hr chart check complete. Lamar Schilling RN, BSN Tammy Day MD - 05/10/2018 10:28 AM PDT Progress Notes by Tammy Gorman MD at 05/10/181027 Author: Tammy Gorman MD Service: Hospitalist Author Type: Physician Filed: 05/10/18 1626 Date of Service: 05/10/181027 Status: Signed Acid Cutter: Tammy Gorman MD (Physician) [facility] Service: Hospitalist Progress Note Hospital Day: LOS: 9 days SUBJECTIVE Patient Summary: 62-year-old male with history of hyperlipidemia, COPD, previous smok er, chronic systolic congestive heart failure, ischemic cardiomyopathy EF of 30 percent stat us post defibrillator, coronary artery disease ST elevation NC in 03/2017 status post stent l eft main to LAD and left circumflex, left atrial clot previously on Coumadin, recent admissi on in another institution on 10/2007 for pneumonia and transferred to [facility] for unstable angin a status post ANY who [facility] to [facility] for further evaluation and management. Initia l troponin came back marginally high at 0.613. BNP is also high at 412. His troponin trended up. He was initially treated with Lasix and DuoNeb at [facility] with improvement of symptom s. Cardiology, Dr. Hansen was consulted. Echocardiogram was done which showed an EF of 25-30 percent. Trona is akinetic. Stress test was done revealing decreased uptake on stress and re st of the anterior wall, septum and apex consistent with infarct. The dilatation of the left ventricular cavity consistent with ischemic cardiomyopathy considered as high risk. Left ve ntricular ejection fraction is 80 percent. Sleep apnea also thought to be contributing to th e shortness of breath. Patient developed new nonsustained V. tach. Subsequently, he underwen t left coronary angiogram revealing in-stent restenosis in the distal left main and left ant erior descending, left circumflex area. Since drug-eluting stents were used a year ago, card iology did not think that restenting is the best approach. Cardiothoracic surgery was consul macho for further input. Events Overnight: 05/03/2018 Seen and examined patient. Over all, he is symptom free. No chest pain, no shortn ess of breath. He is off oxygen at room air speaking in full sentences. Her telemetry report , positive runs of V. tach. 05/04/2018 Seen and examined patient. He is currently asymptomatic. 05/05/2018 Seen and examined patient. Very independent and ambulatory. Denies any shortness of breath or chest pain. Less episodes of nonsustained V. tach overnight since starting amio darone. 05/06/2018 Seen and examined patient. Currently asymptomatic. 05/07/2018 Seen and examined patient. Long discussion about treatment plans. Currently asymp tomatic. 05/08/2018 Seen and examined patient. Very independent and ambulatory. Seen in the hallways. No shortness of breath or chest pain. 05/09/2018 Seen and examined patient. I sat down and discussed with him the chain of events i ncluding old and current findings. Explained to plants ahead. Overall, he remains to be asym ptomatic, very independent and ambulatory. 05/10/2018 Seen and examined patient. Patient still very asymptomatic. No chest pains or shor tness of breath. Scheduled Medications amiodarone 400 mg Oral TID aspirin 81 mg Oral Daily with breakfast atorvastatin 80 mg Oral Nightly famotidine 20 mg Oral BID gabapentin 300 mg Oral TID insulin lispro (human) 0-3 Units Subcutaneous Nightly insulin lispro (human) 0-6 Units Subcutaneous TID AC melatonin 3 mg Oral Nightly metoprolol 25 mg Oral Daily multivitamin with minerals 1 tablet Oral Daily pantoprazole 40 mg Oral BID sacubitril-valsartan 1 tablet Oral BID sodium chloride 10 mL Intravenous Q8H Continuous Infusions dextrose heparin 50 units/mL 12.58 Units/kg/hr (05/10/18 0829) PRN Medications acetaminophen OR acetaminophen, dextrose, dextrose, dextrose, glucagon, glucagon, hepar in (porcine) 5000 unit/0.5mL, heparin (porcine) 5000 unit/0.5mL, HYDROcodone-acetaminophen, nitroGLYCERIN, ondansetron OR ondansetron, perflutren lipid microspheres, polyethylene g lycol, regadenoson, sodium chloride 0.9 %, traMADol, zolpidem OBJECTIVE Vital Signs: Vitals: 05/09/18 1929 05/10/18 0012 05/10/18 0439 05/10/18 0808 BP: 104/60 99/56 134/78 116/66 BP Location: Left upper arm Right upper arm Right upper arm Right upper arm Pulse: 73 71 77 77 Resp: Temp: 97.6 F (36.4 C) 97.8 F (36.6 C) 97.6 F (36.4 C) 97.9 F (36.6 C) TempSrc: Oral Oral Oral Oral SpO2: 95% 90% 97% 94% Weight: Height: Physical Exam General appearance: alert, appears stated age and cooperative. Mildly obese, no distress, v selena interactive, speaking in full sentences. Independent and ambulatory. Head: Normocephalic, without obvious abnormality, atraumatic Neck: no adenopathy, no carotid bruit, no JVD, supple, symmetrical, trachea midline and thy roid not enlarged, symmetric, no tenderness/mass/nodules Lungs: clear to auscultation bilaterally Heart: regular rate and rhythm, S1, S2 normal, no murmur, click, rub or gallop Abdomen: soft, non-tender; bowel sounds normal; no masses, no organomegaly Musculoskeletal: There is no redness, warmth, or swelling of the joints. Limited range of motion noted. Motor strength is 5 out of 5 all extremities bilaterally. Tone is normal. Extremities: extremities normal, atraumatic, no cyanosis or edema Pulses: 2+ and symmetric Skin: Skin color, texture, turgor normal. No rashes or lesions Lymph nodes: Cervical, supraclavicular, and axillary nodes normal. DATA, personally reviewed Recent Labs Lab 05/06/18 0449 05/04/18 0851 05/04/18 0359 WBC 8.31 7.79 6.52 HGB 14.7 14.4 13.9 HCT 42.0 42.4 40.1 PLT 176 161 140* NEUTOPHILPCT 64.99 -- 73.12 MONOPCT 6.44 -- 8.35 Recent Labs Lab 05/10/18 0645 05/09/18 0545 05/08/18 1857 05/08/18 0227 NA 138 138 -- 139 K 4.7 4.2 4.2 5.2* CL 104 105 -- 106 CO2 25 23 -- 24 BUN 21 20 -- 23 CREATININE 1.9* 1.8* -- 1.7* Phosphorus: Lab Results Component Value Date PHOS 4.2 05/10/2018 Recent Labs Lab 05/04/18 0359 MG 2.4 Recent Labs Lab 05/10/18 0645 05/10/18 0028 05/09/18 1752 05/04/18 0851 APTT 60* 67* 55* < > 30 INR -- -- -- -- 1.1 < > = values in this interval not displayed. Component Latest Ref Rng & Units 05/01/2018 05/02/2018 05/03/2018 8:15 AM 4:37 AM 5:12 AM BRAIN NATRIURETIC PEPTIDE 0 - 100 pg/mL 412 (H) 246 (H) 230 (H) Radiology, personally reviewed Xr Chest Pa And Lateral Result Date: 05/01/2018 Left midlung platelike atelectasis. Lungs are otherwise clear. Nm Myocardial Perfusion Spect (stress And Rest) Result Date: 05/02/2018 1. Decreased uptake on stress and rest of the anterior wall, septum and apex consistent wi th infarct. Dilation of the left ventricular cavity consistent with ischemic cardiomyopathy. (High risk) 2. Left ventricular ejection fraction is calculated at 18%. Risk stratificatio n according to the [place] [employer] and [place] [employer] Scientific Statement. Circulation (2008); 118: p 1497-518. Definitions: Low risk: 1. Normal or small my ocardial perfusion defect at rest or with stress.* 2. No change of resting wall motion abnor malities during stress.* Intermediate risk: 1. Mild/moderate resting left ventricular dysfun ction (LVEF = 35% to 49%). 2. Stress-induced moderate perfusion defect without left ventricu lar dilation or increased lung intake. High risk: 1. Severe resting left ventricular dysfunc tion (exercise LVEF < 35%). 2. Severe exercise left ventricular dysfunction (exercise LVEF < 35%). 3. Stress-induced large perfusion defect (particularly if anterior). 4. Stress-induce d multiple perfusion defects of moderate size. 5. Large, fixed perfusion defect with left ve ntricular dilation. 6. Stress-induced moderate perfusion defect with LV dilation. * Although the published data are limited, patients with these findings will probably not be at low ri sk in the presence of either a high risk treadmill score or severe resting left ventricular dysfunction (LVEF < 35%). LEM LIST Principal Problem: CAD (coronary artery disease) Active Problems: COPD (chronic obstructive pulmonary disease) ([facility]) Benign essential hypertension Hyperlipidemia Dyspnea Acute on chronic systolic congestive heart failure (HCC) Acute renal failure superimposed on stage 3 chronic kidney disease ([facility]) ASSESSMENT & PLAN CAD (coronary artery disease), in-stent restenosis distal left main, left anterior descen ding and left circumflex -Noted restenosis of the stents done one year prior. -Appreciate input from cardiology. -Appreciate input from cardiothoracic surgery. Discussed with Dr. Garcia, because the gela ent had cardiogenic shock that required ECMO in 2016, it was recommended that the patient be transferred over to [facility] since the technology is not available in this facility. Discussed with on-call cardiology at [facility], he did not see the need for inpatient to inpatient transfe r at this time. Patient can follow-up as an outpatient and maybe do elective CABG if needed. -Tried to do more research about the cardiac history. Apparently, in 10/2017 and the patient had stenting of the in-stent restenosis of the LAD, there was a viability study with unfavo rable result. CABG was not an option during that time. -Repeat viability study done revealed hibernating myocardium suspected in the right coronar y territory involving the inferior wall in the inferior portion of the septal wall. Awaiting further recommendations from both cardiothoracic surgery and cardiology. -Off Plavix. -Continue heparin drip. -Episodic V. tach now improved with amiodarone thought to be secondary to ischemia. Dyspnea -This could be multifactorial but clinically resolve. -Acute congestive heart failure with mild elevation in BNP might have contributed. Patient responded well to diuresis. -Possible anginal equivalent considering restenosis of the prior stents. -Symptoms now resolved. COPD (chronic obstructive pulmonary disease) (HCC) -Clinically, does not appear to be in exacerbation. -We will monitor closely. Benign essential hypertension -Blood pressures are within acceptable range. -Reduce entresto. -Continue metoprolol 25 XL. Hyperlipidemia -Continue statin. Acute on chronic systolic congestive heart failure (HCC) -Stopped Lasix because of slow worsening of creatinine. He appears to be euvolemic. -Echo reviewed. EF between 25-30 percent. -Limit salt. Acute renal failure superimposed on stage 3 chronic kidney disease (HCC) -Creatinine is worsening. -Avoid nephrotoxins. -Continue reduced dose of entresto . -Stop Lasix. -Appreciate nephrology input. Discussed with Dr. Triplett. Once any surgical intervention is undetermined, he recommended to stop the entresto one day prior to this procedure. -Monitor for hyperkalemia. Type II diabetes -Continue low range Humalog correctional sliding scale. -Hold metformin in the meantime. -Patient has not received any coverage of insulin except for one episode. We will change to cardiac diet only. DVT prophylaxis: In place. GI prophylaxis: In place. Disposition: Inpatient. Code Status: Full Code Dictation and stogie packer or software, AudienceView, used which may contain error for similar s ounding words even after review. Personal communication requested for any clarification. TAMMY GORMAN MD 05/10/2018 10:28 AM onversion Transact ion, Provider Unknown - 05/09/2018 4:41 PM PDTFormatting of this note might be different fr om the original. Nurse Progress Note by Marianne Judge RN at 05/09/181640 Author: Marianne Judge RN Service: (none) Author Type: Registered Nurse Filed: 05/09/18 2120 Date of Service: 05/09/181640 Status: Signed Acid Cutter: Marianne Judge RN (Registered Nurse) Pt ambulating in hyde throughout the day. Medicated for pain per MD order parameters with a dequate relief. Continues on heparin drip. Hourly rounding otherwise uneventful. Chart review complete. Marianne Judge RN Myra Reed MD - 05/09/2018 4:15 PM PDTFormatting of this note might be different from the or iginal. Progress Notes by Myra Triplett MD at 05/09/18 1615 Author: Myra Triplett MD Service: Nephrology Author Type: Physician Filed: 05/09/18 1621 Date of Service: 05/09/18 1614 Status: Signed Acid Cutter: Myra Triplett MD (Physician) PCP : Chato Matson LOS: 8 days Ron Mckeon is a 62 y.o. man followed for acute on chronic renal failure. 05/09/18 He feels 'OK' today and has no fever, chills sweats, nausea, vomiting or diarrhea, shortne ss of breath, chest pain, cough. ROS: As in History of Present Illness. 7 area ROS was done and was otherwise negative. Examination: Vitals: As noted General appearance: NAD, conversant Neck: FROM, supple. No JVD. Lungs: Clear to auscultation. Effort fair. CV: RRR, no MRGs; normal carotid upstroke and amplitude without bruits Abdomen: Soft, non-tender; no masses or HSM Extremities: No peripheral edema or digital cyanosis Skin: No rash, lesions or ulcers Psych: Pleasant demeanor Neurologic: Alert and oriented to person, place and time. Gait normal.. Speech clear. The following portions of the patient's history were reviewed and updated as appropriate: l aboratory data, radiologic studies, allergies, current medications, and problem list. Past m edical, surgical, social, and family history was also reviewed as appropriate. Past history summarized as above. Vital Signs: BP 116/64 (BP Location: Left upper arm) | Pulse 75 | Temp 97.5 F (36.4 C) (Oral) | R anaid 20 | Ht 1.753 m (5' 9") | Wt 95.2 kg (209 lb 14.1 oz) | SpO2 94% | BMI 30.99 kg/m Intake/Output Summary (Last 24 hours) at 05/09/18 1616 Last data filed at 05/09/18 1428 Gross per 24 hour Intake 1145 ml Output 2600 ml Net -1455 ml Data evaluation: Lab Results Component Value Date BUN 20 05/09/2018 CREATININE 1.8 (H) 05/09/2018 EGFR 38 (L) 05/09/2018 NA 138 05/09/2018 K 4.2 05/09/2018 CL 105 05/09/2018 CO2 23 05/09/2018 CA 8.7 05/09/2018 PHOS 4.2 05/09/2018 MG 2.4 05/04/2018 ALB 3.8 05/09/2018 HGB 14.7 05/06/2018 Component Value Date/Time CREATININE 1.8 (H) 05/09/2018 0545 CREATININE 1.7 (H) 05/08/2018 022 CREATININE 1.6 (H) 05/06/2018 0449 CREATININE 1.5 (H) 05/04/2018 0359 CREATININE 1.4 (H) 05/03/2018 0512 CREATININE 1.6 (H) 05/02/2018 0437 CREATININE 1.8 (H) 05/01/2018 0815 EGFR 38 (L) 05/09/2018 0545 EGFR 41 (L) 05/08/2018 0227 EGFR 44 (L) 05/06/2018 0449 EGFR 47 (L) 05/04/2018 0359 EGFR 51 (L) 05/03/2018 0512 EGFR 44 (L) 05/02/2018 0437 EGFR 38 (L) 05/01/2018 0815 Component Value Date/Time BUN 20 05/09/2018 0545 BUN 23 05/08/2018 0227 BUN 25 05/06/2018 0449 BUN 27 (H) 05/04/2018 0359 BUN 29 (H) 05/03/2018 0512 BUN 29 (H) 05/02/2018 0437 BUN 27 (H) 05/01/2018 0815 Lab Results Component Value Date HGB 14.7 05/06/2018 HGB 14.4 05/04/2018 HGB 13.9 05/04/2018 Lab Results Component Value Date K 4.2 05/09/2018 K 4.2 05/08/2018 K 5.2 (H) 05/08/2018 . Lab Results Component Value Date NA 138 05/09/2018 NA 139 05/08/2018 NA 139 05/06/2018 Lab Results Component Value Date ALB 3.8 05/09/2018 ALB 3.3 05/08/2018 ALB 3.7 05/06/2018 Lab Results Component Value Date CA 8.7 05/09/2018 CA 8.7 05/08/2018 CA 9.3 05/06/2018 Lab Results Component Value Date PHOS 4.2 05/09/2018 PHOS 4.7 05/08/2018 PHOS 4.6 05/06/2018 Lab Results Component Value Date MG 2.4 05/04/2018 MG 2.5 (H) 05/02/2018 No results found for: PTHINT, PTHINTACT Lab Results Component Value Date CO2 23 05/09/2018 CO2 24 05/08/2018 CO2 26 05/06/2018 Lab Results Component Value Date ANIONGAP 14 05/09/2018 EKG 05/01/18 showed Normal sinus rhythm, Non-specific intra-ventricular conduction block, La teral infarct Ct Chest Without Contrast 05/04/2018 showed 1. No pulmonary edema, infiltrates, or effusions. 2. Centrilobular emphysematous change of the right greater than left upper to midlung zone , with previous granulomatous disease. 3. Minimal focal ectasia of the lateral aortic arch, with mild atheromatous changes of the aorta and coronaries, again with coronary arterial stents Us Kidneys And Bladder 05/04/2018 showed no shadowing renal stones or hydronephrosis. 2. Po stvoid bladder residual of 14 mL. Echo 05/03/2018 showed 1. EF between 25 - 30 %. Nm Thallium - Hibernating Myocardium 05/09/2018 1. Hibernating myocardium suspected in the right coronary territory involving the inferior wall and the inferior portion of the septal wall. 2. There was no significant redistribution seen in the anterior wall or anterior portion o f the septum on the 4 hour or 24-hour images suggesting this was completely infarcted and wo uld not benefit from reperfusion therapy in the LAD territory. 3. Normal perfusion seen in the left circumflex coronary artery territory involving the la teral wall of the left ventricle. Assessment and Recommendations: 1. Acute on chronic renal failure 2. Chronic systolic CHF 3. CAD 4. Unstable angina 5. Essential hypertension His baseline creatinine is 1.3-1.5 and he now has recurrent superimposed AYLIN with overdiure sis and relative hypotension. He is hemodynamically stable with no fever/tachycardia/bradycardia/hypotension or severe hy pertension/hypoxia at rest. I would recommend holding diuretic for now (he will of course need in the future as part of his regime given severe systolic CHF). Continue Sacubitril/Valsartan in reduced dose (to be held prior to anticipated CABG). Diet 2 gm Na diet Dose all meds for an eGFR of less than 30 ml/min/1.73 m2. No use of NSAIDs (including MARIA 2 inhibitors). No use of Magnesium or aluminum containing antacids. No use of Magnesium or phosphorus containing laxatives Strict I/O Daily weights. Daily BMP (including Ca, PO4, Mg) MYRA TRIPLETT MD 05/09/2018 Plan of care was discussed with Dr. Gorman He was seen earlier in the day and charting was completed later after rounds. Dictation software, AudienceView, was used which may contain error for similar sounding words pantera n after review. Personal communication is requested for any clarification. Prognosis is guarded in view of multiple comorbid illnesses and acute on chronic renal fail ure including but not limited to potential need for CARE TRANSITION COORDINATOR amiodarone 400 mg Oral TID aspirin 81 mg Oral Daily with breakfast atorvastatin 80 mg Oral Nightly famotidine 20 mg Oral BID gabapentin 300 mg Oral TID insulin lispro (human) 0-3 Units Subcutaneous Nightly insulin lispro (human) 0-6 Units Subcutaneous TID AC melatonin 3 mg Oral Nightly metoprolol 25 mg Oral Daily multivitamin with minerals 1 tablet Oral Daily pantoprazole 40 mg Oral BID sacubitril-valsartan 1 tablet Oral BID sodium chloride 10 mL Intravenous Q8H dextrose heparin 50 units/mL 16.582 Units/kg/hr (05/09/18 1216) Tammy Day MD - 05/09/2018 7:27 AM PDT Progress Notes by Tammy Gorman MD at 05/09/18 4690 Author: Tammy Gorman MD Service: Hospitalist Author Type: Physician Filed: 05/09/18 1012 Date of Service: 09/02/18 0727 Status: Signed Acid Cutter: Tammy Gorman MD (Physician) [facility] Service: Hospitalist Progress Note Hospital Day: LOS: 8 days SUBJECTIVE Patient Summary: 62-year-old male with history of hyperlipidemia, COPD, previous smok er, chronic systolic congestive heart failure, ischemic cardiomyopathy EF of 30 percent stat us post defibrillator, coronary artery disease ST elevation NC in 03/2017 status post stent l eft main to LAD and left circumflex, left atrial clot previously on Coumadin, recent admissi on in another institution on 10/2007 for pneumonia and transferred to [facility] for unstable angin a status post ANY who presented with sudden onset of shortness of breath at [facility]. She was subsequently transferred to [facility] for further evaluation and management. Initia l troponin came back marginally high at 0.613. BNP is also high at 412. His troponin trended up. He was initially treated with Lasix and DuoNeb at [facility] with improvement of symptom s. Cardiology, Dr. Hansen was consulted. Echocardiogram was done which showed an EF of 25-30 percent. Trona is akinetic. Stress test was done revealing decreased uptake on stress and re st of the anterior wall, septum and apex consistent with infarct. The dilatation of the left ventricular cavity consistent with ischemic cardiomyopathy considered as high risk. Left ve ntricular ejection fraction is 80 percent. Sleep apnea also thought to be contributing to th e shortness of breath. Patient developed new nonsustained V. tach. Subsequently, he underwen t left coronary angiogram revealing in-stent restenosis in the distal left main and left ant erior descending, left circumflex area. Since drug-eluting stents were used a year ago, card iology did not think that restenting is the best approach. Cardiothoracic surgery was consul macho for further input. Events Overnight: 05/03/2018 Seen and examined patient. Over all, he is symptom free. No chest pain, no shortn ess of breath. He is off oxygen at room air speaking in full sentences. Her telemetry report , positive runs of V. tach. 05/04/2018 Seen and examined patient. He is currently asymptomatic. 05/05/2018 Seen and examined patient. Very independent and ambulatory. Denies any shortness of breath or chest pain. Less episodes of nonsustained V. tach overnight since starting amio darone. 05/06/2018 Seen and examined patient. Currently asymptomatic. 05/07/2018 Seen and examined patient. Long discussion about treatment plans. Currently asymp tomatic. 05/08/2018 Seen and examined patient. Very independent and ambulatory. Seen in the hallways. No shortness of breath or chest pain. 05/09/2018 Seen and examined patient. I sat down and discussed with him the chain of events i ncluding old and current findings. Explained to plants ahead. Overall, he remains to be asym ptomatic, very independent and ambulatory. Scheduled Medications amiodarone 400 mg Oral TID aspirin 81 mg Oral Daily with breakfast atorvastatin 80 mg Oral Nightly famotidine 20 mg Oral BID gabapentin 300 mg Oral TID insulin lispro (human) 0-3 Units Subcutaneous Nightly insulin lispro (human) 0-6 Units Subcutaneous TID AC melatonin 3 mg Oral Nightly metoprolol 25 mg Oral Daily multivitamin with minerals 1 tablet Oral Daily pantoprazole 40 mg Oral BID sacubitril-valsartan 1 tablet Oral BID sodium chloride 10 mL Intravenous Q8H Continuous Infusions dextrose heparin 50 units/mL 14.582 Units/kg/hr (05/09/18 0628) PRN Medications acetaminophen OR acetaminophen, dextrose, dextrose, dextrose, glucagon, glucagon, hepar in (porcine) 5000 unit/0.5mL, heparin (porcine) 5000 unit/0.5mL, HYDROcodone-acetaminophen, nitroGLYCERIN, ondansetron OR ondansetron, perflutren lipid microspheres, polyethylene g lycol, regadenoson, sodium chloride 0.9 %, traMADol, zolpidem OBJECTIVE Vital Signs: Vitals: 05/08/18 1920 05/08/18 2200 05/08/18 2314 05/09/18 0446 BP: 122/63 117/66 117/66 BP Location: Left upper arm Left upper arm Pulse: 81 67 73 Resp: Temp: 97.6 F (36.4 C) 97.9 F (36.6 C) 98.2 F (36.8 C) TempSrc: Oral Oral Oral SpO2: 97% 94% 96% Weight: 95.2 kg (209 lb 14.1 oz) Height: Physical Exam General appearance: alert, appears stated age and cooperative. Mildly obese, no distress, v selena interactive, speaking in full sentences. Independent and ambulatory. Head: Normocephalic, without obvious abnormality, atraumatic Neck: no adenopathy, no carotid bruit, no JVD, supple, symmetrical, trachea midline and thy roid not enlarged, symmetric, no tenderness/mass/nodules Lungs: clear to auscultation bilaterally Heart: regular rate and rhythm, S1, S2 normal, no murmur, click, rub or gallop Abdomen: soft, non-tender; bowel sounds normal; no masses, no organomegaly Musculoskeletal: There is no redness, warmth, or swelling of the joints. Limited range of motion noted. Motor strength is 5 out of 5 all extremities bilaterally. Tone is normal. Extremities: extremities normal, atraumatic, no cyanosis or edema Pulses: 2+ and symmetric Skin: Skin color, texture, turgor normal. No rashes or lesions Lymph nodes: Cervical, supraclavicular, and axillary nodes normal. DATA, personally reviewed Recent Labs Lab 05/06/18 0449 05/04/18 0851 05/04/18 0359 05/03/18 0512 WBC 8.31 7.79 6.52 6.33 HGB 14.7 14.4 13.9 13.3 HCT 42.0 42.4 40.1 38.9* PLT 176 161 140* 142* NEUTOPHILPCT 64.99 -- 73.12 67.96 MONOPCT 6.44 -- 8.35 9.12 Recent Labs Lab 05/09/18 0545 05/08/18 1857 05/08/18 0227 05/06/18 0449 05/03/18 0512 NA 138 -- 139 139 < > 143 K 4.2 4.2 5.2* 4.4 < > 4.4 CL 105 -- 106 105 < > 110* CO2 23 -- 24 26 < > 24 BUN 20 -- 23 25 < > 29* CREATININE 1.8* -- 1.7* 1.6* < > 1.4* PROT -- -- -- -- -- 7.0 BILITOT -- -- -- -- -- 0.4 ALT -- -- -- -- -- 30 AST -- -- -- -- -- 22 < > = values in this interval not displayed. Phosphorus: Lab Results Component Value Date PHOS 4.2 05/09/2018 Recent Labs Lab 05/04/18 0359 MG 2.4 Recent Labs Lab 05/09/18 0545 05/08/18 2120 05/08/18 0827 05/04/18 0851 APTT 40* 33* 58* < > 30 INR -- -- -- -- 1.1 < > = values in this interval not displayed. Component Latest Ref Rng & Units 05/01/2018 05/02/2018 05/03/2018 8:15 AM 4:37 AM 5:12 AM BRAIN NATRIURETIC PEPTIDE 0 - 100 pg/mL 412 (H) 246 (H) 230 (H) Radiology, personally reviewed Xr Chest Pa And Lateral Result Date: 05/01/2018 Left midlung platelike atelectasis. Lungs are otherwise clear. Nm Myocardial Perfusion Spect (stress And Rest) Result Date: 05/02/2018 1. Decreased uptake on stress and rest of the anterior wall, septum and apex consistent wi th infarct. Dilation of the left ventricular cavity consistent with ischemic cardiomyopathy. (High risk) 2. Left ventricular ejection fraction is calculated at 18%. Risk stratificatio n according to the [place] [employer] and [place] [employer] Scientific Statement. Circulation (2008); 118: p 1497-518. Definitions: Low risk: 1. Normal or small my ocardial perfusion defect at rest or with stress.* 2. No change of resting wall motion abnor malities during stress.* Intermediate risk: 1. Mild/moderate resting left ventricular dysfun ction (LVEF = 35% to 49%). 2. Stress-induced moderate perfusion defect without left ventricu lar dilation or increased lung intake. High risk: 1. Severe resting left ventricular dysfunc tion (exercise LVEF < 35%). 2. Severe exercise left ventricular dysfunction (exercise LVEF < 35%). 3. Stress-induced large perfusion defect (particularly if anterior). 4. Stress-induce d multiple perfusion defects of moderate size. 5. Large, fixed perfusion defect with left ve ntricular dilation. 6. Stress-induced moderate perfusion defect with LV dilation. * Although the published data are limited, patients with these findings will probably not be at low ri sk in the presence of either a high risk treadmill score or severe resting left ventricular dysfunction (LVEF < 35%). LEM LIST Principal Problem: CAD (coronary artery disease) Active Problems: COPD (chronic obstructive pulmonary disease) ([facility]) Benign essential hypertension Hyperlipidemia Dyspnea Acute on chronic systolic congestive heart failure (HCC) Acute renal failure superimposed on stage 3 chronic kidney disease ([facility]) ASSESSMENT & PLAN CAD (coronary artery disease), in-stent restenosis distal left main, left anterior descen ding and left circumflex -Noted restenosis of the stents done one year prior. -Appreciate input from cardiology. -Appreciate input from cardiothoracic surgery. Discussed with Dr. Garcia, because the gela ent had cardiogenic shock that required ECMO in 2017, it was recommended that the patient be transferred over to [facility] since the technology is not available in this facility. Discussed with on-call cardiology at [facility], he did not see the need for inpatient inpatient transfer a t this time. Patient can follow-up as an outpatient and maybe do elective CABG if needed. -Tried to do more research about the cardiac history. Apparently, in 10/2017 and the patient had stenting of the in-stent restenosis of the LAD, there was a viability study with unfavo rable result. CABG was not an option during that time. -Repeat viability study is pending. Further recommendations from both cardiothoracic surger y and cardiology pending results. -Off Plavix. -Continue heparin drip. -Episodic V. tach now improved with amiodarone thought to be secondary to ischemia. Dyspnea -This could be multifactorial but clinically resolve. -Acute congestive heart failure with mild elevation in BNP might have contributed. Patient responded well to diuresis. -Possible anginal equivalent considering restenosis of the prior stents. -Symptoms now resolved. COPD (chronic obstructive pulmonary disease) ([facility]) -Clinically, does not appear to be in exacerbation. -We will monitor closely. Benign essential hypertension -Blood pressures are within acceptable range. -Reduce entresto. -Continue metoprolol 25 XL. Hyperlipidemia -Continue statin. Acute on chronic systolic congestive heart failure (HCC) -Stop Lasix because of slow worsening of creatinine. -Echo reviewed. EF between 25-30 percent. -Limit salt. Acute renal failure superimposed on stage 3 chronic kidney disease (HCC) -Creatinine is worsening. -Avoid nephrotoxins. -Continue reduced dose of entresto 24/26. -Stop Lasix. -Appreciate nephrology input. Discussed with Dr. Triplett. -For his hyperkalemia, it is now back to normal range. Type II diabetes -Continue low range Humalog correctional sliding scale. -Hold metformin in the meantime. -Patient has not received any coverage of insulin except for one episode. We will change to cardiac diet only. DVT prophylaxis: In place. GI prophylaxis: In place. Disposition: Inpatient. Code Status: Full Code Dictation and stogie packer or software, AudienceView, used which may contain error for similar s ounding words even after review. Personal communication requested for any clarification. TAMMY GORMAN MD 05/09/2018 7:27 AM onversion Transact ion, Provider Unknown - 05/08/2018 4:00 PM PDTFormatting of this note might be different fr om the original. Nurse Progress Note by Monique Estrada RN at 05/08/18 1600 Author: Monique Estrada RN Service: (none) Author Type: Registered Nurse Filed: 05/08/18 1703 Date of Service: 05/08/18 1600 Status: Signed Acid Cutter: Monique Estrada RN (Registered Nurse) Received report from Nisa HAMILTON. Chart review complete. Monique Estrada RN Tammy Day MD - 05/08/2018 3:13 PM PDT Progress Notes by Tammy Gorman MD at 05/08/18 1513 Author: Tammy Gorman MD Service: Hospitalist Author Type: Physician Filed: 05/08/18 1528 Date of Service: 05/08/18 1513 Status: Signed Acid Cutter: Tammy Gorman MD (Physician) [facility] Service: Hospitalist Progress Note Hospital Day: LOS: 7 days SUBJECTIVE Patient Summary: 62-year-old male with history of hyperlipidemia, COPD, previous smok er, chronic systolic congestive heart failure, ischemic cardiomyopathy EF of 30 percent stat us post defibrillator, coronary artery disease ST elevation NC in 03/2017 status post stent l eft main to LAD and left circumflex, left atrial clot previously on Coumadin, recent admissi on in another institution on 10/2007 for pneumonia and transferred to [facility] for unstable angin a status post ANY who presented with sudden onset of shortness of breath at [facility]. She was subsequently transferred to [facility] for further evaluation and management. Initia l troponin came back marginally high at 0.613. BNP is also high at 412. His troponin trended up. He was initially treated with Lasix and DuoNeb at [place] with improvement of symptom s. Cardiology, Dr. Hansen was consulted. Echocardiogram was done which showed an EF of 25-30 percent. [place] is akinetic. Stress test was done revealing decreased uptake on stress and re st of the anterior wall, septum and apex consistent with infarct. The dilatation of the left ventricular cavity consistent with ischemic cardiomyopathy considered as high risk. Left ve ntricular ejection fraction is 80 percent. Sleep apnea also thought to be contributing to th e shortness of breath. Patient developed new nonsustained V. tach. Subsequently, he underwen t left coronary angiogram revealing in-stent restenosis in the distal left main and left ant erior descending, left circumflex area. Since drug-eluting stents were used a year ago, card iology did not think that restenting is the best approach. Cardiothoracic surgery was consul macho for further input. Events Overnight: 05/03/2018 Seen and examined patient. Over all, he is symptom free. No chest pain, no shortn ess of breath. He is off oxygen at room air speaking in full sentences. Her telemetry report , positive runs of V. tach. 05/04/2018 Seen and examined patient. He is currently asymptomatic. 05/05/2018 Seen and examined patient. Very independent and ambulatory. Denies any shortness of breath or chest pain. Less episodes of nonsustained V. tach overnight since starting amio darone. 05/06/2018 Seen and examined patient. Currently asymptomatic. 05/07/2018 Seen and examined patient. Long discussion about treatment plans. Currently asymp tomatic. 05/08/2018 Seen and examined patient. Very independent and ambulatory. Seen in the hallways. No shortness of breath or chest pain. Scheduled Medications amiodarone 400 mg Oral TID aspirin 81 mg Oral Daily with breakfast atorvastatin 80 mg Oral Nightly famotidine 20 mg Oral BID furosemide 20 mg Oral Daily gabapentin 300 mg Oral TID insulin lispro (human) 0-3 Units Subcutaneous Nightly insulin lispro (human) 0-6 Units Subcutaneous TID AC melatonin 3 mg Oral Nightly metoprolol 25 mg Oral Daily multivitamin with minerals 1 tablet Oral Daily pantoprazole 40 mg Oral BID sacubitril-valsartan 1 tablet Oral BID sodium chloride 10 mL Intravenous Q8H Continuous Infusions dextrose heparin 50 units/mL 12.58 Units/kg/hr (05/08/18 0925) PRN Medications acetaminophen OR acetaminophen, dextrose, dextrose, dextrose, glucagon, glucagon, hepar in (porcine) 5000 unit/0.5mL, heparin (porcine) 5000 unit/0.5mL, HYDROcodone-acetaminophen, nitroGLYCERIN, ondansetron OR ondansetron, perflutren lipid microspheres, polyethylene g lycol, regadenoson, sodium chloride 0.9 %, traMADol, zolpidem OBJECTIVE Vital Signs: Vitals: 05/08/18 0336 05/08/18 0522 05/08/18 0743 05/08/18 1111 BP: 92/55 119/74 99/57 99/63 BP Location: Right upper arm Left upper arm Left upper arm Pulse: 69 68 72 Resp: 18 20 14 Temp: 97.7 F (36.5 C) 98.4 F (36.9 C) 97.6 F (36.4 C) TempSrc: Oral Oral Oral SpO2: 93% 97% 96% Weight: Height: Physical Exam General appearance: alert, appears stated age and cooperative. Mildly obese, no distress, v selena interactive, speaking in full sentences. Independent and ambulatory. Head: Normocephalic, without obvious abnormality, atraumatic Neck: no adenopathy, no carotid bruit, no JVD, supple, symmetrical, trachea midline and thy roid not enlarged, symmetric, no tenderness/mass/nodules Lungs: clear to auscultation bilaterally Heart: regular rate and rhythm, S1, S2 normal, no murmur, click, rub or gallop Abdomen: soft, non-tender; bowel sounds normal; no masses, no organomegaly Musculoskeletal: There is no redness, warmth, or swelling of the joints. Limited range of motion noted. Motor strength is 5 out of 5 all extremities bilaterally. Tone is normal. Extremities: extremities normal, atraumatic, no cyanosis or edema Pulses: 2+ and symmetric Skin: Skin color, texture, turgor normal. No rashes or lesions Lymph nodes: Cervical, supraclavicular, and axillary nodes normal. DATA, personally reviewed Recent Labs Lab 05/06/1844805/04/18 0851 05/04/189 05/03/18 0512 WBC 8.31 7.79 6.52 6.33 HGB 14.7 14.4 13.9 13.3 HCT 42.0 42.4 40.1 38.9* PLT 176 161 140* 142* NEUTOPHILPCT 64.99 -- 73.12 67.96 MONOPCT 6.44 -- 8.35 9.12 Recent Labs Lab 05/08/1822605/06/1844805/04/189 05/03/18 0512 NA 139 139 139 143 K 5.2* 4.4 4.3 4.4 CL 106 105 107 110* CO2 24 26 22* 24 BUN 23 25 27* 29* CREATININE 1.7* 1.6* 1.5* 1.4* PROT -- -- -- 7.0 BILITOT -- -- -- 0.4 ALT -- -- -- 30 AST -- -- -- 22 Phosphorus: Lab Results Component Value Date PHOS 4.7 05/08/2018 Recent Labs Lab 05/04/18 0359 05/02/18 0437 MG 2.4 2.5* Recent Labs Lab 05/08/1827 05/08/184 05/07/18 1914 05/04/18 0851 APTT 58* 46* 41* < > 30 INR -- -- -- -- 1.1 < > = values in this interval not displayed. Recent Labs Lab 05/02/18 0437 TSH 1.130 Recent Labs Lab 05/01/18 1805 TROPONINI 0.664* Component Latest Ref Rng & Units 05/01/2018 05/02/2018 05/03/2018 8:15 AM 4:37 AM 5:12 AM BRAIN NATRIURETIC PEPTIDE 0 - 100 pg/mL 412 (H) 246 (H) 230 (H) Radiology, personally reviewed Xr Chest Pa And Lateral Result Date: 05/01/2018 Left midlung platelike atelectasis. Lungs are otherwise clear. Nm Myocardial Perfusion Spect (stress And Rest) Result Date: 05/02/2018 1. Decreased uptake on stress and rest of the anterior wall, septum and apex consistent wi th infarct. Dilation of the left ventricular cavity consistent with ischemic cardiomyopathy. (High risk) 2. Left ventricular ejection fraction is calculated at 18%. Risk stratificatio n according to the [place] [employer] and [place] [employer] Scientific Statement. Circulation (2008); 118: p 1497-518. Definitions: Low risk: 1. Normal or small my ocardial perfusion defect at rest or with stress.* 2. No change of resting wall motion abnor malities during stress.* Intermediate risk: 1. Mild/moderate resting left ventricular dysfun ction (LVEF = 35% to 49%). 2. Stress-induced moderate perfusion defect without left ventricu lar dilation or increased lung intake. High risk: 1. Severe resting left ventricular dysfunc tion (exercise LVEF < 35%). 2. Severe exercise left ventricular dysfunction (exercise LVEF < 35%). 3. Stress-induced large perfusion defect (particularly if anterior). 4. Stress-induce d multiple perfusion defects of moderate size. 5. Large, fixed perfusion defect with left ve ntricular dilation. 6. Stress-induced moderate perfusion defect with LV dilation. * Although the published data are limited, patients with these findings will probably not be at low ri sk in the presence of either a high risk treadmill score or severe resting left ventricular dysfunction (LVEF < 35%). LEM LIST Principal Problem: CAD (coronary artery disease) Active Problems: COPD (chronic obstructive pulmonary disease) (HCC) Benign essential hypertension Hyperlipidemia Dyspnea Acute on chronic systolic congestive heart failure (HCC) Acute renal failure superimposed on stage 3 chronic kidney disease (HCC) ASSESSMENT & PLAN CAD (coronary artery disease), in-stent restenosis distal left main, left anterior descen ding and left circumflex -Noted restenosis of the stents done one year prior. -Appreciate input from cardiology. -Appreciate input from cardiothoracic surgery. Discussed with Dr. Garcia, because the gela ent had cardiogenic shock that required ECMO in 2017, it was recommended that the patient be transferred over to [facility] since the technology is not available in this facility. Discussed with on-call cardiology at [facility], he did not see the need for inpatient inpatient transfer a t this time. Patient can follow-up as an outpatient and maybe do elective CABG if needed. -Tried to do more research about the cardiac history. Apparently, in 10/2017 and the patient had stenting of the in-stent restenosis of the LAD, there was a viability study with unfavo rable result. CABG was not an option during that time. -Rather viability testing scheduled for this afternoon. -Off Plavix. -Continue heparin drip. -Episodic V. tach now improved with amiodarone thought to be secondary to ischemia. Dyspnea -This could be multifactorial but clinically resolve. -Acute congestive heart failure with mild elevation in BNP might have contributed. Patient responded well to diuresis. -Possible anginal equivalent considering restenosis of the prior stents. -Symptoms now resolved. COPD (chronic obstructive pulmonary disease) (HCC) -Clinically, does not appear to be in exacerbation. -We will monitor closely. Benign essential hypertension -Blood pressures are within acceptable range. -Reduce entresto. -Continue metoprolol 25 XL. Hyperlipidemia -Continue statin. Acute on chronic systolic congestive heart failure (HCC) -Stop Lasix because of slow worsening of creatinine. -Echo reviewed. EF between 25-30 percent. -Limit salt. Acute renal failure superimposed on stage 3 chronic kidney disease (HCC) -Creatinine is worsening. -Avoid nephrotoxins. -Reduce entresto to 24/. -Stop Lasix. -Appreciate nephrology input. -For his hyperkalemia, we will give combination of D50 and insulin, Kayexalate. -Repeat potassium in PM. Type II diabetes -Continue low range Humalog correctional sliding scale. -Hold metformin in the meantime. -Patient has not received any coverage of insulin except for one episode. We will change to cardiac diet only. DVT prophylaxis: In place. GI prophylaxis: In place. Disposition: Inpatient. Code Status: Full Code Dictation and stogie packer or software, AudienceView, used which may contain error for similar s ounding words even after review. Personal communication requested for any clarification. TAMMY GORMAN MD 05/08/2018 3:13 PM onversion Transact ion, Provider Unknown - 05/08/2018 1:04 PM PDTFormatting of this note might be different fr om the original. Progress Notes by Jamaal Wilcox RD at 05/08/18 1304 Author: Jamaal Wilcox RD Service: (none) Author Type: Registered Dietitian Filed: 05/08/18 2065 Date of Service: 05/08/18 130 Status: Signed Acid Cutter: Jamaal Wilcox RD (Registered Dietitian) 05/08/18 1252 Subjective Timepoint Admit (Triggers for LOS. ) Pt c/o Pt admitted for CAD, has hx of CHF, needs CABG. Spoke with pt briefly becuase our di scussion was interrupted because pt was being transferred to Nuclear medicine for a procedur e. At time of visit, pt was eating lunch and stated his appetite has been good during his st ay. Reported by Patient Fluid / Beverage Intake Oral Fluids Amount Drinking fluids ad lolita. Food Intake Amount of Food Pt reports eating 3 x a day and intake of meals is 100%. Type of Food / Meals Cardiac diet. Micronutrient Intake Vitamin Intake Multivitamin Mineral / Element Intake Multi-mineral Nutrition-Focused Physical Findings Overall Appearance Appears well nourished. Extremities, Muscles and Bones Dependent BLE edema noted. Anthropometrics Weight change Pt's wt is down 4.2 kg since admit. Suspect wt loss is fluid related. Accordi ng to I/O's pt is approx - 9.5 L of fluid, lasix ordered. Biochemical data, medical tests, and procedures reviewed Biochemical data, medical tests, and procedures reviewed BG variable 110s - 130s previous 2 4 hrs, insulin ordered. Pt states he is not a diabetic. Recommend checking HGBA1c. K+ 5.2 H, Cr 1.7 H consistent with impaired renal function. Recommendations Recommended energy needs Recommend adding renal diet restricitions. Intake appears adequate at this time, will continue to monitor and follow per protocol. Nutritional Risk Nutritional risk Low Follow up date 05/15/[address] avakaren , Deisy Haile MD - 05/08/2018 12:06 PM PDT Progress Notes by Deisy Hansen MD at 05/08/186 Author: Deisy Hansen MD Service: (none) Author Type: Physician Filed: 05/08/18 1221 Date of Service: 05/08/181205 Status: Signed Acid Cutter: Deisy Hansen MD (Physician) Pt feels well today. Reviewed DC summary from [facility] this October. He did have repeat stents in LM and Lcx at that time, so there are 2 layers of stents there . That strategy is not a good option going forward as he has proven twice to re stenose ANY placement. There was a decision there not do do CABG based on pet and thallium showing non-viability i n some portion of the heart. On our nuc study the anterior wall is silent, but the LCx territory is well perfused. Cath shows LCX with very tight ostial stenosis. I think he has dyspnea as his anginal equivalent and presented with that. His LCx needs rev ascularized and PCI is not an option. Favor revascularization of LAD as well regardless of t hallium, but conduit used may be influenced by it. Thallium viability study this afternoon. onversion Transaction, Provider Unknown - 05/08/2018 5:29 AM PDTFormatting of this note might be dif ferent from the original. Nurse Progress Note by Brianna Kaufman RN at 05/08/18528 Author: Brianna Kaufman RN Service: (none) Author Type: Registered Nurse Filed: 05/08/1831 Date of Service: 05/08/18528 Status: Signed Acid Cutter: Brianna Kaufman RN (Registered Nurse) Afebrile overnight, one soft BP 92/55, rechecked at 114/74 this AM. NSR with 1st degree blo ck on tele, HR 60-70s. No ectopy. Denies chest pain, SOB, otherwise. Heparin gtt titrated pe r protocol, see eMAR. Medicated x2 with PO [place] for back/neck chronic pain. Tolerating ambu lation multiple laps around unit independently. Hourly rounding otherwise uneventful, pt obs erved resting comfortably much of night. 24 hour and end of shift chart check complete. Brianna Kaufman RN 05/08/2018 5:30 AM onver neema Transaction, Provider Unknown - 05/07/2018 5:51 PM PDT Nurse Progress Note by Nisa Kulkarni RN at 05/07/181750 Author: Nisa Kulkarni RN Service: (none) Author Type: Registered Nurse Filed: 05/07/181751 Date of Service: 05/07/181750 Status: Signed Acid Cutter: Nisa Kulkarni RN (Registered Nurse) End of shift chart review complete. Tammy Day MD - 05/07/2018 2:50 PM PDT Progress Notes by Tammy Gorman MD at 05/07/181449 Author: Tammy Gorman MD Service: Hospitalist Author Type: Physician Filed: 05/07/18 1456 Date of Service: 05/07/181449 Status: Signed Acid Cutter: Tammy Gorman MD (Physician) [facility] Service: Hospitalist Progress Note Hospital Day: LOS: 6 days SUBJECTIVE Patient Summary: 62-year-old male with history of hyperlipidemia, COPD, previous smok er, chronic systolic congestive heart failure, ischemic cardiomyopathy EF of 30 percent stat us post defibrillator, coronary artery disease ST elevation NC in 03/2017 status post stent l eft main to LAD and left circumflex, left atrial clot previously on Coumadin, recent admissi on in another institution on 10/2007 for pneumonia and transferred to [facility] for unstable angin a status post ANY who presented with sudden onset of shortness of breath at [facility]. She was subsequently transferred to [facility] for further evaluation and management. Initia l troponin came back marginally high at 0.613. BNP is also high at 412. His troponin trended up. He was initially treated with Lasix and DuoNeb at [facility] with improvement of symptom s. Cardiology, Dr. Hansen was consulted. Echocardiogram was done which showed an EF of 25-30 percent. [place] is akinetic. Stress test was done revealing decreased uptake on stress and re st of the anterior wall, septum and apex consistent with infarct. The dilatation of the left ventricular cavity consistent with ischemic cardiomyopathy considered as high risk. Left ve ntricular ejection fraction is 80 percent. Sleep apnea also thought to be contributing to th e shortness of breath. Patient developed new nonsustained V. tach. Subsequently, he underwen t left coronary angiogram revealing in-stent restenosis in the distal left main and left ant erior descending, left circumflex area. Since drug-eluting stents were used a year ago, card iology did not think that restenting is the best approach. Cardiothoracic surgery was consul macho for further input. Events Overnight: 05/03/2018 Seen and examined patient. Over all, he is symptom free. No chest pain, no shortn ess of breath. He is off oxygen at room air speaking in full sentences. Her telemetry report , positive runs of V. tach. 05/04/2018 Seen and examined patient. He is currently asymptomatic. 05/05/2018 Seen and examined patient. Very independent and ambulatory. Denies any shortness of breath or chest pain. Less episodes of nonsustained V. tach overnight since starting amio darone. 05/06/2018 Seen and examined patient. Currently asymptomatic. 05/07/2018 Seen and examined patient. Long discussion about treatment plans. Currently asymp tomatic. Scheduled Medications amiodarone 400 mg Oral TID aspirin 81 mg Oral Daily with breakfast atorvastatin 80 mg Oral Nightly enoxaparin 40 mg Subcutaneous Q24H famotidine 20 mg Oral BID furosemide 20 mg Oral Daily gabapentin 300 mg Oral TID insulin lispro (human) 0-3 Units Subcutaneous Nightly insulin lispro (human) 0-6 Units Subcutaneous TID AC melatonin 3 mg Oral Nightly metoprolol 25 mg Oral Daily multivitamin with minerals 1 tablet Oral Daily pantoprazole 40 mg Oral BID sacubitril-valsartan 1 tablet Oral BID sodium chloride 10 mL Intravenous Q8H Continuous Infusions dextrose heparin 50 units/mL 12.58 Units/kg/hr (05/07/18 1339) PRN Medications acetaminophen OR acetaminophen, dextrose, dextrose, dextrose, glucagon, glucagon, hepar in (porcine) 5000 unit/0.5mL, heparin (porcine) 5000 unit/0.5mL, HYDROcodone-acetaminophen, nitroGLYCERIN, ondansetron OR ondansetron, perflutren lipid microspheres, polyethylene g lycol, regadenoson, sodium chloride 0.9 %, traMADol, zolpidem OBJECTIVE Vital Signs: Vitals: 05/07/18 0332 05/07/18 0524 05/07/18 0748 05/07/18 1138 BP: 96/55 107/66 107/64 BP Location: Right upper arm Right upper arm Right upper arm Pulse: 62 67 67 Resp: Temp: 98.2 F (36.8 C) 97.5 F (36.4 C) 97.7 F (36.5 C) TempSrc: Oral Oral Oral SpO2: 94% 94% 96% Weight: 96 kg (211 lb 10.3 oz) Height: Physical Exam General appearance: alert, appears stated age and cooperative. Mildly obese, no distress, v selena interactive, speaking in full sentences. Independent and ambulatory Head: Normocephalic, without obvious abnormality, atraumatic Neck: no adenopathy, no carotid bruit, no JVD, supple, symmetrical, trachea midline and thy roid not enlarged, symmetric, no tenderness/mass/nodules Lungs: clear to auscultation bilaterally Heart: regular rate and rhythm, S1, S2 normal, no murmur, click, rub or gallop Abdomen: soft, non-tender; bowel sounds normal; no masses, no organomegaly Musculoskeletal: There is no redness, warmth, or swelling of the joints. Limited range of motion noted. Motor strength is 5 out of 5 all extremities bilaterally. Tone is normal. Extremities: extremities normal, atraumatic, no cyanosis or edema Pulses: 2+ and symmetric Skin: Skin color, texture, turgor normal. No rashes or lesions Lymph nodes: Cervical, supraclavicular, and axillary nodes normal. DATA, personally reviewed Recent Labs Lab 05/06/18 0449 05/04/18 0851 05/04/18 0359 05/03/18 0512 WBC 8.31 7.79 6.52 6.33 HGB 14.7 14.4 13.9 13.3 HCT 42.0 42.4 40.1 38.9* PLT 176 161 140* 142* NEUTOPHILPCT 64.99 -- 73.12 67.96 MONOPCT 6.44 -- 8.35 9.12 Recent Labs Lab 05/06/18 0449 05/04/18 0359 05/03/18 0512 05/01/18 0815 NA 139 139 143 < > 140 K 4.4 4.3 4.4 < > 4.5 CL 105 107 110* < > 107 CO2 26 22* 24 < > 24 BUN 25 27* 29* < > 27* CREATININE 1.6* 1.5* 1.4* < > 1.8* PROT -- -- 7.0 -- 7.2 BILITOT -- -- 0.4 -- 0.4 ALT -- -- 30 -- 20 AST -- -- 22 -- 13 < > = values in this interval not displayed. Phosphorus: Lab Results Component Value Date PHOS 4.6 05/06/2018 Recent Labs Lab 05/04/18 0359 05/02/18 0437 MG 2.4 2.5* Recent Labs Lab 05/07/18 1252 05/07/18 0708 05/06/18 2356 05/04/18 0851 05/01/18 0815 APTT 41* 46* 60* < > 30 32 INR -- -- -- -- 1.1 1.0 < > = values in this interval not displayed. Recent Labs Lab 05/02/18 0437 TSH 1.130 Recent Labs Lab 05/01/18 1805 05/01/18 1141 05/01/18 0815 CKTOTAL -- -- 67 TROPONINI 0.664* 0.678* 0.613* CKMBINDEX -- -- 3.9 Component Latest Ref Rng & Units 05/01/2018 05/02/2018 05/03/2018 8:15 AM 4:37 AM 5:12 AM BRAIN NATRIURETIC PEPTIDE 0 - 100 pg/mL 412 (H) 246 (H) 230 (H) Radiology, personally reviewed Xr Chest Pa And Lateral Result Date: 05/01/2018 Left midlung platelike atelectasis. Lungs are otherwise clear. Nm Myocardial Perfusion Spect (stress And Rest) Result Date: 05/02/2018 1. Decreased uptake on stress and rest of the anterior wall, septum and apex consistent wi th infarct. Dilation of the left ventricular cavity consistent with ischemic cardiomyopathy. (High risk) 2. Left ventricular ejection fraction is calculated at 18%. Risk stratificatio n according to the [place] [employer] and [place] [employer] Scientific Statement. Circulation (2008); 118: p 1497-518. Definitions: Low risk: 1. Normal or small my ocardial perfusion defect at rest or with stress.* 2. No change of resting wall motion abnor malities during stress.* Intermediate risk: 1. Mild/moderate resting left ventricular dysfun ction (LVEF = 35% to 49%). 2. Stress-induced moderate perfusion defect without left ventricu lar dilation or increased lung intake. High risk: 1. Severe resting left ventricular dysfunc tion (exercise LVEF < 35%). 2. Severe exercise left ventricular dysfunction (exercise LVEF < 35%). 3. Stress-induced large perfusion defect (particularly if anterior). 4. Stress-induce d multiple perfusion defects of moderate size. 5. Large, fixed perfusion defect with left ve ntricular dilation. 6. Stress-induced moderate perfusion defect with LV dilation. * Although the published data are limited, patients with these findings will probably not be at low ri sk in the presence of either a high risk treadmill score or severe resting left ventricular dysfunction (LVEF < 35%). LEM LIST Principal Problem: CAD (coronary artery disease) Active Problems: COPD (chronic obstructive pulmonary disease) ([facility]) Benign essential hypertension Hyperlipidemia Dyspnea Acute on chronic systolic congestive heart failure (HCC) Acute renal failure superimposed on stage 3 chronic kidney disease ([facility]) ASSESSMENT & PLAN CAD (coronary artery disease), in-stent restenosis distal left main, left anterior descen ding and left circumflex -Noted restenosis of the stents done one year prior. -Appreciate input from cardiology. -Appreciate input from cardiothoracic surgery. Discussed with Dr. Garcia, because the gela ent had cardiogenic shock that required ECMO in 2017, it was recommended that the patient be transferred over to [facility] since the technology is not available in this facility. Discussed with on-call cardiology at [facility], he did not see the need for inpatient inpatient transfer a t this time. Patient can follow-up as an outpatient and maybe do elective CABG if needed. -Tried to do more research about the cardiac history. Apparently, in 10/2017 and the patient had stenting of the in-stent restenosis of the LAD, there was a viability study with unfavo rable result. CABG was not an option during that time. -Dr. Deisy Hansen ordered a viability study to be done on 05/11/2018. -Off Plavix. -Continue heparin drip. -Episodic V. tach now improved with amiodarone thought to be secondary to ischemia. Dyspnea -This could be multifactorial but clinically resolve. -Acute congestive heart failure with mild elevation in BNP might have contributed. Patient responded well to diuresis. -Possible anginal equivalent considering restenosis of the prior stents. -Symptoms now resolved. COPD (chronic obstructive pulmonary disease) (HCC) -Clinically, does not appear to be in exacerbation. -We will monitor closely. Benign essential hypertension -Blood pressures are within acceptable range. -Patient is on entresto mainly for his cardiomyopathy but this will also lower blood pressu res. -Continue metoprolol 25 XL. Hyperlipidemia -Continue statin. Acute on chronic systolic congestive heart failure (HCC) -Overall, this is mostly improved. -Patient is on Lasix 20 mg twice a day. -Echo reviewed. EF between 25-30 percent. -Limit salt. Acute renal failure superimposed on stage 3 chronic kidney disease (HCC) -Creatinine is stable. -There could be a component of cardiorenal syndrome. -Avoid nephrotoxins but will continue entresto and low-dose furosemide and. -Appreciate nephrology input. Type II diabetes -Continue low range Humalog correctional sliding scale. -Hold metformin in the meantime. -Patient has not received any coverage of insulin except for one episode. We will change to cardiac diet only. DVT prophylaxis: In place. GI prophylaxis: In place. Disposition: Inpatient. Code Status: Full Code Dictation and stogie packer or software, [employer]View, used which may contain error for similar s ounding words even after review. Personal communication requested for any clarification. TAMMY GORMAN MD 05/07/2018 2:50 PM onversion Transact ion, Provider Unknown - 05/07/2018 2:02 PM PDTFormatting of this note might be different fr om the original. Nurse Progress Note by Nisa Kulkarni RN at 05/07/181401 Author: Nisa Kulkarni RN Service: (none) Author Type: Registered Nurse Filed: 05/07/18 1403 Date of Service: 05/07/181401 Status: Signed Acid Cutter: Nisa Kulkarni RN (Registered Nurse) Heparin drip running at 12.58. He has not been therapeutic. Next aptt draw 1930. Roberta , Deisy Haile MD - 05/07/2018 9:21 AM PDT Progress Notes by Deisy Hansen MD at 05/07/18920 Author: Deisy Hansen MD Service: (none) Author Type: Physician Filed: 05/07/18931 Date of Service: 05/07/18920 Status: Signed Acid Cutter: Deisy Hansen MD (Physician) Spent a considerable amount of time looking at old films and trying to glean what happened in past. In March of 2017 he had an acute mi with a tight distal LM, atretic LAD and tight ostial LCX . PCI of Lm to lad and lcx was done in [place]. Complicated by LM occlusion, arrest. He was flown to [facility] and was on ECMO at that time due to the preceding event.Details are sketch y as there are no notes on care everywhere (that I can find). In September of this year he had a repeat cath in [place], pt is not sure why, care every where says he was transferred from [facility] with dyspnea and had elevated enzymes. Found In stent restenosis in LCX. Transferred to [facility]. Had no coronary intervention, but did have AI CD. Again notes are not available to me. I spoke with a [facility] from [facility] last night who declined transport as unnecessary and offered t o see him as an outpatient. I think we need to see records from [facility] as to why he was not operated on in October. Woap nolan like DC summary from [facility] both from 03/23 and 10/25. However they may not include the information we desire. I'm not sure why he would need ecmo again as the situation that led to that was an emergenc y procedure that blocked his LM. That is unlikely to happen in surgery. Pt is fine, but confused. Will check viability study today. onversion Transaction, Provider Unknown - 05/06/2018 6:46 PM PDTFormatting of this note might be dif ferent from the original. Nurse Progress Note by Nisa Kulkarni RN at 05/06/181845 Author: Nisa Kulkarni RN Service: (none) Author Type: Registered Nurse Filed: 05/06/181847 Date of Service: 05/06/181845 Status: Signed Acid Cutter: Nisa Kulkarni RN (Registered Nurse) Aptt therapeutic X 1. Next aptt is at 2400. onver neema Transaction, Provider Unknown - 05/06/2018 6:27 PM PDT Nurse Progress Note by Nisa Kulkarni RN at 05/06/181826 Author: Nisa Kulkarni RN Service: (none) Author Type: Registered Nurse Filed: 05/06/181827 Date of Service: 05/06/181826 Status: Signed Acid Cutter: Nisa Kulkarni RN (Registered Nurse) End of Shift report complete. onver neema Transaction, Provider Unknown - 05/06/2018 11:07 AM PDT Case Management by Analisa August RN at 05/06/181106 Author: Analisa August RN Service: (none) Author Type: Registered Nurse Filed: 05/06/181107 Date of Service: 05/06/181106 Status: Signed Acid Cutter: Analisa August RN (Registered Nurse) CM attended AM rounds: per nursing, CABG with Dr. Garcia scheduled for 05/11 (pt was on Plav ix). Pt will stay here until surgery. Analisa August Tammy Day MD - 05/06/2018 10:04 AM PDT Progress Notes by Tammy Gorman MD at 05/06/18 1004 Author: Tammy Gorman MD Service: Hospitalist Author Type: Physician Filed: 05/06/18 7080 Date of Service: 05/06/18 1004 Status: Addendum Acid Cutter: Tammy Gorman MD (Physician) Related Notes: Original Note by Tammy Gorman MD (Physician) filed at 05/06/18 1928 [facility] Service: Hospitalist Progress Note Hospital Day: LOS: 5 days SUBJECTIVE Patient Summary: 62-year-old male with history of hyperlipidemia, COPD, previous smok er, chronic systolic congestive heart failure, ischemic cardiomyopathy EF of 30 percent stat us post defibrillator, coronary artery disease ST elevation NC in 03/2017 status post stent l eft main to LAD and left circumflex, left atrial clot previously on Coumadin, recent admissi on in another institution on 10/2007 for pneumonia and transferred to [facility] for unstable angin a status post ANY who presented with sudden onset of shortness of breath at [facility]. She was subsequently transferred to [facility] for further evaluation and management. Initia l troponin came back marginally high at 0.613. BNP is also high at 412. His troponin trended up. He was initially treated with Lasix and DuoNeb at [facility] with improvement of symptom s. Cardiology, Dr. Hansen was consulted. Echocardiogram was done which showed an EF of 25-30 percent. [place]ron[place] is akinetic. Stress test was done revealing decreased uptake on stress and re st of the anterior wall, septum and apex consistent with infarct. The dilatation of the left ventricular cavity consistent with ischemic cardiomyopathy considered as high risk. Left ve ntricular ejection fraction is 80 percent. Sleep apnea also thought to be contributing to th e shortness of breath. Patient developed new nonsustained V. tach. Subsequently, he underwen t left coronary angiogram revealing in-stent restenosis in the distal left main and left ant erior descending, left circumflex area. Since drug-eluting stents were used a year ago, card iology did not think that restenting is the best approach. Cardiothoracic surgery was consul macho for further input. Events Overnight: 05/03/2018 Seen and examined patient. Over all, he is symptom free. No chest pain, no shortn ess of breath. He is off oxygen at room air speaking in full sentences. Her telemetry report , positive runs of V. tach. 05/04/2018 Seen and examined patient. He is currently asymptomatic. 05/05/2018 Seen and examined patient. Very independent and ambulatory. Denies any shortness of breath or chest pain. Less episodes of nonsustained V. tach overnight since starting amio darone. 05/06/2018 Seen and examined patient. Currently asymptomatic. Scheduled Medications amiodarone 400 mg Oral TID aspirin 81 mg Oral Daily with breakfast atorvastatin 80 mg Oral Nightly enoxaparin 40 mg Subcutaneous Q24H famotidine 20 mg Oral BID furosemide 20 mg Oral Daily gabapentin 300 mg Oral TID insulin lispro (human) 0-3 Units Subcutaneous Nightly insulin lispro (human) 0-6 Units Subcutaneous TID AC melatonin 3 mg Oral Nightly metoprolol 25 mg Oral Daily multivitamin with minerals 1 tablet Oral Daily pantoprazole 40 mg Oral BID sacubitril-valsartan 1 tablet Oral BID sodium chloride 10 mL Intravenous Q8H Continuous Infusions dextrose heparin 50 units/mL 10.582 Units/kg/hr (05/06/18 0525) PRN Medications acetaminophen OR acetaminophen, dextrose, dextrose, dextrose, glucagon, glucagon, hepar in (porcine) 5000 unit/0.5mL, heparin (porcine) 5000 unit/0.5mL, HYDROcodone-acetaminophen, nitroGLYCERIN, ondansetron OR ondansetron, perflutren lipid microspheres, polyethylene g lycol, regadenoson, sodium chloride 0.9 %, traMADol, zolpidem OBJECTIVE Vital Signs: Vitals: 05/06/18 0322 05/06/18 0759 05/06/18 0835 05/06/18 0839 BP: 99/65 109/58 107/64 BP Location: Right upper arm Right upper arm Pulse: 72 74 Resp: 16 16 Temp: 97.6 F (36.4 C) 97.6 F (36.4 C) TempSrc: Oral Oral SpO2: 98% Weight: 95 kg (209 lb 7 oz) Height: Physical Exam General appearance: alert, appears stated age and cooperative. Mildly obese, no distress, v selena interactive, speaking in full sentences. Independent and ambulatory Head: Normocephalic, without obvious abnormality, atraumatic Neck: no adenopathy, no carotid bruit, no JVD, supple, symmetrical, trachea midline and thy roid not enlarged, symmetric, no tenderness/mass/nodules Lungs: clear to auscultation bilaterally Heart: regular rate and rhythm, S1, S2 normal, no murmur, click, rub or gallop Abdomen: soft, non-tender; bowel sounds normal; no masses, no organomegaly Musculoskeletal: There is no redness, warmth, or swelling of the joints. Limited range of motion noted. Motor strength is 5 out of 5 all extremities bilaterally. Tone is normal. Extremities: extremities normal, atraumatic, no cyanosis or edema Pulses: 2+ and symmetric Skin: Skin color, texture, turgor normal. No rashes or lesions Lymph nodes: Cervical, supraclavicular, and axillary nodes normal. DATA, personally reviewed Recent Labs Lab 05/06/1844805/04/18 0851 05/04/189 05/03/18 0512 WBC 8.31 7.79 6.52 6.33 HGB 14.7 14.4 13.9 13.3 HCT 42.0 42.4 40.1 38.9* PLT 176 161 140* 142* NEUTOPHILPCT 64.99 -- 73.12 67.96 MONOPCT 6.44 -- 8.35 9.12 Recent Labs Lab 05/06/1844805/04/189 05/03/18 0512 05/01/18 0815 NA 139 139 143 < > 140 K 4.4 4.3 4.4 < > 4.5 CL 105 107 110* < > 107 CO2 26 22* 24 < > 24 BUN 25 27* 29* < > 27* CREATININE 1.6* 1.5* 1.4* < > 1.8* PROT -- -- 7.0 -- 7.2 BILITOT -- -- 0.4 -- 0.4 ALT -- -- 30 -- 20 AST -- -- 22 -- 13 < > = values in this interval not displayed. Phosphorus: Lab Results Component Value Date PHOS 4.6 05/06/2018 Recent Labs Lab 05/04/1835805/02/18 0437 MG 2.4 2.5* Recent Labs Lab 05/06/18 0449 05/05/18 0417 05/04/18 2215 05/04/18 0851 05/01/18 0815 APTT 59* 55* 49* < > 30 32 INR -- -- -- -- 1.1 1.0 < > = values in this interval not displayed. Recent Labs Lab 05/02/18 0437 TSH 1.130 Recent Labs Lab 05/01/18 1805 05/01/18 1141 05/01/18 0815 CKTOTAL -- -- 67 TROPONINI 0.664* 0.678* 0.613* CKMBINDEX -- -- 3.9 Component Latest Ref Rng & Units 05/01/2018 05/02/2018 05/03/2018 8:15 AM 4:37 AM 5:12 AM BRAIN NATRIURETIC PEPTIDE 0 - 100 pg/mL 412 (H) 246 (H) 230 (H) Radiology, personally reviewed Xr Chest Pa And Lateral Result Date: 05/01/2018 Left midlung platelike atelectasis. Lungs are otherwise clear. Nm Myocardial Perfusion Spect (stress And Rest) Result Date: 05/02/2018 1. Decreased uptake on stress and rest of the anterior wall, septum and apex consistent wi th infarct. Dilation of the left ventricular cavity consistent with ischemic cardiomyopathy. (High risk) 2. Left ventricular ejection fraction is calculated at 18%. Risk stratificatio n according to the [place] [employer] and [place] [employer] Scientific Statement. Circulation (2008); 118: p 1497-518. Definitions: Low risk: 1. Normal or small my ocardial perfusion defect at rest or with stress.* 2. No change of resting wall motion abnor malities during stress.* Intermediate risk: 1. Mild/moderate resting left ventricular dysfun ction (LVEF = 35% to 49%). 2. Stress-induced moderate perfusion defect without left ventricu lar dilation or increased lung intake. High risk: 1. Severe resting left ventricular dysfunc tion (exercise LVEF < 35%). 2. Severe exercise left ventricular dysfunction (exercise LVEF < 35%). 3. Stress-induced large perfusion defect (particularly if anterior). 4. Stress-induce d multiple perfusion defects of moderate size. 5. Large, fixed perfusion defect with left ve ntricular dilation. 6. Stress-induced moderate perfusion defect with LV dilation. * Although the published data are limited, patients with these findings will probably not be at low ri sk in the presence of either a high risk treadmill score or severe resting left ventricular dysfunction (LVEF < 35%). LEM LIST Principal Problem: CAD (coronary artery disease) Active Problems: COPD (chronic obstructive pulmonary disease) ([facility]) Benign essential hypertension Hyperlipidemia Dyspnea Acute on chronic systolic congestive heart failure (HCC) Acute renal failure superimposed on stage 3 chronic kidney disease ([facility]) ASSESSMENT & PLAN CAD (coronary artery disease), in-stent restenosis distal left main, left anterior descen ding and left circumflex -Noted restenosis of the stents done one year prior. -Appreciate input from cardiology. -Appreciate input from cardiothoracic surgery. Discussed with Dr. Garcia, because the gela ent had CABG that required ECMO in 2017, it was recommended that the patient be transferred over to [facility] since the technology is not available in this facility. We will start facilita ting transfer, contacted [facility] transfer center. -Off Plavix. -Continue heparin drip. -Episodic V. tach now improved with amiodarone thought to be secondary to ischemia. Dyspnea -This could be multifactorial but clinically resolve. -Acute congestive heart failure with mild elevation in BNP might have contributed. Patient responded well to diuresis. -Possible anginal equivalent considering restenosis of the prior stents. -Symptoms now resolved. COPD (chronic obstructive pulmonary disease) ([facility]) -Clinically, does not appear to be in exacerbation. -We will monitor closely. Benign essential hypertension -Blood pressures are within acceptable range. -Patient is on entresto mainly for his cardiomyopathy but this will also lower blood pressu res. -Continue metoprolol 25 XL. Hyperlipidemia -Continue statin. Acute on chronic systolic congestive heart failure (HCC) -Overall, this is mostly improved. -Patient is on Lasix 20 mg twice a day. -Echo reviewed. EF between 25-30 percent. -Limit salt. Acute renal failure superimposed on stage 3 chronic kidney disease ([facility]) -Creatinine is stable. -There could be a component of cardiorenal syndrome. -Avoid nephrotoxins but will continue entresto and low-dose furosemide and. -Appreciate nephrology input. Type II diabetes -Continue low range Humalog correctional sliding scale. -Hold metformin in the meantime. DVT prophylaxis: In place. GI prophylaxis: In place. Disposition: Inpatient. Code Status: Full Code Dictation and stogie packer or software, AudienceView, used which may contain error for similar s ounding words even after review. Personal communication requested for any clarification. TAMMY GORMAN MD 05/06/2018 10:04 AM avage, Deisy Haile MD - 05/06/2018 8:42 AM PDTFormatting of this note might be different from the orig inal. Progress Notes by Deisy Hansen MD at 05/06/18841 Author: Deisy Hansen MD Service: (none) Author Type: Physician Filed: 05/06/18842 Date of Service: 05/06/18841 Status: Signed Acid Cutter: Deisy Hansen MD (Physician) [facility] Service: Cardiology Progress Note Hospital Day: LOS: 5 days Post-Op Day: * No surgery date entered * SUBJECTIVE Patient Summary: 62 WM with CAD Events Overnight: none OBJECTIVE Vital Signs: BP 107/64 | Pulse 74 | Temp 97.6 F (36.4 C) (Oral) | Resp 16 | Ht 1.753 m (5' 9") | Wt 95 kg (209 lb 7 oz) | SpO2 98% | BMI 30.93 kg/m Physical Exam GENERAL: Pleasant, talkative in no apparent distress CHEST: Good inspiratory effort with no crackles, ronchi, or wheezes. CARDIAC: No lifts/heaves. PMI is discrete and non-displaced. Normal S1 and S2. No murmur s, rubs or gallops. ABDOMEN: Soft, non-tender, nondistended with normal, active bowel sounds. Normal abdominal pulsation without bruit. EXTREMITIES: No clubbing, cyanosis, or edema. PULSES: Right: radial 2+, femoral 2+ DP 2+, PT 2+ Left: radial 2+, femoral 2+ DP 2+, PT 2+ DATA 1. Recent Labs Lab 05/06/18 0449 05/04/18 0851 05/04/18 0359 05/03/18 0512 05/01/18 1805 05/01/18 1141 05/01/18 0815 CKTOTAL -- -- -- -- -- -- -- 67 CKMB -- -- -- -- -- -- -- 2.6 TROPONINI -- -- -- -- -- 0.664* 0.678* 0.613* HGB 14.7 14.4 13.9 13.3 < > -- -- 13.8 WBC 8.31 7.79 6.52 6.33 < > -- -- 7.26 CREATININE 1.6* -- 1.5* 1.4* < > -- -- 1.8* < > = values in this interval not displayed. ASSESSMENT & PLAN Feels well. Rhythm stable. Await CABG. DEISY HANSEN MD 05/06/2018 Luis Regan MD - 05/06/2018 8:37 AM PDTFormatting of this note might be different from the origin al. Progress Notes by Mario Alberto Brito MD at 05/06/18836 Author: Mario Alberto Brito MD Service: Nephrology Author Type: Physician Filed: 05/06/181907 Date of Service: 05/06/18836 Status: Signed Acid Cutter: Mario Alberto Brito MD (Physician) Hospital Problem List: Principal Problem: CAD (coronary artery disease) Active Problems: COPD (chronic obstructive pulmonary disease) (HCC) Benign essential hypertension Hyperlipidemia Dyspnea Acute on chronic systolic congestive heart failure (HCC) Acute renal failure superimposed on stage 3 chronic kidney disease (HCC) The patient says that he feels 'fine' today. He denies any CP or SOB. His urine output 370 0 ml/24 hrs. The following portions of the patient's history were reviewed and updated as appropriate: l aboratory data, radiologic studies, allergies, current medications, and problem list. amiodarone 400 mg Oral TID aspirin 81 mg Oral Daily with breakfast atorvastatin 80 mg Oral Nightly enoxaparin 40 mg Subcutaneous Q24H famotidine 20 mg Oral BID furosemide 20 mg Oral Daily gabapentin 300 mg Oral TID insulin lispro (human) 0-3 Units Subcutaneous Nightly insulin lispro (human) 0-6 Units Subcutaneous TID AC melatonin 3 mg Oral Nightly metoprolol 25 mg Oral Daily multivitamin with minerals 1 tablet Oral Daily pantoprazole 40 mg Oral BID sacubitril-valsartan 1 tablet Oral BID sodium chloride 10 mL Intravenous Q8H dextrose heparin 50 units/mL 10.582 Units/kg/hr (05/06/18 0525) P.E. BP 109/58 (BP Location: Right upper arm) | Pulse 74 | Temp 97.6 F (36.4 C) (Oral) | Resp 16 | Ht 1.753 m (5' 9") | Wt 95 kg (209 lb 7 oz) | SpO2 98% | BMI 30.93 kg/m General appearance: Pleasant, not in acute distress. Lungs: Good A/E to auscultation bilaterally and resonant. There are no wheezes. Heart: Regular rate and rhythm without any rub, gallop. Abdominal exam: Soft and nontender with normal bowel sounds. Extremities: Warm to touch with no leg edema. There is no cyanosis or clubbing. Neurological: Awake, alert. There is no asterixis. Lab Results Component Value Date BUN 25 05/06/2018 CREATININE 1.6 (H) 05/06/2018 EGFR 44 (L) 05/06/2018 NA 139 05/06/2018 K 4.4 05/06/2018 CL 105 05/06/2018 CO2 26 05/06/2018 CA 9.3 05/06/2018 PHOS 4.6 05/06/2018 MG 2.4 05/04/2018 ALB 3.7 05/06/2018 HGB 14.7 05/06/2018 I/O last 3 completed shifts: In: 1498 [P.O.:1236; I.V.:262] Out: 3750 [Urine:3750] I/O this shift: In: - Out: 500 [Urine:500] Assessment/Recommendations: Mr. Mckeon is a 62 y.o. male patient with stage III CKD in the setting of longstanding H TN, NSAIDs he is scheduled to CABG in the next few days CKD III Cre at baseline Hold ACEI/ARB for now Check renal panel in am Renal US Cont Lasix to 20 mg daily Avoid nephrotoxins Strict I&O Daily wt HTN Controlled now Metabolic Acidosis Resolved I discussed with the primary team team the case at the time of this encounter. Mario Alberto Brito MD FACP onversion Transactio n, Provider Unknown - 05/06/2018 5:31 AM PDT Nurse Progress Note by Kathryn Adler RN at 05/06/18530 Author: Kathryn Adler RN Service: (none) Author Type: Registered Nurse Filed: 05/06/1832 Date of Service: 05/06/18530 Status: Signed Acid Cutter: Kathryn Adler RN (Registered Nurse) End of shift chart review done. KATHRYN ADLER RN Mario Alberto Regan MD - 05/05/2018 6:54 PM PDTFormatting of this note might be different from the or iginal. Progress Notes by Mario Alberto Brito MD at 05/05/181853 Author: Mario Alberto Brito MD Service: Nephrology Author Type: Physician Filed: 05/05/18 7401 Date of Service: 05/05/181853 Status: Signed Acid Cutter: Mario Alberto Brito MD (Physician) Hospital Problem List: Principal Problem: CAD (coronary artery disease) Active Problems: COPD (chronic obstructive pulmonary disease) (HCC) Benign essential hypertension Hyperlipidemia Dyspnea Acute on chronic systolic congestive heart failure (HCC) Acute renal failure superimposed on stage 3 chronic kidney disease (HCC) The patient says that he feels 'fine' today. He denies any CP or SOB. His urine output 190 0 ml/24 hrs. The following portions of the patient's history were reviewed and updated as appropriate: l aboratory data, radiologic studies, allergies, current medications, and problem list. amiodarone 400 mg Oral TID aspirin 81 mg Oral Daily with breakfast atorvastatin 80 mg Oral Nightly enoxaparin 40 mg Subcutaneous Q24H famotidine 20 mg Oral BID furosemide 20 mg Oral Daily gabapentin 300 mg Oral TID insulin lispro (human) 0-3 Units Subcutaneous Nightly insulin lispro (human) 0-6 Units Subcutaneous TID AC melatonin 3 mg Oral Nightly metoprolol 25 mg Oral Daily multivitamin with minerals 1 tablet Oral Daily pantoprazole 40 mg Oral BID sacubitril-valsartan 1 tablet Oral BID sodium chloride 10 mL Intravenous Q8H dextrose heparin 50 units/mL 12.582 Units/kg/hr (05/05/18 0605) P.E. BP 103/52 (BP Location: Right upper arm) | Pulse 65 | Temp 97.8 F (36.6 C) (Oral) | Resp 16 | Ht 1.753 m (5' 9") | Wt 95.4 kg (210 lb 5.1 oz) | SpO2 94% | BMI 31.06 kg/m General appearance: Pleasant, not in acute distress. Lungs: Good A/E to auscultation bilaterally and resonant. There are no wheezes. Heart: Regular rate and rhythm without any rub, gallop. Abdominal exam: Soft and nontender with normal bowel sounds. Extremities: Warm to touch with no leg edema. There is no cyanosis or clubbing. Neurological: Awake, alert. There is no asterixis. Lab Results Component Value Date BUN 27 (H) 05/04/2018 CREATININE 1.5 (H) 05/04/2018 EGFR 47 (L) 05/04/2018 NA 139 05/04/2018 K 4.3 05/04/2018 CL 107 05/04/2018 CO2 22 (L) 05/04/2018 CA 8.9 05/04/2018 PHOS 5.1 (H) 05/04/2018 MG 2.4 05/04/2018 ALB 3.4 05/04/2018 HGB 14.4 05/04/2018 I/O last 3 completed shifts: In: 2462.6 [P.O.:1536; I.V.:926.6] Out: 2880 [Urine:2880] I/O this shift: In: - Out: 1000 [Urine:1000] Assessment/Recommendations: Mr. Mckeon is a 62 y.o. male patient with stage III CKD in the setting of longstanding H TN, NSAIDs he is scheduled to CABG in the next few days CKD III Cre at baseline Hold ACEI/ARB for now Check renal panel in am Renal US Cont Lasix to 20 mg daily Avoid nephrotoxins Strict I&O Daily wt HTN Controlled now Metabolic Acidosis I will start Sodium bicarb 650 mg TID if bicarb is < 22 I discussed with the primary team team the case at the time of this encounter. Mario Alberto Brito MD FACP onversion Transactio n, Provider Unknown - 05/05/2018 5:43 PM PDT Nurse Progress Note by Nisa Kulkarni RN at 05/05/181742 Author: Nisa Kulkarni RN Service: (none) Author Type: Registered Nurse Filed: 05/05/181743 Date of Service: 05/05/181742 Status: Signed Acid Cutter: Nisa Kulkarni RN (Registered Nurse) End of shift review complete. avage , Deisy Haile MD - 05/05/2018 8:52 AM PDT Progress Notes by Deisy Hansen MD at 05/05/18851 Author: Deisy Hansen MD Service: (none) Author Type: Physician Filed: 05/05/1853 Date of Service: 05/05/18851 Status: Signed Acid Cutter: Deisy Hansen MD (Physician) [facility] Service: Cardiology Progress Note Hospital Day: LOS: 4 days Post-Op Day: * No surgery found * SUBJECTIVE Patient Summary: 62 WM with CAD Events Overnight: none OBJECTIVE Vital Signs: BP 110/58 (BP Location: Right forearm) | Pulse 70 | Temp 97.6 F (36.4 C) (Oral) | R anaid 16 | Ht 1.753 m (5' 9") | Wt 95.4 kg (210 lb 5.1 oz) | SpO2 95% | BMI 31.06 kg/m Physical Exam GENERAL: Pleasant, talkative in no apparent distress CHEST: Good inspiratory effort with no crackles, ronchi, or wheezes. CARDIAC: No lifts/heaves. PMI is discrete and non-displaced. Normal S1 and S2. No murmur s, rubs or gallops. ABDOMEN: Soft, non-tender, nondistended with normal, active bowel sounds. Normal abdominal pulsation without bruit. EXTREMITIES: No clubbing, cyanosis, or edema. PULSES: Right: radial 2+, femoral 2+ DP 2+, PT 2+ Left: radial 2+, femoral 2+ DP 2+, PT 2+ DATA 1. Recent Labs Lab 05/04/18 0851 05/04/18 0359 05/03/18 0512 05/02/18 0437 05/01/18 1805 05/01/18 1141 05/01/18 0815 CKTOTAL -- -- -- -- -- -- 67 CKMB -- -- -- -- -- -- 2.6 TROPONINI -- -- -- -- 0.664* 0.678* 0.613* HGB 14.4 13.9 13.3 13.9 -- -- 13.8 WBC 7.79 6.52 6.33 6.84 -- -- 7.26 CREATININE -- 1.5* 1.4* 1.6* -- -- 1.8* ASSESSMENT & PLAN Feels well. Started Amiodarone yesterday and VT much less frequent. Will keep for 1 month post op. Await CABG. DEISY HANSEN MD 05/05/2018 Ferdinand Day MD - 05/05/2018 8:47 AM PDTFormatting of this note might be different from the orig inal. Progress Notes by Tammy Gorman MD at 05/05/18 7934 Author: Tammy Gorman MD Service: Hospitalist Author Type: Physician Filed: 05/05/18 1325 Date of Service: 05/05/1825 Status: Signed Acid Cutter: Tammy Gorman MD (Physician) [facility] Service: Hospitalist Progress Note Hospital Day: LOS: 4 days SUBJECTIVE Patient Summary: 62-year-old male with history of hyperlipidemia, COPD, previous smok er, chronic systolic congestive heart failure, ischemic cardiomyopathy EF of 30 percent stat us post defibrillator, coronary artery disease ST elevation NC in 03/2017 status post stent l eft main to LAD and left circumflex, left atrial clot previously on Coumadin, recent admissi on in another institution on 10/2007. for pneumonia and transferred to [facility] for unstable shirley na status post ANY who presented with sudden onset of shortness of breath at [facility]. She was subsequently transferred to [facility] for further evaluation and management. Initi al troponin came back marginally high at 0.613. BNP is also high at 412. His troponin trende d up. He was initially treated with Lasix and DuoNeb at [place] with improvement of sympto ms. Cardiology, Dr. Hansen was consulted. Echocardiogram was done which showed an EF of 25-3 0 percent. [place] is at kinetic. Stress test was done revealing decreased uptake on stress and rest of the anterior wall, septum and apex consistent with infarct. The dilatation of the l eft ventricular cavity consistent with ischemic cardiomyopathy considered as high risk. Left ventricular ejection fraction is 80 percent. Sleep apnea also thought to be contributing to the shortness of breath. Patient developed new nonsustained V. tach. Subsequently, he under went left coronary angiogram revealing in-stent restenosis in the distal left main and left anterior descending, left circumflex area. Since drug-eluting stents were used a year ago, c ardiology did not think that restenting is the best approach. Cardiothoracic surgery was con sulted for further input. Events Overnight: 05/03/2018 Seen and examined patient. Over all, he is symptom free. No chest pain, no shortn ess of breath. He is off oxygen at room air speaking in full sentences. Her telemetry report , positive runs of V. tach. 05/04/2018 Seen and examined patient. He is currently asymptomatic. 05/05/2018 Seen and examined patient. Very independent and ambulatory. Denies any shortness of breath or chest pain. Less episodes of nonsustained V. tach overnight since starting amio darone. Scheduled Medications amiodarone 400 mg Oral TID aspirin 81 mg Oral Daily with breakfast atorvastatin 80 mg Oral Nightly enoxaparin 40 mg Subcutaneous Q24H famotidine 20 mg Oral BID furosemide 20 mg Oral Daily gabapentin 300 mg Oral TID insulin lispro (human) 0-3 Units Subcutaneous Nightly insulin lispro (human) 0-6 Units Subcutaneous TID AC melatonin 3 mg Oral Nightly metoprolol 25 mg Oral Daily multivitamin with minerals 1 tablet Oral Daily pantoprazole 40 mg Oral BID sacubitril-valsartan 1 tablet Oral BID sodium chloride 10 mL Intravenous Q8H Continuous Infusions dextrose heparin 50 units/mL 12.582 Units/kg/hr (05/05/18 0605) PRN Medications acetaminophen OR acetaminophen, dextrose, dextrose, dextrose, glucagon, glucagon, hepar in (porcine) 5000 unit/0.5mL, heparin (porcine) 5000 unit/0.5mL, HYDROcodone-acetaminophen, nitroGLYCERIN, ondansetron OR ondansetron, perflutren lipid microspheres, polyethylene g lycol, regadenoson, sodium chloride 0.9 %, traMADol, zolpidem OBJECTIVE Vital Signs: Vitals: 05/04/18 2107 05/04/18 2342 05/05/18 0319 05/05/18 0717 BP: 150/88 117/64 129/77 110/58 BP Location: Left forearm Left forearm Right forearm Pulse: 76 70 Resp: 16 16 16 Temp: 97.7 F (36.5 C) 97.7 F (36.5 C) 97.6 F (36.4 C) TempSrc: Oral Oral Oral SpO2: 98% 99% 95% Weight: 95.4 kg (210 lb 5.1 oz) Height: Physical Exam General appearance: alert, appears stated age and cooperative. Mildly obese, no distress, v selena interactive, speaking in full sentences. Independent and ambulatory Head: Normocephalic, without obvious abnormality, atraumatic Neck: no adenopathy, no carotid bruit, no JVD, supple, symmetrical, trachea midline and thy roid not enlarged, symmetric, no tenderness/mass/nodules Lungs: clear to auscultation bilaterally Heart: regular rate and rhythm, S1, S2 normal, no murmur, click, rub or gallop Abdomen: soft, non-tender; bowel sounds normal; no masses, no organomegaly Musculoskeletal: There is no redness, warmth, or swelling of the joints. Limited range of motion noted. Motor strength is 5 out of 5 all extremities bilaterally. Tone is normal. Extremities: extremities normal, atraumatic, no cyanosis or edema Pulses: 2+ and symmetric Skin: Skin color, texture, turgor normal. No rashes or lesions Lymph nodes: Cervical, supraclavicular, and axillary nodes normal. DATA, personally reviewed Recent Labs Lab 05/04/18 0851 05/04/18 0359 05/03/18 0512 05/02/18 0437 WBC 7.79 6.52 6.33 6.84 HGB 14.4 13.9 13.3 13.9 HCT 42.4 40.1 38.9* 40.3 PLT 161 140* 142* 137* NEUTOPHILPCT -- 73.12 67.96 66.73 MONOPCT -- 8.35 9.12 8.20 Recent Labs Lab 05/04/18 0359 05/03/18 0512 05/02/18 0437 05/01/18 0815 NA 139 143 142 140 K 4.3 4.4 4.1 4.5 CL 107 110* 107 107 CO2 22* 24 24 24 BUN 27* 29* 29* 27* CREATININE 1.5* 1.4* 1.6* 1.8* PROT -- 7.0 -- 7.2 BILITOT -- 0.4 -- 0.4 ALT -- 30 -- 20 AST -- 22 -- 13 Phosphorus: Lab Results Component Value Date PHOS 5.1 (H) 05/04/2018 Recent Labs Lab 05/04/18 0359 05/02/18 0437 MG 2.4 2.5* Recent Labs Lab 05/05/18 0417 05/04/18 2215 05/04/18 1525 05/04/18 0851 05/01/18 0815 APTT 55* 49* 39* 30 32 INR -- -- -- 1.1 1.0 Recent Labs Lab 05/02/18 0437 TSH 1.130 Recent Labs Lab 05/01/18 1805 05/01/18 1141 05/01/18 0815 CKTOTAL -- -- 67 TROPONINI 0.664* 0.678* 0.613* CKMBINDEX -- -- 3.9 Radiology, personally reviewed Xr Chest Pa And Lateral Result Date: 05/01/2018 Left midlung platelike atelectasis. Lungs are otherwise clear. Nm Myocardial Perfusion Spect (stress And Rest) Result Date: 05/02/2018 1. Decreased uptake on stress and rest of the anterior wall, septum and apex consistent wi th infarct. Dilation of the left ventricular cavity consistent with ischemic cardiomyopathy. (High risk) 2. Left ventricular ejection fraction is calculated at 18%. Risk stratificatio n according to the [place] [employer] and [place] [employer] Scientific Statement. Circulation (2008); 118: p 1497-518. Definitions: Low risk: 1. Normal or small my ocardial perfusion defect at rest or with stress.* 2. No change of resting wall motion abnor malities during stress.* Intermediate risk: 1. Mild/moderate resting left ventricular dysfun ction (LVEF = 35% to 49%). 2. Stress-induced moderate perfusion defect without left ventricu lar dilation or increased lung intake. High risk: 1. Severe resting left ventricular dysfunc tion (exercise LVEF < 35%). 2. Severe exercise left ventricular dysfunction (exercise LVEF < 35%). 3. Stress-induced large perfusion defect (particularly if anterior). 4. Stress-induce d multiple perfusion defects of moderate size. 5. Large, fixed perfusion defect with left ve ntricular dilation. 6. Stress-induced moderate perfusion defect with LV dilation. * Although the published data are limited, patients with these findings will probably not be at low ri sk in the presence of either a high risk treadmill score or severe resting left ventricular dysfunction (LVEF < 35%). LEM LIST Principal Problem: CAD (coronary artery disease) Active Problems: COPD (chronic obstructive pulmonary disease) ([facility]) Benign essential hypertension Hyperlipidemia Dyspnea Acute on chronic systolic congestive heart failure (HCC) Acute renal failure superimposed on stage 3 chronic kidney disease ([facility]) ASSESSMENT & PLAN CAD (coronary artery disease), in-stent restenosis distal left main, left anterior descen ding and left circumflex -Noted restenosis of the stents done one year prior. -Appreciate input from cardiology. -Appreciate input from cardiothoracic surgery. Plan for CABG over the weekend or early next week. -Off Plavix. -Continue heparin drip. -Episodic V. tach now improved with amiodarone thought to be secondary to ischemia. Dyspnea -This could be multifactorial but clinically resolve. -Acute congestive heart failure with mild elevation in BNP might have contributed. Patient responded well to diuresis. -Possible anginal equivalent considering restenosis of the prior stents. -Symptoms now resolved. COPD (chronic obstructive pulmonary disease) (HCC) -Clinically, does not appear to be in exacerbation. -We will monitor closely. Benign essential hypertension -Blood pressures are within acceptable range. -Patient is on entresto mainly for his cardiomyopathy but this will also lower blood pressu res. -Continue metoprolol 25 XL. Hyperlipidemia -Continue statin. Acute on chronic systolic congestive heart failure (HCC) -Overall, this is mostly improved. -Patient is on Lasix 20 mg twice a day. -Echo reviewed. EF between 25-30 percent. -Limit salt. Acute renal failure superimposed on stage 3 chronic kidney disease (HCC) -Creatinine is stable. -There could be a component of cardiorenal syndrome. -Avoid nephrotoxins but will continue entresto and low-dose furosemide and. -Appreciate nephrology input. Type II diabetes -Start low range Humalog correctional sliding scale. -Hold metformin in the meantime. DVT prophylaxis: In place. GI prophylaxis: In place. Disposition: Inpatient. Code Status: Full Code Dictation and stogie packer or software, AudienceView, used which may contain error for similar s ounding words even after review. Personal communication requested for any clarification. TAMMY GORMAN MD 05/05/2018 8:47 AM onversion Transact ion, Provider Unknown - 05/05/2018 6:50 AM PDTFormatting of this note might be different fr om the original. Nurse Progress Note by Kathryn Adler RN at 05/05/18 0650 Author: Kathryn Adler RN Service: (none) Author Type: Registered Nurse Filed: 05/05/18 0749 Date of Service: 05/05/18 0650 Status: Signed Acid Cutter: Kathryn Adler RN (Registered Nurse) Aptt therapeutic x2. Next aptt ordered for tomorrow am. No chest pain or SOB during this sh ift. VSS End of shift chart review done. KAHTRYN ADLER RN onver neema Transaction, Provider Unknown - 05/04/2018 6:21 PM PDT Nurse Progress Note by Alok Mortensen RN at 05/04/181820 Author: Alok Mortensen RN Service: (none) Author Type: Registered Nurse Filed: 05/04/181821 Date of Service: 05/04/181820 Status: Signed Acid Cutter: Alok Mortensen RN (Registered Nurse) [place] x3 for pain control. Garcia consulting. No acute events this shift. 12 Hr chart check complete onver neema Transaction, Provider Unknown - 05/04/2018 12:25 PM PDT Case Management by Mabel Bennett RN at 05/04/181224 Author: Mabel Bennett RN Service: (none) Author Type: Registered Nurse Filed: 05/04/186 Date of Service: 05/04/181224 Status: Signed Acid Cutter: Mabel Bennett RN (Registered Nurse) Met with pt re d/ cplanning. Pt lives with spouse in [place] and has been indep with all his ADL's, pt states that if he does have CABG here, he would like to return home as he has needed dme. Currently CT is consulting for possible CABG Carlee Tammy Day MD - 05/04/2018 9:30 AM PDT Progress Notes by Tammy Gorman MD at 05/04/18929 Author: Tammy Gorman MD Service: Hospitalist Author Type: Physician Filed: 05/04/18 1512 Date of Service: 05/04/18929 Status: Signed Acid Cutter: Tammy Gorman MD (Physician) [facility] Service: Hospitalist Progress Note Hospital Day: LOS: 3 days SUBJECTIVE Patient Summary: 62-year-old male with history of hyperlipidemia, COPD, previous smok er, chronic systolic congestive heart failure, ischemic cardiomyopathy EF of 30 percent stat us post defibrillator, coronary artery disease ST elevation [place] in 03/2017 status post stent l eft main to LAD and left circumflex, left atrial clot previously on Coumadin, recent admissi on in another institution on 10/2007. for pneumonia and transferred to [facility] for unstable shirley na status post ANY who presented with sudden onset of shortness of breath at [facility]. She was subsequently transferred to [facility] for further evaluation and management. Initi al troponin came back marginally high at 0.613. BNP is also high at 412. His troponin trende d up. He was initially treated with Lasix and DuoNeb at [place] with improvement of sympto ms. Cardiology, Dr. Hansen was consulted. Echocardiogram was done which showed an EF of 25-3 0 percent. [place] is at kinetic. Stress test was done revealing decreased uptake on stress and rest of the anterior wall, septum and apex consistent with infarct. The dilatation of the l eft ventricular cavity consistent with ischemic cardiomyopathy considered as high risk. Left ventricular ejection fraction is 80 percent. Sleep apnea also thought to be contributing to the shortness of breath. Patient developed new nonsustained V. tach. Subsequently, he under went left coronary angiogram revealing in-stent restenosis in the distal left main and left anterior descending, left circumflex area. Since drug-eluting stents were used a year ago, c ardiology did not think that restenting is the best approach. Cardiothoracic surgery was con sulted for further input. Events Overnight: 05/03/2018 Seen and examined patient. Over all, he is symptom free. No chest pain, no shortn ess of breath. He is off oxygen at room air speaking in full sentences. Her telemetry report , positive runs of V. tach. 05/04/2018 Seen and examined patient. He is currently asymptomatic. Scheduled Medications aspirin 81 mg Oral Daily with breakfast atorvastatin 80 mg Oral Nightly enoxaparin 40 mg Subcutaneous Q24H famotidine 20 mg Oral BID furosemide 20 mg Oral BID-Diuretics gabapentin 300 mg Oral TID heparin (porcine) 5000 unit/0.5mL 5,000 Units Intravenous Once insulin lispro (human) 0-3 Units Subcutaneous Nightly insulin lispro (human) 0-6 Units Subcutaneous TID AC melatonin 3 mg Oral Nightly metoprolol 25 mg Oral Daily multivitamin with minerals 1 tablet Oral Daily pantoprazole 40 mg Oral BID sacubitril-valsartan 1 tablet Oral BID sodium chloride 10 mL Intravenous Q8H Continuous Infusions dextrose heparin 50 units/mL PRN Medications acetaminophen OR acetaminophen, atropine sulfate, dextrose, dextrose, dextrose, glucago n, glucagon, heparin (porcine) 5000 unit/0.5mL, heparin (porcine) 5000 unit/0.5mL, HYDROcodo ne-acetaminophen, nitroGLYCERIN, ondansetron OR ondansetron, perflutren lipid microspher es, polyethylene glycol, regadenoson, sodium chloride (bolus), sodium chloride 0.9 %, traMAD ol, zolpidem OBJECTIVE Vital Signs: Vitals: 05/04/18 0254 05/04/18 0528 05/04/18 0755 05/04/18 0811 BP: 119/76 115/81 117/79 101/62 BP Location: Left forearm Pulse: 88 84 83 Resp: 18 18 Temp: 97.9 F (36.6 C) 97.8 F (36.6 C) TempSrc: Oral Oral SpO2: 96% 94% Weight: 94.5 kg (208 lb 5.4 oz) Height: Physical Exam General appearance: alert, appears stated age and cooperative. Mildly obese, no distress, v selena interactive, speaking in full sentences. Independent and ambulatory Head: Normocephalic, without obvious abnormality, atraumatic Neck: no adenopathy, no carotid bruit, no JVD, supple, symmetrical, trachea midline and thy roid not enlarged, symmetric, no tenderness/mass/nodules Lungs: clear to auscultation bilaterally Heart: regular rate and rhythm, S1, S2 normal, no murmur, click, rub or gallop Abdomen: soft, non-tender; bowel sounds normal; no masses, no organomegaly Musculoskeletal: There is no redness, warmth, or swelling of the joints. Limited range of motion noted. Motor strength is 5 out of 5 all extremities bilaterally. Tone is normal. Extremities: extremities normal, atraumatic, no cyanosis or edema Pulses: 2+ and symmetric Skin: Skin color, texture, turgor normal. No rashes or lesions Lymph nodes: Cervical, supraclavicular, and axillary nodes normal. DATA, personally reviewed Recent Labs Lab 05/04/18 0851 05/04/18 0359 05/03/18 0512 05/02/18 0437 WBC 7.79 6.52 6.33 6.84 HGB 14.4 13.9 13.3 13.9 HCT 42.4 40.1 38.9* 40.3 PLT 161 140* 142* 137* NEUTOPHILPCT -- 73.12 67.96 66.73 MONOPCT -- 8.35 9.12 8.20 Recent Labs Lab 05/04/18 0359 05/03/18 0512 05/02/18 0437 05/01/18 0815 NA 139 143 142 140 K 4.3 4.4 4.1 4.5 CL 107 110* 107 107 CO2 22* 24 24 24 BUN 27* 29* 29* 27* CREATININE 1.5* 1.4* 1.6* 1.8* PROT -- 7.0 -- 7.2 BILITOT -- 0.4 -- 0.4 ALT -- 30 -- 20 AST -- 22 -- 13 Phosphorus: Lab Results Component Value Date PHOS 5.1 (H) 05/04/2018 Recent Labs Lab 05/04/18 0359 05/02/18 0437 MG 2.4 2.5* Recent Labs Lab 05/01/18 0815 APTT 32 INR 1.0 Recent Labs Lab 05/02/18 0437 TSH 1.130 Recent Labs Lab 05/01/18 1805 05/01/18 1141 05/01/18 0815 CKTOTAL -- -- 67 TROPONINI 0.664* 0.678* 0.613* CKMBINDEX -- -- 3.9 Radiology, personally reviewed Xr Chest Pa And Lateral Result Date: 05/01/2018 Left midlung platelike atelectasis. Lungs are otherwise clear. Nm Myocardial Perfusion Spect (stress And Rest) Result Date: 05/02/2018 1. Decreased uptake on stress and rest of the anterior wall, septum and apex consistent wi th infarct. Dilation of the left ventricular cavity consistent with ischemic cardiomyopathy. (High risk) 2. Left ventricular ejection fraction is calculated at 18%. Risk stratificatio n according to the [place] [employer] and [place] [employer] Scientific Statement. Circulation (2008); 118: p 1497-518. Definitions: Low risk: 1. Normal or small my ocardial perfusion defect at rest or with stress.* 2. No change of resting wall motion abnor malities during stress.* Intermediate risk: 1. Mild/moderate resting left ventricular dysfun ction (LVEF = 35% to 49%). 2. Stress-induced moderate perfusion defect without left ventricu lar dilation or increased lung intake. High risk: 1. Severe resting left ventricular dysfunc tion (exercise LVEF < 35%). 2. Severe exercise left ventricular dysfunction (exercise LVEF < 35%). 3. Stress-induced large perfusion defect (particularly if anterior). 4. Stress-induce d multiple perfusion defects of moderate size. 5. Large, fixed perfusion defect with left ve ntricular dilation. 6. Stress-induced moderate perfusion defect with LV dilation. * Although the published data are limited, patients with these findings will probably not be at low ri sk in the presence of either a high risk treadmill score or severe resting left ventricular dysfunction (LVEF < 35%). LEM LIST Principal Problem: CAD (coronary artery disease) Active Problems: COPD (chronic obstructive pulmonary disease) ([facility]) Benign essential hypertension Hyperlipidemia Dyspnea Acute on chronic systolic congestive heart failure ([facility]) Acute renal failure superimposed on stage 3 chronic kidney disease ([facility]) ASSESSMENT & PLAN CAD (coronary artery disease), in-stent restenosis distal left main, left anterior descen ding and left circumflex -Noted restenosis of the stents done one year prior. -Appreciate input from cardiology. -Appreciate input from cardiothoracic surgery. -Continue heparin drip. -Currently asymptomatic. Dyspnea -This could be multifactorial but clinically resolve. -Acute congestive heart failure with mild elevation in BNP might have contributed. Patient responded well to diuresis. -Possible anginal equivalent considering restenosis of the prior stents. -Symptoms now resolved. COPD (chronic obstructive pulmonary disease) ([facility]) -Clinically, does not appear to be in exacerbation. -We will monitor closely. Benign essential hypertension -Blood pressures are within acceptable range. -Patient is on entresto mainly for his cardiomyopathy but this will also lower blood pressu res. -Continue metoprolol 25 XL. Hyperlipidemia -Continue statin. Acute on chronic systolic congestive heart failure (HCC) -Overall, this is mostly improved. -Patient is on Lasix 20 mg twice a day. -Echo reviewed. EF between 25-30 percent. -Limit salt. Acute renal failure superimposed on stage 3 chronic kidney disease ([facility]) -Creatinine is stable. -There could be a component of cardiorenal syndrome. -Avoid nephrotoxins but will continue entresto and low-dose furosemide and. -Will consult nephrology. Type II diabetes -Start low range Humalog correctional sliding scale. -Hold metformin in the meantime. DVT prophylaxis: In place. GI prophylaxis: In place. Disposition: Inpatient. Code Status: Full Code Dictation and stogie packer or software, AudienceView, used which may contain error for similar s ounding words even after review. Personal communication requested for any clarification. TAMMY GORMAN MD 05/04/2018 9:30 AM avage, Deisy Haile MD - 05/04/2018 8:43 AM PDTFormatting of this note might be different from the orig inal. Progress Notes by Deisy Hansen MD at 05/04/18842 Author: Deisy Hansen MD Service: (none) Author Type: Physician Filed: 05/04/18846 Date of Service: 05/04/18842 Status: Signed Acid Cutter: Deisy Hansen MD (Physician) [facility] Service: Cardiology Progress Note Hospital Day: LOS: 3 days Post-Op Day: * No surgery found * SUBJECTIVE Patient Summary: 62 WM with CAD Events Overnight: none OBJECTIVE Vital Signs: BP 101/62 (BP Location: Left forearm) | Pulse 83 | Temp 97.8 F (36.6 C) (Oral) | Re sp 18 | Ht 1.753 m (5' 9") | Wt 94.5 kg (208 lb 5.4 oz) | SpO2 94% | BMI 30.77 kg/m Physical Exam GENERAL: Pleasant, talkative in no apparent distress CHEST: Good inspiratory effort with no crackles, ronchi, or wheezes. CARDIAC: No lifts/heaves. PMI is discrete and non-displaced. Normal S1 and S2. No murmur s, rubs or gallops. ABDOMEN: Soft, non-tender, nondistended with normal, active bowel sounds. Normal abdominal pulsation without bruit. EXTREMITIES: No clubbing, cyanosis, or edema. PULSES: Right: radial 2+, femoral 2+ DP 2+, PT 2+ Left: radial 2+, femoral 2+ DP 2+, PT 2+ DATA 1. Recent Labs Lab 05/04/18 0359 05/03/18 0512 05/02/18 0437 05/01/18 1805 05/01/18 1141 05/01/18 0815 CKTOTAL -- -- -- -- -- 67 CKMB -- -- -- -- -- 2.6 TROPONINI -- -- -- 0.664* 0.678* 0.613* HGB 13.9 13.3 13.9 -- -- 13.8 WBC 6.52 6.33 6.84 -- -- 7.26 CREATININE 1.5* 1.4* 1.6* -- -- 1.8* ASSESSMENT & PLAN Feels well. VT paroxysams continue, occasional ATP. Holding plavix, start heparin gtt. CABG likely end of week, early next week. DEISY HANSEN MD 05/04/2018 onversion Transaction, Provider Unknown - 05/04/2018 4:38 AM PDTFormatting of this note might be dif ferent from the original. Nurse Progress Note by Katherin Christopher RN at 05/04/18437 Author: Katherin Christopher RN Service: (none) Author Type: Registered Nurse Filed: 05/04/18 0443 Date of Service: 05/04/18437 Status: Signed Acid Cutter: Katherin Christopher RN (Registered Nurse) Shift uneventful. Pt medicated for pain as needed per MAR parameters. Pt has ambulated a fe w times in hallway, R groin site remains soft and dry. Pt continues to have short runs of Vt ach and frequent PVCs/couplets, asymptomatic. VS otherwise stable. 12 hr chart check complet tom Christopher RN onver neema Transaction, Provider Unknown - 05/03/2018 7:06 PM PDT Nurse Progress Note by Alok Mortensen RN at 05/03/18 7377 Author: Alok Mortensen RN Service: (none) Author Type: Registered Nurse Filed: 05/03/181905 Date of Service: 05/03/181905 Status: Signed Acid Cutter: Alok Mortensen RN (Registered Nurse) Pt to laboratory cureman today no interventions. CT consult ( see note). No acute events this shift. 12 Hr chart check complete onver neema Transaction, Provider Unknown - 05/03/2018 3:52 PM PDT Pharmacy Note by Venice Garces [facility] at 05/03/181551 Author: Venice Garces RP Service: Pharmacy Author Type: Pharmacist Filed: 05/03/181552 Date of Service: 05/03/181551 Status: Signed Acid Cutter: Venice Garces RPH (Pharmacist) The following was reviewed by the pharmacist and is in agreement with the below: Venice Garces PharmD [facility] Rx CHF Medication Counseling Note Patient received medication counseling for the following CHF medications: Beta Blockers: metoprolol succinate (TOPROL XL) Diuretics: furosemide (LASIX) (ARNIs): Sacubitril/Valsartan (ENTRESTO) Counseled patient on heart failure medications, weight monitoring, medication adherence, a s well as keeping medication list up to date. Patient was pleasant and engaging in counselin g about his heart failure medications. Patient stated that he did not miss any doses. Patie nt also stated that doctor wanted him to switch from Lisinopril to Entresto due to producing better results for his heart. In addition, patient stated that he was not monitoring his we ight nor his blood pressure daily; was only monitoring when he remembered. Stressed importan ce of weighing and monitoring BP everyday; patient expressed willingness to improve on monit oring. Rodríguez Carlos, [facility] 05/03/2018 3:37 PM onver neema Transaction, Provider Unknown - 05/03/2018 12:05 PM PDT Nurse Progress Note by Alok Mortensen RN at 05/03/18 1205 Author: Alok Mortensen RN Service: (none) Author Type: Registered Nurse Filed: 05/03/18 1206 Date of Service: 05/03/18 120 Status: Signed Acid Cutter: Alok Mortensen RN (Registered Nurse) Report given to Michelle laboratory cureman RN. Pt to cathlab. Alok Mortensen RN Tammy Day MD - 05/03/2018 9:36 AM PDT Progress Notes by Tammy Gorman MD at 05/03/18 0041 Author: Tammy Gorman MD Service: Hospitalist Author Type: Physician Filed: 05/03/18 2059 Date of Service: 05/03/1836 Status: Addendum Acid Cutter: Tammy Gorman MD (Physician) Related Notes: Original Note by Tammy Gorman MD (Physician) filed at 05/03/18 3838 [facility] Service: Hospitalist Progress Note Hospital Day: LOS: 2 days SUBJECTIVE Patient Summary: 62-year-old male with history of hyperlipidemia, COPD, previous smok er, chronic systolic congestive heart failure, ischemic cardiomyopathy EF of 30 percent stat us post defibrillator, coronary artery disease ST elevation [place] in 03/2017 status post stent l eft main to LAD and left circumflex, left atrial clot previously on Coumadin, recent admissi on in another institution on 10/2007. for pneumonia and transferred to [facility] for unstable shirley na status post ANY who presented with sudden onset of shortness of breath at [facility]. She was subsequently transferred to [facility] for further evaluation and management. Initi al troponin came back marginally high at 0.613. BNP is also high at 412. His troponin trende d up. He was initially treated with Lasix and DuoNeb at [place] with improvement of sympto ms. Cardiology, Dr. Hansen was consulted. Echocardiogram was done which showed an EF of 25-3 0 percent. [place] is at kinetic. Stress test was done revealing decreased uptake on stress and rest of the anterior wall, septum and apex consistent with infarct. The dilatation of the l eft ventricular cavity consistent with ischemic cardiomyopathy considered as high risk. Left ventricular ejection fraction is 80 percent. Sleep apnea also thought to be contributing to the shortness of breath. Patient developed new nonsustained V. tach. Subsequently, he under went left coronary angiogram revealing in-stent restenosis in the distal left main and left anterior descending, left circumflex area. Since drug-eluting stents were used a year ago, c ardiology did not think that restenting is the best approach. Cardiothoracic surgery was con sulted for further input. Events Overnight: Seen and examined patient. Over all, he is symptom free. No chest p ain, no shortness of breath. He is off oxygen at room air speaking in full sentences. Her te lemetry report, positive runs of V. tach. Scheduled Medications aspirin 81 mg Oral Daily atorvastatin 80 mg Oral Nightly clopidogrel 75 mg Oral Daily enoxaparin 40 mg Subcutaneous Q24H famotidine 20 mg Oral BID furosemide 20 mg Oral BID-Diuretics gabapentin 300 mg Oral TID melatonin 3 mg Oral Nightly metoprolol 25 mg Oral Daily multivitamin with minerals 1 tablet Oral Daily pantoprazole 40 mg Oral BID sacubitril-valsartan 1 tablet Oral BID sodium chloride 10 mL Intravenous Q8H Continuous Infusions PRN Medications acetaminophen OR acetaminophen, HYDROcodone-acetaminophen, nitroGLYCERIN, ondansetron * *OR ondansetron, perflutren lipid microspheres, polyethylene glycol, regadenoson, sodium c hloride 0.9 %, traMADol OBJECTIVE Vital Signs: Vitals: 05/02/18 1909 05/02/18 2309 05/03/18 0256 05/03/18 0807 BP: 115/73 112/57 107/58 115/73 BP Location: Right upper arm Right upper arm Right forearm Right forearm Pulse: 80 81 86 84 Resp: Temp: 97.6 F (36.4 C) 97.6 F (36.4 C) 97.6 F (36.4 C) 98.4 F (36.9 C) TempSrc: Oral Oral Oral Oral SpO2: 95% 96% 90% 93% Weight: 96 kg (211 lb 10.3 oz) Height: Physical Exam General appearance: alert, appears stated age and cooperative. Mildly obese, no distress, v selena interactive, speaking in full sentences Head: Normocephalic, without obvious abnormality, atraumatic Neck: no adenopathy, no carotid bruit, no JVD, supple, symmetrical, trachea midline and thy roid not enlarged, symmetric, no tenderness/mass/nodules Lungs: clear to auscultation bilaterally Heart: regular rate and rhythm, S1, S2 normal, no murmur, click, rub or gallop Abdomen: soft, non-tender; bowel sounds normal; no masses, no organomegaly Musculoskeletal: There is no redness, warmth, or swelling of the joints. Limited range of motion noted. Motor strength is 5 out of 5 all extremities bilaterally. Tone is normal. Extremities: extremities normal, atraumatic, no cyanosis or edema Pulses: 2+ and symmetric Skin: Skin color, texture, turgor normal. No rashes or lesions Lymph nodes: Cervical, supraclavicular, and axillary nodes normal. DATA, personally reviewed Recent Labs Lab 05/03/18 0512 05/02/18 0437 05/01/18 0815 WBC 6.33 6.84 7.26 HGB 13.3 13.9 13.8 HCT 38.9* 40.3 40.2 PLT 142* 137* 156 NEUTOPHILPCT 67.96 66.73 73.43 MONOPCT 9.12 8.20 7.76 Recent Labs Lab 05/03/18 0512 05/02/18 0437 05/01/18 0815 NA 143 142 140 K 4.4 4.1 4.5 CL 110* 107 107 CO2 24 24 24 BUN 29* 29* 27* CREATININE 1.4* 1.6* 1.8* PROT 7.0 -- 7.2 BILITOT 0.4 -- 0.4 ALT 30 -- 20 AST 22 -- 13 Phosphorus: Lab Results Component Value Date PHOS 3.4 05/02/2018 Recent Labs Lab 05/02/18 0437 MG 2.5* Recent Labs Lab 05/01/18 0815 APTT 32 INR 1.0 Recent Labs Lab 05/02/18 0437 TSH 1.130 Recent Labs Lab 05/01/18 1805 05/01/18 1141 05/01/18 0815 CKTOTAL -- -- 67 TROPONINI 0.664* 0.678* 0.613* CKMBINDEX -- -- 3.9 Radiology, personally reviewed Xr Chest Pa And Lateral Result Date: 05/01/2018 Left midlung platelike atelectasis. Lungs are otherwise clear. Nm Myocardial Perfusion Spect (stress And Rest) Result Date: 05/02/2018 1. Decreased uptake on stress and rest of the anterior wall, septum and apex consistent wi th infarct. Dilation of the left ventricular cavity consistent with ischemic cardiomyopathy. (High risk) 2. Left ventricular ejection fraction is calculated at 18%. Risk stratificatio n according to the [place] [employer] and [place] [employer] Scientific Statement. Circulation (2008); 118: p 1497-518. Definitions: Low risk: 1. Normal or small my ocardial perfusion defect at rest or with stress.* 2. No change of resting wall motion abnor malities during stress.* Intermediate risk: 1. Mild/moderate resting left ventricular dysfun ction (LVEF = 35% to 49%). 2. Stress-induced moderate perfusion defect without left ventricu lar dilation or increased lung intake. High risk: 1. Severe resting left ventricular dysfunc tion (exercise LVEF < 35%). 2. Severe exercise left ventricular dysfunction (exercise LVEF < 35%). 3. Stress-induced large perfusion defect (particularly if anterior). 4. Stress-induce d multiple perfusion defects of moderate size. 5. Large, fixed perfusion defect with left ve ntricular dilation. 6. Stress-induced moderate perfusion defect with LV dilation. * Although the published data are limited, patients with these findings will probably not be at low ri sk in the presence of either a high risk treadmill score or severe resting left ventricular dysfunction (LVEF < 35%). LEM LIST Principal Problem: Dyspnea Active Problems: COPD (chronic obstructive pulmonary disease) (HCC) Benign essential hypertension Hyperlipidemia CAD (coronary artery disease) Acute on chronic systolic congestive heart failure (HCC) Acute renal failure superimposed on stage 3 chronic kidney disease (HCC) ASSESSMENT & PLAN Dyspnea -This could be multifactorial but clinically resolve. -Acute congestive heart failure with mild elevation in BNP might have contributed. Patient responded well to diuresis. -Possible anginal equivalent considering restenosis of the prior stents. -Symptoms now resolved. COPD (chronic obstructive pulmonary disease) ([facility]) -Clinically, does not appear to be in exacerbation. -We will monitor closely. Benign essential hypertension -Blood pressures are within acceptable range. -Patient is on entresto mainly for his cardiomyopathy but this will also lower blood pressu res. -Continue metoprolol 25 XL. Hyperlipidemia -Continue statin. CAD (coronary artery disease) -Noted restenosis of the stents done one year prior. -Appreciate input from cardiology. -Awaiting input from cardiothoracic surgery. Acute on chronic systolic congestive heart failure (HCC) -Overall, this is mostly improved. -Patient is on Lasix 20 mg twice a day. -Limit salt. Acute renal failure superimposed on stage 3 chronic kidney disease (HCC) -Creatinine actually improved after diuresis. -There could be a component of cardiorenal syndrome. -Avoid nephrotoxins but will continue entresto and low-dose furosemide and. Type II diabetes -Start low range Humalog correctional sliding scale. -Hold metformin in the meantime. DVT prophylaxis: In place. GI prophylaxis: In place. Disposition: Inpatient. Code Status: Full Code Dictation and stogie packer or software, AudienceView, used which may contain error for similar s ounding words even after review. Personal communication requested for any clarification. TAMMY GORMAN MD 05/03/2018 9:36 AM onversion Transact ion, Provider Unknown - 05/03/2018 9:20 AM PDTFormatting of this note might be different fr om the original. Progress Notes by Whit Green CRT at 05/03/18919 Author: Whit Green CRT Service: (none) Author Type: Certified Respiratory Therapist Filed: 05/03/18920 Date of Service: 05/03/18919 Status: Signed Acid Cutter: Whit Green CRT (Certified Respiratory Therapist) [facility] Department of Respiratory Senior Care Oxygen Evaluation (Evaluation is valid for 48 hours once completed) Date: 05/03/2018 RT: Whit Green Time: 9:21 AM Home O2 Eval at rest-Part 1 Is the patient's SpO2 88% or lower at rest & breathing room air? : No SpO2 at rest & breathing room air: 95 percent Home O2 Eval during exercise-Part 2 Is the patient's SpO2 88% or lower during exercise & breathing room air? : No SpO2 during exercise & breathing room air : 93 percent Home O2 Eval Comment Eval Comment: Pt had no complaints of SOB or any other symptons while walking HOME OXYGEN PROVIDER PREFERENCE PHONE FAX *NOTE* Provider must include liter flow, route of oxygen administration, frequency of use w ith duration of need in months on the prescription AND document patient s diagnosis. OXYGEN PRN IS NOT A VALID ORDER Physician Signature: Date: Time: acesarioge , Deisy Haile MD - 05/03/2018 8:59 AM PDT Progress Notes by Deisy Hansen MD at 05/03/18 0859 Author: Deisy Hansen MD Service: (none) Author Type: Physician Filed: 05/03/18900 Date of Service: 05/03/18858 Status: Signed Acid Cutter: Deisy Hansen MD (Physician) [facility] Service: Cardiology Progress Note Hospital Day: LOS: 2 days Post-Op Day: * No surgery found * SUBJECTIVE Patient Summary: 62 WM with CAD, dyspnea Events Overnight: More VT OBJECTIVE Vital Signs: BP 115/73 (BP Location: Right forearm) | Pulse 84 | Temp 98.4 F (36.9 C) (Oral) | R anaid 18 | Ht 1.753 m (5' 9") | Wt 96 kg (211 lb 10.3 oz) | SpO2 93% | BMI 31.25 kg/m Physical Exam GENERAL: Pleasant, talkative in no apparent distress CHEST: Good inspiratory effort with no crackles, ronchi, or wheezes. CARDIAC: No lifts/heaves. PMI is discrete and non-displaced. Normal S1 and S2. No murmur s, rubs or gallops. ABDOMEN: Soft, non-tender, nondistended with normal, active bowel sounds. Normal abdominal pulsation without bruit. EXTREMITIES: No clubbing, cyanosis, or edema. PULSES: Right: radial 2+, femoral 2+ DP 2+, PT 2+ Left: radial 2+, femoral 2+ DP 2+, PT 2+ DATA 1. Recent Labs Lab 05/03/18 0512 05/02/18 0437 05/01/18 1805 05/01/18 1141 05/01/18 0815 CKTOTAL -- -- -- -- 67 CKMB -- -- -- -- 2.6 TROPONINI -- -- 0.664* 0.678* 0.613* HGB 13.3 13.9 -- -- 13.8 WBC 6.33 6.84 -- -- 7.26 CREATININE 1.4* 1.6* -- -- 1.8* ASSESSMENT & PLAN Feels well, better night. Still with NSVT, some ATP. D/W [employer] rep. VT is new. For that reason, I think I need to look at his coronary rachel adrienne. DC fluid restriction. DEISY HANSEN MD 05/03/2018 onversion Transaction, Provider Unknown - 05/03/2018 3:18 AM PDTFormatting of this note might be dif ferent from the original. Nurse Progress Note by Deanna Ordonez RN at 05/03/18317 Author: Deanna Ordonez RN Service: (none) Author Type: Registered Nurse Filed: 05/03/18318 Date of Service: 05/03/18317 Status: Signed Acid Cutter: Deanna Ordonez RN (Registered Nurse) End of shift chart review and 24 hour chart check completed. onver neema Transaction, Provider Unknown - 05/02/2018 6:03 PM PDT Nurse Progress Note by Alok Mortensen RN at 05/02/181802 Author: Alok Mortensen RN Service: (none) Author Type: Registered Nurse Filed: 05/02/181804 Date of Service: 05/02/181802 Status: Signed Acid Cutter: Alok Mortensen RN (Registered Nurse) [place] x2 this shift for pain control. Pt to stress test in AM. Multiple episodes of asympto matic VT. 12 Hr chart check complete. Alok Mortensen RN avage , Deisy Haile MD - 05/02/2018 10:52 AM PDT Progress Notes by Deisy Hansen MD at 05/02/18 1052 Author: Deisy Hansen MD Service: (none) Author Type: Physician Filed: 05/02/18 1056 Date of Service: 05/02/181051 Status: Signed Acid Cutter: Deisy Hansen MD (Physician) [facility] Service: Cardiology Progress Note Hospital Day: LOS: 1 day Post-Op Day: * No surgery found * SUBJECTIVE Patient Summary: 62 WM with CAD, admitted with dyspnea. Events Overnight: States rough night as kept being awakened to see if he was OK. OBJECTIVE Vital Signs: BP 98/69 | Pulse 80 | Temp 97.4 F (36.3 C) (Oral) | Resp 18 | Ht 1.753 m (5' 9") | Wt 95.2 kg (209 lb 14.1 oz) | SpO2 96% | BMI 30.99 kg/m Physical Exam GENERAL: Pleasant, talkative in no apparent distress CHEST: Good inspiratory effort with no crackles, ronchi, or wheezes. CARDIAC: No lifts/heaves. PMI is discrete and non-displaced. Normal S1 and S2. No murmur s, rubs or gallops. ABDOMEN: Soft, non-tender, nondistended with normal, active bowel sounds. Normal abdominal pulsation without bruit. EXTREMITIES: No clubbing, cyanosis, or edema. PULSES: Right: radial 2+, femoral 2+ DP 2+, PT 2+ Left: radial 2+, femoral 2+ DP 2+, PT 2+ DATA 1. Recent Labs Lab 05/02/18 0437 05/01/18 1805 05/01/18 1141 05/01/18 0815 CKTOTAL -- -- -- 67 CKMB -- -- -- 2.6 TROPONINI -- 0.664* 0.678* 0.613* HGB 13.9 -- -- 13.8 WBC 6.84 -- -- 7.26 CREATININE 1.6* -- -- 1.8* ASSESSMENT & PLAN Feels well. Nuc study with large anterior apical scar. No significant ischemia (my read). Several episodes of VT overnight. AICD paced him out of it. Not sure if this is new. Want t o discuss with his crystal evaluator tomorrow (Thursday). DEISY HANSEN MD 05/02/2018 ydaniel, Isai Bailey MD - 05/02/2018 8:19 AM PDTFormatting of this note might be different from the satish ginal. Progress Notes by Lynn Rowland MD at 05/02/18818 Author: Lynn Rowland MD Service: (none) Author Type: Physician Filed: 05/02/18 1219 Date of Service: 05/02/18818 Status: Addendum Acid Cutter: Lynn Rowland MD (Physician) Related Notes: Original Note by Lynn Rowland MD (Physician) filed at 05/02/18 0834 [facility] Service: Hospitalist Progress Note Pt: Ron Mckeon AGE/SEX: 62 y.o. male : 1955 ROOM: [address] [place] [address] REQUESTING PROVIDER: Lynn Rowland MD TODAY'S DATE: 05/02/2018 Hospital Day: LOS: 1 day +PMH CKD stage III, HLD COPD chronic systolic CHF eject in 30s% and CAD s/p stent 2017 h/o of arrthymia h/o defibrillator+ admitted with SOB Also found to have elevated troponin And BNP 400s cardiology consulted SUBJECTIVE sOB + no CP Scheduled Medications aspirin 81 mg Oral Daily atorvastatin 80 mg Oral Nightly clopidogrel 75 mg Oral Daily enoxaparin 40 mg Subcutaneous Q24H famotidine 20 mg Oral BID furosemide 20 mg Oral BID-Diuretics gabapentin 300 mg Oral TID melatonin 3 mg Oral Nightly metoprolol 25 mg Oral Daily multivitamin with minerals 1 tablet Oral Daily pantoprazole 40 mg Oral BID sacubitril-valsartan 1 tablet Oral BID sodium chloride 10 mL Intravenous Q8H Continuous Infusions PRN Medications acetaminophen OR acetaminophen, HYDROcodone-acetaminophen, nitroGLYCERIN, ondansetron * *OR ondansetron, perflutren lipid microspheres, polyethylene glycol, sodium chloride 0.9 % , traMADol Allergy: No Known Allergies OBJECTIVE Vitals: Patient Vitals for the past 24 hrs: BP Temp Temp src Pulse Resp SpO2 Height Weight 05/02/18 0805 97/63 97.4 F (36.3 C) Oral 80 18 96 % - - 05/02/18 0334 95/54 97.6 F (36.4 C) Oral 74 18 92 % - 95.2 kg (209 lb 14.1 oz) 05/01/18 2324 110/62 97.7 F (36.5 C) Oral 90 18 94 % - - 05/01/18 2029 110/66 98.1 F (36.7 C) Oral 79 18 96 % - - 05/01/18 1509 118/68 97.6 F (36.4 C) Oral 84 17 93 % - - 05/01/18 1156 114/75 - - - - - - - 05/01/18 1034 113/69 97.8 F (36.6 C) - 87 16 95 % 1.753 m (5' 9") 97.2 kg (214 lb 4.6 o z) 05/01/18 1025 102/62 - - 77 16 97 % - - 05/01/18 0942 114/64 - - 77 18 95 % - - 05/01/18 0858 107/61 - - 81 16 99 % - - I&O Detailed Table: Intake/Output Summary (Last 24 hours) at 05/02/18 0820 Last data filed at 05/02/18 0335 Gross per 24 hour Intake 895 ml Output 2500 ml Net -1605 ml Patient Vitals for the past 96 hrs: Weight 05/02/18 0334 95.2 kg (209 lb 14.1 oz) 05/01/18 1034 97.2 kg (214 lb 4.6 oz) 05/01/18 0800 100.2 kg (221 lb) Hemodynamics Last 24hrs: Review of systems as per Subjective compliant the rest non contrbutory Examination: HEENT-perrel NEck Supple no JVD, no L/N lung- BS+ at bases + heart S1 S2 no murmur abdomen- soft BS+ no tenderness EXt no edema GAMBLING COUNSELLOR alert no focality LABS: Recent Labs Lab 05/02/18 0437 05/01/18 0815 WBC 6.84 7.26 HGB 13.9 13.8 HCT 40.3 40.2 PLT 137* 156 NEUTOPHILPCT 66.73 73.43 MONOPCT 8.20 7.76 Recent Labs Lab 05/02/18 0437 05/01/18 0815 NA 142 140 K 4.1 4.5 CL 107 107 CO2 24 24 BUN 29* 27* CREATININE 1.6* 1.8* PROT -- 7.2 BILITOT -- 0.4 ALT -- 20 AST -- 13 Phosphorus: Recent Labs Lab 05/02/18 0437 PHOS 3.4 Recent Labs Lab 05/02/18 0437 MG 2.5* No results for input(s): AMYLASE in the last 168 hours. No results for input(s): PHART, PO2ART, DKG7QQQ, V1BNDFJH, BEART in the last 168 hours. Recent Labs Lab 05/01/18 0815 APTT 32 INR 1.0 Recent Labs Lab 05/02/18 0437 TSH 1.130 Recent Labs Lab 05/01/18 1805 05/01/18 1141 05/01/18 0815 CKTOTAL -- -- 67 TROPONINI 0.664* 0.678* 0.613* CKMBINDEX -- -- 3.9 PROBLEM LIST Principal Problem: Dyspnea Active Problems: COPD (chronic obstructive pulmonary disease) ([facility]) Benign essential hypertension Hyperlipidemia CAD (coronary artery disease) Acute on chronic systolic congestive heart failure (HCC) Acute renal failure superimposed on stage 3 chronic kidney disease ([facility]) ASSESSMENT & PLAN Principal Problem: Dyspnea: With acute on chronic systolic congestive heart failure Chest x-ray at outside facility pulmonary edema. IV lasix . Monitor I/Os and daily weights, 1.5L fluid restriction, 2gm salt restriction. 03/24 Echo EF 40-35%. Patient has BiVCD, had interrogation admit date with no arrythmias d etected. Troponin might reflect demand effect but wityh his sig cardic h/o revascularization his tory Might need cardic work up in term of ischemia with stress test f/ up cardiology recom mendation ASA statin Betablocker Metoprolol entresto troponin trend moniter some what trend dwon no CP at visist time echo alos f/ up Acute renal failure superimposed on stage 3 chronic kidney disease: baseline 1.3-1.5 monitor creatinine, Avoid nephrotoxins. Until stabilized moniter BP as well Though his cardiomyopathy certain low ranage BP in 90s is acceptable a s far as not symptomatic COPD: stable, not iojn acute decompenstaion exacerbation, continue home meds will do home O2 evalution as well Hyperlipidemia: continue statin. Obesity/suspected LOUISA; Need sleep study as out patient diet lifestyle adddress DVT pro LYNN ROWLAND MD MD 05/02/2018 8:20 AM NM stress large anterior apical scar. No significant ischemia Per onversion Transac tion, Provider Unknown - 05/02/2018 2:45 AM PDTFormatting of this note might be different f rom the original. Nurse Progress Note by Deanna Ordnoez RN at 05/02/18244 Author: Deanna Ordonez RN Service: (none) Author Type: Registered Nurse Filed: 05/02/18244 Date of Service: 05/02/18244 Status: Signed Acid Cutter: Deanna Ordonez RN (Registered Nurse) End of shift chart review and 24 hour chart check completed. onver neema Transaction, Provider Unknown - 05/01/2018 10:23 PM PDT Nurse Progress Note by Deanna Ordonez RN at 05/01/182222 Author: Deanna Ordonez RN Service: (none) Author Type: Registered Nurse Filed: 05/01/182225 Date of Service: 05/01/182222 Status: Signed Acid Cutter: Deanna Ordonez RN (Registered Nurse) Pt having frequent short runs of VT (3-10 beats) and is reporting no associated symptoms. O ne long run of VT (40+ beats) with palpitations at 2200. Dr. Hansen notified of these events ; no new orders at this time. Will continue with current plan of stress test tomorrow. Deanna Ordonez RN onver neema Transaction, Provider Unknown - 05/01/2018 8:20 PM PDT Case Management by RAINER Starkey at 05/01/182019 Author: RAINER Starkey Service: (none) Author Type: Barrel Leveler Filed: 05/01/182024 Date of Service: 05/01/182019 Status: Signed Acid Cutter: RAINER Starkey (Barrel Leveler) 05/01/182016 Discharge Planning Evaluation Admitting Diagnosis (dyspnea) Readmission No Living Arrangements Spouse/significant other Support Systems Spouse/significant other;Family members (spouse at bedside, strong family and social support) Type of Residence Private residence House type House-1 story Steps to enter 4 (stairs to the garage) Bathrooms on 1st Floor 1-Full Independent with ADL's Yes Independent with Mobility No-comment (cane used always, has walker and w/c available for use as needed) Home Care Services No Caregiver after Discharge Yes (spouse is available to assist with care after d/c) Mental Status Oriented Resources Financial concerns No Transportation issues No (drives when he is well, spouse provides most transport) Patient/Family concerns No Prescription Plan Yes ([facility] [place], [place]) Anticipated Disposition Facility Type (home with OP follow up) Met with patient, spouse Joslyn at bedside, introduced myself and role of case management lauren rendon Pt is a 62 y.o., male here with dyspnea. Patient with past medical hx of COPD, STEMI, HTN, HLD. Patient quit smoking 2016. Patient lives with spouse in 1 story home in [place], [place], is IADLS, uses a cane and shower chair (also has walker and w/c available), denies any charu health therapies or caregivers, does currently have OP cardiac therapy 2x per week at [facility]. Patient denies any other ongoing regular OP therapies or services. Patient's PCP is: Chato Matson Patient denies any barriers to regular OP follow up. Patient's insurance: Medicaid [facility] Coverage concerns: none Medication coverage/concerns: none Community resources utilized / needed: Provided information for [place] Medicaid Transport as patient mentions transportation costs as a burden for accessing his OP care Assistance in transportation: spouse provides most transport Identification of any specific education / training: none Barriers to Discharge / Alternative housing needed: none Anticipated DCP: home with OP follow up, patient request home O2 eval prior to discharge, n oted on facesheet sticky note. RAINER Starkey onver neema Transaction, Provider Unknown - 05/01/2018 6:22 PM PDT Nurse Progress Note by Alok Mortensen RN at 05/01/181821 Author: Alok Mortensen RN Service: (none) Author Type: Registered Nurse Filed: 05/01/181824 Date of Service: 05/01/181821 Status: Signed Acid Cutter: Alok Mortensen RN (Registered Nurse) Tramadol x1 at 1210 and [place] x1 at 1528. No acute events this shift. Pt place on 1.5L flui d restriction. Stress test in AM. 12 Hr chart check complete. Alok Mortensen RN onver neema Transaction, Provider Unknown - 05/01/2018 10:38 AM PDT Progress Notes by Yajaira Rapp RPH at 05/01/18 1038 Author: Yajaira Rapp RPH Service: Pharmacy Author Type: Pharmacist Filed: 05/01/18 1038 Date of Service: 05/01/18 1038 Status: Signed Acid Cutter: Yajaira Rapp RPH (Pharmacist) Clinical Pharmacy Note: Renal Monitoring Ron Collazooberts 62 y.o. male Ht Readings from Last 1 Encounters: No data found for Ht Wt Readings from Last 1 Encounters: 05/01/18 100.2 kg (221 lb) SCr: 1.8mg/dL Creatinine clearance cannot be calculated (Unknown ideal weight.) Pharmacy dosing for renal function per Dr. Armida Sherman. Currently, there is no updated height. Pharmacy will adjust medications, if necessary, when height is reported. Yajaira Rapp PharmD 05/01/2018 10:38 AM docume nted in this encounter H&P Notes Sheron Sherman MD - 05/01/2018 9:53 AM PDT H&P by Sheron Sherman MD at 05/01/18 0966 Author: Sheron Sherman MD Service: Hospitalist Author Type: Physician Filed: 05/03/18 0201 Date of Service: 05/01/18 0953 Status: Addendum Acid Cutter: Sheron Sherman MD (Physician) Related Notes: Original Note by Sheron Sherman MD (Physician) filed at 05/01/18 0675 [facility] Service: Hospitalist Admission History & Physical Date of Admission: 05/01/2018 Requesting Physician: Emergency Department Reason for Admission: History Obtained From: patient CHIEF COMPLAINT: dyspnea HISTORY OF PRESENT ILLNESS This is a 62-year-old gentleman with a past medical history of COPD, former smoker, quite i n 03/2017, hypertension, hyperlipidemia, chronic neck pain, suspected sleep apnea but had hi s initial workup done about a month ago and with repeat testing due in the near future, hist ory of ischemic cardiomyopathy with his last echocardiogram done on 04/02/2018 which showed mild biatrial dilatation, mild left ventricular dilatation with severe hypokinesis of the an terior anteroseptal region with left ventricular systolic function of 30-35 percent and grad e 1 diastolic dysfunction, mild mitral valve regurgitation, status post bi-v CD, chronic kid bertrand disease stage 3 with a baseline creatinine of 1.3. Patient also has a history of signif icant coronary artery disease and was transferred from [place] to [facility] when he was found to have STEMI in 03/2017 with thrombosed left main artery treated with PCI of the left main into the LAD and subsequent PCI of left circumflex. His hospital course at that time was c omplicated by acute cardiogenic shock status post ECMO. Left atrial clot, previously on cou madin. He was again admitted at [facility] in 10/2017 when he was admitted for pneumonia and unst able angina and underwent drug-eluting stent to ostial left circumflex and angioplasty of th e distal left main with balloon inflation extending into the left anterior descending. Gela ent had been doing well up until yesterday when he developed shortness of breath. He report s that his shortness of breath got worse when he was sleeping in the middle of the night and woke up a couple of times due to the shortness of breath. This was mildly relieved with si tting up but continued to persist even when he was ambulating and hence he decided to go to the emergency department in [place]. He has chronic neck pain but this flared up with thi s episode but he denied any chest pain. He denied any dizziness but had some nausea but no diaphoresis. He had been wheezing. He does complain of snoring at night and apneic episode s during the night. He reports he has gained about 8-10 pounds in the last 1 month but jacqui es any lower extremity edema. No abdominal pain, diarrhea, constipation, or any urinary sym ptoms. He denies any fevers, chills, runny nose, or nasal congestion. He reports he has be en drinking about 2 cans of soda every day but usually drinks about 2 liters of fluids total and with limited salt intake. He has been compliant with his medications. He denied any p alpitations or firing of his defibrillator and this was checked about a month ago and was no rmal per patient. The patient follows up with Dr. Figueroa at [place]. The patient was transferred from [place] to the main [facility] emergency department. I do n ot have the records from [facility]; however, while he was at [facility] his vitals were stable. Labs showed a troponin of 0.613 with EKG showing V paced, creatinine was elevated at 1.8. White count was normal. BNP was elevated at 412. Repeat troponin was 0.678. Ches t x-ray showed left mid lung plate-like atelectasis, otherwise lungs are clear. The patient received DuoNeb and Lasix at [place] with relief of his symptoms and he reports that he i s closer to his baseline. REVIEW OF SYSTEMS Review of Systems - General ROS: negative ENT: No ear discharge No nasal drainage. No sore throat Endocrine:No cold or heat tolerance. No weight changes Respiratory: no cough, +shortness of breath, + wheezing Cardiovascular: no chest pain or dyspnea on exertion Gastrointestinal: no abdominal pain, change in bowel habits, or black or bloody stools Genitourinary: no dysuria, polyuria, hematuria Musculoskeletal: negative No muscle weakness, +neck pain Neurological: no TIA or stroke symptoms Dermatological:No rash Psych: cooperative Past Medical History Diagnosis Date Arthritis Chronic obstructive pulmonary disease (HCC) Congestive heart failure (HCC) Hyperlipidemia Hypertension Old myocardial infarction 2017 Past Surgical History Procedure Laterality Date CARDIAC CATHETERIZATION stent placed CHOLECYSTECTOMY echmo 2017 NASAL SEPTUM SURGERY PACEMAKER INSERTION defibrilater No Known Allergies Prescriptions Prior to Admission Medication Sig Dispense Refill Last Dose acetaminophen (TYLENOL) 500 MG tablet Take 1,000 mg by mouth every 6 (six) hours as nee ded for Pain. 04/30/2018 at Unknown time aspirin 81 MG tablet Take 81 mg by mouth daily. 04/30/2018 at Unknown time atorvastatin (LIPITOR) 80 MG tablet Take 80 mg by mouth nightly. 04/30/2018 at Unknown time clopidogrel (PLAVIX) 75 MG tablet Take 75 mg by mouth daily. 04/30/2018 at Unknown brenda e furosemide (LASIX) 20 MG tablet Take 20 mg by mouth daily. 04/30/2018 at Unknown time gabapentin (NEURONTIN) 300 MG capsule Take 300 mg by mouth 3 (three) times daily. 04/08 at Unknown time HYDROcodone-acetaminophen (NORCO) 5-325 MG per tablet Take 1 tablet by mouth every 6 (s ix) hours as needed for Pain. 04/30/2018 at furosefur lisinopril (ZESTRIL) 10 MG tablet Take 10 mg by mouth daily. 04/30/2018 at Unknown brenda e melatonin 3 MG TABS Take 3 mg by mouth nightly. Past Week at Unknown time metFORMIN (GLUCOPHAGE) 500 MG tablet Take 500 mg by mouth 2 (two) times daily with meal s. 04/30/2018 at Unknown time Metoprolol Succinate 25 MG CS24 Take by mouth. 04/30/2018 at Unknown time Multiple Vitamins-Minerals (MULTIVITAMIN WITH MINERALS) tablet Take 1 tablet by mouth d aily. 04/30/2018 at Unknown time nitroGLYCERIN (NITROSTAT) 0.[address] 0.4 mg under the tongue every 5 (five) minutes as needed for Chest pain. 04/30/2018 at Unknown time pantoprazole (PROTONIX) 40 MG tablet Take 40 mg by mouth 2 (two) times daily. 04/30/20 18 at Unknown time ranitidine (ZANTAC) 300 MG tablet Take 300 mg by mouth nightly. 04/30/2018 at Unknown time sacubitril-valsartan (ENTRESTO) 49-51 MG per tablet Take 1 tablet by mouth 2 (two) time s daily. 04/30/2018 at Unknown time traMADol (ULTRAM) 50 MG tablet Take 50 mg by mouth every 6 (six) hours as needed for Pa in. 04/30/2018 at Unknown time No family history on file. Social History Social History Marital status: Spouse name: N/A Number of children: N/A Years of education: N/A Occupational History Not on file. Social History Main Topics Smoking status: Never Smoker Smokeless tobacco: Never Used Alcohol use No Drug use: No Sexual activity: Not on file Other Topics Concern Not on file Social History Narrative No narrative on file PHYSICAL EXAM BP 114/75 | Pulse 87 | Temp 97.8 F (36.6 C) | Resp 16 | Ht 1.753 m (5' 9") | Wt 97 .2 kg (214 lb 4.6 oz) | SpO2 95% | BMI 31.64 kg/m Gen: AOX3. NAD HEENT: NCAT CV: RRR. S1S2 normal. no murmer, rubs, or gallops. No JVD Chest: CTA b/l Abd: SNTND. BS+, no gaurding or ridigity Ext: +trace edema. 2+ DP Neuro: Motor/sensations intact. 2+ DTRs DATA CBC: Lab Results Component Value Date WBC 7.26 05/01/2018 RBC 4.43 05/01/2018 HGB 13.8 05/01/2018 HCT 40.2 05/01/2018 MCV 90.8 05/01/2018 MCH 31.2 05/01/2018 MCHC 34.4 05/01/2018 RDW 45.5 05/01/2018 PLT 156 05/01/2018 MPV 8.9 05/01/2018 DIFFTYPE AUTOMATED 05/01/2018 CMP: Lab Results Component Value Date NA 140 05/01/2018 K 4.5 05/01/2018 CL 107 05/01/2018 CO2 24 05/01/2018 ANIONGAP 13 05/01/2018 GLUF 121 (H) 05/01/2018 BUN 27 (H) 05/01/2018 CREATININE 1.8 (H) 05/01/2018 BCR 15 05/01/2018 CA 8.2 (L) 05/01/2018 PROT 7.2 05/01/2018 ALB 3.4 05/01/2018 GLOB 3.9 05/01/2018 BILITOT 0.4 05/01/2018 ALP 103 05/01/2018 AST 13 05/01/2018 ALT 20 05/01/2018 EGFR 38 (L) 05/01/2018 BMP: Lab Results Component Value Date NA 140 05/01/2018 K 4.5 05/01/2018 CL 107 05/01/2018 CO2 24 05/01/2018 ANIONGAP 13 05/01/2018 GLUF 121 (H) 05/01/2018 BUN 27 (H) 05/01/2018 CREATININE 1.8 (H) 05/01/2018 BCR 15 05/01/2018 CA 8.2 (L) 05/01/2018 EGFR 38 (L) 05/01/2018 IMAGING: Xr Chest Pa And Lateral Result Date: 05/01/2018 Left midlung platelike atelectasis. Lungs are otherwise clear. LEM LIST Principal Problem: Dyspnea Active Problems: COPD (chronic obstructive pulmonary disease) ([facility]) Benign essential hypertension Hyperlipidemia CAD (coronary artery disease) Acute on chronic systolic congestive heart failure (HCC) Acute renal failure superimposed on stage 3 chronic kidney disease (HCC) ASSESSMENT & PLAN Dyspnea: most likely 2/2 mild congestive heart failure and suspected sleep apnea. Will need outpatient sleep study, ordered IV lasix. Acute on chronic systolic congestive heart failure: Chest x-ray at outside facility shows p ulmonary edema. Will give IV lasix x 1 and increase oral lasix to 20mg BID. Most likely 2/2 non compliance with fluids. Monitor I/Os and daily weights, 1.5L fluid restriction, 2gm salt restriction. Last echo done in 03/24 from care everywhere showed EF 40-35%. Patient has BiVC D, had interrogation today with no arrythmias detected. Acute renal failure superimposed on stage 3 chronic kidney disease: baseline 1.3-1.5 per re cords from care everywhere. Possibly cardiorenal. Ordered IV lasix, monitor creatinine, hold ing lisinopril. Avoid nephrotoxins. Elevated troponin in a patient with history of extensive CAD: s/p multiple stents in 03/23, 10/25. Dr. Hansen consulted, feels this is demand 2/2 transient hypoxemia from suspected OS A. He recommends stress test. Will trend troponins. EKG shows v-paced rhythm. Ordered stress test for AM. COPD: stable, does not appear to be in exacerbation, continue home INH. Benign essential hypertension: BP controlled, continue home antihypertensives. Hyperlipidemia: continue statin. Obesity/suspected LOUISA; patient in the process of getting second part of sleep study. Disposition: inpatient Code Status: Full Code DVT PPx: lovenox SQ Diet: Primary Care Physician: Chato Sherman MD 05/01/2018 documented in this en counter Procedure Notes Mili Viera ARNP - 05/02/2018 10:04 AM PDTFormatting of this note might be different fr om the original. Procedures by ADARSH Reyes at 05/02/18 1004 Author: ADARSH Reyes Service: Radiology Author Type: Advanced Registered Nurse Yuki fields Filed: 05/02/18 1005 Date of Service: 05/02/18 100 Status: Signed Acid Cutter: ADARSH Reyes (Advanced Registered Nurse Practitioner) Pre-procedure Diagnoses: 1. Chest pain, unspecified type [R07.9] Post-procedure Diagnoses: 1. Chest pain, unspecified type [R07.9] Procedures: 1. NM MYOCARDIAL PERFUSION SPECT - STRESS AND REST [[id number] (Custom)] [facility] Service: Diagnostic Imaging/Nuclear Medicine Cardiac Stress Test Note Type of Stress Test performed (protocol): Pharmacologic stress test Rj protocol time (if applicable): N/A Rhythm changes: Paced Ectopy: PVCs Symptoms experienced during exam: None ST/T wave changes: None Medications administered: Lexiscan 0.4 mg Grijalva Treadmill Score: N/A Comments: None documented in this encounter Consult Notes Alo Garcia Jr., MD - 05/10/2018 4:17 PM PDT Consult* by Alo Garcia MD at 05/10/18 1617 Author: Alo Garcia MD Service: Cardiac, Thoracic, and Vascular Surgery Author Type: Physician Filed: 05/10/18 1621 Date of Service: 05/10/181616 Status: Signed Acid Cutter: Alo Garcia MD (Physician) [facility] Service: Cardiothoracic Surgery Initial Consult Note Date of Admission: 05/01/2018 Reason for Consultation: Evaluation for surgical revascularization Requesting Physician: Dr. Hansen, Cardiology History Obtained From: patient CHIEF COMPLAINT: Dyspnea HISTORY OF PRESENT ILLNESS The patient is a 62 y.o. male with significant past medical history of CAD(SVL-[id number]-[id number]-Ca rdiogenic [id number]-KLBK-SYMQ-10/2017), COPD, CKD, HTN, HTN admitted with dyspnea. He was diagnos ed with a NSTEMI. He underwent cardiac angiography on 05/03/18. I have reviewed the films. Th re appears to be recurrent disease in the distal LM and ostium of circumflex. We are asked t o evaluate the patient for surgical revascularization. He is currently asymptomatic. 05/10/18:Thallium completed:Anterior wall is non-viable. REVIEW OF SYSTEMS Review of Systems Constitutional: Positive for fatigue. Respiratory: Positive for shortness of breath. Negative for cough. Cardiovascular: Negative for chest pain, palpitations and leg swelling. Gastrointestinal: Negative for abdominal distention, abdominal pain, blood in stool, diarrh ea and nausea. Genitourinary: Negative for dysuria, frequency and hematuria. Musculoskeletal: Negative for arthralgias, back pain, joint swelling and myalgias. Skin: Negative for pallor. Neurological: Negative for dizziness and numbness. Psychiatric/Behavioral: Negative. Past Medical History Diagnosis Date Arthritis Chronic obstructive pulmonary disease (HCC) Congestive heart failure (HCC) Hyperlipidemia Hypertension Old myocardial infarction 2017 Past Surgical History Procedure Laterality Date CARDIAC CATHETERIZATION stent placed CHOLECYSTECTOMY echmo 2017 NASAL SEPTUM SURGERY PACEMAKER INSERTION defibrilater No Known Allergies Prescriptions Prior to Admission Medication Sig Dispense Refill Last Dose acetaminophen (TYLENOL) 500 MG tablet Take 1,000 mg by mouth every 6 (six) hours as nee ded for Pain. Taking at Unknown time aspirin 81 MG tablet Take 81 mg by mouth daily. Taking at Unknown time atorvastatin (LIPITOR) 80 MG tablet Take 80 mg by mouth nightly. Taking at Unknown ti me clopidogrel (PLAVIX) 75 MG tablet Take 75 mg by mouth daily. Taking at Unknown time furosemide (LASIX) 20 MG tablet Take 20 mg by mouth daily. Taking at Unknown time gabapentin (NEURONTIN) 300 MG capsule Take 300 mg by mouth 3 (three) times daily. Jose ing at Unknown time HYDROcodone-acetaminophen (NORCO) 10-325 MG per tablet Take 1 tablet by mouth every 6 ( six) hours as needed for Pain. Taking Different at furosefur melatonin 3 MG TABS Take 3 mg by mouth nightly. Taking at Unknown time metFORMIN (GLUCOPHAGE) 500 MG tablet Take 500 mg by mouth 2 (two) times daily with meal s. Taking at Unknown time Metoprolol Succinate 25 MG CS24 Take by mouth. Taking at Unknown time Multiple Vitamins-Minerals (MULTIVITAMIN WITH MINERALS) tablet Take 1 tablet by mouth d aily. Taking at Unknown time nitroGLYCERIN (NITROSTAT) 0.[address] 0.4 mg under the tongue every 5 (five) minutes as needed for Chest pain. Taking at Unknown time pantoprazole (PROTONIX) 40 MG tablet Take 40 mg by mouth 2 (two) times daily. Taking at Unknown time ranitidine (ZANTAC) 300 MG tablet Take 300 mg by mouth nightly. Taking at Unknown brenda e sacubitril-valsartan (ENTRESTO) 49-51 MG per tablet Take 1 tablet by mouth daily. Jsoe ing Different at Unknown time traMADol (ULTRAM) 50 MG tablet Take 50 mg by mouth every 6 (six) hours as needed for Pa in. Taking at Unknown time lisinopril (ZESTRIL) 10 MG tablet Take 10 mg by mouth daily. Not Taking at Unknown ti me Scheduled Medications amiodarone 400 mg Oral TID aspirin 81 mg Oral Daily with breakfast atorvastatin 80 mg Oral Nightly famotidine 20 mg Oral BID gabapentin 300 mg Oral TID insulin lispro (human) 0-3 Units Subcutaneous Nightly insulin lispro (human) 0-6 Units Subcutaneous TID AC melatonin 3 mg Oral Nightly metoprolol 25 mg Oral Daily multivitamin with minerals 1 tablet Oral Daily pantoprazole 40 mg Oral BID sacubitril-valsartan 1 tablet Oral BID sodium chloride 10 mL Intravenous Q8H Continuous Infusions dextrose heparin 50 units/mL 12.58 Units/kg/hr (09/03/18 0829) PRN Medications acetaminophen OR acetaminophen, dextrose, dextrose, dextrose, glucagon, glucagon, hepar in (porcine) 5000 unit/0.5mL, heparin (porcine) 5000 unit/0.5mL, HYDROcodone-acetaminophen, nitroGLYCERIN, ondansetron OR ondansetron, perflutren lipid microspheres, polyethylene g lycol, regadenoson, sodium chloride 0.9 %, traMADol, zolpidem Family History Problem Relation Age of Onset Colon cancer Mother Heart Disease Father History Smoking Status Former Smoker Packs/day: 2.00 Years: 40.00 Types: Cigarettes Smokeless Tobacco Never Used PHYSICAL EXAM Vital Signs: BP 121/71 (BP Location: Right upper arm) | Pulse 75 | Temp 97.8 F (36.6 C) (Oral) | Resp 18 | Ht 1.753 m (5' 9") | Wt 95.2 kg (209 lb 14.1 oz) | SpO2 97% | BMI 30.99 kg/m Temp: [97.6 F (36.4 C)-97.9 F (36.6 C)] 97.8 F (36.6 C) (05/10 155) BP: (99-134)/(56-78) 121/71 (05/10 1554) Heart Rate: [71-77] 75 (05/10 1554) Resp: [18] 18 (05/10 155) SpO2: [90 %-97 %] 97 % (05/10 1554) Physical Exam Constitutional: He is oriented to person, place, and time. Vital signs are normal. He appea rs well-developed and well-nourished. HENT: Head: Normocephalic and atraumatic. Eyes: Conjunctivae and lids are normal. Neck: Trachea normal and normal range of motion. Neck supple. No JVD present. Cardiovascular: Normal rate and regular rhythm. Pulmonary/Chest: Effort normal and breath sounds normal. Abdomina/Gl: Soft. Musculoskeletal: He exhibits no edema. Neurological: He is alert and oriented to person, place, and time. No cranial nerve deficit . Skin: Skin is warm. No cyanosis. DATA Cath:05/03/18:Recurrent disease in LM stent with involvement of ostium of circumflex Echo:05/01/18:EF 20% PROBLEM LIST Principal Problem: CAD (coronary artery disease) Active Problems: COPD (chronic obstructive pulmonary disease) (HCC) Hyperlipidemia Dyspnea Chronic systolic CHF (congestive heart failure) (HCC) Acute renal failure superimposed on stage 3 chronic kidney disease (HCC) ASSESSMENT & PLAN 62 Y/O WM with recent LM stenting at [facility] complicated by cardiogenic shock requiring ECMO. The patient has recurrent disease in the LM stent involving the ostium of the circumflex. Non-viable anterior wall. Recommend High risk CABG with VAD back-up at [facility]. Code Status: Full Code Primary Care Physician: Chato Matson Thank you for allowing me to participate in the care of this patient. ALO GARCIA MD 05/10/2018 Isael Ramires M D - 05/06/2018 7:13 PM PDT Consult* by Isael Thakkar MD at 05/06/181912 Author: Isael Thakkar MD Service: Pulmonology Author Type: Physician Filed: 05/06/181946 Date of Service: 05/06/181912 Status: Addendum Acid Cutter: Isael Thakkar MD (Physician) Related Notes: Original Note by Isael Thakkar MD (Physician) filed at 05/06/181944 [facility] Service: PULMONOLOGY Initial Consult Note Date of Admission: 05/01/2018 Reason for Consultation: Preoperative risk assessment Requesting Physician: Dr gorman/ dr garcia , Hospitalist History Obtained From: patient, spouse CHIEF COMPLAINT: Shortness of breath HISTORY OF PRESENT ILLNESS 62-year-old male with history of hyperlipidemia, COPD, previous smoker, chronic systolic co ngestive heart failure, ischemic cardiomyopathy EF of 30 percent status post defibrillator, coronary artery disease ST elevation NC in 03/2017 status post stent left main to LAD and lef t circumflex, left atrial clot previously on Coumadin, recent admission in another hospital for special care on on 10/2007 for pneumonia and transferred to [facility] for unstable angina status post ANY . The patient says that since he had pneumonia ,he says that he feels scared every time he h as shortness of breath. He says he was sleeping and woke up around midnight with complaints of shortness of breath. He started and sat right next to the bed and woke up his . He was taken to [facility] where he was found to have a marginally elevated tropo madalyn along with BNP which was high. He was given Lasix and DuoNeb. The patient was found to have ejection fraction of 25-30% with a akinetic apex. The patient underwent further cardiac workup and had nonsustained V. tach. He underwent le ft coronary angiogram. He was found to have in-stent restenosis. The patient has been followed up at [facility] where BEARING INSPECTOR device was placed. He says at that time he had been evaluated extensively by cardiothoracic team and cardiology and he was opted fo r conservative management with stenting due to unclear reasons. He has been [facility] with [facility]. He does not use any inhalers. He denies any frequent COPD exace rbations. Most of his admissions are managed with diuretics and he does not recall when he was treated with prednisone. He does not wheeze. He walks with a cane and has an average e xercise tolerance. He has been walking around on the floors. Patient has a history of smoking for many years which he quit a year ago. REVIEW OF SYSTEMS Review of Systems Constitutional: Negative. HENT: Negative. Eyes: Negative. Respiratory: Negative. Cardiovascular: Negative. Gastrointestinal: Negative. Genitourinary: Negative. Musculoskeletal: Negative. Skin: Negative. Neurological: Negative. Endo/Heme/Allergies: Negative. Psychiatric/Behavioral: Negative. Past Medical History Diagnosis Date Arthritis Chronic obstructive pulmonary disease (HCC) Congestive heart failure (HCC) Hyperlipidemia Hypertension Old myocardial infarction 2017 Past Surgical History Procedure Laterality Date CARDIAC CATHETERIZATION stent placed CHOLECYSTECTOMY echmo 2017 NASAL SEPTUM SURGERY PACEMAKER INSERTION defibrilater No Known Allergies Prescriptions Prior to Admission Medication Sig Dispense Refill Last Dose acetaminophen (TYLENOL) 500 MG tablet Take 1,000 mg by mouth every 6 (six) hours as nee ded for Pain. Taking at Unknown time aspirin 81 MG tablet Take 81 mg by mouth daily. Taking at Unknown time atorvastatin (LIPITOR) 80 MG tablet Take 80 mg by mouth nightly. Taking at Unknown ti me clopidogrel (PLAVIX) 75 MG tablet Take 75 mg by mouth daily. Taking at Unknown time furosemide (LASIX) 20 MG tablet Take 20 mg by mouth daily. Taking at Unknown time gabapentin (NEURONTIN) 300 MG capsule Take 300 mg by mouth 3 (three) times daily. Jose ing at Unknown time HYDROcodone-acetaminophen (NORCO) 10-325 MG per tablet Take 1 tablet by mouth every 6 ( six) hours as needed for Pain. Taking Different at furosefur melatonin 3 MG TABS Take 3 mg by mouth nightly. Taking at Unknown time metFORMIN (GLUCOPHAGE) 500 MG tablet Take 500 mg by mouth 2 (two) times daily with meal s. Taking at Unknown time Metoprolol Succinate 25 MG CS24 Take by mouth. Taking at Unknown time Multiple Vitamins-Minerals (MULTIVITAMIN WITH MINERALS) tablet Take 1 tablet by mouth d aily. Taking at Unknown time nitroGLYCERIN (NITROSTAT) 0.[address] 0.4 mg under the tongue every 5 (five) minutes as needed for Chest pain. Taking at Unknown time pantoprazole (PROTONIX) 40 MG tablet Take 40 mg by mouth 2 (two) times daily. Taking at Unknown time ranitidine (ZANTAC) 300 MG tablet Take 300 mg by mouth nightly. Taking at Unknown brenda e sacubitril-valsartan (ENTRESTO) 49-51 MG per tablet Take 1 tablet by mouth daily. Jose ing Different at Unknown time traMADol (ULTRAM) 50 MG tablet Take 50 mg by mouth every 6 (six) hours as needed for Pa in. Taking at Unknown time lisinopril (ZESTRIL) 10 MG tablet Take 10 mg by mouth daily. Not Taking at Unknown ti me Scheduled Medications amiodarone 400 mg Oral TID aspirin 81 mg Oral Daily with breakfast atorvastatin 80 mg Oral Nightly enoxaparin 40 mg Subcutaneous Q24H famotidine 20 mg Oral BID furosemide 20 mg Oral Daily gabapentin 300 mg Oral TID insulin lispro (human) 0-3 Units Subcutaneous Nightly insulin lispro (human) 0-6 Units Subcutaneous TID AC melatonin 3 mg Oral Nightly metoprolol 25 mg Oral Daily multivitamin with minerals 1 tablet Oral Daily pantoprazole 40 mg Oral BID sacubitril-valsartan 1 tablet Oral BID sodium chloride 10 mL Intravenous Q8H Continuous Infusions dextrose heparin 50 units/mL 12.58 Units/kg/hr (05/06/18 1203) PRN Medications acetaminophen OR acetaminophen, dextrose, dextrose, dextrose, glucagon, glucagon, hepar in (porcine) 5000 unit/0.5mL, heparin (porcine) 5000 unit/0.5mL, HYDROcodone-acetaminophen, nitroGLYCERIN, ondansetron OR ondansetron, perflutren lipid microspheres, polyethylene g lycol, regadenoson, sodium chloride 0.9 %, traMADol, zolpidem No family history on file. Social History Social History Marital status: Spouse name: N/A Number of children: N/A Years of education: N/A Occupational History Not on file. Social History Main Topics Smoking status: Never Smoker Smokeless tobacco: Never Used Alcohol use No Drug use: No Sexual activity: Not on file Other Topics Concern Not on file Social History Narrative No narrative on file PHYSICAL EXAM Vital Signs: BP 129/64 (BP Location: Left upper arm) | Pulse 73 | Temp 97.4 F (36.3 C) (Oral) | R anaid 16 | Ht 1.753 m (5' 9") | Wt 95 kg (209 lb 7 oz) | SpO2 96% | BMI 30.93 kg/m I/O last 3 completed shifts: In: 836 [P.O.:836] Out: 4800 [Urine:4800] No intake/output data recorded. Physical Exam Vital signs reviewed. GENERAL: pleasant, cooperative, oriented, not in distress HEENT: pink conjunctiva, anicteric sclerae, moist oral mucosae and without any lesions, nor mal appearing nasal mucosae; no JVD; MALAMPATTI _2__; no thyromegaly; no cervicolymphadenopa bethel CVS: PMI non displaced, NRRR, S1 and S2, no murmurs/gallops/rubs CHEST: Examination of the chest was unremarkable. There were no bony deformities, no asymme try, and no other abnormalities. LUNGS: Normal effort, Equal in expansion, resonant to percussion, clear and equal breath so unds, no wheezes/rales/rhonchi ABDOMEN: Flat abdomen, NABS, non-tender on palpation, Traube's space intact, liver span nor mal, no masses palpated EXTREMITIES: good distal pulses, no cyanosis, no edema, no clubbing, no nail abnormalities NEURO: awake and oriented, gait normal, no focal neurologic deficits DATA CBC: Recent Labs Lab 05/06/1844805/04/18 0851 05/04/189 05/03/18 0512 WBC 8.31 7.79 6.52 6.33 RBC 4.65 4.61 4.44 4.29 HGB 14.7 14.4 13.9 13.3 HCT 42.0 42.4 40.1 38.9* MCV 90.5 92.1 90.3 90.8 MCH 31.5 31.2 31.3 31.1 MCHC 34.8 33.9 34.6 34.2 RDW 46.8 46.4 45.5 45.9 PLT 176 161 140* 142* MPV 9.2 8.0 9.0 9.0 DIFFTYPE AUTOMATED -- AUTOMATED AUTOMATED Platelets: Recent Labs Lab 05/06/1844805/04/18 0851 05/04/18 0359 PLT 176 161 140* CMP: Recent Labs Lab 05/06/1844805/04/189 05/03/18 0512 05/01/18 0815 NA 139 139 143 < > 140 K 4.4 4.3 4.4 < > 4.5 CL 105 107 110* < > 107 CO2 26 22* 24 < > 24 BUN 25 27* 29* < > 27* CREATININE 1.6* 1.5* 1.4* < > 1.8* PROT -- -- 7.0 -- 7.2 BILITOT -- -- 0.4 -- 0.4 ALT -- -- 30 -- 20 AST -- -- 22 -- 13 < > = values in this interval not displayed. Calcium: No results for input(s): CALCIUM in the last 168 hours. Magnesium: Recent Labs Lab 05/04/1835805/02/18 0437 MG 2.4 2.5* Pulmonary Functions Testing Results: No results found for: FEV1, FVC, [id number], TLC, DLCO Xr Chest Pa And Lateral Result Date: 05/01/2018 RON MIKE 1955 62 years Male XR CHEST 2 VIEW FRONTAL AND LATERAL 05/01/2018 9:07 AM INDICATION: Shortness of breath COMPARISON: None. TECHNIQUE: Two view chest, PA and late ral views FINDINGS: Left pacemaker/ICD with intact leads. Left midlung mild platelike atelec tasis. The lungs are otherwise clear. No pneumothorax, no pleural effusion. Heart size and m ediastinal contours are normal. No acute osseous abnormality. Left midlung platelike atelectasis. Lungs are otherwise clear. Ct Chest Without Contrast Result Date: 05/04/2018 HISTORY: Pulmonary edema. Chest pain. Coronary artery disease. Non-ST elevation myocardial infarction. COMPARISON: Coronary arteriography 05/03/18. Myocardial perfusion study 05/02/18 . Echocardiography 05/01/18. Chest x-ray 05/01/18. TECHNIQUE: 5-mm axial CT images were acqu ired using automated exposure control through the chest. Oral Contrast: None IV contrast: No ne. FINDINGS: Mild focal aortic ectasia along the lateral arch sequence 3 image 36 measuring 2.2 cm AP by approximately 0.6 cm transverse (total transverse aortic dimension 3 cm, ronan red with 2.5 cm of the adjacent mid aortic arch). Normal caliber of the aorta otherwise note d, with mid ascending aortic AP diameter of 3.3 cm. Mild aortic and coronary arterial calcif ication. Proximal LAD and circumflex stenting better defined on coronary arteriography. Perh aps mild left ventricular dilatation, without further chamber dilatation. Sequential AICD. C alcified granuloma in the medial right lung base and anterior right upper lobe along the min or fissure strandy atelectasis in the posterior lung bases. Centrilobular emphysematous de la cruz ge greater in the right than left upper to midlung zone. No hilar or mediastinal adenopathy. Scans through the upper abdomen show opaque material in the stomach. Clips in the gallbladd er fossa partially included. Tiny hypodensities along the anterior and posterior dome of the lateral left hepatic lobe both measuring 6 mm, too small to characterize, likely representi ng small cysts or hemangiomata. Bone windows show mild spondylotic changes of the spine. No compression deformities. 1. No pulmonary edema, infiltrates, or effusions. 2. Centrilobular emphysematous change o f the right greater than left upper to midlung zone, with previous granulomatous disease. 3. Minimal focal ectasia of the lateral aortic arch, with mild atheromatous changes of the ao rta and coronaries, again with coronary arterial stents noted. Vt Myocardial Perfusion Spect (stress And Rest) Result Date: 05/02/2018 RON MCKEON ID MYOCARDIAL PERFUSION SPECT - STRESS AND REST HISTORY: 62 years. Male. C hest pain TECHNIQUE: A same day protocol was used. For the resting portion of the study the patient was injected intravenously with 11.3 mCi technetium 99m Myoview. Gated SPECT imagi ng was performed in the supine position. The patient was then pharmacologically stressed usi ng a regadenoson protocol. The patient received 0.4 mg of regadenoson intravenously. The p atient was intravenously administered 30 mCi technetium 99m Myoview. Gated SPECT images were acquired in the prone and supine positions. COMPARISON: None. FINDINGS: Decreased uptake o f the myocardium at the distal anterior wall, septum and apex on stress and rest consistent with infarction. Dilated left ventricular cavity consistent with ischemic cardiomyopathy. Ap parent decreased uptake on the stress as compared to the rest images at the lateral wall imp roves on the prone images. The following functional data was obtained: STRESS: End-diastolic volume: 290 mL End-systolic volume: 237 mL Ejection fraction: 18% REST: End-diastolic volum e: 278 mL End-systolic volume: 233 mL Ejection fraction: 16% 1. Decreased uptake on stress and rest of the anterior wall, septum and apex consistent wi th infarct. Dilation of the left ventricular cavity consistent with ischemic cardiomyopathy. (High risk) 2. Left ventricular ejection fraction is calculated at 18%. Risk stratificatio n according to the [place] [employer] and [place] [employer] Scientific Statement. Circulation (2008); 118: p 1497-518. Definitions: Low risk: 1. Normal or small my ocardial perfusion defect at rest or with stress.* 2. No change of resting wall motion abnor malities during stress.* Intermediate risk: 1. Mild/moderate resting left ventricular dysfun ction (LVEF = 35% to 49%). 2. Stress-induced moderate perfusion defect without left ventricu lar dilation or increased lung intake. High risk: 1. Severe resting left ventricular dysfunc tion (exercise LVEF < 35%). 2. Severe exercise left ventricular dysfunction (exercise LVEF < 35%). 3. Stress-induced large perfusion defect (particularly if anterior). 4. Stress-induce d multiple perfusion defects of moderate size. 5. Large, fixed perfusion defect with left ve ntricular dilation. 6. Stress-induced moderate perfusion defect with LV dilation. * Although the published data are limited, patients with these findings will probably not be at low ri sk in the presence of either a high risk treadmill score or severe resting left ventricular dysfunction (LVEF < 35%). X-ray Chest 1 View Result Date: 05/01/2018 This is a non-reportable procedure without a radiologist report and is used for image stora ge only Us Kidneys And Bladder Result Date: 05/04/2018 RON MCKEON 1955 US KIDNEYS AND BLADDER 05/04/2018 11:05 AM HISTORY: Chronic kidne y disease COMPARISON: None. TECHNIQUE: Transabdominal ultrasound of the kidneys and bladder, grayscale and color flow evaluation. FINDINGS: Evaluation of the lower poles of the kidneys slightly restricted by bowel gas. The right left kidneys measure 10.0 x 3.7 x 4.4 cm and 9. 9 x 5.2 x 4.9 cm respectively. No shadowing stone or hydronephrosis is demonstrated. The clemente dder is incompletely distended measuring 80 mL prevoid. Postvoid residual of 14 mL. Right ur eteral jet was not visualized. 1. No shadowing renal stones or hydronephrosis. 2. Postvoid bladder residual of 14 mL. El ectronically signed by Macho Dejesus on 05/04/2018 11:16 AM Cl Coronary Angio Result Date: 05/03/2018 DA TE OF PROCEDURE: 05/03/2018 PROCEDURE: Left heart catheterization and coronary angiography . ESTIMATED BLOOD LOSS: * * * RESULTS: Aortic pressure 93/60, with a mean of 46. Left bhargav tricular was not entered in an effort to save contrast. ARTERIOGRAPHY: The left main ordaz ry artery is previously stented. At the distal left main, there is restenosis involving the takeoff of both LAD and left circumflex. The left circumflex branch has a 95-99% restenosi s. The left anterior descending is more difficult to evaluate for exactly how tight it is, b ut there is what is probably pannus formation inside the LAD that is partially occluding. T he right coronary artery has minor, nonobstructive disease and is a large, dominant artery. IMPRESSION: In-stent restenosis in the distal left main and left anterior descending, left circumflex area. As this area was stented with drug-eluting stents right at a year ago, it would not seem the best approach would be to restent it, so I think I am going to have cardi ac surgery see about revascularization options. Read by DEISY HANSEN MD 05/03/2018 12:51 P Echo Cardiac Adult With Contrast Result Date: 05/03/2018 Patient Name: RNO MCKEON Date of : 1955 Performing Physician: Deisy Hansen MD ------REPORT ADDENDED------ INDICATIONS SOB CONCLUSIONS 1. Ov erall left ventricular systolic function is severely impaired with, an EF between 25 - 30 %. 2. apex - akinetic; FINDINGS -------- ECG rhythm: Sinus rhythm. Study: A 2-dimensional bergman sthoracic echocardiogram with m-mode, spectral and color flow Doppler was perfomed. Left Bhargav tricle: Overall left ventricular systolic function is severely impaired with, an EF between 25 - 30 %. Left Ventricle: The left ventricle cavity size is normal. Left Ventricle: Left ve ntricular wall thickness is normal. Left Ventricle: The diastolic filling pattern indicates impaired relaxation consistent with mild dysfunction (Grade I). Severe hypokinesis of all w alls with perserved function to the anterolateral wall and the anterior wall. Left Ventricle : apex - akinetic; Right Ventricle: Pacer/ICD wire seen. Right Atrium: Pacemaker wire seen i n the right atrial cavity. Aortic Valve: The aortic valve was not well visualized. Aortic Va lve: There is no evidence of aortic regurgitation. Aortic Valve: There is no evidence of aor tic stenosis. Mitral Valve: The mitral valve is normal. Mitral Valve: Mild mitral regurgitat ion is present. Tricuspid Valve: The tricuspid valve appears structurally normal. Tricuspid Valve: Trace tricuspid regurgitation present. Tricuspid Valve: Pulmonary artery systolic pre ssure could not be assessed due to the absence of adequate TR jet. Pulmonic Valve: The pulmo chin valve was not well visualized. Pericardium: There is no pericardial effusion. IVC/Hepati c Veins: The IVC is normal size (1.5-2.5cm) and collapses >50% with sniff, consistent with c entral venous pressures of 5-10mmHg. Aorta: Atherosclerotic changes noted in abdominal aorta . Mass: No mass visualized Thrombus: No clot visualized Septum: No ASD observed. Septum: No VSD observed. MEASUREMENTS RA Area: 14.70 cm2 Ao asc: 2.83 cm IVC: 1.98 cm EDV(Teich): 149.69 ml IVSd: 1.02 cm LVIDd: 5.53 cm LVPWd: 1.01 cm LVOT Diam: 1. 98 cm %FS: 13.14 % EF(Teich): 27.86 % ESV(Teich): 107.98 ml IVSs: 0.96 cm LVIDs: 4 .80 cm LVPWs: 1.32 cm SV(Teich): 41.70 ml LVEF MOD A2C: 27.63 % SV MOD A2C: 57.13 ml LVEF MOD A4C: 24.64 % SV MOD A4C: 58.14 ml EF Biplane: 24.47 % LVEDV MOD BP: 222.41 ml LVESV MOD BP: 167.97 ml LVEDV MOD A2C: 206.76 ml LVLd A2C: 9.81 cm LVEDV MOD A4C: 235.89 ml LVLd A4C: 9.62 cm LVESV MOD A2C: 149.62 ml LVLs A2C: 9.72 cm LVESV MOD A4C : 177.75 ml LVLs A4C: 9.09 cm LAESV(A-L): 77.87 ml LAESV Index (A-L): 36.55 ml/m2 LA As A2C: 24.13 cm2 LAESV A-L A2C: 87.75 ml LALs A2C: 5.63 cm LAAs A4C: 20.35 cm2 LAES V A-L A4C: 65.67 ml LALs A4C: 5.35 cm Ao Diam: 3.38 cm LA Diam: 4.41 cm LA/Ao: 1.3 0 TAPSE: 1.84 cm HR: 77.85 BPM AV maxP.75 mmHg AV meanP.02 mmHg AV Vmax: 1 .09 m/s AV Vmean: 0.83 m/s AV VTI: 19.10 cm MABEL Vmax: 2.61 cm2 MABEL (VTI): 2.73 cm2 A VAI Vmax: 0.00 cm2/m2 AVAI (VTI): 0.00 cm2/m2 LVCI Dopp: 1.86 l/minm2 LVCO Dopp: 3.9 7 l/min HR: 76.15 BPM LVOT maxP.39 mmHg LVOT meanP.27 mmHg LVSI Dopp: 24.51 ml/m2 LVSV Dopp: 52.21 ml LVOT Vmax: 0.92 m/s LVOT Vmean: 0.72 m/s LVOT VTI: 16.87 c m MV A Hasmukh: 0.97 m/s MV DecT: 194.63 ms MV E Hasmukh: 0.49 m/s MV E/A Ratio: 0.50 E/E' A v.49 E' Av.06 m/s E/E' Lat: 5.58 E/E' Sept: 11.41 E' Lat: 0.08 m/s E' Sept : 0.04 m/s PV maxP.13 mmHg PV Vmax: 1.01 m/s RV S': 0.09 m/s TV A Hasmukh: 0.64 m/ s TV Dec Stanton: 2.15 m/s2 TV Dec Time: 236.16 ms TV E Hasmukh: 0.50 m/s TV E/A Ratio: 0. 78 Account Manager Relief: JUNI Authenticated by: Deisy Hansen MD Report Date/Time: 05-03-2018 12:44 :37 1. Overall left ventricular systolic function is severely impaired with, an EF between 25 - 30 %. 2. apex - akinetic; Results No results found for the last 72 hours. 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 A bedside spirometry was done which was good quality. There is no obstructive impairment b ased on FEV1/FVC ratio. The FEV1, FVC are both in the normal range. His COPD although sign ificant on CT ( emphysema) does not seem to be having much clinical significance as he has t olerated many procedures without any problem. He does not have any cough with expectoration , wheezing and is been very stable without use of any inhalers. He denies any frequent COPD exacerbations As far as COPD is concerned the patient is at a moderate risk for the planned procedure. Darshan arreola said that the patient has multiple episodes of paroxysmal nocturnal dyspnea and recurr ent congestive heart failure. He is ejection fraction is 20%. If the postoperative course is uneventful there will be no problem however if there is need for inotropic support, as se en in the past when he needed ECMO he may need to be transferred to a higher facility. At t his time he is very stable without any chest pain. 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 I suggest the case was discussed with the crystal evaluator at [facility] and we should try to find ou t as to why CABG was not done at that time. I did explain the patient that his respiratory comorbidities which is COPD/sleep apnea does not play a big role at this time. This is a high-risk patient who has an established care at a [facility] which is equ ipped with ECMO. He is well-known there. Unless it is urgent/emergent procedure I suggest the patient be discussed in a high risk multidisciplinary meeting with the plan of action fo r actions which need to be taken if he goes in refractory cardiac shock. The plan was discussed with Dr. Garcia Code Status: Full Code Primary Care Physician: Chato M Dano Thank you for allowing me to participate in the care of this patient. Isael Thakkar MD 05/06/2018 Mario Alberto Regan MD - 0 05/04/2018 10:49 AM PDT Consult* by Mario Alberto Brito MD at 05/04/181048 Author: Mario Alberto Brito MD Service: Nephrology Author Type: Physician Filed: 05/04/18 2239 Date of Service: 05/04/181048 Status: Signed Acid Cutter: Mario Alberto Brtio MD (Physician) Hospital Problem List: Principal Problem: CAD (coronary artery disease) Active Problems: COPD (chronic obstructive pulmonary disease) (HCC) Benign essential hypertension Hyperlipidemia Dyspnea Acute on chronic systolic congestive heart failure (HCC) Acute renal failure superimposed on stage 3 chronic kidney disease (HCC) I was asked by the hospital medicine team to see Mr. Mckeon in consult today. As the adm itting/consulting team is familiar with his case, I will not state his past history in detai l. Briefly, he is a 62 y.o. male patient with history as delineated in the Past Medical & Mckeon rgical History sections. I was called in to evaluate him for abnormal kidney function.. Background: This is a 62 M with h/o CAD transferred from [facility] on the with SOB, high Troponin. His Cre was 1.8. The pt noted that he had developed swelling in LE around that time. He was given Lasix which helped the swelling and the SOB. He was seen by cardiology and underwent L heart cath and based on finding he was recommended to undergo CABG. Nephrology was consult ed regarding abnormal Cre. Based on patient's records, at least since early 2017 his cre has been fluctuating between 1.3-1.5. The pt takes Excedrine couple pf times a day at least 4-5 times a week for the past 2-3 yrs. History & ROS obtained from : pt, chart review. The patient has history of stage III CKD. H e has history of prolonged exposure to NSAIDs, as above. He denies any recurrent nephrolithi asis or pyelonephritis. He also denies any history of urinary retention, gross hematuria, dy suria, or foamy urine. There is no family history of renal genetic diseases such as PKD. His baseline Creatinine is 1.3-1.5. He says that he feels 'good ' today. No history of blurred vision tinnitus, headache, feve r, chills, or cough. No nausea, vomiting, abdominal pain, diarrhea, melena, or hematochezia . No chest pain, palpitation, dizziness, loss of consciousness, orthopnea, paroxysmal noctu rnal dyspnea, or leg edema. No dysuria, incontinence, or symptoms of UTI. No history of fr equency, nocturia, weak urinary stream, hesitancy, intermittence, incomplete emptying or urg ency. He had 2 or 3 nightly nocturia. The following portions of the patient's history were reviewed and updated as appropriate: a llergies, current medications, past medical history, past social history, past surgical hist ory, family history and problem list. I also reviewed with his preadmission records; these w ere very informative. ROS: As in History of Present Illness above & Assessment below. All the twelve systems were reviewed and were otherwise negative. aspirin 81 mg Oral Daily with breakfast atorvastatin 80 mg Oral Nightly enoxaparin 40 mg Subcutaneous Q24H famotidine 20 mg Oral BID furosemide 20 mg Oral BID-Diuretics gabapentin 300 mg Oral TID insulin lispro (human) 0-3 Units Subcutaneous Nightly insulin lispro (human) 0-6 Units Subcutaneous TID AC melatonin 3 mg Oral Nightly metoprolol 25 mg Oral Daily multivitamin with minerals 1 tablet Oral Daily pantoprazole 40 mg Oral BID sacubitril-valsartan 1 tablet Oral BID sodium chloride 10 mL Intravenous Q8H dextrose heparin 50 units/mL 10.582 Units/kg/hr (05/04/18 0931) I/O last 3 completed shifts: In: 496 [P.O.:476; I.V.:20] Out: 1700 [Urine:1700] I/O this shift: In: 10 [I.V.:10] Out: 650 [Urine:650] P.E. BP 101/62 (BP Location: Left forearm) | Pulse 83 | Temp 97.8 F (36.6 C) (Oral) | Res p 18 | Ht 1.753 m (5' 9") | Wt 94.5 kg (208 lb 5.4 oz) | SpO2 94% | BMI 30.77 kg/m General appearance: Pleasant, not in acute distress. Neck: Supple without tracheal deviation or jugular venous distension. Head and ENT: Head is atraumatic. The oropharynx is without erythema or thrush. Eyes: Anicteric. The extraocular muscle movements are normal. Lungs: Clear to auscultation bilaterally. There are no wheezes. Heart: Regular rate and rhythm without any rub, gallop. Abdominal exam: Soft and nontender with normal bowel sounds. Musculoskeletal: No costovertebral angle tenderness bilaterally. Extremities: Warm to touch with no leg edema. There is no cyanosis. Skin: There are no rashes, petechiae, or ecchymosis. Neurological: Awake, alert, and oriented to time, place, and person. There is no asterixis . Psychiatric: The patient s behavior is normal. Judgment and thought content are normal. Lab Results Component Value Date BUN 27 (H) 05/04/2018 CREATININE 1.5 (H) 05/04/2018 EGFR 47 (L) 05/04/2018 NA 139 05/04/2018 K 4.3 05/04/2018 CL 107 05/04/2018 CO2 22 (L) 05/04/2018 CA 8.9 05/04/2018 PHOS 5.1 (H) 05/04/2018 MG 2.4 05/04/2018 ALB 3.4 05/04/2018 HGB 14.4 05/04/2018 Assessment/Recommendations: Mr. Mckeon is a 62 y.o. male patient with stage III CKD in the setting of longstanding H TN, NSAIDs he is scheduled to CABG in the next few days CKD III Cre at baseline Hold ACEI/ARB for now Renal US Change Lasix to 20 mg daily Avoid nephrotoxins Strict I&O Daily wt HTN Controlled now Metabolic Acidosis I will start Sodium bicarb 650 mg TID if bicarb is < 22 I discussed with the primary team the case at the time of this encounter. I spent 60 minutes today in interviewing & examining the patient, reviewing & updating the patient's chart, formulating a plan, in addition to patient education and discussions with t vikash primary/consulting team. Thank you for the opportunity to see this patient in consult today. Please do not hesitate to call me at any time with questions or concerns. Mario Alberto Brito MD FACP oAlo august Jr., MD - 05/04/2018 7:33 AM PDT Consult* by Alo Garcia MD at 05/04/18732 Author: Alo Garcia MD Service: Cardiac, Thoracic, and Vascular Surgery Author Type: Physician Filed: 05/04/18 0752 Date of Service: 05/04/18732 Status: Signed Acid Cutter: Alo Garcia MD (Physician) [facility] Service: Cardiothoracic Surgery Initial Consult Note Date of Admission: 05/01/2018 Reason for Consultation: Evaluation for surgical revascularization Requesting Physician: Dr. Hansen, Cardiology History Obtained From: patient CHIEF COMPLAINT: Dyspnea HISTORY OF PRESENT ILLNESS The patient is a 62 y.o. male with significant past medical history of CAD([facility]-Ca rdiogenic [id number]-RVFG-[id number]-10/2017), COPD, CKD, HTN, HTN admitted with dyspnea. He was diagnos ed with a NSTEMI. He underwent cardiac angiography on 05/03/18. I have reviewed the films. Th re appears to be recurrent disease in the distal LM and ostium of circumflex. We are asked t o evaluate the patient for surgical revascularization. He is currently asymptomatic. REVIEW OF SYSTEMS Review of Systems Constitutional: Positive for fatigue. Respiratory: Positive for shortness of breath. Negative for cough. Cardiovascular: Negative for chest pain, palpitations and leg swelling. Gastrointestinal: Negative for abdominal distention, abdominal pain, blood in stool, diarrh ea and nausea. Genitourinary: Negative for dysuria, frequency and hematuria. Musculoskeletal: Negative for arthralgias, back pain, joint swelling and myalgias. Skin: Negative for pallor. Neurological: Negative for dizziness and numbness. Psychiatric/Behavioral: Negative. Past Medical History Diagnosis Date Arthritis Chronic obstructive pulmonary disease (HCC) Congestive heart failure (HCC) Hyperlipidemia Hypertension Old myocardial infarction 2017 Past Surgical History Procedure Laterality Date CARDIAC CATHETERIZATION stent placed CHOLECYSTECTOMY echmo 2017 NASAL SEPTUM SURGERY PACEMAKER INSERTION defibrilater No Known Allergies Prescriptions Prior to Admission Medication Sig Dispense Refill Last Dose acetaminophen (TYLENOL) 500 MG tablet Take 1,000 mg by mouth every 6 (six) hours as nee ded for Pain. Taking at Unknown time aspirin 81 MG tablet Take 81 mg by mouth daily. Taking at Unknown time atorvastatin (LIPITOR) 80 MG tablet Take 80 mg by mouth nightly. Taking at Unknown ti me clopidogrel (PLAVIX) 75 MG tablet Take 75 mg by mouth daily. Taking at Unknown time furosemide (LASIX) 20 MG tablet Take 20 mg by mouth daily. Taking at Unknown time gabapentin (NEURONTIN) 300 MG capsule Take 300 mg by mouth 3 (three) times daily. Jose ing at Unknown time HYDROcodone-acetaminophen (NORCO) 10-325 MG per tablet Take 1 tablet by mouth every 6 ( six) hours as needed for Pain. Taking Different at furosefur melatonin 3 MG TABS Take 3 mg by mouth nightly. Taking at Unknown time metFORMIN (GLUCOPHAGE) 500 MG tablet Take 500 mg by mouth 2 (two) times daily with meal s. Taking at Unknown time Metoprolol Succinate 25 MG CS24 Take by mouth. Taking at Unknown time Multiple Vitamins-Minerals (MULTIVITAMIN WITH MINERALS) tablet Take 1 tablet by mouth d aily. Taking at Unknown time nitroGLYCERIN (NITROSTAT) 0.[address] 0.4 mg under the tongue every 5 (five) minutes as needed for Chest pain. Taking at Unknown time pantoprazole (PROTONIX) 40 MG tablet Take 40 mg by mouth 2 (two) times daily. Taking at Unknown time ranitidine (ZANTAC) 300 MG tablet Take 300 mg by mouth nightly. Taking at Unknown brenda e sacubitril-valsartan (ENTRESTO) 49-51 MG per tablet Take 1 tablet by mouth daily. Jose ing Different at Unknown time traMADol (ULTRAM) 50 MG tablet Take 50 mg by mouth every 6 (six) hours as needed for Pa in. Taking at Unknown time lisinopril (ZESTRIL) 10 MG tablet Take 10 mg by mouth daily. Not Taking at Unknown ti me Scheduled Medications aspirin 81 mg Oral Daily with breakfast atorvastatin 80 mg Oral Nightly enoxaparin 40 mg Subcutaneous Q24H famotidine 20 mg Oral BID furosemide 20 mg Oral BID-Diuretics gabapentin 300 mg Oral TID insulin lispro (human) 0-3 Units Subcutaneous Nightly insulin lispro (human) 0-6 Units Subcutaneous TID AC melatonin 3 mg Oral Nightly metoprolol 25 mg Oral Daily multivitamin with minerals 1 tablet Oral Daily pantoprazole 40 mg Oral BID sacubitril-valsartan 1 tablet Oral BID sodium chloride 10 mL Intravenous Q8H Continuous Infusions dextrose PRN Medications acetaminophen OR acetaminophen, atropine sulfate, dextrose, dextrose, dextrose, glucago n, glucagon, HYDROcodone-acetaminophen, nitroGLYCERIN, ondansetron OR ondansetron, perfl utren lipid microspheres, polyethylene glycol, regadenoson, sodium chloride (bolus), sodium chloride 0.9 %, traMADol, zolpidem No family history on file. History Smoking Status Never Smoker Smokeless Tobacco Never Used PHYSICAL EXAM Vital Signs: BP 115/81 | Pulse 88 | Temp 97.9 F (36.6 C) (Oral) | Resp 18 | Ht 1.753 m (5' 9") | Wt 94.5 kg (208 lb 5.4 oz) | SpO2 96% | BMI 30.77 kg/m Temp: [97.6 F (36.4 C)-98.4 F (36.9 C)] 97.9 F (36.6 C) (05/04 254) BP: (92-156)/(50-87) 115/81 (05/04 528) Heart Rate: [66-88] 88 (05/04 254) Resp: [8-18] 18 (05/04 254) SpO2: [86 %-99 %] 96 % (05/04 254) Weight: [94.5 kg (208 lb 5.4 oz)] 94.5 kg (208 lb 5.4 oz) (05/04 528) Physical Exam Constitutional: He is oriented to person, place, and time. Vital signs are normal. He appea rs well-developed and well-nourished. HENT: Head: Normocephalic and atraumatic. Eyes: Conjunctivae and lids are normal. Neck: Trachea normal and normal range of motion. Neck supple. No JVD present. Cardiovascular: Normal rate and regular rhythm. Pulmonary/Chest: Effort normal and breath sounds normal. Abdomina/Gl: Soft. Musculoskeletal: He exhibits no edema. Neurological: He is alert and oriented to person, place, and time. No cranial nerve deficit . Skin: Skin is warm. No cyanosis. DATA Cath:05/03/18:Recurrent disease in LM stent with involvement of ostium of circumflex Echo:05/01/18:EF 20% PROBLEM LIST Principal Problem: Dyspnea Active Problems: COPD (chronic obstructive pulmonary disease) (HCC) Benign essential hypertension Hyperlipidemia CAD (coronary artery disease) Acute on chronic systolic congestive heart failure (HCC) Acute renal failure superimposed on stage 3 chronic kidney disease (HCC) ASSESSMENT & PLAN 62 Y/O WM with recent LM stenting at [facility] complicated by cardiogenic shock requiring ECMO. The patient has recurrent disease in the LM stent involving the ostium of the circumflex. ST S risk score will be calculated. Recommend renal consultation. Further recommendations to domo cruz. Code Status: Full Code Primary Care Physician: Chaot Matson Thank you for allowing me to participate in the care of this patient. ALO GARCIA MD 05/04/2018 aGeetha giraldo MD - 05/01/2018 11:24 AM PDTFormatting of this note might be different from the o riginal. Consults by Deisy Hansen MD at 05/01/18 1124 Author: Deisy Hansen MD Service: (none) Author Type: Physician Filed: 05/03/18 125 Date of Service: 05/01/18 1124 Status: Signed Acid Cutter: Deisy Hansen MD (Physician) Related Notes: Original Note by Deisy Hansen MD (Physician) filed at 05/01/18 11 31 DATE OF ADMISSION: 05/01/2018 REASON FOR ADMISSION: Dyspnea. HISTORY OF PRESENT ILLNESS: This is a 62-year-old white male with a considerable cardiac h istory who came into the emergency room in [place] stating he was short of breath in the m iddle of the night. This is not an unusual situation for him. He takes sublingual nitrogly cerin for it and states over the course of an hour or 2 it generally resolves. He took 3 mckeon blingual nitroglycerin over the course of 2 hours and it did not get enough better for him s o he came into the emergency room. He was noted there to have wet lungs and a mild troponin elevation of 0.19, so he was transferred for further evaluation. He has a significant card iac history in that in 03/2017 he had a myocardiac infarction. He apparently had a stent in to the left circumflex which dissected back into the left anterior descending. This was marco reyes in [place]. He was then transferred to [facility] where he was placed on EMCO for about a w [place]. He had stenting of his left main bifurcationally into the left anterior descending and left circumflex. Though the old records indicated to me he had had a prior circumflex sten t, the patient is fairly adamant that that is not the case and that it all started with that one episode. He initially wore a defibrillator as he had several episodes of VFib while he had significant compromise in his blood supply but this was discontinued last fall, though this spring he had a permanent defibrillator placed in October. It apparently has not fire d. It was last interrogated on the 03/18/2018. He had his last echocardiogram the 04/02/20 18. His ejection fraction was stable at 30-35 percent. He has mild mitral regurgitation an d normal right heart pressures. The patient states he has had a cholecystectomy but other t petty that prior to the myocardiac infarction he was healthy. MEDICATIONS AT HOME: Aspirin 81 mg a day. Lipitor 80 mg a day. Plavix 75 mg by mouth daily. Lasix 20 mg by mouth daily. Gabapentin 300 mg by mouth three times daily for neuropathy that he has as a residual from the ECMO. [place] 5/325 every 6 hours as needed. Zestril 10 mg by mouth daily. Glucophage 500 mg by mouth twice daily, though he states he is not a diabetic. Sublingual nitroglycerin as needed. Protonix 40 mg by mouth twice daily. Zantac 300 mg by mouth daily. Entresto 49/51 by mouth twice daily. Ultram 50 mg every 6 hours as needed. ALLERGIES: NONE. SOCIAL HISTORY: He is former smoker, quitting with his myocardiac infarction a year ago. States he smoked for over 30 years at 2 packs a day. Does not drink alcohol; he quit 15 yea rs ago or so. He states it was never a problem. Has considerable caffeine intake in the fo rm of coffee but he also drinks 7up to excess. He is not retired but not working. 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 He is with healthy grown ross juann. FAMILY HISTORY: His father of an NC in his 60s and paternal siblings around the same age of coronary disease. PHYSICAL EXAMINATION: GENERAL: This is a well-developed, well-nourished 62-year-old white who is alert, oriented times 4, in no apparent distress whatsoever. States he feels normal. VITAL SIGNS: Blood pressure is 113/69, pulse is in the 70s and regular, respirations are 2 0 and unlabored, he is afebrile. NECK: Shows no JVD or bruits. LUNGS: Show poor air movement but no rales. HEART: Distant without appreciable murmur. ABDOMEN: Soft, obese, nontender, nondistended. EXTREMITIES: No clubbing, cyanosis, or edema. Pulses are intact and symmetrical. : Deferred. NEUROLOGIC: Nonfocal. ECG: Sinus rhythm, V paced. IMPRESSION: Mild troponin elevation of uncertain etiology. What brought him in was shortn ess of breath. In discussing with him, the pattern of shortness of breath sounds like sleep apnea to me. When I mentioned that he said he has had a sleep study and is in the process of being worked up for sleep apnea. This did not come up previously. I am not certain that he is taking sublingual nitroglycerin for cardiac issues. Certainly with his known coronar y anatomy, his cardiomyopathy, anything that makes him hypoxic will cause a small bump in tr oponins. But that said, he had significant coronary revascularization a year ago. It might be reasonable to get a nuclear stress test on him before he is discharged, but he likely ne eds a small increase in his diuretics and to have his sleep apnea workup finished. documented in this encounter ED Notes Jeromy Muniz MD - 05/01/2018 8:12 AM PDTFormatting of this note might be different fro m the original. ED Provider Notes by Jeromy Muniz MD at 05/01/18811 Author: Jeromy Muniz MD Service: Emergency Department Author Type: Physician Filed: 05/02/18 0628 Date of Service: 05/01/18811 Status: Signed Acid Cutter: Jeromy Muniz MD (Physician) [facility] Department of Emergency Medicine Pre-arrival Provider: Another ED Provider Name: [place] [facility] Pertinent History and Concerns: Dx NSTEMI and exacerbation of congestive heart failure, Tro ponkendra 0.195 with CHF exacerbation symptoms. 88% on RA on arrival that improved with 2L nc. EKG with no new changes, paced rhythm. VS otherwise stable, no cardiology support. Relevant Medications: lovenox, lasix (05/01/18 0548 : Gera Roberson DO) 8:17 AM History of Present Illness Patient Identification Ron Mckeon is a 62 y.o. male. Patient information was obtained from patient. History/Exam limitations: none. Patient presented to the Emergency Department by: [place] [facility] Chief Complaint Chief Complaint Patient presents with Shortness of Breath This is a 62 y.o. male with chief complaint of SOB. Onset of symptoms was 2:30 AM, with a c onstant course since that time. The symptoms are currently described to be of moderate sever ity. The patient describes the quality and location of the symptoms as the following: diffic ulty breathing. Pt also complains of neck pain. Patient also has an implanted defibrillator. Pt was seen at [facility] this morning for his shortness of breath and was transferred [facility] for elevated troponin and NSTEMI. Patient has hx of NC in March 2017 and had cardiac sten t placement performed in [place] by Dr. Randy Merchant, Fast Food Fry Cook at that time. 6 months later, patient reports he developed a pneumonia and was transferred from [facility] to [facility], where he was placed on ECMO support. Patient's last ECHO was in October of this year, near the time he had his pacemaker/defibrillator placed. Pt denies chest pain, fever, cough, nausea, vomiting, abdominal pain, headaches, or any other symptoms at this time. Care prior to arrival consisted of Hydrocodone, with no relief. Fast Food Fry Cook: Dr. Randy Merchant at [place] Other significant factors in the PMH are noted and include: COPD, CHF, hyperlipidemia, hype rtension and NC PCP: Chato Matson Past Medical History Diagnosis Date Arthritis Chronic obstructive pulmonary disease (HCC) Congestive heart failure (HCC) Hyperlipidemia Hypertension Old myocardial infarction 2017 Past Surgical History Procedure Laterality Date CARDIAC CATHETERIZATION stent placed CHOLECYSTECTOMY echmo 2017 NASAL SEPTUM SURGERY PACEMAKER INSERTION defibrilater Prior to Admission medications Not on File No Known Allergies Social History Social History Marital status: Spouse name: N/A Number of children: N/A Years of education: N/A Occupational History Not on file. Social History Main Topics Smoking status: Never Smoker Smokeless tobacco: Never Used Alcohol use No Drug use: No Sexual activity: Not on file Other Topics Concern Not on file Social History Narrative No narrative on file No family history on file. Review of Systems Review of Systems Constitutional: Negative for fever. HENT: Negative for congestion. Respiratory: Positive for shortness of breath. Negative for cough. Cardiovascular: Negative for chest pain. Gastrointestinal: Negative for abdominal pain, nausea and vomiting. Genitourinary: Negative. Musculoskeletal: Positive for neck pain. Negative for back pain. Skin: Negative for rash. Neurological: Negative for headaches. All other systems reviewed and are negative. Physical Exam BP 117/63 (BP Location: Left upper arm) | Pulse 89 | Temp 96.8 F (36 C) (Oral) | Res p 18 | Wt 100.2 kg (221 lb) | SpO2 96% Vitals: WNL Pulse Oximetry Interpretation: Normal General: Alert, in no acute distress, non-toxic Head: Normocephalic. Atraumatic. Eyes: Normal inspection, pupils equal and round, non-icteric, EOM full ENT: Ears and nose normal external inspection Pharynx normal Moist mucous membranes, pink appearing Neck: Normal inspection Supple No lymphadenopathy. No JVD CVS: Rate and rhythm normal No Bruits. No murmurs Respiratory: scattered bibasilar rales, normal chest rise and fall, no obvious trauma Abdomen: Soft, non-distended, Bowel sounds unremarkable. CVA's non-tender. No guarding or r ebound. No masses. No hernias. Rectal deferred Back: No point tenderness. Moves without difficulty : Deferred Extremities: Moves all extremities without pain or restriction. No obvious deformity. Well perfused. No calf tenderness No leg swelling Skin: Color normal. Warm and dry. No rash noted Neuro: No gross motor/sensory deficits noted. No facial asymmetry Medical Decision Making and Emergency Department Course ED Department Course 8:17 AM Pt presents to the ED complaining of SOB. On exam, pt has scattered bibasilar rale s. I feel that the list of possible emergent diagnoses that the patient requires an evaluati on for includes (but is not limited to): NSTEMI, CHF, COPD exacerbation, vs other. I believ e that further laboratory testing and further diagnostic testing is necessary to ensure that there is no acute emergent cause of the symptoms. 8:[address] [facility] records reviewed from this morning, see below. Patient's records sta te he is on methylprednisolone but to his knowledge, patient is unaware if he is taking it. 9:11 AM. Consult with lab, who reports critical troponin of 0.613. Cardiac panel also shows elevated creatinine 1.8, hypocalcemia 8.2 and low EGFR 38. 9:11 AM. Preliminary read of CXR shows no cardiomegaly, dual chamber AICD, mild interstitia l fluid, mildly pulmonary vascular fluid and no effusion. After review of lab and XR, and re -evaluation of the patient, I believe patient is appropriate for admission. Will discuss carmelita n with hospitalist electric motors salesperson and continue care in the ED until care is assumed by hospitalist team. 9:[address] Sherman, Hospitalist, who accepts the patient for admission. Dr. Sherman requests I find out the brand of the patient's pacemaker. 9:50 AM. Patient recheck. Patient's pacemaker is [employer]. 9:[address] Hansen, Fast Food Fry Cook, who will evaluate the patient in the ED. I have discussed the BP measurements recorded during this stay with the patient and they wi ll follow up with their primary care physician if necessary. Medications sodium chloride 0.9 % flush 10 mL (not administered) clopidogrel (PLAVIX) tablet 75 mg (not administered) nitroGLYCERIN (NITROSTAT) SL tablet 0.4 mg (not administered) pantoprazole (PROTONIX) EC tablet 40 mg (not administered) HYDROcodone-acetaminophen (NORCO) 5-325 MG per tablet 1 tablet (not administered) sacubitril-valsartan (ENTRESTO) 49-51 MG per tablet 1 tablet (not administered) multivitamin with minerals tablet 1 tablet (not administered) aspirin EC tablet 81 mg (not administered) atorvastatin (LIPITOR) tablet 80 mg (not administered) gabapentin (NEURONTIN) capsule 300 mg (not administered) traMADol (ULTRAM) tablet 50 mg (not administered) melatonin tablet 3 mg (not administered) famotidine (PEPCID) tablet 20 mg (not administered) metoprolol (TOPROL-XL) 24 hr tablet 25 mg (not administered) acetaminophen (TYLENOL) tablet 650 mg (not administered) Or acetaminophen (TYLENOL) suppository 650 mg (not administered) ondansetron (ZOFRAN-ODT) disintegrating tablet 4 mg (not administered) Or ondansetron (ZOFRAN) injection 4 mg (not administered) polyethylene glycol (GLYCOLAX) packet 17 g (not administered) furosemide (LASIX) tablet 20 mg (not administered) furosemide (LASIX) injection 20 mg (20 mg Intravenous Given 05/01/18 0855) HYDROcodone-acetaminophen (NORCO) 5-325 MG per tablet 1 tablet (1 tablet Oral Given 05/01/18 0856) Vitals: 05/01/18 0942 05/01/18 1025 05/01/18 1034 05/01/18 1156 BP: 114/64 102/62 113/69 114/75 BP Location: Right upper arm Right upper arm Right upper arm Pulse: 77 77 87 Resp: 18 16 16 Temp: 97.8 F (36.6 C) TempSrc: SpO2: 95% 97% 95% Weight: 97.2 kg (214 lb 4.6 oz) Height: 1.753 m (5' 9") Records Reviewed Old medical records. Nursing notes. No previous [facility] ED visits available in [facility] for review. [facility] ([place], [place]) records from earlier this morning state: CXR shows e jolanta interstitial edema. EKG shows paced rhythm without ischemic changes. Troponin was .0195 . [facility] Records: patient had anterior STEMI in March 2018 with cardiogenic shock and [address] acement with ECMO support. Patient had another stent placed in October 2017 during admissio n. Patient had transthoracic 10/11/17 that showed EF of 30-35% with severely abnormal LV funct ion. Laboratory Evaluation Results Procedure Component Value Ref Range Date/Time Cardiac Panel [[id number]] (Abnormal) Collected: 05/01/18 0815 Order Status: Completed Updated: 05/01/18 09 WBC 7.26 3.80 - 11.00 K/uL RBC 4.43 4.20 - 5.70 M/uL HGB 13.8 13.2 - 17.0 g/dL HCT 40.2 39.0 - 50.0 % MCV 90.8 80.0 - 100.0 fl MCH 31.2 27.0 - 34.0 pg MCHC 34.4 32.0 - 35.5 g/dL RDW SD 45.5 37 - 53 fl PLT 156 150 - 400 K/uL MPV 8.9 fl DIFF TYPE AUTOMATED NEUTROPHILS 73.43 % LYMPHOCYTES 17.50 % MONOCYTES 7.76 % EOSINOPHILS 0.85 % BASOPHILS 0.46 % NEUTROPHILS ABS 5.33 1.90 - 7.40 K/uL LYMPHOCYTES ABS 1.27 1.00 - 3.90 K/uL MONOCYTES ABS 0.56 0.00 - 0.80 K/uL EOSINOPHILS ABS 0.06 0.00 - 0.50 K/uL BASOPHILS ABS 0.03 0.00 - 0.10 K/uL SODIUM 140 135 - 145 mmol/L POTASSIUM 4.5 3.5 - 4.9 mmol/L CHLORIDE 107 99 - 109 mmol/L CO2 24 23 - 32 mmol/L ANION GAP AGAP 13 5 - 20 mmol/L GLUCOSE 121 (H) 65 - 99 mg/dL BUN 27 (H) 8 - 25 mg/dL CREATININE 1.8 (H) 0.70 - 1.30 mg/dL BUN/CREAT 15 CALCIUM 8.2 (L) 8.5 - 10.5 mg/dL TOTAL PROTEIN 7.2 6.3 - 8.2 g/dL Albumin 3.4 3.3 - 4.8 g/dL GLOBULIN 3.9 1.3 - 4.9 g/dL A/G 0.9 (L) 1.0 - 2.4 TBIL 0.4 0.1 - 1.5 mg/dL ALK PHOS 103 35 - 115 U/L AST 13 10 - 45 U/L ALT 20 10 - 65 U/L EGFR 38 (L) >60 mL/min/1.73m2 CPK 67 55 - 400 U/L INR 1.0 APTT 32 23 - 32 seconds MMB 2.6 0.5 - 3.6 ng/mL CK-MB Index 3.9 Troponin I, Lab [[id number]] (Abnormal) Collected: 05/01/18814 Order Status: Completed Specimen: Blood Updated: 08/25/18 0911 TROPONIN I 0.613 (HH) 0.00 - 0.10 ng/mL I personally reviewed the lab results and they have been posted to the chart. Pertinent po sitive and negative findings have been addressed appropriately. Radiology and EKG Evaluation Imaging Results XR chest PA and lateral (Final result) Result time 05/01/18 09:20:47 Final result by Shlomo Leavitt MD (05/01/18 09:20:47) Impression: Left midlung platelike atelectasis. Lungs are otherwise clear. Narrative: RON MCKEON 1955 62 years Male XR CHEST 2 VIEW FRONTAL AND LATERAL 05/01/2018 9:07 AM INDICATION: Shortness of breath COMPARISON: None. TECHNIQUE: Two view chest, PA and lateral views FINDINGS: Left pacemaker/ICD with intact leads. Left midlung mild platelike atelectasis. The lungs are otherwise clear. No pneumothorax, no pleural effusion. Heart size and mediastinal contours are normal. No acute osseous abnormality. EKG 0800 Atrial sensed, ventricular paced rhythm. Rate of 77 bpm. No ectopy or blocks. Intervals and segments are normal. Non specifc ST-T wave changes. Reviewed and interpreted by me independently and contemporaneously. Jeromy Muniz ED Diagnoses Final diagnoses Acute pulmonary edema (HCC) Chest pain, unspecified type NSTEMI (non-ST elevated myocardial infarction) (HCC) Disposition: ED Disposition ED Disposition Condition Comment Admit/Observation Bed request special needs: None Diagnosis?: Pulmonaray Edema/ Chest Pain/ NSTEMI Jeromy Muniz MD Procedures Additional Documentation Procedures Attending Provider Note: Jeromy Candelario MD personally performed the services described in this documentation, as scribed by Zafar Marie in my presence, and it is both accurate and complete. Chart Reviewed and Completed: 05/01/2018 2:27 PM Scribe: Samy Venegas, scribing for and in the presence of Benja Muniz MD. Signed by: Samy Blackman 05/01/2018 2:27 PM Jeromy Muniz MD 05/02/18627 onversion Transacti on, Provider Unknown - 05/01/2018 8:11 AM PDTFormatting of this note might be different fro m the original. ED Notes by Mirna Patel RN at 05/01/18810 Author: Mirna Patel RN Service: (none) Author Type: Registered Nurse Filed: 05/01/18811 Date of Service: 05/01/18810 Status: Signed Acid Cutter: Mirna Patel RN (Registered Nurse) Pt states he woke last night from a sleep with shortness of breath, chest pain and neck cristino n. Gave himself a breathing treatment with no improvement Mirna Patel RN 05/01/18811 onver neema Transaction, Provider Unknown - 05/01/2018 7:58 AM PDT ED Notes by Mirna Patel RN at 05/01/18757 Author: Mirna Patel RN Service: (none) Author Type: Registered Nurse Filed: 05/01/18758 Date of Service: 05/01/18757 Status: Signed Acid Cutter: Mirna Patel RN (Registered Nurse) Pt was at [facility] this morning for SOB with hx of COPD and denied chest pain. Pt has IC PD. Troponin with [facility] troponin was 1.1. Given ASA and lasix at [facility] and hep jennie. Mirna Patel RN 05/01/18758 onver neema Transaction, Provider Unknown - 05/01/2018 7:57 AM PDT ED Notes by Mirna Patel RN at 05/01/18756 Author: Mirna Patel RN Service: (none) Author Type: Registered Nurse Filed: 05/01/18756 Date of Service: 05/01/18756 Status: Signed Acid Cutter: Mirna Patel RN (Registered Nurse) Bed: 19 Expected date: Expected time: Means of arrival: Comments: Jennifer Bradley Yuki Patel RN 05/01/18 0757 onver neema Transaction, Provider Unknown - 05/01/2018 6:38 AM PDT ED Notes by Lesley Santana RN at 05/01/18637 Author: Lesley Santana RN Service: (none) Author Type: Registered Nurse Filed: 05/01/1843 Date of Service: 05/01/18637 Status: Signed Acid Cutter: Lesley Santana RN (Registered Nurse) Report from ALFONSO Segura at [facility]: pt presented to their ER by EMS with c/o SOB and n cammy pain starting around midnight. Pt had taken 2 SL nitroglycerin prior to departure and wa s given 1 neb by EMS. CXR and BNP of 397 concerning for CHF exacerbation. Pt given 20mg lasi x and had urine output of 1050cc. Troponin elevated at 0.195. Transfer to our facility for c ardiac observation. 22ga to R hand. ETA to our facilty 0740 by ground EMS. PMH includes defi brillator placement and CHF. Lesley Santana RN 05/01/18642 docume nted in this encounter Miscellaneous Notes Plan of Care - Conversion Transaction, Provider Unknown - 05/13/2018 6:16 AM PDT Plan of Care by Monique Monreal RN at 05/13/18615 Author: Monique Monreal RN Service: (none) Author Type: Registered Nurse Filed: 05/13/18615 Date of Service: 05/13/18615 Status: Signed Acid Cutter: Monique Monreal RN (Registered Nurse) Problem: Pain Goal: Patient's pain/discomfort is manageable Assess and monitor patient's pain using appropriate pain scale. Collaborate with interdisci plinary team and initiate plan and interventions as ordered. Re-assess patient's pain level approximately 1-2 hours after pain management intervention. Premedicate as needed. Outcome: Progressing Pt's pain well controlled with oral pain medication. lan o f Care - Conversion Transaction, Provider Unknown - 05/12/2018 3:30 PM PDTFormatting of thi s note might be different from the original. Plan of Care by Heidi Berkowitz RN at 05/12/18 153 Author: Heidi Berkowitz RN Service: (none) Author Type: Registered Nurse Filed: 05/12/181529 Date of Service: 05/12/181529 Status: Signed Acid Cutter: Heidi Berkowitz RN (Registered Nurse) Problem: Daily Care Goal: Daily care needs are met Assess and monitor ability to perform self care and identify potential discharge needs. Outcome: Progressing Daily cares met at this time, hourly rounding uneventful, assistance offered PRN, WCM. lan o f Care - Janett, Lynn Bailey MD - 05/11/2018 10:17 PM PDTFormatting of this note might be dif ferent from the original. Plan of Care by Lynn Rowland MD at 05/11/182216 Author: Lynn Rowland MD Service: (none) Author Type: Physician Filed: 05/11/18 7430 Date of Service: 05/11/182216 Status: Addendum Acid Cutter: Lynn Rowland MD (Physician) Related Notes: Original Note by Lynn Rowland MD (Physician) filed at 05/11/18 3626 62 y.o. male with significant past medical history of CAD([id number]-Cardiogenic shock- ECMO-[facility] recent LM stenting at [facility] complicated by cardiogenic shock requiring ECMO. The patient has recurrent disease in the LM stent involving the ostium of the circumflex. Non-viable anterior wall.Recommend High risk CABG with VAD back-up at [facility] plan transfer when bed avilable RAT called with sOB HR 100s BP 150s sytolic on exam heart s1 s2, lung BS crepts++ lasix 60 IV O2 nasal mask ABG stta Xray chest No CP recheck will give another lasix 40 mg IV xopenex tretament q 4 hour Today for now then as need Xray chest acute pul edema ABG ph 7.38 Co2 37 o2 68 O2 sat 93% Hco3 22 on Fio2 70% lan of Care - Con version Transaction, Provider Unknown - 05/11/2018 8:14 AM PDT Plan of Care by Lidia Hyde RN at 05/11/18813 Author: Lidia Hyde RN Service: Hospitalist Author Type: Registered Nurse Filed: 05/11/18813 Date of Service: 05/11/18813 Status: Signed Acid Cutter: Lidia Hyde RN (Registered Nurse) Problem: Pain Goal: Patient's pain/discomfort is manageable Assess and monitor patient's pain using appropriate pain scale. Collaborate with interdisci plinary team and initiate plan and interventions as ordered. Re-assess patient's pain level approximately 1-2 hours after pain management intervention. Premedicate as needed. Outcome: Progressing Will medicated with prn medication. Patient will have decrease in pain level. lan o f Care - Conversion Transaction, Provider Unknown - 05/11/2018 5:36 AM PDTFormatting of thi s note might be different from the original. Plan of Care by Kathryn Adler RN at 05/11/18535 Author: Kathryn Adler RN Service: (none) Author Type: Registered Nurse Filed: 05/11/18535 Date of Service: 05/11/18535 Status: Signed Acid Cutter: Kathryn dAler RN (Registered Nurse) Problem: Safety Goal: Patient will be injury free during hospitalization Assess and monitor vitals signs, neurological status including level of consciousness and o rientation. Assess patient's risk for falls and implement fall prevention plan of care and i nterventions per hospital policy. Ensure arm band on, uncluttered walking paths in room, adequate room lighting, call light a nd overbed table within reach, bed in low position, wheels locked, side rails up per policy, and non-skid footwear provided. Outcome: Progressing Arm band on, non-slip socks on, call light within reach, bed is low and locked, WCM. lan o f Care - Conversion Transaction, Provider Unknown - 05/10/2018 11:51 AM PDTFormatting of thi s note might be different from the original. Plan of Care by Lamar Schilling RN at 05/10/181150 Author: Lamar Schilling RN Service: (none) Author Type: Registered Nurse Filed: 05/10/181150 Date of Service: 05/10/181150 Status: Signed Acid Cutter: Lamar Schilling RN (Registered Nurse) Problem: Safety Goal: Patient will be injury free during hospitalization Assess and monitor vitals signs, neurological status including level of consciousness and o rientation. Assess patient's risk for falls and implement fall prevention plan of care and i nterventions per hospital policy. Ensure arm band on, uncluttered walking paths in room, adequate room lighting, call light a nd overbed table within reach, bed in low position, wheels locked, side rails up per policy, and non-skid footwear provided. Outcome: Progressing Pt remains injury free. Pt calling appropriate when assistance needed. Call light at bedsid e. Pt ambulating in room and hallway. Arm band on pt. Non-skid footwear on when pt is out of bed. Pt is A&Ox4. VSS. lan o f Care - Conversion Transaction, Provider Unknown - 05/09/2018 10:39 PM PDTFormatting of thi s note might be different from the original. Plan of Care by Rubi Julio RN at 05/09/182238 Author: Rubi Julio RN Service: (none) Author Type: Registered Nurse Filed: 05/09/182238 Date of Service: 05/09/182238 Status: Signed Acid Cutter: Rubi Julio RN (Registered Nurse) Problem: Pain Goal: Patient's pain/discomfort is manageable Assess and monitor patient's pain using appropriate pain scale. Collaborate with interdisci plinary team and initiate plan and interventions as ordered. Re-assess patient's pain level approximately 1-2 hours after pain management intervention. Premedicate as needed. Outcome: Progressing Pt has no c/o pain at this time. lan o f Care - Conversion Transaction, Provider Unknown - 05/09/2018 4:40 PM PDTFormatting of thi s note might be different from the original. Plan of Care by Marianne Judge RN at 05/09/18 1640 Author: Marianne Judge RN Service: (none) Author Type: Registered Nurse Filed: 05/09/18 1641 Date of Service: 05/09/18 1640 Status: Signed Acid Cutter: Marianne Judge RN (Registered Nurse) Safety Patient will be injury free during hospitalization Progressing Pt ambulates independently with steady gait. Educated pt on fall precautions and risk of fa lls. Pt aware of when to call for assistance. Pts room clear of clutter, unobstructed path t o bathroom. lan o f Care - Conversion Transaction, Provider Unknown - 05/09/2018 4:42 AM PDTFormatting of thi s note might be different from the original. Plan of Care by Marianne Lujan RN at 05/09/18441 Author: Marianne Lujan RN Service: (none) Author Type: Registered Nurse Filed: 05/09/18441 Date of Service: 05/09/18441 Status: Signed Acid Cutter: Marianne Lujan RN (Registered Nurse) Pain Patient's pain/discomfort is manageable Progressing Pt states pain is manageable with current pain medication. lan o f Care - Conversion Transaction, Provider Unknown - 05/08/2018 11:21 AM PDTFormatting of thi s note might be different from the original. Plan of Care by Nisa Kulkarni RN at 05/08/18 112 Author: Nisa Kulkarni RN Service: (none) Author Type: Registered Nurse Filed: 05/08/18 112 Date of Service: 05/08/18 112 Status: Signed Acid Cutter: Nisa Kulkarni RN (Registered Nurse) Problem: Safety Goal: Patient will be injury free during hospitalization Assess and monitor vitals signs, neurological status including level of consciousness and o rientation. Assess patient's risk for falls and implement fall prevention plan of care and i nterventions per hospital policy. Ensure arm band on, uncluttered walking paths in room, adequate room lighting, call light a nd overbed table within reach, bed in low position, wheels locked, side rails up per policy, and non-skid footwear provided. Outcome: Progressing Call light within reach. Bed low. Wheels locked. Pathway clear and free of clutter. lan o f Care - Conversion Transaction, Provider Unknown - 05/08/2018 4:10 AM PDTFormatting of thi s note might be different from the original. Plan of Care by Brianna Kaufman RN at 05/08/18409 Author: Brianna Kuafman RN Service: (none) Author Type: Registered Nurse Filed: 05/08/18409 Date of Service: 05/08/18409 Status: Signed Acid Cutter: Brianna Kaufman RN (Registered Nurse) Pain Goal: Patient s pain/discomfort is manageable Assess and monitor patient s pain using appropriate pain scale. Collaborate with interdis ciplinary team and initiate plan and interventions as ordered. Re-assess patient s pain le hasmukh approximately 1-2 hours after pain management intervention. Premedicate as needed. Outcome: Progressing Patient states pain is under control on current regimen. Will continue to monitor and provi de medication as well as comfort measures as needed. Safety Goal: Patient will be injury free during hospitalization Assess and monitor vitals signs, neurological status including level of consciousness and o rientation. Assess patient s risk for falls and implement fall prevention plan of care and interventions per hospital policy. Ensure arm band on, uncluttered walking paths in room, adequate room lighting, call light a nd overbed table within reach, bed in low position, wheels locked, side rails up per policy, and non-skid footwear provided. Outcome: Progressing Patient will remain free from falls during hospital visit. Bed in lowest position. Room kathryn e from clutter. Call light within reach. Fall Prevention Goal: No Falls during Hospital Stay Outcome: Progressing Maintain bed in low, locked position at all times. [place] patient and family to hospital surroundings. Provide non-skid slippers. Call light within reach. Hourly rounding performed per standard. Discharge Goal: Patient's discharge needs are met. Outcome: Progressing Working with ancillary staff and Pellet Machine Operator to identify discharge barriers and meet patie nt's discharge needs lan o f Care - Conversion Transaction, Provider Unknown - 05/07/2018 7:40 AM PDTFormatting of ruddy s note might be different from the original. Plan of Care by Nisa Kulkarni RN at 05/07/18739 Author: Nisa Kulkarni RN Service: (none) Author Type: Registered Nurse Filed: 05/07/18739 Date of Service: 05/07/18739 Status: Signed Acid Cutter: Nisa Kulkarni RN (Registered Nurse) Problem: Daily Care Goal: Daily care needs are met Assess and monitor ability to perform self care and identify potential discharge needs. Outcome: Progressing Call light within reach. Bed low. Wheels locked. Pathway clear and free of clutter. lan o f Care - Conversion Transaction, Provider Unknown - 05/07/2018 2:35 AM PDTFormatting of ruddy s note might be different from the original. Plan of Care by Kathryn Adler RN at 05/07/18234 Author: Kathryn Adler RN Service: (none) Author Type: Registered Nurse Filed: 05/07/18234 Date of Service: 05/07/18234 Status: Signed Acid Cutter: Kathryn Adler RN (Registered Nurse) Problem: Safety Goal: Patient will be injury free during hospitalization Assess and monitor vitals signs, neurological status including level of consciousness and o rientation. Assess patient's risk for falls and implement fall prevention plan of care and i nterventions per hospital policy. Ensure arm band on, uncluttered walking paths in room, adequate room lighting, call light a nd overbed table within reach, bed in low position, wheels locked, side rails up per policy, and non-skid footwear provided. Outcome: Progressing Pt is independent, steady on feet, non-slip socks on, room is free of clutter, bed is low a nd locked. WCM. lan o f Care - Conversion Transaction, Provider Unknown - 05/06/2018 10:17 AM PDTFormatting of thi s note might be different from the original. Plan of Care by Nisa Kulkarni RN at 05/06/181016 Author: Nisa Kulkarni RN Service: (none) Author Type: Registered Nurse Filed: 05/06/181016 Date of Service: 05/06/181016 Status: Signed Acid Cutter: Nisa Kulkarni RN (Registered Nurse) Problem: Safety Goal: Patient will be injury free during hospitalization Assess and monitor vitals signs, neurological status including level of consciousness and o rientation. Assess patient's risk for falls and implement fall prevention plan of care and i nterventions per hospital policy. Ensure arm band on, uncluttered walking paths in room, adequate room lighting, call light a nd overbed table within reach, bed in low position, wheels locked, side rails up per policy, and non-skid footwear provided. Outcome: Progressing Call light within reach. Bed low. Wheels locked. Pathway clear and free of clutter. lan o f Care - Conversion Transaction, Provider Unknown - 05/05/2018 11:17 PM PDTFormatting of thi s note might be different from the original. Plan of Care by Kathryn Adler RN at 05/05/182316 Author: Kathryn Adler RN Service: (none) Author Type: Registered Nurse Filed: 05/05/182316 Date of Service: 05/05/182316 Status: Signed Acid Cutter: Kathryn Adler RN (Registered Nurse) Problem: Safety Goal: Patient will be injury free during hospitalization Assess and monitor vitals signs, neurological status including level of consciousness and o rientation. Assess patient's risk for falls and implement fall prevention plan of care and i nterventions per hospital policy. Ensure arm band on, uncluttered walking paths in room, adequate room lighting, call light a nd overbed table within reach, bed in low position, wheels locked, side rails up per policy, and non-skid footwear provided. Outcome: Progressing Arm band on, non-slip socks on, bed is low and locked, table within reach, room free of clu tter. WCM. lan o f Care - Conversion Transaction, Provider Unknown - 05/05/2018 9:46 AM PDTFormatting of thi s note might be different from the original. Plan of Care by Nisa Kulkarni RN at 05/05/18945 Author: Nisa Kulkarni RN Service: (none) Author Type: Registered Nurse Filed: 05/05/18945 Date of Service: 05/05/18945 Status: Signed Acid Cutter: Nisa Kulkarni RN (Registered Nurse) Problem: Safety Goal: Patient will be injury free during hospitalization Assess and monitor vitals signs, neurological status including level of consciousness and o rientation. Assess patient's risk for falls and implement fall prevention plan of care and i nterventions per hospital policy. Ensure arm band on, uncluttered walking paths in room, adequate room lighting, call light a nd overbed table within reach, bed in low position, wheels locked, side rails up per policy, and non-skid footwear provided. Outcome: Progressing Call light within reach. Bed low. Wheels locked. Pathway clear and free of clutter. lan o f Care - Conversion Transaction, Provider Unknown - 05/05/2018 12:48 AM PDTFormatting of thi s note might be different from the original. Plan of Care by Kathryn Adler RN at 05/05/1847 Author: Kathryn Adler RN Service: (none) Author Type: Registered Nurse Filed: 05/05/1847 Date of Service: 05/05/1847 Status: Signed Acid Cutter: Kathryn Adler RN (Registered Nurse) Problem: Pain Goal: Patient's pain/discomfort is manageable Assess and monitor patient's pain using appropriate pain scale. Collaborate with interdisci plinary team and initiate plan and interventions as ordered. Re-assess patient's pain level approximately 1-2 hours after pain management intervention. Premedicate as needed. Outcome: Progressing Pt's pain has been managed and tolerable for pt with PRN medication. Pt is able to notify s taff if pain increasing. WCM. lan o f Care - Conversion Transaction, Provider Unknown - 05/04/2018 8:27 AM PDTFormatting of ruddy s note might be different from the original. Plan of Care by Alok Mortensen RN at 05/04/18826 Author: Alok Mortensen RN Service: (none) Author Type: Registered Nurse Filed: 05/04/18826 Date of Service: 05/04/18826 Status: Signed Acid Cutter: Alok Mortensen RN (Registered Nurse) Problem: Safety Goal: Patient will be injury free during hospitalization Assess and monitor vitals signs, neurological status including level of consciousness and o rientation. Assess patient's risk for falls and implement fall prevention plan of care and i nterventions per hospital policy. Ensure arm band on, uncluttered walking paths in room, adequate room lighting, call light a nd overbed table within reach, bed in low position, wheels locked, side rails up per policy, and non-skid footwear provided. Outcome: Progressing Pt calls appropriately for needs. Bed in lowest position, bed wheels locked, side rails up x2, call light in reach. lan o f Care - Conversion Transaction, Provider Unknown - 05/04/2018 1:25 AM PDTFormatting of thi s note might be different from the original. Plan of Care by Katherin Christopher RN at 05/04/18124 Author: Katherin Christopher RN Service: (none) Author Type: Registered Nurse Filed: 05/04/18125 Date of Service: 05/04/18124 Status: Signed Acid Cutter: Katherin Christopher RN (Registered Nurse) Daily Care Daily care needs are met Progressing All needs met at this time. Pt independent with ADLs. Calls appropriately for assistance. Safety Patient will be injury free during hospitalization Progressing Bed in low and locked position, side rails up x2, call light within reach. lan o f Care - Alo Garcia Jr., MD - 05/03/2018 7:49 PM PDTFormatting of this note might be d ifferent from the original. ACP (Advance Care Planning) by Alo Garcia MD at 05/03/181948 Author: Alo Garcia MD Service: Cardiac, Thoracic, and Vascular Surgery Author Type: Physician Filed: 05/03/18 1950 Date of Service: 05/03/181948 Status: Signed Acid Cutter: Alo Garcia MD (Physician) D/W Dr. Hansen Full consult to follow p Note - Deisy Hansen MD - 05/03/2018 12:50 PM PDT Brief Op Note by Deisy Hansen MD at 05/03/18 1250 Author: Deisy Hansen MD Service: (none) Author Type: Physician Filed: 05/03/18 1251 Date of Service: 05/03/181249 Status: Signed Acid Cutter: Deisy Hansen MD (Physician) Cath done and dictated. Eval for CABG. Start heparin Gtt tomorrow. lan of Ca re - Conversion Transaction, Provider Unknown - 05/03/2018 9:56 AM PDTFormatting of this no te might be different from the original. Plan of Care by Alok Mortensen RN at 05/03/18955 Author: Alok Mortensen RN Service: (none) Author Type: Registered Nurse Filed: 05/03/18955 Date of Service: 05/03/18955 Status: Signed Acid Cutter: Alok Mortensen RN (Registered Nurse) Problem: Safety Goal: Patient will be injury free during hospitalization Assess and monitor vitals signs, neurological status including level of consciousness and o rientation. Assess patient's risk for falls and implement fall prevention plan of care and i nterventions per hospital policy. Ensure arm band on, uncluttered walking paths in room, adequate room lighting, call light a nd overbed table within reach, bed in low position, wheels locked, side rails up per policy, and non-skid footwear provided. Outcome: Progressing Pt calls appropriately for needs. Bed in lowest position, bed wheels locked, side rails up x2, call light in reach. lan o f Care - Conversion Transaction, Provider Unknown - 05/02/2018 7:45 PM PDTFormatting of thi s note might be different from the original. Plan of Care by Deanna Ordonez RN at 05/02/181944 Author: Deanna Ordonez RN Service: (none) Author Type: Registered Nurse Filed: 05/02/182032 Date of Service: 05/02/181944 Status: Signed Acid Cutter: Deanna Ordonez RN (Registered Nurse) Problem: Pain Goal: Patient's pain/discomfort is manageable Assess and monitor patient's pain using appropriate pain scale. Collaborate with interdisci plinary team and initiate plan and interventions as ordered. Re-assess patient's pain level approximately 1-2 hours after pain management intervention. Premedicate as needed. Outcome: Progressing Pt's pain is well managed with current PRN pain med regimen. Will continue to reassess and medicate when appropriate. lan o f Care - Conversion Transaction, Provider Unknown - 05/02/2018 10:15 AM PDTFormatting of thi s note might be different from the original. Plan of Care by Alok Mortensen RN at 05/02/181014 Author: Alok Mortensen RN Service: (none) Author Type: Registered Nurse Filed: 05/02/185 Date of Service: 05/02/181014 Status: Signed Acid Cutter: Alok Mortensen RN (Registered Nurse) Problem: Safety Goal: Patient will be injury free during hospitalization Assess and monitor vitals signs, neurological status including level of consciousness and o rientation. Assess patient's risk for falls and implement fall prevention plan of care and i nterventions per hospital policy. Ensure arm band on, uncluttered walking paths in room, adequate room lighting, call light a nd overbed table within reach, bed in low position, wheels locked, side rails up per policy, and non-skid footwear provided. Outcome: Progressing Pt calls appropriately for needs. Bed in lowest position, bed wheels locked, side rails up x2, call light in reach. lan o f Care - Conversion Transaction, Provider Unknown - 05/01/2018 7:30 PM PDTFormatting of thi s note might be different from the original. Plan of Care by Deanna Ordonez RN at 05/01/181929 Author: Deanna Ordonez RN Service: (none) Author Type: Registered Nurse Filed: 05/01/182022 Date of Service: 05/01/181929 Status: Signed Acid Cutter: Deanna Ordonez RN (Registered Nurse) Problem: Pain Goal: Patient's pain/discomfort is manageable Assess and monitor patient's pain using appropriate pain scale. Collaborate with interdisci plinary team and initiate plan and interventions as ordered. Re-assess patient's pain level approximately 1-2 hours after pain management intervention. Premedicate as needed. Outcome: Progressing Pt reports relief with current pain med regimen. Will continue to reassess pain and medicat e when appropriate. lan o f Care - Conversion Transaction, Provider Unknown - 05/01/2018 11:54 AM PDTFormatting of thi s note might be different from the original. Plan of Care by Alok Mortensen RN at 05/01/181153 Author: Alok Mortensen RN Service: (none) Author Type: Registered Nurse Filed: 05/01/185 Date of Service: 05/01/181153 Status: Signed Acid Cutter: Alok Mortensen RN (Registered Nurse) Problem: Safety Goal: Patient will be injury free during hospitalization Assess and monitor vitals signs, neurological status including level of consciousness and o rientation. Assess patient's risk for falls and implement fall prevention plan of care and i nterventions per hospital policy. Ensure arm band on, uncluttered walking paths in room, adequate room lighting, call light a nd overbed table within reach, bed in low position, wheels locked, side rails up per policy, and non-skid footwear provided. Outcome: Progressing Pt calls appropriately for needs. Bed in lowest position, bed wheels locked, side rails up x2, call light in reach. docume nted in this encounter Plan of Treatment +--------+ + + + + | Date | Type | Specialty | Care Team | Description | +--------+ + + + + | 03/12/ | Office | Nephrology | Litzy, | | | 2019 | Visit | | [address] | | | | | | [address] | | | | | | [address] [facility] [place] | | | | | | [phone] | | | | | | | | +--------+ + + + + | 04/16/ | Office | Cardiology | Alin Anderson | | 2019 | Visit | | [address] | | | | | | [address] | | | | | | [place] [address] | | | | | | [phone] | | | | | | | | +--------+ + + + + | 04/16/ | Procedure | Cardiology | | | | 2019 | visit | | | | +--------+ + + + + | 04/25/ | Office | Cardiology | Rocio Pearl, | | | 2019 | Visit | | MD [address] | | | | | | [place], [place] | | | | | | [address] | | | | | | | | +--------+ + + + + documented as of this encounter Procedures + +--------+ + + + | Procedure Name | Priori | Date/Time | Associated Diagnosis | Comments | | | ty | | | | + +--------+ + + + | POC GLUCOSE | Routin | 05/13/2018 | | Results for this | | | e | 11:18 AM | | procedure are in the | | | | PDT | | results section. | + +--------+ + + + | PTT | Routin | 05/13/2018 | | Results for this | | | e | 9:46 AM | | procedure are in the | | | | PDT | | results section. | + +--------+ + + + | POC GLUCOSE | Routin | 05/13/2018 | | Results for this | | | e | 5:20 AM | | procedure are in the | | | | PDT | | results section. | + +--------+ + + + | EXTERNAL LAB: CBC | Routin | 05/13/2018 | | Results for this | | | e | 3:24 AM | | procedure are in the | | | | PDT | | results section. | + +--------+ + + + | PTT | Routin | 05/13/2018 | | Results for this | | | e | 3:24 AM | | procedure are in the | | | | PDT | | results section. | + +--------+ + + + | MAGNESIUM | Routin | 05/13/2018 | | Results for this | | | e | 3:24 AM | | procedure are in the | | | | PDT | | results section. | + +--------+ + + + | COMPREHENSIVE | Routin | 05/13/2018 | | Results for this | | METABOLIC PANEL | e | 3:24 AM | | procedure are in the | | | | PDT | | results section. | + +--------+ + + + | POC GLUCOSE | Routin | 05/12/2018 | | Results for this | | | e | 9:04 PM | | procedure are in the | | | | PDT | | results section. | + +--------+ + + + | PTT | Routin | 05/12/2018 | | Results for this | | | e | 7:29 PM | | procedure are in the | | | | PDT | | results section. | + +--------+ + + + | POC GLUCOSE | Routin | 05/12/2018 | | Results for this | | | e | 4:27 PM | | procedure are in the | | | | PDT | | results section. | + +--------+ + + + | PTT | Routin | 05/12/2018 | | Results for this | | | e | 1:08 PM | | procedure are in the | | | | PDT | | results section. | + +--------+ + + + | POC GLUCOSE | Routin | 05/12/2018 | | Results for this | | | e | 12:53 PM | | procedure are in the | | | | PDT | | results section. | + +--------+ + + + | POC GLUCOSE | Routin | 05/12/2018 | | Results for this | | | e | 5:26 AM | | procedure are in the | | | | PDT | | results section. | + +--------+ + + + | EXTERNAL LAB: CBC | Routin | 05/12/2018 | | Results for this | | | e | 4:35 AM | | procedure are in the | | | | PDT | | results section. | + +--------+ + + + | PTT | Routin | 05/12/2018 | | Results for this | | | e | 4:35 AM | | procedure are in the | | | | PDT | | results section. | + +--------+ + + + | MAGNESIUM | Routin | 05/12/2018 | | Results for this | | | e | 4:35 AM | | procedure are in the | | | | PDT | | results section. | + +--------+ + + + | COMPREHENSIVE | Routin | 05/12/2018 | | Results for this | | METABOLIC PANEL | e | 4:35 AM | | procedure are in the | | | | PDT | | results section. | + +--------+ + + + | XR CHEST 1 VIEW | Routin | 05/11/2018 | | Results for this | | | e | 10:38 PM | | procedure are in the | | | | PDT | | results section. | + +--------+ + + + | POC GLUCOSE | Routin | 05/11/2018 | | Results for this | | | e | 9:30 PM | | procedure are in the | | | | PDT | | results section. | + +--------+ + + + | POC GLUCOSE | Routin | 05/11/2018 | | Results for this | | | e | 5:07 PM | | procedure are in the | | | | PDT | | results section. | + +--------+ + + + | POC GLUCOSE | Routin | 05/11/2018 | | Results for this | | | e | 11:30 AM | | procedure are in the | | | | PDT | | results section. | + +--------+ + + + | PTT | Routin | 05/11/2018 | | Results for this | | | e | 11:01 AM | | procedure are in the | | | | PDT | | results section. | + +--------+ + + + | EXTERNAL LAB: CBC | Routin | 05/11/2018 | | Results for this | | | e | 5:14 AM | | procedure are in the | | | | PDT | | results section. | + +--------+ + + + | POC GLUCOSE | Routin | 05/11/2018 | | Results for this | | | e | 5:14 AM | | procedure are in the | | | | PDT | | results section. | + +--------+ + + + | PTT | Routin | 05/11/2018 | | Results for this | | | e | 5:14 AM | | procedure are in the | | | | PDT | | results section. | + +--------+ + + + | RENAL FUNCTION PANEL | Routin | 05/11/2018 | | Results for this | | | e | 5:14 AM | | procedure are in the | | | | PDT | | results section. | + +--------+ + + + | POC GLUCOSE | Routin | 05/10/2018 | | Results for this | | | e | 9:28 PM | | procedure are in the | | | | PDT | | results section. | + +--------+ + + + | PTT | Routin | 05/10/2018 | | Results for this | | | e | 8:54 PM | | procedure are in the | | | | PDT | | results section. | + +--------+ + + + | POC GLUCOSE | Routin | 05/10/2018 | | Results for this | | | e | 4:24 PM | | procedure are in the | | | | PDT | | results section. | + +--------+ + + + | PTT | Routin | 05/10/2018 | | Results for this | | | e | 2:10 PM | | procedure are in the | | | | PDT | | results section. | + +--------+ + + + | POC GLUCOSE | Routin | 05/10/2018 | | Results for this | | | e | 12:09 PM | | procedure are in the | | | | PDT | | results section. | + +--------+ + + + | PTT | Routin | 05/10/2018 | | Results for this | | | e | 6:45 AM | | procedure are in the | | | | PDT | | results section. | + +--------+ + + + | RENAL FUNCTION PANEL | Routin | 05/10/2018 | | Results for this | | | e | 6:45 AM | | procedure are in the | | | | PDT | | results section. | + +--------+ + + + | POC GLUCOSE | Routin | 05/10/2018 | | Results for this | | | e | 5:13 AM | | procedure are in the | | | | PDT | | results section. | + +--------+ + + + | PTT | Routin | 05/10/2018 | | Results for this | | | e | 12:28 AM | | procedure are in the | | | | PDT | | results section. | + +--------+ + + + | POC GLUCOSE | Routin | 05/09/2018 | | Results for this | | | e | 9:21 PM | | procedure are in the | | | | PDT | | results section. | + +--------+ + + + | POC GLUCOSE | Routin | 05/09/2018 | | Results for this | | | e | 5:52 PM | | procedure are in the | | | | PDT | | results section. | + +--------+ + + + | PTT | Routin | 05/09/2018 | | Results for this | | | e | 5:52 PM | | procedure are in the | | | | PDT | | results section. | + +--------+ + + + | POC GLUCOSE | Routin | 05/09/2018 | | Results for this | | | e | 4:17 PM | | procedure are in the | | | | PDT | | results section. | + +--------+ + + + | NM MYOCARDIAL | Routin | 05/09/2018 | | Results for this | | PERFUSION SINGLE | e | 1:45 PM | | procedure are in the | | | | PDT | | results section. | + +--------+ + + + | PTT | Routin | 05/09/2018 | | Results for this | | | e | 11:51 AM | | procedure are in the | | | | PDT | | results section. | + +--------+ + + + | POC GLUCOSE | Routin | 05/09/2018 | | Results for this | | | e | 11:43 AM | | procedure are in the | | | | PDT | | results section. | + +--------+ + + + | POC GLUCOSE | Routin | 05/09/2018 | | Results for this | | | e | 5:48 AM | | procedure are in the | | | | PDT | | results section. | + +--------+ + + + | PTT | Routin | 05/09/2018 | | Results for this | | | e | 5:45 AM | | procedure are in the | | | | PDT | | results section. | + +--------+ + + + | RENAL FUNCTION PANEL | Routin | 05/09/2018 | | Results for this | | | e | 5:45 AM | | procedure are in the | | | | PDT | | results section. | + +--------+ + + + | PTT | Routin | 05/08/2018 | | Results for this | | | e | 9:20 PM | | procedure are in the | | | | PDT | | results section. | + +--------+ + + + | POC GLUCOSE | Routin | 05/08/2018 | | Results for this | | | e | 8:58 PM | | procedure are in the | | | | PDT | | results section. | + +--------+ + + + | POTASSIUM | Routin | 05/08/2018 | | Results for this | | | e | 6:57 PM | | procedure are in the | | | | PDT | | results section. | + +--------+ + + + | POC GLUCOSE | Routin | 05/08/2018 | | Results for this | | | e | 5:54 PM | | procedure are in the | | | | PDT | | results section. | + +--------+ + + + | POC GLUCOSE | Routin | 05/08/2018 | | Results for this | | | e | 5:29 PM | | procedure are in the | | | | PDT | | results section. | + +--------+ + + + | POC GLUCOSE | Routin | 05/08/2018 | | Results for this | | | e | 4:36 PM | | procedure are in the | | | | PDT | | results section. | + +--------+ + + + | POC GLUCOSE | Routin | 05/08/2018 | | Results for this | | | e | 11:16 AM | | procedure are in the | | | | PDT | | results section. | + +--------+ + + + | PTT | Routin | 05/08/2018 | | Results for this | | | e | 8:27 AM | | procedure are in the | | | | PDT | | results section. | + +--------+ + + + | POC GLUCOSE | Routin | 05/08/2018 | | Results for this | | | e | 5:25 AM | | procedure are in the | | | | PDT | | results section. | + +--------+ + + + | RENAL FUNCTION PANEL | Routin | 05/08/2018 | | Results for this | | | e | 2:27 AM | | procedure are in the | | | | PDT | | results section. | + +--------+ + + + | PTT | Routin | 05/08/2018 | | Results for this | | | e | 2:24 AM | | procedure are in the | | | | PDT | | results section. | + +--------+ + + + | POC GLUCOSE | Routin | 05/07/2018 | | Results for this | | | e | 8:44 PM | | procedure are in the | | | | PDT | | results section. | + +--------+ + + + | PTT | Routin | 05/07/2018 | | Results for this | | | e | 7:14 PM | | procedure are in the | | | | PDT | | results section. | + +--------+ + + + | POC GLUCOSE | Routin | 05/07/2018 | | Results for this | | | e | 4:12 PM | | procedure are in the | | | | PDT | | results section. | + +--------+ + + + | PTT | Routin | 05/07/2018 | | Results for this | | | e | 12:52 PM | | procedure are in the | | | | PDT | | results section. | + +--------+ + + + | POC GLUCOSE | Routin | 05/07/2018 | | Results for this | | | e | 11:05 AM | | procedure are in the | | | | PDT | | results section. | + +--------+ + + + | PTT | Routin | 05/07/2018 | | Results for this | | | e | 7:08 AM | | procedure are in the | | | | PDT | | results section. | + +--------+ + + + | POC GLUCOSE | Routin | 05/07/2018 | | Results for this | | | e | 5:28 AM | | procedure are in the | | | | PDT | | results section. | + +--------+ + + + | PTT | Routin | 05/06/2018 | | Results for this | | | e | 11:56 PM | | procedure are in the | | | | PDT | | results section. | + +--------+ + + + | POC GLUCOSE | Routin | 05/06/2018 | | Results for this | | | e | 9:06 PM | | procedure are in the | | | | PDT | | results section. | + +--------+ + + + | PTT | Routin | 05/06/2018 | | Results for this | | | e | 5:56 PM | | procedure are in the | | | | PDT | | results section. | + +--------+ + + + | POC GLUCOSE | Routin | 05/06/2018 | | Results for this | | | e | 4:16 PM | | procedure are in the | | | | PDT | | results section. | + +--------+ + + + | PTT | Routin | 05/06/2018 | | Results for this | | | e | 11:22 AM | | procedure are in the | | | | PDT | | results section. | + +--------+ + + + | POC GLUCOSE | Routin | 05/06/2018 | | Results for this | | | e | 11:20 AM | | procedure are in the | | | | PDT | | results section. | + +--------+ + + + | POC GLUCOSE | Routin | 05/06/2018 | | Results for this | | | e | 5:25 AM | | procedure are in the | | | | PDT | | results section. | + +--------+ + + + | EXTERNAL LAB: CBC | Routin | 05/06/2018 | | Results for this | | | e | 4:49 AM | | procedure are in the | | | | PDT | | results section. | + +--------+ + + + | PTT | Routin | 05/06/2018 | | Results for this | | | e | 4:49 AM | | procedure are in the | | | | PDT | | results section. | + +--------+ + + + | RENAL FUNCTION PANEL | Routin | 05/06/2018 | | Results for this | | | e | 4:49 AM | | procedure are in the | | | | PDT | | results section. | + +--------+ + + + | POC GLUCOSE | Routin | 05/05/2018 | | Results for this | | | e | 9:03 PM | | procedure are in the | | | | PDT | | results section. | + +--------+ + + + | POC GLUCOSE | Routin | 05/05/2018 | | Results for this | | | e | 4:42 PM | | procedure are in the | | | | PDT | | results section. | + +--------+ + + + | POC GLUCOSE | Routin | 05/05/2018 | | Results for this | | | e | 11:27 AM | | procedure are in the | | | | PDT | | results section. | + +--------+ + + + | URINALYSIS WITH | Routin | 05/05/2018 | | Results for this | | MICROSCOPIC IF | e | 6:20 AM | | procedure are in the | | INDICATED | | PDT | | results section. | + +--------+ + + + | POC GLUCOSE | Routin | 05/05/2018 | | Results for this | | | e | 5:03 AM | | procedure are in the | | | | PDT | | results section. | + +--------+ + + + | PTT | Routin | 05/05/2018 | | Results for this | | | e | 4:17 AM | | procedure are in the | | | | PDT | | results section. | + +--------+ + + + | PTT | Routin | 05/04/2018 | | Results for this | | | e | 10:15 PM | | procedure are in the | | | | PDT | | results section. | + +--------+ + + + | POC GLUCOSE | Routin | 05/04/2018 | | Results for this | | | e | 9:14 PM | | procedure are in the | | | | PDT | | results section. | + +--------+ + + + | POC GLUCOSE | Routin | 05/04/2018 | | Results for this | | | e | 4:33 PM | | procedure are in the | | | | PDT | | results section. | + +--------+ + + + | PTT | Routin | 05/04/2018 | | Results for this | | | e | 3:25 PM | | procedure are in the | | | | PDT | | results section. | + +--------+ + + + | POC GLUCOSE | Routin | 05/04/2018 | | Results for this | | | e | 11:24 AM | | procedure are in the | | | | PDT | | results section. | + +--------+ + + + | US RENAL LIMITED | Routin | 05/04/2018 | | Results for this | | | e | 11:05 AM | | procedure are in the | | | | PDT | | results section. | + +--------+ + + + | CT CHEST WO CONTRAST | Routin | 05/04/2018 | | Results for this | | | e | 9:02 AM | | procedure are in the | | | | PDT | | results section. | + +--------+ + + + | PTT | Routin | 05/04/2018 | | Results for this | | | e | 8:51 AM | | procedure are in the | | | | PDT | | results section. | + +--------+ + + + | PROTIME INR | Routin | 05/04/2018 | | Results for this | | | e | 8:51 AM | | procedure are in the | | | | PDT | | results section. | + +--------+ + + + | CBC NO DIFFERENTIAL | Routin | 05/04/2018 | | Results for this | | | e | 8:51 AM | | procedure are in the | | | | PDT | | results section. | + +--------+ + + + | POC GLUCOSE | Routin | 05/04/2018 | | Results for this | | | e | 5:05 AM | | procedure are in the | | | | PDT | | results section. | + +--------+ + + + | EXTERNAL LAB: CBC | Routin | 05/04/2018 | | Results for this | | | e | 3:59 AM | | procedure are in the | | | | PDT | | results section. | + +--------+ + + + | MAGNESIUM | Routin | 05/04/2018 | | Results for this | | | e | 3:59 AM | | procedure are in the | | | | PDT | | results section. | + +--------+ + + + | RENAL FUNCTION PANEL | Routin | 05/04/2018 | | Results for this | | | e | 3:59 AM | | procedure are in the | | | | PDT | | results section. | + +--------+ + + + | POC GLUCOSE | Routin | 05/03/2018 | | Results for this | | | e | 9:07 PM | | procedure are in the | | | | PDT | | results section. | + +--------+ + + + | POC GLUCOSE | Routin | 05/03/2018 | | Results for this | | | e | 4:45 PM | | procedure are in the | | | | PDT | | results section. | + +--------+ + + + | CV CARDIAC PROCEDURE | Routin | 05/03/2018 | | Results for this | | | e | 1:10 PM | | procedure are in the | | | | PDT | | results section. | + +--------+ + + + | EXTERNAL LAB: CBC | Routin | 05/03/2018 | | Results for this | | | e | 5:12 AM | | procedure are in the | | | | PDT | | results section. | + +--------+ + + + | B TYPE NATRIURETIC | Routin | 05/03/2018 | | Results for this | | PEPTIDE | e | 5:12 AM | | procedure are in the | | | | PDT | | results section. | + +--------+ + + + | COMPREHENSIVE | Routin | 05/03/2018 | | Results for this | | METABOLIC PANEL | e | 5:12 AM | | procedure are in the | | | | PDT | | results section. | + +--------+ + + + | NM MYOCARDIAL | Routin | 05/02/2018 | | Results for this | | PERFUSION MULT SPECT | e | 11:01 AM | | procedure are in the | | | | PDT | | results section. | + +--------+ + + + | EXTERNAL LAB: CBC | Routin | 05/02/2018 | | Results for this | | | e | 4:37 AM | | procedure are in the | | | | PDT | | results section. | + +--------+ + + + | TSH | Routin | 05/02/2018 | | Results for this | | | e | 4:37 AM | | procedure are in the | | | | PDT | | results section. | + +--------+ + + + | PHOSPHORUS | Routin | 05/02/2018 | | Results for this | | | e | 4:37 AM | | procedure are in the | | | | PDT | | results section. | + +--------+ + + + | B TYPE NATRIURETIC | Routin | 05/02/2018 | | Results for this | | PEPTIDE | e | 4:37 AM | | procedure are in the | | | | PDT | | results section. | + +--------+ + + + | MAGNESIUM | Routin | 05/02/2018 | | Results for this | | | e | 4:37 AM | | procedure are in the | | | | PDT | | results section. | + +--------+ + + + | BASIC METABOLIC | Routin | 05/02/2018 | | Results for this | | PANEL | e | 4:37 AM | | procedure are in the | | | | PDT | | results section. | + +--------+ + + + | XR CHEST 1 VIEW | Routin | 05/01/2018 | | Results for this | | | e | 6:21 PM | | procedure are in the | | | | PDT | | results section. | + +--------+ + + + | TROPONIN I | Routin | 05/01/2018 | | Results for this | | | e | 6:05 PM | | procedure are in the | | | | PDT | | results section. | + +--------+ + + + | ECHO COMPLETE W | Routin | 05/01/2018 | | Results for this | | CONTRAST | e | 3:03 PM | | procedure are in the | | | | PDT | | results section. | + +--------+ + + + | TROPONIN I | Routin | 05/01/2018 | | Results for this | | | e | 11:41 AM | | procedure are in the | | | | PDT | | results section. | + +--------+ + + + | XR CHEST 2 VIEWS | Routin | 05/01/2018 | | Results for this | | | e | 9:07 AM | | procedure are in the | | | | PDT | | results section. | + +--------+ + + + | HISTORICAL LAB PANEL | Routin | 05/01/2018 | | Results for this | | RESULT | e | 8:15 AM | | procedure are in the | | | | PDT | | results section. | + +--------+ + + + | TROPONIN I | Routin | 05/01/2018 | | Results for this | | | e | 8:15 AM | | procedure are in the | | | | PDT | | results section. | + +--------+ + + + | B TYPE NATRIURETIC | Routin | 05/01/2018 | | Results for this | | PEPTIDE | e | 8:15 AM | | procedure are in the | | | | PDT | | results section. | + +--------+ + + + | ECG 12 LEAD | Routin | 05/01/2018 | | Results for this | | | e | 8:00 AM | | procedure are in the | | | | PDT | | results section. | + +--------+ + + + documented in this encounter Results POC Glucose (05/13/2018 11:18 AM PDT) + + + + + + | Component | Value | Ref Range | Performed | Pathologist | | | | | At | Signature | + + + + + + | Glucose, | 93Comment: Testing | 65 - 99 mg/dL | EXTERNAL | | | Fingerstick | performed at [facility];[address] | | LAB | | | | [address] [facility];[place], [place] | | | | | | [address] | | | | + + + + + + + + | Specimen | + + | | + + + +---------+ + + | Performing | Address | City/State/Zipcode | Phone Number | | Organization | | | | + +---------+ + + | EXTERNAL LAB | | | | + +---------+ + + PTT (05/13/2018 9:46 AM PDT) + + + + + + | Component | Value | Ref Range | Performed | Pathologist | | | | | At | Signature | + + + + + + | aPTT, | 53 (H)Comment: Testing | 23 - 32 seconds | EXTERNAL | | | Patient | performed at [facility];[address] | | LAB | | | | [address];[place] | | | | | | [address] | | | | + + + + + + + + | Specimen | + + | Blood specimen | | (specimen) | + + + +---------+ + + | Performing | Address | City/State/Zipcode | Phone Number | | Organization | | | | + +---------+ + + | EXTERNAL LAB | | | | + +---------+ + + POC Glucose (05/13/2018 5:20 AM PDT) + + + + + + | Component | Value | Ref Range | Performed | Pathologist | | | | | At | Signature | + + + + + + | Glucose, | 124 (H)Comment: Testing | 65 - 99 mg/dL | EXTERNAL | | | Fingerstick | performed at [facility];[address] | | LAB | | | | [address];[place], [place] | | | | | | [address] | | | | + + + + + + + + | Specimen | + + | | + + + +---------+ + + | Performing | Address | City/State/Zipcode | Phone Number | | Organization | | | | + +---------+ + + | EXTERNAL LAB | | | | + +---------+ + + PTT (05/13/2018 3:24 AM PDT) + + + + + + | Component | Value | Ref Range | Performed | Pathologist | | | | | At | Signature | + + + + + + | aPTT, | 67 (H)Comment: Testing | 23 - 32 seconds | EXTERNAL | | | Patient | performed at [facility];[address] | | LAB | | | | [address] [facility];[place], [place] | | | | | | [address] | | | | + + + + + + + + | Specimen | + + | Blood specimen | | (specimen) | + + + +---------+ + + | Performing | Address | City/State/Zipcode | Phone Number | | Organization | | | | + +---------+ + + | EXTERNAL LAB | | | | + +---------+ + + External Lab: CBC (05/13/2018 3:24 AM PDT) + + + + + + | Component | Value | Ref Range | Performed | Pathologist | | | | | At | Signature | + + + + + + | WBC | 6.76 | 3.80 - 11.00 | EXTERNAL | | | | | K/uL | LAB | | + + + + + + | Red Blood | 4.06 (L) | 4.20 - 5.70 | EXTERNAL | | | Cells | | M/uL | LAB | | | Counted | | | | | + + + + + + | Hemoglobin | 12.5 (L) | 13.2 - 17.0 | EXTERNAL | | | | | g/dL | LAB | | + + + + + + | Hematocrit, | 37.4 (L) | 39.0 - 50.0 % | EXTERNAL | | | POC | | | LAB | | + + + + + + | MCV | 91.9 | 80.0 - 100.0 fl | EXTERNAL | | | | | | LAB | | + + + + + + | MCH | 30.8 | 27.0 - 34.0 pg | EXTERNAL | | | | | | LAB | | + + + + + + | MCHC | 33.5 | 32.0 - 35.5 | EXTERNAL | | | | | g/dL | LAB | | + + + + + + | RDW-CV | 47.3 | 37 - 53 fl | EXTERNAL | | | | | | LAB | | + + + + + + | Platelet | 150 | 150 - 400 K/uL | EXTERNAL | | | Count | | | LAB | | | Plasma | | | | | + + + + + + | MPV | 9.4 | fl | EXTERNAL | | | | | | LAB | | + + + + + + | Differentia | AUTOMATED | | EXTERNAL | | | l Type | | | LAB | | + + + + + + | % Segmented | 63.83 | % | EXTERNAL | | | | | | LAB | | | Neutrophils | | | | | + + + + + + | % | 24.71 | % | EXTERNAL | | | Lymphocytes | | | LAB | | + + + + + + | % Monocytes | 9.45 | % | EXTERNAL | | | | | | LAB | | + + + + + + | % | 1.58 | % | EXTERNAL | | | Eosinophils | | | LAB | | + + + + + + | % Basophils | 0.43 | % | EXTERNAL | | | | | | LAB | | + + + + + + | Absolute | 4.31 | 1.90 - 7.40 | EXTERNAL | | | Segmented | | K/uL | LAB | | | Neutrophils | | | | | + + + + + + | Absolute | 1.67 | 1.00 - 3.90 | EXTERNAL | | | Lymphocytes | | K/uL | LAB | | + + + + + + | Absolute | 0.64 | 0.00 - 0.80 | EXTERNAL | | | Monocytes | | K/uL | LAB | | + + + + + + | Absolute | 0.11 | 0.00 - 0.50 | EXTERNAL | | | Eosinophils | | K/uL | LAB | | + + + + + + | Absolute | 0.03Comment: Testing | 0.00 - 0.10 | EXTERNAL | | | Basophils | performed at [facility], [address] | [address] | LAB | | | | [address], | | | | | | [place] [address] | | | | + + + + + + + + | Specimen | + + | Blood specimen | | (specimen) | + + + +---------+ + + | Performing | Address | City/State/Zipcode | Phone Number | | Organization | | | | + +---------+ + + | EXTERNAL LAB | | | | + +---------+ + + Magnesium (05/13/2018 3:24 AM PDT) + + + + + + | Component | Value | Ref Range | Performed | Pathologist | | | | | At | Signature | + + + + + + | Magnesium | 2.5 (H)Comment: Testing | 1.7 - 2.4 mg/dL | EXTERNAL | | | | performed at [facility], [address] | | LAB | | | | [address], | | | | | | [place] [address] | | | | + + + + + + + + | Specimen | + + | Blood specimen | | (specimen) | + + + +---------+ + + | Performing | Address | City/State/Zipcode | Phone Number | | Organization | | | | + +---------+ + + | EXTERNAL LAB | | | | + +---------+ + + Comprehensive Metabolic Panel (05/13/2018 3:24 AM PDT) + + + + + + | Component | Value | Ref Range | Performed | Pathologist | | | | | At | Signature | + + + + + + | Na | 138 | 135 - 145 | EXTERNAL | | | | | mmol/L | LAB | | + + + + + + | K | 4.2 | 3.5 - 4.9 | EXTERNAL | | | | | mmol/L | LAB | | + + + + + + | Cl | 102 | 99 - 109 mmol/L | EXTERNAL | | | | | | LAB | | + + + + + + | CO2 | 25 | 23 - 32 mmol/L | EXTERNAL | | | | | | LAB | | + + + + + + | Anion Gap | 15 | 5 - 20 mmol/L | EXTERNAL | | | | | | LAB | | + + + + + + | Glucose, | 134 (H) | 65 - 99 mg/dL | EXTERNAL | | | Fasting | | | LAB | | + + + + + + | BUN | 24 | 8 - 25 mg/dL | EXTERNAL | | | | | | LAB | | + + + + + + | Creatinine | 1.8 (H) | 0.70 - 1.30 | EXTERNAL | | | | | mg/dL | LAB | | + + + + + + | BUN/Creatin | 13 | | EXTERNAL | | | ine Ratio | | | LAB | | + + + + + + | Calcium | 8.4 (L) | 8.5 - 10.5 | EXTERNAL | | | | | mg/dL | LAB | | + + + + + + | Protein, | 6.5 | 6.3 - 8.2 g/dL | EXTERNAL | | | Total | | | LAB | | + + + + + + | Albumin | 3.3 | 3.3 - 4.8 g/dL | EXTERNAL | | | | | | LAB | | + + + + + + | Globulin | 3.2 | 1.3 - 4.9 g/dL | EXTERNAL | | | | | | LAB | | + + + + + + | A/G Ratio | 1.0 | 1.0 - 2.4 | EXTERNAL | | | | | | LAB | | + + + + + + | Bilirubin | 0.3 | 0.1 - 1.5 mg/dL | EXTERNAL | | | Total | | | LAB | | + + + + + + | ALP, | 76 | 35 - 115 U/L | EXTERNAL | | | External | | | LAB | | + + + + + + | AST | 19 | 10 - 45 U/L | EXTERNAL | | | | | | LAB | | + + + + + + | ALT | 46 | 10 - 65 U/L | EXTERNAL | | | | | | LAB | | + + + + + + | Estimated | 38 (L)Comment: GFR <60: | mL/min/1.73m2 | EXTERNAL | | | GFR | CHRONIC KIDNEY DISEASE, | | LAB | | | | IF FOUND OVER A 3 MONTH | | | | | | PERIOD.GFR <15: KIDNEY | | | | | | FAILURE.FOR | | | | | | AMERICANS, MULTIPLY THE | | | | | | CALCULATED GFR BY | | | | | | 1.210.This eGFR is | | | | | | calculated using the | | | | | | MDRD IDLA traceable | | | | | | equation.Testing | | | | | | performed at [facility], [address] | | | | | | [facility], | | | | | | [place] [address] | | | | + + + + + + + + | Specimen | + + | Blood specimen | | (specimen) | + + + +---------+ + + | Performing | Address | City/State/Zipcode | Phone Number | | Organization | | | | + +---------+ + + | EXTERNAL LAB | | | | + +---------+ + + POC Glucose (05/12/2018 9:04 PM PDT) + + + + + + | Component | Value | Ref Range | Performed | Pathologist | | | | | At | Signature | + + + + + + | Glucose, | 137 (H)Comment: Testing | 65 - 99 mg/dL | EXTERNAL | | | Fingerstick | performed at [facility];[address] | | LAB | | | | [address];[place] | | | | | | [address] | | | | + + + + + + + + | Specimen | + + | | + + + +---------+ + + | Performing | Address | City/State/Zipcode | Phone Number | | Organization | | | | + +---------+ + + | EXTERNAL LAB | | | | + +---------+ + + PTT (05/12/2018 7:29 PM PDT) + + + + + + | Component | Value | Ref Range | Performed | Pathologist | | | | | At | Signature | + + + + + + | aPTT, | 45 (H)Comment: Testing | 23 - 32 seconds | EXTERNAL | | | Patient | performed at [facility];[address] | | LAB | | | | [address];[place] | | | | | | [address] | | | | + + + + + + + + | Specimen | + + | Blood specimen | | (specimen) | + + + +---------+ + + | Performing | Address | City/State/Zipcode | Phone Number | | Organization | | | | + +---------+ + + | EXTERNAL LAB | | | | + +---------+ + + POC Glucose (05/12/2018 4:27 PM PDT) + + + + + + | Component | Value | Ref Range | Performed | Pathologist | | | | | At | Signature | + + + + + + | Glucose, | 132 (H)Comment: Testing | 65 - 99 mg/dL | EXTERNAL | | | Fingerstick | performed at [facility];[address] | | LAB | | | | [address];[place], [place] | | | | | | [address] | | | | + + + + + + + + | Specimen | + + | | + + + +---------+ + + | Performing | Address | City/State/Zipcode | Phone Number | | Organization | | | | + +---------+ + + | EXTERNAL LAB | | | | + +---------+ + + PTT (05/12/2018 1:08 PM PDT) + + + + + + | Component | Value | Ref Range | Performed | Pathologist | | | | | At | Signature | + + + + + + | aPTT, | 49 (H)Comment: Testing | 23 - 32 seconds | EXTERNAL | | | Patient | performed at [facility];[address] | | LAB | | | | [address];[place] | | | | | | [address] | | | | + + + + + + + + | Specimen | + + | Blood specimen | | (specimen) | + + + +---------+ + + | Performing | Address | City/State/Zipcode | Phone Number | | Organization | | | | + +---------+ + + | EXTERNAL LAB | | | | + +---------+ + + POC Glucose (05/12/2018 12:53 PM PDT) + + + + + + | Component | Value | Ref Range | Performed | Pathologist | | | | | At | Signature | + + + + + + | Glucose, | 180 (H)Comment: Testing | 65 - 99 mg/dL | EXTERNAL | | | Fingerstick | performed at [facility];[address] | | LAB | | | | [address];[place], [place] | | | | | | [address] | | | | + + + + + + + + | Specimen | + + | | + + + +---------+ + + | Performing | Address | City/State/Zipcode | Phone Number | | Organization | | | | + +---------+ + + | EXTERNAL LAB | | | | + +---------+ + + POC Glucose (05/12/2018 5:26 AM PDT) + + + + + + | Component | Value | Ref Range | Performed | Pathologist | | | | | At | Signature | + + + + + + | Glucose, | 131 (H)Comment: Testing | 65 - 99 mg/dL | EXTERNAL | | | Fingerstick | performed at [facility];[address] | | LAB | | | | [address];[place] | | | | | | [address] | | | | + + + + + + + + | Specimen | + + | | + + + +---------+ + + | Performing | Address | City/State/Zipcode | Phone Number | | Organization | | | | + +---------+ + + | EXTERNAL LAB | | | | + +---------+ + + PTT (05/12/2018 4:35 AM PDT) + + + + + + | Component | Value | Ref Range | Performed | Pathologist | | | | | At | Signature | + + + + + + | aPTT, | 44 (H)Comment: Testing | 23 - 32 seconds | EXTERNAL | | | Patient | performed at [facility];[address] | | LAB | | | | [address];[place], [place] | | | | | | [address] | | | | + + + + + + + + | Specimen | + + | Blood specimen | | (specimen) | + + + +---------+ + + | Performing | Address | City/State/Zipcode | Phone Number | | Organization | | | | + +---------+ + + | EXTERNAL LAB | | | | + +---------+ + + External Lab: CBC (05/12/2018 4:35 AM PDT) + + + + + + | Component | Value | Ref Range | Performed | Pathologist | | | | | At | Signature | + + + + + + | WBC | 9.43 | 3.80 - 11.00 | EXTERNAL | | | | | K/uL | LAB | | + + + + + + | Red Blood | 4.43 | 4.20 - 5.70 | EXTERNAL | | | Cells | | M/uL | LAB | | | Counted | | | | | + + + + + + | Hemoglobin | 13.8 | 13.2 - 17.0 | EXTERNAL | | | | | g/dL | LAB | | + + + + + + | Hematocrit, | 40.0 | 39.0 - 50.0 % | EXTERNAL | | | POC | | | LAB | | + + + + + + | MCV | 90.3 | 80.0 - 100.0 fl | EXTERNAL | | | | | | LAB | | + + + + + + | MCH | 31.0 | 27.0 - 34.0 pg | EXTERNAL | | | | | | LAB | | + + + + + + | MCHC | 34.4 | 32.0 - 35.5 | EXTERNAL | | | | | g/dL | LAB | | + + + + + + | RDW-CV | 45.9 | 37 - 53 fl | EXTERNAL | | | | | | LAB | | + + + + + + | Platelet | 176 | 150 - 400 K/uL | EXTERNAL | | | Count | | | LAB | | | Plasma | | | | | + + + + + + | MPV | 9.5 | fl | EXTERNAL | | | | | | LAB | | + + + + + + | Differentia | AUTOMATED | | EXTERNAL | | | l Type | | | LAB | | + + + + + + | % Segmented | 79.37 | % | EXTERNAL | | | | | | LAB | | | Neutrophils | | | | | + + + + + + | % | 12.35 | % | EXTERNAL | | | Lymphocytes | | | LAB | | + + + + + + | % Monocytes | 7.44 | % | EXTERNAL | | | | | | LAB | | + + + + + + | % | 0.42 | % | EXTERNAL | | | Eosinophils | | | LAB | | + + + + + + | % Basophils | 0.42 | % | EXTERNAL | | | | | | LAB | | + + + + + + | Absolute | 7.49 (H) | 1.90 - 7.40 | EXTERNAL | | | Segmented | | K/uL | LAB | | | Neutrophils | | | | | + + + + + + | Absolute | 1.17 | 1.00 - 3.90 | EXTERNAL | | | Lymphocytes | | K/uL | LAB | | + + + + + + | Absolute | 0.70 | 0.00 - 0.80 | EXTERNAL | | | Monocytes | | K/uL | LAB | | + + + + + + | Absolute | 0.04 | 0.00 - 0.50 | EXTERNAL | | | Eosinophils | | K/uL | LAB | | + + + + + + | Absolute | 0.04Comment: Testing | 0.00 - 0.10 | EXTERNAL | | | Basophils | performed at [facility], [address] | [address] | LAB | | | | [address], | | | | | | [place] [address] | | | | + + + + + + + + | Specimen | + + | Blood specimen | | (specimen) | + + + +---------+ + + | Performing | Address | City/State/Zipcode | Phone Number | | Organization | | | | + +---------+ + + | EXTERNAL LAB | | | | + +---------+ + + Magnesium (05/12/2018 4:35 AM PDT) + + + + + + | Component | Value | Ref Range | Performed | Pathologist | | | | | At | Signature | + + + + + + | Magnesium | 2.4Comment: Testing | 1.7 - 2.4 mg/dL | EXTERNAL | | | | performed at [facility], [address] | | LAB | | | | [address], | | | | | | [place] [address] | | | | + + + + + + + + | Specimen | + + | Blood specimen | | (specimen) | + + + +---------+ + + | Performing | Address | City/State/Zipcode | Phone Number | | Organization | | | | + +---------+ + + | EXTERNAL LAB | | | | + +---------+ + + Comprehensive Metabolic Panel (05/12/2018 4:35 AM PDT) + + + + + + | Component | Value | Ref Range | Performed | Pathologist | | | | | At | Signature | + + + + + + | Na | 139 | 135 - 145 | EXTERNAL | | | | | mmol/L | LAB | | + + + + + + | K | 4.5 | 3.5 - 4.9 | EXTERNAL | | | | | mmol/L | LAB | | + + + + + + | Cl | 103 | 99 - 109 mmol/L | EXTERNAL | | | | | | LAB | | + + + + + + | CO2 | 26 | 23 - 32 mmol/L | EXTERNAL | | | | | | LAB | | + + + + + + | Anion Gap | 15 | 5 - 20 mmol/L | EXTERNAL | | | | | | LAB | | + + + + + + | Glucose, | 132 (H) | 65 - 99 mg/dL | EXTERNAL | | | Fasting | | | LAB | | + + + + + + | BUN | 21 | 8 - 25 mg/dL | EXTERNAL | | | | | | LAB | | + + + + + + | Creatinine | 1.9 (H) | 0.70 - 1.30 | EXTERNAL | | | | | mg/dL | LAB | | + + + + + + | BUN/Creatin | 11 | | EXTERNAL | | | ine Ratio | | | LAB | | + + + + + + | Calcium | 8.6 | 8.5 - 10.5 | EXTERNAL | | | | | mg/dL | LAB | | + + + + + + | Protein, | 7.4 | 6.3 - 8.2 g/dL | EXTERNAL | | | Total | | | LAB | | + + + + + + | Albumin | 3.5 | 3.3 - 4.8 g/dL | EXTERNAL | | | | | | LAB | | + + + + + + | Globulin | 3.9 | 1.3 - 4.9 g/dL | EXTERNAL | | | | | | LAB | | + + + + + + | A/G Ratio | 0.9 (L) | 1.0 - 2.4 | EXTERNAL | | | | | | LAB | | + + + + + + | Bilirubin | 0.4 | 0.1 - 1.5 mg/dL | EXTERNAL | | | Total | | | LAB | | + + + + + + | ALP, | 97 | 35 - 115 U/L | EXTERNAL | | | External | | | LAB | | + + + + + + | AST | 21 | 10 - 45 U/L | EXTERNAL | | | | | | LAB | | + + + + + + | ALT | 57 | 10 - 65 U/L | EXTERNAL | | | | | | LAB | | + + + + + + | Estimated | 36 (L)Comment: GFR <60: | mL/min/1.73m2 | EXTERNAL | | | GFR | CHRONIC KIDNEY DISEASE, | | LAB | | | | IF FOUND OVER A 3 MONTH | | | | | | PERIOD.GFR <15: KIDNEY | | | | | | FAILURE.FOR | | | | | | AMERICANS, MULTIPLY THE | | | | | | CALCULATED GFR BY | | | | | | 1.210.This eGFR is | | | | | | calculated using the | | | | | | MDRD IDMS traceable | | | | | | equation.Testing | | | | | | performed at [facility], [address] | | | | | [address], | | | | | | [place] [address] | | | | + + + + + + + + | Specimen | + + | Blood specimen | | (specimen) | + + + +---------+ + + | Performing | Address | City/State/Zipcode | Phone Number | | Organization | | | | + +---------+ + + | EXTERNAL LAB | | | | + +---------+ + + XR Chest 1 Vw (05/11/2018 10:38 PM PDT) + + | Specimen | + + | | + + + + + | Impressions | Performed At | + + + | 1. Interval development of bilateral perihilar infiltrate in the | | | appropriate clinical setting could represent acute pulmonary edema | | | versus a bilateral infiltrate. Correlate clinically 2. Transvenous | | | pacemaker unchanged in position. | | + + + + + + | Narrative | Performed At | + + + | [facility] XR CHEST 1 VIEW 05/11/2018 10:38 PM History: | | | 62 years. Male. Short of breath Technique: AP supine | | | portable view of the chest at 2237 hours. Compared to 05/01/2018. | | | Findings: Sequential transvenous pacemaker entering the left | | | subclavian route is again noted the leads appear to be unchanged in | | | position. Leads are continuous. Cardiac size is within the range of | | | normal. Interval development of bilateral perihilar and central | | | airspace opacities and reticular infiltrates suggesting pulmonary | | | edema versus bilateral infiltrate/pneumonia. No significant effusion | | | or pneumothorax. | | + + + + --+ | Procedure Note | + --+ | Sebastian, Rad Conversion - 04/20/2019 8:30 AM PDT [facility] CHEST 1 VIEW05/11/2018 | | 10:38 PM History: 62 years. Male. Short of breath Technique: AP supine portable view | | of the chest at 2237 hours. Compared to 05/01/2018. Findings: Sequential transvenous | | pacemaker entering the left subclavian route is again noted the leads appear to be | | unchanged in position. Leads are continuous. Cardiac size is within the range of normal. | | Interval development of bilateral perihilar and central airspace opacities and | | reticular infiltrates suggesting pulmonary edema versus bilateral infiltrate/pneumonia. | | No significant effusion or pneumothorax.IMPRESSION: 1. Interval development of | | bilateral perihilar infiltrate in the appropriate clinical setting could represent acute | | pulmonary edema versus a bilateral infiltrate. Correlate clinically2. Transvenous | | pacemaker unchanged in position. Electronically signed by Elder Israel MD on | | 05/11/2018 10:41 PM | |1. Interval development of bilateral perihilar infiltrate in the appropriate clinical sett ing could represent acute pulmonary edema versus a bilateral infiltrate. Correlate clinicall y | |2. Transvenous pacemaker unchanged in position. | | | | | + --+ POC Glucose (05/11/2018 9:30 PM PDT) + + + + + + | Component | Value | Ref Range | Performed | Pathologist | | | | | At | Signature | + + + + + + | Glucose, | 114 (H)Comment: Testing | 65 - 99 mg/dL | EXTERNAL | | | Fingerstick | performed at [facility];[address] | | LAB | | | | [address];[place] | | | | | | [address] | | | | + + + + + + + + | Specimen | + + | | + + + +---------+ + + | Performing | Address | City/State/Zipcode | Phone Number | | Organization | | | | + +---------+ + + | EXTERNAL LAB | | | | + +---------+ + + POC Glucose (05/11/2018 5:07 PM PDT) + + + + + + | Component | Value | Ref Range | Performed | Pathologist | | | | | At | Signature | + + + + + + | Glucose, | 131 (H)Comment: Testing | 65 - 99 mg/dL | EXTERNAL | | | Fingerstick | performed at [facility];[address] | | LAB | | | | [address];[place], [place] | | | | | | [address] | | | | + + + + + + + + | Specimen | + + | | + + + +---------+ + + | Performing | Address | City/State/Zipcode | Phone Number | | Organization | | | | + +---------+ + + | EXTERNAL LAB | | | | + +---------+ + + POC Glucose (05/11/2018 11:30 AM PDT) + + + + + + | Component | Value | Ref Range | Performed | Pathologist | | | | | At | Signature | + + + + + + | Glucose, | 130 (H)Comment: Testing | 65 - 99 mg/dL | EXTERNAL | | | Fingerstick | performed at [facility];[address] | | LAB | | | | [address];[place] | | | | | | [address] | | | | + + + + + + + + | Specimen | + + | | + + + +---------+ + + | Performing | Address | City/State/Zipcode | Phone Number | | Organization | | | | + +---------+ + + | EXTERNAL LAB | | | | + +---------+ + + PTT (05/11/2018 11:01 AM PDT) + + + + + + | Component | Value | Ref Range | Performed | Pathologist | | | | | At | Signature | + + + + + + | aPTT, | 47 (H)Comment: Testing | 23 - 32 seconds | EXTERNAL | | | Patient | performed at [facility];[address] | | LAB | | | | [address];[place], [place] | | | | | | [address] | | | | + + + + + + + + | Specimen | + + | Blood specimen | | (specimen) | + + + +---------+ + + | Performing | Address | City/State/Zipcode | Phone Number | | Organization | | | | + +---------+ + + | EXTERNAL LAB | | | | + +---------+ + + PTT (05/11/2018 5:14 AM PDT) + + + + + + | Component | Value | Ref Range | Performed | Pathologist | | | | | At | Signature | + + + + + + | aPTT, | 54 (H)Comment: Testing | 23 - 32 seconds | EXTERNAL | | | Patient | performed at [facility];[address] | | LAB | | | | [address];[place], [place] | | | | | | [address] | | | | + + + + + + + + | Specimen | + + | Blood specimen | | (specimen) | + + + +---------+ + + | Performing | Address | City/State/Zipcode | Phone Number | | Organization | | | | + +---------+ + + | EXTERNAL LAB | | | | + +---------+ + + External Lab: CBC (05/11/2018 5:14 AM PDT) + + + + + + | Component | Value | Ref Range | Performed | Pathologist | | | | | At | Signature | + + + + + + | WBC | 7.79 | 3.80 - 11.00 | EXTERNAL | | | | | K/uL | LAB | | + + + + + + | Red Blood | 4.49 | 4.20 - 5.70 | EXTERNAL | | | Cells | | M/uL | LAB | | | Counted | | | | | + + + + + + | Hemoglobin | 13.7 | 13.2 - 17.0 | EXTERNAL | | | | | g/dL | LAB | | + + + + + + | Hematocrit, | 41.3 | 39.0 - 50.0 % | EXTERNAL | | | POC | | | LAB | | + + + + + + | MCV | 92.1 | 80.0 - 100.0 fl | EXTERNAL | | | | | | LAB | | + + + + + + | MCH | 30.4 | 27.0 - 34.0 pg | EXTERNAL | | | | | | LAB | | + + + + + + | MCHC | 33.1 | 32.0 - 35.5 | EXTERNAL | | | | | g/dL | LAB | | + + + + + + | RDW-CV | 46.4 | 37 - 53 fl | EXTERNAL | | | | | | LAB | | + + + + + + | Platelet | 175 | 150 - 400 K/uL | EXTERNAL | | | Count | | | LAB | | | Plasma | | | | | + + + + + + | MPV | 9.6 | fl | EXTERNAL | | | | | | LAB | | + + + + + + | Differentia | AUTOMATED | | EXTERNAL | | | l Type | | | LAB | | + + + + + + | % Segmented | 65.46 | % | EXTERNAL | | | | | | LAB | | | Neutrophils | | | | | + + + + + + | % | 21.61 | % | EXTERNAL | | | Lymphocytes | | | LAB | | + + + + + + | % Monocytes | 10.27 | % | EXTERNAL | | | | | | LAB | | + + + + + + | % | 2.06 | % | EXTERNAL | | | Eosinophils | | | LAB | | + + + + + + | % Basophils | 0.60 | % | EXTERNAL | | | | | | LAB | | + + + + + + | Absolute | 5.10 | 1.90 - 7.40 | EXTERNAL | | | Segmented | | K/uL | LAB | | | Neutrophils | | | | | + + + + + + | Absolute | 1.68 | 1.00 - 3.90 | EXTERNAL | | | Lymphocytes | | K/uL | LAB | | + + + + + + | Absolute | 0.80 | 0.00 - 0.80 | EXTERNAL | | | Monocytes | | K/uL | LAB | | + + + + + + | Absolute | 0.16 | 0.00 - 0.50 | EXTERNAL | | | Eosinophils | | K/uL | LAB | | + + + + + + | Absolute | 0.05Comment: Testing | 0.00 - 0.10 | EXTERNAL | | | Basophils | performed at [facility], [address] | K/uL | LAB | | | | [address], | | | | | | [place] [address] | | | | + + + + + + + + | Specimen | + + | Blood specimen | | (specimen) | + + + +---------+ + + | Performing | Address | City/State/Zipcode | Phone Number | | Organization | | | | + +---------+ + + | EXTERNAL LAB | | | | + +---------+ + + POC Glucose (05/11/2018 5:14 AM PDT) + + + + + + | Component | Value | Ref Range | Performed | Pathologist | | | | | At | Signature | + + + + + + | Glucose, | 126 (H)Comment: Testing | 65 - 99 mg/dL | EXTERNAL | | | Fingerstick | performed at [facility];[address] | | LAB | | | | [address];[place], [place] | | | | | | [address] | | | | + + + + + + + + | Specimen | + + | | + + + +---------+ + + | Performing | Address | City/State/Zipcode | Phone Number | | Organization | | | | + +---------+ + + | EXTERNAL LAB | | | | + +---------+ + + Renal Function Panel (05/11/2018 5:14 AM PDT) + + + + + + | Component | Value | Ref Range | Performed | Pathologist | | | | | At | Signature | + + + + + + | Na | 141 | 135 - 145 | EXTERNAL | | | | | mmol/L | LAB | | + + + + + + | K | 4.5 | 3.5 - 4.9 | EXTERNAL | | | | | mmol/L | LAB | | + + + + + + | Cl | 106 | 99 - 109 mmol/L | EXTERNAL | | | | | | LAB | | + + + + + + | CO2 | 25 | 23 - 32 mmol/L | EXTERNAL | | | | | | LAB | | + + + + + + | Anion Gap | 15 | 5 - 20 mmol/L | EXTERNAL | | | | | | LAB | | + + + + + + | Glucose, | 124 (H) | 65 - 99 mg/dL | EXTERNAL | | | Fasting | | | LAB | | + + + + + + | BUN | 18 | 8 - 25 mg/dL | EXTERNAL | | | | | | LAB | | + + + + + + | Creatinine | 1.7 (H) | 0.70 - 1.30 | EXTERNAL | | | | | mg/dL | LAB | | + + + + + + | Calcium | 8.7 | 8.5 - 10.5 | EXTERNAL | | | | | mg/dL | LAB | | + + + + + + | Albumin | 3.5 | 3.3 - 4.8 g/dL | EXTERNAL | | | | | | LAB | | + + + + + + | PHOSPHORUS | 4.2 | 2.3 - 4.8 mg/dL | EXTERNAL | | | | | | LAB | | + + + + + + | Estimated | 41 (L)Comment: GFR <60: | mL/min/1.73m2 | EXTERNAL | | | GFR | CHRONIC KIDNEY DISEASE, | | LAB | | | | IF FOUND OVER A 3 MONTH | | | | | | PERIOD.GFR <15: KIDNEY | | | | | | FAILURE.FOR | | | | | | AMERICANS, MULTIPLY THE | | | | | | CALCULATED GFR BY | | | | | | 1.210.This eGFR is | | | | | | calculated using the | | | | | | MDRD IDMS traceable | | | | | | equation.Testing | | | | | | performed at [facility], [address] | | | | | | [facility], | | | | | | [place] [address] | | | | + + + + + + + + | Specimen | + + | | + + + +---------+ + + | Performing | Address | City/State/Zipcode | Phone Number | | Organization | | | | + +---------+ + + | EXTERNAL LAB | | | | + +---------+ + + POC Glucose (05/10/2018 9:28 PM PDT) + + + + + + | Component | Value | Ref Range | Performed | Pathologist | | | | | At | Signature | + + + + + + | Glucose, | 170 (H)Comment: Testing | 65 - 99 mg/dL | EXTERNAL | | | Fingerstick | performed at [facility];[address] | | LAB | | | | [address];[place] | | | | | | [address] | | | | + + + + + + + + | Specimen | + + | | + + + +---------+ + + | Performing | Address | City/State/Zipcode | Phone Number | | Organization | | | | + +---------+ + + | EXTERNAL LAB | | | | + +---------+ + + PTT (05/10/2018 8:54 PM PDT) + + + + + + | Component | Value | Ref Range | Performed | Pathologist | | | | | At | Signature | + + + + + + | aPTT, | 41 (H)Comment: Testing | 23 - 32 seconds | EXTERNAL | | | Patient | performed at [facility];[address] | | LAB | | | | [address];[place], [place] | | | | | | [address] | | | | + + + + + + + + | Specimen | + + | Blood specimen | | (specimen) | + + + +---------+ + + | Performing | Address | City/State/Zipcode | Phone Number | | Organization | | | | + +---------+ + + | EXTERNAL LAB | | | | + +---------+ + + POC Glucose (05/10/2018 4:24 PM PDT) + + + + + + | Component | Value | Ref Range | Performed | Pathologist | | | | | At | Signature | + + + + + + | Glucose, | 121 (H)Comment: Testing | 65 - 99 mg/dL | EXTERNAL | | | Fingerstick | performed at [facility];[address] | | LAB | | | | [address];[place] | | | | | | [address] | | | | + + + + + + + + | Specimen | + + | | + + + +---------+ + + | Performing | Address | City/State/Zipcode | Phone Number | | Organization | | | | + +---------+ + + | EXTERNAL LAB | | | | + +---------+ + + PTT (05/10/2018 2:10 PM PDT) + + + + + + | Component | Value | Ref Range | Performed | Pathologist | | | | | At | Signature | + + + + + + | aPTT, | 48 (H)Comment: Testing | 23 - 32 seconds | EXTERNAL | | | Patient | performed at [facility];[address] | | LAB | | | | [address];[place] | | | | | | [address] | | | | + + + + + + + + | Specimen | + + | Blood specimen | | (specimen) | + + + +---------+ + + | Performing | Address | City/State/Zipcode | Phone Number | | Organization | | | | + +---------+ + + | EXTERNAL LAB | | | | + +---------+ + + POC Glucose (05/10/2018 12:09 PM PDT) + + + + + + | Component | Value | Ref Range | Performed | Pathologist | | | | | At | Signature | + + + + + + | Glucose, | 110 (H)Comment: Testing | 65 - 99 mg/dL | EXTERNAL | | | Fingerstick | performed at [facility];[address] | | LAB | | | | [address];[place] | | | | | | [address] | | | | + + + + + + + + | Specimen | + + | | + + + +---------+ + + | Performing | Address | City/State/Zipcode | Phone Number | | Organization | | | | + +---------+ + + | EXTERNAL LAB | | | | + +---------+ + + PTT (05/10/2018 6:45 AM PDT) + + + + + + | Component | Value | Ref Range | Performed | Pathologist | | | | | At | Signature | + + + + + + | aPTT, | 60 (H)Comment: Testing | 23 - 32 seconds | EXTERNAL | | | Patient | performed at [facility];[address] | | LAB | | | | [address];[place], [place] | | | | | | [address] | | | | + + + + + + + + | Specimen | + + | Blood specimen | | (specimen) | + + + +---------+ + + | Performing | Address | City/State/Zipcode | Phone Number | | Organization | | | | + +---------+ + + | EXTERNAL LAB | | | | + +---------+ + + Renal Function Panel (05/10/2018 6:45 AM PDT) + + + + + + | Component | Value | Ref Range | Performed | Pathologist | | | | | At | Signature | + + + + + + | Na | 138 | 135 - 145 | EXTERNAL | | | | | mmol/L | LAB | | + + + + + + | K | 4.7 | 3.5 - 4.9 | EXTERNAL | | | | | mmol/L | LAB | | + + + + + + | Cl | 104 | 99 - 109 mmol/L | EXTERNAL | | | | | | LAB | | + + + + + + | CO2 | 25 | 23 - 32 mmol/L | EXTERNAL | | | | | | LAB | | + + + + + + | Anion Gap | 14 | 5 - 20 mmol/L | EXTERNAL | | | | | | LAB | | + + + + + + | Glucose, | 139 (H) | 65 - 99 mg/dL | EXTERNAL | | | Fasting | | | LAB | | + + + + + + | BUN | 21 | 8 - 25 mg/dL | EXTERNAL | | | | | | LAB | | + + + + + + | Creatinine | 1.9 (H) | 0.70 - 1.30 | EXTERNAL | | | | | mg/dL | LAB | | + + + + + + | Calcium | 8.9 | 8.5 - 10.5 | EXTERNAL | | | | | mg/dL | LAB | | + + + + + + | Albumin | 3.8 | 3.3 - 4.8 g/dL | EXTERNAL | | | | | | LAB | | + + + + + + | PHOSPHORUS | 4.2 | 2.3 - 4.8 mg/dL | EXTERNAL | | | | | | LAB | | + + + + + + | Estimated | 36 (L)Comment: GFR <60: | mL/min/1.73m2 | EXTERNAL | | | GFR | CHRONIC KIDNEY DISEASE, | | LAB | | | | IF FOUND OVER A 3 MONTH | | | | | | PERIOD.GFR <15: KIDNEY | | | | | | FAILURE.FOR | | | | | | AMERICANS, MULTIPLY THE | | | | | | CALCULATED GFR BY | | | | | | 1.210.This eGFR is | | | | | | calculated using the | | | | | | MDRD IDMS traceable | | | | | | equation.Testing | | | | | | performed at [facility];[address] | | | | | | [address];[place], [place] | | | | | | [address] | | | | + + + + + + + + | Specimen | + + | Blood specimen | | (specimen) | + + + +---------+ + + | Performing | Address | City/State/Zipcode | Phone Number | | Organization | | | | + +---------+ + + | EXTERNAL LAB | | | | + +---------+ + + POC Glucose (05/10/2018 5:13 AM PDT) + + + + + + | Component | Value | Ref Range | Performed | Pathologist | | | | | At | Signature | + + + + + + | Glucose, | 116 (H)Comment: Testing | 65 - 99 mg/dL | EXTERNAL | | | Fingerstick | performed at [facility];[address] | | LAB | | | | [address];[place] | | | | | | [address] | | | | + + + + + + + + | Specimen | + + | | + + + +---------+ + + | Performing | Address | City/State/Zipcode | Phone Number | | Organization | | | | + +---------+ + + | EXTERNAL LAB | | | | + +---------+ + + PTT (05/10/2018 12:28 AM PDT) + + + + + + | Component | Value | Ref Range | Performed | Pathologist | | | | | At | Signature | + + + + + + | aPTT, | 67 (H)Comment: Testing | 23 - 32 seconds | EXTERNAL | | | Patient | performed at [facility];[address] | | LAB | | | | [address];[place], [place] | | | | | | [address] | | | | + + + + + + + + | Specimen | + + | Blood specimen | | (specimen) | + + + +---------+ + + | Performing | Address | City/State/Zipcode | Phone Number | | Organization | | | | + +---------+ + + | EXTERNAL LAB | | | | + +---------+ + + POC Glucose (05/09/2018 9:21 PM PDT) + + + + + + | Component | Value | Ref Range | Performed | Pathologist | | | | | At | Signature | + + + + + + | Glucose, | 105 (H)Comment: Testing | 65 - 99 mg/dL | EXTERNAL | | | Fingerstick | performed at [facility];[address] | | LAB | | | | [address];[place] | | | | | | [address] | | | | + + + + + + + + | Specimen | + + | | + + + +---------+ + + | Performing | Address | City/State/Zipcode | Phone Number | | Organization | | | | + +---------+ + + | EXTERNAL LAB | | | | + +---------+ + + PTT (05/09/2018 5:52 PM PDT) + + + + + + | Component | Value | Ref Range | Performed | Pathologist | | | | | At | Signature | + + + + + + | aPTT, | 55 (H)Comment: Testing | 23 - 32 seconds | EXTERNAL | | | Patient | performed at [facility];[address] | | LAB | | | | [address];[place], [place] | | | | | | [address] | | | | + + + + + + + + | Specimen | + + | Blood specimen | | (specimen) | + + + +---------+ + + | Performing | Address | City/State/Zipcode | Phone Number | | Organization | | | | + +---------+ + + | EXTERNAL LAB | | | | + +---------+ + + POC Glucose (05/09/2018 5:52 PM PDT) + + + + + + | Component | Value | Ref Range | Performed | Pathologist | | | | | At | Signature | + + + + + + | Glucose, | 122 (H)Comment: Testing | 65 - 99 mg/dL | EXTERNAL | | | Fingerstick | performed at [facility];[address] | | LAB | | | | [address];[place], [place] | | | | | | [address] | | | | + + + + + + + + | Specimen | + + | | + + + +---------+ + + | Performing | Address | City/State/Zipcode | Phone Number | | Organization | | | | + +---------+ + + | EXTERNAL LAB | | | | + +---------+ + + POC Glucose (05/09/2018 4:17 PM PDT) + + + + + + | Component | Value | Ref Range | Performed | Pathologist | | | | | At | Signature | + + + + + + | Glucose, | 153 (H)Comment: Testing | 65 - 99 mg/dL | EXTERNAL | | | Fingerstick | performed at [facility];[address] | | LAB | | | | [address];[place], [place] | | | | | | [address] | | | | + + + + + + + + | Specimen | + + | | + + + +---------+ + + | Performing | Address | City/State/Zipcode | Phone Number | | Organization | | | | + +---------+ + + | EXTERNAL LAB | | | | + +---------+ + + NM Myocardial Perfusion Single (05/09/2018 1:45 PM PDT) + + | Specimen | + + | | + + + + + | Impressions | Performed At | + + + | 1. Hibernating myocardium suspected in the right coronary | | | territory involving the inferior wall and the inferior portion of the | | | septal wall. This region may benefit from reperfusion territory. 2. | | | There is no significant redistribution seen in the anterior wall or | | | anterior portion of the septum on the 4 hour or 24-hour images | | | suggesting this is completely infarcted and will not benefit from | | | reperfusion therapy in the LAD territory. 3. Normal perfusion seen | | | in the left circumflex coronary artery territory involving the lateral | | | wall of the left ventricle. | | + + + + + + | Narrative | Performed At | + + + | RON BRIDGES THALLIUM - HIBERNATING MYOCARDIUM 05/09/2018 | | | 1:45 PM HISTORY: 62 years. Male. Non-ST elevated myocardial | | | infarction. Acute pulmonary edema. Myocardial viability assessment | | | is requested. TECHNIQUE: A same day, single isotope protocol was | | | used. The patient received 4.5 mCi of thallium 201 intravenously. | | | Non-gated SPECT imaging was performed after the initial injection, | | | and then 4 hours and at 24 hours to allow for reperfusion. | | | COMPARISON: Nuclear medicine myocardial stress and rest perfusion | | | exam 05/02/2018 FINDINGS: On the initial thallium perfusion | | | images there is normal uptake in the lateral wall but little to no | | | uptake seen in the inferior wall, septum or anterior wall which is | | | compatible with the findings on the stress and rest myocardial | | | perfusion study. After a four-hour delay there is slightly | | | increased perfusion along the inferior wall region compared with the | | | initial images and at 24 hours there is redistribution of radiotracer | | | in the inferior wall extending towards the septum suggesting | | | hibernating myocardium in the inferior wall corresponding to the | | | right coronary artery territory. No redistribution is seen in the | | | anterior wall or anterior portion of the septum at 4 or 24 hours. | | + + + + + | Procedure Note | + + | Clayton Cortes Conversion - 04/20/2019 8:30 AM ROSE LEMA THALLIUM - | | HIBERNATING MYOCARDIUM05/09/2018 1:45 PM HISTORY:62 years. Male. Non-ST elevated | | myocardial infarction. Acute pulmonary edema. Myocardial viability assessment is | | requested. TECHNIQUE:A same day, single isotope protocol was used. The patient received | | 4.5 mCi of thallium 201 intravenously. Non-gated SPECT imaging was performed after the | | initial injection, and then 4 hours and at 24 hours to allow for reperfusion. | | COMPARISON:Nuclear medicine myocardial stress and rest perfusion exam 05/02/2018 | | FINDINGS:On the initial thallium perfusion images there is normal uptake in the lateral | | wall but little to no uptake seen in the inferior wall, septum or anterior wall which is | | compatible with the findings on the stress and rest myocardial perfusion study. After | | a four-hour delay there is slightly increased perfusion along the inferior wall region | | compared with the initial images and at 24 hours there is redistribution of radiotracer | | in the inferior wall extending towards the septum suggesting hibernating myocardium in | | the inferior wall corresponding to the right coronary artery territory. No | | redistribution is seen in the anterior wall or anterior portion of the septum at 4 or 24 | | hours. IMPRESSION: 1. Hibernating myocardium suspected in the right coronary territory | | involving the inferior wall and the inferior portion of the septal wall. This region | | may benefit from reperfusion territory.2. There is no significant redistribution seen | | in the anterior wall or anterior portion of the septum on the 4 hour or 24-hour images | | suggesting this is completely infarcted and will not benefit from reperfusion therapy in | | the LAD territory.3. Normal perfusion seen in the left circumflex coronary artery | | territory involving the lateral wall of the left ventricle. | | | | | + + PTT (05/09/2018 11:51 AM PDT) + + + + + + | Component | Value | Ref Range | Performed | Pathologist | | | | | At | Signature | + + + + + + | aPTT, | 39 (H)Comment: Testing | 23 - 32 seconds | EXTERNAL | | | Patient | performed at [facility];[address] | | LAB | | | | [address];[place] | | | | | | [address] | | | | + + + + + + + + | Specimen | + + | Blood specimen | | (specimen) | + + + +---------+ + + | Performing | Address | City/State/Zipcode | Phone Number | | Organization | | | | + +---------+ + + | EXTERNAL LAB | | | | + +---------+ + + POC Glucose (05/09/2018 11:43 AM PDT) + + + + + + | Component | Value | Ref Range | Performed | Pathologist | | | | | At | Signature | + + + + + + | Glucose, | 126 (H)Comment: Testing | 65 - 99 mg/dL | EXTERNAL | | | Fingerstick | performed at [facility];[address] | | LAB | | | | [address];[place] | | | | | | [address] | | | | + + + + + + + + | Specimen | + + | | + + + +---------+ + + | Performing | Address | City/State/Zipcode | Phone Number | | Organization | | | | + +---------+ + + | EXTERNAL LAB | | | | + +---------+ + + POC Glucose (05/09/2018 5:48 AM PDT) + + + + + + | Component | Value | Ref Range | Performed | Pathologist | | | | | At | Signature | + + + + + + | Glucose, | 138 (H)Comment: Testing | 65 - 99 mg/dL | EXTERNAL | | | Fingerstick | performed at [facility];[address] | | LAB | | | | [address];[place] | | | | | | [address] | | | | + + + + + + + + | Specimen | + + | | + + + +---------+ + + | Performing | Address | City/State/Zipcode | Phone Number | | Organization | | | | + +---------+ + + | EXTERNAL LAB | | | | + +---------+ + + PTT (05/09/2018 5:45 AM PDT) + + + + + + | Component | Value | Ref Range | Performed | Pathologist | | | | | At | Signature | + + + + + + | aPTT, | 40 (H)Comment: Testing | 23 - 32 seconds | EXTERNAL | | | Patient | performed at [facility];[address] | | LAB | | | | [address];[place], [place] | | | | | | [address] | | | | + + + + + + + + | Specimen | + + | Blood specimen | | (specimen) | + + + +---------+ + + | Performing | Address | City/State/Zipcode | Phone Number | | Organization | | | | + +---------+ + + | EXTERNAL LAB | | | | + +---------+ + + Renal Function Panel (05/09/2018 5:45 AM PDT) + + + + + + | Component | Value | Ref Range | Performed | Pathologist | | | | | At | Signature | + + + + + + | Na | 138 | 135 - 145 | EXTERNAL | | | | | mmol/L | LAB | | + + + + + + | K | 4.2 | 3.5 - 4.9 | EXTERNAL | | | | | mmol/L | LAB | | + + + + + + | Cl | 105 | 99 - 109 mmol/L | EXTERNAL | | | | | | LAB | | + + + + + + | CO2 | 23 | 23 - 32 mmol/L | EXTERNAL | | | | | | LAB | | + + + + + + | Anion Gap | 14 | 5 - 20 mmol/L | EXTERNAL | | | | | | LAB | | + + + + + + | Glucose, | 133 (H) | 65 - 99 mg/dL | EXTERNAL | | | Fasting | | | LAB | | + + + + + + | BUN | 20 | 8 - 25 mg/dL | EXTERNAL | | | | | | LAB | | + + + + + + | Creatinine | 1.8 (H) | 0.70 - 1.30 | EXTERNAL | | | | | mg/dL | LAB | | + + + + + + | Calcium | 8.7 | 8.5 - 10.5 | EXTERNAL | | | | | mg/dL | LAB | | + + + + + + | Albumin | 3.8 | 3.3 - 4.8 g/dL | EXTERNAL | | | | | | LAB | | + + + + + + | PHOSPHORUS | 4.2 | 2.3 - 4.8 mg/dL | EXTERNAL | | | | | | LAB | | + + + + + + | Estimated | 38 (L)Comment: GFR <60: | mL/min/1.73m2 | EXTERNAL | | | GFR | CHRONIC KIDNEY DISEASE, | | LAB | | | | IF FOUND OVER A 3 MONTH | | | | | | PERIOD.GFR <15: KIDNEY | | | | | | FAILURE.FOR | | | | | | AMERICANS, MULTIPLY THE | | | | | | CALCULATED GFR BY | | | | | | 1.210.This eGFR is | | | | | | calculated using the | | | | | | MDRD IDMS traceable | | | | | | equation.Testing | | | | | | performed at [facility], [address] | | | | | [address], | | | | | | [place] [address] | | | | + + + + + + + + | Specimen | + + | Blood specimen | | (specimen) | + + + +---------+ + + | Performing | Address | City/State/Zipcode | Phone Number | | Organization | | | | + +---------+ + + | EXTERNAL LAB | | | | + +---------+ + + PTT (05/08/2018 9:20 PM PDT) + + + + + + | Component | Value | Ref Range | Performed | Pathologist | | | | | At | Signature | + + + + + + | aPTT, | 33 (H)Comment: Testing | 23 - 32 seconds | EXTERNAL | | | Patient | performed at [facility];[address] | | LAB | | | | [address];[place] | | | | | | [address] | | | | + + + + + + + + | Specimen | + + | Blood specimen | | (specimen) | + + + +---------+ + + | Performing | Address | City/State/Zipcode | Phone Number | | Organization | | | | + +---------+ + + | EXTERNAL LAB | | | | + +---------+ + + POC Glucose (05/08/2018 8:58 PM PDT) + + + + + + | Component | Value | Ref Range | Performed | Pathologist | | | | | At | Signature | + + + + + + | Glucose, | 102 (H)Comment: Testing | 65 - 99 mg/dL | EXTERNAL | | | Fingerstick | performed at [facility];[address] | | LAB | | | | [address];[place] | | | | | | [address] | | | | + + + + + + + + | Specimen | + + | | + + + +---------+ + + | Performing | Address | City/State/Zipcode | Phone Number | | Organization | | | | + +---------+ + + | EXTERNAL LAB | | | | + +---------+ + + Potassium (05/08/2018 6:57 PM PDT) + + + + + + | Component | Value | Ref Range | Performed | Pathologist | | | | | At | Signature | + + + + + + | K | 4.2Comment: Testing | 3.5 - 4.9 | EXTERNAL | | | | performed at [facility];[address] | mmol/L | LAB | | | | [address];[place] | | | | | | [address] | | | | + + + + + + + + | Specimen | + + | Blood specimen | | (specimen) | + + + +---------+ + + | Performing | Address | City/State/Zipcode | Phone Number | | Organization | | | | + +---------+ + + | EXTERNAL LAB | | | | + +---------+ + + POC Glucose (05/08/2018 5:54 PM PDT) + + + + + + | Component | Value | Ref Range | Performed | Pathologist | | | | | At | Signature | + + + + + + | Glucose, | 92Comment: Testing | 65 - 99 mg/dL | EXTERNAL | | | Fingerstick | performed at [facility];[address] | | LAB | | | | [address];[place], [place] | | | | | | [address] | | | | + + + + + + + + | Specimen | + + | | + + + +---------+ + + | Performing | Address | City/State/Zipcode | Phone Number | | Organization | | | | + +---------+ + + | EXTERNAL LAB | | | | + +---------+ + + POC Glucose (05/08/2018 5:29 PM PDT) + + + + + + | Component | Value | Ref Range | Performed | Pathologist | | | | | At | Signature | + + + + + + | Glucose, | 55 (L)Comment: Testing | 65 - 99 mg/dL | EXTERNAL | | | Fingerstick | performed at [facility];[address] | | LAB | | | | [address];[place] | | | | | | [address] | | | | + + + + + + + + | Specimen | + + | | + + + +---------+ + + | Performing | Address | City/State/Zipcode | Phone Number | | Organization | | | | + +---------+ + + | EXTERNAL LAB | | | | + +---------+ + + POC Glucose (05/08/2018 4:36 PM PDT) + + + + + + | Component | Value | Ref Range | Performed | Pathologist | | | | | At | Signature | + + + + + + | Glucose, | 279 (H)Comment: Testing | 65 - 99 mg/dL | EXTERNAL | | | Fingerstick | performed at [facility];[address] | | LAB | | | | [address];[place], [place] | | | | | | [address] | | | | + + + + + + + + | Specimen | + + | | + + + +---------+ + + | Performing | Address | City/State/Zipcode | Phone Number | | Organization | | | | + +---------+ + + | EXTERNAL LAB | | | | + +---------+ + + POC Glucose (05/08/2018 11:16 AM PDT) + + + + + + | Component | Value | Ref Range | Performed | Pathologist | | | | | At | Signature | + + + + + + | Glucose, | 113 (H)Comment: Testing | 65 - 99 mg/dL | EXTERNAL | | | Fingerstick | performed at [facility];[address] | | LAB | | | | [address];[place] | | | | | | [address] | | | | + + + + + + + + | Specimen | + + | | + + + +---------+ + + | Performing | Address | City/State/Zipcode | Phone Number | | Organization | | | | + +---------+ + + | EXTERNAL LAB | | | | + +---------+ + + PTT (05/08/2018 8:27 AM PDT) + + + + + + | Component | Value | Ref Range | Performed | Pathologist | | | | | At | Signature | + + + + + + | aPTT, | 58 (H)Comment: Testing | 23 - 32 seconds | EXTERNAL | | | Patient | performed at [facility];[address] | | LAB | | | | [address];[place], [place] | | | | | | [address] | | | | + + + + + + + + | Specimen | + + | Blood specimen | | (specimen) | + + + +---------+ + + | Performing | Address | City/State/Zipcode | Phone Number | | Organization | | | | + +---------+ + + | EXTERNAL LAB | | | | + +---------+ + + POC Glucose (05/08/2018 5:25 AM PDT) + + + + + + | Component | Value | Ref Range | Performed | Pathologist | | | | | At | Signature | + + + + + + | Glucose, | 116 (H)Comment: Testing | 65 - 99 mg/dL | EXTERNAL | | | Fingerstick | performed at [facility];[address] | | LAB | | | | [address];[place], [place] | | | | | | [address] | | | | + + + + + + + + | Specimen | + + | | + + + +---------+ + + | Performing | Address | City/State/Zipcode | Phone Number | | Organization | | | | + +---------+ + + | EXTERNAL LAB | | | | + +---------+ + + Renal Function Panel (05/08/2018 2:27 AM PDT) + + + + + + | Component | Value | Ref Range | Performed | Pathologist | | | | | At | Signature | + + + + + + | Na | 139 | 135 - 145 | EXTERNAL | | | | | mmol/L | LAB | | + + + + + + | K | 5.2 (H)Comment: SPECIMEN | 3.5 - 4.9 | EXTERNAL | | | | SLIGHTLY HEMOLYZED | mmol/L | LAB | | + + + + + + | Cl | 106 | 99 - 109 mmol/L | EXTERNAL | | | | | | LAB | | + + + + + + | CO2 | 24 | 23 - 32 mmol/L | EXTERNAL | | | | | | LAB | | + + + + + + | Anion Gap | 14 | 5 - 20 mmol/L | EXTERNAL | | | | | | LAB | | + + + + + + | Glucose, | 130 (H)Comment: SPECIMEN | 65 - 99 mg/dL | EXTERNAL | | | Fasting | SLIGHTLY HEMOLYZED | | LAB | | + + + + + + | BUN | 23 | 8 - 25 mg/dL | EXTERNAL | | | | | | LAB | | + + + + + + | Creatinine | 1.7 (H)Comment: SPECIMEN | 0.70 - 1.30 | EXTERNAL | | | | SLIGHTLY HEMOLYZED | mg/dL | LAB | | + + + + + + | Calcium | 8.7 | 8.5 - 10.5 | EXTERNAL | | | | | mg/dL | LAB | | + + + + + + | Albumin | 3.3 | 3.3 - 4.8 g/dL | EXTERNAL | | | | | | LAB | | + + + + + + | PHOSPHORUS | 4.7Comment: SPECIMEN | 2.3 - 4.8 mg/dL | EXTERNAL | | | | SLIGHTLY HEMOLYZED | | LAB | | + + + + + + | Estimated | 41 (L)Comment: GFR <60: | mL/min/1.73m2 | EXTERNAL | | | GFR | CHRONIC KIDNEY DISEASE, | | LAB | | | | IF FOUND OVER A 3 MONTH | | | | | | PERIOD.GFR <15: KIDNEY | | | | | | FAILURE.FOR | | | | | | AMERICANS, MULTIPLY THE | | | | | | CALCULATED GFR BY | | | | | | 1.210.This eGFR is | | | | | | calculated using the | | | | | | MDRD IDLA traceable | | | | | | equation.Testing | | | | | | performed at [facility], [address] | | | | | | [facility], | | | | | | [place] [address] | | | | + + + + + + + + | Specimen | + + | Blood specimen | | (specimen) | + + + +---------+ + + | Performing | Address | City/State/Zipcode | Phone Number | | Organization | | | | + +---------+ + + | EXTERNAL LAB | | | | + +---------+ + + PTT (05/08/2018 2:24 AM PDT) + + + + + + | Component | Value | Ref Range | Performed | Pathologist | | | | | At | Signature | + + + + + + | aPTT, | 46 (H)Comment: Testing | 23 - 32 seconds | EXTERNAL | | | Patient | performed at [facility];[address] | | LAB | | | | [address];[place], [place] | | | | | | [address] | | | | + + + + + + + + | Specimen | + + | Blood specimen | | (specimen) | + + + +---------+ + + | Performing | Address | City/State/Zipcode | Phone Number | | Organization | | | | + +---------+ + + | EXTERNAL LAB | | | | + +---------+ + + POC Glucose (05/07/2018 8:44 PM PDT) + + + + + + | Component | Value | Ref Range | Performed | Pathologist | | | | | At | Signature | + + + + + + | Glucose, | 127 (H)Comment: Testing | 65 - 99 mg/dL | EXTERNAL | | | Fingerstick | performed at [facility];[address] | | LAB | | | | [address];[place] | | | | | | [address] | | | | + + + + + + + + | Specimen | + + | | + + + +---------+ + + | Performing | Address | City/State/Zipcode | Phone Number | | Organization | | | | + +---------+ + + | EXTERNAL LAB | | | | + +---------+ + + PTT (05/07/2018 7:14 PM PDT) + + + + + + | Component | Value | Ref Range | Performed | Pathologist | | | | | At | Signature | + + + + + + | aPTT, | 41 (H)Comment: Testing | 23 - 32 seconds | EXTERNAL | | | Patient | performed at [facility];[address] | | LAB | | | | [address];[place], [place] | | | | | | [address] | | | | + + + + + + + + | Specimen | + + | Blood specimen | | (specimen) | + + + +---------+ + + | Performing | Address | City/State/Zipcode | Phone Number | | Organization | | | | + +---------+ + + | EXTERNAL LAB | | | | + +---------+ + + POC Glucose (05/07/2018 4:12 PM PDT) + + + + + + | Component | Value | Ref Range | Performed | Pathologist | | | | | At | Signature | + + + + + + | Glucose, | 135 (H)Comment: Testing | 65 - 99 mg/dL | EXTERNAL | | | Fingerstick | performed at [facility];[address] | | LAB | | | | [address];[place] | | | | | | [address] | | | | + + + + + + + + | Specimen | + + | | + + + +---------+ + + | Performing | Address | City/State/Zipcode | Phone Number | | Organization | | | | + +---------+ + + | EXTERNAL LAB | | | | + +---------+ + + PTT (05/07/2018 12:52 PM PDT) + + + + + + | Component | Value | Ref Range | Performed | Pathologist | | | | | At | Signature | + + + + + + | aPTT, | 41 (H)Comment: Testing | 23 - 32 seconds | EXTERNAL | | | Patient | performed at [facility];[address] | | LAB | | | | [address];[place] | | | | | | [address] | | | | + + + + + + + + | Specimen | + + | Blood specimen | | (specimen) | + + + +---------+ + + | Performing | Address | City/State/Zipcode | Phone Number | | Organization | | | | + +---------+ + + | EXTERNAL LAB | | | | + +---------+ + + POC Glucose (05/07/2018 11:05 AM PDT) + + + + + + | Component | Value | Ref Range | Performed | Pathologist | | | | | At | Signature | + + + + + + | Glucose, | 151 (H)Comment: Testing | 65 - 99 mg/dL | EXTERNAL | | | Fingerstick | performed at [facility];[address] | | LAB | | | | [address];[place] | | | | | | [address] | | | | + + + + + + + + | Specimen | + + | | + + + +---------+ + + | Performing | Address | City/State/Zipcode | Phone Number | | Organization | | | | + +---------+ + + | EXTERNAL LAB | | | | + +---------+ + + PTT (05/07/2018 7:08 AM PDT) + + + + + + | Component | Value | Ref Range | Performed | Pathologist | | | | | At | Signature | + + + + + + | aPTT, | 46 (H)Comment: Testing | 23 - 32 seconds | EXTERNAL | | | Patient | performed at [facility];[address] | | LAB | | | | [address];[place] | | | | | | [address] | | | | + + + + + + + + | Specimen | + + | Blood specimen | | (specimen) | + + + +---------+ + + | Performing | Address | City/State/Zipcode | Phone Number | | Organization | | | | + +---------+ + + | EXTERNAL LAB | | | | + +---------+ + + POC Glucose (05/07/2018 5:28 AM PDT) + + + + + + | Component | Value | Ref Range | Performed | Pathologist | | | | | At | Signature | + + + + + + | Glucose, | 141 (H)Comment: Testing | 65 - 99 mg/dL | EXTERNAL | | | Fingerstick | performed at [facility];[address] | | LAB | | | | [address];[place], [place] | | | | | | [address] | | | | + + + + + + + + | Specimen | + + | | + + + +---------+ + + | Performing | Address | City/State/Zipcode | Phone Number | | Organization | | | | + +---------+ + + | EXTERNAL LAB | | | | + +---------+ + + PTT (05/06/2018 11:56 PM PDT) + + + + + + | Component | Value | Ref Range | Performed | Pathologist | | | | | At | Signature | + + + + + + | aPTT, | 60 (H)Comment: Testing | 23 - 32 seconds | EXTERNAL | | | Patient | performed at [facility];[address] | | LAB | | | | [address];[place] | | | | | | [address] | | | | + + + + + + + + | Specimen | + + | Blood specimen | | (specimen) | + + + +---------+ + + | Performing | Address | City/State/Zipcode | Phone Number | | Organization | | | | + +---------+ + + | EXTERNAL LAB | | | | + +---------+ + + POC Glucose (05/06/2018 9:06 PM PDT) + + + + + + | Component | Value | Ref Range | Performed | Pathologist | | | | | At | Signature | + + + + + + | Glucose, | 141 (H)Comment: Testing | 65 - 99 mg/dL | EXTERNAL | | | Fingerstick | performed at [facility] | | LAB | | | | [address];[place] | | | | | | [address] | | | | + + + + + + + + | Specimen | + + | | + + + +---------+ + + | Performing | Address | City/State/Zipcode | Phone Number | | Organization | | | | + +---------+ + + | EXTERNAL LAB | | | | + +---------+ + + PTT (05/06/2018 5:56 PM PDT) + + + + + + | Component | Value | Ref Range | Performed | Pathologist | | | | | At | Signature | + + + + + + | aPTT, | 55 (H)Comment: Testing | 23 - 32 seconds | EXTERNAL | | | Patient | performed at [facility];[address] | | LAB | | | | [address];[place], [place] | | | | | | [address] | | | | + + + + + + + + | Specimen | + + | Blood specimen | | (specimen) | + + + +---------+ + + | Performing | Address | City/State/Zipcode | Phone Number | | Organization | | | | + +---------+ + + | EXTERNAL LAB | | | | + +---------+ + + POC Glucose (05/06/2018 4:16 PM PDT) + + + + + + | Component | Value | Ref Range | Performed | Pathologist | | | | | At | Signature | + + + + + + | Glucose, | 131 (H)Comment: Testing | 65 - 99 mg/dL | EXTERNAL | | | Fingerstick | performed at [facility];[address] | | LAB | | | | [address];[place], [place] | | | | | | [address] | | | | + + + + + + + + | Specimen | + + | | + + + +---------+ + + | Performing | Address | City/State/Zipcode | Phone Number | | Organization | | | | + +---------+ + + | EXTERNAL LAB | | | | + +---------+ + + PTT (05/06/2018 11:22 AM PDT) + + + + + + | Component | Value | Ref Range | Performed | Pathologist | | | | | At | Signature | + + + + + + | aPTT, | 42 (H)Comment: Testing | 23 - 32 seconds | EXTERNAL | | | Patient | performed at [facility];[address] | | LAB | | | | [address];[place] | | | | | | [address] | | | | + + + + + + + + | Specimen | + + | Blood specimen | | (specimen) | + + + +---------+ + + | Performing | Address | City/State/Zipcode | Phone Number | | Organization | | | | + +---------+ + + | EXTERNAL LAB | | | | + +---------+ + + POC Glucose (05/06/2018 11:20 AM PDT) + + + + + + | Component | Value | Ref Range | Performed | Pathologist | | | | | At | Signature | + + + + + + | Glucose, | 126 (H)Comment: Testing | 65 - 99 mg/dL | EXTERNAL | | | Fingerstick | performed at [facility];[address] | | LAB | | | | [address];[place], [place] | | | | | | [address] | | | | + + + + + + + + | Specimen | + + | | + + + +---------+ + + | Performing | Address | City/State/Zipcode | Phone Number | | Organization | | | | + +---------+ + + | EXTERNAL LAB | | | | + +---------+ + + POC Glucose (05/06/2018 5:25 AM PDT) + + + + + + | Component | Value | Ref Range | Performed | Pathologist | | | | | At | Signature | + + + + + + | Glucose, | 129 (H)Comment: Testing | 65 - 99 mg/dL | EXTERNAL | | | Fingerstick | performed at [facility];[address] | | LAB | | | | [address];[place], [place] | | | | | | [address] | | | | + + + + + + + + | Specimen | + + | | + + + +---------+ + + | Performing | Address | City/State/Zipcode | Phone Number | | Organization | | | | + +---------+ + + | EXTERNAL LAB | | | | + +---------+ + + PTT (05/06/2018 4:49 AM PDT) + + + + + + | Component | Value | Ref Range | Performed | Pathologist | | | | | At | Signature | + + + + + + | aPTT, | 59 (H)Comment: Testing | 23 - 32 seconds | EXTERNAL | | | Patient | performed at [facility];[address] | | LAB | | | | [address];[place], [place] | | | | | | [address] | | | | + + + + + + + + | Specimen | + + | Blood specimen | | (specimen) | + + + +---------+ + + | Performing | Address | City/State/Zipcode | Phone Number | | Organization | | | | + +---------+ + + | EXTERNAL LAB | | | | + +---------+ + + External Lab: CBC (05/06/2018 4:49 AM PDT) + + + + + + | Component | Value | Ref Range | Performed | Pathologist | | | | | At | Signature | + + + + + + | WBC | 8.31 | 3.80 - 11.00 | EXTERNAL | | | | | K/uL | LAB | | + + + + + + | Red Blood | 4.65 | 4.20 - 5.70 | EXTERNAL | | | Cells | | M/uL | LAB | | | Counted | | | | | + + + + + + | Hemoglobin | 14.7 | 13.2 - 17.0 | EXTERNAL | | | | | g/dL | LAB | | + + + + + + | Hematocrit, | 42.0 | 39.0 - 50.0 % | EXTERNAL | | | POC | | | LAB | | + + + + + + | MCV | 90.5 | 80.0 - 100.0 fl | EXTERNAL | | | | | | LAB | | + + + + + + | MCH | 31.5 | 27.0 - 34.0 pg | EXTERNAL | | | | | | LAB | | + + + + + + | MCHC | 34.8 | 32.0 - 35.5 | EXTERNAL | | | | | g/dL | LAB | | + + + + + + | RDW-CV | 46.8 | 37 - 53 fl | EXTERNAL | | | | | | LAB | | + + + + + + | Platelet | 176 | 150 - 400 K/uL | EXTERNAL | | | Count | | | LAB | | | Plasma | | | | | + + + + + + | MPV | 9.2 | fl | EXTERNAL | | | | | | LAB | | + + + + + + | Differentia | AUTOMATED | | EXTERNAL | | | l Type | | | LAB | | + + + + + + | % Segmented | 64.99 | % | EXTERNAL | | | | | | LAB | | | Neutrophils | | | | | + + + + + + | % | 26.20 | % | EXTERNAL | | | Lymphocytes | | | LAB | | + + + + + + | % Monocytes | 6.44 | % | EXTERNAL | | | | | | LAB | | + + + + + + | % | 2.07 | % | EXTERNAL | | | Eosinophils | | | LAB | | + + + + + + | % Basophils | 0.30 | % | EXTERNAL | | | | | | LAB | | + + + + + + | Absolute | 5.40 | 1.90 - 7.40 | EXTERNAL | | | Segmented | | K/uL | LAB | | | Neutrophils | | | | | + + + + + + | Absolute | 2.18 | 1.00 - 3.90 | EXTERNAL | | | Lymphocytes | | K/uL | LAB | | + + + + + + | Absolute | 0.54 | 0.00 - 0.80 | EXTERNAL | | | Monocytes | | K/uL | LAB | | + + + + + + | Absolute | 0.17 | 0.00 - 0.50 | EXTERNAL | | | Eosinophils | | K/uL | LAB | | + + + + + + | Absolute | 0.03Comment: Testing | 0.00 - 0.10 | EXTERNAL | | | Basophils | performed at [facility], [address] | K/uL | LAB | | | | [address], | | | | | | [place] [address] | | | | + + + + + + + + | Specimen | + + | Blood specimen | | (specimen) | + + + +---------+ + + | Performing | Address | City/State/Zipcode | Phone Number | | Organization | | | | + +---------+ + + | EXTERNAL LAB | | | | + +---------+ + + Renal Function Panel (05/06/2018 4:49 AM PDT) + + + + + + | Component | Value | Ref Range | Performed | Pathologist | | | | | At | Signature | + + + + + + | Na | 139 | 135 - 145 | EXTERNAL | | | | | mmol/L | LAB | | + + + + + + | K | 4.4 | 3.5 - 4.9 | EXTERNAL | | | | | mmol/L | LAB | | + + + + + + | Cl | 105 | 99 - 109 mmol/L | EXTERNAL | | | | | | LAB | | + + + + + + | CO2 | 26 | 23 - 32 mmol/L | EXTERNAL | | | | | | LAB | | + + + + + + | Anion Gap | 12 | 5 - 20 mmol/L | EXTERNAL | | | | | | LAB | | + + + + + + | Glucose, | 115 (H) | 65 - 99 mg/dL | EXTERNAL | | | Fasting | | | LAB | | + + + + + + | BUN | 25 | 8 - 25 mg/dL | EXTERNAL | | | | | | LAB | | + + + + + + | Creatinine | 1.6 (H) | 0.70 - 1.30 | EXTERNAL | | | | | mg/dL | LAB | | + + + + + + | Calcium | 9.3 | 8.5 - 10.5 | EXTERNAL | | | | | mg/dL | LAB | | + + + + + + | Albumin | 3.7 | 3.3 - 4.8 g/dL | EXTERNAL | | | | | | LAB | | + + + + + + | PHOSPHORUS | 4.6 | 2.3 - 4.8 mg/dL | EXTERNAL | | | | | | LAB | | + + + + + + | Estimated | 44 (L)Comment: GFR <60: | mL/min/1.73m2 | EXTERNAL | | | GFR | CHRONIC KIDNEY DISEASE, | | LAB | | | | IF FOUND OVER A 3 MONTH | | | | | | PERIOD.GFR <15: KIDNEY | | | | | | FAILURE.FOR | | | | | | AMERICANS, MULTIPLY THE | | | | | | CALCULATED GFR BY | | | | | | 1.210.This eGFR is | | | | | | calculated using the | | | | | | MDRD IDMS traceable | | | | | | equation.Testing | | | | | | performed at [facility], [address] | | | | | | [facility], | | | | | | [place] [address] | | | | + + + + + + + + | Specimen | + + | | + + + +---------+ + + | Performing | Address | City/State/Zipcode | Phone Number | | Organization | | | | + +---------+ + + | EXTERNAL LAB | | | | + +---------+ + + POC Glucose (05/05/2018 9:03 PM PDT) + + + + + + | Component | Value | Ref Range | Performed | Pathologist | | | | | At | Signature | + + + + + + | Glucose, | 167 (H)Comment: Testing | 65 - 99 mg/dL | EXTERNAL | | | Fingerstick | performed at [facility];[address] | | LAB | | | | [address];[place] | | | | | | [address] | | | | + + + + + + + + | Specimen | + + | | + + + +---------+ + + | Performing | Address | City/State/Zipcode | Phone Number | | Organization | | | | + +---------+ + + | EXTERNAL LAB | | | | + +---------+ + + POC Glucose (05/05/2018 4:42 PM PDT) + + + + + + | Component | Value | Ref Range | Performed | Pathologist | | | | | At | Signature | + + + + + + | Glucose, | 102 (H)Comment: Testing | 65 - 99 mg/dL | EXTERNAL | | | Fingerstick | performed at [facility];[address] | | LAB | | | | [address];[place] | | | | | | [address] | | | | + + + + + + + + | Specimen | + + | | + + + +---------+ + + | Performing | Address | City/State/Zipcode | Phone Number | | Organization | | | | + +---------+ + + | EXTERNAL LAB | | | | + +---------+ + + POC Glucose (05/05/2018 11:27 AM PDT) + + + + + + | Component | Value | Ref Range | Performed | Pathologist | | | | | At | Signature | + + + + + + | Glucose, | 113 (H)Comment: Testing | 65 - 99 mg/dL | EXTERNAL | | | Fingerstick | performed at [facility];[address] | | LAB | | | | [address];[place], [place] | | | | | | [address] | | | | + + + + + + + + | Specimen | + + | | + + + +---------+ + + | Performing | Address | City/State/Zipcode | Phone Number | | Organization | | | | + +---------+ + + | EXTERNAL LAB | | | | + +---------+ + + Urinalysis with Microscopic if Indicated (05/05/2018 6:20 AM PDT) + + + + + + | Component | Value | Ref Range | Performed | Pathologist | | | | | At | Signature | + + + + + + | Color | YELLOW | | EXTERNAL | | | | | | LAB | | + + + + + + | Clarity | CLEAR | | EXTERNAL | | | | | | LAB | | + + + + + + | Specific | 1.011 | 1.002 - 1.030 | EXTERNAL | | | [place], | | | LAB | | | Urine | | | | | + + + + + + | Leukocyte | NEGATIVEComment: | | EXTERNAL | | | Esterase, | | | LAB | | | Urine | | | | | + + + + + + | Nitrite, | NEGATIVE | | EXTERNAL | | | Urine | | | LAB | | + + + + + + | Urobilinoge | NORMAL | mg/dL | EXTERNAL | | | n, Urine | | | LAB | | + + + + + + | Protein, | NEGATIVE | mg/dL | EXTERNAL | | | Urine | | | LAB | | + + + + + + | pH, Urine | 5.0 | 5.0 - 8.0 | EXTERNAL | | | | | | LAB | | + + + + + + | Blood, | NEGATIVE | | EXTERNAL | | | Urine | | | LAB | | + + + + + + | Ketones | NEGATIVE | mg/dL | EXTERNAL | | | | | | LAB | | + + + + + + | Bilirubin, | NEGATIVE | | EXTERNAL | | | Urine | | | LAB | | + + + + + + | Glucose, | NEGATIVEComment: Testing | mg/dL | EXTERNAL | | | Urine | performed at [facility], [address] | | LAB | | | | [address], | | | | | | [place] [address] | | | | + + + + + + + + | Specimen | + + | Urine specimen | | (specimen) | + + + +---------+ + + | Performing | Address | City/State/Zipcode | Phone Number | | Organization | | | | + +---------+ + + | EXTERNAL LAB | | | | + +---------+ + + POC Glucose (05/05/2018 5:03 AM PDT) + + + + + + | Component | Value | Ref Range | Performed | Pathologist | | | | | At | Signature | + + + + + + | Glucose, | 125 (H)Comment: Testing | 65 - 99 mg/dL | EXTERNAL | | | Fingerstick | performed at [facility];[address] | | LAB | | | | [address];[place] | | | | | | [address] | | | | + + + + + + + + | Specimen | + + | | + + + +---------+ + + | Performing | Address | City/State/Zipcode | Phone Number | | Organization | | | | + +---------+ + + | EXTERNAL LAB | | | | + +---------+ + + PTT (05/05/2018 4:17 AM PDT) + + + + + + | Component | Value | Ref Range | Performed | Pathologist | | | | | At | Signature | + + + + + + | aPTT, | 55 (H)Comment: Testing | 23 - 32 seconds | EXTERNAL | | | Patient | performed at [facility];[address] | | LAB | | | | [address];[place] | | | | | | [address] | | | | + + + + + + + + | Specimen | + + | Blood specimen | | (specimen) | + + + +---------+ + + | Performing | Address | City/State/Zipcode | Phone Number | | Organization | | | | + +---------+ + + | EXTERNAL LAB | | | | + +---------+ + + PTT (05/04/2018 10:15 PM PDT) + + + + + + | Component | Value | Ref Range | Performed | Pathologist | | | | | At | Signature | + + + + + + | aPTT, | 49 (H)Comment: Testing | 23 - 32 seconds | EXTERNAL | | | Patient | performed at [facility];[address] | | LAB | | | | [address];[place], [place] | | | | | | [address] | | | | + + + + + + + + | Specimen | + + | Blood specimen | | (specimen) | + + + +---------+ + + | Performing | Address | City/State/Zipcode | Phone Number | | Organization | | | | + +---------+ + + | EXTERNAL LAB | | | | + +---------+ + + POC Glucose (05/04/2018 9:14 PM PDT) + + + + + + | Component | Value | Ref Range | Performed | Pathologist | | | | | At | Signature | + + + + + + | Glucose, | 108 (H)Comment: Testing | 65 - 99 mg/dL | EXTERNAL | | | Fingerstick | performed at [facility];[address] | | LAB | | | | [address];[place], [place] | | | | | | [address] | | | | + + + + + + + + | Specimen | + + | | + + + +---------+ + + | Performing | Address | City/State/Zipcode | Phone Number | | Organization | | | | + +---------+ + + | EXTERNAL LAB | | | | + +---------+ + + POC Glucose (05/04/2018 4:33 PM PDT) + + + + + + | Component | Value | Ref Range | Performed | Pathologist | | | | | At | Signature | + + + + + + | Glucose, | 114 (H)Comment: Testing | 65 - 99 mg/dL | EXTERNAL | | | Fingerstick | performed at [facility];[address] | | LAB | | | | [address];[place], [place] | | | | | | [address] | | | | + + + + + + + + | Specimen | + + | | + + + +---------+ + + | Performing | Address | City/State/Zipcode | Phone Number | | Organization | | | | + +---------+ + + | EXTERNAL LAB | | | | + +---------+ + + PTT (05/04/2018 3:25 PM PDT) + + + + + + | Component | Value | Ref Range | Performed | Pathologist | | | | | At | Signature | + + + + + + | aPTT, | 39 (H)Comment: Testing | 23 - 32 seconds | EXTERNAL | | | Patient | performed at [facility];[address] | | LAB | | | | [address];[place], [place] | | | | | | [address] | | | | + + + + + + + + | Specimen | + + | Blood specimen | | (specimen) | + + + +---------+ + + | Performing | Address | City/State/Zipcode | Phone Number | | Organization | | | | + +---------+ + + | EXTERNAL LAB | | | | + +---------+ + + POC Glucose (05/04/2018 11:24 AM PDT) + + + + + + | Component | Value | Ref Range | Performed | Pathologist | | | | | At | Signature | + + + + + + | Glucose, | 120 (H)Comment: Testing | 65 - 99 mg/dL | EXTERNAL | | | Fingerstick | performed at [facility];[address] | | LAB | | | | [address];[place], [place] | | | | | | [address] | | | | + + + + + + + + | Specimen | + + | | + + + +---------+ + + | Performing | Address | City/State/Zipcode | Phone Number | | Organization | | | | + +---------+ + + | EXTERNAL LAB | | | | + +---------+ + + US Renal Limited (05/04/2018 11:05 AM PDT) + + | Specimen | + + | | + + + + + | Impressions | Performed At | + + + | 1. No shadowing renal stones or hydronephrosis. 2. Postvoid | | | bladder residual of 14 mL. | | + + + + + + | Narrative | Performed At | + + + | RON MCKEON 1955 US KIDNEYS AND BLADDER 05/04/2018 11:05 | | | AM HISTORY: Chronic kidney disease COMPARISON: None. | | | TECHNIQUE: Transabdominal ultrasound of the kidneys and bladder, | | | grayscale and color flow evaluation. FINDINGS: Evaluation of the | | | lower poles of the kidneys slightly restricted by bowel gas. The right | | | left kidneys measure 10.0 x 3.7 x 4.4 cm and 9.9 x 5.2 x 4.9 cm | | | respectively. No shadowing stone or hydronephrosis is demonstrated. | | | The bladder is incompletely distended measuring 80 mL prevoid. | | | Postvoid residual of 14 mL. Right ureteral jet was not visualized. | | + + + + + | Procedure Note | + + | Clayton Cortes Conversion - 04/20/2019 8:30 AM ROSE MCKEON1955US KIDNEYS AND | | BLADDER05/04/2018 11:05 AM HISTORY: Chronic kidney disease COMPARISON: None. TECHNIQUE: | | Transabdominal ultrasound of the kidneys and bladder, grayscale and color flow | | evaluation. FINDINGS: Evaluation of the lower poles of the kidneys slightly restricted | | by bowel gas. The right left kidneys measure 10.0 x 3.7 x 4.4 cm and 9.9 x 5.2 x 4.9 cm | | respectively. No shadowing stone or hydronephrosis is demonstrated. The bladder is | | incompletely distended measuring 80 mL prevoid. Postvoid residual of 14 mL. Right | | ureteral jet was not visualized. IMPRESSION: 1. No shadowing renal stones or | | hydronephrosis.2. Postvoid bladder residual of 14 mL. | | | |FINDINGS: Evaluation of the lower poles of the kidneys slightly restricted by bowel gas. Th e right left kidneys measure 10.0 x 3.7 x 4.4 cm and 9.9 x 5.2 x 4.9 cm respectively. No sha dowing stone or hydronephrosis is demonstrated. | | | |The bladder is incompletely distended measuring 80 mL prevoid. Postvoid residual of 14 mL. Right ureteral jet was not visualized. | | | |IMPRESSION: | |1. No shadowing renal stones or hydronephrosis. | |2. Postvoid bladder residual of 14 mL. | | | | | + + CT Chest wo Contrast (05/04/2018 9:02 AM PDT) + + | Specimen | + + | | + + + + + | Impressions | Performed At | + + + | 1. No pulmonary edema, infiltrates, or effusions. 2. | | | Centrilobular emphysematous change of the right greater than left | | | upper to midlung zone, with previous granulomatous disease. 3. | | | Minimal focal ectasia of the lateral aortic arch, with mild | | | atheromatous changes of the aorta and coronaries, again with coronary | | | arterial stents noted. | | + + + + + + | Narrative | Performed At | + + + | HISTORY: Pulmonary edema. Chest pain. Coronary artery disease. | | | Non-ST elevation myocardial infarction. COMPARISON: Coronary | | | arteriography 05/03/18. Myocardial perfusion study 05/02/18. | | | Echocardiography 05/01/18. Chest x-ray 05/01/18. TECHNIQUE: 5-mm | | | axial CT images were acquired using automated exposure control through | | | the chest. Oral Contrast: None IV contrast: None. FINDINGS: | | | Mild focal aortic ectasia along the lateral arch sequence 3 image 36 | | | measuring 2.2 cm AP by approximately 0.6 cm transverse (total | | | transverse aortic dimension 3 cm, compared with 2.5 cm of the adjacent | | | mid aortic arch). Normal caliber of the aorta otherwise noted, with | | | mid ascending aortic AP diameter of 3.3 cm. Mild aortic and | | | coronary arterial calcification. Proximal LAD and circumflex stenting | | | better defined on coronary arteriography. Perhaps mild left | | | ventricular dilatation, without further chamber dilatation. Sequential | | | AICD. Calcified granuloma in the medial right lung base and | | | anterior right upper lobe along the minor fissure strandy atelectasis | | | in the posterior lung bases. Centrilobular emphysematous change | | | greater in the right than left upper to midlung zone. No hilar or | | | mediastinal adenopathy. Scans through the upper abdomen show opaque | | | material in the stomach. Clips in the gallbladder fossa partially | | | included. Tiny hypodensities along the anterior and posterior dome of | | | the lateral left hepatic lobe both measuring 6 mm, too small to | | | characterize, likely representing small cysts or hemangiomata. | | | Bone windows show mild spondylotic changes of the spine. No | | | compression deformities. | | + + + + + | Procedure Note | + + | Clayton Cortes - 04/20/2019 8:30 AM PDT HISTORY:Pulmonary edema. Chest pain. | | Coronary artery disease. Non-ST elevation myocardial infarction. COMPARISON:Coronary | | arteriography 05/03/18. Myocardial perfusion study 05/02/18. Echocardiography 05/01/18. | | Chest x-ray 05/01/18. TECHNIQUE:5-mm axial CT images were acquired using automated | | exposure control through the chest.Oral Contrast: NoneIV contrast: None. FINDINGS:Mild | | focal aortic ectasia along the lateral arch sequence 3 image 36 measuring 2.2 cm AP by | | approximately 0.6 cm transverse (total transverse aortic dimension 3 cm, compared with | | 2.5 cm of the adjacent mid aortic arch). Normal caliber of the aorta otherwise noted, | | with mid ascending aortic AP diameter of 3.3 cm. Mild aortic and coronary arterial | | calcification. Proximal LAD and circumflex stenting better defined on coronary | | arteriography. Perhaps mild left ventricular dilatation, without further chamber | | dilatation. Sequential AICD. Calcified granuloma in the medial right lung base and | | anterior right upper lobe along the minor fissure strandy atelectasis in the posterior | | lung bases. Centrilobular emphysematous change greater in the right than left upper to | | midlung zone. No hilar or mediastinal adenopathy. Scans through the upper abdomen show | | opaque material in the stomach. Clips in the gallbladder fossa partially included. Tiny | | hypodensities along the anterior and posterior dome of the lateral left hepatic lobe | | both measuring 6 mm, too small to characterize, likely representing small cysts or | | hemangiomata. Bone windows show mild spondylotic changes of the spine. No compression | | deformities. IMPRESSION: 1. No pulmonary edema, infiltrates, or effusions.2. | | Centrilobular emphysematous change of the right greater than left upper to midlung zone, | | with previous granulomatous disease.3. Minimal focal ectasia of the lateral aortic | | arch, with mild atheromatous changes of the aorta and coronaries, again with coronary | | arterial stents noted. | |IMPRESSION: | |1. No pulmonary edema, infiltrates, or effusions. | |2. Centrilobular emphysematous change of the right greater than left upper to midlung zone , with previous granulomatous disease. | |3. Minimal focal ectasia of the lateral aortic arch, with mild atheromatous changes of the aorta and coronaries, again with coronary arterial stents noted. | | | | | + + CBC no Differential (05/04/2018 8:51 AM PDT) + + + + + + | Component | Value | Ref Range | Performed | Pathologist | | | | | At | Signature | + + + + + + | WBC | 7.79 | 3.80 - 11.00 | EXTERNAL | | | | | K/uL | LAB | | + + + + + + | Red Blood | 4.61 | 4.20 - 5.70 | EXTERNAL | | | Cells | | M/uL | LAB | | | Counted | | | | | + + + + + + | Hemoglobin | 14.4 | 13.2 - 17.0 | EXTERNAL | | | | | g/dL | LAB | | + + + + + + | Hematocrit, | 42.4 | 39.0 - 50.0 % | EXTERNAL | | | POC | | | LAB | | + + + + + + | MCV | 92.1 | 80.0 - 100.0 fl | EXTERNAL | | | | | | LAB | | + + + + + + | MCH | 31.2 | 27.0 - 34.0 pg | EXTERNAL | | | | | | LAB | | + + + + + + | MCHC | 33.9 | 32.0 - 35.5 | EXTERNAL | | | | | g/dL | LAB | | + + + + + + | RDW-CV | 46.4 | 37 - 53 fl | EXTERNAL | | | | | | LAB | | + + + + + + | Platelet | 161 | 150 - 400 K/uL | EXTERNAL | | | Count | | | LAB | | | Plasma | | | | | + + + + + + | MPV | 8.0Comment: Testing | fl | EXTERNAL | | | | performed at [facility];[address] | | LAB | | | | [address];[place] | | | | | | [address] | | | | + + + + + + + + | Specimen | + + | | + + + +---------+ + + | Performing | Address | City/State/Zipcode | Phone Number | | Organization | | | | + +---------+ + + | EXTERNAL LAB | | | | + +---------+ + + PTT (05/04/2018 8:51 AM PDT) + + + + + + | Component | Value | Ref Range | Performed | Pathologist | | | | | At | Signature | + + + + + + | aPTT, | 30Comment: Testing | 23 - 32 seconds | EXTERNAL | | | Patient | performed at [facility];[address] | | LAB | | | | [address];[place], [place] | | | | | | [address] | | | | + + + + + + + + | Specimen | + + | Blood specimen | | (specimen) | + + + +---------+ + + | Performing | Address | City/State/Zipcode | Phone Number | | Organization | | | | + +---------+ + + | EXTERNAL LAB | | | | + +---------+ + + Protime INR (05/04/2018 8:51 AM PDT) + + + + + + | Component | Value | Ref Range | Performed | Pathologist | | | | | At | Signature | + + + + + + | INR | 1.1Comment: REFERENCE | | EXTERNAL | | | | RANGE:0.9 - 1.2 | | LAB | | | | NON-ANTICOAGULATED2.0 | | | | | | - 3.0 ALL OTHER | | | | | | THERAPEUTIC | | | | | | INDICATIONS2.5 - 3.5 | | | | | | MECHANICAL HEART VALVES, | | | | | | RECURRENT OR SYSTEMIC | | | | | | EMBOLISMTesting | | | | | | performed at [facility] | | | | | | [facility];[place], [place] | | | | | | [address] | | | | + + + + + + + + | Specimen | + + | Blood specimen | | (specimen) | + + + +---------+ + + | Performing | Address | City/State/Zipcode | Phone Number | | Organization | | | | + +---------+ + + | EXTERNAL LAB | | | | + +---------+ + + POC Glucose (05/04/2018 5:05 AM PDT) + + + + + + | Component | Value | Ref Range | Performed | Pathologist | | | | | At | Signature | + + + + + + | Glucose, | 110 (H)Comment: Testing | 65 - 99 mg/dL | EXTERNAL | | | Fingerstick | performed at [facility];[address] | | LAB | | | | [address];[place] | | | | | | [address] | | | | + + + + + + + + | Specimen | + + | | + + + +---------+ + + | Performing | Address | City/State/Zipcode | Phone Number | | Organization | | | | + +---------+ + + | EXTERNAL LAB | | | | + +---------+ + + External Lab: CBC (05/04/2018 3:59 AM PDT) + + + + + + | Component | Value | Ref Range | Performed | Pathologist | | | | | At | Signature | + + + + + + | WBC | 6.52 | 3.80 - 11.00 | EXTERNAL | | | | | K/uL | LAB | | + + + + + + | Red Blood | 4.44 | 4.20 - 5.70 | EXTERNAL | | | Cells | | M/uL | LAB | | | Counted | | | | | + + + + + + | Hemoglobin | 13.9 | 13.2 - 17.0 | EXTERNAL | | | | | g/dL | LAB | | + + + + + + | Hematocrit, | 40.1 | 39.0 - 50.0 % | EXTERNAL | | | POC | | | LAB | | + + + + + + | MCV | 90.3 | 80.0 - 100.0 fl | EXTERNAL | | | | | | LAB | | + + + + + + | MCH | 31.3 | 27.0 - 34.0 pg | EXTERNAL | | | | | | LAB | | + + + + + + | MCHC | 34.6 | 32.0 - 35.5 | EXTERNAL | | | | | g/dL | LAB | | + + + + + + | RDW-CV | 45.5 | 37 - 53 fl | EXTERNAL | | | | | | LAB | | + + + + + + | Platelet | 140 (L) | 150 - 400 K/uL | EXTERNAL | | | Count | | | LAB | | | Plasma | | | | | + + + + + + | MPV | 9.0 | fl | EXTERNAL | | | | | | LAB | | + + + + + + | Differentia | AUTOMATED | | EXTERNAL | | | l Type | | | LAB | | + + + + + + | % Segmented | 73.12 | % | EXTERNAL | | | | | | LAB | | | Neutrophils | | | | | + + + + + + | % | 17.04 | % | EXTERNAL | | | Lymphocytes | | | LAB | | + + + + + + | % Monocytes | 8.35 | % | EXTERNAL | | | | | | LAB | | + + + + + + | % | 1.10 | % | EXTERNAL | | | Eosinophils | | | LAB | | + + + + + + | % Basophils | 0.39 | % | EXTERNAL | | | | | | LAB | | + + + + + + | Absolute | 4.77 | 1.90 - 7.40 | EXTERNAL | | | Segmented | | K/uL | LAB | | | Neutrophils | | | | | + + + + + + | Absolute | 1.11 | 1.00 - 3.90 | EXTERNAL | | | Lymphocytes | | K/uL | LAB | | + + + + + + | Absolute | 0.54 | 0.00 - 0.80 | EXTERNAL | | | Monocytes | | K/uL | LAB | | + + + + + + | Absolute | 0.07 | 0.00 - 0.50 | EXTERNAL | | | Eosinophils | | K/uL | LAB | | + + + + + + | Absolute | 0.03Comment: Testing | 0.00 - 0.10 | EXTERNAL | | | Basophils | performed at [facility], [address] | K/uL | LAB | | | | [address], | | | | | | [place] [address] | | | | + + + + + + + + | Specimen | + + | Blood specimen | | (specimen) | + + + +---------+ + + | Performing | Address | City/State/Zipcode | Phone Number | | Organization | | | | + +---------+ + + | EXTERNAL LAB | | | | + +---------+ + + Magnesium (05/04/2018 3:59 AM PDT) + + + + + + | Component | Value | Ref Range | Performed | Pathologist | | | | | At | Signature | + + + + + + | Magnesium | 2.4Comment: Testing | 1.7 - 2.4 mg/dL | EXTERNAL | | | | performed at [facility], [address] | | LAB | | | | [address], | | | | | | [place] [address] | | | | + + + + + + + + | Specimen | + + | Blood specimen | | (specimen) | + + + +---------+ + + | Performing | Address | City/State/Zipcode | Phone Number | | Organization | | | | + +---------+ + + | EXTERNAL LAB | | | | + +---------+ + + Renal Function Panel (05/04/2018 3:59 AM PDT) + + + + + + | Component | Value | Ref Range | Performed | Pathologist | | | | | At | Signature | + + + + + + | Na | 139 | 135 - 145 | EXTERNAL | | | | | mmol/L | LAB | | + + + + + + | K | 4.3 | 3.5 - 4.9 | EXTERNAL | | | | | mmol/L | LAB | | + + + + + + | Cl | 107 | 99 - 109 mmol/L | EXTERNAL | | | | | | LAB | | + + + + + + | CO2 | 22 (L) | 23 - 32 mmol/L | EXTERNAL | | | | | | LAB | | + + + + + + | Anion Gap | 14 | 5 - 20 mmol/L | EXTERNAL | | | | | | LAB | | + + + + + + | Glucose, | 114 (H) | 65 - 99 mg/dL | EXTERNAL | | | Fasting | | | LAB | | + + + + + + | BUN | 27 (H) | 8 - 25 mg/dL | EXTERNAL | | | | | | LAB | | + + + + + + | Creatinine | 1.5 (H) | 0.70 - 1.30 | EXTERNAL | | | | | mg/dL | LAB | | + + + + + + | Calcium | 8.9 | 8.5 - 10.5 | EXTERNAL | | | | | mg/dL | LAB | | + + + + + + | Albumin | 3.4 | 3.3 - 4.8 g/dL | EXTERNAL | | | | | | LAB | | + + + + + + | PHOSPHORUS | 5.1 (H) | 2.3 - 4.8 mg/dL | EXTERNAL | | | | | | LAB | | + + + + + + | Estimated | 47 (L)Comment: GFR <60: | mL/min/1.73m2 | EXTERNAL | | | GFR | CHRONIC KIDNEY DISEASE, | | LAB | | | | IF FOUND OVER A 3 MONTH | | | | | | PERIOD.GFR <15: KIDNEY | | | | | | FAILURE.FOR | | | | | | AMERICANS, MULTIPLY THE | | | | | | CALCULATED GFR BY | | | | | | 1.210.This eGFR is | | | | | | calculated using the | | | | | | MDRD IDMS traceable | | | | | | equation.Testing | | | | | | performed at [facility], [address] | | | | | | [address], | | | | | | [place], [place] [address] | | | | + + + + + + + + | Specimen | + + | | + + + +---------+ + + | Performing | Address | City/State/Zipcode | Phone Number | | Organization | | | | + +---------+ + + | EXTERNAL LAB | | | | + +---------+ + + POC Glucose (05/03/2018 9:07 PM PDT) + + + + + + | Component | Value | Ref Range | Performed | Pathologist | | | | | At | Signature | + + + + + + | Glucose, | 168 (H)Comment: Testing | 65 - 99 mg/dL | EXTERNAL | | | Fingerstick | performed at [facility];[address] | | LAB | | | | [address];[place], [place] | | | | | | [address] | | | | + + + + + + + + | Specimen | + + | | + + + +---------+ + + | Performing | Address | City/State/Zipcode | Phone Number | | Organization | | | | + +---------+ + + | EXTERNAL LAB | | | | + +---------+ + + POC Glucose (05/03/2018 4:45 PM PDT) + + + + + + | Component | Value | Ref Range | Performed | Pathologist | | | | | At | Signature | + + + + + + | Glucose, | 119 (H)Comment: Testing | 65 - 99 mg/dL | EXTERNAL | | | Fingerstick | performed at [facility];[address] | | LAB | | | [address];[place], [place] | | | | | | [address] | | | | + + + + + + + + | Specimen | + + | | + + + +---------+ + + | Performing | Address | City/State/Zipcode | Phone Number | | Organization | | | | + +---------+ + + | EXTERNAL LAB | | | | + +---------+ + + CV CARDIAC PROCEDURE (05/03/2018 1:10 PM PDT) + + | Specimen | + + | | + + + + + | Impressions | Performed At | + + + | In-stent restenosis in the distal left main and left anterior | | | descending, left circumflex area. As this area was stented with | | | drug-eluting stents right at a year ago, it would not seem the best | | | approach would be to restent it, so I think I am going to have cardiac | | | surgery see about revascularization options. Read by DEISY HANSEN MD 05/03/2018 12:51 P | | + + + + + + | Narrative | Performed At | + + + | | | | | | | DATE OF PROCEDURE: 05/03/2018 PROCEDURE: Left heart | | | catheterization and coronary angiography. ESTIMATED BLOOD LOSS: | | | * * * RESULTS: Aortic pressure 93/60, with a mean of 46. | | | Left ventricular was not entered in an effort to save contrast. | | | ARTERIOGRAPHY: The left main coronary artery is previously stented. | | | At the distal left main, there is restenosis involving the takeoff | | | of both LAD and left circumflex. The left circumflex branch has a | | | 95-99% restenosis. The left anterior descending is more difficult to | | | evaluate for exactly how tight it is, but there is what is probably | | | pannus formation inside the LAD that is partially occluding. The | | | right coronary artery has minor, nonobstructive disease and is a | | | large, dominant artery. | | + + + + + | Procedure Note | + + | Sebastian Clayton Conversion - 04/27/2019 3:50 PM PDT | | | | | | DATE OF PROCEDURE: 05/03/2018 | | | | PROCEDURE: Left heart catheterization and coronary angiography. | | | | ESTIMATED BLOOD LOSS: * * * | | | | RESULTS: Aortic pressure 93/60, with a mean of 46. Left ventricular was | | not entered in an effort to save contrast. | | | | ARTERIOGRAPHY: The left main coronary artery is previously stented. At | | the distal left main, there is restenosis involving the takeoff of both LAD | | and left circumflex. The left circumflex branch has a 95-99% restenosis. | | The left anterior descending is more difficult to evaluate for exactly how | | tight it is, but there is what is probably pannus formation inside the LAD | | that is partially occluding. The right coronary artery has minor, | | nonobstructive disease and is a large, dominant artery. | | | | IMPRESSION: | | In-stent restenosis in the distal left main and left anterior | | descending, left circumflex area. As this area was stented with | | drug-eluting stents right at a year ago, it would not seem the best | | approach would be to restent it, so I think I am going to have cardiac | | surgery see about revascularization options. | | | | Read by DEISY HANSEN MD 05/03/2018 12:51 P | | | | | + + External Lab: CBC (05/03/2018 5:12 AM PDT) + + + + + + | Component | Value | Ref Range | Performed | Pathologist | | | | | At | Signature | + + + + + + | WBC | 6.33 | 3.80 - 11.00 | EXTERNAL | | | | | K/uL | LAB | | + + + + + + | Red Blood | 4.29 | 4.20 - 5.70 | EXTERNAL | | | Cells | | M/uL | LAB | | | Counted | | | | | + + + + + + | Hemoglobin | 13.3 | 13.2 - 17.0 | EXTERNAL | | | | | g/dL | LAB | | + + + + + + | Hematocrit, | 38.9 (L) | 39.0 - 50.0 % | EXTERNAL | | | POC | | | LAB | | + + + + + + | MCV | 90.8 | 80.0 - 100.0 fl | EXTERNAL | | | | | | LAB | | + + + + + + | MCH | 31.1 | 27.0 - 34.0 pg | EXTERNAL | | | | | | LAB | | + + + + + + | MCHC | 34.2 | 32.0 - 35.5 | EXTERNAL | | | | | g/dL | LAB | | + + + + + + | RDW-CV | 45.9 | 37 - 53 fl | EXTERNAL | | | | | | LAB | | + + + + + + | Platelet | 142 (L) | 150 - 400 K/uL | EXTERNAL | | | Count | | | LAB | | | Plasma | | | | | + + + + + + | MPV | 9.0 | fl | EXTERNAL | | | | | | LAB | | + + + + + + | Differentia | AUTOMATED | | EXTERNAL | | | l Type | | | LAB | | + + + + + + | % Segmented | 67.96 | % | EXTERNAL | | | | | | LAB | | | Neutrophils | | | | | + + + + + + | % | 21.29 | % | EXTERNAL | | | Lymphocytes | | | LAB | | + + + + + + | % Monocytes | 9.12 | % | EXTERNAL | | | | | | LAB | | + + + + + + | % | 1.44 | % | EXTERNAL | | | Eosinophils | | | LAB | | + + + + + + | % Basophils | 0.19 | % | EXTERNAL | | | | | | LAB | | + + + + + + | Absolute | 4.30 | 1.90 - 7.40 | EXTERNAL | | | Segmented | | K/uL | LAB | | | Neutrophils | | | | | + + + + + + | Absolute | 1.35 | 1.00 - 3.90 | EXTERNAL | | | Lymphocytes | | K/uL | LAB | | + + + + + + | Absolute | 0.58 | 0.00 - 0.80 | EXTERNAL | | | Monocytes | | K/uL | LAB | | + + + + + + | Absolute | 0.09 | 0.00 - 0.50 | EXTERNAL | | | Eosinophils | | K/uL | LAB | | + + + + + + | Absolute | 0.01Comment: Testing | 0.00 - 0.10 | EXTERNAL | | | Basophils | performed at [facility], [address] | K/[address] | LAB | | | | [address], | | | | | | [place] [address] | | | | + + + + + + + + | Specimen | + + | Blood specimen | | (specimen) | + + + +---------+ + + | Performing | Address | City/State/Zipcode | Phone Number | | Organization | | | | + +---------+ + + | EXTERNAL LAB | | | | + +---------+ + + B Type Natriuretic Peptide (05/03/2018 5:12 AM PDT) + + + + + + | Component | Value | Ref Range | Performed | Pathologist | | | | | At | Signature | + + + + + + | BNP | 230 (H)Comment: Testing | 0 - 100 pg/mL | EXTERNAL | | | | performed at [facility] | | LAB | | | | [address];[place] | | | | | | [address] | | | | + + + + + + + + | Specimen | + + | Blood specimen | | (specimen) | + + + +---------+ + + | Performing | Address | City/State/Zipcode | Phone Number | | Organization | | | | + +---------+ + + | EXTERNAL LAB | | | | + +---------+ + + Comprehensive Metabolic Panel (05/03/2018 5:12 AM PDT) + + + + + + | Component | Value | Ref Range | Performed | Pathologist | | | | | At | Signature | + + + + + + | Na | 143 | 135 - 145 | EXTERNAL | | | | | mmol/L | LAB | | + + + + + + | K | 4.4 | 3.5 - 4.9 | EXTERNAL | | | | | mmol/L | LAB | | + + + + + + | Cl | 110 (H) | 99 - 109 mmol/L | EXTERNAL | | | | | | LAB | | + + + + + + | CO2 | 24 | 23 - 32 mmol/L | EXTERNAL | | | | | | LAB | | + + + + + + | Anion Gap | 13 | 5 - 20 mmol/L | EXTERNAL | | | | | | LAB | | + + + + + + | Glucose, | 106 (H) | 65 - 99 mg/dL | EXTERNAL | | | Fasting | | | LAB | | + + + + + + | BUN | 29 (H) | 8 - 25 mg/dL | EXTERNAL | | | | | | LAB | | + + + + + + | Creatinine | 1.4 (H) | 0.70 - 1.30 | EXTERNAL | | | | | mg/dL | LAB | | + + + + + + | BUN/Creatin | 21 | | EXTERNAL | | | ine Ratio | | | LAB | | + + + + + + | Calcium | 8.8 | 8.5 - 10.5 | EXTERNAL | | | | | mg/dL | LAB | | + + + + + + | Protein, | 7.0 | 6.3 - 8.2 g/dL | EXTERNAL | | | Total | | | LAB | | + + + + + + | Albumin | 3.4 | 3.3 - 4.8 g/dL | EXTERNAL | | | | | | LAB | | + + + + + + | Globulin | 3.6 | 1.3 - 4.9 g/dL | EXTERNAL | | | | | | LAB | | + + + + + + | A/G Ratio | 0.9 (L) | 1.0 - 2.4 | EXTERNAL | | | | | | LAB | | + + + + + + | Bilirubin | 0.4 | 0.1 - 1.5 mg/dL | EXTERNAL | | | Total | | | LAB | | + + + + + + | ALP, | 90 | 35 - 115 U/L | EXTERNAL | | | External | | | LAB | | + + + + + + | AST | 22 | 10 - 45 U/L | EXTERNAL | | | | | | LAB | | + + + + + + | ALT | 30 | 10 - 65 U/L | EXTERNAL | | | | | | LAB | | + + + + + + | Estimated | 51 (L)Comment: GFR <60: | mL/min/1.73m2 | EXTERNAL | | | GFR | CHRONIC KIDNEY DISEASE, | | LAB | | | | IF FOUND OVER A 3 MONTH | | | | | | PERIOD.GFR <15: KIDNEY | | | | | | FAILURE.FOR | | | | | | AMERICANS, MULTIPLY THE | | | | | | CALCULATED GFR BY | | | | | | 1.210.This eGFR is | | | | | | calculated using the | | | | | | MDRD IDLA traceable | | | | | | equation.Testing | | | | | | performed at [facility], [address] | | | | | | [facility], | | | | | | [place] [address] | | | | + + + + + + + + | Specimen | + + | Blood specimen | | (specimen) | + + + +---------+ + + | Performing | Address | City/State/Zipcode | Phone Number | | Organization | | | | + +---------+ + + | EXTERNAL LAB | | | | + +---------+ + + NM Myocardial Perfusion Mult SPECT (05/02/2018 11:01 AM PDT) + + | Specimen | + + | | + + + + + | Impressions | Performed At | + + + | 1. Decreased uptake on stress and rest of the anterior wall, | | | septum and apex consistent with infarct. Dilation of the left | | | ventricular cavity consistent with ischemic cardiomyopathy. (High | | | risk) 2. Left ventricular ejection fraction is calculated at 18%. | | | Risk stratification according to the [employer] [employer] | | | and [employer] Scientific Statement. Circulation | | | (2008); 118: p 1497-518. Definitions: Low risk: 1. Normal or | | | small myocardial perfusion defect at rest or with stress.* 2. No | | | change of resting wall motion abnormalities during stress.* | | | Intermediate risk: 1. Mild/moderate resting left ventricular | | | dysfunction (LVEF = 35% to 49%). 2. Stress-induced moderate perfusion | | | defect without left ventricular dilation or increased lung intake. | | | High risk: 1. Severe resting left ventricular dysfunction (exercise | | | LVEF < 35%). 2. Severe exercise left ventricular dysfunction | | | (exercise LVEF < 35%). 3. Stress-induced large perfusion defect | | | (particularly if anterior). 4. Stress-induced multiple perfusion | | | defects of moderate size. 5. Large, fixed perfusion defect with left | | | ventricular dilation. 6. Stress-induced moderate perfusion defect | | | with LV dilation. * Although the published data are limited, | | | patients with these findings will probably not be at low risk in the | | | presence of either a high risk treadmill score or severe resting left | | | ventricular dysfunction (LVEF < 35%). | | + + + + + + | Narrative | Performed At | + + + | RON MCKEON ID MYOCARDIAL PERFUSION SPECT - STRESS AND REST | | | HISTORY: 62 years. Male. Chest pain TECHNIQUE: A same day | | | protocol was used. For the resting portion of the study the patient | | | was injected intravenously with 11.3 mCi technetium 99m Myoview. | | | Gated SPECT imaging was performed in the supine position. The | | | patient was then pharmacologically stressed using a regadenoson | | | protocol. The patient received 0.4 mg of regadenoson intravenously. | | | The patient was intravenously administered 30 mCi technetium 99m | | | Myoview. Gated SPECT images were acquired in the prone and supine | | | positions. COMPARISON: None. FINDINGS: Decreased uptake of | | | the myocardium at the distal anterior wall, septum and apex on stress | | | and rest consistent with infarction. Dilated left ventricular cavity | | | consistent with ischemic cardiomyopathy. Apparent decreased uptake on | | | the stress as compared to the rest images at the lateral wall | | | improves on the prone images. The following functional data was | | | obtained: STRESS: End-diastolic volume: 290 mL End-systolic volume: | | | 237 mL Ejection fraction: 18% REST: End-diastolic volume: 278 mL | | | End-systolic volume: 233 mL Ejection fraction: 16% | | + + + + + | Procedure Note | + + | Clayton Cortes Conversion - 04/20/2019 8:30 AM PDT RON COLLAZOKATARINA MYOCARDIAL PERFUSION | | SPECT - STRESS AND REST HISTORY:62 years. Male. Chest pain TECHNIQUE:A same day | | protocol was used. For the resting portion of the study the patient was injected | | intravenously with 11.3 mCi technetium 99m Myoview. Gated SPECT imaging was performed | | in the supine position. The patient was then pharmacologically stressed using a | | regadenoson protocol. The patient received 0.4 mg of regadenoson intravenously. The | | patient was intravenously administered 30 mCi technetium 99m Myoview. Gated SPECT images | | were acquired in the prone and supine positions. COMPARISON:None. FINDINGS:Decreased | | uptake of the myocardium at the distal anterior wall, septum and apex on stress and rest | | consistent with infarction. Dilated left ventricular cavity consistent with ischemic | | cardiomyopathy. Apparent decreased uptake on the stress as compared to the rest images | | at the lateral wall improves on the prone images. The following functional data was | | obtained:STRESS:End-diastolic volume: 290 mLEnd-systolic volume: 237 mLEjection | | fraction: 18%REST:End-diastolic volume: 278 mLEnd-systolic volume: 233 mLEjection | | fraction: 16% IMPRESSION: 1. Decreased uptake on stress and rest of the anterior wall, | | septum and apex consistent with infarct. Dilation of the left ventricular cavity | | consistent with ischemic cardiomyopathy. (High risk)2. Left ventricular ejection | | fraction is calculated at 18%. Risk stratification according to the [employer] [employer] | | Association and [employer] Scientific Statement. Circulation (2008); | | 118: p 1497-518. Definitions:Low risk:1. Normal or small myocardial perfusion defect at | | rest or with stress.*2. No change of resting wall motion abnormalities during stress.* | | Intermediate risk:1. Mild/moderate resting left ventricular dysfunction (LVEF = 35% to | | 49%).2. Stress-induced moderate perfusion defect without left ventricular dilation or | | increased lung intake. High risk:1. Severe resting left ventricular dysfunction | | (exercise LVEF < 35%).2. Severe exercise left ventricular dysfunction (exercise LVEF < | | 35%).3. Stress-induced large perfusion defect (particularly if anterior).4. | | Stress-induced multiple perfusion defects of moderate size.5. Large, fixed perfusion | | defect with left ventricular dilation.6. Stress-induced moderate perfusion defect with | | LV dilation. * Although the published data are limited, patients with these findings | | will probably not be at low risk in the presence of either a high risk treadmill score | | or severe resting left ventricular dysfunction (LVEF < 35%). | |1. Decreased uptake on stress and rest of the anterior wall, septum and apex consistent wi th infarct. Dilation of the left ventricular cavity consistent with ischemic cardiomyopathy. (High risk) | |2. Left ventricular ejection fraction is calculated at 18%. | | | | | |Risk stratification according to the [employer] [employer] and [employer] Scientific Statement. Circulation (2008); 118: p [phone]. | | | |Definitions: | |Low risk: | |1. Normal or small myocardial perfusion defect at rest or with stress.* | |2. No change of resting wall motion abnormalities during stress.* | | | |Intermediate risk: | |1. Mild/moderate resting left ventricular dysfunction (LVEF = 35% to 49%). | |2. Stress-induced moderate perfusion defect without left ventricular dilation or increased lung intake. | | | |High risk: | |1. Severe resting left ventricular dysfunction (exercise LVEF < 35%). | |2. Severe exercise left ventricular dysfunction (exercise LVEF < 35%). | |3. Stress-induced large perfusion defect (particularly if anterior). | |4. Stress-induced multiple perfusion defects of moderate size. | |5. Large, fixed perfusion defect with left ventricular dilation. | |6. Stress-induced moderate perfusion defect with LV dilation. | | | |* Although the published data are limited, patients with these findings will probably not b e at low risk in the presence of either a high risk treadmill score or severe resting left v entricular dysfunction (LVEF < 35%). | | | | | + + External Lab: CBC (05/02/2018 4:37 AM PDT) + + + + + + | Component | Value | Ref Range | Performed | Pathologist | | | | | At | Signature | + + + + + + | WBC | 6.84 | 3.80 - 11.00 | EXTERNAL | | | | | K/uL | LAB | | + + + + + + | Red Blood | 4.44 | 4.20 - 5.70 | EXTERNAL | | | Cells | | M/uL | LAB | | | Counted | | | | | + + + + + + | Hemoglobin | 13.9 | 13.2 - 17.0 | EXTERNAL | | | | | g/dL | LAB | | + + + + + + | Hematocrit, | 40.3 | 39.0 - 50.0 % | EXTERNAL | | | POC | | | LAB | | + + + + + + | MCV | 90.9 | 80.0 - 100.0 fl | EXTERNAL | | | | | | LAB | | + + + + + + | MCH | 31.4 | 27.0 - 34.0 pg | EXTERNAL | | | | | | LAB | | + + + + + + | MCHC | 34.5 | 32.0 - 35.5 | EXTERNAL | | | | | g/dL | LAB | | + + + + + + | RDW-CV | 45.9 | 37 - 53 fl | EXTERNAL | | | | | | LAB | | + + + + + + | Platelet | 137 (L) | 150 - 400 K/uL | EXTERNAL | | | Count | | | LAB | | | Plasma | | | | | + + + + + + | MPV | 8.8 | fl | EXTERNAL | | | | | | LAB | | + + + + + + | Differentia | AUTOMATED | | EXTERNAL | | | l Type | | | LAB | | + + + + + + | % Segmented | 66.73 | % | EXTERNAL | | | | | | LAB | | | Neutrophils | | | | | + + + + + + | % | 23.06 | % | EXTERNAL | | | Lymphocytes | | | LAB | | + + + + + + | % Monocytes | 8.20 | % | EXTERNAL | | | | | | LAB | | + + + + + + | % | 1.63 | % | EXTERNAL | | | Eosinophils | | | LAB | | + + + + + + | % Basophils | 0.38 | % | EXTERNAL | | | | | | LAB | | + + + + + + | Absolute | 4.56 | 1.90 - 7.40 | EXTERNAL | | | Segmented | | K/uL | LAB | | | Neutrophils | | | | | + + + + + + | Absolute | 1.58 | 1.00 - 3.90 | EXTERNAL | | | Lymphocytes | | K/uL | LAB | | + + + + + + | Absolute | 0.56 | 0.00 - 0.80 | EXTERNAL | | | Monocytes | | K/uL | LAB | | + + + + + + | Absolute | 0.11 | 0.00 - 0.50 | EXTERNAL | | | Eosinophils | | K/uL | LAB | | + + + + + + | Absolute | 0.03Comment: Testing | 0.00 - 0.10 | EXTERNAL | | | Basophils | performed at [facility], [address] | [address] | LAB | | | | [address], | | | | | | [place] [address] | | | | + + + + + + + + | Specimen | + + | Blood specimen | | (specimen) | + + + +---------+ + + | Performing | Address | City/State/Zipcode | Phone Number | | Organization | | | | + +---------+ + + | EXTERNAL LAB | | | | + +---------+ + + TSH (05/02/2018 4:37 AM PDT) + + + + + + | Component | Value | Ref Range | Performed | Pathologist | | | | | At | Signature | + + + + + + | TSH | 1.130Comment: Testing | 0.450 - 5.100 | EXTERNAL | | | | performed at [facility], [address] | uIU/mL | LAB | | | | [address], | | | | | | [place] [address] | | | | + + + + + + + + | Specimen | + + | Blood specimen | | (specimen) | + + + +---------+ + + | Performing | Address | City/State/Zipcode | Phone Number | | Organization | | | | + +---------+ + + | EXTERNAL LAB | | | | + +---------+ + + Phosphorus (05/02/2018 4:37 AM PDT) + + + + + + | Component | Value | Ref Range | Performed | Pathologist | | | | | At | Signature | + + + + + + | PHOSPHORUS | 3.4Comment: Testing | 2.3 - 4.8 mg/dL | EXTERNAL | | | | performed at [facility], [address] | | LAB | | | | [address], | | | | | | [place] [address] | | | | + + + + + + + + | Specimen | + + | Blood specimen | | (specimen) | + + + +---------+ + + | Performing | Address | City/State/Zipcode | Phone Number | | Organization | | | | + +---------+ + + | EXTERNAL LAB | | | | + +---------+ + + B Type Natriuretic Peptide (05/02/2018 4:37 AM PDT) + + + + + + | Component | Value | Ref Range | Performed | Pathologist | | | | | At | Signature | + + + + + + | BNP | 246 (H)Comment: Testing | 0 - 100 pg/mL | EXTERNAL | | | | performed at [facility];[address] | LAB | | | | [address];[place], [place] | | | | | | [address] | | | | + + + + + + + + | Specimen | + + | Blood specimen | | (specimen) | + + + +---------+ + + | Performing | Address | City/State/Zipcode | Phone Number | | Organization | | | | + +---------+ + + | EXTERNAL LAB | | | | + +---------+ + + Magnesium (05/02/2018 4:37 AM PDT) + + + + + + | Component | Value | Ref Range | Performed | Pathologist | | | | | At | Signature | + + + + + + | Magnesium | 2.5 (H)Comment: Testing | 1.7 - 2.4 mg/dL | EXTERNAL | | | | performed at [facility], [address] | | LAB | | | | [address], | | | | | | [place] [address] | | | | + + + + + + + + | Specimen | + + | Blood specimen | | (specimen) | + + + +---------+ + + | Performing | Address | City/State/Zipcode | Phone Number | | Organization | | | | + +---------+ + + | EXTERNAL LAB | | | | + +---------+ + + Basic Metabolic Panel (05/02/2018 4:37 AM PDT) + + + + + + | Component | Value | Ref Range | Performed | Pathologist | | | | | At | Signature | + + + + + + | Na | 142 | 135 - 145 | EXTERNAL | | | | | mmol/L | LAB | | + + + + + + | K | 4.1 | 3.5 - 4.9 | EXTERNAL | | | | | mmol/L | LAB | | + + + + + + | Cl | 107 | 99 - 109 mmol/L | EXTERNAL | | | | | | LAB | | + + + + + + | CO2 | 24 | 23 - 32 mmol/L | EXTERNAL | | | | | | LAB | | + + + + + + | Anion Gap | 15 | 5 - 20 mmol/L | EXTERNAL | | | | | | LAB | | + + + + + + | Glucose, | 120 (H) | 65 - 99 mg/dL | EXTERNAL | | | Fasting | | | LAB | | + + + + + + | BUN | 29 (H) | 8 - 25 mg/dL | EXTERNAL | | | | | | LAB | | + + + + + + | Creatinine | 1.6 (H) | 0.70 - 1.30 | EXTERNAL | | | | | mg/dL | LAB | | + + + + + + | BUN/Creatin | 18 | | EXTERNAL | | | ine Ratio | | | LAB | | + + + + + + | Calcium | 9.0 | 8.5 - 10.5 | EXTERNAL | | | | | mg/dL | LAB | | + + + + + + | Estimated | 44 (L)Comment: GFR <60: | mL/min/1.73m2 | EXTERNAL | | | GFR | CHRONIC KIDNEY DISEASE, | | LAB | | | | IF FOUND OVER A 3 MONTH | | | | | | PERIOD.GFR <15: KIDNEY | | | | | | FAILURE.FOR | | | | | | AMERICANS, MULTIPLY THE | | | | | | CALCULATED GFR BY | | | | | | 1.210.This eGFR is | | | | | | calculated using the | | | | | | MDRD IDMS traceable | | | | | | equation.Testing | | | | | | performed at [facility], [address] | | | | | | [address] [facility], | | | | | | [place] [address] | | | | + + + + + + + + | Specimen | + + | Blood specimen | | (specimen) | + + + +---------+ + + | Performing | Address | City/State/Zipcode | Phone Number | | Organization | | | | + +---------+ + + | EXTERNAL LAB | | | | + +---------+ + + XR Chest 1 Vw (05/01/2018 6:21 PM PDT) + + | Specimen | + + | | + + + + + | Narrative | Performed At | + + + | This is a non-reportable procedure without a radiologist report and | | | is used for image storage only | | + + + + + | Procedure Note | + + | Sebastian, Clayton Conversion - 04/20/2019 8:30 AM PDT This is a non-reportable procedure | | without a radiologist report and isused for image storage only | + + Troponin I (05/01/2018 6:05 PM PDT) + + + + + + | Component | Value | Ref Range | Performed | Pathologist | | | | | At | Signature | + + + + + + | Troponin I, | 0.664 ()Comment: | 0.00 - 0.10 | EXTERNAL | | | Qual | 0.00 to 0.10 | ng/mL | LAB | | | | CONSISTENT WITH NORMAL | | | | | | POPULATION0.11 to 0.60 | | | | | | CONSISTENT WITH | | | | | | INCREASED RISK FOR | | | | | | ADVERSE OUTCOMES> 0.60 | | | | | | CONSISTENT | | | | | | WITH WHO CRITERIA FOR | | | | | | ACUTE NC CALLED NURSING | | | | | | UNITREAD BACK RESULTS | | | | | | VERIFIEDCALLED TO DEBO | | | | | | IN [facility] AT [address] BY | | | | | | LGJTesting performed at | | | | | | [facility];[address];[place] [address] | | | | + + + + + + + + | Specimen | + + | Blood specimen | | (specimen) | + + + +---------+ + + | Performing | Address | City/State/Zipcode | Phone Number | | Organization | | | | + +---------+ + + | EXTERNAL LAB | | | | + +---------+ + + ECHO Complete w Contrast (05/01/2018 3:03 PM PDT) + + | Specimen | + + | | + + + + + | Impressions | Performed At | + + + | 1. Overall left ventricular systolic function is severely impaired | | | with, an EF between 25 - 30 %. 2. apex - akinetic; | | + + + + + + | Narrative | Performed At | + + + | Patient Name: RON MCKEON Date of : 1955 | | | Performing Physician: Deisy Hansen | | | MD | | | ------REPORT ADDENDED------ INDICATIONS SOB | | | CONCLUSIONS 1. Overall left ventricular systolic | | | function is severely impaired with, an EF between 25 - 30 %. 2. apex | | | - akinetic; FINDINGS -------- ECG rhythm: Sinus rhythm. Study: | | | A 2-dimensional transthoracic echocardiogram with m-mode, spectral and | | | color flow Doppler was perfomed. Left Ventricle: Overall left | | | ventricular systolic function is severely impaired with, an EF between | | | 25 - 30 %. Left Ventricle: The left ventricle cavity size is normal. | | | Left Ventricle: Left ventricular wall thickness is normal. Left | | | Ventricle: The diastolic filling pattern indicates impaired relaxation | | | consistent with mild dysfunction (Grade I). Severe hypokinesis of | | | all lipscomb with perserved function to the anterolateral wall and the | | | anterior wall. Left Ventricle: apex - akinetic; Right Ventricle: | | | Pacer/ICD wire seen. Right Atrium: Pacemaker wire seen in the right | | | atrial cavity. Aortic Valve: The aortic valve was not well | | | visualized. Aortic Valve: There is no evidence of aortic | | | regurgitation. Aortic Valve: There is no evidence of aortic stenosis. | | | Mitral Valve: The mitral valve is normal. Mitral Valve: Mild mitral | | | regurgitation is present. Tricuspid Valve: The tricuspid valve | | | appears structurally normal. Tricuspid Valve: Trace tricuspid | | | regurgitation present. Tricuspid Valve: Pulmonary artery systolic | | | pressure could not be assessed due to the absence of adequate TR jet. | | | Pulmonic Valve: The pulmonic valve was not well visualized. | | | Pericardium: There is no pericardial effusion. IVC/Hepatic Veins: The | | | IVC is normal size (1.5-2.5cm) and collapses >50% with sniff, | | | consistent with central venous pressures of 5-10mmHg. Aorta: | | | Atherosclerotic changes noted in abdominal aorta. Mass: No mass | | | visualized Thrombus: No clot visualized Septum: No ASD observed. | | | Septum: No VSD observed. MEASUREMENTS RA Area: | | | 14.70 cm2 Ao asc: 2.83 cm IVC: 1.98 cm EDV(Teich): 149.69 | | | ml IVSd: 1.02 cm LVIDd: 5.53 cm LVPWd: 1.01 cm LVOT Diam: | | | 1.98 cm %FS: 13.14 % EF(Teich): 27.86 % ESV(Teich): | | | 107.98 ml IVSs: 0.96 cm LVIDs: 4.80 cm LVPWs: 1.32 cm | | | SV(Teich): 41.70 ml LVEF MOD A2C: 27.63 % SV MOD A2C: 57.13 | | | ml LVEF MOD A4C: 24.64 % SV MOD A4C: 58.14 ml EF Biplane: | | | 24.47 % LVEDV MOD BP: 222.41 ml LVESV MOD BP: 167.97 ml | | | LVEDV MOD A2C: 206.76 ml LVLd A2C: 9.81 cm LVEDV MOD A4C: | | | 235.89 ml LVLd A4C: 9.62 cm LVESV MOD A2C: 149.62 ml LVLs | | | A2C: 9.72 cm LVESV MOD A4C: 177.75 ml LVLs A4C: 9.09 cm | | | LAESV(A-L): 77.87 ml LAESV Index (A-L): 36.55 ml/m2 LAAs A2C: | | | 24.13 cm2 LAESV A-L A2C: 87.75 ml LALs A2C: 5.63 cm LAAs | | | A4C: 20.35 cm2 LAESV A-L A4C: 65.67 ml LALs A4C: 5.35 cm | | | Ao Diam: 3.38 cm LA Diam: 4.41 cm LA/Ao: 1.30 TAPSE: | | | 1.84 cm HR: 77.85 BPM AV maxP.75 mmHg AV meanP.02 | | | mmHg AV Vmax: 1.09 m/s AV Vmean: 0.83 m/s AV VTI: 19.10 cm | | | MABEL Vmax: 2.61 cm2 MABEL (VTI): 2.73 cm2 AVAI Vmax: 0.00 | | | cm2/m2 AVAI (VTI): 0.00 cm2/m2 LVCI Dopp: 1.86 l/minm2 LVCO | | | Dopp: 3.97 l/min HR: 76.15 BPM LVOT maxP.39 mmHg LVOT | | | meanP.27 mmHg LVSI Dopp: 24.51 ml/m2 LVSV Dopp: 52.21 | | | ml LVOT Vmax: 0.92 m/s LVOT Vmean: 0.72 m/s LVOT VTI: | | | 16.87 cm MV A Hasmukh: 0.97 m/s MV DecT: 194.63 ms MV E Hasmukh: | | | 0.49 m/s MV E/A Ratio: 0.50 E/E' Av.49 E' Av.06 | | | m/s E/E' Lat: 5.58 E/E' Sept: 11.41 E' Lat: 0.08 m/s E' | | | Sept: 0.04 m/s PV maxP.13 mmHg PV Vmax: 1.01 m/s RV | | | S': 0.09 m/s TV A Hasmukh: 0.64 m/s TV Dec Stanton: 2.15 m/s2 TV | | | Dec Time: 236.16 ms TV E Hasmukh: 0.50 m/s TV E/A Ratio: 0.78 | | | Account Manager Relief: JUNI Authenticated by: Deisy Hansen MD Report | | | Date/Time: 05-03-2018 12:44:37 | | + + + + -------+ | Procedure Note | + -------+ | Sebastian, Rad Conversion - 04/20/2019 8:30 AM PDT Patient Name: Belkys MCKEON | | of : 1955 Performing Physician: Deisy Hansen | | MD ------REPORT | | ADDENDED------INDICATIONS SOB CONCLUSIONS 1. Overall left | | ventricular systolic function is severely impaired with, an EF between 25 - 30 %.2. apex | | - akinetic; FINDINGS--------ECG rhythm: Sinus rhythm.Study: A 2-dimensional | | transthoracic echocardiogram with m-mode, spectral and color flow Doppler was | | perfomed.Left Ventricle: Overall left ventricular systolic function is severely impaired | | with, an EF between 25 - 30 %.Left Ventricle: The left ventricle cavity size is | | normal.Left Ventricle: Left ventricular wall thickness is normal.Left Ventricle: The | | diastolic filling pattern indicates impaired relaxation consistent with mild dysfunction | | (Grade I). Severe hypokinesis of all lipscomb with perserved function to the | | anterolateral wall and the anterior wall.Left Ventricle: apex - akinetic;Right | | Ventricle: Pacer/ICD wire seen.Right Atrium: Pacemaker wire seen in the right atrial | | cavity.Aortic Valve: The aortic valve was not well visualized.Aortic Valve: There is no | | evidence of aortic regurgitation.Aortic Valve: There is no evidence of aortic | | stenosis.Mitral Valve: The mitral valve is normal.Mitral Valve: Mild mitral | | regurgitation is present.Tricuspid Valve: The tricuspid valve appears structurally | | normal.Tricuspid Valve: Trace tricuspid regurgitation present.Tricuspid Valve: Pulmonary | | artery systolic pressure could not be assessed due to the absence of adequate TR | | jet.Pulmonic Valve: The pulmonic valve was not well visualized.Pericardium: There is no | | pericardial effusion.IVC/Hepatic Veins: The IVC is normal size (1.5-2.5cm) and collapses | | >50% with sniff, consistent with central venous pressures of 5-10mmHg.Aorta: | | Atherosclerotic changes noted in abdominal aorta.Mass: No mass visualizedThrombus: No | | clot visualizedSeptum: No ASD observed.Septum: No VSD observed. | | MEASUREMENTS RA Area: 14.70 cm2Ao asc: 2.83 cmIVC: 1.98 cmEDV(Teich): | | 149.69 mlIVSd: 1.02 cmLVIDd: 5.53 cmLVPWd: 1.01 cmLVOT Diam: 1.98 cm%FS: | | 13.14 %EF(Teich): 27.86 %ESV(Teich): 107.98 mlIVSs: 0.96 cmLVIDs: 4.80 cmLVPWs: | | 1.32 cmSV(Teich): 41.70 mlLVEF MOD A2C: 27.63 %SV MOD A2C: 57.13 mlLVEF MOD A4C: | | 24.64 %SV MOD A4C: 58.14 mlEF Biplane: 24.47 %LVEDV MOD BP: 222.41 mlLVESV MOD | | BP: 167.97 mlLVEDV MOD A2C: 206.76 mlLVLd A2C: 9.81 cmLVEDV MOD A4C: 235.89 | | mlLVLd A4C: 9.62 cmLVESV MOD A2C: 149.62 mlLVLs A2C: 9.72 cmLVESV MOD A4C: | | 177.75 mlLVLs A4C: 9.09 cmLAESV(A-L): 77.87 mlLAESV Index (A-L): 36.55 ml/m2LAAs | | A2C: 24.13 [id number] A-L A2C: 87.75 mlLALs A2C: 5.63 cmLAAs A4C: 20.35 [id number] | | A-L A4C: 65.67 mlLALs A4C: 5.35 cmAo Diam: 3.38 cmLA Diam: 4.41 cmLA/Ao: | | 1.30TAPSE: 1.84 cmHR: 77.85 BPMAV maxP.75 mmHgAV meanP.02 mmHgAV Vmax: | | 1.09 m/Emil Vmean: 0.83 m/Emil VTI: 19.10 cmAVA Vmax: 2.61 cm2AVA (VTI): 2.73 | | du0FPQP Vmax: 0.00 cm2/m2AVAI (VTI): 0.00 cm2/m2LVCI Dopp: 1.86 l/llod7VPEY Dopp: | | 3.97 l/minHR: 76.15 BPMLVOT maxP.39 mmHgLVOT meanP.27 mmHgLVSI Dopp: | | 24.51 ml/m2LVSV Dopp: 52.21 mlLVOT Vmax: 0.92 m/sLVOT Vmean: 0.72 m/sLVOT VTI: | | 16.87 cmMV A Hasmukh: 0.97 m/sMV DecT: 194.63 msMV E Hasmukh: 0.49 m/sMV E/A Ratio: | | 0.50E/E' Av.49E' Av.06 m/sE/E' Lat: 5.58E/E' Sept: 11.41E' Lat: 0.08 | | m/sE' Sept: 0.04 m/sPV maxP.13 mmHgPV Vmax: 1.01 m/sRV S': 0.09 m/sTV A Hasmukh: | | 0.64 m/sTV Dec Stanton: 2.15 m/s2TV Dec Time: 236.16 msTV E Hasmukh: 0.50 m/sTV E/A | | Ratio: 0.78 Account Manager Relief: Ritaticated by: Deisy Hansen MDReport Date/Time: | | 05-03-2018 12:44:37 IMPRESSION: 1. Overall left ventricular systolic function is severely | | impaired with, an EF between 25 - 30 %.2. apex - akinetic; | |MEASUREMENTS | | | |RA Area: 14.70 cm2 | |Ao asc: 2.83 cm | |IVC: 1.98 cm | |EDV(Teich): 149.69 ml | |IVSd: 1.02 cm | |LVIDd: 5.53 cm | |LVPWd: 1.01 cm | |LVOT Diam: 1.98 cm | |%FS: 13.14 % | |EF(Teich): 27.86 % | |ESV(Teich): 107.98 ml | |IVSs: 0.96 cm | |LVIDs: 4.80 cm | |LVPWs: 1.32 cm | |SV(Teich): 41.70 ml | |LVEF MOD A2C: 27.63 % | |SV MOD A2C: 57.13 ml | |LVEF MOD A4C: 24.64 % | |SV MOD A4C: 58.14 ml | |EF Biplane: 24.47 % | |LVEDV MOD BP: 222.41 ml | |LVESV MOD BP: 167.97 ml | |LVEDV MOD A2C: 206.76 ml | |LVLd A2C: 9.81 cm | |LVEDV MOD A4C: 235.89 ml | |LVLd A4C: 9.62 cm | |LVESV MOD A2C: 149.62 ml | |LVLs A2C: 9.72 cm | |LVESV MOD A4C: 177.75 ml | |LVLs A4C: 9.09 cm | |LAESV(A-L): 77.87 ml | |LAESV Index (A-L): 36.55 ml/m2 | |LAAs A2C: 24.13 cm2 | |LAESV A-L A2C: 87.75 ml | |LALs A2C: 5.63 cm | |LAAs A4C: 20.35 cm2 | |LAESV A-L A4C: 65.67 ml | |LALs A4C: 5.35 cm | |Ao Diam: 3.38 cm | |LA Diam: 4.41 cm | |LA/Ao: 1.30 | |TAPSE: 1.84 cm | |HR: 77.85 BPM | |AV maxP.75 mmHg | |AV meanP.02 mmHg | |AV Vmax: 1.09 m/s | |AV Vmean: 0.83 m/s | |AV VTI: 19.10 cm | |MABEL Vmax: 2.61 cm2 | |MABEL (VTI): 2.73 cm2 | |AVAI Vmax: 0.00 cm2/m2 | |AVAI (VTI): 0.00 cm2/m2 | |LVCI Dopp: 1.86 l/minm2 | |LVCO Dopp: 3.97 l/min | |HR: 76.15 BPM | |LVOT maxP.39 mmHg | |LVOT meanP.27 mmHg | |LVSI Dopp: 24.51 ml/m2 | |LVSV Dopp: 52.21 ml | |LVOT Vmax: 0.92 m/s | |LVOT Vmean: 0.72 m/s | |LVOT VTI: 16.87 cm | |MV A Hasmukh: 0.97 m/s | |MV DecT: 194.63 ms | |MV E Hasmukh: 0.49 m/s | |MV E/A Ratio: 0.50 | |E/E' Av.49 | |E' Av.06 m/s | |E/E' Lat: 5.58 | |E/E' Sept: 11.41 | |E' Lat: 0.08 m/s | |E' Sept: 0.04 m/s | |PV maxP.13 mmHg | |PV Vmax: 1.01 m/s | |RV S': 0.09 m/s | |TV A Hasmukh: 0.64 m/s | |TV Dec Stanton: 2.15 m/s2 | |TV Dec Time: 236.16 ms | |TV E Hasmukh: 0.50 m/s | |TV E/A Ratio: 0.78 | | | |Account Manager Relief: JUNI | |Authenticated by: Deisy Hansen MD | |Report Date/Time: 05-03-2018 12:44:37 | | | |IMPRESSION: | |1. Overall left ventricular systolic function is severely impaired with, an EF between 25 - 30 %. | |2. apex - akinetic; | + -------+ Troponin I (05/01/2018 11:41 AM PDT) + + + + + + | Component | Value | Ref Range | Performed | Pathologist | | | | | At | Signature | + + + + + + | Troponin I, | 0.678 ()Comment: | 0.00 - 0.10 | EXTERNAL | | | Qual | 0.00 to 0.10 | ng/mL | LAB | | | | CONSISTENT WITH NORMAL | | | | | | POPULATION0.11 to 0.60 | | | | | | CONSISTENT WITH | | | | | | INCREASED RISK FOR | | | | | | ADVERSE OUTCOMES> 0.60 | | | | | | CONSISTENT | | | | | | WITH WHO CRITERIA FOR | | | | | | ACUTE NC CALLED NURSING | | | | | | INOCENCIATERESA J/4 RP @ 1231 | | | | | | BY BURTREAD BACK RESULTS | | | | | | VERIFIEDTesting | | | | | | performed at [facility] | | | | | | [facility];[place], [place] | | | | | | [address] | | | | + + + + + + + + | Specimen | + + | Blood specimen | | (specimen) | + + + +---------+ + + | Performing | Address | City/State/Zipcode | Phone Number | | Organization | | | | + +---------+ + + | EXTERNAL LAB | | | | + +---------+ + + XR Chest 2 Vws (05/01/2018 9:07 AM PDT) + + | Specimen | + + | | + + + + + | Impressions | Performed At | + + + | Left midlung platelike atelectasis. Lungs are otherwise clear. | | | | | + + + + + + | Narrative | Performed At | + + + | RON MCKEON 1955 62 years Male XR CHEST 2 VIEW FRONTAL | | | AND LATERAL 05/01/2018 9:07 AM INDICATION: Shortness of breath | | | COMPARISON: None. TECHNIQUE: Two view chest, PA and lateral views | | | FINDINGS: Left pacemaker/ICD with intact leads. Left | | | midlung mild platelike atelectasis. The lungs are otherwise clear. No | | | pneumothorax, no pleural effusion. Heart size and mediastinal | | | contours are normal. No acute osseous abnormality. | | + + + + + | Procedure Note | + + | Sebastian, Rad Conversion - 04/20/2019 8:30 AM PDT RON COLLAZOOBERTS2[id number] years | | MaleXR CHEST 2 VIEW FRONTAL AND LATERAL05/01/2018 9:07 AM INDICATION: Shortness of breath | | COMPARISON: None. TECHNIQUE: Two view chest, PA and lateral views FINDINGS: Left | | pacemaker/ICD with intact leads. Left midlung mild platelike atelectasis. The lungs are | | otherwise clear. No pneumothorax, no pleural effusion. Heart size and mediastinal | | contours are normal. No acute osseous abnormality. IMPRESSION: Left midlung platelike | | atelectasis. Lungs are otherwise clear. Electronically signed by Shlomo Leavitt MD on | | 05/01/2018 9:20 AM | |COMPARISON: None. | | | |TECHNIQUE: Two view chest, PA and lateral views | | | |FINDINGS: | | | |Left pacemaker/ICD with intact leads. | | | |Left midlung mild platelike atelectasis. The lungs are otherwise clear. No pneumothorax, no pleural effusion. | | | |Heart size and mediastinal contours are normal. | | | |No acute osseous abnormality. | | | |IMPRESSION: | | | |Left midlung platelike atelectasis. Lungs are otherwise clear. | | | | | + + HISTORICAL LAB PANEL RESULT (05/01/2018 8:15 AM PDT) + + + + + -+ | Component | Value | Ref Range | Performed | Pathologist | | | | | At | Signature | + + + + + -+ | WBC | 7.26 | 3.80 - 11.00 | EXTERNAL | | | | | K/uL | LAB | | + + + + + -+ | Red Blood | 4.43 | 4.20 - 5.70 | EXTERNAL | | | Cells | | M/uL | LAB | | | Counted | | | | | + + + + + -+ | Hemoglobin | 13.8 | 13.2 - 17.0 | EXTERNAL | | | | | g/dL | LAB | | + + + + + -+ | Hematocrit, | 40.2 | 39.0 - 50.0 % | EXTERNAL | | | POC | | | LAB | | + + + + + -+ | MCV | 90.8 | 80.0 - 100.0 fl | EXTERNAL | | | | | | LAB | | + + + + + -+ | MCH | 31.2 | 27.0 - 34.0 pg | EXTERNAL | | | | | | LAB | | + + + + + -+ | MCHC | 34.4 | 32.0 - 35.5 | EXTERNAL | | | | | g/dL | LAB | | + + + + + -+ | RDW-CV | 45.5 | 37 - 53 fl | EXTERNAL | | | | | | LAB | | + + + + + -+ | Platelet | 156 | 150 - 400 K/uL | EXTERNAL | | | Count | | | LAB | | | Plasma | | | | | + + + + + -+ | MPV | 8.9 | fl | EXTERNAL | | | | | | LAB | | + + + + + -+ | Differentia | AUTOMATED | | EXTERNAL | | | l Type | | | LAB | | + + + + + -+ | % Segmented | 73.43 | % | EXTERNAL | | | | | | LAB | | | Neutrophils | | | | | + + + + + -+ | % | 17.50 | % | EXTERNAL | | | Lymphocytes | | | LAB | | + + + + + -+ | % Monocytes | 7.76 | % | EXTERNAL | | | | | | LAB | | + + + + + -+ | % | 0.85 | % | EXTERNAL | | | Eosinophils | | | LAB | | + + + + + -+ | % Basophils | 0.46 | % | EXTERNAL | | | | | | LAB | | + + + + + -+ | Absolute | 5.33 | 1.90 - 7.40 | EXTERNAL | | | Segmented | | K/uL | LAB | | | Neutrophils | | | | | + + + + + -+ | Absolute | 1.27 | 1.00 - 3.90 | EXTERNAL | | | Lymphocytes | | K/uL | LAB | | + + + + + -+ | Absolute | 0.56 | 0.00 - 0.80 | EXTERNAL | | | Monocytes | | K/uL | LAB | | + + + + + -+ | Absolute | 0.06 | 0.00 - 0.50 | EXTERNAL | | | Eosinophils | | K/uL | LAB | | + + + + + -+ | Absolute | 0.03 | 0.00 - 0.10 | EXTERNAL | | | Basophils | | K/uL | LAB | | + + + + + -+ | Na | 140 | 135 - 145 | EXTERNAL | | | | | mmol/L | LAB | | + + + + + -+ | K | 4.5 | 3.5 - 4.9 | EXTERNAL | | | | | mmol/L | LAB | | + + + + + -+ | Cl | 107 | 99 - 109 mmol/L | EXTERNAL | | | | | | LAB | | + + + + + -+ | CO2 | 24 | 23 - 32 mmol/L | EXTERNAL | | | | | | LAB | | + + + + + -+ | Anion Gap | 13 | 5 - 20 mmol/L | EXTERNAL | | | | | | LAB | | + + + + + -+ | Glucose, | 121 (H) | 65 - 99 mg/dL | EXTERNAL | | | Fasting | | | LAB | | + + + + + -+ | BUN | 27 (H) | 8 - 25 mg/dL | EXTERNAL | | | | | | LAB | | + + + + + -+ | Creatinine | 1.8 (H) | 0.70 - 1.30 | EXTERNAL | | | | | mg/dL | LAB | | + + + + + -+ | BUN/Creatin | 15 | | EXTERNAL | | | ine Ratio | | | LAB | | + + + + + -+ | Calcium | 8.2 (L) | 8.5 - 10.5 | EXTERNAL | | | | | mg/dL | LAB | | + + + + + -+ | Protein, | 7.2 | 6.3 - 8.2 g/dL | EXTERNAL | | | Total | | | LAB | | + + + + + -+ | Albumin | 3.4 | 3.3 - 4.8 g/dL | EXTERNAL | | | | | | LAB | | + + + + + -+ | Globulin | 3.9 | 1.3 - 4.9 g/dL | EXTERNAL | | | | | | LAB | | + + + + + -+ | A/G Ratio | 0.9 (L) | 1.0 - 2.4 | EXTERNAL | | | | | | LAB | | + + + + + -+ | Bilirubin | 0.4 | 0.1 - 1.5 mg/dL | EXTERNAL | | | Total | | | LAB | | + + + + + -+ | ALP, | 103 | 35 - 115 U/L | EXTERNAL | | | External | | | LAB | | + + + + + -+ | AST | 13 | 10 - 45 U/L | EXTERNAL | | | | | | LAB | | + + + + + -+ | ALT | 20 | 10 - 65 U/L | EXTERNAL | | | | | | LAB | | + + + + + -+ | Estimated | 38 (L)Comment: GFR <60: | mL/min/1.73m2 | EXTERNAL | | | GFR | CHRONIC KIDNEY DISEASE, | | LAB | | | | IF FOUND OVER A 3 MONTH | | | | | | PERIOD.GFR <15: KIDNEY | | | | | | FAILURE.FOR | | | | | | AMERICANS, MULTIPLY THE | | | | | | CALCULATED GFR BY | | | | | | 1.210.This eGFR is | | | | | | calculated using the | | | | | | MDRD IDMS traceable | | | | | | equation. | | | | + + + + + -+ | CK, Total | 67 | 55 - 400 U/L | EXTERNAL | | | | | | LAB | | + + + + + -+ | INR | 1.0Comment: REFERENCE | | EXTERNAL | | | | RANGE:0.9 - 1.2 | | LAB | | | | NON-ANTICOAGULATED2.0 | | | | | | - 3.0 ALL OTHER | | | | | | THERAPEUTIC | | | | | | INDICATIONS2.5 - 3.5 | | | | | | MECHANICAL HEART VALVES, | | | | | | RECURRENT OR SYSTEMIC | | | | | | EMBOLISM | | | | + + + + + -+ | aPTT, | 32 | 23 - 32 seconds | EXTERNAL | | | Patient | | | LAB | | + + + + + -+ | CK-MB | 2.6 | 0.5 - 3.6 ng/mL | EXTERNAL | | | | | | LAB | | + + + + + -+ | CK-MB Index | 3.9Comment: CK INDEX | | EXTERNAL | | | | INTERPRETATION: | | LAB | | | | MMB ng/mL | | | | | | | | | | | |CK INDEX INTERPRETATION: | | | | | | MMB ng/mL | | | | | | | | | | + + + + + -+ + + | Specimen | + + | | + + + +---------+ + + | Performing | Address | City/State/Zipcode | Phone Number | | Organization | | | | + +---------+ + + | EXTERNAL LAB | | | | + +---------+ + + Troponin I (05/01/2018 8:15 AM PDT) + + + + + + | Component | Value | Ref Range | Performed | Pathologist | | | | | At | Signature | + + + + + + | Troponin I, | 0.613 ()Comment: | 0.00 - 0.10 | EXTERNAL | | | Qual | 0.00 to 0.10 | ng/mL | LAB | | | | CONSISTENT WITH NORMAL | | | | | | POPULATION0.11 to 0.60 | | | | | | CONSISTENT WITH | | | | | | INCREASED RISK FOR | | | | | | ADVERSE OUTCOMES> 0.60 | | | | | | CONSISTENT | | | | | | WITH WHO CRITERIA FOR | | | | | | ACUTE NC CALLED NURSING | | | | | | UNITHIMMEL/ED @ 0911 BY | | | | | | Takeacoder BACK RESULTS | | | | | | VERIFIEDTesting | | | | | | performed at [facility];[address] | | | | | [address];[place], [place] | | | | | | [address] | | | | + + + + + + + + | Specimen | + + | Blood specimen | | (specimen) | + + + +---------+ + + | Performing | Address | City/State/Zipcode | Phone Number | | Organization | | | | + +---------+ + + | EXTERNAL LAB | | | | + +---------+ + + B Type Natriuretic Peptide (05/01/2018 8:15 AM PDT) + + + + + + | Component | Value | Ref Range | Performed | Pathologist | | | | | At | Signature | + + + + + + | BNP | 412 (H)Comment: Testing | 0 - 100 pg/mL | EXTERNAL | | | | performed at [facility];[address] | | LAB | | | | [address];[place], [place] | | | | | | [address] | | | | + + + + + + + + | Specimen | + + | Blood specimen | | (specimen) | + + + +---------+ + + | Performing | Address | City/State/Zipcode | Phone Number | | Organization | | | | + +---------+ + + | EXTERNAL LAB | | | | + +---------+ + + ECG 12 lead (05/01/2018 8:00 AM PDT) + + + + + + | Component | Value | Ref Range | Performed | Pathologist | | | | | At | Signature | + + + + + + | DIAGNOSIS: | Normal sinus | | EXTERNAL | | | | rhythmNon-specific | | LAB | | | | intra-ventricular | | | | | | conduction blockLateral | | | | | | infarct , age | | | | | | undeterminedAbnormal | | | | | | ECGNo previous ECGs | | | | | | availableThis ECG | | | | | | contains Unconfirmed | | | | | | Interpretation | | | | | | Statements. See ED | | | | | | Record for Physician | | | | | | Interpretation. | | | | | | Confirmed by MUSE READ | | | | | | ONLY, -COMPUTER ([id number]), | | | | | | map editor Tiny Brambila | | | | | | ([id number]) on 05/02/2018 | | | | | | 3:19:13 AM | | | | + + + + + + + + | Specimen | + + | | + + + + + | Narrative | Performed At | + + + | Historically converted procedure from [employer] Epic environment | EXTERNAL LAB | + + + + +---------+ + + | Performing | Address | City/State/Zipcode | Phone Number | | Organization | | | | + +---------+ + + | EXTERNAL LAB | | | | + +---------+ + + documented in this encounter Visit Diagnoses + + | Diagnosis | + + | Acute pulmonary edema (HCC) Acute edema of lung, unspecified | + + | Chest pain, unspecified type | + + | NSTEMI (non-ST elevated myocardial infarction) (HCC) Acute myocardial infarction, | | subendocardial infarction, episode of care unspecified | + + | Diagnosis unknown Other unknown and unspecified cause of morbidity or mortality | + + documented in this encounter
--- OUTSIDE RECORDS SUMMARY | ~2020-03-04 | XMS | Encounter Summary ---
Demographics + + + | Address | [address] | | | [place] [address] | + + + | Home Phone [...] [place] | | | | | [address] | | + + + + + Care Team Providers + +------+ + | Care Reinforcing Bar Setter Name | Role | Phone | + [...] | | involving | [address] | [place] | | | | | [place] | [address] | [place], [place] | | | | | coronary | [address] | [address] | | | | | artery of | Phone: | Phone: | | | | | [place] heart | [phone] | [phone] | | | | | without | Fax: | Fax: | | | | | angina | [phone] | [phone] | | | | | pectoris | | | +--------+ + + + + + Encounter Details +--------+---------+ + + + | Date | Type | Department | Care Team | Description | +--------+---------+ + + + | 08/05/ | Office | [facility] | Randy Figueroa, | Coronary artery | | 2018 | Visit | [facility] | MD [address] | disease, angina | | | | REH[facility] [address] [place], | presence | | | | [address] [place] | [place] [address] | unspecified, | | | | [place] [address] | [phone] | unspecified vessel | | | | [phone] | | or lesion type, | | | | | | unspecified whether | | | | | | [place] or | | | | | | [...] Gael Woo - 08/05/2018 10:00 AM PST [facility] [address] [place] [address] Cardiac Rehab Date: 08/05/2018 Patient Information Patient Name: Bob Will Date of : 1955 Age: 62 y.o. Encounter Diagnoses Code Name Primary? I25.10 Coronary artery disease, angina presence unspecified, unspecified vessel or lesi on type, unspecified whether [place] or transplanted heart Yes Z98.61 Post PTCA [...] [place] | | | | | | [address] | | | | | | | | +--------+ + + + + | 04/16/ | Office | Cardiology | Alin Anderson | | | 2019 | Visit | | MD Cheryl Arreguin | | | | | | [address] | | | | | | [place] [address] | | | | | | [phone] | | | | | | | [...] [place] | | | | | | [address] | | | | | | | | +--------+ + + + + + + +--------+ + + | Name | Type | Priori | Associated Diagnoses | Order Schedule | | | | ty | | | + + +--------+ + + | [facility] Cardiac Rehab | Outpatient | Routin | Coronary artery | Ordered: 05/21/2018 | | | Referral | e | disease involving | | | | | | [place] coronary | | | | | | artery of [place] | | | | | | heart without angina | | | | | | pectoris | | + + +--------+ + + documented as of this encounter Visit Diagnoses + + | Diagnosis | + + | Coronary artery disease, angina presence unspecified, unspecified vessel or lesion | | type, unspecified whether [place] or transplanted heart - Primary | + + | Post PTCA Postsurgical percutaneous transluminal coronary angioplasty status | + + documented in this encounter"
--- OUTSIDE RECORDS SUMMARY | ~2020-03-04 | XMS | Encounter Summary ---
Demographics + + + | Address | [address] | | | [place] [address] | + + + | Home Phone [...] [place], [place] | | | | | [address] | | + + + + + Care Team Providers + +------+ + | Care Dispatcher Service Or Work Name | Role | Phone | + +------+ + | Chato Matson MD | PCP | | + +------+ + Reason for Visit + +--------+ + | Reason | Onset | Comments | | | Date | | + +--------+ + | Medication Refill | 06/14/ | | | | 2018 | | + +--------+ + Encounter Details +--------+--------+ + + + | Date | Type | Department | Care Team | Description | +--------+--------+ + + + | 06/14/ | Refill | [facility] [place] | Jenny, | Medication Refill | | 2017 | | CARDIOLOGY [address] | ADARSH [address] | | | | | [place], | [place], | | | | | [place] [address] | [place] [address] | | | | | [phone] | [phone] | | | | | | | [...] Telephone Encounter - Suzanne Cheng RN - 06/14/2018 11:00 AM PDTReceived message on voicemail from patient's . Spoke with patient, will check prescriptions at pharmacy .... ......................................Suzanne Cheng RN on 06/14/18 at 11:02 documented in thi s encounter Plan of Treatment +--------+ + + + + | Date | Type | Specialty | Care Team | Description | +--------+ + + + + | 03/12/ | Office | [facility] Visit | | [address] | | | | | | [address] [facility] | | | | | | [address] [place] | | | | | | [address] | | | | | | | | +--------+ + + + + | 04/16/ | Office | Cardiology | Alin Anderson | | 2019 | Visit | | MD [address] | | | | | | [address] | | | | | | [place] [address] | | | | | | [phone] | | | | | | | [...] [place] | | | | | | [address] | | | | | | | | +--------+ + + + + documented as of this encounter Visit Diagnoses Not on filedocumented in this encounter"
--- OUTSIDE RECORDS SUMMARY | ~2020-03-04 | XMS | Encounter Summary ---
Demographics + + + | Address | [address] | | | [place] [address] | + + + | Home Phone [...] + + + | Author | [facility] | + + + | Organization | [facility] | + + + | Address | Unknown | + + + | Phone | Unavailable | + + + Support + + + + + | Name | Relationship | Address | Phone | + + + + + | Venice Mckeon | ECON | [address] | | | | | [place] [address] | | + + + + + Care Team Providers + +------+ + | Care Telegraph Office Telephone Clerk Name | Role | Phone | [...] | | | | | | [facility] | Center | | | | | | for [facility] | [place], [place] | | | | | | and Healing, | [address] | | | | | | Building 1, | Phone: | | | | | | 8th Floor | [phone] | | | | | | [place], [place] | Fax: | | | | | | [address] | [phone] | | | | | | Phone: | | | | | | | [phone] | | | | | | | Fax: | | | | | | | [phone] | | +--------+--------+ + + + + [...] | | | | | syndrome | [address] | [address] | | | | | Degeneration | [address] | [place], [place] | | | | | of cervical | [place], | [address] | | | | | | [place] [address] | Phone: | | | | | intervertebr | Phone: | [phone] | | | | | al disc | [phone] | Fax: | | | | | chronic | Fax: | [phone] | | | | | spine pain | [phone] | | | | | | cervical [...] 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 You will greatly increase your [facility] es of success if you take medicine [...] a smoking cessation program, such as the [facility] on's [place] from Smoking program. Set a quit date. [...] in several forms, many of them available aunz-ocv-bxcfeci: Nicotine patches Nicotine gum and lozenges Nicotine [...] Smoking: After Your Visit", log into your [employer] account at [email or web address]. You can enter Y522 in the [employer]" search box. Not on [employer]? Review the [employer] section of your After Visit Summary for directions on ho w to sign up. 3780-5965 [employer]. Care instructions adapted under license by [facility] [place]. This care instruction is for use with your licensed healthcar e professional. If you have questions about a medical condition or this instruction, always ask your healthcare professional. [employer] disclaims any warranty or liabili ty for your use of this information. Content Version: 9.3.38410; Last Revised: March 26, 2011 Information about [...] your doctor have elected to try a [place] [facility] solution, the nerve to the facet j [...] treat pain of longstanding duration. [facility] Izvedblhpqdtyp signed by Sapna Dutta MD at 02/19/2012 11:42 AM PDT documented in this encounter Progress Notes Sapna Dutta MD - 02/19/2012 10:50 AM PDT [facility] Office Visit Date: 02/19/2012 Mr. Mckeon was referred for Spine Center evaluation by Yesi Guerrero MD [facility] [address] [place] [address]. Reason for consult: Chief Complaint: Chief Complaint [...] offered surgery. 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 He lives with h is of 7 years, and they get along well. 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 He does not feel that he has had effective therapy for this problem. . He is here to "just get rid of the pain." Mr. 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 He was in [...] by mouth two times daily. MULTIVITAMIN WITH SMQ-JL-DWIUYDEM-GINKGO 400 MCG-300 MCG-120 MG TAB Take by [...] : 1955 Age: 56 Sex: M Acct: [id number] Loc: MRI Exam Date: 11/05/2011 Status: REG REF Radiology No: Unit No: [id number] EXAM# TYPE/EXAM RESULT CPT CODE [id number] MRI/CERVICAL SPINE W/O CONTRAST [id number] EXAM: MRI CERVICAL SPINE, Nov 05, 2011 01:04:00 PM. CLINICAL HISTORY: Chronic neck and left arm pain. COMPARISON: Cervical spine MRI from [facility] on 02/14/2010. TECHNIQUE: T1 and T2 [...] Mr. Mckeon cannot come to [facility] for treatment on any kind of [...] branch denerva tion option SAPNA DUTTA MD [facility] [place] [facility] documented in this encounter Plan [...] | 1955 Age: 56 Sex: M Acct: [id number] Loc: MRI Exam Date: | | | 11/05/2011 Status: REG REF Radiology No: Unit No: [id number] | | | EXAM# TYPE/EXAM RESULT CPT CODE [id number] MRI/CERVICAL SPINE W/O | | | CONTRAST [id number] EXAM: MRI CERVICAL SPINE, Nov 05, 2011 01:04:00 | | | PM. CLINICAL HISTORY: Chronic neck and left arm pain. | | | COMPARISON: Cervical spine MRI from [facility] on | | | 02/14/2010. TECHNIQUE: [...]
--- OUTSIDE RECORDS SUMMARY | ~2020-03-04 | XMS | Encounter Summary ---
Demographics + + + | Address | [address] | | | [place] [address] | + + + | Home Phone | | + + + | Preferred Language | Unknown | + + + | Marital Status | | + + + | Uatsdin Affiliation | Unknown | + + + | Race | Unknown | + + + | Ethnic Group | Unknown | + + + Author + + + | Author | [facility] | | | and [place] | + + + | Organization | [facility] | | | and [place] | + + + | Address | Unknown | + + + | Phone | Unavailable | + + + Support + + + + + | Name | Relationship | Address | Phone | + + + + + | Venice Will | ECON | [place] | | | | | [address] | | + + + + + Care Team Providers + +------+ + | Care Data Recovery Planner Name | Role | Phone | + [...] | | | heart | [place], | [place] | | | | | failure | [place] [address] | [place] | | | | | (HCC) | Phone: | [address] | | | | | I50.22 | [phone] | Phone: | | | | | Procedures | Fax: | [phone] | | | | | Cardiac | [phone] | Fax: | | | | | Rehab | | [phone] | +--------+--------+ + + + + Encounter Details +--------+---------+ + + + | Date | Type | Department | Care Team | Description | +--------+---------+ + + + | 07/14/ | Office | [facility] | Amy Olivares V, | Chronic systolic CHF | | 2019 | Visit | [facility] | MD [address] | (congestive heart | | | | REHABILITATION [address] | [address] [place], [place] | failure) ([facility]) | | | | [address] | [address] | | | | | [place] [address] | | | | | | [phone] | | | +--------+---------+ + + + [...] of this encounter Progress Gael Ortega - 07/14/2019 12:[address] [facility] CARDIAC REHABILITATION [address] [place] [address] Cardiac Rehab Date: 07/14/2019 Patient Information Patient Name: Bob Will Date of : 1955 Age: 63 y.o. Encounter Diagnoses Code Name Primary? I50.22 Chronic systolic CHF (congestive heart failure) ([facility]) Number of Visits Approved: 34 kx Taken Medications Today? Yes Any Changes in Medications? No Any Problems to Report? No No complaints with exertion. Ventricular paced rhythm without ectopy. Pre O2: 99%, Durin%, SBP prior to exercise 94 /50; during exercise 90/50, post exercise: 90/50. Compliant with medications and therapeutic lifestyle changes. Continue monitored exercise. Patient complained today of lightheadedness and is visiting wi th his provider to adjust Metoprolol. Any abnormal vital signs or rhythm strips will be reported in progress note. Electronically signed by: Gael Woo, 07/14/2019 14:46 Patient Name: Bob Will/: 1955/ ly signed by Gael Woo at 07/14/2019 2:55 PM PSTdocumented in this encounter Plan of [...] [place] | | | | | | [address] | | | | | | | | +--------+ + + + + | 04/16/ | Office | Cardiology | Alin Anderson | | | 2019 | Visit | | MD [address] | | | | | | [address] | | | | | | [place] [address] | | | | | | [phone] | | | | | | | [...] [place] | | | | | | [address] | | | | | | | | +--------+ + + + + documented as of this encounter Visit Diagnoses + + | Diagnosis | + + | Chronic systolic CHF (congestive heart failure) (HCC) | + + documented in this encounter"
--- OUTSIDE RECORDS SUMMARY | ~2020-03-04 | XMS | Encounter Summary ---
Demographics + + + | Address | [address] | | | [place] [address] | + + + | Home Phone [...] [place], [place] | | | | | [address] | | + + + + + Care Team Providers + +------+ + | Care Business Unit Controller Name | Role | Phone | + +------+ + PCP | Unavailable | + +------+ + Reason for Visit + +--------+ + | Reason | Onset | Comments | | | Date | | + +--------+ + | Blood Pressure Check | 09/25/ | | | (Screening) | 2018 | | + +--------+ + Encounter Details +--------+ + + + + | Date | Type | Department | Care Team | Description | +--------+ + + + + | 09/25/ | Telephone | [facility] | Jenny | Blood Pressure Check | | 2017 | | CARDIOLOGY [address] | ADARSH [address] | (Screening) | | | | [place], | [place], | | | | | [place] [address] | [place] [address] | | | | | [phone] | [phone] | | | | | | | [...] encounter Miscellaneous Notes Telephone Encounter - Ronny Chapman RN - 09/30/2017 4:28 PM PSTPatient notified. ..... ......................................RONNY CHAPMAN, RN on 09/30/17 at 16:28 elephone Encounter - Ronny Chapman RN - 09/30/2017 10:32 AM PSTCalled and left a message for patient to ret urn call. ...........................................RONNY CHAPMAN RN on 09/30/17 at 10:3 4 elephone Encounter - Hansa Alvarado ARNP - 09/28/2017 8:59 AM PSTPlease call patient and let him know eliza t I am glad this worked. As for now we will continue with medications the same and we will r echeck echocardiogram as planned. Electronically signed by: ADARSH Stevens 09/28/2017 9:02 elephone Encoun Cindy Moran [facility] - 09/25/2017 3:23 PM PSTFormatting of this note might be dif ferent from the original. Next Visit: 12/01/17 EVM Blood pressure log received from patient as follows: Medication Change: Increase Lisinopril 5 mg AM and 10 mg PM Date BP AM Pulse AM BP PM Pulse PM 09/04/17 120/75 70 120/70 70 09/05/17 122/78 75 124/75 78 09/06/17 123/78 75 121/72 74 09/07/17 124/75 75 124/78 77 09/08/17 125/76 78 125/78 77 09/09/17 124/73 75 124/75 78 09/10/17 124/73 76 125/75 78 09/11/17 125/76 76 125/75 80 09/12/17 125/75 77 124/72 75 09/13/17 125/76 78 125/75 80 09/14/17 126/76 78 126/75 78 09/15/17 125/77 78 126/76 78 09/16/17 126/76 76 126/75 77 09/17/17 126/75 75 126/76 78 Additional Comments: I want to thank you Dr. Alvarado for letting me do this on my own, it taught me qbout The difference that the activities and exercises have effect on you blood pressures and pulse readings, Thank you again Robert documented in this encounter Plan of Treatment [...] | | | | | [place] [address] | | | | | | [phone] | | | | | | | [...] [place] | | | | | | [address] | | | | | | | | +--------+ + + + + documented as of this encounter Visit Diagnoses Not on filedocumented in this encounter"
--- OUTSIDE RECORDS SUMMARY | ~2020-03-04 | XMS | Encounter Summary ---
Demographics + + + | Address | [address] | | | [place] [address] | + + + | Home Phone [...] [place] | | | | | [address] | | + + + + + Care Team Providers + +------+ + | Care Bobbin Fixer Name | Role | Phone | [...] | | | heart | [place], | [place] | | | | | failure | [place] [address] | [place] | | | | | (HCC) | Phone: | [address] | | | | | I50.22 | [phone] | Phone: | | | | | Procedures | Fax: | [phone] | | | | | Cardiac | [phone] | Fax: | | | | | Rehab | | [phone] | +--------+--------+ + + + + Encounter Details +--------+---------+ + + + | Date | Type | Department | Care Team | Description | +--------+---------+ + + + | 07/12/ | Office | [facility] | Aym Olivares V, | Chronic systolic CHF | | 2019 | Visit | [facility] CARDIAC | MD [address] | (congestive heart | | | | REHABILITATION [address] | [address] [place], [place] | failure) ([facility]) | | | | [address] | [address] | | | | | [place] [address] | | | | | | [phone] | | | +--------+---------+ + + + [...] might be different fr om the original. [facility] CARDIAC REHABILITATION [address] [place] [address] Cardiac Rehab Date: 07/12/2019 Patient Information Patient Name: Bob Will Date of : 1955 Age: 63 y.o. Encounter Diagnoses Code Name Primary? I50.22 Chronic systolic CHF (congestive heart failure) ([facility]) Number of Visits Approved: 34 kx [...] | | | | | [address] [facility] | | | | | | [address] [place] | | | | | | [address] | | | | | | | | +--------+ + + + + | 04/16/ | Office | Cardiology | Alin Anderson | | | 2019 | Visit | | MD [address] | | | | | | [address] | | | | | | [place] [address] | | | | | | [phone] | | | | | | | [...] [place] | | | | | | [id number] | | | | | | | | +--------+ + + + + documented as of this encounter Visit Diagnoses + + | Diagnosis | + + | Chronic systolic CHF (congestive heart failure) (HCC) | + + documented in this encounter"
--- OUTSIDE RECORDS SUMMARY | ~2020-03-04 | XMS | Encounter Summary ---
Demographics + + + | Address | [address] | | | [place] [address] | + + + | Home Phone [...] [place], [place] | | | | | [address] | | + + + + + Care Team Providers + +------+ + | Care Dimension Quarry Supervisor Name | Role | Phone | + +------+ + PCP | Unavailable | + +------+ + Reason for Visit + +--------+ + | Reason | Onset | Comments | | | Date | | + +--------+ + | Blood Pressure | 04/06/ | | | | 2018 | | + +--------+ + Encounter Details +--------+ + + + + | Date | Type | Department | Care Team | Description | +--------+ + + + + | 04/06/ | Telephone | [facility] | Carolina Lindarisa, | Blood Pressure | | 2018 | | CARDIOLOGY [address] | [address] [place] [place] | | | | | [place], | [place], | | | | | [place] [address] | [place] [address] | | | | | [phone] | [phone] | | | | | | | [...] Telephone Encounter - Suzanne Cheng RN - 04/08/2018 12:21 PM PDTPatient notified ... .......................................Suzanne Cheng RN on 04/08/18 at 12:22 elephone Encount er - Randy Figueroa MD - 04/06/2018 1:09 PM PDTNo med change. Thank you. elephone Encounter - Franny Blood CMA - 04/06/2018 12:59 PM PDTFormatting of this note robyn ht be different from the original. Next Visit:04/09/18 Blood pressure log received from patient as 03/18/18---03/31/18 Increase Lisinopril to 20mg twice a day Date BP AM Pulse AM BP PM Pulse PM 03/18/18 120/78 77 03/19/18 120/78 78 122/76 78 03/20/18 122/78 78 122/76 78 03/21/18 125/79 78 122/78 78 03/22/18 122/76 76 122/76 78 03/23/18 120/78 78 120/76 80 03/24/18 120/77 78 125/78 80 03/25/18 120/77 78 122/78 80 03/26/18 122/78 78 125/79 80 03/27/18 125/79 77 122/78 79 03/28/18 122/78 77 122/78 79 03/29/18 120/76 78 124/78 80 03/30/18 125/78 78 124/77 80 03/31/18 124/77 78 124/78 78 Additional Comments: documented in this encounter [...] | | | | [address] [place] | | | | | | [address] | | | | | | | | +--------+ + + + + | 04/16/ | Office | Cardiology | Alin Anderson | | | 2019 | Visit | | MD [address] | | | | | | [address] | | | | | | [place] [address] | | | | | | [phone] | | | | | | | [...] [place] | | | | | | [address] | | | | | | | | +--------+ + + + + documented as of this encounter Visit Diagnoses Not on filedocumented in this encounter"
--- OUTSIDE RECORDS SUMMARY | ~2020-03-04 | XMS | Encounter Summary ---
Demographics + + + | Address | [address] | | | [place] [address] | + + + | Home Phone [...] [place] | | | | | [address] | | + + + + + Care Team Providers + +------+ + | Care Global Process Owner Name | Role | Phone | + [...] | | | heart | [place], | [place] | | | | | failure | [place] [address] | [place], [place] | | | | | (HCC) | Phone: | [address] | | | | | I50.22 | [phone] | Phone: | | | | | Procedures | Fax: | [phone] | | | | | Cardiac | [phone] | Fax: | | | | | Rehab | | [phone] | +--------+--------+ + + + + Encounter Details +--------+---------+ + + + | Date | Type | Department | Care Team | Description | +--------+---------+ + + + | 06/14/ | Office | [facility] | Amy Olivares V, | Chronic systolic CHF | | 2019 | Visit | MED CTR CARDIAC | [address] | (congestive heart | | | | REHABILITATION [address] | [address] [place], [place] | failure) ([facility]) | | | | [address] | [address] | (Primary Dx) | | | | [place] [address] | | | | | | [phone] | | | +--------+---------+ + + + [...] of this encounter Progress Notes Lorelei Cruz, ACROBATIC DANCER - 06/14/2019 12:00 PM PDTFormatting of this note might be different fr om the original. [facility] CARDIAC REHABILITATION [address] [facility] [address] Cardiac Rehab Date: 06/14/2019 Patient Information Patient Name: Bob Will Date [...] note. Electronically signed by: Lorelei Cruz RRT, 06/14/2019 13:03 Patient Name: Bob Will/: 1955/ ly signed by Lorelei Cruz RRT at 06/14/2019 1:06 PM PDTdocumented in this encounter Plan of Treatment +--------+ + + + + | Date | Type | Specialty | Care Team | Description | +--------+ + + + + | 03/12/ | Office | Nephrology | [facility], | | | 2019 | Visit | | [address] | | | | | | [facility] | | | | | | [address] [place] | | | | | | [address] | | | | | | | | +--------+ + + + + | 04/16/ | Office | Cardiology | Alin Anderson | | | 2019 | Visit | | MD [address] | | | | | | [address] | | | | | | [place] [address] | | | | | | [phone] | | | | | | | [...] [place] | | | | | | [address] | | | | | | | | +--------+ + + + + documented as of this encounter Visit Diagnoses + + | Diagnosis | + + | Chronic systolic CHF (congestive heart failure) (HCC) - Primary | + + documented in this encounter"
--- OUTSIDE RECORDS SUMMARY | ~2020-03-04 | XMS | Encounter Summary ---
Demographics + + + | Address | [address] | | | [place] [address] | + + + | Home Phone [...] [place], [place] | | | | | [address] | | + + + + + Care Team Providers + +------+ + | Care Personnel Scheduler Name | Role | Phone | + +------+ + PCP | Unavailable | + +------+ + Reason for Visit + + + | Reason | Comments | + + + | Device Check | | | (In-office) | | + + + Encounter Details +--------+ + + + + | Date | Type | Department | Care Team | Description | +--------+ + + + + | 11/11/ | Procedure | [facility] | Juan Roach | Implantable | | 2018 | visit | CARDIOLOGY [address] | MD V[address] | defibrillator | | | | [place], | [address] [place] | reprogramming/check | | | | [place] [address] | [place] [address] | (Primary Dx); COMMERCIAL REVIEW APPRAISER-D | | | | [phone] | [phone] | (AICD) [employer]tr[employer] | | | | [...] documented as of this encounter Procedure Notes Juan Roach MD - 11/11/2017 9:30 AM PSTAssociated Order(s): DEVICE INTERROGATIO NProcedure(s): DEVICE INTERROGATIONPre-Procedure Diagnose(s): Implantable defibrillator repr ogramming/check; Biventricular ICD (implantable cardioverter-defibrillator) in place; Ischem ic cardiomyopathy PATIENT NAME: Bob Will : 1955: AGE: 62 y.o. ICD Evaluation Report November 11, 2017 Reason for evaluation: routine Indication for ICD: ICD-10-CM ICD-9-CM 1. Implantable defibrillator reprogramming/check Z45.02 V53.32 Device Interrogation CANCELED: Device Interrogation - Remote 2. COMMERCIAL REVIEW APPRAISER-D (AICD) [employer] 10/16/17 [facility] Stecker Z95.810 V45.02 Device Interrogation CANCELED: Device [...] ventricular high rate episodes. The longest occurred 3-18 at 8:06 AM for 7 seconds. EGM is consistent with a 29 beat run of NSVT with rate 155-210 beats. No tachycardia therapies recommended or delivered. PVC singles 0.7/hour PVC runs <0.1/hour Histogram good. Battery longevity 9.9 years. Normal and stable device function. Quarterly remote monitoring. Device interrogation due in office in 2 months. documented in this encounter Plan of [...] PATRICK | | | | | | [phone] | | | | | | | | +--------+ + + + + | 04/16/ | Office | Cardiology | Alin Anderson | | | 2019 | Visit | | MD [address] | | | | | | [address] | | | | | | [place] [address] | | | | | | [phone] | | | | | | | | +--------+ + + + + | 04/16/ | Procedure | Cardiology | | | | 2019 | visit | | | | +--------+ + + + + | 04/25/ | Office | Cardiology | DaeElinagwendolyn, | | | 2019 | Visit | | MD Cheryl URENA | | | | | | [place] | | | | | | [address] | | | | | | | | +--------+ + + + + documented as of this encounter Procedures + +--------+ + + + | Procedure Name | Priori | Date/Time | Associated Diagnosis | Comments | | | ty | | | | + +--------+ + + + | DEVICE INTERROGATION | Routin | 11/11/2017 | Implantable | Results for this | | | e | 9:30 AM | defibrillator | procedure are in the | | | | PST | reprogramming/check | results section. | | | | | COMMERCIAL REVIEW APPRAISER-D (AICD) | | | | | | [employer]onic 10/16/17 | | | | | | [facility]UL[facility]IO Darby | | | | | | Ischemic | | | | | | cardiomyopathy | | + +--------+ + + + documented in this encounter Results Device Interrogation (11/11/2017 9:30 AM PST) + + + | Narrative | Performed At | + + + | [facility] | [facility] | | MD Doc 11/11/2017 12:42 PATIENT NAME: Bob Will | | | : 1955: AGE: 62 y.o. ICD Evaluation Report November | | | 2017 Reason for evaluation: routineIndication for ICD: | | | ICD-10-CM ICD-9-CM 1. Implantable defibrillator | | | reprogramming/check Z45.02 V53.32 Device Interrogation CANCELED: | | | Device Interrogation - Remote 2. COMMERCIAL REVIEW APPRAISER-D (AICD) [employer] 10/16/17 [facility] | | | Wilner Z95.810 V45.02 Device Interrogation CANCELED: Device | | | Interrogation - Remote 3. Ischemic cardiomyopathy I25.5 414.8 Device | | | Interrogation CANCELED: Device Interrogation - Remote Patient | | | was seated and reclined and device was interrogated. Defibrillator | | | parameters, battery status, percentages pacing and significant | | | arrhythmias were reviewed. Heart rate histograms were assessed for | | | adequate heart rate response and any alerts reviewed. Appropriate lead | | | impedance testing was performed. Pacing impedances were reviewed for | | | any significant changes. Sensing tests were performed by decreasing | | | LRL. Adequacy of pacing thresholds were tested by increasing LRL for | | | each lead and recorded for loss of capture. Final outputs were | | | assessed for adequate safety margins. Please see the scanned [employer] | | | report and device PDF for further details. Data collected by Kelly Samuel | | | ALFONSO Rodriguez Underlying rhythm: sinus rhythm 67-71 beats.0 mode switch | | | episodes accounting for 0% of the time. 0 atrial high rate episodes. | | | 1 ventricular high rate episodes. The longest occurred 11-11-17 at | | | 8:06 AM for 7 seconds. EGM is consistent with a 29 beat run of NSVT | | | with rate 155-210 beats. No tachycardia therapies recommended or | | | delivered.PVC singles 0.7/hour PVC runs | | | <0.1/hourHistogram good. Battery longevity 9.9 years.Normal and stable | | | device function.Quarterly remote monitoring. Device interrogation due | | | in office in 2 months. | | |Pacing impedances were reviewed for [...] | | | |Underlying rhythm: sinus rhythm 67-71 beats. | | |0 mode switch episodes accounting for 0% of the time. | | |0 atrial high rate episodes. | | |1 ventricular high rate episodes. The longest occurred 11-11-17 at | | |8:06 AM for 7 seconds. EGM is consistent with a 29 beat run of | | |NSVT with rate 155-210 beats. No tachycardia therapies | | |recommended or delivered. | | |PVC singles 0.7/hour | | |PVC runs <0.1/hour | | |Histogram good. Battery longevity 9.9 years. | | |Normal and stable device function. | | |Quarterly remote monitoring. | | |Device interrogation due in office in 2 months. | | + + + + [...] implantable cardiac defibrillator | + + | COMMERCIAL REVIEW APPRAISER-D (GABBI) [employer] 10/16/17 [facility] | + + | Ischemic cardiomyopathy Other specified forms of chronic ischemic heart disease | + + documented in this encounter"
--- OUTSIDE RECORDS SUMMARY | ~2020-03-04 | XMS | Encounter Summary ---
Demographics + + + | Address | [address] | | | [place] [address] | + + + | Home Phone [...] [place], [place] | | | | | [address] | | + + + + + Care Team Providers + +------+ + | Care Choke Reamer Name | Role | Phone | + [...] | | | | | | | [place] | | | | | | | [...] + + | 10/05/ | Surgery | [facility] | Terry Weir MD | EGD | | 2018 | | MED [facility] | [address], [place] | | | | | [address] | [address] | | | | | [place] | [id number] | | | | | [address] | | | | | | [phone] | | | +--------+---------+ + + + [...] + + + | Blood Pressure | 148/79 | 10/05/2017 12:00 PM | | | | | PST | | + + + + + | Pulse | 100 | 10/05/2017 12:00 PM | | | | | PST | | + + + + + | Temperature | 37.9 C (100.2 F) | 10/05/2017 12:00 PM | | | | | PST | | + + + + + | Respiratory Rate | 33 | 10/05/2017 12:00 PM | | | | | PST | | + + + + + | Oxygen Saturation | 96% | 10/05/2017 12:00 PM | | | | | PST | | + + + + + | Inhaled Oxygen | - | - | | | Concentration | | | | + + + + + | Weight | 93.2 kg (205 lb 7.5 | 10/05/2017 3:54 AM | | | | oz) | PST | | + + + + + | Height | - | - | | + + + + + | Body Mass Index | 28.56 | 09/02/2017 7:56 AM | | | | | PST | | + + + + + documented in this encounter Discharge Summaries Destinee rTejo MD - 10/09/2017 3:20 PM PSTFormatting of [...] of known severe ischemic CAD/recent ant wall TN in 03/2017 c/b card iogenic shock s/p ECMO in [facility] 4. Paroxysmal atrial flutter Patient Active Problem List Diagnosis Acute anterior wall TN CAD (coronary artery disease) Ischemic cardiomyopathy Pulmonary [...] history of CAD with recent anterior wall TN, post PTCA and st ents of the left main, LAD and LCx on 03/15/17 + left atrial appendage thrombus c/b cardiac sh ock/respiratory failure requiring Tx to [facility]; was on ECMO, who was a transfer this time from [facility] on 10/03 for acute respiratory failure requiring intubation after prese nting with progressively worsening shortness of breath. Hospital Course, including Complications: He was found to have NSTEMI with new LBBB and elevated tropinin and Septic shock thought t o be from pneumonia/influenza; started on ceftriaxone, azithromycin and tamiflu. He underwen t [facility] on 10/03- severe in-stent stenosis of left [...] with Luz Maria haynes at [facility] but patient refused to go to [place] for re-vascu larization. He preferred to go to [facility]. Dr. Gomez discussed with Dr. Bedoya at [facility] and he was accepted by [...] of known severe ischemic CAD/recent ant wall TN in 03/2017 c/b card iogenic shock s/p ECMO in [facility] - troponin peaked to 26 - [facility] on 10/03- severe in-stent stenosis of left [...] Gomez discussed with Cardiology at [facility] and was accepted at [facility] for re-vascularization but patient refused and wanted to be transferred to [facility]. Dr. Gomez discussed with cardiology at [facility] and was accepted by them. [...] results on DC: None Disposition: Transfer to [facility] cardiology service Dr. Bedoya accepting physician Discharge Procedure Orders Transfer patient to other facility Order Comments: [facility] when bed is available. Code Status/Advance Directive (Pertinent discussions/declarations): Full Code Time spent on Discharge and Coordination of post-hospital care: >30 minutes Electronically signed by: Destinee Trejo, 10/10/2017 15:01 [facility] documented in this en counter Medications at [...] Oneal RN - 10/10/2017 3:55 PM PSTCalled MOMENDY, RN informed that Lotus sabillon to call back this RN, phone number given. Electronically signed by: Rhea carroll RN 10/10/2017 15:58 Rhea Caal RN - 10/10/2017 1:59 PM PSTPatient called RN to bedside, patient to go to [facility], wants to get better and do the procedure. RN to inform MD Electronically signed by: Josselin Ventura RN 10/10/2017 14:00 Electronically signed by Rhea Ventura RN at 2:00 PM Rhea Caal RN - 10/10/2017 1:06 PM PSTDrFletcher Gomez at beds surinder to explain to the [...] The patient will be transferred today to [facility] for coronary revascularization. MEDICATIONS: Current Facility-Administered Medications [...] on amiodarone PLAN OR RECOMMENDATIONS: Transfer to [facility] audiology service Dr. Segura accepting physician I appreciate the opportunity of participating in the care of this patient. Delmer Gomez MD, 10/09/2017 15:00 Olga, MD Destinee - 10/09/2017 8:16 AM PST [facility] PMG Hospitalist Progress Note Ron Hood is a 61 y.o. male INTERVAL HPI: He is a 61 y.o. male with a history of CAD with recent anterior wall TN, post PTCA and sten ts of the left main, LAD and LCx on 03/15/17 + left atrial appendage thrombus c/b cardiac shoc k/respiratory failure requiring Tx to [facility]; was on ECMO, who was a transfer this time from [facility] on 10/03 for acute respiratory failure [...] of known severe ischemic CAD/recent ant wall TN in 03/2017 c/b card iogenic shock s/p ECMO in [facility] - troponin peaked to 26 [...] consult with cardiology team at [facility] Re: planning for revascularization today 4. [...] as outlined above. Destinee Trejo 10/09/2017 8:16 [facility] Destinee Espinoza MD - 10/08/2017 12:20 PM PST [facility] PMG Hospitalist Progress Note Ron Hood is a 61 y.o. male INTERVAL HPI: He is a 61 y.o. male with a history of CAD with recent anterior wall TN, post PTCA and sten ts of the left main, LAD and LCx on 03/15/17 + left atrial appendage thrombus c/b cardiac shoc k/respiratory failure requiring Tx to [facility]; was on ECMO, who was a transfer this time from [facility] on 10/03 for acute respiratory failure [...] % on high-flow nasal ca nnula, heated, wine blender system at flow rate 14L/min Temp Min: [...] of known severe ischemic CAD/recent ant wall TN in 03/2017 c/b card iogenic shock s/p ECMO in [facility] - troponin peaked to 26 [...] consult with cardiology team at [facility] Re: planning for revascularization today 4. [...] as outlined above. Destinee Trejo 10/08/2017 12:20 [facility] Destinee Espinoza MD - 10/07/2017 2:38 PM PST [facility] PMG Hospitalist Progress Note Ron Hood is a 61 y.o. male INTERVAL HPI: He is a 61 y.o. male with a history of CAD with recent anterior wall TN, post PTCA and sten ts of the left main, LAD and LCx on 03/15/17 + left atrial appendage thrombus c/b cardiac shoc k/respiratory failure requiring Tx to [facility]; was on ECMO, who was a transfer this time from [facility] on 10/03 for acute respiratory failure [...] of known severe ischemic CAD/recent ant wall TN in 03/2017 c/b card iogenic shock s/p ECMO in [facility] - troponin peaked to 26 - [facility] on 10/03- severe in-stent stenosis of left [...] consult with cardiology team at [facility] Re: planning for revascularization 4. Paroxysmal [...] as outlined above. Destinee Trejo 10/07/2017 14:38 [facility] Delmer Mcmanus MD - 10/07/2017 12:07 PM [...] mg 40 mg Oral BID AC Carlos D Gladys, PharmD 40 m g at 10/09/17 0634 [...] RECOMMENDATIONS: Continue current medical management We'll contact [facility] regarding transfer and revascularization plann ing I [...] orally BID Carlos Graham PharmD 10/07/2017 9:59 [facility] IV TO PO Collaborative Practice Protocol Delmer [...] Lind MD 40 m g at 10/06/17 08 cefTRIAXone (ROCEPHIN) 2 g in sodium chloride [...] troponin Will consult with cardiology team at [facility] regarding planning for coronary revascularization prior to discharge home I appreciate the opportunity of participating in the care of this patient. Delmer Gomez MD, 10/06/2017 17:17 eil, MD Destinee - 10/06/2017 12:45 PM PST [facility] PMG Hospitalist Progress Note Ron Hood is a 61 y.o. male INTERVAL HPI: He is a 61 y.o. male with a history of CAD with recent anterior wall TN, post PTCA and sten ts of the left main, LAD and LCx on 03/15/17 + left atrial appendage thrombus c/b cardiac shoc k/respiratory failure requiring Tx to [facility]; was on ECMO, who was a transfer this time from [facility] on 10/03 for acute respiratory failure [...] 95 % on high-flow nasal can nula, wine blender system, heated at flow rate 14L/min Temp [...] now present Confirmed by FLORY العلي MD ([id number]) on 10/06/2017 7:17:27 AM POC Glucose Result [...] of known severe ischemic CAD/recent ant wall TN in 03/2017 c/b card iogenic shock s/p ECMO in [facility] - troponin peaked to 26 [...] as outlined above. Destinee Trejo 10/06/2017 12:45 [facility] Clinton Hernandez MD - 10/05/2017 9:17 PM [...] Hernandez MD - 10/05/2017 9:39 AM PST [facility] PMG Hospitalist Progress Note Ron Hood [...] as outlined above. Clinton Burnett 10/05/2017 9:39 [facility] Portions of this chart may have been created with [employer] voice recognition software. Occasi onal wrong-word or sound-alike substitutions may have occurred due to the inherent canseco itations of voice recognition software. Please read the chart carefully and recognize, using context, where these substitutions have occurred Clinton Hernandez MD - 0 10/04/2017 12:41 PM PST [facility] PMG Hospitalist Progress Note Ron Hood [...] as outlined above. Clinton Burnett 10/04/2017 12:42 [facility] Portions of this chart may have been created with [employer] voice recognition software. Occasi onal wrong-word or [...] injection 12.5 g 12.5 g Intravenous PRN Ganag Lind MD enoxaparin (LOVENOX) 40 mg/0.4 mL [...] :consider ischemia/infarction Confirmed by ZOHRA BREWER, FLORY ([id number]) on 10/04/2017 10:35:54 AM Influenza A PCR [...] 10/03/2017 5.0 5.0 - 8.0 Final Specific Mcclure 10/03/2017 1.006 1.001 - 1.030 Final PROTEIN [...] infectious process. 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 [facility] H[facility]PITALIST HISTORY & PHYSICAL Patient: Ron Hood : 1955: Age: 61 y.o. MedRec: [id number] Admission date: 10/03/2017 Hospital day # : 0 Physician author: Ganga Lind MD Today: 10/03/2017 CHIEF COMPLAINT: Hypoxic respiratory failure HISTORY OF PRESENT ILLNESS: This is a 61 y.o. male with a history of coronary artery disease post recent anterior wall TN, post PTCA and stents of the left main, LAD and LCx on 03/15/17, cardiac shock, left atrial appendage thrombus who presented to [facility] for progressively worsening shortn ess [...] mild hypokinesis of the anterior wall. Hospitalized: [facility] 03/15-04/02/17 transferred 03/15in acute cardiogenic shock requiring [...] Medical History: Diagnosis Date Acute anterior wall TN (HCC) 04/03/2017 Angiography and stent 03/15/2017 successful [...] Cor Angio; Surgeon: Monse Ross MD; Location: [facility] CV LAB ELBOW SURGERY Left GALLBLADDER [...] Status Full Medical Decision Maker [place] Hood [phone] DVT Prophylaxis Warfarin PLAN: Acute hypoxic respiratory failure possibly 2/2 to pulmonary edema in setting of Acute systo lic heart failure +/- CAP with concern for ARDS Unable to obtain history. Patient had complicated admission in [facility] with recent IABP placem ent, anterior STEMI [...] decannulation. Completedheparin gtt bridge 03/29 to the rapeut warfarin Currently does not appear to be on warfarin, possibly discontinued after 3 months, will nee d med rec History of Chronic ischemic CMP (EF 50-55% in 06/04/17) Holding carvedilol, lisinopril given hypotension FEN: NPO PPX: Lovenox [facility] Documentation I expect this patient will be hospitalized for greater than 2-midnights and expect the post -hospital plan to be discharge to home or to an adult foster home. Electronically signed by: Ganga Lind MD 10/03/2017 10:02 [facility] documented in this e ncounter Procedure Notes Delmer Gomez MD - 10/03/2017 4:06 PM PSTAssociated Order(s): CV CARDIAC PROCEDUREPre-Pr ocedure Diagnose(s): NSTEMI (non-ST elevated myocardial infarction) (HCC)Post-Procedure Diag nose(s): NSTEMI (non-ST elevated myocardial infarction) (HCC)CARDIAC CATHETERIZATION REPORT DATE OF PROCEDURE: 10/03/17 PRECATHETERIZATION INFORMED CONSENT : Yes TIMEOUT Before start of procedure done: Yes SPRINKLING SYSTEM INSTALLER: Delmer Gomez M.D., F.A.C.C. PRIMARY PHYSICIAN: Chato Matson MD PROCEDURES PERFORMED: Left heart catheterization, selective coronary arteriography INDICATIONS : 61-year-old gentleman presenting with acute hypoxic respiratory failure, new left bundle branch block, increasing troponin levels, history of coronary artery PCI and pr ior anterior myocardial infarction ARTERIAL ACCESS: Right femoral artery 6 Fijian CLOSURE DEVICE:. Sheath left in place as [...] a modified Seldinger technique and a 6 Fijian sheath was inserted. Selective coronary arteriography was performed using 6 Fijian Kymberly right 4 and left 4 catheters. [...] instability we will transfer the patient to [facility] for consideration of urgent coronary revascularization. Delmer Gomez M.D., F.A.C.C. [employer] [place], [place] documented in this enc ounter Consult [...] occlusion. The patient [facility] and no further [...] chest pain. The patient was transferred to [facility] where ECG showed left b undle branch [...] Medical History: Diagnosis Date Acute anterior wall TN (HCC) 04/03/2017 Angiography and stent 03/15/2017 successful [...] Cor Angio; Surgeon: Monse Ross MD; Location: [facility] CV LAB ELBOW SURGERY Left GALLBLADDER [...] (NS) infusion Intravenous Continuous Ganga Lind MD [facility] list of outpatient meds: Prescriptions Prior [...] 10/03/2017 5.0 5.0 - 8.0 Final Specific Mcclure 10/03/2017 1.006 1.001 - 1.030 Final PROTEIN [...] Notes Plan of Care - Bob Gonzalez, ELECTROMECHANICAL ASSEMBLER - 10/10/2017 3:44 PM PSTProblem: Patient Care [...] Ron is now subhash ng transferred to [facility] for further treatment of his heart issues. RT goal met. Call RT for any respiratory concerns. lan of Clinton Zapata Jr., ELECTROMECHANICAL ASSEMBLER - 10/10/2017 5:26 AM PSTProblem: Patient Care [...] as ordere d. lan of Care - Salvador elkins, ALFONSO Cantrell - 10/10/2017 3:23 AM PSTProblem: [...] on room air, denied shortness of breath. Chardon 2 tabs given for complain of back pain. Alert and oriented. Call light within reach. lan of Care - Rhea Padgett RN - 10/09/2017 5:57 [...] needs known. lan of Care - Adele Chamberlain RRT - 10/09/2017 5:30 PM PSTProblem: Patient Care [...] Home Health vs SNF. At this time joaquim solitario, no further acute OT intervention is indicated. [...] ADLs Long-sleeved shirt. UB Dressing, Level of Boundary: set up required UB Dressing Assess/Train, Position: sitting UB Dressing Assess/Train, Impairments: decreased flexibility Already wearing pants, but can doff/don socks by crossing legs. LB Dressing, Level of Boundary: set up required, supervised LB Dressing Assess/Train, Position: sitting, standing LB Dressing Assess/Train, Impairments: strength decreased Toileting, Level of Boundary: supervised Toileting Assess/Train, Impairments: postural control impaired, [...] improved w/ height adjustment. Sit-Stand, Level of Boundary: SBA Stand-Sit, Level of Boundary: stand by assist Qgo-Qetrt-Stb, Assistive Device: 4 wheeled walker (4WW) Toilet, Level of Boundary: stand by assist Toilet, Assistive Device: 4 [...] STG Status met at 10/09/2017 1700 STG Boundary Level stand by assist at 10/07/2017 1157 STG Position supported standing, standing at 10/07/2017 1157 STG Adaptive Equipment none at 10/07/2017 1157 Toilet Transfer Goal Flowsheet Row Most Recent Value STG Status met at 10/09/2017 1700 STG Boundary Level stand by assist, set up required, [...] are: Recommended discharge disposition: inpatient rehabilitation facility, fpc faci lity (vs, TBD) Post discharge physical [...] use 4 ww from home Level of Boundary: stand by assist Assistive Device: 4 wheeled [...] l ess O2 required Sit-Stand, Level of Boundary: stand by assist Stand-Sit, Level of Boundary: stand by assist Gxr-Xvmou-Yeg, Assistive Device: 4 wheeled walker (4WW) Toilet, Level of Boundary: contact guard assist Toilet, Assistive Device: 4 [...] STG Status progressing at 10/08/2017 1130 STG Boundary Level modified independent at 10/06/2017 1340 Kmj-Skunk-Rfl Goal Flowsheet Row Most Recent Value STG Status progressing at 10/09/2017 1157 STG Boundary Level modified independent at 10/06/2017 1340 STG Assistive Device 4 wheeled walker (4WW) at 10/06/2017 1340 Gait Goal Flowsheet Row Most Recent Value STG Status progressing at 10/09/2017 1157 STG Boundary Level modified independent at 10/06/2017 1340 STG Assistive Device 4 wheeled walker (4WW) at 10/06/2017 1340 STG Distance (feet) 50 at 10/06/2017 1340 Stair Goal Flowsheet Row Most Recent Value STG Status new at 10/06/2017 1340 STG Boundary Level modified independent at 10/06/2017 1340 STG Assistive Device 2 rails at 10/06/2017 1340 STG Number of Stairs 4 at 10/06/2017 1340 Electronically signed by: Merrill Evans PTA, 10/09/2017 11:58 lan of Care - Roshan ett, Kelly Mai ELECTROMECHANICAL ASSEMBLER - 10/09/2017 5:57 AM PSTProblem: Patient Care [...] Patient on NC @ 5L O2, improving. Chardon given for chron ic neck pain x2. Droplet precautions maintained. F/C d/c'ed 10/08/17, UOP good. Up in chair x2 . lan of Care - Shoaib Leary, ELECTROMECHANICAL ASSEMBLER - 10/08/2017 3:10 PM PSTProblem: Patient Care [...] spoken to Christine Garcia this afternoon reg arding a [employer] application. I placed it in the patient's ghost chart and let her know eliza t she needed to ask her 's RN to retrieve it for her. I instructed her to turn it in to the Service Clerk's Office when completed and they would answer any questions she may have as Christine Garcia will be gone tomorrow. I let her know what documents she would need to have to c omplete the application as well. I faxed a referral to [facility] through [employer] as well as she has no had time to visit the other SNFs yet. Electronically signed by: Arleth Vincent RN 10/08/2017 14:03 lan of Care - Merrill German PTA - 10/08/2017 11:00 AM PSTFormatting of this [...] are: Recommended discharge disposition: inpatient rehabilitation facility, fpc faci lity (vs, TBD) Post discharge physical [...] pt much happier using it Level of Boundary: contact guard assist, verbal cues required Assistive [...] d/t high flow NC Bed-Chair, Level of Boundary: contact guard assist, verbal cues required, set up requir ed Chair-Bed, Level of Boundary: not tested Gbg-Eczsw-Ahr, Assistive Device: 2 wheeled walker (FWW) Sit-Stand, Level of Boundary: verbal cues required, contact guard assist, set up requir ed Stand-Sit, Level of Boundary: contact guard assist, verbal cues required, set up requir ed Hrn-Uoeye-Xng, Assistive Device: 2 wheeled walker (FWW) Safety [...] STG Status progressing at 10/08/2017 1130 STG Boundary Level modified independent at 10/06/2017 1340 Mfc-Wbfmx-Rxw Goal Flowsheet Row Most Recent Value STG Status progressing at 10/08/2017 1130 STG Boundary Level modified independent at 10/06/2017 1340 STG Assistive Device 4 wheeled walker (4WW) at 10/06/2017 1340 Gait Goal Flowsheet Row Most Recent Value STG Status progressing at 10/08/2017 1130 STG Boundary Level modified independent at 10/06/2017 1340 STG Assistive Device 4 wheeled walker (4WW) at 10/06/2017 1340 STG Distance (feet) 50 at 10/06/2017 1340 Stair Goal Flowsheet Row Most Recent Value STG Status new at 10/06/2017 1340 STG Boundary Level modified independent at 10/06/2017 1340 STG Assistive Device 2 rails at 10/06/2017 1340 STG Number of Stairs 4 at 10/06/2017 1340 Electronically signed by: Merrill Evans PTA, 10/08/2017 11:32 lan of Care - Kelly Rivera, BARRON - 10/08/2017 5:56 AM PSTProblem: Patient [...] NIV for a couple of hours via Prak mask but then replaced high f low [...] intermittent pi nk/white thick sputum. VSS day. Chardon x3 for generalized pain. continues to refuse to w ear mask for positive flu in room, agreed to wear mask when leaving pt. Room. lan of Care - Arleth Craig RN - 10/07/2017 6:45 PM PSTProblem: Discharge Planning Goal: Patient will be discharged in a safe manner Outcome: Unchanged I visited with and Mrs Hood this afternoon regarding discharge planning. They live in [place], [place] a mobile home with four steps with a handrail leading to the entrance. He is normally independent and drives. They are very concerned regarding this hospital bi ll and I called and left a message for Christine Garcia from [employer] [facility] requesting a visit tomorrow to see if they are eligible for any services or lotus. His PCP is Dr. Matson. Darshan reyes is a and is 40% service connected per Lulu at the [place]. He uses the [facility] or the [place] pharmacy. He owns a WC, a 4WW and a cane. He chose [facility] as his D [place] agency of choice. We also discussed [facility] [place] [facility] He is ag reeable to Home Health services as well. For a "Plan B" he chose: 1) [place] and Mrs Sania Noble will take a look at [facility], [facility] and Tabitha parry nd let me know [...] at level safe for home d ischarge, [facility] indicating significant impairment with basic functional mobility and medical status. Ron will benefit from continued therapeutic intervention to address ongoing impairments and increase safety and independence with activities necessary for safe discharge. Refer be low for specific details regarding functional levels. Physical Therapy Discharge Recommendations are: Recommended discharge disposition: inpatient rehabilitation facility, fpc faci lity (vs, TBD) Post discharge physical [...] still limited by high flow Level of Boundary: minimal assist (75% patient effort) Assistive Device: 2 wheeled walker (FWW) Distance (feet): 3 Transfers impaired activity tolerance, cues for safety and hand placement; limited mobility d/t on hi gh flow NC Bed-Chair, Level of Boundary: contact guard assist, verbal cues required, set up requir ed Chair-Bed, Level of Boundary: not tested Czh-Tjjpf-Quk, Assistive Device: 2 wheeled walker (FWW) Sit-Stand, Level of Boundary: verbal cues required, tactile cues required, contact guar d assist Stand-Sit, Level of Boundary: contact guard assist, verbal cues required Dzj-Juqle-Elm, Assistive Device: 2 wheeled walker (FWW) Impairments: strength decreased, impaired balance Bed Mobility increased time, assist for line management Supine to Sit, Level of Boundary: moderate assist (50% patient effort), verbal cues [...] STG Status progressing at 10/07/2017 1340 STG Boundary Level modified independent at 10/06/2017 1340 Osq-Osegg-Men Goal Flowsheet Row Most Recent Value STG Status progressing at 10/07/2017 1340 STG Boundary Level modified independent at 10/06/2017 1340 STG Assistive Device 4 wheeled walker (4WW) at 10/06/2017 1340 Gait Goal Flowsheet Row Most Recent Value STG Status progressing at 10/07/2017 1340 STG Boundary Level modified independent at 10/06/2017 1340 STG Assistive Device 4 wheeled walker (4WW) at 10/06/2017 1340 STG Distance (feet) 50 at 10/06/2017 1340 Stair Goal Flowsheet Row Most Recent Value STG Status new at 10/06/2017 1340 STG Boundary Level modified independent at 10/06/2017 1340 STG [...] Therapy Discharge Recommendations are: Recommended discharge disposition: fpc facility Post discharge occupational therapy recommendation: will [...] line mgmt. Supine to Sit, Level of Boundary: minimal assist (75% patient effort), verbal cues requ ired, tactile cues required, set up required, 1 person + 1 person to manage equipment Sit to Supine, Level of Boundary: not tested Safety Issues: decreased use of arms for pushing/pulling, decreased use of legs for bridgin g/pushing Impairments: strength decreased, impaired balance Transfers Impaired activity tolerance, cues for safety, hand plcmt on FWW. Pt still on high flow O2 so limited in mobility. Bed-Chair, Level of Boundary: contact guard assist, verbal cues required, set up requir ed, 1 person + 1 person to manage equipment Sit-Stand, Level of Boundary: 1 person + 1 person to manage equipment, verbal cues requ ired, tactile cues required, contact guard assist Stand-Sit, Level of Boundary: contact guard assist, 1 person + 1 person to manage equip ment, verbal cues required Usl-Xzpik-Mko, Assistive Device: 2 wheeled walker (FWW) Impairments: strength decreased, impaired balance OT Goal Review Date Flowsheet Row Most Recent Value STG Review Date 10/10/17 at 10/07/2017 1157 Grooming Goal Flowsheet Row Most Recent Value STG Status new at 10/07/2017 1157 STG Boundary Level stand by assist at 10/07/2017 1157 STG Position supported standing, standing at 10/07/2017 1157 STG Adaptive Equipment none at 10/07/2017 1157 Toilet Transfer Goal Flowsheet Row Most Recent Value STG Status new at 10/07/2017 1157 STG Boundary Level stand by assist, set up required, [...] bridging to PO tomorrow. PO metoprolol held. Chardon X 3 for pain. continues to refuse [...] mo tor exam, PO trials and performance. FINISH CLEANER recommends diet upgrade to regular textures with th in lquids with pt always upright in chair for meals. FINISH CLEANER educated pt on pacing himself when eating. Staff to cut food for him d/t mild UE weakness, reduced dexterity. Pt verbalized und erstanding. No further skilled FINISH CLEANER services needed at this time. Textures attempted [...] at 10/06/2017 1750 Electronically signed by: Taryn White, Speech Pathologist, 10/06/2017 17:52 G oal Evaluation: TPlan of Care - IsaiahaidanMirna, PT - 10/06/2017 1:40 PM PSTFormatting of [...] 3 days. He correctly recalled being in [place] and that his had t o remind him that this AM as he thought he was at [facility]. Patient pleasant and agreeable. Re ported fatigue [...] high flow O2 needs Chair-Bed, Level of Boundary: minimal assist (75% patient effort), 1 person + 1 person to manage equipment, verbal cues required, tactile cues required Xyo-Lopyz-Irv, Assistive Device: 2 wheeled walker (FWW) Sit-Stand, Level of Boundary: minimal assist (75% patient effort), 1 person + 1 person to manage equipment, verbal cues required, tactile cues required Stand-Sit, Level of Boundary: contact guard assist, 1 person + 1 person to manage equip ment, verbal cues required Pzd-Ljdzs-Peb, Assistive Device: 2 wheeled walker (FWW) Impairments: strength decreased, impaired balance (activity tolerance) Bed Mobility increased time and cues for safety Supine to Sit, Level of Boundary: moderate assist (50% patient effort), 1 person [...] Strength: gross deconditioning due to prolonged bedrest AMPA BASIC MOBILITY [facility] BASIC MOBILITY Turning over in bed: a [...] steps with a railing: dependent/unable TOTAL - AMPA BASIC MOBILITY : 14 Completed the [facility] Activity Measure for Post Acute Care (AM-PAC) "6 Clicks" [facility] Mobility Inpatient Short Form. This version of [...] STG Status new at 10/06/2017 1340 STG Boundary Level modified independent at 10/06/2017 1340 Gkw-Aebqi-Hiq Goal Flowsheet Row Most Recent Value STG Status new at 10/06/2017 1340 STG Boundary Level modified independent at 10/06/2017 1340 STG Assistive Device 4 wheeled walker (4WW) at 10/06/2017 1340 Gait Goal Flowsheet Row Most Recent Value STG Status new at 10/06/2017 1340 STG Boundary Level modified independent at 10/06/2017 1340 STG Assistive Device 4 wheeled walker (4WW) at 10/06/2017 1340 STG Distance (feet) 50 at 10/06/2017 1340 Stair Goal Flowsheet Row Most Recent Value STG Status new at 10/06/2017 1340 STG Boundary Level modified independent at 10/06/2017 1340 STG [...] Evaluation: Extubated yesterday afternoon. On bipap overnight. Chardon X 3 given for pain. A/O slight [...] Endoscopy Patient: Ron Hood : 1955 Acct: [id number] Exam Date: Thursday, October 05, 2017 Doctor: [...] If unable to reach your physician, call [facility] Emergency Department at Ext. [phone] Your doctor [...] has been signed electronically.Electronically signed by Terry Weir MD at 11:30 AM PSTPlan Care - [...] essentially clear throughout, no distress noted lan Care - Ashleigh Bolton RN - 10/05/2017 [...] extubated. Ron lives with his spouse in [place]. Ron is normally independent with his needs. Ron uses [facility] for his pharmacy. PCP: Dano U[place] will [...] who is admitted for Pulmonary edema [J81.1]. Insulation Mechanic visit was part of routine rounding. Spiritual Evaluation: Patient was sleeping. Debbie was resting at his bedside. She was hopeful about his cond ition and said that he is doing better today than yesterday. 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 She s aid that she was raised Jain, but is open religiously at this point. She desired rest t his morning. Spiritual Interventions: Smooth Stucco Resurfacer attended, offered care, listened actively, and explored [...] 12.5. Pillai d cardiology, patient went for [facility] with findings of: severe in-stent stenosis of L main to o stial LAD stent, Severe in-stent stenosis ostial proximal L circ stent. Patient was recommen ded if patient had cardiac instability to be transferred to [place], but at this time to [facility] treating with broad spectrum abx, fluid support. Hep gtt was not recommended. Patient will be continued on plavix, ASA, statin. Patient was continued on azithromycin, ceftriaxone . Maintenance IVFs was started given L ventricular filling pressures and unchanged Ef. Patie nt was weaned off levophed during the day. Awaiting for cultures. lan of Care - Shoaib Bueno, ELECTROMECHANICAL ASSEMBLER - 018 6:51 PM PSTProblem: Patient Care [...] Evaluation: Patient was a direct admit from [facility]. Respiratory Failure. Tested positive for influe nza [...] | 03/12/ | Office | Nephrology | [facility], | | | 2019 | Visit | | AD[address] | | | | | | [address] [facility] | | | | | | [...] | | | | | [place] [address] | | | | | | [phone] | | | | | | | [...] [place] | | | | | | [address] | | | | | | | [...] upper GI | | | | | 10:57 AM | bleeding | | | | | PST | [...] [address] | [place] | [phone] | | [facility] | | [address] | | | - LABORATORY | | [...] ST. | [address] | [place], [place] | [phone] | | [facility] | | [address] | | | - LABORATORY | | [...] [address] | [place] | [phone] | | [facility] | | [address] | | | - LABORATORY | | [...] + | [facility] | [address] | [place] | [phone] | | [facility] | | [address] | | | - LABORATORY | | [...] + | [facility] | [address] | [place] | [phone] | | [facility] | | [address] | | | - LABORATORY | | | | + + + + + POC Glucose (10/09/2017 6:38 AM PST) + +-------+ + + + | Component | Value | Ref Range | Performed | Pathologist | | | | | At | Signature | + +-------+ + + + | Glucose, | 109 | 70 - 109 mg/dL | [facility] [...] [address] | [place] | [phone] | | [facility] | | [address] | | | - LABORATORY | | [...] | | Lavender | | | [facility] | | | Top Tube | | [...] + | [facility] | [address] | [place] | [phone] | | [facility] | | [address] | | | - LABORATORY | | [...] (H) | 7 - 18 mg/dL | [facility] | | | | | | [facility] | | | | | | MEDICAL | | | | | | CENTER - | | | | | | LABORATORY | | + + + + + + | Creatinine | 1.23 | 0.60 - 1.30 | [facility] | [...] | | FILTRATION | mL/min/1.73m2 | [facility] | | | [place] | RATE,ESTIMATED | | MEDICAL | | | | mL/min/1.89q4Viyu than | | CENTER - | | [...] + + | [facility] | [address] | [place] | [phone] | | [facility] | | [address] | | | - LABORATORY | | [...] [address] | [place] | [phone] | | [facility] | | [address] | | | - LABORATORY | | | | + + + + + POC Glucose (10/08/2017 4:57 PM PST) + +-------+ + + + | Component | Value | Ref Range | Performed | Pathologist | | | | | At | Signature | + +-------+ + + + | Glucose, | 96 | 70 - 109 mg/dL | [facility] [...] [address] | [place] | [phone] | | [facility] | | [address] | | | - LABORATORY | | [...] [address] | [place] | [phone] | | [facility] | | [address] | | | - LABORATORY | | [...] [address] | [place] | [phone] | | [facility] | | [address] | | | - LABORATORY | | [...] [address] | [place] | [phone] | | [facility] | | [address] | | | - LABORATORY | | [...] | | | POC | | | [facility] | | | | | | MEDICAL [...] + | [facility] | [address] | [place] | [phone] | | [facility] | | [address] | | | - LABORATORY | | [...] [address] | [place] | [phone] | | [facility] | | [address] | | | - LABORATORY | | | | + + + + + POC Glucose (10/07/2017 7:38 AM PST) + +-------+ + + + | Component | Value | Ref Range | Performed | Pathologist | | | | | At | Signature | + +-------+ + + + | Glucose, | 104 | 70 - 109 mg/dL | [facility] [...] [address] | [place] | [phone] | | [facility] | | [address] | | | - LABORATORY | | [...] + | [facility] | [address] | [place] | [phone] | | [facility] | | [address] | | | - LABORATORY | | [...] | 1.29 | 0.60 - 1.30 | [facility] | [...] mL/min/1.73m2 | [facility] | | | [place] | RATE,ESTIMATED | | MEDICAL | | | | mL/min/1.62f9Tfbh than | | CENTER - | | [...] ST. | [address] | [place], [place] | [phone] | | [facility] | | [address] | | | - LABORATORY | | | | + + + + + CBC with Differential (10/07/2017 3:51 AM PST) + + + + + + | Component | Value | Ref Range | Performed | Pathologist | | | | | At | Signature | + + + + + + | WBC | 10.9 | 4.0 - 11.0 K/uL | [facility] [...] | 0.00 | 0.00 - 0.10 | [facility] | | | Basophils | | K/uL [...] [address] | [place] | [phone] | | [facility] | | [address] | | | - LABORATORY | | [...] ST. | [address] | [place], [place] | [phone] | | [facility] | | [address] | | | - LABORATORY | | | | + + + + + XR Chest AP Portable (10/07/2017 3:[address] [facility]) + + | Specimen | + + [...] [address] | [place] | [phone] | | [facility] | | [address] | | | - LABORATORY | | | | + + + + + POC Glucose (10/06/2017 8:41 PM PST) + +-------+ + + + | Component | Value | Ref Range | Performed | Pathologist | | | | | At | Signature | + +-------+ + + + | Glucose, | 101 | 70 - 109 mg/dL | [facility] [...] [address] | [place] | [phone] | | [facility] | | [address] | | | - LABORATORY | | [...] The | | | | | | [employer] | | | | | [...] [address] | [place] | [phone] | | [facility] | | [address] | | | - LABORATORY | | [...] + | [facility] | [address] | [place] | [phone] | | [facility] | | [address] | | | - LABORATORY | | [...] + | [facility] | [address] | [place] | [phone] | | [facility] | | [address] | | | - LABORATORY | | [...] | | POC | | | [facility] | | | | | | MEDICAL [...] [address] | [place] | [phone] | | [facility] | | [address] | | | - LABORATORY | | [...] pneumoniaComparison: Chest x-rays dating to October 03, | | 2000TECHNIQUE: A single portable view of the chest.FINDINGS:Interval [...] [facility] | | | | | | [facility] [...] [address] | [place] | [phone] | | [facility] | | [address] | | | - LABORATORY | | [...] | mL/min/1.73m2 | [facility] | | | [place] | RATE,ESTIMATED | | MEDICAL | | | | mL/min/1.31l4Hiqb than | | CENTER - | | [...] [address] | [place] | [phone] | | [facility] | | [address] | | | - LABORATORY | | [...] | Basophils | | K/uL | [facility] | [...] [address] | [place] | [phone] | | [facility] | | [address] | | | - LABORATORY | | [...] | | | POC | | | [facility] | | | | | | MEDICAL [...] + | [facility] | [address] | [place] | [phone] | | [facility] | | [address] | | | - LABORATORY | | [...] | | | | ZOHRA BREWER, FLORY ([id number]) | | | | | | on [...] Dictated and Signed by: Jai De La Rosa, | | | Electronically signed: 10/05/2017 8:46 [...] | | | | FLORY العلي MD ([id number]) | | | | | | on [...] ST. | [address] | [place] | [phone] | | [facility] | | [address] | | | - LABORATORY | | | | + + + + + IZAIAH (10/05/2017 10:56 AM PST) + + | Specimen | + + | | + + + + -+ | Narrative | Performed At | + + -+ | | [facility] | | GastroenterologyPatient Name: Ron HoodProcedloree Date: | PROVATION | | 10/05/2017 10:56 AMMRN: [id number] #: [id number] of : | | | 5Admit Type: InpatientAge: 61Room: [facility] 01Gender: MaleNote | | | Status: FinalizedAttending MD: Terry Weir , [facility]AMrocedure: | | | Upper GI endoscopyIndications: Suspected upper | | | gastrointestinal bleedingProviders: Terry Weir MD, | | | Gil Tam RN, Elizabeth Patel | | | ALFONSO Rivers, Siddharth Bradley CMA, [place] Jc, | | | Hardwood Finisher, Yong Napier MD (Anesthesia | | | [...] the anesthesiologist and | | | the highway engineering technician in the procedure room. Mental Status [...] Scope In: 11:00:34 AMScope Out: 11:11:30 AM [place] | | | [facility], [address] [place] [address] | | | [phone] | | | area of the papilla [...] |Scope Out: 11:11:30 AM | | | [facility], [facility] [address] [place], [place] | | | [address] | | + + -+ + +---------+ [...] approximately | | 4.5 cm above the atnya. Esophagogastric tube again passes into the imaged [...] ST. | [address] | [place] | [phone] | | [facility] | | [address] | | | - LABORATORY | | [...] [address] | [place] | [phone] | | [facility] | | [address] | | | - LABORATORY | | [...] | | | | | | [facility] | | [...] | | | FILTRATION | mL/min/1.73m2 | [facility] | | | [place] | RATE,ESTIMATED | | MEDICAL | | | | mL/min/1.98v4Hopa than | | CENTER - | | [...] [address] | [place] | [phone] | | [facility] | | [address] | | | - LABORATORY | | [...] | | Monocytes | | K/uL | [facility] | [...] | Basophils | | K/uL | [facility] | [...] + | [facility] | [address] | [place] | [phone] | | [facility] | | [address] | | | - LABORATORY | | [...] + | [facility] | [address] | [place], [place] | [phone] | | [facility] | | [address] | | | - LABORATORY | | [...] + | [facility] | [address] | [place] | [phone] | | [facility] | | [address] | | | - LABORATORY | | [...] | | | | FLORY العلي MD ([id number]) | | | | | | on [...] + | [facility] | [address] | [place] | [phone] | | [facility] | | [address] | | | - LABORATORY | | [...] [address] | [place] | [phone] | | [facility] | | [address] | | | - LABORATORY | | | | + + + + + Troponin I (10/04/2017 2:43 PM PST) + + + + + + | Component | Value | Ref Range | Performed | Pathologist | | | | | At | Signature | + + + + + + | Troponin I | 9.32 ()Comment: | <0.06 ng/mL | [facility] | [...] | | | | | results. [employer] | | | | | | [employer] [...] [address] | [place] | [phone] | | [facility] | | [address] | | | - LABORATORY | | [...] PS+ 10, PEEP +5, 40%, ETCO2 35 EIB600% | [facility] | | | [facility] | | | [facility] | | | - LABORATORY | + + + + + + + + | Performing | Address | City/State/Zipcode | Phone Number | | Organization | | | | + + + + + | [facility] | [address] | [place] | [phone] | | [facility] | | [address] | | | - LABORATORY | | [...] + | [facility] | [address] | [place] | [phone] | | [facility] | | [address] | | | - LABORATORY | | | | + + + + + CBC with Differential (10/04/2017 3:45 AM PST) + + + + + + | Component | Value | Ref Range | Performed | Pathologist | | | | | At | Signature | + + + + + + | WBC | 10.5 | 4.0 - 11.0 K/uL | [facility] | | | | | [...] | | Monocytes | | K/uL | [facility] | | | | | | MEDICAL | | | | | | CENTER - | | | | | | LABORATORY | | + + + + + + | Absolute | 0.00 | 0.00 - 0.40 | [facility] | | | Eosinophils | | K/uL | [facility] | | | | | | MEDICAL | | | | | | CENTER - | | | | | | LABORATORY | | + + + + + + | Absolute | 0.00 | 0.00 - 0.10 | [facility] | | | Basophils | | K/uL | [facility] | [...] + | [facility] [facility] | [address] | [place] | [phone] | | [facility] | | [address] | | | - LABORATORY | | [...] [facility] | | | | | | [facility] [...] ST. | [address] | [place], [place] | [phone] | | [facility] | | [address] | | | - LABORATORY | | [...] not | 58 (L)Comment: | >=60 | [facility] | | | | GLOMERULAR FILTRATION | mL/min/1.73m2 | [facility] | | | [place] | RATE,ESTIMATED | | MEDICAL | | | | mL/min/1.95x6Cbfj than | | CENTER - | | [...] | ine Ratio | | | [facility] | | | | | | MEDICAL [...] [address] | [place] | [phone] | | [facility] | | [address] | | | - LABORATORY | | [...] | | | | | results. [employer] | | | | | | [employer] [...] + + | Performing | Address | City/State/[facility] | Phone Number | | Organization | | | | + + + + + | [facility] | [address] | [place] | [phone] | | [facility] | | [address] | | | - LABORATORY | | [...] [address] | [place] | [phone] | | [facility] | | [address] | | | - LABORATORY | | [...] [facility] | | | | | | [facility] | | | | [...] | | GLOMERULAR FILTRATION | mL/min/1.73m2 | [facility] | | | [place] | RATE,ESTIMATED | | MEDICAL | | | | mL/min/1.69v9Afeq than | | CENTER - | | [...] | | | | | mg/dL | [facility] | | | | | | MEDICAL [...] [address] | [place] | [phone] | | [facility] | | [address] | | | - LABORATORY | | [...] [address] | [place] | [phone] | | [facility] | | [address] | | | - LABORATORY | | | | + + + + + Troponin I (10/03/2017 3:45 PM PST) + + + + + + | Component | Value | Ref Range | Performed | Pathologist | | | | | At | Signature | + + + + + + | Troponin I | 25.23 (HH)Comment: | <0.06 ng/mL | [facility] | | [...] The | | | | | | [employer] | | | | | [...] ST. | [address] | [place], [place] | [phone] | | [facility] | | [address] | | | - LABORATORY | | [...] TIMEOUT Before start of procedure done: Yes SPRINKLING SYSTEM INSTALLER: Delmer | | | Mila Gomez M.D., [...] Right femoral artery 6 | | | Fijian CLOSURE DEVICE:. Sheath left in place as [...] | | | technique and a 6 Fijian sheath was inserted. Selective coronary | | | arteriography was performed using 6 Fijian Kymberly right 4 and left 4 | [...] | | will transfer the patient to [place] for consideration of urgent | | | coronary revascularization. Delmer Gomez M.D., | | | Nora.Interventional CardiologistNorthwest Rural Health Network | | | [place], [place] | | | | | |CIRCUMFLEX ARTERY: [...] will transfer | | |the patient to [place] for consideration of urgent coronary | | |revascularization. | | | | | |Delmer Gomez M.D., FHerreraC. | | |Lumber Straightened | | |[facility] | | |[place] | | | | | | | [...] + | [facility] | [address] | [place] | [phone] | | [facility] | | [address] | | | - LABORATORY | | [...] MD | | | | | | ([id number]) on 10/04/2017 | | | | | [...] ST. | [address] | [place], [place] | [phone] | | [facility] | | [address] | | | - LABORATORY | | [...] | | | incubation. | | [facility] | | | [...] + | [facility] | [address] | [place] | [phone] | | [facility] | | [address] | | | - LABORATORY | | [...] [address] | [place] | [phone] | | [facility] | | [address] | | | - LABORATORY | | [...] ST. | [address] | [place] | [phone] | | [facility] | | [address] | | | - LABORATORY | | [...] | | | | | | [employer] | | | | | [...] [address] | [place] | [phone] | | [facility] | | [address] | | | - LABORATORY | | | | + + + + + B Type Natriuretic Peptide (10/03/2017 11:29 AM PST) + +---------+ + + + | Component | Value | Ref Range | Performed | Pathologist | | | | | At | Signature | + +---------+ + + + | BNP | 495 (H) | <100 pg/mL | [facility] | | | | | | [facility] | | [...] + | [facility] | [address] | [place] | [phone] | | [facility] | | [address] | | | - LABORATORY | | [...] | bulin Ratio | | | [facility] | | | | | | MEDICAL | | | | | | CENTER - | | | | | | LABORATORY | | + +--------+ + + + | Bilirubin, | 0.20 | 0.00 - 0.20 | [facility] | | | Direct | | mg/dl | [facility] | | | | [...] [address] | [place] | [phone] | | [facility] | | [address] | | | - LABORATORY | | | | + + + + + Jimenaime GENARO (10/03/2017 11:29 AM PST) + + + [...] | | Anticoagulation Range: | | [facility] | | | | 2.0 - 3.0High [...] + | [facility] | [address] | [place] | [phone] | | [facility] | | [address] | | | - LABORATORY | | [...] not | 46 (L)Comment: | >=60 | [facility] | | | | GLOMERULAR FILTRATION | mL/min/1.73m2 | [facility] | | | [place] | RATE,ESTIMATED | | MEDICAL | | | | mL/min/1.39d4Lblc than | | CENTER - | | [...] 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 WILBERT VANCE LORENZO | | | Age 61 year(s) Interpreting DELMER | | | Mila GOMEZ MD, | | | Pad Cutter [facility] Gender Male | | | Nurse Stress | | | Hardwood Finisher Procedure Type of Study TTE procedure: ECHO [...] Signature | | | | | | PM | | | [...] Volume: 42.65 ml | | | EF Frievwhzx12% Left | | | Ventricle Diastolic Dimension: [...] | Electronically signed by DELMER GOMEZ MD, [facility](Interpreting | | | physician) on 10/03/2017 12:59 [...] Volume: 42.65 ml | | | EF Jdbhdebte34% | | | | | | Left [...] + | Clayton Cortes Results In - 10/03/2017 1:00 PM PST Transthoracic Echocardiography Report | | (TTE) Demographics Patient Name MIKE VELASQUEZ Room Number 458 | | J Patient [id number] Date of Study 10/03/2017 Number Visit Number | | [id number] Referring Physician BENEDICT RAYGOZA Number | | Date of 1955 Boat Rigger WILBERT VANCE DEANNELORENZO Age | | 61 year(s) Interpreting DELMER GOMEZ MD, | | Pad Cutter FAC Gender Male 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 TechnicianProcedureType [...] ----- Electronically signed by DELMER GOMEZ MD, [facility](Interpreting physician) on | | 10/03/2017 12:59 | [...] LA Volume: 42.65 ml EF | | Yclmcsjdr42% Left Ventricle Diastolic Dimension: 5.92 cm Septum [...] | Electronically signed by DELMER GOMEZ MD, [facility](Interpreting | | physician) on 10/03/2017 12:59 PM [...] LA Volume: 42.65 ml | | EF Trsyuecfq76% | | | | Left Ventricle | [...] | FiO2 | 100.0 | % | [facility] | | | [...] + | [facility] | [address] | [place] | [phone] | | [facility] | | [address] | | | - LABORATORY | | [...] | chromogenic agar method | | [facility] | | | | | | MEDICAL [...] ST. | [address] | [place], [place] | [phone] | | [facility] | | [address] | | | - LABORATORY | | [...] | | | | Thanh | | [facility] | | | [...] [address] | [place] | [phone] | | [facility] | | [address] | | | - LABORATORY | | [...] | | | PCR | | | [facility] | | | | | | MEDICAL [...] + | [facility] | [address] | [place], [place] | [phone] | | [facility] | | [address] | | | - LABORATORY | | | | + + + + + Campylobacter Ag,Qual (10/03/2017 10:39 AM PST) + + + + + + | Component | Value | Ref Range | Performed | Pathologist | | | | | At | Signature | + + + + + + | Campylobact | Negative | Negative | [facility] | | | er AG, Qual | | | [facility] | | [...] [address] | [place] | [phone] | | [facility] | | [address] | | | - LABORATORY | | [...] | | Consistent with usual | | [facility] | | | | enteric thanh. | [...] + | [facility] | [address] | [place] | [phone] | | [facility] | | [address] | | | - LABORATORY | | [...] | | | 1 | | | [facility] | | | | | | MEDICAL | | | | | | CENTER - | | | | | | LABORATORY | | + + + + + + | Shigatoxin | Negative | Negative | [facility] | | | 2 | | | [facility] | | [...] + + + + + | [facility] | [address] | [place] | [phone] | | [facility] | | [address] | | | - LABORATORY | | [...] | Negative for toxigenic | | [facility] | | | GDH Antigen | Clostridium difficile | | MEDICAL | | | | | | CENTER - | | | | | | LABORATORY | | + + + + + + | C. Diff | Negative | Negative | [facility] | | | Toxin A/B | | | [facility] | | | EIA | | | [...] [address] | [place] | [phone] | | [facility] | | [address] | | | - LABORATORY | | [...] + | Performed at: 01 - [facility] [address] | REFERENCE LAB | | [id number] Polytechnic Teacher: Yesenia Gee MD, Phone: [phone] | [facility] | + + + + + + + + | Performing | Address | City/State/Zipcode | Phone Number | | Organization | | | | + + + + + | REFERENCE LAB | [address] | [place], [place] | [phone] | | [facility] | Desire Kapoor | [address] | | + + + + + [...] + | [facility] | [address] | [place] | [phone] | | [facility] | | [address] | | | - LABORATORY | | [...] | Urine | | Yellow, Straw | [facility] | | | | [...] - 1.030 | [facility] | | | [place], | | | [facility] | | [...] 0-2 | 0 - 2 /LPF | [facility] | | | Seth, | | | [facility] | | | Urine | | | [...] [address] | [place] | [phone] | | [facility] | | [address] | | | - LABORATORY | | [...] + + | Acute upper GI bleeding Hemorrhage of gastrointestinal tract, unspecified | + + documented in this encounter Admitting Diagnoses + + [...] | | | | First dose on [facility] 10/03/17 at | | AM PST | [...] | | | | First dose on [facility] 10/08/17 at 0915 | | | | [...] 2 g in | New Bag | 10/10/19 | 2 g | 100 | | [...] scheduled: AC, | | | NPO, Daytime 9454-0551 Use NIGHT | | | DOSE for doses scheduled: | | | HS, 3AM, Nighttime 8889-5043, | | + +---+ | | | [...]
--- OUTSIDE RECORDS SUMMARY | ~2020-03-04 | XMS | Encounter Summary ---
Demographics + + + | Address | [address] | | | [place] [address] | + + + | Home Phone [...] [place], [place] | | | | | [address] | | + + + + + Care Team Providers + +------+ + | Care Heat Treat Furnace Operator Name | Role | Phone | [...] + + | 11/19/ | Office | [facility] | Randy Figueroa, | Ischemic | | 2018 | Visit | MED CTR CARD[facility] | MD [address] | cardiomyopathy | | | | REHABILITATION [address] | [facility] [facility], | (Primary Dx) | | | | [address] [place] | [place] [address] | | | | | [place] [address] | [phone] | | | | | [phone] | | | +--------+---------+ + + + [...] Gael Ortega - 11/19/2017 9:00 AM PDT [facility]ITATION [address] [facility] [address] Cardiac Rehab Date: 11/19/2017 Patient Information Patient [...] en ded up in the hospital in [place], [place]. Spent multiple days there. Any abnormal [...] | | | | | | W [facility] | | | | | | [address] [place] | | | | | | [address] | | | | | | | | +--------+ + + + + | 04/16/ | Office | Cardiology | MonicaAlin beaulieu | | | 2019 | Visit | | MD [address] | | | | | | [address] | | | | | | [place] [address] | | | | | | [phone] | | | | | | | [...] [place] | | | | | | [address] | | | | | | | | +--------+ + + + + documented as of this encounter Visit Diagnoses + + | Diagnosis | + + | Ischemic cardiomyopathy - Primary Other specified forms of chronic ischemic heart | | disease | + + documented in this encounter"
--- OUTSIDE RECORDS SUMMARY | ~2020-03-04 | XMS | Encounter Summary ---
Demographics + + + | Address | [address] | | | [place] [address] | + + + | Home Phone [...] [place] | | | | | [address] | | + + + + + Care Team Providers + +------+ + | Care Soc Analyst Name | Role | Phone | [...] | 12/12/ | Refill | [facility] [place] | Jenny, | Medication Refill | | 2020 | | CARDIOLOGY [address] | ADARSH [address] | | | | | [place], | [place], | | | | | [place] [address] | [place] [address] | | | | | [phone] | | | | | | | [...] [place] | | | | | | [address] | | | | | | | | +--------+ + + + + | 04/16/ | Office | Cardiology | Alin Anderson | | | 2019 | Visit | | MD [address] | | | | | | [address] | | | | | | [place] [address] | | | | | | [phone] | | | | | | | [...] [place] | | | | | | [address] | | | | | | | | +--------+ + + + + documented as of this encounter Visit Diagnoses Not on filedocumented in this encounter"
--- OUTSIDE RECORDS SUMMARY | ~2020-03-04 | XMS | Encounter Summary ---
Demographics + + + | Address | [address] | | | [place] [address] | + + + | Home Phone [...] [place] | | | | | [address] | | + + + + + Care Team Providers + +------+ + | Care Cereal Popper Name | Role | Phone | + [...] | | | Coronary | Jenny, | [address] | | | | | artery | [place] [address] | [place], | | | | | disease | [address] | [place] | | | | | involving | [place] | [address] | | | | | [place] | [place], | Phone: | | | | | coronary | [place] | [phone] | | | | | artery of | [address] | Fax: | | | | | [place] heart | Phone: | [phone] | | | | | without | [phone] | | | | | | angina | Fax: | | | | | | pectoris | [phone] | | | | | | Acute | | | | | | | anterior | | | | | | | wall PR | | | | | | | ([facility]) | | | | | | | Procedures | | | | | | | ECHO | | | | | | | Complete | | | +--------+--------+ + + + + Reason for Visit +--------+--------+ + | Reason | Onset | Comments | | | Date | | +--------+--------+ + | Other | 03/29/ | | | | 2018 | | +--------+--------+ + Encounter Details +--------+ + + + + | Date | Type | Department | Care Team | Description | +--------+ + + + + | 03/29/ | Telephone | [facility] [place] | Jenny, | Other | | 2019 | | CARDIOLOGY [address] | ADARSH Santo [address] | | | | | [place], | [place], | | | | | [place] [address] | [place] [address] | | | | | [phone] | | | | | | | [...] Telephone Encounter - Cathi Stockton RN - 03/29/2019 9:00 AM PDTSpoke to mary carmen Pulido him that echo needs be scheduled. Patient scheduled for Echo Thursday04/18/19 @ 10am. ...... .....................................Cathi Stockton RN on 03/29/19 at 9:06 documented in this encounter Plan of Treatment [...] | | | | | [place] [address] | | | | | | [phone] | | | | | | | [...] [place] | | | | | | [address] | | | | | | | | +--------+ + + + + documented as of this encounter Results ECHO Complete (04/18/2019 10:37 AM PDT) + +---------+ + + + | Component | Value | Ref Range | Performed | Pathologist | | | | | At | Signature | + +---------+ + + + | Patient | 197 lbs | | [facility] | | | Weight | | | | | | (lbs) | | | | | + +---------+ + + + | Patient | 5'9 | | [facility] | | | Height | | | | | + +---------+ + + + | LVIDd | 6.42 | cm | [facility] | | + +---------+ + + + | FS | 18 | % | [facility] | | + +---------+ + + + | LA volume | 126.68 | mL | [facility] | | + +---------+ + + + | Ascending | 3.37 | cm | [facility] | | | aorta | | | | | + +---------+ + + + | AV mean | 1.93 | mmHg | [facility] | | | gradient | | | | | + +---------+ + + + | IVRT | 69.2 | msec | [facility] | | + +---------+ + + + | LVOT peak | 96.08 | cm/s | [facility] | | | hasmukh | | | | | + +---------+ + + + | LVOT peak | 17.54 | cm | [facility] | | | VTI | | | | | + +---------+ + + + | AV peak hasmukh | 107.94 | cm/s | [facility] | | + +---------+ + + + | AV VTI | 20.14 | cm | [facility] | | + +---------+ + + + | MR max hasmukh | 290.73 | cm/s | [facility] | | + +---------+ + + + | AV peak | 4.66 | mmHg | [facility] | | | gradient | | | | | + +---------+ + + + | LA Volume | 62 | mL/m2 | [facility] | | | Index | | | | | + +---------+ + + + | AV LVOT | 3.69 | mmHg | [facility] | | | Peak | | | | | | Gradient | | | | | + +---------+ + + + | AV LVOT | 1.56 | mmHg | [facility] | | | Mean | | | | | | Gradient | | | | | + +---------+ + + + | TR Peak | 41 | mmHg | [facility] | | | Gradient | | | | | + +---------+ + + + | TR Velocity | 319.02 | cm | [facility] | | + +---------+ + + + | LV | 9.67 | cm | [facility] | | | Diastolic | | | | | | Length 4C | | | | | + +---------+ + + + | LV | 28 | % | [facility] | | | Landry's | | | | | | Biplane EF | | | | | + +---------+ + + + | LV ED | 188.9 | ml | [facility] | | | Volume | | | | | | (Landry's) | | | | | + +---------+ + + + | LV ED | 92 | ml/m2 | [facility] | | | Volume | | | | | | Index | | | | | + +---------+ + + + | LV ES | 135.85 | ml | [facility] | | | Volume | | | | | + +---------+ + + + | LVOT Mean | 54.5 | cm/s | [facility] | | | Velocity | | | | | + +---------+ + + + | MV E' | 3 | cm/s | [facility] | | | Septal | | | | | | Velocity | | | | | + +---------+ + + + | MV | 746.18 | cm/s2 | [facility] | | | Deceleratio | | | | | | n Antelope | | | | | + +---------+ + + + | MV | 154.49 | msec | [facility] | | | Deceleratio | | | | | | n Time | | | | | + +---------+ + + + | MV E/A | 4.76 | | [facility] | | | Ratio | | | | | + +---------+ + + + | MV Peak | 24.24 | cm/s | [facility] | | | A-Wave | | | | | + +---------+ + + + | MV Peak | 115.28 | cm/s | [facility] | | | E-Wave | | | | | + +---------+ + + + | AV Mean | 64.68 | cm/s | [facility] | | | Velocity | | | | | + +---------+ + + + | LA/Aorta | 1.83 | | [facility] | | | Ratio | | | | | + +---------+ + + + | LA Area | 30 | cm2 | [facility] | | + +---------+ + + + | MV E/E | 38.43 | | [facility] | | | SEPTAL | | | | | + +---------+ + + + | LA Major | 0.2014 | cm | [facility] | | + +---------+ + + + | LV ES | 66 | ml/m2 | [facility] | | | Volume | | | | | | Index | | | | | + +---------+ + + + | Aortic Root | 2.89 | cm | [facility] | | | Diameter | | | | | + +---------+ + + + | IVS | 1.17 | cm | [facility] | | | Diastolic | | | | | | Thickness | | | | | | MM | | | | | + +---------+ + + + | LVPW | 1.1 | cm | [facility] | | | Diastolic | | | | | | Thickness | | | | | | MM | | | | | + +---------+ + + + | IVS | 1.27 | cm | [facility] | | | Systolic | | | | | | Thickness | | | | | | MM | | | | | + +---------+ + + + | LV Systolic | 5.24 | cm | [facility] | | | Diameter | | | | | | MM | | | | | + +---------+ + + + | LVPW | 1.31 | cm | [facility] | | | Systolic | | | | | | Thickness | | | | | | MM | | | | | + +---------+ + + + | AV Cusp | 1.95 | cm | [facility] | | | Seperation | | | | | | MM | | | | | + +---------+ + + + | LA Systolic | 5.3 | cm | [facility] | | | Diameter | | | | | | MM | | | | | + +---------+ + + + | TAPSE | 2.2 | cm | [facility] | | + +---------+ + + + | LVEF-TTE | 25 | % | [facility] | | | TRANSTHORAC | | | | | | IC ECHO | | | | | + +---------+ + + + | RA PRESSURE | 3 | mmHg | [facility] | | + +---------+ + + + | RVSP | 44 | mmHg | [facility] | | | Estimated | | | | | + +---------+ + + + + + | Specimen | + + | | + + + + + | Narrative | Performed At | + + + | 1. Moderate | [facility] | | biatrial dilatation.2. Moderate left ventricular dilatation with a | | | mild eccentric left ventricular hypertrophy. There is a segmental | | | wall motion and normality with severe hypokinesis of the entire | | | anterior and anteroseptal region. Overall, left ventricular systolic | | | function is severely reduced. LVEF is 25 to 30%.3. Grade 2 left | | | ventricular diastolic dysfunction.4. Mildly thickened and calcified | | | mitral valve suggesting myxomatous change. There is evidence of a | | | moderate to severe central functional mitral valve regurgitation.5. | | | Moderate tricuspid valve regurgitation.6. Mild pulmonary | | | hypertension with a peak systolic pressure of 45 to 50 mmHg.7. | | | Normal IVC with a normal respiratory collapse.8. Device lead in | | | the right ventricle.9. When compared echocardiography on 04/05/2018, | | | left ventricular cystic function continues to deteriorate. | | |8. Device lead in the right ventricle. | | |9. When compared echocardiography on 04/05/2018, left ventricular cystic | | |function continues to deteriorate. | | + + + + +---------+ + + | Performing | Address | City/State/Zipcode | Phone Number | | Organization | | | | + +---------+ + + | [facility] | | | | + +---------+ + + documented in this encounter Visit Diagnoses + + | Diagnosis | + + | Coronary artery disease involving [place] coronary artery of [place] heart without | | angina pectoris - Primary | + + | Acute anterior wall PR (HCC) Acute myocardial infarction of other anterior wall, | | episode of care unspecified | + + documented in this encounter"
--- OUTSIDE RECORDS SUMMARY | ~2020-03-04 | XMS | Encounter Summary ---
Demographics + + + | Address | [address] | | | [place] [address] | + + + | Home Phone [...] [place] | | | | | [address] | | + + + + + Care Team Providers + +------+ + | Care Piano Technician Name | Role | Phone | [...] | | | heart | [place], | [place] | | | | | failure | [place] [address] | [place] | | | | | (HCC) | Phone: | [address] | | | | | I50.22 | [phone] | Phone: | | | | | Procedures | Fax: | [phone] | | | | | Cardiac | [phone] | Fax: | | | | | Rehab | | [phone] | +--------+--------+ + + + + Encounter Details +--------+---------+ + + + | Date | Type | Department | Care Team | Description | +--------+---------+ + + + | 06/09/ | Office | [facility] | Amy Olivares V, | Chronic systolic CHF | | 2019 | Visit | [facility] | MD [address] | (congestive heart | | | | REHABILITATION [address] | [address] [place], [place] | failure) ([facility]) | | | | [address] [place] | [id number] | | | | | [place] [address] | | | | | | [phone] | | | +--------+---------+ + + + [...] encounter Patient Instructions Patient Instructions Kathy Garcia, BARRON - 06/09/2019 12:00 PM PDT documented in this encounter Progress Notes Kathy Garcia, BARRON - 06/09/2019 12:00 PM PDTFormatting of this note might be different f rom the original. [facility] [address] [place] [address] Cardiac Rehab Date: 06/09/2019 Patient Information Patient Name: Bob Will Date of : 1955 Age: 63 y.o. Encounter Diagnoses Code Name Primary? I50.22 Chronic systolic CHF (congestive heart failure) (HCC) Number of Visits Approved: 27 Taken Medications [...] Duration: Electronically signed by: Kathy Garcia RRT, 06/09/2019 12:57 Patient Name: Bob Will/: 1955/ documented in this encounter Plan of Treatment +--------+ + + + + | Date | Type | Specialty | Care Team | Description | +--------+ + + + + | 03/12/ | Office | Nephrology | Litzy, | | | 2019 | Visit | | ADARSH [address] | | | | | | [address] | | | | | | [address] [place] | | | | | | [address] | | | | | | | | +--------+ + + + + | 04/16/ | Office | Cardiology | Alin Anderson | | | 2019 | Visit | | MD Cheryl Arreg[address] | | | | | | [address] | | | | | | [place] [address] | | | | | | [phone] | | | | | | | [...] [place] | | | | | | [address] | | | | | | | | +--------+ + + + + documented as of this encounter Visit Diagnoses + + | Diagnosis | + + | Chronic systolic CHF (congestive heart failure) (HCC) | + + documented in this encounter"
--- OUTSIDE RECORDS SUMMARY | ~2020-03-04 | XMS | Encounter Summary ---
Demographics + + + | Address | [address] | | | [place] [address] | + + + | Home Phone [...] [place] | | | | | [address] | | + + + + + Care Team Providers + +------+ + | Care Director Clinical Pharmacology Name | Role | Phone | + +------+ + | Amy Olivares MD | PCP | | + +------+ + Reason for Visit + + + | Reason | Comments | + + + | Device Check | MDT STRUCTURAL STEEL WORKER HELPER-D in office w/ zohaib | | (In-office) | | + + + Encounter Details +--------+ + + + + | Date | Type | Department | Care Team | Description | +--------+ + + + + | 07/25/ | Procedure | [facility] | | STRUCTURAL STEEL WORKER HELPER-D (AICD) | | 2019 | visit | CARDIOLOGY [place] | | [employer] 10/16/17 | | | | [address] | | [address] | | | | [place], [place] | | (Primary Dx) | | | | [address] | | | | | | [phone] | | | +--------+ + + + [...] + documented as of this encounter Procedure Elsa Johnson, Mortgage Loan Officer - 07/25/2019 2:30 PM PSTAssociated Order(s): DEVICE INT ERROGATIONProcedure(s): DEVICE INTERROGATIONPre-Procedure Diagnose(s): Biventricular ICD (im plantable cardioverter-defibrillator) in placeDevice interrogation done by Teresita Anderson Any events or changes listed in office note. See device data attached to scheduled encounter for additional details. mica parts sprayer: Elsa Romero, [facility] Clinic documented in [...] F | | | | | | [place] [address] | | | | | | [phone] | | | | | | | | +--------+ + + + + | 04/16/ | Procedure | Cardiology | | | | 2019 | visit | | | | +--------+ + + + + | 04/25/ | Office | Cardiology | Rocio Pearl, | | | 2019 | Visit | | MD [address]yl [address] | | | | | | [place], [place] | | | | | | [address] | | | | | | | | +--------+ + + + + documented as of this encounter Procedures + +--------+ + + + | Procedure Name | Priori | Date/Time | Associated Diagnosis | Comments | | | ty | | | | + +--------+ + + + | DEVICE INTERROGATION | Routin | 07/26/2019 | STRUCTURAL STEEL WORKER HELPER-D ([facility]) | Results for this | | | e | 12:00 AM | [employer] 10/16/17 | procedure are in the | | | | PST | [facility] [place] | results section. | + +--------+ + + + documented in this encounter Results Device Interrogation (07/26/2019 12:00 AM PST) + + + | Narrative | Performed At | + + + | Elsa Wilson | DONNA | | Nick Mortgage Loan Officer 07/26/2019 8:15 AMDevice | | | interrogation done by Teresita Anderson Any events or changes listed in | | | office note. See device data attached to scheduled encounter for | | | additional details. mica parts sprayer: Elsa Romero [facility] | | |See device data attached to scheduled encounter for additional | | |details. | | | | | |mica parts sprayer: Elsa Romero [facility] | | + + + + + | Procedure Note | + + | Elsa Romero, Mortgage Loan Officer - 07/25/2019 2:30 PM PST Device interrogation | | done by Teresita Ponce events or changes listed in office note.See device data attached | | to scheduled encounter for additional details. mica parts sprayer: Elsa Romero [facility] | | | |See device data attached to scheduled encounter for additional details. | | | |mica parts sprayer: Elsa Romero [facility] | + + + +---------+ + + | Performing | Address | City/State/Zipcode | Phone Number | | Organization | | | | + +---------+ + + | [facility] | | | | + +---------+ + + documented in this encounter Visit Diagnoses + + | Diagnosis | + + | ASHLEY Diallo (AICD) 10/16/17 E[facility]OG[address] [place] - Rigoberto | + + documented in this encounter"
--- OUTSIDE RECORDS SUMMARY | ~2020-03-04 | XMS | Encounter Summary ---
Demographics + + + | Address | [address] | | | [place] [address] | + + + | Home Phone [...] [place], [place] | | | | | [address] | | + + + + + Care Team Providers + +------+ + | Care Char Conveyor Tender Name | Role | Phone | [...] | | involving | [address] | [place] | | | | | [place] | [place] | [place] | | | | | coronary | [address] | [address] | | | | | artery of | Phone: | Phone: | | | | | [place] heart | [phone] | [phone] | | | | | without | Fax: | Fax: | | | | | angina | [phone] | [phone] | | | | | pectoris | | | +--------+ + + + + + Encounter Details +--------+---------+ + + + | Date | Type | Department | Care Team | Description | +--------+---------+ + + + | 12/02/ | Office | [facility] | Randy Figueroa, | Coronary artery | | 2019 | Visit | MED CTR CARDIAC | MD [address] | disease involving | | | | REHABILITATION [address] | [place], | [place] coronary | | | | [place] | [place] [address] | artery of [place] | | | | [place] [address] | [phone] | heart without angina | | | | [phone] | | pectoris (Primary | | | [...] Gael Ortega - 12/02/2018 10:00 AM PDT [facility] CARDIAC REHABILITATION [address] [place] [address] Cardiac Rehab Date: 12/02/2018 Patient Information Patient Name: Bob Will Date of : 1955 Age: 63 y.o. Encounter Diagnoses Code Name Primary? I25.10 Coronary artery disease involving [place] coronary artery of [place] heart without angina pectoris Yes Z98.61 Post [...] [place] | | | | | | [address] | | | | | | | | +--------+ + + + + | 04/16/ | Office | Cardiology | Alin Anderson | | | 2019 | Visit | | MD Cheryl Arreg[address] | | | | | | [address] | | | | | | [place] [address] | | | | | | [phone] | | | | | | | [...] [place] | | | | | | [address] | | | | | | | | +--------+ + + + + documented as of this encounter Visit Diagnoses + + | Diagnosis | + + | Coronary artery disease involving [place] coronary artery of [place] heart without | | angina pectoris - Primary | + + | Post PTCA Postsurgical percutaneous transluminal coronary angioplasty status | + + documented in this encounter"
--- OUTSIDE RECORDS SUMMARY | ~2020-03-04 | XMS | Encounter Summary ---
Demographics + + + | Address | [address] | | | [place] [address] | + + + | Home Phone [...] [place] | | | | | [address] | | + + + + + Care Team Providers + +------+ + | Care Deli Cutter Slicer Name | Role | Phone | + [...] | RN | | | | | [place], | | | | | | [place] [address] | | | | | | [phone] | | | +--------+ + + + [...] 07/15/2018 11:47 AM PSTIncreased by provider in [place] to 1 tablet daily. documented in this [...] [place] | | | | | | [address] | | | | | | | | +--------+ + + + + | 04/16/ | Office | Cardiology | Alin Anderson | | | 2019 | Visit | | MD Cheryl Arreguin | | | | | | [address] | | | | | | [place] [address] | | | | | | [phone] | | | | | | | [...] [place] | | | | | | [address] | | | | | | | | +--------+ + + + + documented as of this encounter Visit Diagnoses Not on filedocumented in this encounter"
--- OUTSIDE RECORDS SUMMARY | ~2020-03-04 | XMS | Encounter Summary ---
Demographics + + + | Address | [address] | | | [place] [address] | + + + | Home Phone [...] [place] | | | | | [address] | | + + + + + Care Team Providers + +------+ + | Care Audiology Assistant Name | Role | Phone | + +------+ + | Amy Oliavres MD | PCP | | + +------+ [...] Description | +--------+---------+ + + + | 10/20/ | Office | [facility] | Amy Olivares V, | Chronic systolic CHF | | 2020 | Visit | [facility] | MD [address] | (congestive heart | | | | REHAB[address]ATION [address] [place], [place] | failure) ([facility]) | | | | [address] | [address] | (Primary Dx) | | | | [place] [address] | | | | | | [phone] | | | +--------+---------+ + + + [...] this encounter Progress Notes Gael Woo - 10/20/2019 9:00 AM PSTPatient tolerated exercise session without [...] [place] | | | | | | [address] | | | | | | | | +--------+ + + + + | 04/16/ | Office | Cardiology | Alin Anderson | | | 2019 | Visit | | MD Cheryl Arreguin | | | | | | [address] | | | | | | [place] [address] | | | | | | [phone] | | | | | | | [...] [place] | | | | | | [address] | | | | | | | | +--------+ + + + + documented as of this encounter Visit Diagnoses + + | Diagnosis | + + | Chronic systolic CHF (congestive heart failure) (HCC) - Primary | + + documented in this encounter"
--- OUTSIDE RECORDS SUMMARY | ~2020-03-04 | XMS | Encounter Summary ---
Demographics + + + | Address | [address] | | | [place] [address] | + + + | Home Phone [...] [place], [place] | | | | | [address] | | + + + + + Care Team Providers + +------+ + | Care Java Developer Consultant Name | Role | Phone | + +------+ + PCP | Unavailable | + +------+ + Encounter Details +--------+ + + + + | Date | Type | Department | Care Team | Description | +--------+ + + + + | 07/09/ | Emergency | [facility] | Monse Mac MD | Acute anterior wall | | 2017 | | [facility] | [address] | [place] ([facility]) | | | | CENTER [address] | [place], [place] | | | | | [place], [place] | [address] | | | | | [address] | | | | | | [phone] | | | +--------+ + + + [...] Anton Mac MD ADMITTING DIAGNOSIS: Acute Anterior OR DISPOSITION: Transfer to [facility] for CABG BRIEF HOSPITAL COURSE: [...] s tented and he was transported to [facility] via air ambulance., Electronically signed by Monse Mac MD at 7 10:33 AM PDTdocumented in this encounter Progress Notes Van Rodriges RN - 03/15/2017 8:33 AM PDTSee cardiac cath lab technologist print out. For vitals etc..Alia ctronically signed [...] pain and went to the ER in [facility] where the EKG showed ant OR and he was transported here via air [...] is listed above. OBJECTIVE: PHYSICAL EXAM HR=55; KD=718/80 HEENT--unremarkable; Obese; ERNIE. CV--RRR with distant HS; No mgr Lungs---clear Abd---obese Ext--no edema. ECG: NSR; Acute Anterior OR. LAB RESULTS: Pending. ASSESSMENT: AMI PLAN: Emergent [...] PROVIDER: No primary care provider on file. COUPON MANIFEST CLERK: Dr. Monse Mac MD PRE-PROCEDURE DIAGNOSIS: Acute Anterior OR POST-PROCEDURE DIAGNOSIS: Same PROCEDURES PERFORMED: 1. Coronary [...] was performed in multiple views using 5 Nigerien TIG and JR diagnostic catheters. After review [...] not able to transfer the patient expediently ([facility] did not have beds; [place] surgeons were busy with their own complications; finally [facility] accepted the patient but then [...] ostial LCx. He was then transported to [facility] very serious condition on multiple [...] not able to transfer the patient expediently ([facility] did not have beds; [facility] red Heart surgeons were busy with their own complications; finally [facility] accepted the patient but then [...] ostial LCx. He was then transported to [facility] in very serious condition on multiple drips and IAPB---discussion with the family was car ried to regarding his poor medical condition and the fact that he would probably not going t o survive this hospitalization. Monse Mac MD [facility] DATE/TIME: 03/15/2017 10:05 03/15/2017 10:05 Ron [...] in appropriate position Patient was in the cardiac cath lab technologist when I was called for emergency intubation on the patient. Teresita gonzalez was found to have left main disease and initially had been coded in the cardiac cath lab technologist and th ey had shocked him once. Patient was pending [...] Care was turned over back to the arbor press operator that is managing this patient 's case. Critical care time for this patient was approximately 45 minutes excluding intubationElectr onically signed by Ron Hawkins MD at 03/15/2017 9:23 AM PDTdocumented in th is encounter Miscellaneous Notes Goals of Richar - Van Rodriges RN - 03/15/2017 8:31 AM PDTLifeflight team received re port from laborer mine team. 8:3 2 AM PDTGoals Van Nelson RN - 03/15/2017 8:04 AM PDTUpdated , regard ing pt condition. Advised her to come to [facility] and if pt leaves for [place] prior to her ar rival I will divert her. oals Van Nelson RN - 03/15/2017 7:29 AM PDTSpoke again with life flight. Fixed wing coming from [place] 45min, and 38n min for helicopter crew. [...] [place] | | | | | | [id number] | | | | | | | | +--------+ + + + + | 04/16/ | Office | Cardiology | Alin Anderson | | | 2019 | Visit | | MD [address] | | | | | | [address] | | | | | | [place] [address] | | | | | | [phone] | | | | | | | | +--------+ + + + + | 04/16/ | Procedure | Cardiology | | | | 2019 | visit | | | | +--------+ + + + + | 04/25/ | Office | Cardiology | Rocio Pearl, | | | 2020 | Visit | | MD [address] | | | | | | [place] | | | | | | [address] | | | | | | | [...] | | | : | | | [id number] | | | [id number] | | | ATE OF | | [...] | | | 5 | | | Nigerien | | | TIG | | | [...] | | | 10:057 | | | | | | 7 | [...] | + + | Acute anterior wall OR (HCC) Acute myocardial infarction of other anterior wall, | | episode of care unspecified | + + documented in this encounter
--- OUTSIDE RECORDS SUMMARY | ~2020-03-04 | XMS | Encounter Summary ---
Demographics + + + | Address | [address] | | | [place] [address] | + + + | Home Phone [...] [place], [place] | | | | | [address] | | + + + + + Care Team Providers + +------+ + | Care Senior Paralegal Name | Role | Phone | + [...] Provider Unknown | | | | | [place], [place] | [phone] | | | | | [phone] | (Fax) | | | | | [phone] | | | +--------+ + + + [...] [place] | | | | | | [address] | | | | | | | | +--------+ + + + + | 04/16/ | Office | Cardiology | Alin Anderson | | | 2019 | Visit | | MD Cheryl Arreguin | | | | | | [address] | | | | | | [place] [address] | | | | | | [phone] | | | | | | | [...] [place] | | | | | | [address] | | | | | | | [...]
--- OUTSIDE RECORDS SUMMARY | ~2020-03-04 | XMS | Encounter Summary ---
Demographics + + + | Address | [address] | | | [place] [address] | + + + | Home Phone [...] [place], [place] | | | | | [address] | | + + + + + Care Team Providers + +------+ + | Care Basket Sorter Name | Role | Phone | + [...] | | | | | | | [place] | | | | | | [...] | | | | | [address] | [place] | | | | | [place] | [id number] | | | | | [address] | | | | | | [phone] | | | +--------+---------+ + + + [...] of known severe ischemic CAD/recent ant wall NV in 03/2017 c/b card iogenic shock s/p ECMO in [facility] 4. Paroxysmal atrial flutter Patient Active Problem List Diagnosis Acute anterior wall NV CAD (coronary artery disease) Ischemic cardiomyopathy Pulmonary [...] history of CAD with recent anterior wall NV, post PTCA and st ents of the left main, LAD and LCx on 03/15/17 + left atrial appendage thrombus c/b cardiac sh ock/respiratory failure requiring Tx to [facility]; was on ECMO, who was a transfer [...] Gomez discussed with Luz Maria haynes at [facility] but patient refused to go to [place] for re-vascu larization. He preferred to go to [facility]. Dr. Gomez discussed with Dr. Bedoya at [facility] and he was accepted by him. 1. [...] of known severe ischemic CAD/recent ant wall NV in 03/2017 c/b card iogenic shock s/p ECMO in [facility] - troponin peaked to 26 - WILSON [...] - Dr. Gomez discussed with Cardiology at [facility] and was accepted at [facility] for re-vascularization but patient refused and wanted to be transferred to [facility]. Dr. Gomez discussed with cardiology at [facility] and was accepted by them. - 4. [...] results on DC: None Disposition: Transfer to [facility] cardiology service Dr. Bedoya accepting physician Discharge Procedure Orders Transfer patient to other facility Order Comments: [facility] when bed is available. Code Status/Advance Directive (Pertinent discussions/declarations): Full Code Time spent on Discharge and Coordination of post-hospital care: >30 minutes Electronically signed by: Destinee Trejo, 10/10/2017 15:01 [facility] documented in this en counter Medications at [...] Oneal RN - 10/10/2017 3:55 PM PSTCalled [facility], RN informed that Lotus sabillon to call back this RN, phone number given. Electronically signed by: Rhea carroll RN 10/10/2017 15:58 Rhea Caal RN - 10/10/2017 1:59 PM PSTPatient called RN to bedside, patient to go to [facility], wants to get better and do the [...] The patient will be transferred today to [facility] for coronary revascularization. MEDICATIONS: Current [...] on amiodarone PLAN OR RECOMMENDATIONS: Transfer to [facility] audiology service Dr. Segura accepting physician I appreciate the opportunity of participating in the care of this patient. Delmer Gomez MD, 10/09/2017 15:00 Olga, MD Destinee - 10/09/2017 8:16 AM PST [facility] PMG Hospitalist Progress Note Ron Hood is a 61 y.o. male INTERVAL HPI: He is a 61 y.o. male with a history of CAD with recent anterior wall NV, post PTCA and sten ts of the left main, LAD and LCx on 03/15/17 + left atrial appendage thrombus c/b cardiac shoc k/respiratory failure requiring Tx to [facility]; was on ECMO, who was a transfer this time from [facility] on 10/03 for acute respiratory failure [...] of known severe ischemic CAD/recent ant wall NV in 03/2017 c/b card iogenic shock s/p ECMO in [facility] - troponin peaked to 26 - WILSON [...] Gomez will consult with cardiology team at [facility] Re: planning for revascularization today [...] as outlined above. Destinee Trejo 10/09/2017 8:16 [facility] Destinee Espinoza MD - 10/08/2017 12:20 PM PST [facility] PMG Hospitalist Progress Note Ron Hood is a 61 y.o. male INTERVAL HPI: He is a 61 y.o. male with a history of CAD with recent anterior wall NV, post PTCA and sten ts of the left main, LAD and LCx on 03/15/17 + left atrial appendage thrombus c/b cardiac shoc k/respiratory failure requiring Tx to [facility]; was on ECMO, who was a transfer this time from [facility] on 10/03 for acute respiratory failure [...] % on high-flow nasal ca nnula, heated, stock blender system at flow rate 14L/min Temp [...] of known severe ischemic CAD/recent ant wall NV in 03/2017 c/b card iogenic shock s/p ECMO in [facility] - troponin peaked to 26 - LHC [...] Gomez will consult with cardiology team at [facility] Re: planning for revascularization today [...] as outlined above. Destinee Trejo 10/08/2017 12:20 [facility] Destinee Espinoza MD - 10/07/2017 2:38 PM PST [facility] PMG Hospitalist Progress Note Ron Hood is a 61 y.o. male INTERVAL HPI: He is a 61 y.o. male with a history of CAD with recent anterior wall NV, post PTCA and sten ts of the left main, LAD and LCx on 03/15/17 + left atrial appendage thrombus c/b cardiac shoc k/respiratory failure requiring Tx to [facility]; was on ECMO, who was a transfer this time from [facility] on 10/03 for acute respiratory failure [...] of known severe ischemic CAD/recent ant wall NV in 03/2017 c/b card iogenic shock s/p ECMO in [facility] - troponin peaked to 26 - WILSON [...] Gomez will consult with cardiology team at [facility] Re: planning for revascularization 4. [...] as outlined above. Destinee Trejo 10/07/2017 14:38 [facility] Delmer Mcmanus MD - 10/07/2017 [...] RECOMMENDATIONS: Continue current medical management We'll contact [facility] regarding transfer and revascularization plann ing [...] orally BID Carlos Graham PharmD 10/07/2017 9:59 [facility] IV TO PO Collaborative Practice Protocol Delmer [...] troponin Will consult with cardiology team at [facility] regarding planning for coronary revascularization prior to discharge home I appreciate the opportunity of participating in the care of this patient. Delmer Gomez MD, 10/06/2017 17:17 unruthie, MD Destinee - 10/06/2017 12:45 PM PST [facility] PMG Hospitalist Progress Note Ron Hood is a 61 y.o. male INTERVAL HPI: He is a 61 y.o. male with a history of CAD with recent anterior wall NV, post PTCA and sten ts of the left main, LAD and LCx on 03/15/17 + left atrial appendage thrombus c/b cardiac shoc k/respiratory failure requiring Tx to [facility]; was on ECMO, who was a transfer this time from [facility] on 10/03 for acute respiratory failure [...] 95 % on high-flow nasal can nula, stock blender system, heated at flow rate 14L/min [...] now present Confirmed by FLORY العلي MD ([id number]) on 10/06/2017 7:17:27 AM POC Glucose Result [...] airspace opacities bilaterally. Dictated and Signed by: Anthoyn Swift MD Electronically signed: 10/06/2017 8:34 AM [...] of known severe ischemic CAD/recent ant wall NV in 03/2017 c/b card iogenic shock s/p ECMO in [facility] - troponin peaked to 26 - LHC [...] as outlined above. Destinee Trejo 10/06/2017 12:45 [facility] Clinton Hernandez MD - 10/05/2017 [...] Hernandez MD - 10/05/2017 9:39 AM PST [facility] PMG Hospitalist Progress Note Ron Hood is [...] as outlined above. Clinton Burnett 10/05/2017 9:39 [facility] Portions of this chart may have been created with TouchFrame voice recognition software. Occasi onal wrong-word or sound-alike substitutions may have occurred due to the inherent canseco itations of voice recognition software. Please read the chart carefully and recognize, using context, where these substitutions have occurred Clinton Hernandez MD - 0 10/04/2017 12:41 PM PST [facility] PMG Hospitalist Progress Note Ron Hood is [...] as outlined above. Clinton Burnett 10/04/2017 12:42 [facility] Portions of this chart may have been created with TouchFrame voice recognition software. Occasi onal wrong-word or [...] mcg 25-50 mcg Intravenous Q1H PRN Herman Mastersno MD 50 mcg at 10/04/17 0930 insulin [...] :consider ischemia/infarction Confirmed by ZOHRA BREWER, FLORY ([id number]) on 10/04/2017 10:35:54 AM Influenza A PCR [...] 10/03/2017 5.0 5.0 - 8.0 Final Specific [place] 10/03/2017 1.006 1.001 - 1.030 Final PROTEIN [...] due to: Intubated X Pharmacy list names: [facility] and [facility] X [employer] insurance reported information X [...] as needed for suspected pain medication overdose Gfatpkz-vvyijskggwubc-rbjpdaoq 250-250-65 mg tab 1 tab by mouth [...] Prior to Admission Sig: Patient taking differently SOFT CRAB SHEDDER as: Lisinopril 5 mg tab 15 mg by mouth daily 5 mg by mouth every morning and 10 mg every eveni ng Medication review performed and electronically signed by Melody Falcon, Director Instrumentation 20:26 Reviewed by Kelly Pitts, PharmD 10/03/2017 [...] might be different fr om the original. [facility] [place] HOSPITALIST HISTORY & PHYSICAL Patient: Ron Hood : 1955: Age: 61 y.o. MedRec: [id number] Admission date: 10/03/2017 Hospital day # : 0 Physician author: Ganga Lind MD Today: 10/03/2017 CHIEF COMPLAINT: Hypoxic respiratory failure HISTORY OF PRESENT ILLNESS: This is a 61 y.o. male with a history of coronary artery disease post recent anterior wall NV, post PTCA and stents of the left main, LAD and LCx on 03/15/17, cardiac shock, left atrial appendage thrombus who presented to [facility] for progressively worsening shortn ess of breath. [...] mild hypokinesis of the anterior wall. Hospitalized: [facility] 03/15-04/02/17 transferred 03/15in acute cardiogenic shock requiring [...] Cor Angio; Surgeon: Monse Ross MD; Location: [facility] CV LAB ELBOW SURGERY Left GALLBLADDER [...] Status Full Medical Decision Maker [place] [phone] DVT Prophylaxis Warfarin PLAN: Acute hypoxic respiratory failure possibly 2/2 to pulmonary edema in setting of Acute systo lic heart failure +/- CAP with concern for ARDS Unable to obtain history. Patient had complicated admission in [facility] with recent IABP placem ent, anterior STEMI [...] decannulation. [facility] Currently does not appear to be on warfarin, possibly discontinued after 3 months, will minooe d med rec History of Chronic ischemic CMP (EF 50-55% in 06/04/17) Holding carvedilol, lisinopril given hypotension FEN: NPO PPX: Lovenox [facility] Documentation I expect this patient will be hospitalized for greater than 2-midnights and expect the post -hospital plan to be discharge to home or to an adult foster home. Electronically signed by: Ganga Lind MD 10/03/2017 10:02 [facility] documented in this e ncounter Procedure Notes Delmer Gomez MD - 10/03/2017 4:06 PM PSTAssociated Order(s): CV CARDIAC PROCEDUREPre-Pr ocedure Diagnose(s): NSTEMI (non-ST elevated myocardial infarction) (HCC)Post-Procedure Diag nose(s): NSTEMI (non-ST elevated myocardial infarction) (HCC)CARDIAC CATHETERIZATION REPORT DATE OF PROCEDURE: 10/03/17 PRECATHETERIZATION INFORMED CONSENT : Yes TIMEOUT Before start of procedure done: Yes DIETARY MANAGER: Delmer Gomez M.D., F.A.C.C. PRIMARY PHYSICIAN: Chato Matson MD PROCEDURES PERFORMED: Left heart catheterization, selective coronary arteriography INDICATIONS : 61-year-old gentleman presenting with acute hypoxic respiratory failure, new left bundle branch block, increasing troponin levels, history of coronary artery PCI and pr ior anterior myocardial infarction ARTERIAL ACCESS: Right femoral artery 6 Barbadian CLOSURE DEVICE:. Sheath left in place as [...] a modified Seldinger technique and a 6 Barbadian sheath was inserted. Selective coronary arteriography was performed using 6 Barbadian Kymberly right 4 and left 4 catheters. [...] instability we will transfer the patient to [facility] for consideration of urgent coronary revascularization. Delmer Gomez M.D., F.A.C.C. [employer] [place], [place] documented in this enc ounter Consult [...] occlusion. The patient was transferred emergently to [facility] in [facility] his stents were implanted and no further [...] chest pain. The patient was transferred to [facility] where ECG showed left b undle [...] Cor Angio; Surgeon: Monse Ross MD; Location: [facility] CV LAB ELBOW SURGERY Left GALLBLADDER [...] (NS) infusion Intravenous Continuous Ganga Lind MD [facility] list of outpatient meds: Prescriptions Prior [...] 10/03/2017 5.0 5.0 - 8.0 Final Specific [place] 10/03/2017 1.006 1.001 - 1.030 Final PROTEIN [...] Notes Plan of Care - Bob Gonzalez, MEDICAL IMAGING DIRECTOR - 10/10/2017 3:44 PM PSTProblem: Patient Care [...] Ron is now subhash ng transferred to [facility] for further treatment of his heart issues. RT goal met. Call RT for any respiratory concerns. lan of Care Clinton Allison Jr., MEDICAL IMAGING DIRECTOR - 10/10/2017 5:26 AM PSTProblem: Patient Care [...] on room air, denied shortness of breath. [place] 2 tabs given for complain of back pain. Alert and oriented. Call light within reach. lan of [facility] - Rhea Padgett RN - 10/09/2017 5:57 [...] ADLs Long-sleeved shirt. UB Dressing, Level of [place]: set up required UB Dressing Assess/Train, Position: sitting UB Dressing Assess/Train, Impairments: decreased flexibility Already wearing pants, but can doff/don socks by crossing legs. LB Dressing, Level of [place]: set up required, supervised LB Dressing Assess/Train, Position: sitting, standing LB Dressing Assess/Train, Impairments: strength decreased Toileting, Level of [place]: supervised Toileting Assess/Train, Impairments: postural control impaired, [...] improved w/ height adjustment. Sit-Stand, Level of [place]: SBA Stand-Sit, Level of [place]: stand by assist Aue-Gjgob-Syh, Assistive Device: 4 wheeled walker (4WW) Toilet, Level of [place]: stand by assist Toilet, Assistive Device: 4 [...] STG Status met at 10/09/2017 1700 STG [place] Level stand by assist at 10/07/2017 1157 STG Position supported standing, standing at 10/07/2017 1157 STG Adaptive Equipment none at 10/07/2017 1157 Toilet Transfer Goal Flowsheet Row Most Recent Value STG Status met at 10/09/2017 1700 STG [place] Level stand by assist, set up required, [...] are: Recommended discharge disposition: inpatient rehabilitation facility, halfway faci lity (vs, TBD) Post discharge physical [...] use 4 ww from home Level of [place]: stand by assist Assistive Device: 4 wheeled [...] l ess O2 required Sit-Stand, Level of [place]: stand by assist Stand-Sit, Level of [place]: stand by assist Vbk-Gnkfb-Avk, Assistive Device: 4 wheeled walker (4WW) Toilet, Level of [place]: contact guard assist Toilet, Assistive Device: 4 [...] STG Status progressing at 10/08/2017 1130 STG [place] Level modified independent at 10/06/2017 1340 Nlv-Hktaw-Uar Goal Flowsheet Row Most Recent Value STG Status progressing at 10/09/2017 1157 STG [place] Level modified independent at 10/06/2017 1340 STG Assistive Device 4 wheeled walker (4WW) at 10/06/2017 1340 Gait Goal Flowsheet Row Most Recent Value STG Status progressing at 10/09/2017 1157 STG [place] Level modified independent at 10/06/2017 1340 STG Assistive Device 4 wheeled walker (4WW) at 10/06/2017 1340 STG Distance (feet) 50 at 10/06/2017 1340 Stair Goal Flowsheet Row Most Recent Value STG Status new at 10/06/2017 1340 STG [place] Level modified independent at 10/06/2017 1340 STG Assistive Device 2 rails at 10/06/2017 1340 STG Number of Stairs 4 at 10/06/2017 1340 Electronically signed by: Merrill Evans PTA, 10/09/2017 11:58 lan of Care - Roshan ett, Kelly Mai MEDICAL IMAGING DIRECTOR - 10/09/2017 5:57 AM PSTProblem: Patient Care [...] Patient on NC @ 5L O2, improving. Charlotte given for chron ic neck pain x2. Droplet precautions maintained. F/C d/c'ed 10/08/17, UOP good. Up in chair x2 . lan of Care - Shoaib Leary MEDICAL IMAGING DIRECTOR - 10/08/2017 3:10 PM PSTProblem: Patient Care [...] Christine Garcia this afternoon reg cathyding a [employer] application. I placed it in the patient's ghost chart and let her know eliza t she needed to ask her 's RN to retrieve it for her. I instructed her to turn it in to the [employer]'s Office when completed and they would answer any questions she may have as Christine Garcia will be gone tomorrow. I let her know what documents she would need to have to c omplete the application as well. I faxed a referral to [facility] through [employer] as well as she has no had [...] are: Recommended discharge disposition: inpatient rehabilitation facility, halfway faci lity (vs, TBD) Post discharge physical [...] pt much happier using it Level of [place]: contact guard assist, verbal cues required Assistive [...] d/t high flow NC Bed-Chair, Level of [place]: contact guard assist, verbal cues required, set up requir ed Chair-Bed, Level of [place]: not tested Tve-Wphxx-Bpw, Assistive Device: 2 wheeled walker (FWW) Sit-Stand, Level of [place]: verbal cues required, contact guard assist, set up requir ed Stand-Sit, Level of [place]: contact guard assist, verbal cues required, set up requir ed Ypd-Shkxr-Xvo, Assistive Device: 2 wheeled walker (FWW) Safety [...] STG Status progressing at 10/08/2017 1130 STG [place] Level modified independent at 10/06/2017 1340 Jym-Hbkoo-Ckd Goal Flowsheet Row Most Recent Value STG Status progressing at 10/08/2017 1130 STG [place] Level modified independent at 10/06/2017 1340 STG Assistive Device 4 wheeled walker (4WW) at 10/06/2017 1340 Gait Goal Flowsheet Row Most Recent Value STG Status progressing at 10/08/2017 1130 STG [place] Level modified independent at 10/06/2017 1340 STG Assistive Device 4 wheeled walker (4WW) at 10/06/2017 1340 STG Distance (feet) 50 at 10/06/2017 1340 Stair Goal Flowsheet Row Most Recent Value STG Status new at 10/06/2017 1340 STG [place] Level modified independent at 10/06/2017 1340 STG [...] intermittent pi nk/white thick sputum. VSS day. [place] x3 for generalized pain. continues to refuse to w ear mask for positive flu in room, agreed to wear mask when leaving pt. Room. lan of Care - Arleth Craig RN - 10/07/2017 6:45 PM PSTProblem: Discharge Planning Goal: Patient will be discharged in a safe manner Outcome: Unchanged I visited with and Mrs Hood this afternoon regarding discharge planning. They live in [place], [place] a mobile home with four steps with a handrail leading to the entrance. He is normally independent and drives. They are very concerned regarding this hospital bi ll and I called and left a message for Christine Garcia from [employer] requesting a visit tomorrow to see if they are eligible for any services or lotus. His PCP is Dr. Matson. Darshan reyes is a and is 40% service connected per Lulu at the [place]. He uses the [facility] or the [place] pharmacy. He owns a WC, a 4WW and a cane. He chose [facility] as his D [place] agency of choice. We also discussed [facility] in [place] and the [place] for DME. He is ag reeable to Home Health services as well. For a "Plan B" he chose: 1) [place] and Mrs Sania Noble will take a look at [facility], [facility] [place] and Tabitha parry nd let me know [...] at level safe for home d ischarge, [facility] indicating significant impairment with basic functional mobility and medical status. Ron will benefit from continued therapeutic intervention to address ongoing impairments and increase safety and independence with activities necessary for safe discharge. Refer be low for specific details regarding functional levels. Physical Therapy Discharge Recommendations are: Recommended discharge disposition: inpatient rehabilitation facility, halfway faci lity (vs, TBD) Post discharge physical [...] still limited by high flow Level of [place]: minimal assist (75% patient effort) Assistive Device: 2 wheeled walker (FWW) Distance (feet): 3 Transfers impaired activity tolerance, cues for safety and hand placement; limited mobility d/t on hi gh flow NC Bed-Chair, Level of [place]: contact guard assist, verbal cues required, set up requir ed Chair-Bed, Level of [place]: not tested Umw-Bxdty-Eou, Assistive Device: 2 wheeled walker (FWW) Sit-Stand, Level of [place]: verbal cues required, tactile cues required, contact guar d assist Stand-Sit, Level of [place]: contact guard assist, verbal cues required Ksp-Uufyy-Tmq, Assistive Device: 2 wheeled walker (FWW) Impairments: strength decreased, impaired balance Bed Mobility increased time, assist for line management Supine to Sit, Level of [place]: moderate assist (50% patient effort), verbal cues [...] STG Status progressing at 10/07/2017 1340 STG [place] Level modified independent at 10/06/2017 1340 Jaz-Pprbx-Vtq Goal Flowsheet Row Most Recent Value STG Status progressing at 10/07/2017 1340 STG [place] Level modified independent at 10/06/2017 1340 STG Assistive Device 4 wheeled walker (4WW) at 10/06/2017 1340 Gait Goal Flowsheet Row Most Recent Value STG Status progressing at 10/07/2017 1340 STG [place] Level modified independent at 10/06/2017 1340 STG Assistive Device 4 wheeled walker (4WW) at 10/06/2017 1340 STG Distance (feet) 50 at 10/06/2017 1340 Stair Goal Flowsheet Row Most Recent Value STG Status new at 10/06/2017 1340 STG [place] Level modified independent at 10/06/2017 1340 STG [...] Therapy Discharge Recommendations are: Recommended discharge disposition: halfway facility Post discharge occupational therapy recommendation: will [...] line mgmt. Supine to Sit, Level of [place]: minimal assist (75% patient effort), verbal cues requ ired, tactile cues required, set up required, 1 person + 1 person to manage equipment Sit to Supine, Level of [place]: not tested Safety Issues: decreased use of arms for pushing/pulling, decreased use of legs for bridgin g/pushing Impairments: strength decreased, impaired balance Transfers Impaired activity tolerance, cues for safety, hand plcmt on FWW. Pt still on high flow O2 so limited in mobility. Bed-Chair, Level of [place]: contact guard assist, verbal cues required, set up requir ed, 1 person + 1 person to manage equipment Sit-Stand, Level of [place]: 1 person + 1 person to manage equipment, verbal cues requ ired, tactile cues required, contact guard assist Stand-Sit, Level of [place]: contact guard assist, 1 person + 1 person to manage equip ment, verbal cues required Xqx-Wtnrw-Bro, Assistive Device: 2 wheeled walker (FWW) Impairments: strength decreased, impaired balance OT Goal Review Date Flowsheet Row Most Recent Value STG Review Date 10/10/17 at 10/07/2017 1157 Grooming Goal Flowsheet Row Most Recent Value STG Status new at 10/07/2017 1157 STG [place] Level stand by assist at 10/07/2017 1157 STG Position supported standing, standing at 10/07/2017 1157 STG Adaptive Equipment none at 10/07/2017 1157 Toilet Transfer Goal Flowsheet Row Most Recent Value STG Status new at 10/07/2017 1157 STG [place] Level stand by assist, set up required, [...] bridging to PO tomorrow. PO metoprolol held. Charlotte X 3 for pain. continues to refuse [...] mo tor exam, PO trials and performance. GREENS LABORER recommends diet upgrade to regular textures with th in lquids with pt always upright in chair for meals. GREENS LABORER educated pt on pacing himself when eating. Staff to cut food for him d/t mild UE weakness, reduced dexterity. Pt verbalized und erstanding. No further skilled [employer] services needed at this time. Textures attempted [...] 3 days. He correctly recalled being in [place] and that his had t o remind him that this AM as he thought he was at [facility]. Patient pleasant and agreeable. Re ported fatigue [...] high flow O2 needs Chair-Bed, Level of [place]: minimal assist (75% patient effort), 1 person + 1 person to manage equipment, verbal cues required, tactile cues required Ruf-Mimyv-Fay, Assistive Device: 2 wheeled walker (FWW) Sit-Stand, Level of [place]: minimal assist (75% patient effort), 1 person + 1 person to manage equipment, verbal cues required, tactile cues required Stand-Sit, Level of [place]: contact guard assist, 1 person + 1 person to manage equip ment, verbal cues required Qdb-Vkbdq-Mqx, Assistive Device: 2 wheeled walker (FWW) Impairments: strength decreased, impaired balance (activity tolerance) Bed Mobility increased time and cues for safety Supine to Sit, Level of [place]: moderate assist (50% patient effort), 1 person [...] Strength: gross deconditioning due to prolonged bedrest [facility] M[facility] Turning over in bed: a [...] steps with a railing: dependent/unable TOTAL - [facility] : 14 Completed the [facility] Activity Measure for Post Acute Care (AM-PAC) "6 Clicks" [facility] Mobility Inpatient Short Form. This version of [...] STG Status new at 10/06/2017 1340 STG [place] Level modified independent at 10/06/2017 1340 Mwf-Fbnli-Bvb Goal Flowsheet Row Most Recent Value STG Status new at 10/06/2017 1340 STG [place] Level modified independent at 10/06/2017 1340 STG Assistive Device 4 wheeled walker (4WW) at 10/06/2017 1340 Gait Goal Flowsheet Row Most Recent Value STG Status new at 10/06/2017 1340 STG [place] Level modified independent at 10/06/2017 1340 STG Assistive Device 4 wheeled walker (4WW) at 10/06/2017 1340 STG Distance (feet) 50 at 10/06/2017 1340 Stair Goal Flowsheet Row Most Recent Value STG Status new at 10/06/2017 1340 STG [place] Level modified independent at 10/06/2017 1340 STG [...] Evaluation: Extubated yesterday afternoon. On bipap overnight. Charlotte X 3 given for pain. A/O slight [...] Endoscopy Patient: Ron Hood : 1955 Acct: [id number] Exam Date: Thursday, October 05, 2017 Doctor: [...] If unable to reach your physician, call [facility] Emergency Department at Ext. 2500 Your [...] extubated. Ron lives with his spouse in [place]. Ron is normally independent with his needs. Ron uses [facility] the [facility] for his pharmacy. PCP: Dano UPTON will [...] who is admitted for Pulmonary edema [J81.1]. Head Resident visit was part of routine rounding. Spiritual Evaluation: Patient was sleeping. Debbie was resting at his bedside. She was hopeful about his cond ition and said that he is doing better today than yesterday. 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 She s aid that she was raised Orthodoxy, but is open religiously at this point. She desired rest t his morning. Spiritual Interventions: [employer] attended, offered care, listened actively, and explored [...] 12.5. Pillai d cardiology, patient went for [facility] with findings of: severe in-stent stenosis of L main to o stial LAD stent, Severe in-stent stenosis ostial proximal L circ stent. Patient was recommen ded if patient had cardiac instability to be transferred to [facility], but at this time to [facility] treating with broad spectrum abx, fluid support. Hep gtt was not recommended. Patient will be continued on plavix, ASA, statin. Patient was continued on azithromycin, ceftriaxone . Maintenance IVFs was started given L ventricular filling pressures and unchanged Ef. Patie nt was weaned off levophed during the day. Awaiting for cultures. lan of Care - Shoaib Bueno, MEDICAL IMAGING DIRECTOR - 018 6:51 PM PSTProblem: Patient Care [...] Evaluation: Patient was a direct admit from [facility]. Respiratory Failure. Tested positive for influe nza [...] 03/12/ | Office | Nephrology | [facility] | | | [facility] | Visit | | ADARSH [address] | | | | | | [facility] | | | | | | [address] [place] | | | | | | [address] | | | | | | | | +--------+ + + + + | 04/16/ | Office | Cardiology | MonicaAlin parry | | | 2019 | Visit | | MD Cheryl Arreguin | | | | | | [address] | | | | | | [place] [address] | | | | | | [phone] | | | | | | | [...] [place] | | | | | | [address] | | | | | | | [...] [address] | [place] | [phone] | | [facility] | | [address] | | | - LABORATORY | | [...] [address] | [place] | [phone] | | [facility] | | [address] | | | - LABORATORY | | [...] + | [facility] | [address] | [place] | [phone] | | [facility] | | [address] | | | - LABORATORY | | [...] [address] | [place] | [phone] | | [facility] | | [address] | | | - LABORATORY | | [...] + | [facility] | [address] | [place] | [phone] | | [facility] | | [address] | | | - LABORATORY | | [...] + | [facility] | [address] | [place] | [phone] | | [facility] | | [address] | | | - LABORATORY | | [...] [address] | [place] | [phone] | | [facility] | | [address] | | | - LABORATORY | | [...] | 1.23 | 0.60 - 1.30 | [facility] | | | | | mg/dL | [facility] | | | | | | MEDICAL | | | | | | CENTER - | | | | | | LABORATORY | | + + + + + + | eGFR if not | 60Comment: GLOMERULAR | >=60 | [facility] | | | | FILTRATION | mL/min/1.73m2 | [facility] | | | [place] | RATE,ESTIMATED | | MEDICAL | | | | mL/min/1.79e1Bixx than | | CENTER - | | [...] + | [facility] | [address] | [place] | [phone] | | [facility] | | [address] | | | - LABORATORY | | [...] [address] | [place] | [phone] | | [facility] | | [address] | | | - LABORATORY | | [...] [address] | [place] | [phone] | | [facility] | | [address] | | | - LABORATORY | | [...] + | [facility] | [address] | [place] | [phone] | | [facility] | | [address] | | | - LABORATORY | | [...] + | [facility] [facility] | [address] | [place] | [phone] | | [facility] | | [address] | | | - LABORATORY | | [...] [address] | [place] | [phone] | | [facility] | | [address] | | | - LABORATORY | | [...] + | [facility] | [address] | [place] | [phone] | | [facility] | | [address] | | | - LABORATORY | | [...] [address] | [place] | [phone] | | [facility] | | [address] | | | - LABORATORY | | [...] [address] | [place] | [phone] | | [facility] | | [address] | | | - LABORATORY | | [...] [address] | [place] | [phone] | | [facility] | | [address] | | | - LABORATORY | | [...] (H) | 7 - 18 mg/dL | [facility] | | | | | | [facility] | | | | | | MEDICAL | | | | | | CENTER - | | | | | | LABORATORY | | + + + + + + | Creatinine | 1.29 | 0.60 - 1.30 | [facility] | | | | | mg/dL | [...] mL/min/1.73m2 | [facility] | | | [place] | RATE,ESTIMATED | | MEDICAL | | | | mL/min/1.67z9Glls than | | CENTER - | | [...] | ine Ratio | | | [facility] | | | | | | MEDICAL [...] [address] | [place] | [phone] | | [facility] | | [address] | | | - LABORATORY | | [...] ST. | [address] | [place], [place] | [phone] | | [facility] | | [address] | | | - LABORATORY | | [...] [address] | [place] | [phone] | | [facility] | | [address] | | | - LABORATORY | | [...] [address] | [place] | [phone] | | [facility] | | [address] | | | - LABORATORY | | [...] + | [facility] | [address] | [place] | [phone] | | [facility] | | [address] | | | - LABORATORY | | [...] The | | | | | | [employer] | | | | | [...] + | [facility] | [address] | [place], [place] | [phone] | | [facility] | | [address] | | | - LABORATORY | | [...] [address] | [place] | [phone] | | [facility] | | [address] | | | - LABORATORY | | [...] + | [facility] | [address] | [place] | [phone] | | [facility] | | [address] | | | - LABORATORY | | [...] [address] | [place] | [phone] | | [facility] | | [address] | | | - LABORATORY | | [...] + | [facility] | [address] | [place], [place] | [phone] | | [facility] | | [address] | | | - LABORATORY | | [...] | mL/min/1.73m2 | [facility] | | | [place] | RATE,ESTIMATED | | MEDICAL | | | | mL/min/1.74w7Feoz than | | CENTER - | | [...] | + + + + + | [facility] | [address] | [place] | [phone] | | [facility] | | [address] | | | - LABORATORY | | [...] | Basophils | | K/uL | [facility] | | | | | | [...] [address] | [place] | [phone] | | [facility] | | [address] | | | - LABORATORY | | [...] [address] | [place] | [phone] | | [facility] | | [address] | | | - LABORATORY | | [...] | | | | ZOHRA BREWER, FLORY ([id number]) | | | | | | on [...] | | | | FLORY العلي MD ([id number]) | | | | | | on [...] ST. | [address] | [place], [place] | [phone] | | [facility] | | [address] | | | - LABORATORY | | | | + + + + + EGD (10/05/2017 10:56 AM PST) + + | Specimen | + + | | + + + + -+ | Narrative | Performed At | + + -+ | | [facility] | | GastroenterologyPatient Name: Ron HoodProcedloree Date: | PROVATION | | 10/05/2017 10:56 AMMRN: [id number] #: [id number] of : | | | 5Admit Type: InpatientAge: 61Room: [facility] 01Gender: MaleNote | | | Status: FinalizedAttending MD: Terry Weir , [facility]ITALrocedure: | | | Upper GI endoscopyIndications: Suspected upper | | | gastrointestinal bleedingProviders: Terry Weir MD, | | | Gil Tam RN, Elizabeth Patel | | | ALFONSO Rivers, Siddharth Bradley CMA, [place] Jc, | | | Ecology Professor, Yong Napier MD (Anesthesia | | | [...] the anesthesiologist and | | | the electrocardiogram technician in the procedure room. Mental Status [...] Scope In: 11:00:34 AMScope Out: 11:11:30 AM [place] | | | [facility], [facility] [place] [address] | | | [phone] | | | area of the papilla [...] |Scope Out: 11:11:30 AM | | | [place] [facility], [address] [place] | | | [address] | | + + -+ + +---------+ [...] + | [facility] | [address] | [place] | [phone] | | [facility] | | [address] | | | - LABORATORY | | [...] + | [facility] | [address] | [place] | [phone] | | [facility] | | [address] | | | - LABORATORY | | [...] | mL/min/1.73m2 | [facility] | | | [place] | RATE,ESTIMATED | | MEDICAL | | | | mL/min/1.55o1Ljsr than | | CENTER - | | [...] [address] | [place] | [phone] | | [facility] | | [address] | | | - LABORATORY | | [...] [address] | [place] | [phone] | | [facility] | | [address] | | | - LABORATORY | | [...] ST. | [address] | [place], [place] | [phone] | | [facility] | | [address] | | | - LABORATORY | | [...] [address] | [place] | [phone] | | [facility] | | [address] | | | - LABORATORY | | [...] | | | | FLORY العلي MD ([id number]) | | | | | | on [...] [address] | [place] | [phone] | | [facility] | | [address] | | | - LABORATORY | | [...] + | [facility] | [address] | [place] | [phone] | | [facility] | | [address] | | | - LABORATORY | | [...] | | | | | results. [employer] | | | | | | [employer] [...] + | [facility] | [address] | [place] | [phone] | | [facility] | | [address] | | | - LABORATORY | | [...] PS+ 10, PEEP +5, 40%, ETCO2 35 LQD820% | [facility] | | [facility] | | | - LABORATORY | + + + + + + + + | Performing | Address | City/State/Zipcode | Phone Number | | Organization | | | | + + + + + | [facility] | [address] | [place] | [phone] | | [facility] | | [address] | | | - LABORATORY | | [...] [address] | [place] | [phone] | | [facility] | | [address] | | | - LABORATORY | | [...] [address] | [place] | [phone] | | [facility] | | [address] | | | - LABORATORY | | | | + + + + + Magnesium (10/04/2017 3:43 AM PST) + +-------+ + + + | Component | Value | Ref Range | Performed | Pathologist | | | | | At | Signature | + +-------+ + + + | Magnesium | 1.9 | 1.8 - 2.5 mg/dL | [facility] | | | | | | [facility] | | | | | | [...] + | [facility] | [address] | [place] | [phone] | | [facility] | | [address] | | | - LABORATORY | | [...] | mL/min/1.73m2 | [facility] | | | [place] | RATE,ESTIMATED | | MEDICAL | | | | mL/min/1.11a7Qoyc than | | CENTER - | | [...] [address] | [place] | [phone] | | [facility] | | [address] | | | - LABORATORY | | [...] | | | | | results. [employer] | | | | | | [employer] [...] ST. | [address] | [place], [place] | [phone] | | [facility] | | [address] | | | - LABORATORY | | [...] + | [facility] | [address] | [place] | [phone] | | [facility] | | [address] | | | - LABORATORY | | [...] mL/min/1.73m2 | [facility] | | | [place] | RATE,ESTIMATED | | MEDICAL | | | | mL/min/1.84q0Pnbf than | | CENTER - | | [...] [address] | [place] | [phone] | | [facility] | | [address] | | | - LABORATORY | | [...] + | [facility] | [address] | [place] | [phone] | | [facility] | | [address] | | | - LABORATORY | | [...] The | | | | | | [employer] | | | | | [...] ST. | [address] | [place], [place] | [phone] | | [facility] | | [address] | | | - LABORATORY | | [...] TIMEOUT Before start of procedure done: Yes DIETARY MANAGER: Delmer | | | Mila Gomez M.D., [...] Right femoral artery 6 | | | Barbadian CLOSURE DEVICE:. Sheath left in place as [...] | | | technique and a 6 Barbadian sheath was inserted. Selective coronary | | | arteriography was performed using 6 Barbadian Kymberly right 4 and left 4 | [...] | | will transfer the patient to [facility] for consideration of urgent | | | coronary revascularization. Delmer Gomez M.D., | | | Nora.Interventional CardiologistProvikittson memorial hospitalce [facility] | | | [place] | | | | | |CIRCUMFLEX ARTERY: [...] will transfer | | |the patient to [facility] for consideration of urgent coronary | | |revascularization. | | | | | |Delmer Gomez M.D., Jovana.Anette.C.C. | | |Dredge Mechanic | | |[facility] | | |[place] | | [...] [address] | [place] | [phone] | | [facility] | | [address] | | | - LABORATORY | | [...] MD | | | | | | ([id number]) on 10/04/2017 | | | | | [...] | | POC | | | [facility] | | | | | | [...] [address] | [place] | [phone] | | [facility] | | [address] | | | - LABORATORY | | [...] + | [facility] | [address] | [place] | [phone] | | [facility] | | [address] | | | - LABORATORY | | [...] [address] | [place] | [phone] | | [facility] | | [address] | | | - LABORATORY | | [...] | | | | mmol/L | [facility] | | | | | | [...] [address] | [place] | [phone] | | [facility] | | [address] | | | - LABORATORY | | [...] | | | | | | [employer] | | | | | [...] [address] | [place] | [phone] | | [facility] | | [address] | | | - LABORATORY | | [...] ST. | [address] | [place], [place] | [phone] | | [facility] | | [address] | | | - LABORATORY | | [...] + | [facility] | [address] | [place] | [phone] | | [facility] | | [address] | | | - LABORATORY | | [...] | | | Anticoagulation Range: | | [facility] | | | | 2.0 - 3.0High [...] [address] | [place] | [phone] | | [facility] | | [address] | | | - LABORATORY | | [...] not | 46 (L)Comment: | >=60 | [facility] | | | | GLOMERULAR FILTRATION | mL/min/1.73m2 | [facility] | | | [place] | RATE,ESTIMATED | | MEDICAL | | | | mL/min/1.60d8Dmst than | | CENTER - | | [...] ST. | [address] | [place], [place] | [phone] | | [facility] | | [address] | | | - LABORATORY | | [...] [address] | [place] | [phone] | | [facility] | | [address] | | | - LABORATORY | | [...] Number 458 J Patient | | | [id number] Date of Study 10/03/2017 | | | Number Visit Number [id number] | | | Referring Physician BENEDICT RAYGOZA Number Date of | | | 1955 Biosecurity Officer WILBERT VANCE [address]CS | | | Age 61 year(s) Interpreting DELMER | | | Mila GOMEZ MD, | | | Wall Taper [facility] Gender Male | | | Nurse Stress | | | Ecology Professor Procedure Type of Study TTE procedure: ECHO [...] Volume: 42.65 ml | | | EF Olmypvlgb64% Left | | | Ventricle Diastolic Dimension: [...] |Signature | | | | | | | [...] Volume: 42.65 ml | | | EF Bnjnpcjjc24% | | | | | | Left [...] Rad Results In - 10/03/2017 1:00 PM [facility] Transthoracic Echocardiography Report | | (TTE) Demographics Patient Name MIKE VELASQUEZ Room Number 458 | | J Patient [id number] Date of Study 10/03/2017 Number Visit Number | | [id number] Referring Physician BENEDICT RAYGOZA Number | | Date of 1955 Biosecurity Officer WILBERT VANCE [facility] Age | | 61 year(s) Interpreting DELMER GOMEZ MD, | | Wall Taper [facility] Gender Male 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 TechnicianProcedureType [...] ----- Electronically signed by DELMER GOMEZ MD, [facility](Interpreting physician) on | | 10/03/2017 12:59 | [...] LA Volume: 42.65 ml EF | | Ydbopuhep55% Left Ventricle Diastolic Dimension: 5.92 cm Septum [...] | Electronically signed by DELMER GOMEZ MD, [facility](Interpreting | | physician) on 10/03/2017 12:59 [...] LA Volume: 42.65 ml | | EF Ralygbjyn07% | | | | Left Ventricle | [...] [address] | [place] | [phone] | | [facility] | | [address] | | | - LABORATORY | | [...] [address] | [place] | [phone] | | [facility] | | [address] | | | - LABORATORY | | [...] | | | | Thanh | | [facility] | | | | | [...] [address] | [place] | [phone] | | [facility] | | [address] | | | - LABORATORY | | [...] ST. | [address] | [place] | [phone] | | [facility] | | [address] | | | - LABORATORY | | [...] [address] | [place] | [phone] | | [facility] | | [address] | | | - LABORATORY | | [...] [address] | [place] | [phone] | | [facility] | | [address] | | | - LABORATORY | | [...] [address] | [place] | [phone] | | [facility] | | [address] | | | - LABORATORY | | [...] [address] | [place] | [phone] | | [facility] | | [address] | | | - LABORATORY | | [...] + + | Performed at: 01 - [email or web address] | REFERENCE LAB | | [id number] Cosmetic Surgeon: Yesenia Gee MD, Phone: [phone] | [facility] | + + + + + + + + | Performing | Address | City/State/Zipcode | Phone Number | | Organization | | | | + + + + + | REFERENCE LAB | [address] | [place], [place] | [phone] | | [facility] | [facility] | [address] | | + + + + + [...] [address] | [place] | [phone] | | [facility] | | [address] | | | - LABORATORY | | [...] - 1.030 | [facility] | | | [place], | | | [facility] | | [...] [address] | [place] | [phone] | | [facility] | | [address] | | | - LABORATORY | | [...] | | | | First dose on [facility] 10/08/17 at 0915 | | | | [...] scheduled: AC, | | | NPO, Daytime 0562-9950 Use NIGHT | | | DOSE for doses scheduled: | | | HS, 3AM, Nighttime 4971-0806, | | + +---+ | | | [...]
--- OUTSIDE RECORDS SUMMARY | ~2020-03-04 | XMS | Encounter Summary ---
Demographics + + + | Address | [address] | | | [place] [address] | + + + | Home Phone | | + + + | Preferred Language | Unknown | + + + | Marital Status | | + + + | Rastafari Affiliation | NRP | + + + | Race | White | + + + | Ethnic Group | Not or | + + + Author + + + | Author | [facility] | + + + | Organization | [facility] | + + + | Address | Unknown | + + + | Phone | Unavailable | + + + Support + + + + + | Name | Relationship | Address | Phone | + + + + + | [place] Will | ECON | [address] | | | | | [place] [address] | | + + + + + Care Team Providers + +------+ + | Care Funeral Service Apprentice Name | Role | Phone | + +------+ + | Chato Matson MD | PCP | | + +------+ + Encounter Details +--------+ + + + + | Date | Type | Department | Care Team | Description | +--------+ + + + + | 03/31/ | Document-Sc | Health Information | Other, Faculty | | | 2017 | anned | Services [address] | [phone] | | | | | [address] | | | | | | Mailcode: [id number] | | | | | | [facility] | | | | | | [place], [place] | | | | | | [address] | | | | | | [phone] | | | +--------+ + + + [...]
--- OUTSIDE RECORDS SUMMARY | ~2020-03-04 | XMS | Encounter Summary ---
Demographics + + + | Address | [address] | | | [place] [address] | + + + | Home Phone [...] [place] | | | | | [address] | | + + + + + Care Team Providers + +------+ + | Care Excellence Consultant Name | Role | Phone | [...] | | | heart | [place], | [address] | | | | | failure | [place] [address] | [place] | | | | | (HCC) | Phone: | [address] | | | | | I50.22 | [phone] | Phone: | | | | | Procedures | Fax: | [phone] | | | | | Cardiac | [phone] | Fax: | | | | | Rehab | | [phone] | +--------+--------+ + + + + Encounter Details +--------+---------+ + + + | Date | Type | Department | Care Team | Description | +--------+---------+ + + + | 06/23/ | Office | [facility] | Amy Olivares V, | Chronic systolic CHF | | 2019 | Visit | [facility] | [address] | (congestive heart | | | | REHABILITATION [address] [place], [place] | failure) ([facility]) | | | | [address] | [id number] | | | | | [place] [address] | | | | | | [phone] | | | +--------+---------+ + + + [...] of this encounter Progress Notes Kathy Garcia, DIRECTORY OPERATOR - 06/23/2019 12:00 PM PDTFormatting of this note might be different f rom the original. [facility] [address] [place] [address] Cardiac Rehab Date: 06/23/2019 Patient Information Patient Name: Bob Will Date of : 1955 Age: 63 y.o. Encounter Diagnoses Code Name Primary? I50.22 Chronic systolic CHF (congestive heart failure) ([facility]) Number of Visits Approved: 34 [...] note. Electronically signed by: Kathy Garcia RRT, 06/23/2019 11:44 Patient Name: Bob Will/: 1955/ ly signed by Kathy Garcia RRT at 06/23/2019 11:44 AM PDTdocumented in this encounter Plan of Treatment [...] | | | | | [place] [address] | | | | | | [phone] | | | | | | | [...] [place] | | | | | | [address] | | | | | | | | +--------+ + + + + documented as of this encounter Visit Diagnoses + + | Diagnosis | + + | Chronic systolic CHF (congestive heart failure) (HCC) | + + documented in this encounter"
--- OUTSIDE RECORDS SUMMARY | ~2020-03-04 | XMS | Encounter Summary ---
Demographics + + + | Address | [address] | | | [place] [address] | + + + | Home Phone [...] [place], [place] | | | | | [address] | | + + + + + Care Team Providers + +------+ + | Care Tap And Die Maker Technician Name | Role | Phone | [...] | | | | | | | MS | | | | | | | [...] + + | 10/05/ | Surgery | [facility] | Terry Weir MD | EGD | | 2018 | | MED CTR [facility] | [address], [place] | | | | | [address] | [address] | | | | | [place] | [id number] | | | | | [address] | | | | | | [phone] | | | +--------+---------+ + + + [...] of known severe ischemic CAD/recent ant wall AK in 03/2017 c/b card iogenic shock s/p ECMO in [facility] 4. Paroxysmal atrial flutter Patient Active Problem List Diagnosis Acute anterior wall AK CAD (coronary artery disease) Ischemic cardiomyopathy Pulmonary [...] history of CAD with recent anterior wall AK, post PTCA and st ents of the left main, LAD and LCx on 03/15/17 + left atrial appendage thrombus c/b cardiac sh ock/respiratory failure requiring Tx to [facility]; was on ECMO, who was a transfer this time from [facility] on 10/03 for acute respiratory failure requiring intubation after prese nting with progressively worsening shortness of breath. Hospital Course, including Complications: He was found to have NSTEMI with new LBBB and elevated tropinin and Septic shock thought t o be from pneumonia/influenza; started on ceftriaxone, azithromycin and tamiflu. He underwen t [facility] on 10/03- severe in-stent stenosis of left [...] Gomez discussed with Luz Maria haynes at [facility] but patient refused to go to [place] for re-vascu larization. He preferred to go to [facility]. Dr. oGmez discussed with Dr. Bedoya at [facility] and he was accepted by him. [...] of known severe ischemic CAD/recent ant wall AK in 03/2017 c/b card iogenic shock s/p ECMO in [facility] - troponin peaked to 26 - [facility] on 10/03- severe in-stent stenosis of left [...] - Dr. Gomez discussed with Cardiology at [facility] and was accepted at [facility] for re-vascularization but patient refused and wanted to be transferred to [facility]. Dr. Gomez discussed with cardiology at [facility] and was accepted by them. - [...] results on DC: None Disposition: Transfer to [facility] cardiology service Dr. Bedoya accepting physician Discharge Procedure Orders Transfer patient to other facility Order Comments: [facility] when bed is available. Code Status/Advance Directive (Pertinent discussions/declarations): Full Code Time spent on Discharge and Coordination of post-hospital care: >30 minutes Electronically signed by: Destinee Trejo, 10/10/2017 15:01 [facility] documented in this en counter Medications at [...] Oneal RN - 10/10/2017 3:55 PM PSTCalled MNMENDY, RN informed that Lotus sabillon to call back this RN, phone number given. Electronically signed by: Rhea carroll RN 10/10/2017 15:58 Rhea Caal RN - 10/10/2017 1:59 PM PSTPatient called RN to bedside, patient to go to [facility], wants to get better and do [...] will be transferred today to [facility] for coronary revascularization. MEDICATIONS: Current [...] on amiodarone PLAN OR RECOMMENDATIONS: Transfer to [facility] audiology service Dr. Segura accepting physician I appreciate the opportunity of participating in the care of this patient. Delmer Gomez MD, 10/09/2017 15:00 Olga, MD Destinee - 10/09/2017 8:16 AM PST [facility] PMG Hospitalist Progress Note Ron Hood is a 61 y.o. male INTERVAL HPI: He is a 61 y.o. male with a history of CAD with recent anterior wall AK, post PTCA and sten ts of the left main, LAD and LCx on 03/15/17 + left atrial appendage thrombus c/b cardiac shoc k/respiratory failure requiring Tx to [facility]; was on ECMO, who was a transfer this time from [facility] on 10/03 for acute respiratory failure [...] of known severe ischemic CAD/recent ant wall AK in 03/2017 c/b card iogenic shock s/p ECMO in [facility] - troponin peaked to 26 - [...] Gomez will consult with cardiology team at [facility] Re: planning for revascularization today 4. Paroxysmal [...] as outlined above. Destinee Trejo 10/09/2017 8:16 [facility] Destinee Espinoza MD - 10/08/2017 12:20 PM PST [facility] PMG Hospitalist Progress Note Ron Hood is a 61 y.o. male INTERVAL HPI: He is a 61 y.o. male with a history of CAD with recent anterior wall AK, post PTCA and sten ts of the left main, LAD and LCx on 03/15/17 + left atrial appendage thrombus c/b cardiac shoc k/respiratory failure requiring Tx to [facility]; was on ECMO, who was a transfer this time from [facility] on 10/03 for acute respiratory failure [...] % on high-flow nasal ca nnula, heated, tetryl blender operator system at flow rate 14L/min Temp Min: [...] of known severe ischemic CAD/recent ant wall AK in 03/2017 c/b card iogenic shock s/p ECMO in [facility] - troponin peaked to 26 - [...] Gomez will consult with cardiology team at [facility] Re: planning for revascularization today 4. Paroxysmal [...] as outlined above. Destinee Trejo 10/08/2017 12:20 [facility] Destinee Espinoza MD - 10/07/2017 2:38 PM PST [facility] PMG Hospitalist Progress Note Ron Hood is a 61 y.o. male INTERVAL HPI: He is a 61 y.o. male with a history of CAD with recent anterior wall AK, post PTCA and sten ts of the left main, LAD and LCx on 03/15/17 + left atrial appendage thrombus c/b cardiac shoc k/respiratory failure requiring Tx to [facility]; was on ECMO, who was a transfer this time from [facility] on 10/03 for acute respiratory failure [...] of known severe ischemic CAD/recent ant wall AK in 03/2017 c/b card iogenic shock s/p ECMO in [facility] - troponin peaked to 26 - [facility] on 10/03- severe in-stent stenosis of left [...] Gomez will consult with cardiology team at [facility] Re: planning for revascularization 4. Paroxysmal atrial [...] the patient's care as outlined above. Destinee Trjeo 10/07/2017 14:38 [facility] Delmer Mcmanus MD - 10/07/2017 [...] RECOMMENDATIONS: Continue current medical management We'll contact [facility] regarding transfer and revascularization plann ing [...] orally BID Carlos Graham PharmD 10/07/2017 9:59 [facility] IV TO PO Collaborative Practice [...] 25 mg Oral 4 times per day eDstinee Trejo MD 25 mg at 10/06/17 1327 [...] troponin Will consult with cardiology team at [facility] regarding planning for coronary revascularization prior to discharge home I appreciate the opportunity of participating in the care of this patient. Delmer Gomez MD, 10/06/2017 17:17 eil, MD Destinee - 10/06/2017 12:45 PM PST [facility] PMG Hospitalist Progress Note Ron Hood is a 61 y.o. male INTERVAL HPI: He is a 61 y.o. male with a history of CAD with recent anterior wall AK, post PTCA and sten ts of the left main, LAD and LCx on 03/15/17 + left atrial appendage thrombus c/b cardiac shoc k/respiratory failure requiring Tx to [facility]; was on ECMO, who was a transfer this time from [facility] on 10/03 for acute respiratory failure [...] 95 % on high-flow nasal can nula, tetryl blender operator system, heated at flow rate 14L/min Temp [...] now present Confirmed by FLORY العلي MD ([id number]) on 10/06/2017 7:17:27 AM POC Glucose Result [...] of known severe ischemic CAD/recent ant wall AK in 03/2017 c/b card iogenic shock s/p ECMO in [facility] - troponin peaked to 26 - [...] as outlined above. Destinee Trejo 10/06/2017 12:45 [facility] Clinton Hernandez MD - 10/05/2017 [...] Hernandez MD - 10/05/2017 9:39 AM PST [facility] PMG Hospitalist Progress Note Ron [...] as outlined above. Clinton Burnett 10/05/2017 9:39 [facility] Portions of this chart may have been created with [employer] voice recognition software. Occasi onal wrong-word or sound-alike substitutions may have occurred due to the inherent canseco itations of voice recognition software. Please read the chart carefully and recognize, using context, where these substitutions have occurred Clinton Hernandez MD - 0 10/04/2017 12:41 PM PST [facility] PMG Hospitalist Progress Note Ron [...] as outlined above. Clinton Burnett 10/04/2017 12:42 [facility] Portions of this chart may have been created with [employer] voice recognition software. 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 [facility] [place] HOSPITALIST HISTORY & PHYSICAL Patient: Ron Hood : 1955: Age: 61 y.o. MedRec: [id number] Admission date: 10/03/2017 Hospital day # : 0 Physician author: Ganga Lind MD Today: 10/03/2017 CHIEF COMPLAINT: Hypoxic respiratory failure HISTORY OF PRESENT ILLNESS: This is a 61 y.o. male with a history of coronary artery disease post recent anterior wall AK, post PTCA and stents of the left main, LAD and LCx on 03/15/17, cardiac shock, left atrial appendage thrombus who presented to [facility] for progressively worsening shortn ess of breath. [...] mild hypokinesis of the anterior wall. Hospitalized: [facility] 03/15-04/02/17 transferred 03/15in acute cardiogenic shock [...] Medical History: Diagnosis Date Acute anterior wall AK (HCC) 04/03/2017 Angiography and stent 03/15/2017 successful [...] Cor Angio; Surgeon: Monse Ross MD; Location: [facility] CV LAB ELBOW SURGERY Left GALLBLADDER [...] Status Full Medical Decision Maker [place] Hood [phone] DVT Prophylaxis Warfarin PLAN: Acute hypoxic respiratory failure possibly 2/2 to pulmonary edema in setting of Acute systo lic heart failure +/- CAP with concern for ARDS Unable to obtain history. Patient had complicated admission in [facility] with recent IABP placem ent, anterior [...] lisinopril given hypotension FEN: NPO PPX: Lovenox [facility] Documentation I expect this patient will be hospitalized for greater than 2-midnights and expect the post -hospital plan to be discharge to home or to an adult foster home. Electronically signed by: Ganga Lind MD 10/03/2017 10:02 [facility] documented in this e ncounter Procedure Notes Delmer Gomez MD - 10/03/2017 4:06 PM PSTAssociated Order(s): CV CARDIAC PROCEDUREPre-Pr ocedure Diagnose(s): NSTEMI (non-ST elevated myocardial infarction) (HCC)Post-Procedure Diag nose(s): NSTEMI (non-ST elevated myocardial infarction) (HCC)CARDIAC CATHETERIZATION REPORT DATE OF PROCEDURE: 10/03/17 PRECATHETERIZATION INFORMED CONSENT : Yes TIMEOUT Before start of procedure done: Yes ROOM SERVICE FOOD SERVICE ATTENDANT: Delmer Gomez M.D., F.A.C.C. PRIMARY PHYSICIAN: Chato Matson MD PROCEDURES PERFORMED: Left heart catheterization, selective coronary arteriography INDICATIONS : 61-year-old gentleman presenting with acute hypoxic respiratory failure, new left bundle branch block, increasing troponin levels, history of coronary artery PCI and pr ior anterior myocardial infarction ARTERIAL ACCESS: Right femoral artery 6 [place] CLOSURE DEVICE:. Sheath left in place as [...] a modified Seldinger technique and a 6 [place] sheath was inserted. Selective coronary arteriography was performed using 6 [place] Kymberly right 4 and left 4 catheters. [...] instability we will transfer the patient to [facility] for consideration of urgent coronary revascularization. Delmer Gomez M.D., F.A.C.C. Local Hazmat Driver [place], [place] documented in this enc ounter Consult Notes Delmer Gomez MD - 10/03/2017 3:50 PM PST PATIENT NAME: Rno Hood : 1955: AGE: 61 y.o. ADMISSION [...] occlusion. The patient was [facility] and [...] chest pain. The patient was transferred to [facility] where ECG showed left b undle [...] Medical History: Diagnosis Date Acute anterior wall AK (HCC) 04/03/2017 Angiography and stent 03/15/2017 successful [...] Cor Angio; Surgeon: Monse Ross MD; Location: [facility] CV LAB ELBOW SURGERY Left GALLBLADDER [...] (NS) infusion Intravenous Continuous Ganga Lind MD [facility] list of outpatient meds: Prescriptions Prior [...] 10/03/2017 5.0 5.0 - 8.0 Final Specific Roberts 10/03/2017 1.006 1.001 - 1.030 Final PROTEIN [...] Notes Plan of Care - Bob Gonzalez, MOBILE UI/UX DESIGNER - 10/10/2017 3:44 PM PSTProblem: Patient Care [...] Ron is now subhash ng transferred to [facility] for further treatment of his heart issues. RT goal met. Call RT for any respiratory concerns. lan of Clinton Zapata Jr., MOBILE UI/UX DESIGNER - 10/10/2017 5:26 AM PSTProblem: Patient Care [...] on room air, denied shortness of breath. [place] 2 tabs given for complain of back [...] ADLs Long-sleeved shirt. UB Dressing, Level of Frederick: set up required UB Dressing Assess/Train, Position: sitting UB Dressing Assess/Train, Impairments: decreased flexibility Already wearing pants, but can doff/don socks by crossing legs. LB Dressing, Level of [place]: set up required, supervised LB Dressing Assess/Train, Position: sitting, standing LB Dressing Assess/Train, Impairments: strength decreased Toileting, Level of [place]: supervised Toileting Assess/Train, Impairments: postural control impaired, [...] improved w/ height adjustment. Sit-Stand, Level of [place]: SBA Stand-Sit, Level of [place]: stand by assist Kuc-Zqyia-Wth, Assistive Device: 4 wheeled walker (4WW) Toilet, Level of [place]: stand by assist Toilet, Assistive Device: 4 [...] STG Status met at 10/09/2017 1700 STG [place] Level stand by assist at 10/07/2017 1157 STG Position supported standing, standing at 10/07/2017 1157 STG Adaptive Equipment none at 10/07/2017 1157 Toilet Transfer Goal Flowsheet Row Most Recent Value STG Status met at 10/09/2017 1700 STG [place] Level stand by assist, set up required, [...] are: Recommended discharge disposition: inpatient rehabilitation facility, 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 faci lity (vs, TBD) Post discharge physical [...] use 4 ww from home Level of Frederick: stand by assist Assistive Device: 4 wheeled [...] l ess O2 required Sit-Stand, Level of [place]: stand by assist Stand-Sit, Level of [place]: stand by assist Vfw-Dpads-Vdv, Assistive Device: 4 wheeled walker (4WW) Toilet, Level of [place]: contact guard assist Toilet, Assistive Device: 4 [...] STG Status progressing at 10/08/2017 1130 STG [place] Level modified independent at 10/06/2017 1340 Zez-Kmpvp-Yyl Goal Flowsheet Row Most Recent Value STG Status progressing at 10/09/2017 1157 STG [place] Level modified independent at 10/06/2017 1340 STG Assistive Device 4 wheeled walker (4WW) at 10/06/2017 1340 Gait Goal Flowsheet Row Most Recent Value STG Status progressing at 10/09/2017 1157 STG [place] Level modified independent at 10/06/2017 1340 STG Assistive Device 4 wheeled walker (4WW) at 10/06/2017 1340 STG Distance (feet) 50 at 10/06/2017 1340 Stair Goal Flowsheet Row Most Recent Value STG Status new at 10/06/2017 1340 STG [place] Level modified independent at 10/06/2017 1340 STG Assistive Device 2 rails at 10/06/2017 1340 STG Number of Stairs 4 at 10/06/2017 1340 Electronically signed by: Merrill Evans PTA, 10/09/2017 11:58 lan of Care - Roshan ett, Kelly Mai MOBILE UI/UX DESIGNER - 10/09/2017 5:57 AM PSTProblem: Patient Care [...] Patient on NC @ 5L O2, improving. C[place]o given for chron ic neck pain x2. Droplet precautions maintained. F/C d/c'ed 10/08/17, UOP good. Up in chair x2 . lan of Care - Shoaib Leary, MOBILE UI/UX DESIGNER - 10/08/2017 3:10 PM PSTProblem: Patient Care [...] Christine Garcia this afternoon reg arding a [employer] application. I placed it in the patient's ghost chart and let her know eliza t she needed to ask her 's RN to retrieve it for her. I instructed her to turn it in to the Threader Operator's Office when completed and they would answer any questions she may have as Christine Garcia will be gone tomorrow. I let her know what documents she would need to have to c omplete the application as well. I faxed a referral to [place] through [employer] as well as she has no had [...] are: Recommended discharge disposition: inpatient rehabilitation facility, 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 faci lity (vs, TBD) Post discharge physical [...] pt much happier using it Level of Frederick: contact guard assist, verbal cues required Assistive [...] d/t high flow NC Bed-Chair, Level of [place]: contact guard assist, verbal cues required, set up requir ed Chair-Bed, Level of [place]: not tested Xbp-Ziodi-Qub, Assistive Device: 2 wheeled walker (FWW) Sit-Stand, Level of [place]: verbal cues required, contact guard assist, set up requir ed Stand-Sit, Level of [place]: contact guard assist, verbal cues required, set up requir ed Lmc-Wslkk-Qjs, Assistive Device: 2 wheeled walker (FWW) Safety [...] STG Status progressing at 10/08/2017 1130 STG [place] Level modified independent at 10/06/2017 1340 Ubp-Jhwzi-Mzt Goal Flowsheet Row Most Recent Value STG Status progressing at 10/08/2017 1130 STG [place] Level modified independent at 10/06/2017 1340 STG Assistive Device 4 wheeled walker (4WW) at 10/06/2017 1340 Gait Goal Flowsheet Row Most Recent Value STG Status progressing at 10/08/2017 1130 STG [place] Level modified independent at 10/06/2017 1340 STG Assistive Device 4 wheeled walker (4WW) at 10/06/2017 1340 STG Distance (feet) 50 at 10/06/2017 1340 Stair Goal Flowsheet Row Most Recent Value STG Status new at 10/06/2017 1340 STG [place] Level modified independent at 10/06/2017 1340 STG [...] intermittent pi nk/white thick sputum. VSS day. [place] x3 for generalized pain. continues to refuse to w ear mask for positive flu in room, agreed to wear mask when leaving pt. Room. lan of Care - Arleth Craig RN - 10/07/2017 6:45 PM PSTProblem: Discharge Planning Goal: Patient will be discharged in a safe manner Outcome: Unchanged I visited with and Mrs Hood this afternoon regarding discharge planning. They live in [place], [place] a mobile home with four steps with a handrail leading to the entrance. He is normally independent and drives. They are very concerned regarding this hospital bi ll and I called and left a message for Christine Garcia from [employer] requesting a visit tomorrow to see if they are eligible for any services or lotus. His PCP is Dr. Matson. Darshan reyes is a and is 40% service connected per Lulu at the [place]. He uses the [facility] or the [place] pharmacy. He owns a WC, a 4WW and a cane. He chose [facility] as his D [place] agency of choice. We also discussed [facility] [place] [facility] He is ag reeable to Home Health services as well. For a "Plan B" he chose: 1) [place] and Mrs Sania Noble will take a look at [facility], [facility] [place] and Tabitha parry nd let me know [...] at level safe for home d ischarge, [facility] indicating significant impairment with basic functional mobility and medical status. Ron will benefit from continued therapeutic intervention to address ongoing impairments and increase safety and independence with activities necessary for safe discharge. Refer be low for specific details regarding functional levels. Physical Therapy Discharge Recommendations are: Recommended discharge disposition: inpatient rehabilitation facility, 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 faci lity (vs, TBD) Post discharge physical [...] still limited by high flow Level of Frederick: minimal assist (75% patient effort) Assistive Device: 2 wheeled walker (FWW) Distance (feet): 3 Transfers impaired activity tolerance, cues for safety and hand placement; limited mobility d/t on hi gh flow NC Bed-Chair, Level of [place]: contact guard assist, verbal cues required, set up requir ed Chair-Bed, Level of [place]: not tested Cqe-Hkwri-Ebl, Assistive Device: 2 wheeled walker (FWW) Sit-Stand, Level of [place]: verbal cues required, tactile cues required, contact guar d assist Stand-Sit, Level of [place]: contact guard assist, verbal cues required Fxv-Akjgt-Dpi, Assistive Device: 2 wheeled walker (FWW) Impairments: strength decreased, impaired balance Bed Mobility increased time, assist for line management Supine to Sit, Level of [place]: moderate assist (50% patient effort), verbal cues [...] STG Status progressing at 10/07/2017 1340 STG [place] Level modified independent at 10/06/2017 1340 Hje-Qjwau-Uxs Goal Flowsheet Row Most Recent Value STG Status progressing at 10/07/2017 1340 STG [place] Level modified independent at 10/06/2017 1340 STG Assistive Device 4 wheeled walker (4WW) at 10/06/2017 1340 Gait Goal Flowsheet Row Most Recent Value STG Status progressing at 10/07/2017 1340 STG [place] Level modified independent at 10/06/2017 1340 STG Assistive Device 4 wheeled walker (4WW) at 10/06/2017 1340 STG Distance (feet) 50 at 10/06/2017 1340 Stair Goal Flowsheet Row Most Recent Value STG Status new at 10/06/2017 1340 STG [place] Level modified independent at 10/06/2017 1340 STG [...] Therapy Discharge Recommendations are: Recommended discharge disposition: 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 facility Post discharge occupational therapy recommendation: will [...] line mgmt. Supine to Sit, Level of [place]: minimal assist (75% patient effort), verbal cues requ ired, tactile cues required, set up required, 1 person + 1 person to manage equipment Sit to Supine, Level of [place]: not tested Safety Issues: decreased use of arms for pushing/pulling, decreased use of legs for bridgin g/pushing Impairments: strength decreased, impaired balance Transfers Impaired activity tolerance, cues for safety, hand plcmt on FWW. Pt still on high flow O2 so limited in mobility. Bed-Chair, Level of [place]: contact guard assist, verbal cues required, set up requir ed, 1 person + 1 person to manage equipment Sit-Stand, Level of [place]: 1 person + 1 person to manage equipment, verbal cues requ ired, tactile cues required, contact guard assist Stand-Sit, Level of [place]: contact guard assist, 1 person + 1 person to manage equip ment, verbal cues required Vwk-Bpfrl-Owm, Assistive Device: 2 wheeled walker (FWW) Impairments: strength decreased, impaired balance OT Goal Review Date Flowsheet Row Most Recent Value STG Review Date 10/10/17 at 10/07/2017 1157 Grooming Goal Flowsheet Row Most Recent Value STG Status new at 10/07/2017 1157 STG [place] Level stand by assist at 10/07/2017 1157 STG Position supported standing, standing at 10/07/2017 1157 STG Adaptive Equipment none at 10/07/2017 1157 Toilet Transfer Goal Flowsheet Row Most Recent Value STG Status new at 10/07/2017 1157 STG [place] Level stand by assist, set up required, [...] bridging to PO tomorrow. PO metoprolol held. [place]addo X 3 for pain. continues to refuse [...] mo tor exam, PO trials and performance. MATERIALS CLERK recommends diet upgrade to regular textures with th in lquids with pt always upright in chair for meals. MATERIALS CLERK educated pt on pacing himself when eating. Staff to cut food for him d/t mild UE weakness, reduced dexterity. Pt verbalized und erstanding. No further skilled MATERIALS CLERK services needed at this time. Textures attempted [...] 3 days. He correctly recalled being in [place] and that his had t o remind him that this AM as he thought he was at [facility]. Patient pleasant and agreeable. Re ported [...] high flow O2 needs Chair-Bed, Level of [place]: minimal assist (75% patient effort), 1 person + 1 person to manage equipment, verbal cues required, tactile cues required Xwr-Bzzat-Fbu, Assistive Device: 2 wheeled walker (FWW) Sit-Stand, Level of [place]: minimal assist (75% patient effort), 1 person + 1 person to manage equipment, verbal cues required, tactile cues required Stand-Sit, Level of [place]: contact guard assist, 1 person + 1 person to manage equip ment, verbal cues required Thn-Ywmur-Kts, Assistive Device: 2 wheeled walker (FWW) Impairments: strength decreased, impaired balance (activity tolerance) Bed Mobility increased time and cues for safety Supine to Sit, Level of [place]: moderate assist (50% patient effort), 1 person [...] due to prolonged bedrest AMPA BASIC MOBILITY [facility] BASIC MOBILITY Turning over in bed: [...] AMPA BASIC MOBILITY : 14 Completed the [facility] Activity Measure for Post Acute Care (AM-PAC) "6 Clicks" [facility] Mobility Inpatient Short Form. This version [...] STG Status new at 10/06/2017 1340 STG Frederick Level modified independent at 10/06/2017 1340 Qvq-Ooaou-Eqs Goal Flowsheet Row Most Recent Value STG Status new at 10/06/2017 1340 STG [place] Level modified independent at 10/06/2017 1340 STG Assistive Device 4 wheeled walker (4WW) at 10/06/2017 1340 Gait Goal Flowsheet Row Most Recent Value STG Status new at 10/06/2017 1340 STG [place] Level modified independent at 10/06/2017 1340 STG Assistive Device 4 wheeled walker (4WW) at 10/06/2017 1340 STG Distance (feet) 50 at 10/06/2017 1340 Stair Goal Flowsheet Row Most Recent Value STG Status new at 10/06/2017 1340 STG Frederick Level modified independent at 10/06/2017 1340 STG [...] Evaluation: Extubated yesterday afternoon. On bipap overnight. Caddo X 3 given for pain. A/O slight [...] Endoscopy Patient: Ron Hood : 1955 Acct: [id number] Exam Date: Thursday, October 05, 2017 Doctor: [...] If unable to reach your physician, call [facility] Emergency Department at Ext. 2500 Your [...] extubated. Ron lives with his spouse in [place]. Ron is normally independent with his needs. Ron uses [facility] for his pharmacy. PCP: Dano UPTON will [...] who is admitted for Pulmonary edema [J81.1]. Rack Room Worker visit was part of routine rounding. Spiritual Evaluation: Patient was sleeping. Debbie was resting at his bedside. She was hopeful about his cond ition and said that he is doing better today than yesterday. 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 She s aid that she was raised Confucianism, but is open religiously at this point. She desired rest t his morning. Spiritual Interventions: Cone Worker attended, offered care, listened actively, and explored [...] 12.5. Pillai d cardiology, patient went for [facility] with findings of: severe in-stent stenosis of L main to o stial LAD stent, Severe in-stent stenosis ostial proximal L circ stent. Patient was recommen ded if patient had cardiac instability to be transferred to [facility], but at this time to [facility] treating with broad spectrum abx, fluid support. Hep gtt was not recommended. Patient will be continued on plavix, ASA, statin. Patient was continued on azithromycin, ceftriaxone . Maintenance IVFs was started given L ventricular filling pressures and unchanged Ef. Patie nt was weaned off levophed during the day. Awaiting for cultures. lan of Care - Shoaib Bueno, MOBILE UI/UX DESIGNER - 018 6:51 PM PSTProblem: Patient Care [...] Evaluation: Patient was a direct admit from [facility]. Respiratory Failure. Tested positive for influe nza [...] | | | | | [facility] | | | | | | [...] | | | | | [place] [address] | | | | | | [phone] | | | | | | | [...] [place] | | | | | | [address] | | | | | | | [...] [address] | [place] | [phone] | | [facility] | | [address] | | | - LABORATORY | | [...] ST. | [address] | [place], [place] | [phone] | | [facility] | | [address] | | | - LABORATORY | | [...] [address] | [place] | [phone] | | [facility] | | [address] | | | - LABORATORY | | [...] + | [facility] | [address] | [place] | [phone] | | [facility] | | [address] | | | - LABORATORY | | [...] + | [facility] | [address] | [place] | [phone] | | [facility] | | [address] | | | - LABORATORY | | [...] [address] | [place] | [phone] | | [facility] | | [address] | | | - LABORATORY | | [...] + | [facility] | [address] | [place] | [phone] | | [facility] | | [address] | | | - LABORATORY | | [...] mL/min/1.73m2 | [facility] | | | COLOMBIAN | RATE,ESTIMATED | | MEDICAL | | | | mL/min/1.10w8Gwmc than | | CENTER - | | [...] [address] | [place] | [phone] | | [facility] | | [address] | | | - LABORATORY | | [...] [address] | [place] | [phone] | | [facility] | | [address] | | | - LABORATORY | | [...] [address] | [place] | [phone] | | [facility] | | [address] | | | - LABORATORY | | [...] [address] | [place] | [phone] | | [facility] | | [address] | | | - LABORATORY | | [...] [address] | [place] | [phone] | | [facility] | | [address] | | | - LABORATORY | | [...] [address] | [place] | [phone] | | [facility] | | [address] | | | - LABORATORY | | [...] | | | POC | | | [facility] | | | | | | MEDICAL [...] + | [facility] | [address] | [place] | [phone] | | [facility] | | [address] | | | - LABORATORY | | [...] [address] | [place] | [phone] | | [facility] | | [address] | | | - LABORATORY | | [...] [address] | [place] | [phone] | | [facility] | | [address] | | | - LABORATORY | | [...] + | [facility] | [address] | [place] | [phone] | | [facility] | | [address] | | | - LABORATORY | | [...] mL/min/1.73m2 | [facility] | | | COLOMBIAN | RATE,ESTIMATED | | MEDICAL | | | | mL/min/1.83l5Bmfz than | | CENTER - | | [...] ST. | [address] | [place], [place] | [phone] | | [facility] | | [address] | | | - LABORATORY | | [...] | 0.00 | 0.00 - 0.10 | [facility] | | | Basophils | | K/uL [...] [address] | [place] | [phone] | | [facility] | | [address] | | | - LABORATORY | | [...] ST. | [address] | [place], [place] | [phone] | | [facility] | | [address] | | | - LABORATORY | | | | + + + + + XR Chest AP Portable (10/07/2017 3:31 AM [facility]) + + | Specimen | + + [...] [address] | [place] | [phone] | | [facility] | | [address] | | | - LABORATORY | | [...] [address] | [place] | [phone] | | [facility] | | [address] | | | - LABORATORY | | [...] The | | | | | | [employer] | | | | | [...] [address] | [place] | [phone] | | [facility] | | [address] | | | - LABORATORY | | [...] + | [facility] | [address] | [place] | [phone] | | [facility] | | [address] | | | - LABORATORY | | [...] + | [facility] | [address] | [place] | [phone] | | [facility] | | [address] | | | - LABORATORY | | [...] | | POC | | | [facility] | | | | | | [...] [address] | [place] | [phone] | | [facility] | | [address] | | | - LABORATORY | | [...] [address] | [place] | [phone] | | [facility] | | [address] | | | - LABORATORY | | [...] | mL/min/1.73m2 | [facility] | | | COLOMBIAN | RATE,ESTIMATED | | MEDICAL | | | | mL/min/1.04z4Qdxu than | | CENTER - | | [...] [address] | [place] | [phone] | | [facility] | | [address] | | | - LABORATORY | | [...] [address] | [place] | [phone] | | [facility] | | [address] | | | - LABORATORY | | [...] | | | POC | | | [facility] | | | | | | MEDICAL [...] + | [facility] [facility] | [address] | [place] | [phone] | | [facility] | | [address] | | | - LABORATORY | | [...] | | | | ZOHRA BREWER, FLORY ([id number]) | | | | | | on [...] | | | | FLORY العلي MD ([id number]) | | | | | | on [...] ST. | [address] | [place] | [phone] | | [facility] | | [address] | | | - LABORATORY | | | | + + + + + IZAIAH (10/05/2017 10:56 AM PST) + + | Specimen | + + | | + + + + -+ | Narrative | Performed At | + + -+ | | [facility] | | GastroenterologyPatient Name: Ron HoodProcedloree Date: | PROVATION | | 10/05/2017 10:56 AMMRN: [id number] #: [id number] of : | | | 5Admit Type: InpatientAge: 61Room: [facility]Gender: MaleNote | | | Status: FinalizedAttending MD: Terry Weir , [facility]ITALrocedure: | | | Upper GI endoscopyIndications: Suspected upper | | | gastrointestinal bleedingProviders: Terry Weir MD, | | | Gil Tam RN, Elizabeth Patel | | | ALFONSO Rivers, Siddharth Bradley CMA, [place] Jc, | | | Foundry Operator, Yong Napier MD (Anesthesia | | | [...] the anesthesiologist and | | | the oxygen equipment technician in the procedure room. Mental Status [...] Scope In: 11:00:34 AMScope Out: 11:11:30 AM [place] | | | [facility], [address] [place] [address] | | | [phone] | | | area of the papilla [...] |Scope Out: 11:11:30 AM | | | [facility] [place] [address] [place], [place] | | | [address] | | + + -+ + +---------+ [...] [address] | [place] | [phone] | | [facility] | | [address] | | | - LABORATORY | | [...] [address] | [place] | [phone] | | [facility] | | [address] | | | - LABORATORY | | [...] | | | FILTRATION | mL/min/1.73m2 | [facility] | | | COLOMBIAN | RATE,ESTIMATED | | MEDICAL | | | | mL/min/1.23y8Awtp than | | CENTER - | | [...] [address] | [place] | [phone] | | [facility] | | [address] | | | - LABORATORY | | [...] + | [facility] | [address] | [place] | [phone] | | [facility] | | [address] | | | - LABORATORY | | [...] + | [facility] | [address] | [place], [place] | [phone] | | [facility] | | [address] | | | - LABORATORY | | [...] + | [facility] [facility] | [address] | [place] | [phone] | | [facility] | | [address] | | | - LABORATORY | | [...] | | | | FLORY العلي MD ([id number]) | | | | | | on [...] + | [facility] | [address] | [place] | [phone] | | [facility] | | [address] | | | - LABORATORY | | [...] [address] | [place] | [phone] | | [facility] | | [address] | | | - LABORATORY | | [...] | | | | | results. [employer] | | | | | | [employer] [...] [address] | [place] | [phone] | | [facility] | | [address] | | | - LABORATORY | | [...] | | Arterial | | | [facility] | | | | | | MEDICAL [...] PS+ 10, PEEP +5, 40%, ETCO2 35 HXA432% | [facility] | | | [facility] | | | [facility] | | | - LABORATORY | + + + + + + + + | Performing | Address | City/State/Zipcode | Phone Number | | Organization | | | | + + + + + | [facility] | [address] | [place] | [phone] | | [facility] | | [address] | | | - LABORATORY | | [...] + | [facility] | [address] | [place] | [phone] | | [facility] | | [address] | | | - LABORATORY | | [...] + | [address] | [address] | [place] | [phone] | | [facility] | | [address] | | | - LABORATORY | | [...] ST. | [address] | [place], [place] | [phone] | | [facility] | | [address] | | | - LABORATORY | | [...] not | 58 (L)Comment: | >=60 | [facility] | | | | GLOMERULAR FILTRATION | mL/min/1.73m2 | [facility] | | | COLOMBIAN | RATE,ESTIMATED | | MEDICAL | | | | mL/min/1.06a5Xyms than | | CENTER - | | [...] | ine Ratio | | | [facility] | | | | | | [...] [address] | [place] | [phone] | | [facility] | | [address] | | | - LABORATORY | | [...] | | | | | results. [employer] | | | | | | [employer] [...] + + | Performing | Address | City/State/[facility] | Phone Number | | Organization | | | | + + + + + | [facility] | [address] | [place] | [phone] | | [facility] | | [address] | | | - LABORATORY | | [...] [address] | [place] | [phone] | | [facility] | | [address] | | | - LABORATORY | | [...] | | GLOMERULAR FILTRATION | mL/min/1.73m2 | [facility] | | | COLOMBIAN | RATE,ESTIMATED | | MEDICAL | | | | mL/min/1.45s1Dxle than | | CENTER - | | [...] | | | | | mg/dL | [facility] | | | | | | [...] [address] | [place] | [phone] | | [facility] | | [address] | | | - LABORATORY | | [...] [address] | [place] | [phone] | | [facility] | | [address] | | | - LABORATORY | | [...] The | | | | | | [employer] | | | | | [...] ST. | [address] | [place], [place] | [phone] | | [facility] | | [address] | | | - LABORATORY | | [...] TIMEOUT Before start of procedure done: Yes ROOM SERVICE FOOD SERVICE ATTENDANT: Delmer | | | Mila Gomez M.D., [...] Right femoral artery 6 | | | Citizen [place] CLOSURE DEVICE:. Sheath left in place as [...] | | | technique and a 6 [place] sheath was inserted. Selective coronary | | | arteriography was performed using 6 Citizen [place] Kymberly right 4 and left 4 | [...] | | will transfer the patient to [facility] for consideration of urgent | | | coronary revascularization. Delmer Gomez M.D., | | | Nora.Interventional CardiologistKadlec [facility] | | | [place], [place] | | | | | |CIRCUMFLEX [...] will transfer | | |the patient to [facility] for consideration of urgent coronary | | |revascularization. | | | | | |Delmer Gomez M.D., FHerreraC. | | |Local Hazmat Driver | | |[facility] | | |[place] | | | | | | [...] + | [facility] | [address] | [place] | [phone] | | [facility] | | [address] | | | - LABORATORY | | [...] MD | | | | | | ([id number]) on 10/04/2017 | | | | | [...] ST. | [address] | [place], [place] | [phone] | | [facility] | | [address] | | | - LABORATORY | | [...] + | [facility] | [address] | [place] | [phone] | | [facility] | | [address] | | | - LABORATORY | | [...] [address] | [place] | [phone] | | [facility] | | [address] | | | - LABORATORY | | [...] | | | | | mmol/L | [facility] | | | | | | [...] ST. | [address] | [place] | [phone] | | [facility] | | [address] | | | - LABORATORY | | [...] | | | | | | [employer] | | | | | [...] [address] | [place] | [phone] | | [facility] | | [address] | | | - LABORATORY | | [...] + | [facility] | [address] | [place] | [phone] | | [facility] | | [address] | | | - LABORATORY | | [...] [address] | [place] | [phone] | | [facility] | | [address] | | | - LABORATORY | | [...] + | [facility] | [address] | [place] | [phone] | | [facility] | | [address] | | | - LABORATORY | | [...] | | | | mmol/L | [facility] | | | | | | [...] mL/min/1.73m2 | [facility] | | | COLOMBIAN | RATE,ESTIMATED | | MEDICAL | | | | mL/min/1.82r6Zinf than | | CENTER - | | [...] [address] | [place] | [phone] | | [facility] | | [address] | | | - LABORATORY | | [...] [address] | [place] | [phone] | | [facility] | | [address] | | | - LABORATORY | | [...] Number 458 J Patient | | | [id number] Date of Study 10/03/2017 | | | Number Visit Number [id number] | | | Referring Physician BENEDICT RAYGOZA Number Date of | | | 1955 Welding Engineer WILBERT VANCE LORENZO | | | Age 61 year(s) Interpreting DELMER | | | Mila GOMEZ MD, | | | Datapower Developer [facility] Gender Male | | | Nurse Stress | | | Foundry Operator Procedure Type of Study TTE procedure: ECHO [...] Volume: 42.65 ml | | | EF Nlooypbuh33% Left | | | Ventricle Diastolic Dimension: [...] | Electronically signed by DELMER GOMEZ MD, [facility](Interpreting | | | physician) on 10/03/2017 12:59 [...] Volume: 42.65 ml | | | EF Tnzzvlcqd64% | | | | | | Left [...] Room Number 458 | | J Patient [id number] Date of Study 10/03/2017 Number Visit Number | | [id number] Referring Physician BENEDICT RAYGOZA Number | | Date of 1955 Welding Engineer WILBERT VANCE DEANNELORENZO Age | | 61 year(s) Interpreting DELMER GOMEZ MD, | | Datapower Developer FAC Gender Male 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 [...] ----- Electronically signed by DELMER GOMEZ MD, [facility](Interpreting physician) on | | 10/03/2017 12:59 | [...] LA Volume: 42.65 ml EF | | Jxseejjuf90% Left Ventricle Diastolic Dimension: 5.92 cm Septum [...] | Electronically signed by DELMER GOMEZ MD, [facility](Interpreting | | physician) on 10/03/2017 12:59 PM [...] LA Volume: 42.65 ml | | EF Sdpaiyqfr48% | | | | Left Ventricle | [...] + | [facility] | [address] | [place] | [phone] | | [facility] | | [address] | | | - LABORATORY | | [...] | chromogenic agar method | | [facility] | | | | | | [...] ST. | [address] | [place], [place] | [phone] | | [facility] | | [address] | | | - LABORATORY | | [...] [address] | [place] | [phone] | | [facility] | | [address] | | | - LABORATORY | | [...] | | | PCR | | | [facility] | | | | | | MEDICAL [...] + | [facility] | [address] | [place], [place] | [phone] | | [facility] | | [address] | | | - LABORATORY | | [...] [address] | [place] | [phone] | | [facility] | | [address] | | | - LABORATORY | | [...] + | [facility] | [address] | [place] | [phone] | | [facility] | | [address] | | | - LABORATORY | | [...] [address] | [place] | [phone] | | [facility] | | [address] | | | - LABORATORY | | [...] [address] | [place] | [phone] | | [facility] | | [address] | | | - LABORATORY | | [...] + | Performed at: 01 - [facility] [address] | REFERENCE LAB | | [id number] Funeral Greeter: Yesenia Gee MD, Phone: [phone] | [facility] | + + + + + + + + | Performing | Address | City/State/Zipcode | Phone Number | | Organization | | | | + + + + + | REFERENCE LAB | [address] | [place], [place] | [phone] | | [facility] | [place] | [address] | | + + + + + [...] + | [facility] | [address] | [place] | [phone] | | [facility] | | [address] | | | - LABORATORY | | [...] - 1.030 | [facility] | | | [place], | | | [facility] | | [...] [address] | [place] | [phone] | | [facility] | | [address] | | | - LABORATORY | | [...] | | | | First dose on [facility] 10/03/17 at | | AM PST | [...] | | First dose on [facility] 10/08/17 at 0915 | | | | [...] scheduled: AC, | | | NPO, Daytime 5516-5493 Use NIGHT | | | DOSE for doses scheduled: | | | HS, 3AM, Nighttime 0423-5998, | | + +---+ | | | [...]
--- OUTSIDE RECORDS SUMMARY | ~2020-03-04 | XMS | Encounter Summary ---
Demographics + + + | Address | [address] | | | [place] [address] | + + + | Home Phone [...] [place] | | | | | [address] | | + + + + + Care Team Providers + +------+ + | Care Assistant Brand Manager Name | Role | Phone | [...] Description | +--------+---------+ + + + | 09/20/ | Office | [facility] | Amy Olivares V, | Chronic systolic CHF | | 2020 | Visit | [facility] | MD [address] | (congestive heart | | | | [facility]ATION [address] [place] | failure) ([facility]) | | | | [address] [place] | [address] | (Primary Dx) | | | | [place] [address] | | | | | | [phone] | | | +--------+---------+ + + + [...] encounter Progress Notes Lorelei Cruz RRT - 09/20/2019 9:00 AM PSTPatient tolerated exercise session without an y complaints. Progression based on pt flow sheet. Continue support and progression. Appointment duration: 60 mins 10: 49 AM PSTdocumented in this encounter Plan of Treatment +--------+ + + + + | Date | Type | Specialty | Care Team | Description | +--------+ + + + + | 03/12/ | Office | Nephrology | Litzy, | | | 2019 | Visit | | ADARSH [address] | | | | | | [facility] | | | | | | [address] [place] [address] | | | | | | [id number] | | | | | | | | +--------+ + + + + | 04/16/ | Office | Cardiology | Alin Anderson | | | 2019 | Visit | | MD Cheryl Arreguin | | | | | | [address] | | | | | | [place] [address] | | | | | | [phone] | | | | | | | [...] [place] | | | | | | [address] | | | | | | | | +--------+ + + + + documented as of this encounter Visit Diagnoses + + | Diagnosis | + + | Chronic systolic CHF (congestive heart failure) (HCC) - Primary | + + documented in this encounter"
--- OUTSIDE RECORDS SUMMARY | ~2020-03-04 | XMS | Encounter Summary ---
Demographics + + + | Address | [address] | | | [place] [address] | + + + | Home Phone [...] [place], [place] | | | | | [address] | | + + + + + Care Team Providers + +------+ + | Care Manager Pmo Name | Role | Phone | + [...] | | involving | [address] | [place] | | | | | rincon | MARK[place]CGUIRE | [place] | | | | | coronary | [address] | [address] | | | | | artery of | Phone: | Phone: | | | | | rincon heart | [phone] | [phone] | | | | | without | Fax: | Fax: | | | | | angina | [phone] | [phone] | | | | | pectoris | | | +--------+ + + + + + Encounter Details +--------+---------+ + + + | Date | Type | Department | Care Team | Description | +--------+---------+ + + + | 09/21/ | Office | [facility] | Rahulyazshiraz Lindarahul, | Coronary artery | | 2019 | Visit | MED [facility] CARDIAC | MD [address] | disease, angina | | | | REHABILITATION [address] [place], | presence | | | | [address] [place] | [place] [address] | unspecified, | | | | [place] [address] | [phone] | unspecified vessel | | | | [phone] | | or lesion type, | | | | | | unspecified whether | | | | | | rincon or | | | | | | [...] CTR CARDIAC REHABILITATION [address] [place] [address] Cardiac Rehab Date: 09/21/2018 Patient Information Patient Name: Bob Will Date of : 1955 Age: 62 y.o. Encounter Diagnoses Code Name Primary? I25.10 Coronary artery disease, angina presence unspecified, unspecified vessel or lesi on type, unspecified whether rincon or transplanted heart Yes Number of Visits [...] [place] | | | | | | [address] | | | | | | | | +--------+ + + + + | 04/16/ | Office | Cardiology | Alin Anderson | | | 2019 | Visit | | MD Cheryl Arreguin | | | | | | [address] | | | | | | [place] [address] | | | | | | [phone] | | | | | | | [...] [place] | | | | | | [address] | | | | | | | | +--------+ + + + + documented as of this encounter Visit Diagnoses + + | Diagnosis | + + | Coronary artery disease, angina presence unspecified, unspecified vessel or lesion | | type, unspecified whether rincon or transplanted heart - Primary | + + documented in this encounter"
--- OUTSIDE RECORDS SUMMARY | ~2020-03-04 | XMS | Encounter Summary ---
Demographics + + + | Address | [address] | | | [place] [address] | + + + | Home Phone | | + + + | Preferred Language | Unknown | + + + | Marital Status | | + + + | Islam Affiliation | NRP | + + + | Race | White | + + + | Ethnic Group | Not or | + + + Author + + + | Author | [facility] | + + + | Organization | [facility] | + + + | Address | Unknown | + + + | Phone | Unavailable | + + + Support + + + + + | Name | Relationship | Address | Phone | + + + + + | [place] Will | ECON | [address] | | | | | [place] [address] | | + + + + + Care Team Providers + +------+ + | Care Sand System Operator Name | Role | Phone [...] | | 2018 | | Services at [facility] | [facility], [place] | Exam | | | | [address] | [address] | | | | | Tabitha Bello | | | | | | [facility] | | | | | | [place], [place] | | | | | | [address] | | | | | | [phone] | | | +--------+ + + + [...]
--- OUTSIDE RECORDS SUMMARY | ~2020-03-04 | XMS | Encounter Summary ---
Demographics + + + | Address | [address] | | | [place] [address] | + + + | Home Phone [...] [place] | | | | | [address] | | + + + + + Care Team Providers + +------+ + | Care Gerontology Aide Name | Role | Phone | [...] | | | [address] | [address] | (Primary Dx) | | | | [place] [address] | | | | | | [phone] | | | +--------+---------+ + + + [...] [place] | | | | | | [address] | | | | | | | | +--------+ + + + + | 04/16/ | Office | Cardiology | Alin Anderson | | | 2019 | Visit | | MD Cheryl Arreguin | | | | | | [address] | | | | | | [place] [address] | | | | | | [phone] | | | | | | | [...] [place] | | | | | | [address] | | | | | | | | +--------+ + + + + documented as of this encounter Visit Diagnoses + + | Diagnosis | + + | Chronic systolic CHF (congestive heart failure) (HCC) - Primary | + + documented in this encounter"
--- OUTSIDE RECORDS SUMMARY | ~2020-03-04 | XMS | Encounter Summary ---
Demographics + + + | Address | [address] | | | [place] [address] | + + + | Home Phone [...] [place], [place] | | | | | [address] | | + + + + + Care Team Providers + +------+ + | Care Justowriter Operator Name | Role | Phone | [...] + | 09/05/ | Implant | [facility] | Randy Figueroa, | Remote Device | | 2018 | Monitor | CARDIOLOGY [address] | Interrogation | | | | [place], | [place], | (Primary Dx); HAND BANDER-D | | | | [place] [address] | [place] [address] | (AICD) [employer] | | | | [phone] | [phone] | 10/16/17 [facility]; | | | | | [...] illator reprogramming/check; Biventricular ICD (implantable cardioverter-defibrillator) in ahnnah [place]dr[place]; Ischemic cardiomyopathyDate of Remote Interrogation: 07/20/18 [...] | | | | | [facility] | | | | | [...] | | | | | [place] [address] | | | | | | [phone] | | | | | | | [...] [place] | | | | | | [address] | | | | | | | [...] | e | 11:59 PM | Interrogation HAND BANDER-D | procedure are in the | | REMOTE | | PST | ([facility]) [employer] | results section. | | | | [...] Randy | DONNA | | MD [place] 08/05/2018 14:13Date of Remote Interrogation: | | | 07/20/18 Refer to [employer] documentation and remote PDF scanned into | | | [facility] for remote interrogation results. Data [...] | cardiac defibrillator | + + | HAND BANDER-D ASHLEE) [employer] 10/16/17 [facility] Darby | + + | Ischemic cardiomyopathy Other specified forms of chronic ischemic heart disease | + + documented in this encounter"
--- OUTSIDE RECORDS SUMMARY | ~2020-03-04 | XMS | Encounter Summary ---
Demographics + + + | Address | [address] | | | [place] [address] | + + + | Home Phone [...] [place], [place] | | | | | [address] | | + + + + + Care Team Providers + +------+ + | Care Retail Product Advisor Name | Role | Phone | + [...] + + | 01/13/ | Clinical | [facility] | Randy Figueroa, | Implantable | | 2018 | Support | CARDIOLOGY [address] [place] | defibrillator | | | | [place], | [place], | reprogramming/check | | | | [place] [address] | [place] [address] | (Primary Dx); INSTRUMENT REPAIR SPECIALIST-D | | | | [phone] | [phone] | (AICD) [employer] | | | | [...] encounter Procedure Notes Randy Figueroa MD - 01/13/2018 8:00 AM PDTAssociated Order(s): DEVICE INTERROGATIONPro cedure(s): DEVICE INTERROGATIONPre-Procedure Diagnose(s): Implantable defibrillator reprogra mming/check; Biventricular ICD (implantable cardioverter-defibrillator) in place; Ischemic c ardiomyopathy PATIENT NAME: Bob Will : 1955: AGE: 62 y.o. Pacemaker Evaluation Report January 13, 2018 Reason for evaluation: routine Indication for pacemaker: ICD-10-CM ICD-9-CM 1. Implantable defibrillator reprogramming/check Z45.02 V53.32 Device Interrogation 2. INSTRUMENT REPAIR SPECIALIST-D (AICD) [employer] 10/16/17 [facility] Z95.810 V45.02 Device Interrogation 3. Ischemic [...] | | | | [address] [place] [place] | | | | | | [address] | | | | | | | | +--------+ + + + + | 04/16/ | Office | Cardiology | Alin Anderson | | | 2019 | Visit | | MD Cheryl Arreguin | | | | | | [address] | | | | | | [place] [address] | | | | | | [phone] | | | | | | | [...] [place] | | | | | | [address] | | | | | | | | +--------+ + + + + documented as of this encounter Procedures + +--------+ + + + | Procedure Name | Priori | Date/Time | Associated Diagnosis | Comments | | | ty | | | | + +--------+ + + + | DEVICE INTERROGATION | Routin | 01/13/2018 | Implantable | Results for this | | | e | 8:00 AM | defibrillator | procedure are in the | | | | PDT | reprogramming/check | results section. | | | | | INSTRUMENT REPAIR SPECIALIST-D (AICD) | | | | | | [employer] 10/16/17 | | | | | | [facility]by | | | | | | Ischemic | | | | | | cardiomyopathy | | + +--------+ + + + documented in this encounter Results Device Interrogation (01/13/2018 8:00 AM PDT) + + + | Narrative | Performed At | + + + | Randy | DONNA | | MD [place] 01/13/2018 12:47 PATIENT NAME: Bob Will | | | : 1955: AGE: 62 y.o. Pacemaker Evaluation | | | Report January 13, 2018 Reason for evaluation: routineIndication for | | | pacemaker: ICD-10-CM ICD-9-CM 1. Implantable defibrillator | | | reprogramming/check Z45.02 V53.32 Device Interrogation 2. INSTRUMENT REPAIR SPECIALIST-D (AICD) | | | [employer] 10/16/17 [facility] Z95.810 V45.02 Device Interrogation | | | 3. Ischemic cardiomyopathy I25.5 414.8 Device Interrogation Patient | | | was seated and/or reclined and device was interrogated. Pacemaker | | | parameters, battery status, percentages [...] | report and device PDF for further details.Data collected by Kelly Samuel | | | ALFONSO Rodriguez Underlying rhythm: sinus rhythm 66-70 beats.0 mode switch | | | episodes accounting for 0.0% of the time. No episodes. No | | | tachycardia therapies recommended or delivered.PVC singles 1./7 | | | /hourPVC runs 1.1/hourBiventricular pacing 97.5%Optivol showing | | | an increase from baseline since December 2017.Histogram good. Battery | | | longevity 9.8 years.Normal and stable device function.Quarterly remote | [...] device PDF for further | | |details. | | |Data collected by Kelly Rodriguez RN | | | | | |Underlying rhythm: sinus rhythm 66-70 beats. | | |0 mode switch episodes accounting for 0.0% of the time. | | |No episodes. No tachycardia therapies recommended or delivered. | | |PVC singles 1./7 /hour | | |PVC runs 1.1/hour | | |Biventricular pacing 97.5% | | |Optivol showing an increase from baseline since December 2017. | | |Histogram good. Battery longevity 9.8 years. | | |Normal and stable device function. | | |Quarterly remote monitoring. | | |Device interrogation due in office in 12 months. | | | | | + + [...] implantable cardiac defibrillator | + + | INSTRUMENT REPAIR SPECIALIST-D ASHLEE) [employer] 10/16/17 [facility] Darby | + + | Ischemic cardiomyopathy Other specified forms of chronic ischemic heart disease | + + documented in this encounter"
--- OUTSIDE RECORDS SUMMARY | ~2020-03-04 | XMS | Encounter Summary ---
Demographics + + + | Address | [address] | | | [place] [address] | + + + | Home Phone [...] [place], [place] | | | | | [address] | | + + + + + Care Team Providers + +------+ + | Care Caustic Room Attendant Name | Role | Phone | [...] + | 01/13/ | Clinical | [facility] | Randy Figueroa, | Implantable | | 2018 | Support | CARDIOLOGY [address] | defibrillator | | | | [place], | [place], | reprogramming/check | | | | [place] [address] | [place] [address] | (Primary Dx); DIRECTOR QUALITY SYSTEMS-D | | | | [phone] | [phone] | (AICD) [employer] | | | | [...] defibrillator reprogramming/check Z45.02 V53.32 Device Interrogation 2. DIRECTOR QUALITY SYSTEMS-D (AICD) [employer] 10/16/17 [facility] Z95.810 V45.02 Device Interrogation 3. Ischemic [...] | | | | [address] [place] | | | | | | [address] | | | | | | | | +--------+ + + + + | 04/16/ | Office | Cardiology | Alin Anderson | | | 2019 | Visit | | MD Cheryl Arreguin | | | | | | [address] | | | | | | [place] [address] | | | | | | [phone] | | | | | | | [...] [place] | | | | | | [address] | | | | | | | [...] results section. | | | | | DIRECTOR QUALITY SYSTEMS-D (AICD) | | | | | | [...] | reprogramming/check Z45.02 V53.32 Device Interrogation 2. DIRECTOR QUALITY SYSTEMS-D (AICD) | | | [employer] 10/16/17 [facility] Z95.810 V45.02 Device Interrogation | | [...] implantable cardiac defibrillator | + + | DIRECTOR QUALITY SYSTEMS-D ASHLEE) [employer] 10/16/17 [facility] Darby | + + | Ischemic cardiomyopathy Other specified forms of chronic ischemic heart disease | + + documented in this encounter"
--- OUTSIDE RECORDS SUMMARY | ~2020-03-04 | XMS | Encounter Summary ---
Demographics + + + | Address | [address] | | | [place] [address] | + + + | Home Phone [...] [place], [place] | | | | | [address] | | + + + + + Care Team Providers + +------+ + | Care Private Branch Exchange Service Advisor Name | Role | Phone | [...] | | | | | | | [place] | | | | | | | [...] + + | 10/03/ | [facility] | Herman Masterson MD | NSTEMI (non-ST | | 2018 - | Encounter | [facility] | [address] | elevated myocardial | | | | [address] | MARKO HOWELL | infarction) (HCC); | | 10/10/ | | [place] [address] | [id number] | Ischemic | | 2018 | | [phone] | | cardiomyopathy; | | | | | Destinee Trejo MD | Community acquired | | | | | [address] | pneumonia, | | | | | [address] [address] [place] | unspecified | | | | | [address] | laterality; Acute | | | | | | upper GI bleed; | | | | | Ganga Lind, | Coronary artery | | | | | [address] | disease involving | | | | | [place] | [place] coronary | | | | | [id number] | artery of [place] | | | | | | heart [...] + | Blood Pressure | 116/71 | 10/10/2017 7:19 AM | | | | | PST | | + + + + + | Pulse | 94 | 10/10/2017 9:01 AM | | | | | PST | | + + + + + | Temperature | 36 C (96.8 F) | 10/10/2017 7:19 AM | | | | | PST | | + + + + + | Respiratory Rate | 18 | 10/10/2017 9:01 AM | | | | | PST | | + + + + + | Oxygen Saturation | 95% | 10/10/2017 9:01 AM | | | | | PST | | + + + + + | Inhaled Oxygen | - | - | | | Concentration | | | | + + + + + | Weight | 90.3 kg (199 lb 1.2 | 10/09/2017 5:00 AM | | | | oz) | [...] of known severe ischemic CAD/recent ant wall CT in 03/2017 c/b card iogenic shock s/p ECMO in [facility] 4. Paroxysmal atrial flutter Patient Active Problem List Diagnosis Acute anterior wall CT CAD (coronary artery disease) Ischemic cardiomyopathy Pulmonary [...] history of CAD with recent anterior wall CT, post PTCA and st ents of the left main, LAD and LCx on 03/15/17 + left atrial appendage thrombus c/b cardiac sh ock/respiratory failure requiring Tx to [facility]; was on ECMO, who was a transfer this time from [facility] on 10/03 for acute respiratory failure requiring intubation after prese nting with progressively worsening shortness of breath. Hospital Course, including Complications: He was found to have NSTEMI with new LBBB and elevated tropinin and Septic shock thought t o be from pneumonia/influenza; started on ceftriaxone, azithromycin and tamiflu. He underwen t C on 10/03- severe in-stent stenosis of [...] Gomez discussed with Luz Maria haynes at [facility] but patient refused to go to [place] for re-vascu larization. He preferred to go to [facility]. Dr. Gomez discussed with Dr. Bedoya at [facility] and he was accepted by him. 1. Acute hypoxic respiratory failure thought to be from septic shock 2/2 Pneumonia/influen za requiring Mechanical vent - Improving. Saturating well on RA - s/p extubation on 10/05 - weaning oxygen to Sp02>=94% , saturating 97% on 4 liters NC - continue ceftriaxone D#8/10. Completed 5 days of azithromycin and completed tamiflu x 6 days. . - continue BiPAP PRN - continue duonebs - [place] 2. Acute on chronic systolic CHF exacerbation - improving - On lasix PRN - strict I and O, daily weight - BiPAP PRN 3. NSTEMI in the setting of known severe ischemic CAD/recent ant wall CT in 03/2017 c/b card iogenic shock s/p ECMO in [facility] - troponin peaked to 26 - [facility] on 10/03- severe in-stent stenosis [...] - Dr. Gomez discussed with Cardiology at [facility] and was accepted at [facility] for re-vascularization but patient refused and wanted to be transferred to [facility]. Dr. Gomez discussed with cardiology at [facility] and was accepted by them. [...] results on DC: None Disposition: Transfer to [facility] cardiology service Dr. Bedoya accepting physician Discharge Procedure Orders Transfer patient to other facility Order Comments: [facility] when bed is available. Code Status/Advance Directive (Pertinent discussions/declarations): Full Code Time spent on Discharge and Coordination of post-hospital care: >30 minutes Electronically signed by: Destinee Trejo, 10/10/2017 15:01 [facility] documented in this en counter Medications [...] Oneal RN - 10/10/2017 3:55 PM PSTCalled [facility], RN informed that Lotus sabillon to call back this RN, phone number given. Electronically signed by: Rhea carroll RN 10/10/2017 15:58 Rhea Caal RN - 10/10/2017 1:59 PM PSTPatient called RN to bedside, patient to go to [facility], wants to get better and do the procedure. RN to inform MD Electronically signed by: Josselin Ventura RN 10/10/2017 14:00 Electronically signed by Rhea Ventura RN at 2:00 PM Rhea Caal RN - 10/10/2017 1:[address] [facility] about leaving against medical advice, patient verbalizing that we have done many interventions and that it is not a safe choice. RN at bedside, patient un derstands consequences and that he is leaving against medical advice. Electronically signed by: Rhea Ventura RN 10/10/2017 13:08 Miguel Mcmanus ph, MD - 10/09/2017 2:59 PM PST . [...] will be transferred today to [facility] for coronary revascularization. MEDICATIONS: Current Facility-Administered [...] infectious process. Dictated and Signed by: Alin Raímrez MD Electronically signed: 10/03/2017 12:41 PM DIAGNOSES [...] on amiodarone PLAN OR RECOMMENDATIONS: Transfer to [facility] audiology service Dr. Segura accepting physician I appreciate the opportunity of participating in the care of this patient. Delmer Gomez MD, 10/09/2017 15:00 Destinee Espinoza MD - 10/09/2017 8:16 AM PST [facility] PMG Hospitalist Progress Note Ron Hood is a 61 y.o. male INTERVAL HPI: He is a 61 y.o. male with a history of CAD with recent anterior wall CT, post PTCA and sten ts of the left main, LAD and LCx on 03/15/17 + left atrial appendage thrombus c/b cardiac shoc k/respiratory failure requiring Tx to [facility]; was on ECMO, who was a transfer this time from [facility] on 10/03 for acute respiratory [...] of known severe ischemic CAD/recent ant wall CT in 03/2017 c/b card iogenic shock s/p ECMO in [facility] - troponin peaked to 26 - [facility] on 10/03- severe in-stent stenosis [...] Gomez will consult with cardiology team at [facility] Re: planning for revascularization today 4. Paroxysmal [...] outlined above. Destinee Trejo 10/09/2017 8:16 [facility] Destinee Espinoza MD - 10/08/2017 12:20 PM PST [facility] PMG Hospitalist Progress Note Ron Hood is a 61 y.o. male INTERVAL HPI: He is a 61 y.o. male with a history of CAD with recent anterior wall CT, post PTCA and sten ts of the left main, LAD and LCx on 03/15/17 + left atrial appendage thrombus c/b cardiac shoc k/respiratory failure requiring Tx to 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 - troponin peaked to 26 [...] Gomez will consult with cardiology team at [facility] Re: planning for revascularization today 4. Paroxysmal [...] outlined above. Destinee Trejo 10/08/2017 12:20 [facility] Destinee Espinoza MD - 10/07/2017 2:38 PM PST [facility] PMG Hospitalist Progress Note Ron Hood is a 61 y.o. male INTERVAL HPI: He is a 61 y.o. male with a history of CAD with recent anterior wall CT, post PTCA and sten ts of the left main, LAD and LCx on 03/15/17 + left atrial appendage thrombus c/b cardiac shoc k/respiratory failure requiring Tx to [facility]; was on ECMO, who was a transfer this time from [facility] on 10/03 for acute respiratory [...] of known severe ischemic CAD/recent ant wall CT in 03/2017 c/b card iogenic shock s/p ECMO in [facility] - troponin peaked to 26 [...] Gomez will consult with cardiology team at [facility] Re: planning for revascularization 4. Paroxysmal atrial [...] outlined above. Destinee Trejo 10/07/2017 14:38 [facility] Delmer Mcmanus MD - 10/07/2017 12:07 PM [...] ALFONSO Burnett MD 2 tablet at 10/09/17 1026 [...] RECOMMENDATIONS: Continue current medical management We'll contact [facility] regarding transfer and revascularization plann [...] orally BID Carlos Graham PharmD 10/07/2017 9:59 [facility] IV TO PO Collaborative Practice Protocol [...] Herman Masterson MD 6 50 mg at 10/05/17 2024 albuterol-ipratropium (DUONEB) 2.5-0.5 mg/3 mL nebulizer solution [...] capsule 75 mg 75 mg Oral BID Sheyla WinklerD 75 mg at 10/06/17 0831 pantoprazole (PROTONIX) [...] troponin Will consult with cardiology team at [facility] regarding planning for coronary revascularization prior to discharge home I appreciate the opportunity of participating in the care of this patient. Delmer Gomez MD, 10/06/2017 17:17 Destinee Espinoza MD - 10/06/2017 12:45 PM PST [facility] PMG Hospitalist Progress Note Ron Hood is a 61 y.o. male INTERVAL HPI: He is a 61 y.o. male with a history of CAD with recent anterior wall CT, post PTCA and sten ts of the left main, LAD and LCx on 03/15/17 + left atrial appendage thrombus c/b cardiac shoc k/respiratory failure requiring Tx to 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 - troponin peaked to 26 [...] outlined above. Destinee Trejo 10/06/2017 12:45 [facility] Clinton Hernandez MD - 10/05/2017 9:17 PM [...] - 10/05/2017 5:27 PM PSTFormatting of this izzy butt might be different from the original. PATIENT [...] Herman Masterson MD 6 50 mg at 10/05/17 2024 albuterol-ipratropium (DUONEB) 2.5-0.5 mg/3 mL nebulizer solution [...] Terry Weir MD at 10/05 10:50 AM PSTParyumiko, Clinton Butt MD - 10/05/2017 9:39 AM PST [facility] PMG Hospitalist Progress Note Ron Hood [...] outlined above. Clinton Burnett 10/05/2017 9:39 [facility] Portions of this chart may have been created with [employer] voice recognition software. Occasi onal wrong-word or sound-alike substitutions may have occurred due to the inherent canseco itations of voice recognition software. Please read the chart carefully and recognize, using context, where these substitutions have occurred arkerClinton MD - 0 10/04/2017 12:41 PM PST [facility] PMG Hospitalist Progress Note Ron Hood [...] outlined above. Clinton Burnett 10/04/2017 12:42 [facility] Portions of this chart may have been created with [employer] voice recognition software. Occasi onal wrong-word or [...] :consider ischemia/infarction Confirmed by ZOHRA BREWER, FLORY ([id number]) on 10/04/2017 10:35:54 AM Influenza A PCR [...] 10/03/2017 5.0 5.0 - 8.0 Final Specific [place] 10/03/2017 1.006 1.001 - 1.030 Final PROTEIN [...] hazy she is yesterday 1 1:06 AM Kelly Mcgee, PharmD - 10/03/2017 9:24 PM PST PHARMACY [...] due to: Intubated X Pharmacy list names: [facility] and [facility] X [employer] insurance reported information X [...] as needed for suspected pain medication overdose Lgkjdep-rgmilbkbbvsoi-xgbdqipb 250-250-65 mg tab 1 tab by mouth [...] Prior to Admission Sig: Patient taking differently MERCHANT SEAMAN as: Lisinopril 5 mg tab 15 mg by mouth daily 5 mg by mouth every morning and 10 mg every eveni ng Medication review performed and electronically signed by Melody Falcon, Bit Sander 20:26 Reviewed by Kelly Pitts, PharmKatie 10/03/2017 21:22 Delmer Mcmanus MD - 10/03/2017 [...] for his cardio logy care. Clarita Morales PharmD - 10/03/2017 11:44 AM PSTFormatting of this [...] might be different fr om the original. [place], [place] HOSPITALIST HISTORY & PHYSICAL Patient: Ron Hood : 1955: Age: 61 y.o. MedRec: [id number] Admission date: 10/03/2017 Hospital day # : 0 Physician author: Ganga Lind MD Today: 10/03/2017 CHIEF COMPLAINT: Hypoxic respiratory failure HISTORY OF PRESENT ILLNESS: This is a 61 y.o. male with a history of coronary artery disease post recent anterior wall CT, post PTCA and stents of the left main, LAD and LCx on 03/15/17, cardiac shock, left atrial appendage thrombus who presented to [facility] for progressively worsening shortn ess of [...] mild hypokinesis of the anterior wall. Hospitalized: [facility] 03/15-04/02/17 transferred 03/15in acute cardiogenic [...] Medical History: Diagnosis Date Acute anterior wall CT (HCC) 04/03/2017 Angiography and stent 03/15/2017 successful [...] Cor Angio; Surgeon: Monse Ross MD; Location: [facility] CV LAB ELBOW SURGERY Left GALLBLADDER [...] 1 tablet by mouth Daily. 90 tablet Hansa Sim candelaria ASSESSMENT NURSE PRACTITIONER GABAPENTIN PO Take 2 capsules by mouth 3 times daily. Historical Provider, lisinopril (PRINIVIL, ZESTRIL) 5 mg tablet Take 3 tablets by mouth Daily. 210 tablet Vondael yshiraz Alvarado ASSESSMENT NURSE PRACTITIONER metFORMIN (GLUCOPHAGE) 500 mg tablet Take by [...] Status Full Medical Decision Maker [place] Hood [phone] DVT Prophylaxis Warfarin PLAN: Acute hypoxic respiratory failure possibly 2/2 to pulmonary edema in setting of Acute systo lic heart failure +/- CAP with concern for ARDS Unable to obtain history. Patient had complicated admission in [place] with recent IABP placem ent, anterior STEMI [...] Completedheparin gtt bridge 03/29 to the rapeutic warfarin Currently does not appear to be on warfarin, possibly discontinued after 3 months, will nee d med rec History of Chronic ischemic CMP (EF 50-55% in 06/04/17) Holding carvedilol, lisinopril given hypotension FEN: NPO PPX: Lovenox [facility] Documentation I expect this patient will be hospitalized for greater than 2-midnights and expect the post -hospital plan to be discharge to home or to an adult foster home. Electronically signed by: Ganga Lind MD 10/03/2017 10:02 [facility] documented in this e ncounter Procedure Notes Delmer Gomez MD - 10/03/2017 4:06 PM PSTAssociated Order(s): CV CARDIAC PROCEDUREPre-Pr ocedure Diagnose(s): NSTEMI (non-ST elevated myocardial infarction) (HCC)Post-Procedure Diag nose(s): NSTEMI (non-ST elevated myocardial infarction) (HCC)CARDIAC CATHETERIZATION REPORT DATE OF PROCEDURE: 10/03/17 PRECATHETERIZATION INFORMED CONSENT : Yes TIMEOUT Before start of procedure done: Yes CORE MOUNTER: Delmer Gomez M.D., F.A.C.C. PRIMARY PHYSICIAN: Chato Matson MD PROCEDURES PERFORMED: Left heart catheterization, selective coronary arteriography INDICATIONS : 61-year-old gentleman presenting with acute hypoxic respiratory failure, new left bundle branch block, increasing troponin levels, history of coronary artery PCI and pr ior anterior myocardial infarction ARTERIAL ACCESS: Right femoral artery 6 Chinese CLOSURE DEVICE:. Sheath left in place as [...] a modified Seldinger technique and a 6 Chinese sheath was inserted. Selective coronary arteriography was performed using 6 Chinese Kymberly right 4 and left 4 catheters. [...] instability we will transfer the patient to [facility] for consideration of urgent coronary revascularization. Delmer Gomez M.D., F.A.C.C. [employer] [place], [place] documented in this enc ounter Consult [...] occlusion. The patient was transferred emergently to [facility] in [facility] his stents were implanted and no further [...] chest pain. The patient was transferred to [facility] where ECG showed left b undle [...] Medical History: Diagnosis Date Acute anterior wall CT (HCC) 04/03/2017 Angiography and stent 03/15/2017 successful [...] Cor Angio; Surgeon: Monse Ross MD; Location: [facility] ELBOW SURGERY Left GALLBLADDER [...] (NS) infusion Intravenous Continuous Ganga Lind MD [facility] list of outpatient meds: Prescriptions Prior to [...] 10/03/2017 5.0 5.0 - 8.0 Final Specific [place] 10/03/2017 1.006 1.001 - 1.030 Final PROTEIN [...] Miscellaneous Notes Plan of Care - Bob Gonzalez DESIGN ENGINEERING TECHNICIAN - 10/10/2017 3:44 PM PSTProblem: Patient Care Overfrederic w (Adult) Goal: Care Team Goals & Evaluation [...] Ron is now subhash ng transferred to [facility] for further treatment of his heart issues. RT goal met. Call RT for any respiratory concerns. lan of Care - Clinton Jeffries Jr. DESIGN ENGINEERING TECHNICIAN - 10/10/2017 5:26 AM PSTProblem: Patient Care [...] on room air, denied shortness of breath. [place] 2 tabs given for complain of back [...] this note might be different from alie butt original. Problem: Patient Care Overview (Adult) Goal: [...] ADLs Long-sleeved shirt. UB Dressing, Level of Clinton: set up required UB Dressing Assess/Train, Position: sitting UB Dressing Assess/Train, Impairments: decreased flexibility Already wearing pants, but can doff/don socks by crossing legs. LB Dressing, Level of Clinton: set up required, supervised LB Dressing Assess/Train, Position: sitting, standing LB Dressing Assess/Train, Impairments: strength decreased Toileting, Level of Clinton: supervised Toileting Assess/Train, Impairments: postural control impaired, [...] improved w/ height adjustment. Sit-Stand, Level of Clinton: SBA Stand-Sit, Level of Clinton: stand by assist Xho-Oqecr-Qca, Assistive Device: 4 wheeled walker (4WW) Toilet, Level of Clinton: stand by assist Toilet, Assistive Device: 4 [...] STG Status met at 10/09/2017 1700 STG Clinton Level stand by assist at 10/07/2017 1157 STG Position supported standing, standing at 10/07/2017 1157 STG Adaptive Equipment none at 10/07/2017 1157 Toilet Transfer Goal Flowsheet Row Most Recent Value STG Status met at 10/09/2017 1700 STG Clinton Level stand by assist, set up required, verbal cues required at 8 1157 STG Assistive Device 2 wheeled walker (FWW), commode (3 in 1) [BSC over toilet] at 018 1157 Electronically signed by: Tamia Alvarado OT, 10/09/2017 17:01 lan of Care - Merrill Early, [employer]CHANT SEAMAN - 10/09/2017 11:50 AM PST Problem: Patient [...] are: Recommended discharge disposition: inpatient rehabilitation facility, shelter faci lity (vs, TBD) Post discharge physical [...] use 4 ww from home Level of Clinton: stand by assist Assistive Device: 4 wheeled [...] l ess O2 required Sit-Stand, Level of Clinton: stand by assist Stand-Sit, Level of Clinton: stand by assist Sap-Hwdwe-Dfv, Assistive Device: 4 wheeled walker (4WW) Toilet, Level of Clinton: contact guard assist Toilet, Assistive Device: 4 [...] STG Status progressing at 10/08/2017 1130 STG Clinton Level modified independent at 10/06/2017 1340 Xkb-Nhvoe-Hbq Goal Flowsheet Row Most Recent Value STG Status progressing at 10/09/2017 1157 STG Clinton Level modified independent at 10/06/2017 1340 STG Assistive Device 4 wheeled walker (4WW) at 10/06/2017 1340 Gait Goal Flowsheet Row Most Recent Value STG Status progressing at 10/09/2017 1157 STG Clinton Level modified independent at 10/06/2017 1340 STG Assistive Device 4 wheeled walker (4WW) at 10/06/2017 1340 STG Distance (feet) 50 at 10/06/2017 1340 Stair Goal Flowsheet Row Most Recent Value STG Status new at 10/06/2017 1340 STG Clinton Level modified independent at 10/06/2017 1340 STG Assistive Device 2 rails at 10/06/2017 1340 STG Number of Stairs 4 at 10/06/2017 1340 Electronically signed by: Merrill Evans PTA, 10/09/2017 11:58 lan of Care - Kelly Rivera, DESIGN ENGINEERING TECHNICIAN - 10/09/2017 5:57 AM PSTProblem: Patient Care [...] GOALS: Goal Evaluation: Jenaro was able to be wean from high [...] Patient on NC @ 5L O2, improving. [place] given for chron ic neck pain x2. Droplet precautions maintained. F/C d/c'ed 10/08/17, UOP good. Up in chair x2 . lan of Care - Shoaib Leary, BARRON - 10/08/2017 3:10 PM PSTProblem: Patient Care [...] continue to monitor and treat. lan of [facility] - Arleth Craig, ALFONSO - 10/08/2017 2:03 PM PSTProblem: Discharge Planning Goal: Patient will be discharged in a safe manner Outcome: Unchanged I called Mrs. Hood and let her know that I had spoken to Christine Radha this afternoon reg arding a [employer] application. I placed it in the patient's ghost chart and let her know eliza t she needed to ask her 's RN to retrieve it for her. I instructed her to turn it in to the [employer] Administrator's Office when completed and they would answer any questions she may have as Christine Garcia will be gone tomorrow. I let her know what documents she would need to have to c omplete the application as well. I faxed a referral to [facility] through [facility] as well as she has no had time to visit the other SNFs yet. Electronically signed by: Arleth Vincent RN 10/08/2017 14:03 lan of Care - Merrill German, MERCHANT SEAMAN - 10/08/2017 11:00 AM PSTFormatting of this [...] are: Recommended discharge disposition: inpatient rehabilitation facility, shelter faci lity (vs, TBD) Post discharge physical [...] pt much happier using it Level of Clinton: contact guard assist, verbal cues required Assistive [...] d/t high flow NC Bed-Chair, Level of Clinton: contact guard assist, verbal cues required, set up requir ed Chair-Bed, Level of Clinton: not tested Zdx-Gkazz-Dlo, Assistive Device: 2 wheeled walker (FWW) Sit-Stand, Level of Clinton: verbal cues required, contact guard assist, set up requir ed Stand-Sit, Level of Clinton: contact guard assist, verbal cues required, set up requir ed Fed-Ymqai-Oax, Assistive Device: 2 wheeled walker (FWW) Safety [...] STG Status progressing at 10/08/2017 1130 STG Clinton Level modified independent at 10/06/2017 1340 Ymj-Iulrb-Kse Goal Flowsheet Row Most Recent Value STG Status progressing at 10/08/2017 1130 STG Clinton Level modified independent at 10/06/2017 1340 STG Assistive Device 4 wheeled walker (4WW) at 10/06/2017 1340 Gait Goal Flowsheet Row Most Recent Value STG Status progressing at 10/08/2017 1130 STG Clinton Level modified independent at 10/06/2017 1340 STG Assistive Device 4 wheeled walker (4WW) at 10/06/2017 1340 STG Distance (feet) 50 at 10/06/2017 1340 Stair Goal Flowsheet Row Most Recent Value STG Status new at 10/06/2017 1340 STG Clinton Level modified independent at 10/06/2017 1340 STG Assistive Device 2 rails at 10/06/2017 1340 STG Number of Stairs 4 at 10/06/2017 1340 Electronically signed by: Merrill Evans PTA, 10/08/2017 11:32 lan of Care - Kelly Rivera, DESIGN ENGINEERING TECHNICIAN - 10/08/2017 5:56 AM PSTProblem: Patient Care [...] multiple times; 1 person assist , with Luke WATT for pain with moderate improvement. lan of [...] intermittent pi nk/white thick sputum. VSS day. [place] x3 for generalized pain. continues to refuse to w ear mask for positive flu in room, agreed to wear mask when leaving pt. Room. lan of Care - Arleth Craig RN - 10/07/2017 6:45 PM PSTProblem: Discharge Planning Goal: Patient will be discharged in a safe manner Outcome: Unchanged I visited with Mr and Mrs Hood this afternoon regarding discharge planning. They live in [place], [place] a mobile home with four steps with a handrail leading to the entrance. He is normally independent and drives. They are very concerned regarding this hospital bi and I called and left a message for Christine Garcia from [employer] requesting a visit tomorrow to see if they are eligible for any services or lotus. His PCP is Dr. Matson. Darshan butt is a [place] and is 40% service connected per Lulu at the [place]. He uses the [facility] or the [place] pharmacy. He owns a WC, a 4WW and a cane. He chose [facility] as his D MS agency of choice. We also discussed [facility] in [place] and the [place] for DME. He is ag reeable to Home Health services as well. For a "Plan B" he chose: 1) [place] and Mrs Sania Noble will take a look at [facility], [facility] and Tabitha parry nd let me know their second and third choices. I placed the preference sheets in the ghost chart. She will transport him home if he discharges home straight from the hospital. CM pl ease continue to follow. Electronically signed by: Arleth Vincent RN 10/07/2017 18:45 Discharge Disposition: TBD lan of Care - Renata Church RRT - 10/07/2017 5:36 PM PSTProblem: [...] He is agr eeable. Electronically signed by: Renata Linda RRT 10/07/2017 17:36 lan of Care - [...] at level safe for home d ischarge, AMPAC indicating significant impairment with basic functional mobility and medical status. Ron will benefit from continued therapeutic intervention to address ongoing impairments and increase safety and independence with activities necessary for safe discharge. Refer be low for specific details regarding functional levels. Physical Therapy Discharge Recommendations are: Recommended discharge disposition: inpatient rehabilitation facility, shelter faci lity (vs, TBD) Post discharge physical [...] still limited by high flow Level of Clinton: minimal assist (75% patient effort) Assistive Device: 2 wheeled walker (FWW) Distance (feet): 3 Transfers impaired activity tolerance, cues for safety and hand placement; limited mobility d/t on hi gh flow NC Bed-Chair, Level of [place]: contact guard assist, verbal cues required, set up requir ed Chair-Bed, Level of [place]: not tested Tkv-Ysidx-Ifb, Assistive Device: 2 wheeled walker (FWW) Sit-Stand, Level of [place]: verbal cues required, tactile cues required, contact guar d assist Stand-Sit, Level of [place]: contact guard assist, verbal cues required Mog-Czxgg-Ifm, Assistive Device: 2 wheeled walker (FWW) Impairments: strength decreased, impaired balance Bed Mobility increased time, assist for line management Supine to Sit, Level of [place]: moderate assist (50% patient effort), verbal cues [...] STG Status progressing at 10/07/2017 1340 STG [place] Level modified independent at 10/06/2017 1340 Mtd-Jtkor-Jgy Goal Flowsheet Row Most Recent Value STG Status progressing at 10/07/2017 1340 STG [place] Level modified independent at 10/06/2017 1340 STG Assistive Device 4 wheeled walker (4WW) at 10/06/2017 1340 Gait Goal Flowsheet Row Most Recent Value STG Status progressing at 10/07/2017 1340 STG [place] Level modified independent at 10/06/2017 1340 STG Assistive Device 4 wheeled walker (4WW) at 10/06/2017 1340 STG Distance (feet) 50 at 10/06/2017 1340 Stair Goal Flowsheet Row Most Recent Value STG Status new at 10/06/2017 1340 STG [place] Level modified independent at 10/06/2017 1340 STG Assistive Device 2 rails at 10/06/2017 1340 STG Number of Stairs 4 at 10/06/2017 1340 Electronically signed by: Mirna Galo, PT, 10/07/2017 13:47 lan of Care - Flavio fitzpatrick, Clau Lui, OT - 10/07/2017 12:06 PM PSTFormatting of this note might be different from alie butt original. Problem: Patient Care Overview (Adult) Goal: [...] pt on high flow O2 - see and P for details. Objective exam reveals [...] Therapy Discharge Recommendations are: Recommended discharge disposition: shelter facility Post discharge occupational therapy recommendation: will [...] line mgmt. Supine to Sit, Level of [place]: minimal assist (75% patient effort), verbal cues requ ired, tactile cues required, set up required, 1 person + 1 person to manage equipment Sit to Supine, Level of Clinton: not tested Safety Issues: decreased use of arms for pushing/pulling, decreased use of legs for bridgin g/pushing Impairments: strength decreased, impaired balance Transfers Impaired activity tolerance, cues for safety, hand plcmt on FWW. Pt still on high flow O2 so limited in mobility. Bed-Chair, Level of Clinton: contact guard assist, verbal cues required, set up requir ed, 1 person + 1 person to manage equipment Sit-Stand, Level of [place]: 1 person + 1 person to manage equipment, verbal cues requ ired, tactile cues required, contact guard assist Stand-Sit, Level of [place]: contact guard assist, 1 person + 1 person to manage equip ment, verbal cues required Tgi-Ihreb-Mvf, Assistive Device: 2 wheeled walker (FWW) Impairments: strength decreased, impaired balance OT Goal Review Date Flowsheet Row Most Recent Value STG Review Date 10/10/17 at 10/07/2017 1157 Grooming Goal Flowsheet Row Most Recent Value STG Status new at 10/07/2017 1157 STG Clinton Level stand by assist at 10/07/2017 1157 STG Position supported standing, standing at 10/07/2017 1157 STG Adaptive Equipment none at 10/07/2017 1157 Toilet Transfer Goal Flowsheet Row Most Recent Value STG Status new at 10/07/2017 1157 STG Clinton Level stand by assist, set up required, verbal cues required at 8 1157 STG Assistive Device 2 wheeled walker (FWW), commode (3 in 1) [BSC over toilet] at 018 1157 Electronically signed by: Clau Ramírez OT, 10/07/2017 12:03 lan of Care - [...] bridging to PO tomorrow. PO metoprolol held. [place] X 3 for pain. continues to refuse to wear ma sk for positive flu in room, agreed to wear mask when leaving pt. Room. lan of Care - Ron Denton, DESIGN ENGINEERING TECHNICIAN - 10/06/2017 4:20 PM PSTProblem: Patient Care [...] mo tor exam, PO trials and performance. CHILDREN'S COURT MAGISTRATE recommends diet upgrade to regular textures with th in lquids with pt always upright in chair for meals. CHILDREN'S COURT MAGISTRATE educated pt on pacing himself when eating. Staff to cut food for him d/t mild UE weakness, reduced dexterity. Pt verbalized und erstanding. No further skilled CHILDREN'S [facility] MAGISTRATE services needed at this time. Textures attempted [...] 3 days. He correctly recalled being in [place] and that his had t o remind him that this AM as he thought he was at [facility]. Patient pleasant and agreeable. Re [...] high flow O2 needs Chair-Bed, Level of Clinton: minimal assist (75% patient effort), 1 person + 1 person to manage equipment, verbal cues required, tactile cues required Zha-Ckqfh-Rhl, Assistive Device: 2 wheeled walker (FWW) Sit-Stand, Level of [place]: minimal assist (75% patient effort), 1 person + 1 person to manage equipment, verbal cues required, tactile cues required Stand-Sit, Level of [place]: contact guard assist, 1 person + 1 person to manage equip ment, verbal cues required Vpd-Ayicu-Icd, Assistive Device: 2 wheeled walker (FWW) Impairments: strength decreased, impaired balance (activity tolerance) Bed Mobility increased time and cues for safety Supine to Sit, Level of Clinton: moderate assist (50% patient effort), 1 person [...] Strength: gross deconditioning due to prolonged bedrest [facility] BASIC MOBILITY [facility] BASIC MOBILITY Turning over in bed: a [...] steps with a railing: dependent/unable TOTAL - [facility] BASIC MOBILITY : 14 Completed the [facility] Activity Measure for Post Acute Care (-PAC) "6 Clicks" Ba sic Mobility Inpatient Short Form. This version of the AM-PAC is an assessment tool used to measure a person's level of disability in performing basic mobility tasks. This patient's score indicates a performance of 61.29% impairment in the functioning of basic mobility. Raw Score - Functional Limitation % (for [facility]) - "Severity Modifier" CN 6 - 100.00 [...] STG Status new at 10/06/2017 1340 STG [place] Level modified independent at 10/06/2017 1340 Iax-Imkkf-Nkz Goal Flowsheet Row Most Recent Value STG Status new at 10/06/2017 1340 STG [place] Level modified independent at 10/06/2017 1340 STG Assistive Device 4 wheeled walker (4WW) at 10/06/2017 1340 Gait Goal Flowsheet Row Most Recent Value STG Status new at 10/06/2017 1340 STG [place] Level modified independent at 10/06/2017 1340 STG Assistive Device 4 wheeled walker (4WW) at 10/06/2017 1340 STG Distance (feet) 50 at 10/06/2017 1340 Stair Goal Flowsheet Row Most Recent Value STG Status new at 10/06/2017 1340 STG Clinton Level modified independent at 10/06/2017 1340 STG [...] Evaluation: Extubated yesterday afternoon. On bipap overnight. [place]wood X 3 given for pain. A/O slight [...] patient's facial hair. lan of Care - Renata Church RRT - 10/05/2017 6:11 PM PSTProblem: [...] support cardiac function. Electronicall y signed by: Renata Linda RRT 10/05/2017 18:10 p Note - Jesse [...] Endoscopy Patient: Ron Hood : 1955 Acct: [id number] Exam Date: Thursday, October 05, 2017 Doctor: [...] If unable to reach your physician, call [facility] Emergency Department at Ext. 2500 Your [...] Terry Weir MD at 11:30 AM PSTPlan of Care - Blanche Fine, DESIGN ENGINEERING TECHNICIAN - 10/05/2017 5:31 AM PSTProblem: [facility] ([facility] Goal: Care Team Goals [...] am. VSS. Afebrile ov ernight. lan of Care - Amelia Tello RRT - 10/04/2017 6:07 PM PSTProblem: Patient [...] remains on PPV, looks comfortable. lan of Care - Demetra Barron RN - 10/04/2017 4:34 PM PSTProblem: Restraint/Seclusion Use for Patient Safety Goal: Individualization/Patient-Specific Restraint Care Individualization: Patient's unique needs, preferences, requests, personal goals, or care interventions/approaches. Outcome: Improving lan of [facility] - Demetra Vaughn RN - 10/04/2017 4:31 PM [...] AM PSTDischarge planning: Ron is currently intubated. CM will need to follow up once he is extubated. Ron lives with his spouse in [place]. Ron is normally independent with his needs. Ron [facility] for his pharmacy. PCP: Dano CM will need to follow up with Ron closer to discharge. Electronically signed by: Keyonna Goel 10/04/2017 11:51 lan of [facility] - Junior Villanueva Chaplain - 10/04/2017 10:30 [...] who is admitted for Pulmonary edema [J81.1]. Food Management Aide visit was part of routine rounding. Spiritual Evaluation: Patient was sleeping. Debbie was resting at his bedside. She was hopeful about his cond ition and said that he is doing better today than yesterday. 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 She s aid that she was raised [employer], but is open religiously at this point. She desired rest t his morning. Spiritual Interventions: Global Project Manager attended, offered care, listened actively, and explored meaning. Spiritual Outcomes: Debbie appreciated spiritual care and seemed able to cope with the situation. Spiritual Goals/Follow-up: Follow up as needed. lan of Care - Ashleigh Pack, RN - 10/04/2017 4:51 AM PSTProblem: Patient [...] d cardiology, patient went for [facility] with findings of: severe in-stent stenosis of L main to o stial LAD stent, Severe in-stent stenosis ostial proximal L circ stent. Patient was recommen ded if patient had cardiac instability to be [facility], fluid support. Hep gtt was not recommended. Patient will be continued on plavix, ASA, statin. Patient was continued on azithromycin, ceftriaxone . Maintenance IVFs was started given L ventricular filling pressures and unchanged Ef. Patie nt was weaned off levophed during the day. Awaiting for cultures. lan of [facility] - Shoaib Bueno DESIGN ENGINEERING TECHNICIAN - 018 6:51 PM PSTProblem: Patient Care [...] Evaluation: Patient was a direct admit from [facility]. Respiratory Failure. Tested positive for influe nza B. Taken to cathlab today. Titrating down on FIo2. On 90%, VT550, SIMV 22, Peep 5, PS 10 . BS coarse. Sputum to lab. Will continue to monitor and follow. lan of [facility] - Demetra Garcia RN - 10/03/2017 1:38 PM PSTProblem: Patient Care [...] | | | | [address] [place] | | | | | | [address] | | | | | | | | +--------+ + + + + | 04/16/ | Office | Cardiology | Alin Anderson | | | 2019 | Visit | | MD [address] | | | | | | [address] | | | | | | [place] [address] | | | | | | [phone] | | | | | | | | +--------+ + + + + | 04/16/ | Procedure | Cardiology | | | | 2019 | visit | | | | +--------+ + + + + | 04/25/ | Office | Cardiology | Rocio Pearl, | | | 2020 | Visit | | MD [address] | | | | | | [place], [place] | | | | | | [address] | | | | | | | [...] [address] | [place] | [phone] | | [facility] | | [address] | | | - LABORATORY | | [...] + | [facility] | [address] | [place] | [phone] | | [facility] | | [address] | | | - LABORATORY | | [...] [address] | [place] | [phone] | | [facility] | | [address] | | | - LABORATORY | | [...] ST. | [address] | [place] | [phone] | | [facility] | | [address] | | | - LABORATORY | | [...] [address] | [place] | [phone] | | [facility] | | [address] | | | - LABORATORY | | | | + + + + + POC Glucose (10/09/2017 6:38 AM PST) + +-------+ + + + | Component | Value | Ref Range | Performed | Pathologist | | | | | At | Signature | + +-------+ + + + | Glucose, | 109 | 70 - 109 mg/dL | [facility] | | | POC | | | [facility] | | | | | [...] + | [facility] | [address] | [place] | [phone] | | [facility] | | [address] | | | - LABORATORY | | [...] [address] | [place] | [phone] | | [facility] | | [address] | | | - LABORATORY | | [...] | | | FILTRATION | mL/min/1.73m2 | [facility] | | | BHUTANESE | RATE,ESTIMATED | | MEDICAL | | | | mL/min/1.80u9Bzor than | | CENTER - | | [...] | | | | | mg/dL | [facility] | | | | | | MEDICAL | | | | | | CENTER - | | | | | | LABORATORY | | + + + + + + | BUN/Creatin | 21.1 | | [facility] | | | ine Ratio | | [...] [address] | [place] | [phone] | | [facility] | | [address] | | | - LABORATORY | | [...] [address] | [place] | [phone] | | [facility] | | [address] | | | - LABORATORY | | [...] ST. | [address] | [place], [place] | [phone] | | [facility] | | [address] | | | - LABORATORY | | [...] + + | [facility] | [address] | [place] | [phone] | | [facility] | | [address] | | | - LABORATORY | | [...] + | [facility] | [address] | [place] | [phone] | | [facility] | | [address] | | | - LABORATORY | | [...] [address] | [place] | [phone] | | [facility] | | [address] | | | - LABORATORY | | [...] [address] | [place] | [phone] | | [facility] | | [address] | | | - LABORATORY | | [...] [address] | [place] | [phone] | | [facility] | | [address] | | | - LABORATORY | | | | + + + + + POC Glucose (10/07/2017 7:38 AM PST) + +-------+ + + + | Component | Value | Ref Range | Performed | Pathologist | | | | | At | Signature | + +-------+ + + + | Glucose, | 104 | 70 - 109 mg/dL | [facility] | | | POC | | | [facility] | | | | | | MEDICAL [...] + + + + + | [facility] | [address] | [place] | [phone] | | [facility] | | [address] | | | - LABORATORY | | | | + + + + + Magnesium (10/07/2017 3:51 AM PST) + +-------+ + + + | Component | Value | Ref Range | Performed | Pathologist | | | | | At | Signature | + +-------+ + + + | Magnesium | 1.9 | 1.8 - 2.5 mg/dL | [facility] | | | | [...] [address] | [place] | [phone] | | [facility] | | [address] | | | - LABORATORY | | [...] | 1.29 | 0.60 - 1.30 | [place] | | | | | mg/dL | [facility] | | | | | | MEDICAL | | | | | | CENTER - | | | | | | LABORATORY | | + + + + + + | eGFR if not | 56 (L)Comment: | >=60 | [place] | | | | GLOMERULAR FILTRATION | mL/min/1.73m2 | [facility] | | | [place]ESE | RATE,ESTIMATED | | MEDICAL | | | | mL/min/1.82u1Bfmv than | | CENTER - | | [...] | ine Ratio | | | [facility] | | | | | | MEDICAL [...] + | [facility] | [address] | [place] | [phone] | | [facility] | | [address] | | | - LABORATORY | | | | + + + + + CBC with Differential (10/07/2017 3:51 AM PST) + + + + + + | Component | Value | Ref Range | Performed | Pathologist | | | | | At | Signature | + + + + + + | WBC | 10.9 | 4.0 - 11.0 K/uL | [facility] [...] + | [facility] | [address] | [place] | [phone] | | [facility] | | [address] | | | - LABORATORY | | [...] | | Source | | | [facility] | | | | | [...] + | [facility] | [address] | [place] | [phone] | | [facility] | | [address] | | | - LABORATORY | | [...] | | Dictated and Signed by: Terry Siwft MD Electronically | | | signed: 10/07/2017 [...] [address] | [place] | [phone] | | [facility] | | [address] | | | - LABORATORY | | [...] [address] | [place] | [phone] | | [facility] | | [address] | | | - LABORATORY | | [...] The | | | | | | [employer] [place] [employer] | | | | | [...] + + | Performing | Address | City/State/[facility] | Phone Number | | Organization | | | | + + + + + | [facility] | [address] | [place] | [phone] | | [facility] | | [address] | | | - LABORATORY | | [...] + | [facility] | [address] | [place] | [phone] | | [facility] | | [address] | | | - LABORATORY | | [...] [address] | [place] | [phone] | | [facility] | | [address] | | | - LABORATORY | | [...] [address] | [place] | [phone] | | [facility] | | [address] | | | - LABORATORY | | | | + + + + + XR Chest AP Portable (10/06/2017 6:09 AM [facility]) + + | Specimen | + + [...] x-rays dating to October 03 | | 2000TECHNIQUE: A single portable view [...] 1.9 | 1.8 - 2.5 mg/dL | [facility] | | | | [...] [address] | [place] | [phone] | | [facility] | | [address] | | | - LABORATORY | | [...] 18 | 7 - 18 mg/dL | [facility] | | | | | | [facility] | | | | | | MEDICAL | | | | | | CENTER - | | | | | | LABORATORY | | + + + + + + | Creatinine | 1.30 | 0.60 - 1.30 | [facility] | | | | | mg/dL | [facility] | | | | | | MEDICAL | | | | | | CENTER - | | | | | | LABORATORY | | + + + + + + | eGFR if not | 56 (L)Comment: | >=60 | [facility] | | | | GLOMERULAR FILTRATION | mL/min/1.73m2 | [facility] | | | [place] | RATE,ESTIMATED | | MEDICAL | | | | mL/min/1.05t4Npcc than | | CENTER - | | [...] [address] | [place] | [phone] | | [facility] | | [address] | | | - LABORATORY | | | | + + + + + CBC with Differential (10/06/2017 3:48 AM PST) + + + + + + | Component | Value | Ref Range | Performed | Pathologist | | | | | At | Signature | + + + + + + | WBC | 10.4 | 4.0 - 11.0 K/uL | [facility] | | | | | | [facility] | | | | | | MEDICAL | | | | | | CENTER - | | | | | | LABORATORY | | + + + + + + | RBC | 4.62 | 4.30 - 5.70 | [facility] | | | | | M/uL | [facility] | | | | | | MEDICAL | | | | | | CENTER - | | | | | | LABORATORY | | + + + + + + | Hemoglobin | 13.7 | 13.5 - 18.0 | [facility] | | | | | g/dL | [facility] | | | | | [...] [address] | [place] | [phone] | | [facility] | | [address] | | | - LABORATORY | | [...] + | [facility] | [address] | [place] | [phone] | | [facility] | | [address] | | | - LABORATORY | | [...] | | | | ZOHRA BREWER, FLORY ([id number]) | | | | | | on [...] | | | | FLORY العلي MD ([id number]) | | | | | | on [...] [address] | [place] | [phone] | | [facility] | | [address] | | | - LABORATORY | | | | + + + + + EGD (10/05/2017 10:56 AM PST) + + | Specimen | + + | | + + + + -+ | Narrative | Performed At | + + -+ | | [facility] | | GastroenterologyPatient Name: Ron Heather Date: | PROVATION | | 10/05/2017 10:56 AMMRN: [id number] #: [id number] of : | | | 5Admit Type: InpatientAge: 61Room: [facility] 01Gender: MaleNote | | | Status: FinalizedAttending MD: Terry Weir MDProcedure: | | | Upper GI endoscopyIndications: Suspected upper | | | gastrointestinal bleedingProviders: Terry Weir MD, | | | Gil Tam RN, Elizabeth Patel | | | ALFONSO Rivers, Siddharth Bradley CMA, [place], | | | Impregnator And Drier, Yong Napier MD (Anesthesia | | | [...] the anesthesiologist and | | | the product technician in the procedure room. Mental Status [...] Scope In: 11:00:34 AMScope Out: 11:11:30 AM [place] | | | [facility], [address] [place] [address] | | | [phone] | | | area of the papilla [...] |Scope Out: 11:11:30 AM | | | [facility], [address] [place] [address] | | | [address] | | + + -+ + +---------+ [...] [address] | [place] | [phone] | | [facility] | | [address] | | | - LABORATORY | | [...] [address] | [place] | [phone] | | [facility] | | [address] | | | - LABORATORY | | [...] 17 | 7 - 18 mg/dL | [facility] | | | | | | [facility] | | | | | | MEDICAL | | | | | | CENTER - | | | | | | LABORATORY | | + + + + + + | Creatinine | 1.19 | 0.60 - 1.30 | [facility] | | | | | mg/dL | [facility] | | | | | | MEDICAL | | | | | | CENTER - | | | | | | LABORATORY | | + + + + + + | eGFR if not | >60Comment: GLOMERULAR | >=60 | [facility] | | | | FILTRATION | mL/min/1.73m2 | [facility] | | | [place] | RATE,ESTIMATED | | MEDICAL | | | | mL/min/1.82i5Wvzj than | | CENTER - | | [...] [address] | [place] | [phone] | | [facility] | | [address] | | | - LABORATORY | | | | + + + + + CBC with Differential (10/05/2017 4:27 AM PST) + + + + + + | Component | Value | Ref Range | Performed | Pathologist | | | | | At | Signature | + + + + + + | WBC | 8.3 | 4.0 - 11.0 K/uL | [facility] | | | | | [...] [address] | [place] | [phone] | | [facility] | | [address] | | | - LABORATORY | | | | + + + + + POC Glucose (10/04/2017 9:12 PM PST) + +-------+ + + + | Component | Value | Ref Range | Performed | Pathologist | | | | | At | Signature | + +-------+ + + + | Glucose, | 108 | 70 - 109 mg/dL | [facility] [...] + | [facility] | [address] | [place] | [phone] | | [facility] | | [address] | | | - LABORATORY | | [...] 91 | 70 - 109 mg/dL | [facility] [...] [address] | [place] | [phone] | | [facility] | | [address] | | | - LABORATORY | | [...] | | | | FLORY العلي MD ([id number]) | | | | | | on [...] ST. | [address] | [place] | [phone] | | [facility] | | [address] | | | - LABORATORY | | [...] [address] | [place] | [phone] | | [facility] | | [address] | | | - LABORATORY | | [...] | | | | | results. [employer] [place] | | | | | | College [...] + + | Performing | Address | City/State/[facility] Centercode | Phone Number | | Organization | | | | + + + + + | [facility] | [address] | [place] | [phone] | | [facility] | | [address] | | | - LABORATORY | | [...] | | Corrected, | | | [facility] | | | Arterial | | | MEDICAL | | | | | | CENTER - | | | | | | LABORATORY | | + + + + + + | pCO2 Temp | 35 | mmHg | [facility] | | | Corrected, | | | [facility] | | | Arterial | | | [...] PS+ 10, PEEP +5, 40%, ETCO2 35 HUF325% | [facility] | | | [facility] | | | [facility] | | | - LABORATORY | + + + + + + + + | Performing | Address | City/State/Zipcode | Phone Number | | Organization | | | | + + + + + | [facility] | [address] | [place] | [phone] | | [facility] | | [address] | | | - LABORATORY | | [...] [address] | [place] | [phone] | | [facility] | | [address] | | | - LABORATORY | | [...] | | Eosinophils | | | [facility] | | [...] [address] | [place] | [phone] | | [facility] | | [address] | | | - LABORATORY | | | | + + + + + Magnesium (10/04/2017 3:43 AM PST) + +-------+ + + + | Component | Value | Ref Range | Performed | Pathologist | | | | | At | Signature | + +-------+ + + + | Magnesium | 1.9 | 1.8 - 2.5 mg/dL | [facility] | | | | | | [facility] [...] [address] | [place] | [phone] | | [facility] | | [address] | | | - LABORATORY | | [...] | mL/min/1.73m2 | [facility] | | | BHUTANESE | RATE,ESTIMATED | | MEDICAL | | | | mL/min/1.39k0Ynti than | | CENTER - | | [...] + | [facility] | [address] | [place] | [phone] | | [facility] | | [address] | | | - LABORATORY | | [...] | | | | | results. [place] | | | | | | College [...] [address] | [place] | [phone] | | [facility] | | [address] | | | - LABORATORY | | [...] [address] | [place] | [phone] | | [facility] | | [address] | | | - LABORATORY | | [...] (H) | 7 - 18 mg/dL | [facility] | | | | | | [facility] | | | | | | MEDICAL | | | | | | CENTER - | | | | | | LABORATORY | | + + + + + + | Creatinine | 1.42 (H) | 0.60 - 1.30 | [facility] | | | | | mg/dL | [facility] | | | | | | MEDICAL | | | | | | CENTER - | | | | | | LABORATORY | | + + + + + + | eGFR if not | 51 (L)Comment: | >=60 | [facility] | | | | GLOMERULAR FILTRATION | mL/min/1.73m2 | [facility] | | | [place] | RATE,ESTIMATED | | MEDICAL | | | | mL/min/1.45i0Zldt than | | CENTER - | | [...] [address] | [place] | [phone] | | [facility] | | [address] | | | - LABORATORY | | | | + + + + + Procalcitonin (10/03/2017 3:45 PM PST) + + + + + + | Component | Value | Ref Range | Performed | Pathologist | | | | | At | Signature | + + + + + + | Procalciton | 3.53 ()Comment: | <=0.50 ng/mL | [facility] | | | in | Critical Result called | | [facility] | | | | to and read [...] [address] | [place] | [phone] | | [facility] | | [address] | | | - LABORATORY | | [...] The | | | | | | [employer] [place] [employer] | | | | | [...] [address] | [place] | [phone] | | [facility] | | [address] | | | - LABORATORY | | [...] TIMEOUT Before start of procedure done: Yes CORE MOUNTER: Delmer | | | Mila Gomez M.D., [...] Right femoral artery 6 | | | Chinese CLOSURE DEVICE:. Sheath left in place as [...] | | | technique and a 6 Chinese sheath was inserted. Selective coronary | | | arteriography was performed using 6 Chinese Kymberly right 4 and left 4 | [...] | | will transfer the patient to [employer] [place] for consideration of urgent | | | coronary revascularization. Delmer Gomez M.D., | | | F.A.C.C.[facility] | | | [place] | | | | | |CIRCUMFLEX ARTERY: [...] will transfer | | |the patient to [employer] for consideration of urgent coronary | | |revascularization. | | | | | |Delmer Gomez M.D., F.A.C.C. | | |Awning Craftsman | | |[facility] | | |[place] | | | [...] ST. | [address] | [place] | [phone] | | [facility] | | [address] | | | - LABORATORY | | [...] MD | | | | | | ([id number]) on 10/04/2017 | | | | | [...] | | | POC | | | [facility] | | | | | [...] [address] | [place] | [phone] | | [facility] | | [address] | | | - LABORATORY | | [...] [address] | [place] | [phone] | | [facility] | | [address] | | | - LABORATORY | | [...] + | No platelet clumps seen | [facility] | | | [facility] | | | [facility] | | | - LABORATORY | + + + + + + + + | Performing | Address | City/State/Zipcode | Phone Number | | Organization | | | | + + + + + | [facility] | [address] | [place] | [phone] | | [facility] | | [address] | | | - LABORATORY | | [...] [address] | [place] | [phone] | | [facility] | | [address] | | | - LABORATORY | | | | + + + + + Troponin I (10/03/2017 11:29 AM PST) + + + + + + | Component | Value | Ref Range | Performed | Pathologist | | | | | At | Signature | + + + + + + | Troponin I | 12.50 ()Comment: | <0.06 ng/mL | [facility] | | | | Reference | | [...] | | | | | | [employer] [place] [employer] | | | | | [...] [address] | [place] | [phone] | | [facility] | | [address] | | | - LABORATORY | | | | + + + + + B Type Natriuretic Peptide (10/03/2017 11:29 AM PST) + +---------+ + + + | Component | Value | Ref Range | Performed | Pathologist | | | | | At | Signature | + +---------+ + + + | BNP | 495 (H) | <100 pg/mL | [facility] | | | | | [...] [address] | [place] | [phone] | | [facility] | | [address] | | | - LABORATORY | | [...] | | Direct | | mg/dl | [facility] | | | | | [...] [address] | [place] | [phone] | | [facility] | | [address] | | | - LABORATORY | | [...] | Time | | seconds | [facility] | | | | [...] ST. | [address] | [place] | [phone] | | [facility] | | [address] | | | - LABORATORY | | [...] 1.55 (H) | 0.60 - 1.30 | [facility] | | | | | mg/dL | [facility] | | | | | | MEDICAL | | | | | | CENTER - | | | | | | LABORATORY | | + + + + + + | eGFR if not | 46 (L)Comment: | >=60 | [place] | | | | GLOMERULAR FILTRATION | mL/min/1.73m2 | [facility] | | | [place] | RATE,ESTIMATED | | MEDICAL | | | | mL/min/1.34t9Frxs than | | CENTER - | | [...] + | [facility] | [address] | [place] | [phone] | | [facility] | | [address] | | | - LABORATORY | | [...] (H) | 4.0 - 11.0 K/uL | [facility] | | | | | | [facility] [...] | | | Eosinophils | | | [facility] | | [...] + | [facility] [facility] | 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 | | | Age 61 year(s) Interpreting DELMER | | | Mila GOMEZ MD, | | | Director [employer] [facility] Gender Male | | | Nurse Stress | | | Impregnator And Drier Procedure Type of Study TTE procedure: ECHO [...] Volume: 42.65 ml | | | EF Zlhaeyvuw54% Left | | | Ventricle Diastolic Dimension: [...] | Electronically signed by DELMER GOMEZ MD, [facility](Interpreting | | | physician) on 10/03/2017 12:59 [...] Volume: 42.65 ml | | | EF Pbirbowls73% | | | | | | Left [...] Rad Results In - 10/03/2017 1:00 PM [facility] Transthoracic Echocardiography Report | | (TTE) Demographics Patient Name MIKE VELASQUEZ Room Number 458 | | J Patient [id number] Date of Study 10/03/2017 Number Visit Number | | [id number] Referring Physician BENEDICT RAYGOZA Number | | Date of 1955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 | [address] | [place] | [phone] | | [facility] | | [address] | | | - LABORATORY | | [...] [address] | [place] | [phone] | | [facility] | | [address] | | | - LABORATORY | | [...] | | | Thanh | | [facility] | | | [...] [address] | [place] | [phone] | | [facility] | | [address] | | | - LABORATORY | | [...] | | | PCR | | | [facility] | | | | | | MEDICAL | | | | | | CENTER - | | | | | | LABORATORY | | + + + + + + | Influenza B | Positive (A) | Negative | [facility] | | | PCR | | | [facility] | | [...] [address] | [place] | [phone] | | [facility] | | [address] | | | - LABORATORY | | | | + + + + + Shaji Novak (10/03/2017 10:39 AM GIRISH) + + + + + + | [...] [address] | [place] | [phone] | | [facility] | | [address] | | | - LABORATORY | | [...] ST. | [address] | [place] | [phone] | | [facility] | | [address] | | | - LABORATORY | | [...] | | | 2 | | | [facility] | | [...] + | [facility] | [address] | [place], [place] | [phone] | | [facility] | | [address] | | | - LABORATORY | | [...] Difficile | Negative for toxigenic | | [facility] | | | GDH Antigen | [...] [address] | [place] | [phone] | | [facility] | | [address] | | | - LABORATORY | | [...] + | Performed at: 01 - [facility] [address] | [facility] | | [id number] Shaping Machine Operator: Yesenia Gee MD, Phone: [phone] | [facility] | + + + + + + + + | Performing | Address | City/State/Zipcode | Phone Number | | Organization | | | | + + + + + | [facility] | [address] | [place], [place] | [phone] | | [facility] | [address] | [address] | | + + + + + [...] [address] | [place] | [phone] | | [facility] | | [address] | | | - LABORATORY | | [...] - 1.030 | [facility] | | | [place], | | | [facility] | | [...] [address] | [place] | [phone] | | [facility] | | [address] | | | - LABORATORY | | [...] + + | Acute upper GI bleed Hemorrhage of gastrointestinal tract, unspecified | + + | Coronary artery disease involving [place] coronary artery of [place] heart without | | angina pectoris | + + | Acute respiratory acidosis Acidosis | + + | CAD (coronary artery disease) Coronary atherosclerosis of unspecified type of vessel, | | [place] or graft | + + | Pulmonary edema Pulmonary [...] | acetaminophen (TYLENOL) tablet | Given | 10/07/19 | 650 mg | | | | 650 mg 650 mg, Per OG Tube, | | 18 12:36 | | | | | EVERY 6 HOURS PRN, Pain, Starting | | AM PST | | | | | 10/03/17 at 2250 | | | | | | + +--------+ +--------+------+------+ +-------+ +--------+---+---+ | Given | 10/05/19 | 650 mg | | | | | 18 8:24 | | | | | | PM PST | | | | +-------+ +--------+---+---+ | Given | 10/04/19 | 650 mg | | | | | 18 4:09 | | | | | | PM PST | | | | +-------+ +--------+---+---+ + +---+ | | | + +---+ | adenosine (ADENOCARD) 3 mg/mL | | | injection Starting 10/05/17 | | | at 1556, For 1 dose, RAYMUNDO, | | | GIOVANI: isiah telles, | | + +---+ | | | + +---+ + +-------+ +-------+---+---+ | adenosine (ADENOCARD) injection | Given | 10/05/19 | 12 mg | | | | 12 mg 12 mg, Intravenous, ONCE, | | 18 4:06 | | | | | 10/05/17 at 1615, For 1 dose | | PM PST | | | | + +-------+ +-------+---+---+ +---+---+ | | | +---+---+ + +-------+ +------+---+---+ | adenosine (ADENOCARD) injection | Given | 10/05/19 | 6 mg | | | | 6 mg 6 mg, Intravenous, ONCE, | | 18 3:56 | | | | | 10/05/17 at 1615, For 1 dose | | PM PST | | | | + +-------+ +------+---+---+ +---+---+ | | | +---+---+ + +-------+ +------+---+---+ | albuterol 2.5 mg/3 mL nebulizer | Given | 10/05/19 | 5 mg | | | | solution Starting 10/05/17 | | 18 3:13 | | | | | at 1513, For 1 dose, MADDI, | | PM PST | | | | | RENATA: isiah telles, | | | | | | + +-------+ +------+---+---+ +---+---+ | | | +---+---+ + +-------+ +-------+---+---+ | albuterol-ipratropium (DUONEB) | Given | 10/10/19 [...] +-------+ +-------+---+---+ +-------+ +-------+---+---+ | Given | 10/10/19 | [...] +-------+---+---+ | albuterol-ipratropium (DUONEB) | Given | 10/05/19 | 3 mLs | | | | 2.5-0.5 mg/3 mL nebulizer | | 18 3:14 | | | | | solution Starting 10/05/17 at | | PM PST | | | | | 1501, For 1 dose, RENATA LINDA: | | | | | | | cabcamit override, | | | | | | + +-------+ +-------+---+---+ +---+---+ | | | +---+---+ + + + + +-------+---+ | amiodarone (CORDARONE) 1.8 | Rate/Dos | 10/05/19 | 1 mg/min | 33.3 | | | mg/mL in dextrose 5% 500 mL | e Verify | 18 7:22 | | mL/hr | | | infusion 1 mg/min (33.3333 | | PM PST | | | | | mL/hr, rounded to 33.3 mL/hr), at | | | | | | | 33.3 mL/hr, Intravenous, | | | | | | | TITRATED, Starting 10/05/17 at | | | | | | | 1630, For 6 hours, Use 0.22 | | | | | | | micron filter for | | | | | | | administration., | | | | | | + + + + +-------+---+ +---------+ + +-------+---+ | New Bag | 10/05/19 | 1 mg/min | 33.3 | | | | 18 4:40 | | mL/hr | | | | PM PST | | | | +---------+ + +-------+---+ +---+---+ | | | +---+---+ + +---------+ +--------+-------+---+ | amiodarone (CORDARONE) 1.8 | New Bag | 10/05/19 | 0.5 | 16.7 | | | mg/mL in dextrose 5% 500 mL | | 18 10:00 | mg/min | mL/hr | | | infusion 0.5 mg/min (16.6667 | | PM PST | | | | | mL/hr, rounded to 16.7 mL/hr), at | | | | | | | 16.7 mL/hr, Intravenous, | | | | | | | TITRATED, Starting 10/05/17 at | | | | | | | 2240, For 18 hours, Use 0.22 | | | | | | | micron filter for | | | | | | | administration., | | | | | | + [...] | amiodarone (PACERONE) tablet | Given | 10/08/19 | 400 mg | | | | 400 mg 400 mg, Oral, 2 TIMES | | 18 9:13 | | | | | DAILY, First dose (after last | | PM PST | | | | | modification) on Thu10/07/17 at | | | | | | | 0900 | | | | | | + +-------+ +--------+---+---+ +-------+ +--------+---+---+ | Given | 10/08/19 | 400 mg | | | | | 18 8:56 | | | | | | AM PST | | | | +-------+ +--------+---+---+ | Given | 10/07/19 | 400 mg | | | | | 18 9:08 | | | | | | PM PST | | | | +-------+ +--------+---+---+ +---+---+ | | | +---+---+ + +-------+ +--------+---+---+ | amiodarone (PACERONE) tablet | Given | 10/09/19 | 400 mg | | | | 400 mg 400 mg, Oral, 2 TIMES | | 18 9:08 | | | | | DAILY, First dose (after last | | AM PST | | | | | modification) on Thu10/09/17 at | | | | | | | 0900, For 4 days | | | | | | + +-------+ +--------+---+---+ +---+---+ | | | +---+---+ + +-------+ +--------+-------+---+ | amiodarone in dextrose | Given | 10/05/19 | 150 mg | 600 | | | (NEXTERONE) 150 mg/100 mL bolus | | 18 4:18 | | mL/hr | | | 150 mg 150 mg, Intravenous, | | PM PST | | | | | Administer over 10 Minutes, ONCE, | | | | | | | 10/05/17 at 1630, For 1 dose, | | | | | | | For Rhythm Control, | | | | | | + +-------+ +--------+-------+---+ + +---+ | | | + +---+ | amiodarone in dextrose | | | (NEXTERONE) 150 mg/100 mL bolus | | | Starting 10/05/17 at 1612, For | | | 1 dose, GIOVANI FONSECA: isiah | | | override, | | + +---+ | | | [...] (ZITHROMAX) 500 mg | New Bag | 10/05/19 | 500 mg | 255 | | | in sodium chloride 0.9% 250 mL | | 18 8:29 | | mL/hr | | | IVPB 500 mg, Intravenous, | | AM PST | | | | | Administer over 1 Hours, DAILY, | | | | | | | First dose on 10/03/17 at | | | | | | | 1100, Keep in refrigerator., | | | | | | | Indications: Community Acquired | | | | | | | Pneumonia | | | | | | + +---------+ +--------+-------+---+ +---------+ +--------+-------+---+ | New Bag | 10/04/19 | 500 mg | 255 | | | | 18 8:43 | | mL/hr | | | | AM PST | | | | +---------+ +--------+-------+---+ | New Bag | 10/03/19 | 500 mg | 255 | | | | 18 12:14 | | mL/hr | | | | PM PST | | | | +---------+ +--------+-------+---+ [...] | | | First dose on [facility] 10/08/17 at 0915 | | | [...] enoxaparin (LOVENOX) 40 mg/0.4 | Given | 10/04/19 | 40 mg | | Abdomen- | | mL injection 40 mg 40 mg, | | 18 8:08 | | | RLQ | | Subcutaneous, EVERY 24 HOURS | | AM PST | | | | | (Daily), First dose on Sun | | | | | | | 10/04/17 at 0900 | | | | | | + +-------+ +-------+---+ + +---+---+ | | | +---+---+ + +-------+ +--------+---+---+ | fentaNYL (PF) injection 25-50 | Given | 10/04/19 | 50 mcg | | | | mcg 25-50 mcg, Intravenous, | | 18 2:17 | | | | | EVERY 1 HOUR PRN, Pain, or | | PM PST | | | | | distress or agitation, Starting | | | | | | | 10/03/17 at 2059 | | | | | | + +-------+ +--------+---+---+ +-------+ +--------+---+---+ | Given | 10/04/19 | 50 mcg | | | | | 18 11:16 | | | | | | AM PST | | | | +-------+ +--------+---+---+ | Given | 10/04/19 | 50 mcg | | | | | 18 9:30 | | | | | | AM PST | | | | +-------+ +--------+---+---+ + +---+ | | | + +---+ | furosemide (LASIX) 10 mg/mL | | | injection Starting 10/05/17 | | | at 1512, For 1 dose, RAYMUNDO, | | | GIOVANI: isiah telles, | | + +---+ | | | + +---+ + +-------+ +-------+---+---+ | furosemide (LASIX) injection 40 | Given | 10/05/19 | 40 mg | | | | mg 40 mg, Intravenous, ONCE, | | 18 3:13 | | | | | 10/05/17 at 1530, For 1 dose | | PM PST | | | | + +-------+ +-------+---+---+ +---+---+ | | | +---+---+ + +-------+ +-------+---+---+ | furosemide (LASIX) injection 40 | Given | 10/05/19 | 40 mg | | | | mg 40 mg, Intravenous, ONCE, | | 18 10:02 | | | | | 10/05/17 at 2200, For 1 dose | | PM PST | | | | + +-------+ +-------+---+---+ +---+---+ | | | +---+---+ + +-------+ +-------+---+---+ | furosemide (LASIX) injection 40 | Given | 10/07/19 | 40 mg | | | | mg 40 mg, Intravenous, ONCE, | | 18 3:52 | | | | | 10/07/17 at 0400, For 1 dose | | AM PST | | | | + +-------+ +-------+---+---+ +---+---+ | | | +---+---+ + +-------+ +-------+---+---+ | furosemide (LASIX) tablet 40 mg | Given | 10/08/19 | 40 mg | | | | 40 mg, Oral, DAILY, First dose | | 18 9:37 | | | | | on Radha 10/08/17 at 0915 | | AM PST | | | [...] | | | | | dose on 10/07/17 at 2100 | | | | | [...] scheduled: AC, | | | NPO, Daytime [id number] Use NIGHT | | | DOSE for doses scheduled: | | | HS, 3AM, Nighttime 5442-1630, | | + +---+ | | | + +---+ + + + +---+-------+---+ | lactated ringers (LR) infusion | Rate/Dos | 10/05/19 | | 100 | | | at 60 mL/hr, Intravenous, | e Change | 18 10:50 | | mL/hr | | | CONTINUOUS, Starting 10/03/17 | | AM PST | | | | | at 1945 | | | | | | + + + +---+-------+---+ + + +---+ +---+ | Rate/Dose [...] | metoprolol tartrate (LOPRESSOR) | Given | 10/08/19 | 25 mg | | | | tablet 25 mg 25 mg, Oral, EVERY | | 18 6:25 | | | | | 6 HOURS (4 times per day), First | | AM PST | | | | | dose (after last modification) | | | | | | | on Thu10/06/17 at 1200, Hold if | | | | | | | SBP<95 or HR<55, | | | | | | + +-------+ +-------+---+---+ +-------+ +-------+---+---+ | Given | 10/07/19 | 25 mg | | | | | 18 11:18 | | | | | | PM PST | | | | +-------+ +-------+---+---+ | Given | 10/07/19 | 25 mg | | | | | 18 11:42 | | | | | | AM PST | | | | +-------+ +-------+---+---+ +---+---+ | | | +---+---+ + +-------+ +-------+---+---+ | metoprolol tartrate (LOPRESSOR) | Given | 10/06/19 | 50 mg | | | | tablet 50 mg 50 mg, Oral, 3 | | 18 1:56 | | | | | TIMES DAILY, First dose on Mon | | AM PST | | | | | 10/05/17 at 1700 | | | | | | + +-------+ +-------+---+---+ +-------+ +-------+---+---+ | Given | 10/05/19 | 50 mg | | | | | 18 4:52 | | | | | | PM [...] nitroglycerin in dextrose 100 | Rate/Dos | 10/05/19 | 5 | 3 mL/hr | | | mcg/mL infusion 5-250 mcg/min | e Change | 18 3:25 | mcg/min | | | | (3-150 mL/hr), at 3-150 mL/hr, | | PM PST | | | | | Intravenous, TITRATED, Starting | | | | | | | 10/05/17 at 1530, Initial | | | | | | | dose: 5 mcg/min, Goal: SBP less | | | | | | | than 160 | | | | | | + + + +---------+---------+---+ + + +---------+---------+---+ | Rate/Dose Change | 10/05/19 | 10 | 6 mL/hr | | | | 18 3:16 | mcg/min | | | | | PM PST | | | | + + +---------+---------+---+ | Rate/Dose Change | 10/05/19 | 5 | 3 mL/hr | | | | 18 3:15 | mcg/min | | | | | PM PST | | | | + + +---------+---------+---+ +---+---+ | | | +---+---+ + + + +---------+-------+---+ | norepinephrine in NS (LEVOPHED) | Rate/Dos | 10/03/19 | 1 | 3.8 | | | 16 mcg/mL infusion 1-30 mcg/min | e Change | 18 8:42 | mcg/min | mL/hr | | | (3.75-112.5 mL/hr, rounded to | | PM PST | | | | | 3.8-112.5 mL/hr), at 3.8-112.5 | | | | | | | mL/hr, Intravenous, TITRATED, | | | | | | | Starting 10/03/17 at 1015, | | | | | | | Initial dose: 3 mcg/min, Goal: | | | | | | | SBP greater than 90 | | | | | | + + + +---------+-------+---+ + + +---------+-------+---+ | Rate/Dose Change | 10/03/19 | 3 | 11.3 | | | | 18 6:00 | mcg/min | mL/hr | | | | PM PST | | | | + + +---------+-------+---+ | Rate/Dose Change | 10/03/19 | 5 | 18.8 | | | | 18 4:05 | mcg/min | mL/hr | | | | PM [...] oseltamivir (TAMIFLU) 6 mg/mL | Given | 10/04/19 | 30 mg | | | | suspension 30 mg 30 mg, Per OG | | 18 8:07 | | | | | Tube, 2 TIMES DAILY, First dose | | AM PST | | | | | on 10/03/17 at 1200, Shake | | | | | | | well. Keep in refrigerator., | | | | | | | Indications: Influenza | | | | | | + +-------+ +-------+---+---+ +-------+ +-------+---+---+ | Given | 10/03/19 | 30 mg | | | | | 18 10:05 | | | | | | PM PST | | | | +-------+ +-------+---+---+ | Given | 10/03/19 | 30 mg | | | | | 18 12:03 | | | | | | PM PST | | | | +-------+ +-------+---+---+ +---+---+ | | | +---+---+ + +-------+ +-------+---+---+ | oseltamivir (TAMIFLU) capsule | Given | 10/08/19 | 75 mg | | | | 75 mg 75 mg, Oral, 2 TIMES | | 18 8:55 | | | | | DAILY, First dose on 10/04/17 | | AM PST | | | | | at 2100, Capsules may be opened & | | | | | | | contents mixed with sweetened | | | | | | | liquid such as chocolate syrup., | | | | | | | Indications: Influenza | | | | | | + +-------+ +-------+---+---+ +-------+ +-------+---+---+ | Given | 10/07/19 | 75 mg | | | | | 18 9:08 | | | | | | PM PST | | | | +-------+ +-------+---+---+ | Given | 10/07/19 | 75 mg | | | | | 18 8:03 | | | | | | [...] +-------+---+---+ | pantoprazole (PROTONIX) | Given | 10/04/19 | 40 mg | | | | injection 40 mg 40 mg, | | 18 8:08 | | | | | Intravenous, DAILY, First dose on | | AM PST | | | | | 10/03/17 at 1015, Slow IV | | | | | | | push (dilute with 10ml NS)., | | | | | | + +-------+ +-------+---+---+ +-------+ +-------+---+---+ | Given | 10/03/19 | 40 mg | | | | | 18 12:05 | | | | | | PM PST | | | | +-------+ +-------+---+---+ +---+---+ | | | +---+---+ + +-------+ +-------+---+---+ | pantoprazole (PROTONIX) | Given | 10/07/19 | 40 mg | | | | injection 40 mg 40 mg, | | 18 8:03 | | | | | Intravenous, 2 TIMES DAILY, First | | AM PST | | | | | dose (after last modification) | | | | | | | on Thu10/05/17 at 0900, Slow IV | | | | | | | push (dilute with 10ml NS)., | | | | | | + +-------+ +-------+---+---+ +-------+ +-------+---+---+ | Given | 10/06/19 | 40 mg | | | | | 18 8:35 | | | | | | PM PST | | | | +-------+ +-------+---+---+ | Given | 10/06/19 | 40 mg | | | | | 18 8:31 | | | | | | AM PST | | | | +-------+ +-------+---+---+ +---+---+ | | | +---+---+ + +-------+ +--------+---+---+ | potassium chloride (K-DUR) ER | Given | 10/09/19 | 20 mEq | | | | tablet 20 mEq 20 mEq, Oral, | | 18 7:41 | | | | | ONCE, 10/09/17 at 0730, For 1 | | AM PST | | | | | dose | | | | | | + +-------+ +--------+---+---+ +---+---+ | | | +---+---+ + +-------+ +--------+---+---+ | potassium chloride (K-DUR) ER | Given | 10/06/19 | 40 mEq | | | | tablet 40 mEq 40 mEq, Oral, | | 18 11:22 | | | | | ONCE, 10/06/17 at 1100, For 1 | | AM PST | | | | | dose | | | | | | + +-------+ +--------+---+---+ +---+---+ | | | +---+---+ + +-------+ +--------+---+---+ | potassium chloride (KLOR-CON) | Given | 10/08/19 | 10 mEq | | | | ER tablet 10 mEq 10 mEq, Oral, | | 18 9:13 | | | | | TIMES DAILY, First dose on Radha | | PM PST | | | | | 10/08/17 at 0915, May take with | | | | | | | food to decrease GI upset., | | | | | | + +-------+ +--------+---+---+ +-------+ +--------+---+---+ | Given | 10/08/19 | 10 mEq | | | | | 18 12:39 | | | | | | PM PST | | | | +-------+ +--------+---+---+ +---+---+ | | | +---+---+ + +---------+ +--------+-------+---+ | potassium chloride 40 mEq in | New Bag | 10/06/19 | 40 mEq | 130 | | | sodium chloride 0.45% 500 mL IVPB | | 18 9:58 | | mL/hr | | | 40 mEq, Intravenous, Administer | | AM PST | | | | | over 4 Hours, ONCE, Jadyn 10/06/17 | | | | | | | at 0900, For 1 dose | | | | | | + +---------+ +--------+-------+---+ +---+---+ | | | +---+---+ + + + + +-------+---+ | propofol infusion (DIPRIVAN) 10 | Rate/Dos | 10/05/19 | 30 | 17.5 | | | mg/mL infusion 10-70 mcg/kg/min | e Verify | 18 11:45 | mcg/kg/m | mL/hr | | | | | AM PST [...] | | | | | | | spiked., Initial dose: 10 | | | | | | | mcg/kg/min, Increase rate by: | | | | | | | Titrate up 5-10 mcg/kg/min Q 5 | | | | | | | minutes to goal, Decrease rate | | | | | | | by: Taper down 5-10 mcg/kg/min Q | | | | | | | 5 minutes as tolerated, Goal: | | | | | | | Other, Other goal: RASS goal in | | | | | | | pain/sedation/delirium management | | | | | | | order | | | | | | + + + + +-------+---+ + + + +-------+---+ | Rate/Dose Change | 10/05/19 | 30 | 17.5 | | | | 18 11:44 | mcg/kg/m | mL/hr | | | | AM PST | in | | | + + + +-------+---+ | New Bag | 10/05/19 | 50 | 29.1 | | | | 18 9:30 | mcg/kg/m | mL/hr | | | | AM PST | in | | | + + + +-------+---+ +---+---+ | | | +---+---+ + + + +---------+ +---+ | sodium chloride 0.9% (NS) bolus | Bolus | 10/03/19 | 582 mLs | 97 mL/hr | | | 582 mL 582 mL (6 mL/kg | from Bag | 18 4:53 | | | | | 97 kg), Intravenous, Administer | | PM PST | | | | | over 6 Hours, ONCE, 10/03/17 | | | | | | | at 1630, For 1 dose, 1 ml/kg/hr x | | | | | | | 6 hours, Post-op/Phase II | | | | | | + + + +---------+ +---+ +---+---+ | | | +---+---+ + +---------+ +---+-------+---+ | sodium chloride 0.9% (NS) | New Bag | 10/03/19 | | 100 | | | infusion at 100 mL/hr, | | 18 5:28 | | mL/hr | | | Intravenous, CONTINUOUS, Starting | | PM PST | | | | | 10/03/17 at 1615 | | | | | | + +---------+ +---+-------+---+ +---+---+ | | | +---+---+ documented in [...]
--- OUTSIDE RECORDS SUMMARY | ~2020-03-04 | XMS | Encounter Summary ---
Demographics + + + | Address | [address] | | | [place] [address] | + + + | Home Phone [...] [place] | | | | | [address] | | + + + + + Care Team Providers + +------+ + | Care Group Work Program Director Name | Role | Phone | [...] + + | 06/23/ | Office | [facility] | Jenny, | Coronary artery | | 2017 | Visit | CARDIOLOGY [address] | ADARSH [address] | disease involving | | | | [place], | [place], | [place] coronary | | | | [place] [address] | [place] [address] | artery of [place] | | | | [phone] | [phone] | heart without angina | | | | | | pectoris (Primary | | | | | | Dx); Ischemic | | | | | | cardiomyopathy; | | | | | | Acute anterior wall | | | | | | [place] ([facility]) | +--------+---------+ + + + Social History [...] He tries to stay active. 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 He has not had any chest pain or discomfort at rest or with exertion. He has not noticed shortness of breath. He has not had any lightheadedness or dizziness. He has not noticed palpitations. He has not had leg swelling. [facility] without any shortness of breath. His blood pressure has been between 100-120's/60-69.. MEDICAL, SURGICAL, AND PERSONAL HISTORY Past Medical, Surgical, Family, and Social History are reviewed in EPIC. CURRENT PROBLEMS Patient Active Problem List Diagnosis Acute anterior wall [place] CAD (coronary artery disease) Ischemic cardiomyopathy CURRENT [...] now present Confirmed by LAUREN CHESTER MD ([id number]) on 05/05/2017 6:03:03 AM LAB RESULTS reviewed during visit today primarily from [facility]: LIPID No results found for: CHOL, [...] PLTEX 194 03/15/2017 I reviewed records from [facility] for office visit on 05/26/2017 w [...] shock requiring IABP, pressor (dopamine, nore pinephrine). [facility] and [facility] were on divert. Patient wasn't transferred to [facility]. B. Echocardiogram 03/17/2017 shows LV ejection fraction is severely decreased, vi sually estimated left ventricular ejection fraction is 20 - 25%, left ventricular systolic t hickening is segmentally abnormal, mildly reduced RV systolic function. Normal RV size, no s ignificant valvular abnormalities seen, compared to the most recent exam dated, 03/15/2017, there is no significant changes C. At [facility], patient had another STEMI [...] to follow up closely with a local adjunct physics instructor in [place]. He wias dis chargeed with a LifeVest [...] 5. Thrombocytosis A. Problem was resolved at [facility]. PLAN: 1. Make sure you are [...] this chart may have been created with [employer] voice recognition software. Occasi onal wrong-word or [...] | | | | | | [facility] | | | | | | [address] | | | | | | [id number] | | | | | | | | +--------+ + + + + | 04/16/ | Office | Cardiology | Alin Anderson | | | 2019 | Visit | | MD Cheryl Arreguin | | | | | | [address] | | | | | | [place] [address] | | | | | | [phone] | | | | | | | [...] [place] | | | | | | [address] | | | | | | | | +--------+ + + + + documented as of this encounter Visit Diagnoses + + | Diagnosis | + + | Coronary artery disease involving [place] coronary artery of [place] heart without | | angina pectoris - Primary | + + | Ischemic cardiomyopathy Other specified forms of chronic ischemic heart disease | + + | Acute anterior wall [place] (HCC) Acute myocardial infarction of other anterior wall, | | episode of care unspecified | + + documented in this encounter
--- OUTSIDE RECORDS SUMMARY | ~2020-03-04 | XMS | Encounter Summary ---
Demographics + + + | Address | [address] | | | [place] [address] | + + + | Home Phone [...] [place] | | | | | [address] | | + + + + + Care Team Providers + +------+ + | Care Panel Fitter Name | Role | Phone | + [...] | | | heart | [place], | [place] | | | | | failure | [place] [address] | [place] | | | | | (HCC) | Phone: | [address] | | | | | I50.22 | [phone] | Phone: | | | | | Procedures | Fax: | [phone] | | | | | Cardiac | [phone] | Fax: | | | | | Rehab | | [phone] | +--------+--------+ + + + + Encounter [...] | | | [address] | [address] | | | | | [place] [address] | | | | | | [phone] | | | +--------+---------+ + + + [...] Gael Ortega - 06/21/2019 12:00 PM PDT MERGED WITH [facility] [address] [place] [address] Cardiac Rehab Date: 06/21/2019 Patient Information Patient Name: Bob Will Date of : 1955 Age: 63 y.o. Encounter Diagnoses Code Name Primary? I50.22 Chronic systolic CHF (congestive heart failure) ([facility]) Number of Visits Approved: 34 [...] [place] | | | | | | [id number] | | | | | | | | +--------+ + + + + | 04/16/ | Office | Cardiology | Alin Anderson | | | 2019 | Visit | | MD Cheryl Arreguin | | | | | | [address] | | | | | | [place] [address] | | | | | | [phone] | | | | | | | [...] [place] | | | | | | [address] | | | | | | | | +--------+ + + + + documented as of this encounter Visit Diagnoses + + | Diagnosis | + + | Chronic systolic CHF (congestive heart failure) (HCC) | + + documented in this encounter"
--- OUTSIDE RECORDS SUMMARY | ~2020-03-04 | XMS | Encounter Summary ---
Demographics + + + | Address | [address] | | | [place] [address] | + + + | Home Phone [...] + + | Author | [facility] | + + + | Organization | [facility] | + + + | Address | Unknown | + + + | Phone | Unavailable | + + + Support + + + + + | Name | Relationship | Address | Phone | + + + + + | [place] Will | ECON | [address] | | | | | [place] [address] | | + + + + + Care Team Providers + +------+ + | Care Contract Designer Name | Role | Phone | + +------+ + | Chato Matson MD | PCP | | + +------+ + Encounter Details +--------+ + + + + | Date | Type | Department | Care Team | Description | +--------+ + + + + | 10/17/ | Pharmacy | Outpatient Retail | | | | 2017 | Visit | [facility] | | | | | | [address] | | | | | | [address] [place], [place] | | | | | | [address] | | | | | | [phone] | | | +--------+ + + + [...]
--- OUTSIDE RECORDS SUMMARY | ~2020-03-04 | XMS | Clinical Summary ---
Demographics + + + | Address | [address] | | | [place] [address] | + + + | Home Phone [...] [place] | | | | | [address] | | + + + + + Care Team Providers + +------+ + | Care Shaft Headman Name | Role | Phone | + [...] | | Activ | | (VITAMIN D-3) [id number] | mouth Once a week. | | [...] | 11/12/2017 | + + + | DIGITAL PROOFING AND PLATEMAKER-D (ZANED) Medtronic 10/16/17 EULOGIO Darby | 10/19/2017 | + + + + + | Overview: Formatting of this note might be different from the | | original. MODEL NAME MODEL# SERIAL# DATE IMPLANTED GENERATOR | | Medtronic [id number] 10/16/17 RV LEAD Medtronic [id number] | | [id number] 10/16/17 A LEAD Medtronic [id number] 10/16/17 | | Coronary Sinus LEAD Medtronic [id number] 10/16/17 | | Indication: ischemic cardiomyopathy with reduced EF 30-35% Last | | Assessment & Plan: Medtronic AICD Placed in 10/2017 at [facility]. | | A:-Patient ventricular paced 100% this morning. No arrhythmias on | | telemetry.P:-No acute therapy. Continue current therapy. | | | | Last Assessment & Plan: Medtronic AICD Placed in 10/2017 at [facility]. | | | |A: | |-Patient ventricular [...] + + + | Overview: S/P Medtronic DIGITAL PROOFING AND PLATEMAKER-D 10-16-17 Dr Darby, [facility] Scan | | 10/13/17 shows No [...] + + | Coronary artery disease involving [place] coronary artery of | 04/06/2017 | | [place] heart without angina pectoris | | + [...] + + + | Acute anterior wall [place] | 04/03/2017 | + + + + [...] | 12/08/ | Refill | Cardiology | [place], | Medication Refill | | 2020 | [...] [place] | | | | | | [address] | | | | | | | | +--------+ + + + + | 04/16/ | Office | Cardiology | Alin Anderson | | | 2019 | Visit | | MD Cheryl Arreguin | | | | | | [address] | | | | | | [place] [address] | | | | | | [phone] | | | | | | | [...] [place] | | | | | | [address] | | | | | | | [...] Generi | Left: | TERUMO LORIN | [id number] | 12/05/ | [id number] | | [id number]: Qty: 1 | c | Groin | - TERU | [id number] | 2018 | / | | on 05/19/2018 by [facility], | | | | 20 | | /[id number] | | Khurram Isabel MD at [facility] | | | | | | 371 | | [facility] | | | | | | | + +--------+--------+ +--------+--------+--------+ | Product Manager Medical Device-D MedtronicImplanted: | Implan | | MEDTRONIC - [...] N/A: | ISAACS | | 12/29/ | [id number] | | Eluting Coronary Stent System | | [place] | DIAGNOSTICS | | 2019 | 0-18 / | | Implanted: Qty: 1 on | | ry | - DAINA | | | | | 03/15/2017 by Monse Ross, | | | | | | /[id number] | | at [facility] | | | | | | 61 | | [facility] | | | | | | | + +--------+--------+ +--------+--------+--------+ | Xience Alpine Everolimus | Stent | N/A: | ISAACS | | 11/03/ | [id number] | | Eluting Coronary Stent System | | [place] | DIAGNOSTICS | | 2019 | 0-23 / | | Implanted: Qty: 1 on | | ry | - DAINA | | | | | 03/15/2017 by Monse Ross, | | | | | | /[id number] | | at [facility] | | | | | | 41 | | [facility] | | | | | | | + +--------+--------+ +--------+--------+--------+ | Kit Perclose Proglide 6fr - | | Right: | ISAACS | [id number] | | 04242- | | [id number]: Qty: 1 | | Groin | VASCULAR - | [id number] | | 03 / / | | on 05/19/2018 by The, | | | ABVA | 89 | | | | Khurram Isabel MD at [facility] | | | | | | | | [facility] | | | | | | | + +--------+--------+ +--------+--------+--------+ | Kit Perclose Proglide 6fr - | | Right: | ISAACS | [id number] | | 51992- | | [id number]: Qty: 1 | | Groin | VASCULAR - | [id number] | | 03 / / | | on 05/19/2018 by [facility], | | | ABVA | 89 | | | | Khurram Isabel MD at [facility] | | | | | | | | [facility] | | | | | [...] +---------+--------+ | [employer]MIN | [place] | [id number] | 09/07/19 | | | Indemn | | | COMMUN | | 19-Pre | | | ity | | | ITY | | sent | | | | | | CARE | | | | | | + +--------+ +--------+ +---------+--------+ | [employer] ADMIN | [place] | [id number] | 07/24/ | | | Indemn | | | NS | | 2016-P | | | ity | | | ADMIN | | resent | | | | | | [place] | | | | | | | | [place] | | | | | | + +--------+ +--------+ +---------+--------+ | [employer]ANS ADMIN | [place] | [id number] | 07/24/ | | | Indemn | | | NS | | 2016-P | | | ity | | | ADMIN | | resent | | | | | | [place] | | | | | | | | E | | | | | | + +--------+ +--------+ +---------+--------+ | MEDICARE | MEDICA | [id number] | 10/08/19 | [phone] | | Medica [...] [place] | | | 8 (Home) | [address] | + +--------+ +--------+ + + | Bob Will | Person | Self | [birth year] | [address] | | | al/Fam | | 1956 | [phone] | [address] [place] | | | [place] | | | 8 ([place]) | [address] | + +--------+ +--------+ + + Advance Directives + + + + + | Type | Date Recorded | Patient | Explanation | | | | Nurses Medical Assistants Phlebotomists | | + + + + + | Power of | | | | | Instructor Looping | | | | + + + [...]
--- OUTSIDE RECORDS SUMMARY | ~2020-03-04 | XMS | Encounter Summary ---
Demographics + + + | Address | [address] | | | [place] [address] | + + + | Home Phone [...] [place] | | | | | [address] | | + + + + + Care Team Providers + +------+ + | Care Count Room Clerk Name | Role | Phone | [...] | | | heart | [place], | [place] | | | | | failure | [place] [address] | [place] | | | | | (HCC) | Phone: | [address] | | | | | I50.22 | [phone] | Phone: | | | | | Procedures | Fax: | [phone] | | | | | Cardiac | [phone] | Fax: | | | | | Rehab | | [phone] | +--------+--------+ + + + + Encounter [...] Way [place], [place] | failure) ([facility]) | | | | [address] | [address] | | | | | [place] [address] | | | | | | [phone] | | | +--------+---------+ + + + [...] Gael Ortega - 07/14/2019 12:00 PM PST [facility] [address] [place] [address] Cardiac Rehab Date: 07/14/2019 Patient Information Patient Name: Bob Will Date of : 1955 Age: 63 y.o. Encounter Diagnoses Code Name Primary? I50.22 Chronic systolic CHF (congestive heart failure) ([facility]) Number of Visits Approved: 34 kx [...] by: Gael Woo, 07/14/2019 14:46 Patient Name: Bbo Will/: 1955/ ly signed by Gael Woo [...] [place] | | | | | | [id number] | | | | | | | | +--------+ + + + + | 04/16/ | Office | Cardiology | Alin Anderson | | | 2019 | Visit | | MD Cheryl Arreguin | | | | | | [address] | | | | | | [place] [address] | | | | | | [phone] | | | | | | | [...] [place] | | | | | | [address] | | | | | | | | +--------+ + + + + documented as of this encounter Visit Diagnoses + + | Diagnosis | + + | Chronic systolic CHF (congestive heart failure) (HCC) | + + documented in this encounter"
--- OUTSIDE RECORDS SUMMARY | ~2020-03-04 | XMS | Encounter Summary ---
Demographics + + + | Address | [address] | | | [place] [address] | + + + | Home Phone [...] + + + + + | [place] | ECON | [place], [place] | | | | | [address] | | + + + + + Care Team Providers + +------+ + | Care Chairman President And Chief Executive Officer Name | Role | Phone | + +------+ + PCP | Unavailable | + +------+ + Reason for Visit + +--------+ + | Reason | Onset | Comments | | | Date | | + +--------+ + | Blood Pressure | 08/18/ | | | | 2018 | | + +--------+ + Encounter Details +--------+ + + + + | Date | Type | Department | Care Team | Description | +--------+ + + + + | 08/18/ | Telephone | [facility] | Jenny, | Blood Pressure | | 2017 | | CARDIOLOGY [address] | Hansa PLANNER SCHEDULER [address] | | | | | [place], | [place], | | | | | [place] [address] | [place] [address] | | | | | [phone] | [phone] | | | | | | | [...] Telephone Encounter - Hansa Alvarado ARNP - 08/24/2018 2:29 PM PSTPerfect Continue meds as is Electronically signed by: ADARSH Stevens 08/24/2018 14:30 elephone Suzanne Mckinney RN - 08/24/2018 1:36 PM PSTPatient notified, Patient is taking m etoprolol 100 mg twice day, which is where the [facility] team wanted him. I informed him that I would notify Hansa ALTAMIRANO of this ..........................................Alia Cheng, ALFONSO on 08/24/18 at 13:38 [facility]phone [facility] - 08/24/2018 1:30 PM PSTLeft message at first cell number for pat ient to return my call. ...........................................Lilian Machado RN on at 13:30 elephone Suzanne Rehman RN - 08/23/2018 10:57 AM PSTLeft message on voicemail to return annie yocasta ..........................................Suzanne Cheng RN on 08/23/18 at 10:58 elephone [facility] - 08/19/2018 10:38 AM PSTCalled and left a message for patient to return call. ...........................................RONNY CHAPMAN RN on 08/19/18 at 1 0:39 elephone Encounter - Hansa Alvarado ARNP - 08/18/2018 4:03 PM PSTContinue with up titrating Metoprolol as ordered by [facility] heart team Electronically signed by: ADARSH Stevens 08/18/2018 16:04 elephone Encoun Franny Preciado CMA - 08/18/2018 11:20 AM PSTFormatting of this note might be d ifferent from the original. Next Visit: None Blood pressure log received from patient as follows:07/26/18---08/04/18 Medication Change: Increase Metoprolol to twice daily Date BP AM Pulse AM BP PM Pulse PM 07/26/18 108/75 78 110/70 68 07/27/18 110/75 78 115/70 69 07/28/18 112/70 78 115/70 68 07/29/18 108/69 77 110/70 68 07/30/18 108/69 80 110/75 70 07/31/18 110/70 79 120/75 68 08/01/18 115/65 68 110/75 68 08/02/18 120/68 75 120/70 69 08/03/18 118/68 70 112/70 69 08/04/18 110/68 78 110/70 69 Additional Comments: documented in this encounter Plan [...] [place] | | | | | | [address] | | | | | | | | +--------+ + + + + | 04/16/ | Office | Cardiology | Alin Anderson | | | 2019 | Visit | | MD Cheryl Arreguin | | | | | | [address] | | | | | | [place] [address] | | | | | | [phone] | | | | | | | [...] [place] | | | | | | [address] | | | | | | | | +--------+ + + + + documented as of this encounter Visit Diagnoses Not on filedocumented in this encounter"
--- OUTSIDE RECORDS SUMMARY | ~2020-03-04 | XMS | Encounter Summary ---
Demographics + + + | Address | [address] | | | [place] [address] | + + + | Home Phone [...] [place] | | | | | [address] | | + + + + + Care Team Providers + +------+ + | Care Contemporary Or Modern Dancer Name | Role | Phone | + [...] | | Atherosclero | MD Lauro | [address] [place] [address] | | | | | tic heart | [address] | [address] | | | | | disease of | [address] | [place], | | | | | jackson | [place] | [place] [address] | | | | | coronary | [place] | Phone: | | | | | artery | [address] | [phone] | | | | | without | Phone: | Fax: | | | | | angina | [phone] | [phone] | | | | | pectoris ST | Fax: | | | | | | elevation | [phone] | | | | | | (STEMI) [...] Visit | CARDIOLOGY [address] | Hansa EXTERN [address] | artery disease) | | | | [address] [place], | [place], | ([facility]) (Primary Dx); | | | | [place] [address] | [place] [address] | Benign essential | | | | [phone] | [phone] | hypertension; | | | | | | Fatigue, unspecified | | | | | | type; Acute | | | | | | anterior wall VA | | | | | | (HCC); Coronary | | | | | | artery disease | | | | | | involving jackson | | | | | | coronary artery of | | | | | | jackson heart without | | | | | [...] artery disease post recen t anterior wall VA, post PTCA and stents of the left main, LAD and LCx on 03/15/17, cardiac sh ock, left atrial appendage thrombus, recent status post stents to, [employer] placement in [facility] o n 10/17/2017.Heis being seen today [...] retention since the heart failure team in [place] told him to continue taking his furosemide on a daily basis. He will do a blood pressure log and bring it to his next appoin [facility]. Since that time, he was seen [...] least 30 minutes every day at the [facility] with h is walker. He feels better [...] Active Problem List Diagnosis Acute anterior wall VA Coronary artery disease involving jackson coronary artery of jackson heart without angina pectoris Ischemic cardiomyopathy [employer] (AICD) [employer] 10/16/17 [facility] Stecker Implantable defibrillator reprogramming/check H/O atrial [...] spray QNASL 80 mcg/actuation nasal aerosol spray [place] 2 sprays every day by intranasal route at bedtime. Cholecalciferol (VITAMIN D-3) 41637 units CAPS Take by mouth Once a [...] 42 mcg (0.06 %) nasal spra y [place] 2 sprays 3 times a day by [...] 1 tablet under the tongue every 5 hsai janeth as needed for Chest pain. 25 [...] 6 BPM Confirmed by FLORY العلي MD ([id number]) on 08/27/2018 6:38:04 AM LAB RESULTS reviewed during visit today primarily from [facility]: LIPID Lab Results Component Value Date [...] 366 (H) 06/10/2018 I reviewed records from [facility] for emergency department visit o n 08/26/2018 which is summarized in the HPI. RESULTS- I reviewed reports from [facility]: Ct Head Wo Contrast Result Date: [...] shock requiring IABP, pressor (dop amine, norepinephrine). [facility] and [facility] were on divert. Patient wasn' t transferred to [facility]. B. Echocardiogram 03/17/2017 shows LV ejection fraction is severely de creased, visually estimated left ventricular ejection fraction is 20 - 25%, left ventricular systolic thickening is segment allyabnormal,mildly reduced RV systolic function. Normal RV size, no significant valvular abnormalities seen, compared to the most recent exam dated , 03/15/2017, there is no significant changes C. At [facility], patient had another STEMI code 03/29, [...] to follow up closely with a local hvac sheet metal installer helper in [place] . He wias dischargeed with a LifeVest [...] y we will transfer the patient to [facility] for consideration of urgent coronary revascularizatio [...] He is in class II of the [place] Heart Association functional class. 2. Ischemic Cardiomyopathy: [...] in the se regions. C. S/P [employer] 10-16-17 Dr Darby [facility]. Ice interrogation today shows one episode [...] will be needing to go back to [place] in the summer. F.Today, 09/21/2018, he has had no increase in fluid retention. There is no leg swelling. He is in class II of the [place] Heart Association functional class. Heart failur e stage C. 3. Ventricular tachycardia: A. Electrophysiology Study 10/16/17 shows positive EP study for induc ible ventricular tachycardia. B.In remote interrogation he had 65 episodes of treated VT. He is n ot on any antiarrhythmic. He is going to be seen in [place] so we will let EP know about [...] week ago. Viry s was after his VA and at the same time patient was having ventricular tachycardia. He was initiated on amiodarone and then discontinued before discharge. The plan is to monitor thro ugh his device and see if this is a problem that needs to be addressed. Patient is not on anticoagulation he was left that way from [facility]. Patient has had several GI bleeds [...] start titrating metoprolol increases as recommended by [facility] heart failure team and continue close monitoring of blood pressure. 4. He will follow up in 3 months for office visit and device interrogation, or sooner with concerns. He will have fasting labs prior to visit for lipid profile, CMP and CBC, if not done prior by another provider. Portions of this chart may have been created with Oonair voice recognition software. Occasi onal wrong-word or [...] [place] | | | | | | [address] | | | | | | | | +--------+ + + + + | 04/16/ | Office | Cardiology | Alin Anderson | | | 2019 | Visit | | MD Cheryl Arreguin | | | | | | [address] | | | | | | [place] [address] | | | | | | [phone] | | | | | | | [...] [place] | | | | | | [address] | | | | | | | [...] | + + | Acute anterior wall VA (HCC) Acute myocardial infarction of other anterior wall, | | episode of care unspecified | + + | Coronary artery disease involving jackson coronary artery of jackson heart without | | angina pectoris | + + | Ischemic cardiomyopathy Other specified forms of chronic ischemic heart disease | + + | Abdominal aortic aneurysm (AAA) without rupture (HCC) | + + | Mixed hyperlipidemia | + + documented in this encounter
--- OUTSIDE RECORDS SUMMARY | ~2020-03-04 | XMS | Encounter Summary ---
Demographics + + + | Address | [address] | | | [place] [address] | + + + | Home Phone [...] [place], [place] | | | | | [address] | | + + + + + Care Team Providers + +------+ + | Care Quill Fixer Name | Role | Phone | [...] + | 08/24/ | Telephone | [facility] | Randy Figueroa, | Other (plan of care) | | 2017 | | CARDIOLOGY [address] | [address] | | | | | [place], | [place], | | | | | [place] [address] | [place] [address] | | | | | [phone] | [phone] | | | | | | | [...] weeks. ----- Message ----- From: Lorelei Cruz, TUBE CLEANER Sent: 08/24/2018 13:31 To: Randy Figueroa MD [...] him. Thank you so much. Lorelei Cruz, firmware engineer documented in this e ncounter Plan of [...] | | | | | | [address] [place], [place] | | | | | | [address] | | | | | | | | +--------+ + + + + | 04/16/ | Office | Cardiology | Alin Anderson | | 2019 | Visit | | MD [address] | | | | | | [address] | | | | | | [place] [address] | | | | | | [phone] | | | | | | | | +--------+ + + + + | 04/16/ | Procedure | Cardiology | | | | 2019 | visit | | | | +--------+ + + + + | 04/25/ | Office | Cardiology | Rocio Pearl, | | | 2019 | Visit | | MD Cheryl URENA | | | | | | [facility] | | | | | | [address] | | | | | | | [...] y.o. MEDICAL | | | RECORD NUMBER: [id number] PRIMARY CARE: Young Haque DO | | | READING JOIST SETTER: Randy Figueroa MD 48-HOUR HOLTER | | [...] by: Randy | | | MD [place] [facility] 09/02/2018, 13:17 | | + + [...]
--- OUTSIDE RECORDS SUMMARY | ~2020-03-04 | XMS | Encounter Summary ---
Demographics + + + | Address | [address] | | | [place] [address] | + + + | Home Phone [...] [place] | | | | | [address] | | + + + + + Care Team Providers + +------+ + | Care Bead Machine Operator Name | Role | Phone [...] | Office | [facility] | mAy Olivares V, | Chronic systolic CHF | | 2020 | Visit | MED CTR CARDIAC | MD [address] | (congestive heart | | | | REHABILITATION [address] | [address] [place], [place] | failure) ([facility]) | | | | [address] [place] | [address] | (Primary Dx) | | | | [place] [address] | | | | | | [phone] | | | +--------+---------+ + + + [...] [place] | | | | | | [address] | | | | | | | | +--------+ + + + + | 04/16/ | Office | Cardiology | Alin Anderson | | | 2019 | Visit | | MD Cheryl Arreguin | | | | | | [address] | | | | | | [place] [address] | | | | | | [phone] | | | | | | | [...] [place] | | | | | | [address] | | | | | | | | +--------+ + + + + documented as of this encounter Visit Diagnoses + + | Diagnosis | + + | Chronic systolic CHF (congestive heart failure) (HCC) - Primary | + + documented in this encounter"
--- OUTSIDE RECORDS SUMMARY | ~2020-03-04 | XMS | Encounter Summary ---
Demographics + + + | Address | [address] | | | [place] [address] | + + + | Home Phone [...] [place], [place] | | | | | [address] | | + + + + + Care Team Providers + +------+ + | Care Crystallography Teacher Name | Role | Phone | [...] [place] | | | | | minto | [place] | [place] | | | | | coronary | [address] | [address] | | | | | artery of | Phone: | Phone: | | | | | minto heart | [phone] | [phone] | | | | | without | Fax: | Fax: | | | | | angina | [phone] | [phone] | | | | | pectoris | | | +--------+ + + + + + Encounter Details +--------+---------+ + + + | Date | Type | Department | Care Team | Description | +--------+---------+ + + + | 12/07/ | Office | [facility] | Randy Figueroa, | Coronary artery | | 2019 | Visit | MED CTR CARDIAC | MD [address] | disease involving | | | | REHABILITATION [address] | [place], | minto coronary | | | | [address] [place] | [place] [address] | artery of minto | | | | [place] [address] | [phone] | heart without angina | | | | [phone] | | pectoris (Primary | | | [...] Gael Ortega - 12/07/2018 10:00 AM PDT [facility] CARDIAC REHABILITATION [address] [place] [address] Cardiac Rehab Date: 12/07/2018 Patient Information Patient Name: Bob Will Date of : 1955 Age: 63 y.o. Encounter Diagnoses Code Name Primary? I25.10 Coronary artery disease involving minto coronary artery of minto heart without angina pectoris Yes Z98.61 Post [...] [place] | | | | | | [address] | | | | | | | | +--------+ + + + + | 04/16/ | Office | Cardiology | Alin Anderson | | | 2019 | Visit | | MD Cheryl Arreguin | | | | | | [address] | | | | | | [place] [address] | | | | | | [phone] | | | | | | | [...] [place] | | | | | | [address] | | | | | | | | +--------+ + + + + documented as of this encounter Visit Diagnoses + + | Diagnosis | + + | Coronary artery disease involving minto coronary artery of minto heart without | | angina pectoris - Primary | + + | Post PTCA Postsurgical percutaneous transluminal coronary angioplasty status | + + documented in this encounter"
--- OUTSIDE RECORDS SUMMARY | ~2020-03-04 | XMS | Encounter Summary ---
Demographics + + + | Address | [address] | | | [place] [address] | + + + | Home Phone [...] [place], [place] | | | | | [address] | | + + + + + Care Team Providers + +------+ + | Care Forest Firefighter Name | Role | Phone | + [...] Coronary | MD Lauren | [address] | | | | | artery | [address] | [place], | | | | | disease, | [address] | [place] | | | | | angina | [place], | [address] | | | | | presence | [place] [address] | Phone: | | | | | unspecified, | Phone: | [phone] | | | | | unspecified | [phone] | Fax: | | | | | vessel or | Fax: | [phone] | | | | | lesion type, | [phone] | | | | | | unspecified | | | | | | | whether | | | | | | | upper sioux or | | | | | | | transplanted | | | | | | | heart | | | | | | | Procedures | | | | | | | ECHO | | | | | | | Complete [place] | | | | | | | ECHO HEART | | | | | | | XTHORACIC,[place] | | | | | | | MPLETE W | | | | | | | DOPPLER [place] | | | | | | [...] | +--------+ + + + + | 05/07/ | Hospital | [facility] | Lauren Figueroa, | Coronary artery | | 2017 | Encounter | MED CTR ECHO [address] | [address] [place] [address] | disease, angina | | | | [place] | [address] [place], | presence | | | | [place] [address] | [place] [address] | unspecified, | | | | [phone] | [phone] | unspecified vessel | | | | | | or lesion type, | | | | | [place] | unspecified whether | | | | | M, Technologist | upper sioux or | | | | | [...] + + + +---------+ + + | warfarin | Take 10 mg by mouth | | 0 | 04/02/20 | | | (COUMADIN) 5 mg | on 04/02/2017, then | | | 17 | 7 | | tablet | take 7.5 mg (one and | | | | | | | one-half tablets) | | | | | | | daily starting | | | | | | | 04/03/2017 | | | | | | | Indications: JAVON | | | | | | | thrombus | | | | | + + [...] | | | | | [address] [facility] | | | | | | [address] [place] | | | | | | [address] | | | | | | | | +--------+ + + + + | 04/16/ | Office | Cardiology | Alin Anderson | | | 2019 | Visit | | MD Cheryl Arreguin | | | | | | [address] | | | | | | [place] [address] | | | | | | [phone] | | | | | | | [...] [place] | | | | | | [address] | | | | | | | | +--------+ + + + + documented as of this encounter Procedures + +--------+ + + + | Procedure Name | Priori | Date/Time | Associated Diagnosis | Comments | | | ty | | | | + +--------+ + + + | ECHO COMPLETE | Routin | 05/07/2017 | Coronary artery | Results for this | | | e | 8:45 AM | disease, angina | procedure are in the | | | | PDT | presence | results section. | | | | | unspecified, | | | | | | unspecified vessel | | | | | | or lesion type, | | | | | | unspecified whether | | | | | | upper sioux or | | | | | [...] Room Number J Patient Number | [facility] | | [id number] Date of Study 05/07/2017 Visit Number | - IMAGING | | [id number] Referring | | | Physician CAROLINA AGUILAR Number Date of 1955 | | | Pipe Stress Engineer CHRISTEN LILLY, | | | [place] Age | | | 61 year(s) Interpreting | | | CAROLINA AGUILAR | | | Import/Export Clerk LAUREN FIGUEROA MD Gender | | | Male Nurse | | | Stress Level Vial Inspector Procedure Type of Study TTE procedure: | [...] Volume: 51.69 ml | | | EF Frkflpuic71% Left | | | Ventricle Diastolic Dimension: [...] Volume: 51.69 ml | | | EF Gffhirkkz69% | | | | | | Left [...] Room Number J Patient | | Number [id number] Date of Study 05/07/2017 Visit Number [id number] | | Referring Physician CAROLINA AGUILAR Number Date of | | 1955 Pipe Stress Engineer CHRISTEN LILLY, | | [place] Age 61 year(s) Interpreting | | CAROLINA AGUILAR Import/Export Clerk LAUREN | | MD CAROLINA Gender Male [...] LA Volume: 51.69 ml | | EF Pycycmsml09% Left Ventricle Diastolic Dimension: 4.6 cm | [...] LA Volume: 51.69 ml | | EF Ttlsaagiw59% | | | | Left Ventricle | [...] | [address] | [address] | [place] | [phone] | | [facility] | | [address] | | | - IMAGING | | | | + + + + + documented in this encounter Visit Diagnoses + + | Diagnosis | + + | Coronary artery disease, angina presence unspecified, unspecified vessel or lesion | | type, unspecified whether upper sioux or transplanted heart | + + documented in this encounter"
--- OUTSIDE RECORDS SUMMARY | ~2020-03-04 | XMS | Encounter Summary ---
Demographics + + + | Address | [address] | | | [place] [address] | + + + | Home Phone [...] [place], [place] | | | | | [address] | | + + + + + Care Team Providers + +------+ + | Care Instrument Technologist Name | Role | Phone | + +------+ + PCP | Unavailable | + +------+ + Encounter Details +--------+ + + + + | Date | Type | Department | Care Team | Description | +--------+ + + + + | 11/23/ | Abstract | [facility] [place] | Jenny, | | | 2018 | | CARDIOLOGY [address] | ADARSH [address] | | | | | [place], | [place], | | | | | [place] [address] | [place] [address] | | | | | [phone] | [phone] | | | | | | | [...] [place] | | | | | | [address] | | | | | | | | +--------+ + + + + | 04/16/ | Office | Cardiology | Alin Anderson | | | 2019 | Visit | | MD Cheryl Arreguin | | | | | | [address] | | | | | | [place] [address] | | | | | | [phone] | | | | | | | [...] [place] | | | | | | [address] | | | | | | | [...]
--- OUTSIDE RECORDS SUMMARY | ~2020-03-04 | XMS | Encounter Summary ---
Demographics + + + | Address | [address] | | | [place] [address] | + + + | Home Phone [...] [place] | | | | | [address] | | + + + + + Care Team Providers + +------+ + | Care Safety Intern Name | Role | Phone | [...] Description | +--------+---------+ + + + | 10/13/ | Office | [facility] | Amy Olivares V, | Chronic systolic CHF | | 2020 | Visit | MED CTR CARDIAC | MD [address] | (congestive heart | | | | REHABILITATION [address] | [address] [place], [place] | failure) ([facility]) | | | | [address] | [address] | (Primary Dx) | | | | [place] [address] | | | | | | [phone] | | | +--------+---------+ + + + [...] this encounter Progress Notes Gael Woo - 10/13/2019 9:00 AM PSTPatient tolerated exercise session without [...] [place] | | | | | | [address] | | | | | | | | +--------+ + + + + | 04/16/ | Office | Cardiology | Alin Anderson | | | 2019 | Visit | | MD Cheryl Arreguin | | | | | | [address] | | | | | | [place] [address] | | | | | | [phone] | | | | | | | [...] [place] | | | | | | [address] | | | | | | | | +--------+ + + + + documented as of this encounter Visit Diagnoses + + | Diagnosis | + + | Chronic systolic CHF (congestive heart failure) (HCC) - Primary | + + documented in this encounter"
--- OUTSIDE RECORDS SUMMARY | ~2020-03-04 | XMS | Encounter Summary ---
Demographics + + + | Address | [address] | | | [place] [address] | + + + | Home Phone [...] [place] | | | | | [address] | | + + + + + Care Team Providers + +------+ + | Care It Risk And Assurance Senior Manager Name | Role | Phone | [...] [address] [place] | | | | | [place], [place] | [address] [place], [place] | | | | | [address] | [address] | | | | | [phone] | | | +--------+ + + + [...] [place] | | | | | | [id number] | | | | | | | | +--------+ + + + + | 04/16/ | Office | Cardiology | Alin Anderson | | 2019 | Visit | | MD [address] | | | | | | [address] | | | | | | [place] [address] | | | | | | [phone] | | | | | | | [...] [place] | | | | | | [address] | | | | | | | | +--------+ + + + + documented as of this encounter Visit Diagnoses Not on filedocumented in this encounter"
--- OUTSIDE RECORDS SUMMARY | ~2020-03-04 | XMS | Encounter Summary ---
Demographics + + + | Address | [address] | | | [place] [address] | + + + | Home Phone [...] [place], [place] | | | | | [address] | | + + + + + Care Team Providers + +------+ + | Care Time Piece Repairer Name | Role | Phone | [...] Echo | | | | | | [place], | [address] | | | | | Cardiomyopat | [place], CONCRETE BUSTER OPERATOR | [place], | | | | | hy, | [address] | [place] | | | | | unspecified | [place] | [address] | | | | | type (HCC) | [place], | Phone: | | | | | Coronary | [place] | [phone] | | | | | artery | [address] | Fax: | | | | | disease, | Phone: | [phone] | | | | | angina | [phone] | | | | | | presence | Fax: | | | | | | unspecified, | [phone] | | | | | | unspecified | | | | | | | vessel or | | | | | | | lesion type, | | | | | | | unspecified | | | | | | | whether | | | | | | | confederated gosh[place] or | | | | | | | transplanted | | | | | | | heart | | | | | | | Procedures | | | | | | | ECHO | | | | | | | Complete [place] | | | | | | | ECHO HEART | | | | | | | XTHORACIC,[place] | | | | | | | MPLETE W | | | | | | | DOPPLER [place] | | | | | | [...] + + | 05/26/ | Telephone | [facility] [place] | Jenny, | Other (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 | | 2016 | | CARDIOLOGY [address] | [address] | to work) | | | | [place], | [place], | | | | | [place] [address] | [place] [address] | | | | | [phone] | [phone] | | | | | | | [...] Dr Raul souza, faxed to Marina at [phone] ...........................................Lilian fajardo RN on 06/05/17 at 10:57 elephone Encounter - Lilian Machado RN - 05/26/2017 10:44 AM PDTSpoke with Adriana at [facility], DOT rules are federal so the details [...] | | | | [address] [place] | | | | | | [address] | | | | | | | | +--------+ + + + + | 04/16/ | Office | Cardiology | Alin Anderson | | | 2019 | Visit | | MD [address] | | | | | | [address] | | | | | | [facility] [place] [address] | | | | | | [phone] | | | | | | | [...] [place] | | | | | | [address] | | | | | | | [...] Number J Patient Number | | | [id number] Date of Study 06/04/2017 Visit Number | | | [id number] Referring | | | Physician THERESE SY Number Date of 1955 | | | Spa Associate CHUCK VALVERED, | | | [facility] Age | | | 61 year(s) Interpreting LAUREN | | | MD NEMO | | | Welder And Fitter Gender Male Nurse | | | Stress Air Crew Officer Procedure | | | Type of Study TTE procedure: ECHO Complete. Procedure dateDate: | | | 06/04/2017Start: 07:51 AM Technical Quality: Good visualizationStudy | | | Location: Echo LabIndications: CARDIOMYOPATHY 425.4/ I42.9 and cAD | | | [place] CORONARY XPSXFU685.01/ I25.10.Patient Status: RoutineHeight: 70 | | | [...] Structures | | | Left Atrium EF Edzypdsxm62% Left Ventricle Diastolic | | | Dimension: [...] | | | | | | EF Rjeewgtrv55% | | | | | | Left [...] Room Number J Patient | | Number [id number] Date of Study 06/04/2017 Visit Number [id number] | | Referring Physician THERESE SY Number Date of | | 1955 Spa Associate CHUCK VALVERDE, | | [facility] Age 61 year(s) Interpreting | | LAUREN CHESTER MD Welder And Fitter Gender Male | | Nurse Stress TechnicianProcedureType of Study | | TTE procedure: ECHO Complete.Procedure dateDate: 06/04/2017Start: 07:51 AMTechnical | | Quality: Good visualizationStudy Location: Echo LabIndications: CARDIOMYOPATHY 425.4/ | | I42.9 and cAD [place] CORONARY VYDKTF202.01/ I25.10.Patient Status: RoutineHeight: 70 | | inchesWeight: [...] > 50%.Structures | | Left Atrium EF Czmfbvivp26% Left Ventricle Diastolic Dimension: 5.6 cm Septum [...] Left Atrium | | | | EF Unuesgydp97% | | | | Left Ventricle | [...] or lesion | | type, unspecified whether confederated goshute or transplanted heart | + + documented in this encounter"
--- OUTSIDE RECORDS SUMMARY | ~2020-03-04 | XMS | Encounter Summary ---
Demographics + + + | Address | [address] | | | [place] [address] | + + + | Home Phone [...] [place] | | | | | [address] | | + + + + + Care Team Providers + +------+ + | Care Cleaning Professional Name | Role | Phone | [...] artery | ADARSH Santo | [address] | | | | | disease | [address] | [place], | | | | | involving | [place] | [place] | | | | | k[place]ze | [place], | [address] | | | | | coronary | [place] | Phone: | | | | | artery of | [address] | [phone] | | | | | kenaitze heart | Phone: | Fax: | | | | | without | [phone] | [phone] | | | | | angina | Fax: | | | | | | pectoris | [phone] | | | | | | Acute [...] | disease involving | | | | [place], | [place], | kenaitze coronary | | | | [place] [address] | [place] [address] | artery of kenaitze | | | | [phone] | [phone] | heart without angina | | | [...] [place] | | | | | | 6[address] | | | | | | | | +--------+ + + + + | 04/16/ | Office | Cardiology | Alin Anderson | | | 2019 | Visit | | MD [address] | | | | | | [address] | | | | | | [place] [address] | | | | | | [phone] | | | | | | | | +--------+ + + + + | 04/16/ | Procedure | Cardiology | | | | 2019 | visit | | | | +--------+ + + + + | 04/25/ Office | Cardiology | Rocio Pearl, | | | 2019 | Visit | | MD Cheryl URENA | | | | | | [place] | | | | | | [address] | | | | | | | [...] Expires: | | | Medicine | | kenaitze coronary | 04/19/2020 | | | | | artery of kenaitze | | | | | | heart without angina | | | | | | pectoris Acute | | | | | | systolic congestive | | | | | | heart failure (HCC) | | + + +--------+ + + documented as of this encounter Visit Diagnoses + + | Diagnosis | + + | Coronary artery disease involving kenaitze coronary artery of kenaitze heart without | | angina pectoris - Primary | + + | Acute systolic congestive heart failure (HCC) Acute systolic heart failure | + + documented in this encounter"
--- OUTSIDE RECORDS SUMMARY | ~2020-03-04 | XMS | Encounter Summary ---
Demographics + + + | Address | [address] | | | [place] [address] | + + + | Home Phone [...] [place] | | | | | [address] | | + + + + + Care Team Providers + +------+ + | Care Social Media Editor Name | Role | Phone | [...] | | aneurysm, | [address] | [address] | | | | | without | [place], | [place], | | | | | rupture | [place] [address] | [place] [address] | | | | | (HCC) ST | Phone: | Phone: | | | | | elevation | [phone] | [phone] | | | | | (STEMI) | Fax: | Fax: | | | | | myocardial | [phone] | [phone] | | | | | infarction | [...] | | | | | | | akhiok | | | | | | | [...] + | 03/24/ | Procedure | [facility] | Randy Figueora, | Implantable | | 2019 | visit | CARDIOLOGY [address] | [facility] | defibrillator | | | | [address] [place], | [place], | reprogramming/check | | | | [place] [address] | [place] [address] | (Primary Dx); SENIOR DRUPAL DEVELOPER-D | | | | [phone] | [phone] | (AICD) Medtronic | | | | [...] [place] | | | | | | [address] | | | | | | | | +--------+ + + + + | 04/16/ | Office | Cardiology | Alin Anedrson | | 2019 | Visit | | MD Cheryl Arreguin | | | | | | [address] | | | | | | [place] [address] | | | | | | [phone] | | | | | | | [...] [place] | | | | | | [address] | | | | | | | [...] results section. | | | | | SENIOR DRUPAL DEVELOPER-D (AICD) | | | | | | [...] implantable cardiac defibrillator | + + | SENIOR DRUPAL DEVELOPER-D (ZANED) Medtronic 10/16/17 EULOGIO Raulitogideon | + + | Ischemic cardiomyopathy Other specified forms of chronic ischemic heart disease | + + | Acute on chronic systolic congestive heart failure (HCC) Acute on chronic systolic | | heart failure | + + documented in this encounter"
--- OUTSIDE RECORDS SUMMARY | ~2020-03-04 | XMS | Encounter Summary ---
Demographics + + + | Address | [address] | | | [place] [address] | + + + | Home Phone [...] [place], [place] | | | | | [address] | | + + + + + Care Team Providers + +------+ + | Care Slitting Machine Feeder Name | Role | Phone | + +------+ + | Chato Matson MD | PCP | | + +------+ + Reason for Visit + +--------+ + | Reason | Onset | Comments | | | Date | | + +--------+ + | Blood Pressure | 07/01/ | | | | 2017 | | + +--------+ + Encounter Details +--------+ + + + + | Date | Type | Department | Care Team | Description | +--------+ + + + + | 07/01/ | Telephone | [facility] | Jenny, | Blood Pressure | | 2017 | | CARDIOLOGY [address] | [facility] [employer] [address] | | | | | [place], | [place], | | | | | [place] [address] | [place] [address] | | | | | [phone] | [phone] | | | | | | | [...] Telephone Encounter - Lilian Machado RN - 07/06/2018 3:05 PM PDTBob is notified. ...... .....................................Lilian Machado RN on 07/06/18 at 15:09 elephone Encounter - Hansa Alvarado ARNP - 07/06/2018 9:11 AM PDTPerfect. If his blood pressures are as shown in the last bp log (included in this series of phone notes). Then try increasing metop rolol to 2 tablets in the morning and 2 tablets in the evening (he previously was taking 1 i n am and 2 in pm). And do a blood pressure log. Electronically signed by: ADARSH Stevens 07/06/2018 9:[address] Lilian De La Cruz RN - 07/05/2018 12:57 PM PDTSpoke with Ashok, he is taking Entresto 97 /103 twice daily at this time. I will notify Hansa and see what else she would advise at t his time ...........................................Lilian Machado RN on 07/05/18 at 13:00 elephone Encounter - Hansa Alvarado ARNP - 07/01/2018 4:27 PM PDTMake sure patient is taking Entresto 49 /51 mg twice a day. If he is taking that ... Then I want him to increase Entresto 49/51 mg t o 1 and 1/2 tablets twice a day and do another blood pressure log and a BMP in 1 week. Thanks! Electronically signed by: ADARSH Stevens 07/01/2018 16:31 elephone Franny Benton CMA - 07/01/2018 3:02 PM PDTFormatting of this note might be d ifferent from the original. Next Visit:07/22/18 Blood pressure log received from patient as follows:06/11/18--06/24/18 Medication Change: Entrests twice a day Date BP AM Pulse AM BP PM Pulse PM 06/11/18 120/70 75 106/62 68 06/12/18 106/63 78 108/70 78 8 110/68 77 110/67 75 06/14/18 107/62 65 110/65 68 06/15/18 110/68 70 108/68 67 06/16/18 111/70 71 110/65 66 06/17/18 102/60 69 90/54 67 06/18/18 110/65 66 108/68 68 06/19/18 108/66 78 110/56 68 06/20/18 109/66 69 109/65 69 06/21/18 113/71 67 118/67 78 06/22/18 114/68 72 114/67 68 06/23/18 119/74 75 116/70 78 06/24/18 118/76 77 119/74 78 Additional Comments: Next Visit:07/22/18 Weight log received from patient as follows:06/11/18---06/24/18 Medication Change: Date Weight Date Weight 06/11/18 217 06/12/18 210 06/13/18 210 06/14/18 215 06/15/18 215 06/16/18 217 06/17/18 215 06/18/18 217 06/19/18 212 06/20/18 210.6 06/21/18 215.6 06/22/18 215.6 06/23/18 215.0 06/24/18 214 Additional Comments: documented in this encounter Plan [...] [place] | | | | | | [id number] | | | | | | | | +--------+ + + + + | 04/16/ | Office | Cardiology | Alin Anderson | | | 2019 | Visit | | MD [address] | | | | | | [address] | | | | | | [place] [address] | | | | | | [phone] | | | | | | | [...] [place] | | | | | | [address] | | | | | | | | +--------+ + + + + documented as of this encounter Visit Diagnoses Not on filedocumented in this encounter"
--- OUTSIDE RECORDS SUMMARY | ~2020-03-04 | XMS | Encounter Summary ---
Demographics + + + | Address | [address] | | | [place] [address] | + + + | Home Phone [...] [place] | | | | | [address] | | + + + + + Care Team Providers + +------+ + | Care Contact Acid Plant Operator Helper Name | Role | Phone | [...] [address] [place], [place] | failure) ([facility]) | | | | [address] | [address] | (Primary Dx) | | | | [place] [address] | | | | | | [phone] | | | +--------+---------+ + + + [...] [place] | | | | | | [address] | | | | | | | | +--------+ + + + + | 04/16/ | Office | Cardiology | Alin Anderson | | | 2019 | Visit | | MD Cheryl Arreguin | | | | | | [address] | | | | | | [place] [address] | | | | | | [phone] | | | | | | | [...] [place] | | | | | | [address] | | | | | | | | +--------+ + + + + documented as of this encounter Visit Diagnoses + + | Diagnosis | + + | Chronic systolic CHF (congestive heart failure) (HCC) - Primary | + + documented in this encounter"
--- OUTSIDE RECORDS SUMMARY | ~2020-03-04 | XMS | Encounter Summary ---
Demographics + + + | Address | [address] | | | [place] [address] | + + + | Home Phone [...] | | | | | [place] [address] | | + + + + + Care Team Providers + +------+ + | Care Manager Enterprise Content Management Name | Role | Phone | [...] Hernandez | | | | | at [facility] | [facility] | | | | | [address] | [place] [address] | | | | | [address] | | | | | | [place], [address] [place] [address] | | | | | | [place], [place] | | | | | | [address] | | | | | | [phone] | | | +--------+ + + + [...]
--- OUTSIDE RECORDS SUMMARY | ~2020-03-04 | XMS | Encounter Summary ---
Demographics + + + | Address | [address] | | | [place] [address] | + + + | Home Phone | | + + + | Preferred Language | Unknown | + + + | Marital Status | | + + + | Yazidi Affiliation | Unknown | + + + [...] [place], [place] | | | | | [address] | | + + + + + Care Team Providers + +------+ + | Care Finishing Room Supervisor Name | Role | Phone [...] Monitor | CARDIOLOGY [address] | [address] | defibrillator | | | | [place], | [place], | reprogramming/check | | | | [place] [address] | [place] [address] | (Primary Dx); EMPLOYMENT SPECIALIST-D | | | | [phone] | [phone] | (AICD) Medtronic | | | | [...] Paceart documentation and remote PDF scanned into Gymtrack for remote interrogation results. Data collected by [...] | 2019 | Visit | | ADARSH [address] | | | | | | [address] [facility] | | | | | | [address] [place], [place] | | | | | | [id number] | | | | | | | | +--------+ + + + + | 04/16/ | Office | Cardiology | Alin Anderson | | | 2019 | Visit | | MD Cheryl Arreguin | | | | | | [address] | | | | | | [place] [address] | | | | | | [phone] | | | | | | | [...] [place] | | | | | | [address] | | | | | | | [...] results section. | | | | | EMPLOYMENT SPECIALIST-D (AICD) | | | | | [...] | | | remote PDF scanned into Gymtrack for remote interrogation results. Data | | [...] implantable cardiac defibrillator | + + | EMPLOYMENT SPECIALIST-D (GABBI) Medtronic 10/16/17 EULOGIO Darby | + + | Ischemic cardiomyopathy Other specified forms of chronic ischemic heart disease | + + documented in this encounter"
--- OUTSIDE RECORDS SUMMARY | ~2020-03-04 | XMS | Encounter Summary ---
Demographics + + + | Address | [address] | | | [place] [address] | + + + | Home Phone [...] + + + | Author | [facility] | + + + | Organization | [facility] | + + + | Address | Unknown | + + + | Phone | Unavailable | + + + Support + + + + + | Name | Relationship | Address | Phone | + + + + + | [place] Will | ECON | [address] | | | | | [place] [address] | | + + + + + Care Team Providers + +------+ + | Care Industrial Maintenance Instructor Name | Role | Phone | [...] | | | | | | [place] [address] | | | +--------+--------+ + + + [...]
--- OUTSIDE RECORDS SUMMARY | ~2020-03-04 | XMS | Encounter Summary ---
Demographics + + + | Address | [address] | | | [place] [address] | + + + | Home Phone [...] [place] | | | | | [address] | | + + + + + Care Team Providers + +------+ + | Care Ict Developer Name | Role | Phone | [...] | | | | | unspecified | [address] | [address] | | | | | HF | [place], | [place] | | | | | chronicity, | [place] [address] | [place], [place] | | | | | unspecified | Phone: | [address] | | | | | heart | [phone] | Phone: | | | | | failure type | Fax: | [phone] | | | | | (HCC) | [phone] | Fax: | | | | | Procedures | | [phone] | | | | | MD | | | [...] | | | | | Atherosclero | [address] | [address] | | | | | tic heart | [address] | [place] [address] | | | | | disease of | [address] | [place], | | | | | pam[place]key | [address] | [place] [address] | | | | | coronary | [place] | Phone: | | | | | artery | [address] | [phone] | | | | | without | Phone: | Fax: | | | | | angina | [phone] | [phone] | | | | | pectoris ST [...] + + | 04/09/ | Office | [facility] | Randy Figueroa, | Coronary artery | | 2018 | Visit | CARDIOLOGY [address] | [address] [place] | disease involving | | | | [place], | [place], | [place] coronary | | | | [place] [address] | [place] [address] | artery of [place]key | | | | [phone] | [phone] | heart without angina | | | [...] coronary artery disease post recent anterior wall SC, post PTCA and stents of the left main, LAD and LCx on 03/15/17, cardiac shoc k, left atrial appendage thrombus, recent status post stents to , CULINARY INTERNSHIP-D placement in [facility] on 10/17/2017. He is being seen [...] anterior wall SC Coronary artery disease involving pamunkey coronary artery of pamunkey heart without angina pectoris Ischemic cardiomyopathy Pulmonary edema CULINARY INTERNSHIP-D (AICD) Medtronic 10/16/17 [facility] Stecker Implantable defibrillator reprogramming/check H/O atrial flutter Tachycardia GERD (gastroesophageal reflux disease) PAD (peripheral artery disease) CURRENT MEDICATIONS Current Outpatient Prescriptions Medication Sig Dispense Refill aspirin 81 MG tablet Take 81 mg by mouth Daily. atorvaSTATin (LIPITOR) 80 MG tablet Take 1 tablet by mouth nightly. 30 tablet 5 Cholecalciferol (VITAMIN D-3) 66231 units CAPS Take by mouth Once a [...] RESULTS reviewed during visit today primarily from [facility]: LIPID Lab Results Component Value Date [...] shock requiring IABP, pressor (dopa mine, norepinephrine). [facility] were on divert. Patient wasn't transferred to [facility]. B. Echocardiogram 03/17/2017 shows LV ejection fraction is severely de creased, visually estimated left ventricular ejection fraction is 20 - 25%, left ventricular systolic thickening is segmentally abnormal,mildly reduced RV systolic function. Normal R V size, no significant valvular abnormalities seen, compared to the most recent exam dated, 03/15/2017, there is no significant changes C. At [facility], patient had another STEMI code 03/29, [...] to follow up closely with a local inclined railway operator in [place] . He wias dischargeed with a LifeVest [...] we will tr ansfer the patient to [facility] for consideration of urgent coronary revascularization. [...] He is in a class I of [place] Heart Association functional class. There is no [...] myocardium in these regions. C. S/P Medtronic CULINARY INTERNSHIP-D 10-16-17 Dr Darby, [facility]. Ice interrogation today shows one episode [...] week ago. This was after h is SC and at the same time patient was having ventricular tachycardia. He was initiated on amiodarone and then discontinued before discharge. The plan is to monitor through his device and see if this is a problem that needs to be addressed. Patient is not on anticoagulation he was left that way from [facility]. Patient has had several GI bleeds [...] reviewed and edited this note. Heather Cui, Interactive Digital Media Specialist 04/09/2018 I, Randy Figueroa MD, personally performed the services described in this documentation, as scribed in my presence and it is both accurate and complete. Heather Cui, Med Ass t 04/09/2018 8:28 Electronically signed by: Randy Figueroa MD [facility] 04/09/2018 Portions of this chart may have been created with LoopUp voice recognition software. Occasi onal wrong-word or [...] | 03/12/ | Office | Nephrology | [facility], | | | 2019 | Visit | | ADARSH [address] | | | | | | [address] [facility] | | | | | | [address] [place] | | | | | | [address] | | | | | | | | +--------+ + + + + | 04/16/ | Office | Cardiology | Alin Anderson | | | 2019 | Visit | | MD Cheryl Arreguin | | | | | | [address] | | | | | | [place] [address] | | | | | | [phone] | | | | | | | [...] [place] | | | | | | [address] | | | | | | | [...] + + | Coronary artery disease involving pamunkey coronary artery of pamunkey heart without | | angina pectoris - Primary | + + | Ischemic cardiomyopathy Other specified forms of chronic ischemic heart disease | + + | Heart failure, unspecified HF chronicity, unspecified heart failure type (HCC) | + + documented in this encounter
--- OUTSIDE RECORDS SUMMARY | ~2020-03-04 | XMS | Encounter Summary ---
Demographics + + + | Address | [address] | | | [place] [address] | + + + | Home Phone [...] [place], [place] | | | | | [address] | | + + + + + Care Team Providers + +------+ + | Care Dethistler Operator Name | Role | Phone | [...] | | involving | [address] | [place] | | | | | [place] | [place] [address] | [place] | | | | | coronary | [address] | [address] | | | | | artery of | Phone: | Phone: | | | | | [place] heart | [phone] | [phone] | | | | | without | Fax: | Fax: | | | | | angina | [phone] | [phone] | | | | | pectoris | | | +--------+ + + + + + Encounter Details +--------+---------+ + + + | Date | Type | Department | Care Team | Description | +--------+---------+ + + + | 09/30/ | Office | [facility] | Rahullindacathy Lindarahul, | Coronary artery | | 2019 | Visit | MED CTR CARDIAC | MD [address] | disease, angina | | | | REHABILITATION [address] | [facility] [employer], | presence | | | | [address] [place] | [place] [address] | unspecified, | | | | [place] [address] | [phone] | unspecified vessel | | | | [phone] | | or lesion type, | | | | | | unspecified whether | | | | | | [place] or | | | | | | [...] of this encounter Progress Gael Ortega - 09/30/2018 10:[address] [facility] [address] [place] [address] Cardiac Rehab 60 Day Review Date: 09/30/2018 Patient Information Patient Name: Bob Will Date of : 1955 Age: 62 y.o. Referring Provider: Randy Figueroa MD Encounter Diagnoses Code Name Primary? I25.10 Coronary artery disease, angina presence unspecified, unspecified vessel or lesi on type, unspecified whether [place] or transplanted heart Yes Z98.61 Post PTCA Cardiac Rehab Phase II Leon atment Plan Bob Will (Bob) is a 62 y.o. male with a history of coronary artery disease post rec ent anterior wall DC, post PTCA and stents of the left main, LAD and LCx on 03/15/17, cardiac shock, left atrial appendage thrombus, pneumonitis and septic shock, and severe in-stent chery nosis, DC in Sep 2017, episodes of VT and subsequent PTCA in Oct 2017, CHF, LVEF 35-40%, PIECE MARKER SMALL ARMS -D placement in [facility] on 10/17/2017. He has recently increased [...] Congestive Heart Failure book Date received: 04/22/18 Gildardo lino Goal(s) Aerobic- moderate intensity activity [...] Healthy Dietary Education Date: 08/03/18 -Referral to Customs Compliance Director: Date: -DVD: Healthy Eating For Life Date: [...] exercise until stable. Date: Range: -Referral to Equipment Operator Warehouse Date: Education Points listed below- Date Completed: [...] Gael Woo, 09/30/2018 14:43 Patient Name: Bob Sims Suman/: 1955/ ly signed by Randy Figueroa MD at 09/30/2018 2:56 PM PSTdocumented in this encounter Plan of [...] | | | | | [place] [address] | | | | | | [phone] | | | | | | | [...] [place] | | | | | | [address] | | | | | | | | +--------+ + + + + documented as of this encounter Visit Diagnoses + + | Diagnosis | + + | Coronary artery disease, angina presence unspecified, unspecified vessel or lesion | | type, unspecified whether [place] or transplanted heart - Primary | + + | Post PTCA Postsurgical percutaneous transluminal coronary angioplasty status | + + documented in this encounter
--- OUTSIDE RECORDS SUMMARY | ~2020-03-04 | XMS | Encounter Summary ---
Demographics + + + | Address | [address] | | | [place] [address] | + + + | Home Phone [...] [place] | | | | | [address] | | + + + + + Care Team Providers + +------+ + | Care Obstetric Anaesthetist Name | Role | Phone | + [...] [place] | | | | | | [address] | | | | | | [phone] | | | +--------+ + + + [...] | | | | | [address] [facility] | | | | | | [address] [place] | | | | | | [address] | | | | | | | | +--------+ + + + + | 04/16/ | Office | Cardiology | Alin Anderson | | 2019 | Visit | | MD Cheryl Arreguin | | | | | | [address] | | | | | | [place] [address] | | | | | | [phone] | | | | | | | | +--------+ + + + + | 04/16/ | Procedure | Cardiology | | | | 2019 | visit | | | | +--------+ + + + + | 04/25/ | Office | Cardiology | Roico Pearl, | | | 2019 | Visit | | MD Cheryl URENA | | | | | | [place] | | | | | | [address] | | | | | | | | +--------+ + + + + documented as of this encounter Visit Diagnoses Not on filedocumented in this encounter"
--- OUTSIDE RECORDS SUMMARY | ~2020-03-04 | XMS | Encounter Summary ---
Demographics + + + | Address | [address] | | | [place] [address] | + + + | Home Phone [...] [place] | | | | | [address] | | + + + + + Care Team Providers + +------+ + | Care Information Manager Name | Role | Phone | [...] | Coronary | Jenny, | [address] | | | | | artery | JERICHO SantoP | [place], | | | | | disease | [address] | [place] | | | | | involving | [address] | [address] | | | | | resighini | [place], | Phone: | | | | | coronary | [place] | [phone] | | | | | artery of | [address] | Fax: | | | | | resighini heart | Phone: | [phone] | | | | | without | [phone] | | | | | | angina | Fax: | | | | | | pectoris | [phone] | | | | | | Acute | | | | | | | anterior | | | | | | | wall [place] | | | | | | | ([facility]) | | | | | | | [...] | | | | | Coronary | [place], | [address] | | | | | artery | Hansa, BOOM CONVEYOR OPERATOR | [place], | | | | | disease | [address] | [place] | | | | | involving | [address] | [address] | | | | | resighini | [place], | Phone: | | | | | coronary | [place] | [phone] | | | | | artery of | [address] | Fax: | | | | | resighini heart | Phone: | [phone] | | | | | without | [phone] | | | | | | angina | Fax: | | | | | | pectoris | [phone] | | | | | | Acute | | | | | | | anterior | | | | | | | wall [place] | | | | | [...] | +--------+ + + + + | 04/18/ | Hospital | [facility] | Jenny, | Coronary artery | | 2019 | Encounter | MED [facility] ECHO [address] | [place], BOOM CONVEYOR OPERATOR [address] | disease involving | | | | [address] [place] | [place], | resighini coronary | | | | [place] [address] | [place] [address] | artery of resighini | | | | [phone] | [phone] | heart without angina | | | | | | pectoris; Acute | | | | | | anterior wall [place] | | | | | | (HCC) | +--------+ + + + + [...] + + + +---------+ + + | BISACODYL 5 mg EC | Take 5 mg by mouth | | 0 | 03/07/20 | | | tablet | Daily. | | | 19 | | + + + +---------+ + + | Cholecalciferol | Take 50,000 Units by | | 0 | | | | (VITAMIN D-3) [address] | mouth Once a week. | | | | | | units CAPS | | | | | | + + + +---------+ + + | gabapentin | Take 100 mg by mouth | | 0 | 03/03/20 | | | (NEURONTIN) 100 mg | 2 times daily. | | | 19 | | | capsule | | | [...] + + + +---------+ + + | lactulose 10 g/15 | Take 15 mLs by mouth | | 0 | 03/24/20 | | | mL liquid | 2 times daily. | | | 19 | | + + + +---------+ + + | lisinopril | Take 2.5 mg by mouth | | 0 | 01/29/20 | | | (PRINIVIL,ZESTRIL) | Daily. | | | 19 | | | 2.5 MG tablet | | | | | | [...] + + + +---------+ + + | torsemide | Take 60 mg by mouth | | 0 | 02/23/20 | | | (DEMADEX) 20 mg | 2 times daily. | | | 19 | | | tablet | | | | | | + + + +---------+ + + | traMADol (ULTRAM) | Take 150 mg by mouth | | 0 | | | | 50 mg tablet | Twice daily as | | | | | | | needed. | | | | | + + + +---------+ + + | amiodarone | TAKE TWO TABLETS BY | 180 | 3 | 02/02/20 | | | (PACERONE) 200 mg | MOUTH EVERY DAY | tablet | | 19 | 9 | | tablet | | | | | | + + + +---------+ + + | atorvaSTATin | TAKE ONE TABLET BY | 90 | 3 | 12/07/19 | | | (LIPITOR) 80 MG | MOUTH EVERY DAY IN | tablet | | 19 | 0 | | tablet | THE EVENING | | | | | + + + +---------+ + + | clopidogrel | Take 1 tablet by | 30 | 11 | 08/06/20 | | | (PLAVIX) 75 mg | mouth Daily. | tablet | | 18 | 9 | | tablet | | | | | | + + + +---------+ + + | ferrous sulfate | Take 325 mg by mouth | | 0 | | | | 325 mg tablet | Three times a week. | | | | 0 | + + + +---------+ + + | Melatonin 10 MG | Take 10 mg by mouth | | 0 | | | | CAPS | as needed. | | | | 9 | + + + +---------+ + + | metOLazone 2.5 mg | Take 2.5 mg by | | 0 | 01/29/20 | | | tablet | mouth. Taking 2.5 mg | | | 19 | 9 | | | tablet only on | | | | | | | . | | | | | + + + +---------+ + + | metoprolol | Take 1 tablet by | 30 | 11 | 03/24/20 | | | succinate | mouth Daily. | tablet | | 19 | 9 | | (TOPROL-XL) 25 mg 24 | | | | | | | hr tablet | | | | | | + + + +---------+ + + | potassium chloride | Take 20 mEq by mouth | | 0 | 03/03/20 | | | (KLOR-CON) 10 mEq | 2 times daily. | | | 19 | 9 | | CR tablet | | | | | | [...] [place] | | | | | | [id number] | | | | | | | | +--------+ + + + + | 04/16/ | Office | Cardiology | Alin Anderson | | | 2019 | Visit | | MD [address] | | | | | | [address] | | | | | | [place] [address] | | | | | | [phone] | | | | | | | | +--------+ + + + + | 04/16/ | Procedure | Cardiology | | | | 2019 | visit | | | | +--------+ + + + + | 04/25/ Office | Cardiology | Rocio Pearl, | | | 2019 | Visit | | MD Cheryl URENA | | | | | | [place], [place] | | | | | | [address] | | | | | | | | +--------+ + + + + documented as of this encounter Procedures + +--------+ + + + | Procedure Name | Priori | Date/Time | Associated Diagnosis | Comments | | | ty | | | | + +--------+ + + + | ECHO COMPLETE | Routin | 04/18/2019 | Coronary artery | Results for this | | | e | 10:37 AM | disease involving | procedure are in the | | | | PDT | resighini coronary | results section. | | | | | artery of resighini | | | | | | heart without angina | | | | | | pectoris Acute | | | | | | anterior wall [place] | | | | | | ([facility]) | | + +--------+ + + + documented in this encounter Results ECHO Complete (04/18/2019 10:37 [...] | | | | | | n Garrett | | | | | + +---------+ [...] + + | Coronary artery disease involving resighini coronary artery of resighini heart without | | angina pectoris | + + | Acute anterior wall RI (HCC) Acute myocardial infarction of other anterior wall, | | episode of care unspecified | + + documented in this encounter"
--- OUTSIDE RECORDS SUMMARY | ~2020-03-04 | XMS | Encounter Summary ---
Demographics + + + | Address | [address] | | | [place] [address] | + + + | Home Phone [...] [place], [place] | | | | | [address] | | + + + + + Care Team Providers + +------+ + | Care Hardwood Sawyer Name | Role | Phone | [...] [address] | | | | | [place], [place] | [address] [place], [place] | | | | | [address] | [address] | | | | | [phone] | | | +--------+ + + + [...] [place] | | | | | | [address] | | | | | | | | +--------+ + + + + | 04/16/ | Office | Cardiology | Alin Anderson | | | 2019 | Visit | | MD Cheryl Arreguin | | | | | | [address] | | | | | | [place] [address] | | | | | | [phone] | | | | | | | [...] [place] | | | | | | [address] | | | | | | | [...]
--- OUTSIDE RECORDS SUMMARY | ~2020-03-04 | XMS | Encounter Summary ---
Demographics + + + | Address | [address] | | | [place] [address] | + + + | Home Phone | | + + + | Preferred Language | Unknown | + + + | Marital Status | | + + + | Scientologist Affiliation | Unknown | + + + | Race | Unknown | + + + | Ethnic Group | Unknown | + + + Author + + + | Author | [facility] | | | and [place] | + + + | Organization | [facility] | | | and [place] | + + + | Address | Unknown | + + + | Phone | Unavailable | + + + Support + + + + + | Name | Relationship | Address | Phone | + + + + + | [place] | ECON | [place] | | | | | [address] | | + + + + + Care Team Providers + +------+ + | Care Parking Lot Chauffeur Name | Role | Phone | + [...] [address] [place], [place] | failure) ([facility]) | | | | [address] | [address] | (Primary Dx) | | | | [place] [address] | | | | | | [phone] | | | +--------+---------+ + + + [...] | | | | [address] [facility] | | | | | | [address] [place] | | | | | | [address] | | | | | | | | +--------+ + + + + | 04/16/ | Office | Cardiology | Alin Anderson | | | 2019 | Visit | | MD Cheryl Arreguin | | | | | | [address] | | | | | | [place] [address] | | | | | | [phone] | | | | | | | [...] [place] | | | | | | [address] | | | | | | | | +--------+ + + + + documented as of this encounter Visit Diagnoses + + | Diagnosis | + + | Chronic systolic CHF (congestive heart failure) (HCC) - Primary | + + documented in this encounter"
--- OUTSIDE RECORDS SUMMARY | ~2020-03-04 | XMS | Encounter Summary ---
Demographics + + + | Address | [address] | | | [place] [address] | + + + | Home Phone [...] [place], [place] | | | | | [address] | | + + + + + Care Team Providers + +------+ + | Care Bale Sewer Name | Role | Phone | + +------+ + PCP | Unavailable | + +------+ + Encounter Details +--------+ + + + + | Date | Type | Department | Care Team | Description | +--------+ + + + + | 03/24/ | Hospital | [facility] | Gera Biggs, | | | 2010 | Encounter | MED CTR EMERGENCY | MD [address] | | | | | [place] [address] | [place] | | | | | [place] | [address] | | | | | [address] | | | | | | [phone] | | | +--------+ + + + [...] Gera Biggs M.D. Emergency Medicine JOB #: [id number] EXT JOB #:[id number] <Electronicall y Signed by Gera Biggs MD> [...] F | | | | | | [place] [address] | | | | | | [phone] | | | | | | | [...] [place] | | | | | | [address] | | | | | | | | +--------+ + + + + documented as of this encounter Visit Diagnoses Not on filedocumented in this encounter"
--- OUTSIDE RECORDS SUMMARY | ~2020-03-04 | XMS | Encounter Summary ---
Demographics + + + | Address | [address] | | | [place] [address] | + + + | Home Phone [...] [place] | | | | | [address] | | + + + + + Care Team Providers + +------+ + | Care Occupational Therapy Assistant Name | Role | Phone | [...] | | | heart | [place], | [place] | | | | | failure | [place] [address] | [place] | | | | | (HCC) | Phone: | [address] | | | | | I50.22 | [phone] | Phone: | | | | | Procedures | Fax: | [phone] | | | | | Cardiac | [phone] | Fax: | | | | | Rehab | | [phone] | +--------+--------+ + + + + Encounter Details +--------+---------+ + + + | Date | Type | Department | Care Team | Description | +--------+---------+ + + + | 07/19/ | Office | [facility] | Amy Olivares V, | Chronic systolic CHF | | 2019 | Visit | MED CTR CARDIAC | MD [address] | (congestive heart | | | | REHABILITATION [address] [place], [place] | failure) ([facility]) | | | | [address] | [id number] | | | | | [place] [address] | | | | | | [phone] | | | +--------+---------+ + + + [...] encounter Progress Notes Kathy Garcia, BARRON - 07/19/2019 12:00 PM PSTFormatting of this note might be different f rom the original. [facility] CARDIAC REHABILITATION [address] [place] [address] Cardiac Rehab Date: 07/19/2019 Patient Information Patient Name: Bob Will Date of : 1955 Age: 63 y.o. Encounter Diagnoses Code Name Primary? I50.22 Chronic systolic CHF (congestive heart failure) ([facility]) Number of Visits Approved: 34 kx Taken Medications Today? Yes Any Changes in Medications? No Any Problems to Report? No No complaints with exertion. Ventricular paced rhythm without ectopy. Pre O2: 99%, Durin%, SBP prior to exercise 90 /68; during exercise 98/58. Compliant with medications and therapeutic lifestyle changes. Continue monitored exercise. Patient complained today of leg pain, level 7. He was still ab le to maintain his Exercise routine, but not as intense. Any abnormal vital signs or rhythm strips will be reported in progress note. Electronically signed by: Kathy Garcia RRT, 07/19/2019 3:40 PM Patient Name: Bob Will/: 1955/ ly signed by Kathy Garcia RRT at 07/19/2019 3:43 PM PSTdocumented in this encounter Plan of [...] [place] | | | | | | [address] | | | | | | | | +--------+ + + + + | 04/16/ | Office | Cardiology | Alin Anderson | | | 2019 | Visit | | MD Cheryl Arreguin | | | | | | [address] | | | | | | [place] [address] | | | | | | [phone] | | | | | | | [...] [place] | | | | | | [address] | | | | | | | | +--------+ + + + + documented as of this encounter Visit Diagnoses + + | Diagnosis | + + | Chronic systolic CHF (congestive heart failure) (HCC) | + + documented in this encounter"
--- OUTSIDE RECORDS SUMMARY | ~2020-03-04 | XMS | Encounter Summary ---
Demographics + + + | Address | [address] | | | [place] [address] | + + + | Home Phone [...] [place] | | | | | [address] | | + + + + + Care Team Providers + +------+ + | Care Tape Stringer Name | Role | Phone | + [...] | | | | | heart | [place], | [place] | | | | | failure | [place] [address] | [place], [place] | | | | | (HCC) | Phone: | [address] | | | | | I50.22 | [phone] | Phone: | | | | | Procedures | Fax: | [phone] | | | | | Cardiac | [phone] | Fax: | | | | | Rehab | | [phone] | +--------+--------+ + + + + Encounter [...] [place] | failure) ([facility]) | | | | [address] | [address] | (Primary Dx) | | | | [place] [address] | | | | | | [phone] | | | +--------+---------+ + + + [...] of this encounter Progress Notes Lorelei Cruz, REFRIGERATION PLANT CORK INSULATOR - 06/14/2019 12:00 PM PDTFormatting of this note might be different fr om the original. [facility] CARDIAC REHABILITATION [address] [facility] [address] Cardiac Rehab Date: 06/14/2019 Patient Information Patient [...] | 03/12/ | Office | Nephrology | [facility], | | | 2019 | Visit | | ADARSH [address] | | | | | | [facility] | | | | | | [address] [place] | | | | | | [address] | | | | | | | | +--------+ + + + + | 04/16/ | Office | Cardiology | Alin Anderson | | | 2019 | Visit | | MD Cheryl Arreguin | | | | | | [address] | | | | | | [place] [address] | | | | | | [phone] | | | | | | | [...] [place] | | | | | | [address] | | | | | | | | +--------+ + + + + documented as of this encounter Visit Diagnoses + + | Diagnosis | + + | Chronic systolic CHF (congestive heart failure) (HCC) - Primary | + + documented in this encounter"
--- OUTSIDE RECORDS SUMMARY | ~2020-03-04 | XMS | Encounter Summary ---
Demographics + + + | Address | [address] | | | [place] [address] | + + + | Home Phone [...] [place], [place] | | | | | [address] | | + + + + + Care Team Providers + +------+ + | Care Associate Curator Name | Role | Phone | [...] [address] | | | | | [place], | [place], | | | | | [place] [address] | [place] [address] | | | | | [phone] | [phone] | | | | | | | [...] [place] | | | | | | [address] | | | | | | | | +--------+ + + + + | 04/16/ | Office | Cardiology | Alin Anderson | | | 2019 | Visit | | MD Cheryl Arreguin | | | | | | [address] | | | | | | [place] [address] | | | | | | [phone] | | | | | | | [...] [place] | | | | | | [address] | | | | | | | [...]
--- OUTSIDE RECORDS SUMMARY | ~2020-03-04 | XMS | Encounter Summary ---
Demographics + + + | Address | [address] | | | [place] [address] | + + + | Home Phone [...] [place], [place] | | | | | [address] | | + + + + + Care Team Providers + +------+ + | Care Kiln Firer Helper Name | Role | Phone | [...] 2017 | | CARDIOLOGY [address] | AADRSH [address]anto [address] | | | | | [place], | [place], | | | | | [place] [address] | [place] [address] | | | | | [phone] | [phone] | | | | | | | [...] [place] | | | | | | [address] | | | | | | | | +--------+ + + + + | 04/16/ | Office | Cardiology | Alin Anderson | | | 2019 | Visit | | MD [address] | | | | | | [address] | | | | | | [place] [address] | | | | | | [phone] | | | | | | | [...] [place] | | | | | | [address] | | | | | | | | +--------+ + + + + documented as of this encounter Visit Diagnoses Not on filedocumented in this encounter"
--- OUTSIDE RECORDS SUMMARY | ~2020-03-04 | XMS | Encounter Summary ---
Demographics + + + | Address | [address] | | | [place] [address] | + + + | Home Phone [...] [place], [place] | | | | | [address] | | + + + + + Care Team Providers + +------+ + | Care Itinerant Teacher Assistant Name | Role | Phone | [...] Provider Unknown | | | | | [place], [place] | [phone] | | | | | [address] | (Fax) | | | | | [phone] | | | +--------+ + + + [...] [place] | | | | | | [address] | | | | | | | | +--------+ + + + + | 04/16/ | Office | Cardiology | Alin Anderson | | | 2019 | Visit | | MD Cheryl Arreguin | | | | | | [address] | | | | | | [place] [address] | | | | | | [phone] | | | | | | | [...] [place] | | | | | | [address] | | | | | | | | +--------+ + + + + documented as of this encounter Procedures + +--------+ + + + | Procedure Name | Priori | Date/Time | Associated Diagnosis | Comments | | | ty | | | | + +--------+ + + + | ECHO COMPLETE | Routin | 06/04/2017 | | Results for this | | | e | 3:59 AM | | procedure are in the | | | | PDT | | results section. | + +--------+ + + + documented in this encounter Results ECHO Complete (06/04/2017 3:59 AM PDT) + + | Specimen [...]
--- OUTSIDE RECORDS SUMMARY | ~2020-03-04 | XMS | Encounter Summary ---
Demographics + + + | Address | [address] | | | [place] [address] | + + + | Home Phone [...] [place] | | | | | [address] | | + + + + + Care Team Providers + +------+ + | Care Relay Motorman Name | Role | Phone | + [...] | | | | | hy | [address] | [address] | | | | | Procedures | [place], | [place] | | | | | [place] | [place] [address] | [place], [place] | | | | | OUTPATIENT | Phone: | [address] | | | | | CARDIAC | [phone] | Phone: | | | | | REHAB W/O | Fax: | [phone] | | | | | CONT ECG | [phone] | Fax: | | | | | MONITOR | | [phone] | +--------+ + + + + + Encounter Details +--------+ + + + + | Date | Type | Department | Care Team | Description | +--------+ + + + + | 10/19/ | Orders Only | [facility] [place] | Randy Figueroa, | Ischemic | | 2018 | | CARDIOLOGY [address] | MD [address] | cardiomyopathy | | | | [place], | [place], | (Primary Dx) | | | | [place] [address] | [place] [address] | | | | | [phone] | [phone] | | | | | | | [...] | | | | | | [address] [place] | | | | | | [address] [place] | | | | | | [address] | | | | | | | | +--------+ + + + + | 04/16/ | Office | Cardiology | Alin Anderson | | | 2019 | Visit | | MD Cheryl Arreguin | | | | | | [address] | | | | | | [place] [address] | | | | | | [phone] | | | | | | | [...] [place] | | | | | | [address] | | | | | | | [...] Referral | e | cardiomyopathy | starting 10/19/2017 | | | | | | until 10/19/2018 | + + +--------+ + + documented as of this encounter Visit Diagnoses + + | Diagnosis | + + | Ischemic cardiomyopathy - Primary Other specified forms of chronic ischemic heart | | disease | + + documented in this encounter"
--- OUTSIDE RECORDS SUMMARY | ~2020-03-04 | XMS | Encounter Summary ---
Demographics + + + | Address | [address] | | | [place] [address] | + + + | Home Phone [...] [place] | | | | | [address] | | + + + + + Care Team Providers + +------+ + | Care Glass Forming Engineer Name | Role | Phone | [...] | systolic CHF | [address] | [place], [place] | | | | | (congestive | [place], [place] | [address] Phone: | | | | | heart | [address] | [phone] | | | | | failure) | [...] | | | | | systolic | [place], | [facility] [place] | | | | | (congestive) | [place] [address] | [address] Phone: | | | | | heart | Phone: | [phone] | | | | | failure | [phone] | Fax: | | | | | (HCC) | Fax: | [phone] | | | | | Chronic | [phone] | | | | | | systolic [...] + + | 06/22/ | Office | [facility] | [place], [place], | Ischemic | | 2019 | Visit | CARDIOLOGY [place] | [address] | cardiomyopathy | | | | [address] | [place], [place] | (Primary Dx); | | | | [address] | [phone] | Chronic systolic CHF | | | | [place] | | (congestive heart | | | | [address] | | failure) (HCC); | | | | [phone] | | Chronic kidney | | | | | | disease, stage IV | | | | | | (severe) (HCC); | | | | | | ORACLE ENGINEER-D (AICD) | | | | | | [...] carlos eduardojeanne gandhi. Used to follow-up with [facility] last time evaluated in March 2019. Patient has a history of anterior myocardial infarction, hospitalized in [facility], March 15, 2017 at that time was [...] function was severely impaired hence he has ORACLE ENGINEER therapy biventricular ICD implanted in Oct. Has been having recurrent in-stent stenosis. States post circumflex system whi ch was done in May 2018 in [facility]. Previously was treated with Sacubitril/Valsartan and metoprolol. [...] mg by mouth Daily. Cholecalciferol (VITAMIN D-3) 86200 units CAPS Take by mouth Once a [...] 05/13/2018 GLUF 132 (H) 05/12/2018 EC02/13/2019 From [facility] showed atrial sensed and ventricular paced rhythm. 02/08/2019 From [facility] showing atrial flutter with ventricular paced [...] Last US carotid: Medtronic BiV ICD 10/16/2017, [id number] ASSESSMENT: Patient is 63 y.o. with 1. Severe coronary artery disease with recurrent instent restenosis, 2 angioplasties after the initial PCI on March 2017. 2. Severe ischemic cardiomyopathy, NYH class III, class C. 3. Chronic impaired systolic function, due to above. S/P ORACLE ENGINEER therapy. 4. Chronic kidney disease stage IV. [...] toprolol before. Will need to be on oil heaterman clopidogrel and aspirin due to recurrent instent [...] [place] | | | | | | [id number] | | | | | | | | +--------+ + + + + | 04/16/ | Office | Cardiology | Alin Anderson | | | 2019 | Visit | | MD [address] | | | | | | [address] | | | | | | [place] [address] | | | | | | [phone] | | | | | | | | +--------+ + + + + | 04/16/ | Procedure | Cardiology | | | | 2019 | visit | | | | +--------+ + + + + | 04/25/ | Office | Cardiology | Rocio Pearl, | | | 2019 | Visit | | MD Cheryl URENA | | | | | | [place] [facility] [place] | | | | | | [address] | | | | | | | [...] (HCC) | | | | | | ORACLE ENGINEER-D (AICD) | | | | | | [...] Ischemic | Ordered: 06/22/2019 | | to [facility] Cardiac | Referral | e | cardiomyopathy | | | Electrophysiology | | | Chronic systolic CHF | | | [place]GEL[place] | | | (congestive heart | | | | | | failure) (HCC) | | | | | | ORACLE ENGINEER-D (AICD) | | | | | | [...] | | (severe) | + + | ORACLE ENGINEER-D ASHLEE) Medtronic 10/16/17 EULOGIO Darby | + + | Abdominal aortic aneurysm (AAA) without rupture (HCC) | + + documented in this encounter
--- OUTSIDE RECORDS SUMMARY | ~2020-03-04 | XMS | Encounter Summary ---
Demographics + + + | Address | [address] | | | [place] [address] | + + + | Home Phone [...] [place], [place] | | | | | [address] | | + + + + + Care Team Providers + +------+ + | Care Interior Design Teacher Name | Role | Phone | [...] Coronary | MD Lauren | [address] | | | | | artery | [address] | [place], | | | | | disease, | [address] | [place] | | | | | angina | [place], | [address] | | | | | presence | [place] [address] | Phone: | | | | | unspecified, | Phone: | [phone] | | | | | unspecified | [phone] | Fax: | | | | | vessel or | Fax: | [phone] | | | | | lesion type, | [phone] | | | | | | unspecified | | | | | | | whether | | | | | | | [place] or | | | | | | | transplanted | | | | | | | heart | | | | | | | Procedures | | | | | | | ECHO | | | | | | | Complete [place] | | | | | | | ECHO HEART | | | | | | | XTHORACIC,[place] | | | | | | | MPLETE [facility] | | | | | | | DOPPLER [place] | | | | | | [...] + + | 05/07/ | Hospital | [facility] | Lauren Figueroa, | Coronary artery | | 2017 | Encounter | [facility] [address] | disease, angina | | | | [address] [place] | [place], | presence | | | | [place] [address] | [place] [address] | unspecified, | | | | [phone] | [phone] | unspecified vessel | | | | | | or lesion type, | | | | | Chhaya Stuart | unspecified whether | | | | | M, Technologist | [place] or | | | | | | [...] | | | | | [facility] | | | | | | [address] | | | | | | [address] | | | | | | | | +--------+ + + + + | 04/16/ | Office | Cardiology | Alin Anderson | | | 2019 | Visit | | MD Cheryl Arreguin | | | | | | [address] | | | | | | [place] [address] | | | | | | [phone] | | | | | | | [...] [place] | | | | | | [address] | | | | | | | [...] whether | | | | | | [place] or | | | | | | [...] Room Number J Patient Number | Sania [facility] | | [id number] Date of Study 05/07/2017 Visit Number | - IMAGING | | [id number] Referring | | | Physician CAROLINA AGUILAR Number Date of 1955 | | | Youth Coordinator CHRISTEN LILLY, | | | [place] Age | | | 61 year(s) Interpreting | | | CAROLINA AGUILAR | | | Channeling Machine Runner LAUREN FIGUEROA MD Gender | | | Male Nurse | | | Stress Manager Of Information Procedure Type of Study TTE procedure: | [...] Volume: 51.69 ml | | | EF Pkprungii41% Left | | | Ventricle Diastolic Dimension: [...] Volume: 51.69 ml | | | EF Wafxnhjmq22% | | | | | | Left [...] Room Number J Patient | | Number [id number] Date of Study 05/07/2017 Visit Number [id number] | | Referring Physician CAROLINA AGUILAR Number Date of | | 1955 Youth Coordinator CHRISTEN LILLY, | | [place] Age 61 year(s) Interpreting | | CAROLINA AGUILAR Channeling Machine Runner LAUREN | | MD CAROLINA Gender Male [...] LA Volume: 51.69 ml | | EF Ljvwahqfy13% Left Ventricle Diastolic Dimension: 4.6 cm | [...] LA Volume: 51.69 ml | | EF Uiwwqmiwe97% | | | | Left Ventricle | [...] [address] | [place] | [phone] | | [facility] | | [address] | | | - IMAGING | | | | + + + + + documented in this encounter Visit Diagnoses + + | Diagnosis | + + | Coronary artery disease, angina presence unspecified, unspecified vessel or lesion | | type, unspecified whether [place] or transplanted heart | + + documented in this encounter"
--- OUTSIDE RECORDS SUMMARY | ~2020-03-04 | XMS | Encounter Summary ---
Demographics + + + | Address | [address] | | | [place] [address] | + + + | Home Phone [...] [place] | | | | | [address] | | + + + + + Care Team Providers + +------+ + | Care Lead C Developer Name | Role | Phone | [...] | | | heart | [place], | [place] | | | | | failure | [place] [address] | [address] | | | | | (HCC) | Phone: | [address] | | | | | I50.22 | [phone] | Phone: | | | | | Procedures | Fax: | [phone] | | | | | Cardiac | [phone] | Fax: | | | | | Rehab | | [phone] | +--------+--------+ + + + + Encounter [...] | failure) ([facility]) | | | | [address] | [address] | | | | | [place] [address] | | | | | | [phone] | | | +--------+---------+ + + + [...] [facility] [address] [place] [address] Cardiac Rehab 30 Day Review Date: 06/30/2019 [...] appendage thrombus, recent status post stents to, SUPERVISOR FABRICATION-D placement in [facility] on 10/17/2017. Patient's states that his [...] Healthy Dietary Education Date: 06/02/19 -Referral to Courtesy Driver: Date: -DVD: Healthy Eating For Life [...] exercise until stable. Date: Range: -Referral to Learning Administrator Date: Education Points listed below- Date Completed: [...] [place] | | | | | | [id number] | | | | | | | | +--------+ + + + + | 04/16/ | Office | Cardiology | Alin Anderson | | | 2019 | Visit | | MD [address] | | | | | | [address] | | | | | | [place] [address] | | | | | | [phone] | | | | | | | [...] [place] | | | | | | [address] | | | | | | | | +--------+ + + + + documented as of this encounter Visit Diagnoses + + | Diagnosis | + + | Chronic systolic CHF (congestive heart failure) (HCC) | + + documented in this encounter
--- OUTSIDE RECORDS SUMMARY | ~2020-03-04 | XMS | Encounter Summary ---
Demographics + + + | Address | [address] | | | [place] [address] | + + + | Home Phone [...] [place], [place] | | | | | [address] | | + + + + + Care Team Providers + +------+ + | Care Roller Die Cutting Machine Operator Name | Role | Phone [...] Provider Unknown | | | | | [place], [place] | [phone] | | | | | [address] | (Fax) | | | | | [phone] | | | +--------+ + + + [...] [place] | | | | | | [address] | | | | | | | | +--------+ + + + + | 04/16/ | Office | Cardiology | Alin Anderson | | | 2019 | Visit | | MD Cheryl Arreguin | | | | | | [address] | | | | | | [place] [address] | | | | | | [phone] | | | | | | | [...] [place] | | | | | | [address] | | | | | | | [...]
--- OUTSIDE RECORDS SUMMARY | ~2020-03-04 | XMS | Encounter Summary ---
Demographics + + + | Address | [address] | | | [place] [address] | + + + | Home Phone [...] [place], [place] | | | | | [address] | | + + + + + Care Team Providers + +------+ + | Care Database Tester Name | Role | Phone | + +------+ + PCP | Unavailable | + +------+ + Encounter Details +--------+ + + + + | Date | Type | Department | Care Team | Description | +--------+ + + + + | 05/01/ | Hospital | [facility] | Sheron Sherman MD | Acute pulmonary | | 2018 - | Encounter | [facility] | [address] | edema ([facility]); Chest | | | | CARE FLOOR [address] | [place] [address] | pain, unspecified | | 05/13/ | | [address] | [phone] | type; NSTEMI (non-ST | | 2018 | | [place], [place] | | elevated myocardial | | | | [address] | | infarction) ([facility]); | | | | [phone] | | Diagnosis unknown | +--------+ + [...] Summaries by Macho Carbajal DO at 05/13/18 0146 Author: Macho Carbajal DO Service: Hospitalist Author Type: Physician Filed: 05/13/18 1404 Date of Service: 05/13/18 1158 Status: Signed Corporate Claims Examiner: Macho Carbajal DO (Physician) [facility]: Hospitalist Discharge Summary Date of Admission: 05/01/2018 Date of Discharge: 05/13/2018 Discharge Physician: Macho Carbajal DO Treatment Team: Consulting Physician: Deisy Hansen MD Consulting Physician: Mairo Alberto Brito MD Consulting Physician: Isael Thakkar [...] coronary artery disease and was transferred from [place] to [facility] when he w as found to have STEMI in 03/2017 with thrombosed left main artery treated with PCI of the l eft main into the LAD and subsequent PCI of left circumflex. His hospital course [facility] that [facility] was complicated by acute cardiogenic shock status post ECMO. Left atrial clot, previousl y on coumadin. He was again admitted at [facility] in 10/2017 when he was admitted for [...] o go to the emergency department in [place]. He has chronic neck pain but this [...] nose, or nasal congestion. He reports darshan reeys has been drinking about 2 cans of [...] patient follows up with Dr. Figueroa at [place]. The patient was transferred from [place] to the main [facility] emergency department. I do n ot have the records from [facility]; however, while he was at [facility] his vitals were stable. Labs showed a troponin of 0.613 with EKG showing V paced, creatinine was elevated at 1.8. White count was normal. BNP was elevated at 412. Repeat troponin was 0.678. Ches t x-ray showed left mid lung plate-like atelectasis, otherwise lungs are clear. The patient received DuoNeb and Lasix at [place] with relief of his symptoms and he [...] that the patient be transferred over to [facility] since the technology is not available in thi s facility; on-call cardiology at [facility], he did not see the need for [...] EGFR 38 (L) 05/13/2018 PLAN Transfer to [facility]. Disposition: Home Condition: Stable Code Status: Full Code No discharge procedures on file. Follow up: Chato Matson MD [address] [place] [id number] Medication List START taking these medications amiodarone [...] 0 | | | | (VITAMIN D-3) [address] | mouth Once a week. | | [...] Date of Service: 05/13/18 1352 Status: Signed Corporate Claims Examiner: Heidi Berkowitz RN (Registered Nurse) 1350 Patient transported to [place] via AMS, transport chart with patient, all [...] Date of Service: 05/13/18 1214 Status: Signed Corporate Claims Examiner: Heidi Berkowitz RN (Registered Nurse) 1214 Report called to ALFONSO Mckeon at [facility]. Heidi Berkowitz RN yson Valles Chaplain - 05/13/2018 11:23 AM PDT Progress Notes by Tyson Major at 05/13/18 1123 Author: Tyson Major Service: (none) Author Type: Filed: 05/13/18 1127 Date of Service: 05/13/18 1123 Status: Signed Corporate Claims Examiner: Tyson Major () I visited with ron tanner to LOS. He shared he will be transferring to [facility] in [facility] for heart surgery. Ron states he is ready to have his [...] Date of Service: 05/13/18 1106 Status: Addendum Corporate Claims Examiner: Mabel Bennett RN (Registered Nurse) Related Notes: Original Note by Mabel Bennett RN (Registered Nurse) filed at 05/13/18 110 6 Pt will be transferred to [facility]. Carlee onver neema Transaction, Provider Unknown - 05/12/2018 8:44 PM PDT Nurse Progress Note by Monique Monreal RN at 05/12/182043 Author: Monique Monreal RN Service: (none) Author Type: Registered Nurse Filed: 05/13/18 0710 Date of Service: 05/12/182043 Status: Addendum Corporate Claims Examiner: Monique Monreal RN (Registered Nurse) Related Notes: [...] 05/12/181835 Date of Service: 05/12/181833 Status: Signed Corporate Claims Examiner: Heather Gonzales RN (Registered Nurse) Patient started [...] 05/12/181818 Date of Service: 05/12/181809 Status: Signed Corporate Claims Examiner: Myra Triplett MD (Physician) PCP : Chato [...] pain, cough. He is awaiting transfer to [facility]. ROS: As in History of Present [...] was completed later after rounds. Dictation software, Biocontrol, was used which may contain error for similar sounding words pantera n after review. Personal communication is requested for any clarification. 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 All questions addressed. HEATHER GONZALES RN onver neema Transaction, Provider Unknown - 05/12/2018 3:30 PM PDT Nurse Progress Note by Heidi Berkowitz RN at 05/12/18 1530 Author: Heidi Berkowitz RN Service: (none) Author Type: Registered Nurse Filed: 05/12/18 1531 Date of Service: 05/12/18 1530 Status: Signed Corporate Claims Examiner: Heidi Berkowitz RN (Registered Nurse) 1500 Patient tolerating RA a this time, lungs are CTA and patient is managing his fluid int aman. May occasionally needs 2L Oxymask when asleep. Heidi Berkowitz RN Macho Horowitz MD - 05/12/2018 12:33 PM PDTFormatting of this note might be different from the origin al. Progress Notes by Macho Carbajal DO at 05/12/18 1233 Author: Macho Carbajal DO Service: Hospitalist Author Type: Physician Filed: 05/12/18 1238 Date of Service: 05/12/18 1233 Status: Signed Corporate Claims Examiner: Macho Carbajal DO (Physician) [facility]: Hospitalist Progress Note Pt: Ron Mckeon AGE/SEX: 62 y.o. male ROOM: [facility] PCP: Chato Matson : 1955 TODAY'S DATE: 05/12/2018 Hospital Day: LOS: 11 days Post-Op Day: * No surgery date entered * SUBJECTIVE Patient Summary: Per last hospitalist note: 62-year-old male with history of hyperlip idemia, COPD, previous smoker, chronic systolic congestive heart failure, ischemic cardiomyo ginny EF of 30 percent status post defibrillator, coronary artery disease ST elevation AK in 03/2017 status post stent left main to LAD and left circumflex, left atrial clot previously on Coumadin, recent admission in another institution on 10/2007 for pneumonia and transferred to [facility] for unstable angina status post ANY who presented with sudden onset of shortness of breath at [facility]. She was subsequently transferred to [facility] for further evalua tion and management. Initial troponin came back marginally high at 0.613. BNP is also high a t 412. His troponin trended up. He was initially treated with Lasix and DuoNeb at [place] with improvement of symptoms. Cardiology, Dr. Hansen was consulted. Echocardiogram was done which showed an EF of 25-30 percent. [place] is akinetic. Stress test was done revealing [...] Active Problems: COPD (chronic obstructive pulmonary disease) ([facility]) Hyperlipidemia Dyspnea Chronic systolic CHF (congestive heart failure) ([facility]) Acute renal failure superimposed on stage 3 chronic kidney disease ([facility]) ASSESSMENT & PLAN Coronary artery disease - [...] that the patient be transferred over to [facility] since the technology is not available in [facility] s facility; on-call cardiology at [facility], he did not see the need for inpatient toinpatient transfer at this time. Patient can follow-up as an outpatient and maybe do elective CABG if needed. - Apparently, in 10/2017 and the patient had stenting of the in-stent restenosis of the LAD, there was a viability study with unfavorable result. CABG was not an option during that brenad e. - Repeat viability studydone revealed hibernating myocardium suspected in the right coron maciej territory involving the inferior wall in the inferior portion of the septal wall. Awaiti ng further recommendations from both cardiothoracic surgery and cardiology. - Off Plavix - On heparin drip - Episodic V. tach now improved with amiodarone thought to be secondary to ischemia - Await transfer to [facility] when bed available per Dr. Hansen Acute [...] Disposition: Continue heparin drip, awaiting bed at [facility] for transfer Code Status: Full Code Macho Carbajal DO 05/12/2018 12:33 PM onversion Transaction, Yuki ashley Unknown - 05/12/2018 7:53 AM PDT Nurse Progress Note by Kathryn Adler RN at 05/12/18752 Author: Kathryn Adler RN Service: (none) Author Type: Registered Nurse Filed: 05/12/18752 Date of Service: 05/12/18752 Status: Signed Corporate Claims Examiner: Kathryn Adler RN (Registered Nurse) Chart review complete. KATHRYN ADLER RN onver neema Transaction, Provider Unknown - 05/12/2018 7:00 AM PDT Nurse Progress Note by Kathryn Adler RN at 05/12/18699 Author: Kathryn Adler RN Service: (none) Author Type: Registered Nurse Filed: 05/12/18752 Date of Service: 05/12/18699 Status: Signed Corporate Claims Examiner: Kathryn Adler RN (Registered Nurse) 5-RAT called. [...] 6:13 PM PDT Nurse Progress Note by Lidai Hyde RN at 05/11/181812 Author: Lidia Hyde RN Service: Hospitalist Author Type: Registered Nurse Filed: 05/11/181812 Date of Service: 05/11/181812 Status: Signed Corporate Claims Examiner: Lidia Hyde RN (Registered Nurse) Chart check complete for this shift. avage , Deisy Haile MD - 05/11/2018 5:35 PM PDT Progress Notes by Deisy Hansen MD at 05/11/18 1735 Author: Deisy Hansen MD Service: (none) Author Type: Physician Filed: 05/11/18 1737 Date of Service: 05/11/18 173 Status: Signed Corporate Claims Examiner: Deisy Hansen MD (Physician) Spoke with Dr Galileo Sky, site physician at [facility]. They will accept in transfer. They antici kuhn having beds tomorrow. They will call. onversion Transaction, Provider Unknown - 05/11/2018 12:48 PM PDTFormatting of this note might be dif ferent from the original. Case Management by Mabel Bennett RN at 05/11/18 1248 Author: Mabel Bennett RN Service: (none) Author Type: Registered Nurse Filed: 05/11/18 1249 Date of Service: 05/11/18 1248 Status: Signed Corporate Claims Examiner: Mabel Bennett RN (Registered Nurse) Still pending for [facility] to make a decision on CABG. Will continue to follow Carlee onver neema Transaction, Provider Unknown - 05/11/2018 11:42 AM PDT Nurse Progress Note by Lidia Hyde RN at 05/11/18 1142 Author: Lidia Hyde RN Service: Hospitalist Author Type: Registered Nurse Filed: 05/11/18 1144 Date of Service: 05/11/18 1142 Status: Signed Corporate Claims Examiner: Lidia Hyde RN (Registered Nurse) Second therapeutic aPTT. Next aPTT is tomorrow am per Heparin protocol. acho Carbajal MD - 05/11/2018 11:06 AM PDTFormatting of this note might be different from the origin al. Progress Notes by Macho Carbajal DO at 05/11/18 1106 Author: Macho Carbajal DO Service: Hospitalist Author Type: Physician Filed: 05/11/181117 Date of Service: 05/11/181105 Status: Signed Corporate Claims Examiner: Macho Carbajal DO (Physician) [facility]: Hospitalist Progress Note Pt: Ron Mckeon AGE/SEX: 62 y.o. male ROOM: [address] [place] [address] PCP: Chato Matson : 1955 TODAY'S DATE: 05/11/2018 Hospital Day: LOS: 10 days Post-Op Day: * No surgery date entered * SUBJECTIVE Patient Summary: Per last hospitalist note: 62-year-old male with history of hyperlip idemia, COPD, previous smoker, chronic systolic congestive heart failure, ischemic cardiomyo ginny EF of 30 percent status post defibrillator, coronary artery disease ST elevation AK in 03/2017 status post stent left main to LAD and left circumflex, left atrial clot previously on Coumadin, recent admission in another institution on 10/2007 for pneumonia and transferred to [facility] for unstable angina status post ANY who presented with sudden onset of shortness of breath at [facility]. She was subsequently transferred to [facility] for further evalua tion and management. Initial troponin came back marginally high at 0.613. BNP is also high a t 412. His troponin trended up. He was initially treated with Lasix and DuoNeb at [place] with improvement of symptoms. Cardiology, Dr. Hansen was consulted. Echocardiogram was done which showed an EF of 25-30 percent. [place] is akinetic. Stress test was done revealing [...] Active Problems: COPD (chronic obstructive pulmonary disease) ([facility]) Hyperlipidemia Dyspnea Chronic systolic CHF (congestive heart failure) ([facility]) Acute renal failure superimposed on stage 3 chronic kidney disease ([facility]) ASSESSMENT & PLAN CAD (coronary artery disease) [...] that the patient be transferred over to [facility] since the technology is not available in [facility] s facility; on-call cardiology at [facility], he did not see the need for inpatient to inpatient t [facility] at this time. Patient can follow-up as [...] from Cardiology and CTS about transfer to [facility] Acute congestive heart failure - Resolved - [...] Hansen MD at 05/11/18 0849 Author: Deisy Hanesn MD Service: (none) Author Type: Physician Filed: 05/11/18 0853 Date of Service: 05/11/1849 Status: Signed Corporate Claims Examiner: Deisy Hansen MD (Physician) [facility]: Cardiology Progress Note Hospital Day: LOS: [...] 05/11/18535 Date of Service: 05/11/18535 Status: Signed Corporate Claims Examiner: Kathryn Adler RN (Registered Nurse) End of shift chart review complete. KATHRYN ADLER RN onver neema Transaction, Provider Unknown - 05/10/2018 6:58 PM PDT Nurse Progress Note by Lamar Schilling RN at 05/10/181857 Author: Lamar Schilling RN Service: (none) Author Type: Registered Nurse Filed: 05/10/181858 Date of Service: 05/10/181857 Status: Signed Corporate Claims Examiner: Lamar Schilling RN (Registered Nurse) No remarkable [...] 1626 Date of Service: 05/10/181027 Status: Signed Corporate Claims Examiner: Tammy Gorman MD (Physician) [facility]: Hospitalist Progress Note Hospital Day: LOS: 9 days SUBJECTIVE Patient Summary: 62-year-old male with history of hyperlipidemia, COPD, previous smok er, chronic systolic congestive heart failure, ischemic cardiomyopathy EF of 30 percent stat us post defibrillator, coronary artery disease ST elevation AK in 03/2017 status post stent l eft main to LAD and left circumflex, left atrial clot previously on Coumadin, recent admissi on in another institution on 10/2007 for pneumonia and transferred to [facility] for unstable angin a status post ANY who [facility] to [facility] for further evaluation and management. Initia l troponin came back marginally high at 0.613. BNP is also high at 412. His troponin trended up. He was initially treated with Lasix and DuoNeb at [place] with improvement of symptom s. Cardiology, Dr. Hansen was consulted. Echocardiogram was done which showed an EF of 25-30 percent. [place] is akinetic. Stress test was done revealing [...] 18%. Risk stratificatio n according to the [place] [employer] Association and [place] [employer] Scientific Statement. Circulation (2008); [...] Active Problems: COPD (chronic obstructive pulmonary disease) ([facility]) Benign essential hypertension Hyperlipidemia Dyspnea Acute on chronic systolic congestive heart failure (HCC) Acute renal failure superimposed on stage 3 chronic kidney disease ([facility]) ASSESSMENT & PLAN CAD (coronary artery disease), in-stent restenosis distal left main, left anterior descen ding and left circumflex -Noted restenosis of the stents done one year prior. -Appreciate input from cardiology. -Appreciate input from cardiothoracic surgery. Discussed with Dr. Garcia, because the gela ent had cardiogenic shock that required ECMO in 2016, it was recommended that the patient be transferred over to [facility] since the technology is not available in this facility. Discussed with on-call cardiology at [facility], he did not see the need for [...] Inpatient. Code Status: Full Code Dictation and lollypop machine operator or software, Biocontrol, used which may contain error for similar [...] (none) Author Type: Registered Nurse Filed: 05/09/18 2859 Date of Service: 05/09/181640 Status: Signed Corporate Claims Examiner: Marianne Judge RN (Registered Nurse) Pt ambulating [...] Service: Nephrology Author Type: Physician Filed: 05/09/18 1620 Date of Service: 05/09/18 1613 Status: Signed Corporate Claims Examiner: Myra Triplett MD (Physician) PCP : Chato Matson LOS: 8 days Ron cMkeon is a 62 y.o. man followed for [...] was completed later after rounds. Dictation software, Biocontrol, was used which may contain error for similar sounding words pantera n after review. Personal communication is requested for any clarification. 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 amiodarone 400 mg Oral TID aspirin 81 [...] Notes by Tammy Gorman MD at 05/09/18 5491 Author: Tammy Gorman MD Service: Hospitalist Author Type: Physician Filed: 05/09/18 7046 Date of Service: 09/02/18 0727 Status: Signed Corporate Claims Examiner: Tammy Gorman MD (Physician) [facility]: Hospitalist Progress Note Hospital Day: LOS: 8 days SUBJECTIVE Patient Summary: 62-year-old male with history of hyperlipidemia, COPD, previous smok er, chronic systolic congestive heart failure, ischemic cardiomyopathy EF of 30 percent stat us post defibrillator, coronary artery disease ST elevation AK in 03/2017 status post stent l eft main to LAD and left circumflex, left atrial clot previously on Coumadin, recent admissi on in another institution on 10/2007 for pneumonia and transferred to [facility] for unstable angin a status post ANY who presented with sudden onset of shortness of breath at [facility]. She was subsequently transferred to [facility] for further evaluation and management. Initia l troponin came back marginally high at 0.613. BNP is also high at 412. His troponin trended up. He was initially treated with Lasix and DuoNeb at [place] with improvement of symptom s. Cardiology, Dr. Hansen was consulted. Echocardiogram was done which showed an EF of 25-30 percent. [place] is akinetic. Stress test was done revealing [...] 18%. Risk stratificatio n according to the [place] [employer] Association and [place] [employer] Scientific Statement. Circulation (2008); [...] Active Problems: COPD (chronic obstructive pulmonary disease) ([facility]) Benign essential hypertension Hyperlipidemia Dyspnea Acute on chronic systolic congestive heart failure (HCC) Acute renal failure superimposed on stage 3 chronic kidney disease ([facility]) ASSESSMENT & PLAN CAD (coronary artery disease), in-stent restenosis distal left main, left anterior descen ding and left circumflex -Noted restenosis of the stents done one year prior. -Appreciate input from cardiology. -Appreciate input from cardiothoracic surgery. Discussed with Dr. Garcia, because the gela ent had cardiogenic shock that required ECMO in 2017, it was recommended that the patient be transferred over to [facility] since the technology is not available in this facility. Discussed with on-call cardiology at [facility], he did not see the need for [...] now resolved. COPD (chronic obstructive pulmonary disease) ([facility]) -Clinically, does not appear to be in [...] Inpatient. Code Status: Full Code Dictation and lollypop machine operator or software, Biocontrol, used which may contain error for similar [...] Date of Service: 05/08/18 1600 Status: Signed Corporate Claims Examiner: Moniuqe Estrada RN (Registered Nurse) Received report from Nisa HAMILTON. Chart review complete. Monique Estrada RN Tammy Day MD - 05/08/2018 3:13 PM PDT Progress Notes by Tammy Gorman MD at 05/08/18 1513 Author: Tammy Gorman MD Service: Hospitalist Author Type: Physician Filed: 05/08/18 1528 Date of Service: 05/08/18 1513 Status: Signed Corporate Claims Examiner: Tammy Gorman MD (Physician) [facility]: Hospitalist Progress Note Hospital Day: LOS: 7 days SUBJECTIVE Patient Summary: 62-year-old male with history of hyperlipidemia, COPD, previous smok er, chronic systolic congestive heart failure, ischemic cardiomyopathy EF of 30 percent stat us post defibrillator, coronary artery disease ST elevation AK in 03/2017 status post stent l eft main to LAD and left circumflex, left atrial clot previously on Coumadin, recent admissi on in another institution on 10/2007 for pneumonia and transferred to [facility] for unstable angin a status post ANY who presented with sudden onset of shortness of breath at [facility]. She was subsequently transferred to [facility] for further evaluation and management. Initia l troponin came back marginally high at 0.613. BNP is also high at 412. His troponin trended up. He was initially treated with Lasix and DuoNeb at [place] with improvement of symptom s. Cardiology, Dr. Hansen was consulted. Echocardiogram was done which showed an EF of 25-30 percent. [place] is akinetic. Stress test was done revealing [...] 18%. Risk stratificatio n according to the [place] [employer] and [place] [employer] Scientific Statement. Circulation (2008); [...] that the patient be transferred over to [facility] since the technology is not available in this facility. Discussed with on-call cardiology at [facility], he did not see the need for [...] Inpatient. Code Status: Full Code Dictation and lollypop machine operator or software, Biocontrol, used which may contain error for similar [...] (none) Author Type: Registered Dietitian Filed: 05/08/18 8353 Date of Service: 05/08/18 130 Status: Signed Corporate Claims Examiner: Jamaal Wilcox RD (Registered Dietitian) 05/08/18 1259 Subjective Timepoint Admit (Triggers for LOS. ) [...] 1221 Date of Service: 05/08/181205 Status: Signed Corporate Claims Examiner: Deisy Hansen MD (Physician) Pt feels well today. Reviewed DC summary from [facility] this October. He did have repeat stents [...] 05/08/1831 Date of Service: 05/08/18528 Status: Signed Corporate Claims Examiner: Brianna Kaufman RN (Registered Nurse) Afebrile overnight, one soft BP 92/55, rechecked at 114/74 this AM. NSR with 1st degree blo ck on tele, HR 60-70s. No ectopy. Denies chest pain, SOB, otherwise. Heparin gtt titrated pe r protocol, see eMAR. Medicated x2 with PO [place] for back/neck chronic pain. Tolerating ambu lation [...] 05/07/181751 Date of Service: 05/07/181750 Status: Signed Corporate Claims Examiner: Nisa Kulkarni RN (Registered Nurse) End of shift chart review complete. Tammy Day MD - 05/07/2018 2:50 PM PDT Progress Notes by Tammy Gorman MD at 05/07/181449 Author: Tammy Gorman MD Service: Hospitalist Author Type: Physician Filed: 05/07/18 1456 Date of Service: 05/07/181449 Status: Signed Corporate Claims Examiner: Tammy Gorman MD (Physician) [facility]: Hospitalist Progress Note Hospital Day: LOS: 6 days SUBJECTIVE Patient Summary: 62-year-old male with history of hyperlipidemia, COPD, previous smok er, chronic systolic congestive heart failure, ischemic cardiomyopathy EF of 30 percent stat us post defibrillator, coronary artery disease ST elevation AK in 03/2017 status post stent l eft main to LAD and left circumflex, left atrial clot previously on Coumadin, recent admissi on in another institution on 10/2007 for pneumonia and transferred to [facility] for unstable angin a status post ANY who presented with sudden onset of shortness of breath at [facility]. She was subsequently transferred to [facility] for further evaluation and management. Initia l troponin came back marginally high at 0.613. BNP is also high at 412. His troponin trended up. He was initially treated with Lasix and DuoNeb at [place] with improvement of symptom s. Cardiology, Dr. Hansen was consulted. Echocardiogram was done which showed an EF of 25-30 percent. [place] is akinetic. Stress test was done revealing [...] 18%. Risk stratificatio n according to the [place] [employer] Association and [place] [employer] Scientific Statement. Circulation (2008); [...] Active Problems: COPD (chronic obstructive pulmonary disease) ([facility]) Benign essential hypertension Hyperlipidemia Dyspnea Acute on chronic systolic congestive heart failure (HCC) Acute renal failure superimposed on stage 3 chronic kidney disease ([facility]) ASSESSMENT & PLAN CAD (coronary artery disease), in-stent restenosis distal left main, left anterior descen ding and left circumflex -Noted restenosis of the stents done one year prior. -Appreciate input from cardiology. -Appreciate input from cardiothoracic surgery. Discussed with Dr. Garcia, because the gela ent had cardiogenic shock that required ECMO in 2017, it was recommended that the patient be transferred over to [facility] since the technology is not available in this facility. Discussed with on-call cardiology at [facility], he did not see the need for [...] Inpatient. 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 He has not been therapeutic. Next aptt draw 1930. Roberta , Deisy Haile MD - 05/07/2018 9:21 AM PDT Progress Notes by Deisy Hansen MD at 05/07/18920 Author: Deisy Hansen MD Service: (none) Author Type: Physician Filed: 05/07/18931 Date of Service: 05/07/18920 Status: Signed Corporate Claims Examiner: Deisy Hansen MD (Physician) Spent a considerable amount of time looking at old films and trying to glean what happened in past. In March of 2017 he had an acute mi with a tight distal LM, atretic LAD and tight ostial LCX . PCI of Lm to lad and lcx was done in [place]. Complicated by LM occlusion, arrest. He was flown to [facility] and was on ECMO at that time due to the preceding event.Details are sketch y as there are no notes on care everywhere (that I can find). In September of this year he had a repeat cath in [place], pt is not sure why, care every where says he was transferred from [facility] with dyspnea and had elevated enzymes. Found In stent restenosis in LCX. Transferred to [facility]. Had no coronary intervention, but did have AI CD. Again notes are not available to me. I spoke with a [facility] from [facility] last night who declined transport as unnecessary and offered t o see him as an outpatient. I think we need to see records from [facility] as to why he was not operated on in October. Woap nolan like DC summary from [facility] both from 03/23 and 10/25. However they [...] 05/06/181847 Date of Service: 05/06/181845 Status: Signed Corporate Claims Examiner: Nisa Kulkarni RN (Registered Nurse) Aptt therapeutic X 1. Next aptt is at 2400. onver neema Transaction, Provider Unknown - 05/06/2018 6:27 PM PDT Nurse Progress Note by Nisa Kulkarni RN at 05/06/181826 Author: Nisa Kulkarni RN Service: (none) Author Type: Registered Nurse Filed: 05/06/181827 Date of Service: 05/06/181826 Status: Signed Corporate Claims Examiner: Nisa Kulkarni RN (Registered Nurse) End of Shift report complete. onver neema Transaction, Provider Unknown - 05/06/2018 11:07 AM PDT Case Management by Analisa August RN at 05/06/181106 Author: Analisa August RN Service: (none) Author Type: Registered Nurse Filed: 05/06/181107 Date of Service: 05/06/181106 Status: Signed Corporate Claims Examiner: Analisa August RN (Registered Nurse) CM attended AM rounds: per nursing, CABG with Dr. Garcia scheduled for 05/11 (pt was on Plav ix). Pt will stay here until surgery. Analisa August Tammy Day MD - 05/06/2018 10:04 AM PDT Progress Notes by Tammy Gorman MD at 05/06/18 1004 Author: Tammy Gorman MD Service: Hospitalist Author Type: Physician Filed: 05/06/18 7457 Date of Service: 05/06/18 1004 Status: Addendum Corporate Claims Examiner: Tammy Gorman MD (Physician) Related Notes: Original Note by Tammy Gorman MD (Physician) filed at 05/06/18 1255 [facility]: Hospitalist Progress Note Hospital Day: LOS: 5 days SUBJECTIVE Patient Summary: 62-year-old male with history of hyperlipidemia, COPD, previous smok er, chronic systolic congestive heart failure, ischemic cardiomyopathy EF of 30 percent stat us post defibrillator, coronary artery disease ST elevation AK in 03/2017 status post stent l eft main to LAD and left circumflex, left atrial clot previously on Coumadin, recent admissi on in another institution on 10/2007 for pneumonia and transferred to [facility] for unstable angin a status post ANY who presented with sudden onset of shortness of breath at [facility]. She was subsequently transferred to [facility] for further evaluation and management. Initia l troponin came back marginally high at 0.613. BNP is also high at 412. His troponin trended up. He was initially treated with Lasix and DuoNeb at [place] with improvement of symptom s. Cardiology, Dr. Hansen was consulted. Echocardiogram was done which showed an EF of 25-30 percent. [place] is akinetic. Stress test was done revealing [...] 18%. Risk stratificatio n according to the [place] [employer] Association and [place] [employer] Scientific Statement. Circulation (2008); [...] Active Problems: COPD (chronic obstructive pulmonary disease) ([facility]) Benign essential hypertension Hyperlipidemia Dyspnea Acute on chronic systolic congestive heart failure (HCC) Acute renal failure superimposed on stage 3 chronic kidney disease ([facility]) ASSESSMENT & PLAN CAD (coronary artery disease), in-stent restenosis distal left main, left anterior descen ding and left circumflex -Noted restenosis of the stents done one year prior. -Appreciate input from cardiology. -Appreciate input from cardiothoracic surgery. Discussed with Dr. Garcia, because the gela ent had CABG that required ECMO in 2017, it was recommended that the patient be transferred over to [facility] since the technology is not available in this facility. We will start facilita ting transfer, contacted [facility] transfer center. -Off Plavix. -Continue heparin drip. -Episodic V. tach now improved with amiodarone thought to be secondary to ischemia. Dyspnea -This could be multifactorial but clinically resolve. -Acute congestive heart failure with mild elevation in BNP might have contributed. Patient responded well to diuresis. -Possible anginal equivalent considering restenosis of the prior stents. -Symptoms now resolved. COPD (chronic obstructive pulmonary disease) ([facility]) -Clinically, does not appear to be in [...] superimposed on stage 3 chronic kidney disease ([facility]) -Creatinine is stable. -There could be a component of cardiorenal syndrome. -Avoid nephrotoxins but will continue entresto and low-dose furosemide and. -Appreciate nephrology input. Type II diabetes -Continue low range Humalog correctional sliding scale. -Hold metformin in the meantime. DVT prophylaxis: In place. GI prophylaxis: In place. Disposition: Inpatient. 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 KATHRYN ADLER RN Mario Alberto Regan MD - 05/05/2018 6:54 PM PDTFormatting of this note might be different from the or iginal. Progress Notes by Mario Alberto Brito MD at 05/05/181853 Author: Mario Alberto Brito MD Service: Nephrology Author Type: Physician Filed: 05/05/18 2411 Date of Service: 05/05/181853 Status: Signed Corporate Claims Examiner: Mario Alberto Brito MD (Physician) Hospital Problem [...] 05/05/181743 Date of Service: 05/05/181742 Status: Signed Corporate Claims Examiner: Nisa Kulkarni RN (Registered Nurse) End of shift review complete. avage , Deisy Haile MD - 05/05/2018 8:52 AM PDT Progress Notes by Deisy Hansen MD at 05/05/18851 Author: Deisy Hansen MD Service: (none) Author Type: Physician Filed: 05/05/1853 Date of Service: 05/05/18851 Status: Signed Corporate Claims Examiner: Deisy Hansen MD (Physician) [facility]: Cardiology Progress Note Hospital Day: LOS: [...] Notes by Tammy Gorman MD at 05/05/18 3271 Author: Tammy Gorman MD Service: Hospitalist Author Type: Physician Filed: 05/05/18 1325 Date of Service: 05/05/1859 Status: Signed Corporate Claims Examiner: Tammy Gorman MD (Physician) [facility]: Hospitalist Progress Note Hospital Day: LOS: 4 days SUBJECTIVE Patient Summary: 62-year-old male with history of hyperlipidemia, COPD, previous smok er, chronic systolic congestive heart failure, ischemic cardiomyopathy EF of 30 percent stat us post defibrillator, coronary artery disease ST elevation AK in 03/2017 status post stent l eft main to LAD and left circumflex, left atrial clot previously on Coumadin, recent admissi on in another institution on 10/2007. for pneumonia and transferred to [facility] for unstable shirley na status post ANY who presented with sudden onset of shortness of breath at [facility]. She was subsequently transferred to [facility] for further evaluation and management. Initi al troponin came back marginally high at 0.613. BNP is also high at 412. His troponin trende d up. He was initially treated with Lasix and DuoNeb at [place] with improvement of sympto ms. Cardiology, Dr. Hansen was consulted. Echocardiogram was done which showed an EF of 25-3 0 percent. [place] is at kinetic. Stress test was done [...] 18%. Risk stratificatio n according to the [place] Heart Association and [place] [employer] Scientific Statement. Circulation (2008); [...] Active Problems: COPD (chronic obstructive pulmonary disease) ([facility]) Benign essential hypertension Hyperlipidemia Dyspnea Acute on chronic systolic congestive heart failure (HCC) Acute renal failure superimposed on stage 3 chronic kidney disease ([facility]) ASSESSMENT & PLAN CAD (coronary artery disease), [...] Inpatient. 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 Next aptt ordered for tomorrow am. No chest pain or SOB during this sh ift. VSS End of shift chart review done. KATHRYN ADLER RN onver neema Transaction, Provider Unknown - 05/04/2018 6:21 PM PDT Nurse Progress Note by Alok Mortensen RN at 05/04/181820 Author: Alok Mortensen RN Service: (none) Author Type: Registered Nurse Filed: 05/04/181821 Date of Service: 05/04/181820 Status: Signed Corporate Claims Examiner: Alok Mortensen RN (Registered Nurse) [place] x3 for pain control. Garcia consulting. No acute events this shift. 12 Hr chart check complete onver neema Transaction, Provider Unknown - 05/04/2018 12:25 PM PDT Case Management by Mabel Bennett RN at 05/04/181224 Author: Mabel Bennett RN Service: (none) Author Type: Registered Nurse Filed: 05/04/186 Date of Service: 05/04/181224 Status: Signed Corporate Claims Examiner: Mabel Bennett RN (Registered Nurse) Met with pt re d/ cplanning. Pt lives with spouse in [place] and has been indep with all his [...] 1512 Date of Service: 05/04/18929 Status: Signed Corporate Claims Examiner: Tammy Gorman MD (Physician) [facility]: Hospitalist Progress Note Hospital Day: LOS: 3 days SUBJECTIVE Patient Summary: 62-year-old male with history of hyperlipidemia, COPD, previous smok er, chronic systolic congestive heart failure, ischemic cardiomyopathy EF of 30 percent stat us post defibrillator, coronary artery disease ST elevation [place] in 03/2017 status post stent l eft main to LAD and left circumflex, left atrial clot previously on Coumadin, recent admissi on in another institution on 10/2007. for pneumonia and transferred to [facility] for unstable shirley na status post ANY who presented with sudden onset of shortness of breath at [facility]. She was subsequently transferred to [facility] for further evaluation and management. Initi al troponin came back marginally high at 0.613. BNP is also high at 412. His troponin trende d up. He was initially treated with Lasix and DuoNeb at [place] with improvement of sympto ms. Cardiology, Dr. Hansen was consulted. Echocardiogram was done which showed an EF of 25-3 0 percent. [place] is at kinetic. Stress test was done [...] 18%. Risk stratificatio n according to the [place] [employer] Association and [place] [employer] Scientific Statement. Circulation (2008); [...] Active Problems: COPD (chronic obstructive pulmonary disease) ([facility]) Benign essential hypertension Hyperlipidemia Dyspnea Acute on chronic systolic congestive heart failure ([facility]) Acute renal failure superimposed on stage 3 chronic kidney disease ([facility]) ASSESSMENT & PLAN CAD (coronary artery disease), [...] now resolved. COPD (chronic obstructive pulmonary disease) ([facility]) -Clinically, does not appear to be in [...] superimposed on stage 3 chronic kidney disease ([facility]) -Creatinine is stable. -There could be a component of cardiorenal syndrome. -Avoid nephrotoxins but will continue entresto and low-dose furosemide and. -Will consult nephrology. Type II diabetes -Start low range Humalog correctional sliding scale. -Hold metformin in the meantime. DVT prophylaxis: In place. GI prophylaxis: In place. Disposition: Inpatient. 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 [...] Note by Alok Mortensen RN at 05/03/18 7849 Author: Alok Mortensen RN Service: (none) Author Type: Registered Nurse Filed: 05/03/181905 Date of Service: 05/03/181905 Status: Signed Corporate Claims Examiner: Alok Mortensen RN (Registered Nurse) Pt to dental lab technician today no interventions. CT consult ( see note). No acute events this shift. 12 Hr chart check complete onver neema Transaction, Provider Unknown - 05/03/2018 3:52 PM PDT Pharmacy Note by Venice Garces [facility] at 05/03/181551 Author: Venice Garces RP Service: Pharmacy Author Type: Pharmacist Filed: 05/03/181552 Date of Service: 05/03/181551 Status: Signed Corporate Claims Examiner: Venice Garces RPH (Pharmacist) The following was reviewed by the pharmacist and is in agreement with the below: Venice Garces PharmD [facility] Rx CHF Medication Counseling Note Patient received [...] to improve on monit oring. Rodríguez Carlos, [facility] 05/03/2018 3:37 PM onver neema Transaction, Provider Unknown - 05/03/2018 12:05 PM PDT Nurse Progress Note by Alok Mortensen RN at 05/03/18 1205 Author: Alok Mortensen RN Service: (none) Author Type: Registered Nurse Filed: 05/03/18 1206 Date of Service: 05/03/18 120 Status: Signed Corporate Claims Examiner: Alok Mortensen RN (Registered Nurse) Report given to Michelle dental lab technician RN. Pt to cathlab. Alok Mortensen RN Tammy Day MD - 05/03/2018 9:36 AM PDT Progress Notes by Tammy Gorman MD at 05/03/18 5407 Author: Tammy Gorman MD Service: Hospitalist Author Type: Physician Filed: 05/03/18 8228 Date of Service: 05/03/1836 Status: Addendum Corporate Claims Examiner: Tammy Gorman MD (Physician) Related Notes: Original Note by Tammy Gorman MD (Physician) filed at 05/03/18 2805 [facility]: Hospitalist Progress Note Hospital Day: LOS: 2 days SUBJECTIVE Patient Summary: 62-year-old male with history of hyperlipidemia, COPD, previous smok er, chronic systolic congestive heart failure, ischemic cardiomyopathy EF of 30 percent stat us post defibrillator, coronary artery disease ST elevation [place] in 03/2017 status post stent l eft main to LAD and left circumflex, left atrial clot previously on Coumadin, recent admissi on in another institution on 10/2007. for pneumonia and transferred to [facility] for unstable shirley na status post ANY who presented with sudden onset of shortness of breath at [facility]. She was subsequently transferred to [facility] for further evaluation and management. Initi al troponin came back marginally high at 0.613. BNP is also high at 412. His troponin trende d up. He was initially treated with Lasix and DuoNeb at [place] with improvement of sympto ms. Cardiology, Dr. Hansen was consulted. Echocardiogram was done which showed an EF of 25-3 0 percent. [place] is at kinetic. Stress test was done [...] 18%. Risk stratificatio n according to the [place] [employer] Association and [place] [employer] Scientific Statement. Circulation (2008); [...] now resolved. COPD (chronic obstructive pulmonary disease) ([facility]) -Clinically, does not appear to be in [...] Inpatient. 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 Personal communication requested for any clarification. TAMMY GORMAN MD 05/03/2018 9:36 AM onversion Transact ion, Provider Unknown - 05/03/2018 9:20 AM PDTFormatting of this note might be different fr om the original. Progress Notes by Whit rGeen CRT at 05/03/18919 Author: Whit Green CRT Service: (none) Author Type: Certified Respiratory Therapist Filed: 05/03/18920 Date of Service: 05/03/18919 Status: Signed Corporate Claims Examiner: Whit Green CRT (Certified Respiratory Therapist) [facility] Oxygen Evaluation (Evaluation is valid for 48 [...] 05/03/18900 Date of Service: 05/03/18858 Status: Signed Corporate Claims Examiner: Deisy Hansen MD (Physician) [facility]: Cardiology Progress Note Hospital Day: LOS: [...] 05/03/18318 Date of Service: 05/03/18317 Status: Signed Corporate Claims Examiner: Deanna Ordonez RN (Registered Nurse) End of shift chart review and 24 hour chart check completed. onver neema Transaction, Provider Unknown - 05/02/2018 6:03 PM PDT Nurse Progress Note by Alok Mortensen RN at 05/02/181802 Author: Alok Mortensen RN Service: (none) Author Type: Registered Nurse Filed: 05/02/181804 Date of Service: 05/02/181802 Status: Signed Corporate Claims Examiner: Alok Mortensen RN (Registered Nurse) [place] x2 this shift for pain control. Pt to stress test in AM. Multiple episodes of asympto matic VT. 12 Hr chart check complete. Alok Mortensen RN avage , Deisy Haile MD - 05/02/2018 10:52 AM PDT Progress Notes by Deisy Hansen MD at 05/02/18 1052 Author: Deisy Hansen MD Service: (none) Author Type: Physician Filed: 05/02/18 1054 Date of Service: 05/02/181051 Status: Signed Corporate Claims Examiner: Deisy Hansen MD (Physician) [facility]: Cardiology Progress Note Hospital Day: LOS: [...] new. Want t o discuss with his site physician tomorrow (Thursday). DEISY HANSEN MD 05/02/2018 ydaniel, Isai Bailey MD - 05/02/2018 8:19 AM PDTFormatting of this note might be different from the satish ginal. Progress Notes by Lynn Rowland MD at 05/02/18818 Author: Lynn Rowland MD Service: (none) Author Type: Physician Filed: 05/02/18 1219 Date of Service: 05/02/18818 Status: Addendum Corporate Claims Examiner: Lynn Rowland MD (Physician) Related Notes: Original Note by Lynn Rowland MD (Physician) filed at 05/02/18 0834 [facility]: Hospitalist Progress Note Pt: Ron Mckeon AGE/SEX: 62 y.o. 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 No results for input(s): PHART, PO2ART, QCP3BYG, U8UEQPMG, BEART in the last 168 hours. Recent Labs Lab 05/01/18 0815 APTT 32 INR 1.0 Recent Labs Lab 05/02/18 0437 TSH 1.130 Recent Labs Lab 05/01/18 1805 05/01/18 1141 05/01/18 0815 CKTOTAL -- -- 67 TROPONINI 0.664* 0.678* 0.613* CKMBINDEX -- -- 3.9 PROBLEM LIST Principal Problem: Dyspnea Active Problems: COPD (chronic obstructive pulmonary disease) ([facility]) Benign essential hypertension Hyperlipidemia CAD (coronary artery disease) Acute on chronic systolic congestive heart failure (HCC) Acute renal failure superimposed on stage 3 chronic kidney disease ([facility]) ASSESSMENT & PLAN Principal Problem: Dyspnea: With [...] Progress Note by Deanna Ordonez RN at 05/02/18244 Author: Deanna Ordonez RN Service: (none) Author Type: Registered Nurse Filed: 05/02/18244 Date of Service: 05/02/18244 Status: Signed Corporate Claims Examiner: Deanna Ordonez RN (Registered Nurse) End of shift chart review and 24 hour chart check completed. onver neema Transaction, Provider Unknown - 05/01/2018 10:23 PM PDT Nurse Progress Note by Deanna Ordonez RN at 05/01/182222 Author: Deanna Ordonez RN Service: (none) Author Type: Registered Nurse Filed: 05/01/182225 Date of Service: 05/01/182222 Status: Signed Corporate Claims Examiner: Deanna Ordonez RN (Registered Nurse) Pt having [...] Author: RAINER Starkey Service: (none) Author Type: Formulation Chemist Filed: 05/01/182024 Date of Service: 05/01/182019 Status: Signed Corporate Claims Examiner: RAINER Starkey (Formulation Chemist) 05/01/182016 Discharge Planning Evaluation Admitting Diagnosis (dyspnea) [...] with spouse in 1 story home in [place], [place], is IADLS, uses a cane and shower chair (also has walker and w/c available), denies any charu health therapies or caregivers, does currently have OP cardiac therapy 2x per week at [place] [facility]. Patient denies any other ongoing regular OP therapies or services. Patient's PCP is: Chato Matson Patient denies any barriers to regular OP follow up. Patient's insurance: Medicaid [facility] Coverage concerns: none Medication coverage/concerns: none Community [...] 05/01/181824 Date of Service: 05/01/181821 Status: Signed Corporate Claims Examiner: Alok Mortensen RN (Registered Nurse) Tramadol x1 at 1210 and [place] x1 at 1528. No acute events this [...] Date of Service: 05/01/18 1038 Status: Signed Corporate Claims Examiner: Yajaira Rapp RPH (Pharmacist) Clinical Pharmacy Note: [...] H&P by Sheron Sherman MD at 05/01/18 0970 Author: Sheron Sherman MD Service: Hospitalist Author Type: Physician Filed: 05/03/18 0201 Date of Service: 05/01/18 0953 Status: Addendum Corporate Claims Examiner: Sheron Sherman MD (Physician) Related Notes: Original Note by Sheron Sherman MD (Physician) filed at 05/01/18 1016 [facility]: Hospitalist Admission History & Physical Date [...] coronary artery disease and was transferred from [place] to [facility] when he was found to have STEMI in 03/2017 with thrombosed left main artery treated with PCI of the left main into the LAD and subsequent PCI of left circumflex. His hospital course at that time was c omplicated by acute cardiogenic shock status post ECMO. Left atrial clot, previously on cou madin. He was again admitted at [facility] in 10/2017 when he was admitted for [...] to go to the emergency department in [place]. He has chronic neck pain but this [...] patient follows up with Dr. Figueroa at [place]. The patient was transferred from [place] to the main [facility] emergency department. I do n ot have the records from [facility]; however, while he was at [facility] his vitals were stable. Labs showed a troponin of 0.613 with EKG showing V paced, creatinine was elevated at 1.8. White count was normal. BNP was elevated at 412. Repeat troponin was 0.678. Ches t x-ray showed left mid lung plate-like atelectasis, otherwise lungs are clear. The patient received DuoNeb and Lasix at [place] with relief of his symptoms and he [...] Active Problems: COPD (chronic obstructive pulmonary disease) ([facility]) Benign essential hypertension Hyperlipidemia CAD (coronary artery [...] Date of Service: 05/02/18 100 Status: Signed Corporate Claims Examiner: ADARSH Reyes (Advanced Registered Nurse Practitioner) Pre-procedure Diagnoses: 1. Chest pain, unspecified type [R07.9] Post-procedure Diagnoses: 1. Chest pain, unspecified type [R07.9] Procedures: 1. NM MYOCARDIAL PERFUSION SPECT - STRESS AND REST [BVA508 (Custom)] [facility]: Diagnostic Imaging/Nuclear Medicine Cardiac Stress Test [...] 1621 Date of Service: 05/10/181616 Status: Signed Corporate Claims Examiner: Alo Garcia MD (Physician) [facility]: Cardiothoracic Surgery Initial Consult Note Date of Admission: 05/01/2018 Reason for Consultation: Evaluation for surgical revascularization Requesting Physician: Dr. Hansen, Cardiology History Obtained From: patient CHIEF COMPLAINT: Dyspnea HISTORY OF PRESENT ILLNESS The patient is a 62 y.o. male with significant past medical history of CAD(LRQ-ILT-Yxsaw-Ca rdiogenic ahkoi-KZRG-HMEH-10/2017), COPD, CKD, HTN, HTN admitted with dyspnea. [...] Y/O WM with recent LM stenting at [facility] complicated by cardiogenic shock requiring ECMO. The patient has recurrent disease in the LM stent involving the ostium of the circumflex. Non-viable anterior wall. Recommend High risk CABG with VAD back-up at [facility]. Code Status: Full Code Primary Care Physician: Chato Matson Thank you for allowing me to participate in the care of this patient. ALO GARCIA MD 05/10/2018 Isael Ramires M D - 05/06/2018 7:13 PM PDT Consult* by Isael Thakkar MD at 05/06/181912 Author: Isael Thakkar MD Service: Pulmonology Author Type: Physician Filed: 05/06/181946 Date of Service: 05/06/181912 Status: Addendum Corporate Claims Examiner: Isael Thakkar MD (Physician) Related Notes: Original Note by Isael Thakkar MD (Physician) filed at 05/06/181944 [facility]: PULMONOLOGY Initial Consult Note Date of [...] post defibrillator, coronary artery disease ST elevation AK in 03/2017 status post stent left main to LAD and lef t circumflex, left atrial clot previously on Coumadin, [facility] and transferred to [facility] for unstable angina status post ANY . The patient says that since he had pneumonia ,he says that he feels scared every time he h as shortness of breath. He says he was sleeping and woke up around midnight with complaints of shortness of breath. He started and sat right next to the bed and woke up his . 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 He says at that [...] Results: No results found for: FEV1, FVC, ORQ0TUO, TLC, DLCO Xr Chest Pa And Lateral [...] coronaries, again with coronary arterial stents noted. Ga Myocardial Perfusion Spect (stress And Rest) Result Date: 05/02/2018 RON MCKEON HI MYOCARDIAL PERFUSION SPECT - STRESS AND REST [...] 18%. Risk stratificatio n according to the [place] [employer] and [place] College of [employer]iology Scientific Statement. Circulation (2008); [...] With Contrast Result Date: 05/03/2018 Patient Name: RON MCKEON Date of : 1955 Performing Physician: [...] A Hasmukh: 0.64 m/ s TV Dec [place]: 2.15 m/s2 TV Dec Time: 236.16 ms TV E Hasmukh: 0.50 m/s TV E/A Ratio: 0. 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 I suggest the case was discussed with the site physician at [facility] and we should try to find ou t as to why CABG was not done at that time. I did explain the patient that his respiratory comorbidities which is COPD/sleep apnea does not play a big role at this time. This is a high-risk patient who has an established care at a [place] which is equ ipped with ECMO. He [...] 2239 Date of Service: 05/04/181048 Status: Signed Corporate Claims Examiner: Mario Alberto Brito MD (Physician) Hospital Problem [...] 62 M with h/o CAD transferred from [facility] on the with SOB, high Troponin. His [...] 0752 Date of Service: 05/04/18732 Status: Signed Corporate Claims Examiner: Alo Garcia MD (Physician) [facility]: Cardiothoracic Surgery Initial Consult Note Date of Admission: 05/01/2018 Reason for Consultation: Evaluation for surgical revascularization Requesting Physician: Dr. Hansen, Cardiology History Obtained From: patient CHIEF COMPLAINT: Dyspnea HISTORY OF PRESENT ILLNESS The patient is a 62 y.o. male with significant past medical history of CAD(WOE-JAO-Crhzd-Ca rdiogenic lcmst-MZVG-EMHE-10/2017), COPD, CKD, HTN, HTN admitted with dyspnea. [...] Y/O WM with recent LM stenting at [facility] complicated by cardiogenic shock requiring ECMO. The [...] different from the o riginal. Consults by Desiy Hansen MD at 05/01/18 1124 Author: Deisy Hansen MD Service: (none) Author Type: Physician Filed: 05/03/18 1254 Date of Service: 05/01/18 1124 Status: Signed Corporate Claims Examiner: Deisy Hansen MD (Physician) Related Notes: Original Note by Deisy Hansen MD (Physician) filed at 05/01/18 11 31 DATE OF ADMISSION: 05/01/2018 REASON FOR ADMISSION: Dyspnea. HISTORY OF PRESENT ILLNESS: This is a 62-year-old white male with a considerable cardiac h istory who came into the emergency room in [place] stating he was short of breath in [...] anterior descending. This was marco reyes in [place]. He was then transferred to [facility] where he was placed on EMCO for about a w [place]. He had stenting of his left main [...] has as a residual from the ECMO. [place] 5/325 every 6 hours as needed. Zestril [...] retired but not working. 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 He is with healthy grown ross juann. FAMILY HISTORY: His father of an AK in his 60s and paternal siblings around [...] 0628 Date of Service: 05/01/18811 Status: Signed Corporate Claims Examiner: Jeromy Muniz MD (Physician) [facility] Department of Emergency Medicine Pre-arrival Provider: Another ED Provider Name: AngierKathyDr. Ordonez Pertinent History and Concerns: Dx NSTEMI [...] Patient presented to the Emergency Department by: [place] [facility] Chief Complaint Chief Complaint Patient presents [...] an implanted defibrillator. Pt was seen at [facility] this morning for his shortness of breath and was transferred h [facility] for elevated troponin and NSTEMI. Patient has hx of AK in March 2017 and had cardiac sten t placement performed in [place] by Dr. Randy Merchant, Impression Printer at that time. 6 months later, patient reports he developed a pneumonia and was transferred from [facility] to [facility], where he was placed on ECMO support. Patient's last ECHO was in October of this year, near the time he had his pacemaker/defibrillator placed. Pt denies chest pain, fever, cough, nausea, vomiting, abdominal pain, headaches, or any other symptoms at this time. Care prior to arrival consisted of Hydrocodone, with no relief. Impression Printer: Dr. Randy Merchant at [place] Other significant factors in the PMH are noted and include: COPD, CHF, hyperlipidemia, hype rtension and AK PCP: Chato Matson Past Medical History Diagnosis [...] admission. Will discuss carmelita n with hospitalist neuropsychology medical consultant and continue care in the ED until care is assumed by hospitalist team. 9:[address] Sherman, Hospitalist, who accepts the patient for admission. Dr. Sherman requests I find out the brand of the patient's pacemaker. 9:50 AM. Patient recheck. Patient's pacemaker is [employer]. 9:[address] Hansen, Impression Printer, who will evaluate the patient in the [...] Old medical records. Nursing notes. No previous [facility] ED visits available in [facility] for review. [facility] ([place], [place]) records from earlier this morning state: CXR shows e jolanta interstitial edema. EKG shows paced rhythm without ischemic changes. Troponin was .0195 . [facility] Records: patient had anterior STEMI in March 2018 with cardiogenic shock and [address] acement with ECMO support. Patient had another stent placed in October 2017 during admissio n. Patient had transthoracic 10/11/17 that showed EF of 30-35% with severely abnormal LV funct ion. Laboratory Evaluation Results Procedure Component Value Ref Range Date/Time Cardiac Panel [[id number]] (Abnormal) Collected: 05/01/18 0815 Order Status: Completed [...] ng/mL CK-MB Index 3.9 Troponin I, Lab [[id number]] (Abnormal) Collected: 05/01/18814 Order Status: Completed Specimen: [...] 05/01/18811 Date of Service: 05/01/18810 Status: Signed Corporate Claims Examiner: Mirna Patel RN (Registered Nurse) Pt states [...] 05/01/18758 Date of Service: 05/01/18757 Status: Signed Corporate Claims Examiner: Mirna Patel RN (Registered Nurse) Pt was at [facility] this morning for SOB with hx of COPD and denied chest pain. Pt has IC PD. Troponin with [facility] troponin was 1.1. Given ASA and lasix at [facility] and hep jennie. Mirna Patel RN 05/01/18758 onver neema Transaction, Provider Unknown - 05/01/2018 7:57 AM PDT ED Notes by Mirna Patel RN at 05/01/18756 Author: Mirna Patel RN Service: (none) Author Type: Registered Nurse Filed: 05/01/18756 Date of Service: 05/01/18756 Status: Signed Corporate Claims Examiner: Mirna Patel RN (Registered Nurse) Bed: 19 Expected date: Expected time: Means of arrival: Comments: Jennifer Bradley Yuki Patel RN 05/01/18 0757 onver neema Transaction, Provider Unknown - 05/01/2018 6:38 AM PDT ED Notes by Lesley Santana RN at 05/01/18637 Author: Lesley Santana RN Service: (none) Author Type: Registered Nurse Filed: 05/01/1843 Date of Service: 05/01/18637 Status: Signed Corporate Claims Examiner: Lesley Santana RN (Registered Nurse) Report from ALFONSO Segura at [facility]: pt presented to their ER by [...] 05/13/18615 Date of Service: 05/13/18615 Status: Signed Corporate Claims Examiner: Monique Monreal RN (Registered Nurse) Problem: Pain [...] 05/12/181529 Date of Service: 05/12/181529 Status: Signed Corporate Claims Examiner: Heidi Berkowitz RN (Registered Nurse) Problem: Daily [...] Service: (none) Author Type: Physician Filed: 05/11/18 2558 Date of Service: 05/11/182216 Status: Addendum Corporate Claims Examiner: Lynn Rowland MD (Physician) Related Notes: Original Note by Lynn Rowland MD (Physician) filed at 05/11/18 4697 62 y.o. male with significant past medical history of CAD(DUI-YJX-Bobdh-Cardiogenic shock- ECMO-[facility] recent LM stenting at [facility] complicated by cardiogenic shock requiring ECMO. The patient has recurrent disease in the LM stent involving the ostium of the circumflex. Non-viable anterior wall.Recommend High risk CABG with VAD back-up at [facility] plan transfer when bed avilable RAT called [...] 05/11/18813 Date of Service: 05/11/18813 Status: Signed Corporate Claims Examiner: Lidia Hyde RN (Registered Nurse) Problem: Pain [...] 05/11/18535 Date of Service: 05/11/18535 Status: Signed Corporate Claims Examiner: Kathryn Adler RN (Registered Nurse) Problem: Safety [...] 05/10/181150 Date of Service: 05/10/181150 Status: Signed Corporate Claims Examiner: Lamar Schilling RN (Registered Nurse) Problem: Safety [...] 05/09/182238 Date of Service: 05/09/182238 Status: Signed Corporate Claims Examiner: Rubi Julio RN (Registered Nurse) Problem: Pain [...] Date of Service: 05/09/18 1640 Status: Signed Corporate Claims Examiner: Marianne Judge RN (Registered Nurse) Safety Patient [...] 05/09/18441 Date of Service: 05/09/18441 Status: Signed Corporate Claims Examiner: Marianne Lujan RN (Registered Nurse) Pain Patient's [...] Date of Service: 05/08/18 112 Status: Signed Corporate Claims Examiner: Nisa Kulkarni RN (Registered Nurse) Problem: Safety [...] Brianna Kaufman RN at 05/08/18409 Author: Brianna Kaufman RN Service: (none) Author Type: Registered Nurse Filed: 05/08/18409 Date of Service: 05/08/18409 Status: Signed Corporate Claims Examiner: Brianna Kaufman RN (Registered Nurse) Pain Goal: [...] in low, locked position at all times. [place] patient and family to hospital surroundings. Provide non-skid slippers. Call light within reach. Hourly rounding performed per standard. Discharge Goal: Patient's discharge needs are met. Outcome: Progressing Working with ancillary staff and Floor Covering Installer to identify discharge barriers and meet patie nt's discharge needs lan o f Care - Conversion Transaction, Provider Unknown - 05/07/2018 7:40 AM PDTFormatting of ruddy s note might be different from the original. Plan of Care by Nisa Kulkarni RN at 05/07/18739 Author: Nisa Kulkarni RN Service: (none) Author Type: Registered Nurse Filed: 05/07/18739 Date of Service: 05/07/18739 Status: Signed Corporate Claims Examiner: Nisa Kulkarni RN (Registered Nurse) Problem: Daily [...] 05/07/18234 Date of Service: 05/07/18234 Status: Signed Corporate Claims Examiner: Kathryn Adler RN (Registered Nurse) Problem: Safety [...] 05/06/181016 Date of Service: 05/06/181016 Status: Signed Corporate Claims Examiner: Nisa Kulkarni RN (Registered Nurse) Problem: Safety [...] 05/05/182316 Date of Service: 05/05/182316 Status: Signed Corporate Claims Examiner: Kathryn Adler RN (Registered Nurse) Problem: Safety [...] 05/05/18945 Date of Service: 05/05/18945 Status: Signed Corporate Claims Examiner: Nisa Kulkarni RN (Registered Nurse) Problem: Safety [...] 05/05/1847 Date of Service: 05/05/1847 Status: Signed Corporate Claims Examiner: Kathryn Adler RN (Registered Nurse) Problem: Pain [...] 05/04/18826 Date of Service: 05/04/18826 Status: Signed Corporate Claims Examiner: Alok Mortensen RN (Registered Nurse) Problem: Safety [...] 05/04/18125 Date of Service: 05/04/18124 Status: Signed Corporate Claims Examiner: Katherin Christopher RN (Registered Nurse) Daily Care [...] 1951 Date of Service: 05/03/181948 Status: Signed Corporate Claims Examiner: Alo Garcia MD (Physician) D/W Dr. Hansen Full consult to follow p Note - Deisy Hansen MD - 05/03/2018 12:50 PM PDT Brief Op Note by Deisy Hansen MD at 05/03/18 1250 Author: Deisy Hansen MD Service: (none) Author Type: Physician Filed: 05/03/18 1251 Date of Service: 05/03/181249 Status: Signed Corporate Claims Examiner: Deisy Hansen MD (Physician) Cath done and [...] 05/03/18955 Date of Service: 05/03/18955 Status: Signed Corporate Claims Examiner: Alok Mortensen RN (Registered Nurse) Problem: Safety [...] 05/02/182032 Date of Service: 05/02/181944 Status: Signed Corporate Claims Examiner: Deanna Ordonez RN (Registered Nurse) Problem: Pain [...] the original. Plan of Care by Alok Mortenesn RN at 05/02/181014 Author: Alok Mortensen RN Service: (none) Author Type: Registered Nurse Filed: 05/02/185 Date of Service: 05/02/181014 Status: Signed Corporate Claims Examiner: Alok Mortensen RN (Registered Nurse) Problem: Safety [...] 05/01/182022 Date of Service: 05/01/181929 Status: Signed Corporate Claims Examiner: Deanna Ordonez RN (Registered Nurse) Problem: Pain [...] Service: (none) Author Type: Registered Nurse Filed: 05/01/180 Date of Service: 05/01/181153 Status: Signed Corporate Claims Examiner: Alok Mortensen RN (Registered Nurse) Problem: Safety [...] | | | | | | [address] [facility] [place] | | | | | | [address] | | | | | | | | +--------+ + + + + | 04/16/ | Office | Cardiology | Alin Anderson | | 2019 | Visit | | MD [address] | | | | | | [address] | | | | | | [place] [address] | | | | | | [phone] | | | | | | | | +--------+ + + + + | 04/16/ | Procedure | Cardiology | | | | 2019 | visit | | | | +--------+ + + + + | 04/25/ | Office | Cardiology | Rocio Pearl, | | | 2019 | Visit | | MD Cheryl URENA | | | | | | [place], [place] | | | | | | [address] | | | | | | | [...] | | | Fingerstick | performed at [facility];[address] | | LAB | | | | [address] [facility];[place], [place] | | | | | | [address] | | | | + + + [...] | | | Patient | performed at [facility];[address] | | LAB | | | | [address];[place] | | | | | | [address] | | | | + + + [...] | | | Fingerstick | performed at [facility];[address] | | LAB | | | [address];[place], [place] | | | | | | [address] | | | | + + + [...] | | | Patient | performed at [facility];[address] | | LAB | | | | [address] [facility];[place], [place] | | | | | | [address] | | | | + + + [...] | | | Basophils | performed at [facility], [address] | [address] | LAB | | | | [address], | | | | | | [place] [address] | | | | + + + [...] EXTERNAL | | | | performed at [facility], [address] | | LAB | | | | [address], | | | | | | [place] [address] | | | | + + + [...] | | | | | | MDRD IDID traceable | | | | | | equation.Testing | | | | | | performed at [facility], [address] | | | | | | [facility], | | | | | | [place] [address] | | | | + + + [...] | | | Fingerstick | performed at [facility];[address] | | LAB | | | | [address];[place] | | | | | | [address] | | | | + + + [...] | | | Patient | performed at [facility];[address] | | LAB | | | | [address];[place] | | | | | | [address] | | | | + + + [...] | | | Fingerstick | performed at [facility];[address] | | LAB | | | | [address];[place], [place] | | | | | | [address] | | | | + + + [...] | | | Patient | performed at [facility];[address] | | LAB | | | | [address];[place] | | | | | | [address] | | | | + + + [...] | | | Fingerstick | performed at [facility];[address] | | LAB | | | | [address];[place], [place] | | | | | | [address] | | | | + + + [...] | | | Fingerstick | performed at [facility];[address] | | LAB | | | | [address];[place] | | | | | | [address] | | | | + + + [...] | | | Patient | performed at [facility];[address] | | LAB | | | | [address];[place], [place] | | | | | | [address] | | | | + + + [...] | | | Basophils | performed at [facility], [address] | K/uL | LAB | | | | [address], | | | | | | [place] [address] | | | | + + + [...] EXTERNAL | | | | performed at [facility], [address] | | LAB | | | | [address], | | | | | | [place] [address] | | | | + + + [...] | | | | | [place] [address] | | | | + + + [...] | | | Fingerstick | performed at [facility];[address] | | LAB | | | | [address];[place] | | | | | | [address] | | | | + + + [...] | | | Fingerstick | performed at [facility];[address] | | LAB | | | | [address];[place], [place] | | | | | | [address] | | | | + + + [...] | | | Fingerstick | performed at [facility];[address] | | LAB | | | | [address];[place] | | | | | | [address] | | | | + + + [...] | | | Patient | performed at [facility];[address] | | LAB | | | | [address];[place], [place] | | | | | | [address] | | | | + + + [...] | | | Patient | performed at [facility];[address] | | LAB | | | | [address];[place], [place] | | | | | | [address] | | | | + + + [...] | | | Basophils | performed at [facility], [address] | K/uL | LAB | | | | [address], | | | | | | [place] [address] | | | | + + + [...] | | | Fingerstick | performed at [facility];[address] | | LAB | | | | [address];[place], [place] | | | | | | [address] | | | | + + + [...] [address] | | | | | | [facility], | | | | | | [place] [address] | | | | + + + [...] | | | Fingerstick | performed at [facility];[address] | | LAB | | | | [address];[place] | | | | | | [address] | | | | + + + [...] | | | Patient | performed at [facility];[address] | | LAB | | | | [address];[place], [place] | | | | | | [address] | | | | + + + [...] | | | Fingerstick | performed at [facility];[address] | | LAB | | | | [address];[place] | | | | | | [address] | | | | + + + [...] | | | Patient | performed at [facility];888 | | LAB | | | | [address];[place] | | | | | | [address] | | | | + + + [...] | | | Fingerstick | performed at [facility];888 | | LAB | | | | [address];[place] | | | | | | [address] | | | | + + + [...] | | | Patient | performed at [facility];[address] | | LAB | | | | [address];[place], [place] | | | | | | [address] | | | | + + + [...] | | | | | performed at [facility];[address] | | | | | | [address];[place], [place] | | | | | | [address] | | | | + + + [...] | | | Fingerstick | performed at [facility];888 | | LAB | | | | [address];[place] | | | | | | [address] | | | | + + + [...] | | | Patient | performed at [facility];888 | | LAB | | | | [address];[place], [place] | | | | | | [address] | | | | + + + [...] | | | Fingerstick | performed at [facility];8 | | LAB | | | | [address];[place] | | | | | | [address] | | | | + + + [...] | | | Patient | performed at [facility];888 | | LAB | | | | [address];[place], [place] | | | | | | [address] | | | | + + + [...] | | | Fingerstick | performed at [facility];[address] | | LAB | | | | [address];[place], [place] | | | | | | [address] | | | | + + + [...] | | | Fingerstick | performed at [facility];888 | | LAB | | | | [address];[place], [place] | | | | | | [address] | | | | + + + [...] | | | Patient | performed at [facility];[address] | | LAB | | | | [address];[place] | | | | | | [address] | | | | + + + [...] | | | Fingerstick | performed at [facility];[address] | | LAB | | | | [address];[place] | | | | | | [address] | | | | + + + [...] | | | Fingerstick | performed at [facility];888 | | LAB | | | | [address];[place] | | | | | | [address] | | | | + + + [...] | | | Patient | performed at [facility];[address] | | LAB | | | | [address];[place], [place] | | | | | | [address] | | | | + + + [...] | | | | | performed at [facility], [address] | | | | | | [address], | | | | | | [place] [address] | | | | + + + [...] | | | Patient | performed at [facility];888 | | LAB | | | | [address];[place] | | | | | | [address] | | | | + + + [...] | | | Fingerstick | performed at [facility];888 | | LAB | | | | [address];[place] | | | | | | [address] | | | | + + + [...] EXTERNAL | | | | performed at [facility];888 | mmol/L | LAB | | | | [address];[place] | | | | | | [address] | | | | + + + [...] | | | Fingerstick | performed at [facility];[address] | | LAB | | | | [address];[place], [place] | | | | | | [address] | | | | + + + [...] | | | Fingerstick | performed at [facility];888 | | LAB | | | | [address];[place] | | | | | | [address] | | | | + + + [...] | | | Fingerstick | performed at [facility];[address] | | LAB | | | | [address];[place], [place] | | | | | | [address] | | | | + + + [...] | | | Fingerstick | performed at [facility];8 | | LAB | | | | [address];[place] | | | | | | [address] | | | | + + + [...] | | | Patient | performed at [facility];[address] | | LAB | | | | [address];[place], [place] | | | | | | [address] | | | | + + + [...] | | | Fingerstick | performed at [facility];[address] | | LAB | | | | [address];[place], [place] | | | | | | [address] | | | | + + + [...] | | | | | | MDRD IDID traceable | | | | | | equation.Testing | | | | | | performed at [facility], [address] | | | | | | [facility], | | | | | | [place] [address] | | | | + + + [...] | | | Patient | performed at [facility];[address] | | LAB | | | | [address];[place], [place] | | | | | | [address] | | | | + + + [...] | | | Fingerstick | performed at [facility];888 | | LAB | | | | [address];[place] | | | | | | [address] | | | | + + + [...] | | | Patient | performed at [facility];[address] | | LAB | | | | [address];[place], [place] | | | | | | [address] | | | | + + + [...] | | | Fingerstick | performed at [facility];[address] | | LAB | | | | [address];[place] | | | | | | [address] | | | | + + + [...] | | | Patient | performed at [facility];[address] | | LAB | | | | [address];[place] | | | | | | [address] | | | | + + + [...] | | | Fingerstick | performed at [facility];[address] | | LAB | | | | [address];[place] | | | | | | [address] | | | | + + + [...] | | | Patient | performed at [facility];[address] | | LAB | | | | [address];[place] | | | | | | [address] | | | | + + + [...] | | | Fingerstick | performed at [facility];[address] | | LAB | | | | [address];[place], [place] | | | | | | [address] | | | | + + + [...] | | | Patient | performed at [facility];[address] | | LAB | | | | [address];[place] | | | | | | [address] | | | | + + + [...] | | | Fingerstick | performed at [facility] | | LAB | | | | [address];[place] | | | | | | [address] | | | | + + + [...] | | | Patient | performed at [facility];[address] | | LAB | | | | [address];[place], [place] | | | | | | [address] | | | | + + + [...] | | | Fingerstick | performed at [facility];[address] | | LAB | | | | [address];[place], [place] | | | | | | [address] | | | | + + + [...] | | | Patient | performed at [facility];[address] | | LAB | | | | [address];[place] | | | | | | [address] | | | | + + + [...] | | | Fingerstick | performed at [facility];[address] | | LAB | | | | [address];[place], [place] | | | | | | [address] | | | | + + + [...] | | | Fingerstick | performed at [facility];[address] | | LAB | | | | [address];[place], [place] | | | | | | [address] | | | | + + + [...] | | | Patient | performed at [facility];[address] | | LAB | | | | [address];[place], [place] | | | | | | [address] | | | | + + + [...] | | | Basophils | performed at [facility], [address] | K/uL | LAB | | | | [address], | | | | | | [place] [address] | | | | + + + [...] | | | | | performed at [facility], [address] | | | | | | [facility], | | | | | | [place] [address] | | | | + + + [...] | | | Fingerstick | performed at [facility];[address] | | LAB | | | | [address];[place] | | | | | | [address] | | | | + + + [...] | | | Fingerstick | performed at [facility];[address] | | LAB | | | | [address];[place] | | | | | | [address] | | | | + + + [...] | | | Fingerstick | performed at [facility];[address] | | LAB | | | | [address];[place], [place] | | | | | | [address] | | | | + + + [...] - 1.030 | EXTERNAL | | | [place], | | | LAB | | | [...] | | | Urine | performed at [facility], [address] | | LAB | | | | [address], | | | | | | [place] [address] | | | | + + + [...] | | | Fingerstick | performed at [facility];[address] | | LAB | | | | [address];[place] | | | | | | [address] | | | | + + + [...] | | | Patient | performed at [facility];[address] | | LAB | | | | [address];[place] | | | | | | [address] | | | | + + + [...] | | | Patient | performed at [facility];[address] | | LAB | | | | [address];[place], [place] | | | | | | [address] | | | | + + + [...] | | | Fingerstick | performed at [facility];[address] | | LAB | | | | [address];[place], [place] | | | | | | [address] | | | | + + + [...] | | | Fingerstick | performed at [facility];[address] | | LAB | | | | [address];[place], [place] | | | | | | [address] | | | | + + + [...] | | | Patient | performed at [facility];[address] | | LAB | | | | [address];[place], [place] | | | | | | [address] | | | | + + + [...] | | | Fingerstick | performed at [facility];[address] | | LAB | | | | [address];[place], [place] | | | | | | [address] | | | | + + + [...] EXTERNAL | | | | performed at [facility];[address] | | LAB | | | | [address];[place] | | | | | | [address] | | | | + + + [...] | | | Patient | performed at [facility];[address] | | LAB | | | | [address];[place], [place] | | | | | | [address] | | | | + + + [...] | | | | | performed at [facility] | | | | | | [facility];[place], [place] | | | | | | [address] | | | | + + + [...] | | | Fingerstick | performed at [facility];8 | | LAB | | | | [address];[place] | | | | | | [address] | | | | + + + [...] | | | Basophils | performed at [facility], [address] | K/uL | LAB | | | | [address], | | | | | | [place] [address] | | | | + + + [...] EXTERNAL | | | | performed at [facility], [address] | | LAB | | | | [address], | | | | | | [place] [address] | | | | + + + [...] | | | | | performed at [facility], [address] | | | | | | [address], | | | | | | [place], [place] [address] | | | | + + + [...] | | | Fingerstick | performed at [facility];[address] | | LAB | | | | [address];[place], [place] | | | | | | [address] | | | | + + + [...] | | | Fingerstick | performed at [facility];[address] | | LAB | | | | [address];[place], [place] | | | | | | [address] | | | | + + + [...] | | | Basophils | performed at [facility], [address] | K/uL | LAB | | | | [address], | | | | | | [place] [address] | | | | + + + [...] EXTERNAL | | | | performed at [facility] | | LAB | | | | [address];[place] | | | | | | [address] | | | | + + + [...] | | | | | | MDRD IDID traceable | | | | | | equation.Testing | | | | | | performed at [facility], [address] | | | | | | [facility], | | | | | | [place] [address] | | | | + + + [...] | | Risk stratification according to the [place] [employer] | | | and [employer] [place] [employer] Scientific Statement. Circulation | [...] | + + + | RON MCKEON HI MYOCARDIAL PERFUSION SPECT - STRESS AND REST [...] at 18%. Risk stratification according to the [employer] [place] [employer] | | Association and [employer] [place] [employer] Scientific Statement. Circulation (2008); [...] | | |Risk stratification according to the [place] [employer] and [employer] [place] [employer] Car diology Scientific Statement. Circulation [...] | | | Basophils | performed at [facility], [address] | K/uL | LAB | | | | [address], | | | | | | [place] [address] | | | | + + + [...] EXTERNAL | | | | performed at [facility], [address] | uIU/mL | LAB | | | | [address], | | | | | | [place] [address] | | | | + + + [...] EXTERNAL | | | | performed at [facility], [address] | | LAB | | | | [address], | | | | | | [place] [address] | | | | + + + [...] EXTERNAL | | | | performed at [facility];[address] | | LAB | | | | [address];[place], [place] | | | | | | [address] | | | | + + + [...] EXTERNAL | | | | performed at [facility], [address] | | LAB | | | | [address], | | | | | | [place] [address] | | | | + + + [...] | | | | | performed at [facility], [address] | | | | | | [address] [facility], | | | | | | [place] [address] | | | | + + + [...] | | | | | | ACUTE AK CALLED NURSING | | | | | | UNITREAD BACK RESULTS | | | | | | VERIFIEDCALLED TO DEBO | | | | | | IN [facility] AT 1852 BY | | | | | | LGJTesting performed at | | | | | | [facility];[address];[place] [address] | | | | + + + [...] TV A Hasmukh: 0.64 m/s TV Dec [place]: 2.15 m/s2 TV | | | Dec Time: 236.16 ms TV E Hasmukh: 0.50 m/s TV E/A Ratio: 0.78 | | | Weed Eradicator: JUNI Authenticated by: Deisy Hansen MD Report [...] (A-L): 36.55 ml/m2LAAs | | A2C: 24.13 [id number] A-L A2C: 87.75 mlLALs A2C: 5.63 cmLAAs A4C: 20.35 [id number] | | A-L A4C: 65.67 mlLALs A4C: 5.35 cmAo Diam: 3.38 cmLA Diam: 4.41 cmLA/Ao: | | 1.30TAPSE: 1.84 cmHR: 77.85 BPMAV maxP.75 mmHgAV meanP.02 mmHgAV Vmax: | | 1.09 m/Emil Vmean: 0.83 m/Emil VTI: 19.10 cmAVA Vmax: 2.61 cm2AVA (VTI): 2.73 | | [id number] Vmax: 0.00 cm2/m2AVAI (VTI): 0.00 cm2/m2LVCI Dopp: 1.86 l/rwvq6JHDM Dopp: | | 3.97 l/minHR: 76.15 BPMLVOT [...] A Hasmukh: | | 0.64 m/sTV Dec [place]: 2.15 m/s2TV Dec Time: 236.16 msTV E Hasmukh: 0.50 m/sTV E/A | | Ratio: 0.78 Weed Eradicator: Ritaticated by: Diesy Hansen MDReport Date/Time: | | 05-03-2018 12:44:37 [...] A Hasmukh: 0.64 m/s | |TV Dec [place]: 2.15 m/s2 | |TV Dec Time: 236.16 ms | |TV E Hasmukh: 0.50 m/s | |TV E/A Ratio: 0.78 | | | |Weed Eradicator: JUNI | |Authenticated by: Deisy Hansen MD [...] | | | | | | ACUTE AK CALLED NURSING | | | | | | INOCENCIATERESA J/4 RP @ 1231 | | | | | | BY BURTREAD BACK RESULTS | | | | | | VERIFIEDTesting | | | | | | performed at [facility] | | | | | | [facility];[place], [place] | | | | | | [address] | | | | + + + [...] Conversion - 04/20/2019 8:30 AM PDT RON COLLAZOOBERTS2[id number] years | | MaleXR CHEST 2 VIEW [...] | | | | | | ACUTE AK CALLED NURSING | | | | | | UNITHIMMEL/ED @ 0911 BY | | | | | | Newser BACK RESULTS | | | | | | VERIFIEDTesting | | | | | | performed at [facility];[address] | | | | | | [address];[place], [place] | | | | | | [address] | | | | + + + [...] EXTERNAL | | | | performed at [facility];[address] | | LAB | | | | [address];[place], [place] | | | | | | [address] | | | | + + + [...] | | | | | ONLY, -COMPUTER (573), | | | | | | assignment editor Tiny Brambila | | | | [...]
--- OUTSIDE RECORDS SUMMARY | ~2020-03-04 | XMS | Encounter Summary ---
Demographics + + + | Address | [address] | | | [place] [address] | + + + | Home Phone [...] [place], [place] | | | | | [address] | | + + + + + Care Team Providers + +------+ + | Care District Fire Chief Name | Role | Phone | [...] [address] | | | | | | [place], [place] | | | | | | [address] | | | | | | [phone] | | | +--------+ + + + [...] [place] | | | | | | [address] | | | | | | | | +--------+ + + + + | 04/16/ | Office | Cardiology | Alin Anderson | | | 2019 | Visit | | MD Cheryl Arreguin | | | | | | [address] | | | | | | [place] [address] | | | | | | [phone] | | | | | | | [...] [place] | | | | | | [address] | | | | | | | | +--------+ + + + + documented as of this encounter Visit Diagnoses Not on filedocumented in this encounter"
--- OUTSIDE RECORDS SUMMARY | ~2020-03-04 | XMS | Encounter Summary ---
Demographics + + + | Address | [address] | | | [place] [address] | + + + | Home Phone [...] [place] | | | | | [address] | | + + + + + Care Team Providers + +------+ + | Care Online Advertising Manager Name | Role | Phone | [...] | Rehabilitatio | | | | | disease, | [address] | [address] | | | | | angina | [place], | [place] | | | | | presence | [place] [address] | [place], [place] | | | | | unspecified, | Phone: | [address] | | | | | unspecified | [phone] | Phone: | | | | | vessel or | Fax: | [phone] | | | | | lesion type, | [phone] | Fax: | | | | | unspecified | | [phone] | | | | | whether | | | | | | | [place] or | | | | | | | transplanted | | | | | | | heart Post | | | | | | | PTCA | | | | | | | Procedures | | | | | | | IA | | | | | | | OUTPATIENT | | | | | | | CARDIAC | | | | | | | REHAB W/O | | | | | | | CONT ECG | | | | | | | MONITOR | | | | | | | GOOD THRU | | | | | | | 09/25/18 - | | | | | | | OK TO USE | | | | | | | [facility] IN | | | | | | | CARDIAC | | | | | | | REHAB | | | +--------+ + + + + + Encounter Details +--------+---------+ + + + | Date | Type | Department | Care Team | Description | +--------+---------+ + + + | 08/03/ | Office | [facility] | Randy Figueroa, | Coronary artery | | 2018 | Visit | [facility] | [address] [facility] | disease, angina | | | | REHABILITATION [address] [place], | presence | | | | [address] [place] | [place] [address] | unspecified, | | | | [place] [address] | [phone] | unspecified vessel | | | | [phone] | | or lesion type, | | | | | Maria Esther Fields RN | unspecified whether | | | | | | [place] or | | | | | | transplanted heart; | | | | | | Post PTCA | +--------+---------+ + + + [...] Progress Notes Maria Esther Fields RN - 08/03/2018 9:15 AM PST [facility]ATION [address] [facility] [address] Cardiac Rehab Evaluation Date: 08/03/2018 Patient Information Patient Name: Bob Will Date of : 1955 Age: 62 y.o. Referring Provider: Randy Figueroa MD Encounter Diagnoses Code Name Primary? I25.10 Coronary artery disease, angina presence unspecified, unspecified vessel or lesi on type, unspecified whether [place] or transplanted heart Z98.61 Post PTCA Cardiac Rehab Phase II [...] PTCA in Oct 2017, CHF, LVEF 35-40%, APPOINTMENT MANAGER -D placement in [facility] [...] Admission Weight: 220# 30 Day W eight: BMI: 31.6 60 Day Weight: Discharge Weight: Weight Goal: [...] Healthy Dietary Education Date: 08/03/18 -Referral to Density Control Puncher: Date: -DVD: Healthy Eating For Life Date: [...] Exercise BP: 98/50 30 Day Resting BP: 30 Day Exercise [...] exercise until stable. Date: Range: -Referral to Estimator Binding Date: Education Points listed below- Date Completed: [...] occasionally Initial PHQ-9: 4 30 Day PHQ-9: 90 [...] Electronically signed by: Maria Esther Fields RN, 08/03/2018 12:36 Patient Name: Bob Will/: 1955/ ly signed by Randy Figueroa MD at 08/03/2018 1:13 PM PSTdocumented in this encounter Plan of Treatment +--------+ + + + + | Date | Type | Specialty | Care Team | Description | +--------+ + + + + | 03/12/ | Office | Nephrology | Litzy, | | | 2019 | Visit | | ADARSH [address] | | | | | | [address] [facility] | | | | | | [address] [place] | | | | | | [address] | | | | | | | | +--------+ + + + + | 04/16/ | Office | Cardiology | Alin Anderson | | 2019 | Visit | | MD Cheryl Arreguin | | | | | | [address] | | | | | | [place] [address] | | | | | | [phone] | | | | | | | [...] [place] | | | | | | [address] | | | | | | | | +--------+ + + + + documented as of this encounter Visit Diagnoses + + | Diagnosis | + + | Coronary artery disease, angina presence unspecified, unspecified vessel or lesion | | type, unspecified whether [place] or transplanted heart | + + | Post PTCA Postsurgical percutaneous transluminal coronary angioplasty status | + + documented in this encounter
--- OUTSIDE RECORDS SUMMARY | ~2020-03-04 | XMS | Encounter Summary ---
Demographics + + + | Address | [address] [place] [address] | | | [place] [address] | + + + | Home Phone [...] | | | | | [place] [address] | | + + + + + Care Team Providers + +------+ + | Care Automation Developer Name | Role | Phone | [...] | | | | | | [place] [address] | | | +--------+--------+ + + + [...]
--- OUTSIDE RECORDS SUMMARY | ~2020-03-04 | XMS | Encounter Summary ---
Demographics + + + | Address | [address] | | | [place] [address] | + + + | Home Phone [...] [place] | | | | | [address] | | + + + + + Care Team Providers + +------+ + | Care Dealmaker Name | Role | Phone | + +------+ + | Amy Olivares MD | PCP | | + +------+ + Encounter Details +--------+ + + + + | Date | Type | Department | Care Team | Description | +--------+ + + + + | 07/17/ | Abstract | [facility] | Jenny, | | | 2019 | | CARDIOLOGY [address] | [address] | | | | | [place], | [place], | | | | | [place] [address] | [place] [address] | | | | | [phone] | [phone] | | | | | | | [...] | | | | | [address] [facility] | | | | | | [address] | | | | | | [address] | | | | | | | | +--------+ + + + + | 04/16/ | Office | Cardiology | Alin Anderson | | | 2019 | Visit | | [address] | | | | | | [address] | | | | | | [place] [address] | | | | | | [phone] | | | | | | | [...] [place] | | | | | | [address] | | | | | | | | +--------+ + + + + documented as of this encounter Procedures + +--------+ + + + | Procedure Name | Priori | Date/Time | Associated Diagnosis | Comments | | | ty | | | | + +--------+ + + + | EXTERNAL LAB: DONTE | Routin | 10/21/2018 | | Results for this | | | e | | | procedure are in the | | | | | | results section. | + +--------+ + + + | EXTERNAL LAB: | Routin | 10/21/2018 | | Results for this | | GLUCOSE | e | | | procedure are in the | | | | | | results section. | + +--------+ + + + | EXTERNAL LAB: | Routin | 10/21/2018 | | Results for this | | CALCIUM | e | | | procedure are in the | | | | | | results section. | + +--------+ + + + | EXTERNAL LAB: CARBON | Routin | 10/21/2018 | | Results for this | | DIOXIDE | e | | | procedure are in the | | | | | | results section. | + +--------+ + + + | EXTERNAL LAB: | Routin | 10/21/2018 | | Results for this | | CHLORIDE | e | | | procedure are in the | | | | | | results section. | + +--------+ + + + | EXTERNAL LAB: | Routin | 10/21/2018 | | Results for this | | POTASSIUM | e | | | procedure are in the | | | | | | results section. | + +--------+ + + + | EXTERNAL LAB: SODIUM | Routin | 10/21/2018 | | Results for this | | | e | | | procedure are in the | | | | | | results section. | + +--------+ + + + | EXTERNAL LAB: EGFR | Routin | 10/21/2018 | | Results for this | | | e | | | procedure are in the | | | | | | results section. | + +--------+ + + + | EXTERNAL LAB: | Routin | 10/21/2018 | | Results for this | | CREATININE | e | | | procedure are in the | | | | | | results section. | + +--------+ + + + | EXTERNAL LAB: BUN | Routin | 10/20/2018 | | Results for this | | | e | | | procedure are in the | | | | | | results section. | + +--------+ + + + | EXTERNAL LAB: | Routin | 10/20/2018 | | Results for this | | GLUCOSE | e | | | procedure are in the | | | | | | results section. | + +--------+ + + + | EXTERNAL LAB: | Routin | 10/20/2018 | | Results for this | | CALCIUM | e | | | procedure are in the | | | | | | results section. | + +--------+ + + + | EXTERNAL LAB: CARBON | Routin | 10/20/2018 | | Results for this | | DIOXIDE | e | | | procedure are in the | | | | | | results section. | + +--------+ + + + | EXTERNAL LAB: | Routin | 10/20/2018 | | Results for this | | CHLORIDE | e | | | procedure are in the | | | | | | results section. | + +--------+ + + + | EXTERNAL LAB: | Routin | 10/20/2018 | | Results for this | | POTASSIUM | e | | | procedure are in the | | | | | | results section. | + +--------+ + + + | EXTERNAL LAB: SODIUM | Routin | 10/20/2018 | | Results for this | | | e | | | procedure are in the | | | | | | results section. | + +--------+ + + + | EXTERNAL LAB: CBC | Routin | 10/20/2018 | | Results for this | | | e | | | procedure are in the | | | | | | results section. | + +--------+ + + + | EXTERNAL LAB: CBC | Routin | 10/20/2018 | | Results for this | | | e | | | procedure are in the | | | | | | results section. | + +--------+ + + + | EXTERNAL LAB: CBC | Routin | 10/20/2018 | | Results for this | | | e | | | procedure are in the | | | | | | results section. | + +--------+ + + + | EXTERNAL LAB: CBC | Routin | 10/20/2018 | | Results for this | | | e | | | procedure are in the | | | | | | results section. | + +--------+ + + + | EXTERNAL LAB: | Routin | 10/20/2018 | | Results for this | | CHOLESTEROL, LDL | e | | | procedure are in the | | | | | | results section. | + +--------+ + + + | EXTERNAL LAB: EGFR | Routin | 10/20/2018 | | Results for this | | | e | | | procedure are in the | | | | | | results section. | + +--------+ + + + | EXTERNAL LAB: | Routin | 10/20/2018 | | Results for this | | CREATININE | e | | | procedure are in the | | | | | | results section. | + +--------+ + + + | LIPID PANEL | Routin | 10/20/2018 | | Results for this | | | e | | | procedure are in the | | | | | | results section. | + +--------+ + + + | CBC WITH | Routin | 10/20/2018 | | Results for this | | DIFFERENTIAL | e | | | procedure are in the | | | | | | results section. | + +--------+ + + + | HEMOGLOBIN A1C | Routin | 10/20/2018 | | Results for this | | | e | | | procedure are in the | | | | | | results section. | + +--------+ + + + documented in this encounter Results External Lab: DONTE (10/21/2018) + +--------+ + + + | Component | Value | Ref Range | Performed | Pathologist | | | | | At | Signature | + +--------+ + + + | DONTE, | 41 (A) | 7 - 23 | EXTERNAL | | | External | | | LAB | | + +--------+ + + + + +---------+ + + | Performing | Address | City/State/Zipcode | Phone Number | | Organization | | | | + +---------+ + + | EXTERNAL LAB | | | | + +---------+ + + External Lab: Glucose (10/21/2018) + + + + + + | Component | Value | Ref Range | Performed | Pathologist | | | | | At | Signature | + + + + + + | Glucose, | 122 (A)Comment: SERUM | 71 - 109 | EXTERNAL | | | External | | | LAB | | + + + + + + + +---------+ + + | Performing | Address | City/State/Zipcode | Phone Number | | Organization | | | | + +---------+ + + | EXTERNAL LAB | | | | + +---------+ + + External Lab: Calcium (10/21/2018) + +-------+ + + + | Component | Value | Ref Range | Performed | Pathologist | | | | | At | Signature | + +-------+ + + + | Calcium, | 9.4 | 8.4 - 10.5 | EXTERNAL | | | External | | | LAB | | + +-------+ + + + + +---------+ + + | Performing | Address | City/State/Zipcode | Phone Number | | Organization | | | | + +---------+ + + | EXTERNAL LAB | | | | + +---------+ + + External Lab: Carbon Dioxide (10/21/2018) + +-------+ + + + | Component | Value | Ref Range | Performed | Pathologist | | | | | At | Signature | + +-------+ + + + | Carbon | 22 | 21 - 32 | EXTERNAL | [...] + +---------+ + + External Lab: Chloride (10/21/2018) + +---------+ + + + | Component | Value | Ref Range | Performed | Pathologist | | | | | At | Signature | + +---------+ + + + | Chloride, | 110 (A) | 98 - 107 | EXTERNAL | | | External | | | LAB | | + +---------+ + + + + +---------+ + + | Performing | Address | City/State/Zipcode | Phone Number | | Organization | | | | + +---------+ + + | EXTERNAL LAB | | | | + +---------+ + + External Lab: Potassium (10/21/2018) + +---------+ + + + | Component | Value | Ref Range | Performed | Pathologist | | | | | At | Signature | + +---------+ + + + | Potassium, | 5.7 (A) | 3.5 - 5.1 | EXTERNAL | | | External | | | LAB | | + +---------+ + + + + +---------+ + + | Performing | Address | City/State/Zipcode | Phone Number | | Organization | | | | + +---------+ + + | EXTERNAL LAB | | | | + +---------+ + + External Lab: Sodium (10/21/2018) + +-------+ + + + | Component | Value | Ref Range | Performed | Pathologist | | | | | At | Signature | + +-------+ + + + | Sodium, | 140 | 133 - 145 | EXTERNAL | | | External | | | LAB | | + +-------+ + + + + +---------+ + + | Performing | Address | City/State/Zipcode | Phone Number | | Organization | | | | + +---------+ + + | EXTERNAL LAB | | | | + +---------+ + + External Lab: eGFR (10/21/2018) + + + + + + | [...] + +---------+ + + External Lab: Creatinine (10/21/2018) + +---------+ + + + | Component [...] | | | + +---------+ + + Lipid Panel (10/20/2018) + +---------+ + + + | Component | Value | Ref Range | Performed | Pathologist | | | | | At | Signature | + +---------+ + + + | Chol/HDL | 3.2 (A) | 3.7 - 6.7 | | | | Ratio | | | | | + +---------+ + + + | Non-HDL | 61 | 130 | | | | Cholesterol | | | | | + +---------+ + + + + + | Specimen | + + | Blood | + + External Lab: CBC (10/20/2018) + +-------+ + + + | Component | Value | Ref Range | Performed | Pathologist | | | | | At | Signature | + +-------+ + + + | Monocytes, | 0.8 | 0.2 - 1 | EXTERNAL | | | Absolute, | | | LAB | | | External | | | | | + +-------+ + + + | Eosinophils | 0.1 | 0 - 0.5 | EXTERNAL | | | , Absolute | | | LAB | | + +-------+ + + + | Basophils, | 0.0 | 0 - 0.2 | EXTERNAL | | | Absolute | | | LAB | | + +-------+ + + + + +---------+ + + | Performing | Address | City/State/Zipcode | Phone Number | | Organization | | | | + +---------+ + + | EXTERNAL LAB | | | | + +---------+ + + Hemoglobin A1C (10/20/2018) + +---------+ + + + | Component [...] + +---------+ + + External Lab: DONTE (10/20/2018) + +--------+ + + + | Component | Value | Ref Range | Performed | Pathologist | | | | | At | Signature | + +--------+ + + + | DONTE, | 59 (A) | 7 - 23 | EXTERNAL | | | External | | | LAB | | + +--------+ + + + + +---------+ + + | Performing | Address | City/State/Zipcode | Phone Number | | Organization | | | | + +---------+ + + | EXTERNAL LAB | | | | + +---------+ + + External Lab: Glucose (10/20/2018) + +---------+ + + + | Component | Value | Ref Range | Performed | Pathologist | | | | | At | Signature | + +---------+ + + + | Glucose, | 123 (A) | 71 - 109 | EXTERNAL | | | External | | | LAB | | + +---------+ + + + + +---------+ + + | Performing | Address | City/State/Zipcode | Phone Number | | Organization | | | | + +---------+ + + | EXTERNAL LAB | | | | + +---------+ + + External Lab: Calcium (10/20/2018) + +---------+ + + + | Component | Value | Ref Range | Performed | Pathologist | | | | | At | Signature | + +---------+ + + + | Calcium, | 8.2 (A) | 8.4 - 10.5 | EXTERNAL | | | External | | | LAB | | + +---------+ + + + + +---------+ + + | Performing | Address | City/State/Zipcode | Phone Number | | Organization | | | | + +---------+ + + | EXTERNAL LAB | | | | + +---------+ + + External Lab: Carbon Dioxide (10/20/2018) + +-------+ + + + | Component | Value | Ref Range | Performed | Pathologist | | | | | At | Signature | + +-------+ + + + | Carbon | 27 | 21 - 32 | EXTERNAL | [...] + +---------+ + + External Lab: Chloride (10/20/2018) + +---------+ + + + | Component | Value | Ref Range | Performed | Pathologist | | | | | At | Signature | + +---------+ + + + | Chloride, | 108 (A) | 98 - 107 | EXTERNAL | | | External | | | LAB | | + +---------+ + + + + +---------+ + + | Performing | Address | City/State/Zipcode | Phone Number | | Organization | | | | + +---------+ + + | EXTERNAL LAB | | | | + +---------+ + + External Lab: Potassium (10/20/2018) + +---------+ + + + | Component | Value | Ref Range | Performed | Pathologist | | | | | At | Signature | + +---------+ + + + | Potassium, | 5.4 (A) | 3.5 - 5.1 | EXTERNAL | | | External | | | LAB | | + +---------+ + + + + +---------+ + + | Performing | Address | City/State/Zipcode | Phone Number | | Organization | | | | + +---------+ + + | EXTERNAL LAB | | | | + +---------+ + + External Lab: Sodium (10/20/2018) + +-------+ + + + | Component | Value | Ref Range | Performed | Pathologist | | | | | At | Signature | + +-------+ + + + | Sodium, | 140 | 133 - 145 | EXTERNAL | | | External | | | LAB | | + +-------+ + + + + +---------+ + + | Performing | Address | City/State/Zipcode | Phone Number | | Organization | | | | + +---------+ + + | EXTERNAL LAB | | | | + +---------+ + + External Lab: CBC (10/20/2018) + +-------+ + + + | Component | Value | Ref Range | Performed | Pathologist | | | | | At | Signature | + +-------+ + + + | Neutrophils | 6.7 | 1.2 - 7 | EXTERNAL | | | , Absolute, | | | LAB | | | External | | | | | + +-------+ + + + | Lymphocytes | 1.3 | 0.6 - 3.4 | EXTERNAL | | | , Absolute, | | | LAB | | | External | | | | | + +-------+ + + + | Monocytes, | 0.8 [...] | + +---------+ + + External Lab: Cholesterol, LDL (10/20/2018) + +-------+ + + + | Component | Value | Ref Range | Performed | Pathologist | | | | | At | Signature | + +-------+ + + + | LDL | 31 | 0 - 130 | EXTERNAL | | | Cholesterol | | | LAB | | | , Direct, | | [...] + +---------+ + + External Lab: eGFR (10/20/2018) + + + + + + | Component | Value | Ref Range | Performed | Pathologist | | | | | At | Signature | + + + + + + | eGFR, | 28.9 (A) | 60 | EXTERNAL | | [...] + +---------+ + + External Lab: Creatinine (10/20/2018) + +---------+ + + + | Component | Value | Ref Range | Performed | Pathologist | | | | | At | Signature | + +---------+ + + + | Creatinine, | 2.3 (A) | 0.8 - 1.5 | EXTERNAL [...] | | + +---------+ + + CBC with Differential (10/20/2018) + + + + + + | Component | Value | Ref Range | Performed | Pathologist | | | | | At | Signature | + + + + + + | MCH | 29.7 | 27.0 - 31.0 pg | | | + + + + + + | MCHC | 30.5 (A) | 32.0 - 36.0 | | | | | | g/dL | | | + + + + + + | % Basophils | 0.3 | 0.0 - 2.0 % | | | + + + + + + + + | Specimen | + + | Blood | + + External Lab: CBC (10/20/2018) + + + + + + | Component | Value | Ref Range | Performed | Pathologist | | | | | At | Signature | + + + + + + | Neutrophils | 74.9 (A) | 44 - 74 | EXTERNAL | | | %, | | | LAB | | | External | | | | | + + + + + + | Lymphocytes | 14.2 (A) | 15 - 42 | EXTERNAL | | | %, | | | LAB | | | External | | | | | + + + + + + | Monocytes | 9.1 | 4 - 13 | EXTERNAL | | | %, External | | | LAB | | + + + + + + | Eosinophils | 0.9 | 0 - 7 | EXTERNAL | [...] + +---------+ + + External Lab: CBC (10/20/2018) + +-------+ + + + | Component | Value | Ref Range | Performed | Pathologist | | | | | At | Signature | + +-------+ + + + | WBC, | 8.9 | 3 - 10.6 | EXTERNAL | | | External | | | LAB | | + +-------+ + + + | HGB, | 12.7 | 11.8 - 17.1 | EXTERNAL | | | External | | | LAB | | + +-------+ + + + | HCT, | 41.6 | 36 - 51 | EXTERNAL | | | External | | | LAB | | + +-------+ + + + | PLT, | 208 | 150 - 400 | EXTERNAL | | | External | | | LAB | | + +-------+ + + + | RBC, | 4.28 | 3.86 - 5.7 | EXTERNAL | | | External | | | LAB | | + +-------+ + + + | MCV, | 97 | 81 - 102 | EXTERNAL | | | External | | | LAB | | + +-------+ + + + | RDW, | 15.6 | 11.2 - 16.2 | EXTERNAL | [...]
--- OUTSIDE RECORDS SUMMARY | ~2020-03-04 | XMS | Encounter Summary ---
Demographics + + + | Address | [address] | | | [place] [address] | + + + | Home Phone | | + + + | Preferred Language | Unknown | + + + | Marital Status | | + + + | Zoroastrian Affiliation | NRP | + + + [...] | | | | | [place] [address] | | + + + + + Care Team Providers + +------+ + | Care Epic Cadence Specialists Name | Role | Phone | + +------+ + | Chato Matson MD | PCP | | + +------+ + Encounter Details +--------+ + + + + | Date | Type | Department | Care Team | Description | +--------+ + + + + | 03/19/ | Procedure | 6A Intra Op [id number] | | | | 2016 | Pass | [facility] | | | | | | [facility] | | | | | | [facility] Admitting | | | | | | Desk Located on the | | | | | | 9th floor | | | | | | [place], [place] | | | | | | [address] | | | +--------+ + + + [...]
--- OUTSIDE RECORDS SUMMARY | ~2020-03-04 | XMS | Encounter Summary ---
Demographics + + + | Address | [address] | | | [place] [address] | + + + | Home Phone [...] [place], [place] | | | | | [address] | | + + + + + Care Team Providers + +------+ + | Care Engineering Secretary Name | Role | Phone | [...] | | involving | [address] [place] | | | | | [place] | [address] | [place] | | | | | coronary | [address] | [address] | | | | | artery of | Phone: | Phone: | | | | | [place] heart | [phone] | [phone] | | | | | without | Fax: | Fax: | | | | | angina | [phone] | [phone] | | | | | pectoris | | | +--------+ + + + + + Encounter Details +--------+---------+ + + + | Date | Type | Department | Care Team | Description | +--------+---------+ + + + | 10/07/ | Office | [facility] | Carolina Lindarisa, | Coronary artery | | 2019 | Visit | [facility] | MD [address] | disease, angina | | | | [facility] [place], | presence | | | | [address] [place] | [place] [address] | unspecified, | | | | [place] [address] | [phone] | unspecified vessel | | | | [phone] | | or lesion type, | | | | | | unspecified whether | | | | | | [place] or | | | | | | [...] of this encounter Progress Gael Ortega - 10/07/2018 10:00 AM PST [facility] [address] [place] [address] Cardiac Rehab 60 Day Review Date: 10/07/2018 Patient Information Patient Name: oBb Will Date of : 1955 Age: 62 y.o. Referring Provider: Randy Figueroa MD Encounter Diagnoses Code Name Primary? I25.10 Coronary artery disease, angina presence unspecified, unspecified vessel or lesi on type, unspecified whether [place] or transplanted heart Yes Z98.61 Post PTCA Cardiac Rehab Phase II Leon atment Plan Bob Will (Bob) is a 62 y.o. 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 on 10/17/2017. He has recently increased his [...] Heart Failure book Date received: 04/22/18 Gildardo rget Goal(s) Aerobic- moderate intensity activity 30 [...] control. Also began walking with his around [employer] 3 days a week along with chasing [...] Healthy Dietary Education Date: 08/03/18 -Referral to Engineering Illustrator: Date: -DVD: Healthy Eating For Life Date: [...] exercise until stable. Date: Range: -Referral to Custodian Blood Bank Date: Education Points listed below- Date Completed: [...] Gael Woo, 10/07/2018 12:40 Patient Name: Bob Will/: 1955/ ly signed by Randy Figueroa MD at 10/07/2018 2:55 PM PSTdocumented in this encounter Plan of Treatment +--------+ + + + + | Date | Type | Specialty | Care Team | Description | +--------+ + + + + | 03/12/ | Office | Nephrology | Litzy, | | | 2019 | Visit | | [address] | | | | | | [address] | | | | | | [address] [place] | | | | | | [address] | | | | | | | | +--------+ + + + + | 04/16/ | Office | Cardiology | Alin Anderson | | | 2019 | Visit | | MD [address] | | | | | | [address] | | | | | | [place] [address] | | | | | | [phone] | | | | | | | [...] [place] | | | | | | [address] | | | | | | | | +--------+ + + + + documented as of this encounter Visit Diagnoses + + | Diagnosis | + + | Coronary artery disease, angina presence unspecified, unspecified vessel or lesion | | type, unspecified whether [place] or transplanted heart - Primary | + + | Post PTCA Postsurgical percutaneous transluminal coronary angioplasty status | + + documented in this encounter
--- OUTSIDE RECORDS SUMMARY | ~2020-03-04 | XMS | Encounter Summary ---
Demographics + + + | Address | [address] | | | [place] [address] | + + + | Home Phone [...] [place] | | | | | [address] | | + + + + + Care Team Providers + +------+ + | [facility] Supervisor Name | Role | Phone | [...] | | | | (moderate) | [place] [address] | [place] [address] | | | | | (HCC) | Phone: | Phone: | | | | | Procedures | [phone] | [phone] | | | | | IN OFFICE | Fax: | Fax: | | | | | OUTPATIENT | [phone] | [phone] | | | | | VISIT 25 [...] + + | 06/06/ | Office | [facility] [place] | [place], | Chronic kidney | | 2019 | Visit | NEPHROLOGY [address] | [address] | disease, stage IV | | | | [address] | [address] | (severe) (HCC) | | | | [place], [place] | [address] [place] | (Primary Dx); | | | | [address] | [address] | Hypertension, renal | | | | [phone] | | disease, stage 1-4 | | [...] -coronary artery disease post recent anterior wall DC, post PTCA and stents of the left romero n, LAD and LCx on 03/15/17 -ischemic cardiomyopathy, CLAMMER-D placement in [facility] on 10/17/2017; LVEF 30-35% -"borderline" type 2 diabetes mellitus -serum creatinine 1.5 mg/dl 2016; 1.5-2 mg/dl 2018; 2.1-2.7 mg/dl 2018; currently 3 mg/dl Ashok reports that he has been feeling fine. No lightheadedness or dizziness. Home blood pres sure has been usually 80s mmHg systolic, but ranges 85-102/65-70. He says that he will be se smitang a fisher diving in [facility] in June, transferring care from [facility] ioly team. He says that he gets [...] Diagnosis Date Noted PAD (peripheral artery disease) ([facility]) Priority: High Note Last Updated: 01/06/2018 Segmental pressures 11/24/17 Abnormal left ankle brachial index of 0.91 consistent with s gurvinder segment disease. Chronic systolic CHF (congestive heart failure) ([facility]) 06/02/2019 Chronic kidney disease, stage III (moderate) ([facility]) 03/10/2019 Hypertension, renal disease, stage 1-4 or unspecified chronic kidney disease 03/10/2019 Secondary hyperparathyroidism ([facility]) 03/10/2019 Anemia in stage 3 chronic kidney disease ([facility]) 03/10/2019 Fatigue 09/17/2018 Note Last Updated: [...] Rhinorrhea 08/13/2018 COPD (chronic obstructive pulmonary disease) ([facility]) 05/14/2018 Dyspnea 05/01/2018 Actinic keratosis 04/14/2018 Basal cell carcinoma of lower extremity 04/14/2018 Benign neoplasm of skin 04/14/2018 Hypercholesterolemia 04/14/2018 Metabolic syndrome X 04/14/2018 Neoplasm of uncertain behavior of skin of trunk 04/14/2018 Polyp of colon 04/14/2018 GERD (gastroesophageal reflux disease) 11/12/2017 CLAMMER-D (AICD) Medtronic 10/16/17 [facility] Wilner 10/19/2017 Note Last Updated: 11/11/2017 MODEL NAME MODEL# SERIAL# DATE IMPLANTED GENERATOR Medtronic [id number] 10/16/17 RV LEAD Medtronic [id number] 10/16/17 A LEAD Medtronic [id number] 10/16/17 Coronary Sinus LEAD Medtronic [id number] 10/16/17 Indication: ischemic cardiomyopathy with reduced EF [...] 05/26/2017 Note Last Updated: 04/05/2018 S/P Medtronic CLAMMER-D 10-16-17 Dr Darby, [facility] Pet Scan 10/13/17 shows No Significant tracer [...] continued to deteriorate. Coronary artery disease involving eek coronary artery of eek heart without angina pectoris 04/06/2017 Note Last [...] with normal respiratory collapse. Acute anterior wall DC (HCC) 04/03/2017 Note Last Updated: 10/20/2017 Transthoracic [...] mg by mouth Daily. Cholecalciferol (VITAMIN D-3) 88834 units CAPS Take by mouth Once a [...] | | | | | [address] [place], [place] | | | | | | [address] | | | | | | | | +--------+ + + + + | 04/16/ | Office | Cardiology | lAin Anderson | | 2019 | Visit | | MD [address] | | | | | | [address] | | | | | | [place] [address] | | | | | | [phone] | | | | | | | [...] [place] | | | | | | [address] | | | | | | | [...] 1.001 - 1.030 | | | | [place], | | | | | | [facility], [...]
--- OUTSIDE RECORDS SUMMARY | ~2020-03-04 | XMS | Encounter Summary ---
Demographics + + + | Address | [address] | | | [place] [address] | + + + | Home Phone [...] [place] | | | | | [address] | | + + + + + Care Team Providers + +------+ + | Care Director Transportation Name | Role | Phone | + [...] | | involving | [address] | [place] | | | | | [place] | [place], [place] | [place], [place] | | | | | coronary | [address] | [address] | | | | | artery of | Phone: | Phone: | | | | | asa[place] heart | [phone] | [phone] | | | | | without | Fax: | Fax: | | | | | angina | [phone] | [phone] | | | | | pectoris | | | +--------+ + + + + + Encounter Details +--------+---------+ + + + | Date | Type | Department | Care Team | Description | +--------+---------+ + + + | 10/12/ | Office | [facility] | Randy Figueroa, | Coronary artery | | 2019 | Visit | MED CTR CARDIAC | MD [address] | disease, angina | | | | REHABILITATION [address] [place], | presence | | | | [address] [place] | [place] [address] | unspecified, | | | | [place] [address] | [phone] | unspecified vessel | | | | [phone] | | or lesion type, | | | | | | unspecified whether | | | | | | [place] or | | | | | | [...] of this encounter Progress Gael Ortega - 10/12/2018 10:00 AM PST [facility] CARDIAC REHABILITATION [address] [place] [address] Cardiac Rehab Date: 10/12/2018 Patient Information Patient Name: Bob Will Date of : 1955 Age: 62 y.o. Encounter Diagnoses Code Name Primary? I25.10 Coronary artery disease, angina presence unspecified, unspecified vessel or lesi on type, unspecified whether asa[place] or transplanted heart Yes Z98.61 Post PTCA [...] 10/12/2018 14:13 Patient Name: Bob Will/: 1955/ ly signed by Gael Woo at 10/12/2018 2:16 PM PSTdocumented in this encounter Plan of Treatment +--------+ + + + + | Date | Type | Specialty | Care Team | Description | +--------+ + + + + | 03/12/ | Office | Nephrology | [facility], | | | 2019 | Visit | [...] | | | | | | [place] [address] | | | | | | [phone] | | | | | | | [...] [place] | | | | | | [address] | | | | | | | | +--------+ + + + + documented as of this encounter Visit Diagnoses + + | Diagnosis | + + | Coronary artery disease, angina presence unspecified, unspecified vessel or lesion | | type, unspecified whether asa'carsarmiut or transplanted heart - Primary | + + | Post PTCA Postsurgical percutaneous transluminal coronary angioplasty status | + + documented in this encounter"
--- OUTSIDE RECORDS SUMMARY | ~2020-03-04 | XMS | Encounter Summary ---
Demographics + + + | Address | [address] | | | [place] [address] | + + + | Home Phone [...] [place] | | | | | [address] | | + + + + + Care Team Providers + +------+ + | Care V Block Saw Operator Name | Role | Phone [...] | | | | | disease, | [address] | [address] | | | | | angina | [place], | [place] | | | | | presence | [place] [address] | [place], [place] | | | | | unspecified, | Phone: | [address] | | | | | unspecified | [phone] | Phone: | | | | | vessel or | Fax: | [phone] | | | | | lesion type, | [phone] | Fax: | | | | | unspecified | | [phone] | | | | | whether | | | | | | | grindstone or | | | | | | | transplanted | | | | | | | heart Post | | | | | | | PTCA | | | | | | | Procedures | | | | | | | MI | | | | | | [...] + + | 08/03/ | Office | [facility] | Randy Figueroa, | Coronary artery | | 2018 | Visit | MED CTR CARDIAC | [address] [facility] | disease, angina | | | | REHABILITATION [address] | [address] [place], | presence | | | | [address] [place] | [place] [address] | unspecified, | | | | [place] [address] | [phone] | unspecified vessel | | | | [phone] | | or lesion type, | | | | | Maria Esther Fields RN | unspecified whether | | | | | | grindstone or | | | | | | [...] Fields RN - 08/03/2018 9:15 AM PST [facility] C[facility]ILITATION [address] [facility] [address] Cardiac Rehab Evaluation Date: 08/03/2018 Patient Information Patient Name: Bob Will Date of : 1955 Age: 62 y.o. Referring Provider: Randy Figueroa MD Encounter Diagnoses Code Name Primary? I25.10 Coronary artery disease, angina presence unspecified, unspecified vessel or lesi on type, unspecified whether grindstone or transplanted heart Z98.61 Post PTCA Cardiac Rehab Phase II Leon atment Plan Bob Will (Bob) is a 62 y.o. 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 He has recently increased his [...] Healthy Dietary Education Date: 08/03/18 -Referral to Asset Management Lead: Date: -DVD: Healthy Eating For Life Date: [...] exercise until stable. Date: Range: -Referral to Geothermal Electrical Engineer Date: Education Points listed below- Date Completed: [...] | | | | | [facility] | | | | | | [address] | | | | | | [address] | | | | | | | | +--------+ + + + + | 04/16/ | Office | Cardiology | Alin Anderson | | 2019 | Visit | | MD Cheryl Arreguin | | | | | | [address] | | | | | | [place] [address] | | | | | | [phone] | | | | | | | [...] [place] | | | | | | [address] | | | | | | | | +--------+ + + + + documented as of this encounter Visit Diagnoses + + | Diagnosis | + + | Coronary artery disease, angina presence unspecified, unspecified vessel or lesion | | type, unspecified whether grindstone or transplanted heart | + + | Post PTCA Postsurgical percutaneous transluminal coronary angioplasty status | + + documented in this encounter
--- OUTSIDE RECORDS SUMMARY | ~2020-03-04 | XMS | Encounter Summary ---
Demographics + + + | Address | [address] | | | [place] [address] | + + + | Home Phone | | + + + | Preferred Language | Unknown | + + + | Marital Status | | + + + | Protestant Affiliation | Unknown | + + + | Race | Unknown | + + + | Ethnic Group | Unknown | + + + Author + + + | Author | [facility] | | | and [place] | + + + | Organization | [facility] | | | and [place] | + + + | Address | Unknown | + + + | Phone | Unavailable | + + + Support + + + + + | Name | Relationship | Address | Phone | + + + + + | [place] Will | ECON | [place] | | | | | [address] | | + + + + + Care Team Providers + +------+ + | Care Schedule Analyst Name | Role | Phone | [...] + + | 08/02/ | [facility] | Amy Olivares V, | Chronic systolic CHF | | 2019 | Visit | MED CTR CARDIAC | MD [address] | (congestive heart | | | | REHABILITATION [address] | [address] [place], [place] | failure) (HCC) | | | | [address] | [address] | (Primary Dx) | | | | [place] [address] | | | | | | [phone] | | | +--------+---------+ + + + [...] of this encounter Progress Notes Kathy Garcia, SUPERVISOR JEWELRY DEPARTMENT - 08/02/2019 12:00 PM PSTFormatting of this note might be different f rom the original. 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 Date: Range: -Referral to Executive Director Global Brand Marketing Date: Education Points listed below- Date Completed: [...] | | | | | [facility] | | | | | | [address] | | | | | | [address] | | | | | | | | +--------+ + + + + | 04/16/ | Office | Cardiology | Alin Anderson | | | 2019 | Visit | | MD Cheryl Arreg[address] | | | | | | [address] | | | | | | [place] [address] | | | | | | [phone] | | | | | | | [...] [place] | | | | | | [address] | | | | | | | | +--------+ + + + + documented as of this encounter Visit Diagnoses + + | Diagnosis | + + | Chronic systolic CHF (congestive heart failure) (HCC) - Primary | + + documented in this encounter
--- OUTSIDE RECORDS SUMMARY | ~2020-03-04 | XMS | Encounter Summary ---
Demographics + + + | Address | [address] | | | [place] [address] | + + + | Home Phone [...] [place], [place] | | | | | [address] | | + + + + + Care Team Providers + +------+ + | Care Integration Specialist Name | Role | Phone | [...] Ischemic | MD Lauren | [address] | | | | | cardiomyopat | [address] | [place], | | | | | hy | [address] | [place] | | | | | Procedures | [place], | [address] | | | | | ECHO | [place] [address] | Phone: | | | | | Complete [place] | Phone: | [phone] | | | | | ECHO HEART | [phone] | Fax: | | | | | [facility] | Fax: | [phone] | | | | | [address] | [phone] | | | | | | [place] | | | | | | | [...] Ischemic | MD Lauren | [address] | | | | | cardiomyopat | [address] | [place], | | | | | hy | [address] | [place] | | | | | Procedures | [place], | [address] | | | | | ECHO | [place] [address] | Phone: | | | | | Complete [place] | Phone: | [phone] | | | | | ECHO HEART | [phone] | Fax: | | | | | [facility] | Fax: | [phone] | | | | | [address] | [phone] | | | | | | [place] | | | | | | | [...] + + | 04/02/ | Hospital | [facility] | Lauren Figueroa, | Ischemic | | 2018 | Encounter | MED CTR ECHO [address] | MD [address] | cardiomyopathy | | | | [address] [place] | [address] [place], | | | | | [place] [address] | [place] [address] | | | | | [phone] | [phone] | | | | | | | | | | | | Clarita Tena | | | | | | A, Technologist | | | | | | [place], [place] | | | | | | [address] | | +--------+ + + + + [...] 0 | | | | (VITAMIN D-3) [address] | mouth Once a week. | | [...] +---------+ + + | lisinopril | Take 1 [...] | | | | [address] [place] | | | | | | [id number] | | | | | | | | +--------+ + + + + | 04/16/ | Office | Cardiology | Alin Anderson | | | 2019 | Visit | | MD [address] | | | | | | [address] | | | | | | [place] [address] | | | | | | [phone] | | | | | | | [...] [place] | | | | | | [address] | | | | | | | [...] for this | | | e | 9:00 AM | cardiomyopathy | procedure are in [...] MIKE | | | RON Room Number Neena Patient Number | | | [id number] Date of Study 04/02/2018 Visit | | | Number [id number] Referring | | | Physician CAROLINA AGUILAR Number Date of 1955 | | | Billing And Quality Technician FRANNIE ISAACS [facility] Age | | | 62 year(s) Interpreting CAROLINA AGUILAR | | | Tobacco Feeder Catcher | | | LAUREN FIGUEROA, | | | Gender Male | | | Nurse | | | Stress Computer Numerical Control Programmer Procedure Type of Study TTE procedure: ECHO [...] 1 cm PW Diastolic: 0.9 cm EF Ammncopno78% EF | | | Calculated: 32% Miscellaneous [...] Diastolic: 0.9 cm | | | EF Vfgdooffo68% | | | EF Calculated: 32% | | | | | | Miscellaneous | | | | | | Aorta | | | | | | Aortic Root: 3.4 cm | | | | | + + --+ + + | Procedure Note | + + | Sebastian, Rad Results In - 04/05/2018 10:13 AM PDT Transthoracic Echocardiography Report | | (TTE) Demographics Patient Name MIKE VELASQUEZ Room Number Neena Patient | | Number [id number] Date of Study 04/02/2018 Visit Number [id number] | | Referring Physician CAROLINA AGUILAR Number Date of | | 1955 Billing And Quality Technician FRANNIE ISAACS LORENZO Age 62 | | year(s) Interpreting CAROLINA AGUILAR | | Tobacco Feeder Catcher LAUREN FIGUEROA, | | Gender Male Nurse [...] 1 cm PW Diastolic: 0.9 cm EF Fglaspdzj92% EF Calculated: 32% Miscellaneous | | Aorta [...] PW Diastolic: 0.9 cm | | EF Rgfwsmrjh31% | | EF Calculated: 32% | | [...]
--- OUTSIDE RECORDS SUMMARY | ~2020-03-04 | XMS | Encounter Summary ---
Demographics + + + | Address | [address] | | | [place] [address] | + + + | Home Phone [...] [place] | | | | | [address] | | + + + + + Care Team Providers + +------+ + | Care Shell Mold Bonder Name | Role | Phone | + [...] Description | +--------+---------+ + + + | 09/29/ | Office | [facility] | Amy Olivares V, | Chronic systolic CHF | | 2020 | Visit | MED CTR CARDIAC | MD [address] | (congestive heart | | | | REHABILITATION [address] | [address] [place], [place] | failure) ([facility]) | | | | [address] | [address] | (Primary Dx) | | | | [place] [address] | | | | | | [phone] | | | +--------+---------+ + + + [...] this encounter Progress Notes Gael Woo - 09/29/2019 9:00 AM PSTPatient tolerated exercise session without [...] [place] | | | | | | [address] | | | | | | | | +--------+ + + + + | 04/16/ | Office | Cardiology | Alin Anderson | | | 2019 | Visit | | MD [address]yl [address] | | | | | | [address] | | | | | | [place] [address] | | | | | | [phone] | | | | | | | [...] [place] | | | | | | [address] | | | | | | | | +--------+ + + + + documented as of this encounter Visit Diagnoses + + | Diagnosis | + + | Chronic systolic CHF (congestive heart failure) (HCC) - Primary | + + documented in this encounter"
--- OUTSIDE RECORDS SUMMARY | ~2020-03-04 | XMS | Encounter Summary ---
Demographics + + + | Address | [address] | | | [place] [address] | + + + | Home Phone | | + + + | Preferred Language | Unknown | + + + | Marital Status | | + + + | Confucianist Affiliation | NRP | + + + | Race | White | + + + | Ethnic Group | Not or | + + + Author + + + | Author | [facility] | + + + | Organization | [facility] | + + + | Address | Unknown | + + + | Phone | Unavailable | + + + Support + + + + + | Name | Relationship | Address | Phone | + + + + + | Venice Mckeon | ECON | [address] | | | | | [place] [address] | | + + + + + Care Team Providers + +------+ + | Care Compound Finisher Name | Role | Phone | [...] Rocha | | | | | [facility] | [facility] | | | | | Hospital Admitting | [place] [address] | | | | | Desk Located on the | [phone] | | | | | 9th floor | | | | | | [place], [place] | | | | | | [address] | | | +--------+---------+ + + + [...] follow up ludmila miller with a local web site project manager in [place]. #Acute cardiogenic shock in the setting ofSTEMI [...] 44 to 32 during first day at [facility] , with addition decline to [...] (noted on o utside records). Patient on [place] 10/325 q8 as outpatient. Was receiving scheduled [...] then take 7.5 mg (one and one-h 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 tablets) daily starting 04/03/2017 Indications: JAVON thrombus, [...] Number [facility] Yes [phone] [place] [address] Medina Roger RN 04/02/2017 11:31 Medina Roger RN, 04/02/2017 11:28 AM: Spoke with Latricia, 7 day auth # [id number] has been provided. Contacted Tanisha at facility [phone], arranging anticipated medicaid transport by stretcher at 2 pm today. Spoke with patient and souse concerning dc; they are both in agreement. Medina Roger RN, 04/02/2017 9:20 AM: Contacted Latricia Landry [phone] referencing auth# for SNF placement. Medina Roger RN, 04/01/2017 11:42 AM: Spoke with Malathi [phone], at facility admissions. Patient is accepted to facility. Prov ided information for information quality lab technician with [facility] Fed Latricia Landry [phone], Tanisha moncada pursue auth and get back to me. F&MS working with patient and family to add Medicaid ser vices to benefits. When added patient will have travel benefit. CM contacted Shahab Holman re [employer] training. Tamia Van, RN, 03/30/2017 1:21 PM: Received VM from Emily Terrell CM with [facility] to send referral to this location . Referral made, awaiting response. Follow Up: Schedule the following appointment(s) when you get home Follow up with [facility] . Specialties: Penitentiary Facility, Intermediate Care Facility Contact information [address] [place] [phone] Follow up with LAUREN CHESTER MD. Go on 04/07/2017. Specialty: Cardiology Why: at 8:30 AM to establish Cardiology follow up Contact information [facility] [address] [address] Aria Rojas MD Division of Hospital Medicine [facility] [place] I spent 60 minutes on discharge activities on the day of discharge, including counseling of the patient and his regarding his discharge plan and in coordination of care on the nm rd with nursing, pharmacy, and Heart Failure.Electronically [...] ch ronic pain who was transferred to [facility] on 03/15 s/p STEMI with cardiogenic shock [...] will need Life Vest follow up with web site project manager in [place] on discharge - appr [facility] cardiology assistance with coordinating. -Will f/u further [...] hematoma, but possibly some candidal infection/intertrigo. On [place] 10/325 Q8H as an outp atient. -Continue [...] 44 to 32 during first day at [facility], with addition decline to 24 [...] MD Division of Hospital Medicine [facility] Pager [phone] I spent 36 minutes on the patient [...] ch ronic pain who was transferred to [facility] on 03/15 s/p STEMI with cardiogenic shock [...] will need Life Vest follow up with web site project manager in [place] on discharge - appr [facility] cardiology assistance with coordinating. Hyperkalemia Resolved with [...] hematoma, but possibly some candidal infection/interrigo. On [place] 10/325 Q8H as an outpa tient. -Continue [...] 44 to 32 during first day at [facility], with addition decline to 24 [...] MD Division of Hospital Medicine [facility] [place] Pager [phone] I spent 36 minutes on the patient encounter today, >50% in counseling of the patient's on the above plan of care and in coordination of care on the arizmendi with nursing and Heart Fa ilure. Ariana Ivy DO - 03/30/2017 5:49 PM PDT CLINICAL HOSPITALIST SERVICE PROGRESS NOTE PATIENT'S NAME/MRN: Ron Mckeon/[id number] HOSPITAL DAY: #15 24-HOUR EVENTS & SUBJECTIVE: -patient complained of typical anginal chest pain and had STEMI code last night, anterior S T elevation on serial EKGs, given 325mg ASA, started on heparin drip (had been turned off fo r JAVON thrombus yesterday afternoon with warfarin therapeutic), patient went to the laborer bituminous paving -on angiography, interventionalists noted "patent stent traversing [...] daily - Patient will follow up with web site project manager in [place] on discharge; appreciate cardiolo gy assistance with [...] stenosis (noted on o utside records, on [place] 10 q8 as outpatient) Improved today -continue [...] discharge. -CM looking for skilled placement in [place] near patient's home; appreciate assistance #Risk for malnutrition Very little PO intake, improving today. Previously had dobhoff feeding tube in the CVICU.Nu trition assistance appreciated. -Calorie count ongoing -Encouraging PO intake #Anemia, normocytic Pt noted to have anemia on H&P. Hct dropped abruptly from 44 to 32 during first day at [facility] , with addition decline to [...] [facility] bed Ariana Bose DO Weigh Machine Operatorwood cabinet finisher Clinical Hospitalist and Medicine Teaching Service Division of Hospital Medicine [facility] Pager [phone] [facility] DEPARTMENT: Hosp- [phone] Place of Service: - Date of Service: 03/26/2017 CSN: [id number] Modifiers:GC Resident Involved: Yes Suggested CPT: 42575 Subsequent Visit Detailed/High complexity 35 min Cristi [...] given continued elevated Tn, patient's significant recent WA, we activated the laborer bituminous paving. Patient received 325 mg ASA at bedside and was briefly on heparin which has since been disc ontinued. Per cardiology will continue daily 81 mg ASA, plavix and warfarin. Continue to t rend troponins as well. I spent 30 minutes with this patient with >50% of the time evaluating patient at the [facility] e on numerous occasions, evaluating studies and coordinating care w/ cardiology.Electronical ly signed by Ivette Chaudhry MD at 03/30/2017 6:24 AM Gerson Oseguera MD - 03/30/2017 4:31 AM PDTCardiology Preliminary Procedure Note (Full report to follow) Primary Care Provider: Jamal Guerrero MD Referring Provider: No Referring Provider Per Patient Assembler Erector Staff: Katarina Ngo M.D. Procedure(s): Coronary Angiography [...] Complications: None Hemostasis: Manual compression in laborer bituminous paving. Site: [facility] Recommendations: Patient Status: Inpatient Usual post cath care. Ariana Ivy D O - 03/29/2017 9:30 AM PDT CLINICAL HOSPITALIST SERVICE PROGRESS NOTE PATIENT'S NAME/MRN: Ron Mckeon/[id number] HOSPITAL DAY: #14 24-HOUR EVENTS & SUBJECTIVE: [...] 2 Units, 2 Units, subcutaneous, [facility]12H (Scheduled[facility], 2 Units at 03/28/172206 ipratropium-albuterol (DUO-NEB) nebulizer solution 3 mL, 3 mL, inhalation, Q6H PRN, Terry Ocoha MD lidocaine (XYLOCAINE) 5 % ointment, , [...] probiotic yogurt ([employer] Y[employer]), , oral, BID, Joes Ramon Alvarado MD QUEtiapine (SEROQUEL) tablet 12.5 [...] stenosis (noted on o utside records, on [place] 10/325 q8 as outpatient) -continue oxycodone 10mg [...] 44 to 32 during first day at [facility] , with addition decline to [...] arm, midline left arm Ariana Bose DO Weigh Machine Operatorwood cabinet finisher Clinical Hospitalist and Medicine Teaching Service Division of Hospital Medicine [facility] Pager [phone] [facility] DEPARTMENT: Hosp- [id number] Place of Service: - Date of Service: 03/26/2017 CSN: [id number] Modifiers:GC Resident Involved: Yes Suggested CPT: 57003 Subsequent Visit Detailed/High complexity 35 min Ariana Ivy DO - 03/28/2017 8: 06 AM PDT CLINICAL HOSPITALIST SERVICE PROGRESS NOTE PATIENT'S NAME/MRN: Ron Mckeon/[id number] HOSPITAL DAY: #13 24-HOUR EVENTS & SUBJECTIVE: [...] stenosis (noted on o utside records, on [place] 10 q8 as outpatient) Improving L groin [...] 44 to 32 during first day at [facility] , with addition decline to [...] arm, midline left arm Ariana Bose DO Weigh Machine Operatorwood cabinet finisher Clinical Hospitalist and Medicine Teaching Service Division of Hospital Medicine [facility] Pager [phone] [facility] DEPARTMENT: Hosp- [id number] Place of Service: - Date of Service: 03/26/2017 CSN: [id number] Modifiers:GC Resident Involved: Yes Suggested CPT: 33012 Subsequent Visit Detailed/High complexity 35 min Ariana [...] tablet 50 mg, 50 mg, oral, DAILY, Jete Ramírez MD, 50 mg at 1745 famotidine [...] 44 to 32 during first day at [facility] , with addition decline to [...] Lines/drains/tubes: midline R arm, midline left arm Araina Bose DO Weigh Machine Operatorwood cabinet finisher Clinical Hospitalist and Medicine Teaching Service Division of Hospital Medicine [facility] Pager [phone] [facility] DEPARTMENT: Hosp- [phone] Place of Service: - Date of Service: 03/26/2017 CSN: [id number] Modifiers:GC Resident Involved: Yes Suggested CPT: 35138 Subsequent Visit Detailed/High complexity 35 min Chapis [...] 34 g, 34 g, oral, TID PRN, Guarav Hobbs PA-C potassium chloride (KAOCHLOR) liquid 10% [...] 44 to 32 during first day at [facility] , with addition decline to [...] arm, midline left arm Ariana Bose DO Weigh Machine Operatorwood cabinet finisher Clinical Hospitalist and Medicine Teaching Service Division of Hospital Medicine [facility] Pager [phone] [facility] DEPARTMENT: Hosp- [id number] Place of Service: - Date of Service: 03/26/2017 CSN: [id number] Modifiers:GC Resident Involved: Yes Suggested CPT: 30005 Subsequent Visit Detailed/High complexity 35 min Wan Cano MD - 03/25/2017 3:07 PM PDT . Cardiovascular Intensive Care Unit Attending Progress Note CVICU D2 Assigned #[id number] ICU Admission Reason Most Recent Value ICU [...] ANY X2 placed in outs surinder laborer bituminous paving along with IABP. Arrived in cardiogenic shock, [...] Pager Mellisa Haji MD Admitting Provider Cardiology 17960 Zelalem Del Toro MD ICU PM Attending Anesthesiology 57746 Code Status Code Status Full Code The Advanced Care Note for this patient can be found under the notes tab in chart review. Quality section Reardon necessity reviewed: Hourly/Accurate measurement of urinary output for clinical manage ment of critically ill patients Wan Deleon MD, JOHN, ERVIN Cardiovascular Intensive Care Unit [address] [address] I have spent a total of 38 [...] ICU CARDIAC Place of Service:- Inpatient CSN: [id number] Suggested Modifier: GC - Resident Involved Suggested CPT: TO FOREST SCIENTIST Pal Khan Md - 03/24/2017 10:54 AM PDT Cardiovascular Intensive Care Unit Team Progress Note CVICU D2 Assigned #[id number] ICU Admission Reason Most Recent Value ICU [...] ANY X2 placed in outs surinder laborer bituminous paving along with IABP. Arrived in cardiogenic shock, [...] Plan Patient went into VFib during laborer bituminous paving procedure at [facility]. Was shocked 17 times Targeted temperature [...] Patient was difficult intubation at outside laborer bituminous paving. -secretions improving, cough strong -s/p 7 days [...] Pager Mellisa Haji MD Admitting Provider Cardiology 13475 Zelalem Del Toro MD ICU PM Attending Anesthesiology 60922 The Advanced Care Note for this patient [...] Ramon Alvarado MD Author:Jose Ramon Alvarado MD [address] [address]Nekzrjdimjqrfu signed by Jose Ramon Alvarado Md at 03/24/2017 11:00 AM PDTWan Deleon MD - 03/24/2017 9:47 AM PDTFormatting of this note might be differe nt from the original. Cardiovascular Intensive Care Unit Attending Progress Note CVICU D2 Assigned #[id number] ICU Admission Reason Most Recent Value ICU [...] ANY X2 placed in outs surinder laborer bituminous paving along with IABP. Arrived in cardiogenic shock, [...] Pager Mellisa Haji MD Admitting Provider Cardiology 46012 Zelalem Del Toro MD ICU PM Attending Anesthesiology 20873 Code Status Code Status Full Code The Advanced Care Note for this patient can be found under the notes tab in chart review. Quality section Reardon necessity reviewed: Hourly/Accurate measurement of urinary output for clinical manage ment of critically ill patients Wan Deleon MD, JOHN, ERVIN Cardiovascular Intensive Care Unit [address] [address] I have spent a total of 42 [...] of Service: 03/24/2017 [facility] DEPARTMENT: ANE ICU CARDIAC Place of Service:- Inpatient CSN: [id number] Suggested Modifier: GC - Resident Involved Suggested CPT: TO FOREST SCIENTIST Author:Wan Deleon Md, MD [address] [address]Mefjbsxabbloxx signed by Wan Deleon MD at 03/24/2017 9:49 AM PDTToTamia lieberman PA-C - 03/23/2017 11:54 PM PDTFormatting of this note might be diff erent from the original. Cardiovascular Intensive Care Unit Clinical Update Note Team: D2 Team Pager: [phone] Attending: Katey Pt Name: Ron Mckeon ID: [...] ANY X2 placed in outs surinder laborer bituminous paving along with IABP. Arrived in cardiogenic shock, [...] Unit Team Progress Note CVICU D2 Assigned #[id number] ICU Admission Reason Most Recent Value ICU [...] ANY X2 placed in outs surinder laborer bituminous paving along with IABP. Arrived in cardiogenic shock, [...] Plan Patient went into VFib during laborer bituminous paving procedure at [facility]. Was shocked 17 times Targeted temperature [...] Patient was difficult intubation at outside laborer bituminous paving. -fevering nightly, cultures negative, WBC stable -secretions [...] Pager Mellisa Haji MD Admitting Provider Cardiology 65422 The Advanced Care Note for this patient [...] Ramon Alvarado MD Author:Jose Ramon Alvarado MD [address] [address] [place] [address]Pjtpiqypqjbzpa signed by Jose Ramon Alvarado Md at 03/23/2017 11:41 AM Wan Cano MD - 03/23/2017 9:51 AM PDTFormatting of this note might be differe nt from the original. Cardiovascular Intensive Care Unit Attending Progress Note CVICU D2 Assigned #[id number] ICU Admission Reason Most Recent Value ICU [...] ANY X2 placed in outs surinder laborer bituminous paving along with IABP. Arrived in cardiogenic shock, [...] Pager Mellisa Haji MD Admitting Provider Cardiology 79312 Code Status Code Status Full Code The Advanced Care Note for this patient can be found under the notes tab in chart review. Quality section A-Line necessity reviewed: Plan to DC today Reardon necessity reviewed: Hourly/Accurate measurement of urinary output for clinical manage ment of critically ill patients Currently at risk for: delirium, stroke, WA, arrythmia, tamponade, PE, respiratory failure, ARDS, aspiration, AYLIN / ARF, coagulopathy, DVT, stress ulcers, sepsis, BONIFACIO, electrolyte per turbations, malnutrition, deconditioning and decubiti. Wan Deleon MD, JOHN, ERVIN Cardiovascular Intensive Care Unit [address] [address] I have spent a total of 44 [...] of Service: 03/23/2017 [facility] DEPARTMENT: [facility] ICU CARDIAC Place of Service:- Inpatient CSN: [id number] Suggested Modifier: GC - Resident Involved Suggested CPT: TO FOREST SCIENTIST Tamia De La Paz PA-C - 03/22/2017 7:58 PM PDT . Cardiovascular Intensive Care Unit Clinical Update Note Team: D2 Team Pager: [phone] Attending: Abdulaziz Merrill Name: Ron Mckeon ID: [...] Unit Attending Progress Note CVICU D2 Assigned #[id number] ICU Admission Reason Most Recent Value ICU [...] long tobacco abuse history, presenting with acute WA and STEMI, resu ltant cardiogenic shock refractory [...] Pager Mellisa Haji MD Admitting Provider Cardiology 39031 Code Status Code Status Full Code Quality section A-Line necessity reviewed: Zfhv-ev-kvgl blood pressure monitoring Reardon necessity reviewed: Hourly/Accurate [...] Date of Service: 03/22/2017 Author:Anurag Ashby MD [address] [id number] signed by Anurag Ashby MD at 03/22/2017 11:07 AM P Macho Sellers MD - 03/22/2017 11:00 AM PDT Cardiovascular Intensive Care Unit Team Progress Note CVICU D2 Assigned #[id number] ICU Admission Reason Most Recent Value ICU [...] Plan Patient went into VFib during laborer bituminous paving procedure at [facility]. Was shocked 17 times Targeted temperature [...] Patient was difficult intubation at outside laborer bituminous paving. -vanc zosyn stopped 03/17 -fever 38.3 last [...] Pager Mellisa Haji MD Admitting Provider Cardiology 31292 This patient does not have an Advanced Care Note for this Admission. Please use the Goal of care section of your ICU navigator to document the advanced care discussion. Quality section A-Line necessity reviewed: Mrqg-eg-tkqe blood pressure monitoring Reardon necessity reviewed: Hourly/Accurate measurement of urinary output for clinical manage ment of critically ill patients FAST HUG Feeding: Tube Feeds: Replete @ 55 mL/hr Analgesia: APAP, hydromorphone PRN Sedation: N/A Thromboprophylaxis: Heparin infusion Head of Bed: Head of Bed >30 degrees Ulcer Prophylaxis: Famotidine Glycemic Control: insulin infusion Created by Macho Gaytan MD Author:Macho Gaytan MD [address] [address]Fddajqadlgksmo signed by Macho Gaytan MD at 03/23/2017 12:35 PM PDTT Tamia leon PA-C - 03/21/2017 7:02 PM PDTFormatting of this note might be different f rom the original. Cardiovascular Intensive Care Unit Clinical Update Note Team: D2 Team Pager: [phone] Attending: Abdulaziz Merrill Name: Ron Mckeon ID: [...] Opens eyes, nods head. Follows commands for welfare adviser and Plan: Hospital Problems Priority POA Head/Neck [...] Unit Team Progress Note CVICU D2 Assigned #[id number] ICU Admission Reason Most Recent Value ICU [...] Plan Patient went into VFib during laborer bituminous paving procedure at [facility]. Was shocked 17 times Targeted temperature [...] Patient was difficult intubation at outside laborer bituminous paving. -vanc zosyn stopped 03/17 -fever 38.3 last [...] Pager Mellisa Haji MD Admitting Provider Cardiology 47536 This patient does not have an Advanced Care Note for this Admission. Please use the Goal of care section of your ICU navigator to document the advanced care discussion. Quality section A-Line necessity reviewed: Xqza-dm-wifg blood pressure monitoring CVC necessity reviewed: Hemodynamic [...] by Macho Gaytan MD Author:Macho Gaytan MD [address] [address]Rvcokuqgypjwvc signed by Macho Gaytan MD at 03/21/2017 1:43 PM PDTM Anurag coates MD - 03/21/2017 12:22 PM PDT Cardiovascular Intensive Care Unit Attending Progress Note CVICU D2 Assigned #[id number] ICU Admission Reason Most Recent Value ICU [...] long tobacco abuse history, presenting with acute WA and STEMI, resu ltant cardiogenic shock refractory [...] Pager Mellisa Haji MD Admitting Provider Cardiology 36837 Code Status Code Status Full Code Quality section A-Line necessity reviewed: Ojmp-zg-dysb blood pressure monitoring CVC necessity reviewed: Plan [...] Date of Service: 03/21/2017 Author:Anurag Ashby MD [address] [address]Emvkqjsvuesdmd signed by Anurag Ashby MD at 03/21/2017 12:22 PM P Jose Ramon Coburn Md - 03/20/2017 12:36 PM PDTFormatting of this note might be different f rom the original. Cardiovascular Intensive Care Unit Team Progress Note CVICU D2 Assigned #[id number] ICU Admission Reason Most Recent Value ICU [...] Plan Patient went into VFib during laborer bituminous paving procedure at [facility]. Was shocked 17 times Targeted temperature [...] Patient was difficult intubation at outside laborer bituminous paving. -vanc zosyn stopped 03/17 -fever 38.3 last [...] Pager Mellisa Haji MD Admitting Provider Cardiology 58768 Quality section A-Line necessity reviewed: Hege-qb-jynq blood pressure monitoring CVC necessity reviewed: Hemodynamic [...] Ramon Alvarado MD Author:Jose Ramon Alvarado MD [address] [address]Yrffwviyxhlkuf signed by Jose Ramon Alvarado Md at 03/20/2017 12:49 PM PDTMoulton, Anurag Soni MD - 03/20/2017 12:18 PM PDTFormatting of this note might be different f rom the original. Cardiovascular Intensive Care Unit Attending Progress Note CVICU D2 Assigned #[id number] ICU Admission Reason Most Recent Value ICU [...] long tobacco abuse history, presenting with acute WA and STEMI, resu ltant cardiogenic shock refractory [...] Pager Mellisa Haji MD Admitting Provider Cardiology 49371 Code Status Code Status Full Code Quality section A-Line necessity reviewed: Ynzn-jp-fgxk blood pressure monitoring CVC necessity reviewed: Medication [...] Date of Service: 03/20/2017 Author:Anurag Ashby MD [address] [address]Jxoezouemfaaiq signed by Anurag Ashby MD at 03/20/2017 12:18 PM Raul Sanders MD - 03/19/2017 11:01 PM PDT Cardiovascular Intensive Care Unit Attending Progress Note CVICU D2 Assigned #[id number] ICU Admission Reason Most Recent Value ICU [...] long tobacco abuse history, presenting with acute WA and STEMI, resu ltant cardiogenic shock refractory [...] Pager Mellisa Haji MD Admitting Provider Cardiology 40867 Code Status Code Status Full Code Quality section A-Line necessity reviewed: Nepi-kb-jlqo blood pressure monitoring CVC necessity reviewed: Hemodynamic [...] Date of Service: 03/19/2017 Author:Raul Wei MD [address] [address] [place] [address]Srvimmefgdrusn signed by Raul Wei MD at 03/19/2017 11:01 PM PDT Christiano Roche, Jose Ramon - 03/19/2017 4:49 PM PDTFormatting of this note might be different fro m the original. Cardiovascular Intensive Care Unit Team Progress Note CVICU D2 Assigned #[id number] ICU Admission Reason Most Recent Value ICU [...] Plan Patient went into VFib during laborer bituminous paving procedure at [facility]. Was shocked 17 times Targeted temperature [...] Patient was difficult intubation at outside laborer bituminous paving. -vanc zosyn stopped 03/17 -fever 38.3 03/17 [...] Pager Mellisa Haji MD Admitting Provider Cardiology 71856 Quality section A-Line necessity reviewed: Poew-cv-oszz blood pressure monitoring CVC necessity reviewed: Hemodynamic monitoring Reardon necessity reviewed: Hourly/Accurate measurement of urinary output for clinical manage ment of critically ill patients FAST HUG Feeding: TFs Analgesia: multimodal Sedation: propofol Thromboprophylaxis: Heparin infusion Head of Bed: Head of Bed >30 degrees Ulcer Prophylaxis: protonix Glycemic Control: insulin infusion Created by Jose Ramon Alvarado MD Author:Jose Ramon Alvarado MD [address] [address] [place] [address]Wygansurganlff signed by Jose Ramon Alvarado Md at 03/19/2017 4:54 PM Lee Fernandez MD - 03/19/2017 2:22 PM PDT . Extracorporeal Life Support Service Daily Progress Note Pager #[phone] Type: Veno-Arterial (CPT 57950 or [phone]) Date of insertion: 03/15/2017 Diagnosis:Cardiogenic shock Dressing [...] Unit Attending Progress Note CVICU D2 Assigned #[id number] ICU Admission Reason Most Recent Value ICU [...] long tobacco abuse history, presenting with acute WA and STEMI, resu ltant cardiogenic shock refractory [...] Pager Mellisa Haji MD Admitting Provider Cardiology 48402 Code Status Code Status Full Code Quality section A-Line necessity reviewed: Pxza-vw-epgd blood pressure monitoring CVC necessity reviewed: Medication [...] Date of Service: 03/19/2017 Author:Anurag Ashby MD [place] [address] P Jose Ramon Coburn Md - 03/18/2017 12:56 PM PDTFormatting of this note might be different f rom the original. Cardiovascular Intensive Care Unit Team Progress Note CVICU D2 Assigned #[id number] ICU Admission Reason Most Recent Value ICU [...] to reduce afterload Discussed possible removal tomorrow (ahl) or (obdulio) pm STEMI (ST elevation myocardial [...] Plan Patient went into VFib during laborer bituminous paving procedure at [facility]. Was shocked 17 times Targeted temperature [...] Patient was difficult intubation at outside laborer bituminous paving. -vanc zosyn stopped today Abnormal CK Unknown [...] no wheezes No respiratory distress. Coarse lung curits nds bilaterally Abdominal: There is no guarding He exhibits distention. He exhibits no mass. Abdomen more tense and distended today. Neurological: RASS -4. Doll's eyes present bilaterally Skin: Skin is warm. No mottling of distal extremities. Duskiness of L hallux improved. Service Cardiology [1024] Admitting provider and ICU treatment team members Provider Role Specialty Pager Mellisa Haji MD Admitting Provider Cardiology 62325 Quality section A-Line necessity reviewed: Ngoo-kj-myso blood pressure monitoring CVC necessity reviewed: Hemodynamic monitoring Reardon necessity reviewed: Hourly/Accurate measurement of urinary output for clinical manage ment of critically ill patients FAST HUG Feeding: trickle feeds Analgesia: multimodal Sedation: propofol Thromboprophylaxis: Heparin infusion Head of Bed: Head of Bed >30 degrees Ulcer Prophylaxis: nexium Glycemic Control: insulin infusion Created by Jose Ramon Alvarado MD Author:Jose Ramon Alvarado MD [place] [address] [place] [address]Elnustfbfxoset signed by Jose Ramon Alvarado Md at 03/18/2017 1:27 PM PDTMoulton, Anurag Soni MD - 03/18/2017 11:56 AM PDTFormatting of this note might be different f rom the original. Cardiovascular Intensive Care Unit Attending Progress Note CVICU D2 Assigned #[id number] ICU Admission Reason Most Recent Value ICU [...] long tobacco abuse history, presenting with acute WA and STEMI, resu ltant cardiogenic shock refractory [...] Pager Mellisa Haji MD Admitting Provider Cardiology 82504 Code Status Code Status Full Code Quality section A-Line necessity reviewed: Acvq-hz-bizp blood pressure monitoring CVC necessity reviewed: Medication [...] Date of Service: 03/18/2017 Author:Anurag Ashby MD [address] [address]Iotghsyhgvfzaq signed by Anurag Ashby MD at 03/18/2017 11:59 AM Lee Prince MD - 03/18/2017 11:37 AM PDTFormatting of this note might be different from nissa suh original. . Extracorporeal Life Support Service Daily Progress Note Pager #[phone] Type: Veno-Arterial (CPT [address]17 [place] [address]) Diagnosis:Cardiogenic shock Dressing changed: no Dressing Changed [...] safe from cardiac standpoint. [facility]os [facility] - 03/17/2017 10:48 PM PDTFormatting of this note might be different from the origin al. . Extracorporeal Life Support Service Daily Progress Note Pager #[phone] Type: Veno-Arterial (CPT 84710 [place] [address]) Date of insertion: 03/15/2017 Diagnosis:Cardiogenic shock Dressing [...] Unit Attending Progress Note CVICU D2 Assigned #[id number] ICU Admission Reason Most Recent Value ICU [...] long tobacco abuse history, presenting with acute WA and STEMI, resu ltant cardiogenic shock refractory [...] Pager Mellisa Haji MD Admitting Provider Cardiology 88817 Quality section A-Line necessity reviewed: Eexc-pk-iexz blood pressure monitoring CVC necessity reviewed: Rapid [...] Date of Service: 03/17/2017 Author:Raul Wei MD [address] [address] [place] [address]Kantwfiwytssxt signed by Raul Wei MD at 03/17/2017 9:20 PM PDT Anurag Ashby MD - 03/17/2017 1:58 PM PDT Cardiovascular Intensive Care Unit Attending Progress Note CVICU D2 Assigned #[id number] ICU Admission Reason Most Recent Value ICU [...] long tobacco abuse history, presenting with acute WA and STEMI, resu ltant cardiogenic shock refractory [...] Pager Mellisa Haji MD Admitting Provider Cardiology 13364 Quality section A-Line necessity reviewed: Enjt-yv-vaes blood pressure monitoring CVC necessity reviewed: Medication [...] Date of Service: 03/17/2017 Author:Anurag Ashby MD [address] [address]Ioekjocrqlufoi signed by Anurag Ashby MD at 03/17/2017 2:00 PM P Mauri Calderon - 03/17/2017 1:01 PM PDTTransthoracic echocardiogram completed. Final r eport to follow. 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. Was shocked 17 times Targeted temperature [...] Patient was difficult intubation at outside laborer bituminous paving. -vanc zosyn stopped today Abnormal CK Unknown [...] Pager Mellisa Haji MD Admitting Provider Cardiology 29957 This patient does not have an Advanced Care Note for this Admission. Please use the Goal of care section of your ICU navigator to document the advanced care discussion. Quality section A-Line necessity reviewed: Xwjo-op-rxly blood pressure monitoring CVC necessity reviewed: Hemodynamic monitoring Reardon necessity reviewed: Hourly/Accurate measurement of urinary output for clinical manage ment of critically ill patients FAST HUG Feeding: Tube Feeds Analgesia: apap, oxy, hm Sedation: propofol Thromboprophylaxis: Heparin infusion Head of Bed: Head of Bed Flat Ulcer Prophylaxis: Pantoprazole Glycemic Control: insulin infusion Created by Teddy Kee Do, MS [facility] DEPARTMENT: ANE ICU CARDIAC Place of Service:- Inpatient CSN: [id number] Suggested Modifier: GC - Resident Involved Suggested CPT: TO FOREST SCIENTIST Author:Teddy Kee Do, MS [address] [address]Hmrtztlxifmyyd signed by Teddy Kee DO, MS at 03/17/2017 6:35 PM Raul Hanson MD - 03/16/2017 7:38 PM PDT Cardiovascular Intensive Care Unit Attending Progress Note CVICU D2 Assigned #[id number] ICU Admission Reason Most Recent Value ICU [...] long tobacco abuse history, presenting with acute WA and STEMI, resu ltant cardiogenic shock refractory [...] Pager Mellisa Haji MD Admitting Provider Cardiology 89198 Quality section A-Line necessity reviewed: Uxvo-pn-zdic blood pressure monitoring CVC necessity reviewed: Rapid [...] Date of Service: 03/16/2017 Author:Raul Wei MD [address] [address] [place] [address]Twyriwbmmuppiu signed by Raul Wei MD at 03/17/2017 11:03 AM PDT Christiano Roche, Jose Ramon - 03/16/2017 5:15 PM PDTFormatting of this note might be different fro m the original. 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. Was shocked 17 times Now on [...] Patient was difficult intubation at outside laborer bituminous paving. -bridget retana for now Physical Exam vitals [...] Pager Mellisa Haji MD Admitting Provider Cardiology 04232 Quality section A-Line necessity reviewed: Fcqg-gl-ytvs blood pressure monitoring CVC necessity reviewed: Hemodynamic [...] Ramon Alvarado MD Author:Jose Ramon Alvarado MD [address] [address]Sjxfnkrkjhvlkw signed by Jose Ramon Alvarado Md at [...] Unit Attending Progress Note CVICU D2 Assigned #[id number] ICU Admission Reason Most Recent Value ICU [...] ICU Day #2 after being transferred from [place] in [place] in acute cardiogenic archie ck following an anterior STEMI. Upon arrival to [facility], decision was made to go [...] Pager Mellisa Haji MD Admitting Provider Cardiology 54789 Quality section A-Line necessity reviewed: Sdzx-ji-akzx blood pressure monitoring CVC necessity reviewed: Hemodynamic [...] Date of Service: 03/16/2017 Author:Anurag Ashby MD [address] [address]Jpozqadcwqizrl signed by Anurag Ashby MD at 03/16/2017 1:23 PM Lee Prince MD - 03/16/2017 9:41 AM PDTFormatting of this note might be different from t vikash original. . Extracorporeal Life Support Service Daily Progress Note Pager #[phone] Type: Veno-Arterial (CPT 33211 [place] [address]) Diagnosis:Cardiogenic shock Dressing changed: no Dressing Changed [...] Clinical Update Note Team: D2 Team Pager: [phone] Attending: Abdulaziz Merrill Name: Ron Mckeon ID: [...] ICU CARDIAC Place of Service:- Inpatient CSN: [id number] Suggested Modifier: None Suggested CPT: TO FOREST SCIENTIST Mirna Berumen PA-C Everardo Valladares MD - 03/15/2017 9:04 PM PDT Cardiovascular Intensive Care Unit Attending Progress Note CVICU D2 Assigned #[id number] ICU Admission Reason Most Recent Value ICU Admission reason Cardiogenic Shock filed at 03/15/2017 1531 Hospital admission dx: left anterior descending artery occlusion, needs cabg Days in ICU Days in Hospital Medical Decision Making ICU Day #1 after being transferred from [place] in [place] in acute cardiogenic archie ck following an anterior STEMI. Upon arrival to [facility], decision was made to go [...] Pager Mellisa Haji MD Admitting Provider Cardiology 81578 Quality section A-Line necessity reviewed: Xtpy-kf-jgva blood pressure monitoring CVC necessity reviewed: Hemodynamic [...] and the recent imaging available. Seen with PA/ADJUNCT FACULTY Winston Cole. Please see their note for details. I reviewed the documented findings, all data and the recent imaging available. Date of Service: 03/15/2017 Author:Everardo Cintron MD [address] [address]Btxecveefleeks signed by Everardo Cintron MD at 03/15/2017 9:[address] - 03/15/2017 2:11 PM PDTTransthoracic echocardiogram completed. Final r eport to follow. Patrick Byrd MD,MPH - 03/15/2017 2:00 PM PDT . Extracorporeal Life Support Service Consult Service Note Pager #[phone] Date: 03/15/17 Author: Patrick Ruiz MD,MPH Consulting Attending: Mellisa Haji MD Reason for Consult: VA ECMO Consideration HPI: 61 year old male who presents this afternoon to [facility] in acute cardiogenic shock second maciej to STEMI / thrombosed L main coronary artery. He was transferred from [place]. His symptoms started this morning around 3am and was seen in [place], [place]. He was diagnosed w ith an anterior STEMI and transferred to the laborer bituminous paving in [place], [place]. He was found to h ave [...] pressors (epinephrine and dopamine). On arrival to [facility], he was in profound cardiogenic shock [...] from cardiogenic shock. Patrick Ruiz MD, MPH grain buyer Trauma, Critical Care & Acute Care Surgery [facility] Patrick Byrd MD,MPH - 03/15/2017 1:48 PM PDT . . Extracorporeal Life Support Service Initiation Note Pager #[phone] Date of service: 03/15/2017 Author: Patrick Ruiz Md,Mph ECMO Type: Veno-Arterial (CPT 84328 [place] [address]) Oxygenation index FiO2: 100 MAP: 22 Diagnosis:Cardiogenic [...] old male who presents this afternoon to [facility] in acute cardiogenic shock secondary [...] | + +--------+ + + + | DJ-PM-GTF-HB,POC RT | Routin | 03/19/2017 | ST [...] | + +--------+ + + + | ID ECMO REV | Routin | 03/19/2017 | [...] +---+--------+ + +--------+ + + + | CB-AL-ZIO-HB,POC RT | Routin | 03/19/2017 | ST [...] | + +--------+ + + + | FW-QM-LKO-HB,POC RT | Routin | 03/19/2017 | ST elevation | Results for this | | | e | 10:06 AM | myocardial | procedure are in the | | | | PDT | infarction involving | results section. | | | | | left main coronary | | | | | | artery (HCC) | | + +--------+ + + + | RX-WI-BFV-HB,POC RT | Routin | 03/19/2017 | ST [...] | + +--------+ + + + | PY-QB-TZO-HB,POC RT | Routin | 03/17/2017 | ST [...] | + +--------+ + + + | IK-CN-ZUF-HB,POC RT | Routin | 03/16/2017 | ST [...] | + +--------+ + + + | XZ-NP-MOP-HB,POC RT | Routin | 03/16/2017 | ST [...] | + +--------+ + + + | UA-KK-TCL-HB,POC RT | Routin | 03/15/2017 | ST [...] | + +--------+ + + + | EY-MJ-LCZ-HB,POC RT | Routin | 03/15/2017 | ST [...] | + +--------+ + + + | NT-ZY-EJE-HB,POC RT | Routin | 03/15/2017 | ST [...] Height: 175 cm Weight: 89 kgBSA: 2.05 [id number] PHYSICIAN:Katarina Ngo | | .FELLOW:Gerson Mejias M.D. [...] femoral artery | | 6-Icelandic 10 cm Geneva sheath, 6-Icelandic XB 3.5 guide catheter, 5-Icelandic [...] 5-Icelandic micropuncture system, a 6-Icelandic 10 cm Geneva sheath was placed in the right | [...] DOSE AREA | | PRODUCT: 3749 cGy [id number]:Aortic pressure 87/15, mean aortic pressure 63, heart [...] 03/30/2017 04:50:01DT: | | 03/30/2017 08:34:34Job #: [id number] | |extending from it into the LAD. [...] |YDT/MODL | | | | | | /[id number] | + + CAPILLARY BLOOD GLUCOSE (NO [...] [facility] | [address] | [place], [place] | | | JULIANN SILVA OF CARE | [address] | [address] | | | TESTS | | | [...] [facility] | [address] | [place] [address] | | | SERVICES, CORE | PARK [...] LABORATORY | [address] | [place] [address] | | | SERVICES, CORE | PARK [...] [facility] | [address] | [place] [address] | | | SERVICES, CORE | PARK [...] | | | LABORATORY | | | PANAMANIAN | | | SERVICES, | | | [...] | + + + + + | [facility] | [address] | [place] [address] | | | ARASH, ИРИНА | JT [...] | + + + + + | [facility] | [address] | [place] [address] | | | ИРИНА ANTOINE | JT [...] | + + + + + | [facility] | [address] | [place] [address] | | | ARASH, ИРИНА | JT [...] | | POC | | | JULIANN SIVLA | | [...] [facility] | [address] | [place], [place] | | | R[facility]ARDO POINT OF CARE | [address] | [address] | | | TESTS | | | [...] ANA MARIA | [address] | [place], [place] | | | [facility]O POINT [facility] CARE | [address] | [address] | | | TESTS | | | [...] [facility] | [address] | [place], [place] | | | JULIANN SILVA OF [facility] | [address] | [address] | | | TESTS | | | [...] | + + + + + | [facility] | [address] [facility] | [place] [address] | | | SERVICES, CORE | JT [...] | | | LABORATORY | | | PANAMANIAN | | | SERVICES, | | | [...] | + + + + + | [facility] | [address] | [place] [address] | | | SERVICES, CORE | PARK [...] | + + + + + | [facility] | [address] | [place] [address] | | | SERVICES, CORE | JT [...] [facility] | [address] | [place] [address] | | | SERVICES, CORE | PARK [...] + + + | [facility] | [address] | [place], [place] | | | [facility] | [facility] | [address] | | | TESTS | | | [...] [facility] | [address] | [place], [place] | | | JULIANN SILVA OF [place] | [address] | [address] | | | TESTS | | | [...] [facility] | [address] | [place], [place] | | | JULIANN SILVA OF CARE | [address] | [address] | | | TESTS | | | [...] MARIA | [address] | [place], [place] | | | [facility] | [address] | [address] | | | TESTS | | | [...] | + + + + + | [facility] | [address] | [place] [address] | | | SERVICES, CORE | PARK [...] | | | LABORATORY | | | PANAMANIAN | | | SERVICES, | | | [...] [facility] | [address] | [place] [address] | | | SERVICES, CORE | PARK [...] | + + + + + | [facility] | [address] | [place] [address] | | | SERVICES, CORE | PARK [...] | + + + + + | [facility] | [address] [facility] | [place] [address] | | | SERVICES, CORE | PARK [...] [facility] | [address] | [place] [address] | | | SERVICES, CORE | PARK [...] MARIA | [address] | [place], [place] | | | [facility] | [address] | [address] | | | TESTS | | | [...] | | | LABORATORY | | | PANAMANIAN | | | SERVICES, | | | [...] + + + | [facility] | [address] | [place] [address] | | | ARASH, ИРИНА | JT [...] [facility] OF | [address] | [place], [place] | | | CARDIOLOGY | [address] | [address] | | + + + + + [...] [facility] | [address] | [place], [place] | | | R[facility]ARDO POINT OF CARE | [address] | [address] | | | TESTS | | | [...] | | | LABORATORY | | | PANAMANIAN | | | SERVICES, | | | [...] | + + + + + | [facility] | [address] | [place] [address] | | | SERVICES, CORE | PARK [...] | + + + + + | [facility] | [address] | [place] [address] | | | SERVICES, CORE | JT [...] formed At | + +---- + | [facility] | [facility] | | [facility] Adult Echocardiography Laboratory [address] CAR DIOLOGY | | [address], [place] [address] Ph: | | | Pt Name: RON MCKEON | | | Study Date/Time 03/30/2017 / 10:44:00 AMMRN: [id number] | | | Most recent prior: 03/19/17 #: [id number] | | | No. previous echos: 3DOB: 1955 61 years Heart | | | Rate: 70 bpmHeight: 68.0 in Blood | | | Pressure: 100/55 mm/HgWeight: 197.0 lb | | | Gender: MBSA: 2.03 m2 | | | Order ID: [id number] Dry Cleaner Presser: Shahab Sutton | | | RDCSSonographer 2: Karly Gayle Referring Provider: Ariana | | | [facility] Location: 11KModalities Performed: 2D, Color [...] Tn, | | | patient's significant recent [place], we activated the laborer bituminous paving. Patient | | | history has been [...] Report electronically signed by: | | | [id number] Jordon Neville MD (03/30/2017, 2:04:56 PM) Final [...] | | | |Report electronically signed by: [id number] Jordon Neville MD (03/30/2017, 2:04:56 PM) | | | | | | | | | | | | Final | | + +---- + + + | Procedure Note | + + | Interface, Cardiology Results - 03/30/2017 2:04 PM [facility] | | [facility] Echocardiography Laboratory [address] [place] [address] | | [place], [place] [address] Pt Name: RON Chaudhary | | MIKE Study Date/Time 03/30/2017 / 10:44:00 AMMRN: [id number] Most | | recent prior: 03/19/17cc #: [id number] No. previous echos: 3DOB: | | 1955 61 years Heart Rate: 70 bpmHeight: 68.0 in Blood | | Pressure: 100/55 mm/HgWeight: 197.0 lb Gender: MBSA: | | 2.03 m2 Order ID: [id number] Dry Cleaner Presser: Shahab Sutton | | RDCSSonographer 2: Karly [...] elevated Tn, | | patient's significant recent [place], we activated the laborer bituminous paving. Patient history has been | | obtained [...] Scoring: Report | | electronically signed by: [id number] Jordon Neville MD (03/30/2017, 2:04:56 PM) Final [...] | | | |Report electronically signed by: [id number] Jordon Neville MD (03/30/2017, 2:04:56 PM) | | | | | | | | Final | + + + + + + + | Performing | Address | City/State/Zipcode | Phone Number | | Organization | | | | + + + + + | [facility] | [address] | [place], [place] | | | CARDIOLOGY | [address] | [address] | | + + + + + [...] [facility] | [address] | [place], [place] | | | [facility] POINT [facility] CARE | [address] | [address] | | | TESTS | | | [...] [facility] | [address] | [place] [address] | | | ИРИНА ANTOINE | JT [...] [facility] | [address] | [place], [place] | | | JULIANN SILVA OF CARE | [address] | [address] | | | TESTS | | | [...] + + | [facility] | [address] | [place], [place] | | | CARDIOLOGY | [address] | [address] | | + + + + + [...] | | | LABORATORY | | | PANAMANIAN | | | SERVICES, | | | [...] | + + + + + | [facility] | [address] [facility] | [place] [address] | | | ИРИНА ANTOINE | [address] | | | + + + [...] | + + + + + | [facility] | [address] | [place] [address] | | | SERVICESИРИНА | JT ALICEA [...] [facility] | [address] | [place] [address] | | | SERVICES, CORE | PARK [...] DEPT OF | [address] | [place], [place] | | | CARDIOLOGY | [address] | [address] | | + + + + + [...] DEPT OF | [address] | [place], [place] | | | CARDIOLOGY | [address] | [address] | | + + + + + [...] [facility] | [address] | [place] [address] | | | SERVICES, CORE | PARK [...] [facility] | [address] | [place] [address] | | | SERVICES, CORE | PARK [...] | + + + + + | [facility] | [address] | [place] [address] | | | SERVICES, CORE | JT [...] [facility] | [address] | [place] [address] | | | SERVICES, ИРИНА | JT [...] MAR[facility] | [address] | [place], [place] | | | JULIANN [facility]VA [facility] | [address] | [address] | | | TESTS | | | [...] | + + + + + | [facility] | [address] | [place] [address] | | | SERVICES, CORE | JT [...] DEPT OF | [address] | [place], [place] | | | CARDIOLOGY | [address] | [address] | | + + + + + [...] [facility] | [address] | [place], [place] | | | JULIANN SILVA [facility] | [address] | [address] | | | TESTS | | | [...] [facility] | [address] | [place], [place] | | | R[facility]O POINT OF CARE | [address] | [address] | | | TESTS | | | [...] | + + + + + | [facility] | [address] | [place] [address] | | | SERVICES, ИРИНА | JT [...] MARIA | [address] | [place], [place] | | | RICARDO [facility] | [address] | [address] | | | TESTS | | | [...] [facility] | [address] | [place] [address] | | | SERVICES, CORE | PARK [...] | | | LABORATORY | | | PANAMANIAN | | | SERVICES, | | | [...] | + + + + + | [facility] | [address] | [place] [address] | | | SERVICES, CORE | JT [...] (H) | 0.90 - 1.20 INR | [facility] | | | | | | LABORATORY [...] | + + + + + | [facility] | [address] | [place] [address] | | | SERVICES, CORE | PARK [...] [facility] | [address] | [place] [address] | | | SERVICES, CORE | PARK [...] + + + + + | [facility] | [address] | [place] [address] | | | SERVICES, CORE | JT [...] | + + + + + | [facility] | [address] | [place] [address] | | | ИРИНА ANTOINE | JT [...] [facility] | [address] | [place] | | | RICARDO POINT OF CARE | [address] | [address] | | | TESTS | | | [...] [facility] | [address] | [place] | | | JULIANN SILVA OF CARE | [address] | [address] | | | TESTS | | | [...] | | | LABORATORY | | | PANAMANIAN | | | SERVICES, | | | [...] [facility] | [address] | [place] [address] | | | SERVICES, CORE | PARK [...] | + + + + + | [facility] | [address] | [place] [address] | | | SERVICES, CORE | JT [...] | | | LABORATORY | | | PANAMANIAN | | | SERVICES, | | | [...] | + + + + + | [facility] | [address] | [place] [address] | | | SERVICES, CORE | PARK [...] [facility] | [address] | [place] | | | JULIANN SILVA OF CARE | [address] | [address] | | | TESTS | | | [...] [facility] | [address] | [place], [place] | | | R[facility]O [facility] | [address] | [address] | | | TESTS | | | [...] [facility] | [address] | [place] [address] | | | SERVICES, CORE | PARK [...] | | | LABORATORY | | | PANAMANIAN | | | SERVICES, | | | [...] [facility] | [address] | [place] [address] | | | SERVICES, CORE | PARK [...] [facility] | [address] | [place] [address] | | | SERVICES, CORE | PARK [...] [facility] | [address] | [place] [address] | | | SERVICES, CORE | PARK [...] | + + + + + | [facility] | [address] | [place] [address] | | | SERVICES, CORE | JT [...] [facility] | [address] | [place], [place] | | | RICARDO POINT OF CARE | [address] | [address] | | | TESTS | | | [...] - [facility] | [address] [address] | [place], [place] | | | [facility] | [address] | [address] | | | TESTS | | | [...] + + + | EULOGIO R[facility] | [address] | [place], [place] | | | R[facility]O [facility]INT [facility] CARE | [address] | [address] | | | TESTS | | | [...] MARQUAM | [address] | [place], [place] | | | [facility]ARE | [facility] | [address] | | | TESTS | | | [...] [facility] | [address] | [place] [address] | | | SERVICES, CORE | PARK [...] | + + + + + | [facility] | [address] | [place] [address] | | | SERVICES, CORE | PARK [...] | | | LABORATORY | | | PANAMANIAN | | | SERVICES, | | | [...] | + + + + + | [facility] | [address] | [place] [address] | | | SERVICES, CORE | PARK [...] [facility] | [address] | [place] [address] | | | SERVICES, CORE | PARK [...] | + + + + + | [facility] | [address] | [place] [address] | | | SERVICES, CORE | JT [...] RODGERS | [address] | [place] | | | R[facility]O POINT OF CARE | [address] | [address] | | | TESTS | | | [...] MARQUAM | [address] | [place] | | | [facility]ANN [facility] | [address] | [address] | | | TESTS | | | [...] | | | LABORATORY | | | PANAMANIAN | | | SERVICES, | | | [...] | + + + + + | [facility] | [address] [facility] | [place] [address] | | | SERVICES, ИРИНА | JT [...] MARIA | [address] | [place], [place] | | | [facility] | [address] | [address] | | | TESTS | | | [...] CALABRESE | [address] | [place] [address] | | | ИРИНА ANTOINE | JT [...] | + + + + + | [facility] | [address] | [place] [address] | | | SERVICES, CORE | JT [...] [facility] | [address] | [place] [address] | | | SERVICES, CORE | PARK [...] | | | LABORATORY | | | PANAMANIAN | | | SERVICES, | | | [...] [facility] | [address] | [place] [address] | | | SERVICES, CORE | JT [...] | + + + + + | [facility] | [address] | [place] [address] | | | SERVICES, CORE | PARK [...] | + + + + + | [facility] | [address] | [place] [address] | | | SERVICES, CORE | JT [...] [facility] | | considered for monitoring terminal operator glycemic control in patients with: | [...] [facility] | [address] | [place] [address] | | | SERVICES, SPECIAL | PARK [...] | + + + + + | [facility] | [address] | [place] [address] | | | SERVICES, CORE | JT [...] RODGERS | [address] | [place] | | | [facility] POINT OF CARE | [address] | [address] | | | TESTS | | | [...] MARQUAM | [address] | [place], [place] | | | JULIANN SIL[facility] CARE | [facility] | [address] | | | TESTS | | | [...] [facility] | [address] | [place] [address] | | | SERVICES, CORE | PARK [...] | [facility] | | | GRAVITY | Lequire performed by | | LABORATORY | | [...] | + + + + + | [facility] | [address] | [place] [address] | | | SERVICES, CORE | JT [...] - | | | | | | [place] | | + +-------+ + + + + + | Specimen | + + | Blood - Blood | | (substance) | + + + + + + + | Performing | Address | City/State/Zipcode | Phone Number | | Organization | | | | + + + + + | [facility] | [address] | [place] [address] | | | [place] | | | | + + + [...] BLUAM | [address] | [place], [place] | | | [facility] | [facility] | [address] | | | TESTS | | | [...] (H) | 70 - 99 mg/dL | [facility] - | | | GLUCOSE, [...] BLUAM | [address] | [place], [place] | | | J[facility]IANN [facility]ARE | [address] | [address] | | | TESTS | | | [...] | + + + + + | [facility] | [address] | [place] [address] | | | SERVICES, CORE | JT [...] [facility] | [address] | [place] [address] | | | ИРИНА ANTOINE | JT [...] | + + + + + | [facility] | [address] | [place] [address] | | | ИРИНА ANTOINE | JT [...] [facility] | [address] | [place] [address] | | | SERVICES, CORE | PARK [...] | | | LABORATORY | | | PANAMANIAN | | | SERVICES, | | | [...] | + + + + + | [facility] | [address] [facility] | [place] [address] | | | SERVICES, CORE | PARK [...] | + + + + + | [facility] | [address] [facility] | [place] [address] | | | ARASH, ИРИНА | JT [...] BLUAM | [address] | [place], [place] | | | JULIANN [facility] [place] | [facility] | [address] | | | TESTS | | | [...] (H) | 70 - 99 mg/dL | [facility] - | | | GLUCOSE, [...] RODGERS | [address] | [place] | | | R[facility]O POINT OF CARE | [address] | [address] | | | TESTS | | | [...] RODGERS | [address] | [place], [place] | | | J[facility] [place] | [address] | [address] | | | TESTS | | | [...] ANA MARIA | [address] | [place], [place] | | | [facility]ULIANN [facility] | [address] | [address] | | | TESTS | | | [...] [facility] | [address] | [place] [address] | | | SERVICES, CORE | PARK [...] [facility] | [address] | [place] [address] | | | SERVICES, CORE | PARK [...] + + | E[facility]OG[facility] | [address] [address] | [place] | | | [facility] | [facility] | [address] | | | TESTS | | | [...] attempt. Midline lot number | | | [id number]; there was + blood return. The catheter [...] MARQUAM | [address] | [place] | | | [facility]INT [facility] CARE | [address] | [address] | | | TESTS | | | [...] MARIA | [address] | [place], [place] | | | JULIANN [facility] | [address] | [address] | | | TESTS | | | [...] | + + + + + | [facility] | [address] | [place] [address] | | | SERVICES, CORE | JT [...] MARQUAM | [address] | [place] | | | JULIANN [facility] [place] | [address] | [address] | | | TESTS | | | [...] BLUAM | [address] | [place], [place] | | | JULIANN SIVLA OF CARE | [facility] | [address] | | | TESTS | | | [...] RODGERS | [address] | [place] | | | [facility]INT [facility] CARE | [address] | [address] | | | TESTS | | | [...] MARQUAM | [address] | [place] | | | JULIANN S[facility]ARE | [address] | [address] | | | TESTS | | | [...] | + + + + + | [facility] | [address] | [place] [address] | | | SERVICES, CORE | PARK [...] | + + + + + | [facility] | [address] | [place] [address] | | | SERVICES, CORE | [address] | | | + + + + + MAGNESIUM, PLASMA (03/24/2017 12:12 AM PDT) + +---------+ + + + | Component | Value | Ref Range | Performed | Pathologist | | | | | At | Signature | + +---------+ + + + | MAGNESIUM,P | 2.8 (H) | 1.8 - 2.5 mg/dL | [facility] | | | LASMA | | | [...] | + + + + + | [facility] | [address] [facility] | [place] [address] | | | SERVICES, CORE | JT [...] | | | LABORATORY | | | PANAMANIAN | | | SERVICES, | | | [...] [facility] | [address] | [place] [address] | | | SERVICES, CORE | PARK [...] | + + + + + | [facility] | [address] | [place] [address] | | | SERVICES, CORE | PARK [...] MARIA | [address] | [place], [place] | | | JUL[facility]ANN [facility] [place] | [address] | [address] | | | TESTS | | | [...] MARIA | [address] | [place], [place] | | | JULIANN SILVA OF CARE | [facility] | [address] | | | TESTS | | | [...] (H) | 70 - 99 mg/dL | [facility] - | | | GLUCOSE, [...] RODGERS | [address] | [place] | | | [facility]IANN [facility] | [facility] | [address] | | | TESTS | | | [...] MARRANDIAM | [address] | [place] | | | JULIANN S[facility] [place] | [address] | [address] | | | TESTS | | | [...] | + + + + + | [facility] | [address] | [place] [address] | | | SERVICES, CORE | JT [...] RODGERS | [address] | [place] | | | [facility]ARE | [address] | [address] | | | TESTS | | | [...] MARQUAM | [address] | [place] | | | JULIANN SILVA [facility] CARE | [address] | [address] | | | TESTS | | | [...] | + + + + + | [facility] | [address] | [place] [address] | | | SERVICES, CORE | JT [...] (H) | 70 - 99 mg/dL | [facility] - | | | GLUCOSE, [...] RODGERS | [address] | [place] | | | JULIANN SIL[facility] CARE | [address] | [address] | | | TESTS | | | [...] MARQUAM | [address] | [place] | | | JULIANN [facility]ARE | [address] | [address] | | | TESTS | | | [...] BLUAM | [address] | [place], [place] | | | R[facility]INT [facility] CARE | [address] | [address] | | | TESTS | | | [...] (H) | 70 - 99 mg/dL | [facility] - | | | GLUCOSE, [...] + + + | E[facility] | [address] | [place] | | | JULIANN [facility] | [address] | [address] | | | TESTS | | | [...] MARQUAM | [address] | [place] | | | JULIANN SIL[facility] CARE | [address] | [address] | | | TESTS | | | [...] | + + + + + | [facility] | [address] | [place] [address] | | | SERVICES, CORE | PARK [...] | + + + + + | [facility] | [address] | [place] [address] | | | SERVICES, CORE | [address] | | | + + + + + MAGNESIUM, PLASMA (03/23/2017 2:00 AM PDT) + +---------+ + + + | Component | Value | Ref Range | Performed | Pathologist | | | | | At | Signature | + +---------+ + + + | MAGNESIUM,P | 2.7 (H) | 1.8 - 2.5 mg/dL | [facility] | | | DENISEMA | | | [...] | + + + + + | [facility] | [address] [facility] | [place] [address] | | | SERVICES, CORE | JT [...] | | | LABORATORY | | | PANAMANIAN | | | SERVICES, | | | [...] [facility] | [address] | [place] [address] | | | SERVICES, CORE | PARK [...] | + + + + + | [facility] | [address] | [place] [address] | | | SERVICES, CORE | PARK [...] MARRANDIAM | [address] | [place] | | | JULIANN SIL[facility]ARE | [address] | [address] | | | TESTS | | | [...] MARIA | [address] | [place], [place] | | | [facility]ARE | [address] | [address] | | | TESTS | | | [...] (H) | 70 - 99 mg/dL | [facility] - | | | GLUCOSE, [...] RODGERS | [address] | [place] | | | J[facility]IANN [facility]ARE | [address] | [address] | | | TESTS | | | [...] MARQUAM | [address] | [place] | | | [facility] [place] | [address] | [address] | | | TESTS | | | [...] BLUAM | [address] | [place], [place] | | | J[facility]IANN [facility] | [address] | [address] | | | TESTS | | | [...] RODGERS | [address] | [place] | | | [facility]ANN [facility] | [address] | [address] | | | TESTS | | | [...] [facility] | [address] | [place] [address] | | | ARASH, ИРИНА | JT [...] MARQUAM | [address] | [place] | | | JULIANN SIL[facility] [place] | [facility] | [address] | | | TESTS | | | [...] RODGERS | [address] | [place] | | | [facility]ARE | [address] | [address] | | | TESTS | | | [...] MARQUAM | [address] | [place] | | | H[place], POINT OF CARE | [address] | [address] | | | TESTS | | | [...] MARQUAM | [address] | [place] | | | JULIANN SILVA [facility] [place] | [facility] | [address] | | | TESTS | | | [...] RODGERS | [address] | [place] | | | [facility] CARE | [address] | [address] | | | TESTS | | | [...] | + + + + + | [facility] | [address] | [place] [address] | | | SERVICES, CORE | JT [...] (H) | 70 - 99 mg/dL | [facility] - | | | GLUCOSE, [...] RODGERS | [address] | [place] | | | JULIANN SILVA [facility] CARE | [address] | [address] | | | TESTS | | | [...] BLUAM | [address] | [place] | | | [facility] | [address] | [address] | | | TESTS | | | [...] MARQUAM | [address] | [place] | | | [facility]ANN [facility] | [address] | [address] | | | TESTS | | | [...] RODGERS | [address] | [place] | | | J[facility]IANN S[facility] | [address] | [address] | | | TESTS | | | [...] BLUAM | [address] | [place] | | | JULIANN SILVA [facility] CARE | [address] | [address] | | | TESTS | | | [...] BLUAM | [address] | [place] | | | [facility]ARE | [address] | [address] | | | TESTS | | | [...] | + + + + + | [facility] | [address] | [place] [address] | | | SERVICES, | [address] [...] LABORATORY | [address] | [place] [address] | | | SERVICES, | [address] [...] + + + + | PRODUCT | [id number] | | [facility] | | | UNIT [...] + + + + | EXPIRATION | [id number] | | [facility] | | | DATE [...] + + + + | BLOOD | [id number] | | [facility] | | | PRODUCT [...] | + + + + + | [facility] | [address] | [place] [address] | | | SERVICES, | [address] [...] [facility] | [address] | [place] [address] | | | SERVICES, CORE | PARK [...] [facility] | [address] | [place] [address] | | | SERVICES, CORE | [address] [...] [facility] | [address] | [place] [address] | | | SERVICES, CORE | PARK [...] [facility] | [address] | [place] [address] | | | SERVICES, CORE | PARK [...] | + + + + + | [facility] | [address] | [place] [address] | | | SERVICES, CORE | JT [...] | | | LABORATORY | | | PANAMANIAN | | | SERVICES, | | | [...] | + + + + + | [facility] | [address] | [place] [address] | | | SERVICES, CORE | PARK [...] MARIA | [address] | [place] | | | JULIANN SIL[facility] | [address] | [address] | | | TESTS | | | [...] MARIA | [address] | [place], [place] | | | [facility] | [address] | [address] | | | TESTS | | | [...] (H) | 70 - 99 mg/dL | [facility] - | | | GLUCOSE, [...] RODGERS | [address] | [place] | | | JULIANN S[facility] | [address] | [address] | | | TESTS | | | [...] MARQUAM | [address] | [place] | | | [facility] [place] | [address] | [address] | | | TESTS | | | [...] MARIA | [address] | [place], [place] | | | [facility] | [address] | [address] | | | TESTS | | | [...] RODGERS | [address] | [place] | | | [facility] | [address] | [address] | | | TESTS | | | [...] MARQUAM | [address] | [place] | | | [facility] [place] | [address] | [address] | | | TESTS | | | [...] BLUAM | [address] | [place], [place] | | | JULIANN SILVA OF CARE | [facility] | [address] | | | TESTS | | | [...] RODGERS | [address] | [place] | | | [facility] | [address] | [address] | | | TESTS | | | [...] | | | LABORATORY | | | PANAMANIAN | | | SERVICES, | | | [...] | + + + + + | [facility] | [address] | [place] [address] | | | SERVICES, CORE | JT [...] (H) | 70 - 99 mg/dL | [facility] - | | | GLUCOSE, [...] + + + | [facility] | [address] | [place] | | | [facility]ARE | [address] | [address] | | | TESTS | | | [...] MARQUAM | [address] | [place] | | | [facility]O PO[facility] | [facility] | [address] | | | TESTS | | | [...] EULOGIO RODGERS | [address] | [place] | | | JULIANN SILVA [facility] | [address] | [address] | | | TESTS | | | [...] attempt. Midline lot | | | number [id number]; there was + blood return. The catheter [...] MARQUAM | [address] | [place], [place] | | | JULIANN SILVA [facility] CARE | [address] | [address] | | | TESTS | | | [...] - MARQU[facility] | [address] | [place], [place] | | | [facility] | [address] | [address] | | | TESTS | | | [...] | + + + + + | [facility] | [address] | [place] [address] | | | SERVICES, CORE | JT [...] MARIA | [address] | [place] | | | [facility] | [address] | [address] | | | TESTS | | | [...] | + + + + + | [facility] | [address] | [place] [address] | | | SERVICES, CORE | PARK [...] (H) | 70 - 99 mg/dL | [facility] - | | | GLUCOSE, [...] RODGERS | [address] | [place], [place] | | | [facility]ARE | [address] | [address] | | | TESTS | | | [...] MARQUAM | [address] | [place] | | | [facility], POINT OF CARE | [address] | [address] | | | TESTS | | | [...] MARQUAM | [address] | [place] | | | JULIANN S[facility] [place] | [facility] | [address] | | | TESTS | | | [...] RODGERS | [address] | [place], [place] | | | [facility] | [address] | [address] | | | TESTS | | | [...] | + + + + + | [facility] | [address] | [place] [address] | | | SERVICES, ИРИНА | JT [...] | + + + + + | [facility] | [address] | [place] [address] | | | SERVICES, CORE | PARK [...] | + + + + + | [facility] | [address] | [place] [address] | | | SERVICES, CORE | PARK [...] | | | LABORATORY | | | PANAMANIAN | | | SERVICES, | | | [...] | + + + + + | [facility] | [address] | [place] [address] | | | SERVICES, CORE | JT [...] (H) | 70 - 99 mg/dL | [facility] - | | | GLUCOSE, [...] RODGERS | [address] | [place], [place] | | | J[facility]ANN [facility] [place] | [address] | [address] | | | TESTS | | | [...] MARQUAM | [address] | [place] | | | [facility] | [address] | [address] | | | TESTS | | | [...] MARQUAM | [address] | [place], [place] | | | [facility] | [address] | [address] | | | TESTS | | | [...] RODGERS | [address] | [place] | | | JULIANN S[facility]VA [facility] [place] | [facility] | [address] | | | TESTS | | | [...] MARQUAM | [address] | [place] | | | [facility] | [address] | [address] | | | TESTS | | | [...] | + + + + + | [facility] | [address] | [place] [address] | | | SERVICES, ИРИНА | JT [...] MARQUAM | [address] | [place] | | | [facility] | [address] | [address] | | | TESTS | | | [...] - BLUAM | [address] | [place], [place] | | | [facility]ANN [facility] | [address] | [address] | | | TESTS | | | [...] RODGERS | [address] | [place] | | | [facility] [place] | [address] | [address] | | | TESTS | | | [...] MARQUAM | [address] | [place] | | | [facility] | [address] | [address] | | | TESTS | | | [...] ANA MARIA | [address] | [place], [place] | | | [facility] | [address] | [address] | | | TESTS | | | [...] RODGERS | [address] | [place] | | | [facility]ANN [facility] [place] | [address] | [address] | | | TESTS | | | [...] MARQU[facility] | [address] | [place] | | | [facility] | [address] | [address] | | | TESTS | | | [...] | + + + + + | [facility] | [address] | [place] [address] | | | SERVICES, CORE | JT [...] RODGERS | [address] | [place], [place] | | | [facility] | [address] | [address] | | | TESTS | | | [...] BLUAM | [address] | [place], [place] | | | [facility] | [address] | [address] | | | TESTS | | | [...] | + + + + + | [facility] | [address] | [place] [address] | | | SERVICES, CORE | PARK [...] (H) | 70 - 99 mg/dL | [facility] - | | | GLUCOSE, [...] RODGERS | [address] | [place], [place] | | | [facility] | [address] | [address] | | | TESTS | | | [...] the tip in the proximal gastric body. [place] [facility] | | | catheter in place. [...] with the tip in the proximal gastric body.[place] [facility] catheter in | | place.Limited evaluation of the lungs as technique was tailored for feeding tube.I have | | personally reviewed the images and, if necessary, edited the report. I agree with the | | report as now presented. | | | |Feeding tube is seen in the stomach with the tip in the proximal gastric body. | |[place] [facility] catheter in place. | |Limited evaluation [...] R[facility]GERS | [address] | [place], [place] | | | [facility] | [address] | [address] | | | TESTS | | | [...] MARQUAM | [address] | [place], [place] | | | [facility] | [address] | [address] | | | TESTS | | | [...] - MARQU[facility] | [address] | [place], [place] | | | [facility] | [address] | [address] | | | TESTS | | | [...] RODGERS | [address] | [place], [place] | | | [facility] | [address] | [address] | | | TESTS | | | [...] MARQUAM | [address] | [place], [place] | | | [facility] | [address] | [address] | | | TESTS | | | [...] [facility] | [address] | [place] [address] | | | SERVICES, CORE | PARK [...] | + + + + + | [facility] | [address] | [place] [address] | | | SERVICES, CORE | JT [...] [facility] | [address] | [place] [address] | | | SERVICES, CORE | JT [...] EULOGIO [facility] | [address] | [place], [place] | | | [facility] | [address] | [address] | | | TESTS | | | | + + + + + X-RAY PORTABLE CHEST 1 VIEW (03/20/2017 6:33 AM PDT) + + | Specimen | + + | | + + + + + | Narrative | Performed At | + + + | EXAM: ID CHEST 1 VIEW 03/20/17 04:29:28 HISTORY: ECMO [...] | + + | Service Account, Arely [employer] In Interface - 03/20/2017 10:12 AM PDT EXAM: ID CHEST 1 | | VIEW 03/20/17 04:29:28 [...] RODGERS | [address] | [place], [place] | | | [facility] | [address] | [address] | | | TESTS | | | [...] MARQUAM | [address] | [place], [place] | | | [facility] | [address] | [address] | | | TESTS | | | [...] MARQUAM | [address] | [place], [place] | | | [facility] | [address] | [address] | | | TESTS | | | [...] RODGERS | [address] | [place], [place] | | | [facility] | [address] | [address] | | | TESTS | | | [...] | + + + + + | [facility] | [address] [facility] | [place] [address] | | | SERVICES, CORE | JT [...] | + + + + + | [facility] | [address] | [place] [address] | | | SERVICES, CORE | [address] | | | + + + + + MAGNESIUM, PLASMA (03/20/2017 1:00 AM PDT) + +---------+ + + + | Component | Value | Ref Range | Performed | Pathologist | | | | | At | Signature | + +---------+ + + + | MAGNESIUM,P | 2.7 (H) | 1.8 - 2.5 mg/dL | [facility] | | | [facility] | | | [...] + + | [facility] | [address] [facility] | [place] [address] | | | SERVICES, CORE | JT [...] | + + + + + | [facility] | [address] [facility] | [place] [address] | | | SERVICES, ИРИНА | JT [...] | | | LABORATORY | | | PANAMANIAN | | | SERVICES, | | | [...] | + + + + + | [facility] | [address] | [place] [address] | | | SERVICES, CORE | PARK [...] MARQU[facility] | [address] | [place], [place] | | | [facility] | [address] | [address] | | | TESTS | | | [...] ANA MARIA | [address] | [place], [place] | | | [facility] | [address] | [address] | | | TESTS | | | [...] | + + + + + | [facility] | [address] | [place] [address] | | | SERVICES, CORE | JT [...] (H) | 70 - 99 mg/dL | [facility] - | | | GLUCOSE, [...] RODGERS | [address] | [place], [place] | | | [facility] | [facility] | [address] | | | TESTS | | | [...] MARQUAM | [address] | [place], [place] | | | [facility] | [facility] | [address] | | | TESTS | | | [...] | + + + + + | [facility] | [address] | [place] [address] | | | SERVICES, CORE | PARK [...] RODGERS | [address] | [place], [place] | | | [facility] | [address] | [address] | | | TESTS | | | [...] | + + + + + | [facility] | [address] | [place] [address] | | | SERVICES, CORE | JT [...] MARIA | [address] | [place], [place] | | | [facility] | [address] | [address] | | | TESTS | | | [...] [facility] | [address] | [place] [address] | | | SERVICES, CORE | JT [...] | + + + + + | [facility] | [address] | [place] [address] | | | SERVICES, CORE | JT [...] (H) | 70 - 99 mg/dL | [facility] - | | | GLUCOSE, [...] RODGERS | [address] | [place], [place] | | | [facility] | [address] | [address] | | | TESTS | | | [...] [facility] | [address] | [place] [address] | | | SERVICES, CORE | PARK [...] | + + + + + | [facility] | [address] [facility] | [place] [address] | | | SERVICES, CORE | PARK [...] | + + + + + | [facility] | [address] | [place] [address] | | | ИРИНА ANTOINE | JT [...] | + + + + + | [facility] | [address] | [place] [address] | | | ARASH, ИРИНА | PARK [...] MARQUAM | [address] | [place], [place] | | | [facility] | [facility] | [address] | | | TESTS | | | [...] (H) | 70 - 99 mg/dL | [facility] - | | | GLUCOSE, [...] MARQUAM | [address] | [place], [place] | | | [facility] | [address] | [address] | | | TESTS | | | [...] RODGERS | [address] | [place], [place] | | | [facility] [place] | [facility] | [address] | | | TESTS | | | [...] [facility] | [address] | [place] [address] | | | SERVICES, ИРИНА | JT [...] + | [facility] | [address] [facility] | [place], [place] | | | CARDIOLOGY | [address] | [address] | | + + + + + [...] RODGERS | [address] | [place], [place] | | | [facility] | [facility] | [address] | | | TESTS | | | | + + + + + CU-WW-GPZ-HB,POC RT (03/19/2017 1:04 PM PDT) + + [...] RODGERS | [address] | [place], [place] | | | [facility] | [address] | [address] | | | TESTS | | | [...] + + + + | PRODUCT | [id number] | | [facility] | | | UNIT [...] + + + + | EXPIRATION | [id number] | | [facility] | | | DATE [...] + + + + | BLOOD | [id number] | | [facility] | | | PRODUCT [...] | + + + + + | [facility] | [address] | [place] [address] | | | SERVICES, | [address] [...] + + + + | PRODUCT | [id number] | | [facility] | | | UNIT [...] + + + + | EXPIRATION | [id number] | | [facility] | | | DATE [...] + + + + | BLOOD | [id number] | | [facility] | | | PRODUCT [...] | + + + + + | [facility] | [address] | [place] [address] | | | SERVICES, | [address] [...] + + + + | PRODUCT | [id number] | | [facility] | | | UNIT [...] + + + + | EXPIRATION | [id number] | | [facility] | | | DATE [...] + + + + | BLOOD | [id number] | | [facility] | | | PRODUCT [...] [facility] | [address] | [place] [address] | | | SERVICES, | [address] [...] + + + + | PRODUCT | [id number] | | [facility] | | | UNIT [...] + + + + | EXPIRATION | [id number] | | [facility] | | | DATE [...] + + + + | BLOOD | [id number] | | [facility] | | | PRODUCT [...] [facility] | [address] | [place] [address] | | | SERVICES, | [address] [...] [facility] | [address] | [place] [address] | | | SERVICES, CORE | PARK [...] | | | LABORATORY | | | PANAMANIAN | | | SERVICES, | | | [...] | + + + + + | [facility] | [address] | [place] [address] | | | SERVICES, CORE | PARK [...] [facility] | [address] | [place] [address] | | | SERVICES, CORE [...] | + + + + + | [facility] | [address] | [place] [address] | | | SERVICES, CORE | [address] | | | + + + + + ID ECMO REV (EXT)AND/OR DECANNULATION (03/19/2017 12:36 PM [...] Siria | | | GISELL Preston PhD [facility] [address] [id number] [place], | | | [place] [address] | | + + + ABG-FULL ABL, [...] | | | POC | | | [facility] | | | | | | [...] MARQUAM | [address] | [place], [place] | | | [facility] | [facility] | [address] | | | TESTS | | | [...] BLUAM | [address] | [place], [place] | | | [facility] | [facility] | [address] | | | TESTS | | | | + + + + + VM-IE-ZKJ-HB,POC RT (03/19/2017 10:24 AM PDT) + + [...] MARIA | [address] | [place], [place] | | | [facility] | [facility] | [address] | | | TESTS | | | [...] (H) | 70 - 99 mg/dL | [facility] - | | | GLUCOSE, [...] RODGERS | [address] | [place], [place] | | | [facility] | [address] | [address] | | | TESTS | | | | + + + + + SX-ZY-NPP-HBPOC RT (03/19/2017 10:06 AM PDT) + + [...] RODGERS | [address] | [place], [place] | | | [facility] | [address] | [address] | | | TESTS | | | | + + + + + JB-WV-IJN-HB,POC RT (03/19/2017 9:51 AM PDT) + + [...] MARIA | [address] | [place], [place] | | | [facility] | [address] | [address] | | | TESTS | | | [...] + + + + | PRODUCT | [id number] | | [facility] | | | UNIT [...] + + + + | EXPIRATION | [id number] | | [facility] | | | DATE [...] + + + + | BLOOD | [id number] | | [facility] | | | PRODUCT [...] | + + + + + | [facility] | [address] | [place] [address] | | | SERVICES, | [address] [...] + + + + | PRODUCT | [id number] | | [facility] | | | UNIT [...] + + + + | EXPIRATION | [id number] | | [facility] | | | DATE [...] + + + + | BLOOD | [id number] | | [facility] | | | PRODUCT [...] | + + + + + | [facility] | [address] | [place] [address] | | | SERVICES, | [address] [...] + + + + | PRODUCT | [id number] | | [facility] | | | UNIT [...] + + + + | EXPIRATION | [id number] | | [facility] | | | DATE [...] + + + + | BLOOD | [id number] | | [facility] | | | PRODUCT [...] | + + + + + | [facility] | [address] | [place] [address] | | | SERVICES, | [address] [...] + + + + | PRODUCT | [id number] | | [facility] | | | UNIT [...] + + + + | EXPIRATION | [id number] | | [facility] | | | DATE [...] + + + + | BLOOD | [id number] | | [facility] | | | PRODUCT [...] [facility] | [address] | [place] [address] | | | SERVICES, | [address] | | | | TRANSFUSION MEDICINE | | | | + + + + + X-RAY PORTABLE CHEST 1 VIEW (03/19/2017 9:13 AM PDT) + + | Specimen | + + | | + + + + + | Narrative | Performed At | + + + | EXAM: ID CHEST 1 VIEW HISTORY: ECMO. Evaluate cannula | [facility] | | placement. COMPARISON: Yesterday FINDINGS: Endotracheal | RADIOLOGY VOICE | | tube, [place] catheter and enteric tube remain in place. [...] Note | + + | Service Account, [employer] In Interface - 03/19/2017 9:17 AM PDT EXAM: ID CHEST 1 | | VIEW HISTORY: ECMO. Evaluate cannula placement.COMPARISON: YesterdayFINDINGS: | | Endotracheal tube, [place] catheter and enteric tube remain in place. [...] | | + +---------+ + + | [facility] | | | | [...] MARQUAM | [address] | [place], [place] | | | [facility] | [address] | [address] | | | TESTS | | | [...] + + + | [facility] | [address] | [place], [place] | | | [facility] | [address] | [address] | | | TESTS | | | [...] [facility] | [address] | [place] [address] | | | SERVICES, CORE | PARK [...] MARQUAM | [address] | [place], [place] | | | [facility] | [address] | [address] | | | TESTS | | | [...] RODGERS | [address] | [place] | | | [facility] | [address] | [address] | | | TESTS | | | [...] MARQUAM | [address] | [place], [place] | | | [facility] | [address] | [address] | | | TESTS | | | [...] ANA MARIA | [address] | [place], [place] | | | [facility] | [address] | [address] | | | TESTS | | | [...] | + + + + + | [facility] | [address] | [place] [address] | | | SERVICES, CORE | PARK [...] MARQUAM | [address] | [place], [place] | | | [facility] | [address] | [address] | | | TESTS | | | [...] MARQUAM | [address] | [place], [place] | | | [facility] | [address] | [address] | | | TESTS | | | [...] + + + | E[facility] | [address] | [place] | | | [facility] | [address] | [address] | | | TESTS | | | [...] + + | [facility] | [address] | [place] [address] | | | SERVICES, CORE | JT [...] RODGERS | [address] | [place] | | | [facility] | [address] | [address] | | | TESTS | | | [...] | + + + + + | [facility] | [address] | [place] [address] | | | SERVICES, CORE | JT [...] | + + + + + | [facility] | [address] | [place] [address] | | | SERVICES, CORE | JT [...] | + + + + + | [facility] | [address] | [place] [address] | | | SERVICES, CORE | PARK [...] [facility] | [address] | [place] [address] | | | SERVICES, CORE | PARK [...] [facility] | [address] | [place] [address] | | | SERVICES, CORE | PARK [...] | + + + + + | [facility] | [address] | [place] [address] | | | SERVICES, CORE | JT [...] | | | LABORATORY | | | PANAMANIAN | | | SERVICES, | | | [...] | + + + + + | [facility] | [address] | [place] [address] | | | SERVICES, CORE | [address]ARK [...] most patients with mech. valves (2.5 | [facility], CORE | | - 3.5) INR APTT Therapeutic Range: | | | (75 - 120) sec Heparin levels of 0.35 - 0.7 U/mL | | + + + + + + + + | Performing | Address | City/State/Zipcode | Phone Number | | Organization | | | | + + + + + | [facility] | [address] [facility] | [place] [address] | | | ARASH, CORE | JT [...] | + + + + + | [facility] | [address] | [place] [address] | | | SERVICES, CORE | JT [...] (H) | 70 - 99 mg/dL | [facility] - | | | GLUCOSE, | | | [facility] | | | POC | | | JULIANN SIVLA | | [...] RODGERS | [address] | [place], [place] | | | [facility] | [address] | [address] | | | TESTS | | | [...] | + + + + + | [facility] | [address] | [place] [address] | | | SERVICES, CORE | JT [...] (H) | 70 - 99 mg/dL | [facility] - | | | GLUCOSE, [...] R[facility]GERS | [address] | [place] | | | [facility] | [address] | [address] | | | TESTS | | | [...] MARQUAM | [address] | [place] | | | [facility] | [address] | [address] | | | TESTS | | | [...] | + + + + + | [facility] | [address] | [place] [address] | | | ИРИНА ANTOINE | JT [...] (H) | 70 - 99 mg/dL | [facility] - | | | GLUCOSE, [...] R[facility] | [address] | [place], [place] | | | [facility] | [address] | [address] | | | TESTS | | | [...] R[facility]GERS | [address] | [place], [place] | | | [facility] | [address] | [address] | | | TESTS | | | [...] ANA MARIA | [address] | [place], [place] | | | [facility] | [facility] | [address] | | | TESTS | | | [...] [facility] | [address] | [place] [address] | | | SERVICES, CORE | PARK [...] | + + + + + | [facility] | [address] | [place] [address] | | | SERVICES, CORE | JT [...] (H) | 70 - 99 mg/dL | [facility] - | | | GLUCOSE, [...] R[facility] | [address] | [place], [place] | | | [facility] | [address] | [address] | | | TESTS | | | [...] | + + + + + | [facility] | [address] | [place] [address] | | | ИРИНА ANTOINE | JT [...] [facility] | [address] | [place] | | | [facility] | [facility] | [address] | | | TESTS | | | [...] + + + | [facility] | [address] | [place] | | | [facility] | [address] | [address] | | | TESTS | | | [...] [facility] | [address] | [place] [address] | | | SERVICES, CORE | JT [...] [facility] | [address] | [place] [address] | | | ИРИНА ANTOINE | PARK [...] [facility] | [address] | [place], [place] | | | [facility] | [facility] | [address] | | | TESTS | | | [...] RODGERS | [address] | [place] | | | [facility] | [address] | [address] | | | TESTS | | | [...] | + + + + + | [facility] | [address] | [place] [address] | | | SERVICES, CORE | JT [...] [facility] | [address] | [place] [address] | | | SERVICES, CORE | PARK [...] | + + + + + | [facility] | [address] | [place] [address] | | | SERVICES, CORE | PARK [...] [facility] | [address] | [place] [address] | | | ИРИНА ANTOINE | PARK [...] | | | LABORATORY | | | PANAMANIAN | | | SERVICES, | | | [...] | + + + + + | [facility] | [address] | [place] [address] | | | ИРИНА ANTOINE | JT [...] [facility] | [address] | [place] [address] | | | SERVICES, CORE | PARK [...] LABORATORY | [address] | [place] [address] | | | SERVICES, CORE | PARK [...] | + + + + + | [facility] | [address] | [place] [address] | | | SERVICES, CORE | JT [...] [facility] | [address] | [place], [place] | | | [facility] | [address] | [address] | | | TESTS | | | [...] ANA MARIA | [address] | [place] | | | [facility] | [address] | [address] | | | TESTS | | | [...] | + + + + + | [facility] | [address] | [place] [address] | | | SERVICES, CORE | JT [...] MARIA | [address] | [place], [place] | | | [facility] | [address] | [address] | | | TESTS | | | [...] [facility] | [address] | [place] [address] | | | SERVICES, CORE | PARK [...] | + + + + + | [facility] | [address] | [place] [address] | | | SERVICES, CORE | JT [...] + | [facility] - | [address] | [place] [address] | | | [place] | | | [...] MARQU[facility] | [address] | [place], [place] | | | [facility] | [address] | [address] | | | TESTS | | | [...] RODGERS | [address] | [place] | | | [facility] | [address] | [address] | | | TESTS | | | [...] [facility] | [address] | [place] [address] | | | SERVICES, ИРИНА | JT [...] | + + + + + | [facility] | [address] | [place] [address] | | | ИРИНА ANTOINE | JT [...] (H) | 70 - 99 mg/dL | [facility] - | | | GLUCOSE, [...] MARIA | [address] | [place], [place] | | | [facility] | [address] | [address] | | | TESTS | | | [...] RD[facility] | [address] | [place] | | | JULIANN SILVA OF [place] | [facility] | [address] | | | TESTS | | | | + + + + + X-RAY PORTABLE CHEST 1 VIEW (03/18/2017 6:05 AM PDT) + + | Specimen | + + | | + + + + + | Narrative | Performed At | + + + | EXAM: ID CHEST 1 VIEW HISTORY: ECMO. Evaluate cannula placement. | [facility] | | COMPARISON: Yesterday FINDINGS: Endotracheal tube tip is | RADIOLOGY VOICE | | 2.5 cm above the jefferson. Enteric tube tip in the stomach. [place]ег | RECOGNITION | | catheter tip projects [...] Note | + + | Service Account, [employer] In Interface - 03/18/2017 8:39 AM PDT EXAM: ID CHEST 1 | | VIEW HISTORY: ECMO. Evaluate cannula placement.COMPARISON: YesterdayFINDINGS: | | Endotracheal tube tip is 2.5 cm above the jefferson. Enteric tube tip in the stomach. | | [place] catheter tip projects in the main pulmonary [...] [facility] | [address] | [place], [place] | | | [facility] | [address] | [address] | | | TESTS | | | [...] ANA MARIA | [address] | [place], [place] | | | [facility] | [address] | [address] | | | TESTS | | | [...] | + + + + + | [facility] | [address] | [place] [address] | | | SERVICES, CORE | PARK [...] [facility] | [address] | [place], [place] | | | [facility] | [address] | [address] | | | TESTS | | | [...] - [facility] | [address] | [place] | | | [facility] | [address] | [address] | | | TESTS | | | [...] | + + + + + | [facility] | [address] | [place] [address] | | | SERVICES, | [address] [...] [facility] | [address] | [place] [address] | | | SERVICES, | [address] [...] + + + + | PRODUCT | [id number] | | [facility] | | | UNIT [...] + + + + | EXPIRATION | [id number] | | [facility] | | | DATE [...] + + + + | BLOOD | [id number] | | [facility] | | | PRODUCT [...] | + + + + + | [facility] | [address] | [place] [address] | | | [address] | [...] + + + | [facility] | [address] | [place] | | | [facility] | [address] | [address] | | | TESTS | | | [...] [facility] | [address] | [place] [address] | | | SERVICES, CORE | PARK [...] [facility] | [address] | [place] [address] | | | SERVICES, CORE | PARK [...] LABORATORY | [address] | [place] [address] | | | SERVICES, CORE | PARK [...] | + + + + + | [facility] | [address] | [place] [address] | | | SERVICES, CORE | JT [...] | | | LABORATORY | | | PANAMANIAN | | | SERVICES, | | | [...] [facility] | [address] | [place] [address] | | | SERVICES, CORE | PARK [...] | + + + + + | [facility] | [address] | [place] [address] | | | ИРИНА ANTOINE | JT [...] [facility] | [address] | [place] [address] | | | SERVICES, CORE | PARK [...] | + + + + + | [facility] | [address] | [place] [address] | | | SERVICES, ИРИНА | JT [...] [facility] | [address] | [place] | | | [facility] | [address] | [address] | | | TESTS | | | [...] [facility] | [address] | [place] [address] | | | SERVICES, CORE | PARK [...] | + + + + + | [facility] | [address] | [place] [address] | | | SERVICES, CORE | JT [...] MARIA | [address] | [place], [place] | | | [facility] | [facility] | [address] | | | TESTS | | | [...] (H) | 60 - 99 mg/dL | [facility] - | | | GLUCOSE, [...] [facility] | [address] | [place], [place] | | | [facility] | [address] | [address] | | | TESTS | | | [...] MARIA | [address] | [place], [place] | | | [facility] | [address] | [address] | | | TESTS | | | [...] MARIA | [address] | [place], [place] | | | JULIANN SILVA OF CARE | [facility] | [address] | | | TESTS | | | [...] | + + + + + | [facility] | [address] | [place] [address] | | | SERVICES, CORE | PARK [...] (H) | 60 - 99 mg/dL | [facility] - | | | GLUCOSE, | | [...] RODGERS | [address] | [place], [place] | | | JULIANN SILVA OF CARE | [address] | [address] | | | TESTS | | | [...] [facility] | [address] | [place] [address] | | | SERVICES, ИРИНА | JT [...] | + + + + + | [facility] | [address] | [place] [address] | | | ИРИНА ANTOINE | JT [...] [facility] | [address] | [place] [address] | | | SERVICES, CORE | PARK [...] | + + + + + | [facility] | [address] | [place] [address] | | | SERVICES, CORE | JT [...] | + + + + + | [facility] | [address] | [place] [address] | | | ИРИНА ANTOINE | JT [...] (H) | 60 - 99 mg/dL | [facility] - | | | GLUCOSE, [...] [facility] | [address] | [place], [place] | | | [facility] | [address] | [address] | | | TESTS | | | [...] RODGERS | [address] | [place], [place] | | | JULIANN SILVA OF [place] | [facility] | [address] | | | TESTS | | | [...] | + + + + + | [facility] | [address] | [place] [address] | | | ИРИНА ANTOINE | JT [...] (H) | 60 - 99 mg/dL | [facility] - | | | GLUCOSE, [...] [facility] | [address] | [place], [place] | | | [facility] | [address] | [address] | | | TESTS | | | [...] MARIA | [address] | [place], [place] | | | GURINDER SILVA | [facility] | [address] | | | TESTS | | | [...] + + + + | PRODUCT | [id number] | | [facility] | | | UNIT [...] + + + + | EXPIRATION | [id number] | | [facility] | | | DATE [...] + + + + | BLOOD | [id number] | | [facility] | | | PRODUCT [...] [facility] | [address] | [place] [address] | | | SERVICES, | [address] [...] + + + + | PRODUCT | [id number] | | [facility] | | | UNIT [...] + + + + | EXPIRATION | [id number] | | [facility] | | | DATE [...] + + + + | BLOOD | [id number] | | [facility] | | | PRODUCT [...] [facility] | [address] | [place] [address] | | | SERVICES, | [address] [...] - [facility] | [address] | [place], [place] | | | [facility]ARE | [address] | [address] | | | TESTS | | | [...] | + + + + + | [facility] | [address] [facility] | [place] [address] | | | SERVICES, CORE | JT [...] | + + + + + | [email or web address] | [address] | [place] [address] | | | ИРИНА ANTOINE | JT [...] [facility] | [address] | [place] [address] | | | SERVICES, CORE | PARK [...] | + + + + + | [facility] | [address] [facility] | [place] [address] | | | SERVICES, CORE | JT [...] | | | LABORATORY | | | PANAMANIAN | | | SERVICES, | | | [...] the MDRD equation recommended by the | [facility] | | National Kidney Disease [...] [facility] | [address] | [place] [address] | | | SERVICES, CORE | PARK [...] | + + + + + | [facility] | [address] | [place] [address] | | | SERVICES, ИРИНА | JT [...] [facility] | [address] | [place] [address] | | | SERVICES, CORE | PARK [...] | + + + + + | [facility] | [address] | [place] [address] | | | SERVICES, CORE | JT [...] | | | POC | | | UJLIANN SILVA | | [...] [facility] | [address] | [place], [place] | | | [facility]ARE | [address] | [address] | | | TESTS | | | [...] | + + + + + | [facility] | [address] | [place] [address] | | | SERVICES, CORE | JT [...] (H) | 60 - 99 mg/dL | [facility] - | | | GLUCOSE, [...] + + + | [facility] | [address] | [place], [place] | | | JULIANN SILVA OF ALEXIS | [address] | [address] | | | TESTS | | | [...] Note | + + | Service Account, [employer] In Interface - 03/17/2017 6:18 PM PDT [...] Note | + + | Service Account, [employer] In Interface - 03/17/2017 6:17 PM PDT [...] RODGERS | [address] | [place], [place] | | | RICARDO POINT OF CARE | [address] | [address] | | | TESTS | | | [...] | + + + + + | [facility] | [address] | [place] [address] | | | SERVICES, CORE | PARK [...] formed At | + +---- + | [facility] | O G[facility] DEPT OF | | [facility] Adult Echocardiography Laboratory [address] | | [place], [place] [address] Ph: | | | Pt Name: RON MCKEON | | | Study Date/Time 03/17/2017 / 10:30:26 AMMRN: [id number] | | | Most recent prior: 03/15/2017Acc #: [id number] | | | No. previous echos: 1DOB: 1955 61 years Heart | | | Rate: 139 bpmHeight: 69.0 in Blood | | | Pressure: 133/83 mm/HgWeight: 258.0 lb | | | Gender: MBSA: 2.30 m2 | | | Order ID: [id number] Dry Cleaner Presser: Mauri Domingo [facility] | | | Referring Provider: Mellisa Rubalcava [facility] | | | Performed: Limited 2D, Color Doppler and Spectral Doppler | | | Limited.Study Quality: Fair.Exam Indication: Heart failure; ECMO; s/p | | | STEMIHistory: 61 year old male with a past medical history significant | | | for hypertension, hyperlipidemia, ongoing tobacco use and | | | pre-diabetes who is transferred to [facility] with cardiogenic shock in the [...] Report electronically | | | signed by: [id number] Jen Ovalle MD, PhD (03/17/2017, 1:53:40 PM) [...] | | | |Report electronically signed by: [id number] Jen Ovalle MD, PhD (03/17/2017, | | |1:53:40 PM) | | | | | | | | | | | | Final | | + +---- + + + | Procedure Note | + + | Interface, Cardiology Results - 03/17/2017 1:53 PM PDT [facility] | | [facility] Echocardiography Laboratory [facility] | | [place], [place] [address] Pt Name: RON Chaudhary | | MIKE Study Date/Time 03/17/2017 / 10:30:26 AMMRN: [id number] Most | | recent prior: 03/15/2017Acc #: [id number] No. previous echos: 1DOB: | | 1955 61 years Heart Rate: 139 bpmHeight: 69.0 in Blood | | Pressure: 133/83 mm/HgWeight: 258.0 lb Gender: MBSA: | | 2.30 m2 Order ID: [id number] Dry Cleaner Presser: Mauri Domingo | | RDCSReferring Provider: Mellisa HajiPatient Location: 12KModalities Performed: | | Limited 2D, Color Doppler and Spectral Doppler Limited.Study Quality: Fair.Exam | | Indication: Heart failure; ECMO; s/p STEMIHistory: 61 year old male with a past medical | | history significant for hypertension, hyperlipidemia, ongoing tobacco use and | | pre-diabetes who is transferred to [facility] with cardiogenic shock in the [...] | | Scoring: Report electronically signed by: [id number] Jen Ovalle MD, PhD (03/17/2017, | | [...] | | | |Report electronically signed by: [id number] Jen Ovalle MD, PhD (03/17/2017, | |1:53:40 PM) | | | | | | | | Final | + + + + + + + | Performing | Address | City/State/Zipcode | Phone Number | | Organization | | | | + + + + + | [facility] | [address] | [place], [place] | | | CARDIOLOGY | [address] | [address] | | + + + + + [...] [facility] | [address] | [place] | | | JULIANN SILVA OF CARE | [address] | [address] | | | TESTS | | | [...] MARIA | [address] | [place], [place] | | | RICARDO POINT OF CARE | [address] | [address] | | | TESTS | | | [...] [facility] | [address] | [place] [address] | | | SERVICES, CORE | PARK [...] | + + + + + | [facility] | [address] | [place] [address] | | | SERVICES, CORE | JT [...] | + + + + + | [facility] | [address] | [place] [address] | | | SERVICES, CORE | JT [...] [facility] | [address] | [place] | | | RICARDO POINT OF CARE | [address] | [address] | | | TESTS | | | [...] RODGERS | [address] | [place] | | | RICARDO POINT OF CARE | [address] | [address] | | | TESTS | | | [...] [facility] | [address] | [place], [place] | | | JULIANN SILVA OF CARE | [facility] | [address] | | | TESTS | | | [...] [facility] | [address] | [place] [address] | | | SERVICES, CORE | PARK [...] | + + + + + | [facility] | [address] | [place] [address] | | | ARASH, ИРИНА | [address] | | | + + + + + X-RAY PORTABLE CHEST 1 VIEW (03/17/2017 5:37 AM PDT) + + | Specimen | + + | | + + + + + | Narrative | Performed At | + + + | EXAM: ID CHEST 1 VIEW 03/17/17 04:53:29 HISTORY: On [...] Note | + + | Service Account, [employer]PE[employer] Res In Interface - 03/17/2017 9:44 AM PDT EXAM: ID CHEST 1 | | VIEW 03/17/17 04:53:29 [...] ANA MARIA | [address] | [place] | | | RICARDO POINT OF CARE | [address] | [address] | | | TESTS | | | [...] | + + + + + | [facility] | [address] | [place] [address] | | | SERVICES, CORE | JT [...] | | | LABORATORY | | | PANAMANIAN | | | SERVICES, | | | [...] [facility] | [address] | [place] [address] | | | ARASH, ИРИНА | PARK [...] | + + + + + | [facility] | [address] | [place] [address] | | | SERVICES, ИРИНА | JT [...] [facility] | [address] | [place] | | | HILL, POINT OF CARE | [address] | [address] | | | TESTS | | | [...] [facility] | [address] | [place] [address] | | | ИРИНА ANTOINE | JT [...] [facility] | [address] | [place] [address] | | | SERVICES, CORE | PARK [...] [facility] | [address] | [place] [address] | | | SERVICES, CORE | JT [...] | + + + + + | [facility] | [address] | [place] [address] | | | SERVICES, CORE | PARK [...] [facility] | [address] | [place] [address] | | | SERVICES, CORE | PARK [...] [facility] | [address] | [place] [address] | | | SERVICES, CORE | PARK [...] [facility] | [address] | [place] [address] | | | SERVICES, CORE | PARK [...] | + + + + + | [facility] | [address] | [place] [address] | | | SERVICES, CORE | JT [...] [facility] | [address] | [place] [address] | | | SERVICES, CORE | PARK [...] | + + + + + | [facility] | [address] | [place] [address] | | | SERVICES, CORE | JT [...] DEPT OF | [address] | [place], [place] | | | CARDIOLOGY | [address] | [address] | | + + + + + MK-RO-MFF-HB,POC RT (03/17/2017 12:44 AM PDT) + + [...] [facility] | [address] | [place] | | | HILL, POINT OF CARE | [address] | [address] | | | TESTS | | | [...] MARRANDIAM | [address] | [place], [place] | | | JULIANN SILVA OF [facility] | [facility] | [address] | | | TESTS | | | [...] RODGERS | [address] | [place], [place] | | | JULIANN SILVA OF [facility] | [address] | [address] | | | TESTS | | | [...] | + + + + + | [facility] | [address] | [place] [address] | | | ИРИНА ANTOINE | JT [...] (H) | 60 - 99 mg/dL | [facility] - | | | GLUCOSE, | | | [facility] | | | POC | | | JULIANN SIVLA | | [...] [facility] | [address] | [place], [place] | | | R[facility]O POINT OF [facility] | [address] | [address] | | | TESTS | | | [...] RODGERS | [address] | [place] | | | JULIANN SILVA OF [facility] | [facility] | [address] | | | TESTS | | | [...] | + + + + + | [facility] | [address] | [place] [address] | | | ARASH, CORE | JT [...] RODGERS | [address] | [place], [place] | | | RICARDO POINT OF CARE | [address] | [address] | | | TESTS | | | [...] | + + + + + | [facility] | [address] | [place] [address] | | | SERVICES, CORE | JT [...] [facility] | [address] | [place] | | | RICARDO POINT OF CARE | [address] | [address] | | | TESTS | | | [...] + + + | [facility] R[facility] | [address] | [place], [place] | | | [facility] | [address] | [address] | | | TESTS | | | [...] | | verifies correct patient, procedure, equipment, administrative support assoc and | | | site/side marked as [...] [facility] | [address] | [place] [address] | | | SERVICES, CORE | PARK [...] [facility] | [address] | [place] [address] | | | SERVICES, CORE [...] | + + + + + | [facility] | [address] | [place] [address] | | | SERVICES, CORE | JT [...] | + + + + + | [facility] | [address] [facility] | [place] [address] | | | SERVICES, ИРИНА | JT [...] | | | LABORATORY | | | PANAMANIAN | | | SERVICES, | | | [...] | + + + + + | [facility] | [address] | [place] [address] | | | SERVICES, CORE | PARK [...] | + + + + + | [facility] | [address] | [place] [address] | | | SERVICES, CORE | JT [...] | + + + + + | [facility] | [address] [facility] | [place] [address] | | | SERVICES, CORE | PARK [...] (H) | 60 - 99 mg/dL | [facility] - | | | GLUCOSE, [...] RODGERS | [address] | [place] | | | JULIANN SILVA OF [facility] | [facility] | [address] | | | TESTS | | | [...] [facility] | [address] | [place], [place] | | | JULIANN SILVA OF CARE | [facility] | [address] | | | TESTS | | | [...] MARQU[facility] | [address] | [place], [place] | | | JULIANN SILVA OF [facility] | [facility] | [address] | | | TESTS | | | [...] RODGERS | [address] | [place] | | | RICARDO POINT OF CARE | [address] | [address] | | | TESTS | | | [...] | + + + + + | [facility] | [address] [facility] | [place] [address] | | | SERVICES, CORE | JT [...] | | | LABORATORY | | | PANAMANIAN | | | SERVICES, | | | [...] | + + + + + | [facility] | [address] | [place] [address] | | | SERVICES, CORE | PARK [...] MARRANDIAM | [address] | [place] | | | JULIANN SILVA OF CARE | [address] | [address] | | | TESTS | | | [...] [facility] | [address] | [place] [address] | | | SERVICESИРИНА | [address] [...] [facility] | [address] | [place] | | | JULIANN SILVA OF [facility] | [facility] | [address] | | | TESTS | | | | + + + + + OPERATION RECORD (03/16/2017 9:30 AM PDT) + + | Procedure Note | + + | Dale Mak MD - 03/15/2017 3:42 PM PDT Date of Service: 03/15/2017 Attending | | Surgeon:Ron Powell MD. Director Of Scout Work(s):Dale Mak MD. | | Preoperative Diagnoses: 1.Cardiogenic [...] The | | patient was transferred to [facility] for further management. At [facility], the patient continued | | [...] 03/15/2017 15:23:00DT: 03/15/2017 15:42:27Job #: | | [id number] | | | |A 19-Icelandic arterial cannula [...] |HS/MODL | | | | | | /[id number] | + + CBC (HEMOGRAM) ONLY (03/16/2017 [...] [facility] | [address] | [place] [address] | | | SERVICES, CORE | PARK [...] | + + + + + | [facility] | [address] | [place] [address] | | | SERVICES, CORE | PARK [...] | + + + + + | [facility] | [address] [facility] | [place] [address] | | | SERVICES, CORE | PARK [...] MARIA | [address] | [place], [place] | | | JULIANN SILVA OF ALEX[place] | [facility] | [address] | | | TESTS | | | [...] (H) | 60 - 99 mg/dL | [facility] - | | | GLUCOSE, [...] RODGERS | [address] | [place], [place] | | | RICARDO POINT OF CARE | [address] | [address] | | | TESTS | | | [...] MARIA | [address] | [place], [place] | | | JULIANN SILVA OF [facility] | [address] | [address] | | | TESTS | | | | + + + + + X-RAY PORTABLE CHEST 1 VIEW (03/16/2017 5:44 AM PDT) + + | Specimen | + + | | + + + + + | Narrative | Performed At | + + + | EXAM: ID CHEST 1 VIEW HISTORY: Evaluate cannula placement. heart | [facility] | | failure. COMPARISON: Yesterday FINDINGS: Endotracheal | RADIOLOGY VOICE | | tube, [place]-Олег catheter and enteric tube remain in place. [...] Interface - 03/16/2017 8:27 AM PDT EXAM: ID CHEST 1 | | VIEW HISTORY: Evaluate cannula placement. heart failure.COMPARISON: YesterdayFINDINGS: | | Endotracheal tube, [place]-Олег catheter and enteric tube remain in place. [...] MARIA | [address] | [place], [place] | | | RICARDO POINT OF CARE | [address] | [address] | | | TESTS | | | [...] + + | Performing | Address | City/State[facility] | Phone Number | | Organization | | | | + + + + + | [facility] | [address] | [place], [place] | | | JULIANN SILVA OF [facility] | [facility] | [address] | | | TESTS | | | | + + + + + AA-GH-SES-HB,POC RT (03/16/2017 3:42 AM PDT) + + [...] RODGERS | [address] | [place], [place] | | | RICARDO POINT OF CARE | [address] | [address] | | | TESTS | | | [...] [facility] | [address] | [place] | | | JULIANN SILVA OF CARE | [address] | [address] | | | TESTS | | | [...] | + + + + + | [facility] | [address] | [place] [address] | | | SERVICES, CORE | JT [...] RODGERS | [address] | [place] | | | JULIANN [facility] | [facility] | [address] | | | TESTS | | | [...] [facility] | [address] | [place] [address] | | | SERVICES, CORE | PARK [...] | + + + + + | [facility] | [address] | [place] [address] | | | SERVICES, CORE | PARK [...] | | | LABORATORY | | | PANAMANIAN | | | SERVICES, | | | [...] | + + + + + | [facility] | [address] | [place] [address] | | | SERVICES, CORE | PARK [...] [facility] | [address] | [place] [address] | | | SERVICES, CORE | PARK [...] [facility] | [address] | [place] [address] | | | SERVICES, CORE | JT [...] | + + + + + | [facility] | [address] [facility] | [place] [address] | | | ARASH, CORE | JT [...] | + + + + + | [facility] | [address] | [place] [address] | | | ИРИНА ANTOINE | JT [...] (H) | 60 - 99 mg/dL | [facility] - | | | GLUCOSE, [...] + + + | E[facility] | [address] | [place] | | | JULIANN SILVA OF [facility] | [address] | [address] | | | TESTS | | | [...] | + + + + + | [facility] | [address] | [place] [address] | | | SERVICES, CORE | PARK [...] MARIA | [address] | [place] | | | RICARDO POINT OF CARE | [facility] | [address] | | | TESTS | | | [...] | + + + + + | [facility] | [address] [facility] | [place] [address] | | | SERVICES, CORE | JT [...] | | | LABORATORY | | | PANAMANIAN | | | SERVICES, | | | [...] | + + + + + | [facility] | [address] | [place] [address] | | | SERVICES, CORE | [address] | | | + + + + + VN-LB-QOF-HB,POC RT (03/16/2017 12:22 AM PDT) + + [...] [facility] | [address] | [place], [place] | | | RICARDO POINT OF CARE | [address] | [address] | | | TESTS | | | [...] RODGERS | [address] | [place] | | | JULIANN SILVA OF [facility] | [facility] | [address] | | | TESTS | | | [...] [facility] | [address] | [place], [place] | | | JULIANN SILVA OF CARE | [address] | [address] | | | TESTS | | | [...] (H) | 60 - 99 mg/dL | [facility] - | | | GLUCOSE, [...] RODGERS | [address] | [place] | | | JULIANN SILVA OF [facility] | [address] | [address] | | | TESTS | | | | + + + + + X-RAY PORTABLE CHEST 1 VIEW (03/15/2017 9:44 PM PDT) + + | Specimen | + + | | + + + + + | Narrative | Performed At | + + + | EXAM: ID CHEST 1 VIEW HISTORY: Evaluate new endotracheal [...] Note | + + | Service Account, [employer] In Interface - 03/16/2017 8:27 AM PDT EXAM: ID CHEST 1 | | VIEW HISTORY: Evaluate [...] [facility] | [address] | [place], [place] | | | RICARDO POINT OF CARE | [address] | [address] | | | TESTS | | | [...] - [facility] | [address] | [place] | | | RICARDO POINT OF CARE | [address] | [address] | | | TESTS | | | [...] [facility] | [address] | [place] [address] | | | SERVICES, ИРИНА | PARK [...] | + + + + + | [facility] | [address] | [place] [address] | | | SERVICES, CORE | PARK [...] | + + + + + | [facility] | [address] [facility] | [place] [address] | | | [address] ANTO[address] | [...] | | | laryngopharynx plus edema. A [employer] catheter was | | | [...] [facility] | [address] | [place] | | | JULIANN SILVA OF CARE | [address] | [address] | | | TESTS | | | | + + + + + JD-PK-BCX-HB,POC RT (03/15/2017 7:39 PM PDT) + + [...] RODGERS | [address] | [place] | | | RICARDO POINT OF CARE | [address] | [address] | | | TESTS | | | [...] [facility] | [address] | [place] | | | JULIANN SILVA OF CARE | [facility] | [address] | | | TESTS | | | [...] RODGERS | [address] | [place] | | | JULIANN SILVA OF [facility] | [address] | [address] | | | TESTS | | | | + + + + + X-RAY PORTABLE CHEST 1 VIEW (03/15/2017 5:51 PM PDT) + + | Specimen | + + | | + + + + + | Narrative | Performed At | + + + | STUDY: ID CHEST 1 VIEW 03/15/17 17:40:08 COMPARISON: 03/15/17 [...] Interface - 03/15/2017 6:20 PM PDT STUDY: ID CHEST 1 | | VIEW 03/15/17 17:40:08COMPARISON: [...] given by: Power of | | | reptile keeper Patient identity confirmed per policy: Yes Team Pause: | | | Immediatly prior to the procedure a pause per protocol was called. A | | | pause verifies correct patient, procedure, equipment, administrative support assoc | | | and site/side marked as [...] modified Seldinger technique | | | (a szvgybhq-vtfy-ipe-ewhguq-lvar-rpnb-brpuaxz-edn-kusbrhli) was used | | | for vessel [...] Jose Ramon Alvarado | | | R2, [facility] Emergency Medicine Personal Pager: [phone] | | | | | + + [...] | + + + + + | [facility] | [address] | [place] [address] | | | SERVICES, CORE | JT [...] [facility] | [address] | [place] | | | JULIANN SILVA OF CARE | [address] | [address] | | | TESTS | | | [...] RODGERS | [address] | [place] | | | JULIANN SILVA OF [facility] | [address] | [address] | | | TESTS | | | | + + + + + X-RAY PORTABLE CHEST 1 VIEW (03/15/2017 4:03 PM PDT) + + | Specimen | + + | | + + + + + | Narrative | Performed At | + + + | EXAM: ID CHEST 1 VIEW 03/15/17 15:42:37 HISTORY: ECMO [...] Note | + + | Service Account, [employer] In Interface - 03/15/2017 6:18 PM PDT EXAM: ID CHEST 1 | | VIEW 03/15/17 15:42:37 [...] [facility] | [address] | [place] | | | JULIANN SILVA [facility] | [address] | [address] | | | TESTS | | | [...] [facility] | [address] | [place], [place] | | | JULIANN SILVA OF CARE | [address] | [address] | | | TESTS | | | [...] RODGERS | [address] | [place] | | | RICARDO POINT OF CARE | [address] | [address] | | | TESTS | | | [...] [facility] | [address] | [place] [address] | | | ИРИНА ANTOINE | PARK [...] [facility] | [address] | [place] [address] | | | SERVICES, CORE | PARK [...] | + + + + + | [facility] | [address] | [place] [address] | | | SERVICES, CORE | JT [...] [facility] | [address] | [place] [address] | | | SERVICES, CORE | PARK [...] | | | LABORATORY | | | PANAMANIAN | | | SERVICES, | | | [...] the MDRD equation recommended by the | [facility] | | National Kidney Disease [...] | + + + + + | [facility] | [address] [facility] | [place] [address] | | | SERVICES, [facility] | [address] | | | + [...] Professor and Chief Division of Cardiothoracic Surgery [facility] | | | [facility] - Mail Code [id number] [facility] | | | [place] [id number] | | + + + X-RAY PORTABLE CHEST 1 VIEW (03/15/2017 2:32 PM PDT) + + | Specimen | + + | | + + + + + | Narrative | Performed At | + + + | STUDY: ID CHEST 1 VIEW 03/15/17 14:21:08 COMPARISON: 03/15/17. [...] Interface - 03/15/2017 2:46 PM PDT STUDY: ID CHEST 1 | | VIEW 03/15/17 14:21:08COMPARISON: [...] + + + + | PRODUCT | [id number] | | [facility] | | | UNIT [...] + + + + | EXPIRATION | [id number] | | [facility] | | | DATE [...] + + + + | BLOOD | [id number] | | [facility] | | | PRODUCT [...] | + + + + + | [facility] | [address] | [place] [address] | | | SERVICES, | [address] [...] + + + + | PRODUCT | [id number] | | [facility] | | | UNIT [...] + + + + | EXPIRATION | [id number] | | [facility] | | | DATE [...] + + + + | BLOOD | [id number] | | [facility] | | | PRODUCT [...] | + + + + + | [facility] | [address] | [place] [address] | | | SERVICES, | [address] [...] + + + + | PRODUCT | [id number] | | [facility] | | | UNIT [...] + + + + | EXPIRATION | [id number] | | [facility] | | | DATE [...] + + + + | BLOOD | [id number] | | [facility] | | | PRODUCT [...] | + + + + + | [facility] | [address] | [place] [address] | | | SERVICES, | [address] [...] + + + + | PRODUCT | [id number] | | [facility] | | | UNIT [...] + + + + | EXPIRATION | [id number] | | [facility] | | | DATE [...] + + + + | BLOOD | [id number] | | [facility] | | | PRODUCT [...] [facility] | [address] | [place] [address] | | | SERVICES, | [address] | | | | TRANSFUSION MEDICINE | | | | + + + + + [id number] RT (03/15/2017 1:23 PM PDT) + + [...] [facility] | [address] | [place], [place] | | | JULI[facility] | [address] | [address] | | | TESTS | | | [...] [facility] | [address] | [place] | | | JULI[facility] SIL[facility] | [address] | [address] | | | TESTS | | | [...] | + + + | [facility] | [facility] DEPT OF | | [facility] [address] CARDIOLOGY | | [place], [place] [address] Ph: | | | Pt Name: RON MCKEON | | | Study Date/Time 03/15/2017 / 12:54:21 PMMRN: [id number] | | | Most recent prior: -Acc #: [id number] | | | No. previous echos: 0DOB: 1955 61 years Heart Rate: | | | 145 bpmHeight: Blood Pressure: | | | 90/67 mm/HgWeight: 249.0 lb Gender: | | | MBSA: 2.34 m2 Order ID: | | | [id number] Dry Cleaner Presser: Vahid Parmar [facility] Referring Provider: | | | Gaurav [...] Report | | | electronically signed by: [id number] Yajaira Johnson MD (03/15/2017, | | | [...] | | | |Report electronically signed by: [id number] Yajaira Johnson MD (03/15/2017, 3:38:52 PM) | | | | | | | | | | | | Final | | + + + + + | Procedure Note | + + | Interface, Cardiology Results - 03/15/2017 3:38 PM [facility] | | [facility] [address] [place] [address] | | [place], [place] [address] Pt Name: RON Neena | | MIKE Study Date/Time 03/15/2017 / 12:54:21 PMMRN: [id number] Most | | recent prior: -Acc #: [id number] No. previous echos: 0DOB: 1955 61 | | years Heart Rate: 145 bpmHeight: Blood Pressure: 90/67 | | mm/HgWeight: 249.0 lb Gender: MBSA: 2.34 m2 | | Order ID: [id number] Dry Cleaner Presser: Vahid Parmar RCSReferring Provider: | | Gaurav [...] values Report electronically signed by: | | [id number] Yajaira Johnson MD (03/15/2017, 3:38:52 PM) Final [...] | | | |Report electronically signed by: [id number] Yajaira Johnson MD (03/15/2017, 3:38:52 PM) | | | | | | | | Final | + + + + + + + | Performing | Address | City/State[facility] | Phone Number | | Organization | | | | + + + + + | [facility] | [address] | [place], [place] | | | CARDIOLOGY | [address] | [address] | | + + + + + X-RAY PORTABLE CHEST 1 VIEW (03/15/2017 12:46 PM PDT) + + | Specimen | + + | | + + + + + | Narrative | Performed At | + + + | STUDY: ID CHEST 1 VIEW 03/15/17 12:12:08 COMPARISON: None. [...] Interface - 03/15/2017 1:10 PM PDT STUDY: ID CHEST 1 | | VIEW 03/15/17 12:12:08COMPARISON: [...] + + | [facility] | [address] | [place], [place] | | | CARDIOLOGY | [address] | [address] | | + + + + + [...] [facility] | [address] | [place] [address] | | | SERVICES, | [address] [...] | + + + + + | [facility] | [address] | [place] [address] | | | ARASH, | [address] [...] [facility] | [address] | [place] [address] | | | SERVICES, CORE | [address] [...] [facility] | [address] | [place] [address] | | | SERVICES, CORE | P[address] [...] [facility] | [address] | [place] [address] | | | SERVICES, | [address] [...] | + + + + + | [facility] | [address] | [place] [address] | | | ИРИНА ANTOINE | JT [...] | + + + + + | [facility] | [address] | [place] [address] | | | SERVICES, CORE | P[address] [...] [facility] | [address] | [place] [address] | | | SERVICES, CORE | JT [...] | | | LABORATORY | | | PANAMANIAN | | | SERVICES, | | | [...] | + + + + + | [facility] | [address] | [place] [address] | | | SERVICES, CORE | [address] | | | + + + + + VK-[id number],POC RT (03/15/2017 12:16 PM PDT) + + [...] + + | [facility] | [address] | [place], [place] | | | [facility] | [facility] | [address] | | | TESTS | | | [...] | 03/15/17 at 1202, Until [facility] 04/02/17 | | | at 2030, [...] 03/24/17 at 1120, | | | Until [facility] 04/02/17 at 2031, CBG | | [...] | | | | Until [facility] 04/02/17 at 203, | | | [...] | | | | Until [facility] 04/02/17 at 2031, severe | | [...]
--- OUTSIDE RECORDS SUMMARY | ~2020-03-04 | XMS | Encounter Summary ---
Demographics + + + | Address | [address] | | | [place] [address] | + + + | Home Phone [...] [place], [place] | | | | | [address] | | + + + + + Care Team Providers + +------+ + | Care Golf Club Weighter Name | Role | Phone | + [...] | | involving | [address] | [place] | | | | | [place] | [place] | [place] | | | | | coronary | [address] | [address] | | | | | artery of | Phone: | Phone: | | | | | [place] heart | [phone] | [phone] | | | | | without | Fax: | Fax: | | | | | angina | [phone] | [phone] | | | | | pectoris | | | +--------+ + + + + + Encounter Details +--------+---------+ + + + | Date | Type | Department | Care Team | Description | +--------+---------+ + + + | 09/02/ | Office | [facility] | Carolina Lindarisa, | Coronary artery | | 2018 | Visit | MED CTR CARDIAC | MD [address] | disease, angina | | | | REHABILITATION [address] | [place], | presence | | | | [address] [place] | [place] [address] | unspecified, | | | | [place] [address] | [phone] | unspecified vessel | | | | [phone] | | or lesion type, | | | | | | unspecified whether | | | | | | [place] or | | | | | | [...] this encounter Progress Notes Gael Woo - 09/02/2018 10:00 AM PST [facility] CTR CARDIAC REHABILITATION [address] [place] [address] Cardiac Rehab 30 Day Review Date: 09/02/2018 Patient Information Patient Name: Bob Will Date of : 1955 Age: 62 y.o. Referring Provider: Randy Figueroa MD Encounter Diagnoses Code Name Primary? I25.10 Coronary artery disease, angina presence unspecified, unspecified vessel or lesi on type, unspecified whether [place] or transplanted heart Yes Z98.61 Post PTCA Cardiac Rehab Phase II Leon atment Plan Bob Will (Bob) is a 62 y.o. 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 He has recently [...] Duration: 20 mins X 2.53 METs RPE: /10 60 Day exercise assessment: Date: [...] eight: 224 BMI: 31.6 60 Day Weight: Discharge Weight: [...] Healthy Dietary Education Date: 08/03/18 -Referral to Aeronautics Teacher: Date: -DVD: Healthy Eating For Life [...] Exercise BP: 110/60 60 Day Resting BP: 60 Day Exercise [...] daily, eats low saturated fat diet. Niharika betbirgit Mellitus History of diabetes: yes Treatment: med Last hemoglobin A1C: Value: 6 Date: 04/22/18 Interventions -Evaluate blood sugar pre- and post- exercise until stable. Date: Range: -Referral to Inspector Returned Materials Date: Education Points listed below- Date Completed: [...] 4 30 Day PHQ-9: 4 60 Day PHQ-9 Discharge PHQ-9: Support systems: and [...] been through. Electronically signed by: Gael Woo, 09/02/2018 14:37 Patient Name: Bob Sims Suman/: 1955/ ly signed by Gael Woo at 09/02/2018 2:39 PM PSTdocumented in this encounter Plan [...] [place] | | | | | | [address] | | | | | | | | +--------+ + + + + | 04/16/ | Office | Cardiology | Alin Anderson | | | 2019 | Visit | | MD [address] | | | | | | [address] | | | | | | [place] [address] | | | | | | [phone] | | | | | | | | +--------+ + + + + | 04/16/ | Procedure | Cardiology | | | | 2019 | visit | | | | +--------+ + + + + | 04/25/ | Office | Cardiology | Rocio Pearl, | | | 2019 | Visit | | MD [address] | | | | | | [place] | | | | | | [address] | | | | | | | | +--------+ + + + + documented as of this encounter Visit Diagnoses + + | Diagnosis | + + | Coronary artery disease, angina presence unspecified, unspecified vessel or lesion | | type, unspecified whether k[place] or transplanted heart - Primary | + + | Post PTCA Postsurgical percutaneous transluminal coronary angioplasty status | + + documented in this encounter
--- OUTSIDE RECORDS SUMMARY | ~2020-03-04 | XMS | Encounter Summary ---
Demographics + + + | Address | [address] | | | [place] [address] | + + + | Home Phone [...] [place], [place] | | | | | [address] | | + + + + + Care Team Providers + +------+ + | Care Emd Special Education Teacher Name | Role | Phone | + +------+ + PCP | Unavailable | + +------+ + Encounter Details +--------+ + + + + | Date | Type | Department | Care Team | Description | +--------+ + + + + | 02/14/ | Hospital | [facility] | | | | 2009 | Encounter | MED CTR XRAY [address] | | | | | | [address] | | | | | | [place] [address] | | | | | | [phone] | | | +--------+ + + + [...] | | | | [address] [place] | | | | | | [address] | | | | | | | | +--------+ + + + + | 04/16/ | Office | Cardiology | Alin Anderson | | | 2019 | Visit | | MD [address] | | | | | | [address] | | | | | | [place] [address] | | | | | | [phone] | | | | | | | | +--------+ + + + + | 04/16/ | Procedure | Cardiology | | | | 2019 | visit | | | | +--------+ + + + + | 08/19/ | Office | Cardiology | Rocio Pealr, | | | 2019 | Visit | | MD [address] | | | | | | [place] | | | | | | [address] | | | | | | | | +--------+ + + + + documented as of this encounter Visit Diagnoses Not on filedocumented in this encounter"
--- OUTSIDE RECORDS SUMMARY | ~2020-03-04 | XMS | Encounter Summary ---
Demographics + + + | Address | [address] | | | [place] [address] | + + + | Home Phone [...] [place], [place] | | | | | [address] | | + + + + + Care Team Providers + +------+ + | Care Personal Injury Legal Assistant Name | Role | Phone | [...] | | CARDIOLOGY [address] | Hansa, DBA MANAGER [address] | | | | | [place], | [place], | | | | | [place] [address] | [place] [address] | | | | | [phone] | [phone] | | | | | | | [...] [place] | | | | | | [address] | | | | | | | | +--------+ + + + + | 04/16/ | Office | Cardiology | Alin Anderson | | | 2019 | Visit | | MD [address] | | | | | | [address] | | | | | | [place] [address] | | | | | | [phone] | | | | | | | [...] [place] | | | | | | [address] | | | | | | | | +--------+ + + + + documented as of this encounter Visit Diagnoses Not on filedocumented in this encounter"
--- OUTSIDE RECORDS SUMMARY | ~2020-03-04 | XMS | Encounter Summary ---
Demographics + + + | Address | [address] | | | [place] [address] | + + + | Home Phone [...] [place], [place] | | | | | [address] | | + + + + + Care Team Providers + +------+ + | Care Underwriting Support Manager Name | Role | Phone | + +------+ + | Chato Matson MD | PCP | | + +------+ + Reason for Visit + +--------+ + | Reason | Onset | Comments | | | Date | | + +--------+ + | Medication Refill | 06/28/ | | | | 2017 | | + +--------+ + Encounter Details +--------+--------+ + + + | Date | Type | Department | Care Team | Description | +--------+--------+ + + + | 06/28/ | Refill | [facility] | Jenny, | Medication Refill | | 2017 | | CARDIOLOGY [address] | ADARSH [address] | | | | | [place], | [place], | | | | | [place] [address] | [place] [address] | | | | | [phone] | [phone] | | | | | | | [...] | | | | [address] [place] | | | | | | [id number] | | | | | | | | +--------+ + + + + | 04/16/ | Office | Cardiology | Alin Anderson | | | 2019 | Visit | | MD [address] | | | | | | [address] | | | | | | [place] [address] | | | | | | [phone] | | | | | | | [...] [place] | | | | | | [address] | | | | | | | | +--------+ + + + + documented as of this encounter Visit Diagnoses Not on filedocumented in this encounter"
--- OUTSIDE RECORDS SUMMARY | ~2020-03-04 | XMS | Encounter Summary ---
Demographics + + + | Address | [address] | | | [place] [address] | + + + | Home Phone [...] + + + | Author | [facility] | + + + | Organization | [facility] | + + + | Address | Unknown | + + + | Phone | Unavailable | + + + Support + + + + + | Name | Relationship | Address | Phone | + + + + + | [place] Will | ECON | [address] | | | | | [place] [address] | | + + + + + Care Team Providers + +------+ + | Care Enterprise Systems Administrator Name | Role | Phone | [...] | | 2011 | | Center at [facility] [address] | [address] | | | | | [address] | [place], [place] | | | | | Mailcode: 8 | [address] | | | | | [facility] | [phone] | | | | | and Healing, | | | | | | [facility] | | | | | | Floor [place], [place] | | | | | | [address] | | | | | | [phone] | | | +--------+ + + + [...]
--- OUTSIDE RECORDS SUMMARY | ~2020-03-04 | XMS | Encounter Summary ---
Demographics + + + | Address | [address] | | | [place] [address] | + + + | Home Phone [...] [place], [place] | | | | | [address] | | + + + + + Care Team Providers + +------+ + | Care Stem Teacher Name | Role | Phone | + +------+ + PCP | Unavailable | + +------+ + Reason for Visit + + + | Reason | Comments | + + + | Medication Refill | | + + + Encounter Details +--------+--------+ + + + | Date | Type | Department | Care Team | Description | +--------+--------+ + + + | 09/09/ | Refill | [facility] | Randy Figueroa, | Medication Refill | | 2017 | | CARDIOLOGY [address] | MD [address] | | | | | [place], | [place], | | | | | [place] [address] | [place] [address] | | | | | [phone] | [phone] | | | | | | | [...] [place] | | | | | | [address] | | | | | | | | +--------+ + + + + | 04/16/ | Office | Cardiology | Alin Anderson | | | 2019 | Visit | | MD Cheryl [address]reg[address] | | | | | | [address] | | | | | | [place] [address] | | | | | | [phone] | | | | | | | [...] [place] | | | | | | [address] | | | | | | | | +--------+ + + + + documented as of this encounter Visit Diagnoses Not on filedocumented in this encounter"
--- OUTSIDE RECORDS SUMMARY | ~2020-03-04 | XMS | Encounter Summary ---
Demographics + + + | Address | [address] | | | [place] [address] | + + + | Home Phone [...] [place] | | | | | [address] | | + + + + + Care Team Providers + +------+ + | Care Auto Inspection Specialist Name | Role | Phone | [...] | | involving | [address] | [place] | | | | | [place] | [place], [place] | [place] | | | | | coronary | [address] | [address] | | | | | artery of | Phone: | Phone: | | | | | alat[place] heart | [phone] | [phone] | | | | | without | Fax: | Fax: | | | | | angina | [phone] | [phone] | | | | | pectoris | | | +--------+ + + + + + Encounter Details +--------+---------+ + + + | Date | Type | Department | Care Team | Description | +--------+---------+ + + + | 08/24/ | Office | [facility] | Randy Figueroa, | Coronary artery | | 2018 | Visit | MED CTR CARDIAC | MD [address] | disease, angina | | | | REHABILITATION [address] | [address] [place], | presence | | | | [address] [place] | [place] [address] | unspecified, | | | | [place] [address] | [phone] | unspecified vessel | | | | [phone] | | or lesion type, | | | | | | unspecified whether | | | | | | [place] or | | | | | | [...] of this encounter Progress Notes Lorelei Cruz, SPECIAL WARFARE COMBATANT CREWMAN - 08/24/2018 10:00 AM PSTFormatting of this note might be different fr om the original. [facility] CARDIAC REHABILITATION [address] [facility] [address] Cardiac Rehab Date: 08/24/2018 Patient Information Patient Name: Bob Will Date of : 1955 Age: 62 y.o. Encounter Diagnoses Code Name Primary? I25.10 Coronary artery disease, angina presence unspecified, unspecified vessel or lesi on type, unspecified whether al[place] or transplanted heart Yes Number of Visits [...] | 03/12/ | Office | Nephrology | [facility], | | | 2019 | Visit | | [address] | | | | | | [address] [facility] [facility] | | | | | | [address] [place] | | | | | | [address] | | | | | | | | +--------+ + + + + | 04/16/ | Office | Cardiology | MonicaAlin | | | 2019 | Visit | | MD Cheryl Arreg[address] | | | | | | [address] | | | | | | [place] [address] | | | | | | [phone] | | | | | | | [...] [place] | | | | | | [address] | | | | | | | | +--------+ + + + + documented as of this encounter Visit Diagnoses + + | Diagnosis | + + | Coronary artery disease, angina presence unspecified, unspecified vessel or lesion | | type, unspecified whether alat[place] or transplanted heart - Primary | + + documented in this encounter"
--- OUTSIDE RECORDS SUMMARY | ~2020-03-04 | XMS | Encounter Summary ---
Demographics + + + | Address | [address] | | | [place] [address] | + + + | Home Phone [...] [place], [place] | | | | | [address] | | + + + + + Care Team Providers + +------+ + | Care Electric Motor Repairer Name | Role | Phone | [...] | | involving | [address] | [place] | | | | | um[place] | [address] [address] | [place] | | | | | coronary | [address] | [address] | | | | | artery of | Phone: | Phone: | | | | | umkumi[place] heart | [phone] | [phone] | | | | | without | Fax: | Fax: | | | | | angina | [phone] | [phone] | | | | | pectoris | | | +--------+ + + + + + Encounter Details +--------+---------+ + + + | Date | Type | Department | Care Team | Description | +--------+---------+ + + + | 09/30/ | Office | [facility] | Rahullindacathy Lindarahul, | Coronary artery | | 2019 | Visit | MED CTR CARDIAC | MD [address] | disease, angina | | | | REHABILITATION [address] | [address] [place], | presence | | | | [address] [place] | [place] [address] | unspecified, | | | | [place] [address] | [phone] | unspecified vessel | | | | [phone] | | or lesion type, | | | | | | unspecified whether | | | | | | umkumi[place] or | | | | | | [...] Gael Ortega - 09/30/2018 10:00 AM PST [facility] CTR CARDIAC REHABILITATION [address] [place] [address] Cardiac Rehab 60 Day Review Date: 09/30/2018 Patient Information Patient Name: Bob Will Date of : 1955 Age: 62 y.o. Referring Provider: Randy Figueroa MD Encounter Diagnoses Code Name Primary? I25.10 Coronary artery disease, angina presence unspecified, unspecified vessel or lesi on type, unspecified whether [place] or transplanted heart Yes Z98.61 Post PTCA Cardiac Rehab Phase II Leon atment Plan Bob Will (Bob) is a 62 y.o. 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 Date: Range: -Referral to Fisheries Inspector Date: Education Points listed below- Date Completed: [...] | | | | | [place] [address] | | | | | | [phone] | | | | | | | [...] [place] | | | | | | [address] | | | | | | | | +--------+ + + + + documented as of this encounter Visit Diagnoses + + | Diagnosis | + + | Coronary artery disease, angina presence unspecified, unspecified vessel or lesion | | type, unspecified whether [place]kumi[place] or transplanted heart - Primary | + + | Post PTCA Postsurgical percutaneous transluminal coronary angioplasty status | + + documented in this encounter
--- OUTSIDE RECORDS SUMMARY | ~2020-03-04 | XMS | Encounter Summary ---
Demographics + + + | Address | [address] | | | [place] [address] | + + + | Home Phone [...] [place] | | | | | [address] | | + + + + + Care Team Providers + +------+ + | Care Straddle Buggy Operator Name | Role | Phone | [...] | | involving | [address] | [place] | | | | | mi'kmaq | [place], [place] | [place], [place] | | | | | coronary | [address] | [address] | | | | | artery of | Phone: | Phone: | | | | | mi'kmaq heart | [phone] | [phone] | | | | | without | Fax: | Fax: | | | | | angina | [phone] | [phone] | | | | | pectoris | | | +--------+ + + + + + Encounter Details +--------+---------+ + + + | Date | Type | Department | Care Team | Description | +--------+---------+ + + + | 10/12/ | Office | [facility] | Randy Figueroa, | Coronary artery | | 2019 | Visit | MED CTR CARDIAC | MD [address] | disease, angina | | | | REHABILITATION [address] | [address] [place], | presence | | | | [address] [place] | [place] [address] | unspecified, | | | | [place] [address] | [phone] | unspecified vessel | | | | [phone] | | or lesion type, | | | | | | unspecified whether | | | | | | mi'kmaq or | | | | | | [...] Gael Ortega - 10/12/2018 10:00 AM PST [facility] CARDIAC REHABILITATION [address] [place] [address] Cardiac Rehab Date: 10/12/2018 Patient Information Patient Name: Bob Will Date of : 1955 Age: 62 y.o. Encounter Diagnoses Code Name Primary? I25.10 Coronary artery disease, angina presence unspecified, unspecified vessel or lesi on type, unspecified whether mi'kmaq or transplanted heart Yes Z98.61 Post PTCA [...] | 03/12/ | Office | Nephrology | [facility], | | | 2019 | Visit | | [address] | | | | | | [address] [facility] [facility] | | | | | | [address] [...] | | | | | [place] [address] | | | | | | [phone] | | | | | | | [...] [place] | | | | | | [address] | | | | | | | | +--------+ + + + + documented as of this encounter Visit Diagnoses + + | Diagnosis | + + | Coronary artery disease, angina presence unspecified, unspecified vessel or lesion | | type, unspecified whether mi'kmaq or transplanted heart - Primary | + + | Post PTCA Postsurgical percutaneous transluminal coronary angioplasty status | + + documented in this encounter"
--- OUTSIDE RECORDS SUMMARY | ~2020-03-04 | XMS | Encounter Summary ---
Demographics + + + | Address | [address] | | | [place] [address] | + + + | Home Phone [...] [place] | | | | | [address] | | + + + + + Care Team Providers + +------+ + | Care Textile Science Technician Name | Role | Phone | [...] | | involving | [address] | [place] | | | | | [place] | [place], [place] | [place], [place] | | | | | coronary | [address] | [address] | | | | | artery of | Phone: | Phone: | | | | | [place] heart | [phone] | [phone] | | | | | without | Fax: | Fax: | | | | | angina | [phone] | [phone] | | | | | pectoris | [...] + + | 05/13/ | Hospital | [facility] | [place] | Chronic systolic | | 2018 - | Encounter | [facility] | MD Yovana [address] | congestive heart | | | | CARDIAC TELEMETRY | [address] [place], | failure (HCC); | | 05/21/ | | [address] | [place] [address] | Ischemic | | 2018 | | [place] | [phone] | cardiomyopathy; | | | | [address] | | Coronary artery | | | | [phone] | | disease involving | | | | | | [place] coronary | | | | | | artery of [place] | | | | | | heart without angina | | | | | | pectoris; Dyspnea | | | | | | on exertion; Angina | | | | | | of effort ([facility]); | | | | | | Biventricular ICD | | | | | | (implantable | | | | | | cardioverter-defibri | | | | | | llator) in place; | | | | | | Family history of | | | | | | sudden ; | | | | | | Atherosclerosis of | | | | | | [place] coronary | | | | | | artery of [place] | | | | | | heart [...] diffe rent from the original. DISCHARGE SUMMARY [facility] PATIENT NAME/: Bob Will, (1955) DATE [...] and ischemi c cardiomyopathy. Previously hospitalized at [facility] in March 2017 with thrombosed left main [...] left anterior descending. Patient subsequently admitted to [facility] in 04/2018 with symptoms of congestive [...] aspirin indefinitel y. Unfortunately patient lives in [place], and his insurance is not contracted with [facility] or heart [facility]. He will follow-up with Dr. Kay in [place]. He was scheduled with a nurse practitioner [...] Unknown GERD (gastroesophageal reflux disease) 11/12/2017 Unknown CALL CENTER RECRUITER-D (AICD) Medtronic 10/16/17 [facility] Stecker 10/19/2017 Yes Implantable defibrillator reprogramming/check 10/19/2017 Unknown H/O atrial flutter 10/19/2017 Unknown Acute on chronic systolic congestive heart failure 10/17/2017 Yes Ischemic cardiomyopathy 05/26/2017 Yes Coronary artery disease involving [place] coronary artery of [place] heart without angina pectoris 04/06/2017 Yes Acute anterior wall IN 04/03/2017 Unknown Generalized pain 03/24/2017 Unknown Abdominal [...] cardiomyopathy [I25.5 (ICD-10-CM)] 04/05/2018 10:14 - Sebastian, Horse Wrangler Narrative Transthoracic Echocardiography Report (TTE) Demographics Patient Name MIKE VELASQUEZ Room Number Neena Patient Number [id number] Date of Study 04/02/2018 Visit Number [id number] Referring Physician NEMO AGUILAR Number Date of 1955 Triage Specialist FRANNIE ISAACS RDCS Age 62 year(s) Interpreting NEMO AGUILAR Volunteer Patient Representative RANDY VINCENT MD Gender Male Nurse Stress Retail Attendant Procedure Type of Study TTE procedure: [...] Will, (1955) DATE OF SERVICE: 05/19/2018 PRIMARY SLOT SUPERVISOR: Macho Arredondo MD OIL FIELD CASER: Khurram Canas MD PROCEDURES PERFORMED: Single-Vessel Coronary [...] SonoSite and a micro cath a 14 Bol[place]ian was eventually placed in the right femoral [...] DAY IN THE EVENING aka: LIPITOR Cholecalciferol 02239 units Caps Take by mouth Once a [...] matzo crackers Avoid: Salted crackers, pretzels, popcorn; citizen of [place] toast, pancakes, muffins Desserts Ok: Ice cream, [...] sauce, regular gravy, regular salad dressin g [phone] [employer]. [address] [place] [address], [place] [address]. All righ ts reserved. This information is [...] in the hands, feet, or ankles Confusion [id number] [employer]. [address] [place] [address], [place] [address]. All righ ts reserved. This information is not intended as a substitute for professional medical care. Always follow your healthcare professional's instructions. Discharge References/Attachments Heart Failure, Discharge Instructions for (Pashto) ADARSH Stevens [address] [facility] [address] On 05/26/2018 check in at 230pm. This CHEMICAL LAB TECHNICIAN works with Dr. Kay. Time spent on discharge planning: less than 30 minutes Thank you for allowing [facility] to be involved in the care [...] to discharge and I was in direct [id number] conversation with this pat ient on several occasions prior to his discharge that day regarding his follow-up in [facility]. EXAM: Cardiovascular - RRR, no murmur heard Respiratory - CTA bilaterally Lymphatic/Extremities - no significant edema Sheath site - no hematoma IMP/PLAN: Complicated 62-year-old male with ischemic cardiomyopathy transferred from [facility] where he had presented with acute heart failure, angiogram demonstrated high-grade 95% ostialcircumflex stenosis, patent RCA,patent left main and LAD. He was transferred to [facility] for consideration of high-risk revascularization. He [...] would not cov er any follow-up at [place] or with [facility] and is referred back to his cryptologic supervisor in [place] which is Dr. Kay. He did see [...] matzo crackers Avoid: Salted crackers, pretzels, popcorn; citizen of [place] toast, pancakes, muffins Desserts Ok: Ice cream, [...] sauce, regular gravy, regular salad dressin g [phone] [employer]. [address] [place] [address]. All righ ts reserved. This information is [...] in the hands, feet, or ankles Confusion [phone] [employer]. [address] [place] [address], [place] [address]. All righ ts reserved. This information is not intended as a substitute for professional medical care. Always follow your healthcare professional's instructions. AttachmentsThe following attachments cannot be sent through Care Everywhere.Heart Failure, Discharge Instructions for (Pashto)documented in this encounter Medications at Time of [...] 0 | | | | (VITAMIN D-3) 44562 | mouth Once a week. | | [...] Will DATE OF : 1955 MED RECORD: [id number] SUBJECTIVE Mr. John was seen today regarding [...] LDL No results for input(s): PHART, PO2ART, IVP6PCZ, R0EFNZVO, BEART in the last 168 hours. DIAGNOSTIC STUDIES: Available data and images were reviewed personally. Significant results and findings are a ddressed here or in the Assessment and Plan. adult probation officer shows: Sinus rhythm with no significant arrhythmia. ASSESSMENT/PLAN Patient Active Hospital Problem List: Acute on chronic systolic congestive heart failure (10/17/2017) POA: Yes Assessment: symptomatically improved post PCI. Diuretics held today for low filling press ure Plan: advance his medications for cardiomyopathy as tolerated Coronary artery disease involving [place] coronary artery of [place] heart without angina pe ctoris (04/06/2017) POA: Yes Assessment: as described, lew post successful PCI Plan: on aspirin and Plavix Ischemic cardiomyopathy (05/26/2017) POA: Yes Assessment: continue current medical management will add spironolactone Plan: as above Please call with any questions [facility] Carli León MD - 05/20/2018 8:49 PM PDT PATIENT NAME: Bob Will : 1955: AGE: 62 y.o. PRIMARY CARE: Jeet King MD REFERRING: Dr Canas, Dr Arredondo, Dr Cassandra Meade MD [facility] Inpatient HF consult Date of Service: 05/20/2018 IMPRESSION & PLAN In brief, this 62y old male with remote tobacco use, pre-DM, HTN, ischemic CMY, HFREF (AHA stage C, NYHA III), and MVCAD w/prior STEMI c/b VF arrest and cardiogenic shock wasadmitted to [facility] for ADHF and despite excellent diuresis, [...] have any questions or concerns, please call [phone]. Carli Meade MD MPH [facility] SUBJECTIVE Feeling better today after a [...] Daily PHYSICAL EXAM Tele: SR, no ectopy [place]: n/a BP 116/68 | Pulse 66 | [...] me. Signed by: Carli Meade MD MPH [facility] 05/20/2018, 20:49 Devon Ruffin MD - [...] so he doesn't get "lost" down in [facility]. No plan for surgical intervention (other than potential LVAD) so I will sign off. Electronically signed by: Devon Trujillo M.D. [facility] 05/20/2018, 7:42 Carli León MD - 05/19/2018 8:55 AM PDT PATIENT NAME: Bob Will : 1955: AGE: 62 y.o. PRIMARY CARE: Jeet King MD REFERRING: Dr Canas, Dr Arredondo, Dr Cassandra Meade MD [facility] In[facility] HF consult Date of Service: 05/19/2018 [...] ischemic CMY. He was initially admitted to [facility] for ADHF and appropriately diure sed. [...] have any questions or concerns, please call [phone]. Carli Meade MD MPH [facility] SUBJECTIVE Good mood, happy to hear [...] (05/18/182156) PHYSICAL EXAM Tele: SR, no ectopy [place]: n/a BP 103/54 | Pulse 76 | [...] Will DATE OF : 1955 MED RECORD: [id number] SUBJECTIVE Mr. Will's was seen today regarding [...] Intake/Output Summary (Last 24 hours) at 05/19/18 0882 Last data filed at 05/19/18 0643 Gross [...] IV: sodium chloride 0.45% 1,000 mL (05/18/18 3287) PRN: HYDROcodone-acetaminophen, melatonin, nitroglycerin, traMADol LAB: Recent [...] LDL No results for input(s): PHART, PO2ART, OQC1BBX, P7MGEFNT, BEART in the last 168 hours. DIAGNOSTIC STUDIES: Available data and images were reviewed personally. Significant results and findings are a ddressed here or in the Assessment and Plan. adult probation officer shows: Sinus rhythm with no significant arrhythmia. ASSESSMENT/PLAN Patient Active Hospital Problem List: Coronary artery disease involving [place] coronary artery of [place] heart without angina pe ctoris (04/06/2017) POA: [...] change Please call with any questions [facility] aron Ang LI [facility] - 05/19/2018 8:02 AM PDTRT referral received to evaluate for home health for COPD pt fo r high risk for readmission: 62 yo male lives at home with in [place]. Insurance is [employer] Medicaid HMO. Social work to follow as needed following Complex Cardiac Team conference today. Electro nically signed by SURESH MastersSW at 05/19/2018 8:02 AM Carli León MD - 8:50 PM PDT PATIENT NAME: Bob Will : 1955: AGE: 62 y.o. PRIMARY CARE: Jeet King MD REFERRING: Missael Meade MD [facility] Consult Progress Note Date of Service: [...] of LM-LCX stent requiring PTCA again ([facility] [place]) earlier this year and now aga in [...] planning for PTCA Carli Meade MD MPH [facility] SUBJECTIVE No overnight events, note chest [...] Will DATE OF : 1955 MED RECORD: [id number] SUBJECTIVE Mr. Will was seen today regarding [...] LDL No results for input(s): PHART, PO2ART, IYC1CPU, V7VNIAKC, BEART in the last 168 hours. DIAGNOSTIC STUDIES: Available data and images were reviewed personally. Significant results and findings are a ddressed here or in the Assessment and Plan. adult probation officer shows: Normally functioning pacemaker. ASSESSMENT/PLAN 1. Chronic systolic HF: better compensated on higher dose of furosemide. 2. ICM: NYHA Class III. EF 25% per echo 05/01/2018 done at [facility] (down from 35% per echo 2017). He is currently on Entresto+metprolol succinate+noris for GDMT. 3. CAD: pt has prior hx of PCI LM and Cx 03/2017, and in 10/2017 had ANY ostial Cx and POBA L M/LAD. Most recent cath done at [facility] shows patent LAD and RCA, but [...] 10pm Please call with any questions [facility] Associated attestation - Macho Arredondo MD - [...] Will DATE OF : 1955 MED RECORD: [id number] SUBJECTIVE Mr. Will was seen today regarding [...] LDL No results for input(s): PHART, PO2ART, OJO9TKV, Q2LWWUCQ, BEART in the last 168 hours. DIAGNOSTIC STUDIES: Available data and images were reviewed personally. Significant results and findings are a ddressed here or in the Assessment and Plan. adult probation officer shows: V-Pacing 100% with rates 80-90. ASSESSMENT/PLAN [...] heart transplant team. Coronary artery disease involving [place] coronary artery of [place] heart without angina pec toris Assessment & Plan A: -Patient able to ambulate the halls without chest pain or discomfort. -Currently on Aspirin daily, and nitro as needed. P: -Plan for possible coronary revascularization after case is presented at heart team meeting . CALL CENTER RECRUITER-D (AICD) Medtronic 10/16/17 [facility] Stecker Assessment & Plan Medtronic AICD Placed in 10/2017 at [facility]. A: -Patient ventricular paced 100% this morning. No arrhythmias on telemetry. P: -No acute therapy. Continue current therapy. COPD (chronic obstructive pulmonary disease) ([facility]) Assessment & Plan A: -Patient [...] medication regimen. Please call with any questions [facility] Associated attestation - Macho Arredondo MD - 05/17/2018 11:03 PM PDTFormatting of this no te might be different from the original. PHYSICIAN ADDENDUM I reviewed today's note by ADARSH Villar EXAM: Cardiovascular - RRR, no murmur heard Respiratory - CTA bilaterally Lymphatic/Extremities - no significant edema IMP/PLAN: 62-year-old male with severe ischemic cardiomyopathy and progressive heart failure symptom s transferred from [facility] for consideration of high risk revascularization. Also, [...] Note Room # 608/608-01 Name: Bob Will [id number] Code Status: See prior hospital encounter Isolation: [...] ago. planned to discuss case at Thursday [facility] to come up with a plan. Chronic neck pain well controlled with 10mg Lynndyl q4. Indepen dent in room. VSS. Self imposed fluid restriction. Enjoyed discussion with physician interventional cardiologist this AM. Additional 20mg lasix ordered and [...] done, but we need to define the buttermaker continuous churn plan. Doubt that CABG indicated given ability to stent Circ. I told Mr. Will that it will be a few days to sort out. Electronically signed by: Devon Trujillo M.D. [facility] 05/16/2018, 10:00 Khurram Hernandez MD - 05/16/2018 8:06 AM PDT CARDIOLOGY DAILY PROGRESS NOTE Seen by ADARSH Cevallos with Khurram Canas MD on 05/16/2018 (Hospital Day: 4) PATIENT NAME: Bob Will DATE OF : 1955 MED RECORD: [id number] SUBJECTIVE Mr. Will was seen today regarding [...] LDL No results for input(s): PHART, PO2ART, SOE9VXK, P5IMPXMT, BEART in the last 168 hours. DIAGNOSTIC STUDIES: Available data and images were reviewed personally. Significant results and findings are a ddressed here or in the Assessment and Plan. adult probation officer shows: Normally functioning pacemaker. ASSESSMENT/PLAN 1. Chronic [...] EF 25% per echo 05/01/2018 done at [facility] (down from 35% per echo 2017). He is currently on Entresto+metprolol succinate for GDMT. Consider adding Eplerenone. Wait for advanced HF team recommendations. 3. CAD: pt has prior hx of PCI LM and Cx 03/2017, and in 10/2017 had ANY ostial Cx and POBA L M/LAD. Most recent cath done at [facility] shows patent LAD and RCA, but [...] Please call with any questions [facility] PHYSICIAN ADDENDUM I reviewed today's note by ADARSH Quan EXAM: Cardiovascular - RRR, no murmur heard Respiratory - CTA bilaterally Lymphatic/Extremities - trace edema IMP/PLAN: Mild dyspnea - will increase lasix a little CMP - on metoprolol succ. and entresto, will add aldactone CAD continue ASA/Plavix, consider circ PCI depending on buttermaker continuous churn CMP plan Await Advanced Heart Failure team plan - and anticipate heart team discussion on Wed AM hurram Canas MD - 05/15/2018 12:50 PM PDT CARDIOLOGY DAILY PROGRESS NOTE Seen by ADARSH Cevallos with Khurram Canas MD on 05/15/2018 (Hospital Day: 3) PATIENT NAME: Bob Will DATE OF : 1955 MED RECORD: [id number] SUBJECTIVE Mr. Will was seen today regarding [...] LDL No results for input(s): PHART, PO2ART, RGK6RSE, K7QXHNOE, BEART in the last 168 hours. DIAGNOSTIC STUDIES: Available data and images were reviewed personally. Significant results and findings are a ddressed here or in the Assessment and Plan. adult probation officer shows: Normally functioning pacemaker. ASSESSMENT/PLAN 1. Chronic systolic HF: current compensated/euvolemic on low dose furosemide. 2. ICM: NYHA Class II-III. EF 25% per echo 05/01/2018 done at [facility] (down from 35% per echo 03/2018). [...] L M/LAD. Most recent cath done at [facility] shows patent LAD and RCA, but he has a tight stenosis ostial Cx. CTS consulted re: CABG to Cx, but the pt is considered very high risk. Currently he is not having any angina. Dr Canas will review the cath films from [facility] and determine i f PCI to [...] Please call with any questions [facility] PHYSICIAN ADDENDUM I reviewed today's note by [...] it's a high risk PCI with sub-optimal buttermaker continuous churn results. It might make sense to revasc the circ now if that will help bridge us to some advanced heart failure proc edure, but I don't know how much buttermaker continuous churn benefit there will be to just doing a circ PCI wi thout a longer term plan. Will await the heart failure team's input and will want to discus s him at heart team meeting this week. Danna Rich RN - 05/15/2018 12:42 PM PDT 6N / 6S Shift Summary Note Room # 608/608-01 Name: Bob Will [id number] Code Status: See prior hospital encounter Isolation: [...] neck pain well controll ed with 10mg Lynndyl q4. Independent in room. VSS. Self imposed [...] Note Room # 608/608-01 Name: Bob Will [id number] Code Status: See prior hospital encounter Isolation: [...] neck pain well controlled with 10m g Lynndyl q4. Independent in room. VSS. Self imposed [...] Pain: Chronic neck pain controlled with 10mg Lynndyl q4f Activity: Independent in room Therapy involved?: Janel Ventura ARNP - 05/14/2018 9:31 AM PDTFormatting of this note might be different from the [facility] CARDIOLOGY DAILY PROGRESS NOTE Seen by ADARSH Yoon with Macho Arredondo MD on 05/14/2018 (Hospital Day: 2) PATIENT NAME: Bob Will DATE OF : 1955 MED RECORD: [id number] SUBJECTIVE Mr. Will was seen today regarding [...] LDL No results for input(s): PHART, PO2ART, YGA0NEN, Y8JGPNEV, BEART in the last 168 hours. DIAGNOSTIC STUDIES: Available data and images were reviewed personally. Significant results and findings are a ddressed here or in the Assessment and Plan. adult probation officer shows: Sinus rhythm with no significant arrhythmia. ASSESSMENT/PLAN COPD (chronic obstructive pulmonary disease) (HCC) Assessment & Plan Chronic condition. Chronic systolic congestive heart failure (HCC) Assessment & Plan No indication of acute volume overload. CALL CENTER RECRUITER-D (AICD) [employer] 10/16/17 [facility] Stecker Assessment & Plan BiV paced this am. Placen in 10/2017 at [facility]. No arhythmia noted on telemetry. Ischemic cardiomyopathy Assessment & Plan 03/2018: LVEF of 35%. 04/2018: LVEF of 25%. Done at [facility] while admitted for CHF-pulmonary edema, and shortness o f breath. GDMT:Fuorsomide, metoprolol XL, and Entresto. Creatinine stable 1.23-could consider spironolactone. NYHA II Coronary artery disease involving [place] coronary artery of [place] heart without angina pec toris Assessment & Plan 03/2017: transferred from [place] to [facility] with thrombosed left main artery treated with PCI of the left main into the LAD and subsequent PCI of left circumflex. Acute cardiogenic shock status post ECMO. Left atrial clot, previously on coumadin. 10/2017 when he was admitted at [facility] for pneumonia and unstable angina and underwent drug-el uting stent to ostial left circumflex and angioplasty of the distal left main with balloon i nflation extending into the left anterior descending. Plan: 1. Awaiting record from [facility]. 2. Surgical consult. Please call with any questions [facility] Associated attestation - Macho Arredondo MD - 05/14/2018 9:11 PM PDTFormatting of this no te might be different from the original. PHYSICIAN ADDENDUM I reviewed today's note by ADARSH Lomas EXAM: Cardiovascular - RRR, no murmur heard Respiratory - CTA bilaterally Lymphatic/Extremities - no significant edema IMP/PLAN: Patient seen by Dr. Trujillo today, more information available regarding his two weeks stay at [facility] He did have an angiogram late April at [facility], which is now available in [facility]. [...] was on Entresto before his admission to [facility], we will probably try to re-challenge him with losartan after increasing metoprolol succinate documented in this encounter H&P Notes Macho Arredondo MD - 05/13/2018 8:21 PM PDTFormatting of this note might be different fro m the original. CARDIOLOGY ADMISSION HISTORY AND PHYSICAL [facility] PATIENT NAME/: Bob Will, (1955) DATE OF ADMISSION: 05/13/2018 DATE OF SERVICE: 05/13/2018 ADMITTING PHYSICIAN: Macho Arredondo MD ADMITTING DIAGNOSIS/CHIEF COMPLAINT: Heart failure, ischemic cardio myopathy HCNW PRIMARY SLOT SUPERVISOR: Has not previously been seen in our [...] March 2017 when he was transferred from [place] to [facility] with thrombosed left main artery treated with PCI of the left main into the LAD and subsequent PCI of left c ircumflex. His hospital course at that time was complicated by acute cardiogenic shock statu s post ECMO. Left atrial clot, previously on coumadin. He was again admitted at [facility] in 10/09 018 when he was admitted [...] succinate. Despite this, he was admitted a [facility] several days ago, with recurrent heart failure [...] Information during his most recent hospitalization from [facility] is not readily available. Darshan reyes [...] Medical History: Diagnosis Date Acute anterior wall IN (HCC) 04/03/2017 Angiography and stent 03/15/2017 successful [...] Cor Angio; Surgeon: Monse Ross MD; Location: [facility] CV LAB CARDIAC CATHERIZATION N/A 10/03/2017 Procedure: CV Cor Angio; Surgeon: Delmer Dai MD; Location: [facility] CV LAB ELBOW SURGERY Left GALLBLADDER SURGERY NASAL SEPTUM SURGERY UPPER GASTROINTESTINAL ENDOSCOPY N/A 10/05/2017 Procedure: EGD; Surgeon: Terry Weir MD; Location: [facility] MEDICAL PROCEDURE UNIT Medications: Prescriptions Prior to Admission Medication Sig Dispense Refill aspirin 81 MG tablet Take 81 mg by mouth Daily. atorvaSTATin (LIPITOR) 80 MG tablet TAKE ONE TABLET BY MOUTH EVERY DAY IN THE EVENING 3 0 tablet 5 Cholecalciferol (VITAMIN D-3) 18411 units CAPS Take by mouth Once a [...] Atrial pacing Echocardiogram: May 01, 2018 from [facility] 1. Overall left ventricular systolic function [...] Coronary angiogram from October 03, 2017 from [facility] in [place] HEMODYNAMICS: LEFT HEART: Left ventricular end diastolic [...] 5. On-ST segment elevation myocardial infarction at [facility] PLAN: 1. Currently chest pain free 2. Currently he is euvolemic. 3. Discontinue intravenous heparin 4. Subcutaneous heparin 5. Cardiothoracic surgery consultation regarding suitability for revascularization versus f urther coronary stenting Thank you for allowing [facility] to be involved in the care of this patient. Please call with any questions . [facility] Patient Care Team: Chato Matson MD as PCP - General (Family Medicine) Randy Figueroa MD as Physician (Cardiology) ADARSH Stevens as Nurse Practitioner (Nurse Practitioner) documented in this en counter Procedure Notes Khurram Canas MD - 05/19/2018 4:54 PM PDTAssociated Order(s): CV CARDIAC PROCEDURECORON MACIEJ CATH and INTERVENTION REPORT PATIENT NAME/: Bob Will, (1955) DATE OF SERVICE: 05/19/2018 PRIMARY SLOT SUPERVISOR: Randy Figueroa MD OIL FIELD CASER: Khurram Canas MD PROCEDURES PERFORMED: Single-Vessel Coronary [...] SonoSite and a micro cath a 14 Bolivian was eventually placed in the right femoral [...] renal failure Thank you for allowing [facility] to be involved in the care of this patient. Please call with any questions . [facility] PRIMARY CARE PROVIDER: Jeet King MD Performed at [facility] documented in this encounter Consult Notes [...] [facility] Inpatient Advanced Heart Failure Consult Date of Service: 05/17/2018 IMPRESSION & RECOMMENDATIONS It was a pleasure to see Mr Estrella at the request of Missael Marshall and Arnulfo. [facility], Mr Will is a 62 y.o. year [...] Dr Canas, Dr Arredondo and Marimar Torres CHEMICAL LAB TECHNICIAN, as well as t he patient. The advanced heart failure service will continue to follow along. Should you h ave any questions or concerns, I can be reached through the office or answering service at [phone]. Carli Meade MD MPH [facility] Trans[facility] [place] [facility] Consult Question: Does Mr Will need [...] report, had repeat VF arrest in the labor economist requiri ng emergent PCI of LM into both LAD and a large co-dominant LCX. He was then supported by [place] BP and [place] ECMO peripherally at [facility]. He was seen in follow up with eventual WEI leading to f inding of persistent moderate to severe LV systolic dysfunction, stage C HFREF, LBBB and ear ly ISRS of LM-LCX requiring repeat PTCA to LCX and Medtronic CALL CENTER RECRUITER-D. Since then, Ashok has not had durable [...] have reviewed all available imaging studies in [employer] and pushed them into [employer] . Of note, I susepct his nuclear viability study supports LCX revasc as his anatomy is codom inant and the LCX provides significant inferior circulation. He does not have evidence of vi ability or perfusion to anterior (LAD) territory. It does appear he may have lost a high antonio g vs ramus at time of PCI in 09/2017. Echo from [facility] very limited, likely due to study being transferred and images being downs ized. No evidence of marked valve pathology. LVEF globally severely depressed. No evidence o f aneurysm or thrombus w/use of definity. All Component Based Labs 05/17/18 0348 ANION GAP 10 B-TYPE NATRIURETIC PEPTIDE 224 Comment: Performed by [facility] [address] [place] [address] (H) BUN 27(H) Calcium 8.7 Chloride 105 Carbon dioxide 27 Creatinine 1.89(H) Estimated GFR 37 Comment: eGFR<60 consistent with impaired kidney function. Performed by [facility] [address] [place] [address] (L) GLUCOSE 103(H) K 4.6 NA 142 [...] me. Signed by: Carli Meade MD MPH [facility] 05/17/2018, 22:31 Twan Doyle Chaplain - 05/16/2018 12:04 PM PDTAssociated Order(s): IP CONSULT TO SPIRITUAL CARESpiritual Care Encounter (CARE note): C Critical information/concern: Responded to spiritual care consult; per RN, pt has been t earful, has "many stresses in his life," and needed someone to talk to. When I visited, pt w as hopeful and [id number]. He shared that he has been in and out of the hospital for the last 2 years. Pt lives in [place], and said it's been stressful for his , who is here in [place] in their RV, but is staying in [...] ADARSH Mai - 05/15/2018 12:21 PM PDT [facility] PATIENT NAME: Bob Will [...] 2017 w hen he first presented to [facility] with an acute anterior STEMI. He was found to have severe left main disease and underwent ANY to the distal LM/LAD and LM/LCX. At that t nhi he was in critical condition requiring placement of an IABP and multiple pressors. He w as then transferred to [facility] for further treatment and possible surgical revascularization. [...] LBBB and was diagnosed with recurrent anterior IN along with his pneumoni a. His troponin [...] were made to transfer the patient to [place] but he declined and was transferred to [facility]. It appears that t he patient did require support with the placement of an Impella. Repeat Alvaro ANY to ostial LCX and PTCA to distal LM into LAD along with removal of the Impella was performed at [facility]. Also, during that admission a Medtronic biventricular ICD was implanted. The patient states that he continued to have episodes of decompensated heart failure. He o nce again developed recurrent dyspnea and was admitted to [facility]. After 2 week s of therapy he was then transferred to [facility]. While there a repeat viability study was pe rformed continuing to show no viability to the anterior wall. He also underwent a repeat co ronary angiogram showing tight restenosis of the ostial LCX. He was then transferred to [facility] for possible surgical revascularization with LVAD support. [...] and LM/LCx bifur cations 03/2017 transferred to [facility] in critical condition with IABP and multiple [...] the ostial LCX (as reviewed by a [facility] surgical team) 2. Ischemic cardiomyopathy Please [...] LIST: Active Problems: Coronary artery disease involving [place] coronary artery of [place] heart without angina p ectoris Ischemic cardiomyopathy CALL CENTER RECRUITER-D (AICD) Medtronic 10/16/17 [facility] Chronic systolic congestive heart failure COPD (chronic obstructive pulmonary disease) Past Medical History: Diagnosis Date Acute anterior wall IN (HCC) 04/03/2017 Angiography and stent 03/15/2017 successful [...] Cor Angio; Surgeon: Monse Ross MD; Location: [facility] CV LAB CARDIAC CATHERIZATION N/A 10/03/2017 Procedure: CV Cor Angio; Surgeon: Delmer Dai MD; Location: [facility] CV LAB ELBOW SURGERY Left GALLBLADDER SURGERY NASAL SEPTUM SURGERY UPPER GASTROINTESTINAL ENDOSCOPY N/A 10/05/2017 Procedure: EGD; Surgeon: Terry Weir MD; Location: [facility] MEDICAL PROCEDURE UNIT No family history [...] of this note have been dictated using [employer] voice recognition s oftware. It will be [...] additi on. Mr. Will had a massive IN and underwent left main/LAD/circumflex stenting and was [...] the reward. This was all done in [place] at [facility]. A couple of weeks ago he presented with worsening heart failure having weight gain and prog ressive dyspnea over a couple of weeks prior to his admission. His ejection fraction was fo und to be reduced to 20-25%. He underwent repeat coronary angiography at [facility] and was fou nd to have [...] rt. The patient therefore was transferred to [place] and admitted this morning by Dr. Arredondo. [...] signed by: Devon Trujillo M.D. CardioThoracic Surgery [facility] 05/14/2018 16:28 [facility] Cardiothoracic Surgical Consult Date of Consultation: 05/14/2018 NAME/AGE/: Bob Will 62 y.o. male (1955) ADMISSION DATE: 05/13/2018 Primary Volunteer Patient Representative: Dr. Figueroa Requesting/Referring Physician: Dr. Arredondo Primary Care Provider: Chato Matson MD REASON FOR CONSULTATION 2-vessel CAD History of Present Illness Mr. Will is a 62 y.o. male with a history of CAD that involves an IN with cardiac arre st, IABP, and even ECMO in March of last year. At that time, he received stents to his left m ain, LAD, and circumflex arteries. He subsequently underwent repeat stenting of the ostial circumflex in October 2017. He was transferred to [facility] yesterday for evaluation for CABG after a cath last week showed significant in-stent restenosis at the take-offs of his LAD and circu mflex arteries. He apparently also had a nuclear medicine stress test, echocardiogram, and v iability study at [facility] prior to transfer here and our [...] but stopped at the time of his IN last year. Aside from his arrest, he's never had any r espiratory problems that have required intervention, does not use any inhalers, and has good activity tolerance. thinks she may have been told he could have had a stroke at the ti me of his IN, but from what I gather this was probably during the acute setting around the [facility] he was on ECMO and she's never [...] and is a large, dominant artery. 03/15/2017: IN, cardiogenic shock -> IABP, ECMO. Stents to left main, LAD, circumflex. 2. Ischemic cardiomyopathy History of cardiac arrest 03/15/2017. AICD in place, no defibs since his initial defibrillati ons at time of arrest. LVEF 40%, decline to 30% 3. Acute renal insufficiency in chronic kidney disease Since the time of his IN. Serum Cr 1.8 today, baseline unknown. STS [...] Diagnosis Date Noted PAD (peripheral artery disease) ([facility]) Priority: High Note Last Updated: [...] EP study for inducible ventricular tachycar antonio. CALL CENTER RECRUITER-D (AICD) Medtronic 10/16/17 [facility] Wilner 10/19/2017 Note Last Updated: 11/11/2017 MODEL NAME MODEL# SERIAL# DATE IMPLANTED GENERATOR Medtronic [id number] 10/16/17 RV LEAD Medtronic [id number] 10/16/17 A LEAD Medtronic [id number] 10/16/17 Coronary Sinus LEAD Medtronic [id number] 10/16/17 Indication: ischemic cardiomyopathy with reduced EF 30-35% Implantable defibrillator reprogramming/check 10/19/2017 H/O atrial flutter 10/19/2017 Chronic systolic congestive heart failure (HCC) 10/17/2017 Paroxysmal atrial flutter (HCC) 10/12/2017 Pulmonary edema 10/03/2017 Ischemic cardiomyopathy 05/26/2017 Note Last Updated: 04/05/2018 S/P Medtronic CALL CENTER RECRUITER-D 10-16-17 Dr Darby, [facility] Pet Scan 10/13/17 shows No Significant tracer [...] continued to deteriorate. Coronary artery disease involving [place] coronary artery of [place] heart without angina pectoris 04/06/2017 Note Last [...] with normal respiratory collapse. Acute anterior wall IN (HCC) 04/03/2017 Note Last Updated: 10/20/2017 Transthoracic [...] Medical History: Diagnosis Date Acute anterior wall IN (HCC) 04/03/2017 Angiography and stent 03/15/2017 successful [...] Cor Angio; Surgeon: Monse Ross MD; Location: [facility] CV LAB CARDIAC CATHERIZATION N/A 10/03/2017 Procedure: CV Cor Angio; Surgeon: Delmer Dai MD; Location: [facility] CV LAB ELBOW SURGERY Left GALLBLADDER SURGERY NASAL SEPTUM SURGERY UPPER GASTROINTESTINAL ENDOSCOPY N/A 10/05/2017 Procedure: EGD; Surgeon: Terry Weir MD; Location: [facility] PROC[facility]URE [facility] Allergies: No Known [...] BID IV Meds: Imaging: No results found. [facility] [address], [address] [place] [address] Portions of this chart may have been created with [employer] voice recognition software. Occasi onal wrong-word or sound-alike substitutions may have occurred due to the inherent canseco itations of voice recognition software. Please read the chart carefully and recognize, using context, where these substitutions have occurred. documented in this en counter Miscellaneous Notes Treatment Plan - Carli Meade MD - 05/21/2018 9:35 AM PDT[facility] Patient scheduled with laCarli MD, for Adv Heart Failure follow up [...] Note Room # 608/608-01 Name: Bob Will [id number] Code Status: Full Code Isolation: None Dx/Tx: [...] Summary Information: Pt. Admitted on 05/17 from [facility] with recurrent HF with recurrent SOA and pulmonary edema. Transferred to assess potential for surgical revasculari zation to imrpove LV systolic dysfunction. History of CKD, Diabetes, LOUISA CAD. On 05/19 an int ra-vascular S and angioplasty was performed only to the circumflex because of a 95% stenosis of the circumflex. Neuro: AOx4 Resp: Lungs clear/dim LDAs R hand PIV Cardiac: Ventricular Rhythm: (d-pekhikueet-bjeme) (05/21/18 020) Active Gtts: Abnormal Labs/ Treatment: [...] chronic neck/back pain. Activity: Independent lan of [facility] vikashvaleria, Haroldo Pierce RN - 05/20/2018 11:55 PM PDTPt. Requested to sleep and be assessed when he wa kes. No BP was taken. Pt. Has unlabored Breathing, AOx4, moves independently in bed. No c/o pain. Pleasant but re quested to sleep and be reassessed at a later time. Given lack of sleep the previous night, request granted. lan of [facility] PraveenaSony contreras RN - 05/20/2018 7:35 PM [...] Note Room # 608/608-01 Name: Bob Will [id number] Code Status: Full Code Isolation: None Dx/Tx: [...] Note Room # 608/608-01 Name: Bob Will [id number] Code Status: Full Code Isolation: None Dx/Tx: [...] hematoma Pain: Activity: Therapy involved?: lan of [facility] - Heather cornelius RD - 05/20/2018 11:20 AM PDTStable nutritional status per available paramete rs. PO intake: 100% of low fat, 3-4 g Na meals; Wt fluctuates, but over all stable x 1 year ; Last BM 05/18. Vit D 44.8 on 05/18/18. Rounding as needed with team. Electronically signed by: Heather Garcia RD 05/20/2018 11:22 [phone] dave d by Heather Garcia RD at 05/20/2018 11:22 AM PDTPlan of [place] - Harolod Chan RN - 4:25 AM PDT Problem: [...] Note Room # 608/608-01 Name: Bob Will [id number] Code Status: Full Code Isolation: None Dx/Tx: [...] Summary Information: Pt. Admitted on 05/17 from [facility] with recurrent HF with recurrent SOA [...] / 6S Shift Summary Note Room # [facility] ODILIA RAMON/[facility] ODILIA Mirza* Name: Bob Will [id number] Code Status: Full Code Isolation: None Dx/Tx: PCI Surgery/ Procedure: Vitals: 05/19/18 1705 05/19/18 1710 05/19/18 1715 05/19/18 1717 BP: 105/61 105/56 106/58 106/58 Pulse: 64 63 71 65 Resp: 15 16 14 12 Temp: TempSrc: SpO2: 96% 97% 97% 99% Weight: Height: Shift Summary Information: Pt admitted on 05/17 from [facility] with recurrent heart failure with recurrent SOB, [...] at ostial circ in March 2017 at [facility] in [place]. Then had a 3.0 x 13 [place] ANY in pr ox circ, extending back into LM with post dilatation with 3.5 NC balloon in 2017 at [facility]. Anticipate doing IVUS guided PTCA [...] well, the patien t elected to proceed. [place] [employer] Grade: ASA 4 - A patient with severe systemic disease that i s a constant threat to life Mallampati Class: III (base of uvula and soft palate) [facility] [phone] lan of Care - Beckie Chambers RN [...] Note Room # 608/608-01 Name: Bob Will [id number] Code Status: See prior hospital encounter Isolation: [...] on RA, 1-2L 02 via NC at [facility] for comfort LDAs PIV intact, infusing Cardiac: [...] cane Therapy involved?: lan of Care - [facility] Iliana boateng RN - 05/19/2018 5:33 [...] Note Room # 608/608-01 Name: Bob Will [id number] Code Status: See prior hospital encounter Isolation: [...] Height: Shift Summary Information: Pt transferred from [facility]. HF- SOB, pulmonary edema. P mikayla: NPO [...] Note Room # 608/608-01 Name: Bob Will [id number] Code Status: See prior hospital encounter Isolation: None Dx/Tx: CHF Surgery/ Procedure: Vitals: 05/18/18 1048 05/18/18 1130 05/18/18 1355 05/18/18 1618 BP: 101/55 104/53 101/60 Pulse: 69 67 69 68 Resp: 16 18 Temp: 36.4 C (97.5 F) (!) 30.2 C (86.3 F) TempSrc: Temporal Temporal SpO2: 94% 93% 94% Weight: Height: Shift Summary Information: Pt admitted on 05/17 from [facility] with recurrent heart failure with recurrent SOB, [...] cane Therapy involved?: lan of Care - Md Beckie mishra RN - 05/18/2018 11:40 AM [...] Note Room # 608/608-01 Name: Bob Will [id number] Code Status: See prior hospital encounter Isolation: [...] on rest. 1-2L 02 via NC at [facility] for comfort LDAs PIV intact, flushes well [...] Note Room # 608/608-01 Name: Bob Will [id number] Code Status: See prior hospital encounter Isolation: [...] Shift Summary Information: Slept most of shift. Lynndyl PRN for chronic neck pain. Awaiting c [...] (Incisions/ Wounds/ Edema) Pain: Chronic neck pain. Lynndyl PRN Activity: Independent Therapy involved?: lan of [...] Note Room # 608/608-01 Name: Bob Will [id number] Code Status: See prior hospital encounter Isolation: None Dx/Tx: HF, CAD, Hx IN/stents Surgery/ Procedure: care conference Thursday Vitals: 05/17/18 [...] possibly LVAD vs transplant w/u. Takes prn Lynndyl 10mg for chronic pain. Denies pain. VSS. Spouse at bedside this evening. Ambulating independently in room/hyde c cane. Allegra n for PFT's tomorrow at 11:00. Neuro: A/o Resp: RA. Using 1-2 L NC at night for comfort LDAs PIV X1 Cardiac: 100% V-paced. EF 25%. Abnormal Labs/ Treatment: Creatinine 1.89, see labs GI: wnl : wnl Skin: (Incisions/ Wounds/ Edema) Intact Pain: Prn Lynndyl 10 mg for chronic back pain Activity: [...] Note Room # 608/608-01 Name: Bob Will [id number] Code Status: See prior hospital encounter Isolation: [...] AM PDTAssociated Problem(s): Coronary artery disease involving [place] coronary artery of [place] heart without angina pectorisA: -Patient able to ambulate the halls without chest pain or discomfort. -Currently on Aspirin daily, and nitro as needed. P: -Plan for possible coronary revascularization after case is presented at heart team meeting . nessamen t & Plan Note - Marimar Torres ARNP - 05/17/2018 10:37 AM PDTAssociated Problem( s): CALL CENTER RECRUITER-D (AICD) Medtronic [facility]. A: -Patient ventricular paced 100% this morning. [...] Note Room # 608/608-01 Name: Bob Will [id number] Code Status: See prior hospital encounter Isolation: [...] LVAD vs heart tr ansplant. Hx ICD, IN. A&O. RA. VSS. Neuro: A&O Resp: RA. 1-2 L at night for comfort LDAs PIV Cardiac: 100% P-tracking Active Gtts: Abnormal Labs/ Treatment: GI: Active Active Orders Diet Diet fat and cholesterol modified; sodium restricted 3-4 gm; Effective Now : Voiding Skin: (Incisions/ Wounds/ Edema) Pain: Lynndyl PRN for neck pain Activity: Independent with [...] Note Room # 608/608-01 Name: Bob Will [id number] Code Status: See prior hospital encounter Isolation: [...] for LVAD vs heart trans plant. Hx IN (age 40's), stents, HTN, HLD, and strong [...] Note Room # 608/608-01 Name: Bob Will [id number] Code Status: See prior hospital encounter Isolation: [...] t his shift, up IND w/ cane. Lynndyl 5 x2 Q4hr for pain, well controlled. [...] Skin: (Incisions/ Wounds/ Edema) Intact Pain: PRN Lynndyl 5mg x2 Q4 hr for chronic back [...] Note Room # 608/608-01 Name: Bob Will [id number] Code Status: See prior hospital encounter Isolation: [...] Voiding Skin: (Incisions/ Wounds/ Edema) Intact Pain: Lynndyl 5 x2 Q4hr, chronic back pain Activity: [...] 35%. 04/2018: LVEF of 25%. Done at [facility] while admitted for CHF-pulmonary edema, and shortness o f breath. GDMT:Fuorsomide, metoprolol XL, and Entresto. Creatinine stable 1.23-could consider spironolactone. ssessment & Plan Traci - Janel Hester ARN P - 05/14/2018 9:21 AM PDTAssociated Problem(s): Coronary artery disease involving [place] c oronary artery of [place] heart without angina pectoris03/2017: transferred from [facility] with thrombosed left main artery treated with PCI of the left main into the LAD and s ubsequent PCI of left circumflex. Acute cardiogenic shock status post ECMO. Left atrial clot, previously on coumadin. 10/2017 when he was admitted at [facility] for pneumonia and unstable angina and underwent drug-el uting stent to ostial left circumflex and angioplasty of the distal left main with balloon i nflation extending into the left anterior descending. ssessment & Plan Janel Coleman ARNP - 05/14/2018 9:17 AM PDTAssociated Problem(s): CALL CENTER RECRUITER- D (AICD) Medtronic 10/16/17 [facility] SteckerBiV paced this am. Placen in 10/2017 at [facility]. No arhythmia noted on telemetry. Electronically signed [...] Note Room # 604/604-02 Name: Bob Will [id number] Code Status: See prior hospital encounter Isolation: [...] (Incisions/ Wounds/ Edema) dry and intact Pain: Lynndyl 10mgs q4 for chronic neck pain Activity: [...] Note Room # 604/604-02 Name: Bob Will [id number] Code Status: See prior hospital encounter Isolation: None Dx/Tx: Surgery/ Procedure: Vitals: 05/13/18 1654 05/13/18 2224 BP: 108/60 121/69 Pulse: 73 83 Resp: 16 16 Temp: 36.4 C (97.6 F) 35.8 C (96.4 F) TempSrc: Temporal Temporal SpO2: 94% 91% Weight: 94.6 kg (208 lb 8.9 oz) Height: 1.753 m (5' 9") Shift Summary Information: Arrived from [facility] via ambulance at 1630. [facility] notified of his arrival. Arrived with Heparin gtt infusing at 16.5 ml/hr. Denied any ch est pain. Only complaint was neck pain which is chronic. Lasix was given prior to his depar ture at [facility] and the EMT staff stated he [...] QS Skin: (Incisions/ Wounds/ Edema) intact Pain: Lynndyl 5 X 2 Q4 for chronic neck [...] PATRICK | | | | | | [id number] | | | | | | | | +--------+ + + + + | 04/16/ | Office | Cardiology | Alin Anderson | | | 2019 | Visit | | MD [address] | | | | | | [address] | | | | | | [place] [address] | | | | | | [phone] | | | | | | | [...] [place] | | | | | | [address] | | | | | | | [...] starting 05/21/2018 | | | | | [place] coronary | until 05/21/2019 | | | | | artery of [place] | | | | | | heart without angina | | | | | | pectoris | | + +------+--------+ + + + + +--------+ + + | Name | Type | Priori | Associated Diagnoses | Order Schedule | | | | ty | | | + + +--------+ + + | [facility] | Outpatient | Routin | Coronary artery | Ordered: 05/21/2018 | | | Referral | e | disease involving | | | | | | [place] coronary | | | | | | artery of [place] | | | | | | heart [...] | | | | | failure type ([facility]) | | + +--------+ + + + [...] | | | | | failure type ([facility]) | | + +--------+ + + + | CV [facility] | Routin | 05/19/2018 | Congestive heart | Results for this | | | e | 5:14 PM | failure, unspecified | procedure are in the | | | | PDT | HF chronicity, | results section. | | | | | unspecified heart | | | | | | failure type ([facility]) | | + +--------+ + + + [...] PROVIDE NCE | | | | by [facility] [address], | | [place]CRED | | | | [place] [address] | | HEART | | | |Performed by [facility] [address], [place] [address] | | MEDICAL | | | | [...] [address] | [place] [address] | | | [facility] | | | | [...] | | MEDICAL | | | | [facility] [address], | | CENTER | | | | [place] [address] | | LABORATORY | | | | [...] + + | [facility] | [address] [place] | [place] [address] | | | [facility] | | | | | LABORATORY CERNER [...] BUCK | | | | Performed by [facility] [address] | | [address] | [...] | [place] | | | HEART [facility] | | | | | [...] PROVIDE NCE | | | | by [facility] [address], | | SACRED | | | | [place] [address] | | HEART | | | |Performed by [facility] [address], [place] [address] | | MEDICAL | | | | [...] + + | BUCK BASHIR | [address] | [place] [address] | | | [facility] | [...] | | MEDICAL | | | | [facility] [address], | | CENTER | | | | [place] [address] | | LABORATORY | | | | [...] + + | BUCK BASHIR | [address] | [place] [address] | | | [facility] | | | | | BHARATI HERNÁNDEZ [...] | TRACEMASTER | | Duration:196 msP Horizontal Nardin:-6 degP Front [place]ard[place]:72 degQ Onset:508 | | | msQRSD Interval:148 msQT Interval:500 msQTcB:508 msQTcF:505 msQRS | | | Horizontal Nardin:217 degQRS Nardin:167 degI-40 Horizontal [place]ardin:188 | | | degI-40 Front [place]ard[place]:148 degT-40 Horizontal [place]ard[place]:231 degT-40 Front | | | Nardin:163 degT Horizontal [place]ard[place]: degT Wave [place]ard[place]:15 degS-T Horizontal | | | Nardin:67 degS-T Front [place]ardin:-59 degSeverity:- ABNORMAL ECG | | | -INTERP:ATRIAL-SENSED VENTRICULAR-PACED COMPLEXESElectronically signed | | | by: , 05-20-2018 05:48:28 | | |QTcB:508 ms | | |QTcF:505 ms | | |QRS Horizontal Nardin:217 deg | | |QRS Nardin:167 deg | | |I-40 Horizontal Nardin:188 deg | | |I-40 Front Nardin:148 deg | | |T-40 Horizontal [place]ardin:231 deg | | |T-40 Front [place]ardin:163 deg | | |T Horizontal [place]ard[place]: deg | | |T Wave [place]ard[place]:15 deg | | |S-T Horizontal [place]ard[place]:67 deg | | |S-T Front [place]ardin:-59 deg | | |Severity:- ABNORMAL ECG - | | |INTERP:ATRIAL-SENSED VENTRICULAR-PACED COMPLEXES | | |Electronically signed by: , 05-20-2018 05:48:28 | | + + + + + + + + | Performing | Address | City/State/Zipcode | Phone Number | | Organization | | | | + + + + + | [facility] | [address] | [place] [address] | [phone] | + + + + + CV [...] Will, (1955) MEDICAL RECORD | | NUMBER: [id number] DATE OF SERVICE: 05/19/2018 PRIMARY SLOT SUPERVISOR: Macho | | MD Arnulfo OIL FIELD CASER: Khurram Canas MD PROCEDURES | | PERFORMED: [...] SonoSite and a micro cath a 14 [place] was eventually placed in | | the [...] | | failure Thank you for allowing [facility] to be involved in the care | | of this patient. Please call with any questions . Electronically | | signed by: Khurram Canas MD on 05/19/2018 at 16:54 [facility] | | PRIMARY CARE PROVIDER: Jeet King MD Performed at [facility] | | [facility] | + + | Addendum by Khurram Canas MD on 05/19/2018 5:23 PM CORONARY CATH and INTERVENTION | | REPORT PATIENT NAME/: Bob Will, (1955) MEDICAL RECORD | | NUMBER: [id number] DATE OF SERVICE: 05/19/2018 PRIMARY SLOT SUPERVISOR: Macho | | MD Arnulfo OIL FIELD CASER: Khurram Canas MD PROCEDURES | | PERFORMED: [...] SonoSite and a micro cath a 14 Bol[place] was eventually placed in | | the [...] | failure Thank you for allowing [facility] to be involved in the care | | of this patient. Please call with any questions . Electronically | | signed by: Khurram Canas MD on 05/19/2018 at 16:54 [facility] | | PRIMARY CARE PROVIDER: Jeet King MD Performed at [facility] | | [facility] | + + | Addendum by Khurram Canas MD on 05/19/2018 5:21 PM CORONARY CATH and INTERVENTION | | REPORT PATIENT NAME/: Bob Will, (1955) MEDICAL RECORD | | NUMBER: [id number] DATE OF SERVICE: 05/19/2018 PRIMARY SLOT SUPERVISOR: Macho | | MD Arnulfo OIL FIELD CASER: Khurram Canas MD PROCEDURES | | PERFORMED: [...] SonoSite and a micro cath a 14 Bolivian was eventually placed in | | the [...] | | failure Thank you for allowing [facility] to be involved in the care | | of this patient. Please call with any questions . Electronically | | signed by: Khurram Canas MD on 05/19/2018 at 16:54 [facility] | | PRIMARY CARE PROVIDER: Jeet King MD Performed at [facility] | + + + + + | Narrative | Performed At | + + + | Khurram Isabel | [facility] | | MD Missael 05/20/2018 18:40CORONARY CATH and INTERVENTION REPORT | | | PATIENT NAME/: Bob Will, (1955)MEDICAL RECORD | | | NUMBER: [id number] OF SERVICE: 05/19/2018PRIMARY | | | SLOT SUPERVISOR: Randy Figueroa MD OIL FIELD CASER: | | | Khurram Canas MD PROCEDURES [...] SonoSite and a micro cath a 14 Bolivian was | | | eventually placed in [...] chronic renal failure Thank you for allowing [facility] | | | to be involved in the care of this patient. Please call with any | | | questions . [facility] PRIMARY CARE | | | PROVIDER:Jeet King MD Performed at [facility] | | | [facility] | | |administered to the patient [...] | | | |Thank you for allowing [facility] to be involved in | | |the care of this patient. Please call with any questions ([phone] | | [phone]. | | | | | | | | |[facility] | | | | | | | | | | | | | | |PRIMARY CARE PROVIDER: | | |Jeet King MD | | | | | | | | | | | | | | |Performed at [facility] | | + + + + [...] + + | PROVIDECHRISTA SACRRUTH | [address] | [place] [address] | | | HEART [facility] | | | | | [...] + | BUCK BASHIR | [address] | [place] [address] | | | [facility] | | | | | LABORATORY | [...] + | [facility] | [address] | [place] [address] | | | [facility] | | | | [...] | | MEDICAL | | | | [facility] [address], | | CENTER | | | | [place] [address] | | LABORATORY | | | | [...] + | ALIREZATIADaquan BASHIR | [address] | [place] [address] | | | [facility] | | | | | LABORATORY EDGAR [...] | | | | defined by the [place] | | HEART | | | | [...] IOM | | | | | | ([place] [facility]). | | | | | [...] [facility] | | | | | | [address] | | | | | | [facility] [address] [place], [place] | | | | | | [phone] Daniel | | | | | | L Ph:[phone] | | | | + + + + + + + + | Specimen | + + | Blood specimen | | (specimen) | + + + + + + + | Performing | Address | City/State/Zipcode | Phone Number | | Organization | | | | + + + + + | BUCK BASHIR | [address] [place] [address]. | [place] [address] | | | [facility] | | | | | LABORATORY EDG[place] [...] | | MEDICAL | | | | [facility] [address], | | CENTER | | | | [place] [address] | | LABORATORY | | | | [...] + + | [facility] | [address] | [place] [address] | | | [facility] | | | | [...] [facility] | | | | Performed by [facility] [address] | | SACRED | | | | [address] [place], [place] | | HEART | | | | [address] | | MEDICAL | | | | [...] | + + + + + | ALIREZACHIRSTA BASHIR | [address] | [place] [address] | | | [facility] | | | | | LABORATORY CERNER [...] | | MEDICAL | | | | [facility] [address], | | CENTER | | | | [place] [address] | | LABORATORY | | | | [...] + + | BUCK BASHIR | [address] | [place] [address] | | | [facility] | | | | | LABORATORY CERNER [...] PROVIDE NCE | | | | by [facility] [address], | | SACRED | | | | [place] [address] | | HEART | | | |Performed by [facility] [address], [place] [address] | | MEDICAL | | | | [...] + + | BUCK BASHIR | [address] | [place] [address] | | | [facility] | | | | | LABORATORY EDGAR [...] | | MEDICAL | | | | [facility] [address], | | CENTER | | | | [place] [address] | | LABORATORY | | | | [...] + | [facility] | [address] | [place] [address] | | | [facility] | | | | [...] | | | POC | Performed by [facility] [address] | | SACRED | | | | [address], [place] | | HEART | | | | [address] | | MEDICAL | | | | [...] + | ALIREZACHRISTA BASHIR | [address] | [place] [address] | | | [facility] | | | | | LABORATORY EDGAR [...] | | | POC | Performed by [facility] [address] | | SACRED | | | | [address] [place] | | HEART | | | | [address] | | MEDICAL | | | | [...] + + | BUCK BASHIR | [address] | [place] [address] | | | [facility] | | | | | LABORATORY CERNER [...] | | | POC | Performed by [facility] [address] | | [address] | | | | [address], [place] | | HEART | | | | [address] | | MEDICAL | | | | [...] + + | ALIREZATIADaquan BASHIR | [address] | [place] [address] | | | [facility] | | | | | LABORATORY CERNER [...] | | MEDICAL | | | | [facility] [address], | | CENTER | | | | [place] [address] | | LABORATORY | | | | [...] + | BUCK BASHIR | [address] | [place] [address] | | | [facility] | | | | | LABORATORY EDGAR [...] + + | Coronary artery disease involving [place] coronary artery of [place] heart without | | angina pectoris | + + | Dyspnea on exertion Other dyspnea and respiratory abnormality | + + | Angina of effort (HCC) Other and unspecified angina pectoris | + + | CALL CENTER RECRUITER-D (AICD) [employer] 10/16/17 EULOGIO Darby | + + | Family history of sudden Family history of other condition | + + | Atherosclerosis of [place] coronary artery of [place] heart with stable angina pectoris | | [...] | | | | | dose on [facility] 05/13/18 at 2030 | | AM [...] | | | DAILY, First dose on [facility] 05/13/18 | | AM PDT | [...] | | | | | dose on [facility] 05/13/18 at 2115 | | | [...] AM PDT | | | | | [facility] 05/14/18 at 0730, Do not cut [...] | | | | First dose on [facility] 05/13/18 at 2100, | | | [...]
--- OUTSIDE RECORDS SUMMARY | ~2020-03-04 | XMS | Encounter Summary ---
Demographics + + + | Address | [address] | | | [place] [address] | + + + | Home Phone [...] [place], [place] | | | | | [address] | | + + + + + Care Team Providers + +------+ + | Care Trousseau Consultant Name | Role | Phone | + +------+ + | Chato Matson MD | PCP | | + +------+ + Reason for Visit + +--------+ + | Reason | Onset | Comments | | | Date | | + +--------+ + | Blood Pressure | 08/03/ | | | | 2017 | | + +--------+ + Encounter Details +--------+ + + + + | Date | Type | Department | Care Team | Description | +--------+ + + + + | 08/03/ | Telephone | [facility] | Jenny, | Blood Pressure | | 2017 | | CARDIOLOGY [address] | [address]a [address] | | | | | [place], | [place], | | | | | [place] [address] | [place] [address] | | | | | [phone] | [phone] | | | | | | | [...] Telephone Encounter - Suzanne Cheng RN - 08/06/2018 10:40 AM PSTPatient notified, wi ll send blood pressure log in ..........................................Suzanne Cheng RN on 08/06/18 at 10:42 elephone [facility] - Hansa Alvarado ARNP - 08/06/2018 8:53 AM PSTPlease let the patient know that idea lly we will try increase metoprolol XL a little more, he has been going up by 1/2 tablets at the time. Tell him that he could continue trying to increase it to 75 mg at night and sachi nue the 50 mg in the morning. Do another blood pressure log and send it in. Thanks! Electronically signed by: ADARSH Stevens 08/06/2018 8:57 elephone Franny Benton CMA - 08/03/2018 1:20 PM PSTFormatting of this note might be d ifferent from the original. Next Visit:09/21/18 Blood pressure log received from patient as follows:07/14/18--07/20/18 Medication Change: Increase Metoprolol to 50mg twice daily Date BP AM Pulse AM BP PM Pulse PM 07/14/18 110/71 64 110/70 68 07/15/18 115/75 65 108/70 68 07/16/18 115/75 68 110/70 68 07/17/18 110/70 69 110/75 70 07/18/18 105/76 70 108/70 77 07/19/18 105/77 77 109/68 69 07/20/18 110/78 68 110/78 68 Additional Comments: documented in this encounter Plan [...] [place] | | | | | | [address] | | | | | | | | +--------+ + + + + | 04/16/ | Office | Cardiology | Alin Anderson | | | 2019 | Visit | | MD [address] | | | | | | [address] | | | | | | [place] [address] | | | | | | [phone] | | | | | | | [...] [place] | | | | | | [address] | | | | | | | | +--------+ + + + + documented as of this encounter Visit Diagnoses Not on filedocumented in this encounter"
--- OUTSIDE RECORDS SUMMARY | ~2020-03-04 | XMS | Encounter Summary ---
Demographics + + + | Address | [address] | | | [place] [address] | + + + | Home Phone | | + + + | Preferred Language | Unknown | + + + | Marital Status | | + + + | Buddhist Affiliation | NRP | + + + [...] | | | | | [place] [address] | | + + + + + Care Team Providers + +------+ + | Care Musical Therapist Name | Role | Phone | + +------+ + | Chato Matson MD | PCP | | + +------+ + Encounter Details +--------+ + + + + | Date | Type | Department | Care Team | Description | +--------+ + + + + | 03/31/ | Document-Sc | Health Information | Other, Faculty | | | 2017 | anned | Services [address] | [phone] | | | | | [address] | | | | | | Mailcode: [id number] | | | | | | [facility] | | | | | | [place], [place] | | | | | | [address] | | | | | | [phone] | | | +--------+ + + + [...]
--- OUTSIDE RECORDS SUMMARY | ~2020-03-04 | XMS | Encounter Summary ---
Demographics + + + | Address | [address] | | | [place] [address] | + + + | Home Phone [...] [place], [place] | | | | | [address] | | + + + + + Care Team Providers + +------+ + | Care Cigar Packer Name | Role | Phone | [...] | | involving | [address] | [place] | | | | | [place] | [place] | [place] | | | | | coronary | [address] | [address] | | | | | artery of | Phone: | Phone: | | | | | [place] heart | [phone] | [phone] | | | | | without | Fax: | Fax: | | | | | angina | [phone] | [phone] | | | | | pectoris | | | +--------+ + + + + + Encounter Details +--------+---------+ + + + | Date | Type | Department | Care Team | Description | +--------+---------+ + + + | 10/28/ | Office | [facility] | Carolina Lindarisa, | Coronary artery | | 2019 | Visit | MED CTR CARDIAC | MD [address] | disease, angina | | | | REH[facility] [address], | presence | | | | [address] [place] | [place] [address] | unspecified, | | | | [place] [address] | [phone] | unspecified vessel | | | | [phone] | | or lesion type, | | | | | | unspecified whether | | | | | | [place] or | | | | | | [...] Notes Maria Esther Fields RN - 10/28/2018 10:00 AM PST [facility] CARDIAC [facility]HAB[facility]ITATION [address] [place] [address] Cardiac Rehab Date: 10/28/2018 Patient Information Patient Name: Bob Will Date of : 1955 Age: 62 y.o. Encounter Diagnoses Code Name Primary? I25.10 Coronary artery disease, angina presence unspecified, unspecified vessel or lesi on type, unspecified whether [place] or transplanted heart Yes Z98.61 Post PTCA [...] by Maria Esther Fields RN at 10/28/2018 1:43 PM PSTdocumented in this encounter Plan of [...] [place] | | | | | | [address] | | | | | | | | +--------+ + + + + | 04/16/ | Office | Cardiology | Alin Anderson | | | 2019 | Visit | | MD Cheryl [address] | | | | | | [address] | | | | | | [place] [address] | | | | | | [phone] | | | | | | | [...] [place] | | | | | | [address] | | | | | | | | +--------+ + + + + documented as of this encounter Visit Diagnoses + + | Diagnosis | + + | Coronary artery disease, angina presence unspecified, unspecified vessel or lesion | | type, unspecified whether [place] or transplanted heart - Primary | + + | Post PTCA Postsurgical percutaneous transluminal coronary angioplasty status | + + documented in this encounter"
--- OUTSIDE RECORDS SUMMARY | ~2020-03-04 | XMS | Encounter Summary ---
Demographics + + + | Address | [address] | | | [place] [address] | + + + | Home Phone [...] + + + | Author | [facility] | + + + | Organization | [facility] | + + + | Address | Unknown | + + + | Phone | Unavailable | + + + Support + + + + + | Name | Relationship | Address | Phone | + + + + + | [place] Will | ECON | [address] | | | | | [place] [address] | | + + + + + Care Team Providers + +------+ + | Care Computer Lab Aide Name | Role | Phone | [...] Pharmacy | | | | | | [address] | | | | | | [address] [place], [place] | | | | | | [address] | | | | | | [phone] | | | +--------+ + + + [...]
--- OUTSIDE RECORDS SUMMARY | ~2020-03-04 | XMS | Encounter Summary ---
Demographics + + + | Address | [address] | | | [place] [address] | + + + | Home Phone [...] [place] | | | | | [address] | | + + + + + Care Team Providers + +------+ + | Care Strategic Debriefing Specialist Name | Role | Phone | + +------+ + | Chato Matson MD | PCP | | + +------+ + Reason for Visit + + + | Reason | Comments | + + + | Follow-up | 4-6 weeks | + + + | Coronary Artery | | | Disease | | + + + | Cardiomyopathy | | + + + | Tachycardia | | + + + Follow Up [...] | | Atherosclero | MD Lauro | [address] [place] [address] | | | | | tic heart | [address] | [address] | | | | | disease of | [address] | [place], | | | | | [place] | [place], | [place] [address] | | | | | coronary | [place] | Phone: | | | | | artery | [address] | [phone] | | | | | without | Phone: | Fax: | | | | | angina | [phone] | [phone] | | | | | pectoris ST | Fax: | | | | | | elevation | [phone] | | | | | | (STEMI) [...] Description | +--------+---------+ + + + | 06/10/ | Office | [facility] | [place], | Abdominal aortic | | 2018 | Visit | CARDIOLOGY [address] | ADARSH Santo [address] | aneurysm (AAA) | | | | [place], | [place], | without rupture | | | | [place] [address] | [place] [address] | (HCC) (Primary Dx); | | | | [phone] | [phone] | Acute anterior wall | | | | | | [place] (HCC); Acute on | | | | [...] | | | | [place] coronary | | | | | | artery of [place] | | | | | | heart without angina | | | | | | pectoris; PAD | | | | | | (peripheral artery | | | | | | disease) (HCC); | | | | | | Mixed | | | | | | hyperlipidemia; | | | | | | Ischemic | | | | | | cardiomyopathy; | | | | | | Hypercholesterolemia | | | | | | ; FIRE CREW WORKER-D (AICD) | | | | | | [employer] 10/16/17 | | | | | | EULOGIO Darby; | | | | | | Atherosclerosis of | | | | | | [place] coronary | | | | | | artery of [place] | | | | | | heart with stable | | | | | | angina pectoris | | | | | | (HCC) [...] + + + | Blood Pressure | 100/60 | 06/10/2018 9:52 AM | | | | | PDT | | + + + + + | Pulse | 64 | 06/10/2018 9:52 AM | | | | | PDT | | + + + + + | Temperature | - | - | | + + + + + | Respiratory Rate | 20 | 06/10/2018 9:52 AM | | | | | PDT | | + + + + + | Oxygen Saturation | - | - | | + + + + + | Inhaled Oxygen | - | - | | | Concentration | | | | + + + + + | Weight | 99.2 kg (218 lb 11.1 | 06/10/2018 9:52 AM | | | | oz) | PDT | | + + + + + | Height | 177.8 cm (5' 10") | 06/10/2018 9:52 AM | | | | | PDT | | + + + + + | Body Mass Index | 31.38 | 06/10/2018 9:52 AM | | | | | PDT | | + + + + + documented in this encounter Patient Instructions Patient Instructions Hansa Alvarado ARNP - 06/10/2018 10:00 AM PDT1. Start Furosemide 20 mg once a day for 3 days 2. Monitoring blood pressure and weight 3. Start taking Entresto twice a day 4. Follow up in 4-6 weeks 10 :46 AM PDT documented in this encounter Progress Notes Hansa Alvarado ARNP - 06/10/2018 10:00 AM PDTFormatting of this note might be differen t from the original. PATIENT NAME: Bob Will : 1955: AGE: 62 y.o. PRIMARY CARE: Young Haque DO OUTPATIENT FOLLOW UP VISIT Date of Service: 06/10/2018 HISTORY OF PRESENT ILLNESS: Bob Will is a 62 y.o. 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 He is being seen today for follow up cardiomyopathy and coronary artery disea se. He was last seen 04/08/2018 at which time stop lisinopril and start Entresto mg 49/51 twice a day to increase the chance to improve left ventricular systolic function. Check blood pre ssure x 2 weeks, check minichem in 1 week. Enroll patient into phase II cardiac rehab angel rendon Recommend a therapeutic lifestyle change including walking 30 minutes a day, choosing hea lthy choices of diet, including DASH diet and weight reduction. Follow-up in three to four w eeks with ADARSH Stevens to adjust medication. Since that time, patient called a couple days later saying that he was having some fluid re tention issues. He was asked to do a couple days of increased diuretic and follow-up with yocasta mehta. He has been having issues with fluid retention. Last month patient had a couple of days where he needed diuretics to get rid of fluid. About 2 weeks later he started having increase in weight gain of 6 pounds and today. And he needed diuretics again. He responds really well to diuretics. Today after interview with patient and his we have determine what has been causing some of the fluid retention. Patient did not realize that certain fo ods were to be high incontinent of sodium. Patient and his are fixing the kitchen's th at they have been eating out a lot more often. He has been having biscuits and sausage grav y a couple times a week for breakfast. We have reviewed label reading in more depth and clifford thily today. I also gave him more printed education about label reading and sodium content on food. He has not had any chest pain, however, he has been having days with increased archie rtness of breath that have correlated with patient having increase in sodium consumption. Darshan reyes has not been lightheaded or dizzy. His blood pressure log from home shows that he has bee n more consistent with his blood pressure and not having much hypotension. He is fluctuatin g between 101/57 to 120/75. Heart rate has remained in the 70's and 80's. His weight has f luctuated between 204 pounds and 214 pounds. For unknown reasons patient only has been taki ng Entresto once a day. He hasn't had any leg swelling. He was going to start going to [facility] rehabilitation but he states today that he was denied by insurance. He has been trying to stay active around the house. He has not felt any shocking from his FIRE CREW WORKER-D device MEDICAL, SURGICAL, AND PERSONAL HISTORY Past Medical, Surgical, Family, and Social History are reviewed in EPIC. CURRENT PROBLEMS Patient Active Problem List Diagnosis Acute anterior wall [place] Coronary artery disease involving [place] coronary artery of [place] heart without angina pectoris Ischemic cardiomyopathy FIRE CREW WORKER-D (AICD) [employer] 10/16/17 [facility] Stecker Implantable defibrillator reprogramming/check H/O atrial flutter [...] 3 0 tablet 5 Cholecalciferol (VITAMIN D-3) 47756 units CAPS Take by mouth Once a week. clopidogrel (PLAVIX) 75 mg tablet Take 1 tablet by mouth Daily. 30 tablet 11 gabapentin (NEURONTIN) 300 mg capsule Take 300 [...] Neurological: Positive for weakness. Negative for dizziness. Lightheaded-no OBJECTIVE: PHYSICAL EXAM BP 100/60 | Pulse 64 | Resp 20 | Ht 1.778 m (5' 10") | Wt 99.2 kg (218 lb 11.1 oz) | B [place] 31.38 kg/m Physical Exam Constitutional: He is oriented [...] muscle usage. No respiratory distress. He has decreased breath sounds. He has no wheezes. [...] Interval:176 ms P Duration:196 ms P Horizontal Siren:-6 deg P Front Siren:72 deg Q Onset:508 ms QRSD Interval:148 ms QT Interval:500 ms QTcB:508 ms QTcF:505 ms QRS Horizontal Siren:217 deg QRS Siren:167 deg I-40 Horizontal Siren:188 deg I-40 Front Siren:148 deg T-40 Horizontal Siren:231 deg T-40 Front Siren:163 deg T Horizontal Siren: deg T Wave Siren:15 deg S-T Horizontal Siren:67 deg S-T Front Siren:-59 deg Severity:- ABNORMAL ECG - INTERP:ATRIAL-SENSED VENTRICULAR-PACED COMPLEXES Electronically signed by: , 05-20-2018 05:48:28 LAB RESULTS reviewed during visit today primarily from [facility]: LIPID Lab Results Component Value Date LDLEX 42 10/10/2017 HDLEX 21 10/10/2017 TRIGEX 131 10/10/2017 CHOLEX 89 10/10/2017 CHEMISTRY Lab Results Component Value Date GLU 102 (H) 05/21/2018 GLUEX 154 (A) 06/07/2018 NA 141 05/21/2018 NAEX 141 06/07/2018 K 4.5 05/21/2018 KEX 3.9 06/07/2018 CL 108 05/21/2018 CLEX 104 06/07/2018 CO2 25 05/21/2018 CO2EX 24 06/07/2018 CALCIUM 8.7 05/21/2018 ALKPHOS 78 05/14/2018 AST 29 05/14/2018 ASTEX 15 04/22/2018 ALT 57 05/14/2018 ALTEX 21 04/22/2018 BILITOT 0.5 05/14/2018 CREA 1.69 (H) 05/21/2018 BUN 24 05/21/2018 EGFR 42 (L) 05/21/2018 EGFREX 47 06/07/2018 CREEX 1.50 (A) 06/07/2018 HEMATOLOGY Lab Results Component Value Date WBC 6.1 05/21/2018 WBCEX 10.2 04/22/2018 HGB 13.0 (L) 05/21/2018 HGBEX 14.0 04/22/2018 HCT 38.0 (L) 05/21/2018 HCTEX 43.0 04/22/2018 PLT 135 (L) 05/21/2018 PLTEX 171 04/22/2018 I reviewed records from [facility] for office visit on 04/09/2018 w hich is summarized in the HPI. [...] requiring IABP, pressor (dop amine, norepinephrine). [facility] and [facility] were on divert. Patient wasn' t transferred to [facility]. B. Echocardiogram 03/17/2017 shows LV ejection fraction is severely de creased, visually estimated left ventricular ejection fraction is 20 - 25%, left ventricular systolic thickening is segment ally abnormal,mildly reduced RV systolic function. Normal RV size, no significant valvular abnormalities seen, compared to the most recent exam dated, 03/15/2017, there is no significant changes C. At [facility], patient had another STEMI code 03/29, with [...] to follow up closely with a local atg architect in [place] . He wias dischargeed with a LifeVest [...] a 90% chery notic lesion to 0% residual stenosis. G. Echocardiogram 06/04/17 shows Mild left [...] y we will transfer the patient to [facility] for consideration of urgent coronary revascularizatio n. [...] ventricular systolic function continued to deteriorate. N. He denies any angina at rest or on exertion. He has been trying to stay phys ically active. He is in class III of the [place] [employer] functional class. Heart failure stage C. 2. Ischemic Cardiomyopathy: Heart failure with reduced [...] in the se regions. C. 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 Ice interrogation today shows one episode of [...] normal IVC with normal respiratory collapse. E. He has not been going to cardiac rehabilitation because of insurance not cov ering. He is trying to exercise at home. We have reviewed the fact that patient has been eat ing a higher than recommended amount of sodium (biscuits and gravy a couple of days a week). His weight has been going up as well. He has felt increase in dyspnea. He is in class III o f the [employer] [employer] functional class. Heart failure stage C. There are decrease d breath sounds, no JVD, no leg swelling. 3. Ventricular tachycardia: A. Electrophysiology Study 10/16/17 shows positive EP study for induc ible ventricular tachycardia. B.In remote interrogation he had 65 episodes of treated VT. He is not on any an tiarrhythmic. He is going to be seen in [place] so we will let EP know about it so they can assist with recommendations about treatment . He may be a candidate for amiodarone. 4. Left atrial appendage thrombus. Not addressed today. A. Noted on MARKY in the [place] during ECMO decannulation. Completedhep jennie gtt bridge 03/29 to therapeutic warfarin. Not on warfarin any more, no evidence of throm bus in last echocardiogram 5. Paroxysmal atrial flutter. Not addressed today. A. Episode was seen while vision was hospitalized a week ago. Viry mutsafa was after his [place] and at the same time patient was having ventricular tachycardia. He was initiated on amiodarone and then discontinued before discharge. The plan is to monitor thro ugh his device and see if this is a problem that needs to be addressed. Patient is not on anticoagulation he was left that way from [facility]. Patient has had several GI bleeds and [...] III chronic kidney disease A. eGFR is 46 06/2018 PLAN: 1. We have reviewed label reading in more depth and lengthily today. I also gave him more printed education about label reading and sodium content on food 2. He has been advised that his Entresto needs to be twice a day so he will start taking 4 9/51 mg twice a day 3. Check BMP in one week 3. check blood pressure and pulse twice daily for two weeks and return the log to our offic e. He also is to check weight daily 4. He will be seeing the advanced heart failure team at [facility] next week. We will contact EP to see if he can see patient for increasing episodes of ventricular tach ycardia that had been terminated with ATP. In remote interrogation he had 65 episodes of saúl ated VT. He is not on any antiarrhythmic at the moment. He is going to be seen in [facility] o we will let EP know about it so they can assist with recommendations about treatment . He may be a candidate for amiodarone. 5. He will follow up in 2-4 weeks, or sooner with concerns. Portions of this chart may have been created with [employer] voice recognition software. Occasi onal wrong-word or [...] | | | | | [facility] | | | | | | [address] [place] | | | | | | [id number] | | | | | | | | +--------+ + + + + | 04/16/ | Office | Cardiology | Monica Alin | | | 2019 | Visit | | MD Cheryl Arreguin | | | | | | [address] | | | | | | [place] [address] | | | | | | [phone] | | | | | | | [...] [place] | | | | | | [address] | | | | | | | [...] | Coronary artery disease involving [place] coronary artery of [place] heart without | | angina pectoris | + + | PAD (peripheral artery disease) (HCC) Unspecified disorders of arteries and | | arterioles | + + | Mixed hyperlipidemia | + + | Ischemic cardiomyopathy Other specified forms of chronic ischemic heart disease | + + | Hypercholesterolemia Pure hypercholesterolemia | + + | FIRE CREW WORKER-D (GABBI) [employer] 10/16/17 EULOGIO Darby | + + | Atherosclerosis of [place] coronary artery of [place] heart with stable angina pectoris | | (HCC) | + + documented in this encounter
--- OUTSIDE RECORDS SUMMARY | ~2020-03-04 | XMS | Encounter Summary ---
Demographics + + + | Address | [address] | | | [place] [address] | + + + | Home Phone [...] + + + + + | [place] [address] | ECON | [place], [place] | | | | | [address] | | + + + + + Care Team Providers + +------+ + | Care Skatesman Name | Role | Phone | + +------+ + | Chato Matson MD | PCP | | + +------+ + Reason for Visit + +--------+ + | Reason | Onset | Comments | | | Date | | + +--------+ + | Medication Refill | 06/21/ | | | | 2017 | | + +--------+ + Encounter Details +--------+ + + + + | Date | Type | Department | Care Team | Description | +--------+ + + + + | 06/21/ | Telephone | [facility] | [place], | Medication Refill | | 2017 | | CARDIOLOGY [address] | ADARSH Santo [address] | | | | | [place], | [place], | | | | | [place] [address] | [place] [address] | | | | | [phone] | [phone] | | | | | | | [...] Telephone Encounter - Kamari Armenta RN - 06/21/2018 5:22 PM PDTRefill done after do uble checking dose. P DTTelephone Encounter - Hansa Alvarado ARNP - 06/21/2018 4:03 PM PDTYes. That's fine y ou can refill it. Just double check the dose for me please Electronically signed by: ADARSH Stevens 06/21/2018 16:[address] - Kamari Armenta RN - 06/21/2018 1:09 PM PDTReceived a fax from pharmacy that sta janeth: Patient would like Dr Alvarado to send a nex Rx for this (metoprolol succinate 25mg 1 tab morning 2 tabs in evening). Dr Hester is not registered with [facility] and his insurance wi ll not pay for it. Would you like us to send a prescription in for this? Unsure if you want to fill this since it is a new prescription from another provider? documented in this encounter Plan of Treatment [...] [place] | | | | | | [address] | | | | | | | | +--------+ + + + + | 04/16/ | Office | Cardiology | Alin Anderson | | | 2019 | Visit | | MD Cheryl Arreguin | | | | | | [address] | | | | | | [place] [address] | | | | | | [phone] | | | | | | | [...] [place] | | | | | | [address] | | | | | | | | +--------+ + + + + documented as of this encounter Visit Diagnoses Not on filedocumented in this encounter"
--- OUTSIDE RECORDS SUMMARY | ~2020-03-04 | XMS | Encounter Summary ---
Demographics + + + | Address | [address] | | | [place] [address] | + + + | Home Phone [...] [place] | | | | | [address] | | + + + + + Care Team Providers + +------+ + | Care Press Setter Name | Role | Phone | [...] | n | y Numbness | [address] | | | | | and tingling | [address] | [place] | | | | | of both | [place], | [address] Phone: | | | | | legs | [place] [address] | [phone] | | | | | Weakness | Phone: | Fax: | | | | | Procedures | [phone] | [phone] | | | | | [place] MOTOR | Fax: | | | | | | &/SENS 3-4 | [phone] | | | | | | NRV CNDJ | | | | | | | PRECONF | | | | | | | ELTRODE [place]B | | | | | | | [place] MOTOR | | | | | | | &/SENS 5-6 | | | | | | | NRV CNDJ | | | | | | | PRECONF | | | | | | | ELTRODE LIMB | | | | | | | IA EMG, | | | | | | | NEEDLE, TWO | | | | | | | [place] | | | | | | [...] | 02/24/ | Procedure | [facility] [place] | Prosper Esteves | Left leg weakness; | | 2017 | visit | PHYSIATRY [address] | T[address] | Paresthesias/numbnes | | | | [address] | [address] [place] | s | | | | [place] | [address] | | | | | [address] | | | | | | [phone] | | | +--------+ + + + [...] + | Blood Pressure | 116/74 | 02/24/2018 9:08 AM | | | | | PDT | | + + + + + | Pulse | 74 | 02/24/2018 9:08 AM | | | | | PDT [...] Weight | 96.2 kg (212 lb) | 02/24/2018 9:08 AM | | | | | PDT | | + + + + + | Height | 175.3 cm (5' 9") | 02/24/2018 9:08 AM | | | | | PDT | | + + + + + | Body Mass Index | 31.31 | 02/24/2018 9:08 AM | | | | | PDT | | + + + + + documented in this encounter Progress Notes Prosper Esteves MD - 02/24/2018 9:00 AM PDT [facility] Musculoskeletal, Sports and Spine, Physiatry [address] [address] Test Date: 02/24/2018 Patient Name: Bob Will : 1955 Physician: Prosper Esteves MD MR #: [id number] Sex: Male Referring Physician: Chato Matson MD [...] Amp Site1 Site2 Delta-P (ms) Dist (cm) Rhoan (m/s) Norm Rohan (m/s) Left Sup Peron [...] hesitate to call. Prosper Esteves MD Fellow, [employer]. documented in this encounter Plan of Treatment [...] [place] | | | | | | [address] | | | | | | | | +--------+ + + + + | 04/16/ | Office | Cardiology | Alin Anderson | | | 2019 | Visit | | MD Cheryl Arreguin | | | | | | [address] | | | | | | [place] [address] | | | | | | [phone] | | | | | | | [...] [place] | | | | | | [address] | | | | | | | | +--------+ + + + + documented as of this encounter Visit Diagnoses + + | Diagnosis | + + | Left leg weakness Other musculoskeletal symptoms referable to limbs | + + | Paresthesias/numbness Disturbance of skin sensation | + + documented in this encounter
--- OUTSIDE RECORDS SUMMARY | ~2020-03-04 | XMS | Encounter Summary ---
Demographics + + + | Address | [address] | | | [place] [address] | + + + | Home Phone [...] [place], [place] | | | | | [address] | | + + + + + Care Team Providers + +------+ + | Care Network Coordinator Name | Role | Phone | [...] | | PAD | [place], | [address] [place] | | | | | (peripheral | Hansa, RAW STOCK MACHINE FEEDER | [place], | | | | | artery | [address] | [place] [address] | | | | | disease) | [place] | Phone: | | | | | (HCC) | [place], | [phone] | | | | | Procedures | [place] | Fax: | | | | | CT Angiogram | [address] | [phone] | | | | | Lower | Phone: | | | | | | Extremity | [phone] | | | | | | Left w Con | Fax: | | | | | | | [phone] | | +--------+--------+ + + + + [...] | | | | | PAD | [place], | [address] [place] | | | | | (peripheral | Hansa, RAW STOCK MACHINE FEEDER | [place], | | | | | artery | [address] | [place] [address] | | | | | disease) | [place] | Phone: | | | | | (HCC) | [place], | [phone] | | | | | Procedures | [place] | Fax: | | | | | CT Angiogram | [address] | [phone] | | | | | Lower | Phone: | | | | | | Extremity | [phone] | | | | | | Left w Con | Fax: | | | | | | | [phone] | | +--------+--------+ + + + + Encounter Details +--------+ + + + + | Date | Type | Department | Care Team | Description | +--------+ + + + + | 01/18/ | Hospital | [facility] | [place], | PAD (peripheral | | 2018 | Encounter | [facility] [address] | JERICHO SantoP [address] | artery disease) | | | | [place], | [place], | (HCC) | | | | [place] [address] | [place] [address] | | | | | [phone] | [phone] | | | | | | | [...] 0 | | | | (VITAMIN D-3) [address] | mouth Once a week. | | [...] [place] | | | | | | [address] | | | | | | | | +--------+ + + + + | 04/16/ | Office | Cardiology | Alin Anderson | | | 2019 | Visit | | MD Cheryl Arreguin | | | | | | [address] | | | | | | [place] [address] | | | | | | [phone] | | | | | | | [...] [place] | | | | | | [address] | | | | | | | [...] | | CONTRAST | | PDT | ([facility]) | results section. | + +--------+ + [...]
--- OUTSIDE RECORDS SUMMARY | ~2020-03-04 | XMS | Encounter Summary ---
Demographics + + + | Address | [address] | | | [place] [address] | + + + | Home Phone [...] [place] | | | | | [address] | | + + + + + Care Team Providers + +------+ + | Care Fiscal Services Manager Name | Role | Phone [...] + | 09/05/ | Implant | [facility] | Rahulmendycathy Zoëleo, | Implantable | | 2019 | Monitor | CARDIOLOGY [address] | defibrillator | | | | [place], | [place], | reprogramming/check | | | | [place] [address] | [place] [address] | (Primary Dx); CREDIT PRODUCT ANALYST-D | | | | [phone] | [phone] | (AICD) Medtronic | | | | | | 10/16/17 ORMENDY Darby; | | | | | | Ischemic | | | | | | cardiomyopathy; | | | | | | Chronic systolic CHF | | | | | | (congestive heart | | | | | | failure) (HCC); | | | | | | Ventricular | | | | | | tachycardia (HCC) | +--------+ + + + + [...] encounter Procedure Notes Randy Figueroa MD - 09/05/2019 11:59 PM PSTAssociated Order(s): DEVICE INTERROGATION- R EMOTEProcedure(s): DEVICE INTERROGATION- REMOTEPre-Procedure Diagnose(s): Implantable defibr illator reprogramming/check; Biventricular ICD (implantable cardioverter-defibrillator) in p lace; Ischemic cardiomyopathy; Chronic systolic CHF (congestive heart failure) (HCC); Ventri cular tachycardia (HCC)Date of Remote Interrogation: 07/19/19 Refer to Paceart documentation and remote PDF scanned into [employer] for remote interrogation re sults. Data collected by Norah Low RN Presenting rhythm: atrial sensed biventricular paced with rate at 60 beats. 0 mode switch episodes accounting for 0% of the time. No episodes. 0.3 PVC singles/hour <0.1 PVC runs/hour Histogram good Battery longevity 8.3 years. Apparent normal and stable device function. Device interrogation in office 07/25/19 Patient notified. do cumented in this encounter Plan of Treatment +--------+ [...] [place] | | | | | | [address] | | | | | | | | +--------+ + + + + | 04/16/ | Office | Cardiology | Alin Anderson | | | 2019 | Visit | | MD Cheryl Arreguin | | | | | | [address] | | | | | | [place] [address] | | | | | | [phone] | | | | | | | [...] [place] | | | | | | [address] | | | | | | | | +--------+ + + + + documented as of this encounter Procedures + +--------+ + + + | Procedure Name | Priori | Date/Time | Associated Diagnosis | Comments | | | ty | | | | + +--------+ + + + | DEVICE | Routin | 08/15/2019 | Implantable | Results for this | | INTERROGATION- | e | 12:00 AM | defibrillator | procedure are in the | | REMOTE | | PST | reprogramming/check | results section. | | | | | CREDIT PRODUCT ANALYST-D (AICD) | | | | | | Medtronic 10/16/17 | | | | | | EULOGIO Darby | | | | | | Ischemic | | | | | | cardiomyopathy | | | | | | Chronic systolic CHF | | | | | | (congestive heart | | | | | | failure) (HCC) | | | | | | Ventricular | | | | | | tachycardia (HCC) | | + +--------+ + + + documented in this encounter Results Device Interrogation - Remote (08/15/2019 12:00 AM PST) + + + | Narrative | Performed At | + + + | Randy | DONNA | | MD [place] 08/15/2019 12:49 PMDate of Remote Interrogation: | | | 07/19/19 Refer to Paceart documentation and remote PDF scanned into | | | [facility] for remote interrogation results. Data collected by Norah | | | ALFONSO Low Presenting rhythm: atrial sensed biventricular paced with | | | rate at 60 beats. 0 mode switch episodes accounting for 0% of the | | | time.No episodes. 0.3 PVC singles/hour <0.1 PVC | | | runs/hour Histogram good Battery longevity | | | 8.3 years.Apparent normal and stable device function.Device | | | interrogation in office 07/25/19Patient notified. | | |0 mode switch episodes accounting for 0% of the time. | | |No episodes. | | |0.3 PVC singles/hour | | |<0.1 PVC runs/hour | | |Histogram good Battery longevity 8.3 years. | | |Apparent normal and stable device function. | | |Device interrogation in office 07/25/19 | | |Patient notified. | | + + + + + | Procedure Note | + + | Randy Figueroa MD - 09/05/2019 11:59 PM PST Date of Remote Interrogation: | | 07/19/19Refer to uTest documentation and remote PDF scanned into [employer] for remote | | interrogation results. Data collected by Norah Low RN Presenting rhythm: atrial | | sensed biventricular paced with rate at 60 beats. 0 mode switch episodes accounting for | | 0% of the time.No episodes. 0.3 PVC singles/hour <0.1 PVC runs/hour | | Histogram good Battery longevity 8.3 years.Apparent normal and stable device | | function.Device interrogation in office 07/25/19Patient notified. | |No episodes. | |0.3 PVC singles/hour | |<0.1 PVC runs/hour | |Histogram good Battery longevity 8.3 years. | |Apparent normal and stable device function. | |Device interrogation in office 07/25/19 | |Patient notified. | + + + +---------+ + + [...] implantable cardiac defibrillator | + + | CREDIT PRODUCT ANALYST-D (GABBI) Imani 10/16/17 EULOGIO Darby | + + | Ischemic cardiomyopathy Other specified forms of chronic ischemic heart disease | + + | Chronic systolic CHF (congestive heart failure) (HCC) | + + | Ventricular tachycardia (HCC) Paroxysmal ventricular tachycardia | + + documented in this encounter"
--- OUTSIDE RECORDS SUMMARY | ~2020-03-04 | XMS | Encounter Summary ---
Demographics + + + | Address | [address] | | | [place] [address] | + + + | Home Phone [...] [place] | | | | | [address] | | + + + + + Care Team Providers + +------+ + | Care Adjunct Psychology Faculty Member Name | Role | Phone | + +------+ + | Amy Olivares MD | PCP | | + +------+ + Encounter Details +--------+ + + + + | Date | Type | Department | Care Team | Description | +--------+ + + + + | 11/03/ | Orders Only | [facility] | Amy Olivares V, | | | 2018 | | CONVERSION [address] | MD [address] | | | | | [address] | [address] [place] | | | | | [facility] [place] | [address] | | | | | [address] | | | | | | [phone] | | | +--------+ + + + [...] [place] | | | | | | [address] | | | | | | | | +--------+ + + + + | 04/16/ | Office | Cardiology | Alin Anderson | | | 2019 | Visit | | MD Cheryl Arreguin | | | | | | [address] | | | | | | [place] [address] | | | | | | [phone] | | | | | | | [...] [place] | | | | | | [address] | | | | | | | | +--------+ + + + + documented as of this encounter Procedures + +--------+ + + + | Procedure Name | Priori | Date/Time | Associated Diagnosis | Comments | | | ty | | | | + +--------+ + + + | ECHO INTERPRETATION | Routin | 11/03/2018 | | Results for this | | OF OUTSIDE FILMS | e | 3:41 PM | | procedure are in the | | | | PST | | results section. | + +--------+ + + + documented in this encounter Results ECHO Interpretation of Outside Films (11/03/2018 3:41 PM PST) + + | Specimen | + + | | + + + + + | Impressions | Performed At | + + + | 1. This was a technically difficult study with suboptimal views. 2. | | | The left ventricle is mildly dilated severely impaired systolic | | | function EF 25-30%. Akinetic anterior, [...] : 1955 | | | Performing Physician: Rocio Pearl | | | | | | INDICATIONS [...] regurgitation. Aortic Valve: There is no evidence | | | of aortic stenosis. Mitral Valve: Normal appearing mitral valve. | | | Mitral Valve: There is trace mitral regurgitation. Tricuspid Valve: | | | The tricuspid valve appears structurally normal. Tricuspid Valve: | | | Mild tricuspid regurgitation present. Tricuspid Valve: There is no | | | evidence of pulmonary hypertension. Tricuspid Valve: The right | | | ventricular systolic pressure (pulmonary artery systolic pressure), as | | | measured by Doppler, is 26.47mmHg. Pulmonic Valve: The pulmonic | | | valve was not well visualized. Pericardium: There is no pericardial | | | effusion. Pericardium: No pleural effusion seen. IVC/Hepatic Veins: | | | The inferior vena cava is normal in size and collapses > 50 % with | | | sniff, indicating normal central venous pressures. Aorta: The aortic | | | root, ascending aorta and aortic arch are normal in size. General | | | comments: Compared with the findings of the prior study, there has | | | been no significant change. MEASUREMENTS Ao sinus: | | | 3.[address] junct: 2.60 cm IVC: 2.12 cm LA Diam: | | | 4.77 cm EDV(Teich): 174.60 ml IVSd: 1.03 cm LVIDd: 5.92 cm | | | LVPWd: 1.01 cm LVOT Area: 3.17 cm2 LVOT Diam: 2.01 cm | | | %FS: 15.56 % EF(Teich): 32.30 % ESV(Teich): 118.19 ml | | | LVIDs: 4.99 cm SV(Teich): 56.41 ml RV Minor: 3.75 cm LVEF | | | MOD A2C: 37.53 % SV MOD A2C: 79.07 ml LVEF MOD A4C: 25.60 % | | | SV MOD A4C: 69.69 ml EF Biplane: 31.92 % LVEDV MOD BP: | | | 239.15 ml LVESV MOD BP: 162.79 ml LVEDV MOD A2C: 210.68 ml | | | LVLd A2C: 10.26 cm LVEDV MOD A4C: 272.18 ml LVLd A4C: 10.01 | | | cm LVESV MOD A2C: 131.60 ml LVLs A2C: 9.50 cm LVESV MOD A4C: | | | 202.48 ml LVLs A4C: 9.48 cm LAESV(A-L): 90.92 ml LAESV | | | Index (A-L): 42.88 ml/m2 LAAs A2C: 24.92 cm2 LAESV A-L A2C: | | | 95.08 ml LALs A2C: 5.54 cm LAAs A4C: 19.37 cm2 LAESV A-L | | | A4C: 70.66 ml LALs A4C: 4.50 cm RAAs: 18.79 cm2 RAESV A-L: | | | 67.38 ml RAESV MOD: 63.17 ml RALs: 4.44 cm TAPSE: 2.12 | | | cm AV maxP.82 mmHg AV meanP.56 mmHg AV Vmax: 1.30 | | | m/s AV Vmean: 0.88 m/s AV VTI: 25.33 cm MABEL Vmax: 2.55 | | | cm2 MABEL (VTI): 2.49 cm2 AVAI (Vmax): 0.00 cm2/m2 AVAI (VTI): | | | 0.00 cm2/m2 LVOT maxP.40 mmHg LVOT meanP.91 mmHg | | | LVSI Dopp: 29.85 ml/m2 LVSV Dopp: 63.29 ml LVOT Vmax: 1.04 | | | m/s LVOT Vmean: 0.64 m/s LVOT VTI: 19.92 cm MV A Rohan: 0.86 | | | m/s MV Dec Lassen: 3.26 m/s2 MV DecT: 218.32 ms MV E Rohan: | | | 0.71 m/s MV E/A Ratio: 0.82 MV PHT: 63.31 ms MVA By PHT: | | | 3.47 cm2 Septal e': 0.04 m/s Septal E/e': 15.51 Lateral e': | | | 0.06 m/s Lateral E/e': 10.91 RAP: 5 mmHg RVSP: 26.47 | | | mmHg TR maxP.47 mmHg TR Vmax: 2.31 m/s Double Ending Machine Operator: | | | DBS Authenticated by: Rocio Dae Report Date/Time: 11-04-2018 | | | 19:16:25 | | + + + + + | Procedure Note | + + | Clayton Cortes - 04/28/2019 1:46 PM PDT Patient Name: Belkys MCKEON | | of : 1955 Performing Physician: Rocio | | Dae INDICATIONS------ | | -----CHF CONCLUSIONS 1. This was a technically difficult study with suboptimal | | views.2. The left ventricle is mildly dilated severely impaired systolic function EF | | 25-30%. Akinetic anterior, anteroseptal, inferosepal, inferior and apical segments.3. | | Mild tricuspid regurgitation with moderate left atrial enlargement.4. There is no | | pericardial effusion.5. Compared with the findings of the prior study, there has been no | | significant change. FINDINGS--------ECG rhythm: Sinus rhythm.Study: A 2-dimensional | | transthoracic echocardiogram with m-mode, spectral and color flow Doppler was | | perfomed.Study: This was a technically difficult study with suboptimal views.Left | | Ventricle: Overall left ventricular systolic function is severely impaired with, an EF | | between 25 - 30 %.Left Ventricle: The left ventricle is mildly dilated.Left Ventricle: | | Left ventricular wall thickness is normal.Left Ventricle: The diastolic filling pattern | | indicates impaired relaxation consistent with mild dysfunction (Grade I).Right | | Ventricle: The right ventricle is normal in size.Right Ventricle: The right ventricular | | systolic function is mildly impaired.Right Ventricle: Pacer/ICD wire seen.Left Atrium: | | The left atrium is moderately enlarged.Right Atrium: The right atrium is mildly | | enlarged.Right Atrium: Pacemaker wire seen in the right atrial cavity.Aortic Valve: The | | aortic valve was not well visualized.Aortic Valve: There is no evidence of aortic | | regurgitation.Aortic Valve: There is no evidence of aortic stenosis.Mitral Valve: Normal | | appearing mitral valve.Mitral Valve: There is trace mitral regurgitation.Tricuspid | | Valve: The tricuspid valve appears structurally normal.Tricuspid Valve: Mild tricuspid | | regurgitation present.Tricuspid Valve: There is no evidence of pulmonary | | hypertension.Tricuspid Valve: The right ventricular systolic pressure (pulmonary artery | | systolic pressure), as measured by Doppler, is 26.47mmHg.Pulmonic Valve: The pulmonic | | valve was not well visualized.Pericardium: There is no pericardial effusion.Pericardium: | | No pleural effusion seen.IVC/Hepatic Veins: The inferior vena cava is normal in size | | and collapses > 50 % with sniff, indicating normal central venous pressures.Aorta: The | | aortic root, ascending aorta and aortic arch are normal in size.General comments: | | Compared with the findings of the prior study, there has been no significant change. | | MEASUREMENTS Ao sinus: 3.[address] junct: 2.60 cmIVC: 2.12 cmLA Diam: | | 4.77 cmEDV(Teich): 174.60 mlIVSd: 1.03 cmLVIDd: 5.92 cmLVPWd: 1.01 cmLVOT | | Area: 3.17 [id number] Diam: 2.01 cm%FS: 15.56 %EF(Teich): 32.30 %ESV(Teich): | | 118.19 mlLVIDs: 4.99 cmSV(Teich): 56.41 mlRV Minor: 3.75 cmLVEF MOD A2C: 37.53 | | %SV MOD A2C: 79.07 mlLVEF MOD A4C: 25.60 %SV MOD A4C: 69.69 mlEF Biplane: 31.92 | | %LVEDV MOD BP: 239.15 mlLVESV MOD BP: 162.79 mlLVEDV MOD A2C: 210.68 mlLVLd A2C: | | 10.26 cmLVEDV MOD A4C: 272.18 mlLVLd A4C: 10.01 cmLVESV MOD A2C: 131.60 mlLVLs | | A2C: 9.50 cmLVESV MOD A4C: 202.48 mlLVLs A4C: 9.48 cmLAESV(A-L): 90.92 mlLAESV | | Index (A-L): 42.88 ml/m2LAAs A2C: 24.92 [id number] A-L A2C: 95.08 mlLALs A2C: 5.54 | | cmLAAs A4C: 19.37 [id number] A-L A4C: 70.66 mlLALs A4C: 4.50 cmRAAs: 18.79 | | [id number] A-L: 67.38 mlRAESV MOD: 63.17 mlRALs: 4.44 cmTAPSE: 2.12 cmAV maxPG: | | 6.82 mmHgAV meanP.56 mmHgAV Vmax: 1.30 m/Emil Vmean: 0.88 m/Emil VTI: 25.33 | | cmAVA Vmax: 2.55 cm2AVA (VTI): 2.49 es0BGAT (Vmax): 0.00 cm2/m2AVAI (VTI): 0.00 | | cm2/m2LVOT maxP.40 mmHgLVOT meanP.91 mmHgLVSI Dopp: 29.85 ml/m2LVSV Dopp: | | 63.29 mlLVOT Vmax: 1.04 m/sLVOT Vmean: 0.64 m/sLVOT VTI: 19.92 cmMV A Rohan: | | 0.86 m/sMV Dec Lassen: 3.26 m/s2MV DecT: 218.32 msMV E Rohan: 0.71 m/sMV E/A Ratio: | | 0.82MV PHT: 63.31 msMVA By PHT: 3.47 [id number] e': 0.04 m/sSeptal E/e': | | 15.51Lateral e': 0.06 m/sLateral E/e': 10.91RAP: 5 mmHgRVSP: 26.47 mmHgTR maxPG: | | 21.47 mmHgTR Vmax: 2.31 m/s Double Ending Machine Operator: DBSAuthenticated by: Rocio | | [facility] Date/Time: 11-04-2018 19:16:25 IMPRESSION: 1. This was a technically | | difficult study with suboptimal views.2. The left ventricle is mildly dilated severely | | impaired systolic function EF 25-30%. Akinetic anterior, anteroseptal, inferosepal, | | inferior and apical segments.3. Mild tricuspid regurgitation with moderate left atrial | | enlargement.4. There is no pericardial effusion.5. Compared with the findings of the | | prior study, there has been no significant [...] A Rohan: 0.86 m/s | |MV Dec Lassen: 3.26 m/s2 | |MV DecT: 218.32 ms [...] |TR Vmax: 2.31 m/s | | | |Double Ending Machine Operator: DBS | |Authenticated by: Rocio Pearl [...] been no significant change. | + + documented in this encounter Visit Diagnoses Not on filedocumented in this encounter"
--- OUTSIDE RECORDS SUMMARY | ~2020-03-04 | XMS | Encounter Summary ---
Demographics + + + | Address | [address] | | | [place] [address] | + + + | Home Phone [...] [place], [place] | | | | | [address] | | + + + + + Care Team Providers + +------+ + | Care Press Pipe Inspector Name | Role | Phone | + +------+ + PCP | Unavailable | + +------+ + Reason for Visit +--------+--------+ + | Reason | Onset | Comments | | | Date | | +--------+--------+ + | Other | 10/27/ | medication issue | | | 2018 | | +--------+--------+ + Encounter Details +--------+ + + + + | Date | Type | Department | Care Team | Description | +--------+ + + + + | 10/27/ | Telephone | [facility] [place] | Jenny, | Other (medication | | 2018 | | CARDIOLOGY [address] | ADARSH Santo [address] | issue) | | | | [place], | [place], | | | | | [place] [address] | [place] [address] | | | | | [phone] | [phone] | | | | | | | [...] Telephone Encounter - Lilian Machado RN - 10/27/2018 3:49 PM PSTRecords received and re viewed by ADARSH Stevens. She advised the followin. Continue to hold Spironolactone and any potassium supplement. 2. Restart Entresto 49/51mg - twice daily 3. Continue Lasix (furosemide) at 20mg one time daily 4. Check BMP in one week 5. Check blood pressure and pulse twice daily for two weeks Ashok and Venice are notified and read back instructions accurately. Prescriptions called to [facility] [place]. Lab order faxed to [facility] in [place]. Copy of this note faxed to Dr Matson/Marilin at [phone] for their information ....... ....................................Lilian Machado RN on 10/27/18 at 16:01 elephone Encounter - Lilian Machado RN - 10/27/2018 3:03 PM PSTPer conversation with Hansa, we need to hav e documentation prior to sending any scripts. I called the [facility], spoke with Jermaine. Logan he states that his potassium was too high so they stopped those two medications. She will f ax records soon. ...........................................Lilian Machado RN on 10/27/18 at 15:06 elephone Encounter - Lilian Machado RN - 10/27/2018 1:22 PM PSTRobert called and left a message on my voic email stating that he had an issue with his medications. I called back and spoke with Venice. She states that the [facility] had him stop his entresto and spironolactone due to his kidney function and had him increase his furosemide to 20mg tw ice daily. He is almost out of his furosemide at this time and they have not been able to g et a hold of anyone at the [facility] for a refill. They are wondering if Hansa would be willing to refill his furosemide at a local pharmacy to get him by. .............................. .............Lilian Machado RN on 10/27/18 at 13:29 documented in this encounter Plan of Treatment [...] | | | | [address] [place] [place] | | | | | | [address] | | | | | | | | +--------+ + + + + | 04/16/ | Office | Cardiology | Alin Anderson | | 2019 | Visit | | MD [address] | | | | | | [address] | | | | | | [place] [address] | | | | | | [phone] | | | | | | | | +--------+ + + + + | 04/16/ | Procedure | Cardiology | | | | 2019 | visit | | | | +--------+ + + + + | 04/25/ | Office | Cardiology | Rocio Pearl, | | | 2019 | Visit | | MD Cheryl [address] | | | | | | [place] | | | | | | [address] | | | | | | | | +--------+ + + + + + +------+--------+ + + | Name | Type | Priori | Associated Diagnoses | Order Schedule | | | | ty | | | + +------+--------+ + + | Basic Metabolic | Lab | Routin | Congestive heart | Expected: | | Panel | | e | failure, unspecified | 11/03/2018, Expires: | | | | | HF chronicity, | 10/27/2019 | | | | | unspecified heart | | | | | | failure type (HCC) | | + +------+--------+ + + documented as of this encounter Visit Diagnoses + + | Diagnosis | + + | Congestive heart failure, unspecified HF chronicity, unspecified heart failure type | | (HCC) - Primary | + + documented in this encounter"
--- OUTSIDE RECORDS SUMMARY | ~2020-03-04 | XMS | Encounter Summary ---
Demographics + + + | Address | [address] | | | [place] [address] | + + + | Home Phone [...] [place], [place] | | | | | [address] | | + + + + + Care Team Providers + +------+ + | Care Casting Trucker Name | Role | Phone | [...] | 07/01/ | Telephone | [facility] [place] | Jenny, | Blood Pressure | | 2017 | | CARDIOLOGY [address] | [employer] [address] | | | | | [place], | [place], | | | | | [place] [address] | [place] [address] | | | | | [phone] | [phone] | | | | | | | [...] [place] | | | | | | [id number] | | | | | | | | +--------+ + + + + | 04/16/ | Office | Cardiology | Alin Anderson | | | 2019 | Visit | | MD [address] | | | | | | [address] | | | | | | [place] [address] | | | | | | [phone] | | | | | | | [...] [place] | | | | | | [address] | | | | | | | | +--------+ + + + + documented as of this encounter Visit Diagnoses Not on filedocumented in this encounter"
--- OUTSIDE RECORDS SUMMARY | ~2020-03-04 | XMS | Encounter Summary ---
Demographics + + + | Address | [address] | | | [place] [address] | + + + | Home Phone | | + + + | Preferred Language | Unknown | + + + | Marital Status | | + + + | Zoroastrian Affiliation | NRP | + + + | Race | White | + + + | Ethnic Group | Not or | + + + Author + + + | Author | [facility] | + + + | Organization | [facility] | + + + | Address | Unknown | + + + | Phone | Unavailable | + + + Support + + + + + | Name | Relationship | Address | Phone | + + + + + | [place] Will | ECON | [address] | | | | | [place] [address] | | + + + + + Care Team Providers + +------+ + | Care Coding Machine Operator Name | Role | Phone [...] | 2017 | Event | [facility] [place] | Marcela Wiggins, | | | | | [facility] | [address] | | | | | Hospital Admitting | [address] | | | | | Desk Located on the | [place], [place] | | | | | 9 floor | [address] | | | | | [place], [place] | [phone] | | | | | [address] | | | +--------+ + + + [...] | [place] to | Patient transported to [facility] ICU with Art Line, 5 Lead EKG, [...] 12:01 | | | | | Starting [facility] 03/19/17 at 1201, | | PM PDT | | | | | Until [facility] 03/19/17 at 1244 | | | | | | + +-------+ +---------+---+---+ +---+---+ | | | +---+---+ + +---------+ + +--------+---+ | propofol (DIPRIVAN) injection | New Bag | 03/19/20 | 30 | 20.34 | | | INTRAPROCEDURE CONTINUOUS PRN, | | 17 9:26 | mcg/kg/m | mL/hr | | | Starting [facility] 03/19/17 at 0926, | | AM PDT | in | | | | Until [facility] 03/19/17 at 1244 | | | [...]
--- OUTSIDE RECORDS SUMMARY | ~2020-03-04 | XMS | Encounter Summary ---
Demographics + + + | Address | [address] | | | [place] [address] | + + + | Home Phone [...] [place], [place] | | | | | [address] | | + + + + + Care Team Providers + +------+ + | Care Dinkey Operator Slate Name | Role | Phone | + [...] Ischemic | MD Lauren | [address] | | | | | cardiomyopat | [address] | [place], | | | | | hy | [address] | [place] | | | | | Procedures | [place], | [address] | | | | | ECHO | [place] [address] | Phone: | | | | | Complete [place] | Phone: | [phone] | | | | | ECHO HEART | [phone] | Fax: | | | | | [place] | Fax: | [phone] | | | | | MPLETE W | [phone] | | | | | | DOPPLER [...] Ischemic | MD Lauren | [address] | | | | | cardiomyopat | [address] | [place], | | | | | hy | [address] | [place] | | | | | Procedures | [place], | [address] | | | | | ECHO | [place] [address] | Phone: | | | | | Complete [place] | Phone: | [phone] | | | | | ECHO HEART | [phone] | Fax: | | | | | [place] | Fax: | [phone] | | | | | MPLETE W | [phone] | | | | | | DOPPLER [...] + + | 04/02/ | Hospital | [facility] | Lauren Figueroa, | Ischemic | | 2018 | Encounter | MED CTR ECHO [address] | MD [address] | cardiomyopathy | | | | [address] [place] | [place], | | | | | [place] [address] | [place] [address] | | | | | [phone] | [phone] | | | | | | | | | | | | Clarita Tena | | | | | | A, Technologist | | | | | | [place], [place] | | | | | | [address] | | +--------+ + + + + [...] 0 | | | | (VITAMIN D-3) [id number] | mouth Once a week. | | [...] | | | | [address] [place] | | | | | | [id number] | | | | | | | | +--------+ + + + + | 04/16/ | Office | Cardiology | Alin Anderson | | | 2019 | Visit | | MD [address] | | | | | | [address] | | | | | | [place] [address] | | | | | | [phone] | | | | | | | [...] [place] | | | | | | [address] | | | | | | | [...] Number Neena Patient Number | | | [id number] Date of Study 04/02/2018 Visit | | | Number [id number] Referring | | | Physician CAROLINA AGUILAR Number Date of 1955 | | | Associate Professor Of Management FRANNIE ISAACS [facility] Age | | | 62 year(s) Interpreting CAROLINA AGUILAR | | | Call Or Contact Centre Manager | | | LAUREN FIGUEROA, | | | Gender Male | | | Nurse | | | Stress Truck Sales Representative Procedure Type of Study TTE procedure: ECHO [...] 1 cm PW Diastolic: 0.9 cm EF Ihxmkzaup19% EF | | | Calculated: 32% Miscellaneous [...] Diastolic: 0.9 cm | | | EF Wfmjtuhrs50% | | | EF Calculated: 32% | [...] Room Number Neena Patient | | Number [id number] Date of Study 04/02/2018 Visit Number [id number] | | Referring Physician CAROLINA AGUILAR Number Date of | | 1955 Associate Professor Of Management FRANNIE ISAACS LORENZO Age 62 | | year(s) Interpreting CAROLINA AGUILAR | | Call Or Contact Centre Manager LAUREN FIGUEROA, | | Gender Male Nurse [...] 1 cm PW Diastolic: 0.9 cm EF Jchwdlcsr98% EF Calculated: 32% Miscellaneous | | Aorta [...] PW Diastolic: 0.9 cm | | EF Txqddpjsi32% | | EF Calculated: 32% | | [...]
--- OUTSIDE RECORDS SUMMARY | ~2020-03-04 | XMS | Encounter Summary ---
Demographics + + + | Address | [address] | | | [place] [address] | + + + | Home Phone [...] [place] | | | | | [address] | | + + + + + Care Team Providers + +------+ + | Care Wheel Lacer And Truer Name | Role | Phone | + [...] | | involving | [address] | [place] | | | | | [place] | [place], [place] | [place], [place] | | | | | coronary | [address] | [address] | | | | | artery of | Phone: | Phone: | | | | | [place]ann[place] heart | [phone] | [phone] | | | | | without | Fax: | Fax: | | | | | angina | [phone] | [phone] | | | | | pectoris | | | +--------+ + + + + + Encounter Details +--------+---------+ + + + | Date | Type | Department | Care Team | Description | +--------+---------+ + + + | 10/21/ | Office | [facility] | Randy Figueroa, | Coronary artery | | 2019 | Visit | MED CTR CARDIAC | MD [address] | disease, angina | | | | REHABILITATION [address] | [facility] [place], | presence | | | | [address] [place] | [place] [address] | unspecified, | | | | [place] [address] | [phone] | unspecified vessel | | | | [phone] | | or lesion type, | | | | | | unspecified whether | | | | | | [place] or | | | | | | [...] of this encounter Progress Notes Ana Thomas, HOSE INSPECTOR AND PATCHER - 10/21/2018 10:[address] [facility] CARDIAC REHABILITATION [address] [facility] [address] Cardiac Rehab Date: 10/21/2018 Patient Information Patient Name: Bob Will Date of : 1955 Age: 62 y.o. Encounter Diagnoses Code Name Primary? I25.10 Coronary artery disease, angina presence unspecified, unspecified vessel or lesi on type, unspecified whether [place] or transplanted heart Yes Number of Visits [...] which is much higher than Ashok's norm. playground monitor was placed. No significant change noted [...] had came directly to rehab from the [place] clinic where changes in medication was made. Ashok states they stopped his Entresto and increased Lasix to two tabs daily. also notified to [facility] Ashok. Any abnormal vital signs or rhythm strips will be reported in progress note. Electronically signed by: Ana Thomas RRT, 10/21/2018 14:30 Patient Name: Bob Will/: 1955/ ly signed by Ana Thomas RRT at 10/21/2018 2:38 PM PSTdocumented in this encounter Plan of [...] [place] | | | | | | [address] | | | | | | | | +--------+ + + + + | 04/16/ | Office | Cardiology | Alin Anderson | | | 2019 | Visit | | MD Cheryl Arreg[address] | | | | | | [address] | | | | | | [place] [address] | | | | | | [phone] | | | | | | | [...] [place] | | | | | | [address] | | | | | | | | +--------+ + + + + documented as of this encounter Visit Diagnoses + + | Diagnosis | + + | Coronary artery disease, angina presence unspecified, unspecified vessel or lesion | | type, unspecified whether shoshone[place]bannock or transplanted heart - Primary | + + documented in this encounter"
--- OUTSIDE RECORDS SUMMARY | ~2020-03-04 | XMS | Encounter Summary ---
Demographics + + + | Address | [address] | | | [place] [address] | + + + | Home Phone [...] [place] | | | | | [address] | | + + + + + [...] | | involving | [address] | [place] | | | | | [place] | [place], [place] | [place], [place] | | | | | coronary | [address] | [address] | | | | | artery of | Phone: | Phone: | | | | | [place] heart | [phone] | [phone] | | | | | without | Fax: | Fax: | | | | | angina | [phone] | [phone] | | | | | pectoris | | | +--------+ + + + + + Encounter Details +--------+---------+ + + + | Date | Type | Department | Care Team | Description | +--------+---------+ + + + | 08/12/ | Office | [facility] | Randy Figueroa, | Coronary artery | | 2018 | Visit | MED CTR CARDIAC | MD [address] | disease involving | | | | REHABILITATION [address] | [place], | [place] coronary | | | | [address] [place] | [place] [address] | artery of [place] | | | | [place] [address] | [phone] | heart without angina | | | | [phone] | | pectoris (Primary | | | [...] of this encounter Progress Jonah Coker-Cheri Kendrick, CORE SHAPER TOP - 08/12/2018 10:00 AM PST [facility] CARDIAC REHABILITATION [address] [facility] [address] Cardiac Rehab Date: 08/12/2018 Patient Information Patient Name: Bob Will Date of : 1955 Age: 62 y.o. Encounter Diagnoses Code Name Primary? I25.10 Coronary artery disease involving duck[place] coronary artery of [place] heart without angina pectoris Yes Number of [...] | 03/12/ | Office | [facility] | Visit | | ADARSH [address] | | | | | | [address] [facility] | | | | | | [address] [place] | | | | | | [address] | | | | | | | | +--------+ + + + + | 04/16/ | Office | Cardiology | Alin Anderson | | 2019 | Visit | | MD Cheryl Arreguin | | | | | | [address] | | | | | | [place] [address] | | | | | | [phone] | | | | | | | [...] [place] | | | | | | [address] | | | | | | | | +--------+ + + + + documented as of this encounter Visit Diagnoses + + | Diagnosis | + + | Coronary artery disease involving duck[place] coronary artery of duck[place] heart without | | angina pectoris - Primary | + + documented in this encounter"
--- OUTSIDE RECORDS SUMMARY | ~2020-03-04 | XMS | Encounter Summary ---
Demographics + + + | Address | [address] | | | [place] [address] | + + + | Home Phone [...] [place] | | | | | [address] | | + + + + + Care Team Providers + +------+ + | Care Assistant Media Planner Name | Role | Phone | + +------+ + | Chato Matson MD | PCP | | + +------+ + Reason for Visit + +--------+ + | Reason | Onset | Comments | | | Date | | + +--------+ + | Referral (Follow up) | 06/11/ | Amiodarione | | | 2017 | | + +--------+ + Encounter Details +--------+ + + + + | Date | Type | Department | Care Team | Description | +--------+ + + + + | 06/11/ | Telephone | [facility] | Jenny, | Referral (Follow up) | | 2017 | | CARDIOLOGY [address] | ADARSH [address] | (Amiodarione) | | | | [place], | [place], | | | | | [place] [address] | [place] [address] | | | | | [phone] | [phone] | | | | | | | [...] this encounter Miscellaneous Notes Telephone Encounter - Kelly Rodriguez RN - 06/11/2018 11:29 AM Kayla called stating she spoke with Dr Barbosa today regarding patients VT and he is going to work patient in to be seen on 06/15 when he is in [place] for Advanced Heart Failure visit. ADARSH Melendez start Amiodarone. Hansa gave me a verbal order for 400mg amiodaro ne 3 times a day for 10 days then decreased to 200 mg daily. Patient is notified and agreeab le. Electronically signed by: Kelly Rodriguez RN 06/11/2018 11:33 documented in this encounter Plan of Treatment +--------+ + + + + | Date | Type | Specialty | Care Team | Description | +--------+ + + + + | 03/12/ | Office | Nephrology | Litzy, | | | 2019 | Visit | | ADARSH [address] | | | | | | [address] [facility] | | | | | | [address] [place] | | | | | | [address] | | | | | | | | +--------+ + + + + | 04/16/ | Office | Cardiology | Alin Anderson | | | 2019 | Visit | | MD Cheryl Arreguin | | | | | | [address] | | | | | | [place] [address] | | | | | | [phone] | | | | | | | [...] [place] | | | | | | [address] | | | | | | | | +--------+ + + + + documented as of this encounter Visit Diagnoses Not on filedocumented in this encounter"
--- OUTSIDE RECORDS SUMMARY | ~2020-03-04 | XMS | Encounter Summary ---
Demographics + + + | Address | [address] | | | [place] [address] | + + + | Home Phone [...] [place] | | | | | [address] | | + + + + + Care Team Providers + +------+ + | Care Rn Cardiac Name | Role | Phone | + [...] | Way [place], [place] | failure) ([facility]) | | | | [address] | [address] | (Primary Dx) | | | | [place] [address] | | | | | | [phone] | | | +--------+---------+ + + + [...] [place] | | | | | | [address] | | | | | | | | +--------+ + + + + | 04/16/ | Office | Cardiology | Alin Anderson | | | 2019 | Visit | | MD Cheryl Arreg[address] | | | | | | [address] | | | | | | [place] [address] | | | | | | [phone] | | | | | | | [...] [place] | | | | | | [address] | | | | | | | | +--------+ + + + + documented as of this encounter Visit Diagnoses + + | Diagnosis | + + | Chronic systolic CHF (congestive heart failure) (HCC) - Primary | + + documented in this encounter"
--- OUTSIDE RECORDS SUMMARY | ~2020-03-04 | XMS | Encounter Summary ---
Demographics + + + | Address | [address] | | | [place] [address] | + + + | Home Phone [...] [place] | | | | | [address] | | + + + + + Care Team Providers + +------+ + | Care Law Researcher Name | Role | Phone | + [...] Description | +--------+---------+ + + + | 08/25/ | Office | [facility] | Amy Olivares V, | Chronic systolic CHF | | 2019 | Visit | MED CTR CARDIAC | [address] | (congestive heart | | | | REHABILITATION [address] | Way [place], [place] | failure) ([facility]) | | | | [address] | [address] | | | | | [place] [address] | | | | | | [phone] | | | +--------+---------+ + + + [...] of this encounter Progress Notes Kathy Garcia, PUBLIC TRANSIT BUS DRIVER - 08/25/2019 11:00 AM PSTFormatting of this note might be different f rom the original. [facility] CARDIAC REHABILITATION [address] [facility] [address] Cardiac Rehab Date: 08/25/2019 Patient Information Patient Name: Bob Will Date of : 1955 Age: 63 y.o. Encounter Diagnoses Code Name Primary? I50.22 Chronic systolic CHF (congestive heart failure) ([facility]) Number of Visits Approved: 34 kx Taken Medications Today? Yes Any Changes in Medications? Yes, changed to no longer taking Metoprolol and changed doses o n amiodarone. Pain was #8 on his right leg. Any Problems to Report? Yes, He did not feel well today. He did not feel up to finishing wo rk out with the weights. Ventricular paced rhythm without ectopy. Pre O2: 97%, Durin%, SBP prior to exercise 90 /50; post B/P 100/60. Compliant with medications and therapeutic lifestyle changes. Continue monitored exercise.. Any abnormal vital signs or rhythm strips will be reported in progress note. Electronically signed by: Kathy Garcia RRT, 08/25/2019 3:04 PM Patient Name: Bob Will/: 1955/ ly signed by Kathy Garcia RRT at 08/25/2019 3:08 PM PSTMitchell, Kathy Pierce RRT - 08/25/20 11:00 AM PST [facility] CARDIAC REHABILITATION [address] [place] [address] Cardiac Rehab 60 Day Review Date: 08/25/2019 Patient Information Patient Name: Bob Will Date [...] appendage thrombus, recent status post stents to, SYSTEMS CHECKOUT MECHANIC-D placement in [facility] on 10/17/2017. Patient's states that his [...] with Heart Failure book Date received: 06/02/19 Giladrdo lino Goal(s) Aerobic- moderate intensity activity 30 [...] Healthy Dietary Education Date: 06/02/19 -Referral to Quantitative Equity Head: Date: -DVD: Healthy Eating For Life [...] a diet reduced saturated fats . Niharika betbirgit Mellitus History of diabetes: No Treatment: Last hemoglobin A1C: Value: Date: Interventions -Evaluate blood sugar pre- and post- exercise until stable. Date: Range: -Referral to Paving Crew Foreman Date: Education Points listed below- Date Completed: [...] conditioning. Electronically signed by: Kathy Garcia RRT, 08/25/2019 2:25 PM Patient Name: Bob Will/: 1955/ [facility] CARDIAC REHABILITATION [address] [place] [address] Cardiac Rehab Date: 08/25/2019 Patient Information Patient Name: Bob Will Date of : 1955 Age: 63 y.o. Encounter Diagnoses Code Name Primary? I50.22 Chronic systolic CHF (congestive heart failure) (HCC) Number of Visits Approved: 34 kx His pain level was a 8, in his right leg. Taken Medications Today? Yes Any Changes in Medications? Yes, changed to no longer taking Metoprolol and changed doses o n amiodarone. Any Problems to Report? Yes, he was not feeling well today. He was only able to ride the bi ke for around 20 mins. He was unable to use weight machines. Ventricular paced rhythm without ectopy. Pre O2: 97%, Durin%, SBP prior to exercise 94 /58; during exercise 100/68. Post: 136/52 Compliant with medications and therapeutic lifestyle changes. Continue monitored exercise.. Any abnormal vital signs or rhythm strips will be reported in progress note. Electronically signed by: Kathy Garcia RRT, 08/25/2019 2:25 PM Patient Name: Bob Will/: 1955/ ly signed by Kathy Garcia RRT at 08/25/2019 2:32 PM PSTdocumented in this encounter Plan of [...] [place] | | | | | | [id number] | | | | | | | | +--------+ + + + + | 04/16/ | Office | Cardiology | Alin Anderson | | | 2019 | Visit | | MD [address] | | | | | | [address] | | | | | | [place] [address] | | | | | | [phone] | | | | | | | [...] [place] | | | | | | [address] | | | | | | | | +--------+ + + + + documented as of this encounter Visit Diagnoses + + | Diagnosis | + + | Chronic systolic CHF (congestive heart failure) (HCC) | + + documented in this encounter
--- OUTSIDE RECORDS SUMMARY | ~2020-03-04 | XMS | Encounter Summary ---
Demographics + + + | Address | [address] | | | [place] [address] | + + + | Home Phone [...] [place] | | | | | [address] | | + + + + + Care Team Providers + +------+ + | Care Sack Sorter Name | Role | Phone | [...] | | | heart | [place], | [place] | | | | | failure | [place] [address] | [place] | | | | | (HCC) | Phone: | [address] | | | | | I50.22 | [phone] | Phone: | | | | | Procedures | Fax: | [phone] | | | | | Cardiac | [phone] | Fax: | | | | | Rehab | | [phone] | +--------+--------+ + + + + Encounter Details +--------+---------+ + + + | Date | Type | Department | Care Team | Description | +--------+---------+ + + + | 07/21/ | Office | [facility] | Amy Olivares V, | Chronic systolic CHF | | 2019 | Visit | MED CTR CARDIAC | MD [address] | (congestive heart | | | | REHABILITATION [address] | Way [place], [place] | failure) ([facility]) | | | | [address] | [address] | | | | | [place] [address] | | | | | | [phone] | | | +--------+---------+ + + + [...] of this encounter Progress Gael Ortega - 07/21/2019 12:00 PM PST [facility] CARDIAC REHABILITATION [address] [place] [address] Cardiac Rehab Date: 07/21/2019 Patient Information Patient Name: Bob Will Date of : 1955 Age: 63 y.o. Encounter Diagnoses Code Name Primary? I50.22 Chronic systolic CHF (congestive heart failure) ([facility]) Number of Visits Approved: 34 kx Taken Medications Today? Yes Any Changes in Medications? No Any Problems to Report? No No complaints with exertion. Ventricular paced rhythm without ectopy. Pre O2: 97%, Durin%, SBP prior to exercise 10 0/60; during exercise 98/62. Post: 102/58 Compliant with medications and therapeutic lifestyle changes. Continue monitored exercise. Patient complained today of leg pain, level 7. He was still ab le to maintain his Exercise routine, but not as intense. Any abnormal vital signs or rhythm strips will be reported in progress note. Electronically signed by: Gael Woo, 07/21/2019 11:36 AM Patient Name: Bob Will/: 1955/ ly signed by Maria Esther Fields RN at 07/21/2019 1:10 PM PSTdocumented in this encounter Plan of Treatment +--------+ + + + + | Date | Type | Specialty | Care Team | Description | +--------+ + + + + | 03/12/ | Office | Nephrology | Litzy, | | | 2019 | Visit | | ADARSH [address] | | | | | | [facility] | | | | | | [address] [place] | | | | | | [address] | | | | | | | | +--------+ + + + + | 04/16/ | Office | Cardiology | Alin Anderson | | | 2019 | Visit | | MD Cheryl Arreguin | | | | | | [address] | | | | | | [place] [address] | | | | | | [phone] | | | | | | | [...] [place] | | | | | | [address] | | | | | | | | +--------+ + + + + documented as of this encounter Visit Diagnoses + + | Diagnosis | + + | Chronic systolic CHF (congestive heart failure) (HCC) | + + documented in this encounter"
--- OUTSIDE RECORDS SUMMARY | ~2020-03-04 | XMS | Encounter Summary ---
Demographics + + + | Address | [address] | | | [place] [address] | + + + | Home Phone [...] [place], [place] | | | | | [address] | | + + + + + Care Team Providers + +------+ + | Care Ore Miner Blasting Name | Role | Phone | + [...] | | | | | failure, | [address] | | | | | | unspecified | [place], | | | | | | HF | [place] [address] | | | | | | chronicity, | Phone: | | | | | | unspecified | [phone] | | | | | | heart | Fax: | | | | | | failure type | [phone] | | | | | | ([facility]) | | | +--------+ + + + + + Encounter Details +--------+ + + + + | Date | Type | Department | Care Team | Description | +--------+ + + + + | 05/27/ | Orders Only | [facility] | Randy Figueroa, | Congestive heart | | 2018 | | CARDIOLOGY [address] | [address] [place] | failure, unspecified | | | | [place], | [place], | HF chronicity, | | | | [place] [address] | [place] [address] | unspecified heart | | | | [phone] | [phone] | failure type (HCC) | | | [...] [place] | | | | | | [address] | | | | | | | | +--------+ + + + + | 04/16/ | Office | Cardiology | Alin Anderson | | | 2019 | Visit | | MD Cheryl Arreguin | | | | | | [address] | | | | | | [place] [address] | | | | | | [phone] | | | | | | | [...] [place] | | | | | | [address] | | | | | | | [...]
--- OUTSIDE RECORDS SUMMARY | ~2020-03-04 | XMS | Encounter Summary ---
Demographics + + + | Address | [address] | | | [place] [address] | + + + | Home Phone [...] [place] | | | | | [address] | | + + + + + Care Team Providers + +------+ + | Care Curriculum Supervisor Name | Role | Phone | [...] + | 04/19/ | Telephone | [facility] | Jenny, | Other | | 2018 | | CARDIOLOGY [address] | [address]ARSH [address] | | | | | [place], | [place], | | | | | [place] [address] | [place] [address] | | | | | [phone] | [phone] | | | | | | | [...] Check-in Time: 10:30am Where to Check In: [facility] Admitting Desk Instructions 1. Nothing to eat [...] [place] | | | | | | [address] | | | | | | | | +--------+ + + + + | 04/16/ | Office | Cardiology | Alin Anderson | | | 2019 | Visit | | MD Cheryl Arreguin | | | | | | [address] | | | | | | [place] [address] | | | | | | [phone] | | | | | | | [...] [place] | | | | | | [address] | | | | | | | | +--------+ + + + + documented as of this encounter Visit Diagnoses Not on filedocumented in this encounter"
--- OUTSIDE RECORDS SUMMARY | ~2020-03-04 | XMS | Encounter Summary ---
Demographics + + + | Address | [address] | | | [place] [address] | + + + | Home Phone [...] [place] | | | | | [address] | | + + + + + Care Team Providers + +------+ + | Care Program Checker Name | Role | Phone | [...] | | | heart | [place], | [place] | | | | | failure | [place] [address] | [place] | | | | | (HCC) | Phone: | [address] | | | | | I50.22 | [phone] | Phone: | | | | | Procedures | Fax: | [phone] | | | | | Cardiac | [phone] | Fax: | | | | | Rehab | | [phone] | +--------+--------+ + + + + Encounter [...] Way [place], [place] | failure) ([facility]) | | | | [address] | [address] | | | | | [place] [address] | | | | | | [phone] | | | +--------+---------+ + + + [...] might be different f rom the original. [facility] CARDIAC REHABILITATION [address] [place] [address] Cardiac Rehab Date: 06/09/2019 Patient Information Patient [...] [place] | | | | | | [address] | | | | | | | | +--------+ + + + + | 04/16/ | Office | Cardiology | Alin Anderson | | | 2019 | Visit | | MD Cheryl Arreguin | | | | | | [address] | | | | | | [place] [address] | | | | | | [phone] | | | | | | | [...] [place] | | | | | | [address] | | | | | | | | +--------+ + + + + documented as of this encounter Visit Diagnoses + + | Diagnosis | + + | Chronic systolic CHF (congestive heart failure) (HCC) | + + documented in this encounter"
--- OUTSIDE RECORDS SUMMARY | ~2020-03-04 | XMS | Encounter Summary ---
Demographics + + + | Address | [address] | | | [place] [address] | + + + | Home Phone [...] [place] | | | | | [address] | | + + + + + Care Team Providers + +------+ + | Care Scale Shooter Name | Role | Phone | + +------+ + | Amy Olivares MD | PCP | | + +------+ + Reason for Visit +--------+--------+ + | Reason | Onset | Comments | | | Date | | +--------+--------+ + | Other | 08/15/ | [facility] | | | 2019 | | +--------+--------+ + Encounter Details +--------+ + + + + | Date | Type | Department | Care Team | Description | +--------+ + + + + | 08/15/ | Telephone | [facility] | Randy Figueroa, | Other ([facility]) | | 2019 | | CARDIOLOGY [address] | [address] [place] | | | | | [place], | [place], | | | | | [place] [address] | [place] [address] | | | | | [phone] | [phone] | | | | | | | [...] Telephone Encounter - Kelly Rodriguez RN - 08/15/2019 3:11 PM PSTNotes indicate patient baig s not plan on returning to our office and has been following with Dr Anderson at [facility], so remotes are released to them. Electronically signed by: Kelly Rodriguez RN 3:12 PM documented in t his encounter Plan of [...] F | | | | | | [place] [address] | | | | | | [phone] | | | | | | | [...] [place] | | | | | | [address] | | | | | | | | +--------+ + + + + documented as of this encounter Visit Diagnoses Not on filedocumented in this encounter"
--- OUTSIDE RECORDS SUMMARY | ~2020-03-04 | XMS | Encounter Summary ---
Demographics + + + | Address | [address] | | | [place] [address] | + + + | Home Phone [...] [place], [place] | | | | | [address] | | + + + + + Care Team Providers + +------+ + | Care Supervisor Kosher [employer] Name | Role | Phone | + [...] | | involving | [address] | [place] | | | | | [place] | [place] [address] | [place] | | | | | coronary | [address] | [address] | | | | | artery of | Phone: | Phone: | | | | | [place] heart | [phone] | [phone] | | | | | without | Fax: | Fax: | | | | | angina | [phone] | [phone] | | | | | pectoris | | | +--------+ + + + + + Encounter Details +--------+---------+ + + + | Date | Type | Department | Care Team | Description | +--------+---------+ + + + | 11/30/ | Office | [facility] | Randy Figueroa, | Coronary artery | | 2019 | Visit | MED CTR CARDIAC | MD [address] | disease involving | | | | REHABILITATION [address] | [place], | [place] coronary | | | | [address] [place] | [place] [address] | artery of [place] | | | | [place] [address] | [phone] | heart without angina | | | | [phone] | | pectoris (Primary | | | [...] Gael Ortega - 11/30/2018 10:00 AM PDT [facility] CARD[facility]AC [facility]IL[facility]ATION [address] [place] [address] Cardiac Rehab Date: 11/30/2018 Patient Information Patient Name: Bob Will Date of : 1955 Age: 63 y.o. Encounter Diagnoses Code Name Primary? I25.10 Coronary artery disease involving [place] coronary artery of [place] heart without angina pectoris Yes Z98.61 Post [...] [place] | | | | | | [address] | | | | | | | | +--------+ + + + + | 04/16/ | Office | Cardiology | Alin Anderson | | | 2019 | Visit | | MD Cheryl Arreguin | | | | | | [address] | | | | | | [place] [address] | | | | | | [phone] | | | | | | | [...] [place] | | | | | | [address] | | | | | | | | +--------+ + + + + documented as of this encounter Visit Diagnoses + + | Diagnosis | + + | Coronary artery disease involving [place] coronary artery of [place] heart without | | angina pectoris - Primary | + + | Post PTCA Postsurgical percutaneous transluminal coronary angioplasty status | + + documented in this encounter"
--- OUTSIDE RECORDS SUMMARY | ~2020-03-04 | XMS | Encounter Summary ---
Demographics + + + | Address | [address] | | | [place] [address] | + + + | Home Phone [...] [place], [place] | | | | | [address] | | + + + + + Care Team Providers + +------+ + | Care Bus Starter Name | Role | Phone | + [...] | CARDIOLOGY [address] | [address] [place] | defibrillator | | | | [place], | [place], | reprogramming/check | | | | [place] [address] | [place] [address] | (Primary Dx); BUHR DRESSER-D | | | | [phone] | [phone] | (AICD) Medtronic | | | | [...] [place] | | | | | | [id number] | | | | | | | | +--------+ + + + + | 04/16/ | Office | Cardiology | Alin Anderson | | 2019 | Visit | | MD [address] | | | | | | [address] | | | | | | [place] [address] | | | | | | [phone] | | | | | | | | +--------+ + + + + | 04/16/ | Procedure | Cardiology | | | | 2019 | visit | | | | +--------+ + + + + | 04/25/ | Office | Cardiology | Rocio Pearl, | | | 2019 | Visit | | MD Cheryl [address] | | | | | | [place] | | | | | | [address] | | | | | | | [...] results section. | | | | | BUHR DRESSER-D (AICD) | | | | | | [...] | | | remote PDF scanned into [employer] for remote interrogation results. Data | | [...] implantable cardiac defibrillator | + + | BUHR DRESSER-D (AICD) Medtronic 10/16/17 EULOGIO Darby | + + | Ischemic cardiomyopathy Other specified forms of chronic ischemic heart disease | + + documented in this encounter"
--- OUTSIDE RECORDS SUMMARY | ~2020-03-04 | XMS | Encounter Summary ---
Demographics + + + | Address | [address] | | | [place] [address] | + + + | Home Phone [...] [place] | | | | | [address] | | + + + + + Care Team Providers + +------+ + | Care Rope Silica Machine Operator Name | Role | Phone [...] Way [place], [place] | failure) ([facility]) | | | | [address] | [address] | (Primary Dx) | | | | [place] [address] | | | | | | [phone] | | | +--------+---------+ + + + [...] | | | | [address] [facility] | | | | | | [address] [place] | | | | | | [address] | | | | | | | | +--------+ + + + + | 04/16/ | Office | Cardiology | Alin Anderson | | | 2019 | Visit | | MD Cheryl Arreguin | | | | | | [address] | | | | | | [place] [address] | | | | | | [phone] | | | | | | | [...] [place] | | | | | | [address] | | | | | | | | +--------+ + + + + documented as of this encounter Visit Diagnoses + + | Diagnosis | + + | Chronic systolic CHF (congestive heart failure) (HCC) - Primary | + + documented in this encounter"
--- OUTSIDE RECORDS SUMMARY | ~2020-03-04 | XMS | Encounter Summary ---
Demographics + + + | Address | [address] | | | [place] [address] | + + + | Home Phone [...] [place] | | | | | [address] | | + + + + + Care Team Providers + +------+ + | Care Textile Artist Name | Role | Phone | [...] | systolic CHF | [address] | [place], [place] | | | | | (congestive | [place], [place] | [address] Phone: | | | | | heart | [address] | | | | | | failure) [...] + + | 07/25/ | Office | [facility] EP | Alin Ayoub | Ischemic | | 2019 | Visit | CARDIOLOGY [place] | MD [address] | cardiomyopathy | | | | [address] | [address] [place] | (Primary Dx); Status | | | | [place], [place] | [place] [address] | post internal | | | | [address] | [phone] | cardiac | | | | [phone] | | defibrillator | | | | | | procedure; Atrial | | | | | | flutter, unspecified | | | | | | type ([facility]); | | | | | | Thrombus of left | | | | | | atrial appendage; | | | | | | Ventricular | | | | | | tachycardia ([facility]); | | | | | [...] his cardia c decision-making was performed in [place] at times of acute illness and he has not followe d up with any of the date pitter in [place] for some time. He has been on [...] Medical History: Diagnosis Date Acute anterior wall NE (HCC) 04/03/2017 Angiography and stent 03/15/2017 successful [...] LE Angio; Surgeon: Khurram Canas MD; Location: [facility] CV LAB ANGIOPLASTY Left 05/19/2018 Procedure: CV PTCA Only; Surgeon: Khurram Canas MD; Location: [facility] CV LAB CARDIAC CATHERIZATION N/A 10/03/2017 Procedure: CV Cor Angio; Surgeon: Delmer Dai MD; Location: [facility] CV LAB CARDIAC CATHERIZATION N/A 03/15/2017 Procedure: CV Cor Angio; Surgeon: Monse Ross MD; Location: [facility] CV LAB CARDIAC CATHERIZATION Left 05/19/2018 Procedure: CV RHC; Surgeon: Khurram Canas MD; Location: [facility] CV LAB CARDIAC CATHERIZATION Left 05/19/2018 Procedure: CV FFR/iFR; Surgeon: Khurram Canas MD; Location: [facility] CV LAB CARDIAC CATHERIZATION Left 05/19/2018 LM distal ISR, LAD ? stenosis, Cx 95-99% s/p PTCA, RCA LI ELBOW SURGERY Left GALLBLADDER SURGERY LEFT VENTRICULAR ASSIST DEVICE Right 05/19/2018 Procedure: CV PERC [facility] CIRC SUPPORT; Surgeon: Khurram Canas MD; Location: [facility] CV LAB NASAL SEPTUM SURGERY TONSILLECTOMY TRANSTHORACIC ECHOCARDIOGRAM 10/2018 EF 25-30%, anterior/anteroseptal/inferoseptal/inferior AK, mild TR, tr MR, mod LA dil, mil d RA dil, RVSP 26 UPPER GASTROINTESTINAL ENDOSCOPY N/A 10/05/2017 Procedure: EGD; Surgeon: Terry Weir MD; Location: [facility] MEDICAL PROCEDURE UNIT Family History Problem [...] (with breakfast & dinner). Cholecalciferol (VITAMIN D-3) 21244 units CAPS Take by mouth Once a [...] a biventricular pacemaker/ICD implanted in 2017 in [place] by his account. His device was interrogated [...] [place] | | | | | | [address] | | | | | | | | +--------+ + + + + | 04/16/ | Office | Cardiology | Alin Ayoub | | | 2019 | Visit | | MD Cheryl Arreguin | | | | | | [address] | | | | | | [place] [address] | | | | | | [phone] | | | | | | | [...] [place] | | | | | | [address] | | | | | | | [...] | | | | | by [employer] [place] Read Only, | | | | | | [employer] [place] ([id number]), | | | | | | telegraph editor Lars Kennedy | | | | | | ([id number]) on 07/25/2019 | | | | | [...]
--- OUTSIDE RECORDS SUMMARY | ~2020-03-04 | XMS | Encounter Summary ---
Demographics + + + | Address | [address] | | | [place] [address] | + + + | Home Phone [...] [place] | | | | | [address] | | + + + + + Care Team Providers + +------+ + | Care Mortar Man Name | Role | Phone | [...] | | | heart | [place], | [place] | | | | | failure | [place] [address] | [place] | | | | | (HCC) | Phone: | [address] | | | | | [phone] | [phone] | Phone: | | | | | Procedures | Fax: | [phone] | | | | | Cardiac | [phone] | Fax: | | | | | Rehab | | [phone] | +--------+--------+ + + + + Encounter [...] | | | [address] | [address] | (Primary Dx) | | | | [place] [address] | | | | | | [phone] | | | +--------+---------+ + + + [...] of this encounter Progress Notes Kathy Garcia, BIOMETRICS SPECIALIST - 07/28/2019 12:00 PM PSTFormatting of this note might be different f rom the original. [facility] CARDIAC REHABILITATION [address] [place] [address] Cardiac Rehab Date: 07/28/2019 Patient Information Patient [...] [place] | | | | | | [id number] | | | | | | | | +--------+ + + + + | 04/16/ | Office | Cardiology | Alin Anderson | | | 2019 | Visit | | MD Cheryl Arreguin | | | | | | [address] | | | | | | [place] [address] | | | | | | [phone] | | | | | | | [...] [place] | | | | | | [address] | | | | | | | | +--------+ + + + + documented as of this encounter Visit Diagnoses + + | Diagnosis | + + | Chronic systolic CHF (congestive heart failure) (HCC) - Primary | + + documented in this encounter"
--- OUTSIDE RECORDS SUMMARY | ~2020-03-04 | XMS | Encounter Summary ---
Demographics + + + | Address | [address] | | | [place] [address] | + + + | Home Phone [...] [place] | | | | | [address] | | + + + + + Care Team Providers + +------+ + | Care Bottom Turning Lathe Tender Name | Role | Phone | + +------+ + | Amy Olivares MD | PCP | | + +------+ + Encounter Details +--------+ + + + + | Date | Type | Department | Care Team | Description | +--------+ + + + + | 06/20/ | Abstract | [facility] | [place], | | | 2019 | | NEPHROLOGY [address] | [address] | | | | | [address] | [address] | | | | | [place], [place] | [address] [place], [place] | | | | | [address] | [address] | | | | | [phone] | | | +--------+ + + + [...] | | | | | [address] [facility] | | | | | | [address] [place] | | | | | | [address] | | | | | | | | +--------+ + + + + | 04/16/ | Office | Cardiology | Alin Anderson | | | 2019 | Visit | | MD Cheryl Arreguin | | | | | | [address] | | | | | | [place] [address] | | | | | | [phone] | | | | | | | [...] [place] | | | | | | [address] | | | | | | | | +--------+ + + + + documented as of this encounter Procedures + +--------+ + + + | Procedure Name | Priori | Date/Time | Associated Diagnosis | Comments | | | ty | | | | + +--------+ + + + | EXTERNAL LAB: DONTE | Routin | 06/20/2019 | | Results for this | | | e | | | procedure are in the | | | | | | results section. | + +--------+ + + + | EXTERNAL LAB: | Routin | 06/20/2019 | | Results for this | | GLUCOSE | e | | | procedure are in the | | | | | | results section. | + +--------+ + + + | EXTERNAL LAB: | Routin | 06/20/2019 | | Results for this | | CALCIUM | e | | | procedure are in the | | | | | | results section. | + +--------+ + + + | EXTERNAL LAB: CARBON | Routin | 06/20/2019 | | Results for this | | DIOXIDE | e | | | procedure are in the | | | | | | results section. | + +--------+ + + + | EXTERNAL LAB: | Routin | 06/20/2019 | | Results for this | | CHLORIDE | e | | | procedure are in the | | | | | | results section. | + +--------+ + + + | EXTERNAL LAB: | Routin | 06/20/2019 | | Results for this | | POTASSIUM | e | | | procedure are in the | | | | | | results section. | + +--------+ + + + | EXTERNAL LAB: SODIUM | Routin | 06/20/2019 | | Results for this | | | e | | | procedure are in the | | | | | | results section. | + +--------+ + + + | EXTERNAL LAB: EGFR | Routin | 06/20/2019 | | Results for this | | | e | | | procedure are in the | | | | | | results section. | + +--------+ + + + | EXTERNAL LAB: | Routin | 06/20/2019 | | Results for this | | CREATININE | e | | | procedure are in the | | | | | | results section. | + +--------+ + + + documented in this encounter Results External Lab: BUN (06/20/2019) + +-------+ + + + | Component | Value | Ref Range | Performed | Pathologist | | | | | At | Signature | + +-------+ + + + | BUN, | 66 | | EXTERNAL | | | External | | | LAB | | + +-------+ + + + + +---------+ + + | Performing | Address | City/State/Zipcode | Phone Number | | Organization | | | | + +---------+ + + | EXTERNAL LAB | | | | + +---------+ + + External Lab: Glucose (06/20/2019) + +-------+ + + + | Component | Value | Ref Range | Performed | Pathologist | | | | | At | Signature | + +-------+ + + + | Glucose, | 141 | | EXTERNAL | | | External | | | LAB | | + +-------+ + + + + +---------+ + + | Performing | Address | City/State/Zipcode | Phone Number | | Organization | | | | + +---------+ + + | EXTERNAL LAB | | | | + +---------+ + + External Lab: Calcium (06/20/2019) + +-------+ + + + | Component | Value | Ref Range | Performed | Pathologist | | | | | At | Signature | + +-------+ + + + | Calcium, | 8.9 | | EXTERNAL | | | External | | | LAB | | + +-------+ + + + + +---------+ + + | Performing | Address | City/State/Zipcode | Phone Number | | Organization | | | | + +---------+ + + | EXTERNAL LAB | | | | + +---------+ + + External Lab: Carbon Dioxide (06/20/2019) + +-------+ + + + | Component | Value | Ref Range | Performed | Pathologist | | | | | At | Signature | + +-------+ + + + | Carbon | 36 | | EXTERNAL | | | Dioxide, | | | LAB | | | External | | | | | + +-------+ + + + + +---------+ + + | Performing | Address | City/State/Zipcode | Phone Number | | Organization | | | | + +---------+ + + | EXTERNAL LAB | | | | + +---------+ + + External Lab: Chloride (06/20/2019) + +-------+ + + + | Component | Value | Ref Range | Performed | Pathologist | | | | | At | Signature | + +-------+ + + + | Chloride, | 93 | | EXTERNAL | | | External | | | LAB | | + +-------+ + + + + +---------+ + + | Performing | Address | City/State/Zipcode | Phone Number | | Organization | | | | + +---------+ + + | EXTERNAL LAB | | | | + +---------+ + + External Lab: Potassium (06/20/2019) + +-------+ + + + | Component | Value | Ref Range | Performed | Pathologist | | | | | At | Signature | + +-------+ + + + | Potassium, | 3.2 | | EXTERNAL | | | External | | | LAB | | + +-------+ + + + + +---------+ + + | Performing | Address | City/State/Zipcode | Phone Number | | Organization | | | | + +---------+ + + | EXTERNAL LAB | | | | + +---------+ + + External Lab: Sodium (06/20/2019) + +-------+ + + + | Component | Value | Ref Range | Performed | Pathologist | | | | | At | Signature | + +-------+ + + + | Sodium, | 139 | | EXTERNAL | | | External | | | LAB | | + +-------+ + + + + +---------+ + + | Performing | Address | City/State/Zipcode | Phone Number | | Organization | | | | + +---------+ + + | EXTERNAL LAB | | | | + +---------+ + + External Lab: eGFR (06/20/2019) + +-------+ + + + | Component | Value | Ref Range | Performed | Pathologist | | | | | At | Signature | + +-------+ + + + | eGFR, | 25 | | EXTERNAL | | | External [...] + +---------+ + + External Lab: Creatinine (06/20/2019) + +-------+ + + + | Component | Value | Ref Range | Performed | Pathologist | | | | | At | Signature | + +-------+ + + + | Creatinine, | 2.59 | | EXTERNAL | | | External [...]
--- OUTSIDE RECORDS SUMMARY | ~2020-03-04 | XMS | Encounter Summary ---
Demographics + + + | Address | [address] | | | [place] [address] | + + + | Home Phone [...] [place] | | | | | [address] | | + + + + + Care Team Providers + +------+ + | Care Interpersonal Communications Professor Name | Role | Phone | [...] [address] | [address] [facility] | | | | | [place], [place] | [address] [place], [place] | | | | | [address] | [address] | | | | | [phone] | | | +--------+ + + + [...] 9:18 AM PDT----- Message from JESSICA Sethi SURVEYING [employer] sent at 03/10/2019 11:54 PDT ----- Patient [...] allergy list. Can you find out from co [facility] what med this was? Thanks documented [...] | | | | [address] [place] | | | | | | [id number] | | | | | | | | +--------+ + + + + | 04/16/ | Office | Cardiology | Alni Anderson | | | 2019 | Visit | | MD [address] | | | | | | [address] | | | | | | [place] [address] | | | | | | [phone] | | | | | | | [...] [place] | | | | | | [address] | | | | | | | | +--------+ + + + + documented as of this encounter Visit Diagnoses Not on filedocumented in this encounter"
--- OUTSIDE RECORDS SUMMARY | ~2020-03-04 | XMS | Encounter Summary ---
Demographics + + + | Address | [address] | | | [place] [address] | + + + | Home Phone [...] [place] | | | | | [address] | | + + + + + Care Team Providers + +------+ + | Care Credit Collection Specialist Name | Role | Phone | [...] | | | [address] | [address] | (Primary Dx) | | | | [place] [address] | | | | | | [phone] | | | +--------+---------+ + + + [...] [place] | | | | | | [address] | | | | | | | | +--------+ + + + + | 04/16/ | Office | Cardiology | Alin Anderson | | | 2019 | Visit | | MD Cheryl Arreguin | | | | | | [address] | | | | | | [place] [address] | | | | | | [phone] | | | | | | | [...] [place] | | | | | | [address] | | | | | | | | +--------+ + + + + documented as of this encounter Visit Diagnoses + + | Diagnosis | + + | Chronic systolic CHF (congestive heart failure) (HCC) - Primary | + + documented in this encounter"
--- OUTSIDE RECORDS SUMMARY | ~2020-03-04 | XMS | Encounter Summary ---
Demographics + + + | Address | [address] | | | [place] [address] | + + + | Home Phone [...] [place], [place] | | | | | [address] | | + + + + + Care Team Providers + +------+ + | Care Darkroom Technician Name | Role | Phone | [...] + + | 11/24/ | Hospital | [facility] | [place], | Coronary artery | | 2018 | Encounter | MED CTR ULTRASOUND | [address] | disease involving | | | | [address] [place] | [place], | [place] coronary | | | | [place], [place] | [place] [address] | artery of [place] | | | | [address] | [phone] | heart without angina | | | | [phone] | | pectoris | | | | [...] 0 | | | | (VITAMIN D-3) [address] | mouth Once a week. | | [...] [place] | | | | | | [address] | | | | | | | | +--------+ + + + + | 04/16/ | Office | Cardiology | Alin Anderson | | 2019 | Visit | | MD [address] | | | | | | [address] | | | | | | [facility] [place] [place] [address] | | | | | | [phone] | | | | | | | [...] [place] | | | | | | [address] | | | | | | | | +--------+ + + + + documented as of this encounter Procedures + +--------+ + + + | Procedure Name | Priori | Date/Time | Associated Diagnosis | Comments | | | ty | | | | + +--------+ + + + | VAS SEGMENTAL | Routin | 11/24/2017 | Coronary artery | Results for this | | PRESSURES LEGS | e | 3:55 PM | disease involving | procedure are in the | | | | PDT | [place] coronary | results section. | | | | | artery of [place] | | | | | | heart without angina | | | | | | pectoris | | + +--------+ + + + documented in this encounter Results VAS Segmental Pressures Legs (11/24/2017 3:55 PM [...] disease Dictated and Signed by: | | Ailn Ramírez MD Electronically signed: 11/24/2017 9:48 PM [...] + | Coronary artery disease involving [place] coronary artery of [place] heart without | | angina pectoris | + + documented in this encounter"
--- OUTSIDE RECORDS SUMMARY | ~2020-03-04 | XMS | Encounter Summary ---
Demographics + + + | Address | [address] | | | [place] [address] | + + + | Home Phone [...] [place], [place] | | | | | [address] | | + + + + + Care Team Providers + +------+ + | Care Clarifier Operator Helper Name | Role | Phone [...] + + | 07/14/ | Telephone | [facility] | Jenny, | Other | | 2017 | | CARDIOLOGY [address] | [address] | | | | | [place], | [place], | | | | | [place] [address] | [place] [address] | | | | | [phone] | [phone] | | | | | | | [...] | | | | [address] [place] [place] | | | | | | [address] | | | | | | | | +--------+ + + + + | 04/16/ | Office | Cardiology | Alin Anderson | | | 2019 | Visit | | MD Cheryl Arreguin | | | | | | [address] | | | | | | [place] [address] | | | | | | [phone] | | | | | | | [...] | | | | [address] [place] | | | | | | [address] | | | | | | | | +--------+ + + + + documented as of this encounter Visit Diagnoses Not on filedocumented in this encounter"
--- OUTSIDE RECORDS SUMMARY | ~2020-03-04 | XMS | Encounter Summary ---
Demographics + + + | Address | [address] | | | [place] [address] | + + + | Home Phone [...] [place], [place] | | | | | [address] | | + + + + + Care Team Providers + +------+ + | Care Biscuitware Brusher Name | Role | Phone | + [...] Provider Unknown | | | | | [place], [place] | [phone] | | | | | [address] | (Fax) | | | | | [phone] | | | +--------+ + + + [...] [place] | | | | | | [address] | | | | | | | | +--------+ + + + + | 04/16/ | Office | Cardiology | Alin Anderson | | | 2019 | Visit | | MD Cheryl Arreguin | | | | | | [address] | | | | | | [place] [address] | | | | | | [phone] | | | | | | | [...] [place] | | | | | | [address] | | | | | | | | +--------+ + + + + documented as of this encounter Procedures + +--------+ + + + | Procedure Name | Priori | Date/Time | Associated Diagnosis | Comments | | | ty | | | | + +--------+ + + + | ECHO COMPLETE | Routin | 05/07/2017 | | Results for this | | | e | 3:59 AM | | procedure are in the | | | | PDT | | results section. | + +--------+ + + + documented in this encounter Results ECHO Complete (05/07/2017 3:59 AM PDT) + + | Specimen [...]
--- OUTSIDE RECORDS SUMMARY | ~2020-03-04 | XMS | Encounter Summary ---
Demographics + + + | Address | [address] | | | [place] [address] | + + + | Home Phone [...] [place], [place] | | | | | [address] | | + + + + + Care Team Providers + +------+ + | Care Supervisor Model Making Name | Role | Phone | + [...] + | 11/18/ | Telephone | [facility] | Jenny, | Blood Pressure | | 2018 | | CARDIOLOGY [address] | Hansa [address] P[address]ER [address] | | | | | [place], | [place], | | | | | [place] [address] | [place] [address] | | | | | [phone] | | | | | | | [...] ADARSH Stevens 11/19/2018 17:55 elephone Pamela Gasca, Account Executive [employer] - 11/18/2018 5:32 PM PDTFormatting of this [...] F | | | | | | [place] [address] | | | | | | [phone] | | | | | | | [...] [place] | | | | | | [address] | | | | | | | | +--------+ + + + + documented as of this encounter Visit Diagnoses Not on filedocumented in this encounter"
--- OUTSIDE RECORDS SUMMARY | ~2020-03-04 | XMS | Encounter Summary ---
Demographics + + + | Address | [address] | | | [place] [address] | + + + | Home Phone [...] [place] | | | | | [address] | | + + + + + Care Team Providers + +------+ + | Care Svp Of Digital Name | Role | Phone | + [...] + + | 06/06/ | Telephone | [facility] | Jenny, | Other (amiodarone | | 2018 | | CARDIOLOGY [address] | ADARSH Santo [address] | protocol) | | | | [place], | [place], | | | | | [place] [address] | [place] [address] | | | | | [phone] | | | | | | | [...] our patient. He will be seeing a facilities technician in [place]. A facilities technician comes twice a month to [place] from [facility] ..........................................Suzanne Cheng RN on 06/06/19 at 13:46 documented in thi s encounter Plan of Treatment +--------+ + + + + | Date | Type | Specialty | Care Team | Description | +--------+ + + + + | 03/12/ | Office | Nephrology | [facility], | | | 2019 | Visit | | ADARSH [address] | | | | | | [facility] | | | | | | [...] | | | | | [place] [address] | | | | | | [phone] | | | | | | | [...] [place] | | | | | | [address] | | | | | | | | +--------+ + + + + documented as of this encounter Visit Diagnoses Not on filedocumented in this encounter"
--- OUTSIDE RECORDS SUMMARY | ~2020-03-04 | XMS | Encounter Summary ---
Demographics + + + | Address | [address] | | | [place] [address] | + + + | Home Phone [...] [place], [place] | | | | | [address] | | + + + + + Care Team Providers + +------+ + | Care Silk Screen Printer Name | Role | Phone | [...] [address] | | | | | [place], | [place], | | | | | [place] [address] | [place] [address] | | | | | [phone] | | | | | | | [...] [place] | | | | | | [address] | | | | | | | | +--------+ + + + + | 04/16/ | Office | Cardiology | Alin Anderson | | | 2019 | Visit | | MD Cheryl Arreguin | | | | | | [address] | | | | | | [place] [address] | | | | | | [phone] | | | | | | | [...] [place] | | | | | | [address] | | | | | | | [...]
--- OUTSIDE RECORDS SUMMARY | ~2020-03-04 | XMS | Encounter Summary ---
Demographics + + + | Address | [address] | | | [place] [address] | + + + | Home Phone [...] [place], [place] | | | | | [address] | | + + + + + Care Team Providers + +------+ + | Care Insurance Analyst Name | Role | Phone | [...] | | CARDIOLOGY [address] | Hansa, [address] SUPERVISOR [address] | | | | | [place], | [place], | | | | | [place] [address] | [place] [address] | | | | | [phone] | | | | | | | [...] [place] | | | | | | [address] | | | | | | | | +--------+ + + + + | 04/16/ | Office | Cardiology | Alin Anderson | | | 2019 | Visit | | MD [address] | | | | | | [address] | | | | | | [place] [address] | | | | | | [phone] | | | | | | | [...] [place] | | | | | | [address] | | | | | | | | +--------+ + + + + documented as of this encounter Visit Diagnoses Not on filedocumented in this encounter"
--- OUTSIDE RECORDS SUMMARY | ~2020-03-04 | XMS | Encounter Summary ---
Demographics + + + | Address | [address] | | | [place] [address] | + + + | Home Phone [...] [place] | | | | | [address] | | + + + + + Care Team Providers + +------+ + | Care Statistical Typist Name | Role | Phone | + +------+ + | Amy Olivares MD | PCP | | + +------+ + Encounter Details +--------+ + + + + | Date | Type | Department | Care Team | Description | +--------+ + + + + | 03/08/ | Abstract | [facility] [place] | [place], | | | 2019 | | NEPHROLOGY [address] | ADARSH [address] | | | | | [address] | [address] | | | | | [place], [place] | [address] [place], [place] | | | | | [address] | [address] | | | | | [phone] | | | +--------+ + + + [...] | | | | | [facility] | | | | | | [address] [place] | | | | | | [address] | | | | | | | | +--------+ + + + + | 04/16/ | Office | Cardiology | Alin Anderson | | | 2019 | Visit | | MD Cheryl Arreguin | | | | | | [address] | | | | | | [place] [address] | | | | | | [phone] | | | | | | | [...] [place] | | | | | | [address] | | | | | | | | +--------+ + + + + documented as of this encounter Procedures + +--------+ + + + | Procedure Name | Priori | Date/Time | Associated Diagnosis | Comments | | | ty | | | | + +--------+ + + + | EXTERNAL LAB: DONTE | Routin | 03/08/2019 | | Results for this | | | e | | | procedure are in the | | | | | | results section. | + +--------+ + + + | EXTERNAL LAB: | Routin | 03/08/2019 | | Results for this | | GLUCOSE | e | | | procedure are in the | | | | | | results section. | + +--------+ + + + | EXTERNAL LAB: | Routin | 03/08/2019 | | Results for this | | ALBUMIN | e | | | procedure are in the | | | | | | results section. | + +--------+ + + + | EXTERNAL LAB: | Routin | 03/08/2019 | | Results for this | | PHOSPHORUS | e | | | procedure are in the | | | | | | results section. | + +--------+ + + + | EXTERNAL LAB: | Routin | 03/08/2019 | | Results for this | | CALCIUM | e | | | procedure are in the | | | | | | results section. | + +--------+ + + + | EXTERNAL LAB: CARBON | Routin | 03/08/2019 | | Results for this | | DIOXIDE | e | | | procedure are in the | | | | | | results section. | + +--------+ + + + | EXTERNAL LAB: | Routin | 03/08/2019 | | Results for this | | CHLORIDE | e | | | procedure are in the | | | | | | results section. | + +--------+ + + + | EXTERNAL LAB: | Routin | 03/08/2019 | | Results for this | | POTASSIUM | e | | | procedure are in the | | | | | | results section. | + +--------+ + + + | EXTERNAL LAB: SODIUM | Routin | 03/08/2019 | | Results for this | | | e | | | procedure are in the | | | | | | results section. | + +--------+ + + + | EXTERNAL LAB: | Routin | 03/08/2019 | | Results for this | | VITAMIN D, | e | | | procedure are in the | | 25-HYDROXY | | | | results section. | + +--------+ + + + | EXTERNAL LAB: | Routin | 03/08/2019 | | Results for this | | URINALYSIS | e | | | procedure are in the | | | | | | results section. | + +--------+ + + + | EXTERNAL LAB: ROBIN | Routin | 03/08/2019 | | Results for this | | INTACT | e | | | procedure are in the | | | | | | results section. | + +--------+ + + + | EXTERNAL LAB: | Routin | 03/08/2019 | | Results for this | | PROTEIN/CREATININE | e | | | procedure are in the | | RATIO | | | | results section. | + +--------+ + + + | EXTERNAL LAB: IRON | Routin | 03/08/2019 | | Results for this | | TOTAL | e | | | procedure are in the | | | | | | results section. | + +--------+ + + + | EXTERNAL LAB: IRON | Routin | 03/08/2019 | | Results for this | | SATURATION | e | | | procedure are in the | | | | | | results section. | + +--------+ + + + | EXTERNAL LAB: IRON | Routin | 03/08/2019 | | Results for this | | BINDING CAPACITY | e | | | procedure are in the | | | | | | results section. | + +--------+ + + + | EXTERNAL LAB: | Routin | 03/08/2019 | | Results for this | | FERRITIN | e | | | procedure are in the | | | | | | results section. | + +--------+ + + + | EXTERNAL LAB: CBC | Routin | 03/08/2019 | | Results for this | | | e | | | procedure are in the | | | | | | results section. | + +--------+ + + + | EXTERNAL LAB: EGFR | Routin | 03/08/2019 | | Results for this | | | e | | | procedure are in the | | | | | | results section. | + +--------+ + + + | EXTERNAL LAB: | Routin | 03/08/2019 | | Results for this | | CREATININE | e | | | procedure are in the | | | | | | results section. | + +--------+ + + + | URINALYSIS WITH | Routin | 03/08/2019 | | Results for this | | MICROSCOPIC | e | | | procedure are in the | | | | | | results section. | + +--------+ + + + documented in this encounter Results External Lab: PTH, Intact (03/08/2019) + +-------+ + + + | Component | Value | Ref Range | Performed | Pathologist | | | | | At | Signature | + +-------+ + + + | PTH Intact, | 133.7 | | | | | External | | | | | + +-------+ + + + + + | Specimen | + + | | + + External Lab: Protein/Creatinine Ratio (03/08/2019) + +-------+ + + + | Component | Value | Ref Range | Performed | Pathologist | | | | | At | Signature | + +-------+ + + + | Protein/Cre | 0.126 | 0.2 | | | | atinine | | | | | | Ratio, | | | | | | External | | | | | + +-------+ + + + + + | Specimen | + + | | + + Urinalysis With Microscopic (03/08/2019) + + + + + + | Component | Value | Ref Range | Performed | Pathologist | | | | | At | Signature | + + + + + + | WBC UA | 2 | /HPF | | | + + + + + + | Color, | Yellow | Light Yellow, | | | | Urine | | Yellow | | | + + + + + + | Clarity | Clear | | | | + + + + + + | Bacteria, | 1+ | | | | | UA | | | | | + + + + + + | SQUAMOUS | 1 | /HPF | | | | EPITHELIAL | | | | | | UA | | | | | + + + + + + | Nitrite, | Negative | Negative | | | | Urine | | | | | + + + + + + + + | Specimen | + + | Urine | + + External Lab: DONTE (03/08/2019) + +-------+ + + + | Component | Value | Ref Range | Performed | Pathologist | | | | | At | Signature | + +-------+ + + + | BUN, | 43 | | EXTERNAL | | | External | | | LAB | | + +-------+ + + + + +---------+ + + | Performing | Address | City/State/Zipcode | Phone Number | | Organization | | | | + +---------+ + + | EXTERNAL LAB | | | | + +---------+ + + External Lab: Glucose (03/08/2019) + +-------+ + + + | Component | Value | Ref Range | Performed | Pathologist | | | | | At | Signature | + +-------+ + + + | Glucose, | 129 | | EXTERNAL | | | External | | | LAB | | + +-------+ + + + + +---------+ + + | Performing | Address | City/State/Zipcode | Phone Number | | Organization | | | | + +---------+ + + | EXTERNAL LAB | | | | + +---------+ + + External Lab: Albumin (03/08/2019) + +-------+ + + + | Component | Value | Ref Range | Performed | Pathologist | | | | | At | Signature | + +-------+ + + + | Albumin, | 3.7 | | EXTERNAL | | | External | | | LAB | | + +-------+ + + + + +---------+ + + | Performing | Address | City/State/Zipcode | Phone Number | | Organization | | | | + +---------+ + + | EXTERNAL LAB | | | | + +---------+ + + External Lab: Phosphorus (03/08/2019) + +-------+ + + + | Component | Value | Ref Range | Performed | Pathologist | | | | | At | Signature | + +-------+ + + + | Phosphorus, | 3.9 | | EXTERNAL | | | External | | | LAB | | + +-------+ + + + + +---------+ + + | Performing | Address | City/State/Zipcode | Phone Number | | Organization | | | | + +---------+ + + | EXTERNAL LAB | | | | + +---------+ + + External Lab: Calcium (03/08/2019) + +-------+ + + + | Component | Value | Ref Range | Performed | Pathologist | | | | | At | Signature | + +-------+ + + + | Calcium, | 9.0 | | EXTERNAL | | | External | | | LAB | | + +-------+ + + + + +---------+ + + | Performing | Address | City/State/Zipcode | Phone Number | | Organization | | | | + +---------+ + + | EXTERNAL LAB | | | | + +---------+ + + External Lab: Carbon Dioxide (03/08/2019) + +-------+ + + + | Component | Value | Ref Range | Performed | Pathologist | | | | | At | Signature | + +-------+ + + + | Carbon | 38 | | EXTERNAL | | | Dioxide, | | | LAB | | | External | | | | | + +-------+ + + + + +---------+ + + | Performing | Address | City/State/Zipcode | Phone Number | | Organization | | | | + +---------+ + + | EXTERNAL LAB | | | | + +---------+ + + External Lab: Chloride (03/08/2019) + +-------+ + + + | Component | Value | Ref Range | Performed | Pathologist | | | | | At | Signature | + +-------+ + + + | Chloride, | 85 | | EXTERNAL | | | External | | | LAB | | + +-------+ + + + + +---------+ + + | Performing | Address | City/State/Zipcode | Phone Number | | Organization | | | | + +---------+ + + | EXTERNAL LAB | | | | + +---------+ + + External Lab: Potassium (03/08/2019) + +-------+ + + + | Component | Value | Ref Range | Performed | Pathologist | | | | | At | Signature | + +-------+ + + + | Potassium, | 3.4 | | EXTERNAL | | | External | | | LAB | | + +-------+ + + + + +---------+ + + | Performing | Address | City/State/Zipcode | Phone Number | | Organization | | | | + +---------+ + + | EXTERNAL LAB | | | | + +---------+ + + External Lab: Sodium (03/08/2019) + +-------+ + + + | Component | Value | Ref Range | Performed | Pathologist | | | | | At | Signature | + +-------+ + + + | Sodium, | 135 | | EXTERNAL | | | External | | | LAB | | + +-------+ + + + + +---------+ + + | Performing | Address | City/State/Zipcode | Phone Number | | Organization | | | | + +---------+ + + | EXTERNAL LAB | | | | + +---------+ + + External Lab: Vitamin D, 25-Hydroxy (03/08/2019) + +-------+ + + + | Component | Value | Ref Range | Performed | Pathologist | | | | | At | Signature | + +-------+ + + + | Vitamin D, | 37 | | EXTERNAL | | | 25-Hydroxy, | | | LAB | | | [...] | + +---------+ + + External Lab: Urinalysis (03/08/2019) + + + + + + | Component | Value | Ref Range | Performed | Pathologist | | | | | At | Signature | + + + + + + | UA Blood, | negative | | EXTERNAL | | | External | | | LAB | | + + + + + + | UA Glucose, | normal | | EXTERNAL | | | External | | | LAB | | + + + + + + | UA Ketones, | negative | | EXTERNAL | | | External | | | LAB | | + + + + + + | UA Ph, | 7 | | EXTERNAL | | | External | | | LAB | | + + + + + + | UA | negative | | EXTERNAL | | | Proteins, | | | LAB | | | External | | | | | + + + + + + | UA RBC, | 2 | | EXTERNAL | | | External | | | LAB | | + + + + + + | UA Specific | 1.013 | | EXTERNAL | | | [place], | | | LAB | | | External | | | | | + + + + + + | UA | negative | | EXTERNAL | | | Leukocyte | | | LAB | | | Esterase, | | | | | | External | | | | | + + + + + + + +---------+ + + | Performing | Address | City/State/Zipcode | Phone Number | | Organization | | | | + +---------+ + + | EXTERNAL LAB | | | | + +---------+ + + External Lab: Iron Total (03/08/2019) + +-------+ + + + | Component | Value | Ref Range | Performed | Pathologist | | | | | At | Signature | + +-------+ + + + | Iron, | 33.55 | | EXTERNAL | | | External | | | LAB | | + +-------+ + + + + +---------+ + + | Performing | Address | City/State/Zipcode | Phone Number | | Organization | | | | + +---------+ + + | EXTERNAL LAB | | | | + +---------+ + + External Lab: Iron Saturation (03/08/2019) + +-------+ + + + | Component | Value | Ref Range | Performed | Pathologist | | | | | At | Signature | + +-------+ + + + | Iron | 6.5 | | EXTERNAL | | | Saturation, | | | LAB | | | External | | | | | + +-------+ + + + + +---------+ + + | Performing | Address | City/State/Zipcode | Phone Number | | Organization | | | | + +---------+ + + | EXTERNAL LAB | | | | + +---------+ + + External Lab: Iron Binding Capacity (03/08/2019) + +-------+ + + + | Component | Value | Ref Range | Performed | Pathologist | | | | | At | Signature | + +-------+ + + + | Iron | 514 | | EXTERNAL | | | Binding | | | LAB | | | Capacity, | | | | | | External | | | | | + +-------+ + + + + +---------+ + + | Performing | Address | City/State/Zipcode | Phone Number | | Organization | | | | + +---------+ + + | EXTERNAL LAB | | | | + +---------+ + + External Lab: Ferritin (03/08/2019) + +-------+ + + + | Component | Value | Ref Range | Performed | Pathologist | | | | | At | Signature | + +-------+ + + + | Ferritin, | 144.3 | | EXTERNAL | | | External | | | LAB | | + +-------+ + + + + +---------+ + + | Performing | Address | City/State/Zipcode | Phone Number | | Organization | | | | + +---------+ + + | EXTERNAL LAB | | | | + +---------+ + + External Lab: CBC (03/08/2019) + +-------+ + + + | Component | Value | Ref Range | Performed | Pathologist | | | | | At | Signature | + +-------+ + + + | WBC, | 7.6 | | EXTERNAL | | | External | | | LAB | | + +-------+ + + + | HGB, | 10.8 | | EXTERNAL | | | External | | | LAB | | + +-------+ + + + | HCT, | 34.4 | | EXTERNAL | | | External | | | LAB | | + +-------+ + + + | PLT, | 275 | | EXTERNAL | | | External | | | LAB | | + +-------+ + + + | RBC, | 3.98 | | EXTERNAL | | | External | | | LAB | | + +-------+ + + + | MCV, | 86 | | EXTERNAL | | | External | | | LAB | | + +-------+ + + + | RDW, | 17.3 | | EXTERNAL | | | External | | | LAB | | + +-------+ + + + + +---------+ + + | Performing | Address | City/State/Zipcode | Phone Number | | Organization | | | | + +---------+ + + | EXTERNAL LAB | | | | + +---------+ + + External Lab: eGFR (03/08/2019) + +-------+ + + + | Component | Value | Ref Range | Performed | Pathologist | | | | | At | Signature | + +-------+ + + + | eGFR, | 32 | | EXTERNAL | | | External [...] + +---------+ + + External Lab: Creatinine (03/08/2019) + +-------+ + + + | Component | Value | Ref Range | Performed | Pathologist | | | | | At | Signature | + +-------+ + + + | Creatinine, | 2.07 | | EXTERNAL | | | External [...]
--- OUTSIDE RECORDS SUMMARY | ~2020-03-04 | XMS | Encounter Summary ---
Demographics + + + | Address | [address] | | | [place] [address] | + + + | Home Phone [...] [place], [place] | | | | | [address] | | + + + + + Care Team Providers + +------+ + | Care Bull Wheel Worker Name | Role | Phone | [...] + + | 11/10/ | Telephone | [facility] | Jenny, | Other | | 2018 | | CARDIOLOGY [address] | Hansa PALLETISER OPERATOR [address] | | | | | [place], | [place], | | | | | [place] [address] | [place] [address] | | | | | [phone] | [phone] | | | | | | | [...] | | | [address] [facility] [facility] | | | | | | [address] [place] | | | | | | [address] | | | | | | | | +--------+ + + + + | 04/16/ | Office | Cardiology | Alin Anderson | | | 2019 | Visit | | MD [address] | | | | | | [address] | | | | | | [place] [address] | | | | | | [phone] | | | | | | | [...] [place] | | | | | | [address] | | | | | | | | +--------+ + + + + documented as of this encounter Visit Diagnoses Not on filedocumented in this encounter"
--- OUTSIDE RECORDS SUMMARY | ~2020-03-04 | XMS | Encounter Summary ---
Demographics + + + | Address | [address] | | | [place] [address] | + + + | Home Phone [...] + | [place] | ECON | [place], [place] | | | | | [address] | | + + + + + Care Team Providers + +------+ + | Care Neuropathologist Name | Role | Phone | + [...] Provider Unknown | | | | | [place], [place] | [phone] | | | | | [address] | (Fax) | | | | | [phone] | | | +--------+ + + + [...] [place] | | | | | | [address] | | | | | | | | +--------+ + + + + | 04/16/ | Office | Cardiology | Alin Anderson | | | 2019 | Visit | | MD Cheryl Arreguin | | | | | | [address] | | | | | | [place] [address] | | | | | | [phone] | | | | | | | [...] [place] | | | | | | [address] | | | | | | | [...]
--- OUTSIDE RECORDS SUMMARY | ~2020-03-04 | XMS | Encounter Summary ---
Demographics + + + | Address | [address] | | | [place] [address] | + + + | Home Phone [...] [place] | | | | | [address] | | + + + + + Care Team Providers + +------+ + | Care Outdoor Illuminating Engineer Name | Role | Phone | [...] [address] | | | | | [place], [place] | [address] [place], [place] | | | | | [address] | [address] | | | | | [phone] | | | +--------+ + + + [...] | | | | | [address] [facility] | | | | | | [address] [place] | | | | | | [address] | | | | | | | | +--------+ + + + + | 04/16/ | Office | Cardiology | Alin Anderson | | | 2019 | Visit | | MD Cheryl Arreguin | | | | | | [address] | | | | | | [place] [address] | | | | | | [phone] | | | | | | | [...] [place] | | | | | | [address] | | | | | | | [...] 1.013 | | EXTERNAL | | | [place], | | | LAB | | | [...]
--- OUTSIDE RECORDS SUMMARY | ~2020-03-04 | XMS | Encounter Summary ---
Demographics + + + | Address | [address] | | | [place] [address] | + + + | Home Phone [...] [place], [place] | | | | | [address] | | + + + + + Care Team Providers + +------+ + | Care Fur Comber Name | Role | Phone | + [...] + + | 09/25/ | Telephone | [facility] | Jenny | Blood Pressure Check | | 2017 | | CARDIOLOGY [address] | ADARSH [address] | (Screening) | | | | [place], | [place], | | | | | [place] [address] | [place] [address] | | | | | [phone] | [phone] | | | | | | | [...] echeck echocardiogram as planned. Electronically signed by: AADRSH Stevens 09/28/2017 9:02 elephone Encoun Cindy Moran [facility] - 09/25/2017 3:23 PM PSTFormatting of this [...] | | | | | [place] [address] | | | | | | [phone] | | | | | | | [...] [place] | | | | | | [address] | | | | | | | | +--------+ + + + + documented as of this encounter Visit Diagnoses Not on filedocumented in this encounter"
--- OUTSIDE RECORDS SUMMARY | ~2020-03-04 | XMS | Encounter Summary ---
Demographics + + + | Address | [address] | | | [place] [address] | + + + | Home Phone [...] [place], [place] | | | | | [address] | | + + + + + Care Team Providers + +------+ + | Care Backshoe Person Name | Role | Phone | + +------+ + PCP | Unavailable | + +------+ + Encounter Details +--------+---------+ + + + | Date | Type | Department | Care Team | Description | +--------+---------+ + + + | 04/27/ | Office | [facility] | Randy Figueroa, | Coronary artery | | 2018 | Visit | MED CTR CARDIAC | MD [address] | disease involving | | | | REHABILITATION [address] | [place], | [place] coronary | | | | [address] [place] | [place] [address] | artery of [place] | | | | [place] [address] | [phone] | heart without angina | | | | [phone] | | pectoris (Primary | | | [...] documented as of this encounter Progress Notes John Paul-Cheri Kendrick, DAIRY TESTER - 04/27/2018 11:00 AM PDT [facility] [address] [facility] [address] Cardiac Rehab Date: 04/27/2018 Patient Information Patient Name: Bob Will Date of : 1955 Age: 62 y.o. Encounter Diagnoses Code Name Primary? I25.10 Coronary artery disease involving [place] coronary artery of [place] heart without angina pectoris Yes Number of [...] note. Electronically signed by: Cheri Harvey RRT, 04/27/2018 13:10 Patient Name: Bob Will/: 1955/ document ed [...] | | | | | | W [facility] | | | | | | [address] | | | | | | [address] | | | | | | | | +--------+ + + + + | 04/16/ | Office | Cardiology | Alin Anderson | | 2019 | Visit | | MD Cheryl Arreguin | | | | | | [address] | | | | | | [place] [address] | | | | | | [phone] | | | | | | | | +--------+ + + + + | 04/16/ | Procedure | Cardiology | | | | 2019 | visit | | | | +--------+ + + + + | 04/25/ | Office | Cardiology | Rocio Pearl, | | | 2019 | Visit | | [address] | | | | | | [facility] [place] | | | | | | [address] | | | | | | | | +--------+ + + + + documented as of this encounter Visit Diagnoses + + | Diagnosis | + + | Coronary artery disease involving [place] coronary artery of [place] heart without | | angina pectoris - Primary | + + documented in this encounter"
--- OUTSIDE RECORDS SUMMARY | ~2020-03-04 | XMS | Encounter Summary ---
Demographics + + + | Address | [address] | | | [place] [address] | + + + | Home Phone [...] [place], [place] | | | | | [address] | | + + + + + Care Team Providers + +------+ + | Care Phytochemistry Professor Name | Role | Phone | [...] | CARDIOLOGY [address] | MD [address] | | | | | [place], | [place], | | | | | [place] [address] | [place] [address] | | | | | [phone] | [phone] | | | | | | | [...] | | | | | [facility] | | | | | | [address] [place] | | | | | | [address] | | | | | | | | +--------+ + + + + | 04/16/ | Office | Cardiology | Alin Anderson | | | 2019 | Visit | | MD Cheryl Arreguin | | | | | | [address] | | | | | | [place] [address] | | | | | | [phone] | | | | | | | [...] [place] | | | | | | [address] | | | | | | | | +--------+ + + + + documented as of this encounter Visit Diagnoses Not on filedocumented in this encounter"
--- OUTSIDE RECORDS SUMMARY | ~2020-03-04 | XMS | Encounter Summary ---
Demographics + + + | Address | [address] | | | [place] [address] | + + + | Home Phone [...] [place], [place] | | | | | [address] | | + + + + + Care Team Providers + +------+ + | Care Repairer Welding Equipment Name | Role | Phone | + [...] | | involving | [address] | [place] | | | | | [place] | [place] | [place] | | | | | coronary | [address] | [address] | | | | | artery of | Phone: | Phone: | | | | | [place] heart | [phone] | [phone] | | | | | without | Fax: | Fax: | | | | | angina | [phone] | [phone] | | | | | pectoris | | | +--------+ + + + + + Encounter Details +--------+---------+ + + + | Date | Type | Department | Care Team | Description | +--------+---------+ + + + | 11/25/ | Office | [facility] | Randy Figueroa, | Coronary artery | | 2019 | Visit | MED CTR CARDIAC | MD [address] | disease involving | | | | REHABILITATION [address] | [place], | [place] coronary | | | | [address] [place] | [place] [address] | artery of [place] | | | | [place] [address] | [phone] | heart without angina | | | | [phone] | | pectoris (Primary | | | [...] as of this encounter Progress Cheri Mchugh, MANAGER RECRUITING - 11/25/2018 10:00 AM PDT [facility]ATION [address] [place] [address] Cardiac Rehab Date: 11/25/2018 Patient Information Patient [...] by Cheri Harvey RRT at 11/25/2018 12:48 PM PDTdocumented in this en counter Plan of Treatment +--------+ + + + + | Date | Type | Specialty | Care Team | Description | +--------+ + + + + | 03/12/ | Office | Nephrology | [place], | | | 2019 | Visit | | [address] | | | | | | [address] [facility] | | | | | | [address] [place] | | | | | | [address] | | | | | | | | +--------+ + + + + | 04/16/ | Office | Cardiology | Alin Anderson | | | 2019 | Visit | | MD Cheryl Arreguin | | | | | | [address] | | | | | | [place] [address] | | | | | | [phone] | | | | | | | [...] [place] | | | | | | [address] | | | | | | | | +--------+ + + + + documented as of this encounter Visit Diagnoses + + | Diagnosis | + + | Coronary artery disease involving [place] coronary artery of [place] heart without | | angina pectoris - Primary | + + | Post PTCA Postsurgical percutaneous transluminal coronary angioplasty status | + + documented in this encounter"
--- OUTSIDE RECORDS SUMMARY | ~2020-03-04 | XMS | Encounter Summary ---
Demographics + + + | Address | [address] | | | [place] [address] | + + + | Home Phone [...] [place], [place] | | | | | [address] | | + + + + + Care Team Providers + +------+ + | Care Paint Spray Tender Name | Role | Phone | [...] | apnea, | [address] | [place] | | | | | unspecified | [address] [place] | [place], | | | | | type | [place], [place] | [place] [address] | | | | | Procedures | [address] | Phone: | | | | | [place] POL[place] | Phone: | [phone] | | | | | 6/>YRS SLEEP | [phone] | Fax: | | | | | W/CPAP 4/> | Fax: | [phone] | | | | | ADDL [place]ATER[place] | [phone] | | | | | | [place] | | | | | | [...] + + | 03/03/ | Hospital | [facility] | Sofie Sneed MD | Sleep apnea, | | 2018 - | Encounter | MED CTR SLEEP | [address] | unspecified type | | | | CENTER [address] | [place] | | | 03/04/ | | [place] | [address] | | | 2017 | | [address] | | | | | | [phone] | | | +--------+ + + + [...] 0 | | | | (VITAMIN D-3) [address] | mouth Once a week. | | [...] documented as of this encounter Procedure Notes Sofie Sneed MD - 03/07/2018 4:35 PM PDTAssociated Order(s): SLEEP STUDY DIAGNOSTIC ONLY NO PAPPre-Procedure Diagnose(s): LOUISA (obstructive sleep apnea)Post-Procedure Diag nose(s): LOUISA (obstructive sleep apnea); Nocturnal hypoxemia [facility] [place] [address] Polysomnogram Report on Bob Will performed on March 03 2800 PATIENT IDENTIFICATION: Bob Will IS a 62 y.o..-year-old male. with a history of coronary artery disease post recent anterior wall CT, post PTCA and stents on 03/15/17, cardiac shock, recent status post stents, cardiomyopathy, atrial flutter, GERD, chronic knee pain, And neuropathy?, pre senting for evaluation of sleep apnea. BMI: 31.5 Technical Information: Please see technical data which is attached. Definitions (The AASM Manual for the Scoring of Sleep and Associated Events, Version 2.4; 2 017): Apnea: There is a drop in the peak signal excursion by 90% or greater of pre-event baselin e using an oronasal thermal sensor (diagnostic study), PAP device flow (titration study), or an alternative apnea sensor (diagnostic study); the duration of the 90% or greater drop in sensor signal is 10 seconds or longer. Obstructive Apnea: Event associated with continued or increased inspiratory effort throug hout the entire period of absent airflow. Central Apnea: Event associated with absent inspiratory effort throughout the entire maggy od of absent airflow. Mixed Apnea: Event associated with absent inspiratory effort in the initial portion of th e event followed by resumption of inspiratory effort during the second portion of the event. Hypopnea: Nasal pressure excursion drop by 30% or more from baseline, lasting at lease 10 seconds and 90% of the event's duration meets this amplitude criteria. This is associated wi th a 4% or greater desaturation from pre-baseline Respiratory Event Related Arousal: A sequence of breaths lasting 10 seconds or longer jorje acterized by increasing respiratory effort or by flattening of the inspiratory portion of th e nasal pressure (diagnostic study) or PAP device flow (titration study) waveform leading to arousal from sleep when the sequence of breaths does not meet criteria for an apnea or hypo pnea. REVELANT MEDICATIONS: Tramadol, hydrocodonehypopnea acetaminophen, gabapentin. SUBJECTIVE: The patient rated sleep quality during sleep study as better. Hide Selector note: patient tried medium dreamwear nasal mask and medium airfit p10 nasal pill ows and preferred nasal pillows. SLEEP ARCHITECTURE AND EEG: ? Total sleep time was 499 minutes. Sleep efficiency was 80.7% and was decreased. ? Sleep onset latency was 0.5 minutes and was decreased. ? REM latency was 187.5 minutes and was increased. ? Percent of time in stage N3 was 0%. ? Percent of time in stage REM was 0.9 % and was decreased. ? Arousal Index for this diagnostic study was 10.7/hour and waswithin normal limits, with 2 .3 respiratory arousals/hour and 8.4 spontaneous arousals/hour. RESPIRATORY: ? Respiratory disturbance index (RDI) was 7.5, consisting of total 52 hypopneas, 4 obstruct marilu apneas, 0 mixed apneas, and 6 central apneas and 0 RERAs. AHI was 7.5 and mildly elevate d. ? Sleep disordered breathing was worsened in supine position with supine AHI of 13.4. Pat ient spent 41.3% of total sleep time in supine position. Nonsupine AHI was 3.3. ? Sleep disordered breathing was worsened in REM sleep with REM AHI of 40. Non-REM AHI was 7.2. ? Mean SpO2 was 89 %, marilee SpO2 was 77%, and amount of total sleep time spent below SpO2 o f 89% was 187.7 minutes. 4% Oxygen Desaturation Index (HOMERO) was 13.5 and was mildly elevated . ? Snoring was moderate. ? ETCO2 was not elevated. ? Fritz-Ulrich breathing was not observed. LIMB MOVEMENTS: ? Total sleep periodic limb movement index was [...] case of residual hypoxemia. 2. Weight management. Sofie Sneed MD Portions of this chart may have been created with [employer] voice recognition software. Occasi onal wrong-word or sound-alike substitutions may have occurred due to the inherent canseco itations of voice recognition software. Please read the chart carefully and recognize, using context, where these substitutions have occurred. documented in this enco unter Plan of [...] [place] | | | | | | [address] | | | | | | | | +--------+ + + + + | 04/16/ | Office | Cardiology | Alin Anderson | | | 2019 | Visit | | MD Cheryl Arreguin | | | | | | [address] | | | | | | [place] [address] | | | | | | [phone] | | | | | | | | +--------+ + + + + | 04/16/ | Procedure | Cardiology | | | | 2019 | visit | | | | +--------+ + + + + | 04/25/ | Office | Cardiology | Rocio Pearl | | | 2019 | Visit | [address] | | | | | | [place] | | | | | | [address] | | | | | | | [...] | DIAGNOSTIC ONLY NO | e | 4:35 PM | | procedure are in the | | PAP | | PDT | | results section. | + +--------+ + + + documented in this encounter Results Sleep study diagnostic only (no PAP) (03/07/2018 4:35 PM PDT) + + + | Narrative | Performed At | + + + | Sofie Sneed | | | 03/07/2018 16:57 [facility] | | | [place] [address] Polysomnogram | | | Report on Bob Will performed on March 03 2800 PATIENT | | | IDENTIFICATION: Bob Will IS a 62 y.o..-year-old male. with | | | a history of coronary artery disease post recent anterior wall CT, | | | post PTCA and stents on 03/15/17, cardiac shock, recent status post | | | stents, cardiomyopathy, atrial flutter, GERD, chronic knee pain, | | | And neuropathy?, presenting for evaluation of sleep apnea. BMI: 31.5 | | | Technical Information: Please see technical data which is attached. | | | Definitions (The AASM Manual for the Scoring of Sleep and Associated | | | Events, Version 2.4; 2017): Apnea: There is a drop in the peak signal | | | excursion by 90% or greater of pre-event baseline using an oronasal | | | thermal sensor (diagnostic study), PAP device flow (titration study), | | | or an alternative apnea sensor (diagnostic study); the duration of the | | | 90% or greater drop in sensor signal is 10 seconds or longer. | | | Obstructive Apnea: Event associated with continued or increased | | | inspiratory effort throughout the entire period of absent airflow. | | | Central Apnea: Event associated with absent inspiratory effort | | | throughout the entire period of absent airflow. Mixed Apnea: Event | | | associated with absent inspiratory effort in the initial portion of | | | the event followed by resumption of inspiratory effort during the | | | second portion of the event. Hypopnea: Nasal pressure excursion drop | | | by 30% or more from baseline, lasting at lease 10 seconds and 90% of | | | the event's duration meets this amplitude criteria. This is associated | | | with a 4% or greater desaturation from pre-baseline Respiratory | | | Event Related Arousal: A sequence of breaths lasting 10 seconds or | | | longer characterized by increasing respiratory effort or by flattening | | | of the inspiratory portion of the nasal pressure (diagnostic study) | | | or PAP device flow (titration study) waveform leading to arousal from | | | sleep when the sequence of breaths does not meet criteria for an apnea | | | or hypopnea. REVELANT MEDICATIONS: Tramadol, hydrocodonehypopnea | | | acetaminophen, gabapentin. SUBJECTIVE:The patient rated sleep quality | | | during sleep study as better. Hide Selector note: patient tried medium | | | dreamwear nasal mask and medium airfit p10 nasal pillows and preferred | | | nasal pillows. SLEEP ARCHITECTURE AND EEG:? Total sleep time was 499 | | | minutes. Sleep efficiency was 80.7% and was decreased.? Sleep onset | | | latency was 0.5 minutes and was decreased.? REM latency was 187.5 | | | minutes and was increased.? Percent of time in stage N3 was 0%.? | | | Percent of time in stage REM was 0.9 % and was decreased.? Arousal | | | Index for this diagnostic study was 10.7/hour and waswithin normal | | | limits, with 2.3 respiratory arousals/hour and 8.4 spontaneous | | | arousals/hour. RESPIRATORY:? Respiratory disturbance index (RDI) was | | | 7.5, consisting of total 52 hypopneas, 4 obstructive apneas, 0 mixed | | | apneas, and 6 central apneas and 0 RERAs. AHI was 7.5 and mildly | | | elevated.? Sleep disordered breathing was worsened in supine | | | position with supine AHI of 13.4. Patient spent 41.3% of total sleep | | | time in supine position. Nonsupine AHI was 3.3. ? Sleep disordered | | | breathing was worsened in REM sleep with REM AHI of 40. Non-REM AHI | | | was 7.2. ? Mean SpO2 was 89 %, marilee SpO2 was 77%, and amount of total | | | sleep time spent below SpO2 of 89% was 187.7 minutes. 4% Oxygen | | | Desaturation Index (HOMERO) was 13.5 and was mildly elevated.? Snoring | | | was moderate.? ETCO2 was not elevated.? Fritz-Ulrich breathing was | | | not observed. LIMB MOVEMENTS:? Total sleep periodic limb movement | | | index was 0 and was not increased. EKG:Normal sinus rhythm was noted | | | with mean heart rate of 66, 62, 67 beats per minute in wake, non-REM, | | | and REM sleep respectively.. INTERPRETATION: - This polysomnography | | | showed sleep apnea which was obstructive in nature, and it was mild in | | | frequency of events, and mild in frequency of desaturations. Sleep | | | apnea was worsened in supine position and in stage R sleep. There was | | | 41.3% Supine sleep, but only 0.9% stage R sleep was captured. Mean | | | SpO2 was 89 %, marilee SpO2 was 77%, and amount of total sleep time | | | spent below SpO2 of 89% was 187.7 minutes. There were several | | | numbers of obstructive hypopnea is associated with a 3% oxygen | | | saturation, and amount the required 4% oxygen desaturation. However, | | | there were also periods of low SPO2 at 88-89% and absence of obvious | | | obstructive events. - Sleep efficiency was mildly decreased, and sleep | | | was minimally fragmented. - Excessive leg movements was not | | | observed. RECOMMENDATIONS:1. A separate PAP titration study. | | | Otherwise, auto- CPAP at 5-15 cm H2O can be started followed by an | | | overnight oximetry on CPAP and room air, and to proceed with a | | | separate titration study in case of residual hypoxemia.2. Weight | | | management. Sofie Sneed MD Portions of this chart may have been | | | created with [employer] voice recognition software. Occasional wrong-word | | | or | | | | | | [...] this chart may have been created with [employer] voice | | |recognition software. Occasional wrong-word [...] + | Sofie Sneed MD - 03/07/2018 4:35 PM PDT [facility] | | [place], [place] [id number] Report on Bob Chaudhary | | Suman performed on March 03 2800PATIENT IDENTIFICATION:Bob Will IS a 62 | | y.o..-year-old male. with a history of coronary artery disease post recent anterior wall | | CT, post PTCA and stents on 03/15/17, cardiac [...] during sleep study as better. | | Hide Selector note: patient tried medium dreamwear nasal mask [...] may have been | | created with [employer] voice recognition software. Occasional wrong-word or | [...] this chart may have been created with [employer] voice recognition software. Occasi onal wrong-word or sound-alike substitutions may have occurred due to the inherent canseco itations of voice recognition software. | |Please read the chart carefully and recognize, using context, where these substitutions hav e occurred. | + + documented in this encounter Visit Diagnoses + + | Diagnosis | + + | Sleep apnea, unspecified type | + + documented in this encounter"
--- OUTSIDE RECORDS SUMMARY | ~2020-03-04 | XMS | Encounter Summary ---
Demographics + + + | Address | [address] | | | [place] [address] | + + + | Home Phone | | + + + | Preferred Language | Unknown | + + + | Marital Status | | + + + | Quaker Affiliation | NRP | + + + | Race | White | + + + | Ethnic Group | Not or | + + + Author + + + | Author | [facility] | + + + | Organization | [facility] | + + + | Address | Unknown | + + + | Phone | Unavailable | + + + Support + + + + + | Name | Relationship | Address | Phone | + + + + + | Venice Mckeon | ECON | [address] | | | | | [place] [address] | | + + + + + Care Team Providers + +------+ + | Care Background Investigator Name | Role | Phone | + [...] | | | | | involving | [place], [place] | | | | | | left main | [address] | | | | | | coronary | Phone: | | | | | | artery (HCC) | [phone] | | | | | | Procedures | Fax: | | | | | | | [phone] | | | | | | OCCUPATIONAL [...] | | | | elevation | [address] [facility] | | | | | | myocardial | [address] | | | | | | infarction | Rd | | | | | | involving | [place], [place] | | | | | | left main | [address] | | | | | | coronary | Phone: | | | | | | artery (HCC) | [phone] | | | | | | Procedures | Fax: | | | | | | PHYSICAL | [phone] | | | | | | THERAPY [...] REHAB - [facility] | ANTHON[address] | [address] | | | | | | [address] | [place]onna [place], | | | | | | [place], [place] | [place] [address] | | | | | | [address] | Phone: | | | | | | Phone: | [phone] | | | | | | [phone] | Fax: | | | | | | Fax: | [phone] | | | | | | [phone] | | +--------+--------+ + + + + [...] + + | 03/15/ | Hospital | [facility] [address] | Mellisa Haji, | | | 2017 - | Encounter | [id number] | [address] | | | | | [facility] | [facility] [address] | | | 04/02/ | | [place], [place] | [place], [place] | | | 2016 | | [address] | [address] | | | | | [phone] | [phone] | | | | | | | | | | | | Rolly Reeves, | | | | | | [address] | | | | | | [place], [place] | | | | | | [address] | | | | | | [phone] | | | | | | | | | | | | Terry Ochoa MD | | | | | | Monika Cooper, | | | | | | Rehana Downey MD,MPH [address] | | | | | | [address] [facility] | | | | | | Rd [place], [place] | | | | | | [address] | | | | | | [phone] | | | | | | | | | | | | Ariana Bose, | | | | | | DO [address] | | | | | | [facility] | | | | | | [place], [place] | | | | | | [address] | | | | | | [phone] | | | | | | | | | | | | Aria Rojas MD | | | | | | [address] | | | | | | Tabitha Alicea [place], | | | | | | [place] [address] | | | | | | [phone] | | | | | | | [...] PM PDT CLINICAL HOSPITALIST DISCHARGE SUMMARY [facility] Discharging Provider: Aria Rojas MD [...] follow up ludmila miller with a local wire weaver in [place]. #Acute cardiogenic shock in the setting ofSTEMI [...] 44 to 32 during first day at [facility] , with addition decline to [...] (noted on o utside records). Patient on Paron 10/325 q8 as outpatient. Was receiving scheduled [...] Fax Number [facility] Yes [address] [place] [address] Medina Roger RN 04/02/2017 11:31 Medina Roger RN, 04/02/2017 11:28 AM: Spoke with Latricia, 7 day auth # [id number] has been provided. Contacted Tanisha at facility [phone], arranging anticipated medicaid transport by stretcher at 2 pm today. Spoke with patient and souse concerning dc; they are both in agreement. Medina Roger, RN, 04/02/2017 9:20 AM: Contacted Latriciabettina Landry [phone] referencing auth# for SNF placement. Medina Roger RN, 04/01/2017 11:42 AM: Spoke with Malathi [phone], at facility admissions. Patient is accepted to facility. Prov ided information for information foot setter with [facility] Latricia Landry [phone], Tanisha w ill pursue auth and get back to me. F&MS working with patient and family to add Medicaid ser vices to benefits. When added patient will have travel benefit. CM contacted Shahab Holman re [employer]. Tamia Van, RN, 03/30/2017 1:21 PM: Received VM from Emily Terrell CM with [facility] to send referral to this location . Referral made, awaiting response. Follow Up: Schedule the following appointment(s) when you get home Follow up with [facility] . Specialties: Detention Facility, Intermediate Care Facility Contact information [address] [place] [address] Follow up with LAUREN CHESTER MD. Go on 04/07/2017. Specialty: Cardiology Why: at 8:30 AM to establish Cardiology follow up Contact information [facility] [address] [address] Aria Rojas MD Division of Hospital Medicine Pending Sale To [facility] I spent 60 minutes on discharge activities [...] ch ronic pain who was transferred to [facility] on 03/15 s/p STEMI with cardiogenic [...] will need Life Vest follow up with wire weaver in [place] on discharge - appr eciate cardiology assistance [...] hematoma, but possibly some candidal infection/intertrigo. On Paron 10/325 Q8H as an outp atient. -Continue [...] 44 to 32 during first day at [facility], with addition decline to 24 [...] Aria Rojas MD Division of Hospital Medicine Pending Sale To [facility] Pager [phone] I spent 36 minutes on the patient [...] ch ronic pain who was transferred to [facility] on 03/15 s/p STEMI with cardiogenic [...] will need Life Vest follow up with wire weaver in [place] on discharge - appr iate cardiology assistance [...] hematoma, but possibly some candidal infection/interrigo. On Paron Q8H as an outpa tient. -Continue nystatin [...] discharge. -CM looking for skilled placement in [place] near patient's home; appreciate assistance At risk for malnutrition Very little PO intake but reportedly improving. Previously had dobhoff feeding tube in the CVICU.Nutrition assistance appreciated. -Calorie count ongoing -Encouraging PO intake Normocytic anemia Hct dropped abruptly from 44 to 32 during first day at [facility], with addition decline to 24 [...] Aria Rojas MD Division of Hospital Medicine Pending Sale To [facility] Pager [phone] I spent 36 minutes on the patient encounter today, >50% in counseling of the patient's on the above plan of care and in coordination of care on the arizmendi with nursing and Heart [facility]. Ariana Ivy DO - 03/30/2017 5:49 PM PDT CLINICAL HOSPITALIST SERVICE PROGRESS NOTE PATIENT'S NAME/MRN: Ron Mckeon/[id number] HOSPITAL DAY: #15 24-HOUR EVENTS & SUBJECTIVE: -patient complained of typical anginal chest pain and had STEMI code last night, anterior S T elevation on serial EKGs, given 325mg ASA, started on heparin drip (had been turned off fo r JAVON thrombus yesterday afternoon with warfarin therapeutic), patient went to the laborer poultry hatchery -on angiography, interventionalists noted "patent stent traversing [...] daily - Patient will follow up with wire weaver in [place] on discharge; appreciate cardiolo adriana assistance with [...] stenosis (noted on o utside records, on Paron q8 as outpatient) Improved today -continue oxycodone [...] 44 to 32 during first day at [facility] , with addition decline to [...] Barriers for DC: delivery/approval of lifevest, [facility] bed Ariana Bose DO Resort Managerbowling or skating front desk clerk Clinical Hospitalist and Medicine Teaching Service Division of Hospital Medicine Pending Sale To [facility] Pager [phone] [facility] DEPARTMENT: Hosp- [phone] Place of Service: - Date of Service: 03/26/2017 CSN: [id number] Modifiers:GC Resident Involved: Yes Suggested CPT: 94651 Subsequent Visit Detailed/High complexity 35 min Cristi [...] given continued elevated Tn, patient's significant recent TX, we activated the laborer poultry hatchery. Patient received 325 mg ASA at bedside and was briefly on heparin which has since been disc ontinued. Per cardiology will continue daily 81 mg ASA, plavix and warfarin. Continue to t rend troponins as well. I spent 30 minutes with this patient with >50% of the time evaluating patient at [facility] on numerous occasions, evaluating studies and coordinating care w/ cardiology.Electronical ly signed by Ivette Chaudhry MD at 03/30/2017 6:24 AM Gerson Oseguera MD - 03/30/2017 4:31 AM PDTCardiology Preliminary Procedure Note (Full report to follow) Primary Care Provider: Jamal Guerrero MD Referring Provider: No Referring Provider Per Patient Orthophoto Tech/Draftsman Staff: Katarina Ngo M.D. Procedure(s): Coronary Angiography [...] Complications: None Hemostasis: Manual compression in laborer poultry hatchery. Site: [facility] Recommendations: Patient Status: Inpatient Usual post cath care. Ariana Ivy D O - 03/29/2017 9:30 AM PDT CLINICAL HOSPITALIST SERVICE PROGRESS NOTE PATIENT'S NAME/MRN: Ron Mckeon/[id number] HOSPITAL DAY: #14 24-HOUR EVENTS & SUBJECTIVE: [...] stenosis (noted on o utside records, on Paron 10 q8 as outpatient) -continue oxycodone 10mg [...] 44 to 32 during first day at [facility] , with addition decline to [...] arm, midline left arm Ariana Bose DO Resort Managerbowling or skating front desk clerk Clinical Hospitalist and Medicine Teaching Service Division of Hospital Medicine Pending Sale To [facility] Pager [phone] [facility] DEPARTMENT: Hosp- [phone] Place of Service: IP - [id number] Date of Service: 03/26/2017 CSN: [id number] Modifiers:GC Resident Involved: Yes Suggested CPT: 45933 Subsequent Visit Detailed/High complexity 35 min Ariana Ivy DO - 03/28/2017 8: 06 AM PDT CLINICAL HOSPITALIST SERVICE PROGRESS NOTE PATIENT'S NAME/MRN: Ron Mckeon/[id number] HOSPITAL DAY: #13 24-HOUR EVENTS & SUBJECTIVE: [...] stenosis (noted on o utside records, on Paron q8 as outpatient) Improving L groin pain [...] 44 to 32 during first day at [facility] , with addition decline to [...] arm, midline left arm Ariana Bose DO Resort Managerbowling or skating front desk clerk Clinical Hospitalist and Medicine Teaching Service Division of Hospital Medicine Pending Sale To [facility] Pager [phone] [facility] DEPARTMENT: Hosp- [phone] Place of Service: - Date of Service: 03/26/2017 CSN: [id number] Modifiers:GC Resident Involved: Yes Suggested CPT: 33998 Subsequent Visit Detailed/High complexity 35 min Ariana [...] 44 to 32 during first day at [facility] , with addition decline to [...] arm, midline left arm Ariana Bose DO Resort Managerbowling or skating front desk clerk Clinical Hospitalist and Medicine Teaching Service Division of Hospital Medicine Pending Sale To [facility] Pager [phone] [facility] DEPARTMENT: Hosp- [phone] Place of Service: - Date of Service: 03/26/2017 CSN: [id number] Modifiers:GC Resident Involved: Yes Suggested CPT: 82462 Subsequent Visit Detailed/High complexity 35 min Chapis [...] 44 to 32 during first day at [facility] , with addition decline to [...] arm, midline left arm Ariana Bose DO Resort Managerbowling or skating front desk clerk Clinical Hospitalist and Medicine Teaching Service Division of Hospital Medicine [facility] Pager [phone] [facility] DEPARTMENT: Hosp- [phone] Place of Service: - Date of Service: 03/26/2017 CSN: [id number] Modifiers:GC Resident Involved: Yes Suggested CPT: 83722 Subsequent Visit Detailed/High complexity 35 min Wan Cano MD - 03/25/2017 3:07 PM PDT . Cardiovascular Intensive Care Unit Attending Progress Note CVICU D2 Assigned #[id number] ICU Admission Reason Most Recent Value ICU [...] ANY X2 placed in outs surinder laborer poultry hatchery along with IABP. Arrived in cardiogenic shock, [...] Pager Mellisa Haji MD Admitting Provider Cardiology 04999 Zelalem Del Toro MD ICU PM Attending Anesthesiology 66500 Code Status Code Status Full Code The Advanced Care Note for this patient can be found under the notes tab in chart review. Quality section Reardon necessity reviewed: Hourly/Accurate measurement of urinary output for clinical manage ment of critically ill patients Wan Deleon MD, JOHN, ERVIN Cardiovascular Intensive Care Unit [address] [place], [place] [address] I have spent a total of 38 [...] xceptions/additions as noted. Date of Service: 03/25/2017 [facility] DEPARTMENT: ANE ICU CARDIAC Place of Service:- Inpatient CSN: [id number] Suggested Modifier: GC - Resident Involved Suggested CPT: TO JOINT MAKER MACHINE Bill Roche, Pal neely - 03/24/2017 10:54 AM PDT Cardiovascular Intensive Care Unit Team Progress Note CVICU D2 Assigned #[id number] ICU Admission Reason Most Recent Value ICU [...] ANY X2 placed in outs surinder lab[employer] poultry [employer]y along with IABP. Arrived in cardiogenic shock, [...] Plan Patient went into VFib during laborer poultry hatchery procedure at [facility]. 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 -secretions improving, cough strong -s/p 7 days [...] Pager Mellisa Haji MD Admitting Provider Cardiology 30755 Zelalem Del Toro MD ICU PM Attending Anesthesiology 85568 The Advanced Care Note for this patient [...] Alvarado MD Author:Jose Ramon Alvarado MD [address] [address]Huqlvgqabgbwwq signed by Jose Ramon Alvarado Md at 03/24/2017 11:00 AM Wan Cano MD - 03/24/2017 9:47 AM PDTFormatting of this note might be differe nt from the original. Cardiovascular Intensive Care Unit Attending Progress Note CVICU D2 Assigned #[id number] ICU Admission Reason Most Recent Value ICU [...] ANY X2 placed in outs surinder [employer] along with IABP. Arrived in cardiogenic shock, [...] Pager Mellisa Haji MD Admitting Provider Cardiology 57577 Zelalem Del Toro MD ICU PM Attending Anesthesiology 76307 Code Status Code Status Full Code The Advanced Care Note for this patient can be found under the notes tab in chart review. Quality section Reardon necessity reviewed: Hourly/Accurate measurement of urinary output for clinical manage ment of critically ill patients Wan Deleon MD, JOHN, ERVIN Cardiovascular Intensive Care Unit [facility] [place] [address] I have spent a total of 42 [...] xceptions/additions as noted. Date of Service: 03/24/2017 [facility] DEPARTMENT: [facility] ICU CARDIAC Place of Service:- Inpatient CSN: [id number] Suggested Modifier: GC - Resident Involved Suggested CPT: TO JOINT MAKER MACHINE Author:Wan Deleon Md, [address] [address]Evwnxzjnafsunz signed by Wan Deleon MD at 03/24/2017 9:49 AM Tamia De La Paz PA-C - 03/23/2017 11:54 PM PDTFormatting of this note might be diff erent from the original. Cardiovascular Intensive Care Unit Clinical Update Note Team: D2 Team Pager: [phone] Attending: Katey Pt Name: Ron Mckeon ID: [...] ANY X2 placed in outs surinder lab[employer] poultry [employer] along with IABP. Arrived in cardiogenic shock, [...] Unit Team Progress Note CVICU D2 Assigned #[id number] ICU Admission Reason Most Recent Value ICU [...] ANY X2 placed in outs surinder lab[employer] poultry [employer] along with IABP. Arrived in cardiogenic shock, [...] Plan Patient went into VFib during laborer poultry hatchery procedure at [facility]. 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 -fevering nightly, cultures negative, WBC stable -secretions [...] Pager Mellisa Haji MD Admitting Provider Cardiology 79639 The Advanced Care Note for this patient [...] Alvarado MD Author:Jose Ramon Alvarado MD [address] [id number] signed by Jose Ramon Alvarado Md at 03/23/2017 11:41 AM PDTWan Deleon MD - 03/23/2017 9:51 AM PDTFormatting of this note might be differe nt from the original. Cardiovascular Intensive Care Unit Attending Progress Note CVICU D2 Assigned #[id number] ICU Admission Reason Most Recent Value ICU [...] ANY X2 placed in outs surinder [employer] poultry [employer]y along with IABP. Arrived in cardiogenic shock, [...] Pager Mellisa Haji MD Admitting Provider Cardiology 08231 Code Status Code Status Full Code The Advanced Care Note for this patient can be found under the notes tab in chart review. Quality section A-Line necessity reviewed: Plan to DC today Reardon necessity reviewed: Hourly/Accurate measurement of urinary output for clinical manage ment of critically ill patients Currently at risk for: delirium, stroke, TX, arrythmia, tamponade, PE, respiratory failure, ARDS, aspiration, AYLIN / ARF, coagulopathy, DVT, stress ulcers, sepsis, BONIFACIO, electrolyte per turbations, malnutrition, deconditioning and decubiti. Wan Deleon MD, JOHN, ERVIN Cardiovascular Intensive Care Unit [facility] [place] [address] I have spent a total of 44 [...] xceptions/additions as noted. Date of Service: 03/23/2017 [facility] DEPARTMENT: [facility] ICU CARDIAC Place of Service:- Inpatient CSN: [id number] Suggested Modifier: GC - Resident Involved Suggested CPT: TO JOINT MAKER MACHINE Tamia De La Paz PA-C - 03/22/2017 7:58 PM PDT . Cardiovascular Intensive Care Unit Clinical Update Note Team: D2 Team Pager: [phone] Attending: Abdulaziz Merrill Name: Ron Mckeon ID: [...] Unit Attending Progress Note CVICU D2 Assigned #[id number] ICU Admission Reason Most Recent Value ICU [...] long tobacco abuse history, presenting with acute TX and STEMI, resu ltant cardiogenic shock refractory [...] Pager Mellisa Haji MD Admitting Provider Cardiology 80320 Code Status Code Status Full Code Quality section A-Line necessity reviewed: Dwxk-qt-rbxp blood pressure monitoring Reardon necessity reviewed: Hourly/Accurate [...] of Service: 03/22/2017 Author:Anurag Ashby MD [address] [address]Oafuqkeqrsullz signed by Anurag Ashby MD at 03/22/2017 11:07 AM P Macho Sellers MD - 03/22/2017 11:00 AM PDT Cardiovascular Intensive Care Unit Team Progress Note CVICU D2 Assigned #[id number] ICU Admission Reason Most Recent Value ICU [...] Plan Patient went into VFib during laborer poultry hatchery procedure at [facility]. 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 -vanc zosyn stopped 03/17 -fever 38.3 last [...] Pager Mellisa Haji MD Admitting Provider Cardiology 90085 This patient does not have an Advanced Care Note for this Admission. Please use the Goal of care section of your ICU navigator to document the advanced care discussion. Quality section A-Line necessity reviewed: Qkfy-pl-bmvi blood pressure monitoring Reardon necessity reviewed: Hourly/Accurate measurement of urinary output for clinical manage ment of critically ill patients FAST HUG Feeding: Tube Feeds: Replete @ 55 mL/hr Analgesia: APAP, hydromorphone PRN Sedation: N/A Thromboprophylaxis: Heparin infusion Head of Bed: Head of Bed >30 degrees Ulcer Prophylaxis: Famotidine Glycemic Control: insulin infusion Created by Macho Gaytan MD Author:Macho Gaytan MD [address] [address]Rexverqyzpunws signed by Macho Gaytan MD at 03/23/2017 12:35 PM PDTT Tamia leon PA-C - 03/21/2017 7:02 PM PDTFormatting of this note might be different f rom the original. Cardiovascular Intensive Care Unit Clinical Update Note Team: D2 Team Pager: [phone] Attending: Abdulaziz Merrill Name: Ron Mckeon ID: [...] Opens eyes, nods head. Follows commands for custom seamstress and Plan: Hospital Problems Priority POA Head/Neck [...] Unit Team Progress Note CVICU D2 Assigned #[id number] ICU Admission Reason Most Recent Value ICU [...] Plan Patient went into VFib during laborer poultry hatchery procedure at [facility]. 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 -vanc zosyn stopped 03/17 -fever 38.3 last [...] Pager Mellisa Haji MD Admitting Provider Cardiology 63913 This patient does not have an Advanced Care Note for this Admission. Please use the Goal of care section of your ICU navigator to document the advanced care discussion. Quality section A-Line necessity reviewed: Gtqg-ex-fkmt blood pressure monitoring CVC necessity reviewed: Hemodynamic [...] Macho Gaytan MD Author:Macho Gaytan MD [address] [address]Hrvkelmfrmmppn signed by Macho Gaytan MD at 03/21/2017 1:43 PM Anurag Paredes MD - 03/21/2017 12:22 PM PDT Cardiovascular Intensive Care Unit Attending Progress Note CVICU D2 Assigned #[id number] ICU Admission Reason Most Recent Value ICU [...] long tobacco abuse history, presenting with acute TX and STEMI, resu ltant cardiogenic shock refractory [...] Pager Mellisa Haji MD Admitting Provider Cardiology 69144 Code Status Code Status Full Code Quality section A-Line necessity reviewed: Dkdn-bb-mxaw blood pressure monitoring CVC necessity reviewed: Plan [...] Date of Service: 03/21/2017 Author:Anurag Ashby MD [place] [address] [place] [address]Rreetbtwyndcku signed by Anurag Ashby MD at 03/21/2017 12:22 PM P Almas Roche, Jose Ramon - 03/20/2017 12:36 PM PDTFormatting of this note might be different f rom the original. Cardiovascular Intensive Care Unit Team Progress Note CVICU D2 Assigned #[id number] ICU Admission Reason Most Recent Value ICU [...] Plan Patient went into VFib during laborer poultry hatchery procedure at [facility]. 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 -vanc zosyn stopped 03/17 -fever 38.3 last [...] Pager Mellias Haji MD Admitting Provider Cardiology 86270 Quality section A-Line necessity reviewed: Iddt-wq-iske blood pressure monitoring CVC necessity reviewed: Hemodynamic [...] Alvarado MD Author:Jose Ramon Alvarado MD [address] [address]Mrapmypzyiqwai signed by Jose Ramon Alvarado Md at 03/20/2017 12:49 PM PDTMoulton, Anurag Soni MD - 03/20/2017 12:18 PM PDTFormatting of this note might be different f rom the original. Cardiovascular Intensive Care Unit Attending Progress Note CVICU D2 Assigned #[id number] ICU Admission Reason Most Recent Value ICU [...] long tobacco abuse history, presenting with acute TX and STEMI, resu ltant cardiogenic shock refractory [...] Pager Mellisa Haji MD Admitting Provider Cardiology 02980 Code Status Code Status Full Code Quality section A-Line necessity reviewed: Wduj-kg-zhlj blood pressure monitoring CVC necessity reviewed: Medication [...] Date of Service: 03/20/2017 Author:Anurag Ashby MD [facility] [address] [place] [address]Blpjlzhxrczwco signed by Anurag Ashby MD at 03/20/2017 12:18 PM P Raul Conte MD - 03/19/2017 11:01 PM PDT Cardiovascular Intensive Care Unit Attending Progress Note CVICU D2 Assigned #[id number] ICU Admission Reason Most Recent Value ICU [...] long tobacco abuse history, presenting with acute TX and STEMI, resu ltant cardiogenic shock refractory [...] Pager Mellisa Haji MD Admitting Provider Cardiology 14959 Code Status Code Status Full Code Quality section A-Line necessity reviewed: Aiei-kf-czsi blood pressure monitoring CVC necessity reviewed: Hemodynamic [...] Date of Service: 03/19/2017 Author:Raul Wei MD [address] [address]Rndkcpbfqadmft signed by Raul Wei MD at 03/19/2017 11:01 PM PDT Jose Ramon Alvarado Md - 03/19/2017 4:49 PM PDTFormatting of this note might be different fro m the original. Cardiovascular Intensive Care Unit Team Progress Note CVICU D2 Assigned #[id number] ICU Admission Reason Most Recent Value ICU [...] Plan Patient went into VFib during laborer poultry hatchery procedure at [facility]. 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 -vanc zosyn stopped 03/17 -fever 38.3 03/17 [...] Pager Mellisa Haji MD Admitting Provider Cardiology [address] Quality section A-Line necessity reviewed: Eofh-cd-uiuo blood pressure monitoring CVC necessity reviewed: Hemodynamic monitoring Reardon necessity reviewed: Hourly/Accurate measurement of urinary output for clinical manage ment of critically ill patients FAST HUG Feeding: TFs Analgesia: multimodal Sedation: propofol Thromboprophylaxis: Heparin infusion Head of Bed: Head of Bed >30 degrees Ulcer Prophylaxis: protonix Glycemic Control: insulin infusion Created by Jose Ramon Alvarado MD Author:Jose Ramon Alvarado MD [address] [id number] signed by Jose Ramon Alvarado Md at 03/19/2017 4:54 PM Lee Fernandez MD - 03/19/2017 2:22 PM PDT . Extracorporeal Life Support Service Daily Progress Note Pager #[phone] Type: Veno-Arterial (CPT 92248 or 68[address]) Date of insertion: 03/15/2017 Diagnosis:Cardiogenic shock Dressing [...] Unit Attending Progress Note CVICU D2 Assigned #[id number] ICU Admission Reason Most Recent Value ICU [...] long tobacco abuse history, presenting with acute TX and STEMI, resu ltant cardiogenic shock refractory [...] Pager Mellisa Haji MD Admitting Provider Cardiology 41160 Code Status Code Status Full Code Quality section A-Line necessity reviewed: Dynl-ke-naxa blood pressure monitoring CVC necessity reviewed: Medication [...] of Service: 03/19/2017 Author:Anurag Ashby MD [address] [phone] signed by Anurag Ashby MD at 03/19/2017 2:17 PM Jose Ramon Worthington Md - 03/18/2017 12:56 PM PDTFormatting of this note might be different f rom the original. 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 -vanc zosyn stopped today Abnormal CK Unknown [...] Pager Mellisa Haji MD Admitting Provider Cardiology 14629 Quality section A-Line necessity reviewed: Cymy-zu-rzgw blood pressure monitoring CVC necessity reviewed: Hemodynamic monitoring Reardon necessity reviewed: Hourly/Accurate measurement of urinary output for clinical manage ment of critically ill patients FAST HUG Feeding: trickle feeds Analgesia: multimodal Sedation: propofol Thromboprophylaxis: Heparin infusion Head of Bed: Head of Bed >30 degrees Ulcer Prophylaxis: nexium Glycemic Control: insulin infusion Created by Jose Ramon Alvarado MD Author:Jose Ramon Alvarado MD [address] [address]Brysjsuxiyozlq signed by Jose Ramon Alvarado Md at 03/18/2017 1:27 PM PDTMoulton, Anurag Soni MD - 03/18/2017 11:56 AM PDTFormatting of this note might be different f rom the original. Cardiovascular Intensive Care Unit Attending Progress Note CVICU D2 Assigned #[id number] ICU Admission Reason Most Recent Value ICU [...] long tobacco abuse history, presenting with acute TX and STEMI, resu ltant cardiogenic shock refractory [...] Pager Mellisa Haji MD Admitting Provider Cardiology 28544 Code Status Code Status Full Code Quality section A-Line necessity reviewed: Iwcc-my-drvf blood pressure monitoring CVC necessity reviewed: Medication [...] of Service: 03/18/2017 Author:Anurag Ashby MD [address] [address]Qtezkzpuraudmc signed by Anurag Ashby MD at 03/18/2017 11:59 AM Lee Prince MD - 03/18/2017 11:37 AM PDTFormatting of this note might be different from t vikash original. . Extracorporeal Life Support Service Daily Progress Note Pager #[phone] Type: Veno-Arterial (CPT 11725 or 24387) Diagnosis:Cardiogenic shock Dressing changed: no Dressing Changed [...] Life Support Service Daily Progress Note Pager #[phone] Type: Veno-Arterial (CPT 71218 or 605[address]) Date of insertion: 03/15/2017 Diagnosis:Cardiogenic shock Dressing [...] Unit Attending Progress Note CVICU D2 Assigned #[id number] ICU Admission Reason Most Recent Value ICU [...] long tobacco abuse history, presenting with acute TX and STEMI, resu ltant cardiogenic shock refractory [...] Pager Mellisa Haji MD Admitting Provider Cardiology 88393 Quality section A-Line necessity reviewed: Ctjr-om-pkxi blood pressure monitoring CVC necessity reviewed: Rapid [...] Date of Service: 03/17/2017 Author:Raul Wei MD [address] [address] [place] [address]Ielhankmbvdrot signed by Raul Wei MD at 03/17/2017 9:20 PM PDT Anurag Ashby MD - 03/17/2017 1:58 PM PDT Cardiovascular Intensive Care Unit Attending Progress Note CVICU D2 Assigned #[id number] ICU Admission Reason Most Recent Value ICU [...] long tobacco abuse history, presenting with acute TX and STEMI, resu ltant cardiogenic shock refractory [...] Pager Mellisa Haji MD Admitting Provider Cardiology 17196 Quality section A-Line necessity reviewed: Eabn-kq-ytrq blood pressure monitoring CVC necessity reviewed: Medication [...] of Service: 03/17/2017 Author:Anurag Ashby MD [address] [address]Mpdenpnaayakvu signed by Anurag Ashby MD at 03/17/2017 2:00 PM P Mauri Calderon - 03/17/2017 1:01 PM PDTTransthoracic echocardiogram completed. Final r eport to follow. 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 -vanc zosyn stopped today Abnormal CK Unknown [...] Pager Mellisa Haji MD Admitting Provider Cardiology 01720 This patient does not have an Advanced Care Note for this Admission. Please use the Goal of care section of your ICU navigator to document the advanced care discussion. Quality section A-Line necessity reviewed: Nlzr-iz-kzwx blood pressure monitoring CVC necessity reviewed: Hemodynamic monitoring Reardon necessity reviewed: Hourly/Accurate measurement of urinary output for clinical manage ment of critically ill patients FAST HUG Feeding: Tube Feeds Analgesia: apap, oxy, hm Sedation: propofol Thromboprophylaxis: Heparin infusion Head of Bed: Head of Bed Flat Ulcer Prophylaxis: Pantoprazole Glycemic Control: insulin infusion Created by Teddy Kee Do, MS [facility] DEPARTMENT: [facility] ICU CARDIAC Place of Service:- Inpatient CSN: [id number] Suggested Modifier: GC - Resident Involved Suggested CPT: TO JOINT MAKER MACHINE Author:Teddy Kee Do, MS [address] [address]Pjurbryzvegvsp signed by Teddy Kee DO, MS at 03/17/2017 6:35 PM Raul Hanson MD - 03/16/2017 7:38 PM PDT Cardiovascular Intensive Care Unit Attending Progress Note CVICU D2 Assigned #[id number] ICU Admission Reason Most Recent Value ICU [...] long tobacco abuse history, presenting with acute TX and STEMI, resu ltant cardiogenic shock refractory [...] Pager Mellisa Haji MD Admitting Provider Cardiology 75864 Quality section A-Line necessity reviewed: Fbtz-sy-rsrz blood pressure monitoring CVC necessity reviewed: Rapid [...] of Service: 03/16/2017 Author:Raul Wei MD [address] [address]Muljxntdpwgjds signed by Raul Wei MD at 03/17/2017 11:03 AM Jose Ramon Boogie Md - 03/16/2017 5:15 PM PDTFormatting of this note might be different fro m the original. 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 -bridget retana for now Physical Exam vitals [...] Pager Mellisa Haji MD Admitting Provider Cardiology 38696 Quality section A-Line necessity reviewed: Zmcz-lt-rahs blood pressure monitoring CVC necessity reviewed: Hemodynamic [...] Ramon Alvarado MD Author:Jose Ramon Alvarado MD [address] [address] [place] [address]Bqcfwtzyvviyjj signed by Jose Ramon Alvarado Md at [...] Unit Attending Progress Note CVICU D2 Assigned #[id number] ICU Admission Reason Most Recent Value ICU [...] ICU Day #2 after being transferred from [place] in [place] in acute cardiogenic archie ck following an anterior STEMI. Upon arrival to [facility], decision was made to go [...] Pager Mellisa Haji MD Admitting Provider Cardiology 04922 Quality section A-Line necessity reviewed: Hzet-ie-xlro blood pressure monitoring CVC necessity reviewed: Hemodynamic [...] of Service: 03/16/2017 Author:Anurag Ashby MD [address] [address]Wlwljwvzemjiht signed by Anurag Ashby MD at 03/16/2017 1:23 PM Lee Prince MD - 03/16/2017 9:41 AM PDTFormatting of this note might be different from t he original. . Extracorporeal Life Support Service Daily Progress Note Pager #[phone] Type: Veno-Arterial (CPT 14372 [place] 133[address]) Diagnosis:Cardiogenic shock Dressing changed: no Dressing Changed [...] Remove IABP Wean Sedation Lee Amos MD irna Berumen PA-C - 03/16/2017 3:42 AM PDT Cardiovascular Intensive Care Unit Clinical Update Note Team: D2 Team Pager: [phone] Attending: Abdulaziz Merrill Name: Ron Mckeon ID: [...] Date of Service: 03/16/2017 Mirna Berumen PA-C [facility] DEPARTMENT: [facility] ICU CARDIAC Place of Service:- Inpatient CSN: [id number] Suggested Modifier: None Suggested CPT: TO JOINT MAKER MACHINE Mirna Berumen PA-C Everardo Valladares MD - 03/15/2017 9:04 PM PDT Cardiovascular Intensive Care Unit Attending Progress Note CVICU D2 Assigned #[id number] ICU Admission Reason Most Recent Value ICU Admission reason Cardiogenic Shock filed at 03/15/2017 1531 Hospital admission dx: left anterior descending artery occlusion, needs cabg Days in ICU Days in Hospital Medical Decision Making ICU Day #1 after being transferred from [place] in [place] in acute cardiogenic archie ck following an anterior STEMI. Upon arrival to [facility], decision was made to go [...] Pager Mellisa Haji MD Admitting Provider Cardiology 29931 Quality section A-Line necessity reviewed: Hzke-at-djxw blood pressure monitoring CVC necessity reviewed: Hemodynamic [...] and the recent imaging available. Seen with PA/CHEMICAL TREATMENT OPERATOR Winston Cole. Please see their note for details. I reviewed the documented findings, all data and the recent imaging available. Date of Service: 03/15/2017 Author:Everardo Cintron MD [address] [address]Ktnjwearuiojsi signed by Everardo Cintron MD at 03/15/2017 9:[address] - 03/15/2017 2:11 PM PDTTransthoracic echocardiogram completed. Final r eport to follow. Patrick Byrd MD,MPH - 03/15/2017 2:00 PM PDT . Extracorporeal Life Support Service Consult Service Note Pager #[phone] Date: 03/15/17 Author: Patrick Ruiz MD,MPH Consulting Attending: Mellisa Haji MD Reason for Consult: [facility] ECMO Consideration HPI: 61 year old male who presents this afternoon to [facility] in acute cardiogenic shock second maciej to STEMI / thrombosed L main coronary artery. He was transferred from [place]. His symptoms started this morning around 3am and was seen in [place], [place]. 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 He was found to h ave [...] and dopamine). On arrival to [facility], he was in profound cardiogenic shock and hypoxic. His MAP was in the 40s. He was tach ycardic into the 150s. IABP was increased to 1:2. Past Medical History: Past Medical History: Diagnosis Date Cardiogenic shock ([facility]) 03/15/2017 Coronary artery disease 03/15/2017 Hypercholesterolemia Hypertension STEMI (ST elevation myocardial infarction) ([facility]) 03/15/2017 Tobacco use Past Surgical History: [...] from cardiogenic shock. Patrick Ruiz MD, MPH certified income tax preparer Trauma, Critical Care & Acute Care Surgery Pending Sale To [facility] onies, Patrick Sexton MD,MPH - 03/15/2017 1:48 PM PDT . . Extracorporeal Life Support Service Initiation Note Pager #[phone] Date of service: 03/15/2017 Author: Patrick Ruiz Md,Mph ECMO Type: Veno-Arterial (CPT 44379 [place] [address]) Oxygenation index FiO2: 100 MAP: 22 Diagnosis:Cardiogenic [...] old male who presents this afternoon to [facility] in acute cardiogenic shock secondary [...] | + +--------+ + + + | QG-DI-GNP-HB,POC RT | Routin | 03/19/2017 | ST [...] | + +--------+ + + + | [place] ECMO REV | Routin | 03/19/2017 | [...] +---+--------+ + +--------+ + + + | XC-JL-ECY-HB,POC RT | Routin | 03/19/2017 | ST [...] | + +--------+ + + + | ZO-FY-ZWD-HB,POC RT | Routin | 03/19/2017 | ST elevation | Results for this | | | e | 10:06 AM | myocardial | procedure are in the | | | | PDT | infarction involving | results section. | | | | | left main coronary | | | | | | artery (HCC) | | + +--------+ + + + | HM-UM-GMP-HB,POC RT | Routin | 03/19/2017 | ST [...] | + +--------+ + + + | WT-HU-PKL-HB,POC RT | Routin | 03/17/2017 | ST [...] | + +--------+ + + + | QZ-GR-RFS-HB,POC RT | Routin | 03/16/2017 | ST [...] | + +--------+ + + + | PY-FN-XBB-HB,POC RT | Routin | 03/16/2017 | ST [...] | + +--------+ + + + | PB-MJ-UYO-HB,POC RT | Routin | 03/15/2017 | ST [...] | + +--------+ + + + | CF-AS-GED-HB,POC RT | Routin | 03/15/2017 | ST [...] | + +--------+ + + + | AQ-AA-FMJ-HB,POC RT | Routin | 03/15/2017 | ST [...] Height: 175 cm Weight: 89 kgBSA: 2.05 [id number] PHYSICIAN:Katarina Ngo | | .FELLOW:Gerson Mejias M.D. [...] right coronary angiography.COMPLICATIONS:None.TECHNIQUE:Right femoral artery | | 6-Slovak 10 cm Chelsea sheath, 6-Slovak XB 3.5 guide catheter, 5-Slovak JR4 | | catheter.DESCRIPTION OF PROCEDURE:Informed consent [...] modified Seldinger technique and a | | 5-Slovak micropuncture system, a 6-Slovak 10 cm Chelsea sheath was placed in the right | | femoral artery. A 6-Slovak XB 3.5 guide catheter was inserted into the ascending aorta | | over a guidewire. The guidewire was removed. The catheter was aspirated and flushed. | | The left coronary system was selectively engaged and imaged in multiple projections. A | | 5-Slovak Kymberly right 4 catheter was advanced to [...] DOSE AREA | | PRODUCT: 3749 cGy [id number]:Aortic pressure 87/15, mean aortic pressure 63, heart [...] 03/30/2017 04:50:01DT: | | 03/30/2017 08:34:34Job #: [id number] | |extending from it into the LAD. [...] |YDT/MODL | | | | | | /[id number] | + + CAPILLARY BLOOD GLUCOSE (NO [...] [facility] | [address] | [place], [place] | | | JULIANN SILVA OF [place] | [address] | [address] | | | TESTS | | | [...] | + + + + + | [facility] | [address] | [place] [address] | | | SERVICES, CORE | PARK [...] | + + + + + | [facility] | [address] | [place] [address] | | | SERVICES, CORE | PARK [...] LABORATORY | [address] | [place] [address] | | | SERVICES, CORE | PARK [...] [facility] | [address] | [place] [address] | | | SERVICES, CORE | TABITHA [...] (H) | 0.90 - 1.20 INR | [facility] | | | | | [...] | + + + + + | [facility] | [address] | [place] [address] | | | SERVICES, CORE | PARK [...] | + + + + + | [facility] | [address] | [place] [address] | | | SERVICES, CORE | TABITHA [...] - [facility] | [address] | [place], [place] | | | [facility] CARE | [address] | [address] | | | TESTS | | | [...] (H) | 70 - 99 mg/dL | [facility] - | | | GLUCOSE, [...] + + + | [facility] | [address] | [place], [place] | | | JULIANN SILVA OF [facility] | [address] | [address] | | | TESTS | | | [...] [facility] | [address] | [place], [place] | | | JULIANN SILVA OF CARE | [address] | [address] | | | TESTS | | | [...] [facility] | [address] | [place] [address] | | | SERVICES, CORE | PARK [...] | + + + + + | [facility] | [address] | [place] [address] | | | SERVICES, CORE | TABITHA [...] | + + + + + | [facility] | [address] | [place] [address] | | | ИРИНА ANTOINE | TABITHA [...] + + + + + | [facility] | [address] | [place] [address] | | | SERVICES, [facility] | [address] | | | + + + + + CAPILLARY BLOOD GLUCOSE (NO CHG), POC (04/01/2017 12:03 AM PDT) + +---------+ + + + | Component | Value | Ref Range | Performed | Pathologist | | | | | At | Signature | + +---------+ + + + | BLOOD | 127 (H) | 70 - 99 mg/dL | [facility] - | | | GLUCOSE, [...] [facility] | [address] | [place], [place] | | | JULIANN SILVA OF CARE | [facility] | [address] | | | TESTS | | | [...] [facility] | [address] | [place], [place] | | | JULIANN SILVA OF [place] | [address] | [address] | | | TESTS | | | [...] [facility] | [address] | [place], [place] | | | JULIANN SILVA OF CARE | [address] | [address] | | | TESTS | | | [...] [facility] | [address] | [place], [place] | | | JULIANN SILVA OF CARE | [address] | [address] | | | TESTS | | | [...] + + + + + | [facility] | [address] | [place] [address] | | | SERVICES, CORE | TABITHA [...] | + + + + + | [facility] | [address] | [place] [address] | | | SERVICES, CORE | TABITHA [...] | + + + + + | [facility] | [address] | [place] [address] | | | SERVICES, CORE | TABITHA [...] | + + + + + | [facility] | [address] | [place] [address] | | | SERVICES, CORE | PARK [...] + + + + + | [facility] | [address] | [place] [address] | | | ИРИНА ANTOINE | TABITHA [...] [facility] | [address] | [place], [place] | | | [facility]ARE | [address] | [address] | | | TESTS | | | [...] | + + + + + | [facility] | [address] | [place] [address] | | | SERVICES, CORE | [address] | | | + + + + + 12 LEAD ECG (03/30/2017 5:46 PM PDT) + + + + + + | Component | Value | Ref Range | Performed | Pathologist | | | | | At | Signature | + + + + + + | VENTRICULAR | 99 | bpm | [facility] | | | RATE | | [...] DEPT OF | [address] | [place], [place] | | | CARDIOLOGY | [address] | [address] | | + + + + + [...] | [facility] | [address] [facility] [address] [address] | [place], [place] | | | [facility] OF CARE | [address] | [address] | | | TESTS | | | [...] | + + + + + | [facility] | [address] | [place] [address] | | | SERVICES, CORE | PARK [...] | + + + + + | [facility] | [address] | [place] [address] | | | SERVICES, CORE | TABITHA [...] formed At | + +---- + | [facility]ending [facility] To [facility] | [facility] | | [facility] Adult Echocardi[facility] [address]OLOGY | | [place], [place] [address] Ph: | | | Pt Name: RON MCKEON | | | Study Date/Time 03/30/2017 / 10:44:00 AMMRN: [id number] | | | Most recent prior: 03/19/17 #: [id number] | | | No. 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 Patient | | | history has been [...] Report electronically signed by: | | | [id number] Jordon Neville MD (03/30/2017, 2:04:56 PM) Final [...] | | | |Report electronically signed by: [id number] Jordon Neville MD (03/30/2017, 2:04:56 PM) | | | | | | | | | | | | Final | | + +---- + + + | Procedure Note | + + | Interface, Cardiology Results - 03/30/2017 2:04 PM [facility] | | [facility] Echocardi[facility] Laboratory [address] [place] [address] | | [place], [place] [address] Pt Name: RON Chaudhary | | MIKE Study Date/Time 03/30/2017 / 10:44:00 AMMRN: [id number] Most | | recent prior: 03/19/17cc #: [id number] No. 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 Patient history has been | | obtained [...] Scoring: Report | | electronically signed by: [id number] Jordon Neville MD (03/30/2017, 2:04:56 PM) Final [...] | | | |Report electronically signed by: [id number] Jordon Neville MD (03/30/2017, 2:04:56 PM) | | | | | | | | Final | + + + + + + + | Performing | Address | City/State/Zipcode | Phone Number | | Organization | | | | + + + + + | [facility] | [address] | [place], [place] | | | CARDIOLOGY | [address] | [address] | | + + + + + [...] [facility] | [address] | [place], [place] | | | [facility] CARE | [address] | [address] | | | TESTS | | | [...] | + + + + + | [facility] | [address] | [place] [address] | | | SERVICES, CORE | TABITHA [...] [facility] | [address] | [place], [place] | | | JULIANN SILVA OF [facility] | [address] | [address] | | | TESTS | | | [...] OF | [address] | [place], [place] | | | CARDIOLOGY | [address] | [address] | | + + + + + [...] LABORATORY | [address] | [place] [address] | | | SERVICES, CORE | TABITHA [...] [facility] | [address] | [place] [address] | | | SERVICES, ИРИНА | TABITHA [...] | + + + + + | [facility] | [address] | [place] [address] | | | SERVICES, CORE | [address] | | | + + + + + 12 LEAD ECG (03/30/2017 2:47 AM PDT) + + + + + + | Component | Value | Ref Range | Performed | Pathologist | | | | | At | Signature | + + + + + + | VENTRICULAR | 93 | bpm | [facility] | | | RATE | | [...] + + | [facility] | [address] | [place], [place] | | | CARDIOLOGY | [address] | [address] | | + + + + + [...] DEPT OF | [address] | [place], [place] | | | CARDIOLOGY | [address] | [address] | | + + + + + [...] + + + + + | [facility] | [address] | [place] [address] | | | SERVICES, CORE | PARK [...] | + + + + + | [facility] | [address] | [place] [address] | | | SERVICES, CORE | TABITHA [...] [facility] | [address] | [place] [address] | | | SERVICES, CORE | TABITHA [...] + + + + + | [facility] | [address] | [place] [address] | | | ARASH, ИРИНА | TABITHA [...] [facility] | [address] | [place], [place] | | | JULIANN SILVA OF [place] | [address] | [address] | | | TESTS | | | [...] [facility] | [address] | [place] [address] | | | SERVICES, CORE | PARK [...] DEPT OF | [address] | [place], [place] | | | CARDIOLOGY | [address] | [address] | | + + + + + CAPILLARY BLOOD GLUCOSE (NO CHG), POC (03/29/2017 8:16 PM PDT) + +---------+ + + + | Component | Value | Ref Range | Performed | Pathologist | | | | | At | Signature | + +---------+ + + + | BLOOD | 105 (H) | 70 - 99 mg/dL | [facility] - | | | GLUCOSE, [...] [facility] | [address] | [place], [place] | | | JULIANN SILVA OF CARE | [facility] | [address] | | | TESTS | | | [...] [facility] | [address] | [place], [place] | | | JULIANN SILVA OF CARE | [address] | [address] | | | TESTS | | | [...] | + + + + + | [facility] | [address] | [place] [address] | | | SERVICES, CORE | PARK [...] [facility] | [address] | [place], [place] | | | [place] [facility] | [address] | [address] | | | TESTS | | | [...] + + + + + | [facility] | [address] | [place] [address] | | | SERVICES, CORE | TABITHA [...] | + + + + + | [facility] | [address] | [place] [address] | | | SERVICES, CORE | PARK [...] (H) | 0.90 - 1.20 INR | [facility] | | | | | [...] | + + + + + | [facility] | [address] | [place] [address] | | | SERVICES, CORE | PARK [...] + + + + + | [facility] | [address] | [place] [address] | | | SERVICES, CORE | TABITHA [...] | + + + + + | [facility] | [address] | [place] [address] | | | ИРИНА ANTOINE | TABITHA [...] | + + + + + | [facility] | [address] | [place] [address] | | | ИРИНА ANTOINE | TABITHA [...] (H) | 70 - 99 mg/dL | [facility] - | | | GLUCOSE, [...] [facility] | [address] | [place], [place] | | | [facility] | [address] | [address] | | | TESTS | | | [...] MARIA | [address] | [place], [place] | | | JULIANN SILVA OF ALEXIS | [facility] | [address] | | | TESTS | | | [...] + + + + + | [facility] | [address] | [place] [address] | | | SERVICES, CORE | TABITHA [...] | + + + + + | [facility] | [address] | [place] [address] | | | ИРИНА ANTOINE | TABITHA [...] + + + + + | [facility] | [address] | [place] [address] | | | SERVICES, ИРИНА | TABITHA [...] - [facility] | [address] | [place], [place] | | | JULIANN SILVA OF CARE | [facility] | [address] | | | TESTS | | | [...] (H) | 70 - 99 mg/dL | [facility] - | | | GLUCOSE, [...] [facility] | [address] | [place], [place] | | | JULIANN SILVA OF [place]LEX[place] | [address] | [address] | | | TESTS | | | [...] + + + + + | [facility] | [address] | [place] [address] | | | SERVICES, CORE | TABITHA [...] [facility] | [address] | [place] [address] | | | SERVICES, CORE | PARK [...] + + + + + | [facility] | [address] | [place] [address] | | | SERVICES, CORE | PARK [...] + + + + + | [facility] | [address] | [place] [address] | | | SERVICES, CORE | TABITHA [...] [facility] | [address] | [place] [address] | | | ARASH, ИРИНА | TABITHA [...] [facility] | [address] | [place], [place] | | | JULIANN SILVA OF [facility] | [address] | [address] | | | TESTS | | | [...] [facility] | [address] | [place], [place] | | | JULIANN SILVA OF CARE | [address] | [address] | | | TESTS | | | [...] [facility] | [address] | [place], [place] | | | JULIANN SILVA OF CARE | [address] | [address] | | | TESTS | | | [...] - [facility] | [address] | [place], [place] | | | [facility]ARE | [facility] | [address] | | | TESTS | | | [...] [facility] | [address] | [place] [address] | | | SERVICES, CORE | PARK [...] + + + + + | [facility] | [address] | [place] [address] | | | SERVICES, CORE | TABITHA [...] + + + + + | [facility] | [address] | [place] [address] | | | SERVICES, CORE | PARK [...] | + + + + + | [facility] | [address] | [place] [address] | | | SERVICES, CORE | TABITHA [...] [facility] | [address] | [place] [address] | | | SERVICES, CORE | TABITHA [...] [facility] | [address] | [place], [place] | | | JULIANN SILVA OF ALEXIS | [facility] | [address] | | | TESTS | | | [...] MARQU[facility] | [address] | [place], [place] | | | [facility] | [facility] | [address] | | | TESTS | | | [...] | + + + + + | [facility] | [address] | [place] [address] | | | SERVICES, CORE | TABITHA [...] [facility] | [address] | [place] | | | JULIANN SILVA OF [facility] | [address] | [address] | | | TESTS | | | [...] [facility] | [address] | [place] [address] | | | SERVICES, CORE | PARK [...] [facility] | [address] | [place] [address] | | | SERVICES, CORE | PARK [...] + + + + + | [facility] | [address] | [place] [address] | | | SERVICES, CORE | PARK [...] [facility] | [address] | [place] [address] | | | SERVICES, CORE | PARK [...] | + + + + + | [facility] | [address] | [place] [address] | | | SERVICES, CORE | PARK [...] [facility] | [address] | [place] [address] | | | SERVICES, CORE | PARK [...] [facility] | [address] | [place] [address] | | | SERVICES, SPECIAL | TABITHA [...] | + + + + + | [facility] | [address] | [place] [address] | | | SERVICES, CORE | TABITHA [...] [facility] | [address] | [place] | | | JULIANN SILVA OF CARE | [address] | [address] | | | TESTS | | | [...] MARIA | [address] | [place] | | | JULIANN SILVA OF [facility] | [facility] | [address] | | | TESTS | | | [...] + + + + + | [facility] | [address] | [place] [address] | | | SERVICES, CORE | PARK [...] | [facility] | | | GRAVITY | [place] performed by | | LABORATORY | | [...] + + + + + | [facility] | [address] | [place] [address] | | | SERVICES, ИРИНА | TABITHA [...] + | [facility] | [address] | [place] [address] | | | [place] | | | [...] [facility] | [address] | [place] | | | [facility] | [address] | [address] | | | TESTS | | | [...] [facility] | [address] | [place], [place] | | | [facility]ARE | [address] | [address] | | | TESTS | | | [...] + + + + + | [facility] | [address] | [place] [address] | | | ARASH, CORE | PARK [...] [facility] | [address] | [place] [address] | | | SERVICES, CORE | TABITHA [...] (H) | 0.90 - 1.20 INR | [facility] | | | | | | LABORATORY [...] | + + + + + | [facility] | [address] | [place] [address] | | | SERVICES, CORE | [address] | | | + + + + + MAGNESIUM, PLASMA (03/25/2017 12:52 AM PDT) + +---------+ + + + | Component | Value | Ref Range | Performed | Pathologist | | | | | At | Signature | + +---------+ + + + | MAGNESIUM,P | 3.3 (H) | 1.8 - 2.5 mg/dL | [facility] | | | LASMA | [...] + + + + + | [facility] | [address] | [place] [address] | | | SERVICES, CORE | TABITHA [...] >60 mL/min | [facility] | | | -[facility] | | | LABORATORY | | | [...] + + + + + | [facility] | [address] | [place] [address] | | | SERVICES, CORE | TABITHA [...] | + + + + + | [facility] | [address] | [place] [address] | | | SERVICES, CORE | TABITHA [...] [facility] | [address] | [place], [place] | | | JULIANN SILVA OF ALEXIS | [facility] | [address] | | | TESTS | | | [...] [facility] | [address] | [place] | | | [facility]ARE | [address] | [address] | | | TESTS | | | [...] [facility] | [address] | [place] | | | [facility]ARE | [address] | [address] | | | TESTS | | | [...] BLUAM | [address] | [place], [place] | | | JULIANN SILVA OF CARE | [address] | [address] | | | TESTS | | | [...] + + + + + | [facility] | [address] | [place] [address] | | | SERVICES, CORE | PARK [...] + + + + + | [facility] | [address] | [place] [address] | | | ИРИНА ANTOINE | TABITHA [...] (H) | 70 - 99 mg/dL | [facility] - | | | GLUCOSE, [...] [facility] | [address] | [place], [place] | | | JULIANN SILVA OF CARE | [address] | [address] | | | TESTS | | | [...] attempt. Midline lot number | | | [id number]; there was + blood return. The catheter [...] ANA MARIA | [address] | [place], [place] | | | JULIANN SILVA OF CARE | [address] | [address] | | | TESTS | | | [...] (H) | 70 - 99 mg/dL | [facility] - | | | GLUCOSE, [...] [facility] | [address] | [place] | | | [facility]ARE | [address] | [address] | | | TESTS | | | [...] + + + + + | [facility] | [address] | [place] [address] | | | ИРИНА ANTOINE | TABITHA [...] [facility] | [address] | [place] | | | JULIANN SILVA OF CARE | [facility] | [address] | | | TESTS | | | [...] (H) | 70 - 99 mg/dL | [facility] - | | | GLUCOSE, [...] [facility] | [address] | [place] | | | [facility] CARE | [address] | [address] | | | TESTS | | | [...] [facility] | [address] | [place] | | | JULIANN SILVA OF [place]LEX[place] | [facility] | [address] | | | TESTS | | | [...] - [facility] | [address] | [place] | | | RICARDO POINT OF [facility] | [address] | [address] | | | TESTS | | | [...] | + + + + + | [facility] | [address] | [place] [address] | | | SERVICES, CORE | PARK [...] [facility] | [address] | [place] [address] | | | SERVICES, CORE | PARK [...] + + + + + | [facility] | [address] | [place] [address] | | | SERVICES, CORE | TABITHA [...] + + + + + | [facility] | [address] | [place] [address] | | | SERVICES, CORE | PARK [...] + + + + + | [facility] | [address] | [place] [address] | | | ARASH, ИРИНА | TABITHA [...] - ANA MARIA | [address] | [place], [place] | | | JULIANN SILVA OF ALEXIS | [facility] | [address] | | | TESTS | | | [...] (H) | 70 - 99 mg/dL | [facility] - | | | GLUCOSE, [...] [facility] | [address] | [place] | | | JULIANN SILVA OF CARE | [address] | [address] | | | TESTS | | | [...] [facility] | [address] | [place], [place] | | | JULIANN SILVA OF ALEXIS | [facility] | [address] | | | TESTS | | | [...] [facility] | [address] | [place] | | | [facility] POINT OF CARE | [facility] | [address] | | | TESTS | | | [...] + + + + + | [facility] | [address] | [place] [address] | | | SERVICES, CORE | TABITHA [...] [facility] | [address] | [place] | | | JULIANN SILVA OF [place]LEX[place] | [address] | [address] | | | TESTS | | | [...] MARAI | [address] | [place], [place] | | | [facility]O [place] [facility] | [facility] | [address] | | | TESTS | | | [...] | + + + + + | [facility] | [address] | [place] [address] | | | SERVICES, CORE | PARK [...] (H) | 70 - 99 mg/dL | [facility] - | | | GLUCOSE, | | [...] [facility] | [address] | [place] | | | JULIANN SILVA OF ALEX[place] | [facility] | [address] | | | TESTS | | | [...] BLU[facility] | [address] | [place] | | | JULIANN SILVA OF CARE | [facility] | [address] | | | TESTS | | | [...] (H) | 70 - 99 mg/dL | [facility] - | | | GLUCOSE, [...] MARIA | [address] | [place] | | | [facility] PO[facility] CARE | [address] | [address] | | | TESTS | | | [...] R[facility] | [address] | [place] | | | JULIANN SILVA OF [place]LEX[place] | [facility] | [address] | | | TESTS | | | [...] - [facility] | [address] | [place] | | | [facility] POINT OF [facility] | [facility] | [address] | | | TESTS | | | [...] [facility] | [address] | [place] [address] | | | SERVICES, CORE | PARK [...] LABORATORY | [address] | [place] [address] | | | SERVICES, CORE | PARK [...] + + + + + | [facility] | [address] | [place] [address] | | | SERVICES, CORE | TABITHA [...] + + + + + | [facility] | [address] | [place] [address] | | | SERVICES, CORE | TABITHA [...] + + + + + | [facility] | [address] | [place] [address] | | | ARASH, ИРИНА | TABITHA [...] - [facility] | [address] | [place] | | | JULIANN SILVA OF CARE | [facility] | [address] | | | TESTS | | | [...] (H) | 70 - 99 mg/dL | [facility] - | | | GLUCOSE, [...] [facility] | [address] | [place], [place] | | | R[facility]O POINT OF CARE | [address] | [address] | | | TESTS | | | [...] [facility] | [address] | [place], [place] | | | JULIANN SILVA OF [place] | [facility] | [address] | | | TESTS | | | [...] - [facility] | [address] | [place], [place] | | | JULIANN SILVA OF CARE | [facility] | [address] | | | TESTS | | | [...] (H) | 70 - 99 mg/dL | [facility] - | | | GLUCOSE, [...] [facility] | [address] | [place] | | | [facility]O POINT OF CARE | [address] | [address] | | | TESTS | | | [...] [facility] | [address] | [place], [place] | | | JULIANN SILVA OF [place]LEX[place] | [facility] | [address] | | | TESTS | | | [...] | + + + + + | [facility] | [address] | [place] [address] | | | SERVICES, CORE | TABITHA [...] (H) | 70 - 99 mg/dL | [facility] - | | | GLUCOSE, [...] [facility] | [address] | [place], [place] | | | JULIANN SILVA OF [place] | [address] | [address] | | | TESTS | | | [...] [facility] | [address] | [place], [place] | | | JULIANN SILVA OF CARE | [address] | [address] | | | TESTS | | | [...] - [facility] | [address] | [place], [place] | | | JULIANN SILVA OF CARE | [address] | [address] | | | TESTS | | | [...] [facility] | [address] | [place], [place] | | | JULIANN SILVA OF [place] | [address] | [address] | | | TESTS | | | [...] MARQU[facility] | [address] | [place], [place] | | | JULIANN SILVA OF CARE | [address] | [address] | | | TESTS | | | [...] + + + + + | [facility] | [address] | [place] [address] | | | SERVICES, CORE | PARK [...] MARIA | [address] | [place] | | | JULIANN SILVA OF [place] | [address] | [address] | | | TESTS | | | [...] BLUAM | [address] | [place] | | | JULIANN SILVA OF [place]LEX[place] | [facility] | [address] | | | TESTS | | | [...] (H) | 70 - 99 mg/dL | [facility] - | | | GLUCOSE, [...] [facility] | [address] | [place], [place] | | | [facility] PO[facility] OF CARE | [address] | [address] | | | TESTS | | | [...] R[facility] | [address] | [place] | | | JULIANN SILVA OF [place] | [address] | [address] | | | TESTS | | | [...] MARIA | [address] | [place], [place] | | | JULIANN SILVA OF CARE | [facility] | [address] | | | TESTS | | | [...] (H) | 70 - 99 mg/dL | [facility] - | | | GLUCOSE, [...] BLU[facility] | [address] | [place], [place] | | | [facility] POINT OF CARE | [address] | [address] | | | TESTS | | | [...] [facility] | [address] | [place] [address] | | | SERVICES, | [address] [...] [facility] | [address] | [place] [address] | | | SERVICES, | [address] [...] + + + + | PRODUCT | [id number] | | [facility] | | | UNIT [...] + + + + | EXPIRATION | [id number] | | [facility] | | | DATE [...] + + + + | BLOOD | [id number] | | [facility] | | | PRODUCT [...] + + + + + | [facility] | [address] | [place] [address] | | | SERVICES, | [address] [...] | + + + + + | [facility] | [address] | [place] [address] | | | SERVICES, CORE | PARK [...] [facility] | [address] | [place] [address] | | | SERVICES, CORE | PARK [...] + + + + + | [facility] | [address] | [place] [address] | | | SERVICES, CORE | PARK [...] + + + + + | [facility] | [address] | [place] [address] | | | SERVICES, CORE | PARK [...] [facility] | [address] | [place] [address] | | | SERVICES, CORE | PARK [...] + + + + + | [facility] | [address] | [place] [address] | | | SERVICES, ИРИНА | TABITHA [...] - [facility] | [address] | [place], [place] | | | JULIANN SILVA OF CARE | [facility] | [address] | | | TESTS | | | [...] (H) | 70 - 99 mg/dL | [facility] - | | | GLUCOSE, [...] [facility] | [address] | [place], [place] | | | R[facility]O POINT OF CARE | [address] | [address] | | | TESTS | | | [...] R[facility]GERS | [address] | [place], [place] | | | JULIANN SILVA OF [place]LEX[place] | [facility] | [address] | | | TESTS | | | [...] - [facility]QU[facility] | [address] | [place], [place] | | | JULIANN SILVA OF CARE | [facility] | [address] | | | TESTS | | | [...] (H) | 70 - 99 mg/dL | [facility] - | | | GLUCOSE, [...] [facility] | [address] | [place] | | | [facility] PO[facility] CARE | [address] | [address] | | | TESTS | | | [...] R[facility]GERS | [address] | [place] | | | JULIANN SILVA OF [place] | [facility] | [address] | | | TESTS | | | [...] MARQU[facility] | [address] | [place] | | | JULIANN SILVA OF CARE | [facility] | [address] | | | TESTS | | | [...] (H) | 70 - 99 mg/dL | [facility] - | | | GLUCOSE, [...] [facility] | [address] | [place] | | | [facility] POINT OF CARE | [address] | [address] | | | TESTS | | | [...] + + + + + | [facility] | [address] | [place], [place] | | | JULIANN SILVA OF [place]LEX[place] | [facility] | [address] | | | TESTS | | | [...] | + + + + + | [facility] | [address] | [place] [address] | | | SERVICES, CORE | PARK [...] MARQU[facility] | [address] | [place] | | | JULIANN SILVA OF CARE | [address] | [address] | | | TESTS | | | [...] [facility] | [address] | [place] | | | JULIANN SILVA OF CARE | [facility] | [address] | | | TESTS | | | [...] R[facility] | [address] | [place], [place] | | | JULIANN SILVA OF CARE | [address] | [address] | | | TESTS | | | [...] times. The insertion site was prepped with Ugero cloth and | | | Chloraprep. Anesthesia was obtained with 1 mL of buffered 1% | | | Lidocaine. Midline Catheter Insertion: The R brachial vein was | | | cannulated with dark red, non-pulsatile blood return. A 18g 10cm | | | PowerGlide catheter was placed on the 1 attempt. Midline lot | | | number [id number]; there was + blood return. The catheter [...] [facility] | [address] | [place], [place] | | | JULIANN SILVA OF [place]LEX[place] | [facility] | [address] | | | TESTS | | | [...] R[facility]GERS | [address] | [place], [place] | | | JULIANN SILVA OF CARE | [address] | [address] | | | TESTS | | | [...] | + + + + + | [facility] | [address] | [place] [address] | | | SERVICES CORE | TABITHA [...] R[facility]GERS | [address] | [place] | | | JULIANN SILVA OF [place] | [address] | [address] | | | TESTS | | | [...] + + + + + | [facility] | [address] | [place] [address] | | | SERVICES, CORE | TABITHA [...] [facility] | [address] | [place] | | | JULIANN SILVA OF CARE | [address] | [address] | | | TESTS | | | [...] - [facility] | [address] | [place], [place] | | | JULIANN SILVA OF CARE | [address] | [address] | | | TESTS | | | [...] RODGERS | [address] | [place], [place] | | | JULIANN [facility] | [address] | [address] | | | TESTS | | | [...] MARQUAM | [address] | [place], [place] | | | JULIANN SIL[facility] CARE | [address] | [address] | | | TESTS | | | [...] [facility] | [address] | [place] [address] | | | SERVICES, CORE | PARK [...] [facility] | [address] | [place] [address] | | | SERVICES, CORE | PARK [...] + + + + + | [facility] | [address] | [place] [address] | | | ИРИНА ANTOINE | TABITHA [...] + + + + + | [facility] | [address] | [place] [address] | | | SERVICES, CORE | PARK [...] MARIA | [address] | [place], [place] | | | JULIANN SILVA OF ALEXIS | [address] | [address] | | | TESTS | | | [...] ANA MARIA | [address] | [place], [place] | | | JULIANN [facility] | [address] | [address] | | | TESTS | | | [...] RODGERS | [address] | [place], [place] | | | JULIANN [facility]ARE | [address] | [address] | | | TESTS | | | [...] MARQUAM | [address] | [place], [place] | | | [facility] | [address] | [address] | | | TESTS | | | [...] ANA MARIA | [address] | [place], [place] | | | [facility] | [address] | [address] | | | TESTS | | | [...] [facility] | [address] | [place] [address] | | | SERVICES, CORE | PARK [...] MARIA | [address] | [place], [place] | | | JULIANN [facility]ARE | [address] | [address] | | | TESTS | | | [...] (H) | 70 - 99 mg/dL | [facility] - | | | GLUCOSE, [...] RODGERS | [address] | [place], [place] | | | [facility] | [address] | [address] | | | TESTS | | | [...] MARQUAM | [address] | [place], [place] | | | JULIANN [facility] | [address] | [address] | | | TESTS | | | [...] MARIA | [address] | [place], [place] | | | JULIANN [facility]ARE | [address] | [address] | | | TESTS | | | [...] (H) | 70 - 99 mg/dL | [facility] - | | | GLUCOSE, [...] RODGERS | [address] | [place], [place] | | | [facility] | [address] | [address] | | | TESTS | | | [...] MARQUAM | [address] | [place], [place] | | | J[facility]IANN [facility] | [address] | [address] | | | TESTS | | | [...] ANA MARIA | [address] | [place], [place] | | | [facility] | [address] | [address] | | | TESTS | | | [...] | + + + + + | [facility] | [address] | [place] [address] | | | SERVICES, ИРИНА | TABITHA [...] MARQUAM | [address] | [place], [place] | | | HILL, POINT OF CARE | [address] | [address] | | | TESTS | | | [...] MARQUAM | [address] | [place], [place] | | | JULIANN SILVA [facility] | [address] | [address] | | | TESTS | | | [...] + + + + + | [facility] | [address] | [place] [address] | | | SERVICES, CORE | TABITHA [...] MARQUAM | [address] | [place], [place] | | | JULIANN S[facility]VA [facility] CARE | [address] | [address] | | | TESTS | | | [...] the tip in the proximal gastric body. [place] [facility] | | | catheter in place. [...] with the tip in the proximal gastric body.[place] [facility] catheter in | | place.Limited evaluation of the lungs as technique was tailored for feeding tube.I have | | personally reviewed the images and, if necessary, edited the report. I agree with the | | report as now presented. | | | |Feeding tube is seen in the stomach with the tip in the proximal gastric body. | |[place] [facility] catheter in place. | |Limited evaluation [...] MARQUAM | [address] | [place], [place] | | | JULIANN [facility]ARE | [address] | [address] | | | TESTS | | | [...] MARIA | [address] | [place], [place] | | | JULIANN SILVA [facility] CARE | [facility] | [address] | | | TESTS | | | [...] (H) | 70 - 99 mg/dL | [facility] - | | | GLUCOSE, [...] RODGERS | [address] | [place], [place] | | | JULIANN SILVA [facility] CARE | [facility] | [address] | | | TESTS | | | [...] MARQUAM | [address] | [place], [place] | | | JULIANN SILVA [facility] CARE | [address] | [address] | | | TESTS | | | [...] MARIA | [address] | [place], [place] | | | JULIANN SILVA OF [facility] | [address] | [address] | | | TESTS | | | [...] [facility] | [address] | [place] [address] | | | SERVICES, CORE | PARK [...] [facility] | [address] | [place] [address] | | | SERVICES, CORE | PARK [...] | + + + + + | [facility] | [address] | [place] [address] | | | SERVICES, CORE | TABITHA [...] (H) | 70 - 99 mg/dL | [facility] - | | | GLUCOSE, [...] [facility] | [address] | [place], [place] | | | JULIANN SILVA OF CARE | [address] | [address] | | | TESTS | | | | + + + + + X-RAY PORTABLE CHEST 1 VIEW (03/20/2017 6:33 AM PDT) + + | Specimen | + + | | + + + + + | Narrative | Performed At | + + + | EXAM: OH CHEST 1 VIEW 03/20/17 04:29:28 HISTORY: ECMO [...] Note | + + | Service Account, Illumio In Interface - 03/20/2017 10:12 AM PDT EXAM: OH CHEST 1 | | VIEW 03/20/17 04:29:28 [...] MARIA | [address] | [place], [place] | | | JULIANN SILVA OF ALEXIS | [facility] | [address] | | | TESTS | | | [...] BLUAM | [address] | [place], [place] | | | JULIANN SILVA OF ALEXIS | [facility] | [address] | | | TESTS | | | [...] (H) | 70 - 99 mg/dL | [facility] - | | | GLUCOSE, [...] R[facility] | [address] | [place], [place] | | | RICARDO POINT [facility] CARE | [address] | [address] | | | TESTS | | | [...] MARIA | [address] | [place], [place] | | | JULIANN SILVA OF [place] | [address] | [address] | | | TESTS | | | [...] [facility] | [address] | [place] [address] | | | ИРИНА ANTOINE | TABITHA [...] LABORATORY | [address] | [place] [address] | | | SERVICES, CORE | PARK [...] + + + + + | [facility] | [address] | [place] [address] | | | SERVICES, CORE | TABITHA [...] + + + + + | [facility] | [address] | [place] [address] | | | ARASH, CORE | PARK [...] + + + + + | [facility] | [address] | [place] [address] | | | SERVICES, CORE | TABITHA [...] MARQUAM | [address] | [place], [place] | | | JULIANN SILVA OF CARE | [facility] | [address] | | | TESTS | | | [...] (H) | 70 - 99 mg/dL | [facility] - | | | GLUCOSE, [...] MARIA | [address] | [place], [place] | | | JULIANN SILVA OF CARE | [address] | [address] | | | TESTS | | | [...] + + + + + | [facility] | [address] | [place] [address] | | | SERVICES, CORE | TABITHA [...] MARQUAM | [address] | [place], [place] | | | R[facility]O POINT [facility]ARE | [address] | [address] | | | TESTS | | | [...] ANA MARIA | [address] | [place], [place] | | | [facility]CRAMENTO [facility] [facility] | [address] | [address] | | | TESTS | | | [...] + + + + + | [facility] | [address] | [place] [address] | | | SERVICES, CORE | TABITHA [...] MARQUAM | [address] | [place], [place] | | | JULIANN SILVA OF CARE | [address] | [address] | | | TESTS | | | [...] + + + + + | [facility] | [address] | [place] [address] | | | ARASH, ИРИНА | TABITHA [...] [facility] | [address] | [place], [place] | | | [facility] | [facility] | [address] | | | TESTS | | | [...] [facility] | [address] | [place] [address] | | | SERVICES, CORE | PARK [...] + + + + + | [facility] | [address] | [place] [address] | | | SERVICES, CORE | PARK [...] MARQUAM | [address] | [place], [place] | | | JULIANN SILVA OF CARE | [address] | [address] | | | TESTS | | | [...] [facility] | [address] | [place] [address] | | | SERVICES, CORE | PARK [...] | + + + + + | [facility] | [address] | [place] [address] | | | ARASH, CORE | TABITHA [...] [facility] | [address] | [place] [address] | | | ИРИНА ANTOINE | TABITHA [...] [facility] | [address] | [place] [address] | | | ИРИНА ANTOINE | TABITHA [...] BLUAM | [address] | [place], [place] | | | [facility] | [address] | [address] | | | TESTS | | | [...] R[facility] | [address] | [place], [place] | | | JULIANN SILVA OF [place] | [address] | [address] | | | TESTS | | | [...] MARQUAM | [address] | [place], [place] | | | [facility] | [address] | [address] | | | TESTS | | | [...] [facility] | [address] | [place] [address] | | | SERVICES, ИРИНА | TABITHA [...] DEPT OF | [address] | [place], [place] | | | CARDIOLOGY | [address] | [address] | | + + + + + [...] [facility] | [address] | [place], [place] | | | JULIANN SILVA OF CARE | [address] | [address] | | | TESTS | | | | + + + + + MN-XH-XAO-HB,POC RT (03/19/2017 1:04 PM PDT) + + [...] [facility] | [address] | [place], [place] | | | JULIANN SILVA OF [place] | [address] | [address] | | | TESTS | | | [...] + + + + | PRODUCT | [id number] | | [facility] | | | UNIT [...] + + + + | EXPIRATION | [id number] | | [facility] | | | DATE [...] + + + + | BLOOD | [id number] | | [facility] | | | PRODUCT [...] [facility] | [address] | [place] [address] | | | SERVICES, | [address] [...] + + + + | PRODUCT | [id number] | | [facility] | | | UNIT [...] + + + + | EXPIRATION | [id number] | | [facility] | | | DATE [...] + + + + | BLOOD | [id number] | | [facility] | | | PRODUCT [...] [facility] | [address] | [place] [address] | | | SERVICES, | [address] [...] + + + + | PRODUCT | [id number] | | [facility] | | | UNIT [...] + + + + | EXPIRATION | [id number] | | [facility] | | | DATE [...] + + + + | BLOOD | [id number] | | [facility] | | | PRODUCT [...] [facility] | [address] | [place] [address] | | | SERVICES, | [address] [...] + + + + | PRODUCT | [id number] | | [facility] | | | UNIT [...] + + + + | EXPIRATION | [id number] | | [facility] | | | DATE [...] + + + + | BLOOD | [id number] | | [facility] | | | PRODUCT [...] [facility] | [address] | [place] [address] | | | SERVICES, | [address] [...] + + + + + | [facility] | [address] | [place] [address] | | | SERVICES, CORE | TABITHA [...] [facility] | [address] | [place] [address] | | | SERVICES, CORE | TABITHA [...] | + + + + + | [facility] | [address] | [place] [address] | | | SERVICES, CORE | PARK [...] 1.12 | 0.90 - 1.20 INR | [facility] | | | | | | LABORATORY [...] CBC INR Therapeutic ranges for full | [facility] | | anticoagulation: INR for Venous Thromboembolism [...] | + + + + + | [facility] | [address] | [place] [address] | | | SERVICES, CORE | [address] | | | + + + + + OH ECMO REV (EXT)AND/OR DECANNULATION (03/19/2017 12:36 PM [...] Siria | | | GISELL Preston PhD [facility] [address] [id number] [place], | | | [place] [address] | | + + + ABG-FULL ABL, POC (03/19/2017 12:14 PM PDT) + + + + + + | Component | Value | Ref Range | Performed | Pathologist | | | | | At | Signature | + + + + + + | PH | 7.42 | 7.37 - 7.44 | [facility] - | | | ARTERIAL, [...] MARIA | [address] | [place], [place] | | | JULIANN SILVA OF ALEXIS | [facility] | [address] | | | TESTS | | | [...] MARQUAM | [address] | [place], [place] | | | JULIANN SILVA OF CARE | [facility] | [address] | | | TESTS | | | | + + + + + GS-ZM-LGF-HB,POC RT (03/19/2017 10:24 AM PDT) + + [...] MARQUAM | [address] | [place], [place] | | | JULIANN SILVA OF ALEX[place] | [address] | [address] | | | TESTS | | | [...] R[facility] | [address] | [place], [place] | | | [facility] POINT [facility]ARE | [address] | [address] | | | TESTS | | | | + + + + + QB-QY-UCR-DWAINEPOC RT (03/19/2017 10:06 AM PDT) + + [...] MARQUAM | [address] | [place], [place] | | | JULIANN SILVA OF CARE | [address] | [address] | | | TESTS | | | | + + + + + GL-BM-DIV-HB,POC RT (03/19/2017 9:51 AM PDT) + + [...] R[facility] | [address] | [place], [place] | | | JULIANN SILVA OF ALEXIS | [address] | [address] | | | TESTS | | | [...] + + + + | PRODUCT | [id number] | | [facility] | | | UNIT [...] + + + + | EXPIRATION | [id number] | | [facility] | | | DATE [...] + + + + | BLOOD | [id number] | | [facility] | | | PRODUCT [...] + + + + + | [facility] | [address] | [place] [address] | | | SERVICES, | [address] [...] + + + + | PRODUCT | [id number] | | [facility] | | | UNIT [...] + + + + | EXPIRATION | [id number] | | [facility] | | | DATE [...] + + + + | BLOOD | [id number] | | [facility] | | | PRODUCT [...] [facility] | [address] | [place] [address] | | | SERVICES, | [address] [...] + + + + | PRODUCT | [id number] | | [facility] | | | UNIT [...] + + + + | EXPIRATION | [id number] | | [facility] | | | DATE [...] + + + + | BLOOD | [id number] | | [facility] | | | PRODUCT [...] [facility] | [address] | [place] [address] | | | SERVICES, | [address] [...] + + + + | PRODUCT | [id number] | | [facility] | | | UNIT [...] + + + + | EXPIRATION | [id number] | | [facility] | | | DATE [...] + + + + | BLOOD | [id number] | | [facility] | | | PRODUCT [...] | + + + + + | [facility] | [address] | [place] [address] | | | ARASH, | TABITH[address] ALICEA | | | | TRANSFUSION MEDICINE | | | | + + + + + X-RAY PORTABLE CHEST 1 VIEW (03/19/2017 9:13 AM PDT) + + | Specimen | + + | | + + + + + | Narrative | Performed At | + + + | EXAM: OH CHEST 1 VIEW HISTORY: ECMO. Evaluate cannula | [facility] | | placement. COMPARISON: Yesterday FINDINGS: Endotracheal | RADIOLOGY VOICE | | tube, [place]-Олег catheter and enteric tube remain in place. [...] Interface - 03/19/2017 9:17 AM PDT EXAM: OH CHEST 1 | | VIEW HISTORY: ECMO. Evaluate cannula placement.COMPARISON: YesterdayFINDINGS: | | Endotracheal tube, [place]-Олег catheter and enteric tube remain in place. [...] [facility] | [address] | [place], [place] | | | JULIANN SILVA OF CARE | [address] | [address] | | | TESTS | | | [...] MARQUAM | [address] | [place], [place] | | | JULIANN SILVA OF CARE | [address] | [address] | | | TESTS | | | [...] | + + + + + | [facility] | [address] | [place] [address] | | | SERVICES, CORE | TABITHA [...] (H) | 70 - 99 mg/dL | [facility] - | | | GLUCOSE, [...] + + + | [facility] | [address] | [place], [place] | | | [facility]O [facility] [facility] | [address] | [address] | | | TESTS | | | [...] MARQUAM | [address] | [place], [place] | | | JULIANN SILVA OF [place]LEX[place] | [address] | [address] | | | TESTS | | | [...] - [facility] | [address] | [place], [place] | | | R[facility] POINT [facility] CARE | [address] | [address] | | | TESTS | | | [...] R[facility] | [address] | [place], [place] | | | R[facility]ARDO POINT [facility] | [address] | [address] | | | TESTS | | | [...] + + + + + | [facility] | [address] | [place] [address] | | | SERVICES, ИРИНА | TABITHA [...] BLUAM | [address] | [place], [place] | | | JULIANN SILVA OF ALEXIS | [facility] | [address] | | | TESTS | | | [...] (H) | 70 - 99 mg/dL | [facility] - | | | GLUCOSE, [...] R[facility] | [address] | [place], [place] | | | R[facility] POINT [facility] CARE | [address] | [address] | | | TESTS | | | [...] MARIA | [address] | [place], [place] | | | GURINDER SILVA | [facility] | [address] | | | TESTS | | | [...] + + + + + | [facility] | [address] | [place] [address] | | | ARASH, ИРИНА | TABITHA [...] (A) | 5 - 10 Minutes | [facility] - | | | CITRATED | | | [facility] | | | | | | JULIANN SILVA | | | | | | OF CARE | | | | | | TESTS | | + + + + + + | K - | 1.8 | 1 - 3 Minutes | [facility] - | | | CITRATED [...] [facility] | [address] | [place], [place] | | | JULIANN SILVA OF [place] | [address] | [address] | | | TESTS | | | [...] [facility] | [address] | [place] [address] | | | ИРИНА ANTOINE | TABITHA [...] [facility] | [address] | [place] [address] | | | SERVICES, CORE | PARK [...] | + + + + + | [facility] | [address] | [place] [address] | | | ИРИНА ANTOINE | TABITHA [...] [facility] | [address] | [place] [address] | | | SERVICES, CORE | PARK [...] + + + + + | [facility] | [address] | [place] [address] | | | SERVICES, CORE | TABITHA [...] magnesium repletion if magnesium < 1.6. | [facility] | | | LABORATORY | | | ИРИНА ANTOINE | + + + + + + + + | Performing | Address | City/State/Zipcode | Phone Number | | Organization | | | | + + + + + | [facility] | [address] | [place] [address] | | | SERVICES, ИРИНА | PARK [...] + + + + + | [facility] | [address] | [place] [address] | | | SERVICES, CORE | TABITHA [...] [facility] | [address] | [place] [address] | | | SERVICES, CORE | PARK [...] + + + + + | [facility] | [address] | [place] [address] | | | SERVICES, CORE | TABITHA [...] MARIA | [address] | [place], [place] | | | JULIANN SILVA OF ALEX[place] | [address] | [address] | | | TESTS | | | [...] + + + + + | [facility] | [address] | [place] [address] | | | SERVICES, CORE | TABITHA [...] MARIA | [address] | [place] | | | JULIANN SILVA OF [place] | [address] | [address] | | | TESTS | | | [...] BLUAM | [address] | [place], [place] | | | JULIANN SILVA OF [facility] | [address] | [address] | | | TESTS | | | [...] | + + + + + | [facility] | [address] | [place] [address] | | | SERVICES, CORE | TABITHA [...] (H) | 70 - 99 mg/dL | [facility] - | | | GLUCOSE, [...] [facility] | [address] | [place], [place] | | | JULIANN SILVA OF CARE | [address] | [address] | | | TESTS | | | [...] MAR[facility] | [address] | [place], [place] | | | HILL, POINT OF CARE | [address] | [address] | | | TESTS | | | [...] MARQU[facility] | [address] | [place], [place] | | | JULIANN SILVA OF CARE | [address] | [address] | | | TESTS | | | [...] [facility] | [address] | [place] [address] | | | SERVICES, CORE | PARK [...] | + + + + + | [facility] | [address] | [place] [address] | | | SERVICES, CORE | TABITHA [...] [facility] | [address] | [place], [place] | | | JULIANN SILVA OF [place]LEX[place] | [address] | [address] | | | TESTS | | | [...] + + + + + | [facility] | [address] | [place] [address] | | | ИРИНА ANTOINE | TABITHA [...] (H) | 70 - 99 mg/dL | [facility] - | | | GLUCOSE, [...] [facility] | [address] | [place], [place] | | | [facility]O PO[facility]ARE | [address] | [address] | | | TESTS | | | [...] MARIA | [address] | [place], [place] | | | JULIANN SILVA OF [place]LEX[place] | [address] | [address] | | | TESTS | | | [...] [facility] | [address] | [place] [address] | | | SERVICES, CORE | PARK [...] | + + + + + | [facility] | [address] | [place] [address] | | | ИРИНА ANTOINE | TABITHA [...] (H) | 70 - 99 mg/dL | [facility] - | | | GLUCOSE, [...] [facility] | [address] | [place], [place] | | | [facility] POINT [facility]ARE | [address] | [address] | | | TESTS | | | [...] R[facility] | [address] | [place], [place] | | | JULIANN SILVA OF ALEXIS | [facility] | [address] | | | TESTS | | | [...] | + + + + + | [facility] | [address] | [place] [address] | | | SERVICES, CORE | TABITHA [...] LABORATORY | [address] | [place] [address] | | | SERVICES, CORE | PARK [...] + + + + + | [facility] | [address] | [place] [address] | | | SERVICES, ИРИНА | TABITHA [...] LABORATORY | [address] | [place] [address] | | | SERVICES, CORE | PARK [...] [facility] | [address] | [place] [address] | | | SERVICES, CORE | PARK [...] + + + + + | [facility] | [address] | [place] [address] | | | SERVICES, CORE | TABITHA [...] + + + + + | [facility] | [address] | [place] [address] | | | SERVICES, CORE | TABITHA [...] | + + + + + | [facility] | [address] | [place] [address] | | | SERVICES, CORE | TABITHA [...] - [facility] | [address] | [place], [place] | | | JULIANN SILVA OF CARE | [address] | [address] | | | TESTS | | | [...] + + + | [facility] | [address] | [place], [place] | | | R[facility]ARDO POINT OF CARE | [address] | [address] | | | TESTS | | | [...] [facility] | [address] | [place] [address] | | | SERVICES, CORE | PARK [...] MARIA | [address] | [place] | | | [facility] | [address] | [address] | | | TESTS | | | [...] + + + + + | [facility] | [address] | [place] [address] | | | SERVICES, CORE | PARK [...] [facility] | [address] | [place] [address] | | | ARASH, CORE | PARK [...] | + + + + + | [facility] - | [address] | [place] [address] | | | [place] | | | | + + + [...] [facility] | [address] | [place], [place] | | | JULIANN SILVA OF [facility] | [address] | [address] | | | TESTS | | | [...] [facility] | [address] | [place], [place] | | | JULIANN SILVA OF CARE | [address] | [address] | | | TESTS | | | [...] [facility] | [address] | [place] [address] | | | SERVICES, CORE | PARK [...] | + + + + + | [facility] | [address] | [place] [address] | | | SERVICES, CORE | TABITHA [...] (H) | 70 - 99 mg/dL | [facility] - | | | GLUCOSE, [...] + + + | [facility] | [address] | [place], [place] | | | RICARDO POINT OF CARE | [address] | [address] | | | TESTS | | | [...] [facility] | [address] | [place], [place] | | | R[facility]ARDO POINT [facility] CARE | [address] | [address] | | | TESTS | | | | + + + + + X-RAY PORTABLE CHEST 1 VIEW (03/18/2017 6:05 AM PDT) + + | Specimen | + + | | + + + + + | Narrative | Performed At | + + + | EXAM: OH CHEST 1 VIEW HISTORY: ECMO. Evaluate cannula placement. | [facility] | | COMPARISON: Yesterday FINDINGS: Endotracheal tube tip is | RADIOLOGY VOICE | | 2.5 cm above the jefferson. Enteric tube tip in the stomach. [place]-Олег | RECOGNITION | | catheter tip projects [...] Note | + + | Service Account, Ill[employer] In Interface - 03/18/2017 8:39 AM PDT EXAM: OH CHEST 1 | | VIEW HISTORY: ECMO. Evaluate cannula placement.COMPARISON: YesterdayFINDINGS: | | Endotracheal tube tip is 2.5 cm above the jefferson. Enteric tube tip in the stomach. | | [place]-Олег catheter tip projects in the main pulmonary [...] - [facility] | [address] | [place], [place] | | | JULIANN SILVA OF CARE | [address] | [address] | | | TESTS | | | [...] [facility] | [address] | [place], [place] | | | [facility] | [address] | [address] | | | TESTS | | | [...] + + + + + | [facility] | [address] | [place] [address] | | | SERVICES, ИРИНА | TABITHA [...] [facility] | [address] | [place], [place] | | | JULIANN SILVA OF ALEXIS | [facility] | [address] | | | TESTS | | | [...] (H) | 60 - 99 mg/dL | [facility] - | | | GLUCOSE, [...] MARIA | [address] | [place], [place] | | | R[facility]ARDO POINT OF CARE | [address] | [address] | | | TESTS | | | [...] + + + + + | [facility] | [address] | [place] [address] | | | ARASH, | [address] [...] [facility] | [address] | [place] [address] | | | SERVICES, | [address] [...] + + + + | PRODUCT | [id number] | | [facility] | | | UNIT [...] + + + + | EXPIRATION | [id number] | | [facility] | | | DATE [...] + + + + | BLOOD | [id number] | | [facility] | | | PRODUCT [...] + + + + + | [facility] | [address] | [place] [address] | | | SERVICES, | [address] [...] [facility] | [address] | [place], [place] | | | JULIANN SILVA OF [place] | [address] | [address] | | | TESTS | | | [...] | + + + + + | [facility] | [address] | [place] [address] | | | SERVICES, CORE | PARK [...] 10.87 (H) | 3.50 - 10.80 | [facility] | | | COUNT | | K/cu [...] [facility] | [address] | [place] [address] | | | SERVICES, CORE | PARK [...] [facility] | [address] | [place] [address] | | | SERVICES, CORE | TABITHA [...] | + + + + + | [facility] | [address] | [place] [address] | | | SERVICES, CORE | PARK [...] + + + + + | [facility] | [address] | [place] [address] | | | SERVICES, CORE | PARK [...] | + + + + + | [facility] | [address] | [place] [address] | | | SERVICES, CORE | [address] | | | + + + + + MAGNESIUM, PLASMA (03/18/2017 1:19 AM PDT) + +-------+ + + + | Component | Value | Ref Range | Performed | Pathologist | | | | | At | Signature | + +-------+ + + + | MAGNESIUM,P | 2.3 | 1.8 - 2.5 mg/dL | [facility] | | | [facility] | | | [...] + + + + + | [facility] | [address] | [place] [address] | | | SERVICES, CORE | TABITH[address] [...] | + + + + + | [facility] | [address] | [place] [address] | | | SERVICES, CORE | PARK [...] [facility]NA [facility] | [address] | [place], [place] | | | JULIANN SILVA OF [facility] | [facility] | [address] | | | TESTS | | | [...] | + + + + + | [facility] | [address] | [place] [address] | | | SERVICES, ИРИНА | TABITH[address] [...] [facility] | [address] | [place] [address] | | | ARASH, ИРИНА | [address] [...] (H) | 60 - 99 mg/dL | [facility] - | | | GLUCOSE, [...] [facility] | [address] | [place], [place] | | | JULIANN SILVA OF [place] | [facility] | [address] | | | TESTS | | | [...] [facility] | [address] | [place], [place] | | | [facility] | [address] | [address] | | | TESTS | | | [...] [facility] | [address] | [place], [place] | | | JULIANN SILVA OF CARE | [facility] | [address] | | | TESTS | | | [...] MARIA | [address] | [place], [place] | | | JULIANN SILVA OF [facility] | [address] | [address] | | | TESTS | | | [...] + + + + + | [facility] | [address] | [place] [address] | | | SERVICES, CORE | TABITHA [...] [facility] | [address] | [place], [place] | | | JULIANN SILVA OF CARE | [address] | [address] | | | TESTS | | | [...] [facility] | [address] | [place] [address] | | | SERVICES, CORE | PARK [...] [facility] | [address] | [place] [address] | | | SERVICES, CORE | PARK [...] + + + + + | [facility] | [address] | [place] [address] | | | SERVICES, CORE | TABITHA [...] [facility] | [address] | [place] [address] | | | SERVICES, CORE | PARK [...] | + + + + + | [facility] | [address] | [place] [address] | | | SERVICES, CORE | TABITHA [...] (H) | 60 - 99 mg/dL | [facility] - | | | GLUCOSE, [...] + + + | [facility] | [address] | [place], [place] | | | [facility] | [address] | [address] | | | TESTS | | | [...] [facility] | [address] | [place], [place] | | | [facility] | [address] | [address] | | | TESTS | | | [...] | + + + + + | [facility] | [address] | [place] [address] | | | SERVICES, CORE | TABITHA [...] [facility] | [address] | [place], [place] | | | [facility] | [address] | [address] | | | TESTS | | | [...] [facility] | [address] | [place], [place] | | | [facility] | [address] | [address] | | | TESTS | | | [...] + + + + | PRODUCT | [id number] | | [facility] | | | UNIT [...] + + + + | EXPIRATION | [id number] | | [facility] | | | DATE [...] + + + + | BLOOD | [id number] | | [facility] | | | PRODUCT [...] [facility] | [address] | [place] [address] | | | SERVICES, | [address] [...] + + + + | PRODUCT | [id number] | | [facility] | | | UNIT [...] + + + + | EXPIRATION | [id number] | | [facility] | | | DATE [...] + + + + | BLOOD | [id number] | | [facility] | | | PRODUCT [...] | + + + + + | [facility] | [address] | [place] [address] | | | ARASH, | [address] [...] (H) | 60 - 99 mg/dL | [facility] - | | | GLUCOSE, [...] [facility] | [address] | [place], [place] | | | RICARDO POINT OF CARE | [address] | [address] | | | TESTS | | | [...] [facility] | [address] | [place] [address] | | | SERVICESИРИНА | [address] [...] | + + + + + | [facility] | [address] | [place] [address] | | | SERVICES, CORE | PARK [...] [facility] | [address] | [place] [address] | | | ИРИНА ANTOINE | PARK [...] + + + + + | [facility] | [address] | [place] [address] | | | SERVICES, CORE | TABITHA [...] + + + + + | [facility] | [address] | [place] [address] | | | SERVICES, CORE | TABITHA [...] [facility] | [address] | [place] [address] | | | SERVICES, CORE | PARK [...] + + + + + | [facility] | [address] | [place] [address] | | | SERVICES, CORE | TABITHA [...] [facility] | [address] | [place] [address] | | | SERVICES, CORE | PARK [...] ANA [facility] | [address] | [place], [place] | | | [facility] | [address] | [address] | | | TESTS | | | [...] | + + + + + | [facility] | [address] | [place] [address] | | | SERVICES, CORE | TABITHA [...] [facility] | [address] | [place], [place] | | | JULIANN SILVA OF CARE | [address] | [address] | | | TESTS | | | | + + + + + [facility] [...] Note | + + | Service Account, [employer] In Interface - 03/17/2017 6:18 PM PDT [...] Note | + + | Service Account, [employer] Interface - 03/17/2017 6:17 PM PDT [...] [facility] | [address] | [place], [place] | | | R[facility]ARDO POINT OF CARE | [address] | [address] | | | TESTS | | | [...] [facility] | [address] | [place] [address] | | | SERVICES, CORE | TABITHA [...] formed At | + +---- + | Pending Sale To [facility] | [facility] | | [facility] [address] | CAR DIOLOGY | | [place], [place] [address] Ph: | | | Pt Name: RON MCKEON | | | Study Date/Time 03/17/2017 / 10:30:26 AMMRN: [id number] | | | Most recent prior: 03/15/2017Acc #: [id number] | | | No. previous echos: 1DOB: 1955 61 years Heart | | | Rate: 139 bpmHeight: 69.0 in Blood | | | Pressure: 133/83 mm/HgWeight: 258.0 lb | | | Gender: MBSA: 2.30 m2 | | | Order ID: [id number] Roll Grinder: Mauri Domingo LORENZO | | | Referring Provider: Mellisa HajiPatient Location: [facility] | | | Performed: Limited 2D, Color Doppler and Spectral Doppler | | | Limited.Study Quality: Fair.Exam Indication: Heart failure; ECMO; s/p | | | STEMIHistory: 61 year old male with a past medical history significant | | | for hypertension, hyperlipidemia, ongoing tobacco use and | | | pre-diabetes who is transferred to [facility] with cardiogenic shock in the [...] Report electronically | | | signed by: [id number] Jen Ovalle MD, PhD (03/17/2017, 1:53:40 PM) [...] | | | |Report electronically signed by: [id number] Jen Ovalle MD, PhD (03/17/2017, | | |1:53:40 PM) | | | | | | | | | | | | Final | | + +---- + + + | Procedure Note | + + | Interface, Cardiology Results - 03/17/2017 1:53 PM [facility] | | [facility] Ech[facility] Laboratory [address] [place] [address] | | [place], [place] [address] Pt Name: RON Chaudhary | | MIKE Study Date/Time 03/17/2017 / 10:30:26 AMMRN: [id number] Most | | recent prior: 03/15/2017Acc #: [id number] No. previous echos: 1DOB: | | 1955 61 years Heart Rate: 139 bpmHeight: 69.0 in Blood | | Pressure: 133/83 mm/HgWeight: 258.0 lb Gender: MBSA: | | 2.30 m2 Order ID: [id number] Roll Grinder: Mauri Domingo | | RDCSReferring Provider: Mellisa Rubalcava Location: 12KModalities Performed: | | Limited 2D, Color Doppler and Spectral Doppler Limited.Study Quality: Fair.Exam | | Indication: Heart failure; ECMO; s/p STEMIHistory: 61 year old male with a past medical | | history significant for hypertension, hyperlipidemia, ongoing tobacco use and | | pre-diabetes who is transferred to [facility] with cardiogenic shock in the [...] | | Scoring: Report electronically signed by: [id number] Jen Ovalle MD, PhD (03/17/2017, | | [...] | | | |Report electronically signed by: [id number] Jen Ovalle MD, PhD (03/17/2017, | |1:53:40 PM) | | | | | | | | Final | + + + + + + + | Performing | Address | City/State/Zipcode | Phone Number | | Organization | | | | + + + + + | [facility] | [address] | [place], [place] | | | CARDIOLOGY | [address] | [address] | | + + + + + [...] MARR[facility] | [address] | [place], [place] | | | JULIANN SILVA OF CARE | [facility] | [address] | | | TESTS | | | [...] (H) | 60 - 99 mg/dL | [facility] - | | | GLUCOSE, [...] + + + | [facility] | [address] | [place], [place] | | | [facility] | [address] | [address] | | | TESTS | | | [...] LABORATORY | [address] | [place] [address] | | | ИРИНА ANTOINE | TABITHA [...] + + + + + | [facility] | [address] | [place] [address] | | | SERVICES, ИРИНА | TABITHA [...] | + + + + + | [facility] | [address] | [place] [address] | | | SERVICES, CORE | TABITHA [...] (H) | 60 - 99 mg/dL | [facility] - | | | GLUCOSE, [...] [facility] | [address] | [place], [place] | | | JULIANN SILVA OF CARE | [address] | [address] | | | TESTS | | | [...] MARRANDIAM | [address] | [place] | | | JULIANN SILVA OF CARE | [address] | [address] | | | TESTS | | | [...] MARIA | [address] | [place], [place] | | | [facility] | [address] | [address] | | | TESTS | | | [...] + + + + + | [facility] | [address] | [place] [address] | | | SERVICES, CORE | TABITHA [...] [facility] | [address] | [place] [address] | | | SERVICES, CORE | [address] | | | + + + + + X-RAY PORTABLE CHEST 1 VIEW (03/17/2017 5:37 AM PDT) + + | Specimen | + + | | + + + + + | Narrative | Performed At | + + + | EXAM: [place] CHEST 1 VIEW 03/17/17 04:53:29 HISTORY: On [...] Interface - 03/17/2017 9:44 AM PDT EXAM: OH CHEST 1 | | VIEW 03/17/17 04:53:29 [...] [facility] | [address] | [place], [place] | | | JULIANN SILVA OF CARE | [address] | [address] | | | TESTS | | | [...] | + + + + + | [facility] | [address] | [place] [address] | | | SERVICESИРИНА | [address] [...] + + + + + | [facility] | [address] | [place] [address] | | | SERVICES, CORE | PARK [...] [facility] | [address] | [place] [address] | | | SERVICES, CORE | PARK [...] MARIA | [address] | [place], [place] | | | [facility] | [facility] | [address] | | | TESTS | | | [...] [facility] | [address] | [place] [address] | | | SERVICES, CORE | PARK [...] | + + + + + | [facility] | [address] | [place] [address] | | | SERVICES, CORE | TABITHA [...] | + + + + + | [facility] | [address] | [place] [address] | | | SERVICES, CORE | TABITHA [...] + + + + + | [facility] | [address] | [place] [address] | | | SERVICES, CORE | PARK [...] [facility] | [address] | [place] [address] | | | SERVICES, CORE | TABITHA [...] [facility] | [address] | [place] [address] | | | SERVICES, CORE | PARK [...] + + + + + | [facility] | [address] | [place] [address] | | | SERVICES, CORE | TABITHA [...] [facility] | [address] | [place] [address] | | | ИРИНА ANTOINE | TABITHA [...] [facility] | [address] | [place] [address] | | | SERVICES, CORE | TABITHA [...] | + + + + + | [facility] | [address] | [place] [address] | | | SERVICES, CORE | PARK [...] DEPT OF | [address] | [place], [place] | | | CARDIOLOGY | [address] | [address] | | + + + + + BN-HQ-GFR-KARY ISIDRO RT (03/17/2017 12:44 AM PDT) + [...] - [facility] | [address] | [place], [place] | | | JULIANN SILVA OF CARE | [address] | [address] | | | TESTS | | | [...] [facility] | [address] | [place], [place] | | | JULIANN SILVA OF CARE | [address] | [address] | | | TESTS | | | [...] MARIA | [address] | [place], [place] | | | RICARDO POINT OF CARE | [address] | [address] | | | TESTS | | | [...] | + + + + + | [facility] | [address] | [place] [address] | | | SERVICES, CORE | TABITHA [...] (H) | 60 - 99 mg/dL | [facility] - | | | GLUCOSE, [...] [facility] | [address] | [place], [place] | | | JULIANN SILVA OF CARE | [address] | [address] | | | TESTS | | | [...] [facility] | [address] | [place], [place] | | | R[facility]ARDO POINT OF CARE | [address] | [address] | | | TESTS | | | [...] | + + + + + | [facility] | [address] | [place] [address] | | | SERVICES, CORE | TABITHA [...] (H) | 60 - 99 mg/dL | [facility] - | | | GLUCOSE, [...] [facility] | [address] | [place], [place] | | | R[facility]ARDO POINT OF CARE | [address] | [address] | | | TESTS | | | [...] [facility] | [address] | [place] [address] | | | ARASH, ИРИНА | PARK [...] [facility] | [address] | [place], [place] | | | JULIANN SILVA OF CARE | [address] | [address] | | | TESTS | | | [...] (H) | 60 - 99 mg/dL | [facility] - | | | GLUCOSE, [...] [facility] | [address] | [place] | | | [facility] | [address] | [address] | | | TESTS | | | [...] | | verifies correct patient, procedure, equipment, merchandise support associate and | | | site/side marked as [...] [facility] | [address] | [place] [address] | | | SERVICES, CORE | PARK [...] [facility] | [address] | [place] [address] | | | SERVICES, CORE | PARK [...] | + + + + + | [facility] | [address] | [place] [address] | | | SERVICES, CORE | PARK [...] [facility] | [address] | [place] [address] | | | SERVICES, CORE | PARK [...] + + + + + | [facility] | [address] | [place] [address] | | | SERVICES, ИРИНА | TABITHA [...] [facility] | [address] | [place] [address] | | | SERVICES, CORE | PARK [...] + + + + + | [facility] | [address] | [place] [address] | | | SERVICES, CORE | TABITHA [...] [facility] | [address] | [place], [place] | | | RICARDO POINT OF CARE | [address] | [address] | | | TESTS | | | [...] MARIA | [address] | [place], [place] | | | R[facility]O POINT OF CARE | [address] | [address] | | | TESTS | | | [...] [facility] | [address] | [place], [place] | | | JULIANN SILVA OF [facility] | [address] | [address] | | | TESTS | | | [...] [facility] | [address] | [place], [place] | | | R[facility]ARDO POINT OF CARE | [address] | [address] | | | TESTS | | | [...] [facility] | [address] | [place] [address] | | | ИРИНА ANTOINE | PARK [...] + + + + + | [facility] | [address] | [place] [address] | | | SERVICES, ИРИНА | TABITHA [...] - [facility] | [address] | [place], [place] | | | [facility] | [facility] | [address] | | | TESTS | | | [...] | + + + + + | [facility] | [address] | [place] [address] | | | ARASH, ИРИНА | TABITHA [...] MARIA | [address] | [place] | | | [facility] | [address] | [address] | | | TESTS | | | | + + + + + OPERATION RECORD (03/16/2017 9:30 AM PDT) + + | Procedure Note | + + | Dale Mak MD - 03/15/2017 3:42 PM PDT Date of Service: 03/15/2017 Attending | | Surgeon:Ron Powell MD. Social Work Msw(s):Dale Mak MD. | | Preoperative Diagnoses: 1.Cardiogenic [...] The | | patient was transferred to [facility] for further management. At [facility], the patient continued | | [...] cannulation with micropuncture | | wire. A 7-Slovak sheath was placed in an antegrade direction down the SFA for distal | | perfusion. A 19-Slovak arterial cannula was placed in a retrograde [...] 03/15/2017 15:23:00DT: 03/15/2017 15:42:27Job #: | | [id number] | | | |A 19-Slovak arterial cannula was placed in a retrograde [...] |HS/MODL | | | | | | /[id number] | + + CBC (HEMOGRAM) ONLY (03/16/2017 [...] + + + + + | [facility] | [address] | [place] [address] | | | SERVICES, CORE | PARK [...] + + + + + | [facility] | [address] | [place] [address] | | | ИРИНА ANTOINE | TABITHA [...] + + | [facility] | [address] | [place] [address] | | | ИРИНА ANTOINE | TABITHA [...] [facility] | [address] | [place] | | | JULIANN SILVA OF [facility] | [facility] | [address] | | | TESTS | | | [...] [facility] | [address] | [place], [place] | | | R[facility]O POINT OF CARE | [address] | [address] | | | TESTS | | | [...] [facility] | [address] | [place], [place] | | | [facility] POINT OF CARE | [address] | [address] | | | TESTS | | | | + + + + + X-RAY PORTABLE CHEST 1 VIEW (03/16/2017 5:44 AM PDT) + + | Specimen | + + | | + + + + + | Narrative | Performed At | + + + | EXAM: OH CHEST 1 VIEW HISTORY: Evaluate cannula placement. heart | [facility] | | failure. COMPARISON: Yesterday FINDINGS: Endotracheal | RADIOLOGY VOICE | | tube, [place]-Олег catheter and enteric tube remain in place. [...] | + + | Service Account, [employer] In Interface - 03/16/2017 8:27 AM PDT EXAM: OH CHEST 1 | | VIEW HISTORY: Evaluate cannula placement. heart failure.COMPARISON: YesterdayFINDINGS: | | Endotracheal tube, [place]-Олег catheter and enteric tube remain in place. [...] [facility] | [address] | [place], [place] | | | R[facility]ARDO POINT OF CARE | [address] | [address] | | | TESTS | | | [...] [facility] | [address] | [place], [place] | | | R[facility]O POINT OF CARE | [address] | [address] | | | TESTS | | | | + + + + + CF-HK-LFM-HB,POC RT (03/16/2017 3:42 AM PDT) + + [...] [facility] | [address] | [place], [place] | | | JUL[facility]ANN S[facility] [place] | [address] | [address] | | | TESTS | | | [...] ANA MARIA | [address] | [place], [place] | | | [facility] | [facility] | [address] | | | TESTS | | | [...] [facility] | [address] | [place] [address] | | | SERVICES, CORE | PARK [...] MARIA | [address] | [place], [place] | | | [facility] | [address] | [address] | | | TESTS | | | [...] | + + + + + | [facility] | [address] | [place] [address] | | | SERVICES, CORE | TABITHA [...] [facility] | [address] | [place] [address] | | | SERVICES, CORE | PARK [...] | + + + + + | [facility] | [address] | [place] [address] | | | SERVICES, CORE | TABITHA [...] [facility] | [address] | [place] [address] | | | SERVICES, CORE | PARK [...] [facility] | [address] | [place] [address] | | | SERVICES, CORE | PARK [...] | + + + + + | [facility] | [address] | [place] [address] | | | ИРИНА ANTOINE | TABITHA [...] | + + + + + | [facility] | [address] | [place] [address] | | | SERVICES, CORE | TABITHA [...] (H) | 60 - 99 mg/dL | [facility] - | | | GLUCOSE, [...] + + + | [facility] | [address] | [place], [place] | | | RICARDO POINT OF CARE | [address] | [address] | | | TESTS | | | [...] [facility] | [address] | [place] [address] | | | SERVICES, CORE | TABITHA [...] ANA MARIA | [address] | [place] | | | R[facility]O POINT OF CARE | [address] | [address] | | | TESTS | | | [...] + + + + + | [facility] | [address] | [place] [address] | | | SERVICES, CORE | TABITHA [...] + + + + + | [facility] | [address] | [place] [address] | | | ИРИНА ANTOINE | [address] | | | + + + + + UR-EU-JGW-HB,POC RT (03/16/2017 12:22 AM PDT) + + [...] [facility] | [address] | [place] | | | JULIANN SILVA OF CARE | [address] | [address] | | | TESTS | | | [...] [facility] | [address] | [place], [place] | | | R[facility]ARDO POINT OF CARE | [address] | [address] | | | TESTS | | | [...] [facility] | [address] | [place], [place] | | | R[facility]ARDO POINT OF CARE | [address] | [address] | | | TESTS | | | [...] [facility] | 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 | [place], [place] | | | JULIANN SILVA OF CARE | [facility] | [address] | | | TESTS | | | [...] [facility] | [address] | [place], [place] | | | R[facility]O POINT OF CARE | [address] | [address] | | | TESTS | | | [...] [facility] | [address] | [place] [address] | | | ИРИНА ANTOINE | TABITHA [...] + + + + + | [facility] | [address] | [place] [address] | | | ARASH, ИРИНА | TABITHA [...] + + + + + | [facility] | [address] | [place] [address] | | | SERVICES, ИРИНА | TABITHA [...] | | | laryngopharynx plus edema. A Sossee Air[employer] catheter was | | | [...] [facility] | [address] | [place], [place] | | | JULIANN SILVA OF CARE | [facility] | [address] | | | TESTS | | | | + + + + + LC-MC-QXB-HB,POC RT (03/15/2017 7:39 PM PDT) + + [...] [facility] | [address] | [place], [place] | | | RICARDO POINT OF CARE | [address] | [address] | | | TESTS | | | [...] [facility] | [address] | [place], [place] | | | JULIANN SILVA OF CARE | [address] | [address] | | | TESTS | | | [...] (H) | 60 - 99 mg/dL | [facility] - | | | GLUCOSE, [...] [facility] | [address] | [place], [place] | | | JULIANN SILVA OF [place] | [address] | [address] | | | TESTS | | | | + + + + + X-RAY PORTABLE CHEST 1 VIEW (03/15/2017 5:51 PM PDT) + + | Specimen | + + | | + + + + + | Narrative | Performed At | + + + | STUDY: OH CHEST 1 VIEW 03/15/17 17:40:08 COMPARISON: 03/15/17 [...] Note | + + | Service Account, [employer] In Interface - 03/15/2017 6:20 PM PDT STUDY: OH CHEST 1 | | VIEW 03/15/17 17:40:08COMPARISON: [...] by: Power of | | | criminal defense attorney Patient identity confirmed per policy: Yes Team Pause: | | | Immediatly prior to the procedure a pause per protocol was called. A | | | pause verifies correct patient, procedure, equipment, merchandise support associate | | | and site/side [...] modified Seldinger technique | | | (a ngzqfmqt-ecqr-anb-qtdguh-nmcx-nytm-xocbfor-dpk-gonjrldj) was used | | | for vessel cannulation. Fluid manometry was used to confirm venous | | | cannulation and The wire was visualized with ultrasound in the | | | correct target vessel. Ultrasound images printed and will be scanned | | | into EMR A non-tunneled Double-Lumen Introducer Sheath (Imagry) | | | (size of 8.5 Fr) [...] Jose Ramon Alvarado | | | R2, [facility] Emergency Medicine Personal Pager: [phone] | | | | | + + [...] | + + + + + | [facility] | [address] | [place] [address] | | | ИРИНА ANTOINE | PARK [...] [facility] | [address] | [place], [place] | | | [facility] | [address] | [address] | | | TESTS | | | [...] [facility] | [address] | [place], [place] | | | J[facility]ANN S[facility] | [address] | [address] | | | TESTS | | | | + + + + + X-RAY PORTABLE CHEST 1 VIEW (03/15/2017 4:03 PM PDT) + + | Specimen | + + | | + + + + + | Narrative | Performed At | + + + | EXAM: OH CHEST 1 VIEW 03/15/17 15:42:37 HISTORY: ECMO [...] Interface - 03/15/2017 6:18 PM PDT EXAM: OH CHEST 1 | | VIEW 03/15/17 15:42:37 [...] MARIA | [address] | [place], [place] | | | JULIANN SILVA OF CARE | [facility] | [address] | | | TESTS | | | [...] (H) | 60 - 99 mg/dL | [facility] - | | | GLUCOSE, [...] RODGERS | [address] | [place], [place] | | | JULIANN SILVA OF CARE | [facility] | [address] | | | TESTS | | | [...] MARQUAM | [address] | [place], [place] | | | JULIANN SILVA OF CARE | [address] | [address] | | | TESTS | | | [...] [facility] | [address] | [place] [address] | | | ИРИНА ANTOINE | PARK [...] + + + + + | [facility] | [address] | [place] [address] | | | SERVICES, CORE | TABITHA [...] [facility] | [address] | [place] [address] | | | ИРИНА ANTOINE | TABITHA [...] [facility] | [address] | [place] [address] | | | SERVICES, CORE | PARK [...] + + + + + | [facility] | [address] | [place] [address] | | | SERVICES, ИРИНА | TABITHA [...] Professor and Chief Division of Cardiothoracic Surgery [facility] | | | [facility] - Mail Code [id number] [facility] | | | [place] [id number] | | + + + X-RAY PORTABLE CHEST 1 VIEW (03/15/2017 2:32 PM PDT) + + | Specimen | + + | | + + + + + | Narrative | Performed At | + + + | STUDY: OH CHEST 1 VIEW 03/15/17 14:21:08 COMPARISON: 03/15/17. [...] Interface - 03/15/2017 2:46 PM PDT STUDY: OH CHEST 1 | | VIEW 03/15/17 14:21:08COMPARISON: [...] + + + + | PRODUCT | [id number] | | [facility] | | | UNIT [...] + + + + | EXPIRATION | [id number] | | [facility] | | | DATE [...] + + + + | BLOOD | [id number] | | [facility] | | | PRODUCT [...] | + + + + + | [facility] | [address] | [place] [address] | | | SERVICES, | [address] [...] + + + + | PRODUCT | [id number] | | [facility] | | | UNIT [...] + + + + | EXPIRATION | [id number] | | [facility] | | | DATE [...] + + + + | BLOOD | [id number] | | [facility] | | | PRODUCT [...] | + + + + + | [facility] | [address] | [place] [address] | | | SERVICES, | [address] [...] + + + + | PRODUCT | [id number] | | [facility] | | | UNIT [...] + + + + | EXPIRATION | [id number] | | [facility] | | | DATE [...] + + + + | BLOOD | [id number] | | [facility] | | | PRODUCT [...] [facility] | [address] | [place] [address] | | | SERVICES, | [address] [...] + + + + | PRODUCT | [id number] | | [facility] | | | UNIT [...] + + + + | EXPIRATION | [id number] | | [facility] | | | DATE [...] + + + + | BLOOD | [id number] | | [facility] | | | PRODUCT [...] [facility] | [address] | [place] [address] | | | ARASH | [address] | | | | [facility]SF[facility] MEDIC[facility] | | | | + + + + + [id number] RT (03/15/2017 1:23 PM PDT) + + [...] MARIA | [address] | [place], [place] | | | JULIANN SILVA OF CARE | [address] | [address] | | | TESTS | | | [...] MARIA | [address] | [place], [place] | | | JULIANN SILVA OF [facility] | [address] | [address] | | | TESTS | | | [...] Performed At | + + + | Pending Sale To [facility] | [facility] DEPT OF | | [facility] Adult Echocardiography Laboratory [address] | CARDIOLOGY | | [place], [place] [address] Ph: | | | Pt Name: RON MCKEON | | | Study Date/Time 03/15/2017 / 12:54:21 PMMRN: [id number] | | | Most recent prior: -Acc #: [id number] | | | No. previous echos: 0DOB: 1955 61 years Heart Rate: | | | 145 bpmHeight: Blood Pressure: | | | 90/67 mm/HgWeight: 249.0 lb Gender: | | | MBSA: 2.34 m2 Order ID: | | | [id number] Roll Grinder: Vahid NOBLES Referring Provider: | | | [...] Report | | | electronically signed by: [id number] Yajaira Johnson MD (03/15/2017, | | | [...] | | | |Report electronically signed by: [id number] Yajaira Johnson MD (03/15/2017, 3:38:52 PM) | | | | | | | | | | | | Final | | + + + + + | Procedure Note | + + | Interface, Cardiology Results - 03/15/2017 3:38 PM [facility] | | [facility] Echocardiography Laboratory [address] [place] [address] | | [place], [place] [address] Pt Name: RON MCKEON Study Date/Time 03/15/2017 / 12:54:21 PMMRN: [id number] Most | | recent prior: -Acc #: [id number] No. previous echos: 0DOB: 1955 61 | | years Heart Rate: 145 bpmHeight: Blood Pressure: 90/67 | | mm/HgWeight: 249.0 lb Gender: MBSA: 2.34 m2 | | Order ID: [id number] Roll Grinder: Vahid Parmar RCSReferring Provider: | | Gaurav [...] values Report electronically signed by: | | [id number] Yajaira Johnson MD (03/15/2017, 3:38:52 PM) Final [...] | | | |Report electronically signed by: [id number] Yajaira Johnson MD (03/15/2017, 3:38:52 PM) | | | | | | | | Final | + + + + + + + | Performing | Address | City/State/Zipcode | Phone Number | | Organization | | | | + + + + + | [facility] | [address] | [place], [place] | | | CARDIOLOGY | [address] | [address] | | + + + + + X-RAY PORTABLE CHEST 1 VIEW (03/15/2017 12:46 PM PDT) + + | Specimen | + + | | + + + + + | Narrative | Performed At | + + + | STUDY: [place] CHEST 1 VIEW 03/15/17 12:12:08 COMPARISON: None. [...] Interface - 03/15/2017 1:10 PM PDT STUDY: [place] CHEST 1 | | VIEW 03/15/17 12:12:08COMPARISON: [...] [facility]KET OF | [address] | [place], [place] | | | CARDIOLOGY | [address] | [address] | | + + + + + [...] | + + + + + | [facility] | [address] | [place] [address] | | | SERVICES, | [address] [...] [facility] | [address] | [place] [address] | | | SERVICES, | [address] [...] | + + + + + | [facility] | [address] | [place] [address] | | | SERVICES, CORE | [address] [...] + + + + + | [facility] | [address] | [place] [address] | | | SERVICES, CORE | [address] [...] [facility] | [address] | [place] [address] | | | SERVICES, | [address] [...] [facility] | [address] | [place] [address] | | | ИРИНА ANTOINE | [address] [...] + + + + + | [facility] | [address] | [place] [address] | | | SERVICES, CORE | [address] [...] [facility] | [address] | [place] [address] | | | SERVICES, CORE | [address] [...] + + + + + | [facility] | [address] | [place] [address] | | | SERVICES, CORE | [address] | | | + + + + + GD-NE-UNN-KARY ISIDRO RT (03/15/2017 12:16 PM PDT) + [...] - NINOSKALAISHA | [address] | [place], [place] | | | RICARDO [facility] [facility] | [address] | [address] | | | TESTS | | | [...] of unspecified type of vessel, | | [place] or graft | + + | Tongue [...] 5:37 | | | | | dose, [place] 03/29/17 at 0530 | | AM PDT [...] | | | ONCE, 1 dose, [facility] 03/19/17 at 1415 | | PM PDT [...] PDT | | | | | dose, [place] 03/15/17 at 2100 | | | | | | + +-------+ +---------+---+---+ +---+---+ | | | +---+---+ + +-------+ +--------+---+---+ | cisatracurium (NIMBEX) | Given | 03/15/20 | 2,000 | | | | injection 1 dose, Starting Thu 1:52 | mcg | | | | 03/15/17 at 1345, Until [place] 03/15/17 | | PM PDT | | [...] | | DAILY, First dose on [facility] 03/19/17 | | AM PDT | | [...] 4:00 | | | | | dose, [facility] 03/18/17 at 1615 | | PM PDT | | | | + +-------+ +-------+---+---+ +---+---+ | | | +---+---+ + +-------+ +-------+---+---+ | furosemide (LASIX) injection 20 | Given | 03/19/20 | 20 mg | | | | mg 20 mg, intravenous, ONCE, 4:45 | | | | | dose, [facility] 03/19/17 at 1630 | | PM PDT [...] 8:53 | | | | | dose, [facility] 03/18/17 at 0830 | | AM PDT | | | | + +-------+ +-------+---+---+ +---+---+ | | | +---+---+ + +-------+ +-------+---+---+ | furosemide (LASIX) injection 40 | Given | 03/19/20 | 40 mg | | | | mg 40 mg, intravenous, ONCE, | 10:20 | | | | | dose, [facility] 03/19/17 at 1100 | | AM PDT [...] mg, intramuscular, | | | NEEDED, Starting [facility] 03/24/17 at | | | 1120, Until [facility] 04/02/17 at 2030, | | | CBG less than 70 mg/dL per Adult | | | Hypoglycemia Protocol | | + +---+ | | | + +---+ | glucose chewable tablet 16 g | | | 16 g, oral, NEEDED, Starting | | | [facility] 03/24/17 at 1120, Until Radha | | [...] | | | | | Starting [facility] 03/19/17 at 1900, | | | | [...] | | | | NEEDED, Starting [facility] 03/26/17 at | | | | | [...] | | | | | Until [facility] 04/02/17 at 2030, severe | | | [...] | | | | ONCE, 1 dose, [facility] 03/20/17 at 0400 | | AM [...] | | | | | CONTINUOUS, Starting [place] 03/15/17 | | | | | | | at 1245, Until [place] 03/15/17 at 1547 | | | | [...] | | | | | | | [place] 03/22/17 at 0400 | | | | [...] last | | | modification) on [facility] 04/02/17 at | | | 2100, Until [...] | | | | | modification) on [place] 03/29/17 at | | | | | [...]
--- OUTSIDE RECORDS SUMMARY | ~2020-03-04 | XMS | Encounter Summary ---
Demographics + + + | Address | [address] | | | [place] [address] | + + + | Home Phone [...] [place], [place] | | | | | [address] | | + + + + + Care Team Providers + +------+ + | Care Cuff Folder Name | Role | Phone | + [...] | (severe) (HCC) | | | | [place], [place] | [address] [place], [place] | (Primary Dx); Anemia | | | | [address] | [address] | in chronic kidney | | | | [phone] | | disease, unspecified | | | [...] this encounter Progress Sharon Aguilar RN - 01/26/2019 1:58 PM PDTLabs for upcoming nephrology appointment sent to: [facility] Everywhere 05/04/18 Charleyectronically signed by Sharon Saldana RN at 01/27/20 19 2:08 PM PDTdocumented in this encounter Plan of [...] [place] | | | | | | [address] | | | | | | | | +--------+ + + + + | 04/16/ | Office | Cardiology | Alin Anderson | | | 2019 | Visit | | MD [address] | | | | | | [address] | | | | | | [place] [address] | | | | | | [phone] | | | | | | | | +--------+ + + + + | 04/16/ | Procedure | Cardiology | | | | 2019 | visit | | | | +--------+ + + + + | 04/25/ | Office | Cardiology | Rocio Pearl, | | | 2019 | Visit | | MD Cheryl URENA | | | | | | [facility] [place] | | | | | | [address] | | | | | | | [...]
--- OUTSIDE RECORDS SUMMARY | ~2020-03-04 | XMS | Encounter Summary ---
Demographics + + + | Address | [address] | | | [place] [address] | + + + | Home Phone [...] [place] | | | | | [address] | | + + + + + Care Team Providers + +------+ + | Care Leather Dresser Name | Role | Phone | + [...] [place] | | | | | [facility] [place] | [address] | | | | | [address] | | | | | | [phone] | | | +--------+ + + + [...] [place] | | | | | | [address] | | | | | | | | +--------+ + + + + | 04/16/ | Office | Cardiology | Alin Anderson | | | 2019 | Visit | | MD Cheryl Arreguin | | | | | | [address] | | | | | | [place] [address] | | | | | | [phone] | | | | | | | [...] [place] | | | | | | [address] | | | | | | | [...] 0.86 | | | m/s MV Dec Fleming: 3.26 m/s2 MV DecT: 218.32 ms MV E Rohan: | | | 0.71 m/s MV E/A Ratio: 0.82 MV PHT: 63.31 ms MVA By PHT: | | | 3.47 cm2 Septal e': 0.04 m/s Septal E/e': 15.51 Lateral e': | | | 0.06 m/s Lateral E/e': 10.91 RAP: 5 mmHg RVSP: 26.47 | | | mmHg TR maxP.47 mmHg TR Vmax: 2.31 m/s Video Camera Operator: | | | DBS Authenticated by: [...] cmLVPWd: 1.01 cmLVOT | | Area: 3.17 [id number] Diam: 2.01 cm%FS: 15.56 %EF(Teich): 32.30 %ESV(Teich): [...] | Index (A-L): 42.88 ml/m2LAAs A2C: 24.92 [id number] A-L A2C: 95.08 mlLALs A2C: 5.54 | | cmLAAs A4C: 19.37 [id number] A-L A4C: 70.66 mlLALs A4C: 4.50 cmRAAs: 18.79 | | [id number] A-L: 67.38 mlRAESV MOD: 63.17 mlRALs: 4.44 cmTAPSE: 2.12 cmAV maxPG: | | 6.82 mmHgAV meanP.56 mmHgAV Vmax: 1.30 m/Emil Vmean: 0.88 m/Emil VTI: 25.33 | | cmAVA Vmax: 2.55 cm2AVA (VTI): 2.49 [id number] (Vmax): 0.00 cm2/m2AVAI (VTI): 0.00 | | cm2/m2LVOT maxP.40 mmHgLVOT meanP.91 mmHgLVSI Dopp: 29.85 ml/m2LVSV Dopp: | | 63.29 mlLVOT Vmax: 1.04 m/sLVOT Vmean: 0.64 m/sLVOT VTI: 19.92 cmMV A Rohan: | | 0.86 m/sMV Dec Fleming: 3.26 m/s2MV DecT: 218.32 msMV E Rohan: 0.71 m/sMV E/A Ratio: | | 0.82MV PHT: 63.31 msMVA By PHT: 3.47 rr5Whpkid e': 0.04 m/sSeptal E/e': | | 15.51Lateral e': 0.06 m/sLateral E/e': 10.91RAP: 5 mmHgRVSP: 26.47 mmHgTR maxPG: | | 21.47 mmHgTR Vmax: 2.31 m/s Video Camera Operator: DBSAuthenticated by: Rocio | | [facility] Date/Time: 11-04-2018 19:16:25 IMPRESSION: 1. This was [...] A Rohan: 0.86 m/s | |MV Dec Fleming: 3.26 m/s2 | |MV DecT: 218.32 ms [...] |TR Vmax: 2.31 m/s | | | |Video Camera Operator: DBS | |Authenticated by: Rocio Pearl [...]
--- OUTSIDE RECORDS SUMMARY | ~2020-03-04 | XMS | Encounter Summary ---
Demographics + + + | Address | [address] | | | [place] [address] | + + + | Home Phone [...] [place] | | | | | [address] | | + + + + + Care Team Providers + +------+ + | Care Web Merchant Name | Role | Phone | + [...] | | Atherosclero | MD Lauro | [address] [place] [address] | | | | | tic heart | [address] | [address] | | | | | disease of | [address] | [place], | | | | | mechoopda | [place], | [place] [address] | | | | | coronary | [place] | Phone: | | | | | artery | [address] | [phone] | | | | | without | Phone: | Fax: | | | | | angina | [phone] | [phone] | | | | | pectoris ST | Fax: | | | | | | elevation | [phone] | | | | | | (STEMI) [...] + + | 06/10/ | Office | [facility] | [place], | Abdominal aortic | | 2018 | Visit | CARDIOLOGY [address] | [address] | aneurysm (AAA) | | | | [address] [place], | [address], | without rupture | | | | [place] [address] | [place] [address] | (HCC) (Primary Dx); | | | | [phone] | [phone] | Acute anterior wall | | | | | | ME (HCC); Acute on | | | | [...] involving | | | | | | mechoopda coronary | | | | | | artery of mechoopda | | | | | | heart [...] | | | | | | ; INFANT BABYSITTER-D (AICD) | | | | | | [employer]tronic 10/16/17 | | | | | | EULOGIO Darby; | | | | | | Atherosclerosis of | | | | | | mechoopda coronary | | | | | | artery of mechoopda | | | | | | heart [...] artery disease post rece nt anterior wall ME, post PTCA and stents of the left main, LAD and LCx on 03/15/17, cardiac s hock, left atrial appendage thrombus, recent status post stents to, INFANT BABYSITTER-D placement in [facility] on 10/17/2017. He is being seen [...] with patient having increase in sodium consumption. aDrshan reyes has not been lightheaded or dizzy. [...] He was going to start going to [facility] rehabilitation but he states today that he was denied by insurance. He has been trying to stay active around the house. He has not felt any shocking from his INFANT BABYSITTER-D device MEDICAL, SURGICAL, AND PERSONAL HISTORY Past Medical, Surgical, Family, and Social History are reviewed in EPIC. CURRENT PROBLEMS Patient Active Problem List Diagnosis Acute anterior wall ME Coronary artery disease involving mechoopda coronary artery of mechoopda heart without angina pectoris Ischemic cardiomyopathy INFANT BABYSITTER-D (AICD) [employer] 10/16/17 [facility] Stecker Implantable defibrillator reprogramming/check H/O atrial [...] 3 0 tablet 5 Cholecalciferol (VITAMIN D-3) 92398 units CAPS Take by mouth Once a [...] kg (218 lb 11.1 oz) | B ME 31.38 kg/m Physical Exam Constitutional: He is [...] Interval:176 ms P Duration:196 ms P Horizontal Cortland:-6 deg P Front [place]:72 deg Q Onset:508 ms QRSD Interval:148 ms QT Interval:500 ms QTcB:508 ms QTcF:505 ms QRS Horizontal Cortland:217 deg QRS Cortland:167 deg I-40 Horizontal Cort[place]:188 deg I-40 Front [place]:148 deg T-40 Horizontal [place]:231 deg T-40 Front [place]:163 deg T Horizontal [place]: deg T Wave [place]:15 deg S-T Horizontal [place]:67 deg S-T Front [place]:-59 deg Severity:- ABNORMAL ECG - INTERP:ATRIAL-SENSED VENTRICULAR-PACED COMPLEXES Electronically signed by: , 05-20-2018 05:48:28 LAB RESULTS reviewed during visit today primarily from [facility]: LIPID Lab Results Component Value [...] PLTEX 171 04/22/2018 I reviewed records from [facility] for office visit on 04/09/2018 w [...] shock requiring IABP, pressor (dop amine, norepinephrine). [facility] and [facility] were on divert. Patient wasn' t transferred to [facility] [...] there is no significant changes C. At [facility], patient had another STEMI code 03/29, [...] to follow up closely with a local political director in [place] . He wias dischargeed with a LifeVest [...] y we will transfer the patient to [facility] for consideration of urgent coronary revascularizatio [...] He is in class III of the [employer] functional class. Heart failure stage [...] in the se regions. C. S/P [employer] INFANT BABYSITTER-D 10-16-17 Dr Darby, [facility]. Ice interrogation today shows one episode [...] is in class III o f the [employer] functional class. Heart failure stage C. There are decrease d breath sounds, no JVD, no leg swelling. 3. Ventricular tachycardia: A. Electrophysiology Study 10/16/17 shows positive EP study for induc ible ventricular tachycardia. B.In remote interrogation he had 65 episodes of treated VT. He is not on any an tiarrhythmic. He is going to be seen in [place] so we will let EP know about [...] week ago. Viry mustafa was after his ME and at the same time patient was having ventricular tachycardia. He was initiated on amiodarone and then discontinued before discharge. The plan is to monitor thro ugh his device and see if this is a problem that needs to be addressed. Patient is not on anticoagulation he was left that way from [facility]. Patient has had several GI bleeds [...] seeing the advanced heart failure team at [facility] next week. We will contact EP to see if he can see patient for increasing episodes of ventricular tach ycardia that had been terminated with ATP. In remote interrogation he had 65 episodes of saúl ated VT. He is not on any antiarrhythmic at the moment. He is going to be seen in [facility] o we will let EP know about it so they can assist with recommendations about treatment . He may be a candidate for amiodarone. 5. He will follow up in 2-4 weeks, or sooner with concerns. Portions of this chart may have been created with Yedda voice recognition software. Occasi onal wrong-word or [...] | | | | | [address] [facility] | | | | | | [address] [place] | | | | | | [id number] | | | | | | | | +--------+ + + + + | 04/16/ | Office | Cardiology | Monica Alin | | | 2019 | Visit | | MD Cheryl Arreguin | | | | | | [address] | | | | | | [place] [address] | | | | | | [phone] | | | | | | | [...] [place] | | | | | | [address] | | | | | | | | +--------+ + + + + documented as of this encounter Visit Diagnoses + + | Diagnosis | + + | Abdominal aortic aneurysm (AAA) without rupture (HCC) - Primary | + + | Acute anterior wall ME (HCC) Acute myocardial infarction of other anterior wall, | | episode of care unspecified | + + | Acute on chronic systolic congestive heart failure (HCC) Acute on chronic systolic | | heart failure | + + | Benign essential hypertension Essential hypertension, benign | + + | Coronary artery disease involving mechoopda coronary artery of mechoopda heart without | | angina pectoris | + + | PAD (peripheral artery disease) (HCC) Unspecified disorders of arteries and | | arterioles | + + | Mixed hyperlipidemia | + + | Ischemic cardiomyopathy Other specified forms of chronic ischemic heart disease | + + | Hypercholesterolemia Pure hypercholesterolemia | + + | INFANT BABYSITTER-D (GABBI) [employer] 10/16/17 EULOGIO Darby | + + | Atherosclerosis of mechoopda coronary artery of mechoopda heart with stable angina pectoris | | (HCC) | + + documented in this encounter
--- OUTSIDE RECORDS SUMMARY | ~2020-03-04 | XMS | Encounter Summary ---
Demographics + + + | Address | [address] | | | [place] [address] | + + + | Home Phone [...] [place] | | | | | [address] | | + + + + + Care Team Providers + +------+ + | Care Dock Operations Supervisor Name | Role | Phone [...] + | 08/15/ | Telephone | [facility] | Randy Figueroa, | Other ([facility]) | | 2019 | | CARDIOLOGY [address] | | | | | [place], | [place], | | | | | [place] [address] | [place] [address] | | | | | [phone] | [phone] | | | | | | | [...] has been following with Dr Anderson at [facility], so remotes are released to them. Electronically [...] F | | | | | | [place] [address] | | | | | | [phone] | | | | | | | [...] [place] | | | | | | [address] | | | | | | | | +--------+ + + + + documented as of this encounter Visit Diagnoses Not on filedocumented in this encounter"
--- OUTSIDE RECORDS SUMMARY | ~2020-03-04 | XMS | Encounter Summary ---
Demographics + + + | Address | [address] | | | [place] [address] | + + + | Home Phone [...] [place] | | | | | [address] | | + + + + + Care Team Providers + +------+ + | Care Bursar Name | Role | Phone | + [...] [address] | | | | | | [address] | [place], | | | | | | [place], | [place] [address] | | | | | | [place] | Phone: | | | | | | [address] | [phone] | | | | | | Phone: | Fax: | | | | | | [phone] | [phone] | | | | | | Fax: | | | | | | | [phone] | | +--------+ + + + + + Encounter Details +--------+---------+ + + + | Date | Type | Department | Care Team | Description | +--------+---------+ + + + | 08/12/ | Office | [facility] | Edgar Augustin MD | Rhinorrhea (Primary | | 2018 | Visit | OTOLARYNGOLOGY [address] | [address] | Dx) | | | | [address] | [address] | | | | | [place] | [place] [address] | | | | | [address] | [phone] | | | | | [phone] | | | +--------+---------+ + + + [...] | | | | [address] [place] [place] | | | | | | [address] | | | | | | | | +--------+ + + + + | 04/16/ | Office | Cardiology | Alin Anderson | | | 2019 | Visit | | MD [address] | | | | | | [address] | | | | | | [place] [address] | | | | | | [phone] | | | | | | | [...] [place] | | | | | | [address] | | | | | | | [...]
--- OUTSIDE RECORDS SUMMARY | ~2020-03-04 | XMS | Encounter Summary ---
Demographics + + + | Address | [address] | | | [place] [address] | + + + | Home Phone [...] [place] | | | | | [address] | | + + + + + Care Team Providers + +------+ + | Care Technical Delivery Manager Name | Role | Phone | [...] | | | heart | [place], | [place] | | | | | failure | [place] [address] | [address] | | | | | (HCC) | Phone: | [address] | | | | | I50.22 | [phone] | Phone: | | | | | Procedures | Fax: | [phone] | | | | | Cardiac | [phone] | Fax: | | | | | Rehab | | [phone] | +--------+--------+ + + + + Encounter [...] [address] [place], [place] | failure) ([facility]) | | | | [address] | [id number] | | | | | [place] [address] | | | | | | [phone] | | | +--------+---------+ + + + [...] Gael Ortega - 07/07/2019 12:00 PM PDT [facility] [address] [place] [address] Cardiac Rehab Date: 07/07/2019 Patient Information Patient Name: Bob Will Date of : 1955 Age: 63 y.o. Encounter Diagnoses Code Name Primary? I50.22 Chronic systolic CHF (congestive heart failure) ([facility]) Number of Visits Approved: 34 kx Taken [...] [place] | | | | | | [id number] | | | | | | | | +--------+ + + + + | 04/16/ | Office | Cardiology | Alin Anderson | | | 2019 | Visit | | MD Cheryl Arreguin | | | | | | [address] | | | | | | [place] [address] | | | | | | [phone] | | | | | | | [...] [place] | | | | | | [address] | | | | | | | | +--------+ + + + + documented as of this encounter Visit Diagnoses + + | Diagnosis | + + | Chronic systolic CHF (congestive heart failure) (HCC) | + + documented in this encounter"
--- OUTSIDE RECORDS SUMMARY | ~2020-03-04 | XMS | Encounter Summary ---
Demographics + + + | Address | [address] | | | [place] [address] | + + + | Home Phone [...] [place], [place] | | | | | [address] | | + + + + + Care Team Providers + +------+ + | Care Registered Respiratory Therapist Name | Role | Phone | + +------+ + PCP | Unavailable | + +------+ + Encounter Details +--------+ + + + + | Date | Type | Department | Care Team | Description | +--------+ + + + + | 04/06/ | Abstract | [facility] | Randy Figueroa, | Coronary artery | | 2017 | | CARDIOLOGY [address] [place] | disease, angina | | | | [place], | [place], | presence | | | | [place] [address] | [place] [address] | unspecified, | | | | [phone] | [phone] | unspecified vessel | | | | | | or lesion type, | | | | | | unspecified whether | | | | | | tanacross or | | | | | | [...] | | | | | [place] [address] | | | | | | [phone] | | | | | | | [...] [place] | | | | | | [address] | | | | | | | | +--------+ + + + + documented as of this encounter Procedures + +--------+ + + + | Procedure Name | Priori | Date/Time | Associated Diagnosis | Comments | | | ty | | | | + +--------+ + + + | EXTERNAL LAB: DONTE | Routin | 03/15/2017 | | Results for this | | | e | | | procedure are in the | | | | | | results section. | + +--------+ + + + | EXTERNAL LAB: | Routin | 03/15/2017 | | Results for this | | GLUCOSE | e | | | procedure are in the | | | | | | results section. | + +--------+ + + + | EXTERNAL LAB: | Routin | 03/15/2017 | | Results for this | | TROPONIN T | e | | | procedure are in the | | | | | | results section. | + +--------+ + + + | EXTERNAL LAB: ALT | Routin | 03/15/2017 | | Results for this | | | e | | | procedure are in the | | | | | | results section. | + +--------+ + + + | EXTERNAL LAB: AST | Routin | 03/15/2017 | | Results for this | | | e | | | procedure are in the | | | | | | results section. | + +--------+ + + + | EXTERNAL LAB: | Routin | 03/15/2017 | | Results for this | | ALKALINE PHOSPHATASE | e | | | procedure are in the | | | | | | results section. | + +--------+ + + + | EXTERNAL LAB: | Routin | 03/15/2017 | | Results for this | | BILIRUBIN, TOTAL | e | | | procedure are in the | | | | | | results section. | + +--------+ + + + | EXTERNAL LAB: | Routin | 03/15/2017 | | Results for this | | ALBUMIN | e | | | procedure are in the | | | | | | results section. | + +--------+ + + + | EXTERNAL LAB: | Routin | 03/15/2017 | | Results for this | | PROTEIN, TOTAL | e | | | procedure are in the | | | | | | results section. | + +--------+ + + + | EXTERNAL LAB: | Routin | 03/15/2017 | | Results for this | | CALCIUM | e | | | procedure are in the | | | | | | results section. | + +--------+ + + + | EXTERNAL LAB: CARBON | Routin | 03/15/2017 | | Results for this | | DIOXIDE | e | | | procedure are in the | | | | | | results section. | + +--------+ + + + | EXTERNAL LAB: | Routin | 03/15/2017 | | Results for this | | CHLORIDE | e | | | procedure are in the | | | | | | results section. | + +--------+ + + + | EXTERNAL LAB: | Routin | 03/15/2017 | | Results for this | | POTASSIUM | e | | | procedure are in the | | | | | | results section. | + +--------+ + + + | EXTERNAL LAB: SODIUM | Routin | 03/15/2017 | | Results for this | | | e | | | procedure are in the | | | | | | results section. | + +--------+ + + + | EXTERNAL LAB: CBC | Routin | 03/15/2017 | | Results for this | | | e | | | procedure are in the | | | | | | results section. | + +--------+ + + + | EXTERNAL LAB: EGFR | Routin | 03/15/2017 | | Results for this | | | e | | | procedure are in the | | | | | | results section. | + +--------+ + + + | EXTERNAL LAB: | Routin | 03/15/2017 | | Results for this | | CREATININE | e | | | procedure are in the | | | | | | results section. | + +--------+ + + + | CBC WITH | Routin | 03/15/2017 | | Results for this | | DIFFERENTIAL | e | | | procedure are in the | | | | | | results section. | + +--------+ + + + | COMPREHENSIVE | Routin | 03/15/2017 | | Results for this | | METABOLIC PANEL | e | | | procedure are in the | | | | | | results section. | + +--------+ + + + documented in this encounter Results CBC with Differential (03/15/2017) + +-------+ + + + | Component | Value | Ref Range | Performed | Pathologist | | | | | At | Signature | + +-------+ + + + | MCHC | 35.0 | 30.0 - 36.0 % | | | + +-------+ + + + | MCH | 33.0 | 27.0 - 33.0 pg | | | + +-------+ + + + + + | Specimen | + + | Blood | + + Comprehensive Metabolic Panel (03/15/2017) + +-------+ + + + | Component | Value | Ref Range | Performed | Pathologist | | | | | At | Signature | + +-------+ + + + | % Basophils | 0.8 | 0.0 - 2.0 % | | | + +-------+ + + + | Bun/Creatin | 13.7 | 6.0 - 28.6 | | | | ine | | | | | + +-------+ + + + | Anion Gap | 11 | 1 - 21 mmol/L | | | + +-------+ + + + | Globulin | 2.9 | 1.8 - 3.5 | | | + +-------+ + + + + + | Specimen | + + | Blood | + + External Lab: BUN (03/15/2017) + +-------+ + + + | Component | Value | Ref Range | Performed | Pathologist | | | | | At | Signature | + +-------+ + + + | BUN, | 20 | 6 - 23 | EXTERNAL | | | External | | | LAB | | + +-------+ + + + + + | Resulting Agency Comment | + + | [facility] | + + + +---------+ + + | Performing | Address | City/State/Zipcode | Phone Number | | Organization | | | | + +---------+ + + | EXTERNAL LAB | | | | + +---------+ + + External Lab: Glucose (03/15/2017) + +---------+ + + + | Component | Value | Ref Range | Performed | Pathologist | | | | | At | Signature | + +---------+ + + + | Glucose, | 145 (A) | 70 - 100 | EXTERNAL | | | External | | | LAB | | + +---------+ + + + + + | Resulting Agency Comment | + + | [facility] | + + + +---------+ + + | Performing | Address | City/State/Zipcode | Phone Number | | Organization | | | | + +---------+ + + | EXTERNAL LAB | | | | + +---------+ + + External Lab: Troponin T (03/15/2017) + +-------+ + + + | Component | Value | Ref Range | Performed | Pathologist | | | | | At | Signature | + +-------+ + + + | Troponin T, | 0.010 | | EXTERNAL | | | External | | | LAB | | + +-------+ + + + + + | Resulting Agency Comment | + + | [facility] | + + + +---------+ + + | Performing | Address | City/State/Zipcode | Phone Number | | Organization | | | | + +---------+ + + | EXTERNAL LAB | | | | + +---------+ + + External Lab: ALT (03/15/2017) + +-------+ + + + | Component | Value | Ref Range | Performed | Pathologist | | | | | At | Signature | + +-------+ + + + | ALT, | 24 | 7 - 52 | EXTERNAL | | | External | | | LAB | | + +-------+ + + + + + | Resulting Agency Comment | + + | [facility] | + + + +---------+ + + | Performing | Address | City/State/Zipcode | Phone Number | | Organization | | | | + +---------+ + + | EXTERNAL LAB | | | | + +---------+ + + External Lab: AST (03/15/2017) + +-------+ + + + | Component | Value | Ref Range | Performed | Pathologist | | | | | At | Signature | + +-------+ + + + | AST, | 13 | 13 - 39 | EXTERNAL | | | External | | | LAB | | + +-------+ + + + + + | Resulting Agency Comment | + + | [facility] | + + + +---------+ + + | Performing | Address | City/State/Zipcode | Phone Number | | Organization | | | | + +---------+ + + | EXTERNAL LAB | | | | + +---------+ + + External Lab: Alkaline Phosphatase (03/15/2017) + +-------+ + + + | Component | Value | Ref Range | Performed | Pathologist | | | | | At | Signature | + +-------+ + + + | ALP, | 69 | 31 - 120 | EXTERNAL | | | External | | | LAB | | + +-------+ + + + + + | Resulting Agency Comment | + + | [facility] | + + + +---------+ + + | Performing | Address | City/State/Zipcode | Phone Number | | Organization | | | | + +---------+ + + | EXTERNAL LAB | | | | + +---------+ + + External Lab: Bilirubin, Total (03/15/2017) + +-------+ + + + | Component | Value | Ref Range | Performed | Pathologist | | | | | At | Signature | + +-------+ + + + | Bilirubin, | 0.3 | 0 - 1.2 | EXTERNAL | | | Total, | | | LAB | | | External | | | | | + +-------+ + + + + + | Resulting Agency Comment | + + | [facility] | + + + +---------+ + + | Performing | Address | City/State/Zipcode | Phone Number | | Organization | | | | + +---------+ + + | EXTERNAL LAB | | | | + +---------+ + + External Lab: Albumin (03/15/2017) + +-------+ + + + | Component | Value | Ref Range | Performed | Pathologist | | | | | At | Signature | + +-------+ + + + | Albumin, | 4.0 | 3.5 - 5 | EXTERNAL | | | External | | | LAB | | + +-------+ + + + + + | Resulting Agency Comment | + + | [facility] | + + + +---------+ + + | Performing | Address | City/State/Zipcode | Phone Number | | Organization | | | | + +---------+ + + | EXTERNAL LAB | | | | + +---------+ + + External Lab: Protein, Total (03/15/2017) + +-------+ + + + | Component | Value | Ref Range | Performed | Pathologist | | | | | At | Signature | + +-------+ + + + | Protein, | 6.9 | 6 - 8 | EXTERNAL | | | Total, | | | LAB | | | External | | | | | + +-------+ + + + + + | Resulting Agency Comment | + + | [facility] | + + + +---------+ + + | Performing | Address | City/State/Zipcode | Phone Number | | Organization | | | | + +---------+ + + | EXTERNAL LAB | | | | + +---------+ + + External Lab: Calcium (03/15/2017) + +-------+ + + + | Component | Value | Ref Range | Performed | Pathologist | | | | | At | Signature | + +-------+ + + + | Calcium, | 9.0 | 8.4 - 10.2 | EXTERNAL | | | External | | | LAB | | + +-------+ + + + + + | Resulting Agency Comment | + + | [facility] | + + + +---------+ + + | Performing | Address | City/State/Zipcode | Phone Number | | Organization | | | | + +---------+ + + | EXTERNAL LAB | | | | + +---------+ + + External Lab: Carbon Dioxide (03/15/2017) + +-------+ + + + | Component | Value | Ref Range | Performed | Pathologist | | | | | At | Signature | + +-------+ + + + | Carbon | 25 | 19 - 31 | EXTERNAL | | | Dioxide, | | | LAB | | | External | | | | | + +-------+ + + + + + | Resulting Agency Comment | + + | [facility] | + + + +---------+ + + | Performing | Address | City/State/Zipcode | Phone Number | | Organization | | | | + +---------+ + + | EXTERNAL LAB | | | | + +---------+ + + External Lab: Chloride (03/15/2017) + +-------+ + + + | Component [...] Resulting Agency Comment | + + | [facility] | + + + +---------+ + + | Performing | Address | City/State/Zipcode | Phone Number | | Organization | | | | + +---------+ + + | EXTERNAL LAB | | | | + +---------+ + + External Lab: Potassium (03/15/2017) + +-------+ + + + | Component | Value | Ref Range | Performed | Pathologist | | | | | At | Signature | + +-------+ + + + | Potassium, | 3.7 | 3.6 - 5.1 | EXTERNAL | | | External | | | LAB | | + +-------+ + + + + + | Resulting Agency Comment | + + | [facility] | + + + +---------+ + + | Performing | Address | City/State/Zipcode | Phone Number | | Organization | | | | + +---------+ + + | EXTERNAL LAB | | | | + +---------+ + + External Lab: Sodium (03/15/2017) + +-------+ + + + | Component [...] Resulting Agency Comment | + + | [facility] | + + + +---------+ + + | Performing | Address | City/State/Zipcode | Phone Number | | Organization | | | | + +---------+ + + | EXTERNAL LAB | | | | + +---------+ + + External Lab: CBC (03/15/2017) + +-------+ + + + | Component | Value | Ref Range | Performed | Pathologist | | | | | At | Signature | + +-------+ + + + | WBC, | 9.1 | 4.5 - 11 | EXTERNAL | | | External | | | LAB | | + +-------+ + + + | HGB, | 16.5 | 13.5 - 18 | EXTERNAL | | | External | | | LAB | | + +-------+ + + + | HCT, | 46.8 | 41 - 50 | EXTERNAL | | | External | | | LAB | | + +-------+ + + + | PLT, | 194 | 140 - 440 | EXTERNAL | | | External | | | LAB | | + +-------+ + + + | Neutrophils | 64.2 | 39 - 80 | EXTERNAL | | | %, | | | LAB | | | External | | | | | + +-------+ + + + | Lymphocytes | 24.8 | 24 - 44 | EXTERNAL | | | %, | | | LAB | | | External | | | | | + +-------+ + + + | Monocytes | 8.5 | 0 - 12 | EXTERNAL | | | %, External | | | LAB | | + +-------+ + + + | Eosinophils | 1.7 | 0 - 6 | EXTERNAL | | | %, | | | LAB | | | External | | | | | + +-------+ + + + | RBC, | 5.02 | 4.3 - 5.7 | EXTERNAL | | | External | | | LAB | | + +-------+ + + + | MCV, | 93 | 81 - 99 | EXTERNAL | | | External | | | LAB | | + +-------+ + + + | RDW, | 13.2 | 10.5 - 15 | EXTERNAL | | | External | | | LAB | | + +-------+ + + + + + | Resulting Agency Comment | + + | [facility] | + + + +---------+ + + | Performing | Address | City/State/Zipcode | Phone Number | | Organization | | | | + +---------+ + + | EXTERNAL LAB | | | | + +---------+ + + External Lab: eGFR (03/15/2017) + +-------+ + + + | Component | Value | Ref Range | Performed | Pathologist | | | | | At | Signature | + +-------+ + + + | eGFR, | 49 | | EXTERNAL | | | External | | | LAB | | + +-------+ + + + + + | Specimen | + + | Blood | + + + + | Resulting Agency Comment | + + | [facility] | + + + +---------+ + + | Performing | Address | City/State/Zipcode | Phone Number | | Organization | | | | + +---------+ + + | EXTERNAL LAB | | | | + +---------+ + + External Lab: Creatinine (03/15/2017) + + + + + + | Component | Value | Ref Range | Performed | Pathologist | | | | | At | Signature | + + + + + + | Creatinine, | 1.46 (A) | 0.7 - 1.25 | EXTERNAL | | | External | | | LAB | | + + + + + + + + | Specimen | + + | Blood | + + + + | Resulting Agency Comment | + + | [facility] | + + + +---------+ + + [...] or lesion | | type, unspecified whether tanacross or transplanted heart | + + documented in this encounter"
--- OUTSIDE RECORDS SUMMARY | ~2020-03-04 | XMS | Encounter Summary ---
Demographics + + + | Address | [address] | | | [place] [address] | + + + | Home Phone [...] [place], [place] | | | | | [address] | | + + + + + Care Team Providers + +------+ + | Care Genetic Engineer Name | Role | Phone | [...] | | involving | [address] | [place] | | | | | [place] | [place] | [place] | | | | | coronary | [address] | [address] | | | | | artery of | Phone: | Phone: | | | | | m[place] heart | [phone] | [phone] | | | | | without | Fax: | Fax: | | | | | angina | [phone] | [phone] | | | | | pectoris | | | +--------+ + + + + + Encounter Details +--------+---------+ + + + | Date | Type | Department | Care Team | Description | +--------+---------+ + + + | 10/28/ | Office | [facility] | Carolina Lindarisa, | Coronary artery | | 2019 | Visit | MED CTR CARDIAC | MD [address] | disease, angina | | | | REHABILITATION [address] [place], | presence | | | | [address] [place] | [place] [address] | unspecified, | | | | [place] [address] | [phone] | unspecified vessel | | | | [phone] | | or lesion type, | | | | | | unspecified whether | | | | | | [place] or | | | | | | [...] - 10/28/2018 10:00 AM PST [facility] [address] [place] [address] Cardiac Rehab Date: 10/28/2018 Patient Information Patient Name: Bob Will Date of : 1955 Age: 62 y.o. Encounter Diagnoses Code Name Primary? I25.10 Coronary artery disease, angina presence unspecified, unspecified vessel or lesi on type, unspecified whether [place] or transplanted heart Yes Z98.61 Post PTCA [...] [place] | | | | | | [address] | | | | | | | | +--------+ + + + + | 04/16/ | Office | Cardiology | Alin Anderson | | | 2019 | Visit | | MD [address]yl [address] | | | | | | [address] | | | | | | [place] [address] | | | | | | [phone] | | | | | | | [...] [place] | | | | | | [address] | | | | | | | | +--------+ + + + + documented as of this encounter Visit Diagnoses + + | Diagnosis | + + | Coronary artery disease, angina presence unspecified, unspecified vessel or lesion | | type, unspecified whether [place] or transplanted heart - Primary | + + | Post PTCA Postsurgical percutaneous transluminal coronary angioplasty status | + + documented in this encounter"
--- OUTSIDE RECORDS SUMMARY | ~2020-03-04 | XMS | Encounter Summary ---
Demographics + + + | Address | [address] | | | [place] [address] | + + + | Home Phone [...] | | | | | [place] [address] | | + + + + + Care Team Providers + +------+ + | Care Director Of Sports Medicine Name | Role | Phone | + +------+ + | Jamal Guerrero MD | PCP | | + +------+ + Encounter Details +--------+ + + + + | Date | Type | Department | Care Team | Description | +--------+ + + + + | 01/28/ | Document-Sc | UNKNOWN DEPARTMENT | Unknown . | | | 2011 | anned | [address] | | | | | [address] | | | | | | [place] | | | | | | [address] | | | +--------+ + + + [...]
--- OUTSIDE RECORDS SUMMARY | ~2020-03-04 | XMS | Encounter Summary ---
Demographics + + + | Address | [address] | | | [place] [address] | + + + | Home Phone [...] [place], [place] | | | | | [address] | | + + + + + Care Team Providers + +------+ + | Care Environmental Health Technologist Name | Role | Phone | [...] Monitor | CARDIOLOGY [address] | [address] [place] | Interrogation | | | | [place], | [place], | (Primary Dx); FOOTBALL COACH-D | | | | [place] [address] | [place] [address] | (AICD) [employer] | | | | [phone] | [phone] | 10/16/17 [facility]; | | [...] Paceart documentation and remote PDF scanned into [email or web address] for remote interrogation results. Data collected by [...] | | | | | [place] [address] | | | | | | [phone] | | | | | | | [...] [place] | | | | | | [address] | | | | | | | [...] | e | 11:59 PM | Interrogation FOOTBALL COACH-D | procedure are in the | | REMOTE | | PDT | ([facility]) [employer] | results section. | [...] | | | remote PDF scanned into [email or web address] for remote interrogation results. Data | | [...] | cardiac defibrillator | + + | FOOTBALL COACH-D (GABBI) [employer] 10/16/17 EULOGIO Darby | + + | Ischemic cardiomyopathy Other specified forms of chronic ischemic heart disease | + + documented in this encounter"
--- OUTSIDE RECORDS SUMMARY | ~2020-03-04 | XMS | Encounter Summary ---
Demographics + + + | Address | [address] | | | [place] [address] | + + + | Home Phone [...] [place], [place] | | | | | [address] | | + + + + + Care Team Providers + +------+ + | Care Neckties Painter Name | Role | Phone | [...] | | | IMAGING [address] | [address] | | | | | [address] [place] | [place] [address] | | | | | [place] [address] | | | | | | [phone] | | | +--------+ + + + [...] [place] | | | | | | [id number] | | | | | | | | +--------+ + + + + | 04/16/ | Office | Cardiology | Alin Anderson | | | 2019 | Visit | | MD [address] | | | | | | [address] | | | | | | [place] [address] | | | | | | [phone] | | | | | | | | +--------+ + + + + | 04/16/ | Procedure | Cardiology | | | 2019 | visit | | | | +--------+ + + + + | 04/25/ | Office | Cardiology | Rocio Pearl, | | | 2019 | Visit | | [address] | | | | | | [facility] [facility]NOTE [facility] [place] | | | | | | [address] | | | | | | | [...]
--- OUTSIDE RECORDS SUMMARY | ~2020-03-04 | XMS | Encounter Summary ---
Demographics + + + | Address | [address] | | | [place] [address] | + + + | Home Phone [...] | | | | | [place] [address] | | + + + + + Care Team Providers + +------+ + | Care Senior Network Engineer Name | Role | Phone [...] Pharmacy | | | | | | [address] | | | | | | [place], [place] | | | | | | [address] | | | | | | [phone] | | | +--------+ + + + [...]
--- OUTSIDE RECORDS SUMMARY | ~2020-03-04 | XMS | Encounter Summary ---
Demographics + + + | Address | [address] | | | [place] [address] | + + + | Home Phone [...] [place] | | | | | [address] | | + + + + + Care Team Providers + +------+ + | Care Artificial Flowers Starcher Name | Role | Phone | + [...] + + | 05/26/ | Office | [facility] | Jenny, | Acute anterior wall | | 2017 | Visit | CARDIOLOGY [address] | ADARSH Santo [address] | [place] ([facility]) (Primary | | | | [place], | [place], | Dx); Coronary artery | | | | [place] [address] | [place] [address] | disease, angina | | | | [phone] | [phone] | presence | | | | | | unspecified, | | | | | | unspecified vessel | | | | | | or lesion type, | | | | | | unspecified whether | | | | | | [place] or | | | | | | transplanted heart; | | | | | | Ischemic [...] + + + | Blood Pressure | 114/78 | 05/26/2017 7:24 AM | | | | | PDT | | + + + + + | Pulse | 72 | 05/26/2017 7:24 AM | | | | | PDT | | + + + + + | Temperature | - | - | | + + + + + | Respiratory Rate | 16 | 05/26/2017 7:24 AM | | | | | PDT | | + + + + + | Oxygen Saturation | - | - | | + + + + + | Inhaled Oxygen | - | - | | | Concentration | | | | + + + + + | Weight | 87.1 kg (192 lb) | 05/26/2017 7:24 AM | | | | | PDT | | + + + + + | Height | 177.8 cm (5' 10") | 05/26/2017 7:24 AM | | | | | PDT | | + + + + + | Body Mass Index | 27.55 | 05/26/2017 7:24 AM | | | | | PDT | | + + + + + documented in this encounter Progress Notes Hansa Alvarado ARNP - 05/26/2017 7:45 AM PDTFormatting of this note might be differen t from the original. PATIENT NAME: Bob Will : 1955: AGE: 61 y.o. PRIMARY CARE: Young Haque DO OUTPATIENT FOLLOW UP VISIT Date of Service: 05/26/2017 HISTORY OF PRESENT ILLNESS: Bob Will is a 61 y.o. male with a history of coronary artery disease post recent anterior wall [place], post PTCA and stents of the left main, LAD and LCx on 03/15/17, cardiac shoc k, left atrial appendage thrombus. He is being seen today for CAD and cardiomyopathy. He was last seen 05/04/17 at which time he was to restart Plavix 300 mg tomorrow then back t o 75 mg once a day, and continue Plavix for the next 6 months to minimize stent thrombosis. Increase lisinopril 10 mg a day for cardiomyopathy, stop isosorbide mononitrate, check bloo d pressure log for 2 weeks and lab work in one week. He was also to check echocardiogram to assess cardiac structure and to stop warfarin if there is no evidence of thrombus, he was t o stop wearing life vest and switch metoprolol to Coreg 3.125 mg twice a day for treatment o f cardiomyopathy. He was to follow-up in 2 weeks. Since that time, he has been feeling "gr eat". He is doing his exercise program at home daily, PT comes in twice a week as well to wo rk with him at home. He denies any chest pain, chest pressure or shortness of breath. He has not been taking his blood pressure on a daily basis. He took it once and his blood pressure was 90's so he held his Lisinopril. This has not been done on a regular basis. He denies li ghtheadedness, dizziness, palpitations, or leg swelling. MEDICAL, SURGICAL, AND PERSONAL HISTORY Past Medical, Surgical, Family, and Social History are reviewed in EPIC. CURRENT PROBLEMS Patient Active Problem List Diagnosis Acute anterior wall [place] CAD (coronary artery disease) CURRENT MEDICATIONS Current Outpatient Prescriptions Medication Sig Dispense Refill acetaminophen (TYLENOL) 500 mg tablet Take 500 mg by mouth as needed. aspirin 81 MG tablet Take by mouth Daily. atorvaSTATin (LIPITOR) 40 mg tablet Take by mouth Daily. carvedilol (COREG) 3.125 mg tablet Take 1 tablet by mouth 2 times daily (with breakfast & dinner). 60 tablet 3 cholecalciferol (CHOLECALCIFEROL) 1000 units TABS Take by mouth 2 times daily. clopidogrel (PLAVIX) 75 mg tablet Take 1 tablet by mouth Daily. 90 tablet 3 lisinopril (PRINIVIL, ZESTRIL) 5 mg tablet Take 2 tablets by mouth Daily. 180 tablet 3 melatonin 3 mg TABS Take by mouth nightly as needed. metFORMIN (GLUCOPHAGE) 500 mg tablet Take by mouth 2 times daily. oxyCODONE (ROXICODONE) 5 mg tablet Take by mouth as needed. raNITIdine (ZANTAC) 300 MG tablet Take by mouth nightly. No current facility-administered medications for this visit. ALLERGIES No Known Allergies ROS Review of Systems Constitutional: Negative for chills, diaphoresis, fever, malaise/fatigue and weight loss. HENT: Negative for congestion and nosebleeds. Eyes: Negative for blurred vision and double vision. Respiratory: Negative for cough, shortness of breath and wheezing. Cardiovascular: Positive for leg swelling (left leg). Negative for chest pain, palpitations , orthopnea and claudication. Gastrointestinal: Negative for heartburn, nausea and vomiting. Musculoskeletal: Positive for falls (on 05/25/17 step down wrong ). Negative for back pain, joint pain and neck pain. Neurological: Positive for tingling (in legs ). Negative for dizziness, weakness and headac hes. Endo/Heme/Allergies: Bruises/bleeds easily (on plavix). OBJECTIVE: PHYSICAL EXAM BP 114/78 | Pulse 72 | Resp 16 | Ht 1.778 m (5' 10") | Wt 87.1 kg (192 lb) | BMI 27.55 kg/m Physical Exam Constitutional: He is oriented [...] now present Confirmed by LAUREN CHESTER MD ([id number]) on 05/05/2017 6:03:03 AM LAB RESULTS reviewed during visit today primarily from [facility]: LIPID No results found for: CHOL, [...] PLTEX 194 03/15/2017 I reviewed records from [facility] for office visit on 04/2017 whic h is summarized in the HPI. Echocardiogram 05/07/17 shows, Mild left atrial dilatation, Normal left ventricular size. Th ere is a segmental wall motion abnormality with thinning and severe hypokinesis of the entir e anterior and anteroseptal region. Overall, left ventricular systolic function is moderatel y decreased. LVEF is 35-40%, Grade 1 left ventricular diastolic dysfunction,Mild mitral valv e agitation, Normal right-sided pressure, Normal IVC with normal respiratory collapse. Angiography and stent 03/15/2017 successful PCI with placement of 3.0X23 stent in the distal LM and ostial LAD reducing a 100% stenotic lesion to 0% residual stenosis, successful PCI wi th placement of 2.5X18 stent in the ostial LCx reducing a 90% stenotic lesion to 0% resdual stenosis. Above data and testing is reviewed this [...] shock requiring IABP, pressor (dopamine, norepinephrine) . [facility] and [facility] were on divert. Patient wasn't transferred to [facility], [facility]. B. Echocardiogram 03/17/2017 shows LV ejection fraction is severely decreased, visually est imated left ventricular ejection fraction is 20 - 25%, left ventricular systolic thickening is segmentally abnormal, mildly reduced RV systolic function. Normal RV size, no significant valvular abnormalities seen, compared to the most recent exam dated, 03/15/2017, there is n o significant changes C. At [facility], patient had another STEMI code [...] to follow up closely with a local high school auto repair teacher in [place]. He wias dischargeed wi th a LifeVest [...] Mild left atrial dilatation, Normal left ventricular siz e. There is a segmental wall motion abnormality with thinning and severe hypokinesis of the entire anterior and anteroseptal region. Overall, left ventricular systolic function is mode rately decreased. LVEF is 35-40%, Grade 1 left ventricular diastolic dysfunction,Mild mitral valve agitation, Normal right-sided pressure, Normal IVC with normal respiratory collapse. F. Angiography and stent 03/15/2017 successful PCI with placement of 3.0X23 stent in the d istal LM and ostial LAD reducing a 100% stenotic lesion to 0% residual stenosis, successful PCI with placement of 2.5X18 stent in the ostial LCx reducing a 90% stenotic lesion to 0% re sdual stenosis. G. Today, patient is completely asymptomatic. He denies any cardiac symptoms. He has been back to taking his Plavix. He is not taking warfarin. Patient is physically active doing e xercises at home. He has been walking around his house without any cardiac symptoms. There is no angina or dyspnea at rest or on exertion. There is no palpitation dizziness or light headedness. There is no signs and symptoms of overt congestive heart failure. He is in a c lass I of [place] [employer] functional class. There is no fluid retention on physi annie examination. His ejection fraction has improved slightly but it is now 35-40%. He could stop using the LifeVest at this point. She has not been consistently taking his blood pressure, there is doubt whether or not he may be having some hypotension therefore making up titration of medi cation heart at this time. Patient has been reinforced of the need to follow-up with blood pressure log to be able to up titrate either the lisinopril or carvedilol to improve myocard ial function. 2. Toxic metabolic encephalopathy A. Problem completely resolved. 3. Left atrial appendage thrombus A. Noted on MARKY in the [place] during ECMO decannulation. Completedheparin gtt bridge 03/29 to therapeutic warfarin. Not on warfarin any more, no evidence of thrombus in last echocardiog aisha 4. Normocytic anemia 5. Thrombocytosis A. Problem was resolved at [facility]. PLAN: 1. Discontinue use of Life Vest since EF>35% 2. check blood pressure and pulse twice daily for two weeks and return the log to our offic e. With this information we will attempt up titration of lisinopril or carvedilol 3. He will follow up in 4 weeks, or sooner with concerns. 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 The ruddy rwork from [employer] states clearly EF of 40% or above. Patient has been instructed to continue t aking his medication, do a blood pressure log and repeat echocardiogram before next appointm ent to see if his ejection fraction has cleared 40%. Portions of this chart may have been created with [employer] voice recognition software. Occasi onal wrong-word [...] F | | | | | | [place] [address] | | | | | | [phone] | | | | | | | [...] [place] | | | | | | [address] | | | | | | | | +--------+ + + + + documented as of this encounter Visit Diagnoses + + | Diagnosis | + + | Acute anterior wall [place] (HCC) - Primary Acute myocardial infarction of other anterior | | wall, episode of care unspecified | + + | Coronary artery disease, angina presence unspecified, unspecified vessel or lesion | | type, unspecified whether [place] or transplanted heart | + + | Ischemic cardiomyopathy Other specified forms of chronic ischemic heart disease | + + documented in this encounter
--- OUTSIDE RECORDS SUMMARY | ~2020-03-04 | XMS | Encounter Summary ---
Demographics + + + | Address | [address] | | | [place] [address] | + + + | Home Phone [...] [place], [place] | | | | | [address] | | + + + + + Care Team Providers + +------+ + | Care Pebble Mill Operator Name | Role | Phone | + +------+ + PCP | Unavailable | + +------+ + Encounter Details +--------+ + + + + | Date | Type | Department | Care Team | Description | +--------+ + + + + | 06/08/ | Abstract | [facility] [place] | Jenny, | | | 2018 | | CARDIOLOGY [address] | ADARSH Santo [address] | | | | | [place], | [place], | | | | | [place] [address] | [place] [address] | | | | | [phone] | [phone] | | | | | | | [...] [place] | | | | | | [address] | | | | | | | | +--------+ + + + + | 04/16/ | Office | Cardiology | Alin Anderson | | | 2019 | Visit | | MD Cheryl Arreguin | | | | | | [address] | | | | | | [place] [address] | | | | | | [phone] | | | | | | | [...] [place] | | | | | | [address] | | | | | | | | +--------+ + + + + documented as of this encounter Procedures + +--------+ + + + | Procedure Name | Priori | Date/Time | Associated Diagnosis | Comments | | | ty | | | | + +--------+ + + + | EXTERNAL LAB: BUN | Routin | 06/07/2018 | | Results for this | | | e | | | procedure are in the | | | | | | results section. | + +--------+ + + + | EXTERNAL LAB: | Routin | 06/07/2018 | | Results for this | | GLUCOSE | e | | | procedure are in the | | | | | | results section. | + +--------+ + + + | EXTERNAL LAB: | Routin | 06/07/2018 | | Results for this | | CALCIUM | e | | | procedure are in the | | | | | | results section. | + +--------+ + + + | EXTERNAL LAB: CARBON | Routin | 06/07/2018 | | Results for this | | DIOXIDE | e | | | procedure are in the | | | | | | results section. | + +--------+ + + + | EXTERNAL LAB: | Routin | 06/07/2018 | | Results for this | | CHLORIDE | e | | | procedure are in the | | | | | | results section. | + +--------+ + + + | EXTERNAL LAB: | Routin | 06/07/2018 | | Results for this | | POTASSIUM | e | | | procedure are in the | | | | | | results section. | + +--------+ + + + | EXTERNAL LAB: SODIUM | Routin | 06/07/2018 | | Results for this | | | e | | | procedure are in the | | | | | | results section. | + +--------+ + + + | EXTERNAL LAB: EGFR | Routin | 06/07/2018 | | Results for this | | | e | | | procedure are in the | | | | | | results section. | + +--------+ + + + | EXTERNAL LAB: | Routin | 06/07/2018 | | Results for this | | CREATININE | e | | | procedure are in the | | | | | | results section. | + +--------+ + + + | COMPREHENSIVE | Routin | 06/07/2018 | | Results for this | | METABOLIC PANEL | e | | | procedure are in the | | | | | | results section. | + +--------+ + + + documented in this encounter Results Comprehensive Metabolic Panel (06/07/2018) + +-------+ + + + | Component | Value | Ref Range | Performed | Pathologist | | | | | At | Signature | + +-------+ + + + | Anion Gap | 17 | 7 - 21 mmol/L | | | + +-------+ + + + | Bun/Creatin | 18.0 | 6.0 - 28.6 | | | | ine | | | | | + +-------+ + + + + + | Specimen | + + | Blood | + + External Lab: BUN (06/07/2018) + +--------+ + + + | Component | Value | Ref Range | Performed | Pathologist | | | | | At | Signature | + +--------+ + + + | BUN, | 27 (A) | 6 - 23 | EXTERNAL | | | External | | | LAB | | + +--------+ + + + + +---------+ + + | Performing | Address | City/State/Zipcode | Phone Number | | Organization | | | | + +---------+ + + | EXTERNAL LAB | | | | + +---------+ + + External Lab: Glucose (06/07/2018) + +---------+ + + + | Component | Value | Ref Range | Performed | Pathologist | | | | | At | Signature | + +---------+ + + + | Glucose, | 154 (A) | 70 - 100 | EXTERNAL | | | External | | | LAB | | + +---------+ + + + + +---------+ + + | Performing | Address | City/State/Zipcode | Phone Number | | Organization | | | | + +---------+ + + | EXTERNAL LAB | | | | + +---------+ + + External Lab: Calcium (06/07/2018) + +-------+ + + + | Component [...] +---------+ + + External Lab: Carbon Dioxide (06/07/2018) + +-------+ + + + | Component | Value | Ref Range | Performed | Pathologist | | | | | At | Signature | + +-------+ + + + | Carbon | 24 | 19 - 31 | EXTERNAL | [...] + +---------+ + + External Lab: Chloride (06/07/2018) + +-------+ + + + | Component [...] + +---------+ + + External Lab: Potassium (06/07/2018) + +-------+ + + + | Component | Value | Ref Range | Performed | Pathologist | | | | | At | Signature | + +-------+ + + + | Potassium, | 3.9 | 3.6 - 5.1 | EXTERNAL | | | External | | | LAB | | + +-------+ + + + + +---------+ + + | Performing | Address | City/State/Zipcode | Phone Number | | Organization | | | | + +---------+ + + | EXTERNAL LAB | | | | + +---------+ + + External Lab: Sodium (06/07/2018) + +-------+ + + + | Component | Value | Ref Range | Performed | Pathologist | | | | | At | Signature | + +-------+ + + + | Sodium, | 141 | 132 - 143 | EXTERNAL | | | External | | | LAB | | + +-------+ + + + + +---------+ + + | Performing | Address | City/State/Zipcode | Phone Number | | Organization | | | | + +---------+ + + | EXTERNAL LAB | | | | + +---------+ + + External Lab: eGFR (06/07/2018) + +-------+ + + + | Component | Value | Ref Range | Performed | Pathologist | | | | | At | Signature | + +-------+ + + + | eGFR, | 47 | | EXTERNAL | | | External [...] + +---------+ + + External Lab: Creatinine (06/07/2018) + + + + + + | Component | Value | Ref Range | Performed | Pathologist | | | | | At | Signature | + + + + + + | Creatinine, | 1.50 (A) | 0.7 - 1.25 | EXTERNAL [...]
--- OUTSIDE RECORDS SUMMARY | ~2020-03-04 | XMS | Encounter Summary ---
Demographics + + + | Address | [address] | | | [place] [address] | + + + | Home Phone [...] [place], [place] | | | | | [address] | | + + + + + Care Team Providers + +------+ + | Care Epic Anesthesia Analyst Name | Role | Phone | [...] | | CARDIOLOGY [address] | Hansa, SPECIAL EDUCATION PRESCHOOL TEACHER [address] | | | | | [place], | [place], | | | | | [place] [address] | [place] [address] | | | | | [phone] | | | | | | | [...] [place] | | | | | | [address] | | | | | | | | +--------+ + + + + | 04/16/ | Office | Cardiology | Alin Anderson | | | 2019 | Visit | | MD [address] | | | | | | [address] | | | | | | [place] [address] | | | | | | [phone] | | | | | | | [...] [place] | | | | | | [address] | | | | | | | | +--------+ + + + + documented as of this encounter Visit Diagnoses Not on filedocumented in this encounter"
--- OUTSIDE RECORDS SUMMARY | ~2020-03-04 | XMS | Encounter Summary ---
Demographics + + + | Address | [address] | | | [place] [address] | + + + | Home Phone [...] [place], [place] | | | | | [address] | | + + + + + Care Team Providers + +------+ + | Care Radio Tester Name | Role | Phone | + +------+ + PCP | Unavailable | + +------+ + Encounter Details +--------+ + + + + | Date | Type | Department | Care Team | Description | +--------+ + + + + | 04/22/ | Abstract | [facility] | Randy Figueroa, | | | 2017 | | CARDIOLOGY [address] | MD [address] [place] | | | | | [place], | [place], | | | | | [place] [address] | [place] [address] | | | | | [phone] | | | | | | | [...] [place] | | | | | | [address] | | | | | | | | +--------+ + + + + | 04/16/ | Office | Cardiology | Alin Anderson | | | 2019 | Visit | | MD Cheryl Arreguin | | | | | | [address] | | | | | | [place] [address] | | | | | | [phone] | | | | | | | [...] [place] | | | | | | [address] | | | | | | | [...]
--- OUTSIDE RECORDS SUMMARY | ~2020-03-04 | XMS | Encounter Summary ---
Demographics + + + | Address | [address] | | | [place] [address] | + + + | Home Phone [...] [place], [place] | | | | | [address] | | + + + + + Care Team Providers + +------+ + | Care Peripatologist Name | Role | Phone | + +------+ + PCP | Unavailable | + +------+ + Encounter Details +--------+ + + + + | Date | Type | Department | Care Team | Description | +--------+ + + + + | 03/30/ | Abstract | [facility] | Randy Figueroa, | | | 2017 | | CARDIOLOGY [address] | MD [address] [place] | | | | | [place], | [place], | | | | | [place] [address] | [place] [address] | | | | | [phone] | | | | | | | [...] [place] | | | | | | [address] | | | | | | | | +--------+ + + + + | 04/16/ | Office | Cardiology | Alin Anderson | | | 2019 | Visit | | MD Cheryl Arreguin | | | | | | [address] | | | | | | [place] [address] | | | | | | [phone] | | | | | | | | +--------+ + + + + | 04/16/ | Procedure | Cardiology | | | | 2019 | visit | | | | +--------+ + + + + | 04/25/ | Office | Cardiology | Rocoi Pearl, | | | 2019 | Visit | | [address] | | | | | | [place] | | | | | | [address] | | | | | | | [...]
--- OUTSIDE RECORDS SUMMARY | ~2020-03-04 | XMS | Encounter Summary ---
Demographics + + + | Address | [address] | | | [place] [address] | + + + | Home Phone [...] [place], [place] | | | | | [address] | | + + + + + Care Team Providers + +------+ + | Care Pediatric Dentist Name | Role | Phone | + +------+ + PCP | Unavailable | + +------+ + Reason for Visit +--------+--------+ + | Reason | Onset | Comments | | | Date | | +--------+--------+ + | Other | 11/05/ | | | | 2018 | | +--------+--------+ + Encounter Details +--------+ + + + + | Date | Type | Department | Care Team | Description | +--------+ + + + + | 11/05/ | Telephone | [facility] | Jenny, | Other | | 2017 | | CARDIOLOGY [address] | Hansa INSURANCE AGENCY MANAGER [address] | | | | | [place], | [place], | | | | | [place] [address] | [place] [address] | | | | | [phone] | [phone] | | | | | | | [...] Telephone Encounter - Ronny Chapman RN - 11/05/2017 4:39 PM PSTCalled and spoke with [place] cobos, relayed message per Evelyn. [place] per . ................................. ..........RONNY CHAPMAN RN on 11/05/17 at 16:40 elephone Encounter - Hansa lAvarado ARNP - 11/05/2017 3:08 PM PSTSure, he can continue as prescribed by t he provider that prescribed it. Electronically signed by: ADARSH Stevens 11/05/2017 15:[address] - Suzanne Cheng RN - 11/05/2017 9:14 AM PSTPatient called, was confused about wh ether Hansa Jenny ALTAMIRANO wanted him to stop tramadol. It helps with his nerve pain and shantal reyes has not been taking it and is hurting. I informed him that I would consult with Hansa and return his call ...........................................SUZANNE CHENG, RN on 11/05 at 9:17 documented in thi s encounter Plan of Treatment +--------+ + + + + | Date | Type | Specialty | Care Team | Description | +--------+ + + + + | 03/12/ | Office | Nephrology | Litzy, | | | 2019 | Visit | | ADARSH [address] | | | | | | [facility] | | | | | | [address] [place] | | | | | | [address] | | | | | | | | +--------+ + + + + | 04/16/ | Office | Cardiology | Alin Anderson | | | 2019 | Visit | | MD Cheryl Arreguin | | | | | | [address] | | | | | | [place] [address] | | | | | | [phone] | | | | | | | [...] [place] | | | | | | [address] | | | | | | | | +--------+ + + + + documented as of this encounter Visit Diagnoses Not on filedocumented in this encounter"
--- OUTSIDE RECORDS SUMMARY | ~2020-03-04 | XMS | Encounter Summary ---
Demographics + + + | Address | [address] | | | [place] [address] | + + + | Home Phone [...] [place] | | | | | [address] | | + + + + + Care Team Providers + +------+ + | Care Assistant Store Manager Trainee Name | Role | Phone | + [...] | | | heart | [place], | [place] | | | | | failure | [place] [address] | [place] | | | | | (HCC) | Phone: | [address] | | | | | I50.22 | [phone] | Phone: | | | | | Procedures | Fax: | [phone] | | | | | Cardiac | [phone] | Fax: | | | | | Rehab | | [phone] | +--------+--------+ + + + + Encounter [...] Way [place], [place] | failure) ([facility]) | | | | [address] | [address] | | | | | [place] [address] | | | | | | [phone] | | | +--------+---------+ + + + [...] might be different f rom the original. [facility] [address] [place] [address] Cardiac Rehab Date: 07/19/2019 Patient Information Patient Name: Bob Will Date of : 1955 Age: 63 y.o. Encounter Diagnoses Code Name Primary? I50.22 Chronic systolic CHF (congestive heart failure) ([facility]) Number of Visits Approved: 34 [...] [place] | | | | | | [address] | | | | | | | | +--------+ + + + + | 04/16/ | Office | Cardiology | Alin Anderson | | | 2019 | Visit | | MD Cheryl Arreguin | | | | | | [address] | | | | | | [place] [address] | | | | | | [phone] | | | | | | | [...] [place] | | | | | | [address] | | | | | | | | +--------+ + + + + documented as of this encounter Visit Diagnoses + + | Diagnosis | + + | Chronic systolic CHF (congestive heart failure) (HCC) | + + documented in this encounter"
--- OUTSIDE RECORDS SUMMARY | ~2020-03-04 | XMS | Encounter Summary ---
Demographics + + + | Address | [address] | | | [place] [address] | + + + | Home Phone [...] [place], [place] | | | | | [address] | | + + + + + Care Team Providers + +------+ + | Care Blanket Folder Name | Role | Phone | + +------+ + PCP | Unavailable | + +------+ + Reason for Visit + +--------+ + | Reason | Onset | Comments | | | Date | | + +--------+ + | Medication Related | 11/29/ | | | | 2019 | | + +--------+ + Encounter Details +--------+ + + + + | Date | Type | Department | Care Team | Description | +--------+ + + + + | 11/29/ | Telephone | [facility] | Jenny, | Medication Related | | 2019 | | CARDIOLOGY [address] | [address] | | | | | [place], | [place], | | | | | [place] [address] | [place] [address] | | | | | [phone] | [phone] | | | | | | | [...] documented as of this encounter Miscellaneous Notes Addendum Note - Lilian Sanchez RN - 12/02/2018 8:31 AM PDT Addended by: LILIAN SANCHEZ on: 12/02/2018 08:31 Modules accepted: Orders elephone Hansa Mirza ARNP - 12/02/2018 8:23 AM PDTDianne, I have reviewed the labs and patient can continue the medication as suggested. Please updat e our medication list in the computer as well. Thank you much! Electronically signed by: ADARSH Stevens 12/02/2018 8:25 elephone Encoun Lilian Bennett RN - 12/02/2018 7:53 AM PDTLabs done on 12-01-18 received today and abstracted into chart. I will ask Hansa to please review and advise if patient is ok to sta rt medications at this time ...........................................Lilian Sanchez RN o n 12/02/18 at 7:54 elephone Encounter - Ronny Chapman RN - 12/01/2018 8:43 AM PDTAwaiting lab results to be faxed from [facility] in [place]. Per Hansa. Plan is to continue with the prescribed Torsemide 10 mg table ts 2 tablets in the AM and 1 tablet in the PM, and Spironolactone 25 mg daily, after she rev iews lab results............................................RONNY CHAPMAN RN on 12/01/18 at 8:44 ddendum Note - Ronny Baker RN - 11/30/2018 4:38 PM PDT Addended by: RONNY CHAPMAN on: 11/30/2018 16:38 Modules accepted: Orders eleRonny Pope RN - 11/30/2018 4:31 PM PDTCalled [place] and relayed message per Hansa. Okay per [place]. BMP order will be faxed to [facility] in [place]. ........................................ ...RONNY CHAPMAN RN on 11/30/18 at 16:37 elephone Encounter - Hansa Alvarado ARNP - 11/30/2018 4:26 PM PDTSince things got changed at [place] on 11/02-, I need to know if patient has had a BMP checked since then. Please get me th ose results if he has had labs since then. If not, then he needs to have a BMP done. I will refill meds for sure if his kidney function and potassium is doing well. Electronically signed by: ADARSH Stevens 11/30/2018 16:28 eleRonny Mustafa RN - 11/30/2018 10:33 AM PDTPatient's came to the clinic statin g Ashok went to the ER in [place], at which time he was restarted on spironolactone and swit ched from furosemide to torsemide. Informed [place] Santo will review the records and a r eturn call will be made. Okay per [place]. ...........................................GOPAL CHAPMAN RN on 11/30/18 at 10:51 elephone Encounter - Ronny Chapman RN - 11/29/2018 1:54 PM PDTReceived refill requests for spironolactone and torsemide. Spironolactone was discontinued by the [facility] on 10/27/18 due to decreased kidne y function and torsemide is not currently on the medication list and is not on his historica l medication list. Called [facility] pharmacy and relayed information. pharmacist endy brian with original prescribing physician. ...........................................RONNY CHAPMAN RN on 11/29/18 at 14:12 documented in this e ncounter Plan of Treatment +--------+ + + + + | Date | Type | Specialty | Care Team | Description | +--------+ + + + + | 03/12/ | Office | Nephrology | [facility], | | | 2019 | Visit | | [address] | | | | | | [address] [facility] | | | | | [...] | | | | | [place] [address] | | | | | | [phone] | | | | | | | [...] [place] | | | | | | [address] | | | | | | | [...] | starting 11/30/2018 | | | | | [place] coronary | until 12/01/2019 | | | | | artery of [place] | | | | | | heart without angina | | | | | | pectoris | | + +------+--------+ + + documented as of this encounter Visit Diagnoses + + | Diagnosis | + + | Coronary artery disease involving [place] coronary artery of [place] heart without | | angina pectoris - Primary | + + documented in this encounter"
--- OUTSIDE RECORDS SUMMARY | ~2020-03-04 | XMS | Encounter Summary ---
Demographics + + + | Address | [address] | | | [place] [address] | + + + | Home Phone [...] | | | | | [place] [address] | | + + + + + Care Team Providers + +------+ + | Care Retail Solar Advisor Name | Role | Phone | [...] | | | | | (HCC) | [place], [place] | for Health | | | | | Stenosis of | [address] | and Healing, | | | | | coronary | Phone: | Building [address] | | | | | artery | [phone] | [place], [place] | | | | | stent, | Fax: | [phone] | | | | | initial | [phone] | Phone: | | | | | encounter | | [phone] | | | | | Procedures | | Fax: | | | | | CONSULT TO | | [phone] | | | | | CARDIAC | [...] + + | 10/10/ | Hospital | [address] | Khurram Bedoya | | | 2018 - | Encounter | [address] | MD Kari [address] BISI [address] | | | | | [address] [place] [address] | [address] | | | 10/17/ | | [place], [place] | [place] | | | 2018 | | [address] | [phone] | | | | | [phone] | [phone] | | | | | | | [...] Physician & Institution: Other Dictation Primary/Outpatient Manager Utilization Management: Dr Jamal Guerrero MD Inpatient Attending Physician: Khurram Bedoya MD Author/Discharging Provider: LALA SCHOFIELD PA-C Admission Date: 10/10/2017 Discharge Date: 10/17/2017 Active Hospital Problems 1) *NSTEMI (non-ST elevated myocardial infarction) (HCC) 2) Coronary artery disease 3) Stenosis of coronary artery stent 4) Ischemic cardiomyopathy 5) Chronic systolic congestive heart failure (HCC) 7) Encounter for insertion of cardiac resynchronization therapy defibrillator (SOLID WASTE MANAGEMENT ENGINEER-D) 8) Paroxysmal atrial flutter (HCC) 9) Influenza, pneumonia 10) Prediabetes 11) Tobacco use Procedures 10/15/17: Successful percutaneous coronary intervention to the ostial left circumflex. One 3.0 x 18 mm Resolute [employer] drug-eluting stent. Successful percutaneous coronary transluminal angiopla sty of the distal left main extending into the left anterior descending coronary artery with final kissing balloon inflation with a 3.5 mm noncompliant and a 2.5 mm compliant balloon. 10/16/17: 1) EP study with VT induction 2) SOLID WASTE MANAGEMENT ENGINEER-D implantation Reason For Admission: Consideration of complex PCI vs CABG for in-stent restenosis of LCx and LM/LAD stents Hospital Course: Please see H&P for hospital course at [facility] prior to transfer to [facility]. Ron Mckeon is a 61 year old [...] treatment who was admitted in transfer from [facility] on 10/11 for consideration of PCI vs [...] support--had one 3.0 x [address] ug-eluting stent placed in ostial L [...] 10/16. VT was induced, therefor e a SOLID WASTE MANAGEMENT ENGINEER-D was implanted. He is discharging home in good condition with follow up in 1 week w ith his Manager Utilization Management. The following problems were addressed this hospitalization: [...] uenza and underwent a coronary angiogram at [facility] which revealed in stent re-stenosis of both LM into LAD and LCx stents, mild disease of RCA. Transferred to [facility] for further onel luation. CTS was consulted for consideration of CABG vs complex PCI. Due to nonviable myocardium archie wn on cardiac PET and resting NM perfusion study, PCI was chosen over CABG. On 10/15 he underw ent angiography/PCI with impella support--had one 3.0 x 18 mm Resolute [employer] drug-eluting chery nt placed in ostial L [...] Stage C. Etiology ischemic. TTE at [facility] showed EF 30-35%, mildly reduced RV function, [...] the past --ICD: placed by EP 10/16, SOLID WASTE MANAGEMENT ENGINEER-D -- will need 1 week f/u for wound check, then 1 month device check with EP -- f/u with outpatient charge poster 2-4 weeks # Paroxysmal Aflutter Noted Aflutter with RVR at admission in [facility]; treated with amiodarone infusion. He w as transitioned to oral amiodarone and maintained normal rhythm. Given that the aflutter occ urred in setting of severe sepsis, will not continue amiodarone or warfarin. If he has recur rent arrhythmia, this will be noted on SOLID WASTE MANAGEMENT ENGINEER-D and could consider anticoagulation at that time . However, he requires DAPT and has a possible history of recent GIB, so triple therapy shou ld be avoided if not necessary --rate control: metoprolol as above --anticoagulation: holding warfarin for now given DAPT and h/o GI B. Discuss further with outpatient charge poster. May consider holding anticoagulation unless he demonstrates recurrent arrhythmia # Influenza type A - resolved # Community acquired pneumonia # Severe sepsis with shock, resolved Pt presented to [facility] 10/03 found to be Flu Apositive with [...] sepsis management , fluid resuscitation. EGD at [facility] on 10/05 showed gastritis, duodenitis, linear ulcerations [...] first post-hospitalization visit: 1. Wound check from SOLID WASTE MANAGEMENT ENGINEER-D placement 2. Consider restarting lisinopril if BPs improve and Cr is stable 3. Instructed pt to restart metformin on 08/18 but reevaluate based on Cr Schedule the following appointment(s) when you get home KULWINDER Stevens. Go on 10/19/2017. Why: at 1:15pm for heart failure follow up, to re-check labwork, and to have your wound ch ecked Contact information HEART [address] [address] KULWINDER Stevens. Go on 11/11/2017. Why: at 9:30am for cardiology follow up and to have your device checked Contact information HEART [address] [address] Medication List START taking these medications Childrens [...] Resume on 10/19. Indications: type 2 diabetes [facility] metoprolol succinate 25 mg Tb24 Commonly [...] 0%. 8.Stent: 3.0 x 18 mm Resolute [employer] drug-eluting stent. Lesion #2: 1.Lesion location: Distal [...] circumflex. One 3.0 x 18 mm Resolute [employer] drug-eluting stent. Successful percutaneous coronary transluminal angiop [...] ths. You should be cleared by your charge poster prior to returning to driving. If you [...] How to Contact us: Cardiology Division Office [phone] Cardiology Patient Phone Line EDUIN Shepherd Dr[address] Dr., Dr., PA-C Connie Barber, CHRISTA Salgado, ALFONSO Yung RN Evenings or weekends: Ask for on-call charge poster Drug Eluting Stent 1. Please take Plavix (clopidogrel) everyday which helps to keep the stent open. You need t o take it every day for one year and do not stop unless you are told to by your charge poster . 2. Take an aspirin 81 mg once daily indefinitely. 3. You were referred for cardiac rehab and should start now that you have had a stent place d. 4. Follow up with your charge poster within 2-4 weeks. 5. No elective surgeries [...] smoker.Patient counseled on importance of smoking cessation [facility] Last vitals: BP: 101/65 (10/17/17 1144) Pulse: 80 (10/17/17 1144) Resp: 18 ( 1144) Weight: 88.4 kg (194 lb 14.2 oz) (10/17/17 0221) Discharging Provider: LALA SCHOFIELD PA-C, Cardiovascular Medicine Attending Physician: Khurram Bedoya MD, Cardiovascular Medicine Lala Schofield PA-C Instructor of Cardiovascular Medicine [facility] [place] [facility] [place] I spent 36 minutes in coordination of care and iqjz-bz-shoc with the patient and/or their s urrogate in which the problems above were discussed Associated attestation - Khurram Bedoya MD - 10/17/2017 3:22 PM PSTCardiology [facility] I have seen and examined Mr. Mckeon and discussed the [facility]. I reviewed the practitioner's note above and agree with the documented f indings and plan of care. KHURRAM BEDOYA MD Director of the [facility] Hypertrophic Cardiomyopathy Detention Attendant of Echocardiography Flight Security Specialistsearch engine optimization strategist Division of Cardiovascular Medicine documented in this encounter Discharge Instructions AttachmentsThe following attachments cannot be sent through Care Everywhere.WOUND CHECK (EN GLISH)ICD (IMPLANTABLE CARDIOVERTER-DEFIBRILLATOR): POST-OP (GUINEAN)PAIN POST-SURGERY: ACUT E (GUINEAN)OPIOIDS: SAFE USE (GUINEAN)OPIOIDS: STORAGE AND DISPOSAL: GENERAL INFO (GUINEAN)d ocumented in this encounter Medications at Time [...] Information: Implant date: 10/16/17 BiV-ICD pulse generator: Mobile Mechanic: [employer]ot[employer] Model number: [id number] Serial number: [id number] RA lead: Mobile Mechanic: [employer]tronic Model number: 5076-52 Serial number: [id number] RV lead: Mobile Mechanic: [employer] Model number: [id number] Serial number: [id number] CS lead: Mobile Mechanic: [employer] Model number: [id number] Serial number: [id number] ICD PROGRAMMING: Bradycardia Parameters: Mode: DDD Lower rate limit: 50 Upper rate limit: 130 Output (A): 3.5 V at 0.4 ms Sensitivity (A): 0.3 mV Output (RV): 3.5 V at 0.4 ms Sensitivity (RV): 0.3 mV Output (CS): 2.0 V at 0.4ms Tachycardia Parameters: VT zone: 177-200 Therapies: Monitor VF zone: >200 bpm Therapies: 35 J x 6 PACING PERCENTAGE: AP: <0.1% PUBLIC HEALTH DIETITIAN: 98.3% EPISODES SINCE IMPLANT: none. TODAY'S TESTING [...] Device check in one month at [facility] device clinic. I have reque sted our [...] MD Electrophysiology Fellow Division of Cardiovascular Medicine [facility] Pager [phone] signed by Lauro Jorgensen MD at 10/18/2017 [...] follow up. Lauro Jorgensen M.D. Director, Electrophysiology Tag Makerstunt double [facility] [place] [address] Amarilis Castle MD - 10/17/2017 10:53 AM [...] hs. You should be cleared by your charge poster prior to returning to driving. ? If [...] through the full body scanner at the [facility], but only after 6 weeks post [...] How to Contact us: Cardiology Division Office [phone] Cardiology Patient Phone Line EDUIN [address] [...] 1) EP study with VT induction 2) SOLID WASTE MANAGEMENT ENGINEER-D Indication for the procedure: Ischemic cardiomyopathy with [...] Fellow Division of Cardiovascular Medicine [facility] Pager [phone] ala Schofield PA-C - 10/16/2017 2:07 PM PST IP Cardiology Progress Note Date: 10/16/2017 Hospital Day: 6 Attending Manager Utilization Management: Khurram Bedoya MD Provider: LALA SCHOFIELD PA-C Primary Care Provider: Chato Matson MD Outpatient Manager Utilization Management: Dr Jamal Guerrero MD ID:Ron Mckeon is a 61 year old male with past medical history of CAD s/p anterior [facility] 03/2017 with cardiogenic shock s/p PCI with ANY to LM/LAD and LCx with ECMO support, systo lic heart failure (EF 20-25%), ischemic cardiomyopathy, hypertension, Atrial flutter, prior tobacco use, recent JAVON thrombus on anticoagulation, Influenza A with septic shock (10/03) re quiring intubation and mechanical ventilation, HAP on treatment who was admitted in transfer from [facility] on 10/11 for consideration of PCI vs [...] cannot appreciate murmur and sounds regular. J PUBLIC HEALTH DIETITIAN not above clavicle at 90 degrees Gastrointestinal: [...] found for: FREET4, TSH, TPOAB, THYROGLOB, THYROGLOBAB, [id number] Lab Results Component Value Date A1C 5.9 [...] 8. Stent: 3.0 x 18 mm Resolute [employer] drug-eluting stent. Lesion #2: 1. Lesion location: [...] uenza and underwent a coronary angiogram at [facility] which revealed in stent re-stenosis of both LM into LAD and LCx stents, mild disease of RCA. Transferred to [facility] for further onel luation. CTS was consulted [...] Stage C. Etiology ischemic. TTE at [facility] showed EF 30-35%, mildly reduced RV function, [...] check with EP -- f/u with outpatient charge poster 2-4 weeks # Paroxysmal Aflutter Noted Aflutter with RVR at admission in [facility]; treated with amiodarone infusion. Now maintaining SR on oral amio. CHADS-VASC 3, HAS-BLED 3. Was previously on heparin infusion fo r NSTEMI but this has been stopped and AC was not started in anticipation of PCI. --rate control: carvedilol as above --rhythm control: continue amiodarone 200 mg daily for now, to be reassessed b y outpatient charge poster --anticoagulation: holding warfarin for now given DAPT and h/o GIB. Discuss fu rther with outpatient charge poster. May consider holding anticoagulation unless he demonstra janeth recurrent arrhythmia # Influenza type A - resolved # Community acquired pneumonia # Severe sepsis with shock, resolved Pt presented to [facility] 10/03 found to be Flu A positive [...] sepsis management , fluid resuscitation. EGD at [facility] on 10/05 showed gastritis, duodenitis, linear ulcerations [...] patient was interviewed and examined by attending charge poster, Dr. Khurram Bedoya MD , who is in agreement with above described findings, assessment and plan. LALA SCHOFIELD PA-C Cardiovascular Medicine [facility] Pager [phone] I spent 36 minutes in coordination of care and rglo-uy-gpsb with the patient and/or their surrogate in [...] current post-cath car e. JOHN AMAYA MD [address] [facility] [address] [place] [address] Ruth Ann Aguilar PA-C - [...] circumflex. One 3.0 x 18 mm Resolute [employer] drug-eluting stent. Successful percutaneous coronary transluminal angiopla [...] circ and LAD. EPS v-stim with possible SOLID WASTE MANAGEMENT ENGINEER-D tomorrow (QRS today is 152 atypical LB BB). See yesterdays attestation Sophie Darby MD Cardiovascular Medicine - Electrophysiology [facility] [place] at [facility] Arya Low MD - 10/15/2017 1:05 PM PSTCARDIOLOGY PRELIMINARY PROCEDURE NOTE Primary Care Provider: Chato Matson MD Referring Provider: Other Dictation X Ray Equipment Servicer Staff: Tejal Modi M.D. Procedure(s): 1. Coronary angiography 2. Percutaneous coronary intervention 3. Left heart catheterization 4. Impella placement and removal 5. Moderate conscious sedation Indications: Unstable angina, planned LM intervention Access: 14-Luxembourger RFA 6-Luxembourger RFV 7-Luxembourger LFA Post Procedure Access: No evidence of significant hematoma or bleeding Estimated Blood Loss: 50 mL Medications: Fentanyl 100 mcg Route: IV Heparin 8500 units Route: IV Midazolam 3 mg Route: IV Contrast: Omnipaque 110 mL Findings: Severe distal LM into LAD ISR Severe ostial LCx ISR Intervention: PCI with one 3.0 x 18 mm Resolute [employer] ANY Complications: None Hemostasis: Perclose Recommendations: Return [...] Date: 10/15/2017 Hospital Day: 5 Attending Manager Utilization Management: Khurram Bedoya MD Provider: LALA SCHOFIELD PA-C Primary Care Provider: Chato Matson MD Outpatient Manager Utilization Management: Dr Jamal Guerrero MD ID:Ron Mcekon is a 61 year old male with past medical history of CAD s/p anterior [facility] 03/2017 with cardiogenic shock s/p PCI with ANY to LM/LAD and LCx with ECMO support, systo lic heart failure (EF 20-25%), ischemic cardiomyopathy, hypertension, Atrial flutter, prior tobacco use, recent JAVON thrombus on anticoagulation, Influenza A with septic shock (10/03) re quiring intubation and mechanical ventilation, HAP on treatment who was admitted in transfer from [facility] on 10/11 for consideration of PCI vs [...] cannot appreciate murmur and sounds regular. J PUBLIC HEALTH DIETITIAN not above clavicle at 90 degrees Gastrointestinal: [...] found for: FREET4, TSH, TPOAB, THYROGLOB, THYROGLOBAB, [id number] Lab Results Component Value Date A1C 5.9 [...] uenza and underwent a coronary angiogram at [facility] which revealed in stent re-stenosis of both LM into LAD and LCx stents, mild disease of RCA. Transferred to [facility] for further onel luation. CTS was consulted for consideration of CABG vs complex PCI. Due to nonviable myocardium archie wn on cardiac PET and resting NM perfusion study, he will proceed with PCI tomorrow with Imp tania support. -- to general laborer today for PCI with impella support [...] Stage C. Etiology ischemic. TTE at [facility] showed EF 30-35%, mildly reduced RV function, [...] Noted Aflutter with RVR at admission in [place]; treated with amiodarone infusion. Now maintaining SR [...] sepsis with shock, resolved Pt presented to [facility] 10/03 found to be Flu A positive [...] sepsis management , fluid resuscitation. EGD at [facility] on 10/05 showed gastritis, duodenitis, linear ulcerations [...] patient was interviewed and examined by attending charge poster, Dr. Khurram Bedoya MD , who is in agreement with above described findings, assessment and plan. LALA SCHOFIELD PA-C Cardiovascular Medicine [facility] Pager [phone] I spent 38 minutes in coordination of care and rlpp-su-cvoe with the patient and/or their surrogate in which the following was discussed: plan for PCI with impella support today, hea rt failure, anticoagulation for aflutter, discharge planning Associated attestation - Khurram Bedoya MD - 10/15/2017 1:15 PM PSTCardiology Attendi libby I have seen and examined Mr. Mckeon and discussed the [facility]. I reviewed the practitioner's note above and agree with the documented f indings and plan of care. KHURRAM BEDOYA MD Director of the [facility] Hypertrophic Cardiomyopathy Detention Attendant of Echocardiography Flight Security Specialistsearch engine optimization strategist Division of Cardiovascular Medicine Ruth Ann Carvajal [...] is segmentally abnormal. 10/03/17: TTE @ [facility] Summary The number of aortic valve leaflets [...] CARDIAC CATHETERIZATION: DATE OF PROCEDURE:10/03/17 @ [facility] CORONARY ANGIOGRAPHY DOMINANCE: Right LEFT MAIN ARTERY: [...] about Vf/VT risk in both short and manager 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. Given NSVT and EF 30-35%, we will therefore proceed to an EP study with implantation o f an ICD if she has inducible VT. Given atypical LBBB QRS 147 and current functional status 3 (prior 1-2 by report) and concern for lack of EF recovery, we would plan for SOLID WASTE MANAGEMENT ENGINEER with His- bundle lead if needed. Sophie Darby MD Cardiovascular Medicine - Electrophysiology [facility] [place] at [facility] Lala Schofield PA-C - 10/14/2017 11:58 AM PSTFormatting of this note might be different f rom the original. IP Cardiology Progress Note Date: 10/14/2017 Hospital Day: 4 Attending Manager Utilization Management: Khurram Bedoya MD Provider: LALA SCHOFIELD PA-C Primary Care Provider: Chato Matson MD Outpatient Manager Utilization Management: Dr Jamal Guerrero MD ID:Ron Mckeon is a 61 year old male with past medical history of CAD s/p anterior [facility] 03/2017 with cardiogenic shock s/p PCI with ANY to LM/LAD and LCx with ECMO support, systo lic heart failure (EF 20-25%), ischemic cardiomyopathy, hypertension, Atrial flutter, prior tobacco use, recent JAVON thrombus on anticoagulation, Influenza A with septic shock (10/03) re quiring intubation and mechanical ventilation, HAP on treatment who was admitted in transfer from [place] on 10/11 for consideration of PCI vs [...] t hankful of care provided at [facility] Current Inpatient Medications: acetaminophen (TYLENOL) tablet 650 [...] found for: FREET4, TSH, TPOAB, THYROGLOB, THYROGLOBAB, [id number] Lab Results Component Value Date A1C 5.9 [...] uenza and underwent a coronary angiogram at [facility] which revealed in stent re-stenosis of both LM into LAD and LCx stents, mild disease of RCA. Transferred to [facility] for further onel luation. CTS was consulted [...] Stage C. Etiology ischemic. TTE at [facility] showed EF 30-35%, mildly reduced RV function, [...] Noted Aflutter with RVR at admission in [place]; treated with amiodarone infusion. Now maintaining SR [...] sepsis with shock, resolved Pt presented to [facility] 10/03 found to be Flu A positive [...] sepsis management , fluid resuscitation. EGD at [facility] on 10/05 showed gastritis, duodenitis, linear ulcerations [...] patient was interviewed and examined by attending charge poster, Dr. Khurram Bedoya MD , who is in agreement with above described findings, assessment and plan. LALA SCHOFIELD PA-C Cardiovascular Medicine [facility] Pager [phone] I spent 42 minutes in coordination of care and ehxv-mh-vjjx with the patient and/or their s urrogate in which the following was discussed: results of nuc med and PET scan studies indic ating no viable myocardium and thus will plan for complex PCI tomorrow Associated attestation - Khurram Bedoya MD - 10/14/2017 9:29 PM PSTCardiology Attendi libby I have seen and examined Mr. Mckeon and discussed the [facility]. I reviewed the practitioner's note above and agree with the documented f indings and plan of care. KHURRAM BEDOYA MD Director of the [facility] Hypertrophic Cardiomyopathy Detention Attendant of Echocardiography Flight Security Specialistsearch engine optimization strategist Division of Cardiovascular Medicine Ashleigh Alvarez ACNP - 10/13/2017 8:33 AM PSTFormatting of this note might be diff erent from the original. Cardiology Inpatient Progress Note Date: 10/13/2017 Hospital Day: 3 Primary Care Physician: Chato Matson MD Outpatient Manager Utilization Management: Dr Jamal Guerrero MD Attending Manager Utilization Management: Khurram Bedoya MD Provider: KULWINDER Grace ID: [...] who was admitted in transfe r from [place] on 10/11 for consideration of PCI vs [...] found for: FREET4, TSH, TPOAB, THYROGLOB, THYROGLOBAB, [id number] Lab Results Component Value Date A1C 5.9 [...] dated, 03/30/2017, the LVEF is similar. [facility] CXR 10/11/17: FINDINGS: The increased lung volumes. [...] flow to distal LAD 10/03/17 Echo at [facility]: The number of aortic valve leaflets cannot [...] stents # NSTEMI Pt was admitted to [facility] 10/03 with hypoxemic respiratory failure, severe sepsis and s hock thought to be due to influenza type A as below. Noted to have new LBBB, NSTEMI with pea k trop 26. Underwent coronary angiogram at [facility] 10/04 which revealed in stent re-steno sis of both LM into LAD and LCx stents, mild disease of RCA. Transferred to [facility] for further evaluation. TTE showed LV function [...] [facility]) which would require repeat [...] Stage C. Etiology ischemic. TTE at [facility] showed EF 30-35%, mildly reduced RV function, mild dilation of ascending aorta. LVEDP 14 mm hg during catheterization 10/04 ( in setting of hypotension). Pt was diuresed at [facility], appears euvolemic on exam. Pt wa s [...] Noted Aflutter with RVR at admission in [place], treated with amiodarone infusion, bertha alonzo SR [...] admitted with acute dyspnea, respiratory failure to [facility] 10/03 found to be Flu A p [...] sepsis management , fluid resuscitation. EGD at [facility] on 10/05 showed gastritis, duodenitis, linear ulcerations [...] patient was interviewed and examined by attending charge poster, Dr. Khurram Bedoya MD , who is in agreement with above described findings, assessment and plan. Ashleigh Alvarez, [facility] Instructor of Medicine [facility] [place] Pager [phone] I spent 33 minutes in coordination of care and luyr-gy-eurm with the patient and/or their s urrogate in which management of CAD, imaging plan and consultation with radiology, revascula rization treatment was discussed Associated attestation - Khurram Bedoya MD - 10/13/2017 2:48 PM PSTCardiology Attendi I have seen and examined Mr. Mckeon and discussed the patient's management with the [employer] practitioner. I reviewed the practitioner's note above and agree with the documented f indings and plan of care. KHURRAM BEDOYA MD Director of the [facility] Hypertrophic Cardiomyopathy Detention Attendant of Echocardiography Flight Security Specialistsearch engine optimization strategist Division of Cardiovascular Medicine Ashleigh Alvarez ACNP - 10/12/2017 8:02 AM PSTFormatting of this note might be diff erent from the original. Cardiology Inpatient Progress Note Date: 10/12/2017 Hospital Day: 2 Primary Care Physician: Chato Matson MD Outpatient Manager Utilization Management: Dr Jamal Guerrero MD Attending Manager Utilization Management: Khurram Bedoya MD Provider: KULWINDER Grace ID: [...] who was admitted in transfe r from [place] on 10/11 for consideration of PCI vs [...] found for: FREET4, TSH, TPOAB, THYROGLOB, THYROGLOBAB, T2IYRLL Lab Results Component Value Date A1C 5.6 [...] dated, 03/30/2017, the LVEF is similar. [facility] CXR 10/11/17: FINDINGS: The increased lung volumes. [...] flow to distal LAD 10/03/17 Echo at [facility]: The number of aortic valve leaflets cannot [...] stents # NSTEMI Pt was admitted to [facility] 10/03 with hypoxemic respiratory failure, severe sepsis and s hock thought to be due to influenza type A as below. Noted to have new LBBB, NSTEMI with pea k trop 26. Underwent coronary angiogram at [place] 10/04 which revealed in stent re-steno sis of both LM into LAD and LCx stents, mild disease of RCA. Transferred to [facility] for further evaluation. TTE shows LV function [...] Stage C. Etiology ischemic. TTE at [facility] showed EF 30-35%, mildly reduced RV function, mild dilation of ascending aorta. LVEDP 14 mm hg during catheterization 10/04 ( in setting of hypotension). He was diuresed at [place], appears euvolemic on exam today. Pt was [...] Aflutter with RVR prior to admission in [place], treated with amioda rima infusion, maintaining SR [...] admitted with acute dyspnea, respiratory failure to [facility] 10/03 found to be Flu pos itive. [...] sepsis management , fluid resuscitation. EGD at [place] on 10/05 showed gastritis, duodenitis, linear ulcerations [...] patient was interviewed and examined by attending charge poster, Dr. Khurram Bedoya MD , who is in agreement with above described findings, assessment and plan. Ashleigh Alvarez, [facility] Instructor of Medicine [facility] [place] Pager [phone] I spent 51 minutes in coordination of care and abzk-wt-wvqh with the patient and/or their s urrogate in which management of CAD, imaging plan and consultation with radiology, pneumonia treatment was discussed Associated attestation - Khurram Bedoya MD - 10/12/2017 3:00 PM PSTCardiology Attendi I have seen and examined Mr. Mckeon and discussed the [facility]'s [facility]. I reviewed the practitioner's note above and agree with the documented f indings and plan of care. KHURRAM BEDOYA MD Director of the [facility] Hypertrophic Cardiomyopathy Detention Attendant of Echocardiography Flight Security Specialistsearch engine optimization strategist Division of Cardiovascular Medicine Cristi Sutton - 10/11/2017 12:15 PM PSTTransthoracic echocardiogram completed. Final report to follow. documented in this enc ounter Plan of Treatment + +---------+--------+ + + | Name | Type | Priori | Associated Diagnoses | Order Schedule | | | | ty | | | + +---------+--------+ + + | MANAGEMENT INSTRUCTOR INT | Imaging | Routin | | Tomorrow for 1 | | CORONARY ANGIOGRAM | | e | | Occurrences starting | | | | | | 10/15/2017 until | | | | | | 10/15/2017 | + +---------+--------+ + + | MANAGEMENT INSTRUCTOR EP ICD | Imaging | Routin | [...] | | PST | infarction) ([facility]) | results section. | + +--------+ + + + | CAPILLARY BLOOD | Routin | 10/17/2017 | Non-ST elevation | Results for this | | GLUCOSE (NO CHG), | e | 7:38 AM | (NSTEMI) myocardial | procedure are in the | | POC | | PST | infarction ([facility]) | results section. | + [...] | | PST | infarction) ([facility]) | results section. | + [...] | | PST | infarction ([facility]) | results section. | + [...] | + +--------+ + + + | MANAGEMENT INSTRUCTOR | Routin | 10/15/2017 | | Results [...] | | PST | infarction ([facility]) | results section. | + [...] | | PST | infarction ([facility]) | results section. | + [...] [facility] | [address] | [place], [place] | | | [facility] | [address] | [address] | | | TESTS | | | [...] MARIA | [address] | [place], [place] | | | RICARDO BROWNING OF [facility] | [address] | [address] | | | TESTS | | | [...] | + + | Service Account, Arely USB Promos In Interface - 10/17/2017 7:51 AM PST [...] [facility] | [address] | [place] [address] | | | SERVICES, CORE | PARK [...] | | | LABORATORY | | | MALTESE | | | SERVICES, | | | [...] + + + + + | [facility] | [address] | [place] [address] | | | SERVICES, CORE | PARK [...] At | + + + | STUDY: ND CHEST 1 VIEW HISTORY: Evaluated lead placement. | [facility] | | COMPARISON: STUDY: ND CHEST 1 VIEW FINDINGS: A new | [...] Note | + + | Service Account, RadiNonpareil Res In Interface - 10/17/2017 7:51 AM [...] OF PROCEDURE: 10/16/2017 MRN: | | | [id number] DATE OF : 1955 REFERRING PHYSICIAN: | [...] He is | | | candidate for SOLID WASTE MANAGEMENT ENGINEER-D since he as class 2 baseline heart failure and | | | currently class 3 heart failure with LBBB 152 msec. PROCEDURE | | | ATTENDING: Sophie Darby MD FELLOW: | | | Amarilis Castle MD PROCEDURAL DATA: Procedure: New | | | implant Implanted generator non licensed operator: Medtronic Implanted leads | | | non licensed operator: Medtronic Radha-procedure Anticoag: None Presenting | [...] INFORMATION: BiV-ICD pulse generator: | | | Mobile Mechanic: MedPrevoty Model number: [id number] Serial number: | | | [id number] RA lead: Mobile Mechanic: Medtronic Model number: | | | [id number] Serial number: [id number] RV lead: Mobile Mechanic: | | | Medtronic Model number: [id number] Serial number: [id number] | | | CS lead: Mobile Mechanic: Medtronic Model number: [id number] Serial | | | number: [id number] MEASURED PARAMETERS: RA lead: P wave: | [...] Division of | | | Cardiovascular Medicine [facility] [place] Pager | | | [phone] Pursuant to Federal Medicare requirements, I certify that I, | | | Sophie Darby MD, was present for the entire procedure, performed | | | all critical elements, and participated directly in the generation | | | of this report. Sophie Darby MD Cardiovascular Medicine - | | | Electrophysiology [facility] [place] at [facility] | | + + + PROCEDURE NOTE (10/16/2017 5:27 PM PST) + + + | Narrative | Performed At | + + + | Sophie Darby MD 10/27/2017 11:06 AM PATIENT NAME: | | | Ron Mckeon DATE OF PROCEDURE: 10/16/2017 MRN: | | | [id number] DATE OF : 1955 REFERRING PHYSICIAN: | [...] | | MEDICATIONS: See anesthesia log and general laborer log FLUIDS: | | | In: 300 [...] HV interval (ms): 75 | | | ND interval (ms): 180 QRS duration (ms): 130 [...] Division of Cardiovascular | | | Medicine [facility] Pager [phone] | | | Pursuant to Federal Medicare requirements, I certify that I, Sophie | | | Wilner BREWER, was present for the entire procedure, performed all | | | critical elements, and participated directly in the generation of | | | this report. Sophie Darby MD Cardiovascular Medicine - | | | Electrophysiology [facility] [place] at [facility] | | + + + VBG-FULL ABL, POC (10/16/2017 3:55 PM PST) + + + + + + | Component | Value | Ref Range | Performed | Pathologist | | | | | At | Signature | + + + + + + | PH VENOUS, | 7.32 (L) | 7.35 - 7.45 | [facility] - | | | POC | | [...] [facility] | [address] | [place], [place] | | | JULIANN SILVA OF [place] | [facility] | [address] | | | TESTS | | | [...] [facility] | [address] | [place], [place] | | | [facility] [place] | [address] | [address] | | | TESTS | | | [...] + + + + + | [facility] | [address] | [place] [address] | | | SERVICES, CORE | JT [...] | | | LABORATORY | | | MALTESE | | | SERVICES, | | | [...] + + + + + | [facility] | [address] | [place] [address] | | | SERVICES, CORE | JT [...] Zoe [facility] | [address] | [place], [place] | | | JULIANN SILVA OF [facility] | [address] | [address] | | | TESTS | | | [...] DEPT OF | [address] | [place], [place] | | | CARDIOLOGY | [address] | [address] | | + + + + + CARDIAC CATH (10/15/2017 2:11 PM PST) + + | Procedure Note | + + | Tejal Modi MD - 10/15/2017 2:11 PM PST DATE OF PROCEDURE:October 15, | | 2018PERFORMING PHYSICIAN:Tejal Modi [facility] ATTENDING:Mike Bray MDThere was no | | [...] 110 mL.FLUOROSCOPY TIME:17.8 minutes.FLUOROSCOPY | | DAP:7406.0 sTgzu5IORCXHZXRJMW:1. Left ventricular pressure 91/23 mmHg.2. Aortic | | pressure 93/72 mmHg, mean of 80 mmHg. 3. Heart rate 71 beats per minute.ACCESS:1. | | 14-Luxembourger Impella sheath in the right femoral artery.2. 7-Luxembourger sheath in the left | | femoral artery.3. 6-Luxembourger sheath in the right femoral vein.ESTIMATED BLOOD [...] | micropuncture technique and ultrasound guidance, a 5-Luxembourger sheath was inserted in the | | right femoral artery and a 6-Luxembourger sheath was inserted in the right femoral vein. Two | | Perclose devices were deployed in the preclosure method and then the 5-Luxembourger sheath was | | exchanged over an Amplatz stiff wire for the 14-Luxembourger Impella sheath. A 5-Luxembourger | | angled pigtail catheter was then [...] technique and ultrasound guidance and placed a 7-Luxembourger sheath. A 7-Luxembourger XB 3.5 guide | | catheter was [...] and pulled out of the body. The 14-Luxembourger sheath was | | then removed and [...] | | 10/15/2017 13:25:02DT: 10/15/2017 14:11:10Job #: [id number] | |2. Lesion type: C. | |3. [...] |BCN/MODL | | | | | | /[id number] | + + ACT, POC-CCL ONLY (10/15/2017 [...] ANA MARIA | [address] | [place], [place] | | | [facility] [place] | [facility] | [address] | | | TESTS | | | [...] [facility] | [address] | [place], [place] | | | JULIANN SILVA OF [facility] | [facility] | [address] | | | TESTS | | | [...] [facility] | [address] | [place], [place] | | | [facility] [place] | [address] | [address] | | | TESTS | | | | + + + + + MANAGEMENT INSTRUCTOR EMERGENT/IMMEDIATE PROCEDURE (10/15/2017 11:00 AM PST) + + | Specimen | + + | | + + + + + | Narrative | Performed At | + + + | Procedure | | | performed in the Cardiac X Ray Equipment Servicer. See procedure notes for details. | | [...] [facility] | [address] | [place], [place] | | | J[facility] CARE | [address] | [address] | | | TESTS | | | [...] + + + + + | [facility] | [address] | [place] [address] | | | SERVICES, ИРИНА | JT [...] | | | LABORATORY | | | MALTESE | | | SERVICES, | | | [...] [facility] | [address] | [place] [address] | | | SERVICES, CORE | PARK [...] + + + + + | [facility] | [address] | [place] [address] | | | SERVICES, CORE | JT [...] MARIA | [address] | [place], [place] | | | [place] OF [facility] | [address] | [address] | | | TESTS | | | [...] | | | LABORATORY | | | MALTESE | | | SERVICES, | | | [...] + + + + + | [facility] | [address] | [place] [address] | | | SERVICES, CORE | PARK [...] EULOGIO CALABRESE | [address] | [place] [address] | | | ARASH, ИРИНА | JT [...] + | [facility] | [address] [facility] [address] | [place], [place] | | | RICARDO BROWNING OF [facility] | [address] | [address] | | | TESTS | | | [...] tracer uptake within the | | | tlf-cx-jacwcc anterior wall/interventricular septum and apex | | [...] significant tracer | | uptake within the xvj-vf-xqjkrs anterior wall/interventricular septum and apex | | corresponding to same non-perfused areas seen on myocardial rest perfusion scan, | | compatible with nonviable myocardium in these regions. I have personally reviewed the | | images and, if necessary, edited the report. I agree with the report as now presented. | |No significant tracer uptake within the wsl-ed-cgizoc anterior wall/interventricular septum and apex corresponding to [...] [facility] | [address] | [place], [place] | | | [facility]ARE | [address] | [address] | | | TESTS | | | [...] [facility] | [address] | [place], [place] | | | [facility] S[facility] CARE | [address] | [address] | | | TESTS | | | [...] [facility] | [address] | [place], [place] | | | [facility]ARE | [address] | [address] | | | TESTS | | | [...] MARRANDIAM | [address] | [place], [place] | | | J[facility] S[facility] CARE | [address] | [address] | | | TESTS | | | [...] - [facility] | [address] | [place], [place] | | | J[facility] S[facility] CARE | [address] | [address] | | | TESTS | | | [...] [facility] | [address] | [place], [place] | | | [facility]ARE | [address] | [address] | | | TESTS | | | [...] [facility] | [address] | [place], [place] | | | [facility]ARE | [address] | [address] | | | TESTS | | | [...] - [facility] | [address] | [place], [place] | | | [facility] S[facility] CARE | [address] | [address] | | | TESTS | | | [...] [facility] | [address] | [place], [place] | | | [facility] | [address] | [address] | | | TESTS | | | [...] [facility] | [address] | [place], [place] | | | [facility]ARE | [address] | [address] | | | TESTS | | | [...] + + + | E[facility]OG[facility] - [facility]NA [facility] | [address] [facility] [address] | [place], [place] | | | R[facility]ARDO BROWNING OF [facility] | [address] | [address] | | | TESTS | | | [...] Note | + + | Service Account, Gamador In Interface - 10/13/2017 5:30 PM PST [...] [facility] | [address] | [place], [place] | | | J[facility] SIL[facility] CARE | [address] | [address] | | | TESTS | | | [...] [facility] | [address] | [place] [address] | | | SERVICES, CORE | PARK [...] | | | LABORATORY | | | MALTESE | | | SERVICES, | | | [...] + + + + + | [facility] | [address] | [place] [address] | | | SERVICES, CORE | PARK [...] EULOGIO [facility] | [address] | [place], [place] | | | JULIANN SILVA OF [facility] | [address] | [address] | | | TESTS | | | [...] + + + + + | [facility] | [address] | [place] [address] | | | SERVICES, CORE | JT [...] | 70 - 99 mg/dL | [facility] - | | | GLUCOSE, | | [...] [facility] | [address] | [place], [place] | | | [facility] [place] | [address] | [address] | | | TESTS | | | | + + + + + MR CARDIAC COMPREHENSIVE W/O CONTRAST (10/12/2017 12:38 PM PST) + + | Specimen | + + | | + + + + + | Narrative | Performed At | + + + | Report ====== Curing Machine Operator: Rodríguez Fortune ([id number]), shubham | EULOGIO | | richy Regulatory Leader: shubham lockhart Fellow: shubham lockhart | RADIOLOGY | | Shoe Planner: shubham lockhart Viewer: shubham lockhart Report Date: | CARDIAC IMAGING | | Oct 2017, 09:22:25 PST Patient ------- Patient: RON MCKEON | | | Acc #: [id number] | | | Ethnicity: N Status: Final [...] | | | Image Quality: Good Scanner Mobile Mechanic: Life360 Scanner | | | Model: fluIT Biosystems Scanner Serial Number: [id number] Scanner Software | | | Platform: 5.3.15.3.1.0 Staff: Rodríguez Fortune Modality: MR | | | Indication Name: routine Protocol Name: CMR W Flows WO Contrast | | | Findings -------- Non-cardiac findings were reviewed by Dr. Curtis. | | | This exam was terminated prematurely and is lmiited to premix operator concentrate images. | | | There are bilateral [...] - 10/16/2017 9:22 AM PST | | Report======Curing Machine Operator: Rodríguez Fortune ([id number]), shubham Rodriguezalyst: shubham | | Lorena: shubham Garciaechnician: shubham Beckwithwer: shubham | | Rosey Date: 16 Oct 2017, 09:22:25 PSTPatient-------Patient: RON MCKEON | | JMedical Record Number: [id number] ID: [id number] #: [id number]: NStatus: | | Final ReportReport Number: [id number]: MaleBirthdate: 1955 (61 yrs)Study Date: 05 | | Oct 2017Study Description: CMR with Flows with ContrastReferring Physician: KHURRAM | | HEITNERBlood Pressure: /Heart rate:Height (cm): 0Weight (kg): 89BMI (kg/m ): 0BSA | | (m ): 0 (Mosteller Formula)Image Quality: Shop HerscanDataVote Mobile Mechanic: Cloudstaff | | KypScanner Model: Kabam Serial Number: [id number] Software Platform: | | 5.3.15.3.1.0Staff: Rodríguez FortuneModality: MRIndication Name: routineProtocol Name: | | CMR W Flows WO ContrastFindings--------Non-cardiac findings were reviewed by | | Ever.This exam was terminated prematurely and is lmiited to premix operator concentrate images.There are | | bilateral pleural effusions. [...] Formula) | |Image Quality: Good | |Scanner Mobile Mechanic: Life360 | |Scanner Model: fluIT Biosystems | |Scanner Serial Number: [id number] | |Scanner Software Platform: 5.3.15.3.1.0 | |Staff: Rodríguez Fortune | |Modality: MR | |Indication Name: routine | |Protocol Name: CMR W Flows WO Contrast | |Findings | |-------- | |Non-cardiac findings were reviewed by Dr. Curtis. | |This exam was terminated prematurely and is lmiited to premix operator concentrate images. | |There are bilateral pleural effusions. [...] [facility] | [address] | [place], [place] | | | JULIANN SILVA OF [facility] | [address] | [address] | | | TESTS | | | [...] [facility] | [address] | [place] [address] | | | SERVICES, CORE | PARK [...] E[facility]OG[facility] LABORATORY | [address] | [place] [address] | | | SERVICES, ИРИНА | JT [...] | | | LABORATORY | | | MALTESE | | | SERVICES, | | | [...] + + + + + | [facility] | [address] | [place] [address] | | | SERVICES, ИРИНА | JT [...] [facility] | [address] | [place] [address] | | | ИРИНА ANTOINE | JT [...] [facility] | [address] | [place], [place] | | | [facility] SIL[facility]ARE | [facility] | [address] | | | TESTS | | | [...] | 70 - 99 mg/dL | [facility] - | | | GLUCOSE, | | [...] + + + | EULOGIO [facility] | [address] | [place], [place] | | | JULIANN SILVA OF [facility] | [address] | [address] | | | TESTS | | | [...] presence of significant oropharyngeal contamination. CRITICAL | [place] | | RESULTS Results called to and verified by: Vicki Reyes at phone # | | | [facility] on: 10/12/2017 8:10:02 AM PST by: [id number] | | + + + + + + + + | Performing | Address | City/State/Zipcode | Phone Number | | Organization | | | | + + + + + | [facility] | [address] | [place] [address] | | | [place] | | | | + + + [...] [facility] | [address] | [place] [address] | | | ИРИНА ANTOINE | JT [...] + + + + + | [facility] | [address] | [place] [address] | | | SERVICES, CORE | JT [...] + + + + + | [facility] | [address] | [place] [address] | | | SERVICES, CORE | JT [...] | [facility] | | considered for monitoring manager 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 glycemic control in patients with: | LABORATORY [...] | fructosamine should be considered for monitoring manager 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 glycemic | | | control in patients [...] + + + | [facility] | [address] | [place] [address] | | | SERVICES, SPECIAL | JT [...] | [facility] | [facility] DEPT OF | | And [facility] Adult Echocardiography Laboratory [address] | CARDIOLOGY | | [place] [address] Ph: | | | Pt Name: RON MCKEON | | | Study Date/Time 10/11/2017 / 11:47:35 AMMRN: [id number] | | | Most recent prior: 03/30/2017Acc #: [id number] | | | No. previous echos: 4DOB: 1955 61 years Heart | | | Rate: 84 bpmHeight: 69.0 in Blood | | | Pressure: 115/68 mm/HgWeight: 196.0 lb | | | Gender: MBSA: 2.05 m2 | | | Order ID: [id number] Transport Technician: Shahab Sutton [facility] | | | Referring Provider: Kimmy LowPatient Location: [address] [place] [address] | | | Performed: 2D, Color flow, [...] | | | presents on transfer from [place] for consideration of complex PCI | | [...] (prox) 3.70 cm 18.1 | | | mm/y1Yjlwsuoybs of chamber size and geometry is accomplished through | | | the incorporation of linear, volumetric, and indexed values Wall | | | Scoring: Report electronically signed by: [id number] Khurram Bedoya | | | (10/11/2017, 12:59:49 [...] | | | |Report electronically signed by: [id number] Khurram Bedoya MD (10/11/2017, 12:59:49 | | |PM) | | | | | | | | | | | | Final (Updated) | | + + + + + | Procedure Note | + + | Interface, Cardiology Results - 10/11/2017 1:00 PM [facility] | | [facility] E[facility]ocardi[facility] | | [place], [place] [address] Pt Name: RNO Chaudhary | | MIKE Study Date/Time 10/11/2017 / 11:47:35 AMMRN: [id number] Most | | recent prior: 03/30/2017Acc #: [id number] No. previous echos: 4DOB: | | 1955 61 years Heart Rate: 84 bpmHeight: 69.0 in Blood | | Pressure: 115/68 mm/HgWeight: 196.0 lb Gender: MBSA: | | 2.05 m2 Order ID: [id number] Transport Technician: Shahab Sutton RDCSReferring | | Provider: Kimmy [...] use disorder who presents on transfer from [place] | | for consideration of complex PCI [...] Ao (prox) | | 3.70 cm 18.1 mm/h2Dgliqnkvgt of chamber size and geometry is accomplished | | through the incorporation of linear, volumetric, and indexed values Wall Scoring: Report | | electronically signed by: [id number] Khurram Bedoya MD (10/11/2017, 12:59:49 PM) | [...] | | | |Report electronically signed by: [id number] Khurram Bedoya MD (10/11/2017, 12:59:49 | |PM) | | | | | | | | Final (Updated) | + + + + + + + | Performing | Address | City/State/Zipcode | Phone Number | | Organization | | | | + + + + + | [facility] | [address] | [place], [place] | | | CARDIOLOGY | [address] | [address] | | + + + + + X-RAY PORTABLE CHEST 1 VIEW (10/11/2017 11:24 AM PST) + + | Specimen | + + | | + + + + + | Narrative | Performed At | + + + | STUDY: ND CHEST 1 VIEW COMPARISON: 03/21/17. HISTORY: Cough. [...] Interface - 10/11/2017 1:51 PM PST STUDY: ND CHEST 1 | | VIEW COMPARISON: 03/21/17.HISTORY: [...] | | + +---------+ + + | [facility] RADIOLOGY | | | | | VOICE [...] + + + + + | [facility] | [address] | [place] [address] | | | SERVICES, CORE | JT [...] + + + + + | [facility] | [address] | [place] [address] | | | SERVICES, CORE | PARK [...] | | | LABORATORY | | | MALTESE | | | SERVICES, | | | [...] + + + + + | [facility] | [address] | [place] [address] | | | SERVICES, CORE | JT [...] + + + + + | [facility] | [address] | [place] [address] | | | SERVICESИРИНА | [address] [...] [facility] | [address] | [place] [address] | | | ИРИНА ANTOINE | JT [...] + + + + + | [facility] | [address] | [place] [address] | | | SERVICES, CORE | JT [...] + + + + + | [facility] | [address] | [place] [address] | | | SERVICES, CORE | [address] | | | + + + + + 12 LEAD ECG (10/10/2017 11:13 PM PST) + + + + + + | Component | Value | Ref Range | Performed | Pathologist | | | | | At | Signature | + + + + + + | VENTRICULAR | 79 | bpm | [facility] | | | RATE | | [...] MIKET OF | [address] | [place], [place] | | | CARDIOLOGY | [address] | [address] | | + + + + + [...] zia coronary artery of [place] heart, angina | | presence unspecified | [...] of unspecified type of vessel, | | [place] or graft | + + | Paroxysmal atrial flutter (HCC) Atrial flutter | + + | Chronic systolic congestive heart failure (HCC) Chronic systolic heart failure | + + | Encounter for insertion of cardiac resynchronization therapy defibrillator (SOLID WASTE MANAGEMENT ENGINEER-D) | + + | Influenza, pneumonia Influenza [...] | | | | last modification) on [facility] 10/15/17 | | | | | | [...]
--- OUTSIDE RECORDS SUMMARY | ~2020-03-04 | XMS | Encounter Summary ---
Demographics + + + | Address | [address] | | | [place] [address] | + + + | Home Phone [...] [place], [place] | | | | | [address] | | + + + + + Care Team Providers + +------+ + | Care It Trainer Name | Role | Phone | + +------+ + PCP | Unavailable | + +------+ + Encounter Details +--------+---------+ + + + | Date | Type | Department | Care Team | Description | +--------+---------+ + + + | 12/03/ | Office | [facility] | Randy Figueroa, | Coronary artery | | 2018 | Visit | MED CTR CARDIAC | MD [address] | disease involving | | | | REHABILITATION [address] | [place], | [place] coronary | | | | [address] [place] | [place] [address] | artery of [place] | | | | [place] [address] | [phone] | heart without angina | | | | [phone] | | pectoris (Primary | | | [...] Gael Ortega - 12/03/2017 9:00 AM PDT [facility] [address] [facility] [address] Cardiac Rehab Date: 12/03/2017 Patient Information Patient Name: Bob Will Date of : 1955 Age: 62 y.o. Encounter Diagnoses Code Name Primary? I25.10 Coronary artery disease involving [place] coronary artery of [place] heart without angina pectoris Yes I25.5 Ischemic [...] | | | | [address] [place] | | | | | | [address] | | | | | | | | +--------+ + + + + | 04/16/ | Office | Cardiology | Alin Anderson | | 2019 | Visit | | MD [address] | | | | | | [address] | | | | | | [place] [address] | | | | | | [phone] | | | | | | | [...] [place] | | | | | | [address] | | | | | | | | +--------+ + + + + documented as of this encounter Visit Diagnoses + + | Diagnosis | + + | Coronary artery disease involving [place] coronary artery of [place] heart without | | angina pectoris - Primary | + + | Ischemic cardiomyopathy Other specified forms of chronic ischemic heart disease | + + documented in this encounter"
--- OUTSIDE RECORDS SUMMARY | ~2020-03-04 | XMS | Encounter Summary ---
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 zohaib | | (In-office) [...] | systolic CHF | [address] | [place], [place] | | | | | (congestive | [place], [place] | [address] Phone: | | | | | heart | [address] | [phone] | | | | | failure) | Phone: | Fax: | | | | | (HCC) | [phone] | [phone] | | | | | Biventricula | Fax: | | | | | | r ICD | [phone] | | | | | | (implantable [...] + + | 10/28/ | Procedure | [facility] | | POWDER CORE TESTER-D (AICD) | | 2020 | visit | [facility]ARDIOLOGY [facility] | | Medtronic 10/16/17 | | | | [address] | | EULOG[address] | | | | [place], [place] | | (Primary Dx) | | | | [address] | | | | | | [phone] | | | +--------+ + + + [...] of this encounter Procedure Notes Elsa Romero, Identity Management Consultant - 10/28/2019 11:00 AM PSTAssociated Order(s): DEVICE INT ERROGATIONProcedure(s): DEVICE INTERROGATIONPre-Procedure Diagnose(s): Biventricular ICD (im plantable cardioverter-defibrillator) in placeDevice interrogation done by Teresita Anderson Any events or changes listed in office note. See device data attached to scheduled encounter for additional details. archives specialist: Elsa Romero, Device Clinic documented in this [...] | | | | [address] [facility] | | | | | | [address] [place] | | | | | | [address] | | | | | | | | +--------+ + + + + | 04/16/ | Office | Cardiology | Alin Anderson | | | 2019 | Visit | | MD Cheryl Arreguin | | | | | | [address] | | | | | | [place] [address] | | | | | | [phone] | | | | | | | [...] [place] | | | | | | [address] | | | | | | | | +--------+ + + + + documented as of this encounter Procedures + +--------+ + + + | Procedure Name | Priori | Date/Time | Associated Diagnosis | Comments | | | ty | | | | + +--------+ + + + | DEVICE INTERROGATION | Routin | 10/28/2019 | POWDER CORE TESTER-D (AICKatie) | Results for this | | | e | 11:00 AM | Medtronic 10/16/17 | procedure are in the | | | | PST | EULOGIO Darby | results section. | + +--------+ + + + documented in this encounter Results Device Interrogation (10/28/2019 11:00 AM PST) + + + | Narrative | Performed At | + + + | Elsa Romero, Identity Management Consultant 2019 9:05 AM Device | [facility] | | interrogation done by Teresita Anderson Any events or changes listed in | | | office note. See device data attached to scheduled encounter for | | | additional details. archives specialist: Elsa Romero, Device Clinic | | + + + + +---------+ + + | Performing | Address | City/State/Zipcode | Phone Number | | Organization | | | | + +---------+ + + | [facility] | | | | + +---------+ + + documented in this encounter Visit Diagnoses + + | Diagnosis | + + | POWDER CORE TESTER-D (GABBI) Medtronic 10/16/17 EULOGIO Darby - Rigoberto | + + documented in this encounter"
--- OUTSIDE RECORDS SUMMARY | ~2020-03-04 | XMS | Encounter Summary ---
Demographics + + + | Address | [address] | | | [place] [address] | + + + | Home Phone [...] [place] | | | | | [address] | | + + + + + Care Team Providers + +------+ + | Care Washer Repairman Name | Role | Phone | + [...] [address] | [address] [facility] | | | | | [place], [place] | [address] [place], [place] | | | | | [address] | [address] | | | | | [phone] | | | +--------+ + + + [...] chloride dose increase. elephone Encounter - Sharon Saladna RN - 06/21/2019 9:41 AM PDTPatient called [...] | | | | | [address] [facility] | | | | | | [address] | | | | | | [address] | | | | | | | | +--------+ + + + + | 04/16/ | Office | Cardiology | Alin Anderson | | | 2019 | Visit | | MD Cheryl Arreguin | | | | | | [address] | | | | | | [place] [address] | | | | | | [phone] | | | | | | | | +--------+ + + + + | 04/16/ | Procedure | Cardiology | | | | 2019 | visit | | | | +--------+ + + + + | 04/25/ | Office | Cardiology | Rocio Pearl, | | | 2019 | Visit | | [address] | | | | | | [place] | | | | | | [address] | | | | | | | | +--------+ + + + + documented as of this encounter Visit Diagnoses Not on filedocumented in this encounter"
--- OUTSIDE RECORDS SUMMARY | ~2020-03-04 | XMS | Encounter Summary ---
Demographics + + + | Address | [address] | | | [place] [address] | + + + | Home Phone [...] [place] | | | | | [address] | | + + + + + Care Team Providers + +------+ + | Care Lasting Machine Operator Bed Name | Role | Phone | + [...] | Specialty | Cardiac | Diagnoses | [place], | [facility] | | | Services | Rehabilitatio | Coronary | MD Randy | | | | Required | n | artery | [address] | Rehabilitatio | | | | | disease, | [address] | n [address] | | | | | angina | [place], | [address] [place] | | | | | presence | [place] [address] | [place], [place] | | | | | unspecified, | Phone: | [address] | | | | | unspecified | [phone] | Phone: | | | | | vessel or | Fax: | [phone] | | | | | lesion type, | [phone] | Fax: | | | | | unspecified | | [phone] | | | | | whether | | | | | | | [place] or | | | | | | | transplanted | | | | | | | heart Post | | | | | | | PTCA | | | | | | | Procedures | | | | | | | [place] | | | | | | | [...] + + + + | 06/02/ | Orders Only | [facility] | Randy Figueroa, | Coronary artery | | 2018 | | CARDIOLOGY [address] | [address] [facility] | disease, angina | | | | [place], | [place], | presence | | | | [place] [address] | [place] [address] | unspecified, | | | | [phone] | [phone] | unspecified vessel | | | | | | or lesion type, | | | | | | unspecified whether | | | | | | [place] or | | | | | | transplanted heart | | | | | | (Primary Dx); Post | | | | | | PTCA | +--------+ + + + + Social [...] [place] | | | | | | [address] | | | | | | | | +--------+ + + + + | 04/16/ | Office | Cardiology | Alin Anderson | | | 2019 | Visit | | MD [address] | | | | | | [address] | | | | | | [place] [address] | | | | | | [phone] | | | | | | | [...] [place] | | | | | | [address] | | | | | | | [...] | Rehab | Referral | e | disease, angina | starting 06/02/2018 | | | | | presence | until 06/02/2019 | | | | | unspecified, | | | | | | unspecified vessel | | | | | | or lesion type, | | | | | | unspecified whether | | | | | | [place] or | | | | | | transplanted heart | | | | | | Post PTCA | | + + +--------+ + + documented as of this encounter Visit Diagnoses + + | Diagnosis | + + | Coronary artery disease, angina presence unspecified, unspecified vessel or lesion | | type, unspecified whether [place] or transplanted heart - Primary | + + | Post PTCA Postsurgical percutaneous transluminal coronary angioplasty status | + + documented in this encounter"
--- OUTSIDE RECORDS SUMMARY | ~2020-03-04 | XMS | Encounter Summary ---
Demographics + + + | Address | [address] | | | [place] [address] | + + + | Home Phone [...] | [facility] | | | and [place] | + + + | Address | Unknown | + + + | Phone | Unavailable | + + + Support + + + + + | Name | Relationship | Address | Phone | + + + + + | [place] Will | ECON | [place] | | | | | [address] | | + + + + + Care Team Providers + +------+ + | Care Muffler Hand Name | Role | Phone | [...] [address] | | | | | [place], [place] | [address] [place], [place] | | | | | [address] | [address] | | | | | [phone] | | | +--------+ + + + [...] | | | | | [address] [facility] | | | | | | [address] | | | | | | [address] | | | | | | | | +--------+ + + + + | 04/16/ | Office | Cardiology | Alin Anderson | | | 2019 | Visit | | MD Cheryl Arreguin | | | | | | [address] | | | | | | [place] [address] | | | | | | [phone] | | | | | | | [...] [place] | | | | | | [address] | | | | | | | [...]
--- OUTSIDE RECORDS SUMMARY | ~2020-03-04 | XMS | Encounter Summary ---
Demographics + + + | Address | [address] | | | [place] [address] | + + + | Home Phone [...] [place], [place] | | | | | [address] | | + + + + + Care Team Providers + +------+ + | Care Mason Helper Name | Role | Phone | [...] | | involving | [address] | [place] | | | | | [place] | [address] | [place] | | | | | coronary | [address] | [address] | | | | | artery of | Phone: | Phone: | | | | | [place] heart | [phone] | [phone] | | | | | without | Fax: | Fax: | | | | | angina | [phone] | [phone] | | | | | pectoris | | | +--------+ + + + + + Encounter Details +--------+---------+ + + + | Date | Type | Department | Care Team | Description | +--------+---------+ + + + | 09/09/ | Office | [facility] | Randy Figueroa, | Coronary artery | | 2019 | Visit | MED CTR CARDIAC | MD [address] | disease involving | | | | REHABILITATION [address] | [address] [place], | [place] coronary | | | | [address] [place] | [place] [address] | artery of [place] | | | | [place] [address] | [phone] | heart without angina | | | | [phone] | | pectoris (Primary | | | [...] Mchugh RRT - 09/09/2018 10:[address] [facility] C[facility] RE[facility]IL[facility]ATION [address] [place] [address] Cardiac Rehab Date: 09/09/2018 Patient Information Patient Name: Bob Will Date of : 1955 Age: 62 y.o. Encounter Diagnoses Code Name Primary? I25.10 Coronary artery disease involving [place] coronary artery of [place] heart without angina pectoris Yes Number of [...] [place] | | | | | | [address] | | | | | | | | +--------+ + + + + | 04/16/ | Office | Cardiology | Alin Anderson | | | 2019 | Visit | | MD Cheryl Arreguin | | | | | | [address] | | | | | | [place] [address] | | | | | | [phone] | | | | | | | [...] [place] | | | | | | [address] | | | | | | | | +--------+ + + + + documented as of this encounter Visit Diagnoses + + | Diagnosis | + + | Coronary artery disease involving [place] coronary artery of [place] heart without | | angina pectoris - Primary | + + documented in this encounter"
--- OUTSIDE RECORDS SUMMARY | ~2020-03-04 | XMS | Encounter Summary ---
Demographics + + + | Address | [address] | | | [place] [address] | + + + | Home Phone [...] [place] | | | | | [address] | | + + + + + Care Team Providers + +------+ + | Care Operations Vice President Name | Role | Phone | + [...] | Coronary | Jenny, | [address] | | | | | artery | JERICHO SantoP | [place], | | | | | disease | [address] | [place] | | | | | involving | [place] | [address] | | | | | [place] | [place], | Phone: | | | | | coronary | [place] | [phone] | | | | | artery of | [address] | Fax: | | | | | [place] heart | Phone: | [phone] | | | | | without | [phone] | | | | | | angina | Fax: | | | | | | pectoris | [phone] | | | | | | Acute | | | | | | | anterior | | | | | | | wall [place] | | | | | | | ([facility]) | | | | | | | [...] [address] | | | | | [place], | [place], | | | | | [place] [address] | [place] [address] | | | | | [phone] | [phone] | | | | | | | [...] [place] | | | | | | [address] | | | | | | | | +--------+ + + + + | 04/16/ | Office | Cardiology | Alin Anderson | | | 2019 | Visit | | MD [address] | | | | | | [address] | | | | | | [place] [address] | | | | | | [phone] | | | | | | | [...] [place] | | | | | | [address] | | | | | | | [...] | | | | | | n [place] | | | | | + +---------+ [...] + + | Coronary artery disease involving [place] coronary artery of [place] heart without | | angina pectoris - Primary | + + | Acute anterior wall [place] (HCC) Acute myocardial infarction of other anterior wall, | | episode of care unspecified | + + documented in this encounter"
--- OUTSIDE RECORDS SUMMARY | ~2020-03-04 | XMS | Encounter Summary ---
Demographics + + + | Address | [address] | | | [place] [address] | + + + | Home Phone | | + + + | Preferred Language | Unknown | + + + | Marital Status | | + + + | Mu-Ism Affiliation | NRP | + + + | Race | White | + + + | Ethnic Group | Not or | + + + Author + + + | Author | [facility] | + + + | Organization | [facility] | + + + | Address | Unknown | + + + | Phone | Unavailable | + + + Support + + + + + | Name | Relationship | Address | Phone | + + + + + | [place] Will | ECON | [address] | | | | | [place] [address] | | + + + + + Care Team Providers + +------+ + | Care Revenue Accounting Manager Name | Role | Phone | [...] | | | | | [facility] | | | | | | Hospital Admitting | | | | | | Desk Located on the | | | | | | 9th floor | | | | | | [place], [place] | | | | | | [address] | | | +--------+ + + + [...]
--- OUTSIDE RECORDS SUMMARY | ~2020-03-04 | XMS | Encounter Summary ---
Demographics + + + | Address | [address] | | | [place] [address] | + + + | Home Phone [...] [place], [place] | | | | | [address] | | + + + + + Care Team Providers + +------+ + | Care Launching Pad Mechanic Name | Role | Phone | [...] | Ischemic | Jenny, | [address] | | | | | cardiomyopat | Hansa, DIRECTOR OF COMMUNITY CENTER | [place], | | | | | hy | [address] | [place] | | | | | Procedures | [place] | [address] | | | | | ECHO | [place], | Phone: | | | | | Complete [place] | [place] | [phone] | | | | | ECHO HEART | [address] | Fax: | | | | | [place] | Phone: | [phone] | | | | | [address] | [phone] | | | | | | [place]OPPLER [place] | Fax: | | | | | | ECHO HEART | [phone] | | | | | | [place] [...] + + | 09/02/ | Office | [facility] | Jenny, | Ischemic | | 2017 | Visit | CARDIOLOGY [address] | [address]SH [address] | cardiomyopathy | | | | [place], | [place], | (Primary Dx); | | | | [place] [address] | [place] [address] | Coronary artery | | | | [phone] | [phone] | disease involving | | | | | | [place] coronary | | | | | | artery of [place] | | | | | | heart without angina | | | | | | pectoris; Acute | | | | | | anterior wall [place] | | | | | | (HCC) [...] coronary artery disease post recent anterior wall [place], post PTCA and stents of the left [...] Active Problem List Diagnosis Acute anterior wall [place] CAD (coronary artery disease) Ischemic cardiomyopathy CURRENT [...] now present Confirmed by LAUREN CHESTER MD ([id number]) on 05/05/2017 6:03:03 AM LAB RESULTS reviewed during visit today primarily from [facility]: LIPID No results found for: CHOL, [...] 194 03/15/2017 I reviewed records from [facility] for office visit on 06/07/2017 w hich [...] requiring IABP, pressor (dopamine, norepin ephrine). [facility] and [facility] were on divert. Patient wasn't transferred to [facility]. B. Echocardiogram 03/17/2017 shows LV ejection fraction is severely decreased, vi sually estimated left ventricular ejection fraction is 20 - 25%, left ventricular systolic t hickening is segmentally abnormal, mildly reduced RV systolic function. Normal RV size, no s ignificant valvular abnormalities seen, compared to the most recent exam dated, 03/15/2017, there is no significant changes C. At [facility], patient had another STEMI code 03/29, with [...] follow up closely with a local maintenance department technician in [place]. He wias dis chargeed with a LifeVest [...] He is in a class I of [place] [employer] functional class. Heart fail ure [...] Thrombocytosis A. Problem was resolved at [facility]. 6. Positive screening for PAD PLAN: 1. [...] this chart may have been created with Clutter voice recognition software. Occasi onal wrong-word or [...] [place] | | | | | | [address] | | | | | | | | +--------+ + + + + | 04/16/ | Office | Cardiology | Alin Anderson | | | 2019 | Visit | | MD Cheryl Arreguin | | | | | | [address] | | | | | | [place] [address] | | | | | | [phone] | | | | | | | [...] [place] | | | | | | [address] | | | | | | | [...] New | 28 - 83 mg/dL | [facility] | | | | HDL Reference Range [...] ST. | 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 Wire Fence Erector Procedure Type of Study TTE | | [...] | | | Index: 43 mL/m^2 EF Hpawhmjyx17% | | | Left Ventricle Diastolic Dimension: [...] | [place] Vol/BSA Index: 43 mL/m^2 EF Rwvpambcp20% | | | | | | Left [...] Room Number J Patient | | Number [id number] Date of Study 11/24/2017 Visit Number [id number] | | Referring Physician THERESE SY Number Date of | | 1955 Transcription Manager TUCKER DOVE Age 62 | | year(s) Interpreting LAUREN CHESTER MD | | Account Resolution Expert Gender Male 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 TechnicianProcedureType [...] Vol/BSA Index: 43 mL/m^2 EF | | Ngdsdnvlc97% Left Ventricle Diastolic Dimension: 4.9 cm Septum [...] | [place] Vol/BSA Index: 43 mL/m^2 EF Mzyqpovjg75% | | | | Left Ventricle | [...] perce heart without | | angina pectoris | + + | Acute anterior wall [place] (HCC) Acute myocardial infarction of other anterior wall, | | episode of care unspecified | + + documented in this encounter
--- OUTSIDE RECORDS SUMMARY | ~2020-03-04 | XMS | Encounter Summary ---
Demographics + + + | Address | [address] | | | [place] [address] | + + + | Home Phone | | + + + | Preferred Language | Unknown | + + + | Marital Status | | + + + | Jain Affiliation | Unknown | + + + | Race | Unknown | + + + | Ethnic Group | Unknown | + + + Author + + + | Author | [facility] | | | and [place] | + + + | Organization | [facility] | | | and [place] | + + + | Address | Unknown | + + + | Phone | Unavailable | + + + Support + + + + + | Name | Relationship | Address | Phone | + + + + + | [place] Will | ECON | [place] | | | | | [address] | | + + + + + Care Team Providers + +------+ + | Care Fuel Oil Clerk Name | Role | Phone | [...] | | | [address] | [address] | | | | | [place] [address] | | | | | | [phone] | | | +--------+---------+ + + + [...] of this encounter Progress Notes Kathy Garcia, PROCUREMENT TECHNICIAN - 08/25/2019 11:00 AM PSTFormatting of this note might be different f rom the original. 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 Patient's states that his PCP [...] Healthy Dietary Education Date: 06/02/19 -Referral to Geotechnical Engineering Technician: Date: -DVD: Healthy Eating For Life Date: [...] exercise until stable. Date: Range: -Referral to Communications Professional Date: Education Points listed below- Date Completed: [...] 2:25 PM Patient Name: Bob Will/: 1955/ [facility] [address] [place] [address] Cardiac Rehab Date: 08/25/2019 Patient Information Patient [...] [place] | | | | | | [id number] | | | | | | | | +--------+ + + + + | 04/16/ | Office | Cardiology | Alin Anderson | | | 2019 | Visit | | MD [address] | | | | | | [address] | | | | | | [place] [address] | | | | | | [phone] | | | | | | | [...] [place] | | | | | | [address] | | | | | | | | +--------+ + + + + documented as of this encounter Visit Diagnoses + + | Diagnosis | + + | Chronic systolic CHF (congestive heart failure) (HCC) | + + documented in this encounter
--- OUTSIDE RECORDS SUMMARY | ~2020-03-04 | XMS | Encounter Summary ---
Demographics + + + | Address | [address] | | | [place] [address] | + + + | Home Phone [...] [place] | | | | | [address] | | + + + + + Care Team Providers + +------+ + | Care Barratte Operator Name | Role | Phone | [...] | | Atherosclero | MD Lauro | [address] | | | | | tic heart | [address] | | | | | disease of | [address] | [place], | | | | | [place] | [place], | [place] [address] | | | | | coronary | [place] | Phone: | | | | | artery | [address] | [phone] | | | | | without | Phone: | Fax: | | | | | angina | [phone] | [phone] | | | | | pectoris ST | Fax: | | | | | | elevation | [phone] | | | | | | (STEMI) [...] Description | +--------+---------+ + + + | 07/22/ | Office | [facility] | [place], | PAD (peripheral | | 2018 | Visit | CARDIOLOGY [address] | Hansa, YOUTH PROBATION OFFICER [address] | artery disease) | | | | [place], | [place], | (HCC) (Primary Dx); | | | | [place] [address] | [place] [address] | Acute anterior wall | | | | [phone] | [phone] | HI (HCC); Coronary | | | | | | artery disease | | | | | | involving [place] | | | | | | coronary artery of | | | | | | [place] heart without | | | | | | angina pectoris; | | | | | | Ischemic | | | | | | cardiomyopathy; | | | | | | Abdominal aortic | | | | | | aneurysm (AAA) | | | | | | without rupture | | | | | | (HCC); | | | | | | Atherosclerosis of | | | | | | [place] coronary | | | | | | artery of [place] | | | | | | heart [...] + + + | Blood Pressure | 112/62 | 07/22/2018 8:37 AM | | | | | PST | | + + + + + | Pulse | 58 | 07/22/2018 8:37 AM | | | | | PST | | + + + + + | Temperature | - | - | | + + + + + | Respiratory Rate | 18 | 07/22/2018 8:37 AM | | | | | PST | | + + + + + | Oxygen Saturation | - | - | | + + + + + | Inhaled Oxygen | - | - | | | Concentration | | | | + + + + + | Weight | 100 kg (220 lb 7.4 | 07/22/2018 8:37 AM | | | | oz) | PST | | + + + + + | Height | 177.8 cm (5' 10") | 07/22/2018 8:37 AM | | | | | PST | | + + + + + | Body Mass Index | 31.63 | 07/22/2018 8:37 AM | | | | | PST | | + + + + + documented in this encounter Patient Instructions Patient Instructions Hansa Alvarado ARNP - 07/22/2018 8:30 AM PST1. Continue increasi ng Metoprolol succinate as indicated by Melba 2. Continue monitoring blood pressure 3. Referral to ENT for sinus issues 4. Follow up in 8 weeks 9:4 3 AM PST documented in this encounter Progress Notes Eleanor AlvaradoADARSH weldon - 07/22/2018 8:30 AM PSTFormatting of this note might be differen t from the original. PATIENT NAME: Bob Will : 1955: AGE: 62 y.o. PRIMARY CARE: Chato Matson MD OUTPATIENT FOLLOW UP VISIT Date of Service: 07/22/2018 HISTORY OF PRESENT ILLNESS: Bob Will is a 62 y.o. male with a history of coronary artery disease post recen t anterior wall HI, post PTCA and stents of the left main, LAD and LCx on 03/15/17, cardiac sh ock, left atrial appendage thrombus, recent status post stents to, UPHOLSTERER OUTSIDE-D placement in [facility] o n 10/17/2017. He is being seen today for follow up cardiomyopathy and coronary artery diseas e. He is being seen today for follow up coronary artery disease and cardiomyopathy. He was last seen 06/10/2018 at which time we have reviewed label reading in more depth and l engthily today. I also gave him more printed education about label reading and sodium leeroy nt on food He has been advised that his Entresto needs to be twice a day so he will start taking 49/51 mg twice a day Check BMP in one week. check blood pressure and pulse twice daily for two weeks and return the log to our office. He also is to check weight daily. He will be seeing the advanced hea rt failure team at [facility] next week. We will contact EP to see if he can se e patient for increasing episodes of ventricular tachycardia that had been terminated with A TP. In remote interrogation he had 65 episodes of treated VT. He is not on any antiarrhythmi c at the moment. He is going to be seen in [place] so we will let EP know about it so they can assist with recommendations about treatment . He may be a candidate for amiodarone. Since that time, he saw the Dr. David and [facility]am[facility]. He was instructed to continue with uptitration of metoprolol XL and Entresto. The plan was to leave him on amiodarone for 6 m onths and have him increase metoprolol succinate up to 100 mg by mouth twice a day. He was able to increase his Entresto with no issues. He is at tablet twice a day. He is a lready starting to up titrate his metoprolol and he is doing well so without any problems wi th hypotension at this point. He was to start cardiac rehabilitation. He has had a fair energy level. He tries to stay active. He has not been going to cardiac rehabilitation but he really wants to start again. He enjoys watch TV or go to the store i n his spare time. He has not had any chest pain or discomfort at rest or with exertion. H amy has shortness of breath all the time He has not had any lightheadedness or dizziness. He has not noticed palpitations. He has not had leg swelling. He is able to sleep laying mateus n at night without any symptoms of shortness of breath. His sinuses have been gaining gradu ally more failed and he cannot breathe at night. He wakes up scared with this because his n ose is completely plugged. He is not using the CPAP. He sleeps with oxygen nightly MEDICAL, SURGICAL, AND PERSONAL HISTORY Past Medical, Surgical, Family, and Social History are reviewed in EPIC. CURRENT PROBLEMS Patient Active Problem List Diagnosis Acute anterior wall HI Coronary artery disease involving [place] coronary artery of [place] heart without angina pectoris Ischemic cardiomyopathy UPHOLSTERER OUTSIDE-D (AICD) Medtronic 10/16/17 [facility] Stecker Implantable defibrillator reprogramming/check H/O atrial [...] Take 1,000 mg by mouth as needed. albuterol (PROVENTIL) 90 mcg/puff inhaler (ED prepack) Inhale 2 puffs into the lungs as needed. amiodarone (PACERONE) 200 mg tablet Take 2 tablets by mouth Daily. 60 tablet 5 aspirin 81 MG tablet Take 81 mg by mouth Daily. atorvaSTATin (LIPITOR) 80 MG tablet TAKE ONE TABLET BY MOUTH EVERY DAY IN THE EVENING 3 0 tablet 5 Cholecalciferol (VITAMIN D-3) 33479 units CAPS Take by mouth Once a week. clopidogrel (PLAVIX) 75 mg tablet Take 1 tablet by mouth Daily. 30 tablet 11 ENTRESTO 97-103 MG per tablet Take 1 tablet by mouth 2 times daily. furosemide (LASIX) 20 mg tablet TAKE ONE TABLET BY MOUTH DAILY 30 tablet 4 gabapentin (NEURONTIN) 300 mg capsule Take 300 mg by mouth 3 times daily. HYDROcodone-acetaminophen (NORCO) 10-325 mg per tablet Take 1 tablet by mouth as needed . ipratropium (ATROVENT) 0.06% nasal spray ipratropium bromide 42 mcg (0.06 %) nasal spra y [place] 2 sprays 3 times a day by intranasal route. melatonin 3 mg TABS Take 3 mg by mouth nightly. metFORMIN (GLUCOPHAGE) 500 mg tablet Take 500 mg by mouth 2 times daily (with breakfast & dinner). metoprolol succinate (TOPROL-XL) 50 mg 24 hr tablet Take 1 tablet by mouth Daily. (Gela ent taking differently: Take 50 mg by mouth Daily. 1 tablet of 50mg in the morning and 75mg in the evening for 1 week) 180 tablet 3 nitroglycerin (NITROSTAT) 0.4 mg [...] by mouth every 6 hours as needed. VENTOLIN HFA 108 (90 Base) MCG/ACT inhaler No current facility-administered medications for this visit. ALLERGIES No Known Allergies ROS Review of Systems Constitutional: Positive for malaise/fatigue. Respiratory: Positive for shortness of breath. Cardiovascular: Positive for orthopnea (uses oxygen). Negative for chest pain, palpitations and leg swelling. Neurological: Negative for dizziness, weakness and headaches. Lightheadedness- No OBJECTIVE: PHYSICAL EXAM BP 112/62 | Pulse 58 | Resp 18 | Ht 1.778 m (5' 10") | Wt 100 kg (220 lb 7.4 oz) | BMI 31.63 kg/m Physical Exam Constitutional: He is oriented to person, place, and time. He appears well-developed and we ll-nourished. Male individual arrives with his , without acute distress. He is utilizing a electric wheelchair Neck: Normal carotid pulses and no JVD [...] Interval:176 ms P Duration:196 ms P Horizontal Depue:-6 deg P Front Depue:72 deg Q Onset:508 ms QRSD Interval:148 ms QT Interval:500 ms QTcB:508 ms QTcF:505 ms QRS Horizontal [place]ue:217 deg QRS Depue:167 deg I-40 Horizontal Depue:188 deg I-40 Front Depue:148 deg T-40 Horizontal Depue:231 deg T-40 Front Depue:163 deg T Horizontal Depue: deg T Wave Depue:15 deg S-T Horizontal Depue:67 deg S-T Front Depue:-59 deg Severity:- ABNORMAL ECG - INTERP:ATRIAL-SENSED VENTRICULAR-PACED COMPLEXES Electronically signed by: , 05-20-2018 05:48:28 LAB RESULTS reviewed during visit today primarily from [facility]: LIPID Lab Results Component Value Date CHOL 94 (L) 06/10/2018 TRIG 211 (H) 06/10/2018 HDL 26 (L) 06/10/2018 LDL 26 06/10/2018 CHOLHDL 3.6 06/10/2018 LDLEX 42 10/10/2017 HDLEX 21 10/10/2017 TRIGEX 131 10/10/2017 CHOLEX 89 10/10/2017 CHEMISTRY Lab Results Component Value Date GLU 115 (H) 06/10/2018 GLUEX 154 (A) 06/07/2018 NA 136 06/10/2018 NAEX 141 06/07/2018 K 4.6 06/10/2018 KEX 3.9 06/07/2018 CL 104 06/10/2018 CLEX 104 06/07/2018 CO2 24 06/10/2018 CO2EX 24 06/07/2018 CALCIUM 9.1 06/10/2018 ALKPHOS 78 05/14/2018 AST 29 05/14/2018 ASTEX 15 04/22/2018 ALT 57 05/14/2018 ALTEX 21 04/22/2018 BILITOT 0.5 05/14/2018 CREA 1.63 (H) 06/10/2018 BUN 24 (H) 06/10/2018 EGFR 42 (L) 05/21/2018 EGFREX 47 06/07/2018 CREEX 1.50 (A) 06/07/2018 HEMATOLOGY Lab Results Component Value Date WBC 6.1 05/21/2018 WBCEX 10.2 04/22/2018 HGB 13.0 (L) 05/21/2018 HGBEX 14.0 04/22/2018 HCT 38.0 (L) 05/21/2018 HCTEX 43.0 04/22/2018 PLT 135 (L) 05/21/2018 PLTEX 171 04/22/2018 Lab Results Component Value Date BNP 366 (H) 06/10/2018 I reviewed records from [facility] advanced heart failure clinic for office visit on 06/2018 which is summarized in the HPI. Above data [...] shock requiring IABP, pressor (dop amine, norepinephrine). [facility] were on divert. Patient wasn' t transferred to [facility]. B. Echocardiogram 03/17/2017 shows LV ejection fraction is severely de creased, visually estimated left ventricular ejection fraction is 20 - 25%, left ventricular systolic thickening is segment ally abnormal,mildly reduced RV systolic function. Normal RV size, no significant valvular abnormalities seen, compared to the most recent exam dated, 03/15/2017, there is no significant changes C. At [facility], patient had another STEMI code 03/29, [...] to follow up closely with a local woven label designer in [place] . He wias dischargeed with a LifeVest [...] y we will transfer the patient to [facility] for consideration of urgent coronary revascularizatio [...] ventricular systolic function continued to deteriorate. N. 07/22/2018 He denies any angina at rest or on exertion. He has b een trying to stay physically active. He is in class III of the [place] [employer] functional class. Heart failure stage [...] in the se regions. C. S/P Medtronic UPHOLSTERER OUTSIDE-D 10-16-17 Dr Darby, [facility]. Ice interrogation today shows one episode [...] will be needing to go back to [place] in the summer. F. 07/22/2018 patient has tolerated higher doses of heart failure medications. He continu es in the way of up titrating metoprolol succinate. He would like to go back to cardiac jennie abilitation since he has not been able to exercise on his own. He has had no angina or no i ncrease in dyspnea and he has not had any fluid retention since the heart failure team in [facility] told him to continue taking his furosemide on a daily basis. He is in class II of th e [place] Heart [employer] functional class heart failure stage C. We will continue to up titrate medications and recheck echocardiogram once the maximal medication therapy has been achieved. 3. Ventricular tachycardia: A. Electrophysiology Study 10/16/17 shows positive EP study for induc ible ventricular tachycardia. B.In remote interrogation he had 65 episodes of treated VT. He is n ot on any antiarrhythmic. He is going to be seen in [place] so we will let EP know about it so they can assist with recommendations about treatment . He may be a candidate for amiodar one. 4. Left atrial appendage thrombus. Not addressed today. A. Noted on MARKY in the [place] during ECMO decannulation. Completedhep jennie gtt bridge 03/29 to therapeutic warfarin. Not on warfarin any more, no evidence of throm bus in last echocardiogram 5. Paroxysmal atrial flutter. Not addressed today. A. Episode was seen while vision was hospitalized a week ago. Thi s was after his HI and at the same time patient was having ventricular tachycardia. He was initiated on amiodarone and then discontinued before discharge. The plan is to monitor thro ugh his device and see if this is a problem that needs to be addressed. Patient is not on anticoagulation he was left that way from [facility]. Patient has had several GI bleeds [...] A. eGFR is 46 06/2018 PLAN: 1. He continues in the way of up titrating metoprolol succinate. He would like to go back to cardiac rehabilitation since he has not been able to exercise on his own. He has had no angina or no increase in dyspnea and he has not had any fluid retention since the heart fail ure team in [place] told him to continue taking his furosemide on a daily basis. 2. He will do a blood pressure log and bring it to his next appointment. 3. He will follow up in 4 to 6 weeks for office visit, or sooner with concerns. He will g et back to our office if he is having any issues Portions of this chart may have been created with [employer] voice recognition software. Occasi onal wrong-word or sound-alike substitutions may have occurred due to the inherent canseco itations of voice recognition software. Please read the chart carefully and recognize, using context, where these substitutions have occurred.' documented in this encounter Plan of Treatment +--------+ + + + + | Date | Type | Specialty | Care Team | Description | +--------+ + + + + | 03/12/ | Office | Nephrology | Litzy, | | | 2019 | Visit | | ADARSH [address] | | | | | | [address] | | | | | | [address] | | | | | | [address] | | | | | | | | +--------+ + + + + | 04/16/ | Office | Cardiology | Alin Anderson | | | 2019 | Visit | | MD Cheryl Arreguin | | | | | | [address] | | | | | | [place] [address] | | | | | | [phone] | | | | | | | [...] [place] | | | | | | [address] | | | | | | | [...] | Coronary artery disease involving [place] coronary artery of [place] heart without | | angina pectoris | + + | Ischemic cardiomyopathy Other specified forms of chronic ischemic heart disease | + + | Abdominal aortic aneurysm (AAA) without rupture (HCC) | + + | Atherosclerosis 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
--- OUTSIDE RECORDS SUMMARY | ~2020-03-04 | XMS | Encounter Summary ---
Demographics + + + | Address | [address] | | | [place] [address] | + + + | Home Phone [...] [place] | | | | | [address] | | + + + + + Care Team Providers + +------+ + | Care Commercial Account Executive Name | Role | Phone [...] + | 06/06/ | Telephone | [facility] | Jenny, | Other | | 2018 | | CARDIOLOGY [address] | ADARSH Santo [address] | | | | | [place], | [place], | | | | | [place] [address] | [place] [address] | | | | | [phone] | [phone] | | | | | | | [...] patient is transferring her cardiac care to [facility]. Please let him know that: 1. I have received the message and note from Maria Esther. His heart rate was set at 50 bpm as a mi nimal by [facility] advanced heart failure team as part of the treatment of his VT along with his amiodarone. 2. I have talked to Sukhdev (nephrology) 3. I am aware he will be going to be seeing at [facility] cardiology in June. 4. I have told [...] | | | | [address] [facility] | | | | | | [address] | | | | | | [address] | | | | | | | | +--------+ + + + + | 04/16/ | Office | Cardiology | Alin Anderson | | | 2019 | Visit | | MD Cheryl Arreguin | | | | | | [address] | | | | | | [place] [address] | | | | | | [phone] | | | | | | | [...]
--- OUTSIDE RECORDS SUMMARY | ~2020-03-04 | XMS | Encounter Summary ---
Demographics + + + | Address | [address] | | | [place] [address] | + + + | Home Phone [...] + + + | Author | [facility] | + + + | Organization | [facility] | + + + | Address | Unknown | + + + | Phone | Unavailable | + + + Support + + + + + | Name | Relationship | Address | Phone | + + + + + | Venice Will | ECON | [address] | | | | | [place] [address] | | + + + + + Care Team Providers + +------+ + | Care Track Hoe Operator Name | Role | Phone | [...] + | 10/16/ | Anesthesia | Cardiac Pug Machine Operator | Sandie Garcia MD | | | 2018 | Event | at [facility] [address] | [address] | | | | | [address] | Tabitha Garcia [place], | | | | | [facility], | [place] [address] | | | | | Floor [place], [place] | [phone] | | | | | [address] | | | | | | [phone] | Terry Garvin, | | | | | | LEATHER CARVER [address] | | | | | | [address] | | | | | | [place], [place] | | | | | | [address] | | | | | | [phone] | | | | | | | [...] | /0 | 0 | | reviewed, PARTera held, anesthetic plan made or approved by [...] | | (groin access for medical laboratory scientist) | RN | | +--------+ + + + | Periph | 10/15/17; 1115; BARRIE PAUL, | 10/15/17 111 by | | | wilber | RT (R); Left; Antecubital; 20 g; [...] Groin; 7 Fr.; Femoral; Venous; | Keeley Izagiurre, | Keeley Izaguirre | Arina mendez | [...] 4:34 | | | | | Starting 10/16/17 at 1118, | | PM PST | [...] 10/16/17 at 1112, Until 10/16/17 | | PM PST | [...] 4:32 | | | | | Starting Thu10/16/17 at 1137, | | PM PST | [...] | Starting Thu10/16/17 at 1106, | | PM PST | [...]
--- OUTSIDE RECORDS SUMMARY | ~2020-03-04 | XMS | Encounter Summary ---
Demographics + + + | Address | [address] | | | [place] [address] | + + + | Home Phone [...] [place] | | | | | [address] | | + + + + + Care Team Providers + +------+ + | Care Mechanical Assembly Technician Name | Role | Phone | [...] | Atherosclero | MD Lauro | [address] | | | | | tic heart | [address] | [address] | | | | | disease of | [address] | [place], | | | | | [place] | [place], | [place] [address] | | | | | coronary | [place] | Phone: | | | | | artery | [address] | [phone] | | | | | without | Phone: | Fax: | | | | | angina | [phone] | [phone] | | | | | pectoris ST | Fax: | | | | | | elevation | [phone] | | | | | | (STEMI) [...] + | 07/22/ | Office | [facility] | [place], | PAD (peripheral | | 2018 | Visit | CARDIOLOGY [address] | Hansa, VESSEL SLAG WORKER [address] | artery disease) | | | | [place], | [place], | (HCC) (Primary Dx); | | | | [place] [address] | [place] [address] | Acute anterior wall | | | | [phone] | [phone] | HI (HCC); Coronary | | | | | | artery disease | | | | | | involving [place] | | | | | | coronary artery of | | | | | | [place] heart without | | | | | [...] of | | | | | | [place] coronary | | | | | | artery of [place] | | | | | | heart [...] appendage thrombus, recent status post stents to, DROSSER-D placement in [facility] o n 10/17/2017. He is being seen [...] the [facility]. We will contact EP to see if he can se e patient for increasing episodes of ventricular tachycardia that had been terminated with A TP. In remote interrogation he had 65 episodes of treated VT. He is not on any antiarrhythmi c at the moment. He is going to be seen in [place] so we will let EP know about [...] anterior wall HI Coronary artery disease involving [place] coronary artery of [place] heart without angina pectoris Ischemic cardiomyopathy DROSSER-D (AICD) Medtronic 10/16/17 [facility] Stecker Implantable defibrillator reprogramming/check H/O atrial flutter [...] 3 0 tablet 5 Cholecalciferol (VITAMIN D-3) 31352 units CAPS Take by mouth Once a [...] 42 mcg (0.06 %) nasal spra y [place] 2 sprays 3 times a day by [...] Interval:176 ms P Duration:196 ms P Horizontal [place]:-6 deg P Front [place]:72 deg Q Onset:508 ms QRSD Interval:148 ms QT Interval:500 ms QTcB:508 ms QTcF:505 ms QRS Horizontal [place]:217 deg QRS [place]:167 deg I-40 Horizontal [place]:188 deg I-40 Front [place]:148 deg T-40 Horizontal [place]:231 deg T-40 Front [place]:163 deg T Horizontal [place]: deg T Wave [place]:15 deg S-T Horizontal [place]:67 deg S-T Front [place]:-59 deg Severity:- ABNORMAL ECG - INTERP:ATRIAL-SENSED VENTRICULAR-PACED [...] 366 (H) 06/10/2018 I reviewed records from [facility] advanced heart failure clinic for office visit [...] shock requiring IABP, pressor (dop amine, norepinephrine). [facility] and [facility] were on divert. Patient wasn' t transferred to [facility]. B. Echocardiogram 03/17/2017 shows LV ejection fraction is severely de creased, visually estimated left ventricular ejection fraction is 20 - 25%, left ventricular systolic thickening is segment ally abnormal,mildly reduced RV systolic function. Normal RV size, no significant valvular abnormalities seen, compared to the most recent exam dated, 03/15/2017, there is no significant changes C. At [facility], patient had another STEMI code 03/29, with [...] to follow up closely with a local pediatric neurologist in [place] . He wias dischargeed with a LifeVest [...] y we will transfer the patient to [facility] for consideration of urgent coronary revascularizatio n. [...] He is in class III of the [place] [employer] functional class. Heart failure stage [...] in the se regions. C. S/P Medtronic DROSSER-D 10-16-17 Dr Darby, [facility]. Ice interrogation today shows one episode of [...] will be needing to go back to [place] in the summer. F. 07/22/2018 patient has [...] retention since the heart failure team in [facility] told him to continue taking his furosemide on a daily basis. He is in class II of th e [place] Heart [employer] functional class heart failure stage [...] He is going to be seen in [place] so we will let EP know about [...] anticoagulation he was left that way from [facility]. Patient has had several GI bleeds and [...] since the heart fail ure team in [place] told him to continue taking his furosemide [...] this chart may have been created with [employer] voice recognition software. Occasi onal wrong-word or [...] [place] | | | | | | [address] | | | | | | | | +--------+ + + + + | 04/16/ | Office | Cardiology | Alin Anderson | | | 2019 | Visit | | MD Cheryl Arreguin | | | | | | [address] | | | | | | [place] [address] | | | | | | [phone] | | | | | | | [...] [place] | | | | | | [address] | | | | | | | [...] + + | Coronary artery disease involving [place] coronary artery of [place] heart without | | angina pectoris | + + | Ischemic cardiomyopathy Other specified forms of chronic ischemic heart disease | + + | Abdominal aortic aneurysm (AAA) without rupture (HCC) | + + | 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
--- OUTSIDE RECORDS SUMMARY | ~2020-03-04 | XMS | Encounter Summary ---
Demographics + + + | Address | [address] | | | [place] [address] | + + + | Home Phone [...] [place], [place] | | | | | [address] | | + + + + + Care Team Providers + +------+ + | Care Packaging Sales Consultant Name | Role | Phone | + +------+ + PCP | Unavailable | + +------+ + Encounter Details +--------+ + + + + | Date | Type | Department | Care Team | Description | +--------+ + + + + | 08/26/ | Hospital | [facility] | Randy Figueroa, | Fatigue, unspecified | | 2018 | Encounter | MED CTR NUCLEAR | [address] | type; Implantable | | | | MEDICINE [address] [place], | defibrillator | | | | [place], | [place] [address] | reprogramming/check | | | | [place] [address] | [phone] | | | | | [phone] | | | +--------+ + + + [...] 0 | | | | (VITAMIN D-3) [address] | mouth Once a week. | | [...] | | nasal spray | nasal spray [place] 2 | | | | | | [...] 62 y.o. 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 Signed by: Randy Figueroa MD [facility] 09/02/2018, 13:17 d ocumented in this [...] | | | | | | [place] [address] | | | | | | [phone] | | | | | | | [...] [place] | | | | | | [address] | | | | | | | [...] y.o. MEDICAL | | | RECORD NUMBER: [id number] PRIMARY CARE: Young Haque DO | | | READING BRANDING MACHINE TENDER: Randy Figueroa MD 48-HOUR HOLTER | | [...] by: Randy | | | MD [place] [facility] 09/02/2018, 13:17 | | + + + + +---------+ + + | Performing | Address | City/State[facility] | Phone Number | [...]
--- OUTSIDE RECORDS SUMMARY | ~2020-03-04 | XMS | Encounter Summary ---
Demographics + + + | Address | [address] | | | [place] [address] | + + + | Home Phone [...] | | | | | [place] [address] | | + + + + + Care Team Providers + +------+ + | Care Catalyst Concentration Operator Name | Role | Phone | [...] Pharmacy | | | | | | [address] | | | | | | Loop [place], [place] | | | | | | [address] | | | | | | [phone] | | | +--------+ + + + [...]
--- OUTSIDE RECORDS SUMMARY | ~2020-03-04 | XMS | Encounter Summary ---
Demographics + + + | Address | [address] | | | [place] [address] | + + + | Home Phone [...] [place] | | | | | [address] | | + + + + + Care Team Providers + +------+ + | Care Automatic Clipper And Stripper Name | Role | Phone | + +------+ + | Amy Olivares MD | PCP | | + +------+ + Encounter Details +--------+ + + + + | Date | Type | Department | Care Team | Description | +--------+ + + + + | 04/13/ | Orders Only | [facility] | Provider, | | | 2019 | | SYSTEM GENERIC OP | MD [address] | | | | | [address] | [place] | | | | | [address] [place], [place] | [place] [address] | | | | | [address] | | | | | | [phone] | | | +--------+ + + + [...] [place] | | | | | | [address] | | | | | | | | +--------+ + + + + | 04/16/ | Office | Cardiology | Alin Anderson | | | 2019 | Visit | | MD Cheryl Arreguin | | | | | | [address] | | | | | | [place] [address] | | | | | | [phone] | | | | | | | [...] [place] | | | | | | [address] | | | | | | | | +--------+ + + + + documented as of this encounter Visit Diagnoses Not on filedocumented in this encounter"
--- OUTSIDE RECORDS SUMMARY | ~2020-03-04 | XMS | Encounter Summary ---
Demographics + + + | Address | [address] | | | [place] [address] | + + + | Home Phone [...] [place] | | | | | [address] | | + + + + + Care Team Providers + +------+ + | Care Assessment Expert Name | Role | Phone | [...] [address] | | | | | [place], [place] | [address] [place], [place] | | | | | [address] | [address] | | | | | [phone] | | | +--------+ + + + [...] | | | | | [facility] | | | | | | [address] | | | | | | [address] | | | | | | | | +--------+ + + + + | 04/16/ | Office | Cardiology | Alin Anderson | | | 2019 | Visit | | MD Cheryl Arreguin | | | | | | [address] | | | | | | [place] [address] | | | | | | [phone] | | | | | | | [...] [place] | | | | | | [address] | | | | | | | | +--------+ + + + + documented as of this encounter Procedures + +--------+ + + + | Procedure Name | Priori | Date/Time | Associated Diagnosis | Comments | | | ty | | | | + +--------+ + + + | EXTERNAL LAB: DONTE | Routin | 03/07/2019 | | Results for this | | | e | | | procedure are in the | | | | | | results section. | + +--------+ + + + | EXTERNAL LAB: | Routin | 03/07/2019 | | Results for this | | GLUCOSE | e | | | procedure are in the | | | | | | results section. | + +--------+ + + + | EXTERNAL LAB: | Routin | 03/07/2019 | | Results for this | | CALCIUM | e | | | procedure are in the | | | | | | results section. | + +--------+ + + + | EXTERNAL LAB: CARBON | Routin | 03/07/2019 | | Results for this | | DIOXIDE | e | | | procedure are in the | | | | | | results section. | + +--------+ + + + | EXTERNAL LAB: | Routin | 03/07/2019 | | Results for this | | CHLORIDE | e | | | procedure are in the | | | | | | results section. | + +--------+ + + + | EXTERNAL LAB: | Routin | 03/07/2019 | | Results for this | | POTASSIUM | e | | | procedure are in the | | | | | | results section. | + +--------+ + + + | EXTERNAL LAB: SODIUM | Routin | 03/07/2019 | | Results for this | | | e | | | procedure are in the | | | | | | results section. | + +--------+ + + + | EXTERNAL LAB: Kari MARSHALL | Routin | 03/07/2019 | | Results for this | | NATURETIC PEPTIDE | e | | | procedure are in the | | | | | | results section. | + +--------+ + + + | EXTERNAL LAB: WILFRED | Routin | 03/07/2019 | | Results for this | | | e | | | procedure are in the | | | | | | results section. | + +--------+ + + + | EXTERNAL LAB: | Routin | 03/07/2019 | | Results for this | | CREATININE | e | | | procedure are in the | | | | | | results section. | + +--------+ + + + documented in this encounter Results External Lab: BUN (03/07/2019) + +-------+ + + + | Component | Value | Ref Range | Performed | Pathologist | | | | | At | Signature | + +-------+ + + + | BUN, | 49 | | | | | External | | | | | + +-------+ + + + External Lab: Glucose (03/07/2019) + +-------+ + + + | Component | Value | Ref Range | Performed | Pathologist | | | | | At | Signature | + +-------+ + + + | Glucose, | 137 | | | | | External | | | | | + +-------+ + + + External Lab: Calcium (03/07/2019) + +-------+ + + + | Component | Value | Ref Range | Performed | Pathologist | | | | | At | Signature | + +-------+ + + + | Calcium, | 8.9 | | | | | External | | | | | + +-------+ + + + External Lab: Carbon Dioxide (03/07/2019) + +-------+ + + + | Component | Value | Ref Range | Performed | Pathologist | | | | | At | Signature | + +-------+ + + + | Carbon | 39 | | | | | Dioxide, | | | | | | External | | | | | + +-------+ + + + External Lab: Chloride (03/07/2019) + +-------+ + + + | Component | Value | Ref Range | Performed | Pathologist | | | | | At | Signature | + +-------+ + + + | Chloride, | 86 | | | | | External | | | | | + +-------+ + + + External Lab: Potassium (03/07/2019) + +-------+ + + + | Component | Value | Ref Range | Performed | Pathologist | | | | | At | Signature | + +-------+ + + + | Potassium, | 3.7 | | | | | External | | | | | + +-------+ + + + External Lab: Sodium (03/07/2019) + +-------+ + + + | Component | Value | Ref Range | Performed | Pathologist | | | | | At | Signature | + +-------+ + + + | Sodium, | 137 | | | | | External | | | | | + +-------+ + + + External Lab: B Type Naturetic Peptide (03/07/2019) + +-------+ + + + | Component | Value | Ref Range | Performed | Pathologist | | | | | At | Signature | + +-------+ + + + | B-Type | 881 | | | | | Naturetic | | | | | | Peptide, | | | | | | External | | | | | + +-------+ + + + + + | Specimen | + + | Blood | + + External Lab: eGFR (03/07/2019) + +-------+ + + + | Component | Value | Ref Range | Performed | Pathologist | | | | | At | Signature | + +-------+ + + + | eGFR, | 29 | | | | | External | | | | | + +-------+ + + + + + | Specimen | + + | Blood | + + External Lab: Creatinine (03/07/2019) + +-------+ + + + | Component | Value | Ref Range | Performed | Pathologist | | | | | At | Signature | + +-------+ + + + | Creatinine, | 2.3 | | | | | External | | | | | + +-------+ + + + + + | Specimen | + + | Blood | + + documented in this encounter Visit Diagnoses Not on filedocumented in this encounter"
--- OUTSIDE RECORDS SUMMARY | ~2020-03-04 | XMS | Encounter Summary ---
Demographics + + + | Address | [address] | | | [place] [address] | + + + | Home Phone [...] [place], [place] | | | | | [address] | | + + + + + Care Team Providers + +------+ + | Care Sole Blacker Name | Role | Phone | + [...] W | breathing) | | | | [place], | [place], | | | | | [place] [address] | [place] [address] | | | | | [phone] | [phone] | | | | | | | [...] | | | | [address] [place] | | | | | | [address] | | | | | | | | +--------+ + + + + | 04/16/ | Office | Cardiology | Alin Anderson | | | 2019 | Visit | | MD [address] | | | | | | [address] | | | | | | [place] [address] | | | | | | [phone] | | | | | | | [...] [place] | | | | | | [address] | | | | | | | | +--------+ + + + + documented as of this encounter Visit Diagnoses Not on filedocumented in this encounter"
--- OUTSIDE RECORDS SUMMARY | ~2020-03-04 | XMS | Encounter Summary ---
Demographics + + + | Address | [address] | | | [place] [address] | + + + | Home Phone [...] [place] | | | | | [address] | | + + + + + Care Team Providers + +------+ + | Care Energy Administrator Name | Role | Phone | [...] | | involving | [address] | [place] | | | | | yuhaaviatam | [address] | [place], [place] | | | | | coronary | [address] | [address] | | | | | artery of | Phone: | Phone: | | | | | yuhaaviatam heart | [phone] | [phone] | | | | | without | Fax: | Fax: | | | | | angina | [phone] | [phone] | | | | | pectoris | | | +--------+ + + + + + Encounter Details +--------+---------+ + + + | Date | Type | Department | Care Team | Description | +--------+---------+ + + + | 08/10/ | Office | [facility] | Randy Figueroa, | Coronary artery | | 2018 | Visit | MED CTR CARDIAC | [address] | disease, angina | | | | REHABILITATION [address] | [address] [place], | presence | | | | [address] [place] | [place] [address] | unspecified, | | | | [place] [address] | [phone] | unspecified vessel | | | | [phone] | | or lesion type, | | | | | | unspecified whether | | | | | | yuhaaviatam or | | | | | | transplanted heart | | | | | | (Primary Dx); Post | | | | | | PTCA; PAD | | | | | | (peripheral artery | | | | | | disease) ([facility]) | +--------+---------+ + + + Social History [...] Gael Woo - 08/10/2018 10:00 AM PST [facility] CARDIAC REHABILITATION [address] [place] [address] Cardiac Rehab Date: 08/10/2018 Patient Information Patient Name: Bob Will Date of : 1955 Age: 62 y.o. Encounter Diagnoses Code Name Primary? I25.10 Coronary artery disease, angina presence unspecified, unspecified vessel or lesi on type, unspecified whether yuhaaviatam or transplanted heart Yes Z98.61 Post PTCA I73.9 PAD (peripheral artery disease) ([facility]) Number of Visits Approved: 34 Taken Medications [...] [place] | | | | | | [address] | | | | | | | | +--------+ + + + + | 04/16/ | Office | Cardiology | Alin Anderson | | | 2019 | Visit | | MD Cheryl Arreguin | | | | | | [address] | | | | | | [place] [address] | | | | | | [phone] | | | | | | | [...] [place] | | | | | | [address] | | | | | | | [...]
--- OUTSIDE RECORDS SUMMARY | ~2020-03-04 | XMS | Encounter Summary ---
Demographics + + + | Address | [address] | | | [place] [address] | + + + | Home Phone [...] [place], [place] | | | | | [address] | | + + + + + Care Team Providers + +------+ + | Care Turret Lathe Operator Name | Role | Phone | [...] | | involving | [address] | [place] | | | | | quechan | [address] | [place] | | | | | coronary | [address] | [address] | | | | | artery of | Phone: | Phone: | | | | | quechan heart | [phone] | [phone] | | | | | without | Fax: | Fax: | | | | | angina | [phone] | [phone] | | | | | pectoris | | | +--------+ + + + + + Encounter Details +--------+---------+ + + + | Date | Type | Department | Care Team | Description | +--------+---------+ + + + | 11/25/ | Office | [facility] | Randy Figueroa, | Coronary artery | | 2019 | Visit | MED CTR CARDIAC | MD [address] | disease involving | | | | REHABILITATION [address] [place], | quechan coronary | | | | [address] [place] | [place] [address] | artery of quechan | | | | [place] [address] | [phone] | heart without angina | | | | [phone] | | pectoris (Primary | | | [...] as of this encounter Progress Cheri Mchugh, INVESTIGATOR INTERNAL AFFAIRS - 11/25/2018 10:00 AM PDT [facility]ATION [address] [place] [address] Cardiac Rehab Date: 11/25/2018 Patient Information Patient [...] | | | | | [address] [facility] | | | | | | [address] [place] | | | | | | [address] | | | | | | | | +--------+ + + + + | 04/16/ | Office | Cardiology | Alin Anderson | | | 2019 | Visit | | MD Cheryl Arreguin | | | | | | [address] | | | | | | [place] [address] | | | | | | [phone] | | | | | | | [...] [place] | | | | | | [address] | | | | | | | | +--------+ + + + + documented as of this encounter Visit Diagnoses + + | Diagnosis | + + | Coronary artery disease involving quechan coronary artery of quechan heart without | | angina pectoris - Primary | + + | Post PTCA Postsurgical percutaneous transluminal coronary angioplasty status | + + documented in this encounter"
--- OUTSIDE RECORDS SUMMARY | ~2020-03-04 | XMS | Encounter Summary ---
Demographics + + + | Address | [address] | | | [place] [address] | + + + | Home Phone [...] [place], [place] | | | | | [address] | | + + + + + Care Team Providers + +------+ + | Care Door Fitter Name | Role | Phone | + +------+ + PCP | Unavailable | + +------+ + Reason for Visit +--------+--------+ + | Reason | Onset | Comments | | | Date | | +--------+--------+ + | Other | 05/04/ | plan of care | | | 2016 | | +--------+--------+ + Encounter Details +--------+ + + + + | Date | Type | Department | Care Team | Description | +--------+ + + + + | 05/04/ | Telephone | [facility] | Carolina Lindarisa, | Other (plan of care) | | 2017 | | CARDIOLOGY [address] | [address] [place] | | | | | [place], | [place], | | | | | [place] [address] | [place] [address] | | | | | [phone] | [phone] | | | | | | | [...] Telephone Encounter - Lilian Machado RN - 05/04/2017 4:28 PM PDTPer conversation with Katie Kay, patient should stop Metoprolol and start on Carvedilol 3.125mg twice daily instead. Patient notified ...........................................Lilian Machado RN on 7 at 16:32 documented in this encounter Plan of Treatment +--------+ + + + + | Date | Type | Specialty | Care Team | Description | +--------+ + + + + | 03/12/ | Office | Nephrology | Litzy, | | | 2019 | Visit | | [address] | | | | | | [address] | | | | | | [address] [place] | | | | | | [id number] | | | | | | | | +--------+ + + + + | 04/16/ | Office | Cardiology | Alin Anderson | | | 2019 | Visit | | MD [address] | | | | | | [address] | | | | | | [place] [address] | | | | | | [phone] | | | | | | | [...] [place] | | | | | | [address] | | | | | | | | +--------+ + + + + documented as of this encounter Visit Diagnoses Not on filedocumented in this encounter"
--- OUTSIDE RECORDS SUMMARY | ~2020-03-04 | XMS | Encounter Summary ---
Demographics + + + | Address | [address] | | | [place] [address] | + + + | Home Phone [...] [place] | | | | | [address] | | + + + + + Care Team Providers + +------+ + | Care Finished Goods Planner Name | Role | Phone | [...] | (obstructive | [address] | [place] | | | | | sleep | [place] | [place], | | | | | apnea) | [place] | [place] [address] | | | | | Procedures | [address] | Phone: | | | | | MO POLYSOM | Phone: | [phone] | | | | | 6/>YRS SLEEP | [phone] | Fax: | | | | | W/CPAP 4/> | Fax: | [phone] | | | | | ADDL K[place] | [phone] | | | | | | ATTND [...] + + | 04/14/ | Office | [facility] | Sofie Sneed MD | [place] (obstructive | | 2018 | Visit | SLEEP DISORDER [address] | [address] | sleep apnea) | | | | [address] [place] | [place] | (Primary Dx) | | | | [place] [address] | [address] | | | | | [phone] | | | +--------+---------+ + + + [...] anterior wall [place], post PTCA and stents on 03/15/17, cardiac [...] 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 REVELANT MEDICATIONS: Tramadol, hydrocodonehypopnea acetaminophen, gabapentin. SUBJECTIVE: The patient rated sleep quality during sleep study as better. [employer] note: patient tried medium dreamwear nasal mask [...] | | | | | | [facility] | | | | | | [address] | | | | | | [address] | | | | | | | | +--------+ + + + + | 04/16/ | Office | Cardiology | Alin Anderson | | | 2019 | Visit | | MD Cheryl Arreguin | | | | | | [address] | | | | | | [place] [address] | | | | | | [phone] | | | | | | | [...] [place] | | | | | | [address] | | | | | | | | +--------+ + + + + + + +--------+ + + | Name | Type | Priori | Associated Diagnoses | Order Schedule | | | | ty | | | + + +--------+ + + | * [facility] Sleep [facility] - | Outpatient | [...]
--- OUTSIDE RECORDS SUMMARY | ~2020-03-04 | XMS | Encounter Summary ---
Demographics + + + | Address | [address] | | | [place] [address] | + + + | Home Phone [...] [place], [place] | | | | | [address] | | + + + + + Care Team Providers + +------+ + | Care Concierge Name | Role | Phone | + [...] W | issue) | | | | [place], | [place], | | | | | [place] [address] | [place] [address] | | | | | [phone] | [phone] | | | | | | | [...] read back instructions accurately. Prescriptions called to [facility]. Lab order faxed to [facility] in [place]. Copy of this note faxed to Dr Matson/Marilin at [phone] for their information ....... ....................................Lilian Machado RN on 10/27/18 at 16:01 elephone Encounter - Lilian Machado RN - 10/27/2018 3:03 PM PSTPer conversation with Hansa, we need to hav e documentation prior to sending any scripts. I called the [facility], spoke with Jermaine. Logan he states [...] spoke with [place]. She states that the [facility] had him stop his entresto and spironolactone due to his kidney function and had him increase his furosemide to 20mg tw ice daily. He is almost out of his furosemide at this time and they have not been able to g et a hold of anyone at the [facility] for a refill. They are wondering [...] | | | | [address] [place] | | | | | | [address] | | | | | | | | +--------+ + + + + | 04/16/ | Office | Cardiology | Alin Anderson | | 2019 | Visit | | MD [address] | | | | | | [address] | | | | | | [place] [address] | | | | | | [phone] | | | | | | | [...] [place] | | | | | | [address] | | | | | | | [...]
--- OUTSIDE RECORDS SUMMARY | ~2020-03-04 | XMS | Encounter Summary ---
Demographics + + + | Address | [address] | | | [place] [address] | + + + | Home Phone [...] [place], [place] | | | | | [address] | | + + + + + Care Team Providers + +------+ + | Care Ship Joiner Name | Role | Phone | + [...] | | involving | [address] | [place] | | | | | coushatta | [address] | [place] | | | | | coronary | [address] | [address] | | | | | artery of | Phone: | Phone: | | | | | coushatta heart | [phone] | [phone] | | | | | without | Fax: | Fax: | | | | | angina | [phone] | [phone] | | | | | pectoris | | | +--------+ + + + + + Encounter Details +--------+---------+ + + + | Date | Type | Department | Care Team | Description | +--------+---------+ + + + | 10/07/ | Office | [facility] | Carolina Lindarisa, | Coronary artery | | 2019 | Visit | MED CTR CARDIAC | MD [address] | disease, angina | | | | REHABILITATION [address] | [address] [place], | presence | | | | [address] [place] [place] | [place] [address] | unspecified, | | | | [place] [address] | [phone] | unspecified vessel | | | | [phone] | | or lesion type, | | | | | | unspecified whether | | | | | | coushatta or | | | | | | [...] Gael Ortega - 10/07/2018 10:00 AM PST [facility] C[facility]AC RE[facility]ATION [address] [place] [address] Cardiac Rehab 60 Day Review Date: 10/07/2018 Patient Information Patient Name: Bob Will Date of : 1955 Age: 62 y.o. Referring Provider: Randy Figueroa MD Encounter Diagnoses Code Name Primary? I25.10 Coronary artery disease, angina presence unspecified, unspecified vessel or lesi on type, unspecified whether coushatta or transplanted heart Yes Z98.61 Post PTCA Cardiac Rehab Phase II Leon atment Plan Bob Will (Bob) is a 62 y.o. 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 He has recently increased [...] control. Also began walking with his around MOGL 3 days a week along with chasing [...] Healthy Dietary Education Date: 08/03/18 -Referral to Appliquer: Date: -DVD: Healthy Eating For Life Date: [...] exercise until stable. Date: Range: -Referral to Postal Superintendent Date: Education Points listed below- Date Completed: [...] [place] | | | | | | [address] | | | | | | | | +--------+ + + + + | 04/16/ | Office | Cardiology | Alin Anderson | | | 2019 | Visit | | MD Cheryl Arreg[address] | | | | | | [address] | | | | | | [place] [address] | | | | | | [phone] | | | | | | | [...] [place] | | | | | | [address] | | | | | | | | +--------+ + + + + documented as of this encounter Visit Diagnoses + + | Diagnosis | + + | Coronary artery disease, angina presence unspecified, unspecified vessel or lesion | | type, unspecified whether coushatta or transplanted heart - Primary | + + | Post PTCA Postsurgical percutaneous transluminal coronary angioplasty status | + + documented in this encounter
--- OUTSIDE RECORDS SUMMARY | ~2020-03-04 | XMS | Encounter Summary ---
Demographics + + + | Address | [address] | | | [place] [address] | + + + | Home Phone | | + + + | Preferred Language | Unknown | + + + | Marital Status | | + + + | Congregation Affiliation | NRP | + + + | Race | White | + + + | Ethnic Group | Not or | + + + Author + + + | Author | [facility] | + + + | Organization | [facility] | + + + | Address | Unknown | + + + | Phone | Unavailable | + + + Support + + + + + | Name | Relationship | Address | Phone | + + + + + | [place] Will | ECON | [address] | | | | | [place] [address] | | + + + + + Care Team Providers + +------+ + | Care Ice Bag Assembler Name | Role | Phone | [...] + | 10/16/ | Anesthesia | Cardiac Programming Intern | Sandie Garcia MD | | | 2018 | Event | at [facility] [address] | [address] | | | | | [address] | Tabitha Garcia [place], | | | | | [facility], | [place] [address] | | | | | Floor [place], [place] | [phone] | | | | | [address] | | | | | | [phone] | Terry Garvin, | | | | | | FUR REPAIRER [address] | | | | | | [address] | | | | | | [place], [place] | | | | | | [address] | | | | | | [phone] | | | | | | | [...] | | | | (groin access for tin can laborer) | RN | | +--------+ + [...]
--- OUTSIDE RECORDS SUMMARY | ~2020-03-04 | XMS | Encounter Summary ---
Demographics + + + | Address | [address] | | | [place] [address] | + + + | Home Phone [...] [place] | | | | | [address] | | + + + + + Care Team Providers + +------+ + | Care Land Clearer Name | Role | Phone | + [...] | | involving | [address] | [place] | | | | | cherokee | [place], [place] | [place], [place] | | | | | coronary | [address] | [address] | | | | | artery of | Phone: | Phone: | | | | | cherokee heart | [phone] | [phone] | | | | | without | Fax: | Fax: | | | | | angina | [phone] | [phone] | | | | | pectoris | | | +--------+ + + + + + Encounter Details +--------+---------+ + + + | Date | Type | Department | Care Team | Description | +--------+---------+ + + + | 11/18/ | Office | [facility] | Randy Figueroa, | Coronary artery | | 2019 | Visit | [facility] | MD [address] | disease involving | | | | REHABILITATION [address] | [place], | cherokee coronary | | | | [address] [place] | [place] [address] | artery of cherokee | | | | [place] [address] | [phone] | heart without angina | | | | [phone] | | pectoris (Primary | | | [...] of this encounter Progress Gael Ortega - 11/18/2018 10:00 AM PDT [facility] [address] [facility] [address] Cardiac Rehab Date: 11/18/2018 Patient Information Patient Name: Bob Will Date of : 1955 Age: 63 y.o. Encounter Diagnoses Code Name Primary? I25.10 Coronary artery disease involving cherokee coronary artery of cherokee heart without angina pectoris Yes Z98.61 Post [...] signed by Gael Woo at 11/18/2018 12:26 PM PDTdocumented in this encounter Plan of Treatment +--------+ + + + + | Date | Type | Specialty | Care Team | Description | +--------+ + + + + | 03/12/ | Office | Nephrology | Litzy, | | | 2019 | Visit | | [address] | | | | | | [address] [facility] | | | | | [...] | | | | | [place] [address] | | | | | | [phone] | | | | | | | [...] [place] | | | | | | [address] | | | | | | | | +--------+ + + + + documented as of this encounter Visit Diagnoses + + | Diagnosis | + + | Coronary artery disease involving cherokee coronary artery of cherokee heart without | | angina pectoris - Primary | + + | Post PTCA Postsurgical percutaneous transluminal coronary angioplasty status | + + documented in this encounter"
--- OUTSIDE RECORDS SUMMARY | ~2020-03-04 | XMS | Encounter Summary ---
Demographics + + + | Address | [address] | | | [place] [address] | + + + | Home Phone [...] [place] | | | | | [address] | | + + + + + Care Team Providers + +------+ + | Care Ambulance Driver Name | Role | Phone | [...] | | involving | [address] | [place] | | | | | [place] | [place], [place] | [place], [place] | | | | | coronary | [address] | [address] | | | | | artery of | Phone: | Phone: | | | | | [place] heart | [phone] | [phone] | | | | | without | Fax: | Fax: | | | | | angina | [phone] | [phone] | | | | | pectoris | | | +--------+ + + + + + Encounter Details +--------+---------+ + + + | Date | Type | Department | Care Team | Description | +--------+---------+ + + + | 10/21/ | Office | [facility] | Randy Figueroa, | Coronary artery | | 2019 | Visit | [facility] | MD [address] | disease, angina | | | | REHABILITATION [address] | [place], | presence | | | | [address] [place] | [place] [address] | unspecified, | | | | [place] [address] | [phone] | unspecified vessel | | | | [phone] | | or lesion type, | | | | | | unspecified whether | | | | | | [place] or | | | | | | [...] of this encounter Progress Notes Ana Thomas, FOREIGN CAR MECHANIC - 10/21/2018 10:00 AM PST [facility] [address] [facility] [address] Cardiac Rehab Date: 10/21/2018 Patient Information Patient Name: Bob Will Date of : 1955 Age: 62 y.o. Encounter Diagnoses Code Name Primary? I25.10 Coronary artery disease, angina presence unspecified, unspecified vessel or lesi on type, unspecified whether [place] or transplanted heart Yes Number of Visits [...] which is much higher than Ashok's norm. credit director was placed. No significant change noted from [...] had came directly to rehab from the [place] [facility] where changes in medication was made. Ashok states they stopped his Entresto and increased Lasix to two tabs daily. also notified to [facility]. Any abnormal vital signs or [...] | | | | [address] | | | | | | [address] | | | | | | | | +--------+ + + + + | 04/16/ | Office | Cardiology | Alin Anderson | | | 2019 | Visit | | MD Cheryl Arreguin | | | | | | [address] | | | | | | [place] [address] | | | | | | [phone] | | | | | | | [...] [place] | | | | | | [address] | | | | | | | | +--------+ + + + + documented as of this encounter Visit Diagnoses + + | Diagnosis | + + | Coronary artery disease, angina presence unspecified, unspecified vessel or lesion | | type, unspecified whether [place] or transplanted heart - Primary | + + documented in this encounter"
--- OUTSIDE RECORDS SUMMARY | ~2020-03-04 | XMS | Encounter Summary ---
Demographics + + + | Address | [address] | | | [place] [address] | + + + | Home Phone [...] [place], [place] | | | | | [address] | | + + + + + Care Team Providers + +------+ + | Care Greeting Card Maker Name | Role | Phone | [...] + + | 10/03/ | [facility] | [facility] | Herman Masterson MD | NSTEMI (non-ST | | 2018 - | Encounter | [facility] | [address] | elevated myocardial | | | | [address] | MARKO HOWELL | infarction) (HCC); | | 10/10/ | | [place] [address] | [id number] | Ischemic | | 2018 | | [phone] | | cardiomyopathy; | | | | | Destinee Trejo MD | Community acquired | | | | | [address] | pneumonia, | | | | | [address] [place] | unspecified | | | | | [address] | laterality; Acute | | | | | | upper GI bleed; | | | | | Ganga Lind, | Coronary artery | | | | | [address] | disease involving | | | | | [place] | wales coronary | | | | | [id number] | artery of wales | | | [...] of known severe ischemic CAD/recent ant wall MA in 03/2017 c/b card iogenic shock s/p ECMO in [facility] 4. Paroxysmal atrial flutter Patient Active Problem List Diagnosis Acute anterior wall MA CAD (coronary artery disease) Ischemic cardiomyopathy Pulmonary [...] history of CAD with recent anterior wall MA, post PTCA and st ents of the left main, LAD and LCx on 03/15/17 + left atrial appendage thrombus c/b cardiac sh ock/respiratory failure requiring Tx to [facility]; was on ECMO, who was a transfer this time from [facility] on 10/03 for acute respiratory failure [...] [place] but patient refused to go to [place] for re-vascu larization. He preferred to go to [facility]. Dr. Gomez discussed with Dr. Bedoya at [facility] and he was accepted by [...] of known severe ischemic CAD/recent ant wall MA in 03/2017 c/b card iogenic shock s/p ECMO in [facility] - troponin peaked to 26 - [facility] on 10/03- severe in-stent stenosis of [...] Center - [place] and was accepted at [facility] for re-vascularization but patient refused and wanted to be transferred to [facility]. Dr. Gomez discussed with cardiology at [facility] and was accepted by them. [...] results on DC: None Disposition: Transfer to [facility] cardiology service Dr. Bedoya accepting physician Discharge Procedure Orders Transfer patient to other facility Order Comments: [facility] when bed is available. Code Status/Advance Directive (Pertinent discussions/declarations): Full Code Time spent on Discharge and Coordination of post-hospital care: >30 minutes Electronically signed by: Destinee Trejo, 10/10/2017 15:01 [facility] documented in this en counter Medications [...] RN to bedside, patient to go to [facility], wants to get better and do the procedure. RN to inform MD Electronically signed by: Josselin Ventura RN 10/10/2017 14:00 Electronically signed by Rhea Ventura RN at 2:00 PM Rhea Caal RN - 10/10/2017 1:[address] PSTDr[address] Jason at [facility] to explain to the [facility] about leaving [...] No pleural effusion or pneumothorax. Heart/mediastinum: Cardiac calros houette is of normal size. No mediastinal [...] on amiodarone PLAN OR RECOMMENDATIONS: Transfer to [facility] audiology service Dr. Segura accepting physician I appreciate the opportunity of participating in the care of this patient. Delmer Gomez MD, 10/09/2017 15:00 Destinee Espinoza MD - 10/09/2017 8:16 AM PST [facility] Hospitalist Progress Note Ron Hood is a 61 y.o. male INTERVAL HPI: He is a 61 y.o. male with a history of CAD with recent anterior wall MA, post PTCA and sten ts of the left main, LAD and LCx on 03/15/17 + left atrial appendage thrombus c/b cardiac shoc k/respiratory failure requiring Tx to [facility]; was on ECMO, who was a transfer this time from [facility] on 10/03 for acute respiratory failure [...] of known severe ischemic CAD/recent ant wall MA in 03/2017 c/b card iogenic shock s/p ECMO in [facility] - troponin peaked to 26 - [facility] on 10/03- severe in-stent stenosis of [...] as outlined above. Destinee Trejo 10/09/2017 8:16 [facility] Destinee Espinoza MD - 10/08/2017 12:20 PM PST [facility] Hospitalist Progress Note Ron Hood is a 61 y.o. male INTERVAL HPI: He is a 61 y.o. male with a history of CAD with recent anterior wall MA, post PTCA and sten ts of the left main, LAD and LCx on 03/15/17 + left atrial appendage thrombus c/b cardiac shoc k/respiratory failure requiring Tx to [facility]; was on ECMO, who was a transfer this time from [facility] on 10/03 for acute respiratory failure [...] % on high-flow nasal ca nnula, heated, seed tester system at flow rate 14L/min Temp [...] of known severe ischemic CAD/recent ant wall MA in 03/2017 c/b card iogenic shock s/p ECMO in [facility] - troponin peaked to 26 [...] as outlined above. Destinee Trejo 10/08/2017 12:20 [facility] Destinee Espinoza MD - 10/07/2017 2:38 PM PST [facility] Hospitalist Progress Note Ron Hood is a 61 y.o. male INTERVAL HPI: He is a 61 y.o. male with a history of CAD with recent anterior wall MA, post PTCA and sten ts of the left main, LAD and LCx on 03/15/17 + left atrial appendage thrombus c/b cardiac shoc k/respiratory failure requiring Tx to [facility]; was on ECMO, who was a transfer this time from [facility] on 10/03 for acute respiratory failure [...] of known severe ischemic CAD/recent ant wall MA in 03/2017 c/b card iogenic shock s/p ECMO in [facility] - troponin peaked to 26 [...] as outlined above. Destinee Trejo 10/07/2017 14:38 [facility] Delmer Mcmanus MD - 10/07/2017 [...] mg 81 mg Per OG Tube Daily Gnaga Lind MD 81 mg at 0 10/09/17 [...] RECOMMENDATIONS: Continue current medical management We'll contact [facility] regarding transfer and revascularization plann ing [...] orally BID Carlos Graham PharmD 10/07/2017 9:59 [facility] IV TO PO Collaborative Practice [...] troponin Will consult with cardiology team at [facility] regarding planning for coronary revascularization prior to discharge home I appreciate the opportunity of participating in the care of this patient. Delmer Gomez MD, 10/06/2017 17:17 Destinee Espinoza MD - 10/06/2017 12:45 PM PST [facility] Hospitalist Progress Note Ron Hood is a 61 y.o. male INTERVAL HPI: He is a 61 y.o. male with a history of CAD with recent anterior wall MA, post PTCA and sten ts of the left main, LAD and LCx on 03/15/17 + left atrial appendage thrombus c/b cardiac shoc k/respiratory failure requiring Tx to [facility]; was on ECMO, who was a transfer this time from [facility] on 10/03 for acute respiratory failure [...] 95 % on high-flow nasal can nula, seed tester system, heated at flow rate 14L/min [...] now present Confirmed by ZOHRA BREWER, FLORY ([id number]) on 10/06/2017 7:17:27 AM POC Glucose Result [...] of known severe ischemic CAD/recent ant wall MA in 03/2017 c/b card iogenic shock s/p ECMO in [facility] - troponin peaked to 26 [...] as outlined above. Destinee Trejo 10/06/2017 12:45 [facility] Clinton Hernandez MD - 10/05/2017 [...] Butt MD - 10/05/2017 9:39 AM PST [facility] Hospitalist Progress Note Ron Hood is [...] as outlined above. Clinton Burnett 10/05/2017 9:39 [facility] Portions of this chart may have been created with [employer] voice recognition software. Occasi onal wrong-word or sound-alike substitutions may have occurred due to the inherent canseco itations of voice recognition software. Please read the chart carefully and recognize, using context, where these substitutions have occurred arkerClinton MD - 0 10/04/2017 12:41 PM PST [facility] Hospitalist Progress Note Ron Hood is [...] as outlined above. Clinton Burnett 10/04/2017 12:42 [facility] Portions of this chart may have been created with [employer] voice recognition software. Occasi onal wrong-word or [...] :consider ischemia/infarction Confirmed by ZOHRA BREWER, FLORY ([id number]) on 10/04/2017 10:35:54 AM Influenza A PCR [...] 10/03/2017 5.0 5.0 - 8.0 Final Specific [place] 10/03/2017 1.006 1.001 - 1.030 Final PROTEIN [...] X Pharmacy list names: [facility] and [facility] X [employer] [...] as needed for suspected pain medication overdose Dpajbzu-khbynttfanshv-eidfpfqd 250-250-65 mg tab 1 tab by mouth [...] Prior to Admission Sig: Patient taking differently LIGHT CLEANER as: Lisinopril 5 mg tab 15 mg by mouth daily 5 mg by mouth every morning and 10 mg every eveni ng Medication review performed and electronically signed by Melody Falcon, Record Center Coordinator 20:26 Reviewed by Kelly Pitts, PharmKatie 10/03/2017 [...] might be different fr om the original. [place] HOSPITALIST HISTORY & PHYSICAL Patient: Ron Hood : 1955: Age: 61 y.o. MedRec: [id number] Admission date: 10/03/2017 Hospital day # : 0 Physician author: Ganga Lind MD Today: 10/03/2017 CHIEF COMPLAINT: Hypoxic respiratory failure HISTORY OF PRESENT ILLNESS: This is a 61 y.o. male with a history of coronary artery disease post recent anterior wall MA, [...] mild hypokinesis of the anterior wall. Hospitalized: [facility] 03/15-04/02/17 transferred 03/15in acute cardiogenic shock [...] Cor Angio; Surgeon: Monse Ross MD; Location: [facility] CV LAB ELBOW SURGERY Left GALLBLADDER [...] mouth Daily. 90 tablet Hansa Sim candelaria CUSTOM GRINDER GABAPENTIN PO Take 2 capsules by mouth 3 times daily. Historical Provider, lisinopril (PRINIVIL, ZESTRIL) 5 mg tablet Take 3 tablets by mouth Daily. 210 tablet Vondael yshiraz Alvarado CUSTOM GRINDER metFORMIN (GLUCOPHAGE) 500 mg tablet Take by [...] Status Full Medical Decision Maker [place] Hood [phone] DVT Prophylaxis Warfarin PLAN: Acute hypoxic respiratory [...] lisinopril given hypotension FEN: NPO PPX: Lovenox [facility] Documentation I expect this patient will be hospitalized for greater than 2-midnights and expect the post -hospital plan to be discharge to home or to an adult foster home. Electronically signed by: Ganga Lind MD 10/03/2017 10:02 [facility] documented in this e ncounter Procedure Notes Delmer Gomez MD - 10/03/2017 4:06 PM PSTAssociated Order(s): CV CARDIAC PROCEDUREPre-Pr ocedure Diagnose(s): NSTEMI (non-ST elevated myocardial infarction) (HCC)Post-Procedure Diag nose(s): NSTEMI (non-ST elevated myocardial infarction) (HCC)CARDIAC CATHETERIZATION REPORT DATE OF PROCEDURE: 10/03/17 PRECATHETERIZATION INFORMED CONSENT : Yes TIMEOUT Before start of procedure done: Yes GUIDE DOMESTIC TOUR: Delmer Gomez M.D., F.A.C.C. PRIMARY PHYSICIAN: Chato Matson MD PROCEDURES PERFORMED: Left heart catheterization, selective coronary arteriography INDICATIONS : 61-year-old gentleman presenting with acute hypoxic respiratory failure, new left bundle branch block, increasing troponin levels, history of coronary artery PCI and pr ior anterior myocardial infarction ARTERIAL ACCESS: Right femoral artery 6 Upper Sorbian CLOSURE DEVICE:. Sheath left in place as [...] a modified Seldinger technique and a 6 Upper Sorbian sheath was inserted. Selective coronary arteriography was performed using 6 Upper Sorbian Kymberly right 4 and left 4 catheters. [...] instability we will transfer the patient to [facility] for consideration of urgent coronary revascularization. Delmer Gomez M.D., F.A.C.C. [employer]olded [employer] [place], [place] documented in this enc ounter Consult [...] occlusion. The patient was transferred emergently to [facility] in [facility] his stents were implanted and no [...] chest pain. The patient was transferred to [facility] where ECG showed left b undle [...] Cor Angio; Surgeon: Monse Ross MD; Location: [facility] CV LAB ELBOW SURGERY Left GALLBLADDER [...] (NS) infusion Intravenous Continuous Ganga Lind MD [facility] list of outpatient meds: Prescriptions Prior [...] 10/03/2017 5.0 5.0 - 8.0 Final Specific Lincoln 10/03/2017 1.006 1.001 - 1.030 Final PROTEIN [...] Notes Plan of Care - Bob Gonzalez MINILAB OPERATOR - 10/10/2017 3:44 PM PSTProblem: Patient Care [...] Ron is now subhash ng transferred to [facility] for further treatment of his heart issues. RT goal met. Call RT for any respiratory concerns. lan of Care - Clinton Jeffries Jr. MINILAB OPERATOR - 10/10/2017 5:26 AM PSTProblem: Patient Care [...] on room air, denied shortness of breath. Hiram 2 tabs given for complain of back [...] ADLs Long-sleeved shirt. UB Dressing, Level of Will: set up required UB Dressing Assess/Train, Position: sitting UB Dressing Assess/Train, Impairments: decreased flexibility Already wearing pants, but can doff/don socks by crossing legs. LB Dressing, Level of Will: set up required, supervised LB Dressing Assess/Train, Position: sitting, standing LB Dressing Assess/Train, Impairments: strength decreased Toileting, Level of Will: supervised Toileting Assess/Train, Impairments: postural control impaired, [...] improved w/ height adjustment. Sit-Stand, Level of Will: SBA Stand-Sit, Level of Will: stand by assist Svn-Csghj-Mnc, Assistive Device: 4 wheeled walker (4WW) Toilet, Level of Will: stand by assist Toilet, Assistive Device: 4 [...] STG Status met at 10/09/2017 1700 STG Will Level stand by assist at 10/07/2017 1157 STG Position supported standing, standing at 10/07/2017 1157 STG Adaptive Equipment none at 10/07/2017 1157 Toilet Transfer Goal Flowsheet Row Most Recent Value STG Status met at 10/09/2017 1700 STG Will Level stand by assist, set up required, verbal cues required at 8 1157 STG Assistive Device 2 wheeled walker (FWW), commode (3 in 1) [BSC over toilet] at 018 1157 Electronically signed by: Tamia Alvarado OT, 10/09/2017 17:01 lan of Care - Merrill Early, LIGHT CLEANER - 10/09/2017 11:50 AM PST Problem: Patient [...] use 4 ww from home Level of Will: stand by assist Assistive Device: 4 wheeled [...] l ess O2 required Sit-Stand, Level of Will: stand by assist Stand-Sit, Level of Will: stand by assist Ylj-Sxcop-Btv, Assistive Device: 4 wheeled walker (4WW) Toilet, Level of Will: contact guard assist Toilet, Assistive Device: 4 [...] STG Status progressing at 10/08/2017 1130 STG Will Level modified independent at 10/06/2017 1340 Kda-Zznip-Snd Goal Flowsheet Row Most Recent Value STG Status progressing at 10/09/2017 1157 STG Will Level modified independent at 10/06/2017 1340 STG Assistive Device 4 wheeled walker (4WW) at 10/06/2017 1340 Gait Goal Flowsheet Row Most Recent Value STG Status progressing at 10/09/2017 1157 STG Will Level modified independent at 10/06/2017 1340 STG Assistive Device 4 wheeled walker (4WW) at 10/06/2017 1340 STG Distance (feet) 50 at 10/06/2017 1340 Stair Goal Flowsheet Row Most Recent Value STG Status new at 10/06/2017 1340 STG Will Level modified independent at 10/06/2017 1340 STG Assistive Device 2 rails at 10/06/2017 1340 STG Number of Stairs 4 at 10/06/2017 1340 Electronically signed by: Merrill Evans PTA, 10/09/2017 11:58 lan of Care - Kelly Rivera, MINILAB OPERATOR - 10/09/2017 5:57 AM PSTProblem: Patient Care [...] Patient on NC @ 5L O2, improving. Hiram given for chron ic neck pain x2. [...] continue to monitor and treat. lan of [facility] - Arleth Craig, ALFONSO - 10/08/2017 2:03 PM PSTProblem: Discharge Planning Goal: Patient will be discharged in a safe manner Outcome: Unchanged I called Mrs. Hood and let her know that I had spoken to Christine Radha this afternoon reg arding a [employer] application. I placed it in the patient's ghost chart and let her know eliza t she needed to ask her 's RN to retrieve it for her. I instructed her to turn it in to the Warehouse Trainer's Office when completed and they would answer any questions she may have as Christine Garcia will be gone tomorrow. I let her know what documents she would need to have to c omplete the application as well. I faxed a referral to [facility] through [facility] as well as she has no had time to visit the other SNFs yet. Electronically signed by: Arleth Vincent RN 10/08/2017 14:03 lan of Care - Merrill German, LIGHT CLEANER - 10/08/2017 11:00 AM PSTFormatting of this [...] pt much happier using it Level of Will: contact guard assist, verbal cues required Assistive [...] d/t high flow NC Bed-Chair, Level of Will: contact guard assist, verbal cues required, set up requir ed Chair-Bed, Level of Will: not tested Sjl-Oawbr-Kai, Assistive Device: 2 wheeled walker (FWW) Sit-Stand, Level of Will: verbal cues required, contact guard assist, set up requir ed Stand-Sit, Level of Will: contact guard assist, verbal cues required, set up requir ed Fit-Sfoyh-Gne, Assistive Device: 2 wheeled walker (FWW) Safety [...] STG Status progressing at 10/08/2017 1130 STG Will Level modified independent at 10/06/2017 1340 Yiq-Dqrlm-Qni Goal Flowsheet Row Most Recent Value STG Status progressing at 10/08/2017 1130 STG Will Level modified independent at 10/06/2017 1340 STG Assistive Device 4 wheeled walker (4WW) at 10/06/2017 1340 Gait Goal Flowsheet Row Most Recent Value STG Status progressing at 10/08/2017 1130 STG Will Level modified independent at 10/06/2017 1340 STG Assistive Device 4 wheeled walker (4WW) at 10/06/2017 1340 STG Distance (feet) 50 at 10/06/2017 1340 Stair Goal Flowsheet Row Most Recent Value STG Status new at 10/06/2017 1340 STG Will Level modified independent at 10/06/2017 1340 STG Assistive Device 2 rails at 10/06/2017 1340 STG Number of Stairs 4 at 10/06/2017 1340 Electronically signed by: Merrill Evans PTA, 10/08/2017 11:32 lan of Care - Kelly Rivera, MINILAB OPERATOR - 10/08/2017 5:56 AM PSTProblem: Patient Care [...] intermittent pi nk/white thick sputum. VSS day. Hiram x3 for generalized pain. continues to refuse [...] afternoon regarding discharge planning. They live in [place], [place] a mobile home with four steps [...] is Dr. Matson. Darshan butt is a [place] and is 40% service connected per L[place] at the [place]. He uses the [facility] or the [place] pharmacy. He owns a WC, a 4WW and a cane. He chose [facility] as his D [place] agency of choice. We also discussed [facility] in [place] and the [place] for DME. He is ag reeable to Home Health services as well. For a "Plan B" he chose: 1) [place] and Mrs Sania Nobel will take a look at [facility], [facility] [place] and [place] nd let me know their second [...] still limited by high flow Level of Will: minimal assist (75% patient effort) Assistive Device: 2 wheeled walker (FWW) Distance (feet): 3 Transfers impaired activity tolerance, cues for safety and hand placement; limited mobility d/t on hi gh flow NC Bed-Chair, Level of Will: contact guard assist, verbal cues required, set up requir ed Chair-Bed, Level of Will: not tested Not-Owlxq-Dyu, Assistive Device: 2 wheeled walker (FWW) Sit-Stand, Level of Will: verbal cues required, tactile cues required, contact guar d assist Stand-Sit, Level of Will: contact guard assist, verbal cues required Zil-Ispkk-Oxg, Assistive Device: 2 wheeled walker (FWW) Impairments: strength decreased, impaired balance Bed Mobility increased time, assist for line management Supine to Sit, Level of Will: moderate assist (50% patient effort), verbal cues [...] STG Status progressing at 10/07/2017 1340 STG Will Level modified independent at 10/06/2017 1340 Gcx-Sjdtu-Xbp Goal Flowsheet Row Most Recent Value STG Status progressing at 10/07/2017 1340 STG Will Level modified independent at 10/06/2017 1340 STG Assistive Device 4 wheeled walker (4WW) at 10/06/2017 1340 Gait Goal Flowsheet Row Most Recent Value STG Status progressing at 10/07/2017 1340 STG Will Level modified independent at 10/06/2017 1340 STG Assistive Device 4 wheeled walker (4WW) at 10/06/2017 1340 STG Distance (feet) 50 at 10/06/2017 1340 Stair Goal Flowsheet Row Most Recent Value STG Status new at 10/06/2017 1340 STG Will Level modified independent at 10/06/2017 1340 STG [...] line mgmt. Supine to Sit, Level of Will: minimal assist (75% patient effort), verbal cues requ ired, tactile cues required, set up required, 1 person + 1 person to manage equipment Sit to Supine, Level of Will: not tested Safety Issues: decreased use of arms for pushing/pulling, decreased use of legs for bridgin g/pushing Impairments: strength decreased, impaired balance Transfers Impaired activity tolerance, cues for safety, hand plcmt on FWW. Pt still on high flow O2 so limited in mobility. Bed-Chair, Level of Will: contact guard assist, verbal cues required, set up requir ed, 1 person + 1 person to manage equipment Sit-Stand, Level of Will: 1 person + 1 person to manage equipment, verbal cues requ ired, tactile cues required, contact guard assist Stand-Sit, Level of Will: contact guard assist, 1 person + 1 person to manage equip ment, verbal cues required Tyw-Rhavr-Bjy, Assistive Device: 2 wheeled walker (FWW) Impairments: strength decreased, impaired balance OT Goal Review Date Flowsheet Row Most Recent Value STG Review Date 10/10/17 at 10/07/2017 1157 Grooming Goal Flowsheet Row Most Recent Value STG Status new at 10/07/2017 1157 STG Will Level stand by assist at 10/07/2017 1157 STG Position supported standing, standing at 10/07/2017 1157 STG Adaptive Equipment none at 10/07/2017 1157 Toilet Transfer Goal Flowsheet Row Most Recent Value STG Status new at 10/07/2017 1157 STG Will Level stand by assist, set up required, [...] SpO2 >92 on RA by 10/07/2017. 2. oRn will be mod I with mobility in [...] bridging to PO tomorrow. PO metoprolol held. Hiram X 3 for pain. continues to refuse to wear ma sk for positive flu in room, agreed to wear mask when leaving pt. Room. lan of Care - Ron Denton, MINILAB OPERATOR - 10/06/2017 4:20 PM PSTProblem: Patient Care [...] mo tor exam, PO trials and performance. ROOMS DIRECTOR recommends diet upgrade to regular textures with th in lquids with pt always upright in chair for meals. ROOMS DIRECTOR educated pt on pacing himself when eating. Staff to cut food for him d/t mild UE weakness, reduced dexterity. Pt verbalized und erstanding. No further skilled ROOMS DIRECTOR services needed at this time. Textures attempted [...] 3 days. He correctly recalled being in [place] and that his had t o remind him that this AM as he thought he was at [facility]. Patient pleasant and agreeable. Re ported [...] high flow O2 needs Chair-Bed, Level of Will: minimal assist (75% patient effort), 1 person + 1 person to manage equipment, verbal cues required, tactile cues required Jyb-Frdui-Jav, Assistive Device: 2 wheeled walker (FWW) Sit-Stand, Level of Will: minimal assist (75% patient effort), 1 person + 1 person to manage equipment, verbal cues required, tactile cues required Stand-Sit, Level of Will: contact guard assist, 1 person + 1 person to manage equip ment, verbal cues required Mit-Flujm-Sua, Assistive Device: 2 wheeled walker (FWW) Impairments: strength decreased, impaired balance (activity tolerance) Bed Mobility increased time and cues for safety Supine to Sit, Level of Will: moderate assist (50% patient effort), 1 person [...] Strength: gross deconditioning due to prolonged bedrest [facility] Turning over in bed: [...] steps with a railing: dependent/unable TOTAL - [facility] BASIC MOBILITY : 14 Completed the [facility] Activity Measure for Post Acute Care (-PAC) "6 Clicks" Ba sic Mobility Inpatient Short Form. This version of the AM-PAC is an assessment tool used to measure a person's level of disability in performing basic mobility tasks. This patient's score indicates a performance of 61.29% impairment in the functioning of basic mobility. Raw Score - Functional Limitation % (for [facility]) - "Severity Modifier" CN 6 - 100.00 [...] STG Status new at 10/06/2017 1340 STG Will Level modified independent at 10/06/2017 1340 Iuy-Qrdwr-Whe Goal Flowsheet Row Most Recent Value STG Status new at 10/06/2017 1340 STG Will Level modified independent at 10/06/2017 1340 STG Assistive Device 4 wheeled walker (4WW) at 10/06/2017 1340 Gait Goal Flowsheet Row Most Recent Value STG Status new at 10/06/2017 1340 STG Will Level modified independent at 10/06/2017 1340 STG Assistive Device 4 wheeled walker (4WW) at 10/06/2017 1340 STG Distance (feet) 50 at 10/06/2017 1340 Stair Goal Flowsheet Row Most Recent Value STG Status new at 10/06/2017 1340 STG Will Level modified independent at 10/06/2017 1340 STG [...] Evaluation: Extubated yesterday afternoon. On bipap overnight. Hiram X 3 given for pain. A/O slight [...] Endoscopy Patient: Ron Hood : 1955 Acct: [id number] Exam Date: Thursday, October 05, 2017 Doctor: [...] If unable to reach your physician, call [facility] Emergency Department at Ext. 2500 Your [...] AM PSTPlan of Care - Blanche Fine, MINILAB OPERATOR - 10/05/2017 5:31 AM PSTProblem: [facility] Overview (Adult) Goal: Care Team Goals [...] or care interventions/approaches. Outcome: Improving lan of [facility] - Demetra Vaughn RN - 10/04/2017 4:31 [...] extubated. Ron lives with his spouse in [place]. Ron is normally independent with his needs. Ron uses [facility]. PCP: Dano CM will need to follow up with Ron closer to discharge. Electronically signed by: Keyonna Goel 10/04/2017 11:51 lan of [facility] - Junior Villanueva Chaplain - 10/04/2017 10:30 [...] who is admitted for Pulmonary edema [J81.1]. Solution Engineer visit was part of routine rounding. Spiritual Evaluation: Patient was sleeping. Debbie was resting at his bedside. She was hopeful about his cond ition and said that he is doing better today than yesterday. 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 She s aid that she was raised Sikh, but is open religiously at this point. She desired rest t his morning. Spiritual Interventions: Rent Control Office Manager attended, offered care, listened actively, and [...] 12.5. Pillai d cardiology, patient went for [facility] with findings of: severe in-stent stenosis of L main to o stial LAD stent, Severe in-stent stenosis ostial proximal L circ stent. Patient was recommen ded if patient had cardiac instability to be transferred to [place], [facility] abx, fluid support. Hep gtt was not recommended. Patient will be continued on plavix, ASA, statin. Patient was continued on azithromycin, ceftriaxone . Maintenance IVFs was started given L ventricular filling pressures and unchanged Ef. Patie nt was weaned off levophed during the day. Awaiting for cultures. lan of [facility] - Shoaib Bueno MINILAB OPERATOR - 018 6:51 PM PSTProblem: Patient Care [...] Evaluation: Patient was a direct admit from [facility]. Respiratory Failure. Tested positive for [...] | | | | [address] [place] [place] | | | | | | [address] | | | | | | | | +--------+ + + + + | 04/16/ | Office | Cardiology | Alin Anderson | | | 2019 | Visit | | MD [address] | | | | | | [address] | | | | | | [place] [address] | | | | | | [phone] | | | | | | | | +--------+ + + + + | 04/16/ | Procedure | Cardiology | | | | 2019 | visit | | | | +--------+ + + + + | 04/25/ | Office | Cardiology | Rocio Pearl, | | | 2020 | Visit | | MD [address] | | | | | | [place], [place] | | | | | | [address] | | | | | | | [...] [address] | [place] | [phone] | | [facility] | | [address] | | | - LABORATORY | | [...] + | [facility] | [address] | [place] | [phone] | | [facility] | | [address] | | | - LABORATORY | | [...] [address] | [place] | [phone] | | [facility] | | [address] | | | - LABORATORY | | [...] ST. | [address] | [place] | [phone] | | [facility] | | [address] | | | - LABORATORY | | [...] [address] | [place] | [phone] | | [facility] | | [address] | | | - LABORATORY | | [...] | | POC | | | [facility] | | | | | [...] + | [facility] | [address] | [place] | [phone] | | [facility] | | [address] | | | - LABORATORY | | [...] [address] | [place] | [phone] | | [facility] | | [address] | | | - LABORATORY | | [...] | | | FILTRATION | mL/min/1.73m2 | [facility] | | | [place] | RATE,ESTIMATED | | MEDICAL | | | | mL/min/1.88u5Rsbj than | | CENTER - | | [...] [address] | [place] | [phone] | | [facility] | | [address] | | | - LABORATORY | | [...] [address] | [place] | [phone] | | [facility] | | [address] | | | - LABORATORY | | [...] ST. | [address] | [place], [place] | [phone] | | [facility] | | [address] | | | - LABORATORY | | [...] [address] | [place] | [phone] | | [facility] | | [address] | | | - LABORATORY | | [...] + | [facility] | [address] | [place] | [phone] | | [facility] | | [address] | | | - LABORATORY | | [...] [address] | [place] | [phone] | | [facility] | | [address] | | | - LABORATORY | | [...] [address] | [place] | [phone] | | [facility] | | [address] | | | - LABORATORY | | [...] [address] | [place] | [phone] | | [facility] | | [address] | | | - LABORATORY | | [...] [address] | [place] | [phone] | | [facility] | | [address] | | | - LABORATORY | | [...] [address] | [place] | [phone] | | [facility] | | [address] | | | - LABORATORY | | [...] | 1.29 | 0.60 - 1.30 | [place] | | | | | mg/dL | [facility] | | | | | | MEDICAL | | | | | | CENTER - | | | | | | LABORATORY | | + + + + + + | eGFR if not | 56 (L)Comment: | >=60 | [place] | | | | GLOMERULAR FILTRATION | mL/min/1.73m2 | [facility] | | | [place] | RATE,ESTIMATED | | MEDICAL | | | | mL/min/1.60z4Kbpq than | | CENTER - | | [...] + | [facility] | [address] | [place] | [phone] | | [facility] | | [address] | | | - LABORATORY | | [...] + | [facility] | [address] | [place] | [phone] | | [facility] | | [address] | | | - LABORATORY | | [...] | | Source | | | [facility] | | | | | [...] + | [address] [facility] | [address] | [place] | [phone] | | [facility] | | [address] | | | - LABORATORY | | [...] [address] | [place] | [phone] | | [facility] | | [address] | | | - LABORATORY | | [...] [address] | [place] | [phone] | | [facility] | | [address] | | | - LABORATORY | | [...] The | | | | | | [employer] | | | | | [...] + + | Performing | Address | City/State/[facility] | Phone Number | | Organization | | | | + + + + + | [facility] | [address] | [place] | [phone] | | [facility] | | [address] | | | - LABORATORY | | [...] + | [address] | [address] | [place] | [phone] | | [facility] | | [address] | | | - LABORATORY | | [...] [address] | [place] | [phone] | | [facility] | | [address] | | | - LABORATORY | | [...] [address] | [place] | [phone] | | [facility] | | [address] | | | - LABORATORY | | | | + + + + + XR Chest AP Portable (10/06/2017 6:09 AM [facility]) + + | Specimen | + [...] [address] | [place] | [phone] | | [facility] | | [address] | | | - LABORATORY | | [...] mL/min/1.73m2 | [facility] | | | [place] | RATE,ESTIMATED | | MEDICAL | | | | mL/min/1.86a9Bdmt than | | CENTER - | | [...] [address] | [place] | [phone] | | [facility] | | [address] | | | - LABORATORY | | [...] [address] | [place] | [phone] | | [facility] | | [address] | | | - LABORATORY | | [...] + | [facility] | [address] | [place] | [phone] | | [facility] | | [address] | | | - LABORATORY | | [...] | | | | ZOHRA BREWER, FLORY ([id number]) | | | | | | on [...] | | | | FLORY العلي MD ([id number]) | | | | | | on [...] [address] | [place] | [phone] | | [facility] | | [address] | | | - LABORATORY | | | | + + + + + EGD (10/05/2017 10:56 AM PST) + + | Specimen | + + | | + + + + -+ | Narrative | Performed At | + + -+ | | [facility] | | GastroenterologyPatient Name: Ron Heather Date: | PROVATION | | 10/05/2017 10:56 AMMRN: [id number] #: [id number] of : | | | 5Admit Type: InpatientAge: 61Room: [facility] 01Gender: MaleNote | | | Status: FinalizedAttending MD: Terry Weir MDProcedure: | | | Upper GI endoscopyIndications: Suspected upper | | | gastrointestinal bleedingProviders: Terry Weir MD, | | | Gil Tam RN, Elizabeth Patel | | | ALFONSO Rivers, Siddharth Bradley CMA, [place] Jc, | | | Stitcher Special Machine, Yong Napier MD (Anesthesia | | | [...] the anesthesiologist and | | | the planetarium technician in the procedure room. Mental Status [...] Scope In: 11:00:34 AMScope Out: 11:11:30 AM [place] | | | [facility], [address] [place] [address] | | | [phone] | | | area of the papilla [...] |Scope Out: 11:11:30 AM | | | [facility], [address] [place] [address] | | | [address] | | + + -+ + +---------+ [...] [address] | [place] | [phone] | | [facility] | | [address] | | | - LABORATORY | | [...] [address] | [place] | [phone] | | [facility] | | [address] | | | - LABORATORY | | [...] 17 | 7 - 18 mg/dL | [facility] | | | | | | [facility] | | | | | | MEDICAL | | | | | | CENTER - | | | | | | LABORATORY | | + + + + + + | Creatinine | 1.19 | 0.60 - 1.30 | [facility] | | | | | mg/dL | [facility] | | | | | | MEDICAL | | | | | | CENTER - | | | | | | LABORATORY | | + + + + + + | eGFR if not | >60Comment: GLOMERULAR | >=60 | [facility] | | | | FILTRATION | mL/min/1.73m2 | [facility] | | | [place] | RATE,ESTIMATED | | MEDICAL | | | | mL/min/1.23q4Kzew than | | CENTER - | | [...] [address] | [place] | [phone] | | [facility] | | [address] | | | - LABORATORY | | [...] | | | | | | [facility] | | [...] [address] | [place] | [phone] | | [facility] | | [address] | | | - LABORATORY | | [...] + | [facility] | [address] | [place] | [phone] | | [facility] | | [address] | | | - LABORATORY | | [...] [address] | [place] | [phone] | | [facility] | | [address] | | | - LABORATORY | | [...] | | | | FLORY العلي MD ([id number]) | | | | | | on [...] ST. | [address] | [place] | [phone] | | [facility] | | [address] | | | - LABORATORY | | [...] [address] | [place] | [phone] | | [facility] | | [address] | | | - LABORATORY | | [...] | | | | | results. [employer] | | | | | | [employer] [...] + | [facility] | [address] | [place] | [phone] | | [facility] | | [address] | | | - LABORATORY | | [...] PS+ 10, PEEP +5, 40%, ETCO2 35 FMI354% | [facility] | | | [facility] | | | [facility] | | | - LABORATORY | + + + + + + + + | Performing | Address | City/State/Zipcode | Phone Number | | Organization | | | | + + + + + | [facility] | [address] | [place] | [phone] | | [facility] | | [address] | | | - LABORATORY | | [...] [address] | [place] | [phone] | | [facility] | | [address] | | | - LABORATORY | | [...] [address] | [place] | [phone] | | [facility] | | [address] | | | - LABORATORY | | [...] [address] | [place] | [phone] | | [facility] | | [address] | | | - LABORATORY | | [...] | mL/min/1.73m2 | [facility] | | | [place] | RATE,ESTIMATED | | MEDICAL | | | | mL/min/1.60u3Jeuq than | | CENTER - | | [...] + | [address] [facility] | [address] | [place] | [phone] | | [facility] | | [address] | | | - LABORATORY | | [...] | | | | | results. [employer] | | | | | | [employer] [...] [address] | [place] | [phone] | | [facility] | | [address] | | | - LABORATORY | | [...] [address] | [place] | [phone] | | [facility] | | [address] | | | - LABORATORY | | [...] (H) | 7 - 18 mg/dL | [facility] | | | | | | [facility] | | | | | | MEDICAL | | | | | | CENTER - | | | | | | LABORATORY | | + + + + + + | Creatinine | 1.42 (H) | 0.60 - 1.30 | [facility] | | | | | mg/dL | [...] mL/min/1.73m2 | [facility] | | | [place] | RATE,ESTIMATED | | MEDICAL | | | | mL/min/1.38l4Gurn than | | CENTER - | | [...] [address] | [place] | [phone] | | [facility] | | [address] | | | - LABORATORY | | [...] | Critical Result called | | [facility] | | | | to and read [...] [address] | [place] | [phone] | | [facility] | | [address] | | | - LABORATORY | | [...] The | | | | | | [employer] | | | | | [...] [address] | [place] | [phone] | | [facility] | | [address] | | | - LABORATORY | | [...] Before start of procedure done: Yes GUIDE DOMESTIC TOUR: Delmer | | | Mila Gomez M.D., [...] Right femoral artery 6 | | | Upper Sorbian CLOSURE DEVICE:. Sheath left in place as [...] | | | technique and a 6 Upper Sor[place] sheath was inserted. Selective coronary | | | arteriography was performed using 6 Upper Sorbian Kymberly right 4 and left 4 | [...] | | will transfer the patient to [place] for consideration of urgent | | | coronary revascularization. Delmer Gomez M.D., | | | F.A.C.C.Interventional CardiologistProvidence [facility] | | | [place] | [...] will transfer | | |the patient to [place] for consideration of urgent coronary | | |revascularization. | | | | | |Delmer Gomez M.D., F.A.C.C. | | |Molded Frames Assembler | | |[facility] | | |[place] | | | [...] ST. | [address] | [place] | [phone] | | [facility] | | [address] | | | - LABORATORY | | [...] MD | | | | | | ([id number]) on 10/04/2017 | | | | | [...] | | | POC | | | [facility] | | | | | [...] [address] | [place] | [phone] | | [facility] | | [address] | | | - LABORATORY | | [...] [address] | [place] | [phone] | | [facility] | | [address] | | | - LABORATORY | | [...] | | [facility] | | | [facility] | | | - LABORATORY | + + + + + + + + | Performing | Address | City/State/Zipcode | Phone Number | | Organization | | | | + + + + + | [facility] | [address] | [place] | [phone] | | [facility] | | [address] | | | - LABORATORY | | [...] [address] | [place] | [phone] | | [facility] | | [address] | | | - LABORATORY | | | | + + + + + Troponin I (10/03/2017 11:29 AM PST) + + + + + + | Component | Value | Ref Range | Performed | Pathologist | | | | | At | Signature | + + + + + + | Troponin I | 12.50 ()Comment: | <0.06 ng/mL | [facility] | | | | Reference | | [...] | | | | | | [employer] | | | | | [...] [address] | [place] | [phone] | | [facility] | | [address] | | | - LABORATORY | | [...] [address] | [place] | [phone] | | [facility] | | [address] | | | - LABORATORY | | [...] | | Direct | | mg/dl | [facility] | | | | | [...] [address] | [place] | [phone] | | [facility] | | [address] | | | - LABORATORY | | [...] ST. | [address] | [place] | [phone] | | [facility] | | [address] | | | - LABORATORY | | [...] 1.55 (H) | 0.60 - 1.30 | [facility] | | | | | mg/dL | [facility] | | | | | | MEDICAL | | | | | | CENTER - | | | | | | LABORATORY | | + + + + + + | eGFR if not | 46 (L)Comment: | >=60 | [place] | | | | GLOMERULAR FILTRATION | mL/min/1.73m2 | [facility] | | | [place] | RATE,ESTIMATED | | MEDICAL | | | | mL/min/1.68s0Ddhy than | | CENTER - | | [...] + | [facility] | [address] | [place] | [phone] | | [facility] | | [address] | | | - LABORATORY | | [...] | | Count | | | [facility] | | [...] + | [address] [facility] | [address] | [place] | [phone] | | [facility] | | [address] | | | - LABORATORY | | [...] Number 458 J Patient | | | [id number] Date of Study 10/03/2017 | | | Number Visit Number [id number] | | | Referring Physician BENEDICT RAYGOZA Number Date of | | | 1955 [address] [place] | | | Age 61 year(s) Interpreting DELMER | | | Mila GOMEZ MD, | | | Forensic Document Examiner FAC Gender Male | | | Nurse Stress | | | Stitcher Special Machine Procedure Type of Study TTE procedure: ECHO [...] Volume: 42.65 ml | | | EF Ikdzbjsxb46% Left | | | Ventricle Diastolic Dimension: [...] Volume: 42.65 ml | | | EF Tnwqhdkqt07% | | | | | | Left [...] Rad Results In - 10/03/2017 1:00 PM [facility] Transthoracic Echocardiography Report | | (TTE) Demographics Patient Name MIKE VELASQUEZ Room Number 458 | | J Patient [id number] Date of Study 10/03/2017 Number Visit Number | | [id number] Referring Physician BENEDICT RAYGOZA Number | | Date of 1955 [address] [place] Age | | 61 year(s) Interpreting DELMER GOMEZ MD, | | Forensic Document Examiner [facility] Gender Male 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 [...] ----- Electronically signed by DELMER GOMEZ MD, [facility](Interpreting physician) on | | 10/03/2017 12:59 [...] LA Volume: 42.65 ml EF | | Osddzworu45% Left Ventricle Diastolic Dimension: 5.92 cm Septum [...] LA Volume: 42.65 ml | | EF Ovfrlazpz72% | | | | Left Ventricle | [...] ST. | [address] | [place] | [phone] | | [facility] | | [address] | | | - LABORATORY | | [...] [address] | [place] | [phone] | | [facility] | | [address] | | | - LABORATORY | | [...] [address] | [place] | [phone] | | [facility] | | [address] | | | - LABORATORY | | [...] [address] | [place] | [phone] | | [facility] | | [address] | | | - LABORATORY | | [...] [address] | [place] | [phone] | | [facility] | | [address] | | | - LABORATORY | | [...] ST. | [address] | [place] | [phone] | | [facility] | | [address] | | | - LABORATORY | | [...] | | 1 | | | [facility] | | [...] + | [facility] | [address] | [place], [place] | [phone] | | [facility] | | [address] | | | - LABORATORY | | [...] [address] | [place] | [phone] | | [facility] | | [address] | | | - LABORATORY | | [...] + | Performed at: 01 - [facility] [address] | REFERENCE LAB | | [id number] Respiratory Physician: Yesenia Gee MD, Phone: [phone] | [facility] | + + + + + + + + | Performing | Address | City/State/Zipcode | Phone Number | | Organization | | | | + + + + + | REFERENCE LAB | [address] | [place], [place] | [phone] | | [facility] | [address] | [address] | | + + + + + [...] [address] | [place] | [phone] | | [facility] | | [address] | | | - LABORATORY | | [...] - 1.030 | [facility] | | | [place], | | | [facility] | | [...] [address] | [place] | [phone] | | [facility] | | [address] | | | - LABORATORY | | [...] artery disease involving wales coronary artery of wales heart without | | angina pectoris | + + | Acute respiratory acidosis Acidosis | + + | CAD (coronary artery disease) Coronary atherosclerosis of unspecified type of vessel, | | wales or graft | + + | Pulmonary [...] | | | | First dose on [facility] 10/08/17 at 0915 | | | [...] scheduled: AC, | | | NPO, Daytime 8418-2410 Use NIGHT | | | DOSE for doses scheduled: | | | HS, 3AM, Nighttime 2722-1263, | | + +---+ | | | [...]
--- OUTSIDE RECORDS SUMMARY | ~2020-03-04 | XMS | Encounter Summary ---
Demographics + + + | Address | [address] | | | [place] [address] | + + + | Home Phone [...] [place] | | | | | [address] | | + + + + + Care Team Providers + +------+ + | Care Aboriginal Education Worker Coordinator Name | Role | Phone | [...] | | | [address] | [address] | | | | | [place] [address] | | | | | | [phone] | | | +--------+---------+ + + + [...] might be different fr om the original. [facility] [address] [facility] [address] Cardiac Rehab Date: 09/06/2019 Patient Information Patient Name: Bob Will Date of : 1955 Age: 63 y.o. Encounter Diagnoses Code Name Primary? I50.22 Chronic systolic CHF (congestive heart failure) ([facility]) Number of Visits Approved: [...] | | | | | [place] [address] | | | | | | [phone] | | | | | | | [...] [place] | | | | | | [address] | | | | | | | | +--------+ + + + + documented as of this encounter Visit Diagnoses + + | Diagnosis | + + | Chronic systolic CHF (congestive heart failure) (HCC) | + + documented in this encounter"
--- OUTSIDE RECORDS SUMMARY | ~2020-03-04 | XMS | Encounter Summary ---
Demographics + + + | Address | [address] | | | [place] [address] | + + + | Home Phone [...] [place], [place] | | | | | [address] | | + + + + + Care Team Providers + +------+ + | Care Cushion Worker Name | Role | Phone | + +------+ + PCP | Unavailable | + +------+ + Reason for Visit +--------+--------+ + | Reason | Onset | Comments | | | Date | | +--------+--------+ + | Other | 06/02/ | patient having issues | | | 2017 | | +--------+--------+ + Encounter Details +--------+ + + + + | Date | Type | Department | Care Team | Description | +--------+ + + + + | 06/02/ | Telephone | [facility] | Jenny, | Other (patient | | 2018 | | CARDIOLOGY [address] | ADARSH Santo [address] | having issues) | | | | [place], | [place], | | | | | [place] [address] | [place] [address] | | | | | [phone] | [phone] | | | | | | | [...] Telephone Encounter - Lilian Machado RN - 06/02/2018 3:12 PM Joaquim is notified, lab order faxed to Christa in [place], she will have him do it on Thursday since 3 days fa lls on Thursday and the lab is not open. ...........................................Lilian Machado RN on 06/02/18 at 15:12 elephone Encounter - Hansa Alvarado ARNP - 06/02/2018 11:06 AM PDTHave him take Furosemide 40 mg for 3 da ys and recheck BNP and BMP after the 3 days. Don't over do in water intake, maybe keep it by 6224-8361 ml daily Electronically signed by: ADARSH Stevens 06/02/2018 11:14 elephone Encoun Lilian Bennett RN - 06/02/2018 9:44 AM Joaquim called, she reports that Ashok murguia as gained 3 pounds from yesterday to today and is short of breath. He has some edema but no t much. He was on the phone at the same time on speaker and mentions that he thinks that he had too much fluid intake yesterday. He has not taken furosemide since we told him to use it only 2 days per phone note on 05-27-18. He has an appointment to see Hansa in the office on 06/10. I will consult Hansa for instructions and then let them know later today ....... ....................................Lilian Machado RN on 06/02/18 at 9:47 documented in this encounter Plan of Treatment [...] [place] | | | | | | [id number] | | | | | | | | +--------+ + + + + | 04/16/ | Office | Cardiology | Alin Anderson | | | 2019 | Visit | | MD [address] | | | | | | [address] | | | | | | [place] [address] | | | | | | [phone] | | | | | | | | +--------+ + + + + | 04/16/ | Procedure | Cardiology | | | | 2019 | visit | | | | +--------+ + + + + | 04/25/ | Office | Cardiology | Rocio Pearl, | | | 2019 | Visit | | MD [address] | | | | | | [place] | | | | | | [address] | | | | | | | | +--------+ + + + + documented as of this encounter Results Basic Metabolic Panel (06/10/2018 11:28 AM PDT) + + [...] | K | 4.6 | 3.5 - 5.1 | [facility] | | | | | mmol/L | [facility] | | [facility] | | | | | | [facility] - | | | | | | LABORATORY | | + + + + + + | Cl | 104 | 98 - 109 mmol/L | [facility] [...] + | Anion Gap | 8 | 3 - 16 mmol/L | [facility] | | | | | | [facility] | | [facility] | [facility] | | | | | | [facility] - | | | | | | LABORATORY | | + + + + + + | Glucose | 115 (H) | 70 - 109 mg/dL | [facility] | | | | | | [facility] | | | | | | [facility] | | | | | | C[facility] - | | | | | | LABORATORY | | + + + + + + | BUN | 24 (H) | 7 - 18 mg/dL | [facility] | | | | | | [facility] | | | | | | [facility] | | | | | | CENTER - | | | | | | LABORATORY | | + + + + + + | Creatinine | 1.63 (H) | 0.60 - 1.30 | [facility] | | | | | mg/dL | [facility] | | | | | | MEDICAL | | | | | | CENTER - | | | | | | LABORATORY | | + + + + + + | eGFR if not | 43 (L)Comment: | >=60 | [facility] | | | | GLOMERULAR FILTRATION | mL/min/1.73m2 | [facility] | | | [facility]ITIAN | RATE,ESTIMATED | | MEDICAL | | | | mL/min/1.98w8Zpff than | | CENTER - | | [...] + + | Calcium | 9.1 | 8.3 - 10.5 | [facility] | | | | | mg/dL | [facility] | | | | | | MEDICAL | | | | | | CENTER - | | | | | | LABORATORY | | + + + + + + | BUN/Creatin | 14.7 | | [facility] | | | ine [...] ST. | [address] | [place], [place] | [phone] | | [facility] | | [address] | | | - LABORATORY | | | | + + + + + B Type Natriuretic Peptide (06/10/2018 11:28 AM PDT) + +---------+ + + + | Component | Value | Ref Range | Performed | Pathologist | | | | | At | Signature | + +---------+ + + + | BNP | 366 (H) | <100 pg/mL | [facility] | [...] [address] | [place] | [phone] | | [facility] | | [address] | | | - LABORATORY | | | | + + + + + documented in this encounter Visit Diagnoses + + | Diagnosis | + + | Congestive heart failure, unspecified HF chronicity, unspecified heart failure type | | (HCC) - Primary | + + documented in this encounter"
--- OUTSIDE RECORDS SUMMARY | ~2020-03-04 | XMS | Encounter Summary ---
Demographics + + + | Address | [address] | | | [place] [address] | + + + | Home Phone [...] [place] | | | | | [address] | | + + + + + Care Team Providers + +------+ + | Care Electrical Installation Inspector Name | Role | Phone | + +------+ + | Amy Olivares MD | PCP | | + +------+ + Encounter Details +--------+ + + + + | Date | Type | Department | Care Team | Description | +--------+ + + + + | 04/13/ | Orders Only | [facility] | Provider, | | | 2019 | | SYSTEM GENERIC OP | MD [address] | | | | | [address] | [place] | | | | | [address] [place], [place] | [place] [address] | | | | | [address] | | | | | | [phone] | | | +--------+ + + + [...] [place] | | | | | | [address] | | | | | | | | +--------+ + + + + | 04/16/ | Office | Cardiology | Alin Anderson | | | 2019 | Visit | | MD Cheryl Arreguin | | | | | | [address] | | | | | | [place] [address] | | | | | | [phone] | | | | | | | [...] [place] | | | | | | [address] | | | | | | | | +--------+ + + + + documented as of this encounter Visit Diagnoses Not on filedocumented in this encounter"
--- OUTSIDE RECORDS SUMMARY | ~2020-03-04 | XMS | Encounter Summary ---
Demographics + + + | Address | [address] | | | [place] [address] | + + + | Home Phone [...] [place] | | | | | [address] | | + + + + + Care Team Providers + +------+ + | Care Supervisor Clam Bed Name | Role | Phone | [...] | CARDIOLOGY [address] | [address] | systolic congestive | | | | [place], | [place], | heart failure (HCC) | | | | [place] [address] | [place] [address] | (Primary Dx); | | | | [phone] | [phone] | Coronary artery | | | | | | disease, angina | | | | | | presence | | | | | | unspecified, | | | | | | unspecified vessel | | | | | | or lesion type, | | | | | | unspecified whether | | | | | | [place] or | | | | | | [...] | | | | | [place] [address] | | | | | | [phone] | | | | | | | | +--------+ + + + + | 04/16/ | Procedure | Cardiology | | | | 2019 | visit | | | | +--------+ + + + + | 04/25/ | Office | Cardiology | Rocio Pearl, | | | 2019 | Visit | | MD Cheryl [address] | | | | | | [place], [place] | | | | | | [address] | | | | | | | [...] or lesion | | type, unspecified whether [place] or transplanted heart | + + documented in this encounter"
--- OUTSIDE RECORDS SUMMARY | ~2020-03-04 | XMS | Encounter Summary ---
Demographics + + + | Address | [address] | | | [place] [address] | + + + | Home Phone [...] [place] | | | | | [address] | | + + + + + Care Team Providers + +------+ + | Care Box Sealing Machine Feeder Name | Role | Phone [...] [address] [place], [place] | failure) ([facility]) | | | | [address] | [address] | (Primary Dx) | | | | [place] [address] | | | | | | [phone] | | | +--------+---------+ + + + [...] [place] | | | | | | [address] | | | | | | | | +--------+ + + + + | 04/16/ | Office | Cardiology | Alin Anderson | | | 2019 | Visit | | MD Cheryl Arreguin | | | | | | [address] | | | | | | [place] [address] | | | | | | [phone] | | | | | | | [...] [place] | | | | | | [address] | | | | | | | | +--------+ + + + + documented as of this encounter Visit Diagnoses + + | Diagnosis | + + | Chronic systolic CHF (congestive heart failure) (HCC) - Primary | + + documented in this encounter"
--- OUTSIDE RECORDS SUMMARY | ~2020-03-04 | XMS | Encounter Summary ---
Demographics + + + | Address | [address] | | | [place] [address] | + + + | Home Phone [...] [place] | | | | | [address] | | + + + + + Care Team Providers + +------+ + | Care Recording Studio Internship Name | Role | Phone | + +------+ + | Aym Olivares MD | PCP | | + [...] | | | heart | [place], | [place] | | | | | failure | [place] [address] | [place] | | | | | (HCC) | Phone: | [address] | | | | | I50.22 | [phone] | Phone: | | | | | Procedures | Fax: | [phone] | | | | | Cardiac | [phone] | Fax: | | | | | Rehab | | [phone] | +--------+--------+ + + + + Encounter [...] [address] [place], [place] | failure) ([facility]) | | | | [address] | [address] | | | | | [place] [address] | | | | | | [phone] | | | +--------+---------+ + + + [...] of this encounter Progress Notes Kathy Garcia, CIVIL CAD TECH - 06/07/2019 12:00 PM PDTFormatting of this note might be different f rom the original. [facility] [address] [place] [address] Cardiac Rehab Date: 06/07/2019 Patient Information Patient Name: Bob Will Date of : 1955 Age: 63 y.o. Encounter Diagnoses Code Name Primary? I50.22 Chronic systolic CHF (congestive heart failure) ([facility]) Number of Visits Approved: 27 Taken Medications [...] [place] | | | | | | [address] | | | | | | | | +--------+ + + + + | 04/16/ | Office | Cardiology | Alin Anderson | | | 2019 | Visit | | MD Cheryl Arreguin | | | | | | [address] | | | | | | [place] [address] | | | | | | [phone] | | | | | | | [...] [place] | | | | | | [address] | | | | | | | | +--------+ + + + + documented as of this encounter Visit Diagnoses + + | Diagnosis | + + | Chronic systolic CHF (congestive heart failure) (HCC) | + + documented in this encounter"
--- OUTSIDE RECORDS SUMMARY | ~2020-03-04 | XMS | Encounter Summary ---
Demographics + + + | Address | [address] | | | [place] [address] | + + + | Home Phone [...] + | [place] | ECON | [place] | | | | | [address] | | + + + + + Care Team Providers + +------+ + | Care Compressor Technician Name | Role | Phone | [...] | | | | | disease, | [address] | [address] | | | | | angina | [place], | [place] | | | | | presence | [place] [address] | [place], [place] | | | | | unspecified, | Phone: | [address] | | | | | unspecified | [phone] | Phone: | | | | | vessel or | Fax: | [phone] | | | | | lesion type, | [phone] | Fax: | | | | | unspecified | | [phone] | | | | | whether | | | | | | | [place] or | | | | | | | transplanted | | | | | | | heart Post | | | | | | | PTCA | | | | | | | Procedures | | | | | | | MD | [...] | 06/02/ | Orders Only | [facility] | Randy Figueroa, | Coronary artery | | 2018 | | CARDIOLOGY [address] | [address] [facility] | disease, angina | | | | [place], | [place], | presence | | | | [place] [address] | [place] [address] | unspecified, | | | | [phone] | [phone] | unspecified vessel | | | | | | or lesion type, | | | | | | unspecified whether | | | | | | [place] or | | | | | | [...] [place] | | | | | | [address] | | | | | | | | +--------+ + + + + | 04/16/ | Office | Cardiology | Alin Anderson | | | 2019 | Visit | | MD [address] | | | | | | [address] | | | | | | [place] [address] | | | | | | [phone] | | | | | | | [...] [place] | | | | | | [address] | | | | | | | [...] whether | | | | | | [place] or | | | | | | transplanted heart | | | | | | Post PTCA | | + + +--------+ + + documented as of this encounter Visit Diagnoses + + | Diagnosis | + + | Coronary artery disease, angina presence unspecified, unspecified vessel or lesion | | type, unspecified whether [place] or transplanted heart - Primary | + + | Post PTCA Postsurgical percutaneous transluminal coronary angioplasty status | + + documented in this encounter"
--- OUTSIDE RECORDS SUMMARY | ~2020-03-04 | XMS | Encounter Summary ---
Demographics + + + | Address | [address] | | | [place] [address] | + + + | Home Phone [...] [place], [place] | | | | | [address] | | + + + + + Care Team Providers + +------+ + | Care Solar Photovoltaic Electrician Name | Role | Phone | + +------+ + PCP | Unavailable | + +------+ + Encounter Details +--------+ + + + + | Date | Type | Department | Care Team | Description | +--------+ + + + + | 07/09/ | Emergency | [facility] | Monse Mac MD | Acute anterior wall | | 2017 | | [facility] EM[facility]Y | [address] | MD ([facility]) | | | | CENTER [address] | [place], [place] | | | | | [place], [place] | [address] | | | | | [address] | | | | | | [phone] | | | +--------+ + + + [...] Anton Mac MD ADMITTING DIAGNOSIS: Acute Anterior MD DISPOSITION: Transfer to [facility] for CABG BRIEF HOSPITAL COURSE: Briefly, Mr. [...] s tented and he was transported to [facility] via air ambulance., Electronically signed by Monse Mac MD at 7 10:33 AM PDTdocumented in this encounter Progress Notes Van Rodriges RN - 03/15/2017 8:33 AM PDTSee research laboratory manager print out. For vitals etc..Alia ctronically signed [...] pain and went to the ER in [facility] where the EKG showed ant MD and he was transported here via air [...] is listed above. OBJECTIVE: PHYSICAL EXAM HR=55; VI=900/80 HEENT--unremarkable; Obese; ERNIE. CV--RRR with distant HS; No mgr Lungs---clear Abd---obese Ext--no edema. ECG: NSR; Acute Anterior MD. LAB RESULTS: Pending. ASSESSMENT: AMI PLAN: Emergent [...] PROVIDER: No primary care provider on file. BUNDLE SORTER: Dr. Monse Mac MD PRE-PROCEDURE DIAGNOSIS: Acute Anterior MD POST-PROCEDURE DIAGNOSIS: Same PROCEDURES PERFORMED: 1. Coronary [...] was performed in multiple views using 5 Singaporean TIG and JR diagnostic catheters. After review [...] not able to transfer the patient expediently ([facility] did not have beds; [place] surgeons were busy with their own complications; finally [facility] accepted the patient but then transport became [...] ostial LCx. He was then transported to [facility] very serious condition on multiple drips and [...] not able to transfer the patient expediently ([facility] did not have beds; [facility] red Heart surgeons were busy with their own complications; finally [facility] accepted the patient but then transport became [...] ostial LCx. He was then transported to [facility] in very serious condition on multiple drips and IAPB---discussion with the family was car ried to regarding his poor medical condition and the fact that he would probably not going t o survive this hospitalization. Monse Mac MD [facility] DATE/TIME: 03/15/2017 10:05 03/15/2017 10:05 Rno Aguillon MD - 03/15/2017 9:14 AM PDTAssociated [...] in appropriate position Patient was in the research laboratory manager when I was called for emergency intubation on the patient. Teresita gonzalez was found to have left main disease and initially had been coded in the research laboratory manager and th ey had shocked him once. [...] Care was turned over back to the volcanologist that is managing this patient 's case. Critical care time for this patient was approximately 45 minutes excluding intubationElectr onically signed by Ron Hawkins MD at 03/15/2017 9:23 AM PDTdocumented in th is encounter Miscellaneous Notes Goals of Richar - Van Rodriges RN - 03/15/2017 8:31 AM PDTLifeflight team received re port from clinical laboratory aides teacher team. 8:3 2 AM PDTGoals Van Nelson RN - 03/15/2017 8:04 AM PDTUpdated , regard ing pt condition. Advised her to come to [facility] and if pt leaves for [place] prior to her ar rival I will divert her. oals Van Nelson RN - 03/15/2017 7:29 AM PDTSpoke again with life flight. Fixed wing coming from [place] 45min, and 38n min for helicopter crew. [...] [place] | | | | | | [address] | | | | | | | | +--------+ + + + + | 04/16/ | Office | Cardiology | Alin Anderson | | | 2019 | Visit | | MD [address] | | | | | | [address] | | | | | | [place] [address] | | | | | | [phone] | | | | | | | [...] [place] | | | | | | [address] | | | | | | | [...] | | | : | | | [id number] | | | [id number] | | | ATE OF | | [...] | | | 5 | | | Singaporean | | | TIG | | | [...] | + + | Acute anterior wall MD (HCC) Acute myocardial infarction of other anterior wall, | | episode of care unspecified | + + documented in this encounter
--- OUTSIDE RECORDS SUMMARY | ~2020-03-04 | XMS | Encounter Summary ---
Demographics + + + | Address | [address] | | | [place] [address] | + + + | Home Phone [...] [place], [place] | | | | | [address] | | + + + + + Care Team Providers + +------+ + | Care Soil Science Professor Name | Role | Phone [...] Provider Unknown | | | | | [place], [place] | [phone] | | | | | [address] | (Fax) | | | | | [phone] | | | +--------+ + + + [...] | | | | | | [address] | | | | | | [address] [place] | | | | | | [address] | | | | | | | | +--------+ + + + + | 04/16/ | Office | Cardiology | Alin Anderson | | | 2019 | Visit | | MD Cheryl Arreguin | | | | | | [address] | | | | | | [place] [address] | | | | | | [phone] | | | | | | | [...] [place] | | | | | | [address] | | | | | | | [...]
--- OUTSIDE RECORDS SUMMARY | ~2020-03-04 | XMS | Encounter Summary ---
Demographics + + + | Address | [address] | | | [place] [address] | + + + | Home Phone [...] [place], [place] | | | | | [address] | | + + + + + Care Team Providers + +------+ + | Care State Comptroller Name | Role | Phone | + [...] | | involving | [address] | [address] [place] | | | | | [place] | [place] | [place] | | | | | coronary | [address] | [address] | | | | | artery of | Phone: | Phone: | | | | | [place] heart | [phone] | [phone] | | | | | without | Fax: | Fax: | | | | | angina | [phone] | [phone] | | | | | pectoris | | | +--------+ + + + + + Encounter Details +--------+---------+ + + + | Date | Type | Department | Care Team | Description | +--------+---------+ + + + | 08/26/ | Office | [facility] | RahulyazshirazLindaangusleo, | Acute anterior wall | | 2018 | Visit | MED CTR CARD[facility]AC | MD [address] | [place] ([facility]) (Primary | | | | REHABILITATION [address] | [place], | Dx) | | | | [address] [place] | [place] [address] | | | | | [place] [address] | [phone] | | | | | [phone] | | | +--------+---------+ + + + [...] as of this encounter Progress Cheri Mchugh, HYDROBLASTER - 08/26/2018 10:00 AM HungFletcher Alex came into rehab stat ing he was not feeling well and that he was feeling some dizzy. He was hooked up to the card DossierView monitor and B/P was 60/44. Patient was [...] | | | | | [address] [facility] [place] | | | | | | [id number] | | | | | | | | +--------+ + + + + | 04/16/ | Office | Cardiology | Alin Anderson | | 2019 | Visit | | MD [address] | | | | | | [address] | | | | | | [place] [address] | | | | | | [phone] | | | | | | | | +--------+ + + + + | 04/16/ | Procedure | Cardiology | | | | 2019 | visit | | | | +--------+ + + + + | 04/25/ | Office | Cardiology | Rocio Pearl, | | | 2019 | Visit | | MD Cheryl [address]RENA | | | | | | [place], [place] | | | | | | [address] | | | | | | | | +--------+ + + + + documented as of this encounter Visit Diagnoses + + | Diagnosis | + + | Acute anterior wall CA (HCC) - Primary Acute myocardial infarction of other anterior | | wall, episode of care unspecified | + + documented in this encounter"
--- OUTSIDE RECORDS SUMMARY | ~2020-03-04 | XMS | Encounter Summary ---
Demographics + + + | Address | [address] | | | [place] [address] | + + + | Home Phone [...] [place], [place] | | | | | [address] | | + + + + + Care Team Providers + +------+ + | Care Pre Owned Sales Manager Name | Role | Phone | [...] + + | 04/06/ | Telephone | [facility] | Carolina Lindarisa, | Blood Pressure | | 2018 | | CARDIOLOGY [address] | [address] [place] | | | | | [place], | [place], | | | | | [place] [address] | [place] [address] | | | | | [phone] | [phone] | | | | | | | [...] | | | | [address] [place] | | | | | | [address] | | | | | | | | +--------+ + + + + | 04/16/ | Office | Cardiology | Alin Anderson | | | 2019 | Visit | | MD [address] | | | | | | [address] | | | | | | [place] [address] | | | | | | [phone] | | | | | | | [...] [place] | | | | | | [address] | | | | | | | | +--------+ + + + + documented as of this encounter Visit Diagnoses Not on filedocumented in this encounter"
--- OUTSIDE RECORDS SUMMARY | ~2020-03-04 | XMS | Encounter Summary ---
Demographics + + + | Address | [address] | | | [place] [address] | + + + | Home Phone [...] [place], [place] | | | | | [address] | | + + + + + Care Team Providers + +------+ + | Care Computer Video Game Designer Name | Role | Phone | [...] Echo | | | | | | [place], | [address] | | | | | Biventricula | [place], BULLDOZER PRESS OPERATOR | [place], | | | | | r ICD | [address] | [place] | | | | | (implantable | [place] | [address] | | | | | | [place], | Phone: | | | | | cardioverter | [place] | [phone] | | | | | -defibrillat | [address] | Fax: | | | | | or) in place | Phone: | [phone] | | | | | Ischemic | [phone] | | | | | | cardiomyopat | Fax: | | | | | | hy | [phone] | | | | | | Procedures [...] + + | 11/11/ | Office | [facility] | Jenny, | INSTITUTIONAL COOK-D (AICD) | | 2017 | Visit | CARDIOLOGY [address] | ADARSH Santo [address] | [employer] 10/16/17 | | | | [place], | [place], | [facility] | | | | [place] [address] | [place] [address] | (Primary Dx); | | | | [phone] | [phone] | Tachycardia; | | | | | | Ischemic | | | | | | cardiomyopathy; | | | | | | Coronary artery | | | | | | disease involving | | | | | | [place] coronary | | | | | | artery of [place] | | | | | | heart without angina | | | | | | pectoris; Acute | | | | | | anterior wall [place] | | | | | | ([facility]); H/O atrial | | | | [...] Interrogation CANCELED: Device Interrogation - Remote 2. INSTITUTIONAL COOK-D (AICD) [employer] 10/16/17 [facility] Z95.810 V45.02 Device Interrogation CANCELED: Device Interrogation [...] thrombus, recent status post stents to , INSTITUTIONAL COOK-D placement in [facility] on 10/17/2017. He was last seen 10/19/17 [...] anterior wall [place] CAD (coronary artery disease) Ischemic cardiomyopathy Pulmonary edema INSTITUTIONAL COOK-D (AICD) [employer] 10/16/17 [facility] [place] Implantable defibrillator reprogramming/check H/O atrial flutter Tachycardia CURRENT MEDICATIONS Current Outpatient Prescriptions Medication Sig Dispense Refill aspirin 81 MG tablet Take 81 mg by mouth Daily. atorvaSTATin (LIPITOR) 80 MG tablet Take 1 tablet by mouth nightly. 30 tablet 5 Cholecalciferol (VITAMIN D-3) 83188 units CAPS Take by mouth Once a [...] kg (212 lb 15.4 oz) | B [place] 30.56 kg/m Physical Exam Constitutional: He is [...] RESULTS reviewed during visit today primarily from [facility]: LIPID Lab Results Component Value Date [...] PLTEX 226 10/17/2017 I reviewed records from [facility] for office visit on 10/2017 whic h [...] shock requiring IABP, pressor (dopamine, norepin ephrine). [facility] and [facility] were on divert. Patient wasn't transferred to [facility]. B. Echocardiogram 03/17/2017 shows LV ejection fraction is severely decreased, vi sually estimated left ventricular ejection fraction is 20 - 25%, left ventricular systolic t hickening is segmentally abnormal, mildly reduced RV systolic function. Normal RV size, no s ignificant valvular abnormalities seen, compared to the most recent exam dated, 03/15/2017, there is no significant changes C. At [facility], patient had another STEMI code 03/29, [...] to follow up closely with a local wire straightening machine operator in [place]. He wias dis chargeed with a LifeVest [...] we will transfer the patie nt to [facility] for consideration of urgent coronary revascularization. [...] is upgraded to a class I-II of [employer] functional class. Heart fa ilure [...] myocardium in these regions. C. S/P [employer] INSTITUTIONAL COOK-D 10-16-17 Dr Darby, [facility]. Ice interrogation today shows one episode [...] a week ago. This was after his [place] and a t the same time patient was having ventricular tachycardia. He was initiated on amiodarone and then discontinued before discharge. The plan is to monitor through his device and see i f this is a problem that needs to be addressed. Patient is not on anticoagulation he was le ft that way from [facility]. Patient has had several GI bleeds [...] this chart may have been created with [employer] voice recognition software. Occasi onal wrong-word or [...] LIGHT | | | | | | [place] [address] | | | | | | [phone] | | | | | | | | +--------+ + + + + | 04/16/ | Procedure | Cardiology | | | | 2019 | visit | | | | +--------+ + + + + | 04/25/ | Office | Cardiology | Rocio Pearl, | | | 2019 | Visit | | MD Cheryl URENA | | | | | | [place] | | | | | | [address] | | | | | | | | +--------+ + + + + + + +--------+ + + | Name | Type | Priori | Associated Diagnoses | Order Schedule | | | | ty | | | + + +--------+ + + | ECG 12 lead | ECG | Routin | INSTITUTIONAL COOK-D (AICD) | Ordered: 11/11/2017 | | | | e | [employer] 10/16/17 | | | | | | [facility] [place] | | | | | | Tachycardia | | | | | | Ischemic | | | | | | cardiomyopathy | | | | | | Coronary artery | | | | | | disease involving | | | | | | [place] coronary | | | | | | artery of [place] | | | | | | heart without angina | | | | | | pectoris Acute | | | | | | anterior wall [place] | | | | | | ([facility]) H/O atrial | | | | | | flutter | | + + +--------+ + + | ECHO Complete | Echocardiog | Routin | INSTITUTIONAL COOK-D (AICD) | Expected: | | | abby | e | [employer] 10/16/17 | 11/11/2017, Expires: | | | | | [facility] | 11/11/2018 | | | | | Ischemic | | | | | | cardiomyopathy | | + + +--------+ + + documented as of this encounter Visit Diagnoses + + | Diagnosis | + + | INSTITUTIONAL COOK-D (AICD) [employer] 10/16/17 [facility] Darby [place]oe [place] | + + | Tachycardia Tachycardia, unspecified | + + | Ischemic cardiomyopathy Other specified forms of chronic ischemic heart disease | + + | Coronary artery disease involving [place] coronary artery of [place] heart without | | angina pectoris | + + | Acute anterior wall [place] (HCC) Acute myocardial infarction of other anterior wall, | | episode of care unspecified | + + | H/O atrial flutter Personal history of other diseases of circulatory system | + + | Implantable defibrillator reprogramming/check Fitting and adjustment of automatic | | implantable cardiac defibrillator | + + documented in this encounter
--- OUTSIDE RECORDS SUMMARY | ~2020-03-04 | XMS | Encounter Summary ---
Demographics + + + | Address | [address] | | | [place] [address] | + + + | Home Phone [...] [place] | | | | | [address] | | + + + + + Care Team Providers + +------+ + | Care Back Up Worker Name | Role | Phone | [...] | of both | [place], | [address] Phone: | | | | | legs | [place] [address] | [phone] | | | | | Weakness | Phone: | Fax: | | | | | Procedures | [phone] | [phone] | | | | | SD MOTOR | Fax: | | | | | | &/SENS 3-4 | [phone] | | | | | | NRV CNDJ | | | | | | | PRECONF | | | | | | | ELTRODE LIMB | | | | | | | SD MOTOR | | | | | | | &/SENS 5-6 | | | | | | | NRV CNDJ | | | | | | | PRECONF | | | | | | | ELTRODE LIMB | | | | | | | SD EMG, | | | | | | | NEEDLE, TWO | | | | | | | [place] | | | | | | [...] | [address] | | | | | [address] | | | | | | [phone] | | | +--------+ + + + [...] Esteves MD - 02/24/2018 9:00 AM PDT [facility] Mus[facility] Sports [facility] Spine, Physiatry [address] [address] Test Date: 02/24/2018 Patient Name: Bob Will : 1955 Physician: Prosper Esteves MD MR #: [id number] Sex: Male Referring Physician: Chato Matson MD [...] hesitate to call. Prosper Esteves MD Fellow, [employer]. documented [...] [place] | | | | | | [address] | | | | | | | | +--------+ + + + + | 04/16/ | Office | Cardiology | Alin Anderson | | | 2019 | Visit | | MD Cheryl Arreguin | | | | | | [place] | | | | | | [place] [address] | | | | | | [phone] | | | | | | | [...] [place] | | | | | | [address] | | | | | | | | +--------+ + + + + documented as of this encounter Visit Diagnoses + + | Diagnosis | + + | Left leg weakness Other musculoskeletal symptoms referable to limbs | + + | Paresthesias/numbness Disturbance of skin sensation | + + documented in this encounter
--- OUTSIDE RECORDS SUMMARY | ~2020-03-04 | XMS | Encounter Summary ---
Demographics + + + | Address | [address] | | | [place] [address] | + + + | Home Phone [...] + | [place] Mcke[place] | E[place] | [place] | | | | | [address] | | + + + + + Care Team Providers + +------+ + | Care Np Name | Role | Phone | + +------+ + | Amy Olivares MD | PCP | | + +------+ + Reason for Visit + + + | Reason | Comments | + + + | Consultation | | + + + | Chronic Kidney | | | Disease, Stage III | | + + + Evaluate & [...] | | | | (moderate) | [place] [address] | [place] [address] | | | | | (HCC) | Phone: | Phone: | | | | | Procedures | [phone] | [phone] | | | | | [place] OFFICE | Fax: | Fax: | | | | | OUTPATIENT | [phone] | [phone] | | | | | VISIT 25 [...] Description | +--------+---------+ + + + | 03/08/ | Office | [facility] [place] | [place], | Chronic kidney | | 2019 | Visit | NEPHROLOGY [address] | [address] | disease, stage III | | | | [address] | [address] | (moderate) (HCC) | | | | [place], [place] | [address] [place], [place] | (Primary Dx); | | | | [address] | [address] | Hypertension, renal | | | | [phone] | | disease, stage 1-4 | | | | | | or unspecified | | | | | | chronic kidney | | | | | | disease; Ischemic | | | | | | cardiomyopathy; | | | | | | Secondary | | | | | | hyperparathyroidism | | | | | | (HCC); Anemia in | | | | | | stage 3 chronic | | | | | | kidney disease (HCC) | +--------+---------+ + + + Social [...] + + + | Blood Pressure | 100/58 | 03/08/2019 9:52 AM | | | | | PDT | | + + + + + | Pulse | 71 | 03/08/2019 9:52 AM | | | | | PDT | | + + + + + | Temperature | 36.7 C (98 F) | 03/08/2019 9:52 AM | | | | | PDT | | + + + + + | Respiratory Rate | 16 | 03/08/2019 9:52 AM | | | | | PDT | | + + + + + | Oxygen Saturation | 99% | 03/08/2019 9:52 AM | | | | | PDT | | + + + + + | Inhaled Oxygen | - | - | | | Concentration | | | | + + + + + | Weight | 87.6 kg (193 lb 2 | 03/08/2019 9:52 AM | | | | oz) | PDT | | + + + + + | Height | 175.3 cm (5' 9") | 03/08/2019 9:52 AM | | | | | PDT | | + + + + + | Body Mass Index | 28.52 | 03/08/2019 9:52 AM | | | | | PDT | | + + + + + documented in this encounter Patient Instructions Patient Instructions Lacho Mcghee ARNP - 03/08/2019 9:45 AM PDTPlease monitor b lood pressure at home. Avoid red meat and eat some meatless meals. Please avoid taking NSAIDs. These are some commonly used NSAIDs: ibuprofen (Motrin,Advil), naproxen (Aleve, Naprosyn), celecoxib (Celebrex), indomethacin (Indocin), meloxicam (Mobic). Continue fluid restriction as directed by cardiology. documented in this encounter Progress Notes Lacho Mcghee ARNP - 03/08/2019 9:45 AM PDTFormatting of this note might be diff erent from the original. Nephrology Consult - New Visit Visit date: 03/08/2019 Primary care provider: mAy Olivares MD HPI: Ron Mckeon is a 63 y.o. male referred by Aym Olivares for evaluation of chronic k idney disease. -hypertension diagnosed approximately 1998 -coronary artery disease post recent anterior wall SC, post PTCA and stents of the left romero n, LAD and LCx on 03/15/17 -ischemic cardiomyopathy, [facility]-D placement in [facility] on 10/17/2017; LVEF 30-35% -"borderline" type 2 diabetes mellitus -serum creatinine 1.5 mg/dl 2017; 1.5-2 mg/dl 2017; 2.1-2.7 mg/dl 2018; currently 2.1 mg/dl Ashok is here with his Debbie. He reports challenges to his health in the past year due to his heart. He has been inpatient a number of times due to exacerbation of CHF, most recently 03/03/19-03/04/19 at [facility] in [place], [place], requiring IV diuretics. He reports that his edema has improved since that hospitalization but is still more than his baseline. He an d his have an outdated medication list and do not have medications memorized, though th anitha seem to be good historians otherwise. They report multiple medication changes in the past few months, taken off entresto and now on low dose lisinopril. He also used to be on metola zone three times a week but about one month ago accidentally took it three days in a row, si nce then it has been discontinued completely. This may have been when the serum creatinine w as at 2.7 mg/dl 01/13/19, which is higher than his usual baseline. He is looking forward to seeing ADARSH Stevens cardiology in a couple weeks. Per Dr. Olivares's note 03/07/19 torsemide has been at 60 mg BID since hospitalization 03/03/19, patient reported being on 40 mg BID. They agreed to check at home to clarify that. Patient reports blood pressure is usually low 100s mmHg systolic; 98-124 is the usual systo lic range. He was recently given a medication for nausea at a walk-in clinic that caused his arms to go numb and twitch. He has no idea what the name of the medication was. RON MCKEON 1955 US KIDNEYS AND BLADDER 05/04/2018 11:05 AM HISTORY: Chronic kidney disease COMPARISON: None. TECHNIQUE: Transabdominal ultrasound of the kidneys and bladder, grayscale and color flow e valuation. FINDINGS: Evaluation of the lower poles of the kidneys slightly restricted by bowel gas. Th e right left kidneys measure 10.0 x 3.7 x 4.4 cm and 9.9 x 5.2 x 4.9 cm respectively. No sha dowing stone or hydronephrosis is demonstrated. The bladder is incompletely distended measuring 80 mL prevoid. Postvoid residual of 14 mL. Right ureteral jet was not visualized. Other Result Information Sebastian, Rad Results In - 05/04/2018 11:21 AM PDT RON MCKEON 1955 US KIDNEYS AND BLADDER 05/04/2018 11:05 AM HISTORY: Chronic kidney disease COMPARISON: None. TECHNIQUE: Transabdominal ultrasound of the kidneys and bladder, grayscale and color flow e valuation. FINDINGS: Evaluation of the lower poles of the kidneys slightly restricted by bowel gas. Th e right left kidneys measure 10.0 x 3.7 x 4.4 cm and 9.9 x 5.2 x 4.9 cm respectively. No sha dowing stone or hydronephrosis is demonstrated. The bladder is incompletely distended measuring 80 mL prevoid. Postvoid residual of 14 mL. Right ureteral jet was not visualized. IMPRESSION: 1. No shadowing renal stones or hydronephrosis. 2. Postvoid bladder residual of 14 mL. Review of Systems Constitutional: Positive for fatigue (chronic over past year). Negative for unexpected weig ht change. Eyes: Negative for visual disturbance. Respiratory: Positive for apnea (inconclusive sleep study) and shortness of breath (with ex certion, no worse then usual). Negative for cough and wheezing. Cardiovascular: Positive for leg swelling (BLE, worse over past week). Negative for chest p ain and palpitations. Gastrointestinal: Positive for nausea (past week). Negative for blood in stool, constipatio n, diarrhea and vomiting. Genitourinary: Negative for difficulty urinating, dysuria, enuresis, flank pain, frequency, hematuria and urgency. Musculoskeletal: Positive for arthralgias (arthritis). Negative for myalgias. Skin: Negative for rash. Allergic/Immunologic: Negative for immunocompromised state. Neurological: Positive for weakness (arms, muscle twitching x 1 week due to medication, res olved now) and headaches (daily). Negative for seizures. Hematological: Bruises/bleeds easily. Psychiatric/Behavioral: Positive for dysphoric mood (per ). The patient is not nervous/ anxious. Past Medical History: Diagnosis Date Acute anterior wall SC (HCC) 04/03/2017 Angiography and stent 03/15/2017 successful PCI with placement of 3.0X23 stent in the distal LM and ostial LAD reducing a 100% stenotic lesion to 0% residual stenosis, successful PCI w ith placement of 2.5X18 stent in the ostial LCx reducing a 90% stenotic lesion to 0% resdual stenosis. Acute renal failure superimposed on stage 3 chronic kidney disease ([facility]) 05/01/2018 CAD (coronary artery disease) 04/06/2017 Successful PCI with placement of 3.0X23 stent in the distal LM and ostial LAD reducing a 1 00% stenotic lesion to 0% residual stenosis, successful PCI with placement of 2.5X18 stent i n the ostial LCx reducing a 90% stenotic lesion to 0% residual stenosis on 03/15/2017 by Monse Ross MD. Cancer (HCC) CHF (congestive heart failure) ([facility]) COPD (chronic obstructive pulmonary disease) ([facility]) GERD (gastroesophageal reflux disease) Hyperlipidemia Hypertension LOUISA (obstructive sleep apnea) Post traumatic stress disorder 02/19/2012 Past Surgical History: Procedure Laterality Date ANGIOGRAM Bilateral 05/19/2018 Procedure: CV Vas LE Angio; Surgeon: Khurram Canas MD; Location: [facility] CV LAB ANGIOPLASTY Left 05/19/2018 Procedure: CV PTCA Only; Surgeon: Khurram Canas MD; Location: [facility] CV LAB CARDIAC CATHERIZATION N/A 10/03/2017 Procedure: CV Cor Angio; Surgeon: Delmer Dai MD; Location: [facility] CV LAB CARDIAC CATHERIZATION N/A 03/15/2017 Procedure: CV Cor Angio; Surgeon: Monse Ross MD; Location: [facility] CV LAB CARDIAC CATHERIZATION Left 05/19/2018 Procedure: CV RHC; Surgeon: Khurram Canas MD; Location: [facility] CV LAB CARDIAC CATHERIZATION Left 05/19/2018 Procedure: CV FFR/iFR; Surgeon: Khurram Canas MD; Location: [facility] CV LAB CARDIAC CATHERIZATION Left 05/19/2018 Procedure: CV IVUS/OCT; Surgeon: hKurram Canas MD; Location: [facility] CV LAB ELBOW SURGERY Left GALLBLADDER SURGERY LEFT VENTRICULAR ASSIST DEVICE Right 05/19/2018 Procedure: CV PERC MECH CIRC SUPPORT; Surgeon: Khurram Canas MD; Location: [facility] CV LAB NASAL SEPTUM SURGERY TONSILLECTOMY UPPER GASTROINTESTINAL ENDOSCOPY N/A 10/05/2017 Procedure: EGD; Surgeon: Terry Weir MD; Location: [facility] Social History Socioeconomic History Marital status: Spouse name: Not on file Number of children: Not on file Years of education: Not on file Highest education level: Not on file Social Needs Financial resource strain: Not on file Food insecurity - worry: Not on file Food insecurity - inability: Not on file Transportation needs - medical: Not on file Transportation needs - non-medical: Not on file Occupational History Not on file Tobacco Use Smoking status: Former Smoker Packs/day: 2.00 Years: 45.00 Pack years: 90.00 Types: Cigarettes Last attempt to quit: 03/08/2017 Years since quittin.0 Smokeless tobacco: Former User Substance and Sexual Activity Alcohol use: No Drug use: No Sexual activity: Not on file Other Topics Concern Not on file Social History Narrative Caffeine: 1 1/2 cups of coffee Exercise: walking 20 To 30 min Family History Problem Relation Age of Onset Cancer Mother rectal Heart attack Father Kidney disease Neg Hx No Known Allergies Outpatient Medications Marked as Taking for the 03/08/19 encounter (Office Visit) with ADARSH Mayes Medication [...] 9 0 tablet 3 Cholecalciferol (VITAMIN D-3) 78537 units CAPS Take by mouth Once a week. clopidogrel (PLAVIX) 75 mg tablet Take 1 tablet by mouth Daily. 30 tablet 11 ferrous sulfate 300 mg/5 mL syrup Take 300 mg by mouth Daily. gabapentin (NEURONTIN) 100 mg capsule Take 100 mg by mouth 2 times daily. HYDROcodone-acetaminophen (NORCO) 10-325 mg per tablet Take 1 tablet by mouth as needed . lisinopril (PRINIVIL,ZESTRIL) 2.5 MG tablet Take 2.5 mg by mouth Daily. Melatonin 10 MG CAPS Take 10 mg by mouth nightly. metoprolol succinate (TOPROL-XL) 25 mg 24 hr [...] 40 mg by mouth 2 times daily. *patient may be susan ing 60 mg BID. traMADol (ULTRAM) 50 mg tablet Take 150 mg by mouth Twice daily as needed. Objective: BP 100/58 | Pulse 71 | Temp 36.7 C (98 F) (Temporal) | Resp 16 | Ht 1.753 m (5' 9") | Wt 87.6 kg (193 lb 2 oz) | SpO2 99% | BMI 28.52 kg/m Physical Exam Constitutional: He is oriented to person, place, and time. He appears well-developed and we ll-nourished. No distress. HENT: Mouth/Throat: Oropharynx is clear and moist. Eyes: Pupils are equal, round, and reactive to light. Neck: Neck supple. No JVD present. No thyromegaly present. Cardiovascular: Normal rate, regular rhythm, S1 normal and S2 normal. Exam reveals no sheffield p and no friction rub. No murmur heard. Pulmonary/Chest: Effort normal and breath sounds normal. No respiratory distress. He has no wheezes. He has no rhonchi. He has no rales. Abdominal: Soft. Bowel sounds are normal. He exhibits no distension and no abdominal bruit. There is no tenderness. There is no CVA tenderness. Musculoskeletal: He exhibits edema (1+ pedal edema, trace edema ankles to knees). Neurological: He is alert and oriented to person, place, and time. Skin: Skin is warm. No rash noted. Psychiatric: He has a normal mood and affect. Cognition and memory are normal. Vitals reviewed. Reviewed labs with patient. Abstract on 03/08/2019 Component Date Value Ref Range Status Creatinine, External 03/08/2019 2.07 Final eGFR, External 03/08/2019 32 Final WBC, External 03/08/2019 7.6 Final HGB, External 03/08/2019 10.8 Final HCT, External 03/08/2019 34.4 Final PLT, External 03/08/2019 275 Final RBC, External 03/08/2019 3.98 Final MCV, External 03/08/2019 86 Final RDW, External 03/08/2019 17.3 Final Ferritin, External 03/08/2019 144.3 Final Iron Binding Capacity, External 03/08/2019 514 Final Iron Saturation, External 03/08/2019 6.5 Final Iron, External 03/08/2019 33.55 Final UA Blood, External 03/08/2019 negative Final UA Glucose, External 03/08/2019 normal Final UA Ketones, External 03/08/2019 negative Final UA Ph, External 03/08/2019 7 Final UA Proteins, External 03/08/2019 negative Final UA RBC, External 03/08/2019 2 Final UA Specific [place], External 03/08/2019 1.013 Final UA Leukocyte Esterase, External 03/08/2019 negative Final Vitamin D, 25-Hydroxy, External 03/08/2019 37 Final Sodium, External 03/08/2019 135 Final Potassium, External 03/08/2019 3.4 Final Chloride, External 03/08/2019 85 Final Carbon Dioxide, External 03/08/2019 38 Final Calcium, External 03/08/2019 9.0 Final Phosphorus, External 03/08/2019 3.9 Final Albumin, External 03/08/2019 3.7 Final Glucose, External 03/08/2019 129 Final BUN, External 03/08/2019 43 Final WBC UA 03/08/2019 2 /HPF Final Color 03/08/2019 Yellow Light Yellow, Yellow Final Clarity 03/08/2019 Clear Final Bacteria, UA 03/08/2019 1+ Final SQUAMOUS EPITHELIAL UA 03/08/2019 1 /HPF Final Nitrite, Urine 03/08/2019 Negative Negative Final Protein/Creatinine Ratio, External 03/08/2019 0.126 0.2 Final PTH Intact, External 03/08/2019 133.7 Final Abstract on 03/08/2019 Component Date Value Ref Range Status Creatinine, External 03/07/2019 2.3 Final eGFR, External 03/07/2019 29 Final B-Type Naturetic Peptide, External 03/07/2019 881 Final Sodium, External 03/07/2019 137 Final Potassium, External 03/07/2019 3.7 Final Chloride, External 03/07/2019 86 Final Carbon Dioxide, External 03/07/2019 39 Final Calcium, External 03/07/2019 8.9 Final Glucose, External 03/07/2019 137 Final BUN, External 03/07/2019 49 Final Assessment & Plan: 1. Chronic kidney disease, stage III (moderate) (HCC) Minimal proteinuria, no hematuria. K idneys without acute changes on ultrasound. Serum creatinine is variable, currently stable b ut higher overall than last year. CKD is progressing. Expect some variability due to adjustm ent of diuretic and exacerbations of CHF. No hyperkalemia; serum potassium is fine on supplement. CKD likely due to hypertensive nephrosclerosis though he is also at risk for cardiorenal sy ndrome if he continues to have exacerbations and worsening CHF. No evidence of glomeruloneph ritis. Discussed the challenge of balancing treatment for cardiac and renal conditions. Kidney dis ease will likely continue to worsen over time. Recommend avoiding prolonged hypotension, avoid nephrotoxins. Stay consistently hydrated wh ile sticking to the fluid restriction as requested by cardiology. Ok to continue JULIAN inhibitor therapy per cardiology. Proteinuria is minimal so JULIAN inhibito r therapy is not as much of a priority from a renal standpoint. Discussed lifestyle choices that support renal health. 2. Hypertension, renal disease, stage 1-4 or unspecified chronic kidney disease Blood pres sure is low normal, appears to be stable overall. Discussed goal blood pressure and recommen d following up with cardiology if blood pressure is consistently <100 mmhg systolic, especia lly if he is significantly lightheaded. He appears to be stable on current dose of diuretics. No change, though I would like to cla rify what dose he is on. 3. Ischemic cardiomyopathy Frequent exacerbations. Currently appears controlled. Follow up with cardiology. 4. Secondary hyperparathyroidism (HCC) PTH is mildly high, serum calcium and phosphorus ar e fine. Vitamin D is replete. Will monitor. 5. Anemia in stage 3 chronic kidney disease (HCC) Labs resulted after patient left office. Hb trending down but still >10. He is on iron supplement though iron stores are low. Will c gigik to see how long he has been on it. He may need an iron infusion for improved efficacy. Return in about 3 months (around 06/08/2019). Labs: Renal panel, CBC, iron panel with ferritin 60 minutes spent face to face with patient with greater than 50% of time in counseling, edu cation and coordination of care as noted above. Cc: Amy Dai MD [address] [place] [address] Hans[place] Alvarado, JERICHOP 1 2:31 PM PDTdocumented in this encounter Plan of Treatment +--------+ + + + + | Date | Type | Specialty | Care Team | Description | +--------+ + + + + | 03/12/ | Office | Nephrology | Litzy, | | | 2019 | Visit | | [address] | | | | | | [facility] | | | | | | [...] | | | | | [place] [address] | | | | | | [phone] | | | | | | | [...] [place] | | | | | | [address] | | | | | | | | +--------+ + + + + documented as of this encounter Procedures + +--------+ + + + | Procedure Name | Priori | Date/Time | Associated Diagnosis | Comments | | | ty | | | | + +--------+ + + + | LABS - EXTERNAL SCAN | | 03/08/2019 | | Results for this | | | | 12:00 AM | | procedure are in the | | | | PDT | | results section. | + +--------+ + + + documented in this encounter Results LABS - EXTERNAL SCAN (03/08/2019 12:00 AM PDT) + + + | [...] Stage III (moderate) | + + | Hypertension, renal disease, stage 1-4 or unspecified chronic kidney disease | + + | Ischemic cardiomyopathy Other specified forms of chronic ischemic heart disease | + + | Secondary hyperparathyroidism (HCC) Secondary hyperparathyroidism (of renal origin) | + + | Anemia in stage 3 chronic kidney disease (HCC) | + + documented in this encounter
--- OUTSIDE RECORDS SUMMARY | ~2020-03-04 | XMS | Encounter Summary ---
Demographics + + + | Address | [address] | | | [place] [address] | + + + | Home Phone [...] [place] | | | | | [address] | | + + + + + Care Team Providers + +------+ + | Care Public Health Outreach Worker Name | Role | Phone | [...] [address] | | | | | [place], [place] | [address] [place], [place] | | | | | [address] | [address] | | | | | [phone] | | | +--------+ + + + [...] | | | | [address] [facility] | | | | | | [address] [place] | | | | | | [address] | | | | | | | | +--------+ + + + + | 04/16/ | Office | Cardiology | Alin Anderson | | | 2019 | Visit | | MD Cheryl Arreguin | | | | | | [address] | | | | | | [place] [address] | | | | | | [phone] | | | | | | | [...] [place] | | | | | | [address] | | | | | | | [...]
--- OUTSIDE RECORDS SUMMARY | ~2020-03-04 | XMS | Encounter Summary ---
Demographics + + + | Address | [address] | | | [place] [address] | + + + | Home Phone [...] [place], [place] | | | | | [address] | | + + + + + Care Team Providers + +------+ + | Care Plant Assigner Name | Role | Phone | + [...] [address] | | | | | [place], | [place], | | | | | [place] [address] | [place] [address] | | | | | [phone] | [phone] | | | | | | | [...] | | | | [address] [place] | | | | | | [id number] | | | | | | | | +--------+ + + + + | 04/16/ | Office | Cardiology | Alin Anderson | | | 2019 | Visit | | MD [address] | | | | | | [address] | | | | | | [place] [address] | | | | | | [phone] | | | | | | | [...] [place] | | | | | | [address] | | | | | | | | +--------+ + + + + documented as of this encounter Visit Diagnoses Not on filedocumented in this encounter"
--- OUTSIDE RECORDS SUMMARY | ~2020-03-04 | XMS | Encounter Summary ---
Demographics + + + | Address | [address] | | | [place] [address] | + + + | Home Phone [...] [place] | | | | | [address] | | + + + + + Care Team Providers + +------+ + | Care Talent Associate Name | Role | Phone | + +------+ + | Amy Olivares MD | PCP | | + +------+ + Encounter Details +--------+ + + + + | Date | Type | Department | Care Team | Description | +--------+ + + + + | 07/17/ | Abstract | [facility] | Jenny, | | | 2019 | | CARDIOLOGY [address] | [address]SH [address] | | | | | [place], | [place], | | | | | [place] [address] | [place] [address] | | | | | [phone] | | | | | | | [...] | | | | | [address] [facility] | | | | | | [address] [place] | | | | | | [address] | | | | | | | | +--------+ + + + + | 04/16/ | Office | Cardiology | Alin Anderson | | | 2019 | Visit | | MD [address] | | | | | | [address] | | | | | | [place] [address] | | | | | | [phone] | | | | | | | [...] [place] | | | | | | [address] | | | | | | | [...]
--- OUTSIDE RECORDS SUMMARY | ~2020-03-04 | XMS | Encounter Summary ---
Demographics + + + | Address | [address] | | | [place] [address] | + + + | Home Phone [...] [place] | | | | | [address] | | + + + + + Care Team Providers + +------+ + | Care Microfilm Operator Name | Role | Phone | [...] + | 06/06/ | Implant | [facility] | Randy Figueroa, | Implantable | | 2017 | Monitor | CARDIOLOGY [address] | [address] [facility] | defibrillator | | | | [place], | [place], | reprogramming/check | | | | [place] [address] | [place] [address] | (Primary Dx); CLINIC SPECIALIST-D | | | | [phone] | [phone] | (AICD) [employer] | | | | | | 10/16/17 [facility] Wilner; [...] Paceart documentation and remote PDF scanned into [employer] for remote interrogation re sults. Data collected [...] | | | | | [address] [facility] | | | | | | [address] [place] | | | | | | [address] | | | | | | | | +--------+ + + + + | 04/16/ | Office | Cardiology | Alin Anderson | | | 2019 | Visit | | MD Cheryl Arreguin | | | | | | [address] | | | | | | [place] [address] | | | | | | [phone] | | | | | | | [...] [place] | | | | | | [address] | | | | | | | [...] results section. | | | | | CLINIC SPECIALIST-D (AICD) | | | | | [...] remote PDF scanned into | | | [facility] for remote interrogation results. Data [...] implantable cardiac defibrillator | + + | CLINIC SPECIALIST-D (AICD) [employer] 10/16/17 EULOGIO Darby | + + | Congestive heart failure, unspecified HF chronicity, unspecified heart failure type | | (HCC) | + + | Ischemic cardiomyopathy Other specified forms of chronic ischemic heart disease | + + documented in this encounter"
--- OUTSIDE RECORDS SUMMARY | ~2020-03-04 | XMS | Encounter Summary ---
Demographics + + + | Address | [address] | | | [place] [address] | + + + | Home Phone [...] [place], [place] | | | | | [address] | | + + + + + Care Team Providers + +------+ + | Care Marketing Strategist Name | Role | Phone | + +------+ + | Chato Matson MD | PCP | | + +------+ + Reason for Visit +--------+--------+ + | Reason | Onset | Comments | | | Date | | +--------+--------+ + | Other | 07/07/ | | | | 2017 | | +--------+--------+ + Encounter Details +--------+ + + + + | Date | Type | Department | Care Team | Description | +--------+ + + + + | 07/07/ | Telephone | [facility] | Jenny, | Other | | 2017 | | CARDIOLOGY [address] | ADARSH [address] | | | | | [place], | [place], | | | | | [place] [address] | [place] [address] | | | | | [phone] | [phone] | | | | | | | [...] Telephone Encounter - Hansa Alvarado ARNP - 07/08/2018 2:31 PM annie Craven Electronically signed by: ADARSH Stevens 07/08/2018 14:31 elephone Kamari Sanchez RN - 07/07/2018 4:28 PM PDTPatient wanted to let you know he did receive both in home and portable oxygen. Also he just picked up his Metoprolol 50mg today. documented in thi s encounter Plan of [...] | | | | | [address] [facility] [place] [place] | | | | | | [address] | | | | | | | | +--------+ + + + + | 04/16/ | Office | Cardiology | Alin Anderson | | 2019 | Visit | | MD [address] | | | | | | [address] | | | | | | [place] [address] | | | | | | [phone] | | | | | | | [...] [place] | | | | | | [address] | | | | | | | | +--------+ + + + + documented as of this encounter Visit Diagnoses Not on filedocumented in this encounter"
--- OUTSIDE RECORDS SUMMARY | ~2020-03-04 | XMS | Encounter Summary ---
Demographics + + + | Address | [address] | | | [place] [address] | + + + | Home Phone [...] [place] | | | | | [address] | | + + + + + Care Team Providers + +------+ + | Care Llama Farmer Name | Role | Phone | [...] | (severe) (HCC) | | | | [place], [place] | [place] [address] | (Primary Dx); Anemia | | | | [address] | [phone] | in chronic kidney | | | | [phone] | | disease, unspecified | | | [...] [place] | | | | | | [address] | | | | | | | | +--------+ + + + + | 04/16/ | Office | Cardiology | Alin Anderson | | | 2019 | Visit | | MD [address] | | | | | | [address] | | | | | | [place] [address] | | | | | | [phone] | | | | | | | | +--------+ + + + + | 04/16/ | Procedure | Cardiology | | | 2019 | visit | | | | +--------+ + + + + | 04/25/ | Office | Cardiology | Rocio Pearl, | | | 2019 | Visit | | [address] | | | | | | [place] | | | | | | [address] | | | | | | | [...] 02/15/2020 | | | | | (severe) ([facility]) | until 02/14/2021 | | | | [...] 02/15/2020 | | | | | (severe) ([facility]) | until 02/14/2021 | + +------+--------+ + + | Protein/Creatinine | Lab | Routin | Chronic kidney | 1 Occurrences | | Ratio, Urine | | e | disease, stage IV | starting 02/15/2020 | | | | | (severe) ([facility]) | until 02/14/2021 | + +------+--------+ + + documented as of this encounter Visit Diagnoses + + | Diagnosis | + + | Chronic kidney disease, stage IV (severe) ([facility]) - Primary Chronic kidney disease, | | Stage IV (severe) | + + | Anemia in chronic kidney disease, unspecified CKD stage | + + documented in this encounter"
--- OUTSIDE RECORDS SUMMARY | ~2020-03-04 | XMS | Encounter Summary ---
Demographics + + + | Address | [address] | | | [place] [address] | + + + | Home Phone [...] [place], [place] | | | | | [address] | | + + + + + Care Team Providers + +------+ + | Care Forestry Instructor Name | Role | Phone | [...] | (severe) (HCC) | | | | [place], [place] | [address] [place], [place] | (Primary Dx); Anemia | | | | [address] | [address] | in chronic kidney | | | | [phone] | | disease, unspecified | | | [...] PDTLabs for upcoming nephrology appointment sent to: [facility] Everywhere 05/04/18 Charleyectronically signed by Sharon Saldana [...] [place] | | | | | | [address] | | | | | | | | +--------+ + + + + | 04/16/ | Office | Cardiology | Alin Anderson | | | 2019 | Visit | | MD [address] | | | | | | [address] | | | | | | [place] [address] | | | | | | [phone] | | | | | | | | +--------+ + + + + | 04/16/ | Procedure | Cardiology | | | | 2019 | visit | | | | +--------+ + + + + | 04/25/ | Office | Cardiology | Rocio Pearl, | | | 2019 | Visit | | MD Cheryl URENA | | | | | | [facility] [place] | | | | | | [address] | | | | | | | [...]
--- OUTSIDE RECORDS SUMMARY | ~2020-03-04 | XMS | Encounter Summary ---
Demographics + + + | Address | [address] | | | [place] [address] | + + + | Home Phone [...] [place], [place] | | | | | [address] | | + + + + + Care Team Providers + +------+ + | Care Residential Builder Name | Role | Phone | [...] | | involving | [address] | [place] | | | | | chilkoot | [place] [address] | [place] | | | | | coronary | [address] | [address] | | | | | artery of | Phone: | Phone: | | | | | chilkoot heart | [phone] | [phone] | | | | | without | Fax: | Fax: | | | | | angina | [phone] | [phone] | | | | | pectoris | | | +--------+ + + + + + Encounter Details +--------+---------+ + + + | Date | Type | Department | Care Team | Description | +--------+---------+ + + + | 09/14/ | Office | [facility] | Carolina Lindarisa, | Coronary artery | | 2019 | Visit | MED CTR CARDIAC | MD [address] | disease, angina | | | | REHABILITATION [address] | [place], | presence | | | | [address] [place] | [place] [address] | unspecified, | | | | [place] [address] | [phone] | unspecified vessel | | | | [phone] | | or lesion type, | | | | | | unspecified whether | | | | | | ch[place] or | | | | | | [...] Gael Ortega - 09/14/2018 10:00 AM PST [facility] CARDIAC REHABILITATION [address] [place] [address] Cardiac Rehab Date: 09/14/2018 Patient Information Patient Name: Bob Will Date of : 1955 Age: 62 y.o. Encounter Diagnoses Code Name Primary? I25.10 Coronary artery disease, angina presence unspecified, unspecified vessel or lesi on type, unspecified whether [place] or transplanted heart Yes Z98.61 Post PTCA [...] [place] | | | | | | [address] | | | | | | | | +--------+ + + + + | 04/16/ | Office | Cardiology | Alin Anderson | | | 2019 | Visit | | MD Cheryl Arreguin | | | | | | [address] | | | | | | [place] [address] | | | | | | [phone] | | | | | | | [...] [place] | | | | | | [address] | | | | | | | | +--------+ + + + + documented as of this encounter Visit Diagnoses + + | Diagnosis | + + | Coronary artery disease, angina presence unspecified, unspecified vessel or lesion | | type, unspecified whether ch[place] or transplanted heart - Primary | + + | Post PTCA Postsurgical percutaneous transluminal coronary angioplasty status | + + documented in this encounter"
--- OUTSIDE RECORDS SUMMARY | ~2020-03-04 | XMS | Encounter Summary ---
Demographics + + + | Address | [address] | | | [place] [address] | + + + | Home Phone [...] [place] | | | | | [address] | | + + + + + Care Team Providers + +------+ + | Care Contact Center Director Name | Role | Phone | [...] | | | heart | [place], | [place] | | | | | failure | [place] [address] | [address] [address] | | | | | (HCC) | Phone: | [address] | | | | | I50.22 | [phone] | Phone: | | | | | Procedures | Fax: | [phone] | | | | | Cardiac | [phone] | Fax: | | | | | Rehab | | [phone] | +--------+--------+ + + + + Encounter Details +--------+---------+ + + + | Date | Type | Department | Care Team | Description | +--------+---------+ + + + | 07/05/ | Office | [facility] | Amy Olivares V, | Chronic systolic CHF | | 2019 | Visit | MED CTR CARDIAC | MD [address] | (congestive heart | | | | REHABILITATION [address] | [address] [place], [place] | failure) ([facility]) | | | | [address] | [address] | | | | | [place] [address] | | | | | | [phone] | | | +--------+---------+ + + + [...] of this encounter Progress Gael Ortega - 07/05/2019 12:00 PM PDT [facility] CARDIAC REHABILITATION [address] [place] [address] Cardiac Rehab Date: 07/05/2019 Patient Information Patient Name: Bob Will Date of : 1955 Age: 63 y.o. Encounter Diagnoses Code Name Primary? I50.22 Chronic systolic CHF (congestive heart failure) ([facility]) Number of Visits Approved: 34 kx Taken Medications Today? Yes Any Changes in Medications? No Any Problems to Report? No No complaints with exertion. Patient drives from a distance so informs us that next week wi ll be his last week. Ventricular paced rhythm without ectopy. Pre O2: 99%, [place], SBP prior to exercise 104 /54; during exercise 110/58. Compliant with medications and therapeutic lifestyle changes. Continue monitored exercise. Any abnormal vital signs or rhythm strips will be reported in progress note. Electronically signed by: Gael Woo, 07/05/2019 10:36 Patient Name: Bob Will/: 1955/ ly signed by Gael Woo at 07/05/2019 1:24 PM PDTdocumented in this encounter Plan of [...] | | | | | [place] [address] | | | | | | [phone] | | | | | | | [...] [place] | | | | | | [address] | | | | | | | | +--------+ + + + + documented as of this encounter Visit Diagnoses + + | Diagnosis | + + | Chronic systolic CHF (congestive heart failure) (HCC) | + + documented in this encounter"
--- OUTSIDE RECORDS SUMMARY | ~2020-03-04 | XMS | Encounter Summary ---
Demographics + + + | Address | [address] | | | [place] [address] | + + + | Home Phone [...] [place] | | | | | [address] | | + + + + + Care Team Providers + +------+ + | Care Senior Scrum Master Name | Role | Phone | + [...] + + | 06/11/ | Telephone | [facility] | Jenny, | Referral (Follow up) | | 2017 | | CARDIOLOGY [address] | ADARSH Santo [address] | ([place]) | | | | [place], | [place], | | | | | [place] [address] | [place] [address] | | | | | [phone] | [phone] | | | | | | | [...] seen on 06/15 when he is in [place] for Advanced Heart Failure visit. ADARSH Melendez [...] [place] | | | | | | [address] | | | | | | | | +--------+ + + + + | 04/16/ | Office | Cardiology | Alin Anderson | | | 2019 | Visit | | MD Cheryl Arreguin | | | | | | [address] | | | | | | [place] [address] | | | | | | [phone] | | | | | | | [...] [place] | | | | | | [address] | | | | | | | | +--------+ + + + + documented as of this encounter Visit Diagnoses Not on filedocumented in this encounter"
--- OUTSIDE RECORDS SUMMARY | ~2020-03-04 | XMS | Encounter Summary ---
Demographics + + + | Address | [address] | | | [place] [address] | + + + | Home Phone [...] [place] | | | | | [address] | | + + + + + Care Team Providers + +------+ + | Care Exceptional Student Education Aide Name | Role | Phone | [...] | Coronary | Jenny, | [address] | | | | | artery | [place]ER[place] [address]anto[address] | [place], | | | | | disease | [address] | [place] | | | | | involving | [place] | [address] | | | | | [place] | [place], | Phone: | | | | | coronary | [place] | [phone] | | | | | artery of | [address] | Fax: | | | | | [place] heart | Phone: | [phone] | | | | | without | [phone] | | | | | | angina | Fax: | | | | | | pectoris | [phone] | | | | | | Acute | | | | | | | anterior | | | | | | | wall [place] | | | | | | | ([facility]) | | | | | [...] | | | | | Coronary | [place], | [address] | | | | | artery | [place], AGENT SPA DESK | [place], | | | | | disease | [address] | [place] | | | | | involving | [place] | [address] | | | | | [place] | [place], | Phone: | | | | | coronary | [place] | [phone] | | | | | artery of | [address] | Fax: | | | | | [place] heart | Phone: | [phone] | | | | | without | [phone] | | | | | | angina | Fax: | | | | | | pectoris | [phone] | | | | | | Acute | | | | | | | anterior | | | | | | | wall [place] | | | | | | | [...] + + | 04/18/ | Hospital | [facility] | Jenny, | Coronary artery | | 2019 | Encounter | MED CTR ECHO [address] | [place], AGENT SPA DESK [address] | disease involving | | | | [place] | [place], | [place] coronary | | | | [place] [address] | [place] [address] | artery of [place] | | | | [phone] | [phone] | heart without angina | | | | | | pectoris; Acute | | | | | | anterior wall [place] | | | | | | (HCC) [...] 0 | | | | (VITAMIN D-3) [address] | mouth Once a week. | | [...] [place] | | | | | | [id number] | | | | | | | | +--------+ + + + + | 04/16/ | Office | Cardiology | Alin Anderson | | | 2019 | Visit | | MD [address] | | | | | | [address] | | | | | | [place] [address] | | | | | | [phone] | | | | | | | | +--------+ + + + + | 04/16/ | Procedure | Cardiology | | | | 2019 | visit | | | | +--------+ + + + + | 04/25/ Office | Cardiology | Rocio Pearl, | | | 2019 | Visit | | MD Cheryl URENA | | | | | | [place], [place] | | | | | | [address] | | | | | | | [...] the | | | | PDT | [place] coronary | results section. | | | | | artery of [place] | | | | | | heart without angina | | | | | | pectoris Acute | | | | | | anterior wall [place] | | | | | | ([facility]) | | + +--------+ + [...] | | | | | | n [place] | | | | | + +---------+ [...] sioux heart without | | angina pectoris | + + | Acute anterior wall [place] (HCC) Acute myocardial infarction of other anterior wall, | | episode of care unspecified | + + documented in this encounter"
--- OUTSIDE RECORDS SUMMARY | ~2020-03-04 | XMS | Encounter Summary ---
Demographics + + + | Address | [address] | | | [place] [address] | + + + | Home Phone [...] [place] | | | | | [address] | | + + + + + Care Team Providers + +------+ + | Care Instrumental Teacher Name | Role | Phone | [...] | | involving | [address] | [address] [place] | | | | | [place] | [place], [place] | [place], [place] | | | | | coronary | [address] | [address] | | | | | artery of | Phone: | Phone: | | | | | tor[place] martinez heart | [phone] | [phone] | | | | | without | Fax: | Fax: | | | | | angina | [phone] | [phone] | | | | | pectoris | | | +--------+ + + + + + Encounter Details +--------+---------+ + + + | Date | Type | Department | Care Team | Description | +--------+---------+ + + + | 11/18/ | Office | [facility] | Randy Figueroa, | Coronary artery | | 2019 | Visit | MED CTR CARDIAC | MD [address] | disease involving | | | | REHABILITATION [address] | [place], | [place] coronary | | | | [address] [place] | [place] [address] | artery of [place]inez | | | | [place] [address] | [phone] | heart without angina | | | | [phone] | | pectoris (Primary | | | [...] Gael Ortega - 11/18/2018 10:00 AM PDT [facility] CARDIAC REHABILITATION [address] [facility] [address] Cardiac Rehab Date: 11/18/2018 Patient Information Patient Name: Bob Will Date of : 1955 Age: 63 y.o. Encounter Diagnoses Code Name Primary? I25.10 Coronary artery disease involving [place] coronary artery of [place] heart without angina pectoris Yes Z98.61 Post [...] | | | | | [address] [facility] | | | | | | [...] | | | | | [place] [address] | | | | | | [phone] | | | | | | | [...] [place] | | | | | | [address] | | | | | | | | +--------+ + + + + documented as of this encounter Visit Diagnoses + + | Diagnosis | + + | Coronary artery disease involving [place] coronary artery of [place] heart without | | angina pectoris - Primary | + + | Post PTCA Postsurgical percutaneous transluminal coronary angioplasty status | + + documented in this encounter"
--- OUTSIDE RECORDS SUMMARY | ~2020-03-04 | XMS | Encounter Summary ---
Demographics + + + | Address | [address] | | | [place] [address] | + + + | Home Phone [...] [place] | | | | | [address] | | + + + + + Care Team Providers + +------+ + | Care Chief Operator Reformer Name | Role | Phone | + [...] | | | [address] | [address] | (Primary Dx) | | | | [place] [address] | | | | | | [phone] | | | +--------+---------+ + + + [...] [place] | | | | | | [address] | | | | | | | | +--------+ + + + + | 04/16/ | Office | Cardiology | Alin Anderson | | | 2019 | Visit | | MD Cheryl Arreguin | | | | | | [address] | | | | | | [place] [address] | | | | | | [phone] | | | | | | | [...] [place] | | | | | | [address] | | | | | | | | +--------+ + + + + documented as of this encounter Visit Diagnoses + + | Diagnosis | + + | Chronic systolic CHF (congestive heart failure) (HCC) - Primary | + + documented in this encounter"
--- OUTSIDE RECORDS SUMMARY | ~2020-03-04 | XMS | Encounter Summary ---
Demographics + + + | Address | [address] | | | [place] [address] | + + + | Home Phone [...] [place] | | | | | [address] | | + + + + + Care Team Providers + +------+ + | Care Color Technician Name | Role | Phone | [...] + + | 05/26/ | Office | [facility] | Jenny, | Acute anterior wall | | 2017 | Visit | CARDIOLOGY [address] | ADARSH [address] | [place] ([facility]) (Primary | | | | [place], | [place], | Dx); Coronary artery | | | | [place] [address] | [place] [address] | disease, angina | | | | [phone] | [phone] | presence | | | | | | unspecified, | | | | | | unspecified vessel | | | | | | or lesion type, | | | | | | unspecified whether | | | | | | [place] or | | | | | | [...] coronary artery disease post recent anterior wall [place], post PTCA and stents [...] Active Problem List Diagnosis Acute anterior wall [place] CAD (coronary artery disease) CURRENT MEDICATIONS Current [...] now present Confirmed by LAUREN CHESTER MD ([id number]) on 05/05/2017 6:03:03 AM LAB RESULTS reviewed during visit today primarily from [facility]: LIPID No results found for: CHOL, TRIG, [...] 194 03/15/2017 I reviewed records from [facility] for office visit on 04/2017 whic h [...] shock requiring IABP, pressor (dopamine, norepinephrine) . [facility] and [facility] were on divert. Patient wasn't transferred to [facility], [facility]. B. Echocardiogram 03/17/2017 shows LV ejection fraction is severely decreased, visually est imated left ventricular ejection fraction is 20 - 25%, left ventricular systolic thickening is segmentally abnormal, mildly reduced RV systolic function. Normal RV size, no significant valvular abnormalities seen, compared to the most recent exam dated, 03/15/2017, there is n o significant changes C. [facility] [...] to follow up closely with a local district sales leader in [place]. He wias dischargeed wi th a LifeVest [...] is in a c lass I of [place] [employer] functional class. There is no [...] 5. Thrombocytosis A. Problem was resolved at [facility]. PLAN: 1. 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 The ruddy rwork from [employer] states clearly EF of 40% or above. Patient has been instructed to continue t aking his medication, do a blood pressure log and repeat echocardiogram before next appointm ent to see if his ejection fraction has cleared 40%. Portions of this chart may have been created with Resolver voice recognition software. Occasi onal wrong-word or [...] F | | | | | | [place] [address] | | | | | | [phone] | | | | | | | [...] [place] | | | | | | [address] | | | | | | | | +--------+ + + + + documented as of this encounter Visit Diagnoses + + | Diagnosis | + + | Acute anterior wall [place] (HCC) - Primary Acute myocardial infarction of other anterior | | wall, episode of care unspecified | + + | Coronary artery disease, angina presence unspecified, unspecified vessel or lesion | | type, unspecified whether [place] or transplanted heart | + + | Ischemic cardiomyopathy Other specified forms of chronic ischemic heart disease | + + documented in this encounter
--- OUTSIDE RECORDS SUMMARY | ~2020-03-04 | XMS | Encounter Summary ---
Demographics + + + | Address | [address] | | | [place] [address] | + + + | Home Phone [...] [place], [place] | | | | | [address] | | + + + + + Care Team Providers + +------+ + | Care Recharger Name | Role | Phone | + [...] + + | 05/04/ | Telephone | [facility] | Carolina Lindarisa, | Other (plan of care) | | 2017 | | CARDIOLOGY [address] | [address] | | | | | [place], | [place], | | | | | [place] [address] | [place] [address] | | | | | [phone] | [phone] | | | | | | | [...] [place] | | | | | | [id number] | | | | | | | | +--------+ + + + + | 04/16/ | Office | Cardiology | Alin Anderson | | | 2019 | Visit | | MD [address] | | | | | | [address] | | | | | | [place] [address] | | | | | | [phone] | | | | | | | [...] [place] | | | | | | [address] | | | | | | | | +--------+ + + + + documented as of this encounter Visit Diagnoses Not on filedocumented in this encounter"
--- OUTSIDE RECORDS SUMMARY | ~2020-03-04 | XMS | Encounter Summary ---
Demographics + + + | Address | [address] | | | [place] [address] | + + + | Home Phone [...] [place] | | | | | [address] | | + + + + + Care Team Providers + +------+ + | Care Automation Control Integrator Name | Role | Phone | + [...] | (severe) (HCC) | | | | [place], [place] | [address] [place], [place] | (Primary Dx) | | | | [address] | [address] | | | | | [phone] | | | +--------+ + + + [...] [place] | | | | | | [id number] | | | | | | | | +--------+ + + + + | 04/16/ | Office | Cardiology | Alin Anderson | | | 2019 | Visit | | MD [address] | | | | | | [address] | | | | | | [place] [address] | | | | | | [phone] | | | | | | | | +--------+ + + + + | 04/16/ | Procedure | Cardiology | | | | 2019 | visit | | | | +--------+ + + + + | 04/25/ | Office | Cardiology | Rocio Pearl, | | | 2019 | Visit | | MD Cheryl URENA | | | | | | [address] [place], [place] | | | | | | [address] | | | | | | | [...]
--- OUTSIDE RECORDS SUMMARY | ~2020-03-04 | XMS | Encounter Summary ---
Demographics + + + | Address | [address] | | | [place] [address] | + + + | Home Phone [...] [place], [place] | | | | | [address] | | + + + + + Care Team Providers + +------+ + | Care Claims Adjudicator Name | Role | Phone | + [...] | INTRA OP [address] | [place] [address] | | | | | Ave [place], [place] | [phone] | | | | | [address] | | | | | | [phone] | | | +--------+---------+ + + + [...] diffe rent from the original. DISCHARGE SUMMARY [facility] PATIENT NAME/: Ron Will, (1955) [...] and ischemi c cardiomyopathy. Previously hospitalized at [facility] in March 2017 with thrombosed left main [...] left anterior descending. Patient subsequently admitted to [facility] in 04/2018 with symptoms of congestive [...] aspirin indefinitel y. Unfortunately patient lives in [place], and his insurance is not contracted with [facility] or heart [facility]. He will follow-up with Dr. Kay in [place]. He was scheduled with a nurse practitioner in the office for next Thursday. She was discharged home in stable condition on the morning of May 21. He understands he can call our office with any questions or concerns. His prescriptions were sent to [facility], with instructions to transfer to [...] Unknown GERD (gastroesophageal reflux disease) 11/12/2017 Unknown LITIGATION SERVICES MANAGER-D (AICD) [employer] 10/16/17 [facility] Stecker 10/19/2017 Yes Implantable defibrillator reprogramming/check 10/19/2017 Unknown H/O atrial flutter 10/19/2017 Unknown Acute on chronic systolic congestive heart failure 10/17/2017 Yes Ischemic cardiomyopathy 05/26/2017 Yes Coronary artery disease involving [place] coronary artery of [place] heart without angina pectoris 04/06/2017 Yes Acute anterior wall [place] 04/03/2017 Unknown Generalized pain 03/24/2017 Unknown Abdominal [...] cardiomyopathy [I25.5 (ICD-10-CM)] 04/05/2018 10:14 - Sebastian, Business And Financial Counsel Narrative Transthoracic Echocardiography Report (TTE) Demographics Patient Name MIKE RON Room Number J Patient Number [id number] Date of Study 04/02/2018 Visit Number [id number] Referring Physician NEMO AGUILAR Number Date of 1955 Steamfitter Supervisor FRANNIE ISAACS RDCS Age 62 year(s) Interpreting NEMO AGUILAR Fisheries Technician RANDY VINCENT MD Gender Male Nurse Stress Suture Winder Hand Procedure Type of Study TTE procedure: ECHO [...] Will, (1955) DATE OF SERVICE: 05/19/2018 PRIMARY ESCALATOR OPERATOR: Macho Arredondo MD SHEEP STICKER: Khurram Canas MD PROCEDURES PERFORMED: Single-Vessel Coronary [...] SonoSite and a micro cath a 14 Amharic was eventually placed in the right femoral [...] DAY IN THE EVENING aka: LIPITOR Cholecalciferol 23388 units Caps Take by mouth Once a [...] matzo crackers Avoid: Salted crackers, pretzels, popcorn; jordanian toast, pancakes, muffins Desserts Ok: Ice cream, [...] sauce, regular gravy, regular salad dressin g [employer]. [address] [place] [address]. All righ ts reserved. This information is [...] in the hands, feet, or ankles Confusion [id number] [employer]. [address] [place] [address]. All righ ts reserved. This information is not intended as a substitute for professional medical care. Always follow your healthcare professional's instructions. Discharge References/Attachments Heart Failure, Discharge Instructions for (Faroese) ADARSH Stevens [address] [facility] [address] On 05/26/2018 check in at 230pm. This REGIONAL MERCHANDISING MANAGER works with Dr. Kay. Time spent on discharge planning: less than 30 minutes Thank you for allowing [facility] to be involved in the care [...] to discharge and I was in direct [id number] conversation with this pat ient on several occasions prior to his discharge that day regarding his follow-up in [facility]. EXAM: Cardiovascular - RRR, no murmur heard Respiratory - CTA bilaterally Lymphatic/Extremities - no significant edema Sheath site - no hematoma IMP/PLAN: Complicated 62-year-old male with ischemic cardiomyopathy transferred from [facility] where he had presented with acute heart failure, angiogram demonstrated high-grade 95% ostialcircumflex stenosis, patent RCA,patent left main and LAD. He was transferred to [facility] for consideration of high-risk revascularization. He [...] would not cov er any follow-up at [facility] or with [facility] and is referred back to his pony ride attendant in [place] which is Dr. Kay. He did see [...] matzo crackers Avoid: Salted crackers, pretzels, popcorn; jordanian toast, pancakes, muffins Desserts Ok: Ice cream, [...] sauce, regular gravy, regular salad dressin g [id number] [employer] [place] [address]. All righ ts reserved. This information is [...] in the hands, feet, or ankles Confusion [id number] [employer]. [address] [place] [address]. All righ ts reserved. This information is not intended as a substitute for professional medical care. Always follow your healthcare professional's instructions. AttachmentsThe following attachments cannot be sent through Care Everywhere.Heart Failure, Discharge Instructions for (Faroese)documented in this encounter Medications at Time of [...] 0 | | | | (VITAMIN D-3) 77786 | mouth Once a week. | | [...] Will DATE OF : 1955 MED RECORD: [id number] SUBJECTIVE Mr. John was seen today regarding [...] LDL No results for input(s): PHART, PO2ART, YHS7IEC, H7DOEXNM, BEART in the last 168 hours. DIAGNOSTIC STUDIES: Available data and images were reviewed personally. Significant results and findings are a ddressed here or in the Assessment and Plan. residential advisor shows: Sinus rhythm with no significant arrhythmia. ASSESSMENT/PLAN Patient Active Hospital Problem List: Acute on chronic systolic congestive heart failure (10/17/2017) POA: Yes Assessment: symptomatically improved post PCI. Diuretics held today for low filling press ure Plan: advance his medications for cardiomyopathy as tolerated Coronary artery disease involving [place] coronary artery of [place] heart without angina pe ctoris (04/06/2017) POA: Yes Assessment: as described, lew post successful PCI Plan: on aspirin and Plavix Ischemic cardiomyopathy (05/26/2017) POA: Yes Assessment: continue current medical management will add spironolactone Plan: as above Please call with any questions [facility] Carli León MD - 05/20/2018 8:49 PM PDT PATIENT NAME: Ron Will : 1955: AGE: 62 y.o. PRIMARY CARE: Jeet King MD REFERRING: Dr Canas, Dr Arredondo, Dr Cassandra Meade MD [facility] Inpatient HF consult Date of Service: 05/20/2018 IMPRESSION & PLAN In brief, this 62y old male with remote tobacco use, pre-DM, HTN, ischemic CMY, HFREF (AHA stage C, NYHA III), and MVCAD w/prior STEMI c/b VF arrest and cardiogenic shock wasadmitted to [facility] for ADHF and despite excellent diuresis, [...] up at the request of Danny Canas, Arnulof and Cassandra. My impressions and recommendations have been discussed with the patient today. The advanced heart failure service will continue to follow along. Should you have any questions or concerns, please call [phone]. Carli Meade MD MPH [facility] SUBJECTIVE Feeling better today after a [...] Daily PHYSICAL EXAM Tele: SR, no ectopy [place]: n/a BP 116/68 | Pulse 66 | [...] me. Signed by: Carli Meade MD MPH [facility] 05/20/2018, 20:49 iw ek, Devon Boyle MD [...] so he doesn't get "lost" down in [facility]. No plan for surgical intervention (other than potential LVAD) so I will sign off. Electronically signed by: Devon Trujillo M.D. [facility] 05/20/2018, 7:42 Carli León MD - 05/19/2018 8:55 AM PDT PATIENT NAME: Ron Will : 1955: AGE: 62 y.o. PRIMARY CARE: Jeet King MD REFERRING: Dr Canas, Dr Arredondo, Dr Cassandra Meade MD [facility] Inpatient HF consult Date of Service: [...] ischemic CMY. He was initially admitted to [facility] for ADHF and appropriately diure sed. [...] have any questions or concerns, please call [phone]. Carli Meade MD MPH [facility] SUBJECTIVE Good mood, happy to hear [...] Daily sodium chloride 0.45% 1,000 mL (05/18/18 264) PHYSICAL EXAM Tele: SR, no ectopy [place]: n/a BP 103/54 | Pulse 76 | [...] me. Signed by: Carli Meade MD [facility] 05/19/2018, 20:53 ve Macho szymanski MD - 05/19/2018 8:26 AM PDTFormatting of this note might be different from th e original. CARDIOLOGY DAILY PROGRESS NOTE Seen by Macho Arredondo MD on 05/19/2018 (Hospital Day: 7) PATIENT NAME: Ron Will DATE OF : 1955 MED RECORD: [id number] SUBJECTIVE Mr. John was seen today regarding [...] LDL No results for input(s): PHART, PO2ART, QIV6DPU, C6FJJQMI, BEART in the last 168 hours. DIAGNOSTIC STUDIES: Available data and images were reviewed personally. Significant results and findings are a ddressed here or in the Assessment and Plan. residential advisor shows: Sinus rhythm with no significant arrhythmia. ASSESSMENT/PLAN Patient Active Hospital Problem List: Coronary artery disease involving [place] coronary artery of [place] heart without angina pe ctoris (04/06/2017) POA: [...] Please call with any questions [facility] Karon Abbott LI UNIT CLERK - 05/19/2018 8:02 AM PDTRT referral received to evaluate for home health for COPD pt fo r high risk for readmission: 62 yo male lives at home with in [facility] Insurance is [facility] [employer] Plan Medicaid HMO. Social work to follow as needed following Complex Cardiac Team conference today. Electro nically signed by KAREN Masters at 05/19/2018 8:02 AM Carli León MD - 8:50 PM PDT PATIENT NAME: Ron Will : 1955: AGE: 62 y.o. PRIMARY CARE: Jeet King MD REFERRING: Missael Meade MD [facility] Inpatient Consult Progress Note Date of [...] planning for PTCA Carli Meade MD MPH [facility] SUBJECTIVE No overnight events, note chest [...] contact me. Signed by: Carli Meade MD [facility] 05/18/2018, 20:50 arolyn De La Cruz R [...] Will DATE OF : 1955 MED RECORD: [id number] SUBJECTIVE Mr. Will was seen today regarding [...] LDL No results for input(s): PHART, PO2ART, WMR6PVE, N0AORBHC, BEART in the last 168 hours. DIAGNOSTIC STUDIES: Available data and images were reviewed personally. Significant results and findings are a ddressed here or in the Assessment and Plan. residential advisor shows: Normally functioning pacemaker. ASSESSMENT/PLAN 1. Chronic systolic HF: better compensated on higher dose of furosemide. 2. ICM: NYHA Class III. EF 25% per echo 05/01/2018 done at [facility] (down from 35% per echo 2017). He is currently on Entresto+metprolol succinate+noris for GDMT. 3. CAD: pt has prior hx of PCI LM and Cx 03/2017, and in 10/2017 had ANY ostial Cx and POBA L M/LAD. Most recent cath done at [facility] shows patent LAD and RCA, but [...] 10pm Please call with any questions [facility] Associated attestation - Macho Arredondo MD [...] Will DATE OF : 1955 MED RECORD: [id number] SUBJECTIVE Mr. Will was seen today regarding [...] LDL No results for input(s): PHART, PO2ART, PUC1HBD, F3DPZCUR, BEART in the last 168 hours. DIAGNOSTIC STUDIES: Available data and images were reviewed personally. Significant results and findings are a ddressed here or in the Assessment and Plan. residential advisor shows: V-Pacing 100% with rates 80-90. ASSESSMENT/PLAN [...] heart transplant team. Coronary artery disease involving [place] coronary artery of [place] heart without angina pec toris Assessment & Plan A: -Patient able to ambulate the halls without chest pain or discomfort. -Currently on Aspirin daily, and nitro as needed. P: -Plan for possible coronary revascularization after case is presented at heart team meeting . LITIGATION SERVICES MANAGER-D (AICD) [employer] 10/16/17 [facility] Stecker Assessment & Plan [employer] AICD Placed in 10/2017 at [facility]. A: -Patient ventricular paced 100% this morning. No arrhythmias on telemetry. P: -No acute therapy. Continue current therapy. COPD (chronic obstructive pulmonary disease) ([facility]) Assessment & Plan A: -Patient on room [...] regimen. Please call with any questions [facility] Associated attestation - Macho Arredondo MD - 05/17/2018 11:03 PM PDTFormatting of this no te might be different from the original. PHYSICIAN ADDENDUM I reviewed today's note by ADARSH Villar EXAM: Cardiovascular - RRR, no murmur heard Respiratory - CTA bilaterally Lymphatic/Extremities - no significant edema IMP/PLAN: 62-year-old male with severe ischemic cardiomyopathy and progressive heart failure symptom s transferred from [facility] for consideration of high risk revascularization. [...] Note Room # 608/608-01 Name: Ron Will [id number] Code Status: See prior hospital encounter Isolation: [...] Dr planned to discuss case at [facility] to come up with a plan. Chronic neck pain well controlled with 10mg [place] q4. Indepen dent in room. VSS. Self imposed fluid restriction. Enjoyed discussion with sales representative jewelry this AM. Additional 20mg lasix ordered and [...] done, but we need to define the retirement plan. Doubt that CABG indicated given ability to stent Circ. I told Mr. Will that it will be a few days to sort out. Electronically signed by: Devon Trujillo M.D. [facility]oracic [facility] 05/16/2018, 10:00 Khurram Hernandez MD - 05/16/2018 8:06 AM PDT CARDIOLOGY DAILY PROGRESS NOTE Seen by ADARHS Cevallos with Khurram Canas MD on 05/16/2018 (Hospital Day: 4) PATIENT NAME: Ron Will DATE OF : 1955 MED RECORD: [id number] SUBJECTIVE Mr. Will was seen today regarding [...] LDL No results for input(s): PHART, PO2ART, PDK8YZX, J0HFSSTX, BEART in the last 168 hours. DIAGNOSTIC STUDIES: Available data and images were reviewed personally. Significant results and findings are a ddressed here or in the Assessment and Plan. residential advisor shows: Normally functioning pacemaker. ASSESSMENT/PLAN 1. Chronic [...] EF 25% per echo 05/01/2018 done at [facility] (down from 35% per echo 2017). He is currently on Entresto+metprolol succinate for GDMT. Consider adding Eplerenone. Wait for advanced HF team recommendations. 3. CAD: pt has prior hx of PCI LM and Cx 03/2017, and in 10/2017 had ANY ostial Cx and POBA L M/LAD. Most recent cath done at [facility] shows patent LAD and RCA, but [...] Please call with any questions [facility] PHYSICIAN ADDENDUM I reviewed today's note by ADARSH Quan EXAM: Cardiovascular - RRR, no murmur heard Respiratory - CTA bilaterally Lymphatic/Extremities - trace edema IMP/PLAN: Mild dyspnea - will increase lasix a little CMP - on metoprolol succ. and entresto, will add aldactone CAD continue ASA/Plavix, consider circ PCI depending on retirement CMP plan Await Advanced Heart Failure team plan - and anticipate heart team discussion on Wed AM hewKhurram MD - 05/15/2018 12:50 PM PDT CARDIOLOGY DAILY PROGRESS NOTE Seen by ADARSH Cevallos with Khurram Canas MD on 05/15/2018 (Hospital Day: 3) PATIENT NAME: Ron Will DATE OF : 1955 MED RECORD: [id number] SUBJECTIVE Mr. Will was seen today regarding [...] LDL No results for input(s): PHART, PO2ART, PSQ4LXS, D1ROZTPG, BEART in the last 168 hours. DIAGNOSTIC STUDIES: Available data and images were reviewed personally. Significant results and findings are a ddressed here or in the Assessment and Plan. residential advisor shows: Normally functioning pacemaker. ASSESSMENT/PLAN 1. Chronic systolic HF: current compensated/euvolemic on low dose furosemide. 2. ICM: NYHA Class II-III. EF 25% per echo 05/01/2018 done at [facility] (down from 35% per echo 03/2018). [...] L M/LAD. Most recent cath done at [facility] shows patent LAD and RCA, but he has a tight stenosis ostial Cx. CTS consulted re: CABG to Cx, but the pt is considered very high risk. Currently he is not having any angina. Dr Canas will review the cath films from [facility] and determine i f PCI to [...] am Please call with any questions [facility] PHYSICIAN ADDENDUM I reviewed today's note by [...] it's a high risk PCI with sub-optimal retirement results. It might make sense to revasc the circ now if that will help bridge us to some advanced heart failure proc edure, but I don't know how much long term care social worker benefit there will be to just doing a circ PCI wi thout a longer term plan. Will await the heart failure team's input and will want to discus s him at heart team meeting this week. anna Chakraborty RN - 05/15/2018 12:42 PM PDT 6N / 6S Shift Summary Note Room # 608/608-01 Name: Ron Will [id number] Code Status: See prior hospital encounter Isolation: [...] neck pain well controll ed with 10mg [place] q4. Independent in room. VSS. Self imposed [...] Note Room # 608/608-01 Name: Ron Will [id number] Code Status: See prior hospital encounter Isolation: [...] neck pain well controlled with 10m g [place] q4. Independent in room. VSS. Self imposed [...] Pain: Chronic neck pain controlled with 10mg [place] q4f Activity: Independent in room Therapy involved?: Janel Ventura ARNP - 05/14/2018 9:31 AM PDTFormatting of this note might be different from the devante chavez CARDIOLOGY DAILY PROGRESS NOTE Seen by ADARSH Yoon with Macho Arredondo MD on 05/14/2018 (Hospital Day: 2) PATIENT NAME: Ron Will DATE OF : 1955 MED RECORD: [id number] SUBJECTIVE Mr. Will was seen today regarding [...] LDL No results for input(s): PHART, PO2ART, JUO5DHI, S4VFFCGF, BEART in the last 168 hours. DIAGNOSTIC STUDIES: Available data and images were reviewed personally. Significant results and findings are a ddressed here or in the Assessment and Plan. residential advisor shows: Sinus rhythm with no significant arrhythmia. ASSESSMENT/PLAN COPD (chronic obstructive pulmonary disease) (HCC) Assessment & Plan Chronic condition. Chronic systolic congestive heart failure (HCC) Assessment & Plan No indication of acute volume overload. LITIGATION SERVICES MANAGER-D (AICD) [employer] 10/16/17 [facility] Stecker Assessment & Plan BiV paced this am. Placen in 10/2017 at [facility]. No arhythmia noted on telemetry. Ischemic cardiomyopathy Assessment & Plan 03/2018: LVEF of 35%. 04/2018: LVEF of 25%. Done at [facility] while admitted for CHF-pulmonary edema, and shortness o f breath. GDMT:Fuorsomide, metoprolol XL, and Entresto. Creatinine stable 1.23-could consider spironolactone. NYHA II Coronary artery disease involving [place] coronary artery of [place] heart without angina pec toris Assessment & Plan 03/2017: transferred from [place] to [facility] with thrombosed left main artery treated with PCI of the left main into the LAD and subsequent PCI of left circumflex. Acute cardiogenic shock status post ECMO. Left atrial clot, previously on coumadin. 10/2017 when he was admitted at [facility] for pneumonia and unstable angina and underwent drug-el uting stent to ostial left circumflex and angioplasty of the distal left main with balloon i nflation extending into the left anterior descending. Plan: 1. Awaiting record from [facility]. 2. Surgical consult. Please call with any questions [facility] Associated attestation - Macho Arredondo MD - 05/14/2018 9:11 PM PDTFormatting of this no te might be different from the original. PHYSICIAN ADDENDUM I reviewed today's note by ADARSH Lomas EXAM: Cardiovascular - RRR, no murmur heard Respiratory - CTA bilaterally Lymphatic/Extremities - no significant edema IMP/PLAN: Patient seen by Dr. Trujillo today, more information available regarding his two weeks stay at [facility] He did have an angiogram late April at [facility], which is now available in [facility]. [...] was on Entresto before his admission to [facility], we will probably try to re-challenge him with losartan after increasing metoprolol succinate documented in this encounter H&P Notes Macho Arredondo MD - 05/13/2018 8:21 PM PDTFormatting of this note might be different fro m the original. CARDIOLOGY ADMISSION HISTORY AND PHYSICAL [facility] PATIENT NAME/: Ron Will, (1955) DATE OF ADMISSION: 05/13/2018 DATE OF SERVICE: 05/13/2018 ADMITTING PHYSICIAN: Macho Arredondo MD ADMITTING DIAGNOSIS/CHIEF COMPLAINT: Heart failure, ischemic cardio myopathy HCNW PRIMARY ESCALATOR OPERATOR: Has not previously been seen in [...] March 2017 when he was transferred from [place] to [facility] with thrombosed left main artery treated with PCI of the left main into the LAD and subsequent PCI of left c ircumflex. His hospital course at that time was complicated by acute cardiogenic shock statu s post ECMO. Left atrial clot, previously on coumadin. He was again admitted at [facility] in 10/09 018 when he was admitted [...] Despite this, he was admitted a t [facility] several days ago, with recurrent heart [...] Information during his most recent hospitalization from [facility] is not readily available. Darshan reyes [...] Medical History: Diagnosis Date Acute anterior wall [place] (HCC) 04/03/2017 Angiography and stent 03/15/2017 successful [...] Cor Angio; Surgeon: Monse Ross MD; Location: [facility] CV LAB CARDIAC CATHERIZATION N/A 10/03/2017 Procedure: CV Cor Angio; Surgeon: Delmer Dai MD; Location: [facility] CV LAB ELBOW SURGERY Left GALLBLADDER SURGERY NASAL SEPTUM SURGERY UPPER GASTROINTESTINAL ENDOSCOPY N/A 10/05/2017 Procedure: EGD; Surgeon: Terry Weir MD; Location: [facility] MEDICAL PROCEDURE UNIT Medications: Prescriptions Prior to Admission Medication Sig Dispense Refill aspirin 81 MG tablet Take 81 mg by mouth Daily. atorvaSTATin (LIPITOR) 80 MG tablet TAKE ONE TABLET BY MOUTH EVERY DAY IN THE EVENING 3 0 tablet 5 Cholecalciferol (VITAMIN D-3) 55162 units CAPS Take by mouth Once a [...] Atrial pacing Echocardiogram: May 01, 2018 from [facility] 1. Overall left ventricular systolic function [...] Coronary angiogram from October 03, 2017 from [facility] in [place] HEMODYNAMICS: LEFT HEART: Left ventricular end diastolic [...] 5. On-ST segment elevation myocardial infarction at [facility] PLAN: 1. Currently chest pain free 2. Currently he is euvolemic. 3. Discontinue intravenous heparin 4. Subcutaneous heparin 5. Cardiothoracic surgery consultation regarding suitability for revascularization versus f urther coronary stenting Thank you for allowing [facility] to be involved in the care of this patient. Please call with any questions . [facility] Patient Care Team: Chato Matson MD as PCP - General (Family Medicine) Randy Figueroa MD as Physician (Cardiology) ADARSH Stevens as Nurse Practitioner (Nurse Practitioner) documented in this en counter Procedure Notes Khurram Canas MD - 05/19/2018 4:54 PM PDTAssociated Order(s): CV CARDIAC PROCEDURECORON MACIEJ CATH and INTERVENTION REPORT PATIENT NAME/: Ron Will, (1955) DATE OF SERVICE: 05/19/2018 PRIMARY ESCALATOR OPERATOR: Randy Figueroa MD SHEEP STICKER: Khurram Canas MD PROCEDURES PERFORMED: Single-Vessel Coronary [...] SonoSite and a micro cath a 14 Amharic was eventually placed in the right femoral [...] chronic renal failure Thank you for allowing [facility] to be involved in the care of this patient. Please call with any questions . [facility] PRIMARY CARE PROVIDER: Jeet King MD Performed at [facility] documented in this encounter Consult [...] [facility] Inpatient Advanced Heart Failure Consult Date of Service: 05/17/2018 IMPRESSION & RECOMMENDATIONS It was a pleasure to see Mr Estrella at the request of Missael Marshlal and Arnulfo. In summ maciej, Mr Will [...] Dr Canas, Dr Arredondo and Marimar Torres REGIONAL MERCHANDISING MANAGER, as well as t he patient. The advanced heart failure service will continue to follow along. Should you h ave any questions or concerns, I can be reached through the office or answering service at [phone]. Carli Meade MD MPH [facility] Disease [facility] Trans[facility] [place] [facility] Consult Question: Does Mr Will need [...] report, had repeat VF arrest in the lab manager requiri ng emergent PCI of LM into both LAD and a large co-dominant LCX. He was then supported by IA BP and VA ECMO peripherally at [facility]. He was seen in follow up with eventual WEI leading to f inding of persistent moderate to severe LV systolic dysfunction, stage C HFREF, LBBB and ear ly ISRS of LM-LCX requiring repeat PTCA to LCX and Medtronic LITIGATION SERVICES MANAGER-D. Since then, Ashok has not had durable [...] Oral Daily IV INFUSIONS: PHYSICAL EXAM Tele: [place]: n/a BP 99/56 | Pulse 72 | [...] time of PCI in 09/2017. Echo from [facility] very limited, likely due to study being transferred and images being downs ized. No evidence of marked valve pathology. LVEF globally severely depressed. No evidence o f aneurysm or thrombus w/use of definity. All Component Based Labs 05/17/18 0348 ANION GAP 10 B-TYPE NATRIURETIC PEPTIDE 224 Comment: Performed by [facility] [address] [place] [place] [address] (H) BUN 27(H) Calcium 8.7 Chloride 105 Carbon dioxide 27 Creatinine 1.89(H) Estimated GFR 37 Comment: eGFR<60 consistent with impaired kidney function. Performed by [facility] [address] [place] [place] [address] (L) GLUCOSE 103(H) K 4.6 NA 142 [...] I visited, pt w as hopeful and [id number]. He shared that he has been in and out of the hospital for the last 2 years. Pt lives in [place], and said it's been stressful for his , who is here in [place] in their RV, but is staying in [...] Flores ARNP - 05/15/2018 12:21 PM PDT [facility] Advanced Cardiac Care PATIENT NAME: Ron [...] 2017 w hen he first presented to [facility] with an acute anterior STEMI. He was found to have severe left main disease and underwent ANY to the distal LM/LAD and LM/LCX. At that t nhi he was in critical condition requiring placement of an IABP and multiple pressors. He w as then transferred to [facility] for further treatment and possible surgical revascularization. [...] LBBB and was diagnosed with recurrent anterior WV along with his pneumoni a. His troponin [...] were made to transfer the patient to [facility] but he declined and was transferred to [facility]. It appears that t he patient did require support with the placement of an Impella. Repeat Eugene ANY to ostial LCX and PTCA to distal LM into LAD along with removal of the Impella was performed at [facility]. Also, during that admission a Medtronic biventricular ICD was implanted. The patient states that he continued to have episodes of decompensated heart failure. He o nce again developed recurrent dyspnea and was admitted to [facility]. After 2 week s of therapy he was then transferred to [facility]. While there a repeat viability study was pe rformed continuing to show no viability to the anterior wall. He also underwent a repeat co ronary angiogram showing tight restenosis of the ostial LCX. He was then transferred to [facility] for possible surgical revascularization with LVAD [...] and LM/LCx bifur cations 03/2017 transferred to [facility] in critical condition with IABP and multiple [...] of LCX, no significant RCA disease 10/15/17 Eugene ANY to ostial LCX, PTCA to distal LM into LAD, removal of Impella ([facility]) 10/2017 viability study showing no viability to [...] the ostial LCX (as reviewed by a [facility] surgical team) 2. Ischemic cardiomyopathy Please refer [...] LIST: Active Problems: Coronary artery disease involving [place] coronary artery of [place] heart without angina p ectoris Ischemic cardiomyopathy LITIGATION SERVICES MANAGER-D (AICD) Medtronic 10/16/17 [facility] Chronic systolic congestive heart failure COPD (chronic obstructive pulmonary disease) Past Medical History: Diagnosis Date Acute anterior wall WV (HCC) 04/03/2017 Angiography and stent 03/15/2017 successful [...] Cor Angio; Surgeon: Monse Ross MD; Location: [facility] CV LAB CARDIAC CATHERIZATION N/A 10/03/2017 Procedure: CV Cor Angio; Surgeon: Delmer Dai MD; Location: [facility] CV LAB ELBOW SURGERY Left GALLBLADDER SURGERY NASAL SEPTUM SURGERY UPPER GASTROINTESTINAL ENDOSCOPY N/A 10/05/2017 Procedure: EGD; Surgeon: Terry Weir MD; Location: [facility] MEDICAL PROCEDURE UNIT No family history [...] of this note have been dictated using Wallstr recognition s oftware. It will be reviewed [...] additi on. Mr. Will had a massive WV and underwent left main/LAD/circumflex stenting and was [...] the reward. This was all done in [place] at [facility]. A couple of weeks ago he presented with worsening heart failure having weight gain and prog ressive dyspnea over a couple of weeks prior to his admission. His ejection fraction was fo und to be reduced to 20-25%. He underwent repeat coronary angiography at [facility] and was fou nd to have [...] rt. The patient therefore was transferred to [facility] and admitted this morning by Dr. Arredondo. [...] signed by: Devon Trujillo M.D. CardioThoracic Surgery [facility] 05/14/2018 16:28 [facility] Cardiothoracic Surgical Consult Date of Consultation: 05/14/2018 NAME/AGE/: Ron Will 62 y.o. male (1955) ADMISSION DATE: 05/13/2018 Primary Fisheries Technician: Dr. Figueroa Requesting/Referring Physician: Dr. Arredondo Primary Care Provider: Chato Matson MD REASON FOR CONSULTATION 2-vessel CAD History of Present Illness Mr. Will is a 62 y.o. male with a history of CAD that involves an WV with cardiac arre st, IABP, and even ECMO in March of last year. At that time, he received stents to his left m ain, LAD, and circumflex arteries. He subsequently underwent repeat stenting of the ostial circumflex in October 2017. He was transferred to [facility] yesterday for evaluation for CABG after a cath last week showed significant in-stent restenosis at the take-offs of his LAD and circu mflex arteries. He apparently also had a nuclear medicine stress test, echocardiogram, and v iability study at [facility] prior to transfer here and our [...] but stopped at the time of his WV last year. Aside from his arrest, he's never had any r espiratory problems that have required intervention, does not use any inhalers, and has good activity tolerance. thinks she may have been told he could have had a stroke at the ti me of his WV, but from what I gather this was probably during the acute setting around the [facility] he was on ECMO and she's [...] and is a large, dominant artery. 03/15/2017: WV, cardiogenic shock -> IABP, ECMO. Stents to left main, LAD, circumflex. 2. Ischemic cardiomyopathy History of cardiac arrest 03/15/2017. AICD in place, no defibs since his initial defibrillati ons at time of arrest. LVEF 40%, decline to 30% 3. Acute renal insufficiency in chronic kidney disease Since the time of his WV. Serum Cr 1.8 today, baseline unknown. STS [...] Diagnosis Date Noted PAD (peripheral artery disease) ([facility]) Priority: High Note Last Updated: 01/06/2018 Segmental pressures 11/24/17 Abnormal left ankle brachial index of 0.91 consistent with s gurvinder segment disease. COPD (chronic obstructive pulmonary disease) ([facility]) 05/14/2018 Actinic keratosis 04/14/2018 Basal cell carcinoma [...] EP study for inducible ventricular tachycar antonio. LITIGATION SERVICES MANAGER-D (AICD) Medtronic 10/16/17 [facility] Stecker 10/19/2017 Note Last Updated: 11/11/2017 MODEL NAME MODEL# SERIAL# DATE IMPLANTED GENERATOR Medtronic [id number] 10/16/17 RV LEAD Medtronic [id number] 10/16/17 A LEAD Medtronic [id number] 10/16/17 Coronary Sinus LEAD Medtronic [id number] 10/16/17 Indication: ischemic cardiomyopathy with reduced EF 30-35% Implantable defibrillator reprogramming/check 10/19/2017 H/O atrial flutter 10/19/2017 Chronic systolic congestive heart failure (HCC) 10/17/2017 Paroxysmal atrial flutter (HCC) 10/12/2017 Pulmonary edema 10/03/2017 Ischemic cardiomyopathy 05/26/2017 Note Last Updated: 04/05/2018 S/P Medtronic LITIGATION SERVICES MANAGER-D -- Dr Darby, [facility] Pet Scan 10/13/17 shows No Significant [...] continued to deteriorate. Coronary artery disease involving [place] coronary artery of [place] heart without angina pectoris 04/06/2017 Note Last [...] with normal respiratory collapse. Acute anterior wall WV (HCC) 04/03/2017 Note Last Updated: 10/20/2017 Transthoracic [...] Medical History: Diagnosis Date Acute anterior wall WV (HCC) 04/03/2017 Angiography and stent 03/15/2017 successful [...] Cor Angio; Surgeon: Monse Ross MD; Location: [facility] CV LAB CARDIAC CATHERIZATION N/A 10/03/2017 Procedure: CV Cor Angio; Surgeon: Delmer Dai MD; Location: [facility] CV LAB ELBOW SURGERY Left GALLBLADDER SURGERY NASAL SEPTUM SURGERY UPPER GASTROINTESTINAL ENDOSCOPY N/A 10/05/2017 Procedure: EGD; Surgeon: Terry Weir MD; Location: [facility] MEDICAL PROCEDURE UNIT Allergies: No Known [...] BID IV Meds: Imaging: No results found. [facility] [address], [address] [place] [address] Portions of this chart may have been created with [employer] Doctor voice recognition software. Occasi onal wrong-word or sound-alike substitutions may have occurred due to the inherent canseco itations of voice recognition software. Please read the chart carefully and recognize, using context, where these substitutions have occurred. documented in this en counter Miscellaneous Notes Treatment Plan - Calri Meade MD - 05/21/2018 9:[facility] Patient scheduled with mtCarli MD, for Adv Heart Failure follow up [...] Note Room # 608/608-01 Name: Ron Will [id number] Code Status: Full Code Isolation: None Dx/Tx: [...] Summary Information: Pt. Admitted on 05/17 from [facility] with recurrent HF with recurrent [...] LDAs R hand PIV Cardiac: Ventricular Rhythm: (p-waoxymztoe-mxcgr) (05/21/18 0200) Active Gtts: Abnormal Labs/ Treatment: [...] Note Room # 608/608-01 Name: Ron Will [id number] Code Status: Full Code Isolation: None Dx/Tx: [...] Note Room # 608/608-01 Name: Ron Will [id number] Code Status: Full Code Isolation: None Dx/Tx: [...] hematoma Pain: Activity: Therapy involved?: lan of [facility] - Heather Zhou RD - 05/20/2018 11:20 AM PDTStable nutritional status per available paramete rs. PO intake: 100% of low fat, 3-4 g Na meals; Wt fluctuates, but over all stable x 1 year ; Last BM 05/18. Vit D 44.8 on 05/18/18. Rounding as needed with team. Electronically signed by: Heather Garcia RD 05/20/2018 11:22 [phone] dave d by Heather Garcia RD at 05/20/2018 11:22 AM PDTPlan of [facility] Haroldo Chan RN - 4:25 AM [...] Note Room # 608/608-01 Name: Ron Will [id number] Code Status: Full Code Isolation: None Dx/Tx: [...] Summary Information: Pt. Admitted on 05/17 from [facility] with recurrent HF with recurrent [...] / 6S Shift Summary Note Room # [facility] [place] POOL/[facility] OD[place] P* Name: Ron Will [id number] Code Status: Full Code Isolation: None Dx/Tx: PCI Surgery/ Procedure: Vitals: 05/19/18 1705 05/19/18 1710 05/19/18 1715 05/19/18 1717 BP: 105/61 105/56 106/58 106/58 Pulse: 64 63 71 65 Resp: 15 16 14 12 Temp: TempSrc: SpO2: 96% 97% 97% 99% Weight: Height: Shift Summary Information: Pt admitted on 05/17 from [facility] with recurrent heart failure with recurrent [...] ostial circ in March 2017 at [facility] in . Then had a 3.0 x 13 Eugene ANY in pr ox circ, extending back into LM with post dilatation with 3.5 NC balloon in 2017 at [facility]. Anticipate doing IVUS guided PTCA only [...] well, the patien t elected to proceed. [place] [employer] Anest[employer] Grade: ASA 4 - A patient with severe systemic disease that i s a constant threat to life Mallampati Class: III (base of uvula and soft palate) [facility] [phone] lan of Care - Beckie Chambers RN [...] Note Room # 608/608-01 Name: Ron Will [id number] Code Status: See prior hospital encounter Isolation: [...] on RA, 1-2L 02 via NC at [facility] for comfort LDAs PIV intact, infusing Cardiac: [...] Note Room # 608/608-01 Name: Ron Will [id number] Code Status: See prior hospital encounter Isolation: [...] Height: Shift Summary Information: Pt transferred from [facility]. HF- SOB, pulmonary edema. P mikayla: [...] Note Room # 608/608-01 Name: Ron Will [id number] Code Status: See prior hospital encounter Isolation: None Dx/Tx: CHF Surgery/ Procedure: Vitals: 05/18/18 1048 05/18/18 1130 05/18/18 1355 05/18/18 1618 BP: 101/55 104/53 101/60 Pulse: 69 67 69 68 Resp: Temp: 36.4 C (97.5 F) (!) 30.2 C (86.3 F) TempSrc: Temporal Temporal SpO2: 94% 93% 94% Weight: Height: Shift Summary Information: Pt admitted on 05/17 from [facility] with recurrent heart failure with recurrent [...] Note Room # 608/608-01 Name: Ron Will [id number] Code Status: See prior hospital encounter Isolation: [...] on rest. 1-2L 02 via NC at [facility] for comfort LDAs PIV [...] Note Room # 608/608-01 Name: Ron Will [id number] Code Status: See prior hospital encounter Isolation: [...] Shift Summary Information: Slept most of shift. [place] PRN for chronic neck pain. Awaiting c [...] (Incisions/ Wounds/ Edema) Pain: Chronic neck pain. [place] PRN Activity: Independent Therapy involved?: lan of [...] Note Room # 608/608-01 Name: Ron Will [id number] Code Status: See prior hospital encounter Isolation: None Dx/Tx: HF, CAD, Hx WV/stents Surgery/ Procedure: care conference Thursday Vitals: 05/17/18 [...] possibly LVAD vs transplant w/u. Takes prn [place] 10mg for chronic pain. Denies pain. VSS. Spouse at bedside this evening. Ambulating independently in room/hyde c cane. Allegra n for PFT's tomorrow at 11:00. Neuro: A/o Resp: RA. Using 1-2 L NC at night for comfort LDAs PIV X1 Cardiac: 100% V-paced. EF 25%. Abnormal Labs/ Treatment: Creatinine 1.89, see labs GI: wnl : wnl Skin: (Incisions/ Wounds/ Edema) Intact Pain: Prn [place] 10 mg for chronic back pain Activity: [...] Note Room # 608/608-01 Name: Ron Will [id number] Code Status: See prior hospital encounter Isolation: [...] PDTAssociated Problem(s): COPD (chronic obstructive pulmonary disease) ([facility])A: -Patient on room air, ambulating the halls. [...] AM PDTAssociated Problem(s): Coronary artery disease involving [place] coronary artery of [place] heart without angina pectorisA: -Patient able to ambulate the halls without chest pain or discomfort. -Currently on Aspirin daily, and nitro as needed. P: -Plan for possible coronary revascularization after case is presented at heart team meeting . ssessmen t & Plan Note - Marimar Torres ARNP - 05/17/2018 10:37 AM PDTAssociated Problem( s): LITIGATION SERVICES MANAGER-D (AICD) Medtronic 10/16/17 [facility] SteckerMedtronic AICD Placed in 10/2017 at [facility]. A: -Patient ventricular paced 100% this morning. [...] Note Room # 608/608-01 Name: Ron Will [id number] Code Status: See prior hospital encounter Isolation: [...] LVAD vs heart tr ansplant. Hx ICD, WV. A&O. RA. VSS. Neuro: A&O Resp: RA. 1-2 L at night for comfort LDAs PIV Cardiac: 100% P-tracking Active Gtts: Abnormal Labs/ Treatment: GI: Active Active Orders Diet Diet fat and cholesterol modified; sodium restricted 3-4 gm; Effective Now : Voiding Skin: (Incisions/ Wounds/ Edema) Pain: [place] PRN for neck pain Activity: Independent with [...] Note Room # 608/608-01 Name: Ron Will [id number] Code Status: See prior hospital encounter Isolation: [...] for LVAD vs heart trans plant. Hx WV (age 40's), stents, HTN, HLD, and strong [...] Note Room # 608/608-01 Name: Ron Will [id number] Code Status: See prior hospital encounter Isolation: [...] t his shift, up IND w/ cane. [place] 5 x2 Q4hr for pain, well controlled. [...] Skin: (Incisions/ Wounds/ Edema) Intact Pain: PRN [place] 5mg x2 Q4 hr for chronic back [...] Note Room # 608/608-01 Name: Ron Will [id number] Code Status: See prior hospital encounter Isolation: [...] Voiding Skin: (Incisions/ Wounds/ Edema) Intact Pain: [place] 5 x2 Q4hr, chronic back pain Activity: [...] 35%. 04/2018: LVEF of 25%. Done at [facility] while admitted for CHF-pulmonary edema, and shortness o f breath. GDMT:Fuorsomide, metoprolol XL, and Entresto. Creatinine stable 1.23-could consider spironolactone. ssessment & Plan Janel Coleman ARN P - 05/14/2018 9:21 AM PDTAssociated Problem(s): Coronary artery disease involving [place] c oronary artery of [place] heart without angina pectoris7/2017: transferred from [facility] with thrombosed left main artery treated with PCI of the left main into the LAD and s ubsequent PCI of left circumflex. Acute cardiogenic shock status post ECMO. Left atrial clot, previously on coumadin. 10/2017 when he was admitted at [facility] for pneumonia and unstable angina and underwent drug-el uting stent to ostial left circumflex and angioplasty of the distal left main with balloon i nflation extending into the left anterior descending. ssessment & Plan Note - Janel Hester ARNP - 05/14/2018 9:17 AM PDTAssociated Problem(s): LITIGATION SERVICES MANAGER- D (AICD) Medtronic 10/16/17 [facility] SteckerBiV paced this am. Placen in 10/2017 at [facility]. No arhythmia noted on telemetry. Electronically signed [...] Note Room # 604/604-02 Name: Ron Will [id number] Code Status: See prior hospital encounter Isolation: [...] (Incisions/ Wounds/ Edema) dry and intact Pain: [place] 10mgs q4 for chronic neck pain Activity: [...] Note Room # 604/604-02 Name: Ron Will [id number] Code Status: See prior hospital encounter Isolation: None Dx/Tx: Surgery/ Procedure: Vitals: 05/13/18 1654 05/13/18 2224 BP: 108/60 121/69 Pulse: 73 83 Resp: 16 16 Temp: 36.4 C (97.6 F) 35.8 C (96.4 F) TempSrc: Temporal Temporal SpO2: 94% 91% Weight: 94.6 kg (208 lb 8.9 oz) Height: 1.753 m (5' 9") Shift Summary Information: Arrived from [facility] via ambulance at 1630. [facility] notified of his arrival. Arrived with Heparin gtt infusing at 16.5 ml/hr. Denied any ch est pain. Only complaint was neck pain which is chronic. Lasix was given prior to his depar ture at [facility] and the EMT staff stated he [...] QS Skin: (Incisions/ Wounds/ Edema) intact Pain: [place] 5 X 2 Q4 for chronic neck pain, wishes to take ARC. also takes neurontin Activity: Up independently, uses cane, Therapy involved?: Surgical consult tomorrow. documented in this enc ounter Plan of Treatment +--------+ + + + + | Date | Type | Specialty | Care Team | Description | +--------+ + + + + | 03/12/ | Office | Nephrology | [facility], | | | 2019 | Visit | | ADARSH [address] | | | | | | [address] [facility] | | | | | [...] | | | | | [place] [address] | | | | | | [phone] | | | | | | | [...] [place] | | | | | | [address] | | | | | | | [...] starting 05/21/2018 | | | | | [place] coronary | until 05/21/2019 | | | | | artery of [place] | | | | | | heart [...] involving | | | | | | [place] coronary | | | | | | artery of [place] | | | | | | heart [...] PROVIDE NCE | | | | by [facility] [address], | | SACRED | | | | [place] [address] | | HEART | | | |Performed by [facility] [address], [place] [address] | | MEDICAL | | | | [...] + | [facility] [place] | [address] | [place] [address] | | | [facility] | | | | | [...] | | MEDICAL | | | | [facility] [address], | | CENTER | | | | [place] [address] | | LABORATORY | | | | [...] + + | [facility] | [address] | [place] [address] | | | [facility] | | | | | LABORATORY EDGAR [...] PROVIDENCE | | | | Performed by [facility] [address] | | SACRED | | | | [address] [place] | | HEART | | | | [address] | | MEDICAL | | | | [...] + + | [facility] | [address] | [place] [address] | | | [facility] | | | | | LABORATORY EDGAR [...] PROVIDE NCE | | | | by [facility] [address], | | SACRED | | | | [place] [address] | | HEART | | | |Performed by [facility] [address], [place] [address] | | MEDICAL | | | | [...] SACRED | [address] | [place] [address] | | | [facility] | | | | | [...] | | MEDICAL | | | | [facility] [address], | | CENTER | | | | [place] [address] | | LABORATORY | | | | [...] + + | [facility] | [address] | [place] [address] | | | [facility] | | | | | BHARATI HERNÁNDEZ [...] | TRACEMASTER | | Duration:196 msP Horizontal [place]:-6 degP Front [place]:72 degQ Onset:508 | | | msQRSD Interval:148 msQT Interval:500 msQTcB:508 msQTcF:505 msQRS | | | Horizontal [place]:217 degQRS [place]:167 degI-40 Horizontal [place]:188 | | | degI-40 Front [place]:148 degT-40 Horizontal [place]:231 degT-40 Front | | | [place]:163 degT Horizontal [place]: degT Wave [place]:15 degS-T Horizontal | | | [place]:67 degS-T Front [place]:-59 degSeverity:- ABNORMAL ECG | | | -INTERP:ATRIAL-SENSED VENTRICULAR-PACED COMPLEXESElectronically signed | | | by: , 05-20-2018 05:48:28 | | |QTcB:508 ms | | |QTcF:505 ms | | |QRS Horizontal [place]:217 deg | | |QRS [place]:167 deg | | |I-40 Horizontal [place]:188 deg | | |I-40 Front [place]:148 deg | | |T-40 Horizontal [place]:231 deg | | |T-40 Front [place]:163 deg | | |T Horizontal [place]: deg | | |T Wave [place]:15 deg | | |S-T Horizontal [place]:67 deg | | |S-T Front [place]:-59 deg | | |Severity:- ABNORMAL ECG - | | |INTERP:ATRIAL-SENSED VENTRICULAR-PACED COMPLEXES | | |Electronically signed by: , 05-20-2018 05:48:28 | | + + + + + + + + | Performing | Address | City/State/Zipcode | Phone Number | | Organization | | | | + + + + + | EDIE HEIN | [address] [place] | [place] [address] | [phone] | + + + + + CV [...] Will, (1955) MEDICAL RECORD | | NUMBER: [id number] DATE OF SERVICE: 05/19/2018 PRIMARY ESCALATOR OPERATOR: Macho | | MD Arnulfo SHEEP STICKER: Khurram Canas MD PROCEDURES | | PERFORMED: [...] SonoSite and a micro cath a 14 Amharic was eventually placed in | | the [...] | | failure Thank you for allowing [facility] to be involved in the care | | of this patient. Please call with any questions . Electronically | | signed by: Khurram Canas MD on 05/19/2018 at 16:54 [facility] | | PRIMARY CARE PROVIDER: Jeet King MD Performed at [facility] | | [facility] | + + | Addendum by Khurram Canas MD on 05/19/2018 5:23 PM CORONARY CATH and INTERVENTION | | REPORT PATIENT NAME/: Ron Will, (1955) MEDICAL RECORD | | NUMBER: [id number] DATE OF SERVICE: 05/19/2018 PRIMARY ESCALATOR OPERATOR: Macho | | MD Arnulfo SHEEP STICKER: Khurram Canas MD PROCEDURES | | PERFORMED: [...] SonoSite and a micro cath a 14 Amharic was eventually placed in | | the [...] | | failure Thank you for allowing [facility] to be involved in the care | | of this patient. Please call with any questions . Electronically | | signed by: Khurram Canas MD on 05/19/2018 at 16:54 [facility] | | PRIMARY CARE PROVIDER: Jeet King MD Performed at [facility] | | [facility] | + + | Addendum by Khurram Canas MD on 05/19/2018 5:21 PM CORONARY CATH and INTERVENTION | | REPORT PATIENT NAME/: Ron Will, (1955) MEDICAL RECORD | | NUMBER: [id number] DATE OF SERVICE: 05/19/2018 PRIMARY ESCALATOR OPERATOR: Macho | | MD Arnulfo SHEEP STICKER: Khurram Canas MD PROCEDURES | | PERFORMED: [...] SonoSite and a micro cath a 14 Amharic was eventually placed in | | the [...] | | failure Thank you for allowing [facility] to be involved in the care | | of this patient. Please call with any questions . Electronically | | signed by: Khurram Canas MD on 05/19/2018 at 16:54 [facility] | | PRIMARY CARE PROVIDER: Jeet King MD Performed at [facility] | | [facility] | + + + + + | Narrative | Performed At | + + + | Khurram Isabel | [facility] | | MD Missael 05/20/2018 18:40CORONARY CATH and INTERVENTION REPORT | | | PATIENT NAME/: Ron Will, (1955)MEDICAL RECORD | | | NUMBER: [id number] OF SERVICE: 05/19/2018PRIMARY | | | ESCALATOR OPERATOR: Randy Figueroa MD SHEEP STICKER: | | | Khurram Canas MD PROCEDURES [...] SonoSite and a micro cath a 14 Amharic was | | | eventually placed in [...] failure Thank you for allowing [facility] | | | to be involved in the care of this patient. Please call with any | | | questions . [facility] PRIMARY CARE | | | PROVIDER:Jeet King MD Performed at [facility] | [facility] | | |administered to the patient at [...] | | | |Thank you for allowing [facility] to be involved in | | |the care of this patient. Please call with any questions [phone] | | |[phone]. | | | | | | | | |[facility] | | | | | | | | | | | | | | |PRIMARY CARE PROVIDER: | | |Jeet King MD | | | | | | | | | | | | | | |Performed at [facility] | | + + + [...] + | [facility] | [address] | [place] [address] | | | [facility] | | | | | [...] | [address] | [place] [address] | | | [facility] | [...] + + | [facility] | [address] [place] | [place] [address] | | | [facility] | | | | | [...] | | MEDICAL | | | | [facility] [address], | | CENTER | | | | [place] [address] | | LABORATORY | | | | [...] + + | [facility] | [address] | [place] [address] | | | HEART [facility] | | | | [...] | | | | defined by the [place] | | HEART | | | | [facility] and an | | MEDICAL | | [...] IOM | | | | | | ([place] [facility]). | | | | | [...] [facility] | | | | | | [id number] | | | | | | [address] [place], [place] | | | | | | [phone] Daniel | | | | | | Sergei BREWER Ph:[phone] | | | | + + + + + + + + | Specimen | + + | Blood specimen | | (specimen) | + + + + + + + | Performing | Address | City/State/Zipcode | Phone Number | | Organization | | | | + + + + + | [facility] | [address] | [place] [address] | | | [facility] | | | | | [...] | | MEDICAL | | | | [facility] [address], | | CENTER | | | | [place] [address] | | LABORATORY | | | | [...] + | [facility] | [address] | [place] [address] | | | [facility] | | | | | [...] [facility] | | | | Performed by [facility] [address] | | SACRED | | [...] [address] | [place] [address] | | | HEART [facility] | | | | [...] | | MEDICAL | | | | [facility] [address], | | CENTER | | | | [place] [address] | | LABORATORY | | | | [...] + + | [facility] | [address] | [place] [address] | | | [facility] | | | | | LABORATORY EDGAR [...] PROVIDE NCE | | | | by [facility] [address], | | SACRED | | | | [place] [address] | | HEART | | | |Performed by [facility] [address], [place] [address] | | MEDICAL | | | | [...] + | [facility] | [address] | [place] [address] | | | [facility] | | | | | [...] | | MEDICAL | | | | [facility] [address], | | CENTER | | | | [place] [address] | | LABORATORY | | | | | | CERNER | | + + + + + + + + | Specimen | + + | Blood specimen | | (specimen) | + + + + + + + | Performing | Address | City/State/Zipcode | Phone Number | | Organization | | | | + + + + + | ALIREZATIADaquan KRYSTNE | [address] | [place] [address] | | | [facility] | | | | | LABORATORY EDGAR [...] | | | POC | Performed by [facility] [address] | | SACRED | | | | [address], [place] | | HEART | | | | [address] | | MEDICAL | | | | [...] [address] | [place] [address] | | | HE[facility] MEDICAL CENTER | [...] | | | POC | Performed by [facility] [address] | | SACRED | | | | [address] [place], [place] | | HEART | | | | [address] | | MEDICAL | | | | [...] + + | ALIREZACHRISTA BASHIR | [address] | [place] [address] | | | [facility] | | | | | [...] | | | POC | Performed by [facility] [address] | | SACRED | | | | [address], [place] | | HEART | | | | [address] | | MEDICAL | | | | [...] [address] | [place] [address] | | | HE[facility] MEDICAL CENTER | [...] | | MEDICAL | | | | [facility] [address] | | CENTER | | | | [place] [address] | | LABORATORY | | | | [...] + + | BUCK [facility] | [address] | [place] [address] | | | [facility] | | | | | [...] | | | | | dose on [facility] 05/13/18 at 2115 | | | [...] 9:52 | | | | | Starting [facility] 05/13/18 at 2106 | | PM [...] | | | | First dose on [facility] 05/13/18 at 2100, | | | [...]
--- OUTSIDE RECORDS SUMMARY | ~2020-03-04 | XMS | Encounter Summary ---
Demographics + + + | Address | [address] | | | [place] [address] | + + + | Home Phone [...] [place], [place] | | | | | [address] | | + + + + + Care Team Providers + +------+ + | Care Stonemason Apprentice Name | Role | Phone | + +------+ + PCP | Unavailable | + +------+ + Encounter Details +--------+---------+ + + + | Date | Type | Department | Care Team | Description | +--------+---------+ + + + | 03/15/ | [facility] | Monse Mac MD | CV Cor Angio | | 2017 | | MED CTR CV INTRA OP | [address] | | | | | [address] | [place] | | | | | [place] | [address] | | | | | [address] | | | | | | [phone] | | | +--------+---------+ + + + [...] Anton Mac MD ADMITTING DIAGNOSIS: Acute Anterior CT DISPOSITION: [facility] [...] Rodriges RN - 03/15/2017 8:33 AM PDTSee labourers print out. For vitals etc..Alia ctronically signed [...] and went to the ER in [facility] where the EKG showed ant CT and he was transported here via air [...] is listed above. OBJECTIVE: PHYSICAL EXAM HR=55; FS=242/80 HEENT--unremarkable; Obese; ERNIE. CV--RRR with distant HS; No mgr Lungs---clear Abd---obese Ext--no edema. ECG: NSR; Acute Anterior CT. LAB RESULTS: Pending. ASSESSMENT: AMI PLAN: Emergent [...] PROVIDER: No primary care provider on file. DIRECTOR TRADING: Dr. Monse Mac MD PRE-PROCEDURE DIAGNOSIS: Acute Anterior CT POST-PROCEDURE DIAGNOSIS: Same PROCEDURES PERFORMED: 1. Coronary [...] was performed in multiple views using 5 [place] TIG and JR diagnostic catheters. After review [...] not able to transfer the patient expediently ([facility] did not have beds; [facility] surgeons were busy with their own complications; [...] ostial LCx. He was then transported to [facility] very serious condition on multiple [...] not able to transfer the patient expediently ([facility] did not have beds; [facility] red Heart surgeons were busy [...] ostial LCx. He was then transported to [facility] in very serious condition on multiple drips and IAPB---discussion with the family was car ried to regarding his poor medical condition and the fact that he would probably not going t o survive this hospitalization. Monse Mac MD [facility] DATE/TIME: 03/15/2017 10:05 03/15/2017 10:05 Ron [...] in appropriate position Patient was in the labourers when I was called for emergency intubation on the patient. Teresita gonzalez was found to have left main disease and initially had been coded in the labourers and th had shocked him once. Patient [...] Care was turned over back to the woodworking machine feeder that is managing this patient 's case. Critical care time for this patient was approximately 45 minutes excluding intubationElectr onically signed by Ron Hawkins MD at 03/15/2017 9:23 AM PDTdocumented in th is encounter Miscellaneous Notes Goals of Richar - Van Rodriges RN - 03/15/2017 8:31 AM PDTLifeflight team received re port from laboratory tester team. 8:3 2 AM PDTGoals Van Nelson RN - 03/15/2017 8:04 AM PDTUpdated , regard ing pt condition. Advised her to come to [facility] and if pt leaves for [place] prior to her ar rival I will divert her. oals Van Nelson RN - 03/15/2017 7:29 AM PDTSpoke again with life flight. Fixed wing coming from [place] 45min, and 38n min for helicopter crew. [...] | | | | | [place] [address] | | | | | | [phone] | | | | | | | | +--------+ + + + + | 04/16/ | Procedure | Cardiology | | | | 2019 | visit | | | | +--------+ + + + + | 04/25/ | Office | Cardiology | Rocio Pearl, | | | 2019 | Visit | | [address] | | | | | | [place], [place] | | | | | | [address] | | | | | | | [...] | | | : | | | [id number] | | | [id number] | | | ATE OF | | [...] | | | 5 | | | [place] | | | TIG | | | [...] mg | | | | PRN, Starting Gaylord 03/15/17 at 0940, | | 17 9:40 [...] | mL/hr | | | PRN, Starting Gaylord 03/15/17 at 0607, | | AM PDT [...] 6:02 | | | | | Starting Gaylord 03/15/17 at 0602, | | AM PDT | | | | | Intra-op | | | | | | + +-------+ + +---+---+ +---+---+ | | | +---+---+ + +-------+ +--------+---+---+ | clopidogrel (PLAVIX) tablet | Given | 03/15/20 | 600 mg | | | | ONCE PRN, Starting Gaylord 03/15/17 at | | 17 9:40 | [...] mcg/kg/m | mL/hr | | | Starting Gaylord 03/15/17 at 0735, | | AM PDT | in | | | | Intra-op | | | | | | + +---------+ + +-------+---+ +---+---+ | | | +---+---+ + +-------+ +-------+---+---+ | etomidate (AMIDATE) injection | Given | 03/15/20 | 20 mg | | | | ONCE PRN, Starting Gaylord 03/15/17 at | | 17 7:20 | | | | | 0720, Intra-op | | AM PDT | | | | + +-------+ +-------+---+---+ +---+---+ | | | +---+---+ + +-------+ +--------+---+---+ | fentaNYL (PF) injection ONCE | Given | 03/15/20 | 50 mcg | | | | PRN, Starting Gaylord 03/15/17 at 0547, | | 17 7:05 [...] | | | | | PRN, Starting Gaylord 03/15/17 at 0555, | | | | | | | Intra-op | | | | | | + +-------+ +---+---+---+ +---+---+ | | | +---+---+ + +-------+ +------+---+---+ | ondansetron (ZOFRAN) injection | Given | 03/15/20 | 4 mg | | | | ONCE PRN, Starting Gaylord 03/15/17 at | | 17 7:04 | [...]
--- OUTSIDE RECORDS SUMMARY | ~2020-03-04 | XMS | Encounter Summary ---
Demographics + + + | Address | [address] | | | [place] [address] | + + + | Home Phone [...] [place] | | | | | [address] | | + + + + + Care Team Providers + +------+ + | Care Spaghetti Press Helper Name | Role | Phone | [...] + | 09/05/ | Refill | [facility] | Randy Figueroa, | Medication Refill | | 2018 | | CARDIOLOGY [address] [place] | | | | | [place], | [place], | | | | | [place] [address] | [place] [address] | | | | | [phone] | [phone] | | | | | | | [...] [place] | | | | | | [address] | | | | | | | | +--------+ + + + + | 04/16/ | Office | Cardiology | Alin Anderson | | | 2019 | Visit | | MD [address] | | | | | | [address] | | | | | | [place] [address] | | | | | | [phone] | | | | | | | [...] [place] | | | | | | [address] | | | | | | | | +--------+ + + + + documented as of this encounter Visit Diagnoses Not on filedocumented in this encounter"
--- OUTSIDE RECORDS SUMMARY | ~2020-03-04 | XMS | Encounter Summary ---
Demographics + + + | Address | [address] | | | [place] [address] | + + + | Home Phone [...] [place], [place] | | | | | [address] | | + + + + + Care Team Providers + +------+ + | Care Cell Phone Repair Technician Name | Role | Phone | [...] + + | 11/24/ | Hospital | [facility] | [place], | Coronary artery | | 2018 | Encounter | MED CTR ULTRASOUND | ADARSH [address] | disease involving | | | | [address] [place] | [address], | [place] coronary | | | | [place], [place] | [place] [address] | artery of [place] | | | | [address] | [phone] | heart without angina | | | | [phone] | | pectoris | | | | [...] 0 | | | | (VITAMIN D-3) [address] | mouth Once a week. | | [...] | 03/12/ | Office | Nephrology | Ltizy, | | | 2019 | Visit | | ADARSH [address] | | | | | | [address] | | | | | | [address] [place] | | | | | | [address] | | | | | | | | +--------+ + + + + | 04/16/ | Office | Cardiology | Alin Anderson | | 2019 | Visit | | MD [address] | | | | | | [address] | | | | | | [facility] [place] [address] | | | | | | [phone] | | | | | | | | +--------+ + + + + | 04/16/ | Procedure | Cardiology | | | | 2019 | visit | | | | +--------+ + + + + | 04/25/ | Office | Cardiology | Rocio Pearl, | | | 2019 | Visit | | MD [address] | | | | | | [place] | | | | | | [address] | | | | | | | [...] the | | | | PDT | [place] coronary | results section. | | | | | artery of [place] | | | | | | heart [...] + + | Coronary artery disease involving [place] coronary artery of [place] heart without | | angina pectoris | + + documented in this encounter"
--- OUTSIDE RECORDS SUMMARY | ~2020-03-04 | XMS | Encounter Summary ---
Demographics + + + | Address | [address] | | | [place] [address] | + + + | Home Phone [...] [place], [place] | | | | | [address] | | + + + + + Care Team Providers + +------+ + | Care Ear Machine Operator Name | Role | Phone [...] [address] | | | | | [place], | [place], | | | | | [place] [address] | [place] [address] | | | | | [phone] | [phone] | | | | | | | [...] | 03/12/ | Office | Nephrology | [facility], | | | 2019 | Visit | | ADARSH [address] | | | | | | [address] [facility] | | | | | | [address] [place] | | | | | | [address] | | | | | | | | +--------+ + + + + | 04/16/ | Office | Cardiology | Alin Anderson | | 2019 | Visit | | MD [address] | | | | | | [address] | | | | | | [place] [address] | | | | | | [phone] | | | | | | | [...] [place] | | | | | | [address] | | | | | | | | +--------+ + + + + documented as of this encounter Visit Diagnoses Not on filedocumented in this encounter"
--- OUTSIDE RECORDS SUMMARY | ~2020-03-04 | XMS | Encounter Summary ---
Demographics + + + | Address | [address] | | | [place] [address] | + + + | Home Phone [...] [place], [place] | | | | | [address] | | + + + + + Care Team Providers + +------+ + | Care Dice Dealer Name | Role | Phone | [...] + + | 12/10/ | Office | [facility] | RahulyazshirazRandy, | Acute anterior wall | | 2018 | Visit | MED CTR CARDIAC | MD [address] | [place] ([facility]) (Primary | | | | REHABILITATION [address] | [place], | Dx) | | | | [address] [place] | [place] [address] | | | | | [place] [address] | [phone] | | | | | [phone] | | | +--------+---------+ + + + [...] as of this encounter Progress Cheri Mchugh, CENTRIFUGAL SEPARATOR - 12/10/2017 9:00 AM PDT [facility]ATION [address] [place] [facility] [address] Cardiac Rehab Date: 12/10/2017 Patient Information Patient Name: Bob Will Date of : 1955 Age: 62 y.o. Encounter Diagnoses Code Name Primary? I21.09 Acute anterior wall [place] (HCC) Yes Number of Visits Approved: 36 [...] note. Electronically signed by: Cheri Harvey RRT, 12/10/2017 9:32 Patient Name: Bob Will/: 1955/ document ed in this encounter Plan of Treatment +--------+ + + + + | Date | Type | Specialty | Care Team | Description | +--------+ + + + + | 03/12/ | Office | Nephrology | Litzy, | | | 2019 | Visit | | ADARSH [address] | | | | | | [address] [facility] | | | | | | [...] | | | | | [place] [address] | | | | | | [phone] | | | | | | | [...] [place] | | | | | | [address] | | | | | | | | +--------+ + + + + documented as of this encounter Visit Diagnoses + + | Diagnosis | + + | Acute anterior wall [place] (HCC) - Primary Acute myocardial infarction of other anterior | | wall, episode of care unspecified | + + documented in this encounter"
--- OUTSIDE RECORDS SUMMARY | ~2020-03-04 | XMS | Encounter Summary ---
Demographics + + + | Address | [address] | | | [place] [address] | + + + | Home Phone [...] [place] | | | | | [address] | | + + + + + Care Team Providers + +------+ + | Care Vp Ancillary Name | Role | Phone | + [...] | +--------+ + + + + | 03/06/ | Implant | [facility] [place] | Randy Figueroa, | Remote Device | | 2018 | Monitor | CARDIOLOGY [address] [place] | Interrogation | | | | [place], | [place], | (Primary Dx); PRINCIPAL NETWORK ARCHITECT-D | | | | [place] [address] | [place] [address] | (AICD) [employer] | | | | [phone] | [phone] | 10/16/17 [facility]; | | | | | | Ischemic [...] encounter Procedure Notes Randy Figueroa MD - 03/06/2019 11:59 PM PDTAssociated Order(s): DEVICE INTERROGATION- R EMOTEProcedure(s): DEVICE INTERROGATION- REMOTEPre-Procedure Diagnose(s): Implantable defibr illator reprogramming/check; Biventricular ICD (implantable cardioverter-defibrillator) in hannah aldridge; Ischemic cardiomyopathyDate of Remote Interrogation: 01/18/2019 Refer to [employer] documentation and remote PDF scanned into [facility] for remote interrogation re sults. Data collected by Gloria Lau RN Presenting rhythm: Sinus rhythm, atrial sensed biventricular paced rate 86-87 beats. 0 mode switch episodes accounting for 0.0% of the time. 0 ventricular high rate episodes. PVC singles <0.1/hr PVC runs <0.1/hr Histogram good. Battery longevity 8.9 years. Apparent normal and stable device function. Device interrogation due in office in March 2019. Patient notified via voice message. documented in this encounter Plan of Treatment [...] [place] | | | | | | [address] | | | | | | | | +--------+ + + + + | 04/16/ | Office | Cardiology | Monica Alin | | | 2019 | Visit | | MD [address]yl [address] | | | | | | [address] | | | | | | [place] [address] | | | | | | [phone] | | | | | | | [...] [place] | | | | | | [address] | | | | | | | | +--------+ + + + + documented as of this encounter Procedures + +--------+ + + + | Procedure Name | Priori | Date/Time | Associated Diagnosis | Comments | | | ty | | | | + +--------+ + + + | DEVICE | Routin | 02/14/2019 | Remote Device | Results for this | | INTERROGATION- | e | 12:00 AM | Interrogation PRINCIPAL NETWORK ARCHITECT-D | procedure are in the | | REMOTE | | PDT | ([facility]) [employer] | results section. | | | | | 10/16/17 EULOGIO Darby | | | | | | Ischemic | | | | | | cardiomyopathy | | + +--------+ + + + documented in this encounter Results Device Interrogation - Remote (02/14/2019 12:00 AM PDT) + + + | Narrative | Performed At | + + + | Randy | DONNA | | MD [place] 02/14/2019 8:08Date of Remote Interrogation: | | | 01/18/2019 Refer to P[employer] documentation and remote PDF scanned into | | | [facility] for remote interrogation results. Data collected by Gloria Yen | | | ALFONSO Lau Presenting rhythm: Sinus rhythm, atrial sensed | | | biventricular paced rate 86-87 beats. 0 mode switch episodes | | | accounting for 0.0% of the time.0 ventricular high rate episodes. PVC | | | singles <0.1/hr PVC runs <0.1/hr | | | Histogram good. Battery longevity 8.9 years.Apparent normal | | | and stable device function.Device interrogation due in office in March | | | 2018.Patient notified via voice message. | | |0 ventricular high rate episodes. | | |PVC singles <0.1/hr | | |PVC runs <0.1/hr | | |Histogram good. Battery longevity 8.9 years. | | |Apparent normal and stable device function. | | |Device interrogation due in office in March 2019. | | |Patient notified via voice message. | | | | | + + + + + | Procedure Note | + + | Randy Figueroa MD - 03/06/2019 11:59 PM PDT Date of Remote Interrogation: | | 01/18/2019Refer to [employer] documentation and remote PDF scanned into [employer] for remote | | interrogation results. Data collected by Gloria Lau RN Presenting rhythm: Sinus | | rhythm, atrial sensed biventricular paced rate 86-87 beats. 0 mode switch episodes | | accounting for 0.0% of the time.0 ventricular high rate episodes. PVC singles | | <0.1/hr PVC runs <0.1/hr Histogram good. Battery longevity 8.9 | | years.Apparent normal and stable device function.Device interrogation due in office in | | March 2019.Patient notified via voice message. | |PVC singles <0.1/hr | |PVC runs <0.1/hr | |Histogram good. Battery longevity 8.9 years. | |Apparent normal and stable device function. | |Device interrogation due in office in March 2019. | |Patient notified via voice message. | + + + +---------+ + + [...] | cardiac defibrillator | + + | PRINCIPAL NETWORK ARCHITECT-D (AICD) [employer] 10/16/17 EULOGIO Darby | + + | Ischemic cardiomyopathy Other specified forms of chronic ischemic heart disease | + + documented in this encounter"
--- OUTSIDE RECORDS SUMMARY | ~2020-03-04 | XMS | Encounter Summary ---
Demographics + + + | Address | [address] | | | [place] [address] | + + + | Home Phone [...] [place] | | | | | [address] | | + + + + + Care Team Providers + +------+ + | Care Fur Pointer Name | Role | Phone | + [...] [address] | | | | | [place], [place] | [address] [place], [place] | | | | | [address] | [address] | | | | | [phone] | | | +--------+ + + + [...] [place] | | | | | | [address] | | | | | | | | +--------+ + + + + | 04/16/ | Office | Cardiology | Alin Anderson | | | 2019 | Visit | | MD Cheryl Arreguin | | | | | | [place] | | | | | | [place] [address] | | | | | | [phone] | | | | | | | [...] [place] | | | | | | [address] | | | | | | | [...]
--- OUTSIDE RECORDS SUMMARY | ~2020-03-04 | XMS | Encounter Summary ---
Demographics + + + | Address | [address] | | | [place] [address] | + + + | Home Phone [...] | | | | | [place] [address] | | + + + + + Care Team Providers + +------+ + | Care Him Tech Name | Role | Phone | + +------+ + | Chato Matson MD | PCP | | + +------+ + Encounter Details +--------+ + + + + | Date | Type | Department | Care Team | Description | +--------+ + + + + | 10/11/ | Procedure | Diagnostic Imaging | | | | 2018 | Pass | Services at [facility] | | | | | | [address] | | | | | | Tabitha Bello | | | | | | [facility] | | | | | | [place], [place] | | | | | | [address] | | | | | | [phone] | | | +--------+ + + + [...]
--- OUTSIDE RECORDS SUMMARY | ~2020-03-04 | XMS | Encounter Summary ---
Demographics + + + | Address | [address] | | | [place] [address] | + + + | Home Phone [...] [place], [place] | | | | | [address] | | + + + + + Care Team Providers + +------+ + | Care Dev Manager Name | Role | Phone | [...] [address] | | | | | [place], | [place], | | | | | [place] [address] | [place] [address] | | | | | [phone] | [phone] | | | | | | | [...] [place] | | | | | | [address] | | | | | | | | +--------+ + + + + | 04/16/ | Office | Cardiology | Alin Anderson | | | 2019 | Visit | | MD Cheryl Arreguin | | | | | | [address] | | | | | | [place] [address] | | | | | | [phone] | | | | | | | [...] [place] | | | | | | [address] | | | | | | | [...]
--- OUTSIDE RECORDS SUMMARY | ~2020-03-04 | XMS | Encounter Summary ---
Demographics + + + | Address | [address] | | | [place] [address] | + + + | Home Phone [...] | [place] | | | | | [address] | | + + + + + Care Team Providers + +------+ + | Care Chip Separator Name | Role | Phone | + [...] | | | | (moderate) | [place] [address] | [place] [address] | | | | | (HCC) | Phone: | Phone: | | | | | Procedures | [phone] | [phone] | | | | | [place] OFFICE | Fax: | Fax: | | | | | OUTPATIENT | [phone] | [phone] | | | | | VISIT 25 [...] + + | 03/08/ | Office | [facility] [place] | [place], | Chronic kidney | | 2019 | Visit | NEPHROLOGY [address] | [address]SH [address] | disease, stage III | | | | [address] | [address] | (moderate) (HCC) | | | | [place], [place] | [address] [place], [place] | (Primary Dx); | | | | [address] | [address] | Hypertension, renal | | | | [phone] | | disease, stage 1-4 | | [...] Visit Visit date: 03/08/2019 Primary care provider: Amy Olivares MD HPI: Ron Mckeon is a 63 y.o. male referred by Amy Olivares for evaluation of chronic k idney disease. -hypertension diagnosed approximately 1998 -coronary artery disease post recent anterior wall MN, post PTCA and stents of the left romero n, LAD and LCx on 03/15/17 -ischemic cardiomyopathy, VOICE STUDIES DIRECTOR-D placement in [facility] on 10/17/2017; LVEF 30-35% -"borderline" type [...] recently 03/03/19-03/04/19 at [facility] in [place], [place], requiring IV diuretics. He reports that [...] Medical History: Diagnosis Date Acute anterior wall MN (HCC) 04/03/2017 Angiography and stent 03/15/2017 successful PCI with placement of 3.0X23 stent in the distal LM and ostial LAD reducing a 100% stenotic lesion to 0% residual stenosis, successful PCI w ith placement of 2.5X18 stent in the ostial LCx reducing a 90% stenotic lesion to 0% resdual stenosis. Acute renal failure superimposed on stage 3 chronic kidney disease ([facility]) 05/01/2018 CAD (coronary artery disease) 04/06/2017 Successful PCI with placement of 3.0X23 stent in the distal LM and ostial LAD reducing a 1 00% stenotic lesion to 0% residual stenosis, successful PCI with placement of 2.5X18 stent i n the ostial LCx reducing a 90% stenotic lesion to 0% residual stenosis on 03/15/2017 by Monse Ross MD. Cancer (HCC) CHF (congestive heart failure) ([facility]) COPD (chronic obstructive pulmonary disease) ([facility]) GERD (gastroesophageal reflux disease) Hyperlipidemia Hypertension LOUISA (obstructive sleep apnea) Post traumatic stress disorder 02/19/2012 Past Surgical History: Procedure Laterality Date ANGIOGRAM Bilateral 05/19/2018 Procedure: CV Vas LE Angio; Surgeon: Khurram Canas MD; Location: [facility] CV LAB ANGIOPLASTY Left 05/19/2018 Procedure: CV PTCA Only; Surgeon: Khurram Canas MD; Location: [facility] CV LAB CARDIAC CATHERIZATION N/A 10/03/2017 Procedure: CV Cor Angio; Surgeon: Delmer Dai MD; Location: [facility] CV LAB CARDIAC CATHERIZATION N/A 03/15/2017 Procedure: CV Cor Angio; Surgeon: Monse Ross MD; Location: [facility] CV LAB CARDIAC CATHERIZATION Left 05/19/2018 Procedure: CV RHC; Surgeon: Khurram Canas MD; Location: [facility] CV LAB CARDIAC CATHERIZATION Left 05/19/2018 Procedure: CV FFR/iFR; Surgeon: Khurram Canas MD; Location: [facility] CV LAB CARDIAC CATHERIZATION Left 05/19/2018 Procedure: CV IVUS/OCT; Surgeon: Khurram Canas MD; Location: [facility] CV LAB ELBOW SURGERY Left GALLBLADDER SURGERY LEFT VENTRICULAR ASSIST DEVICE Right 05/19/2018 Procedure: CV PERC MECH CIRC SUPPORT; Surgeon: Khurram Canas MD; Location: [facility] CV LAB NASAL SEPTUM SURGERY TONSILLECTOMY UPPER GASTROINTESTINAL ENDOSCOPY N/A 10/05/2017 Procedure: EGD; Surgeon: Terry Weir MD; Location: [facility] MEDICAL PROCEDURE UNIT Social History Socioeconomic History [...] 9 0 tablet 3 Cholecalciferol (VITAMIN D-3) 93111 units CAPS Take by mouth Once a [...] RBC, External 03/08/2019 2 Final UA Specific [place], External 03/08/2019 1.013 Final UA Leukocyte Esterase, [...] as noted above. Cc: Amy Dai MD [address] [place] [address] Hansa Alvarado, JERICHOP 1 2:31 PM PDTdocumented in this encounter Plan of Treatment +--------+ + + + + | Date | Type | Specialty | Care Team | Description | +--------+ + + + + | 03/12/ | Office | Nephrology | Litzy, | | | 2019 | Visit | | [address] | | | | | | [facility] | | | | | [...] | | | | | [place] [address] | | | | | | [phone] | | | | | | | [...] [place] | | | | | | [address] | | | | | | | [...]
--- OUTSIDE RECORDS SUMMARY | ~2020-03-04 | XMS | Encounter Summary ---
Demographics + + + | Address | [address] | | | [place] [address] | + + + | Home Phone | | + + + | Preferred Language | Unknown | + + + | Marital Status | | + + + | Mandaeism Affiliation | NRP | + + + [...] | | | | | [place] [address] | | + + + + + Care Team Providers + +------+ + | Care Professor Of Legal Studies Name | Role | Phone | + [...] | | 2018 | | Services at [facility] | [facility] [place] [place] | Exam | | | | [address] | [address] | | | | | [address]itha [address]ello | | | | | | [facility] | | | | | | [place], [place] | | | | | | [address] | | | | | | [phone] | | | +--------+ + + + [...]
--- OUTSIDE RECORDS SUMMARY | ~2020-03-04 | XMS | Encounter Summary ---
Demographics + + + | Address | [address] | | | [place] [address] | + + + | Home Phone [...] [place] | | | | | [address] | | + + + + + Care Team Providers + +------+ + | Care Chief Payroll Clerk Name | Role | Phone | [...] Monitor | CARDIOLOGY [address] | [address] [place] | Interrogation | | | | [place], | [place], | (Primary Dx); SERVER MANAGER-D | | | | [place] [address] | [place] [address] | (AICD) [employer] | | | | [phone] | [phone] | 10/16/17 [facility] Travis; | | | | | | [...] [employer] documentation and remote PDF scanned into [facility] for remote interrogation re sults. Data [...] | | | | | [facility] | | | | | | [address] [place] | | | | | | [id number] | | | | | | | | +--------+ + + + + | 04/16/ | Office | Cardiology | Monica Alin | | | 2019 | Visit | | MD Cheryl Arreguin | | | | | | [place] [address] | | | | | | [place] [address] | | | | | | [phone] | | | | | | | [...] [place] | | | | | | [address] | | | | | | | [...] | e | 12:00 AM | Interrogation SERVER MANAGER-D | procedure are in the | | REMOTE | | PDT | ([facility]) [employer] | results section. | | | | [...] remote PDF scanned into | | | [facility] for remote interrogation results. Data collected [...] of Remote Interrogation: | | 01/18/2019Refer to [employer] documentation and remote PDF scanned into [employer] for remote | | interrogation results. Data [...] | cardiac defibrillator | + + | SERVER MANAGER-D (AICD) [employer] 10/16/17 EULOGIO Darby | + + | Ischemic cardiomyopathy Other specified forms of chronic ischemic heart disease | + + documented in this encounter"
--- OUTSIDE RECORDS SUMMARY | ~2020-03-04 | XMS | Encounter Summary ---
Demographics + + + | Address | [address] | | | [place] [address] | + + + | Home Phone [...] [place], [place] | | | | | [address] | | + + + + + Care Team Providers + +------+ + | Care Plate Keeper Name | Role | Phone | [...] + | 10/26/ | Clinical | [facility] [place] | Randy Figueroa, | Tachycardia (Primary | | 2018 | Support | CARDIOLOGY [address] | [address] [place] | Dx); Ischemic | | | | [place], | [place], | cardiomyopathy; | | | | [place] [address] | [place] [address] | PUBLIC HEALTH TECHNOLOGIST-D (AICD) | | | | [phone] | [phone] | [employer] 10/16/17 | | | | [...] +---------+ + + | Blood Pressure | 118/70 | 10/26/2017 3:07 PM | | | | | PST | | + +---------+ + + | Pulse | 64 | 10/26/2017 3:07 PM | | | | | PST | | + +---------+ + + | [...] +---------+ + + documented in this encounter Progress Notes Suzanne Cheng RN - 10/26/2017 1:00 PM PSTPatient is seen today two week status post BIV ICD implant. The wound is well approximated with no redness, no bruising and moderate swelling. Has steri strips in place. Patient denies: [...] ...........................................SUZANNE CHENG RN on 10/26/17 at 15:16 documented in thi s encounter Plan of [...] [place] | | | | | | [address] | | | | | | | | +--------+ + + + + | 04/16/ | Office | Cardiology | Alin Anderson | | | 2019 | Visit | | MD [address] | | | | | | [address] | | | | | | [place] [address] | | | | | | [phone] | | | | | | | | +--------+ + + + + | 04/16/ | Procedure | Cardiology | | | 2019 | visit | | | | +--------+ + + + + | 04/25/ | Office | Cardiology | Rocio Pearl, | | | 2019 | Visit | | MD Cheryl URENA | | | | | | [place], [place] | | | | | | [address] | | | | | | | | +--------+ + + + + documented as of this encounter Visit Diagnoses + + | Diagnosis | + + | Tachycardia - Primary Tachycardia, unspecified | + + | Ischemic cardiomyopathy Other specified forms of chronic ischemic heart disease | + + | PUBLIC HEALTH TECHNOLOGIST-D (GABBI) [employer] 10/16/17 EULOGIO Darby | + + documented in this encounter"
--- OUTSIDE RECORDS SUMMARY | ~2020-03-04 | XMS | Encounter Summary ---
Demographics + + + | Address | [address] | | | [place] [address] | + + + | Home Phone [...] [place] | | | | | [address] | | + + + + + Care Team Providers + +------+ + | Care Baler Name | Role | Phone | + [...] | aortic | [address] | [address] | | | | | aneurysm, | [address] | [address] | | | | | without | [place], | [place], | | | | | rupture | [place] [address] | [place] [address] | | | | | (HCC) ST | Phone: | Phone: | | | | | elevation | [phone] | [phone] | | | | | (STEMI) | Fax: | Fax: | | | | | myocardial | [phone] | [phone] | | | | | infarction | [...] | | | | | | | [place] | | | | | | | [...] Visit | CARDIOLOGY [address] | Hansa, PREPARATION CENTER COORDINATOR [address] | flutter (HCC) | | | | [place], | [place], | (Primary Dx); [place] | | | | [place] [address] | [place] [address] | (peripheral artery | | | | [phone] | [phone] | disease) ([facility]); | | | | | | Acute anterior wall | | | | | | [place] ([facility]); Coronary | | | | | | artery disease | | | | | | involving [place] | | | | | | coronary artery of | | | | | | [place] heart without | | | | | | angina pectoris; | | | | | | Ischemic | | | | | | cardiomyopathy; | | | | | | Abdominal aortic | | | | | | aneurysm (AAA) | | | | | | without rupture | | | | | | ([facility]); Benign | | | | | | essential | | | | | | hypertension; Acute | | | | | | on chronic systolic | | | | | | congestive heart | | | | | | failure ([facility]); | | | | | | Atherosclerosis of | | | | | | [place] coronary | | | | | | artery of [place] | | | | | | heart with stable | | | | | | angina pectoris | | | | | | ([facility]); Thrombsis of | | | | | | left atrial | | | | | | appendage following | | | | | | myocardial | | | | | | infarction ([facility]); | | | | | | Mixed [...] encounter Patient Instructions Patient Instructions Jeanie August Ladies Suit Operator - 03/24/2019 1:30 PM PDT1. Continu e [...] s. documented in this encounter Progress Notes Hansa Alvarado ARNP - 03/24/2019 1:30 PM PDT [...] artery disease post recen t anterior wall IL, post PTCA and stents of the left main, LAD and LCx on 03/15/17, cardiac sh ock, left atrial appendage thrombus, recent status post stents to, POLYSTYRENE BEAD MOLDER-D placement in [facility] o n 10/17/2017.Heis being seen today for [...] time, he saw his PCP at the [facility] on 10/21/18 for a follow up on his chroni c medical illness and back pain, there was no medication changes. On 02/08/19-02/10/19 he was ho spitalized at [facility] due to decompensated chronic systolic heart failure, [...] Problem List Diagnosis Acute anterior wall [place] Coronary artery disease involving [place] coronary artery of [place] heart without angina pectoris Ischemic cardiomyopathy POLYSTYRENE BEAD MOLDER-D (AICD) [employer] 10/16/17 [facility] Stecker Implantable defibrillator reprogramming/check H/O atrial flutter [...] 9 0 tablet 3 Cholecalciferol (VITAMIN D-3) 88350 units CAPS Take by mouth Once a [...] RESULTS reviewed during visit today primarily from [facility]: LIPID Lab Results Component Value [...] the HPI. RESULTS- I reviewed reports from [facility]: Echocardiogram on 11/03/18 shows this was [...] shock requiring IABP, pressor (dop amine, norepinephrine). [facility] and [facility] were on divert. Patient wasn' t transferred to [facility]. B. Echocardiogram 03/17/2017 shows LV ejection fraction is severely de creased, visually estimated left ventricular ejection fraction is 20 - 25%, left ventricular systolic thickening is segment allyabnormal,mildly reduced RV systolic function. Normal RV size, no significant valvular abnormalities seen, compared to the most recent exam dated , 03/15/2017, there is no significant changes C. At [facility], patient had another STEMI code 03/29, with [...] to follow up closely with a local video journalist in [place] . He wias dischargeed with a LifeVest [...] y we will transfer the patient to [facility] for consideration of urgent coronary revascularizatio n. [...] with one 3.0 x 18 mm resolute osaes drug - eluting stent , success ful [...] III- Symptoms with minimal exertion of the [place] Heart Ass ociation functional class. Heart failure stage C-diagnosed heart failure with symptoms. He w ill need to get taken off Plavix and start on a anticoagulant and given his history of in st ent stenosis and increase in dyspnea, he is a candidate for stress test. He has a history of cardiac issues multiple stents, heart failure. He has a POLYSTYRENE BEAD MOLDER-D therefor e can not do excercise stress [...] in the se regions. C. S/P [employer] POLYSTYRENE BEAD MOLDER-D 10-16-17 Dr Darby, [facility]. Ice interrogation today shows one episode of [...] will be needing to go back to [place] in the summer. F. Echocardiogram on 11/03/18 [...] report. He does have remote monitoring with [employer]. H. Today, 03/24/2019, he is symptomatic. He [...] Sy mptoms with moderate exertion of the [place] Heart Association functional class. Heart fail ure stage C-diagnosed heart failure with symptoms. 3. Ventricular tachycardia: A. Electrophysiology Study 10/16/17 shows positive EP study for induc ible ventricular tachycardia. B.In remote interrogation he had 65 episodes of treated VT. He is n ot on any antiarrhythmic. He is going to be seen in [place] so we will let EP know about [...] week ago. This was a fter his [place] and at the same time patient was having ventricular tachycardia. He was initia macho on amiodarone and then discontinued before discharge. The plan is to monitor through his device and see if this is a problem that needs to be addressed. Patient is not on anticoa gulation he was left that way from [facility]. Patient has had several GI bleeds and [...] medications have changed so much. Jeanie Candelario, Ladies Suit Operator am acting as a scribe on behalf of, and in the presenc e of ADARSH Stevens. - Jeanie August Ladies Suit Operator 03/24/2019 12:50 Hansa Candelario ARNP, personally performed the services described in this documentati on, as scribed in my presence and it is both accurate and complete. -ADARSH Stevens 03/24/2019 Portions of this chart may have been created with [employer] voice recognition software. Occasi onal wrong-word or [...] [place] | | | | | | [address] | | | | | | | | +--------+ + + + + | 04/16/ | Office | Cardiology | Alin Anderson | | | 2019 | Visit | | MD Cheryl Arreguin | | | | | | [address] | | | | | | [place] [address] | | | | | | [phone] | | | | | | | [...] [place] | | | | | | [address] | | | | | | | [...] the | | | | PDT | [place] coronary | results section. | | | | | artery of [place] | | | | | | [...] MD | | | | | | ([id number]) on 03/24/2019 | | | | | [...] MD | | | | | | ([id number]) on 03/24/2019 | | | | | [...] + + | Coronary artery disease involving [place] coronary artery of [place] heart without | | angina pectoris | [...] failure | + + | Atherosclerosis of [place] coronary artery of [place] heart with stable angina pectoris | | [...]
--- OUTSIDE RECORDS SUMMARY | ~2020-03-04 | XMS | Encounter Summary ---
Demographics + + + | Address | [address] | | | [place] [address] | + + + | Home Phone [...] [place], [place] | | | | | [address] | | + + + + + Care Team Providers + +------+ + | Care Financial Sales Professional Name | Role | Phone | [...] + | 06/23/ | Telephone | [facility] | Sofie Sneed MD | Other | | 2017 | | MED [facility] SLEEP | [address] | | | | | CENTER [address] | [place] | | | | | [place], [place] | [address] | | | | | [address] | | | | | | [phone] | | | +--------+ + + + [...] Miscellaneous Notes Telephone Encounter - Yessica Arredondo, Harpsichord Maker - 06/23/2018 3:38 PM PDTPatient ca llalexandrea stating he wanted to cancel the in lab sleep study. Stating his sleep has some how impr lucía. Patient was notified order would be canceled and would be notified. Emily babin signed by Yessica Arredondo, Harpsichord Maker at 06/23/2018 3:40 PM PDTdocumented in thi [...] [place] | | | | | | [id number] | | | | | | | | +--------+ + + + + | 04/16/ | Office | Cardiology | Alin Anderson | | | 2019 | Visit | | MD [address] | | | | | | [address] | | | | | | [place] [address] | | | | | | [phone] | | | | | | | [...] [place] | | | | | | [address] | | | | | | | | +--------+ + + + + documented as of this encounter Visit Diagnoses Not on filedocumented in this encounter"
--- OUTSIDE RECORDS SUMMARY | ~2020-03-04 | XMS | Encounter Summary ---
Demographics + + + | Address | [address] | | | [place] [address] | + + + | Home Phone [...] [place], [place] | | | | | [address] | | + + + + + Care Team Providers + +------+ + | Care Customer Support Assistant Name | Role | Phone | [...] | 08/03/ | Telephone | [facility] [place] | Jenny, | Blood Pressure | | 2017 | | CARDIOLOGY [address] | Hansa MUSIC VIDEO PRODUCER [address] | | | | | [place], | [place], | | | | | [place] [address] | [place] [address] | | | | | [phone] | | | | | | | [...] Cheng RN on 08/06/18 at 10:42 elephone [facility] - Hansa Alvarado ARNP - 08/06/2018 [...] [place] | | | | | | [address] | | | | | | | | +--------+ + + + + | 04/16/ | Office | Cardiology | Alin Anderson | | | 2019 | Visit | | MD [address] | | | | | | [address] | | | | | | [place] [address] | | | | | | [phone] | | | | | | | [...] [place] | | | | | | [address] | | | | | | | | +--------+ + + + + documented as of this encounter Visit Diagnoses Not on filedocumented in this encounter"
--- OUTSIDE RECORDS SUMMARY | ~2020-03-04 | XMS | Encounter Summary ---
Demographics + + + | Address | [address] | | | [place] [address] | + + + | Home Phone [...] [place] | | | | | [address] | | + + + + + Care Team Providers + +------+ + | Care Solar Energy Specialist Name | Role | Phone | [...] | | | heart | [place], | [place] | | | | | failure | [place] [address] | [place] | | | | | (HCC) | Phone: | [address] | | | | | [phone] | [phone] | Phone: | | | | | Procedures | Fax: | [phone] | | | | | Cardiac | [phone] | Fax: | | | | | Rehab | | [phone] | +--------+--------+ + + + + Encounter [...] [address] [place], [place] | failure) ([facility]) | | | | [address] [place] | [address] | | | | | [place] [address] | | | | | | [phone] | | | +--------+---------+ + + + [...] Gael Ortega - 07/21/2019 12:00 PM PST [facility] [address] [place] [address] Cardiac Rehab Date: 07/21/2019 Patient Information Patient Name: Bob Will Date of : 1955 Age: 63 y.o. Encounter Diagnoses Code Name Primary? I50.22 Chronic systolic CHF (congestive heart failure) ([facility]) Number of Visits Approved: 34 [...] [place] | | | | | | [address] | | | | | | | | +--------+ + + + + | 04/16/ | Office | Cardiology | Alin Anderson | | | 2019 | Visit | | MD Cheryl Arreguin | | | | | | [address] | | | | | | [place] [address] | | | | | | [phone] | | | | | | | [...] [place] | | | | | | [address] | | | | | | | | +--------+ + + + + documented as of this encounter Visit Diagnoses + + | Diagnosis | + + | Chronic systolic CHF (congestive heart failure) (HCC) | + + documented in this encounter"
--- OUTSIDE RECORDS SUMMARY | ~2020-03-04 | XMS | Encounter Summary ---
Demographics + + + | Address | [address] | | | [place] [address] | + + + | Home Phone [...] [place], [place] | | | | | [address] | | + + + + + Care Team Providers + +------+ + | Care Pot Washer Name | Role | Phone | [...] + | 10/19/ | Office | [facility] | Jenny, | Ischemic | | 2018 | Visit | CARDIOLOGY [address] | ADARSH [address] | cardiomyopathy | | | | [place], | [place], | (Primary Dx); | | | | [place] [address] | [place] [address] | Coronary artery | | | | [phone] | [phone] | disease involving | | | | | | nisqually coronary | | | | | | artery of nisqually | | | | | | heart without angina | | | | | | pectoris; Acute | | | | | | anterior wall HI | | | | | | (HCC); GUEST ATTENDANT-D (AICD) | | | | | | [...] thrombus, recent status post stents to , GUEST ATTENDANT-D placement in [facility] on 10/17/2017. He was last seen 09/02/17 [...] ventricular fibrillation and required CPR in the color laboratory technician. He was then transferred to [facility] where he received a GUEST ATTENDANT-D for EF 30-35% and EP study with [...] HI CAD (coronary artery disease) Ischemic cardiomyopathy Pulmonary edema CURRENT MEDICATIONS Current Outpatient Prescriptions Medication Sig Dispense Refill aspirin 81 MG tablet Take 81 mg by mouth Daily. atorvaSTATin (LIPITOR) 40 mg tablet Take 40 mg by mouth nightly. carvedilol (COREG) 3.125 mg tablet Take 1 tablet by mouth 2 times daily (with breakfast & dinner). 60 tablet Cholecalciferol (VITAMIN D-3) 02196 units CAPS Take by mouth Once a [...] RESULTS reviewed during visit today primarily from [facility]: LIPID No results found for: [...] PLTEX 194 03/15/2017 I reviewed records from [facility] for hospitalization,including H&P, Discharge Summary and lab r eports on 10/2017 and records from [facility] from hospitalization on 09/2017 w hich is [...] medical care for ischemic cardiomyopathy S/P [employer] GUEST ATTENDANT-D 10-16-17 Dr Darby, [facility] Above data and testing is reviewed this [...] norepin ephrine). [facility] and [facility] were on divert. Patient wasn't transferred [...] there is no significant changes C. At [facility], patient had another STEMI [...] to follow up closely with a local disability representative in [place]. He wias dis chargeed with a LifeVest [...] we will transfer the patie nt to [facility] for consideration of urgent coronary revascularization. [...] He is in a class II of [place] [employer] functional cl ass. Heart failure [...] myocardium in these regions. C. S/P [employer] GUEST ATTENDANT-D 10-16-17 Dr Darby, [facility] 3. Ventricular tachycardia: A. Electrophysiology Study 10/16/17 [...] a week ago. This was after his HI and a t the same time patient was having ventricular tachycardia. He was initiated on amiodarone and then discontinued before discharge. The plan is to monitor through his device and see i f this is a problem that needs to be addressed. Patient is not on anticoagulation he was le ft that way from [facility]. Patient has had several [...] this chart may have been created with [employer] voice recognition software. Occasi onal wrong-word or [...] | 03/12/ | Office | Nephrology | [facility], | | | 2019 | Visit | | ADARSH [address] | | | | | | [address] [facility] | | | | | | [address] [place] | | | | | | [address] | | | | | | | | +--------+ + + + + | 04/16/ | Office | Cardiology | Alin Anderson | | | 2019 | Visit | | MD Cheryl Arreguin | | | | | | [address] | | | | | | [place] [address] | | | | | | [phone] | | | | | | | [...] [place] | | | | | | [address] | | | | | | | [...] involving | | | | | | nisqually coronary | | | | | | artery of nisqually | | | | | | heart [...] MD | | | | | | ([id number]) on 10/19/2017 | | | | | [...] + + | Coronary artery disease involving nisqually coronary artery of nisqually heart without | | angina pectoris | + + | Acute anterior wall HI (HCC) Acute myocardial infarction of other anterior wall, | | episode of care unspecified | + + | GUEST ATTENDANT-D (GABBI) [employer] 10/16/17 EULOGIO [place] | + + | Tachycardia Tachycardia, unspecified | + + documented in this encounter
--- OUTSIDE RECORDS SUMMARY | ~2020-03-04 | XMS | Encounter Summary ---
Demographics + + + | Address | [address] | | | [place] [address] | + + + | Home Phone [...] [place] | | | | | [address] | | + + + + + Care Team Providers + +------+ + | Care Ship Boat Or Barge Mate Name | Role | Phone | + [...] W | | | | | [place], | [place], | | | | | [place] [address] | [place] [address] | | | | | [phone] | [phone] | | | | | | | [...] [place] | | | | | | [address] | | | | | | | | +--------+ + + + + | 04/16/ | Office | Cardiology | Alin Anderson | | | 2019 | Visit | | MD [address] | | | | | | [address] | | | | | | [place] [address] | | | | | | [phone] | | | | | | | [...] [place] | | | | | | [address] | | | | | | | | +--------+ + + + + documented as of this encounter Visit Diagnoses Not on filedocumented in this encounter"
--- OUTSIDE RECORDS SUMMARY | ~2020-03-04 | XMS | Encounter Summary ---
Demographics + + + | Address | [address] | | | [place] [address] | + + + | Home Phone [...] [place] | | | | | [address] | | + + + + + Care Team Providers + +------+ + | Care Weave Defect Charting Clerk Name | Role | Phone | [...] | systolic CHF | CHRISTIE F | [place], [place] | | | | | (congestive | [place], [place] | [address] Phone: | | | | | heart | [phone] | | | | | | failure) [...] + + | 10/28/ | Office | [facility] EP | Alin Ayoub | Ischemic | | 2020 | Visit | CARDIOLOGY [place] | MD [address] | cardiomyopathy | | | | [address] | [address] [place]STIE F | (Primary Dx); Status | | | | [place], [place] | [place] [address] | post internal | | | | [address] | [phone] | cardiac | | | | [phone] | | defibrillator | | | | | | procedure; Atrial | | | | | | flutter, unspecified | | | | | | type ([facility]); | | | | | | Thrombus of left | | | | | | atrial appendage; | | | | | | Ventricular | | | | | | tachycardia ([facility]); | | | | | | Sleep [...] chronic kidney disease (HCC) 03/10/2019 Atrial flutter ([facility]) seen 09/24 as per chart - atypical [...] LE Angio; Surgeon: Khurram Canas MD; Location: [facility] CV LAB ANGIOPLASTY Left 05/19/2018 Procedure: CV PTCA Only; Surgeon: Khurram Canas MD; Location: [facility] CV LAB CARDIAC CATHERIZATION N/A 10/03/2017 Procedure: CV Cor Angio; Surgeon: Delmer Dai MD; Location: [facility] CV LAB CARDIAC CATHERIZATION N/A 03/15/2017 Procedure: CV Cor Angio; Surgeon: Monse Ross MD; Location: [facility] CV LAB CARDIAC CATHERIZATION Left 05/19/2018 Procedure: CV RHC; Surgeon: Khurram Canas MD; Location: [facility] CV LAB CARDIAC CATHERIZATION Left 05/19/2018 Procedure: CV FFR/iFR; Surgeon: Khurram Canas MD; Location: [facility] CV LAB CARDIAC CATHERIZATION Left 05/19/2018 LM distal ISR, LAD ? stenosis, Cx 95-99% s/p PTCA, RCA LI ELBOW SURGERY Left GALLBLADDER SURGERY LEFT VENTRICULAR ASSIST DEVICE Right 05/19/2018 Procedure: CV PERC [facility] CIRC SUPPORT; Surgeon: Khurram Canas MD; Location: [facility] CV LAB NASAL SEPTUM SURGERY TONSILLECTOMY TRANSTHORACIC ECHOCARDIOGRAM 10/2018 EF 25-30%, anterior/anteroseptal/inferoseptal/inferior AK, mild TR, tr MR, mod LA dil, mil d RA dil, RVSP 26 UPPER GASTROINTESTINAL ENDOSCOPY N/A 10/05/2017 Procedure: EGD; Surgeon: Terry Weir MD; Location: [facility] MEDICAL PROCEDURE UNIT Family History Problem [...] dinner). 180 tablet 3 Cholecalciferol (VITAMIN D-3) 95847 units CAPS Take 50,000 Units by mouth [...] a biventricular pacemaker/ICD implanted in 2017 in [place] by his account. His device was interrogated [...] | | | | | [place] [address] | | | | | | [phone] | | | | | | | | +--------+ + + + + | 04/16/ | Procedure | Cardiology | | | | 2019 | visit | | | | +--------+ + + + + | 04/25/ | Office | Cardiology | Rocio Pearl, | | | 2019 | Visit | | MD [address] | | | | | | [place] [facility] [place] | | | | | | [address] | | | | | | | [...] MD | | | | | | ([id number]) on 10/28/2019 | | | | | [...]
--- OUTSIDE RECORDS SUMMARY | ~2020-03-04 | XMS | Encounter Summary ---
Demographics + + + | Address | [address] | | | [place] [address] | + + + | Home Phone [...] [place], [place] | | | | | [address] | | + + + + + Care Team Providers + +------+ + | Care Iron And Steel Work Supervisor Name | Role | Phone | [...] | | involving | [address] | [place] | | | | | [place] | [address] | [place] | | | | | coronary | [address] | [address] | | | | | artery of | Phone: | Phone: | | | | | [place] heart | [phone] | [phone] | | | | | without | Fax: | Fax: | | | | | angina | [phone] | [phone] | | | | | pectoris | | | +--------+ + + + + + Encounter Details +--------+---------+ + + + | Date | Type | Department | Care Team | Description | +--------+---------+ + + + | 09/28/ | Office | [facility] | Carolina Lindarisa, | Coronary artery | | 2019 | Visit | MED [facility] CARDIAC | MD [address] | disease, angina | | | | REHABILITATION [address] | [place], | presence | | | | [place] | [place] [address] | unspecified, | | | | [place] [address] | [phone] | unspecified vessel | | | | [phone] | | or lesion type, | | | | | | unspecified whether | | | | | | [place] or | | | | | | [...] Gael Ortega - 09/28/2018 10:00 AM PST [facility]ATION [address] [place] [address] Cardiac Rehab Date: 09/28/2018 Patient Information Patient Name: Bob Will Date of : 1955 Age: 62 y.o. Encounter Diagnoses Code Name Primary? I25.10 Coronary artery disease, angina presence unspecified, unspecified vessel or lesi on type, unspecified whether [place] or transplanted heart Yes Z98.61 Post PTCA [...] | | | | [address] [facility] | | | | | | [address] [place] | | | | | | [address] | | | | | | | | +--------+ + + + + | 04/16/ | Office | Cardiology | Alin Anderson | | | 2019 | Visit | | MD Cheryl Arreguin | | | | | | [address] | | | | | | [place] [address] | | | | | | [phone] | | | | | | | [...] [place] | | | | | | [address] | | | | | | | | +--------+ + + + + documented as of this encounter Visit Diagnoses + + | Diagnosis | + + | Coronary artery disease, angina presence unspecified, unspecified vessel or lesion | | type, unspecified whether point [place] ira or transplanted heart - Primary | + + | Post PTCA Postsurgical percutaneous transluminal coronary angioplasty status | + + documented in this encounter"
--- OUTSIDE RECORDS SUMMARY | ~2020-03-04 | XMS | Encounter Summary ---
Demographics + + + | Address | [address] | | | [place] [address] | + + + | Home Phone [...] [place] | | | | | [address] | | + + + + + Care Team Providers + +------+ + | Care Senior Technical Editor Name | Role | Phone | [...] Way [place], [place] | failure) ([facility]) | | | | [address] | [address] | (Primary Dx) | | | | [place] [address] | | | | | | [phone] | | | +--------+---------+ + + + [...] [place] | | | | | | [address] | | | | | | | | +--------+ + + + + | 04/16/ | Office | Cardiology | Alin Anderson | | | 2019 | Visit | | MD Cheryl Arreguin | | | | | | [address] | | | | | | [place] [address] | | | | | | [phone] | | | | | | | [...] [place] | | | | | | [address] | | | | | | | | +--------+ + + + + documented as of this encounter Visit Diagnoses + + | Diagnosis | + + | Chronic systolic CHF (congestive heart failure) (HCC) - Primary | + + documented in this encounter"
--- OUTSIDE RECORDS SUMMARY | ~2020-03-04 | XMS | Encounter Summary ---
Demographics + + + | Address | [address] | | | [place] [address] | + + + | Home Phone [...] [place] | | | | | [address] | | + + + + + Care Team Providers + +------+ + | Care Densitometrist Name | Role | Phone | + [...] Way [place], [place] | failure) ([facility]) | | | | [address] | [address] | | | | | [place] [address] | | | | | | [phone] | | | +--------+---------+ + + + [...] Gael Ortega - 08/30/2019 8:[address] [facility] CARDIAC RE[facility]ILITATION [address] [facility] [address] Cardiac Rehab Date: 08/30/2019 Patient Information Patient Name: Bob Will Date of : 1955 Age: 63 y.o. Encounter Diagnoses Code Name Primary? I50.22 Chronic systolic CHF (congestive heart failure) ([facility]) Number of Visits Approved: 34 kx Taken [...] [place] | | | | | | [id number] | | | | | | | | +--------+ + + + + | 04/16/ | Office | Cardiology | Alin Anderson | | | 2019 | Visit | | MD [address] | | | | | | [address] | | | | | | [place] [address] | | | | | | [phone] | | | | | | | [...] [place] | | | | | | [address] | | | | | | | | +--------+ + + + + documented as of this encounter Visit Diagnoses + + | Diagnosis | + + | Chronic systolic CHF (congestive heart failure) (HCC) | + + documented in this encounter"
--- OUTSIDE RECORDS SUMMARY | ~2020-03-04 | XMS | Encounter Summary ---
Demographics + + + | Address | [address] | | | [place] [address] | + + + | Home Phone [...] [place], [place] | | | | | [address] | | + + + + + Care Team Providers + +------+ + | Care Recreational Facilities Motel Manager Name | Role | Phone | [...] [address] | | | | | [place], | [place], | | | | | [place] [address] | [place] [address] | | | | | [phone] | [phone] | | | | | | | [...] | | | | | [address] [facility] [place] | | | | | | [address] | | | | | | | | +--------+ + + + + | 04/16/ | Office | Cardiology | Alin Anderson | | 2019 | Visit | | MD [address] | | | | | | [address] | | | | | | [place] [address] | | | | | | [phone] | | | | | | | [...] [place] | | | | | | [address] | | | | | | | | +--------+ + + + + documented as of this encounter Visit Diagnoses Not on filedocumented in this encounter"
--- OUTSIDE RECORDS SUMMARY | ~2020-03-04 | XMS | Encounter Summary ---
Demographics + + + | Address | [address] | | | [place] [address] | + + + | Home Phone [...] [place] | | | | | [address] | | + + + + + Care Team Providers + +------+ + | Care Gum Maker Name | Role | Phone | [...] | | | heart | [place], | [place] | | | | | failure | [place] [address] | [place] | | | | | (HCC) | Phone: | [address] | | | | | I50.22 | [phone] | Phone: | | | | | Procedures | Fax: | [phone] | | | | | Cardiac | [phone] | Fax: | | | | | Rehab | | [phone] | +--------+--------+ + + + + Encounter [...] | | | [address] | [address] | | | | | [place] [address] | | | | | | [phone] | Maria Esther Fields RN | | [...] Fields RN - 06/02/2019 11:30 AM PDT [facility]ATION [address] [place] [address] Cardiac Rehab Evaluation Date: 06/02/2019 Patient Information [...] appendage thrombus, recent status post stents to, VALLEZ FILTER OPERATOR-D placement in [facility] on 10/17/2017. Patient's states that his [...] Healthy Dietary Education Date: 06/02/19 -Referral to Blocker And Cutter Contact Lens: Date: -DVD: Healthy Eating For Life Date: [...] exercise until stable. Date: Range: -Referral to Environmental Laboratory Technician Date: Education Points listed below- Date Completed: [...] | 03/12/ | Office | Nephrology | [place], | | | 2019 | Visit | | ADARSH [address] | | | | | | [address] | | | | | | [address] [place] | | | | | | [address] | | | | | | | | +--------+ + + + + | 04/16/ | Office | Cardiology | Alin Anderson | | | 2019 | Visit | | MD [address] | | | | | | [address] | | | | | | [place] [address] | | | | | | [phone] | | | | | | | [...] [place] | | | | | | [address] | | | | | | | | +--------+ + + + + documented as of this encounter Visit Diagnoses + + | Diagnosis | + + | Chronic systolic CHF (congestive heart failure) (HCC) | + + documented in this encounter
--- OUTSIDE RECORDS SUMMARY | ~2020-03-04 | XMS | Encounter Summary ---
Demographics + + + | Address | [address] | | | [place] [address] | + + + | Home Phone [...] [place], [place] | | | | | [address] | | + + + + + Care Team Providers + +------+ + | Care Usability Architect Name | Role | Phone | [...] [address] | | | | | [place], | [place], | | | | | [place] [address] | [place] [address] | | | | | [phone] | [phone] | | | | | | | [...] [place] | | | | | | [address] | | | | | | | | +--------+ + + + + | 04/16/ | Office | Cardiology | Alin Anderson | | | 2019 | Visit | | MD Cheryl Arreguin | | | | | | [address] | | | | | | [place] [address] | | | | | | [phone] | | | | | | | [...] [place] | | | | | | [address] | | | | | | | [...]
--- OUTSIDE RECORDS SUMMARY | ~2020-03-04 | XMS | Encounter Summary ---
Demographics + + + | Address | [address] | | | [place] [address] | + + + | Home Phone [...] [place], [place] | | | | | [address] | | + + + + + Care Team Providers + +------+ + | Care Mushroom Press Operator Name | Role | Phone [...] Coronary | MD Lauren | [address] | | | | | artery | [address] | [place], | | | | | disease, | [address] | [place] | | | | | angina | [place], | [address] | | | | | presence | [place] [address] | Phone: | | | | | unspecified, | Phone: | [phone] | | | | | unspecified | [phone] | Fax: | | | | | vessel or | Fax: | [phone] | | | | | lesion type, | [phone] | | | | | | unspecified | | | | | | | whether | | | | | | | [place] or | | | | | | [...] discharge | [address] | [address] | | | | | follow-up | CHARLA ALICEA | [place], | | | | | Acute | [place], [place] | [place] | | | | | anterior | [address] | [address] | | | | | wall UT | Phone: | Phone: | | | | | ([facility]) | [phone] | [phone] | | | | | | Fax: | Fax: | | | | | | [phone] | [phone] | +--------+--------+ + + + + Encounter Details +--------+---------+ + + + | Date | Type | Department | Care Team | Description | +--------+---------+ + + + | 05/04/ | Office | [facility] | Lauren Figueroa, | Coronary artery | | 2017 | Visit | CARDIOLOGY [address] | [address] [facility] | disease, angina | | | | [address] [place], | [place], | presence | | | | [place] [address] | [place] [address] | unspecified, | | | | [phone] | [phone] | unspecified vessel | | | | | | or lesion type, | | | | | | unspecified whether | | | | | | [place] or | | | | | | [...] encounter Progress Notes Lauren Figuerao MD - 05/04/2017 3:30 PM PDTFormatting of this note might be different f rom the original. PATIENT NAME: Ron Will : 1955: AGE: 61 y.o. REFERRED BY: Marianne Foster PRIMARY CARE: DO JEFF Mckinney PATIENT OFFICE VISIT Date of Service: 05/04/17 HISTORY OF PRESENT ILLNESS: Ron Will is a 61 y.o. male with a history of coronary artery disease post recent anterior wall UT, post PTCA and stents of the left main, LAD and LCx on 03/15/17, cardiac shoc k, left atrial appendage thrombus. He is being seen today for CAD. Patient was in his usual state of health until 03/15/17 when he presented to [facility] in [place] with acute anterior wall UT. He underwent emergent stenting of the distal left main, LAD and LCx by which was complicated with dissection/thrombosis of left main, causing cardiogenic shock requiring IABP, pressor (dopamine, norepinephrine). [facility] and [facility] were on divert. Patient wasn't transferred to [facility], [facility]. At [facility], patient had [...] to follow up closely with a local garment cutter in [place]. He wias dischargeed with a LifeVest for [...] Active Problem List Diagnosis Acute anterior wall UT CAD (coronary artery disease) MEDICAL, SURGICAL, AND PERSONAL HISTORY Past Surgical History: Procedure Laterality Date CARDIAC CATHERIZATION N/A 03/15/2017 Procedure: CV Cor Angio; Surgeon: Monse Ross MD; Location: [facility] CV LAB ELBOW [...] a depressed mood. ECG: Sinus rhythm, anteroseptal UT, age undetermined. LAB RESULTS: LIPID No results [...] and lab reports on 03/15/2017. Refer to garment cutter. ASSESSMENT: 1. Coronary artery disease presented with [...] shock requiring IABP, pressor (dopamine, norepinephrine) . [facility] and [facility] were on divert. Patient wasn't transferred to [facility], [facility]. B. Echocardiogram 03/17/2017 shows LV ejection fraction is severely decreased, visually est imated left ventricular ejection fraction is 20 - 25%, left ventricular systolic thickening is segmentally abnormal, mildly reduced RV systolic function. Normal RV size, no significant valvular abnormalities seen, compared to the most recent exam dated, 03/15/2017, there is n o significant changes C. [facility] [...] to follow up closely with a local garment cutter in [place]. He wias dischargeed wi th a LifeVest [...] He is in a class I of [employer] functional class. There is no fluid retention on physical examin ation. 2. Toxic metabolic encephalopathy A. Problem completely resolved. 3. Left atrial appendage thrombus A. Noted on MARKY in the [place] during ECMO decannulation. Completedheparin gtt bridge 03/29 to therapeutic warfarin. 4. Normocytic anemia 5. Thrombocytosis A. Problem was resolved at [facility]. PLAN: 1. I spend time at length [...] reviewed and edited this note. Heather Cui Venetian Blind Installer 05/04/2017 I, Lauren Figueroa MD, personally performed the services described in this documentation, as scribed in my presence and it is both accurate and complete. Heather Cui, Med Ass t 05/04/2017 15:35 Electronically signed by: Lauren Figueroa MD [facility] 05/04/2017 Portions of this chart may have been created with [employer] voice recognition software. Occasi onal wrong-word or [...] [place]ELL | | | | | | [id number] | | | | | | | | +--------+ + + + + | 04/16/ | Office | Cardiology | Alin Anderson | | | 2019 | Visit | | MD [address] | | | | | | [address] | | | | | | [place] [address] | | | | | | [phone] | | | | | | | [...] [place] | | | | | | [address] | | | | | | | [...] whether | | | | | | [place] or | | | | | | [...] whether | | | | | | [place] or | | | | | | [...] Room Number J Patient Number | Sania [facility] | | [id number] Date of Study 05/07/2017 Visit Number | - IMAGING | | [id number] Referring | | | Physician CAROLINA AGUILAR Number Date of 1955 | | | Airplane Rigger CHRISTEN LILLY, | | | [place] Age | | | 61 year(s) Interpreting | | | CAROLINA AGUILAR | | | Scrap Bunch Maker LAUREN FIGUEROA MD Gender | | | Male Nurse | | | Stress Airport Clerk Procedure Type of Study TTE procedure: | [...] Volume: 51.69 ml | | | EF Kputpwqyt44% Left | | | Ventricle Diastolic Dimension: [...] Volume: 51.69 ml | | | EF Ncriodmiu15% | | | | | | Left [...] Room Number J Patient | | Number [id number] Date of Study 05/07/2017 Visit Number [id number] | | Referring Physician CAROLINA AGUILAR Number Date of | | 1955 Airplane Rigger CHRISTEN LILLY, | | [place] Age 61 year(s) Interpreting | | CAROLINA AGUILAR Scrap Bunch Maker LAUREN | | MD CAROLINA Gender Male [...] LA Volume: 51.69 ml | | EF Dkhvbkolg16% Left Ventricle Diastolic Dimension: 4.6 cm | [...] LA Volume: 51.69 ml | | EF Ijlvdlqvx79% | | | | Left Ventricle | [...] [address] | [place] | [phone] | | [facility] | | [address] | | | - IMAGING | | [...] MD | | | | | | ([id number]) on 05/05/2017 | | | | | [...] or lesion | | type, unspecified whether [place] or transplanted heart - Primary | + + documented in this encounter
--- OUTSIDE RECORDS SUMMARY | ~2020-03-04 | XMS | Encounter Summary ---
Demographics + + + | Address | [address] | | | [place] [address] | + + + | Home Phone [...] [place], [place] | | | | | [address] | | + + + + + Care Team Providers + +------+ + | Care Truck Driver Teamster Name | Role | Phone | + [...] | | involving | [address] | [place] | | | | | wiyot | [address] | [place] | | | | | coronary | [address] | [address] | | | | | artery of | Phone: | Phone: | | | | | wiyot heart | [phone] | [phone] | | | | | without | Fax: | Fax: | | | | | angina | [phone] | [phone] | | | | | pectoris | | | +--------+ + + + + + Encounter Details +--------+---------+ + + + | Date | Type | Department | Care Team | Description | +--------+---------+ + + + | 09/02/ | Office | [facility] | Carolina Lindarisa, | Coronary artery | | 2018 | Visit | MED CTR CARDIAC | MD [address] | disease, angina | | | | REHABILITATION [address] | [address], | presence | | | | [address] [place] | [place] [address] | unspecified, | | | | [place] [address] | [phone] | unspecified vessel | | | | [phone] | | or lesion type, | | | | | | unspecified whether | | | | | | wiyot or | | | | | | [...] Gael Woo - 09/02/2018 10:00 AM PST [facility] [address] [place] [address] Cardiac Rehab 30 Day Review Date: 09/02/2018 Patient Information Patient Name: Bob Will Date of : 1955 Age: 62 y.o. Referring Provider: Randy Figueroa MD Encounter Diagnoses Code Name Primary? I25.10 Coronary artery disease, angina presence unspecified, unspecified vessel or lesi on type, unspecified whether wiyot or transplanted heart Yes Z98.61 Post PTCA Cardiac Rehab Phase II Leon atment Plan Bob Will (Bob) is a 62 y.o. 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 He has recently [...] Healthy Dietary Education Date: 08/03/18 -Referral to Esthetician/Skin Therapist: Date: -DVD: Healthy Eating For Life Date: [...] exercise until stable. Date: Range: -Referral to Reefer Truck Driver Date: Education Points listed below- Date Completed: [...] [place] | | | | | | [address] | | | | | | | | +--------+ + + + + | 04/16/ | Office | Cardiology | Alin Anderson | | | 2019 | Visit | | MD [address] | | | | | | [address] | | | | | | [place] [address] | | | | | | [phone] | | | | | | | | +--------+ + + + + | 04/16/ | Procedure | Cardiology | | | | 2019 | visit | | | | +--------+ + + + + | 04/25/ | Office | Cardiology | Rocio Pearl, | | | 2019 | Visit | | MD Cheryl [address] | | | | | | [place] | | | | | | [address] | | | | | | | | +--------+ + + + + documented as of this encounter Visit Diagnoses + + | Diagnosis | + + | Coronary artery disease, angina presence unspecified, unspecified vessel or lesion | | type, unspecified whether wiyot or transplanted heart - Primary | + + | Post PTCA Postsurgical percutaneous transluminal coronary angioplasty status | + + documented in this encounter
--- OUTSIDE RECORDS SUMMARY | ~2020-03-04 | XMS | Encounter Summary ---
Demographics + + + | Address | [address] | | | [place] [address] | + + + | Home Phone [...] [place], [place] | | | | | [address] | | + + + + + Care Team Providers + +------+ + | Care Pierogi Maker Name | Role | Phone | [...] + | 08/18/ | Telephone | [facility] | Jenny, | Blood Pressure | | 2017 | | CARDIOLOGY [address] | Hansa FUR TAILOR [address] | | | | | [place], | [place], | | | | | [place] [address] | [place] [address] | | | | | [phone] | [phone] | | | | | | | [...] mg twice day, which is where the [place] team wanted him. I informed him that I would notify Hansa ALTAMIRANO of this ..........................................Alia Cheng, ALFONSO on 08/24/18 at 13:38 elephone [facility] RN - 08/24/2018 1:30 PM PSTLeft message at first cell number for pat ient to return my call. ...........................................Lilian Machado RN on at 13:30 elephone Suzanne Rehman RN - 08/23/2018 10:57 AM PSTLeft message on voicemail to return annie yocasta ..........................................Suzanne Cheng RN on 08/23/18 at 10:58 elephone [facility] Center[facility]ny Gao RN - 08/19/2018 10:38 AM PSTCalled and left a message for patient to return call. ...........................................RONNY CHAPMAN RN on 08/19/18 at 1 0:39 elephone Encounter - Hansa Alvarado ARNP - 08/18/2018 4:03 PM PSTContinue with up titrating Metoprolol as ordered by [place] heart team Electronically signed by: ADARSH Stevens [...] [place] | | | | | | [address] | | | | | | | | +--------+ + + + + | 04/16/ | Office | Cardiology | Alin Anderson | | | 2019 | Visit | | MD Cheryl Arreguin | | | | | | [address] | | | | | | [place] [address] | | | | | | [phone] | | | | | | | [...] [place] | | | | | | [address] | | | | | | | | +--------+ + + + + documented as of this encounter Visit Diagnoses Not on filedocumented in this encounter"
--- OUTSIDE RECORDS SUMMARY | ~2020-03-04 | XMS | Encounter Summary ---
Demographics + + + | Address | [address] | | | [place] [address] | + + + | Home Phone [...] [place] | | | | | [address] | | + + + + + Care Team Providers + +------+ + | Care Geological Specialist Name | Role | Phone | [...] + | 09/05/ | Implant | [facility] | Rahulmendycathy Zoëleo, | Implantable | | 2019 | Monitor | CARDIOLOGY [address] | [address] | defibrillator | | | | [place], | [place], | reprogramming/check | | | | [place] [address] | [place] [address] | (Primary Dx); INFORMATION RESOURCES MANAGER-D | | | | [phone] | [phone] | (AICD) Medtronic | | | | | | 10/16/17 MIMENDY Darby; | | | | | | [...] [employer] documentation and remote PDF scanned into [employer] for remote interrogation re sults. Data collected [...] [place] | | | | | | [address] | | | | | | | | +--------+ + + + + | 04/16/ | Office | Cardiology | Alin Anderson | | | 2019 | Visit | | MD Cheryl Arreguin | | | | | | [address] | | | | | | [place] [address] | | | | | | [phone] | | | | | | | [...] [place] | | | | | | [address] | | | | | | | [...] results section. | | | | | INFORMATION RESOURCES MANAGER-D (AICD) | | | | | [...] scanned into | | | [facility] for remote interrogation results. Data collected by [...] of Remote Interrogation: | | 07/19/19Refer to [employer] documentation and remote PDF scanned into [employer] for remote | | interrogation results. Data [...] implantable cardiac defibrillator | + + | INFORMATION RESOURCES MANAGER-D (GABBI) Imani 10/16/17 EULOGIO Darby | + + | Ischemic cardiomyopathy Other specified forms of chronic ischemic heart disease | + + | Chronic systolic CHF (congestive heart failure) (HCC) | + + | Ventricular tachycardia (HCC) Paroxysmal ventricular tachycardia | + + documented in this encounter"
--- OUTSIDE RECORDS SUMMARY | ~2020-03-04 | XMS | Encounter Summary ---
Demographics + + + | Address | [address] | | | [place] [address] | + + + | Home Phone [...] [place], [place] | | | | | [address] | | + + + + + Care Team Providers + +------+ + | Care Last Cleaner Name | Role | Phone | [...] Provider Unknown | | | | | [place], [place] | [phone] | | | | | [address] | (Fax) | | | | | [phone] | | | +--------+ + + + [...] [place] | | | | | | [address] | | | | | | | | +--------+ + + + + | 04/16/ | Office | Cardiology | Alin Anderson | | | 2019 | Visit | | MD Cheryl Arreguin | | | | | | [address] | | | | | | [place] [address] | | | | | | [phone] | | | | | | | [...] [place] | | | | | | [address] | | | | | | | [...]
--- OUTSIDE RECORDS SUMMARY | ~2020-03-04 | XMS | Encounter Summary ---
Demographics + + + | Address | [address] | | | [place] [address] | + + + | Home Phone [...] [place] | | | | | [address] | | + + + + + Care Team Providers + +------+ + | Care Cadd Operator Name | Role | Phone | [...] | (moderate) (HCC) | | | | [place], [place] | [address] [place], [place] | (Primary Dx); Anemia | | | | [address] | [address] | in stage 3 chronic | | | | [phone] | | kidney disease (HCC) | +--------+ [...] for nephrology appt on 06/06/19 sent to [facility]. documented in this en counter Plan of [...] [place] | | | | | | [address] | | | | | | | | +--------+ + + + + | 04/16/ | Office | Cardiology | Alin Anderson | | | 2019 | Visit | | MD [address] | | | | | | [address] | | | | | | [place] [address] | | | | | | [phone] | | | | | | | | +--------+ + + + + | 04/16/ | Procedure | Cardiology | | | | 2019 | visit | | | | +--------+ + + + + | 04/25/ | Office | Cardiology | Rocio Pearl, | | | 2019 | Visit | | MD Cheryl [address] | | | | | | [address] [place], [place] | | | | | | [address] | | | | | | | [...]
--- OUTSIDE RECORDS SUMMARY | ~2020-03-04 | XMS | Encounter Summary ---
Demographics + + + | Address | [address] | | | [place] [address] | + + + | Home Phone [...] [place], [place] | | | | | [address] | | + + + + + Care Team Providers + +------+ + | Care Production Estimator Name | Role | Phone | + +------+ + PCP | Unavailable | + +------+ + Encounter Details +--------+---------+ + + + | Date | Type | Department | Care Team | Description | +--------+---------+ + + + | 04/27/ | Office | [facility] | Randy Figueroa, | Coronary artery | | 2018 | Visit | MED CTR CARDIAC | MD [address] | disease involving | | | | REHABILITATION [address] | [address], | [place] coronary | | | | [address] [place] | [place] [address] | artery of [place] | | | | [place] [address] | [phone] | heart without angina | | | | [phone] | | pectoris (Primary | | | [...] this encounter Progress Notes John Paul-Cheri Kendrick, GAUGER CHIEF DELIVERY - 04/27/2018 11:00 AM PDT [facility] [address] [facility] [address] Cardiac Rehab Date: 04/27/2018 Patient Information Patient Name: Bob Will Date of : 1955 Age: 62 y.o. Encounter Diagnoses Code Name Primary? I25.10 Coronary artery disease involving [place] coronary artery of [place] heart without angina pectoris Yes Number of [...] | | | | | | [facility] | | | | | | [address] [place] | | | | | | [address] | | | | | | | | +--------+ + + + + | 04/16/ | Office | Cardiology | Alin Anderson | | 2019 | Visit | | MD Cheryl Arreguin | | | | | | [address] | | | | | | [place] [address] | | | | | | [phone] | | | | | | | | +--------+ + + + + | 04/16/ | Procedure | Cardiology | | | | 2019 | visit | | | | +--------+ + + + + | 04/25/ | Office | Cardiology | Rocio Pearl, | | | 2019 | Visit | | [address] | | | | | | [facility] [place] | | | | | | [address] | | | | | | | | +--------+ + + + + documented as of this encounter Visit Diagnoses + + | Diagnosis | + + | Coronary artery disease involving [place] coronary artery of [place] heart without | | angina pectoris - Primary | + + documented in this encounter"
--- OUTSIDE RECORDS SUMMARY | ~2020-03-04 | XMS | Encounter Summary ---
Demographics + + + | Address | [address] | | | [place] [address] | + + + | Home Phone [...] [place] | | | | | [address] | | + + + + + Care Team Providers + +------+ + | Care Money Counter Name | Role | Phone | + [...] [place], [place] | | | | | [address] | [address] | | | | | [phone] | | | +--------+ + + + [...] | | | [address] [facility] | | | | | | [address] [place] | | | | | | [address] | | | | | | | | +--------+ + + + + | 04/16/ | Office | Cardiology | Alin Anderson | | | 2019 | Visit | | MD Cheryl Arreguin | | | | | | [address] | | | | | | [place] [address] | | | | | | [phone] | | | | | | | [...] [place] | | | | | | [address] | | | | | | | [...]
--- OUTSIDE RECORDS SUMMARY | ~2020-03-04 | XMS | Encounter Summary ---
Demographics + + + | Address | [address] | | | [place] [address] | + + + | Home Phone [...] [place] | | | | | [address] | | + + + + + Care Team Providers + +------+ + | Care Data Integration Architect Name | Role | Phone | [...] | | | heart | [place], | [place] | | | | | failure | [place] [address] | [address] | | | | | (HCC) | Phone: | [address] | | | | | I50.22 | [phone] | Phone: | | | | | Procedures | Fax: | [phone] | | | | | Cardiac | [phone] | Fax: | | | | | Rehab | | [phone] | +--------+--------+ + + + + Encounter [...] | | | [address] | [address] | | | | | [place] [address] | | | | | | [phone] | | | +--------+---------+ + + + [...] of this encounter Progress Notes Kathy Garcia, MODELING ANALYST - 06/23/2019 12:00 PM PDTFormatting of this note might be different f rom the original. [facility] CARDIAC REHABILITATION [address] [place] [address] Cardiac Rehab Date: 06/23/2019 Patient Information Patient [...] | | | | | [place] [address] | | | | | | [phone] | | | | | | | [...] [place] | | | | | | [address] | | | | | | | | +--------+ + + + + documented as of this encounter Visit Diagnoses + + | Diagnosis | + + | Chronic systolic CHF (congestive heart failure) (HCC) | + + documented in this encounter"
--- OUTSIDE RECORDS SUMMARY | ~2020-03-04 | XMS | Encounter Summary ---
Demographics + + + | Address | [address] | | | [place] [address] | + + + | Home Phone [...] [place] | | | | | [address] | | + + + + + Care Team Providers + +------+ + | Care Vice President Tax Name | Role | Phone | + +------+ + | Amy Olivares MD | PCP | | + +------+ + Reason for Visit + + + | Reason | Comments | + + + | Device Check | MDT POEM WRITER-D in office w/ zohaib | | (In-office) | | + + + Encounter Details +--------+ + + + + | Date | Type | Department | Care Team | Description | +--------+ + + + + | 07/25/ | Procedure | [facility] | | POEM WRITER-D (AICD) | | 2019 | visit | CARDIOLOGY [place] | | Medtronic 10/16/17 | | | | [address] | | EULOGIO Darby | | | | [place], [place] | | (Primary Dx) | | | | [address] | | | | | | [phone] | | | +--------+ + + + [...] as of this encounter Procedure Elsa Johnson, Warehouse Order Selector - 07/25/2019 2:30 PM PSTAssociated Order(s): DEVICE INT ERROGATIONProcedure(s): DEVICE INTERROGATIONPre-Procedure Diagnose(s): Biventricular ICD (im plantable cardioverter-defibrillator) in placeDevice interrogation done by Teresita Anderson Any events or changes listed in office note. See device data attached to scheduled encounter for additional details. sole buffer: Elsa Romero, Device Clinic documented in this [...] F | | | | | | [place] [address] | | | | | | [phone] | | | | | | | | +--------+ + + + + | 04/16/ | Procedure | Cardiology | | | | 2019 | visit | | | | +--------+ + + + + | 04/25/ | Office | Cardiology | Rocio Pearl, | | | 2019 | Visit | | MD Cheryl URENA | | | | | | [address] [place], [place] | | | | | | [address] | | | | | | | | +--------+ + + + + documented as of this encounter Procedures + +--------+ + + + | Procedure Name | Priori | Date/Time | Associated Diagnosis | Comments | | | ty | | | | + +--------+ + + + | DEVICE INTERROGATION | Routin | 07/26/2019 | POEM WRITER-D ([facility]) | Results for this | | | e | 12:00 AM | Medtronic 10/16/17 | procedure are in the | | | | PST | [facility] | results section. | + +--------+ + + + documented in this encounter Results Device Interrogation (07/26/2019 12:00 AM PST) + + + | Narrative | Performed At | + + + | Elsa Wilson | DONNA | | Nick Warehouse Order Selector 07/26/2019 8:15 AMDevice | | | interrogation done by Teresita Anderson Any events or changes listed in | | | office note. See device data attached to scheduled encounter for | | | additional details. sole buffer: Elsa Romero [facility] | | |See device data attached to scheduled encounter for additional | | |details. | | | | | |sole buffer: Elsa Romero [facility] | | + + + + + | Procedure Note | + + | Elsa Romero, Warehouse Order Selector - 07/25/2019 2:30 PM PST Device interrogation | | done by Teresita Ponce events or changes listed in office note.See device data attached | | to scheduled encounter for additional details. sole buffer: Elsa Romero [facility] | | | |See device data attached to scheduled encounter for additional details. | | | |sole buffer: Elsa Rom[facility] | + + [...]
--- OUTSIDE RECORDS SUMMARY | ~2020-03-04 | XMS | Encounter Summary ---
Demographics + + + | Address | [address] | | | [place] [address] | + + + | Home Phone [...] [place], [place] | | | | | [address] | | + + + + + Care Team Providers + +------+ + | Care Counter Intelligence Agent Name | Role | Phone | [...] + + | 06/21/ | Telephone | [facility] | Jenny, | Medication Refill | | 2017 | | CARDIOLOGY [address] | ADARSH Santo [address] | | | | | [place], | [place], | | | | | [place] [address] | [place] [address] | | | | | [phone] | [phone] | | | | | | | [...] evening). Dr Hester is not registered with [employer] and his insurance wi ll not pay [...] [place] | | | | | | [address] | | | | | | | | +--------+ + + + + | 04/16/ | Office | Cardiology | Alin Anderson | | | 2019 | Visit | | MD Cheryl Arreguin | | | | | | [address] | | | | | | [place] [address] | | | | | | [phone] | | | | | | | [...] [place] | | | | | | [address] | | | | | | | | +--------+ + + + + documented as of this encounter Visit Diagnoses Not on filedocumented in this encounter"
--- OUTSIDE RECORDS SUMMARY | ~2020-03-04 | XMS | Encounter Summary ---
Demographics + + + | Address | [address] | | | [place] [address] | + + + | Home Phone [...] [place], [place] | | | | | [address] | | + + + + + Care Team Providers + +------+ + | Care Seasonal Recruiter Name | Role | Phone | + [...] | | involving | [address] | [place] | | | | | [place] | [place] | [place] | | | | | coronary | [address] | [address] | | | | | artery of | Phone: | Phone: | | | | | [place] heart | [phone] | [phone] | | | | | without | Fax: | Fax: | | | | | angina | [phone] | [phone] | | | | | pectoris | | | +--------+ + + + + + Encounter Details +--------+---------+ + + + | Date | Type | Department | Care Team | Description | +--------+---------+ + + + | 08/19/ | Office | [facility] | Randy Figueroa, | Coronary artery | | 2018 | Visit | MED CTR CARDIAC | MD [address] | disease, angina | | | | REHABILITATION [address] | [place], | presence | | | | [address] [place] | [place] [address] | unspecified, | | | | [place] [address] | [phone] | unspecified vessel | | | | [phone] | | or lesion type, | | | | | | unspecified whether | | | | | | [place] or | | | | | [...] Gael Woo - 08/19/2018 10:[address] [facility] CARDIAC REHABILITATION [address] [place] [address] Cardiac Rehab Date: 08/19/2018 Patient Information Patient Name: Bob Will Date of : 1955 Age: 62 y.o. Encounter Diagnoses Code Name Primary? I25.10 Coronary artery disease, angina presence unspecified, unspecified vessel or lesi on type, unspecified whether [place] or transplanted heart Yes Z98.61 Post [...] [place] | | | | | | [address] | | | | | | | | +--------+ + + + + | 04/16/ | Office | Cardiology | Alin Anderson | | | 2019 | Visit | | MD Cheryl Arreguin | | | | | | [address] | | | | | | [place] [address] | | | | | | [phone] | | | | | | | [...] [place] | | | | | | [address] | | | | | | | | +--------+ + + + + documented as of this encounter Visit Diagnoses + + | Diagnosis | + + | Coronary artery disease, angina presence unspecified, unspecified vessel or lesion | | type, unspecified whether [place] or transplanted heart - Primary | + + | Post PTCA Postsurgical percutaneous transluminal coronary angioplasty status | + + documented in this encounter"
--- OUTSIDE RECORDS SUMMARY | ~2020-03-04 | XMS | Encounter Summary ---
Demographics + + + | Address | [address] | | | [place] [address] | + + + | Home Phone [...] [place], [place] | | | | | [address] | | + + + + + Care Team Providers + +------+ + | Care Hat Measurer Name | Role | Phone | [...] [address] | | | | | [place], | [place], | | | | | [place] [address] | [place] [address] | | | | | [phone] | [phone] | | | | | | | [...] PDTAwaiting lab results to be faxed from [facility] in [place]. Per Hansa. Plan is to continue with [...] [place]. BMP order will be faxed to [facility] in [place]. ........................................ ...RONNY CHAPMAN RN on 11/30/18 at 16:37 elephone Encounter - Hansa Alvarado ARNP - 11/30/2018 4:26 PM PDTSince things got changed at [place] on 11/02-, I need to know if [...] g Ashok went to the ER in [place], at which time he was restarted on spironolactone and swit ched from furosemide to torsemide. Informed [place] Santo will review the records and a r eturn call will be made. Okay per [place]. ...........................................GOPAL CHAPMAN RN on 11/30/18 at 10:51 elephone Encounter - Ronny Chapman RN - 11/29/2018 1:54 PM PDTReceived refill requests for spironolactone and torsemide. Spironolactone was discontinued by the [facility] on 10/27/18 due to decreased kidne y function and torsemide is not currently on the medication list and is not on his historica l medication list. Called [facility] pharmacy and relayed information. pharmacist endy brian with original prescribing physician. ...........................................RONNY CHAPMAN RN on 11/29/18 at 14:12 documented in this e ncounter Plan of Treatment +--------+ + + + + | Date | Type | Specialty | Care Team | Description | +--------+ + + + + | 03/12/ | Office | Nephrology | [facility], | | | 2019 | Visit | | ADARSH [address] | | | | | | [address] [facility] | | | | [...] | | | | | [place] [address] | | | | | | [phone] | | | | | | | [...] [place] | | | | | | [address] | | | | | | | [...] starting 11/30/2018 | | | | | [facility] | until 12/01/2019 | | | [...]
--- OUTSIDE RECORDS SUMMARY | ~2020-03-04 | XMS | Encounter Summary ---
Demographics + + + | Address | [address] | | | [place] [address] | + + + | Home Phone [...] [place], [place] | | | | | [address] | | + + + + + Care Team Providers + +------+ + | Care Answering Service Agent Name | Role | Phone | [...] | (HCC) Acute | ADARSH Santo | [address] | | | | | on chronic | [address] | | | | | systolic | [place] | [address] | | | | | (congestive) | [place], | [place], [place] | | | | | heart | [place] | [address] Phone: | | | | | failure | [address] | [phone] | | | | | (HCC) | Phone: | Fax: | | | | | Ischemic | [phone] | [phone] | | | | | cardiomyopat | Fax: | | | | | | hy | [phone] | | +--------+ + + + + [...] | | | | | Atherosclero | [address] | [address] [place] [address] | | | | | tic heart | [address] | [address] | | | | | disease of | [address] | [place], | | | | | tulalip | [address] | [place] [address] | | | | | coronary | [place] | Phone: | | | | | artery | [address] | [phone] | | | | | without | Phone: | Fax: | | | | | angina | [phone] | [phone] | | | | | pectoris ST [...] + + | 05/26/ | [facility] | [facility] | Jenny, | Abdominal aortic | | 2018 | Visit | CARDIOLOGY [address] | ADARSH Santo [address] | aneurysm (AAA) | | | | [place], | [place], | without rupture | | | | [place] [address] | [place] [address] | (HCC) (Primary Dx); | | | | [phone] | [phone] | Acute anterior wall | | | | | | [place] (HCC); Acute on | | | | [...] involving | | | | | | t[place]alip coronary | | | | | | artery of [place] | | | | | | heart without angina | | | | | | pectoris; | | | | | | Atherosclerosis of | | | | | | tulalip coronary | | | | | | artery of [place] | | | | | | heart with stable | | | | | | angina pectoris | | | | | | (HCC); FRUIT SHIPPER-D (AICD) | | | | | | [...] | | | | | | disease) ([facility]LY [facility]) | +--------+---------+ + + + Social History [...] thrombus, recent status post stents to , FRUIT SHIPPER-D placement in [facility] on 10/17/2017. He is being [...] Since that time, he was admitted at [facility] on 05/01/2018 with worsening of c ongestive heart failure despite aggressive medical treatment. He underwent a viability scan showing no evidence of viability in the anterior wall or inferior septum. There was eviden ce of redistribution/viability in the inferior segments. He was then transferred to [place] to see if there is any potential for surgical revascularization to improve ventricular systolic function. At [place] patient underwent heart catheterization and at that [...] by the advanced heart failure team at [place]. However, patient's insurance seemed not to cover certain things in [place]. Patient is haider ling to explore [place] options and insurance options. Also, after reviewing [...] anterior wall [place] Coronary artery disease involving [place]ip coronary artery of [place] heart without angina pectoris Ischemic cardiomyopathy FRUIT SHIPPER-D (AICD) [employer] 10/16/17 [facility] Stecker Implantable defibrillator reprogramming/check H/O [...] 3 0 tablet 5 Cholecalciferol (VITAMIN D-3) 49463 units CAPS Take by mouth Once a [...] Interval:176 ms P Duration:196 ms P Horizontal [place]:-6 deg P Front [place]:72 deg Q Onset:508 ms QRSD Interval:148 ms QT Interval:500 ms QTcB:508 ms QTcF:505 ms QRS Horizontal [place]:217 deg QRS [place]:167 deg I-40 Horizontal [place]:188 deg I-40 Front [place]:148 deg T-40 Horizontal [place]:231 deg T-40 Front [place]:163 deg T Horizontal [place]: deg T Wave [place]:15 deg S-T Horizontal [place]:67 deg S-T Front [place]:-59 deg Severity:- ABNORMAL ECG - INTERP:ATRIAL-SENSED VENTRICULAR-PACED COMPLEXES Electronically signed by: , 05-20-2018 05:48:28 LAB RESULTS reviewed during visit today primarily from [facility]: LIPID Lab Results Component Value Date LDLEX [...] PLTEX 171 04/22/2018 I reviewed records from [facility] and [facility] fo r hospitalization,including H&P, Discharge Summary and [...] shock requiring IABP, pressor (dop amine, norepinephrine). [facility] and [facility] were on divert. Patient wasn' t transferred to [facility]. B. Echocardiogram 03/17/2017 shows LV ejection fraction is severely de creased, visually estimated left ventricular ejection fraction is 20 - 25%, left ventricular systolic thickening is segmentally abnormal,mildly reduced RV systolic function. Normal R V size, no significant valvular abnormalities seen, compared to the most recent exam dated, 03/15/2017, there is no significant changes C. At [facility], patient had another STEMI code [...] to follow up closely with a local bobbin painter in [place] . He wias dischargeed with a LifeVest [...] y we will transfer the patient to [facility] for consideration of urgent coronary [...] is in class I I of the [place] [employer] functional class. He is in [...] in the se regions. C. S/P [employer] FRUIT SHIPPER-D 10-16-17 Dr Darby, [facility]. Ice interrogation today shows one [...] having some insurance coverage issues but maybe [place] may be another option. 3. Ventricular tachycardia: [...] week ago. Viry mustafa was after his AK and at the same time patient was having ventricular tachycardia. He was initiated on amiodarone and then discontinued before discharge. The plan is to monitor thro ugh his device and see if this is a problem that needs to be addressed. Patient is not on anticoagulation he was left that way from [facility]. Patient has had several GI [...] seen by advanced heart failure clinic from [facility]. Portions of this chart may have been created with [employer] voice recognition software. 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
--- OUTSIDE RECORDS SUMMARY | ~2020-03-04 | XMS | Encounter Summary ---
Demographics + + + | Address | [address] | | | [place] [address] | + + + | Home Phone [...] [place], [place] | | | | | [address] | | + + + + + Care Team Providers + +------+ + | Care Transcripter Name | Role | Phone | + [...] + + | 04/27/ | Telephone | [facility] | Carolina Lindarisa, | Blood Pressure | | 2018 | | CARDIOLOGY [address] | [address] | | | | | [place], | [place], | | | | | [place] [address] | [place] [address] | | | | | [phone] | [phone] | | | | | | | [...] | | | | [address] [facility] | | | | | | [address] [place] | | | | | | [id number] | | | | | | | | +--------+ + + + + | 04/16/ | Office | Cardiology | Alin Anderson | | | 2019 | Visit | | MD [address] | | | | | | [address] | | | | | | [place] [address] | | | | | | [phone] | | | | | | | [...] [place] | | | | | | [address] | | | | | | | | +--------+ + + + + documented as of this encounter Visit Diagnoses Not on filedocumented in this encounter"
--- OUTSIDE RECORDS SUMMARY | ~2020-03-04 | XMS | Encounter Summary ---
Demographics + + + | Address | [address] | | | [place] [address] | + + + | Home Phone [...] [place] | | | | | [address] | | + + + + + Care Team Providers + +------+ + | Care Senior Safety Management Consultant Name | Role | Phone | [...] Description | +--------+---------+ + + + | 10/18/ | Office | [facility] | Amy Olivares V, | Chronic systolic CHF | | 2020 | Visit | MED CTR CARDIAC | MD [address] | (congestive heart | | | | REHABILITATION [address] | [address] [place], [place] | failure) ([facility]) | | | | [address] | [address] | (Primary Dx) | | | | [place] [address] | | | | | | [phone] | | | +--------+---------+ + + + [...] this encounter Progress Notes Gael Woo - 10/18/2019 9:00 AM PSTPatient tolerated exercise session without [...] [place] | | | | | | [address] | | | | | | | | +--------+ + + + + | 04/16/ | Office | Cardiology | Alin Anderson | | | 2019 | Visit | | MD Cheryl Arreguin | | | | | | [address] | | | | | | [place] [address] | | | | | | [phone] | | | | | | | [...] [place] | | | | | | [address] | | | | | | | | +--------+ + + + + documented as of this encounter Visit Diagnoses + + | Diagnosis | + + | Chronic systolic CHF (congestive heart failure) (HCC) - Primary | + + documented in this encounter"
--- OUTSIDE RECORDS SUMMARY | ~2020-03-04 | XMS | Encounter Summary ---
Demographics + + + | Address | [address] | | | [place] [address] | + + + | Home Phone [...] [place], [place] | | | | | [address] | | + + + + + Care Team Providers + +------+ + | Care Imaging Assistant Name | Role | Phone | [...] + + | 12/10/ | Office | [facility] | RahulyazshirazRandy, | Acute anterior wall | | 2018 | Visit | MED CTR CARDIAC | MD [address] | [place] ([facility]) (Primary | | | | REHABILITATION [address] | [place], | Dx) | | | | [address] [place] | [place] [address] | | | | | [place] [address] | [phone] | | | | | [phone] | | | +--------+---------+ + + + [...] as of this encounter Progress Cheri Mchugh, STUBBER - 12/10/2017 9:00 AM PDT [facility] CARDIAC REHABILITATION [address] [facility] [address] Cardiac Rehab Date: 12/10/2017 Patient Information Patient Name: Bob Will Date of : 1955 Age: 62 y.o. Encounter Diagnoses Code Name Primary? I21.09 Acute anterior wall [place] (HCC) Yes Number of Visits Approved: 36 [...] | | | | | [address] [facility] | | | | | [...] | | | | | [place] [address] | | | | | | [phone] | | | | | | | [...] [place] | | | | | | [address] | | | | | | | | +--------+ + + + + documented as of this encounter Visit Diagnoses + + | Diagnosis | + + | Acute anterior wall [place] (HCC) - Primary Acute myocardial infarction of other anterior | | wall, episode of care unspecified | + + documented in this encounter"
--- OUTSIDE RECORDS SUMMARY | ~2020-03-04 | XMS | Encounter Summary ---
Demographics + + + | Address | [address] | | | [place] [address] | + + + | Home Phone | | + + + | Preferred Language | Unknown | + + + | Marital Status | | + + + | Advent Affiliation | NRP | + + + | Race | White | + + + | Ethnic Group | Not or | + + + Author + + + | Author | [facility] | + + + | Organization | [facility] | + + + | Address | Unknown | + + + | Phone | Unavailable | + + + Support + + + + + | Name | Relationship | Address | Phone | + + + + + | [place] Will | ECON | [address] | | | | | [place] [address] | | + + + + + Care Team Providers + +------+ + | Care Director Of Public Relations Name | Role | Phone | + +------+ + | Chato Matson MD | PCP | | + +------+ + Encounter Details +--------+ + + + + | Date | Type | Department | Care Team | Description | +--------+ + + + + | 10/11/ | Procedure | Diagnostic Imaging | | | | 2018 | Pass | Services at [facility] | | | | | | [address] | | | | | | [place] | | | | | | [facility] | | | | | | [place], [place] | | | | | | [address] | | | | | | [phone] | | | +--------+ + + + [...]
--- OUTSIDE RECORDS SUMMARY | ~2020-03-04 | XMS | Encounter Summary ---
Demographics + + + | Address | [address] | | | [place] [address] | + + + | Home Phone [...] [place], [place] | | | | | [address] | | + + + + + Care Team Providers + +------+ + | Care Can Striper Name | Role | Phone | + [...] | apnea, | [address] | [place] | | | | | unspecified | [address] [place] | [place], | | | | | type | [place], [place] | [place] [address] | | | | | Procedures | [address] | Phone: | | | | | [place] POLYSOM | Phone: | [phone] | | | | | 6/>YRS SLEEP | [phone] | Fax: | | | | | W/CPAP 4/> | Fax: | [phone] | | | | | ADDL [place]ATERINA | [phone] | | | | | | [place] | | | | | | [...] | 03/03/ | Hospital | [facility] | Sofie Sneed MD | Sleep apnea, | | 2018 - | Encounter | MED CTR SLEEP | [address] | unspecified type | | | | CENTER [address] | [place] | | | 03/04/ | | [place] | [address] | | | 2017 | | [address] | | | | | | [phone] | | | +--------+ + + + [...] 0 | | | | (VITAMIN D-3) [address] | mouth Once a week. | | [...] (obstructive sleep apnea); Nocturnal hypoxemia [facility] [place] [address] Polysomnogram Report on Bob Will performed on March 03 2800 PATIENT IDENTIFICATION: Bob Will IS a 62 y.o..-year-old male. with a history of coronary artery disease post recent anterior wall [place], post PTCA and stents on 03/15/17, cardiac [...] sleep quality during sleep study as better. Dye Operator note: patient tried medium dreamwear nasal mask [...] this chart may have been created with [employer] voice recognition software. Occasi onal wrong-word or [...] | | | | | [facility] | | | | | | [address] [place] | | | | | | [address] | | | | | | | | +--------+ + + + + | 04/16/ | Office | Cardiology | Alin Anderson | | | 2019 | Visit | | MD Cheryl Arreguin | | | | | | [address] | | | | | | [place] [address] | | | | | | [phone] | | | | | | | [...] [place] | | | | | | [address] | | | | | | | [...] [facility] | | | [place] [address] Polysomnogram | | | Report on Bob Will performed on March 03 2800 PATIENT | | | IDENTIFICATION: Bob Will IS a 62 y.o..-year-old male. with | | | a history of coronary artery disease post recent anterior wall [place], | | | post PTCA and stents [...] | | during sleep study as better. Dye Operator note: patient tried medium | | | [...] have been | | | created with [employer] voice recognition software. Occasional wrong-word | | [...] this chart may have been created with [employer] voice | | |recognition software. Occasional wrong-word [...] PDT [facility] | | [place], [place] [id number] Report on Bob Chaudhary | | Suman performed on March 03 2800PATIENT IDENTIFICATION:Bob Will IS a 62 | | y.o..-year-old male. with a history of coronary artery disease post recent anterior wall | | [place], post PTCA and stents on 03/15/17, cardiac [...] during sleep study as better. | | Dye Operator note: patient tried medium dreamwear nasal mask [...] may have been | | created with [employer] voice recognition software. Occasional wrong-word or | [...] this chart may have been created with [employer] voice recognition software. Occasi onal wrong-word or [...]
--- OUTSIDE RECORDS SUMMARY | ~2020-03-04 | XMS | Encounter Summary ---
Demographics + + + | Address | [address] | | | [place] [address] | + + + | Home Phone [...] | + + + + + | Veniec Will | ECON | [place], [place] | | | | | [address] | | + + + + + Care Team Providers + +------+ + | Care German Professor Name | Role | Phone | + +------+ + PCP | Unavailable | + +------+ + Encounter Details +--------+ + + + + | Date | Type | Department | Care Team | Description | +--------+ + + + + | 04/06/ | Abstract | [facility] | Randy Figueroa, | Coronary artery | | 2017 | | CARDIOLOGY [address] | [address] | disease, angina | | | | [place], | [place], | presence | | | | [place] [address] | [place] [address] | unspecified, | | | | [phone] | [phone] | unspecified vessel | | | | | | or lesion type, | | | | | | unspecified whether | | | | | | [place] or | | | | | | [...] | | | | | [place] [address] | | | | | | [phone] | | | | | | | [...] [place] | | | | | | [address] | | | | | | | [...] Resulting Agency Comment | + + | [facility] | + + + +---------+ [...] Resulting Agency Comment | + + | [facility] | + + + +---------+ [...] Resulting Agency Comment | + + | [facility] | + + + +---------+ [...] Resulting Agency Comment | + + | [facility] | + + + +---------+ [...] Resulting Agency Comment | + + | [facility] | + + + +---------+ [...] Resulting Agency Comment | + + | [facility] | + + + +---------+ + [...] Resulting Agency Comment | + + | [facility] | + + + +---------+ [...] Resulting Agency Comment | + + | [facility] | + + + +---------+ [...] Resulting Agency Comment | + + | [facility] | + + + +---------+ [...] Resulting Agency Comment | + + | [facility] | + + + +---------+ [...] Resulting Agency Comment | + + | [facility] | + + + +---------+ [...] Resulting Agency Comment | + + | [facility] | + + + +---------+ [...] Resulting Agency Comment | + + | [facility] | + + + +---------+ [...] Resulting Agency Comment | + + | [facility] | + + + +---------+ [...] Resulting Agency Comment | + + | [facility] | + + + +---------+ [...] Resulting Agency Comment | + + | [facility] | + + + +---------+ [...] Resulting Agency Comment | + + | [facility] | + + + +---------+ [...] lesion | | type, unspecified whether [place] or transplanted heart | + + documented in this encounter"
--- OUTSIDE RECORDS SUMMARY | ~2020-03-04 | XMS | Encounter Summary ---
Demographics + + + | Address | [address] | | | [place] [address] | + + + | Home Phone [...] [place], [place] | | | | | [address] | | + + + + + Care Team Providers + +------+ + | Care Water Service Supervisor Name | Role | Phone | [...] + + | 11/05/ | Telephone | [facility] | Jenny, | Other | | 2017 | | CARDIOLOGY [address] | [address] JUDGE [address] | | | | | [place], | [place], | | | | | [place] [address] | [place] [address] | | | | | [phone] | [phone] | | | | | | | [...] 11/05/17 at 16:40 elephone Encounter - Hansa Alvarado ARNP - 11/05/2017 3:08 PM PSTSure, he [...] consult with Hansa and return his call ...........................................USZANNE CHENG, RN on 11/05 at 9:17 documented in thi s encounter Plan of Treatment +--------+ + + + + | Date | Type | Specialty | Care Team | Description | +--------+ + + + + | 03/12/ | Office | Nephrology | Litzy, | | | 2019 | Visit | | ADARSH [address] | | | | | | [facility] | | | | | | [address] [place] | | | | | | [address] | | | | | | | | +--------+ + + + + | 04/16/ | Office | Cardiology | Alin Anderson | | | 2019 | Visit | | MD Cheryl Arreguin | | | | | | [address] | | | | | | [place] [address] | | | | | | [phone] | | | | | | | [...] [place] | | | | | | [address] | | | | | | | | +--------+ + + + + documented as of this encounter Visit Diagnoses Not on filedocumented in this encounter"
--- OUTSIDE RECORDS SUMMARY | ~2020-03-04 | XMS | Encounter Summary ---
Demographics + + + | Address | [address] | | | [place] [address] | + + + | Home Phone [...] [place] | | | | | [address] | | + + + + + Care Team Providers + +------+ + | Care Storage Brine Worker Name | Role | Phone | [...] Way [place], [place] | failure) ([facility]) | | | | [address] | [address] | (Primary Dx) | | | | [place] [address] | | | | | | [phone] | | | +--------+---------+ + + + [...] [place] | | | | | | [address] | | | | | | | | +--------+ + + + + | 04/16/ | Office | Cardiology | Alin Anderson | | | 2019 | Visit | | MD Cheryl Arreguin | | | | | | [address] | | | | | | [place] [address] | | | | | | [phone] | | | | | | | [...] [place] | | | | | | [address] | | | | | | | | +--------+ + + + + documented as of this encounter Visit Diagnoses + + | Diagnosis | + + | Chronic systolic CHF (congestive heart failure) (HCC) - Primary | + + documented in this encounter"
--- OUTSIDE RECORDS SUMMARY | ~2020-03-04 | XMS | Encounter Summary ---
Demographics + + + | Address | [address] | | | [place] [address] | + + + | Home Phone [...] [place], [place] | | | | | [address] | | + + + + + Care Team Providers + +------+ + | Care Spinning Mule Tender Name | Role | Phone | [...] | | | | | hy | [facility] | [address] | | | | | Procedures | [place], | [facility] [place] | | | | | [place] | [place] [address] | [place], [place] | | | | | OUTPATIENT | Phone: | [address] | | | | | CARDIAC | [phone] | Phone: | | | | | REHAB W/O | Fax: | [phone] | | | | | CONT ECG | [phone] | Fax: | | | | | MONITOR | | [phone] | +--------+ + + + + + Encounter Details +--------+---------+ + + + | Date | Type | Department | Care Team | Description | +--------+---------+ + + + | 11/11/ | Office | [facility] | Randy Figueroa, | Ischemic | | 2018 | Visit | MED CTR CARDIAC | MD [address] [facility] | cardiomyopathy | | | | REHABILITATION [address] | [address], | | | | | [address] [facility] [place] | [place] [address] | | | | | [place] [address] | [phone] | | | | | [phone] | | | | | | | [...] Fields RN - 11/11/2017 12:[address] [facility] CARDIAC REHABILITATION [address] [facility] [address] Cardiac Rehab Evaluation Date: 11/11/2017 Patient Information [...] thrombus, recent status post stents to , DECK MOLDER-D placement in [facility] on 10/17/2017. 11/11/17 At his cardiology [...] was 106/70. His was co hardeep from Al[place] to follow him home. He waited in [...] Healthy Dietary Education Date: 11/11/17 -Referral to Snag Grinder: Date: -DVD: Healthy Eating For Life Date: [...] exercise until stable. Date: Range: -Referral to Middle School Counselor Date: Education Points listed below- Date Completed: [...] [place] | | | | | | [address] | | | | | | | | +--------+ + + + + | 04/16/ | Office | Cardiology | Alin Anderson | | | 2019 | Visit | | MD [address] | | | | | | [address] | | | | | | [place] [address] | | | | | | [phone] | | | | | | | [...] [place] | | | | | | [address] | | | | | | | | +--------+ + + + + documented as of this encounter Visit Diagnoses + + | Diagnosis | + + | Ischemic cardiomyopathy Other specified forms of chronic ischemic heart disease | + + documented in this encounter
--- OUTSIDE RECORDS SUMMARY | ~2020-03-04 | XMS | Encounter Summary ---
Demographics + + + | Address | [address] | | | [place] [address] | + + + | Home Phone [...] [place] | | | | | [address] | | + + + + + Care Team Providers + +------+ + | Care Gas Station Supervisor Name | Role | Phone | [...] | (severe) (HCC) | | | | [place], [place] | [address] [place], [place] | (Primary Dx) | | | | [address] | [address] | | | | | [phone] | | | +--------+ + + + [...] [place] | | | | | | [address] | | | | | | | | +--------+ + + + + | 04/16/ | Office | Cardiology | Alin Anderson | | | 2019 | Visit | | MD [address] | | | | | | [address] [address] | | | | | | [place] [address] | | | | | | [phone] | | | | | | | | +--------+ + + + + | 04/16/ | Procedure | Cardiology | | | | 2019 | visit | | | | +--------+ + + + + | 04/25/ | Office | Cardiology | Rocio Paerl, | | | 2019 | Visit | | MD Cheryl URENA | | | | | | [place] | | | | | | [address] | | | | | | | | +--------+ + + + + documented as of this encounter Visit Diagnoses + + | Diagnosis | + + | Chronic kidney disease, stage IV (severe) (HCC) - Primary Chronic kidney disease, | | Stage IV (severe) | + + documented in this encounter"
--- OUTSIDE RECORDS SUMMARY | ~2020-03-04 | XMS | Encounter Summary ---
Demographics + + + | Address | [address] | | | [place] [address] | + + + | Home Phone [...] [place] | | | | | [address] | | + + + + + Care Team Providers + +------+ + | Care Retail Support Specialist Name | Role | Phone | [...] | | | | | hy | [address] | TH[address]AP[address] | | | | | Procedures | [place], | [place] | | | | | [place] | [place] [address] | [place] | | | | | OUTPATIENT | Phone: | [address] | | | | | CARDIAC | [phone] | Phone: | | | | | REHAB W/O | Fax: | [phone] | | | | | CONT ECG | [phone] | Fax: | | | | | MONITOR | | [phone] | +--------+ + + + + + [...] | Required | | (obstructive | Hansa, SCIENCE CENTER DISPLAY BUILDER | Disorder [address] | | | | | sleep | [address] | [address] | | | | | apnea) | [place] | [place], | | | | | | [place], | [place] [address] | | | | | | [place] | Phone: | | | | | | [address] | [phone] | | | | | | Phone: | Fax: | | | | | | [phone] | [phone] | | | | | | Fax: | | | | | | | [phone] | | +--------+ + + + + [...] | | | | (peripheral | Hansa, SCIENCE CENTER DISPLAY BUILDER | [place], | | | | | artery | [address] | [place] [address] | | | | | disease) | [place] | Phone: | | | | | (HCC) | JOSEFIN[place]MED[place], | [phone] | | | | | Procedures | [place] | Fax: | | | | | CT Angiogram | [address] | [phone] | | | | | Lower | Phone: | | | | | | Extremity | [phone] | | | | | | Left w Con | Fax: | | | | | | | [phone] | | +--------+--------+ + + + + [...] | | | | | Atherosclero | [address] | [address] | | | | | tic heart | [address] | [address] | | | | | disease of | [address] | [place], | | | | | [place] | [address] | [place] [address] | | | | | coronary | [place] | Phone: | | | | | artery | [address] | [phone] | | | | | without | Phone: | Fax: | | | | | angina | [phone] | [phone] | | | | | pectoris ST [...] + + | 01/13/ | Office | [facility] | Jenny, | HALAL BUTCHER-D (AICD) | | 2018 | Visit | CARDIOLOGY [address] | ADARSH Santo [address] | [employer] 10/16/17 | | | | [place], | [place], | [facility] | | | | [place] [address] | [place] [address] | (Primary Dx); PAD | | | | [phone] | [phone] | (peripheral artery | | | | | | disease) ([facility]); | | | | | | Acute anterior wall | | | | | | [place] ([facility]); Coronary | | | | | | artery disease | | | | | | involving [place] | | | | | | coronary artery of | | | | | | [place] heart without | | | | | | angina pectoris; | | | | | | Ischemic | | | | | | cardiomyopathy; | | | | | | Tachycardia; H/O | | | | | | atrial flutter; | | | | | | Atrial fibrillation, | | | | | | unspecified type | | | | | | ([facility]); Implantable | | | | | | [...] defibrillator reprogramming/check Z45.02 V53.32 Device Interrogation 2. HALAL BUTCHER-D (AICD) [employer] 10/16/17 [facility] Z95.810 V45.02 Device Interrogation 3. Ischemic [...] thrombus, recent status post stents to , HALAL BUTCHER-D placement in [facility] on 10/17/2017. He was last seen 11/11/2017 [...] anterior wall [place] Coronary artery disease involving [place] coronary artery of [place] heart without angina pectoris Ischemic cardiomyopathy Pulmonary edema HALAL BUTCHER-D (AICD) [employer] 10/16/17 [facility] Stecker Implantable defibrillator reprogramming/check H/O atrial flutter Tachycardia GERD (gastroesophageal reflux disease) PAD (peripheral artery disease) CURRENT MEDICATIONS Current Outpatient Prescriptions Medication Sig Dispense Refill aspirin 81 MG tablet Take 81 mg by mouth Daily. atorvaSTATin (LIPITOR) 80 MG tablet Take 1 tablet by mouth nightly. 30 tablet 5 Cholecalciferol (VITAMIN D-3) 47313 units CAPS Take by mouth Once a [...] kg (208 lb 15.9 oz) | B [place] 29.99 kg/m Physical Exam Constitutional: He is [...] RESULTS reviewed during visit today primarily from [facility]: LIPID Lab Results Component Value Date [...] PLTEX 226 10/17/2017 I reviewed records from [facility] for office visit on wh ich [...] shock requiring IABP, pressor (dopa mine, norepinephrine). [facility] and [facility] were on divert. Patient wasn't transferred to [facility]. B. [...] to follow up closely with a local treatment plant operator in [place] . He wias dischargeed with a LifeVest [...] we will tr ansfer the patient to [facility] for consideration of urgent coronary revascularization. J. [...] He is in class II of the [place] Heart Association functional class. There are no [...] myocardium in these regions. C. S/P [employer] HALAL BUTCHER-D 10-16-17 Dr Darby, [facility]. Ice interrogation today [...] n he was left that way from [facility]. [...] this chart may have been created with Shustir voice recognition software. Occasi onal wrong-word or [...] Modules accepted: Orders ddendum Note - Suzanne Chneg RN - 01/13/2018 8:30 AM PDT Addended [...] | | | | | [address] [facility] | | | | | | [address] [place] [place] | | | | | | [address] | | | | | | | | +--------+ + + + + | 04/16/ | Office | Cardiology | Alin Anderson | | | 2019 | Visit | | MD Cheryl Arreguin | | | | | | [address] | | | | | | [place] [address] | | | | | | [phone] | | | | | | | [...] [place] | | | | | | [address] | | | | | | | [...] 12 LEAD | Routin | 01/13/2018 | HALAL BUTCHER-D (AICD) | Results for this | | | e | 7:54 AM | [employer] 10/16/17 | procedure are in the | | | | PDT | [facility] | results section. | | | | | (peripheral artery | | | | | | disease) (HCC) | | | | | | Acute anterior wall | | | | | | [place] (HCC) Coronary | | | | | | artery disease | | | | | | involving [place] | | | | | | coronary artery of | | | | | | [place] heart without | | | | | [...] MD | | | | | | ([id number]) on 01/13/2018 | | | | | [...] + | Diagnosis | + + | HALAL BUTCHER-D (AICD) [employer] 10/16/17 EULOGIO Darby - Rigoberto | + + | PAD (peripheral artery disease) (HCC) Unspecified disorders of arteries and | | arterioles | + + | Acute anterior wall [place] (HCC) Acute myocardial infarction of other anterior wall, | | episode of care unspecified | + + | Coronary artery disease involving [place] coronary artery of [place] heart without | | angina pectoris | [...]
--- OUTSIDE RECORDS SUMMARY | ~2020-03-04 | XMS | Encounter Summary ---
Demographics + + + | Address | [address] | | | [place] [address] | + + + | Home Phone [...] [place], [place] | | | | | [address] | | + + + + + Care Team Providers + +------+ + | Care Senior Accounting Specialist Name | Role | Phone | [...] | | | | | | | [place] | | | | | | | [...] + | 10/05/ | Anesthesia | [facility] | Yong Napier MD | | | 2018 | Event | MED CTR MP INTRA OP | [address] | | | | | [address] | [place] | | | | | [place] | [address] | | | | | [address] | | | | | | [phone] | | | +--------+ + + + [...] | | Type: endotracheal; Size: 7.5; | SOUND EDITOR | | | | Removal: per protocol; Removal | | | | | Date: 10/05/17; Removal Time: | | | | | 1946 | | | +--------+ + + + | Periph | 10/03/17; 0930; Left; Forearm; | 10/03/17 0930 by | 10/07/17 0116 by | | wilber | uffc-quk-mrixaj catheter system; | Demetra Kirk RN | [...] Dalia Diaz RN | | IV | nvsy-ghd-ngelvr catheter system; | | | | | [...] EVALUATION Bob Will 61 y.o. male 1955 [id number] Procedure(s) EGD (N/A Mouth) Cooperates? Yes Mental [...] signed by Yong Napier MD 10/05/2017 13:06 [facility]ALTHE[facility]ronically signed by Yong Napier MD at 10/05 1:06 PM PSTAnesthesia Preprocedure Evaluation - Yong Napier MD - 10/05/2017 10:44 AM PST ANESTHESIA PREANESTHESIA EVALUATION Bob Will 61 y.o. male 1955 [id number] Procedure(s): EGD (N/A Mouth) Review of Systems / Med History Cardiovascular (+) CAD, past [place] (+) PVD: Pulmonary On ventilator. 40% O2.. [...] [place] | | | | | | [address] | | | | | | | | +--------+ + + + + | 04/16/ | Office | Cardiology | Alin Anderson | | | 2019 | Visit | | MD [address] | | | | | | [address] | | | | | | [place] [address] | | | | | | [phone] | | | | | | | [...] [place] | | | | | | [address] | | | | | | | [...]
--- OUTSIDE RECORDS SUMMARY | ~2020-03-04 | XMS | Encounter Summary ---
Demographics + + + | Address | [address] | | | [place] [address] | + + + | Home Phone [...] | | | | | [place] [address] | | + + + + + Care Team Providers + +------+ + | Care Electroplater Helper Name | Role | Phone | [...] Rd | | | | | | [place] | | | | | | [address] | | | +--------+ + + + [...]
--- OUTSIDE RECORDS SUMMARY | ~2020-03-04 | XMS | Encounter Summary ---
Demographics + + + | Address | [address] | | | [place] [address] | + + + | Home Phone [...] [place] | | | | | [address] | | + + + + + Care Team Providers + +------+ + | Care Senior Genetic Counselor Name | Role | Phone | [...] | | | heart | [place], | [place] | | | | | failure | [place] [address] | [place] | | | | | (HCC) | Phone: | [address] | | | | | I50.22 | [phone] | Phone: | | | | | Procedures | Fax: | [phone] | | | | | Cardiac | [phone] | Fax: | | | | | Rehab | | [phone] | +--------+--------+ + + + + Encounter [...] [address] | [address] [place], [place] | failure) ([facility]) | | | | [address] | [address] | | | | | [place] [address] | | | | | | [phone] | | | +--------+---------+ + + + [...] Gael Ortega - 07/05/2019 12:00 PM PDT [facility] CARDIAC REHABILITATION [address] [place] [address] Cardiac Rehab Date: 07/05/2019 Patient Information Patient Name: Bob Will Date of : 1955 Age: 63 y.o. Encounter Diagnoses Code Name Primary? I50.22 Chronic systolic CHF (congestive heart failure) ([facility]) Number of Visits Approved: 34 [...] | | | | | [place] [address] | | | | | | [phone] | | | | | | | [...] [place] | | | | | | [address] | | | | | | | | +--------+ + + + + documented as of this encounter Visit Diagnoses + + | Diagnosis | + + | Chronic systolic CHF (congestive heart failure) (HCC) | + + documented in this encounter"
--- OUTSIDE RECORDS SUMMARY | ~2020-03-04 | XMS | Encounter Summary ---
Demographics + + + | Address | [address] | | | [place] [address] | + + + | Home Phone [...] [place], [place] | | | | | [address] | | + + + + + Care Team Providers + +------+ + | Care Cigar Packer And Picker Name | Role | Phone | [...] | | CARDIOLOGY [address] | Hansa, PURCHASING BUYER [address] | | | | | [place], | [place], | | | | | [place] [address] | [place] [address] | | | | | [phone] | [phone] | | | | | | | [...] | | | | [address] [place] | | | | | | [address] | | | | | | | | +--------+ + + + + | 04/16/ | Office | Cardiology | Alin Anderson | | | 2019 | Visit | | MD [address] | | | | | | [address] | | | | | | [place] [address] | | | | | | [phone] | | | | | | | [...] [place] | | | | | | [address] | | | | | | | | +--------+ + + + + documented as of this encounter Visit Diagnoses Not on filedocumented in this encounter"
--- OUTSIDE RECORDS SUMMARY | ~2020-03-04 | XMS | Encounter Summary ---
Demographics + + + | Address | [address] | | | [place] [address] | + + + | Home Phone [...] [place], [place] | | | | | [address] | | + + + + + Care Team Providers + +------+ + | Care Computing Systems Mechanic Name | Role | Phone | [...] [address] | | | | | [place], | [place], | | | | | [place] [address] | [place] [address] | | | | | [phone] | [phone] | | | | | | | [...] Patient and his notified, prescription sent to [facility] ............................... ...........Suzanne Cheng RN on 06/29/18 at 8:56 elephone [facility] - Suzanne Cheng RN - 06/28/2018 4:45 PM PDTRefilled prescription for amiodarone. Medication list is listed for once a day. Patient has changed from 400 mg twice a day to 200 mg three times a day. In [place] Alvarado [facility] I informed the patient that I would consult with Dr Kay ..........................................Suzanne Cheng RN on at 16:53 documented in thi s encounter Plan of Treatment +--------+ + + + + | Date | Type | Specialty | Care Team | Description | +--------+ + + + + | 03/12/ | Office | Nephrology | Litzy, | | | 2019 | Visit | | [address]RSH [address] | | | | | | [address] | | | | | | [address] [place] | | | | | | [address] | | | | | | | | +--------+ + + + + | 04/16/ | Office | Cardiology | Alin Anderson | | | 2019 | Visit | | MD Cheryl Arreguin | | | | | | [address] | | | | | | [place] [address] | | | | | | [phone] | | | | | | | [...] [place] | | | | | | [address] | | | | | | | | +--------+ + + + + documented as of this encounter Visit Diagnoses Not on filedocumented in this encounter"
--- OUTSIDE RECORDS SUMMARY | ~2020-03-04 | XMS | Encounter Summary ---
Demographics + + + | Address | [address] | | | [place] [address] | + + + | Home Phone [...] [place] | | | | | [address] | | + + + + + Care Team Providers + +------+ + | Care Textile Scrap Salvager Name | Role | Phone | + [...] | | | | | hy | [address] | [address] | | | | | Procedures | [place], | [place] | | | | | [place] | [place] [address] | [place], [place] | | | | | OUTPATIENT | Phone: | [address] | | | | | CARDIAC | [phone] | Phone: | | | | | REHAB W/O | Fax: | [phone] | | | | | CONT ECG | [phone] | Fax: | | | | | MONITOR | | [phone] | +--------+ + + + + + Encounter Details +--------+ + + + + | Date | Type | Department | Care Team | Description | +--------+ + + + + | 10/19/ | Orders Only | [facility] [place] | Randy Figueroa, | Ischemic | | 2018 | | CARDIOLOGY [address] | MD [address] [place] | cardiomyopathy | | | | [place], | [place], | (Primary Dx) | | | | [place] [address] | [place] [address] | | | | | [phone] | | | | | | | [...] [place] | | | | | | [address] | | | | | | | | +--------+ + + + + | 04/16/ | Office | Cardiology | Alin Anderson | | | 2019 | Visit | | MD Cheryl Arreguin | | | | | | [address] | | | | | | [place] [address] | | | | | | [phone] | | | | | | | [...] [place] | | | | | | [address] | | | | | | | [...]
--- OUTSIDE RECORDS SUMMARY | ~2020-03-04 | XMS | Encounter Summary ---
Demographics + + + | Address | [address] | | | [place] [address] | + + + | Home Phone [...] [place], [place] | | | | | [address] | | + + + + + Care Team Providers + +------+ + | Care Telephone Advice Nurse Name | Role | Phone | [...] + | 08/06/ | Refill | [facility] | Randy Figueroa, | Medication Refill | | 2017 | | CARDIOLOGY [address] | MD [address] [place] | | | | | [place], | [place], | | | | | [place] [address] | [place] [address] | | | | | [phone] | | | | | | | [...] | | | | [address] [place] | | | | | | [id number] | | | | | | | | +--------+ + + + + | 04/16/ | Office | Cardiology | Alin Anderson | | | 2019 | Visit | | MD [address] | | | | | | [address] | | | | | | [place] [address] | | | | | | [phone] | | | | | | | [...] [place] | | | | | | [address] | | | | | | | | +--------+ + + + + documented as of this encounter Visit Diagnoses Not on filedocumented in this encounter"
--- OUTSIDE RECORDS SUMMARY | ~2020-03-04 | XMS | Encounter Summary ---
Demographics + + + | Address | [address] | | | [place] [address] | + + + | Home Phone [...] [place], [place] | | | | | [address] | | + + + + + [...] | having issues) | | | | [place], | [place], | | | | | [place] [address] | [place] [address] | | | | | [phone] | [phone] | | | | | | | [...] notified, lab order faxed to Christa in [place], she will have him do it on [...] in water intake, maybe keep it by 8754-0615 ml daily Electronically signed by: ADARSH Stevens [...] [place] | | | | | | [address] | | | | | | | | +--------+ + + + + | 04/16/ | Office | Cardiology | Alin Anderson | | | 2019 | Visit | | MD [address] | | | | | | [address] | | | | | | [place] [address] | | | | | | [phone] | | | | | | | [...] | | | | [place] | | | | | | [address] | | | | | | | [...] mL/min/1.73m2 | [facility] | | | BRITISH | RATE,ESTIMATED | | MEDICAL | | | | mL/min/1.41r7Txid than | | CENTER - | | [...] ST. | [address] | [place], [place] | [phone] | | [facility] | | [address] | | | - LABORATORY | | [...] [address] | [place] | [phone] | | [facility] | | [address] | | | - LABORATORY | | | | + + + + + documented in this encounter Visit Diagnoses + + | Diagnosis | + + | Congestive heart failure, unspecified HF chronicity, unspecified heart failure type | | (HCC) - Primary | + + documented in this encounter"
--- OUTSIDE RECORDS SUMMARY | ~2020-03-04 | XMS | Encounter Summary ---
Demographics + + + | Address | [address] | | | [place] [address] | + + + | Home Phone [...] [place] | | | | | [address] | | + + + + + Care Team Providers + +------+ + | Care Train System Operator Name | Role | Phone [...] 06/06/ | Implant | [facility] | Rahullindacathy Lindarahul, | Implantable | | 2017 | Monitor | CARDIOLOGY [address] | defibrillator | | | | [place], | [place], | reprogramming/check | | | | [place] [address] | [place] [address] | (Primary Dx); PHONE ENGINEER-D | | | | [phone] | [phone] | (AICD) Medtronic | | | | [...] Paceart documentation and remote PDF scanned into angelMD for remote interrogation re sults. Data collected by Kelly Rodriguez RN [employer] transmission. Presenting rhythm: sinus rhythm atrial sensed [...] [place] | | | | | | [address] | | | | | | | | +--------+ + + + + | 04/16/ | Office | Cardiology | Alin Anderson | | | 2019 | Visit | | MD Cheryl Arreguin | | | | | | [address] [address] | | | | | | [place] [address] | | | | | | [phone] | | | | | | | [...] [place] | | | | | | [address] | | | | | | | [...] results section. | | | | | PHONE ENGINEER-D (AICD) | | | | | [...] remote PDF scanned into | | | angelMD for remote interrogation results. Data collected by Kelly Samuel | | | ALFONSO Rodriguez [employer] transmission. Presenting rhythm: sinus | | | [...] implantable cardiac defibrillator | + + | PHONE ENGINEER-D (AICD) Medtronic 10/16/17 [facility] Cabezasgideon | + + | Congestive heart failure, unspecified HF chronicity, unspecified heart failure type | | (HCC) | + + | Ischemic cardiomyopathy Other specified forms of chronic ischemic heart disease | + + documented in this encounter"
--- OUTSIDE RECORDS SUMMARY | ~2020-03-04 | XMS | Encounter Summary ---
Demographics + + + | Address | [address] | | | [place] [address] | + + + | Home Phone [...] [place], [place] | | | | | [address] | | + + + + + Care Team Providers + +------+ + | Care Aoc Director Combat Operations Officer Name | Role | Phone | [...] W | defibrillator | | | | [place], | [address] [place] | reprogramming/check | | | | [place] [address] | [place] [address] | (Primary Dx); NEWSPAPER VENDOR-D | | | | [phone] | [phone] | (AICD) Medtronic | | | | [...] Interrogation CANCELED: Device Interrogation - Remote 2. NEWSPAPER VENDOR-D (AICD) Medtronic 10/16/17 [facility] Stecker Z95.810 V45.02 Device Interrogation CANCELED: Device [...] PATRICK | | | | | | [id number] | | | | | | | | +--------+ + + + + | 04/16/ | Office | Cardiology | Alin Anderson | | | 2019 | Visit | | MD [address] | | | | | | [address] | | | | | | [place] [address] | | | | | | [phone] | | | | | | | | +--------+ + + + + | 04/16/ | Procedure | Cardiology | | | | 2019 | visit | | | | +--------+ + + + + | 04/25/ | Office | Cardiology | DaeElinagwendolyn, | | | 2019 | Visit | | MD Cheryl URENA | | | | | | [place] | | | | | | [address] | | | | | | | [...] results section. | | | | | NEWSPAPER VENDOR-D (AICD) | | | | | | [...] | | Device Interrogation - Remote 2. NEWSPAPER VENDOR-D (AICD) Medtronic 10/16/17 [facility] | | | Wilner Z95.810 V45.02 Device [...] implantable cardiac defibrillator | + + | NEWSPAPER VENDOR-D (GABBI) Medtronic 10/16/17 E[facility] Darby | + + | Ischemic cardiomyopathy Other specified forms of chronic ischemic heart disease | + + documented in this encounter"
--- OUTSIDE RECORDS SUMMARY | ~2020-03-04 | XMS | Encounter Summary ---
Demographics + + + | Address | [address] | | | [place] [address] | + + + | Home Phone [...] [place], [place] | | | | | [address] | | + + + + + Care Team Providers + +------+ + | Care Legal Project Manager Name | Role | Phone [...] | CARDIOLOGY [address] [place] | Dx); Ischemic | | | | [place], | [place], | cardiomyopathy; | | | | [place] [address] | [place] [address] | MANAGER IMAGE-D (AICD) | | | | [phone] | [phone] | Medtronic 10/16/17 | | | | [...] [place] | | | | | | [address] | | | | | | | | +--------+ + + + + | 04/16/ | Office | Cardiology | Alin Anderson | | | 2019 | Visit | | MD [address] | | | | | | [place] [address] [place] | | | | | | [place] [address] | | | | | | [phone] | | | | | | | | +--------+ + + + + | 04/16/ | Procedure | Cardiology | | | 2019 | visit | | | | +--------+ + + + + | 04/25/ | Office | Cardiology | Rocio Pearl, | | | 2019 | Visit | | MD Cheryl URENA | | | | | | [place], [place] | | | | | | [address] | | | | | | | | +--------+ + + + + documented as of this encounter Visit Diagnoses + + | Diagnosis | + + | Tachycardia - Primary Tachycardia, unspecified | + + | Ischemic cardiomyopathy Other specified forms of chronic ischemic heart disease | + + | MANAGER IMAGE-D (GABBI) Medtronic 10/16/17 [facility] Darby | + + documented in this encounter"
--- OUTSIDE RECORDS SUMMARY | ~2020-03-04 | XMS | Encounter Summary ---
Demographics + + + | Address | [address] | | | [place] [address] | + + + | Home Phone [...] [place], [place] | | | | | [address] | | + + + + + Care Team Providers + +------+ + | Care Planer Setup Operator Name | Role | Phone | [...] | | | | CENTER [address] | [address] | reaction to | | | | [place], [place] | [place] | metoprolol, initial | | | | [address] | [address] | encounter | | | | [phone] | | | +--------+ + + + [...] 0 | | | | (VITAMIN D-3) [address] | mouth Once a week. | | [...] | | nasal spray | nasal spray [place] 2 | | | | | | [...] might be d ifferent from the original. [facility] Will Emergency Department Encounter Note [address] [place] [address] PCP:Young Haque DO x2500 eMERGENCY dEPARTMENT eNCOUnter [...] [facility] [place]. They st arted him on metoprolol up to 100 mg twice daily. Since then he's had significant weakness. 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 According to family he was on ECMO for an. Time after his last IN. He was in a coma for approximately [...] LE Angio; Surgeon: Khurram Canas MD; Location: [facility] CV LAB ANGIOPLASTY Left 05/19/2018 Procedure: CV PTCA Only; Surgeon: Khurram Canas MD; Location: [facility] CV LAB CARDIAC CATHERIZATION N/A 10/03/2017 Procedure: CV Cor Angio; Surgeon: Delmer Dai MD; Location: [facility] CV LAB CARDIAC CATHERIZATION N/A 03/15/2017 Procedure: CV Cor Angio; Surgeon: Monse Ross MD; Location: [facility] CV LAB CARDIAC CATHERIZATION Left 05/19/2018 Procedure: CV RHC; Surgeon: Khurram Canas MD; Location: [facility] CV LAB CARDIAC CATHERIZATION Left 05/19/2018 Procedure: CV FFR/iFR; Surgeon: Khurram Canas MD; Location: [facility] CV LAB CARDIAC CATHERIZATION Left 05/19/2018 Procedure: CV IVUS/OCT; Surgeon: Khurram Canas MD; Location: [facility] CV LAB ELBOW SURGERY Left GALLBLADDER SURGERY LEFT VENTRICULAR ASSIST DEVICE Right 05/19/2018 Procedure: CV PERC MECH CIRC SUPPORT; Surgeon: Khurram Canas MD; Location: [facility] CV LAB NASAL SEPTUM SURGERY TONSILLECTOMY UPPER GASTROINTESTINAL ENDOSCOPY N/A 10/05/2017 Procedure: EGD; Surgeon: Terry Weir MD; Location: [facility] MEDICAL PROCEDURE UNIT CURRENT MEDICATIONS Previous Medications ACETAMINOPHEN (TYLENOL) 500 MG TABLET Take 1,000 mg by mouth as needed. AMIODARONE (PACERONE) 200 MG TABLET Take 2 tablets by mouth Daily. ASPIRIN 81 MG TABLET Take 81 mg by mouth Daily. ATORVASTATIN (LIPITOR) 80 MG TABLET TAKE ONE TABLET BY MOUTH EVERY DAY IN THE EVENING CHOLECALCIFEROL (VITAMIN D-3) 29995 UNITS CAPS Take by mouth Once a [...] 42 mcg (0.06 %) nasal spra y [place] 2 sprays 3 times a day by [...] deficits noted, no facial assymetry noted. 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 Rate: 60 [place]: normal Ectopy: none Conduction: P wave normal, [...] this chart may have been created with Kiptronic voice recognition software. Occasi onal wrong-word or [...] [place] | | | | | | [address] | | | | | | | | +--------+ + + + + | 04/16/ | Office | Cardiology | Alin Anderson | | | 2019 | Visit | | MD Cheryl Arreguin | | | | | | [address] | | | | | | [place] [address] | | | | | | [phone] | | | | | | | [...] [place] | | | | | | [address] | | | | | | | [...] J?MRN: | | | | | | [id number] | | | [id number] | | | his | | | [...] | | | [id number] | | | [id number] | | | [id number] | | | [...] | | | St. | | | [place] | | | y H. | | [...] | | | St. | | | [place] | | | y H. | | [...] | | | St. | | | [place] | | | y H. | | [...] | | | St. | | | [place] | | | y H. | | [...] | | ce of | | | odraz | | | ry | | | [...] | | | St. | | | [place] | | | y | | | [...] | | | St. | | | [place] | | | y | | | [...] | | | [phone] | | | [phone] | | | .These | | | [...] - 1.030 | [facility] | | | [place], | | | [facility] | | [...] | | Urine | | | [facility] | | | | | | MEDICAL [...] [address] | [place] | [phone] | | [facility] | | [address] | | | - LABORATORY | | [...] [address] | [place] | [phone] | | [facility] | | [address] | | | - LABORATORY | | [...] | | | | FLORY العلي MD ([id number]) | | | | | | on [...] [address] | [place] | [phone] | | [facility] | | [address] | | | - LABORATORY | | [...] [address] | [place] | [phone] | | [facility] | | [address] | | | - LABORATORY | | [...] [address] | [place] | [phone] | | [facility] | | [address] | | | - LABORATORY | | [...] ST. | [address] | [place] | [phone] | | [facility] | | [address] | | | - LABORATORY | | [...] | Time | | seconds | [facility] | | | | | | MEDICAL [...] ST. | [address] | [place], [place] | [phone] | | [facility] | | [address] | | | - LABORATORY | | [...] [address] | [place] | [phone] | | [facility] | | [address] | | | - LABORATORY | | | | + + + + + D-Dimer (08/26/2018 11:33 AM PST) + + + + + + | Component | Value | Ref Range | Performed | Pathologist | | | | | At | Signature | + + + + + + | D-Dimer | 0.46Comment: This | <=0.50 ug/ml | [facility] | | | Quantitativ | quantitative D-Dimer | | [facility] | | | e | assay [...] [address] | [place] | [phone] | | [facility] | | [address] | | | - LABORATORY | | [...] + | [facility] | [address] | [place] | [phone] | | [facility] | | [address] | | | - LABORATORY | | [...] | | GLOMERULAR FILTRATION | mL/min/1.73m2 | [facility] | | | CHADIAN | RATE,ESTIMATED | | MEDICAL | | | | mL/min/1.33q4Prli than | | CENTER - | | [...] | | | | | mg/dL | [facility] | | | | | | MEDICAL | | | | | | CENTER - | | | | | | LABORATORY | | + + + + + + | Albumin | 3.5 | 3.2 - 5.0 g/dL | [facility] | | | | | | [facility] | | | | | [...] [address] | [place] | [phone] | | [facility] | | [address] | | | - LABORATORY | | [...] [address] | [place] | [phone] | | [facility] | | [address] | | | - LABORATORY | | [...]
--- OUTSIDE RECORDS SUMMARY | ~2020-03-04 | XMS | Encounter Summary ---
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
[~2020-03-04 23:00] MED LIST changes: +CARVEDILOL6.25 MG PO; +GABAPENTIN100 MG PO; +PEPCID20 MG PO
--- OUTSIDE RECORDS SUMMARY | 2020-03-04 23:04 | XMS ---
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 CARE PROVIDERS EDWARD FELICIANO [facility] Medicine 04/04/2019-Current PHONE: Unknown KIMMIE GONZALEZ Internal Medicine 01/11/2019-Current PHONE: [phone] JEROMY HERNANDES Internal Medicine: Pulmonary Disease 10/18/2018-Current PHONE: Unknown KAREN AYALA [facility] 06/22/2018-Current PHONE: Unknown Ananda has no Care Guidelines for this patient. Care History Medical/Surgical 11/10/2019 [facility] Patient was admitted. 01/11/2019 [facility] - PATIENT HAS AN APT WITH DR GONZALEZ ON 01/14/19 FOR FOLLOW UP TO ED VISITS. - PATIENT HAS DECLINED SERVICES FROM [facility]- CARDIAC REHAB. 10/18/2018 [facility] - Patient is currently established with [facility]. If patient is seen in the ED during business hours. Please contact CHWs at [facility]. Care Recommendation: This patient has had [...] providing care. E.D. VISIT COUNT (12 MO.) 3 [facility]. TOTAL 3 NOTE: Visits indicate total known visits. ED/C VISIT TRACKING (12 MO.) 03/04/2020 23:02 [facility] TYPE: Emergency COMPLAINT: - DIFFICULTY BREATHING, HEADACHE 11/10/2019 01:25 [facility] TYPE: Emergency COMPLAINT: - SOB 04/03/2019 21:21 [facility] TYPE: Emergency COMPLAINT: - LEFT LEG PAIN DIAGNOSES: - Old myocardial infarction - Presence of cardiac pacemaker - Presence of coronary angioplasty implant and graft - Other long-term (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 - Personal history of nicotine dependence - Pain in left leg - Essential (primary) hypertension INPATIENT VISIT TRACKING (12 MO.) 11/10/2019 01:26 [facility] [place] TYPE: Observation COMPLAINT: - CHF DIAGNOSES: - Acute respiratory failure with hypoxia - Acute kidney failure, unspecified - Acute on chronic systolic (congestive) heart failure - Chronic kidney disease, stage 4 (severe) - jail (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 of antithrombotics/antiplatelets - Hyperlipidemia, unspecified - Atherosclerotic heart disease of 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
--- NOTE | 2020-03-05 02:09 | NUR ---
REPORT RECEIVED FROM MARBELLA IN ED AT 0105. PT ARRIVED TO FLOOR VIA STRETCHER. PT IS ALERT AND ORIENTED, AMBULATES WITH SBA. PT IS ON TELE, SL IN R AC FLUSHES WELL AND IS PATENT, O2 PER NC AT 4L ON ARRIVAL AND THEN TITRATED TO 3L SPO2 WAS 98% AND PT REPORTS HE USES 3L AT HOME, VSS. ASSESSMENT COMPLETE. PT RATES PAIN 8/10 IN NECK D/T DISK DEGENERATION. PHONE CALL TO DR GONZALEZ FOR PRN PAIN MEDS. ORDERS RECEIVED FOR PRN PAIN MEDS, DIET AND FLUID RESTRICTION REPEATED BACK. PT VOIDED IN URINAL IN RESTROOM. CALL LIGHT WITHIN REACH.
--- NOTE | 2020-03-05 02:54 | NUR ---
PER PT REQUEST, PRN PAIN MEDS ADMINISTERED FOR 8/ CHRONIC NECK PAIN. PT STATES HE WILL ATTEMPT TO SLEEP NOW. CALL LIGHT AND BEDSIDE TABLE PLACED WITHIN REACH.
--- NOTE | 2020-03-05 04:06 | NUR ---
ROUNDS COMPLETED. PT SLEEPING, BREATHING EVEN AND NON LABORED. NO SIGNS OF DISTRESS. CALL LIGHT AND BEDSIDE TABLE WITHIN REACH.
--- NOTE | 2020-03-05 05:13 | NUR ---
NEW ADMIT TO FLOOR THIS SHIFT. PT IS COOPERATIVE, ALERT, ORIENTED AND APPROPRIATE. PT IS ON TELE AND O2 PER NC AND WAS SEEN SLEEPING AFTER PRN PAIN MEDS WERE ADMINISTERED. PT EXPERIENCES HEAT FLUCUTAIONS SO IS SLEEPING IN PARTIAL PAJAMAS AND SWEATSHIRT FROM HOME IN ADDITION TO HOSPITAL GOWN.
[2020-03-05] MEDS ORDERED: CARVEDILOL3.125 MG PO (07:25)
--- NOTE | 2020-03-05 07:25 | NUR ---
DR GONZALEZ IN TO SEE PT. PT SITTING UP ON EDGE OF BED VERBALIZES UNDERSTANDING OF DC INSTRUCTIONS. DENIES NEEDS AT THIS TIME
[2020-03-05] MEDS ORDERED: FAMOTIDINE10 MG PO (07:26)
[2020-03-05] MEDS ORDERED: LEVOTHYROXINE25 MCG PO (07:27)
[2020-03-05] MEDS ORDERED: AMIODARONE HCL200 MG PO (07:28)
[2020-03-05] MEDS ORDERED: KLOR-CON 1010 MEQ PO (07:33)
--- NOTE | 2020-03-07 14:39 | NUR ---
Heart failure f/u call to Bob Will completed today. He is "feeling real good". Weight is down 1 lb today. Patient has all of his medications and was able to state changes to potassium. Has transportation to f/u visit with PCP on 03/09/20. Reports keeping in touch with section chief and next appointment with Dr Pearl is in April. Encouraged patient to continue to follow lower sodium meal plan. Patient welcomed to call this service at any time.
--- NOTE | 2020-03-07 16:13 | EKG ---
[facility] [address] [place] [address] Signed Atrial-sensed ventricular-paced rhythm Biventricular pacemaker detected Abnormal ECG When compared with ECG of 10-NOV-2019 01:36, Vent. rate has decreased BY 4 BPM Confirmed by HUEY GORDON DO ([id number]) on 03/07/2020 4:13:18 PM Electronically Signed By: HUEY GORDON DO 03/07/20 1613 PATIENT NAME: RON MCKEON RACHEL Electrocardiogram DATE OF : 53 PHYSICIAN: HUEY GORDON DO REPORT #: [id number] REPORT IS CONFIDENTIAL AND NOT TO BE RELEASED WITHOUT AUTHORIZATION
== END 2020-03-05 08:20 | disposition home or self-care (01) ==
LOC: ED 23:00 → MS 23:03
PROVIDERS: ADMIT Internal Medicine
DX: I13.0 Hypertensive heart and chronic kidney disease with heart failure and stage 1 through stage 4 chronic kidney disease, or unspecified chronic kidney disease (principal); I50.23 Acute on chronic systolic (congestive) heart failure; I25.10 Atherosclerotic heart disease of native coronary artery without angina pectoris; N18.4 Chronic kidney disease, stage 4 (severe); D63.1 Anemia in chronic kidney disease; E78.5 Hyperlipidemia, unspecified; E03.9 Hypothyroidism, unspecified; G89.4 Chronic pain syndrome; J44.9 Chronic obstructive pulmonary disease, unspecified; Z79.82 Long term (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; Z79.899 Other long term (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; Z87.891 Personal history of nicotine dependence
CPT/HCPCS: 71045; 80053; 83735; 83880; 84484; 85025; 93005; 93010; 96374; 99285-25; C9803; G0378; J1940; U0002

== ENCOUNTER 2020-06-07 16:02 | Emergency (ER) | payer MEDICARE ==
[~2020-06-07] VITALS: Ht 175.3 cm; Wt 108.9 kg
[~2020-06-07 16:02] MED LIST changes: +ACID REDUCER20 MG PO; +BISACODYL5 MG PO; +COREG6.25 MG PO; +LACTULOSE10 GM/15 M PO; +LEVOTHYROXINE25 MCG PO; +METAMUCIL0.52 GM PO; +TYLOPHEN500 MG PO; +VITAMIN D31250 MC1 PO
--- OUTSIDE RECORDS SUMMARY | 2020-06-07 16:04 | XMS ---
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 Care History Medical/Surgical 03/13/2020 [facility] Request sent via ybuy to Dr. Gonzalez for albuterol nebulizor to help with any shortness of breath associated with this patient\T\#39;s COPD. 03/12/2020 [facility] Patient was just seen on 03/09/[address] Gonzalez.\T\nbsp; Patient was, again, admitted and observed. 03/06/2020 [facility] Patient was admitted.\T\nbsp; Follow up visit with PCP Dr. Gonzalez on E.D. VISIT COUNT (12 MO.) 4 [facility] H. TOTAL 4 NOTE: Visits indicate total known visits. ED/UCC VISIT TRACKING (12 MO.) 06/07/2020 16:03 [facility] [place] TYPE: Emergency COMPLAINT: - L ARM PAIN 03/10/2020 02:14 [facility] [place] TYPE: Emergency COMPLAINT: - SHORTNESS OF BREATH 03/04/2020 23:02 [facility] [place] TYPE: Emergency COMPLAINT: - DIFFICULTY BREATHING, HEADACHE 11/10/2019 01:25 [facility] [place] TYPE: Emergency COMPLAINT: - SOB INPATIENT VISIT TRACKING (12 MO.) 03/10/2020 02:15 [facility] [place] TYPE: Observation COMPLAINT: - CHF EXACERBATION DIAGNOSES: - Personal history of nicotine dependence - Acute on chronic systolic (congestive) heart failure - Chronic obstructive pulmonary disease, unspecified - Old myocardial infarction - Cervicalgia - Hypertensive heart disease with heart failure - Other longterm (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 - Atherosclerotic heart disease of [place] coronary artery witho - Hyperlipidemia, unspecified - Presence of coronary angioplasty implant and graft - Other chronic pain - Presence of cardiac pacemaker - 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 control service representative (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 - Contact with and (suspected) exposure to other viral communic 03/04/2020 23:03 [facility] [place] TYPE: Observation COMPLAINT: - CHF DIAGNOSES: - Hyperlipidemia, unspecified - Chronic kidney disease, stage 4 (severe) - correction (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 - Anemia in chronic kidney disease - Atherosclerotic heart disease of [place] coronary artery witho - Acute on chronic systolic (congestive) heart failure - Chronic pain syndrome - Hypothyroidism, unspecified - Chronic obstructive pulmonary disease, unspecified - Hypertensive heart and chronic kidney disease with heart fail - Personal history of nicotine dependence - Other longterm (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 11/10/2019 01:26 [facility] [place] TYPE: Observation COMPLAINT: - CHF DIAGNOSES: - Acute respiratory failure with hypoxia - Acute kidney failure, unspecified - Acute on chronic systolic (congestive) heart failure - Chronic kidney disease, stage 4 (severe) - termite control service representative (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 of antithrombotics/antiplatelets - Hyperlipidemia, unspecified - Atherosclerotic heart disease of [place] coronary artery witho - Other longterm (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 - Anemia in chronic kidney disease - Gastro-esophageal reflux disease without esophagitis - Chronic pain syndrome - Presence of coronary angioplasty implant and graft - termite control service representative (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 - Shortness of breath [email or web address]
--- NOTE | 2020-06-08 13:59 | EKG ---
[facility] [address] [place], [place] [address] Signed Atrial-sensed ventricular-paced rhythm Biventricular pacemaker detected Abnormal ECG Confirmed by HUEY GORDON DO ([id number]) on 06/08/2020 1:59:20 PM Electronically Signed By: HUEY GORDON DO 06/08/20 1359 PATIENT NAME: RON MCKEON Electrocardiogram DATE OF : 53 PHYSICIAN: HUEY GORDON DO REPORT #: [id number] REPORT IS CONFIDENTIAL AND NOT TO BE RELEASED WITHOUT AUTHORIZATION
== END 2020-06-07 18:01 | disposition home or self-care (01) ==
LOC: ED 16:02
DX: M79.602 Pain in left arm (principal); I25.2 Old myocardial infarction; I11.0 Hypertensive heart disease with heart failure; J44.9 Chronic obstructive pulmonary disease, unspecified; I50.9 Heart failure, unspecified; Z79.899 Other long term (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; Z79.82 Long term (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
CPT/HCPCS: 71045; 80053; 83735; 84484; 85025; 93005; 93010; 99284-25

== ENCOUNTER 2020-09-13 01:33 | Observation (INO) | payer MEDICARE ==
[~2020-09-13] VITALS: Ht 175.3 cm; Wt 90.5 kg
--- OUTSIDE RECORDS SUMMARY | 2020-09-13 01:36 | XMS ---
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 Care History Medical/Surgical 06/11/2020 [facility] Patient has follow up with PCP Dr. Gonzalez on 06/12/2020. 03/13/2020 [facility] Request sent via [employer] to Dr. Gonzalez for albuterol nebulizor to help with any shortness of breath associated with this patient\T\#39;s COPD. 03/12/2020 [facility] Patient was just seen on 03/09/[address] Gonzalez.\T\nbsp; Patient was, again, admitted and observed. E.D. VISIT COUNT (12 MO.) 5 [facility] H. TOTAL 5 NOTE: Visits indicate total known visits. ED/UCC VISIT TRACKING (12 MO.) 09/13/2020 01:34 [facility] [place] TYPE: Emergency COMPLAINT: - CHEST PAIN 06/07/2020 16:03 [facility] [place] TYPE: Emergency COMPLAINT: - L ARM PAIN DIAGNOSES: - Chronic obstructive pulmonary disease, unspecified - Other coffee weigher (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 - Pain in left arm - Heart failure, unspecified - Hypertensive heart disease with heart failure - halfway (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 - Old myocardial infarction 03/10/2020 02:14 [facility] [place] TYPE: Emergency [...] heart disease with heart failure - Other assisted (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 - Atherosclerotic heart disease of [place] coronary artery without angina pectoris - Hyperlipidemia, unspecified - Presence of coronary angioplasty implant and graft - Other chronic pain - Presence of cardiac pacemaker - halfway (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 - Contact with and (suspected) exposure to other viral communicable diseases 03/04/2020 23:03 [facility] [place] TYPE: Observation COMPLAINT: - CHF DIAGNOSES: - Hyperlipidemia, unspecified - Chronic kidney disease, stage 4 (severe) - halfway (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 - Anemia in chronic kidney disease - Atherosclerotic heart disease of [place] coronary artery without angina pectoris - Acute on chronic systolic (congestive) heart failure - Chronic pain syndrome - Hypothyroidism, unspecified - Contact with and (suspected) exposure to other viral communicable diseases - Chronic obstructive pulmonary disease, unspecified - Hypertensive heart and chronic kidney disease with heart failure and stage 1 through stage 4 chronic kidney disease, or unspecified chronic kidney disease - Personal history of nicotine dependence - Other assisted (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 11/10/2019 01:26 [facility] [place] TYPE: Observation COMPLAINT: - CHF DIAGNOSES: - Acute respiratory failure with hypoxia - Acute kidney failure, unspecified - Acute on chronic systolic (congestive) heart failure - Chronic kidney disease, stage 4 (severe) - college hire (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 of antithrombotics/antiplatelets - Hyperlipidemia, unspecified - Atherosclerotic heart disease of [place] coronary artery without angina pectoris - Other coffee weigher (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 - Anemia in chronic kidney disease - Gastro-esophageal reflux disease without esophagitis - Chronic pain syndrome - Presence of coronary angioplasty implant and graft - college hire (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 - Shortness of breath [email or web address]
[2020-09-13] MEDS ORDERED: LEVOTHYROXINE25 MCG PO (02:05)
[2020-09-13] MEDS ORDERED: METOLAZONE2.5 MG PO (11:48)
--- NOTE | 2020-09-13 17:35 | EKG ---
[facility] [address] [place] [address] Signed Atrial-sensed ventricular-paced rhythm Abnormal ECG When compared with ECG of 07-JUN-2020 16:19, Vent. rate has increased BY 29 BPM Confirmed by KIMMIE GONZALEZ MD ([id number]) on 09/13/2020 5:35:15 PM Electronically Signed By: KIMMIE GONZALEZ MD 09/13/20 1735 PATIENT NAME: RON MCKEON Electrocardiogram DATE OF : 53 PHYSICIAN: KIMMIE GONZALEZ MD REPORT #: [id number] REPORT IS CONFIDENTIAL AND NOT TO BE RELEASED WITHOUT AUTHORIZATION
[2020-09-14] MEDS ORDERED: LEVOTHYROXINE50 MCG PO (13:30)
== END 2020-09-14 14:43 | disposition home or self-care (01) ==
LOC: ED 01:33 → CCU 01:35 → MS 16:38
PROVIDERS: ADMIT Internal Medicine; ATTEND Internal Medicine
DX: I50.23 Acute on chronic systolic (congestive) heart failure (principal); I12.9 Hypertensive chronic kidney disease with stage 1 through stage 4 chronic kidney disease, or unspecified chronic kidney disease; I25.10 Atherosclerotic heart disease of native coronary artery without angina pectoris; I25.2 Old myocardial infarction; N18.4 Chronic kidney disease, stage 4 (severe); D63.1 Anemia in chronic kidney disease; J96.01 Acute respiratory failure with hypoxia; E78.5 Hyperlipidemia, unspecified; R73.03 Prediabetes; E05.80 Other thyrotoxicosis without thyrotoxic crisis or storm; T38.1X5A Adverse effect of thyroid hormones and substitutes, initial encounter; G89.4 Chronic pain syndrome; E55.9 Vitamin D deficiency, unspecified; Z79.02 Long term (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 of antithrombotics/antiplatelets; Z79.82 Long term (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; Z79.899 Other long term (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; Z20.822 Contact with and (suspected) exposure to COVID-19; Z95.5 Presence of coronary angioplasty implant and graft; Z95.810 Presence of automatic (implantable) cardiac defibrillator
CPT/HCPCS: 36415; 71045; 80048; 80053; 80061; 83036; 83605; 83880; 84439; 84443; 84484; 85025; 93005; 93010; 93306; 94660; 94760; 94761; 96372; 96374; 96375; 96376; 99285-25; C9803; G0378; J1650; J1815; J1940; J2405; J7040; Q9957; U0003

== ENCOUNTER 2020-10-22 13:02 | Emergency (ER) | payer MEDICARE ==
[~2020-10-22] VITALS: Ht 175.3 cm; Wt 90.5 kg
[~2020-10-22 13:02] MED LIST changes: +LEVOTHYROXINE50 MCG PO
--- OUTSIDE RECORDS SUMMARY | 2020-10-22 13:04 | XMS ---
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 Care History Medical/Surgical 06/11/2020 [facility] Patient has follow up with PCP Dr. Gonzalez on 06/12/2020. 03/13/2020 [facility] Request sent via [email or web address] to Dr. Gonzalez for albuterol nebulizor to help with any shortness of breath associated with this patient\T\#39;s COPD. 03/12/2020 [facility] Patient was just seen on 03/09/[address] Gonzalez.\T\nbsp; Patient was, again, admitted and observed. E.D. VISIT COUNT (12 MO.) 6 [facility] H. TOTAL 6 NOTE: Visits indicate total known visits. ED/UCC VISIT TRACKING (12 MO.) 10/22/2020 13:[address] 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 - Old myocardial infarction 03/10/2020 02:14 [facility] [place] TYPE: Emergency COMPLAINT: - SHORTNESS OF BREATH 03/04/2020 23:02 [facility] [place] TYPE: Emergency COMPLAINT: - DIFFICULTY BREATHING, HEADACHE 11/10/2019 01:25 [facility] [place] TYPE: Emergency COMPLAINT: - SOB INPATIENT VISIT TRACKING (12 MO.) 09/13/2020 01:35 [facility] [place] TYPE: Observation COMPLAINT: - DECOMPENSATED CHF DIAGNOSES: - Anemia in chronic kidney disease - Presence of automatic (implantable) cardiac defibrillator - [facility] (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 - Hyperlipidemia, unspecified - Chronic pain syndrome - Other care home (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 - Presence of coronary angioplasty implant and graft - Hypertensive chronic kidney disease with stage 1 through stage 4 chronic kidney disease, or unspecified chronic kidney disease - Prediabetes - Chronic kidney disease, stage 4 (severe) - Hypertensive heart and chronic kidney disease with heart failure and stage 1 through stage 4 chronic kidney disease, or unspecified chronic kidney disease - Acute respiratory failure with hypoxia - Other thyrotoxicosis without thyrotoxic crisis or storm - Acute on chronic systolic (congestive) heart failure - Adverse effect of thyroid hormones and substitutes, initial encounter - Coronary angioplasty status - Old myocardial infarction - Vitamin D deficiency, unspecified - Atherosclerotic heart disease of [place] coronary artery without angina pectoris - 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 (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 of antithrombotics/antiplatelets 03/10/2020 02:15 [facility] [place] TYPE: Observation COMPLAINT: - CHF EXACERBATION DIAGNOSES: - Personal history of nicotine dependence - Acute on chronic systolic (congestive) heart failure - Chronic obstructive pulmonary disease, unspecified - Old myocardial infarction - Cervicalgia - Hypertensive heart disease with heart failure - Other care home (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 - Atherosclerotic heart disease of [place] coronary artery without angina pectoris - Hyperlipidemia, unspecified - Presence of coronary angioplasty implant and graft - Other chronic pain - Presence of cardiac pacemaker - [facility] (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 - Contact with and (suspected) exposure to other viral communicable diseases 03/04/2020 23:03 [facility] [place] TYPE: Observation COMPLAINT: - CHF DIAGNOSES: - Hyperlipidemia, unspecified - Chronic kidney disease, stage 4 (severe) - 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 (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 - Anemia in chronic kidney disease - Atherosclerotic heart disease of [place] coronary artery without angina pectoris - Acute [...] Personal history of nicotine dependence - Other terminal manager (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 11/10/2019 01:26 [facility] [place] TYPE: Observation COMPLAINT: - CHF DIAGNOSES: - Acute respiratory failure with hypoxia - Acute kidney failure, unspecified - Acute on chronic systolic (congestive) heart failure - Chronic kidney disease, stage 4 (severe) - 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 (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 of antithrombotics/antiplatelets - Hyperlipidemia, unspecified - Atherosclerotic heart disease of [place] coronary artery without angina pectoris - Other terminal manager (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 - Anemia in chronic kidney disease - Gastro-esophageal reflux disease without esophagitis - Chronic pain syndrome - Presence of coronary angioplasty implant and graft - 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 (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
[2020-10-22] MEDS ORDERED: REGLAN10 MG PO (15:25)
[2020-10-22] MEDS ORDERED: LACTULOSE10 GM/15 M PO (15:43)
[2020-10-22] MEDS ORDERED: HYDROCODON-ACE1 EAC8 PO (15:44)
[2020-10-22] MEDS ORDERED: ULTRAM50 MG PO (15:44)
== END 2020-10-22 15:45 | disposition home or self-care (01) ==
LOC: ED 13:02
DX: H81.12 Benign paroxysmal vertigo, left ear (principal); I25.2 Old myocardial infarction; I11.0 Hypertensive heart disease with heart failure; I50.9 Heart failure, unspecified; J44.9 Chronic obstructive pulmonary disease, unspecified; Z87.891 Personal history of nicotine dependence; Z79.899 Other long term (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; Z79.82 Long term (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
CPT/HCPCS: 96374; 99284-25; J2765; J7040

== ENCOUNTER 2020-11-16 18:29 | Emergency (ER) | payer MEDICARE ==
[~2020-11-16] VITALS: Ht 175.3 cm; Wt 95.5 kg
[~2020-11-16 18:29] MED LIST changes: +MECLIZINE HCL12.5 MG PO; +METAMUCIL0.4 GM PO
--- OUTSIDE RECORDS SUMMARY | 2020-11-16 18:32 | XMS ---
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 Care History Medical/Surgical 06/11/2020 [facility] Patient has follow up with PCP Dr. Gonzalez on 06/12/2020. 03/13/2020 [facility] Request sent via [employer] to Dr. Gonzalez for albuterol nebulizor to help with any shortness of breath associated with this patient\T\#39;s COPD. 03/12/2020 [facility] Patient was just seen on 03/09/[address] Gonzalez.\T\nbsp; Patient was, again, admitted and observed. E.D. VISIT COUNT (12 MO.) [address] [facility] H. TOTAL 7 NOTE: Visits indicate total known visits. ED/UCC VISIT TRACKING (12 MO.) 11/16/2020 18:29 [facility] TYPE: Emergency COMPLAINT: - HALLUCINATIONS 11/08/2020 09:54 [facility] TYPE: Emergency COMPLAINT: - SOB 10/22/2020 13:02 [facility] TYPE: Emergency COMPLAINT: - FLU SYMPTOMS DIAGNOSES: - Hypertensive heart disease with heart failure - Heart failure, unspecified - Old myocardial infarction - Chronic obstructive pulmonary disease, unspecified - Personal history of nicotine dependence - Other detention (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 - Benign paroxysmal vertigo, left ear - long term care pharmacist (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 - Dizziness and giddiness 09/13/2020 01:34 [facility] TYPE: Emergency COMPLAINT: - CHEST PAIN 06/07/2020 16:03 [facility] TYPE: Emergency COMPLAINT: - L ARM PAIN DIAGNOSES: - Chronic obstructive pulmonary disease, unspecified - Other meterman (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 - Pain in left arm - Heart failure, unspecified - Hypertensive heart disease with heart failure - senior care (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 - Old myocardial infarction 03/10/2020 02:14 [facility] [place] TYPE: Emergency COMPLAINT: - SHORTNESS OF BREATH 03/04/2020 23:02 [facility] [place] TYPE: Emergency COMPLAINT: - DIFFICULTY BREATHING, HEADACHE INPATIENT VISIT TRACKING (12 MO.) 11/08/2020 09:55 [facility] TYPE: Observation COMPLAINT: - CHF ACUTE/CHRONIC SYSTOLIC DIAGNOSES: - Presence of coronary angioplasty implant and graft - Acute on chronic systolic (congestive) heart failure - Vitamin D deficiency, unspecified - Hypertensive heart and chronic kidney disease with heart failure and stage 1 through stage 4 chronic kidney disease, or unspecified chronic kidney disease - senior care (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 - Hypothyroidism, unspecified - Other chronic pain - Hypo-osmolality and hyponatremia - Chronic obstructive pulmonary disease, unspecified - Presence of automatic (implantable) cardiac defibrillator - Atherosclerotic heart disease of [place] coronary artery without angina pectoris - senior care (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 of antithrombotics/antiplatelets - Chronic kidney disease, stage 4 (severe) - Hyperlipidemia, unspecified - Anemia in chronic kidney disease - Pure hypercholesterolemia, unspecified 09/13/2020 01:35 [facility] TYPE: Observation COMPLAINT: - DECOMPENSATED CHF DIAGNOSES: - Anemia in chronic kidney disease - Presence of automatic (implantable) cardiac defibrillator - senior care (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 - Hyperlipidemia, unspecified - Chronic pain syndrome - Other detention (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 - Presence of coronary [...] deficiency, unspecified - Atherosclerotic heart disease of [place] coronary artery without angina pectoris - senior care (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 of antithrombotics/antiplatelets 03/10/2020 02:15 [facility] TYPE: Observation COMPLAINT: - CHF EXACERBATION DIAGNOSES: - Personal history of nicotine dependence - Acute on chronic systolic (congestive) heart failure - Chronic obstructive pulmonary disease, unspecified - Old myocardial infarction - Cervicalgia - Hypertensive heart disease with heart failure - Other detention (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 - Atherosclerotic heart disease of [place] coronary artery without angina pectoris - Hyperlipidemia, unspecified - Presence of coronary angioplasty implant and graft - Other chronic pain - Presence of cardiac pacemaker - long term care pharmacist (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 - Contact with and (suspected) exposure to other viral communicable diseases 03/04/2020 23:03 [facility] [place] TYPE: Observation COMPLAINT: - CHF DIAGNOSES: - Hyperlipidemia, unspecified - Chronic kidney disease, stage 4 (severe) - long term care pharmacist (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 - Anemia in chronic kidney disease - Atherosclerotic heart disease of [place] coronary artery without angina pectoris - Acute [...] dependence - Other meterman (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 [email or web address]
[2020-11-16] MEDS ORDERED: HYDROCODON-ACE1 EA10 PO (22:13)
== END 2020-11-16 22:29 | disposition home or self-care (01) ==
LOC: ED 18:29
DX: M79.605 Pain in left leg (principal); G25.3 Myoclonus; I25.2 Old myocardial infarction; I11.0 Hypertensive heart disease with heart failure; J44.9 Chronic obstructive pulmonary disease, unspecified; I50.9 Heart failure, unspecified; Z87.891 Personal history of nicotine dependence; Z79.899 Other long term (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; Z79.82 Long term (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
CPT/HCPCS: 70450; 80053; 83735; 85025; 99284-25

== ENCOUNTER 2020-12-15 17:34 | Emergency (ER) | payer MEDICARE ==
[~2020-12-15] VITALS: Ht 175.3 cm; Wt 95.5 kg
[~2020-12-15 17:34] MED LIST changes: +HYDROCODON-ACE1 EA10 PO
--- OUTSIDE RECORDS SUMMARY | 2020-12-15 17:36 | XMS ---
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 Care History Medical/Surgical 06/11/2020 [facility] Patient has follow up with PCP Dr. Gonzalez on 06/12/2020. 03/13/2020 [facility] Request sent via [employer] to Dr. Gonzalez for albuterol nebulizor to help with any shortness of breath associated with this patient\T\#39;s COPD. 03/12/2020 [facility] Patient was just seen on 03/09/[address] Gonzalez.\T\nbsp; Patient was, again, admitted and observed. E.D. VISIT COUNT (12 MO.) 8 [facility] H. TOTAL 8 NOTE: Visits indicate total known visits. ED/UCC VISIT TRACKING (12 MO.) 12/15/2020 17:34 [facility] TYPE: Emergency COMPLAINT: - LT LEG PAIN 11/16/2020 18:29 [facility] TYPE: Emergency COMPLAINT: - LEG PN DIAGNOSES: - Old myocardial infarction - Other penitentiary (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 - Myoclonus - Personal history of nicotine dependence - Hypertensive heart disease with heart failure - Heart failure, unspecified - Chronic obstructive pulmonary disease, unspecified - Pain in left leg - snf (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 11/08/2020 09:54 [facility] TYPE: Emergency COMPLAINT: - SOB 10/22/2020 13:02 [facility] TYPE: Emergency COMPLAINT: - FLU SYMPTOMS DIAGNOSES: - Hypertensive heart disease with heart failure - Heart failure, unspecified - Old myocardial infarction - Chronic obstructive pulmonary disease, unspecified - Personal history of nicotine dependence - Other termite renewal inspector (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 - Benign paroxysmal vertigo, left ear - snf (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 - Dizziness and giddiness 09/13/2020 01:34 [facility] TYPE: Emergency COMPLAINT: - CHEST PAIN 06/07/2020 16:03 [facility] TYPE: Emergency COMPLAINT: - L ARM PAIN DIAGNOSES: - Chronic obstructive pulmonary disease, unspecified - Other penitentiary (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 - Pain in left arm - Heart failure, unspecified - Hypertensive heart disease with heart failure - petroleum terminal plant operator (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 - Old myocardial [...] disease, or unspecified chronic kidney disease - snf (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 - Hypothyroidism, unspecified - Other chronic pain - Hypo-osmolality and hyponatremia - Chronic obstructive pulmonary disease, unspecified - Presence of automatic (implantable) cardiac defibrillator - Atherosclerotic heart disease of [place] coronary artery without angina pectoris - snf (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 of antithrombotics/antiplatelets - Chronic kidney disease, stage 4 (severe) - Hyperlipidemia, unspecified - Anemia in chronic kidney disease - Pure hypercholesterolemia, unspecified 09/13/2020 01:35 [facility] TYPE: Observation COMPLAINT: - DECOMPENSATED CHF DIAGNOSES: - Anemia in chronic kidney disease - Presence of automatic (implantable) cardiac defibrillator - snf (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 - Hyperlipidemia, unspecified - Chronic pain syndrome - Other termite renewal inspector (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 - Presence of coronary [...] deficiency, unspecified - Atherosclerotic heart disease of [place] coronary artery without angina pectoris - snf (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 of antithrombotics/antiplatelets 03/10/2020 02:15 [facility] TYPE: Observation COMPLAINT: - CHF EXACERBATION DIAGNOSES: - Personal history of nicotine dependence - Acute on chronic systolic (congestive) heart failure - Chronic obstructive pulmonary disease, unspecified - Old myocardial infarction - Cervicalgia - Hypertensive heart disease with heart failure - Other termite renewal inspector (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 - Atherosclerotic heart disease of [place] coronary artery without angina pectoris - Hyperlipidemia, unspecified - Presence of coronary angioplasty implant and graft - Other chronic pain - Presence of cardiac pacemaker - snf (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 - Contact with and (suspected) exposure to other viral communicable diseases 03/04/2020 23:03 [facility] TYPE: Observation COMPLAINT: - CHF DIAGNOSES: - Hyperlipidemia, unspecified - Chronic kidney disease, stage 4 (severe) - petroleum terminal plant operator (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
[2020-12-15] MEDS ORDERED: ULTRAM50 MG PO (20:11)
== END 2020-12-15 20:32 | disposition home or self-care (01) ==
LOC: ED 17:34
DX: G89.29 Other chronic pain (principal); M79.605 Pain in left leg; I11.0 Hypertensive heart disease with heart failure; I25.2 Old myocardial infarction; I50.9 Heart failure, unspecified; J44.9 Chronic obstructive pulmonary disease, unspecified; Z79.899 Other long term (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; Z79.82 Long term (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
CPT/HCPCS: 99283

== ENCOUNTER 2021-01-24 02:57 | Observation (INO) | payer OTHER ==
[~2021-01-24] VITALS: Ht 175.3 cm; Wt 92.9 kg
--- OUTSIDE RECORDS SUMMARY | 2021-01-24 03:02 | XMS ---
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 Care History Medical/Surgical 06/11/2020 [facility] Patient has follow up with PCP Dr. Gonzalez on 06/12/2020. 03/13/2020 [facility] Request sent via [employer] to Dr. Gonzalez for albuterol nebulizor to help with any shortness of breath associated with this patient\T\#39;s COPD. 03/12/2020 [facility] Patient was just seen on 03/09/[address] Gonzalez.\T\nbsp; Patient was, again, admitted and observed. E.D. VISIT COUNT (12 MO.) 9 [facility] H. TOTAL 9 NOTE: Visits indicate total known visits. ED/UCC VISIT TRACKING (12 MO.) 01/24/2021 02:57 [facility] TYPE: Emergency COMPLAINT: - DIFFICULTY BREATHING 12/15/2020 17:34 [facility] TYPE: Emergency COMPLAINT: - LT LEG PAIN DIAGNOSES: - Other chronic pain - Other half-way (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 - Pain in left leg - Chronic obstructive pulmonary disease, unspecified - extermination inspector (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 - Heart failure, unspecified - Hypertensive heart disease with heart failure - Old myocardial infarction 11/16/2020 18:29 [facility] TYPE: Emergency COMPLAINT: - LEG PN DIAGNOSES: - Old myocardial infarction - Other terminal carman (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 - Myoclonus - Personal history of nicotine dependence - Hypertensive heart disease with heart failure - Heart failure, unspecified - Chronic obstructive pulmonary disease, unspecified - Pain in left leg - extermination inspector (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 11/08/2020 09:54 [facility] TYPE: Emergency COMPLAINT: - SOB 10/22/2020 13:02 [facility] TYPE: Emergency COMPLAINT: - FLU SYMPTOMS DIAGNOSES: - Hypertensive heart disease with heart failure - Heart failure, unspecified - Old myocardial infarction - Chronic obstructive pulmonary disease, unspecified - Personal history of nicotine dependence - Other half-way (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 - Benign paroxysmal vertigo, left ear - assisted (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 - Dizziness and giddiness 09/13/2020 01:34 [facility] TYPE: Emergency COMPLAINT: - CHEST PAIN 06/07/2020 16:03 [facility] TYPE: Emergency COMPLAINT: - L ARM PAIN DIAGNOSES: - Chronic obstructive pulmonary disease, unspecified - Other half-way (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 - Pain in left arm - Heart failure, unspecified - Hypertensive heart disease with heart failure - assisted (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 - Old myocardial [...] disease, or unspecified chronic kidney disease - extermination inspector (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 - Hypothyroidism, unspecified - Other chronic pain - Hypo-osmolality and hyponatremia - Chronic obstructive pulmonary disease, unspecified - Presence of automatic (implantable) cardiac defibrillator - Atherosclerotic heart disease of [place] coronary artery without angina pectoris - assisted (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 of antithrombotics/antiplatelets - Chronic kidney disease, stage 4 (severe) - Hyperlipidemia, unspecified - Anemia in chronic kidney disease - Pure hypercholesterolemia, unspecified 09/13/2020 01:35 [facility] TYPE: Observation COMPLAINT: - DECOMPENSATED CHF DIAGNOSES: - Anemia in chronic kidney disease - Presence of automatic (implantable) cardiac defibrillator - assisted (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 - Hyperlipidemia, unspecified - Chronic pain syndrome - Other half-way (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 - Presence of coronary [...] deficiency, unspecified - Atherosclerotic heart disease of [place] coronary artery without angina pectoris - assisted (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 of antithrombotics/antiplatelets 03/10/2020 02:15 [facility] TYPE: Observation COMPLAINT: - CHF EXACERBATION DIAGNOSES: - Personal history of nicotine dependence - Acute on chronic systolic (congestive) heart failure - Chronic obstructive pulmonary disease, unspecified - Old myocardial infarction - Cervicalgia - Hypertensive heart disease with heart failure - Other terminal carman (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 - Atherosclerotic heart disease of [place] coronary artery without angina pectoris - Hyperlipidemia, unspecified - Presence of coronary angioplasty implant and graft - Other chronic pain - Presence of cardiac pacemaker - extermination inspector (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 - Contact with and (suspected) exposure to other viral communicable diseases 03/04/2020 23:03 [facility] TYPE: Observation COMPLAINT: - CHF DIAGNOSES: - Hyperlipidemia, unspecified - Chronic kidney disease, stage 4 (severe) - extermination inspector (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 - Anemia in chronic kidney disease - Atherosclerotic heart disease of [place] coronary artery without angina pectoris - Acute [...] history of nicotine dependence - Other terminal carman (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 [email or web address]
--- NOTE | 2021-01-24 12:30 | NUR ---
PATIENT ARRIVED TO THE CC[facility] ROOM 127 VIA WHEELCHAIR WITH THE FREQUENCY CHECKER. PATIENT ABLE TO STAND AND TRANSFER HIMSELF WITH NO ISSUES. PATIENT VERY CHATTY WITH STAFF. PATIENTS RR EVEN AND UNLABORED. PATIENT ARRIVED ON HIS NORMAL OXYGEN AMOUNT OF 3L NC. WILL CALL RT TO HAVE CPAP AT THE BEDSIDE. WILL CONTINUE TO CLOSELY MONITOR.
--- NOTE | 2021-01-24 14:00 | NUR ---
PATIENT LUNCH FINISHED. PATIENT TOELRATED WELL. PATIENT SITTING UP AT THE EDGE OF THE BED ON HIS CELLPHONE. PATIENT DENIES ANY NEEDS AT THIS TIME. WILL CONTINUE TO CLOSELY MONITOR.
--- NOTE | 2021-01-24 15:16 | NUR ---
PT USES CALL LIGHT, IN TO ASSESS, PT REPORTS EXTREME LEFT LEG PAIN 9/10. NORCO PRN ADMINISTERED. URINAL EMPTIED. NO ADDITIONAL NEEDS AT THIS TIME.
--- NOTE | 2021-01-24 15:37 | NUR ---
MED REC COMPLETE
--- NOTE | 2021-01-24 16:00 | NUR ---
PATIENT ORDERED DINNER. PATIENTS ASSESSMENT COMPLETED. PATIENTS BREATH SOUNDS MORE CLEAR THIS EVENING. PATIENT REMAINS ON HIS NORMAL HOME OXYGEN AT 3L. PATIENT AGREEABLE TO PLAN OF CARE. ALL QUESTIONS ANSWERED. WILL CONTINUE TO CLOSELY MONITOR.
[2021-01-24] MEDS ORDERED: CARBOXYMETHYLCE15 ML OU (16:56)
[2021-01-24] MEDS ORDERED: ALLERGY EYE DRO10 M1 OU (16:57)
[2021-01-24] MEDS ORDERED: NARCAN4 MG NAS (16:58)
[2021-01-24] MEDS ORDERED: ULTRAM50 MG PO (16:59)
--- NOTE | 2021-01-24 18:00 | NUR ---
PATIENT EATING DINNER AT THIS TIME. VISITED WITH PATIENT ABOUT PLAN OF CARE. WILL CONTINUE TO CLOSELY MONITOR. PATIENTS RR 16. EVEN AND UNLABORED. PATIENT DENIES SOB. WILL CONTINUE TO CLOSELY MONITOR.
--- NOTE | 2021-01-24 19:05 | NUR ---
RECEIVE REPORT FROM DAY SHIFT RN. PATIENT IS SITTINT AT THE BEDSIDE VISITING WITH HIS . NO NEEDS NOTED. CALL LIGHT IN REACH.
--- NOTE | 2021-01-24 21:03 | NUR ---
ASSSEMENT COMPLETED. PATIENT IS SITTING ON THE EDGE OF THE BED EATING A SNACK. PATIENTS IS PRESENT IN THE ROOM. PATIENT DENIES ANY SOB. PATIENT REMAINS ON 3L VIA NC. VITALS TAKEN AND RECORDED. INTAKE AND OUPUT RECORDED. PLACED CALL TO MD TO REQUEST PATIENTS NIGHT HOME MEDICATION. NEW ORDER RECEIVED. VERIFIED ORDER USING THE READBACK METHOD. PATIENT DENIES ANY NEEDS AT THIS TIME. CALL LIGHT IN REACH. REMAINS IN THE ROOM.
--- NOTE | 2021-01-24 21:50 | NUR ---
PATIENT GIVEN SHCEDULED MEDICATIONS PER ORDER. PATIENT REPORTS 3/10 PAIN IN HIS BILAT KNEES. PRN PAIN MEDICATION GIVEN PER ORDER. NO FURTHER NEEDS NOTED. CALL LIGHT IN REACH.
--- NOTE | 2021-01-24 22:22 | EKG ---
[facility] [address] [place] [address] Signed Atrial-sensed ventricular-paced rhythm Biventricular pacemaker detected Abnormal ECG When compared with ECG of 08-NOV-2020 10:49, Vent. rate has increased BY 50 BPM Confirmed by NEREYDA VELEZ MD ([id number] on 01/24/2021 10:22:05 PM Electronically Signed By: NEREYDA VELEZ MD 01/24/212221 PATIENT NAME: RON MCKEON Electrocardiogram DATE OF : 53 PHYSICIAN: NEREYDA VELEZ MD REPORT #: [id number] REPORT IS CONFIDENTIAL AND NOT TO BE RELEASED WITHOUT AUTHORIZATION
--- NOTE | 2021-01-24 22:37 | NUR ---
PATIENT IS RESTING IN BED WITH EYES CLOSED, BREATHING IS EVEN AND UNLABORED. RR 17. CALL LIGHT IN REACH.
--- NOTE | 2021-01-25 00:07 | NUR ---
PATIENT IS SITTING AT THE EDGE OF THE BED. PATIENT IS WATCHING VIDEO ON HIS PHONE. PATIENT DENIES ANY SOB. PATIENT DENIES ANY PAIN. VITALS TAKEN AND RECORDED. URINAL EMPTIED. INTAKE AND OUTPUT RECORDED. PATIENT DENIES ANY NEEDS. CALL LIGHT AND BELINGINGS WITHIN REACH.
--- NOTE | 2021-01-25 02:36 | NUR ---
PATIENT IS RESTING IN BED WITH EYES CLOSED, RR 16. CALL LIGHT IN REACH.
--- NOTE | 2021-01-25 05:17 | NUR ---
VITALS TAKEN AND RECORDED. INTAKE AND OUPUT RECORDED. PATIENT DENIES ANY SOB. PATIENT REMAINS ON 3L VVIA NC. PATIENT RATES PAIN AT A 3/10 AND DENIES THE NEED FOR PAIN MEDICATION AT THIS TIME. CALL LIGHT ANDN BELINGINGS ARE WITHIN REACH.
--- NOTE | 2021-01-25 06:32 | NUR ---
PATIENT GIVEN PRN PAIN MEDICATION FOR 8/10 PAIN IN HIS LLL. PATIENT IS RESTING IN BED. NO FURTHER NEEDS NOTED. CALL LIGHT IN REACH.
--- NOTE | 2021-01-25 08:10 | NUR ---
PT SITTING AT BEDSIDE. PT STATES HE SLEPT THE MOST HE EVER HAS LAST NIGHT WHILE ADMITTED WITH MINIMAL DISCOMFORT. SCHEDULED MEDICATIONS GIVEN. PT EATING BREAKFAST, ENCOURAGING TO STICK TO HIS HOME REGIME WITH MONITORING FLUID INTAKE. DR. VELEZ IN TO SPEAK TO PT. PT LEFT FINISHING UP HIS BREAKFAST AT THE BEDSIDE.
[2021-01-25] MEDS ORDERED: TORSEMIDE20 MG PO (08:23)
--- NOTE | 2021-01-25 09:17 | NUR ---
IN TO GIVE SCHEDULED MEDS. PT RETURNED FROM A WALK. PT REPORTS FATIGUE BUT ABLE TO CONTROL HIS BREATHING AND IS TOLERATED BY PT. PHARMACY IN TO EXPLAIN NEW HOME MED REGIME. PT COOPERATIVE AND ASKING QUESTIONS.
--- NOTE | 2021-01-25 09:40 | NUR ---
LAST SET OF VITALS OBTAINED, PT GATHERED ALL OF HIS BELONGINGS. BELONGINGS AND WALKER WITH PT. PT LEFT DEPARTMENT VIA WC WITH STUDENT NURSE AND GLORIA RN. WAITED OUTSIDE WITH PT UNTIL HIS TRASNSPORTATION ARRIVED. PT ABLE TO AMBULATE AND TRANSFER TO CAR WITH NONE TO MINIMAL ASSIST.
== END 2021-01-25 09:40 | disposition home or self-care (01) ==
LOC: ED 02:57 → CCU 02:58
PROVIDERS: ADMIT Internal Medicine; ATTEND Internal Medicine
DX: I13.0 Hypertensive heart and chronic kidney disease with heart failure and stage 1 through stage 4 chronic kidney disease, or unspecified chronic kidney disease (principal); I50.23 Acute on chronic systolic (congestive) heart failure; N18.4 Chronic kidney disease, stage 4 (severe); J96.01 Acute respiratory failure with hypoxia; I25.10 Atherosclerotic heart disease of native coronary artery without angina pectoris; E03.9 Hypothyroidism, unspecified; I95.9 Hypotension, unspecified; Z20.822 Contact with and (suspected) exposure to COVID-19; J44.9 Chronic obstructive pulmonary disease, unspecified; I25.2 Old myocardial infarction; E78.00 Pure hypercholesterolemia, unspecified; E55.9 Vitamin D deficiency, unspecified; M47.812 Spondylosis without myelopathy or radiculopathy, cervical region; Z79.82 Long term (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; Z79.02 Long term (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 of antithrombotics/antiplatelets; Z95.5 Presence of coronary angioplasty implant and graft; Z95.810 Presence of automatic (implantable) cardiac defibrillator; Z87.891 Personal history of nicotine dependence
CPT/HCPCS: 36415; 36600; 71045; 80048; 80053; 82803; 83735; 83880; 84100; 84484; 85025; 93005; 93010; 94640; 94660; 96372; 96374; 99285-25; C9803; G0378; J1650; J1940; U0003

== ENCOUNTER 2021-01-31 07:59 | Emergency (ER) | payer MEDICARE ==
[~2021-01-31] VITALS: Ht 175.3 cm; Wt 92.8 kg
[~2021-01-31 07:59] MED LIST changes: +ALLERGY EYE DRO10 M1 OU; +CARBOXYMETHYLCE15 ML OU; +NARCAN4 MG NAS
--- OUTSIDE RECORDS SUMMARY | 2021-01-31 08:02 | XMS ---
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 Care History Medical/Surgical 06/11/2020 [facility] Patient has follow up with PCP Dr. Gonzalez on 06/12/2020. 03/13/2020 [facility] Request sent via [employer] to Dr. Gonzalez for albuterol nebulizor to help with any shortness of breath associated with this patient\T\#39;s COPD. 03/12/2020 [facility] Patient was just seen on 03/09/[address] Gonzalez.\T\nbsp; Patient was, again, admitted and observed. E.D. VISIT COUNT (12 MO.) 10 [facility] H. TOTAL 10 NOTE: Visits indicate total known visits. 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 - Pain in left leg - Chronic obstructive pulmonary disease, unspecified - FPC (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 - Heart failure, unspecified - Hypertensive heart disease with heart failure - Old myocardial infarction 11/16/2020 18:29 [facility] [place] TYPE: Emergency COMPLAINT: - LEG PN DIAGNOSES: - Old myocardial infarction - Other termite helper (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 - Myoclonus - Personal history of nicotine dependence - Hypertensive heart disease with heart failure - Heart failure, unspecified - Chronic obstructive pulmonary disease, unspecified - Pain in left leg - FPC (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 11/08/2020 09:54 [facility] TYPE: Emergency COMPLAINT: - SOB 10/22/2020 13:02 [facility] TYPE: Emergency COMPLAINT: - FLU SYMPTOMS DIAGNOSES: - Hypertensive heart disease with heart failure - Heart failure, unspecified - Old myocardial infarction - Chronic obstructive pulmonary disease, unspecified - Personal history of nicotine dependence - Other senior living (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 - Benign paroxysmal vertigo, left ear - termite helper (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 - Dizziness and giddiness 09/13/2020 01:34 [facility] TYPE: Emergency COMPLAINT: - CHEST PAIN 06/07/2020 16:03 [facility] TYPE: Emergency COMPLAINT: - L ARM PAIN DIAGNOSES: - Chronic obstructive pulmonary disease, unspecified - Other senior living (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 - Pain in left arm - Heart failure, unspecified - Hypertensive heart disease with heart failure - FPC (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 - Old myocardial infarction 03/10/2020 02:14 [facility] TYPE: Emergency COMPLAINT: - SHORTNESS OF BREATH 03/04/2020 23:02 [facility] TYPE: Emergency COMPLAINT: - DIFFICULTY BREATHING, HEADACHE INPATIENT VISIT TRACKING (12 MO.) 01/24/2021 02:58 [facility] TYPE: Observation COMPLAINT: - CHF/ACUTE RESP FAILURE DIAGNOSES: - Hypertensive heart and chronic kidney disease with heart failure and stage 1 through stage 4 chronic kidney disease, or unspecified chronic kidney disease - Hypothyroidism, unspecified - Chronic obstructive pulmonary disease, unspecified - Acute on chronic systolic (congestive) heart failure - Personal history of nicotine dependence - Spondylosis without myelopathy or radiculopathy, cervical region - Atherosclerotic heart disease of [place] coronary artery without angina pectoris - Acute respiratory failure with hypoxia - Old myocardial infarction - Hypotension, unspecified - Presence of automatic (implantable) cardiac defibrillator - termite helper (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 of antithrombotics/antiplatelets - Presence of coronary angioplasty implant and graft - termite helper (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 - Chronic kidney disease, stage 4 (severe) - Pure hypercholesterolemia, unspecified - Vitamin D deficiency, unspecified 11/08/2020 09:55 [facility] TYPE: Observation COMPLAINT: - CHF ACUTE/CHRONIC SYSTOLIC DIAGNOSES: - Presence of coronary angioplasty implant and graft - Acute on chronic systolic (congestive) heart failure - Vitamin D deficiency, unspecified - Hypertensive heart and chronic kidney disease with heart failure and stage 1 through stage 4 chronic kidney disease, or unspecified chronic kidney disease - FPC (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 - Hypothyroidism, unspecified - Other chronic pain - Hypo-osmolality and hyponatremia - Chronic obstructive pulmonary disease, unspecified - Presence of automatic (implantable) cardiac defibrillator - Atherosclerotic heart disease of [place] coronary artery without angina pectoris - termite helper (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 of antithrombotics/antiplatelets - Chronic kidney disease, stage 4 (severe) - Hyperlipidemia, unspecified - Anemia in chronic kidney disease - Pure hypercholesterolemia, unspecified 09/13/2020 01:35 [facility] TYPE: Observation COMPLAINT: - DECOMPENSATED CHF DIAGNOSES: - Anemia in chronic kidney disease - Presence of automatic (implantable) cardiac defibrillator - FPC (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 - Hyperlipidemia, unspecified - Chronic pain syndrome - Other senior living (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 - Presence of coronary [...] deficiency, unspecified - Atherosclerotic heart disease of [place] coronary artery without angina pectoris - FPC (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 of antithrombotics/antiplatelets 03/10/2020 02:15 [facility] TYPE: Observation COMPLAINT: - CHF EXACERBATION DIAGNOSES: - Personal history of nicotine dependence - Acute on chronic systolic (congestive) heart failure - Chronic obstructive pulmonary disease, unspecified - Old myocardial infarction - Cervicalgia - Hypertensive heart disease with heart failure - Other termite helper (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 - Atherosclerotic heart disease of [place] coronary artery without angina pectoris - Hyperlipidemia, unspecified - Presence of coronary angioplasty implant and graft - Other chronic pain - Presence of cardiac pacemaker - FPC (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 - Contact with and (suspected) exposure to other viral communicable diseases 03/04/2020 23:03 [facility] TYPE: Observation COMPLAINT: - CHF DIAGNOSES: - Hyperlipidemia, unspecified - Chronic kidney disease, stage 4 (severe) - termite helper (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 - Anemia in chronic kidney disease - Atherosclerotic heart disease of [place] coronary artery without angina pectoris - Acute [...] history of nicotine dependence - Other senior living (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 [email or web address]
[2021-01-31] MEDS ORDERED: VENTOLIN HFA18 GM INH (09:54)
== END 2021-01-31 10:04 | disposition home or self-care (01) ==
LOC: ED 07:59
DX: I11.0 Hypertensive heart disease with heart failure (principal); I50.9 Heart failure, unspecified; I25.2 Old myocardial infarction; J44.9 Chronic obstructive pulmonary disease, unspecified; Z79.899 Other long term (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; Z79.82 Long term (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
CPT/HCPCS: 71045; 80053; 83880; 84484; 85025; 94640; 94664; 99285-25

== ENCOUNTER 2021-02-18 15:10 | Emergency (ER) | payer MEDICARE ==
[~2021-02-18] VITALS: Ht 175.3 cm; Wt 92.8 kg
--- OUTSIDE RECORDS SUMMARY | 2021-02-18 15:12 | XMS ---
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 - Has Care Guidelines - [facility] - 2 Visits in 30 Days CARE PROVIDERS EDWARD FELICIANO Family Medicine 04/04/2019-Current PHONE: Unknown KIMMIE GONZALEZ Internal Medicine 01/24/2021-Current PHONE: [phone] JEROMY HERNANDES Internal Medicine: Pulmonary Disease 10/18/2018-Current PHONE: Unknown KAREN AYALA Family Medicine: Sports Medicine 06/22/2018-Current PHONE: Unknown Ananda has no Care Guidelines for this patient. Care History Medical/Surgical 06/11/2020 [facility] Patient has follow up with PCP Dr. Gonzalez on 06/12/2020. 03/13/2020 [facility] Request sent via [employer] to Dr. Gonzalez for albuterol nebulizor to help with any shortness of breath associated with this patient\T\#39;s COPD. 03/12/2020 [facility] Patient was just seen on 03/09/[address] Gonzalez.\T\nbsp; Patient was, again, admitted and observed. E.D. VISIT COUNT (12 MO.) 11 [facility] H. TOTAL 11 NOTE: Visits indicate total known visits. 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 - Other terminal system operator (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 - Chronic obstructive pulmonary disease, unspecified - Shortness of breath - Old myocardial infarction - Hypertensive heart disease with heart failure 01/24/2021 02:57 [facility] TYPE: Emergency COMPLAINT: - DIFFICULTY BREATHING 12/15/2020 17:34 [facility] TYPE: Emergency COMPLAINT: - LT LEG PAIN DIAGNOSES: - Other chronic pain - Other terminal system operator (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 - Pain in left leg - Chronic obstructive pulmonary disease, unspecified - prison (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 - Heart failure, unspecified - Hypertensive heart disease with heart failure - Old myocardial infarction 11/16/2020 18:29 [facility] TYPE: Emergency COMPLAINT: - LEG PN DIAGNOSES: - Old myocardial infarction - Other terminal system operator (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 - Myoclonus - Personal history of nicotine dependence - Hypertensive heart disease with heart failure - Heart failure, unspecified - Chronic obstructive pulmonary disease, unspecified - Pain in left leg - prison (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 11/08/2020 09:54 [facility] TYPE: Emergency COMPLAINT: - SOB 10/22/2020 13:02 [facility] TYPE: Emergency COMPLAINT: - FLU SYMPTOMS DIAGNOSES: - Hypertensive heart disease with heart failure - Heart failure, unspecified - Old myocardial infarction - Chronic obstructive pulmonary disease, unspecified - Personal history of nicotine dependence - Other terminal system operator (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 - Benign paroxysmal vertigo, left ear - prison (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 - Dizziness and giddiness 09/13/2020 01:34 [facility] TYPE: Emergency COMPLAINT: - CHEST PAIN 06/07/2020 16:03 [facility] TYPE: Emergency COMPLAINT: - L ARM PAIN DIAGNOSES: - Chronic obstructive pulmonary disease, unspecified - Other terminal system operator (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 - Pain in left arm - Heart failure, unspecified - Hypertensive heart disease with heart failure - equipment operator intermodal yard (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 - Old myocardial [...] cervical region - Atherosclerotic heart disease of [place] coronary artery without angina pectoris - Acute respiratory failure with hypoxia - Old myocardial infarction - Hypotension, unspecified - Presence of automatic (implantable) cardiac defibrillator - prison (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 of antithrombotics/antiplatelets - Presence of coronary angioplasty implant and graft - equipment operator intermodal yard (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 - Chronic kidney [...] disease, or unspecified chronic kidney disease - equipment operator intermodal yard (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 - Hypothyroidism, unspecified - Other chronic pain - Hypo-osmolality and hyponatremia - Chronic obstructive pulmonary disease, unspecified - Presence of automatic (implantable) cardiac defibrillator - Atherosclerotic heart disease of [place] coronary artery without angina pectoris - equipment operator intermodal yard (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 of antithrombotics/antiplatelets - Chronic kidney disease, stage 4 (severe) - Hyperlipidemia, unspecified - Anemia in chronic kidney disease - Pure hypercholesterolemia, unspecified 09/13/2020 01:35 [facility] TYPE: Observation COMPLAINT: - DECOMPENSATED CHF DIAGNOSES: - Anemia in chronic kidney disease - Presence of automatic (implantable) cardiac defibrillator - prison (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 - Hyperlipidemia, unspecified - Chronic pain syndrome - Other custodial (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 - Presence of coronary [...] deficiency, unspecified - Atherosclerotic heart disease of [place] coronary artery without angina pectoris - equipment operator intermodal yard (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 of antithrombotics/antiplatelets 03/10/2020 02:15 [facility] TYPE: Observation COMPLAINT: - CHF EXACERBATION DIAGNOSES: - Personal history of nicotine dependence - Acute on chronic systolic (congestive) heart failure - Chronic obstructive pulmonary disease, unspecified - Old myocardial infarction - Cervicalgia - Hypertensive heart disease with heart failure - Other terminal system operator (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 - Atherosclerotic heart disease of [place] coronary artery without angina pectoris - Hyperlipidemia, unspecified - Presence of coronary angioplasty implant and graft - Other chronic pain - Presence of cardiac pacemaker - equipment operator intermodal yard (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
[2021-02-18] MEDS ORDERED: HYDROCODON-ACE1 EA10 PO (15:42)
== END 2021-02-18 15:52 | disposition home or self-care (01) ==
LOC: ED 15:10
DX: M70.21 Olecranon bursitis, right elbow (principal); I25.2 Old myocardial infarction; I11.0 Hypertensive heart disease with heart failure; I50.9 Heart failure, unspecified; J44.9 Chronic obstructive pulmonary disease, unspecified; Z87.891 Personal history of nicotine dependence; Z79.899 Other long term (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; Z79.82 Long term (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
CPT/HCPCS: 99283

== ENCOUNTER 2021-02-25 08:47 | Emergency (ER) | payer MEDICARE ==
[~2021-02-25] VITALS: Ht 175.3 cm; Wt 92.8 kg
--- OUTSIDE RECORDS SUMMARY | 2021-02-25 08:58 | XMS ---
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 Care History Medical/Surgical 06/11/[address] [facility] Patient has follow up with PCP Dr. Gonzalez on 06/12/2020. 03/13/[address] [facility] Request sent via [employer] to Dr. Gonzalez for albuterol nebulizor to help with any shortness of breath associated with this patient\T\#39;s COPD. 03/12/[address] [facility] Patient was just seen on 03/09/[address] Gonzalez.\T\nbsp; Patient was, again, admitted and observed. E.D. VISIT COUNT (12 MO.) 12 [facility] H. TOTAL 12 NOTE: Visits indicate total known visits. ED/UCC VISIT TRACKING (12 MO.) 02/25/2021 08:48 [facility] TYPE: Emergency COMPLAINT: - R ELBOW PAIN 02/18/2021 15:11 [facility] TYPE: Emergency COMPLAINT: - R ELBOW PAIN/SWELLING/ NON INJURY DIAGNOSES: - Other correction (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 - Hypertensive heart disease with heart failure - Personal history of nicotine dependence - Pain in right elbow - Olecranon bursitis, right elbow - Heart failure, unspecified - Chronic obstructive pulmonary disease, unspecified - long-term (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 - Old myocardial infarction 01/31/2021 07:59 [facility] TYPE: Emergency COMPLAINT: - SOB DIAGNOSES: - Heart failure, unspecified - termite technician (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 - Other terminal operations manager (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 - Chronic obstructive pulmonary disease, unspecified - Shortness of breath - Old myocardial infarction - Hypertensive heart disease with heart failure 01/24/2021 02:57 [facility] TYPE: Emergency COMPLAINT: - DIFFICULTY BREATHING 12/15/2020 17:34 [facility] TYPE: Emergency COMPLAINT: - LT LEG PAIN DIAGNOSES: - Other chronic pain - Other correction (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 - Pain in left leg - Chronic obstructive pulmonary disease, unspecified - termite technician (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 - Heart failure, unspecified - Hypertensive heart disease with heart failure - Old myocardial infarction 11/16/2020 18:29 [facility] TYPE: Emergency COMPLAINT: - LEG PN DIAGNOSES: - Old myocardial infarction - Other terminal operations manager (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 - Myoclonus - Personal history of nicotine dependence - Hypertensive heart disease with heart failure - Heart failure, unspecified - Chronic obstructive pulmonary disease, unspecified - Pain in left leg - long-term (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 11/08/2020 09:54 [facility] [place] [facility] COMPLAINT: - SOB 10/22/2020 13:02 [facility] TYPE: Emergency COMPLAINT: - FLU SYMPTOMS DIAGNOSES: - Hypertensive heart disease with heart failure - Heart failure, unspecified - Old myocardial infarction - Chronic obstructive pulmonary disease, unspecified - Personal history of nicotine dependence - Other terminal operations manager (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 - Benign paroxysmal vertigo, left ear - termite technician (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 - Dizziness and giddiness 09/13/2020 01:34 [facility] TYPE: Emergency COMPLAINT: - CHEST PAIN 06/07/2020 16:03 [facility] TYPE: Emergency COMPLAINT: - L ARM PAIN DIAGNOSES: - Chronic obstructive pulmonary disease, unspecified - Other terminal operations manager (current) drug therapy - Pain in left arm - Heart failure, unspecified - Hypertensive heart disease with heart failure - long-term (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 - Old myocardial [...] cervical region - Atherosclerotic heart disease of [place] coronary artery without angina pectoris - Acute respiratory failure with hypoxia - Old myocardial infarction - Hypotension, unspecified - Presence of automatic (implantable) cardiac defibrillator - long-term (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 of antithrombotics/antiplatelets - Presence of coronary angioplasty implant and graft - termite technician (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 - Chronic kidney [...] or unspecified chronic kidney disease - termite technician (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 - Hypothyroidism, unspecified - Other chronic pain - Hypo-osmolality and hyponatremia - Chronic obstructive pulmonary disease, unspecified - Presence of automatic (implantable) cardiac defibrillator - Atherosclerotic heart disease of [place] coronary artery without angina pectoris - termite technician (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 of antithrombotics/antiplatelets - Chronic kidney disease, stage 4 (severe) - Hyperlipidemia, unspecified - Anemia in chronic kidney disease - Pure hypercholesterolemia, unspecified 09/13/2020 01:35 [facility] TYPE: Observation COMPLAINT: - DECOMPENSATED CHF DIAGNOSES: - Anemia in chronic kidney disease - Presence of automatic (implantable) cardiac defibrillator - termite technician (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 - Hyperlipidemia, unspecified - Chronic pain syndrome - Other correction (current) drug therapy - Presence of coronary [...] deficiency, unspecified - Atherosclerotic heart disease of [place] coronary artery without angina pectoris - long-term (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 of antithrombotics/antiplatelets 03/10/2020 02:15 [facility] TYPE: Observation COMPLAINT: - CHF EXACERBATION DIAGNOSES: - Personal history of nicotine dependence - Acute on chronic systolic (congestive) heart failure - Chronic obstructive pulmonary disease, unspecified - Old myocardial infarction - Cervicalgia - Hypertensive heart disease with heart failure - Other terminal operations manager (current) drug therapy - Atherosclerotic heart disease of [place] coronary artery without angina pectoris - Hyperlipidemia, unspecified - Presence of coronary angioplasty implant and graft - Other chronic pain - Presence of cardiac pacemaker - termite technician (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 - Contact with and (suspected) exposure to other viral communicable diseases 03/04/2020 23:03 [facility] TYPE: Observation COMPLAINT: - CHF DIAGNOSES: - Hyperlipidemia, unspecified - Chronic kidney disease, stage 4 (severe) - long-term (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 - Anemia in chronic kidney disease - Atherosclerotic heart disease of [place] coronary artery without angina pectoris - Acute [...] dependence - Other correction (current) drug therapy [email or web address]
[2021-02-25] MEDS ORDERED: HYDROCODON-ACE1 EA10 PO (09:49)
== END 2021-02-25 10:00 | disposition home or self-care (01) ==
LOC: ED 08:47
DX: M70.21 Olecranon bursitis, right elbow (principal); I25.2 Old myocardial infarction; I11.0 Hypertensive heart disease with heart failure; I50.9 Heart failure, unspecified; J44.9 Chronic obstructive pulmonary disease, unspecified; Z87.891 Personal history of nicotine dependence; Z79.899 Other long term (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; Z79.82 Long term (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
CPT/HCPCS: 20605; 99283-25

== ENCOUNTER 2021-04-13 10:12 | Emergency (ER) | payer MEDICARE ==
[~2021-04-13] VITALS: Ht 175.3 cm; Wt 92.3 kg
--- OUTSIDE RECORDS SUMMARY | 2021-04-13 10:14 | XMS ---
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 Events No recent Security Events currently on file CRITERIA MET - [facility] - 2 Visits in 30 Days - [facility] - Has Care Guidelines - 6 ED Visits in 6 Months - Group Notification - PDMP CARE PROVIDERS EDWARD FELICIANO [facility] Medicine 04/04/2019-Current PHONE: Unknown KIMMIE GONZALEZ Internal Medicine 01/24/2021-Current PHONE: [phone] JEROMY HERNANDES Internal Medicine: Pulmonary Disease 10/18/2018-Current PHONE: Unknown KAREN AYALA Family Medicine: Sports Medicine 06/22/2018-Current PHONE: Unknown Ananda has no Care Guidelines for this patient. Care History Medical/Surgical 02/25/2021 [facility] - PATIENT WAS REFERRED TO [facility] 12/21/20.NEXT APT WITH THE PAIN CLINIC WILL BE ON 03/06/21 AND THEN THE PAIN CONTRACT WILL BE ESTABLISHED. 06/11/2020 [facility] Patient has follow up with PCP Dr. Gonzalez on 06/12/2020. 03/13/2020 [facility] Request sent via [employer] to Dr. Gonzalez for albuterol nebulizor to help with any shortness of breath associated with this patient\T\#39;s COPD. E.D. VISIT COUNT (12 MO.) [address] [facility] H. TOTAL 12 NOTE: Visits indicate total known visits. ED/C VISIT TRACKING (12 MO.) 04/13/2021 10:12 [facility] TYPE: Emergency COMPLAINT: - LEFT ARM PAIN 04/10/2021 11:03 [facility] TYPE: Emergency COMPLAINT: - L HAND SWELLING/PAIN 02/25/2021 08:48 [facility] TYPE: Emergency COMPLAINT: - R ELBOW PAIN DIAGNOSES: - Personal history of nicotine dependence - Old myocardial infarction - group home (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 - Olecranon bursitis, right elbow - Hypertensive heart disease with heart failure - Other termite control service representative (current) drug therapy - Heart failure, unspecified - Chronic obstructive pulmonary disease, unspecified 02/18/2021 15:11 [facility] [place] TYPE: Emergency COMPLAINT: - R ELBOW PAIN/SWELLING/ NON INJURY DIAGNOSES: - Other termite control service representative (current) drug therapy - Hypertensive heart disease with heart failure - Personal history of nicotine dependence - Pain in right elbow - Olecranon bursitis, right elbow - Heart failure, unspecified - Chronic obstructive pulmonary disease, unspecified - group home (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 - Old myocardial infarction 01/31/2021 07:59 [facility] [place] TYPE: Emergency COMPLAINT: - SOB DIAGNOSES: - Heart failure, unspecified - salvage determiner (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 - Other snf (current) drug therapy - Chronic obstructive pulmonary disease, unspecified - Shortness of breath - Old myocardial infarction - Hypertensive heart disease with heart failure 01/24/2021 02:57 [facility] TYPE: Emergency COMPLAINT: - DIFFICULTY BREATHING 12/15/2020 17:34 [facility] TYPE: Emergency COMPLAINT: - LT LEG PAIN DIAGNOSES: - Other chronic pain - Other termite control service representative (current) drug therapy - Pain in left leg - Chronic obstructive pulmonary disease, unspecified - salvage determiner (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 - Heart failure, unspecified - Hypertensive heart disease with heart failure - Old myocardial infarction 11/16/2020 18:29 [facility] TYPE: Emergency COMPLAINT: - LEG PN DIAGNOSES: - Old myocardial infarction - Other snf (current) drug therapy - Myoclonus - Personal history of nicotine dependence - Hypertensive heart disease with heart failure - Heart failure, unspecified - Chronic obstructive pulmonary disease, unspecified - Pain in left leg - salvage determiner (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 11/08/2020 09:54 [facility] TYPE: Emergency COMPLAINT: - SOB 10/22/2020 13:02 [facility] TYPE: Emergency COMPLAINT: - FLU SYMPTOMS DIAGNOSES: - Hypertensive heart disease with heart failure - Heart failure, unspecified - Old myocardial infarction - Chronic obstructive pulmonary disease, unspecified - Personal history of nicotine dependence - Other snf (current) drug therapy - Benign paroxysmal vertigo, left ear - group home (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 - Dizziness and giddiness 09/13/2020 01:34 [facility] TYPE: Emergency COMPLAINT: - CHEST PAIN 06/07/2020 16:03 [facility] TYPE: Emergency COMPLAINT: - L ARM PAIN DIAGNOSES: - Chronic obstructive pulmonary disease, unspecified - Other termite control service representative (current) drug therapy - Pain in left arm - Heart failure, unspecified - Hypertensive heart disease with heart failure - group home (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 - Old myocardial infarction INPATIENT VISIT TRACKING (12 MO.) 01/24/2021 02:58 [...] cervical region - Atherosclerotic heart disease of tribe coronary artery without angina pectoris - Acute respiratory failure with hypoxia - Old myocardial infarction - Hypotension, unspecified - Presence of automatic (implantable) cardiac defibrillator - group home (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 of antithrombotics/antiplatelets - Presence of coronary angioplasty implant and graft - group home (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 - Chronic kidney disease, stage 4 (severe) - Pure hypercholesterolemia, unspecified - Vitamin D deficiency, unspecified 11/08/2020 09:[address] [facility] [place] TYPE: Observation COMPLAINT: - CHF ACUTE/CHRONIC SYSTOLIC DIAGNOSES: - Presence of coronary angioplasty implant and graft - Acute on chronic systolic (congestive) heart failure - Vitamin D deficiency, unspecified - Hypertensive heart and chronic kidney disease with heart failure and stage 1 through stage 4 chronic kidney disease, or unspecified chronic kidney disease - salvage determiner (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 - Hypothyroidism, unspecified - Other chronic pain - Hypo-osmolality and hyponatremia - Chronic obstructive pulmonary disease, unspecified - Presence of automatic (implantable) cardiac defibrillator - Atherosclerotic heart disease of tribe coronary artery without angina pectoris - salvage determiner (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 of antithrombotics/antiplatelets - Chronic kidney disease, stage 4 (severe) - Hyperlipidemia, unspecified - Anemia in chronic kidney disease - Pure hypercholesterolemia, unspecified 09/13/2020 01:35 [facility] TYPE: Observation COMPLAINT: - DECOMPENSATED CHF DIAGNOSES: - Anemia in chronic kidney disease - Presence of automatic (implantable) cardiac defibrillator - salvage determiner (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 - Hyperlipidemia, unspecified - Chronic pain syndrome - Other snf (current) drug therapy - Presence of coronary [...] deficiency, unspecified - Atherosclerotic heart disease of tribe coronary artery without angina pectoris - salvage determiner (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 of antithrombotics/antiplatelets [email or web address]
[2021-04-13] MEDS ORDERED: CLEOCIN HCL300 MG PO ×2 (10:28→12:43)
[2021-04-13] MEDS ORDERED: HYDROCODON-ACE1 EA11 PO (12:43)
== END 2021-04-13 13:05 | disposition home or self-care (01) ==
LOC: ED 10:12
DX: L03.114 Cellulitis of left upper limb (principal); I11.0 Hypertensive heart disease with heart failure; I25.2 Old myocardial infarction; I50.9 Heart failure, unspecified; J44.9 Chronic obstructive pulmonary disease, unspecified; Z87.891 Personal history of nicotine dependence; Z79.899 Other long term (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; Z79.82 Long term (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
CPT/HCPCS: 10160; 76881; 85025; 85651; 99284-25; J1170

== ENCOUNTER 2021-05-19 14:54 | Emergency (ER) | payer MEDICARE ==
[~2021-05-19] VITALS: Ht 175.3 cm; Wt 92.3 kg
[~2021-05-19 14:54] MED LIST changes: +CLEOCIN HCL300 MG PO; +HYDROCODON-ACE1 EA11 PO
--- OUTSIDE RECORDS SUMMARY | 2021-05-19 14:58 | XMS ---
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 Security Assistant Analyst Events 1 event(s) in the past 18 months Most recent security events: Elopement at [facility] 04/10/2021 11:03 - Other Details: PATIENT LWBS CRITERIA MET - PDMP - [facility] - Has Care Guidelines - Group Notification - 6 ED Visits in 6 Months CARE PROVIDERS EDWARD FELICIANO [facility] 04/04/2019-Current PHONE: Unknown KIMMIE GONZALEZ Internal Medicine 01/24/2021-Current PHONE: [phone] JEROMY HERNANDES Internal Medicine: Pulmonary Disease 10/18/2018-Current PHONE: Unknown KAREN AYALA Family Medicine: Sports Medicine 06/22/2018-Current PHONE: [phone] Ananda has no Care Guidelines for this patient. Care History Medical/Surgical 02/25/2021 [facility] - PATIENT WAS REFERRED TO [facility] 12/21/20.NEXT APT WITH THE PAIN CLINIC WILL BE ON 03/06/21 AND THEN THE PAIN CONTRACT WILL BE ESTABLISHED. 06/11/2020 [facility] Patient has follow up with PCP Dr. Gonzalez on 06/12/2020. 03/13/2020 [facility] Request sent via [employer] to Dr. Gonzalez for albuterol nebulizor to help with any shortness of breath associated with this patient\T\#39;s COPD. E.D. VISIT COUNT (12 MO.) 13 [facility] H. TOTAL 13 NOTE: Visits indicate total known visits. ED/C VISIT TRACKING (12 MO.) 05/19/2021 14:56 [facility] TYPE: Emergency COMPLAINT: - RIGHT ELBOW PAIN 04/13/2021 10:12 [facility] TYPE: Emergency COMPLAINT: - LEFT ARM PAIN DIAGNOSES: - Personal history of nicotine dependence - Cellulitis of left upper limb - Heart failure, unspecified - Chronic obstructive pulmonary disease, unspecified - MCC (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 - Other specified soft tissue disorders - Hypertensive heart disease with heart failure - Old myocardial infarction - Other terminal block assembler (current) drug therapy 04/10/2021 11:03 [facility] TYPE: Emergency COMPLAINT: - L HAND SWELLING/PAIN 02/25/2021 08:48 [facility] TYPE: Emergency COMPLAINT: - R ELBOW PAIN DIAGNOSES: - Personal history of nicotine dependence - Old myocardial infarction - intermission coordinator (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 - Olecranon bursitis, right elbow - Hypertensive heart disease with heart failure - Other fdc (current) drug therapy - Heart failure, unspecified - Chronic obstructive pulmonary disease, unspecified 02/18/2021 15:11 [facility] TYPE: Emergency COMPLAINT: - R ELBOW PAIN/SWELLING/ NON INJURY DIAGNOSES: - Other fdc (current) drug therapy - Hypertensive heart disease with heart failure - Personal history of nicotine dependence - Pain in right elbow - Olecranon bursitis, right elbow - Heart failure, unspecified - Chronic obstructive pulmonary disease, unspecified - intermission coordinator (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 - Old myocardial infarction 01/31/2021 07:59 [facility] TYPE: Emergency COMPLAINT: - SOB DIAGNOSES: - Heart failure, unspecified - intermission coordinator (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 - Other fdc (current) drug therapy - Chronic obstructive pulmonary disease, unspecified - Shortness of breath - Old myocardial infarction - Hypertensive heart disease with heart failure 01/24/2021 02:57 [facility] TYPE: Emergency COMPLAINT: - DIFFICULTY BREATHING 12/15/2020 17:34 [facility] TYPE: Emergency COMPLAINT: - LT LEG PAIN DIAGNOSES: - Other chronic pain - Other terminal block assembler (current) drug therapy - Pain in left leg - Chronic obstructive pulmonary disease, unspecified - intermission coordinator (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 - Heart failure, unspecified - Hypertensive heart disease with heart failure - Old myocardial infarction 11/16/2020 18:29 [facility] TYPE: Emergency COMPLAINT: - LEG PN DIAGNOSES: - Old myocardial infarction - Other terminal block assembler (current) drug therapy - Myoclonus - Personal history of nicotine dependence - Hypertensive heart disease with heart failure - Heart failure, unspecified - Chronic obstructive pulmonary disease, unspecified - Pain in left leg - MCC (current) use of aspirin 11/08/2020 09:54 [facility] TYPE: Emergency COMPLAINT: - SOB 10/22/2020 13:02 [facility] TYPE: Emergency COMPLAINT: - FLU SYMPTOMS DIAGNOSES: - Hypertensive heart disease with heart failure - Heart failure, unspecified - Old myocardial infarction - Chronic obstructive pulmonary disease, unspecified - Personal history of nicotine dependence - Other terminal block assembler (current) drug therapy - Benign paroxysmal vertigo, left ear - MCC (current) use of aspirin - Dizziness and giddiness 09/13/2020 01:34 [facility] [place] TYPE: Emergency COMPLAINT: - CHEST PAIN 06/07/2020 16:03 [facility] TYPE: Emergency COMPLAINT: - L ARM PAIN DIAGNOSES: - Chronic obstructive pulmonary disease, unspecified - Other terminal block assembler (current) drug therapy - Pain in left arm - Heart failure, unspecified - Hypertensive heart disease with heart failure - intermission coordinator (current) use of aspirin - Old myocardial [...] cervical region - Atherosclerotic heart disease of [place] coronary artery without angina pectoris - Acute respiratory failure with hypoxia - Old myocardial infarction - Hypotension, unspecified - Presence of automatic (implantable) cardiac defibrillator - MCC (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 of antithrombotics/antiplatelets - Presence of coronary angioplasty implant and graft - intermission coordinator (current) use of aspirin - Chronic kidney [...] disease, or unspecified chronic kidney disease - MCC (current) use of aspirin - Hypothyroidism, unspecified - Other chronic pain - Hypo-osmolality and hyponatremia - Chronic obstructive pulmonary disease, unspecified - Presence of automatic (implantable) cardiac defibrillator - Atherosclerotic heart disease of [place] coronary artery without angina pectoris - MCC (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 of antithrombotics/antiplatelets - Chronic kidney disease, stage 4 (severe) - Hyperlipidemia, unspecified - Anemia in chronic kidney disease - Pure hypercholesterolemia, unspecified 09/13/2020 01:35 [facility] TYPE: Observation COMPLAINT: - DECOMPENSATED CHF DIAGNOSES: - Anemia in chronic kidney disease - Presence of automatic (implantable) cardiac defibrillator - MCC (current) use of aspirin - Hyperlipidemia, unspecified - Chronic pain syndrome - Other terminal block assembler (current) drug therapy - Presence of coronary [...] deficiency, unspecified - Atherosclerotic heart disease of [place] coronary artery without angina pectoris - intermission coordinator (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 of antithrombotics/antiplatelets [email or web address]
[2021-05-19] MEDS ORDERED: ZYLOPRIM100 MG PO (15:11)
[2021-05-19] MEDS ORDERED: HYDROCODON-ACE1 EA11 PO (16:13)
== END 2021-05-19 16:35 | disposition home or self-care (01) ==
LOC: ED 14:54
DX: M70.21 Olecranon bursitis, right elbow (principal); I25.2 Old myocardial infarction; I11.0 Hypertensive heart disease with heart failure; I50.9 Heart failure, unspecified; M10.9 Gout, unspecified; J44.9 Chronic obstructive pulmonary disease, unspecified; Z87.891 Personal history of nicotine dependence; Z79.899 Other long term (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; Z79.82 Long term (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
CPT/HCPCS: 20605; 99283-25; A9270

== ENCOUNTER 2021-06-20 08:16 | Observation (INO) | payer MEDICARE ==
[~2021-06-20] VITALS: Ht 175.3 cm; Wt 93.9 kg
[~2021-06-20 08:16] MED LIST changes: +METAMUCIL FIBE3.4 GM PO; -METAMUCIL0.4 GM PO; +VITAMIN D21250 MCG PO; -VITAMIN D31250 MC1 PO; +ZYLOPRIM100 MG PO
--- OUTSIDE RECORDS SUMMARY | 2021-06-20 08:20 | XMS ---
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 Events 1 event(s) in the past 18 months Most recent security events: Elopement at [facility] 04/10/2021 11:03 - Other Details: PATIENT LWBS CRITERIA MET - [facility] - Has Care Guidelines - Group Notification - PDMP - 6 ED Visits in 6 Months CARE PROVIDERS EDWARD FELICIANO Family Medicine 04/04/2019-Current PHONE: Unknown LUCY HERNANDEZ Family Medicine: Sports Medicine 06/22/2018-Current PHONE: Unknown KIMMIE GONZALEZ Internal Medicine 01/24/2021-Current PHONE: [phone] JEROMY HERNANDES Internal Medicine: Pulmonary Disease 10/18/2018-Current PHONE: Unknown Ananda has no Care Guidelines for this patient. Care History Medical/Surgical 02/25/2021 [facility] - PATIENT WAS REFERRED TO [facility] 12/21/20.NEXT APT WITH THE PAIN CLINIC WILL BE ON 03/06/21 AND THEN THE PAIN CONTRACT WILL BE ESTABLISHED. 06/11/2020 [facility] Patient has follow up with PCP Dr. Gonzalez on 06/12/2020. 03/13/2020 [facility] Request sent via [employer] to Dr. Gonzalez for albuterol nebulizor to help with any shortness of breath associated with this patient\T\#39;s COPD. E.D. VISIT COUNT (12 MO.) 13 [facility]. TOTAL 13 NOTE: Visits indicate total known visits. ED/UCC VISIT TRACKING (12 MO.) 06/20/2021 08:18 [facility] TYPE: Emergency COMPLAINT: - SOB 05/19/2021 14:56 [facility] TYPE: Emergency COMPLAINT: - RIGHT ELBOW PAIN DIAGNOSES: - Olecranon bursitis, right elbow - Chronic obstructive pulmonary disease, unspecified - Hypertensive heart disease with heart failure - Other long term care social worker (current) drug therapy - Heart failure, unspecified - [facility] (current) use of aspirin - Gout, unspecified - Personal history of nicotine dependence - Old myocardial infarction 04/13/2021 10:12 [facility] TYPE: Emergency COMPLAINT: - LEFT ARM PAIN DIAGNOSES: - Personal history of nicotine dependence - Cellulitis of left upper limb - Heart failure, unspecified - Chronic obstructive pulmonary disease, unspecified - FPC (current) use of aspirin - Other specified soft tissue disorders - Hypertensive heart disease with heart failure - Old myocardial infarction - Other long term care social worker (current) drug therapy 04/10/2021 11:03 [facility] TYPE: Emergency COMPLAINT: - L HAND SWELLING/PAIN 02/25/2021 08:48 [facility] TYPE: Emergency COMPLAINT: - R ELBOW PAIN DIAGNOSES: - Personal history of nicotine dependence - Old myocardial infarction - 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 - Olecranon bursitis, right elbow - Hypertensive heart disease with heart failure - Other alf (current) drug therapy - Heart failure, unspecified - Chronic obstructive pulmonary disease, unspecified 02/18/2021 15:11 [facility] TYPE: Emergency COMPLAINT: - R ELBOW PAIN/SWELLING/ NON INJURY DIAGNOSES: - Other long term care social worker (current) drug therapy - Hypertensive heart disease with heart failure - Personal history of nicotine dependence - Pain in right elbow - Olecranon bursitis, right elbow - Heart failure, unspecified - Chronic obstructive pulmonary disease, unspecified - 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 - Old myocardial infarction 01/31/2021 07:59 [facility] TYPE: Emergency COMPLAINT: - SOB DIAGNOSES: - Heart failure, unspecified - FPC (current) use of aspirin - Other long term care social worker (current) drug therapy - Chronic obstructive pulmonary disease, unspecified - Shortness of breath - Old myocardial infarction - Hypertensive heart disease with heart failure 01/24/2021 02:57 [facility] TYPE: Emergency COMPLAINT: - DIFFICULTY BREATHING 12/15/2020 17:34 [facility] TYPE: Emergency COMPLAINT: - LT LEG PAIN DIAGNOSES: - Other chronic pain - Other long term care social worker (current) drug therapy - Pain in left leg - Chronic obstructive pulmonary disease, unspecified - FPC (current) use of aspirin - Heart failure, unspecified - Hypertensive heart disease with heart failure - Old myocardial infarction 11/16/2020 18:29 [facility] TYPE: Emergency COMPLAINT: - LEG PN DIAGNOSES: - Old myocardial infarction - Other alf (current) drug therapy - Myoclonus - Personal history of nicotine dependence - Hypertensive heart disease with heart failure - Heart failure, unspecified - Chronic obstructive pulmonary disease, unspecified - Pain in left leg - 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 11/08/2020 09:54 [facility] TYPE: Emergency COMPLAINT: - SOB 10/22/2020 13:02 [facility] TYPE: Emergency COMPLAINT: - FLU SYMPTOMS DIAGNOSES: - Hypertensive heart disease with heart failure - Heart failure, unspecified - Old myocardial infarction - Chronic obstructive pulmonary disease, unspecified - Personal history of nicotine dependence - Other long term care social worker (current) drug therapy - Benign paroxysmal vertigo, left ear - FPC (current) use of aspirin - Dizziness and giddiness 09/13/2020 01:34 [facility] TYPE: Emergency COMPLAINT: - CHEST PAIN INPATIENT VISIT TRACKING (12 MO.) 01/24/2021 02:58 [...] cervical region - Atherosclerotic heart disease of [place] coronary artery without angina pectoris - Acute respiratory failure with hypoxia - Old myocardial infarction - Hypotension, unspecified - Presence of automatic (implantable) cardiac defibrillator - 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 driver (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 of antithrombotics/antiplatelets - Presence of coronary angioplasty implant and graft - 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 - Chronic kidney [...] disease, or unspecified chronic kidney disease - 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 - Hypothyroidism, unspecified - Other chronic pain - Hypo-osmolality and hyponatremia - Chronic obstructive pulmonary disease, unspecified - Presence of automatic (implantable) cardiac defibrillator - Atherosclerotic heart disease of [place] coronary artery without angina pectoris - 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 driver (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 of antithrombotics/antiplatelets - Chronic kidney disease, stage 4 (severe) - Hyperlipidemia, unspecified - Anemia in chronic kidney disease - Pure hypercholesterolemia, unspecified 09/13/2020 01:[address] [facility] [place] TYPE: Observation COMPLAINT: - DECOMPENSATED CHF DIAGNOSES: - Anemia in chronic kidney disease - Presence of automatic (implantable) cardiac defibrillator - FPC (current) use of aspirin - Hyperlipidemia, unspecified - Chronic pain syndrome - Other alf (current) drug therapy - Presence of coronary [...] deficiency, unspecified - Atherosclerotic heart disease of [place] coronary artery without angina pectoris - 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 driver (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 of antithrombotics/antiplatelets [email or web address]
--- NOTE | 2021-06-20 12:27 | NUR ---
Report received from Luke HAMILTON in ED, patient to come to room 126.
--- NOTE | 2021-06-20 13:48 | NUR ---
PT IN ROOM STANDING ON THE OTHER SIDE OF THE BED WITH HARP REGULATOR PULLED OUT FROM THE MONITOR. WHEN ASKED WHAT HE NEEDED, PT STATES "I JUST NEEDED TO GET MY STUFF". REQUESTED THAT PT CALL FOR ASSISTANCE PRIOR TO GETTING OUT OF BED DUE TO FALL RISK, PT STATES UNDERSTANDING. PT ALSO VOIDED INTO BEDSIDE URINAL.
--- NOTE | 2021-06-20 14:49 | NUR ---
DR Aguilar notified of lower BP, 92/73 and HR 76. Order to hold the metalazone. Also, patient states takes this med only 2 times per week, thursday and and already had it for today. Patient continues on 4L via NC and saturation is 92% has been tripoding on side of bed.
--- NOTE | 2021-06-20 16:31 | NUR ---
Spoke with pt and he cont. to live in [place] with his Debbie. [facility] He uses a walker and a cane. Has wc if needed, but usually does not use. States he is already beginni ng to feel better with start of Lasix. Has 02 4L at home. Plans on dc to home with his, Debbie. Phone number [phone].
[2021-06-20] MEDS ORDERED: AMITRIPTYLINE H10 MG PO (17:28)
[2021-06-20] MEDS ORDERED: LACTULOSE10 GM/15 M PO (17:28)
[2021-06-20] MEDS ORDERED: TORSEMIDE20 MG PO (17:33)
[2021-06-20] MEDS ORDERED: POTASSIUM CHLO10 ME1 PO (17:36)
[2021-06-20] MEDS ORDERED: HYDROCODON-ACE1 EAC8 PO (17:37)
--- NOTE | 2021-06-20 17:41 | NUR ---
MED REC COMPLETE
--- NOTE | 2021-06-20 19:35 | NUR ---
REPORT RECEIVED FROM RAMO HAMILTON. PT ASKING FOR GABAPENTIN AND TRAMADOL, MEDS GIVEN. PT DENIES FURTHER NEEDS.
--- NOTE | 2021-06-20 21:15 | NUR ---
IN TO DO HS MEDS, ASSESSMENT AND ASSIST PT WITH HS CARE. PT SITTING UP AT EDGE OF BED, PT GIVEN A FEW OF THE STRAWBERRIES HIS BROUGHT HIM PER REQUEST. LUNGS CLEAR BUT DIM IN BASES, PT ON 4L/NC AND DENIES FEELING SOB. STATES HE IS HOPING HE WILL BE ABLE TO GO HOME TOMORROW. AFTER PT EATS HIS STRAWBERRIES HE IS PLANNING ON LYING DOWN FOR THE NIGHT TO SLEEP, NO FURTHER REQUESTS.
--- NOTE | 2021-06-20 23:51 | NUR ---
PT RESTING WITH EYES CLOSED, RR 18, SPO2 94% WITH 4L/O2 IN PLACE.
--- NOTE | 2021-06-21 01:11 | NUR ---
IN TO DO ASSESSMENT, PT DENIES NEEDS, BACK TO SLEEP. SPO2 95% ON 4L/O2/NC, LUNGS REMAIN CLEAR AND DIM IN BASES.
--- NOTE | 2021-06-21 03:16 | NUR ---
PT UP TO BEDSIDE TO VOID, ASSESSMENT DONE, UNCHANGED. PT REQUESTS TRAMADOL FOR FOOT PAIN, 100MG TRAMADOL GIVEN.
--- NOTE | 2021-06-21 06:47 | NUR ---
PATIENT PROVIDED WITH 200 MLS COFFEE AND A PRN NORCO FOR 7/10 NECK PAIN
--- NOTE | 2021-06-21 07:19 | EKG ---
[facility] [address] [place] [address] Signed Atrial-sensed ventricular-paced rhythm Biventricular pacemaker detected Abnormal ECG When compared with ECG of 24-JAN-2021 03:22, Vent. rate has decreased BY 5 BPM Confirmed by NEREYDA VELEZ MD ([id number]) on 06/21/2021 7:19:01 AM Electronically Signed By: NEREYDA VELEZ MD 06/21/21 0719 PATIENT NAME: RON MCKEON Electrocardiogram DATE OF : 53 PHYSICIAN: NEREYDA VELEZ MD REPORT #: [id number] REPORT IS CONFIDENTIAL AND NOT TO BE RELEASED WITHOUT AUTHORIZATION
--- NOTE | 2021-06-21 08:44 | NUR ---
PATEINT SITTING AT SIDE OF BED FRO BREAKFAST. PATIETS PERSONAL WATER BOTTLE IS NOW REMOVED FROM BEDSIDE TABLE DUE TO HIS 1600 FLUID RESTRICTION, SO THERE'S NO CONFUSION. PATIENT WAS GIVEN 200ML WATER WITH BREAKFAST. VITALS CHARTED. CALL LIGHT IN REACH
--- NOTE | 2021-06-21 12:02 | NUR ---
No change in CM plan at this time.
--- NOTE | 2021-06-21 12:15 | NUR ---
CONNECTED WITH PT-HE IS SITTING ON SIDE OF BED LEANING ON TABLE. HAS CALL LIGHT, PHONE AND PERSONAL ITEMS IN REACH. PT MENTIONED HE IS FEELING BETER ALREADY. SAID HE KNOWS WHAT HAPPENED AND THANKFUL HIS CALLED EMT'S WHEN SHE DID. PT DISCUSSED SOME ISSUES CAUSING ADDITIONAL STRESS, HOPING TO GET SOME RESOLUTION. PT REQUESTED PRAYER, WILL FOLLOW
== END 2021-06-21 14:30 | disposition home or self-care (01) ==
LOC: ED 08:16 → CCU 08:19
PROVIDERS: ADMIT Internal Medicine; ATTEND Internal Medicine
DX: I13.0 Hypertensive heart and chronic kidney disease with heart failure and stage 1 through stage 4 chronic kidney disease, or unspecified chronic kidney disease (principal); I50.23 Acute on chronic systolic (congestive) heart failure; N18.4 Chronic kidney disease, stage 4 (severe); J96.01 Acute respiratory failure with hypoxia; J44.9 Chronic obstructive pulmonary disease, unspecified; I25.2 Old myocardial infarction; M10.9 Gout, unspecified; Z95.810 Presence of automatic (implantable) cardiac defibrillator; Z95.828 Presence of other vascular implants and grafts; Z87.891 Personal history of nicotine dependence
CPT/HCPCS: 36600; 71045; 80048; 80053; 82803; 83735; 83880; 85025; 93005; 93010; 94640; 94660; A9270; C9803; J1940; U0003

== ENCOUNTER 2021-07-21 07:02 | Emergency (ER) | payer MEDICARE ==
[~2021-07-21] VITALS: Ht 175.3 cm; Wt 93.9 kg
[~2021-07-21 07:02] MED LIST changes: +AMITRIPTYLINE H10 MG PO
--- OUTSIDE RECORDS SUMMARY | 2021-07-21 07:04 | XMS ---
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 Security Auditor Medical Claims Events 1 event(s) in the past 18 months Most recent security events: Elopement at [facility] 04/10/2021 11:03 - Other Details: PATIENT LWBS CRITERIA MET - PDMP - Group Notification - [facility] - Has Care Guidelines - 6 ED Visits in 6 Months CARE PROVIDERS EDWARD FELICIANO Family Medicine 04/04/2019-Current PHONE: Unknown LUCY HERNANDEZ Family Medicine: Sports Medicine 06/22/2018-Current PHONE: Unknown KIMMIE GONZALEZ Internal Medicine 01/24/2021-Current PHONE: [phone] JEROMY HERNANDES Internal Medicine: Pulmonary Disease 10/18/2018-Current PHONE: Unknown Ananda has no Care Guidelines for this patient. Care History Medical/Surgical 02/25/2021 [facility] - PATIENT WAS REFERRED TO [facility] 12/21/20.NEXT APT WITH THE PAIN CLINIC WILL BE ON 03/06/21 AND THEN THE PAIN CONTRACT WILL BE ESTABLISHED. 06/11/2020 [facility] Patient has follow up with PCP Dr. Gonzalez on 06/12/2020. 03/13/2020 [facility] Request sent via [employer] to Dr. Gonzalez for albuterol nebulizor to help with any shortness of breath associated with this patient\T\#39;s COPD. E.D. VISIT COUNT (12 MO.) 14 [facility]. TOTAL 14 NOTE: Visits indicate total known visits. ED/C VISIT TRACKING (12 MO.) 07/21/2021 07:03 [facility] TYPE: Emergency COMPLAINT: - DIFFICULTY BREATHING 06/20/2021 08:18 [facility] TYPE: Emergency COMPLAINT: - SOB 05/19/2021 14:56 [facility] TYPE: Emergency COMPLAINT: - RIGHT ELBOW PAIN DIAGNOSES: - Olecranon bursitis, right elbow - Chronic obstructive pulmonary disease, unspecified - Hypertensive heart disease with heart failure - Other truck terminal manager (current) drug therapy - Heart failure, unspecified - longterm (current) 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 - Gout, unspecified - Personal history of nicotine dependence - Old myocardial infarction 04/13/2021 10:12 [facility] TYPE: Emergency COMPLAINT: - LEFT ARM PAIN DIAGNOSES: - Personal history of nicotine dependence - Cellulitis of left upper limb - Heart failure, unspecified - Chronic obstructive pulmonary disease, unspecified - terminal manager (current) use of aspirin - Other specified soft tissue disorders - Hypertensive heart disease with heart failure - Old myocardial infarction - Other truck terminal manager (current) drug therapy 04/10/2021 11:03 [facility] TYPE: Emergency COMPLAINT: - L HAND SWELLING/PAIN 02/25/2021 08:48 [facility] TYPE: Emergency COMPLAINT: - R ELBOW PAIN DIAGNOSES: - Personal history of nicotine dependence - Old myocardial infarction - terminal manager (current) use of aspirin - Olecranon bursitis, right elbow - Hypertensive heart disease with heart failure - Other truck terminal manager (current) drug therapy - Heart failure, unspecified - Chronic obstructive pulmonary disease, unspecified 02/18/2021 15:11 [facility] TYPE: Emergency COMPLAINT: - R ELBOW PAIN/SWELLING/ NON INJURY DIAGNOSES: - Other penitentiary (current) drug therapy - Hypertensive heart disease with heart failure - Personal history of nicotine dependence - Pain in right elbow - Olecranon bursitis, right elbow - Heart failure, unspecified - Chronic obstructive pulmonary disease, unspecified - longterm (current) 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 - Old myocardial infarction 01/31/2021 07:59 [facility] TYPE: Emergency COMPLAINT: - SOB DIAGNOSES: - Heart failure, unspecified - terminal manager (current) use of aspirin - Other truck terminal manager (current) drug therapy - Chronic obstructive pulmonary disease, unspecified - Shortness of breath - Old myocardial infarction - Hypertensive heart disease with heart failure 01/24/2021 02:57 [facility] TYPE: Emergency COMPLAINT: - DIFFICULTY BREATHING 12/15/2020 17:34 [facility] TYPE: Emergency COMPLAINT: - LT LEG PAIN DIAGNOSES: - Other chronic pain - Other truck terminal manager (current) drug therapy - Pain in left leg - Chronic obstructive pulmonary disease, unspecified - longterm (current) 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 - Heart failure, [...] unspecified - Pain in left leg - terminal manager (current) use of aspirin 11/08/2020 09:54 [facility] TYPE: Emergency COMPLAINT: - SOB 10/22/2020 13:02 [facility] TYPE: Emergency COMPLAINT: - FLU SYMPTOMS DIAGNOSES: - Hypertensive heart disease with heart failure - Heart failure, unspecified - Old myocardial infarction - Chronic obstructive pulmonary disease, unspecified - Personal history of nicotine dependence - Other truck terminal manager (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) 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 - Benign paroxysmal vertigo, left ear - longterm (current) 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 - Dizziness and giddiness 09/13/2020 01:34 [facility] TYPE: Emergency COMPLAINT: - CHEST PAIN INPATIENT VISIT TRACKING (12 MO.) 06/20/2021 08:19 [facility] TYPE: Observation COMPLAINT: - CONGESTIVE HEART FAILURE DIAGNOSES: - Acute respiratory failure with hypoxia - Old myocardial infarction - Presence of other vascular implants and grafts - Gout, unspecified - Chronic obstructive pulmonary disease, unspecified - Chronic kidney disease, stage 4 (severe) - Acute on chronic systolic (congestive) heart failure - Presence of automatic (implantable) cardiac defibrillator - Hypertensive heart and chronic kidney disease with heart failure and stage 1 through stage 4 chronic kidney disease, or unspecified chronic kidney disease - Personal history of nicotine dependence 01/24/2021 02:58 [facility] TYPE: Observation [...] cervical region - Atherosclerotic heart disease of [place] coronary artery without angina pectoris - Acute respiratory failure with hypoxia - Old myocardial infarction - Hypotension, unspecified - Presence of automatic (implantable) cardiac defibrillator - longterm (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 of antithrombotics/antiplatelets - Presence of coronary angioplasty implant and graft - longterm (current) 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 - Chronic kidney [...] or unspecified chronic kidney disease - terminal manager (current) use of aspirin - Hypothyroidism, unspecified - Other chronic pain - Hypo-osmolality and hyponatremia - Chronic obstructive pulmonary disease, unspecified - Presence of automatic (implantable) cardiac defibrillator - Atherosclerotic heart disease of [place] coronary artery without angina pectoris - longterm (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 of antithrombotics/antiplatelets - Chronic kidney disease, stage 4 (severe) - Hyperlipidemia, unspecified - Anemia in chronic kidney disease - Pure hypercholesterolemia, unspecified 09/13/2020 01:35 [facility] TYPE: Observation COMPLAINT: - DECOMPENSATED CHF DIAGNOSES: - Anemia in chronic kidney disease - Presence of automatic (implantable) cardiac defibrillator - longterm (current) 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 - Hyperlipidemia, unspecified - Chronic pain syndrome - Other truck terminal manager (current) 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
== END 2021-07-21 08:00 | disposition home or self-care (01) ==
LOC: ED 07:02
DX: J44.1 Chronic obstructive pulmonary disease with (acute) exacerbation (principal); I25.2 Old myocardial infarction; E78.00 Pure hypercholesterolemia, unspecified; I11.0 Hypertensive heart disease with heart failure; I50.9 Heart failure, unspecified; Z95.810 Presence of automatic (implantable) cardiac defibrillator; Z95.5 Presence of coronary angioplasty implant and graft; Z87.891 Personal history of nicotine dependence; Z90.49 Acquired absence of other specified parts of digestive tract; Z79.82 Long term (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; Z79.899 Other long term (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
CPT/HCPCS: 99284; J1100

== ENCOUNTER 2021-08-01 03:29 | Emergency (ER) | payer MEDICARE ==
[~2021-08-01] VITALS: Ht 175.3 cm; Wt 95.2 kg
--- OUTSIDE RECORDS SUMMARY | 2021-08-01 03:36 | XMS ---
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 04/10/2021 11:03 - Other Details: PATIENT LWBS CRITERIA MET - [facility] - Has Care Guidelines - Group Notification - 6 ED Visits in 6 Months - [facility] - 2 Visits in 30 Days CARE PROVIDERS EDWARD FEILCIANO Family Medicine 04/04/2019-Current PHONE: Unknown LUCY HERNANDEZ Family Medicine: Sports Medicine 06/22/2018-Current PHONE: Unknown [facility] 01/24/2021-Current PHONE: [phone] JEROMY HERNANDES Internal Medicine: Pulmonary Disease 10/18/2018-Current PHONE: Unknown Ananda has no Care Guidelines for this patient. Care History Medical/Surgical 02/25/[address] [facility] - PATIENT WAS REFERRED TO [facility] 12/21/20.NEXT APT WITH THE PAIN CLINIC WILL BE ON 03/06/21 AND THEN THE PAIN CONTRACT WILL BE ESTABLISHED. 06/11/[address] [facility] Patient has follow up with PCP Dr. Olivares on 06/12/2020. 03/13/[address] [facility] Request sent via [employer] works to Dr. Olivares for albuterol nebulizor to help with any shortness of breath associated with this patient\T\#39;s COPD. E.D. VISIT COUNT (12 MO.) 15 [facility]. TOTAL 15 NOTE: Visits indicate total known visits. 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 - Shortness of breath - Presence of coronary angioplasty implant and graft - Presence of automatic (implantable) cardiac defibrillator - Personal history of nicotine dependence - Hypertensive heart disease with heart failure - Heart failure, unspecified - Old myocardial infarction - Pure hypercholesterolemia, unspecified - Other shelter (current) drug therapy - Acquired absence of other specified parts of digestive tract - Chronic obstructive pulmonary disease with (acute) exacerbation 06/20/2021 08:18 [facility] TYPE: Emergency COMPLAINT: - SOB 05/19/2021 14:56 [facility] TYPE: Emergency COMPLAINT: - RIGHT ELBOW PAIN DIAGNOSES: - Olecranon bursitis, right elbow - Chronic obstructive pulmonary disease, unspecified - Hypertensive heart disease with heart failure - Other termite exterminator helper (current) drug therapy - Heart failure, unspecified - snf (current) use of aspirin - Gout, unspecified - Personal history of nicotine dependence - Old myocardial infarction 04/13/2021 10:12 [facility] TYPE: Emergency COMPLAINT: - LEFT ARM PAIN DIAGNOSES: - Personal history of nicotine dependence - Cellulitis of left upper limb - Heart failure, unspecified - Chronic obstructive pulmonary disease, unspecified - snf (current) use of aspirin - Other specified soft tissue disorders - Hypertensive heart disease with heart failure - Old myocardial infarction - Other shelter (current) drug therapy 04/10/2021 11:03 [facility] TYPE: Emergency COMPLAINT: - L HAND SWELLING/PAIN 02/25/2021 08:48 [facility] TYPE: Emergency COMPLAINT: - R ELBOW PAIN DIAGNOSES: - Personal history of nicotine dependence - Old myocardial infarction - vermin exterminator (current) use of aspirin - Olecranon bursitis, right elbow - Hypertensive heart disease with heart failure - Other termite exterminator helper (current) drug therapy - Heart failure, unspecified - Chronic obstructive pulmonary disease, unspecified 02/18/2021 15:11 [facility] TYPE: Emergency COMPLAINT: - R ELBOW PAIN/SWELLING/ NON INJURY DIAGNOSES: - Other shelter (current) drug therapy - Hypertensive heart disease with heart failure - Personal history of nicotine dependence - Pain in right elbow - Olecranon bursitis, right elbow - Heart failure, unspecified - Chronic obstructive pulmonary disease, unspecified - snf (current) use of aspirin - Old myocardial infarction 01/31/2021 07:59 [facility] TYPE: Emergency COMPLAINT: - SOB DIAGNOSES: - Heart failure, unspecified - snf (current) use of aspirin - Other termite exterminator helper (current) drug therapy - Chronic obstructive pulmonary disease, unspecified - Shortness of breath - Old myocardial infarction - Hypertensive heart disease with heart failure 01/24/2021 02:57 [facility] TYPE: Emergency COMPLAINT: - DIFFICULTY BREATHING 12/15/2020 17:34 [facility] TYPE: Emergency COMPLAINT: - LT LEG PAIN DIAGNOSES: - Other chronic pain - Other termite exterminator helper (current) drug therapy - Pain in left leg - Chronic obstructive pulmonary disease, unspecified - vermin exterminator (current) use of aspirin - Heart failure, unspecified - Hypertensive heart disease with heart failure - Old myocardial infarction 11/16/2020 18:29 [facility] TYPE: Emergency COMPLAINT: - LEG PN DIAGNOSES: - Old myocardial infarction - Other shelter (current) drug therapy - Myoclonus - Personal history of nicotine dependence - Hypertensive heart disease with heart failure - Heart failure, unspecified - Chronic obstructive pulmonary disease, unspecified - Pain in left leg - vermin exterminator (current) use of aspirin 11/08/2020 09:54 [facility] TYPE: Emergency COMPLAINT: - SOB 10/22/2020 13:02 [facility] TYPE: Emergency COMPLAINT: - FLU SYMPTOMS DIAGNOSES: - Hypertensive heart disease with heart failure - Heart failure, unspecified - Old myocardial infarction - Chronic obstructive pulmonary disease, unspecified - Personal history of nicotine dependence - Other shelter (current) drug therapy - Benign paroxysmal vertigo, left ear - vermin exterminator (current) use of aspirin - Dizziness and [...] cervical region - Atherosclerotic heart disease of [place] coronary artery without angina pectoris - Acute respiratory failure with hypoxia - Old myocardial infarction - Hypotension, unspecified - Presence of automatic (implantable) cardiac defibrillator - vermin exterminator (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 of antithrombotics/antiplatelets - Presence of coronary angioplasty implant and graft - snf (current) use of aspirin - Chronic kidney [...] cardiac defibrillator - Atherosclerotic heart disease of [place] coronary artery without angina pectoris - vermin exterminator (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 of antithrombotics/antiplatelets - Chronic kidney [...] - Chronic pain syndrome - Other termite exterminator helper (current) drug therapy - Presence of coronary [...] deficiency, unspecified - Atherosclerotic heart disease of [place] coronary artery without angina pectoris - vermin exterminator (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 of antithrombotics/antiplatelets [email or web address]
[2021-08-01] MEDS ORDERED: TORSEMIDE20 MG PO (03:44)
--- NOTE | 2021-08-01 20:27 | EKG ---
[facility] [address] [place] [address] Signed Atrial-sensed ventricular-paced rhythm Abnormal ECG When compared with ECG of 20-JUN-2021 08:37, Vent. rate has decreased BY 12 BPM Confirmed by HUEY GORDON DO ([id number]) on 08/01/2021 8:27:02 PM Electronically Signed By: HUEY GORDON DO 08/01/212026 PATIENT NAME: RON MCKEON RACHEL Electrocardiogram DATE OF : 53 PHYSICIAN: HUEY GORDON DO REPORT #: [id number] REPORT IS CONFIDENTIAL AND NOT TO BE RELEASED WITHOUT AUTHORIZATION
== END 2021-08-01 09:52 | disposition short-term general hospital (02) ==
LOC: ED 03:29
DX: I21.4 Non-ST elevation (NSTEMI) myocardial infarction (principal); I11.0 Hypertensive heart disease with heart failure; I50.9 Heart failure, unspecified; I25.2 Old myocardial infarction; E78.00 Pure hypercholesterolemia, unspecified; J44.9 Chronic obstructive pulmonary disease, unspecified; M10.9 Gout, unspecified; Z87.891 Personal history of nicotine dependence; Z79.899 Other long term (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; Z79.82 Long term (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
CPT/HCPCS: 71045; 80053; 83735; 83880; 84484; 85025; 93005; 93010; 96374; 96375; 99285-25; C9803; J1644; J1940; U0003

== ENCOUNTER 2021-08-19 09:25 | Emergency (ER) | payer OTHER ==
[~2021-08-19] VITALS: Ht 175.3 cm; Wt 95.2 kg
--- NOTE | 2021-08-19 20:02 | EKG ---
[facility] [address] [facility] [place] [address] Signed Atrial-sensed ventricular-paced rhythm with occasional premature ventricular complexes Biventricular pacemaker detected Abnormal ECG When compared with ECG of 01-AUG-2021 03:48, premature ventricular complexes are now present Vent. rate has decreased BY 28 BPM Confirmed by HUEY GORDON DO ([id number]) on 08/19/2021 8:02:43 PM Electronically Signed By: HUEY GORDON DO 08/19/212001 PATIENT NAME: RON MCKEON RACHEL Electrocardiogram DATE OF : 53 PHYSICIAN: HUEY GORDON DO REPORT #: [id number] REPORT IS CONFIDENTIAL AND NOT TO BE RELEASED WITHOUT AUTHORIZATION
== END 2021-08-19 12:12 | disposition home or self-care (01) ==
LOC: ED 09:25
DX: R53.1 Weakness (principal); I25.2 Old myocardial infarction; I11.0 Hypertensive heart disease with heart failure; I50.9 Heart failure, unspecified; J44.9 Chronic obstructive pulmonary disease, unspecified; M10.9 Gout, unspecified; Z87.891 Personal history of nicotine dependence; Z79.899 Other long term (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; Z79.82 Long term (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
CPT/HCPCS: 71045; 80053; 81001; 83880; 84484; 85025; 93005; 93010; 99285-25

== ENCOUNTER 2021-10-12 00:10 | Emergency (ER) | payer MEDICARE ==
[~2021-10-12] VITALS: Ht 175.3 cm; Wt 95.3 kg
--- OUTSIDE RECORDS SUMMARY | 2021-10-12 00:12 | XMS ---
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 Events 1 event(s) in the past 18 months Most recent security events: Elopement at [facility] 04/10/2021 11:03 - Other Details: PATIENT LWBS CRITERIA MET - PDMP - 6 ED Visits in 6 Months - [facility] - Has Care Guidelines - Group Notification CARE PROVIDERS EDWARD FELICIANO Family Medicine 04/04/2019-Current PHONE: Unknown LUCY HERNANDEZ Family Medicine: Sports Medicine 06/22/2018-Current PHONE: Unknown KIMMIE GONZALEZ Internal Medicine 01/24/2021-Current PHONE: [phone] JEROMY HERNANDES Internal Medicine: Pulmonary Disease 10/18/2018-Current PHONE: Unknown Ananda has no Care Guidelines for this patient. Care History Medical/Surgical 08/07/2021 [facility] Follow up visit with DR. Gonzalez on 08/08/2021 and 08/22/2021 02/25/2021 [facility] - PATIENT WAS REFERRED TO [facility] 12/21/20.NEXT APT WITH THE PAIN CLINIC WILL BE ON 03/06/21 AND THEN THE PAIN CONTRACT WILL BE ESTABLISHED. 06/11/2020 [facility] Patient has follow up with PCP Dr. Gonzalez on 06/12/2020. E.D. VISIT COUNT (12 MO.) 16 [facility]. TOTAL 16 NOTE: Visits indicate total known visits. ED/UCC VISIT TRACKING (12 MO.) 10/12/2021 00:11 [facility] TYPE: Emergency COMPLAINT: - SORE THROAT, SHORTNESS OF BREATH 08/19/2021 09:26 [facility] TYPE: Emergency COMPLAINT: - WEAKNESS DIAGNOSES: - Personal history of nicotine dependence - Heart failure, unspecified - Weakness - Old myocardial infarction - Gout, unspecified - Chronic obstructive pulmonary disease, unspecified - Hypertensive heart disease with heart failure - [facility] (current) use of aspirin - [facility] [place] drug therapy 08/01/2021 03:30 [facility] TYPE: Emergency COMPLAINT: - DIFFICULTY BREATHING DIAGNOSES: - 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 - Shortness of breath - Personal history of nicotine dependence - Chronic obstructive pulmonary disease, unspecified - Gout, unspecified - Old myocardial infarction - Heart failure, unspecified - Non-ST elevation (NSTEMI) myocardial infarction - Pure hypercholesterolemia, unspecified - Hypertensive heart disease with heart failure - [facility] [place] drug therapy 07/21/2021 07:03 [facility] TYPE: Emergency COMPLAINT: - DIFFICULTY BREATHING DIAGNOSES: - 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 - Shortness of breath - Presence of coronary angioplasty implant and graft - Presence of automatic (implantable) cardiac defibrillator - Personal history of nicotine dependence - Hypertensive heart disease with heart failure - Heart failure, unspecified - Old myocardial infarction - Pure hypercholesterolemia, unspecified - Other termite control servicer (current) drug therapy - Acquired absence of other specified parts of digestive tract - Chronic obstructive pulmonary disease with (acute) exacerbation 06/20/2021 08:18 [facility] TYPE: Emergency COMPLAINT: - SOB 05/19/2021 14:56 [facility] TYPE: Emergency COMPLAINT: - RIGHT ELBOW PAIN DIAGNOSES: - Olecranon bursitis, right elbow - Chronic obstructive pulmonary disease, unspecified - Hypertensive heart disease with heart failure - [facility] [place] [facility] drug therapy - Heart failure, unspecified - 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 - Gout, unspecified - Personal history of nicotine dependence - Old myocardial infarction 04/13/2021 10:12 [facility] TYPE: Emergency COMPLAINT: - LEFT ARM PAIN DIAGNOSES: - Personal history of nicotine dependence - Cellulitis of left upper limb - Heart failure, unspecified - Chronic obstructive pulmonary disease, unspecified - 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 - Other specified soft tissue disorders - Hypertensive heart disease with heart failure - Old myocardial infarction - Other termite control servicer (current) drug therapy 04/10/2021 11:03 [facility] TYPE: Emergency COMPLAINT: - L HAND SWELLING/PAIN 02/25/2021 08:48 [facility] TYPE: Emergency COMPLAINT: - R ELBOW PAIN DIAGNOSES: - Personal history of nicotine dependence - Old myocardial infarction - 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 - Olecranon bursitis, right elbow - Hypertensive heart disease with heart failure - Other termite control servicer (current) drug therapy - Heart failure, unspecified - Chronic obstructive pulmonary disease, unspecified 02/18/2021 15:11 [facility] TYPE: Emergency COMPLAINT: - R ELBOW PAIN/SWELLING/ NON INJURY DIAGNOSES: - Other termite control servicer (current) drug therapy - Hypertensive heart disease with heart failure - Personal history of nicotine dependence - Pain in right elbow - Olecranon bursitis, right elbow - Heart failure, unspecified - Chronic obstructive pulmonary disease, unspecified - [facility] (current) use of aspirin - Old myocardial infarction 01/31/2021 07:59 [facility] TYPE: Emergency COMPLAINT: - SOB DIAGNOSES: - Heart failure, unspecified - 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 - [facility] [place] drug therapy - Chronic obstructive pulmonary disease, unspecified - Shortness of breath - Old myocardial infarction - Hypertensive heart disease with heart failure 01/24/2021 02:57 [facility] TYPE: Emergency COMPLAINT: - DIFFICULTY BREATHING 12/15/2020 17:34 [facility] TYPE: Emergency COMPLAINT: - LT LEG PAIN DIAGNOSES: - Other chronic pain - [facility] [place] [facility] (current[facility] drug therapy - Pain in left leg - Chronic obstructive pulmonary disease, unspecified - [facility] (current) use of aspirin - Heart failure, unspecified - Hypertensive heart disease with heart failure - Old myocardial infarction 11/16/2020 18:29 [facility] TYPE: Emergency COMPLAINT: - LEG PN DIAGNOSES: - Old myocardial infarction - Other termite control servicer (current) drug therapy - Myoclonus - Personal [...] Personal history of nicotine dependence - [facility] [place] [facility] (current[facility] drug therapy - Benign paroxysmal vertigo, left ear - 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 - Dizziness and giddiness INPATIENT VISIT TRACKING (12 MO.) 08/01/2021 11:12 [facility] TYPE: Internal Medicine DIAGNOSES: - elevated troponin - Chronic systolic (congestive) heart failure - Ischemic cardiomyopathy 06/20/2021 08:19 [facility] TYPE: Observation [...] cervical region - Atherosclerotic heart disease of [place] coronary artery without angina pectoris - Acute [...] cardiac defibrillator - Atherosclerotic heart disease of [place] coronary artery without angina pectoris - [facility] (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 of antithrombotics/antiplatelets - Chronic kidney disease, stage 4 (severe) - Hyperlipidemia, unspecified - Anemia in chronic kidney disease - Pure hypercholesterolemia, unspecified [email or web address]
== END 2021-10-12 04:00 | disposition home or self-care (01) ==
LOC: ED 00:10
DX: U07.1 COVID-19 (principal); Z23 Encounter for immunization; I25.2 Old myocardial infarction; E78.00 Pure hypercholesterolemia, unspecified; M19.90 Unspecified osteoarthritis, unspecified site; J44.9 Chronic obstructive pulmonary disease, unspecified; I11.0 Hypertensive heart disease with heart failure; I50.9 Heart failure, unspecified; M10.9 Gout, unspecified; Z87.891 Personal history of nicotine dependence; Z79.82 Long term (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; Z79.899 Other long term (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
CPT/HCPCS: 36415; 71045; 80053; 83880; 85025; 96374; 99285-25; C9803; J1100; J7040; M0247; U0003

== ENCOUNTER 2021-11-01 13:04 | Emergency (ER) | payer MEDICARE ==
[~2021-11-01] VITALS: Ht 175.3 cm; Wt 95.2 kg
--- OUTSIDE RECORDS SUMMARY | 2021-11-01 13:06 | XMS ---
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 1 event(s) in the past 18 months Most recent security events: Elopement at [facility] 04/10/2021 11:03 - Other Details: PATIENT LWBS CRITERIA MET - ED - Positive COVID-19 Lab Result - [facility] - [facility] - 2 Visits in 30 Days - 6 ED Visits in 6 Months - PDMP - Group Notification - [facility] - Has Care Guidelines CARE PROVIDERS EDWARD FELICIANO Family Medicine 04/04/2019-Current PHONE: Unknown LUCY HERNANDEZ Family Medicine: Sports Medicine 06/22/2018-Current PHONE: Unknown KIMMIE GONZALEZ Internal Medicine 01/24/2021-Current PHONE: [phone] JEROMY HERNANDES Internal Medicine: Pulmonary Disease 10/18/2018-Current PHONE: Unknown Ananda has no Care Guidelines for this patient. Care History Medical/Surgical 10/14/2021 [facility] Follow up with Dr. Gonzalez on 10/24/2021. 08/07/2021 [facility] Follow up visit with DR. Gonzalez on 08/08/2021 and 08/22/2021 02/25/2021 [facility] - PATIENT WAS REFERRED TO [facility] 12/21/20.NEXT APT WITH THE PAIN CLINIC WILL BE ON 03/06/21 AND THEN THE PAIN CONTRACT WILL BE ESTABLISHED. Jeff VISIT COUNT (12 MO.) 16 [facility]. TOTAL 16 NOTE: Visits indicate total known visits. ED/UCC VISIT TRACKING (12 MO.) 11/01/2021 13:04 [facility] [place] TYPE: Emergency COMPLAINT: - PAIN IN LEGS 10/12/2021 00:11 [facility] [place] TYPE: Emergency COMPLAINT: - SORE THROAT, SHORTNESS OF BREATH DIAGNOSES: - Unspecified osteoarthritis, unspecified site - Pure hypercholesterolemia, unspecified - Shortness of breath - Encounter for immunization - Old myocardial infarction - Hypertensive heart disease with heart failure - Other senior living (current) drug therapy - COVID-19 - Heart failure, unspecified - Personal history of nicotine dependence - Gout, unspecified - Chronic obstructive pulmonary disease, unspecified - 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 08/19/2021 09:26 [facility] [place] TYPE: Emergency COMPLAINT: - WEAKNESS DIAGNOSES: - Personal history of nicotine dependence - Heart failure, unspecified - Weakness - Old myocardial infarction - Gout, unspecified - Chronic obstructive pulmonary disease, unspecified - Hypertensive heart disease with heart failure - 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 - Other termite control servicer (current) drug therapy 08/01/2021 03:30 [facility] [place] TYPE: Emergency COMPLAINT: - DIFFICULTY BREATHING DIAGNOSES: - MCC (current) use of aspirin - Shortness of breath - Personal history of nicotine dependence - Chronic obstructive pulmonary disease, unspecified - Gout, unspecified - Old myocardial infarction - Heart failure, unspecified - Non-ST elevation (NSTEMI) myocardial infarction - Pure hypercholesterolemia, unspecified - Hypertensive heart disease with heart failure - Other termite control servicer (current) drug therapy 07/21/2021 07:03 [facility] [place] TYPE: Emergency COMPLAINT: - DIFFICULTY BREATHING DIAGNOSES: - 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 - Shortness of breath - Presence of coronary angioplasty implant and graft - Presence of automatic (implantable) cardiac defibrillator - Personal history of nicotine dependence - Hypertensive heart disease with heart failure - Heart failure, unspecified - Old myocardial infarction - Pure hypercholesterolemia, unspecified - Other senior living (current) drug therapy - Acquired absence of [...] drug therapy - Heart failure, unspecified - MCC (current) use of aspirin - Gout, unspecified [...] nicotine dependence - Old myocardial infarction - MCC (current) use of aspirin - Olecranon bursitis, right elbow - Hypertensive heart disease with heart failure - Other termite control servicer (current) drug therapy - Heart failure, unspecified - Chronic obstructive pulmonary disease, unspecified 02/18/2021 15:11 [facility] [place] TYPE: Emergency COMPLAINT: - R ELBOW PAIN/SWELLING/ NON INJURY DIAGNOSES: - Other senior living (current) drug therapy - Hypertensive heart disease with heart failure - Personal history of nicotine dependence - Pain in right elbow - Olecranon bursitis, right elbow - Heart failure, unspecified - Chronic obstructive pulmonary disease, unspecified - 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 - Old myocardial infarction 01/31/2021 07:59 [facility] [place] TYPE: Emergency COMPLAINT: - SOB DIAGNOSES: - Heart failure, unspecified - MCC (current) use of aspirin - Other termite control servicer (current) drug therapy - Chronic obstructive pulmonary disease, unspecified - Shortness of breath - Old myocardial infarction - Hypertensive heart disease with heart failure 01/24/2021 02:57 [facility] [place] TYPE: Emergency COMPLAINT: - DIFFICULTY BREATHING 12/15/2020 17:34 [facility] [place] TYPE: Emergency COMPLAINT: - LT LEG PAIN DIAGNOSES: - Other chronic pain - Other senior living (current) drug therapy - Pain in left leg - Chronic obstructive pulmonary disease, unspecified - 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 - Heart failure, [...] (current) use of aspirin 11/08/2020 09:54 [facility] TYPE: Emergency COMPLAINT: - SOB INPATIENT VISIT TRACKING (12 MO.) 08/01/2021 11:12 [facility] [place] TYPE: Internal Medicine DIAGNOSES: - elevated troponin [...] cervical region - Atherosclerotic heart disease of [place] coronary artery without angina pectoris - Acute respiratory failure with hypoxia - Old myocardial infarction - Hypotension, unspecified - Presence of automatic (implantable) cardiac defibrillator - 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 (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 of antithrombotics/antiplatelets - Presence of coronary angioplasty implant and graft - MCC (current) use of aspirin - Chronic kidney [...] or unspecified chronic kidney disease - 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 - Hypothyroidism, unspecified - Other chronic pain - Hypo-osmolality and hyponatremia - Chronic obstructive pulmonary disease, unspecified - Presence of automatic (implantable) cardiac defibrillator - Atherosclerotic heart disease of [place] coronary artery without angina pectoris - 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 (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 of antithrombotics/antiplatelets - Chronic kidney disease, stage 4 (severe) - Hyperlipidemia, unspecified - Anemia in chronic kidney disease - Pure hypercholesterolemia, unspecified [email or web address]
[2021-11-01] MEDS ORDERED: HYDROCODON-ACE1 EAC8 PO (15:06)
== END 2021-11-01 15:15 | disposition home or self-care (01) ==
LOC: ED 13:04
DX: G57.92 Unspecified mononeuropathy of left lower limb (principal); M19.90 Unspecified osteoarthritis, unspecified site; I25.2 Old myocardial infarction; E78.00 Pure hypercholesterolemia, unspecified; J44.9 Chronic obstructive pulmonary disease, unspecified; I11.0 Hypertensive heart disease with heart failure; I50.9 Heart failure, unspecified; M10.9 Gout, unspecified; Z87.891 Personal history of nicotine dependence; Z79.899 Other long term (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; Z79.82 Long term (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
CPT/HCPCS: 99283

== ENCOUNTER 2021-12-27 16:46 | Emergency (ER) | payer MEDICARE ==
[~2021-12-27] VITALS: Ht 175.3 cm; Wt 95.7 kg
--- OUTSIDE RECORDS SUMMARY | 2021-12-27 16:48 | XMS ---
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 - Has Care Guidelines - 6 ED Visits in 6 Months - PDMP CARE PROVIDERS EDWARD FELICIANO Family Medicine 04/04/2019-Current PHONE: Unknown LUCY HERNANDEZ [facility] 06/22/2018-Current PHONE: Unknown KIMMIE GONZALEZ Internal Medicine 01/24/2021-Current PHONE: [phone] JEROMY HERNANDES Internal Medicine: Pulmonary Disease 10/18/2018-Current PHONE: Unknown Ananda has no Care Guidelines for this patient. Care History Medical/Surgical 11/04/2021 [facility] \T\nbsp; Care Recommendation: \T\nbsp;\T\nbsp;\T\nbsp;\T\nbsp;\T\nbsp;\T\nbsp; \T\nbsp;\T\nbsp; PLEASE REVIEW PDMP - ANANDA \T\nbsp;\T\nbsp;\T\nbsp;\T\nbsp;\T\ nbsp;\T\nbsp;\T\nbsp;\T\nbsp; USE EXTREME CAUTION IN GIVING NARCOTICS. \T\ nbsp;\T\nbsp;\T\nbsp;\T\nbsp;\T\nbsp;\T\nbsp;\T\nbsp;\T\nbsp; Avoid Discharge Narcotic prescriptions if at all possible. Physician discretion. 11/03/2021 [facility] - PATIENT WAS REFERRED TO [facility] 12/21/20.NEXT APT WITH THE PAIN CLINIC WILL BE ON 03/06/21 AND THEN THE PAIN CONTRACT WILL BE ESTABLISHED. - PATIENT HAS TWO PRIMARY CARE PHYSICIANS- DR GONZALEZ AND DR FELICIANO AT [facility]. PLEASE CONTACT [facility] BEFORE PRESCRIBING PAIN MEDICATION. PROVIDER DISCRETION. 10/14/2021 [facility] Follow up with Dr. Gonzalez on 10/24/2021. E.D. VISIT COUNT (12 MO.) [address] [facility] [place] TOTAL 14 NOTE: Visits indicate total known visits. ED/UCC VISIT TRACKING (12 MO.) 12/27/2021 16:47 [facility] [place] TYPE: Emergency COMPLAINT: - CONGESTION 11/01/2021 13:04 [facility] [place] TYPE: Emergency COMPLAINT: - PAIN IN LEGS DIAGNOSES: - Pure hypercholesterolemia, unspecified - residential (current) use of aspirin - Other usp (current) drug therapy - Old myocardial infarction - Chronic obstructive pulmonary disease, unspecified - Personal history of nicotine dependence - Gout, unspecified - Hypertensive heart disease with heart failure - Unspecified osteoarthritis, unspecified site - Heart failure, unspecified - Pain in left foot - Unspecified mononeuropathy of left lower limb 10/12/2021 00:11 [facility] [place] TYPE: Emergency COMPLAINT: - SORE THROAT, SHORTNESS OF BREATH DIAGNOSES: - Unspecified osteoarthritis, unspecified site - Pure hypercholesterolemia, unspecified - Shortness of breath - Encounter for immunization - Old myocardial infarction - Hypertensive heart disease with heart failure - Other usp (current) drug therapy - COVID-19 - Heart failure, unspecified - Personal history of nicotine dependence - Gout, unspecified - Chronic obstructive pulmonary disease, unspecified - residential (current) use of aspirin 08/19/2021 09:26 [facility] [place] TYPE: Emergency COMPLAINT: - WEAKNESS DIAGNOSES: - Personal history of nicotine dependence - Heart failure, unspecified - Weakness - Old myocardial infarction - Gout, unspecified - Chronic obstructive pulmonary disease, unspecified - Hypertensive heart disease with heart failure - 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 (current) use of aspirin - Other usp (current) drug therapy 08/01/2021 03:30 [facility] [place] TYPE: Emergency COMPLAINT: - DIFFICULTY BREATHING DIAGNOSES: - 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 (current) use of aspirin - Shortness of breath - Personal history of nicotine dependence - Chronic obstructive pulmonary disease, unspecified - Gout, unspecified - Old myocardial infarction - Heart failure, unspecified - Non-ST elevation (NSTEMI) myocardial infarction - Pure hypercholesterolemia, unspecified - Hypertensive heart disease with heart failure - Other termite treater helper (current) drug therapy 07/21/2021 07:03 [facility] [place] TYPE: Emergency COMPLAINT: - DIFFICULTY BREATHING DIAGNOSES: - residential (current) use of aspirin - Shortness of breath - Presence of coronary angioplasty implant and graft - Presence of automatic (implantable) cardiac defibrillator - Personal history of nicotine dependence - Hypertensive heart disease with heart failure - Heart failure, unspecified - Old myocardial infarction - Pure hypercholesterolemia, unspecified - Other termite treater helper (current) drug therapy - Acquired absence of [...] disease with heart failure - Other termite treater helper (current) drug therapy - Heart failure, unspecified - residential (current) use of aspirin - Gout, unspecified - Personal history of nicotine dependence - Old myocardial infarction 04/13/2021 10:12 [facility] [place] TYPE: Emergency COMPLAINT: - LEFT ARM PAIN DIAGNOSES: - Personal history of nicotine dependence - Cellulitis of left upper limb - Heart failure, unspecified - Chronic obstructive pulmonary disease, unspecified - residential (current) use of aspirin - Other specified soft tissue disorders - Hypertensive heart disease with heart failure - Old myocardial infarction - Other termite treater helper (current) drug therapy 04/10/2021 11:03 [facility] [place] TYPE: Emergency COMPLAINT: - L HAND SWELLING/PAIN 02/25/2021 08:48 [facility] [place] TYPE: Emergency COMPLAINT: - R ELBOW PAIN DIAGNOSES: - Personal history of nicotine dependence - Old myocardial infarction - residential (current) use of aspirin - Olecranon bursitis, right elbow - Hypertensive heart disease with heart failure - Other usp (current) drug therapy - Heart failure, unspecified - Chronic obstructive pulmonary disease, unspecified 02/18/2021 15:11 [facility] [place] TYPE: Emergency COMPLAINT: - R ELBOW PAIN/SWELLING/ NON INJURY DIAGNOSES: - Other usp (current) drug therapy - Hypertensive heart disease with heart failure - Personal history of nicotine dependence - Pain in right elbow - Olecranon bursitis, right elbow - Heart failure, unspecified - Chronic obstructive pulmonary disease, unspecified - 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 (current) use of aspirin - Old myocardial infarction 01/31/2021 07:59 [facility] [place] TYPE: Emergency COMPLAINT: - SOB DIAGNOSES: - Heart failure, unspecified - 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 (current) use of aspirin - Other termite treater helper (current) drug therapy - Chronic obstructive pulmonary disease, unspecified - Shortness of breath - Old myocardial infarction - Hypertensive heart disease with heart failure 01/24/2021 02:57 [facility] TYPE: Emergency COMPLAINT: - DIFFICULTY BREATHING INPATIENT VISIT TRACKING (12 MO.) 08/01/2021 11[facility] [place] [facility]: Internal [facility] DIAGNOSES: - elevated troponin [...] Personal history of nicotine dependence 01/24/2021 02:[address] [facility] [place] TYPE: Observation COMPLAINT: - CHF/ACUTE RESP [...] cervical region - Atherosclerotic heart disease of [place] coronary artery without angina pectoris - Acute respiratory failure with hypoxia - Old myocardial infarction - Hypotension, unspecified - Presence of automatic (implantable) cardiac defibrillator - residential (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 of antithrombotics/antiplatelets - Presence of coronary angioplasty implant and graft - 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 (current) use of aspirin - Chronic kidney disease, stage 4 (severe) - Pure hypercholesterolemia, unspecified - Vitamin D deficiency, unspecified [email or web address]
[2021-12-27] MEDS ORDERED: AMOXICILLIN500 MG PO (18:07)
== END 2021-12-27 18:18 | disposition home or self-care (01) ==
LOC: ED 16:46
DX: J01.90 Acute sinusitis, unspecified (principal); M19.09 Primary osteoarthritis, other specified site; I25.2 Old myocardial infarction; E78.00 Pure hypercholesterolemia, unspecified; J44.9 Chronic obstructive pulmonary disease, unspecified; I11.0 Hypertensive heart disease with heart failure; I50.9 Heart failure, unspecified; M10.9 Gout, unspecified; Z87.891 Personal history of nicotine dependence; Z79.899 Other long term (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; Z79.82 Long term (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
CPT/HCPCS: 99283

== ENCOUNTER 2022-01-26 09:35 | Emergency (ER) | payer MEDICARE ==
[~2022-01-26] VITALS: Ht 175.3 cm; Wt 95.7 kg
[~2022-01-26 09:35] MED LIST changes: +AMOXICILLIN500 MG PO
--- OUTSIDE RECORDS SUMMARY | 2022-01-26 09:38 | XMS ---
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 - 2 Visits in 30 Days - PDMP - [facility] - Has Care Guidelines CARE PROVIDERS EDWARD FELICIANO [facility] Medicine 04/04/2019-Current PHONE: Unknown LUCY HERNANDEZ [facility] 06/22/2018-Current PHONE: Unknown [facility] Internal Medicine 01/24/2021-Current PHONE: Unknown JEROMY HERNANDES Internal Medicine: Pulmonary Disease 10/18/2018-Current PHONE: Unknown Ananda has no Care Guidelines for this patient. Care History Medical/Surgical 11/04/2021 [facility] \T\nbsp; Care Recommendation: \T\nbsp;\T\nbsp;\T\nbsp;\T\nbsp;\T\nbsp;\T\nbsp; \T\nbsp;\T\nbsp; PLEASE REVIEW MESHAP - ANANDA \T\nbsp;\T\nbsp;\T\nbsp;\T\nbsp;\T\ nbsp;\T\nbsp;\T\nbsp;\T\nbsp; USE EXTREME CAUTION IN GIVING NARCOTICS. \T\ nbsp;\T\nbsp;\T\nbsp;\T\nbsp;\T\nbsp;\T\nbsp;\T\nbsp;\T\nbsp; Avoid Discharge Narcotic prescriptions if at all possible. Physician discretion. 11/03/2021 [facility] - PATIENT WAS REFERRED TO [facility] 12/21/20.NEXT APT WITH THE PAIN CLINIC WILL BE ON 03/06/21 AND THEN THE PAIN CONTRACT WILL BE ESTABLISHED. - PATIENT HAS TWO PRIMARY CARE PHYSICIANS- DR GONZALEZ AND DR FELICIANO AT [facility]. PLEASE CONTACT [facility] BEFORE PRESCRIBING PAIN MEDICATION. PROVIDER DISCRETION. 10/14/2021 [facility] Follow up with Dr. Gonzalez on 10/24/2021. E.D. VISIT COUNT (12 MO.) [address] [facility] [address] [place] TOTAL 14 NOTE: Visits indicate total known visits. 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 - Acute sinusitis, unspecified - Primary osteoarthritis, other specified site - Personal history of nicotine dependence - Old myocardial infarction - Pure hypercholesterolemia, unspecified - Other penitentiary (current) drug therapy - Heart failure, unspecified - Chronic obstructive pulmonary disease, unspecified 11/01/2021 13:04 [facility] [place] TYPE: Emergency COMPLAINT: - PAIN IN LEGS DIAGNOSES: - Pure hypercholesterolemia, unspecified - 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 (current) use of aspirin - Other terminal make up operator (current) drug therapy - Old myocardial infarction [...] disease with heart failure - Other terminal make up operator (current) drug therapy - COVID-19 - Heart failure, unspecified - Personal history of nicotine dependence - Gout, unspecified - Chronic obstructive pulmonary disease, unspecified - senior living (current) use of aspirin 08/19/2021 09:26 [facility] [place] TYPE: Emergency COMPLAINT: - WEAKNESS DIAGNOSES: - Personal history of nicotine dependence - Heart failure, unspecified - Weakness - Old myocardial infarction - Gout, unspecified - Chronic obstructive pulmonary disease, unspecified - Hypertensive heart disease with heart failure - senior living (current) use of aspirin - Other penitentiary (current) drug therapy 08/01/2021 03:30 [facility] [place] TYPE: Emergency COMPLAINT: - DIFFICULTY BREATHING DIAGNOSES: - senior living (current) use of aspirin - Shortness of breath - Personal history of nicotine dependence - Contact with and (suspected) exposure to COVID-19 - Chronic obstructive pulmonary disease, unspecified - Gout, unspecified - Old myocardial infarction - Heart failure, unspecified - Non-ST elevation (NSTEMI) myocardial infarction - Pure hypercholesterolemia, unspecified - Hypertensive heart disease with heart failure - Other penitentiary (current) drug therapy 07/21/2021 07:03 [facility] [place] TYPE: Emergency COMPLAINT: - DIFFICULTY BREATHING DIAGNOSES: - 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 (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 - Shortness of breath - Presence of coronary angioplasty implant and graft - Presence of automatic (implantable) cardiac defibrillator - Personal history of nicotine dependence - Hypertensive heart disease with heart failure - Heart failure, unspecified - Old myocardial infarction - Pure hypercholesterolemia, unspecified - Other penitentiary (current) drug therapy - Acquired absence of [...] disease with heart failure - Other terminal make up operator (current) drug therapy - Heart failure, unspecified - 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 (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 - Gout, unspecified - Personal history of nicotine dependence - Old myocardial infarction 04/13/2021 10:12 [facility] [place] TYPE: Emergency COMPLAINT: - LEFT ARM PAIN DIAGNOSES: - Personal history of nicotine dependence - Cellulitis of left upper limb - Heart failure, unspecified - Chronic obstructive pulmonary disease, unspecified - senior living (current) use of aspirin - Other specified soft tissue disorders - Hypertensive heart disease with heart failure - Old myocardial infarction - Other penitentiary (current) drug therapy 04/10/2021 11:03 [facility] [place] TYPE: Emergency COMPLAINT: - L HAND SWELLING/PAIN 02/25/2021 08:48 [facility] [place] TYPE: Emergency COMPLAINT: - R ELBOW PAIN DIAGNOSES: - Personal history of nicotine dependence - Old myocardial infarction - senior living (current) use of aspirin - Olecranon bursitis, right elbow - Hypertensive heart disease with heart failure - Other terminal make up operator (current) drug therapy - Heart failure, unspecified [...] - Chronic obstructive pulmonary disease, unspecified - 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 (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 - Old myocardial infarction 01/31/2021 07:59 [facility] [place] TYPE: Emergency COMPLAINT: - SOB DIAGNOSES: - Heart failure, unspecified - 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 (current) 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 of 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 - Other penitentiary (current) drug therapy - Chronic obstructive pulmonary disease, unspecified - Shortness of breath - Old myocardial infarction - Hypertensive heart disease with heart failure INPATIENT VISIT TRACKING (12 MO.) 08/01/2021 11:12 [facility] TYPE: Internal Medicine DIAGNOSES: - elevated troponin - Chronic systolic (congestive) heart failure - Ischemic cardiomyopathy 06/20/2021 08:19 [facility] [place] TYPE: Observation COMPLAINT: - CONGESTIVE HEART FAILURE DIAGNOSES: - Acute respiratory failure with hypoxia - Old myocardial infarction - Presence of other vascular implants and grafts - Gout, unspecified - Contact with and (suspected) exposure to COVID-19 - Chronic obstructive pulmonary disease, unspecified - Chronic kidney disease, stage 4 (severe) - Acute on chronic systolic (congestive) heart failure - Presence of automatic (implantable) cardiac defibrillator - Hypertensive heart and chronic kidney disease with heart failure and stage 1 through stage 4 chronic kidney disease, or unspecified chronic kidney disease - Personal history of nicotine dependence [email or web address]
[2022-01-26] MEDS ORDERED: GABAPENTIN300 MG PO (10:31)
== END 2022-01-26 13:35 | disposition home or self-care (01) ==
LOC: ED 09:35
DX: I11.0 Hypertensive heart disease with heart failure (principal); I50.9 Heart failure, unspecified; I25.2 Old myocardial infarction; M10.9 Gout, unspecified; J44.9 Chronic obstructive pulmonary disease, unspecified; Z87.891 Personal history of nicotine dependence; Z79.899 Other long term (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; Z79.82 Long term (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
CPT/HCPCS: 36415; 71045; 80053; 83880; 84484; 85025; 93005; 93010; 96374; 99285-25; J1940

== ENCOUNTER 2022-01-29 01:34 | Observation (INO) | payer OTHER ==
[~2022-01-29] VITALS: Ht 175.3 cm; Wt 93.8 kg
--- OUTSIDE RECORDS SUMMARY | 2022-01-29 01:38 | XMS ---
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(s) in the past 18 months Most recent security events: Elopement at [facility] 04/10/2021 11:03 - Other Details: PATIENT LWBS CRITERIA MET - 6 ED Visits in 6 Months - [facility] - 2 Visits in 30 Days - PDMP - Group Notification - [facility] - Has Care Guidelines CARE PROVIDERS EDWARD FELICIANO [facility] 04/04/2019-Current PHONE: Unknown LUCY HERNANDEZ [facility] 06/22/2018-Current PHONE: Unknown CARLOS [facility] Internal Medicine 01/24/2021-Current PHONE: Unknown JEROMY HERNANDES Internal Medicine: Pulmonary Disease 10/18/2018-Current PHONE: Unknown Ananda has no Care Guidelines for this patient. Care History Medical/Surgical 11/04/2021 [facility] \T\nbsp; Care Recommendation: \T\nbsp;\T\nbsp;\T\nbsp;\T\nbsp;\T\nbsp;\T\nbsp; \T\nbsp;\T\nbsp; PLEASE REVIEW MESHAP - ANANDA \T\nbsp;\T\nbsp;\T\nbsp;\T\nbsp;\T\ nbsp;\T\nbsp;\T\nbsp;\T\nbsp; USE EXTREME CAUTION IN GIVING NARCOTICS. \T\ nbsp;\T\nbsp;\T\nbsp;\T\nbsp;\T\nbsp;\T\nbsp;\T\nbsp;\T\nbsp; Avoid Discharge Narcotic prescriptions if at all possible. Physician discretion. 11/03/2021 [facility] - PATIENT WAS REFERRED TO [facility] 12/21/20.NEXT APT WITH THE PAIN CLINIC WILL BE ON 03/06/21 AND THEN THE PAIN CONTRACT WILL BE ESTABLISHED. - PATIENT HAS TWO PRIMARY CARE PHYSICIANS- DR GONZALEZ AND DR FELICIANO AT [facility]. PLEASE CONTACT [facility] BEFORE PRESCRIBING PAIN MEDICATION. PROVIDER DISCRETION. 10/14/2021 [facility] Follow up with Dr. Gonzalez on 10/24/2021. E.D. VISIT COUNT (12 MO.) [address] [facility] [place] TOTAL 15 NOTE: Visits indicate total known visits. 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 - Heart failure, unspecified - Chronic obstructive pulmonary disease, unspecified 11/01/2021 13:04 [facility] [place] TYPE: Emergency COMPLAINT: - PAIN IN LEGS DIAGNOSES: - Pure hypercholesterolemia, unspecified - penitentiary (current) use of aspirin - Other 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 (current) drug therapy - [...] heart disease with heart failure - Other 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 (current) drug therapy - COVID-19 - Heart failure, unspecified - Personal history of nicotine dependence - Gout, unspecified - Chronic obstructive pulmonary disease, unspecified - penitentiary (current) use of aspirin 08/19/2021 09:26 [facility] [place] TYPE: Emergency COMPLAINT: - WEAKNESS DIAGNOSES: - Personal history of nicotine dependence - Heart failure, unspecified - Weakness - Old myocardial infarction - Gout, unspecified - Chronic obstructive pulmonary disease, unspecified - Hypertensive heart disease with heart failure - penitentiary (current) use of aspirin - Other 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 (current) drug therapy 08/01/2021 03:30 [facility] TYPE: Emergency COMPLAINT: - DIFFICULTY BREATHING DIAGNOSES: - penitentiary (current) use of aspirin - Shortness of breath - Personal history of nicotine dependence - Contact with and (suspected) exposure to COVID-19 - Chronic obstructive pulmonary disease, unspecified - Gout, unspecified - Old myocardial infarction - Heart failure, unspecified - Non-ST elevation (NSTEMI) myocardial infarction - Pure hypercholesterolemia, unspecified - Hypertensive heart disease with heart failure - Other 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 (current) drug therapy 07/21/2021 07:03 [facility] TYPE: Emergency COMPLAINT: - DIFFICULTY BREATHING DIAGNOSES: - 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 - Shortness of breath - Presence of coronary angioplasty implant and graft - Presence of automatic (implantable) cardiac defibrillator - Personal history of nicotine dependence - Hypertensive heart disease with heart failure - Heart failure, unspecified - Old myocardial infarction - Pure hypercholesterolemia, unspecified - 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 - Acquired absence of [...] heart disease with heart failure - Other 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 (current) drug therapy - Heart failure, unspecified - 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 - Gout, unspecified - Personal history of nicotine dependence - Old myocardial infarction 04/13/2021 10:12 [facility] TYPE: Emergency COMPLAINT: - LEFT ARM PAIN DIAGNOSES: - Personal history of nicotine dependence - Cellulitis of left upper limb - Heart failure, unspecified - Chronic obstructive pulmonary disease, unspecified - penitentiary (current) use of aspirin - Other specified soft tissue disorders - Hypertensive heart disease with heart failure - Old myocardial infarction - 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 04/10/2021 11:03 [facility] TYPE: Emergency COMPLAINT: - L HAND SWELLING/PAIN 02/25/2021 08:48 [facility] TYPE: Emergency COMPLAINT: - R ELBOW PAIN DIAGNOSES: - Personal history of nicotine dependence - Old myocardial infarction - 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 - Olecranon bursitis, right elbow - Hypertensive heart disease with heart failure - Other 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 (current) drug therapy - Heart failure, unspecified - Chronic obstructive pulmonary disease, unspecified 02/18/2021 15:11 [facility] TYPE: Emergency COMPLAINT: - R ELBOW PAIN/SWELLING/ NON INJURY DIAGNOSES: - Other 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 (current) drug therapy - Hypertensive heart disease with heart failure - Personal history of nicotine dependence - Pain in right elbow - Olecranon bursitis, right elbow - Heart failure, unspecified - Chronic obstructive pulmonary disease, unspecified - 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 - Old myocardial infarction 01/31/2021 07:59 [facility] TYPE: Emergency COMPLAINT: - SOB DIAGNOSES: - Heart failure, unspecified - penitentiary (current) use of aspirin - Other 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 (current) drug therapy - Chronic obstructive pulmonary disease, unspecified - Shortness of breath - Old myocardial infarction - Hypertensive heart disease with heart failure INPATIENT VISIT TRACKING (12 MO.) 08/01/2021 11:12 [facility] [place] TYPE: Internal Medicine DIAGNOSES: - elevated troponin [...] disease - Personal history of nicotine dependence [email or web address]
--- NOTE | 2022-01-29 05:30 | NUR ---
BEDSIDE REPORT RECEIVED FROM ALFONSO BLAKE IN ED. PT IN ED STRETCHER AWAKE AND ALERT ON THE BIPAP. PT PLACED ON 5L O2 NC FOR TRANSFER TO THE CCU. PT BROUGHT TO CCU ROOM 127 WITH HIS BELONGINGS. PT ABLE TO STAND AND TAKE A FEW STEPS FROM THE ED STRETCHER TO THE CCU BED. PT NOW SITTING AT THE BEDSIDE ON 6L O2 NC TO MAINTAIN SPO2 ABOVE 90%. PT VITALS TAKEN, TEMPERATURE OF 96 AXILLARY OBTAINED. PT DENIES FEELING COLD AT THIS TIME. PT ADMISSION AND HISTORY COMPLETED AND PT ASSESSED. PT ALERT AND ORIENTED X 4, HEART TONES REGULAR IN RYTHM, LUNGS CLEAR IN UPPER LOBES WITH FINE CRACKLES IN THE RIGHT LOWER BASE AND CRACKLES IN THE LEFT LOWER BASE. PT REPORTS MILD SHORTNESS OF BREATH AND WAS PLACED ON THE BIPAP AT 40% FIO2 18/10. PULSES STRONG, BRISK CAPILLARY REFILL. 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 EDEMA PRESENT IN LOWER LEGS BILATERALLY +1. AFTER ASSESSMENT PT USED THE URINAL AND VOIDED 400ML CLEAR YELLOW URINE. PT PROVIDED WITH ICE CHIPS AT THIS TIME AND WARM BLANKETS. PT REPORTS NO FURTHER NEEDS AT THIS TIME AND REMAINS ON THE BIPAP SITTING UP IN BED. CALL LIGHT IN REACH, BED IN LOWEST POSITION, WILL CONTINUE PLAN OF CARE.
--- NOTE | 2022-01-29 06:35 | NUR ---
PT SLEEPING IN BED ON THE BIPAP. PT AWOKE EASILY AND REQUESTED TO TAKE A BREAK FROM THE BIPAP. PT PLACED ON 6L O2 NC, SPO2 MAINTAINING AT 91%. PT PROVIDED WITH ICEWATER AT THIS TIME. PT REQUESTED A COFFEE WHICH WAS PROVIDED. PT REPORTS NO FURTHER NEEDS AT THIS TIME, WILL CONTINUE PLAN OF CARE.
--- NOTE | 2022-01-29 07:30 | NUR ---
REPORT RECIEVED. PATIENT SITTING AT BEDSIDE READY TO EAT BREAKFAST, VERY TALKATIVE. O2 NC AT 6L, OFF BIPAP.
--- NOTE | 2022-01-29 09:55 | NUR ---
NO CHANGES. SITTING AT BEDSIDE. CONTINUES ON O2 AT 4 L NC.
--- NOTE | 2022-01-29 10:10 | NUR ---
DR GONZALEZ HERE TO SEE PATIENT.
--- NOTE | 2022-01-29 11:10 | NUR ---
ROUTINE MEDICATIONS, ALONG WITH LASIX 80 MG IV AND NORCO 10 MG PO FOR NECK PAIN.
--- NOTE | 2022-01-29 11:25 | NUR ---
SITTING UP AT BEDSIDE TO EAT LUNCH. 2 GM NA DIET WITH FLUID RESTRICTION OF 1600 ML ORDERED. PATIENT AWARE.
--- NOTE | 2022-01-29 12:00 | NUR ---
TOOK LUNCH WELL. METAL CASTER HERE TO DO ECHO AT BEDSIDE.
--- NOTE | 2022-01-29 12:15 | NUR ---
BIPAP APPLIED PATIENT LAYING DOEN ON LEFT SIDE FOR ECHO. O2 SAT TO HIGH 80'S. PATIENT IS IN ROOM.
--- NOTE | 2022-01-29 14:00 | NUR ---
SITTING AT BEDSIDE, LOOKING AT PHONE. DENIES RESP DISTRESS.
--- NOTE | 2022-01-29 15:00 | NUR ---
DR. GONZALEZ UPDATED ON PATIENT STATUS. ORDERS RECIEVED TO TRANSFER TO MED-SURG. SUPERVISIOR AWARE.
--- NOTE | 2022-01-29 16:00 | NUR ---
REPORT TO MED-SUR[facility].
--- NOTE | 2022-01-29 16:10 | NUR ---
TO [facility] AMBULATORY. TOLERATED AMBULATION WELL. ARRIVED TO ROOM 114 FROM 127 W/O PROBLEMS. DENIES FEELING SHORT OF BREATH.
--- NOTE | 2022-01-29 16:15 | NUR ---
MARIELLE. REPORT FROM MAN RN/CCU, PT. THEN AMBULATED FROM CCU TO MS RM 114. NO DIFFICULTY BREATHING, HE WAS ORIENTED TO HIS ROOM AND PLACED ON 4 L NC, PLACED HUMIDIFIER ON O2. NO NEEDS AT THIS TIME. WHICH IS HIS BASELINE AT HOME. HE USES BIPAP AT NIGHT. A 7 O X 4, DENIES PAIN AT THIS TIME. LUNGS CLEAR, ALL FONTANA POSTERIOR/ANTERIOR. BNP ELEVATED IN ER, DIURESED WITH LASIX IV, EF 25-30% PER ECHO. 1-2+ EDEMA BILATERAL FEET/ANKLES.
--- NOTE | 2022-01-29 17:41 | NUR ---
PT AWAKE IN ROOM SITTING ON EDGE OF BED. CALL LIGHT IN REACH. PT WAITING ON TO COME IN AND VISIT. NO FURTHER NEEDS AT THIS TIME.
--- NOTE | 2022-01-29 19:54 | NUR ---
PT. CALLED NURSES STATION REQUESTING WALKING ASSISTANCE. PT. WAS SUPERVISED WALKING FOR 15 MINUTES. CALL LIGHT LEFT WITHIN REACH. NO OTHER IMMEDIATE NEEDS AT THIS TIME.
--- NOTE | 2022-01-29 20:42 | NUR ---
WALKED HALLWAYS AT 1930 TWICE AROUND NURSING STATION TO ICEU AND BACK AROUND, TOLERATED WELL, USED CANE, AND SBA, BACK TO ROOM, CHRONIC O2 4L NC, LUNGS CLEAR BILAT,NO C/O COUGH OR SOB WITH EXERTION. UP TO BR, VOIDS SMALL AMOUNTS. TRACE EDEMA TO HANDS, AND LE AT ANKLES BILAT, L MORE THAN RIGHT. PT AWARE TO ELEVATED LEGS STATED HIMSELF. TOLERATING FLUID RESTRICTION WELL. COOPERATIVE WITH ASSESSMENT SL TO LAC.
--- NOTE | 2022-01-30 00:05 | NUR ---
In bed, eyes closed, on O2, legs elevated, call light at hands reach
--- NOTE | 2022-01-30 02:40 | NUR ---
c/o 03/16 pain, medicated with norco 1 ab, using cpap, tolerating well, turns and repositins in bed, tolerating fluid restriction, voided qs yellow urine, using urinal and standing edge of bed, call light at hands reach
--- NOTE | 2022-01-30 04:00 | NUR ---
Pt was on 4L at begining of shift. was placed on CPAP and its still using cpap, has slept very well since then. was medicated with 1 [place] tab per neck and back pain, effective. no sob noted with exertion, walked hallways with 4lnc and sba/cane, tolerated very well. voiding small amounts of yellow urine. tolerating fluid restriction. aware of am daily weight, no further requests, cooperative. uses call light, edema to LE, legs elevated
--- NOTE | 2022-01-30 05:09 | NUR ---
Pt took cpap off, was on room air, satting 100%. wanted to go back to his chronic use of 4L NC, was 100%, decreaed to 3LO after 5 mintues was 98%, decreased to 2L NC, stook edge of bed and urinated, sats 97-98%, no sob. Decreaed to 1LNC, stood up to be weighted standing scale 93.8KG weight. after 10 minutes he was satting 94-97%, no sob noted with exertion. call light at hands reach. cooperative
--- NOTE | 2022-01-30 06:21 | NUR ---
PT BACK ON 4L O2 HIS REQUESTS, O2 SATS 100%. PT DECLINED TO HAVE O2 DECREASED. UP IN CHAIR. WATCHING TV. NO FURTHER C/O PAIN
--- NOTE | 2022-01-30 07:43 | NUR ---
MARIELLE. BEDSIDE REPORT FROM NIGHT RN, ASSUMED ALL CARE OF PT., HE IS SITTING ON THE EDGE OF THE BED AND ASKING WHAT HIS OXYGEN IS SET AT. STATES HE ALWAYS HAS IT SET ON 4 L AT HOME NO MATTER HOW HE FEELS OR WHAT THE PULSE OX SAYS. HE BECOMES VERY UPSET WHEN ANYONE ADJUSTS HIS 02 ANYWHERE AWAY FROM THE 4L NC.
--- NOTE | 2022-01-30 10:07 | NUR ---
RT PLACED PT. ON BIPAP FOR COMFORT, PT. DOES KNOW HIS BODY WELL AND C/O SOB WHEN AMBULATED TO BR IN THE NIGHT, HE HAD HIS LEGS ELEVATED IN THE NIGHT BUT COULD NOT GET COMFORTABLE. ALSO STATES HE WOULD BE COMPLIANT WITH BIPAP/CPAP AT HOME AT NIGHT HE FEELS THIS IMPROVES HIS BREATHING FOR THE NEXT DAY. REMAINS ON 4L 02 NC AT ALL TIMES AT HOME. RT DID TEACHING AND RN REINFORCED NOT TO ATTEMPT WEANING O2 D/T HEART/KIDNEY FUNCTION. RESTING IN BED WITH EYES CLOSED RESPIRATIONS EVEN.
--- NOTE | 2022-01-30 11:40 | NUR ---
Spoke with pt. He plans on dc this afternoon. He request I call the courts as he missed a court appearance today. Let him know he will need to do this. He states his already tried to call and the court let her know he needs to call in. He again asks me or a nurse to call. Let him know they will not accept our infor, he will need to call as they are very strict about court dates. Asked if he needs help dialing and he denies.
--- NOTE | 2022-01-30 12:34 | NUR ---
PT AMBULATING IN AN WITH PHILIP FRY. PT FEELING BETTER, WORKING TO IMPROVE. GAVE ENCOURAGEMENT AND BLESSING.
[2022-01-30] MEDS ORDERED: ULTRAM50 MG PO (13:52)
[2022-01-30] MEDS ORDERED: TYLOPHEN500 MG PO (13:54)
--- NOTE | 2022-01-31 13:42 | EKG ---
[facility] [address] [place] [address] Signed Atrial-sensed ventricular-paced rhythm Biventricular pacemaker detected Abnormal ECG When compared with ECG of 19-AUG-2021 10:12, premature ventricular complexes are no longer present Vent. rate has increased BY 41 BPM Confirmed by KIMMIE GONZALEZ MD ([id number]) on 01/31/2022 1:42:30 PM Electronically Signed By: KIMMIE GONZALEZ MD 01/31/22 1342 PATIENT NAME: RON MCKEON Electrocardiogram DATE OF : 53 PHYSICIAN: KIMMIE GONZALEZ MD REPORT #: [id number] REPORT IS CONFIDENTIAL AND NOT TO BE RELEASED WITHOUT AUTHORIZATION
== END 2022-01-30 15:37 | disposition home or self-care (01) ==
LOC: ED 01:34 → MS 01:36 → CCU 01:36 → MS 15:57
PROVIDERS: ADMIT Internal Medicine; ATTEND Internal Medicine
DX: I13.0 Hypertensive heart and chronic kidney disease with heart failure and stage 1 through stage 4 chronic kidney disease, or unspecified chronic kidney disease (principal); I50.23 Acute on chronic systolic (congestive) heart failure; I25.2 Old myocardial infarction; J44.9 Chronic obstructive pulmonary disease, unspecified; E78.00 Pure hypercholesterolemia, unspecified; J96.00 Acute respiratory failure, unspecified whether with hypoxia or hypercapnia; N18.4 Chronic kidney disease, stage 4 (severe); D63.1 Anemia in chronic kidney disease; E03.9 Hypothyroidism, unspecified; E78.5 Hyperlipidemia, unspecified; G89.4 Chronic pain syndrome; M25.50 Pain in unspecified joint; I25.10 Atherosclerotic heart disease of native coronary artery without angina pectoris; Z87.891 Personal history of nicotine dependence; Z79.82 Long term (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; Z20.822 Contact with and (suspected) exposure to COVID-19; Z95.5 Presence of coronary angioplasty implant and graft
CPT/HCPCS: 36415; 71045; 80048; 80053; 83036; 83605; 83735; 83880; 84484; 85025; 85610; 85730; 87502; 93005; 93010; 93306; 94660; 94760; 96372; 96376; A9270; G0378; J1650; J1940; J2930; U0003

== ENCOUNTER 2022-02-02 13:07 | Emergency (ER) | payer OTHER ==
[~2022-02-02] VITALS: Ht 175.3 cm; Wt 93.0 kg
--- OUTSIDE RECORDS SUMMARY | 2022-02-02 13:10 | XMS ---
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 Internal Medicine 01/24/2021-Current PHONE: Unknown JEROMY HERNANDES Internal Medicine: Pulmonary Disease 10/18/2018-Current PHONE: Unknown Ananda has no Care Guidelines for this patient. Care History Medical/Surgical 11/04/2021 [facility] \T\nbsp; Care Recommendation: \T\nbsp;\T\nbsp;\T\nbsp;\T\nbsp;\T\nbsp;\T\nbsp; \T\nbsp;\T\nbsp; PLEASE REVIEW MESHAP - ANANDA \T\nbsp;\T\nbsp;\T\nbsp;\T\nbsp;\T\ nbsp;\T\nbsp;\T\nbsp;\T\nbsp; USE EXTREME CAUTION IN GIVING NARCOTICS. \T\ nbsp;\T\nbsp;\T\nbsp;\T\nbsp;\T\nbsp;\T\nbsp;\T\nbsp;\T\nbsp; Avoid Discharge Narcotic prescriptions if at all possible. Physician discretion. 11/03/2021 [facility] - PATIENT WAS REFERRED TO [facility] 12/21/20.NEXT APT WITH THE PAIN CLINIC WILL BE ON 03/06/21 AND THEN THE PAIN CONTRACT WILL BE ESTABLISHED. - PATIENT HAS TWO PRIMARY CARE PHYSICIANS- DR GONZALEZ AND DR FELICIANO AT [facility]. PLEASE CONTACT [facility] BEFORE PRESCRIBING PAIN MEDICATION. PROVIDER DISCRETION. 10/14/2021 [facility] Follow up with Dr. Gonzalez on 10/24/2021. E.D. VISIT COUNT (12 MO.) [address] [facility] TOTAL 15 NOTE: Visits indicate total known visits. 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 - Other care home (current) drug therapy - Chronic obstructive pulmonary disease, unspecified - Old myocardial infarction 12/27/2021 16:47 [facility] [place] TYPE: Emergency COMPLAINT: - CONGESTION DIAGNOSES: - Gout, unspecified - Hypertensive heart disease with heart failure - [facility] (current) use of aspirin - Acute sinusitis, unspecified - Primary osteoarthritis, other specified site - Personal history of nicotine dependence - Old myocardial infarction - Pure hypercholesterolemia, unspecified - Other intermodal 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 service (current) 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 therapy - Heart failure, unspecified - Chronic obstructive pulmonary disease, unspecified 11/01/2021 13:04 [facility] [place] TYPE: Emergency COMPLAINT: - PAIN IN LEGS DIAGNOSES: - Pure hypercholesterolemia, unspecified - [facility] (current) use of aspirin - Other care home (current) drug therapy - Old myocardial infarction [...] Other care home (current) drug therapy - COVID-19 - Heart failure, unspecified - Personal history of nicotine dependence - Gout, unspecified - Chronic obstructive pulmonary disease, unspecified - [facility] (current) use of aspirin 08/19/2021 09:26 [facility] [place] TYPE: Emergency COMPLAINT: - WEAKNESS DIAGNOSES: - Personal history of nicotine dependence - Heart failure, unspecified - Weakness - Old myocardial infarction - Gout, unspecified - Chronic obstructive pulmonary disease, unspecified - Hypertensive heart disease with heart failure - [facility] (current) use of aspirin - Other intermodal customer service (current) drug therapy 08/01/2021 03:30 [facility] [place] TYPE: Emergency COMPLAINT: - DIFFICULTY BREATHING DIAGNOSES: - intermodal customer service (current) use of aspirin - Shortness of breath - Personal history of nicotine dependence - Contact with and (suspected) exposure to COVID-19 - Chronic obstructive pulmonary disease, unspecified - Gout, unspecified - Old myocardial infarction - Heart failure, unspecified - Non-ST elevation (NSTEMI) myocardial infarction - Pure hypercholesterolemia, unspecified - Hypertensive heart disease with heart failure - Other care home (current) drug therapy 07/21/2021 07:03 [facility] [place] TYPE: Emergency COMPLAINT: - DIFFICULTY BREATHING DIAGNOSES: - 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 service (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 - Shortness of breath - Presence of coronary angioplasty implant and graft - Presence of automatic (implantable) cardiac defibrillator - Personal history of nicotine dependence - Hypertensive heart disease with heart failure - Heart failure, unspecified - Old myocardial infarction - Pure hypercholesterolemia, unspecified - Other care home (current) drug therapy - Acquired absence of [...] Other care home (current) drug therapy - Heart failure, unspecified - 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 service (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 - Gout, unspecified - Personal history of nicotine dependence - Old myocardial infarction 04/13/2021 10:12 [facility] [place] TYPE: Emergency COMPLAINT: - LEFT ARM PAIN DIAGNOSES: - Personal history of nicotine dependence - Cellulitis of left upper limb - Heart failure, unspecified - Chronic obstructive pulmonary disease, unspecified - [facility] (current) use of aspirin - Other specified soft tissue disorders - Hypertensive heart disease with heart failure - Old myocardial infarction - Other intermodal customer service (current) 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 therapy 04/10/2021 11:03 [facility] [place] TYPE: Emergency COMPLAINT: - L HAND SWELLING/PAIN 02/25/2021 08:48 [facility] TYPE: Emergency COMPLAINT: - R ELBOW PAIN DIAGNOSES: - Personal history of nicotine dependence - Old myocardial infarction - 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 customer service (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 - Olecranon bursitis, right elbow - Hypertensive heart disease with heart failure - Other intermodal customer service (current) drug therapy - Heart failure, unspecified - Chronic obstructive pulmonary disease, unspecified 02/18/2021 15:11 [facility] TYPE: Emergency COMPLAINT: - R ELBOW PAIN/SWELLING/ NON INJURY DIAGNOSES: - Other care home (current) drug therapy - Hypertensive heart disease with heart failure - Personal history of nicotine dependence - Pain in right elbow - Olecranon bursitis, right elbow - Heart failure, unspecified - Chronic obstructive pulmonary disease, unspecified - intermodal customer service (current) use of aspirin - Old myocardial infarction INPATIENT VISIT TRACKING (12 MO.) 01/29/2022 01:36 [facility] [place] TYPE: Observation COMPLAINT: - RESPIRATORY FAILURE,CHF 08/01/2021 11:12 [facility] TYPE: Internal Medicine DIAGNOSES: - elevated troponin [...] disease - Personal history of nicotine dependence [email or web address]
== END 2022-02-02 15:30 | disposition home or self-care (01) ==
LOC: ED 13:07
DX: I11.0 Hypertensive heart disease with heart failure (principal); I50.9 Heart failure, unspecified; E78.00 Pure hypercholesterolemia, unspecified; I25.2 Old myocardial infarction; J44.9 Chronic obstructive pulmonary disease, unspecified; M10.9 Gout, unspecified; Z87.891 Personal history of nicotine dependence; Z79.899 Other long term (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; Z79.82 Long term (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
CPT/HCPCS: 36415; 80048; 83880; 84484; 85025; 93005; 93010; 94640; 99285-25

== ENCOUNTER 2022-02-13 03:56 | Inpatient (IN) | payer OTHER ==
[~2022-02-13] VITALS: Ht 175.3 cm; Wt 92.1 kg
--- OUTSIDE RECORDS SUMMARY | 2022-02-13 03:59 | XMS ---
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 18 months Most recent security events: Elopement at [facility] 04/10/2021 11:03 - Other Details: PATIENT LWBS CRITERIA MET - 6 ED Visits in 6 Months - [facility] - Has Care Guidelines - PDMP - [facility] - 2 Visits in 30 Days - Group Notification CARE PROVIDERS EDWARD FELICIANO [facility] 04/04/2019-Current PHONE: Unknown LUCY HERNANDEZ [facility] 06/22/2018-Current PHONE: Unknown [facility] Internal Medicine 01/24/2021-Current PHONE: Unknown JEROMY HERNANDES Internal Medicine: Pulmonary Disease 10/18/2018-Current PHONE: Unknown Ananda has no Care Guidelines for this patient. Care History Medical/Surgical 11/04/2021 [facility] \T\nbsp; Care Recommendation: \T\nbsp;\T\nbsp;\T\nbsp;\T\nbsp;\T\nbsp;\T\nbsp; \T\nbsp;\T\nbsp; PLEASE REVIEW MESHAP - ANANDA \T\nbsp;\T\nbsp;\T\nbsp;\T\nbsp;\T\ nbsp;\T\nbsp;\T\nbsp;\T\nbsp; USE EXTREME CAUTION IN GIVING NARCOTICS. \T\ nbsp;\T\nbsp;\T\nbsp;\T\nbsp;\T\nbsp;\T\nbsp;\T\nbsp;\T\nbsp; Avoid Discharge Narcotic prescriptions if at all possible. Physician discretion. 11/03/2021 [facility] - PATIENT WAS REFERRED TO [facility] 12/21/20.NEXT APT WITH THE PAIN CLINIC WILL BE ON 03/06/21 AND THEN THE PAIN CONTRACT WILL BE ESTABLISHED. - PATIENT HAS TWO PRIMARY CARE PHYSICIANS- DR GONZALEZ AND DR FELICIANO AT [facility]. PLEASE CONTACT [facility] BEFORE PRESCRIBING PAIN MEDICATION. PROVIDER DISCRETION. 10/14/2021 [facility] Follow up with Dr. Gonzalez on 10/24/2021. E.D. VISIT COUNT (12 MO.) [address] [facility] TOTAL 16 NOTE: Visits indicate total known visits. 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 - Heart failure, unspecified - Pure hypercholesterolemia, unspecified - Chronic obstructive pulmonary disease, unspecified - Gout, unspecified - Chest pain, unspecified - Dyspnea, unspecified - Hypertensive heart disease with heart failure - Personal history of nicotine dependence - Old myocardial infarction - Other jail (current) drug therapy 01/29/2022 01:35 [facility] TYPE: Emergency COMPLAINT: - SOB 01/26/2022 09:36 [facility] TYPE: Emergency COMPLAINT: - DAYANARA DIAGNOSES: - Dyspnea, unspecified - Heart failure, unspecified - Gout, unspecified - Personal history of nicotine dependence - Hypertensive heart disease with heart failure - FDC (current) use of aspirin - Other jail (current) drug therapy - Chronic obstructive pulmonary disease, unspecified - Old myocardial infarction 12/27/2021 16:47 [facility] TYPE: Emergency COMPLAINT: - CONGESTION DIAGNOSES: - Gout, unspecified - Hypertensive heart disease with heart failure - FDC (current) use of aspirin - Acute sinusitis, unspecified - Primary osteoarthritis, other specified site - Personal history of nicotine dependence - Old myocardial infarction - Pure hypercholesterolemia, unspecified - Other joint terminal attack controller (current) drug therapy - Heart failure, unspecified - Chronic obstructive pulmonary disease, unspecified 11/01/2021 13:04 [facility] TYPE: Emergency COMPLAINT: - PAIN IN LEGS DIAGNOSES: - Pure hypercholesterolemia, unspecified - 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 - Other joint terminal attack controller (current) drug therapy - Old myocardial infarction [...] heart disease with heart failure - Other joint terminal attack controller (current) drug therapy - COVID-19 - Heart failure, unspecified - Personal history of nicotine dependence - Gout, unspecified - Chronic obstructive pulmonary disease, unspecified - FDC (current) use of aspirin 08/19/2021 09:26 [facility] TYPE: Emergency COMPLAINT: - WEAKNESS DIAGNOSES: - Personal history of nicotine dependence - Heart failure, unspecified - Weakness - Old myocardial infarction - Gout, unspecified - Chronic obstructive pulmonary disease, unspecified - Hypertensive heart disease with heart failure - FDC (current) use of aspirin - Other jail (current) drug therapy 08/01/2021 03:30 [facility] [...] heart disease with heart failure - Other joint terminal attack controller (current) drug therapy 07/21/2021 07:[address] [facility] [place] TYPE: Emergency COMPLAINT: - DIFFICULTY BREATHING DIAGNOSES: - FDC (current) use of aspirin - Shortness of breath - Presence of coronary angioplasty implant and graft - Presence of automatic (implantable) cardiac defibrillator - Personal history of nicotine dependence - Hypertensive heart disease with heart failure - Heart failure, unspecified - Old myocardial infarction - Pure hypercholesterolemia, unspecified - Other joint terminal attack controller (current) drug therapy - Acquired absence of [...] heart disease with heart failure - Other joint terminal attack controller (current) drug therapy - Heart failure, unspecified - FDC (current) use of aspirin - Gout, unspecified - Personal history of nicotine dependence - Old myocardial infarction 04/13/2021 10:12 [facility] TYPE: Emergency COMPLAINT: - LEFT ARM PAIN DIAGNOSES: - Personal history of nicotine dependence - Cellulitis of left upper limb - Heart failure, unspecified - Chronic obstructive pulmonary disease, unspecified - 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 - Other specified soft tissue disorders - Hypertensive heart disease with heart failure - Old myocardial infarction - Other jail (current) drug therapy 04/10/2021 11:03 [facility] TYPE: Emergency COMPLAINT: - L HAND SWELLING/PAIN 02/25/2021 08:48 [facility] TYPE: Emergency COMPLAINT: - R ELBOW PAIN DIAGNOSES: - Personal history of nicotine dependence - Old myocardial infarction - FDC (current) use of aspirin - Olecranon bursitis, right elbow - Hypertensive heart disease with heart failure - Other jail (current) drug therapy - Heart failure, unspecified - Chronic obstructive pulmonary disease, unspecified 02/18/2021 15:11 [facility] TYPE: Emergency COMPLAINT: - R ELBOW PAIN/SWELLING/ NON INJURY DIAGNOSES: - Other jail (current) drug therapy - Hypertensive heart disease with heart failure - Personal history of nicotine dependence - Pain in right elbow - Olecranon bursitis, right elbow - Heart failure, unspecified - Chronic obstructive pulmonary disease, unspecified - FDC (current) use of aspirin - Old myocardial infarction INPATIENT VISIT TRACKING (12 MO.) 01/29/2022 01:36 [facility] TYPE: Observation COMPLAINT: - RESPIRATORY FAILURE,CHF DIAGNOSES: - Chronic pain syndrome - Chronic kidney disease, stage 4 (severe) - Personal history of nicotine dependence - Acute on chronic systolic (congestive) heart failure - Old myocardial infarction - 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 - Atherosclerotic heart disease of [place] coronary artery without angina pectoris - Anemia in chronic kidney disease - Hypothyroidism, unspecified - Chronic obstructive pulmonary disease, unspecified - Pain in unspecified joint - Presence of coronary angioplasty implant and graft - Hypertensive heart and chronic kidney disease with heart failure and stage 1 through stage 4 chronic kidney disease, or unspecified chronic kidney disease - Pure hypercholesterolemia, unspecified - Contact with and (suspected) exposure to COVID-19 - Shortness of breath - Acute respiratory failure, unspecified whether with hypoxia or hypercapnia - Hyperlipidemia, unspecified [facility] DIAGNOSES: - elevated troponin - Chronic systolic (congestive) heart failure - Ischemic cardiomyopathy 06/20/2021 08:[address] [facility] [place] TYPE: Observation COMPLAINT: - CONGESTIVE HEART [...] disease - Personal history of nicotine dependence [email or web address]
== END 2022-02-13 18:15 | disposition home or self-care (01) | DRG 291 ==
LOC: ED 03:56 → CCU 06:17
PROVIDERS: ADMIT Internal Medicine; ATTEND Internal Medicine
DX: I13.0 Hypertensive heart and chronic kidney disease with heart failure and stage 1 through stage 4 chronic kidney disease, or unspecified chronic kidney disease (principal); I50.23 Acute on chronic systolic (congestive) heart failure; N18.4 Chronic kidney disease, stage 4 (severe); N17.9 Acute kidney failure, unspecified; I25.10 Atherosclerotic heart disease of native coronary artery without angina pectoris; Z20.822 Contact with and (suspected) exposure to COVID-19; R73.03 Prediabetes; D63.1 Anemia in chronic kidney disease; I25.5 Ischemic cardiomyopathy; E03.8 Other specified hypothyroidism; E78.5 Hyperlipidemia, unspecified; E79.0 Hyperuricemia without signs of inflammatory arthritis and tophaceous disease; M25.50 Pain in unspecified joint; G89.4 Chronic pain syndrome; E78.00 Pure hypercholesterolemia, unspecified; M10.9 Gout, unspecified; J44.9 Chronic obstructive pulmonary disease, unspecified; Z95.5 Presence of coronary angioplasty implant and graft; I25.2 Old myocardial infarction; Z90.49 Acquired absence of other specified parts of digestive tract; Z98.890 Other specified postprocedural states; Z79.02 Long term (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 of antithrombotics/antiplatelets; Z79.82 Long term (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; Z79.899 Other long term (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
CPT/HCPCS: 36415; 71045; 80048; 83880; 85025; 87502; 94660; 96374; 99285-25; A9270; C9803; J1940; U0003

== ENCOUNTER 2022-02-27 09:10 | Emergency (ER) | payer OTHER ==
[~2022-02-27] VITALS: Ht 175.3 cm; Wt 92.1 kg
--- NOTE | ~2022-02-27 | EKG ---
[facility] [address] [facility] [facility] [place], [place] [address] Draft EK completed, results pending confirmation PATIENT NAME: MIKERON Electrocardiogram DATE OF : 53 PHYSICIAN: PRELIMINARY REPORT #: [id number] REPORT IS CONFIDENTIAL AND NOT TO BE RELEASED WITHOUT AUTHORIZATION
--- OUTSIDE RECORDS SUMMARY | 2022-02-27 09:12 | XMS ---
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 Internal Medicine 01/24/2021-Current PHONE: Unknown JEROMY HERNANDES Internal Medicine: Pulmonary Disease 10/18/2018-Current PHONE: Unknown Ananda has no Care Guidelines for this patient. Care History Medical/Surgical 11/04/2021 [facility] \T\nbsp; Care Recommendation: \T\nbsp;\T\nbsp;\T\nbsp;\T\nbsp;\T\nbsp;\T\nbsp; \T\nbsp;\T\nbsp; PLEASE REVIEW MESHAP - ANANDA \T\nbsp;\T\nbsp;\T\nbsp;\T\nbsp;\T\ nbsp;\T\nbsp;\T\nbsp;\T\nbsp; USE EXTREME CAUTION IN GIVING NARCOTICS. \T\ nbsp;\T\nbsp;\T\nbsp;\T\nbsp;\T\nbsp;\T\nbsp;\T\nbsp;\T\nbsp; Avoid Discharge Narcotic prescriptions if at all possible. Physician discretion. 11/03/2021 [facility] - PATIENT WAS REFERRED TO [facility] 12/21/20.NEXT APT WITH THE PAIN CLINIC WILL BE ON 03/06/21 AND THEN THE PAIN CONTRACT WILL BE ESTABLISHED. - PATIENT HAS TWO PRIMARY CARE PHYSICIANS- DR GONZALEZ AND DR FELICIANO AT [facility]. PLEASE CONTACT [facility] BEFORE PRESCRIBING PAIN MEDICATION. PROVIDER DISCRETION. 10/14/2021 [facility] Follow up with Dr. Gonzalez on 10/24/2021. E.D. VISIT COUNT (12 MO.) [address] [facility] TOTAL 15 NOTE: Visits indicate total known visits. ED/UCC VISIT TRACKING (12 MO.) 02/27/2022 09:11 [facility] TYPE: Emergency COMPLAINT: - SOB 02/13/2022 03:57 [facility] TYPE: Emergency COMPLAINT: - SOB 02/02/2022 13:07 [facility] TYPE: Emergency COMPLAINT: - DIFFICULTY BREATHING, CHEST PAIN DIAGNOSES: - meterman (current) use of aspirin - Heart failure, unspecified - Pure hypercholesterolemia, unspecified - Chronic obstructive pulmonary disease, unspecified - Gout, unspecified - Chest pain, unspecified - Dyspnea, unspecified - Hypertensive heart disease with heart failure - Personal history of nicotine dependence - Old myocardial infarction - Other [facility] (current) drug therapy 01/29/2022 01:35 [facility] TYPE: Emergency COMPLAINT: - SOB 01/26/2022 09:36 [facility] TYPE: Emergency COMPLAINT: - DAYANARA DIAGNOSES: - Dyspnea, unspecified - Heart failure, unspecified - Gout, unspecified - Personal history of nicotine dependence - Hypertensive heart disease with heart failure - meterman (current) use of aspirin - Other 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 card tender (current) drug therapy - Chronic obstructive pulmonary disease, unspecified - Old myocardial infarction 12/27/2021 16:47 [facility] TYPE: Emergency COMPLAINT: - CONGESTION DIAGNOSES: - Gout, unspecified - Hypertensive heart disease with heart failure - FPC (current) use of aspirin - Acute sinusitis, unspecified - Primary osteoarthritis, other specified site - Personal history of nicotine dependence - Old myocardial infarction - Pure hypercholesterolemia, unspecified - Other 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 card tender (current) drug therapy - Heart failure, unspecified - Chronic obstructive pulmonary disease, unspecified 11/01/2021 13:04 [facility] TYPE: Emergency COMPLAINT: - PAIN IN LEGS DIAGNOSES: - Pure hypercholesterolemia, unspecified - FPC (current) use of aspirin - Other 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 card tender (current) drug therapy - Old myocardial infarction [...] heart disease with heart failure - Other [facility] (current) drug therapy - COVID-19 - Heart failure, unspecified - Personal history of nicotine dependence - Gout, unspecified - Chronic obstructive pulmonary disease, unspecified - FPC (current) use of aspirin 08/19/2021 09:26 [facility] TYPE: Emergency COMPLAINT: - WEAKNESS DIAGNOSES: - Personal history of nicotine dependence - Heart failure, unspecified - Weakness - Old myocardial infarction - Gout, unspecified - Chronic obstructive pulmonary disease, unspecified - Hypertensive heart disease with heart failure - meterman (current) use of aspirin - Other 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 card tender (current) drug therapy 08/01/2021 03:30 [facility] TYPE: Emergency COMPLAINT: - DIFFICULTY BREATHING DIAGNOSES: - FPC (current) use of aspirin - Shortness of breath - Personal history of nicotine dependence - Contact with and (suspected) exposure to COVID-19 - Chronic obstructive pulmonary disease, unspecified - Gout, unspecified - Old myocardial infarction - Heart failure, unspecified - Non-ST elevation (NSTEMI) myocardial infarction - Pure hypercholesterolemia, unspecified - Hypertensive heart disease with heart failure - Other [facility] (current) drug therapy 07/21/2021 07:03 [facility] TYPE: Emergency COMPLAINT: - DIFFICULTY BREATHING DIAGNOSES: - FPC (current) use of aspirin - Shortness of breath - Presence of coronary angioplasty implant and graft - Presence of automatic (implantable) cardiac defibrillator - Personal history of nicotine dependence - Hypertensive heart disease with heart failure - Heart failure, unspecified - Old myocardial infarction - Pure hypercholesterolemia, unspecified - Other [facility] (current) drug therapy - [...] heart disease with heart failure - Other [facility] (current) drug therapy - Heart failure, unspecified - meterman (current) use of aspirin - Gout, unspecified - Personal history of nicotine dependence - Old myocardial infarction 04/13/2021 10:12 [facility] TYPE: Emergency COMPLAINT: - LEFT ARM PAIN DIAGNOSES: - Personal history of nicotine dependence - Cellulitis of left upper limb - Heart failure, unspecified - Chronic obstructive pulmonary disease, unspecified - meterman (current) use of aspirin - Other specified soft tissue disorders - Hypertensive heart disease with heart failure - Old myocardial infarction - Other [facility] (current) drug therapy 04/10/2021 11:03 [facility] TYPE: Emergency COMPLAINT: - L HAND SWELLING/PAIN INPATIENT VISIT TRACKING (12 MO.) 02/13/2022 06:17 [facility] TYPE: Critical Care COMPLAINT: - CHF EXCERBATION DIAGNOSES: - FPC (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 of antithrombotics/antiplatelets - Other [facility] (current) drug therapy - Hypertensive heart and chronic kidney disease with heart failure and stage 1 through stage 4 chronic kidney disease, or unspecified chronic kidney disease - Chronic pain syndrome - Atherosclerotic heart disease of [place] coronary artery without angina pectoris - Chronic kidney disease, stage 4 (severe) - Anemia in chronic kidney disease - Anemia in chronic kidney disease - Acute kidney failure, unspecified - Chronic kidney disease, stage 4 (severe) - Acute kidney failure, unspecified - Gout, unspecified - Hyperlipidemia, unspecified - Chronic obstructive pulmonary disease, unspecified - Prediabetes - Hyperuricemia without signs of inflammatory arthritis and tophaceous disease - Other specified postprocedural states - Ischemic cardiomyopathy - Contact with and (suspected) exposure to COVID-19 - Hyperlipidemia, unspecified - Ischemic cardiomyopathy - Chronic obstructive pulmonary disease, unspecified - Prediabetes - Acquired absence of other specified parts of digestive tract - Acute on chronic systolic (congestive) heart failure - Pain in unspecified joint - FPC (current) use of aspirin - Gout, unspecified - Pure hypercholesterolemia, unspecified - Old myocardial infarction - Acquired absence of other specified parts of digestive tract - Atherosclerotic heart disease of [place] coronary artery without angina pectoris - Chronic pain syndrome - Other specified hypothyroidism - Acute on chronic systolic (congestive) heart failure - FPC (current) use of aspirin - meterman (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 of antithrombotics/antiplatelets - Hyperuricemia without signs of inflammatory arthritis and tophaceous disease - Other [facility] (current) drug therapy - Hypertensive heart and chronic kidney disease with heart failure and stage 1 through stage 4 chronic kidney disease, or unspecified chronic kidney disease - Other specified postprocedural states - Other specified hypothyroidism - Heart failure, unspecified - Pain in unspecified joint - Old myocardial infarction - Presence of coronary angioplasty implant and graft - Pure hypercholesterolemia, unspecified - Presence of coronary angioplasty implant and graft - Contact with and (suspected) exposure to COVID-19 01/29/2022 01:36 [facility] TYPE: Observation COMPLAINT: - RESPIRATORY FAILURE,CHF DIAGNOSES: - Chronic pain syndrome - Chronic kidney disease, stage 4 (severe) - Personal history of nicotine dependence - Acute on chronic systolic (congestive) heart failure - Old myocardial infarction - meterman (current) use of aspirin - Atherosclerotic heart disease of [place] coronary artery without angina pectoris - Anemia [...] or hypercapnia - Hyperlipidemia, unspecified [facility]21 [facility] TYPE: Internal Medicine DIAGNOSES: - elevated [...] disease - Personal history of nicotine dependence [email or web address]
[2022-02-27] MEDS ORDERED: IPRAT-ALBUT 0.5-3 ML INH (13:47)
== END 2022-02-27 14:08 | disposition home or self-care (01) ==
LOC: ED 09:10
DX: I11.0 Hypertensive heart disease with heart failure (principal); I50.9 Heart failure, unspecified; I25.2 Old myocardial infarction; E78.00 Pure hypercholesterolemia, unspecified; J44.9 Chronic obstructive pulmonary disease, unspecified; M10.9 Gout, unspecified; Z87.891 Personal history of nicotine dependence; Z79.899 Other long term (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; Z79.82 Long term (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
CPT/HCPCS: 36415; 71045; 80053; 83880; 85025; 93005; 93010; 94640; 94660; 96374; 99285-25; J1940

== ENCOUNTER 2022-03-06 07:43 | Observation (INO) | payer OTHER ==
[~2022-03-06] VITALS: Ht 175.3 cm; Wt 92.9 kg
[~2022-03-06 07:43] MED LIST changes: +IPRAT-ALBUT 0.5-3 ML INH
--- OUTSIDE RECORDS SUMMARY | 2022-03-06 07:46 | XMS ---
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 Most recent security events: Elopement at [facility] 04/10/2021 11:03 - Other Details: PATIENT LWBS CRITERIA MET - [facility] - Has Care Guidelines - 6 ED Visits in 6 Months - [facility] - 2 Visits in 30 Days - PDMP - Group Notification CARE PROVIDERS EDWARD FELICIANO [facility] 04/04/2019-Current PHONE: Unknown LUCY HERNANDEZ [facility] 06/22/2018-Current PHONE: Unknown [facility] Internal Medicine 01/24/2021-Current PHONE: Unknown JEROMY HERNANDES Internal Medicine: Pulmonary Disease 10/18/2018-Current PHONE: Unknown Ananda has no Care Guidelines for this patient. Care History Medical/Surgical 11/04/2021 [facility] \T\nbsp; Care Recommendation: \T\nbsp;\T\nbsp;\T\nbsp;\T\nbsp;\T\nbsp;\T\nbsp; \T\nbsp;\T\nbsp; PLEASE REVIEW MESHAP - ANANDA \T\nbsp;\T\nbsp;\T\nbsp;\T\nbsp;\T\ nbsp;\T\nbsp;\T\nbsp;\T\nbsp; USE EXTREME CAUTION IN GIVING NARCOTICS. \T\ nbsp;\T\nbsp;\T\nbsp;\T\nbsp;\T\nbsp;\T\nbsp;\T\nbsp;\T\nbsp; Avoid Discharge Narcotic prescriptions if at all possible. Physician discretion. 11/03/2021 [facility] - PATIENT WAS REFERRED TO [facility] 12/21/20.NEXT APT WITH THE PAIN CLINIC WILL BE ON 03/06/21 AND THEN THE PAIN CONTRACT WILL BE ESTABLISHED. - PATIENT HAS TWO PRIMARY CARE PHYSICIANS- DR GONZALEZ AND DR FELICIANO AT [facility]. PLEASE CONTACT [facility] BEFORE PRESCRIBING PAIN MEDICATION. PROVIDER DISCRETION. 10/14/2021 [facility] Follow up with Dr. Gonzalez on 10/24/2021. E.D. VISIT COUNT (12 MO.) [address] [facility] TOTAL 16 NOTE: Visits indicate total known visits. ED/UCC VISIT TRACKING (12 MO.) 03/06/2022 07:44 [facility] TYPE: Emergency COMPLAINT: - SOB 02/27/2022 09:11 [facility] TYPE: Emergency COMPLAINT: - SOB DIAGNOSES: - Gout, unspecified - Other nursing home (current) drug therapy - Pure hypercholesterolemia, unspecified - Shortness of breath - Chronic obstructive pulmonary disease, unspecified - Old myocardial infarction - Heart failure, unspecified - shelter (current) use of aspirin - Hypertensive heart disease with heart failure - Personal history of nicotine dependence 02/13/2022 03:57 [facility] TYPE: Emergency COMPLAINT: - SOB 02/02/2022 13:07 [facility] TYPE: Emergency COMPLAINT: - DIFFICULTY BREATHING, CHEST PAIN DIAGNOSES: - shelter (current) use of aspirin - Heart failure, unspecified - Pure hypercholesterolemia, unspecified - Chronic obstructive pulmonary disease, unspecified - Gout, unspecified - Chest pain, unspecified - Dyspnea, unspecified - Hypertensive heart disease with heart failure - Personal history of nicotine dependence - Old myocardial infarction - Other nursing home (current) drug therapy 01/29/2022 01:35 [facility] TYPE: Emergency COMPLAINT: - SOB 01/26/2022 09:36 [facility] TYPE: Emergency COMPLAINT: - DAYANARA DIAGNOSES: - Dyspnea, unspecified - Heart failure, unspecified - Gout, unspecified - Personal history of nicotine dependence - Hypertensive heart disease with heart failure - shelter (current) use of aspirin - Other car hopper (current) drug therapy - Chronic obstructive pulmonary disease, unspecified - Old myocardial infarction 12/27/2021 16:47 [facility] TYPE: Emergency COMPLAINT: - CONGESTION DIAGNOSES: - Gout, unspecified - Hypertensive heart disease with heart failure - edge worker (current) use of aspirin - Acute sinusitis, unspecified - Primary osteoarthritis, other specified site - Personal history of nicotine dependence - Old myocardial infarction - Pure hypercholesterolemia, unspecified - Other car hopper (current) drug therapy - Heart failure, unspecified - Chronic obstructive pulmonary disease, unspecified 11/01/2021 13:04 [facility] TYPE: Emergency COMPLAINT: - PAIN IN LEGS DIAGNOSES: - Pure hypercholesterolemia, unspecified - shelter (current) use of aspirin - Other car hopper (current) drug therapy - Old myocardial infarction [...] heart disease with heart failure - Other nursing home (current) drug therapy - COVID-19 - Heart failure, unspecified - Personal history of nicotine dependence - Gout, unspecified - Chronic obstructive pulmonary disease, unspecified - shelter (current) use of aspirin 08/19/2021 09:26 [facility] TYPE: Emergency COMPLAINT: - WEAKNESS DIAGNOSES: - Personal history of nicotine dependence - Heart failure, unspecified - Weakness - Old myocardial infarction - Gout, unspecified - Chronic obstructive pulmonary disease, unspecified - Hypertensive heart disease with heart failure - edge worker (current) use of aspirin - Other car hopper (current) drug therapy 08/01/2021 03:30 [facility] TYPE: Emergency COMPLAINT: - DIFFICULTY BREATHING DIAGNOSES: - edge worker (current) use of aspirin - Shortness of breath - Personal history of nicotine dependence - Contact with and (suspected) exposure to COVID-19 - Chronic obstructive pulmonary disease, unspecified - Gout, unspecified - Old myocardial infarction - Heart failure, unspecified - Non-ST elevation (NSTEMI) myocardial infarction - Pure hypercholesterolemia, unspecified - Hypertensive heart disease with heart failure - Other car hopper (current) drug therapy 07/21/2021 07:03 [facility] TYPE: Emergency COMPLAINT: - DIFFICULTY BREATHING DIAGNOSES: - shelter (current) use of aspirin - Shortness of breath - Presence of coronary angioplasty implant and graft - Presence of automatic (implantable) cardiac defibrillator - Personal history of nicotine dependence - Hypertensive heart disease with heart failure - Heart failure, unspecified - Old myocardial infarction - Pure hypercholesterolemia, unspecified - Other car hopper (current) drug therapy - Acquired absence of [...] heart disease with heart failure - Other nursing home (current) drug therapy - Heart failure, unspecified - edge worker (current) use of aspirin - Gout, unspecified - Personal history of nicotine dependence - Old myocardial infarction 04/13/2021 10:12 [facility] TYPE: Emergency COMPLAINT: - LEFT ARM PAIN DIAGNOSES: - Personal history of nicotine dependence - Cellulitis of left upper limb - Heart failure, unspecified - Chronic obstructive pulmonary disease, unspecified - shelter (current) use of aspirin - Other specified soft tissue disorders - Hypertensive heart disease with heart failure - Old myocardial infarction - Other nursing home (current) drug therapy 04/10/2021 11:03 [facility] TYPE: Emergency COMPLAINT: - L HAND SWELLING/PAIN INPATIENT VISIT TRACKING (12 MO.) 02/13/2022 06:[address] 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 of aspirin - Gout, unspecified - Pure hypercholesterolemia, unspecified - Old myocardial infarction - Acquired absence of other specified parts of digestive tract - Atherosclerotic heart disease of [place] coronary artery without angina pectoris - Chronic pain syndrome - Other specified hypothyroidism - Acute on chronic systolic (congestive) heart failure - edge worker (current) use of aspirin - shelter (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 of antithrombotics/antiplatelets - Hyperuricemia without signs of inflammatory arthritis and tophaceous disease - Other car hopper (current) drug therapy - Hypertensive heart and [...] heart failure - Old myocardial infarction - edge worker (current) use of aspirin - Atherosclerotic heart disease of [place] coronary artery without angina pectoris - Anemia [...] - Contact with and (suspected) exposure to COVID- - Shortness of breath - Acute respiratory failure, unspecified whether with hypoxia or hypercapnia - Hyperlipidemia, unspecified 08/01/2021 11:12 [facility] TYPE: Internal Medicine DIAGNOSES: - elevated troponin [...] disease - Personal history of nicotine dependence [email or web address]
--- NOTE | 2022-03-06 13:36 | NUR ---
PT TO ROOM FROM ER VIA WHEELCHAIR, ON 4L NC AND SWITCHED TO BIPAP IN ROOM. PT O2 SAT 100% ASSESSMENT COMPLETE. PT BILAT LOWER LUNGS CRACKLES, DIM. RESPIRATORY RATE 24. +1 EDEMA TO BILATERAL FEET. PT DENIES PAIN OR NEEDS AT THIS TIME. ORIENTED TO CALL LIGHT, WITHIN REACH.
--- NOTE | 2022-03-06 17:31 | NUR ---
THIS RN IN FOR HOURLY ROUNDING. PT SITTING AT EDGE OF BED EATING DINNER. FRESH IDCE WATER PROVIDED WITHIN FLUID RESTRICTION. PT ON 4L NC O2. PT DENIES FURTHER NEEDS AT THIS TIME. CALL LIGHT IN REACH.
--- NOTE | 2022-03-06 18:21 | NUR ---
PT SITTING ON EDGE OF BED. 4L NC O2, 97%. DENIES FURTHER NEEDS AT THIS TIME. CALL LIGHT WITHIN REACH.
--- NOTE | 2022-03-06 19:57 | NUR ---
PT ON 4LNC,CHRONIC, BIPAP AT BEDSIDE INC ASE HE WANT TO USE IT TONIGHT, LUNGS W FINE CRACKLES AT BASES ALERT AND ORIENTED, RECEIVED A TX EARLIER. C/O NECK AND SHOULDER PAIN, MEDICATED WITH 1 NORCO, COOP WITH ASSESSMENT, SL RFA PATENT.
--- NOTE | 2022-03-06 20:23 | EKG ---
[facility] [address] [facility] [place] [address] Signed AV dual-paced rhythm with premature atrial complexes with aberrant conduction Biventricular pacemaker detected Abnormal ECG When compared with ECG of 27-FEB-2022 09:34, aberrant conduction is now present Vent. rate has decreased BY 32 BPM Confirmed by NEREYDA VELEZ MD ([id number] on 03/06/2022 8:23:36 PM Electronically Signed By: NEREYDA VELEZ MD 03/06/222022 PATIENT NAME: RON MCKEON Electrocardiogram DATE OF : 53 PHYSICIAN: NEREYDA VELEZ MD REPORT #: [id number] REPORT IS CONFIDENTIAL AND NOT TO BE RELEASED WITHOUT AUTHORIZATION
--- NOTE | 2022-03-06 22:00 | NUR ---
in to get vitals, emptied urinal
--- NOTE | 2022-03-06 22:13 | NUR ---
sitting edge of bed, o2 4l nc chronic, no further c/o pain, tolerating fluid restriction well, tele#[address], no c/o cp.
--- NOTE | 2022-03-06 22:34 | NUR ---
CALL LIGHT ON. pt REQUESTED 250 MLS OF WATER. CONFIRMED WITH PRIMARY RN. DISCUSSED FLUID RESTRICTION AND REMAIN WATER WITH pt ALL QUESTIONS ANSWERED. PROVIDED WATER. CALL LIGHT WITHIN REACH. NO FURTHER REQUESTS AT THIS TIME.
--- NOTE | 2022-03-07 02:43 | NUR ---
AWAKES EASILY, USING 4LNC IN PLACE, F/C, DENIES SOB. C/O 04/16 NECK AND BACK PAIN, MEDICATED WITH PERCOCET, TOLERATING FLUID RESTRICTION
--- NOTE | 2022-03-07 04:32 | NUR ---
awake, playing on his phone, O2 4LNC, denies c/o pain or sob, tolerating fluid restriction. uses call light, voiding QS
--- NOTE | 2022-03-07 05:36 | NUR ---
Pt on 4LNC chronic O2, has not used his BIPAP tonight. Lungs with fine crackles at bases and dim t/o. no c/o sob, received neb tx. no CP. tele#[address], paced rhtythm. SL patent. voiding QS, has tolerated fluid restriction well, no emesis. flat affect at times, pleasant and cooperative, alert and oriented. Has been medicated x2 w [place] per c/o chronic neck and back pain, effective. cpox in place
--- NOTE | 2022-03-07 11:14 | NUR ---
Admin one tab norco 10/325mg po for reports of 5/10 abd pain. Patient sitting up at bedside on his phone, no acute distress. Patient reports he is feeling much better this morning. Patient is on 5L oxygen per nc, respirations non labored. No acute needs at this time. Personal supplies and call light within reach.
== END 2022-03-07 12:15 | disposition home or self-care (01) ==
LOC: ED 07:43 → MS 07:45
PROVIDERS: ADMIT Internal Medicine; ATTEND Internal Medicine
DX: J96.01 Acute respiratory failure with hypoxia (principal); I11.0 Hypertensive heart disease with heart failure; I50.23 Acute on chronic systolic (congestive) heart failure; I25.10 Atherosclerotic heart disease of native coronary artery without angina pectoris; M19.90 Unspecified osteoarthritis, unspecified site; G89.4 Chronic pain syndrome; I25.2 Old myocardial infarction; E78.5 Hyperlipidemia, unspecified; J44.9 Chronic obstructive pulmonary disease, unspecified; M10.9 Gout, unspecified; R73.03 Prediabetes; Z95.810 Presence of automatic (implantable) cardiac defibrillator; Z95.5 Presence of coronary angioplasty implant and graft; Z95.1 Presence of aortocoronary bypass graft; Z87.891 Personal history of nicotine dependence; Z86.73 Personal history of transient ischemic attack (TIA), and cerebral infarction without residual deficits; Z20.822 Contact with and (suspected) exposure to COVID-19
CPT/HCPCS: 36415; 36600; 71045; 80048; 80053; 82803; 83735; 83880; 84484; 85025; 87502; 93005; 93010; 94640; 94660; 94762; 96376; A9270; C9803; G0378; J1940; U0003

== ENCOUNTER 2022-03-18 10:45 | Emergency (ER) | payer OTHER ==
[~2022-03-18] VITALS: Ht 175.3 cm; Wt 92.5 kg
[~2022-03-18 10:45] MED LIST changes: +TRANSDERM-SCOP1 EACH TD
--- OUTSIDE RECORDS SUMMARY | 2022-03-18 10:48 | XMS ---
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 Most recent security events: Elopement at [facility] 04/10/2021 11:03 - Other Details: PATIENT LWBS CRITERIA MET - [facility] - Has Care Guidelines - [facility] - 2 Visits in 30 Days - 6 ED Visits in 6 Months - PDMP - Group Notification CARE PROVIDERS EDWARD FELICIANO [facility] 04/04/2019-Current PHONE: Unknown LUCY HERNANDEZ [facility] 06/22/2018-Current PHONE: Unknown [facility] Internal Medicine 01/24/2021-Current PHONE: Unknown JEROMY HERNANDES Internal Medicine: Pulmonary Disease 10/18/2018-Current PHONE: Unknown Ananda has no Care Guidelines for this patient. Care History Medical/Surgical 11/04/2021 [facility] \T\nbsp; Care Recommendation: \T\nbsp;\T\nbsp;\T\nbsp;\T\nbsp;\T\nbsp;\T\nbsp; \T\nbsp;\T\nbsp; PLEASE REVIEW MESHAP - ANANDA \T\nbsp;\T\nbsp;\T\nbsp;\T\nbsp;\T\ nbsp;\T\nbsp;\T\nbsp;\T\nbsp; USE EXTREME CAUTION IN GIVING NARCOTICS. \T\ nbsp;\T\nbsp;\T\nbsp;\T\nbsp;\T\nbsp;\T\nbsp;\T\nbsp;\T\nbsp; Avoid Discharge Narcotic prescriptions if at all possible. Physician discretion. 11/03/2021 [facility] - PATIENT WAS REFERRED TO [facility] 12/21/20.NEXT APT WITH THE PAIN CLINIC WILL BE ON 03/06/21 AND THEN THE PAIN CONTRACT WILL BE ESTABLISHED. - PATIENT HAS TWO PRIMARY CARE PHYSICIANS- DR GONZALEZ AND DR FELICIANO AT [facility]. PLEASE CONTACT [facility] BEFORE PRESCRIBING PAIN MEDICATION. PROVIDER DISCRETION. 10/14/2021 [facility] Follow up with Dr. Gonzalez on 10/24/2021. E.D. VISIT COUNT (12 MO.) 18 [facility] TOTAL 18 NOTE: Visits indicate total known visits. ED/UCC VISIT TRACKING (12 MO.) 03/18/2022 10:46 [facility] TYPE: Emergency COMPLAINT: - DAYANARA 03/12/2022 18:27 [facility] TYPE: Emergency COMPLAINT: - DIFFICULTY BREATHING DIAGNOSES: - Hypertensive heart disease with heart failure - Old myocardial infarction - Other manager long term care (current) drug therapy - Personal history of transient ischemic attack (TIA), and cerebral infarction without residual deficits - Personal history of nicotine dependence - [facility] (current) use of aspirin - Heart failure, unspecified - Chronic obstructive pulmonary disease, unspecified - Dizziness and giddiness 03/06/2022 07:44 [facility] TYPE: Emergency COMPLAINT: - SOB 02/27/2022 09:11 [facility] TYPE: Emergency COMPLAINT: - SOB DIAGNOSES: - Gout, unspecified - Other senior care (current) drug therapy - Pure hypercholesterolemia, unspecified - Shortness of breath - Chronic obstructive pulmonary disease, unspecified - Old myocardial infarction - Heart failure, unspecified - [facility] (current) use of aspirin - Hypertensive heart disease with heart failure - Personal history of nicotine dependence 02/13/2022 03:57 [facility] TYPE: Emergency COMPLAINT: - SOB 02/02/2022 13:07 [facility] TYPE: Emergency COMPLAINT: - DIFFICULTY BREATHING, CHEST PAIN DIAGNOSES: - roasterman (current) use of aspirin - Heart failure, unspecified - Pure hypercholesterolemia, unspecified - Chronic obstructive pulmonary disease, unspecified - Gout, unspecified - Chest pain, unspecified - Dyspnea, unspecified - Hypertensive heart disease with heart failure - Personal history of nicotine dependence - Old myocardial infarction - Other manager long term care (current) drug therapy 01/29/2022 01:35 [facility] TYPE: Emergency COMPLAINT: - SOB 01/26/2022 09:36 [facility] TYPE: Emergency COMPLAINT: - DAYANARA DIAGNOSES: - Dyspnea, unspecified - Heart failure, unspecified - Gout, unspecified - Personal history of nicotine dependence - Hypertensive heart disease with heart failure - roasterman (current) use of aspirin - Other senior care (current) drug therapy - Chronic obstructive pulmonary disease, unspecified - Old myocardial infarction 12/27/2021 16:47 [facility] TYPE: Emergency COMPLAINT: - CONGESTION DIAGNOSES: - Gout, unspecified - Hypertensive heart disease with heart failure - [facility] (current) use of aspirin - Acute sinusitis, unspecified - Primary osteoarthritis, other specified site - Personal history of nicotine dependence - Old myocardial infarction - Pure hypercholesterolemia, unspecified - Other senior care (current) drug therapy - Heart failure, unspecified - Chronic obstructive pulmonary disease, unspecified 11/01/2021 13:04 [facility] TYPE: Emergency COMPLAINT: - PAIN IN LEGS DIAGNOSES: - Pure hypercholesterolemia, unspecified - [facility] (current) use of aspirin - Other manager long term care (current) drug therapy - [...] heart disease with heart failure - Other manager long term care (current) drug therapy - COVID-19 - Heart failure, unspecified - Personal history of nicotine dependence - Gout, unspecified - Chronic obstructive pulmonary disease, unspecified - [facility] (current) use of aspirin 08/19/2021 09:26 [facility] TYPE: Emergency COMPLAINT: - WEAKNESS DIAGNOSES: - Personal history of nicotine dependence - Heart failure, unspecified - Weakness - Old myocardial infarction - Gout, unspecified - Chronic obstructive pulmonary disease, unspecified - Hypertensive heart disease with heart failure - roasterman (current) use of aspirin - Other manager long term care (current) drug therapy 08/01/2021 03:30 [facility] TYPE: Emergency COMPLAINT: - DIFFICULTY BREATHING DIAGNOSES: - roasterman (current) use of aspirin - Shortness of breath - Personal history of nicotine dependence - Contact with and (suspected) exposure to COVID-19 - Chronic obstructive pulmonary disease, unspecified - Gout, unspecified - Old myocardial infarction - Heart failure, unspecified - Non-ST elevation (NSTEMI) myocardial infarction - Pure hypercholesterolemia, unspecified - Hypertensive heart disease with heart failure - Other senior care (current) drug therapy 07/21/2021 07:03 [facility] TYPE: Emergency COMPLAINT: - DIFFICULTY BREATHING DIAGNOSES: - [facility] (current) use of aspirin - Shortness of breath - Presence of coronary angioplasty implant and graft - Presence of automatic (implantable) cardiac defibrillator - Personal history of nicotine dependence - Hypertensive heart disease with heart failure - Heart failure, unspecified - Old myocardial infarction - Pure hypercholesterolemia, unspecified - Other senior care (current) drug [...] disease with heart failure - Other senior care (current) drug therapy - Heart failure, unspecified - roasterman (current) use of aspirin - Gout, unspecified - Personal history of nicotine dependence - Old myocardial infarction 04/13/2021 10:12 [facility] TYPE: Emergency COMPLAINT: - LEFT ARM PAIN DIAGNOSES: - Personal history of nicotine dependence - Cellulitis of left upper limb - Heart failure, unspecified - Chronic obstructive pulmonary disease, unspecified - roasterman (current) use of aspirin - Other specified soft tissue disorders - Hypertensive heart disease with heart failure - Old myocardial infarction - Other senior care (current) drug therapy 04/10/2021 11:03 [facility] TYPE: Emergency COMPLAINT: - L HAND SWELLING/PAIN INPATIENT VISIT TRACKING (12 MO.) 03/06/2022 07:45 [facility] TYPE: Observation COMPLAINT: - ACUTE ON CHRONIC SYSTOLIC CONGESTIVE HEART FAILURE DIAGNOSES: - Prediabetes - Old myocardial infarction - Chronic pain syndrome - Contact with and (suspected) exposure to COVID-19 - Atherosclerotic heart disease of [place] coronary artery without angina pectoris - Presence of aortocoronary bypass graft - Personal history of nicotine dependence - Presence of automatic (implantable) cardiac defibrillator - Unspecified osteoarthritis, unspecified site - Hypertensive heart disease with heart failure - Hyperlipidemia, unspecified - Acute on chronic systolic (congestive) heart failure - Chronic obstructive pulmonary disease, unspecified - Presence of coronary angioplasty implant and graft - Gout, unspecified - Acute respiratory failure with hypoxia - Personal history of transient ischemic attack (TIA), and cerebral infarction without residual deficits 02/13/2022 06:17 [facility] TYPE: Critical Care COMPLAINT: - CHF EXCERBATION DIAGNOSES: - roasterman (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 of antithrombotics/antiplatelets - Other senior care (current) drug therapy - Hypertensive heart and chronic kidney disease with heart failure and stage 1 through stage 4 chronic kidney disease, or unspecified chronic kidney disease - Chronic pain syndrome - Atherosclerotic heart disease of [place] coronary artery without angina pectoris - Chronic [...] failure - Pain in unspecified joint - [facility] (current) use of aspirin - Gout, unspecified - Pure hypercholesterolemia, unspecified - Old myocardial infarction - Acquired absence of other specified parts of digestive tract - Atherosclerotic heart disease of [place] coronary artery without angina pectoris - Chronic pain syndrome - Other specified hypothyroidism - Acute on chronic systolic (congestive) heart failure - [facility] (current) use of aspirin - [facility] (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 of antithrombotics/antiplatelets - Hyperuricemia without signs of inflammatory arthritis and tophaceous disease - Other manager long term care (current) drug therapy - Hypertensive heart and [...] (suspected) exposure to COVID-19 01/29/2022 01:36 [facility] TYPE: Observation COMPLAINT: - RESPIRATORY FAILURE,CHF DIAGNOSES: - Chronic pain syndrome - Chronic kidney disease, stage 4 (severe) - Personal history of nicotine dependence - Acute on chronic systolic (congestive) heart failure - Old myocardial infarction - [facility] (current) use of aspirin - Atherosclerotic heart disease of [place] coronary artery without angina pectoris - Anemia [...] or hypercapnia - Hyperlipidemia, unspecified 08/01/2021 11:12 [facility] TYPE: Internal Medicine DIAGNOSES: - elevated troponin [...] disease - Personal history of nicotine dependence [email or web address]
[2022-03-18] MEDS ORDERED: PREDNISONE20 MG PO (13:41)
--- NOTE | 2022-03-19 00:27 | EKG ---
[facility] [address] [facility] [place], [place] [address] Signed Atrial-sensed ventricular-paced rhythm Biventricular pacemaker detected Abnormal ECG No previous ECGs available Confirmed by NEREYDA VELEZ MD ([id number]) on 03/19/2022 12:27:24 AM Electronically Signed By: NEREYDA VELEZ MD 03/19/22 0027 PATIENT NAME: RON MCKEON Electrocardiogram DATE OF : 53 PHYSICIAN: NEREYDA VELEZ MD REPORT #: [id number] REPORT IS CONFIDENTIAL AND NOT TO BE RELEASED WITHOUT AUTHORIZATION
== END 2022-03-18 13:56 | disposition home or self-care (01) ==
LOC: ED 10:45
DX: R06.02 Shortness of breath (principal); I25.2 Old myocardial infarction; I11.0 Hypertensive heart disease with heart failure; I50.9 Heart failure, unspecified; J44.9 Chronic obstructive pulmonary disease, unspecified; M10.9 Gout, unspecified; Z87.891 Personal history of nicotine dependence; Z79.899 Other long term (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; Z79.82 Long term (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; Z20.822 Contact with and (suspected) exposure to COVID-19
CPT/HCPCS: 36415; 36600; 71045; 80053; 82803; 84484; 85025; 87502; 93005; 93010; 99285-25; C9803; U0003

== ENCOUNTER 2022-03-18 21:29 | Emergency (ER) | payer OTHER ==
[~2022-03-18] VITALS: Ht 175.3 cm; Wt 92.5 kg
--- OUTSIDE RECORDS SUMMARY | 2022-03-18 21:31 | XMS ---
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 events: Elopement at [facility] 04/10/2021 11:03 - Other Details: PATIENT LWBS CRITERIA MET - PDMP - [facility] - Has Care Guidelines - 6 ED Visits in 6 Months - [facility] - 2 Visits in 30 Days - Group Notification CARE PROVIDERS EDWARD FELICIANO [facility] 04/04/2019-Current PHONE: Unknown LUCY HERNANDEZ [facility] 06/22/2018-Current PHONE: Unknown [facility] Internal Medicine 01/24/2021-Current PHONE: Unknown JEROMY HERNANDES Internal Medicine: Pulmonary Disease 10/18/2018-Current PHONE: Unknown Ananda has no Care Guidelines for this patient. Care History Medical/Surgical 11/04/2021 [facility] \T\nbsp; Care Recommendation: \T\nbsp;\T\nbsp;\T\nbsp;\T\nbsp;\T\nbsp;\T\nbsp; \T\nbsp;\T\nbsp; PLEASE REVIEW MESHAP - ANANDA \T\nbsp;\T\nbsp;\T\nbsp;\T\nbsp;\T\ nbsp;\T\nbsp;\T\nbsp;\T\nbsp; USE EXTREME CAUTION IN GIVING NARCOTICS. \T\ nbsp;\T\nbsp;\T\nbsp;\T\nbsp;\T\nbsp;\T\nbsp;\T\nbsp;\T\nbsp; Avoid Discharge Narcotic prescriptions if at all possible. Physician discretion. 11/03/2021 [facility] - PATIENT WAS REFERRED TO [facility] 12/21/20.NEXT APT WITH THE PAIN CLINIC WILL BE ON 03/06/21 AND THEN THE PAIN CONTRACT WILL BE ESTABLISHED. - PATIENT HAS TWO PRIMARY CARE PHYSICIANS- DR GONZALEZ AND DR FELICIANO AT [facility]. PLEASE CONTACT [facility] BEFORE PRESCRIBING PAIN MEDICATION. PROVIDER DISCRETION. 10/14/2021 [facility] Follow up with Dr. Gonzalez on 10/24/2021. E.D. VISIT COUNT (12 MO.) [address] [facility] [place] TOTAL 19 NOTE: Visits indicate total known visits. ED/UCC VISIT TRACKING (12 MO.) 03/18/2022 21:29 [facility] TYPE: Emergency COMPLAINT: - CHEST PAIN 03/18/2022 10:46 [facility] TYPE: Emergency COMPLAINT: - DAYANARA 03/12/2022 18:27 [facility] TYPE: Emergency COMPLAINT: - DIFFICULTY BREATHING DIAGNOSES: - Hypertensive heart disease with heart failure - Old myocardial infarction - Other detention (current) drug therapy - Personal history of transient ischemic attack (TIA), and cerebral infarction without residual deficits - Personal history of nicotine dependence - technician terminal and repeater (current) use of aspirin - Heart failure, unspecified - Chronic obstructive pulmonary disease, unspecified - Dizziness and giddiness 03/06/2022 07:44 [facility] TYPE: Emergency COMPLAINT: - SOB 02/27/2022 09:11 [facility] TYPE: Emergency COMPLAINT: - SOB DIAGNOSES: - Gout, unspecified - Other detention (current) drug therapy - Pure hypercholesterolemia, unspecified - Shortness of breath - Chronic obstructive pulmonary disease, unspecified - Old myocardial infarction - Heart failure, unspecified - FDC (current) use of aspirin - Hypertensive heart disease with heart failure - Personal history of nicotine dependence 02/13/2022 03:57 [facility] TYPE: Emergency COMPLAINT: - SOB 02/02/2022 13:07 [facility] TYPE: Emergency COMPLAINT: - DIFFICULTY BREATHING, CHEST PAIN DIAGNOSES: - FDC (current) use of aspirin - Heart failure, unspecified - Pure hypercholesterolemia, unspecified - Chronic obstructive pulmonary disease, unspecified - Gout, unspecified - Chest pain, unspecified - Dyspnea, unspecified - Hypertensive heart disease with heart failure - Personal history of nicotine dependence - Old myocardial infarction - Other detention (current) drug therapy 01/29/2022 01:35 [facility] TYPE: Emergency COMPLAINT: - SOB 01/26/2022 09:36 [facility] TYPE: Emergency COMPLAINT: - DAYANARA DIAGNOSES: - Dyspnea, unspecified - Heart failure, unspecified - Gout, unspecified - Personal history of nicotine dependence - Hypertensive heart disease with heart failure - FDC (current) use of aspirin - Other detention (current) drug therapy - Chronic obstructive pulmonary disease, unspecified - Old myocardial infarction 12/27/2021 16:47 [facility] TYPE: Emergency COMPLAINT: - CONGESTION DIAGNOSES: - Gout, unspecified - Hypertensive heart disease with heart failure - technician terminal and repeater (current) use of aspirin - Acute sinusitis, unspecified - Primary osteoarthritis, other specified site - Personal history of nicotine dependence - Old myocardial infarction - Pure hypercholesterolemia, unspecified - Other detention (current) drug therapy - Heart failure, unspecified - Chronic obstructive pulmonary disease, unspecified 11/01/2021 13:04 [facility] TYPE: Emergency COMPLAINT: - PAIN IN LEGS DIAGNOSES: - Pure hypercholesterolemia, unspecified - FDC (current) use of aspirin - Other detention (current) drug therapy - Old myocardial infarction [...] - Other detention (current) drug therapy - COVID-19 - Heart [...] FDC (current) use of aspirin - Other technician terminal and repeater (current) drug therapy 08/01/2021 03:30 [facility] TYPE: Emergency COMPLAINT: - DIFFICULTY BREATHING DIAGNOSES: - technician terminal and repeater (current) use of aspirin - Shortness of breath - Personal history of nicotine dependence - Contact with and (suspected) exposure to COVID-19 - Chronic obstructive pulmonary disease, unspecified - Gout, unspecified - Old myocardial infarction - Heart failure, unspecified - Non-ST elevation (NSTEMI) myocardial infarction - Pure hypercholesterolemia, unspecified - Hypertensive heart disease with heart failure - Other technician terminal and repeater (current) drug therapy 07/21/2021 07:03 [facility] TYPE: Emergency COMPLAINT: - DIFFICULTY BREATHING DIAGNOSES: - technician terminal and repeater (current) use of aspirin - Shortness of breath - Presence of coronary angioplasty implant and graft - Presence of automatic (implantable) cardiac defibrillator - Personal history of nicotine dependence - Hypertensive heart disease with heart failure - Heart failure, unspecified - Old myocardial infarction - Pure hypercholesterolemia, unspecified - Other technician terminal and repeater (current) drug therapy - Acquired absence of [...] heart disease with heart failure - Other technician terminal and repeater (current) drug therapy - Heart failure, unspecified [...] FDC (current) use of aspirin - Other specified soft tissue disorders - Hypertensive heart disease with heart failure - Old myocardial infarction - Other detention (current) drug therapy 04/10/2021 11:03 [facility] TYPE: Emergency COMPLAINT: - L HAND SWELLING/PAIN INPATIENT VISIT TRACKING (12 MO.) 03/06/2022 07:45 [facility] TYPE: Observation COMPLAINT: - ACUTE ON CHRONIC SYSTOLIC CONGESTIVE HEART FAILURE DIAGNOSES: - Prediabetes - Old myocardial infarction - Chronic pain syndrome - Contact with and (suspected) exposure to COVID-19 - Atherosclerotic heart disease of [place] coronary artery without angina pectoris - Presence [...] Care COMPLAINT: - CHF EXCERBATION DIAGNOSES: - FDC (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 of antithrombotics/antiplatelets - Other detention (current) drug therapy - Hypertensive heart and chronic kidney disease with heart failure and stage 1 through stage 4 chronic kidney disease, or unspecified chronic kidney disease - Chronic pain syndrome - Atherosclerotic heart disease of [place] coronary artery without angina pectoris - Chronic [...] failure - Pain in unspecified joint - technician terminal and repeater (current) use of aspirin - Gout, unspecified - Pure hypercholesterolemia, unspecified - Old myocardial infarction - Acquired absence of other specified parts of digestive tract - Atherosclerotic heart disease of [place] coronary artery without angina pectoris - Chronic pain syndrome - Other specified hypothyroidism - Acute on chronic systolic (congestive) heart failure - technician terminal and repeater (current) use of aspirin - FDC (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 of antithrombotics/antiplatelets - Hyperuricemia without signs of inflammatory arthritis and tophaceous disease - Other technician terminal and repeater (current) drug therapy - Hypertensive heart and [...] heart failure - Old myocardial infarction - technician terminal and repeater (current) use of aspirin - Atherosclerotic heart disease of [place] coronary artery without angina pectoris - Anemia [...] or hypercapnia - Hyperlipidemia, unspecified 08/01/2021 11:12 [facility] TYPE: Internal Medicine DIAGNOSES: - [...] disease - Personal history of nicotine dependence [email or web address]
--- NOTE | 2022-03-19 00:30 | EKG ---
[facility] [address] [place] [address] Signed Atrial-sensed ventricular-paced rhythm Biventricular pacemaker detected Abnormal ECG When compared with ECG of 18-MAR-2022 10:37, (Unconfirmed) Vent. rate has decreased BY 13 BPM Confirmed by NEREYDA VELEZ MD ([id number]) on 03/19/2022 12:30:18 AM Electronically Signed By: NEREYDA VELEZ MD 03/19/22 0030 PATIENT NAME: RON MCKEON Electrocardiogram DATE OF : 53 PHYSICIAN: NEREYDA VELEZ MD REPORT #: [id number] REPORT IS CONFIDENTIAL AND NOT TO BE RELEASED WITHOUT AUTHORIZATION
== END 2022-03-19 02:08 | disposition home or self-care (01) ==
LOC: ED 21:29
DX: J44.1 Chronic obstructive pulmonary disease with (acute) exacerbation (principal); I11.0 Hypertensive heart disease with heart failure; I50.9 Heart failure, unspecified; Z95.5 Presence of coronary angioplasty implant and graft; Z95.0 Presence of cardiac pacemaker; Z79.52 Long term (current) use of systemic steroids; Z79.899 Other long term (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; Z79.82 Long term (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; Z79.01 Long term (current) use of anticoagulants
CPT/HCPCS: 36415; 71045; 80053; 83735; 83880; 84484; 85025; 93005; 93010; 94640; 94660; 99285-25

== ENCOUNTER 2022-03-19 08:31 | Emergency (ER) | payer OTHER ==
[~2022-03-19] VITALS: Ht 175.3 cm; Wt 92.5 kg
--- OUTSIDE RECORDS SUMMARY | 2022-03-19 08:34 | XMS ---
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 - 2 Visits in 30 Days - 6 ED Visits in 6 Months - [facility] - Has Care Guidelines CARE PROVIDERS EDWARD FELICIANO [facility] 04/04/2019-Current PHONE: Unknown LUCY HERNANDEZ [facility] 06/22/2018-Current PHONE: Unknown [facility] Internal Medicine 01/24/2021-Current PHONE: Unknown JEROMY HERNANDES Internal Medicine: Pulmonary Disease 10/18/2018-Current PHONE: Unknown Ananda has no Care Guidelines for this patient. Care History Medical/Surgical 11/04/2021 [facility] \T\nbsp; Care Recommendation: \T\nbsp;\T\nbsp;\T\nbsp;\T\nbsp;\T\nbsp;\T\nbsp; \T\nbsp;\T\nbsp; PLEASE REVIEW MESHAP - ANANDA \T\nbsp;\T\nbsp;\T\nbsp;\T\nbsp;\T\ nbsp;\T\nbsp;\T\nbsp;\T\nbsp; USE EXTREME CAUTION IN GIVING NARCOTICS. \T\ nbsp;\T\nbsp;\T\nbsp;\T\nbsp;\T\nbsp;\T\nbsp;\T\nbsp;\T\nbsp; Avoid Discharge Narcotic prescriptions if at all possible. Physician discretion. 11/03/2021 [facility] - PATIENT WAS REFERRED TO [facility] 12/21/20.NEXT APT WITH THE PAIN CLINIC WILL BE ON 03/06/21 AND THEN THE PAIN CONTRACT WILL BE ESTABLISHED. - PATIENT HAS TWO PRIMARY CARE PHYSICIANS- DR GONZALEZ AND DR FELICIANO AT [facility]. PLEASE CONTACT [facility] BEFORE PRESCRIBING PAIN MEDICATION. PROVIDER DISCRETION. 10/14/2021 [facility] Follow up with Dr. Gonzalez on 10/24/2021. E.D. VISIT COUNT (12 MO.) [address] [facility] [place] TOTAL 20 NOTE: Visits indicate total known visits. ED/UCC VISIT TRACKING (12 MO.) 03/19/2022 08:32 [facility] TYPE: Emergency COMPLAINT: - SOB 03/18/2022 21:29 [facility] TYPE: Emergency COMPLAINT: - CHEST PAIN 03/18/2022 10:46 [facility] TYPE: Emergency COMPLAINT: - DAYANARA 03/12/2022 18:27 [facility] TYPE: Emergency COMPLAINT: - DIFFICULTY BREATHING DIAGNOSES: - Hypertensive heart disease with heart failure - Old myocardial infarction - Other machine long goods helper (current) drug therapy - Personal history of transient ischemic attack (TIA), and cerebral infarction without residual deficits - Personal history of nicotine dependence - terminal makeup operator (current) use of aspirin - Heart failure, unspecified - Chronic obstructive pulmonary disease, unspecified - Dizziness and giddiness 03/06/2022 07:44 [facility] TYPE: Emergency COMPLAINT: - SOB 02/27/2022 09:11 [facility] TYPE: Emergency COMPLAINT: - SOB DIAGNOSES: - Gout, unspecified - Other half-way (current) drug therapy - Pure hypercholesterolemia, unspecified - Shortness of breath - Chronic obstructive pulmonary disease, unspecified - Old myocardial infarction - Heart failure, unspecified - longterm (current) 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 - Hypertensive heart disease with heart failure - Personal history of nicotine dependence 02/13/2022 03:57 [facility] TYPE: Emergency COMPLAINT: - SOB 02/02/2022 13:07 [facility] TYPE: Emergency COMPLAINT: - DIFFICULTY BREATHING, CHEST PAIN DIAGNOSES: - longterm (current) 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 - Heart failure, unspecified - Pure hypercholesterolemia, unspecified - Chronic obstructive pulmonary disease, unspecified - Gout, unspecified - Chest pain, unspecified - Dyspnea, unspecified - Hypertensive heart disease with heart failure - Personal history of nicotine dependence - Old myocardial infarction - Other machine long goods helper (current) drug therapy 01/29/2022 01:35 [facility] TYPE: Emergency COMPLAINT: - SOB 01/26/2022 09:36 [facility] TYPE: Emergency COMPLAINT: - DAYANARA DIAGNOSES: - Dyspnea, unspecified - Heart failure, unspecified - Gout, unspecified - Personal history of nicotine dependence - Hypertensive heart disease with heart failure - longterm (current) 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 - Other machine long goods helper (current) drug therapy - Chronic obstructive pulmonary disease, unspecified - Old myocardial infarction 12/27/2021 16:47 [facility] TYPE: Emergency COMPLAINT: - CONGESTION DIAGNOSES: - Gout, unspecified - Hypertensive heart disease with heart failure - longterm (current) 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 - Acute sinusitis, unspecified - Primary osteoarthritis, other specified site - Personal history of nicotine dependence - Old myocardial infarction - Pure hypercholesterolemia, unspecified - Other machine long goods helper (current) drug therapy - Heart failure, unspecified - Chronic obstructive pulmonary disease, unspecified 11/01/2021 13:04 [facility] TYPE: Emergency COMPLAINT: - PAIN IN LEGS DIAGNOSES: - Pure hypercholesterolemia, unspecified - terminal makeup operator (current) use of aspirin - Other machine long goods helper (current) drug therapy - Old myocardial infarction [...] heart disease with heart failure - Other half-way (current) drug therapy - COVID-19 - Heart failure, unspecified - Personal history of nicotine dependence - Gout, unspecified - Chronic obstructive pulmonary disease, unspecified - terminal makeup operator (current) use of aspirin 08/19/2021 09:26 [facility] TYPE: Emergency COMPLAINT: - WEAKNESS DIAGNOSES: - Personal history of nicotine dependence - Heart failure, unspecified - Weakness - Old myocardial infarction - Gout, unspecified - Chronic obstructive pulmonary disease, unspecified - Hypertensive heart disease with heart failure - terminal makeup operator (current) use of aspirin - Other machine long goods helper (current) drug therapy 08/01/2021 03:30 [facility] TYPE: Emergency COMPLAINT: - DIFFICULTY BREATHING DIAGNOSES: - terminal makeup operator (current) use of aspirin - Shortness of breath - Personal history of nicotine dependence - Contact with and (suspected) exposure to COVID-19 - Chronic obstructive pulmonary disease, unspecified - Gout, unspecified - Old myocardial infarction - Heart failure, unspecified - Non-ST elevation (NSTEMI) myocardial infarction - Pure hypercholesterolemia, unspecified - Hypertensive heart disease with heart failure - Other machine long goods helper (current) drug therapy 07/21/2021 07:03 [facility] TYPE: Emergency COMPLAINT: - DIFFICULTY BREATHING DIAGNOSES: - longterm (current) 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 - Shortness of breath - Presence of coronary angioplasty implant and graft - Presence of automatic (implantable) cardiac defibrillator - Personal history of nicotine dependence - Hypertensive heart disease with heart failure - Heart failure, unspecified - Old myocardial infarction - Pure hypercholesterolemia, unspecified - Other half-way (current) drug therapy - Acquired absence of [...] heart disease with heart failure - Other half-way (current) drug therapy - Heart failure, unspecified - terminal makeup operator (current) use of aspirin - Gout, unspecified - Personal history of nicotine dependence - Old myocardial infarction 04/13/2021 10:12 [facility] TYPE: Emergency COMPLAINT: - LEFT ARM PAIN DIAGNOSES: - Personal history of nicotine dependence - Cellulitis of left upper limb - Heart failure, unspecified - Chronic obstructive pulmonary disease, unspecified - longterm (current) 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 - Other specified soft tissue disorders - Hypertensive heart disease with heart failure - Old myocardial infarction - Other half-way (current) drug therapy 04/10/2021 11:03 [facility] TYPE: Emergency COMPLAINT: - L HAND SWELLING/PAIN INPATIENT VISIT TRACKING (12 MO.) 03/06/2022 07:45 [facility] TYPE: Observation COMPLAINT: - ACUTE ON CHRONIC SYSTOLIC CONGESTIVE HEART FAILURE DIAGNOSES: - Prediabetes - Old myocardial infarction - Chronic pain syndrome - Contact with and (suspected) exposure to COVID-19 - Atherosclerotic heart disease of [place] coronary artery without angina pectoris - Presence [...] Care COMPLAINT: - CHF EXCERBATION DIAGNOSES: - terminal makeup operator (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 of antithrombotics/antiplatelets - Other machine long goods helper (current) drug therapy - Hypertensive heart and chronic kidney disease with heart failure and stage 1 through stage 4 chronic kidney disease, or unspecified chronic kidney disease - Chronic pain syndrome - Atherosclerotic heart disease of [place] coronary artery without angina pectoris - Chronic [...] failure - Pain in unspecified joint - terminal makeup operator (current) use of aspirin - Gout, unspecified - Pure hypercholesterolemia, unspecified - Old myocardial infarction - Acquired absence of other specified parts of digestive tract - Atherosclerotic heart disease of [place] coronary artery without angina pectoris - Chronic pain syndrome - Other specified hypothyroidism - Acute on chronic systolic (congestive) heart failure - longterm (current) 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 - terminal makeup operator (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 of antithrombotics/antiplatelets - Hyperuricemia without signs of inflammatory arthritis and tophaceous disease - Other machine long goods helper (current) drug therapy - Hypertensive heart and [...] heart failure - Old myocardial infarction - terminal makeup operator (current) use of aspirin - Atherosclerotic heart disease of [place] coronary artery without angina pectoris - Anemia [...] or hypercapnia - Hyperlipidemia, unspecified 08/01/2021 11:12 [facility] TYPE: Internal Medicine DIAGNOSES: - elevated troponin [...] disease - Personal history of nicotine dependence [email or web address]
--- NOTE | 2022-03-19 12:47 | EKG ---
[facility] [address] [place] [address] Signed Atrial-sensed ventricular-paced rhythm Biventricular pacemaker detected Abnormal ECG When compared with ECG of 18-MAR-2022 22:13, Vent. rate has decreased BY 9 BPM Confirmed by NEREYDA VELEZ MD ([id number]) on 03/19/2022 12:46:57 PM Electronically Signed By: NEREYDA VELEZ MD 03/19/22 1247 PATIENT NAME: RON MCKEON Electrocardiogram DATE OF : 53 PHYSICIAN: NEREYDA VELEZ MD REPORT #: [id number] REPORT IS CONFIDENTIAL AND NOT TO BE RELEASED WITHOUT AUTHORIZATION
== END 2022-03-19 10:08 | disposition home or self-care (01) ==
LOC: ED 08:31
DX: R10.13 Epigastric pain (principal); I11.0 Hypertensive heart disease with heart failure; I50.9 Heart failure, unspecified; I25.2 Old myocardial infarction; J44.9 Chronic obstructive pulmonary disease, unspecified; Z87.891 Personal history of nicotine dependence; Z95.0 Presence of cardiac pacemaker; Z95.5 Presence of coronary angioplasty implant and graft; Z79.52 Long term (current) use of systemic steroids; Z79.899 Other long term (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
CPT/HCPCS: 74022; 93005; 93010; 99285-25; J7512

== ENCOUNTER 2022-04-09 11:41 | Inpatient (IN) | payer OTHER ==
[~2022-04-09] VITALS: Ht 175.3 cm; Wt 88.2 kg
[~2022-04-09 11:41] MED LIST changes: -ASPIR-LOW81 MG PO; +LO-DOSE ASPIRIN81 MG PO
[2022-04-10] MEDS ORDERED: ISOSORBIDE DINI10 MG PO (07:45)
[2022-04-10] MEDS ORDERED: IPRAT-ALBUT 0.5-3 ML INH (10:11)
[2022-04-10] MEDS ORDERED: JARDIANCE25 MG PO (10:15)
[2022-04-10] MEDS ORDERED: GABAPENTIN300 MG PO (10:17)
[2022-04-10] MEDS ORDERED: MECLIZINE HCL12.5 MG PO (10:20)
[2022-04-10] MEDS ORDERED: NARCAN4 MG NAS (10:22)
[2022-04-10] MEDS ORDERED: ULTRAM50 MG PO (10:26)
[2022-04-14] MEDS ORDERED: TORSEMIDE20 MG PO (17:25)
[2022-04-14] MEDS ORDERED: METOLAZONE2.5 MG PO ×2 (17:26)
== END 2022-04-14 17:35 | disposition home or self-care (01) | DRG 293 ==
LOC: MS 11:41
PROVIDERS: ADMIT Internal Medicine; ATTEND Internal Medicine
DX: I50.23 Acute on chronic systolic (congestive) heart failure (principal); I25.10 Atherosclerotic heart disease of native coronary artery without angina pectoris; E11.22 Type 2 diabetes mellitus with diabetic chronic kidney disease; E78.00 Pure hypercholesterolemia, unspecified; E79.0 Hyperuricemia without signs of inflammatory arthritis and tophaceous disease; N18.32 Chronic kidney disease, stage 3b; G89.4 Chronic pain syndrome; M25.50 Pain in unspecified joint; D63.1 Anemia in chronic kidney disease; E03.8 Other specified hypothyroidism; Z20.822 Contact with and (suspected) exposure to COVID-19; F41.9 Anxiety disorder, unspecified; Z79.82 Long term (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; Z79.899 Other long term (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; Z79.02 Long term (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 of antithrombotics/antiplatelets; Z79.891 Long term (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 of opiate analgesic; Z79.51 Long term (current) use of inhaled steroids; Z79.52 Long term (current) use of systemic steroids
CPT/HCPCS: 36415; 71045; 80048; 80053; 83036; 83735; 83880; 85025; 93306; 94640; 94660; 94760; 94762; A9270; C9803; J1650; J1940; J3475; J3490; U0003

== ENCOUNTER 2022-05-09 20:15 | Inpatient (IN) | payer OTHER, MEDICARE ==
[~2022-05-09] VITALS: Ht 175.3 cm; Wt 88.0 kg
[~2022-05-09 20:15] MED LIST changes: +ISOSORBIDE DINI10 MG PO; +JARDIANCE25 MG PO
--- OUTSIDE RECORDS SUMMARY | 2022-05-09 20:18 | XMS ---
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 [employer] Events 1 event(s) in the past 18 months Most recent security events: Elopement at [facility] 04/10/2021 11:03 - Other Details: PATIENT LWBS CRITERIA MET - [facility] - Has Care Guidelines - Group Notification - 6 ED Visits in 6 Months CARE PROVIDERS EDWARD FELICIANO Family Medicine 04/04/2019-Current PHONE: Unknown LUCY HERNANDEZ [facility] 06/22/2018-Current PHONE: Unknown KIMMIE GONZALEZ Internal Medicine 01/24/2021-Current PHONE: Unknown JEROMY HERNANDES Internal Medicine: Pulmonary Disease 10/18/2018-Current PHONE: Unknown Ananda has no Care Guidelines for this patient. Care History Medical/Surgical 11/04/2021 [facility] \T\nbsp; Care Recommendation: \T\nbsp;\T\nbsp;\T\nbsp;\T\nbsp;\T\nbsp;\T\nbsp; \T\nbsp;\T\nbsp; PLEASE REVIEW MESHAP - ANANDA \T\nbsp;\T\nbsp;\T\nbsp;\T\nbsp;\T\ nbsp;\T\nbsp;\T\nbsp;\T\nbsp; USE EXTREME CAUTION IN GIVING NARCOTICS. \T\ nbsp;\T\nbsp;\T\nbsp;\T\nbsp;\T\nbsp;\T\nbsp;\T\nbsp;\T\nbsp; Avoid Discharge Narcotic prescriptions if at all possible. Physician discretion. 11/03/2021 [facility] - PATIENT WAS REFERRED TO [facility] 12/21/20.NEXT APT WITH THE PAIN CLINIC WILL BE ON 03/06/21 AND THEN THE PAIN CONTRACT WILL BE ESTABLISHED. - PATIENT HAS TWO PRIMARY CARE PHYSICIANS- DR GONZALEZ AND DR FELICIANO AT [facility]. PLEASE CONTACT [facility] BEFORE PRESCRIBING PAIN MEDICATION. PROVIDER DISCRETION. 10/14/2021 [facility] Follow up with Dr. Gonzalez on 10/24/2021. E.D. VISIT COUNT (12 MO.) [address] [facility] TOTAL 19 NOTE: Visits indicate total known visits. 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 - Heart failure, unspecified - Epigastric pain - Chronic obstructive pulmonary disease, unspecified 03/18/2022 21:29 [facility] TYPE: Emergency COMPLAINT: - CHEST PAIN DIAGNOSES: - exterminator termite (current) use of systemic steroids - Shortness of breath - jail (current) use of aspirin - Presence of coronary angioplasty implant and graft - Heart failure, unspecified - Other longterm (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 - jail (current) use of anticoagulants - Chronic obstructive pulmonary disease with (acute) exacerbation - Presence of cardiac pacemaker - Hypertensive heart disease with heart failure 03/18/2022 10:46 [facility] TYPE: Emergency COMPLAINT: - DAYANARA DIAGNOSES: - Personal history of nicotine dependence - Contact with and (suspected) exposure to COVID-19 - Old myocardial infarction - Shortness of breath - Other longterm (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 - Hypertensive heart disease with heart failure - exterminator termite (current) use of aspirin - Chronic obstructive pulmonary disease, unspecified - Heart failure, unspecified - Gout, unspecified 03/12/2022 18:27 [facility] TYPE: Emergency COMPLAINT: - DIFFICULTY BREATHING DIAGNOSES: - exterminator termite (current) use of aspirin - Personal history of transient ischemic attack (TIA), and cerebral infarction without residual deficits - Old myocardial infarction - Dizziness and giddiness - Heart failure, unspecified - Personal history of nicotine dependence - 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 - Hypertensive heart disease with heart failure - Chronic obstructive pulmonary disease, unspecified 03/06/2022 07:44 [facility] TYPE: Emergency COMPLAINT: - SOB 02/27/2022 09:11 [facility] TYPE: Emergency COMPLAINT: - SOB DIAGNOSES: - Old myocardial infarction - Shortness of breath - Other longterm (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 - Hypertensive heart disease with heart failure - Heart failure, unspecified - Chronic obstructive pulmonary disease, unspecified - Pure hypercholesterolemia, unspecified - Personal history of nicotine dependence - Gout, unspecified - jail (current) use of aspirin 02/13/2022 03:57 [facility] TYPE: Emergency COMPLAINT: - SOB 02/02/2022 13:07 [facility] TYPE: Emergency COMPLAINT: - DIFFICULTY BREATHING, CHEST PAIN DIAGNOSES: - Chest pain, unspecified - Chronic obstructive pulmonary disease, unspecified - Other longterm (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 - Heart failure, unspecified - Personal history of nicotine dependence - Dyspnea, unspecified - Gout, unspecified - Pure hypercholesterolemia, unspecified - Old myocardial infarction - jail (current) use of aspirin - Hypertensive heart disease with heart failure 01/29/2022 01:35 [facility] TYPE: Emergency COMPLAINT: - SOB 01/26/2022 09:36 [facility] TYPE: Emergency COMPLAINT: - DAYANARA DIAGNOSES: - exterminator termite (current) use of aspirin - Personal history of nicotine dependence - Heart failure, unspecified - Old myocardial infarction - Other longterm (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 - Hypertensive heart disease with heart failure - Gout, unspecified - Dyspnea, unspecified - Chronic obstructive pulmonary disease, unspecified 12/27/2021 16:47 [facility] TYPE: Emergency COMPLAINT: - CONGESTION DIAGNOSES: - Personal history of nicotine dependence - Acute sinusitis, unspecified - Chronic obstructive pulmonary disease, unspecified - Hypertensive heart disease with heart failure - Other longterm (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 - Old myocardial infarction - Primary osteoarthritis, other specified site - jail (current) use of aspirin - Heart failure, unspecified - Gout, unspecified - Pure hypercholesterolemia, unspecified 11/01/2021 13:04 [facility] TYPE: Emergency COMPLAINT: - PAIN IN LEGS DIAGNOSES: - Personal history of nicotine dependence - Old myocardial infarction - Pain in left foot - jail (current) use of aspirin - Unspecified osteoarthritis, unspecified site - Gout, unspecified - Chronic obstructive pulmonary disease, unspecified - Unspecified mononeuropathy of left lower limb - Other longterm (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 - Heart failure, unspecified - Pure hypercholesterolemia, unspecified - Hypertensive heart disease with heart failure 10/12/2021 00:11 [facility] TYPE: Emergency COMPLAINT: - SORE THROAT, SHORTNESS OF BREATH DIAGNOSES: - Hypertensive heart disease with heart failure - jail (current) use of aspirin - Encounter for immunization - Gout, unspecified - Pure hypercholesterolemia, unspecified - Heart failure, unspecified - 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 TYPE: Emergency COMPLAINT: - WEAKNESS DIAGNOSES: - Chronic obstructive pulmonary disease, unspecified - Old myocardial infarction - Heart failure, unspecified - Other longterm (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 - Hypertensive heart disease with heart failure - Gout, unspecified - Weakness - Personal history of nicotine dependence - jail (current) use of aspirin 08/01/2021 03:30 [facility] TYPE: Emergency COMPLAINT: - DIFFICULTY BREATHING DIAGNOSES: - Gout, unspecified - Contact with and (suspected) exposure to COVID-19 - Hypertensive heart disease with heart failure - Shortness of breath - Non-ST elevation (NSTEMI) myocardial infarction - Old myocardial infarction - Chronic obstructive pulmonary disease, unspecified - 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 - Personal history of nicotine dependence - Pure hypercholesterolemia, unspecified - exterminator termite (current) use of aspirin - Heart failure, unspecified 07/21/2021 07:03 [facility] TYPE: Emergency COMPLAINT: - DIFFICULTY BREATHING DIAGNOSES: - Hypertensive heart disease with heart failure - Presence of automatic (implantable) cardiac defibrillator - Acquired absence of other specified parts of digestive tract - Shortness of breath - Pure hypercholesterolemia, unspecified - Heart failure, unspecified - Personal history of nicotine dependence - Chronic obstructive pulmonary disease with (acute) exacerbation - Presence of coronary angioplasty implant and graft - 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 - exterminator termite (current) use of aspirin - Old myocardial infarction 06/20/2021 08:18 [facility] TYPE: Emergency COMPLAINT: - SOB 05/19/2021 14:56 [facility] TYPE: Emergency COMPLAINT: - RIGHT ELBOW PAIN DIAGNOSES: - jail (current) use of aspirin - Other longterm (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 - Chronic obstructive pulmonary disease, unspecified - Old myocardial infarction - Gout, unspecified - Heart failure, unspecified - Hypertensive heart disease with heart failure - Olecranon bursitis, right elbow - Personal history of nicotine dependence INPATIENT VISIT TRACKING (12 MO.) 04/09/2022 12:[address] [facility] [place] TYPE: Medical Surgical COMPLAINT: - DECOMPENSATED HEART FAILURE DIAGNOSES: - Acute on chronic systolic (congestive) heart failure - Pure hypercholesterolemia, unspecified - exterminator termite (current) use of aspirin - Other specified hypothyroidism - Type 2 diabetes mellitus with diabetic chronic kidney disease - Other specified hypothyroidism - Chronic kidney disease, stage 3b - jail (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 of antithrombotics/antiplatelets - Contact with and (suspected) exposure to COVID-19 - Anemia in chronic kidney disease - Anxiety disorder, unspecified - Anemia in chronic kidney disease - jail (current) use of inhaled steroids - Atherosclerotic heart disease of [place] coronary artery without angina pectoris - Hyperuricemia without signs of inflammatory arthritis and tophaceous disease - Chronic pain syndrome - 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 - Chronic kidney disease, stage 3b - jail (current) use of aspirin - Pain in unspecified joint - exterminator termite (current) use of inhaled steroids - Pure hypercholesterolemia, unspecified - Anxiety disorder, unspecified - exterminator termite (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 of antithrombotics/antiplatelets - Chronic kidney disease, stage 4 (severe) - jail (current) use of systemic steroids - Pain in unspecified joint - Other longterm (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 - jail (current) use of opiate analgesic - Hyperuricemia without signs of inflammatory arthritis and tophaceous disease - Atherosclerotic heart disease of [place] coronary artery without angina pectoris - exterminator termite (current) use of opiate analgesic - jail (current) use of systemic steroids - Type 2 diabetes mellitus with diabetic chronic kidney disease - Chronic pain syndrome - Contact with and (suspected) exposure to COVID-19 03/06/2022 07:45 [facility] TYPE: Observation COMPLAINT: - ACUTE ON CHRONIC SYSTOLIC CONGESTIVE HEART FAILURE DIAGNOSES: - Contact with and (suspected) exposure to COVID-19 - Chronic obstructive pulmonary disease, unspecified - Presence of aortocoronary bypass graft - Gout, unspecified - Presence of automatic (implantable) cardiac defibrillator - Personal history of transient ischemic attack (TIA), and cerebral infarction without residual deficits - Prediabetes - Chronic pain syndrome - Acute on chronic systolic (congestive) heart failure - Atherosclerotic heart disease of [place] coronary artery without angina pectoris - Presence of coronary angioplasty implant and graft - Personal history of nicotine dependence - Acute respiratory failure with hypoxia - Unspecified osteoarthritis, unspecified site - Hypertensive heart disease with heart failure - Old myocardial infarction - Hyperlipidemia, unspecified 02/13/2022 06:17 [facility] TYPE: Critical Care COMPLAINT: - CHF EXCERBATION DIAGNOSES: - Hypertensive heart and chronic kidney disease with heart failure and stage 1 through stage 4 chronic kidney disease, or unspecified chronic kidney disease - Anemia in chronic kidney disease - Prediabetes - Acquired absence of other specified parts of digestive tract - Pure hypercholesterolemia, unspecified - exterminator termite (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 of antithrombotics/antiplatelets - Pain in unspecified joint - Atherosclerotic heart disease of [place] coronary artery without angina pectoris - Ischemic cardiomyopathy - Pure hypercholesterolemia, unspecified - Old myocardial infarction - Gout, unspecified - exterminator termite (current) use of aspirin - Hypertensive heart and chronic kidney disease with heart failure and stage 1 through stage 4 chronic kidney disease, or unspecified chronic kidney disease - Contact with and (suspected) exposure to COVID-19 - jail (current) use of aspirin - Heart failure, unspecified - Chronic kidney disease, stage 4 (severe) - Other specified hypothyroidism - Chronic obstructive pulmonary disease, unspecified - Other specified postprocedural states - Other specified postprocedural states - Anemia in chronic kidney disease - Acquired absence of other specified parts of digestive tract - Atherosclerotic heart disease of [place] coronary artery without angina pectoris - Presence of coronary angioplasty implant and graft - Prediabetes - Other longterm (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 - Chronic kidney disease, stage 4 (severe) - Chronic obstructive pulmonary disease, unspecified - Old myocardial infarction - Presence of coronary angioplasty implant and graft - Hyperlipidemia, unspecified - jail (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 of antithrombotics/antiplatelets - Chronic pain syndrome - Hyperlipidemia, unspecified - Gout, unspecified - Pain in unspecified joint - Acute kidney failure, unspecified - Acute on chronic systolic (congestive) heart failure - Other longterm (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 - Ischemic cardiomyopathy - Hyperuricemia without signs of inflammatory arthritis and tophaceous disease - Other specified hypothyroidism - Acute kidney failure, unspecified - Acute on chronic systolic (congestive) heart failure - Chronic pain syndrome - Contact with and (suspected) exposure to COVID-19 - Hyperuricemia without signs of inflammatory arthritis and tophaceous disease 01/29/2022 01:[address] [facility] TYPE: Observation COMPLAINT: - RESPIRATORY FAILURE,CHF DIAGNOSES: - jail (current) use of aspirin - Pure hypercholesterolemia, unspecified - Anemia in chronic kidney disease - Shortness of breath - Chronic pain syndrome - Hyperlipidemia, unspecified - Personal history of nicotine dependence - Presence of coronary angioplasty implant and graft - Old myocardial infarction - Hypertensive heart and chronic kidney disease with heart failure and stage 1 through stage 4 chronic kidney disease, or unspecified chronic kidney disease - Atherosclerotic heart disease of [place] coronary artery without angina pectoris - Contact with and (suspected) exposure to COVID-19 - Hypothyroidism, unspecified - Acute respiratory failure, unspecified whether with hypoxia or hypercapnia - Chronic kidney disease, stage 4 (severe) - Pain in unspecified joint - Chronic obstructive pulmonary disease, unspecified - Acute on chronic systolic (congestive) heart failure - Prediabetes [facility] DIAGNOSES: - Chronic systolic (congestive) heart failure - Ischemic cardiomyopathy - elevated troponin 06/20/2021 08:19 [facility] TYPE: Observation COMPLAINT: - CONGESTIVE HEART FAILURE DIAGNOSES: - Chronic obstructive pulmonary disease, unspecified - Gout, unspecified - Personal history of nicotine dependence - Old myocardial infarction - Presence of automatic (implantable) cardiac defibrillator - Chronic kidney disease, stage 4 (severe) - Contact with and (suspected) exposure to COVID-19 - Presence of other vascular implants and grafts - Hypertensive heart and chronic kidney disease with heart failure and stage 1 through stage 4 chronic kidney disease, or unspecified chronic kidney disease - Acute respiratory failure with hypoxia - Acute on chronic systolic (congestive) heart failure [email or web address]
--- NOTE | 2022-05-10 03:23 | NUR ---
PATIENT TRANSPORTED TO CCU BY STRETCHER SITTING UP IN BED AT 90 DEGREE ANGLE. ONCE IN ROOM PATIENT WAS ABLE TO STAND AND TAKES STEPS OVER TO BED, TOLERATING ACTIVITY WELL WITH MINIMAL SOB. BIPAP SET UP IN ROOM FOR PATIENT TO USE, ABLE TO TAKE ON AND OFF NEEDED. PATIENT APPEARS CALM, BREATHING EASY. LUNG SOUNDS DIMINISHED IN BASES. PATIENT HAS PACEMAKER, ON TELE PACED RYTHEM HR 78. PATIENT TRIPODING AT BEDSIDE, STATES " I LIKE TO SIT AT THE EDGE OF THE BED, THIS IS HOW I RODEO" PROVIDED PATIENT WITH URINAL AND SNACK. CALL LIGHT WITHIN REACH. PATIENT ORIENTED TO ROOM, NO QUESTIONS OR CONCERNS AT THIS TIME WITH POC.
--- NOTE | 2022-05-10 05:10 | NUR ---
PATIENT CONTINUES TO SIT UP IN BED, BREATHING REGULAR AND EVEN. OXYGEN 4L NC, SATURATION 93%. PROVIDED RECLINER, PATIENT KINDLY DECLINED. LAB IN ROOM DRAWING MORNING LABS. USING URINAL AT BEDSIDE APPROPRIATELY.
--- NOTE | 2022-05-10 06:30 | NUR ---
PATIENT CONTINUES TO SIT BEDSIDE RESTING HEAD ON BEDSIDE TABLE. PATIENT REFUSES TO REST BACK IN BED OR SIT IN RECLINER. OXYGEN SATURATION 100% ON 4LNC PATIENT BREATHING EVEN AND REGULAR. NO COMPLAINTS OF SOB. TITRATED OXYGEN TO 2.5L NC OXYGEN SATURATION 98% RR 18
--- NOTE | 2022-05-10 08:08 | NUR ---
PATIENT SITTING UP ON EDGE OF BED PER HIS NORMAL ROUTINE WHEN HE IS HERE IN HOSPITAL. PT STATES, "I'M FEELING GREAT!" WHEN ASKED HOW HE IS DOING. PT RECALLS FEELING AWFUL AND "ALMOST DYING" LAST NIGHT WHEN HE WAS IN ER. DISCUSSED PLAN OF CARE WITH PATIENT. DIET ADVANCED TO 2 GM SODIUM WITH A FLUID RESTRICTION. DAILY WEIGHT TO BE OBTAINED. PT VOIDS 700 ML TO URINAL. RT IN ROOM TO GIVE BREATHING TX. LUNGS AREA FAIRLY CLEAR THROUGHOUT AT THIS TIME AND PT DOES NOT APPEAR IN ANY ACUTE RESP DISTRESS AT THIS TIME. LEGS DO HAVE SOME PITTING EDEMA, 1-2+ IN FEET/ANKLES AND EXTENDS UP TO PRETIBIAL. PT ALSO NOTES HE HASN'T HAD THEM ELEVATED YET. HR IN THE 70s, PACED. WILL CONTINUE TO MONITOR CLOSELY. PT HASN'T WORN BIPAP SINCE ARRIVING IN CCU WHICH WAS AROUND 0300 PER REPORT.
--- NOTE | 2022-05-10 08:46 | NUR ---
PATIENT BACK IN BED AND NOT SITTING UP IN TRI POD POSITION AND SP02 STARTS TO DROP ON THE 2.5 L, DOWN TO LOW 79%. PT AGREEABLE TO WEAR BIPAP AND IS NOW AT 14/6 AND 40%. STILL WAITING FOR PATIENT'S BREAKFAST TO ARRIVE.
--- NOTE | 2022-05-10 09:11 | NUR ---
KEELEYG 408 AT THIS TIME. WILL DISCUSS WITH MD THIS MORNING STARTING MEDICATIONS FOR PT'S DM.
--- NOTE | 2022-05-10 09:56 | NUR ---
PATIENT BACK ON BIPAP AT THIS TIME TO REST. PT FINISHED HIS BREAKFAST. WILL CONTINUE TO MONITOR. PT REQUESTING GABAPENTIN FOR HIS LEG PAINS.
--- NOTE | 2022-05-10 10:17 | NUR ---
DR. GONZALEZ IN ROOM TO SEE PATIENT AT THIS TIME. PT HAS BEEN RESTING/NAPPING ON BIPAP OF 14/5 AND 40%. WILL CONTINUE AMY ONITOR.
[2022-05-10] MEDS ORDERED: ACID REDUCER10 MG PO (12:57)
--- NOTE | 2022-05-10 13:21 | NUR ---
pt hs used bedside commode had small hard formed stool.
--- NOTE | 2022-05-10 14:11 | NUR ---
PATIENT'S ARRIVES AND BRINGS HIS HOME WHEELCHAIR. HAS HAS BEEN CONTINUING TO SIT AT EDGE OF BED WITH LEGS DOWN. MORE POTASSIUM DUE SOON FOR PATIENT. IV MAG HAS COMPLETED. CONTINUE TO MONITOR.
--- NOTE | 2022-05-10 15:21 | NUR ---
PATIENT UP IN AN TO AMBULATE X2 LAPS AROUND. PT USES HIS OWN WHEELCHAIR TO SUPPORT SELF WHILE WALKING AND REMAINS ON 4 L. PT THEN GIVEN HIS SCHEDULED MEDS, INCLUDING ANOTHER 100 MG LASIX. PT NOW BACK IN BED ON CPAP OF 12 AND 40%. PT'S REMAINS IN ROOM. CONTINUE TO MONITOR.
--- NOTE | 2022-05-10 17:25 | NUR ---
DR. GONZALEZ IN TO SEE PATIENT AGAIN THIS AFTERNOON, AND DECISION MADE TO KEEP PATIENT OVERNIGHT, EVAL IN THE AM, AND PROBABLE/LIKELY D/C TOMORROW. PT HAS MIXED EMOTIONS ABOUT THIS, BECOMING SOMEWHAT LABILE AND UPSET, BUT ALSO SAYING, "YOU'RE THE DOC, YOU KNOW WHAT'S BEST AND THAT'S WHAT I'LL DO." PT TEARFUL ABOUT NOT BEING ABLE TO SEE HIS DOG TONIGHT. PT'S GOING TO BRING IN THE DOG FOR PATIENT TO SEE, WHICH MAKES HIM VERY HAPPY. PT CONTINUES TO VOID TO URINAL, CLEAR YELLOW URINE. LABS TO BE DRAWN THIS EVENING PER DR. GONZALEZ. PT'S CBG >[address] GONZALEZ AWARE - COVERED WITH SS INSULIN.
--- NOTE | 2022-05-10 20:45 | NUR ---
DR GONZALEZ NOTIFIED OF BG BEING 510. ORDERS RECIEVED FOR 4 UNITS OF HUMALOG IN ADDITION TO S/S.
--- NOTE | 2022-05-10 21:49 | NUR ---
REPORT RECEIVED FROM [facility]. PT IS SITTING UP AT BEDSIDE, IN TO SEE HIM, WAS JUST IN TO SEE HIM WITH HIS DOGS. PLAN TO DRAW LABS AT 2200 DISCUSSED WITH PT, PT HAS NO NEEDS AT THIS TIME. LAB IN TO DRAW.
--- NOTE | 2022-05-10 22:30 | NUR ---
PT ASSISTED WITH GETTING UP AND WALKING THE HALLS OF CCU PER HIS REQUEST "TO HELP SETTLE MY LEGS DOWN". WALKED WITH PUSHING HIS WHEELCHAIR, PT HAD O2/4L IN PLACE, HR AND O2 SATS REMAINED WNL. PT THEN BACK TO BED. IV SITE REDRESSED THE SITE SEEMED TO BE OOZING A LITTLE BLOOD, ALTHOUGH IT STILL FLUSHES WELL. PT WILL CALL WHEN HE IS READY TO PLACE CPAP FOR THE NIGHT.
--- NOTE | 2022-05-10 23:00 | NUR ---
PT REQUESTS NEB TX AND TO HAVE CPAP PLACED TO TRY TO SLEEP FOR THE NIGHT. PLAN FOR BLOOD SUGAR CHECK AT MIDNIGHT.
--- NOTE | 2022-05-10 23:09 | NUR ---
RT IN TO DO ROUNDS ON PT.
--- NOTE | 2022-05-10 23:52 | NUR ---
PT CALLS TO ASK FOR PAIN MEDICATION FOR HIS LEG PAIN, 1 NORCO GIVEN. BLOOD SUGAR 413, 13 UNITS OF INSULIN GIVEN. NO OTHER REQUESTS.
--- NOTE | 2022-05-11 01:20 | NUR ---
PT CALLS TO ASK IF IT IS TIME FOR MORE NORCO OR GABAPENTIN. INFORMED HIM IT IS TOO EARLY, PT REPORTS NORCO NOT HELPING "IT DOESN'T TOUCH MY NERVE PAIN". DR GONZALEZ AWARE, NO NEW ORDERS AT THIS TIME. PT AGREES TO LIE BACK IN BED WITH CPAP BACK ON AND TRY TO GO TO SLEEP.
--- NOTE | 2022-05-11 02:31 | NUR ---
PT HAS BEEN RESTFUL FOR APPROX THE LAST HOUR, CONT TO WEAR CPAP.
--- NOTE | 2022-05-11 04:50 | NUR ---
PT AWAKE, REMOVED CPAP AND IS NOW SITTING UP. STATES HE IS DONE SLEEPING. ASSISTED WITH BRUSHING HIS TEETH AND WASHING HIS FACE, THEN LIED BACK IN BED TO WATCH TV. VERY EXCITED TO GO HOME TODAY
--- NOTE | 2022-05-11 06:45 | NUR ---
PT SITTING UP WATCHING TV, TOOK THYROID MED, WANTING SOME COFFEE, LOOKING FORWARD TO GOING HOME TODAY.
--- NOTE | 2022-05-11 07:41 | NUR ---
PATIENT UP AND WANTING TO AMBULATE IN AN. HELPED HIM UP TO DO THIS. PT EAGER TO GO HOME. LUNGS CLEAR. SWELLING IMPROVED FROM YESTERDAY IN FEET/ANKLES. PT DOWN A FEW LBS FROM YESTERDAY WELL.
--- NOTE | 2022-05-11 09:04 | NUR ---
PATIENT SITTING ON EDGE OF BED WITH HIS . PT IS EAGER TO D/C HOME TODAY. AM MEDS GIVEN W/O COMPLICATION. EDEMA IN LEGS IS BETTER THAN YESTERDAY. PT REMAINS ON 4L O2. WILL CONTINUE TO MONITOR.
--- NOTE | 2022-05-11 10:43 | NUR ---
DR. GONZALEZ IN TO SEE PATIENT AT THIS TIME. PLAN OF CARE BEING DISCUSSED. PT'S IN ROOM STILL.
[2022-05-11] MEDS ORDERED: POTASSIUM CHLO10 ME1 PO (11:02)
[2022-05-11] MEDS ORDERED: METOLAZONE2.5 MG PO (11:03)
[2022-05-11] MEDS ORDERED: BISACODYL5 MG PO (11:03)
[2022-05-11] MEDS ORDERED: ALOGLIPTIN12.5 MG PO (11:04)
--- NOTE | 2022-05-11 11:04 | NUR ---
PATIENT WILL D/C HOME TODAY WITH SPECIFIC INSTRUCTIONS ON WHEN AND HOW TO TAKE HIS DIURETICS. IV SITE D/C AND VITALS TAKEN. CONTINUE TO MONITOR.
== END 2022-05-11 11:40 | disposition home or self-care (01) | DRG 291 ==
LOC: ED 20:15 → CCU 05-10 02:07
PROVIDERS: ADMIT Internal Medicine; ATTEND Internal Medicine
PROC: 5A09357 Assistance with Respiratory Ventilation, Less than 24 Consecutive Hours, Continuous Positive Airway Pressure (ICD-10-PCS; principal; 2022-05-10)
DX: I13.0 Hypertensive heart and chronic kidney disease with heart failure and stage 1 through stage 4 chronic kidney disease, or unspecified chronic kidney disease (principal); I50.23 Acute on chronic systolic (congestive) heart failure; N17.9 Acute kidney failure, unspecified; J44.1 Chronic obstructive pulmonary disease with (acute) exacerbation; N18.32 Chronic kidney disease, stage 3b; E11.65 Type 2 diabetes mellitus with hyperglycemia; E11.22 Type 2 diabetes mellitus with diabetic chronic kidney disease; I25.10 Atherosclerotic heart disease of native coronary artery without angina pectoris; E78.00 Pure hypercholesterolemia, unspecified; Z20.822 Contact with and (suspected) exposure to COVID-19; E79.0 Hyperuricemia without signs of inflammatory arthritis and tophaceous disease; G89.4 Chronic pain syndrome; M10.9 Gout, unspecified; D63.1 Anemia in chronic kidney disease; E03.9 Hypothyroidism, unspecified; M25.50 Pain in unspecified joint; Z99.81 Dependence on supplemental oxygen; I25.2 Old myocardial infarction; Z86.73 Personal history of transient ischemic attack (TIA), and cerebral infarction without residual deficits; Z95.5 Presence of coronary angioplasty implant and graft; Z87.891 Personal history of nicotine dependence
CPT/HCPCS: 36415; 71045; 80048; 80053; 82803; 83735; 83880; 85025; 87502; 94640; 94660; 96374; 96375; 96376; 99285-25; A9270; C9803; J0456; J1650; J1815; J1940; J2930; J3475; U0003

== ENCOUNTER 2022-10-01 23:59 | Emergency (ER) | payer OTHER, MEDICARE ==
[~2022-10-01] VITALS: Ht 175.3 cm; Wt 96.6 kg
[~2022-10-01 23:59] MED LIST changes: +ACID REDUCER10 MG PO; +ALDACTONE25 MG PO; +ALOGLIPTIN12.5 MG PO; +GLIPIZIDE ER2.5 MG PO
--- OUTSIDE RECORDS SUMMARY | 2022-10-02 00:03 | XMS ---
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 Security Client Relations Representative Events 1 event(s) in the past 18 months Most recent security events: Elopement at [facility] 04/10/2021 11:03 - Other Details: PATIENT LWBS CRITERIA MET - Group Notification - [facility] - Has Care Guidelines CARE PROVIDERS EDWARD FELICIANO Family Medicine 04/04/2019-Current PHONE: Unknown LUCY HERNANDEZ [facility] 06/22/2018-Current PHONE: Unknown KIMMIE GONZALEZ Internal Medicine 01/24/2021-Current PHONE: Unknown JEROMY HERNANDES Internal Medicine: Pulmonary Disease 10/18/2018-Current PHONE: Unknown Ananda has no Care Guidelines for this patient. Care History Medical/Surgical 11/04/[address] [facility] \T\nbsp; Care Recommendation: \T\nbsp;\T\nbsp;\T\nbsp;\T\nbsp;\T\nbsp;\T\nbsp; \T\nbsp;\T\nbsp; PLEASE REVIEW MESHAP - ANANDA \T\nbsp;\T\nbsp;\T\nbsp;\T\nbsp;\T\ nbsp;\T\nbsp;\T\nbsp;\T\nbsp; USE EXTREME CAUTION IN GIVING NARCOTICS. \T\ nbsp;\T\nbsp;\T\nbsp;\T\nbsp;\T\nbsp;\T\nbsp;\T\nbsp;\T\nbsp; Avoid Discharge Narcotic prescriptions if at all possible. Physician discretion. 11/03/[address] [facility] - PATIENT WAS REFERRED TO [facility] 12/21/20.NEXT APT WITH THE PAIN CLINIC WILL BE ON 03/06/21 AND THEN THE PAIN CONTRACT WILL BE ESTABLISHED. - PATIENT HAS TWO PRIMARY CARE PHYSICIANS- DR GONZALEZ AND DR FELICIANO AT [facility]. PLEASE CONTACT [facility] BEFORE PRESCRIBING PAIN MEDICATION. PROVIDER DISCRETION. 10/14/[address] [facility] Follow up with Dr. Gonzalez on 10/24/2021. E.D. VISIT COUNT (12 MO.) [facility]i TOTAL 16 NOTE: Visits indicate total known visits. ED/UCC VISIT TRACKING (12 MO.) 10/01/2022 23:59 [facility] TYPE: Emergency COMPLAINT: - SOB 06/28/2022 04:23 [facility] TYPE: Emergency COMPLAINT: - SOB DIAGNOSES: - nursing home (current) use of aspirin - Other [facility] (current) drug therapy - Contact with and (suspected) exposure to COVID-19 - Acute pulmonary edema - Hypertensive heart disease with heart failure - Chronic obstructive pulmonary disease with (acute) exacerbation - Chronic systolic (congestive) heart failure - continuous churn buttermaker (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 of antithrombotics/antiplatelets - Hyperlipidemia, unspecified - Personal history of nicotine dependence - Old myocardial infarction - Shortness of breath 05/09/2022 20:15 [facility] TYPE: Emergency COMPLAINT: - SOB 03/19/2022 08:32 [facility] TYPE: Emergency COMPLAINT: - SOB DIAGNOSES: - Presence of cardiac pacemaker - Personal history of nicotine dependence - Other [facility] (current) drug therapy - Heart failure, unspecified - Epigastric pain - Chronic obstructive pulmonary disease, unspecified - Presence of coronary angioplasty implant and graft - Old myocardial infarction - Hypertensive heart disease with heart failure - nursing home (current) use of systemic steroids 03/18/2022 21:29 [facility] TYPE: Emergency COMPLAINT: - CHEST PAIN DIAGNOSES: - Heart failure, unspecified - Other [facility] (current) drug therapy - continuous churn buttermaker (current) use of anticoagulants - Chronic obstructive pulmonary disease with (acute) exacerbation - Presence of cardiac pacemaker - Hypertensive heart disease with heart failure - continuous churn buttermaker (current) use of systemic steroids - Shortness of breath - continuous churn buttermaker (current) use of aspirin - Presence of coronary angioplasty implant and graft 03/18/2022 10:46 [facility] TYPE: Emergency COMPLAINT: - DAYANARA DIAGNOSES: - 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 - Hypertensive heart disease with heart failure - nursing home (current) use of aspirin - Chronic obstructive pulmonary disease, unspecified - Heart failure, unspecified - Gout, unspecified - Personal history of nicotine dependence - Contact with and (suspected) exposure to COVID-19 - Old myocardial infarction - Shortness of breath 03/12/2022 18:27 [facility] TYPE: Emergency COMPLAINT: - DIFFICULTY BREATHING DIAGNOSES: - Heart failure, unspecified - Personal history of nicotine dependence - Other ch[facility] (current) drug therapy - Hypertensive heart disease with heart failure - Chronic obstructive pulmonary disease, unspecified - continuous churn buttermaker (current) use of aspirin - Personal history of transient ischemic attack (TIA), and cerebral infarction without residual deficits - Old myocardial infarction - Dizziness and giddiness 03/06/2022 07:44 [facility] TYPE: Emergency COMPLAINT: - SOB 02/27/2022 09:11 [facility] TYPE: Emergency COMPLAINT: - SOB DIAGNOSES: - Heart failure, unspecified - Chronic obstructive pulmonary disease, unspecified - Pure hypercholesterolemia, unspecified - Personal history of nicotine dependence - Gout, unspecified - continuous churn buttermaker (current) use of aspirin - Old myocardial infarction - Shortness of breath - Other ch[facility] (current) drug therapy - Hypertensive heart disease with heart failure 02/13/2022 03:57 [facility] TYPE: Emergency COMPLAINT: - SOB 02/02/2022 13:07 [facility] TYPE: Emergency COMPLAINT: - DIFFICULTY BREATHING, CHEST PAIN DIAGNOSES: - Dyspnea, unspecified - Gout, unspecified - Pure hypercholesterolemia, unspecified - Old myocardial infarction - nursing home (current) use of aspirin - Hypertensive heart disease with heart failure - Chest pain, unspecified - Chronic obstructive pulmonary disease, unspecified - 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 - Heart failure, unspecified - Personal history of nicotine dependence 01/29/2022 01:35 [facility] [place] TYPE: Emergency COMPLAINT: - SOB 01/26/2022 09:36 [facility] TYPE: Emergency COMPLAINT: - DAYANARA DIAGNOSES: - 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 - Hypertensive heart disease with heart failure - Gout, unspecified - Dyspnea, unspecified - Chronic obstructive pulmonary disease, unspecified - nursing home (current) use of aspirin - Personal history of nicotine dependence - Heart failure, unspecified - Old myocardial infarction 12/27/2021 16:47 [facility] TYPE: Emergency COMPLAINT: - CONGESTION DIAGNOSES: - Old myocardial infarction - Primary osteoarthritis, other specified site - nursing home (current) use of aspirin - Heart failure, unspecified - Gout, unspecified - Pure hypercholesterolemia, unspecified - Personal history of nicotine dependence - Acute sinusitis, unspecified - Chronic obstructive pulmonary disease, unspecified - Hypertensive heart disease with heart failure - 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 11/01/2021 13:04 [facility] TYPE: Emergency COMPLAINT: - PAIN IN LEGS DIAGNOSES: - Gout, unspecified - Chronic obstructive pulmonary disease, unspecified - Unspecified mononeuropathy of left lower limb - 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 - Heart failure, unspecified - Pure hypercholesterolemia, unspecified - Hypertensive heart disease with heart failure - Personal history of nicotine dependence - Old myocardial infarction - Pain in left foot - continuous churn buttermaker (current) use of aspirin - Unspecified osteoarthritis, unspecified site 10/12/2021 00:11 [facility] TYPE: Emergency COMPLAINT: - SORE THROAT, SHORTNESS OF BREATH DIAGNOSES: - 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 DIAGNOSES: - Gastrointestinal hemorrhage, unspecified - Other acute kidney failure - Type 2 diabetes mellitus with hyperglycemia - Personal history of other diseases of the circulatory system - Presence of automatic (implantable) cardiac defibrillator - Ischemic cardiomyopathy - Chronic kidney disease, stage 3a - Pulmonary edema, resp failure - Heart failure, unspecified 05/10/2022 02:07 [facility] TYPE: Critical Care COMPLAINT: - CHF EXACERBATION, COPD EXACERBATION DIAGNOSES: - Hyperuricemia without signs of inflammatory arthritis and tophaceous disease - Old myocardial infarction - Contact with and (suspected) exposure to COVID-19 - Old myocardial infarction - Dependence on supplemental oxygen - Chronic obstructive pulmonary disease with (acute) exacerbation - Anemia in chronic kidney disease - Dependence on supplemental oxygen - Contact with and (suspected) exposure to COVID-19 - Pain in unspecified joint - Type 2 diabetes mellitus with diabetic chronic kidney disease - Hypertensive heart and chronic kidney disease with heart failure and stage 1 through stage 4 chronic kidney disease, or unspecified chronic kidney disease - Chronic kidney disease, stage 3b - Type 2 diabetes mellitus with hyperglycemia - Pure hypercholesterolemia, unspecified - Gout, unspecified - Presence of coronary angioplasty implant and graft - Acute on chronic systolic (congestive) heart failure - Chronic obstructive pulmonary disease with (acute) exacerbation - Hypothyroidism, unspecified - Hyperuricemia without signs of inflammatory arthritis and tophaceous disease - Atherosclerotic heart disease of [place] coronary artery without angina pectoris - Gout, unspecified - Pure hypercholesterolemia, unspecified - Personal history of transient ischemic attack (TIA), and cerebral infarction without residual deficits - Atherosclerotic heart disease of [place] coronary artery without angina pectoris - Type 2 diabetes mellitus with diabetic chronic kidney disease - Hypertensive heart and chronic kidney disease with heart failure and stage 1 through stage 4 chronic kidney disease, or unspecified chronic kidney disease - Acute kidney failure, unspecified - Personal history of nicotine dependence - Chronic pain syndrome - Chronic kidney disease, stage 3b - Chronic pain syndrome - Hypothyroidism, unspecified - Anemia in chronic kidney disease - Type 2 diabetes mellitus with hyperglycemia - Pain in unspecified joint - Personal history of nicotine dependence - Personal history of transient ischemic attack (TIA), and cerebral infarction without residual deficits - Presence of coronary angioplasty implant and graft - Acute kidney failure, unspecified 04/09/2022 12:[address] 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 - continuous churn buttermaker (current) use of opiate analgesic - Hyperuricemia without signs of inflammatory arthritis and tophaceous disease - Atherosclerotic heart disease of [place] coronary artery without angina pectoris - nursing home (current) use of opiate analgesic - nursing home (current) use of systemic steroids - Type 2 diabetes mellitus with diabetic chronic kidney disease - Chronic pain syndrome - Contact with and (suspected) exposure to COVID-19 - Acute on chronic systolic (congestive) heart failure - Pure hypercholesterolemia, unspecified - nursing home (current) use of aspirin - Other specified hypothyroidism - Type 2 diabetes mellitus with diabetic chronic kidney disease - Other specified hypothyroidism - Chronic kidney disease, stage 3b - nursing home (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 of antithrombotics/antiplatelets - Contact with and (suspected) exposure to COVID-19 - Anemia in chronic kidney disease - Anxiety disorder, unspecified - Anemia in chronic kidney disease - continuous churn buttermaker (current) use of inhaled steroids - Atherosclerotic heart disease of [place] coronary artery without angina pectoris - Hyperuricemia without signs of inflammatory arthritis and tophaceous disease - Chronic pain syndrome - 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 - Chronic kidney disease, stage 3b 03/06/2022 07:45 [facility] TYPE: Observation COMPLAINT: - ACUTE ON CHRONIC SYSTOLIC CONGESTIVE HEART FAILURE DIAGNOSES: - Presence of coronary angioplasty implant and graft - Personal history of nicotine dependence - Acute respiratory failure with hypoxia - continuous churn buttermaker (current) use of aspirin - Unspecified osteoarthritis, unspecified site - Personal history of transient ischemic attack (TIA), and cerebral infarction without residual deficits - Chronic pain syndrome - Hyperlipidemia, unspecified - Hypertensive heart disease with heart failure - nursing home (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 of antithrombotics/antiplatelets - Chronic obstructive pulmonary disease, unspecified - Presence of aortocoronary bypass graft - Gout, unspecified - Presence of automatic (implantable) cardiac defibrillator - Hormone replacement therapy - Old myocardial infarction - Prediabetes - 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 - Contact with and (suspected) exposure to COVID-19 - Acute on chronic systolic (congestive) heart failure - Atherosclerotic heart disease of [place] coronary artery without angina pectoris 02/13/2022 06:17 [facility] TYPE: Critical Care COMPLAINT: - CHF EXCERBATION DIAGNOSES: - Atherosclerotic heart disease of [place] coronary artery without angina pectoris - Presence of coronary angioplasty implant and graft - Prediabetes - Other chcf (current) drug therapy - Chronic kidney disease, stage 4 (severe) - Chronic obstructive pulmonary disease, unspecified - Old myocardial infarction - Presence of coronary angioplasty implant and graft - Hyperlipidemia, unspecified - nursing home (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 of antithrombotics/antiplatelets - Chronic pain syndrome - Hyperlipidemia, unspecified - Gout, unspecified - Pain in unspecified joint - Acute kidney failure, unspecified - Acute on chronic systolic (congestive) heart failure - 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 - Ischemic cardiomyopathy - Hyperuricemia without signs of inflammatory arthritis and tophaceous disease - Other specified hypothyroidism - Acute kidney failure, unspecified - Acute on chronic systolic (congestive) heart failure - Chronic pain syndrome - Contact with and (suspected) exposure to COVID-19 - Hyperuricemia without signs of inflammatory arthritis and tophaceous disease - Hypertensive heart and chronic kidney disease with heart failure and stage 1 through stage 4 chronic kidney disease, or unspecified chronic kidney disease - Anemia in chronic kidney disease - Prediabetes - Acquired absence of other specified parts of digestive tract - Pure hypercholesterolemia, unspecified - nursing home (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 of antithrombotics/antiplatelets - Pain in unspecified joint - Atherosclerotic heart disease of [place] coronary artery without angina pectoris - Ischemic cardiomyopathy - Pure hypercholesterolemia, unspecified - Old myocardial infarction - Gout, unspecified - nursing home (current) use of aspirin - Hypertensive heart and chronic kidney disease with heart failure and stage 1 through stage 4 chronic kidney disease, or unspecified chronic kidney disease - Contact with and (suspected) exposure to COVID-19 - nursing home (current) use of aspirin - Heart failure, unspecified - Chronic kidney disease, stage 4 (severe) - Other specified hypothyroidism - Chronic obstructive pulmonary disease, unspecified - Other specified postprocedural states - Other specified postprocedural states - Anemia in chronic kidney disease - Acquired absence of other specified parts of digestive tract 01/29/2022 01:36 [facility] TYPE: Observation COMPLAINT: - RESPIRATORY FAILURE,CHF DIAGNOSES: - Hypertensive heart and chronic kidney disease with heart failure and stage 1 through stage 4 chronic kidney disease, or unspecified chronic kidney disease - Atherosclerotic heart disease of [place] coronary artery without angina pectoris - Contact with and (suspected) exposure to COVID-19 - Hypothyroidism, unspecified - Acute respiratory failure, unspecified whether with hypoxia or hypercapnia - Chronic kidney disease, stage 4 (severe) - Pain in unspecified joint - Chronic obstructive pulmonary disease, unspecified - Acute on chronic systolic (congestive) heart failure - Prediabetes - nursing home (current) use of aspirin - Pure hypercholesterolemia, unspecified - Anemia in chronic kidney disease - Shortness of breath - Chronic pain syndrome - Hyperlipidemia, unspecified - Personal history of nicotine dependence - Presence of coronary angioplasty implant and graft - Old myocardial infarction [email or web address]
--- NOTE | 2022-10-03 07:44 | EKG ---
[facility] [address] [place] [address] Signed Atrial-sensed ventricular-paced rhythm Biventricular pacemaker detected Abnormal ECG When compared with ECG of 28-JUN-2022 08:12, Vent. rate has increased BY 6 BPM Confirmed by NEREYDA VELEZ MD ([id number]) on 10/03/2022 7:44:13 AM Electronically Signed By: NEREYDA VELEZ MD 10/03/22 0744 PATIENT NAME: RON MCKEON Electrocardiogram DATE OF : 53 PHYSICIAN: NEREYDA VELEZ MD REPORT #: [id number] REPORT IS CONFIDENTIAL AND NOT TO BE RELEASED WITHOUT AUTHORIZATION
== END 2022-10-02 02:30 | disposition home or self-care (01) ==
LOC: ED 23:59
DX: E87.6 Hypokalemia (principal); I11.0 Hypertensive heart disease with heart failure; I50.9 Heart failure, unspecified; I25.2 Old myocardial infarction; J44.9 Chronic obstructive pulmonary disease, unspecified; I25.10 Atherosclerotic heart disease of native coronary artery without angina pectoris; M10.9 Gout, unspecified; Z20.822 Contact with and (suspected) exposure to COVID-19; Z95.0 Presence of cardiac pacemaker; Z86.73 Personal history of transient ischemic attack (TIA), and cerebral infarction without residual deficits; Z87.891 Personal history of nicotine dependence; Z79.899 Other long term (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; Z79.84 Long term (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 of oral hypoglycemic drugs
CPT/HCPCS: 36415; 71045; 80053; 83735; 83880; 84100; 84484; 85025; 87502; 93005; 93010; 99285-25; A9270; U0003

== ENCOUNTER 2022-12-07 21:46 | Inpatient (IN) | payer OTHER, MEDICARE ==
[~2022-12-07] VITALS: Ht 175.3 cm; Wt 82.8 kg
[~2022-12-07 21:46] MED LIST changes: +OXYCODONE HCL10 MG PO
--- OUTSIDE RECORDS SUMMARY | 2022-12-07 21:50 | XMS ---
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 - PATIENT HAS TWO PRIMARY CARE PHYSICIANS- DR GONZALEZ AND DR FELICIANO AT [facility]. PLEASE CONTACT [facility] BEFORE PRESCRIBING PAIN MEDICATION. PROVIDER DISCRETION. 10/14/[address] [facility] Follow up with Dr. Gonzalez on 10/24/2021. E.D. VISIT COUNT (12 MO.) 15 [facility]. TOTAL 15 NOTE: Visits indicate total known visits. ED/UCC VISIT TRACKING (12 MO.) 12/07/2022 21:[address] [facility] [place] TYPE: Emergency COMPLAINT: - SHORTNESS OF BREATH 10/01/2022 23:59 [facility] [place] TYPE: Emergency COMPLAINT: - SOB DIAGNOSES: - Contact with and (suspected) exposure to COVID-19 - Chronic obstructive pulmonary disease, unspecified - Old myocardial infarction - 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 - Gout, unspecified - Personal history of transient ischemic attack (TIA), and cerebral infarction without residual deficits - MCFP (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 of oral hypoglycemic drugs - Presence of cardiac pacemaker - Heart failure, unspecified - Hypertensive heart disease with heart failure - Shortness of breath - Atherosclerotic heart disease of [place] coronary artery without angina pectoris - Personal history of nicotine dependence - Hypokalemia 06/28/2022 04:23 [facility] [place] TYPE: Emergency COMPLAINT: - SOB DIAGNOSES: - Hyperlipidemia, unspecified - Personal history of nicotine dependence - Old myocardial infarction - Shortness of breath - meterman (current) use of aspirin - Other group home (current) drug therapy - Contact with and (suspected) exposure to COVID-19 - Acute pulmonary edema - Hypertensive heart disease with heart failure - Chronic obstructive pulmonary disease with (acute) exacerbation - Chronic systolic (congestive) heart failure - meterman (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 of antithrombotics/antiplatelets 05/09/2022 20:15 [facility] [place] TYPE: Emergency COMPLAINT: - SOB 03/19/2022 08:32 [facility] TYPE: Emergency COMPLAINT: - SOB DIAGNOSES: - Old myocardial infarction - Hypertensive heart disease with heart failure - MCFP (current) use of systemic steroids - Presence of cardiac pacemaker - Personal history of nicotine dependence - Other group home (current) drug therapy - Heart failure, unspecified - Epigastric pain - Chronic obstructive pulmonary disease, unspecified - Presence of coronary angioplasty implant and graft 03/18/2022 21:29 [facility] TYPE: Emergency COMPLAINT: - CHEST PAIN DIAGNOSES: - Shortness of breath - MCFP (current) use of aspirin - Presence of coronary angioplasty implant and graft - Heart failure, unspecified - 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 - meterman (current) use of anticoagulants - Chronic obstructive pulmonary disease with (acute) exacerbation - Presence of cardiac pacemaker - Hypertensive heart disease with heart failure - MCFP (current) use of systemic steroids 03/18/2022 10:46 [facility] [place] TYPE: Emergency COMPLAINT: - DAYANARA DIAGNOSES: - Contact with and (suspected) exposure to COVID-19 - Old myocardial infarction - Shortness of breath - 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 - Hypertensive heart disease with heart failure - meterman (current) use of aspirin - Chronic obstructive pulmonary disease, unspecified - Heart failure, unspecified - Gout, unspecified - Personal history of nicotine dependence 03/12/2022 18:27 [facility] TYPE: Emergency COMPLAINT: - DIFFICULTY BREATHING DIAGNOSES: - Personal history of transient ischemic attack (TIA), and cerebral infarction without residual deficits - Old myocardial infarction - Dizziness and giddiness - Heart failure, unspecified - Personal history of nicotine dependence - Other group home (current) drug therapy - Hypertensive heart disease with heart failure - Chronic obstructive pulmonary disease, unspecified - MCFP (current) use of aspirin 03/06/2022 07:44 [facility] TYPE: Emergency COMPLAINT: - SOB 02/27/2022 09:11 [facility] TYPE: Emergency COMPLAINT: - SOB DIAGNOSES: - Shortness of breath - 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 - Hypertensive heart disease with heart failure - Heart failure, unspecified - Chronic obstructive pulmonary disease, unspecified - Pure hypercholesterolemia, unspecified - Personal history of nicotine dependence - Gout, unspecified - meterman (current) use of aspirin - Old myocardial infarction 02/13/2022 03:57 [facility] TYPE: Emergency COMPLAINT: - SOB 02/02/2022 13:07 [facility] TYPE: Emergency COMPLAINT: - DIFFICULTY BREATHING, CHEST PAIN DIAGNOSES: - Chronic obstructive pulmonary disease, unspecified - Other group home (current) drug therapy - Heart failure, unspecified - Personal history of nicotine dependence - Dyspnea, unspecified - Gout, unspecified - Pure hypercholesterolemia, unspecified - Old myocardial infarction - meterman (current) use of aspirin - Hypertensive heart disease with heart failure - Chest pain, unspecified 01/29/2022 01:35 [facility] TYPE: Emergency COMPLAINT: - SOB 01/26/2022 09:36 [facility] TYPE: Emergency COMPLAINT: - DAYANARA DIAGNOSES: - Personal history of nicotine dependence - Heart failure, unspecified - Old myocardial infarction - Other group home (current) drug therapy - Hypertensive heart disease with heart failure - Gout, unspecified - Dyspnea, unspecified - Chronic obstructive pulmonary disease, unspecified - meterman (current) use of aspirin 12/27/2021 16:47 [facility] TYPE: Emergency COMPLAINT: - CONGESTION DIAGNOSES: - Acute sinusitis, unspecified - Chronic obstructive pulmonary disease, unspecified - Hypertensive heart disease with heart failure - Other group home (current) drug therapy - Old myocardial infarction - Primary osteoarthritis, other specified site - meterman (current) use of aspirin - Heart failure, unspecified - Gout, unspecified - Pure hypercholesterolemia, unspecified - Personal history of nicotine dependence INPATIENT VISIT TRACKING (12 MO.) 06/28/2022 13:05 [facility] TYPE: Internal Medicine DIAGNOSES: - Chronic kidney disease, stage 3a - Pulmonary edema, resp failure - Heart failure, unspecified - Gastrointestinal hemorrhage, unspecified - Other acute kidney failure - Type 2 diabetes mellitus with hyperglycemia - Personal history of other diseases of the circulatory system - Presence of automatic (implantable) cardiac defibrillator - Ischemic cardiomyopathy 05/10/2022 02:07 [facility] [place] TYPE: Critical Care COMPLAINT: - CHF EXACERBATION, COPD EXACERBATION DIAGNOSES: - Personal history of nicotine dependence - Chronic pain syndrome - Acute kidney failure, unspecified - Chronic pain syndrome - Chronic kidney disease, stage 3b - Anemia in chronic kidney disease - Type 2 diabetes mellitus with hyperglycemia - Hypothyroidism, unspecified - Personal history of nicotine dependence - Personal history of transient ischemic attack (TIA), and cerebral infarction without residual deficits - Pain in unspecified joint - Presence of coronary angioplasty implant and graft - Acute kidney failure, unspecified - Old myocardial infarction - Contact with and (suspected) exposure to COVID-19 - Hyperuricemia without signs of inflammatory arthritis and tophaceous disease - Old myocardial infarction - Dependence on supplemental oxygen - Anemia in chronic kidney disease - Dependence on supplemental oxygen - Chronic obstructive pulmonary disease with (acute) exacerbation - Pain in unspecified joint - Contact with and (suspected) exposure to COVID-19 - Hypertensive heart and chronic kidney disease with heart failure and stage 1 through stage 4 chronic kidney disease, or unspecified chronic kidney disease - Chronic kidney disease, stage 3b - Type 2 diabetes mellitus with diabetic chronic kidney disease - Pure hypercholesterolemia, unspecified - Type 2 diabetes mellitus with hyperglycemia - Presence of coronary angioplasty implant and graft - Acute on chronic systolic (congestive) heart failure - Gout, unspecified - Hypothyroidism, unspecified - Hyperuricemia without signs of inflammatory arthritis and tophaceous disease - Chronic obstructive pulmonary disease with (acute) exacerbation - Atherosclerotic heart disease of [place] coronary artery without angina pectoris - Gout, unspecified - Personal history of transient ischemic attack (TIA), and cerebral infarction without residual deficits - Atherosclerotic heart disease of [place] coronary artery without angina pectoris - Pure hypercholesterolemia, unspecified - Hypertensive heart and chronic kidney disease with heart failure and stage 1 through stage 4 chronic kidney disease, or unspecified chronic kidney disease - Type 2 diabetes mellitus with diabetic chronic kidney disease 04/09/2022 12:58 [facility] TYPE: Medical Surgical COMPLAINT: - DECOMPENSATED HEART FAILURE DIAGNOSES: - MCFP (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 of antithrombotics/antiplatelets - Contact with and (suspected) exposure to COVID-19 - Chronic kidney disease, stage 3b - Anxiety disorder, unspecified - Anemia in chronic kidney disease - meterman (current) use of inhaled steroids - Atherosclerotic heart disease of [place] coronary artery without angina pectoris - Anemia in chronic kidney disease - Chronic pain syndrome - Hyperuricemia without signs of inflammatory arthritis and tophaceous disease - 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 - Chronic kidney disease, stage 3b - Pain in unspecified joint - meterman (current) use of aspirin - meterman (current) use of inhaled steroids - Pure hypercholesterolemia, unspecified - meterman (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 of antithrombotics/antiplatelets - Anxiety disorder, unspecified - meterman (current) use of systemic steroids - Chronic kidney disease, stage 4 (severe) - Other group home (current) drug therapy - meterman (current) use of opiate analgesic - Pain in unspecified joint - Atherosclerotic heart disease of [place] coronary artery without angina pectoris - Hyperuricemia without signs of inflammatory arthritis and tophaceous disease - meterman (current) use of systemic steroids - Type 2 diabetes mellitus with diabetic chronic kidney disease - MCFP (current) use of opiate analgesic - Contact with and (suspected) exposure to COVID-19 - Chronic pain syndrome - Acute on chronic systolic (congestive) heart failure - Pure hypercholesterolemia, unspecified - Other specified hypothyroidism - meterman (current) use of aspirin - Other specified hypothyroidism - Type 2 diabetes mellitus with diabetic chronic kidney disease 03/06/2022 07:45 [facility] TYPE: Observation COMPLAINT: - ACUTE ON CHRONIC SYSTOLIC CONGESTIVE HEART FAILURE DIAGNOSES: - Old myocardial infarction - Hormone replacement therapy - Prediabetes - Contact with and (suspected) exposure to COVID-19 - 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 - Acute on chronic systolic (congestive) heart failure - Atherosclerotic heart disease of [place] coronary artery without angina pectoris - Presence of coronary angioplasty implant and graft - Personal history of nicotine dependence - MCFP (current) use of aspirin - Acute respiratory failure with hypoxia - Unspecified osteoarthritis, unspecified site - Chronic pain syndrome - Personal history of transient ischemic attack (TIA), and cerebral infarction without residual deficits - Hyperlipidemia, unspecified - meterman (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 of antithrombotics/antiplatelets - Hypertensive heart disease with heart failure - Chronic obstructive pulmonary disease, unspecified - Presence of aortocoronary bypass graft - Gout, unspecified - Presence of automatic (implantable) cardiac defibrillator 02/13/2022 06:17 [facility] TYPE: Critical Care COMPLAINT: - CHF EXCERBATION DIAGNOSES: - Old myocardial infarction - Gout, unspecified - Pure hypercholesterolemia, unspecified - Hypertensive heart and chronic kidney disease with heart failure and stage 1 through stage 4 chronic kidney disease, or unspecified chronic kidney disease - Contact with and (suspected) exposure to COVID-19 - MCFP (current) use of aspirin - Heart failure, unspecified - Chronic kidney disease, stage 4 (severe) - meterman (current) use of aspirin - Chronic obstructive pulmonary disease, unspecified - Other specified postprocedural states - Other specified hypothyroidism - Other specified postprocedural states - Anemia in chronic kidney disease - Acquired absence of other specified parts of digestive tract - Presence of coronary angioplasty implant and graft - Prediabetes - Atherosclerotic heart disease of [place] coronary artery without angina pectoris - Other group home (current) drug therapy - Chronic kidney disease, stage 4 (severe) - Chronic obstructive pulmonary disease, unspecified - Presence of coronary angioplasty implant and graft - Hyperlipidemia, unspecified - Old myocardial infarction - Chronic pain syndrome - Hyperlipidemia, unspecified - meterman (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 of antithrombotics/antiplatelets - Pain in unspecified joint - Acute kidney failure, unspecified - Gout, unspecified - Other group home (current) drug therapy - Ischemic cardiomyopathy - Acute on chronic systolic (congestive) heart failure - Other specified hypothyroidism - Acute kidney failure, unspecified - Acute on chronic systolic (congestive) heart failure - Hyperuricemia without signs of inflammatory arthritis and tophaceous disease - Contact with and (suspected) exposure to COVID-19 - Hyperuricemia without signs of inflammatory arthritis and tophaceous disease - Chronic pain syndrome - Hypertensive heart and chronic kidney disease with heart failure and stage 1 through stage 4 chronic kidney disease, or unspecified chronic kidney disease - Anemia in chronic kidney disease - Prediabetes - Pure hypercholesterolemia, unspecified - MCFP (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 of antithrombotics/antiplatelets - Acquired absence of other specified parts of digestive tract - Atherosclerotic heart disease of [place] coronary artery without angina pectoris - Ischemic cardiomyopathy - Pain in unspecified joint 01/29/2022 01:[address] [facility] [place] TYPE: Observation COMPLAINT: - RESPIRATORY FAILURE,CHF DIAGNOSES: - Shortness of breath - Chronic pain syndrome - Personal history of nicotine dependence - Hyperlipidemia, unspecified - Presence of coronary angioplasty implant and graft - Old myocardial infarction - Hypertensive heart and chronic kidney disease with heart failure and stage 1 through stage 4 chronic kidney disease, or unspecified chronic kidney disease - Atherosclerotic heart disease of [place] coronary artery without angina pectoris - Contact with and (suspected) exposure to COVID-19 - Hypothyroidism, unspecified - Chronic kidney disease, stage 4 (severe) - Acute respiratory failure, unspecified whether with hypoxia or hypercapnia - Pain in unspecified joint - Acute on chronic systolic (congestive) heart failure - Chronic obstructive pulmonary disease, unspecified - Prediabetes - MCFP (current) use of aspirin - Pure hypercholesterolemia, unspecified - Anemia in chronic kidney disease [email or web address]
--- NOTE | 2022-12-08 02:27 | NUR ---
PATIENT WAS RESTING ON THE SIDE OF BEDSIDE TABLE. HE REFUSES TO GET ALL THE WAY IN BED. HE ALSO HAS REFUSED TO GET IN A PATIENT GOWN. WHILE RESTING ON BEDSIDE TABLE; HIS OXYGEN HAS DROPPED TO 88%. PUT PATIENT ON 5 L NC FROM 4 L. NOW SATTING 93%.
--- NOTE | 2022-12-08 05:36 | NUR ---
PATIENT OVER THE NIGHT DESATS TO 85% ON 4 L NC. HE SLEEPS SLUMPED OVER ON THE BEDSIDE TABLE. BUMPED O2 UP TO 6.5L NC WHILE SLEEPING. WHEN AWAKE ABLE TO TURN O2 BACK TO BASELINE AT 4 L NC.
--- NOTE | 2022-12-08 06:32 | NUR ---
PATIENT IS REQUESTING COFFEE. EXPLAINED THE 1.6 L FLUID RESTRICTION. HE HAS STATED THAT HE KNOWS AND WILL NOT DRINK TOO MUCH. HAS A 1 LITER FLASK AT BEDSIDE. HE WILL NOT ALLOW ME TO REMOVE IT.
--- NOTE | 2022-12-08 07:42 | NUR ---
pt sitting at edge of bed. bs taken. urinal emptied. pillowcase replaced. no needs. call light within reach
--- NOTE | 2022-12-08 10:30 | NUR ---
rn in room - pt stood up to void 600 ml of yellow urine in urinal - recorded. continues to sit in orthopnc position. desats to 80's with exertion improves to 90's with rest on nc oxygen.
--- NOTE | 2022-12-08 12:22 | NUR ---
pt up to ch, po meds given and insulin for lunch - lab in for blood draw timed. pt talkative and alert.
--- NOTE | 2022-12-08 14:06 | NUR ---
PT ON COVID PRECAUTIONS-WILL FOLLOW ABLE
--- NOTE | 2022-12-08 14:15 | NUR ---
IN TO SEE PATIENT, PATIENT SITTING UP IN CHAIR WATCHING TV. PATIENT STATES HE IS STILL LIVING IN A RENTAL WITH HIS ANNA. PATIENT RECVS DISABILITY AND [facility] PENSION. PATIENT STATES HE HAS A CANE AND WHEELCHAIR AT HOME THOUGH HE DOES NOT USE THEM ALL OF THE TIME. PATIENT STATES HE DOES USE HIS WC AT [facility] APPOINTMENTS. PATIENT DOES NOT INDICATE ANY NEED FOR HOUSING OR FOOD RESOURCES. PATIENT DOES INDICATE HAVING SOME ISSUES AT HOME CURRENTLY WITH HIS RELATIONSHIP, BUT DOES NOT WISH TO SEEK ASSISTANCE. PATIENT FEELS THAT HIS IN INCONVENIENCED BY HIM AND HE DOES NOT FEEL WELCOME IN HIS OWN HOME. OFFERED REFERRAL TO [facility] FOR HOME CAREGIVING, PATIENT DECLINES. PATIENT BECOMES TEARFUL WHEN DISCUSSING THE ISSUES FURTHER. OFFERED REFERRAL TO [facility] TO CONSIDER QUARRYING MANAGER PLACEMENT, PATIENT AGAIN DECLINES HE DOES NOT WANT TO LEAVE HIS DOGS. PATIENT CONTINUES TO CONVEY SOCIAL ISSUES, BUT DECLINES MULTIPLE OFFERS OF ASSISTANCE SAYING "IT WILL JUST MAKE IT WORSE AT HOME." PATIENT DECLINES SUICIDAL/HOMICIDAL FEELINGS WHEN ASKED DIRECTLY. ADVISED PATIENT THAT CASE MANAGEMENT IS AVAILABLE TO ASSIST WITH RESOURCES AT ANY TIME. WILL CONTINUE TO FOLLOW UP WITH PATIENT.
--- NOTE | 2022-12-08 16:31 | NUR ---
pt assisted up to br sba. pt uses urinal indep in br. pt back to chair. bs taken. rn notified. no needs. call light within reach
--- NOTE | 2022-12-08 17:22 | NUR ---
this rn and charge attendant kathryn have note pt to have periods of apnea up to 20 sec at length - while pt is alert and oriented watching tv sitting up in , these events have been witnessed through the afternoon. when stimulated in room pt resp 8-13 with talk and watching tv while rn in room charting. pt legs cont. to be swollen and painful but pt refuses to elevate,
--- NOTE | 2022-12-08 17:53 | NUR ---
call to dr rodriguez to update on pt status and apnea periods in afternoon - i/o and vitals reviewed with dr on phone, pt awake and eating dinner up in chair with call light.
--- NOTE | 2022-12-08 18:11 | NUR ---
pt was able to call and talk to as he was anxious and had not talked to her today - his cell is at home, he was upset about there relationship and her not comeing in to visit him, he suspects she has a boyfrien enedina and he is distressed over the attention she gives him on the phone, pt raises his voice and hr increases when he talks about this life stress - rn tried to distract and change subject but pt continues. pt then assisted to walk to bathroom to sit on toilet - rn in room.
--- NOTE | 2022-12-08 18:21 | NUR ---
pt up to bathroom to have bm - missed hat/urinal and had void in toilet trying to have bm - unsucsessfull at bm. amb back to chair - elevated legs in chair and vitals done. resp rate 19 and talking.
--- NOTE | 2022-12-08 19:08 | NUR ---
pt was sleeping in and entered to visit with pt, he was alert and oriented. feet are now down and pt encoraged to elevate.
--- NOTE | 2022-12-08 23:01 | NUR ---
PATIENT IS ON HIS PHONE IN THE RECLINER CHAIR. PATIENT REFUSES TO GET IN BED.
--- NOTE | 2022-12-09 03:40 | NUR ---
awake and alert. walked to the bathroom. VS taken
--- NOTE | 2022-12-09 06:09 | NUR ---
PATIENT HAS REQUESTED PAIN MEDICATION FOR LOWER LEGS. EXPRESSED THE IMPORTANCE OF ELEVATING LEGS. AGREED TO LIFT IN THE RECLINER. EDUCATED PATIENT THAT PAIN MEDICATION IS EVERY 4 HOURS AND IT IS NOT DUE YET.
--- NOTE | 2022-12-09 09:40 | NUR ---
PATIENT UP TO BATHROOM, WITH SBA FOR BM. PATEINT AMBULATED WELL. PATIENT BACK TO CHAIR, CALL LIGHT AND PERSONAL PHONE IN EASY REACH
--- NOTE | 2022-12-09 10:41 | NUR ---
PATIENT INTO BR FOR VOID AND ANOTHER BM. PATIENT C/O OF "SOUR STOMACH." RN ANNE MARIE AWARE. PATIENT BACK TO CHAIR, CALL LIGHT AND PERSONAL ITEMS IN EASY REACH.
--- NOTE | 2022-12-09 10:45 | NUR ---
pt request mom for sour stomach after 2 bm's - in chair. nio for heartburn checked with relief charge nurse. see emar.
--- NOTE | 2022-12-09 11:12 | NUR ---
in room for rounds with dr rodriguez, pt up in , reports feeling better - noted to have 2 bms today. oxygen 99% 4l nc. legs cont. to be swollen.
--- NOTE | 2022-12-09 11:53 | NUR ---
REPORT RECEIVED FROM ALFONSO KENNEY. AWAITING PTS ARRIVAL TO UNIT.
--- NOTE | 2022-12-09 12:13 | NUR ---
SPOKE TO PATIENT ABOUT HIS PLAN DC PLAN. PATIENT PLANS TO GO HOME TO HIS RENTED APARTMENT. PATIENT HAS A AND PATIENT STATES THERE ARE MARITIAL ISSUES. PATIENT DOES NOT WANT TO DISCUSS. PATIENT USES A WAKER AND A CANE. PATIENT SITS MOST OF THE DAY IN HIS RECLINER. PATIENT IS 45% [facility] DISABLED AND GETS ALL HIS MED[facility]S FROM THE [facility]. 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 PATIENT DOES NOT HAVE STAIRS AND IS ABLE TO AFFORD FOOD AND PAY UTILITIES.
--- NOTE | 2022-12-09 12:19 | NUR ---
TRANSFER REPORT TO NOE HAMILTON ON MS - PLAN TO MOVE PT AFTER 1 PM. PT UP IN EATING MEAL.
--- NOTE | 2022-12-09 13:22 | NUR ---
this rn assisted to trsf pt in with legs elevated to MS 113. all items removed, cell phone, hat, wallet and pharmacology teacher. pt recently medicated with norco for pain, denies needs aware of plan.
--- NOTE | 2022-12-09 13:23 | NUR ---
PT ARRIVED FROM CCU BY CHAIR. PT ALERT AND OREINTED TO ALL. PT REPORTS 6/10 PAIN IN BLE AND STATES "IT'S REALLY GOOD RIGHT NOW." PT DENIES NEED FOR ADDITIONAL PAIN MEDICATION. PT DENIES ANY PAIN IN OTHER LOCATIONS. PT DENIES [place]. LUNG SOUNDS CLEAR, PT ON ROOM AIR AND TOLERATING WITH OXYGEN SATURATIONS 95-98%. I.S. OFFERED, PT DECLINES. PT EDUCATION DONE REGARDING HOME OXGYEN USE, PT STATES HE USES 4L O2 BY NC AT ALL TIMES. PT DECLINES EDUCATION. +4 PITTING EDEMA CONTINUES IN BLE. LEGES ELVATED. SKIN VERY DRY, PT WEARING SOLIED CLOTHES. PT DECLINES BATHING OR SHOWER OF ANY KIND (OPTIONS OFFERED, DECLIEND). PT WATCHIGN TV. NO ADDITIONAL REQUESTS OR COMPLAINTS. CALL LIGHT WITHIN REACH. BED RAILS UP. FALL PRECAUTIONS REVEIWED IN DETAIL WITH PT.
[2022-12-09] MEDS ORDERED: VENTOLIN HFA18 GM INH (13:30)
[2022-12-09] MEDS ORDERED: BISACODYL5 MG PO (13:41)
--- NOTE | 2022-12-09 13:55 | NUR ---
PT ALERT, ORIENTED AND SITTING IN CHAIR. O2 NC IN USE. I AM FAMILIAR WITH THIS PT FROM PREVIOUS ADMISSIONS. HAD GOOD VISIT, PT SHARED SOME ISSUES HE FEELS HE FACES AT HOME. DEBRIEFED, ENCOURAGED PT TO SPEND MORE TIME WITH HIS DAUGHTER- HE SEEMS TO HAVE GOOD RELATIONSHIP WITH HER. HE JUST DOESN'T WANT TO BOTHER HER. PT ADMITTED HE FEELS BETTER, THANKFUL FOR CARE HE RECEIVES AT [facility]. HAD PRAYER WITH PT, WAITING ON DR GONZALEZ. WILL FOLLOW
--- NOTE | 2022-12-09 14:02 | EKG ---
[facility] [address] [facility] [place] [address] Signed Atrial-sensed ventricular-paced rhythm with occasional premature ventricular complexes Abnormal ECG When compared with ECG of 02-OCT-2022 00:19, premature ventricular complexes are now present Vent. rate has increased BY 31 BPM Confirmed by KIMMIE GONZALEZ MD ([id number]) on 12/09/2022 2:02:42 PM Electronically Signed By: KIMMIE GONZALEZ MD 12/09/22 1402 PATIENT NAME: RON MCKEON Electrocardiogram DATE OF : 53 PHYSICIAN: KIMMIE GONZALEZ MD REPORT #: [id number] REPORT IS CONFIDENTIAL AND NOT TO BE RELEASED WITHOUT AUTHORIZATION
--- NOTE | 2022-12-09 14:15 | NUR ---
PT CALLED TO SAY HE NEEDED O2. ASSESSED VS, PT SAT 97%. PT INSISTED THAT HE NEEDED IT FOR COMFORT AND THAT HE WEARS IT AT HOME. PLACED PT ON 1LNC
--- NOTE | 2022-12-09 14:23 | NUR ---
THIS RN TO ROOM TO CHECK ON PT. PT REPORTS HE WAS FEELING SHORT OF BREATH AND PLACED ON 1L O2 BY NC. OXGYEN SATURATION NOW 98-99%. PT WEANED BACK TO ROOM AIR AND FAN PLACED IN FRONT OF PT. PT ALLOWED TO KEEP NC IN PLACE FOR "SECURITY." PT REQUESTS SODA. 100ML OF WATER REMOVED FROM PT CUP AND 100ML OF DIET SODA PROVIDED TO KEEP PT WITHIN FLUID RESTRICTION. PT CONTINUES TO DECLINE SHOWER. PT REFUSES TO ELEVATE LEGS AT THIS TIME. 325ML CLEAR YELLOW URINE REMOVED FROM URINAL. PT DENIES ADDITIONAL REQUESTS OR COMPLAINTS. REPORS LEG PAIN REMAINS AT 7/10. PT DENIES NEED FOR ADDITIONA PAIN MEDICATION. NO ADDITIONAL REQUESTS OR COMPLAINTS. CALL LIGHT WITHIN REACH.
[2022-12-09] MEDS ORDERED: METOLAZONE2.5 MG PO (14:24)
[2022-12-09] MEDS ORDERED: TORSEMIDE20 MG PO ×2 (14:25)
[2022-12-09] MEDS ORDERED: JARDIANCE25 MG PO (14:26)
--- NOTE | 2022-12-09 14:28 | NUR ---
MED REC COMPLETE
--- NOTE | 2022-12-09 14:35 | NUR ---
PT TRANSFERED FROM CCU THIS SHIFT, HERE FOR CHF EXACERBATION. PT UP WITH STAND BY ASSIST AND CANE/WALKER THIS SHIFT TO VOID IN URINAL. PT CONTINUES TO WEAR SOILED CLOTHING AND REFUSES SHOWER OR CLOTHING CHANGE. PT TOLERATING 60G CARB LOW SODIUM DIET WITH 1600ML FLUID RESTRICTION. REQUESTS FLUIDS FREQUENTLY. HEART TONES REGULAR AND LUNG SOUNDS CLEAR ALTHOUGH +4 PITTING EDEMA REMAINS TO BLE. PT HAS LEGS ELEVATED INTERMITTANTLY. PT WEANED TO ROOM AIR BUT LEAVES NC IN PLACE FOR COMFORT. TOLEATING WITH OXYGEN SATURATIONS ABOVE 95%. BLOOD SUGAR CHECKS WITH MEALS AND HS WITH SLIDING SCALE INSULIN GIVEN. PT UP TO CHAIR FOR MOST OF SHIFT. BARRIER CREAM TO GLUTEAL AREA. IV LASIX AND SPIRONOLACTONE GIVEN WITH GOOD RESULTS. . PT USES CALL LIGHT AND MAKES NEEDS KNOWN.
--- NOTE | 2022-12-09 15:11 | NUR ---
MEDICAITON DUE. THIS RN TO ROOM. PT REQUESTS A SNACK, DIETARY CONTSULTED AND STATES PT CAN HAVE COTTAGE CHEESE, PROVIDED. IV PAINFUL AND LEAKIGN WITH FLUSH. NEW IV STARTED PER PROTOCOL TO RIGHT FORARM, PT TOELRATED WELL. MEDICAITON GIVEN, IV FLUSHED AND SALINE LOCKED, ALCOHOL CAP APPLIED. IV TO LEFT AC DC'D PER PROTOCOL, GAUZE AND COBAN APPLIED. PT EPROTS 8/10 PAIN IN BLE, GABAPENTIN GIVEN. NO ADDITIONAL REQUESTS OR COMPLAINTS. OXYGEN SATURATIONS CONTINUES TO BE 96-97% ON ROOM AIR. PT ENCOAURGED TO ELEVATE LEGS, DECLINES. NO ADDITIONAL REQUESTS OR COMPLAINTS. CALL LIGHT WITHIN REACH.
--- NOTE | 2022-12-09 16:10 | NUR ---
THIS RN TO ROOM TO CHECK ON PT. PT UP TO CHAIR, WATCHING TV. PT REPORTS PAIN IS WELL CONTROLLED IN BLE. PT CONTINUES TO HAVE LEGS LOWERED. PT TOLERATING ROOM AIR WITH OXYGEN SATURATION OF 98% ON ROOM AIR. PT DENIES ADDITIONAL REQUESTS OR COMPLAINTS STATING HE IS ANTICIPATING DINNER. NO ADDITIONAL REQUESTS OR COMPLAINTS. CALL LIGHT WITHIN REACH.
--- NOTE | 2022-12-09 16:47 | NUR ---
MEDICATION DUE. PT CALL LIGHT ON. PT REPORTS NEED TO USE THE RESTROOM. STAND BY ASSIST UP TO RESTROOM. PT VOIDS CLEAR YELLOW URINE, DIGNA CARE PER PT. STAND BY ASSIST BACK TO CHAIR. PT REPORTS FEELING "COLD." WARM BLANKETS PROVIDED. MEDICATIONS GIVEN (SEE MAR). DEINNER DELIVERED TO PT. NO ADDITIONAL REQUESTS OR COMPLAINTS. CALL LIGHT WITHIN REACH.
--- NOTE | 2022-12-09 18:35 | NUR ---
THIS RN TO ROOM TO CHECK ON PT. PT UP TO CHAIR, VISITING WITH HIS DAUGHTER. PT INSISTS ON NIGHT TIME WATER BEING ADDED TO HIS HYDROFLASK, WATER ADDED. EDUCATION DONE WITH PT REGARDING FLUID RESTRICTION. PT DENIES ADDIITONAL REQUESTS OR COMPLAINTS. PT REPORTS PAIN IN BLE IS WELL CONTROLLED AT THIS TIME. PT LAUGHTING AND JOKING WITH DAUGHTER. CALL LIGHT WITHIN REACH.
--- NOTE | 2022-12-09 19:21 | NUR ---
REPORT RECEIVED FROM DAY SHIFT RN. PT RESTING IN RECLINER WITH EYES CLOSED. RESPIRATIONS EVEN. CALL LIGHT IN REACH.
--- NOTE | 2022-12-09 21:13 | NUR ---
PT RESTING IN RECLINER WITH EYES CLOSED. AWAKENS EASILY. UP TO BR TO VOID WITH MINIMAL SBA. GAIT STEADY. BACK TO RECLINER. WARM BLANKETS PROVIDED. PT DENIES SOB WITH ACTIVITY. VS AND I&O OBTAINED. EVENING ASSESSMENT COMPLETE. SCHEDULED MEDS ADMIN PER EMAR. 3L/NC IN PLACE. SpO2 100%. RESPIRATIONS EVEN. LUNGS CLEAR. BLE EDEMA NOTED. PT ENCOURAGED TO ELEVATE BLE. PT DENIES QUESTIONS OR CONCERNS. CALL LIGHT IN REACH.
--- NOTE | 2022-12-09 22:27 | NUR ---
CALL LIGHT ANSWERED. PT UP TO BR TO VOID 250 ML CLEAR YELLOW URINE. BACK TO RECLINER. GAIT STEADY. ALLY WELL. REMOVES NC TO AMBULATE, DENIES SOB WITH ACTIVITY. NC BACK ON. BLE ELEVATED. NO FURTHER NEEDS.
--- NOTE | 2022-12-09 23:39 | NUR ---
PT SITTING IN RECLINER AWAKE. REPORTS BLE PAIN 04/16. PRN FOR PAIN ADMIN PER EMAR. CRACKERS PROVIDED. NO FURTHER NEEDS.
--- NOTE | 2022-12-10 01:40 | NUR ---
PT RESTING IN RECLINER WITH FEET ELEVATED. EYES CLOSED. RESPIRATIONS EVEN. CALL LIGHT IN REACH.
--- NOTE | 2022-12-10 04:19 | NUR ---
CALL LIGHT ANSWERED. PT UP TO BR TO VOID. GAIT STEADY. BACK TO RECLINER. BLE ELEVATED. BLE EDEMA IMPROVED THIS AM. REPORTS BLE PAIN 04/16. PRN FOR PAIN ADMIN PER EMAR. PT REMOVES NC FOR AMB TO BR, REPLACES WHEN BACK TO RECLINER. DENIES SOB. LUNGS CLEAR. SMALL AMOUNT OF FRESH WATER AND CRACKERS PROVIDED. NO FURTHER NEEDS.
--- NOTE | 2022-12-10 06:17 | NUR ---
PT AWAKE IN RECLINER. VS AND I&O OBTAINED. DAILY WEIGHT OBTAINED. SCHEDULED MEDS ADMIN PER EMAR. NO FURTHER NEEDS.
--- NOTE | 2022-12-10 07:26 | NUR ---
RECEIVED REPORT FROM [facility] NURSE. PT APPEARST TO BE SLEEPING COMFORTABLY IN CHAIR. RESPIRATIONS EVEN AND REGULAR.
--- NOTE | 2022-12-10 08:29 | NUR ---
PT IS A/O, RESPIRATIONS EVEN AND REGULAR. BG 146. NO SLIDING SCALE INSULIN GIVEN. PT IS SITTING UP IN CHAIR EATING BREAKFAST. CALL LIGHT WITHIN REACH.
--- NOTE | 2022-12-10 10:10 | NUR ---
ROUNDED ON PT. PT IS A/O, RESPIRATIONS EVEN AND REGULAR. SITTING IN CHAIR. CALL LIGHT WITHIN REACH.
--- NOTE | 2022-12-10 11:08 | NUR ---
PT CALLED TO LET STAFF KNOW HE WAS GOING TO USE THE RESTROOM. THIS OPERATING ENGINEER WENT TO HIS ROOM AND HE ALSO TOLD ME "I'M JUST LETTING YOU KNOW I'M GOING IN TO THE BATHROOM BECAUSE I NEED TO CLEAN THIS SORE ON MY BOTTOM, THAT I DIDNT GET HERE, I GOT IT AT HOME BEFORE THIS, BUT I WANT TO CLEAN IT ON MY OWN." I GAVE HIM THE SILICONE CREAM TO APPLY. PT IS INDEPENDENT IN ROOM BUT CALLS APPORPRIATLY TO LET US KNOW WHEN HE IS UP. NO OTHER NEEDS AT THIS TIME.
--- NOTE | 2022-12-10 11:57 | NUR ---
SPOKE TO PATIENT ABOUT HIS DISCHARGE PLAN. PATIENT IS GLAD THAT THE DOCTOR DECIDED TO KEEP HIM ANOTHER DAY. PATIENT STATES THAT LAST HOSPITALIZATION HE WAS SENT HOME TO [facility]. PATIENT'S DISCHARGE PLAN REMAINS THE SAME. PATIENT PLANS TO GO HOME WITH HIS TO THEIR APARTMENT. THE PLAN IS THE PATIENT WILL GO HOME TOMORROW.
--- NOTE | 2022-12-10 12:10 | NUR ---
MEDICATION ADMINISTRATION COMPLETED. PT IS A/O, SITTING UP IN CHAIR. PT STATES HE IS MONITORING HIS FLUID INTAKE. CALL LIGHT WITHIN REACH.
--- NOTE | 2022-12-10 13:30 | NUR ---
PT ASSESSMENT COMPLETED. PT IS A/O, RESPIRATIONS EVEN AND REGULAR. ENCOURAGED PT TO SIT WITH LEGS ELEVATED. BLE PITTING EDEMA CONTINUES TO BE 3+. CALL LIGHT WITHIN REACH.
--- NOTE | 2022-12-10 14:05 | NUR ---
PT IMPROVED, ABLE TO TRANSFER TO M/S FLOOR. PT SITTING IN CHAIR, OR NE IN USE. PT SEEMS TO BE BETTER, TRUSTS DR AND THEIR ADVICE TO REMAIN TONIGHT BEFORE DC. GAVE ENCOURAGEMENT, PT THANKED ME FOR VISIT. WILL FOLLOW
--- NOTE | 2022-12-10 14:26 | NUR ---
PATIENT REQUESTED PAIN MEDICATION FOR PAIN RATING 8/10. PRN MEDICATION GIVEN. CONTINUED TO ENCOURAGE ELEVATING LEGS. CALL LIGHT WITHIN REACH.
--- NOTE | 2022-12-10 15:42 | NUR ---
ROUNDED ON PT. PT IS A/O, SITTING UP IN CHAIR. DENIES COMPLAINTS/NEEDS ATT. FAMILY AT BEDSIDE.
--- NOTE | 2022-12-10 17:00 | NUR ---
MEDICATION ADMINISTRATION COMPLETED. PT IS TEARFUL AFTER LEFT ROOM. STATES HE WILL HAVE SOME CHANGES AT HOME. PT DOES NOT WISH TO DISCUSS ATT. OFFERED CASE MANAGEMENT INVOLVMENT HE STATED HE WOULD THINK ABOUT IT.
--- NOTE | 2022-12-10 18:13 | NUR ---
MEDICATION ADMINISTRATION COMPLETED. PT AMBULATING IN ROOM WELL. CALL LIGHT WITHIN REACH. DENIES ANY OTHER NEEDS/COMPLAINTS ATT.
--- NOTE | 2022-12-10 19:30 | NUR ---
RECEIVED BEDSIDE REPORT FROM OFFGOING SHIFT, HOURLY ROUNDING INITIATED
--- NOTE | 2022-12-10 21:30 | NUR ---
IN PT ROOM FOR ROUNDING, PT RESTING IN CHAIR, WATCHING TV, NO COMPLAINT OF PAIN OR DISCOMFORT, CALL LIGHT IN REACH
--- NOTE | 2022-12-11 00:27 | NUR ---
In pt room for medication administration. Pt reporting pain in legs of 8/10. Pt given medication, no further complaint, call light in reach.
--- NOTE | 2022-12-11 02:31 | NUR ---
IN pt room for rounding. Pt up watching television in chair. Pt denies pain or discomfort, call light in reach.
--- NOTE | 2022-12-11 03:46 | NUR ---
In pt room for rounding. Pt up to the bathroom, no complaint of pain at this time, call light in reach.
--- NOTE | 2022-12-11 05:51 | NUR ---
IN pt room for rounding, morning vs and weight. pt is up watching TV, no complaint of pain or discomfort, compliant with assessments, call light in reach
--- NOTE | 2022-12-11 07:20 | NUR ---
RECIEVED SHIFT REPORT. PT AWAKE IN RECLINER, CALL LIGHT IN REACH. DENIES FURTHER NEEDS.
--- NOTE | 2022-12-11 09:51 | NUR ---
MORNING ASSESSMENT COMPLETE. PT RATED PAIN 8/10, PRN PAIN MEDICATION ADMINISTERED (PER EMAR) WITH MORNING MEDS. 3+ EDEMA BILAT LOWER EXT. PT REFUSED TO ELEVATE THIS TIME. PT IS EMOTIONAL THIS MORNING DUE TO HOME CIRCUMSTANCES. DENIES FURTHER NEEDS. CALL LIGHT IN REACH
[2022-12-11] MEDS ORDERED: SPIRONOLACTONE25 MG PO (10:06)
[2022-12-11] MEDS ORDERED: GABAPENTIN100 MG PO (10:07)
[2022-12-11] MEDS ORDERED: GLIPIZIDE XL10 MG PO (10:11)
--- NOTE | 2022-12-11 10:20 | NUR ---
No change in plan for dc. Pt may move to [place] with daughter. He will need to find a pcp there and contact medical records for his chart.
--- NOTE | 2022-12-11 11:02 | NUR ---
THIS CNA2 REMOVED IV ON R ARM PER D/C
--- NOTE | 2022-12-11 13:39 | NUR ---
RN CJ CONCERNED ABOUT PTS' EMOTIONAL STATE FOR DC. PT EXPRESSED DIFFICULT HOME SITUATION, SAID HIS DAUGHTER HAS BEEN IN CONTACT WITH PTS' [facility] CON[facility] WITH HIS CONSENT REGARDING PLACEMENT THROUGH [facility]. HAD TIME TO DEBRIEF PT, HE ASKED FOR PRAYER. PT ON RM O2, DRESSED AND READY TO DC. GAVE BLESSING
== END 2022-12-11 11:10 | disposition home or self-care (01) | DRG 291 ==
LOC: ED 21:46 → CCU 21:48 → MS 12-08 10:38 → CCU 12-08 10:38 → MS 12-09 13:23
PROVIDERS: ADMIT Internal Medicine; ATTEND Family Medicine
PROC: 5A09357 Assistance with Respiratory Ventilation, Less than 24 Consecutive Hours, Continuous Positive Airway Pressure (ICD-10-PCS; principal; 2022-12-07)
DX: I13.0 Hypertensive heart and chronic kidney disease with heart failure and stage 1 through stage 4 chronic kidney disease, or unspecified chronic kidney disease (principal); I50.23 Acute on chronic systolic (congestive) heart failure; U07.1 COVID-19; J44.9 Chronic obstructive pulmonary disease, unspecified; M13.88 Other specified arthritis, other site; I25.10 Atherosclerotic heart disease of native coronary artery without angina pectoris; N18.32 Chronic kidney disease, stage 3b; D63.1 Anemia in chronic kidney disease; E11.22 Type 2 diabetes mellitus with diabetic chronic kidney disease; E03.9 Hypothyroidism, unspecified; D72.829 Elevated white blood cell count, unspecified; G89.4 Chronic pain syndrome; E79.0 Hyperuricemia without signs of inflammatory arthritis and tophaceous disease; E78.00 Pure hypercholesterolemia, unspecified; I25.2 Old myocardial infarction; Z99.81 Dependence on supplemental oxygen; Z86.73 Personal history of transient ischemic attack (TIA), and cerebral infarction without residual deficits; Z95.0 Presence of cardiac pacemaker; Z95.5 Presence of coronary angioplasty implant and graft; Z87.891 Personal history of nicotine dependence; Z90.49 Acquired absence of other specified parts of digestive tract; Z98.890 Other specified postprocedural states; Z79.51 Long term (current) use of inhaled steroids; Z79.899 Other long term (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; Z79.84 Long term (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 of oral hypoglycemic drugs; Z79.82 Long term (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; Z88.8 Allergy status to other drugs, medicaments and biological substances
CPT/HCPCS: 36415; 71045; 80048; 80053; 83036; 83605; 83735; 83880; 84484; 85025; 87502; 93005; 93010; 94640; 94660; 94760; A9270; C9803; J0696; J1650; J1815; J1940; J2930; U0003

== ENCOUNTER 2023-01-03 03:52 | Inpatient (IN) | payer OTHER, MEDICARE ==
[~2023-01-03] VITALS: Ht 175.3 cm; Wt 83.0 kg
[2023-01-03] VITALS (14 sets, daily range): BP systolic 93–123; BP diastolic 51–74
[~2023-01-03 03:52] MED LIST changes: +GLIPIZIDE XL10 MG PO
--- OUTSIDE RECORDS SUMMARY | 2023-01-03 03:58 | XMS ---
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 Care History Medical/Surgical 11/04/2021 [facility] \T\nbsp; Care Recommendation: \T\nbsp;\T\nbsp;\T\nbsp;\T\nbsp;\T\nbsp;\T\nbsp; \T\nbsp;\T\nbsp; PLEASE REVIEW MESHAP - ANANDA \T\nbsp;\T\nbsp;\T\nbsp;\T\nbsp;\T\ nbsp;\T\nbsp;\T\nbsp;\T\nbsp; USE EXTREME CAUTION IN GIVING NARCOTICS. \T\ nbsp;\T\nbsp;\T\nbsp;\T\nbsp;\T\nbsp;\T\nbsp;\T\nbsp;\T\nbsp; Avoid Discharge Narcotic prescriptions if at all possible. Physician discretion. 11/03/2021 [facility] - PATIENT WAS REFERRED TO [facility] 12/21/20.NEXT APT WITH THE PAIN CLINIC WILL BE ON 03/06/21 AND THEN THE PAIN CONTRACT WILL BE ESTABLISHED. - PATIENT HAS TWO PRIMARY CARE PHYSICIANS- DR GONZALEZ AND DR FELICIANO AT [facility]. PLEASE CONTACT [facility] BEFORE PRESCRIBING PAIN MEDICATION. PROVIDER DISCRETION. 10/14/2021 [facility] Follow up with Dr. Goznalez on 10/24/2021. E.D. VISIT COUNT (12 MO.) 15 [facility]. TOTAL 15 NOTE: Visits indicate total known visits. ED/UCC VISIT TRACKING (12 MO.) 01/03/2023 03:53 [facility] TYPE: Emergency COMPLAINT: - SOB 12/07/2022 21:47 [facility] TYPE: Emergency COMPLAINT: - SHORTNESS OF BREATH 10/01/2022 23:59 [facility] TYPE: Emergency COMPLAINT: - SOB DIAGNOSES: - Atherosclerotic heart disease of [place] coronary artery without angina pectoris - Chronic obstructive pulmonary disease, unspecified - Contact with and (suspected) exposure to COVID-19 - Gout, unspecified - Heart failure, unspecified - Hypertensive heart disease with heart failure - Hypokalemia - terminal operator (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 of oral hypoglycemic drugs - Old myocardial infarction - Other 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 manager (current) drug therapy - Personal history of nicotine dependence - Personal history of transient ischemic attack (TIA), and cerebral infarction without residual deficits - Presence of cardiac pacemaker - Shortness of breath 06/28/2022 04:23 [facility] TYPE: Emergency COMPLAINT: - SOB DIAGNOSES: - Acute pulmonary edema - Chronic obstructive pulmonary disease with (acute) exacerbation - Chronic systolic (congestive) heart failure - Contact with and (suspected) exposure to COVID-19 - Hyperlipidemia, unspecified - Hypertensive heart disease with heart failure - correction (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 of antithrombotics/antiplatelets - correction (current) use of aspirin - Old myocardial infarction - Other 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 manager (current) drug therapy - Personal history of nicotine dependence - Shortness of breath 05/09/2022 20:15 [facility] TYPE: Emergency COMPLAINT: - SOB 03/19/2022 08:32 [facility] TYPE: Emergency COMPLAINT: - SOB DIAGNOSES: - Chronic obstructive pulmonary disease, unspecified - Epigastric pain - Heart failure, unspecified - Hypertensive heart disease with heart failure - terminal operator (current) use of systemic steroids - Old myocardial infarction - Other 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 manager (current) drug therapy - Personal history of nicotine dependence - Presence of cardiac pacemaker - Presence of coronary angioplasty implant and graft 03/18/2022 21:29 [facility] TYPE: Emergency COMPLAINT: - CHEST PAIN DIAGNOSES: - Chronic obstructive pulmonary disease with (acute) exacerbation - Heart failure, unspecified - Hypertensive heart disease with heart failure - correction (current) use of anticoagulants - terminal operator (current) use of aspirin - correction (current) use of systemic steroids - Other 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 manager (current) drug therapy - Presence of cardiac pacemaker - Presence of coronary angioplasty implant and graft - Shortness of breath 03/18/2022 10:46 [facility] TYPE: Emergency COMPLAINT: - DAYANARA DIAGNOSES: - Chronic obstructive pulmonary disease, unspecified - Contact with and (suspected) exposure to COVID-19 - Gout, unspecified - Heart failure, unspecified - Hypertensive heart disease with heart failure - correction (current) use of aspirin - Old myocardial infarction - Other 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 manager (current) drug therapy - Personal history of nicotine dependence - Shortness of breath 03/12/2022 18:27 [facility] TYPE: Emergency COMPLAINT: - DIFFICULTY BREATHING DIAGNOSES: - Chronic obstructive pulmonary disease, unspecified - Dizziness and giddiness - Heart failure, unspecified - Hypertensive heart disease with heart failure - correction (current) use of aspirin - Old myocardial infarction - Other care home (current) drug therapy - Personal history of nicotine dependence - Personal history of transient ischemic attack (TIA), and cerebral infarction without residual deficits 03/06/2022 07:44 [facility] TYPE: Emergency COMPLAINT: - SOB 02/27/2022 09:11 [facility] TYPE: Emergency COMPLAINT: - SOB DIAGNOSES: - Chronic obstructive pulmonary disease, unspecified - Gout, unspecified - Heart failure, unspecified - Hypertensive heart disease with heart failure - terminal operator (current) use of aspirin - Old myocardial infarction - Other 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 manager (current) drug therapy - Personal history of nicotine dependence - Pure hypercholesterolemia, unspecified - Shortness of breath 02/13/2022 03:57 [facility] TYPE: Emergency COMPLAINT: - SOB 02/02/2022 13:07 [facility] TYPE: Emergency COMPLAINT: - DIFFICULTY BREATHING, CHEST PAIN DIAGNOSES: - Chest pain, unspecified - Chronic obstructive pulmonary disease, unspecified - Dyspnea, unspecified - Gout, unspecified - Heart failure, unspecified - Hypertensive heart disease with heart failure - terminal operator (current) use of aspirin - Old myocardial infarction - Other care home (current) drug therapy - Personal history of nicotine dependence - Pure hypercholesterolemia, unspecified 01/29/2022 01:35 [facility] TYPE: Emergency COMPLAINT: - SOB 01/26/2022 09:36 [facility] TYPE: Emergency COMPLAINT: - DAYANARA DIAGNOSES: - Chronic obstructive pulmonary disease, unspecified - Dyspnea, unspecified - Gout, unspecified - Heart failure, unspecified - Hypertensive heart disease with heart failure - correction (current) use of aspirin - Old myocardial infarction - Other 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 manager (current) drug therapy - Personal history of nicotine dependence INPATIENT VISIT TRACKING (12 MO.) 12/08/2022 10:38 [facility] TYPE: Medical Surgical COMPLAINT: - CHF,COPA,COVID DIAGNOSES: - Acquired absence of other specified parts of digestive tract - Acquired absence of other specified parts of digestive tract - Acute on chronic systolic (congestive) heart failure - Acute on chronic systolic (congestive) heart failure - Allergy status to other drugs, medicaments and biological substances - Allergy status to other drugs, medicaments and biological substances - Anemia in chronic kidney disease - Anemia in chronic kidney disease - Atherosclerotic heart disease of [place] coronary artery without angina pectoris - Atherosclerotic heart disease of [place] coronary artery without angina pectoris - Chronic kidney disease, stage 3b - Chronic kidney disease, stage 3b - Chronic obstructive pulmonary disease, unspecified - Chronic obstructive pulmonary disease, unspecified - Chronic pain syndrome - Chronic pain syndrome - COVID-19 - COVID-19 - Dependence on supplemental oxygen - Dependence on supplemental oxygen - Elevated white blood cell count, unspecified - Elevated white blood cell count, unspecified - Hypertensive heart and chronic kidney disease with heart failure and stage 1 through stage 4 chronic kidney disease, or unspecified chronic kidney disease - Hypertensive heart and chronic kidney disease with heart failure and stage 1 through stage 4 chronic kidney disease, or unspecified chronic kidney disease - Hyperuricemia without signs of inflammatory arthritis and tophaceous disease - Hyperuricemia without signs of inflammatory arthritis and tophaceous disease - Hypothyroidism, unspecified - Hypothyroidism, unspecified - correction (current) use of aspirin - terminal operator (current) use of aspirin - correction (current) use of inhaled steroids - correction (current) use of inhaled steroids - terminal operator (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 of oral hypoglycemic drugs - terminal operator (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 of oral hypoglycemic drugs - Old myocardial infarction - Old myocardial infarction - Other 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 manager (current) drug therapy - Other care home (current) drug therapy - Other specified arthritis, other site - Other specified arthritis, other site - Other specified postprocedural states - Other specified postprocedural states - Personal history of nicotine dependence - Personal history of nicotine dependence - Personal history of transient ischemic attack (TIA), and cerebral infarction without residual deficits - Personal history of transient ischemic attack (TIA), and cerebral infarction without residual deficits - Presence of cardiac pacemaker - Presence of cardiac pacemaker - Presence of coronary angioplasty implant and graft - Presence of coronary angioplasty implant and graft - Pure hypercholesterolemia, unspecified - Pure hypercholesterolemia, unspecified - Shortness of breath - Type 2 diabetes mellitus with diabetic chronic kidney disease - Type 2 diabetes mellitus with diabetic chronic kidney disease 06/28/2022 13:05 [facility] TYPE: Internal Medicine DIAGNOSES: - Chronic kidney disease, stage 3a - Gastrointestinal hemorrhage, unspecified - Heart failure, unspecified - Ischemic cardiomyopathy - Other acute kidney failure - Personal history of other diseases of the circulatory system - Presence of automatic (implantable) cardiac defibrillator - Type 2 diabetes mellitus with hyperglycemia - Pulmonary edema, resp failure 05/10/2022 02:07 [facility] TYPE: Critical Care COMPLAINT: - CHF EXACERBATION, COPD EXACERBATION DIAGNOSES: - Acute kidney failure, unspecified - Acute kidney failure, unspecified - Acute on chronic systolic (congestive) heart failure - Anemia in chronic kidney disease - Anemia in chronic kidney disease - Atherosclerotic heart disease of [place] coronary artery without angina pectoris - Atherosclerotic heart disease of [place] coronary artery without angina pectoris - Chronic kidney disease, stage 3b - Chronic kidney disease, stage 3b - Chronic obstructive pulmonary disease with (acute) exacerbation - Chronic obstructive pulmonary disease with (acute) exacerbation - Chronic pain syndrome - Chronic pain syndrome - Contact with and (suspected) exposure to COVID-19 - Contact with and (suspected) exposure to COVID-19 - Dependence on supplemental oxygen - Dependence on supplemental oxygen - Gout, unspecified - Gout, unspecified - Hypertensive heart and chronic kidney disease with heart failure and stage 1 through stage 4 chronic kidney disease, or unspecified chronic kidney disease - Hypertensive heart and chronic kidney disease with heart failure and stage 1 through stage 4 chronic kidney disease, or unspecified chronic kidney disease - Hyperuricemia without signs of inflammatory arthritis and tophaceous disease - Hyperuricemia without signs of inflammatory arthritis and tophaceous disease - Hypothyroidism, unspecified - Hypothyroidism, unspecified - Old myocardial infarction - Old myocardial infarction - Pain in unspecified joint - Pain in unspecified joint - Personal history of nicotine dependence - Personal history of nicotine dependence - Personal history of transient ischemic attack (TIA), and cerebral infarction without residual deficits - Personal history of transient ischemic attack (TIA), and cerebral infarction without residual deficits - Presence of coronary angioplasty implant and graft - Presence of coronary angioplasty implant and graft - Pure hypercholesterolemia, unspecified - Pure hypercholesterolemia, unspecified - Type 2 diabetes mellitus with diabetic chronic kidney disease - Type 2 diabetes mellitus with diabetic chronic kidney disease - Type 2 diabetes mellitus with hyperglycemia - Type 2 diabetes mellitus with hyperglycemia 04/09/2022 12:58 [facility] TYPE: Medical Surgical COMPLAINT: - DECOMPENSATED HEART FAILURE DIAGNOSES: - Acute on chronic systolic (congestive) heart failure - Anemia in chronic kidney disease - Anemia in chronic kidney disease - Anxiety disorder, unspecified - Anxiety disorder, unspecified - Atherosclerotic heart disease of [place] coronary artery without angina pectoris - Atherosclerotic heart disease of [place] coronary artery without angina pectoris - Chronic kidney disease, stage 3b - Chronic kidney disease, stage 3b - Chronic kidney disease, stage 4 (severe) - Chronic pain syndrome - Chronic pain syndrome - Contact with and (suspected) exposure to COVID-19 - Contact with and (suspected) exposure to COVID-19 - Hyperuricemia without signs of inflammatory arthritis and tophaceous disease - Hyperuricemia without signs of inflammatory arthritis and tophaceous disease - terminal operator (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 of antithrombotics/antiplatelets - terminal operator (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 of antithrombotics/antiplatelets - correction (current) use of aspirin - correction (current) use of aspirin - terminal operator (current) use of inhaled steroids - terminal operator (current) use of inhaled steroids - correction (current) use of opiate analgesic - correction (current) use of opiate analgesic - terminal operator (current) use of systemic steroids - terminal operator (current) use of systemic steroids - Other care home (current) drug therapy - Other 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 manager (current) drug therapy - Other specified hypothyroidism - Other specified hypothyroidism - Pain in unspecified joint - Pain in unspecified joint - Pure hypercholesterolemia, unspecified - Pure hypercholesterolemia, unspecified - Type 2 diabetes mellitus with diabetic chronic kidney disease - Type 2 diabetes mellitus with diabetic chronic kidney disease 03/06/2022 07:45 [facility] TYPE: Observation COMPLAINT: - ACUTE ON CHRONIC SYSTOLIC CONGESTIVE HEART FAILURE DIAGNOSES: - Acute on chronic systolic (congestive) heart failure - Acute respiratory failure with hypoxia - Atherosclerotic heart disease of [place] coronary artery without angina pectoris - Chronic obstructive pulmonary disease, unspecified - Chronic pain syndrome - Contact with and (suspected) exposure to COVID-19 - Gout, unspecified - Hormone replacement therapy - Hyperlipidemia, unspecified - Hypertensive heart disease with heart failure - terminal operator (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 of antithrombotics/antiplatelets - terminal operator (current) use of aspirin - Old myocardial infarction - Other care home (current) drug therapy - Personal history of nicotine dependence - Personal history of transient ischemic attack (TIA), and cerebral infarction without residual deficits - Prediabetes - Presence of aortocoronary bypass graft - Presence of automatic (implantable) cardiac defibrillator - Presence of coronary angioplasty implant and graft - Unspecified osteoarthritis, unspecified site 02/13/2022 06:17 [facility] TYPE: Critical Care COMPLAINT: - CHF EXCERBATION DIAGNOSES: - Acquired absence of other specified parts of digestive tract - Acquired absence of other specified parts of digestive tract - Acute kidney failure, unspecified - Acute kidney failure, unspecified - Acute on chronic systolic (congestive) heart failure - Acute on chronic systolic (congestive) heart failure - Anemia in chronic kidney disease - Anemia in chronic kidney disease - Atherosclerotic heart disease of [place] coronary artery without angina pectoris - Atherosclerotic heart disease of [place] coronary artery without angina pectoris - Chronic kidney disease, stage 4 (severe) - Chronic kidney disease, stage 4 (severe) - Chronic obstructive pulmonary disease, unspecified - Chronic obstructive pulmonary disease, unspecified - Chronic pain syndrome - Chronic pain syndrome - Contact with and (suspected) exposure to COVID-19 - Contact with and (suspected) exposure to COVID-19 - Gout, unspecified - Gout, unspecified - Heart failure, unspecified - Hyperlipidemia, unspecified - Hyperlipidemia, unspecified - Hypertensive heart and chronic kidney disease with heart failure and stage 1 through stage 4 chronic kidney disease, or unspecified chronic kidney disease - Hypertensive heart and chronic kidney disease with heart failure and stage 1 through stage 4 chronic kidney disease, or unspecified chronic kidney disease - Hyperuricemia without signs of inflammatory arthritis and tophaceous disease - Hyperuricemia without signs of inflammatory arthritis and tophaceous disease - Ischemic cardiomyopathy - Ischemic cardiomyopathy - correction (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 of antithrombotics/antiplatelets - correction (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 of antithrombotics/antiplatelets - correction (current) use of aspirin - terminal operator (current) use of aspirin - Old myocardial infarction - Old myocardial infarction - Other 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 manager (current) drug therapy - Other care home (current) drug therapy - Other specified hypothyroidism - Other specified hypothyroidism - Other specified postprocedural states - Other specified postprocedural states - Pain in unspecified joint - Pain in unspecified joint - Prediabetes - Prediabetes - Presence of coronary angioplasty implant and graft - Presence of coronary angioplasty implant and graft - Pure hypercholesterolemia, unspecified - Pure hypercholesterolemia, unspecified 01/29/2022 01:[address] [facility] [place] TYPE: Observation COMPLAINT: - RESPIRATORY FAILURE,CHF DIAGNOSES: - Acute on chronic systolic (congestive) heart failure - Acute respiratory failure, unspecified whether with hypoxia or hypercapnia - Anemia in chronic kidney disease - Atherosclerotic heart disease of [place] coronary artery without angina pectoris - Chronic kidney disease, stage 4 (severe) - Chronic obstructive pulmonary disease, unspecified - Chronic pain syndrome - Contact with and (suspected) exposure to COVID-19 - Hyperlipidemia, unspecified - Hypertensive heart and chronic kidney disease with heart failure and stage 1 through stage 4 chronic kidney disease, or unspecified chronic kidney disease - Hypothyroidism, unspecified - correction (current) use of aspirin - Old myocardial infarction - Pain in unspecified joint - Personal history of nicotine dependence - Prediabetes - Presence of coronary angioplasty implant and graft - Pure hypercholesterolemia, unspecified - Shortness of breath [email or web address]
--- NOTE | 2023-01-03 07:54 | NUR ---
BEDSIDE REPORT RECEIVED FROM ALFONSO MILLER. PT TRANSFERED TO CCU BY THIS RN. PT ABLE TO TRANSFER WITH BIPAP IN PLACE AND SITTING STRAIGHT UPWARD IN BED WITH HEAD OF BED AT 90 DEGREES. OXGYEN SATURATION MAINTAINS ABOVE 90 DEGREES DURING TRANSFER. PT STANDS AND PIVOTS TO BED WITH 1 PERSON ASSIT FOR LINE AND TUBE MANAGEMENT. PT UNABLE TO STAND FOR WEIGHT AT THIS TIME. PT SITTING ON EDGE OF BED, TRIPOD STYLE OVER BEDSIDE TABLE. DECLINES RESTING IN BED STATING HE CANNOT BREATH. LUNG SOUNDS CLEAR IN UPPER LOBES, COURSE AND TIGHT IN BASES WITH MINIMAL AIR MOVEMENT. PT REMAINS BIPAP DEPENDANT AT THSI TIME WITH 16/8 SETTINGS AND 35% FIO2. MILD ABOMDINAL MUSCLE USE NOTED ESPICIALLY WITH EXPIRATION. PT DENIES COUGH. PTS OXGYEN SATURATIONS CLIMB TO 98-100% ON 35% FIO2 AND 16/8, FIO2 WEANED TO 30% FIO2. TELMENTRY MONITORING IN PLACE WITH PACED RYTHEM NOTED RATE 80-90'S. ABDOMEN SOFT, MILDY DISTENDED. PT REPORTS BOWEL MOVEMENT YESTERDAY BUT REQUESTS STOOL SOFTENERS. NIO ORDER PLACED. 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 PT REPORTS THIS WOUND HAS "BEEN THERE FOR A WHILE." PHOTOGRAPHS TAKE (SEE PAPER CHART). EDUCATION DONE WITH PT REGARDING PLAN OF CARE AND FLUID BALANCE. PT VERBALIZES UNDERSTANDING, DECLINES REMOVAL OF LARGE HOME WATERBOTTLE. NO ADDITIONAL NEEDS AT THIS TIME. CALL LIGHT WITHIN REACH. BED RAILS UP.
--- NOTE | 2023-01-03 08:22 | NUR ---
PT REPORTS NEED TO HAVE A BOWEL MOVEMENT. 1 PERSON ASSIST FOR LINE AND TUBE MANAGEMENT UP TO BEDSIDE COMODE. PT HAS EXTRA LARGE FORMED BROWN BOWEL MOVEMENT. PT STATES HE WOULD STILL LIKE A STOOL SOFTENER "AT LEAST WHILE I'M IN HERE." 1 PERSON ASSIT FOR LINE AND TUBE MANAGEMENT BACK TO BED, PT IN TRIPOD POISITION. NO ADDITONAL NEEDS AT THIS TIME. OXGYEN SATUARTIONS 96% ON BIPAP 16/8 ADN 30% FIO2. CALL LIGHT WITHIN REACH.
--- NOTE | 2023-01-03 08:51 | NUR ---
PT CALL LIGHT ON. PT REQUESTS ASSISTANCE UP TO BEDSIDE COMODE AGAIN, PT HAS ADDITONAL SMALL FORMED BOWEL MOVEMENT AND VOIDS 300ML CLEAR YELLOW URINE. 1 PERSON ASSIST BACK TO BED SIDE, PT REMAINS IN TRIPOD POSITION. OXGYEN SATUARTION MAINTAINS ABOVE 94% ON BIPAP, SETTINGS UNCHANGED. PT TAKING FREQUENT SIPS FROM HOMEWATER BOTTLE. EDUCATION DONE WITH PT REGARDING LIMITING FLUIDS, PT VERBALIZES UNDERSTANDING BUT DECLINES REMOVAL OF HOME (LARGE) WATERBOTTLE. NO ADDITIONAL REQUESTS OR COMPLAINTS. CALL LIGHT WITHIN REACH. BED RAILS UP.
--- NOTE | 2023-01-03 09:35 | NUR ---
PT CALL LIGHT ON. PT REQUESTS ASSISTANCE UP TO BEDSIDE COMODE. 1 PERSON ASSIT FOR LINE AND TUBE MANAGEMENT UP TO COMODE. PT VOIDS 300ML WITH OUT ISSUE. DIGNA CARE DONE. 1 PERSON ASSIST BACK TO BED. PT REPORTS HE IS AGREEABLE TO GET THE EKG AT THIS TIME. RT CALLED AND TO BEDSIDE FOR EKG. PT ALSO REPORTS HE WOULD LIKE BREAFKAST. CLEAR LIQUIDS PROVIDED. PT PLACED ON 4L O2 BY NC WHILE EATING AND MAINTAINS OXGYEN SATURATIONS ABOVE 94%. PT EATING JELLO AND COFFEE. CONTINUES TO DRINK WATER FROM HOME FLASK, ADDITIONAL EDUCATION DONE WITH PT REGARDING LIMITIING FLUIDS. PT UNINTERESTED AND STATES "I JUST WANT MY WATER." INSISTS THAT WATER BE REFILLED "NOW." PT NOW DECLINES STOOL SOFTENERS. PO POTASSIUM GIVEN. STANDING WEIGHT TAKEN. PT UP TO BEDSIDE COMODE FOR A 2ND TIME. PT PASSES GAS PT CONTINUES TO HAVE OXGYEN SATU;ARTIONS 96-100% ON BIPAP 16/8 AND 28%FIO2. FIO2 WEANED TO 25%, PT CONTINUES TO MAINTAIN OXGYEN SATURATIONS ABOVE 90%. PT BACK TO BED AND REMAINS IN TRIPOD POSITION . NO ADDITIONAL REQUESTS OR COPMLAINTS. CALL LIGHT WITHIN REACH. BED RAILS UP.
--- NOTE | 2023-01-03 10:22 | NUR ---
PT CALL LIGHT ON. PT REQUESTS TYELNOL FOR A SORE NECK "BECAUSE I HAVE TO SIT UP LIKE THIS." PT DECLINES TIME IN BED, DECLINES REPOSITIONING. NURSE INITITIATED TYLENOL ORDERED. SEE MAR FOR MEDICATION GIVEN. PT ASSISTED WITH CALLING HIS ON ROOM PHONE, PT MAINTAINS OXGYEN SATURATION ON 4L O2 BY NC WHILE TALKING ON THE PHONE. PT REQUESTS BIPAP BE PLACED BACK ON, PLACED, WITH SETTINGS REMAINING 16/8 AND 25% FIO2. NO ADDITIONAL REQUESTS OR COMPLAINTS. CALL LIGHT WITHIN REACH. BED RAILS UP. PT REMAINS IN TRIPOD POSITION.
--- NOTE | 2023-01-03 10:32 | NUR ---
PT CALL LIGHT ON. PT REQEUSTS ASSISTANCE UP TO VOID. PT REQUESTS A BREAK FROM THE BIPAP. PT PLACED ON 4L O2 BY NC WHILE GETTING UP TO VOID. PT MAINTAINS OXGYEN SATUATIONS 94% AND ABOVE ON 4L O2 BY NC. PT VOIDS WITH OUT ISSUES. NO ADDITONAL REQUESTS OR COMPLAINTS. PT PLACED BACK ON BIPAP, SETTINGS UNCHANGED, PER HIS REQUEST. CALL LIGHT WITHIN REACH. BED RAILS UP.
--- NOTE | 2023-01-03 11:01 | NUR ---
THIS RN TO ROOM WITH DR GONZALEZ FOR ROUNDS. PT PLACED ON 4L O2 BY NC TO TALK WITH DOCTOR. PT VERBALIZES UNDERSTANDING OF PLAN OF CARE. PT REQUESTS TO REMAIN ON NC AT 4L. PT CONTINUES TO INSIST ON WATER BOTTLE BEING REFILLED. MOUTH SWABS PROVIDED AND EDUCATION DONE WITH PT. PT AGREES TO TRY MOUTH SWABS. PT REMAINS IN TRIPOD POSITION. NO ADDITIONAL REQUESTS OR COMPLAINTS. CALL LIGHT WITHIN REACH. BED RAILS UP.
--- NOTE | 2023-01-03 11:15 | NUR ---
PTS CALLED AND UPDATED PER DR. GONZALEZ'S REQUEST. QUESTIONS ASKED ABOUT WHEN AND HOW PT IS TAKING HIS MEDICATIONS. DEIRDRE STATES SHE FILLS PTS MEDICATION PILL BOX BUT DOESN'T KNOW IF HE IS TAKING HIS MEDICATIONS. DEIRDRE STATES SHE IS "TOO TIRED, DON'T WANT TO GET OUT OF BED" TO CHECK PTS PILL BOX FOR THIS WEEK. DEIRDRE STATES SHE (AND PT) ARE BOTH MOVING (PT TO [place], AND PTS TO [place]) BUT OTHERWISE CANNOT THINK OF A REASON FOR PTS EXACERBATION. DR GONZALEZ UPDATED. DEIRDRE STATES HER QUESTIONS HAVE ALL BEEN ANSWERED.
--- NOTE | 2023-01-03 11:27 | NUR ---
PT CALL LIGHT ON. PT UPSET THAT HIS ISN'T HERE. THERAPUTIC COMMUNICATION PERFORMED. PT STATES "I JUST WANT HER TO BRING MY CLOTHES." PT CONTINUES TO DECLINE TAKING OFF HIS HOME PANTS OR PLACING A HOSPITAL GOWN. HOSPITAL SCRUB TOP OFFERED, PT ACCEPTS. OXGYEN SATURATION 99% ON 4L O2 BY NC. PT WEANTED TO 2L O2 BY NC WITH OXYGEN SATURATIONS OF 97%. PT REQUESTS "MORE AIR FLOW." FAN PROVIDED WHICH PT STATES HELPS. NO ADDITIONAL REQUESTS OR COMPLAINTS. CALL LIGHT WITHIN REACH. BED RAILS UP.
--- NOTE | 2023-01-03 11:37 | NUR ---
PT CALL LIGHT ON. PT REQUESTS ASSISTANCE UP TO STAND TO VOID IN URINAL. STAND BY ASSIST WHILE PT USES URINAL. PT VOIDS 350ML CLEAR YELLOW URINE. PT BACK TO BED, TIRIPOD POSITION. NO ADDITIONAL REQUESTS OR COMPLAINTS. CALL LIGHT WITHIN REACH.
--- NOTE | 2023-01-03 12:18 | NUR ---
NOON ASSESSMENT AND MEDICATION DUE. PT REMAINS IN TRIPOD POSITION. PT REQUESTS "MORE WATER." PT VERBALIES UNDERSTANDING OF LIMITING FLUIDS AND CONTINUES TO REQUEST MORE WATER, PROVIDED. PT REPORTS 8/10 'ALL OVER" PAIN, SEE MAR FOR MEDICATION GIVEN. PT CONTINUES TO REPORT HOT AND COLD SPELLS. PT CURRENTLY "TO COLD." BLAKETS PROVIDED AND PT REPORTS FEELING "TOO HOT." VITAL SIGNS STABLE. MEDICATION GIVEN. LUNG SOUNDS NOW CLEAR IN LOWER LOBES BUT TIGHT. UPPER LOBES CLEAR. PT REPORTS OCCATIONAL COUGH WITH THIN CLEAR SPUTUM. WORK OF BREATHING WNL WITH OCCATIONAL MILD ABDOMINAL MUSCLE USE PARTICULARLY WITH EXPIRATION. PT REMAINS ON 2L O2 BY [place] WITH OXGYEN SATURATION 94% AND ABOVE. PT ORIENTED TO ALL AND INTERACTING APPROPRIATLY. HEART RATE AND RYTHEM UNCHANGED, PACED WITH RATE IN THE 80-90'S. +3 EDEMA UNCHANGED TO BLE AND FEET. PT DECLINES TIME BACK ON BIPAP. NO ADDITIONAL REQUESTS OR COMPLAINTS. LUNCH DELIVERED, PT DECLINES, WANTING ONLY THE FLUID. NO ADDITIONAL REQUESTS OR COMPLAINTS. PT ASSISTED WITH CALLING HIS . CALL LIGHT WITHIN REACH. BED RAILS UP.
--- NOTE | 2023-01-03 12:35 | NUR ---
PT CALL LIGHT ON. PT REQUESTS JELLO, PROVIDED. PT EATS ALL OF JELLO. VITAL SIGNS STABLE. MEDICATION GIVEN. PT DENIES ADDITIONAL REQUESTS OR COMPLAINTS. CALL LIGHT WITHIN REACH. BED RAILS UP.
--- NOTE | 2023-01-03 13:06 | NUR ---
HOURLY ROUNDING: PT REMAINS IN TRIPOD POSITION. PT REQUESTS ASSISTANCE WITH REPOSITIONING AND URINAL USE. PT UP TO STAND WITH STAND BY ASSIST. NEW ORDERS FROM MD TO TRANSFER PT TO MED/SURG. THIS RN TO BE REASSIGNED WITH PT, WILL CONTINUE CARE WITH PT ON MED/SURG. PT UPDATED ON PLAN OF CARE. NO ADDITIONAL REQUESTS OR COMPLAINTS. CALL LIGHT WITHIN REACH. BED RAILS UP.
--- NOTE | 2023-01-03 13:40 | NUR ---
PT TRANSFERED TO MED/SURG BY THIS RN. PT CONTINUES TO TOLERATE 2L O2 BYNC WITH NIRMALA ARNDT 94%. PT REPORTS FEELING "MUCH BETTER." PT REQUESTS ADDITIONAL ICE WATER, PROVIDED. VITAL SIGNS STABLE. NO ADDITIONAL REQUESTS OR COMPLAINTS. PT OREINTED TO NEW ROOM. CALL LIGHT WITHIN REACH. BED RAILS UP.
--- NOTE | 2023-01-03 14:43 | NUR ---
THIS RN TO ROOM TO CHECK ON PT. PT RESTING WITH EYES CLOSED. RESPIRATIONSE LISS AND UNLABORED. PT ALLOWED TO REST. CALL LIGHT WITHIN REACH. BED RAILS UP.
--- NOTE | 2023-01-03 14:50 | NUR ---
PT CALL LIGHT ON. PT REQUESTS MEDICATION "FOR MY LEGS." SEE MAR FOR MEDICATION GIVEN. OXGYEN SATURATION 97% ON 2L O2 BY NC. PT DENIES ADDITIONAL REQUESTS OR COMPLAINTS. CALL LIGHT WITHIN REACH. BED RAILS UP.
--- NOTE | 2023-01-03 15:50 | NUR ---
THIS RN TO ROOM TO CHECK ON PT. PT RESTING WITH EYES CLOSED, LEANING OVER BEDSIDE TABLE. 2L O2 BY NC IN PLACE. RESPIRATIONS EVEN AND UNLABORED. CALL LIGHT WITHIN REACH. PT ALLOWED TO REST.
--- NOTE | 2023-01-03 17:12 | NUR ---
AFTERNOON ASSESSMENT AND MEDICATION DUE. PT REPORTS "I WAS NAPPING THAT WHOLE TIME." PT RPEORTS 8/10 PAIN IN NECK FROM LEANING FORWARD OVER TABLE DURING HIS NAP. PT REQUESTS PAIN MEDICAITON, SEE MAR FOR MEDICATION GIVEN. REPOSITIONING RECCOMENDED, PT DECLINES. LUNG SOUNDS CLEAR THOUGHOUT. MORE AIR MOVEMENT NOTED IN LOWER LOBES THIS EVENING. PT REMAINS ON 2L O2 BY NC WITH OXGYEN SATURATIONS ABOVE 94%. MINIMAL COUGH HEARD. HEART TONES REGULAR. BLOOD PRESSURE NOTED TO BE BELOW 100 SYSTOLICALLY. MD CALLED AND UPDATED AND STATES TO HOLD ISOSORBIDE. +3 PITTING EDEMA CONTIUES IN BLE AND FEET. PT DECLINES ELEVATION OF EXTREMITIES. PT DECLINES DINNER ASKING ONLY FOR JELLOW AND FRUIT. FRUIT AND SUGAR FREE JELLO PROVIDED. BELKYSVYN REMAINS C/D/I OVER GLUTEAL AREA. PT DENIES ADDITIOANL REQUESTS OR COMPLAINTS. CALL LIGHT WITHIN REACH. BED RAILS UP.
--- NOTE | 2023-01-03 17:53 | NUR ---
PT TRANSFERED FROM CCU THIS SHIFT. HERE FOR CHF AND RESPIRTORY FAILURE. PT UP WITH 1 PERSON STAND BY ASSIST TO BEDSIDE COMODE AND RESTROOM THIS SHIFT. PT OTHERWISE PREFERES TO SIT IN TRIPOD POSITION AT EDGE OF BED. PT HAS MINIMAL APPITITE FOR 60G CARB DIET, EATING MOSTLY JELLO. PT DRINKING A LOT OF FLUID, EDUCATION DONE, PT DECLINES ADJUSTMENTS IN FLUID INTAKE. BLOOD SUGAR CHECKS WITH SLIDING SCALE INSLUIN WITH MEALS AND HS. IV LASIX GIVEN WITH GOOD OUTPUT. LUNG SOUNDS CORSE THIS MORING IN LOWER LOBES, CLEAR THIS AFTERNOON. PT WEANED FROM BIPAP TO 2L O2 BY NC. OXYGEN SATURATIONS REMAIN ABOVE 94%. ISOSORBIDE HELD THIS EVENING RELATED TO LOWER BLOOD PRESSURES. PT VOIDING QUANTITY SUFFICIENT. PT USES CALL LIGHT AND MAKES NEEDS KNOWN.
--- NOTE | 2023-01-03 18:04 | NUR ---
THIS RN TO ROOM TO CHECK ON PT. PT REPORTS HIS NOSE IS DRY. HUMIDIFICATION ADDED TO NC OXYGEN. PT REMAINS ON 2L O2 BY NC WITH OXYGEN SATURATIONS YRIS 94%. PT UP TO VOID IN URINAL. PT REQUESTS ADDITIONAL WATER, EDUCATION DONE, PT INSISTS, WATER PROIVIDED. PT REPORTS PAIN HAS IMPROVED, NOW /. PT REQUESTS CRACKERS, PROVIDED. NO ADDITIONAL REQUESTS OR COMPLAINTS. CALL LIGHT WITHIN REACH.
--- NOTE | 2023-01-03 19:30 | NUR ---
SHIFT REPORT RECEIVED FROM NOEMY LIU AT BEDSIDE. pt AWAKE AND RESTING IN CHAIR, BLE LOWERED IN CHAIR. pt DENIES ELEVATING BLE IN CHAIR WHEN OFFERED, EDUCATION PROVIDED. NOW ALSO IN ROOM AND ASKING WHERE pt's PORTABLE CONCENTRATOR IS AND INFORMED THE STAFF THAT THE pt's PHONE IS ALSO IN THE BAG. NOEMY LIU MADE CALLS AND STAFF IS LOOKING FOR BAG. WILL MONITOR. CALL LIGHT IN REACH, 3LNC IN PLACE. NO DISTRESS NOTED. CALL LIGHT IN REACH.
--- NOTE | 2023-01-03 20:01 | NUR ---
CALL LIGHT ANSWERED, pt REPORTING 8/10 PAIN IN BLE, ALSO IN ROOM. NO ADDITIONAL NEEDS OR CONCERNS. 3LNC IN PLACE. CALL LIGHT IN REACH.
--- NOTE | 2023-01-03 21:00 | NUR ---
PORTABLE CONCENTRATOR WITH CELLPHONE FOUND AND NOW IN ROOM WITH pt STICKER IN PLACE IN THE CLOSET. CALLED AND ASKED AGAIN ABOUT IT AND WAS INFORMED BOTH PHONE AND CONCENTRATOR WERE FOUND. pt FOUND STANDING NEXT TO CHAIR, EDUCATED TO USE CALL LIGHT. CHAIR ALARM NOW IN PLACE, CALL LIGHT WITH PERSONAL BELONGINGS IN PLACE.
--- NOTE | 2023-01-03 22:30 | NUR ---
ASSESSMENT COMPLETE, SCHEDULED MEDS GIVEN-SEE EMAR. pt REMAINS AWAKE AND INTERACTIVE WITH ANIME DESIGNER. CONTINUES TO DECLINE ELEVATING BLE, EDUCATION AGAIN PROVIDED. pt STATES, "YEAH, I KNOW. IF THEY'RE NOT UP IN A LITTLE BIT AND I FORGET YOU CAN PUT THEM UP". +2 EDEMA NOTED TO BLE, WEAK PEDAL PULSES NOTED. RT ROXANN IN ROOM AND DISCUSSED POC REGARDING BIPAP. BIPAP IN STANDBY AND AVAILABLE WHEN pt IS READY FOR BED. pt HAS APPROX 250 MLS WATER IN WATER BOTTLE AND IS AWARE THAT pt IS AVAILABLE FOR ADDITIONAL WATER IN THE MORNING AT 0600 D/T FLUIDS RESTRICTION ORDER, pt VERBALIZED UNDERSTANDING BUT HAS ASKED FOR ADDITIONAL WATER 1-2 TIMES SINCE SHIFT CHANGE. WILL CONTINUE TO PROVIDE EDUCATION. IV SITE WNL, FLUSHES EASILY.
--- NOTE | 2023-01-03 23:38 | NUR ---
pt AWAKE AND RESTING IN CHAIR, CPOX IN PLACE. 3LNC IN PLACE, SPO2 AND HR WNL. RN NOE IN ROOM TO PROVIDE PRN TYLENOL.
[2023-01-04] VITALS (7 sets, daily range): BP systolic 92–113; BP diastolic 51–61
--- NOTE | 2023-01-04 00:40 | NUR ---
pt AWAKE AND AMBULATING IN HALLWAY WITH ALFONSO LIU.
--- NOTE | 2023-01-04 01:03 | NUR ---
FRESH MOUTH SWAB PROVIDED TO MOISTEN MOUGH FOLLOWING AMBULATION IN HALLWAY. pt EDUCATED AGAIN THAT FLUID RESTRICTION STARTS OVER AT 0600. pt HAS A LITTLE BIT OF WATER LEFT IN WATER BOTTLE. CALL LIGHT IN REACH, CHAIR ALARM ON FOR SAFETY.
--- NOTE | 2023-01-04 01:06 | NUR ---
CALL LIGHT ANSWERED, pt STATES, "YEAH, I CAN'T DRINK THIS, IT'S PISS WATER AND WARM. CAN I GET SOME ICE IN IT". REMAINING WATER REPLACED, WITH ICE WATER-VOLUME UNCHANGED. NO ADDITIONAL NEEDS, CALL LIGHT IN REACH. SPO2 WNL ON 3LNC, HR WNL. pt DECLINES BIPAP WHEN OFFERED.
--- NOTE | 2023-01-04 02:14 | NUR ---
3lnc in place, pt resting in chair with eyes closed. rr even and unlabored, no distress noted. spo2 92, hr 66. pt appears comfortable and very relaxed. rt ruban aware of pt's decline to wear bipap. will monitor for changes. call light in reach and chair alarm on for safety.
--- NOTE | 2023-01-04 03:30 | NUR ---
vss and prn pain medication given-see emar. 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 site cleansed with wound cleanser, PT states he has been dealing with it "for a long time". pt agrees to elevate ble but soon states, "it won't be long before i have to put them down again". pt educated on benefits to elevating ble and how it helps with edema. no additional needs, call light in reach.
--- NOTE | 2023-01-04 06:01 | NUR ---
CALL LIGHT ANSWERED, pt REQUESTING FRESH ICE WATER. PROVIDED 300MLS ICE WATER-SEE FLUID RESTRICTION ORDER. CHAIR ALARM REMAINS ON AND CALL LIGHT IN REACH. pt REPORTS PAIN IN BLE IMPROVED AND IS TOLERABLE, CONTINUES TO REFUSE TO ELEVATE BLE AND STATES, "I'M JUST TIRED". pt DECLINED BIPAP AND STATES, "NO I'M FINE, I'M STAYING AWAKE FOR NOW". CPOX IN PLACE, ON 2LNC.
--- NOTE | 2023-01-04 06:11 | NUR ---
SCHEDULED AM MEDS GIVEN- SEE EMAR.
--- NOTE | 2023-01-04 07:10 | NUR ---
REPORT RECEIVED FROM ALFONSO LARSEN. PT UP TO CHAIR, RESTING WITH EYES CLOSED. RESPRIRATIONS EVEN AND UNLABORED. PT ALLOWED TO REST. CALL LIGHT WITHIN REACH. CHAIR ALARM ON.
--- NOTE | 2023-01-04 08:12 | NUR ---
MORNING ASSESSMENT AND MEDICATION DUE. PT REMAINS UP TO CHAIR. RESTING WITH EYES CLOSED. PT AWAKENS TO MOVEMENT IN THE ROOM. PT DENIES NECK PAIN, REPORTS 8/10 "LEG" PAIN." PT DECLINES TYELNOL, STATES "THE GABAPENTIN WILL HELP." PT NOTED TO HAVE A BAG OF CHEETOHS ON HIS BED SIDE TABLE. PT HAS EATEN ~1/2 THE BAG. PT ALSO HAS A BOTTLE OF UNOPENED SODA. EDUCATION DONE WITH PT REGARDING FLUID AND SALT INTAKE AND HEART FAILURE. PT VERBALIZES UNDERSTANDING BUT STATES "WELL, I EAT WHAT I EAT AND I HAVE TO DRINK WITH THIS DRY MOUTH." ADDITIONAL MOUTH SWABS PROVIDED. PT ALERT AND OIRENTED TO ALL. LUNG SOUNDS CLEAR. NO COUGH NOTED. PT WEANED TO ROOM AIR WITH OXYGEN SATURATIONS 93-96%. WORK OF BREATHING WNL. PT REPORTS "MY BREATHING IS GOOD TODAY." HEART RATE REGULAR. +3 PITTING EDEMA CONTINUES IN BLE AND BILATERAL FEET. PT DECLIENS ELEVATION OF FEET. PTS APPITITE IMPROVING. PT ASKS FOR BREAFKAST, PROVIDED, PT EATING WNL. BELKYSVYN TO COCCYX, C/D/I. MEDICAITONS GIVEN. NO ADDITIOANL REQUESTS OR COMPLAINTS. CALL LIGHT WITHIN REACH. CHAIR ALARM ON. NO ADDITIONAL REQUESTS OR COMPLAINTS. CALL LIGHT WITHIN REACH. CHAIR ALARM ON.
--- NOTE | 2023-01-04 09:23 | NUR ---
PATIENT IN CHAIR AFTER MEAL. VITALS AND I/O'S COMPLETED. PT HAS NO OTHER REQUESTS AT THIS TIME. CALL LIGHT WITHIN REACH.
--- NOTE | 2023-01-04 09:28 | NUR ---
THIS RN TO ROOM TO CHECK ON PT. PT UP TO RESTROOM WITH STAND BY ASSIST. PT APPEARS FLUSHED AFTER RESTROOM USE. OXGYEN SATURATION 93% ON ROOM AIR EVEN WITH ACTIVITY. PT PLACED ON 1L O2 BY NC. OXGYE SATURATION 95%. PT REQUESTS ADDITIONAL WATER (HAS ALREADY HAD 600ML THIS MORNING). PT ADVISED THAT LIQUID IN HIS CUP IS MEANT TO LAST HIM UNTIL LUNCH. PT STATES "OK, I'M GOING TO DRINK MY SODA THEN." EDUCATION DONE. PT DECLINES ADDITIONAL EDUCATION. NO ADDITIONAL REQUESTS OR COMPLAINTS. CALL LIGHT WITHIN REACH.
--- NOTE | 2023-01-04 09:52 | NUR ---
PT CALL LIGHT ON. PT REQUESTS ASSISTANCE UP TO RESTROOM. PT UP TO RESTROOM, STEADY ON FEET, AWARE OF OXGYEN TUBING AND SURROUDNINGS. PT ADVANCED TO BMAP LEVEL 4: INDEPENANT. PT ENCOURAGED TO CALL IF HE NEEDS ANY ADDITIONAL ASSISTANCE. CALL LIGHT WITHIN REACH.
--- NOTE | 2023-01-04 10:08 | NUR ---
PT CALL LIGHT ON. PT REQUESTS "SOMEONE TO WALK WITH ME." PT UP TO AMBULATE IN HALLS X 2 LAPS WITH STAND BY ASSIST. MEDICATIONS GIVEN. PT BACK TO ROOM AND UP TO CHAIR. NO ADDITIONAL REQUESTS OR COMPLAINTS. CALL LIGHT WITHIN REACH.
--- NOTE | 2023-01-04 10:45 | NUR ---
pT CALL LIGHT ON. PT REQUESTS ASSISTANCE GETTING DRESSED IN CLOTHES FROM HOME. PT OFFERED SHOWER, DECLINES. UNDERWARE, LEGGINS, PANTS AND SCOCKS APPLIED. PT REPORTS HE REMOVED ALLEVYN FROM WOUND IN GLUTEA CLEFT. NEW ALLEVYN APPLIED. BARRIER CREAM APPLIED. PT UP TO RESTROOM, INDEPENDANT. OXGYEN SATUARTIONS 94% ON 1L O2 BYNC. NO ADDITIONAL REQUESTS OR COMPLAINTS. CALL LIGHT WITHIN REACH.
--- NOTE | 2023-01-04 11:36 | NUR ---
THIS RN TO ROOM TO CHECK ON PT. BLOOD SUGAR DUE. PT REMAINS UP TO CHAIR, RESTING WITH EYES CLOSED, AWAKENS TO VOICE. BLOOD SUGAR TAKE. PT REPORTS HIS LEG PAIN CONTINUES AT 8, SEE MAR FOR MEDICATION GIVEN. PT DENIES ADDITIONAL REQUESTS OR COMPLAINTS. CALL LIGHT WITHIN REACH. PT REMAINS ON 1L O2 BY MT WITH OXYGEN SATURATIONS 93% AND ABOVE.
--- NOTE | 2023-01-04 12:05 | NUR ---
LUNCH DELIVERED TO PT. MEDICATION GIVEN. PT CONTINUES TO REPOORT 8/10 PAIN IN BILATERAL LOWER EXTREMITIES AND REQUESTS HIS OXYCODONE. SEE MAR FOR MEDICATION GIVEN. ICE WATER REFILLED. NO ADDITIONAL REQUESTS OR COMPLAINTS. CALL LIGHT WITHIN REACH.
--- NOTE | 2023-01-04 13:11 | NUR ---
AFTERNOON ASSESSMENT AND MEDICATION DUE. PT REMAINS UP TO CHAIR. FINISHED WITH LUNCH. PT UP TO RESTROOM INDEPENDANTLY, STEADY ON FEET, AWARE OF OXGYEN TUBING, NO ASSISTANCE NEEDED. PT VOIDS IN URINAL AND THEN BACK TO CHAIR. PT REPORTS LEG PAIN HAS IMPROVED, NOW 4/10. PT DENIES NEED FOR ADDITIONAL PAIN MEDICAITON. PT ALERT AND ORIENTED TO ALL. LUNG SOUNDS CLEAR THROUGHOUT ALL FONTA[place]. NO COUGH NOTED. PT REMAINS ON 1L O2 BY CT FOR COMFORT. OXGYEN SATUATION 94%. OXGYEN SATUARTIONS MAINTAIN WITH ACTIVITY. HEART TONES REGULAR. +3 PITTING EDEMA CONTINUES IN BLE AND FEET. PT DECLINES ELEVATION OF LEGS. ADDITIONAL EDUCATION DONE REGARDING LOW SODIUM DIET AND FLUID RESTRICTION. PT ACKNOWLEDGES BUT REMAINS UNINTERESTED. ALLEVYN INTACTED TO GLUTEAL AREA, C/D/I. NO ADDITIONAL REQUESTS OR COMPLAINTS. ADDITIONAL MOUTH SWABS PROVIDED. CALL SILVIO TRINIDAD.
--- NOTE | 2023-01-04 15:00 | NUR ---
THIS RN TO ROOM TO CHECK ON PT. PT REMAINS UP TO CHAIR. PTS AT BEDSIDE. PT REPORTS 8/10 PAIN IN LEGS AND REQUESTS MEDICATION. SEE MAR FOR MEDICATION GIVEN. PT CONTINUES TO TOLERATE 1L O2 BY [place] WITH OXGYEN SATUARTION OF 94-96%. ADDITIONAL EDUCATION DONE WITH PT AND ABOUT FLUID RESTRICTION AND LOW SALT DIET. PUDDING PROVIDED WITH MEDICATIONS. NO ADDITIONAL REQUESTS OR COMPLAINTS. CALL LIGHT WITHIN REACH.
--- NOTE | 2023-01-04 16:19 | NUR ---
PT HERE FOR CHF AND RESPIRTORY FAILURE. PT STEADY ON FEET, INDEPENDANT AND UP WITH STAND BY ASSIST TO BEDSIDE COMODE AND RESTROOM THIS SHIFT. PT UP TO CHAIR AND TO AMBULATE. PT TOLREATING 60G CARB DIET WITH MODERATE APPITITE. PT HAS DIFFICULTY STAING WITHIN FLUID RESTRICTION, DRINKING SODA FROM HOME. HOME GLIPIZIE RESTARTED. BLOOD SUGAR CHECKS WITH SLIDING SCALE INSLUIN WITH MEALS AND HS. IV LASIX GIVEN WITH GOOD OUTPUT. LUNG SOUNDS CLEAR. PT WEANED 1L O2 BY NC. OXYGEN SATURATIONS REMAIN ABOVE 94%. PT VOIDING QUANITTY SUFFICIENT. PT USES CALL LIGHT AND MAKES NEEDS KNOWN.
--- NOTE | 2023-01-04 16:27 | NUR ---
THIS RN TO ROOM TO CHECK ON PT. PT RESTING IN CHAIR WITH EYES CLOSED. RESPIRATIONS EVEN AND UNLABORED. CALL LIGHT WITHIN REACH. PT ALLOWED TO REST UNDESTURBED.
--- NOTE | 2023-01-04 16:43 | EKG ---
[facility] [address] [place] [address] Signed Atrial-sensed ventricular-paced rhythm Biventricular pacemaker detected Abnormal ECG When compared with ECG of 07-DEC-2022 22:27, premature ventricular complexes are no longer present Vent. rate has decreased BY 28 BPM Confirmed by KIMMIE GONZALEZ MD ([id number]) on 01/04/2023 4:42:57 PM Electronically Signed By: KIMMIE GONZALEZ MD 01/04/23 1643 PATIENT NAME: RON MCKEON Electrocardiogram DATE OF : 53 PHYSICIAN: KIMMIE GONZALEZ MD REPORT #: [id number] REPORT IS CONFIDENTIAL AND NOT TO BE RELEASED WITHOUT AUTHORIZATION
--- NOTE | 2023-01-04 17:06 | NUR ---
MEDICATION DUE. DINNER DELIVERED. PT REMAINS UP TO CHAIR, RESTING WITH EYES CLOSED, AWAKENS TO MOVEMENT IN THE ROOM. PT REPORTS 8/10 ONGOING PAIN IN LEGS. PT ENCOARAGED TO AMBULATE, BRYANTIENS AT THIS TIME. MEDICATION GIVEN. ISOSORBIDE HELD PTS BLOOD PRESSURE IS OUTSIDE PARAMETERS. PT CONTINUES TO TOLERATE 1L O2 BY NC WITH OXGYEN SATUATIONS ABOVE 94%. PT DENIES ADDITIONAL REQUESTS OR COMPLAINTS. CALL LIGHT WITHIN REACH.
--- NOTE | 2023-01-04 18:29 | NUR ---
THIS RN TO ROOM TO CHECK ON PT. PT REPORTS 8/10 PAIN IN HIS LOWER LEGS. PT ENCOUARGED TO AMBULATE. PT UP TO AMBULATE IN AN WITH FOUR WHEEL WALKER AND STAND BY ASSIST ON 1L O2 BY NC X3 LAPS. PT REPORTS "BOY THIS WALKING REALLY HELPS MY LEGS." PT BACK TO ROOM AND UP TO CHAIR. ILEANALLO PROVIDED PER PT REQUEST. NO ADDITONAL REQUSTS OR COMPLAINTS. CALL LIGHT WITHIN REACH. PT REMAINS ON 1L O2 BY [place] WITH OXYGEN SATURATIONS ABOVE 94%.
--- NOTE | 2023-01-04 19:24 | NUR ---
REPORT RECEIVED FROM ALFONSO LIU. pt UP TO RESTROOM INDEPENDENTLY. 1L OXYGEN BY NC IN PLACE.
--- NOTE | 2023-01-04 20:19 | NUR ---
pt AMBULATORY IN ROOM, GAIT STEADY. URINAL EMPTIED. pt SITTING IN CHAIR. 1L OXYGEN BY NC IN PLACE, SPO2 98%. VSS. ASSESSMENT COMPLETE. 2+ EDEMA BLE. pt STATES "I WILL ELEVATED THEM LATER". LUNG SOUNDS DIMINISHED THROUGHOUT, CLEAR. IV SITE FLUSHED WNL, SL. CBG 160, SS INSULIN ADMINISTERED. pt RATES PAIN 8/10 IN LEGS BILATERALLY. PRN PAIN MEDICATION ADMINISTERED. BATTERIES IN FAN REPLACED. pt HAS CALL LIGHT IN REACH.
--- NOTE | 2023-01-04 23:37 | NUR ---
CHECKED ON pt. RESTING IN CHAIR WITH EYES CLOSED, STATES HE WAS AWAKE. COMPLAINS OF LEG PAIN. SBA TO AMBULATE WITH ALFONSO MALDONADO. 1L OXYGEN BY SC IN PLACE.
[2023-01-05] VITALS (7 sets, daily range): BP systolic 93–112; BP diastolic 55–65
--- NOTE | 2023-01-05 01:43 | NUR ---
NOTIFIED BY INVOICE CONTROL CLERK THAT pt CALLED FOR PAIN MEDICATION. CHECKED ON pt. RESTING IN CHAIR WITH EYES CLOSED. BREATHING UNLABORED. HEAD TILTED TO LEFT SIDE, NO DISTRESS NOTED. 1L OXYGEN BY NC IN PLACE.
--- NOTE | 2023-01-05 02:02 | NUR ---
pt AMBULATORY, WALKS UP TO DOORWAY. RATES PAIN 8/10 IN LEGS "ITS ALWAYS AN 8". PRN TYLENOL ADMINSITERED. pt BACK TO CHAIR. 1L OXYGEN BY NC IN PLACE. ASSESSMENT COMPLETE. pt ENCOURAGED TO ELEVATED LEGS STATES "I ALREADY DID THAT EARLIER". 2+ EDEMA BLE. WARM BLANKET PROVIDED. CALL LIGHT IN REACH.
--- NOTE | 2023-01-05 04:03 | NUR ---
pt RESTING IN CHAIR WITH EYES CLOSED. BREATHING EQUAL AND UNLABORED. NO DISTRESS NOTED. 1L OXYGEN BY NC IN PLACE.
--- NOTE | 2023-01-05 05:08 | NUR ---
CALL LIGHT ANSWERED. pt REQUESTING PRN PAIN MEDICATION AND ICE FOR WATER, ICE WATER REFRESHED. PRN PAIN MEDICATION ADMINISTERED FOR 8/10 REPORTED PAIN IN LEGS. DAILY WEIGHT 84.7 KG STANDING WEIGHT. URINAL EMPTIED. pt UP IN CHAIR. DENIES ADDITIONAL REQUESTS.
--- NOTE | 2023-01-05 07:24 | NUR ---
RECEIVED REPORT FROM SOFTWARE QUALITY SPECIALIST NURSE. PATIENT CURRENLTY ASLEEP IN HIS CHAIR. REGULAR RESPIRATIONS NOTED.
--- NOTE | 2023-01-05 09:05 | NUR ---
PATIENT IN CHAIR AND ATE LITTLE OF HIS BREAKFAST. PATIENT ADVISED THIS NURSE HE WAS JUST NOT HAVING THE FOOD THIS MORNING. PROCESSING REP DID NOT HAVE HIM ON FLUID RESTRICTIONS. CALL DOWN TO THEM WAS MADE TO FIX THIS. PATIENT CURRENLTY ON 1L OF OXGYEN AND STATS AT 97%. PATIENT STANDS AND WALKS ON HIS OWN. 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 PATIENT DENIES ANY OTHER CARES AT THIS TIME, CALL LIGHT WITHIN REACH. PATIENT IS HOPEFUL TO GO HOME TODAY. MORNING MEDICATIONS GIVEN.
--- NOTE | 2023-01-05 11:09 | NUR ---
PT SITTING IN CHAIR, O2 NC IN USE. NOTED BRUISING ON BACK OF BOTH HANDS. PT MENTIONED HE IS HAVING A TOUGH DAY. GAVE ENCOURAGEMENT, WILL FOLLOW.
--- NOTE | 2023-01-05 11:14 | NUR ---
PATIENT ASLEEP IN CHAIR. THIS NURSE HAS TRIED TO GET PATIENT TO ELEVATE LEGS BUT HE REFUSES AND ADVISES THIS NURSE THAT IT MAKES THEM HURT. PATIENT ALSO PREFERS TO SLEEP IN THE CHAIR THEN GET INTO BED.
--- NOTE | 2023-01-05 11:57 | NUR ---
IN TO SEE PATIENT, PATIENT UP IN ROOM WITH GUEST AT THE BEDSIDE. PATIENT PLANS ON RETURNING HOME AT DISCHARGE. NO NEEDS OR CONCERNS AT THIS TIME. VERIFIED WITH THE PATIENT NO CHANGES IN CASE MANAGEMENT ASSESSMENT SINCE LAST VISIT. WILL CONTINUE TO CHECK ON PATIENT DURING HIS STAY.
--- NOTE | 2023-01-05 12:44 | NUR ---
medications reconciled
--- NOTE | 2023-01-05 13:30 | NUR ---
PATIENT DENIES WANTING TO WALK THE HALLWAY AT THIS TIME. PER PATIENT HE IS PRETTY TIRED BUT ALSO GETTING UP MORE TO URINATE CURRENTLY WITH THE INCREASE OF LASIX.
--- NOTE | 2023-01-05 16:03 | NUR ---
PATIENT IN CHAIR PUTTING ON HIS JACKET. PATIENT DENIES WANTING A WARM BLANKET. ADVISED THIS NURSE HE LIKES TO WEAR IT AROUND AT HOME ALSO.
--- NOTE | 2023-01-05 18:49 | NUR ---
PATIENT JUST GOT UP TO THE BATHROOM ON HIS OWN. PATIENT TOLERATES WELL, STEADY ON FEET. PATIENT IS WAITING FOR HIS TO GET HERE TO SHOWER. HE ADVISED THIS NURSE HE ONLY SHOWERS WHEN SHE COMES TO HELP HIM. PATIENT GIVEN EVENING MEDICATIONS. PATIENT HAD ONE BM JUST NOW.
--- NOTE | 2023-01-05 19:09 | NUR ---
REPORT RECEIVED FROM ALFONSO RAMIREZ. pt RESTING IN CHAIR WITH EYES CLOSED. 1L OXYGEN BY NC IN PLACE. NO DISTRESS NOTED.
--- NOTE | 2023-01-05 20:25 | NUR ---
pt SITTING UP IN CHAIR, RESTING WITH EYES CLOSE. AWAKENS TO VOICE RN ENTERS ROOM. RATES PAIN 8/10 WITH LEGS DOWN, REFUSES TO ELEVATE STATES THAT PAIN INCREASES IF LEGS ELEVATED. PRN PAIN MEDICATIONS ADMINISTERED. ASSESSMENT COMPLETE. CBG WNL. ALLOTTED ICE WATER PROVIDED. URINAL EMPTIED. ENTERS ROOM AND TALKING WITH pt, CONVERSATION ARGUMENTATIVE. CALL LIGHT WITHIN REACH.
--- NOTE | 2023-01-05 20:47 | NUR ---
pt COMPLAINS OF PAIN IN LEFT CHEST, DESCRIBES SHARP PAIN. UNRESOLVED. pt RESTING IN CHAIR. VSS. IN ROOM. MD UPDATED ON MEDICATIONS ADMINISTERED. NO NEW ORDERS AT THIS TIME.
--- NOTE | 2023-01-05 21:00 | NUR ---
PATIENT'S CAME TO THE NURSE'S STATION AND ASKED FOR TISSUE. PROVIDED.
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
--- NOTE | 2023-01-05 22:30 | NUR ---
IN pt ROOM FOR MEDICATION ADMINISTRATION. pt RESTING IN CHAIR WITH EYES CLOSED, AWAKENS TO VOICE. URINAL EMPTIED. CALL LIGHT IN REACH.
--- NOTE | 2023-01-06 00:15 | NUR ---
CALL LIGHT ANSWERED. pt REQUESTING PRN PAIN MEDICATION FOR LEG PAIN, RATES 8/10. SLEEPING WHEN RN ENTERS ROOM, AWAKENS TO VOICE. PRN TYLENOL ADMINSITERED. pt REQUESTING SNACK. WHEN RN BACK IN ROOM WITH SF SNACK pt RESTING WITH EYES CLOSED, HEAD FORWARD, BREATHING UNLABORED. 1L OXYGEN BY NC IN PLACE.
--- NOTE | 2023-01-06 02:10 | NUR ---
pt SLEEPING, AWAKENS TO VOICE FOR SCHEDULED MEDICATION. DENIES NEEDS. pt CLOSES EYES. UP IN CHAIR. BREATHING UNLABORED WITH 1L OXYGEN BY NC.
[2023-01-06 04:12] VITALS: BP 97/62
--- NOTE | 2023-01-06 04:15 | NUR ---
CALL LIGHT ANSWERED. pt COMPLAINS OF 8/10 PAIN IN LEGS. PRN PAIN MEDICATION ADMINISTERED. ASSESSMENT COMPLETE. pt ENCOURAGED TO ELEVATE LEGS, 2-3+ EDEMA BLE. DAILY WEIGHT 83.2 KG STANDING WEIGHT. LUNG SOUNDS CLEAR THROUGHOUT ALL LOBES, 1L OXYGEN BY NC IN PLACE. SUGAR FREE SNACK PROVIDED. pt UP TO RESTROOM FOR BM AND UNMEASURED VOID INDEPENDENTLY. UP TO CHAIR AT THIS TIME.
--- NOTE | 2023-01-06 05:45 | NUR ---
PT RESTING IN CHAIR. PT ASKED IF HE WOULD LIKE A SHOWER. PT STATED NOT AT THIS TIME AND HE WILL LATER WHEN HIS IS HERE TO SHOWER HIM.
--- NOTE | 2023-01-06 07:10 | NUR ---
REPORT RECEIVED FROM ALFONSO JEFFERSON. PT UP TO CHAIR, REAMINS ON 1L O2 BY NC. PT RESTING WITH EYES CLOSED, RESPIRATIONS EVEN AND UNLABORED. CALL LIGHT WITHIN REACH. PT ALLOWED TO REST UNDESTURBED.
--- NOTE | 2023-01-06 07:19 | NUR ---
MORNING ASSESSMENT AND MEDICATION DUE. PT UP TO RESTROOM, INDEPENDANTLY, PT STEADY ON FEET, NO ASSISTANCE NEEDED. PT ALERT AND OREINTED TO ALL BUT FORGETFUL AT TIMES. PT RESPONDING APPROPRIATLY TO QUESTIONS AND CARES. PT REPORTS IV SITE HARRISON WITH FLUSH, IV DC'D PER PROTOCOL. NEW IV STARETED TO LEFT HAND PER PROTOCOL. BRISK BLOOD RETURN NOTED. IV FLUSHED AND SALINE LOCKED, ALCOHOL CAP APPLIED. LUNG SOUNDS CLEAR. WORK OF BREATHING WNL. ROOM AIR TRIAL ATTEMPTED. PT MAINTAINS OXGYEN SATURATION 98-100% ON ROOM AIR. PT INSISTS ON LEAVING NC IN PLACE "I NEED THE AIR." EDUCATION DONE WITH PT. PT CONTINUES TO LEAVE NC IN PLACE. NO COUGH NOTED. DISTANT HEART TONES CONTINUES. EDEMA TO BLE IMPROVED SINCE THURSDAY, MINIMALLY. NOW +3 IN RLE AND +2 IN LLE. EDUCATION DONE WITH PT REGARDING ELEVATING LEGS. PT DECLINES STATING "IT HURTS TOO MUCH." PT REPORTS FEELING CONSTIPATION. BOWEL TONES ACTIVE. ABDOMEN SOFT, SEE MAR FOR MEDICATION GIVEN. ALLEVYN REMAINS OVER GLUTEAL AREA, C/D/I. MEDICATIONS GIVEN. PT REMAINS UP TO CHAIR, BREAKFAST DELIVERED. PT DENIES ADDITIONAL REQUESTS OR COMPLAINTS. CALL LIGHT WITHIN REACH.
--- NOTE | 2023-01-06 08:33 | NUR ---
MEDICATION DUE. GIVEN ORDRED. PT REMAINS UP TO CHAIR, FINISHING BREAKFAST. PT DENIES ADDITIONAL REQUESTS OR COMPLAINTS. REPORTS PAIN IS UNCHANGED AND "JUST LIKE IT ALWAYS IS." NO ADDITIONAL REQUESTS OR COMPLAINTS. PT CONTINUES TO TOLLERATE ROOM AIR WITH OXYGEN SATURATIONS OF 98-100%. CALL LIGHT WITHIN REACH.
--- NOTE | 2023-01-06 08:57 | NUR ---
PATIENT GIVEN 500MG OF ORAL TYLENOL FOR 8/10 LEG PAIN. PATIENT ENCOURAGED TO AMBULATE, REMINDED PATIENT THAT HE RECENTLY HAD HIS SCHEDULED GABAPENTIN AND THAT OXYCODONE WILL NOT BE AVAILABLE UNTIL AFTER 1200.
--- NOTE | 2023-01-06 09:16 | NUR ---
THIS RN TO ROOM TO CHECK ON PT. PT RESTING WITH EYES CLOSED. RESPIRATIONS EVEN AND UNLABORED. 350ML CLEAR YELLOW URINE EMPTIED FROM URINAL. NO ADDITIONAL NEEDS AT THIS TIME. CALL LIGHT WITHIN REACH.
--- NOTE | 2023-01-06 09:43 | NUR ---
pt resting in bed. vitals and is and os complete. pt provided ice water. no needs. call light within reach
--- NOTE | 2023-01-06 10:00 | NUR ---
PT CALL LIGHT ON. PT CONTINUES TO REPORT 8/10 PAIN IN LEGS. PT ENCOURAGED TO AMBULATE. PT UP TO AMBLUATE X2 LAPS IN AN. PT REMAINS ON ROOM AIR DURING ACTIVITY WITH OXGYEN SATURATIONS 97-100%. EBS NOTED BEHIND EARS FROM NC, PT ENCOURAGED TO LEAVE NC OFF AT THIS TIME TO GIVE HIS EARS A BREAK, PT AGREES. PT REPORTS AMBULATION HELPS HIS LEG PAIN. PT ENCOUAGED TO AMBLUATE ANY TIME HE FEELS UP FOR HIT. NO ADDITIONAL REQUESTS OR COMPLAINTS. PT BACK TO ROOM AND UP TO CHAIR. CALL LIGHT WITHIN REACH.
--- NOTE | 2023-01-06 11:19 | NUR ---
DR GONZALEZ TO ROOM FOR ROUNDS, UPDATED ON PT STATUS AND ASSESSMENT. PT IRRITABLE AND STATES I SAID I WOULD GIVE HIM ONE MORE DAY AND THEN IM LEAVING, i NEED TO GET OUT AND GET SOME AIR." OXGYEN SATURATION REMAIN S98% ON ROOM AIR. PT REPORTS ONGOING 8/10 PAIN IN BLE. PT STATES "I NEED TO WALK, TO GET OUT." PT ENCOURAGED TO GET UP TO AMBULATE IN AN AD MERARY. PT DECLINES. ADDITIONAL WATER PROVIDED PER PT REQUEST. PT DENIES ADDITIONAL REQUESTS OR COMPLAINTS. CALL LIGHT WITHIN REACH.
--- NOTE | 2023-01-06 11:52 | NUR ---
SPOKE TO PATIENT ABOUT THE PLAN OF CARE. PATIENT PLANS TO GO HOME WHERE HE LIVES WITH HIS . PATIENT HAS FAMILY THAT ARE HELPFUL WHEN NEEDED. PATIENT REFUSES PLACEMENT.
--- NOTE | 2023-01-06 12:11 | NUR ---
PT ALERT, ORIENTED AND SITTING UP IN CHAIR. O2 NC IN USE. PT IRRITABLE, JUST WANTS TO GO HOME. NEEDS TO WALK, SAID HE NEEDS FRESH AIR TO WALK. COMPLAINS OF LEGS HURTING. WILL NOT PUT THEM UP, SAYS IT "HURTS TO HAVE THEM UP". GAVE SUPPORT AND ENCOURAGEMENT. SAID HE CAN'T HAVE ANY PAIN MEDS YET. WILL UPDATE RN. WILL FOLLOW
[2023-01-06 12:12] VITALS: BP 115/61
--- NOTE | 2023-01-06 12:19 | NUR ---
MEDICATION DUE. PT REMAINS UP TO CHAIR. PT REPORTS ONGOING 8/10 PAIN IN LEGS. PT DECLIENS AMBULATION. SEE MAR FOR MEDICATION GIVEN. URINAL EMPTIED OF 300ML CLEAR YELLOW URINE. PT CONTINUES TO TOLERATE ROOM AIR WITH OXYGEN SATURATIONS OF 98%. PT EATING LUNCH. NO ADDITIONAL REQUESTS OR COMPLAINTS. CALL LIGHT WITHIN REACH.
--- NOTE | 2023-01-06 13:28 | NUR ---
AFTERNOON ASSESSMENT AND MEDICATION DUE. PT REMAINS UP TO CHAIR, RESTING WITH EYES CLOSED. PT AWAKENS TO MOVEMENT IN THE ROOM. PT REPORTS LEG PAIN IS NOW 6/10 AND "BETTER." THEN A FEW MINUTES LATER PT ASKS FOR PAIN MEDICATION FOR HIS LEGS. EDUCATION DONE WITH PT AND PT STATES "OH, YOU JUST GAVE ME MY MEDICINE, OK I'M FINE." PT REPORTS FEELIGN REALLY TIRED. LUNG SOUNDS REMAIN CLEAR. PT TOELRATING ROOM AIR WITH OXGYEN SATURATIONS 98-100%. +2 PITTING EDEMA TO RLE, AND +2 PITTING EDEMA TO LLE. PT REQUESTS ASSISTANCE WITH GLUTEAL CARE. ALLEVYN REMOVED. DIGNA CARE DONE. BARRIER CREAM APPLIED AND NEW ALLEVYN PLACED. WOUND APPEARS UNCHANGED FROM ADMISSION. PT REQUESTS TO REST. VITAL SIGNS STABEL. CALL LIGHT WITHIN REACH.
[2023-01-06 13:41] VITALS: BP 98/56
--- NOTE | 2023-01-06 14:36 | NUR ---
THIS RN TO ROOM TO CHECK ON PT. PT REMAINS UP TO CHAIR. PT REPORTS LEG PAIN IS WELL CONTROLLED AT THIS TIME. PT HAS ALREADY USED AFTERNOON WATER, ADDITIONAL ICE CHIPS WITH MOUTH SWABS PROVIDED. PT DENIES ADDITIONAL REQUESTS OR COMPLAINTS. PT CONTINUES TO WEAR NC DESPITE BEING ON ROOM AIR. PT ENCOAURGE TO TAKE OFF NC, PT DECLINES. PT ENCOURAGED TOAMBULATE, DECLINES AT THIS TIME. PT DENIES ADDITIONAL REQUESTS OR COMPLAINTS. CALL LIGHT WITHIN REACH.
--- NOTE | 2023-01-06 14:55 | NUR ---
PT HERE FOR CHF AND RESPIRTORY FAILURE AND CHF EXACERBATION. PT STEADY ON FEET, INDEPENDANT TO AMBUALTE IN AN AND UP TO RESTROOM WITH FWW THIS SHIFT. PT TOLREATING 60G CARB DIET WITH MODERATE APPITITE. PT HAS DIFFICULTY STAYING WITHIN FLUID RESTRICTION AND REPORTS FEELIND DEHYDRATED. FLUID RESSTRICTION INCREASED TO 1800ML AND MOUTH SWABS PROVIDED. PRN PAIN MEDICAITONS GIVEN FOR 8/10 LEG PAIN. BLOOD SUGAR CHECKS WITH SLIDING SCALE INSLUIN WITH MEALS AND HS. IV LASIX GIVEN WITH GOOD OUTPUT. LUNG SOUNDS CLEAR THIS SHIFT. PT WEANED TO ROOM AIR WITH OXYGEN SATURATION 98-100%. PT WEARNS NC DESPITE BEING ON ROOM AIR. PT VOIDING QUANITTY SUFFICIENT. PT USES CALL LIGHT AND MAKES NEEDS KNOWN.
--- NOTE | 2023-01-06 15:09 | NUR ---
MEDICATION DUE. PT RESTING WITH EYES CLOSED. PT AWAKENS TO MOVEMENT IN THE ROOM AND REPORTS HE HAD A "GOOD NAP." PT REMAINS ON ROOM AIR WITHE OXGYEN SATURATIONS ABOVE 97%. PT REPORTS ONGOING 8/10 LEG PAIN. PT ENCOURAGED TO AMBLUATE, DECLINES. SEE MAR FOR MEDICATION GIVEN. NO ADDITIONAL REQUESTS OR COMPLAINTS. CALL LIGHT WITHIN REACH.
[2023-01-06 16:55] VITALS: BP 114/63
--- NOTE | 2023-01-06 16:57 | NUR ---
MEDICATION DUE. PT REMAINS UP TO CHAIR. PT REPORTS 8/10 LEG PAIN. PT ENCORUAGED TO AMBULATE, PT DECLINES STATING HE HAS ALREADY WALKED TODAY. MEDIATION GIVEN. 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 MEDICATIONS, DOSES, PT AND OTHER PTS RIGHTS VARIFIED BY ALFONSO ZHOU. MEDICATIONS GIVEN. DINNER WATER PROVIDED. PT NOTED TO HAVE FILLED HIS WATER UP ON HIS OWN ACCORED, UNKNOWN AMOUNT OF WATER CONSUMED. NO ADDITOINAL REQUESTS OR COMPLAINTS. PT CONTINUES TO TOLERATE ROOM AIR WITH OXYGEN SATURATIONS ABOVE 97%. PT CONTINUES TO WEAR NASAL CANULA, DECLINES REMOVING NC. NO ADDITIONAL REQUESTS OR COMPLAINTS. DINNER DELIVERED. CALL LIGHT WITHIN REACH.
--- NOTE | 2023-01-06 17:39 | NUR ---
PTS ARRIVED TO BEDSIDE. PT CALL LIGHT ON. PT REPORTS HE NEEDS PAIN MEDICATION. PT REPORTS ONGOING 8/10 LEG PAIN, SEE MAR FOR MEDICATION GIVEN. PT OFFERED SHOWER NOW THAT HIS IS HERE (PT STATES HE WOULD SHOWER WHEN HIS ARRIVED), PT DECLINES. NO ADDITIONAL REQUESTS OR COMPLAINTS. CALL LIGHT BRANDYN TRINIDAD.
[2023-01-06 18:01] VITALS: BP 107/59
--- NOTE | 2023-01-06 18:14 | NUR ---
PT CONTINUES FILLING WATER IN THE SINK. UNKNOWN QUANTITITES. DR. GONZALEZ UPDATED ON PT STATUS. NO NEW ORDERS AT THIS TIME.
--- NOTE | 2023-01-06 18:33 | NUR ---
THIS RN TO ROOM TO CHECK ON PT. PT REMAINS UP TO CHAIR, EATING SANDWICH FROM SUBWAY BROUGHT BY HIS . PT TOLERATING ROOM AIR. PT REQUESTS MORE WATER, ADVISED THAT HE IS OVER HIS LIMIT FOR THE DAY. PT DENIES ADDITIONAL REQUESTS OR COMPLAINTS. CALL LIGHT WITHIN REACH.
--- NOTE | 2023-01-06 19:30 | NUR ---
REPORT RECEIVED FROM ALFONSO LIU. pt SITTING UP IN CHAIR. 1L OXYGEN BY NC IN PLACE. DISCUSSED PLAN OF CARE WITH pt. CONTINUES TO COMPLAIN OF LEG PAIN. pt ENCOURAGED TO ELEVATE LEGS. CALL LIGHT IN REACH.
[2023-01-06 20:03] VITALS: BP 110/65
--- NOTE | 2023-01-06 20:20 | NUR ---
pt UP IN CHAIR, RATES PAIN IN LEGS 8/10, 2+ EDEMA BLE. PRN PAIN MEDICATION ADMINISTERED. SCHEDULED MEDICATIONS ADMINISTERED. IV SITE FLUSHED WNL, SL. VSS. 1L OXYGEN BY NC IN PLACE, SPO2 98%. CALL LIGHT IN REACH. SUGAR FREE PUDDING PROVIDED.
--- NOTE | 2023-01-06 22:00 | NUR ---
pt AMBULATING HALLWAY INDEPENDENTLY WITH PERSONAL WALKER. DENIES SOB. GAIT STEADY.
--- NOTE | 2023-01-06 23:50 | NUR ---
APPLIED BARRIER CREAM ON THE COCCYX AREA PER PATIENT'S REQUEST.
--- NOTE | 2023-01-07 00:06 | NUR ---
CHECKED ON pt. RESTING IN CHAIR WITH EYES CLOSED. BREATHING EQUAL AND UNLABORED. NO DISTRESS NOTED.
--- NOTE | 2023-01-07 00:26 | NUR ---
CALL LIGHT ANSWERED. pt COMPLAINS OF LEG PAIN, 04/16. STATES "IT WOKE ME UP". PRN TYLENOL ADMINISTERED. SUGAR FREE PUDDING PROVIDED. CALL LIGHT IN REACH.
--- NOTE | 2023-01-07 01:06 | NUR ---
pt AMBULATING IN HALLWAY INDEPENDENLTY WITH FWW. COMPLAINS OF LEG PAIN "I'M WARMING THEM UP". NO DISTRESS NOTED.
[2023-01-07 04:14] VITALS: BP 109/55
--- NOTE | 2023-01-07 04:26 | NUR ---
pt SITTING UP IN CHAIR, REQUESTING PRN PAIN MEDICATIONS FOR LEG PAIN, 04/16. MEDICATIONS ADMINISTERED, SEE EMAR. ASSESSMENT COMPLETE. 2+ PITTING EDEMA BLE, UNCHANGED FROM START OF SHIFT. pt CONTINUES TO SIT WITH LEGS IN DEPENDENT POSITION, REFUSES TO ELEVATE EXTREMITIES. VSS. 1L OXYGEN BY NC IN PLACE. LUNG SOUNDS CLEAR THROUGHOUT ALL LOBES. CALL LIGHT IN REACH.
--- NOTE | 2023-01-07 07:23 | NUR ---
REPORT RECEIVED FROM ALFONSO JEFFERSON. PT RESTING UP TO CHAIR WITH EYES CLOSED, RESPIRATIONS EVEN AND UNLABORED. BED RAILS UP. CALL LIGHT WITHIN REACH. PT ALLOWED TO REST UNDSTURBED.
[2023-01-07 09:26] VITALS: BP 113/66
--- NOTE | 2023-01-07 09:46 | NUR ---
MORNING ASSESSMENT AND MEDICATION DUE. PT UP TO CHAIR. PT REPORTS ONGOING LEG PAIN AT 8/10. SEE MAR FOR MEDICAITON GIVEN. PT ALERT AND ORIENTED TO ALL. PT ENCORUAGED TO AMBULATE AND STATES "I WILL LATER TODAY." LUNG SOUNDS CLEAR. PT REMAINS ON 1L O2 BY NC, OXGYEN SATUARTION 100% ON 2L O2 BY NC. INSTUCTIONS FROM RESPIRATORY THERAPY NOT TO WEAN PT. PT REMAINS ON 2L O2 BY NC. +2 PITTING EDEMA IN RLE, +1 IN RLE. PT REPORTS HIS FEET LOOK "MUCH BETTER, THE SWELLING IS WAY DOWN." PT REQUESTS STOOL SOFTENERS "JUST IN CASE." PROVIDED. ALLEVYN TO GLUTEAL AREA REMAINS C/D/I. ICE WATER PROVIDED. PT DENIES ADDITIONAL REQUESTS OR COMPLAINTS. CALL LIGHT WITHIN REACH. BED RAILS UP.
--- NOTE | 2023-01-07 10:37 | NUR ---
THIS RN TO ROOM TO CHECK ON PT. PT UP TO CHAIR, REPORTS LEG PAIN CONTINUES, UNCHANGED. PT ENCORUAGED TO AMBULATE, PT DECLINES. NO ADDITIONAL REQUESTS OR COMPLAINTS. CALL LIGHT WITHIN REACH.
--- NOTE | 2023-01-07 11:40 | NUR ---
HOURLY ROUNDING: PT UP TO CHAIR, PT TOLERATING 2L O2 BY NC. PT DENIES REQUESTS OR COMPLAINTS STATING "I'M JUST WAITING FOR THE DOCTOR TO TELL ME I CAN GO HOME." NO ADDITIONAL REQUESTS OR COMPLAINTS. CALL LIGHT WITHIN REACH.
[2023-01-07] MEDS ORDERED: METOLAZONE2.5 MG PO (11:55)
[2023-01-07 12:18] VITALS: BP 119/86
--- NOTE | 2023-01-07 12:19 | NUR ---
PT READY FOR DISCHARGE. PT UP TO CHAIR AND EATING LUNCH. PT DRESSED IN CLOTHES FROM HOME. ASKS FOR ASSISTANCE APPLYING BARRIER CREAM TO GLUTEAL AREA. PT SHOWN HOW TO APPLY CREAM AT HOME ON HIS OWN. CREAM APPLIED. MEDICATIONS GIVEN PRIOR TO DISCHARGE PER DR GONZALEZ. PT REPORTS ONGOING 8/10 PAIN IN LEGS, SEE MAR FOR MEDICATION GIVEN. IV DC'D PER PROTOCOL. GAUZE AND COBAN APPLIED. DISCHARGE INSTRUCTIONS REVIEWED WITH PT. PT VERBALIZES UNDERSTANDING OF INSTRUCTIONS, MEDICATIONS, FOLLOW UP, AND LABS BEFORE FOLLOW UP APPOINTMENT. HOME OXYGEN USE REVIEWED WITH PT IN DETAIL. PT REPORTS ALL HIS QUESTIONS HAVE BEEN ANSWERED. PT EATING LUNCH AND WAITING FOR HIS RIDE HOME. NO ADDITIONAL REQUESTS OR COMPLAINTS. CALL LIGHT WITHIN REACH.
--- NOTE | 2023-01-07 12:48 | NUR ---
PT SITTING IN CHAIR, DRESSED AND WATCHING TV. PT VERY CLEARLY STATES: "I AM LEAVING TODAY", WAITING FOR DR GONZALEZ.GAVE ENCOURAGEMENT, SUPPORT. PT THANKED ME FOR STOPPING BY. GAVE BLESSING AND WILL FOLLOW
--- NOTE | 2023-01-12 13:58 | NUR ---
Heart faiure post discharge follow up call- Bob Will states he is following DC instructions and is watching him for symptoms. Reminded patient of need for low sodium food choices. has the diuretic medications ordered at DC and he has f/u appointment on .
== END 2023-01-07 13:43 | disposition home or self-care (01) | DRG 291 ==
LOC: ED 03:52 → CCU 03:54 → MS 11:13
PROVIDERS: ADMIT Internal Medicine; ATTEND Internal Medicine
DX: I13.0 Hypertensive heart and chronic kidney disease with heart failure and stage 1 through stage 4 chronic kidney disease, or unspecified chronic kidney disease (principal); I50.23 Acute on chronic systolic (congestive) heart failure; J96.90 Respiratory failure, unspecified, unspecified whether with hypoxia or hypercapnia; N18.4 Chronic kidney disease, stage 4 (severe); I25.10 Atherosclerotic heart disease of native coronary artery without angina pectoris; E11.22 Type 2 diabetes mellitus with diabetic chronic kidney disease; E03.9 Hypothyroidism, unspecified; Z20.822 Contact with and (suspected) exposure to COVID-19; G89.4 Chronic pain syndrome; E79.0 Hyperuricemia without signs of inflammatory arthritis and tophaceous disease; J44.9 Chronic obstructive pulmonary disease, unspecified; M19.90 Unspecified osteoarthritis, unspecified site; E87.6 Hypokalemia; E78.00 Pure hypercholesterolemia, unspecified; Z88.8 Allergy status to other drugs, medicaments and biological substances; Z79.82 Long term (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; Z79.899 Other long term (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; Z79.890 Hormone replacement therapy; Z79.84 Long term (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 of oral hypoglycemic drugs; Z79.02 Long term (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 of antithrombotics/antiplatelets; I25.2 Old myocardial infarction; Z95.5 Presence of coronary angioplasty implant and graft; Z86.73 Personal history of transient ischemic attack (TIA), and cerebral infarction without residual deficits; Z87.891 Personal history of nicotine dependence; Z90.49 Acquired absence of other specified parts of digestive tract; Z98.890 Other specified postprocedural states; Z87.09 Personal history of other diseases of the respiratory system; Z95.0 Presence of cardiac pacemaker; Z92.81 Personal history of extracorporeal membrane oxygenation (ECMO)
CPT/HCPCS: 36415; 71045; 80048; 80053; 83036; 83735; 83880; 84484; 85025; 87502; 93005; 93010; 94640; 94660; 94760; 96374; 96375; 96376; 99285-25; A9270; C9803; G0378; J1650; J1815; J1940; J2930; U0003